=== PATIENT | female | born 1965 | race African-American/Black ===

== ENCOUNTER 2017-05-31 11:05 | Emergency (ER) | payer OTHER ==
--- NOTE | 2017-05-31 11:53 | ER ---
Nurse's Notes [facility] Name: Chartio Michael Age: 52 yrs Sex: Female : 1965 Arrival Date: 05/31/2017 Time: 11:11 Bed 13 Private MD: Diagnosis: Low back pain Presentation: 05/31 11:23 Presenting complaint: Patient states: Strained back getting out of bed yesterday, c/o hb low back pain 06/20. Transition of care: patient was not received from another setting of care. Onset of symptoms was May 30, 2017. Initial Sepsis Screen: Does the patient meet any 2 criteria? No. Patient's initial sepsis screen is negative. Does the patient have a suspected source of infection? No. Patient's initial sepsis screen is negative. Care prior to arrival: None. 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 - Social history:: Smoking status: Patient/guardian denies using tobacco. Screenin:41 Abuse screen: Denies threats or abuse. Denies injuries from another. Nutritional aj screening: No deficits noted. Tuberculosis screening: No symptoms or risk factors identified. Fall Risk None identified. Assessment: 11:41 General: Appears in no apparent distress. comfortable, Behavior is calm, cooperative, aj appropriate for age. Pain: Complains of pain in low back area and mid back area. Neuro: Level of Consciousness is awake, alert, obeys commands, Oriented to person, place, time, situation. Respiratory: Airway is patent Respiratory effort is even, unlabored, Respiratory pattern is regular, symmetrical. : Denies burning with urination, urinary frequency, urgency, vaginal bleeding. Derm: Skin is normal. Musculoskeletal: Circulation, motion, and sensation intact. Range of motion: intact in all extremities, Reports pain in low back area and mid back area. 12:24 Reassessment: Patient appears in no apparent distress at this time. No changes from aj previously documented assessment. Patient and/or family updated on plan of care and expected duration. Pain level reassessed. Patient is alert, oriented x 3, equal unlabored respirations, skin warm/dry/pink. Vital Signs: 11:24 BP 174 / 97; Pulse 79; Resp 14; Temp 97.8; Pulse Ox 100% on R/A; Weight 72.57 kg; hb Height 5 ft. 3 in. (160.02 cm); Pain 5/10; 11:24 Body Mass Index 28.34 (72.57 kg, 160.02 cm) hb ED Course: 11:11 Patient arrived in ED. sb2 11:24 Triage completed. hb 11:25 Arm band placed on left wrist. 11:31 Chi Holder PA is PHCP. cp 11:31 Alexys Yarbrough MD is Attending Physician. cp 11:41 Chichi Staley, RN is Primary Nurse. aj 11:41 Patient has correct armband on for positive identification. aj 12:24 No provider procedures requiring assistance completed. Patient did not have IV access aj during this emergency room visit. Administered Medications: No medications were administered Outcome: 11:52 Discharge ordered by MD. cp 12:24 Discharged to home ambulatory. aj 12:24 Condition: good 12:24 Discharge instructions given to patient, Instructed on discharge instructions, follow up and referral plans. medication usage, Demonstrated understanding of instructions, follow-up care, medications, Prescriptions given X 2. 12:25 Patient left the ED. aj Signatures: Chichi Staley RN Chi Yanez PA PA cp Baxter, Heather, RN RN Alice Young sb2
--- NOTE | 2017-05-31 11:53 | EDPHYS ---
Physician Documentation [facility] Name: Charito Michael Age: 52 yrs Sex: Female : 1965 Arrival Date: 05/31/2017 Time: 11:11 Bed 13 Private MD: ED Physician Alexys Yarbrough HPI: 05/31 11:39 This 52 yrs old Black Female presents to ER via Ambulatory with complaints of Back Pain.cp 11:39 The patient presents with pain that is acute. The symptoms are located in the mid back cp area. Onset: The symptoms/episode began/occurred this morning. The pain does not radiate. Associated signs and symptoms: Pertinent negatives: abdominal pain, chest pain, constipation, dysuria, fever, hematuria, incontinence, numbness, tingling, urinary retention, weakness. 11:40 The problem was sustained injury occurred getting out of bed this morning. 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 - Social history:: Smoking status: Patient/guardian denies using tobacco. ROS: 11:41 Eyes: Negative for injury, pain, redness, and discharge. cp 11:41 Constitutional: Negative for body aches, chills, fever, poor PO intake. 11:41 ENT: Negative for drainage from ear(s), ear pain, sore throat, difficulty swallowing, difficulty handling secretions. 11:41 Neck: Negative for pain with movement, pain at rest, stiffness, tenderness, bony tenderness. 11:41 Cardiovascular: Negative for chest pain, edema, palpitations. 11:41 Respiratory: Negative for cough, shortness of breath, wheezing. 11:41 Abdomen/GI: Negative for abdominal pain, nausea, vomiting, and diarrhea, constipation, black/tarry stool, rectal bleeding, bowel incontinence. 11:41 Back: Positive for pain at rest, pain with movement, of the mid back area, Negative for decreased range of motion. 11:41 : Negative for urinary symptoms, flank pain, difficulty urinating, bladder incontinence. 11:41 Skin: Positive for rash, of the pelvis. 11:41 Neuro: Negative for altered mental status, headache, numbness, tingling, weakness. 11:41 All other systems are negative. Exam: 11:44 Head/Face: Normocephalic, atraumatic. cp 11:44 Constitutional: The patient appears in no acute distress, alert, awake, comfortable, non-diaphoretic, non-toxic, well developed, well nourished. 11:44 Eyes: Periorbital structures: appear normal, Conjunctiva: normal, no exudate, no cp injection, Lids and lashes: appear normal, bilaterally. 11:44 ENT: External ear(s): are unremarkable, Nose: is normal, Mouth: is normal. 11:44 Chest/axilla: Inspection: normal. 11:44 Cardiovascular: Rate: normal, Rhythm: regular. 11:44 Respiratory: the patient does not display signs of respiratory distress, Respirations: normal, no use of accessory muscles, no retractions, no splinting, no tachypnea, labored breathing, is not present, Breath sounds: are clear throughout, no decreased breath sounds, no stridor, no wheezing. 11:44 Abdomen/GI: Inspection: abdomen appears normal, Palpation: abdomen is soft and non-tender, in all quadrants, rebound tenderness, is not appreciated, voluntary guarding, is not appreciated, involuntary guarding, is not appreciated. 11:44 Back: pain, that is mild, of the mid back area, ROM is normal, vertebral tenderness, is not appreciated, muscle spasm, is not present, Straight leg raises: of both lower extremities does not illicit pain. 11:44 Neuro: Motor: moves all fours, strength is normal, Sensation: no obvious gross deficits, Gait: is steady, Deep tendon reflexes are 2+ (normal) in the right patellar, right Achilles, left patellar and left Achilles. Vital Signs: 11:24 BP 174 / 97; Pulse 79; Resp 14; Temp 97.8; Pulse Ox 100% on R/A; Weight 72.57 kg; hb Height 5 ft. 3 in. (160.02 cm); Pain 5/10; 11:24 Body Mass Index 28.34 (72.57 kg, 160.02 cm) hb MDM: 11:31 Patient medically screened. cp 11:50 Data reviewed: vital signs, nurses notes, lab test result(s), and as a result, I will cp discharge patient. 11:50 Differential diagnosis: Pyelonephritis ruptured disc, sprain, UTI, spinal stenosis, cp cauda equina. Counseling: I had a detailed discussion with the patient and/or guardian regarding: the historical points, exam findings, and any diagnostic results supporting the discharge/admit diagnosis, lab results, the need for outpatient follow up, a family practitioner, to return to the emergency department if symptoms worsen or persist or if there are any questions or concerns that arise at home. Response to treatment: There is no appreciated change of the patient's symptoms at this time. 05/31 11:39 Order name: Urine Dipstick--Ancillary (enter results); Complete Time: 12:18 bd 05/31 12:18 Interpretation: Normal except: UPROT 1+. cp Administered Medications: No medications were administered Disposition: 15:58 Co-signature as Attending Physician, Alexys Yarbrough MD I agree with the assessment and kdr plan of care. Disposition: 05/31/17 11:52 Discharged to Home. Impression: Low back pain. - Condition is Stable. - Discharge Instructions: Back Pain, Adult, Back Exercises, [id number]. - Prescriptions for Anaprox DS 550 mg Oral Tablet - take 1 tablet by ORAL route every 12 hours As needed; 20 tablet. Cyclobenzaprine 10 mg Oral Tablet - take 1 tablet by ORAL route every 8 hours As needed no driving while taking medication; 15 tablet. - Medication Reconciliation Form, Thank You Letter, Antibiotic Education, Prescription Opioid Use form. - Follow up: Private Physician; When: 1 - 2 days; Reason: Recheck today's complaints. - Problem is new. - Symptoms are unchanged. Signatures: Dispatcher [employer] Chichi Frausto RN RN aj Rittger, Kevin, MD MD kdr Page, Corey, PA PA cp Baxter, Heather, RN RN Corrections: (The following items were deleted from the chart) 06/01 10:24 05/31 12:00 Differential diagnosis: Cholelithiasis chronic back pain, Pyelonephritis cp ruptured disc, UTI, pyelonephritis, spinal stenosis cp
[2017-05-31 12:13] LABS: Urine Blood NEGATIVE (NEG); Urine Glucose NEGATIVE (NEG); Urine Protein 1+ (NEG); Urine pH 6.5 (5.0-7.0)
[2017-05-31 12:44] VITALS: BP 174/97; TEMP 97.8; O2SAT 100
== END 2017-05-31 12:25 | disposition home or self-care (01) ==
LOC: ER 11:05
DX: M54.5 Low back pain (principal); I10 Essential (primary) hypertension; Z21 Asymptomatic human immunodeficiency virus [HIV] infection status
CPT/HCPCS: 81003; 99282

== ENCOUNTER 2017-06-04 12:14 | Emergency (ER) | payer OTHER ==
--- NOTE | 2017-06-04 13:11 | EDPHYS ---
Physician Documentation [facility] Name: Charito Michael Age: 52 yrs Sex: Female : 1965 Arrival Date: 06/04/2017 Time: 12:16 Bed Treatment Private MD: Andrea Alvares ED Physician Ac Nixon HPI: 06/04 13:06 This 52 yrs old Black Female presents to ER via Ambulatory with complaints of Toothache.rn 13:06 The patient presents with pain. The problem is located in the mouth. Onset: The rn symptoms/episode began/occurred 1 month(s) ago. Duration: The symptoms are intermittent. Severity of symptoms: At their worst the symptoms were moderate, in the emergency department the symptoms are unchanged. The patient has experienced similar episodes in the past. The patient has been recently seen by a physician:. Reports tooth pain for 1 month, sees dentist tomorrow, states pain bothering her more today, no changes, no fever, no abscess, here for "pain pill". . 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 - Social history:: Smoking status: Patient/guardian denies using tobacco. - Family history:: not pertinent. - Hospitalizations: : No recent hospitalization is reported. ROS: 13:06 Constitutional: Negative for fever, chills, and weight loss, Eyes: Negative for injury, rn pain, redness, and discharge, ENT: + dental/gum pain Neck: Negative for injury, pain, and swelling, Cardiovascular: Negative for chest pain, palpitations, and edema, Respiratory: Negative for shortness of breath, cough, wheezing, and pleuritic chest pain, Abdomen/GI: Negative for abdominal pain, nausea, vomiting, diarrhea, and constipation, MS/Extremity: Negative for injury and deformity, Skin: Negative for injury, rash, and discoloration, Neuro: Negative for headache, weakness, numbness, tingling, and seizure. Exam: 13:06 Constitutional: This is a well developed, well nourished patient who is awake, alert, rn and in no acute distress. Head/Face: Normocephalic, atraumatic. Eyes: Pupils equal round and reactive to light, extra-ocular motions intact. Lids and lashes normal. Conjunctiva and sclera are non-icteric and not injected. Cornea within normal limits. Periorbital areas with no swelling, redness, or edema. ENT: + poor dentition with majority of teeth absent, no signs of abscess/swelling/exudate, MMM Neck: Trachea midline, no thyromegaly or masses palpated, and no cervical lymphadenopathy. Supple, full range of motion without nuchal rigidity, or vertebral point tenderness. No Meningismus. Vital Signs: 12:25 BP 178 / 96; Pulse 93; Resp 17; Temp 97.6(TE); Pulse Ox 99% on R/A; Weight 72.57 kg tw2 (R); Height 5 ft. 3 in. (160.02 cm); Pain 3/10; 12:25 Body Mass Index 28.34 (72.57 kg, 160.02 cm) tw2 MDM: 13:03 Patient medically screened. rn 13:06 Differential diagnosis: dental caries, gingivitis, dental abscess, gingivostomatitis. rn Data reviewed: vital signs, nurses notes, and as a result, I will discharge patient. Counseling: I had a detailed discussion with the patient and/or guardian regarding: the historical points, exam findings, and any diagnostic results supporting the discharge/admit diagnosis, the need for outpatient follow up, to return to the emergency department if symptoms worsen or persist or if there are any questions or concerns that arise at home. Special discussion: I discussed with the patient/guardian in detail that at this point there is no indication for admission to the hospital. It is understood, however, that if the symptoms persist or worsen the patient needs to return immediately for re-evaluation. Based on the history and exam findings, there is no indication for further emergent testing or inpatient evaluation. I discussed with the patient/guardian the need to see a dentist for further evaluation of the symptoms. ED course: Recommended outpt oral OTC meds and dental f/u tomorrow no signs of acute infection needing drainage/I\\T\\D today in ER, has dental f/u tomorrow.. Administered Medications: No medications were administered Disposition: 06/04/17 13:11 Discharged to Home. Impression: Dentalgia. - Condition is Stable. - Discharge Instructions: Dental Pain. - Medication Reconciliation Form, Thank You Letter, Antibiotic Education, Prescription Opioid Use form. - Follow up: Private Physician; When: Tomorrow; Reason: Recheck today's complaints, Re-evaluation by your physician. - Problem is an ongoing problem. - Symptoms are unchanged. Signatures: Kelly Deleon, RN RN iw Ac Nixon MD MD rn Wise, Tara, RN RN tw2
--- NOTE | 2017-06-04 13:11 | ER ---
Nurse's Notes [facility] Name: Charito Michael Age: 52 yrs Sex: Female : 1965 Arrival Date: 06/04/2017 Time: 12:16 Bed Treatment Private MD: Andrea Alvares Diagnosis: Dentalgia Presentation: 06/04 12:24 Presenting complaint: Patient states: "i get my teeth fixed tomorrow but it started tw2 hurting real bad". Transition of care: patient was not received from another setting of care. Onset of symptoms was June 04, 2017. Initial Sepsis Screen: Does the patient meet any 2 criteria? No. Patient's initial sepsis screen is negative. Does the patient have a suspected source of infection? No. Patient's initial sepsis screen is negative. Care prior to arrival: None. 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 - Social history:: Smoking status: Patient/guardian denies using tobacco. - Family history:: not pertinent. - Hospitalizations: : No recent hospitalization is reported. Screenin:17 Abuse screen: Denies threats or abuse. Denies injuries from another. Nutritional iw screening: No deficits noted. Tuberculosis screening: No symptoms or risk factors identified. Fall Risk None identified. Assessment: 13:17 General: Appears in no apparent distress. Behavior is calm, cooperative. Pain: iw Complains of pain in mouth. Neuro: Level of Consciousness is awake, alert, obeys commands, Oriented to person, place, time, situation, Moves all extremities. Full function. Cardiovascular: Patient's skin is warm and dry. Respiratory: Respiratory effort is even, unlabored. EENT: Reports pain. Musculoskeletal: Range of motion: intact in all extremities. Vital Signs: 12:25 BP 178 / 96; Pulse 93; Resp 17; Temp 97.6(TE); Pulse Ox 99% on R/A; Weight 72.57 kg tw2 (R); Height 5 ft. 3 in. (160.02 cm); Pain 3/10; 12:25 Body Mass Index 28.34 (72.57 kg, 160.02 cm) tw2 ED Course: 12:16 Patient arrived in ED. rg4 12:17 Andrea Alvares MD is Private Physician. rg4 12:25 Triage completed. tw2 12:25 Arm band placed on. tw2 13:03 Ac Nixon MD is Attending Physician. rn 13:17 Kelly Deleon RN is Primary Nurse. iw 13:18 No provider procedures requiring assistance completed. Patient did not have IV access iw during this emergency room visit. 13:22 Patient has correct armband on for positive identification. iw Administered Medications: No medications were administered Outcome: 13:11 Discharge ordered by . rn 13:22 Discharged to home ambulatory. iw 13:22 Condition: good 13:22 Discharge instructions given to patient, Instructed on discharge instructions, follow up and referral plans. Demonstrated understanding of instructions, follow-up care. 13:22 Patient left the ED. iw Signatures: Kelly Deleon, RN RN iw Ac Nixon MD MD rn Wise, Tara, RN RN tw2 Quyen Vela rg4
[2017-06-04 13:36] VITALS: BP 178/96; TEMP 97.6; O2SAT 99
== END 2017-06-04 13:22 | disposition home or self-care (01) ==
LOC: ER 12:14
DX: K08.89 Other specified disorders of teeth and supporting structures (principal); I10 Essential (primary) hypertension; Z21 Asymptomatic human immunodeficiency virus [HIV] infection status
CPT/HCPCS: 99281

== ENCOUNTER 2017-07-11 15:05 | Emergency (ER) | payer OTHER ==
--- NOTE | 2017-07-11 16:11 | ER ---
Nurse's Notes [facility] Name: Charito Michael Age: 52 yrs Sex: Female : 1965 Arrival Date: 07/11/2017 Time: 15:09 Bed 8 Private MD: Andrea Alvares Diagnosis: Bronchitis, not specified as acute or chronic Presentation: 07/11 15:15 Presenting complaint: Patient states: Cough and congestion that is chronic and has not aj improved. Transition of care: patient was not received from another setting of care. Onset of symptoms was April 2017. Care prior to arrival: None. 15:15 Method Of Arrival: Ambulatory aj 15:15 Acuity: GIULIANO 4 aj 16:20 Risk Assessment: Do you want to hurt yourself or someone else? Patient reports no iw desire to harm self or others. Initial Sepsis Screen: Does the patient meet any 2 criteria? No. Patient's initial sepsis screen is negative. Does the patient have a suspected source of infection? No. Patient's initial sepsis screen is negative. Triage Assessment: 15:16 General: Appears in no apparent distress. comfortable, Behavior is calm, cooperative, aj appropriate for age. Pain: Denies pain. EENT: Reports nasal congestion nasal discharge. Neuro: Level of Consciousness is awake, alert, obeys commands, Oriented to person, place, time, situation, Appropriate for age. Respiratory: Reports cough that is Breath sounds are clear bilaterally. Derm: Skin is intact, is healthy with good turgor, Skin is pink, warm \\T\\ dry. normal. 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 - Social history:: Smoking status: Patient/guardian denies using tobacco. - Ebola Screening: : Patient negative for fever greater than or equal to 101.5 degrees Fahrenheit, and additional compatible Ebola Virus Disease symptoms Patient denies exposure to infectious person Patient denies travel to an Ebola-affected area in the 21 days before illness onset No symptoms or risks identified at this time. Screenin:26 Abuse screen: Denies threats or abuse. Denies injuries from another. Nutritional iw screening: No deficits noted. Tuberculosis screening: No symptoms or risk factors identified. Fall Risk None identified. Assessment: 15:26 General: Appears in no apparent distress. Behavior is calm, cooperative. Pain: Denies iw pain. Neuro: Level of Consciousness is awake, alert, obeys commands, Oriented to person, place, time, Moves all extremities. Full function. Cardiovascular: Patient's skin is warm and dry. Respiratory: Reports cough that is productive, Airway is patent Respiratory effort is even, unlabored, Breath sounds are clear bilaterally. Derm: Skin is pink, warm \\T\\ dry. normal. Musculoskeletal: Range of motion: intact in all extremities. Vital Signs: 15:16 BP 139 / 79; Pulse 96; Resp 19; Temp 97.3; Pulse Ox 100% on R/A; Weight 81.65 kg; aj Height 5 ft. 3 in. (160.02 cm); 15:16 Body Mass Index 31.89 (81.65 kg, 160.02 cm) aj ED Course: 15:09 Patient arrived in ED. mr 15:09 Andrea Alvares MD is Private Physician. mr 15:16 Triage completed. aj 15:16 Arm band placed on left wrist. Patient placed in an exam room. aj 15:18 Brown Moreland NP is PHCP. pm1 15:18 Alexys Yarbrough MD is Attending Physician. pm1 15:26 Kelly Deleon, HALLE is Primary Nurse. iw 15:26 Patient has correct armband on for positive identification. iw 15:26 No provider procedures requiring assistance completed. Patient did not have IV access iw during this emergency room visit. 15:55 Patient moved to radiology via wheelchair. ml 15:58 X-ray completed. Patient tolerated procedure well. Patient moved back from radiology. ml 15:59 Chest Pa And Lat (2 Views) XRAY In Process Unspecified. EDMS 16:10 Andrea Alvares MD is Referral Physician. pm1 Administered Medications: No medications were administered Outcome: 16:10 Discharge ordered by MD. pm1 16:19 Discharged to home ambulatory. iw 16:19 Condition: good 16:19 Discharge instructions given to patient, Instructed on discharge instructions, follow up and referral plans. medication usage, Demonstrated understanding of instructions, follow-up care, medications, Prescriptions given X 1. 16:20 Patient left the ED. iw Signatures: Dispatcher [employer] EDChichi Wilson, Samira Nelson RN, Irene, RN RN iw Lopez, Brown Jackson, WARP KNITTER WARP KNITTER pm1
--- NOTE | 2017-07-11 16:11 | EDPHYS ---
Physician Documentation [facility] Name: Charito Michael Age: 52 yrs Sex: Female : 1965 Arrival Date: 07/11/2017 Time: 15:09 Bed 8 Private MD: Andrea Alvares ED Physician Alexys Yarbrough HPI: 07/11 15:34 This 52 yrs old Black Female presents to ER via Ambulatory with complaints of Cough, pm1 Congestion. 15:34 The patient or guardian reports cough, with productive sputum, that is green. Onset: pm1 The symptoms/episode began/occurred 1 week(s) ago. Modifying factors: The symptoms are alleviated by nothing, the symptoms are aggravated by nothing. Associated signs and symptoms: Pertinent positives: rhinorrhea, Pertinent negatives: chest pain, ear ache, fever, sore throat, SOB. The patient has experienced similar episodes in the past, a few times. The patient has not recently seen a physician, the patient's primary care provider is Dr. Alvares. 15:34 Patient denies history of CHF. pm1 VICE PROVOST: 15:16 LMP N/A - Post-menopause aj Historical: - Allergies: 15:16 NKA; aj - Home Meds: 15:16 "blood pressure pills" [Active]; "pain pills" [Active]; alprazolam 2 mg Oral tab 1 tab aj 3 times per day [Active]; - PMHx: 15:16 CHF; COPD; HIV; Hypertension; seasonal allergies; aj - PSHx: 15:16 None; aj - Immunization history:: Adult Immunizations up to date. - Social history:: Smoking status: Patient/guardian denies using tobacco. - Ebola Screening: : Patient negative for fever greater than or equal to 101.5 degrees Fahrenheit, and additional compatible Ebola Virus Disease symptoms Patient denies exposure to infectious person Patient denies travel to an Ebola-affected area in the 21 days before illness onset No symptoms or risks identified at this time. ROS: 15:34 Constitutional: Negative for fever, chills, and weight loss, Eyes: Negative for injury, pm1 pain, redness, and discharge, ENT: Negative for injury, pain, and discharge, Neck: Negative for injury, pain, and swelling, Cardiovascular: Negative for chest pain, palpitations, and edema. 15:34 Abdomen/GI: Negative for abdominal pain, nausea, vomiting, diarrhea, and constipation, Back: Negative for injury and pain, MS/Extremity: Negative for injury and deformity, Skin: Negative for injury, rash, and discoloration, Neuro: Negative for headache, weakness, numbness, tingling, and seizure. 15:34 Respiratory: Positive for cough, with green sputum, Negative for dyspnea on exertion, shortness of breath, wheezing. Exam: 15:34 Constitutional: This is a well developed, well nourished patient who is awake, alert, pm1 and in no acute distress. Head/Face: Normocephalic, atraumatic. Eyes: Pupils equal round and reactive to light, extra-ocular motions intact. Lids and lashes normal. Conjunctiva and sclera are non-icteric and not injected. Cornea within normal limits. Periorbital areas with no swelling, redness, or edema. ENT: Nares patent. No nasal discharge, no septal abnormalities noted. Tympanic membranes are normal and external auditory canals are clear. Oropharynx with no redness, swelling, or masses, exudates, or evidence of obstruction, uvula midline. Mucous membranes moist. Neck: Trachea midline, no thyromegaly or masses palpated, and no cervical lymphadenopathy. Supple, full range of motion without nuchal rigidity, or vertebral point tenderness. No Meningismus. Chest/axilla: Normal chest wall appearance and motion. Nontender with no deformity. No lesions are appreciated. Cardiovascular: Regular rate and rhythm with a normal S1 and S2. No gallops, murmurs, or rubs. Normal PMI, no JVD. No pulse deficits. 15:34 Abdomen/GI: Soft, non-tender, with normal bowel sounds. No distension or tympany. No guarding or rebound. No evidence of tenderness throughout. Back: No spinal tenderness. No costovertebral tenderness. Full range of motion. Skin: Warm, dry with normal turgor. Normal color with no rashes, no lesions, and no evidence of cellulitis. MS/ Extremity: Pulses equal, no cyanosis. Neurovascular intact. Full, normal range of motion. 15:34 Respiratory: the patient does not display signs of respiratory distress, Respirations: normal, Breath sounds: are clear throughout. 15:34 Neuro: Orientation: is normal, Motor: moves all fours, strength is 5/5 in all extremities, Gait: is steady, at a normal pace, without difficulty. Vital Signs: 15:16 BP 139 / 79; Pulse 96; Resp 19; Temp 97.3; Pulse Ox 100% on R/A; Weight 81.65 kg; aj Height 5 ft. 3 in. (160.02 cm); 15:16 Body Mass Index 31.89 (81.65 kg, 160.02 cm) aj MDM: 15:18 Patient medically screened. pm1 15:36 Data reviewed: vital signs. Data interpreted: Pulse oximetry: on room air is 100 %. pm1 Interpretation: normal. 16:09 ED course: Will give antibiotic therapy for diagnosis of bronchitis due to HIV history. pm1 16:10 Counseling: I had a detailed discussion with the patient and/or guardian regarding: the pm1 historical points, exam findings, and any diagnostic results supporting the discharge/admit diagnosis, radiology results, the need for outpatient follow up, to return to the emergency department if symptoms worsen or persist or if there are any questions or concerns that arise at home. 07/11 16:19 Order name: Urine Dipstick--Ancillary (enter results) bd 07/11 15:27 Order name: Chest Pa And Lat (2 Views) XRAY pm1 07/11 15:28 Order name: Urine Dipstick-Ancillary (obtain specimen); Complete Time: 16:13 pm1 07/11 15:28 Order name: Urine Test (obtain specimen); Complete Time: 16:18 pm1 Administered Medications: No medications were administered Disposition: 22:12 Co-signature as Attending Physician, Alexys Yarbrough MD I agree with the assessment and kdr plan of care. Disposition: 07/11/17 16:10 Discharged to Home. Impression: Bronchitis, not specified as acute or chronic. - Condition is Stable. - Discharge Instructions: Acute Bronchitis. - Prescriptions for Zithromax Z- Luis Felipe 250 mg Oral Tablet - take 1 tablet by ORAL route as directed for 5 days Day 1 - take two (2) tablets one time. Day 2, 3, 4 , 5 take one (1) tablet once daily.; 6 tablet. - Medication Reconciliation Form, Thank You Letter, Antibiotic Education form. - Follow up: Emergency Department; When: As needed; Reason: Worsening of condition. Follow up: Andrea Alvares MD; When: 2 - 3 days; Reason: Recheck today's complaints, Continuance of care, Re-evaluation by your physician. - Problem is new. - Symptoms have improved. Signatures: Dispatcher [employer] EDChichi Wilson, Alexys Feng RN, MD MD kdr Williams, Irene, RN RN iw Brown [place], [employer] pm1 Corrections: (The following items were deleted from the chart) 16:20 16:10 07/11/2017 16:10 Discharged to Home. Impression: Bronchitis, not specified as iw acute or chronic. Condition is Stable. Forms are Medication Reconciliation Form, Thank You Letter, Antibiotic Education, Prescription Opioid Use. Follow up: Emergency Department; When: As needed; Reason: Worsening of condition. Follow up: Andrea Alvares; When: 2 - 3 days; Reason: Recheck today's complaints, Continuance of care, Re-evaluation by your physician. Problem is new. Symptoms have improved. pm1
--- NOTE | 2017-07-11 16:22 | RAD REPORT ---
EXAM DESCRIPTION: RAD - Chest Pa And Lat (2 Views) - 07/11/2017 4:00 pm CLINICAL HISTORY: Persistent cough and congestion COMPARISON: March 18 TECHNIQUE: PA and lateral views of the chest were obtained. FINDINGS: The lungs are clear of peripheral mass, consolidation or failure finding. Interstitial mar kings are accentuated by shallow inspiration. True change from the prior study is not suspected. He art size is upper normal. No vascular engorgement. No pleural effusion or pneumothorax seen. No acut e bony finding noted. No aortic abnormality. IMPRESSION: No acute cardiopulmonary process. No significant change from the prior study.
[2017-07-11 16:26] LABS: Urine Blood NEGATIVE (NEG); Urine Glucose NEGATIVE (NEG); Urine Protein 1+ (NEG)
[2017-07-11 16:31] VITALS: BP 139/79; TEMP 97.3; O2SAT 100
== END 2017-07-11 16:20 | disposition home or self-care (01) ==
LOC: ER 15:05
DX: J44.9 Chronic obstructive pulmonary disease, unspecified (principal); I10 Essential (primary) hypertension; I11.0 Hypertensive heart disease with heart failure; I50.9 Heart failure, unspecified
CPT/HCPCS: 71046; 81003; 99283

== ENCOUNTER 2017-07-31 12:13 | Emergency (ER) | payer OTHER ==
--- NOTE | 2017-07-31 12:49 | EDPHYS ---
Physician Documentation [facility] Name: Charito Michael Age: 52 yrs Sex: Female : 1965 Arrival Date: 07/31/2017 Time: 12:16 Bed 5 Private MD: Matt Khalil E ED Physician Matt Roca HPI: 07/31 12:50 This 52 yrs old Black Female presents to ER via Ambulatory with complaints of Flu jr8 Symptoms. 12:50 Patient stated that she has had sore throat and runny nose since yesterday. Body aches jr8 as well. Denies any other s/s . Onset: The symptoms/episode began/occurred acutely, yesterday. Severity of symptoms: At their worst the symptoms were mild in the emergency department the symptoms are unchanged. It is unknown whether or not the patient has had similar symptoms in the past. The patient has not recently seen a physician. 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 tw2 Historical: - Allergies: 12:25 NKA; tw2 - Home Meds: 12:25 "blood pressure pills" [Active]; "pain pills" [Active]; alprazolam 2 mg Oral tab 1 tab tw2 3 times per day [Active]; - PMHx: 12:25 HIV; COPD; CHF; seasonal allergies; Hypertension; tw2 - PSHx: 12:25 None; tw2 - Immunization history:: Adult Immunizations unknown. - Social history:: Smoking status: Patient/guardian denies using tobacco. - Ebola Screening: : Patient denies travel to an Ebola-affected area in the 21 days before illness onset. ROS: 12:50 Eyes: Negative for injury, pain, redness, and discharge, Neck: Negative for injury, jr8 pain, and swelling, Cardiovascular: Negative for chest pain, palpitations, and edema, Respiratory: Negative for shortness of breath, cough, wheezing, and pleuritic chest pain, Abdomen/GI: Negative for abdominal pain, nausea, vomiting, diarrhea, and constipation, Back: Negative for injury and pain, MS/Extremity: Negative for injury and deformity, Skin: Negative for injury, rash, and discoloration, Neuro: Negative for headache, weakness, numbness, tingling, and seizure. 12:50 Constitutional: Positive for body aches, Negative for fever. 12:50 ENT: Positive for rhinorrhea, sore throat, Negative for drainage from ear(s), ear pain, sinus congestion, difficulty swallowing, difficulty handling secretions, hoarseness. Exam: 12:50 Head/Face: Normocephalic, atraumatic. Eyes: Pupils equal round and reactive to light, jr8 extra-ocular motions intact. Lids and lashes normal. Conjunctiva and sclera are non-icteric and not injected. Cornea within normal limits. Periorbital areas with no swelling, redness, or edema. ENT: Nares patent. No nasal discharge, no septal abnormalities noted. Tympanic membranes are normal and external auditory canals are clear. Oropharynx with no redness, swelling, or masses, exudates, or evidence of obstruction, uvula midline. Mucous membranes moist. Neck: Trachea midline, no thyromegaly or masses palpated, and no cervical lymphadenopathy. Supple, full range of motion without nuchal rigidity, or vertebral point tenderness. No Meningismus. Cardiovascular: Regular rate and rhythm with a normal S1 and S2. No gallops, murmurs, or rubs. Normal PMI, no JVD. No pulse deficits. Respiratory: Lungs have equal breath sounds bilaterally, clear to auscultation and percussion. No rales, rhonchi or wheezes noted. No increased work of breathing, no retractions or nasal flaring. Abdomen/GI: Soft, non-tender, with normal bowel sounds. No distension or tympany. No guarding or rebound. No evidence of tenderness throughout. Back: No spinal tenderness. No costovertebral tenderness. Full range of motion. Skin: Warm, dry with normal turgor. Normal color with no rashes, no lesions, and no evidence of cellulitis. MS/ Extremity: Pulses equal, no cyanosis. Neurovascular intact. Full, normal range of motion. Neuro: Awake and alert, GCS 15, oriented to person, place, time, and situation. Cranial nerves II-XII grossly intact. Motor strength 5/5 in all extremities. Sensory grossly intact. Cerebellar exam normal. Normal gait. Vital Signs: 12:24 BP 172 / 95; Pulse 95; Resp 18; Temp 98.7(O); Pulse Ox 99% on R/A; Weight 81.65 kg (R); tw2 Height 5 ft. 3 in. (160.02 cm); Pain 3/10; 12:49 BP 155 / 93; Pulse 74; Resp 17; Pulse Ox 98% on R/A; tw2 12:24 Body Mass Index 31.89 (81.65 kg, 160.02 cm) tw2 MDM: 12:20 Patient medically screened. jr8 12:47 Data reviewed: vital signs, nurses notes, and as a result, I will discharge patient. jr8 Data interpreted: Pulse oximetry: on room air is 99 %. Interpretation: normal. Counseling: I had a detailed discussion with the patient and/or guardian regarding: the historical points, exam findings, and any diagnostic results supporting the discharge/admit diagnosis, the need for outpatient follow up, a family practitioner, to return to the emergency department if symptoms worsen or persist or if there are any questions or concerns that arise at home. 12:52 Differential Diagnosis flu, common cold, viral pharyngitis, strep throat, pneumonia . jr8 Administered Medications: No medications were administered Disposition: 07/31/17 12:49 Discharged to Home. Impression: Acute nasopharyngitis [common cold]. - Condition is Stable. - Discharge Instructions: Viral Infections. - Prescriptions for Tessalon Perles 100 mg Oral Capsule - take 1 capsule by ORAL route every 8 hours As needed; 15 capsule. Medrol (Luis Felipe) 4 mg Oral Tablets, Dose Pack - take 1 tablet by ORAL route as directed - follow package instructions; 1 packet. - Medication Reconciliation Form, Thank You Letter, Antibiotic Education, Prescription Opioid Use form. - Follow up: Matt Khalil MD; When: 5 - 6 days; Reason: Recheck today's complaints, Continuance of care, Re-evaluation by your physician. - Problem is new. - Symptoms have improved. Addendum: 08/02/2017 14:42 Co-signature as Attending Physician, Matt Roca MD I agree with the assessment and w a plan of care. Signatures: Dimitri Sanchez PA PA jr8 Corrie Antunez RN RN tw2 Matt Roca MD MD ks Corrections: (The following items were deleted from the chart) 07/31 12:53 12:49 07/31/2017 12:49 Discharged to Home. Impression: Acute nasopharyngitis [common tw2 cold]. Condition is Stable. Forms are Medication Reconciliation Form, Thank You Letter, Antibiotic Education, Prescription Opioid Use. Follow up: aMtt Khalil; When: 5 - 6 days; Reason: Recheck today's complaints, Continuance of care, Re-evaluation by your physician. Problem is new. Symptoms have improved. jr8
--- NOTE | 2017-07-31 12:49 | ER ---
Nurse's Notes [facility] Name: Charito Michael Age: 52 yrs Sex: Female : 1965 Arrival Date: 07/31/2017 Time: 12:16 Bed 5 Private MD: Matt Khalil E Diagnosis: Acute nasopharyngitis [common cold] Presentation: 07/31 12:23 Presenting complaint: Patient states: since yesterday my throat has been sore and i tw2 have a runny nose, didn't take BP meds this morning. Transition of care: patient was not received from another setting of care. Onset of symptoms was July 31, 2017. Risk Assessment: Do you want to hurt yourself or someone else? Patient reports no desire to harm self or others. Initial Sepsis Screen: Does the patient meet any 2 criteria? No. Patient's initial sepsis screen is negative. Does the patient have a suspected source of infection? No. Patient's initial sepsis screen is negative. Care prior to arrival: None. 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 tw2 Historical: - Allergies: 12:25 NKA; tw2 - Home Meds: 12:25 "blood pressure pills" [Active]; "pain pills" [Active]; alprazolam 2 mg Oral tab 1 tab tw2 3 times per day [Active]; - PMHx: 12:25 HIV; COPD; CHF; seasonal allergies; Hypertension; tw2 - PSHx: 12:25 None; tw2 - Immunization history:: Adult Immunizations unknown. - Social history:: Smoking status: Patient/guardian denies using tobacco. - Ebola Screening: : Patient denies travel to an Ebola-affected area in the 21 days before illness onset. Screenin:25 Abuse screen: Denies threats or abuse. Nutritional screening: No deficits noted. tw2 Tuberculosis screening: No symptoms or risk factors identified. Fall Risk None identified. Assessment: 12:25 General: Appears in no apparent distress. Behavior is calm, cooperative, appropriate tw2 for age. Pain: Complains of pain in uvula, left aspect of posterior pharynx and right aspect of posterior pharynx. Neuro: Level of Consciousness is awake, alert, obeys commands, Oriented to person, place, time, situation. Cardiovascular: Denies chest pain, shortness of breath, Capillary refill < 3 seconds Patient's skin is warm and dry. Respiratory: Airway is patent Respiratory effort is even, unlabored, Respiratory pattern is regular, symmetrical. GI: No signs and/or symptoms were reported involving the gastrointestinal system. : No signs and/or symptoms were reported regarding the genitourinary system. EENT: No signs and/or symptoms were reported regarding the EENT system. EENT: Reports sore throat. Derm: No signs and/or symptoms reported regarding the dermatologic system. Musculoskeletal: No signs and/or symptoms reported regarding the musculoskeletal system. 12:49 Reassessment: Patient appears in no apparent distress at this time. No changes from tw2 previously documented assessment. Patient and/or family updated on plan of care and expected duration. Pain level reassessed. Patient is alert, oriented x 3, equal unlabored respirations, skin warm/dry/pink. Vital Signs: 12:24 BP 172 / 95; Pulse 95; Resp 18; Temp 98.7(O); Pulse Ox 99% on R/A; Weight 81.65 kg (R); tw2 Height 5 ft. 3 in. (160.02 cm); Pain 3/10; 12:49 BP 155 / 93; Pulse 74; Resp 17; Pulse Ox 98% on R/A; tw2 12:24 Body Mass Index 31.89 (81.65 kg, 160.02 cm) tw2 ED Course: 12:16 Patient arrived in ED. sb2 12:16 Matt Khalil MD is Private Physician. sb2 12:20 [facility]. jr8 12:20 Matt Roca MD is Attending Physician. jr8 12:23 Corrie Antunez, HALLE is Primary Nurse. tw2 12:24 Triage completed. tw2 12:24 Arm band placed on. tw2 12:25 Bed in low position. Pulse ox on. NIBP on. tw2 12:48 Matt Khalil MD is Referral Physician. jr8 12:50 No provider procedures requiring assistance completed. Patient did not have IV access tw2 during this emergency room visit. Administered Medications: No medications were administered Outcome: :49 Discharge ordered by . jr8 12:50 Discharged to home ambulatory. tw2 12:50 Condition: stable 12:50 Discharge instructions given to patient, Instructed on discharge instructions, follow up and referral plans. medication usage, Demonstrated understanding of instructions, follow-up care, medications, Prescriptions given X 2. 12:53 Patient left the ED. tw2 Signatures: Dimitri Sanchez PA PA jr8 Corrie Antunez RN RN tw2 Alice Young sb2
[2017-07-31 14:26] VITALS: BP 172/95; TEMP 98.7; O2SAT 99
== END 2017-07-31 12:53 | disposition home or self-care (01) ==
LOC: ER 12:13
DX: J00 Acute nasopharyngitis [common cold] (principal); J44.9 Chronic obstructive pulmonary disease, unspecified; I50.9 Heart failure, unspecified; I10 Essential (primary) hypertension; Z21 Asymptomatic human immunodeficiency virus [HIV] infection status
CPT/HCPCS: 99283

== ENCOUNTER 2017-08-09 12:23 | Emergency (ER) | payer OTHER ==
[2017-08-09 13:20] LABS: Absolute Lymphocytes (CBC) 0.9 K/uL (0.7-4.9); Eosinophils % 3.7 % (0-4.4); Hematocrit 26.4 % (36.0-45.0); MCH 22.1 pg (27.0-35.0); MCV 76.8 fL (80-100)
--- NOTE | 2017-08-09 13:21 | RAD REPORT ---
EXAM DESCRIPTION: RAD - Chest Pa And Lat (2 Views) - 08/09/2017 1:08 pm CLINICAL HISTORY: cough, congestion Chest pain. COMPARISON: Chest Pa And Lat (2 Views) dated 07/11/2017; Chest Pa And Lat (2 Views) dated 03/18/2017; C hest Pa And Lat (2 Views) dated 03/22/2016; Chest Single View dated 11/02/2015 FINDINGS: Prominence of the pulmonary interstitial markings present bilaterally suggesting reactive airway disease versus interstitial pneumonia. The heart is upper limit normal size. No displaced frac tures. IMPRESSION: Mild interstitial pneumonitis suspected.
[2017-08-09 13:38] LABS: Potassium 4.3 mmol/L (3.5-5.1)
[2017-08-09 13:41] LABS: Absolute Monocytes 0.3 K/uL (0.1-1.3); Basophils % 0.5 % (0-1.3); Lymphocytes % 26.7 % (15.3-44.8); MPV 8.4 fL (7.6-11.3); Monocytes % 9.1 % (3.3-12.3); RBC Red Blood Cell Count 3.44 M/uL (3.86-4.86)
--- NOTE | 2017-08-09 14:06 | EDPHYS ---
Physician Documentation [facility] Name: Charito Michael Age: 52 yrs Sex: Female : 1965 Arrival Date: 08/09/2017 Time: 12:26 Bed 15 Private MD: Unknown, Unknown ED Physician Ac Nixon HPI: 08/09 12:45 This 52 yrs old Black Female presents to ER via Ambulatory with complaints of Flu jmm Symptoms. 12:45 The patient or guardian reports cough, described as moderate. Onset: The jmm symptoms/episode began/occurred gradually, 1 week(s) ago. The patient has experienced similar episodes in the past. This is a 52 year old female with a hx of HTN, COPD, HIV that presents to the ED with 1 week of cough with lower back pain. Patient states she does take her antiretroviral medication but states her most recent evaluation was in 2016. Patient denies fever. . Historical: - Allergies: 12:32 NKA; ss - PMHx: 12:32 CHF; COPD; HIV; Hypertension; seasonal allergies; ss - PSHx: 12:32 None; ss - Immunization history:: Adult Immunizations up to date. - Social history:: Smoking status: Patient/guardian denies using tobacco. - Ebola Screening: : Patient denies exposure to infectious person Patient denies travel to an Ebola-affected area in the 21 days before illness onset. ROS: 12:45 Constitutional: Negative for fever, chills, and weight loss. jmm 12:45 Respiratory: Positive for cough. 12:45 Back: Positive for pain at rest. 12:45 All other systems are negative. Exam: 12:45 Head/Face: atraumatic. Cardiovascular: Regular rate and rhythm. No gallops, murmurs, jmm or rubs. Full/Equal distal pulses. Respiratory: Lungs have equal breath sounds bilaterally, clear to auscultation. No rales, rhonchi or wheezes noted. No increased work of breathing, no retractions or nasal flaring. Abdomen/GI: Soft, non-tender, with normal bowel sounds. No distension or tympany. No guarding or rebound. No evidence of tenderness throughout. 12:45 Constitutional: The patient appears in no acute distress, alert, awake. 12:45 Back: ROM is normal. 12:45 Musculoskeletal/extremity: ROM: intact in all extremities. 12:45 Skin: Appearance: Color: normal in color. 12:45 Neuro: Orientation: is normal, Mentation: is normal, Memory: is normal. 12:45 Psych: Behavior/mood is pleasant, cooperative. Vital Signs: 12:32 BP 160 / 91; Pulse 95; Resp 16; Temp 97.7(O); Pulse Ox 100% on R/A; Weight 56.7 kg; ss Height 5 ft. 3 in. (160.02 cm); Pain 8/10; 14:03 BP 149 / 95; Pulse 84; Resp 15; Pulse Ox 100% on R/A; mh5 12:32 Body Mass Index 22.14 (56.70 kg, 160.02 cm) ss MDM: 12:44 [facility] screened[facility] 14:04 Data reviewed: vital signs, nurses notes, lab test result(s), radiologic studies, [facility]. Counseling: I had a detailed discussion with the patient and/or guardian regarding: the historical points, exam findings, and any diagnostic results supporting the discharge/admit diagnosis, lab results, radiology results, the need for outpatient follow up, to return to the emergency department if symptoms worsen or persist or if there are any questions or concerns that arise at home. 08/09 12:44 Order name: CBC with Diff; Complete Time: 16:50 [facility] 08/09 12:44 Order name: BMP; Complete Time: 13:53 [facility] 08/09 12:44 Order name: Saline Lock; Complete Time: 13:01 [facility] 08/09 12:44 Order name: Chest Pa And Lat (2 Views) XRAY; Complete Time: 13:22 [facility] 08/09 13:51 Order name: CBC Smear Scan; Complete Time: 16:50 EDMS Administered Medications: No medications were administered Disposition: 18:19 Co-signature as Attending Physician, cA Nixon MD. rn Disposition: 08/09/17 14:05 Discharged to Home. Impression: PNEUMONITIS. - Condition is Stable. - Discharge Instructions: Pneumonitis. - Prescriptions for Zithromax Z- Luis Felipe 250 mg Oral Tablet - take 1 tablet by ORAL route as directed for 5 days Day 1 - take two (2) tablets one time. Day 2, 3, 4 , 5 take one (1) tablet once daily.; 6 tablet. Bactrim DS 800- 160 mg Oral Tablet - take 1 tablet by ORAL route every 12 hours for 7 days; 14 tablet. Guaifenesin AC 10- 100 mg/5 mL Oral Liquid - take 5 milliliter by ORAL route every 4 hours As needed; 240 milliliter. - Medication Reconciliation Form, Thank You Letter, Antibiotic Education, Prescription Opioid Use form. - Follow up: Private Physician; When: 1 - 2 days; Reason: Continuance of care. Signatures: Dispatcher [employer] EDMS Arie Hidalgo PA PA jmm Nieto, Roman, MD MD rn Smirch, Shelby, RN RN ss Tracy Escamilla RN RN kr2 Corrections: (The following items were deleted from the chart) 14:41 14:05 08/09/2017 14:05 Discharged to Home. Impression: PNEUMONITIS. Condition is kr2 Stable. Forms are Medication Reconciliation Form, Thank You Letter, Antibiotic Education, Prescription Opioid Use. Follow up: Private Physician; When: 1 - 2 days; Reason: Continuance of care. raimundo
--- NOTE | 2017-08-09 14:06 | ER ---
Nurse's Notes [facility] Name: Charito Michael Age: 52 yrs Sex: Female : 1965 Arrival Date: 08/09/2017 Time: 12:26 Bed 15 Private MD: Unknown, Unknown Diagnosis: PNEUMONITIS Presentation: 08/09 12:31 Presenting complaint: Patient states: cough since last night as well as mosquito bites ss to bilateral arms and legs. Pt also c/o chronic back pain. Transition of care: patient was not received from another setting of care. Onset of symptoms was August 08, 2017. Risk Assessment: Do you want to hurt yourself or someone else? Patient reports no desire to harm self or others. Initial Sepsis Screen: Does the patient meet any 2 criteria? No. Patient's initial sepsis screen is negative. Does the patient have a suspected source of infection? No. Patient's initial sepsis screen is negative. Care prior to arrival: None. 12:31 Method Of Arrival: Ambulatory ss 12:31 Acuity: GIULIANO 5 ss Triage Assessment: 13:15 General: Appears in no apparent distress. comfortable, well groomed, well developed, kr2 well nourished, Behavior is calm, cooperative. Historical: - Allergies: 12:32 NKA; ss - PMHx: 12:32 CHF; COPD; HIV; Hypertension; seasonal allergies; ss - PSHx: 12:32 None; ss - Immunization history:: Adult Immunizations up to date. - Social history:: Smoking status: Patient/guardian denies using tobacco. - Ebola Screening: : Patient denies exposure to infectious person Patient denies travel to an Ebola-affected area in the 21 days before illness onset. Screenin:15 Abuse screen: Denies threats or abuse. Denies injuries from another. Nutritional kr2 screening: No deficits noted. Tuberculosis screening: No symptoms or risk factors identified. Fall Risk None identified. Assessment: 13:15 General: Appears in no apparent distress. comfortable, well groomed, well developed, kr2 well nourished, Behavior is calm, cooperative, appropriate for age. Pain: Complains of pain in back Pain currently is 8 out of 10 on a pain scale. Quality of pain is described as aching, Is continuous, Alleviated by rest, Aggravated by increased activity. Neuro: Level of Consciousness is awake, alert, obeys commands, Oriented to person, place, time, situation, Appropriate for age Intact. Cardiovascular: Capillary refill < 3 seconds in bilateral fingers Patient's skin is warm and dry. Respiratory: Reports cough that is non-productive, Airway is patent Respiratory effort is even, unlabored, Respiratory pattern is regular, symmetrical. GI: Abdomen is flat, non-distended. : No signs and/or symptoms were reported regarding the genitourinary system. EENT: Oral mucosa is moist. Derm: Skin is intact, is healthy with good turgor, Skin is pink, warm \T\ dry. Musculoskeletal: Circulation, motion, and sensation intact. 14:30 Reassessment: Patient appears in no apparent distress at this time. Patient and/or kr2 family updated on plan of care and expected duration. Pain level reassessed. Patient is alert, oriented x 3, equal unlabored respirations, skin warm/dry/pink. Patient states feeling better. Vital Signs: 12:32 BP 160 / 91; Pulse 95; Resp 16; Temp 97.7(O); Pulse Ox 100% on R/A; Weight 56.7 kg; ss Height 5 ft. 3 in. (160.02 cm); Pain 8/10; 14:03 BP 149 / 95; Pulse 84; Resp 15; Pulse Ox 100% on R/A; mh5 12:32 Body Mass Index 22.14 (56.70 kg, 160.02 cm) ED Course: 12:26 Patient arrived in ED. sb2 12:26 Unknown, Unknown is Private Physician. sb2 12:32 Triage completed. 12:32 Arm band placed on right wrist. 12:35 Arie Hidalgo PA is PHCP. [facility] 12:35 Ac Nixon MD is Attending Physician. [facility] 13:00 Patient has correct armband on for positive identification. Placed in gown. Bed in low mh5 position. Call light in reach. Side rails up X 1. Warm blanket given. Pulse ox on. NIBP on. 13:00 Initial lab(s) drawn, by me, sent to lab. Inserted saline lock: 22 gauge in right mh5 forearm, using aseptic technique. Blood collected. 13:01 BMP Sent. 5 13:01 CBC with Diff Sent. [facility] 13:08 Chest Pa And Lat (2 Views) XRAY In Process Unspecified. EDMS 14:30 No provider procedures requiring assistance completed. IV discontinued, intact, kr2 bleeding controlled, No redness/swelling at site. Pressure dressing applied. 14:40 Tracy Escamilla, RN is Primary Nurse. kr2 Administered Medications: No medications were administered Outcome: 14:05 Discharge ordered by . raimundo 14:30 Discharged to home ambulatory. kr2 14:30 Condition: good 14:30 Discharge instructions given to patient, Instructed on discharge instructions, follow up and referral plans. medication usage, Demonstrated understanding of instructions, follow-up care, medications, Prescriptions given X 2. 14:41 Patient left the ED. kr2 Signatures: Dispatcher [employer] EDUT Arie Hidalgo PA PA jmm Smirch, Shelby, RN RN Samira Christian [facility] Tracy Escamilla, RN RN kr2 Alice Young sb2
[2017-08-09 14:19] LABS: Blood Morphology Comment NOT SEEN (NOT SEEN); Platelet Estimate ADEQ; Urine White Blood Cell Casts OK
[2017-08-09 14:44] VITALS: TEMP 97.7; O2SAT 100
[2017-08-09 14:46] VITALS: BP 149/95
== END 2017-08-09 14:41 | disposition home or self-care (01) ==
LOC: ER 12:23
DX: J18.9 Pneumonia, unspecified organism (principal); J44.9 Chronic obstructive pulmonary disease, unspecified; I11.0 Hypertensive heart disease with heart failure; I50.9 Heart failure, unspecified; Z21 Asymptomatic human immunodeficiency virus [HIV] infection status
CPT/HCPCS: 36415; 71046; 80048; 85025; 99284

== ENCOUNTER 2017-08-26 11:44 | Emergency (ER) | payer OTHER ==
--- NOTE | 2017-08-26 12:26 | EDPHYS ---
Physician Documentation [facility] Name: Charito Michael Age: 52 yrs Sex: Female : 1965 Arrival Date: 08/26/2017 Time: 11:46 Bed 19 Private MD: ED Physician Jaylan King HPI: 08/26 14:06 This 52 yrs old Black Female presents to ER via Ambulatory with complaints of Back Pain.gs 14:06 The patient presents with pain that is chronic. The symptoms are located in the low gs back. Onset: The symptoms/episode began/occurred 2 week(s) ago, and became persistent. The pain does not radiate. Associated signs and symptoms: Pertinent negatives: incontinence, numbness, urinary retention. Modifying factors: the patient symptoms are aggravated by bending. Severity of symptoms: At their worst the symptoms were moderate, in the emergency department the symptoms are unchanged. The patient has experienced similar episodes in the past, several times, old injury. 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 - Social history:: Smoking status: Patient/guardian denies using tobacco. - Ebola Screening: : No symptoms or risks identified at this time. ROS: 14:06 All other systems are negative. gs Exam: 14:06 Head/Face: Normocephalic, atraumatic. ENT: Nares patent. No nasal discharge, no gs septal abnormalities noted. Tympanic membranes are normal and external auditory canals are clear. Oropharynx with no redness, swelling, or masses, exudates, or evidence of obstruction, uvula midline. Mucous membranes moist. Cardiovascular: Regular rate and rhythm with a normal S1 and S2. No gallops, murmurs, or rubs. Normal PMI, no JVD. No pulse deficits. Respiratory: Lungs have equal breath sounds bilaterally, clear to auscultation and percussion. No rales, rhonchi or wheezes noted. No increased work of breathing, no retractions or nasal flaring. Abdomen/GI: Soft, non-tender, with normal bowel sounds. No distension or tympany. No guarding or rebound. No evidence of tenderness throughout. Back: No spinal tenderness. No costovertebral tenderness. Full range of motion. Skin: Warm, dry with normal turgor. Normal color with no rashes, no lesions, and no evidence of cellulitis. MS/ Extremity: Pulses equal, no cyanosis. Neurovascular intact. Full, normal range of motion. Neuro: Awake and alert, GCS 15, oriented to person, place, time, and situation. Cranial nerves II-XII grossly intact. Motor strength 5/5 in all extremities. Sensory grossly intact. Cerebellar exam normal. Normal gait. 14:06 Constitutional: The patient appears alert, awake. Vital Signs: 12:11 BP 138 / 80; Pulse 95; Resp 18 S; Temp 98.9(TE); Pulse Ox 100% on R/A; Weight 68.04 kg aa5 (R); Height 5 ft. 3 in. (160.02 cm) (R); Pain 7/10; 12:11 Body Mass Index 26.57 (68.04 kg, 160.02 cm) aa5 MDM: 12:24 Patient medically screened. 14:06 Differential diagnosis: chronic back pain, Ligament Injury ruptured disc, sprain. Data reviewed: vital signs, nurses notes. Response to treatment: the patient's symptoms have mildly improved after treatment, and as a result, I will discharge patient. Administered Medications: No medications were administered Disposition: 08/26/17 12:25 Discharged to Home. Impression: Low back pain, Chronic pain syndrome. - Condition is Stable. - Discharge Instructions: Back Pain, Adult. - Prescriptions for Naprosyn 500 mg Oral Tablet - take 1 tablet by ORAL route 2 times per day take with food; 20 tablet. - Medication Reconciliation Form, Thank You Letter, Antibiotic Education, Prescription Opioid Use form. - Follow up: Private Physician; When: 2 - 3 days; Reason: Re-evaluation by your physician. Signatures: Lynne Rowland RN RN aa5 Xiang Paz RN RN jl7 Jaylan King MD MD Corrections: (The following items were deleted from the chart) 12:12 12:11 PSHx: None; aa5 aa5 12:36 12:25 08/26/2017 12:25 Discharged to Home. Impression: Low back pain; Chronic pain jl7 syndrome. Condition is Stable. Forms are Medication Reconciliation Form, Thank You Letter, Antibiotic Education, Prescription Opioid Use. Follow up: Private Physician; When: 2 - 3 days; Reason: Re-evaluation by your physician. gs
--- NOTE | 2017-08-26 12:26 | ER ---
Nurse's Notes [facility] Name: Charito Michael Age: 52 yrs Sex: Female : 1965 Arrival Date: 08/26/2017 Time: 11:46 Bed 19 Private MD: Diagnosis: Low back pain;Chronic pain syndrome Presentation: 08/26 12:10 Presenting complaint: Patient states: chronic back pain. Pt also reports itching to ramya aa5 arms x 2-3 days ago. Transition of care: patient was not received from another setting of care. Onset of symptoms was August 2017. Risk Assessment: Do you want to hurt yourself or someone else? Patient reports no desire to harm self or others. Initial Sepsis Screen: Does the patient meet any 2 criteria? No. Patient's initial sepsis screen is negative. Does the patient have a suspected source of infection? No. Patient's initial sepsis screen is negative. Care prior to arrival: None. 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 - Social history:: Smoking status: Patient/guardian denies using tobacco. - Ebola Screening: : No symptoms or risks identified at this time. Screenin:20 Abuse screen: Denies threats or abuse. Denies injuries from another. Nutritional jl7 screening: No deficits noted. Tuberculosis screening: No symptoms or risk factors identified. Fall Risk None identified. Assessment: 12:20 General: Appears in no apparent distress. uncomfortable, Behavior is calm, cooperative. jl7 Pain: Complains of pain in back Pain currently is 7 out of 10 on a pain scale. Pain began years ago. Neuro: Level of Consciousness is awake, alert, obeys commands, Oriented to person, place, time, situation. Cardiovascular: Patient's skin is warm and dry. Respiratory: Airway is patent Respiratory effort is even, unlabored, Respiratory pattern is regular, symmetrical. Derm: Skin is dry, Skin is normal, Skin temperature is warm. Vital Signs: 12:11 BP 138 / 80; Pulse 95; Resp 18 S; Temp 98.9(TE); Pulse Ox 100% on R/A; Weight 68.04 kg aa5 (R); Height 5 ft. 3 in. (160.02 cm) (R); Pain 7/10; 12:11 Body Mass Index 26.57 (68.04 kg, 160.02 cm) aa5 ED Course: 11:46 Patient arrived in ED. mr 12:10 Arm band placed on. aa5 12:11 Triage completed. aa5 12:19 Jaylan King MD is Attending Physician. gs 12:20 Patient has correct armband on for positive identification. Bed in low position. Call jl7 light in reach. Side rails up X 1. Pulse ox on. NIBP on. 12:33 Xiang Paz RN is Primary Nurse. jl7 12:36 No provider procedures requiring assistance completed. Patient did not have IV access jl7 during this emergency room visit. Administered Medications: No medications were administered Outcome: 12:25 Discharge ordered by . gs 12:36 Discharged to home ambulatory. jl7 12:36 Condition: stable 12:36 Discharge instructions given to patient, Instructed on discharge instructions, follow up and referral plans. medication usage, Demonstrated understanding of instructions, follow-up care, medications, Prescriptions given X 1. 12:36 Patient left the ED. jl7 Signatures: Samira Rogers KashifLynne, RN RN aa5 Xiang Paz, HALLE NERI jl7 Jaylan King MD MD Corrections: (The following items were deleted from the chart) 12:12 12:11 PSHx: None; aa5 aa5
[2017-08-26 12:41] VITALS: BP 138/80; TEMP 98.9; O2SAT 100
== END 2017-08-26 12:36 | disposition home or self-care (01) ==
LOC: ER 11:44
DX: M54.5 Low back pain (principal); G89.4 Chronic pain syndrome; I11.0 Hypertensive heart disease with heart failure; I50.9 Heart failure, unspecified; J44.9 Chronic obstructive pulmonary disease, unspecified; Z21 Asymptomatic human immunodeficiency virus [HIV] infection status
CPT/HCPCS: 99283

== ENCOUNTER 2017-10-08 12:44 | Emergency (ER) | payer OTHER ==
--- NOTE | 2017-10-08 15:12 | ER ---
Nurse's Notes [facility] Name: Charito Michael Age: 52 yrs Sex: Female : 1965 Arrival Date: 10/08/2017 Time: 12:46 Bed 10 Private MD: Andrea Alvares Diagnosis: Sore Throat Presentation: 10/08 13:06 Presenting complaint: Patient states: pain to back, chest, neck, bad teeth, body aches ch in my joints and hips. I woke up sore around 0400. Transition of care: patient was not received from another setting of care. Onset of symptoms was October 08, 2017 at 04:00. Risk Assessment: Do you want to hurt yourself or someone else? Patient reports no desire to harm self or others. Initial Sepsis Screen: Does the patient meet any 2 criteria? No. Patient's initial sepsis screen is negative. Does the patient have a suspected source of infection? No. Patient's initial sepsis screen is negative. Care prior to arrival: None. 13:06 Method Of Arrival: Ambulatory 13:06 Acuity: GIULINAO 4 ch Triage Assessment: 13:08 General: Appears in no apparent distress. comfortable, Behavior is calm, cooperative, ch appropriate for age. Pain: Complains of pain in neck, back of neck, face, back and chest Pain currently is 6 out of 10 on a pain scale. Musculoskeletal: Circulation, motion, and sensation intact. 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 - Social history:: Smoking status: Patient/guardian denies using tobacco, Patient/guardian denies using alcohol, street drugs. - Ebola Screening: : Patient negative for fever greater than or equal to 101.5 degrees Fahrenheit, and additional compatible Ebola Virus Disease symptoms Patient denies exposure to infectious person Patient denies travel to an Ebola-affected area in the 21 days before illness onset No symptoms or risks identified at this time. Screenin:24 Abuse screen: Denies threats or abuse. Denies injuries from another. Nutritional ch screening: No deficits noted. Tuberculosis screening: No symptoms or risk factors identified. Fall Risk None identified. Assessment: 14:24 Reassessment: Patient appears in no apparent distress at this time. Patient and/or ch family updated on plan of care and expected duration. Pain level reassessed. Patient is alert, oriented x 3, equal unlabored respirations, skin warm/dry/pink. General: Appears in no apparent distress. uncomfortable, Behavior is calm, cooperative, appropriate for age. Pain: Complains of pain in chest and back and face and back of neck and neck. Neuro: Level of Consciousness is awake, alert, obeys commands, Oriented to person, place, time, situation, Organizational Effectiveness Consultant are equal bilaterally Moves all extremities. Full function Gait is steady, Speech is normal, is slurred, Facial symmetry appears normal, Facial symmetry: tongue is midline, Pupils are PERRLA, Reports headache. Cardiovascular: Heart tones S1 S2 present. Respiratory: Airway is patent Respiratory effort is even, unlabored, Breath sounds are clear bilaterally. GI: No signs and/or symptoms were reported involving the gastrointestinal system. Derm: No signs and/or symptoms reported regarding the dermatologic system. Skin is dry, Skin is black. Vital Signs: 13:08 BP 174 / 98; Pulse 83; Resp 15; Temp 97.2; Pulse Ox 100% on R/A; Weight 81.65 kg; ch Height 5 ft. 3 in. (160.02 cm); Pain 8/10; 14:24 BP 158 / 82; Pulse 71; Resp 16; Temp 98.3; Pulse Ox 99% on R/A; Pain 8/10; ch 13:08 Body Mass Index 31.89 (81.65 kg, 160.02 cm) ED Course: 12:46 Patient arrived in ED. mr 12:46 Andrea Alvares MD is Private Physician. mr 13:06 Triage completed. ch 13:08 Arm band placed on left wrist. Patient placed in waiting room. EKG completed in triage. Results shown to MD. 13:23 EKG done, by fire technology instructor. reviewed by Alexys Yarbrough MD. at1 14:05 Kelly Deleon, HALLE is Primary Nurse. iw 14:11 Alexys Yarbrough MD is Attending Physician. kdr 14:24 Patient has correct armband on for positive identification. Bed in low position. Call light in reach. 15:11 Andrea Alvares MD is Referral Physician. kdr 15:18 No provider procedures requiring assistance completed. Patient did not have IV access aj during this emergency room visit. Administered Medications: No medications were administered Outcome: 15:12 Discharge ordered by . kdr 15:18 Discharged to home ambulatory. aj 15:18 Condition: good 15:18 Discharge instructions given to patient, Instructed on discharge instructions, follow up and referral plans. medication usage, Demonstrated understanding of instructions, follow-up care, medications, Prescriptions given X 2. 15:19 Patient left the ED. aj Signatures: Aleksandra Gong RN RN ch Myers, Amanda, RN RN aj Rittger, Kevin, MD MD kdr Rivera, Maria mr Williams, Irene, RN Chichi Agustin, soldering machine feeder EKG Tat1
--- NOTE | 2017-10-08 15:12 | EDPHYS ---
Physician Documentation [facility] Name: Charito Michael Age: 52 yrs Sex: Female : 1965 Arrival Date: 10/08/2017 Time: 12:46 Bed 10 Private MD: Andrea Alvares ED Physician Alexys Yarbrough HPI: 10/08 15:10 This 52 yrs old Black Female presents to ER via Ambulatory with complaints of Back kdr Pain, Chest Pain, Leg Pain. 15:13 Sore throat for a few days. She has been seen here before for similar c/o. The patient kdr has no apparent life or limb threatening illness of c/o. Onset: The symptoms/episode began/occurred gradually, 3 day(s) ago. Severity of symptoms: At their worst the symptoms were very mild in the emergency department the symptoms are unchanged. The patient has experienced similar episodes in the past, several times. The patient has not recently seen a physician. 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 - Social history:: Smoking status: Patient/guardian denies using tobacco, Patient/guardian denies using alcohol, street drugs. - Ebola Screening: : Patient negative for fever greater than or equal to 101.5 degrees Fahrenheit, and additional compatible Ebola Virus Disease symptoms Patient denies exposure to infectious person Patient denies travel to an Ebola-affected area in the 21 days before illness onset No symptoms or risks identified at this time. ROS: 15:13 Constitutional: Negative for fever, chills, and weight loss, Eyes: Negative for injury, kdr pain, redness, and discharge, Neck: Negative for injury, pain, and swelling, Cardiovascular: Negative for chest pain, palpitations, and edema, Respiratory: Negative for shortness of breath, cough, wheezing, and pleuritic chest pain, Abdomen/GI: Negative for abdominal pain, nausea, vomiting, diarrhea, and constipation, Back: Negative for injury and pain, : Negative for injury, bleeding, discharge, and swelling, MS/Extremity: Negative for injury and deformity, Skin: Negative for injury, rash, and discoloration, Neuro: Negative for headache, weakness, numbness, tingling, and seizure activity. 15:13 ENT: Positive for sore throat, Negative for injury or acute deformity, drainage from ear(s), ear pain, foreign body sensation, Gum pain hearing loss, pulling at ears. Exam: 15:16 Constitutional: This is a well developed, well nourished patient who is awake, alert, kdr and in no acute distress. Head/Face: Normocephalic, atraumatic. Eyes: Pupils equal round and reactive to light, extra-ocular motions intact. Lids and lashes normal. Conjunctiva and sclera are non-icteric and not injected. Cornea within normal limits. Periorbital areas with no swelling, redness, or edema. Neck: Trachea midline, no thyromegaly or masses palpated, and no cervical lymphadenopathy. Supple, full range of motion without nuchal rigidity, or vertebral point tenderness. No Meningismus. Chest/axilla: Normal chest wall appearance and motion. Nontender with no deformity. No lesions are appreciated. Cardiovascular: Regular rate and rhythm with a normal S1 and S2. No gallops, murmurs, or rubs. Normal PMI, no JVD. No pulse deficits. Respiratory: Lungs have equal breath sounds bilaterally, clear to auscultation and percussion. No rales, rhonchi or wheezes noted. No increased work of breathing, no retractions or nasal flaring. Abdomen/GI: Soft, non-tender, with normal bowel sounds. No distension or tympany. No guarding or rebound. No evidence of tenderness throughout. Back: No spinal tenderness. No costovertebral tenderness. Full range of motion. Skin: Warm, dry with normal turgor. Normal color with no rashes, no lesions, and no evidence of cellulitis. MS/ Extremity: Pulses equal, no cyanosis. Neurovascular intact. Full, normal range of motion. Neuro: Awake and alert, GCS 15, oriented to person, place, time, and situation. Cranial nerves II-XII grossly intact. Motor strength 5/5 in all extremities. Sensory grossly intact. Cerebellar exam normal. Normal gait. Psych: Awake, alert, with orientation to person, place and time. Behavior, mood, and affect are within normal limits. 15:16 ENT: External ear(s): Ear canal(s): TM's: Nose: Mouth: Posterior pharynx: Voice: Vital Signs: 13:08 BP 174 / 98; Pulse 83; Resp 15; Temp 97.2; Pulse Ox 100% on R/A; Weight 81.65 kg; ch Height 5 ft. 3 in. (160.02 cm); Pain 8/10; 14:24 BP 158 / 82; Pulse 71; Resp 16; Temp 98.3; Pulse Ox 99% on R/A; Pain 8/10; ch 13:08 Body Mass Index 31.89 (81.65 kg, 160.02 cm) ch MDM: 15:12 Patient medically screened. kdr 15:16 Data reviewed: vital signs, nurses notes. Counseling: I had a detailed discussion with kdr the patient and/or guardian regarding: the historical points, exam findings, and any diagnostic results supporting the discharge/admit diagnosis, the need for outpatient follow up. Administered Medications: No medications were administered Disposition: 10/08/17 15:12 Discharged to Home. Impression: Sore Throat. - Condition is Stable. - Discharge Instructions: Sore Throat, [id number]. - Prescriptions for Tessalon Perles 100 mg Oral Capsule - take 1 capsule by ORAL route every 8 hours As needed; 15 capsule. Tramadol 50 mg Oral Tablet - take 1 tablet by ORAL route every 8 hours as needed; 4 tablet. - Medication Reconciliation Form, Thank You Letter form. - Follow up: Andrea Alvares MD; When: 2 - 3 days; Reason: If symptoms return, Further diagnostic work-up, Recheck today's complaints, Continuance of care, Re-evaluation by your physician. - Problem is an ongoing problem. - Symptoms are unchanged. Signatures: Aleksandra Gong RN RN ch Myers, Amanda, RN RN aj Rittger, Kevin, MD MD kdr Corrections: (The following items were deleted from the chart) 15:19 15:12 10/08/2017 15:12 Discharged to Home. Impression: Sore Throat. Condition is aj Stable. Forms are Medication Reconciliation Form, Thank You Letter, Antibiotic Education, Prescription Opioid Use. Follow up: Andrea Alvares; When: 2 - 3 days; Reason: If symptoms return, Further diagnostic work-up, Recheck today's complaints, Continuance of care, Re-evaluation by your physician. Problem is an ongoing problem. Symptoms are unchanged. kdr
[2017-10-08 15:31] VITALS: BP 158/82; TEMP 98.3; O2SAT 99
--- NOTE | 2017-10-09 16:21 | EKG ---
Test Date: 2017-10-08 Test Time: 13:05:04 Media Production Manager: BERNY MEASUREMENT RESULTS: Intervals: Rate: 82 VT: 150 QRSD: 88 QT: 378 QTc: 441 [place]: P: 59 VT: 150 QRS: 33 T: 119 INTERPRETIVE STATEMENTS: Normal sinus rhythm Possible Left atrial enlargement Left ventricular hypertrophy with repolarization abnormality Abnormal ECG Compared to ECG 01/17/2016 14:18:50 Early repolarization now present Electronically Signed On 10-09-17 16:15:05 CDT by Nick Duggan
== END 2017-10-08 15:19 | disposition home or self-care (01) ==
LOC: ER 12:44
DX: J02.9 Acute pharyngitis, unspecified (principal); I10 Essential (primary) hypertension; Z21 Asymptomatic human immunodeficiency virus [HIV] infection status
CPT/HCPCS: 93005; 99283

== ENCOUNTER 2017-10-30 14:03 | Emergency (ER) | payer OTHER ==
[2011-08-27 15:02] VITALS: BP 137/85
--- NOTE | 2017-10-30 14:27 | EDPHYS ---
Physician Documentation [facility] Name: Charito Michael Age: 52 yrs Sex: Female : 1965 Arrival Date: 10/30/2017 Time: 14:04 Bed 11 Private MD: ED Physician Ac Nixon HPI: 10/30 14:19 This 52 yrs old Black Female presents to ER via Ambulatory with complaints of Nausea . jr8 14:19 The patient presents to the emergency department with nausea. Onset: The jr8 symptoms/episode began/occurred acutely, today. Possible causes: bad food exposure, chocolate milk. The symptoms are aggravated by nothing. The symptoms are alleviated by nothing. Associated signs and symptoms: The patient has no apparent associated signs or symptoms. Severity of symptoms: At their worst the symptoms were mild in the emergency department the symptoms are unchanged. The patient has not experienced similar symptoms in the past. The patient has not recently seen a physician. [employer]: 14:16 LMP N/A - iw Historical: - Allergies: 14:16 NKA; iw - PMHx: 14:16 CHF; COPD; HIV; Hypertension; seasonal allergies; iw - Immunization history:: Adult Immunizations unknown. - Ebola Screening: : Patient negative for fever greater than or equal to 101.5 degrees Fahrenheit, and additional compatible Ebola Virus Disease symptoms Patient denies exposure to infectious person Patient denies travel to an Ebola-affected area in the 21 days before illness onset No symptoms or risks identified at this time. - Social history:: Smoking status: . ROS: 14:19 Eyes: Negative for injury, pain, redness, and discharge, ENT: Negative for injury, jr8 pain, and discharge, Neck: Negative for injury, pain, and swelling, Cardiovascular: Negative for chest pain, palpitations, and edema, Respiratory: Negative for shortness of breath, cough, wheezing, and pleuritic chest pain, Back: Negative for injury and pain, MS/Extremity: Negative for injury and deformity, Skin: Negative for injury, rash, and discoloration, Neuro: Negative for headache, weakness, numbness, tingling, and seizure. 14:19 Abdomen/GI: Positive for nausea, Negative for abdominal pain, vomiting, diarrhea, constipation, abdominal cramps, abdominal distension, anorexia, dysphagia, hematemesis, black/tarry stool, rectal pain, rectal bleeding, bowel incontinence, flatulence. Exam: 14:19 Eyes: Pupils equal round and reactive to light, extra-ocular motions intact. Lids and jr8 lashes normal. Conjunctiva and sclera are non-icteric and not injected. Cornea within normal limits. Periorbital areas with no swelling, redness, or edema. ENT: Nares patent. No nasal discharge, no septal abnormalities noted. Tympanic membranes are normal and external auditory canals are clear. Oropharynx with mild redness and white plaquing. No swelling, or masses, exudates, or evidence of obstruction, uvula midline. Mucous membranes moist. Neck: Trachea midline, no thyromegaly or masses palpated, and no cervical lymphadenopathy. Supple, full range of motion without nuchal rigidity, or vertebral point tenderness. No Meningismus. Cardiovascular: Regular rate and rhythm with a normal S1 and S2. No gallops, murmurs, or rubs. Normal PMI, no JVD. No pulse deficits. Respiratory: Lungs have equal breath sounds bilaterally, clear to auscultation and percussion. No rales, rhonchi or wheezes noted. No increased work of breathing, no retractions or nasal flaring. Abdomen/GI: Soft, non-tender, with normal bowel sounds. No distension or tympany. No guarding or rebound. No evidence of tenderness throughout. Back: No spinal tenderness. No costovertebral tenderness. Full range of motion. Skin: Warm, dry with normal turgor. Normal color with no rashes, no lesions, and no evidence of cellulitis. MS/ Extremity: Pulses equal, no cyanosis. Neurovascular intact. Full, normal range of motion. Neuro: Awake and alert, GCS 15, oriented to person, place, time, and situation. Cranial nerves II-XII grossly intact. Motor strength 5/5 in all extremities. Sensory grossly intact. Cerebellar exam normal. Normal gait. Vital Signs: 14:16 BP 152 / 98; Pulse 89; Resp 16; Pulse Ox 98% on R/A; Weight 68.04 kg; Height 5 ft. 3 iw in. (160.02 cm); Pain 5/10; 14:16 Body Mass Index 26.57 (68.04 kg, 160.02 cm) iw MDM: 14:19 Patient medically screened. [facility] 14:19 Data reviewed: vital signs, nurses notes, and as a result, I will discharge patient. jr8 Data interpreted: Pulse oximetry: on room air is 98 %. Interpretation: normal. Counseling: I had a detailed discussion with the patient and/or guardian regarding: the historical points, exam findings, and any diagnostic results supporting the discharge/admit diagnosis, the need for outpatient follow up, a family practitioner, to return to the emergency department if symptoms worsen or persist or if there are any questions or concerns that arise at home. Administered Medications: No medications were administered Disposition: 15:15 Co-signature as Attending Physician, cA Nixon MD. rn Disposition: 10/30/17 14:23 Discharged to Home. Impression: Candidal stomatitis, Nausea. - Condition is Stable. - Discharge Instructions: Nausea, Adult, Thrush, Adult. - Prescriptions for Nystatin 100,000 unit/mL Oral Suspension - take 5 milliliter by ORAL route every 6 hours; 120 milliliter. Zofran 4 mg Oral Tablet - take 1 tablet by ORAL route every 12 hours As needed; 20 tablet. - Medication Reconciliation Form, Thank You Letter, Antibiotic Education, Prescription Opioid Use form. - Follow up: Private Physician; When: 2 - 3 days; Reason: Recheck today's complaints, Continuance of care, Re-evaluation by your physician. - Problem is new. - Symptoms have improved. Signatures: Kelly Deleon RN RN iw Nieto, Roman, MD MD rn Roszak, Josh, PA PA jr8 Corrections: (The following items were deleted from the chart) 14:30 14:23 10/30/2017 14:23 Discharged to Home. Impression: Candidal stomatitis; Nausea. iw Condition is Stable. Forms are Medication Reconciliation Form, Thank You Letter, Antibiotic Education, Prescription Opioid Use. Follow up: Private Physician; When: 2 - 3 days; Reason: Recheck today's complaints, Continuance of care, Re-evaluation by your physician. Problem is new. Symptoms have improved. jr8
--- NOTE | 2017-10-30 14:27 | ER ---
Nurse's Notes [facility] Name: Charito Michael Age: 52 yrs Sex: Female : 1965 Arrival Date: 10/30/2017 Time: 14:04 Bed 11 Private MD: Diagnosis: Candidal stomatitis;Nausea Presentation: 10/30 14:14 Presenting complaint: Patient states: drank some chocolate milk this morning and now iw her stomach is hurting, c/o upper abd pain 5/10, no vomiting or diarrhea, also has back pain X 2 days and sinus congestion. Transition of care: patient was not received from another setting of care. Onset of symptoms was October 30, 2017. Risk Assessment: Do you want to hurt yourself or someone else? Patient reports no desire to harm self or others. Initial Sepsis Screen: Does the patient meet any 2 criteria? No. Patient's initial sepsis screen is negative. Does the patient have a suspected source of infection? No. Patient's initial sepsis screen is negative. Care prior to arrival: None. 14:14 Method Of Arrival: Ambulatory iw 14:14 Acuity: GIULIANO 4 iw TEXT TRANSCRIBER: 14:16 LMP N/A - iw Historical: - Allergies: 14:16 NKA; iw - PMHx: 14:16 CHF; COPD; HIV; Hypertension; seasonal allergies; iw - Immunization history:: Adult Immunizations unknown. - Ebola Screening: : Patient negative for fever greater than or equal to 101.5 degrees Fahrenheit, and additional compatible Ebola Virus Disease symptoms Patient denies exposure to infectious person Patient denies travel to an Ebola-affected area in the 21 days before illness onset No symptoms or risks identified at this time. - Social history:: Smoking status: . Screenin:29 Abuse screen: Denies threats or abuse. Denies injuries from another. Nutritional iw screening: No deficits noted. Tuberculosis screening: No symptoms or risk factors identified. Fall Risk None identified. Assessment: 14:28 General: Appears in no apparent distress. Behavior is calm, cooperative. Pain: iw Complains of pain in abdomen. Neuro: Level of Consciousness is awake, alert, obeys commands, Oriented to person, place, time, situation. Cardiovascular: Patient's skin is warm and dry. Respiratory: Respiratory effort is even, unlabored. GI: Bowel sounds present X 4 quads. Abd is soft and non tender X 4 quads. Reports upper abdominal pain, nausea. Derm: Skin is intact, is healthy with good turgor. Musculoskeletal: Range of motion: intact in all extremities. Vital Signs: 14:16 BP 152 / 98; Pulse 89; Resp 16; Pulse Ox 98% on R/A; Weight 68.04 kg; Height 5 ft. 3 iw in. (160.02 cm); Pain 5/10; 14:16 Body Mass Index 26.57 (68.04 kg, 160.02 cm) iw ED Course: 14:04 Patient arrived in ED. mr 14:14 Kelly Deleon, RN is Primary Nurse. iw 14:15 Triage completed. iw 14:16 Arm band placed on. iw 14:19 Dimitri Sanchez PA is PHCP. jr8 14:19 Ac Nixon MD is Attending Physician. jr8 14:29 Patient has correct armband on for positive identification. iw 14:29 No provider procedures requiring assistance completed. Patient did not have IV access iw during this emergency room visit. Administered Medications: No medications were administered Outcome: 14:23 Discharge ordered by . jr8 14:29 Discharged to home ambulatory. iw 14:29 Condition: good 14:29 Discharge instructions given to patient, Instructed on discharge instructions, follow up and referral plans. medication usage, Demonstrated understanding of instructions, follow-up care, medications, Prescriptions given X 2. 14:30 Patient left the ED. iw Signatures: Samira Rogers Kelly Deleon, RN RN iw Dimitri Sanchez PA PA jr8
== END 2017-10-30 14:30 | disposition home or self-care (01) ==
LOC: ER 14:03
DX: B37.0 Candidal stomatitis (principal)
CPT/HCPCS: 99281

== ENCOUNTER 2017-11-25 11:39 | Emergency (ER) | payer OTHER ==
--- NOTE | 2017-11-25 13:19 | EDPHYS ---
Physician Documentation [facility] Name: Charito Michael Age: 52 yrs Sex: Female : 1965 Arrival Date: 11/25/2017 Time: 11:41 Bed 23 Private MD: ED Physician Cyndee Ballard HPI: 11/25 12:18 This 52 yrs old Black Female presents to ER via Ambulatory with complaints of Back ma2 Pain, Swollen Glands. 12:18 The patient presents with pain that is chronic. The symptoms are located in the right ma2 mid back. Associated signs and symptoms: Pertinent negatives: abdominal pain, constipation, fever, incontinence, tingling, vomiting. Severity of symptoms: At their worst the symptoms were moderate, in the emergency department the symptoms are unchanged. The patient has experienced similar episodes in the past. here for sore throat for 2 days mild constant and state she has right lower back pain for months . Historical: - Allergies: 11:48 NKA; sv - PMHx: 11:48 CHF; COPD; HIV; Hypertension; seasonal allergies; sv - Immunization history:: Flu vaccine is not up to date. - Social history:: Smoking status: Patient/guardian denies using tobacco, Patient/guardian denies using alcohol, street drugs, The patient lives with family. - Ebola Screening: : No symptoms or risks identified at this time. - Family history:: not pertinent. ROS: 12:18 Constitutional: Negative for fever, chills, and weight loss, Neck: Negative for injury, ma2 pain, and swelling, Cardiovascular: Negative for chest pain, palpitations, and edema, Abdomen/GI: Negative for abdominal pain, nausea, diarrhea, and constipation, Neuro: Negative for headache, weakness, numbness, tingling, and seizure, Psych: Negative for depression, anxiety, suicide ideation, homicidal ideation, and hallucinations. 12:18 ENT: Positive for sore throat, Negative for injury or acute deformity, drainage from ear(s), Gum pain hearing loss, pulling at ears, tinnitus, rhinorrhea, hoarseness. 12:18 All other systems are negative. Exam: 12:18 Constitutional: This is a well developed, well nourished patient who is awake, alert, ma2 and in no acute distress. Chest/axilla: Normal chest wall appearance and motion. Nontender with no deformity. No lesions are appreciated. Cardiovascular: Regular rate and rhythm with a normal S1 and S2. No gallops, murmurs, or rubs. Normal PMI, no JVD. No pulse deficits. Respiratory: Lungs have equal breath sounds bilaterally, clear to auscultation and percussion. No rales, rhonchi or wheezes noted. No increased work of breathing, no retractions or nasal flaring. Abdomen/GI: Soft, non-tender, with normal bowel sounds. No distension or tympany. No guarding or rebound. No evidence of tenderness throughout. Back: No spinal tenderness. No costovertebral tenderness. Full range of motion. MS/ Extremity: Pulses equal, no cyanosis. Neurovascular intact. Full, normal range of motion. Neuro: Awake and alert, GCS 15, oriented to person, place, time, and situation. Cranial nerves II-XII grossly intact. Motor strength 5/5 in all extremities. Sensory grossly intact. Cerebellar exam normal. Normal gait. 12:18 ENT: TM's: are normal, Nose: is normal, Posterior pharynx: Tonsils: are normal in appearance, swelling, is not appreciated, erythema, Voice: is normal. Vital Signs: 11:48 BP 134 / 83; Pulse 80; Resp 18; Temp 96.7; Pulse Ox 100% ; Weight 68.04 kg; Height 5 sv ft. 3 in. (160.02 cm); Pain 10/10; 11:48 Body Mass Index 26.57 (68.04 kg, 160.02 cm) sv MDM: 11:50 Patient medically screened. [facility] 12:18 Differential diagnosis: Obesity Osteoarthritis sprain, tonsellitis. Data reviewed: [facility] vital signs, nurses notes, radiologic studies. Counseling: I had a detailed discussion with the patient and/or guardian regarding: the historical points, exam findings, and any diagnostic results supporting the discharge/admit diagnosis, the presence of at least one elevated blood pressure reading (>120/80) during this emergency department visit. Administered Medications: No medications were administered Disposition: 11/25/17 12:21 Discharged to Home. Impression: Acute pharyngitis. - Condition is Stable. - Discharge Instructions: Pharyngitis, [id number]. - Prescriptions for Augmentin 875- 125 mg Oral Tablet - take 1 tablet by ORAL route every 12 hours for 10 days; 20 tablet. Tylenol- Codeine #3 300-30 mg Oral Tablet - take 2 tablet by ORAL route every 6 hours As needed; 30 tablet. - Medication Reconciliation Form, Thank You Letter, Antibiotic Education, Prescription Opioid Use form. - Follow up: Private Physician; When: Tomorrow; Reason: Continuance of care. Signatures: Mavis Neil RN RN aj1 Becky Ulloa RN RN Cyndee Ballard MD MD ma2 Corrections: (The following items were deleted from the chart) 12:46 12:21 11/25/2017 12:21 Discharged to Home. Impression: Acute pharyngitis. Condition is aj1 Stable. Forms are Medication Reconciliation Form, Thank You Letter, Antibiotic Education, Prescription Opioid Use. Follow up: Private Physician; When: Tomorrow; Reason: Continuance of care. ma2
--- NOTE | 2017-11-25 13:19 | ER ---
Nurse's Notes [facility] Name: Charito Michael Age: 52 yrs Sex: Female : 1965 Arrival Date: 11/25/2017 Time: 11:41 Bed 23 Private MD: Diagnosis: Acute pharyngitis Presentation: 11/25 11:47 Presenting complaint: Patient states: back pain and sore throat x 1 day. Transition of sv care: patient was not received from another setting of care. Onset of symptoms was November 24, 2017. Care prior to arrival: None. 11:47 Method Of Arrival: Ambulatory sv 11:47 Acuity: GIULIANO 4 sv 12:44 Risk Assessment: Do you want to hurt yourself or someone else? Patient reports no aj1 desire to harm self or others. Initial Sepsis Screen: Does the patient meet any 2 criteria? No. Patient's initial sepsis screen is negative. Does the patient have a suspected source of infection? Yes: Other: sore throat. Triage Assessment: 11:47 General: Appears in no apparent distress. comfortable, Behavior is calm, cooperative, sv appropriate for age. Pain: Complains of pain in back and sore throat Pain currently is 10 out of 10 on a pain scale. Neuro: Level of Consciousness is awake, alert, obeys commands, Oriented to person, place, time, situation, Moves all extremities. Full function Gait is steady. Respiratory: Respiratory effort is even, unlabored, Respiratory pattern is regular, symmetrical. Musculoskeletal: Circulation, motion, and sensation intact. Range of motion: intact in all extremities. Historical: - Allergies: 11:48 NKA; sv - PMHx: 11:48 CHF; COPD; HIV; Hypertension; seasonal allergies; sv - Immunization history:: Flu vaccine is not up to date. - Social history:: Smoking status: Patient/guardian denies using tobacco, Patient/guardian denies using alcohol, street drugs, The patient lives with family. - Ebola Screening: : No symptoms or risks identified at this time. - Family history:: not pertinent. Screenin:02 Abuse screen: Denies threats or abuse. Denies injuries from another. Nutritional aj1 screening: No deficits noted. Tuberculosis screening: No symptoms or risk factors identified. 12:45 Fall Risk None identified. aj1 Assessment: 12:02 General: Appears in no apparent distress. comfortable, Behavior is calm, cooperative, aj1 appropriate for age. Pain: Complains of pain in back, left aspect of posterior pharynx and right aspect of posterior pharynx. Neuro: Level of Consciousness is awake, alert, obeys commands. Cardiovascular: Patient's skin is warm and dry. Respiratory: Airway is patent Respiratory effort is even, unlabored, Respiratory pattern is regular, symmetrical, Breath sounds are clear bilaterally. GI: No signs and/or symptoms were reported involving the gastrointestinal system. : No signs and/or symptoms were reported regarding the genitourinary system. EENT: Throat is reddened has patchy exudate has enlarged tonsils bilaterally Reports difficulty swallowing. Derm: No signs and/or symptoms reported regarding the dermatologic system. Skin is pink, warm \T\ dry. normal. Musculoskeletal: Reports back pain. Vital Signs: 11:48 BP 134 / 83; Pulse 80; Resp 18; Temp 96.7; Pulse Ox 100% ; Weight 68.04 kg; Height 5 sv ft. 3 in. (160.02 cm); Pain 10/10; 11:48 Body Mass Index 26.57 (68.04 kg, 160.02 cm) sv ED Course: 11:41 Patient arrived in ED. as 11:47 Triage completed. sv 11:48 Arm band placed on Patient placed in an exam room, on a stretcher. sv 11:50 Cyndee Ballard MD is Attending Physician. ma2 11:54 Mavis Neil, HALLE is Primary Nurse. aj1 12:02 Patient has correct armband on for positive identification. Bed in low position. Call aj1 light in reach. Side rails up X 1. 12:02 No provider procedures requiring assistance completed. aj1 12:45 Patient did not have IV access during this emergency room visit. aj1 Administered Medications: No medications were administered Outcome: 12:21 Discharge ordered by MD. ma2 12:45 Discharged to home ambulatory. aj1 12:45 Condition: good 12:45 Discharge instructions given to patient, Instructed on discharge instructions, follow up and referral plans. no drinking with medication, no driving heavy equipment, medication usage, Demonstrated understanding of instructions, follow-up care, medications, Prescriptions given X 2. 12:46 Patient left the ED. aj1 Signatures: Mavis Neil RN RN Becky Vázquez RN RN Isabel Lopez Mohammad, MD CENTENO ma2
[2017-11-26 14:41] VITALS: BP 134/83; TEMP 96.7; O2SAT 100
== END 2017-11-25 12:46 | disposition home or self-care (01) ==
LOC: ER 11:39
DX: J02.9 Acute pharyngitis, unspecified (principal); I10 Essential (primary) hypertension; Z21 Asymptomatic human immunodeficiency virus [HIV] infection status
CPT/HCPCS: 99282

== ENCOUNTER 2017-12-23 09:56 | Emergency (ER) | payer OTHER ==
[2017-12-23] MEDS ORDERED: NYSTATIN 500,000 UNIT/5 ML UDC PO ONE (11:00)
--- NOTE | 2017-12-23 11:32 | EDPHYS ---
Physician Documentation [facility] Name: Chariot Michael Age: 52 yrs Sex: Female : 1965 Arrival Date: 12/23/2017 Time: 09:59 Bed 20 Private MD: Matt Khalil E ED Physician Juancarlos Brody HPI: 12/23 11:35 This 52 yrs old Black Female presents to ER via Ambulatory with complaints of Sore kb Throat, Back Pain, Blood Pressure Problem. 11:35 The patient presents with sore throat. kb 11:37 The patient describes throat pain as constant. Onset: The symptoms/episode kb began/occurred 2 day(s) ago. Severity of symptoms: At their worst the symptoms were moderate, in the emergency department the symptoms are unchanged. Modifying factors: The symptoms are alleviated by nothing, the symptoms are aggravated by swallowing, Patient's oral intake status: good Denies contact with similarly ill indivduals. Associated signs and symptoms: Pertinent positives: Sore throat. The patient has not experienced similar symptoms in the past. The patient has not recently seen a physician. 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 tw2 Historical: - Allergies: 10:02 NKA; tw2 - Home Meds: 10:02 unknown medications, states she takes several [Active]; "pain pills" [Active]; "blood tw2 pressure pills" [Active]; alprazolam 2 mg Oral tab 1 tab 3 times per day [Active]; - PMHx: 10:02 CHF; HIV; COPD; Hypertension; seasonal allergies; tw2 - Immunization history:: Adult Immunizations. - Social history:: Smoking status: . - Ebola Screening: : Patient denies travel to an Ebola-affected area in the 21 days before illness onset. ROS: 11:37 Constitutional: Negative for fever, chills, and weight loss, Cardiovascular: Negative kb for chest pain, palpitations, and edema, Respiratory: Negative for shortness of breath, cough, wheezing, and pleuritic chest pain, Abdomen/GI: Negative for abdominal pain, nausea, vomiting, diarrhea, and constipation, MS/Extremity: Negative for injury and deformity, Skin: Negative for injury, rash, and discoloration, Neuro: Negative for headache, weakness, numbness, tingling, and seizure. 11:37 ENT: Positive for sore throat. 11:37 Back: Positive for pain at rest, pain with movement. Exam: 11:38 Constitutional: This is a well developed, well nourished patient who is awake, alert, kb and in no acute distress. Head/Face: Normocephalic, atraumatic. Neck: Trachea midline, no thyromegaly or masses palpated, and no cervical lymphadenopathy. Supple, full range of motion without nuchal rigidity, or vertebral point tenderness. No Meningismus. Chest/axilla: Normal chest wall appearance and motion. Nontender with no deformity. No lesions are appreciated. Cardiovascular: Regular rate and rhythm with a normal S1 and S2. No gallops, murmurs, or rubs. Normal PMI, no JVD. No pulse deficits. Respiratory: Lungs have equal breath sounds bilaterally, clear to auscultation and percussion. No rales, rhonchi or wheezes noted. No increased work of breathing, no retractions or nasal flaring. Abdomen/GI: Soft, non-tender, with normal bowel sounds. No distension or tympany. No guarding or rebound. No evidence of tenderness throughout. Back: No spinal tenderness. No costovertebral tenderness. Full range of motion. Skin: Warm, dry with normal turgor. Normal color with no rashes, no lesions, and no evidence of cellulitis. MS/ Extremity: Pulses equal, no cyanosis. Neurovascular intact. Full, normal range of motion. Neuro: Awake and alert, GCS 15, oriented to person, place, time, and situation. Cranial nerves II-XII grossly intact. Motor strength 5/5 in all extremities. Sensory grossly intact. Cerebellar exam normal. Normal gait. 11:38 ENT: Mouth: Oral mucosa: noted to have obvious thrush, Tongue: displays thrush. Vital Signs: 10:06 BP 172 / 104; Pulse 85; Resp 18; Temp 97.8; Pulse Ox 99% ; sv 10:55 BP 155 / 93; Pulse 79; Resp 17; Pulse Ox 100% on R/A; tw2 MDM: 10:05 Patient medically screened. kb 11:30 Data reviewed: vital signs, nurses notes. Data interpreted: Pulse oximetry: on room air kb is 100 %. Interpretation: normal. Counseling: I had a detailed discussion with the patient and/or guardian regarding: the historical points, exam findings, and any diagnostic results supporting the discharge/admit diagnosis, lab results, the need for outpatient follow up, a family practitioner, to return to the emergency department if symptoms worsen or persist or if there are any questions or concerns that arise at home. 12/23 10:07 Order name: Flu; Complete Time: 11:04 kb 12/23 10:07 Order name: Strep; Complete Time: 10:32 kb 12/23 10:43 Order name: Throat Culture EDFL Administered Medications: 10:55 Drug: nystatin [id number] units Route: PO; tw2 11:14 Follow up: Response: No adverse reaction tw2 Disposition: 18:52 Co-signature as Attending Physician, Juancarlos Brody MD available for consultation at ps1 all times. . Disposition: 12/23/17 11:31 Discharged to Home. Impression: Candidal stomatitis, Chronic pain, not elsewhere classified - chronic back pain. - Condition is Stable. - Discharge Instructions: Chronic Pain, Thrush, Adult, [id number]. - Prescriptions for Nystatin 100,000 unit/mL Oral Suspension - take 5 milliliter by ORAL route every 8 hours for 6 days; 90 milliliter. Tramadol 50 mg Oral Tablet - take 1 tablet by ORAL route every 8 hours as needed; 12 tablet. - Medication Reconciliation Form, Thank You Letter, Antibiotic Education, Prescription Opioid Use form. - Follow up: Emergency Department; When: As needed; Reason: Worsening of condition. Follow up: Matt Khalil MD; When: 2 - 3 days; Reason: Recheck today's complaints, Continuance of care, Re-evaluation by your physician. Signatures: Dispatcher [employer] [facility] Erin Gastelum, WADE WALKER-Corrie Ramírez, RN RN tw2 Juancarlos Brody MD MD ps1 Corrections: (The following items were deleted from the chart) 11:40 11:31 12/23/2017 11:31 Discharged to Home. Impression: Candidal stomatitis; Chronic tw2 pain, not elsewhere classified - chronic back pain. Condition is Stable. Forms are Medication Reconciliation Form, Thank You Letter, Antibiotic Education, Prescription Opioid Use. Follow up: Emergency Department; When: As needed; Reason: Worsening of condition. Follow up: Matt Khalil; When: 2 - 3 days; Reason: Recheck today's complaints, Continuance of care, Re-evaluation by your physician. kb
--- NOTE | 2017-12-23 11:32 | ER ---
Nurse's Notes [facility] Name: Charito Michael Age: 52 yrs Sex: Female : 1965 Arrival Date: 12/23/2017 Time: 09:59 Bed 20 Private MD: Matt Khalil E Diagnosis: Candidal stomatitis;Chronic pain, not elsewhere classified-chronic back pain Presentation: 12/23 10:00 Presenting complaint: Patient states: coughing, sneezing, upper and middle back pain x sv 2 days. Also out of her BP meds. Transition of care: patient was not received from another setting of care. Onset of symptoms was December 21, 2017. Risk Assessment: Do you want to hurt yourself or someone else? Patient reports no desire to harm self or others. 10:00 Method Of Arrival: Ambulatory sv 10:00 Acuity: GIULIANO 3 sv 10:04 Initial Sepsis Screen: Does the patient meet any 2 criteria? No. Patient's initial tw2 sepsis screen is negative. Does the patient have a suspected source of infection? No. Patient's initial sepsis screen is negative. Care prior to arrival: None. Triage Assessment: 10:00 General: Appears in no apparent distress. comfortable, Behavior is calm, cooperative, sv appropriate for age. Pain: Complains of pain in left scapular area, right scapular area, left subscapular area, right subscapular area, left mid back and right mid back. EENT: No signs and/or symptoms were reported regarding the EENT system. Neuro: Level of Consciousness is awake, alert, obeys commands, Oriented to person, place, time, situation, Moves all extremities. Full function Gait is steady. Respiratory: Reports cough that is non-productive, sneezing Respiratory effort is even, unlabored, Respiratory pattern is regular, symmetrical. 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 tw2 Historical: - Allergies: 10:02 NKA; tw2 - Home Meds: 10:02 unknown medications, states she takes several [Active]; "pain pills" [Active]; "blood tw2 pressure pills" [Active]; alprazolam 2 mg Oral tab 1 tab 3 times per day [Active]; - PMHx: 10:02 CHF; HIV; COPD; Hypertension; seasonal allergies; tw2 - Immunization history:: Adult Immunizations. - Social history:: Smoking status: . - Ebola Screening: : Patient denies travel to an Ebola-affected area in the 21 days before illness onset. Screenin:01 Abuse screen: Denies threats or abuse. Nutritional screening: No deficits noted. tw2 Tuberculosis screening: No symptoms or risk factors identified. Fall Risk None identified. Assessment: 10:03 Pain: Complains of pain in back. Neuro: Level of Consciousness is awake, alert, obeys tw2 commands, Oriented to person, place, time, situation. Cardiovascular: Heart tones S1 S2 Patient's skin is warm and dry. Respiratory: Airway is patent Respiratory effort is even, unlabored, Respiratory pattern is regular, symmetrical, Breath sounds are clear bilaterally. GI: No signs and/or symptoms were reported involving the gastrointestinal system. : No signs and/or symptoms were reported regarding the genitourinary system. EENT: Throat is reddened Reports pain in throat. Derm: No signs and/or symptoms reported regarding the dermatologic system. Musculoskeletal: Range of motion:. Musculoskeletal: Reports pain in back. 10:55 Reassessment: Patient appears in no apparent distress at this time. No changes from tw2 previously documented assessment. Patient and/or family updated on plan of care and expected duration. Pain level reassessed. Patient is alert, oriented x 3, equal unlabored respirations, skin warm/dry/pink. 11:39 Reassessment: Patient appears in no apparent distress at this time. No changes from tw2 previously documented assessment. Patient and/or family updated on plan of care and expected duration. Pain level reassessed. Patient is alert, oriented x 3, equal unlabored respirations, skin warm/dry/pink. Vital Signs: 10:06 BP 172 / 104; Pulse 85; Resp 18; Temp 97.8; Pulse Ox 99% ; sv 10:55 BP 155 / 93; Pulse 79; Resp 17; Pulse Ox 100% on R/A; tw2 ED Course: 09:59 Patient arrived in ED. sb2 10:00 Matt Khalil MD is Private Physician. sb2 10:01 Bed in low position. Call light in reach. Pulse ox on. NIBP on. tw2 10:01 Arm band placed on. tw2 10:03 Erin [facility]astelum [facility]C [facility]. kb 10:04 Juancarlos Brody MD is Attending Physician. kb 10:05 Corrie Antunez, RN is Primary Nurse. tw2 10:06 Triage completed. sv 11:30 Matt Khalil MD is Referral Physician. kb 11:39 No provider procedures requiring assistance completed. Patient did not have IV access tw2 during this emergency room visit. Administered Medications: 10:55 Drug: nystatin [id number] units Route: PO; tw2 11:14 Follow up: Response: No adverse reaction tw2 Outcome: 11:31 Discharge ordered by . kb 11:39 Discharged to home ambulatory. tw2 11:39 Condition: stable 11:39 Discharge instructions given to patient, Instructed on discharge instructions, follow up and referral plans. no drinking with medication, no driving heavy equipment, medication usage, Demonstrated understanding of instructions, follow-up care, medications, Prescriptions given X 2. 11:40 Patient left the ED. tw2 Signatures: Erin Gastelum, DENISE-C DENISE-Becky Borjas RN RN Corrie Antunez, HALLE RN tw2 Alice Young 2
[2017-12-23 12:15] VITALS: TEMP 97.8
[2017-12-23 12:16] VITALS: BP 155/93; O2SAT 100
== END 2017-12-23 11:40 | disposition home or self-care (01) ==
LOC: ER 09:56
DX: B37.0 Candidal stomatitis (principal); M54.9 Dorsalgia, unspecified; G89.29 Other chronic pain; B20 Human immunodeficiency virus [HIV] disease; I11.0 Hypertensive heart disease with heart failure; I50.9 Heart failure, unspecified; J44.9 Chronic obstructive pulmonary disease, unspecified; Z79.899 Other long term (current) drug therapy
CPT/HCPCS: 87070; 87081; 87804; 99283

== ENCOUNTER 2018-01-10 21:43 | Inpatient (IN) | payer OTHER ==
[2018-01-10 23:51] LABS: Absolute Lymphocytes (CBC) 1.2 K/uL (0.7-4.9); Absolute Monocytes 0.7 K/uL (0.1-1.3); Absolute Neutrophil 5.3 K/uL (1.8-8.0); Basophils % 0.2 % (0-1.3); Hematocrit 27.1 % (36.0-45.0); Lymphocytes % 16.4 % (15.3-44.8); MCH 25.6 pg (27.0-35.0); MCV 80.2 fL (80-100); MPV 8.5 fL (7.6-11.3); Protime INR 1.24; RBC Red Blood Cell Count 3.38 M/uL (3.86-4.86)
[2018-01-11 00:16] LABS: Bilirubin Direct 0.1 mg/dL (0-0.2); Bilirubin Total 0.3 mg/dL (0.2-1.0); Potassium 3.9 mmol/L (3.5-5.1); Protein, Total 10.4 g/dL (6.4-8.2); Troponin (Emerg Dept Use Only) 0.26 ng/mL (0.0-0.045)
--- NOTE | 2018-01-11 01:20 | ER ---
Nurse's Notes [facility] Name: Charito Michael Age: 52 yrs Sex: Female : 1965 Arrival Date: 01/10/2018 Time: 21:48 Bed 13 Private MD: Diagnosis: Unstable angina Presentation: 01/10 21:48 Presenting complaint: EMS states: Pt was here with c/o back pain yesterday. 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 Transition of care: patient was not received from another setting of care. Onset of symptoms was January 10, 2018 at 18:00. Risk Assessment: Do you want to hurt yourself or someone else? Patient reports no desire to harm self or others. Initial Sepsis Screen: Does the patient meet any 2 criteria? No. Patient's initial sepsis screen is negative. Does the patient have a suspected source of infection? No. Patient's initial sepsis screen is negative. Care prior to arrival: None. 21:48 Method Of Arrival: EMS: [facility] ed1 21:49 Acuity: GIULIANO 3 kr2 Triage Assessment: 21:51 General: Appears in no apparent distress. Behavior is calm, cooperative. Pain: ed1 Complains of pain in chest Pain does not radiate. Pain currently is 6 out of 10 on a pain scale. Quality of pain is described as aching, Pain began 2 hours ago. Is continuous. EENT: No signs and/or symptoms were reported regarding the EENT system. Neuro: Level of Consciousness is awake, alert, obeys commands, Oriented to person, place, time, situation. Cardiovascular: Reports chest pain, Denies diaphoresis, fatigue, lightheadedness, nausea, Heart tones S1 S2 present Capillary refill < 3 seconds in bilateral fingers JVD is absent Patient's skin is warm and dry. Rhythm is sinus rhythm. Respiratory: Airway is patent Respiratory effort is even, unlabored, Respiratory pattern is regular, symmetrical, Breath sounds are clear bilaterally. Denies cough, shortness of breath. GI: Patient currently denies diarrhea, nausea, vomiting. : No signs and/or symptoms were reported regarding the genitourinary system. Derm: Skin is intact, is healthy with good turgor, Skin is dry, Skin is normal, Skin temperature is warm. Musculoskeletal: Circulation, motion, and sensation intact. 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 - Social history:: Smoking status: unknown. - Ebola Screening: : Patient negative for fever greater than or equal to 101.5 degrees Fahrenheit, and additional compatible Ebola Virus Disease symptoms Patient denies exposure to infectious person Patient denies travel to an Ebola-affected area in the 21 days before illness onset No symptoms or risks identified at this time. Screenin:54 Abuse screen: Denies threats or abuse. Denies injuries from another. Nutritional ed1 screening: No deficits noted. Tuberculosis screening: No symptoms or risk factors identified. Fall Risk None identified. Assessment: 21:54 General: See triage assessment. Pain: Complains of pain in chest Pain currently is 6 ed1 out of 10 on a pain scale. Quality of pain is described as aching, Pain began 2 hours ago. Is continuous. 22:00 Reassessment: I agree with assessment. fc 22:38 Reassessment: Patient appears in no apparent distress at this time. No changes from ed1 previously documented assessment. Patient and/or family updated on plan of care and expected duration. Pain level reassessed. Patient is alert, oriented x 3, equal unlabored respirations, skin warm/dry/pink. Patient states symptoms have not improved. 1201 00:08 Reassessment: Patient appears in no apparent distress at this time. No changes from ed1 previously documented assessment. Patient and/or family updated on plan of care and expected duration. Pain level reassessed. Patient is alert, oriented x 3, equal unlabored respirations, skin warm/dry/pink. Patient states symptoms have not improved. 01:10 Reassessment: Patient appears in no apparent distress at this time. Patient and/or jb4 family updated on plan of care and expected duration. Pain level reassessed. Patient is alert, oriented x 3, equal unlabored respirations, skin warm/dry/pink. 02:00 Reassessment: Patient appears in no apparent distress at this time. Patient and/or jb4 family updated on plan of care and expected duration. Pain level reassessed. Patient is alert, oriented x 3, equal unlabored respirations, skin warm/dry/pink. 03:00 Reassessment: Patient appears in no apparent distress at this time. Patient and/or jb4 family updated on plan of care and expected duration. Pain level reassessed. Patient is alert, oriented x 3, equal unlabored respirations, skin warm/dry/pink. 03:59 Reassessment: Patient appears in no apparent distress at this time. Patient and/or jb4 family updated on plan of care and expected duration. Pain level reassessed. Patient is alert, oriented x 3, equal unlabored respirations, skin warm/dry/pink. Vital Signs: 01/10 21:51 BP 188 / 107; Pulse 106; Resp 26; Temp 97.6(O); Pulse Ox 97% on R/A; Pain 6/10; ed1 22:38 BP 165 / 96; Pulse 104; Resp 22; Pulse Ox 96% on R/A; Pain 6/10; ed1 12/01 00:08 BP 157 / 75; Pulse 108; Resp 22; Pulse Ox 99% on R/A; Pain 6/10; ed1 01:10 BP 147 / 87; Pulse 103; Resp 18; Pulse Ox 97% on R/A; jb4 02:45 BP 141 / 78; Pulse 99; Resp 16; Pulse Ox 96% on R/A; jb4 03:30 BP 121 / 77; Pulse 97; Resp 20; Pulse Ox 96% on R/A; jb4 ED Course: 01/10 21:48 Patient arrived in ED. ed1 21:49 Triage completed. kr2 21:49 EKG done, by ED staff, reviewed by Jaylan King MD. kr2 21:50 Jaylan King MD is Attending Physician. gs 21:51 Arm band placed on right wrist. EKG completed in triage. Results shown to MD. ed1 21:54 Patient maintains SpO2 saturation greater than 95% on room air. ed1 21:54 Patient has correct armband on for positive identification. Placed in gown. Bed in low ed1 position. Call light in reach. Side rails up X 1. conveyor monitor on. Pulse ox on. NIBP on. Door closed. Lights dimmed. Warm blanket given. 22:16 Jen Hyde LVN is Primary Nurse. ed1 23:25 Initial lab(s) drawn, by me, sent to lab. Inserted saline lock: 22 gauge in right ed1 antecubital area, using aseptic technique. Blood collected. 23:59 X-ray completed. Portable x-ray completed in exam room. Patient tolerated procedure sg4 well. 01/11 00:41 Report given to HALLE Hinton. ed1 00:42 Primary Nurse role handed off by Jen Hyde LVN ed1 01:09 Jordan Romero, RN is Primary Nurse. jb4 01:19 Cyndee Hylton MD is Hospitalizing Provider. 03:30 No provider procedures requiring assistance completed. Patient admitted, IV remains in jb4 place. Administered Medications: 01:25 Drug: Aspirin Chewable Tablet 324 mg Route: PO; jb4 03:23 Follow up: Response: No adverse reaction jb4 Outcome: 01:19 Decision to Hospitalize by Provider. gs 03:30 Admitted to Tele accompanied by tech, via wheelchair, room 419, with chart, Report jb4 called to HALLE Hogan 03:30 Condition: stable 03:30 Discharge instructions given to patient, Instructed on the need for admit, Demonstrated understanding of instructions. 04:04 Patient left the ED. jb4 Signatures: Verito Perez, RN HALLE Jen Hyde LVN LVN ed1 Jordan Romero, RN RN jb4 Jaylan King MD MD Tracy Escamilla RN RN kr2 Oriana Vela sg4
--- NOTE | 2018-01-11 01:21 | EDPHYS ---
Physician Documentation [facility] Name: Charito Michael Age: 52 yrs Sex: Female : 1965 Arrival Date: 01/10/2018 Time: 21:48 Bed 13 Private MD: ED Physician Jaylan King HPI: 01/11 01:17 This 52 yrs old Black Female presents to ER via EMS with complaints of Chest Pain > 30 gs y/o. 01:17 The patient or guardian reports chest pain that is located primarily in the anterior gs chest wall. Onset: 2 day(s) ago. The pain does not radiate. Associated signs and symptoms: Pertinent positives: shortness of breath. The chest pain is described as a heaviness. Duration: The patient or guardian reports multiple episodes, that are intermittent, that wax and wane, the episodes last approximately 10 minute(s). Severity of pain: At its worst the pain was severe in the emergency department the pain has resolved. The patient has experienced similar episodes in the past, several times. 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 - Social history:: Smoking status: unknown. - Ebola Screening: : Patient negative for fever greater than or equal to 101.5 degrees Fahrenheit, and additional compatible Ebola Virus Disease symptoms Patient denies exposure to infectious person Patient denies travel to an Ebola-affected area in the 21 days before illness onset No symptoms or risks identified at this time. ROS: 01/11 01:17 All other systems are negative. gs Exam: 01:17 Head/Face: Normocephalic, atraumatic. Eyes: Pupils equal round and reactive to light, gs extra-ocular motions intact. Lids and lashes normal. Conjunctiva and sclera are non-icteric and not injected. Cornea within normal limits. Periorbital areas with no swelling, redness, or edema. ENT: Nares patent. No nasal discharge, no septal abnormalities noted. Tympanic membranes are normal and external auditory canals are clear. Oropharynx with no redness, swelling, or masses, exudates, or evidence of obstruction, uvula midline. Mucous membranes moist. Neck: Trachea midline, no thyromegaly or masses palpated, and no cervical lymphadenopathy. Supple, full range of motion without nuchal rigidity, or vertebral point tenderness. No Meningismus. Chest/axilla: Normal chest wall appearance and motion. Nontender with no deformity. No lesions are appreciated. Cardiovascular: Regular rate and rhythm with a normal S1 and S2. No gallops, murmurs, or rubs. Normal PMI, no JVD. No pulse deficits. Respiratory: Lungs have equal breath sounds bilaterally, clear to auscultation and percussion. No rales, rhonchi or wheezes noted. No increased work of breathing, no retractions or nasal flaring. Abdomen/GI: Soft, non-tender, with normal bowel sounds. No distension or tympany. No guarding or rebound. No evidence of tenderness throughout. Back: No spinal tenderness. No costovertebral tenderness. Full range of motion. Skin: Warm, dry with normal turgor. Normal color with no rashes, no lesions, and no evidence of cellulitis. MS/ Extremity: Pulses equal, no cyanosis. Neurovascular intact. Full, normal range of motion. Neuro: Awake and alert, GCS 15, oriented to person, place, time, and situation. Cranial nerves II-XII grossly intact. Motor strength 5/5 in all extremities. Sensory grossly intact. Cerebellar exam normal. Normal gait. 01:17 Constitutional: The patient appears alert, awake. 01:17 ECG was reviewed by the Attending Physician. Vital Signs: 01/10 21:51 BP 188 / 107; Pulse 106; Resp 26; Temp 97.6(O); Pulse Ox 97% on R/A; Pain 6/10; ed1 22:38 BP 165 / 96; Pulse 104; Resp 22; Pulse Ox 96% on R/A; Pain 6/10; ed1 12/ 00:08 BP 157 / 75; Pulse 108; Resp 22; Pulse Ox 99% on R/A; Pain 6/10; ed1 01:10 BP 147 / 87; Pulse 103; Resp 18; Pulse Ox 97% on R/A; jb4 02:45 BP 141 / 78; Pulse 99; Resp 16; Pulse Ox 96% on R/A; jb4 03:30 BP 121 / 77; Pulse 97; Resp 20; Pulse Ox 96% on R/A; jb4 MDM: 01/10 23:12 Patient medically screened. 01/11 01:17 Differential diagnosis: coronary artery disease chest wall pain, congestive heart gs failure pleurisy, pneumonia, stable angina, unstable angina. Data reviewed: vital signs, nurses notes. Counseling: I had a detailed discussion with the patient and/or guardian regarding: the historical points, exam findings, and any diagnostic results supporting the discharge/admit diagnosis, the need for further work-up and treatment in the hospital. 01/10 23:12 Order name: Basic Metabolic Panel 01/10 23:12 Order name: CBC with Diff 01/10 23:12 Order name: LFT's 01/10 23:12 Order name: Magnesium 01/10 23:12 Order name: NT PRO-BNP 01/10 23:12 Order name: PT-INR 01/10 23:12 Order name: Troponin (emerg Dept Use Only) 01/10 23:52 Order name: CBC with Automated Diff; Complete Time: 01:06 EDMS 01/10 23:52 Order name: Protime (+INR); Complete Time: 01:06 EDMS 01/11 00:27 Order name: Basic Metabolic Panel; Complete Time: 01:06 EDMS 01/11 00:28 Order name: Liver (Hepatic) Function; Complete Time: 01:06 EDMS 01/11 00:28 Order name: Troponin (Emerg Dept Use Only); Complete Time: 01:06 EDMS 01/11 00:28 Order name: NT PRO-BNP; Complete Time: 01:06 EDMS 01/11 00:28 Order name: Magnesium; Complete Time: 01:06 EDMS 01/10 23:12 Order name: XRAY Chest (1 view) 01/10 23:12 Order name: EKG; Complete Time: 23:14 01/10 23:12 Order name: Cardiac monitoring; Complete Time: 23:13 01/10 23:12 Order name: EKG - Nurse/Tech; Complete Time: 23:13 01/10 23:12 Order name: IV Saline Lock; Complete Time: 23:26 01/10 23:12 Order name: Labs collected and sent; Complete Time: : 01/10 23:12 Order name: O2 Per Protocol; Complete Time: : 01/10 23:12 Order name: O2 Sat Monitoring; Complete Time: : 01/11 03:05 Order name: Lipid Profile EDMS EC:17 Rate is 104 beats/min. Rhythm is regular. WA interval is normal. QRS interval is gs normal. QT interval is normal. T waves are Inverted. Clinical impression: NSR w/ Non-specific ST/T Changes. Interpreted by me. Administered Medications: :25 Drug: Aspirin Chewable Tablet 324 mg Route: PO; 4 03:23 Follow up: Response: No adverse reaction jb4 Disposition: 01/11/18 01:19 Hospitalization ordered by Cyndee Hylton for Inpatient Admission. Preliminary diagnosis is Unstable angina. - Bed requested for Telemetry/MedSurg (Inpatient). - Status is Inpatient Admission. jb4 - Condition is Stable. - Problem is new. - Symptoms have improved. UTI on Admission? No Signatures: Dispatcher [employer] EDME Dayna Diehl RN RN Jen Hyde, WIND ENERGY ENGINEER WIND ENERGY ENGINEER ed1 Jordan Romero RN RN [facility] Jaylan King MD MD Corrections: (The following items were deleted from the chart) 03:31 01:19 Hospitalization Ordered by Cyndee Hylton MD for Inpatient Admission. Preliminary kl diagnosis is Unstable angina. Bed requested for Telemetry/MedSurg (Inpatient). Status is Inpatient Admission. Condition is Stable. Problem is new. Symptoms have improved. UTI on Admission? No. gs 04:04 03:31 01/11/2018 01:19 Hospitalization Ordered by Cyndee Hylton MD for Inpatient jb4 Admission. Preliminary diagnosis is Unstable angina. Bed requested for Telemetry/MedSurg (Inpatient). Status is Inpatient Admission. Condition is Stable. Problem is new. Symptoms have improved. UTI on Admission? No. kl
[2018-01-11] MEDS ORDERED: ASPIRIN 81 MG CHEWABLE TABLET ONE (01:30)
[2018-01-11] MEDS ORDERED: MORPHINE 4 MG/ML SYR IV PRN (02:11)
[2018-01-11] MEDS ORDERED: ALPRAZOLAM 0.25 MG TABLET PO PRN (02:11)
[2018-01-11] MEDS ORDERED: ACETAMINOPHEN 500 MG TAB PO PRN (02:11)
--- NOTE | 2018-01-11 08:28 | EKG ---
Test Date: 2018-01-10 Test Time: 21:47:27 Cutter Operator Tile: MEASUREMENT RESULTS: Intervals: Rate: 104 NV: 156 QRSD: 82 QT: 346 QTc: 454 [place]: P: 66 NV: 156 QRS: 56 T: 82 INTERPRETIVE STATEMENTS: Sinus tachycardia Biatrial enlargement Left ventricular hypertrophy Cannot rule out Septal infarct, age undetermined T wave abnormality, consider lateral ischemia Abnormal ECG Compared to ECG 10/08/2017 13:05:04 Myocardial infarct finding now present T-wave abnormality now present Sinus rhythm no longer present Electronically Signed On 01-11-18 08:27:30 RACK PULLER by Spencer Hooks
[2018-01-11] MEDS ORDERED: ENOXAPARIN 40 MG/0.4 ML SQ SCH (09:00)
--- NOTE | 2018-01-11 09:50 | P.HP ---
Certification for Inpatient Patient admitted to: Observation With expected LOS: <2 Midnights Patient will require the following post-hospital care: None Practitioner: I am a practitioner with admitting privileges, knowledge of patient current condition, hospital course, and medical plan of care. Services: Services provided to patient in accordance with Admission requirements found in Title 42 Section 412.3 of the Code of Federal Regulations Patient History Date of Service: 01/11/18 Reason for admission: Chest pain rule out acute coronary syndrome History of Present Illness: Patient is a 52-year-old female who has a history of HIV, hypertension, diabetes in multiple other medical conditions who presents to the hospital with chest discomfort. Pain was mainly in the sternal region. Patient had no radiation. She states that her chest pain resolved. He currently feels well. Will admit her because of her extensive history and will rule around for acute coronary syndrome. Monitor her vitals of blood sugars closely. Monitor blood pressure closely as well. Allergies No Known Drug Allergies Allergy (Verified 11/01/15 11:29) Unknown NKA Allergy (Uncoded 03/07/16 13:58) Unknown No Known Allergies Allergy (Uncoded 03/06/16 14:51) Unknown Home Medications: Amitriptyline HCl 1 tab PO BEDTIME 11/02/15 ALPRAZolam [Xanax*] 1 mg PO TID 01/11/18 Fluticasone [Flovent Hfa 110] 2 sprays IH BID 01/11/18 Gabapentin 100 mg PO TID 01/11/18 Ibuprofen [Ibu] 600 mg PO Q6H PRN 01/11/18 Nystatin 5 ml PO QID 01/11/18 Zolpidem Tartrate 10 mg PO BEDTIME PRN 01/11/18 - Past Medical/Surgical History Has patient received pneumonia vaccine in the past: No Diabetic: No -: HIV -: Chronic pain -: PCP pneumonia -: Acute kidney injury -: CAD s/p stent placement -: 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 moist/pink, EOMI, Sclerae nonicteric Neck: Supple, 2+ carotid pulse no bruit, No LAD, Without JVD or thyroid abnormality Respiratory: Clear to auscultation bilaterally, Normal air movement Cardiovascular: Regular rate/rhythm, Normal S1 S2, Systolic murmur Gastrointestinal: Normal bowel sounds, Soft and benign, Non-distended, No tenderness Musculoskeletal: No clubbing, No swelling, No contractures, No tenderness Integumentary: No rashes Neurological: Normal gait, Normal speech, Normal strength at 5/5 x4 extr, Normal tone, Sensation intact, Cranial nerves 3-12 intact, Normal affect Lymphatics: No axilla or inguinal lymphadenopathy - Studies Laboratory Data (last 24 hrs) 01/10/18 23:19: PT 14.7 H, INR 1.24 01/10/18 23:19: WBC 7.3, Hgb 8.6 L, Hct 27.1 L, Plt Count 321 01/10/18 23:19: Sodium 135 L, Potassium 3.9, BUN 13, Creatinine 1.40 H, Glucose 92, Magnesium 2.0, Total Bilirubin 0.3, AST 25, ALT 18, Alkaline Phosphatase 104 Assessment & Plan - Problems (Diagnosis) (1) CAD (coronary artery disease), [place] coronary artery Current Visit: No Status: Acute (2) HIV (human immunodeficiency virus infection) Onset Date: 01/18/16 Current Visit: No Status: Acute (3) HTN (hypertension) Onset Date: 01/18/16 Current Visit: No Status: Acute (4) History of pneumocystis pneumonia Current Visit: No Status: Acute - Plan 1. Serial troponins and EKG 2. Cardiology consultation 3. Echocardiogram and stress test 4. Anti-platelet therapy, anti coagulation, beta-amanda, statin, and O2 as needed 5. IV morphine for pain 6. Nitro p.r.n. 7. GI/DVT prophylaxis Discharge Plan: Home Plan to discharge in: Greater than 2 days - Advance Directives Does patient have a Living Will: No Does patient have a Durable POA for Healthcare: No - Code Status/Comfort Care Code Status Assessed: Yes Code Status: Full Code Critical Care: No Time Spent Managing PTS Care (In Minutes): 50
[2018-01-11] MEDS: ASPIRIN EC 81 MG TAB PO SCH (10:23)
[2018-01-11] MEDS: METOPROLOL TAR 50 MG TAB PO SCH ×2 (10:23→20:55)
[2018-01-11] MEDS ORDERED: ZOLPIDEM TARTRATE 10 MG TABLET PO PRN (10:29)
--- NOTE | 2018-01-11 11:18 | RAD REPORT ---
EXAM DESCRIPTION: RAD - Chest Single View - 01/11/2018 12:02 am CLINICAL HISTORY: CHEST PAIN Chest pain. COMPARISON: Chest Pa And Lat (2 Views) dated 08/09/2017; Chest Pa And Lat (2 Views) dated 07/11/2017; Chest Pa And Lat (2 Views) dated 03/18/2017; Chest Pa And Lat (2 Views) dated 03/22/2016 FINDINGS: Portable technique limits examination quality. Mild interstitial pulmonary edema seen. The heart is normal in size. No displaced fractures. IMPRESSION: Mild interstitial pulmonary edema.
[2018-01-11] MEDS: NYSTATIN 500,000 UNIT/5 ML UDC PO SCH ×3 (13:00→20:54)
[2018-01-11] MEDS: GABAPENTIN 100 MG CAP PO SCH ×2 (14:00→20:54)
--- NOTE | 2018-01-11 14:09 | CON ---
CARDIOLOGY CONSULT History Of Present Illness: Ms. Michael came to the hospital because of back pain, later mentioned that she also had chest pain. 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 Yesterday, she had back pain, it got worse. The pain in the front of her chest is pretty constant over the last 24 hours. Past Medical History: She has a history of hypertension, seasonal allergies, congestive heart failur e, and COPD. Social History: She denies using tobacco now. I think, she has used tobacco heavily in the past. T here is no history of recreational drug use or heavy alcohol use. Allergies: NO ALLERGIES ARE KNOWN. Physical Examination: VITAL SIGNS: The patient is 5 feet 3 inches, 145 pounds. GENERAL: Not in distress. Lungs: Clear. Heart: S4 gallop. No friction rub. Abdomen: Soft. Extremities: No edema. Distal pulses diminished, but palpable. Laboratory Data: Her creatinine is 1.4. She has 2 troponins drawn about 6 hours apart, they are exa ctly the same. N-terminal proBNP is 309, just barely above normal. She has a very elevated total pr otein level of 10. She has a calcium level that is normal, and her electrocardiogram shows left vent ricular hypertrophy, questionable septal [place], T-wave abnormality, sinus tachycardia. Impression: There are a lot of things, but we think this is probably not an acute coronary syndrome. She is not a good candidate for undergoing a cardiac cath emergently. She has renal insufficiency and anemia that would both be complicating factors. We will get an echocardiogram, see if we can get her anemia and renal function improved. See if cause for her very elevated protein level might be m ultiple myeloma and proceed from there. Perhaps a pharmacologic nuclear stress test would be better than a cardiac cath once her renal failure improves dramatically. NICHOLE/TAMI Voice ID: [id number] Report ID: [id number]
--- NOTE | 2018-01-11 17:31 | PN ---
Date of Progress Note: 01/11/2018 Subjective: The patient was seen and examined. Chart reviewed, and case was discussed with RN. The patient states her chest pain has improved. Still complaining of some chest pain that radiates to t he back. No shortness of breath. Code Status: Full code. Medications: List reviewed. Physical Examination: Vital Signs: Temperature 99.3, heart rate 69, blood pressure 124/74, respirations 20, O2 100% on monica m air. General: Awake, alert, oriented x3, in some mild distress, appears older than stated age. Frail fem julius. CV: S1, S2. Regular rate and rhythm. Peripheral pulses present. Respiratory: Moving air well bilaterally. No wheezing or stridor. Gastrointestinal: Abdomen is soft, nontender, nondistended. Positive bowel sounds. Extremities: No clubbing, cyanosis, or edema. Neuro: Nonfocal. Laboratory Data: Troponin 0.26; 0.25. Radiological Data: Chest x-ray shows mild interstitial pulmonary edema, personally reviewed. Assessment And Plan: A 52-year-old female with: 1.Hqb-[place]-kdhgsnin myocardial infarction. Continue chest pain guidelines. Follow up with Cardiology recommendation. The patient is complaining of some mild chest pain radiating to the back. 2.Coronary artery disease, [place] artery and [place] heart with angina. 3.HIV, unknown CD4 count. 4.Essential hypertension. 5.History of Pneumocystis pneumonia. 6.Chronic pain syndrome. 7.Chronic kidney disease, stage 2. Continue to monitor. 8.Normocytic hypochromic anemia, likely anemia of chronic disease. Monitor H and H, transfuse as ne eded. Plan: We will switch to full-dose Lovenox. Continue aspirin, statin, beta-amanda. Resume home med ications as appropriate. Follow up with Cardiology recommendations. /TAMI Voice ID: [id number] Report ID: [id number]
[2018-01-11] MEDS: ATORVASTATIN 40 MG TAB PO SCH (20:54)
[2018-01-11] MEDS: ENOXAPARIN 80 MG/0.8 ML SQ SCH (20:54)
[2018-01-11] MEDS ORDERED: FLUTICASONE 110 MCG/PUFF 12 GM INH IH SCH (21:00)
[2018-01-11] MEDS ORDERED: AMITRIPTYLINE HCL PO SCH (21:00)
[2018-01-12 06:28] LABS: Absolute Lymphocytes (CBC) 1.8 K/uL (0.7-4.9); Absolute Neutrophil 7.8 K/uL (1.8-8.0); Basophils % 0.1 % (0-1.3); Hematocrit 27.7 % (36.0-45.0); Lymphocytes % 16.7 % (15.3-44.8); MCH 25.4 pg (27.0-35.0); MCV 80.2 fL (80-100); MPV 8.6 fL (7.6-11.3); Monocytes % 9.8 % (3.3-12.3); RBC Red Blood Cell Count 3.46 M/uL (3.86-4.86)
[2018-01-12 06:39] VITALS: BMI 25.1
[2018-01-12 06:53] LABS: Potassium 3.6 mmol/L (3.5-5.1)
[2018-01-12] MEDS: GABAPENTIN 100 MG CAP PO SCH ×3 (08:20→21:00)
[2018-01-12] MEDS: METOPROLOL TAR 50 MG TAB PO SCH (08:20)
[2018-01-12] MEDS: ASPIRIN EC 81 MG TAB PO SCH (08:21)
[2018-01-12] MEDS: NYSTATIN 500,000 UNIT/5 ML UDC PO SCH ×4 (08:21→21:00)
[2018-01-12] MEDS: ENOXAPARIN 80 MG/0.8 ML SQ SCH ×2 (08:21→20:26)
--- NOTE | 2018-01-12 09:18 | RAD REPORT ---
EXAM DESCRIPTION: CT - Ct Stroke Brain Wo Cont - 01/12/2018 9:08 am CLINICAL HISTORY: Acute stroke symptoms, right-sided facial droop, difficulty talking CLINICAL HISTORY: CT head January 2016 TECHNIQUE: Axial 5 millimeter thick images of the head were obtained without IV contrast. All CT scans are performed using dose optimization technique as appropriate and may include automated exposure control or mA/KV adjustment according to patient size. FINDINGS: No intracranial hemorrhage, mass, or cerebral edema. No acute cortical based infarction id entified. Ventricles are normal in size. No atrophy changes are present. Patient has advanced white m atter disease. There is diminished attenuation that extends into the bilateral external capsules, lef t greater than right. White matter findings are not clearly different from 2016 but could mask nonhem orrhagic CVA. Diminished attenuation in the brainstem is suspected; however, beam hardening artifact limits assessment on CT imaging. No globe or orbital content abnormality. Visualized portions of the mastoid air cells, paranasal sinuses, and orbits are unremarkable. Findings telephoned to the referring physician 9:13 a.m.. IMPRESSION: No intracranial hemorrhage and no acute cortical based infarction identifiable. Extensive white matter disease is present but nonspecific at this age. Pattern is not clearly differe nt from comparison. The extent of white matter disease could mask nonhemorrhagic infarction. Followup MR imaging could be utilized to assess for acute CVA or to further characterize this advanced for age white matter disea se pattern.
[2018-01-12 09:30] LABS: Absolute Lymphocytes (CBC) 1.5 K/uL (0.7-4.9); Absolute Neutrophil 10.5 K/uL (1.8-8.0); Basophils % 0.2 % (0-1.3); Hematocrit 26.8 % (36.0-45.0); Lymphocytes % 11.2 % (15.3-44.8); MCH 25.6 pg (27.0-35.0); MCV 79.9 fL (80-100); MPV 8.3 fL (7.6-11.3); Monocytes % 7.8 % (3.3-12.3); RBC Red Blood Cell Count 3.36 M/uL (3.86-4.86)
[2018-01-12 09:34] LABS: Protime INR 1.43
[2018-01-12] MEDS ORDERED: NA CHLORIDE 0.9% 1,000 ML ONE (10:14)
--- NOTE | 2018-01-12 10:19 | RAD REPORT ---
EXAM DESCRIPTION: RAD - Chest Single View - 01/12/2018 9:42 am CLINICAL HISTORY: Stroke protocol COMPARISON: January 10 TECHNIQUE: AP portable chest image was obtained 0926 hours . FINDINGS: Lung volumes are low. Patient has a baseline prominence of the interstitial markings. Ther e is patchy airspace opacification in the mid and lower left lung field. Infectious an aspiration pne umonias are both possible. Trachea is midline. Mild cardiomegaly without vascular engorgement. Heart size is not substantially different from the prior study. No measurable pleural effusion and no pneum othorax. No acute bony abnormality seen. No acute aortic findings suspected. IMPRESSION: Mid and lower left lung field opacification from infectious or aspiration pneumonia. Baseline prominent interstitial pattern.
--- NOTE | 2018-01-12 14:26 | RAD REPORT ---
EXAM DESCRIPTION: CT - Neck Angio - 01/12/2018 1:09 pm CLINICAL HISTORY: Right parietal nonhemorrhagic CVA TECHNIQUE: During dynamic enhancement using nonionic IV contrast, axial 1.5 mm thick images of the n bradley were obtained. Sagittal and axial reconstruction images were generated and reviewed. All CT scans are performed using dose optimization technique as appropriate and may include automated exposure control or mA/KV adjustment according to patient size. FINDINGS: No aneurysm or vascular malformation identified. No carotid or vertebral dissection. No aortic arch or great vessel origin abnormality seen. Vertebral artery origins unremarkable as well . No stenosis, vasculitis or other significant carotid artery finding. Patient has carotid bulb calci fications on the right without measurable luminal narrowing. No focal abnormality of either vertebral artery. Basilar artery is normal. IMPRESSION: Minimal atherosclerotic change with no dissection, stenosis or other significant findin g.
--- NOTE | 2018-01-12 14:35 | RAD REPORT ---
EXAM DESCRIPTION: CT - Head angio - 01/12/2018 1:09 pm CLINICAL HISTORY: Right parietal nonhemorrhagic acute CVA TECHNIQUE: During dynamic enhancement using nonionic IV contrast, axial 1 millimeter thick images of the head were obtained. Sagittal and axial reconstruction images were generated and reviewed. All CT scans are performed using dose optimization technique as appropriate and may include automated exposure control or mA/KV adjustment according to patient size. COMPARISON: CT head same date FINDINGS: No aneurysm or vascular malformation identified. Major venous sinuses are patent. No stenosis, named branch occlusion, vasculitis or other significant vascular finding identifiable. A specific named branch occlusion supplying the right parietal CVA is not evident. IMPRESSION: No aneurysm or vascular malformation. No significant atherosclerotic changes seen and no named branch occlusion identifiable in the area of right parietal acute CVA.
[2018-01-12] MEDS: Levofloxacin 750mg IV 750 MG/150 ML BAG IV SCH (16:14)
--- NOTE | 2018-01-12 16:50 | EKG ---
Test Date: 2018-01-12 Test Time: 09:56:41 Pen Tester: CAMILLE MEASUREMENT RESULTS: Intervals: Rate: 76 NM: 156 QRSD: 92 QT: 380 QTc: 427 [place]: P: 60 NM: 156 QRS: 49 T: 146 INTERPRETIVE STATEMENTS: Normal sinus rhythm Right atrial enlargement Moderate voltage criteria for LVH, may be normal variant ST & T wave abnormality, consider lateral ischemia Abnormal ECG Compared to ECG 01/12/2018 09:55:55 Prolonged QT interval no longer present ST (T wave) deviation still present Possible ischemia still present Electronically Signed On 01-12-18 16:49:42 STAFFING ASSOCIATE by Spencer Hooks
--- NOTE | 2018-01-12 16:51 | EKG ---
Test Date: 2018-01-12 Test Time: 09:55:55 Bpm Architect: CAMILLE MEASUREMENT RESULTS: Intervals: Rate: 76 NM: 154 QRSD: 94 QT: 454 QTc: 510 [place]: P: 60 NM: 154 QRS: 49 T: 113 INTERPRETIVE STATEMENTS: Normal sinus rhythm Right atrial enlargement LVH with secondary repolarization changes Prolonged QT Abnormal ECG Compared to ECG 01/10/2018 21:47:27 Prolonged QT interval now present Sinus tachycardia no longer present Myocardial infarct finding no longer present Electronically Signed On 01-12-18 16:50:25 TABLE OPERATOR by Spencer Hooks
--- NOTE | 2018-01-12 20:39 | P.PN ---
Date of Service: 01/12/18 Order placed for tylenol 650mg [place] suppository at 203
--- NOTE | 2018-01-12 20:54 | PN ---
Date of Progress Note: 01/12/2018 Subjective: The patient seen and examined. Chart reviewed and case discussed with RN and Dr. Coughlin , teleneurologist. The patient did have acute change in her speech this morning with unknown last no rmal status. Code stroke was called. The patient was taken to CAT scan and did not have any acute h emorrhage or identifiable CVA. The patient's stroke scale was about 5. Teleneurology was consulted. His recommendations from Dr. Coughlin was head CTA and neck CTA, which did not show any acute changes . The patient is not a tPA candidate due to being fully anticoagulated due to her cardiac issues. Serg Coughlin did not recommend transfer as the patient is already on aspirin, statin, and anticoagulant. He does recommend MRI and further workup possible lacunar infarct. The patient also may have somet emma related to some opportunistic lesion in her brain related to her HIV. Unfortunately, her CD4 co unt and HIV viral load are unavailable. Review of Systems: Negative except as above. Medications: List reviewed. Physical Examination: Vital Signs: Temperature 101.2, heart rate 81, blood pressure 141/69, respirations 18, O2 90% on monica m air. General: Awake, alert, oriented x3, in some mild distress. Ill-appearing female. CV: S1, S2. Regular rate and rhythm. Peripheral pulses present. Respiratory: Diminished breath sounds at the bases. No wheezing or stridor. Gastrointestinal: Abdomen is soft, nontender, nondistended. Positive bowel sounds. Extremities: No clubbing, cyanosis, or edema. Neuro: Cranial nerves 2 through 12 intact grossly except facial motor nerve. The patient does have some mild asymmetry of the nasolabial fold. Strength is 4/5 in the right lower extremity, 5/5 bilate ral upper extremity and left lower extremity. Speech is dysarthric. Some slight facial asymmetry. Laboratory Data: Sodium 135, potassium 3.6, chloride 105, CO2 20, BUN 18, creatinine 1.4, glucose 85 , calcium 8.4. WBC 13, hemoglobin and hematocrit 8.6 and 26.8, MCV 79.9, MCH 25.6, platelets 288, ne utrophils 80%. Imaging Studies: CT angio head shows no aneurysm or vascular malformation. No significant atheroscl erotic changes seen. No new or branch occlusion identifiable in the area of the right parietal acute cerebrovascular accident. CT scan of the brain without contrast shows no intracranial hemorrhage an d no acute cortical based infarction identifiable. Extensive white matter disease present, but nonsp ecific at this age pattern not clearly different from comparison. The extent of white matter disease could mass nonhemorrhagic infarction. Recommend MRI for further characterization. CT angio neck sh ows minimal atherosclerotic change with no dissection, stenosis, or other significant finding. Chest x-ray shows mid and lower left lung field opacification from infectious or aspiration pneumonia, bas min prominent interstitial pattern. Assessment And Plan: A 52-year-old female with: 1.Transient ischemic attack rule out cerebrovascular accident. The patient has some dysarthria. Im aging studies so far negative. TeleNeuro consulted, Dr. Coughlin contacted. Does not recommend any ac alessandro emergent transfer. Recommends completing workup with MRI with and without contrast, echocardiogr am, possible lacunar infarct. The patient is not a tPA candidate due to unclear timing of onset of h er symptoms as well as the fact that she is on full-dose anticoagulation with Lovenox. We will ebenezer nue aspirin and statin. Neuro consult in a.m. 2.Rcj-DR-tzcwwsggp myocardial infarction. Continue chest pain guidelines. Not a candidate for card iac catheterization due to her elevated creatinine level. Cardiology on board. 3.Coronary artery disease [place] artery and [place] heart with angina. 4.Human immunodeficiency virus, unknown CD4 count. MRI to rule out any sort of opportunistic infect ion in the brain. 5.Essential hypertension. We will allow permissive hypertension due to recent symptoms. 6.History of Pneumocystis pneumonia. 7.Chronic pain syndrome. We will continue pain control. 8.Chronic disease kidney disease, stage II. We will continue to monitor creatinine, likely expect c reatinine to increase due to recent contrast. 9.Normocytic hypochromic anemia, likely anemia of chronic disease. We will monitor hemoglobin and hematocrit and transfuse as needed. 10.Gastrointestinal and deep venous thrombosis prophylaxis addressed. SA/MODL Voice ID: [id number] Report ID: [id number]
[2018-01-12] MEDS: AMITRIPTYLINE 50 MG TAB PO SCH (21:00)
[2018-01-12] MEDS: ATORVASTATIN 40 MG TAB PO SCH (21:00)
[2018-01-12] MEDS: ACETAMINOPHEN 650MG/RECT SUPP PR PRN (21:33)
[2018-01-13] MEDS ORDERED: METHYLPREDNISOLONE 125 MG INJ IV ONE (01:12)
[2018-01-13] MEDS: ACETAMINOPHEN 650MG/RECT SUPP PR PRN (04:42)
[2018-01-13] MEDS: ASPIRIN EC 81 MG TAB PO SCH (06:52)
[2018-01-13] MEDS: GABAPENTIN 100 MG CAP PO SCH ×3 (06:52→20:22)
[2018-01-13] MEDS: NYSTATIN 500,000 UNIT/5 ML UDC PO SCH ×4 (06:52→20:22)
[2018-01-13 06:55] LABS: Albumin 2.3 g/dL (3.4-5.0); Bilirubin Total 0.5 mg/dL (0.2-1.0); Magnesium 2.7 mg/dL (1.8-2.4); Phosphorus 3.6 mg/dL (2.5-4.9); Potassium 3.6 mmol/L (3.5-5.1); Protein, Total 9.4 g/dL (6.4-8.2)
[2018-01-13 07:08] LABS: Absolute Lymphocytes (CBC) 0.5 K/uL (0.7-4.9); Absolute Monocytes 0.4 K/uL (0.1-1.3); Absolute Neutrophil 14.3 K/uL (1.8-8.0); Basophils % 0.1 % (0-1.3); Hematocrit 24.9 % (36.0-45.0); Lymphocytes % 3.3 % (15.3-44.8); MCH 25.4 pg (27.0-35.0); MCV 80.6 fL (80-100); MPV 8.8 fL (7.6-11.3); Monocytes % 2.6 % (3.3-12.3); RBC Red Blood Cell Count 3.09 M/uL (3.86-4.86)
[2018-01-13] MEDS: CLOPIDOGREL 75 MG TABLET PO SCH (09:00)
[2018-01-13] MEDS ORDERED: REGADENOSON 0.4 MG/5 ML SYR IV ONE (09:22)
--- NOTE | 2018-01-13 10:36 | RAD REPORT ---
EXAM DESCRIPTION: MRI - Brain W/Wo Cont - 01/13/2018 8:56 am CLINICAL HISTORY: CVA COMPARISON: Head angio dated 01/12/2018; Neck Angio dated 01/12/2018; Ct Stroke Brain Wo Cont dated TECHNIQUE: Multi-sequence, multiplanar MR imaging of the brain was performed with contrast. FINDINGS: No intracranial hemorrhage, hydrocephalus, or extra-axial fluid collection.Moderate conflu ent T2/FLAIR hyperintensity in the periventricular and deep white matter is present compatible with c hronic microvascular ischemic changes. No edema or shift of midline structures. No intracranial mass. DWI is negative for acute CVA. The midline structures are normally formed. Mild mucoperiosteal thickening is seen in the right sphen oid sinus. Both mastoid air cells show mild fluid. Nasal airway soft tissue prominence is present. Post-contrast images show no abnormal enhancement to suggest tumor or infection. IMPRESSION: Negative for acute CVA or other acute intracranial abnormality. Prominent T2/FLAIR hyperintensity in the periventricular and deep white matter likely chronic microva scular ischemic changes.
[2018-01-13 12:26] LABS: Hematocrit 25.4 % (36.0-45.0)
--- NOTE | 2018-01-13 15:31 | ECHO ---
HEIGHT: 5 ft 3 in WEIGHT: 141 lb 12.8 oz DATE OF STUDY: 01/13/[address]: 2-DIMENSIONAL: YES M.MODE: YES DOPPLER: YES COLOR FLOW: YES TDS: NO PORTABLE: NO DEFINITY: NO BUBBLE STUDY: NO DIAGNOSIS: CHEST PAIN CARDIAC HISTORY: CATHERIZATION: NO SURGERY: NO PROSTHETIC VALVE: NO PACEMAKER: NO MEASUREMENTS (cm) DIASTOLIC (NORMALS) SYSTOLIC (NORMALS) IVSd 1.4 (0.6-1.2) LA Diam 3.2 (1.9-4.0) LVEF 62% LVIDd 3.6 (3.5-5.7) LVIDs 2.4 (2.0-3.5) %FS 33% LVPWd 1.5 (0.6-1.2) Ao Diam 2.7 (2.0-3.7) 2 DIMENSIONAL ASSESSMENT: RIGHT ATRIUM: NORMAL LEFT ATRIUM: NORMAL RIGHT VENTRICLE: NORMAL LEFT VENTRICLE: LEFT VENTRICULAR HYPERTROPHY TRICUSPID VALVE: NORMAL MITRAL VALVE: NORMAL PULMONIC VALVE: NORMAL AORTIC VALVE: SCLEROSIS PERICARDIAL EFFUSION: NONE AORTIC ROOT: NORMAL LEFT VENTRICULAR WALL MOTION: NORMAL DOPPLER/COLOR FLOW: MILD AORTIC PRESSURE GRADIENT 27/13 ESTIMATED AORTIC VALVE AREA 1.6 CM SQUARED. MILD AORTIC REGURGITATION AND MITRAL REGURGITATION. COMMENTS: NORMAL LEFT VENTRICULAR EJECTION FRACTION. LEFT VENTRICULAR HYPERTROPHY CONCENTRIC. MILD AORTIC STENOSIS. MILD AORTIC REGURGITATION AND MITRAL REGURGITATION. TECHNOLOGIST: MARLENI GONZALES
--- NOTE | 2018-01-13 16:07 | TREADPHA ---
DX: CHEST PAIN Date of Study: 01/13/18 Ht: 5 3 Wt: 141 lb 12.8 oz Consulting Physician: MIKE MEDICATIONS: TYLENOL, XANAX, ASPIRIN, ELAVIL, LIPITOR, PLAVIX HISTORY: 52 YEAR OLD FEMALE WITH COMPLAINTS OF CHEST PAIN. MEDICAL HISTORY OF HIGH CHOLESTEROL, BACK PAIN, ATRIAL FIBRILLATION, CONGESTIVE HEART FAILURE, HIV PHYSICIAL EXAMINATION: RESTING B.P.: 125/75 RESTING H.R.: 81 RESTING EKG: LEFT VENTRICULAR HYPERTROPHY WITH REPOLARIZATION ABNORMALITY. PROTOCOL: LEXISCAN EXERCISE TIME: 3:30 B.P. AT [place] STRESS: 110/66 IMPRESSION: LEXISCAN INJECTED PER PROTOCOL, FOLLOWED BY CARDIOLITE PER PROTOCOL. SEE NUCLEAR MEDICINE REPORT. NO SUPRA VENTRICULAR TACHYCARDIA. NO VENTRICULAR TACHYCARDIA. NO PREMATURE ATRIAL COMPLEXES. NO PREMATURE VENTRICULAR COMPLEXES. PATIENT REPORTED NO CHEST PAIN. NON DIAGNOSTIC EKG WITH LEXISCAN STRESS.
--- NOTE | 2018-01-13 17:38 | RAD REPORT ---
EXAM DESCRIPTION: NM - Rest Stress Cardiac Imaging - 01/13/2018 4:11 pm CLINICAL HISTORY: CP Chest pain. COMPARISON: REST STRESS CARDIAC dated 07/04/2012 TECHNIQUE: The patient was administered approximately 10mCi of Tc 99m Sestamibi prior to resting SPE CT imaging of the heart. The patient was then administered approximately 30 mCi of Tc 99m Sestamibi f ollowing exercise or pharmacologic stress. Multiplanar SPECT images were reviewed. FINDINGS: No stress induced ischemic defect is seen to suggest stress induced ischemia. No fixed def ect is seen to suggest hibernating myocardium or scarred myocardium. The end diastolic volume is 100 ml, the end systolic volume is 42 ml, and the ejection fraction is 57 %. IMPRESSION: No stress induced ischemia.
--- NOTE | 2018-01-13 18:28 | PN ---
Date of Progress Note: 01/13/2018 Subjective: The patient seen and examined. Chart reviewed and case discussed with RN and Dr. Hooks. Patient's brother at the bedside. Treatment plan explained. All questions answered. According to the brother, patient's speech has always been like this due to incident as baby when she swallowed a safety pin affecting her speech, but the pin had been surgically removed at that time. The patient denies any chest pain, is awaiting stress test. Medications: List reviewed. Physical Examination: Vital Signs: Temperature 98.2, heart rate 78, blood pressure 123/71, respirations 22, O2 100% on 1 L nasal cannula. General: Awake, alert, oriented x3, not in any acute distress. CV: S1, S2. No murmurs. Regular rate and rhythm. Peripheral pulses present. Respiratory: Moving air well bilaterally. No wheezing or stridor. Gastrointestinal: Abdomen is soft, nontender, nondistended. Positive bowel sounds. Extremities: No clubbing, cyanosis, or edema. Neuro: The patient has some slight facial asymmetry on the right with decreased nasolabial fold prominence. Speech is dysarthric. Apparently, this is chronic according to the brother. Right lower extremity 4+/5. Left lower extremity and bilateral upper extremities 5/5 strength. Sensation intact to light touch. Laboratory Data: Sodium 139, potassium 3.6, chloride 110, CO2 of 19, BUN 25, creatinine 1.5, glucose 83, calcium 8.5, phosphorus 3.6, magnesium 2.7, albumin 2.3. WBC 15.2, H and H 7.9 and 24.9, platelets 269. Repeat H and H are 8 and 25.4. Blood culture is pending. MRI of the brain shows negative for acute CVA or other acute intracranial abnormality. Prominent T2 FLAIR hyperintensity in the periventricular and deep white matter likely chronic microvascular ischemic changes. No enhancement to suggest tumor or infection. Assessment And Plan: A 52-year-old female with: 1. Transient ischemic attack, cerebrovascular accident, ruled out. MRI brain does not show any acute cerebrovascular accident. Does have microvascular ischemic disease. We will continue with aspirin, Plavix, and statin. 2. Avl-QL-qfefywlnu myocardial infarction. Continue chest pain guidelines. We will have some cardiac stress test done. Dr. Hooks does not recommend catheterization. 3. Coronary artery disease [place] artery and [place] heart with angina, stable. 4. Human immunodeficiency virus. Unknown CD4 count. MRI does not show any infection of the brain. The patient will need to follow up with Infectious Disease as outpatient. The patient does has had a history of Pneumocystis pneumonia. 5. Essential hypertension. We will allow permissive hypertension due to recent transient ischemic attack. 6. Chronic pain syndrome. Continue pain control. 7. Chronic kidney disease, stage 2. Monitor creatinine 1.5, slightly above from yesterday. We will continue to monitor. Avoid NSAIDs. 8. Normocytic and normochromic anemia, likely anemia of chronic disease. H and H dropped slightly today, however, repeat shows some mild improvement. We will check Hemoccult blood. Transfuse as needed. 9. Gastrointestinal and deep venous thrombosis prophylaxis addressed. Followup with cardiac stress test. MERARY Voice ID: [id number] Report ID: [id number] JENNIFER
[2018-01-13] MEDS: ATORVASTATIN 40 MG TAB PO SCH (20:22)
[2018-01-13] MEDS: AMITRIPTYLINE 50 MG TAB PO SCH (20:22)
[2018-01-14] MEDS: ASPIRIN EC 81 MG TAB PO SCH (09:28)
[2018-01-14] MEDS: GABAPENTIN 100 MG CAP PO SCH ×3 (09:28→20:17)
[2018-01-14] MEDS: CLOPIDOGREL 75 MG TABLET PO SCH (09:28)
[2018-01-14] MEDS: NYSTATIN 500,000 UNIT/5 ML UDC PO SCH ×4 (09:28→20:18)
[2018-01-14] MEDS: Levofloxacin 750mg IV 750 MG/150 ML BAG IV SCH (17:14)
[2018-01-14] MEDS: AMITRIPTYLINE 50 MG TAB PO SCH (20:17)
[2018-01-14] MEDS: ATORVASTATIN 40 MG TAB PO SCH (20:17)
--- NOTE | 2018-01-14 21:51 | P.PN ---
Subjective Date of Service: 01/14/18 Chief Complaint: Chest pain rule out acute coronary syndrome Subjective: No new changes, No C/O voiced, Doing well Patient seen and examined at bedside. Brother at bedside, sister on phone. Chart reviewed and case discussed with nursing staff. Patient denies any chest pain at this time. Review of Systems As noted Physical Examination - Vital Signs Temperature: 97.4 F Blood Pressure: 127/75 Pulse: 77 Respirations: 18 Pulse Ox (%): 100 - Physical Exam General: Alert, In no apparent distress, Oriented x3 HEENT: Atraumatic, PERRLA, EOMI Neck: Supple, JVD not distended Respiratory: Clear to auscultation bilaterally, Normal air movement Cardiovascular: Regular rate/rhythm, Normal S1 S2 Gastrointestinal: Normal bowel sounds, No tenderness Musculoskeletal: No tenderness Integumentary: No rashes Neurological: Normal tone, Normal affect, Abnormal speech (though at baseline) Assessment And Plan - Plan : A 52-year-old female with: 1. Transient ischemic attack, cerebrovascular accident, ruled out. MRI brain does not show any acute cerebrovascular accident. Does have microvascular ischemic disease. We will continue with aspirin, Plavix, and statin. 2. Yfr-IS-gjwxxytqf myocardial infarction. Continue chest pain guidelines. cardiac stress test Negative. Dr. Hooks does not recommend catheterization. 3. Coronary artery disease [place] artery and [place] heart with angina, stable. 4. Human immunodeficiency virus. Unknown CD4 count. MRI does not show any infection of the brain. The patient will need to follow up with Infectious Disease as outpatient. The patient does has had a history of Pneumocystis pneumonia. 5. Essential hypertension. We will allow permissive hypertension due to recent transient ischemic attack. 6. Chronic pain syndrome. Continue pain control. 7. Chronic kidney disease, stage 2. Monitor creatinine 1.5, slightly above from yesterday. We will continue to monitor. Avoid NSAIDs. 8. Normocytic and normochromic anemia, likely anemia of chronic disease. H and H dropped slightly today, however, repeat shows some mild improvement. We will check Hemoccult blood. Transfuse as needed. 9. Gastrointestinal and deep venous thrombosis prophylaxis addressed. Disposition: Wean off oxygen, likely discharge home in the am. Discharge Plan: Home Plan to discharge in: 24 Hours Physician Review: Patient Assessed, Agree with Above Assessment and Plan Time Spent Managing PTS Care (In Minutes): 35
[2018-01-15 05:29] LABS: Absolute Monocytes 0.5 K/uL (0.1-1.3); Absolute Neutrophil 6.2 K/uL (1.8-8.0); Basophils % 0.2 % (0-1.3); Eosinophils % 0.1 % (0-4.4); Hematocrit 27.9 % (36.0-45.0); Lymphocytes % 13.3 % (15.3-44.8); MCH 25.2 pg (27.0-35.0); MCV 80.9 fL (80-100); MPV 8.9 fL (7.6-11.3); RBC Red Blood Cell Count 3.44 M/uL (3.86-4.86)
[2018-01-15 05:45] LABS: Albumin 2.4 g/dL (3.4-5.0); Bilirubin Total 0.3 mg/dL (0.2-1.0); Potassium 3.8 mmol/L (3.5-5.1); Protein, Total 9.9 g/dL (6.4-8.2)
[2018-01-15] MEDS: NYSTATIN 500,000 UNIT/5 ML UDC PO SCH ×2 (08:32→13:20)
[2018-01-15] MEDS: GABAPENTIN 100 MG CAP PO SCH ×2 (08:32→13:20)
[2018-01-15] MEDS: ASPIRIN EC 81 MG TAB PO SCH (08:32)
[2018-01-15] MEDS: CLOPIDOGREL 75 MG TABLET PO SCH (08:32)
[2018-01-15 12:05] VITALS: TEMP 97.7
[2018-01-15 15:59] VITALS: O2SAT 98
[2018-01-15 16:24] VITALS: BP 138/75
[2018-01-18 04:58] LABS: Beta Globulin 24 HR Urine 19 %; Creatinine 24 Hour Urine 1.36 g/24 h (0.50-2.15); Gamma Globulin, 24hr Urine 37 %; Interpretation: REPORT; Urine Alpha-2-Globulins, 24 Hr 12 %; Urine PEP Abn Protein Band1 REPORT; Urine Protein/Creat Ratio 24Hr 818 mg/g creat (<115); Urine Total Volume 24 Hours 1180 mL
== END 2018-01-15 16:46 | disposition home or self-care (01) | DRG 281 ==
LOC: ER 21:43 → ERHOLD 01-11 02:13 → 4TH 01-11 03:55 → OBSVTOIN 01-12 17:26
PROVIDERS: ADMIT Hospitalist; ATTEND Family Medicine
DX: I21.4 Non-ST elevation (NSTEMI) myocardial infarction (principal); G45.9 Transient cerebral ischemic attack, unspecified; G89.29 Other chronic pain; I25.10 Atherosclerotic heart disease of native coronary artery without angina pectoris; G89.4 Chronic pain syndrome; E11.22 Type 2 diabetes mellitus with diabetic chronic kidney disease; I12.9 Hypertensive chronic kidney disease with stage 1 through stage 4 chronic kidney disease, or unspecified chronic kidney disease; N18.2 Chronic kidney disease, stage 2 (mild); D63.8 Anemia in other chronic diseases classified elsewhere; R29.705 NIHSS score 5; Z21 Asymptomatic human immunodeficiency virus [HIV] infection status
CPT/HCPCS: 36415; 70450; 70496; 70498; 70553; 71045; 78452; 80048; 80053; 80061; 80076; 82962; 83605; 83735; 83880; 84100; 84166; 84484; 85014; 85018; 85025; 85610; 85730; 87040; 92526; 93005; 93017; 93306; 94760; 99285; A9500; A9577; G0378; J1650; J2785; J2930; J7030; Q9967

== ENCOUNTER 2018-01-28 10:11 | Emergency (ER) | payer OTHER ==
--- NOTE | 2018-01-28 10:36 | ER ---
Nurse's Notes [facility] Name: Charito Michael Age: 52 yrs Sex: Female : 1965 Arrival Date: 01/28/2018 Time: 10:17 Bed 12 Private MD: Andrea Alvares Diagnosis: Candidiasis, unspecified-oral Presentation: 01/28 10:21 Presenting complaint: Patient states: pain to both side of mouth, teeth, now sore ch throat, and sometimes pain in L neck and shoulder. I think I need something to help me sleep at night, I just cant sleep. Transition of care: patient was not received from another setting of care. Onset of symptoms was January 27, 2018 at 08:00. Risk Assessment: Do you want to hurt yourself or someone else? Patient reports no desire to harm self or others. Initial Sepsis Screen: Does the patient meet any 2 criteria? No. Patient's initial sepsis screen is negative. Does the patient have a suspected source of infection? No. Patient's initial sepsis screen is negative. Care prior to arrival: None. 10:21 Method Of Arrival: Ambulatory 10:21 Acuity: GIULIANO 5 ch Triage Assessment: 10:23 General: Appears in no apparent distress. comfortable, Behavior is calm, cooperative, ch appropriate for age. Pain: Complains of pain in mouth, left zygomatic area, right zygomatic area and left trapezius. EENT: pt has white plaque in her mouth, very poor dentition. mucous membranes moist. . TECHNICAL TRAINING SPECIALIST: 10:20 LMP N/A - Hysterectomy ch Historical: - Allergies: 10:23 NKA; ch - Home Meds: 10:23 unknown medications, states she takes several [Active]; blood pressure pill, back pain ch pill, other pills [Active]; - PMHx: 10:23 CHF; Chronic pain; COPD; HIV; Hypertension; seasonal allergies; Back pain; ch - PSHx: 10:23 tumor removed from stomach; ch - Immunization history:: Adult Immunizations not immunized. - Social history:: Smoking status: Patient/guardian denies using tobacco, Patient/guardian denies using alcohol, street drugs. - Ebola Screening: : Patient negative for fever greater than or equal to 101.5 degrees Fahrenheit, and additional compatible Ebola Virus Disease symptoms Patient denies exposure to infectious person Patient denies travel to an Ebola-affected area in the 21 days before illness onset No symptoms or risks identified at this time. Screenin:33 Abuse screen: Denies threats or abuse. Denies injuries from another. Nutritional ch screening: No deficits noted. Tuberculosis screening: No symptoms or risk factors identified. Fall Risk None identified. Assessment: 10:33 General: Appears in no apparent distress. comfortable, Behavior is calm, cooperative, ch appropriate for age. Pain: Complains of pain in back and throat and face and left trapezius and right zygomatic area and left zygomatic area and mouth Pain currently is 8 out of 10 on a pain scale. Pain began years ago. pt states she always hurts, worse since yesterday. Neuro: No deficits noted. Cardiovascular: No deficits noted. Heart tones S1 S2 present. Respiratory: Airway is patent Trachea midline Respiratory effort is even, unlabored, Breath sounds are clear bilaterally. GI: No signs and/or symptoms were reported involving the gastrointestinal system. : No signs and/or symptoms were reported regarding the genitourinary system. EENT: Throat is pink pt has white patchy plaque in mouth, pt has very poor dentition, multiple missing/broken teeth. no swelling noted to other aspects of mouth. . Derm: Skin is dry, Skin is normal. Vital Signs: 10:20 BP 148 / 100; Pulse 84; Resp 16; Temp 98.4(O); Pulse Ox 99% on R/A; Weight 63.5 kg; ch Height 5 ft. 3 in. (160.02 cm); Pain 6/10; 10:20 Body Mass Index 24.80 (63.50 kg, 160.02 cm) ED Course: 10:17 Patient arrived in ED. mr 10:17 Andrea Alvares MD is Private Physician. mr 10:22 Triage completed. ch 10:23 Arm band placed on left wrist. Patient placed in an exam room, on a stretcher. ch 10:25 Brown Moreland NP is PHCP. pm1 10:26 Matt Roca MD is Attending Physician. pm1 10:33 No apparent distress. Resting quietly. ch 10:33 Patient has correct armband on for positive identification. ch 10:33 No provider procedures requiring assistance completed. ch 10:34 Kelly Deleon, HALLE is Primary Nurse. iw 10:53 Patient did not have IV access during this emergency room visit. iw Administered Medications: No medications were administered Outcome: 10:35 Discharge ordered by . pm1 10:53 Discharged to home ambulatory. iw 10:53 Condition: good 10:53 Discharge instructions given to patient, Instructed on discharge instructions, follow up and referral plans. medication usage, Demonstrated understanding of instructions, follow-up care, medications, Prescriptions given X 1. 10:54 Patient left the ED. iw Signatures: Aleksandra Gong, HALLE NERI Sandi Rogers Irene, RN RN Brown Moreland, NURSING HOME MANAGER NURSING HOME MANAGER pm1
--- NOTE | 2018-01-28 10:36 | EDPHYS ---
Physician Documentation [facility] Name: Charito Michael Age: 52 yrs Sex: Female : 1965 Arrival Date: 01/28/2018 Time: 10:17 Bed 12 Private MD: Andrea Alvares ED Physician Matt Roca HPI: 01/28 10:33 This 52 yrs old Black Female presents to ER via Ambulatory with complaints of Sore pm1 Throat, Toothache. 10:33 The patient presents with sore throat. The patient describes throat pain as scratchy. pm1 Onset: The symptoms/episode began/occurred today. Severity of symptoms: in the emergency department the symptoms are unchanged. Modifying factors: The symptoms are alleviated by nothing, the symptoms are aggravated by foods, Patient's oral intake status: unaware of sick contact. Associated signs and symptoms:. Associated signs and symptoms: Pertinent negatives chest pain, cough, earache, fever, flu-like symptoms, nausea, shortness of breath, vomiting. The patient has experienced similar episodes in the past, multiple times. The patient has not recently seen a physician. Patient without dental pain. complaining of gum pain to molar area where no teeth are present when she eats hard foods like chips. No dental pain with eating soft foods. 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 - Social history:: Smoking status: Patient/guardian denies using tobacco, Patient/guardian denies using alcohol, street drugs. - Ebola Screening: : Patient negative for fever greater than or equal to 101.5 degrees Fahrenheit, and additional compatible Ebola Virus Disease symptoms Patient denies exposure to infectious person Patient denies travel to an Ebola-affected area in the 21 days before illness onset No symptoms or risks identified at this time. ROS: 10:33 Constitutional: Negative for fever, chills, and weight loss, Eyes: Negative for injury, pm1 pain, redness, and discharge. 10:33 Neck: Negative for injury, pain, and swelling, Cardiovascular: Negative for chest pain, palpitations, and edema, Respiratory: Negative for shortness of breath, cough, wheezing, and pleuritic chest pain, Abdomen/GI: Negative for abdominal pain, nausea, vomiting, diarrhea, and constipation, Back: Negative for injury and pain, : Negative for injury, bleeding, discharge, and swelling, MS/Extremity: Negative for injury and deformity, Skin: Negative for injury, rash, and discoloration, Neuro: Negative for headache, weakness, numbness, tingling, and seizure. 10:33 ENT: Positive for dental pain, sore throat, Negative for rhinorrhea, difficulty swallowing, difficulty handling secretions. Exam: 10:33 Constitutional: This is a well developed, well nourished patient who is awake, alert, pm1 and in no acute distress. Head/Face: Normocephalic, atraumatic. Eyes: Pupils equal round and reactive to light, extra-ocular motions intact. Lids and lashes normal. Conjunctiva and sclera are non-icteric and not injected. Cornea within normal limits. Periorbital areas with no swelling, redness, or edema. 10:33 Neck: Trachea midline, no thyromegaly or masses palpated, and no cervical lymphadenopathy. Supple, full range of motion without nuchal rigidity, or vertebral point tenderness. No Meningismus. Chest/axilla: Normal chest wall appearance and motion. Nontender with no deformity. No lesions are appreciated. Cardiovascular: Regular rate and rhythm with a normal S1 and S2. No gallops, murmurs, or rubs. Normal PMI, no JVD. No pulse deficits. Respiratory: Lungs have equal breath sounds bilaterally, clear to auscultation and percussion. No rales, rhonchi or wheezes noted. No increased work of breathing, no retractions or nasal flaring. Abdomen/GI: Soft, non-tender, with normal bowel sounds. No distension or tympany. No guarding or rebound. No evidence of tenderness throughout. Back: No spinal tenderness. No costovertebral tenderness. Full range of motion. Skin: Warm, dry with normal turgor. Normal color with no rashes, no lesions, and no evidence of cellulitis. MS/ Extremity: Pulses equal, no cyanosis. Neurovascular intact. Full, normal range of motion. 10:33 ENT: External ear(s): are unremarkable, Ear canal(s): are normal, TM's: are normal, Nose: is normal, Mouth: Lips: normal, moist, Oral mucosa: noted to have obvious thrush, Gums: normal with healthy appearance, Tongue: displays thrush, Posterior pharynx: Airway: normal, no evidence of obstruction, patent, Tonsils: are normal in appearance, no enlargement, no erythema, no exudate, no ulcerations, peritonsillar mass, is not appreciated, pooling of secretions, is not appreciated. 10:33 Neuro: Orientation: is normal, Motor: is normal, Sensation: is normal, no obvious gross deficits. Vital Signs: 10:20 BP 148 / 100; Pulse 84; Resp 16; Temp 98.4(O); Pulse Ox 99% on R/A; Weight 63.5 kg; ch Height 5 ft. 3 in. (160.02 cm); Pain 6/10; 10:20 Body Mass Index 24.80 (63.50 kg, 160.02 cm) ch MDM: 10:26 Patient medically screened. pm1 10:33 Data reviewed: vital signs. Data interpreted: Pulse oximetry: on room air is 99 %. pm1 Interpretation: normal. Counseling: I had a detailed discussion with the patient and/or guardian regarding: the historical points, exam findings, and any diagnostic results supporting the discharge/admit diagnosis, the need for outpatient follow up, to return to the emergency department if symptoms worsen or persist or if there are any questions or concerns that arise at home. Administered Medications: No medications were administered Disposition: 01/28/18 10:35 Discharged to Home. Impression: Candidiasis, unspecified - oral. - Condition is Stable. - Discharge Instructions: Thrush, Adult. - Prescriptions for Nystatin 100,000 unit/mL Oral Suspension - take 5 milliliters by ORAL route every 6 hours for 10 days Swish and swallow; 200 milliliter. - Medication Reconciliation Form, Thank You Letter, Antibiotic Education, Prescription Opioid Use form. - Follow up: Emergency Department; When: As needed; Reason: Worsening of condition. Follow up: Private Physician; When: 2 - 3 days; Reason: Recheck today's complaints, Continuance of care, Re-evaluation by your physician. - Problem is new. - Symptoms have improved. Addendum: 02/13/2018 15:27 Co-signature as Attending Physician, Matt Roca MD I agree with the assessment and w a plan of care. Signatures: Aleksandra Gong, RN RN Kelly Martinez RN RN iw Brown Moreland, HEEL SHAPER HEEL SHAPER pm1 Matt Roca MD MD wa Corrections: (The following items were deleted from the chart) 01/28 10:54 10:35 01/28/2018 10:35 Discharged to Home. Impression: Candidiasis, unspecified - oral. iw Condition is Stable. Forms are Medication Reconciliation Form, Thank You Letter, Antibiotic Education, Prescription Opioid Use. Follow up: Emergency Department; When: As needed; Reason: Worsening of condition. Follow up: Private Physician; When: 2 - 3 days; Reason: Recheck today's complaints, Continuance of care, Re-evaluation by your physician. Problem is new. Symptoms have improved. pm1
[2018-01-28 11:10] VITALS: BP 148/100; TEMP 98.4; O2SAT 99
== END 2018-01-28 10:54 | disposition home or self-care (01) ==
LOC: ER 10:11
DX: B37.0 Candidal stomatitis (principal); I10 Essential (primary) hypertension; J44.9 Chronic obstructive pulmonary disease, unspecified; Z21 Asymptomatic human immunodeficiency virus [HIV] infection status
CPT/HCPCS: 99282

== ENCOUNTER 2018-03-13 09:47 | Emergency (ER) | payer OTHER ==
--- NOTE | 2018-03-13 11:43 | RAD REPORT ---
EXAM DESCRIPTION: RAD - Ribs Bilateral W/Chest - 03/13/2018 11:34 am CLINICAL HISTORY: Fall, bilateral rib pain COMPARISON: January 2018 chest film FINDINGS: No displaced rib fractures present and no nondisplaced rib fractures identifiable. Patient has normal variant fusion of the right fourth and fifth ribs posteriorly. No pathologic rib lesion. No pneumothorax, pulmonary contusion or pleural fluid collection. IMPRESSION: Negative bilateral rib series as detailed.
--- NOTE | 2018-03-13 11:45 | RAD REPORT ---
EXAM DESCRIPTION: RAD - Lumbar Spine 3 Views - 03/13/2018 11:34 am CLINICAL HISTORY: Fall, back pain COMPARISON: May 2017 FINDINGS: A three-view lumbar spine examination was performed. Lumbar bodies are normal in height an d alignment. No fracture or acute bony process seen. No significant disc space narrowing identifiable . Patient does have moderate degenerative change in the facet joints L5-S1. More mild degenerative ch roman at L3-4 and L4-5. These findings are not substantially different from the comparison. No pars de fects identified. IMPRESSION: Lower lumbar facet degenerative changes are present not substantially different from com parison. No compression fracture or acute finding. Concerns for disc herniation, central canal abnormality or occult bone process can be addressed with MR imaging.
--- NOTE | 2018-03-13 12:41 | ER ---
Nurse's Notes [facility] Name: Charito Michael Age: 53 yrs Sex: Female : 1965 Arrival Date: 03/13/2018 Time: 09:51 Bed 14 Private MD: None, None Diagnosis: Sprain of ligaments of lumbar spine;Rib Contusion Presentation: 03/13 10:09 Presenting complaint: Patient states: Fall on Saturday, c/o ramya rib pain and painful ph respirations, denies head injury or LOC. Transition of care: patient was not received from another setting of care. Onset of symptoms was March 13, 2018. Risk Assessment: Do you want to hurt yourself or someone else? Patient reports no desire to harm self or others. Initial Sepsis Screen: Does the patient meet any 2 criteria? No. Patient's initial sepsis screen is negative. Does the patient have a suspected source of infection? No. Patient's initial sepsis screen is negative. Care prior to arrival: None. 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 - Social history:: Smoking status: Patient/guardian denies using tobacco. - Ebola Screening: : No symptoms or risks identified at this time. Screenin:05 Abuse screen: Denies threats or abuse. Nutritional screening: No deficits noted. rb1 Tuberculosis screening: No symptoms or risk factors identified. Fall Risk Fall in past 12 months (25 points). No secondary diagnosis (0 pts). No IV (0 pts). Ambulatory Aid- None/Bed Rest/Nurse Assist (0 pts). Gait- Normal/Bed Rest/Wheelchair (0 pts) Mental Status- Oriented to own ability (0 pts). Total Lo Fall Scale indicates Low Risk Score (25-44 pts). Fall prevention measures have been instituted. Side Rails Up X 2 Placed close to Nursing Station 1:1 attendant Assigned to Pt. Frequent Obs/Assesments occuring As available Patient and Family Educated on Fall Prevention Program and strategies. Assessment: 10:05 General: Appears in no apparent distress. comfortable, Behavior is calm, cooperative, rb1 Denies fever, feeling ill. Pain: Complains of pain in back Pain currently is 10 out of 10 on a pain scale. Pain began Chronic pain per pt. report. Neuro: Level of Consciousness is awake, alert, obeys commands, Oriented to person, place, time, situation. Cardiovascular: Capillary refill < 3 seconds is brisk in bilateral fingers. Respiratory: Airway is patent Respiratory effort is even, unlabored, Respiratory pattern is regular, symmetrical. GI: No signs and/or symptoms were reported involving the gastrointestinal system. : No signs and/or symptoms were reported regarding the genitourinary system. Derm: Skin is dry, Skin is normal, Skin temperature is warm. Musculoskeletal: Range of motion: intact in all extremities. 11:05 Reassessment: Pt. is off unit for testing. rb1 11:38 Reassessment: Patient appears in no apparent distress at this time. Patient and/or rb1 family updated on plan of care and expected duration. Pain level reassessed. Patient is alert, oriented x 3, equal unlabored respirations, skin warm/dry/pink. 12:30 Reassessment: Patient appears in no apparent distress at this time. No changes from rb1 previously documented assessment. Vital Signs: 10:10 BP 154 / 90; Pulse 106; Resp 20; Temp 98.7; Pulse Ox 100% on R/A; Weight 54.43 kg; ph Height 5 ft. 3 in. (160.02 cm); Pain 10/10; 11:10 rb1 11:38 BP 151 / 95; Pulse 92; Resp 19; Pulse Ox 99% on R/A; rb1 12:38 BP 135 / 97; Pulse 98; Resp 17; Pulse Ox 98% on R/A; rb1 10:10 Body Mass Index 21.26 (54.43 kg, 160.02 cm) ph 11:10 Pt. is off unit having tests done [facility] ED Course: 09:51 Patient arrived in ED. sb2 09:51 None, None is Private Physician. sb2 10:05 Patient has correct armband on for positive identification. Bed in low position. Call rb1 light in reach. Side rails up X 1. Pulse ox on. NIBP on. 10:08 Gloria Pak, RN is Primary Nurse. [facility] 10:10 Triage completed. 10:12 Patient placed on a stretcher. Arm band placed on Patient placed in an exam room. ph 10:17 Arie Hidalgo PA is PHCP. [facility] 10:17 Alexys Yarbrough MD is Attending Physician. [facility] 11:28 X-ray completed. Patient tolerated procedure well. Patient moved to radiology via sw wheelchair. Patient moved back from radiology. 11:48 RAD In Process Unspecified. EDMS 11:48 RAD In Process Unspecified. EDMS 12:56 No provider procedures requiring assistance completed. Patient did not have IV access [facility] during this emergency room visit. Administered Medications: No medications were administered Outcome: 12:40 Discharge ordered by . [facility] 12:56 Patient left the ED. [facility] 12:56 Discharged to home ambulatory. [facility] 12:56 Condition: stable 12:56 Discharge instructions given to patient, Instructed on discharge instructions, follow up and referral plans. medication usage, Demonstrated understanding of instructions, follow-up care, medications, Prescriptions given X 1. Signatures: Dispatcher [employer] EDMI Arie Hidalgo PA PA Becky Naik, RN RN Belkis Alas Gloria Pak, RN RN rb1 Alice Young sb2 Corrections: (The following items were deleted from the chart) 10:12 10:12 Arm band placed on Patient placed in an exam room, in the treatment room, [facility]
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
[2018-03-13 13:09] VITALS: TEMP 98.7
[2018-03-13 13:11] VITALS: BP 135/97; O2SAT 98
== END 2018-03-13 12:56 | disposition home or self-care (01) ==
LOC: ER 09:47
DX: S33.5XXA Sprain of ligaments of lumbar spine, initial encounter (principal); S20.219A Contusion of unspecified front wall of thorax, initial encounter; W01.0XXA Fall on same level from slipping, tripping and stumbling without subsequent striking against object, initial encounter; J44.9 Chronic obstructive pulmonary disease, unspecified; I10 Essential (primary) hypertension; I50.9 Heart failure, unspecified
CPT/HCPCS: 71111; 72100; 99283

== ENCOUNTER 2018-04-01 12:36 | Emergency (ER) | payer OTHER ==
--- OUTSIDE RECORDS SUMMARY | 2018-04-01 12:38 | XMS REPORT ---
:1965 [facility] Address [address] [place] [address] Care Team Providers Name Role Phone Unavailable Unavailable Unavailable Problems This patient has no known problems. Allergies, Adverse Reactions, Alerts This patient has no known allergies or adverse reactions. Medications This patient has no known medications.
[2018-04-01] MEDS ORDERED: FLUORESCEIN SODIUM 1 MG/WRAP ONE (13:07)
[2018-04-01] MEDS ORDERED: TETRACAINE HCL 0.5% 2ML OPTH ONE (13:07)
--- NOTE | 2018-04-01 13:36 | EDPHYS ---
Physician Documentation [facility] Name: Charito Michael Age: 53 yrs Sex: Female : 1965 Arrival Date: 04/01/2018 Time: 12:38 Bed 12 Private MD: ED Physician Jaylan King HPI: 04/01 13:26 This 53 yrs old Black Female presents to ER via Ambulatory with complaints of Drainage jmm From Eye. 13:26 Onset: The symptoms/episode began/occurred gradually, 5 day(s) ago. Duration: the jmm symptoms are continuous. Associated signs and symptoms:. This is a 53 year old female with a history of CHF, COPD, HIV that presents to the ED with complaints of left eye drainage and pain for the past 5 days. . Historical: - Allergies: 12:47 NKA; hb - Home Meds: 12:47 blood pressure pill, back pain pill, other pills [Active]; unknown medications, states hb she takes several [Active]; - PMHx: 12:47 Back pain; CHF; Chronic pain; COPD; HIV; Hypertension; seasonal allergies; hb - PSHx: 12:47 tumor removed from stomach; back; hb - Immunization history:: Adult Immunizations up to date. - Social history:: Smoking status: Patient/guardian denies using tobacco. - Ebola Screening: : No symptoms or risks identified at this time. ROS: 13:26 Constitutional: Negative for fever, chills, and weight loss, Cardiovascular: Negative jmm for chest pain, palpitations, and edema. 13:26 Eyes: Positive for discharge. 13:26 Respiratory: Positive for cough. 13:26 All other systems are negative. Exam: 13:26 Visual Acuity: I have reviewed the nursing documentation. jmm 13:26 Constitutional: This is a well developed, well nourished patient who is awake, alert, and in no acute distress. 13:26 Neck: Trachea midline, Supple Chest/axilla: Normal chest wall appearance and motion. Cardiovascular: Regular rate and rhythm. No edema appreciated Respiratory: Normal respirations, no respiratory distress appreciated Abdomen/GI: Non distended, soft Back: Normal ROM Skin: General appearance color normal MS/ Extremity: Moves all extremities, no obvious deformities appreciated, no edema noted to the lower extremities Neuro: Awake and alert, normal gait Psych: Behavior is normal, Mood is normal, Patient is cooperative and pleasant 13:26 Eyes: Extraocular movements: intact throughout, Conjunctiva: injected, in the left eye, Corneas: abrasion, that is small, foreign body, is not appreciated, a fluorescein strip employed to appreciate the findings. Vital Signs: 12:46 BP 173 / 100; Pulse 84; Resp 16; Temp 97.9; Pulse Ox 100% on R/A; Pain 7/10; hb Visual Acuity: 13:00 Left Eye Visual acuity 20/70, Normal, Contracted, Reactive To Accomodation; Right Eye ss Visual acuity 20/70, Normal, Contracted, Reactive To Accomodation; Both Eyes Visual acuity 20/70; Without Lenses; MDM: 13:24 Patient medically screened. [facility] 13:26 Data reviewed: vital signs, nurses notes. Counseling: I had a detailed discussion with [facility] the patient and/or guardian regarding: the historical points, exam findings, and any diagnostic results supporting the discharge/admit diagnosis, the need for outpatient follow up, to return to the emergency department if symptoms worsen or persist or if there are any questions or concerns that arise at home. ED course: Patient states she is currently taking her antiretroviral medications as prescribed. Patient is alert and nontoxic in appearance in the ED. Patient is advised to follow up with PCP for reevaluation or to return to the ED if symptoms worsen. Patient understood and agrees with the plan of care. . 04/01 12:51 Order name: Visual Acuity; Complete Time: 13:00 [facility] 04/01 12:51 Order name: Eye Tray; Complete Time: 13:00 [facility] 04/01 12:51 Order name: Fluoresene Opth strip; Complete Time: 13:00 [facility] Administered Medications: 13:30 Drug: Tetracaine Drops 0.5 % 1 drops Route: Ophthalmic; Site: left eye; ss Disposition: 04/01/18 13:35 Discharged to Home. Impression: Injury of conjunctiva and corneal abrasion without foreign body, right eye. - Condition is Stable. - Discharge Instructions: Corneal Abrasion. - Prescriptions for Erythromycin 5 mg/gram (0.5 %) Ophthalmic Ointment - apply 1 centimeter by OPHTHALMIC route 2-3 times daily for 7 days; 1 tube. - Medication Reconciliation Form, Thank You Letter, Antibiotic Education, Prescription Opioid Use form. - Follow up: Private Physician; When: 2 - 3 days; Reason: Recheck today's complaints, Continuance of care, Re-evaluation by your physician. Addendum: 04/03/2018 21:01 Co-signature as Attending Physician, Jaylan King MD. g s Signatures: Arie Hidalgo PA PA jmm Smirch, Shelby, RN RN ss Rukhsana Bone RN RN Jaylan King MD MD Corrections: (The following items were deleted from the chart) 04/01 13:38 13:35 04/01/2018 13:35 Discharged to Home. Impression: Injury of conjunctiva and ss corneal abrasion without foreign body, right eye. Condition is Stable. Forms are Medication Reconciliation Form, Thank You Letter, Antibiotic Education, Prescription Opioid Use. Follow up: Private Physician; When: 2 - 3 days; Reason: Recheck today's complaints, Continuance of care, Re-evaluation by your physician. [email or web address]
--- NOTE | 2018-04-01 13:36 | ER ---
Nurse's Notes [facility] Name: Charito Michael Age: 53 yrs Sex: Female : 1965 Arrival Date: 04/01/2018 Time: 12:38 Bed 12 Private MD: Diagnosis: Injury of conjunctiva and corneal abrasion without foreign body, right eye Presentation: 04/01 12:45 Presenting complaint: Bilateral eye itching, redness, and drainage x 5 days. Transition hb of care: patient was not received from another setting of care. Onset of symptoms was April 01, 2018. Risk Assessment: Do you want to hurt yourself or someone else? Patient reports no desire to harm self or others. Care prior to arrival: None. 12:45 Method Of Arrival: Ambulatory hb 12:45 Acuity: GIULIANO 4 hb 13:37 Initial Sepsis Screen: Does the patient meet any 2 criteria? No. Patient's initial ss sepsis screen is negative. Does the patient have a suspected source of infection? No. Patient's initial sepsis screen is negative. Historical: - Allergies: 12:47 NKA; hb - Home Meds: 12:47 blood pressure pill, back pain pill, other pills [Active]; unknown medications, states hb she takes several [Active]; - PMHx: 12:47 Back pain; CHF; Chronic pain; COPD; HIV; Hypertension; seasonal allergies; hb - PSHx: 12:47 tumor removed from stomach; back; hb - Immunization history:: Adult Immunizations up to date. - Social history:: Smoking status: Patient/guardian denies using tobacco. - Ebola Screening: : No symptoms or risks identified at this time. Screenin:47 Abuse screen: Denies threats or abuse. Denies injuries from another. Nutritional hb screening: No deficits noted. Tuberculosis screening: No symptoms or risk factors identified. Fall Risk None identified. Assessment: 13:01 General: Appears in no apparent distress. comfortable, Behavior is calm, cooperative. ss Pain: Complains of pain in right eye and left eye Pain currently is 7 out of 10 on a pain scale. Quality of pain is described as tender, Is continuous. Neuro: Level of Consciousness is awake, alert, obeys commands. Cardiovascular: Capillary refill < 3 seconds is brisk in bilateral fingers. Respiratory: Respiratory effort is even, unlabored, Respiratory pattern is regular, symmetrical. GI: No signs and/or symptoms were reported involving the gastrointestinal system. EENT: Nares are clear Oral mucosa is moist. Throat is clear. Derm: Skin is intact, is healthy with good turgor, Skin is dry, Skin is pink, warm \T\ dry. normal. Musculoskeletal: Circulation, motion, and sensation intact. Capillary refill < 3 seconds, is brisk, in bilateral fingers. Range of motion: intact in all extremities. Vital Signs: 12:46 BP 173 / 100; Pulse 84; Resp 16; Temp 97.9; Pulse Ox 100% on R/A; Pain 7/10; hb Visual Acuity: 13:00 Left Eye Visual acuity 20/70, Normal, Contracted, Reactive To Accomodation; Right Eye ss Visual acuity 20/70, Normal, Contracted, Reactive To Accomodation; Both Eyes Visual acuity 20/70; Without Lenses; ED Course: 12:38 Patient arrived in ED. as 12:46 Triage completed. hb 12:46 Arm band placed on right wrist. 12:49 Arie Hidalgo PA is PHCP. [facility] 12:49 Jaylan King MD is Attending Physician. [facility] 13:00 Patient has correct armband on for positive identification. Bed in low position. Call ss light in reach. 13:16 Ashlee Gagnon, HALLE is Primary Nurse. 13:37 No provider procedures requiring assistance completed. Patient did not have IV access ss during this emergency room visit. Administered Medications: 13:30 Drug: Tetracaine Drops 0.5 % 1 drops Route: Ophthalmic; Site: left eye; Outcome: 13:35 Discharge ordered by . [facility] 13:37 Discharged to home ambulatory. ss 13:37 Condition: good 13:37 Discharge instructions given to patient, Instructed on discharge instructions, follow up and referral plans. medication usage, Demonstrated understanding of instructions, follow-up care, medications, Prescriptions given X 1. 13:38 Patient left the ED. ss Signatures: Arie Hidalgo PA PA jmm Martinez, Amelia as Smirch, Shelby, HALLE RN Rukhsana Bone RN RN
[2018-04-01 14:00] VITALS: BP 173/100; TEMP 97.9; O2SAT 100
== END 2018-04-01 13:38 | disposition home or self-care (01) ==
LOC: ER 12:36
DX: S05.01XA Injury of conjunctiva and corneal abrasion without foreign body, right eye, initial encounter (principal); I11.0 Hypertensive heart disease with heart failure; I50.9 Heart failure, unspecified; J44.9 Chronic obstructive pulmonary disease, unspecified
CPT/HCPCS: 99283

== ENCOUNTER 2018-04-19 14:39 | Emergency (ER) | payer OTHER ==
--- OUTSIDE RECORDS SUMMARY | 2018-04-19 14:42 | XMS REPORT ---
:1965 [facility] [address] [place] [address] Care Team Providers Name Role Phone Unavailable Unavailable Unavailable Problems This patient has no known problems. Allergies, Adverse Reactions, Alerts This patient has no known allergies or adverse reactions. Medications This patient has no known medications.
--- NOTE | 2018-04-19 16:30 | ER ---
Nurse's Notes [facility] Name: Charito Michael Age: 53 yrs Sex: Female : 1965 Arrival Date: 04/19/2018 Time: 14:40 Bed Waiting Private MD: Diagnosis: Presentation: 04/19 15:16 Presenting complaint: Patient states: L FOOT PAIN, i fell and i think i hurt it. I was ch getting out of my bed and did not have my cane. Transition of care: patient was not received from another setting of care. Onset of symptoms was April 18, 2018. Risk Assessment: Do you want to hurt yourself or someone else? Patient reports no desire to harm self or others. Initial Sepsis Screen: Does the patient meet any 2 criteria? No. Patient's initial sepsis screen is negative. Does the patient have a suspected source of infection? No. Patient's initial sepsis screen is negative. Care prior to arrival: None. 15:16 Method Of Arrival: Ambulatory 15:16 Acuity: GIULIANO 4 Triage Assessment: 15:17 General: Appears in no apparent distress. uncomfortable, Behavior is calm, cooperative, ch appropriate for age. Pain: Complains of pain in left foot Pain currently is 6 out of 10 on a pain scale. 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 - Social history:: Smoking status: Patient/guardian denies using tobacco, Patient/guardian denies using alcohol, street drugs. - Ebola Screening: : Patient negative for fever greater than or equal to 101.5 degrees Fahrenheit, and additional compatible Ebola Virus Disease symptoms Patient denies exposure to infectious person Patient denies travel to an Ebola-affected area in the 21 days before illness onset No symptoms or risks identified at this time. Assessment: 16:28 Reassessment: pt told registration staff that she needed to catch the bus. ss Vital Signs: 15:17 BP 157 / 105; Pulse 80; Resp 14; Temp 98.2; Pulse Ox 100% on R/A; Weight 68.04 kg; ch Height 5 ft. 3 in. (160.02 cm); Pain 6/10; 15:17 Body Mass Index 26.57 (68.04 kg, 160.02 cm) ED Course: 14:40 Patient arrived in ED. as 15:17 Triage completed. 15:17 Arm band placed on left wrist. Patient placed in waiting room. 16:20 Erin [facility]astelum [facility]-C [facility]. kb 16:20 Chi Sanchez MD is Attending Physician. kb 16:29 No provider procedures requiring assistance completed. Patient did not have IV access ss during this emergency room visit. Administered Medications: No medications were administered Outcome: 16:29 Eloped from waiting room, before seeing physician ss 16:30 Patient left the ED. ss Signatures: Erin Gastleum FNP-C FNP-Ckb Hammond, Christina, RN RN Isabel Abraham Shelby, HALLE RN
[2018-04-19 16:38] VITALS: BP 157/105; TEMP 98.2; O2SAT 100
== END 2018-04-19 16:30 | disposition left against medical advice (07) ==
LOC: ER 14:39
DX: Z53.21 Procedure and treatment not carried out due to patient leaving prior to being seen by health care provider (principal); I10 Essential (primary) hypertension; Z21 Asymptomatic human immunodeficiency virus [HIV] infection status
CPT/HCPCS: 99281

== ENCOUNTER 2018-04-28 11:09 | Emergency (ER) | payer OTHER ==
--- OUTSIDE RECORDS SUMMARY | 2018-04-28 11:10 | XMS REPORT ---
:1965 [facility] Address [address] [place] [address] Care Team Providers Name Role Phone Unavailable Unavailable Unavailable Problems This patient has no known problems. Allergies, Adverse Reactions, Alerts This patient has no known allergies or adverse reactions. Medications This patient has no known medications.
--- NOTE | 2018-04-28 12:46 | EDPHYS ---
Physician Documentation [facility] Name: Charito Michael Age: 53 yrs Sex: Female : 1965 Arrival Date: 04/28/2018 Time: 11:12 Bed 12 Private MD: ED Physician Cyndee Ballard HPI: 04/28 12:42 This 53 yrs old Black Female presents to ER via Ambulatory with complaints of Back ma2 Pain, Leg Pain, Sore Throat. 12:42 The patient presents with pain that is chronic. Onset: The symptoms/episode ma2 began/occurred gradually, 2 day(s) ago. Associated signs and symptoms: Pertinent negatives: abdominal pain, chest pain, constipation, dysuria, fever, headache, hematuria, incontinence, nausea, numbness, tingling, urinary retention, vomiting, weakness. Severity of symptoms: At their worst the symptoms were moderate, in the emergency department the symptoms are unchanged. sore throat x 2 days constant . 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 - Social history:: Smoking status: Patient/guardian denies using tobacco, Patient uses Patient/guardian denies using alcohol, street drugs, The patient lives with family. - Ebola Screening: : No symptoms or risks identified at this time. - Family history:: not pertinent. ROS: 12:42 Constitutional: Negative for fever, chills, and weight loss. ma2 12:42 ENT: Positive for nasal discharge, rhinorrhea, sore throat, Negative for drainage from ear(s), Gum pain 12:42 Cardiovascular: Negative for chest pain, edema, orthopnea, palpitations, paroxysmal nocturnal dyspnea, acute changes. 12:42 All other systems are negative. Exam: 12:42 Constitutional: This is a well developed, well nourished patient who is awake, alert, ma2 and in no acute distress. 12:42 Head/Face: Normocephalic, atraumatic. Eyes: Pupils equal round and reactive to light, extra-ocular motions intact. Lids and lashes normal. Conjunctiva and sclera are non-icteric and not injected. Cornea within normal limits. Periorbital areas with no swelling, redness, or edema. Chest/axilla: Normal chest wall appearance and motion. Nontender with no deformity. No lesions are appreciated. Cardiovascular: Regular rate and rhythm with a normal S1 and S2. No gallops, murmurs, or rubs. Normal PMI, no JVD. No pulse deficits. Respiratory: Lungs have equal breath sounds bilaterally, clear to auscultation and percussion. No rales, rhonchi or wheezes noted. No increased work of breathing, no retractions or nasal flaring. Abdomen/GI: Soft, non-tender, with normal bowel sounds. No distension or tympany. No guarding or rebound. No evidence of tenderness throughout. Back: No spinal tenderness. No costovertebral tenderness. Full range of motion. Skin: Warm, dry with normal turgor. Normal color with no rashes, no lesions, and no evidence of cellulitis. MS/ Extremity: Pulses equal, no cyanosis. Neurovascular intact. Full, normal range of motion. Neuro: Awake and alert, GCS 15, oriented to person, place, time, and situation. Cranial nerves II-XII grossly intact. Motor strength 5/5 in all extremities. Sensory grossly intact. Cerebellar exam normal. Normal gait. 12:42 ENT: Posterior pharynx: Airway: normal, Tonsils: bilaterally enlarged, with erythema, no exudate, no ulcerations, Uvula: normal, swelling, is not appreciated, peritonsillar mass, is not appreciated, pooling of secretions, is not appreciated. Vital Signs: 11:25 BP 154 / 94; Pulse 88; Resp 16; Temp 97.9; Pulse Ox 100% on R/A; Pain 5/10; hb MDM: 12:13 Patient medically screened. ma2 12:42 Differential diagnosis: Fatigue sprain, tonsellitits. Data reviewed: vital signs, ma2 nurses notes. Counseling: I had a detailed discussion with the patient and/or guardian regarding: the historical points, exam findings, and any diagnostic results supporting the discharge/admit diagnosis, the presence of at least one elevated blood pressure reading (>120/80) during this emergency department visit, the need for outpatient follow up. Administered Medications: No medications were administered Disposition: 04/28/18 12:45 Discharged to Home. Impression: Acute tonsillitis. - Condition is Stable. - Discharge Instructions: Acute Bronchitis, Adult. - Prescriptions for Augmentin 500- 125 mg Oral Tablet - take 1 tablet by ORAL route every 8 hours for 10 days; 30 tablet. Tramadol 50 mg Oral Tablet - take 1 tablet by ORAL route every 8 hours as needed; 12 tablet. - Medication Reconciliation Form, Thank You Letter, Antibiotic Education, Prescription Opioid Use form. - Follow up: Private Physician; When: Tomorrow; Reason: Continuance of care. Signatures: Kelly Deleon RN RN Rukhsana Olson RN RN Cyndee Madera MD MD ma2 Corrections: (The following items were deleted from the chart) 13:02 12:45 04/28/2018 12:45 Discharged to Home. Impression: Acute tonsillitis. Condition is iw Stable. Forms are Medication Reconciliation Form, Thank You Letter, Antibiotic Education, Prescription Opioid Use. Follow up: Private Physician; When: Tomorrow; Reason: Continuance of care. ma2
--- NOTE | 2018-04-28 12:46 | ER ---
Nurse's Notes [facility] Name: Chariot Michael Age: 53 yrs Sex: Female : 1965 Arrival Date: 04/28/2018 Time: 11:12 Bed 12 Private MD: Diagnosis: Acute tonsillitis Presentation: 04/28 11:23 Presenting complaint: Patient states: "My left knee and back gave out, my throat and hb all my teeth hurt.". Transition of care: patient was not received from another setting of care. Onset of symptoms was April 28, 2018. Risk Assessment: Do you want to hurt yourself or someone else? Patient reports no desire to harm self or others. Care prior to arrival: None. 11:23 Method Of Arrival: Ambulatory hb 11:23 Acuity: GIULIANO 4 hb 12:30 Initial Sepsis Screen: Does the patient meet any 2 criteria? No. Patient's initial iw sepsis screen is negative. Does the patient have a suspected source of infection? No. Patient's initial sepsis screen is negative. Triage Assessment: 13:00 General: Appears in no apparent distress. Behavior is calm, cooperative. iw Musculoskeletal: Range of motion: intact in all extremities. 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 - Social history:: Smoking status: Patient/guardian denies using tobacco, Patient uses Patient/guardian denies using alcohol, street drugs, The patient lives with family. - Ebola Screening: : No symptoms or risks identified at this time. - Family history:: not pertinent. Screenin:00 Abuse screen: Denies threats or abuse. Denies injuries from another. Nutritional iw screening: No deficits noted. Tuberculosis screening: No symptoms or risk factors identified. Fall Risk None identified. Assessment: 12:30 General: Appears in no apparent distress. Behavior is calm. Pain: Denies pain. Neuro: iw Level of Consciousness is awake, alert, obeys commands, Moves all extremities. Cardiovascular: Patient's skin is warm and dry. Respiratory: Respiratory effort is even, unlabored, Respiratory pattern is regular. GI: No signs and/or symptoms were reported involving the gastrointestinal system. Derm: Skin is intact, is healthy with good turgor. Musculoskeletal: Range of motion: intact in all extremities. Vital Signs: 11:25 BP 154 / 94; Pulse 88; Resp 16; Temp 97.9; Pulse Ox 100% on R/A; Pain 5/10; hb ED Course: 11:12 Patient arrived in ED. as 11:25 Triage completed. hb 11:26 Arm band placed on right wrist. hb 12:13 Cyndee Ballard MD is Attending Physician. ma2 12:30 Patient has correct armband on for positive identification. iw 13:00 No provider procedures requiring assistance completed. Patient did not have IV access iw during this emergency room visit. 13:02 Kelly Deleon, RN is Primary Nurse. iw Administered Medications: No medications were administered Outcome: 12:45 Discharge ordered by . ma2 13:00 Discharged to home ambulatory. iw 13:00 Condition: good 13:00 Discharge instructions given to patient, Instructed on discharge instructions, follow up and referral plans. medication usage, Demonstrated understanding of instructions, follow-up care, medications, Prescriptions given X 2. 13:02 Patient left the ED. iw Signatures: Isabel Abraham Irene, RN HALLE Rukhsana Bone, HALLE NERI Cyndee Ballard MD MD wyRose
[2018-04-28 13:08] VITALS: BP 154/94; TEMP 97.9; O2SAT 100
== END 2018-04-28 13:02 | disposition home or self-care (01) ==
LOC: ER 11:09
DX: J03.90 Acute tonsillitis, unspecified (principal); I10 Essential (primary) hypertension; Z21 Asymptomatic human immunodeficiency virus [HIV] infection status
CPT/HCPCS: 99282

== ENCOUNTER 2018-05-27 10:25 | Emergency (ER) | payer OTHER ==
--- OUTSIDE RECORDS SUMMARY | 2018-05-27 10:26 | XMS REPORT ---
:1965 [facility] Address [address] [place] [address] Care Team Providers Name Role Phone Unavailable Unavailable Unavailable Problems This patient has no known problems. Allergies, Adverse Reactions, Alerts This patient has no known allergies or adverse reactions. Medications This patient has no known medications.
[2018-05-27 12:33] LABS: Urine Bacteria <20 /HPF (<20); Urine Culture Reflex Order NOT NEEDED; Urine RBC NONE SEEN /HPF (NONE SEEN)
[2018-05-27 12:46] LABS: Urine Blood NEGATIVE (NEG); Urine Glucose NEGATIVE (NEG); Urine Protein 1+ (NEG)
--- NOTE | 2018-05-27 12:58 | ER ---
Nurse's Notes [facility] Name: Charito Michael Age: 53 yrs Sex: Female : 1965 Arrival Date: 05/27/2018 Time: 10:25 Bed 26 Private MD: Diagnosis: Acute pharyngitis;Monoarthritis, not elsewhere classified, left knee Presentation: 05/27 10:29 Presenting complaint: Patient states: my tonsils and both ears hurts and it started the hj other day, now my lower back hurts since yesterday and it so when i pee, and i think my L knee is hurting from gout; reports fever;. Transition of care: patient was not received from another setting of care. Onset of symptoms was May 27, 2018. Risk Assessment: Do you want to hurt yourself or someone else? Patient reports no desire to harm self or others. Initial Sepsis Screen: Does the patient meet any 2 criteria? No. Patient's initial sepsis screen is negative. Does the patient have a suspected source of infection? No. Patient's initial sepsis screen is negative. Care prior to arrival: None. 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 - Social history:: Smoking status: Patient/guardian denies using tobacco, Patient/guardian denies using alcohol. - Ebola Screening: : Patient negative for fever greater than or equal to 101.5 degrees Fahrenheit, and additional compatible Ebola Virus Disease symptoms Patient denies exposure to infectious person Patient denies travel to an Ebola-affected area in the 21 days before illness onset. Screenin:15 Abuse screen: Denies threats or abuse. Denies injuries from another. Nutritional aj1 screening: No deficits noted. Tuberculosis screening: No symptoms or risk factors identified. 13:02 Fall Risk None identified. aj1 Assessment: 10:32 Neuro: Level of Consciousness is awake, alert, obeys commands, Oriented to person, hj place, time, situation, Appropriate for age. 11:15 General: Appears in no apparent distress. comfortable, Behavior is calm, cooperative, aj1 appropriate for age. Pain: Complains of pain in right ear, left ear, low back area, left aspect of posterior pharynx and right aspect of posterior pharynx Pain does not radiate. Pain currently is 5 out of 10 on a pain scale. Neuro: Level of Consciousness is awake, alert, obeys commands, Oriented to person, place, time, situation. Cardiovascular: Patient's skin is warm and dry. Respiratory: Airway is patent Respiratory effort is even, unlabored, Respiratory pattern is regular, symmetrical. GI: No signs and/or symptoms were reported involving the gastrointestinal system. : No signs and/or symptoms were reported regarding the genitourinary system. EENT: Reports sore throat, ear pain. Derm: No signs and/or symptoms reported regarding the dermatologic system. Skin is pink, warm \T\ dry. normal. Musculoskeletal: No signs and/or symptoms reported regarding the musculoskeletal system. Circulation, motion, and sensation intact. 11:30 Reassessment: Patient appears in no apparent distress at this time. No changes from aj1 previously documented assessment. Patient and/or family updated on plan of care and expected duration. Pain level reassessed. Patient is alert, oriented x 3, equal unlabored respirations, skin warm/dry/pink. 12:28 Reassessment: Patient appears in no apparent distress at this time. No changes from aj1 previously documented assessment. Patient and/or family updated on plan of care and expected duration. Pain level reassessed. Patient is alert, oriented x 3, equal unlabored respirations, skin warm/dry/pink. Vital Signs: 10:32 BP 120 / 75; Pulse 98; Resp 18; Temp 97.6(TE); Pulse Ox 99% on R/A; Weight 68.04 kg; hj Height 5 ft. 3 in. (160.02 cm); Pain 5/10; 13:02 BP 127 / 85; Pulse 92; Resp 18; Pulse Ox 100% on R/A; aj1 10:32 Body Mass Index 26.57 (68.04 kg, 160.02 cm) ED Course: 10:25 Patient arrived in ED. as 10:31 Triage completed. hj 10:32 Arm band placed on left wrist. hj 10:48 Mavis Neil, RN is Primary Nurse. aj1 10:56 Jaylan King MD is Attending Physician. 11:15 Patient has correct armband on for positive identification. aj1 11:15 No provider procedures requiring assistance completed. aj1 13:02 Patient did not have IV access during this emergency room visit. aj1 Administered Medications: No medications were administered Outcome: 12:57 Discharge ordered by MD. 13:02 Discharged to home ambulatory. aj1 13:02 Condition: good 13:02 Discharge instructions given to patient, Instructed on discharge instructions, follow up and referral plans. Demonstrated understanding of instructions, follow-up care. 13:02 Patient left the ED. aj1 Signatures: Mavis Neil RN RN aj1 Isabel Abraham Henry, RN RN Jaylan King MD MD Corrections: (The following items were deleted from the chart) 10:31 10:29 Presenting complaint: Patient states: my tonsils and both ears hurts and it hj started the other day, now my lower back hurts since yesterday and i think my L knee is hurting from gout; reports fever; hj 10:33 10:32 Pulse 98bpm; Resp 18bpm; Pulse Ox 99% RA; Temp 97.6F Temporal; 68.04 kg; Height 5 hj ft. 3 in.; BMI: 26.5; Pain 5/10; hj
--- NOTE | 2018-05-27 12:59 | EDPHYS ---
Physician Documentation [facility] Name: Charito Michael Age: 53 yrs Sex: Female : 1965 Arrival Date: 05/27/2018 Time: 10:25 Bed 26 Private MD: ED Physician Jaylan King HPI: 05/27 12:47 This 53 yrs old Black Female presents to ER via Ambulatory with complaints of COUGH gs SORE THROAT LEFT KNEE PAIN. 12:47 Onset: The symptoms/episode began/occurred 2 day(s) ago. Modifying factors: The gs symptoms are alleviated by nothing. the symptoms are aggravated by nothing. Associated signs and symptoms: Pertinent positives: sore throat, Pertinent negatives: fever. Severity of symptoms: At their worst the symptoms were moderate in the emergency department the symptoms are unchanged. The patient has experienced similar episodes in the past, a few times. ALSO STATE LEFT KNEE HURTS SHE THINKS ITS HER GOUT. 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 - Social history:: Smoking status: Patient/guardian denies using tobacco, Patient/guardian denies using alcohol. - Ebola Screening: : Patient negative for fever greater than or equal to 101.5 degrees Fahrenheit, and additional compatible Ebola Virus Disease symptoms Patient denies exposure to infectious person Patient denies travel to an Ebola-affected area in the 21 days before illness onset. ROS: 12:47 All other systems are negative. gs Exam: 12:47 Head/Face: Normocephalic, atraumatic. Eyes: Pupils equal round and reactive to light, gs extra-ocular motions intact. Lids and lashes normal. Conjunctiva and sclera are non-icteric and not injected. Cornea within normal limits. Periorbital areas with no swelling, redness, or edema. Neck: Trachea midline, no thyromegaly or masses palpated, and no cervical lymphadenopathy. Supple, full range of motion without nuchal rigidity, or vertebral point tenderness. No Meningismus. Chest/axilla: Normal chest wall appearance and motion. Nontender with no deformity. No lesions are appreciated. Cardiovascular: Regular rate and rhythm with a normal S1 and S2. No gallops, murmurs, or rubs. Normal PMI, no JVD. No pulse deficits. Respiratory: Lungs have equal breath sounds bilaterally, clear to auscultation and percussion. No rales, rhonchi or wheezes noted. No increased work of breathing, no retractions or nasal flaring. Abdomen/GI: Soft, non-tender, with normal bowel sounds. No distension or tympany. No guarding or rebound. No evidence of tenderness throughout. Back: No spinal tenderness. No costovertebral tenderness. Full range of motion. 12:47 Constitutional: The patient appears alert, awake. 12:47 ENT: TM's: are normal, Posterior pharynx: erythema, that is mild. 12:47 Musculoskeletal/extremity: Circulation is intact in all extremities. Joints: painful range of motion, NO SWELLING. Vital Signs: 10:32 BP 120 / 75; Pulse 98; Resp 18; Temp 97.6(TE); Pulse Ox 99% on R/A; Weight 68.04 kg; Height 5 ft. 3 in. (160.02 cm); Pain 5/10; 13:02 BP 127 / 85; Pulse 92; Resp 18; Pulse Ox 100% on R/A; aj1 10:32 Body Mass Index 26.57 (68.04 kg, 160.02 cm) MDM: 11:13 Patient medically screened. 12:47 Data reviewed: vital signs, nurses notes. Counseling: I had a detailed discussion with the patient and/or guardian regarding: the historical points, exam findings, and any diagnostic results supporting the discharge/admit diagnosis, the need for outpatient follow up. Response to treatment: the patient's symptoms have mildly improved after treatment. 05/27 11:13 Order name: Urine Microscopic Only; Complete Time: 12:46 05/27 11:13 Order name: Strep 05/27 11:13 Order name: Urine Dipstick-Ancillary (obtain specimen); Complete Time: 12:09 05/27 12:40 Order name: Urine Dipstick--Ancillary (enter results) 05/27 13:02 Order name: Throat Culture EDMS Administered Medications: No medications were administered Disposition: 05/27/18 12:57 Discharged to Home. Impression: Acute pharyngitis, Monoarthritis, not elsewhere classified, left knee. - Condition is Stable. - Discharge Instructions: Pharyngitis, [id number], Arthritis, [id number]. - Medication Reconciliation Form, Thank You Letter, Antibiotic Education, Prescription Opioid Use form. - Follow up: Private Physician; When: 2 - 3 days; Reason: Re-evaluation by your physician. Signatures: Dispatcher [employer] EDMavis Harman RN RN aj1 Virgil Holland RN RN Jaylan King MD MD gs Corrections: (The following items were deleted from the chart) 13:02 12:57 05/27/2018 12:57 Discharged to Home. Impression: Acute pharyngitis; aj1 Monoarthritis, not elsewhere classified, left knee. Condition is Stable. Forms are Medication Reconciliation Form, Thank You Letter, Antibiotic Education, Prescription Opioid Use. Follow up: Private Physician; When: 2 - 3 days; Reason: Re-evaluation by your physician. gs
[2018-05-27 13:15] VITALS: TEMP 97.6
[2018-05-27 13:17] VITALS: BP 127/85; O2SAT 100
== END 2018-05-27 13:02 | disposition home or self-care (01) ==
LOC: ER 10:25
DX: M13.162 Monoarthritis, not elsewhere classified, left knee (principal); I10 Essential (primary) hypertension; Z21 Asymptomatic human immunodeficiency virus [HIV] infection status
CPT/HCPCS: 81003; 81015; 87070; 87081; 99281

== ENCOUNTER 2018-06-28 14:21 | Emergency (ER) | payer OTHER ==
--- OUTSIDE RECORDS SUMMARY | 2018-06-28 14:24 | XMS REPORT ---
:1965 [facility] Address [address] [place] [address] Dr. Bay [address] [place] [id number] Care Team Providers Name Role Phone Unavailable Unavailable Unavailable Problems This patient has no known problems. Allergies, Adverse Reactions, Alerts This patient has no known allergies or adverse reactions. Medications This patient has no known medications.
--- NOTE | 2018-06-28 14:48 | EDPHYS ---
Physician Documentation [facility] Name: Charito Michael Age: 53 yrs Sex: Female : 1965 Arrival Date: 06/28/2018 Time: 14:25 Bed 11 Private MD: ED Physician Jaylan King HPI: 06/28 14:43 This 53 yrs old Black Female presents to ER via Ambulatory with complaints of Eye jmm Problem. 14:43 The patient is experiencing swelling. Onset: The symptoms/episode began/occurred jmm gradually, 1 day(s) ago. 14:43 Duration: the symptoms are continuous. jmm 14:43 Aggravated by nothing. Alleviated by nothing. This is a 53 year old female with a [facility] history of CHF, HIV, chronic pain, HTN that presents to the ED with complaints of right eyelid swelling and irritation beginning last night. Patient denies pain but states the area is itchy. Patient states having a normal CD4 count on most recent lab. Patient denies fever or chills. . 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 - Social history:: Smoking status: Patient/guardian denies using tobacco. - Ebola Screening: : Patient negative for fever greater than or equal to 101.5 degrees Fahrenheit, and additional compatible Ebola Virus Disease symptoms Patient denies exposure to infectious person Patient denies travel to an Ebola-affected area in the 21 days before illness onset No symptoms or risks identified at this time. ROS: 14:43 Constitutional: Negative for fever, chills, and weight loss. jmm 14:43 Cardiovascular: Negative for chest pain, palpitations, and edema, Respiratory: Negative for shortness of breath, cough, wheezing, and pleuritic chest pain. 14:43 Eyes: Positive for itching. 14:43 All other systems are negative. Exam: 14:43 Constitutional: This is a well developed, well nourished patient who is awake, alert, jmm and in no acute distress. Head/Face: atraumatic. 14:43 ENT: Moist Mucus Membranes Neck: Trachea midline, Supple Chest/axilla: Normal chest wall appearance and motion. Cardiovascular: Regular rate and rhythm. No edema appreciated Respiratory: Normal respirations, no respiratory distress appreciated Abdomen/GI: Non distended, soft Back: Normal ROM Skin: General appearance color normal MS/ Extremity: Moves all extremities, no obvious deformities appreciated, no edema noted to the lower extremities Neuro: Awake and alert, normal gait Psych: Behavior is normal, Mood is normal, Patient is cooperative and pleasant 14:43 Eyes: Extraocular movements: no pain, Lids and lashes: edema, erythema, on the right. Vital Signs: 14:31 BP 148 / 92; Pulse 88; Resp 18; Temp 97.2; Pulse Ox 96% on R/A; Pain 3/10; sg MDM: 14:43 Patient medically screened. [facility] 14:43 ED course: Symptoms appear consistent with stye. Patient is advised to follow up with [facility] PCP but return to the ED if symptoms worsen. Patient understood and agrees with the plan of care. . 14:46 Data reviewed: vital signs, nurses notes. Counseling: I had a detailed discussion with [facility] the patient and/or guardian regarding: the historical points, exam findings, and any diagnostic results supporting the discharge/admit diagnosis, the need for outpatient follow up, to return to the emergency department if symptoms worsen or persist or if there are any questions or concerns that arise at home. Administered Medications: No medications were administered Disposition: 15:46 Co-signature as Attending Physician, Jaylan King MD. Disposition: 06/28/18 14:47 Discharged to Home. Impression: Hordeolum externum. - Condition is Stable. - Discharge Instructions: Stye. - Prescriptions for Augmentin 875- 125 mg Oral Tablet - take 1 tablet by ORAL route every 12 hours for 10 days; 20 tablet. Erythromycin 5 mg/gram (0.5 %) Ophthalmic Ointment - apply 1 centimeter by OPHTHALMIC route 2-3 times daily for 7 days; 1 tube. - Medication Reconciliation Form, Thank You Letter, Antibiotic Education, Prescription Opioid Use form. - Follow up: Private Physician; When: 2 - 3 days; Reason: Recheck today's complaints, Continuance of care, Re-evaluation by your physician. - Notes: Please follow up with your primary care provider in 2 to 3 days for reevaluation. Please return to the ED if you develop increased swelling, fever, increased pain, decreased vision, or any other concerning symptoms. Signatures: Cy Onofre RN RN sg Mickail, Joel, PA PA jmm Starr, Gregory, MD MD gs Corrections: (The following items were deleted from the chart) 15:06 14:47 06/28/2018 14:47 Discharged to Home. Impression: Hordeolum externum. Condition is sg Stable. Forms are Medication Reconciliation Form, Thank You Letter, Antibiotic Education, Prescription Opioid Use. Follow up: Private Physician; When: 2 - 3 days; Reason: Recheck today's complaints, Continuance of care, Re-evaluation by your physician. [email or web address]
--- NOTE | 2018-06-28 14:48 | ER ---
Nurse's Notes [facility] Name: Charito Michael Age: 53 yrs Sex: Female : 1965 Arrival Date: 06/28/2018 Time: 14:25 Bed 11 Private MD: Diagnosis: Hordeolum externum Presentation: 06/28 14:30 Presenting complaint: Patient states: Swelling in my eye, it itches a little bit too. sg Transition of care: patient was not received from another setting of care. Onset of symptoms was June 28, 2018. Risk Assessment: Do you want to hurt yourself or someone else? Patient reports no desire to harm self or others. Initial Sepsis Screen: Does the patient meet any 2 criteria? No. Patient's initial sepsis screen is negative. Does the patient have a suspected source of infection? No. Patient's initial sepsis screen is negative. Care prior to arrival: None. 14:30 Method Of Arrival: Ambulatory sg 14:30 Acuity: GIULIANO 4 sg Triage Assessment: 14:35 General: Appears in no apparent distress. Behavior is calm, cooperative, appropriate sg for age. 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 - Social history:: Smoking status: Patient/guardian denies using tobacco. - Ebola Screening: : Patient negative for fever greater than or equal to 101.5 degrees Fahrenheit, and additional compatible Ebola Virus Disease symptoms Patient denies exposure to infectious person Patient denies travel to an Ebola-affected area in the 21 days before illness onset No symptoms or risks identified at this time. Screenin:35 Abuse screen: Denies threats or abuse. Denies injuries from another. Nutritional sg screening: No deficits noted. Tuberculosis screening: No symptoms or risk factors identified. Never had TB. Fall Risk None identified. Assessment: 14:35 General: Appears in no apparent distress. well groomed, well developed, well nourished, sg Behavior is calm, cooperative, appropriate for age. Pain: Denies pain. Neuro: Level of Consciousness is awake, alert, obeys commands, Oriented to person, place, time, Speech is normal. Cardiovascular: Capillary refill is brisk in bilateral fingers Patient's skin is warm and dry. Chest pain is denied. Respiratory: Airway is patent Respiratory effort is even, unlabored, Respiratory pattern is regular, symmetrical. GI: Abdomen is round non-distended. : No signs and/or symptoms were reported regarding the genitourinary system. EENT: Oral mucosa is moist. Throat is pink bilaterally Reports swelling to the left eye. Derm: Skin is pink, warm \T\ dry. Musculoskeletal: No signs and/or symptoms reported regarding the musculoskeletal system. Vital Signs: 14:31 BP 148 / 92; Pulse 88; Resp 18; Temp 97.2; Pulse Ox 96% on R/A; Pain 3/10; sg ED Course: 14:25 Patient arrived in ED. tw3 14:31 Triage completed. sg 14:31 Arm band placed on. sg 14:35 Patient has correct armband on for positive identification. Bed in low position. Call sg light in reach. Pulse ox on. NIBP on. Head of bed elevated. 14:36 Arie Hidalgo PA is PHCP. [facility] 14:36 Jaylan King MD is Attending Physician. [facility] 15:02 No provider procedures requiring assistance completed. Patient did not have IV access sg during this emergency room visit. Administered Medications: No medications were administered Outcome: 14:47 Discharge ordered by . [facility] 15:02 Discharged to home ambulatory, with family. sg 15:02 Condition: good 15:02 Discharge instructions given to patient, Instructed on discharge instructions, follow up and referral plans. no drinking with medication, no driving heavy equipment, medication usage, safety practices, Demonstrated understanding of instructions, follow-up care, medications, Prescriptions given X 2. 15:06 Patient left the ED. sg Signatures: Cy Onofre, HALLE RN Arie Zavaleta PA PA jmm Wade, Tia tw3
[2018-06-28 16:19] VITALS: BP 148/92; TEMP 97.2; O2SAT 96
== END 2018-06-28 15:06 | disposition home or self-care (01) ==
LOC: ER 14:21
DX: H00.013 Hordeolum externum right eye, unspecified eyelid (principal); I10 Essential (primary) hypertension; I50.9 Heart failure, unspecified; Z21 Asymptomatic human immunodeficiency virus [HIV] infection status
CPT/HCPCS: 99283

== ENCOUNTER 2018-07-05 11:25 | Emergency (ER) | payer OTHER ==
--- OUTSIDE RECORDS SUMMARY | 2018-07-05 11:26 | XMS REPORT ---
:1965 [facility] Address [address] [place] [address] Dr. Bay [address] [place] [id number] Care Team Providers Name Role Phone Unavailable Unavailable Unavailable Problems This patient has no known problems. Allergies, Adverse Reactions, Alerts This patient has no known allergies or adverse reactions. Medications This patient has no known medications.
--- NOTE | 2018-07-05 12:08 | EDPHYS ---
Physician Documentation [facility] Name: Charito Michael Age: 53 yrs Sex: Female : 1965 Arrival Date: 07/05/2018 Time: 11:26 Bed 5 Private MD: ED Physician Chi Sanchez HPI: 07/05 12:17 This 53 yrs old Black Female presents to ER via Ambulatory with complaints of Back Pain jr8 and toothache. 12:17 Patient stated that she feels that her back has given out again and has been having jr8 pain in teeth again. History of chronic back pain and poor dentition . Severity of symptoms: At their worst the symptoms were mild in the emergency department the symptoms are unchanged. The patient has experienced similar episodes in the past, multiple times. The patient has not recently seen a physician. 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 - iw Historical: - Allergies: 11:54 NKA; iw 11:54 NKA; hj - Home Meds: 11:54 blood pressure pill, back pain pill, other pills [Active]; unknown medications, states iw she takes several [Active]; 11:54 blood pressure pill, back pain pill, other pills [Active]; unknown medications, states hj she takes several [Active]; - PMHx: 11:54 Back pain; CHF; Chronic pain; COPD; HIV; Hypertension; seasonal allergies; iw 11:54 Back pain; CHF; Chronic pain; COPD; HIV; Hypertension; seasonal allergies; hj - PSHx: 11:54 tumor removed from stomach; iw 11:54 tumor removed from stomach; hj - Immunization history:: Adult Immunizations up to date. - Social history:: Smoking status: Patient/guardian denies using tobacco, Patient/guardian denies using alcohol. - Ebola Screening: : Patient negative for fever greater than or equal to 101.5 degrees Fahrenheit, and additional compatible Ebola Virus Disease symptoms Patient denies exposure to infectious person Patient denies travel to an Ebola-affected area in the 21 days before illness onset No symptoms or risks identified at this time Patient negative for fever greater than or equal to 101.5 degrees Fahrenheit, and additional compatible Ebola Virus Disease symptoms Patient denies exposure to infectious person Patient denies travel to an Ebola-affected area in the 21 days before illness onset. ROS: 12:17 Eyes: Negative for injury, pain, redness, and discharge, Neck: Negative for injury, jr8 pain, and swelling, Cardiovascular: Negative for chest pain, palpitations, and edema, Respiratory: Negative for shortness of breath, cough, wheezing, and pleuritic chest pain, Abdomen/GI: Negative for abdominal pain, nausea, vomiting, diarrhea, and constipation, MS/Extremity: Negative for injury and deformity, Skin: Negative for injury, rash, and discoloration, Neuro: Negative for headache, weakness, numbness, tingling, and seizure. 12:17 ENT: Positive for dental pain. 12:17 Back: Positive for pain at rest, pain with movement, of the low back area. Exam: 12:17 Eyes: Pupils equal round and reactive to light, extra-ocular motions intact. Lids and jr8 lashes normal. Conjunctiva and sclera are non-icteric and not injected. Cornea within normal limits. Periorbital areas with no swelling, redness, or edema. ENT: Nares patent. No nasal discharge, no septal abnormalities noted. Tympanic membranes are normal and external auditory canals are clear. Oropharynx with no redness, swelling, or masses, exudates, or evidence of obstruction, uvula midline. Mucous membranes moist. Poor dentition with cavities noted throughout mouth Neck: Trachea midline, no thyromegaly or masses palpated, and no cervical lymphadenopathy. Supple, full range of motion without nuchal rigidity, or vertebral point tenderness. No Meningismus. Cardiovascular: Regular rate and rhythm with a normal S1 and S2. No gallops, murmurs, or rubs. Normal PMI, no JVD. No pulse deficits. Respiratory: Lungs have equal breath sounds bilaterally, clear to auscultation and percussion. No rales, rhonchi or wheezes noted. No increased work of breathing, no retractions or nasal flaring. Abdomen/GI: Soft, non-tender, with normal bowel sounds. No distension or tympany. No guarding or rebound. No evidence of tenderness throughout. Skin: Warm, dry with normal turgor. Normal color with no rashes, no lesions, and no evidence of cellulitis. MS/ Extremity: Pulses equal, no cyanosis. Neurovascular intact. Full, normal range of motion. Neuro: Awake and alert, GCS 15, oriented to person, place, time, and situation. Cranial nerves II-XII grossly intact. Motor strength 5/5 in all extremities. Sensory grossly intact. Cerebellar exam normal. Normal gait. 12:17 Back: pain, that is mild, of the low back area, ROM is painful, with flexion, normal spinal alignment noted, vertebral tenderness, is not appreciated. Vital Signs: 11:54 BP 173 / 99; Pulse 83; Resp 16; Temp 98.3; Pulse Ox 98% on R/A; Weight 81.65 kg; Height iw 5 ft. 3 in. (160.02 cm); Pain 10/10; 11:54 Body Mass Index 31.89 (81.65 kg, 160.02 cm) iw MDM: 11:51 Patient medically screened. jr8 11:59 Data reviewed: vital signs, nurses notes, and as a result, I will discharge patient. jr8 Data interpreted: Pulse oximetry: on room air is 98 %. Interpretation: normal. Counseling: I had a detailed discussion with the patient and/or guardian regarding: the historical points, exam findings, and any diagnostic results supporting the discharge/admit diagnosis, the need for outpatient follow up, a family practitioner, to return to the emergency department if symptoms worsen or persist or if there are any questions or concerns that arise at home. Administered Medications: No medications were administered Disposition: 07/05/18 12:07 Discharged to Home. Impression: Periapical abscess without sinus, Low back pain. - Condition is Stable. - Discharge Instructions: Back Pain, Adult, Dental Abscess, Musculoskeletal Pain. - Prescriptions for Amoxicillin 875 mg Oral Tablet - take 1 tablet by ORAL route every 12 hours for 10 days; 20 tablet. Mobic 7.5 mg Oral Tablet - take 1 tablet by ORAL route once daily take with food; 12 tablet. Medrol (Luis Felipe) 4 mg Oral Tablets, Dose Pack - take 1 tablet by ORAL route as directed - follow package instructions; 1 packet. - Medication Reconciliation Form, Thank You Letter, Antibiotic Education, Prescription Opioid Use form. - Follow up: Private Physician; When: 5 - 6 days; Reason: Recheck today's complaints, Continuance of care, Re-evaluation by your physician. - Problem is new. - Symptoms have improved. Addendum: 07/08/2018 08:55 Co-signature as Attending Physician, Chi Sanchez MD I agree with the assessment and c yadav plan of care. Signatures: Chi Sanchez MD MD cha Williams, Irene, RN RN Dimitri Alvarez PA PA jr8 Virgil Holland RN RN hj Corrections: (The following items were deleted from the chart) 07/05 12:12 12:07 07/05/2018 12:07 Discharged to Home. Impression: Periapical abscess without iw sinus; Low back pain. Condition is Stable. Forms are Medication Reconciliation Form, Thank You Letter, Antibiotic Education, Prescription Opioid Use. Follow up: Private Physician; When: 5 - 6 days; Reason: Recheck today's complaints, Continuance of care, Re-evaluation by your physician. Problem is new. Symptoms have improved. jr8
--- NOTE | 2018-07-05 12:08 | ER ---
Nurse's Notes [facility] Name: Charito Mcihael Age: 53 yrs Sex: Female : 1965 Arrival Date: 07/05/2018 Time: 11:26 Bed 5 Private MD: Diagnosis: Periapical abscess without sinus;Low back pain Presentation: 07/05 11:52 Presenting complaint: Patient states: pt c/o pain to back, legs, and arms, also c/o iw stuffy nose. Transition of care: patient was not received from another setting of care. Onset of symptoms was July 05, 2018. Risk Assessment: Do you want to hurt yourself or someone else? Patient reports no desire to harm self or others. Initial Sepsis Screen: Does the patient meet any 2 criteria? No. Patient's initial sepsis screen is negative. Does the patient have a suspected source of infection? No. Patient's initial sepsis screen is negative. Care prior to arrival: None. 11:52 Method Of Arrival: Ambulatory iw 11:52 Acuity: GIULIANO 4 iw Triage Assessment: 11:55 General: Appears in no apparent distress. uncomfortable, Behavior is calm, cooperative, hj appropriate for age. Pain: Complains of pain in back. Musculoskeletal: Circulation, motion, and sensation intact. 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 - iw Historical: - Allergies: 11:54 NKA; iw 11:54 NKA; hj - Home Meds: 11:54 blood pressure pill, back pain pill, other pills [Active]; unknown medications, states iw she takes several [Active]; 11:54 blood pressure pill, back pain pill, other pills [Active]; unknown medications, states hj she takes several [Active]; - PMHx: 11:54 Back pain; CHF; Chronic pain; COPD; HIV; Hypertension; seasonal allergies; iw 11:54 Back pain; CHF; Chronic pain; COPD; HIV; Hypertension; seasonal allergies; hj - PSHx: 11:54 tumor removed from stomach; iw 11:54 tumor removed from stomach; hj - Immunization history:: Adult Immunizations up to date. - Social history:: Smoking status: Patient/guardian denies using tobacco, Patient/guardian denies using alcohol. - Ebola Screening: : Patient negative for fever greater than or equal to 101.5 degrees Fahrenheit, and additional compatible Ebola Virus Disease symptoms Patient denies exposure to infectious person Patient denies travel to an Ebola-affected area in the 21 days before illness onset No symptoms or risks identified at this time Patient negative for fever greater than or equal to 101.5 degrees Fahrenheit, and additional compatible Ebola Virus Disease symptoms Patient denies exposure to infectious person Patient denies travel to an Ebola-affected area in the 21 days before illness onset. Screenin:54 Abuse screen: Denies threats or abuse. Denies injuries from another. Nutritional hj screening: No deficits noted. Tuberculosis screening: No symptoms or risk factors identified. Fall Risk None identified. Assessment: 12:07 General: Appears in no apparent distress. Behavior is calm. Pain: Complains of pain in iw back. Neuro: Level of Consciousness is awake, alert, obeys commands, Moves all extremities. Cardiovascular: Capillary refill < 3 seconds in bilateral fingers Patient's skin is warm and dry. Respiratory: Airway is patent Respiratory effort is even, unlabored, Respiratory pattern is regular. Derm: Skin is intact, is healthy with good turgor. Musculoskeletal: Range of motion: intact in all extremities. Vital Signs: 11:54 BP 173 / 99; Pulse 83; Resp 16; Temp 98.3; Pulse Ox 98% on R/A; Weight 81.65 kg; Height iw 5 ft. 3 in. (160.02 cm); Pain 10/10; 11:54 Body Mass Index 31.89 (81.65 kg, 160.02 cm) iw ED Course: 11:26 Patient arrived in ED. rg4 11:47 Kelly Deleon, HALLE is Primary Nurse. iw 11:51 Dimitri Sanchez PA is PHCP. jr8 11:51 Chi Sanchez MD is Attending Physician. jr8 11:53 Triage completed. iw 11:55 Arm band placed on right wrist. hj 11:55 Patient has correct armband on for positive identification. Bed in low position. Call hj light in reach. Side rails up X 1. 12:08 No provider procedures requiring assistance completed. iw 12:09 Patient did not have IV access during this emergency room visit. iw Administered Medications: No medications were administered Outcome: 12:07 Discharge ordered by . jr8 12:10 Discharged to home ambulatory. iw 12:10 Condition: good 12:10 Discharge instructions given to patient, Instructed on discharge instructions, follow up and referral plans. medication usage, Demonstrated understanding of instructions, follow-up care, medications, Prescriptions given X 3. 12:12 Patient left the ED. iw Signatures: Kelly Deleon RN RN Dimitri Alvarez PA PA jr8 Virgil Holland RN RN hj Garcia, Rubi rg4
[2018-07-05 12:17] VITALS: BP 173/99; TEMP 98.3; O2SAT 98
== END 2018-07-05 12:12 | disposition home or self-care (01) ==
LOC: ER 11:25
DX: K04.7 Periapical abscess without sinus (principal); M54.5 Low back pain; I11.0 Hypertensive heart disease with heart failure; I50.9 Heart failure, unspecified; J44.9 Chronic obstructive pulmonary disease, unspecified; B20 Human immunodeficiency virus [HIV] disease
CPT/HCPCS: 99282

== ENCOUNTER 2018-07-10 13:32 | Emergency (ER) | payer OTHER ==
--- NOTE | 2018-07-10 15:16 | RAD REPORT ---
EXAM DESCRIPTION: RAD - Chest Pa And Lat (2 Views) - 07/10/2018 3:10 pm CLINICAL HISTORY: COUGH Chest pain. COMPARISON: Chest Single View dated 01/12/2018; Chest Single View dated 01/10/2018; Chest Pa And Lat (2 Views) dated 08/09/2017; Chest Pa And Lat (2 Views) dated 07/11/2017 FINDINGS: Prominent interstitial pattern is seen likely indicating atypical infection. No focal cons olidation typical of pneumonia present. The heart is upper limit of normal in size. No displaced frac tures.
--- NOTE | 2018-07-10 15:18 | EDPHYS ---
Physician Documentation [facility] Name: Charito Michael Age: 53 yrs Sex: Female : 1965 Arrival Date: 07/10/2018 Time: 13:40 Bed 12 Private MD: ED Physician Alexys Yarbrough HPI: 07/10 14:15 This 53 yrs old Black Female presents to ER via Ambulatory with complaints of Cough, cp Congestion, Back Pain. 14:15 The patient or guardian reports cough, that is intermittent. cp 14:15 Onset: The symptoms/episode began/occurred 3 day(s) ago. Severity of symptoms: in the emergency department the symptoms are unchanged, despite home interventions. Associated signs and symptoms: Pertinent positives: congestion, back pain, Pertinent negatives: chest pain, diarrhea, ear ache, fever, vomiting. 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 - Ebola Screening: : Patient negative for fever greater than or equal to 101.5 degrees Fahrenheit, and additional compatible Ebola Virus Disease symptoms Patient denies exposure to infectious person Patient denies travel to an Ebola-affected area in the 21 days before illness onset No symptoms or risks identified at this time. - Social history:: Smoking status: unknown. ROS: 14:20 Constitutional: Negative for body aches, chills, fever, poor PO intake. cp 14:20 Eyes: Negative for injury, pain, redness, and discharge. cp 14:20 ENT: Negative for drainage from ear(s), ear pain, sore throat, difficulty swallowing, difficulty handling secretions. 14:20 Cardiovascular: Negative for chest pain, palpitations. 14:20 Respiratory: Positive for cough, Negative for shortness of breath, wheezing. 14:20 Abdomen/GI: Negative for abdominal pain, nausea, vomiting, and diarrhea. 14:20 Skin: Negative for cellulitis, rash. 14:20 Neuro: Negative for altered mental status, headache, weakness. 14:20 All other systems are negative. Exam: 14:28 Constitutional: The patient appears in no acute distress, alert, awake, cp non-diaphoretic, non-toxic, well developed, well nourished. 14:28 Head/Face: Normocephalic, atraumatic. cp 14:28 Eyes: Periorbital structures: appear normal, Conjunctiva: normal, no exudate, no injection, Sclera: no appreciated abnormality, Lids and lashes: appear normal, bilaterally. 14:28 ENT: External ear(s): are unremarkable, Ear canal(s): are normal, clear, TM's: dullness, bilaterally, Nose: is normal, Mouth: Lips: moist, Oral mucosa: pink and intact, moist, Posterior pharynx: is normal, airway is patent, no erythema, no exudate. 14:28 Neck: ROM/movement: is normal, is supple, without pain, no range of motions limitations, no nuchal rigidity. 14:28 Chest/axilla: Inspection: normal, Palpation: is normal, no crepitus, no tenderness. 14:28 Cardiovascular: Rate: normal, Rhythm: regular, Edema: is not appreciated. 14:28 Respiratory: the patient does not display signs of respiratory distress, Respirations: normal, no use of accessory muscles, no retractions, no splinting, no tachypnea, labored breathing, is not present. 14:28 Abdomen/GI: Exam negative for discomfort, distension, guarding, Inspection: abdomen appears normal. 14:28 Back: pain, that is mild, ROM is normal. Vital Signs: 13:47 BP 130 / 78; Pulse 88; Resp 16 S; Temp 97.8; Pulse Ox 100% on R/A; iw MDM: 14:02 Patient medically screened. cp 15:00 Differential Diagnosis: Bronchitis Influenza Viral Syndrome Pneumonia. cp 15:18 Data reviewed: vital signs, nurses notes, lab test result(s), radiologic studies, plain cp films. 15:18 Test interpretation: by ED physician or midlevel provider: plain radiologic studies. cp Counseling: I had a detailed discussion with the patient and/or guardian regarding: the historical points, exam findings, and any diagnostic results supporting the discharge/admit diagnosis, radiology results, the need for outpatient follow up, a family practitioner, to return to the emergency department if symptoms worsen or persist or if there are any questions or concerns that arise at home. 07/10 14:10 Order name: Influenza Screen (a \T\ B); Complete Time: 15:22 07/10 14:10 Order name: Strep; Complete Time: 15:22 07/10 14:10 Order name: XRAY Chest Pa And Lat (2 Views); Complete Time: 15:22 07/10 15:22 Interpretation: Report reviewed. 07/10 14:37 Order name: Throat Culture EDMS Administered Medications: No medications were administered Disposition: 07/11 12:43 Co-signature as Attending Physician, Alexys Yarbrough MD I agree with the assessment and kdr plan of care. 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 Disposition: 07/10/18 15:18 Discharged to Home. Impression: Nasal congestion, Cough, Low back pain. - Condition is Stable. - Discharge Instructions: Back Pain, Adult, Cough, Adult, [id number], Back Exercises, [id number]. - Prescriptions for Nasonex 50 mcg/actuation Nasal spray,non- aerosol - spray 2 spray by INTRANASAL route once daily As needed; 1 unit. Ibuprofen 800 mg Oral Tablet - take 1 tablet by ORAL route every 8 hours As needed take with food; 30 tablet. Zyrtec 10 mg Oral Tablet - take 1 tablet by ORAL route once daily As needed; 30 tablet. Albuterol Sulfate 90 mcg/actuation - inhale 1-2 puff by INHALATION route every 4-6 hours; 1 Inhaler. Zithromax Z- Luis Felipe 250 mg Oral Tablet - take 1 tablet by ORAL route as directed for 5 days Day 1 - take two (2) tablets one time. Day 2, 3, 4 , 5 take one (1) tablet once daily.; 6 tablet. - Medication Reconciliation Form, Thank You Letter, Antibiotic Education, Prescription Opioid Use form. - Follow up: Private Physician; When: 2 - 3 days; Reason: Worsening of condition. - Problem is new. - Symptoms are unchanged. Signatures: Dispatcher [employer] EDMS Alexys Yarbrough MD MD kdr Kelly Deleon RN RN Chi Sung PA PA cp Corrections: (The following items were deleted from the chart) 07/10 15:18 15:18 07/10/2018 15:18 Discharged to Home. Impression: Nasal congestion; Cough. cp Condition is Stable. Forms are Medication Reconciliation Form, Thank You Letter, Antibiotic Education, Prescription Opioid Use. Follow up: Private Physician; When: 2 - 3 days; Reason: Worsening of condition. Problem is new. Symptoms are unchanged. cp 15:32 15:18 07/10/2018 15:18 Discharged to Home. Impression: Nasal congestion; Cough; Low iw back pain. Condition is Stable. Forms are Medication Reconciliation Form, Thank You Letter, Antibiotic Education, Prescription Opioid Use. Follow up: Private Physician; When: 2 - 3 days; Reason: Worsening of condition. Problem is new. Symptoms are unchanged. cp 07/11 15:07 15:07 Constitutional: Negative for cp cp
--- NOTE | 2018-07-10 15:18 | ER ---
Nurse's Notes [facility] Name: Charito Michael Age: 53 yrs Sex: Female : 1965 Arrival Date: 07/10/2018 Time: 13:40 Bed 12 Private MD: Diagnosis: Nasal congestion;Cough;Low back pain Presentation: 07/10 13:45 Presenting complaint: Patient states: has had cough, congestion, back pain X 3 days, iw states she's out of her allergy medicine and her inhaler. Transition of care: patient was not received from another setting of care. Onset of symptoms was July 07, 2018. Risk Assessment: Do you want to hurt yourself or someone else? Patient reports no desire to harm self or others. Initial Sepsis Screen: Does the patient meet any 2 criteria? No. Patient's initial sepsis screen is negative. Does the patient have a suspected source of infection? No. Patient's initial sepsis screen is negative. Care prior to arrival: None. 13:45 Method Of Arrival: Ambulatory iw 13:45 Acuity: GIULIANO 4 iw Triage Assessment: 15:00 General: Appears in no apparent distress. Behavior is calm, cooperative. Respiratory: iw Respiratory effort is even, unlabored. 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 - Ebola Screening: : Patient negative for fever greater than or equal to 101.5 degrees Fahrenheit, and additional compatible Ebola Virus Disease symptoms Patient denies exposure to infectious person Patient denies travel to an Ebola-affected area in the 21 days before illness onset No symptoms or risks identified at this time. - Social history:: Smoking status: unknown. Screenin:31 Abuse screen: Denies threats or abuse. Denies injuries from another. Nutritional iw screening: No deficits noted. Tuberculosis screening: No symptoms or risk factors identified. Fall Risk None identified. Assessment: 14:00 General: Appears in no apparent distress. Behavior is calm, cooperative. Pain: iw Complains of pain in back. Neuro: Level of Consciousness is awake, alert, obeys commands, Moves all extremities. Full function. Cardiovascular: Capillary refill < 3 seconds in bilateral fingers Patient's skin is warm and dry. Respiratory: Airway is patent Respiratory effort is even, unlabored, Breath sounds are clear bilaterally. Derm: Skin is intact, is healthy with good turgor. Musculoskeletal: Range of motion: intact in all extremities. Vital Signs: 13:47 BP 130 / 78; Pulse 88; Resp 16 S; Temp 97.8; Pulse Ox 100% on R/A; iw ED Course: 13:40 Patient arrived in ED. iw 13:47 Triage completed. iw 14:00 Patient has correct armband on for positive identification. iw 14:02 Chi Holder PA is PHCP. cp 14:02 Alexys Yarbrough MD is Attending Physician. cp 14:16 Kelly Deleon RN is Primary Nurse. iw 15:00 Arm band placed on. iw 15:10 XRAY Chest Pa And Lat (2 Views) In Process Unspecified. EDMS 15:31 No provider procedures requiring assistance completed. Patient did not have IV access iw during this emergency room visit. Administered Medications: No medications were administered Outcome: 15:18 Discharge ordered by . cp 15:31 Discharged to home ambulatory. iw 15:31 Condition: good 15:31 Discharge instructions given to patient, Instructed on discharge instructions, follow up and referral plans. medication usage, Demonstrated understanding of instructions, follow-up care, medications, Prescriptions given X 4. 15:32 Patient left the ED. iw Signatures: Dispatcher [employer] EDMS Kelly Deleon RN RN iw Chi oHlder PA PA cp
--- OUTSIDE RECORDS SUMMARY | 2018-07-10 15:34 | XMS REPORT ---
:1965 [facility] Address [address] [place] [address] Care Team Providers Name Role Phone Unavailable Unavailable Unavailable Problems This patient has no known problems. Allergies, Adverse Reactions, Alerts This patient has no known allergies or adverse reactions. Medications This patient has no known medications.
[2018-07-10 16:44] VITALS: BP 130/78; TEMP 97.8; O2SAT 100
== END 2018-07-10 15:32 | disposition home or self-care (01) ==
LOC: ER 13:32
DX: R05 Cough (principal); R09.81 Nasal congestion; M54.5 Low back pain
CPT/HCPCS: 71046; 87070; 87081; 87804; 99283

== ENCOUNTER 2018-07-25 09:06 | Emergency (ER) | payer OTHER ==
--- OUTSIDE RECORDS SUMMARY | 2018-07-25 09:10 | XMS REPORT ---
:1965 [facility] Address [address] [place] [address] Care Team Providers Name Role Phone Unavailable Unavailable Unavailable Problems This patient has no known problems. Allergies, Adverse Reactions, Alerts This patient has no known allergies or adverse reactions. Medications This patient has no known medications.
--- NOTE | 2018-07-25 10:27 | RAD REPORT ---
EXAM DESCRIPTION: RAD - Chest Single View - 07/25/2018 10:12 am CLINICAL HISTORY: Cough, back pain COMPARISON: July 10, 2018 TECHNIQUE: AP portable chest image was obtained 1011 hours . FINDINGS: No peripheral mass or consolidation. Mild prominence of the interstitial markings has not changed. No mediastinal or hilar mass or lymphadenopathy seen. Heart size is upper normal to minimally enlarged. No acute vascular engorgement. No measurable pleur al effusion and no pneumothorax. No acute bony abnormality seen. No acute aortic findings suspected. IMPRESSION: No acute cardiopulmonary findings. Prominent interstitial pattern is stable. Borderline to mild cardiomegaly without acute failure or volume overload.
--- NOTE | 2018-07-25 11:26 | EDPHYS ---
Physician Documentation [facility] Name: Charito Michael Age: 53 yrs Sex: Female : 1965 Arrival Date: 07/25/2018 Time: 09:11 Bed 8 Private MD: ED Physician Alexys Yarbrough HPI: 07/25 09:44 This 53 yrs old Black Female presents to ER via Ambulatory with complaints of Back Pain.kb 09:44 The patient or guardian reports cough, that is intermittent, described as mild, with no kb sputum. Onset: The symptoms/episode began/occurred yesterday. Severity of symptoms: At their worst the symptoms were mild, moderate, in the emergency department the symptoms are unchanged. Modifying factors: The symptoms are alleviated by nothing, the symptoms are aggravated by nothing. Associated signs and symptoms: Pertinent positives: sore throat, Pertinent negatives: chest pain, diarrhea, ear ache, fever, nausea, rhinorrhea, vomiting. The patient has experienced similar episodes in the past. The patient has not recently seen a physician. Pt reports she has a cold and her back hurts. States the back pain is chronic, but was worse yesterday. States she has "sinus trouble," a cough and sore throat. Denies fever. . 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 - Social history:: Smoking status: Patient/guardian denies using tobacco. - Ebola Screening: : No symptoms or risks identified at this time. ROS: 09:44 Constitutional: Negative for fever, chills, and weight loss, Cardiovascular: Negative kb for chest pain, palpitations, and edema, Abdomen/GI: Negative for abdominal pain, nausea, vomiting, diarrhea, and constipation, : Negative for injury, bleeding, discharge, and swelling, MS/Extremity: Negative for injury and deformity, Skin: Negative for injury, rash, and discoloration, Neuro: Negative for headache, weakness, numbness, tingling, and seizure. 09:44 ENT: Positive for sinus congestion, sore throat. 09:44 Respiratory: Positive for cough, Negative for dyspnea on exertion, hemoptysis, orthopnea, pleurisy, shortness of breath, sputum production, wheezing. 09:44 Back: Positive for pain at rest, pain with movement. Exam: 09:44 Constitutional: This is a well developed, well nourished patient who is awake, alert, kb and in no acute distress. Head/Face: Normocephalic, atraumatic. ENT: Nares patent. No nasal discharge, no septal abnormalities noted. Tympanic membranes are normal and external auditory canals are clear. Oropharynx with no redness, swelling, or masses, exudates, or evidence of obstruction, uvula midline. Mucous membranes moist. Neck: Trachea midline, no thyromegaly or masses palpated, and no cervical lymphadenopathy. Supple, full range of motion without nuchal rigidity, or vertebral point tenderness. No Meningismus. Chest/axilla: Normal chest wall appearance and motion. Nontender with no deformity. No lesions are appreciated. Cardiovascular: Regular rate and rhythm with a normal S1 and S2. No gallops, murmurs, or rubs. Normal PMI, no JVD. No pulse deficits. Respiratory: Lungs have equal breath sounds bilaterally, clear to auscultation and percussion. No rales, rhonchi or wheezes noted. No increased work of breathing, no retractions or nasal flaring. Abdomen/GI: Soft, non-tender, with normal bowel sounds. No distension or tympany. No guarding or rebound. No evidence of tenderness throughout. Skin: Warm, dry with normal turgor. Normal color with no rashes, no lesions, and no evidence of cellulitis. MS/ Extremity: Pulses equal, no cyanosis. Neurovascular intact. Full, normal range of motion. Neuro: Awake and alert, GCS 15, oriented to person, place, time, and situation. Cranial nerves II-XII grossly intact. Motor strength 5/5 in all extremities. Sensory grossly intact. Cerebellar exam normal. Normal gait. 09:44 Back: pain, that is mild, that is moderate, reports tenderness to entire back. Vital Signs: 09:23 BP 152 / 85; Pulse 79; Resp 18; Temp 97.5; Pulse Ox 99% on R/A; Weight 68.04 kg; Height ph 5 ft. 3 in. (160.02 cm); Pain 9/10; 10:30 BP 143 / 96; Pulse 64; Resp 17; Temp 98.1(O); Pulse Ox 100% on R/A; Pain 7/10; dh3 11:32 BP 146 / 84; Pulse 68; Resp 18; Temp 97.4; Pulse Ox 99% on R/A; ph 09:23 Body Mass Index 26.57 (68.04 kg, 160.02 cm) ph MDM: 09:24 Patient medically screened. kb 09:43 Data reviewed: vital signs, nurses notes. Data interpreted: Pulse oximetry: on room air kb is 99 %. Interpretation: normal. 11:24 Counseling: I had a detailed discussion with the patient and/or guardian regarding: the kb historical points, exam findings, and any diagnostic results supporting the discharge/admit diagnosis, lab results, radiology results, the need for outpatient follow up, a family practitioner, to return to the emergency department if symptoms worsen or persist or if there are any questions or concerns that arise at home. 07/25 09:38 Order name: Flu; Complete Time: 10:31 kb 07/25 09:38 Order name: Strep; Complete Time: 10:31 kb 07/25 09:38 Order name: Chest Single View XRAY; Complete Time: 10:31 kb 07/25 10:23 Order name: Throat Culture EDMS Administered Medications: 11:30 Drug: traMADol 50 mg Route: PO; 11:33 Follow up: Response: No adverse reaction; Medication administered at discharge. ph Disposition: 12:22 Co-signature as Attending Physician, Alexys Yarbrough MD I agree with the assessment and kdr plan of care. Disposition: 07/25/18 11:25 Discharged to Home. Impression: Acute sinusitis, Chronic pain, not elsewhere classified - back. - Condition is Stable. - Discharge Instructions: Chronic Back Pain, Sinusitis, Adult, [id number]. - Medication Reconciliation Form, Thank You Letter, Antibiotic Education, Prescription Opioid Use form. - Follow up: Emergency Department; When: As needed; Reason: Worsening of condition. Follow up: Private Physician; When: 2 - 3 days; Reason: Recheck today's complaints, Continuance of care, Re-evaluation by your physician. Signatures: Dispatcher [employer] EDErin Martin, PRINT SHOP ASSISTANT-C PRINT SHOP ASSISTANT-Aleksandra Samuel, RN RN Alexys Yarbrough MD MD [facility] Becky Sewell RN RN ph Corrections: (The following items were deleted from the chart) 11:33 11:25 07/25/2018 11:25 Discharged to Home. Impression: Acute sinusitis; Chronic pain, ph not elsewhere classified - back. Condition is Stable. Forms are Medication Reconciliation Form, Thank You Letter, Antibiotic Education, Prescription Opioid Use. Follow up: Emergency Department; When: As needed; Reason: Worsening of condition. Follow up: Private Physician; When: 2 - 3 days; Reason: Recheck today's complaints, Continuance of care, Re-evaluation by your physician. kb
--- NOTE | 2018-07-25 11:26 | ER ---
Nurse's Notes [facility] Name: Charito Michael Age: 53 yrs Sex: Female : 1965 Arrival Date: 07/25/2018 Time: 09:11 Bed 8 Private MD: Diagnosis: Acute sinusitis;Chronic pain, not elsewhere classified-back Presentation: 07/25 09:22 Presenting complaint: Patient states: Mid and low back pain that began last night and ph "sinus problems", runny/stuffy nose, denies fever or urinary sympotms. Transition of care: patient was not received from another setting of care. Onset of symptoms was July 25, 2018. Risk Assessment: Do you want to hurt yourself or someone else? Patient reports no desire to harm self or others. Initial Sepsis Screen: Does the patient meet any 2 criteria? No. Patient's initial sepsis screen is negative. Does the patient have a suspected source of infection? No. Patient's initial sepsis screen is negative. 09:22 Method Of Arrival: Ambulatory ph 09:22 Acuity: GIULIANO 4 ph 09:22 Care prior to arrival: None. 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 - Social history:: Smoking status: Patient/guardian denies using tobacco. - Ebola Screening: : No symptoms or risks identified at this time. Screenin:10 Abuse screen: Denies threats or abuse. Denies injuries from another. Nutritional ch screening: No deficits noted. Tuberculosis screening: No symptoms or risk factors identified. Fall Risk None identified. Assessment: 11:10 General: Appears in no apparent distress. comfortable, Behavior is calm, cooperative, ch appropriate for age. Pain: Complains of pain in left subscapular area and right subscapular area Pain currently is 6 out of 10 on a pain scale. Pain began gradually. Neuro: Level of Consciousness is awake, alert, obeys commands, Oriented to person, place, time, situation. Respiratory: Airway is patent Respiratory effort is even, unlabored, Breath sounds are clear bilaterally. GI: Abdomen is flat, non-distended. : No signs and/or symptoms were reported regarding the genitourinary system. Derm: Skin is intact, Skin is normal. 11:31 Reassessment: Patient appears in no apparent distress at this time. Patient and/or ph family updated on plan of care and expected duration. Pain level reassessed. Patient is alert, oriented x 3, equal unlabored respirations, skin warm/dry/pink. Pt d/c home. Vital Signs: 09:23 BP 152 / 85; Pulse 79; Resp 18; Temp 97.5; Pulse Ox 99% on R/A; Weight 68.04 kg; Height ph 5 ft. 3 in. (160.02 cm); Pain 9/10; 10:30 BP 143 / 96; Pulse 64; Resp 17; Temp 98.1(O); Pulse Ox 100% on R/A; Pain 7/10; dh3 11:32 BP 146 / 84; Pulse 68; Resp 18; Temp 97.4; Pulse Ox 99% on R/A; ph 09:23 Body Mass Index 26.57 (68.04 kg, 160.02 cm) ph ED Course: 09:11 Patient arrived in ED. mr 09:23 Triage completed. ph 09:24 Erin Gastelum FNP-C [facility]. kb 09:24 Alexys Yarbrough MD is Attending Physician. kb 09:26 Arm band placed on Patient placed in an exam room, on a stretcher. ph 09:39 Aleksandra Gong, HALLE is Primary Nurse. ch 09:45 Flu and/or RSV swab sent to lab. Strep swab sent to lab. dh3 10:12 Chest Single View XRAY In Process Unspecified. EDMS 11:10 No apparent distress. Resting quietly. ch 11:10 Patient has correct armband on for positive identification. Placed in gown. Bed in low ch position. Call light in reach. Side rails up X 1. Adult w/ patient. Pulse ox on. Warm blanket given. 11:10 No provider procedures requiring assistance completed. Patient did not have IV access ch during this emergency room visit. Administered Medications: 11:30 Drug: traMADol 50 mg Route: PO; 11:33 Follow up: Response: No adverse reaction; Medication administered at discharge. ph Outcome: : Discharge ordered by . everett : Discharged to home ambulatory. ph :32 Condition: good :32 Discharge instructions given to patient, Instructed on discharge instructions, follow up and referral plans. Demonstrated understanding of instructions, follow-up care. :33 Patient left the ED. ph Signatures: Dispatcher [employer] EDErin Martin, WADE WALKER-Aleksandra Samuel, RN RN Sandi Rogers Patricia RN RN Audrey Hitchcock [facility]
[2018-07-25] MEDS ORDERED: TRAMADOL HCL 50 MG TAB ONE (11:44)
[2018-07-25 12:12] VITALS: BP 146/84; TEMP 97.4; O2SAT 99
== END 2018-07-25 11:33 | disposition home or self-care (01) ==
LOC: ER 09:06
DX: J01.90 Acute sinusitis, unspecified (principal); G89.29 Other chronic pain; I10 Essential (primary) hypertension; Z21 Asymptomatic human immunodeficiency virus [HIV] infection status
CPT/HCPCS: 71045; 87070; 87081; 87804; 99284

== ENCOUNTER 2018-09-05 09:35 | Emergency (ER) | payer OTHER ==
--- OUTSIDE RECORDS SUMMARY | 2018-09-05 09:38 | XMS REPORT ---
:1965 Author Organization [facility] Address [address] [place] [address] Care Team Providers Name Role Phone Unavailable Unavailable Unavailable Problems This patient has no known problems. Allergies, Adverse Reactions, Alerts This patient has no known allergies or adverse reactions. Medications This patient has no known medications.
--- NOTE | 2018-09-05 10:16 | ER ---
Nurse's Notes [facility] Name: Charito Michael Age: 53 yrs Sex: Female : 1965 Arrival Date: 09/05/2018 Time: 09:39 Bed 14 Private MD: Diagnosis: Low back pain;Muscle spasm of back;Acute sinusitis Presentation: 09/05 09:46 Presenting complaint: Presenting complaint: Patient states: back pain x 2 days and out ss of inhaler. 09:46 Transition of care: patient was not received from another setting of care. Onset of ss symptoms is unknown. Risk Assessment: Do you want to hurt yourself or someone else? Patient reports no desire to harm self or others. Initial Sepsis Screen: Does the patient meet any 2 criteria? No. Patient's initial sepsis screen is negative. Does the patient have a suspected source of infection? No. Patient's initial sepsis screen is negative. Care prior to arrival: None. 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 - Social history:: Smoking status: Patient/guardian denies using tobacco. - Ebola Screening: : Patient denies exposure to infectious person Patient denies travel to an Ebola-affected area in the 21 days before illness onset. - Family history:: not pertinent. Screenin:50 Abuse screen: Denies threats or abuse. Denies injuries from another. Nutritional ss screening: No deficits noted. Tuberculosis screening: Never had TB. Fall Risk None identified. Assessment: 09:50 General: Appears in no apparent distress. comfortable, Behavior is calm, cooperative, ss Denies fever, feeling ill, fatigue, chills. Pain: Complains of pain in mid- lower back Pain currently is 8 out of 10 on a pain scale. Quality of pain is described as aching, Pain began 2-3 days ago. Is continuous. Neuro: Level of Consciousness is awake, alert, obeys commands, Oriented to person, place, time, situation. Neuro: Gait is steady, Facial symmetry appears normal. Cardiovascular: Capillary refill < 3 seconds is brisk in bilateral fingers. Respiratory: Reports Pt denies cough/ shortness of breath, but reports that she is out of her asthma inhaler. Denies history of asthma Airway is patent Respiratory effort is even, unlabored, Denies cough, shortness of breath. GI: Patient currently denies abdominal pain, nausea, vomiting. : Denies burning with urination, urinary frequency. EENT: Nares are clear Throat is clear. Derm: Skin is intact, is healthy with good turgor, Skin is pink, warm \T\ dry. normal. Musculoskeletal: Circulation, motion, and sensation intact. Range of motion: intact in all extremities. Vital Signs: 09:46 BP 156 / 86; Pulse 87; Resp 16; Temp 98.8(TE); Pulse Ox 97% on R/A; Weight 68.04 kg; ss Height 5 ft. 3 in. (160.02 cm); Pain 8/10; 09:46 Body Mass Index 26.57 (68.04 kg, 160.02 cm) ED Course: 09:39 Patient arrived in ED. as 09:47 Triage completed. ss 09:49 Ashlee Gagnon, RN is Primary Nurse. ss 09:50 Patient has correct armband on for positive identification. Bed in low position. Call ss light in reach. 09:56 Chi Sanchez MD is Attending Physician. evelyn 10:36 Arm band placed on. iw 10:36 No provider procedures requiring assistance completed. Patient did not have IV access iw during this emergency room visit. Administered Medications: No medications were administered Outcome: 10:15 Discharge ordered by . evelyn 10:35 Discharged to home ambulatory. iw 10:35 Condition: good 10:35 Discharge instructions given to patient, Instructed on discharge instructions, follow up and referral plans. medication usage, Demonstrated understanding of instructions, follow-up care, medications, Prescriptions given X 3. 10:36 Patient left the ED. iw Signatures: Chi Sanchez MD MD cha Martinez, Amelia as Williams, Irene, RN RN Ashlee Gagnon, HALLE RN Corrections: (The following items were deleted from the chart) 09:47 09:46 Presenting complaint: ss ss
--- NOTE | 2018-09-05 10:16 | EDPHYS ---
Physician Documentation [facility] Name: Charito Michael Age: 53 yrs Sex: Female : 1965 Arrival Date: 09/05/2018 Time: 09:39 Bed 14 Private MD: BUZZ Physician Chi Sanchez HPI: 09/05 10:09 This 53 yrs old Black Female presents to ER via Ambulatory with complaints of Back evelyn Pain, Sinus Congestion. 10:09 The patient presents with pain that is chronic, with no known mechanism of injury. The evelyn symptoms are located in the low back. Onset: The symptoms/episode began/occurred 2 day(s) ago. The pain does not radiate. Associated signs and symptoms: The patient has no apparent associated signs or symptoms. Modifying factors: The patient symptoms are alleviated by nothing, the patient symptoms are aggravated by movement. Severity of symptoms: At their worst the symptoms were mild, in the emergency department the symptoms are unchanged. The patient has experienced similar episodes in the past. 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 - Social history:: Smoking status: Patient/guardian denies using tobacco. - Ebola Screening: : Patient denies exposure to infectious person Patient denies travel to an Ebola-affected area in the 21 days before illness onset. - Family history:: not pertinent. ROS: 10:09 Constitutional: Negative for fever, chills, and weight loss, Eyes: Negative for injury, evelyn pain, redness, and discharge, Neck: Negative for injury, pain, and swelling, Cardiovascular: Negative for chest pain, palpitations, and edema, Respiratory: Negative for shortness of breath, cough, wheezing, and pleuritic chest pain, Abdomen/GI: Negative for abdominal pain, nausea, vomiting, diarrhea, and constipation, Back: Negative for injury and pain, : Negative for injury, bleeding, discharge, and swelling, MS/Extremity: Negative for injury and deformity, Skin: Negative for injury, rash, and discoloration, Neuro: Negative for headache, weakness, numbness, tingling, and seizure. 10:09 ENT: Positive for sinus congestion. 10:09 Back: Positive for decreased range of motion, pain with movement, of the lumbar area. Exam: 10:09 Constitutional: This is a well developed, well nourished patient who is awake, alert, evelyn and in no acute distress. Head/Face: Normocephalic, atraumatic. Eyes: Pupils equal round and reactive to light, extra-ocular motions intact. Lids and lashes normal. Conjunctiva and sclera are non-icteric and not injected. Cornea within normal limits. Periorbital areas with no swelling, redness, or edema. Neck: Trachea midline, no thyromegaly or masses palpated, and no cervical lymphadenopathy. Supple, full range of motion without nuchal rigidity, or vertebral point tenderness. No Meningismus. Chest/axilla: Normal chest wall appearance and motion. Nontender with no deformity. No lesions are appreciated. Cardiovascular: Regular rate and rhythm with a normal S1 and S2. No gallops, murmurs, or rubs. Normal PMI, no JVD. No pulse deficits. Respiratory: Lungs have equal breath sounds bilaterally, clear to auscultation and percussion. No rales, rhonchi or wheezes noted. No increased work of breathing, no retractions or nasal flaring. Abdomen/GI: Soft, non-tender, with normal bowel sounds. No distension or tympany. No guarding or rebound. No evidence of tenderness throughout. Back: No spinal tenderness. No costovertebral tenderness. Full range of motion. Skin: Warm, dry with normal turgor. Normal color with no rashes, no lesions, and no evidence of cellulitis. MS/ Extremity: Pulses equal, no cyanosis. Neurovascular intact. Full, normal range of motion. Neuro: Awake and alert, GCS 15, oriented to person, place, time, and situation. Cranial nerves II-XII grossly intact. Motor strength 5/5 in all extremities. Sensory grossly intact. Cerebellar exam normal. Normal gait. Psych: Awake, alert, with orientation to person, place and time. Behavior, mood, and affect are within normal limits. 10:09 ENT: Nose: nasal drainage. 10:09 Back: pain, that is mild, that is moderate, ROM is painful, normal spinal alignment noted, CVA tenderness, is absent, vertebral tenderness, is not appreciated, muscle spasm, is appreciated in the left low back, left mid back, right mid back and right low back. Vital Signs: 09:46 BP 156 / 86; Pulse 87; Resp 16; Temp 98.8(TE); Pulse Ox 97% on R/A; Weight 68.04 kg; ss Height 5 ft. 3 in. (160.02 cm); Pain 8/10; 09:46 Body Mass Index 26.57 (68.04 kg, 160.02 cm) ss MDM: 09:56 Patient medically screened. [facility] 10:14 Data reviewed: vital signs, nurses notes, lab test result(s), urinalysis. [facility] 09/05 10:08 Order name: Urine Dipstick-Ancillary (obtain specimen); Complete Time: 10:35 [facility] Administered Medications: No medications were administered Disposition: 09/05/18 10:15 Discharged to Home. Impression: Low back pain, Muscle spasm of back, Acute sinusitis. - Condition is Stable. - Discharge Instructions: Back Pain, Adult, Musculoskeletal Pain, Sinusitis, Adult, Back Injury Prevention, [id number], Sinusitis, Adult, [id number], Back Pain, Adult, [id number]. - Prescriptions for Tylenol- Codeine #3 300-30 mg Oral Tablet - take 2 tablet by ORAL route every 6 hours As needed; 30 tablet. Bactrim DS 800- 160 mg Oral Tablet - take 1 tablet by ORAL route every 12 hours for 7 days; 14 tablet. Cyclobenzaprine 5 mg Oral Tablet - take 1 tablet by ORAL route 3 times per day As needed; 15 tablet. - Medication Reconciliation Form, Thank You Letter, Antibiotic Education, Prescription Opioid Use form. - Follow up: Private Physician; When: 2 - 3 days; Reason: Recheck today's complaints, Continuance of care, Re-evaluation by your physician. - Problem is new. - Symptoms have improved. Signatures: Dispatcher [employer] EDChi Hopper MD MD cha Williams, Irene, RN Ashlee Locke RN RN ss Corrections: (The following items were deleted from the chart) 10:36 10:15 09/05/2018 10:15 Discharged to Home. Impression: Low back pain; Muscle spasm of iw back; Acute sinusitis. Condition is Stable. Forms are Medication Reconciliation Form, Thank You Letter, Antibiotic Education, Prescription Opioid Use. Follow up: Private Physician; When: 2 - 3 days; Reason: Recheck today's complaints, Continuance of care, Re-evaluation by your physician. Problem is new. Symptoms have improved. evelyn
[2018-09-05 10:49] VITALS: BP 156/86; TEMP 98.8; O2SAT 97
== END 2018-09-05 10:36 | disposition home or self-care (01) ==
LOC: ER 09:35
DX: M54.5 Low back pain (principal); M62.830 Muscle spasm of back; J01.90 Acute sinusitis, unspecified; I11.0 Hypertensive heart disease with heart failure; I50.9 Heart failure, unspecified; J44.9 Chronic obstructive pulmonary disease, unspecified
CPT/HCPCS: 99282

== ENCOUNTER 2018-09-16 10:18 | Emergency (ER) | payer OTHER ==
--- OUTSIDE RECORDS SUMMARY | 2018-09-16 10:21 | XMS REPORT ---
:1965 [facility] Address [address] [place] [address] Care Team Providers Name Role Phone Unavailable Unavailable Unavailable Problems This patient has no known problems. Allergies, Adverse Reactions, Alerts This patient has no known allergies or adverse reactions. Medications This patient has no known medications.
[2018-09-16] MEDS ORDERED: CEPHALEXIN 250 MG CAP ONE (11:37)
[2018-09-16] MEDS ORDERED: IBUPROFEN 400 MG TAB ONE (11:37)
--- NOTE | 2018-09-16 11:38 | EDPHYS ---
Physician Documentation [facility] Name: Charito Michael Age: 53 yrs Sex: Female : 1965 Arrival Date: 09/16/2018 Time: 10:20 Bed 20 Private MD: BUZZ Physician Chi Sanchez HPI: 09/16 11:28 This 53 yrs old Black Female presents to ER via Ambulatory with complaints of evelyn Toothache, Back Pain, Foot Pain. 11:28 The patient presents with lost tooth/teeth, pain, swelling. The problem is located in evelyn the lower left first bicuspid, lower left lateral incisor and lower right first bicuspid. Onset: The symptoms/episode began/occurred 2 week(s) ago. Duration: The symptoms are continuous, and are unchanged since they started. Modifying factors: The symptoms are alleviated by nothing, the symptoms are aggravated by chewing, food, talking. Associated signs and symptoms: The patient has no apparent associated signs or symptoms. Severity of symptoms: At their worst the symptoms were mild, moderate, in the emergency department the symptoms are unchanged. The patient has experienced similar episodes in the past, multiple times. Historical: - Allergies: 10:23 NKA; hj - PMHx: 10:23 Back pain; CHF; Chronic pain; COPD; HIV; Hypertension; seasonal allergies; hj - PSHx: 10:23 tumor removed from stomach; hj - Immunization history:: Adult Immunizations unknown. - Family history:: not pertinent. - Social history:: Smoking status: Patient/guardian denies using tobacco. - Ebola Screening: : No symptoms or risks identified at this time. ROS: 11:28 Constitutional: Negative for fever, chills, and weight loss, Eyes: Negative for injury, evelyn pain, redness, and discharge, Neck: Negative for injury, pain, and swelling, Cardiovascular: Negative for chest pain, palpitations, and edema, Respiratory: Negative for shortness of breath, cough, wheezing, and pleuritic chest pain, Abdomen/GI: Negative for abdominal pain, nausea, vomiting, diarrhea, and constipation, Back: Negative for injury and pain, : Negative for injury, bleeding, discharge, and swelling, MS/Extremity: Negative for injury and deformity, Skin: Negative for injury, rash, and discoloration, Neuro: Negative for headache, weakness, numbness, tingling, and seizure. 11:28 ENT: Positive for dental pain, Teeth pain 11:28 MS/extremity: Positive for pain, of the lateral aspect of right calf. Exam: 11:28 Constitutional: This is a well developed, well nourished patient who is awake, alert, evelyn and in no acute distress. Head/Face: Normocephalic, atraumatic. Eyes: Pupils equal round and reactive to light, extra-ocular motions intact. Lids and lashes normal. Conjunctiva and sclera are non-icteric and not injected. Cornea within normal limits. Periorbital areas with no swelling, redness, or edema. ENT: Nares patent. No nasal discharge, no septal abnormalities noted. Tympanic membranes are normal and external auditory canals are clear. Oropharynx with no redness, swelling, or masses, exudates, or evidence of obstruction, uvula midline. Mucous membranes moist. Neck: Trachea midline, no thyromegaly or masses palpated, and no cervical lymphadenopathy. Supple, full range of motion without nuchal rigidity, or vertebral point tenderness. No Meningismus. Chest/axilla: Normal chest wall appearance and motion. Nontender with no deformity. No lesions are appreciated. Cardiovascular: Regular rate and rhythm with a normal S1 and S2. No gallops, murmurs, or rubs. Normal PMI, no JVD. No pulse deficits. Respiratory: Lungs have equal breath sounds bilaterally, clear to auscultation and percussion. No rales, rhonchi or wheezes noted. No increased work of breathing, no retractions or nasal flaring. Abdomen/GI: Soft, non-tender, with normal bowel sounds. No distension or tympany. No guarding or rebound. No evidence of tenderness throughout. Back: No spinal tenderness. No costovertebral tenderness. Full range of motion. Skin: Warm, dry with normal turgor. Normal color with no rashes, no lesions, and no evidence of cellulitis. Neuro: Awake and alert, GCS 15, oriented to person, place, time, and situation. Cranial nerves II-XII grossly intact. Motor strength 5/5 in all extremities. Sensory grossly intact. Cerebellar exam normal. Normal gait. Psych: Awake, alert, with orientation to person, place and time. Behavior, mood, and affect are within normal limits. 11:28 Musculoskeletal/extremity: ROM: intact in all extremities, full active range of motion, full passive range of motion, Circulation is intact in all extremities. Sensation intact. Compartment Syndrome exam of affected extremity: is normal. Joints: All joints are normal except Weight bearing: able to fully bear weight, DVT Exam: No signs of deep vein thrombosis. no swelling, negative Homans' sign noted on exam, no appreciated bluish discoloration, no erythema, no increased warmth, pain, tenderness, no trauma , no stasis, no hc state. Vital Signs: 10:23 BP 153 / 97; Pulse 88; Resp 18; Temp 98.1(TE); Pulse Ox 100% on R/A; Weight 72.57 kg; hj Height 5 ft. 3 in. (160.02 cm); Pain 8/10; 11:47 BP 141 / 89; Pulse 81; Resp 18; Temp 97.6; Pulse Ox 99% on R/A; ph 10:23 Body Mass Index 28.34 (72.57 kg, 160.02 cm) hj MDM: 10:25 Patient medically screened. [facility] 11:35 Data reviewed: vital signs, nurses notes. evelyn Administered Medications: 11:41 Drug: KeFLEX 500 mg Route: PO; ph 11:48 Follow up: Response: No adverse reaction; Medication administered at discharge. ph 11:41 Drug: Motrin 400 mg Route: PO; ph 11:48 Follow up: Response: No adverse reaction; Medication administered at discharge. ph Disposition: 09/16/18 11:36 Discharged to Home. Impression: Dental caries, Dental alveolar anomalies, Pain in right lower leg - musculoskeletal pain. - Condition is Stable. - Discharge Instructions: Dental Pain, Musculoskeletal Pain, Dental Pain, [id number]. - Prescriptions for Keflex 500 mg Oral Capsule - take 1 capsule by ORAL route every 6 hours for 7 days; 28 capsule. Tylenol- Codeine #3 300-30 mg Oral Tablet - take 2 tablets by ORAL route every 6 hours As needed; 24 tablet. Motrin IB 200 mg Oral Tablet - take 2 tablet by ORAL route every 6 hours As needed as needed with food; 30 tablet. - Medication Reconciliation Form, Thank You Letter, Antibiotic Education, Prescription Opioid Use form. - Follow up: Private Physician; When: 2 - 3 days; Reason: Recheck today's complaints, Continuance of care, Re-evaluation by your physician. - Problem is new. - Symptoms have improved. Signatures: Chi Sanchez MD MD cha Hall, Patricia RN RN Virgil Holland, RN RN Corrections: (The following items were deleted from the chart) 11:48 11:36 09/16/2018 11:36 Discharged to Home. Impression: Dental caries; Dental alveolar ph anomalies; Pain in right lower leg - musculoskeletal pain. Condition is Stable. Forms are Medication Reconciliation Form, Thank You Letter, Antibiotic Education, Prescription Opioid Use. Follow up: Private Physician; When: 2 - 3 days; Reason: Recheck today's complaints, Continuance of care, Re-evaluation by your physician. Problem is new. Symptoms have improved. evelyn
--- NOTE | 2018-09-16 11:38 | ER ---
Nurse's Notes [facility] Name: Charito Michael Age: 53 yrs Sex: Female : 1965 Arrival Date: 09/16/2018 Time: 10:20 Bed 20 Private MD: Diagnosis: Dental caries;Dental alveolar anomalies;Pain in right lower leg-musculoskeletal pain Presentation: 09/16 10:21 Presenting complaint: Patient states: my tooth hurts and my back too since yesterday, hj my foot is hurting too; denies trauma to the area;. Transition of care: patient was not received from another setting of care. Onset of symptoms was September 16, 2018. Risk Assessment: Do you want to hurt yourself or someone else? Patient reports no desire to harm self or others. Initial Sepsis Screen: Does the patient meet any 2 criteria? No. Patient's initial sepsis screen is negative. Does the patient have a suspected source of infection? No. Patient's initial sepsis screen is negative. Care prior to arrival: None. 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 - Family history:: not pertinent. - Social history:: Smoking status: Patient/guardian denies using tobacco. - Ebola Screening: : No symptoms or risks identified at this time. Screenin:46 Abuse screen: Denies threats or abuse. Denies injuries from another. Nutritional ph screening: No deficits noted. Tuberculosis screening: No symptoms or risk factors identified. Fall Risk None identified. Assessment: 11:43 General: Appears in no apparent distress. comfortable, slender, Behavior is calm, ph cooperative, appropriate for age, Denies fever. Pain: Complains of pain in back and right leg and mouth. Neuro: Level of Consciousness is awake, alert, obeys commands, Oriented to person, place, time, situation. Cardiovascular: Capillary refill < 3 seconds in bilateral fingers Patient's skin is warm and dry. Respiratory: Airway is patent Respiratory effort is even, unlabored, Respiratory pattern is regular, symmetrical. GI: No signs and/or symptoms were reported involving the gastrointestinal system. EENT: Poor dentition noted. Derm: Skin is intact, is healthy with good turgor, Skin is pink, warm \T\ dry. Musculoskeletal: Circulation, motion, and sensation intact. Range of motion: intact in all extremities. Vital Signs: 10:23 BP 153 / 97; Pulse 88; Resp 18; Temp 98.1(TE); Pulse Ox 100% on R/A; Weight 72.57 kg; hj Height 5 ft. 3 in. (160.02 cm); Pain 8/10; 11:47 BP 141 / 89; Pulse 81; Resp 18; Temp 97.6; Pulse Ox 99% on R/A; ph 10:23 Body Mass Index 28.34 (72.57 kg, 160.02 cm) ED Course: 10:20 Patient arrived in ED. hj 10:22 Triage completed. hj 10:22 Arm band placed on right wrist. 10:25 Chi Sanchez MD is Attending Physician. [facility] 10:32 Becky Sewell, RN is Primary Nurse. ph 11:46 Patient has correct armband on for positive identification. Bed in low position. Call ph light in reach. Side rails up X 1. 11:47 No provider procedures requiring assistance completed. Patient did not have IV access ph during this emergency room visit. Administered Medications: 11:41 Drug: KeFLEX 500 mg Route: PO; ph 11:48 Follow up: Response: No adverse reaction; Medication administered at discharge. ph 11:41 Drug: Motrin 400 mg Route: PO; ph 11:48 Follow up: Response: No adverse reaction; Medication administered at discharge. ph Outcome: 11:36 Discharge ordered by . [facility] 11:48 Discharged to home ambulatory. ph 11:48 Condition: good 11:48 Discharge instructions given to patient, Instructed on discharge instructions, follow up and referral plans. medication usage, Demonstrated understanding of instructions, follow-up care, medications, Prescriptions given X 3. 11:48 Patient left the ED. ph Signatures: Chi Sanchez MD MD cha Hall, Patricia, RN RN Virgil Holland RN RN Corrections: (The following items were deleted from the chart) 10:24 10:21 Presenting complaint: Patient states: my tooth hurts and my back too, my foot is hj hurting too; denies trauma to the area; hj 10:24 10:23 Pulse 75bpm; Resp 18bpm; Pulse Ox 100% RA; Temp 98.1F Temporal; 72.57 kg; Height hj 5 ft. 3 in.; BMI: 28.3; Pain /; hj
[2018-09-16 11:59] VITALS: BP 141/89; TEMP 97.6; O2SAT 99
== END 2018-09-16 11:48 | disposition home or self-care (01) ==
LOC: ER 10:18
DX: K02.9 Dental caries, unspecified (principal); M26.70 Unspecified alveolar anomaly; M79.661 Pain in right lower leg; I11.0 Hypertensive heart disease with heart failure; I50.9 Heart failure, unspecified; J44.9 Chronic obstructive pulmonary disease, unspecified; B20 Human immunodeficiency virus [HIV] disease
CPT/HCPCS: 99283

== ENCOUNTER 2018-10-07 15:05 | Emergency (ER) | payer OTHER ==
--- NOTE | 2018-10-07 15:37 | EDPHYS ---
Physician Documentation [facility] Name: Charito Michael Age: 53 yrs Sex: Female : 1965 Arrival Date: 10/07/2018 Time: 15:12 Bed 5 Private MD: ED Physician Chi Sanchez HPI: 10/07 15:58 This 53 yrs old Black Female presents to ER via Ambulatory with complaints of Back Pain jr8 and sore thoat. 15:58 The symptoms are located in the low back. Onset: The symptoms/episode began/occurred jr8 gradually, 2 day(s) ago. The pain does not radiate. Associated signs and symptoms: Pertinent negatives: abdominal pain, constipation, dysuria, fever, headache, hematuria, incontinence, nausea, numbness, tingling, urinary retention, vomiting, weakness. The problem was sustained from unknown cause. Modifying factors: The patient symptoms are alleviated by nothing, the patient symptoms are aggravated by any movement. Severity of symptoms: At their worst the symptoms were mild, in the emergency department the symptoms are unchanged. The patient has experienced similar episodes in the past, several times. The patient has not recently seen a physician. Stated that she also has a sore throat. Historical: - Allergies: 15:14 NKA; la1 - Home Meds: 15:43 blood pressure pill, back pain pill, other pills [Active]; unknown medications, states jl7 she takes several [Active]; - PMHx: 15:14 CHF; Back pain; Chronic pain; COPD; HIV; Hypertension; seasonal allergies; la1 - Immunization history:: Adult Immunizations up to date. - Social history:: Smoking status: Patient/guardian denies using tobacco. - Ebola Screening: : No symptoms or risks identified at this time. ROS: 15:58 Eyes: Negative for injury, pain, redness, and discharge, Neck: Negative for injury, jr8 pain, and swelling, Cardiovascular: Negative for chest pain, palpitations, and edema, Respiratory: Negative for shortness of breath, cough, wheezing, and pleuritic chest pain, Abdomen/GI: Negative for abdominal pain, nausea, vomiting, diarrhea, and constipation, MS/Extremity: Negative for injury and deformity, Skin: Negative for injury, rash, and discoloration, Neuro: Negative for headache, weakness, numbness, tingling, and seizure. 15:58 ENT: Positive for sore throat, Negative for drainage from ear(s), ear pain, tinnitus, nasal discharge, rhinorrhea, sinus congestion, difficulty swallowing, difficulty handling secretions, hoarseness. 15:58 Back: Positive for pain at rest, pain with movement, of the low back area, Negative for radiated pain. Exam: 15:58 Eyes: Pupils equal round and reactive to light, extra-ocular motions intact. Lids and jr8 lashes normal. Conjunctiva and sclera are non-icteric and not injected. Cornea within normal limits. Periorbital areas with no swelling, redness, or edema. ENT: Nares patent. No nasal discharge, no septal abnormalities noted. Tympanic membranes are normal and external auditory canals are clear. Oropharynx with mild redness. Small patchy white areas noted to top of palate. No swelling, or masses, exudates, or evidence of obstruction, uvula midline. Mucous membranes moist. Neck: Trachea midline, no thyromegaly or masses palpated, and no cervical lymphadenopathy. Supple, full range of motion without nuchal rigidity, or vertebral point tenderness. No Meningismus. Cardiovascular: Regular rate and rhythm with a normal S1 and S2. No gallops, murmurs, or rubs. Normal PMI, no JVD. No pulse deficits. Respiratory: Lungs have equal breath sounds bilaterally, clear to auscultation and percussion. No rales, rhonchi or wheezes noted. No increased work of breathing, no retractions or nasal flaring. Abdomen/GI: Soft, non-tender, with normal bowel sounds. No distension or tympany. No guarding or rebound. No evidence of tenderness throughout. Skin: Warm, dry with normal turgor. Normal color with no rashes, no lesions, and no evidence of cellulitis. MS/ Extremity: Pulses equal, no cyanosis. Neurovascular intact. Full, normal range of motion. Neuro: Awake and alert, GCS 15, oriented to person, place, time, and situation. Cranial nerves II-XII grossly intact. Motor strength 5/5 in all extremities. Sensory grossly intact. Cerebellar exam normal. Normal gait. 15:58 Back: pain, that is mild, of the low back area, ROM is painful, with all movement, normal spinal alignment noted, CVA tenderness, is absent, vertebral tenderness, is not appreciated, muscle spasm, is not present. Vital Signs: 15:14 BP 148 / 78; Pulse 79; Resp 16; Temp 98.4; Pulse Ox 98% on R/A; Weight 63.5 kg; Height la1 5 ft. 3 in. (160.02 cm); 15:14 Body Mass Index 24.80 (63.50 kg, 160.02 cm) la1 MDM: 15:19 Patient medically screened. [facility] 15:34 Data reviewed: vital signs, nurses notes, and as a result, I will discharge patient. jr8 Data interpreted: Pulse oximetry: on room air is 98 %. Interpretation: normal. Counseling: I had a detailed discussion with the patient and/or guardian regarding: the historical points, exam findings, and any diagnostic results supporting the discharge/admit diagnosis, the need for outpatient follow up, a family practitioner, to return to the emergency department if symptoms worsen or persist or if there are any questions or concerns that arise at home. Administered Medications: No medications were administered Disposition: 20:37 Co-signature as Attending Physician, Chi Sanchez MD I agree with the assessment and [facility] plan of care. Disposition: 10/07/18 15:35 Discharged to Home. Impression: Candidal stomatitis, Low back pain. - Condition is Stable. - Discharge Instructions: Back Pain, Adult, Musculoskeletal Pain, Thrush, Adult, Back Exercises, [id number], Heat Therapy. - Prescriptions for Mobic 7.5 mg Oral Tablet - take 1 tablet by ORAL route once daily take with food; 20 tablet. Nystatin 100,000 unit/mL Oral Suspension - take 5 milliliters by ORAL route 4 times per day for 6 days; 120 milliliter. Skelaxin 800 mg Oral Tablet - take 1 tablet by ORAL route every 8 hours As needed; 30 tablet. - Medication Reconciliation Form, Thank You Letter, Antibiotic Education, Prescription Opioid Use form. - Follow up: Private Physician; When: 1 week; Reason: Recheck today's complaints, Continuance of care, Re-evaluation by your physician. - Problem is new. - Symptoms have improved. Signatures: Chi Sanchez MD MD cha Roszak, Josh, PA PA jr8 Jay Crane RN RN la1 Xiang Paz RN RN jl7 Corrections: (The following items were deleted from the chart) 15:44 15:35 10/07/2018 15:35 Discharged to Home. Impression: Candidal stomatitis; Low back jl7 pain. Condition is Stable. Forms are Medication Reconciliation Form, Thank You Letter, Antibiotic Education, Prescription Opioid Use. Follow up: Private Physician; When: 1 week; Reason: Recheck today's complaints, Continuance of care, Re-evaluation by your physician. Problem is new. Symptoms have improved. jr8
--- NOTE | 2018-10-07 15:37 | ER ---
Nurse's Notes [facility] Name: Charito Michael Age: 53 yrs Sex: Female : 1965 Arrival Date: 10/07/2018 Time: 15:12 Bed 5 Private MD: Diagnosis: Candidal stomatitis;Low back pain Presentation: 10/07 15:13 Presenting complaint: Patient states: my tonsils and back have been hurting for a week. la1 Transition of care: patient was not received from another setting of care. Onset of symptoms was October 07, 2018. Risk Assessment: Do you want to hurt yourself or someone else? Patient reports no desire to harm self or others. Initial Sepsis Screen: Does the patient meet any 2 criteria? No. Patient's initial sepsis screen is negative. Does the patient have a suspected source of infection? No. Patient's initial sepsis screen is negative. Care prior to arrival: None. 15:13 Method Of Arrival: Ambulatory la1 15:13 Acuity: GIULIANO 4 la1 Historical: - Allergies: 15:14 NKA; la1 - Home Meds: 15:43 blood pressure pill, back pain pill, other pills [Active]; unknown medications, states jl7 she takes several [Active]; - PMHx: 15:14 CHF; Back pain; Chronic pain; COPD; HIV; Hypertension; seasonal allergies; la1 - Immunization history:: Adult Immunizations up to date. - Social history:: Smoking status: Patient/guardian denies using tobacco. - Ebola Screening: : No symptoms or risks identified at this time. Screenin:27 Abuse screen: Denies threats or abuse. Denies injuries from another. Nutritional jl7 screening: No deficits noted. Tuberculosis screening: No symptoms or risk factors identified. Fall Risk None identified. Assessment: 15:27 General: Appears in no apparent distress. uncomfortable, Behavior is calm, cooperative, jl7 appropriate for age. Pain: Complains of pain in right ear, left ear, back and mouth Pain currently is 5 out of 10 on a pain scale. Pain began years ago. Is continuous. Neuro: Level of Consciousness is awake, alert, obeys commands, Oriented to person, place, time, situation. Cardiovascular: Patient's skin is warm and dry. Respiratory: Airway is patent Respiratory effort is even, unlabored, Respiratory pattern is regular, symmetrical. EENT: Tympanic membrane clear on left ear and right ear Ear canal clear on left ear and right ear Oral mucosa is moist. Poor dentition noted. Derm: Skin is pink, warm \T\ dry. Vital Signs: 15:14 BP 148 / 78; Pulse 79; Resp 16; Temp 98.4; Pulse Ox 98% on R/A; Weight 63.5 kg; Height la1 5 ft. 3 in. (160.02 cm); 15:14 Body Mass Index 24.80 (63.50 kg, 160.02 cm) la1 ED Course: 15:12 Patient arrived in ED. mr 15:13 Dimitri Sanchez PA is PHCP. jr8 15:13 Chi Sanchez MD is Attending Physician. jr8 15:14 Triage completed. la1 15:15 Arm band placed on left wrist. la1 15:19 Xiang Paz RN is Primary Nurse. jl7 15:27 Patient has correct armband on for positive identification. Bed in low position. Call jl7 light in reach. Side rails up X 1. 15:35 No provider procedures requiring assistance completed. Patient did not have IV access jl7 during this emergency room visit. Administered Medications: No medications were administered Outcome: 15:35 Discharge ordered by . jr8 15:43 Discharged to home ambulatory. jl7 15:43 Condition: stable 15:43 Discharge instructions given to patient, Instructed on discharge instructions, follow up and referral plans. medication usage, Demonstrated understanding of instructions, follow-up care, medications, Prescriptions given X 3. 15:44 Patient left the ED. jl7 Signatures: Sandi Rogers mr DainesilviaDimitri PA PA jr8 Jay Crane, RN RN la1 Xiang Paz RN RN jl7 Corrections: (The following items were deleted from the chart) 15:35 15:27 EENT: Tympanic membrane clear on left ear and right ear Ear canal clear on left jl7 ear and right ear Oral mucosa is moist. Poor dentition noted. [place] tongue noted. jl7
--- OUTSIDE RECORDS SUMMARY | 2018-10-07 15:44 | XMS REPORT ---
:1965 [facility] Address [address] [place] [address] Care Team Providers Name Role Phone Unavailable Unavailable Unavailable Problems This patient has no known problems. Allergies, Adverse Reactions, Alerts This patient has no known allergies or adverse reactions. Medications This patient has no known medications.
[2018-10-07 17:10] VITALS: BP 148/78; TEMP 98.4; O2SAT 98
== END 2018-10-07 15:44 | disposition home or self-care (01) ==
LOC: ER 15:05
DX: B37.0 Candidal stomatitis (principal); I10 Essential (primary) hypertension; Z21 Asymptomatic human immunodeficiency virus [HIV] infection status
CPT/HCPCS: 99282

== ENCOUNTER 2018-10-23 13:48 | Emergency (ER) | payer OTHER ==
--- OUTSIDE RECORDS SUMMARY | 2018-10-23 13:51 | XMS REPORT ---
:1965 [facility] Address [address] [place] [address] Care Team Providers Name Role Phone Unavailable Unavailable Unavailable Problems This patient has no known problems. Allergies, Adverse Reactions, Alerts This patient has no known allergies or adverse reactions. Medications This patient has no known medications.
[2018-10-23] MEDS ORDERED: IBUPROFEN 400 MG TAB ONE (16:26)
--- NOTE | 2018-10-23 18:19 | ER ---
Nurse's Notes [facility] Name: Charito Michael Age: 53 yrs Sex: Female : 1965 Arrival Date: 10/23/2018 Time: 13:50 Bed 9 Private MD: Diagnosis: Pain in left foot Presentation: 10/23 14:03 Presenting complaint: Patient states: left foot pain since Saturday, denies injury. iw Transition of care: patient was not received from another setting of care. Onset of symptoms was October 18, 2018. Risk Assessment: Do you want to hurt yourself or someone else? Patient reports no desire to harm self or others. Initial Sepsis Screen: Does the patient meet any 2 criteria? No. Patient's initial sepsis screen is negative. Does the patient have a suspected source of infection? No. Patient's initial sepsis screen is negative. Care prior to arrival: None. 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 - Social history:: Smoking status: Patient/guardian denies using tobacco. - Ebola Screening: : Patient negative for fever greater than or equal to 101.5 degrees Fahrenheit, and additional compatible Ebola Virus Disease symptoms Patient denies exposure to infectious person Patient denies travel to an Ebola-affected area in the 21 days before illness onset No symptoms or risks identified at this time. Screenin:27 Abuse screen: Denies threats or abuse. Denies injuries from another. Nutritional ss screening: No deficits noted. Tuberculosis screening: Never had TB. Fall Risk None identified. Assessment: 16:27 General: Appears in no apparent distress. comfortable, Behavior is calm, cooperative. ss Pain: Complains of pain in left foot. Neuro: Level of Consciousness is awake, alert, obeys commands, Oriented to person, place, time, situation. Cardiovascular: Capillary refill < 3 seconds is brisk in bilateral fingers. Respiratory: Respiratory effort is even, unlabored, Respiratory pattern is. Derm: Skin is pink, warm \T\ dry. normal. Musculoskeletal: Circulation, motion, and sensation intact. Range of motion: intact in all extremities, Swelling absent. 17:44 Reassessment: Patient appears in no apparent distress at this time. patient ambulated ss to restroom with mild limp. Vital Signs: 14:04 BP 174 / 98; Pulse 81; Resp 16; Temp 98.2; Pulse Ox 100% ; Weight 79.38 kg; Height 5 iw ft. 4 in. (162.56 cm); Pain 5/10; 14:04 Body Mass Index 30.04 (79.38 kg, 162.56 cm) iw ED Course: 13:50 Patient arrived in ED. rg4 14:04 Triage completed. iw 14:15 Arm band placed on. iw 16:07 Kelly Deleon, RN is Primary Nurse. iw 16:08 Chi Holder PA is PHCP. cp 16:08 Cyndee Ballard MD is Attending Physician. cp 16:27 Patient has correct armband on for positive identification. Bed in low position. Call ss light in reach. 18:09 XRAY Foot LEFT 3 View In Process Unspecified. EDMS 18:25 No provider procedures requiring assistance completed. Patient did not have IV access ss during this emergency room visit. Administered Medications: 16:27 Drug: Ibuprofen 800 mg Route: PO; ss 18:26 Follow up: Response: No adverse reaction; Pain is decreased ss Outcome: 18:18 Discharge ordered by MD. cp 18:25 Discharged to home ambulatory. ss 18:25 Condition: good 18:25 Discharge instructions given to patient, Instructed on discharge instructions, follow up and referral plans. Demonstrated understanding of instructions, follow-up care. 18:25 Patient left the ED. ss Signatures: Dispatcher [employer] EDKelly Sanders, RN HALLE Ashlee Gagnon RN RN ss Page, Corey, PA PA cp Garcia, Rubi rg4
--- NOTE | 2018-10-23 18:20 | EDPHYS ---
Physician Documentation [facility] Name: Charito Michael Age: 53 yrs Sex: Female : 1965 Arrival Date: 10/23/2018 Time: 13:50 Bed 9 Private MD: ED Physician Cyndee Ballard HPI: 10/23 16:15 This 53 yrs old Black Female presents to ER via Ambulatory with complaints of Foot Pain.cp 16:15 The patient presents with pain, that is acute. The complaints affect the lateral aspect cp of left foot. Onset: The symptoms/episode began/occurred 3 day(s) ago. 16:15 Context: resulted from an unknown cause, the patient can fully bear weight, the patient cp is able to ambulate. Modifying factors: the symptoms are aggravated by weight bearing. Associated signs and symptoms: Pertinent negatives calf tenderness, numbness, swelling. Treatment prior to arrival includes: no previous treatment. 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 - Social history:: Smoking status: Patient/guardian denies using tobacco. - Ebola Screening: : Patient negative for fever greater than or equal to 101.5 degrees Fahrenheit, and additional compatible Ebola Virus Disease symptoms Patient denies exposure to infectious person Patient denies travel to an Ebola-affected area in the 21 days before illness onset No symptoms or risks identified at this time. ROS: 16:20 Constitutional: Negative for body aches, chills, fever, poor PO intake. cp 16:20 Eyes: Negative for injury, pain, redness, and discharge. cp 16:20 MS/extremity: Positive for pain, tenderness, of the left foot, Negative for injury or cp acute deformity, decreased range of motion, paresthesias. 16:20 Cardiovascular: Negative for chest pain. cp 16:20 Respiratory: Negative for cough, shortness of breath, wheezing. 16:20 Back: Negative for pain at rest, pain with movement. 16:20 Skin: Negative for rash. 16:20 Neuro: Negative for numbness, weakness. 16:20 All other systems are negative. Exam: 16:25 Constitutional: The patient appears in no acute distress, alert, awake, non-toxic, well cp developed, well nourished. 16:25 Head/Face: Normocephalic, atraumatic. cp 16:25 Musculoskeletal/extremity: Extremities: grossly normal except: noted in the lateral cp aspect of left foot: pain, tenderness, There is no evidence of deformity, rash, swelling, Perfusion: the extremity is normally perfused throughout, Sensation intact. 16:25 Skin: cellulitis, is not appreciated, no rash present. Vital Signs: 14:04 BP 174 / 98; Pulse 81; Resp 16; Temp 98.2; Pulse Ox 100% ; Weight 79.38 kg; Height 5 iw ft. 4 in. (162.56 cm); Pain 5/10; 14:04 Body Mass Index 30.04 (79.38 kg, 162.56 cm) iw MDM: 16:11 Patient medically screened. cp 16:30 Differential diagnosis: closed fracture, tendonitis, sprain. cp 18:17 Data reviewed: vital signs, nurses notes, radiologic studies, plain films. cp 18:17 Test interpretation: by ED physician or midlevel provider: xrays of left foot negative cp for fracture. Counseling: I had a detailed discussion with the patient and/or guardian regarding: the historical points, exam findings, and any diagnostic results supporting the discharge/admit diagnosis, radiology results, to return to the emergency department if symptoms worsen or persist or if there are any questions or concerns that arise at home. Response to treatment: the patient's symptoms have mildly improved after treatment, and as a result, I will discharge patient. 10/23 16:11 Order name: XRAY Foot LEFT 3 View cp Administered Medications: 16:27 Drug: Ibuprofen 800 mg Route: PO; ss 18:26 Follow up: Response: No adverse reaction; Pain is decreased ss Disposition: 18:43 Co-signature as Attending Physician, Cyndee Ballard MD. ma2 Disposition: 10/23/18 18:18 Discharged to Home. Impression: Pain in left foot. - Condition is Stable. - Discharge Instructions: Foot Pain. - Prescriptions for Naprosyn 500 mg Oral Tablet - take 1 tablet by ORAL route 2 times per day take with food; 20 tablet. - Medication Reconciliation Form, Thank You Letter, Antibiotic Education, Prescription Opioid Use form. - Follow up: Private Physician; When: 2 - 3 days; Reason: Recheck today's complaints. - Problem is new. - Symptoms have improved. Signatures: Dispatcher [employer] Kelly Arauz RN RN iw Smirch, Shelby, RN RN ss Page, Corey, PA PA cp Alzahri, Mohammad, MD MD ma2 Corrections: (The following items were deleted from the chart) 18:25 18:18 10/23/2018 18:18 Discharged to Home. Impression: Pain in left foot. Condition is ss Stable. Forms are Medication Reconciliation Form, Thank You Letter, Antibiotic Education, Prescription Opioid Use. Follow up: Private Physician; When: 2 - 3 days; Reason: Recheck today's complaints. Problem is new. Symptoms have improved. cp
--- NOTE | 2018-10-23 18:33 | RAD REPORT ---
EXAM DESCRIPTION: RAD - Foot Left 3 View - 10/23/2018 6:05 pm CLINICAL HISTORY: Left Foot pain FINDINGS: No fracture or dislocation is seen. Hallux valgus deformity. Large plantar calcaneal spur. Osteoporosis
[2018-10-23 19:18] VITALS: BP 174/98; TEMP 98.2; O2SAT 100
== END 2018-10-23 18:25 | disposition home or self-care (01) ==
LOC: ER 13:48
DX: M79.672 Pain in left foot (principal)
CPT/HCPCS: 99283

== ENCOUNTER 2018-11-24 14:36 | Emergency (ER) | payer OTHER ==
--- NOTE | 2018-11-24 15:37 | EDPHYS ---
Physician Documentation [facility] Name: Charito Michael Age: 53 yrs Sex: Female : 1965 Arrival Date: 11/24/2018 Time: 14:37 Bed 10 Private MD: ED Physician Cyndee Ballard HPI: 11/24 15:34 This 53 yrs old Black Female presents to ER via Ambulatory with complaints of Foot ma2 Pain, Toothache, Sore Throat. 15:34 The patient presents with pain, that is chronic. The complaints affect the right foot. ma2 Onset: The symptoms/episode began/occurred gradually, 2 month(s) ago. Associated signs and symptoms: Pertinent negatives: fever, swelling, warmth, weakness. Severity of symptoms: At their worst the symptoms were very mild, in the emergency department the symptoms are unchanged. The patient has not experienced similar symptoms in the past. alsop has sore throat and cough dry . 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 - Social history:: Smoking status: unknown Patient uses Patient/guardian denies using alcohol, street drugs, The patient lives alone. - Ebola Screening: : No symptoms or risks identified at this time. - Family history:: not pertinent. - Hospitalizations: : No recent hospitalization is reported. ROS: 15:34 All other systems are negative. ma2 15:37 Constitutional: Negative for fever, chills, and weight loss. ma2 Exam: 15:34 Constitutional: This is a well developed, well nourished patient who is awake, alert, ma2 and in no acute distress. Head/Face: Normocephalic, atraumatic. Eyes: Pupils equal round and reactive to light, extra-ocular motions intact. Lids and lashes normal. Conjunctiva and sclera are non-icteric and not injected. Cornea within normal limits. Periorbital areas with no swelling, redness, or edema. ENT: red oropharynx, pthrewise Nares patent. No nasal discharge, no septal abnormalities noted. Tympanic membranes are normal and external auditory canals are clear. Oropharynx with no redness, swelling, or masses, exudates, or evidence of obstruction, uvula midline. Mucous membranes moist. Neck: Trachea midline, no thyromegaly or masses palpated, and no cervical lymphadenopathy. Supple, full range of motion without nuchal rigidity, or vertebral point tenderness. No Meningismus. Chest/axilla: Normal chest wall appearance and motion. Nontender with no deformity. No lesions are appreciated. Cardiovascular: Regular rate and rhythm with a normal S1 and S2. No gallops, murmurs, or rubs. Normal PMI, no JVD. No pulse deficits. Respiratory: Lungs have equal breath sounds bilaterally, clear to auscultation and percussion. No rales, rhonchi or wheezes noted. No increased work of breathing, no retractions or nasal flaring. Abdomen/GI: Soft, non-tender, with normal bowel sounds. No distension or tympany. No guarding or rebound. No evidence of tenderness throughout. Back: No spinal tenderness. No costovertebral tenderness. Full range of motion. Skin: Warm, dry with normal turgor. Normal color with no rashes, no lesions, and no evidence of cellulitis. MS/ Extremity: Pulses equal, no cyanosis. Neurovascular intact. Full, normal range of motion. Neuro: Awake and alert, GCS 15, oriented to person, place, time, and situation. Cranial nerves II-XII grossly intact. Motor strength 5/5 in all extremities. Sensory grossly intact. Cerebellar exam normal. Normal gait. Vital Signs: 14:55 BP 171 / 94; Pulse 79; Resp 16; Temp 97.4; Pulse Ox 97% ; Weight 47.63 kg; ss MDM: 15:28 Patient medically screened. ma2 15:34 Differential diagnosis: sprain, gout, pharyngitis. Data reviewed: vital signs, nurses ma2 notes. Counseling: I had a detailed discussion with the patient and/or guardian regarding: the historical points, exam findings, and any diagnostic results supporting the discharge/admit diagnosis, the presence of at least one elevated blood pressure reading (>120/80) during this emergency department visit, the need for outpatient follow up. Response to treatment: the patient's symptoms have markedly improved after treatment. 11/24 15:37 Order name: Splint: post op shoe; Complete Time: 15:44 ma2 Administered Medications: No medications were administered Disposition: 11/24/18 15:36 Discharged to Home. Impression: Acute pharyngitis. - Condition is Stable. - Discharge Instructions: Pharyngitis. - Prescriptions for Tylenol- Codeine #3 300-30 mg Oral Tablet - take 2 tablet by ORAL route every 6 hours As needed; 30 tablet. Zithromax Z- Luis Felipe 250 mg Oral Tablet - take 1 tablet by ORAL route as directed for 5 days Day 1 - take two (2) tablets one time. Day 2, 3, 4 , 5 take one (1) tablet once daily.; 6 tablet. Medrol (Luis Felipe) 4 mg Oral Tablets, Dose Pack - take 1 tablet by ORAL route as directed - follow package instructions; 1 packet. - Medication Reconciliation Form, Thank You Letter, Antibiotic Education, Prescription Opioid Use form. - Follow up: Private Physician; When: Tomorrow; Reason: Continuance of care. Signatures: Ashlee Gagnon, RN RN Cyndee Ballard MD MD ma2 Soren Jackson RN RN rv Corrections: (The following items were deleted from the chart) 15:45 15:36 11/24/2018 15:36 Discharged to Home. Impression: Acute pharyngitis. Condition is rv Stable. Forms are Medication Reconciliation Form, Thank You Letter, Antibiotic Education, Prescription Opioid Use. Follow up: Private Physician; When: Tomorrow; Reason: Continuance of care. maRose
--- NOTE | 2018-11-24 15:37 | ER ---
Nurse's Notes [facility] Name: Charito Michael Age: 53 yrs Sex: Female : 1965 Arrival Date: 11/24/2018 Time: 14:37 Bed 10 Private MD: Diagnosis: Acute pharyngitis Presentation: 11/24 14:54 Presenting complaint: Patient states: "MY FOOT, MY TONSILS, MY TOOTH AND MY BACK". ss Transition of care: patient was not received from another setting of care. Onset of symptoms is unknown. Risk Assessment: Do you want to hurt yourself or someone else? Patient reports no desire to harm self or others. Initial Sepsis Screen: Does the patient meet any 2 criteria? No. Patient's initial sepsis screen is negative. Does the patient have a suspected source of infection? No. Patient's initial sepsis screen is negative. Care prior to arrival: None. 14:54 Method Of Arrival: Ambulatory ss 14:54 Acuity: GIULIANO 4 ss Triage Assessment: 15:44 EENT: Reports pain. 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 - Social history:: Smoking status: unknown Patient uses Patient/guardian denies using alcohol, street drugs, The patient lives alone. - Ebola Screening: : No symptoms or risks identified at this time. - Family history:: not pertinent. - Hospitalizations: : No recent hospitalization is reported. Screenin:27 Abuse screen: Denies threats or abuse. Denies injuries from another. Nutritional rv screening: No deficits noted. Tuberculosis screening: No symptoms or risk factors identified. Fall Risk None identified. Assessment: 15:26 General: Appears in no apparent distress. comfortable, Behavior is calm, cooperative. rv Pain: Complains of pain in TOOTH, BACK, FOOT. Neuro: Level of Consciousness is awake, alert, obeys commands, Oriented to person, place, time, situation. Cardiovascular: Patient's skin is warm and dry. Respiratory: Airway is patent. GI: No signs and/or symptoms were reported involving the gastrointestinal system. : No signs and/or symptoms were reported regarding the genitourinary system. EENT: Poor dentition noted. Derm: Skin is intact. Musculoskeletal: Reports pain in FOOT, TOOTH, BACK. Vital Signs: 14:55 BP 171 / 94; Pulse 79; Resp 16; Temp 97.4; Pulse Ox 97% ; Weight 47.63 kg; ss ED Course: 14:37 Patient arrived in ED. as 14:55 Triage completed. ss 14:55 Arm band placed on. ss 15:10 Soren Jackson, RN is Primary Nurse. rv 15:27 Patient has correct armband on for positive identification. Bed in low position. Call rv light in reach. Side rails up X 1. Pulse ox on. NIBP on. 15:28 Cyndee Ballard MD is Attending Physician. ma 15:44 No provider procedures requiring assistance completed. Patient did not have IV access rv during this emergency room visit. Administered Medications: No medications were administered Outcome: 15:36 Discharge ordered by . ma2 15:44 Discharged to home ambulatory. rv 15:44 Condition: good 15:44 Discharge instructions given to patient, Instructed on discharge instructions, follow up and referral plans. medication usage, Demonstrated understanding of instructions, follow-up care, medications, Prescriptions given X 3. 15:45 Patient left the ED. rv Signatures: Isabel Abraham Shelby, RN RN Cyndee Ballard MD MD [facility] Soren Jackson RN RN rv
[2018-11-24 16:08] VITALS: BP 171/94; TEMP 97.4; O2SAT 97
== END 2018-11-24 15:45 | disposition home or self-care (01) ==
LOC: ER 14:36
DX: J02.9 Acute pharyngitis, unspecified (principal); I10 Essential (primary) hypertension; B20 Human immunodeficiency virus [HIV] disease
CPT/HCPCS: 99283

== ENCOUNTER 2019-01-07 09:23 | Emergency (ER) | payer OTHER ==
--- NOTE | 2019-01-07 10:00 | ER ---
Nurse's Notes [facility] Name: Charito Michael Age: 53 yrs Sex: Female : 1965 Arrival Date: 01/07/2019 Time: 09:25 Bed 20 Private MD: Diagnosis: Acute upper respiratory infection, unspecified;Dental Pain;Upper back pain Presentation: 01/07 09:30 Presenting complaint: Patient states: toothache since yesterday. aa5 09:30 Transition of care: patient was not received from another setting of care. Onset of aa5 symptoms was December 2018. Risk Assessment: Do you want to hurt yourself or someone else? Patient reports no desire to harm self or others. Initial Sepsis Screen: Does the patient meet any 2 criteria? No. Patient's initial sepsis screen is negative. Does the patient have a suspected source of infection? No. Patient's initial sepsis screen is negative. Care prior to arrival: None. 09:30 Acuity: GIULIANO 5 aa5 09:30 Method Of Arrival: Ambulatory aa5 Historical: - Allergies: 09:30 NKA; aa5 - PMHx: 09:30 Back pain; CHF; Chronic pain; COPD; HIV; Hypertension; seasonal allergies; aa5 - Social history:: Smoking status: Patient/guardian denies using tobacco. - Ebola Screening: : No symptoms or risks identified at this time. Screenin:05 Abuse screen: Denies threats or abuse. Nutritional screening: No deficits noted. la1 Tuberculosis screening: No symptoms or risk factors identified. Fall Risk None identified. Assessment: 10:05 General: Appears in no apparent distress. Behavior is calm, cooperative. Pain: la1 Complains of pain in mouth. Neuro: Level of Consciousness is awake, alert, obeys commands, Oriented to person, place, time, situation. Cardiovascular: Capillary refill < 3 seconds Patient's skin is warm and dry. Respiratory: Airway is patent Respiratory effort is even, unlabored, Respiratory pattern is regular, symmetrical. GI: No signs and/or symptoms were reported involving the gastrointestinal system. : No signs and/or symptoms were reported regarding the genitourinary system. EENT: Poor dentition noted. Vital Signs: 09:30 BP 196 / 97; Pulse 63; Resp 16 S; Temp 98.0(O); Pulse Ox 100% on R/A; aa5 10:06 BP 167 / 74; Pulse 74; Resp 16; Pulse Ox 98% on R/A; la1 ED Course: 09:25 Patient arrived in ED. rg4 09:26 Alexys Yarbrough MD is Attending Physician. kdr 09:30 Arm band placed on Patient placed in an exam room, on a stretcher. aa5 09:32 Jay Crane, RN is Primary Nurse. la1 09:41 Triage completed. aa5 10:06 Patient has correct armband on for positive identification. la1 10:06 No provider procedures requiring assistance completed. Patient did not have IV access la1 during this emergency room visit. Administered Medications: No medications were administered Outcome: :59 Discharge ordered by . kdr 10:06 Discharged to home ambulatory. la1 10:06 Condition: stable 10:06 Discharge instructions given to patient, Instructed on discharge instructions, follow up and referral plans. medication usage, Demonstrated understanding of instructions, follow-up care, medications, Prescriptions given X 2. 10:06 Patient left the ED. la1 Signatures: Alexys Yarbrough MD MD kdr Lynne Rowland, RN RN aa Jay Crane, RN RN la1 Quyen Vela rg4
--- NOTE | 2019-01-07 10:00 | EDPHYS ---
Physician Documentation [facility] Name: Charito Michael Age: 53 yrs Sex: Female : 1965 Arrival Date: 01/07/2019 Time: 09:25 Bed 20 Private MD: ED Physician Alexys Yarbrough HPI: 01/07 10:18 This 53 yrs old Black Female presents to ER via Ambulatory with complaints of Toothache.kdr 10:18 The patient presents with pain. The problem is located in the lower left third molar, kdr lower left second molar and lower left first molar. Onset: The symptoms/episode began/occurred gradually, 2 day(s) ago. Duration: The symptoms are continuous. Modifying factors: The symptoms are alleviated by nothing, the symptoms are aggravated by chewing. Associated signs and symptoms: The patient has no apparent associated signs or symptoms. Severity of symptoms: At their worst the symptoms were mild, in the emergency department the symptoms are unchanged. The patient has experienced similar episodes in the past, a few times. The patient has not recently seen a physician. Historical: - Allergies: 09:30 NKA; aa5 - PMHx: 09:30 Back pain; CHF; Chronic pain; COPD; HIV; Hypertension; seasonal allergies; aa5 - Social history:: Smoking status: Patient/guardian denies using tobacco. - Ebola Screening: : No symptoms or risks identified at this time. ROS: 10:18 Constitutional: Negative for fever, chills, and weight loss, Eyes: Negative for injury, kdr pain, redness, and discharge, ENT: Negative for injury, pain, and discharge, Neck: Negative for injury, pain, and swelling, Cardiovascular: Negative for chest pain, palpitations, and edema, Abdomen/GI: Negative for abdominal pain, nausea, vomiting, diarrhea, and constipation, Back: Negative for injury and pain, : Negative for injury, bleeding, discharge, and swelling, MS/Extremity: Negative for injury and deformity, Skin: Negative for injury, rash, and discoloration, Neuro: Negative for headache, weakness, numbness, tingling, and seizure activity. Psych: Negative for depression, anxiety, suicide ideation, homicidal ideation, and hallucinations, Allergy/Immunology: Negative for hives, rash, and allergies, Endocrine: Negative for neck swelling, polydipsia, polyuria, polyphagia, and marked weight changes, Hematologic/Lymphatic: Negative for swollen nodes, abnormal bleeding, and unusual bruising. 10:18 Respiratory: Positive for cough, Negative for dyspnea on exertion, hemoptysis, orthopnea, pleurisy, shortness of breath, sputum production, wheezing. Exam: 10:18 Constitutional: This is a well developed, well nourished patient who is awake, alert, kdr and in no acute distress. Head/Face: Normocephalic, atraumatic. Eyes: Pupils equal round and reactive to light, extra-ocular motions intact. Lids and lashes normal. Conjunctiva and sclera are non-icteric and not injected. Cornea within normal limits. Periorbital areas with no swelling, redness, or edema. Neck: Trachea midline, no thyromegaly or masses palpated, and no cervical lymphadenopathy. Supple, full range of motion without nuchal rigidity, or vertebral point tenderness. No Meningismus. Chest/axilla: Normal chest wall appearance and motion. Nontender with no deformity. No lesions are appreciated. Cardiovascular: Regular rate and rhythm with a normal S1 and S2. No gallops, murmurs, or rubs. Normal PMI, no JVD. No pulse deficits. Respiratory: Lungs have equal breath sounds bilaterally, clear to auscultation and percussion. No rales, rhonchi or wheezes noted. No increased work of breathing, no retractions or nasal flaring. Abdomen/GI: Soft, non-tender, with normal bowel sounds. No distension or tympany. No guarding or rebound. No evidence of tenderness throughout. Back: No spinal tenderness. No costovertebral tenderness. Full range of motion. Skin: Warm, dry with normal turgor. Normal color with no rashes, no lesions, and no evidence of cellulitis. MS/ Extremity: Pulses equal, no cyanosis. Neurovascular intact. Full, normal range of motion. Neuro: Awake and alert, GCS 15, oriented to person, place, time, and situation. Cranial nerves II-XII grossly intact. Motor strength 5/5 in all extremities. Sensory grossly intact. Cerebellar exam normal. Normal gait. Psych: Awake, alert, with orientation to person, place and time. Behavior, mood, and affect are within normal limits. 10:18 ENT: Mouth: Gums: pink, reddened, on the lower left third molar, lower left second molar and lower left first molar, Very poor dentition with only a few teeth left. The tenderness is to the dental ridge on the posterior mandible. Vital Signs: 09:30 BP 196 / 97; Pulse 63; Resp 16 S; Temp 98.0(O); Pulse Ox 100% on R/A; aa5 10:06 BP 167 / 74; Pulse 74; Resp 16; Pulse Ox 98% on R/A; la1 MDM: 09:59 Patient medically screened. kdr 10:18 Data reviewed: vital signs, nurses notes. Counseling: I had a detailed discussion with kdr the patient and/or guardian regarding: the historical points, exam findings, and any diagnostic results supporting the discharge/admit diagnosis, the need for outpatient follow up. Administered Medications: No medications were administered Disposition: 01/07/19 09:59 Discharged to Home. Impression: Acute upper respiratory infection, unspecified, Dental Pain, Upper back pain. - Condition is Stable. - Discharge Instructions: Upper Respiratory Infection, Adult, [id number]. - Prescriptions for Amoxicillin 500 mg Oral Capsule - take 1 capsule by ORAL route every 8 hours for 10 days; 30 tablet. Ibuprofen 600 mg Oral Tablet - take 1 tablet by ORAL route every 6 hours As needed take with food; 15 tablet. - Medication Reconciliation Form, Thank You Letter, Antibiotic Education form. - Follow up: Private Physician; When: 2 - 3 days; Reason: If symptoms return, Further diagnostic work-up, Recheck today's complaints, Continuance of care, Re-evaluation by your physician. - Problem is new. - Symptoms have improved. Signatures: Alexys Yarbrough MD MD kdr Lynne Rowland RN RN aa5 Jay Crane RN RN la1 Corrections: (The following items were deleted from the chart) 10:06 09:59 01/07/2019 09:59 Discharged to Home. Impression: Acute upper respiratory la1 infection, unspecified; Dental Pain; Upper back pain. Condition is Stable. Forms are Medication Reconciliation Form, Thank You Letter, Antibiotic Education, Prescription Opioid Use. Follow up: Private Physician; When: 2 - 3 days; Reason: If symptoms return, Further diagnostic work-up, Recheck today's complaints, Continuance of care, Re-evaluation by your physician. Problem is new. Symptoms have improved. kdr
[2019-01-07 10:15] VITALS: TEMP 98
[2019-01-07 10:16] VITALS: BP 167/74; O2SAT 98
== END 2019-01-07 10:06 | disposition home or self-care (01) ==
LOC: ER 09:23
DX: J06.9 Acute upper respiratory infection, unspecified (principal); M54.9 Dorsalgia, unspecified
CPT/HCPCS: 99282

== ENCOUNTER 2019-02-12 11:35 | Emergency (ER) | payer OTHER ==
--- NOTE | 2019-02-12 13:32 | ER ---
Nurse's Notes [facility] Name: Charito Michael Age: 53 yrs Sex: Female : 1965 Arrival Date: 02/12/2019 Time: 11:36 Bed 16 Private MD: Matt Khalil E Diagnosis: Acute pharyngitis;Low back pain Presentation: 02/12 11:52 Presenting complaint: Patient states: chronic mid back pain that has been ongoing. sv Transition of care: patient was not received from another setting of care. Onset of symptoms was 2000. Risk Assessment: Do you want to hurt yourself or someone else? Patient reports no desire to harm self or others. Initial Sepsis Screen: Does the patient meet any 2 criteria? No. Patient's initial sepsis screen is negative. Does the patient have a suspected source of infection? No. Patient's initial sepsis screen is negative. Care prior to arrival: None. 11:52 Method Of Arrival: Ambulatory sv 11:52 Acuity: GIULIANO 4 sv Triage Assessment: 11:54 General: Appears in no apparent distress. uncomfortable, Behavior is calm, cooperative, sv appropriate for age. Pain: Complains of pain in back Pain currently is 10 out of 10 on a pain scale. Neuro: Level of Consciousness is awake, alert, obeys commands, Gait is steady. Respiratory: Respiratory effort is even, unlabored, Respiratory pattern is regular, symmetrical. : Denies burning with urination, urinary frequency, urgency. Historical: - Allergies: 11:54 NKA; sv - PMHx: 11:54 Back pain; CHF; Chronic pain; COPD; HIV; Hypertension; seasonal allergies; sv - Immunization history:: Adult Immunizations up to date. - Social history:: Smoking status: . - Ebola Screening: : No symptoms or risks identified at this time. Screenin:17 Abuse screen: Denies threats or abuse. Denies injuries from another. Nutritional ch screening: No deficits noted. Tuberculosis screening: No symptoms or risk factors identified. Fall Risk None identified. Assessment: 12:17 Reassessment: Patient appears in no apparent distress at this time. Patient and/or ch family updated on plan of care and expected duration. Pain level reassessed. Patient is alert, oriented x 3, equal unlabored respirations, skin warm/dry/pink. General: Appears in no apparent distress. comfortable, Behavior is calm, cooperative, appropriate for age. Neuro: No deficits noted. Neuro: Level of Consciousness is awake, alert, obeys commands, Oriented to person, place, time, situation. Respiratory: Airway is patent Respiratory effort is even, unlabored. GI: No signs and/or symptoms were reported involving the gastrointestinal system. Derm: Skin is pink, warm \T\ dry. 13:06 Reassessment: Patient appears in no apparent distress at this time. Patient and/or family updated on plan of care and expected duration. Pain level reassessed. Patient is alert, oriented x 3, equal unlabored respirations, skin warm/dry/pink. 13:22 Reassessment: Patient appears in no apparent distress at this time. Vital Signs: 11:53 BP 151 / 89; Pulse 76; Resp 16; Temp 98.9; Pulse Ox 97% ; Weight 81.65 kg; Height 5 ft. sv 3 in. (160.02 cm); Pain 10/10; 11:53 Body Mass Index 31.89 (81.65 kg, 160.02 cm) sv ED Course: 11:36 Patient arrived in ED. as 11:36 Matt Khalil MD is Private Physician. as 11:52 Arm band placed on. sv 11:53 Triage completed. sv 11:59 Aleksandra Gong RN is Primary Nurse. ch 12:00 Alexys Yarbrough MD is Attending Physician. kdr 12:17 Patient has correct armband on for positive identification. Bed in low position. ch 12:17 No provider procedures requiring assistance completed. ch 13:06 Strep swab sent to lab. ch 13:20 Patient did not have IV access during this emergency room visit. ch 13:31 Matt Khalil MD is Referral Physician. kdr Administered Medications: No medications were administered Outcome: 13:32 Discharge ordered by . kdr 13:36 Discharged to home ambulatory. ch 13:36 Condition: stable 13:36 Discharge instructions given to patient, Instructed on discharge instructions, follow up and referral plans. medication usage, Demonstrated understanding of instructions, follow-up care, medications, Prescriptions given X 1. 13:36 Patient left the ED. Signatures: Aleksandra Gong RN RN ch Verde, Stephanie, RN RN Alexys Yarbrough MD MD kdr Isabel Abraham as
--- NOTE | 2019-02-12 13:33 | EDPHYS ---
Physician Documentation [facility] Name: Charito Michael Age: 53 yrs Sex: Female : 1965 Arrival Date: 02/12/2019 Time: 11:36 Bed 16 Private MD: Mtat Khalil E ED Physician Alexys Yarbrough HPI: 02/12 14:32 This 53 yrs old Black Female presents to ER via Ambulatory with complaints of Back kdr Pain, Sore Throat. 14:32 The patient presents with pain that is chronic, with no known mechanism of injury. The kdr symptoms are located in the low back. Onset: The symptoms/episode began/occurred at an unknown time. The pain does not radiate. Associated signs and symptoms: The patient has no apparent associated signs or symptoms. The problem was sustained from unknown cause. Modifying factors: The patient symptoms are alleviated by nothing, the patient symptoms are aggravated by any movement. Severity of symptoms: At their worst the symptoms were mild, in the emergency department the symptoms are unchanged. The patient has experienced similar episodes in the past, chronically. The patient has not recently seen a physician. 14:32 The patient also c/o sore throat. kdr Historical: - Allergies: 11:54 NKA; sv - PMHx: 11:54 Back pain; CHF; Chronic pain; COPD; HIV; Hypertension; seasonal allergies; sv - Immunization history:: Adult Immunizations up to date. - Social history:: Smoking status: . - Ebola Screening: : No symptoms or risks identified at this time. ROS: 14:32 Constitutional: Negative for fever, chills, and weight loss, Eyes: Negative for injury, kdr pain, redness, and discharge, Neck: Negative for injury, pain, and swelling, Cardiovascular: Negative for chest pain, palpitations, and edema, Respiratory: Negative for shortness of breath, cough, wheezing, and pleuritic chest pain, Abdomen/GI: Negative for abdominal pain, nausea, vomiting, diarrhea, and constipation, : Negative for injury, bleeding, discharge, and swelling, MS/Extremity: Negative for injury and deformity, Skin: Negative for injury, rash, and discoloration, Neuro: Negative for headache, weakness, numbness, tingling, and seizure activity. Psych: Negative for depression, anxiety, suicide ideation, homicidal ideation, and hallucinations, Allergy/Immunology: Negative for hives, rash, and allergies, Endocrine: Negative for neck swelling, polydipsia, polyuria, polyphagia, and marked weight changes, Hematologic/Lymphatic: Negative for swollen nodes, abnormal bleeding, and unusual bruising. 14:32 Back: Positive for pain at rest, pain with movement, Negative for injury or acute deformity. Exam: 14:32 Constitutional: This is a well developed, well nourished patient who is awake, alert, kdr and in no acute distress. Head/Face: Normocephalic, atraumatic. Eyes: Pupils equal round and reactive to light, extra-ocular motions intact. Lids and lashes normal. Conjunctiva and sclera are non-icteric and not injected. Cornea within normal limits. Periorbital areas with no swelling, redness, or edema. ENT: Nares patent. No nasal discharge, no septal abnormalities noted. Tympanic membranes are normal and external auditory canals are clear. Oropharynx with no redness, swelling, or masses, exudates, or evidence of obstruction, uvula midline. Mucous membranes moist. Neck: Trachea midline, no thyromegaly or masses palpated, and no cervical lymphadenopathy. Supple, full range of motion without nuchal rigidity, or vertebral point tenderness. No Meningismus. Chest/axilla: Normal chest wall appearance and motion. Nontender with no deformity. No lesions are appreciated. Cardiovascular: Regular rate and rhythm with a normal S1 and S2. No gallops, murmurs, or rubs. Normal PMI, no JVD. No pulse deficits. Respiratory: Lungs have equal breath sounds bilaterally, clear to auscultation and percussion. No rales, rhonchi or wheezes noted. No increased work of breathing, no retractions or nasal flaring. Abdomen/GI: Soft, non-tender, with normal bowel sounds. No distension or tympany. No guarding or rebound. No evidence of tenderness throughout. Back: No spinal tenderness. No costovertebral tenderness. Full range of motion. Skin: Warm, dry with normal turgor. Normal color with no rashes, no lesions, and no evidence of cellulitis. MS/ Extremity: Pulses equal, no cyanosis. Neurovascular intact. Full, normal range of motion. Neuro: Awake and alert, GCS 15, oriented to person, place, time, and situation. Cranial nerves II-XII grossly intact. Motor strength 5/5 in all extremities. Sensory grossly intact. Cerebellar exam normal. Normal gait. Psych: Awake, alert, with orientation to person, place and time. Behavior, mood, and affect are within normal limits. Vital Signs: 11:53 BP 151 / 89; Pulse 76; Resp 16; Temp 98.9; Pulse Ox 97% ; Weight 81.65 kg; Height 5 ft. sv 3 in. (160.02 cm); Pain 10/10; 11:53 Body Mass Index 31.89 (81.65 kg, 160.02 cm) sv MDM: 13:32 Patient medically screened. kdr 14:32 Data reviewed: vital signs, nurses notes, lab test result(s), radiologic studies. kdr Counseling: I had a detailed discussion with the patient and/or guardian regarding: the historical points, exam findings, and any diagnostic results supporting the discharge/admit diagnosis, lab results, radiology results, the need for outpatient follow up. 02/12 12:55 Order name: Strep hb Administered Medications: No medications were administered Disposition: 02/12/19 13:32 Discharged to Home. Impression: Acute pharyngitis, Low back pain. - Condition is Stable. - Discharge Instructions: Pharyngitis, Back Pain, Adult, [id number]. - Prescriptions for Ibuprofen 600 mg Oral Tablet - take 1 tablet by ORAL route every 6 hours As needed take with food; 30 tablet. - Medication Reconciliation Form, Thank You Letter form. - Follow up: Matt Khalil MD; When: 2 - 3 days; Reason: If symptoms return, Further diagnostic work-up, Recheck today's complaints, Continuance of care, Re-evaluation by your physician. - Problem is new. - Symptoms have improved. Signatures: Dispatcher [employer] EDMS Aleksandra Gong RN RN Becky Collins RN RN Alexys Timmons MD MD [facility] Corrections: (The following items were deleted from the chart) 13:36 13:32 02/12/2019 13:32 Discharged to Home. Impression: Acute pharyngitis; Low back ch pain. Condition is Stable. Forms are Medication Reconciliation Form, Thank You Letter, Antibiotic Education, Prescription Opioid Use. Follow up: Matt Khalil; When: 2 - 3 days; Reason: If symptoms return, Further diagnostic work-up, Recheck today's complaints, Continuance of care, Re-evaluation by your physician. Problem is new. Symptoms have improved. kdr
[2019-02-12 13:48] VITALS: BP 151/89; TEMP 98.9; O2SAT 97
== END 2019-02-12 13:36 | disposition home or self-care (01) ==
LOC: ER 11:35
DX: J02.9 Acute pharyngitis, unspecified (principal); I10 Essential (primary) hypertension; Z21 Asymptomatic human immunodeficiency virus [HIV] infection status
CPT/HCPCS: 87070; 87081; 99283

== ENCOUNTER 2019-05-04 13:57 | Emergency (ER) | payer OTHER ==
--- OUTSIDE RECORDS SUMMARY | 2019-05-04 13:59 | XMS REPORT ---
:1965 Author Organization [facility] Address [address] [place] [address] Care Team Providers Name Role Phone Unavailable Unavailable Unavailable Problems This patient has no known problems. Allergies, Adverse Reactions, Alerts This patient has no known allergies or adverse reactions. Medications This patient has no known medications.
--- NOTE | 2019-05-04 14:36 | ER ---
Nurse's Notes [facility] Name: Charito Michael Age: 54 yrs Sex: Female : 1965 Arrival Date: 05/04/2019 Time: 14:01 Bed 24 Private MD: Diagnosis: Acute pharyngitis Presentation: 05/03 14:03 Chief complaint: Patient states: cough x 2 weeks, productive. Denies congestion and ca1 fever. Reports upper back pain, more in the middle. Coronavirus screen: Patient reports a subjective fever or greater than 100.4F, or cough, or shortness of breath, or difficulty breathing. Patient denies travel on a cruise ship or to a country the [facility] currently lists as an affected area. Patient denies contact with known and/or suspected case of COVID-19. Ebola Screen: Patient negative for fever greater than or equal to 101.5 degrees Fahrenheit, and additional compatible Ebola Virus Disease symptoms Patient denies exposure to infectious person. Patient denies travel to an Ebola-affected area in the 21 days before illness onset. No symptoms or risks identified at this time. Initial Sepsis Screen: Does the patient meet any 2 criteria? No. Patient's initial sepsis screen is negative. Does the patient have a suspected source of infection? No. Patient's initial sepsis screen is negative. Risk Assessment: Do you want to hurt yourself or someone else? Patient reports no desire to harm self or others. Onset of symptoms was May 04, 2019. 14:03 Method Of Arrival: Ambulatory ca1 14:03 Acuity: GIULIANO 3 ca1 Historical: - Allergies: 14:06 NKA; ca1 - PMHx: 14:06 Back pain; CHF; Chronic pain; COPD; HIV; Hypertension; seasonal allergies; ca1 - PSHx: 14:06 None; ca1 - Immunization history:: Adult Immunizations up to date, Flu vaccine is up to date. - Social history:: Smoking status: Patient denies any tobacco usage or history of. Patient/guardian denies using alcohol, street drugs, The patient lives with spouse. - Family history:: not pertinent. Screenin:30 Abuse screen: Denies threats or abuse. Denies injuries from another. Nutritional wh screening: No deficits noted. Tuberculosis screening: No symptoms or risk factors identified. Fall Risk None identified. Assessment: 14:30 General: Appears in no apparent distress. Behavior is calm, cooperative, appropriate wh for age. Pain: Complains of pain in back Pain does not radiate. Pain currently is 3 out of 10 on a pain scale. Quality of pain is described as aching. Neuro: Level of Consciousness is awake, alert, obeys commands, Oriented to person, place, time, situation, Appropriate for age. Cardiovascular: Heart tones S1 S2. Respiratory: Reports cough that is Airway is patent Respiratory effort is even, unlabored, Respiratory pattern is regular, symmetrical, Breath sounds are clear bilaterally. GI: Abdomen is flat, non-distended. : No signs and/or symptoms were reported regarding the genitourinary system. EENT: Throat is pink. Derm: Skin is intact, is healthy with good turgor, Skin is pink, warm \T\ dry. normal. Musculoskeletal: Circulation, motion, and sensation intact. Vital Signs: 14:03 BP 123 / 82; Pulse 81; Resp 17 S; Temp 97.7(O); Pulse Ox 99% on R/A; Weight 68.04 kg ca1 (R); Height 5 ft. 3 in. (160.02 cm) (R); Pain 5/10; 14:03 Body Mass Index 26.57 (68.04 kg, 160.02 cm) ca1 ED Course: 14:01 Patient arrived in ED. mr 14:05 Triage completed. ca1 14:06 Arm band placed on right wrist. ca1 14:09 Tone Diehl, HALLE is Primary Nurse. ll1 14:10 Aneglita Foote is Primary Nurse. 14:15 Cyndee Ballard MD is Attending Physician. ma2 14:40 Patient has correct armband on for positive identification. Bed in low position. Call light in reach. Side rails up X 1. Pulse ox on. NIBP on. 14:55 No provider procedures requiring assistance completed. Patient did not have IV access during this emergency room visit. Administered Medications: No medications were administered Outcome: 14:35 Discharge ordered by . ma2 14:56 Discharged to home ambulatory, with family. 14:56 Condition: stable 14:56 Discharge instructions given to patient, family, Instructed on discharge instructions, follow up and referral plans. medication usage, POC Demonstrated understanding of instructions, follow-up care, medications, POC Prescriptions given X 2. 14:56 Patient left the ED. Signatures: Sandi oRgers mr Qamar, Angelita Cyndee Ballard MD MD ma2 Jeanine Doran RN RN ca1 Tone Diehl RN RN ll1
--- NOTE | 2019-05-04 14:37 | EDPHYS ---
Physician Documentation [facility] Name: Charito Michael Age: 54 yrs Sex: Female : 1965 Arrival Date: 05/04/2019 Time: 14:01 Bed 24 Private MD: ED Physician Cyndee Ballard HPI: 05/03 14:33 This 54 yrs old Black Female presents to ER via Ambulatory with complaints of Cough, ma2 Back Pain. 14:33 The patient or guardian reports cough. Severity of symptoms: At their worst the ma2 symptoms were very mild, in the emergency department the symptoms are unchanged. Associated signs and symptoms: Pertinent negatives: chest pain, ear ache, fever, nausea, rhinorrhea, sore throat, vomiting, no fever. The patient has experienced similar episodes in the past. Historical: - Allergies: 14:06 NKA; ca1 - PMHx: 14:06 Back pain; CHF; Chronic pain; COPD; HIV; Hypertension; seasonal allergies; ca1 - PSHx: 14:06 None; ca1 - Immunization history:: Adult Immunizations up to date, Flu vaccine is up to date. - Social history:: Smoking status: Patient denies any tobacco usage or history of. Patient/guardian denies using alcohol, street drugs, The patient lives with spouse. - Family history:: not pertinent. ROS: 14:33 Constitutional: Negative for fever, chills, and weight loss. ma2 14:33 All other systems are negative. Exam: 14:33 Constitutional: This is a well developed, well nourished patient who is awake, alert, ma2 and in no acute distress. Head/Face: Normocephalic, atraumatic. ENT: Nares patent. No nasal discharge, no septal abnormalities noted. Tympanic membranes are normal and external auditory canals are clear. Oropharynx with no redness, swelling, or masses, exudates, or evidence of obstruction, uvula midline. Mucous membranes moist. Neck: Trachea midline, no thyromegaly or masses palpated, and no cervical lymphadenopathy. Supple, full range of motion without nuchal rigidity, or vertebral point tenderness. No Meningismus. Chest/axilla: Normal chest wall appearance and motion. Nontender with no deformity. No lesions are appreciated. Cardiovascular: Regular rate and rhythm with a normal S1 and S2. No gallops, murmurs, or rubs. Normal PMI, no JVD. No pulse deficits. Respiratory: Lungs have equal breath sounds bilaterally, clear to auscultation and percussion. No rales, rhonchi or wheezes noted. No increased work of breathing, no retractions or nasal flaring. Abdomen/GI: Soft, non-tender, with normal bowel sounds. No distension or tympany. No guarding or rebound. No evidence of tenderness throughout. Skin: Warm, dry with normal turgor. Normal color with no rashes, no lesions, and no evidence of cellulitis. MS/ Extremity: Pulses equal, no cyanosis. Neurovascular intact. Full, normal range of motion. Neuro: Awake and alert, GCS 15, oriented to person, place, time, and situation. Cranial nerves II-XII grossly intact. Motor strength 5/5 in all extremities. Sensory grossly intact. Cerebellar exam normal. Normal gait. Vital Signs: 14:03 BP 123 / 82; Pulse 81; Resp 17 S; Temp 97.7(O); Pulse Ox 99% on R/A; Weight 68.04 kg ca1 (R); Height 5 ft. 3 in. (160.02 cm) (R); Pain 5/10; 14:03 Body Mass Index 26.57 (68.04 kg, 160.02 cm) ca1 MDM: 14:15 Patient medically screened. ma2 14:33 Differential Diagnosis: Bronchitis Upper Respiratory Infection Sinusitis. Data ma2 reviewed: vital signs, nurses notes. Counseling: I had a detailed discussion with the patient and/or guardian regarding: the historical points, exam findings, and any diagnostic results supporting the discharge/admit diagnosis, the presence of at least one elevated blood pressure reading (>120/80) during this emergency department visit, the need for outpatient follow up. Response to treatment: the patient's symptoms have markedly improved after treatment. Administered Medications: No medications were administered Disposition: 05/04/19 14:35 Discharged to Home. Impression: Acute pharyngitis. - Condition is Stable. - Discharge Instructions: Pharyngitis. - Prescriptions for Cyclobenzaprine 10 mg Oral Tablet - take 1 tablet by ORAL route every 8 hours As needed; 30 tablet. Zithromax Z- Luis Felipe 250 mg Oral Tablet - take 1 tablet by ORAL route as directed for 5 days Day 1 - take two (2) tablets one time. Day 2, 3, 4 , 5 take one (1) tablet once daily.; 6 tablet. - Medication Reconciliation Form, Thank You Letter, Antibiotic Education, Prescription Opioid Use form. - Follow up: Private Physician; When: Tomorrow; Reason: Continuance of care. Signatures: Angelita Foote Mohammad, MD MD ma2 Jeanine Doran RN RN ca1 Corrections: (The following items were deleted from the chart) 14:56 14:35 05/04/2019 14:35 Discharged to Home. Impression: Acute pharyngitis. Condition is wh Stable. Forms are Medication Reconciliation Form, Thank You Letter, Antibiotic Education, Prescription Opioid Use. Follow up: Private Physician; When: Tomorrow; Reason: Continuance of care. yasir
[2019-05-04 15:12] VITALS: BP 123/82; TEMP 97.7; O2SAT 99
== END 2019-05-04 14:56 | disposition home or self-care (01) ==
LOC: ER 13:57
DX: J02.9 Acute pharyngitis, unspecified (principal); I10 Essential (primary) hypertension; Z21 Asymptomatic human immunodeficiency virus [HIV] infection status
CPT/HCPCS: 99283

== ENCOUNTER 2019-08-10 11:57 | Emergency (ER) | payer OTHER ==
--- NOTE | 2019-08-10 12:40 | ER ---
Nurse's Notes [facility] Name: Charito Micahel Age: 54 yrs Sex: Female : 1965 Arrival Date: 08/10/2019 Time: 12:01 Bed 19 Private MD: Diagnosis: Abdominal tenderness Presentation: 08/09 12:11 Chief complaint: Patient states: she went to [facility] last week on 08/01/19 and her sv hamburger had a fly and she ate it and is now c/o abd pain. c/o vomiting last week. Coronavirus screen: Proceed with normal triage. Patient denies a cough. Patient denies shortness of breath or difficulty breathing. Patient denies measured and/or subjective temperature greater than 100.4F prior to today's visit. Patient denies travel on a cruise ship or to a country the [facility] currently lists as an affected area. Patient denies contact with known and/or suspected case of COVID-19. Ebola Screen: No symptoms or risks identified at this time. Risk Assessment: Do you want to hurt yourself or someone else? Patient reports no desire to harm self or others. Onset of symptoms was August 01, 2019. 12:11 Method Of Arrival: Ambulatory sv 12:11 Acuity: GIULIANO 3 sv 12:13 Initial Sepsis Screen: Does the patient meet any 2 criteria? No. Patient's initial sv sepsis screen is negative. Does the patient have a suspected source of infection? Yes: Acute abdominal pain. Triage Assessment: 12:15 General: Appears in no apparent distress. comfortable, Behavior is calm, cooperative, sv appropriate for age. Pain: Complains of pain in abdomen. Neuro: Level of Consciousness is awake, alert, obeys commands, Oriented to person, place, time, situation, Appropriate for age Gait is steady. GI: Reports lower abdominal pain, upper abdominal pain, vomiting. Historical: - Allergies: 12:13 NKA; sv - PMHx: 12:13 Back pain; CHF; Chronic pain; COPD; HIV; Hypertension; seasonal allergies; sv - PSHx: 12:13 None; sv - Immunization history:: Adult Immunizations. - Social history:: Smoking status: Patient denies any tobacco usage or history of. - Family history:: not pertinent. Screenin:47 Abuse screen: Denies threats or abuse. Nutritional screening: No deficits noted. Tuberculosis screening: No symptoms or risk factors identified. Fall Risk None identified. Assessment: 12:35 General: Appears in no apparent distress. Behavior is cooperative. Pain: Complains of pain in abdomen. Neuro: Level of Consciousness is awake, alert, Oriented to person, place, time, situation. Cardiovascular: Capillary refill < 3 seconds Patient's skin is warm and dry. Respiratory: Airway is patent Respiratory effort is even, unlabored. GI: Bowel sounds present X 4 quads. Abd is soft and non tender Reports nausea. Derm: Skin is intact, is healthy with good turgor. Vital Signs: 12:13 BP 121 / 84; Pulse 63; Resp 16; Temp 97; Pulse Ox 100% ; Weight 81.65 kg; Height 5 ft. sv 3 in. (160.02 cm); 12:13 Body Mass Index 31.89 (81.65 kg, 160.02 cm) ED Course: 12:01 Patient arrived in ED. mr 12:11 Arm band placed on. 12:12 Triage completed. 12:16 Chi Sanchez MD is Attending Physician. [facility] 12:16 Ling Hooks, RN is Primary Nurse. 12:47 Patient has correct armband on for positive identification. Bed in low position. Call light in reach. 12:48 No provider procedures requiring assistance completed. Patient did not have IV access during this emergency room visit. Administered Medications: No medications were administered Outcome: 12:38 Discharge ordered by . [facility] 12:45 Discharged to home ambulatory. 12:45 Condition: good 12:45 Discharge instructions given to patient, Instructed on discharge instructions, follow up and referral plans. Demonstrated understanding of instructions, follow-up care. 12:48 Patient left the ED. Signatures: Becky Ulloa, RN RN Chi Sanchez MD MD cha Rivera, Mary mr Ling Hooks, RN RN
--- NOTE | 2019-08-10 12:40 | EDPHYS ---
Physician Documentation [facility] Name: Charito Michael Age: 54 yrs Sex: Female : 1965 Arrival Date: 08/10/2019 Time: 12:01 Bed 19 Private MD: BUZZ Physician Chi Sanchez HPI: 08/09 12:30 This 54 yrs old Black Female presents to ER via Ambulatory with complaints of Abdominal evelyn Pain after eating a fly. 12:30 The patient presents with abdominal pain in the upper abdomen. Onset: The evelyn symptoms/episode began/occurred 1 day(s) ago. The symptoms do not radiate. Associated signs and symptoms: none. The symptoms are described as crampy, resolved. Modifying factors: The symptoms are alleviated by nothing, the symptoms are aggravated by nothing. Severity of pain: At its worst the pain was mild in the emergency department the pain has resolved and did so earlier today. The patient has not experienced similar symptoms in the past. Historical: - Allergies: 12:13 NKA; sv - PMHx: 12:13 Back pain; CHF; Chronic pain; COPD; HIV; Hypertension; seasonal allergies; sv - PSHx: 12:13 None; sv - Immunization history:: Adult Immunizations. - Social history:: Smoking status: Patient denies any tobacco usage or history of. - Family history:: not pertinent. ROS: 12:32 Constitutional: Negative for fever, chills, and weight loss, Eyes: Negative for injury, evelyn pain, redness, and discharge, ENT: Negative for injury, pain, and discharge, Neck: Negative for injury, pain, and swelling, Cardiovascular: Negative for chest pain, palpitations, and edema, Respiratory: Negative for shortness of breath, cough, wheezing, and pleuritic chest pain, Back: Negative for injury and pain, : Negative for injury, bleeding, discharge, and swelling, MS/Extremity: Negative for injury and deformity, Skin: Negative for injury, rash, and discoloration, Neuro: Negative for headache, weakness, numbness, tingling, and seizure, Psych: Negative for depression, anxiety, suicide ideation, homicidal ideation, and hallucinations, Allergy/Immunology: Negative for hives, rash, and allergies, Endocrine: Negative for neck swelling, polydipsia, polyuria, polyphagia, and marked weight changes, Hematologic/Lymphatic: Negative for swollen nodes, abnormal bleeding, and unusual bruising. 12:32 Abdomen/GI: Positive for abdominal cramps. Exam: 12:32 Constitutional: This is a well developed, well nourished patient who is awake, alert, evelyn and in no acute distress. Head/Face: Normocephalic, atraumatic. Eyes: Pupils equal round and reactive to light, extra-ocular motions intact. Lids and lashes normal. Conjunctiva and sclera are non-icteric and not injected. Cornea within normal limits. Periorbital areas with no swelling, redness, or edema. ENT: Nares patent. No nasal discharge, no septal abnormalities noted. Tympanic membranes are normal and external auditory canals are clear. Oropharynx with no redness, swelling, or masses, exudates, or evidence of obstruction, uvula midline. Mucous membranes moist. Neck: Trachea midline, no thyromegaly or masses palpated, and no cervical lymphadenopathy. Supple, full range of motion without nuchal rigidity, or vertebral point tenderness. No Meningismus. Chest/axilla: Normal chest wall appearance and motion. Nontender with no deformity. No lesions are appreciated. Cardiovascular: Regular rate and rhythm with a normal S1 and S2. No gallops, murmurs, or rubs. Normal PMI, no JVD. No pulse deficits. Respiratory: Lungs have equal breath sounds bilaterally, clear to auscultation and percussion. No rales, rhonchi or wheezes noted. No increased work of breathing, no retractions or nasal flaring. Abdomen/GI: Soft, non-tender, with normal bowel sounds. No distension or tympany. No guarding or rebound. No evidence of tenderness throughout. Back: No spinal tenderness. No costovertebral tenderness. Full range of motion. Skin: Warm, dry with normal turgor. Normal color with no rashes, no lesions, and no evidence of cellulitis. MS/ Extremity: Pulses equal, no cyanosis. Neurovascular intact. Full, normal range of motion. Neuro: Awake and alert, GCS 15, oriented to person, place, time, and situation. Cranial nerves II-XII grossly intact. Motor strength 5/5 in all extremities. Sensory grossly intact. Cerebellar exam normal. Normal gait. Psych: Awake, alert, with orientation to person, place and time. Behavior, mood, and affect are within normal limits. Vital Signs: 12:13 BP 121 / 84; Pulse 63; Resp 16; Temp 97; Pulse Ox 100% ; Weight 81.65 kg; Height 5 ft. sv 3 in. (160.02 cm); 12:13 Body Mass Index 31.89 (81.65 kg, 160.02 cm) sv MDM: 12:16 Patient medically screened. evelyn 12:33 Data reviewed: vital signs, nurses notes. [facility] 12:39 Differential diagnosis: bowel obstruction, gastroesophageal reflux disease, evelyn non-specific abd pain, Peptic Ulcer Disease. Data interpreted: optical laboratory mechanic: not applicable for this patient encounter. rate is 63 beats/min, Pulse oximetry: on room air is 100 %. 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 ED course: no abdominal pain, no cp , no nausea and vomiting, will follow up. Administered Medications: No medications were administered Disposition: 08/10/19 12:38 Discharged to Home. Impression: Abdominal tenderness. - Condition is Stable. - Discharge Instructions: Abdominal Pain, Adult, Abdominal Pain, Adult, [id number]. - Medication Reconciliation Form, Thank You Letter, Antibiotic Education, Prescription Opioid Use form. - Follow up: Private Physician; When: 2 - 3 days; Reason: Recheck today's complaints, Re-evaluation by your physician. - Problem is new. - Symptoms have improved. Signatures: Becky Ulloa RN RN sv Anderson, Corey, MD MD cha Harris, Amy, RN RN Corrections: (The following items were deleted from the chart) 12:48 12:38 08/10/2019 12:38 Discharged to Home. Impression: Abdominal tenderness. Condition ah is Stable. Forms are Medication Reconciliation Form, Thank You Letter, Antibiotic Education, Prescription Opioid Use. Follow up: Private Physician; When: 2 - 3 days; Reason: Recheck today's complaints, Re-evaluation by your physician. Problem is new. Symptoms have improved. evelyn
[2019-08-10 12:53] VITALS: BP 121/84; TEMP 97; O2SAT 100
--- OUTSIDE RECORDS SUMMARY | 2019-08-10 14:25 | XMS REPORT | Continuity of Care Document ---
:1965 Author Organization [facility] t Address [address] [place] [address] Care Team Providers Name Role Phone Unavailable Unavailable Unavailable Problems This patient has no known problems. Allergies, Adverse Reactions, Alerts This patient has no known allergies or adverse reactions. Medications This patient has no known medications. Procedures This patient has no known procedures. Results This patient has no known results.
== END 2019-08-10 12:48 | disposition home or self-care (01) ==
LOC: ER 11:57
DX: R10.819 Abdominal tenderness, unspecified site (principal); I10 Essential (primary) hypertension; Z21 Asymptomatic human immunodeficiency virus [HIV] infection status
CPT/HCPCS: 99281

== ENCOUNTER 2019-08-29 14:35 | Emergency (ER) | payer OTHER ==
--- OUTSIDE RECORDS SUMMARY | 2019-08-29 14:36 | XMS REPORT | Continuity of Care Document ---
:1965 Author Organization [facility] t Address [address] [place] [id number] Care Team Providers Name Role Phone Unavailable Unavailable Unavailable Problems This patient has no known problems. Allergies, Adverse Reactions, Alerts This patient has no known allergies or adverse reactions. Medications This patient has no known medications. Procedures This patient has no known procedures. Results This patient has no known results.
--- NOTE | 2019-08-29 16:41 | ER ---
Nurse's Notes [facility] Name: Charito Michael Age: 54 yrs Sex: Female : 1965 Arrival Date: 08/29/2019 Time: 14:42 Bed Waiting Private MD: Diagnosis: Presentation: 08/28 14:51 Chief complaint: Patient states: rash in between her legs started Saturday. Coronavirus sv screen: Patient reports a cough. Patient denies shortness of breath or difficulty breathing. Patient denies measured and/or subjective temperature greater than 100.4F prior to today's visit. Patient denies travel on a cruise ship or to a country the [facility] currently lists as an affected area. Patient denies contact with known and/or suspected case of COVID-19. Proceed with normal triage. Ebola Screen: No symptoms or risks identified at this time. Risk Assessment: Do you want to hurt yourself or someone else? Patient reports no desire to harm self or others. Onset of symptoms was August 24, 2019. 14:51 Method Of Arrival: Ambulatory sv 14:51 Acuity: GIULIANO 5 sv 14:52 Initial Sepsis Screen: Does the patient meet any 2 criteria? No. Patient's initial sv sepsis screen is negative. Does the patient have a suspected source of infection? No. Patient's initial sepsis screen is negative. Triage Assessment: 14:59 General: Appears in no apparent distress. comfortable, Behavior is calm, cooperative, sv appropriate for age. Pain: Denies pain. Neuro: Level of Consciousness is awake, alert, obeys commands, Oriented to person, place, time, situation, Gait is steady. Respiratory: Respiratory effort is even, unlabored. Historical: - Allergies: 14:52 NKA; sv - PMHx: 14:52 Back pain; CHF; Chronic pain; COPD; HIV; Hypertension; seasonal allergies; sv - PSHx: 14:52 None; sv Vital Signs: 14:52 BP 116 / 76; Pulse 76; Resp 16; Temp 97.4; Pulse Ox 99% ; sv ED Course: 14:42 Patient arrived in ED. fj1 14:51 Arm band placed on. sv 14:52 Triage completed. sv Administered Medications: No medications were administered Outcome: 16:41 Patient left the ED. sv Signatures: Laila, Becky, RN RN sv Jordan, Noam fj1
[2019-08-29 17:13] VITALS: BP 116/76; TEMP 97.4; O2SAT 99
== END 2019-08-29 16:41 | disposition left against medical advice (07) ==
LOC: ER 14:35
DX: Z53.21 Procedure and treatment not carried out due to patient leaving prior to being seen by health care provider (principal)
CPT/HCPCS: 99281

== ENCOUNTER 2019-10-26 12:01 | Emergency (ER) | payer OTHER ==
--- NOTE | 2019-10-26 13:19 | EDPHYS ---
Physician Documentation [facility] Name: Charito Michael Age: 54 yrs Sex: Female : 1965 Arrival Date: 10/26/2019 Time: 12:07 Bed 6 Private MD: BUZZ Physician Chi Sanchez HPI: 10/25 13:11 This 54 yrs old Black Female presents to ER via Ambulatory with complaints of Insect evelyn Bite, Toothache, Cough. 13:11 This 54 yrs old Black Female presents to ER via Ambulatory with complaints of Insect evelyn Bite, Toothache, Cough. 13:11 The patient presents with broken tooth/teeth, pain. The problem is located in the lower evelyn left first molar and lower left second bicuspid. Onset: The symptoms/episode began/occurred 2 day(s) ago. Duration: The symptoms are continuous, and are unchanged since they started. 13:12 The patient presents with pain, tenderness. The complaints affect the left knee. evelyn Context: The problem was sustained at an unknown site. Modifying factors: The symptoms are alleviated by elevating leg, remaining still, the symptoms are aggravated by movement, weight bearing. Associated signs and symptoms: The patient has no apparent associated signs or symptoms. Historical: - Allergies: 12:35 NKA; ca1 - PMHx: 12:35 Back pain; CHF; Chronic pain; COPD; HIV; Hypertension; seasonal allergies; ca1 - PSHx: 12:35 None; ca1 - Immunization history:: Adult Immunizations up to date. - Social history:: Smoking status: Patient denies any tobacco usage or history of. - Family history:: not pertinent. ROS: 13:12 Constitutional: Negative for fever, chills, and weight loss, Eyes: Negative for injury, evelyn pain, redness, and discharge, Neck: Negative for injury, pain, and swelling, Cardiovascular: Negative for chest pain, palpitations, and edema, Respiratory: Negative for shortness of breath, cough, wheezing, and pleuritic chest pain, Abdomen/GI: Negative for abdominal pain, nausea, vomiting, diarrhea, and constipation, Back: Negative for injury and pain, : Negative for injury, bleeding, discharge, and swelling, Skin: Negative for injury, rash, and discoloration, Neuro: Negative for headache, weakness, numbness, tingling, and seizure, Psych: Negative for depression, anxiety, suicide ideation, homicidal ideation, and hallucinations, Allergy/Immunology: Negative for hives, rash, and allergies, Endocrine: Negative for neck swelling, polydipsia, polyuria, polyphagia, and marked weight changes, Hematologic/Lymphatic: Negative for swollen nodes, abnormal bleeding, and unusual bruising. 13:12 ENT: Positive for dental pain. 13:12 MS/extremity: Positive for decreased range of motion, pain, tenderness, of the left knee. Exam: 13:12 Constitutional: This is a well developed, well nourished patient who is awake, alert, evelyn and in no acute distress. Head/Face: Normocephalic, atraumatic. Eyes: Pupils equal round and reactive to light, extra-ocular motions intact. Lids and lashes normal. Conjunctiva and sclera are non-icteric and not injected. Cornea within normal limits. Periorbital areas with no swelling, redness, or edema. ENT: Nares patent. No nasal discharge, no septal abnormalities noted. Tympanic membranes are normal and external auditory canals are clear. Oropharynx with no redness, swelling, or masses, exudates, or evidence of obstruction, uvula midline. Mucous membranes moist. Neck: Trachea midline, no thyromegaly or masses palpated, and no cervical lymphadenopathy. Supple, full range of motion without nuchal rigidity, or vertebral point tenderness. No Meningismus. Chest/axilla: Normal chest wall appearance and motion. Nontender with no deformity. No lesions are appreciated. Cardiovascular: Regular rate and rhythm with a normal S1 and S2. No gallops, murmurs, or rubs. Normal PMI, no JVD. No pulse deficits. Respiratory: Lungs have equal breath sounds bilaterally, clear to auscultation and percussion. No rales, rhonchi or wheezes noted. No increased work of breathing, no retractions or nasal flaring. Abdomen/GI: Soft, non-tender, with normal bowel sounds. No distension or tympany. No guarding or rebound. No evidence of tenderness throughout. Back: No spinal tenderness. No costovertebral tenderness. Full range of motion. Skin: Warm, dry with normal turgor. Normal color with no rashes, no lesions, and no evidence of cellulitis. MS/ Extremity: Pulses equal, no cyanosis. Neurovascular intact. Full, normal range of motion. Neuro: Awake and alert, GCS 15, oriented to person, place, time, and situation. Cranial nerves II-XII grossly intact. Motor strength 5/5 in all extremities. Sensory grossly intact. Cerebellar exam normal. Normal gait. Psych: Awake, alert, with orientation to person, place and time. Behavior, mood, and affect are within normal limits. 13:12 Musculoskeletal/extremity: DVT Exam: No signs of deep vein thrombosis. no pain, no swelling, no tenderness, negative Homans' sign noted on exam, no appreciated bluish discoloration, no erythema, no increased warmth. Vital Signs: 12:32 BP 142 / 85; Pulse 63; Resp 16 S; Temp 97.2(TE); Pulse Ox 100% on R/A; Weight 68.04 kg ca1 (R); Height 5 ft. 3 in. (160.02 cm) (R); 13:27 BP 137 / 79; Pulse 75; Resp 17; Temp 97.5; Pulse Ox 99% ; bp 12:32 Body Mass Index 26.57 (68.04 kg, 160.02 cm) ca1 MDM: 12:54 Patient medically screened. evelyn 13:16 Differential diagnosis: contusion, dental caries, dental abscess. Differential evelyn Diagnosis: Bronchitis Upper Respiratory Infection Pharyngitis Pneumonia. Data reviewed: vital signs, nurses notes. Data interpreted: thaw shed heater tender: not applicable for this patient encounter. rate is 63 beats/min, rhythm is regular, Pulse oximetry: on room air is 100 %. Test interpretation: by ED physician or midlevel provider:. Counseling: I had a detailed discussion with the patient and/or guardian regarding: the historical points, exam findings, and any diagnostic results supporting the discharge/admit diagnosis, lab results, the need for outpatient follow up, for definitive care, a dentist, a family practitioner. Administered Medications: 13:20 Drug: Augmentin 875 mg Route: PO; bp 13:29 Follow up: Response: No adverse reaction; Medication administered at discharge. bp Disposition: 10/26/19 13:19 Discharged to Home. Impression: Insect bite (nonvenomous), left lower leg, Dental caries, Dental root caries, Bronchitis, not specified as acute or chronic. - Condition is Stable. - Discharge Instructions: Dental Caries, Adult, Dental Pain, Upper Respiratory Infection, Adult, Dental Pain, [id number], Cough, Adult, [id number], Diet and Dental Disease, Cough, Adult, Dental Caries, [id number]. - Prescriptions for Augmentin 875- 125 mg Oral Tablet - take 1 tablet by ORAL route every 12 hours for 7 days; 14 tablet. - Medication Reconciliation Form, Thank You Letter, Antibiotic Education, Prescription Opioid Use form. - Follow up: Private Physician; When: 2 - 3 days; Reason: Recheck today's complaints, Continuance of care, Re-evaluation by your physician. - Problem is new. - Symptoms have improved. Signatures: Chi Sanchez MD MD cha Peltier, Brian RN RN bp Jeanine Doran RN RN ca1 Corrections: (The following items were deleted from the chart) 13:29 13:19 10/26/2019 13:19 Discharged to Home. Impression: Insect bite (nonvenomous), left bp lower leg; Dental caries; Dental root caries; Bronchitis, not specified as acute or chronic. Condition is Stable. Forms are Medication Reconciliation Form, Thank You Letter, Antibiotic Education, Prescription Opioid Use. Follow up: Private Physician; When: 2 - 3 days; Reason: Recheck today's complaints, Continuance of care, Re-evaluation by your physician. Problem is new. Symptoms have improved. evelyn
--- NOTE | 2019-10-26 13:19 | ER ---
Nurse's Notes [facility] Name: Charito Michael Age: 54 yrs Sex: Female : 1965 Arrival Date: 10/26/2019 Time: 12:07 Bed 6 Private MD: Diagnosis: Insect bite (nonvenomous), left lower leg;Dental caries;Dental root caries;Bronchitis, not specified as acute or chronic Presentation: 10/25 12:32 Chief complaint: Patient states: Toothache since yesterday, Insect bite on R elbow ca1 yesterday, L knee pain x 2 weeks. Cough since yesterday. Coronavirus screen: Client denies travel out of the [place] in the last 14 days. At this time, the client does not indicate any symptoms associated with coronavirus-19. Ebola Screen: Patient negative for fever greater than or equal to 101.5 degrees Fahrenheit, and additional compatible Ebola Virus Disease symptoms Patient denies exposure to infectious person. Patient denies travel to an Ebola-affected area in the 21 days before illness onset. No symptoms or risks identified at this time. Initial Sepsis Screen: Does the patient meet any 2 criteria? No. Patient's initial sepsis screen is negative. Does the patient have a suspected source of infection? No. Patient's initial sepsis screen is negative. Risk Assessment: Do you want to hurt yourself or someone else? Patient reports no desire to harm self or others. Onset of symptoms was October 26, 2019. 12:32 Method Of Arrival: Ambulatory ca1 12:32 Acuity: GIULIANO 4 ca1 Triage Assessment: 12:35 Bite description: bite sustained to right elbow by INSECT, animal information: bp vaccination(s) is not applicable. General: Appears in no apparent distress. uncomfortable, Behavior is cooperative, appropriate for age, anxious. EENT: No deficits noted. Neuro: No deficits noted. Cardiovascular: No deficits noted. Respiratory: No deficits noted. GI: No signs and/or symptoms were reported involving the gastrointestinal system. : No signs and/or symptoms were reported regarding the genitourinary system. Derm: Reports itching. Musculoskeletal: No deficits noted. 12:35 Pain: Complains of pain in right elbow, left knee and mouth. bp Historical: - Allergies: 12:35 NKA; ca1 - PMHx: 12:35 Back pain; CHF; Chronic pain; COPD; HIV; Hypertension; seasonal allergies; ca1 - PSHx: 12:35 None; ca1 - Immunization history:: Adult Immunizations up to date. - Social history:: Smoking status: Patient denies any tobacco usage or history of. - Family history:: not pertinent. Screenin:00 Abuse screen: Denies threats or abuse. Denies injuries from another. Nutritional bp screening: No deficits noted. Tuberculosis screening: No symptoms or risk factors identified. Fall Risk None identified. Assessment: 13:00 General: SEE TRIAGE NOTE. Derm: Skin is intact, Skin is pink, warm \T\ dry. bp 13:28 Reassessment: PT D/C HOME AMBULATORY, DX WITH DENTAL CARIES AND NON-VENOMOUS INSECT bp BITE. Vital Signs: 12:32 BP 142 / 85; Pulse 63; Resp 16 S; Temp 97.2(TE); Pulse Ox 100% on R/A; Weight 68.04 kg ca1 (R); Height 5 ft. 3 in. (160.02 cm) (R); 13:27 BP 137 / 79; Pulse 75; Resp 17; Temp 97.5; Pulse Ox 99% ; bp 12:32 Body Mass Index 26.57 (68.04 kg, 160.02 cm) ca1 ED Course: 12:07 Patient arrived in ED. as 12:34 Triage completed. ca1 12:35 Arm band placed on right wrist. ca1 12:54 Chi Sanchez MD is Attending Physician. evelyn 12:58 Brian Mcgee, RN is Primary Nurse. bp 13:00 Patient has correct armband on for positive identification. Bed in low position. Call bp light in reach. Side rails up X2. 13:28 No provider procedures requiring assistance completed. Patient did not have IV access bp during this emergency room visit. Administered Medications: 13:20 Drug: Augmentin 875 mg Route: PO; bp 13:29 Follow up: Response: No adverse reaction; Medication administered at discharge. bp Outcome: 13:19 Discharge ordered by . evelyn 13:28 Discharged to home ambulatory. bp 13:28 Condition: stable 13:28 Discharge instructions given to patient, Instructed on discharge instructions, follow up and referral plans. medication usage, Demonstrated understanding of instructions, follow-up care, medications, Prescriptions given X 1. 13:29 Patient left the ED. bp Signatures: Chi Sanchez MD MD cha Martinez, Amelia as Peltier, Brian, HALLE RN bp Jeanine Doran RN RN ca1 Corrections: (The following items were deleted from the chart) 13:13 12:35 Pain: Complains of pain in right elbow, right knee and mouth bp bp
[2019-10-26 13:35] VITALS: BP 137/79; TEMP 97.5; O2SAT 99
[2019-10-26] MEDS ORDERED: AMOX/K CLAV 875 MG TAB ONE (13:36)
== END 2019-10-26 13:29 | disposition home or self-care (01) ==
LOC: ER 12:01
DX: K02.9 Dental caries, unspecified (principal); K02.7 Dental root caries; J40 Bronchitis, not specified as acute or chronic; I10 Essential (primary) hypertension; Z21 Asymptomatic human immunodeficiency virus [HIV] infection status
CPT/HCPCS: 99283

== ENCOUNTER 2020-02-27 13:31 | Emergency (ER) | payer OTHER ==
--- OUTSIDE RECORDS SUMMARY | 2020-02-27 13:34 | XMS REPORT | Continuity of Care Document ---
:1965 Author Organization [facility] t Address [address] [place] [address] Care Team Providers Name Role Phone Unavailable Unavailable Unavailable Problems This patient has no known problems. Allergies, Adverse Reactions, Alerts This patient has no known allergies or adverse reactions. Medications This patient has no known medications. Procedures This patient has no known procedures. Results This patient has no known results.
--- NOTE | 2020-02-27 15:49 | RAD REPORT ---
EXAM DESCRIPTION: RAD - Chest Single View - 02/27/2020 3:25 pm CLINICAL HISTORY: RIB PAIN - RIGHT Chest pain. COMPARISON: Chest Single View dated 07/25/2018; Chest Pa And Lat (2 Views) dated 07/10/2018; Chest Sin gle View dated 01/12/2018; Chest Single View dated 01/10/2018 FINDINGS: Portable technique limits examination quality. Mildly prominent interstitial lung markings, nonspecific. The heart is upper limit of normal in size. No displaced fractures. IMPRESSION: No acute intrathoracic process suspected.
--- NOTE | 2020-02-27 15:49 | RAD REPORT ---
EXAM DESCRIPTION: RAD - Knee Right 3 View - 02/27/2020 3:25 pm CLINICAL HISTORY: PAIN COMPARISON: Knee Right 3 View dated 04/19/2016 FINDINGS: Mild medial compartment space osteoarthritic changes are present. Trace suprapatellar join t effusion is noted. No acute fracture or dislocation.
--- NOTE | 2020-02-27 16:01 | RAD REPORT ---
EXAM DESCRIPTION: CT - CTHCSPWOC - 02/27/2020 3:20 pm CLINICAL HISTORY: Trauma, head and neck injury. PAIN COMPARISON: Neck Angio dated 01/12/2018; C Spine Wo Con dated 09/16/2015; CT HEAD CSPINE MPR WO CONTRAS T dated 01/15/2014 TECHNIQUE: Axial 5 mm thick images of the head were obtained. Axial 2 mm thick images of the cervical spine were obtained with sagittal and coronal reconstruction images generated and reviewed. All CT scans are performed using dose optimization technique as appropriate and may include automated exposure control or mA/KV adjustment according to patient size. FINDINGS: CT HEAD WITHOUT CONTRAST: No acute hemorrhage, hydrocephalus or extra-axial collection is identified.Mild generalized brain atr ophy is present with moderate periventricular and deep white matter chronic microvascular ischemic ch anges.No areas of brain edema or midline shift. The paranasal sinuses and mastoids are clear.The calvarium is intact. CT CERVICAL SPINE WITHOUT CONTRAST: No fracture or subluxation.Mild multilevel cervical degenerative changes are present.No prevertebral soft tissues swelling is identified. IMPRESSION: No acute intracranial or cervical spine findings. Mild diffuse cervical spondylosis.
--- NOTE | 2020-02-27 16:12 | EDPHYS ---
Physician Documentation [facility] Name: Charito Michael Age: 54 yrs Sex: Female : 1965 Arrival Date: 02/27/2020 Time: 13:34 Bed 24 Private MD: ED Physician Alexys Yarbrough HPI: 02/26 16:09 This 54 yrs old Black Female presents to ER via Ambulatory with complaints of Fall pm1 Injury, Back Pain. 16:09 Details of fall: The patient fell from an upright position, while standing. pm1 16:09 Onset: The symptoms/episode began/occurred yesterday. Associated injuries: The patient pm1 sustained injury to the head, neck injury, upper back injury, right knee. The patient has not experienced similar symptoms in the past. The patient has not recently seen a physician. Patient was walking at the store and a person bumped into right knee with a shopping cart. she fell backwards and landed on her head and back. Presenting to the ER with complaints of right knee pain, neck pain, and right upper back pain. No current headache or LOC. Historical: - Allergies: 13:52 NKA; ll1 - PMHx: 13:52 Back pain; CHF; Chronic pain; COPD; HIV; Hypertension; seasonal allergies; ll1 - Immunization history:: Flu vaccine is up to date. - Social history:: Smoking status: Patient denies any tobacco usage or history of. ROS: 16:09 Constitutional: Negative for fever, chills, and weight loss. pm1 16:09 Cardiovascular: Negative for chest pain, palpitations, and edema, Respiratory: Negative for shortness of breath, cough, wheezing, and pleuritic chest pain. 16:09 Skin: Negative for injury, rash, and discoloration, Neuro: Negative for headache, weakness, numbness, tingling, and seizure. 16:09 Neck: Positive for pain with movement, Negative for bony tenderness. 16:09 Back: Positive for of the right subscapular area, pain, Negative for decreased range of motion. 16:09 MS/extremity: Positive for pain, of the right knee, Negative for decreased range of motion, deformity. Exam: 16:09 Constitutional: This is a well developed, well nourished patient who is awake, alert, pm1 and in no acute distress. Head/Face: Normocephalic, atraumatic. 16:09 Skin: Warm, dry with normal turgor. Normal color with no rashes, no lesions, and no evidence of cellulitis. 16:09 Cardiovascular: Exam negative for acute changes, Rate: normal, Rhythm: regular, Pulses: no pulse deficits are appreciated. 16:09 Respiratory: Exam negative for acute changes, respiratory distress, shortness of breath. 16:09 Back: pain, that is mild, of the right trapezius and right subscapular area, vertebral tenderness, is not appreciated. 16:09 Musculoskeletal/extremity: Extremities: grossly normal except: noted in the right knee: tenderness, There is no evidence of decreased ROM, deformity. 16:09 Neuro: Exam negative for acute changes, Orientation: is normal, Mentation: is normal, Motor: is normal, moves all fours. Vital Signs: 13:52 BP 142 / 95; Pulse 78; Resp 17; Temp 97.6; Pulse Ox 100% ; Weight 68.04 kg; Height 5 ll1 ft. 3 in. (160.02 cm); Pain 10/10; 13:52 Body Mass Index 26.57 (68.04 kg, 160.02 cm) ll1 MDM: 14:35 Patient medically screened. pm1 16:09 Data reviewed: vital signs. Data interpreted: Pulse oximetry: on room air is 100 %. pm1 Interpretation: normal. Counseling: I had a detailed discussion with the patient and/or guardian regarding: the historical points, exam findings, and any diagnostic results supporting the discharge/admit diagnosis, radiology results, the need for outpatient follow up, to return to the emergency department if symptoms worsen or persist or if there are any questions or concerns that arise at home. 02/26 14:41 Order name: CT Head C Spine; Complete Time: 16:08 pm1 02/26 14:41 Order name: Knee Right 3 View XRAY; Complete Time: 16:08 pm1 02/26 14:41 Order name: Chest Single View XRAY; Complete Time: 16:08 pm1 Administered Medications: No medications were administered Disposition: 17:52 Co-signature as Attending Physician, Alexys Yarbrough MD I agree with the assessment and kdr plan of care. Disposition: 02/27/20 16:11 Discharged to Home. Impression: Fall on same level from slipping, tripping and stumbling, Strain of muscle, fascia and tendon at neck level, Contusion of right knee, Contusion of right back wall of thorax. - Condition is Stable. - Discharge Instructions: Contusion, Fall Prevention in the Home, Muscle Strain. - Prescriptions for Tylenol- Codeine #3 300-30 mg Oral Tablet - take 2 tablets by ORAL route every 6 hours As needed; 20 tablet. Cyclobenzaprine 10 mg Oral Tablet - take 1 tablet by ORAL route every 8 hours As needed; 30 tablet. Flonase Allergy Relief 50 mcg/actuation Nasal spray,suspension - inhale 1 spray by INTRANASAL route once daily As needed; 1 unit. - Medication Reconciliation Form, Thank You Letter, Antibiotic Education, Prescription Opioid Use form. - Follow up: Emergency Department; When: As needed; Reason: Worsening of condition. Follow up: Private Physician; When: 2 - 3 days; Reason: Recheck today's complaints, Continuance of care, Re-evaluation by your physician. - Problem is new. - Symptoms have improved. Signatures: Dispatcher [employer] EDBecky De La Garza RN RN Alexys Yarbrough MD MD kdr Marinas, Patrick, NP WINDOWS SYSTEMS ADMINISTRATOR pm1 Tone Diehl RN RN ll1 Corrections: (The following items were deleted from the chart) 16:12 16:11 02/27/2020 16:11 Discharged to Home. Impression: Fall on same level from pm1 slipping, tripping and stumbling; Strain of muscle, fascia and tendon at neck level; Contusion of right knee. Condition is Stable. Forms are Medication Reconciliation Form, Thank You Letter, Antibiotic Education, Prescription Opioid Use. Follow up: Emergency Department; When: As needed; Reason: Worsening of condition. Follow up: Private Physician; When: 2 - 3 days; Reason: Recheck today's complaints, Continuance of care, Re-evaluation by your physician. Problem is new. Symptoms have improved. pm1 16:19 16:12 02/27/2020 16:11 Discharged to Home. Impression: Fall on same level from sv slipping, tripping and stumbling; Strain of muscle, fascia and tendon at neck level; Contusion of right knee; Contusion of right back wall of thorax. Condition is Stable. Discharge Instructions: Contusion, Fall Prevention in the Home, Muscle Strain. Forms are Medication Reconciliation Form, Thank You Letter, Antibiotic Education, Prescription Opioid Use. Follow up: Emergency Department; When: As needed; Reason: Worsening of condition. Follow up: Private Physician; When: 2 - 3 days; Reason: Recheck today's complaints, Continuance of care, Re-evaluation by your physician. Problem is new. Symptoms have improved. pm1
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
[2020-02-27 16:23] VITALS: BP 142/95; TEMP 97.6; O2SAT 100
== END 2020-02-27 16:19 | disposition home or self-care (01) ==
LOC: ER 13:31
DX: S16.1XXA Strain of muscle, fascia and tendon at neck level, initial encounter (principal); S80.01XA Contusion of right knee, initial encounter; S20.221A Contusion of right back wall of thorax, initial encounter; W18.09XA Striking against other object with subsequent fall, initial encounter; Y93.01 Activity, walking, marching and hiking; Y92.512 Supermarket, store or market as the place of occurrence of the external cause; Z21 Asymptomatic human immunodeficiency virus [HIV] infection status; I10 Essential (primary) hypertension
CPT/HCPCS: 70450; 71045; 72125; 99283

== ENCOUNTER 2020-04-11 10:59 | Emergency (ER) | payer OTHER ==
--- OUTSIDE RECORDS SUMMARY | 2020-04-11 11:02 | XMS REPORT | Continuity of Care Document ---
:1965 Author Organization [facility] t Address [address] [place] [address] Care Team Providers Name Role Phone Unavailable Unavailable Unavailable Problems This patient has no known problems. Allergies, Adverse Reactions, Alerts This patient has no known allergies or adverse reactions. Medications This patient has no known medications. Procedures This patient has no known procedures. Results This patient has no known results.
--- NOTE | 2020-04-11 12:45 | EDPHYS ---
Physician Documentation [facility] Name: Charito Michael Age: 55 yrs Sex: Female : 1965 Arrival Date: 04/11/2020 Time: 11:03 Bed 24 Private MD: ED Physician Ac Nixon HPI: 04/11 12:40 This 55 yrs old Black Female presents to ER via Ambulatory with complaints of Leg Pain, rn Back Pain. 12:40 The patient presents with pain, that is chronic. The complaints affect the back, right rn leg and left leg. Onset: The symptoms/episode began/occurred at an unknown time. Modifying factors: The symptoms are alleviated by nothing. the symptoms are aggravated by nothing. Severity of symptoms: At their worst the symptoms were mild, in the emergency department the symptoms are unchanged. The patient has experienced similar episodes in the past, chronically. Reports chronic back and leg pain that get worse with changes in weather, no acute trauma, had fall somewhat recently but states seen at another ER with negative xrays of back and knees. Reports also has cold symptoms but has COVID test pending and does not want testing performed here. States here for pain medication. . Historical: - Allergies: 11:32 NKA; ca1 - PMHx: 11:32 Back pain; CHF; Chronic pain; COPD; HIV; Hypertension; seasonal allergies; ca1 - PSHx: 11:32 back surgery; ca1 - Immunization history:: Flu vaccine is up to date. - Social history:: Smoking status: Patient denies any tobacco usage or history of. - Family history:: not pertinent. - Hospitalizations: : No recent hospitalization is reported. ROS: 12:40 Constitutional: Negative for fever, chills, and weight loss, Eyes: Negative for injury, rn pain, redness, and discharge, Neck: Negative for injury, pain, and swelling, Cardiovascular: Negative for chest pain, palpitations, and edema, Respiratory: Negative for shortness of breath, cough, wheezing, and pleuritic chest pain, Abdomen/GI: Negative for abdominal pain, nausea, vomiting, diarrhea, and constipation, Back: + lower back pain, no acute injury MS/Extremity: Negative for injury and deformity, Skin: Negative for injury, rash, and discoloration, Neuro: Negative for headache, weakness, numbness, tingling, and seizure. Exam: 12:40 Constitutional: This is a well developed, well nourished patient who is awake, alert, rn and in no acute distress. Head/Face: Normocephalic, atraumatic. Cardiovascular: Regular rate and rhythm. No pulse deficits. Respiratory: Speaking full sentences. No increased work of breathing, no retractions or nasal flaring. Abdomen/GI: soft, non-tender Back: No spinal tenderness. Skin: Warm, dry with normal turgor. Normal color with no rashes, no lesions, and no evidence of cellulitis. MS/ Extremity: Pulses equal, no cyanosis. Neurovascular intact. Full, normal range of motion. Equal circumference. Neuro: Awake and alert, GCS 15 Vital Signs: 11:30 BP 132 / 90; Pulse 76; Resp 16 S; Temp 97.3(TE); Pulse Ox 97% on R/A; Weight 68.04 kg ca1 (R); Height 5 ft. 3 in. (160.02 cm) (R); Pain 10/10; 13:04 BP 148 / 82; Pulse 68; Resp 15; Pulse Ox 98% on R/A; zb 11:30 Body Mass Index 26.57 (68.04 kg, 160.02 cm) ca1 MDM: 12:30 Patient medically screened. rn 12:40 Differential diagnosis: arthritis. Data reviewed: vital signs, nurses notes, old rn medical records, and as a result, I will discharge patient. Counseling: I had a detailed discussion with the patient and/or guardian regarding: the historical points, exam findings, and any diagnostic results supporting the discharge/admit diagnosis, the need for outpatient follow up, to return to the emergency department if symptoms worsen or persist or if there are any questions or concerns that arise at home. Special discussion: I discussed with the patient/guardian in detail that at this point there is no indication for admission to the hospital. It is understood, however, that if the symptoms persist or worsen the patient needs to return immediately for re-evaluation. ED course: PMPAWARe checked, score 140/100/000/430, no active narcotic prescriptions, will dc with a few. . Administered Medications: No medications were administered Disposition: 04/11/20 12:45 Discharged to Home. Impression: Osteoarthritis, unspecified site, Chronic pain, not elsewhere classified. - Condition is Stable. - Discharge Instructions: Back Pain, Adult, Chronic Pain. - Prescriptions for Ultram 50 mg Oral Tablet - take 1 tablet by ORAL route every 6 hours As needed; 12 tablet. - Medication Reconciliation Form, Thank You Letter, Antibiotic Education, Prescription Opioid Use form. - Follow up: Private Physician; When: As needed; Reason: Recheck today's complaints, Re-evaluation by your physician. - Problem is chronic. - Symptoms have improved. Signatures: Ac Nixon MD MD rn Acob, HALLE Solorzano RN, [place], RN RN zb Corrections: (The following items were deleted from the chart) 13:04 12:45 04/11/2020 12:45 Discharged to Home. Impression: Osteoarthritis, unspecified zb site; Chronic pain, not elsewhere classified. Condition is Stable. Forms are Medication Reconciliation Form, Thank You Letter, Antibiotic Education, Prescription Opioid Use. Follow up: Private Physician; When: As needed; Reason: Recheck today's complaints, Re-evaluation by your physician. Problem is chronic. Symptoms have improved. rn
--- NOTE | 2020-04-11 12:45 | ER ---
Nurse's Notes [facility] Name: Charito Michael Age: 55 yrs Sex: Female : 1965 Arrival Date: 04/11/2020 Time: 11:03 Bed 24 Private MD: Diagnosis: Osteoarthritis, unspecified site;Chronic pain, not elsewhere classified Presentation: 04/11 11:30 Chief complaint: Patient states: Bilateral knee aching x 3 day. Middle back pain ca1 across. Cough, congestion x 5 days. Coronavirus screen: Client denies travel out of the [place] in the last 14 days. congestion, cough unrelated to allergies, Client presents with at least one sign or symptom that may indicate coronavirus-19. Standard/surgical mask placed on the client. Provider contacted for isolation considerations. Ebola Screen: Patient negative for fever greater than or equal to 101.5 degrees Fahrenheit, and additional compatible Ebola Virus Disease symptoms Patient denies exposure to infectious person. Patient denies travel to an Ebola-affected area in the 21 days before illness onset. No symptoms or risks identified at this time. Initial Sepsis Screen: Does the patient meet any 2 criteria? No. Patient's initial sepsis screen is negative. Does the patient have a suspected source of infection? No. Patient's initial sepsis screen is negative. Risk Assessment: Do you want to hurt yourself or someone else? Patient reports no desire to harm self or others. Onset of symptoms was April 11, 2020. 11:30 Method Of Arrival: Ambulatory ca1 11:30 Acuity: GIULIANO 3 ca1 Historical: - Allergies: 11:32 NKA; ca1 - PMHx: 11:32 Back pain; CHF; Chronic pain; COPD; HIV; Hypertension; seasonal allergies; ca1 - PSHx: 11:32 back surgery; ca1 - Immunization history:: Flu vaccine is up to date. - Social history:: Smoking status: Patient denies any tobacco usage or history of. - Family history:: not pertinent. - Hospitalizations: : No recent hospitalization is reported. Screenin:03 Abuse screen: Denies threats or abuse. Denies injuries from another. Nutritional zb screening: No deficits noted. Tuberculosis screening: No symptoms or risk factors identified. Fall Risk None identified. Assessment: 13:00 General: Appears in no apparent distress. comfortable, Behavior is calm, cooperative, zb appropriate for age, Denies fever, feeling ill, fatigue, chills. Pain: Complains of pain in lumbar area Pain radiates to right leg and left leg Pain currently is 10 out of 10 on a pain scale. Quality of pain is described as radiating, sharp. Neuro: Level of Consciousness is awake, alert, obeys commands, Oriented to person, place, time, situation. Cardiovascular: Capillary refill < 3 seconds in bilateral fingers Patient's skin is warm and dry. Respiratory: Airway is patent Respiratory effort is even, unlabored, Respiratory pattern is regular, symmetrical. GI: Abdomen is flat, Bowel sounds present X 4 quads. : No signs and/or symptoms were reported regarding the genitourinary system. EENT: No signs and/or symptoms were reported regarding the EENT system. Derm: No signs and/or symptoms reported regarding the dermatologic system. Musculoskeletal: Circulation, motion, and sensation intact. Capillary refill < 3 seconds, in bilateral fingers. Range of motion: intact in all extremities. Vital Signs: 11:30 BP 132 / 90; Pulse 76; Resp 16 S; Temp 97.3(TE); Pulse Ox 97% on R/A; Weight 68.04 kg ca1 (R); Height 5 ft. 3 in. (160.02 cm) (R); Pain 10/10; 13:04 BP 148 / 82; Pulse 68; Resp 15; Pulse Ox 98% on R/A; zb 11:30 Body Mass Index 26.57 (68.04 kg, 160.02 cm) ca1 ED Course: 11:03 Patient arrived in ED. ds1 11:31 Triage completed. ca1 11:32 Arm band placed on right wrist. ca1 12:30 Ac Nixon MD is Attending Physician. rn 12:50 Samantha Cabrera RN is Primary Nurse. zb 13:03 No provider procedures requiring assistance completed. Patient did not have IV access zb during this emergency room visit. 13:04 Patient has correct armband on for positive identification. Pulse ox on. NIBP on. Door zb closed. Noise minimized. Administered Medications: No medications were administered Outcome: 12:45 Discharge ordered by . rn 13:03 Discharged to home ambulatory. zb 13:03 Condition: stable 13:03 Discharge instructions given to patient, Instructed on discharge instructions, follow up and referral plans. medication usage, Demonstrated understanding of instructions, follow-up care, medications, Prescriptions given X 1. 13:04 Patient left the ED. zb Signatures: Cristal Inman ds1 Ac Nixon MD MD rn Jeanine Doran RN RN ca1 Samantha Cabrera RN RN zb Corrections: (The following items were deleted from the chart) 11:40 11:30 BP 132 / 0; Pulse 76bpm; Resp 16bpm; Spontaneous; Pulse Ox 97% RA; Temp 97.3F ca1 Temporal; 68.04 kg Reported; Height 5 ft. 3 in. Reported; BMI: 26.5; Pain 10/10; ca1
[2020-04-11 14:30] VITALS: TEMP 97.3
[2020-04-11 14:31] VITALS: BP 148/82; O2SAT 98
== END 2020-04-11 13:04 | disposition home or self-care (01) ==
LOC: ER 10:59
DX: M19.90 Unspecified osteoarthritis, unspecified site (principal); G89.29 Other chronic pain; I10 Essential (primary) hypertension; Z21 Asymptomatic human immunodeficiency virus [HIV] infection status
CPT/HCPCS: 99283

== ENCOUNTER 2020-06-23 10:04 | Emergency (ER) | payer OTHER ==
--- OUTSIDE RECORDS SUMMARY | 2020-06-23 10:09 | XMS REPORT | Continuity of Care Document ---
:1965 Author Organization [facility] t Address [address] [place] [address] Care Team Providers Name Role Phone Unavailable Unavailable Unavailable Problems This patient has no known problems. Allergies, Adverse Reactions, Alerts This patient has no known allergies or adverse reactions. Medications This patient has no known medications. Procedures This patient has no known procedures. Results This patient has no known results.
--- NOTE | 2020-06-23 11:59 | ER ---
Nurse's Notes [facility] Name: Charito Michael Age: 55 yrs Sex: Female : 1965 Arrival Date: 06/23/2020 Time: 10:13 Bed 16 Private MD: Diagnosis: Low back pain;Urinary tract infection, site not specified Presentation: 06/23 11:01 Chief complaint: Patient states: back, abundio knee and throat pain x 1 day. Coronavirus sv screen: Client denies travel out of the [place] in the last 14 days. At this time, the client does not indicate any symptoms associated with coronavirus-19. Ebola Screen: No symptoms or risks identified at this time. Risk Assessment: Do you want to hurt yourself or someone else? Patient reports no desire to harm self or others. Onset of symptoms was June 22, 2020. 11:01 Method Of Arrival: Ambulatory sv 11:01 Acuity: GIULIANO 4 sv Historical: - Allergies: 11:03 NKA; sv - PMHx: 11:03 Back pain; CHF; Chronic pain; COPD; HIV; Hypertension; seasonal allergies; sv - PSHx: 11:03 back surgery; sv - Immunization history:: Adult Immunizations up to date. - Social history:: Smoking status: Patient denies any tobacco usage or history of. - Family history:: not pertinent. Screenin:10 Abuse screen: Denies threats or abuse. Nutritional screening: No deficits noted. vg1 Tuberculosis screening: No symptoms or risk factors identified. Fall Risk No fall in past 12 months (0 pts). No secondary diagnosis (0 pts). No IV (0 pts). Ambulatory Aid- None/Bed Rest/Nurse Assist (0 pts). Gait- Normal/Bed Rest/Wheelchair (0 pts) Mental Status- Oriented to own ability (0 pts). Total Lo Fall Scale indicates No Risk (0-24 pts). Assessment: 11:07 General: Appears in no apparent distress. comfortable, Behavior is calm, cooperative. vg1 Pain: Complains of pain in Lower back, ABUNDIO knees, throat, and right ear Pain currently is 5 out of 10 on a pain scale. Pain began about a week. Neuro: Level of Consciousness is awake, alert, obeys commands, Oriented to person, place, time, situation. Cardiovascular: Patient's skin is warm and dry. Respiratory: Reports cough that is dry, Airway is patent Respiratory effort is even, unlabored. GI: No signs and/or symptoms were reported involving the gastrointestinal system. : No signs and/or symptoms were reported regarding the genitourinary system. EENT: Throat is pink Reports sore throat and right ear pain. Derm: Skin is intact, is healthy with good turgor. Musculoskeletal: Circulation, motion, and sensation intact. 13:22 Reassessment: Patient appears in no apparent distress at this time. Patient and/or vg1 family updated on plan of care and expected duration. Pain level reassessed. Patient is alert, oriented x 3, equal unlabored respirations, skin warm/dry/pink. 14:20 Reassessment: Patient appears in no apparent distress at this time. Patient and/or vg1 family updated on plan of care and expected duration. Pain level reassessed. Patient is alert, oriented x 3, equal unlabored respirations, skin warm/dry/pink. Vital Signs: 11:09 BP 129 / 74; Pulse 66; Resp 14; Temp 97.8; Pulse Ox 100% on R/A; vg1 13:17 BP 149 / 76; Pulse 68; Resp 14; Pulse Ox 98% on R/A; mh5 14:20 BP 155 / 80; Pulse 64; Resp 16; Pulse Ox 100% ; vg1 ED Course: 10:13 Patient arrived in ED. mr 10:46 Chi Sanchez MD is Attending Physician. [facility] 11:02 Triage completed. sv 11:03 Brea Vela, RN is Primary Nurse. 1 11:03 Arm band placed on. sv 11:11 Patient has correct armband on for positive identification. Bed in low position. Call vg1 light in reach. Side rails up X 1. 12:26 CT Stone Protocol In Process Unspecified. EDMS 13:02 Urine Culture Sent. 5 13:03 Comprehensive Metabolic Panel Sent. 5 13:03 CBC with Diff Sent. 5 13:03 Initial lab(s) drawn, by sd, sent to lab. Urine collected: clean catch specimen, mh5 cloudy. Inserted saline lock: 22 gauge in left antecubital area, using aseptic technique. Blood collected. 14:27 No provider procedures requiring assistance completed. IV discontinued, intact, vg1 bleeding controlled, No redness/swelling at site. Pressure dressing applied. Administered Medications: 13:21 Drug: NS 0.9% 500 ml Route: IV; Rate: bolus; Site: left antecubital; vg1 14:18 Follow up: IV Status: Completed infusion; IV Intake: 500ml vg1 13:22 Drug: Rocephin (cefTRIAXone) 1 grams Route: IV; Rate: per protocol; Site: left vg1 antecubital; 14:18 Follow up: IV Status: Completed infusion vg1 Intake: 14:18 IV: 500ml; Total: 500ml. vg1 Outcome: 11:59 Discharge ordered by . evelyn 13:57 Discharge ordered by . evelyn 14:27 Discharged to home ambulatory. vg1 14:27 Condition: stable 14:27 Discharge instructions given to patient, Instructed on discharge instructions, follow up and referral plans. medication usage, Demonstrated understanding of instructions, follow-up care, medications, Prescriptions given X 2. 14:28 Patient left the ED. vg1 Signatures: Dispatcher [employer] Becky Judd, Chi Finney RN, MD MD cha Rivera, Mary mr Martinez, Maria mh5 Garcia, Victoria, RN RN vg1
--- NOTE | 2020-06-23 12:00 | EDPHYS ---
Physician Documentation [facility] Name: Charito Michael Age: 55 yrs Sex: Female : 1965 Arrival Date: 06/23/2020 Time: 10:13 Bed 16 Private MD: BUZZ Physician Chi Sanchez HPI: 06/23 11:54 This 55 yrs old Black Female presents to ER via Ambulatory with complaints of Back evelyn Pain, Knee Pain. 11:54 The patient presents with pain that is chronic. The symptoms are located in the low evelyn back. Onset: The symptoms/episode began/occurred 2 day(s) ago. The pain does not radiate. Associated signs and symptoms: The patient has no apparent associated signs or symptoms. The problem was sustained when bending over. Modifying factors: The patient symptoms are alleviated by remaining still, the patient symptoms are aggravated by any movement. Severity of symptoms: At their worst the symptoms were mild, in the emergency department the symptoms are unchanged. The patient has not experienced similar symptoms in the past. Historical: - Allergies: 11:03 NKA; sv - PMHx: 11:03 Back pain; CHF; Chronic pain; COPD; HIV; Hypertension; seasonal allergies; sv - PSHx: 11:03 back surgery; sv - Immunization history:: Adult Immunizations up to date. - Social history:: Smoking status: Patient denies any tobacco usage or history of. - Family history:: not pertinent. ROS: 11:54 Constitutional: Negative for fever, chills, and weight loss, Eyes: Negative for injury, evelyn pain, redness, and discharge, ENT: Negative for injury, pain, and discharge, Neck: Negative for injury, pain, and swelling, Cardiovascular: Negative for chest pain, palpitations, and edema, Respiratory: Negative for shortness of breath, cough, wheezing, and pleuritic chest pain, Abdomen/GI: Negative for abdominal pain, nausea, vomiting, diarrhea, and constipation, : Negative for injury, bleeding, discharge, and swelling, MS/Extremity: Negative for injury and deformity, Skin: Negative for injury, rash, and discoloration, Neuro: Negative for headache, weakness, numbness, tingling, and seizure, Psych: Negative for depression, anxiety, suicide ideation, homicidal ideation, and hallucinations, Allergy/Immunology: Negative for hives, rash, and allergies, Endocrine: Negative for neck swelling, polydipsia, polyuria, polyphagia, and marked weight changes, Hematologic/Lymphatic: Negative for swollen nodes, abnormal bleeding, and unusual bruising. 11:54 Back: Positive for decreased range of motion, pain at rest, pain with movement, of the lumbar area. Exam: 11:54 Constitutional: This is a well developed, well nourished patient who is awake, alert, evelyn and in no acute distress. Head/Face: Normocephalic, atraumatic. Eyes: Pupils equal round and reactive to light, extra-ocular motions intact. Lids and lashes normal. Conjunctiva and sclera are non-icteric and not injected. Cornea within normal limits. Periorbital areas with no swelling, redness, or edema. ENT: Nares patent. No nasal discharge, no septal abnormalities noted. Tympanic membranes are normal and external auditory canals are clear. Oropharynx with no redness, swelling, or masses, exudates, or evidence of obstruction, uvula midline. Mucous membranes moist. Neck: Trachea midline, no thyromegaly or masses palpated, and no cervical lymphadenopathy. Supple, full range of motion without nuchal rigidity, or vertebral point tenderness. No Meningismus. Chest/axilla: Normal chest wall appearance and motion. Nontender with no deformity. No lesions are appreciated. Cardiovascular: Regular rate and rhythm with a normal S1 and S2. No gallops, murmurs, or rubs. Normal PMI, no JVD. No pulse deficits. Respiratory: Lungs have equal breath sounds bilaterally, clear to auscultation and percussion. No rales, rhonchi or wheezes noted. No increased work of breathing, no retractions or nasal flaring. Abdomen/GI: Soft, non-tender, with normal bowel sounds. No distension or tympany. No guarding or rebound. No evidence of tenderness throughout. Female : Normal external genitalia. Skin: Warm, dry with normal turgor. Normal color with no rashes, no lesions, and no evidence of cellulitis. MS/ Extremity: Pulses equal, no cyanosis. Neurovascular intact. Full, normal range of motion. Neuro: Awake and alert, GCS 15, oriented to person, place, time, and situation. Cranial nerves II-XII grossly intact. Motor strength 5/5 in all extremities. Sensory grossly intact. Cerebellar exam normal. Normal gait. Psych: Awake, alert, with orientation to person, place and time. Behavior, mood, and affect are within normal limits. 11:54 Back: pain, that is mild, ROM is normal, normal spinal alignment noted, CVA tenderness, is absent, muscle spasm, is not present. Vital Signs: 11:09 BP 129 / 74; Pulse 66; Resp 14; Temp 97.8; Pulse Ox 100% on R/A; vg1 13:17 BP 149 / 76; Pulse 68; Resp 14; Pulse Ox 98% on R/A; mh5 14:20 BP 155 / 80; Pulse 64; Resp 16; Pulse Ox 100% ; vg1 MDM: 10:46 Patient medically screened. [facility] [place] 12:13 Differential diagnosis: chronic back pain, Osteoarthritis Osteomalacia Osteoporosis evelyn Pyelonephritis sprain, Ureterolithiasis. Data reviewed: vital signs, nurses notes, lab test result(s), radiologic studies, CT scan. Data interpreted: monitoring coordinator: rate is 66 beats/min, rhythm is regular, Pulse oximetry: on room air is 100 %. Counseling: I had a detailed discussion with the patient and/or guardian regarding: the historical points, exam findings, and any diagnostic results supporting the discharge/admit diagnosis, lab results, radiology results. 06/23 12:12 Order name: Urine Dipstick-Ancillary; Complete Time: 13:21 [facility] 06/23 12:13 Order name: CBC with Diff [facility] [place] 06/23 12:13 Order name: Comprehensive Metabolic Panel; Complete Time: 13:57 [facility] [place] 06/23 12:13 Order name: CT Stone Protocol; Complete Time: 13:21 [facility] [place] 06/23 12:13 Order name: Urine Culture [facility] [place] 06/23 13:38 Order name: Manual Differential [facility] 06/23 11:41 Order name: Urine Dipstick-Ancillary (obtain specimen); Complete Time: 13:02 em1 Administered Medications: 13:21 Drug: NS 0.9% 500 ml Route: IV; Rate: bolus; Site: left antecubital; vg1 14:18 Follow up: IV Status: Completed infusion; IV Intake: 500ml vg1 13:22 Drug: Rocephin (cefTRIAXone) 1 grams Route: IV; Rate: per protocol; Site: left vg1 antecubital; 14:18 Follow up: IV Status: Completed infusion vg1 Disposition: 06/23/20 13:57 Discharged to Home. Impression: Low back pain, Urinary tract infection, site not specified. - Condition is Stable. - Discharge Instructions: Back Pain, Adult, Chronic Back Pain, Dysuria, Musculoskeletal Pain, Urinary Tract Infection, Adult, Urinary Tract Infection, Adult, [id number], Back Pain, Adult, [id number]. - Prescriptions for Cipro 250 mg Oral Tablet - take 1 tablet by ORAL route every 12 hours; 14 tablet. Motrin IB 200 mg Oral Tablet - take 2 tablet by ORAL route every 6 hours As needed as needed with food; 30 tablet. - Medication Reconciliation Form, Thank You Letter, Antibiotic Education, Prescription Opioid Use form. - Follow up: Private Physician; When: 2 - 3 days; Reason: Recheck today's complaints, Continuance of care, Re-evaluation by your physician. - Problem is new. - Symptoms have improved. Signatures: Dispatcher [employer] EDBecky De La Garza RN RN sv Anderson, Corey, MD MD cha Martinez, Eric [facility] Brea Vela RN RN vg1 Corrections: (The following items were deleted from the chart) 12:14 11:59 06/23/2020 11:59 Discharged to Home. Impression: Low back pain; Other chronic evelyn pain. Condition is Stable. Forms are Medication Reconciliation Form, Thank You Letter, Antibiotic Education, Prescription Opioid Use. Follow up: Private Physician; When: 2 - 3 days; Reason: Recheck today's complaints, Continuance of care, Re-evaluation by your physician. Problem is new. Symptoms have improved. [facility] [place] 14:28 13:57 06/23/2020 13:57 Discharged to Home. Impression: Low back pain; Urinary tract vg1 infection, site not specified. Condition is Stable. Discharge Instructions: Back Pain, Adult, Chronic Back Pain, Dysuria, Musculoskeletal Pain, Urinary Tract Infection, Adult, Urinary Tract Infection, Adult, [id number], Back Pain, Adult, [id number]-nd-Sumt. Prescriptions for Motrin IB 200 mg Oral Tablet - take 2 tablet by ORAL route every 6 hours As needed as needed with food; 30 tablet, Cipro 250 mg Oral Tablet - take 1 tablet by ORAL route every 12 hours; 14 tablet, Motrin IB 200 mg Oral Tablet - take 2 tablet by ORAL route every 6 hours As needed as needed with food; 30 tablet. and Forms are Medication Reconciliation Form, Thank You Letter, Antibiotic Education, Prescription Opioid Use. Follow up: Private Physician; When: 2 - 3 days; Reason: Recheck today's complaints, Continuance of care, Re-evaluation by your physician. Problem is new. Symptoms have improved. evelyn
[2020-06-23 12:12] LABS: Urine Blood 3+ (Negative); Urine Glucose Negative (Negative); Urine Protein 2+ (Negative); Urine Specific Gravity 1.025 (1.005-1.030)
--- NOTE | 2020-06-23 12:38 | RAD REPORT ---
EXAM DESCRIPTION: CT - Stone Protocol - 06/23/2020 12:26 pm CLINICAL HISTORY: Flank pain. FLANK PAIN COMPARISON: No comparisons TECHNIQUE: Axial images were obtained without oral or IV contrast. Lack of contrast limits solid org an and vascular assessment. The [id number] spans the entirety of the system partially obscuring uppermost abdomen and lung bases. Coronal reformatted images were obtained and reviewed. All CT scans are performed using dose optimization technique as appropriate and may include automated exposure control or mA/KV adjustment according to patient size. FINDINGS: The lower lung yusuf are clear. Imaged portions of the liver and spleen show no suspicious findings on non-contrast imaging.Questiona ble gallstones. The pancreas and adrenal glands are normal. No pathologic lymphadenopathy in the abdo men or pelvis. No urinary tract stones or obstructive uropathy. No bowel obstruction, free air, free fluid or abscess. Normal appendix noted.Postsurgical clips are p resent in the pelvis. Moderate lumbosacral degenerative changes. IMPRESSION: No urinary tract stones or obstructive uropathy. Questionable gallstones.
[2020-06-23] MEDS ORDERED: CEFTRIAXONE/SWI 1gm 1 GM/10 ML SYR ONE (13:27)
[2020-06-23] MEDS ORDERED: NA CHLORIDE 0.9% 500 ML ONE (13:27)
[2020-06-23 13:30] LABS: Absolute Lymphocytes (CBC) 1.2 K/uL (0.7-4.9); Hematocrit 35.6 % (36.0-45.0); Lymphocytes % 47.2 % (15.3-44.8); MPV 8.8 fL (7.6-11.3); RBC Red Blood Cell Count 3.46 M/uL (3.86-4.86)
[2020-06-23 13:45] LABS: Albumin 3.4 g/dL (3.4-5.0); Bilirubin Total 0.4 mg/dL (0.2-1.0); Potassium 3.5 mmol/L (3.5-5.1); Protein, Total 10.5 g/dL (6.4-8.2)
[2020-06-23 14:42] VITALS: TEMP 97.8
[2020-06-23 15:03] VITALS: BP 155/80; O2SAT 100
[2020-06-23 15:14] LABS: Blood Morphology Comment NOT SEEN (NOT SEEN); Platelet Estimate ADEQ
== END 2020-06-23 14:28 | disposition home or self-care (01) ==
LOC: ER 10:04
DX: N39.0 Urinary tract infection, site not specified (principal); I10 Essential (primary) hypertension
CPT/HCPCS: 96365; 87088; 85025; 87086; 36415; 81003; 80053; 76377; 74176; 99284; J0696; J7040

== ENCOUNTER 2021-01-11 09:07 | Emergency (ER) | payer OTHER ==
--- OUTSIDE RECORDS SUMMARY | 2021-01-11 09:15 | XMS REPORT | Continuity of Care Document ---
:1965 Author Organization [facility] t Address [address] [place] [address] Care Team Providers Name Role Phone Delfino Schumacher [facility] Primary Care Physic brady Dean_Robert Attending Clinician Unavailable Maggie_A Attending Clinician Unavailable ALEXANDRA, K.H. Attending Clinician Unavailable Eliane Deleon DO Attending Clinician Alexandra CENTENO, K.H. Attending Clinician Suzette Harris Attending Clinician Doctor Unassigned, Name Attending Clinician Unavailable Mirna Mendoza Attending Clinician Chantelle WALKER, nEdy Attending Clinician Av Admitting Clinician Unavailable Maggie_A Admitting Clinician Unavailable Payers Payer Name Policy Type Policy Number Effective Date Expiration Date S [facility] HEALTH [id number] 2020 (MEDICARE 00:00:00 REPLACEMENT HMO) MANAGED MEDICARE [id number] 2020 HMO GENERIC 00:00:00 [facility] [id number] 2016 MEDICAID 00:00:00 [place]ICAID [place] [id number] 2020 00:00:00 [facility] [id number] 2017 DUAL COMPLETE HMO 00:00:00 Problems Condition Condition Condition Status Onset Resolution Last Treating Co mments Source Name Details Category Date Date Treatment Clinician Date Medically Medically Disease Active Uni vers noncomplia noncomplia 09-02 it y of nt nt 00:00: [facility] Thrush Thrush Disease Active Univers 7-23 ity of 00:00: [facility] Obesity Obesity Disease Active Univers (BMI (BMI 4-20 ity of 30-39.9) 30-39.9) 00:00: [facility] Genital Genital Disease Active Univers warts warts 08-25 ity of 00:00: [facility] H/O: H/O: Disease Active Univers hysterecto hysterecto - it y of my my 00:00: [facility] 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 Social History Social Habit Start Date Stop Date Quantity Comments Source Exposure to Not sure [facility] SARS-CoV-2 [facility] (event) [place] Tobacco use and 2020-10-04 2020-10-04 Never used Universit y of exposure 00:00:00 00:00:00 [facility] Alcohol intake 2020-10-04 2020-10-04 Current University 00:00:00 00:00:00 non-drinker of [facility] alcohol [place] (finding) Sex Ass[birth year] At [birth year] Universit y of 00:00:00 00:00:00 [facility] Smoking Status Start Date Stop Date Source Never smoker [facility] Medications Ordered Filled Start Stop Current Ordering Indication Dosage Frequency Signature Comments Components Source Medication Medication Date Date Medication? Clinician (SIG) Name Name dexamethaso 2020- No 10mg 10 mg, Uni vers ne 10-04 Oral, ity of (DECADRON 18:30: 06:29 [place] 00 :00 dose, Tue Medi donald injection 10/04/20 at Bran ch 10 mg 1330, STAT dexamethaso 2020- No 10mg 10 mg, Uni vers ne 10-04- Oral, ity of (DECADRON 18:30: 06:29 [place] 00 :00 dose, [facility] donald injection 10/04/20 at [facility] ch 10 mg 1330, STAT ibuprofen 2020- No 600mg 600 mg, Uni vers (IBU) 10-04 08-24 Oral, ity of tablet 600 18:30: 17:35 ONCE, 1 [place] mg 00 :00 dose, [facility] 10/04/20 at Branch 1330, [place] ibuprofen 2020- No 600mg 600 mg, Uni vers (IBU) 10-04- Oral, ity of tablet 600 18:30: 17:35 ONCE, 1 [place] mg 00 :00 dose, [facility] 10/04/20 at Branch 1330, [place] losartan Yes [id number] 100mg Take 1 U nivers 100 mg 8-20 tablet by ity of tablet 00:00: mouth [place] 00 daily. Medical Branch losartan Yes [id number] 100mg Take 1 U nivers 100 mg 8-20 tablet by ity of tablet 00:00: mouth [place] 00 daily. Medical Branch losartan Yes [id number] 100mg Take 1 U nivers 100 mg 8-20 tablet by ity of tablet 00:00: mouth [place] 00 daily. Medical Branch nystatin 2020- No [id number] Take 6 mL Univers 100,000 7-15 07-30 by mouth 4 ity o f unit/mL 00:00: 04:59 (four) [place] suspension 00 :00 times Medical daily for Branch 14 days. amLODIPine Yes [id number] 10mg Take 1 Univers 10 mg 7-02 tablet by ity of tablet 00:00: mouth [place] 00 daily. Medical Branch atorvastati Yes [id number] 40mg Take 1 Univers n 40 mg 7-02 tablet by ity of tablet 00:00: mouth at [place] 00 bedtime. Medical Branch amLODIPine Yes [id number] 10mg Take 1 Univers 10 mg 7-02 tablet by ity of tablet 00:00: mouth [place] 00 daily. Medical Branch atorvastati Yes [id number] 40mg Take 1 Univers n 40 mg 7-02 tablet by ity of tablet 00:00: mouth at [place] 00 bedtime. Medical Branch losartan Yes [id number] 100mg Take 1 U nivers 100 mg 7-02 tablet by ity of tablet 00:00: mouth [place] 00 daily. Medical Branch amLODIPine Yes [id number] 10mg Take 1 Univers 10 mg 7-02 tablet by ity of tablet 00:00: mouth [place] 00 daily. Medical Branch atorvastati Yes [id number] 40mg Take 1 Univers n 40 mg 7-02 tablet by ity of tablet 00:00: mouth at [place] 00 bedtime. Medical Branch losartan Yes [id number] 100mg Take 1 U nivers 100 mg 7-02 tablet by ity of tablet 00:00: mouth [place] 00 daily. Medical Branch amLODIPine Yes [id number] 10mg Take 1 Univers 10 mg 7-02 tablet by ity of tablet 00:00: mouth [place] 00 daily. Medical Branch atorvastati Yes [id number] 40mg Take 1 Univers n 40 mg 7-02 tablet by ity of tablet 00:00: mouth at [place] 00 bedtime. Medical Branch losartan Yes [id number] 100mg Take 1 U nivers 100 mg 7-02 tablet by ity of tablet 00:00: mouth [place] 00 daily. Medical Branch amLODIPine Yes [id number] 10mg Take 1 Univers 10 mg 7-02 tablet by ity of tablet 00:00: mouth [place] 00 daily. Medical Branch atorvastati Yes [id number] 40mg Take 1 Univers n 40 mg 7-02 tablet by ity of tablet 00:00: mouth at [place] 00 bedtime. Medical Branch losartan Yes [id number] 100mg Take 1 U nivers 100 mg 7-02 tablet by ity of tablet 00:00: mouth [place] 00 daily. Medical Branch amLODIPine Yes [id number] 10mg Take 1 Univers 10 mg 7-02 tablet by ity of tablet 00:00: mouth [place] 00 daily. Medical Branch atorvastati Yes [id number] 40mg Take 1 Univers n 40 mg 7-02 tablet by ity of tablet 00:00: mouth at [place] 00 bedtime. Medical Branch amLODIPine Yes [id number] 10mg Take 1 Univers 10 mg 7-02 tablet by ity of tablet 00:00: mouth [place] 00 daily. Medical Branch atorvastati Yes [id number] 40mg Take 1 Univers n 40 mg 7-02 tablet by ity of tablet 00:00: mouth at [place] 00 bedtime. Medical Branch losartan 2020- No [id number] 100mg Take 1 Univers 100 mg 7- 08-20 tablet by ity of tablet 00:00: 00:00 mouth [place] 00 :00 daily. Medical Branch losartan 2020- No [id number] 100mg Take 1 Univers 100 mg 6-03 11- tablet by ity of tablet 00:00: 04:59 mouth [place] 00 :00 daily for Medical 90 days. Branch amLODIPine 2020- No [id number] 10mg Take 1 Univers 10 mg -11-02 tablet by ity of tablet 00:00: 04:59 mouth [place] 00 :00 daily for Medical 90 days. Branch atorvastati 2020- No [id number] 40mg Take 1 Univers n 40 mg -11-02 tablet by ity of tablet 00:00: 04:59 mouth at [place] 00 :00 bedtime Medical for 90 Branch days. losartan 2020- No [id number] 100mg Take 1 Univers 100 mg 6-03 11- tablet by ity of tablet 00:00: 04:59 mouth [place] 00 :00 daily for Medical 90 days. Branch amLODIPine 2020- No [id number] 10mg Take 1 Univers 10 mg 6-03 11- tablet by ity of tablet 00:00: 04:59 mouth [place] 00 :00 daily for Medical 90 days. Branch atorvastati 2020- No [id number] 40mg Take 1 Univers n 40 mg 6-03 11- tablet by ity of tablet 00:00: 04:59 mouth at [place] 00 :00 bedtime Medical for 90 Branch days. losartan 2020- No [id number] 100mg Take 1 Univers 100 mg 6-02 09- tablet by ity of tablet 00:00: 00:00 mouth [place] 00 :00 daily for Medical 90 days. Branch amLODIPine 2020- No [id number] 10mg Take 1 Univers 10 mg -02 09- tablet by ity of tablet 00:00: 00:00 mouth [place] 00 :00 daily for Medical 90 days. Branch atorvastati 2020- No [id number] 40mg Take 1 Univers n 40 mg -02 09- tablet by ity of tablet 00:00: 00:00 mouth at [place] 00 :00 bedtime Medical for 90 Branch days. losartan 2020- No [id number] 100mg Take 1 Univers 100 mg -02 09- tablet by ity of tablet 00:00: 00:00 mouth [place] 00 :00 daily for Medical 90 days. Branch amLODIPine 2020- No [id number] 10mg Take 1 Univers 10 mg -02 09- tablet by ity of tablet 00:00: 00:00 mouth [place] 00 :00 daily for Medical 90 days. Branch atorvastati 2020- No [id number] 40mg Take 1 Univers n 40 mg -02 09- tablet by ity of tablet 00:00: 00:00 mouth at [place] 00 :00 bedtime Medical for 90 Branch days. CLONIDINE Yes Take by Univ ers HCL 6-15 mouth. ity of (CLONIDINE 19:51: [place] ORAL) 08 Medical Branch ALPRAZOLAM Yes Take by Uni vers ORAL 6-15 mouth. ity of 19:51: [place] 08 Medical Branch promethazin Yes Take by Un inocente e HCl 6-15 mouth. ity of (PROMETHAZI 19:51: [place] NE ORAL) 08 Medical Branch CLONIDINE Yes Take by Univ ers HCL 6-15 mouth. ity of (CLONIDINE 19:51: [place] ORAL) 08 Medical Branch ALPRAZOLAM Yes Take by Uni vers ORAL 6-15 mouth. ity of 19:51: [place] 08 Medical Branch promethazin Yes Take by Un inocente e HCl 6-15 mouth. ity of (PROMETHAZI 19:51: [place] NE ORAL) 08 Medical Branch CLONIDINE Yes Take by Univ ers HCL 6-15 mouth. ity of (CLONIDINE 19:51: [place] ORAL) Medical Branch ALPRAZOLAM Yes Take by Uni vers ORAL 6-15 mouth. ity of 19:51: [address] Branch promethazin Yes Take by Un inocente e HCl 6-15 mouth. ity of (PROMETHAZI 19:51: [place] NE ORAL) [address] [place] [address] Branch CLONIDINE Yes Take by Univ ers HCL 6-15 mouth. ity of (CLONIDINE 19:51: [place] ORAL) [address] [place] [address] Branch ALPRAZOLAM Yes Take by Uni vers ORAL 6-15 mouth. ity of 19:51: [address] Branch promethazin Yes Take by Un inocente e HCl 6-15 mouth. ity of (PROMETHAZI 19:51: [place] NE ORAL) [address] [place] [address] Branch CLONIDINE Yes Take by Univ ers HCL 6-15 mouth. ity of (CLONIDINE 19:51: [place] ORAL) [address] [place] [address] Branch ALPRAZOLAM Yes Take by Uni vers ORAL 6-15 mouth. ity of 19:51: [address] Branch promethazin Yes Take by Un inocente e HCl 6-15 mouth. ity of (PROMETHAZI 19:51: [place] NE ORAL) Medical Branch CLONIDINE Yes Take by Univ ers HCL 6-15 mouth. ity of (CLONIDINE 19:51: [place] ORAL) [address] [place] [address] ALPRAZOLAM Yes Take by Uni vers ORAL 6-15 mouth. ity of 19:51: [address] Branch promethazin Yes Take by Un inocente e HCl 6-15 mouth. ity of (PROMETHAZI 19:51: [place] NE ORAL) Medical Branch CLONIDINE Yes Take by Univ ers HCL 6-15 mouth. ity of (CLONIDINE 19:51: [place] ORAL) Medical Branch ALPRAZOLAM Yes Take by Uni vers ORAL 6-15 mouth. ity of 19:51: [address] Branch promethazin Yes Take by Un inocente e HCl 6-15 mouth. ity of (PROMETHAZI 19:51: [place] NE ORAL) Medical Branch CLONIDINE Yes Take by Univ ers HCL 6-15 mouth. ity of (CLONIDINE 19:51: [place] ORAL) Medical Branch ALPRAZOLAM Yes Take by Uni vers ORAL 6-15 mouth. ity of 19:51: [address] Branch promethazin Yes Take by Un inocente e HCl 6-15 mouth. ity of (PROMETHAZI 19:51: [place] NE ORAL) [address] [place] [address] Branch CLONIDINE Yes Take by Univ ers HCL 6-15 mouth. ity of (CLONIDINE 19:51: [place] ORAL) [address] [place] [address] Branch ALPRAZOLAM Yes Take by Uni vers ORAL 6-15 mouth. ity of 19:51: [address] Branch promethazin Yes Take by Un inocente e HCl 6-15 mouth. ity of (PROMETHAZI 19:51: [place] NE ORAL) [address] [place] [address] Branch CLONIDINE Yes Take by Univ ers HCL 6-15 mouth. ity of (CLONIDINE 19:51: [place] ORAL) [address] [place] [address] Branch ALPRAZOLAM Yes Take by Uni vers ORAL 6-15 mouth. ity of 19:51: [address] Branch promethazin Yes Take by Un inocente e HCl 6-15 mouth. ity of (PROMETHAZI 19:51: [place] NE ORAL) Medical Branch CLONIDINE Yes Take by Univ ers HCL 6-15 mouth. ity of (CLONIDINE 19:51: [place] ORAL) [address] [place] [address] ALPRAZOLAM Yes Take by Uni vers ORAL 6-15 mouth. ity of 19:51: [address] Branch promethazin Yes Take by Un inocente e HCl 6-15 mouth. ity of (PROMETHAZI 19:51: [place] NE ORAL) Medical Branch CLONIDINE Yes Take by Univ ers HCL 6-15 mouth. ity of (CLONIDINE 19:51: [place] ORAL) Medical Branch ALPRAZOLAM Yes Take by Uni vers ORAL 6-15 mouth. ity of 19:51: [address] Branch promethazin Yes Take by Un inocente e HCl 6-15 mouth. ity of (PROMETHAZI 19:51: [place] NE ORAL) Medical Branch CLONIDINE Yes Take by Univ ers HCL 6-15 mouth. ity of (CLONIDINE 19:51: [place] ORAL) Medical Branch ALPRAZOLAM Yes Take by Uni vers ORAL 6-15 mouth. ity of 19:51: [address] Branch promethazin Yes Take by Un inocente e HCl 6-15 mouth. ity of (PROMETHAZI 19:51: [place] NE ORAL) [address] [place] [address] Branch CLONIDINE Yes Take by Univ ers HCL 6-15 mouth. ity of (CLONIDINE 19:51: [place] ORAL) [address] [place] [address] Branch ALPRAZOLAM Yes Take by Uni vers ORAL 6-15 mouth. ity of 19:51: [address] Branch promethazin Yes Take by Un inocente e HCl 6-15 mouth. ity of (PROMETHAZI 19:51: [place] NE ORAL) [address] [place] [address] Branch CLONIDINE Yes Take by Univ ers HCL 6-15 mouth. ity of (CLONIDINE 19:51: [place] ORAL) [address] [place] [address] Branch ALPRAZOLAM Yes Take by Uni vers ORAL 6-15 mouth. ity of 19:51: [address] Branch promethazin Yes Take by Un inocente e HCl 6-15 mouth. ity of (PROMETHAZI 19:51: [place] NE ORAL) Medical Branch CLONIDINE Yes Take by Univ ers HCL 6-15 mouth. ity of (CLONIDINE 19:51: [place] ORAL) [address] [place] [address] ALPRAZOLAM Yes Take by Uni vers ORAL 6-15 mouth. ity of 19:51: [address] Branch promethazin Yes Take by Un inocente e HCl 6-15 mouth. ity of (PROMETHAZI 19:51: [place] NE ORAL) Medical Branch CLONIDINE Yes Take by Univ ers HCL 6-15 mouth. ity of (CLONIDINE 19:51: [place] ORAL) Medical Branch ALPRAZOLAM Yes Take by Uni vers ORAL 6-15 mouth. ity of 19:51: [address] Branch promethazin Yes Take by Un inocente e HCl 6-15 mouth. ity of (PROMETHAZI 19:51: [place] NE ORAL) Medical Branch CLONIDINE Yes Take by Univ ers HCL 6-15 mouth. ity of (CLONIDINE 19:51: [place] ORAL) 08 [facility] Branch ALPRAZOLAM Yes Take by Uni vers ORAL 6-15 mouth. ity of 19:51: [address] Branch promethazin Yes Take by Un inocente e HCl 6-15 mouth. ity of (PROMETHAZI 19:51: [place] NE ORAL) [address] [place] [address] Branch CLONIDINE Yes Take by Univ ers HCL 6-15 mouth. ity of (CLONIDINE 19:51: [place] ORAL) [address] [place] [address] Branch ALPRAZOLAM Yes Take by Uni vers ORAL 6-15 mouth. ity of 19:51: [address] Branch promethazin Yes Take by Un inocente e HCl 6-15 mouth. ity of (PROMETHAZI 19:51: [place] NE ORAL) [address] [place] [address] CLONIDINE 0 Yes Take by Univ ers HCL 6-15 mouth. ity of (CLONIDINE 19:51: [place] ORAL) [address] [place] [address] ALPRAZOLAM Yes Take by Uni vers ORAL 6-15 mouth. ity of 19:51: [address] Branch promethazin Yes Take by Un inocente e HCl 6-15 mouth. ity of (PROMETHAZI 19:51: [place] NE ORAL) [address] [place] [address] Branch CLONIDINE Yes Take by Univ ers HCL 6-15 mouth. ity of (CLONIDINE 19:51: [place] ORAL) [address] [place] [address] Branch ALPRAZOLAM Yes Take by Uni vers ORAL 6-15 mouth. ity of 19:51: [address] promethazin Yes Take by Un inocente e HCl 6-15 mouth. ity of (PROMETHAZI 19:51: [place] NE ORAL) [address] [place] [address] NaCl 0.9% 2020- No 500mL at 999 Univ ers (NS) bolus 07-20 06-09 mL/hr, 500 it y of infusion 19:00: 18:20 mL, IV [place] 500 mL 00 :00 Infusion, Medical ONCE, 1 Branch dose, Sat07/20/20 at 1400, STAT fluticasone 0 Yes [id number] 2{spray Use 2 Univers propionate 07-20 } Sprays in ity of 50 00:00: each [place] mcg/actuati 00 nostril Medic al on nasal daily. Branch spray fluticasone Yes [id number] 2{puff} Inhale 2 Univers propionate 6-09 Puffs ity of (FLOVENT 00:00: every 12 [place] HFA) 220 00 (twelve) Medical mcg/actuati hours. Branch on inhaler albuterol Yes [id number] 2{puff} Inhale 2 Univers 90 6-09 Puffs ity of mcg/actuati 00:00: every 4 [place] on inhaler 00 (four) Medical hours as Branch needed for Wheezing or Shortness of Breath. traMADoL 50 Yes [id number] 50mg Take 1 Univ ers mg tablet 6-09 tablet by ity o f 00:00: mouth [place] 00 every 6 Medical (six) Branch hours as needed for Pain (scale 7-10). Indication s: acute pain fluticasone Yes [id number] 2{spray Use 2 Univers propionate 6-09 } Sprays in ity of 50 00:00: each [place] mcg/actuati 00 nostril Medic al on nasal daily. Branch spray fluticasone Yes [id number] 2{puff} Inhale 2 Univers propionate 6-09 Puffs ity of (FLOVENT 00:00: every 12 [place] HFA) 220 00 (twelve) Medical mcg/actuati hours. Branch on inhaler albuterol Yes [id number] 2{puff} Inhale 2 Univers 90 6-09 Puffs ity of mcg/actuati 00:00: every 4 [place] on inhaler 00 (four) Medical hours as Branch needed for Wheezing or Shortness of Breath. traMADoL 50 0 Yes [id number] 50mg Take 1 Univ ers mg tablet 6-09 tablet by ity o f 00:00: mouth [place] 00 every 6 Medical (six) Branch hours as needed for Pain (scale 7-10). Indication s: acute pain fluticasone Yes [id number] 2{spray Use 2 Univers propionate 6-09 } Sprays in ity of 50 00:00: each [place] mcg/actuati 00 nostril Medic al on nasal daily. Branch spray fluticasone Yes [id number] 2{puff} Inhale 2 Univers propionate 6-09 Puffs ity of (FLOVENT 00:00: every 12 [place] HFA) 220 00 (twelve) Medical mcg/actuati hours. Branch on inhaler albuterol Yes [id number] 2{puff} Inhale 2 Univers 90 6-09 Puffs ity of mcg/actuati 00:00: every 4 [place] on inhaler 00 (four) Medical hours as Branch needed for Wheezing or Shortness of Breath. traMADoL 50 0 Yes [id number] 50mg Take 1 Univ ers mg tablet 6-09 tablet by ity o f 00:00: mouth [place] 00 every 6 Medical (six) Branch hours as needed for Pain (scale 7-10). Indication s: acute pain fluticasone Yes [id number] 2{spray Use 2 Univers propionate 6-09 } Sprays in ity of 50 00:00: each [place] mcg/actuati 00 nostril Medic al on nasal daily. Branch spray fluticasone Yes [id number] 2{puff} Inhale 2 Univers propionate 6-09 Puffs ity of (FLOVENT 00:00: every 12 [place] HFA) 220 00 (twelve) Medical mcg/actuati hours. Branch on inhaler albuterol Yes [id number] 2{puff} Inhale 2 Univers 90 6-09 Puffs ity of mcg/actuati 00:00: every 4 [place] on inhaler 00 (four) Medical hours as Branch needed for Wheezing or Shortness of Breath. traMADoL 50 2020-0 Yes [id number] 50mg Take 1 Univ ers mg tablet 6-09 tablet by ity o f 00:00: mouth [place] 00 every 6 Medical (six) Branch hours as needed for Pain (scale 7-10). Indication s: acute pain fluticasone 2020-0 Yes [id number] 2{spray Use 2 Univers propionate 6-09 } Sprays in ity of 50 00:00: each [place] mcg/actuati 00 nostril Medic al on nasal daily. Branch spray fluticasone 0 Yes [id number] 2{puff} Inhale 2 Univers propionate 6-09 Puffs ity of (FLOVENT 00:00: every 12 [place] HFA) 220 00 (twelve) Medical mcg/actuati hours. Branch on inhaler albuterol Yes [id number] 2{puff} Inhale 2 Univers 90 6-09 Puffs ity of mcg/actuati 00:00: every 4 [place] on inhaler 00 (four) Medical hours as Branch needed for Wheezing or Shortness of Breath. traMADoL 50 2020-0 Yes [id number] 50mg Take 1 Univ ers mg tablet 6-09 tablet by ity o f 00:00: mouth [place] 00 every 6 Medical (six) Branch hours as needed for Pain (scale 7-10). Indication s: acute pain fluticasone Yes [id number] 2{spray Use 2 Univers propionate 6-09 } Sprays in ity of 50 00:00: each [place] mcg/actuati 00 nostril Medic al on nasal daily. Branch spray fluticasone Yes [id number] 2{puff} Inhale 2 Univers propionate 6-09 Puffs ity of (FLOVENT 00:00: every 12 [place] HFA) 220 00 (twelve) Medical mcg/actuati hours. Branch on inhaler albuterol Yes [id number] 2{puff} Inhale 2 Univers 90 6-09 Puffs ity of mcg/actuati 00:00: every 4 [place] on inhaler 00 (four) Medical hours as Branch needed for Wheezing or Shortness of Breath. traMADoL 50 0 Yes [id number] 50mg Take 1 Univ ers mg tablet 6-09 tablet by ity o f 00:00: mouth [place] 00 every 6 Medical (six) Branch hours as needed for Pain (scale 7-10). Indication s: acute pain fluticasone Yes [id number] 2{spray Use 2 Univers propionate 6-09 } Sprays in ity of 50 00:00: each [place] mcg/actuati 00 nostril Medic al on nasal daily. Branch spray fluticasone Yes [id number] 2{puff} Inhale 2 Univers propionate 6-09 Puffs ity of (FLOVENT 00:00: every 12 [place] HFA) 220 00 (twelve) Medical mcg/actuati hours. Branch on inhaler albuterol Yes [id number] 2{puff} Inhale 2 Univers 90 6-09 Puffs ity of mcg/actuati 00:00: every 4 [place] on inhaler 00 (four) Medical hours as Branch needed for Wheezing or Shortness of Breath. traMADoL 50 0 Yes [id number] 50mg Take 1 Univ ers mg tablet 6-09 tablet by ity o f 00:00: mouth [place] 00 every 6 Medical (six) Branch hours as needed for Pain (scale 7-10). Indication s: acute pain fluticasone 0 Yes [id number] 2{spray Use 2 [facility] propionate 6-09 } Sprays in ity of 50 00:00: each [place] mcg/actuati 00 nostril Medic al on nasal daily. Branch spray fluticasone 2020-0 Yes [id number] 2{puff} Inhale 2 [facility] propionate 6-09 Puffs ity of (FLOVENT 00:00: every 12 [place] HFA) 220 00 (twelve) Medical mcg/actuati hours. Branch on inhaler albuterol Yes [id number] 2{puff} Inhale 2 [facility] 90 6-09 Puffs ity of mcg/actuati 00:00: every 4 [place] on inhaler 00 (four) Medical hours as Branch needed for Wheezing or Shortness of Breath. traMADoL 50 0 Yes [id number] 50mg Take 1 Univ ers mg tablet 6-09 tablet by ity o f 00:00: mouth [place] 00 every 6 Medical (six) Branch hours as needed for Pain (scale 7-10). Indication s: acute pain fluticasone 2020-0 Yes [id number] 2{spray Use 2 [facility] propionate 6-09 } Sprays in ity of 50 00:00: each [place] mcg/actuati 00 nostril Medic al on nasal daily. Branch spray fluticasone 2020-0 Yes [id number] 2{puff} Inhale 2 [facility] propionate 6-09 Puffs ity of (FLOVENT 00:00: every 12 [place] HFA) 220 00 (twelve) Medical mcg/actuati hours. Branch on inhaler albuterol 2020-0 Yes [id number] 2{puff} Inhale 2 [facility] 90 6-09 Puffs ity of mcg/actuati 00:00: every 4 [place] on inhaler 00 (four) Medical hours as Branch needed for Wheezing or Shortness of Breath. traMADoL 50 2020-0 Yes [id number] 50mg Take 1 Univ ers mg tablet 6-09 tablet by ity o f 00:00: mouth [place] 00 every 6 Medical (six) Branch hours as needed for Pain (scale 7-10). Indication s: acute pain fluticasone 0 Yes [id number] 2{spray Use 2 [facility] propionate 6-09 } Sprays in ity of 50 00:00: each [place] mcg/actuati 00 nostril Medic al on nasal daily. Branch spray fluticasone 0 Yes [id number] 2{puff} Inhale 2 [facility] propionate 6-09 Puffs ity of (FLOVENT 00:00: every 12 [place] HFA) 220 00 (twelve) Medical mcg/actuati hours. Branch on inhaler albuterol 0 Yes [id number] 2{puff} Inhale 2 [facility] 90 6-09 Puffs ity of mcg/actuati 00:00: every 4 [place] on inhaler 00 (four) Medical hours as Branch needed for Wheezing or Shortness of Breath. traMADoL 50 0 Yes [id number] 50mg Take 1 Univ ers mg tablet 6-09 tablet by ity o f 00:00: mouth [place] 00 every 6 Medical (six) Branch hours as needed for Pain (scale 7-10). Indication s: acute pain fluticasone Yes [id number] 2{spray Use 2 [facility] propionate 6-09 } Sprays in ity of 50 00:00: each [place] mcg/actuati 00 nostril Medic al on nasal daily. Branch spray fluticasone 0 Yes [id number] 2{puff} Inhale 2 [facility] propionate 6-09 Puffs ity of (FLOVENT 00:00: every 12 [place] HFA) 220 00 (twelve) Medical mcg/actuati hours. Branch on inhaler albuterol 0 Yes [id number] 2{puff} Inhale 2 [facility] 90 6-09 Puffs ity of mcg/actuati 00:00: every 4 [place] on inhaler 00 (four) Medical hours as Branch needed for Wheezing or Shortness of Breath. traMADoL 50 2020-0 Yes [id number] 50mg Take 1 Univ ers mg tablet 6-09 tablet by ity o f 00:00: mouth [place] 00 every 6 Medical (six) Branch hours as needed for Pain (scale 7-10). Indication s: acute pain fluticasone Yes [id number] 2{spray Use 2 [facility] propionate 6-09 } Sprays in ity of 50 00:00: each [place] mcg/actuati 00 nostril Medic al on nasal daily. Branch spray fluticasone Yes [id number] 2{puff} Inhale 2 [facility] propionate 6-09 Puffs ity of (FLOVENT 00:00: every 12 [place] HFA) 220 00 (twelve) Medical mcg/actuati hours. Branch on inhaler albuterol Yes [id number] 2{puff} Inhale 2 [facility] 90 6-09 Puffs ity of mcg/actuati 00:00: every 4 [place] on inhaler 00 (four) Medical hours as Branch needed for Wheezing or Shortness of Breath. traMADoL 50 Yes [id number] 50mg Take 1 [facility] mg tablet 6-09 tablet by ity o f 00:00: mouth [place] 00 every 6 Medical (six) Branch hours as needed for Pain (scale 7-10). Indication s: acute pain fluticasone Yes [id number] 2{spray Use 2 [facility] propionate 6-09 } Sprays in ity of 50 00:00: each [place] mcg/actuati 00 nostril Medic al on nasal daily. Branch spray fluticasone Yes [id number] 2{puff} Inhale 2 [facility] propionate 6-09 Puffs ity of (FLOVENT 00:00: every 12 [place] HFA) 220 00 (twelve) Medical mcg/actuati hours. Branch on inhaler albuterol Yes [id number] 2{puff} Inhale 2 [facility] 90 6-09 Puffs ity of mcg/actuati 00:00: every 4 [place] on inhaler 00 (four) Medical hours as Branch needed for Wheezing or Shortness of Breath. traMADoL 50 0 Yes [id number] 50mg Take 1 [facility] mg tablet 6-09 tablet by ity o f 00:00: mouth [place] 00 every 6 Medical (six) Branch hours as needed for Pain (scale 7-10). Indication s: acute pain fluticasone Yes [id number] 2{spray Use 2 [facility] propionate 6-09 } Sprays in ity of 50 00:00: each [place] mcg/actuati 00 nostril Medic al on nasal daily. Branch spray fluticasone Yes [id number] 2{puff} Inhale 2 [facility] propionate 6-09 Puffs ity of (FLOVENT 00:00: every 12 [place] HFA) 220 00 (twelve) Medical mcg/actuati hours. Branch on inhaler albuterol Yes [id number] 2{puff} Inhale 2 [facility] 90 6-09 Puffs ity of mcg/actuati 00:00: every 4 [place] on inhaler 00 (four) Medical hours as Branch needed for Wheezing or Shortness of Breath. traMADoL 50 Yes [id number] 50mg Take 1 [facility] mg tablet 6-09 tablet by ity o f 00:00: mouth [place] 00 every 6 Medical (six) Branch hours as needed for Pain (scale 7-10). Indication s: acute pain fluticasone Yes [id number] 2{spray Use 2 [facility] propionate 6-09 } Sprays in ity of 50 00:00: each [place] mcg/actuati 00 nostril Medic al on nasal daily. Branch spray fluticasone Yes [id number] 2{puff} Inhale 2 [facility] propionate 6-09 Puffs ity of (FLOVENT 00:00: every 12 [place] HFA) 220 00 (twelve) Medical mcg/actuati hours. Branch on inhaler albuterol Yes [id number] 2{puff} Inhale 2 [facility] 90 6-09 Puffs ity of mcg/actuati 00:00: every 4 [place] on inhaler 00 (four) Medical hours as Branch needed for Wheezing or Shortness of Breath. traMADoL 50 0 Yes [id number] 50mg Take 1 [facility] mg tablet 6-09 tablet by ity o f 00:00: mouth [place] 00 every 6 Medical (six) Branch hours as needed for Pain (scale 7-10). Indication s: acute pain fluticasone Yes [id number] 2{spray Use 2 [facility] propionate 6-09 } Sprays in ity of 50 00:00: each [place] mcg/actuati 00 nostril Medic al on nasal daily. Branch spray fluticasone Yes [id number] 2{puff} Inhale 2 [facility] propionate 6-09 Puffs ity of (FLOVENT 00:00: every 12 [place] HFA) 220 00 (twelve) Medical mcg/actuati hours. Branch on inhaler albuterol Yes [id number] 2{puff} Inhale 2 [facility] 90 6-09 Puffs ity of mcg/actuati 00:00: every 4 [place] on inhaler 00 (four) Medical hours as Branch needed for Wheezing or Shortness of Breath. traMADoL 50 Yes [id number] 50mg Take 1 [facility] mg tablet 6-09 tablet by ity o f 00:00: mouth [place] 00 every 6 Medical (six) Branch hours as needed for Pain (scale 7-10). Indication s: acute pain fluticasone Yes [id number] 2{spray Use 2 [facility] propionate 6-09 } Sprays in ity of 50 00:00: each [place] mcg/actuati 00 nostril Medic al on nasal daily. Branch spray fluticasone Yes [id number] 2{puff} Inhale 2 [facility] propionate 6-09 Puffs ity of (FLOVENT 00:00: every 12 [place] HFA) 220 00 (twelve) Medical mcg/actuati hours. Branch on inhaler albuterol Yes [id number] 2{puff} Inhale 2 [facility] 90 6-09 Puffs ity of mcg/actuati 00:00: every 4 [place] on inhaler 00 (four) Medical hours as Branch needed for Wheezing or Shortness of Breath. traMADoL 50 0 Yes [id number] 50mg Take 1 [facility] mg tablet 6-09 tablet by ity o f 00:00: mouth [place] 00 every 6 Medical (six) Branch hours as needed for Pain (scale 7-10). Indication s: acute pain fluticasone Yes [id number] 2{spray Use 2 [facility] propionate 6-09 } Sprays in ity of 50 00:00: each [place] mcg/actuati 00 nostril Medic al on nasal daily. Branch spray fluticasone Yes [id number] 2{puff} Inhale 2 [facility] propionate 6-09 Puffs ity of (FLOVENT 00:00: every 12 [place] HFA) 220 00 (twelve) Medical mcg/actuati hours. Branch on inhaler albuterol Yes [id number] 2{puff} Inhale 2 [facility] 90 6-09 Puffs ity of mcg/actuati 00:00: every 4 [place] on inhaler 00 (four) Medical hours as Branch needed for Wheezing or Shortness of Breath. traMADoL 50 Yes [id number] 50mg Take 1 [facility] mg tablet 6-09 tablet by ity o f 00:00: mouth [place] 00 every 6 Medical (six) Branch hours as needed for Pain (scale 7-10). Indication s: acute pain fluticasone Yes [id number] 2{spray Use 2 [facility] propionate 6-09 } Sprays in ity of 50 00:00: each [place] mcg/actuati 00 nostril Medic al on nasal daily. Branch spray fluticasone Yes [id number] 2{puff} Inhale 2 [facility] propionate 6-09 Puffs ity of (FLOVENT 00:00: every 12 [place] HFA) 220 00 (twelve) Medical mcg/actuati hours. Branch on inhaler albuterol Yes [id number] 2{puff} Inhale 2 [facility] 90 6-09 Puffs ity of mcg/actuati 00:00: every 4 [place] on inhaler 00 (four) Medical hours as Branch needed for Wheezing or Shortness of Breath. traMADoL 50 2020-0 Yes [id number] 50mg Take 1 [facility] mg tablet 6-09 tablet by ity o f 00:00: mouth [place] 00 every 6 Medical (six) Branch hours as needed for Pain (scale 7-10). Indication s: acute pain fluticasone 0 Yes [id number] 2{spray Use 2 [facility] propionate 6-09 } Sprays in ity of 50 00:00: each [place] mcg/actuati 00 nostril Medic al on nasal daily. Branch spray fluticasone Yes [id number] 2{puff} Inhale 2 [facility] propionate 6-09 Puffs ity of (FLOVENT 00:00: every 12 [place] HFA) 220 00 (twelve) Medical mcg/actuati hours. Branch on inhaler albuterol Yes [id number] 2{puff} Inhale 2 [facility] 90 6-09 Puffs ity of mcg/actuati 00:00: every 4 [place] on inhaler 00 (four) Medical hours as Branch needed for Wheezing or Shortness of Breath. traMADoL 50 2020-0 Yes [id number] 50mg Take 1 [facility] mg tablet 6-09 tablet by ity o f 00:00: mouth [place] 00 every 6 Medical (six) Branch hours as needed for Pain (scale 7-10). Indication s: acute pain fluticasone Yes [id number] 2{spray Use 2 [facility] propionate 6-09 } Sprays in ity of 50 00:00: each [place] mcg/actuati 00 nostril Medic al on nasal daily. Branch spray fluticasone Yes [id number] 2{puff} Inhale 2 [facility] propionate 6-09 Puffs ity of (FLOVENT 00:00: every 12 [place] HFA) 220 00 (twelve) Medical mcg/actuati hours. Branch on inhaler albuterol Yes [id number] 2{puff} Inhale 2 [facility] 90 6-09 Puffs ity of mcg/actuati 00:00: every 4 [place] on inhaler 00 (four) Medical hours as Branch needed for Wheezing or Shortness of Breath. traMADoL 50 0 Yes [id number] 50mg Take 1 [facility] mg tablet 6-09 tablet by ity o f 00:00: mouth [place] 00 every 6 Medical (six) Branch hours as needed for Pain (scale 7-10). Indication s: acute pain fluticasone Yes [id number] 2{spray Use 2 [facility] propionate 6-09 } Sprays in ity of 50 00:00: each [place] mcg/actuati 00 nostril Medic al on nasal daily. Branch spray fluticasone 0 Yes [id number] 2{puff} Inhale 2 [facility] propionate 6-09 Puffs ity of (FLOVENT 00:00: every 12 [place] HFA) 220 00 (twelve) Medical mcg/actuati hours. Branch on inhaler albuterol Yes [id number] 2{puff} Inhale 2 [facility] 90 6-09 Puffs ity of mcg/actuati 00:00: every 4 [place] on inhaler 00 (four) Medical hours as Branch needed for Wheezing or Shortness of Breath. traMADoL 50 Yes [id number] 50mg Take 1 [facility] mg tablet 6-09 tablet by ity o f 00:00: mouth [place] 00 every 6 Medical (six) Branch hours as needed for Pain (scale 7-10). Indication s: acute pain ibuprofen 2020- No 600mg 600 mg, [facility] vers (IBU) 07-01 Oral, ity of tablet 600 21:15: 20:23 ONCE, 1 [place] mg 00 :00 dose, Fri Medical 07/01/20 at Branch 1615, [place] acetaminoph 2020- No 1000mg 1,000 mg, [facility] en 07-01 Oral, ity of (TYLENOL) 20:45: 19:54 ONCE, 1 [place] tablet 00 :00 dose, Fri [facility] 1,000 mg 07/01/20 at Branc h 1545, Routine dexamethaso 2020- No 10mg 10 mg, [facility] vers ne 07-01 Oral, ity of (DECADRON 20:45: 19:53 ONCE, 1 [place] PHOSPHATE) 00 :00 dose, Fri Medi donald injection 07/01/20 at Bran ch 10 mg 1545, STAT ibuprofen Yes [id number] 600mg Take 1 [facility] 600 mg 5-21 tablet by ity of tablet 00:00: mouth [place] 00 every 6 Medical (six) Branch hours as needed for Pain (scale 4-6). cyclobenzap Yes [id number] 5mg Take 1 [facility] rine 5 mg 5-21 tablet by ity o f tablet 00:00: mouth 3 [place] 00 (three) Medical times Branch daily as needed for Muscle Spasms. ibuprofen Yes [id number] 600mg Take 1 [facility] 600 mg 5-21 tablet by ity of tablet 00:00: mouth [place] 00 every 6 Medical (six) Branch hours as needed for Pain (scale 4-6). cyclobenzap 0 Yes [id number] 5mg Take 1 [facility] rine 5 mg 5-21 tablet by ity o f tablet 00:00: mouth 3 [place] 00 (three) Medical times Branch daily as needed for Muscle Spasms. albuterol 2021-0 Yes [id number] 2{puff} Inhale 2 [facility] 90 5-21 Puffs ity of mcg/actuati 00:00: every 4 [place] on inhaler 00 (four) Medical hours as Branch needed for Wheezing or Shortness of Breath. ibuprofen 2020-0 Yes [id number] 600mg Take 1 [facility] 600 mg 5-21 tablet by ity of tablet 00:00: mouth [place] 00 every 6 Medical (six) Branch hours as needed for Pain (scale 4-6). cyclobenzap 2020-0 Yes [id number] 5mg Take 1 [facility] rine 5 mg 5-21 tablet by ity o f tablet 00:00: mouth 3 [place] 00 (three) Medical times Branch daily as needed for Muscle Spasms. ibuprofen 2020-0 Yes [id number] 600mg Take 1 [facility] 600 mg 5-21 tablet by ity of tablet 00:00: mouth [place] 00 every 6 Medical (six) Branch hours as needed for Pain (scale 4-6). cyclobenzap 2020-0 Yes [id number] 5mg Take 1 [facility] rine 5 mg 5-21 tablet by ity o f tablet 00:00: mouth 3 [place] 00 (three) Medical times Branch daily as needed for Muscle Spasms. ibuprofen 2020-0 Yes [id number] 600mg Take 1 [facility] 600 mg 5-21 tablet by ity of tablet 00:00: mouth [place] 00 every 6 Medical (six) Branch hours as needed for Pain (scale 4-6). cyclobenzap 2020-0 Yes [id number] 5mg Take 1 [facility] rine 5 mg 5-21 tablet by ity o f tablet 00:00: mouth 3 [place] 00 (three) Medical times Branch daily as needed for Muscle Spasms. ibuprofen 2020-0 Yes [id number] 600mg Take 1 [facility] 600 mg 5-21 tablet by ity of tablet 00:00: mouth [place] 00 every 6 Medical (six) Branch hours as needed for Pain (scale 4-6). cyclobenzap 202-0 Yes [id number] 5mg Take 1 [facility] rine 5 mg 5-21 tablet by ity o f tablet 00:00: mouth 3 [place] 00 (three) Medical times Branch daily as needed for Muscle Spasms. ibuprofen 2020-0 Yes [id number] 600mg Take 1 [facility] 600 mg 5-21 tablet by ity of tablet 00:00: mouth [place] 00 every 6 Medical (six) Branch hours as needed for Pain (scale 4-6). cyclobenzap 2021-0 Yes [id number] 5mg Take 1 [facility] rine 5 mg 5-21 tablet by ity o f tablet 00:00: mouth 3 [place] 00 (three) Medical times Branch daily as needed for Muscle Spasms. ibuprofen 2021-0 Yes [id number] 600mg Take 1 [facility] 600 mg 5-21 tablet by ity of tablet 00:00: mouth [place] 00 every 6 Medical (six) Branch hours as needed for Pain (scale 4-6). cyclobenzap 2021-0 Yes [id number] 5mg Take 1 [facility] rine 5 mg 5-21 tablet by ity o f tablet 00:00: mouth 3 [place] 00 (three) Medical times Branch daily as needed for Muscle Spasms. ibuprofen 1-0 Yes [id number] 600mg Take 1 [facility] 600 mg 5-21 tablet by ity of tablet 00:00: mouth [place] 00 every 6 Medical (six) Branch hours as needed for Pain (scale 4-6). cyclobenzap 2021-0 Yes [id number] 5mg Take 1 [facility] rine 5 mg 5-21 tablet by ity o f tablet 00:00: mouth 3 [place] 00 (three) Medical times Branch daily as needed for Muscle Spasms. ibuprofen 1-0 Yes [id number] 600mg Take 1 [facility] 600 mg 5-21 tablet by ity of tablet 00:00: mouth [place] 00 every 6 Medical (six) Branch hours as needed for Pain (scale 4-6). cyclobenzap 2021-0 Yes [id number] 5mg Take 1 [facility] rine 5 mg 5-21 tablet by ity o f tablet 00:00: mouth 3 [place] 00 (three) Medical times Branch daily as needed for Muscle Spasms. ibuprofen 2021-0 Yes [id number] 600mg Take 1 [facility] 600 mg 5-21 tablet by ity of tablet 00:00: mouth [place] 00 every 6 Medical (six) Branch hours as needed for Pain (scale 4-6). cyclobenzap 2021-0 Yes [id number] 5mg Take 1 [facility] rine 5 mg 5-21 tablet by ity o f tablet 00:00: mouth 3 [place] 00 (three) Medical times Branch daily as needed for Muscle Spasms. ibuprofen 2021-0 Yes [id number] 600mg Take 1 [facility] 600 mg 5-21 tablet by ity of tablet 00:00: mouth [place] 00 every 6 Medical (six) Branch hours as needed for Pain (scale 4-6). cyclobenzap 2021-0 Yes [id number] 5mg Take 1 [facility] rine 5 mg 5-21 tablet by ity o f tablet 00:00: mouth 3 [place] 00 (three) Medical times Branch daily as needed for Muscle Spasms. ibuprofen 2021-0 Yes [id number] 600mg Take 1 [facility] 600 mg 5-21 tablet by ity of tablet 00:00: mouth [place] 00 every 6 Medical (six) Branch hours as needed for Pain (scale 4-6). cyclobenzap 2021-0 Yes [id number] 5mg Take 1 [facility] rine 5 mg 5-21 tablet by ity o f tablet 00:00: mouth 3 [place] 00 (three) Medical times Branch daily as needed for Muscle Spasms. ibuprofen 2020-0 Yes [id number] 600mg Take 1 [facility] 600 mg 5-21 tablet by ity of tablet 00:00: mouth [place] 00 every 6 Medical (six) Branch hours as needed for Pain (scale 4-6). cyclobenzap 2021-0 Yes [id number] 5mg Take 1 [facility] rine 5 mg 5-21 tablet by ity o f tablet 00:00: mouth 3 [place] 00 (three) Medical times Branch daily as needed for Muscle Spasms. ibuprofen 2021-0 Yes [id number] 600mg Take 1 [facility] 600 mg 5-21 tablet by ity of tablet 00:00: mouth [place] 00 every 6 Medical (six) Branch hours as needed for Pain (scale 4-6). cyclobenzap 2021-0 Yes [id number] 5mg Take 1 [facility] rine 5 mg 5-21 tablet by ity o f tablet 00:00: mouth 3 [place] 00 (three) Medical times Branch daily as needed for Muscle Spasms. ibuprofen 2021-0 Yes [id number] 600mg Take 1 [facility] 600 mg 5-21 tablet by ity of tablet 00:00: mouth [place] 00 every 6 Medical (six) Branch hours as needed for Pain (scale 4-6). cyclobenzap 2021-0 Yes [id number] 5mg Take 1 [facility] rine 5 mg 5-21 tablet by ity o f tablet 00:00: mouth 3 [place] 00 (three) Medical times Branch daily as needed for Muscle Spasms. ibuprofen 2021-0 Yes [id number] 600mg Take 1 [facility] 600 mg 5-21 tablet by ity of tablet 00:00: mouth [place] 00 every 6 Medical (six) Branch hours as needed for Pain (scale 4-6). cyclobenzap 2021-0 Yes [id number] 5mg Take 1 [facility] rine 5 mg 5-21 tablet by ity o f tablet 00:00: mouth 3 [place] 00 (three) Medical times Branch daily as needed for Muscle Spasms. ibuprofen 2021-0 Yes [id number] 600mg Take 1 [facility] 600 mg 5-21 tablet by ity of tablet 00:00: mouth [place] 00 every 6 Medical (six) Branch hours as needed for Pain (scale 4-6). cyclobenzap 1-0 Yes [id number] 5mg Take 1 [facility] rine 5 mg 5-21 tablet by ity o f tablet 00:00: mouth 3 00 (three) Medical times Branch daily as needed for Muscle Spasms. ibuprofen 1-0 Yes [id number] 600mg Take 1 [facility] 600 mg 5-21 tablet by ity of tablet 00:00: mouth [place] 00 every 6 Medical (six) Branch hours as needed for Pain (scale 4-6). cyclobenzap 1-0 Yes [id number] 5mg Take 1 [facility] rine 5 mg 5-21 tablet by ity o f tablet 00:00: mouth 3 00 (three) Medical times Branch daily as needed for Muscle Spasms. ibuprofen 2021-0 Yes [id number] 600mg Take 1 [facility] 600 mg 5-21 tablet by ity of tablet 00:00: mouth [place] 00 every 6 Medical (six) Branch hours as needed for Pain (scale 4-6). cyclobenzap 2021-0 Yes [id number] 5mg Take 1 [facility] rine 5 mg 5-21 tablet by ity o f tablet 00:00: mouth 3 [place] 00 (three) Medical times Branch daily as needed for Muscle Spasms. ibuprofen 2021-0 Yes [id number] 600mg Take 1 [facility] 600 mg 5-21 tablet by ity of tablet 00:00: mouth [place] 00 every 6 Medical (six) Branch hours as needed for Pain (scale 4-6). cyclobenzap 2021-0 Yes [id number] 5mg Take 1 [facility] rine 5 mg 5-21 tablet by ity o f tablet 00:00: mouth 3 (three) Medical times Branch daily as needed for Muscle Spasms. ibuprofen 2020-0 Yes [id number] 600mg Take 1 [facility] 600 mg 5-21 tablet by ity of tablet 00:00: mouth [place] 00 every 6 Medical (six) Branch hours as needed for Pain (scale 4-6). cyclobenzap 2020-0 Yes [id number] 5mg Take 1 [facility] rine 5 mg 5-21 tablet by ity o f tablet 00:00: mouth 3 00 (three) Medical times Branch daily as needed for Muscle Spasms. ibuprofen 2020-0 Yes [id number] 600mg Take 1 [facility] 600 mg 5-21 tablet by ity of tablet 00:00: mouth 00 every 6 Medical (six) Branch hours as needed for Pain (scale 4-6). cyclobenzap 2020-0 Yes [id number] 5mg Take 1 [facility] rine 5 mg 5-21 tablet by ity o f tablet 00:00: mouth 3 (three) Medical times Branch daily as needed for Muscle Spasms. albuterol 2020- No [id number] 2{puff} Inhale 2 [facility] 90 5-21 06-09 Puffs ity of mcg/actuati 00:00: 00:00 every 4 [place] on inhaler 00 :00 (four) Medical hours as Branch needed for Wheezing or Shortness of Breath. losartan Yes 100mg Take 100 [facility] ers 100 mg 5-07 mg by ity of tablet 00:00: mouth 00 daily. Medical Branch atorvastati Yes 40mg Take 40 mg [facility] n 40 mg 5-07 by mouth ity of tablet 00:00: daily. Medical Branch losartan 0 Yes 100mg Take 100 [facility] ers 100 mg 5-07 mg by ity of tablet 00:00: mouth [place] 00 daily. Medical Branch atorvastati 0 Yes 40mg Take 40 mg [facility] n 40 mg 5-07 by mouth ity of tablet 00:00: daily. Medical Branch losartan 0 Yes 100mg Take 100 [facility] ers 100 mg 5-07 mg by ity of tablet 00:00: mouth [place] 00 daily. Medical Branch atorvastati 2020-0 Yes 40mg Take 40 mg [facility] n 40 mg 5-07 by mouth ity of tablet 00:00: daily. Medical Branch losartan 2020-0 Yes 100mg Take 100 [facility] ers 100 mg 5-07 mg by ity of tablet 00:00: mouth [place] 00 daily. Medical Branch atorvastati 2020-0 Yes 40mg Take 40 mg [facility] n 40 mg 5-07 by mouth ity of tablet 00:00: daily. Medical Branch losartan 1-0 Yes 100mg Take 100 [facility] 100 mg 5-07 mg by ity of tablet 00:00: mouth [place] 00 daily. Medical Branch atorvastati 2020-0 Yes 40mg Take 40 mg [facility] n 40 mg 5-07 by mouth ity of tablet 00:00: daily. Medical Branch losartan 1-0 Yes 100mg Take 100 [facility] 100 mg 5-07 mg by ity of tablet 00:00: mouth [place] 00 daily. Medical Branch atorvastati 2020-0 Yes 40mg Take 40 mg [facility] n 40 mg 5-07 by mouth ity of tablet 00:00: daily. Medical Branch losartan 2020-0 Yes 100mg Take 100 [facility] 100 mg 5-07 mg by ity of tablet 00:00: mouth [place] 00 daily. Medical Branch atorvastati 1-0 Yes 40mg Take 40 mg [facility] n 40 mg 5-07 by mouth ity of tablet 00:00: daily. Medical Branch losartan 1-0 Yes 100mg Take 100 [facility] 100 mg 5-07 mg by ity of tablet 00:00: mouth [place] 00 daily. Medical Branch atorvastati 1-0 Yes 40mg Take 40 mg [facility] n 40 mg 5-07 by mouth ity of tablet 00:00: daily. Medical Branch losartan 1-0 Yes 100mg Take 100 [facility] ers 100 mg 5-07 mg by ity of tablet 00:00: mouth [place] 00 daily. Medical Branch atorvastati 1-0 Yes 40mg Take 40 mg [facility] n 40 mg 5-07 by mouth ity of tablet 00:00: daily. Medical Branch losartan 1-0 Yes 100mg Take 100 [facility] 100 mg 5-07 mg by ity of tablet 00:00: mouth [place] 00 daily. Medical Branch atorvastati 2020-0 Yes 40mg Take 40 mg [facility] n 40 mg 5-07 by mouth ity of tablet 00:00: daily. [place] 00 Medical Branch losartan 2020-0 2021- No 100mg Take 100 [facility] vers 100 mg 5-07 06-23 mg by ity of tablet 00:00: 00:00 mouth [place] 00 :00 daily. Medical Branch atorvastati 2020-0 2021- No 40mg Take 40 mg [facility] n 40 mg 5-07 06-23 by mouth ity of tablet 00:00: 00:00 daily. [place] 00 :00 Medical Branch losartan 2020-0 1- No 100mg Take 100 [facility] vers 100 mg 5-07 06-23 mg by ity of tablet 00:00: 00:00 mouth [place] 00 :00 daily. Medical Branch atorvastati 2020-0 2020- No 40mg Take 40 mg [facility] n 40 mg 5-07 06-23 by mouth ity of tablet 00:00: 00:00 daily. [place] 00 :00 Medical Branch losartan 2020-0 2021- No 100mg Take 100 [facility] vers 100 mg 5-07 06-23 mg by ity of tablet 00:00: 00:00 mouth [place] 00 :00 daily. Medical Branch atorvastati 2020-0 2020- No 40mg Take 40 mg [facility] n 40 mg 5-07 06-23 by mouth ity of tablet 00:00: 00:00 daily. [place] 00 :00 Medical Branch ibuprofen 2018-02 Yes [id number] 800mg Take 1 [facility] 800 mg 0-07 tablet by ity of tablet 00:00: mouth [place] 00 every 8 Medical (eight) Branch hours as needed for Pain (scale 1-3). chlorhexidi 2018-02 Yes [id number] 15mL [place] and [facility] ne 0-07 spit out ity of (PERIDEX) 00:00: 15 mL 2 [place] 0.12 % 00 (two) Medical mouthwash times Branch daily. ibuprofen 2018-02 Yes [id number] 800mg Take 1 [facility] n[facility] 800 mg 0-07 tablet by ity of tablet 00:00: mouth [place] 00 every 8 Medical (eight) Branch hours as needed for Pain (scale 1-3). chlorhexidi 2018-02 Yes [id number] 15mL Swish and [facility] ne 0-07 spit out ity of (PERIDEX) 00:00: 15 mL 2 [place] 0.12 % 00 (two) Medical mouthwash times Branch daily. ibuprofen 2018-02 Yes [id number] 800mg Take 1 [facility] n[facility] 800 mg 0-07 tablet by ity of tablet 00:00: mouth [place] 00 every 8 Medical (eight) Branch hours as needed for Pain (scale 1-3). chlorhexidi 2018-02 Yes [id number] 15mL Swish and [facility] ne 0-07 spit out ity of (PERIDEX) 00:00: 15 mL 2 [place] 0.12 % 00 (two) Medical mouthwash times Branch daily. ibuprofen 2018-02 Yes [id number] 800mg Take 1 [facility] n[facility] 800 mg 0-07 tablet by ity of tablet 00:00: mouth [place] 00 every 8 Medical (eight) Branch hours as needed for Pain (scale 1-3). chlorhexidi 2018-02 Yes [id number] 15mL Swish and [facility] ne 0-07 spit out ity of (PERIDEX) 00:00: 15 mL 2 [place] 0.12 % 00 (two) Medical mouthwash times Branch daily. ibuprofen 2018-02 Yes [id number] 800mg Take 1 [facility] n[facility] 800 mg 0-07 tablet by ity of tablet 00:00: mouth [place] 00 every 8 Medical (eight) Branch hours as needed for Pain (scale 1-3). chlorhexidi 2018-02 Yes [id number] 15mL Swish and [facility] ne 0-07 spit out ity of (PERIDEX) 00:00: 15 mL 2 [place] 0.12 % 00 (two) Medical mouthwash times Branch daily. ibuprofen 2018-02 Yes [id number] 800mg Take 1 [facility] n[facility] 800 mg 0-07 tablet by ity of tablet 00:00: mouth [place] 00 every 8 Medical (eight) Branch hours as needed for Pain (scale 1-3). chlorhexidi 2018-02 Yes [id number] 15mL Swish and [facility] ne 0-07 spit out ity of (PERIDEX) 00:00: 15 mL 2 [place] 0.12 % 00 (two) Medical mouthwash times Branch daily. ibuprofen 2018-02 Yes [id number] 800mg Take 1 [facility] n[facility] 800 mg 0-07 tablet by ity of tablet 00:00: mouth [place] 00 every 8 Medical (eight) Branch hours as needed for Pain (scale 1-3). chlorhexidi 2018-02 Yes [id number] 15mL Swish and [facility] ne 0-07 spit out ity of (PERIDEX) 00:00: 15 mL 2 [place] 0.12 % 00 (two) Medical mouthwash times Branch daily. ibuprofen 2018-02 Yes [id number] 800mg Take 1 [facility] n[facility] 800 mg 0-07 tablet by ity of tablet 00:00: mouth [place] 00 every 8 Medical (eight) Branch hours as needed for Pain (scale 1-3). chlorhexidi 2018-02 Yes [id number] 15mL Swish and [facility] ne 0-07 spit out ity of (PERIDEX) 00:00: 15 mL 2 [place] 0.12 % 00 (two) Medical mouthwash times Branch daily. ibuprofen 2018-02 Yes [id number] 800mg Take 1 [facility] n[facility] 800 mg 0-07 tablet by ity of tablet 00:00: mouth [place] 00 every 8 Medical (eight) Branch hours as needed for Pain (scale 1-3). chlorhexidi 2018-02 Yes [id number] 15mL Swish and [facility] ne 0-07 spit out ity of (PERIDEX) 00:00: 15 mL 2 [place] 0.12 % 00 (two) Medical mouthwash times Branch daily. ibuprofen 2018-02 Yes [id number] 800mg Take 1 [facility] n[facility] 800 mg 0-07 tablet by ity of tablet 00:00: mouth [place] 00 every 8 Medical (eight) Branch hours as needed for Pain (scale 1-3). chlorhexidi 2018-02 Yes [id number] 15mL Swish and [facility] ne 0-07 spit out ity of (PERIDEX) 00:00: 15 mL 2 [place] 0.12 % 00 (two) Medical mouthwash times Branch daily. ibuprofen 2018-02 Yes [id number] 800mg Take 1 [facility] n[facility] 800 mg 0-07 tablet by ity of tablet 00:00: mouth [place] 00 every 8 Medical (eight) Branch hours as needed for Pain (scale 1-3). chlorhexidi 2018-02 Yes [id number] 15mL Swish and [facility] ne 0-07 spit out ity of (PERIDEX) 00:00: 15 mL 2 [place] 0.12 % 00 (two) Medical mouthwash times Branch daily. ibuprofen 2018-02 Yes [id number] 800mg Take 1 [facility] n[facility] 800 mg 0-07 tablet by ity of tablet 00:00: mouth [place] 00 every 8 Medical (eight) Branch hours as needed for Pain (scale 1-3). chlorhexidi 2018-02 Yes [id number] 15mL [facility] ne 0-07 spit out ity of (PERIDEX) 00:00: 15 mL 2 [place] 0.12 % 00 (two) Medical mouthwash times Branch daily. ibuprofen 2018-02 Yes [id number] 800mg Take 1 [facility] n[facility] 800 mg 0-07 tablet by ity of tablet 00:00: mouth [place] 00 every 8 Medical (eight) Branch hours as needed for Pain (scale 1-3). chlorhexidi 2018-02 Yes [id number] 15mL [facility] ne 0-07 spit out ity of (PERIDEX) 00:00: 15 mL 2 [place] 0.12 % 00 (two) Medical mouthwash times Branch daily. ibuprofen 2018-02 Yes [id number] 800mg Take 1 [facility] 800 mg 0-07 tablet by ity of tablet 00:00: mouth [place] 00 every 8 Medical (eight) Branch hours as needed for Pain (scale 1-3). chlorhexidi 2018-02 Yes [id number] 15mL [facility] ne 0-07 spit out ity of (PERIDEX) 00:00: 15 mL 2 [place] 0.12 % 00 (two) Medical mouthwash times Branch daily. ibuprofen 2018-02 Yes [id number] 800mg Take 1 [facility] 800 mg 0-07 tablet by ity of tablet 00:00: mouth [place] 00 every 8 Medical (eight) Branch hours as needed for Pain (scale 1-3). chlorhexidi 2018-02 Yes [id number] 15mL [facility] ne 0-07 spit out ity of (PERIDEX) 00:00: 15 mL 2 [place] 0.12 % 00 (two) Medical mouthwash times Branch daily. ibuprofen 2018-02 Yes [id number] 800mg Take 1 [facility] 800 mg 0-07 tablet by ity of tablet 00:00: mouth [place] 00 every 8 Medical (eight) Branch hours as needed for Pain (scale 1-3). chlorhexidi 2018-02 Yes [id number] 15mL [facility] ne 0-07 spit out ity of (PERIDEX) 00:00: 15 mL 2 [place] 0.12 % 00 (two) Medical mouthwash times Branch daily. ibuprofen 2018-02 Yes [id number] 800mg Take 1 [facility] 800 mg 0-07 tablet by ity of tablet 00:00: mouth [place] 00 every 8 Medical (eight) Branch hours as needed for Pain (scale 1-3). chlorhexidi 2018-02 Yes [id number] 15mL [facility] ne 0-07 spit out ity of (PERIDEX) 00:00: 15 mL 2 [place] 0.12 % 00 (two) Medical mouthwash times Branch daily. ibuprofen 2018-02 Yes [id number] 800mg Take 1 [facility] 800 mg 0-07 tablet by ity of tablet 00:00: mouth [place] 00 every 8 Medical (eight) Branch hours as needed for Pain (scale 1-3). chlorhexidi 2018-02 Yes [id number] 15mL [facility] ne 0-07 spit out ity of (PERIDEX) 00:00: 15 mL 2 [place] 0.12 % 00 (two) Medical mouthwash times Branch daily. ibuprofen 2018-02 Yes [id number] 800mg Take 1 [facility] 800 mg 0-07 tablet by ity of tablet 00:00: mouth [place] 00 every 8 Medical (eight) Branch hours as needed for Pain (scale 1-3). chlorhexidi 2018-02 Yes [id number] 15mL [facility] ne 0-07 spit out ity of (PERIDEX) 00:00: 15 mL 2 [place] 0.12 % 00 (two) Medical mouthwash times Branch daily. ibuprofen 2018-02 Yes [id number] 800mg Take 1 [facility] 800 mg 0-07 tablet by ity of tablet 00:00: mouth [place] 00 every 8 Medical (eight) Branch hours as needed for Pain (scale 1-3). chlorhexidi 2018-02 Yes [id number] 15mL [facility] ne 0-07 spit out ity of (PERIDEX) 00:00: 15 mL 2 [place] 0.12 % 00 (two) Medical mouthwash times Branch daily. ibuprofen 2018-02 Yes [id number] 800mg Take 1 [facility] 800 mg 0-07 tablet by ity of tablet 00:00: mouth [place] 00 every 8 Medical (eight) Branch hours as needed for Pain (scale 1-3). chlorhexidi 2018-02 Yes [id number] 15mL [facility] ne 0-07 spit out ity of (PERIDEX) 00:00: 15 mL 2 [place] 0.12 % 00 (two) Medical mouthwash times Branch daily. ibuprofen 2018-02 Yes [id number] 800mg Take 1 [facility] 800 mg 0-07 tablet by ity of tablet 00:00: mouth [place] 00 every 8 Medical (eight) Branch hours as needed for Pain (scale 1-3). chlorhexidi 2018-02 Yes [id number] 15mL [facility] ne 0-07 spit out ity of (PERIDEX) 00:00: 15 mL 2 [place] 0.12 % 00 (two) Medical mouthwash times Branch daily. ibuprofen 2018-02 Yes [id number] 800mg Take 1 [facility] 800 mg 0-07 tablet by ity of tablet 00:00: mouth [place] 00 every 8 Medical (eight) Branch hours as needed for Pain (scale 1-3). chlorhexidi 2018-02 Yes [id number] 15mL [facility] ne 0-07 spit out ity of (PERIDEX) 00:00: 15 mL 2 [place] 0.12 % 00 (two) Medical mouthwash times Branch daily. benzonatate Yes [id number] 100mg Take 1 [facility] 100 mg 4-29 capsule by ity of capsule 00:00: mouth 3 [place] 00 (three) Medical times Branch daily as needed for Cough. benzonatate Yes [id number] 100mg Take 1 [facility] 100 mg 4-29 capsule by ity of capsule 00:00: mouth 3 [place] 00 (three) Medical times Branch daily as needed for Cough. albuterol Yes [id number] 2{puff} Inhale 2 [facility] 90 4-29 Puffs ity of mcg/actuati 00:00: every 4 [place] on inhaler 00 (four) Medical hours as Branch needed for Wheezing or Shortness of Breath. benzonatate Yes [id number] 100mg Take 1 [facility] 100 mg 4-29 capsule by ity of capsule 00:00: mouth 3 [place] 00 (three) Medical times Branch daily as needed for Cough. benzonatate Yes [id number] 100mg Take 1 [facility] 100 mg 4-29 capsule by ity of capsule 00:00: mouth 3 (three) Medical times Branch daily as needed for Cough. benzonatate 0 Yes [id number] 100mg Take 1 [facility] 100 mg 4-29 capsule by ity of capsule 00:00: mouth 3 (three) Medical times Branch daily as needed for Cough. benzonatate Yes [id number] 100mg Take 1 [facility] 100 mg 4-29 capsule by ity of capsule 00:00: mouth 3 (three) Medical times Branch daily as needed for Cough. benzonatate Yes [id number] 100mg Take 1 [facility] 100 mg 4-29 capsule by ity of capsule 00:00: mouth 3 (three) Medical times Branch daily as needed for Cough. benzonatate Yes [id number] 100mg Take 1 [facility] 100 mg 4-29 capsule by ity of capsule 00:00: mouth 3 (three) Medical times Branch daily as needed for Cough. benzonatate Yes [id number] 100mg Take 1 [facility] 100 mg 4-29 capsule by ity of capsule 00:00: mouth (three) Medical times Branch daily as needed for Cough. benzonatate 0 Yes [id number] 100mg Take 1 [facility] 100 mg 4-29 capsule by ity of capsule 00:00: mouth 3 (three) Medical times Branch daily as needed for Cough. benzonatate Yes [id number] 100mg Take 1 [facility] 100 mg 4-29 capsule by ity of capsule 00:00: mouth 3 (three) Medical times Branch daily as needed for Cough. benzonatate Yes [id number] 100mg Take 1 [facility] 100 mg 4-29 capsule by ity of capsule 00:00: mouth 3 (three) Medical times Branch daily as needed for Cough. benzonatate 0 Yes [id number] 100mg Take 1 [facility] 100 mg 4-29 capsule by ity of capsule 00:00: mouth 3 (three) Medical times Branch daily as needed for Cough. benzonatate Yes [id number] 100mg Take 1 [facility] 100 mg 4-29 capsule by ity of capsule 00:00: mouth 3 (three) Medical times Branch daily as needed for Cough. benzonatate Yes [id number] 100mg Take 1 [facility] 100 mg 4-29 capsule by ity of capsule 00:00: mouth 3 (three) Medical times Branch daily as needed for Cough. benzonatate Yes [id number] 100mg Take 1 [facility] 100 mg 4-29 capsule by ity of capsule 00:00: mouth 3 (three) Medical times Branch daily as needed for Cough. benzonatate Yes [id number] 100mg Take 1 [facility] 100 mg 4-29 capsule by ity of capsule 00:00: mouth 3 (three) Medical times Branch daily as needed for Cough. benzonatate Yes [id number] 100mg Take 1 [facility] 100 mg 4-29 capsule by ity of capsule 00:00: mouth 3 (three) Medical times Branch daily as needed for Cough. benzonatate Yes [id number] 100mg Take 1 [facility] 100 mg 4-29 capsule by ity of capsule 00:00: mouth (three) Medical times Branch daily as needed for Cough. benzonatate Yes [id number] 100mg Take 1 [facility] 100 mg 4-29 capsule by ity of capsule 00:00: mouth 3 (three) Medical times Branch daily as needed for Cough. benzonatate Yes [id number] 100mg Take 1 [facility] 100 mg 4-29 capsule by ity of capsule 00:00: mouth 3 (three) Medical times Branch daily as needed for Cough. benzonatate Yes [id number] 100mg Take 1 [facility] 100 mg 4-29 capsule by ity of capsule 00:00: mouth 3 (three) Medical times Branch daily as needed for Cough. benzonatate Yes [id number] 100mg Take 1 [facility] 100 mg 4-29 capsule by ity of capsule 00:00: mouth 3 (three) Medical times Branch daily as needed for Cough. albuterol 2020- No [id number] 2{puff} Inhale 2 [facility] 90 4- 06-09 Puffs ity of mcg/actuati 00:00: 00:00 every 4 [place] on inhaler 00 :00 (four) Medical hours as Branch needed for Wheezing or Shortness of Breath. sulfamethox 0 Yes [id number] 1{tbl} Take 1 [facility] azole-trime 2-04 tablet by ity of thoprim 00:00: mouth [place] 800-160 mg 00 every 12 Medic al per tablet (twelve) Branc h hours. sulfamethox 2019-0 Yes [id number] 1{tbl} Take 1 [facility] azole-trime 2-04 tablet by ity of thoprim 00:00: mouth [place] 800-160 mg 00 every 12 Medic al per tablet (twelve) Branc h hours. sulfamethox 2019-0 Yes [id number] 1{tbl} Take 1 [facility] azole-trime 2-04 tablet by ity of thoprim 00:00: mouth [place] 800-160 mg 00 every 12 Medic al per tablet (twelve) Branc h hours. sulfamethox 2019-0 Yes [id number] 1{tbl} Take 1 [facility] azole-trime 2-04 tablet by ity of thoprim 00:00: mouth [place] 800-160 mg 00 every 12 Medic al per tablet (twelve) Branc h hours. sulfamethox 2019-0 Yes [id number] 1{tbl} Take 1 [facility] azole-trime 2-04 tablet by ity of thoprim 00:00: mouth [place] 800-160 mg 00 every 12 Medic al per tablet (twelve) Branc h hours. sulfamethox 2019-0 Yes [id number] 1{tbl} Take 1 [facility] azole-trime 2-04 tablet by ity of thoprim 00:00: mouth [place] 800-160 mg 00 every 12 Medic al per tablet (twelve) Branc h hours. sulfamethox 2019-0 Yes [id number] 1{tbl} Take 1 [facility] azole-trime 2-04 tablet by ity of thoprim 00:00: mouth [place] 800-160 mg 00 every 12 Medic al per tablet (twelve) Branc h hours. sulfamethox 2019-0 Yes [id number] 1{tbl} Take 1 [facility] azole-trime 2-04 tablet by ity of thoprim 00:00: mouth [place] 800-160 mg 00 every 12 Medic al per tablet (twelve) Branc h hours. sulfamethox 2019-0 Yes [id number] 1{tbl} Take 1 [facility] azole-trime 2-04 tablet by ity of thoprim 00:00: mouth [place] 800-160 mg 00 every 12 Medic al per tablet (twelve) Branc h hours. sulfamethox 2019-0 Yes [id number] 1{tbl} Take 1 [facility] azole-trime 2-04 tablet by ity of thoprim 00:00: mouth [place] 800-160 mg 00 every 12 Medic al per tablet (twelve) Branc h hours. sulfamethox 2019-0 Yes [id number] 1{tbl} Take 1 [facility] azole-trime 2-04 tablet by ity of thoprim 00:00: mouth [place] 800-160 mg 00 every 12 Medic al per tablet (twelve) Branc h hours. sulfamethox 2019-0 Yes [id number] 1{tbl} Take 1 [facility] azole-trime 2-04 tablet by ity of thoprim 00:00: mouth [place] 800-160 mg 00 every 12 Medic al per tablet (twelve) Branc h hours. sulfamethox 2019-0 Yes [id number] 1{tbl} Take 1 [facility] azole-trime 2-04 tablet by ity of thoprim 00:00: mouth [place] 800-160 mg 00 every 12 Medic al per tablet (twelve) Branc h hours. sulfamethox 2019-0 Yes [id number] 1{tbl} Take 1 [facility] azole-trime 2-04 tablet by ity of thoprim 00:00: mouth [place] 800-160 mg 00 every 12 Medic al per tablet (twelve) Branc h hours. sulfamethox 2019-0 Yes [id number] 1{tbl} Take 1 [facility] azole-trime 2-04 tablet by ity of thoprim 00:00: mouth [place] 800-160 mg 00 every 12 Medic al per tablet (twelve) Branc h hours. sulfamethox 2019-0 Yes [id number] 1{tbl} Take 1 [facility] azole-trime 2-04 tablet by ity of thoprim 00:00: mouth [place] 800-160 mg 00 every 12 Medic al per tablet (twelve) Branc h hours. sulfamethox 2019-0 Yes [id number] 1{tbl} Take 1 [facility] azole-trime 2-04 tablet by ity of thoprim 00:00: mouth [place] 800-160 mg 00 every 12 Medic al per tablet (twelve) Branc h hours. sulfamethox 2019-0 Yes [id number] 1{tbl} Take 1 [facility] azole-trime 2-04 tablet by ity of thoprim 00:00: mouth [place] 800-160 mg 00 every 12 Medic al per tablet (twelve) Branc h hours. sulfamethox 2019-0 Yes [id number] 1{tbl} Take 1 [facility] azole-trime 2-04 tablet by ity of thoprim 00:00: mouth [place] 800-160 mg 00 every 12 Medic al per tablet (twelve) Branc h hours. sulfamethox 2019-0 Yes [id number] 1{tbl} Take 1 [facility] azole-trime 2-04 tablet by ity of thoprim 00:00: mouth [place] 800-160 mg 00 every 12 Medic al per tablet (twelve) Branc h hours. sulfamethox 2019-0 Yes [id number] 1{tbl} Take 1 [facility] azole-trime 2-04 tablet by ity of thoprim 00:00: mouth [place] 800-160 mg 00 every 12 Medic al per tablet (twelve) Branc h hours. sulfamethox 2019-0 Yes [id number] 1{tbl} Take 1 [facility] azole-trime 2-04 tablet by ity of thoprim 00:00: mouth [place] 800-160 mg 00 every 12 Medic al per tablet (twelve) Branc h hours. sulfamethox 2019-0 Yes [id number] 1{tbl} Take 1 [facility] azole-trime 2-04 tablet by ity of thoprim 00:00: mouth [place] 800-160 mg 00 every 12 Medic al per tablet (twelve) Branc h hours. promethazin 2018-0 Yes Take by [facility] inoc[facility] e HCl 7-23 mouth. ity of (PROMETHAZI 18:03: [place] NE ORAL) 40 Medical Branch promethazin 2018-0 Yes Take by Un inocente e HCl 7-23 mouth. ity of (PROMETHAZI 18:03: [place] NE ORAL) 40 Medical Branch ALPRAZOLAM 2018-0 Yes Take by Uni vers ORAL 7-23 mouth. ity of 18:03: [address] ALPRAZOLAM 2018-0 Yes Take by [facility] vers ORAL 7-23 mouth. ity of 18:03: [address] fluticasone 2016-0 Yes 2{spray Use 2 Un inocente 50 6-09 } Sprays in ity of mcg/actuati 00:00: each [place] on nasal 00 nostril Medical spray daily. Branch fluticasone 2020- No 2{spray Use 2 U nivers 50 6-09 06-09 } Sprays in ity of mcg/actuati 00:00: 00:00 each [place] on nasal 00 :00 nostril Medical spray daily. Branch Cetirizine 2014-02 Yes 10mg Take 1 Cap U nivers (ZYRTEC) 10 1-13 by mouth ity of mg capsule 00:00: at [place] 00 bedtime. Medical Branch fluticasone 2014-02 Yes 1{spray Use 1 Un inocente (FLONASE) 1-13 } [facility] in ity of 50 00:00: each [place] mcg/actuati 00 nostril Medic al on nasal daily. Branch spray Cetirizine 2014-02 Yes 10mg Take 1 Cap U nivers (ZYRTEC) 10 1-13 by mouth ity of mg capsule 00:00: at [place] 00 bedtime. Medical Branch Cetirizine 2014-02 Yes 10mg Take 1 Cap U nivers (ZYRTEC) 10 1-13 by mouth ity of mg capsule 00:00: at [place] 00 bedtime. Medical Branch Cetirizine 2014-02 Yes 10mg Take 1 Cap U nivers (ZYRTEC) 10 1-13 by mouth ity of mg capsule 00:00: at [place] [address] bedtime. Medical Branch Cetirizine 2014-02 Yes 10mg Take 1 Cap U nivers (ZYRTEC) 10 1-13 by mouth ity of mg capsule 00:00: at [place] 00 bedtime. Medical Branch Cetirizine 2014-02 Yes 10mg Take 1 Cap U nivers (ZYRTEC) 10 1-13 by mouth ity of mg capsule 00:00: at [place] 00 bedtime. Medical Branch Cetirizine 2014-02 Yes 10mg Take 1 Cap U nivers (ZYRTEC) 10 1-13 by mouth ity of mg capsule 00:00: at [place] [address] bedtime. Medical Branch Cetirizine 2014-02 Yes 10mg Take 1 Cap U nivers (ZYRTEC) 10 1-13 by mouth ity of mg capsule 00:00: at [place] [address] bedtime. Medical Branch Cetirizine 2014- Yes 10mg Take 1 Cap U nivers (ZYRTEC) 10 1-13 by mouth ity of mg capsule 00:00: at [place] 00 bedtime. Medical Branch Cetirizine 2014-02 Yes 10mg Take 1 Cap U nivers (ZYRTEC) 10 1-13 by mouth ity of mg capsule 00:00: at [place] [address] bedtime. Medical Branch Cetirizine 2014-02 Yes 10mg Take 1 Cap U nivers (ZYRTEC) 10 1-13 by mouth ity of mg capsule 00:00: at [place] 00 bedtime. Medical Branch Cetirizine 2014-02 Yes 10mg Take 1 Cap U nivers (ZYRTEC) 10 1-13 by mouth ity of mg capsule 00:00: at [place] [address] bedtime. Medical Branch Cetirizine 2014-02 Yes 10mg Take 1 Cap U nivers (ZYRTEC) 10 1-13 by mouth ity of mg capsule 00:00: at [place] [address] bedtime. Medical Branch Cetirizine 2014-02 Yes 10mg Take 1 Cap U nivers (ZYRTEC) 10 1-13 by mouth ity of mg capsule 00:00: at [place] [address] bedtime. Medical Branch Cetirizine 2014-02 Yes 10mg Take 1 Cap U nivers (ZYRTEC) 10 1-13 by mouth ity of mg capsule 00:00: at [place] [address] bedtime. Medical Branch Cetirizine 2014-02 Yes 10mg Take 1 Cap U nivers (ZYRTEC) 10 1-13 by mouth ity of mg capsule 00:00: at [place] [address] bedtime. Medical Branch Cetirizine 2014-02 Yes 10mg Take 1 Cap U nivers (ZYRTEC) 10 1-13 by mouth ity of mg capsule 00:00: at [place] 00 bedtime. Medical Branch Cetirizine 2014-02 Yes 10mg Take 1 Cap U nivers (ZYRTEC) 10 1-13 by mouth ity of mg capsule 00:00: at [place] [address] bedtime. Medical Branch Cetirizine 2014-02 Yes 10mg Take 1 Cap U nivers (ZYRTEC) 10 1-13 by mouth ity of mg capsule 00:00: at [place] [address] bedtime. Medical Branch Cetirizine 2014-02 Yes 10mg Take 1 Cap U nivers (ZYRTEC) 10 1-13 by mouth ity of mg capsule 00:00: at [place] [address] bedtime. Medical Branch Cetirizine 2014-02 Yes 10mg Take 1 Cap U nivers (ZYRTEC) 10 1-13 by mouth ity of mg capsule 00:00: at [place] [address] bedtime. Medical Branch Cetirizine 2014-02 Yes 10mg Take 1 Cap U nivers (ZYRTEC) 10 1-13 by mouth ity of mg capsule 00:00: at [place] [address] bedtime. Medical Branch Cetirizine 2014-02 Yes 10mg Take 1 Cap U nivers (ZYRTEC) 10 1-13 by mouth ity of mg capsule 00:00: at [place] [address] bedtime. Medical Branch fluticasone 2014-02- No 1{spray Use 1 U nivers (FLONASE) 13 07-20 } [facility] in ity o f 50 00:00: 00:00 each [place] mcg/actuati 00 :00 nostril Medic al on nasal daily. Branch spray CLONIDINE 2011-02 Yes Take by [facility] ers HCL 2-10 mouth. ity of (CLONIDINE 20:37: [place] ORAL) Medical Branch CLONIDINE 2011-02 Yes Take by [facility] ers HCL 2-10 mouth. ity of (CLONIDINE 20:37: [place] ORAL) Medical Branch efavirenz 2011-02 Yes 600mg Take 1 Tab U nivers (SUSTIVA) 2-10 by mouth ity of 600 mg 00:00: daily. [place] tablet Medical Branch efavirenz 2011-02 Yes 600mg Take 1 Tab U nivers (SUSTIVA) 2-10 by mouth ity of 600 mg 00:00: daily. [place] tablet Medical Branch amLODIPine 2011-02 Yes 10mg Take 1 Tab U nivers (NORVASC) 2-10 by mouth ity of 10 mg 00:00: daily. [place] tablet Medical Branch efavirenz 2011-02 Yes 600mg Take 1 Tab U nivers (SUSTIVA) 2-10 by mouth ity of 600 mg 00:00: daily. [place] tablet Medical Branch amLODIPine 2011-02 Yes 10mg Take 1 Tab U nivers (NORVASC) 2-10 by mouth ity of 10 mg 00:00: daily. [place] tablet 00 [facility] Branch efavirenz 2011-02 Yes 600mg Take 1 Tab U nivers (SUSTIVA) 2-10 by mouth ity of 600 mg 00:00: daily. [place] tablet 00 [facility] Branch amLODIPine 2011-02 Yes 10mg Take 1 Tab U nivers (NORVASC) 2-10 by mouth ity of 10 mg 00:00: daily. [place] tablet 00 [facility] Branch efavirenz 2011-02 Yes 600mg Take 1 Tab U nivers (SUSTIVA) 2-10 by mouth ity of 600 mg 00:00: daily. [place] tablet 00 [facility] amLODIPine 2011-02 Yes 10mg Take 1 Tab U nivers (NORVASC) 2-10 by mouth ity of 10 mg 00:00: daily. [place] tablet 00 [facility] efavirenz 2011-02 Yes 600mg Take 1 Tab U nivers (SUSTIVA) 2-10 by mouth ity of 600 mg 00:00: daily. [place] tablet 00 [facility] amLODIPine 2011-02 Yes 10mg Take 1 Tab U nivers (NORVASC) 2-10 by mouth ity of 10 mg 00:00: daily. [place] tablet 00 [facility] efavirenz 2011-02 Yes 600mg Take 1 Tab U nivers (SUSTIVA) 2-10 by mouth ity of 600 mg 00:00: daily. [place] tablet 00 [facility] amLODIPine 2011-02 Yes 10mg Take 1 Tab U nivers (NORVASC) 2-10 by mouth ity of 10 mg 00:00: daily. [place] tablet 00 [facility] efavirenz 2011-02 Yes 600mg Take 1 Tab U nivers (SUSTIVA) 2-10 by mouth ity of 600 mg 00:00: daily. [place] tablet 00 [facility] amLODIPine 2011-02 Yes 10mg Take 1 Tab U nivers (NORVASC) 2-10 by mouth ity of 10 mg 00:00: daily. [place] tablet 00 [facility] Branch efavirenz 2011-02 Yes 600mg Take 1 Tab U nivers (SUSTIVA) 2-10 by mouth ity of 600 mg 00:00: daily. [place] tablet 00 [facility] amLODIPine 2011-02 Yes 10mg Take 1 Tab U nivers (NORVASC) 2-10 by mouth ity of 10 mg 00:00: daily. [place] tablet 00 [facility] efavirenz 2011-02 Yes 600mg Take 1 Tab U nivers (SUSTIVA) 2-10 by mouth ity of 600 mg 00:00: daily. [place] tablet 00 [facility] amLODIPine 2011-02 Yes 10mg Take 1 Tab U nivers (NORVASC) 2-10 by mouth ity of 10 mg 00:00: daily. [place] tablet 00 [facility] efavirenz 2011-02 Yes 600mg Take 1 Tab U nivers (SUSTIVA) 2-10 by mouth ity of 600 mg 00:00: daily. [place] tablet 00 [facility] amLODIPine 2011-02 Yes 10mg Take 1 Tab U nivers (NORVASC) 2-10 by mouth ity of 10 mg 00:00: daily. [place] tablet 00 [facility] efavirenz 2011-02 Yes 600mg Take 1 Tab U nivers (SUSTIVA) 2-10 by mouth ity of 600 mg 00:00: daily. [place] tablet 00 [facility] amLODIPine 2011-02 Yes 10mg Take 1 Tab U nivers (NORVASC) 2-10 by mouth ity of 10 mg 00:00: daily. [place] tablet 00 [facility] efavirenz 2011-02 Yes 600mg Take 1 Tab U nivers (SUSTIVA) 2-10 by mouth ity of 600 mg 00:00: daily. [place] tablet 00 [facility] amLODIPine 2011-02 Yes 10mg Take 1 Tab U nivers (NORVASC) 2-10 by mouth ity of 10 mg 00:00: daily. [place] tablet 00 [facility] efavirenz 2011-02 Yes 600mg Take 1 Tab U nivers (SUSTIVA) 2-10 by mouth ity of 600 mg 00:00: daily. [place] tablet 00 [facility] efavirenz 2011-02 Yes 600mg Take 1 Tab U nivers (SUSTIVA) 2-10 by mouth ity of 600 mg 00:00: daily. [place] tablet 00 [facility] efavirenz 2011-02 Yes 600mg Take 1 Tab U nivers (SUSTIVA) 2-10 by mouth ity of 600 mg 00:00: daily. [place] tablet 00 [facility] efavirenz 2011-02 Yes 600mg Take 1 Tab U nivers (SUSTIVA) 2-10 by mouth ity of 600 mg 00:00: daily. [place] tablet 00 [facility] efavirenz 2011-02 Yes 600mg Take 1 Tab U nivers (SUSTIVA) 2-10 by mouth ity of 600 mg 00:00: daily. [place] tablet 00 [facility] efavirenz 2011-02 Yes 600mg Take 1 Tab U nivers (SUSTIVA) 2-10 by mouth ity of 600 mg 00:00: daily. [place] tablet 00 [facility] efavirenz 2011-02 Yes 600mg Take 1 Tab U nivers (SUSTIVA) 2-10 by mouth ity of 600 mg 00:00: daily. [place] tablet 00 [facility] efavirenz 2011-02 Yes 600mg Take 1 Tab U nivers (SUSTIVA) 2-10 by mouth ity of 600 mg 00:00: daily. [place] tablet 00 [facility] efavirenz 2011-02 Yes 600mg Take 1 Tab U nivers (SUSTIVA) 2-10 by mouth ity of 600 mg 00:00: daily. [place] tablet 00 [facility] efavirenz 2011-02 Yes 600mg Take 1 Tab U nivers (SUSTIVA) 2-10 by mouth ity of 600 mg 00:00: daily. [place] tablet 00 [facility] amLODIPine 2011-02- No 10mg Take 1 Tab Univers (NORVASC) 2-10 - by mouth ity o f 10 mg 00:00: 00:00 daily. [place] tablet 00 :00 [facility] amLODIPine 2011-02- No 10mg Take 1 Tab Univers (NORVASC) 2-10 - by mouth ity o f 10 mg 00:00: 00:00 daily. [place] tablet 00 :00 [facility] amLODIPine 2011-02- No 10mg Take 1 Tab Univers (NORVASC) 2-10 - by mouth ity o f 10 mg 00:00: 00:00 daily. [place] tablet 00 :00 [facility] Immunizations Ordered Filled Immunization Date Status Comments [facility] e Immunization Name Name TDAP 2014-08-19 Completed [facility]00 [facility] TDAP 2014-08-19 Completed [facility] 00[facility]:00 [facility] TDAP 2014-08-19 Completed [facility] 00[facility]00:00 [facility] TDAP 2014-08-19 Completed [facility] 00[facility]00:00 [facility] TDAP 2014-08-19 Completed [facility] 00:00:00 [facility] TDAP 2014-08-19 Completed [facility] 00:00:00 [facility] TDAP 2014-08-19 Completed [facility] of 00:00:00 [facility] TDAP 2014-08-19 Completed [facility] of 00:00:00 [place] [facility] TDAP 2014-08-19 Completed [facility] 00:00:00 [place] [facility] TDAP 2014-08-19 Completed [facility] 00:00:00 [place] [facility] TDAP 2014-08-19 Completed [facility] 00:00:00 [place] [facility] TDAP 2014-08-19 Completed [facility] 00:00:00 [place] [facility] TDAP 2014-08-19 Completed [facility] 00:00:00 [place] [facility] TDAP 2014-08-19 Completed [facility] 00:00:00 [place] [facility] TDAP 2014-08-19 Completed [facility] of 00:00:00 [place] [facility] TDAP 2014-08-19 Completed [facility] of 00:00:00 [place] [facility] TDAP 2014-08-19 Completed [facility] of 00:00:00 [place] [facility] TDAP 2014-08-19 Completed University of 00:00:00 [facility] TDAP 2014-08-19 Completed [facility] 00:00:00 [facility] TDAP 2014-08-19 Completed [facility] 00:00:00 [facility] TDAP 2014-08-19 Completed [facility] 00:00:00 [facility] TDAP 2014-08-19 Completed University of 00:00:00 [facility] TDAP 2014-08-19 Completed [facility] 00:00:00 [facility] Influenza Virus 2012-01-21 Completed Universit y of Vaccine 00:00:00 [facility] Influenza Virus 2012-01-21 Completed Universit y of Vaccine 00:00:00 [facility] Influenza Virus 2012-01-21 Completed Universit y of Vaccine 00:00:00 [facility] Influenza Virus 2012-01-21 Completed Universit y of Vaccine 00:00:00 [facility] Influenza Virus 2012-01-21 Completed Universit y of Vaccine 00:00:00 [facility] Influenza Virus 2012-01-21 Completed Universit y of Vaccine 00:00:00 [facility] Influenza Virus 2012-01-21 Completed Universit y of Vaccine 00:00:00 [facility] Influenza Virus 2012-01-21 Completed Universit y of Vaccine 00:00:00 [facility] Influenza Virus 2012-01-21 Completed Universit y of Vaccine 00:00:00 [facility] Influenza Virus 2012-01-21 Completed Universit y of Vaccine 00:00:00 [facility] Influenza Virus 2012-01-21 Completed Universit y of Vaccine 00:00:00 [facility] Influenza Virus 2012-01-21 Completed Universit y of Vaccine 00:00:00 [facility] Influenza Virus 2012-01-21 Completed Universit y of Vaccine 00:00:00 [facility] Influenza Virus 2012-01-21 Completed Universit y of Vaccine 00:00:00 [facility] Influenza Virus 2012-01-21 Completed Universit y of Vaccine 00:00:00 [facility] Influenza Virus 2012-01-21 Completed Universit y of Vaccine 00:00:00 [facility] Influenza Virus 2012-01-21 Completed Universit y of Vaccine 00:00:00 [facility] Influenza Virus 2012-01-21 Completed Universit y of Vaccine 00:00:00 [facility] Influenza Virus 2012-01-21 Completed Universit y of Vaccine 00:00:00 [facility] Influenza Virus 2012-01-21 Completed Universit y of Vaccine 00:00:00 [facility] Influenza Virus 2012-01-21 Completed Universit y of Vaccine 00:00:00 [facility] Influenza Virus 2012-01-21 Completed Universit y of Vaccine 00:00:00 [facility] Influenza Virus 2012-01-21 Completed Universit y of Vaccine 00:00:00 [facility] Vital Signs Vital Name Observation Time Observation Value Comments Source Systolic blood 2020-10-04 16:43:00 138 mm[Hg] Univer sity of pressure [facility] Diastolic blood 2020-10-04 16:43:00 89 mm[Hg] Unive rsity of pressure [facility] Heart rate 2020-10-04 16:43:00 93 /min Universi [facility] Body temperature 2020-10-04 16:43:00 36.67 Roma [facility] Respiratory rate 2020-10-04 16:43:00 18 /min [facility] Body weight 2020-10-04 16:43:00 60.328 kg Universi ty [facility] BMI 2020-10-04 16:43:00 23.56 kg[facility]m2 [facility] Oxygen saturation in 2020-10-04 16:43:00 97 /min [facility] Arterial blood by [facility] Pulse oximetry Branch Systolic blood 2020-08-25 14:27:00 153 mm[Hg] Univer sity of pressure [facility] Diastolic blood 2020-08-25 14:27:00 99 mm[Hg] Unive rsity of pressure [facility] Heart rate 2020-08-25 14:27:00 66 /min Universi ty [facility] Body temperature 2020-08-25 14:27:00 37.06 Roma Univ ersity of [facility] Respiratory rate 2020-08-25 14:27:00 18 /min Univ ersity of [facility] Body weight 2020-08-25 14:27:00 60.328 kg Universi ty [facility] BMI 2020-08-25 14:27:00 23.56 kg/m2 Universi ty [facility] Oxygen saturation in 2020-08-25 14:27:00 98 /min University of Arterial blood by [facility] donald Pulse oximetry Branch Systolic blood 2020-08-24 19:40:00 163 mm[Hg] Univer sity of pressure [facility] Diastolic blood 2020-08-24 19:40:00 94 mm[Hg] Unive rsity of pressure [facility] Heart rate 2020-08-24 19:40:00 68 /min Universi ty of [facility] Body temperature 2020-08-24 19:40:00 36.83 Roma Univ ersity of [facility] Respiratory rate 2020-08-24 19:40:00 18 /min Univ ersity of [facility] Body weight 2020-08-24 19:40:00 60.328 kg Universi ty [facility] BMI 2020-08-24 19:40:00 23.56 kg/m2 Universi ty [facility] Oxygen saturation in 2020-08-24 19:40:00 100 /min University of Arterial blood by [facility] donald Pulse oximetry Branch Systolic blood 2020-07-26 19:46:00 147 mm[Hg] Univer sity of pressure [facility] Diastolic blood 2020-07-26 19:46:00 89 mm[Hg] Unive rsity of pressure [facility] Heart rate 2020-07-26 19:42:00 82 /min Universi ty [facility] Body height 2020-07-26 19:42:00 160 cm Universi ty [facility] Body weight 2020-07-26 19:42:00 60.601 kg Universi ty [facility] BMI 2020-07-26 19:42:00 23.67 kg/m2 Universi ty [facility] Oxygen saturation in 2020-07-26 19:42:00 91 /min University of Arterial blood by [facility] Pulse oximetry Branch Systolic blood 2020-07-20 20:13:00 152 mm[Hg] Univer sity of pressure [facility] Diastolic blood 2020-07-20 20:13:00 99 mm[Hg] Unive rsity of pressure [facility] Heart rate 2020-07-20 20:13:00 67 /min Universi ty of [facility] Respiratory rate 2020-07-20 20:13:00 14 /min Univ ersity of [facility] Oxygen saturation in 2020-07-20 20:13:00 100 /min University of Arterial blood by [facility] Pulse oximetry Branch Body temperature 2020-07-20 18:00:00 36.67 Roma Univ ersity of [facility] Body weight 2020-07-20 15:23:00 77.111 kg Universi ty [facility] BMI 2020-07-20 15:23:00 30.11 kg/m2 [facility] ty [facility] Systolic blood 2020-07-01 18:36:00 138 mm[Hg] Univer sity of pressure [facility] Diastolic blood 2020-07-01 18:36:00 82 mm[Hg] Unive rsity of pressure [facility] Heart rate 2020-07-01 18:36:00 68 /min Universi ty [facility] Body temperature 2020-07-01 18:36:00 36 Roma Univ ersity of [facility] Respiratory rate 2020-07-01 18:36:00 18 /min Univ ersity of [facility] Body weight 2020-07-01 18:36:00 77.111 kg Universi ty [facility] BMI 2020-07-01 18:36:00 30.11 kg/m2 [facility] Oxygen saturation in 2020-07-01 18:36:00 96 /min University of Arterial blood by [facility] Pulse oximetry Branch Systolic blood 2020-07-01 18:36:00 138 mm[Hg] Univer sity of pressure [facility] Diastolic blood 2020-07-01 18:36:00 82 mm[Hg] [facility] pressure [facility] Heart rate 2020-07-01 18:36:00 68 /min [facility] Body temperature 2020-07-01 18:36:00 36 Roma [facility] Respiratory rate 2020-07-01 18:36:00 18 /min [facility] Body weight 2020-07-01 18:36:00 77.111 kg [facility] BMI 2020-07-01 18:36:00 30.11 kg/m2 [facility] Oxygen saturation in 2020-07-01 18:36:00 96 /min [facility] Arterial blood by [facility] Pulse oximetry Branch Procedures Procedure Date / Time Performing Clinician Source Performed CONSENT/REFUSAL FOR 2020-10-04 16:23:52 Doctor Joellen [facility] DIAGNOSIS AND TREATMENT [place] [facility] CONSENT/REFUSAL FOR 2020-08-25 14:16:18 Doctor Ann Mariesammy [facility] DIAGNOSIS AND TREATMENT [place] [facility] CONSENT/REFUSAL FOR 2020-08-24 19:18:51 Doctor Ann Mariesammy [facility] DIAGNOSIS AND TREATMENT [place] [facility] MEDICATION CORRESPONDENCE 2020-07-28 05:01:00 Doctor Joellen, [facility] ID ELECTROCARDIOGRAM, 2020-07-26 19:51:40 Bonny Morris [facility] COMPLETE [facility] URINALYSIS 2020-07-20 19:32:00 Dawn Blanco [facility] COVID-19 (ID NOW RAPID 2020-07-20 18:02:00 Dawn Blanco [facility] TESTING) Medical Branch CT ABDOMEN PELVIS WO 2020-07-20 16:09:13 Dawn Blanco [facility] CONTRAST [facility] BASIC METABOLIC PANEL 2020-07-20 15:54:00 Dawn Blanco [facility] (NA, K, CL, CO2, GLUCOSE, Medica l Branch BUN, CREATININE, CA) CBC WITH DIFF 2020-07-20 15:54:00 Dawn Blanco [facility] RAPID STREP SCREEN FOR 2020-07-20 15:51:00 Dawn Blanco [facility] GROUP A [facility] CONSENT/REFUSAL FOR 2020-07-20 15:15:44 [facility] DIAGNOSIS AND TREATMENT [place] [facility] NOTICE OF PRIVACY 2020-07-01 18:27:55 Doctor Unasssammy [facility] PRACTICES [place] [facility] CONSENT/REFUSAL FOR 2020-07-01 18:27:21 Doctor [facility]sam[facility] DIAGNOSIS AND TREATMENT [place] [facility] Encounters Start End Encounter Admission Attending Care Care Encounter Source Date/Time Date/Time Type Type Clinicians Facility Department ID 2020-12-26 Outpatient Adams_R [facility] [id number] Devoted 17:26:45 [id number] [facility] 2020-12-26 Outpatient Adams_R [facility] [id number] [facility] 07:33:45 [id number] [facility] 2020-12-26 Outpatient Tumelson_A [facility] [id number] [facility] 00:25:53 [id number] [facility] 2020-12-12 Emergency [facility] [id number] Univers 17:42:[address] [facility] 2020-12-12 Emergency [facility] [id number] Univers 08:21:[address] [facility] 2020-12-12 Emergency [facility] [id number] Univers 08:11:[address] [facility] 2020-11-03 2020-11-03 [id number] Univers 00:00:00 00:00:[id number] ity [address] [facility] 2020-10-04 2020-10-04 Emergency [facility] [id number] Univers 11:44:00 12:54:00 Margaret Gonzalez [id number] ity of [place] [id number] [facility] [id number] [facility] 084 Branch 2020-09-29 2020-09-29 [place] [facility] [id number] Univers 00:00:00 00:00:00 Sendil Tabatha Gonzalez [id number] [id number] [phone] Mn dical nal 9 [facility] 2020-09-22 2020-09-22 Outpatient R ALEXANDRA [facility] [id number] Univers 14:30:00 14:30:00 SENDIL [id number] ity [facility] 2020-09-22 2020-09-22 [facility] [id number] Univers 14:30:00 14:30:00 SENDIL ity [facility] 2020-08-25 2020-08-25 Emergency [facility] [id number] Univers 09:28:00 10:21:00 Margaret Gonzalez [id number] [id number] [id number] [address] 2020-08-24 2020-08-24 Emergency Terri Elliott [facility] [id number] Univers 14:43:00 15:59:00 Suzette Gonzalez [id number] i [id number] [id number] [address] 2020-08-24 2020-08-24 Telephone Alexandra [facility] [id number] Univers 00:00:00 00:00:00 Sendil Tabatha Gonzalez [id number] [id number] [phone] Mn dical nal [address] [place] [address] 2020-08-12 2020-08-12 Outpatient R ALEXANDRA [facility] [id number] Univers 15:00:00 15:00:00 SENDIL [id number] ity [facility] 2020-08-12 2020-08-12 [facility] [id number] Univers 15:00:00 15:00:00 SENDIL ity [facility] 2020-08-12 2020-08-12 Telephone [facility] [id number] Univers 00:00:00 00:00:00 Bonny Gonzalez [id number] [id number] [id number] Mn dical nal 059 [facility] 2020-07-28 2020-07-28 Telephone [facility] [id number] Univers 00:00:00 00:00:00 Sendiva Gonzalez [id number] [id number] [phone] Mn dicid nal [address] [place] [address] 2020-07-28 2020-07-28 Orders Doctor KAVITA [id number] Univers 00:00:00 00:00:00 Only Unassigned, YEVGENIY [id number] ity of [place] [facility] 4.2.7.2.686 Ian as [id number] [address] 2020-07-27 2020-07-27 Telephone [facility] [id number] Univers 00:00:00 00:00:00 Bonny Gonzalez [id number] [place] [phone] Mn dicid nal 9 [facility] 2020-07-27 2020-07-27 Telephone [facility] [id number] Univers 00:00:00 00:00:00 Bonny Gonzalez [id number] [place] [phone] Mn dical nal 059 [facility] 2020-07-26 2020-07-26 Office [facility] [id number] Univers 14:25:36 15:12:16 Visit Bonny Gonzalez [id number] [place] [phone] Me dical nal 059 [facility] 2020-07-26 2020-07-26 Outpatient R MORRIS, [facility] [id number] Univers 14:30:00 14:30:[address] [facility] 2020-07-20 2020-07-20 Emergency [facility] [id number] Univers 10:25:00 15:52:00 Dawn Bradley Baudette [id number] i ty of [place] 4.2.7.2.[address] [facility] [id number] [address] 2020-07-20 2020-07-20 Emergency X [facility] ERT [id number] Univers 10:16:00 10:16:00 [facility] 2020-07-01 2020-07-01 Emergency [facility] [id number] Univers 13:47:00 16:34:00 [place] Endy Gonzalez [id number] [place] [facility] [id number] [facility] [id number] [address] 2020-07-01 2020-07-01 [facility] 1.2.840.114 [id number] 13:47:00 16:34:00 [place] Gonzalez [id number] [place] [id number] [place] [id number] [facility] 2020-07-01 2020-07-01 Emergency X [facility] ERT [id number] Univers 13:27:00 13:27:00 [facility] Results Test Description Test Time Test Comments Results Result Comments Source URINALYSIS 2020-07-20 20:09:09 Test Item Value Reference Range Interpretation Comme nts APPEARANCE (test code = Clear Clear 5976441358) COLOR (test code = 6765728480) Yellow Yellow PH (test code = 9922725651) 4.8-8.0 SP GRAVITY (test code = 1.003-1.030 6066083571) GLU U QUAL (test code = Normal Normal 2098703941) BLOOD (test code = 7110144982) 3+ Negative A KETONES (test code = 8898829212) Negative Negative PROTEIN (test code = 2887-8) Negative Negative UROBILIN (test code = 1876305310) Normal Normal BILIRUBIN (test code = Negative Negative 5797555151) NITRITE (test code = 1804372946) Negative Negative LEUK DEJA (test code = Negative Negative 6043523434) RBC/HPF (test code = 1291869637) See_Comment H [Automated message] The system which ge nerated this result transmit agustin reference range: 0 - 3 HP F. The reference range was not used to interpret th is result as normal/abnormal . WBC/HPF (test code = 9756070059) See_Comment [Automated message] The system which ge nerated this result transmit agustin reference range: 0 - 5 HP F. The reference range was not used to interpret th is result as normal/abnormal . BACTERIA (test code = 6543096809) Negative Negative SQ EPITH (test code = 2219187274) HPF Lab Interpretation (test code = Abnormal 71384-0) [facility] NOW [facility]APID TEST[facility])2020-07-20 18:57:18 Test Item Value Reference Range Interpretation Comments SARS-CoV-2 Rapid ID NOW Not Detected Not Detected (test code = 89947-2) GARRY (test code = GARRY) ID NOW COVID-19 Assay is an isothermal nucleic acid amplification test intended for the qualitative detection of nucleic acid from SARS-CoV-2 viral RNA in nasopharyngeal (SECTION LABORER) specimens. It is used under Emergency Use Authorization (EUA) by FDA. The limit of detection (LOD) of the assay is 125 Genome Equivalents/mL. A positive result is indicative of the presence of SARS-CoV-2 RNA. ?Clinical correlation with patient history and other diagnostic information is necessary to determine patient infection status. A negative (Not Detected) result does not preclude SARS-CoV-2 infection. In patients with clinical symptoms and other tests that are consistent with SARS-CoV-2 infection, negative results should be treated as presumptive negative and a new specimen should be tested with alternative PCR molecular test. Invalid: Please collect a new specimen for repeat patient testing if clinically indicated. Lab Interpretation Normal (test code = 50041-6) [facility] STREP SCREEN FOR GROUP [id number] 17:13:32 Test Item Value Reference Range Interpretation Comments Streptococcus pyogenes (group A) Negative Negative antigen (test code = 70052-2) Lab Interpretation (test code = Normal 06128-3) [facility] WITH [id number] 17:08:43 Test Item Value Reference Range Interpretation Comments WBC (test code = See_Comment LL [Automated 6690-2) message] The sy stem which generated this result transmitted reference range : 4.30 - 11.10 10*3/?L. The reference range was not used to interpret this result as normal/abnormal . RBC (test code = See_Comment L [Automated 789-8) message] The sy stem which generated this result transmitted reference range : 3.93 - 5.25 10*6/?L. The reference range was not used to interpret this result as normal/abnormal . HGB (test code = 11.8 g/dL 11.6-15.0 718-7) HCT (test code = 35.1 % 35.7-45.2 L 4544-3) MCV (test code = 101.4 fL 80.6-95.5 H 787-2) MCH (test code = 34.1 pg 25.9-32.8 H 785-6) MCHC (test code = 33.6 g/dL 31.6-35.1 786-4) RDW-SD (test code = 46.6 fL 39.0-49.9 35616-5) RDW-CV (test code = 12.5 % 12.0-15.5 788-0) PLT (test code = See_Comment [Automated 777-3) message] The sy stem which generated this result transmitted reference range : 166 - 358 10*3/ ?L. The reference r roman was not used to interpret this result as normal/abnormal . MPV (test code = 10.0 fL 9.5-12.9 24617-7) NRBC/100 WBC (test See_Comment [Automat ed code = 4506479800) message] The system which generated this result transmitted reference range : 0.0 - 10.0 /100 WBCs. The refer ence range was not u sed to interpret th is result as normal/abnormal . NRBC x10^3 (test code <0.01 See_Comment [Auto mated = 8864856016) message] The s ystem which generated this result transmitted reference range : 10*3/?L. The reference range was not used to interpret this result as normal/abnormal . GRAN MAT (NEUT) % 26.5 % (test code = 770-8) IMM GRAN % (test code 0.00 % = 7488916261) LYMPH % (test code = 57.1 % 736-9) MONO % (test code = 12.6 % 5905-5) EOS % (test code = 3.3 % 713-8) BASO % (test code = 0.5 % 706-2) GRAN MAT x10^3(ANC) 0.48 10*3/uL 1.88-7.09 L (test code = 5889705416) IMM GRAN x10^3 (test <0.03 0.00-0.06 code = 0042464742) LYMPH x10^3 (test code 1.04 10*3/uL 1.32-3.29 L = 731-0) MONO x10^3 (test code 0.23 10*3/uL 0.33-0.92 L = 742-7) EOS x10^3 (test code = 0.06 10*3/uL 0.03-0.39 711-2) BASO x10^3 (test code <0.03 0.01-0.07 = 704-7) LG GRAN LYMPHS (test Moderate Rare A code = 5406179864) Lab Interpretation Abnormal (test code = 41628-1) [facility] METABOLIC PANEL (NA, K, CL, CO2, GLUCOSE, BUN, CREATININE, CA)2020-07-20 16:35:34 Test Item Value Reference Range Interpretation Comments NA (test code = 141 mmol/L 135-145 5044022966) K (test code = 3.8 mmol/L 3.5-5.0 0636117344) CL (test code = 110 mmol/L 98-108 H 2399336615) CO2 TOTAL (test code = 25 mmol/L 23-31 0017503616) AGAP (test code = 2-16 4391488705) BUN (test code = 15 mg/dL 7-23 0298822436) GLUCOSE (test code = 85 mg/dL 70-110 2148470475) CREATININE (test code = 0.92 mg/dL 0.50-1.04 1247689917) CALCIUM (test code = 10.0 mg/dL 8.6-10.6 2780369375) eGFR (test code = mL/min/1.73m2 9665620953) GARRY (test code = GARRY) Association of Glomerular Filtration Rate (GFR) and Staging of Kidney Disease* + --+ --+ ------+| GFR (mL/min/1.73 m2) ?| With Kidney Damage ?| ?Without Kidney Damage+ --------+ --------+ +| ?>90 ?| ?Stage one ?| ? Normal ?+ ---+ ---+ -------+| ?60-89 ?| ?Stage two ?| ? Decreased GFR ? + --+ --+ ------+| ?30-59 ?| ?Stage three ?| ? Stage three ? + --+ --+ ------+| ?15-29 ?| ?Stage four ? | ? Stage four ?+ ---+ ---+ -------+| ?<15 (or dialysis) ? ?| ?Stage five ? | ? Stage five ?+ ---+ ---+ -------+ *Each stage assumes the associated GFR level has been in effect for at least three months. ?Stages 1 to 5, with or without kidney disease, indicate chronic kidney disease. Notes: Determination of stages one and two (with eGFR >59mL/min/1.73 m2) requires estimation of kidney damage for at least three months as defined by structural or functional abnormalities of the kidney, manifested by either:Pathological abnormalities or Markers of kidney damage (including abnormalities in the composition of the blood or urine or abnormalities in imaging tests). Lab Interpretation Abnormal (test code = 12862-6) [facility] [id number] 16:13:32CT Abdomen and Pelvis without contrast. CLINICAL HISTORY: ?FLANK PAIN. R/O RENAL STONES. TECHNIQUE: Multidetector helical CT acquisition was obtained from the lungbases to the greater trochanters without oral and IV contrast. ?The imageswere reviewed in lung, bone, and soft tissue windows. FINDINGS: ?Absence of intravenous contrast limits evaluation of the solidorgans. Evaluation of the bowel is alsolimited by lack of oral contrast. Lower lungs: Chronic changes of minimal bibasilar pulmonary fibrosis andminimal fibrosis in the lingula and right middle lobe. Probable shortsliding hiatal hernia. No pleural effusion or pericardial effusion. Liver, Gallbladder and Spleen: 3 to 4 mm size small gallstones are seen inthe dependent portion of the gallbladder lumen without any CT signs ofacute cholecystitis. Unremarkable liver and spleen. Peritoneum: ?No free air or free fluid. No lymphadenopathy. Pancreas and Adrenals: ?Unremarkable pancreas and adrenal glands. Kidneys and Ureters: ?No visible calculiin the renal collecting systems. No hydroureter or hydronephrosis. ? Vessels: Minimal atherosclerosis. Retroperitoneum: No abnormal fluid or lymphadenopathy. Bowel: Constipation. No signs of acute appendicitis. Small bowel gaspattern is unremarkable. Bladder ?and Reproductive Organs: S/P cholecystectomy. Grossly unremarkablebut collapsed urinary bladder. Bones: Old fracture of upper plate of T11 withloss of up to 50% of itsheight. Exaggerated lumbar lordosis, disc disease at L5-S1 and lower 2lumbarlevels facet arthritis. Soft tissues: Unremarkable. CONCLUSION:1. No acute intra-abdominal or pelvicabnormalities detected. Specificallyno kidney stones or hydronephrosis visualized.2. S/P hysterectomy.3. Small gallstones noted without any CT signs of acute cholecystitis.4. Constipation. [facility], Radiant Results Inft User - 07/20/2020 11:[address] Abdomen and Pelvis without contrast.CLINICAL HISTORY: FLANK PAIN. R/O RENAL STONES.TECHNIQUE: Multidetector helical CT acquisition was obtained from the lungbases to the greater trochanterswithout oral and IV contrast. The imageswere reviewed in lung, bone, and soft tissue windows.FINDINGS: Absence of intravenous contrast limits evaluation of the solidorgans. Evaluation of the bowel isalso limited by lack of oral contrast. Lower lungs: Chronic changes of minimal bibasilar pulmonary fibrosis andminimal fibrosis in the lingula and right middle lobe. Probable shortsliding hiatal hernia. No pleural effusion or pericardial effusion.Liver, Gallbladder and Spleen: 3 to 4 mm size small gall stones are seen inthe dependent portion of the gallbladder lumen without any CT signs ofacute cholecystitis. Unremarkable liver and spleen.Peritoneum: No free air or free fluid. No lymphadenopathy.Pancreas and Adrenals: Unremarkable pancreas and adrenal glands.Kidneys and Ureters: No visible calculi in the renal collecting systems. No hydroureter or hydronephrosis. Vessels: Minimal atherosclerosis.Retroperitoneum: No abnormal fluid or lymphadenopathy.Bowel: Constipation. No signs of acute appendicitis. Small bowel gaspattern is unremarkable.Bladder and Reproductive Organs: S/P cholecystectomy.Grossly unremarkablebut collapsed urinary bladder. Bones: Old fracture of upper plate of T11 with loss of up to 50% of itsheight. Exaggerated lumbar lordosis, disc disease at L5-S1 and lower 2lumbar levels facet arthritis.Soft tissues: Unremarkable.CONCLUSION:1. No acute intra-abdominal or pelvic abnormalities detected. Specificallyno kidney stones or hydronephrosis visualized.2. S/P hysterectomy.3. Small gallstones noted without any CT signs of acute cholecystitis.4. Constipation.[facility]"
[2021-01-11] MEDS ORDERED: ACETAMINOPHEN 325 MG TABLET ONE (11:45)
--- NOTE | 2021-01-11 11:58 | EDPHYS ---
Physician Documentation [facility] Name: Charito Michael Age: 55 yrs Sex: Female : 1965 Arrival Date: 01/11/2021 Time: 09:10 Bed 19 Private MD: ED Physician Chi Sanchez HPI: 01/11 09:53 This 55 yrs old Black Female presents to ER via Ambulatory with complaints of Sore jmm Throat, Cough. 09:53 The patient presents with sore throat. Onset: The symptoms/episode began/occurred jmm gradually, 1 day(s) ago. Modifying factors: The symptoms are alleviated by nothing, the symptoms are aggravated by nothing. Associated signs and symptoms: Pertinent positives: cough. This is a 55 year old female with a history of hiv, htn, copd that presents to the ED with complaints of arthritic pain to her joints and sore throat. Denies fever or vomiting. . Historical: - Allergies: 09:33 NKA; ss - PMHx: 09:33 Back pain; CHF; Chronic pain; COPD; HIV; Hypertension; seasonal allergies; ss - Immunization history:: Client reports receiving the 2nd dose of the Covid vaccine. - Social history:: Smoking status: Patient denies any tobacco usage or history of. ROS: 09:53 Constitutional: Positive for body aches, chills. jmm 09:53 Respiratory: Positive for cough. 09:53 Abdomen/GI: Negative for abdominal pain, nausea and vomiting. 09:53 All other systems are negative. Exam: 09:53 Constitutional: This is a well developed, well nourished patient who is awake, alert, jmm and in no acute distress. Head/Face: atraumatic. Eyes: EOMI, no conjunctival erythema appreciated 09:53 Neck: Trachea midline, Supple Chest/axilla: Normal chest wall appearance and motion. Cardiovascular: Regular rate and rhythm. No edema appreciated Respiratory: Normal respirations, no respiratory distress appreciated Abdomen/GI: Non distended, soft Back: Normal ROM Skin: General appearance color normal MS/ Extremity: Moves all extremities, no obvious deformities appreciated, no edema noted to the lower extremities Neuro: Awake and alert, normal gait Psych: Behavior is normal, Mood is normal, Patient is cooperative and pleasant 09:53 ENT: Posterior pharynx: erythema, that is moderate. Vital Signs: 09:31 BP 155 / 92; Pulse 71; Resp 16; Temp 98.0(O); Pulse Ox 98% on R/A; Weight 81.65 kg; ss Height 5 ft. 3 in. (160.02 cm); Pain 6/10; 09:31 Body Mass Index 31.89 (81.65 kg, 160.02 cm) ss MDM: 09:23 Patient medically screened. [facility] 11:56 Data reviewed: vital signs, nurses notes. [facility] 11:56 Counseling: I had a detailed discussion with the patient and/or guardian regarding: the [facility] historical points, exam findings, and any diagnostic results supporting the discharge/admit diagnosis, lab results, the need for outpatient follow up, to return to the emergency department if symptoms worsen or persist or if there are any questions or concerns that arise at home. 01/11 09:47 Order name: Strep; Complete Time: 11:41 [facility] 01/11 11:39 Order name: Throat Culture EDNM Administered Medications: 11:47 Drug: Tylenol 650 mg Route: PO; sl2 Disposition: 01/12 09:15 Co-signature as Attending Physician, Chi Sanchez MD I agree with the assessment and [facility] plan of care. Disposition Summary: 01/11/21 11:58 Discharge Ordered Location: Home [facility] Condition: Stable [facility] Diagnosis - Acute pharyngitis, unspecified [facility] Followup: [facility] - With: Private Physician - When: 2 - 3 days - Reason: Recheck today's complaints, Continuance of care, Re-evaluation by your physician Discharge Instructions: - Discharge Summary Sheet [facility] - Pharyngitis [facility] Forms: - Medication Reconciliation Form [facility] - Thank You Letter [facility] - Antibiotic Education [facility] - Prescription Opioid Use [facility] Prescriptions: - Augmentin 875-125 mg Oral Tablet - take 1 tablet by ORAL route every 12 hours for 10 days; 20 tablet; Refills: 0, [facility] Product Selection Permitted - orphenadrine citrate 100 mg Oral Tablet Sustained Release - take 1 tablet by ORAL route 2 times per day As needed; 20 tablet; Refills: 0, [facility] Product Selection Permitted Signatures: Dispatcher [employer] Chi La MD MD cha Mickail, Joel, PA PA jmm Smirch, Shelby, RN RN Landell, Lucinda, RN RN sl2
--- NOTE | 2021-01-11 11:58 | ER ---
Nurse's Notes [facility] Name: Charito Michael Age: 55 yrs Sex: Female : 1965 Arrival Date: 01/11/2021 Time: 09:10 Bed 19 Private MD: Diagnosis: Acute pharyngitis, unspecified Presentation: 01/11 09:31 Chief complaint: Patient states: achy knees, mid back pain and sore throat that began ss yesterday. No known injury. Coronavirus screen: Client denies travel out of the [place] in the last 14 days. Ebola Screen: Patient denies exposure to infectious person. Patient denies travel to an Ebola-affected area in the 21 days before illness onset. Initial Sepsis Screen: Does the patient meet any 2 criteria? No. Patient's initial sepsis screen is negative. Does the patient have a suspected source of infection? No. Patient's initial sepsis screen is negative. Risk Assessment: Do you want to hurt yourself or someone else? Patient reports no desire to harm self or others. Onset of symptoms was January 10, 2021. 09:31 Method Of Arrival: Ambulatory ss 09:31 Acuity: GIULIANO 4 ss Historical: - Allergies: 09:33 NKA; ss - PMHx: 09:33 Back pain; CHF; Chronic pain; COPD; HIV; Hypertension; seasonal allergies; ss - Immunization history:: Client reports receiving the 2nd dose of the Covid vaccine. - Social history:: Smoking status: Patient denies any tobacco usage or history of. Vital Signs: 09:31 BP 155 / 92; Pulse 71; Resp 16; Temp 98.0(O); Pulse Ox 98% on R/A; Weight 81.65 kg; ss Height 5 ft. 3 in. (160.02 cm); Pain 6/10; 09:31 Body Mass Index 31.89 (81.65 kg, 160.02 cm) ED Course: 09:10 Patient arrived in ED. as 09:12 Arie Hidalgo PA is PHCP. m 09:12 Chi Sanchez MD is Attending Physician. jmm 09:33 Triage completed. ss 09:33 Arm band placed on right wrist. ss 10:30 Lucinda Rodriguez RN is Primary Nurse. sl2 Administered Medications: 11:47 Drug: Tylenol 650 mg Route: PO; sl2 Outcome: 11:58 Discharge ordered by MD. eubanks 12:20 Patient left the ED. 5 Signatures: Arie Hidalgo PA PA jmm Martinez, Amelia as Smirch, Shelby RN RN Lucinda Rodriguez RN RN 2 Jocelyn Green RN RN 5
[2021-01-11 12:35] VITALS: BP 155/92; TEMP 98; O2SAT 98
== END 2021-01-11 12:20 | disposition home or self-care (01) ==
LOC: ER 09:07
DX: J02.9 Acute pharyngitis, unspecified (principal); I10 Essential (primary) hypertension; Z21 Asymptomatic human immunodeficiency virus [HIV] infection status
CPT/HCPCS: 87070; 87081; 99282

== ENCOUNTER 2021-02-06 10:02 | Emergency (ER) | payer OTHER ==
--- OUTSIDE RECORDS SUMMARY | 2021-02-06 10:13 | XMS REPORT | Continuity of Care Document ---
:1965 Author Organization [facility] t Address [address] [place] [address] Care Team Providers Name Role Phone Delfino Schumacher [facility] Primary Care Physic brady ALEXANDRA, K.H. Attending Clinician Unavailable Eliane Deleon DO Attending Clinician Alexandra CENTENO, K.H. Attending Clinician Dean_Robert Attending Clinician Unavailable Suzette Harris Attending Clinician Doctor Unassigned, Name Attending Clinician Unavailable Mirna Mendoza Attending Clinician Maggie_A Attending Clinician Unavailable Endy Steele Attending Clinician Dean_Robert Admitting Clinician Unavailable Maggie_A Admitting Clinician Unavailable Payers Payer Name Policy Type Policy Number Effective Date Expiration Date S ource MANAGED MEDICARE [id number] 2020 HMO GENERIC 00:00:00 [facility] [id number] 2016 MEDICAID 00:00:00 [place]ICAID [place] [id number] 2020 00:00:00 [facility] Avnera [id number] 2020 (MEDICARE 00:00:00 REPLACEMENT HMO) [facility] [id number] 2017 DUAL COMPLETE HMO 00:00:00 Problems Condition Condition Condition Status Onset Resolution Last Treating Co mments Source Name Details Category Date Date Treatment Clinician Date Medically Medically Disease Active Uni vers noncomplia noncomplia 09-02 it y of nt nt 00:00: [facility] Thrush Thrush Disease Active Univers 7-23 ity of 00:00: [facility] Obesity Obesity Disease Active Univers (BMI (BMI 4-20 ity of 30-39.9) 30-39.9) 00:00: [facility] Genital Genital Disease Active Univers warts warts 08-25 ity of 00:00: [facility] H/O: H/O: Disease Active Univers hysterecto hysterecto - it y of my my 00:00: [facility] 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 - it y of ciency ciency 00:00: [place] virus virus Medical infection) infection) Br anch Allergies, Adverse Reactions, Alerts Allergy Allergy Status Severity Reaction(s) Onset Inactive Treating Comm ents Source Name Type Date Date Clinician NO KNOWN Drug Active [facility] ALLERGIE Class ity of S [facility] Social History Social Habit Start Date Stop Date Quantity Comments Source Exposure to Not sure [facility] SARS-CoV-2 [facility] (event) [place] Tobacco use and 2020-10-04 2020-10-04 Never used Universit y of exposure 00:00:00 00:00:00 [facility] Alcohol intake 2020-10-04 2020-10-04 Current University 00:00:00 00:00:00 non-drinker of [facility] alcohol [place] (finding) Sex Ass[birth year] At [birth year] Universit y of 00:00:00 00:00:00 [facility] Smoking Status Start Date Stop Date Source Never smoker [facility] Medications Ordered Filled Start Stop Current Ordering [...] [place] :00 dose, [facility] donald injection 10/04/[address] [facility] ch 10 mg 1330, STAT ibuprofen 2020- No 600mg 600 mg, Uni vers (IBU) 10-04 08-24 Oral, ity of tablet 600 18:30: 17:35 ONCE, 1 [place] mg 00 :00 dose, [facility] 10/04/20 at Branch 1330, [place] ibuprofen 2020- No 600mg 600 mg, Uni vers (IBU) 10-04- Oral, ity of tablet 600 18:30: 17:35 ONCE, 1 [place] mg 00 :00 dose, [facility] 10/04/20 at Branch 1330, [place] losartan Yes [id number] 100mg Take 1 U nivers 100 mg 8-20 tablet by ity of tablet 00:00: mouth [place] 00 daily. Medical Branch losartan Yes [id number] 100mg Take 1 U nivers 100 mg 8-20 tablet by ity of tablet 00:00: mouth [place] 00 daily. Medical Branch losartan Yes [id number] 100mg Take 1 U nivers 100 mg 8-20 tablet by ity of tablet 00:00: mouth [place] 00 daily. Medical Branch nystatin 2020- No [id number] Take 6 mL Univers 100,000 7-15 07-30 by mouth 4 ity o f unit/mL 00:00: 04:59 (four) [place] suspension 00 :00 times Medical daily for Branch 14 days. amLODIPine Yes [id number] 10mg Take 1 Univers 10 mg 7-02 tablet by ity of tablet 00:00: mouth [place] 00 daily. Medical Branch atorvastati Yes [id number] 40mg Take 1 Univers n 40 mg 7-02 tablet by ity of tablet 00:00: mouth at [place] 00 bedtime. Medical Branch amLODIPine Yes [id number] 10mg Take 1 Univers 10 mg 7-02 tablet by ity of tablet 00:00: mouth [place] 00 daily. Medical Branch atorvastati Yes [id number] 40mg Take 1 Univers n 40 mg 7-02 tablet by ity of tablet 00:00: mouth at [place] 00 bedtime. Medical Branch losartan Yes [id number] 100mg Take 1 U nivers 100 mg 7-02 tablet by ity of tablet 00:00: mouth [place] 00 daily. Medical Branch amLODIPine Yes [id number] 10mg Take 1 Univers 10 mg 7-02 tablet by ity of tablet 00:00: mouth [place] 00 daily. Medical Branch atorvastati Yes [id number] 40mg Take 1 Univers n 40 mg 7-02 tablet by ity of tablet 00:00: mouth at [place] 00 bedtime. Medical Branch losartan Yes [id number] 100mg Take 1 U nivers 100 mg 7-02 tablet by ity of tablet 00:00: mouth [place] 00 daily. Medical Branch amLODIPine Yes [id number] 10mg Take 1 Univers 10 mg 7-02 tablet by ity of tablet 00:00: mouth [place] 00 daily. Medical Branch atorvastati Yes [id number] 40mg Take 1 Univers n 40 mg 7-02 tablet by ity of tablet 00:00: mouth at [place] 00 bedtime. Medical Branch losartan Yes [id number] 100mg Take 1 U nivers 100 mg 7-02 tablet by ity of tablet 00:00: mouth [place] 00 daily. Medical Branch amLODIPine Yes [id number] 10mg Take 1 Univers 10 mg 7-02 tablet by ity of tablet 00:00: mouth [place] 00 daily. Medical Branch atorvastati Yes [id number] 40mg Take 1 Univers n 40 mg 7-02 tablet by ity of tablet 00:00: mouth at [place] 00 bedtime. Medical Branch losartan Yes [id number] 100mg Take 1 U nivers 100 mg 7-02 tablet by ity of tablet 00:00: mouth [place] 00 daily. Medical Branch amLODIPine Yes [id number] 10mg Take 1 Univers 10 mg 7-02 tablet by ity of tablet 00:00: mouth [place] 00 daily. Medical Branch atorvastati Yes [id number] 40mg Take 1 Univers n 40 mg 7-02 tablet by ity of tablet 00:00: mouth at [place] 00 bedtime. Medical Branch amLODIPine Yes [id number] 10mg Take 1 Univers 10 mg 7-02 tablet by ity of tablet 00:00: mouth [place] 00 daily. Medical Branch atorvastati Yes [id number] 40mg Take 1 Univers n 40 mg 7-02 tablet by ity of tablet 00:00: mouth at [place] 00 bedtime. Medical Branch losartan 2020- No [id number] 100mg Take 1 Univers 100 mg 7- 08-20 tablet by ity of tablet 00:00: 00:00 mouth [place] 00 :00 daily. Medical Branch losartan 2020- No [id number] 100mg Take 1 Univers 100 mg 6-03 11- tablet by ity of tablet 00:00: 04:59 mouth [place] 00 :00 daily for Medical 90 days. Branch amLODIPine 2020- No [id number] 10mg Take 1 Univers 10 mg -11-02 tablet by ity of tablet 00:00: 04:59 mouth [place] 00 :00 daily for Medical 90 days. Branch atorvastati 2020- No [id number] 40mg Take 1 Univers n 40 mg -11-02 tablet by ity of tablet 00:00: 04:59 mouth at [place] 00 :00 bedtime Medical for 90 Branch days. losartan 2020- No [id number] 100mg Take 1 Univers 100 mg 6-03 11- tablet by ity of tablet 00:00: 04:59 mouth [place] 00 :00 daily for Medical 90 days. Branch amLODIPine 2020- No [id number] 10mg Take 1 Univers 10 mg 6-03 11- tablet by ity of tablet 00:00: 04:59 mouth [place] 00 :00 daily for Medical 90 days. Branch atorvastati 2020- No [id number] 40mg Take 1 Univers n 40 mg 6-03 11- tablet by ity of tablet 00:00: 04:59 mouth at [place] 00 :00 bedtime Medical for 90 Branch days. losartan 2020- No [id number] 100mg Take 1 Univers 100 mg 6-02 09- tablet by ity of tablet 00:00: 00:00 mouth [place] 00 :00 daily for Medical 90 days. Branch amLODIPine 2020- No [id number] 10mg Take 1 Univers 10 mg -02 09- tablet by ity of tablet 00:00: 00:00 mouth [place] 00 :00 daily for Medical 90 days. Branch atorvastati 2020- No [id number] 40mg Take 1 Univers n 40 mg -02 09- tablet by ity of tablet 00:00: 00:00 mouth at [place] 00 :00 bedtime Medical for 90 Branch days. losartan 2020- No [id number] 100mg Take 1 Univers 100 mg -02 09- tablet by ity of tablet 00:00: 00:00 mouth [place] 00 :00 daily for Medical 90 days. Branch amLODIPine 2020- No [id number] 10mg Take 1 Univers 10 mg -02 09- tablet by ity of tablet 00:00: 00:00 mouth [place] 00 :00 daily for Medical 90 days. Branch atorvastati 2020- No [id number] 40mg Take 1 Univers n 40 mg [...] ORAL 6-15 mouth. ity of 19:51: [address] Branch promethazin Yes Take by Un inocente e HCl 6-15 mouth. ity of (PROMETHAZI 19:51: [place] NE ORAL) [address] [place] [address] Branch CLONIDINE Yes Take by Univ ers HCL 6-15 mouth. ity of (CLONIDINE 19:51: [place] ORAL) [address] [place] [address] Branch ALPRAZOLAM Yes Take by Uni vers ORAL 6-15 mouth. ity of 19:51: [address] Branch promethazin Yes Take by Un inocente e HCl 6-15 mouth. ity of (PROMETHAZI 19:51: [place] NE ORAL) [address] [place] [address] Branch CLONIDINE Yes Take by Univ ers HCL 6-15 mouth. ity of (CLONIDINE 19:51: [place] ORAL) [address] [place] [address] Branch ALPRAZOLAM Yes Take by Uni vers ORAL 6-15 mouth. ity of 19:51: [address] Branch promethazin Yes Take by Un inocente e HCl 6-15 mouth. ity of (PROMETHAZI 19:51: [place] NE ORAL) Medical Branch CLONIDINE Yes Take by Univ ers HCL 6-15 mouth. ity of (CLONIDINE 19:51: [place] ORAL) [address] [place] [address] ALPRAZOLAM Yes Take by Uni vers ORAL 6-15 mouth. ity of 19:51: [address] Branch promethazin Yes Take by Un inocente e HCl 6-15 mouth. ity of (PROMETHAZI 19:51: [place] NE ORAL) Medical Branch CLONIDINE Yes Take by Univ ers HCL 6-15 mouth. ity of (CLONIDINE 19:51: [place] ORAL) Medical Branch ALPRAZOLAM Yes Take by Uni vers ORAL 6-15 mouth. ity of 19:51: [address] Branch promethazin Yes Take by Un inocente e HCl 6-15 mouth. ity of (PROMETHAZI 19:51: [place] NE ORAL) Medical Branch CLONIDINE Yes Take by Univ ers HCL 6-15 mouth. ity of (CLONIDINE 19:51: [place] ORAL) Medical Branch ALPRAZOLAM Yes Take by Uni vers ORAL 6-15 mouth. ity of 19:51: [address] Branch promethazin Yes Take by Un inocente e HCl 6-15 mouth. ity of (PROMETHAZI 19:51: [place] NE ORAL) [address] [place] [address] Branch CLONIDINE Yes Take by Univ ers HCL 6-15 mouth. ity of (CLONIDINE 19:51: [place] ORAL) [address] [place] [address] Branch ALPRAZOLAM Yes Take by Uni vers ORAL 6-15 mouth. ity of 19:51: [address] Branch promethazin Yes Take by Un inocente e HCl 6-15 mouth. ity of (PROMETHAZI 19:51: [place] NE ORAL) [address] [place] [address] Branch CLONIDINE Yes Take by Univ ers HCL 6-15 mouth. ity of (CLONIDINE 19:51: [place] ORAL) [address] [place] [address] Branch ALPRAZOLAM Yes Take by Uni vers ORAL 6-15 mouth. ity of 19:51: [address] Branch promethazin Yes Take by Un inocente e HCl 6-15 mouth. ity of (PROMETHAZI 19:51: [place] NE ORAL) Medical Branch CLONIDINE Yes Take by Univ ers HCL 6-15 mouth. ity of (CLONIDINE 19:51: [place] ORAL) [address] [place] [address] ALPRAZOLAM Yes Take by Uni vers ORAL 6-15 mouth. ity of 19:51: [address] Branch promethazin Yes Take by Un inocente e HCl 6-15 mouth. ity of (PROMETHAZI 19:51: [place] NE ORAL) Medical Branch CLONIDINE Yes Take by Univ ers HCL 6-15 mouth. ity of (CLONIDINE 19:51: [place] ORAL) Medical Branch ALPRAZOLAM Yes Take by Uni vers ORAL 6-15 mouth. ity of 19:51: [address] Branch promethazin Yes Take by Un inocente e HCl 6-15 mouth. ity of (PROMETHAZI 19:51: [place] NE ORAL) Medical Branch CLONIDINE Yes Take by Univ ers HCL 6-15 mouth. ity of (CLONIDINE 19:51: [place] ORAL) Medical Branch ALPRAZOLAM Yes Take by Uni vers ORAL 6-15 mouth. ity of 19:51: [address] Branch promethazin Yes Take by Un inocente e HCl 6-15 mouth. ity of (PROMETHAZI 19:51: [place] NE ORAL) [address] [place] [address] Branch CLONIDINE Yes Take by Univ ers HCL 6-15 mouth. ity of (CLONIDINE 19:51: [place] ORAL) [address] [place] [address] Branch ALPRAZOLAM Yes Take by Uni vers ORAL 6-15 mouth. ity of 19:51: [address] Branch promethazin Yes Take by Un inocente e HCl 6-15 mouth. ity of (PROMETHAZI 19:51: [place] NE ORAL) [address] [place] [address] Branch CLONIDINE Yes Take by Univ ers HCL 6-15 mouth. ity of (CLONIDINE 19:51: [place] ORAL) [address] [place] [address] Branch ALPRAZOLAM Yes Take by Uni vers ORAL 6-15 mouth. ity of 19:51: [address] Branch promethazin Yes Take by Un inocente e HCl 6-15 mouth. ity of (PROMETHAZI 19:51: [place] NE ORAL) Medical Branch CLONIDINE Yes Take by Univ ers HCL 6-15 mouth. ity of (CLONIDINE 19:51: [place] ORAL) [address] [place] [address] ALPRAZOLAM Yes Take by Uni vers ORAL 6-15 mouth. ity of 19:51: [address] Branch promethazin Yes Take by Un inocente e HCl 6-15 mouth. ity of (PROMETHAZI 19:51: [place] NE ORAL) Medical Branch CLONIDINE Yes Take by Univ ers HCL 6-15 mouth. ity of (CLONIDINE 19:51: [place] ORAL) Medical Branch ALPRAZOLAM Yes Take by Uni vers ORAL 6-15 mouth. ity of 19:51: [address] Branch promethazin Yes Take by Un inocente e HCl 6-15 mouth. ity of (PROMETHAZI 19:51: [place] NE ORAL) Medical Branch CLONIDINE Yes Take by Univ ers HCL 6-15 mouth. ity of (CLONIDINE 19:51: [place] ORAL) [facility] Branch ALPRAZOLAM Yes Take by Uni vers ORAL 6-15 mouth. ity of 19:51: [address] Branch promethazin Yes Take by Un inocente e HCl 6-15 mouth. ity of (PROMETHAZI 19:51: [place] NE ORAL) [address] [place] [address] Branch CLONIDINE Yes Take by Univ ers HCL 6-15 mouth. ity of (CLONIDINE 19:51: [place] ORAL) [address] [place] [address] Branch ALPRAZOLAM Yes Take by Uni vers ORAL 6-15 mouth. ity of 19:51: [address] Branch promethazin Yes Take by Un inocente e HCl 6-15 mouth. ity of (PROMETHAZI 19:51: [place] NE ORAL) [address] [place] [address] CLONIDINE 0 Yes Take by Univ ers HCL 6-15 mouth. ity of (CLONIDINE 19:51: [place] ORAL) [address] [place] [address] ALPRAZOLAM Yes Take by Uni vers ORAL 6-15 mouth. ity of 19:51: [address] Branch promethazin Yes Take by Un inocente e HCl 6-15 mouth. ity of (PROMETHAZI 19:51: [place] NE ORAL) [address] [place] [address] Branch CLONIDINE Yes Take by Univ ers HCL 6-15 mouth. ity of (CLONIDINE 19:51: [place] ORAL) [address] [place] [address] Branch ALPRAZOLAM Yes Take by Uni vers ORAL 6-15 mouth. ity of 19:51: [address] promethazin Yes Take by Un inocente e HCl 6-15 mouth. ity of (PROMETHAZI 19:51: [place] NE ORAL) [address] [place] [address] NaCl 0.9% 2020- No 500mL at 999 Univ ers (NS) bolus 07-20 06-09 mL/hr, 500 it y of infusion 19:00: 18:20 mL, IV [place] 500 mL 00 :00 Infusion, Medical ONCE, 1 Branch dose, Sat07/20/20 at 1400, STAT fluticasone 0 Yes [id number] 2{spray Use 2 Univers propionate 07-20 } Sprays in ity of 50 00:00: each [place] mcg/actuati 00 nostril Medic al on nasal daily. Branch spray fluticasone Yes [id number] 2{puff} Inhale 2 Univers propionate 6-09 Puffs ity of (FLOVENT 00:00: every 12 [place] HFA) 220 00 (twelve) Medical mcg/actuati hours. Branch on inhaler albuterol Yes [id number] 2{puff} Inhale 2 Univers 90 6-09 Puffs [...] 7-10). Indication s: acute pain fluticasone Yes [id number] 2{spray Use 2 Univers propionate 6-09 } Sprays in ity of 50 00:00: each [place] mcg/actuati 00 nostril Medic al on nasal daily. Branch spray fluticasone Yes [id number] 2{puff} Inhale 2 Univers propionate 6-09 Puffs ity of (FLOVENT 00:00: every 12 [place] HFA) 220 00 (twelve) Medical mcg/actuati hours. Branch on inhaler albuterol Yes [id number] 2{puff} Inhale 2 Univers 90 6-09 Puffs [...] 7-10). Indication s: acute pain fluticasone Yes [id number] 2{spray Use 2 Univers propionate 6-09 } Sprays in ity of 50 00:00: each [place] mcg/actuati 00 nostril Medic al on nasal daily. Branch spray fluticasone Yes [id number] 2{puff} Inhale 2 Univers propionate 6-09 Puffs ity of (FLOVENT 00:00: every 12 [place] HFA) 220 00 (twelve) Medical mcg/actuati hours. Branch on inhaler albuterol Yes [id number] 2{puff} Inhale 2 Univers 90 6-09 Puffs [...] 7-10). Indication s: acute pain fluticasone Yes [id number] 2{spray Use 2 Univers propionate 6-09 } Sprays in ity of 50 00:00: each [place] mcg/actuati 00 nostril Medic al on nasal daily. Branch spray fluticasone Yes [id number] 2{puff} Inhale 2 Univers propionate 6-09 Puffs ity of (FLOVENT 00:00: every 12 [place] HFA) 220 00 (twelve) Medical mcg/actuati hours. Branch on inhaler albuterol Yes [id number] 2{puff} Inhale 2 Univers 90 6-09 Puffs [...] Indication s: acute pain fluticasone 2020-0 Yes [id number] 2{spray Use 2 Univers propionate 6-09 } Sprays in ity of 50 00:00: each [place] mcg/actuati 00 nostril Medic al on nasal daily. Branch spray fluticasone 0 Yes [id number] 2{puff} Inhale 2 Univers propionate 6-09 Puffs ity of (FLOVENT 00:00: every 12 [place] HFA) 220 00 (twelve) Medical mcg/actuati hours. Branch on inhaler albuterol Yes [id number] 2{puff} Inhale 2 Univers 90 6-09 Puffs [...] 7-10). Indication s: acute pain fluticasone Yes [id number] 2{spray Use 2 Univers propionate 6-09 } Sprays in ity of 50 00:00: each [place] mcg/actuati 00 nostril Medic al on nasal daily. Branch spray fluticasone Yes [id number] 2{puff} Inhale 2 Univers propionate 6-09 Puffs ity of (FLOVENT 00:00: every 12 [place] HFA) 220 00 (twelve) Medical mcg/actuati hours. Branch on inhaler albuterol Yes [id number] 2{puff} Inhale 2 Univers 90 6-09 Puffs [...] 7-10). Indication s: acute pain fluticasone Yes [id number] 2{spray Use 2 Univers propionate 6-09 } Sprays in ity of 50 00:00: each [place] mcg/actuati 00 nostril Medic al on nasal daily. Branch spray fluticasone Yes [id number] 2{puff} Inhale 2 Univers propionate 6-09 Puffs ity of (FLOVENT 00:00: every 12 [place] HFA) 220 00 (twelve) Medical mcg/actuati hours. Branch on inhaler albuterol Yes [id number] 2{puff} Inhale 2 Univers 90 6-09 Puffs [...] Indication s: acute pain fluticasone 0 Yes [id number] 2{spray Use 2 Univers propionate 6-09 } Sprays in ity of 50 00:00: each [place] mcg/actuati 00 nostril Medic al on nasal daily. Branch spray fluticasone 2020-0 Yes [id number] 2{puff} Inhale 2 Univers propionate 6-09 Puffs ity of (FLOVENT 00:00: every 12 [place] HFA) 220 00 (twelve) Medical mcg/actuati hours. Branch on inhaler albuterol Yes [id number] 2{puff} Inhale 2 Univers 90 6-09 Puffs [...] Indication s: acute pain fluticasone 2020-0 Yes [id number] 2{spray Use 2 Univers propionate 6-09 } Sprays in ity of 50 00:00: each [place] mcg/actuati 00 nostril Medic al on nasal daily. Branch spray fluticasone 2020-0 Yes [id number] 2{puff} Inhale 2 Univers propionate 6-09 Puffs ity of (FLOVENT 00:00: every 12 [place] HFA) 220 00 (twelve) Medical mcg/actuati hours. Branch on inhaler albuterol 2020-0 Yes [id number] 2{puff} Inhale 2 Univers 90 6-09 Puffs [...] Indication s: acute pain fluticasone 0 Yes [id number] 2{spray Use 2 Univers propionate 6-09 } Sprays in ity of 50 00:00: each [place] mcg/actuati 00 nostril Medic al on nasal daily. Branch spray fluticasone 0 Yes [id number] 2{puff} Inhale 2 Univers propionate 6-09 Puffs ity of (FLOVENT 00:00: every 12 [place] HFA) 220 00 (twelve) Medical mcg/actuati hours. Branch on inhaler albuterol 0 Yes [id number] 2{puff} Inhale 2 Univers 90 6-09 Puffs [...] 7-10). Indication s: acute pain fluticasone Yes [id number] 2{spray Use 2 Univers propionate 6-09 } Sprays in ity of 50 00:00: each [place] mcg/actuati 00 nostril Medic al on nasal daily. Branch spray fluticasone 0 Yes [id number] 2{puff} Inhale 2 Univers propionate 6-09 Puffs ity of (FLOVENT 00:00: every 12 [place] HFA) 220 00 (twelve) Medical mcg/actuati hours. Branch on inhaler albuterol 0 Yes [id number] 2{puff} Inhale 2 Univers 90 6-09 Puffs [...] 7-10). Indication s: acute pain fluticasone Yes [id number] 2{spray Use 2 [facility] propionate 6-09 } Sprays in ity of 50 00:00: each [place] mcg/actuati 00 nostril Medic al on nasal daily. Branch spray fluticasone Yes [id number] 2{puff} Inhale 2 [facility] propionate 6-09 Puffs ity of (FLOVENT 00:00: every 12 [place] HFA) 220 00 (twelve) Medical mcg/actuati hours. Branch on inhaler albuterol Yes [id number] 2{puff} Inhale 2 Univers 90 6-09 Puffs [...] 7-10). Indication s: acute pain fluticasone Yes [id number] 2{spray Use 2 [facility] propionate 6-09 } Sprays in ity of 50 00:00: each [place] mcg/actuati 00 nostril Medic al on nasal daily. Branch spray fluticasone Yes [id number] 2{puff} Inhale 2 Univers propionate 6-09 Puffs ity of (FLOVENT 00:00: every 12 [place] HFA) 220 00 (twelve) Medical mcg/actuati hours. Branch on inhaler albuterol Yes [id number] 2{puff} Inhale 2 Univers 90 6-09 Puffs [...] 7-10). Indication s: acute pain fluticasone Yes [id number] 2{spray Use 2 [facility] propionate 6-09 } Sprays in ity of 50 00:00: each [place] mcg/actuati 00 nostril Medic al on nasal daily. Branch spray fluticasone Yes [id number] 2{puff} Inhale 2 [facility] propionate 6-09 Puffs ity of (FLOVENT 00:00: every 12 [place] HFA) 220 00 (twelve) Medical mcg/actuati hours. Branch on inhaler albuterol Yes [id number] 2{puff} Inhale 2 Univers 90 6-09 Puffs [...] 7-10). Indication s: acute pain fluticasone Yes [id number] 2{spray Use 2 [facility] propionate 6-09 } Sprays in ity of 50 00:00: each [place] mcg/actuati 00 nostril Medic al on nasal daily. Branch spray fluticasone Yes [id number] 2{puff} Inhale 2 Univers propionate 6-09 Puffs ity of (FLOVENT 00:00: every 12 [place] HFA) 220 00 (twelve) Medical mcg/actuati hours. Branch on inhaler albuterol Yes [id number] 2{puff} Inhale 2 Univers 90 6-09 Puffs [...] 7-10). Indication s: acute pain fluticasone Yes [id number] 2{spray Use 2 [facility] propionate 6-09 } Sprays in ity of 50 00:00: each [place] mcg/actuati 00 nostril Medic al on nasal daily. Branch spray fluticasone Yes [id number] 2{puff} Inhale 2 [facility] propionate 6-09 Puffs ity of (FLOVENT 00:00: every 12 [place] HFA) 220 00 (twelve) Medical mcg/actuati hours. Branch on inhaler albuterol Yes [id number] 2{puff} Inhale 2 Univers 90 6-09 Puffs [...] 7-10). Indication s: acute pain fluticasone Yes [id number] 2{spray Use 2 [facility] propionate 6-09 } Sprays in ity of 50 00:00: each [place] mcg/actuati 00 nostril Medic al on nasal daily. Branch spray fluticasone Yes [id number] 2{puff} Inhale 2 Univers propionate 6-09 Puffs ity of (FLOVENT 00:00: every 12 [place] HFA) 220 00 (twelve) Medical mcg/actuati hours. Branch on inhaler albuterol Yes [id number] 2{puff} Inhale 2 Univers 90 6-09 Puffs [...] 7-10). Indication s: acute pain fluticasone Yes [id number] 2{spray Use 2 [facility] propionate 6-09 } Sprays in ity of 50 00:00: each [place] mcg/actuati 00 nostril Medic al on nasal daily. Branch spray fluticasone Yes [id number] 2{puff} Inhale 2 [facility] propionate 6-09 Puffs ity of (FLOVENT 00:00: every 12 [place] HFA) 220 00 (twelve) Medical mcg/actuati hours. Branch on inhaler albuterol Yes [id number] 2{puff} Inhale 2 Univers 90 6-09 Puffs [...] 7-10). Indication s: acute pain fluticasone Yes [id number] 2{spray Use 2 [facility] propionate 6-09 } Sprays in ity of 50 00:00: each [place] mcg/actuati 00 nostril Medic al on nasal daily. Branch spray fluticasone Yes [id number] 2{puff} Inhale 2 [facility] propionate 6-09 Puffs ity of (FLOVENT 00:00: every 12 [place] HFA) 220 00 (twelve) Medical mcg/actuati hours. Branch on inhaler albuterol Yes [id number] 2{puff} Inhale 2 Univers 90 6-09 Puffs [...] Indication s: acute pain fluticasone 0 Yes [id number] 2{spray Use 2 [facility] propionate 6-09 } Sprays in ity of 50 00:00: each [place] mcg/actuati 00 nostril Medic al on nasal daily. Branch spray fluticasone Yes [id number] 2{puff} Inhale 2 [facility] propionate 6-09 Puffs ity of (FLOVENT 00:00: every 12 [place] HFA) 220 00 (twelve) Medical mcg/actuati hours. Branch on inhaler albuterol Yes [id number] 2{puff} Inhale 2 Univers 90 6-09 Puffs [...] 7-10). Indication s: acute pain fluticasone Yes [id number] 2{spray Use 2 [facility] propionate 6-09 } Sprays in ity of 50 00:00: each [place] mcg/actuati 00 nostril Medic al on nasal daily. Branch spray fluticasone Yes [id number] 2{puff} Inhale 2 Univers propionate 6-09 Puffs ity of (FLOVENT 00:00: every 12 [place] HFA) 220 00 (twelve) Medical mcg/actuati hours. Branch on inhaler albuterol Yes [id number] 2{puff} Inhale 2 Univers 90 6-09 Puffs [...] 7-10). Indication s: acute pain fluticasone Yes [id number] 2{spray Use 2 [facility] propionate 6-09 } Sprays in ity of 50 00:00: each [place] mcg/actuati 00 nostril Medic al on nasal daily. Branch spray fluticasone 0 Yes [id number] 2{puff} Inhale 2 [facility] propionate 6-09 Puffs ity of (FLOVENT 00:00: every 12 [place] HFA) 220 00 (twelve) Medical mcg/actuati hours. Branch on inhaler albuterol Yes [id number] 2{puff} Inhale 2 [facility] 90 6-09 Puffs [...] ch 10 mg 1545, STAT ibuprofen Yes [id number] 600mg Take 1 [facility] 600 mg 5-21 tablet by ity of tablet 00:00: mouth [place] 00 every 6 Medical (six) Branch hours as needed for Pain (scale 4-6). cyclobenzap Yes [id number] 5mg Take 1 [facility] rine 5 mg 5-21 tablet by ity o f tablet 00:00: mouth 3 [place] 00 (three) Medical times Branch daily as needed for Muscle Spasms. ibuprofen Yes [id number] 600mg Take 1 [facility] 600 mg 5-21 tablet by ity of tablet 00:00: mouth [place] 00 every 6 Medical (six) Branch hours as needed for Pain (scale 4-6). cyclobenzap 0 Yes [id number] 5mg Take 1 [facility] rine 5 mg 5-21 tablet by ity o f tablet 00:00: mouth 3 [place] 00 (three) Medical times Branch daily as needed for Muscle Spasms. albuterol 2021-0 Yes [id number] 2{puff} Inhale 2 [facility] 90 5-21 Puffs ity of mcg/actuati 00:00: every 4 [place] on inhaler 00 (four) Medical hours as Branch needed for Wheezing or Shortness of Breath. ibuprofen 2020-0 Yes [id number] 600mg Take 1 [facility] 600 mg 5-21 tablet by ity of tablet 00:00: mouth [place] 00 every 6 Medical (six) Branch hours as needed for Pain (scale 4-6). cyclobenzap 2020-0 Yes [id number] 5mg Take 1 [facility] rine 5 mg 5-21 tablet by ity o f tablet 00:00: mouth 3 [place] 00 (three) Medical times Branch daily as needed for Muscle Spasms. ibuprofen 2020-0 Yes [id number] 600mg Take 1 [facility] 600 mg 5-21 tablet by ity of tablet 00:00: mouth [place] 00 every 6 Medical (six) Branch hours as needed for Pain (scale 4-6). cyclobenzap 2020-0 Yes [id number] 5mg Take 1 [facility] rine 5 mg 5-21 tablet by ity o f tablet 00:00: mouth 3 [place] 00 (three) Medical times Branch daily as needed for Muscle Spasms. ibuprofen 2020-0 Yes [id number] 600mg Take 1 [facility] 600 mg 5-21 tablet by ity of tablet 00:00: mouth [place] 00 every 6 Medical (six) Branch hours as needed for Pain (scale 4-6). cyclobenzap 2020-0 Yes [id number] 5mg Take 1 [facility] rine 5 mg 5-21 tablet by ity o f tablet 00:00: mouth 3 [place] 00 (three) Medical times Branch daily as needed for Muscle Spasms. ibuprofen 2020-0 Yes [id number] 600mg Take 1 [facility] 600 mg 5-21 tablet by ity of tablet 00:00: mouth [place] 00 every 6 Medical (six) Branch hours as needed for Pain (scale 4-6). cyclobenzap 202-0 Yes [id number] 5mg Take 1 [facility] rine 5 mg 5-21 tablet by ity o f tablet 00:00: mouth 3 [place] 00 (three) Medical times Branch daily as needed for Muscle Spasms. ibuprofen 2020-0 Yes [id number] 600mg Take 1 [facility] 600 mg 5-21 tablet by ity of tablet 00:00: mouth [place] 00 every 6 Medical (six) Branch hours as needed for Pain (scale 4-6). cyclobenzap 2021-0 Yes [id number] 5mg Take 1 [facility] rine 5 mg 5-21 tablet by ity o f tablet 00:00: mouth 3 [place] 00 (three) Medical times Branch daily as needed for Muscle Spasms. ibuprofen 2021-0 Yes [id number] 600mg Take 1 [facility] 600 mg 5-21 tablet by ity of tablet 00:00: mouth [place] 00 every 6 Medical (six) Branch hours as needed for Pain (scale 4-6). cyclobenzap 2021-0 Yes [id number] 5mg Take 1 [facility] rine 5 mg 5-21 tablet by ity o f tablet 00:00: mouth 3 [place] 00 (three) Medical times Branch daily as needed for Muscle Spasms. ibuprofen 1-0 Yes [id number] 600mg Take 1 [facility] 600 mg 5-21 tablet by ity of tablet 00:00: mouth [place] 00 every 6 Medical (six) Branch hours as needed for Pain (scale 4-6). cyclobenzap 2021-0 Yes [id number] 5mg Take 1 [facility] rine 5 mg 5-21 tablet by ity o f tablet 00:00: mouth 3 [place] 00 (three) Medical times Branch daily as needed for Muscle Spasms. ibuprofen 1-0 Yes [id number] 600mg Take 1 [facility] 600 mg 5-21 tablet by ity of tablet 00:00: mouth [place] 00 every 6 Medical (six) Branch hours as needed for Pain (scale 4-6). cyclobenzap 2021-0 Yes [id number] 5mg Take 1 [facility] rine 5 mg 5-21 tablet by ity o f tablet 00:00: mouth 3 [place] 00 (three) Medical times Branch daily as needed for Muscle Spasms. ibuprofen 2021-0 Yes [id number] 600mg Take 1 [facility] 600 mg 5-21 tablet by ity of tablet 00:00: mouth [place] 00 every 6 Medical (six) Branch hours as needed for Pain (scale 4-6). cyclobenzap 2021-0 Yes [id number] 5mg Take 1 [facility] rine 5 mg 5-21 tablet by ity o f tablet 00:00: mouth 3 [place] 00 (three) Medical times Branch daily as needed for Muscle Spasms. ibuprofen 2021-0 Yes [id number] 600mg Take 1 [facility] 600 mg 5-21 tablet by ity of tablet 00:00: mouth [place] 00 every 6 Medical (six) Branch hours as needed for Pain (scale 4-6). cyclobenzap 2021-0 Yes [id number] 5mg Take 1 [facility] rine 5 mg 5-21 tablet by ity o f tablet 00:00: mouth 3 [place] 00 (three) Medical times Branch daily as needed for Muscle Spasms. ibuprofen 2021-0 Yes [id number] 600mg Take 1 [facility] 600 mg 5-21 tablet by ity of tablet 00:00: mouth [place] 00 every 6 Medical (six) Branch hours as needed for Pain (scale 4-6). cyclobenzap 2021-0 Yes [id number] 5mg Take 1 [facility] rine 5 mg 5-21 tablet by ity o f tablet 00:00: mouth 3 [place] 00 (three) Medical times Branch daily as needed for Muscle Spasms. ibuprofen 2020-0 Yes [id number] 600mg Take 1 [facility] 600 mg 5-21 tablet by ity of tablet 00:00: mouth [place] 00 every 6 Medical (six) Branch hours as needed for Pain (scale 4-6). cyclobenzap 2021-0 Yes [id number] 5mg Take 1 [facility] rine 5 mg 5-21 tablet by ity o f tablet 00:00: mouth 3 [place] 00 (three) Medical times Branch daily as needed for Muscle Spasms. ibuprofen 2021-0 Yes [id number] 600mg Take 1 [facility] 600 mg 5-21 tablet by ity of tablet 00:00: mouth [place] 00 every 6 Medical (six) Branch hours as needed for Pain (scale 4-6). cyclobenzap 2021-0 Yes [id number] 5mg Take 1 [facility] rine 5 mg 5-21 tablet by ity o f tablet 00:00: mouth 3 [place] 00 (three) Medical times Branch daily as needed for Muscle Spasms. ibuprofen 2021-0 Yes [id number] 600mg Take 1 [facility] 600 mg 5-21 tablet by ity of tablet 00:00: mouth [place] 00 every 6 Medical (six) Branch hours as needed for Pain (scale 4-6). cyclobenzap 2021-0 Yes [id number] 5mg Take 1 [facility] rine 5 mg 5-21 tablet by ity o f tablet 00:00: mouth 3 [place] 00 (three) Medical times Branch daily as needed for Muscle Spasms. ibuprofen 2021-0 Yes [id number] 600mg Take 1 [facility] 600 mg 5-21 tablet by ity of tablet 00:00: mouth [place] 00 every 6 Medical (six) Branch hours as needed for Pain (scale 4-6). cyclobenzap 2021-0 Yes [id number] 5mg Take 1 [facility] rine 5 mg 5-21 tablet by ity o f tablet 00:00: mouth 3 [place] 00 (three) Medical times Branch daily as needed for Muscle Spasms. ibuprofen 2021-0 Yes [id number] 600mg Take 1 [facility] 600 mg 5-21 tablet by ity of tablet 00:00: mouth [place] 00 every 6 Medical (six) Branch hours as needed for Pain (scale 4-6). cyclobenzap 1-0 Yes [id number] 5mg Take 1 [facility] rine 5 mg 5-21 tablet by ity o f tablet 00:00: mouth 3 00 (three) Medical times Branch daily as needed for Muscle Spasms. ibuprofen 1-0 Yes [id number] 600mg Take 1 [facility] 600 mg 5-21 tablet by ity of tablet 00:00: mouth [place] 00 every 6 Medical (six) Branch hours as needed for Pain (scale 4-6). cyclobenzap 1-0 Yes [id number] 5mg Take 1 [facility] rine 5 mg 5-21 tablet by ity o f tablet 00:00: mouth 3 00 (three) Medical times Branch daily as needed for Muscle Spasms. ibuprofen 2021-0 Yes [id number] 600mg Take 1 [facility] 600 mg 5-21 tablet by ity of tablet 00:00: mouth [place] 00 every 6 Medical (six) Branch hours as needed for Pain (scale 4-6). cyclobenzap 2021-0 Yes [id number] 5mg Take 1 [facility] rine 5 mg 5-21 tablet by ity o f tablet 00:00: mouth 3 [place] 00 (three) Medical times Branch daily as needed for Muscle Spasms. ibuprofen 2021-0 Yes [id number] 600mg Take 1 [facility] 600 mg 5-21 tablet by ity of tablet 00:00: mouth [place] 00 every 6 Medical (six) Branch hours as needed for Pain (scale 4-6). cyclobenzap 2021-0 Yes [id number] 5mg Take 1 [facility] rine 5 mg 5-21 tablet by ity o f tablet 00:00: mouth 3 (three) Medical times Branch daily as needed for Muscle Spasms. ibuprofen 2020-0 Yes [id number] 600mg Take 1 [facility] 600 mg 5-21 tablet by ity of tablet 00:00: mouth [place] 00 every 6 Medical (six) Branch hours as needed for Pain (scale 4-6). cyclobenzap 2020-0 Yes [id number] 5mg Take 1 [facility] rine 5 mg 5-21 tablet by ity o f tablet 00:00: mouth 3 00 (three) Medical times Branch daily as needed for Muscle Spasms. ibuprofen 2020-0 Yes [id number] 600mg Take 1 [facility] 600 mg 5-21 tablet by ity of tablet 00:00: mouth 00 every 6 Medical (six) Branch hours as needed for Pain (scale 4-6). cyclobenzap 2020-0 Yes [id number] 5mg Take 1 [facility] rine 5 mg 5-21 tablet by ity o f tablet 00:00: mouth 3 (three) Medical times Branch daily as needed for Muscle Spasms. albuterol 2020- No [id number] 2{puff} Inhale 2 [facility] 90 5-21 06-09 [...] mouth ity of tablet 00:00: 00:00 daily. [place] 00 :00 Medical Branch losartan 2020-0 2021- No 100mg Take 100 [facility] vers 100 mg 5-07 06-23 mg by ity of tablet 00:00: 00:00 mouth [place] 00 :00 daily. Medical Branch atorvastati 2020-0 2020- No 40mg Take 40 mg [facility] n 40 mg 5-07 06-23 by mouth ity of tablet 00:00: 00:00 daily. [place] 00 :00 Medical Branch ibuprofen 2018-02 Yes [id number] 800mg Take 1 [facility] 800 mg 0-07 tablet by ity of tablet 00:00: mouth [place] 00 every 8 Medical (eight) Branch hours as needed for Pain (scale 1-3). chlorhexidi 2018-02 Yes [id number] 15mL [facility] ne 0-07 spit out ity of (PERIDEX) 00:00: 15 mL 2 [place] 0.12 % 00 (two) Medical mouthwash times Branch daily. ibuprofen 2018-02 Yes [id number] 800mg Take 1 [facility] n[facility] 800 mg 0-07 tablet by ity of tablet 00:00: mouth [place] 00 every 8 Medical (eight) Branch hours as needed for Pain (scale 1-3). chlorhexidi 2018-02 Yes [id number] 15mL [facility] ne 0-07 spit out ity of (PERIDEX) 00:00: 15 mL 2 [place] 0.12 % 00 (two) Medical mouthwash times Branch daily. ibuprofen 2018-02 Yes [id number] 800mg Take 1 [facility] n[facility] 800 mg 0-07 tablet by ity of tablet 00:00: mouth [place] 00 every 8 Medical (eight) Branch hours as needed for Pain (scale 1-3). chlorhexidi 2018-02 Yes [id number] 15mL [facility] ne 0-07 spit out ity of (PERIDEX) 00:00: 15 mL 2 [place] 0.12 % 00 (two) Medical mouthwash times Branch daily. ibuprofen 2018-02 Yes [id number] 800mg Take 1 [facility] n[facility] 800 mg 0-07 tablet by ity of tablet 00:00: mouth [place] 00 every 8 Medical (eight) Branch hours as needed for Pain (scale 1-3). chlorhexidi 2018-02 Yes [id number] 15mL [facility] ne 0-07 spit out ity of (PERIDEX) 00:00: 15 mL 2 [place] 0.12 % 00 (two) Medical mouthwash times Branch daily. ibuprofen 2018-02 Yes [id number] 800mg Take 1 [facility] n[facility] 800 mg 0-07 tablet by ity of tablet 00:00: mouth [place] 00 every 8 Medical (eight) Branch hours as needed for Pain (scale 1-3). chlorhexidi 2018-02 Yes [id number] 15mL [facility] ne 0-07 spit out ity of (PERIDEX) 00:00: 15 mL 2 [place] 0.12 % 00 (two) Medical mouthwash times Branch daily. ibuprofen 2018-02 Yes [id number] 800mg Take 1 [facility] n[facility] 800 mg 0-07 tablet by ity of tablet 00:00: mouth [place] 00 every 8 Medical (eight) Branch hours as needed for Pain (scale 1-3). chlorhexidi 2018-02 Yes [id number] 15mL [facility] ne 0-07 spit out ity of (PERIDEX) 00:00: 15 mL 2 [place] 0.12 % 00 (two) Medical mouthwash times Branch daily. ibuprofen 2018-02 Yes [id number] 800mg Take 1 [facility] n[facility] 800 mg 0-07 tablet by ity of tablet 00:00: mouth [place] 00 every 8 Medical (eight) Branch hours as needed for Pain (scale 1-3). chlorhexidi 2018-02 Yes [id number] 15mL [facility] ne 0-07 spit out ity of (PERIDEX) 00:00: 15 mL 2 [place] 0.12 % 00 (two) Medical mouthwash times Branch daily. ibuprofen 2018-02 Yes [id number] 800mg Take 1 [facility] n[facility] 800 mg 0-07 tablet by ity of tablet 00:00: mouth [place] 00 every 8 Medical (eight) Branch hours as needed for Pain (scale 1-3). chlorhexidi 2018-02 Yes [id number] 15mL [facility] ne 0-07 spit out ity of (PERIDEX) 00:00: 15 mL 2 [place] 0.12 % 00 (two) Medical mouthwash times Branch daily. ibuprofen 2018-02 Yes [id number] 800mg Take 1 [facility] n[facility] 800 mg 0-07 tablet by ity of tablet 00:00: mouth [place] 00 every 8 Medical (eight) Branch hours as needed for Pain (scale 1-3). chlorhexidi 2018-02 Yes [id number] 15mL [facility] ne 0-07 spit out ity of (PERIDEX) 00:00: 15 mL 2 [place] 0.12 % 00 (two) Medical mouthwash times Branch daily. ibuprofen 2018-02 Yes [id number] 800mg Take 1 [facility] n[facility] 800 mg 0-07 tablet by ity of tablet 00:00: mouth [place] 00 every 8 Medical (eight) Branch hours as needed for Pain (scale 1-3). chlorhexidi 2018-02 Yes [id number] 15mL [facility] ne 0-07 spit out ity of (PERIDEX) 00:00: 15 mL 2 [place] 0.12 % 00 (two) Medical mouthwash times Branch daily. ibuprofen 2018-02 Yes [id number] 800mg Take 1 [facility] n[facility] 800 mg 0-07 tablet by ity of tablet 00:00: mouth [place] 00 every 8 Medical (eight) Branch hours as needed for Pain (scale 1-3). chlorhexidi 2018-02 Yes [id number] 15mL [facility] ne 0-07 spit out ity of (PERIDEX) 00:00: 15 mL 2 [place] 0.12 % 00 (two) Medical mouthwash times Branch daily. ibuprofen 2018-02 Yes [id number] 800mg Take 1 [facility] n[facility] 800 mg 0-07 tablet by ity of tablet 00:00: mouth [place] 00 every 8 Medical (eight) Branch hours as needed for Pain (scale 1-3). chlorhexidi 2018-02 Yes [id number] 15mL [facility] ne 0-07 spit out ity of (PERIDEX) 00:00: 15 mL 2 [place] 0.12 % 00 (two) Medical mouthwash times Branch daily. ibuprofen 2018-02 Yes [id number] 800mg Take 1 [facility] n[facility] 800 mg 0-07 tablet by ity of tablet 00:00: mouth [place] 00 every 8 Medical (eight) Branch hours as needed for Pain (scale 1-3). chlorhexidi 2018-02 Yes [id number] 15mL [facility] ne 0-07 spit out ity of (PERIDEX) 00:00: 15 mL 2 [place] 0.12 % 00 (two) Medical mouthwash times Branch daily. ibuprofen 2018-02 Yes [id number] 800mg Take 1 [facility] n[facility] 800 mg 0-07 tablet by ity of tablet 00:00: mouth [place] 00 every 8 Medical (eight) Branch hours as needed for Pain (scale 1-3). chlorhexidi 2018-02 Yes [id number] 15mL [facility] ne 0-07 spit out ity of (PERIDEX) 00:00: 15 mL 2 [place] 0.12 % 00 (two) Medical mouthwash times Branch daily. ibuprofen 2018-02 Yes [id number] 800mg Take 1 [facility] n[facility] 800 mg 0-07 tablet by ity of tablet 00:00: mouth [place] 00 every 8 Medical (eight) Branch hours as needed for Pain (scale 1-3). chlorhexidi 2018-02 Yes [id number] 15mL [facility] ne 0-07 spit out ity of (PERIDEX) 00:00: 15 mL 2 [place] 0.12 % 00 (two) Medical mouthwash times Branch daily. ibuprofen 2018-02 Yes [id number] 800mg Take 1 [facility] n[facility] 800 mg 0-07 tablet by ity of tablet 00:00: mouth [place] 00 every 8 Medical (eight) Branch hours as needed for Pain (scale 1-3). chlorhexidi 2018-02 Yes [id number] 15mL [facility] ne 0-07 spit out ity of (PERIDEX) 00:00: 15 mL 2 [place] 0.12 % 00 (two) Medical mouthwash times Branch daily. ibuprofen 2018-02 Yes [id number] 800mg Take 1 [facility] n[facility] 800 mg 0-07 tablet by ity of tablet 00:00: mouth [place] 00 every 8 Medical (eight) Branch hours as needed for Pain (scale 1-3). chlorhexidi 2018-02 Yes [id number] 15mL [facility] ne 0-07 spit out ity of (PERIDEX) 00:00: 15 mL 2 [place] 0.12 % 00 (two) Medical mouthwash times Branch daily. ibuprofen 2018-02 Yes [id number] 800mg Take 1 [facility] n[facility] 800 mg 0-07 tablet by ity of tablet 00:00: mouth [place] 00 every 8 Medical (eight) Branch hours as needed for Pain (scale 1-3). chlorhexidi 2018-02 Yes [id number] 15mL [facility] ne 0-07 spit out ity of (PERIDEX) 00:00: 15 mL 2 [place] 0.12 % 00 (two) Medical mouthwash times Branch daily. ibuprofen 2018-02 Yes [id number] 800mg Take 1 [facility] n[facility] 800 mg 0-07 tablet by ity of tablet 00:00: mouth [place] 00 every 8 Medical (eight) Branch hours as needed for Pain (scale 1-3). chlorhexidi 2018-02 Yes [id number] 15mL [facility] ne 0-07 spit out ity of (PERIDEX) 00:00: 15 mL 2 [place] 0.12 % 00 (two) Medical mouthwash times Branch daily. ibuprofen 2018-02 Yes [id number] 800mg Take 1 [facility] n[facility] 800 mg 0-07 tablet by ity of tablet 00:00: mouth [place] 00 every 8 Medical (eight) Branch hours as needed for Pain (scale 1-3). chlorhexidi 2018-02 Yes [id number] 15mL [facility] ne 0-07 spit out ity of (PERIDEX) 00:00: 15 mL 2 [place] 0.12 % 00 (two) Medical mouthwash times Branch daily. ibuprofen 2018-02 Yes [id number] 800mg Take 1 [facility] n[facility] 800 mg 0-07 tablet by ity of tablet 00:00: mouth [place] 00 every 8 Medical (eight) Branch hours as needed for Pain (scale 1-3). chlorhexidi 2018-02 Yes [id number] 15mL [facility] ne 0-07 spit out ity of (PERIDEX) 00:00: 15 mL 2 [place] 0.12 % 00 (two) Medical mouthwash times Branch daily. ibuprofen 2018-02 Yes [id number] 800mg Take 1 [facility] n[facility] 800 mg 0-07 tablet by ity of tablet 00:00: mouth [place] 00 every 8 Medical (eight) Branch hours as needed for Pain (scale 1-3). chlorhexidi 2018-02 Yes [id number] 15mL [facility] ne 0-07 spit out ity of (PERIDEX) 00:00: 15 mL 2 [place] 0.12 % 00 (two) Medical mouthwash times Branch daily. ibuprofen 2018-02 Yes [id number] 800mg Take 1 [facility] 800 mg 0-07 tablet by ity of tablet 00:00: mouth [place] 00 every 8 Medical (eight) Branch hours as needed for Pain (scale 1-3). chlorhexidi 2018-02 Yes [id number] 15mL [facility] ne 0-07 spit out ity of (PERIDEX) 00:00: 15 mL 2 [place] 0.12 % 00 (two) Medical mouthwash times Branch daily. benzonatate Yes [id number] 100mg Take 1 [facility] 100 mg 4-29 capsule by ity of capsule 00:00: mouth 3 [place] 00 (three) Medical times Branch daily as needed for Cough. benzonatate Yes [id number] 100mg Take 1 [facility] 100 mg 4-29 capsule by ity of capsule 00:00: mouth 3 [place] 00 (three) Medical times Branch daily as needed for Cough. albuterol Yes [id number] 2{puff} Inhale 2 [facility] 90 4-29 Puffs ity of mcg/actuati 00:00: every 4 [place] on inhaler 00 (four) Medical hours as Branch needed for Wheezing or Shortness of Breath. benzonatate Yes [id number] 100mg Take 1 [facility] 100 mg 4-29 capsule by ity of capsule 00:00: mouth 3 [place] 00 (three) Medical times Branch daily as needed for Cough. benzonatate Yes [id number] 100mg Take 1 [facility] 100 mg 4-29 capsule by ity of capsule 00:00: mouth 3 (three) Medical times Branch daily as needed for Cough. benzonatate 0 Yes [id number] 100mg Take 1 [facility] 100 mg 4-29 capsule by ity of capsule 00:00: mouth 3 (three) Medical times Branch daily as needed for Cough. benzonatate Yes [id number] 100mg Take 1 [facility] 100 mg 4-29 capsule by ity of capsule 00:00: mouth 3 (three) Medical times Branch daily as needed for Cough. benzonatate Yes [id number] 100mg Take 1 [facility] 100 mg 4-29 capsule by ity of capsule 00:00: mouth 3 (three) Medical times Branch daily as needed for Cough. benzonatate Yes [id number] 100mg Take 1 [facility] 100 mg 4-29 capsule by ity of capsule 00:00: mouth 3 (three) Medical times Branch daily as needed for Cough. benzonatate Yes [id number] 100mg Take 1 [facility] 100 mg 4-29 capsule by ity of capsule 00:00: mouth (three) Medical times Branch daily as needed for Cough. benzonatate 0 Yes [id number] 100mg Take 1 [facility] 100 mg 4-29 capsule by ity of capsule 00:00: mouth 3 (three) Medical times Branch daily as needed for Cough. benzonatate Yes [id number] 100mg Take 1 [facility] 100 mg 4-29 capsule by ity of capsule 00:00: mouth 3 (three) Medical times Branch daily as needed for Cough. benzonatate Yes [id number] 100mg Take 1 [facility] 100 mg 4-29 capsule by ity of capsule 00:00: mouth 3 (three) Medical times Branch daily as needed for Cough. benzonatate 0 Yes [id number] 100mg Take 1 [facility] 100 mg 4-29 capsule by ity of capsule 00:00: mouth 3 (three) Medical times Branch daily as needed for Cough. benzonatate Yes [id number] 100mg Take 1 [facility] 100 mg 4-29 capsule by ity of capsule 00:00: mouth 3 (three) Medical times Branch daily as needed for Cough. benzonatate Yes [id number] 100mg Take 1 [facility] 100 mg 4-29 capsule by ity of capsule 00:00: mouth 3 (three) Medical times Branch daily as needed for Cough. benzonatate Yes [id number] 100mg Take 1 [facility] 100 mg 4-29 capsule by ity of capsule 00:00: mouth 3 (three) Medical times Branch daily as needed for Cough. benzonatate Yes [id number] 100mg Take 1 [facility] 100 mg 4-29 capsule by ity of capsule 00:00: mouth 3 (three) Medical times Branch daily as needed for Cough. benzonatate Yes [id number] 100mg Take 1 [facility] 100 mg 4-29 capsule by ity of capsule 00:00: mouth 3 (three) Medical times Branch daily as needed for Cough. benzonatate Yes [id number] 100mg Take 1 [facility] 100 mg 4-29 capsule by ity of capsule 00:00: mouth (three) Medical times Branch daily as needed for Cough. benzonatate Yes [id number] 100mg Take 1 [facility] 100 mg 4-29 capsule by ity of capsule 00:00: mouth 3 (three) Medical times Branch daily as needed for Cough. benzonatate Yes [id number] 100mg Take 1 [facility] 100 mg 4-29 capsule by ity of capsule 00:00: mouth 3 (three) Medical times Branch daily as needed for Cough. benzonatate Yes [id number] 100mg Take 1 [facility] 100 mg 4-29 capsule by ity of capsule 00:00: mouth 3 (three) Medical times Branch daily as needed for Cough. benzonatate Yes [id number] 100mg Take 1 [facility] 100 mg 4-29 capsule by ity of capsule 00:00: mouth 3 (three) Medical times Branch daily as needed for Cough. albuterol 2020- No [id number] 2{puff} Inhale 2 [facility] 90 4- 06-09 Puffs ity of mcg/actuati 00:00: 00:00 every 4 [place] on inhaler 00 :00 (four) Medical hours as Branch needed for Wheezing or Shortness of Breath. sulfamethox 0 Yes [id number] 1{tbl} Take 1 [facility] azole-trime 2-04 tablet by ity of thoprim 00:00: mouth [place] 800-160 mg 00 every 12 Medic al per tablet (twelve) Branc h hours. sulfamethox 2019-0 Yes [id number] 1{tbl} Take 1 [facility] azole-trime 2-04 tablet by ity of thoprim 00:00: mouth [place] 800-160 mg 00 every 12 Medic al per tablet (twelve) Branc h hours. sulfamethox 2019-0 Yes [id number] 1{tbl} Take 1 [facility] azole-trime 2-04 tablet by ity of thoprim 00:00: mouth [place] 800-160 mg 00 every 12 Medic al per tablet (twelve) Branc h hours. sulfamethox 2019-0 Yes [id number] 1{tbl} Take 1 [facility] azole-trime 2-04 tablet by ity of thoprim 00:00: mouth [place] 800-160 mg 00 every 12 Medic al per tablet (twelve) Branc h hours. sulfamethox 2019-0 Yes [id number] 1{tbl} Take 1 [facility] azole-trime 2-04 tablet by ity of thoprim 00:00: mouth [place] 800-160 mg 00 every 12 Medic al per tablet (twelve) Branc h hours. sulfamethox 2019-0 Yes [id number] 1{tbl} Take 1 [facility] azole-trime 2-04 tablet by ity of thoprim 00:00: mouth [place] 800-160 mg 00 every 12 Medic al per tablet (twelve) Branc h hours. sulfamethox 2019-0 Yes [id number] 1{tbl} Take 1 [facility] azole-trime 2-04 tablet by ity of thoprim 00:00: mouth [place] 800-160 mg 00 every 12 Medic al per tablet (twelve) Branc h hours. sulfamethox 2019-0 Yes [id number] 1{tbl} Take 1 [facility] azole-trime 2-04 tablet by ity of thoprim 00:00: mouth [place] 800-160 mg 00 every 12 Medic al per tablet (twelve) Branc h hours. sulfamethox 2019-0 Yes [id number] 1{tbl} Take 1 [facility] azole-trime 2-04 tablet by ity of thoprim 00:00: mouth [place] 800-160 mg 00 every 12 Medic al per tablet (twelve) Branc h hours. sulfamethox 2019-0 Yes [id number] 1{tbl} Take 1 [facility] azole-trime 2-04 tablet by ity of thoprim 00:00: mouth [place] 800-160 mg 00 every 12 Medic al per tablet (twelve) Branc h hours. sulfamethox 2019-0 Yes [id number] 1{tbl} Take 1 [facility] azole-trime 2-04 tablet by ity of thoprim 00:00: mouth [place] 800-160 mg 00 every 12 Medic al per tablet (twelve) Branc h hours. sulfamethox 2019-0 Yes [id number] 1{tbl} Take 1 [facility] azole-trime 2-04 tablet by ity of thoprim 00:00: mouth [place] 800-160 mg 00 every 12 Medic al per tablet (twelve) Branc h hours. sulfamethox 2019-0 Yes [id number] 1{tbl} Take 1 [facility] azole-trime 2-04 tablet by ity of thoprim 00:00: mouth [place] 800-160 mg 00 every 12 Medic al per tablet (twelve) Branc h hours. sulfamethox 2019-0 Yes [id number] 1{tbl} Take 1 [facility] azole-trime 2-04 tablet by ity of thoprim 00:00: mouth [place] 800-160 mg 00 every 12 Medic al per tablet (twelve) Branc h hours. sulfamethox 2019-0 Yes [id number] 1{tbl} Take 1 [facility] azole-trime 2-04 tablet by ity of thoprim 00:00: mouth [place] 800-160 mg 00 every 12 Medic al per tablet (twelve) Branc h hours. sulfamethox 2019-0 Yes [id number] 1{tbl} Take 1 [facility] azole-trime 2-04 tablet by ity of thoprim 00:00: mouth [place] 800-160 mg 00 every 12 Medic al per tablet (twelve) Branc h hours. sulfamethox 2019-0 Yes [id number] 1{tbl} Take 1 Univers azole-trime 2-04 tablet by ity of thoprim 00:00: mouth [place] 800-160 mg 00 every 12 Medic al per tablet (twelve) Branc h hours. sulfamethox 2019-0 Yes [id number] 1{tbl} Take 1 Univers azole-trime 2-04 tablet by ity of thoprim 00:00: mouth [place] 800-160 mg 00 every 12 Medic al per tablet (twelve) Branc h hours. sulfamethox 2019-0 Yes [id number] 1{tbl} Take 1 Univers azole-trime 2-04 tablet by ity of thoprim 00:00: mouth [place] 800-160 mg 00 every 12 Medic al per tablet (twelve) Branc h hours. sulfamethox 2019-0 Yes [id number] 1{tbl} Take 1 Univers azole-trime 2-04 tablet by ity of thoprim 00:00: mouth [place] 800-160 mg 00 every 12 Medic al per tablet (twelve) Branc h hours. sulfamethox 2019-0 Yes [id number] 1{tbl} Take 1 Univers azole-trime 2-04 tablet by ity of thoprim 00:00: mouth [place] 800-160 mg 00 every 12 Medic al per tablet (twelve) Branc h hours. sulfamethox 2019-0 Yes [id number] 1{tbl} Take 1 Univers azole-trime 2-04 tablet by ity of thoprim 00:00: mouth [place] 800-160 mg 00 every 12 Medic al per tablet (twelve) Branc h hours. sulfamethox 2019-0 Yes [id number] 1{tbl} Take 1 Univers azole-trime 2-04 tablet [...] vers ORAL 7-23 mouth. ity of 18:03: [address] ALPRAZOLAM 2018-0 Yes Take by Uni vers ORAL 7-23 mouth. ity of 18:03: [address] fluticasone 2016-0 Yes 2{spray Use 2 [...] mouth ity of mg capsule 00:00: at [place] 00 bedtime. Medical Branch fluticasone 2014-02 Yes 1{spray Use 1 Un inocente (FLONASE) 1-13 } [place] in ity of 50 00:00: each [place] mcg/actuati 00 nostril Medic al on nasal daily. Branch spray Cetirizine 2014-02 Yes 10mg Take 1 Cap U nivers (ZYRTEC) 10 1-13 by mouth ity of mg capsule 00:00: at [place] 00 bedtime. Medical Branch Cetirizine 2014-02 Yes 10mg Take 1 Cap U nivers (ZYRTEC) 10 1-13 by mouth ity of mg capsule 00:00: at [place] 00 bedtime. Medical Branch Cetirizine 2014-02 Yes 10mg Take 1 Cap U nivers (ZYRTEC) 10 1-13 by mouth ity of mg capsule 00:00: at [place] [address] bedtime. Medical Branch Cetirizine 2014-02 Yes 10mg Take 1 Cap U nivers (ZYRTEC) 10 1-13 by mouth ity of mg capsule 00:00: at [place] 00 bedtime. Medical Branch Cetirizine 2014-02 Yes 10mg Take 1 Cap U nivers (ZYRTEC) 10 1-13 by mouth ity of mg capsule 00:00: at [place] 00 bedtime. Medical Branch Cetirizine 2014-02 Yes 10mg Take 1 Cap U nivers (ZYRTEC) 10 1-13 by mouth ity of mg capsule 00:00: at [place] [address] bedtime. Medical Branch Cetirizine 2014-02 Yes 10mg Take 1 Cap U nivers (ZYRTEC) 10 1-13 by mouth ity of mg capsule 00:00: at [place] [address] bedtime. Medical Branch Cetirizine 2014- Yes 10mg Take 1 Cap U nivers (ZYRTEC) 10 1-13 by mouth ity of mg capsule 00:00: at [place] 00 bedtime. Medical Branch Cetirizine 2014-02 Yes 10mg Take 1 Cap U nivers (ZYRTEC) 10 1-13 by mouth ity of mg capsule 00:00: at [place] [address] bedtime. Medical Branch Cetirizine 2014-02 Yes 10mg Take 1 Cap U nivers (ZYRTEC) 10 1-13 by mouth ity of mg capsule 00:00: at [place] 00 bedtime. Medical Branch Cetirizine 2014-02 Yes 10mg Take 1 Cap U nivers (ZYRTEC) 10 1-13 by mouth ity of mg capsule 00:00: at [place] [address] bedtime. Medical Branch Cetirizine 2014-02 Yes 10mg Take 1 Cap U nivers (ZYRTEC) 10 1-13 by mouth ity of mg capsule 00:00: at [place] [address] bedtime. Medical Branch Cetirizine 2014-02 Yes 10mg Take 1 Cap U nivers (ZYRTEC) 10 1-13 by mouth ity of mg capsule 00:00: at [place] [address] bedtime. Medical Branch Cetirizine 2014-02 Yes 10mg Take 1 Cap U nivers (ZYRTEC) 10 1-13 by mouth ity of mg capsule 00:00: at [place] [address] bedtime. Medical Branch Cetirizine 2014-02 Yes 10mg Take 1 Cap U nivers (ZYRTEC) 10 1-13 by mouth ity of mg capsule 00:00: at [place] [address] bedtime. Medical Branch Cetirizine 2014-02 Yes 10mg Take 1 Cap U nivers (ZYRTEC) 10 1-13 by mouth ity of mg capsule 00:00: at [place] 00 bedtime. Medical Branch Cetirizine 2014-02 Yes 10mg Take 1 Cap U nivers (ZYRTEC) 10 1-13 by mouth ity of mg capsule 00:00: at [place] [address] bedtime. Medical Branch Cetirizine 2014-02 Yes 10mg Take 1 Cap U nivers (ZYRTEC) 10 1-13 by mouth ity of mg capsule 00:00: at [place] [address] bedtime. Medical Branch Cetirizine 2014-02 Yes 10mg Take 1 Cap U nivers (ZYRTEC) 10 1-13 by mouth ity of mg capsule 00:00: at [place] [address] bedtime. Medical Branch Cetirizine 2014-02 Yes 10mg Take 1 Cap U nivers (ZYRTEC) 10 1-13 by mouth ity of mg capsule 00:00: at [place] [address] bedtime. Medical Branch Cetirizine 2014-02 Yes 10mg Take 1 Cap U nivers (ZYRTEC) 10 1-13 by mouth ity of mg capsule 00:00: at [place] [address] bedtime. Medical Branch Cetirizine 2014-02 Yes 10mg Take 1 Cap U nivers (ZYRTEC) 10 1-13 by mouth ity of mg capsule 00:00: at [place] [address] bedtime. Medical Branch fluticasone 2014-02- No 1{spray Use 1 U nivers (FLONASE) 13 07-20 } [place] in ity o f 50 00:00: 00:00 each [place] mcg/actuati 00 :00 nostril Medic al on nasal daily. Branch spray CLONIDINE 2011-02 Yes Take by [facility] ers HCL 2-10 mouth. ity of (CLONIDINE 20:37: [place] ORAL) Medical Branch CLONIDINE 2011-02 Yes Take by [facility] ers HCL 2-10 mouth. ity of (CLONIDINE [...] 10 mg 00:00: daily. [place] tablet 00 [facility] Branch efavirenz 2011-02 Yes 600mg Take 1 Tab U nivers (SUSTIVA) 2-10 by mouth ity of 600 mg 00:00: daily. [place] tablet 00 [facility] Branch amLODIPine 2011-02 Yes 10mg Take 1 Tab U nivers (NORVASC) 2-10 by mouth ity of 10 mg 00:00: daily. [place] tablet 00 [facility] Branch efavirenz 2011-02 Yes 600mg Take 1 Tab U nivers (SUSTIVA) 2-10 by mouth ity of 600 mg 00:00: daily. [place] tablet 00 [facility] amLODIPine 2011-02 Yes 10mg Take 1 Tab U nivers (NORVASC) 2-10 by mouth ity of 10 mg 00:00: daily. [place] tablet 00 [facility] efavirenz 2011-02 Yes 600mg Take 1 Tab U nivers (SUSTIVA) 2-10 by mouth ity of 600 mg 00:00: daily. [place] tablet 00 [facility] amLODIPine 2011-02 Yes 10mg Take 1 Tab U nivers (NORVASC) 2-10 by mouth ity of 10 mg 00:00: daily. [place] tablet 00 [facility] efavirenz 2011-02 Yes 600mg Take 1 Tab U nivers (SUSTIVA) 2-10 by mouth ity of 600 mg 00:00: daily. [place] tablet 00 [facility] amLODIPine 2011-02 Yes 10mg Take 1 Tab U nivers (NORVASC) 2-10 by mouth ity of 10 mg 00:00: daily. [place] tablet 00 [facility] efavirenz 2011-02 Yes 600mg Take 1 Tab U nivers (SUSTIVA) 2-10 by mouth ity of 600 mg 00:00: daily. [place] tablet 00 [facility] amLODIPine 2011-02 Yes 10mg Take 1 Tab U nivers (NORVASC) 2-10 by mouth ity of 10 mg 00:00: daily. [place] tablet 00 [facility] Branch efavirenz 2011-02 Yes 600mg Take 1 Tab U nivers (SUSTIVA) 2-10 by mouth ity of 600 mg 00:00: daily. [place] tablet 00 [facility] amLODIPine 2011-02 Yes 10mg Take 1 Tab U nivers (NORVASC) 2-10 by mouth ity of 10 mg 00:00: daily. [place] tablet 00 [facility] efavirenz 2011-02 Yes 600mg Take 1 Tab U nivers (SUSTIVA) 2-10 by mouth ity of 600 mg 00:00: daily. [place] tablet 00 [facility] amLODIPine 2011-02 Yes 10mg Take 1 Tab U nivers (NORVASC) 2-10 by mouth ity of 10 mg 00:00: daily. [place] tablet 00 [facility] efavirenz 2011-02 Yes 600mg Take 1 Tab U nivers (SUSTIVA) 2-10 by mouth ity of 600 mg 00:00: daily. [place] tablet 00 [facility] amLODIPine 2011-02 Yes 10mg Take 1 Tab U nivers (NORVASC) 2-10 by mouth ity of 10 mg 00:00: daily. [place] tablet 00 [facility] efavirenz 2011-02 Yes 600mg Take 1 Tab U nivers (SUSTIVA) 2-10 by mouth ity of 600 mg 00:00: daily. [place] tablet 00 [facility] amLODIPine 2011-02 Yes 10mg Take 1 Tab U nivers (NORVASC) 2-10 by mouth ity of 10 mg 00:00: daily. [place] tablet 00 [facility] efavirenz 2011-02 Yes 600mg Take 1 Tab U nivers (SUSTIVA) 2-10 by mouth ity of 600 mg 00:00: daily. [place] tablet 00 [facility] amLODIPine 2011-02 Yes 10mg Take 1 Tab U nivers (NORVASC) 2-10 by mouth ity of 10 mg 00:00: daily. [place] tablet 00 [facility] efavirenz 2011-02 Yes 600mg Take 1 Tab U nivers (SUSTIVA) 2-10 by mouth ity of 600 mg 00:00: daily. [place] tablet 00 [facility] efavirenz 2011-02 Yes 600mg Take 1 Tab U nivers (SUSTIVA) 2-10 by mouth ity of 600 mg 00:00: daily. [place] tablet 00 [facility] efavirenz 2011-02 Yes 600mg Take 1 Tab U nivers (SUSTIVA) 2-10 by mouth ity of 600 mg 00:00: daily. [place] tablet 00 [facility] efavirenz 2011-02 Yes 600mg Take 1 Tab U nivers (SUSTIVA) 2-10 by mouth ity of 600 mg 00:00: daily. [place] tablet 00 [facility] efavirenz 2011-02 Yes 600mg Take 1 Tab U nivers (SUSTIVA) 2-10 by mouth ity of 600 mg 00:00: daily. [place] tablet 00 [facility] efavirenz 2011-02 Yes 600mg Take 1 Tab U nivers (SUSTIVA) 2-10 by mouth ity of 600 mg 00:00: daily. [place] tablet 00 [facility] efavirenz 2011-02 Yes 600mg Take 1 Tab U nivers (SUSTIVA) 2-10 by mouth ity of 600 mg 00:00: daily. [place] tablet 00 [facility] efavirenz 2011-02 Yes 600mg Take 1 Tab U nivers (SUSTIVA) 2-10 by mouth ity of 600 mg 00:00: daily. [place] tablet 00 [facility] efavirenz 2011-02 Yes 600mg Take 1 Tab U nivers (SUSTIVA) 2-10 by mouth ity of 600 mg 00:00: daily. [place] tablet 00 [facility] efavirenz 2011-02 Yes 600mg Take 1 Tab U nivers (SUSTIVA) 2-10 by mouth ity of 600 mg 00:00: daily. [place] tablet 00 [facility] amLODIPine 2011-02- No 10mg Take 1 Tab Univers (NORVASC) 2-10 - by mouth ity o f 10 mg 00:00: 00:00 daily. [place] tablet 00 :00 [facility] amLODIPine 2011-02- No 10mg Take 1 Tab Univers (NORVASC) 2-10 - by mouth ity o f 10 mg 00:00: 00:00 daily. [place] tablet 00 :00 [facility] amLODIPine 2011-02- No 10mg Take 1 Tab Univers (NORVASC) 2-10 - by mouth ity o f 10 mg 00:00: 00:00 daily. [place] tablet 00 :00 [facility] Immunizations Ordered Filled Immunization Date Status Comments [facility] e Immunization Name Name TDAP 2014-08-19 Completed University of 00:00:00 [facility] TDAP 2014-08-19 Completed University of 00:00:00 [facility] TDAP 2014-08-19 Completed University of 00:00:00 [facility] TDAP 2014-08-19 Completed University of 00:00:00 [facility] TDAP 2014-08-19 Completed University of 00:00:00 [facility] TDAP 2014-08-19 Completed University of 00:00:00 [facility] TDAP 2014-08-19 Completed University of 00:00:00 [facility] TDAP 2014-08-19 Completed University of 00:00:00 [place] [facility] TDAP 2014-08-19 Completed University of 00:00:00 [place] [facility] TDAP 2014-08-19 Completed University of 00:00:00 [place] [facility] TDAP 2014-08-19 Completed University of 00:00:00 [place] [facility] TDAP 2014-08-19 Completed University of 00:00:00 [place] [facility] TDAP 2014-08-19 Completed University of 00:00:00 [place] [facility] TDAP 2014-08-19 Completed University of 00:00:00 [place] [facility] TDAP 2014-08-19 Completed University of 00:00:00 [place] [facility] TDAP 2014-08-19 Completed University of 00:00:00 [place] [facility] TDAP 2014-08-19 Completed University of 00:00:00 [place] [facility] TDAP 2014-08-19 Completed University of 00:00:00 [place] [facility] TDAP 2014-08-19 Completed University of 00:00:00 [place] [facility] TDAP 2014-08-19 Completed University of 00:00:00 [place] [facility] TDAP 2014-08-19 Completed University of 00:00:00 [place] [facility] TDAP 2014-08-19 Completed University of 00:00:00 [place] [facility] TDAP 2014-08-19 Completed University of 00:00:00 [facility] Influenza Virus 2012-01-21 Completed Universit y of Vaccine 00:00:00 [facility] Influenza Virus 2012-01-21 Completed Universit y of Vaccine 00:00:00 [facility] Influenza Virus 2012-01-21 Completed Universit y of Vaccine 00:00:00 [facility] Influenza Virus 2012-01-21 Completed Universit y of Vaccine 00:00:00 [facility] Influenza Virus 2012-01-21 Completed Universit y of Vaccine 00:00:00 [facility] Branch Influenza Virus 2012-01-21 Completed Universit y of Vaccine 00:00:00 [facility] Influenza Virus 2012-01-21 Completed Universit y of Vaccine 00:00:00 [facility] Influenza Virus 2012-01-21 Completed Universit y of Vaccine 00:00:00 [facility] Influenza Virus 2012-01-21 Completed Universit y of Vaccine 00:00:00 [facility] Influenza Virus 2012-01-21 Completed Universit y of Vaccine 00:00:00 [facility] Influenza Virus 2012-01-21 Completed Universit y of Vaccine 00:00:00 [facility] Influenza Virus 2012-01-21 Completed Universit y of Vaccine 00:00:00 [facility] Influenza Virus 2012-01-21 Completed Universit y of Vaccine 00:00:00 [facility] Influenza Virus 2012-01-21 Completed Universit y of Vaccine 00:00:00 [facility] Influenza Virus 2012-01-21 Completed Universit y of Vaccine 00:00:00 [facility] Influenza Virus 2012-01-21 Completed Universit y of Vaccine 00:00:00 [facility] Influenza Virus 2012-01-21 Completed Universit y of Vaccine 00:00:00 [facility] Influenza Virus 2012-01-21 Completed Universit y of Vaccine 00:00:00 [facility] Influenza Virus 2012-01-21 Completed Universit y of Vaccine 00:00:00 [facility] Influenza Virus 2012-01-21 Completed Universit y of Vaccine 00:00:00 [facility] Influenza Virus 2012-01-21 Completed Universit y of Vaccine 00:00:00 [facility] Influenza Virus 2012-01-21 Completed Universit y of Vaccine 00:00:00 [facility] Influenza Virus 2012-01-21 Completed Universit y of Vaccine 00:00:00 [facility] Vital Signs Vital Name Observation Time Observation Value Comments Source Systolic blood 2020-10-04 16:43:00 138 mm[Hg] Univer sity of pressure [facility] Diastolic blood 2020-10-04 16:43:00 89 mm[Hg] Unive rsity of pressure [facility] Heart rate 2020-10-04 16:43:00 93 /min Universi [facility] [place] [facility] Body temperature 2020-10-04 16:43:00 36.67 [place] [facility] Res[facility] rate 2020-10-04 16:43:00 18 /min [facility] Body weight 2020-10-04 16:43:00 60.328 kg Universi ty [facility] BMI 2020-10-04 16:43:00 23.56 [facility]m2 [facility] [place] [facility] Oxygen saturation in 2020-10-04 16:43:00 97 /min [facility] Arterial blood by [facility] Pulse oximetry Branch Systolic blood 2020-08-25 14:27:00 153 mm[Hg] Univer sity of pressure [place] [facility] Diastolic blood 2020-08-25 14:27:00 99 mm[Hg] Unive rsity of pressure [place] [facility] Heart rate 2020-08-25 14:27:00 66 /min Universi ty of [place] [facility] Body temperature 2020-08-25 14:27:00 37.06 Roma Univ ersity of [place] [facility] Respiratory rate 2020-08-25 14:27:00 18 /min Univ ersity of [place] [facility] Body weight 2020-08-25 14:27:00 60.328 kg Universi ty of [place] [facility] BMI 2020-08-25 14:27:00 23.56 kg/m2 Universi ty of [place] [facility] Oxygen saturation in 2020-08-25 14:27:00 98 /min University of Arterial blood by [facility] donald Pulse oximetry Branch Systolic blood 2020-08-24 19:40:00 163 mm[Hg] Univer sity of pressure [place] [facility] Diastolic blood 2020-08-24 19:40:00 94 mm[Hg] Unive rsity of pressure [place] [facility] Heart rate 2020-08-24 19:40:00 68 /min Universi ty of [place] [facility] Body temperature 2020-08-24 19:40:00 36.83 Roma Univ ersity of [place] [facility] Respiratory rate 2020-08-24 19:40:00 18 /min Univ ersity of [place] [facility] Body weight 2020-08-24 19:40:00 60.328 kg Universi ty of [place] [facility] BMI 2020-08-24 19:40:00 23.56 kg/m2 Universi ty of [place] [facility] Oxygen saturation in 2020-08-24 19:40:00 100 /min University of Arterial blood by [facility] donald Pulse oximetry Branch Systolic blood 2020-07-26 19:46:00 147 mm[Hg] Univer sity of pressure [place] [facility] Diastolic blood 2020-07-26 19:46:00 89 mm[Hg] Unive rsity of pressure [place] [facility] Heart rate 2020-07-26 19:42:00 82 /min Universi ty of [place] [facility] Body height 2020-07-26 19:42:00 160 cm Universi ty of [place] [facility] Body weight 2020-07-26 19:42:00 60.601 kg Universi ty of [place] [facility] BMI 2020-07-26 19:42:00 23.67 kg/m2 Universi ty of [place] [facility] Oxygen saturation in 2020-07-26 19:42:00 91 /min University of Arterial blood by [facility] Pulse oximetry Branch Systolic blood 2020-07-20 20:13:00 152 mm[Hg] Univer sity of pressure [place] [facility] Diastolic blood 2020-07-20 20:13:00 99 mm[Hg] Unive rsity of pressure [place] [facility] Heart rate 2020-07-20 20:13:00 67 /min Universi ty of [place] [facility] Respiratory rate 2020-07-20 20:13:00 14 /min Univ ersity of [place] [facility] Oxygen saturation in 2020-07-20 20:13:00 100 /min University of Arterial blood by [facility] Pulse oximetry Branch Body temperature 2020-07-20 18:00:00 36.67 Roma Univ ersity of [place] [facility] Body weight 2020-07-20 15:23:00 77.111 kg Universi ty of [place] [facility] BMI 2020-07-20 15:23:00 30.11 kg/m2 Universi ty of [place] [facility] Systolic blood 2020-07-01 18:36:00 138 mm[Hg] Univer sity of pressure [place] [facility] Diastolic blood 2020-07-01 18:36:00 82 mm[Hg] Unive rsity of pressure [place] [facility] Heart rate 2020-07-01 18:36:00 68 /min Universi ty of [place] [facility] Body temperature 2020-07-01 18:36:00 36 Roma Univ ersity of [place] [facility] Respiratory rate 2020-07-01 18:36:00 18 /min Univ ersity of [place] [facility] Body weight 2020-07-01 18:36:00 77.111 kg Universi ty of [place] [facility] BMI 2020-07-01 18:36:00 30.11 kg/m2 Universi ty of [place] [facility] Oxygen saturation in 2020-07-01 18:36:00 96 /min University of Arterial blood by [facility] Pulse oximetry Branch Systolic blood 2020-07-01 18:36:00 138 mm[Hg] Univer sity of pressure [place] [facility] Diastolic blood 2020-07-01 18:36:00 82 mm[Hg] [facility] pressure [facility] Heart rate 2020-07-01 18:36:00 68 /min [facility] Body temperature 2020-07-01 18:36:00 36 Roma [facility] Respiratory rate 2020-07-01 18:36:00 18 /min [facility] Body weight 2020-07-01 18:36:00 77.111 kg [facility] BMI 2020-07-01 18:36:00 30.11 kg/m2 [facility] Oxygen saturation in 2020-07-01 18:36:00 96 /min [facility] Arterial blood by [facility] Pulse oximetry Branch Procedures Procedure Date / Time Performing Clinician Source Performed CONSENT/REFUSAL FOR 2020-10-04 16:23:52 Doctor Joellen [facility] DIAGNOSIS AND TREATMENT [facility] CONSENT/REFUSAL FOR 2020-08-25 14:16:18 Doctor Ann Mariesammy [facility] DIAGNOSIS AND TREATMENT [facility] CONSENT/REFUSAL FOR 2020-08-24 19:18:51 Doctor Ann Mariesammy [facility] DIAGNOSIS AND TREATMENT [facility] MEDICATION CORRESPONDENCE 2020-07-28 05:01:00 Doctor Joellen, [facility] [place] ELECTROCARDIOGRAM, 2020-07-26 19:51:40 Bonny Morris [facility] COMPLETE [facility] URINALYSIS 2020-07-20 19:32:00 Dawn Blanco [facility] COVID-19 (ID NOW RAPID 2020-07-20 18:02:00 Dawn Blanco [facility] TESTING) Medical Branch CT ABDOMEN PELVIS WO 2020-07-20 16:09:13 Dawn Blanco [facility] CONTRAST [facility] Branch BASIC METABOLIC PANEL 2020-07-20 15:54:00 Dawn Blanco [facility] (NA, K, CL, CO2, GLUCOSE, Medica l Branch BUN, CREATININE, CA) CBC WITH DIFF 2020-07-20 15:54:00 Dawn Blanco [facility] RAPID STREP SCREEN FOR 2020-07-20 15:51:00 Dawn Blanco [facility] GROUP A Medical Branch CONSENT/REFUSAL FOR 2020-07-20 15:15:44 [facility] DIAGNOSIS AND TREATMENT [facility] NOTICE OF PRIVACY 2020-07-01 18:27:55 Doctor Unasssammy [facility] PRACTICES [facility] CONSENT/REFUSAL FOR 2020-07-01 18:27:21 Doctor [facility] DIAGNOSIS AND TREATMENT [facility] Encounters Start End Encounter Admission Attending Care Care Encounter Source Date/Time Date/Time Type Type Clinicians Facility Department ID 2020-12-12 Emergency [facility] [id number] Univers 17:42:22 ity [facility] 2020-12-12 Emergency [facility] [id number] Univers 08:21:31 ity of [facility] 2020-12-12 Emergency [facility] [id number] Univers 08:11:39 ity [facility] 2020-11-03 2020-11-03 Outpatient Robert MORRIS [facility] [id number] [facility] 00:00:00 00:00:00 [facility] [id number] [facility] 2020-10-04 2020-10-04 [email or web address] [id number] Univers 11:44:00 12:54:00 Margaret Gonzalez [id number] [id number] [id number] [place] [id number] [place] 2020-09-29 2020-09-29 [email or web address] [id number] Univers 00:00:00 00:00:00 Sendiva Gonzalez [id number] ity of [place] [id number] [facility] [id number] [address] 2020-09-22 2020-09-22 Outpatient Robert MORRIS [facility] [id number] Univers 14:30:00 14:30:00 SENDIL [id number] [facility] 2020-09-22 2020-09-22 Out[facility] [id number] Univers 14:30:00 14:30:00 [facility] 2020-08-25 2020-08-25 Outpatient Dean_R DMG DMG [id number] [facility] 11:32:00 11:32:00 [id number] Medica l Group 2020-08-25 2020-08-25 Emergency [email or web address] [id number] Univers 09:28:00 10:21:00 Margaret Gonzalez [id number] [id number] [id number] [address] 2020-08-24 2020-08-24 Emergency Earl, Terri [facility] [id number] Univers 14:43:00 15:59:00 Suzette Gonzalez [id number] i [id number] [id number] [address] 2020-08-24 2020-08-24 Telephone [email or web address] [id number] Univers 00:00:00 00:00:00 Sendil Tabatha Gonzalez [id number] [id number] Professio [phone] [address] 2020-08-12 2020-08-12 Outpatient [facility] [id number] Univers 15:00:00 15:00:00 SENDIL [id number] ity [facility] 2020-08-12 2020-08-12 Outpatient R [facility] [id number] Univers 15:00:00 15:00:00 SENDIL [facility] 2020-08-12 2020-08-12 Telephone [email or web address] [id number] Univers 00:00:00 00:00:00 Sendil Tabatha Gonzalez [id number] [place] [phone] Ca dical nal 059 [facility] 2020-08-04 2020-08-04 Outpatient Adams_R DMG DMG [id number] Devoted 01:58:00 01:58:00 0624 [facility] l [facility] 2020-07-28 2020-07-28 Telephone [facility] [id number] Univers 00:00:00 00:00:00 Bonny Gonzalez [id number] [place] [phone] Ca dicne nal 9 [facility] 2020-07-28 2020-07-28 Orders Doctor KAVITA [id number] Univers 00:00:00 00:00:00 Only Unassigned, YEVGENIY [id number] ity of [place] [facility] 4.2.7.2.686 Ian as [phone] [address] 2020-07-27 2020-07-27 Telephone [facility] [id number] Univers 00:00:00 00:00:00 Bonny Gonzalez [id number] [place] [phone] Ca dicne nal 9 [facility] 2020-07-27 2020-07-27 [facility] [id number] Univers 00:00:00 00:00:00 Bonny Gonzalez [id number] [place] [phone] Ca dical nal 9 [facility] 2020-07-26 2020-07-26 Office [facility] [id number] Univers 14:25:36 15:12:16 Visit Bonny Gonzalez [id number] [place] Profess[place] [phone] Ca dical nal [address] [place] [address] 2020-07-26 2020-07-26 Outpatient R MORRIS, [facility] [id number] Univers 14:30:00 14:30:00 [facility]-07-20 2020-07-20 Emergency [email or web address] [id number] Univers 10:25:00 15:52:00 Dawn S [place] [id number] i ty of [place] 4.2.7.2.686 [facility] [phone] [address] 2020-07-20 2020-07-20 Emergency X [facility] ERT [id number] Univers 10:16:00 10:16:00 [facility] 2020-07-18 2020-07-18 Outpatient Tumelson_A DMG [facility] 4770 Devoted 01:42:00 01:42:00 0607 Medica l Group 2020-07-01 2020-07-01 Emergency [facility] [id number] Univers 13:47:00 16:34:00 Brooklyn Endy [place] 350.1.13.10 ity [facility] 4.2.7.2.686 [facility] [phone] [address] 2020-07-01 2020-07-01 Emergency [facility] 1.2.840.114 [id number] 13:47:00 16:34:00 Nadegeo F [place] [id number] [place] 4.2.7.2.686 [place] [phone] [facility] 2020-07-01 2020-07-01 Emergency X [facility] ERT [id number] Univers 13:27:00 13:27:00 [facility] Results Test Description Test Time Test Comments Results Result Comments Source URINALYSIS 2020-07-20 20:09:09 Test Item Value Reference Range Interpretation Comme nts APPEARANCE (test code = Clear Clear 9571677807) COLOR (test code = 3270225512) Yellow Yellow PH (test code = 7999841119) 4.8-8.0 SP GRAVITY (test code = 1.003-1.030 5421679379) GLU U QUAL (test code = Normal Normal 6119363927) BLOOD (test code = 5760628259) 3+ Negative A KETONES (test code = 0856520909) Negative Negative PROTEIN (test code = 2887-8) Negative Negative UROBILIN (test code = 3716203527) Normal Normal BILIRUBIN (test code = Negative Negative 5179555305) NITRITE (test code = 8385556229) Negative Negative LEUK DEAJ (test code = Negative Negative 9612822787) RBC/HPF (test code = 0097660967) See_Comment H [Automated message] The system which ge nerated this result transmit agustin reference range: 0 - 3 HP F. The reference range was not used to interpret th is result as normal/abnormal . WBC/HPF (test code = 2784843277) See_Comment [Automated message] The system which ge nerated this result transmit agustin reference range: 0 - 5 HP F. The reference range was not used to interpret th is result as normal/abnormal . BACTERIA (test code = 2255196281) Negative Negative SQ EPITH (test code = 6289489066) HPF Lab Interpretation (test code = Abnormal 23976-5) [facility]2020-07-20 18:57:18 Test Item Value Reference Range Interpretation Comments SARS-CoV-2 Rapid ID NOW Not Detected Not Detected (test code = 99195-9) GARRY (test code = GARRY) ID NOW COVID-19 Assay is an isothermal nucleic acid amplification test intended for the qualitative detection of nucleic acid from SARS-CoV-2 viral RNA in nasopharyngeal (AWNING SPREADER) specimens. It is used under Emergency Use [...] indicated. Lab Interpretation Normal (test code = 67099-4) [facility] [id number] 17:13:32 Test Item Value Reference Range Interpretation Comments Streptococcus pyogenes (group A) Negative Negative antigen (test code = 42188-1) Lab Interpretation (test code = Normal 79294-2) General acute hospital WITH [id number] 17:08:43 Test Item Value Reference Range Interpretation [...] RDW-SD (test code = 46.6 fL 39.0-49.9 43661-0) RDW-CV (test code = 12.5 % 12.0-15.5 788-0) PLT (test code = See_Comment [Automated 777-3) message] The sy stem which generated this result transmitted reference range : 166 - 358 10*3/ ?L. The reference r roman was not used to interpret this result as normal/abnormal . MPV (test code = 10.0 fL 9.5-12.9 48748-3) NRBC/100 WBC (test See_Comment [Automat ed code = 8290963563) message] The system which generated this result transmitted reference range : 0.0 - 10.0 /100 WBCs. The refer ence range was not u sed to interpret th is result as normal/abnormal . NRBC x10^3 (test code <0.01 See_Comment [Auto mated = 5188887556) message] The s ystem which generated this result transmitted reference range : 10*3/?L. The reference range was not used to interpret this result as normal/abnormal . GRAN MAT (NEUT) % 26.5 % (test code = 770-8) IMM GRAN % (test code 0.00 % = 5620627481) LYMPH % (test code = 57.1 % 736-9) MONO % (test code = 12.6 % 5905-5) EOS % (test code = 3.3 % 713-8) BASO % (test code = 0.5 % 706-2) GRAN MAT x10^3(ANC) 0.48 10*3/uL 1.88-7.09 L (test code = 9658095758) IMM GRAN x10^3 (test <0.03 0.00-0.06 code = 4240788717) LYMPH x10^3 (test code 1.04 10*3/uL 1.32-3.29 L = 731-0) MONO x10^3 (test code 0.23 10*3/uL 0.33-0.92 L = 742-7) EOS x10^3 (test code = 0.06 10*3/uL 0.03-0.39 711-2) BASO x10^3 (test code <0.03 0.01-0.07 = 704-7) LG GRAN LYMPHS (test Moderate Rare A code = 6341332854) Lab Interpretation Abnormal (test code = 49559-9) [facility] METABOLIC PANEL (NA, K, CL, CO2, GLUCOSE, BUN, CREATININE, CA)2020-07-20 16:35:34 Test Item Value Reference Range Interpretation Comments NA (test code = 141 mmol/L 135-145 4154154541) K (test code = 3.8 mmol/L 3.5-5.0 1517104149) CL (test code = 110 mmol/L 98-108 H 6771897751) CO2 TOTAL (test code = 25 mmol/L 23-31 1202359968) AGAP (test code = 2-16 0036553231) BUN (test code = 15 mg/dL 7-23 7807059834) GLUCOSE (test code = 85 mg/dL 70-110 0506611762) CREATININE (test code = 0.92 mg/dL 0.50-1.04 2508482864) CALCIUM (test code = 10.0 mg/dL 8.6-10.6 2826264197) eGFR (test code = mL/min/1.73m2 8888974929) GARRY (test code = GARRY) Association of [...] tests). Lab Interpretation Abnormal (test code = 78597-8) [facility] [id number] 16:13:32CT Abdomen and Pelvis without contrast. CLINICAL [...] without any CT signs of acute cholecystitis.4. Constipation.[facility]"
--- NOTE | 2021-02-06 11:42 | RAD REPORT ---
EXAM DESCRIPTION: RAD - Chest Pa And Lat (2 Views) - 02/06/2021 11:22 am CLINICAL HISTORY: COUGH COMPARISON: February 2020 TECHNIQUE: Frontal and lateral views of the chest were obtained. FINDINGS: The lungs are clear of a peripheral mass or consolidation. Interstitial pattern is diffuse ly prominent. Interstitial edema and infiltrate can be masked in this setting of chronic interstitial lung disease. Hilar regions are similar to comparison. Trachea is midline. Heart size is normal an d central vasculature is within normal limits. No pleural effusion or pneumothorax seen. No acute b gael finding noted. No aortic abnormality. IMPRESSION: Chronic interstitial lung disease is evident without peripheral mass or consolidation id entifiable. Mild interstitial edema or interstitial infiltrate can be masked by the chronic chest pattern.
[2021-02-06 11:46] LABS: SARS-COV-2 RT PCR NEGATIVE (NEGATIVE)
--- NOTE | 2021-02-06 11:55 | EDPHYS ---
Physician Documentation [facility] Name: Charito Michael Age: 55 yrs Sex: Female : 1965 Arrival Date: 02/06/2021 Time: 10:04 Bed Waiting Private MD: BUZZ Physician Chi Sanchez HPI: 02/06 10:42 This 55 yrs old Black Female presents to ER via Ambulatory with complaints of Sore kb Throat. 10:42 The patient presents with sore throat. The patient describes throat pain as constant. kb Onset: The symptoms/episode began/occurred yesterday. Severity of symptoms: At their worst the symptoms were moderate, in the emergency department the symptoms are unchanged. Modifying factors: The symptoms are alleviated by nothing, the symptoms are aggravated by swallowing, Patient's oral intake status: good. Associated signs and symptoms: Pertinent positives: cough, Sore throat. The patient has not experienced similar symptoms in the past. The patient has not recently seen a physician. Pt reports sore throat and cough since yesterday . Historical: - Allergies: 10:36 NKA; ap3 - PMHx: 10:36 Back pain; CHF; Chronic pain; COPD; HIV; Hypertension; seasonal allergies; ap3 - Immunization history:: Client reports receiving the 1st dose of the Covid vaccine. - Social history:: Smoking status: Patient denies any tobacco usage or history of. ROS: 10:48 Constitutional: Negative for fever, chills, and weight loss. kb 10:48 ENT: Positive for sore throat. 10:48 Respiratory: Positive for cough, Negative for dyspnea on exertion, hemoptysis, orthopnea, pleurisy, shortness of breath, sputum production, wheezing. 10:48 All other systems are negative. Exam: 10:48 Constitutional: This is a well developed, well nourished patient who is awake, alert, kb and in no acute distress. Head/Face: Normocephalic, atraumatic. ENT: Moist Mucous membranes Cardiovascular: Regular rate and rhythm with a normal S1 and S2. No gallops, murmurs, or rubs. No pulse deficits. Respiratory: Respirations even and unlabored. No increased work of breathing. Talking in full sentences Skin: Warm, dry with normal turgor. Normal color. MS/ Extremity: Pulses equal, no cyanosis. Neurovascular intact. Full, normal range of motion. Neuro: Awake and alert, GCS 15, oriented to person, place, time, and situation. Moves all extremities. Normal gait. Psych: Awake, alert, with orientation to person, place and time. Behavior, mood, and affect are within normal limits. Vital Signs: 10:34 BP 172 / 89; Pulse 100; Resp 19; Temp 98.4; Pulse Ox 100% ; Weight 68.04 kg; Height 5 ap3 ft. 3 in. (160.02 cm); 10:34 Body Mass Index 26.57 (68.04 kg, 160.02 cm) ap3 MDM: 10:37 Patient medically screened. kb 10:42 Data reviewed: vital signs, nurses notes. Data interpreted: Pulse oximetry: on room air kb is 100 %. Interpretation: normal. 11:54 Counseling: I had a detailed discussion with the patient and/or guardian regarding: the kb historical points, exam findings, and any diagnostic results supporting the discharge/admit diagnosis, lab results, radiology results, the need for outpatient follow up, a family practitioner, to return to the emergency department if symptoms worsen or persist or if there are any questions or concerns that arise at home. 02/06 10:37 Order name: Strep; Complete Time: 11:34 kb 02/06 10:37 Order name: COVID-19/FLU A+B (Document "Date of Onset" if Symptomatic); Complete Time: kb 11:54 02/06 10:37 Order name: Chest Pa And Lat (2 Views) XRAY; Complete Time: 11:54 kb 02/06 11:34 Order name: Throat Culture EDMS Administered Medications: No medications were administered Disposition Summary: 02/06/21 11:54 Discharge Ordered Location: Home kb Condition: Stable kb Diagnosis - Acute upper respiratory infection, unspecified kb Followup: kb - With: Emergency Department - When: As needed - Reason: Worsening of condition Followup: kb - With: Private Physician - When: 2 - 3 days - Reason: Recheck today's complaints, Continuance of care, Re-evaluation by your physician Discharge Instructions: - Discharge Summary Sheet kb - Pharyngitis, Eqys-ns-Fpcl kb - Viral Respiratory Infection, Ukvc-Ew-Vdxt kb Forms: - Medication Reconciliation Form kb - Thank You Letter kb - Antibiotic Education kb - Prescription Opioid Use kb Addendum: 02/07/2021 12:51 Co-signature as Attending Physician, Chi Sanchez MD I agree with the assessment and c yadav plan of care. Signatures: Dispatcher [employer] Erin Gilbert, CAFETERIA TEAM LEADER-C CAFETERIA TEAM LEADER-Chi Mayfield MD MD cha Prokisch, Amanda RN RN ap3
--- NOTE | 2021-02-06 11:55 | ER ---
Nurse's Notes [facility] Name: Charito Michael Age: 55 yrs Sex: Female : 1965 Arrival Date: 02/06/2021 Time: 10:04 Bed Waiting Private MD: Diagnosis: Acute upper respiratory infection, unspecified Presentation: 02/06 10:34 Chief complaint: Patient states: her throat hurts, and pain associated with cough. ap3 Coronavirus screen: cough unrelated to allergies, sore throat, Client presents with at least one sign or symptom that may indicate coronavirus-19. Standard/surgical mask placed on the client. Ebola Screen: No symptoms or risks identified at this time. Initial Sepsis Screen: Does the patient meet any 2 criteria? No. Patient's initial sepsis screen is negative. Does the patient have a suspected source of infection? No. Patient's initial sepsis screen is negative. Risk Assessment: Do you want to hurt yourself or someone else? Patient reports no desire to harm self or others. Onset of symptoms was February 05, 2021. 10:34 Method Of Arrival: Ambulatory ap3 10:34 Acuity: GIULIANO 4 ap3 Triage Assessment: 10:37 General: Appears in no apparent distress. Behavior is calm, cooperative. Pain: ap3 Complains of pain in throat. EENT: Throat is pink. Neuro: Level of Consciousness is awake, alert, obeys commands, Oriented to person, place, time, situation, Appropriate for age. Respiratory: Airway is patent Respiratory effort is even, unlabored, Respiratory pattern is regular, symmetrical. : Reports burning with urination. Historical: - Allergies: 10:36 NKA; ap3 - PMHx: 10:36 Back pain; CHF; Chronic pain; COPD; HIV; Hypertension; seasonal allergies; ap3 - Immunization history:: Client reports receiving the 1st dose of the Covid vaccine. - Social history:: Smoking status: Patient denies any tobacco usage or history of. Screenin:38 Abuse screen: Denies threats or abuse. Nutritional screening: No deficits noted. ap3 Tuberculosis screening: No symptoms or risk factors identified. Fall Risk None identified. Assessment: 12:14 Respiratory: Airway is patent Breath sounds are clear. ap3 Vital Signs: 10:34 BP 172 / 89; Pulse 100; Resp 19; Temp 98.4; Pulse Ox 100% ; Weight 68.04 kg; Height 5 ap3 ft. 3 in. (160.02 cm); 10:34 Body Mass Index 26.57 (68.04 kg, 160.02 cm) ap3 ED Course: 10:04 Patient arrived in ED. mr 10:36 Triage completed. ap3 10:36 Erin Gastelum FNP-C is [facility]. kb 10:36 Chi Sanchez MD is Attending Physician. kb 10:38 Patient has correct armband on for positive identification. Pulse ox on. NIBP on. ap3 10:38 Arm band placed on left wrist. ap3 11:20 Chest Pa And Lat (2 Views) XRAY In Process Unspecified. EDMS 12:14 No provider procedures requiring assistance completed. Patient did not have IV access ap3 during this emergency room visit. Administered Medications: No medications were administered Outcome: 11:54 Discharge ordered by . kb 12:15 Discharged to home ambulatory. ap3 12:15 Condition: good 12:15 Discharge instructions given to patient, Instructed on discharge instructions, follow up and referral plans. Demonstrated understanding of instructions, follow-up care. 12:15 Patient left the ED. ap3 Signatures: Dispatcher [employer] EDMS Erin Gastelum FNP-C FNP-Ckb Rivera, Mary Chichi Garduno, RN RN ap3
[2021-02-06 12:46] VITALS: BP 172/89; TEMP 98.4; O2SAT 100
== END 2021-02-06 12:15 | disposition home or self-care (01) ==
LOC: ER 10:02
DX: J06.9 Acute upper respiratory infection, unspecified (principal); Z20.822 Contact with and (suspected) exposure to COVID-19; I10 Essential (primary) hypertension; Z21 Asymptomatic human immunodeficiency virus [HIV] infection status
CPT/HCPCS: 87070; 87081; 0240U; 71046; 99283

== ENCOUNTER 2021-09-26 12:10 | Emergency (ER) | payer OTHER ==
--- OUTSIDE RECORDS SUMMARY | 2021-09-26 12:13 | XMS REPORT | Continuity of Care Document ---
:1965 Author Organization [facility] t Address [address] [place] [address] Care Team Providers Name Role Phone Delfino Schumacher [facility], [facility] Primary Care P hysician JENNIFER Attending Clinician Unavailable Av Attending Clinician Unavailable Pgy2 Attending Clinician Unavailable Apolinar Weber MD Attending Clinician Sammi Attending Clinician Unavailable Brooklyn Steele Attending Clinician JENNIFER Admitting Clinician Unavailable Av Admitting Clinician Unavailable Maggie_Tressa Admitting Clinician Unavailable Payers Payer Name Policy Type Policy Number Effective Date Expiration Date [facility] [id number] 2020 (MEDICARE 00:00:00 REPLACEMENT HMO) Problems Condition Condition Condition Status Onset Resolution Last Treating Co mments Source Name Details Category Date Date Treatment Clinician Date LGSIL Pap LGSIL Pap Disease Active Uni vers smear of smear of 5-17 ity of vagina vagina 00:00: [address] Murmur, Murmur, Disease Active Univers cardiac cardiac 4-30 ity of 00:00: [address] Bacteremia Bacteremia Disease Active U nivers 4-29 ity of 00:00: [address] Medically Medically Disease Active Uni vers noncomplia noncomplia 09-02 it y of nt nt 00:00: Medical Branch Thrush Thrush Disease Active Univers 09-02 ity of 00:00: Medical Branch Obesity Obesity Disease Active Univers (BMI (BMI 4-20 ity of 30-39.9) 30-39.9) 00:00: Medical Branch Genital Genital Disease Active Univers warts warts 08-25 ity of 00:00: Medical Branch H/O: H/O: Disease Active Univers hysterecto hysterecto - it y of my my 00:00: Medical Branch 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 03-01 it y of ciency ciency 00:00: [place] virus virus Medical infection) infection) Br anch Allergies, Adverse Reactions, Alerts This patient has no known allergies or adverse reactions. Social History Social Habit Start Date Stop Date Quantity Comments Source Exposure to 2021-07-08 2021-07-18 Not sure [facility] SARS-CoV-2 00:00:00 15:42:00 [facility] (event) Branch Alcohol intake 2021-07-18 2021-07-18 Current [facility] 00:00:00 00:00:00 non-drinker of [facility] alcohol Branch (finding) Tobacco use and 2011-12-31 2011-12-31 Never used Universit y of exposure 00:00:00 00:00:00 [facility] Sex Ass[birth year] At [birth year] Universit y of 00:00:00 00:00:00 [facility] Smoking Status Start Date Stop Date Source Never smoker [facility] Branch Medications Ordered Filled Start Stop Current Ordering Indication Dosage Frequency Signature Comments Components Source Medication Medication Date Date Medication? Clinician (SIG) Name Name sulfamethox Yes [id number] 1{tbl} Take 1 Univers azole-trime 5-05 tablet by ity of oprim 00:00: mouth [place] 800-160 mg 00 daily. Medical per tablet Branch ALPRAZOLAM Yes Take by Univ ers ORAL 5-04 mouth. ity of 17:22: [place] 53 Medical Branch efavirenz Yes [id number] 600mg Take 1 Un inocente 600 mg 5-04 tablet by ity of tablet 00:00: mouth [place] 00 daily. Medical Branch amoxicillin Yes [id number] 1{tbl} Take 1 Univers -clavulanat 5-04 tablet by ity of e 875-125 00:00: mouth [place] mg per 00 every 12 Medical tablet (twelve) Branch hours. lamiVUDine Yes [id number] 150mg Take 1 U nivers 150 mg 5-04 tablet by ity of tablet 00:00: mouth 2 [place] 00 (two) Medical times Branch daily. metoprolol Yes [id number] 12.5mg Take 0.5 Univers tartrate 25 5-04 tablets by it y of mg tablet 00:00: mouth 2 [place] 00 (two) Medical times Branch daily. nystatin Yes [id number] 388181Y Take 5 mL Univers 100,000 5-04 by mouth 4 ity of unit/mL 00:00: (four) [place] suspension 00 times Medical daily. Branch losartan Yes [id number] 100mg Take 1 U nivers 100 mg 8-20 tablet by ity of tablet 00:00: mouth [place] 00 daily. Medical Branch amLODIPine Yes [id number] 10mg Take 1 Univers 10 mg 7-02 tablet by ity of tablet 00:00: mouth [place] 00 daily. Medical Branch atorvastati Yes [id number] 40mg Take 1 Univers n 40 mg 7-02 tablet by ity of tablet 00:00: mouth at [place] 00 bedtime. Medical Branch fluticasone Yes [id number] 2{spray Use 2 Univers propionate 6-09 } Sprays in ity of 50 00:00: each [place] mcg/actuati 00 nostril Medic al on nasal daily. Branch spray fluticasone Yes [id number] 2{puff} Inhale 2 Univers propionate 6-09 Puffs ity of (FLOVENT 00:00: every 12 [place] HFA) 220 00 (twelve) Medical mcg/actuati hours. Branch on inhaler albuterol Yes [id number] 2{puff} Inhale 2 Univers 90 6-09 Puffs ity of mcg/actuati 00:00: every 4 [place] as on inhaler 00 (four) Medical hours as Branch needed for Wheezing or Shortness of Breath. ibuprofen Yes [id number] 600mg Take 1 Univers 600 mg 5-21 tablet by ity of tablet 00:00: mouth [place] 00 every 6 Medical (six) Branch hours as needed for Pain (scale 4-6). chlorhexidi 2018-02 Yes [id number] 15mL Swish and Univers ne 0-07 spit out ity of (PERIDEX) 00:00: 15 mL 2 [place] 0.12 % 00 (two) Medical mouthwash times Branch daily. Cetirizine 2014-02 Yes 10mg Take 1 Cap U nivers (ZYRTEC) 10 1-13 by mouth ity of mg capsule 00:00: at [place] 00 bedtime. [facility] Branch Immunizations Ordered Filled Immunization Date Status Comments Sour e Immunization Name Name Suzette 2021-06-13 Completed [facility] (Cilgavimab) 00:00:00 [facility] [place] [facility] 2021-06-13 Completed [facility] (Tixagevimab) 00:00:00 [facility] [place] [facility] Branch TDAP 2014-08-19 Completed [facility] 00:00:00 [facility] Influenza Virus 2012-01-21 Completed [facility] y of Vaccine 00:00:00 [facility] Vital Signs Vital Name Observation Time Observation Value Comments Source Systolic blood 2021-07-18 20:42:00 174 mm[facility]Hg[facility] Diastolic blood 2021-07-18 20:42:00 98 mm[Hg] [facility] Heart rate 2021-07-18 20:42:00 104 /min [facility] Body temperature 2021-07-18 20:42:[address] [facility] Body height 2021-07-18 20:42:00 160 cm [facility] Body weight 2021-07-18 20:42:00 56.246 kg [facility] BMI 2021-07-18 20:42:00 21.97 kg/m2 [facility] Procedures This patient has no known procedures. Encounters Start End Encounter Admission Attending Care Care Encounter Source Date/Time Date/Time Type Type Clinicians Facility Department ID 2021-09-07 2021-09-07 Outpatient ELO HARTHOP [facility] [id number] 00:00:00 00:00:00 [id number] 2021-08-25 2021-08-25 [place] [id number] [facility] 03:29:00 03:29:00 0715 Medica l Group 2021-07-18 2021-07-18 Office Pgy2 UN[facility]ERS[facility] [id number] Univers 15:15:00 16:23:57 Visit Apolinar Weber [facility] [id number] [facility] [id number] [facility] [id number] [place] [address] Branch 2021-05-16 2021-05-16 Outpatient Adams_R [facility] [place] [id number] [facility] 09:00:00 09:00:00 0405 Medica l Group 2020-08-25 2020-08-25 Outpatient [facility]_R [facility] [place] [id number] [facility] 11:32:00 11:32:00 0715 Medica l Group 2020-08-04 2020-08-04 [place] [id number] [facility] 01:58:00 01:58:00 0624 Medica l Group 2020-07-18 2020-07-18 Outpatient [place]_A [facility] G [id number] [facility] 01:42:00 01:42:00 0607 Medica l Group 2020-07-01 2020-07-01 [facility] [id number] 13:47:00 16:34:[address] [facility] [place] [id number] [place] [id number] [place] [id number] Results Test Description Test Time Test Comments Results Result Comments Source CULTURE, URINE 2021-07-05 SPECIMEN NUMBER: 09:14:59 [id number] CULTURE, URINE SPECIMEN NUMBER: [id number] SPECIMEN COMMENT: URINE SOURCE: URINE REPORT STATUS: FINAL FINAL REPORT: 07/05/2021 >100,000 CFU/ML MIXED MICROBIAL POPULATION PRESENT, NO PREDOMINATING ORGANISMS;PROBABLE CONTAMINANTS. VAGINAL PATHOGENS DNA PANEL 2021-07-04 15:31:31 Test Item Value Reference Range Interpretation Comme nts DIANNA SPECIES (test code = NEGATIVE NEGATIVE ) G. VAGINALIS (test code = NEGATIVE NEGATIVE ) T. VAGINALIS (test code = NEGATIVE NEGATIVE U NLESS OTHERWISE INDICATED, ALL ) TESTING PERFORM ED ATCLINICAL PATHOLOGY [place]. [address] [place] [address] LABORATORY DIRE CTOR: ALYSSIA FRASER M.D. CLIA NUMBER [id number] [place]. [id number] CULTURE, [id number] 12:43:02SPECIMEN NUMBER: [id number] CULTURE, URINE SPECIMEN NUMBER: [id number] SPECIMEN COMMENT: URINE SOURCE:URINE REPORT STATUS: FINAL ISOLATE NUMBER 1: ORGANISM: 04/28/2021 10-50,000 CFU/ML ENTEROCOCCUS SPECI ES (GROUP D) IDENTIFICATION: 04/29/2021 ENTEROCOCCUS SPECIES (GROUP D) ENTEROCOCCUS SP. AMPICILLIN SENSITIVE <=2CIPROFLOXACIN SENSITIVE <=1LEVOFLOXACIN SENSITIVE 1NITROFURANTOIN SENSITIVE <=32TETRACYCLINE RESISTANT >8VANCOMYCIN SENSITIVE 2 NOTE: NUMBERS DISPLAYED REPRESENT MINIMUM INHIBITORY CONCENTRATION (CHAYO) WHICH IS EXPRESSED IN MCG/ML.URINALYSIS WITH [id number] 07:51:12 Test Item Value Reference Range Interpretation Comments COLOR (test code = ORANGE YELLOW-STRAW A 1501) APPEARANCE (test code CLOUDY CLEAR A = 1502) SPECIFIC GRAVITY (test 1.020 1.005-1.035 code = 1503) LEUKOCYTE ESTERASE 2+ NEGATIVE A (test code = 1504) NITRITE (test code = NEGATIVE NEGATIVE 1505) pH (test code = 1506) 6.0 5.0-9.0 PROTEIN (test code = 3+ NEGATIVE A 1507) GLUCOSE (test code = NEGATIVE NEGATIVE 1508) KETONES (test code = NEGATIVE NEGATIVE 1509) UROBILINOGEN (test 0.2 MG/DL See_Comment [Automat ed message] code = 1510) The system [employer] generated this result transmitted ref erence range: <=2.0. T he reference range was not used to int erpret this result as normal/abnormal . BILIRUBIN (test code = NEGATIVE NEGATIVE 1511) OCCULT BLOOD (test 3+ NEGATIVE A code = 1512) WHITE BLOOD CELLS >50 /HPF 0-5 A (test code = 1513) RED BLOOD CELLS (test >50 /HPF 0-5 A code = 1514) EPITHELIAL CELLS (test 0-5 /HPF 0-10 code = 21903) BACTERIA (test code = 3+ NONE SEEN A 1515) CASTS, HYALINE (test TRACE NONE-TRACE UNLESS OTHERWISE code = 1517) INDICATED, ALL TESTING PERFORMED [facility], [id number] [place] [address] DIRECTOR: ALYSSIA FRASER M.D. CLIA NUMBER [id number] CAP ACCREDITATION N O. [id number]
--- NOTE | 2021-09-26 12:40 | ER ---
Nurse's Notes [facility] Name: Charito Michael Age: 56 yrs Sex: Female : 1965 Arrival Date: 09/26/2021 Time: 12:14 Bed Waiting Private MD: Diagnosis: Encounter for screening for dental disorders Presentation: 09/26 12:23 Chief complaint: Patient states: "I have four boils in my mouth for two weeks and the iw pain goes all the way to my back.". Coronavirus screen: At this time, the client does not indicate any symptoms associated with coronavirus-19. Ebola Screen: No symptoms or risks identified at this time. Initial Sepsis Screen: Does the patient meet any 2 criteria? No. Patient's initial sepsis screen is negative. Does the patient have a suspected source of infection? No. Patient's initial sepsis screen is negative. Risk Assessment: Do you want to hurt yourself or someone else? Patient reports no desire to harm self or others. Onset of symptoms was September 12, 2021. 12:23 Method Of Arrival: Ambulatory iw 12:23 Acuity: GIULIANO 4 iw Triage Assessment: 09/25 13:00 General: Appears in no apparent distress. Behavior is calm, cooperative. iw Historical: - Allergies: 09/26 12:24 NKA; iw Screenin:14 Abuse screen: Denies threats or abuse. Denies injuries from another. Nutritional iw screening: No deficits noted. Tuberculosis screening: No symptoms or risk factors identified. Fall Risk None identified. Assessment: 13:00 General: Appears in no apparent distress. Behavior is calm, cooperative. Pain: iw Complains of pain in mouth. Neuro: Level of Consciousness is awake, alert, obeys commands, Oriented to person, place, time, situation, Moves all extremities. Cardiovascular: Patient's skin is warm and dry. Respiratory: Respiratory effort is even, unlabored, Respiratory pattern is regular. Derm: Skin is intact, is healthy with good turgor. Vital Signs: 12:23 BP 156 / 93; Pulse 84; Resp 16; Temp 97.1; Pulse Ox 99% ; Weight 68.04 kg; Height 5 ft. iw 3 in. (160.02 cm); Pain 10/10; 12:23 Body Mass Index 26.57 (68.04 kg, 160.02 cm) iw ED Course: 12:14 Patient arrived in ED. mr 12:15 Brenden Gibson is PHCP. jl9 12:15 Francisco Jaeger DO is Attending Physician. jl9 12:24 Triage completed. iw 13:00 Arm band placed on. iw 13:14 No provider procedures requiring assistance completed. Patient did not have IV access iw during this emergency room visit. 13:15 Kelly Deleon, RN is Primary Nurse. iw Administered Medications: 13:15 Drug: HYDROcodone-acetaminophen 5 mg-325 mg 1 tabs Route: PO; iw 13:20 Follow up: Response: No adverse reaction iw 13:15 Drug: Amoxicillin 875 mg Route: PO; iw 13:20 Follow up: Response: No adverse reaction iw Outcome: 12:40 Discharge ordered by MD. jl9 13:14 Discharged to home ambulatory. iw 13:14 Condition: good 13:14 Discharge instructions given to patient, Instructed on discharge instructions, follow up and referral plans. medication usage, Demonstrated understanding of instructions, follow-up care, medications, Prescriptions given X 1. 13:15 Patient left the ED. iw Signatures: Sandi Rogers Kelly eDleon, RN RN iw Brenden Gibson jl9
--- NOTE | 2021-09-26 12:41 | EDPHYS ---
Physician Documentation [facility] Name: Charito Michael Age: 56 yrs Sex: Female : 1965 Arrival Date: 09/26/2021 Time: 12:14 Bed Waiting Private MD: ED Physician Francisco Jaeger HPI: 09/26 12:35 This 56 yrs old Black Female presents to ER via Ambulatory with complaints of jl9 Toothache, patient has a known dental abscess to left upper mouth. Patient reports history of dental problems. . 12:35 The patient presents with pain, redness. The problem is located in the mouth. Onset: jl9 The symptoms/episode began/occurred 1 week(s) ago. Duration: The symptoms are continuous. Modifying factors: The symptoms are alleviated by warm compresses, the symptoms are aggravated by chewing. Severity of symptoms: in the emergency department the symptoms a " 6" out of "10". The patient has experienced similar episodes in the past. Historical: - Allergies: 12:24 NKA; iw ROS: 12:36 Constitutional: Negative for fever, chills, and weight loss, Eyes: Negative for injury, jl9 pain, redness, and discharge. 12:36 Neck: Negative for injury, pain, and swelling, Cardiovascular: Negative for chest pain, palpitations, and edema, Respiratory: Negative for shortness of breath, cough, wheezing, and pleuritic chest pain, Abdomen/GI: Negative for abdominal pain, nausea, vomiting, diarrhea, and constipation, Back: Negative for injury and pain, : Negative for injury, bleeding, discharge, and swelling, MS/Extremity: Negative for injury and deformity, Skin: Negative for injury, rash, and discoloration, Neuro: Negative for headache, weakness, numbness, tingling, and seizure, Psych: Negative for depression, anxiety, suicide ideation, homicidal ideation, and hallucinations, Allergy/Immunology: Negative for hives, rash, and allergies, Endocrine: Negative for neck swelling, polydipsia, polyuria, polyphagia, and marked weight changes, Hematologic/Lymphatic: Negative for swollen nodes, abnormal bleeding, and unusual bruising. 12:36 ENT: Positive for dental pain, Gum pain Negative for Exam: 12:37 Constitutional: This is a well developed, well nourished patient who is awake, alert, jl9 and in no acute distress. Head/Face: Normocephalic, atraumatic. Eyes: Pupils equal round and reactive to light, extra-ocular motions intact. Lids and lashes normal. Conjunctiva and sclera are non-icteric and not injected. Cornea within normal limits. Periorbital areas with no swelling, redness, or edema. 12:37 ENT: Mouth: Gums: reddened, swollen, on the left buccal mucosa. 12:38 Neck: Trachea midline, no thyromegaly or masses palpated, and no cervical jl9 lymphadenopathy. Supple, full range of motion without nuchal rigidity, or vertebral point tenderness. No Meningismus. Chest/axilla: Normal chest wall appearance and motion. Nontender with no deformity. No lesions are appreciated. Cardiovascular: Regular rate and rhythm with a normal S1 and S2. No gallops, murmurs, or rubs. Normal PMI, no JVD. No pulse deficits. Respiratory: Lungs have equal breath sounds bilaterally, clear to auscultation and percussion. No rales, rhonchi or wheezes noted. No increased work of breathing, no retractions or nasal flaring. Abdomen/GI: Soft, non-tender, with normal bowel sounds. No distension or tympany. No guarding or rebound. No evidence of tenderness throughout. Back: No spinal tenderness. No costovertebral tenderness. Full range of motion. Skin: Warm, dry with normal turgor. Normal color with no rashes, no lesions, and no evidence of cellulitis. MS/ Extremity: Pulses equal, no cyanosis. Neurovascular intact. Full, normal range of motion. Neuro: Awake and alert, GCS 15, oriented to person, place, time, and situation. Cranial nerves II-XII grossly intact. Motor strength 5/5 in all extremities. Sensory grossly intact. Cerebellar exam normal. Normal gait. Psych: Awake, alert, with orientation to person, place and time. Behavior, mood, and affect are within normal limits. Vital Signs: 12:23 BP 156 / 93; Pulse 84; Resp 16; Temp 97.1; Pulse Ox 99% ; Weight 68.04 kg; Height 5 ft. iw 3 in. (160.02 cm); Pain 10/10; 12:23 Body Mass Index 26.57 (68.04 kg, 160.02 cm) iw MDM: 12:29 Patient medically screened. jl9 12:38 Data reviewed: vital signs, nurses notes. jl9 12:38 Counseling: I had a detailed discussion with the patient and/or guardian regarding: the jl9 historical points, exam findings, and any diagnostic results supporting the discharge/admit diagnosis, the need for outpatient follow up. 12:38 Counseling: I had a detailed discussion with the patient and/or guardian regarding: jl9 Patient agrees to follow up with dentist. . Administered Medications: 13:15 Drug: HYDROcodone-acetaminophen 5 mg-325 mg 1 tabs Route: PO; iw 13:20 Follow up: Response: No adverse reaction iw 13:15 Drug: Amoxicillin 875 mg Route: PO; iw 13:20 Follow up: Response: No adverse reaction iw Disposition: 21:22 Co-signature as Attending Physician, Francisco Jaeger DO I agree with the assessment and ms3 plan of care. Disposition Summary: 09/26/21 12:40 Discharge Ordered Location: Home jl9 Condition: Stable jl9 Diagnosis - Encounter for screening for dental disorders jl9 Followup: jl9 - With: Private Physician - When: - Reason: Recheck today's complaints, Continuance of care, Re-evaluation by your physician Discharge Instructions: - Discharge Summary Sheet jl9 - Dental Abscess, [id number] jl9 Forms: - Medication Reconciliation Form jl9 - Thank You Letter jl9 - Antibiotic Education jl9 - Prescription Opioid Use jl9 Prescriptions: - Amoxicillin 875 mg Oral Tablet - take 1 tablet by ORAL route every 12 hours for 10 days; 20 tablet; Refills: 0, jl9 Product Selection Permitted - Tramadol 50 mg Oral Tablet - take 1 tablet by ORAL route every 8 hours as needed; 12 tablet; Refills: 0, jl9 Product Selection Permitted Signatures: Kelly Deleon, RN RN Francisco Christian DO DO ms3 Brenden Gibson jl9 Corrections: (The following items were deleted from the chart) 12:39 12:35 This 56 yrs old Black Female presents to ER via Ambulatory with complaints of jl9 Toothache, patient has a known dental abscess to left upper mouth. . jl9
[2021-09-26] MEDS ORDERED: HYDROCODONE/APAP 5/325 MG TAB ONE (13:19)
[2021-09-26] MEDS ORDERED: AMOX/K CLAV 875 MG TAB ONE (13:20)
== END 2021-09-26 13:15 | disposition home or self-care (01) ==
LOC: ER 12:10
DX: K08.89 Other specified disorders of teeth and supporting structures (principal)

== ENCOUNTER 2021-10-23 19:25 | Inpatient (IN) | payer OTHER ==
--- OUTSIDE RECORDS SUMMARY | 2021-10-23 19:29 | XMS REPORT | Continuity of Care Document ---
:1965 Author Organization [facility] t Address [address] [place] [address] Care Team Providers Name Role Phone GIL Endy [facility], [facility] Primary Care P hysician Unavailable LEE HENDERSON Attending Clinician Unavailable JENNIFER Attending Clinician Unavailable Av Attending Clinician Unavailable Pgy2 Attending Clinician Unavailable Apolinar Weber MD Attending Clinician Sammi Attending Clinician Unavailable Brooklyn Steele Attending Clinician JENNIFER Admitting Clinician Unavailable Av Admitting Clinician Unavailable Sammi Admitting Clinician Unavailable Payers Payer Name Policy Type Policy Number Effective Date Expiration Date [facility] [id number] 2016 MEDICAID 00:00:00 [facility] [id number] 2020 (MEDICARE 00:00:00 REPLACEMENT HMO) Problems Condition Condition Condition Status Onset Resolution Last Treating Co mments Source Name Details Category Date Date Treatment Clinician Date LGSIL Pap LGSIL Pap Disease Active Uni vers smear of smear of 5-17 ity of vagina vagina 00:00: [address] Murmur, Murmur, Disease Active Univers cardiac cardiac 4-30 ity of 00:00: [address] Bacteremia Bacteremia Disease Active U nivers 4-29 ity of 00:00: [place] 00 Medical Branch Medically Medically Disease Active Uni vers noncomplia noncomplia 09-02 it y of nt nt 00:00: [facility] Branch Thrush Thrush Disease Active Univers 7-23 ity of 00:00: [address] [place] [address] Branch Obesity Obesity Disease Active Univers (BMI (BMI 4-20 ity of 30-39.9) 30-39.9) 00:00: [facility] Branch Genital Genital Disease Active Univers warts warts -15 ity of 00:00: [facility] Branch H/O: H/O: Disease Active Univers hysterecto hysterecto -15 it y of my my 00:00: 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 -19 it y of ciency ciency 00:00: [place] virus virus 00 Medical infection) infection) Br anch Allergies, Adverse Reactions, Alerts Allergy Allergy Status Severity Reaction(s) Onset Inactive Treating Comm ents Source Name Type Date Date Clinician NO KNOWN Drug Active Univers ALLERGIE Class ity of S [facility] Social History Social Habit Start Date Stop Date Quantity Comments Source Exposure to 2021-07-08 2021-07-18 Not sure [facility] SARS-CoV-2 00:00:00 15:42:00 [facility] (event) Branch Alcohol intake 2021-07-18 2021-07-18 Current University of 00:00:00 00:00:00 non-drinker of [facility] alcohol Branch (finding) Tobacco use and 2011-12-31 2011-12-31 Never used Universit y of exposure 00:00:00 00:00:00 [facility] Sex Ass[birth year] At [birth year] Universit y of 00:00:00 00:00:00 [facility] Smoking Status Start Date Stop Date Source Never smoker [facility] Medications Ordered Filled Start Stop Current Ordering Indication Dosage Frequency Signature Comments Components Source Medication Medication Date Date Medication? Clinician (SIG) Name Name sulfamethox Yes [id number] 1{tbl} Take 1 Univers azole-trime 5-05 tablet by ity of oprim 00:00: mouth [place] 800-160 mg 00 daily. Medical per tablet Branch ALPRAZOLAM Yes Take by Univ ers ORAL 5-04 mouth. ity of 17:22: [place] 53 Medical Branch efavirenz 0 Yes [id number] 600mg Take 1 Un inocente 600 mg 5-04 tablet by ity of tablet 00:00: mouth [place] 00 daily. Medical Branch amoxicillin 0 Yes [id number] 1{tbl} Take 1 Univers -clavulanat 5-04 tablet by ity of e 875-125 00:00: mouth [place] mg per 00 every 12 Medical tablet (twelve) Branch hours. lamiVUDine Yes [id number] 150mg Take 1 U nivers 150 mg 5-04 tablet by ity of tablet 00:00: mouth 2 [place] 00 (two) Medical times Branch daily. metoprolol Yes [id number] 12.5mg Take 0.5 Univers tartrate 25 5-04 tablets by it y of mg tablet 00:00: mouth 2 [place] 00 (two) Medical times Branch daily. nystatin Yes [id number] Take 5 mL Univers 100,000 5-04 by mouth 4 ity of unit/mL 00:00: (four) [place] suspension 00 times Medical daily. Branch losartan Yes [id number] 100mg Take 1 U nivers 100 mg 8-20 tablet by ity of tablet 00:00: mouth [place] 00 daily. Medical Branch amLODIPine Yes [id number] 10mg Take 1 Univers 10 mg 7-02 tablet by ity of tablet 00:00: mouth [place] 00 daily. Medical Branch atorvastati Yes [id number] 40mg Take 1 Univers n 40 mg 7-02 tablet by ity of tablet 00:00: mouth at [place] 00 bedtime. Medical Branch fluticasone Yes [id number] 2{spray Use 2 Univers propionate 6-09 } Sprays in ity of 50 00:00: each [place] mcg/actuati 00 nostril Medic al on nasal daily. Branch spray fluticasone Yes [id number] 2{puff} Inhale 2 Univers propionate 6-09 Puffs ity of (FLOVENT 00:00: every 12 [place] HFA) 220 00 (twelve) Medical mcg/actuati hours. Branch on inhaler albuterol Yes [id number] 2{puff} Inhale 2 Univers 90 6-09 Puffs ity of mcg/actuati 00:00: every 4 [place] as on inhaler 00 (four) Medical hours as Branch needed for Wheezing or Shortness of Breath. ibuprofen Yes [id number] 600mg Take 1 Univers 600 mg 5-21 tablet by ity of tablet 00:00: mouth [place] 00 every 6 Medical (six) Branch hours as needed for Pain (scale 4-6). chlorhexidi 2018-02 Yes [id number] 15mL Swish and Univers ne 0-07 spit out ity of (PERIDEX) 00:00: 15 mL 2 [place] 0.12 % 00 (two) Medical mouthwash times Branch daily. Cetirizine 2014-02 Yes 10mg Take 1 Cap U nivers (ZYRTEC) 10 1-13 by mouth ity of mg capsule 00:00: at [place] [address] [facility] Immunizations Ordered Filled Immunization Date Status Comments [facility] e Immunization Name Name Suzette 2021-06-13 Completed [facility] (Cilgavimab) 00:00:00 [place] Medica l Branch [facility] 2021-06-13 Completed [facility] (Tixagevimab) 00:00:00 [place] [facility] TDAP 2014-08-19 Completed [facility] 00:00:00 [facility] Influenza Virus 2012-01-21 Completed [facility] y of Vaccine 00:00:00 [facility] Vital Signs Vital Name Observation Time Observation Value Comments Source Systolic blood 2021-07-18 20:42:00 174 mm[Hg] [facility] Diastolic blood 2021-07-18 20:42:00 98 mm[Hg] [facility] Heart rate 2021-07-18 20:42:00 104 /min [facility] Body temperature 2021-07-18 20:42:00 35.72 [place] [facility] [place] [facility] height 2021-07-18 20:42:00 160 cm [facility] Body weight 2021-07-18 20:42:00 56.246 kg [facility] BMI 2021-07-18 20:42:00 21.97 kg/m2 Universi ty [facility] Procedures This patient has no known procedures. Encounters Start End Encounter Admission Attending Care Care Encounter Source Date/Time Date/Time Type Type Clinicians Facility Department ID 2022-07-18 2022-07-18 Outpatient R SANTIAGO [facility] [id number] Univers 09:45:00 09:45:00 LEE [id number] ity o f [facility] 2021-10-10 2021-10-10 Outpatient R [facility] [id number] Univers 09:30:00 09:30:00 ity of [facility] 2021-09-07 2021-09-07 Outpatient JANET_LESLIE BHARDWAJ [facility] [address]06 [place] 00:00:00 00:00:00 HN [id number] da [facility] 2021-08-25 2021-08-25 Outpatient Adams_R DMG [facility] [id number] Devoted 03:29:00 03:29:00 0715 Medica l Group 2021-07-18 2021-07-18 Office Pgy2 UNIVERSIT [id number] Univers 15:15:00 16:23:57 [facility] [id number] ity of [facility] [id number] [place] [id number] [address] 2021-05-16 2021-05-16 [facility] [id number] [id number] [facility] 09:00:00 09:00:00 0405 Medica l Group 2020-08-25 2020-08-25 Outpatient Adams_R DMG [facility] [id number] Devoted 11:32:00 11:32:00 0715 Medica l Group 2020-08-04 2020-08-04 Outpatient Adams_R DMG G [id number] [facility]oted 01:58:00 01:58:00 0624 Medica l Group 2020-07-18 2020-07-18 Outpatient Tumelson_A DMG [place] [id number] Devoted 01:42:00 01:42:00 0607 Medica l Group 2020-07-01 2020-07-01 Emergency Chantelle [facility] [id number] 13:47:00 16:34:00 [place] [id number] [place] [id number] [place] [id number] Results Test Description Test Time Test Comments Results Result Comments Source CULTURE, URINE 2021-07-05 SPECIMEN NUMBER: 09:14:59 [id number] CULTURE, URINE SPECIMEN NUMBER: [id number] SPECIMEN COMMENT: URINE SOURCE: URINE REPORT STATUS: [...] ALL ) TESTING PERFORM ED ATCLINICAL PATHOLOGY [facility], [facility]. [address] [place] [address] LABORATORY DIRE CTOR: ALYSSIA FRASER M.D. CLIA NUMBER [id number] [place] [id number] CULTURE, [id number] 12:43:02SPECIMEN NUMBER: [id number] CULTURE, URINE SPECIMEN NUMBER: [id number] SPECIMEN COMMENT: URINE SOURCE:URINE REPORT STATUS: FINAL ISOLATE NUMBER 1: ORGANISM: 04/28/2021 10-50,000 CFU/ML ENTEROCOCCUS SPECI ES (GROUP D) IDENTIFICATION: 04/29/2021 ENTEROCOCCUS SPECIES (GROUP D) ENTEROCOCCUS SP. AMPICILLIN SENSITIVE <=2CIPROFLOXACIN SENSITIVE <=1LEVOFLOXACIN SENSITIVE 1NITROFURANTOIN SENSITIVE <=32TETRACYCLINE RESISTANT >8VANCOMYCIN SENSITIVE 2 NOTE: NUMBERS DISPLAYED REPRESENT MINIMUM INHIBITORY CONCENTRATION (CHAYO) WHICH IS EXPRESSED IN MCG/ML.URINALYSIS WITH [id number] 07:51:12 Test Item Value Reference Range Interpretation [...] ed message] code = 1510) The system [employer] generated this result transmitted ref erence range: [...] CELLS (test 0-5 /HPF 0-10 code = 66548) BACTERIA (test code = 3+ NONE SEEN A 1515) CASTS, HYALINE (test TRACE NONE-TRACE UNLESS OTHERWISE code = 1517) INDICATED, ALL TESTING PERFORMED [facility], [facility]. [address] [place] [id number] [facility] DIRECTOR: ALYSSIA FRASER M.D. CLIA NUMBER [id number] CAP ACCREDITATION N O. [id number]
[2021-10-23 21:51] LABS: Absolute Lymphocytes (CBC) 0.7 K/uL (0.7-4.9); MCV 101.4 fL (80-100); MPV 9.3 fL (7.6-11.3); RBC Red Blood Cell Count 3.25 M/uL (3.86-4.86)
[2021-10-23 22:14] LABS: Albumin 2.5 g/dL (3.4-5.0); Bilirubin Direct 0.1 mg/dL (0-0.2); Bilirubin Total 0.3 mg/dL (0.2-1.0); Potassium 2.9 mmol/L (3.5-5.1); Protein, Total 9.8 g/dL (6.4-8.2); Troponin High Sensitivity 498.7 pg/mL (<58.9)
--- NOTE | 2021-10-23 22:31 | RAD REPORT ---
EXAM DESCRIPTION: Juan Single View10/23/2021 10:21 pm CLINICAL HISTORY: Shortness of breath COMPARISON: 2020 FINDINGS: Mild chronic appearing bilateral interstitial lung opacities without change The lungs appear clear of acute infiltrate. The heart is normal size IMPRESSION: No acute abnormalities displayed
[2021-10-23] MEDS ORDERED: NS KCL 20MEQ 1,000 ML IV ONE (22:47)
[2021-10-23 23:07] LABS: Urine Blood Trace-lysed (Negative); Urine Glucose Negative (Negative); Urine Protein Negative (Negative)
[2021-10-23 23:24] LABS: Protime INR 1.36
[2021-10-23 23:33] LABS: Toxic Granulation 3+
[2021-10-23 23:34] LABS: Blood Morphology Comment NOT SEEN (NOT SEEN); Platelet Estimate ADEQ
[2021-10-23 23:37] LABS: Urine Bacteria <20 /HPF (<20)
--- NOTE | 2021-10-24 01:07 | EDPHYS ---
Physician Documentation [facility] Name: Charito Michael Age: 56 yrs Sex: Female : 1965 Arrival Date: 10/23/2021 Time: 19:31 Bed 13 Private MD: ED Physician Alexys Yarbrough HPI: 10/23 21:35 This 56 yrs old Black Female presents to ER via EMS with complaints of Shortness Of cp Breath. 21:35 The patient has shortness of breath at rest. Onset: The symptoms/episode began/occurred cp gradually. Duration: The symptoms are continuous. Associated signs and symptoms: Pertinent positives: diarrhea times 4 days, Pertinent negatives: chest pain, productive cough, fever, vomiting. Severity of symptoms: in the emergency department the symptoms are unchanged despite home interventions. Historical: - Allergies: 20:30 NKA; as6 - Home Meds: 20:30 albuterol sulfate 90 mcg/actuation inhalation aebs 2 puffs every 4-6 hours [Active]; as6 losartan 100 mg oral tab [Active]; allopurinol 100 mg Oral tab [Active]; cyclobenzaprine 5 mg Oral tab [Active]; amlodipine 10 mg tab [Active]; citalopram 20 mg tab [Active]; abacavir-lamivudine 600-300 mg oral tab [Active]; - PMHx: 20:30 CHF; COPD; HIV; Hypertension; Back pain; Hypercholesterolemia; as6 - PSHx: 20:30 Total abdominal hysterectomy; as6 - Immunization history:: Client reports receiving the 2nd dose of the Covid vaccine, Flu vaccine is up to date. - Social history:: Smoking status: Patient denies any tobacco usage or history of. ROS: 21:40 Constitutional: Negative for body aches, chills, fever, poor PO intake. cp 21:40 Eyes: Negative for injury, pain, redness, and discharge. cp 21:40 ENT: Negative for drainage from ear(s), ear pain, sore throat, difficulty swallowing, difficulty handling secretions. 21:40 Cardiovascular: Negative for chest pain, edema, palpitations. 21:40 Respiratory: Positive for shortness of breath, at rest. Negative for cough, wheezing. 21:40 Abdomen/GI: Positive for diarrhea, Negative for vomiting, constipation, black/tarry stool, rectal bleeding. 21:40 Back: Negative for pain at rest, pain with movement. 21:40 : Negative for urinary symptoms. 21:40 Neuro: Positive for weakness, Negative for altered mental status, dizziness, headache, syncope. 21:40 All other systems are negative. Exam: 21:50 Constitutional: The patient appears in no acute distress, alert, awake, cp non-diaphoretic, non-toxic, well developed, well nourished. 21:50 Head/Face: Normocephalic, atraumatic. cp 21:50 Eyes: Periorbital structures: appear normal, Conjunctiva: normal, no exudate, no injection, Sclera: no appreciated abnormality, Lids and lashes: appear normal, bilaterally. 21:50 ENT: External ear(s): are unremarkable, Nose: is normal, Mouth: Lips: moist, Oral mucosa: pink and intact, moist, Posterior pharynx: Airway: no evidence of obstruction, patent. 21:50 Neck: ROM/movement: is normal, is supple, without pain, no range of motions limitations. 21:50 Chest/axilla: Inspection: normal. 21:50 Cardiovascular: Rate: tachycardic, Rhythm: regular, Edema: is not appreciated, JVD: is not appreciated. 21:50 Respiratory: the patient does not display signs of respiratory distress, Respirations: normal, no use of accessory muscles, no retractions, labored breathing, is not present, Breath sounds: are clear throughout, no decreased breath sounds, no stridor, no wheezing. 21:50 Abdomen/GI: Inspection: abdomen appears normal, Bowel sounds: active, all quadrants, Palpation: soft, in all quadrants, nontender, in all quadrants. 21:50 Back: CVA tenderness, is absent. 21:50 Skin: no rash present. 21:50 Neuro: Orientation: to person, place \\T\\ time. Mentation: is normal, Motor: moves all fours, strength is normal, Sensation: is normal. Vital Signs: 20:27 BP 117 / 69; Pulse 111; Resp 20 S; Temp 98.7(O); Pulse Ox 96% on R/A; Weight 47.63 kg as6 (R); Height 5 ft. 3 in. (160.02 cm) (R); Pain 0/10; 20:54 BP 128 / 74; Pulse 101; Resp 27; Pulse Ox 97% on R/A; ja4 22:03 BP 123 / 77; Pulse 102; Resp 27; Pulse Ox 100% on R/A; bm7 20:27 Body Mass Index 18.60 (47.63 kg, 160.02 cm) as6 MDM: 20:58 Patient medically screened. cp 23:00 Differential diagnosis: Bronchitis pneumonia, Sepsis colitis. 10/24 01:30 ED course: Patient qualifies for severe sepsis with following criteria: A) Source of cp infection is colon, B) SIRS criteria: elevated WBC of 23 and tachycardia, C) Organ dysfunction: elevated troponin. 01:35 Data reviewed: vital signs, nurses notes, lab test result(s), EKG, radiologic studies, cp CT scan, plain films. :35 Test interpretation: by ED physician or midlevel provider: ECG, plain radiologic cp studies. 10/23 21:26 Order name: Basic Metabolic Panel; Complete Time: 22:29 10/23 22:30 Interpretation: Normal except: NA 134; K 2.9; CL 108; CO2 16; GLUC 110; BUN 64; CRE cp 1.85; GFR 31. 10/23 21:26 Order name: CBC with Diff; Complete Time: 23:55 10/23 22:07 Interpretation: Normal except: WBC 23.00; RBC 3.25; HGB 11.1; HCT 33.0; MCV 101.4; KEV% cp 90.7; LYM% 3.0; NEUT A 20.9; MNA 1.4. 10/23 21:26 Order name: LFT's; Complete Time: 22:29 10/23 22:30 Interpretation: Normal except: AST 153; ALT 81; ALK 134; TP 9.8; ALB 2.5; GLOB 7.3; A/G cp 0.3. 10/23 21:26 Order name: Magnesium; Complete Time: 22:29 10/23 23:27 Interpretation: Reviewed. 10/23 21:26 Order name: NT PRO-BNP; Complete Time: 22:29 10/23 22:30 Interpretation: Abnormal: NT PRO-BNP 1432. 10/23 21:26 Order name: PT-INR; Complete Time: 23:26 10/23 23:26 Interpretation: Reviewed. 10/23 21:26 Order name: Troponin HS; Complete Time: 22:29 10/23 22:30 Interpretation: Abnormal: Troponin HS 498.7. 10/23 22:14 Order name: Urine Microscopic Only; Complete Time: 23:55 10/23 22:14 Order name: Ova And Parasites 10/23 22:14 Order name: Rotavirus Antigen 10/23 22:14 Order name: Stool Culture 10/23 22:14 Order name: CDIFF 10/23 22:14 Order name: COVID-19 SARS RT PCR (Document "Date of Onset" if Symptomatic); Complete cp Time: 23:55 10/23 23:58 Interpretation: Reviewed. 10/23 22:14 Order name: Influenza Screen (a \\T\\ B); Complete Time: 23:26 10/23 23:27 Interpretation: Reviewed. 10/23 21:26 Order name: XRAY Chest (1 view); Complete Time: 23:26 10/23 23:27 Interpretation: Report review. 10/23 22:14 Order name: Strep; Complete Time: 23:26 10/23 23:27 Interpretation: Reviewed. 10/23 23:04 Order name: Throat Culture [facility] 10/23 23:08 Order name: Urine Dipstick-Ancillary; Complete Time: 23:26 [facility] 10/23 23:27 Interpretation: Reviewed. 10/23 23:30 Order name: CT Chest Abdomen Pelvis W/O Contrast 10/23 23:33 Order name: Manual Differential; Complete Time: 23:55 [facility] 10/23 23:58 Interpretation: Reviewed. 10/23 23:57 Order name: Lactate; Complete Time: 01:32 10/23 23:57 Order name: Procalcitonin; Complete Time: 00:50 10/24 00:50 Interpretation: Abnormal: Procalcitonin 8.96. 10/23 23:57 Order name: Blood Culture Adult (2) 10/24 03:47 Order name: CBC with Automated Diff; Complete Time: 02:32 EDAZ 10/24 04:01 Order name: Comprehensive Metabolic Panel; Complete Time: 02:32 EDAZ 10/24 04:01 Order name: Troponin High Sensitivity; Complete Time: 02:32 EDAZ 10/24 04:01 Order name: Lipid Profile; Complete Time: 02:32 EDAZ 10/24 04:01 Order name: Magnesium; Complete Time: 02:32 EDMS 10/23 21:26 Order name: EKG; Complete Time: 21:27 10/23 21:26 Order name: Cardiac monitoring; Complete Time: 21:38 10/23 21:26 Order name: EKG - Nurse/Tech; Complete Time: 21:37 10/23 21:26 Order name: IV Saline Lock; Complete Time: 21:37 10/23 21:26 Order name: Labs collected and sent; Complete Time: 21:37 10/23 21:26 Order name: O2 Per Protocol; Complete Time: 21:38 10/23 21:26 Order name: O2 Sat Monitoring; Complete Time: 21:38 10/23 22:14 Order name: Urine Dipstick-Ancillary (obtain specimen); Complete Time: 01:26 cp Administered Medications: 10/23 22:44 Drug: Potassium Chloride 20 mEq Route: IV; Rate: 250 ml/hr; Site: right antecubital; [facility] 10/24 01:33 Drug: Ciprofloxacin 400 mg Volume: 200 ml; Route: IVPB; Infused Over: 60 mins; Site: [facility] right [facility]; 01:34 Drug: Potassium Effervescent Tablet 50 mEq Route: PO; [facility] 01:52 Drug: Lactated Ringers Solution 500 ml Route: IV; Rate: bolus; Site: right antecubital; [facility] 02:19 Drug: metroNIDAZOLE 500 mg Volume: 100 ml; Route: IVPB; Infused Over: 30 mins; [facility]; 03:34 Drug: Lactated Ringers Solution 1000 ml Route: IV; Rate: 100 ml/hr; Site: right [facility] antecubital; Disposition Summary: 10/24/21 01:07 Hospitalization Ordered Hospitalization Status: Inpatient Admission cp Condition: Stable cp Problem: new cp Symptoms: have improved cp Bed/Room Type: Standard cp Provider: Prince Luz Maria(10/24/21 01:10) cp Location: Telemetry/MedSurg (Inpatient)(10/24/21 04:01) mw Room Assignment: [facility](10/24/21 04:01) mw Diagnosis - Infectious gastroenteritis and colitis, unspecified cp - Sepsis, unspecified organism cp - Hypokalemia cp Forms: - Medication Reconciliation Form cp - SBAR form cp Addendum: 10/27/2021 07:12 Co-signature as Attending Physician, Alexys Yarbrough MD I agree with the assessment and k dr plan of care. Signatures: Dispatcher [employer] EDFátima Schumacher RN Alexys Early MD MD [facility] Jay Crane, CNC MECHANIC-C CNC MECHANIC-Cla1 Chi Holder PA PA cp Slawson, Ashby, RN RN as6 Max Rider RN RN ja4 Corrections: (The following items were deleted from the chart) 10/24 01:10 01:07 Jay Crane cp 01:23 01:07 Telemetry/MedSurg (Inpatient) [facility] 01:23 01:07 cp 04:01 01:23 [facility] ER HOLD [facility] 04:01 01:23 ERHOLD- [facility]
--- NOTE | 2021-10-24 01:07 | ER ---
Nurse's Notes [facility] Name: Charito Michael Age: 56 yrs Sex: Female : 1965 Arrival Date: 10/23/2021 Time: 19:31 Bed 13 Private MD: Diagnosis: Infectious gastroenteritis and colitis, unspecified;Sepsis, unspecified organism;Hypokalemia Presentation: 10/23 20:24 Chief complaint: Patient states: I feel like i can't catch my breath sister states, she as6 has been weak and had Diarrhea for the last 4 days. she feels short of breath. Coronavirus screen: Vaccine status: Patient reports receiving the 2nd dose of the covid vaccine. Ebola Screen: No symptoms or risks identified at this time. Initial Sepsis Screen: Does the patient meet any 2 criteria? No. Patient's initial sepsis screen is negative. Does the patient have a suspected source of infection? No. Patient's initial sepsis screen is negative. Risk Assessment: Do you want to hurt yourself or someone else? Patient reports no desire to harm self or others. 20:24 Method Of Arrival: EMS: [facility] as6 20:24 Acuity: GIULIANO 3 as6 20:27 Onset of symptoms was October 23, 2021. Care prior to arrival: Medication(s) given: as6 Albuterol Neb x 1, sister states she took it this evening. It helps for a while but then she gets tired easily. Triage Assessment: 20:33 General: Appears uncomfortable, slender, Behavior is cooperative, anxious. Pain: Denies as6 pain. Respiratory: Reports shortness of breath on exertion Onset: The symptoms/episode began/occurred chronic, the patient has moderate shortness of breath. 20:37 Respiratory: Breath sounds are clear bilaterally. as6 Historical: - Allergies: 20:30 NKA; as6 - Home Meds: 20:30 albuterol sulfate 90 mcg/actuation inhalation aebs 2 puffs every 4-6 hours [Active]; as6 losartan 100 mg oral tab [Active]; allopurinol 100 mg Oral tab [Active]; cyclobenzaprine 5 mg Oral tab [Active]; amlodipine 10 mg tab [Active]; citalopram 20 mg tab [Active]; abacavir-lamivudine 600-300 mg oral tab [Active]; - PMHx: 20:30 CHF; COPD; HIV; Hypertension; Back pain; Hypercholesterolemia; as6 - PSHx: 20:30 Total abdominal hysterectomy; as6 - Immunization history:: Client reports receiving the 2nd dose of the Covid vaccine, Flu vaccine is up to date. - Social history:: Smoking status: Patient denies any tobacco usage or history of. Screenin:34 Abuse screen: Denies threats or abuse. Denies injuries from another. Nutritional as6 screening: No deficits noted. Tuberculosis screening: No symptoms or risk factors identified. Fall Risk None identified. 20:51 Fall Risk Fall in past 12 months (25 points). Gait- Weak (10 pts.). ja4 Assessment: 20:34 Respiratory: Airway is patent Respiratory effort is even, as6 20:51 General: Behavior is calm, cooperative, appropriate for age. Pain: Denies pain. Neuro: ja4 No deficits noted. Cardiovascular: Rhythm is irregular. Vital Signs: 20:27 BP 117 / 69; Pulse 111; Resp 20 S; Temp 98.7(O); Pulse Ox 96% on R/A; Weight 47.63 kg as6 (R); Height 5 ft. 3 in. (160.02 cm) (R); Pain 0/10; 20:54 BP 128 / 74; Pulse 101; Resp 27; Pulse Ox 97% on R/A; ja4 22:03 BP 123 / 77; Pulse 102; Resp 27; Pulse Ox 100% on R/A; bm7 20:27 Body Mass Index 18.60 (47.63 kg, 160.02 cm) as6 ED Course: 19:31 Patient arrived in ED. bp1 20:26 Triage completed. as6 20:34 Arm band placed on. as6 20:34 Patient has correct armband on for positive identification. as6 20:46 Max Rider, RN is Primary Nurse. ja4 20:51 No provider procedures requiring assistance completed. ja4 20:52 Chi Holder PA is PHCP. cp 20:52 Alexys Yarbrough MD is Attending Physician. cp 21:37 Basic Metabolic Panel Sent. bm7 21:37 CBC with Diff Sent. bm7 21:37 LFT's Sent. bm7 21:37 Magnesium Sent. bm7 21:37 NT PRO-BNP Sent. bm7 21:37 PT-INR Sent. bm7 21:37 Troponin HS Sent. bm7 22:20 Notified ED physician of a critical lab result(s). Potassium 2.9, Trop 498.7. ll3 22:23 XRAY Chest (1 view) In Process Unspecified. EDMS 22:26 Strep Sent. bm7 22:26 Influenza Screen (a \\T\\ B) Sent. bm7 22:26 COVID-19 SARS RT PCR (Document "Date of Onset" if Symptomatic) Sent. bm7 10/24 00:25 CT Chest Abdomen Pelvis W/O Contrast In Process Unspecified. EDMS 00:41 Blood Culture Adult (2) Sent. ja4 00:41 Lactate Sent. ja4 01:05 Jay Crane is Hospitalizing Provider. cp 01:10 Prince Loera MD is Hospitalizing Provider. cp Administered Medications: 10/23 22:44 Drug: Potassium Chloride 20 mEq Route: IV; Rate: 250 ml/hr; Site: right antecubital; ja4 10/24 01:33 Drug: Ciprofloxacin 400 mg Volume: 200 ml; Route: IVPB; Infused Over: 60 mins; Site: [facility] right antecubital; 01:34 Drug: Potassium Effervescent Tablet 50 mEq Route: PO; ja4 01:52 Drug: Lactated Ringers Solution 500 ml Route: IV; Rate: bolus; Site: right antecubital; ja4 02:19 Drug: metroNIDAZOLE 500 mg Volume: 100 ml; Route: IVPB; Infused Over: 30 mins; Site: [facility] right antecubital; 03:34 Drug: Lactated Ringers Solution 1000 ml Route: IV; Rate: 100 ml/hr; Site: right ja antecubital; Medication: 10/23 20:51 VIS not applicable for this client. ja4 Outcome: 10/24 01:07 Decision to Hospitalize by Provider. cp 05:45 Patient left the ED. ja4 Signatures: Dispatcher [employer] EDND Chi Holder PA PA cp Paniauga, Brittany bp1 McCarthy, Brittany, RN RN bm7 David Dean RN RN as6 Jeannie Wilkerson RN RN ll3 Max Rider RN RN ja4
[2021-10-24] MEDS ORDERED: POTASSIUM 25 MEQ EFFERV TAB ONE (01:14)
[2021-10-24] MEDS ORDERED: CIPROFLOXACIN 400mg IV 400 MG/200 ML BAG IV ONE (01:16)
[2021-10-24] MEDS ORDERED: METRONIDAZOLE 500mg IVPB 500 MG/100 ML BAG IV ONE (01:17)
[2021-10-24] MEDS ORDERED: Ringers Lactate 1,000 ML IV ONE (01:59)
--- NOTE | 2021-10-24 02:18 | P.HP ---
Certification for Inpatient Patient admitted to: Inpatient With expected LOS: >2 Midnights Patient will require the following post-hospital care: None Practitioner: I am a practitioner with admitting privileges, knowledge of patient current condition, hospital course, and medical plan of care. Services: Services provided to patient in accordance with Admission requirements found in Title 42 Section 412.3 of the Code of Federal Regulations Patient History Date of Service: 10/24/21 Reason for admission: Colitis, sepsis History of Present Illness: 56-year-old female with history of HIV, chronic diastolic congestive heart failure, COPD, hypertension, hyperlipidemia presents to the emergency department for weakness, diarrhea. She reports for the last 5 days she has had large amounts of watery stools reporting more than 10 episodes of diarrhea per day. On 09/26/2021 she was seen in the emergency department and given a prescription for amoxicillin she reports that she did take the amoxicillin but did not finish her prescription. Further evaluation in the emergency department revealed labs which were significant for leukocytosis, acute kidney injury, hypokalemia, metabolic acidosis, mild elevations in AST/ALT/alk phos, elevated high- sensitivity troponin procalcitonin. Patient meets criteria for sepsis with SIRS criteria including leukocytosis, tachycardia, tachypnea lactate was 0.8, no hypotension was noted. Patient's presentation and work-up concerning for C. difficile she had a CT of her chest abdomen and pelvis without contrast which showed acute colitis pattern. Patient started on antibiotics in ED, C. difficile pending will admit for further evaluation and management. Allergies No Known Drug Allergies Allergy (Verified 11/01/15 11:29) Unknown NKA Allergy (Uncoded 03/07/16 13:58) Unknown No Known Allergies Allergy (Uncoded 03/06/16 14:51) Unknown Home Medications: Amitriptyline HCl 1 tab PO BEDTIME 11/02/15 ALPRAZolam [Xanax*] 1 mg PO TID 01/11/18 Fluticasone [Flovent Hfa 110*] 2 sprays IH BID 01/11/18 Gabapentin 100 mg PO TID 01/11/18 Ibuprofen [Ibu] 600 mg PO Q6H PRN 01/11/18 Nystatin 5 ml PO QID 01/11/18 Zolpidem Tartrate 10 mg PO BEDTIME PRN 01/11/18 Atorvastatin Calcium [Lipitor] 40 mg PO DAILY #30 tablet 01/15/18 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 -: safety pin removal from right lung Psychosocial/ Personal History: Pt lives at home alone - Family History Father -: Heart disease Notes: of [place] Sister -: Heart disease Notes: of [place] - Social History Smoking Status: Never smoker Alcohol use: No CD- Drugs: No Caffeine use: Yes Place of Residence: Home Review of Systems 10-point ROS is otherwise unremarkable Respiratory: Shortness of Breath Gastrointestinal: Diarrhea, As per HPI Physical Examination - Physical Exam General: Alert, In no apparent distress, Oriented x3 HEENT: Atraumatic, PERRLA, Other (MM dry), EOMI, Sclerae nonicteric Neck: Supple, 2+ carotid pulse no bruit, No LAD, Without JVD or thyroid abnormality Respiratory: Clear to auscultation bilaterally, Normal air movement Cardiovascular: Regular rate/rhythm, Normal S1 S2 Capillary refill: <2 Seconds Gastrointestinal: Normal bowel sounds, No tenderness Musculoskeletal: No tenderness Integumentary: No rashes Neurological: Normal speech, Normal strength at 5/5 x4 extr, Normal tone, Normal affect - Studies Laboratory Data (last 24 hrs) 10/23/21 21:30: PT 15.0 H, INR 1.36 10/23/21 21:30: WBC 23.00 H*, Hgb 11.1 L, Hct 33.0 L, Plt Count 215 10/23/21 21:30: Sodium 134 L, Potassium 2.9 L*, BUN 64 H, Creatinine 1.85 H, Glucose 110 H, Magnesium 2.0 D, Total Bilirubin 0.3, AST 153 H, ALT 81 H, Alkaline Phosphatase 134 H Microbiology Data (last 24 hrs): 10/23/21 22:22 Nasopharnyx Influenza Type A Antigen Screen - Final 10/23/21 22:22 Nasopharnyx Influenza Type B Antigen Screen - Final 10/23/21 22:22 Throat Group A Streptococcus Rapid Screen - Final Assessment and Plan - Plan Assessment: Sepsis secondary to colitissuspect C. difficile Elevated troponinhistory CAD/chronic diastolic CHF Acute kidney injury Elevated aminotransferase levels COPD HIV Hypertension Hyperlipidemia Plan: Sepsis secondary to colitissuspect C. difficile: There is criteria present leukocytosis, tachycardia, tachypnea. Lactic acid 0.8 no hypotension currently. Given recent use of antibiotics, leukocytosis and frequent watery diarrhea suspect C. difficile colitis continue with antibiotics p.o. vancomycin/IV Flagyl await results from stool studies. May need abx adjusted if c. diff negative. Elevated troponinhistory CAD/chronic diastolic CHF: Suspect demand ischemia related to C. difficile, dehydration/diarrhea. Trend troponins, monitor on telemetry, obtain echocardiogram. Cardiology consulted. Patient denies any chest pain at this time. Acute kidney injury: Suspect related to sepsis, dehydration, diarrhea. Continue IV fluids nephrology consult in place. Elevated aminotransferase levels: Suspect secondary to sepsis, monitor CMP daily. CT without acute abdominal findings aside from colitis. COPD: As needed neb treatments. HIV: Continue home meds. Hypertension: Continue home meds Hyperlipidemia: hold statin given elevated LFTs, restart when appropriate. DVT PPX: Lovenox Code status: full Discharge Plan: Home Plan to discharge in: 72 Hours - Advance Directives Does patient have a Living Will: No Does patient have a Durable POA for Healthcare: No - Code Status/Comfort Care Code Status Assessed: Yes (Full code) Critical Care: No Time Spent Managing Pts Care (In Minutes): 70
[2021-10-24] MEDS ORDERED: ONDANSETRON 4 MG/2 ML VIAL IV PRN (02:23)
[2021-10-24] MEDS: Ringers Lactate 1,000 ML IV SCH ×2 (02:23→08:31)
[2021-10-24 03:22] VITALS: BMI 18.6
[2021-10-24 03:43] LABS: Absolute Lymphocytes (CBC) 0.7 K/uL (0.7-4.9); Lymphocytes % 3.1 % (15.3-44.8); MCV 100.9 fL (80-100); MPV 8.8 fL (7.6-11.3); RBC Red Blood Cell Count 2.78 M/uL (3.86-4.86)
[2021-10-24 04:00] LABS: Bilirubin Total 0.3 mg/dL (0.2-1.0); Magnesium 1.9 mg/dL (1.8-2.4); Potassium 3.7 mmol/L (3.5-5.1); Protein, Total 7.8 g/dL (6.4-8.2)
[2021-10-24 04:01] LABS: Troponin High Sensitivity 455.7 pg/mL (<58.9)
[2021-10-24] MEDS ORDERED: VANCOMYCIN ORAL SOLN 250 MG/5 ML OSYR PO SCH (06:00)
[2021-10-24] MEDS: Levofloxacin 750mg IV 750 MG/150 ML BAG IV SCH (08:31)
[2021-10-24] MEDS: ENOXAPARIN 40 MG/0.4 ML SQ SCH (08:31)
[2021-10-24] MEDS: ASPIRIN EC 81 MG TAB PO SCH (08:31)
[2021-10-24] MEDS ORDERED: ACETAMINOPHEN 325 MG TABLET PO PRN (09:56)
[2021-10-24] MEDS: VANCOMYCIN ORAL SOLN 250 MG/5 ML OSYR PO SCH ×2 (11:55→17:17)
[2021-10-24] MEDS: METRONIDAZOLE 500mg IVPB 500 MG/100 ML BAG IV SCH ×2 (11:55→16:03)
--- NOTE | 2021-10-24 13:07 | RAD REPORT ---
EXAM DESCRIPTION: CT - Chest Abd Pelvis Wo Con - 10/24/2021 6:47 am CLINICAL HISTORY: 56 years Female shortness of breath, diarrhea TECHNIQUE: Contiguous axial images obtained through the chest, abdomen, and pelvis without IV contra st administration. Coronal and sagittal reformatted images provided. This CT exam was performed according to our departmental dose-optimization program, which includes on e or more of the following dose reduction techniques: automated exposure control, adjustment of the m A and/or kV according to patient size, and/or use of iterative reconstruction technique. COMPARISON: CT scan of the abdomen and pelvis dated 06/23/2020 FINDINGS: Increased interstitial markings in the lungs congested with chronic lung disease. No focal airspace infiltrate, pleural effusion, or pneumothorax. The central airways are patent. The heart is normal in size without pericardial effusion. The aorta and central pulmonary vasculature are normal in caliber. No lymphadenopathy in the chest. The unenhanced liver, biliary tree, gallbladder, pancreas, spleen, adrenal glands, kidneys, urinary b ladder, and osseous structures demonstrate no acute findings. Prior hysterectomy. There is mild diffuse inflammation of the cecum and ascending colon. No evidence of acute appendiciti s. No bowel obstruction, pneumatosis, free intraperitoneal air, or abscess. Trace fluid in the right paracolic gutter. IMPRESSION: Findings the lungs suggestive of chronic lung disease. No focal airspace infiltrate. Mild proximal colitis could be infectious or inflammatory. No bowel obstruction or perforation. No other acute findings in the chest, abdomen, or pelvis. Electronically signed by: Charlotte Storm MD 10/24/2021 12:46 AM CDT Due to temporary technical issues with the PACS/Fluency reporting system, reports are being signed by the in house radiologists without review as a courtesy to insure prompt reporting. The interpreting radiologist is fully responsible for the content of the report.
[2021-10-24] MEDS ORDERED: PNEUMOCOCCAL VACCINE 0.5 ML IMVAC ONE (15:00)
--- NOTE | 2021-10-24 17:20 | P.CNS ---
Date of Consult: 10/24/21 Reason for Consult: TAIWO Requesting Physician: Prince Tressa Loera Chief Complaint: Colitis, sepsis History of Present Illness: 56-year-old female with history of HIV, chronic diastolic congestive heart failure, COPD, hypertension, hyperlipidemia presents to the emergency department for weakness, diarrhea. She reports for the last 5 days she has had large amounts of watery stools reporting more than 10 episodes of diarrhea per day. On 09/26/2021 she was seen in the emergency department and given a prescription for amoxicillin she reports that she did take the amoxicillin but did not finish her prescription. Further evaluation in the emergency department revealed labs which were significant for leukocytosis, acute kidney injury, hypokalemia, metabolic acidosis, mild elevations in AST/ALT/alk phos, elevated high- sensitivity troponin procalcitonin. Patient meets criteria for sepsis with SIRS criteria including leukocytosis, tachycardia, tachypnea lactate was 0.8, no hypotension was noted. Patient's presentation and work-up concerning for C. difficile she had a CT of her chest abdomen and pelvis without contrast which showed acute colitis pattern. Patient started on antibiotics in ED, C. difficile pending will admit for further evaluation and management. 20:24 Chief complaint: Patient states: I feel like i can't catch my breath sister states, she as6 has been weak and had Diarrhea for the last 4 days. she feels short of breath. Coronavirus screen: Vaccine status: Patient reports receiving the 2nd dose of the covid vaccine. Ebola Screen: No symptoms or risks identified at this time. Initial Sepsis Screen: Does the patient meet any 2 criteria? No. Patient's initial sepsis screen is negative. Does the patient have a suspected source of infection? No. Patient's initial sepsis screen is negative. Risk Assessment: Do you want to hurt yourself or someone else? Patient reports no desire to harm self or others. 20:24 Method Of Arrival: EMS: [facility] as6 20:24 Acuity: GIULIANO 3 as6 20:27 Onset of symptoms was October 23, 2021. Care prior to arrival: Medication(s) given: as6 Albuterol Neb x 1, sister states she took it this evening. It helps for a while but then she gets tired easily. Allergies No Known Drug Allergies Allergy (Verified 11/01/15 11:29) Unknown NKA Allergy (Uncoded 03/07/16 13:58) Unknown No Known Allergies Allergy (Uncoded 03/06/16 14:51) Unknown Home medications list reviewed: Yes Home Medications: Amitriptyline HCl 1 tab PO BEDTIME 11/02/15 ALPRAZolam [Xanax*] 1 mg PO TID 01/11/18 Fluticasone [Flovent Hfa 110*] 2 sprays IH BID 01/11/18 Gabapentin 100 mg PO TID 01/11/18 Ibuprofen [Ibu] 600 mg PO Q6H PRN 01/11/18 Nystatin 5 ml PO QID 01/11/18 Zolpidem Tartrate 10 mg PO BEDTIME PRN 01/11/18 Atorvastatin Calcium [Lipitor] 40 mg PO DAILY #30 tablet 01/15/18 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 -: safety pin removal from right lung Psychosocial/ Personal History: Pt lives at home alone - Family History Father Medical History: Heart disease Notes: of [place] Sister Medical History: Heart disease Notes: of [place] - Social History Smoking Status: Unknown if ever smoked Alcohol use: No CD- Drugs: No Caffeine use: Yes Place of Residence: Home Review of Systems 10-point ROS is otherwise unremarkable General: Weakness Gastrointestinal: Abdominal Pain Physical Examination Temp Pulse Resp BP Pulse Ox 98.7 F 86 16 99/63 93 10/24/21 16:00 10/24/21 16:00 10/24/21 16:00 10/24/21 16:00 10/24/21 16:00 General: In no apparent distress, Oriented x3, Cooperative HEENT: Atraumatic Neck: Supple Respiratory: Clear to auscultation bilaterally Cardiovascular: No edema, Regular rate/rhythm Gastrointestinal: Non-distended, Tenderness Musculoskeletal: No clubbing, No contractures Integumentary: No rashes, No cyanosis Neurological: Normal speech Laboratory Data (last 24 hrs) 10/23/21 21:30: PT 15.0 H, INR 1.36 10/23/21 21:30: WBC 23.00 H*, Hgb 11.1 L, Hct 33.0 L, Plt Count 215 10/23/21 21:30: Sodium 134 L, Potassium 2.9 L*, BUN 64 H, Creatinine 1.85 H, Glucose 110 H, Magnesium 2.0 D, Total Bilirubin 0.3, AST 153 H, ALT 81 H, Alkaline Phosphatase 134 H Imagings Data: EXAM DESCRIPTION: CT - Chest Abd Pelvis Wo Con - 10/24/2021 6:47 am CLINICAL HISTORY: 56 years Female shortness of breath, diarrhea TECHNIQUE: Contiguous axial images obtained through the chest, abdomen, and pelvis without IV contrast administration. Coronal and sagittal reformatted images provided. This CT exam was performed according to our departmental dose-optimization program, which includes one or more of the following dose reduction techniques: automated exposure control, adjustment of the mA and/or kV according to patient size, and/or use of iterative reconstruction technique. COMPARISON: CT scan of the abdomen and pelvis dated 06/23/2020 FINDINGS: Increased interstitial markings in the lungs congested with chronic lung disease. No focal airspace infiltrate, pleural effusion, or pneumothorax. The central airways are patent. The heart is normal in size without pericardial effusion. The aorta and central pulmonary vasculature are normal in caliber. No lymphadenopathy in the chest. The unenhanced liver, biliary tree, gallbladder, pancreas, spleen, adrenal glands, kidneys, urinary bladder, and osseous structures demonstrate no acute findings. Prior hysterectomy. There is mild diffuse inflammation of the cecum and ascending colon. No evidence of acute appendicitis. No bowel obstruction, pneumatosis, free intraperitoneal air, or abscess. Trace fluid in the right paracolic gutter. IMPRESSION: Findings the lungs suggestive of chronic lung disease. No focal airspace infiltrate. Mild proximal colitis could be infectious or inflammatory. No bowel obstruction or perforation. No other acute findings in the chest, abdomen, or pelvis. EXAM DESCRIPTION: [facility] Single View10/23/2021 10:21 pm CLINICAL HISTORY: Shortness of breath COMPARISON: 2020 FINDINGS: Mild chronic appearing bilateral interstitial lung opacities without change The lungs appear clear of acute infiltrate. The heart is normal size IMPRESSION: No acute abnormalities displayed Conclusions/Impression: TAIWO likely due to hypovolemia and possibly complicated by ibuprofen therapy -No NSAIDs -Continue LR at this time but consider a bicarb gtt if persistent acidosis Hyponatremia -Adjust IVF as needed Hypokalemia -Replete as ordered NAG Acidosis -Continue LR at this time but consider a bicarb gtt if persistent acidosis Hypotension in the setting of hypovolemia -Continue IVF -IVF bolus as needed Diastolic CHF, chronic -Daily weight Moderate malnutrition with sarcopenia -Advance diet as tolerated/ indicated Anemia in chronic illness -Monitor H&H Proximal Colitis -Continue Levaquin but adjust the renal dosing as the renal fx improves -Continue Metronidazol -C.diff pending Thank you kindly for the referral.
--- NOTE | 2021-10-24 22:40 | CON ---
Date of Consultation: 10/24/2021 Reason For Consultation: Elevated troponin. History Of Present Illness: This is a 56-year-old female with history of DICTATION ENDS HERE. /TAMI Voice ID: [id number] Report ID: [id number]
--- NOTE | 2021-10-24 22:49 | CON ---
Date of Consultation: 10/24/2021 Reason For Consultation: Elevated troponin. History Of Present Illness: A 56-year-old female with history of HIV, diastolic heart failure, COPD, hypertension, dyslipidemia, presented with generalized weakness and diarrhea, more than 10 episodes every day. Troponin was checked, was elevated slightly. Patient declines having any chest pain or c ardiac history. Past Medical History: As outlined above in the HPI. Medications: Refer reconciliation sheet for detailed list. Allergies: NO KNOWN DRUG ALLERGIES. Family History: No premature coronary artery disease or cancer. Social History: Does not smoke or drink. Does not use any drugs. Review of Systems: All systems reviewed are negative except as mentioned in HPI. Physical Examination: Vital Signs: Temperature is 98.7, pulse 86, breathing 16, blood pressure is 99/63, saturating 93% on room air. General: Pleasant middle-aged female, in no apparent distress. Head and Neck: Pupils are equal, reactive to light. Intact eye movements. No JVD. No cervical lym phadenopathy. Neck: Supple. Thyroid is not enlarged. Lungs: Clear to auscultation bilaterally. No rhonchi, rales, or crackles. No accessory muscle use. Heart: Regular rate and rhythm. No extra sounds. Abdomen: Soft, nontender. Bowel sounds positive. No organomegaly. No masses or hernia. No rigidi ty or rebound. Extremities: No edema, clubbing, cyanosis. Intact pulses. Skin: No rash. No lesions. Neurologic: Alert, awake, oriented x3. No acute focal deficits appreciated. Investigations: Her troponin was initially 498, then 455, then 327. Creatinine was 1.85, then 1.38. Assessment And Recommendations: 1.Elevated troponin. EKG without acute specific abnormalities. This is likely demand ischemia. Cr eatinine was elevated. She is severely dehydrated and hypotensive. To correct all the above, we jose l reassess. Also, obtain echocardiogram to evaluate for wall motion abnormalities and once her gastr oenteritis clears up completely, especially if she has C difficile, then we will plan for an outpatie nt stress test on her. 2.Acute renal failure due to aggressive diarrhea. IV fluid management is being implemented and lainey saunders is already improving. SR/MODL Voice ID: [id number] Report ID: [id number]
[2021-10-25] MEDS: METRONIDAZOLE 500mg IVPB 500 MG/100 ML BAG IV SCH ×3 (00:44→15:58)
[2021-10-25] MEDS: Ringers Lactate 1,000 ML IV SCH (00:44)
[2021-10-25] MEDS: VANCOMYCIN ORAL SOLN 250 MG/5 ML OSYR PO SCH ×4 (00:44→18:03)
[2021-10-25 03:44] LABS: Absolute Lymphocytes (CBC) 0.6 K/uL (0.7-4.9); Hematocrit 26.4 % (36.0-45.0); MCV 99.9 fL (80-100); MPV 8.6 fL (7.6-11.3); RBC Red Blood Cell Count 2.64 M/uL (3.86-4.86)
[2021-10-25 03:57] LABS: Albumin 1.8 g/dL (3.4-5.0); Bilirubin Total 0.4 mg/dL (0.2-1.0); Magnesium 1.8 mg/dL (1.8-2.4); Potassium 3.2 mmol/L (3.5-5.1); Protein, Total 7.3 g/dL (6.4-8.2)
--- NOTE | 2021-10-25 07:45 | ECHO ---
HEIGHT: 5 ft 3 in WEIGHT: 105 lb 0 oz DATE OF STUDY: 10/24/[address]: Jay Crane NP 2-DIMENSIONAL: YES M.MODE: YES DOPPLER: YES COLOR FLOW: YES TDS: NO PORTABLE: YES DEFINITY: NO BUBBLE STUDY: NO DIAGNOSIS: SEPSIS, ELEVATED TROPONIN CARDIAC HISTORY: CATHERIZATION: SURGERY: PROSTHETIC VALVE: PACEMAKER: MEASUREMENTS (cm) DIASTOLIC (NORMALS) SYSTOLIC (NORMALS) IVSd 2.1 (0.6-1.2) LA Diam 2.9 (1.9-4.0) LVEF 63% LVIDd 3.1 (3.5-5.7) LVIDs 2.1 (2.0-3.5) %FS 33% LVPWd 1.4 (0.6-1.2) Ao Diam 2.4 (2.0-3.7) 2 DIMENSIONAL ASSESSMENT: RIGHT ATRIUM: NORMAL LEFT ATRIUM: NORMAL RIGHT VENTRICLE: NORMAL LEFT VENTRICLE: SEVERE LEFT VENTRICULAR HYPERTROPHY TRICUSPID VALVE: MITRAL VALVE: PULMONIC VALVE: NOT SEEN AORTIC VALVE: PERICARDIAL EFFUSION: NONE AORTIC ROOT: NORMAL LEFT VENTRICULAR WALL MOTION: NORMAL DOPPLER/COLOR FLOW: SEE BELOW COMMENTS: NORMAL LEFT VENTRICULAR EJECTION FRACTION 60-65%. NORMAL WALL MOTION. SEVERE CONCENTRIC LEFT VENTRICULAR HYPERTROPHY. AT LEAST MODERATE AORTIC STENOSIS IS PRESENT. MILD MITRAL AND TRICUSPID REGURGITATION. TECHNOLOGIST: Tomasa MONREAL
[2021-10-25] MEDS: ASPIRIN EC 81 MG TAB PO SCH (07:58)
[2021-10-25] MEDS: ENOXAPARIN 40 MG/0.4 ML SQ SCH (07:58)
[2021-10-25] MEDS ORDERED: POTASSIUM CL 40 MEQ in NA CHLORIDE 0.9% 500 ML IV SCH (08:00)
[2021-10-25] MEDS ORDERED: SODIUM BICARB 50 MEQ/50ML VIAL ONE (10:46)
[2021-10-25] MEDS ORDERED: NACHLORIDE 0.45% 0 ML IV ONE (10:46)
[2021-10-25] MEDS ORDERED: KCL 20 MEQ/100 mL IVPB 0 ML IV ONE (10:47)
[2021-10-25] MEDS ORDERED: POTASS/SODIUM PHOSPHATE 1 PKT POWD.PACK PO ONE (11:00)
[2021-10-25] MEDS: NA BICARB IV SCH ×3 (11:12)
[2021-10-25] MEDS: KCL IV SCH ×3 (11:12)
[2021-10-25] MEDS: NACHLORIDE IV SCH ×3 (11:12)
--- NOTE | 2021-10-25 14:44 | P.PN ---
Subjective Date of Service: 10/25/21 Chief Complaint: Colitis, sepsis Subjective: Improving (Patient is doing significantly better. Her diarrhea are less frequent. She is tolerating solid diet without complications.) Physical Examination - Vital Signs Temperature: 97.3 F Blood Pressure: 109/70 Pulse: 79 Respirations: 16 Pulse Ox (%): 95 - Physical Exam General: In no apparent distress, Cooperative, Cachectic HEENT: Atraumatic, Normocephalic Respiratory: Clear to auscultation bilaterally, Normal air movement Cardiovascular: Normal pulses, Regular rate/rhythm, Normal S1 S2 Gastrointestinal: Soft and benign, Non-distended Musculoskeletal: No clubbing, No swelling, No contractures Neurological: Normal speech, Sensation intact, Cranial nerves 3-12 intact - Studies Microbiology Data (last 24 hrs): 10/23/21 23:57 Blood - Blood Anaerobic Blood Culture - Final Assessment And Plan - Current Problems (Diagnosis) (1) Severe sepsis Current Visit: Yes Status: Acute (2) Acute colitis Current Visit: Yes Status: Acute (3) CAD (coronary artery disease), [place] coronary artery Current Visit: No Status: Acute (4) HIV (human immunodeficiency virus infection) Onset Date: 01/18/16 Current Visit: No Status: Acute (5) HTN (hypertension) Onset Date: 01/18/16 Current Visit: No Status: Acute - Plan Assessment Patient is a 56-year-old -[place] female past medical history of HIV, hypertension and hyperlipidemia. She is currently admitted after she presented with diarrhea. She met criteria for severe sepsis on admission. She is being treated empirically for C. difficile colitis. Suspected severe C. difficile diarrhea TAIWO Elevated troponin Hypotension HIV Coronary disease Plan: Patient is drastically better with supportive care Will continue oral vancomycin and IV Flagyl for severe C. difficile infection Her diet has been advanced today He also has elevated troponin, which cardiology attributed to demand ischemia There is a 2D echo that was ordered. We will follow results. Outpatient stress test has been recommended Patient was also seen by nephrology for her acute kidney injury. Appreciate recommendation from nephrology Hold off antihypertensive due to borderline blood pressure She will need to participate with therapy. PT/OT have been ordered DVT prophylaxis
[2021-10-25] MEDS ORDERED: ZOLPIDEM TARTRATE 10 MG TABLET PO PRN (14:48)
[2021-10-25] MEDS ORDERED: POTASSIUM PHOS 30 MM in NA CHLORIDE 0.9% 500 ML IV ONE (16:00)
--- NOTE | 2021-10-25 16:23 | P.PN ---
Date of Service: 10/25/21 Nephrology note: (S) Pt denies any abdominal pain or diarrhea, remains on IVF, no other acute complaints (O) Vitals reviewed in the EMR General: In no apparent distress, Oriented x3, Cooperative HEENT: Atraumatic, hair loss Neck: Supple Respiratory: Clear to auscultation bilaterally Cardiovascular: No edema, Regular rate/rhythm Gastrointestinal: Soft, ND, NT Musculoskeletal: No clubbing, No contractures Integumentary: No rashes, No cyanosis Neurological: Normal speech, alert, responsive Laboratory Data (last 24 hrs) Reviewed in the EMR Conclusions/Impression: Stage II TAIWO 2nd to pre-renal state, vol depletion, NSAIDs, other -Cr level downward trending nicely, cont IVF hydration. Hypokalemia -Receiving IV KCL this AM, added KCL to maintenance IVF NAG Acidosis -Bicarb deficit persists so will switch LR IVF to 1/2 NS with 75 meq of sodium bicarb Hypotension in the setting of hypovolemia -Continue IVF, BP improved. Isma Garcia MD, PADMINI
--- NOTE | 2021-10-25 17:15 | EKG ---
Test Date: 2021-10-23 Test Time: 20:45:12 Academic Director: MEASUREMENT RESULTS: Intervals: Rate: 106 VT: 134 QRSD: 86 QT: 324 QTc: 430 [place]: P: 68 VT: 134 QRS: 55 T: 137 INTERPRETIVE STATEMENTS: Sinus tachycardia Biatrial enlargement Left ventricular hypertrophy with repolarization abnormality Cannot rule out Septal infarct, age undetermined Abnormal ECG Compared to ECG 01/12/2018 09:56:41 Early repolarization now present Myocardial infarct finding now present Sinus rhythm no longer present ST (T wave) deviation no longer present Possible ischemia no longer present Electronically Signed On 10-25-21 17:07:18 CDT by Nick Duggan
[2021-10-25] MEDS: NYSTATIN 500,000 UNIT/5 ML UDC PO SCH ×2 (18:03→21:01)
[2021-10-25] MEDS ORDERED: AMITRIPTYLINE 50 MG TAB PO SCH (21:00)
[2021-10-25] MEDS ORDERED: HOME MED 1 EA UNK (Amitriptyline Hcl [Amitriptyline Hcl] 100 MG Tablet) PO SCH (21:00)
[2021-10-25] MEDS: ALPRAZOLAM 1 MG TABLET PO SCH (21:00)
[2021-10-25] MEDS: FLUTICASONE 110 MCG/PUFF 12 GM INH IH SCH (21:00)
[2021-10-26] MEDS: VANCOMYCIN ORAL SOLN 250 MG/5 ML OSYR PO SCH ×4 (00:06→18:00)
[2021-10-26] MEDS: METRONIDAZOLE 500mg IVPB 500 MG/100 ML BAG IV SCH ×3 (00:08→17:14)
[2021-10-26] MEDS: NA BICARB IV SCH ×3 (02:40)
[2021-10-26] MEDS: KCL IV SCH ×3 (02:40)
[2021-10-26] MEDS: NACHLORIDE IV SCH ×3 (02:40)
[2021-10-26 06:20] LABS: Absolute Lymphocytes (CBC) 0.7 K/uL (0.7-4.9); Hematocrit 28.3 % (36.0-45.0); Lymphocytes % 7.4 % (15.3-44.8); MCV 101.3 fL (80-100); MPV 8.9 fL (7.6-11.3); RBC Red Blood Cell Count 2.79 M/uL (3.86-4.86)
[2021-10-26 06:23] LABS: Albumin 1.8 g/dL (3.4-5.0); Bilirubin Total 0.3 mg/dL (0.2-1.0); Magnesium 1.7 mg/dL (1.8-2.4); Potassium 4.2 mmol/L (3.5-5.1); Protein, Total 7.5 g/dL (6.4-8.2)
[2021-10-26] MEDS ORDERED: Magnesium Sulfate 2gm IVPB 2 G/50 ML BAG IV ONE (07:13)
[2021-10-26 08:51] LABS: Platelet Estimate ADEQ; Smudge Cells PRESENT; Toxic Granulation PRESENT
[2021-10-26 08:52] LABS: Anisocytosis SLIGHT; Blood Morphology Comment NOTED (NOT SEEN); Macrocytosis SLIGHT
[2021-10-26] MEDS: FLUTICASONE 110 MCG/PUFF 12 GM INH IH SCH ×2 (09:00→21:25)
[2021-10-26] MEDS: ALPRAZOLAM 1 MG TABLET PO SCH (09:00)
[2021-10-26] MEDS: Levofloxacin 750mg IV 750 MG/150 ML BAG IV SCH (10:26)
[2021-10-26] MEDS: ASPIRIN EC 81 MG TAB PO SCH (10:27)
[2021-10-26] MEDS: ENOXAPARIN 40 MG/0.4 ML SQ SCH (10:27)
[2021-10-26] MEDS: ATORVASTATIN 40 MG TAB PO SCH (10:27)
[2021-10-26] MEDS: NYSTATIN 500,000 UNIT/5 ML UDC PO SCH ×4 (10:28→21:27)
[2021-10-26 13:05] LABS: C.diff Antigen/Toxin Ag pos : Tox pos (NEG : NEG)
--- NOTE | 2021-10-26 13:39 | P.PN ---
Nephrology note: (S) Pt lethargic this AM and arouses briefly but falls back to asleep, apparently received some Ambien last night. RN reports that pt was OOB earlier this AM to commode. (O) Vitals reviewed in the EMR General: NAD HEENT: Atraumatic, hair loss Neck: Supple Respiratory: Clear to auscultation bilaterally Cardiovascular: No edema, Regular rate/rhythm Gastrointestinal: Soft, ND, NT Musculoskeletal: No clubbing, No contractures Integumentary: No rashes, No cyanosis Neurological: Lethargic but arouses with physical stimuli but then falls back asleep, follows simple step commands briefly but was not able to converse Laboratory Data (last 24 hrs) Reviewed in the EMR Conclusions/Impression: Stage II TAIWO 2nd to pre-renal state, vol depletion, NSAIDs, other -resolved now -Cr level downward trended nicely Hypokalemia -Resolved NAG Acidosis -Bicarb deficit improved but persists, will monitor and if persists or is recurrent would recommend checking urine AG Hypotension in the setting of hypovolemia -resolved -Mild hypernatremia Since lethargic this AM and PO intake poor, will place temp on D5W IVF with some bicarb added Isma Garcia MD, PADMINI
--- NOTE | 2021-10-26 14:36 | P.PN ---
Subjective Date of Service: 10/26/21 Chief Complaint: Colitis, sepsis Subjective: Improving (She is positive today. It seems that she was given 10 mg of Ambien at night and possibly Xanax. I called her daughter and I was told that the patient does not routinely take those medications. This case was discussed during MDR. The above medications have been removed from her MAR.) Physical Examination - Vital Signs Temperature: 97.0 F Blood Pressure: 148/74 Pulse: 74 Respirations: 18 Pulse Ox (%): 93 - Physical Exam General: Cachectic, Other (Drowsy) HEENT: Atraumatic, Normocephalic Respiratory: Clear to auscultation bilaterally, Normal air movement Cardiovascular: No edema, Normal pulses, Regular rate/rhythm, Normal S1 S2 Gastrointestinal: Normal bowel sounds, Soft and benign, Non-distended Musculoskeletal: No clubbing, No swelling, No contractures - Studies Microbiology Data (last 24 hrs): 10/23/21 22:22 Throat Culture & Sensitivity - Final NORMAL UPPER RESPIRATORY KARLA GROWN. Assessment And Plan - Current Problems (Diagnosis) (1) Severe sepsis Current Visit: Yes Status: Acute (2) Acute colitis Current Visit: Yes Status: Acute (3) CAD (coronary artery disease), [place] coronary artery Current Visit: No Status: Acute (4) HIV (human immunodeficiency virus infection) Onset Date: 01/18/16 Current Visit: No Status: Acute (5) HTN (hypertension) Onset Date: 01/18/16 Current Visit: No Status: Acute - Plan Assessment Patient is a 56-year-old -[place] female past medical history of HIV, hypertension and hyperlipidemia. She is currently admitted after she presented with diarrhea. She met criteria for severe sepsis on admission. She tested positive for C. difficile colitis. She has been doing well. Severe sepsis Suspected severe C. difficile diarrhea TAIWO-resolved Elevated troponin Hypotension HIV Coronary disease Plan: Patient continues to improve Continue oral vancomycin and IV Flagyl for severe C. difficile infection She is tolerating her diet w/o issues Avoid sedating medications She also has elevated troponin, which cardiology attributed to demand ischemia There is a 2D echo that was ordered. TTE without wall motion. Outpatient stress test has been recommended Hold off antihypertensive due to borderline blood pressure She will need to participate with therapy. PT/OT have been ordered DVT prophylaxis Patient can be discharged tomorrow if she is feeling well. She lives alone and couldn't be discharged today due to drowsiness.
[2021-10-26] MEDS: ENSURE HIGH PROTEIN 237 ML CAN PO SCH (21:28)
[2021-10-26] MEDS: Banana Flakes/T-Galactooligos 1 Dose Packet PO SCH (21:28)
[2021-10-27] MEDS: METRONIDAZOLE 500mg IVPB 500 MG/100 ML BAG IV SCH ×2 (01:04→09:00)
[2021-10-27] MEDS: VANCOMYCIN ORAL SOLN 250 MG/5 ML OSYR PO SCH ×5 (06:00→19:57)
[2021-10-27 06:02] LABS: Absolute Lymphocytes (CBC) 0.5 K/uL (0.7-4.9); Hematocrit 27.7 % (36.0-45.0); Lymphocytes % 11.4 % (15.3-44.8); MCV 100.8 fL (80-100); MPV 8.2 fL (7.6-11.3); RBC Red Blood Cell Count 2.75 M/uL (3.86-4.86)
[2021-10-27 06:16] LABS: Albumin 1.8 g/dL (3.4-5.0); Bilirubin Total 0.2 mg/dL (0.2-1.0); Magnesium 1.9 mg/dL (1.8-2.4); Protein, Total 7.5 g/dL (6.4-8.2)
[2021-10-27] MEDS: FLUTICASONE 110 MCG/PUFF 12 GM INH IH SCH ×2 (09:00→19:47)
[2021-10-27] MEDS: ENSURE HIGH PROTEIN 237 ML CAN PO SCH ×2 (09:00→19:48)
[2021-10-27] MEDS: NYSTATIN 500,000 UNIT/5 ML UDC PO SCH ×4 (09:00→19:48)
[2021-10-27] MEDS: Banana Flakes/T-Galactooligos 1 Dose Packet PO SCH ×2 (09:00→19:47)
[2021-10-27] MEDS: ENOXAPARIN 40 MG/0.4 ML SQ SCH (09:06)
[2021-10-27] MEDS: ASPIRIN EC 81 MG TAB PO SCH (09:06)
[2021-10-27] MEDS: ATORVASTATIN 40 MG TAB PO SCH (09:07)
--- NOTE | 2021-10-27 09:31 | P.PN ---
Subjective Date of Service: 10/27/21 Chief Complaint: Colitis, sepsis Subjective: Improving (Patient is doing well no new complaints wants to go home denies any abdominal pain or diarrhea) Review of Systems General: Weakness Respiratory: Shortness of Breath Physical Examination - Vital Signs Temperature: 97.7 F Blood Pressure: 139/79 Pulse: 78 Respirations: 18 Pulse Ox (%): 96 - Physical Exam General: Alert, In no apparent distress, Oriented x3 Respiratory: Clear to auscultation bilaterally, Normal air movement, Diminished - Studies Microbiology Data (last 24 hrs): 10/23/21 22:22 Throat Culture & Sensitivity - Final NORMAL UPPER RESPIRATORY KARLA GROWN. Assessment And Plan - Current Problems (Diagnosis) (1) C. difficile colitis Current Visit: Yes Status: Acute Plan: Patient is 56 years of age admitted with C. difficile colitisAssessment/is currently doing well no diarrhea history of HIV hypertension hyperlipidemia said positive for C. difficile doing much better planing of shortness of breath on oxygen will evaluate off oxygen patient does not smoke at room air pulse ox possible plan for discharge today/DC IV Flagyl We will need to treat her with oral vancomycin for another 7 days patient's chest x-ray is clear labs reviewed electrolyte abnormality has been corrected renal function normal
--- NOTE | 2021-10-27 22:40 | P.PN ---
Date of Service: 10/27/21 Vital Signs Temp Pulse Resp BP Pulse Ox 97.5 F 90 16 126/76 93 10/27/21 16:00 10/27/21 16:00 10/27/21 16:00 10/27/21 16:00 10/27/21 16:00 Medications Acetaminophen (Acetaminophen 325 Mg Tablet) 650 mg PO Q6H PRN PRN Reason: TEMP > 101' F Last Admin: 10/24/21 10:30 Dose: 650 mg Aspirin (Aspirin Ec 81 Mg Tab) 81 mg PO DAILY [facility] Last Admin: 10/27/21 09:06 Dose: 81 mg Atorvastatin Calcium (Atorvastatin 40 Mg Tab) 40 mg PO DAILY [facility] Last Admin: 10/27/21 09:07 Dose: 40 mg Enoxaparin Sodium (Enoxaparin 40 Mg/0.4 Ml) 40 mg SQ DAILY [facility] Last Admin: 10/27/21 09:06 Dose: 40 mg Fluticasone Propionate (Fluticasone 110 Mcg/Puff 12 Gm Inh) 220 mcg IH BID [facility] Last Admin: 10/27/21 19:47 Dose: 1 puff Nutritional Formula (Ensure High Protein 237 Ml Can) 237 ml PO BID [facility] Last Admin: 10/27/21 19:48 Dose: 237 ml Nystatin (Nystatin 500,000 Unit/5 Ml Udc) 500,000 unit PO QID [facility] Last Admin: 10/27/21 19:48 Dose: 500,000 unit Ondansetron HCl (Ondansetron 4 Mg/2 Ml Vial) 4 mg IV Q6HP PRN PRN Reason: NAUSEA / VOMITING Sodium Chloride (Flush Normal Saline 10 Ml) 10 ml IV BID [facility] Last Admin: 10/27/21 19:48 Dose: 10 ml Vancomycin HCl (Vancomycin Oral Soln 250 Mg/5 Ml [place]) 125 mg PO Q6HR [facility]; Protocol Stop: 11/03/21 06:01 Last Admin: 10/27/21 19:57 Dose: 125 mg Microbiology Results 10/23/21 22:22 Throat Culture & Sensitivity - Final NORMAL UPPER RESPIRATORY KARLA GROWN. 10/23/21 23:57 Blood - Blood Aerobic Blood Culture - Preliminary No growth in 24 hours. 10/23/21 23:57 Blood - Blood Anaerobic Blood Culture - Final 10/23/21 22:22 Nasopharnyx Influenza Type A Antigen Screen - Final 10/23/21 22:22 Nasopharnyx Influenza Type B Antigen Screen - Final 10/23/21 22:22 Throat Group A Streptococcus Rapid Screen - Final Assessment/ Plan: Nephrology No dyspnea No chest pain Feeling better No acute events overnight Vitals, medications, blood work and imaging reviewed in the chart. General: In no apparent distress, Oriented x3, Cooperative HEENT: Atraumatic Neck: Supple Respiratory: Clear to auscultation bilaterally Cardiovascular: No edema, Regular rate/rhythm Gastrointestinal: Non-distended, Tenderness Musculoskeletal: No clubbing, No contractures Integumentary: No rashes, No cyanosis Neurological: Normal speech Laboratory Data (last 24 hrs) 10/23/21 21:30: PT 15.0 H, INR 1.36 10/23/21 21:30: WBC 23.00 H*, Hgb 11.1 L, Hct 33.0 L, Plt Count 215 10/23/21 21:30: Sodium 134 L, Potassium 2.9 L*, BUN 64 H, Creatinine 1.85 H, Glucose 110 H, Magnesium 2.0 D, Total Bilirubin 0.3, AST 153 H, ALT 81 H, Alkaline Phosphatase 134 H Imagings Data: EXAM DESCRIPTION: CT - Chest Abd Pelvis Wo Con - 10/24/2021 6:47 am CLINICAL HISTORY: 56 years Female shortness of breath, diarrhea TECHNIQUE: Contiguous axial images obtained through the chest, abdomen, and pelvis without IV contrast administration. Coronal and sagittal reformatted images provided. This CT exam was performed according to our departmental dose-optimization program, which includes one or more of the following dose reduction techniques: automated exposure control, adjustment of the mA and/or kV according to patient size, and/or use of iterative reconstruction technique. COMPARISON: CT scan of the abdomen and pelvis dated 06/23/2020 FINDINGS: Increased interstitial markings in the lungs congested with chronic lung disease. No focal airspace infiltrate, pleural effusion, or pneumothorax. The central airways are patent. The heart is normal in size without pericardial effusion. The aorta and central pulmonary vasculature are normal in caliber. No lymphadenopathy in the chest. The unenhanced liver, biliary tree, gallbladder, pancreas, spleen, adrenal glands, kidneys, urinary bladder, and osseous structures demonstrate no acute findings. Prior hysterectomy. There is mild diffuse inflammation of the cecum and ascending colon. No evidence of acute appendicitis. No bowel obstruction, pneumatosis, free intraperitoneal air, or abscess. Trace fluid in the right paracolic gutter. IMPRESSION: Findings the lungs suggestive of chronic lung disease. No focal airspace infiltrate. Mild proximal colitis could be infectious or inflammatory. No bowel obstruction or perforation. No other acute findings in the chest, abdomen, or pelvis. EXAM DESCRIPTION: [facility] Single View10/23/2021 10:21 pm CLINICAL HISTORY: Shortness of breath COMPARISON: 2020 FINDINGS: Mild chronic appearing bilateral interstitial lung opacities without change The lungs appear clear of acute infiltrate. The heart is normal size IMPRESSION: No acute abnormalities displayed Conclusions/Impression: TAIWO likely due to hypovolemia and possibly complicated by ibuprofen therapy -No NSAIDs Hyponatremia -Encourage nutrition Hypokalemia -Replete prn NAG Acidosis -Monitor level Hypotension in the setting of hypovolemia -IVF bolus as needed Diastolic CHF, chronic -Daily weight Moderate malnutrition with sarcopenia -Advance diet as tolerated/ indicated Anemia in chronic illness -Monitor H&H Proximal Colitis -Continue abx
[2021-10-28] MEDS: VANCOMYCIN ORAL SOLN 250 MG/5 ML OSYR PO SCH ×2 (00:41→06:44)
[2021-10-28 01:50] VITALS: O2SAT 92
[2021-10-28 08:50] VITALS: BP 155/89; TEMP 97
--- NOTE | 2021-10-28 08:58 | P.DS ---
Admission Date: 10/24/21 Discharge Date: 10/28/21 Reason for Admission: Colitis, sepsis - Problems (1) C. difficile colitis Current Visit: Yes Status: Acute Brief History of Present Illness: Patient is 56 years of age admitted with C. difficile colitis also is HIV positive Hospital Course: Patient was septic on admission with acute renal failure all that resolved with IV fluids and out to have Clostridium difficile colitis was treated with p.o. vancomycin and IV Flagyl. CT of the abdomen below IMPRESSION: Findings the lungs suggestive of chronic lung disease. No focal airspace infiltrate. Mild proximal colitis could be infectious or inflammatory. No bowel obstruction or perforation. No other acute findings in the chest, abdomen, or pelvis. The time of discharge patient alert oriented responsive cooperative no distress ambulating to the bathroom is to go home tolerating a diet vital signs all stable labs unremarkable renal function is normal to be discharged home on p.o. vancomycin Vital Signs/Physical Exam: Temp Pulse Resp BP Pulse Ox 97.0 F 96 H 16 155/89 H 92 10/28/21 08:00 10/28/21 08:00 10/28/21 08:00 10/28/21 08:00 10/28/21 08:00 Laboratory Data at Discharge: WBC 4.70 K/uL (4.3-10.9) 10/27/21 05:42 Hgb 9.5 g/dL (12.0-15.0) L 10/27/21 05:42 Hct 27.7 % (36.0-45.0) L 10/27/21 05:42 Plt Count 253 K/uL (152-406) 10/27/21 05:42 PT 15.0 SECONDS (9.5-12.5) H 10/23/21 21:30 INR 1.36 10/23/21 21:30 Sodium 140 mmol/L (136-145) D 10/27/21 05:42 Potassium 4.0 mmol/L (3.5-5.1) 10/27/21 05:42 BUN 11 mg/dL (7-18) 10/27/21 05:42 Creatinine 0.79 mg/dL (0.55-1.3) 10/27/21 05:42 Glucose 114 mg/dL (74-106) H 10/27/21 05:42 Phosphorus 2.9 mg/dL (2.5-4.9) 10/26/21 05:39 Magnesium 1.9 mg/dL (1.8-2.4) 10/27/21 05:42 Total Bilirubin 0.2 mg/dL (0.2-1.0) 10/27/21 05:42 AST 45 U/L (15-37) H 10/27/21 05:42 ALT 35 U/L (12-78) 10/27/21 05:42 Alkaline Phosphatase 87 U/L (45-117) 10/27/21 05:42 Triglycerides 160 mg/dL (<150) H 10/24/21 02:39 Cholesterol 84 mg/dL (<200) 10/24/21 02:39 HDL Cholesterol 11 mg/dL (40-60) L 10/24/21 02:39 Cholesterol/HDL Ratio 7.64 10/24/21 02:39 Home Medications: Amitriptyline HCl 1 tab PO BEDTIME 11/02/15 ALPRAZolam [Xanax*] 1 mg PO TID 01/11/18 Fluticasone [Flovent Hfa 110*] 2 sprays IH BID 01/11/18 Gabapentin 100 mg PO TID 01/11/18 Ibuprofen [Ibu] 600 mg PO Q6H PRN 01/11/18 Nystatin 5 ml PO QID 01/11/18 Zolpidem Tartrate 10 mg PO BEDTIME PRN 01/11/18 Atorvastatin Calcium [Lipitor] 40 mg PO DAILY #30 tablet 01/15/18 Vancomycin Oral Soln [Vancocin HCl*] 5 ml PO Q6HR 7 Days #140 ml 10/27/21 New Medications: Vancomycin Oral Soln [Vancocin HCl*] 5 ml PO Q6HR 7 Days #140 ml Followup: NONE,NONE [Primary Care Provider] -
[2021-10-28] MEDS: NYSTATIN 500,000 UNIT/5 ML UDC PO SCH (09:00)
[2021-10-28] MEDS: ENSURE HIGH PROTEIN 237 ML CAN PO SCH (09:00)
[2021-10-28] MEDS: Banana Flakes/T-Galactooligos 1 Dose Packet PO SCH (09:00)
[2021-10-28] MEDS: ATORVASTATIN 40 MG TAB PO SCH (09:03)
[2021-10-28] MEDS: ENOXAPARIN 40 MG/0.4 ML SQ SCH (09:03)
[2021-10-28] MEDS: ASPIRIN EC 81 MG TAB PO SCH (09:04)
--- NOTE | 2021-10-28 23:19 | P.PN ---
Date of Service: 10/28/21 Vital Signs Temp Pulse Resp BP Pulse Ox 97.0 F 96 H 16 155/89 H 92 10/28/21 08:00 10/28/21 08:00 10/28/21 08:00 10/28/21 08:00 10/28/21 08:00 Microbiology Results 10/23/21 22:22 Throat Culture & Sensitivity - Final NORMAL UPPER RESPIRATORY KARLA GROWN. 10/23/21 23:57 Blood - Blood Aerobic Blood Culture - Preliminary No growth in 24 hours. 10/23/21 23:57 Blood - Blood Anaerobic Blood Culture - Final 10/23/21 22:22 Nasopharnyx Influenza Type A Antigen Screen - Final 10/23/21 22:22 Nasopharnyx Influenza Type B Antigen Screen - Final 10/23/21 22:22 Throat Group A Streptococcus Rapid Screen - Final Assessment/ Plan: Nephrology No dyspnea No chest pain Feeling better No acute events overnight Vitals, medications, blood work and imaging reviewed in the chart. General: In no apparent distress, Oriented x3, Cooperative HEENT: Atraumatic Neck: Supple Respiratory: Clear to auscultation bilaterally Cardiovascular: No edema, Regular rate/rhythm Gastrointestinal: Non-distended, Tenderness Musculoskeletal: No clubbing, No contractures Integumentary: No rashes, No cyanosis Neurological: Normal speech Laboratory Data (last 24 hrs) 10/23/21 21:30: PT 15.0 H, INR 1.36 10/23/21 21:30: WBC 23.00 H*, Hgb 11.1 L, Hct 33.0 L, Plt Count 215 10/23/21 21:30: Sodium 134 L, Potassium 2.9 L*, BUN 64 H, Creatinine 1.85 H, Glucose 110 H, Magnesium 2.0 D, Total Bilirubin 0.3, AST 153 H, ALT 81 H, Alkaline Phosphatase 134 H Imagings Data: EXAM DESCRIPTION: CT - Chest Abd Pelvis Wo Con - 10/24/2021 6:47 am CLINICAL HISTORY: 56 years Female shortness of breath, diarrhea TECHNIQUE: Contiguous axial images obtained through the chest, abdomen, and pelvis without IV contrast administration. Coronal and sagittal reformatted images provided. This CT exam was performed according to our departmental dose-optimization program, which includes one or more of the following dose reduction techniques: automated exposure control, adjustment of the mA and/or kV according to patient size, and/or use of iterative reconstruction technique. COMPARISON: CT scan of the abdomen and pelvis dated 06/23/2020 FINDINGS: Increased interstitial markings in the lungs congested with chronic lung disease. No focal airspace infiltrate, pleural effusion, or pneumothorax. The central airways are patent. The heart is normal in size without pericardial effusion. The aorta and central pulmonary vasculature are normal in caliber. No lymphadenopathy in the chest. The unenhanced liver, biliary tree, gallbladder, pancreas, spleen, adrenal glands, kidneys, urinary bladder, and osseous structures demonstrate no acute findings. Prior hysterectomy. There is mild diffuse inflammation of the cecum and ascending colon. No evidence of acute appendicitis. No bowel obstruction, pneumatosis, free intraperitoneal air, or abscess. Trace fluid in the right paracolic gutter. IMPRESSION: Findings the lungs suggestive of chronic lung disease. No focal airspace infiltrate. Mild proximal colitis could be infectious or inflammatory. No bowel obstruction or perforation. No other acute findings in the chest, abdomen, or pelvis. EXAM DESCRIPTION: [facility] Single View10/23/2021 10:21 pm CLINICAL HISTORY: Shortness of breath COMPARISON: 2020 FINDINGS: Mild chronic appearing bilateral interstitial lung opacities without change The lungs appear clear of acute infiltrate. The heart is normal size IMPRESSION: No acute abnormalities displayed Conclusions/Impression: TAIWO likely due to hypovolemia and possibly complicated by ibuprofen therapy -No NSAIDs Hyponatremia -Encourage nutrition Hypokalemia -Replete prn NAG Acidosis -Monitor level Hypotension in the setting of hypovolemia -IVF bolus as needed Diastolic CHF, chronic -Daily weight Moderate malnutrition with sarcopenia -Advance diet as tolerated/ indicated Anemia in chronic illness -Monitor H&H Proximal Colitis -Continue abx
== END 2021-10-28 11:56 | disposition home or self-care (01) | DRG 871 ==
LOC: ER 19:25 → ERHOLD 10-24 01:38 → 4TH 10-24 04:11
PROVIDERS: ADMIT Internal Medicine; ATTEND Internal Medicine Sleep Medicine
DX: A41.9 Sepsis, unspecified organism (principal); R65.21 Severe sepsis with septic shock; I50.32 Chronic diastolic (congestive) heart failure; N17.9 Acute kidney failure, unspecified; E87.2 Acidosis; A04.72 Enterocolitis due to Clostridium difficile, not specified as recurrent; E87.1 Hypo-osmolality and hyponatremia; E44.0 Moderate protein-calorie malnutrition; Z68.1 Body mass index [BMI] 19.9 or less, adult; E87.0 Hyperosmolality and hypernatremia; I11.0 Hypertensive heart disease with heart failure; E78.5 Hyperlipidemia, unspecified; D63.8 Anemia in other chronic diseases classified elsewhere; E86.1 Hypovolemia; M62.84 Sarcopenia; J44.9 Chronic obstructive pulmonary disease, unspecified; I25.10 Atherosclerotic heart disease of native coronary artery without angina pectoris; E87.6 Hypokalemia; R77.8 Other specified abnormalities of plasma proteins; Z21 Asymptomatic human immunodeficiency virus [HIV] infection status; Z60.2 Problems related to living alone; Z95.5 Presence of coronary angioplasty implant and graft; Z79.899 Other long term (current) drug therapy; Z90.710 Acquired absence of both cervix and uterus; Z20.822 Contact with and (suspected) exposure to COVID-19
CPT/HCPCS: 36415; 71045; 71250; 74176; 80048; 80053; 80061; 80076; 81003; 81015; 82947; 83605; 83735; 83880; 84100; 84145; 84484; 85025; 85610; 87040; 87045; 87046; 87070; 87081; 87177; 87209; 87324; 87804; 93005; 93306; 96374; 96375; 97116; 97161; 97165; 99284; J0744; J1650; J3475; J3480; J7040; J7120; U0003

== ENCOUNTER 2022-02-13 11:15 | Emergency (ER) | payer OTHER ==
--- OUTSIDE RECORDS SUMMARY | 2022-02-13 11:28 | XMS REPORT | Continuity of Care Document ---
:1965 Author Organization [facility] t Address [address] [place] [address] Care Team Providers Name Role Phone Delfino Schumacher [facility], [facility] Primary Care P hysician LEE HENDERSON Attending Clinician Unavailable Osman Ware RN Attending Clinician Unavailable Doctor Unassigned, [place] Attending Clinician Unavailable Kasandra Cha Attending Clinician JENNIFER Attending Clinician Unavailable Dean_Robert Attending Clinician Unavailable Pgy2 Attending Clinician Unavailable Gely Weber MD Attending Clinician GELY WEBER Attending Clinician Unavailable Enedina Mccarty MD Attending Clinician Lj Paredes RN Attending Clinician Unavailable BILLY VALERIO Attending Clinician Unavailable Toby Donohue MD Attending Clinician Delores Garcia MD, Tressa Schwartz Attending Clinician Billy Valerio MD Attending Clinician Evette Dunn MA Attending Clinician Unavailable MIKE BLUE Attending Clinician Unavailable Mike Blue NP Attending Clinician Mikael Quiroz Attending Clinician LJ LIANG Attending Clinician Unavailable Lj Mcguire Attending Clinician MARGARET NUNEZ Attending Clinician Unavailable Margaret Nunez DO Attending Clinician Anisa Morris MDHAg Attending Clinician ANISA MORRISHAg Attending Clinician Unavailable Terri Harris Attending Clinician Dawn Mendoza Attending Clinician Tumgiovanni_A Attending Clinician Unavailable Josse Steele Attending Clinician JOSSE JUÁREZ Attending Clinician Unavailable JENNIFER Admitting Clinician Unavailable Av Admitting Clinician Unavailable Tressa ESTRELLA JR Admitting Clinician Unavailable Delores Garcia MD, Tressa Schwartz Admitting Clinician MIKE BLUE Admitting Clinician Unavailable Sammi Admitting Clinician Unavailable Payers Payer Name Policy Type Policy Number Effective Date Expiration Date [facility] [id number] 2016 MEDICAID 00:00:00 [facility] [id number] 2020 (MEDICARE 00:00:00 REPLACEMENT HMO) Problems Condition Condition Condition Status Onset Resolution Last Treating Co mments Source Name Details Category Date Date Treatment Clinician Date LGSIL Pap LGSIL Pap Disease Active Uni vers smear of smear of 5-17 ity of vagina vagina 00:00: [address] Murmur, Murmur, Disease Active Univers cardiac cardiac 4-30 ity of 00:00: [address] Bacteremia Bacteremia Disease Active U nivers 4-29 ity of 00:00: [address] Medically Medically Disease Active Uni vers noncomplia noncomplia 7-23 it y of nt nt 00:00: [address] Thrush Thrush Disease Active Univers 7-23 ity of 00:00: [address] Obesity Obesity Disease Active Univers (BMI (BMI 4-20 ity of 30-39.9) 30-39.9) 00:00: [address] Genital Genital Disease Active Univers warts warts -15 ity of 00:00: [address] H/O: H/O: Disease Active Univers hysterecto hysterecto 7-15 it y of my my 00:00: [address] 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 1-19 it y of ciency ciency 00:00: [place] virus virus 00 Medical infection) infection) Br anch Allergies, Adverse Reactions, Alerts Allergy Allergy Status Severity Reaction(s) Onset Inactive Treating Comm ents Source Name Type Date Date Clinician NO KNOWN Drug Active Univers ALLERGIE Class ity of S [facility] Social History Social Habit Start Date Stop Date Quantity Comments Source Exposure to 2021-07-08 2021-07-18 Not sure [facility]-CoV-2 00:00:00 15:42:00 [facility] (event) [place] Alcohol intake 2021-07-18 2021-07-18 Current [facility] 00:00:00 00:00:00 non-drinker of [facility] [place] [facility] alcohol (finding) [place] Tobacco use and 2020-07-26 2020-07-26 Smokeless tobacco Un iversity of exposure 00:00:00 00:00:00 non-user [facility] Sex Ass[birth year] At [birth year] Universit y of 00:00:00 00:00:00 [facility] Smoking Status Start Date Stop Date Source Never smoked tobacco [facility] Medications Ordered Filled Start Stop Current Ordering Indication Dosage Frequency Signature Comments Components Source Medication Medication Date Date Medication? Clinician (SIG) Name Name AMLODIPINE No BESYLATE 8-18 10MG TAB 00:00: 00 AMLODIPINE No BESYLATE 8-18 10MG TAB 00:00: 00 TAKE BY No MOUTH 6 7-20 MILLILITERS 00:00: 4 TIMES A 00 DAY FOR 14 DAYS Dose No Unknown 7-20 00:00: 00 TAKE BY 0 No MOUTH 6 7-20 MILLILITERS 00:00: 4 TIMES A 00 DAY FOR 14 DAYS Dose 2021- No Unknown 7-20 00:00: 00 losartan No 1mg 100 6-27 mg-hydrochl 00:00: orothiazide 00 12.5 mg tablet atorvastati 2-0 No 1mg n 40 mg 6-27 tablet 00:00: 00 amlodipine 2022-0 No 1mg 10 mg 6-27 tablet 00:00: 00 allopurinol 2022-0 No 1mg 100 mg 6-27 tablet 00:00: 00 cyclobenzap 2022-0 No 1mg rine 5 mg 6-27 tablet 00:00: 00 ibuprofen 2022-0 No 1mg 400 mg 6-27 tablet 00:00: 00 fluticasone 2022-0 No 1mcg/ac propionate 6-27 tuation 50 00:00: mcg/actuati 00 on nasal spray,suspe nsion &lt 2-0 No 6-27 00:00: 00 &lt 2022-0 No 6-27 00:00: 00 &lt 2022-0 No 6-27 00:00: 00 &lt 2022-0 No 6-27 00:00: 00 Dose 2022-0 No Unknown 6-27 00:00: 00 losartan 2022-0 No 1mg 100 6-27 mg-hydrochl 00:00: orothiazide 00 12.5 mg tablet atorvastati 2-0 No 1mg n 40 mg 6-27 tablet 00:00: 00 amlodipine 2-0 No 1mg 10 mg 6-27 tablet 00:00: 00 allopurinol 2022-0 No 1mg 100 mg 6-27 tablet 00:00: 00 cyclobenzap 2022-0 No 1mg rine 5 mg 6-27 tablet 00:00: 00 ibuprofen 2022-0 No 1mg 400 mg 6-27 tablet 00:00: 00 fluticasone 2022-0 No 1mcg/ac propionate 6-27 tuation 50 00:00: mcg/actuati 00 on nasal spray,suspe nsion &lt 2022-0 No 6-27 00:00: 00 &lt 2022-0 No 6-27 00:00: 00 &lt 2022-0 No 6-27 00:00: 00 &lt 2022-0 No 6-27 00:00: 00 Dose 2022-0 No Unknown 6-27 00:00: 00 losartan 2022-0 No 1mg 100 6-27 mg-hydrochl 00:00: orothiazide 00 12.5 mg tablet atorvastati 2-0 No 1mg n 40 mg 6-27 tablet 00:00: 00 amlodipine 2-0 No 1mg 10 mg 6-27 tablet 00:00: 00 allopurinol 2-0 No 1mg 100 mg 6-27 tablet 00:00: 00 cyclobenzap 2-0 No 1mg rine 5 mg 6-27 tablet 00:00: 00 ibuprofen 2-0 No 1mg 400 mg 6-27 tablet 00:00: 00 fluticasone 2-0 No 1mcg/ac propionate - tuation 50 00:00: mcg/actuati 00 on nasal spray,suspe nsion &lt 2-0 No 6-27 00:00: 00 &lt 2022-0 No 6-27 00:00: 00 &lt 2022-0 No 6-27 00:00: 00 &lt 2022-0 No 6-27 00:00: 00 Dose 2022-0 No Unknown 6-27 00:00: 00 &lt 2022-0 No 6-24 00:00: 00 &lt 2022-0 No 6-24 00:00: 00 &lt 2022-0 No 6-24 00:00: 00 mirtazapine 2-0 No 1mg 45 mg 6-22 tablet 00:00: 00 mirtazapine 2022-0 No 1mg 45 mg 6-22 tablet 00:00: 00 mirtazapine 2022-0 No 1mg 45 mg 6-22 tablet 00:00: 00 &lt 2022-0 No 6-17 00:00: 00 &lt 2022-0 No 6-17 00:00: 00 &lt 2022-0 No 6-17 00:00: 00 &lt 2022-0 No 6-17 00:00: 00 &lt 2022-0 No 6-17 00:00: 00 &lt 2022-0 No 6-17 00:00: 00 imiquimod 2-0 No 1% 3.75 % 5-23 topical 00:00: cream in a 00 pump fluconazole 2-0 No 1mg 150 mg 5-23 tablet 00:00: 00 fluticasone 2022-0 No 1mcg/ac propionate 5-23 tuation 50 00:00: mcg/actuati 00 on nasal spray,suspe nsion imiquimod 0 No 1% 3.75 % 5-23 topical 00:00: cream in a 00 pump fluconazole 2021-0 No 1mg 150 mg 5-23 tablet 00:00: 00 fluticasone 2021-0 No 1mcg/ac propionate 5-23 tuation 50 00:00: mcg/actuati 00 on nasal spray,suspe nsion imiquimod 0 No 1% 3.75 % 5-23 topical 00:00: cream in a 00 pump fluconazole 2021-0 No 1mg 150 mg 5-23 tablet 00:00: 00 fluticasone 2021-0 No 1mcg/ac propionate 5-23 tuation 50 00:00: mcg/actuati 00 on nasal spray,suspe nsion sulfamethox Yes [id number] 1{tbl} Take 1 Univers azole-trime 5-05 tablet by ity of thoprim 00:00: mouth [place] 800-160 mg 00 daily. Medical per tablet Branch sulfamethox Yes [id number] 1{tbl} Take 1 Univers azole-trime 5-05 tablet by ity of thoprim 00:00: mouth [place] 800-160 mg 00 daily. Medical per tablet Branch sulfamethox Yes [id number] 1{tbl} Take 1 Univers azole-trime 5-05 tablet by ity of thoprim 00:00: mouth [place] 800-160 mg 00 daily. Medical per tablet Branch sulfamethox Yes [id number] 1{tbl} Take 1 Univers azole-trime 5-05 tablet by ity of thoprim 00:00: mouth [place] 800-160 mg 00 daily. Medical per tablet Branch ALPRAZOLAM Yes Take by [facility] ers ORAL 5-04 mouth. ity of 17:22: [place] [address] Medical Branch ALPRAZOLAM Yes Take by [facility] ORAL 5-04 mouth. ity of 17:22: [place] [address] Medical Branch ALPRAZOLAM Yes Take by [facility] ORAL 5-04 mouth. ity of 17:22: [place] [address] Medical Branch ALPRAZOLAM Yes Take by [facility] ers ORAL 5-04 mouth. ity of 17:22: [place] 53 Medical Branch efavirenz 2021-0 Yes [id number] 600mg Take 1 Un inocente 600 mg 5-04 tablet by ity of tablet 00:00: mouth [place] 00 daily. Medical Branch amoxicillin 2021-0 Yes [id number] 1{tbl} Take 1 Univers -clavulanat 5-04 tablet by ity of e 875-125 00:00: mouth [place] mg per 00 every 12 Medical tablet (twelve) Branch hours. lamiVUDine 2021-0 Yes [id number] 150mg Take 1 U nivers 150 mg 5-04 tablet by ity of tablet 00:00: mouth 2 00 (two) Medical times Branch daily. metoprolol 2021-0 Yes [id number] 12.5mg Take 0.5 Univers tartrate 25 5-04 tablets by it y of mg tablet 00:00: mouth 2 00 (two) Medical times Branch daily. nystatin 2021-0 Yes [id number] Take 5 mL Univers 100,000 5-04 by mouth 4 ity of unit/mL 00:00: (four) [place] suspension 00 times Medical daily. Branch efavirenz 2021-0 Yes [id number] 600mg Take 1 Un inocente 600 mg 5-04 tablet by ity of tablet 00:00: mouth [place] 00 daily. Medical Branch amoxicillin 2021-0 Yes [id number] 1{tbl} Take 1 Univers -clavulanat 5-04 tablet by ity of e 875-125 00:00: mouth [place] mg per 00 every 12 Medical tablet (twelve) Branch hours. lamiVUDine 2021-0 Yes [id number] 150mg Take 1 U nivers 150 mg 5-04 tablet by ity of tablet 00:00: mouth 2 00 (two) Medical times Branch daily. metoprolol 2021-0 Yes [id number] 12.5mg Take 0.5 Univers tartrate 25 5-04 tablets by it y of mg tablet 00:00: mouth 2 00 (two) Medical times Branch daily. nystatin 2-0 Yes [id number] Take 5 mL Univers 100,000 5-04 by mouth 4 ity of unit/mL 00:00: (four) [place] suspension 00 times Medical daily. Branch efavirenz 2021-0 Yes [id number] 600mg Take 1 Un inocente 600 mg 5-04 tablet by ity of tablet 00:00: mouth [place] 00 daily. Medical Branch amoxicillin 2021-0 Yes [id number] 1{tbl} Take 1 Univers -clavulanat 5-04 tablet by ity of e 875-125 00:00: mouth [place] mg per 00 every 12 Medical tablet (twelve) Branch hours. lamiVUDine 2-0 Yes [id number] 150mg Take 1 U nivers 150 mg 5-04 tablet by ity of tablet 00:00: mouth 2 00 (two) Medical times Branch daily. metoprolol 2021-0 Yes [id number] 12.5mg Take 0.5 Univers tartrate 25 5-04 tablets by it y of mg tablet 00:00: mouth 2 00 (two) Medical times Branch daily. nystatin 2021-0 Yes [id number] Take 5 mL Univers 100,000 5-04 by mouth 4 ity of unit/mL 00:00: (four) [place] suspension 00 times Medical daily. Branch efavirenz 2021-0 Yes [id number] 600mg Take 1 Un inocente 600 mg 5-04 tablet by ity of tablet 00:00: mouth [place] 00 daily. Medical Branch amoxicillin 2021-0 Yes [id number] 1{tbl} Take 1 Univers -clavulanat 5-04 tablet by ity of e 875-125 00:00: mouth [place] mg per 00 every 12 Medical tablet (twelve) Branch hours. lamiVUDine 2021-0 Yes [id number] 150mg Take 1 U nivers 150 mg 5-04 tablet by ity of tablet 00:00: mouth 2 (two) Medical times Branch daily. metoprolol 2021-0 Yes [id number] 12.5mg Take 0.5 Univers tartrate 25 5-04 tablets by it y of mg tablet 00:00: mouth 2 [place] 00 (two) Medical times Branch daily. nystatin 2021-0 Yes [id number] Take 5 mL Univers 100,000 5-04 by mouth 4 ity of unit/mL 00:00: (four) [place] suspension 00 times Medical daily. Branch ProAir HFA 2021-0 No 2mcg/ac 90 4-11 tuation mcg/actuati 00:00: on aerosol 00 inhaler atorvastati 2021-0 No 1mg n 40 mg 4-11 tablet 00:00: 00 amlodipine 2021-0 No 1mg 10 mg 4-11 tablet 00:00: 00 losartan 2022-0 No 1mg 100 mg 4-11 tablet 00:00: 00 Epzicom 600 2022-0 No 1mg mg-300 mg 4-11 tablet 00:00: 00 citalopram 2022-0 No 1mg 20 mg 4-11 tablet 00:00: 00 loratadine 2022-0 No 1mg 10 mg 4-11 tablet 00:00: 00 allopurinol 2022-0 No 1mg 100 mg 4-11 tablet 00:00: 00 cyclobenzap 2022-0 No 1mg rine 5 mg 4-11 tablet 00:00: 00 mirtazapine 2022-0 No 1mg 45 mg 4-11 tablet 00:00: 00 fluticasone 2022-0 No 1mcg/ac propionate 4-11 tuation 50 00:00: mcg/actuati 00 on nasal spray,suspe nsion ProAir HFA 2-0 No 2mcg/ac 90 4-11 tuation mcg/actuati 00:00: on aerosol 00 inhaler atorvastati 2-0 No 1mg n 40 mg 4-11 tablet 00:00: 00 amlodipine 2022-0 No 1mg 10 mg 4-11 tablet 00:00: 00 losartan 2022-0 No 1mg 100 mg 4-11 tablet 00:00: 00 Epzicom 600 2022-0 No 1mg mg-300 mg 4-11 tablet 00:00: 00 citalopram 2022-0 No 1mg 20 mg 4-11 tablet 00:00: 00 loratadine 2022-0 No 1mg 10 mg 4-11 tablet 00:00: 00 allopurinol 2022-0 No 1mg 100 mg 4-11 tablet 00:00: 00 cyclobenzap 2022-0 No 1mg rine 5 mg 4-11 tablet 00:00: 00 mirtazapine 2022-0 No 1mg 45 mg 4-11 tablet 00:00: 00 fluticasone 2022-0 No 1mcg/ac propionate 4-11 tuation 50 00:00: mcg/actuati 00 on nasal spray,suspe nsion ProAir HFA 2-0 No 2mcg/ac 90 4-11 tuation mcg/actuati 00:00: on aerosol 00 inhaler atorvastati 2-0 No 1mg n 40 mg 4-11 tablet 00:00: 00 amlodipine 2-0 No 1mg 10 mg 4-11 tablet 00:00: 00 losartan 2022-0 No 1mg 100 mg 4-11 tablet 00:00: 00 Epzicom 600 2-0 No 1mg mg-300 mg 4-11 tablet 00:00: 00 citalopram 2022-0 No 1mg 20 mg 4-11 tablet 00:00: 00 loratadine 2-0 No 1mg 10 mg 4-11 tablet 00:00: 00 allopurinol 2-0 No 1mg 100 mg 4-11 tablet 00:00: 00 cyclobenzap 2-0 No 1mg rine 5 mg 4-11 tablet 00:00: 00 mirtazapine 2-0 No 1mg 45 mg 4-11 tablet 00:00: 00 fluticasone 2-0 No 1mcg/ac propionate 4-11 tuation 50 00:00: mcg/actuati 00 on nasal spray,suspe nsion Dose 2021-0 No Unknown 3-23 00:00: 00 Dose 2022-0 No Unknown 3-23 00:00: 00 Dose 2-0 No Unknown 3-23 00:00: 00 Dose 2-0 No Unknown 3-23 00:00: 00 Dose 2-0 No Unknown 3-23 00:00: 00 Dose 2-0 No Unknown 3-23 00:00: 00 Dose 2-0 No Unknown 3-23 00:00: 00 Dose 2022-0 No Unknown 3-23 00:00: 00 Dose 2022-0 No Unknown 3-23 00:00: 00 Dose 2022-0 No Unknown 3-23 00:00: 00 Dose 2022-0 No Unknown 3-23 00:00: 00 Dose 2022-0 No Unknown 3-23 00:00: 00 Dose 2-0 No Unknown 3-23 00:00: 00 Dose 2022-0 No Unknown 3-23 00:00: 00 Dose 2022-0 No Unknown 3-23 00:00: 00 Dose 2022-0 No Unknown 3-23 00:00: 00 Dose 2022-0 No Unknown 3-23 00:00: 00 Dose 2022-0 No Unknown 3-23 00:00: 00 Dose 2022-0 No Unknown 3-23 00:00: 00 Dose 2022-0 No Unknown 3-23 00:00: 00 Dose 2022-0 No Unknown 3-23 00:00: 00 Dose 2022-0 No Unknown 3-23 00:00: 00 Dose 2022-0 No Unknown 3-23 00:00: 00 Dose 2022-0 No Unknown 3-23 00:00: 00 Dose 2022-0 No Unknown 3-23 00:00: 00 Dose 2022-0 No Unknown 3-23 00:00: 00 Dose 2022-0 No Unknown 3-23 00:00: 00 Dose 2022-0 No Unknown 3-23 00:00: 00 Dose 2022-0 No Unknown 3-23 00:00: 00 Dose 2022-0 No Unknown 3-23 00:00: 00 Dose 2022-0 No Unknown 3-23 00:00: 00 Dose 2022-0 No Unknown 3-23 00:00: 00 Dose 2022-0 No Unknown 3-23 00:00: 00 Dose 2022-0 No Unknown 3-23 00:00: 00 Dose 2022-0 No Unknown 3-23 00:00: 00 Dose 2022-0 No Unknown 3-23 00:00: 00 Dose 2022-0 No Unknown 3-21 00:00: 00 Dose 2022-0 No Unknown 3-21 00:00: 00 Dose 2022-0 No Unknown 3-21 00:00: 00 Dose 2022-0 No Unknown 3-21 00:00: 00 Dose 2022-0 No Unknown 3-21 00:00: 00 Dose 2022-0 No Unknown 3-21 00:00: 00 Dose 2022-0 No Unknown 3-21 00:00: 00 Dose 2022-0 No Unknown 3-21 00:00: 00 Dose 2022-0 No Unknown 3-21 00:00: 00 Dose 2022-0 No Unknown 3-21 00:00: 00 Dose 2022-0 No Unknown 3-21 00:00: 00 Dose 2022-0 No Unknown 3-21 00:00: 00 Dose 2022-0 No Unknown 3-21 00:00: 00 Dose 2022-0 No Unknown 3-21 00:00: 00 Dose 2022-0 No Unknown 3-21 00:00: 00 Dose 2022-0 No Unknown 3-20 00:00: 00 Dose 2022-0 No Unknown 3-20 00:00: 00 Dose 2022-0 No Unknown 3-20 00:00: 00 Dose 2022-0 No Unknown 3-20 00:00: 00 Dose 2022-0 No Unknown 3-20 00:00: 00 Dose 2022-0 No Unknown 3-20 00:00: 00 Dose 2022-0 No Unknown 3-16 00:00: 00 Dose 2022-0 No Unknown 3-16 00:00: 00 Dose 2022-0 No Unknown 3-16 00:00: 00 Dose 2022-0 No Unknown 3-16 00:00: 00 Dose 2022-0 No Unknown 3-16 00:00: 00 Dose 2022-0 No Unknown 3-16 00:00: 00 Dose 2022-0 No Unknown 3-16 00:00: 00 Dose 2022-0 No Unknown 3-16 00:00: 00 Dose 2022-0 No Unknown 3-16 00:00: 00 Dose 2022-0 No Unknown 3-15 00:00: 00 Dose 2022-0 No Unknown 3-15 00:00: 00 Dose 2022-0 No Unknown 3-15 00:00: 00 Dose 2022-0 No Unknown 3-15 00:00: 00 Dose 2022-0 No Unknown 3-15 00:00: 00 Dose 2022-0 No Unknown 3-15 00:00: 00 Dose 2022-0 No Unknown 3-15 00:00: 00 Dose 2022-0 No Unknown 3-15 00:00: 00 Dose 2022-0 No Unknown 3-15 00:00: 00 Dose 2022-0 No Unknown 3-15 00:00: 00 Dose 2022-0 No Unknown 3-15 00:00: 00 Dose 2022-0 No Unknown 3-15 00:00: 00 Dose 2022-0 No Unknown 3-15 00:00: 00 Dose 2022-0 No Unknown 3-15 00:00: 00 Dose 2022-0 No Unknown 3-15 00:00: 00 Dose 2022-0 No Unknown 3-15 00:00: 00 Dose 2022-0 No Unknown 3-15 00:00: 00 Dose 2022-0 No Unknown 3-15 00:00: 00 Dose 2022-0 No Unknown 3-15 00:00: 00 Dose 2022-0 No Unknown 3-15 00:00: 00 Dose 2022-0 No Unknown 3-15 00:00: 00 Dose 2022-0 No Unknown 3-15 00:00: 00 Dose 2022-0 No Unknown 3-15 00:00: 00 Dose 2022-0 No Unknown 3-15 00:00: 00 Dose 2022-0 No Unknown 3-15 00:00: 00 Dose 2022-0 No Unknown 3-15 00:00: 00 Dose 2022-0 No Unknown 3-15 00:00: 00 Dose 2022-0 No Unknown 3-15 00:00: 00 Dose 2022-0 No Unknown 3-15 00:00: 00 Dose 2022-0 No Unknown 3-15 00:00: 00 Dose 2022-0 No Unknown 3-15 00:00: 00 Dose 2022-0 No Unknown 3-15 00:00: 00 Dose 2022-0 No Unknown 3-15 00:00: 00 Dose 2022-0 No Unknown 3-15 00:00: 00 Dose 2022-0 No Unknown 3-15 00:00: 00 Dose 2022-0 No Unknown 3-15 00:00: 00 Dose 2022-0 No Unknown 3-15 00:00: 00 Dose 2022-0 No Unknown 3-15 00:00: 00 Dose 2022-0 No Unknown 3-15 00:00: 00 Dose 2022-0 No Unknown 3-15 00:00: 00 Dose 2022-0 No Unknown 3-15 00:00: 00 Dose 2022-0 No Unknown 3-15 00:00: 00 Dose 2022-0 No Unknown 3-15 00:00: 00 Dose 2022-0 No Unknown 3-15 00:00: 00 Dose 2022-0 No Unknown 3-15 00:00: 00 Dose 2022-0 No Unknown 3-15 00:00: 00 Dose 2022-0 No Unknown 3-15 00:00: 00 Dose 2022-0 No Unknown 3-15 00:00: 00 Dose 2022-0 No Unknown 3-15 00:00: 00 Dose 2022-0 No Unknown 3-15 00:00: 00 Dose 2022-0 No Unknown 3-15 00:00: 00 Dose 2022-0 No Unknown 3-15 00:00: 00 Dose 2022-0 No Unknown 3-15 00:00: 00 Dose 2022-0 No Unknown 3-15 00:00: 00 Dose 2022-0 No Unknown 3-15 00:00: 00 Dose 2022-0 No Unknown 3-15 00:00: 00 Dose 2022-0 No Unknown 3-15 00:00: 00 Dose 2022-0 No Unknown 3-15 00:00: 00 Dose 2022-0 No Unknown 3-15 00:00: 00 Dose 2022-0 No Unknown 3-15 00:00: 00 Dose 2022-0 No Unknown 3-15 00:00: 00 Dose 2022-0 No Unknown 3-15 00:00: 00 Dose 2022-0 No Unknown 3-15 00:00: 00 Dose 2022-0 No Unknown 3-15 00:00: 00 Dose 2022-0 No Unknown 3-15 00:00: 00 Dose 2022-0 No Unknown 3-15 00:00: 00 Dose 2022-0 No Unknown 3-15 00:00: 00 Dose 2022-0 No Unknown 3-15 00:00: 00 Dose 2022-0 No Unknown 3-15 00:00: 00 Dose 2022-0 No Unknown 3-15 00:00: 00 Dose 2022-0 No Unknown 3-15 00:00: 00 Dose 2022-0 No Unknown 3-15 00:00: 00 Dose 2022-0 No Unknown 3-15 00:00: 00 Dose 2022-0 No Unknown 3-15 00:00: 00 Dose 2022-0 No Unknown 3-15 00:00: 00 Dose 2022-0 No Unknown 3-15 00:00: 00 Dose 2022-0 No Unknown 3-15 00:00: 00 Dose 2022-0 No Unknown 3-15 00:00: 00 Dose 2022-0 No Unknown 3-15 00:00: 00 Dose 2022-0 No Unknown 3-15 00:00: 00 Dose 2022-0 No Unknown 3-15 00:00: 00 Dose 2022-0 No Unknown 3-15 00:00: 00 Dose 2022-0 No Unknown 3-15 00:00: 00 Dose 2022-0 No Unknown 3-15 00:00: 00 Dose 2022-0 No Unknown 3-15 00:00: 00 Dose 2022-0 No Unknown 3-15 00:00: 00 Dose 2021-0 No Unknown 3-15 00:00: 00 Dose 2021-0 No Unknown 1-26 00:00: 00 fluticasone 2021-0 No 1mcg/ac propionate - tuation 50 00:00: mcg/actuati 00 on nasal spray,suspe nsion Dose 2021-0 No Unknown - 00:00: 00 fluticasone 2021-0 No 1mcg/ac propionate - tuation 50 00:00: mcg/actuati 00 on nasal spray,suspe nsion Dose 2021-0 No Unknown 03-08 00:00: 00 fluticasone 2021-0 No 1mcg/ac propionate 03-08 tuation 50 00:00: mcg/actuati 00 on nasal spray,suspe nsion sulfamethox 2020-02 No 1mg azole 800 2-29 mg-trimetho 00:00: prim 160 mg 00 tablet sulfamethox 2020-02 No 1mg azole 800 2-29 mg-trimetho 00:00: prim 160 mg 00 tablet sulfamethox 2020-02 No 1mg azole 800 2-29 mg-trimetho 00:00: prim 160 mg 00 tablet Dose 2020- No Unknown 2-08 00:00: 00 Dose 2020-1 No Unknown 2-08 00:00: 00 Dose 2020-1 No Unknown 2-08 00:00: 00 Dose 2020-1 No Unknown 2-07 00:00: 00 Dose 2020-1 No Unknown 2-07 00:00: 00 ibuprofen 2020-1 No 1mg 600 mg 2-07 tablet 00:00: 00 tizanidine 2020-1 No 1mg 4 mg tablet 2-07 00:00: 00 fluticasone 2020-1 No 1mcg/ac propionate 2-07 tuation 50 00:00: mcg/actuati 00 on nasal spray,suspe nsion Dose 2020-02 No Unknown 2-07 00:00: 00 Dose 2020-1 No Unknown 2-07 00:00: 00 ibuprofen 2020-1 No 1mg 600 mg 2-07 tablet 00:00: 00 tizanidine 2020-1 No 1mg 4 mg tablet 2-07 00:00: 00 fluticasone 2021-1 No 1mcg/ac propionate 2-07 tuation 50 00:00: mcg/actuati 00 on nasal spray,suspe nsion Dose 2020-02 No Unknown 2- 00:00: 00 Dose 2020-02 No Unknown 2- 00:00: 00 ibuprofen 2020-02 No 1mg 600 mg 2-07 tablet 00:00: 00 tizanidine 2020-02 No 1mg 4 mg tablet 2- 00:00: 00 fluticasone 2020-02 No 1mcg/ac propionate 2-07 tuation 50 00:00: mcg/actuati 00 on nasal spray,suspe nsion Flovent HFA 2020-02 No 2mcg/ac 220 0-26 tuation mcg/actuati 00:00: on aerosol 00 inhaler ProAir HFA 2020-02 No 1mcg/ac 90 0-26 tuation mcg/actuati 00:00: on aerosol 00 inhaler imiquimod 2020-02 No 1% 3.75 % 0-26 topical 00:00: cream in a 00 pump Dose 2020-02 No Unknown 0-26 00:00: 00 Dose 2020-02 No Unknown 0-26 00:00: 00 atorvastati 2020-02 No 1mg n 40 mg 0-26 tablet 00:00: 00 Dose 2020-02 No Unknown 0-26 00:00: 00 Dose 2020-02 No Unknown 0-26 00:00: 00 loratadine 2020-02 No 1mg 10 mg 0-26 tablet 00:00: 00 Dose 2020-02 No Unknown 0-26 00:00: 00 cyclobenzap 2020-02 No 12mg rine 5 mg 0-26 tablet 00:00: 00 mirtazapine 2020-02 No 1mg 45 mg 0-26 tablet 00:00: 00 ibuprofen 2020-02 No 1mg 800 mg 0-26 tablet 00:00: 00 ferrous 2020-02 No 1(65 mg sulfate 325 0-26 iron) mg (65 mg 00:00: iron) 00 tablet,ruchi yed release fluticasone 2020-02 No 1mcg/ac propionate 0-26 tuation 50 00:00: mcg/actuati 00 on nasal spray,suspe nsion Flovent HFA 2020-02 No 2mcg/ac 220 0-26 tuation mcg/actuati 00:00: on aerosol 00 inhaler ProAir HFA 2020-02 No 1mcg/ac 90 0-26 tuation mcg/actuati 00:00: on aerosol 00 inhaler imiquimod 2020-02 No 1% 3.75 % 0-26 topical 00:00: cream in a 00 pump Dose 2020-02 No Unknown 0-26 00:00: 00 Dose 2020-02 No Unknown 0- 00:00: 00 atorvastati 2020-02 No 1mg n 40 mg 0-26 tablet 00:00: 00 Dose 2020-02 No Unknown 0- 00:00: 00 Dose 2020-02 No Unknown 0- 00:00: 00 loratadine 2020-02 No 1mg 10 mg 0-26 tablet 00:00: 00 Dose 2020-02 No Unknown 0- 00:00: 00 cyclobenzap 2020-02 No 12mg rine 5 mg 0-26 tablet 00:00: 00 mirtazapine 2020-02 No 1mg 45 mg 0-26 tablet 00:00: 00 ibuprofen 2020-02 No 1mg 800 mg 0-26 tablet 00:00: 00 ferrous 2020-02 No 1(65 mg sulfate 325 0-26 iron) mg (65 mg 00:00: iron) 00 tablet,ruchi yed release fluticasone 2020-02 No 1mcg/ac propionate 0-26 tuation 50 00:00: mcg/actuati 00 on nasal spray,suspe nsion Flovent HFA 2020-02 No 2mcg/ac 220 0-26 tuation mcg/actuati 00:00: on aerosol 00 inhaler ProAir HFA 2020-02 No 1mcg/ac 90 0-26 tuation mcg/actuati 00:00: on aerosol 00 inhaler imiquimod 2020-02 No 1% 3.75 % 0-26 topical 00:00: cream in a 00 pump Dose 2020-02 No Unknown 0- 00:00: 00 Dose 2020-02 No Unknown 0- 00:00: 00 atorvastati 2020-02 No 1mg n 40 mg 0-26 tablet 00:00: 00 Dose 2020-02 No Unknown 0- 00:00: 00 Dose 2021-1 No Unknown 0-26 00:00: 00 loratadine 2020-1 No 1mg 10 mg 0-26 tablet 00:00: 00 Dose 2020-1 No Unknown 0-26 00:00: 00 cyclobenzap 2020-1 No 12mg rine 5 mg 0-26 tablet 00:00: 00 mirtazapine 2020-1 No 1mg 45 mg 0-26 tablet 00:00: 00 ibuprofen 2020-1 No 1mg 800 mg 0-26 tablet 00:00: 00 ferrous 2020-1 No 1(65 mg sulfate 325 0-26 iron) mg (65 mg 00:00: iron) 00 tablet,ruchi yed release fluticasone 2020- No 1mcg/ac propionate 0- tuation 50 00:00: mcg/actuati 00 on nasal spray,suspe nsion imiquimod 2020-0 No 1% 3.75 % 9-20 topical 00:00: cream in a 00 pump imiquimod 2020-0 No 1% 3.75 % 9-20 topical 00:00: cream in a 00 pump imiquimod 2020-0 No 1% 3.75 % 9-20 topical 00:00: cream in a 00 pump ibuprofen 2020-0 No 1mg 800 mg 9-01 tablet 00:00: 00 cyclobenzap 2020-0 No 12mg rine 5 mg 9-01 tablet 00:00: 00 ibuprofen 2020-0 No 1mg 800 mg 9-01 tablet 00:00: 00 cyclobenzap 2020-0 No 12mg rine 5 mg 9-01 tablet 00:00: 00 ibuprofen 2020-0 No 1mg 800 mg 9-01 tablet 00:00: 00 cyclobenzap 2020-0 No 12mg rine 5 mg 9-01 tablet 00:00: 00 losartan 2020-0 Yes [id number] 100mg Take 1 [facility] n[facility] 100 mg 8-20 tablet by [facility] tablet 00:00: mouth [place] 00 daily. [facility] losartan 2020-0 Yes [id number] 100mg Take 1 [facility] nivers 100 mg 8-20 tablet by [facility]y of tablet 00:00: mouth [place] 00 daily. [facility] losartan 2020-0 Yes [id number] 100mg Take 1 [facility] nivers 100 mg 8-20 tablet by ity of tablet 00:00: mouth daily. [facility] losartan 2020-0 Yes [id number] 100mg Take 1 U nivers 100 mg 8-20 tablet by ity of tablet 00:00: mouth 00 daily. [facility] Flovent HFA 2020-0 No 2mcg/ac 220 8-07 tuation mcg/actuati 00:00: on aerosol 00 inhaler ProAir HFA 2020-0 No 1mcg/ac 90 8-07 tuation mcg/actuati 00:00: on aerosol 00 inhaler losartan 2020-0 No 1mg 100 mg 8-07 tablet 00:00: 00 amlodipine 2020-0 No 1mg 10 mg 8-07 tablet 00:00: 00 loratadine 2020-0 No 1mg 10 mg 8-07 tablet 00:00: 00 allopurinol 2020-0 No 1mg 100 mg 8-07 tablet 00:00: 00 atorvastati 1-0 No 1mg n 40 mg 8-07 tablet 00:00: 00 citalopram 2020-0 No 1mg 20 mg 8-07 tablet 00:00: 00 Epzicom 600 2020-0 No 1mg mg-300 mg 8-07 tablet 00:00: 00 cyclobenzap 1-0 No 12mg rine 5 mg 8- tablet 00:00: 00 mirtazapine 2020-0 No 1mg 45 mg 8-07 tablet 00:00: 00 ferrous 1-0 No 1(65 mg sulfate 325 8- iron) mg (65 mg 00:00: iron) 00 tablet,ruchi yed release fluticasone 2020-0 No 1mcg/ac propionate 8-07 tuation 50 00:00: mcg/actuati 00 on nasal spray,suspe nsion Flovent HFA 2020-0 No 2mcg/ac 220 8-07 tuation mcg/actuati 00:00: on aerosol 00 inhaler ProAir HFA 2020-0 No 1mcg/ac 90 8-07 tuation mcg/actuati 00:00: on aerosol 00 inhaler losartan 2020-0 No 1mg 100 mg 8-07 tablet 00:00: 00 amlodipine 1-0 No 1mg 10 mg 8-07 tablet 00:00: 00 loratadine 2021-0 No 1mg 10 mg 8-07 tablet 00:00: 00 allopurinol 2021-0 No 1mg 100 mg 8-07 tablet 00:00: 00 atorvastati 2021-0 No 1mg n 40 mg 8-07 tablet 00:00: 00 citalopram 2021-0 No 1mg 20 mg 8-07 tablet 00:00: 00 Epzicom 600 1-0 No 1mg mg-300 mg 8-07 tablet 00:00: 00 cyclobenzap 2021-0 No 12mg rine 5 mg 8-07 tablet 00:00: 00 mirtazapine 1-0 No 1mg 45 mg 8-07 tablet 00:00: 00 ferrous 2021-0 No 1(65 mg sulfate 325 8- iron) mg (65 mg 00:00: iron) 00 tablet,ruchi yed release fluticasone 2020-0 No 1mcg/ac propionate 8-07 tuation 50 00:00: mcg/actuati 00 on nasal spray,suspe nsion Flovent HFA 2020-0 No 2mcg/ac 220 8-07 tuation mcg/actuati 00:00: on aerosol 00 inhaler ProAir HFA 2020-0 No 1mcg/ac 90 8-07 tuation mcg/actuati 00:00: on aerosol 00 inhaler losartan 1-0 No 1mg 100 mg 8-07 tablet 00:00: 00 amlodipine 1-0 No 1mg 10 mg 8-07 tablet 00:00: 00 loratadine 1-0 No 1mg 10 mg 8-07 tablet 00:00: 00 allopurinol 1-0 No 1mg 100 mg 8-07 tablet 00:00: 00 atorvastati 1-0 No 1mg n 40 mg 8-07 tablet 00:00: 00 citalopram 2021-0 No 1mg 20 mg 8-07 tablet 00:00: 00 Epzicom 600 1-0 No 1mg mg-300 mg 8-07 tablet 00:00: 00 cyclobenzap 2021-0 No 12mg rine 5 mg 8-07 tablet 00:00: 00 mirtazapine 2021-0 No 1mg 45 mg 8-07 tablet 00:00: 00 ferrous 1-0 No 1(65 mg sulfate 325 8- iron) mg (65 mg 00:00: iron) 00 tablet,ruchi yed release fluticasone 2020-0 No 1mcg/ac propionate 8-07 tuation 50 00:00: mcg/actuati 00 on nasal spray,suspe nsion Flovent HFA 2020-0 No 2mcg/ac 220 7-15 tuation mcg/actuati 00:00: on aerosol 00 inhaler ProAir HFA 2020-0 No 1mcg/ac 90 7-15 tuation mcg/actuati 00:00: on aerosol 00 inhaler losartan 1-0 No 1mg 100 mg 7-15 tablet 00:00: 00 amlodipine 1-0 No 1mg 10 mg 7-15 tablet 00:00: 00 Epzicom 600 2020-0 No 1mg mg-300 mg 7-15 tablet 00:00: 00 atorvastati 1-0 No 1mg n 40 mg 7-15 tablet 00:00: 00 citalopram 1-0 No 1mg 20 mg 7-15 tablet 00:00: 00 allopurinol 1-0 No 1mg 100 mg 7-15 tablet 00:00: 00 loratadine 1-0 No 1mg 10 mg 7-15 tablet 00:00: 00 cyclobenzap 1-0 No 12mg rine 5 mg 7-15 tablet 00:00: 00 mirtazapine 1-0 No 1mg 45 mg 7-15 tablet 00:00: 00 ferrous 1-0 No 1(65 mg sulfate 325 7-15 iron) mg (65 mg 00:00: iron) 00 tablet,ruchi yed release fluticasone 2020-0 No 1mcg/ac propionate 7-15 tuation 50 00:00: mcg/actuati 00 on nasal spray,suspe nsion Flovent HFA 2020-0 No 2mcg/ac 220 7-15 tuation mcg/actuati 00:00: on aerosol 00 inhaler ProAir HFA 2020-0 No 1mcg/ac 90 7-15 tuation mcg/actuati 00:00: on aerosol 00 inhaler losartan 1-0 No 1mg 100 mg 7-15 tablet 00:00: 00 amlodipine 1-0 No 1mg 10 mg 7-15 tablet 00:00: 00 Epzicom 600 1-0 No 1mg mg-300 mg 7-15 tablet 00:00: 00 atorvastati 2021-0 No 1mg n 40 mg 7-15 tablet 00:00: 00 citalopram 2021-0 No 1mg 20 mg 7-15 tablet 00:00: 00 allopurinol 2021-0 No 1mg 100 mg 7-15 tablet 00:00: 00 loratadine 2021-0 No 1mg 10 mg 7-15 tablet 00:00: 00 cyclobenzap 1-0 No 12mg rine 5 mg 7-15 tablet 00:00: 00 mirtazapine 1-0 No 1mg 45 mg 7-15 tablet 00:00: 00 ferrous 1-0 No 1(65 mg sulfate 325 7-15 iron) mg (65 mg 00:00: iron) 00 tablet,ruchi yed release fluticasone 2020-0 No 1mcg/ac propionate 7-15 tuation 50 00:00: mcg/actuati 00 on nasal spray,suspe nsion Flovent HFA 2020-0 No 2mcg/ac 220 7-15 tuation mcg/actuati 00:00: on aerosol 00 inhaler ProAir HFA 2020-0 No 1mcg/ac 90 7-15 tuation mcg/actuati 00:00: on aerosol 00 inhaler losartan 1-0 No 1mg 100 mg 7-15 tablet 00:00: 00 amlodipine 1-0 No 1mg 10 mg 7-15 tablet 00:00: 00 Epzicom 600 1-0 No 1mg mg-300 mg 7-15 tablet 00:00: 00 atorvastati 1-0 No 1mg n 40 mg 7-15 tablet 00:00: 00 citalopram 1-0 No 1mg 20 mg 7-15 tablet 00:00: 00 allopurinol 2021-0 No 1mg 100 mg 7-15 tablet 00:00: 00 loratadine 2021-0 No 1mg 10 mg 7-15 tablet 00:00: 00 cyclobenzap 2021-0 No 12mg rine 5 mg 7-15 tablet 00:00: 00 mirtazapine 2021-0 No 1mg 45 mg 7-15 tablet 00:00: 00 ferrous 1-0 No 1(65 mg sulfate 325 7-15 iron) mg (65 mg 00:00: iron) 00 tablet,ruchi yed release fluticasone No 1mcg/ac propionate 7-15 tuation 50 00:00: mcg/actuati 00 on nasal spray,suspe nsion amLODIPine Yes [id number] 10mg Take 1 [facility] 10 mg 7-02 tablet by [facility] of tablet 00:00: mouth [place] 00 daily. [facility] atorvastati Yes [id number] 40mg Take 1 [facility] n 40 mg 7-02 tablet by ity of tablet 00:00: mouth at [place] 00 bedtime. [facility] amLODIPine Yes [id number] 10mg Take 1 [facility] 10 mg 7-02 tablet by ity of tablet 00:00: mouth [place] 00 daily. [facility] atorvastati Yes [id number] 40mg Take 1 [facility] n 40 mg 7-02 tablet by ity of tablet 00:00: mouth at [place] [address] bedtime. [facility] amLODIPine Yes [id number] 10mg Take 1 [facility] 10 mg 7-02 tablet by ity of tablet 00:00: mouth [place] 00 daily. [facility] atorvastati Yes [id number] 40mg Take 1 [facility] n 40 mg 7-02 tablet by ity of tablet 00:00: mouth at [place] [address] bedtime. [facility] amLODIPine Yes [id number] 10mg Take 1 [facility] 10 mg 7-02 tablet by ity of tablet 00:00: mouth [place] 00 daily. [facility] atorvastati Yes [id number] 40mg Take 1 [facility] n 40 mg 7-02 tablet by ity of tablet 00:00: mouth at [place] [address] bedtime. [facility] fluticasone Yes [id number] 2{spray Use 2 [facility] propionate 6-09 } Sprays in ity of 50 00:00: each [place] mcg/actuati 00 nostril Medic al on nasal daily. Branch spray fluticasone Yes [id number] 2{puff} Inhale 2 [facility] propionate 6-09 Puffs ity of (FLOVENT 00:00: every 12 [place] HFA) 220 00 (twelve) Medical mcg/actuati hours. Branch on inhaler albuterol Yes [id number] 2{puff} Inhale 2 [facility] 90 6-09 Puffs ity of mcg/actuati 00:00: every 4 [place] on inhaler 00 (four) Medical hours as Branch needed for Wheezing or Shortness of Breath. fluticasone Yes [id number] 2{spray Use 2 [facility] propionate 6-09 } Sprays in ity of 50 00:00: each [place] mcg/actuati 00 nostril Medic al on nasal daily. Branch spray fluticasone Yes [id number] 2{puff} Inhale 2 [facility] propionate 6-09 Puffs ity of (FLOVENT 00:00: every 12 [place] HFA) 220 00 (twelve) Medical mcg/actuati hours. Branch on inhaler albuterol Yes [id number] 2{puff} Inhale 2 [facility] 90 6-09 Puffs ity of mcg/actuati 00:00: every 4 [place] on inhaler 00 (four) Medical hours as Branch needed for Wheezing or Shortness of Breath. fluticasone Yes [id number] 2{spray Use 2 [facility] propionate 6-09 } Sprays in ity of 50 00:00: each [place] mcg/actuati 00 nostril Medic al on nasal daily. Branch spray fluticasone Yes [id number] 2{puff} Inhale 2 [facility] propionate 6-09 Puffs ity of (FLOVENT 00:00: every 12 [place] HFA) 220 00 (twelve) Medical mcg/actuati hours. Branch on inhaler albuterol Yes [id number] 2{puff} Inhale 2 [facility] 90 6-09 Puffs ity of mcg/actuati 00:00: every 4 [place] on inhaler 00 (four) Medical hours as Branch needed for Wheezing or Shortness of Breath. fluticasone 0 Yes [id number] 2{spray Use 2 [facility] propionate 6-09 } Sprays in ity of 50 00:00: each [place] mcg/actuati 00 nostril Medic al on nasal daily. Branch spray fluticasone 0 Yes [id number] 2{puff} Inhale 2 [facility] propionate 6-09 Puffs ity of (FLOVENT 00:00: every 12 [place] HFA) 220 00 (twelve) Medical mcg/actuati hours. Branch on inhaler albuterol 2020-0 Yes [id number] 2{puff} Inhale 2 [facility] 90 6-09 Puffs ity of mcg/actuati 00:00: every 4 [place] on inhaler 00 (four) Medical hours as Branch needed for Wheezing or Shortness of Breath. ibuprofen 2020-0 No 1mg 800 mg 6-08 tablet 00:00: 00 ibuprofen 2020-0 No 1mg 800 mg 6-08 tablet 00:00: 00 ibuprofen 1-0 No 1mg 800 mg 6-08 tablet 00:00: 00 ProAir HFA 2020-0 No 1mcg/ac 90 6-01 tuation mcg/actuati 00:00: on aerosol 00 inhaler Epzicom 600 2020-0 No 1mg mg-300 mg 6-01 tablet 00:00: 00 losartan 1-0 No 1mg 100 mg 6-01 tablet 00:00: 00 amlodipine 1-0 No 1mg 10 mg 6-01 tablet 00:00: 00 cyclobenzap 2021-0 No 12mg rine 5 mg 6-01 tablet 00:00: 00 ibuprofen 2020-0 No 1mg 800 mg 6-01 tablet 00:00: 00 fluticasone 1-0 No 1mcg/ac propionate 6-01 tuation 50 00:00: mcg/actuati 00 on nasal spray,suspe nsion ProAir HFA 2020-0 No 1mcg/ac 90 6-01 tuation mcg/actuati 00:00: on aerosol 00 inhaler Epzicom 600 1-0 No 1mg mg-300 mg 6-01 tablet 00:00: 00 losartan 2021-0 No 1mg 100 mg 6-01 tablet 00:00: 00 amlodipine 2021-0 No 1mg 10 mg 6-01 tablet 00:00: 00 cyclobenzap 2021-0 No 12mg rine 5 mg 6-01 tablet 00:00: 00 ibuprofen 2021-0 No 1mg 800 mg 6-01 tablet 00:00: 00 fluticasone 2021-0 No 1mcg/ac propionate 6-01 tuation 50 00:00: mcg/actuati 00 on nasal spray,suspe nsion ProAir HFA 2020-0 No 1mcg/ac 90 6-01 tuation mcg/actuati 00:00: on aerosol 00 inhaler Epzicom 600 2020-0 No 1mg mg-300 mg 6- tablet 00:00: 00 losartan 2020-0 No 1mg 100 mg 6- tablet 00:00: 00 amlodipine 2020-0 No 1mg 10 mg 6- tablet 00:00: 00 cyclobenzap 2020-0 No 12mg rine 5 mg 6- tablet 00:00: 00 ibuprofen 2020-0 No 1mg 800 mg 6- tablet 00:00: 00 fluticasone 2020-0 No 1mcg/ac propionate 6- tuation 50 00:00: mcg/actuati 00 on nasal spray,suspe nsion ibuprofen 2020-0 Yes [id number] 600mg Take 1 [facility] 600 mg 5-21 tablet by ity of tablet 00:00: mouth [place] 00 every 6 Medical (six) Branch hours as needed for Pain (scale 4-6). ibuprofen 2020-0 Yes [id number] 600mg Take 1 [facility] 600 mg 5-21 tablet by ity of tablet 00:00: mouth [place] 00 every 6 Medical (six) Branch hours as needed for Pain (scale 4-6). ibuprofen 2020-0 Yes [id number] 600mg Take 1 [facility] 600 mg 5-21 tablet by ity of tablet 00:00: mouth [place] 00 every 6 Medical (six) Branch hours as needed for Pain (scale 4-6). ibuprofen 2020-0 Yes [id number] 600mg Take 1 [facility] 600 mg 5-21 tablet by ity of tablet 00:00: mouth [place] 00 every 6 Medical (six) Branch hours as needed for Pain (scale 4-6). Flovent HFA 2020-0 No 2mcg/ac 220 5-07 tuation mcg/actuati 00:00: on aerosol 00 inhaler ProAir HFA 2020-0 No 1mcg/ac 90 5-07 tuation mcg/actuati 00:00: on aerosol 00 inhaler atorvastati 2020-0 No 1mg n 40 mg 5-07 tablet 00:00: 00 citalopram 2020-0 No 1mg 20 mg 5-07 tablet 00:00: 00 allopurinol 2020-0 No 1mg 100 mg 5-07 tablet 00:00: 00 losartan 2021-0 No 1mg 100 mg 5-07 tablet 00:00: 00 amlodipine 2021-0 No 1mg 10 mg 5-07 tablet 00:00: 00 loratadine 2021-0 No 1mg 10 mg 5-07 tablet 00:00: 00 mirtazapine 2021-0 No 1mg 45 mg 5-07 tablet 00:00: 00 ferrous 2021-0 No 1(65 mg sulfate 325 5-07 iron) mg (65 mg 00:00: iron) 00 tablet,ruchi yed release fluticasone 1-0 No 1mcg/ac propionate 5-07 tuation 50 00:00: mcg/actuati 00 on nasal spray,suspe nsion Flovent HFA 2020-0 No 2mcg/ac 220 5-07 tuation mcg/actuati 00:00: on aerosol 00 inhaler ProAir HFA 2020-0 No 1mcg/ac 90 5-07 tuation mcg/actuati 00:00: on aerosol 00 inhaler atorvastati 1-0 No 1mg n 40 mg 5-07 tablet 00:00: 00 citalopram 2021-0 No 1mg 20 mg 5-07 tablet 00:00: 00 allopurinol 2021-0 No 1mg 100 mg 5-07 tablet 00:00: 00 losartan 2021-0 No 1mg 100 mg 5-07 tablet 00:00: 00 amlodipine 2021-0 No 1mg 10 mg 5-07 tablet 00:00: 00 loratadine 2021-0 No 1mg 10 mg 5-07 tablet 00:00: 00 mirtazapine 2021-0 No 1mg 45 mg 5-07 tablet 00:00: 00 ferrous 2021-0 No 1(65 mg sulfate 325 5-07 iron) mg (65 mg 00:00: iron) 00 tablet,ruchi yed release fluticasone 1-0 No 1mcg/ac propionate 5-07 tuation 50 00:00: mcg/actuati 00 on nasal spray,suspe nsion Flovent HFA 2020-0 No 2mcg/ac 220 5-07 tuation mcg/actuati 00:00: on aerosol 00 inhaler ProAir HFA 2020-0 No 1mcg/ac 90 5-07 tuation mcg/actuati 00:00: on aerosol 00 inhaler atorvastati 1-0 No 1mg n 40 mg 5-07 tablet 00:00: 00 citalopram 1-0 No 1mg 20 mg 5-07 tablet 00:00: 00 allopurinol 1-0 No 1mg 100 mg 5-07 tablet 00:00: 00 losartan 1-0 No 1mg 100 mg 5-07 tablet 00:00: 00 amlodipine 1-0 No 1mg 10 mg 5-07 tablet 00:00: 00 loratadine 1-0 No 1mg 10 mg 5-07 tablet 00:00: 00 mirtazapine 1-0 No 1mg 45 mg 5-07 tablet 00:00: 00 ferrous 1-0 No 1(65 mg sulfate 325 5-07 iron) mg (65 mg 00:00: iron) 00 tablet,ruchi yed release fluticasone 2020-0 No 1mcg/ac propionate 5-07 tuation 50 00:00: mcg/actuati 00 on nasal spray,suspe nsion Voltaren 1 1-0 No 1% % topical 3-12 gel 00:00: 00 mirtazapine 1-0 No 1mg 45 mg 3-12 tablet 00:00: 00 Tessalon 1-0 No 12mg Perles 100 3-12 mg capsule 00:00: 00 Voltaren 1 1-0 No 1% % topical 3-12 gel 00:00: 00 mirtazapine 1-0 No 1mg 45 mg 3-12 tablet 00:00: 00 Tessalon 2021-0 No 12mg Perles 100 3-12 mg capsule 00:00: 00 Voltaren 1 1-0 No 1% % topical 3-12 gel 00:00: 00 mirtazapine 1-0 No 1mg 45 mg 3-12 tablet 00:00: 00 Tessalon 2021-0 No 12mg Perles 100 3-12 mg capsule 00:00: 00 fluticasone 1-0 No 1mcg/ac propionate -19 tuation 50 00:00: mcg/actuati 00 on nasal spray,suspe nsion fluticasone 1-0 No 1mcg/ac propionate -19 tuation 50 00:00: mcg/actuati 00 on nasal spray,suspe nsion fluticasone 2020-0 No 1mcg/ac propionate 1-19 tuation 50 00:00: mcg/actuati 00 on nasal spray,suspe nsion Flovent HFA 2019-02 No 2mcg/ac 220 2-17 tuation mcg/actuati 00:00: on aerosol 00 inhaler ProAir HFA 2019-02 No 1mcg/ac 90 2-17 tuation mcg/actuati 00:00: on aerosol 00 inhaler Voltaren 1 2019-02 No 1% % topical 2-17 gel 00:00: 00 loratadine 2019-02 No 1mg 10 mg 2-17 tablet 00:00: 00 Epzicom 600 2019-02 No 1mg mg-300 mg 2-17 tablet 00:00: 00 amlodipine 2019-02 No 1mg 10 mg 2-17 tablet 00:00: 00 losartan 2019-02 No 1mg 100 mg 2-17 tablet 00:00: 00 allopurinol 2019-02 No 1mg 100 mg 2-17 tablet 00:00: 00 citalopram 2019-02 No 1mg 20 mg 2-17 tablet 00:00: 00 atorvastati 2019-02 No 1mg n 40 mg 2-17 tablet 00:00: 00 mirtazapine 2019-02 No 1mg 45 mg 2-17 tablet 00:00: 00 ferrous 2019-1 No 1(65 mg sulfate 325 2-17 iron) mg (65 mg 00:00: iron) 00 tablet,ruchi yed release Flovent HFA 2019-02 No 2mcg/ac 220 2-17 tuation mcg/actuati 00:00: on aerosol 00 inhaler ProAir HFA 2019-02 No 1mcg/ac 90 2-17 tuation mcg/actuati 00:00: on aerosol 00 inhaler Voltaren 1 2019-02 No 1% % topical 2-17 gel 00:00: 00 loratadine 2019- No 1mg 10 mg 2-17 tablet 00:00: 00 Epzicom 600 1 No 1mg mg-300 mg 2-17 tablet 00:00: 00 amlodipine 2019-1 No 1mg 10 mg 2-17 tablet 00:00: 00 losartan 2019-1 No 1mg 100 mg 2-17 tablet 00:00: 00 allopurinol 2019-1 No 1mg 100 mg 2-17 tablet 00:00: 00 citalopram 2019-1 No 1mg 20 mg 2-17 tablet 00:00: 00 atorvastati 2019-1 No 1mg n 40 mg 2-17 tablet 00:00: 00 mirtazapine 2019-1 No 1mg 45 mg 2-17 tablet 00:00: 00 ferrous 2019-1 No 1(65 mg sulfate 325 2-17 iron) mg (65 mg 00:00: iron) 00 tablet,ruchi yed release Flovent HFA 2019-02 No 2mcg/ac 220 2-17 tuation mcg/actuati 00:00: on aerosol 00 inhaler ProAir HFA 2019-02 No 1mcg/ac 90 2-17 tuation mcg/actuati 00:00: on aerosol 00 inhaler Voltaren 1 2019-02 No 1% % topical 2-17 gel 00:00: 00 loratadine 2019-1 No 1mg 10 mg 2-17 tablet 00:00: 00 Epzicom 600 2019-1 No 1mg mg-300 mg 2-17 tablet 00:00: 00 amlodipine 2019-1 No 1mg 10 mg 2-17 tablet 00:00: 00 losartan 2019-1 No 1mg 100 mg 2-17 tablet 00:00: 00 allopurinol 2019-1 No 1mg 100 mg 2-17 tablet 00:00: 00 citalopram 2019-1 No 1mg 20 mg 2-17 tablet 00:00: 00 atorvastati 2019-1 No 1mg n 40 mg 2-17 tablet 00:00: 00 mirtazapine 2019-1 No 1mg 45 mg 2-17 tablet 00:00: 00 ferrous 2019-1 No 1(65 mg sulfate 325 2-17 iron) mg (65 mg 00:00: iron) 00 tablet,ruchi yed release ProAir HFA 2019-02 No 1mcg/ac 90 0-28 tuation mcg/actuati 00:00: on aerosol 00 inhaler ProAir HFA 2019-02 No 1mcg/ac 90 0-28 tuation mcg/actuati 00:00: on aerosol 00 inhaler ProAir HFA 2019- No 1mcg/ac 90 0-28 tuation mcg/actuati 00:00: on aerosol 00 inhaler Voltaren 1 2020-1 No 1% % topical 0-23 gel 00:00: 00 losartan 2020-1 No 1mg 100 mg 0-23 tablet 00:00: 00 amlodipine 2020-1 No 1mg 10 mg 0-23 tablet 00:00: 00 Epzicom 600 2020-1 No 1mg mg-300 mg 0-23 tablet 00:00: 00 ibuprofen 2020-1 No 1mg 800 mg 0-23 tablet 00:00: 00 loratadine 2020-1 No 1mg 10 mg 0-23 tablet 00:00: 00 Voltaren 1 2020-1 No 1% % topical 0-23 gel 00:00: 00 losartan 2020-1 No 1mg 100 mg 0-23 tablet 00:00: 00 amlodipine 2020-1 No 1mg 10 mg 0-23 tablet 00:00: 00 Epzicom 600 2020-1 No 1mg mg-300 mg 0-23 tablet 00:00: 00 ibuprofen 2019-1 No 1mg 800 mg 0-23 tablet 00:00: 00 loratadine 2020-1 No 1mg 10 mg 0-23 tablet 00:00: 00 Voltaren 1 2019-1 No 1% % topical 0-23 gel 00:00: 00 losartan 2020-1 No 1mg 100 mg 0-23 tablet 00:00: 00 amlodipine 2020-1 No 1mg 10 mg 0-23 tablet 00:00: 00 Epzicom 600 2020-1 No 1mg mg-300 mg 0-23 tablet 00:00: 00 ibuprofen 2020-1 No 1mg 800 mg 0-23 tablet 00:00: 00 loratadine 2020-1 No 1mg 10 mg 0-23 tablet 00:00: 00 Epzicom 600 2020-0 No 1mg mg-300 mg 9-25 tablet 00:00: 00 Epzicom 600 2020-0 No 1mg mg-300 mg 9-25 tablet 00:00: 00 Epzicom 600 2020-0 No 1mg mg-300 mg 9-25 tablet 00:00: 00 ProAir HFA 2020-0 No 1mcg/ac 90 8-13 tuation mcg/actuati 00:00: on aerosol 00 inhaler nystatin-tr 2020-0 No 1unit/g iamcinolone 8-13 -% 100,000 00:00: unit/g-0.1 00 % topical cream amlodipine 2019-0 No 1mg 10 mg 8-13 tablet 00:00: 00 ibuprofen 2020-0 No 1mg 800 mg 8-13 tablet 00:00: 00 losartan 2020-0 No 1mg 100 mg 8-13 tablet 00:00: 00 loratadine 2020-0 No 1mg 10 mg 8-13 tablet 00:00: 00 Epzicom 600 2020-0 No 1mg mg-300 mg 8-13 tablet 00:00: 00 ProAir HFA 2020-0 No 1mcg/ac 90 8-13 tuation mcg/actuati 00:00: on aerosol 00 inhaler nystatin-tr 2020-0 No 1unit/g iamcinolone 8-13 -% 100,000 00:00: unit/g-0.1 00 % topical cream amlodipine 2020-0 No 1mg 10 mg 8-13 tablet 00:00: 00 ibuprofen 2020-0 No 1mg 800 mg 8-13 tablet 00:00: 00 losartan 2020-0 No 1mg 100 mg 8-13 tablet 00:00: 00 loratadine 2020-0 No 1mg 10 mg 8-13 tablet 00:00: 00 Epzicom 600 2020-0 No 1mg mg-300 mg 8-13 tablet 00:00: 00 ProAir HFA 2020-0 No 1mcg/ac 90 8-13 tuation mcg/actuati 00:00: on aerosol 00 inhaler nystatin-tr 2020-0 No 1unit/g iamcinolone 8-13 -% 100,000 00:00: unit/g-0.1 00 % topical cream amlodipine 2020-0 No 1mg 10 mg 8-13 tablet 00:00: 00 ibuprofen 2020-0 No 1mg 800 mg 8-13 tablet 00:00: 00 losartan 2020-0 No 1mg 100 mg 8-13 tablet 00:00: 00 loratadine 2020-0 No 1mg 10 mg 8-13 tablet 00:00: 00 Epzicom 600 2020-0 No 1mg mg-300 mg 8-13 tablet 00:00: 00 Flovent HFA 2020-0 No 2mcg/ac 220 5-13 tuation mcg/actuati 00:00: on aerosol 00 inhaler ProAir HFA 2020-0 No 1mcg/ac 90 5-13 tuation mcg/actuati 00:00: on aerosol 00 inhaler citalopram 2020-0 No 1mg 20 mg 5-13 tablet 00:00: 00 atorvastati 2020-0 No 1mg n 40 mg 5-13 tablet 00:00: 00 losartan 2020-0 No 1mg 100 mg 5-13 tablet 00:00: 00 allopurinol 2020-0 No 1mg 100 mg 5-13 tablet 00:00: 00 Epzicom 600 2020-0 No 1mg mg-300 mg 5-13 tablet 00:00: 00 loratadine 2020-0 No 1mg 10 mg 5-13 tablet 00:00: 00 ibuprofen 2020-0 No 1mg 800 mg 5-13 tablet 00:00: 00 amlodipine 2020-0 No 1mg 10 mg 5-13 tablet 00:00: 00 mirtazapine 2020-0 No 1mg 45 mg 5-13 tablet 00:00: 00 hydroxyzine 2020-0 No 1mg pamoate 50 5-13 mg capsule 00:00: 00 Flovent HFA 2020-0 No 2mcg/ac 220 5-13 tuation mcg/actuati 00:00: on aerosol 00 inhaler ProAir HFA 2020-0 No 1mcg/ac 90 5-13 tuation mcg/actuati 00:00: on aerosol 00 inhaler citalopram 2020-0 No 1mg 20 mg 5-13 tablet 00:00: 00 atorvastati 2020-0 No 1mg n 40 mg 5-13 tablet 00:00: 00 losartan 2020-0 No 1mg 100 mg 5-13 tablet 00:00: 00 allopurinol 2020-0 No 1mg 100 mg 5-13 tablet 00:00: 00 Epzicom 600 2020-0 No 1mg mg-300 mg 5-13 tablet 00:00: 00 loratadine 2020-0 No 1mg 10 mg 5-13 tablet 00:00: 00 ibuprofen 2020-0 No 1mg 800 mg 5-13 tablet 00:00: 00 amlodipine 2020-0 No 1mg 10 mg 5-13 tablet 00:00: 00 mirtazapine 2020-0 No 1mg 45 mg 5-13 tablet 00:00: 00 hydroxyzine 2020-0 No 1mg pamoate 50 5-13 mg capsule 00:00: 00 Flovent HFA 2020-0 No 2mcg/ac 220 5-13 tuation mcg/actuati 00:00: on aerosol 00 inhaler ProAir HFA 2020-0 No 1mcg/ac 90 5-13 tuation mcg/actuati 00:00: on aerosol 00 inhaler citalopram 2020-0 No 1mg 20 mg 5-13 tablet 00:00: 00 atorvastati 2020-0 No 1mg n 40 mg 5-13 tablet 00:00: 00 losartan 2020-0 No 1mg 100 mg 5-13 tablet 00:00: 00 allopurinol 2020-0 No 1mg 100 mg 5-13 tablet 00:00: 00 Epzicom 600 2020-0 No 1mg mg-300 mg 5-13 tablet 00:00: 00 loratadine 2020-0 No 1mg 10 mg 5-13 tablet 00:00: 00 ibuprofen 2020-0 No 1mg 800 mg 5-13 tablet 00:00: 00 amlodipine 2020-0 No 1mg 10 mg 5-13 tablet 00:00: 00 mirtazapine 2020-0 No 1mg 45 mg 5-13 tablet 00:00: 00 hydroxyzine 2020-0 No 1mg pamoate 50 5-13 mg capsule 00:00: 00 ibuprofen 2020-0 No 1mg 800 mg 4-09 tablet 00:00: 00 ibuprofen 2020-0 No 1mg 800 mg 4-09 tablet 00:00: 00 ibuprofen 2020-0 No 1mg 800 mg 4-09 tablet 00:00: 00 Flovent HFA 2020-0 No 2mcg/ac 220 3-24 tuation mcg/actuati 00:00: on aerosol 00 inhaler Flovent HFA 2020-0 No 2mcg/ac 220 3-24 tuation mcg/actuati 00:00: on aerosol 00 inhaler ProAir HFA 2020-0 No 1mcg/ac 90 3-24 tuation mcg/actuati 00:00: on aerosol 00 inhaler ProAir HFA 2020-0 No 1mcg/ac 90 3-24 tuation mcg/actuati 00:00: on aerosol 00 inhaler Epzicom 600 2020-0 No 1mg mg-300 mg 3-24 tablet 00:00: 00 citalopram 2020-0 No 1mg 20 mg 3-24 tablet 00:00: 00 montelukast 2020-0 No 1mg 10 mg 3-24 tablet 00:00: 00 atorvastati 2020-0 No 1mg n 40 mg 3-24 tablet 00:00: 00 losartan 2020-0 No 1mg 100 mg 3-24 tablet 00:00: 00 amlodipine 2020-0 No 1mg 10 mg 3-24 tablet 00:00: 00 allopurinol 2020-0 No 1mg 100 mg 3-24 tablet 00:00: 00 loratadine 2020-0 No 1mg 10 mg 3-24 tablet 00:00: 00 losartan 2020-0 No 1mg 100 mg 3-24 tablet 00:00: 00 amlodipine 2020-0 No 1mg 10 mg 3-24 tablet 00:00: 00 allopurinol 2020-0 No 1mg 100 mg 3-24 tablet 00:00: 00 loratadine 2020-0 No 1mg 10 mg 3-24 tablet 00:00: 00 Epzicom 600 2020-0 No 1mg mg-300 mg 3-24 tablet 00:00: 00 citalopram 2020-0 No 1mg 20 mg 3-24 tablet 00:00: 00 montelukast 2020-0 No 1mg 10 mg 3-24 tablet 00:00: 00 atorvastati 2020-0 No 1mg n 40 mg 3-24 tablet 00:00: 00 Epzicom 600 2020-0 No 1mg mg-300 mg 3-24 tablet 00:00: 00 mirtazapine 2020-0 No 1mg 45 mg 3-24 tablet 00:00: 00 mirtazapine 2020-0 No 1mg 45 mg 3-24 tablet 00:00: 00 ferrous 2020-0 No 1(65 mg sulfate 325 3-24 iron) mg (65 mg 00:00: iron) 00 tablet,ruchi yed release ferrous 2020-0 No 1(65 mg sulfate 325 3-24 iron) mg (65 mg 00:00: iron) 00 tablet,ruchi yed release fluticasone 2020-0 No 1mcg/ac propionate 3-24 tuation 50 00:00: mcg/actuati 00 on nasal spray,suspe nsion fluticasone 2020-0 No 1mcg/ac propionate 3-24 tuation 50 00:00: mcg/actuati 00 on nasal spray,suspe nsion hydroxyzine 2020-0 No 1mg pamoate 50 3-24 mg capsule 00:00: 00 hydroxyzine 2020-0 No 1mg pamoate 50 3-24 mg capsule 00:00: 00 Flovent HFA 2020-0 No 2mcg/ac 220 3-24 tuation mcg/actuati 00:00: on aerosol 00 inhaler Flovent HFA 2020-0 No 2mcg/ac 220 3-24 tuation mcg/actuati 00:00: on aerosol 00 inhaler ProAir HFA 2020-0 No 1mcg/ac 90 3-24 tuation mcg/actuati 00:00: on aerosol 00 inhaler ProAir HFA 2020-0 No 1mcg/ac 90 3-24 tuation mcg/actuati 00:00: on aerosol 00 inhaler Epzicom 600 2020-0 No 1mg mg-300 mg 3-24 tablet 00:00: 00 citalopram 2020-0 No 1mg 20 mg 3-24 tablet 00:00: 00 montelukast 2020-0 No 1mg 10 mg 3-24 tablet 00:00: 00 atorvastati 2020-0 No 1mg n 40 mg 3-24 tablet 00:00: 00 losartan 2020-0 No 1mg 100 mg 3-24 tablet 00:00: 00 amlodipine 2020-0 No 1mg 10 mg 3-24 tablet 00:00: 00 allopurinol 2020-0 No 1mg 100 mg 3-24 tablet 00:00: 00 loratadine 2020-0 No 1mg 10 mg 3-24 tablet 00:00: 00 losartan 2020-0 No 1mg 100 mg 3-24 tablet 00:00: 00 amlodipine 2020-0 No 1mg 10 mg 3-24 tablet 00:00: 00 allopurinol 2020-0 No 1mg 100 mg 3-24 tablet 00:00: 00 loratadine 2020-0 No 1mg 10 mg 3-24 tablet 00:00: 00 Epzicom 600 2020-0 No 1mg mg-300 mg 3-24 tablet 00:00: 00 citalopram 2020-0 No 1mg 20 mg 3-24 tablet 00:00: 00 montelukast 2020-0 No 1mg 10 mg 3-24 tablet 00:00: 00 atorvastati 2020-0 No 1mg n 40 mg 3-24 tablet 00:00: 00 Epzicom 600 2020-0 No 1mg mg-300 mg 3-24 tablet 00:00: 00 mirtazapine 2020-0 No 1mg 45 mg 3-24 tablet 00:00: 00 mirtazapine 2020-0 No 1mg 45 mg 3-24 tablet 00:00: 00 ferrous 2020-0 No 1(65 mg sulfate 325 3-24 iron) mg (65 mg 00:00: iron) 00 tablet,ruchi yed release ferrous 2020-0 No 1(65 mg sulfate 325 3-24 iron) mg (65 mg 00:00: iron) 00 tablet,ruchi yed release fluticasone 2020-0 No 1mcg/ac propionate 3-24 tuation 50 00:00: mcg/actuati 00 on nasal spray,suspe nsion fluticasone 2020-0 No 1mcg/ac propionate 3-24 tuation 50 00:00: mcg/actuati 00 on nasal spray,suspe nsion hydroxyzine 2020-0 No 1mg pamoate 50 3-24 mg capsule 00:00: 00 hydroxyzine 2020-0 No 1mg pamoate 50 3-24 mg capsule 00:00: 00 Flovent HFA 2020-0 No 2mcg/ac 220 3-24 tuation mcg/actuati 00:00: on aerosol 00 inhaler Flovent HFA 2020-0 No 2mcg/ac 220 3-24 tuation mcg/actuati 00:00: on aerosol 00 inhaler ProAir HFA 2020-0 No 1mcg/ac 90 3-24 tuation mcg/actuati 00:00: on aerosol 00 inhaler ProAir HFA 2020-0 No 1mcg/ac 90 3-24 tuation mcg/actuati 00:00: on aerosol 00 inhaler Epzicom 600 2020-0 No 1mg mg-300 mg 3-24 tablet 00:00: 00 citalopram 2020-0 No 1mg 20 mg 3-24 tablet 00:00: 00 montelukast 2020-0 No 1mg 10 mg 3-24 tablet 00:00: 00 atorvastati 2020-0 No 1mg n 40 mg 3-24 tablet 00:00: 00 losartan 2020-0 No 1mg 100 mg 3-24 tablet 00:00: 00 amlodipine 2020-0 No 1mg 10 mg 3-24 tablet 00:00: 00 allopurinol 2020-0 No 1mg 100 mg 3-24 tablet 00:00: 00 loratadine 2020-0 No 1mg 10 mg 3-24 tablet 00:00: 00 losartan 2020-0 No 1mg 100 mg 3-24 tablet 00:00: 00 amlodipine 2020-0 No 1mg 10 mg 3-24 tablet 00:00: 00 allopurinol 2020-0 No 1mg 100 mg 3-24 tablet 00:00: 00 loratadine 2020-0 No 1mg 10 mg 3-24 tablet 00:00: 00 Epzicom 600 2020-0 No 1mg mg-300 mg 3-24 tablet 00:00: 00 citalopram 2020-0 No 1mg 20 mg 3-24 tablet 00:00: 00 montelukast 2020-0 No 1mg 10 mg 3-24 tablet 00:00: 00 atorvastati 2020-0 No 1mg n 40 mg 3-24 tablet 00:00: 00 Epzicom 600 2020-0 No 1mg mg-300 mg 3-24 tablet 00:00: 00 mirtazapine 2020-0 No 1mg 45 mg 3-24 tablet 00:00: 00 mirtazapine 2020-0 No 1mg 45 mg 3-24 tablet 00:00: 00 ferrous 2020-0 No 1(65 mg sulfate 325 3-24 iron) mg (65 mg 00:00: iron) 00 tablet,ruchi yed release ferrous 2020-0 No 1(65 mg sulfate 325 3-24 iron) mg (65 mg 00:00: iron) 00 tablet,ruchi yed release fluticasone 2020-0 No 1mcg/ac propionate 3-24 tuation 50 00:00: mcg/actuati 00 on nasal spray,suspe nsion fluticasone 2020-0 No 1mcg/ac propionate 3-24 tuation 50 00:00: mcg/actuati 00 on nasal spray,suspe nsion hydroxyzine 2020-0 No 1mg pamoate 50 3-24 mg capsule 00:00: 00 hydroxyzine 2020-0 No 1mg pamoate 50 3-24 mg capsule 00:00: 00 metronidazo 2020-0 No 1mg le 500 mg 2-21 tablet 00:00: 00 metronidazo 2020-0 No 1mg le 500 mg 2-21 tablet 00:00: 00 metronidazo 2020-0 No 1mg le 500 mg 2-21 tablet 00:00: 00 fluconazole 2020-0 No 1mg 150 mg 2-18 tablet 00:00: 00 fluconazole 2020-0 No 1mg 150 mg 2-18 tablet 00:00: 00 fluconazole 2020-0 No 1mg 150 mg 2-18 tablet 00:00: 00 Flovent HFA 2020-0 No 2mcg/ac 220 2-11 tuation mcg/actuati 00:00: on aerosol 00 inhaler Flovent HFA 2020-0 No 2mcg/ac 220 2-11 tuation mcg/actuati 00:00: on aerosol 00 inhaler Flovent HFA 2020-0 No 2mcg/ac 220 2-11 tuation mcg/actuati 00:00: on aerosol 00 inhaler ProAir HFA 2020-0 No 1mcg/ac 90 2-11 tuation mcg/actuati 00:00: on aerosol 00 inhaler Epzicom 600 2020-0 No 1mg mg-300 mg 2-11 tablet 00:00: 00 Flovent HFA 2020-0 No 2mcg/ac 220 2-11 tuation mcg/actuati 00:00: on aerosol 00 inhaler ProAir HFA 2020-0 No 1mcg/ac 90 2-11 tuation mcg/actuati 00:00: on aerosol 00 inhaler Epzicom 600 2020-0 No 1mg mg-300 mg 2-11 tablet 00:00: 00 Flovent HFA 2020-0 No 2mcg/ac 220 2-11 tuation mcg/actuati 00:00: on aerosol 00 inhaler Flovent HFA 2020-0 No 2mcg/ac 220 2-11 tuation mcg/actuati 00:00: on aerosol 00 inhaler ProAir HFA 2020-0 No 1mcg/ac 90 2-11 tuation mcg/actuati 00:00: on aerosol 00 inhaler Epzicom 600 2020-0 No 1mg mg-300 mg 2-11 tablet 00:00: 00 ProAir HFA 2020-0 No 1mcg/ac 90 1-16 tuation mcg/actuati 00:00: on aerosol 00 inhaler ProAir HFA 2020-0 No 1mcg/ac 90 1-16 tuation mcg/actuati 00:00: on aerosol 00 inhaler ProAir HFA 2020-0 No 1mcg/ac 90 1-16 tuation mcg/actuati 00:00: on aerosol 00 inhaler Flovent HFA 2020-0 No 2mcg/ac 220 1-08 tuation mcg/actuati 00:00: on aerosol 00 inhaler allopurinol 2020-0 No 1mg 100 mg 1-08 tablet 00:00: 00 losartan 2020-0 No 1mg 100 mg 1-08 tablet 00:00: 00 amlodipine 2020-0 No 1mg 10 mg 1-08 tablet 00:00: 00 atorvastati 2020-0 No 1mg n 40 mg 1-08 tablet 00:00: 00 citalopram 2020-0 No 1mg 20 mg 1-08 tablet 00:00: 00 montelukast 2020-0 No 1mg 10 mg 1-08 tablet 00:00: 00 mirtazapine 2020-0 No 1mg 30 mg 1-08 tablet 00:00: 00 ferrous 2020-0 No 1(65 mg sulfate 325 1-08 iron) mg (65 mg 00:00: iron) 00 tablet,ruchi yed release fluticasone 2020-0 No 1mcg/ac propionate 1-08 tuation 50 00:00: mcg/actuati 00 on nasal spray,suspe nsion indomethaci 2020-0 No 1mg n 25 mg 1-08 capsule 00:00: 00 Flovent HFA 2020-0 No 2mcg/ac 220 1-08 tuation mcg/actuati 00:00: on aerosol 00 inhaler allopurinol 2020-0 No 1mg 100 mg 1-08 tablet 00:00: 00 losartan 2020-0 No 1mg 100 mg 1-08 tablet 00:00: 00 amlodipine 2020-0 No 1mg 10 mg 1-08 tablet 00:00: 00 atorvastati 2020-0 No 1mg n 40 mg 1-08 tablet 00:00: 00 citalopram 2020-0 No 1mg 20 mg 1-08 tablet 00:00: 00 montelukast 2020-0 No 1mg 10 mg 1-08 tablet 00:00: 00 mirtazapine 2020-0 No 1mg 30 mg 1-08 tablet 00:00: 00 ferrous 2020-0 No 1(65 mg sulfate 325 1-08 iron) mg (65 mg 00:00: iron) 00 tablet,ruchi yed release fluticasone 2020-0 No 1mcg/ac propionate 1-08 tuation 50 00:00: mcg/actuati 00 on nasal spray,suspe nsion indomethaci 2020-0 No 1mg n 25 mg 1-08 capsule 00:00: 00 Flovent HFA 2020-0 No 2mcg/ac 220 1-08 tuation mcg/actuati 00:00: on aerosol 00 inhaler allopurinol 2020-0 No 1mg 100 mg 1-08 tablet 00:00: 00 losartan 2020-0 No 1mg 100 mg 1-08 tablet 00:00: 00 amlodipine 2020-0 No 1mg 10 mg 1-08 tablet 00:00: 00 atorvastati 2020-0 No 1mg n 40 mg 1-08 tablet 00:00: 00 citalopram 2020-0 No 1mg 20 mg 1-08 tablet 00:00: 00 montelukast 2020-0 No 1mg 10 mg 1-08 tablet 00:00: 00 mirtazapine 2020-0 No 1mg 30 mg 1-08 tablet 00:00: 00 ferrous 2020-0 No 1(65 mg sulfate 325 1-08 iron) mg (65 mg 00:00: iron) 00 tablet,ruchi yed release fluticasone 2019-0 No 1mcg/ac propionate 1-08 tuation 50 00:00: mcg/actuati 00 on nasal spray,suspe nsion indomethaci 2019-0 No 1mg n 25 mg 1-08 capsule 00:00: 00 allopurinol 2019-1 No 1mg 100 mg 2-27 tablet 00:00: 00 amlodipine 2019-1 No 1mg 10 mg 2-27 tablet 00:00: 00 mirtazapine 2019-1 No 1mg 30 mg 2-27 tablet 00:00: 00 fluticasone 2019-1 No 1mcg/ac propionate 2-27 tuation 50 00:00: mcg/actuati 00 on nasal spray,suspe nsion allopurinol 2019-1 No 1mg 100 mg 2-27 tablet 00:00: 00 amlodipine 2019-1 No 1mg 10 mg 2-27 tablet 00:00: 00 mirtazapine 2019-1 No 1mg 30 mg 2-27 tablet 00:00: 00 fluticasone 2019-1 No 1mcg/ac propionate 2-27 tuation 50 00:00: mcg/actuati 00 on nasal spray,suspe nsion allopurinol 2019-1 No 1mg 100 mg 2-27 tablet 00:00: 00 amlodipine 2019-1 No 1mg 10 mg 2-27 tablet 00:00: 00 mirtazapine 2018-02 No 1mg 30 mg 2-27 tablet 00:00: 00 fluticasone 2018-02 No 1mcg/ac propionate 2-27 tuation 50 00:00: mcg/actuati 00 on nasal spray,suspe nsion ProAir HFA 2018-02 No 1mcg/ac 90 2-11 tuation mcg/actuati 00:00: on aerosol 00 inhaler ProAir HFA 2018-02 No 1mcg/ac 90 2-11 tuation mcg/actuati 00:00: on aerosol 00 inhaler ProAir HFA 2018-02 No 1mcg/ac 90 2-11 tuation mcg/actuati 00:00: on aerosol 00 inhaler mirtazapine 2018-02 No 1mg 30 mg 2-09 tablet 00:00: 00 mirtazapine 2018-02 No 1mg 30 mg 2-09 tablet 00:00: 00 mirtazapine 2018-02 No 1mg 30 mg 2-09 tablet 00:00: 00 indomethaci 2018-02 No 1mg n 25 mg 1-12 capsule 00:00: 00 indomethaci 2018-02 No 1mg n 25 mg 1-12 capsule 00:00: 00 indomethaci 2018-02 No 1mg n 25 mg 1-12 capsule 00:00: 00 fluticasone 2018-02 No 1mcg/ac propionate 0-31 tuation 50 00:00: mcg/actuati 00 on nasal spray,suspe nsion fluticasone 2018-02 No 1mcg/ac propionate 0-31 tuation 50 00:00: mcg/actuati 00 on nasal spray,suspe nsion fluticasone 2018-02 No 1mcg/ac propionate 0-31 tuation 50 00:00: mcg/actuati 00 on nasal spray,suspe nsion Flovent HFA 2018-02 No 2mcg/ac 220 0-24 tuation mcg/actuati 00:00: on aerosol 00 inhaler Flovent HFA 2018-02 No 2mcg/ac 220 0-24 tuation mcg/actuati 00:00: on aerosol 00 inhaler Flovent HFA 2018-02 No 2mcg/ac 220 0-24 tuation mcg/actuati 00:00: on aerosol 00 inhaler Bactrim DS 2019-1 No 1mg 800 mg-160 0-21 mg tablet 00:00: 00 Bactrim DS 2018- No 1mg 800 mg-160 0-21 mg tablet 00:00: 00 Bactrim DS 2018- No 1mg 800 mg-160 0-21 mg tablet 00:00: 00 Flovent HFA 2018- No 2mcg/ac 220 0-16 tuation mcg/actuati 00:00: on aerosol 00 inhaler ProAir HFA 2018- No 1mcg/ac 90 0-16 tuation mcg/actuati 00:00: on aerosol 00 inhaler allopurinol 2018- No 1mg 100 mg 0-16 tablet 00:00: 00 amlodipine 2018- No 1mg 10 mg 0-16 tablet 00:00: 00 mirtazapine 2018- No 1mg 30 mg 0-16 tablet 00:00: 00 Flovent HFA 2018- No 2mcg/ac 220 0-16 tuation mcg/actuati 00:00: on aerosol 00 inhaler ProAir HFA 2018- No 1mcg/ac 90 0-16 tuation mcg/actuati 00:00: on aerosol 00 inhaler allopurinol 2018- No 1mg 100 mg 0-16 tablet 00:00: 00 amlodipine 2018- No 1mg 10 mg 0-16 tablet 00:00: 00 mirtazapine 2018- No 1mg 30 mg 0-16 tablet 00:00: 00 Flovent HFA 2018- No 2mcg/ac 220 0-16 tuation mcg/actuati 00:00: on aerosol 00 inhaler ProAir HFA 2018- No 1mcg/ac 90 0-16 tuation mcg/actuati 00:00: on aerosol 00 inhaler allopurinol 2018- No 1mg 100 mg 0-16 tablet 00:00: 00 amlodipine 2018- No 1mg 10 mg 0-16 tablet 00:00: 00 mirtazapine 2018- No 1mg 30 mg 0-16 tablet 00:00: 00 loratadine 2018- No 1mg 10 mg 0-09 tablet 00:00: 00 fluticasone 2018- No 1mcg/ac propionate 0-09 tuation 50 00:00: mcg/actuati 00 on nasal spray,suspe nsion loratadine 2018-1 No 1mg 10 mg 0-09 tablet 00:00: 00 fluticasone 2018-02 No 1mcg/ac propionate 0-09 tuation 50 00:00: mcg/actuati 00 on nasal spray,suspe nsion loratadine 2018-02 No 1mg 10 mg 0-09 tablet 00:00: 00 fluticasone 2018-02 No 1mcg/ac propionate 0-09 tuation 50 00:00: mcg/actuati 00 on nasal spray,suspe nsion chlorhexidi 2018-02 Yes [id number] 15mL [facility] [employer] [facility] 0-07 spit out ity of (PERIDEX) 00:00: 15 mL 2 [place] 0.12 % 00 (two) Medical mouthwash times [facility] daily. chlorhexidi 2018-02 Yes [id number] 15mL [facility] [employer] ne 0-07 spit out ity of (PERIDEX) 00:00: 15 mL 2 [place] 0.12 % 00 (two) Medical mouthwash times [facility] daily. chlorhexidi 2018-02 Yes [id number] 15mL [facility] [employer] ne 0-07 spit out ity of (PERIDEX) 00:00: 15 mL 2 [place] 0.12 % 00 (two) Medical mouthwash times [facility] daily. chlorhexidi 2018-02 Yes [id number] 15mL [facility] [employer] ne 0-07 spit out ity of (PERIDEX) 00:00: 15 mL 2 [place] 0.12 % 00 (two) Medical mouthwash times [facility] daily. allopurinol 2019-0 No 1mg 100 mg 9-23 tablet 00:00: 00 allopurinol 2019-0 No 1mg 100 mg 9-23 tablet 00:00: 00 allopurinol 2019-0 No 1mg 100 mg 9-23 tablet 00:00: 00 amlodipine 2019-0 No 1mg 10 mg 9-17 tablet 00:00: 00 mirtazapine 2019-0 No 1mg 30 mg 9-17 tablet 00:00: 00 amlodipine 2019-0 No 1mg 10 mg 9-17 tablet 00:00: 00 mirtazapine 2019-0 No 1mg 30 mg 9-17 tablet 00:00: 00 amlodipine 2019-0 No 1mg 10 mg 9-17 tablet 00:00: 00 mirtazapine 2019-0 No 1mg 30 mg 9-17 tablet 00:00: 00 Flovent HFA 2019-0 No 2mcg/ac 220 9-03 tuation mcg/actuati 00:00: on aerosol 00 inhaler ProAir HFA 2019-0 No 1mcg/ac 90 9-03 tuation mcg/actuati 00:00: on aerosol 00 inhaler loratadine 2019-0 No 1mg 10 mg 9-03 tablet 00:00: 00 cyclobenzap 2019-0 No 1mg rine 10 mg 9-03 tablet 00:00: 00 fluticasone 2019-0 No 1mcg/ac propionate 9-03 tuation 50 00:00: mcg/actuati 00 on nasal spray,suspe nsion Flovent HFA 2019-0 No 2mcg/ac 220 9-03 tuation mcg/actuati 00:00: on aerosol 00 inhaler ProAir HFA 2019-0 No 1mcg/ac 90 9-03 tuation mcg/actuati 00:00: on aerosol 00 inhaler loratadine 2019-0 No 1mg 10 mg 9-03 tablet 00:00: 00 cyclobenzap 2019-0 No 1mg rine 10 mg 9-03 tablet 00:00: 00 fluticasone 2019-0 No 1mcg/ac propionate 9-03 tuation 50 00:00: mcg/actuati 00 on nasal spray,suspe nsion Flovent HFA 2019-0 No 2mcg/ac 220 9-03 tuation mcg/actuati 00:00: on aerosol 00 inhaler ProAir HFA 2019-0 No 1mcg/ac 90 9-03 tuation mcg/actuati 00:00: on aerosol 00 inhaler loratadine 2019-0 No 1mg 10 mg 9-03 tablet 00:00: 00 cyclobenzap 2019-0 No 1mg rine 10 mg 9-03 tablet 00:00: 00 fluticasone 2019-0 No 1mcg/ac propionate 9-03 tuation 50 00:00: mcg/actuati 00 on nasal spray,suspe nsion benzonatate 2019-0 No 1mg 100 mg 8-22 capsule 00:00: 00 benzonatate 2019-0 No 1mg 100 mg 8-22 capsule 00:00: 00 benzonatate 2019-0 No 1mg 100 mg 8-22 capsule 00:00: 00 Flovent HFA 2019-0 No 2mcg/ac 220 7-29 tuation mcg/actuati 00:00: on aerosol 00 inhaler ProAir HFA 2019-0 No 1mcg/ac 90 7-29 tuation mcg/actuati 00:00: on aerosol 00 inhaler allopurinol 2019-0 No 1mg 100 mg 7-29 tablet 00:00: 00 citalopram 2019-0 No 1mg 20 mg 7-29 tablet 00:00: 00 Flovent HFA 2019-0 No 2mcg/ac 220 7-29 tuation mcg/actuati 00:00: on aerosol 00 inhaler ProAir HFA 2019-0 No 1mcg/ac 90 7-29 tuation mcg/actuati 00:00: on aerosol 00 inhaler allopurinol 2019-0 No 1mg 100 mg 7-29 tablet 00:00: 00 citalopram 2019-0 No 1mg 20 mg 7-29 tablet 00:00: 00 Flovent HFA 2019-0 No 2mcg/ac 220 7-29 tuation mcg/actuati 00:00: on aerosol 00 inhaler ProAir HFA 2019-0 No 1mcg/ac 90 7-29 tuation mcg/actuati 00:00: on aerosol 00 inhaler allopurinol 2019-0 No 1mg 100 mg 7-29 tablet 00:00: 00 citalopram 2019-0 No 1mg 20 mg 7-29 tablet 00:00: 00 nystatin 2019-0 No 10unit/ 100,000 7-10 mL unit/mL 00:00: oral 00 suspension nystatin 2019-0 No 10unit/ 100,000 7-10 mL unit/mL 00:00: oral 00 suspension nystatin 2019-0 No 10unit/ 100,000 7-10 mL unit/mL 00:00: oral 00 suspension amlodipine 2019-0 No 1mg 10 mg 6-12 tablet 00:00: 00 mirtazapine 2019-0 No 1mg 30 mg 6-12 tablet 00:00: 00 indomethaci 2019-0 No 1mg n 25 mg 6-12 capsule 00:00: 00 indomethaci 2019-0 No 1mg n 25 mg 6-12 capsule 00:00: 00 amlodipine 2019-0 No 1mg 10 mg 6-12 tablet 00:00: 00 mirtazapine 2019-0 No 1mg 30 mg 6-12 tablet 00:00: 00 indomethaci 2019-0 No 1mg n 25 mg 6-12 capsule 00:00: 00 indomethaci 2019-0 No 1mg n 25 mg 6-12 capsule 00:00: 00 amlodipine 2019-0 No 1mg 10 mg 6-12 tablet 00:00: 00 mirtazapine 2019-0 No 1mg 30 mg 6-12 tablet 00:00: 00 indomethaci 2019-0 No 1mg n 25 mg 6-12 capsule 00:00: 00 indomethaci 2019-0 No 1mg n 25 mg 6-12 capsule 00:00: 00 mirtazapine 2019-0 No 1mg 30 mg 5-08 tablet 00:00: 00 mirtazapine 2019-0 No 1mg 30 mg 5-08 tablet 00:00: 00 mirtazapine 2019-0 No 1mg 30 mg 5-08 tablet 00:00: 00 allopurinol 2019-0 No 1mg 100 mg 4-10 tablet 00:00: 00 allopurinol 2019-0 No 1mg 100 mg 4-10 tablet 00:00: 00 allopurinol 2019-0 No 1mg 100 mg 4-10 tablet 00:00: 00 Flovent HFA 2019-0 No 2mcg/ac 220 4-09 tuation mcg/actuati 00:00: on aerosol 00 inhaler ProAir HFA 2019-0 No 1mcg/ac 90 4-09 tuation mcg/actuati 00:00: on aerosol 00 inhaler amlodipine 2019-0 No 1mg 10 mg 4-09 tablet 00:00: 00 citalopram 2019-0 No 1mg 20 mg 4-09 tablet 00:00: 00 indomethaci 2019-0 No 1mg n 25 mg 4-09 capsule 00:00: 00 Flovent HFA 2019-0 No 2mcg/ac 220 4-09 tuation mcg/actuati 00:00: on aerosol 00 inhaler ProAir HFA 2019-0 No 1mcg/ac 90 4-09 tuation mcg/actuati 00:00: on aerosol 00 inhaler amlodipine 2019-0 No 1mg 10 mg 4-09 tablet 00:00: 00 citalopram 2019-0 No 1mg 20 mg 4-09 tablet 00:00: 00 indomethaci 2019-0 No 1mg n 25 mg 4-09 capsule 00:00: 00 Flovent HFA 2019-0 No 2mcg/ac 220 4-09 tuation mcg/actuati 00:00: on aerosol 00 inhaler ProAir HFA 2019-0 No 1mcg/ac 90 4-09 tuation mcg/actuati 00:00: on aerosol 00 inhaler amlodipine 2019-0 No 1mg 10 mg 4-09 tablet 00:00: 00 citalopram 2019-0 No 1mg 20 mg 4-09 tablet 00:00: 00 indomethaci 2019-0 No 1mg n 25 mg 4-09 capsule 00:00: 00 indomethaci 2019-0 No 1mg n 25 mg 3-21 capsule 00:00: 00 indomethaci 2019-0 No 1mg n 25 mg 3-21 capsule 00:00: 00 indomethaci 2019-0 No 1mg n 25 mg 3-21 capsule 00:00: 00 amlodipine 2019-0 No 1mg 10 mg 3-12 tablet 00:00: 00 amlodipine 2019-0 No 1mg 10 mg 3-12 tablet 00:00: 00 amlodipine 2019-0 No 1mg 10 mg 3-12 tablet 00:00: 00 Flovent HFA 2018-1 No 2mcg/ac 220 0-03 tuation mcg/actuati 00:00: on aerosol 00 inhaler ProAir HFA 2018-1 No 1mcg/ac 90 0-03 tuation mcg/actuati 00:00: on aerosol 00 inhaler citalopram 2018-1 No 1mg 20 mg 0-03 tablet 00:00: 00 Keflex 500 2018-1 No 1mg mg capsule 0-03 00:00: 00 nystatin 2018-1 No 5unit/m 100,000 0-03 L unit/mL 00:00: oral 00 suspension Flovent HFA 2018-1 No 2mcg/ac 220 0-03 tuation mcg/actuati 00:00: on aerosol 00 inhaler ProAir HFA 2018-1 No 1mcg/ac 90 0-03 tuation mcg/actuati 00:00: on aerosol 00 inhaler citalopram 2018-1 No 1mg 20 mg 0-03 tablet 00:00: 00 Keflex 500 2018-1 No 1mg mg capsule 0-03 00:00: 00 nystatin 2018-1 No 5unit/m 100,000 0-03 L unit/mL 00:00: oral 00 suspension Flovent HFA 2018-1 No 2mcg/ac 220 0-03 tuation mcg/actuati 00:00: on aerosol 00 inhaler ProAir HFA 2018-1 No 1mcg/ac 90 0-03 tuation mcg/actuati 00:00: on aerosol 00 inhaler citalopram 2018-1 No 1mg 20 mg 0-03 tablet 00:00: 00 Keflex 500 2018-1 No 1mg mg capsule 0-03 00:00: 00 nystatin 2018-1 No 5unit/m 100,000 0-03 L unit/mL 00:00: oral 00 suspension triamcinolo 2018-0 No 1% ne 9-25 acetonide 00:00: 0.1 % 00 topical cream triamcinolo 2018-0 No 1% ne 9-25 acetonide 00:00: 0.1 % 00 topical cream triamcinolo 2018-0 No 1% ne 9-25 acetonide 00:00: 0.1 % 00 topical cream amlodipine 2018-0 No 1mg 10 mg 9-21 tablet 00:00: 00 amlodipine 2018-0 No 1mg 10 mg 9-21 tablet 00:00: 00 amlodipine 2018-0 No 1mg 10 mg 9-21 tablet 00:00: 00 Flovent HFA 2018-0 No 2mcg/ac 220 7-31 tuation mcg/actuati 00:00: on aerosol 00 inhaler ProAir HFA 2018-0 No 1mcg/ac 90 7-31 tuation mcg/actuati 00:00: on aerosol 00 inhaler zolpidem 10 2018-0 No 1mg mg tablet 7-31 00:00: 00 citalopram 2018-0 No 1mg 20 mg 7-31 tablet 00:00: 00 prednisone 2018-0 No 1mg 10 mg 7-31 tablet 00:00: 00 amlodipine 2018-0 No 1mg 10 mg 7-31 tablet 00:00: 00 citalopram 2018-0 No 1mg 20 mg 7-31 tablet 00:00: 00 acetaminoph 2018-0 No 1mg en 300 7-31 mg-codeine 00:00: 30 mg 00 tablet naproxen 2018-0 No 1mg 500 mg 7-31 tablet 00:00: 00 ibuprofen 2018-0 No 1mg 800 mg 7-31 tablet 00:00: 00 benzonatate 2018-0 No 1mg 100 mg 7-31 capsule 00:00: 00 Flovent HFA 2018-0 No 2mcg/ac 220 7-31 tuation mcg/actuati 00:00: on aerosol 00 inhaler ProAir HFA 2018-0 No 1mcg/ac 90 7-31 tuation mcg/actuati 00:00: on aerosol 00 inhaler zolpidem 10 2018-0 No 1mg mg tablet 7-31 00:00: 00 citalopram 2018-0 No 1mg 20 mg 7-31 tablet 00:00: 00 prednisone 2018-0 No 1mg 10 mg 7-31 tablet 00:00: 00 amlodipine 2018-0 No 1mg 10 mg 7-31 tablet 00:00: 00 citalopram 2018-0 No 1mg 20 mg 7-31 tablet 00:00: 00 acetaminoph 2018-0 No 1mg en 300 7-31 mg-codeine 00:00: 30 mg 00 tablet naproxen 2018-0 No 1mg 500 mg 7-31 tablet 00:00: 00 ibuprofen 2018-0 No 1mg 800 mg 7-31 tablet 00:00: 00 benzonatate 2018-0 No 1mg 100 mg 7-31 capsule 00:00: 00 Flovent HFA 2018-0 No 2mcg/ac 220 7-31 tuation mcg/actuati 00:00: on aerosol 00 inhaler ProAir HFA 2018-0 No 1mcg/ac 90 7-31 tuation mcg/actuati 00:00: on aerosol 00 inhaler zolpidem 10 2018-0 No 1mg mg tablet 7-31 00:00: 00 citalopram 2018-0 No 1mg 20 mg 7-31 tablet 00:00: 00 prednisone 2018-0 No 1mg 10 mg 7-31 tablet 00:00: 00 amlodipine 2018-0 No 1mg 10 mg 7-31 tablet 00:00: 00 citalopram 2018-0 No 1mg 20 mg 7-31 tablet 00:00: 00 acetaminoph 2018-0 No 1mg en 300 7-31 mg-codeine 00:00: 30 mg 00 tablet naproxen 2018-0 No 1mg 500 mg 7-31 tablet 00:00: 00 ibuprofen 2018-0 No 1mg 800 mg 7-31 tablet 00:00: 00 benzonatate 2018-0 No 1mg 100 mg 7-31 capsule 00:00: 00 Tessalon 2018-0 No 1mg Perles 100 7-20 mg capsule 00:00: 00 Tessalon 2018-0 No 1mg Perles 100 7-20 mg capsule 00:00: 00 Tessalon 2018-0 No 1mg Perles 100 7-20 mg capsule 00:00: 00 hydrocortis 2018-0 No 1% one 0.5 % 7-17 topical 00:00: cream 00 benzonatate 2018-0 No 1mg 100 mg 7-17 capsule 00:00: 00 hydrocortis 2018-0 No 1% one 0.5 % 7-17 topical 00:00: cream 00 benzonatate 2018-0 No 1mg 100 mg 7-17 capsule 00:00: 00 hydrocortis 2018-0 No 1% one 0.5 % 7-17 topical 00:00: cream 00 benzonatate 2018-0 No 1mg 100 mg 7-17 capsule 00:00: 00 Flovent HFA 2018-0 No 2mcg/ac 220 6-14 tuation mcg/actuati 00:00: on aerosol 00 inhaler Augmentin 2018-0 No 1mg 875 mg-125 6-14 mg tablet 00:00: 00 Flovent HFA 2018-0 No 2mcg/ac 220 6-14 tuation mcg/actuati 00:00: on aerosol 00 inhaler Augmentin 2018-0 No 1mg 875 mg-125 6-14 mg tablet 00:00: 00 Flovent HFA 2018-0 No 2mcg/ac 220 6-14 tuation mcg/actuati 00:00: on aerosol 00 inhaler Augmentin 2018-0 No 1mg 875 mg-125 6-14 mg tablet 00:00: 00 loratadine 2018-0 No 1mg 10 mg 5-29 tablet 00:00: 00 loratadine 2018-0 No 1mg 10 mg 5-29 tablet 00:00: 00 loratadine 2018-0 No 1mg 10 mg 5-29 tablet 00:00: 00 naproxen 2018-0 No 1mg 500 mg 5-16 tablet 00:00: 00 naproxen 2018-0 No 1mg 500 mg 5-16 tablet 00:00: 00 naproxen 2018-0 No 1mg 500 mg 5-16 tablet 00:00: 00 permethrin 2018-0 No 1% 5 % topical 5-07 cream 00:00: 00 amlodipine 2018-0 No 1mg 10 mg 5-07 tablet 00:00: 00 allopurinol 2018-0 No 1mg 300 mg 5-07 tablet 00:00: 00 gabapentin 2018-0 No 1mg 300 mg 5-07 capsule 00:00: 00 promethazin 2018-0 No 5mg/5 e-DM 6.25 5-07 mL mg-15 mg/5 00:00: mL syrup 00 permethrin 2018-0 No 1% 5 % topical 5-07 cream 00:00: 00 amlodipine 2018-0 No 1mg 10 mg 5-07 tablet 00:00: 00 allopurinol 2018-0 No 1mg 300 mg 5-07 tablet 00:00: 00 gabapentin 2018-0 No 1mg 300 mg 5-07 capsule 00:00: 00 promethazin 2018-0 No 5mg/5 e-DM 6.25 5-07 mL mg-15 mg/5 00:00: mL syrup 00 permethrin 2018-0 No 1% 5 % topical 5-07 cream 00:00: 00 amlodipine 2018-0 No 1mg 10 mg 5-07 tablet 00:00: 00 allopurinol 2018-0 No 1mg 300 mg 5-07 tablet 00:00: 00 gabapentin 2018-0 No 1mg 300 mg 5-07 capsule 00:00: 00 promethazin 2018-0 No 5mg/5 e-DM 6.25 5-07 mL mg-15 mg/5 00:00: mL syrup 00 amlodipine 2018-0 No 1mg 10 mg 2-22 tablet 00:00: 00 benazepril 2018-0 No 1mg 10 mg 2-22 tablet 00:00: 00 Diflucan 2018-0 No 1mg 150 mg 2-22 tablet 00:00: 00 amlodipine 2018-0 No 1mg 10 mg 2-22 tablet 00:00: 00 benazepril 2018-0 No 1mg 10 mg 2-22 tablet 00:00: 00 Diflucan 2018-0 No 1mg 150 mg 2-22 tablet 00:00: 00 amlodipine 2018-0 No 1mg 10 mg 2-22 tablet 00:00: 00 benazepril 2018-0 No 1mg 10 mg 2-22 tablet 00:00: 00 Diflucan 2018-0 No 1mg 150 mg 2-22 tablet 00:00: 00 amitriptyli 2018-0 No 1mg ne 100 mg 1-22 tablet 00:00: 00 amitriptyli 2018-0 No 1mg ne 100 mg 1-22 tablet 00:00: 00 amitriptyli 2018-0 No 1mg ne 100 mg 1-22 tablet 00:00: 00 allopurinol 2018-0 No 1mg 300 mg 1-09 tablet 00:00: 00 prednisone 2018-0 No mg 20 mg 1-09 tablet 00:00: 00 allopurinol 2018-0 No 1mg 300 mg 1-09 tablet 00:00: 00 prednisone 2018-0 No mg 20 mg 1-09 tablet 00:00: 00 allopurinol 2018-0 No 1mg 300 mg 1-09 tablet 00:00: 00 prednisone 2018-0 No mg 20 mg 1-09 tablet 00:00: 00 gabapentin 2018-0 No 1mg 300 mg 1-08 capsule 00:00: 00 gabapentin 2018-0 No 1mg 300 mg 1-08 capsule 00:00: 00 gabapentin 2018-0 No 1mg 300 mg 1-08 capsule 00:00: 00 Symbicort 2017-1 No 1mcg/ac 160 mcg-4.5 2-04 tuation mcg/actuati 00:00: on HFA 00 aerosol inhaler ibuprofen 2017- No 1mg 800 mg 2-04 tablet 00:00: 00 Symbicort 2017- No 1mcg/ac 160 mcg-4.5 2-04 tuation mcg/actuati 00:00: on HFA 00 aerosol inhaler ibuprofen 2016- No 1mg 800 mg 2-04 tablet 00:00: 00 Symbicort 2017-1 No 1mcg/ac 160 mcg-4.5 2-04 tuation mcg/actuati 00:00: on HFA 00 aerosol inhaler ibuprofen 2017- No 1mg 800 mg 2-04 tablet 00:00: 00 sulfamethox 2016- No 1mg azole 800 0-30 mg-trimetho 00:00: prim 160 mg 00 tablet ibuprofen 2016-02 No 1mg 800 mg 0-30 tablet 00:00: 00 sulfamethox 2016-02 No 1mg azole 800 0-30 mg-trimetho 00:00: prim 160 mg 00 tablet ibuprofen 2016-02 No 1mg 800 mg 0-30 tablet 00:00: 00 sulfamethox 2017- No 1mg azole 800 0-30 mg-trimetho 00:00: prim 160 mg 00 tablet ibuprofen 2016- No 1mg 800 mg 0-30 tablet 00:00: 00 loratadine 2017-1 No 1mg 10 mg 0-23 tablet 00:00: 00 Jessicain DM 2017- No 10mg/5 10 mg-100 0-23 mL mg/5 mL 00:00: syrup 00 loratadine 2016- No 1mg 10 mg 0-23 tablet 00:00: 00 Jessicain DM 2017- No 10mg/5 10 mg-100 0-23 mL mg/5 mL 00:00: syrup 00 loratadine 2016- No 1mg 10 mg 0-23 tablet 00:00: 00 Jessicain DM 2017- No 10mg/5 10 mg-100 0-23 mL mg/5 mL 00:00: syrup 00 Epzicom 600 2017-0 No 1mg mg-300 mg 9-27 tablet 00:00: 00 Epzicom 600 2017-0 No 1mg mg-300 mg 9-27 tablet 00:00: 00 Epzicom 600 2017-0 No 1mg mg-300 mg 9-27 tablet 00:00: 00 Epzicom 600 2017-0 No 1mg mg-300 mg 9-27 tablet 00:00: 00 Epzicom 600 2017-0 No 1mg mg-300 mg 9-27 tablet 00:00: 00 Epzicom 600 2017-0 No 1mg mg-300 mg 9-27 tablet 00:00: 00 amlodipine 2017-0 No 1mg 10 mg 9-12 tablet 00:00: 00 amlodipine 2017-0 No 1mg 10 mg 9-12 tablet 00:00: 00 amlodipine 2017-0 No 1mg 10 mg 9-12 tablet 00:00: 00 prednisone 2017-0 No 2mg 20 mg 7-11 tablet 00:00: 00 indomethaci 2017-0 No 1mg n 50 mg 7-11 capsule 00:00: 00 prednisone 2017-0 No 2mg 20 mg 7-11 tablet 00:00: 00 indomethaci 2017-0 No 1mg n 50 mg 7-11 capsule 00:00: 00 prednisone 2017-0 No 2mg 20 mg 7-11 tablet 00:00: 00 indomethaci 2017-0 No 1mg n 50 mg 7-11 capsule 00:00: 00 ibuprofen 2017-0 No 1mg 800 mg 7-10 tablet 00:00: 00 ibuprofen 2017-0 No 1mg 800 mg 7-10 tablet 00:00: 00 ibuprofen 2017-0 No 1mg 800 mg 7-10 tablet 00:00: 00 Symbicort 2017-0 No 1mcg/ac 160 mcg-4.5 4-24 tuation mcg/actuati 00:00: on HFA 00 aerosol inhaler citalopram 2017-0 No 1mg 20 mg 4-24 tablet 00:00: 00 amitriptyli 2017-0 No 12mg ne 100 mg 4-24 tablet 00:00: 00 azithromyci 2017-0 No 1mg n 250 mg 4-24 tablet 00:00: 00 Symbicort 2017-0 No 1mcg/ac 160 mcg-4.5 4-24 tuation mcg/actuati 00:00: on HFA 00 aerosol inhaler citalopram 2017-0 No 1mg 20 mg 4-24 tablet 00:00: 00 amitriptyli 2017-0 No 12mg ne 100 mg 4-24 tablet 00:00: 00 Symbicort 2017-0 No 1mcg/ac 160 mcg-4.5 4-24 tuation mcg/actuati 00:00: on HFA 00 aerosol inhaler citalopram 2017-0 No 1mg 20 mg 4-24 tablet 00:00: 00 amitriptyli 2017-0 No 12mg ne 100 mg 4-24 tablet 00:00: 00 azithromyci 2017-0 No 1mg n 250 mg 4-24 tablet 00:00: 00 azithromyci 2017-0 No 1mg n 250 mg 4-24 tablet 00:00: 00 Cetirizine 2014-02 Yes 10mg Take 1 Cap U nivers (ZYRTEC) 10 1-13 by mouth ity of mg capsule 00:00: at [place] [address] bedtime. [facility] Cetirizine 2014-02 Yes 10mg Take 1 Cap U nivers (ZYRTEC) 10 1-13 by mouth ity of mg capsule 00:00: at [place] [address] bedtime. [facility] Branch Cetirizine 2014-02 Yes 10mg Take 1 Cap U nivers (ZYRTEC) 10 1-13 by mouth ity of mg capsule 00:00: at [place] 00 bedtime. [facility] Branch Cetirizine 2014-02 Yes 10mg Take 1 Cap U nivers (ZYRTEC) 10 1-13 by mouth ity of mg capsule 00:00: at [place] [address] bedtime. [facility] Immunizations Ordered Filled Immunization Date Status Comments [facility] e Immunization Name Name [facility] 2021-06-13 Completed University of (Cilgavimab) 00:00:[address] [facility] 2021-06-13 Completed University of (Tixagevimab) 00:00:00 [facility] 2021-06-13 Completed University of (Cilgavimab) 00:00:[address] [facility] 2021-06-13 Completed University of (Tixagevimab) 00:00:00 [facility] 2021-06-13 Completed University of (Cilgavimab) 00:00:[address] [facility] 2021-06-13 Completed University of (Tixagevimab) 00:00:00 [facility] 2021-06-13 Completed University of (Cilgavimab) 00:00:[address] [facility] 2021-06-13 Completed University of (Tixagevimab) 00:00:00 [facility] TDAP 2014-08-19 Completed University of 00:00:00 [facility] TDAP 2014-08-19 Completed University of 00:00:00 [facility] TDAP 2014-08-19 Completed University of 00:00:00 [facility] TDAP 2014-08-19 Completed University of 00:00:00 [facility] Influenza Virus 2012-01-21 Completed Universit y of Vaccine 00:00:00 [facility] Influenza Virus 2012-01-21 Completed Universit y of Vaccine 00:00:00 [facility] Influenza Virus 2012-01-21 Completed Universit y of Vaccine 00:00:00 [facility] Influenza Virus 2012-01-21 Completed Universit y of Vaccine 00:00:00 [facility] Vital Signs Vital Name Observation Time Observation Value Comments Source Systolic blood 2021-07-18 20:42:00 174 mm[Hg] [facility] Diastolic blood 2021-07-18 20:42:00 98 mm[Hg] Unive rs[facility] of [facility] Heart rate 2021-07-18 20:42:00 104 /min [facility] Body temperature 2021-07-18 20:42:00 [facility].72 [facility] height 2021-07-18 20:42:00 160 cm [facility] Body weight 2021-07-18 20:42:00 56.246 kg [facility] BMI 2021-07-18 20:42:00 21.97 kg/m2 [facility] BP Systolic 2022-01-19 14:02:00 168 mm[Hg] BP Diastolic 2022-01-19 14:02:00 88 mm[Hg] Weight Measured 2022-01-19 14:02:00 112.40 pounds Height Measured 2022-01-19 14:02:00 63.00 inches Body Temperature 2022-01-19 14:02:00 98.20 degrees Heart Rate 2022-01-19 14:02:00 78.00 /min Respiratory Rate 2022-01-19 14:02:00 18.00 /min BP Systolic 2021-11-06 13:26:00 113 mm[Hg] BP Diastolic 2021-11-06 13:26:00 77 mm[Hg] Weight Measured 2021-11-06 13:26:00 119.60 pounds Height Measured 2021-11-06 13:26:00 63.00 inches Body Temperature 2021-11-06 13:26:00 97.90 degrees Heart Rate 2021-11-06 13:26:00 83.00 /min Respiratory Rate 2021-11-06 13:26:00 21.00 /min BP Systolic 2021-08-07 15:10:00 161 mm[Hg] BP Diastolic 2021-08-07 15:10:00 100 mm[Hg] Weight Measured 2021-08-07 15:10:00 120.60 pounds Height Measured 2021-08-07 15:10:00 63.00 inches Body Temperature 2021-08-07 15:10:00 98.10 degrees Heart Rate 2021-08-07 15:10:00 94.00 /min Respiratory Rate 2021-08-07 15:10:00 16.00 /min BP Systolic 2021-07-03 10:20:00 166 mm[Hg] BP Diastolic 2021-07-03 10:20:00 83 mm[Hg] Weight Measured 2021-07-03 10:20:00 121.40 pounds Height Measured 2021-07-03 10:20:00 63.00 inches Body Temperature 2021-07-03 10:20:00 98.40 degrees Heart Rate 2021-07-03 10:20:00 93.00 /min Respiratory Rate 2021-07-03 10:20:00 BP Systolic 2021-05-22 16:16:00 119 mm[Hg] BP Diastolic 2021-05-22 16:16:00 77 mm[Hg] Weight Measured 2021-05-22 16:16:00 120.20 pounds Height Measured 2021-05-22 16:16:00 63.00 inches Body Temperature 2021-05-22 16:16:00 98.20 degrees Heart Rate 2021-05-22 16:16:00 100.00 /min Respiratory Rate 2021-05-22 16:16:00 16.00 /min BP Systolic 2021-05-03 11:36:00 140 mm[Hg] BP Diastolic 2021-05-03 11:36:00 84 mm[Hg] Weight Measured 2021-05-03 11:36:00 119.80 pounds Height Measured 2021-05-03 11:36:00 63.00 inches Body Temperature 2021-05-03 11:36:00 97.30 degrees Heart Rate 2021-05-03 11:36:00 81.00 /min Respiratory Rate 2021-05-03 11:36:00 BP Systolic 2021-04-25 14:12:00 129 mm[Hg] BP Diastolic 2021-04-25 14:12:00 82 mm[Hg] Weight Measured 2021-04-25 14:12:00 120.40 pounds Height Measured 2021-04-25 14:12:00 63.00 inches Body Temperature 2021-04-25 14:12:00 97.30 degrees Heart Rate 2021-04-25 14:12:00 86.00 /min Respiratory Rate 2021-04-25 14:12:00 BP Systolic 2021-02-08 16:23:00 133 mm[Hg] BP Diastolic 2021-02-08 16:23:00 87 mm[Hg] Weight Measured 2021-02-08 16:23:00 123.80 pounds Height Measured 2021-02-08 16:23:00 63.00 inches Body Temperature 2021-02-08 16:23:00 98.30 degrees Heart Rate 2021-02-08 16:23:00 92.00 /min Respiratory Rate 2021-02-08 16:23:00 16.00 /min BP Systolic 2021-01-17 15:42:00 152 mm[Hg] BP Diastolic 2021-01-17 15:42:00 92 mm[Hg] Weight Measured 2021-01-17 15:42:00 127.20 pounds Height Measured 2021-01-17 15:42:00 63.00 inches Body Temperature 2021-01-17 15:42:00 98.30 degrees Heart Rate 2021-01-17 15:42:00 92.00 /min Respiratory Rate 2021-01-17 15:42:00 BP Systolic 2021-01-17 15:00:00 152 mm[Hg] BP Diastolic 2021-01-17 15:00:00 92 mm[Hg] Weight Measured 2021-01-17 15:00:00 127.20 pounds Height Measured 2021-01-17 15:00:00 63.00 inches Body Temperature 2021-01-17 15:00:00 98.30 degrees Heart Rate 2021-01-17 15:00:00 92.00 /min Respiratory Rate 2021-01-17 15:00:00 BP Systolic 2020-12-06 13:36:00 124 mm[Hg] BP Diastolic 2020-12-06 13:36:00 80 mm[Hg] Weight Measured 2020-12-06 13:36:00 135.00 pounds Height Measured 2020-12-06 13:36:00 63.00 inches Body Temperature 2020-12-06 13:36:00 98.10 degrees Heart Rate 2020-12-06 13:36:00 104.00 /min Respiratory Rate 2020-12-06 13:36:00 BP Systolic 2020-10-31 13:52:00 134 mm[Hg] BP Diastolic 2020-10-31 13:52:00 83 mm[Hg] Weight Measured 2020-10-31 13:52:00 131.80 pounds Height Measured 2020-10-31 13:52:00 63.00 inches Body Temperature 2020-10-31 13:52:00 98.10 degrees Heart Rate 2020-10-31 13:52:00 106.00 /min Respiratory Rate 2020-10-31 13:52:00 Procedures Procedure Date / Time Performed Performing Clinician Sourc e REFERRAL- 2022-01-19 06:01:00 [facility] REQUEST/RESPONSE Name Medical Branch [id number] Ecg Routine Ecg 2016-10-23 00:00:00 W/least 12 Lds W/i r Plan of Care Planned Activity Planned Date Details Comments Source Goal Plan of Care Note [code = 07596-0] Goal Plan of Care Note [code = 11137-4] Goal Plan of Care Note [code = 13071-1] Goal Plan of Care Note [code = 54343-4] Goal Plan of Care Note [code = 62962-9] Goal Plan of Care Note [code = 29512-1] Goal Plan of Care Note [code = 63165-4] Goal Plan of Care Note [code = 10327-9] Goal Plan of Care Note [code = 26596-3] Goal Plan of Care Note [code = 35630-7] Goal Plan of Care Note [code = 45105-5] Goal Plan of Care Note [code = 62160-0] Goal Plan of Care Note [code = 08214-1] Goal Plan of Care Note [code = 49586-4] Goal Plan of Care Note [code = 67314-8] Goal Plan of Care Note [code = 49928-0] Goal Plan of Care Note [code = 12737-7] Goal Plan of Care Note [code = 32995-2] Goal Plan of Care Note [code = 78220-5] Goal Plan of Care Note [code = 90732-0] Goal Plan of Care Note [code = 26574-8] Goal Plan of Care Note [code = 28743-0] Goal Plan of Care Note [code = 88892-4] Goal Plan of Care Note [code = 07288-1] Goal Plan of Care Note [code = 33772-0] Goal Plan of Care Note [code = 68992-9] Goal Plan of Care Note [code = 10539-9] Goal Plan of Care Note [code = 07687-7] Goal Plan of Care Note [code = 85043-6] Goal Plan of Care Note [code = 76118-5] Goal Plan of Care Note [code = 97460-2] Goal Plan of Care Note [code = 46584-6] Goal Plan of Care Note [code = 61010-3] Goal Plan of Care Note [code = 52702-0] Goal Plan of Care Note [code = 91280-3] Goal Plan of Care Note [code = 25515-6] Goal Plan of Care Note [code = 69926-8] Goal Plan of Care Note [code = 30159-5] Goal Plan of Care Note [code = 16202-2] Goal Plan of Care Note [code = 85027-6] Goal Plan of Care Note [code = 08543-8] Goal Plan of Care Note [code = 58123-5] Goal Plan of Care Note [code = 86304-6] Goal Plan of Care Note [code = 52422-4] Goal Plan of Care Note [code = 44918-6] Goal Plan of Care Note [code = 19032-4] Goal Plan of Care Note [code = 77965-0] Goal Plan of Care Note [code = 33553-8] Goal Plan of Care Note [code = 61636-2] Goal Plan of Care Note [code = 74578-3] Goal Plan of Care Note [code = 30638-9] Goal Plan of Care Note [code = 88964-4] Goal Plan of Care Note [code = 23567-3] Goal Plan of Care Note [code = 02753-4] Goal Plan of Care Note [code = 24963-2] Goal Plan of Care Note [code = 92022-2] Goal Plan of Care Note [code = 70920-0] Goal Plan of Care Note [code = 78015-8] Goal Plan of Care Note [code = 90289-3] Goal Plan of Care Note [code = 90755-6] Goal Plan of Care Note [code = 03868-3] Goal Plan of Care Note [code = 03217-4] Goal Plan of Care Note [code = 30309-6] Goal Plan of Care Note [code = 06272-5] Goal Plan of Care Note [code = 47088-3] Goal Plan of Care Note [code = 59167-4] Goal Plan of Care Note [code = 81413-6] Goal Plan of Care Note [code = 37994-8] Goal Plan of Care Note [code = 08580-6] Goal Plan of Care Note [code = 32645-5] Goal Plan of Care Note [code = 07046-8] Goal Plan of Care Note [code = 30394-3] Goal Plan of Care Note [code = 40815-4] Goal Plan of Care Note [code = 55523-8] Goal Plan of Care Note [code = 51586-7] Goal Plan of Care Note [code = 78052-9] Goal Plan of Care Note [code = 05307-7] Goal Plan of Care Note [code = 70823-2] Goal Plan of Care Note [code = 54056-6] Goal Plan of Care Note [code = 55559-7] Goal Plan of Care Note [code = 49045-6] Goal Plan of Care Note [code = 60234-1] Goal Plan of Care Note [code = 34753-4] Goal Plan of Care Note [code = 52405-4] Goal Plan of Care Note [code = 67240-5] Goal Plan of Care Note [code = 04579-6] Goal Plan of Care Note [code = 21343-3] Goal Plan of Care Note [code = 57621-7] Goal Plan of Care Note [code = 97587-4] Goal Plan of Care Note [code = 94440-8] Goal Plan of Care Note [code = 74043-9] Goal Plan of Care Note [code = 94401-5] Goal Plan of Care Note [code = 11153-8] Goal Plan of Care Note [code = 40177-1] Goal Plan of Care Note [code = 47665-5] Goal Plan of Care Note [code = 10459-5] Goal Plan of Care Note [code = 28352-6] Goal Plan of Care Note [code = 40982-5] Goal Plan of Care Note [code = 51749-9] Goal Plan of Care Note [code = 60228-5] Goal Plan of Care Note [code = 64819-6] Goal Plan of Care Note [code = 49491-5] Goal Plan of Care Note [code = 92208-0] Goal Plan of Care Note [code = 18284-1] Goal Plan of Care Note [code = 00820-0] Goal Plan of Care Note [code = 15243-8] Goal Plan of Care Note [code = 72334-9] Goal Plan of Care Note [code = 74751-1] Goal Plan of Care Note [code = 19239-8] Goal Plan of Care Note [code = 83559-2] Goal Plan of Care Note [code = 02190-6] Goal Plan of Care Note [code = 91953-8] Goal Plan of Care Note [code = 42168-7] Goal Plan of Care Note [code = 64798-9] Goal Plan of Care Note [code = 10982-1] Goal Plan of Care Note [code = 12990-4] Goal Plan of Care Note [code = 19367-7] Goal Plan of Care Note [code = 97936-8] Goal Plan of Care Note [code = 84020-8] Goal Plan of Care Note [code = 59659-0] Goal Plan of Care Note [code = 04191-4] Goal Plan of Care Note [code = 60625-0] Goal Plan of Care Note [code = 11687-0] Goal Plan of Care Note [code = 29568-6] Goal Plan of Care Note [code = 41208-9] Goal Plan of Care Note [code = 76939-2] Goal Plan of Care Note [code = 85350-1] Goal Plan of Care Note [code = 07870-1] Encounters Start End Encounter Admission Attending Care Care Encounter Source Date/Time Date/Time Type Type Clinicians Facility Department ID 2022-01-29 2022-01-29 ROSITA Nguyen [id number] Univers 00:00:00 00:00:00 Management [facility] 350.1.13.[address] [facility] 4.2.7.2.686 [place]ana s [id number] Medi donald 089 Branch 2022-01-19 2022-01-[address] [facility] 90726-2 022 Delfino 13:56:18 13:56:18 1209 F You 2022-01-19 2022-01-19 Orders Doctor KAVITA [id number] [place] [address] 00:00:00 00:00:00 Only Unassigned, YEVGENIY 350.1.13.[address] [place] [facility] 4.2.7.2.686 Ian as [id number] [facility] 009 Branch 2022-01-19 2022-01-19 Outpatient [id number] 00:00:00 00:00:00 Visit 1727-41cc 727-41cc-8 -8650-544 650-48887x 87lw22s4w b58e4d 2021-11-15 2021-11-15 Case BENIGNO Flores 1.2.981.113 [id number] [facility] 00:00:00 00:00:00 Management [facility] 350.1.13.10 ity of [place] [id number] [facility] 113 Branch 2021-11-06 2021-11-06 Outpatient [id number] 00:00:00 00:00:00 Visit 012e-4b99 12e-4b99-8 -89ed-9b1 [id number]-[id number] 4516de 2021-10-10 2021-10-10 Outpatient R [facility] [id number] Univers 09:30:00 09:30:00 ity of [facility] 2021-09-07 2021-09-07 Outpatient ELO BHARDWAJ [facility] 906 [place] 00:00:00 00:00:00 HN 0728 da [facility] 2021-08-25 2021-08-25 [place] [address]-5 022 [facility] 03:29:00 03:29:00 0715 Medica l Group 2021-08-07 2021-08-07 Outpatient cj85paol- [id number] db 72acdd-5 00:00:00 00:00:00 Visit 6i53-1fr4 q30-8as8-5 -3kw3-a11 cb5-d02d18 [id number] c7852g 2021-07-18 2021-07-18 Office Pgy2 UN[facility]ERS[facility] 1.2.198.043 [id number] Univers 15:15:00 16:23:57 Visit Gely Weber [place] 350.1.13.10 ity of [place] [id number] [facility] 113 Branch 2021-07-18 2021-07-18 [facility] [id number] Univers 15:15:00 16:23:57 [facility] 2021-07-18 [facility] [id number] Univers 15:15:00 15:15:00 GELY ity [facility] 2021-06-27 2021-06-27 Telephone BENIGNO Mccarty 1.2.840.11 [id number] Univers 00:00:00 00:00:00 [facility] 350.1.13.10 i ty of [place] [id number] [facility] 095 Branch 2021-06-15 2021-06-15 Transition ADELINE Paredes 1.2.840.114 [id number] Univers 00:00:00 00:00:00 of Care Lj SOTO 350.1.13.10 ity of [place] [id number] [facility] 403 Branch 2021-06-09 2021-06-14 Inpatient X [facility] [id number] Univers 10:48:00 17:22:00 ity of [facility] 2021-06-09 2021-06-14 Hospital Toby Donohue 1.2.840.1 14 [id number] Univers 10:48:00 17:22:00 Encounter Tressa Estrella 350.1.13.10 ity of [facility] 4.2.7.2.686 [place] [id number] [facility] 099 Branch 2021-06-12 2021-06-12 Case BENIGNO DunnIT 1.2.211.779 [id number] Univers 00:00:00 00:00:00 Management Evette Miles [facility] 350.1.13.10 ity of [facility] 4.2.7.2.686 [facility] [id number] [facility] 089 Branch 2021-06-08 2021-06-08 Emergency X [facility] ERT [id number] Univers 10:46:00 16:28:00 MIKE ity [facility] 2021-06-08 2021-06-08 Emergency [facility] 1.2.968.884 [id number] Univers 10:46:00 16:28:00 iMke MACIAS 350.1.13.10 ity of [place] 4.2.7.2.686 [place] [facility] [id number] [facility] 084 Branch 2021-05-24 2021-05-24 Letter KAVITA Quiroz 1.2.298.952 [id number] Univers 00:00:00 00:00:00 (Out) Mikael VUONG 350.1.13.[address] [facility] 4.2.7.2.686 [place] as [id number] [facility] 043 Branch 2021-05-23 2021-05-23 Orders Doctor KAVITA 1.2.840.114 [id number] Univers 00:00:00 00:00:00 Only Unassigned, YEVGENIY 350.1.13.[address] [place] [facility] 4.2.7.2.686 Ian as [id number] [facility] 009 Branch 2021-05-16 2021-05-16 Outpatient Adams_R DMG DMG [id number] 022 [facility] 09:00:00 09:00:00 0405 Medica l Group 2021-05-01 2021-05-[address] [facility] ERT [id number] Univers 11:30:00 12:47:00 JL ity of [facility] 2021-05-01 2021-05-01 Emergency [facility] 1.2.840.114 [id number] Univers 11:30:00 12:47:00 Ljedwardo MACIAS 350.1.13.10 i ty of [place] 4.2.7.2.686 [facility] [id number] [address] 2020-10-04 2020-10-04 Emergency X MAYRA [facility] ERT [id number] Univers 11:44:00 12:54:00 MARGARET ity [facility] 2020-10-04 2020-10-04 [facility] 1.2.840.114 [id number] Univers 11:44:00 12:54:00 Margaret Macias 350.1.13.10 ity [facility] 4.2.7.2.686 [facility] [id number] [address] 2020-09-29 2020-09-29 [facility] 1.2.186.093 [id number] Univers 00:00:00 00:00:00 Sendiva Macias [facility]1.13.10 [facility] 4.2.7.2.686 [facility] Professio [id number] In dical [facility] 2020-09-22 2020-09-22 Outpatient R ALEXANDRA [facility] [id number] Univers 14:30:00 14:30:00 SENDIL [facility] 2020-08-25 2020-08-25 Outpatient Adams_R DMG DMG [id number] 021 [facility] 11:32:00 11:32:00 0715 Medica l Group 2020-08-25 2020-08-25 Emergency [facility] 1.2.840.114 [id number] Univers 09:28:00 10:21:00 Margaret Macias 350.1.13.10 ity [facility] 4.2.7.2.686 [facility] [id number] [address] 2020-08-25 2020-08-25 Emergency [facility] [id number] Univers 09:28:00 10:21:00 MARGARET ity [facility] 2020-08-24 2020-08-24 Emergency Terri Elliott [facility] 1.2.840.114 [id number] Univers 14:43:00 15:59:00 Suzette Macias 350.1.13.10 i ty of [place] [id number] [facility] 084 Branch 2020-08-24 2020-08-24 Emergency X [facility] ERT [id number] Univers 14:43:00 15:59:00 ity of [facility] 2020-08-24 2020-08-24 [facility] 1.2.524.099 [id number] Univers 00:00:00 00:00:00 Sendil Tabatha Macias 350.1.13.10 ity of [place] [id number] [address] 2020-08-12 2020-08-12 Outpatient R ALEXANDRA [facility] [id number] Univers 15:00:00 15:00:00 SENDIL ity [facility] 2020-08-12 2020-08-12 Telephone [facility] 1.2.009.875 [id number] Univers 00:00:00 00:00:00 Sendiva Macias 350.1.13.10 ity of [place] [id number] [address] 2020-08-04 2020-08-04 Outpatient Adams_R DMG DMG [id number] 021 [facility] 01:58:00 01:58:00 0624 Medica l Group 2020-07-28 2020-07-28 Telephone [facility] 1.2.107.205 [id number] Univers 00:00:00 00:00:00 Sendil Tabatha Macias 350.1.13.10 ity of [facility] [place] [phone] In dicwy nal [address] [place] [address] 2020-07-28 2020-07-28 Orders Doctor WALLS [id number] Univers 00:00:00 00:00:00 Only Unassigned, YEVGENIY 350.1.13.[address] [place] [facility] 4.2.7.2.686 Ian as [phone] [facility] [address] [place] 2020-07-27 2020-07-27 Telephone [facility] [id number] Univers 00:00:00 00:00:00 Sendiva Macias 350.1.13.10 ity of [facility] [place].2.[place] [phone] [address] 2020-07-27 2020-07-27 Telephone [facility] [id number] Univers 00:00:00 00:00:00 Sendiva Macias 350.1.13.10 ity of [facility] [place].2.[place] [phone] [address] 2020-07-26 2020-07-26 Office [facility] [id number] Univers 14:25:36 15:12:16 Visit Anisa Macias 350.1.13.10 ity of [facility] [place].2.[place] [phone] [address] 2020-07-26 2020-07-26 Outpatient R ALEXANDRA [facility] [id number] Univers 14:30:00 14:30:00 SENDIL ity [facility] 2020-07-20 2020-07-20 Emergency Francis [facility] [id number] Univers 10:25:00 15:52:00 Dawn Macias 350.1.13.10 i ty of [facility] [place] [phone] [facility] [address] [place] 2020-07-20 2020-07-20 Emergency X [facility] ERT [id number] Univers 10:16:00 10:16:00 ity [facility] 2020-07-18 2020-07-18 Outpatient Tum[place]_A DMG DMG [id number] [facility] 01:42:00 01:42:00 0607 Medica l Group 2020-07-01 2020-07-01 [facility] [id number] 13:47:00 16:34:00 Josse Macias 350.1.13.10 [facility] 4.2.7.2.686 [place] [id number] 2020-07-01 2020-07-01 [facility] 1.2.840.114 [id number] [facility] 13:47:00 16:34:00 Nadegesasha Endy Macias 350.1.13.10 ity [facility] 4.2.7.2.686 [facility] [id number] [place] [address] [place] 2020-07-01 2020-07-01 Emergency X MARQUITA [facility] ERT [id number] [facility] 13:47:00 16:34:00 NADEGEO ity [facility] Results Test Description Test Time Test Comments Results Result Comments Source CULTURE, URINE 2021-07-05 SPECIMEN NUMBER: 09:14:59 [id number] CULTURE, URINE SPECIMEN NUMBER: [id number] SPECIMEN COMMENT: URINE SOURCE: URINE REPORT STATUS: FINAL FINAL REPORT: 07/05/2021 >100,000 CFU/ML MIXED MICROBIAL POPULATION PRESENT, NO PREDOMINATING ORGANISMS;PROBABLE CONTAMINANTS. CULTURE, URINE 2021-07-05 00:00:00 Test Item Value Reference Range Interpretation Comme nts CULTURE, URINE (test code = 76294) SPECIMEN NUMBER: [id number] CULTURE, [id number] 00:00:00 Test Item Value Reference Range Interpretation Comments CULTURE, URINE (test SPECIMEN NUMBER: code = 24300) [id number] CULTURE, [id number] 00:00:00 Test Item Value Reference Range Interpretation Comments CULTURE, URINE (test SPECIMEN NUMBER: code = 71963) [id number] CULTURE, [id number] 00:00:00 Test Item Value Reference Range Interpretation Comments CULTURE, URINE (test SPECIMEN NUMBER: code = 65980) [id number] CULTURE, [id number] 00:00:00 Test Item Value Reference Range Interpretation Comments CULTURE, URINE (test SPECIMEN NUMBER: code = 63552) [id number] VAGINAL PATHOGENS DNA [id number] 15:31:31 Test Item Value Reference Range Interpretation Comments DIANNA SPECIES (test NEGATIVE NEGATIVE code = 74490) G. VAGINALIS (test NEGATIVE NEGATIVE code = 62143) T. VAGINALIS (test NEGATIVE NEGATIVE UNLESS O THERWISE code = 80389) INDICATED, ALL TESTING PERFORMED [facility] PATHOLOGY [facility], [facility]. [address] [place] [address] 4 LABORATORY DIRE CTOR: ALYSSIA JETT M.D. CLIA NUMBER [id number] [place] [id number] VAGINAL PATHOGENS DNA [id number] 00:00:00 Test Item Value Reference Range Interpretation Comments DIANNA SPECIES (test code = 63375) NEGATIVE G. VAGINALIS (test code = 57150) NEGATIVE T. VAGINALIS (test code = 79096) NEGATIVE VAGINAL PATHOGENS DNA [id number] 00:00:00 Test Item Value Reference Range Interpretation Comments DIANNA SPECIES (test code = 47933) NEGATIVE G. VAGINALIS (test code = 25744) NEGATIVE T. VAGINALIS (test code = 10331) NEGATIVE VAGINAL PATHOGENS DNA [id number] 00:00:00 Test Item Value Reference Range Interpretation Comments DIANNA SPECIES (test code = 93053) NEGATIVE G. VAGINALIS (test code = 09333) NEGATIVE T. VAGINALIS (test code = 87477) NEGATIVE VAGINAL PATHOGENS DNA [id number] 00:00:00 Test Item Value Reference Range Interpretation Comments DIANNA SPECIES (test code = 36583) NEGATIVE G. VAGINALIS (test code = 96555) NEGATIVE T. VAGINALIS (test code = 19267) NEGATIVE VAGINAL PATHOGENS DNA [id number] 00:00:00 Test Item Value Reference Range Interpretation Comments DIANNA SPECIES (test code = 62232) NEGATIVE G. VAGINALIS (test code = 94920) NEGATIVE T. VAGINALIS (test code = 94473) NEGATIVE CULTURE, [id number] 12:43:02SPECIMEN NUMBER: [id number] CULTURE, URINE SPECIMEN NUMBER: [id number] SPECIMEN COMMENT: URINE SOURCE:URINE REPORT STATUS: FINAL ISOLATE NUMBER 1: ORGANISM: 04/28/2021 10-50,000 CFU/ML ENTEROCOCCUS SPEC IES (GROUP D) IDENTIFICATION: 04/29/2021 ENTEROCOCCUS SPECIES (GROUP D) ENTEROCOCCUS SP. AMPICILLIN SENSITIVE <=2CIPROFLOXACIN SENSITIVE <=1LEVOFLOXACIN SENSITIVE 1NITROFURANTOIN SENSITIVE <=32TETRACYCLINE RESISTANT >8VANCOMYCIN SENSITIVE 2 NOTE: NUMBERS DISPLAYED REPRESENTMINIMUM INHIBITORY CONCENTRATION (CHAYO) WHICH IS EXPRESSED IN MCG/ML.CULTURE, [id number] 00:00:00 Test Item Value Reference Range Interpretation Comments CULTURE, URINE (test SPECIMEN NUMBER: code = 42053) [id number] CULTURE, [id number] 00:00:00 Test Item Value Reference Range Interpretation Comments CULTURE, URINE (test SPECIMEN NUMBER: code = 44808) [id number] CULTURE, [id number] 00:00:00 Test Item Value Reference Range Interpretation Comments CULTURE, URINE (test SPECIMEN NUMBER: code = 10210) [id number] CULTURE, [id number] 00:00:00 Test Item Value Reference Range Interpretation Comments CULTURE, URINE (test SPECIMEN NUMBER: code = 80309) [id number] CULTURE, [id number] 00:00:00 Test Item Value Reference Range Interpretation Comments CULTURE, URINE (test SPECIMEN NUMBER: code = 69751) [id number] URINALYSIS WITH [id number] 07:51:12 Test Item Value Reference Range Interpretation [...] ed message] code = 1510) The system [employer] generated this result transmitted ref erence range: [...] CELLS (test 0-5 /HPF 0-10 code = 66111) BACTERIA (test code = 3+ NONE SEEN A 1515) CASTS, HYALINE (test TRACE NONE-TRACE UNLESS OTHERWISE code = 1517) INDICATED, ALL TESTING PERFORMED [facility] PATHOLOGY LAB[facility]IES, [facility]. [address] [place] [address] FOR[facility]LY [facility] DIRECTOR: ALYSSIA FRASER M.D. [place] NUMBER [id number] CAP ACCREDITATION N O. [id number] URINALYSIS WITH [id number] 00:00:00 Test Item Value Reference Range Interpretation Comments COLOR (test code = 1501) ORANGE APPEARANCE (test code = 1502) CLOUDY SPECIFIC GRAVITY (test code = 1503) 1.020 LEUKOCYTE ESTERASE (test code = 2+ 1504) NITRITE (test code = 1505) NEGATIVE pH (test code = 1506) 6.0 PROTEIN (test code = 1507) 3+ GLUCOSE (test code = 1508) NEGATIVE KETONES (test code = 1509) NEGATIVE UROBILINOGEN (test code = 1510) 0.2 MG/DL BILIRUBIN (test code = 1511) NEGATIVE OCCULT BLOOD (test code = 1512) 3+ WHITE BLOOD CELLS (test code = >50 /HPF 1513) RED BLOOD CELLS (test code = 1514) >50 /HPF EPITHELIAL CELLS (test code = 0-5 /HPF 56712) BACTERIA (test code = 1515) 3+ CASTS, HYALINE (test code = 1517) TRACE URINALYSIS WITH [id number] 00:00:00 Test Item Value Reference Range Interpretation Comments COLOR (test code = 1501) ORANGE APPEARANCE (test code = 1502) CLOUDY SPECIFIC GRAVITY (test code = 1503) 1.020 LEUKOCYTE ESTERASE (test code = 2+ 1504) NITRITE (test code = 1505) NEGATIVE pH (test code = 1506) 6.0 PROTEIN (test code = 1507) 3+ GLUCOSE (test code = 1508) NEGATIVE KETONES (test code = 1509) NEGATIVE UROBILINOGEN (test code = 1510) 0.2 MG/DL BILIRUBIN (test code = 1511) NEGATIVE OCCULT BLOOD (test code = 1512) 3+ WHITE BLOOD CELLS (test code = >50 /HPF 1513) RED BLOOD CELLS (test code = 1514) >50 /HPF EPITHELIAL CELLS (test code = 0-5 /HPF 18254) BACTERIA (test code = 1515) 3+ CASTS, HYALINE (test code = 1517) TRACE URINALYSIS WITH [id number] 00:00:00 Test Item Value Reference Range Interpretation Comments COLOR (test code = 1501) ORANGE APPEARANCE (test code = 1502) CLOUDY SPECIFIC GRAVITY (test code = 1503) 1.020 LEUKOCYTE ESTERASE (test code = 2+ 1504) NITRITE (test code = 1505) NEGATIVE pH (test code = 1506) 6.0 PROTEIN (test code = 1507) 3+ GLUCOSE (test code = 1508) NEGATIVE KETONES (test code = 1509) NEGATIVE UROBILINOGEN (test code = 1510) 0.2 MG/DL BILIRUBIN (test code = 1511) NEGATIVE OCCULT BLOOD (test code = 1512) 3+ WHITE BLOOD CELLS (test code = >50 /HPF 1513) RED BLOOD CELLS (test code = 1514) >50 /HPF EPITHELIAL CELLS (test code = 0-5 /HPF 86839) BACTERIA (test code = 1515) 3+ CASTS, HYALINE (test code = 1517) TRACE URINALYSIS WITH [id number] 00:00:00 Test Item Value Reference Range Interpretation Comments COLOR (test code = 1501) ORANGE APPEARANCE (test code = 1502) CLOUDY SPECIFIC GRAVITY (test code = 1503) 1.020 LEUKOCYTE ESTERASE (test code = 2+ 1504) NITRITE (test code = 1505) NEGATIVE pH (test code = 1506) 6.0 PROTEIN (test code = 1507) 3+ GLUCOSE (test code = 1508) NEGATIVE KETONES (test code = 1509) NEGATIVE UROBILINOGEN (test code = 1510) 0.2 MG/DL BILIRUBIN (test code = 1511) NEGATIVE OCCULT BLOOD (test code = 1512) 3+ WHITE BLOOD CELLS (test code = >50 /HPF 1513) RED BLOOD CELLS (test code = 1514) >50 /HPF EPITHELIAL CELLS (test code = 0-5 /HPF 57048) BACTERIA (test code = 1515) 3+ CASTS, HYALINE (test code = 1517) TRACE URINALYSIS WITH [id number] 00:00:00 Test Item Value Reference Range Interpretation Comments COLOR (test code = 1501) ORANGE APPEARANCE (test code = 1502) CLOUDY SPECIFIC GRAVITY (test code = 1503) 1.020 LEUKOCYTE ESTERASE (test code = 2+ 1504) NITRITE (test code = 1505) NEGATIVE pH (test code = 1506) 6.0 PROTEIN (test code = 1507) 3+ GLUCOSE (test code = 1508) NEGATIVE KETONES (test code = 1509) NEGATIVE UROBILINOGEN (test code = 1510) 0.2 MG/DL BILIRUBIN (test code = 1511) NEGATIVE OCCULT BLOOD (test code = 1512) 3+ WHITE BLOOD CELLS (test code = >50 /HPF 1513) RED BLOOD CELLS (test code = 1514) >50 /HPF EPITHELIAL CELLS (test code = 0-5 /HPF 81155) BACTERIA (test code = 1515) 3+ CASTS, HYALINE (test code = 1517) TRACE CBC W/AUTO [id number] 00:00:00 Test Item Value Reference Range Interpretation Comments WBC (test code = 1001) 2.1 K/UL RBC (test code = 1002) 3.50 M/UL HEMOGLOBIN (test code = 1003) 11.9 G/DL HEMATOCRIT (test code = 1004) 34.7 % MCV (test code = 1005) 99.1 fL MCH (test code = 1006) 34.0 PG MCHC (test code = 1007) 34.3 G/DL RDW (test code = 1038) 13.1 % NEUTROPHILS (test code = 1008) 25.7 % LYMPHOCYTES (test code = 1010) 56.3 % MONOCYTES (test code = 1011) 12.6 % EOSINOPHILS (test code = 1012) 3.4 % BASOPHILS (test code = 1013) 1.5 % IMMATURE GRANULOCYTES (test 0.5 % code = 1036) NUCLEATED RBCS (test code = 0.0 /100WBC'S 1065) PLATELET COUNT (test code = 181 K/UL 1015) ABSOLUTE NEUTROPHILS (test code 0.53 K/UL = 1066) ABSOLUTE LYMPHOCYTES (test code 1.16 K/UL = 1067) ABSOLUTE MONOCYTES (test code = 0.26 K/UL 1068) ABSOLUTE EOSINOPHILS (test code 0.07 K/UL = 1040) ABSOLUTE BASOPHILS (test code = 0.03 K/UL 1069) ABS IMMATURE GRANULOCYTES (test 0.01 K/UL code = 1020) ABS NUCLEATED RBCS (test code = 0.00 K/UL 67029) COMMENTS (test code = 1016) (NOTE) CBC W/AUTO [id number] 00:00:00 Test Item Value Reference Range Interpretation Comments WBC (test code = 1001) 2.1 K/UL RBC (test code = 1002) 3.50 M/UL HEMOGLOBIN (test code = 1003) 11.9 G/DL HEMATOCRIT (test code = 1004) 34.7 % MCV (test code = 1005) 99.1 fL MCH (test code = 1006) 34.0 PG MCHC (test code = 1007) 34.3 G/DL RDW (test code = 1038) 13.1 % NEUTROPHILS (test code = 1008) 25.7 % LYMPHOCYTES (test code = 1010) 56.3 % MONOCYTES (test code = 1011) 12.6 % EOSINOPHILS (test code = 1012) 3.4 % BASOPHILS (test code = 1013) 1.5 % IMMATURE GRANULOCYTES (test 0.5 % code = 1036) NUCLEATED RBCS (test code = 0.0 /100WBC'S 1065) PLATELET COUNT (test code = 181 K/UL 1015) ABSOLUTE NEUTROPHILS (test code 0.53 K/UL = 1066) ABSOLUTE LYMPHOCYTES (test code 1.16 K/UL = 1067) ABSOLUTE MONOCYTES (test code = 0.26 K/UL 1068) ABSOLUTE EOSINOPHILS (test code 0.07 K/UL = 1040) ABSOLUTE BASOPHILS (test code = 0.03 K/UL 1069) ABS IMMATURE GRANULOCYTES (test 0.01 K/UL code = 1020) ABS NUCLEATED RBCS (test code = 0.00 K/UL 80955) COMMENTS (test code = 1016) (NOTE) CBC W/AUTO [id number] 00:00:00 Test Item Value Reference Range Interpretation Comments WBC (test code = 1001) 2.1 K/UL RBC (test code = 1002) 3.50 M/UL HEMOGLOBIN (test code = 1003) 11.9 G/DL HEMATOCRIT (test code = 1004) 34.7 % MCV (test code = 1005) 99.1 fL MCH (test code = 1006) 34.0 PG MCHC (test code = 1007) 34.3 G/DL RDW (test code = 1038) 13.1 % NEUTROPHILS (test code = 1008) 25.7 % LYMPHOCYTES (test code = 1010) 56.3 % MONOCYTES (test code = 1011) 12.6 % EOSINOPHILS (test code = 1012) 3.4 % BASOPHILS (test code = 1013) 1.5 % IMMATURE GRANULOCYTES (test 0.5 % code = 1036) NUCLEATED RBCS (test code = 0.0 /100WBC'S 1065) PLATELET COUNT (test code = 181 K/UL 1015) ABSOLUTE NEUTROPHILS (test code 0.53 K/UL = 1066) ABSOLUTE LYMPHOCYTES (test code 1.16 K/UL = 1067) ABSOLUTE MONOCYTES (test code = 0.26 K/UL 1068) ABSOLUTE EOSINOPHILS (test code 0.07 K/UL = 1040) ABSOLUTE BASOPHILS (test code = 0.03 K/UL 1069) ABS IMMATURE GRANULOCYTES (test 0.01 K/UL code = 1020) ABS NUCLEATED RBCS (test code = 0.00 K/UL 28138) COMMENTS (test code = 1016) (NOTE) LIPID [id number] 00:00:00 Test Item Value Reference Range Interpretation Comments CHOLESTEROL (test code = 2210) 174 MG/DL TRIGLYCERIDES (test code = 2232) 63 MG/DL HDL CHOLESTEROL (test code = 2220) 87 MG/DL CALC LDL CHOL (test code = 2237) 73 MG/DL RISK RATIO LDL/HDL (test code = 0.84 RATIO 2238) LIPID [id number] 00:00:00 Test Item Value Reference Range Interpretation Comments CHOLESTEROL (test code = 2210) 174 MG/DL TRIGLYCERIDES (test code = 2232) 63 MG/DL HDL CHOLESTEROL (test code = 2220) 87 MG/DL CALC LDL CHOL (test code = 2237) 73 MG/DL RISK RATIO LDL/HDL (test code = 0.84 RATIO 2238) COMPREHENSIVE METABOLIC [id number] 00:00:00 Test Item Value Reference Range Interpretation Comments GLUCOSE (test code = 2217) 80 MG/DL BUN (test code = 2208) 18 MG/DL CREATININE (test code = 2214) 1.06 MG/DL eGFR AMER. (test code 67 ML/MIN/1.73 = 83422) eGFR NON- AMER. (test 58 ML/MIN/1.73 code = 80168) CALC BUN/CREAT (test code = 17 RATIO 2235) SODIUM (test code = 2231) 139 MEQ/L POTASSIUM (test code = 2228) 3.8 MEQ/L CHLORIDE (test code = 2215) 109 MEQ/L CARBON DIOXIDE (test code = 20 MEQ/L 2206) CALCIUM (test code = 2209) 9.9 MG/DL PROTEIN, TOTAL (test code = 9.8 G/DL 222) ALBUMIN (test code = 2201) 3.9 G/DL CALC GLOBULIN (test code = 5.9 G/DL 2240) CALC A/G RATIO (test code = 0.7 RATIO 2234) BILIRUBIN, TOTAL (test code = 0.2 MG/DL 2206) ALKALINE PHOSPHATASE (test 79 U/L code = 2204) AST (test code = 2218) 75 U/L ALT (test code = 2219) 54 U/L COMPREHENSIVE METABOLIC [id number] 00:00:00 Test Item Value Reference Range Interpretation Comments GLUCOSE (test code = 2217) 80 MG/DL BUN (test code = 2208) 18 MG/DL CREATININE (test code = 2214) 1.06 MG/DL eGFR AMER. (test code 67 ML/MIN/1.73 = 00356) eGFR NON- AMER. (test 58 ML/MIN/1.73 code = 75515) CALC BUN/CREAT (test code = 17 RATIO 2235) SODIUM (test code = 2231) 139 MEQ/L POTASSIUM (test code = 2228) 3.8 MEQ/L CHLORIDE (test code = 2215) 109 MEQ/L CARBON DIOXIDE (test code = 20 MEQ/L 220) CALCIUM (test code = 2209) 9.9 MG/DL PROTEIN, TOTAL (test code = 9.8 G/DL 2228) ALBUMIN (test code = 2201) 3.9 G/DL CALC GLOBULIN (test code = 5.9 G/DL 2240) CALC A/G RATIO (test code = 0.7 RATIO 2234) BILIRUBIN, TOTAL (test code = 0.2 MG/DL 2206) ALKALINE PHOSPHATASE (test 79 U/L code = 2204) AST (test code = 2218) 75 U/L ALT (test code = 2219) 54 U/L CBC W/AUTO [id number] 00:00:00 Test Item Value Reference Range Interpretation Comments WBC (test code = 1001) 2.1 K/UL RBC (test code = 1002) 3.50 M/UL HEMOGLOBIN (test code = 1003) 11.9 G/DL HEMATOCRIT (test code = 1004) 34.7 % MCV (test code = 1005) 99.1 fL MCH (test code = 1006) 34.0 PG MCHC (test code = 1007) 34.3 G/DL RDW (test code = 1038) 13.1 % NEUTROPHILS (test code = 1008) 25.7 % LYMPHOCYTES (test code = 1010) 56.3 % MONOCYTES (test code = 1011) 12.6 % EOSINOPHILS (test code = 1012) 3.4 % BASOPHILS (test code = 1013) 1.5 % IMMATURE GRANULOCYTES (test 0.5 % code = 1036) NUCLEATED RBCS (test code = 0.0 /100WBC'S 1065) PLATELET COUNT (test code = 181 K/UL 1015) ABSOLUTE NEUTROPHILS (test code 0.53 K/UL = 1066) ABSOLUTE LYMPHOCYTES (test code 1.16 K/UL = 1067) ABSOLUTE MONOCYTES (test code = 0.26 K/UL 1068) ABSOLUTE EOSINOPHILS (test code 0.07 K/UL = 1040) ABSOLUTE BASOPHILS (test code = 0.03 K/UL 1069) ABS IMMATURE GRANULOCYTES (test 0.01 K/UL code = 1020) ABS NUCLEATED RBCS (test code = 0.00 K/UL 24387) COMMENTS (test code = 1016) (NOTE) CBC W/AUTO [id number] 00:00:00 Test Item Value Reference Range Interpretation Comments WBC (test code = 1001) 2.1 K/UL RBC (test code = 1002) 3.50 M/UL HEMOGLOBIN (test code = 1003) 11.9 G/DL HEMATOCRIT (test code = 1004) 34.7 % MCV (test code = 1005) 99.1 fL MCH (test code = 1006) 34.0 PG MCHC (test code = 1007) 34.3 G/DL RDW (test code = 1038) 13.1 % NEUTROPHILS (test code = 1008) 25.7 % LYMPHOCYTES (test code = 1010) 56.3 % MONOCYTES (test code = 1011) 12.6 % EOSINOPHILS (test code = 1012) 3.4 % BASOPHILS (test code = 1013) 1.5 % IMMATURE GRANULOCYTES (test 0.5 % code = 1036) NUCLEATED RBCS (test code = 0.0 /100WBC'S 1065) PLATELET COUNT (test code = 181 K/UL 1015) ABSOLUTE NEUTROPHILS (test code 0.53 K/UL = 1066) ABSOLUTE LYMPHOCYTES (test code 1.16 K/UL = 1067) ABSOLUTE MONOCYTES (test code = 0.26 K/UL 1068) ABSOLUTE EOSINOPHILS (test code 0.07 K/UL = 1040) ABSOLUTE BASOPHILS (test code = 0.03 K/UL 1069) ABS IMMATURE GRANULOCYTES (test 0.01 K/UL code = 1020) ABS NUCLEATED RBCS (test code = 0.00 K/UL 95158) COMMENTS (test code = 1016) (NOTE) LIPID [id number] 00:00:00 Test Item Value Reference Range Interpretation Comments CHOLESTEROL (test code = 2210) 174 MG/DL TRIGLYCERIDES (test code = 2232) 63 MG/DL HDL CHOLESTEROL (test code = 2220) 87 MG/DL CALC LDL CHOL (test code = 2237) 73 MG/DL RISK RATIO LDL/HDL (test code = 0.84 RATIO 2238) COMPREHENSIVE METABOLIC [id number] 00:00:00 Test Item Value Reference Range Interpretation Comments GLUCOSE (test code = 2217) 80 MG/DL BUN (test code = 2208) 18 MG/DL CREATININE (test code = 2214) 1.06 MG/DL eGFR AMER. (test code 67 ML/MIN/1.73 = 73610) eGFR NON- AMER. (test 58 ML/MIN/1.73 code = 86150) CALC BUN/CREAT (test code = 17 RATIO 2235) SODIUM (test code = 2231) 139 MEQ/L POTASSIUM (test code = 2228) 3.8 MEQ/L CHLORIDE (test code = 2215) 109 MEQ/L CARBON DIOXIDE (test code = 20 MEQ/L 220) CALCIUM (test code = 2209) 9.9 MG/DL PROTEIN, TOTAL (test code = 9.8 G/DL 2228) ALBUMIN (test code = 2201) 3.9 G/DL CALC GLOBULIN (test code = 5.9 G/DL 2240) CALC A/G RATIO (test code = 0.7 RATIO 2234) BILIRUBIN, TOTAL (test code = 0.2 MG/DL 2207) ALKALINE PHOSPHATASE (test 79 U/L code = 2204) AST (test code = 2218) 75 U/L ALT (test code = 2219) 54 U/L CBC W/AUTO [id number] 00:00:00 Test Item Value Reference Range Interpretation Comments WBC (test code = 1001) 2.1 K/UL RBC (test code = 1002) 3.50 M/UL HEMOGLOBIN (test code = 1003) 11.9 G/DL HEMATOCRIT (test code = 1004) 34.7 % MCV (test code = 1005) 99.1 fL MCH (test code = 1006) 34.0 PG MCHC (test code = 1007) 34.3 G/DL RDW (test code = 1038) 13.1 % NEUTROPHILS (test code = 1008) 25.7 % LYMPHOCYTES (test code = 1010) 56.3 % MONOCYTES (test code = 1011) 12.6 % EOSINOPHILS (test code = 1012) 3.4 % BASOPHILS (test code = 1013) 1.5 % IMMATURE GRANULOCYTES (test 0.5 % code = 1036) NUCLEATED RBCS (test code = 0.0 /100WBC'S 1065) PLATELET COUNT (test code = 181 K/UL 1015) ABSOLUTE NEUTROPHILS (test code 0.53 K/UL = 1066) ABSOLUTE LYMPHOCYTES (test code 1.16 K/UL = 1067) ABSOLUTE MONOCYTES (test code = 0.26 K/UL 1068) ABSOLUTE EOSINOPHILS (test code 0.07 K/UL = 1040) ABSOLUTE BASOPHILS (test code = 0.03 K/UL 1069) ABS IMMATURE GRANULOCYTES (test 0.01 K/UL code = 1020) ABS NUCLEATED RBCS (test code = 0.00 K/UL 39664) COMMENTS (test code = 1016) (NOTE) CBC W/AUTO [id number] 00:00:00 Test Item Value Reference Range Interpretation Comments WBC (test code = 1001) 2.1 K/UL RBC (test code = 1002) 3.50 M/UL HEMOGLOBIN (test code = 1003) 11.9 G/DL HEMATOCRIT (test code = 1004) 34.7 % MCV (test code = 1005) 99.1 fL MCH (test code = 1006) 34.0 PG MCHC (test code = 1007) 34.3 G/DL RDW (test code = 1038) 13.1 % NEUTROPHILS (test code = 1008) 25.7 % LYMPHOCYTES (test code = 1010) 56.3 % MONOCYTES (test code = 1011) 12.6 % EOSINOPHILS (test code = 1012) 3.4 % BASOPHILS (test code = 1013) 1.5 % IMMATURE GRANULOCYTES (test 0.5 % code = 1036) NUCLEATED RBCS (test code = 0.0 /100WBC'S 1065) PLATELET COUNT (test code = 181 K/UL 1015) ABSOLUTE NEUTROPHILS (test code 0.53 K/UL = 1066) ABSOLUTE LYMPHOCYTES (test code 1.16 K/UL = 1067) ABSOLUTE MONOCYTES (test code = 0.26 K/UL 1068) ABSOLUTE EOSINOPHILS (test code 0.07 K/UL = 1040) ABSOLUTE BASOPHILS (test code = 0.03 K/UL 1069) ABS IMMATURE GRANULOCYTES (test 0.01 K/UL code = 1020) ABS NUCLEATED RBCS (test code = 0.00 K/UL 78255) COMMENTS (test code = 1016) (NOTE) CBC W/AUTO [id number] 00:00:00 Test Item Value Reference Range Interpretation Comments WBC (test code = 1001) 2.1 K/UL RBC (test code = 1002) 3.50 M/UL HEMOGLOBIN (test code = 1003) 11.9 G/DL HEMATOCRIT (test code = 1004) 34.7 % MCV (test code = 1005) 99.1 fL MCH (test code = 1006) 34.0 PG MCHC (test code = 1007) 34.3 G/DL RDW (test code = 1038) 13.1 % NEUTROPHILS (test code = 1008) 25.7 % LYMPHOCYTES (test code = 1010) 56.3 % MONOCYTES (test code = 1011) 12.6 % EOSINOPHILS (test code = 1012) 3.4 % BASOPHILS (test code = 1013) 1.5 % IMMATURE GRANULOCYTES (test 0.5 % code = 1036) NUCLEATED RBCS (test code = 0.0 /100WBC'S 1065) PLATELET COUNT (test code = 181 K/UL 1015) ABSOLUTE NEUTROPHILS (test code 0.53 K/UL = 1066) ABSOLUTE LYMPHOCYTES (test code 1.16 K/UL = 1067) ABSOLUTE MONOCYTES (test code = 0.26 K/UL 1068) ABSOLUTE EOSINOPHILS (test code 0.07 K/UL = 1040) ABSOLUTE BASOPHILS (test code = 0.03 K/UL 1069) ABS IMMATURE GRANULOCYTES (test 0.01 K/UL code = 1020) ABS NUCLEATED RBCS (test code = 0.00 K/UL 05910) COMMENTS (test code = 1016) (NOTE) LIPID [id number] 00:00:00 Test Item Value Reference Range Interpretation Comments CHOLESTEROL (test code = 2210) 174 MG/DL TRIGLYCERIDES (test code = 2232) 63 MG/DL HDL CHOLESTEROL (test code = 2220) 87 MG/DL CALC LDL CHOL (test code = 2237) 73 MG/DL RISK RATIO LDL/HDL (test code = 0.84 RATIO 2238) LIPID [id number] 00:00:00 Test Item Value Reference Range Interpretation Comments CHOLESTEROL (test code = 2210) 174 MG/DL TRIGLYCERIDES (test code = 2232) 63 MG/DL HDL CHOLESTEROL (test code = 2220) 87 MG/DL CALC LDL CHOL (test code = 2237) 73 MG/DL RISK RATIO LDL/HDL (test code = 0.84 RATIO 2238) COMPREHENSIVE METABOLIC [id number] 00:00:00 Test Item Value Reference Range Interpretation Comments GLUCOSE (test code = 2217) 80 MG/DL BUN (test code = 2208) 18 MG/DL CREATININE (test code = 2214) 1.06 MG/DL eGFR AMER. (test code 67 ML/MIN/1.73 = 40083) eGFR NON- AMER. (test 58 ML/MIN/1.73 code = 65188) CALC BUN/CREAT (test code = 17 RATIO 2235) SODIUM (test code = 2231) 139 MEQ/L POTASSIUM (test code = 2228) 3.8 MEQ/L CHLORIDE (test code = 2215) 109 MEQ/L CARBON DIOXIDE (test code = 20 MEQ/L 2206) CALCIUM (test code = 2209) 9.9 MG/DL PROTEIN, TOTAL (test code = 9.8 G/DL 2228) ALBUMIN (test code = 2201) 3.9 G/DL CALC GLOBULIN (test code = 5.9 G/DL 2240) CALC A/G RATIO (test code = 0.7 RATIO 2234) BILIRUBIN, TOTAL (test code = 0.2 MG/DL 2207) ALKALINE PHOSPHATASE (test 79 U/L code = 2204) AST (test code = 2218) 75 U/L ALT (test code = 2219) 54 U/L COMPREHENSIVE METABOLIC [id number] 00:00:00 Test Item Value Reference Range Interpretation Comments GLUCOSE (test code = 2217) 80 MG/DL BUN (test code = 2208) 18 MG/DL CREATININE (test code = 2214) 1.06 MG/DL eGFR AMER. (test code 67 ML/MIN/1.73 = 53266) eGFR NON- AMER. (test 58 ML/MIN/1.73 code = 01921) CALC BUN/CREAT (test code = 17 RATIO 2235) SODIUM (test code = 2231) 139 MEQ/L POTASSIUM (test code = 2228) 3.8 MEQ/L CHLORIDE (test code = 2215) 109 MEQ/L CARBON DIOXIDE (test code = 20 MEQ/L 2206) CALCIUM (test code = 2209) 9.9 MG/DL PROTEIN, TOTAL (test code = 9.8 G/DL 2229) ALBUMIN (test code = 2201) 3.9 G/DL CALC GLOBULIN (test code = 5.9 G/DL 2240) CALC A/G RATIO (test code = 0.7 RATIO 2234) BILIRUBIN, TOTAL (test code = 0.2 MG/DL 2207) ALKALINE PHOSPHATASE (test 79 U/L code = 2204) AST (test code = 2218) 75 U/L ALT (test code = 2219) 54 U/L SARS-CoV-2 (COVID-19) by RT-PCR (HIGH RISK)2020-01-21 00:00:00 Test Item Value Reference Range Interpretation Comments SARS-CoV-2 INTERPRETATION (test NEGATIVE code = 39884) SOURCE (test code = 54737) NOT SPECIFIED SARS-CoV-2 (COVID-19) by RT-PCR (HIGH RISK)2020-01-21 00:00:00 Test Item Value Reference Range Interpretation Comments SARS-CoV-2 INTERPRETATION (test NEGATIVE code = 92612) SOURCE (test code = 67722) NOT SPECIFIED SARS-CoV-2 (COVID-19) by RT-PCR (HIGH RISK)2020-01-21 00:00:00 Test Item Value Reference Range Interpretation Comments SARS-CoV-2 INTERPRETATION (test NEGATIVE code = 66666) SOURCE (test code = 42023) NOT SPECIFIED SARS-CoV-2 (COVID-19) by RT-PCR (HIGH RISK)2020-01-21 00:00:00 Test Item Value Reference Range Interpretation Comments SARS-CoV-2 INTERPRETATION (test NEGATIVE code = 71298) SOURCE (test code = 46201) NOT SPECIFIED SARS-CoV-2 (COVID-19) by RT-PCR (HIGH RISK)2020-01-21 00:00:00 Test Item Value Reference Range Interpretation Comments SARS-CoV-2 INTERPRETATION (test NEGATIVE code = 31624) SOURCE (test code = 55881) NOT SPECIFIED COMPREHENSIVE METABOLIC [id number] 00:00:00 Test Item Value Reference Range Interpretation Comments GLUCOSE (test code = 2217) 86 MG/DL BUN (test code = 2208) 16 MG/DL CREATININE (test code = 2214) 0.90 MG/DL eGFR AMER. (test code 83 ML/MIN/1.73 = 80154) eGFR NON- AMER. (test 71 ML/MIN/1.73 code = 08954) CALC BUN/CREAT (test code = 18 RATIO 2235) SODIUM (test code = 2231) 139 MEQ/L POTASSIUM (test code = 2228) 4.1 MEQ/L CHLORIDE (test code = 2215) 110 MEQ/L CARBON DIOXIDE (test code = 19 MEQ/L 2205) CALCIUM (test code = 2209) 10.0 MG/DL PROTEIN, TOTAL (test code = 9.5 G/DL 2228) ALBUMIN (test code = 2201) 4.1 G/DL CALC GLOBULIN (test code = 5.4 G/DL 2240) CALC A/G RATIO (test code = 0.8 RATIO 2233) BILIRUBIN, TOTAL (test code = 0.4 MG/DL 2206) ALKALINE PHOSPHATASE (test 80 U/L code = 2204) AST (test code = 2218) 38 U/L ALT (test code = 2219) 29 U/L COMPREHENSIVE METABOLIC [id number] 00:00:00 Test Item Value Reference Range Interpretation Comments GLUCOSE (test code = 2217) 86 MG/DL BUN (test code = 2208) 16 MG/DL CREATININE (test code = 2214) 0.90 MG/DL eGFR AMER. (test code 83 ML/MIN/1.73 = 23120) eGFR NON- AMER. (test 71 ML/MIN/1.73 code = 71017) CALC BUN/CREAT (test code = 18 RATIO 2235) SODIUM (test code = 2231) 139 MEQ/L POTASSIUM (test code = 2228) 4.1 MEQ/L CHLORIDE (test code = 2215) 110 MEQ/L CARBON DIOXIDE (test code = 19 MEQ/L 2205) CALCIUM (test code = 2209) 10.0 MG/DL PROTEIN, TOTAL (test code = 9.5 G/DL 2228) ALBUMIN (test code = 2201) 4.1 G/DL CALC GLOBULIN (test code = 5.4 G/DL 2239) CALC A/G RATIO (test code = 0.8 RATIO 2233) BILIRUBIN, TOTAL (test code = 0.4 MG/DL 2206) ALKALINE PHOSPHATASE (test 80 U/L code = 2204) AST (test code = 2218) 38 U/L ALT (test code = 2219) 29 U/L CBC W/AUTO [id number] 00:00:00 Test Item Value Reference Range Interpretation Comments WBC (test code = 1001) 3.0 K/UL RBC (test code = 1002) 3.34 M/UL HEMOGLOBIN (test code = 1003) 12.0 G/DL HEMATOCRIT (test code = 1004) 34.1 % MCV (test code = 1005) 102.1 fL MCH (test code = 1006) 35.9 PG MCHC (test code = 1007) 35.2 G/DL RDW (test code = 1038) 14.4 % NEUTROPHILS (test code = 1008) 35.0 % LYMPHOCYTES (test code = 1010) 50.2 % MONOCYTES (test code = 1011) 11.1 % EOSINOPHILS (test code = 1012) 2.4 % BASOPHILS (test code = 1013) 1.3 % PLATELET COUNT (test code = 1015) 186 K/UL CBC W/AUTO [id number] 00:00:00 Test Item Value Reference Range Interpretation Comments WBC (test code = 1001) 3.0 K/UL RBC (test code = 1002) 3.34 M/UL HEMOGLOBIN (test code = 1003) 12.0 G/DL HEMATOCRIT (test code = 1004) 34.1 % MCV (test code = 1005) 102.1 fL MCH (test code = 1006) 35.9 PG MCHC (test code = 1007) 35.2 G/DL RDW (test code = 1038) 14.4 % NEUTROPHILS (test code = 1008) 35.0 % LYMPHOCYTES (test code = 1010) 50.2 % MONOCYTES (test code = 1011) 11.1 % EOSINOPHILS (test code = 1012) 2.4 % BASOPHILS (test code = 1013) 1.3 % PLATELET COUNT (test code = 1015) 186 K/UL CBC W/AUTO [id number] 00:00:00 Test Item Value Reference Range Interpretation Comments WBC (test code = 1001) 3.0 K/UL RBC (test code = 1002) 3.34 M/UL HEMOGLOBIN (test code = 1003) 12.0 G/DL HEMATOCRIT (test code = 1004) 34.1 % MCV (test code = 1005) 102.1 fL MCH (test code = 1006) 35.9 PG MCHC (test code = 1007) 35.2 G/DL RDW (test code = 1038) 14.4 % NEUTROPHILS (test code = 1008) 35.0 % LYMPHOCYTES (test code = 1010) 50.2 % MONOCYTES (test code = 1011) 11.1 % EOSINOPHILS (test code = 1012) 2.4 % BASOPHILS (test code = 1013) 1.3 % PLATELET COUNT (test code = 1015) 186 K/UL COMPREHENSIVE METABOLIC [id number] 00:00:00 Test Item Value Reference Range Interpretation Comments GLUCOSE (test code = 2217) 86 MG/DL BUN (test code = 2208) 16 MG/DL CREATININE (test code = 2214) 0.90 MG/DL eGFR AMER. (test code 83 ML/MIN/1.73 = 59566) eGFR NON- AMER. (test 71 ML/MIN/1.73 code = 15028) CALC BUN/CREAT (test code = 18 RATIO 2235) SODIUM (test code = 2231) 139 MEQ/L POTASSIUM (test code = 2228) 4.1 MEQ/L CHLORIDE (test code = 2215) 110 MEQ/L CARBON DIOXIDE (test code = 19 MEQ/L 2205) CALCIUM (test code = 2209) 10.0 MG/DL PROTEIN, TOTAL (test code = 9.5 G/DL 2228) ALBUMIN (test code = 2201) 4.1 G/DL CALC GLOBULIN (test code = 5.4 G/DL 2239) CALC A/G RATIO (test code = 0.8 RATIO 2233) BILIRUBIN, TOTAL (test code = 0.4 MG/DL 2206) ALKALINE PHOSPHATASE (test 80 U/L code = 2204) AST (test code = 2218) 38 U/L ALT (test code = 2219) 29 U/L CBC W/AUTO [id number] 00:00:00 Test Item Value Reference Range Interpretation Comments WBC (test code = 1001) 3.0 K/UL RBC (test code = 1002) 3.34 M/UL HEMOGLOBIN (test code = 1003) 12.0 G/DL HEMATOCRIT (test code = 1004) 34.1 % MCV (test code = 1005) 102.1 fL MCH (test code = 1006) 35.9 PG MCHC (test code = 1007) 35.2 G/DL RDW (test code = 1038) 14.4 % NEUTROPHILS (test code = 1008) 35.0 % LYMPHOCYTES (test code = 1010) 50.2 % MONOCYTES (test code = 1011) 11.1 % EOSINOPHILS (test code = 1012) 2.4 % BASOPHILS (test code = 1013) 1.3 % PLATELET COUNT (test code = 1015) 186 K/UL CBC W/AUTO [id number] 00:00:00 Test Item Value Reference Range Interpretation Comments WBC (test code = 1001) 3.0 K/UL RBC (test code = 1002) 3.34 M/UL HEMOGLOBIN (test code = 1003) 12.0 G/DL HEMATOCRIT (test code = 1004) 34.1 % MCV (test code = 1005) 102.1 fL MCH (test code = 1006) 35.9 PG MCHC (test code = 1007) 35.2 G/DL RDW (test code = 1038) 14.4 % NEUTROPHILS (test code = 1008) 35.0 % LYMPHOCYTES (test code = 1010) 50.2 % MONOCYTES (test code = 1011) 11.1 % EOSINOPHILS (test code = 1012) 2.4 % BASOPHILS (test code = 1013) 1.3 % PLATELET COUNT (test code = 1015) 186 K/UL COMPREHENSIVE METABOLIC [id number] 00:00:00 Test Item Value Reference Range Interpretation Comments GLUCOSE (test code = 2217) 86 MG/DL BUN (test code = 2208) 16 MG/DL CREATININE (test code = 2214) 0.90 MG/DL eGFR AMER. (test code 83 ML/MIN/1.73 = 47274) eGFR NON- AMER. (test 71 ML/MIN/1.73 code = 94052) CALC BUN/CREAT (test code = 18 RATIO 2235) SODIUM (test code = 2231) 139 MEQ/L POTASSIUM (test code = 2228) 4.1 MEQ/L CHLORIDE (test code = 2215) 110 MEQ/L CARBON DIOXIDE (test code = 19 MEQ/L 2205) CALCIUM (test code = 2209) 10.0 MG/DL PROTEIN, TOTAL (test code = 9.5 G/DL 2228) ALBUMIN (test code = 2201) 4.1 G/DL CALC GLOBULIN (test code = 5.4 G/DL 2240) CALC A/G RATIO (test code = 0.8 RATIO 4) BILIRUBIN, TOTAL (test code = 0.4 MG/DL 2206) ALKALINE PHOSPHATASE (test 80 U/L code = 2204) AST (test code = 2218) 38 U/L ALT (test code = 2219) 29 U/L COMPREHENSIVE METABOLIC [id number] 00:00:00 Test Item Value Reference Range Interpretation Comments GLUCOSE (test code = 2217) 86 MG/DL BUN (test code = 2208) 16 MG/DL CREATININE (test code = 2214) 0.90 MG/DL eGFR AMER. (test code 83 ML/MIN/1.73 = 59439) eGFR NON- AMER. (test 71 ML/MIN/1.73 code = 05783) CALC BUN/CREAT (test code = 18 RATIO 2235) SODIUM (test code = 2231) 139 MEQ/L POTASSIUM (test code = 2228) 4.1 MEQ/L CHLORIDE (test code = 2215) 110 MEQ/L CARBON DIOXIDE (test code = 19 MEQ/L 2205) CALCIUM (test code = 2209) 10.0 MG/DL PROTEIN, TOTAL (test code = 9.5 G/DL 2228) ALBUMIN (test code = 2201) 4.1 G/DL CALC GLOBULIN (test code = 5.4 G/DL 2239) CALC A/G RATIO (test code = 0.8 RATIO 2233) BILIRUBIN, TOTAL (test code = 0.4 MG/DL 2206) ALKALINE PHOSPHATASE (test 80 U/L code = 2204) AST (test code = 2218) 38 U/L ALT (test code = 2219) 29 U/L CBC W/AUTO [id number] 00:00:00 Test Item Value Reference Range Interpretation Comments WBC (test code = 1001) 3.0 K/UL RBC (test code = 1002) 3.34 M/UL HEMOGLOBIN (test code = 1003) 12.0 G/DL HEMATOCRIT (test code = 1004) 34.1 % MCV (test code = 1005) 102.1 fL MCH (test code = 1006) 35.9 PG MCHC (test code = 1007) 35.2 G/DL RDW (test code = 1038) 14.4 % NEUTROPHILS (test code = 1008) 35.0 % LYMPHOCYTES (test code = 1010) 50.2 % MONOCYTES (test code = 1011) 11.1 % EOSINOPHILS (test code = 1012) 2.4 % BASOPHILS (test code = 1013) 1.3 % PLATELET COUNT (test code = 1015) 186 K/UL CBC W/AUTO [id number] 00:00:00 Test Item Value Reference Range Interpretation Comments WBC (test code = 1001) 3.0 K/UL RBC (test code = 1002) 3.34 M/UL HEMOGLOBIN (test code = 1003) 12.0 G/DL HEMATOCRIT (test code = 1004) 34.1 % MCV (test code = 1005) 102.1 fL MCH (test code = 1006) 35.9 PG MCHC (test code = 1007) 35.2 G/DL RDW (test code = 1038) 14.4 % NEUTROPHILS (test code = 1008) 35.0 % LYMPHOCYTES (test code = 1010) 50.2 % MONOCYTES (test code = 1011) 11.1 % EOSINOPHILS (test code = 1012) 2.4 % BASOPHILS (test code = 1013) 1.3 % PLATELET COUNT (test code = 1015) 186 K/UL CBC W/AUTO [id number] 00:00:00 Test Item Value Reference Range Interpretation Comments WBC (test code = 1001) 3.0 K/UL RBC (test code = 1002) 3.34 M/UL HEMOGLOBIN (test code = 1003) 12.0 G/DL HEMATOCRIT (test code = 1004) 34.1 % MCV (test code = 1005) 102.1 fL MCH (test code = 1006) 35.9 PG MCHC (test code = 1007) 35.2 G/DL RDW (test code = 1038) 14.4 % NEUTROPHILS (test code = 1008) 35.0 % LYMPHOCYTES (test code = 1010) 50.2 % MONOCYTES (test code = 1011) 11.1 % EOSINOPHILS (test code = 1012) 2.4 % BASOPHILS (test code = 1013) 1.3 % PLATELET COUNT (test code = 1015) 186 K/UL CBC W/AUTO [id number] 00:00:00 Test Item Value Reference Range Interpretation Comments WBC (test code = 1001) 2.4 K/UL RBC (test code = 1002) 3.81 M/UL HEMOGLOBIN (test code = 1003) 12.1 G/DL HEMATOCRIT (test code = 1004) 36.7 % MCV (test code = 1005) 96.3 fL MCH (test code = 1006) 31.8 PG MCHC (test code = 1007) 33.0 G/DL RDW (test code = 1038) 17.9 % NEUTROPHILS (test code = 1008) 39.6 % LYMPHOCYTES (test code = 1010) 46.5 % MONOCYTES (test code = 1011) 12.3 % EOSINOPHILS (test code = 1012) 0.8 % BASOPHILS (test code = 1013) 0.8 % PLATELET COUNT (test code = 1015) 167 K/UL COMMENTS (test code = 1016) (NOTE) CBC W/AUTO [id number] 00:00:00 Test Item Value Reference Range Interpretation Comments WBC (test code = 1001) 2.4 K/UL RBC (test code = 1002) 3.81 M/UL HEMOGLOBIN (test code = 1003) 12.1 G/DL HEMATOCRIT (test code = 1004) 36.7 % MCV (test code = 1005) 96.3 fL MCH (test code = 1006) 31.8 PG MCHC (test code = 1007) 33.0 G/DL RDW (test code = 1038) 17.9 % NEUTROPHILS (test code = 1008) 39.6 % LYMPHOCYTES (test code = 1010) 46.5 % MONOCYTES (test code = 1011) 12.3 % EOSINOPHILS (test code = 1012) 0.8 % BASOPHILS (test code = 1013) 0.8 % PLATELET COUNT (test code = 1015) 167 K/UL COMMENTS (test code = 1016) (NOTE) CBC W/AUTO [id number] 00:00:00 Test Item Value Reference Range Interpretation Comments WBC (test code = 1001) 2.4 K/UL RBC (test code = 1002) 3.81 M/UL HEMOGLOBIN (test code = 1003) 12.1 G/DL HEMATOCRIT (test code = 1004) 36.7 % MCV (test code = 1005) 96.3 fL MCH (test code = 1006) 31.8 PG MCHC (test code = 1007) 33.0 G/DL RDW (test code = 1038) 17.9 % NEUTROPHILS (test code = 1008) 39.6 % LYMPHOCYTES (test code = 1010) 46.5 % MONOCYTES (test code = 1011) 12.3 % EOSINOPHILS (test code = 1012) 0.8 % BASOPHILS (test code = 1013) 0.8 % PLATELET COUNT (test code = 1015) 167 K/UL COMMENTS (test code = 1016) (NOTE) CBC W/AUTO [id number] 00:00:00 Test Item Value Reference Range Interpretation Comments WBC (test code = 1001) 2.4 K/UL RBC (test code = 1002) 3.81 M/UL HEMOGLOBIN (test code = 1003) 12.1 G/DL HEMATOCRIT (test code = 1004) 36.7 % MCV (test code = 1005) 96.3 fL MCH (test code = 1006) 31.8 PG MCHC (test code = 1007) 33.0 G/DL RDW (test code = 1038) 17.9 % NEUTROPHILS (test code = 1008) 39.6 % LYMPHOCYTES (test code = 1010) 46.5 % MONOCYTES (test code = 1011) 12.3 % EOSINOPHILS (test code = 1012) 0.8 % BASOPHILS (test code = 1013) 0.8 % PLATELET COUNT (test code = 1015) 167 K/UL COMMENTS (test code = 1016) (NOTE) CBC W/AUTO [id number] 00:00:00 Test Item Value Reference Range Interpretation Comments WBC (test code = 1001) 2.4 K/UL RBC (test code = 1002) 3.81 M/UL HEMOGLOBIN (test code = 1003) 12.1 G/DL HEMATOCRIT (test code = 1004) 36.7 % MCV (test code = 1005) 96.3 fL MCH (test code = 1006) 31.8 PG MCHC (test code = 1007) 33.0 G/DL RDW (test code = 1038) 17.9 % NEUTROPHILS (test code = 1008) 39.6 % LYMPHOCYTES (test code = 1010) 46.5 % MONOCYTES (test code = 1011) 12.3 % EOSINOPHILS (test code = 1012) 0.8 % BASOPHILS (test code = 1013) 0.8 % PLATELET COUNT (test code = 1015) 167 K/UL COMMENTS (test code = 1016) (NOTE) CBC W/AUTO [id number] 00:00:00 Test Item Value Reference Range Interpretation Comments WBC (test code = 1001) 2.4 K/UL RBC (test code = 1002) 3.81 M/UL HEMOGLOBIN (test code = 1003) 12.1 G/DL HEMATOCRIT (test code = 1004) 36.7 % MCV (test code = 1005) 96.3 fL MCH (test code = 1006) 31.8 PG MCHC (test code = 1007) 33.0 G/DL RDW (test code = 1038) 17.9 % NEUTROPHILS (test code = 1008) 39.6 % LYMPHOCYTES (test code = 1010) 46.5 % MONOCYTES (test code = 1011) 12.3 % EOSINOPHILS (test code = 1012) 0.8 % BASOPHILS (test code = 1013) 0.8 % PLATELET COUNT (test code = 1015) 167 K/UL COMMENTS (test code = 1016) (NOTE) CBC W/AUTO [id number] 00:00:00 Test Item Value Reference Range Interpretation Comments WBC (test code = 1001) 2.4 K/UL RBC (test code = 1002) 3.81 M/UL HEMOGLOBIN (test code = 1003) 12.1 G/DL HEMATOCRIT (test code = 1004) 36.7 % MCV (test code = 1005) 96.3 fL MCH (test code = 1006) 31.8 PG MCHC (test code = 1007) 33.0 G/DL RDW (test code = 1038) 17.9 % NEUTROPHILS (test code = 1008) 39.6 % LYMPHOCYTES (test code = 1010) 46.5 % MONOCYTES (test code = 1011) 12.3 % EOSINOPHILS (test code = 1012) 0.8 % BASOPHILS (test code = 1013) 0.8 % PLATELET COUNT (test code = 1015) 167 K/UL COMMENTS (test code = 1016) (NOTE) CBC W/AUTO [id number] 00:00:00 Test Item Value Reference Range Interpretation Comments WBC (test code = 1001) 2.4 K/UL RBC (test code = 1002) 3.81 M/UL HEMOGLOBIN (test code = 1003) 12.1 G/DL HEMATOCRIT (test code = 1004) 36.7 % MCV (test code = 1005) 96.3 fL MCH (test code = 1006) 31.8 PG MCHC (test code = 1007) 33.0 G/DL RDW (test code = 1038) 17.9 % NEUTROPHILS (test code = 1008) 39.6 % LYMPHOCYTES (test code = 1010) 46.5 % MONOCYTES (test code = 1011) 12.3 % EOSINOPHILS (test code = 1012) 0.8 % BASOPHILS (test code = 1013) 0.8 % PLATELET COUNT (test code = 1015) 167 K/UL COMMENTS (test code = 1016) (NOTE) VAGINAL PATHOGENS DNA [id number] 00:00:00 Test Item Value Reference Range Interpretation Comments DIANNA SPECIES (test code = ) NEGATIVE G. VAGINALIS (test code = ) POSITIVE T. VAGINALIS (test code = ) NEGATIVE VAGINAL PATHOGENS DNA [id number] 00:00:00 Test Item Value Reference Range Interpretation Comments DIANNA SPECIES (test code = ) NEGATIVE G. VAGINALIS (test code = ) POSITIVE T. VAGINALIS (test code = ) NEGATIVE COMPREHENSIVE METABOLIC [id number] 00:00:00 Test Item Value Reference Range Interpretation Comments GLUCOSE (test code = 2217) 92 MG/DL BUN (test code = 2208) 20 MG/DL CREATININE (test code = 2214) 1.31 MG/DL eGFR AMER. (test code 53 ML/MIN/1.73 = 24674) eGFR NON- AMER. (test 45 ML/MIN/1.73 code = 22733) CALC BUN/CREAT (test code = 15 RATIO 2235) SODIUM (test code = 2231) 140 MEQ/L POTASSIUM (test code = 2228) 4.0 MEQ/L CHLORIDE (test code = 2215) 107 MEQ/L CARBON DIOXIDE (test code = 22 MEQ/L 2205) CALCIUM (test code = 2209) 10.1 MG/DL PROTEIN, TOTAL (test code = 10.4 G/DL 2228) ALBUMIN (test code = 2201) 4.0 G/DL CALC GLOBULIN (test code = 6.4 G/DL 0) CALC A/G RATIO (test code = 0.6 RATIO 2234) BILIRUBIN, TOTAL (test code = 0.4 MG/DL 2206) ALKALINE PHOSPHATASE (test 88 U/L code = 2204) AST (test code = 2218) 32 U/L ALT (test code = 2219) 16 U/L COMPREHENSIVE METABOLIC [id number] 00:00:00 Test Item Value Reference Range Interpretation Comments GLUCOSE (test code = 2217) 92 MG/DL BUN (test code = 2208) 20 MG/DL CREATININE (test code = 2214) 1.31 MG/DL eGFR AMER. (test code 53 ML/MIN/1.73 = 88316) eGFR NON- AMER. (test 45 ML/MIN/1.73 code = 71839) CALC BUN/CREAT (test code = 15 RATIO 2235) SODIUM (test code = 2231) 140 MEQ/L POTASSIUM (test code = 2228) 4.0 MEQ/L CHLORIDE (test code = 2215) 107 MEQ/L CARBON DIOXIDE (test code = 22 MEQ/L 2206) CALCIUM (test code = 2209) 10.1 MG/DL PROTEIN, TOTAL (test code = 10.4 G/DL 2229) ALBUMIN (test code = 2201) 4.0 G/DL CALC GLOBULIN (test code = 6.4 G/DL 2240) CALC A/G RATIO (test code = 0.6 RATIO 2234) BILIRUBIN, TOTAL (test code = 0.4 MG/DL 2207) ALKALINE PHOSPHATASE (test 88 U/L code = 2204) AST (test code = 2218) 32 U/L ALT (test code = 2219) 16 U/L CBC W/AUTO [id number] 00:00:00 Test Item Value Reference Range Interpretation Comments WBC (test code = 1001) 3.9 K/UL RBC (test code = 1002) 4.13 M/UL HEMOGLOBIN (test code = 1003) 12.4 G/DL HEMATOCRIT (test code = 1004) 39.3 % MCV (test code = 1005) 95.2 fL MCH (test code = 1006) 30.0 PG MCHC (test code = 1007) 31.6 G/DL RDW (test code = 1038) 14.5 % NEUTROPHILS (test code = 1008) 41.6 % LYMPHOCYTES (test code = 1010) 46.3 % MONOCYTES (test code = 1011) 11.0 % EOSINOPHILS (test code = 1012) 0.3 % BASOPHILS (test code = 1013) 0.8 % PLATELET COUNT (test code = 1015) 80 K/UL COMMENTS (test code = 1016) (NOTE) CBC W/AUTO [id number] 00:00:00 Test Item Value Reference Range Interpretation Comments WBC (test code = 1001) 3.9 K/UL RBC (test code = 1002) 4.13 M/UL HEMOGLOBIN (test code = 1003) 12.4 G/DL HEMATOCRIT (test code = 1004) 39.3 % MCV (test code = 1005) 95.2 fL MCH (test code = 1006) 30.0 PG MCHC (test code = 1007) 31.6 G/DL RDW (test code = 1038) 14.5 % NEUTROPHILS (test code = 1008) 41.6 % LYMPHOCYTES (test code = 1010) 46.3 % MONOCYTES (test code = 1011) 11.0 % EOSINOPHILS (test code = 1012) 0.3 % BASOPHILS (test code = 1013) 0.8 % PLATELET COUNT (test code = 1015) 80 K/UL COMMENTS (test code = 1016) (NOTE) CBC W/AUTO [id number] 00:00:00 Test Item Value Reference Range Interpretation Comments WBC (test code = 1001) 3.9 K/UL RBC (test code = 1002) 4.13 M/UL HEMOGLOBIN (test code = 1003) 12.4 G/DL HEMATOCRIT (test code = 1004) 39.3 % MCV (test code = 1005) 95.2 fL MCH (test code = 1006) 30.0 PG MCHC (test code = 1007) 31.6 G/DL RDW (test code = 1038) 14.5 % NEUTROPHILS (test code = 1008) 41.6 % LYMPHOCYTES (test code = 1010) 46.3 % MONOCYTES (test code = 1011) 11.0 % EOSINOPHILS (test code = 1012) 0.3 % BASOPHILS (test code = 1013) 0.8 % PLATELET COUNT (test code = 1015) 80 K/UL COMMENTS (test code = 1016) (NOTE) VAGINAL PATHOGENS DNA [id number] 00:00:00 Test Item Value Reference Range Interpretation Comments DIANNA SPECIES (test code = ) NEGATIVE G. VAGINALIS (test code = ) POSITIVE T. VAGINALIS (test code = ) NEGATIVE COMPREHENSIVE METABOLIC [id number] 00:00:00 Test Item Value Reference Range Interpretation Comments GLUCOSE (test code = 2217) 92 MG/DL BUN (test code = 2208) 20 MG/DL CREATININE (test code = 2214) 1.31 MG/DL eGFR AMER. (test code 53 ML/MIN/1.73 = 66378) eGFR NON- AMER. (test 45 ML/MIN/1.73 code = 61141) CALC BUN/CREAT (test code = 15 RATIO 2235) SODIUM (test code = 2231) 140 MEQ/L POTASSIUM (test code = 2228) 4.0 MEQ/L CHLORIDE (test code = 2215) 107 MEQ/L CARBON DIOXIDE (test code = 22 MEQ/L 220) CALCIUM (test code = 2209) 10.1 MG/DL PROTEIN, TOTAL (test code = 10.4 G/DL 2228) ALBUMIN (test code = 2201) 4.0 G/DL CALC GLOBULIN (test code = 6.4 G/DL 2240) CALC A/G RATIO (test code = 0.6 RATIO 4) BILIRUBIN, TOTAL (test code = 0.4 MG/DL 7) ALKALINE PHOSPHATASE (test 88 U/L code = 2204) AST (test code = 2218) 32 U/L ALT (test code = 2219) 16 U/L CBC W/AUTO [id number] 00:00:00 Test Item Value Reference Range Interpretation Comments WBC (test code = 1001) 3.9 K/UL RBC (test code = 1002) 4.13 M/UL HEMOGLOBIN (test code = 1003) 12.4 G/DL HEMATOCRIT (test code = 1004) 39.3 % MCV (test code = 1005) 95.2 fL MCH (test code = 1006) 30.0 PG MCHC (test code = 1007) 31.6 G/DL RDW (test code = 1038) 14.5 % NEUTROPHILS (test code = 1008) 41.6 % LYMPHOCYTES (test code = 1010) 46.3 % MONOCYTES (test code = 1011) 11.0 % EOSINOPHILS (test code = 1012) 0.3 % BASOPHILS (test code = 1013) 0.8 % PLATELET COUNT (test code = 1015) 80 K/UL COMMENTS (test code = 1016) (NOTE) CBC W/AUTO [id number] 00:00:00 Test Item Value Reference Range Interpretation Comments WBC (test code = 1001) 3.9 K/UL RBC (test code = 1002) 4.13 M/UL HEMOGLOBIN (test code = 1003) 12.4 G/DL HEMATOCRIT (test code = 1004) 39.3 % MCV (test code = 1005) 95.2 fL MCH (test code = 1006) 30.0 PG MCHC (test code = 1007) 31.6 G/DL RDW (test code = 1038) 14.5 % NEUTROPHILS (test code = 1008) 41.6 % LYMPHOCYTES (test code = 1010) 46.3 % MONOCYTES (test code = 1011) 11.0 % EOSINOPHILS (test code = 1012) 0.3 % BASOPHILS (test code = 1013) 0.8 % PLATELET COUNT (test code = 1015) 80 K/UL COMMENTS (test code = 1016) (NOTE) VAGINAL PATHOGENS DNA [id number] 00:00:00 Test Item Value Reference Range Interpretation Comments DIANNA SPECIES (test code = ) NEGATIVE G. VAGINALIS (test code = ) POSITIVE T. VAGINALIS (test code = ) NEGATIVE VAGINAL PATHOGENS DNA [id number] 00:00:00 Test Item Value Reference Range Interpretation Comments DIANNA SPECIES (test code = ) NEGATIVE G. VAGINALIS (test code = 04913) POSITIVE T. VAGINALIS (test code = 37775) NEGATIVE COMPREHENSIVE METABOLIC [id number] 00:00:00 Test Item Value Reference Range Interpretation Comments GLUCOSE (test code = 2217) 92 MG/DL BUN (test code = 2208) 20 MG/DL CREATININE (test code = 2214) 1.31 MG/DL eGFR AMER. (test code 53 ML/MIN/1.73 = 15004) eGFR NON- AMER. (test 45 ML/MIN/1.73 code = 98486) CALC BUN/CREAT (test code = 15 RATIO 2234) SODIUM (test code = 2231) 140 MEQ/L POTASSIUM (test code = 2228) 4.0 MEQ/L CHLORIDE (test code = 2215) 107 MEQ/L CARBON DIOXIDE (test code = 22 MEQ/L 2205) CALCIUM (test code = 2209) 10.1 MG/DL PROTEIN, TOTAL (test code = 10.4 G/DL 2228) ALBUMIN (test code = 2201) 4.0 G/DL CALC GLOBULIN (test code = 6.4 G/DL 2240) CALC A/G RATIO (test code = 0.6 RATIO 2233) BILIRUBIN, TOTAL (test code = 0.4 MG/DL 2206) ALKALINE PHOSPHATASE (test 88 U/L code = 2204) AST (test code = 2218) 32 U/L ALT (test code = 2219) 16 U/L COMPREHENSIVE METABOLIC [id number] 00:00:00 Test Item Value Reference Range Interpretation Comments GLUCOSE (test code = 2217) 92 MG/DL BUN (test code = 2208) 20 MG/DL CREATININE (test code = 2214) 1.31 MG/DL eGFR AMER. (test code 53 ML/MIN/1.73 = 75448) eGFR NON- AMER. (test 45 ML/MIN/1.73 code = 34307) CALC BUN/CREAT (test code = 15 RATIO 2234) SODIUM (test code = 2231) 140 MEQ/L POTASSIUM (test code = 2228) 4.0 MEQ/L CHLORIDE (test code = 2215) 107 MEQ/L CARBON DIOXIDE (test code = 22 MEQ/L 2205) CALCIUM (test code = 2209) 10.1 MG/DL PROTEIN, TOTAL (test code = 10.4 G/DL 2228) ALBUMIN (test code = 2201) 4.0 G/DL CALC GLOBULIN (test code = 6.4 G/DL 2239) CALC A/G RATIO (test code = 0.6 RATIO 2233) BILIRUBIN, TOTAL (test code = 0.4 MG/DL 2206) ALKALINE PHOSPHATASE (test 88 U/L code = 220) AST (test code = 2218) 32 U/L ALT (test code = 2219) 16 U/L CBC W/AUTO [id number] 00:00:00 Test Item Value Reference Range Interpretation Comments WBC (test code = 1001) 3.9 K/UL RBC (test code = 1002) 4.13 M/UL HEMOGLOBIN (test code = 1003) 12.4 G/DL HEMATOCRIT (test code = 1004) 39.3 % MCV (test code = 1005) 95.2 fL MCH (test code = 1006) 30.0 PG MCHC (test code = 1007) 31.6 G/DL RDW (test code = 1038) 14.5 % NEUTROPHILS (test code = 1008) 41.6 % LYMPHOCYTES (test code = 1010) 46.3 % MONOCYTES (test code = 1011) 11.0 % EOSINOPHILS (test code = 1012) 0.3 % BASOPHILS (test code = 1013) 0.8 % PLATELET COUNT (test code = 1015) 80 K/UL COMMENTS (test code = 1016) (NOTE) CBC W/AUTO [id number] 00:00:00 Test Item Value Reference Range Interpretation Comments WBC (test code = 1001) 3.9 K/UL RBC (test code = 1002) 4.13 M/UL HEMOGLOBIN (test code = 1003) 12.4 G/DL HEMATOCRIT (test code = 1004) 39.3 % MCV (test code = 1005) 95.2 fL MCH (test code = 1006) 30.0 PG MCHC (test code = 1007) 31.6 G/DL RDW (test code = 1038) 14.5 % NEUTROPHILS (test code = 1008) 41.6 % LYMPHOCYTES (test code = 1010) 46.3 % MONOCYTES (test code = 1011) 11.0 % EOSINOPHILS (test code = 1012) 0.3 % BASOPHILS (test code = 1013) 0.8 % PLATELET COUNT (test code = 1015) 80 K/UL COMMENTS (test code = 1016) (NOTE) CBC W/AUTO [id number] 00:00:00 Test Item Value Reference Range Interpretation Comments WBC (test code = 1001) 3.9 K/UL RBC (test code = 1002) 4.13 M/UL HEMOGLOBIN (test code = 1003) 12.4 G/DL HEMATOCRIT (test code = 1004) 39.3 % MCV (test code = 1005) 95.2 fL MCH (test code = 1006) 30.0 PG MCHC (test code = 1007) 31.6 G/DL RDW (test code = 1038) 14.5 % NEUTROPHILS (test code = 1008) 41.6 % LYMPHOCYTES (test code = 1010) 46.3 % MONOCYTES (test code = 1011) 11.0 % EOSINOPHILS (test code = 1012) 0.3 % BASOPHILS (test code = 1013) 0.8 % PLATELET COUNT (test code = 1015) 80 K/UL COMMENTS (test code = 1016) (NOTE) CBC W/AUTO [id number] 00:00:00 Test Item Value Reference Range Interpretation Comments WBC (test code = 1001) 2.9 K/UL RBC (test code = 1002) 3.40 M/UL HEMOGLOBIN (test code = 1003) 10.5 G/DL HEMATOCRIT (test code = 1004) 31.3 % MCV (test code = 1005) 92.1 fL MCH (test code = 1006) 30.9 PG MCHC (test code = 1007) 33.5 G/DL RDW (test code = 1038) 14.6 % NEUTROPHILS (test code = 1008) 65.0 % LYMPHOCYTES (test code = 1010) 24.6 % MONOCYTES (test code = 1011) 8.0 % EOSINOPHILS (test code = 1012) 1.7 % BASOPHILS (test code = 1013) 0.7 % PLATELET COUNT (test code = 1015) 212 K/UL CBC W/AUTO [id number] 00:00:00 Test Item Value Reference Range Interpretation Comments WBC (test code = 1001) 2.9 K/UL RBC (test code = 1002) 3.40 M/UL HEMOGLOBIN (test code = 1003) 10.5 G/DL HEMATOCRIT (test code = 1004) 31.3 % MCV (test code = 1005) 92.1 fL MCH (test code = 1006) 30.9 PG MCHC (test code = 1007) 33.5 G/DL RDW (test code = 1038) 14.6 % NEUTROPHILS (test code = 1008) 65.0 % LYMPHOCYTES (test code = 1010) 24.6 % MONOCYTES (test code = 1011) 8.0 % EOSINOPHILS (test code = 1012) 1.7 % BASOPHILS (test code = 1013) 0.7 % PLATELET COUNT (test code = 1015) 212 K/UL CBC W/AUTO [id number] 00:00:00 Test Item Value Reference Range Interpretation Comments WBC (test code = 1001) 2.9 K/UL RBC (test code = 1002) 3.40 M/UL HEMOGLOBIN (test code = 1003) 10.5 G/DL HEMATOCRIT (test code = 1004) 31.3 % MCV (test code = 1005) 92.1 fL MCH (test code = 1006) 30.9 PG MCHC (test code = 1007) 33.5 G/DL RDW (test code = 1038) 14.6 % NEUTROPHILS (test code = 1008) 65.0 % LYMPHOCYTES (test code = 1010) 24.6 % MONOCYTES (test code = 1011) 8.0 % EOSINOPHILS (test code = 1012) 1.7 % BASOPHILS (test code = 1013) 0.7 % PLATELET COUNT (test code = 1015) 212 K/UL LIPID [id number] 00:00:00 Test Item Value Reference Range Interpretation Comments CHOLESTEROL (test code = 2210) 141 MG/DL TRIGLYCERIDES (test code = 2232) 71 MG/DL HDL CHOLESTEROL (test code = 2220) 69 MG/DL CALC LDL CHOL (test code = 2237) 58 MG/DL RISK RATIO LDL/HDL (test code = 0.84 RATIO 2238) LIPID [id number] 00:00:00 Test Item Value Reference Range Interpretation Comments CHOLESTEROL (test code = 2210) 141 MG/DL TRIGLYCERIDES (test code = 2232) 71 MG/DL HDL CHOLESTEROL (test code = 2220) 69 MG/DL CALC LDL CHOL (test code = 2237) 58 MG/DL RISK RATIO LDL/HDL (test code = 0.84 RATIO 2238) COMPREHENSIVE METABOLIC [id number] 00:00:00 Test Item Value Reference Range Interpretation Comments GLUCOSE (test code = 2217) 95 MG/DL BUN (test code = 2208) 21 MG/DL CREATININE (test code = 2214) 0.87 MG/DL eGFR AMER. (test code 87 ML/MIN/1.73 = 41761) eGFR NON- AMER. (test 75 ML/MIN/1.73 code = 76463) CALC BUN/CREAT (test code = 24 RATIO 2235) SODIUM (test code = 2231) 139 MEQ/L POTASSIUM (test code = 2228) 4.4 MEQ/L CHLORIDE (test code = 2215) 109 MEQ/L CARBON DIOXIDE (test code = 21 MEQ/L 2206) CALCIUM (test code = 2209) 9.4 MG/DL PROTEIN, TOTAL (test code = 9.8 G/DL 222) ALBUMIN (test code = 2201) 3.6 G/DL CALC GLOBULIN (test code = 6.2 G/DL 2240) CALC A/G RATIO (test code = 0.6 RATIO 2234) BILIRUBIN, TOTAL (test code = 0.5 MG/DL 220) ALKALINE PHOSPHATASE (test 83 U/L code = 2204) AST (test code = 2218) 27 U/L ALT (test code = 2219) 8 U/L COMPREHENSIVE METABOLIC [id number] 00:00:00 Test Item Value Reference Range Interpretation Comments GLUCOSE (test code = 2217) 95 MG/DL BUN (test code = 2208) 21 MG/DL CREATININE (test code = 2214) 0.87 MG/DL eGFR AMER. (test code 87 ML/MIN/1.73 = 06014) eGFR NON- AMER. (test 75 ML/MIN/1.73 code = 58018) CALC BUN/CREAT (test code = 24 RATIO 2234) SODIUM (test code = 2231) 139 MEQ/L POTASSIUM (test code = 2228) 4.4 MEQ/L CHLORIDE (test code = 2215) 109 MEQ/L CARBON DIOXIDE (test code = 21 MEQ/L 2205) CALCIUM (test code = 220) 9.4 MG/DL PROTEIN, TOTAL (test code = 9.8 G/DL 2228) ALBUMIN (test code = 220) 3.6 G/DL CALC GLOBULIN (test code = 6.2 G/DL 2239) CALC A/G RATIO (test code = 0.6 RATIO 2233) BILIRUBIN, TOTAL (test code = 0.5 MG/DL 2206) ALKALINE PHOSPHATASE (test 83 U/L code = 2203) AST (test code = 221) 27 U/L ALT (test code = 221) 8 U/L URIC [id number] 00:00:00 Test Item Value Reference Range Interpretation Comments URIC ACID (test code = 2233) 8.5 MG/DL URIC [id number] 00:00:00 Test Item Value Reference Range Interpretation Comments URIC ACID (test code = 2233) 8.5 MG/DL VITAMIN [id number] 00:00:00 Test Item Value Reference Range Interpretation Comments VITAMIN B-12 (test code = 2840) 335 PG/ML VITAMIN [id number] 00:00:00 Test Item Value Reference Range Interpretation Comments VITAMIN B-12 (test code = 2840) 335 PG/ML VITAMIN [id number] 00:00:00 Test Item Value Reference Range Interpretation Comments VITAMIN B-12 (test code = 2840) 335 PG/ML CBC W/AUTO [id number] 00:00:00 Test Item Value Reference Range Interpretation Comments WBC (test code = 1001) 2.9 K/UL RBC (test code = 1002) 3.40 M/UL HEMOGLOBIN (test code = 1003) 10.5 G/DL HEMATOCRIT (test code = 1004) 31.3 % MCV (test code = 1005) 92.1 fL MCH (test code = 1006) 30.9 PG MCHC (test code = 1007) 33.5 G/DL RDW (test code = 1038) 14.6 % NEUTROPHILS (test code = 1008) 65.0 % LYMPHOCYTES (test code = 1010) 24.6 % MONOCYTES (test code = 1011) 8.0 % EOSINOPHILS (test code = 1012) 1.7 % BASOPHILS (test code = 1013) 0.7 % PLATELET COUNT (test code = 1015) 212 K/UL CBC W/AUTO [id number] 00:00:00 Test Item Value Reference Range Interpretation Comments WBC (test code = 1001) 2.9 K/UL RBC (test code = 1002) 3.40 M/UL HEMOGLOBIN (test code = 1003) 10.5 G/DL HEMATOCRIT (test code = 1004) 31.3 % MCV (test code = 1005) 92.1 fL MCH (test code = 1006) 30.9 PG MCHC (test code = 1007) 33.5 G/DL RDW (test code = 1038) 14.6 % NEUTROPHILS (test code = 1008) 65.0 % LYMPHOCYTES (test code = 1010) 24.6 % MONOCYTES (test code = 1011) 8.0 % EOSINOPHILS (test code = 1012) 1.7 % BASOPHILS (test code = 1013) 0.7 % PLATELET COUNT (test code = 1015) 212 K/UL LIPID [id number] 00:00:00 Test Item Value Reference Range Interpretation Comments CHOLESTEROL (test code = 2210) 141 MG/DL TRIGLYCERIDES (test code = 2232) 71 MG/DL HDL CHOLESTEROL (test code = 2220) 69 MG/DL CALC LDL CHOL (test code = 2237) 58 MG/DL RISK RATIO LDL/HDL (test code = 0.84 RATIO 2238) COMPREHENSIVE METABOLIC [id number] 00:00:00 Test Item Value Reference Range Interpretation Comments GLUCOSE (test code = 2217) 95 MG/DL BUN (test code = 2208) 21 MG/DL CREATININE (test code = 2214) 0.87 MG/DL eGFR AMER. (test code 87 ML/MIN/1.73 = 33188) eGFR NON- AMER. (test 75 ML/MIN/1.73 code = 93447) CALC BUN/CREAT (test code = 24 RATIO 2235) SODIUM (test code = 2231) 139 MEQ/L POTASSIUM (test code = 2228) 4.4 MEQ/L CHLORIDE (test code = 2215) 109 MEQ/L CARBON DIOXIDE (test code = 21 MEQ/L 2205) CALCIUM (test code = 2209) 9.4 MG/DL PROTEIN, TOTAL (test code = 9.8 G/DL 2228) ALBUMIN (test code = 2201) 3.6 G/DL CALC GLOBULIN (test code = 6.2 G/DL 2239) CALC A/G RATIO (test code = 0.6 RATIO 2233) BILIRUBIN, TOTAL (test code = 0.5 MG/DL 2206) ALKALINE PHOSPHATASE (test 83 U/L code = 2204) AST (test code = 2218) 27 U/L ALT (test code = 2219) 8 U/L URIC [id number] 00:00:00 Test Item Value Reference Range Interpretation Comments URIC ACID (test code = 2233) 8.5 MG/DL VITAMIN [id number] 00:00:00 Test Item Value Reference Range Interpretation Comments VITAMIN B-12 (test code = 2840) 335 PG/ML VITAMIN [id number] 00:00:00 Test Item Value Reference Range Interpretation Comments VITAMIN B-12 (test code = 2840) 335 PG/ML CBC W/AUTO [id number] 00:00:00 Test Item Value Reference Range Interpretation Comments WBC (test code = 1001) 2.9 K/UL RBC (test code = 1002) 3.40 M/UL HEMOGLOBIN (test code = 1003) 10.5 G/DL HEMATOCRIT (test code = 1004) 31.3 % MCV (test code = 1005) 92.1 fL MCH (test code = 1006) 30.9 PG MCHC (test code = 1007) 33.5 G/DL RDW (test code = 1038) 14.6 % NEUTROPHILS (test code = 1008) 65.0 % LYMPHOCYTES (test code = 1010) 24.6 % MONOCYTES (test code = 1011) 8.0 % EOSINOPHILS (test code = 1012) 1.7 % BASOPHILS (test code = 1013) 0.7 % PLATELET COUNT (test code = 1015) 212 K/UL CBC W/AUTO [id number] 00:00:00 Test Item Value Reference Range Interpretation Comments WBC (test code = 1001) 2.9 K/UL RBC (test code = 1002) 3.40 M/UL HEMOGLOBIN (test code = 1003) 10.5 G/DL HEMATOCRIT (test code = 1004) 31.3 % MCV (test code = 1005) 92.1 fL MCH (test code = 1006) 30.9 PG MCHC (test code = 1007) 33.5 G/DL RDW (test code = 1038) 14.6 % NEUTROPHILS (test code = 1008) 65.0 % LYMPHOCYTES (test code = 1010) 24.6 % MONOCYTES (test code = 1011) 8.0 % EOSINOPHILS (test code = 1012) 1.7 % BASOPHILS (test code = 1013) 0.7 % PLATELET COUNT (test code = 1015) 212 K/UL CBC W/AUTO [id number] 00:00:00 Test Item Value Reference Range Interpretation Comments WBC (test code = 1001) 2.9 K/UL RBC (test code = 1002) 3.40 M/UL HEMOGLOBIN (test code = 1003) 10.5 G/DL HEMATOCRIT (test code = 1004) 31.3 % MCV (test code = 1005) 92.1 fL MCH (test code = 1006) 30.9 PG MCHC (test code = 1007) 33.5 G/DL RDW (test code = 1038) 14.6 % NEUTROPHILS (test code = 1008) 65.0 % LYMPHOCYTES (test code = 1010) 24.6 % MONOCYTES (test code = 1011) 8.0 % EOSINOPHILS (test code = 1012) 1.7 % BASOPHILS (test code = 1013) 0.7 % PLATELET COUNT (test code = 1015) 212 K/UL LIPID [id number] 00:00:00 Test Item Value Reference Range Interpretation Comments CHOLESTEROL (test code = 2210) 141 MG/DL TRIGLYCERIDES (test code = 2232) 71 MG/DL HDL CHOLESTEROL (test code = 2220) 69 MG/DL CALC LDL CHOL (test code = 2237) 58 MG/DL RISK RATIO LDL/HDL (test code = 0.84 RATIO 2238) LIPID [id number] 00:00:00 Test Item Value Reference Range Interpretation Comments CHOLESTEROL (test code = 2210) 141 MG/DL TRIGLYCERIDES (test code = 2232) 71 MG/DL HDL CHOLESTEROL (test code = 2220) 69 MG/DL CALC LDL CHOL (test code = 2237) 58 MG/DL RISK RATIO LDL/HDL (test code = 0.84 RATIO 2238) COMPREHENSIVE METABOLIC [id number] 00:00:00 Test Item Value Reference Range Interpretation Comments GLUCOSE (test code = 2217) 95 MG/DL BUN (test code = 2208) 21 MG/DL CREATININE (test code = 2214) 0.87 MG/DL eGFR AMER. (test code 87 ML/MIN/1.73 = 12717) eGFR NON- AMER. (test 75 ML/MIN/1.73 code = 60207) CALC BUN/CREAT (test code = 24 RATIO 2235) SODIUM (test code = 2231) 139 MEQ/L POTASSIUM (test code = 2228) 4.4 MEQ/L CHLORIDE (test code = 2215) 109 MEQ/L CARBON DIOXIDE (test code = 21 MEQ/L 2206) CALCIUM (test code = 2209) 9.4 MG/DL PROTEIN, TOTAL (test code = 9.8 G/DL 2228) ALBUMIN (test code = 2201) 3.6 G/DL CALC GLOBULIN (test code = 6.2 G/DL 0) CALC A/G RATIO (test code = 0.6 RATIO 2233) BILIRUBIN, TOTAL (test code = 0.5 MG/DL 2206) ALKALINE PHOSPHATASE (test 83 U/L code = 2204) AST (test code = 2218) 27 U/L ALT (test code = 2219) 8 U/L COMPREHENSIVE METABOLIC [id number] 00:00:00 Test Item Value Reference Range Interpretation Comments GLUCOSE (test code = 2217) 95 MG/DL BUN (test code = 2208) 21 MG/DL CREATININE (test code = 2214) 0.87 MG/DL eGFR AMER. (test code 87 ML/MIN/1.73 = 70319) eGFR NON- AMER. (test 75 ML/MIN/1.73 code = 95941) CALC BUN/CREAT (test code = 24 RATIO 2235) SODIUM (test code = 2231) 139 MEQ/L POTASSIUM (test code = 2228) 4.4 MEQ/L CHLORIDE (test code = 2215) 109 MEQ/L CARBON DIOXIDE (test code = 21 MEQ/L 2206) CALCIUM (test code = 2209) 9.4 MG/DL PROTEIN, TOTAL (test code = 9.8 G/DL 2228) ALBUMIN (test code = 2201) 3.6 G/DL CALC GLOBULIN (test code = 6.2 G/DL 2240) CALC A/G RATIO (test code = 0.6 RATIO 2234) BILIRUBIN, TOTAL (test code = 0.5 MG/DL 2206) ALKALINE PHOSPHATASE (test 83 U/L code = 2204) AST (test code = 2218) 27 U/L ALT (test code = 2219) 8 U/L URIC [id number] 00:00:00 Test Item Value Reference Range Interpretation Comments URIC ACID (test code = 2233) 8.5 MG/DL URIC [id number] 00:00:00 Test Item Value Reference Range Interpretation Comments URIC ACID (test code = 2233) 8.5 MG/DL VITAMIN [id number] 00:00:00 Test Item Value Reference Range Interpretation Comments VITAMIN B-12 (test code = 2840) 335 PG/ML VITAMIN [id number] 00:00:00 Test Item Value Reference Range Interpretation Comments VITAMIN B-12 (test code = 2840) 335 PG/ML VITAMIN [id number] 00:00:00 Test Item Value Reference Range Interpretation Comments VITAMIN B-12 (test code = 2840) 335 PG/ML CD4/CD8 LYMPHOCYTE [id number] 00:00:00 Test Item Value Reference Range Interpretation Comments ABSOLUTE LYMPHOCYTES (test code = 807 PERU 47389) PERCENT CD4 (test code = 96999) 13.1 % ABSOLUTE CD4 (test code = 00348) 105 PERUL PERCENT CD8 (test code = 12984) 61.6 % ABSOLUTE CD8 (test code = 99183) 497 PERUL CD4/CD8 RATIO (test code = 84920) 0.21 CD4/CD8 LYMPHOCYTE [id number] 00:00:00 Test Item Value Reference Range Interpretation Comments ABSOLUTE LYMPHOCYTES (test code = 807 PERUL 12437) PERCENT CD4 (test code = 99897) 13.1 % ABSOLUTE CD4 (test code = 49308) 105 PERUL PERCENT CD8 (test code = 54731) 61.6 % ABSOLUTE CD8 (test code = 08050) 497 PERUL CD4/CD8 RATIO (test code = 58046) 0.21 CD4/CD8 LYMPHOCYTE [id number] 00:00:00 Test Item Value Reference Range Interpretation Comments ABSOLUTE LYMPHOCYTES (test code = 807 PERUL 86138) PERCENT CD4 (test code = 73105) 13.1 % ABSOLUTE CD4 (test code = 56057) 105 PERUL PERCENT CD8 (test code = 44982) 61.6 % ABSOLUTE CD8 (test code = 80293) 497 PERUL CD4/CD8 RATIO (test code = 78451) 0.21 CD4/CD8 LYMPHOCYTE [id number] 00:00:00 Test Item Value Reference Range Interpretation Comments ABSOLUTE LYMPHOCYTES (test code = 807 PERUL 98976) PERCENT CD4 (test code = 38167) 13.1 % ABSOLUTE CD4 (test code = 11833) 105 PERUL PERCENT CD8 (test code = 84774) 61.6 % ABSOLUTE CD8 (test code = 87998) 497 PERUL CD4/CD8 RATIO (test code = 08004) 0.21 CD4/CD8 LYMPHOCYTE [id number] 00:00:00 Test Item Value Reference Range Interpretation Comments ABSOLUTE LYMPHOCYTES (test code = 807 PERUL 08332) PERCENT CD4 (test code = 22896) 13.1 % ABSOLUTE CD4 (test code = 44667) 105 PERUL PERCENT CD8 (test code = 42027) 61.6 % ABSOLUTE CD8 (test code = 50107) 497 PERUL CD4/CD8 RATIO (test code = 67247) 0.21 VITAMIN [id number] 00:00:00 Test Item Value Reference Range Interpretation Comments VITAMIN B-12 (test code = 2840) 358 PG/ML VITAMIN [id number] 00:00:00 Test Item Value Reference Range Interpretation Comments VITAMIN B-12 (test code = 2840) 358 PG/ML VITAMIN [id number] 00:00:00 Test Item Value Reference Range Interpretation Comments VITAMIN B-12 (test code = 2840) 358 PG/ML VITAMIN [id number] 00:00:00 Test Item Value Reference Range Interpretation Comments VITAMIN B-12 (test code = 2840) 358 PG/ML VITAMIN [id number] 00:00:00 Test Item Value Reference Range Interpretation Comments VITAMIN B-12 (test code = 2840) 358 PG/ML VITAMIN [id number] 00:00:00 Test Item Value Reference Range Interpretation Comments VITAMIN B-12 (test code = 2840) 358 PG/ML VITAMIN [id number] 00:00:00 Test Item Value Reference Range Interpretation Comments VITAMIN B-12 (test code = 2840) 358 PG/ML VITAMIN [id number] 00:00:00 Test Item Value Reference Range Interpretation Comments VITAMIN B-12 (test code = 2840) 358 PG/ML CBC W/AUTO DIFF WITH PLATELETS [ADDED]2018-09-09 00:00:00 Test Item Value Reference Range Interpretation Comments WBC (test code = 1001) 3.3 K/UL RBC (test code = 1002) 3.44 M/UL HEMOGLOBIN (test code = 1003) 9.2 G/DL HEMATOCRIT (test code = 1004) 28.9 % MCV (test code = 1005) 84.0 fL MCH (test code = 1006) 26.7 PG MCHC (test code = 1007) 31.8 G/DL RDW (test code = 1038) 15.8 % NEUTROPHILS (test code = 1008) 54.0 % LYMPHOCYTES (test code = 1010) 35.9 % MONOCYTES (test code = 1011) 8.9 % EOSINOPHILS (test code = 1012) 0.6 % BASOPHILS (test code = 1013) 0.6 % PLATELET COUNT (test code = 1015) 231 K/UL COMMENTS (test code = 1016) (NOTE) CBC W/AUTO DIFF WITH PLATELETS [ADDED]2018-09-09 00:00:00 Test Item Value Reference Range Interpretation Comments WBC (test code = 1001) 3.3 K/UL RBC (test code = 1002) 3.44 M/UL HEMOGLOBIN (test code = 1003) 9.2 G/DL HEMATOCRIT (test code = 1004) 28.9 % MCV (test code = 1005) 84.0 fL MCH (test code = 1006) 26.7 PG MCHC (test code = 1007) 31.8 G/DL RDW (test code = 1038) 15.8 % NEUTROPHILS (test code = 1008) 54.0 % LYMPHOCYTES (test code = 1010) 35.9 % MONOCYTES (test code = 1011) 8.9 % EOSINOPHILS (test code = 1012) 0.6 % BASOPHILS (test code = 1013) 0.6 % PLATELET COUNT (test code = 1015) 231 K/UL COMMENTS (test code = 1016) (NOTE) CBC W/AUTO DIFF WITH PLATELETS [ADDED]2018-09-09 00:00:00 Test Item Value Reference Range Interpretation Comments WBC (test code = 1001) 3.3 K/UL RBC (test code = 1002) 3.44 M/UL HEMOGLOBIN (test code = 1003) 9.2 G/DL HEMATOCRIT (test code = 1004) 28.9 % MCV (test code = 1005) 84.0 fL MCH (test code = 1006) 26.7 PG MCHC (test code = 1007) 31.8 G/DL RDW (test code = 1038) 15.8 % NEUTROPHILS (test code = 1008) 54.0 % LYMPHOCYTES (test code = 1010) 35.9 % MONOCYTES (test code = 1011) 8.9 % EOSINOPHILS (test code = 1012) 0.6 % BASOPHILS (test code = 1013) 0.6 % PLATELET COUNT (test code = 1015) 231 K/UL COMMENTS (test code = 1016) (NOTE) VITAMIN B 12 AND FOLIC ACID [ADDED]2018-09-09 00:00:00 Test Item Value Reference Range Interpretation Comments VITAMIN B-12 (test code = 2840) 166 PG/ML FOLIC ACID (test code = 2695) 9.9 UG/L VITAMIN B 12 AND FOLIC ACID [ADDED]2018-09-09 00:00:00 Test Item Value Reference Range Interpretation Comments VITAMIN B-12 (test code = 2840) 166 PG/ML FOLIC ACID (test code = 2695) 9.9 UG/L IRON BINDING CAPACITY AND IRON AND % SATURATION [ADDED]2018-09-09 00:00:00 Test Item Value Reference Range Interpretation Comments IRON, SERUM (test code = 2222) 32 UG/DL UNSATURATED IBC (test code = 66873) 326 UG/DL CALC TOTAL IBC (test code = 7) 358 UG/DL CALC % IRON SAT (test code = 2078) 9 % IRON BINDING CAPACITY AND IRON AND % SATURATION [ADDED]2018-09-09 00:00:00 Test Item Value Reference Range Interpretation Comments IRON, SERUM (test code = 2222) 32 UG/DL UNSATURATED IBC (test code = 12878) 326 UG/DL CALC TOTAL IBC (test code = 2077) 358 UG/DL CALC % IRON SAT (test code = 2079) 9 % FERRITIN [ADDED]2018-09-09 00:00:00 Test Item Value Reference Range Interpretation Comments FERRITIN (test code = 5) 19 NG/ML FERRITIN [ADDED]2018-09-09 00:00:00 Test Item Value Reference Range Interpretation Comments FERRITIN (test code = 5) 19 NG/ML TRANSFERRIN [ADDED]2018-09-09 00:00:00 Test Item Value Reference Range Interpretation Comments TRANSFERRIN (test code = 4936) 298 MG/DL TRANSFERRIN [ADDED]2018-09-09 00:00:00 Test Item Value Reference Range Interpretation Comments TRANSFERRIN (test code = 4936) 298 MG/DL CBC W/AUTO DIFF WITH PLATELETS [ADDED]2018-09-09 00:00:00 Test Item Value Reference Range Interpretation Comments WBC (test code = 1001) 3.3 K/UL RBC (test code = 1002) 3.44 M/UL HEMOGLOBIN (test code = 1003) 9.2 G/DL HEMATOCRIT (test code = 1004) 28.9 % MCV (test code = 1005) 84.0 fL MCH (test code = 1006) 26.7 PG MCHC (test code = 1007) 31.8 G/DL RDW (test code = 1038) 15.8 % NEUTROPHILS (test code = 1008) 54.0 % LYMPHOCYTES (test code = 1010) 35.9 % MONOCYTES (test code = 1011) 8.9 % EOSINOPHILS (test code = 1012) 0.6 % BASOPHILS (test code = 1013) 0.6 % PLATELET COUNT (test code = 1015) 231 K/UL COMMENTS (test code = 1016) (NOTE) CBC W/AUTO DIFF WITH PLATELETS [ADDED]2018-09-09 00:00:00 Test Item Value Reference Range Interpretation Comments WBC (test code = 1001) 3.3 K/UL RBC (test code = 1002) 3.44 M/UL HEMOGLOBIN (test code = 1003) 9.2 G/DL HEMATOCRIT (test code = 1004) 28.9 % MCV (test code = 1005) 84.0 fL MCH (test code = 1006) 26.7 PG MCHC (test code = 1007) 31.8 G/DL RDW (test code = 1038) 15.8 % NEUTROPHILS (test code = 1008) 54.0 % LYMPHOCYTES (test code = 1010) 35.9 % MONOCYTES (test code = 1011) 8.9 % EOSINOPHILS (test code = 1012) 0.6 % BASOPHILS (test code = 1013) 0.6 % PLATELET COUNT (test code = 1015) 231 K/UL COMMENTS (test code = 1016) (NOTE) VITAMIN B 12 AND FOLIC ACID [ADDED]2018-09-09 00:00:00 Test Item Value Reference Range Interpretation Comments VITAMIN B-12 (test code = 2840) 166 PG/ML FOLIC ACID (test code = 2695) 9.9 UG/L IRON BINDING CAPACITY AND IRON AND % SATURATION [ADDED]2018-09-09 00:00:00 Test Item Value Reference Range Interpretation Comments IRON, SERUM (test code = 2222) 32 UG/DL UNSATURATED IBC (test code = 08928) 326 UG/DL CALC TOTAL IBC (test code = 2077) 358 UG/DL CALC % IRON SAT (test code = 2079) 9 % FERRITIN [ADDED]2018-09-09 00:00:00 Test Item Value Reference Range Interpretation Comments FERRITIN (test code = 2075) 19 NG/ML TRANSFERRIN [ADDED]2018-09-09 00:00:00 Test Item Value Reference Range Interpretation Comments TRANSFERRIN (test code = 4936) 298 MG/DL CBC W/AUTO DIFF WITH PLATELETS [ADDED]2018-09-09 00:00:00 Test Item Value Reference Range Interpretation Comments WBC (test code = 1001) 3.3 K/UL RBC (test code = 1002) 3.44 M/UL HEMOGLOBIN (test code = 1003) 9.2 G/DL HEMATOCRIT (test code = 1004) 28.9 % MCV (test code = 1005) 84.0 fL MCH (test code = 1006) 26.7 PG MCHC (test code = 1007) 31.8 G/DL RDW (test code = 1038) 15.8 % NEUTROPHILS (test code = 1008) 54.0 % LYMPHOCYTES (test code = 1010) 35.9 % MONOCYTES (test code = 1011) 8.9 % EOSINOPHILS (test code = 1012) 0.6 % BASOPHILS (test code = 1013) 0.6 % PLATELET COUNT (test code = 1015) 231 K/UL COMMENTS (test code = 1016) (NOTE) CBC W/AUTO DIFF WITH PLATELETS [ADDED]2018-09-09 00:00:00 Test Item Value Reference Range Interpretation Comments WBC (test code = 1001) 3.3 K/UL RBC (test code = 1002) 3.44 M/UL HEMOGLOBIN (test code = 1003) 9.2 G/DL HEMATOCRIT (test code = 1004) 28.9 % MCV (test code = 1005) 84.0 fL MCH (test code = 1006) 26.7 PG MCHC (test code = 1007) 31.8 G/DL RDW (test code = 1038) 15.8 % NEUTROPHILS (test code = 1008) 54.0 % LYMPHOCYTES (test code = 1010) 35.9 % MONOCYTES (test code = 1011) 8.9 % EOSINOPHILS (test code = 1012) 0.6 % BASOPHILS (test code = 1013) 0.6 % PLATELET COUNT (test code = 1015) 231 K/UL COMMENTS (test code = 1016) (NOTE) CBC W/AUTO DIFF WITH PLATELETS [ADDED]2018-09-09 00:00:00 Test Item Value Reference Range Interpretation Comments WBC (test code = 1001) 3.3 K/UL RBC (test code = 1002) 3.44 M/UL HEMOGLOBIN (test code = 1003) 9.2 G/DL HEMATOCRIT (test code = 1004) 28.9 % MCV (test code = 1005) 84.0 fL MCH (test code = 1006) 26.7 PG MCHC (test code = 1007) 31.8 G/DL RDW (test code = 1038) 15.8 % NEUTROPHILS (test code = 1008) 54.0 % LYMPHOCYTES (test code = 1010) 35.9 % MONOCYTES (test code = 1011) 8.9 % EOSINOPHILS (test code = 1012) 0.6 % BASOPHILS (test code = 1013) 0.6 % PLATELET COUNT (test code = 1015) 231 K/UL COMMENTS (test code = 1016) (NOTE) VITAMIN B 12 AND FOLIC ACID [ADDED]2018-09-09 00:00:00 Test Item Value Reference Range Interpretation Comments VITAMIN B-12 (test code = 2840) 166 PG/ML FOLIC ACID (test code = 2695) 9.9 UG/L VITAMIN B 12 AND FOLIC ACID [ADDED]2018-09-09 00:00:00 Test Item Value Reference Range Interpretation Comments VITAMIN B-12 (test code = 2840) 166 PG/ML FOLIC ACID (test code = 2695) 9.9 UG/L IRON BINDING CAPACITY AND IRON AND % SATURATION [ADDED]2018-09-09 00:00:00 Test Item Value Reference Range Interpretation Comments IRON, SERUM (test code = 2222) 32 UG/DL UNSATURATED IBC (test code = 47604) 326 UG/DL CALC TOTAL IBC (test code = 2077) 358 UG/DL CALC % IRON SAT (test code = 2079) 9 % IRON BINDING CAPACITY AND IRON AND % SATURATION [ADDED]2018-09-09 00:00:00 Test Item Value Reference Range Interpretation Comments IRON, SERUM (test code = 2222) 32 UG/DL UNSATURATED IBC (test code = 20783) 326 UG/DL CALC TOTAL IBC (test code = 2077) 358 UG/DL CALC % IRON SAT (test code = 2079) 9 % FERRITIN [ADDED]2018-09-09 00:00:00 Test Item Value Reference Range Interpretation Comments FERRITIN (test code = 2075) 19 NG/ML FERRITIN [ADDED]2018-09-09 00:00:00 Test Item Value Reference Range Interpretation Comments FERRITIN (test code = 2075) 19 NG/ML TRANSFERRIN [ADDED]2018-09-09 00:00:00 Test Item Value Reference Range Interpretation Comments TRANSFERRIN (test code = 4936) 298 MG/DL TRANSFERRIN [ADDED]2018-09-09 00:00:00 Test Item Value Reference Range Interpretation Comments TRANSFERRIN (test code = 4936) 298 MG/DL URIC [id number] 00:00:00 Test Item Value Reference Range Interpretation Comments URIC ACID (test code = 2233) 7.8 MG/DL URIC [id number] 00:00:00 Test Item Value Reference Range Interpretation Comments URIC ACID (test code = 2233) 7.8 MG/DL CBC W/AUTO [id number] 00:00:00 Test Item Value Reference Range Interpretation Comments WBC (test code = 1001) 3.5 K/UL RBC (test code = 1002) 3.55 M/UL HEMOGLOBIN (test code = 1003) 9.5 G/DL HEMATOCRIT (test code = 1004) 28.9 % MCV (test code = 1005) 81.4 fL MCH (test code = 1006) 26.8 PG MCHC (test code = 1007) 32.9 G/DL RDW (test code = 1038) 14.8 % NEUTROPHILS (test code = 1008) 74.1 % LYMPHOCYTES (test code = 1010) 16.2 % MONOCYTES (test code = 1011) 8.5 % EOSINOPHILS (test code = 1012) 0.6 % BASOPHILS (test code = 1013) 0.6 % PLATELET COUNT (test code = 1015) 230 K/UL CBC W/AUTO [id number] 00:00:00 Test Item Value Reference Range Interpretation Comments WBC (test code = 1001) 3.5 K/UL RBC (test code = 1002) 3.55 M/UL HEMOGLOBIN (test code = 1003) 9.5 G/DL HEMATOCRIT (test code = 1004) 28.9 % MCV (test code = 1005) 81.4 fL MCH (test code = 1006) 26.8 PG MCHC (test code = 1007) 32.9 G/DL RDW (test code = 1038) 14.8 % NEUTROPHILS (test code = 1008) 74.1 % LYMPHOCYTES (test code = 1010) 16.2 % MONOCYTES (test code = 1011) 8.5 % EOSINOPHILS (test code = 1012) 0.6 % BASOPHILS (test code = 1013) 0.6 % PLATELET COUNT (test code = 1015) 230 K/UL CBC W/AUTO [id number] 00:00:00 Test Item Value Reference Range Interpretation Comments WBC (test code = 1001) 3.5 K/UL RBC (test code = 1002) 3.55 M/UL HEMOGLOBIN (test code = 1003) 9.5 G/DL HEMATOCRIT (test code = 1004) 28.9 % MCV (test code = 1005) 81.4 fL MCH (test code = 1006) 26.8 PG MCHC (test code = 1007) 32.9 G/DL RDW (test code = 1038) 14.8 % NEUTROPHILS (test code = 1008) 74.1 % LYMPHOCYTES (test code = 1010) 16.2 % MONOCYTES (test code = 1011) 8.5 % EOSINOPHILS (test code = 1012) 0.6 % BASOPHILS (test code = 1013) 0.6 % PLATELET COUNT (test code = 1015) 230 K/UL COMPREHENSIVE METABOLIC [id number] 00:00:00 Test Item Value Reference Range Interpretation Comments GLUCOSE (test code = 2217) 84 MG/DL BUN (test code = 2208) 12 MG/DL CREATININE (test code = 2214) 1.02 MG/DL eGFR AMER. (test code 72 ML/MIN/1.73 = 41872) eGFR NON- AMER. (test 62 ML/MIN/1.73 code = 40057) CALC BUN/CREAT (test code = 12 RATIO 2235) SODIUM (test code = 2231) 140 MEQ/L POTASSIUM (test code = 2228) 3.8 MEQ/L CHLORIDE (test code = 2215) 107 MEQ/L CARBON DIOXIDE (test code = 25 MEQ/L 220) CALCIUM (test code = 2209) 9.4 MG/DL PROTEIN, TOTAL (test code = 9.7 G/DL 2228) ALBUMIN (test code = 2201) 3.7 G/DL CALC GLOBULIN (test code = 6.0 G/DL 2240) CALC A/G RATIO (test code = 0.6 RATIO 2234) BILIRUBIN, TOTAL (test code = 0.3 MG/DL 2206) ALKALINE PHOSPHATASE (test 90 U/L code = 2204) AST (test code = 2218) 23 U/L ALT (test code = 2219) 9 U/L COMPREHENSIVE METABOLIC [id number] 00:00:00 Test Item Value Reference Range Interpretation Comments GLUCOSE (test code = 2217) 84 MG/DL BUN (test code = 2208) 12 MG/DL CREATININE (test code = 2214) 1.02 MG/DL eGFR AMER. (test code 72 ML/MIN/1.73 = 22305) eGFR NON- AMER. (test 62 ML/MIN/1.73 code = 38827) CALC BUN/CREAT (test code = 12 RATIO 2235) SODIUM (test code = 2231) 140 MEQ/L POTASSIUM (test code = 2228) 3.8 MEQ/L CHLORIDE (test code = 2215) 107 MEQ/L CARBON DIOXIDE (test code = 25 MEQ/L 220) CALCIUM (test code = 2209) 9.4 MG/DL PROTEIN, TOTAL (test code = 9.7 G/DL 2229) ALBUMIN (test code = 2201) 3.7 G/DL CALC GLOBULIN (test code = 6.0 G/DL 2240) CALC A/G RATIO (test code = 0.6 RATIO 2234) BILIRUBIN, TOTAL (test code = 0.3 MG/DL 2207) ALKALINE PHOSPHATASE (test 90 U/L code = 2204) AST (test code = 2218) 23 U/L ALT (test code = 2219) 9 U/L URIC [id number] 00:00:00 Test Item Value Reference Range Interpretation Comments URIC ACID (test code = 2233) 7.8 MG/DL CBC W/AUTO [id number] 00:00:00 Test Item Value Reference Range Interpretation Comments WBC (test code = 1001) 3.5 K/UL RBC (test code = 1002) 3.55 M/UL HEMOGLOBIN (test code = 1003) 9.5 G/DL HEMATOCRIT (test code = 1004) 28.9 % MCV (test code = 1005) 81.4 fL MCH (test code = 1006) 26.8 PG MCHC (test code = 1007) 32.9 G/DL RDW (test code = 1038) 14.8 % NEUTROPHILS (test code = 1008) 74.1 % LYMPHOCYTES (test code = 1010) 16.2 % MONOCYTES (test code = 1011) 8.5 % EOSINOPHILS (test code = 1012) 0.6 % BASOPHILS (test code = 1013) 0.6 % PLATELET COUNT (test code = 1015) 230 K/UL CBC W/AUTO [id number] 00:00:00 Test Item Value Reference Range Interpretation Comments WBC (test code = 1001) 3.5 K/UL RBC (test code = 1002) 3.55 M/UL HEMOGLOBIN (test code = 1003) 9.5 G/DL HEMATOCRIT (test code = 1004) 28.9 % MCV (test code = 1005) 81.4 fL MCH (test code = 1006) 26.8 PG MCHC (test code = 1007) 32.9 G/DL RDW (test code = 1038) 14.8 % NEUTROPHILS (test code = 1008) 74.1 % LYMPHOCYTES (test code = 1010) 16.2 % MONOCYTES (test code = 1011) 8.5 % EOSINOPHILS (test code = 1012) 0.6 % BASOPHILS (test code = 1013) 0.6 % PLATELET COUNT (test code = 1015) 230 K/UL COMPREHENSIVE METABOLIC [id number] 00:00:00 Test Item Value Reference Range Interpretation Comments GLUCOSE (test code = 2217) 84 MG/DL BUN (test code = 2208) 12 MG/DL CREATININE (test code = 2214) 1.02 MG/DL eGFR AMER. (test code 72 ML/MIN/1.73 = 37037) eGFR NON- AMER. (test 62 ML/MIN/1.73 code = 52781) CALC BUN/CREAT (test code = 12 RATIO 2235) SODIUM (test code = 2231) 140 MEQ/L POTASSIUM (test code = 2228) 3.8 MEQ/L CHLORIDE (test code = 2215) 107 MEQ/L CARBON DIOXIDE (test code = 25 MEQ/L 2205) CALCIUM (test code = 2209) 9.4 MG/DL PROTEIN, TOTAL (test code = 9.7 G/DL 2228) ALBUMIN (test code = 2201) 3.7 G/DL CALC GLOBULIN (test code = 6.0 G/DL 2239) CALC A/G RATIO (test code = 0.6 RATIO 2233) BILIRUBIN, TOTAL (test code = 0.3 MG/DL 2206) ALKALINE PHOSPHATASE (test 90 U/L code = 2204) AST (test code = 2218) 23 U/L ALT (test code = 2219) 9 U/L URIC [id number] 00:00:00 Test Item Value Reference Range Interpretation Comments URIC ACID (test code = 2233) 7.8 MG/DL URIC [id number] 00:00:00 Test Item Value Reference Range Interpretation Comments URIC ACID (test code = 2233) 7.8 MG/DL CBC W/AUTO [id number] 00:00:00 Test Item Value Reference Range Interpretation Comments WBC (test code = 1001) 3.5 K/UL RBC (test code = 1002) 3.55 M/UL HEMOGLOBIN (test code = 1003) 9.5 G/DL HEMATOCRIT (test code = 1004) 28.9 % MCV (test code = 1005) 81.4 fL MCH (test code = 1006) 26.8 PG MCHC (test code = 1007) 32.9 G/DL RDW (test code = 1038) 14.8 % NEUTROPHILS (test code = 1008) 74.1 % LYMPHOCYTES (test code = 1010) 16.2 % MONOCYTES (test code = 1011) 8.5 % EOSINOPHILS (test code = 1012) 0.6 % BASOPHILS (test code = 1013) 0.6 % PLATELET COUNT (test code = 1015) 230 K/UL CBC W/AUTO [id number] 00:00:00 Test Item Value Reference Range Interpretation Comments WBC (test code = 1001) 3.5 K/UL RBC (test code = 1002) 3.55 M/UL HEMOGLOBIN (test code = 1003) 9.5 G/DL HEMATOCRIT (test code = 1004) 28.9 % MCV (test code = 1005) 81.4 fL MCH (test code = 1006) 26.8 PG MCHC (test code = 1007) 32.9 G/DL RDW (test code = 1038) 14.8 % NEUTROPHILS (test code = 1008) 74.1 % LYMPHOCYTES (test code = 1010) 16.2 % MONOCYTES (test code = 1011) 8.5 % EOSINOPHILS (test code = 1012) 0.6 % BASOPHILS (test code = 1013) 0.6 % PLATELET COUNT (test code = 1015) 230 K/UL CBC W/AUTO [id number] 00:00:00 Test Item Value Reference Range Interpretation Comments WBC (test code = 1001) 3.5 K/UL RBC (test code = 1002) 3.55 M/UL HEMOGLOBIN (test code = 1003) 9.5 G/DL HEMATOCRIT (test code = 1004) 28.9 % MCV (test code = 1005) 81.4 fL MCH (test code = 1006) 26.8 PG MCHC (test code = 1007) 32.9 G/DL RDW (test code = 1038) 14.8 % NEUTROPHILS (test code = 1008) 74.1 % LYMPHOCYTES (test code = 1010) 16.2 % MONOCYTES (test code = 1011) 8.5 % EOSINOPHILS (test code = 1012) 0.6 % BASOPHILS (test code = 1013) 0.6 % PLATELET COUNT (test code = 1015) 230 K/UL COMPREHENSIVE METABOLIC [id number] 00:00:00 Test Item Value Reference Range Interpretation Comments GLUCOSE (test code = 2217) 84 MG/DL BUN (test code = 2208) 12 MG/DL CREATININE (test code = 2214) 1.02 MG/DL eGFR AMER. (test code 72 ML/MIN/1.73 = 63468) eGFR NON- AMER. (test 62 ML/MIN/1.73 code = 43769) CALC BUN/CREAT (test code = 12 RATIO 2235) SODIUM (test code = 2231) 140 MEQ/L POTASSIUM (test code = 2228) 3.8 MEQ/L CHLORIDE (test code = 2215) 107 MEQ/L CARBON DIOXIDE (test code = 25 MEQ/L 2205) CALCIUM (test code = 2209) 9.4 MG/DL PROTEIN, TOTAL (test code = 9.7 G/DL 2228) ALBUMIN (test code = 2201) 3.7 G/DL CALC GLOBULIN (test code = 6.0 G/DL 2239) CALC A/G RATIO (test code = 0.6 RATIO 2233) BILIRUBIN, TOTAL (test code = 0.3 MG/DL 2206) ALKALINE PHOSPHATASE (test 90 U/L code = 2204) AST (test code = 2218) 23 U/L ALT (test code = 2219) 9 U/L COMPREHENSIVE METABOLIC [id number] 00:00:00 Test Item Value Reference Range Interpretation Comments GLUCOSE (test code = 2217) 84 MG/DL BUN (test code = 2208) 12 MG/DL CREATININE (test code = 2214) 1.02 MG/DL eGFR AMER. (test code 72 ML/MIN/1.73 = 42383) eGFR NON- AMER. (test 62 ML/MIN/1.73 code = 82156) CALC BUN/CREAT (test code = 12 RATIO 2235) SODIUM (test code = 2231) 140 MEQ/L POTASSIUM (test code = 2228) 3.8 MEQ/L CHLORIDE (test code = 2215) 107 MEQ/L CARBON DIOXIDE (test code = 25 MEQ/L 220) CALCIUM (test code = 2209) 9.4 MG/DL PROTEIN, TOTAL (test code = 9.7 G/DL 2229) ALBUMIN (test code = 2201) 3.7 G/DL CALC GLOBULIN (test code = 6.0 G/DL 0) CALC A/G RATIO (test code = 0.6 RATIO 2233) BILIRUBIN, TOTAL (test code = 0.3 MG/DL 2206) ALKALINE PHOSPHATASE (test 90 U/L code = 2204) AST (test code = 2218) 23 U/L ALT (test code = 2219) 9 U/L CBC W/AUTO [id number] 00:00:00 Test Item Value Reference Range Interpretation Comments WBC (test code = 1001) 4.5 K/UL RBC (test code = 1002) 3.95 M/UL HEMOGLOBIN (test code = 1003) 9.1 G/DL HEMATOCRIT (test code = 1004) 30.4 % MCV (test code = 1005) 77.0 fL MCH (test code = 1006) 23.0 PG MCHC (test code = 1007) 29.9 G/DL RDW (test code = 1038) 16.9 % NEUTROPHILS (test code = 1008) 57.4 % LYMPHOCYTES (test code = 1010) 30.1 % MONOCYTES (test code = 1011) 8.5 % EOSINOPHILS (test code = 1012) 3.6 % BASOPHILS (test code = 1013) 0.4 % PLATELET COUNT (test code = 1015) 317 K/UL CBC W/AUTO [id number] 00:00:00 Test Item Value Reference Range Interpretation Comments WBC (test code = 1001) 4.5 K/UL RBC (test code = 1002) 3.95 M/UL HEMOGLOBIN (test code = 1003) 9.1 G/DL HEMATOCRIT (test code = 1004) 30.4 % MCV (test code = 1005) 77.0 fL MCH (test code = 1006) 23.0 PG MCHC (test code = 1007) 29.9 G/DL RDW (test code = 1038) 16.9 % NEUTROPHILS (test code = 1008) 57.4 % LYMPHOCYTES (test code = 1010) 30.1 % MONOCYTES (test code = 1011) 8.5 % EOSINOPHILS (test code = 1012) 3.6 % BASOPHILS (test code = 1013) 0.4 % PLATELET COUNT (test code = 1015) 317 K/UL CBC W/AUTO [id number] 00:00:00 Test Item Value Reference Range Interpretation Comments WBC (test code = 1001) 4.5 K/UL RBC (test code = 1002) 3.95 M/UL HEMOGLOBIN (test code = 1003) 9.1 G/DL HEMATOCRIT (test code = 1004) 30.4 % MCV (test code = 1005) 77.0 fL MCH (test code = 1006) 23.0 PG MCHC (test code = 1007) 29.9 G/DL RDW (test code = 1038) 16.9 % NEUTROPHILS (test code = 1008) 57.4 % LYMPHOCYTES (test code = 1010) 30.1 % MONOCYTES (test code = 1011) 8.5 % EOSINOPHILS (test code = 1012) 3.6 % BASOPHILS (test code = 1013) 0.4 % PLATELET COUNT (test code = 1015) 317 K/UL LIPID [id number] 00:00:00 Test Item Value Reference Range Interpretation Comments CHOLESTEROL (test code = 2210) 215 MG/DL TRIGLYCERIDES (test code = 2232) 61 MG/DL HDL CHOLESTEROL (test code = 2220) 93 MG/DL CALC LDL CHOL (test code = 2237) 110 MG/DL RISK RATIO LDL/HDL (test code = 1.18 RATIO 2238) LIPID [id number] 00:00:00 Test Item Value Reference Range Interpretation Comments CHOLESTEROL (test code = 2210) 215 MG/DL TRIGLYCERIDES (test code = 2232) 61 MG/DL HDL CHOLESTEROL (test code = 2220) 93 MG/DL CALC LDL CHOL (test code = 2237) 110 MG/DL RISK RATIO LDL/HDL (test code = 1.18 RATIO 2238) COMPREHENSIVE METABOLIC [id number] 00:00:00 Test Item Value Reference Range Interpretation Comments GLUCOSE (test code = 2217) 93 MG/DL BUN (test code = 2208) 20 MG/DL CREATININE (test code = 2214) 1.18 MG/DL eGFR AMER. (test code 61 ML/MIN/1.73 = 30461) eGFR NON- AMER. (test 52 ML/MIN/1.73 code = 47707) CALC BUN/CREAT (test code = 17 RATIO 2235) SODIUM (test code = 2231) 138 MEQ/L POTASSIUM (test code = 2228) 4.0 MEQ/L CHLORIDE (test code = 2215) 105 MEQ/L CARBON DIOXIDE (test code = 23 MEQ/L 220) CALCIUM (test code = 2209) 9.6 MG/DL PROTEIN, TOTAL (test code = 10.3 G/DL 2228) ALBUMIN (test code = 2201) 3.9 G/DL CALC GLOBULIN (test code = 6.4 G/DL 2240) CALC A/G RATIO (test code = 0.6 RATIO 2234) BILIRUBIN, TOTAL (test code = 0.4 MG/DL 2206) ALKALINE PHOSPHATASE (test 105 U/L code = 2204) AST (test code = 2218) 39 U/L ALT (test code = 2219) 15 U/L COMPREHENSIVE METABOLIC [id number] 00:00:00 Test Item Value Reference Range Interpretation Comments GLUCOSE (test code = 2217) 93 MG/DL BUN (test code = 2208) 20 MG/DL CREATININE (test code = 2214) 1.18 MG/DL eGFR AMER. (test code 61 ML/MIN/1.73 = 71750) eGFR NON- AMER. (test 52 ML/MIN/1.73 code = 45324) CALC BUN/CREAT (test code = 17 RATIO 2235) SODIUM (test code = 2231) 138 MEQ/L POTASSIUM (test code = 2228) 4.0 MEQ/L CHLORIDE (test code = 2215) 105 MEQ/L CARBON DIOXIDE (test code = 23 MEQ/L 2205) CALCIUM (test code = 2209) 9.6 MG/DL PROTEIN, TOTAL (test code = 10.3 G/DL 2228) ALBUMIN (test code = 2201) 3.9 G/DL CALC GLOBULIN (test code = 6.4 G/DL 2240) CALC A/G RATIO (test code = 0.6 RATIO 2234) BILIRUBIN, TOTAL (test code = 0.4 MG/DL 2206) ALKALINE PHOSPHATASE (test 105 U/L code = 2204) AST (test code = 2218) 39 U/L ALT (test code = 2219) 15 U/L CBC W/AUTO [id number] 00:00:00 Test Item Value Reference Range Interpretation Comments WBC (test code = 1001) 4.5 K/UL RBC (test code = 1002) 3.95 M/UL HEMOGLOBIN (test code = 1003) 9.1 G/DL HEMATOCRIT (test code = 1004) 30.4 % MCV (test code = 1005) 77.0 fL MCH (test code = 1006) 23.0 PG MCHC (test code = 1007) 29.9 G/DL RDW (test code = 1038) 16.9 % NEUTROPHILS (test code = 1008) 57.4 % LYMPHOCYTES (test code = 1010) 30.1 % MONOCYTES (test code = 1011) 8.5 % EOSINOPHILS (test code = 1012) 3.6 % BASOPHILS (test code = 1013) 0.4 % PLATELET COUNT (test code = 1015) 317 K/UL CBC W/AUTO [id number] 00:00:00 Test Item Value Reference Range Interpretation Comments WBC (test code = 1001) 4.5 K/UL RBC (test code = 1002) 3.95 M/UL HEMOGLOBIN (test code = 1003) 9.1 G/DL HEMATOCRIT (test code = 1004) 30.4 % MCV (test code = 1005) 77.0 fL MCH (test code = 1006) 23.0 PG MCHC (test code = 1007) 29.9 G/DL RDW (test code = 1038) 16.9 % NEUTROPHILS (test code = 1008) 57.4 % LYMPHOCYTES (test code = 1010) 30.1 % MONOCYTES (test code = 1011) 8.5 % EOSINOPHILS (test code = 1012) 3.6 % BASOPHILS (test code = 1013) 0.4 % PLATELET COUNT (test code = 1015) 317 K/UL LIPID [id number] 00:00:00 Test Item Value Reference Range Interpretation Comments CHOLESTEROL (test code = 2210) 215 MG/DL TRIGLYCERIDES (test code = 2232) 61 MG/DL HDL CHOLESTEROL (test code = 2220) 93 MG/DL CALC LDL CHOL (test code = 2237) 110 MG/DL RISK RATIO LDL/HDL (test code = 1.18 RATIO 2238) COMPREHENSIVE METABOLIC [id number] 00:00:00 Test Item Value Reference Range Interpretation Comments GLUCOSE (test code = 2217) 93 MG/DL BUN (test code = 2208) 20 MG/DL CREATININE (test code = 2214) 1.18 MG/DL eGFR AMER. (test code 61 ML/MIN/1.73 = 03189) eGFR NON- AMER. (test 52 ML/MIN/1.73 code = 86430) CALC BUN/CREAT (test code = 17 RATIO 2235) SODIUM (test code = 2231) 138 MEQ/L POTASSIUM (test code = 2228) 4.0 MEQ/L CHLORIDE (test code = 2215) 105 MEQ/L CARBON DIOXIDE (test code = 23 MEQ/L 220) CALCIUM (test code = 2209) 9.6 MG/DL PROTEIN, TOTAL (test code = 10.3 G/DL 2228) ALBUMIN (test code = 2201) 3.9 G/DL CALC GLOBULIN (test code = 6.4 G/DL 2240) CALC A/G RATIO (test code = 0.6 RATIO 2233) BILIRUBIN, TOTAL (test code = 0.4 MG/DL 2206) ALKALINE PHOSPHATASE (test 105 U/L code = 2204) AST (test code = 2218) 39 U/L ALT (test code = 2219) 15 U/L CBC W/AUTO [id number] 00:00:00 Test Item Value Reference Range Interpretation Comments WBC (test code = 1001) 4.5 K/UL RBC (test code = 1002) 3.95 M/UL HEMOGLOBIN (test code = 1003) 9.1 G/DL HEMATOCRIT (test code = 1004) 30.4 % MCV (test code = 1005) 77.0 fL MCH (test code = 1006) 23.0 PG MCHC (test code = 1007) 29.9 G/DL RDW (test code = 1038) 16.9 % NEUTROPHILS (test code = 1008) 57.4 % LYMPHOCYTES (test code = 1010) 30.1 % MONOCYTES (test code = 1011) 8.5 % EOSINOPHILS (test code = 1012) 3.6 % BASOPHILS (test code = 1013) 0.4 % PLATELET COUNT (test code = 1015) 317 K/UL CBC W/AUTO [id number] 00:00:00 Test Item Value Reference Range Interpretation Comments WBC (test code = 1001) 4.5 K/UL RBC (test code = 1002) 3.95 M/UL HEMOGLOBIN (test code = 1003) 9.1 G/DL HEMATOCRIT (test code = 1004) 30.4 % MCV (test code = 1005) 77.0 fL MCH (test code = 1006) 23.0 PG MCHC (test code = 1007) 29.9 G/DL RDW (test code = 1038) 16.9 % NEUTROPHILS (test code = 1008) 57.4 % LYMPHOCYTES (test code = 1010) 30.1 % MONOCYTES (test code = 1011) 8.5 % EOSINOPHILS (test code = 1012) 3.6 % BASOPHILS (test code = 1013) 0.4 % PLATELET COUNT (test code = 1015) 317 K/UL CBC W/AUTO [id number] 00:00:00 Test Item Value Reference Range Interpretation Comments WBC (test code = 1001) 4.5 K/UL RBC (test code = 1002) 3.95 M/UL HEMOGLOBIN (test code = 1003) 9.1 G/DL HEMATOCRIT (test code = 1004) 30.4 % MCV (test code = 1005) 77.0 fL MCH (test code = 1006) 23.0 PG MCHC (test code = 1007) 29.9 G/DL RDW (test code = 1038) 16.9 % NEUTROPHILS (test code = 1008) 57.4 % LYMPHOCYTES (test code = 1010) 30.1 % MONOCYTES (test code = 1011) 8.5 % EOSINOPHILS (test code = 1012) 3.6 % BASOPHILS (test code = 1013) 0.4 % PLATELET COUNT (test code = 1015) 317 K/UL LIPID [id number] 00:00:00 Test Item Value Reference Range Interpretation Comments CHOLESTEROL (test code = 2210) 215 MG/DL TRIGLYCERIDES (test code = 2232) 61 MG/DL HDL CHOLESTEROL (test code = 2220) 93 MG/DL CALC LDL CHOL (test code = 2237) 110 MG/DL RISK RATIO LDL/HDL (test code = 1.18 RATIO 2238) LIPID [id number] 00:00:00 Test Item Value Reference Range Interpretation Comments CHOLESTEROL (test code = 2210) 215 MG/DL TRIGLYCERIDES (test code = 2232) 61 MG/DL HDL CHOLESTEROL (test code = 2220) 93 MG/DL CALC LDL CHOL (test code = 2237) 110 MG/DL RISK RATIO LDL/HDL (test code = 1.18 RATIO 2238) COMPREHENSIVE METABOLIC [id number] 00:00:00 Test Item Value Reference Range Interpretation Comments GLUCOSE (test code = 2217) 93 MG/DL BUN (test code = 2208) 20 MG/DL CREATININE (test code = 2214) 1.18 MG/DL eGFR AMER. (test code 61 ML/MIN/1.73 = 57495) eGFR NON- AMER. (test 52 ML/MIN/1.73 code = 44278) CALC BUN/CREAT (test code = 17 RATIO 2235) SODIUM (test code = 2231) 138 MEQ/L POTASSIUM (test code = 2228) 4.0 MEQ/L CHLORIDE (test code = 2215) 105 MEQ/L CARBON DIOXIDE (test code = 23 MEQ/L 2205) CALCIUM (test code = 2209) 9.6 MG/DL PROTEIN, TOTAL (test code = 10.3 G/DL 2228) ALBUMIN (test code = 2201) 3.9 G/DL CALC GLOBULIN (test code = 6.4 G/DL 2240) CALC A/G RATIO (test code = 0.6 RATIO 2234) BILIRUBIN, TOTAL (test code = 0.4 MG/DL 2206) ALKALINE PHOSPHATASE (test 105 U/L code = 2204) AST (test code = 2218) 39 U/L ALT (test code = 2219) 15 U/L COMPREHENSIVE METABOLIC [id number] 00:00:00 Test Item Value Reference Range Interpretation Comments GLUCOSE (test code = 2217) 93 MG/DL BUN (test code = 2208) 20 MG/DL CREATININE (test code = 2214) 1.18 MG/DL eGFR AMER. (test code 61 ML/MIN/1.73 = 28496) eGFR NON- AMER. (test 52 ML/MIN/1.73 code = 68528) CALC BUN/CREAT (test code = 17 RATIO 2235) SODIUM (test code = 2231) 138 MEQ/L POTASSIUM (test code = 2228) 4.0 MEQ/L CHLORIDE (test code = 2215) 105 MEQ/L CARBON DIOXIDE (test code = 23 MEQ/L 220) CALCIUM (test code = 2209) 9.6 MG/DL PROTEIN, TOTAL (test code = 10.3 G/DL 222) ALBUMIN (test code = 2201) 3.9 G/DL CALC GLOBULIN (test code = 6.4 G/DL 2239) CALC A/G RATIO (test code = 0.6 RATIO 2233) BILIRUBIN, TOTAL (test code = 0.4 MG/DL 2206) ALKALINE PHOSPHATASE (test 105 U/L code = 2204) AST (test code = 2218) 39 U/L ALT (test code = 2219) 15 U/L CULTURE, URINE [ADDED]2017-08-24 00:00:00 Test Item Value Reference Range Interpretation Comments CULTURE, URINE (test SPECIMEN NUMBER: code = 10480) [id number] CULTURE, URINE [ADDED]2017-08-24 00:00:00 Test Item Value Reference Range Interpretation Comments CULTURE, URINE (test SPECIMEN NUMBER: code = 68522) [id number] CULTURE, URINE [ADDED]2017-08-24 00:00:00 Test Item Value Reference Range Interpretation Comments CULTURE, URINE (test SPECIMEN NUMBER: code = 49202) [id number] CULTURE, URINE [ADDED]2017-08-24 00:00:00 Test Item Value Reference Range Interpretation Comments CULTURE, URINE (test SPECIMEN NUMBER: code = 93757) [id number] CULTURE, URINE [ADDED]2017-08-24 00:00:00 Test Item Value Reference Range Interpretation Comments CULTURE, URINE (test SPECIMEN NUMBER: code = 06439) [id number] CBC W/AUTO [id number] 00:00:00 Test Item Value Reference Range Interpretation Comments WBC (test code = 1001) 3.3 K/UL RBC (test code = 1002) 3.53 M/UL HEMOGLOBIN (test code = 1003) 8.0 G/DL HEMATOCRIT (test code = 1004) 26.5 % MCV (test code = 1005) 75.1 fL MCH (test code = 1006) 22.7 PG MCHC (test code = 1007) 30.2 G/DL RDW (test code = 1038) 17.1 % NEUTROPHILS (test code = 1008) 85.3 % LYMPHOCYTES (test code = 1010) 12.1 % MONOCYTES (test code = 1011) 1.7 % EOSINOPHILS (test code = 1012) 0.0 % BASOPHILS (test code = 1013) 0.9 % PLATELET COUNT (test code = 1015) 287 K/UL COMMENTS (test code = 1016) (NOTE) CBC W/AUTO [id number] 00:00:00 Test Item Value Reference Range Interpretation Comments WBC (test code = 1001) 3.3 K/UL RBC (test code = 1002) 3.53 M/UL HEMOGLOBIN (test code = 1003) 8.0 G/DL HEMATOCRIT (test code = 1004) 26.5 % MCV (test code = 1005) 75.1 fL MCH (test code = 1006) 22.7 PG MCHC (test code = 1007) 30.2 G/DL RDW (test code = 1038) 17.1 % NEUTROPHILS (test code = 1008) 85.3 % LYMPHOCYTES (test code = 1010) 12.1 % MONOCYTES (test code = 1011) 1.7 % EOSINOPHILS (test code = 1012) 0.0 % BASOPHILS (test code = 1013) 0.9 % PLATELET COUNT (test code = 1015) 287 K/UL COMMENTS (test code = 1016) (NOTE) CBC W/AUTO [id number] 00:00:00 Test Item Value Reference Range Interpretation Comments WBC (test code = 1001) 3.3 K/UL RBC (test code = 1002) 3.53 M/UL HEMOGLOBIN (test code = 1003) 8.0 G/DL HEMATOCRIT (test code = 1004) 26.5 % MCV (test code = 1005) 75.1 fL MCH (test code = 1006) 22.7 PG MCHC (test code = 1007) 30.2 G/DL RDW (test code = 1038) 17.1 % NEUTROPHILS (test code = 1008) 85.3 % LYMPHOCYTES (test code = 1010) 12.1 % MONOCYTES (test code = 1011) 1.7 % EOSINOPHILS (test code = 1012) 0.0 % BASOPHILS (test code = 1013) 0.9 % PLATELET COUNT (test code = 1015) 287 K/UL COMMENTS (test code = 1016) (NOTE) COMPREHENSIVE METABOLIC [id number] 00:00:00 Test Item Value Reference Range Interpretation Comments GLUCOSE (test code = 2217) 92 MG/DL BUN (test code = 2208) 23 MG/DL CREATININE (test code = 2214) 1.27 MG/DL eGFR AMER. (test code 55 ML/MIN/1.73 = 27834) eGFR NON- AMER. (test 48 ML/MIN/1.73 code = 87324) CALC BUN/CREAT (test code = 18 RATIO 2235) SODIUM (test code = 2231) 137 MEQ/L POTASSIUM (test code = 2228) 4.7 MEQ/L CHLORIDE (test code = 2215) 105 MEQ/L CARBON DIOXIDE (test code = 22 MEQ/L 2206) CALCIUM (test code = 2209) 9.4 MG/DL PROTEIN, TOTAL (test code = 10.1 G/DL 222) ALBUMIN (test code = 2201) 4.2 G/DL CALC GLOBULIN (test code = 5.9 G/DL 2240) CALC A/G RATIO (test code = 0.7 RATIO 2234) BILIRUBIN, TOTAL (test code = 0.4 MG/DL 2206) ALKALINE PHOSPHATASE (test 102 U/L code = 220) AST (test code = 2218) 31 U/L ALT (test code = 2219) 23 U/L COMPREHENSIVE METABOLIC [id number] 00:00:00 Test Item Value Reference Range Interpretation Comments GLUCOSE (test code = 2217) 92 MG/DL BUN (test code = 2208) 23 MG/DL CREATININE (test code = 2214) 1.27 MG/DL eGFR AMER. (test code 55 ML/MIN/1.73 = 47939) eGFR NON- AMER. (test 48 ML/MIN/1.73 code = 34409) CALC BUN/CREAT (test code = 18 RATIO 2235) SODIUM (test code = 2231) 137 MEQ/L POTASSIUM (test code = 2228) 4.7 MEQ/L CHLORIDE (test code = 2215) 105 MEQ/L CARBON DIOXIDE (test code = 22 MEQ/L 2206) CALCIUM (test code = 2209) 9.4 MG/DL PROTEIN, TOTAL (test code = 10.1 G/DL 2228) ALBUMIN (test code = 2201) 4.2 G/DL CALC GLOBULIN (test code = 5.9 G/DL 2240) CALC A/G RATIO (test code = 0.7 RATIO 2234) BILIRUBIN, TOTAL (test code = 0.4 MG/DL 2206) ALKALINE PHOSPHATASE (test 102 U/L code = 2204) AST (test code = 2218) 31 U/L ALT (test code = 2219) 23 U/L HEPATITIS C REFLEX [id number] 00:00:00 Test Item Value Reference Range Interpretation Comments HEPATITIS C ANTIBODY (test code NON-REACTIVE = 4675) HEPATITIS C REFLEX [id number] 00:00:00 Test Item Value Reference Range Interpretation Comments HEPATITIS C ANTIBODY (test code NON-REACTIVE = 4675) CBC W/AUTO [id number] 00:00:00 Test Item Value Reference Range Interpretation Comments WBC (test code = 1001) 3.3 K/UL RBC (test code = 1002) 3.53 M/UL HEMOGLOBIN (test code = 1003) 8.0 G/DL HEMATOCRIT (test code = 1004) 26.5 % MCV (test code = 1005) 75.1 fL MCH (test code = 1006) 22.7 PG MCHC (test code = 1007) 30.2 G/DL RDW (test code = 1038) 17.1 % NEUTROPHILS (test code = 1008) 85.3 % LYMPHOCYTES (test code = 1010) 12.1 % MONOCYTES (test code = 1011) 1.7 % EOSINOPHILS (test code = 1012) 0.0 % BASOPHILS (test code = 1013) 0.9 % PLATELET COUNT (test code = 1015) 287 K/UL COMMENTS (test code = 1016) (NOTE) CBC W/AUTO [id number] 00:00:00 Test Item Value Reference Range Interpretation Comments WBC (test code = 1001) 3.3 K/UL RBC (test code = 1002) 3.53 M/UL HEMOGLOBIN (test code = 1003) 8.0 G/DL HEMATOCRIT (test code = 1004) 26.5 % MCV (test code = 1005) 75.1 fL MCH (test code = 1006) 22.7 PG MCHC (test code = 1007) 30.2 G/DL RDW (test code = 1038) 17.1 % NEUTROPHILS (test code = 1008) 85.3 % LYMPHOCYTES (test code = 1010) 12.1 % MONOCYTES (test code = 1011) 1.7 % EOSINOPHILS (test code = 1012) 0.0 % BASOPHILS (test code = 1013) 0.9 % PLATELET COUNT (test code = 1015) 287 K/UL COMMENTS (test code = 1016) (NOTE) COMPREHENSIVE METABOLIC [id number] 00:00:00 Test Item Value Reference Range Interpretation Comments GLUCOSE (test code = 2217) 92 MG/DL BUN (test code = 2208) 23 MG/DL CREATININE (test code = 2214) 1.27 MG/DL eGFR AMER. (test code 55 ML/MIN/1.73 = 53232) eGFR NON- AMER. (test 48 ML/MIN/1.73 code = 31770) CALC BUN/CREAT (test code = 18 RATIO 2235) SODIUM (test code = 2231) 137 MEQ/L POTASSIUM (test code = 2228) 4.7 MEQ/L CHLORIDE (test code = 2215) 105 MEQ/L CARBON DIOXIDE (test code = 22 MEQ/L 2205) CALCIUM (test code = 2209) 9.4 MG/DL PROTEIN, TOTAL (test code = 10.1 G/DL 2228) ALBUMIN (test code = 2201) 4.2 G/DL CALC GLOBULIN (test code = 5.9 G/DL 224) CALC A/G RATIO (test code = 0.7 RATIO 2233) BILIRUBIN, TOTAL (test code = 0.4 MG/DL 2206) ALKALINE PHOSPHATASE (test 102 U/L code = 2204) AST (test code = 2218) 31 U/L ALT (test code = 2219) 23 U/L HEPATITIS C REFLEX [id number] 00:00:00 Test Item Value Reference Range Interpretation Comments HEPATITIS C ANTIBODY (test code NON-REACTIVE = 4675) CBC W/AUTO [id number] 00:00:00 Test Item Value Reference Range Interpretation Comments WBC (test code = 1001) 3.3 K/UL RBC (test code = 1002) 3.53 M/UL HEMOGLOBIN (test code = 1003) 8.0 G/DL HEMATOCRIT (test code = 1004) 26.5 % MCV (test code = 1005) 75.1 fL MCH (test code = 1006) 22.7 PG MCHC (test code = 1007) 30.2 G/DL RDW (test code = 1038) 17.1 % NEUTROPHILS (test code = 1008) 85.3 % LYMPHOCYTES (test code = 1010) 12.1 % MONOCYTES (test code = 1011) 1.7 % EOSINOPHILS (test code = 1012) 0.0 % BASOPHILS (test code = 1013) 0.9 % PLATELET COUNT (test code = 1015) 287 K/UL COMMENTS (test code = 1016) (NOTE) CBC W/AUTO [id number] 00:00:00 Test Item Value Reference Range Interpretation Comments WBC (test code = 1001) 3.3 K/UL RBC (test code = 1002) 3.53 M/UL HEMOGLOBIN (test code = 1003) 8.0 G/DL HEMATOCRIT (test code = 1004) 26.5 % MCV (test code = 1005) 75.1 fL MCH (test code = 1006) 22.7 PG MCHC (test code = 1007) 30.2 G/DL RDW (test code = 1038) 17.1 % NEUTROPHILS (test code = 1008) 85.3 % LYMPHOCYTES (test code = 1010) 12.1 % MONOCYTES (test code = 1011) 1.7 % EOSINOPHILS (test code = 1012) 0.0 % BASOPHILS (test code = 1013) 0.9 % PLATELET COUNT (test code = 1015) 287 K/UL COMMENTS (test code = 1016) (NOTE) CBC W/AUTO [id number] 00:00:00 Test Item Value Reference Range Interpretation Comments WBC (test code = 1001) 3.3 K/UL RBC (test code = 1002) 3.53 M/UL HEMOGLOBIN (test code = 1003) 8.0 G/DL HEMATOCRIT (test code = 1004) 26.5 % MCV (test code = 1005) 75.1 fL MCH (test code = 1006) 22.7 PG MCHC (test code = 1007) 30.2 G/DL RDW (test code = 1038) 17.1 % NEUTROPHILS (test code = 1008) 85.3 % LYMPHOCYTES (test code = 1010) 12.1 % MONOCYTES (test code = 1011) 1.7 % EOSINOPHILS (test code = 1012) 0.0 % BASOPHILS (test code = 1013) 0.9 % PLATELET COUNT (test code = 1015) 287 K/UL COMMENTS (test code = 1016) (NOTE) COMPREHENSIVE METABOLIC [id number] 00:00:00 Test Item Value Reference Range Interpretation Comments GLUCOSE (test code = 2217) 92 MG/DL BUN (test code = 2208) 23 MG/DL CREATININE (test code = 2214) 1.27 MG/DL eGFR AMER. (test code 55 ML/MIN/1.73 = 95877) eGFR NON- AMER. (test 48 ML/MIN/1.73 code = 60709) CALC BUN/CREAT (test code = 18 RATIO 2235) SODIUM (test code = 2231) 137 MEQ/L POTASSIUM (test code = 2228) 4.7 MEQ/L CHLORIDE (test code = 2215) 105 MEQ/L CARBON DIOXIDE (test code = 22 MEQ/L 2205) CALCIUM (test code = 2209) 9.4 MG/DL PROTEIN, TOTAL (test code = 10.1 G/DL 2228) ALBUMIN (test code = 2201) 4.2 G/DL CALC GLOBULIN (test code = 5.9 G/DL 2240) CALC A/G RATIO (test code = 0.7 RATIO 2234) BILIRUBIN, TOTAL (test code = 0.4 MG/DL 2206) ALKALINE PHOSPHATASE (test 102 U/L code = 2204) AST (test code = 2218) 31 U/L ALT (test code = 2219) 23 U/L COMPREHENSIVE METABOLIC [id number] 00:00:00 Test Item Value Reference Range Interpretation Comments GLUCOSE (test code = 2217) 92 MG/DL BUN (test code = 2208) 23 MG/DL CREATININE (test code = 2214) 1.27 MG/DL eGFR AMER. (test code 55 ML/MIN/1.73 = 97562) eGFR NON- AMER. (test 48 ML/MIN/1.73 code = 35239) CALC BUN/CREAT (test code = 18 RATIO 2235) SODIUM (test code = 2231) 137 MEQ/L POTASSIUM (test code = 2228) 4.7 MEQ/L CHLORIDE (test code = 2215) 105 MEQ/L CARBON DIOXIDE (test code = 22 MEQ/L 2205) CALCIUM (test code = 2209) 9.4 MG/DL PROTEIN, TOTAL (test code = 10.1 G/DL 2228) ALBUMIN (test code = 2201) 4.2 G/DL CALC GLOBULIN (test code = 5.9 G/DL 2240) CALC A/G RATIO (test code = 0.7 RATIO 2234) BILIRUBIN, TOTAL (test code = 0.4 MG/DL 2207) ALKALINE PHOSPHATASE (test 102 U/L code = 2204) AST (test code = 2218) 31 U/L ALT (test code = 2219) 23 U/L HEPATITIS C REFLEX [id number] 00:00:00 Test Item Value Reference Range Interpretation Comments HEPATITIS C ANTIBODY (test code NON-REACTIVE = 4675) HEPATITIS C REFLEX [id number] 00:00:00 Test Item Value Reference Range Interpretation Comments HEPATITIS C ANTIBODY (test code NON-REACTIVE = 4675) CBC W/AUTO [id number] 00:00:00 Test Item Value Reference Range Interpretation Comments WBC (test code = 1001) 3.6 K/UL RBC (test code = 1002) 3.40 M/UL HEMOGLOBIN (test code = 1003) 7.8 G/DL HEMATOCRIT (test code = 1004) 25.9 % MCV (test code = 1005) 76.2 fL MCH (test code = 1006) 22.9 PG MCHC (test code = 1007) 30.1 G/DL RDW (test code = 1038) 15.9 % NEUTROPHILS (test code = 1008) 55.1 % LYMPHOCYTES (test code = 1010) 35.5 % MONOCYTES (test code = 1011) 7.7 % EOSINOPHILS (test code = 1012) 1.4 % BASOPHILS (test code = 1013) 0.3 % PLATELET COUNT (test code = 1015) 279 K/UL COMMENTS (test code = 1016) (NOTE) CBC W/AUTO [id number] 00:00:00 Test Item Value Reference Range Interpretation Comments WBC (test code = 1001) 3.6 K/UL RBC (test code = 1002) 3.40 M/UL HEMOGLOBIN (test code = 1003) 7.8 G/DL HEMATOCRIT (test code = 1004) 25.9 % MCV (test code = 1005) 76.2 fL MCH (test code = 1006) 22.9 PG MCHC (test code = 1007) 30.1 G/DL RDW (test code = 1038) 15.9 % NEUTROPHILS (test code = 1008) 55.1 % LYMPHOCYTES (test code = 1010) 35.5 % MONOCYTES (test code = 1011) 7.7 % EOSINOPHILS (test code = 1012) 1.4 % BASOPHILS (test code = 1013) 0.3 % PLATELET COUNT (test code = 1015) 279 K/UL COMMENTS (test code = 1016) (NOTE) CBC W/AUTO [id number] 00:00:00 Test Item Value Reference Range Interpretation Comments WBC (test code = 1001) 3.6 K/UL RBC (test code = 1002) 3.40 M/UL HEMOGLOBIN (test code = 1003) 7.8 G/DL HEMATOCRIT (test code = 1004) 25.9 % MCV (test code = 1005) 76.2 fL MCH (test code = 1006) 22.9 PG MCHC (test code = 1007) 30.1 G/DL RDW (test code = 1038) 15.9 % NEUTROPHILS (test code = 1008) 55.1 % LYMPHOCYTES (test code = 1010) 35.5 % MONOCYTES (test code = 1011) 7.7 % EOSINOPHILS (test code = 1012) 1.4 % BASOPHILS (test code = 1013) 0.3 % PLATELET COUNT (test code = 1015) 279 K/UL COMMENTS (test code = 1016) (NOTE) COMPREHENSIVE METABOLIC [id number] 00:00:00 Test Item Value Reference Range Interpretation Comments GLUCOSE (test code = 2217) 88 MG/DL BUN (test code = 2208) 24 MG/DL CREATININE (test code = 2214) 0.94 MG/DL eGFR AMER. (test code 80 ML/MIN/1.73 = 32221) eGFR NON- AMER. (test 69 ML/MIN/1.73 code = 27258) CALC BUN/CREAT (test code = 26 RATIO 2235) SODIUM (test code = 2231) 142 MEQ/L POTASSIUM (test code = 2228) 4.0 MEQ/L CHLORIDE (test code = 2215) 107 MEQ/L CARBON DIOXIDE (test code = 24 MEQ/L 2206) CALCIUM (test code = 2209) 9.5 MG/DL PROTEIN, TOTAL (test code = 9.9 G/DL 2228) ALBUMIN (test code = 2201) 3.7 G/DL CALC GLOBULIN (test code = 6.2 G/DL 2240) CALC A/G RATIO (test code = 0.6 RATIO 2234) BILIRUBIN, TOTAL (test code = 0.3 MG/DL 2207) ALKALINE PHOSPHATASE (test 89 U/L code = 2204) AST (test code = 2218) 18 U/L ALT (test code = 2219) 10 U/L COMPREHENSIVE METABOLIC [id number] 00:00:00 Test Item Value Reference Range Interpretation Comments GLUCOSE (test code = 2217) 88 MG/DL BUN (test code = 2208) 24 MG/DL CREATININE (test code = 2214) 0.94 MG/DL eGFR AMER. (test code 80 ML/MIN/1.73 = 92711) eGFR NON- AMER. (test 69 ML/MIN/1.73 code = 74903) CALC BUN/CREAT (test code = 26 RATIO 2235) SODIUM (test code = 2231) 142 MEQ/L POTASSIUM (test code = 2228) 4.0 MEQ/L CHLORIDE (test code = 2215) 107 MEQ/L CARBON DIOXIDE (test code = 24 MEQ/L 2205) CALCIUM (test code = 2209) 9.5 MG/DL PROTEIN, TOTAL (test code = 9.9 G/DL 2228) ALBUMIN (test code = 2201) 3.7 G/DL CALC GLOBULIN (test code = 6.2 G/DL 2240) CALC A/G RATIO (test code = 0.6 RATIO 4) BILIRUBIN, TOTAL (test code = 0.3 MG/DL 2206) ALKALINE PHOSPHATASE (test 89 U/L code = 2204) AST (test code = 2218) 18 U/L ALT (test code = 2219) 10 U/L LIPID [id number] 00:00:00 Test Item Value Reference Range Interpretation Comments CHOLESTEROL (test code = 2210) 211 MG/DL TRIGLYCERIDES (test code = 2232) 52 MG/DL HDL CHOLESTEROL (test code = 2220) 90 MG/DL CALC LDL CHOL (test code = 2237) 111 MG/DL RISK RATIO LDL/HDL (test code = 1.23 RATIO 2238) LIPID [id number] 00:00:00 Test Item Value Reference Range Interpretation Comments CHOLESTEROL (test code = 2210) 211 MG/DL TRIGLYCERIDES (test code = 2232) 52 MG/DL HDL CHOLESTEROL (test code = 2220) 90 MG/DL CALC LDL CHOL (test code = 2237) 111 MG/DL RISK RATIO LDL/HDL (test code = 1.23 RATIO 2238) CBC W/AUTO [id number] 00:00:00 Test Item Value Reference Range Interpretation Comments WBC (test code = 1001) 3.6 K/UL RBC (test code = 1002) 3.40 M/UL HEMOGLOBIN (test code = 1003) 7.8 G/DL HEMATOCRIT (test code = 1004) 25.9 % MCV (test code = 1005) 76.2 fL MCH (test code = 1006) 22.9 PG MCHC (test code = 1007) 30.1 G/DL RDW (test code = 1038) 15.9 % NEUTROPHILS (test code = 1008) 55.1 % LYMPHOCYTES (test code = 1010) 35.5 % MONOCYTES (test code = 1011) 7.7 % EOSINOPHILS (test code = 1012) 1.4 % BASOPHILS (test code = 1013) 0.3 % PLATELET COUNT (test code = 1015) 279 K/UL COMMENTS (test code = 1016) (NOTE) CBC W/AUTO [id number] 00:00:00 Test Item Value Reference Range Interpretation Comments WBC (test code = 1001) 3.6 K/UL RBC (test code = 1002) 3.40 M/UL HEMOGLOBIN (test code = 1003) 7.8 G/DL HEMATOCRIT (test code = 1004) 25.9 % MCV (test code = 1005) 76.2 fL MCH (test code = 1006) 22.9 PG MCHC (test code = 1007) 30.1 G/DL RDW (test code = 1038) 15.9 % NEUTROPHILS (test code = 1008) 55.1 % LYMPHOCYTES (test code = 1010) 35.5 % MONOCYTES (test code = 1011) 7.7 % EOSINOPHILS (test code = 1012) 1.4 % BASOPHILS (test code = 1013) 0.3 % PLATELET COUNT (test code = 1015) 279 K/UL COMMENTS (test code = 1016) (NOTE) COMPREHENSIVE METABOLIC [id number] 00:00:00 Test Item Value Reference Range Interpretation Comments GLUCOSE (test code = 2217) 88 MG/DL BUN (test code = 2208) 24 MG/DL CREATININE (test code = 2214) 0.94 MG/DL eGFR AMER. (test code 80 ML/MIN/1.73 = 08146) eGFR NON- AMER. (test 69 ML/MIN/1.73 code = 50446) CALC BUN/CREAT (test code = 26 RATIO 2235) SODIUM (test code = 2231) 142 MEQ/L POTASSIUM (test code = 2228) 4.0 MEQ/L CHLORIDE (test code = 2215) 107 MEQ/L CARBON DIOXIDE (test code = 24 MEQ/L 220) CALCIUM (test code = 2209) 9.5 MG/DL PROTEIN, TOTAL (test code = 9.9 G/DL 2228) ALBUMIN (test code = 2201) 3.7 G/DL CALC GLOBULIN (test code = 6.2 G/DL 2240) CALC A/G RATIO (test code = 0.6 RATIO 2233) BILIRUBIN, TOTAL (test code = 0.3 MG/DL 2206) ALKALINE PHOSPHATASE (test 89 U/L code = 2204) AST (test code = 2218) 18 U/L ALT (test code = 2219) 10 U/L LIPID [id number] 00:00:00 Test Item Value Reference Range Interpretation Comments CHOLESTEROL (test code = 2210) 211 MG/DL TRIGLYCERIDES (test code = 2232) 52 MG/DL HDL CHOLESTEROL (test code = 2220) 90 MG/DL CALC LDL CHOL (test code = 2237) 111 MG/DL RISK RATIO LDL/HDL (test code = 1.23 RATIO 2238) CBC W/AUTO [id number] 00:00:00 Test Item Value Reference Range Interpretation Comments WBC (test code = 1001) 3.6 K/UL RBC (test code = 1002) 3.40 M/UL HEMOGLOBIN (test code = 1003) 7.8 G/DL HEMATOCRIT (test code = 1004) 25.9 % MCV (test code = 1005) 76.2 fL MCH (test code = 1006) 22.9 PG MCHC (test code = 1007) 30.1 G/DL RDW (test code = 1038) 15.9 % NEUTROPHILS (test code = 1008) 55.1 % LYMPHOCYTES (test code = 1010) 35.5 % MONOCYTES (test code = 1011) 7.7 % EOSINOPHILS (test code = 1012) 1.4 % BASOPHILS (test code = 1013) 0.3 % PLATELET COUNT (test code = 1015) 279 K/UL COMMENTS (test code = 1016) (NOTE) CBC W/AUTO [id number] 00:00:00 Test Item Value Reference Range Interpretation Comments WBC (test code = 1001) 3.6 K/UL RBC (test code = 1002) 3.40 M/UL HEMOGLOBIN (test code = 1003) 7.8 G/DL HEMATOCRIT (test code = 1004) 25.9 % MCV (test code = 1005) 76.2 fL MCH (test code = 1006) 22.9 PG MCHC (test code = 1007) 30.1 G/DL RDW (test code = 1038) 15.9 % NEUTROPHILS (test code = 1008) 55.1 % LYMPHOCYTES (test code = 1010) 35.5 % MONOCYTES (test code = 1011) 7.7 % EOSINOPHILS (test code = 1012) 1.4 % BASOPHILS (test code = 1013) 0.3 % PLATELET COUNT (test code = 1015) 279 K/UL COMMENTS (test code = 1016) (NOTE) CBC W/AUTO [id number] 00:00:00 Test Item Value Reference Range Interpretation Comments WBC (test code = 1001) 3.6 K/UL RBC (test code = 1002) 3.40 M/UL HEMOGLOBIN (test code = 1003) 7.8 G/DL HEMATOCRIT (test code = 1004) 25.9 % MCV (test code = 1005) 76.2 fL MCH (test code = 1006) 22.9 PG MCHC (test code = 1007) 30.1 G/DL RDW (test code = 1038) 15.9 % NEUTROPHILS (test code = 1008) 55.1 % LYMPHOCYTES (test code = 1010) 35.5 % MONOCYTES (test code = 1011) 7.7 % EOSINOPHILS (test code = 1012) 1.4 % BASOPHILS (test code = 1013) 0.3 % PLATELET COUNT (test code = 1015) 279 K/UL COMMENTS (test code = 1016) (NOTE) COMPREHENSIVE METABOLIC [id number] 00:00:00 Test Item Value Reference Range Interpretation Comments GLUCOSE (test code = 2217) 88 MG/DL BUN (test code = 2208) 24 MG/DL CREATININE (test code = 2214) 0.94 MG/DL eGFR AMER. (test code 80 ML/MIN/1.73 = 51935) eGFR NON- AMER. (test 69 ML/MIN/1.73 code = 71437) CALC BUN/CREAT (test code = 26 RATIO 2235) SODIUM (test code = 2231) 142 MEQ/L POTASSIUM (test code = 2228) 4.0 MEQ/L CHLORIDE (test code = 2215) 107 MEQ/L CARBON DIOXIDE (test code = 24 MEQ/L 220) CALCIUM (test code = 2209) 9.5 MG/DL PROTEIN, TOTAL (test code = 9.9 G/DL 2228) ALBUMIN (test code = 2201) 3.7 G/DL CALC GLOBULIN (test code = 6.2 G/DL 2240) CALC A/G RATIO (test code = 0.6 RATIO 2234) BILIRUBIN, TOTAL (test code = 0.3 MG/DL 2206) ALKALINE PHOSPHATASE (test 89 U/L code = 2204) AST (test code = 2218) 18 U/L ALT (test code = 2219) 10 U/L COMPREHENSIVE METABOLIC [id number] 00:00:00 Test Item Value Reference Range Interpretation Comments GLUCOSE (test code = 2217) 88 MG/DL BUN (test code = 2208) 24 MG/DL CREATININE (test code = 2214) 0.94 MG/DL eGFR AMER. (test code 80 ML/MIN/1.73 = 45313) eGFR NON- AMER. (test 69 ML/MIN/1.73 code = 80406) CALC BUN/CREAT (test code = 26 RATIO 2235) SODIUM (test code = 2231) 142 MEQ/L POTASSIUM (test code = 2228) 4.0 MEQ/L CHLORIDE (test code = 2215) 107 MEQ/L CARBON DIOXIDE (test code = 24 MEQ/L 220) CALCIUM (test code = 2209) 9.5 MG/DL PROTEIN, TOTAL (test code = 9.9 G/DL 2228) ALBUMIN (test code = 2201) 3.7 G/DL CALC GLOBULIN (test code = 6.2 G/DL 2240) CALC A/G RATIO (test code = 0.6 RATIO 2234) BILIRUBIN, TOTAL (test code = 0.3 MG/DL 2206) ALKALINE PHOSPHATASE (test 89 U/L code = 2204) AST (test code = 2218) 18 U/L ALT (test code = 2219) 10 U/L LIPID [id number] 00:00:00 Test Item Value Reference Range Interpretation Comments CHOLESTEROL (test code = 2210) 211 MG/DL TRIGLYCERIDES (test code = 2232) 52 MG/DL HDL CHOLESTEROL (test code = 2220) 90 MG/DL CALC LDL CHOL (test code = 2237) 111 MG/DL RISK RATIO LDL/HDL (test code = 1.23 RATIO 2238) LIPID [id number] 00:00:00 Test Item Value Reference Range Interpretation Comments CHOLESTEROL (test code = 2210) 211 MG/DL TRIGLYCERIDES (test code = 2232) 52 MG/DL HDL CHOLESTEROL (test code = 2220) 90 MG/DL CALC LDL CHOL (test code = 2237) 111 MG/DL RISK RATIO LDL/HDL (test code = 1.23 RATIO 2238) URIC [id number] 00:00:00 Test Item Value Reference Range Interpretation Comments URIC ACID (test code = 2233) 7.5 MG/DL URIC [id number] 00:00:00 Test Item Value Reference Range Interpretation Comments URIC ACID (test code = 2233) 7.5 MG/DL VITAMIN D, 25 [id number] 00:00:00 Test Item Value Reference Range Interpretation Comments VITAMIN D, 25 OH (test code = 4958) 36 NG/ML VITAMIN D, 25 [id number] 00:00:00 Test Item Value Reference Range Interpretation Comments VITAMIN D, 25 OH (test code = 4958) 36 NG/ML URIC [id number] 00:00:00 Test Item Value Reference Range Interpretation Comments URIC ACID (test code = 2233) 7.5 MG/DL VITAMIN D, 25 [id number] 00:00:00 Test Item Value Reference Range Interpretation Comments VITAMIN D, 25 OH (test code = 4958) 36 NG/ML URIC [id number] 00:00:00 Test Item Value Reference Range Interpretation Comments URIC ACID (test code = 2233) 7.5 MG/DL URIC [id number] 00:00:00 Test Item Value Reference Range Interpretation Comments URIC ACID (test code = 2233) 7.5 MG/DL VITAMIN D, 25 [id number] 00:00:00 Test Item Value Reference Range Interpretation Comments VITAMIN D, 25 OH (test code = 4958) 36 NG/ML VITAMIN D, 25 [id number] 00:00:00 Test Item Value Reference Range Interpretation Comments VITAMIN D, 25 OH (test code = 4958) 36 NG/ML C-REACTIVE [id number] 00:00:00 Test Item Value Reference Range Interpretation Comments C-REACTIVE PROTEIN (test code = 0.3 MG/DL 3513) C-REACTIVE [id number] 00:00:00 Test Item Value Reference Range Interpretation Comments C-REACTIVE PROTEIN (test code = 0.3 MG/DL 3513) RHEUMATOID FACTOR, [id number] 00:00:00 Test Item Value Reference Range Interpretation Comments RHEUMATOID FACTOR, QUANT (test code <10 IU/ML = 3502) RHEUMATOID FACTOR, [id number] 00:00:00 Test Item Value Reference Range Interpretation Comments RHEUMATOID FACTOR, QUANT (test code <10 IU/ML = 3502) RHEUMATOID FACTOR, [id number] 00:00:00 Test Item Value Reference Range Interpretation Comments RHEUMATOID FACTOR, QUANT (test code <10 IU/ML = 3502) SEDIMENTATION [id number] 00:00:00 Test Item Value Reference Range Interpretation Comments SEDIMENTATION RATE (test code = 117 MM/HOUR 1017) SEDIMENTATION [id number] 00:00:00 Test Item Value Reference Range Interpretation Comments SEDIMENTATION RATE (test code = 117 MM/HOUR 1017) C-REACTIVE [id number] 00:00:00 Test Item Value Reference Range Interpretation Comments C-REACTIVE PROTEIN (test code = 0.3 MG/DL 3513) RHEUMATOID FACTOR, [id number] 00:00:00 Test Item Value Reference Range Interpretation Comments RHEUMATOID FACTOR, QUANT (test code <10 IU/ML = 3502) RHEUMATOID FACTOR, [id number] 00:00:00 Test Item Value Reference Range Interpretation Comments RHEUMATOID FACTOR, QUANT (test code <10 IU/ML = 3502) SEDIMENTATION [id number] 00:00:00 Test Item Value Reference Range Interpretation Comments SEDIMENTATION RATE (test code = 117 MM/HOUR 1017) C-REACTIVE [id number] 00:00:00 Test Item Value Reference Range Interpretation Comments C-REACTIVE PROTEIN (test code = 0.3 MG/DL 3513) C-REACTIVE [id number] 00:00:00 Test Item Value Reference Range Interpretation Comments C-REACTIVE PROTEIN (test code = 0.3 MG/DL 3513) RHEUMATOID FACTOR, [id number] 00:00:00 Test Item Value Reference Range Interpretation Comments RHEUMATOID FACTOR, QUANT (test code <10 IU/ML = 3502) RHEUMATOID FACTOR, [id number] 00:00:00 Test Item Value Reference Range Interpretation Comments RHEUMATOID FACTOR, QUANT (test code <10 IU/ML = 3502) RHEUMATOID FACTOR, [id number] 00:00:00 Test Item Value Reference Range Interpretation Comments RHEUMATOID FACTOR, QUANT (test code <10 IU/ML = 3502) SEDIMENTATION [id number] 00:00:00 Test Item Value Reference Range Interpretation Comments SEDIMENTATION RATE (test code = 117 MM/HOUR 1017) SEDIMENTATION [id number] 00:00:00 Test Item Value Reference Range Interpretation Comments SEDIMENTATION RATE (test code = 117 MM/HOUR 1017)
--- NOTE | 2022-02-13 13:13 | RAD REPORT ---
EXAM DESCRIPTION: RAD - Chest Single View - 02/13/2022 12:55 pm CLINICAL HISTORY: COUGH COMPARISON: Chest Single View dated 10/23/2021; Chest Pa And Lat (2 Views) dated 02/06/2021; Chest Si ngle View dated 02/27/2020; Chest Single View dated 07/25/2018; Chest Abd Pelvis Wo Con dated 10/23/2021 FINDINGS: Lines: None. Lungs: No evidence of edema or pneumonia. Chronic coarsened interstitium. Pleural: No significant pleural effusions or pneumothorax. Cardiac: The heart size is within normal limits. Mediastinum: Within normal limits. Bones: No acute fractures. Other: None IMPRESSION: Chronically coarsened interstitium without evidence of a new superimposed acute process.
[2022-02-13 13:20] LABS: SARS-COV-2 RT PCR POSITIVE (NEGATIVE)
--- NOTE | 2022-02-13 13:23 | ER ---
Nurse's Notes [facility] Name: Charito Michael Age: 56 yrs Sex: Female : 1965 Arrival Date: 02/13/2022 Time: 11:16 Bed IW1 Private MD: Diagnosis: Coronavirus infection, unspecified Presentation: 02/13 12:50 Chief complaint: Patient states: Cough, congestion x 1 week. Coronavirus screen: jl7 Vaccine status: Patient reports being unvaccinated. Client presents with at least one sign or symptom that may indicate coronavirus-19. Ebola Screen: No symptoms or risks identified at this time. Initial Sepsis Screen: Does the patient meet any 2 criteria? No. Patient's initial sepsis screen is negative. Does the patient have a suspected source of infection? No. Patient's initial sepsis screen is negative. Risk Assessment: Do you want to hurt yourself or someone else? Patient reports no desire to harm self or others. Onset of symptoms is unknown. 12:50 Method Of Arrival: Ambulatory jl7 12:50 Acuity: GIULIANO 3 jl7 Triage Assessment: 12:51 General: Appears in no apparent distress. uncomfortable, Behavior is calm, cooperative, jl7 appropriate for age. Pain: Complains of pain in back and chest Pain currently is 6 out of 10 on a pain scale. Historical: - Allergies: 12:51 NKA; jl7 - Home Meds: 12:51 abacavir-lamivudine 600-300 mg Oral tab [Active]; albuterol sulfate 90 mcg/actuation jl7 Inhl aebs 2 puffs every 4-6 hours [Active]; allopurinol 100 mg Oral tab [Active]; amlodipine 10 mg tab [Active]; citalopram 20 mg tab [Active]; cyclobenzaprine 5 mg Oral tab [Active]; losartan 100 mg Oral tab [Active]; - PMHx: 12:51 Back pain; CHF; Chronic pain; COPD; HIV; Hypercholesterolemia; Hypertension; seasonal jl7 allergies; - PSHx: 12:51 Total abdominal hysterectomy; jl7 - Immunization history:: Client reports having NOT received the Covid vaccine. - Social history:: Smoking status: Patient denies any tobacco usage or history of. Screenin:40 [facility] ED Fall Risk Assessment (Adult) History of falling in the last 3 months, ap3 including since admission Yes- single mechanical fall (1 pt). Abuse screen: Denies threats or abuse. Nutritional screening: No deficits noted. Tuberculosis screening: No symptoms or risk factors identified. Vital Signs: 12:50 BP 138 / 93; Pulse 84; Resp 17; Temp 98.1; Pulse Ox 100% on R/A; Weight 47.63 kg; 7 Height 5 ft. 3 in. (160.02 cm); Pain 6/10; 12:50 Body Mass Index 18.60 (47.63 kg, 160.02 cm) [facility] ED Course: 11:16 Patient arrived in ED. am2 11:31 [facility]htar [facility] 7 11:31 Yoni Duong MD is Attending Physician. [facility] 12:51 Triage completed. [facility] 12:51 Arm band placed on right wrist. 7 12:57 XRAY Chest (1 view) In Process Unspecified. EDMS 13:40 Patient has correct armband on for positive identification. ap3 13:40 No provider procedures requiring assistance completed. Patient did not have IV access ap3 during this emergency room visit. Administered Medications: No medications were administered Medication: 13:40 VIS not applicable for this client. ap3 Outcome: 13:22 Discharge ordered by . [facility] 13:40 Discharged to home ap3 13:40 Condition: good 13:40 Discharge instructions given to patient, Instructed on discharge instructions, follow up and referral plans. medication usage, Demonstrated understanding of instructions, follow-up care, medications, Prescriptions given X 2. 13:40 Patient left the ED. ap3 Signatures: Dispatcher [employer] EDXiang Tiwari RN RN jl7 Chichi Andrade Amanda, RN RN ap3 Maryellen Akhtar FNP FNP [facility]
--- NOTE | 2022-02-13 13:23 | EDPHYS ---
Physician Documentation [facility] Name: Charito Michael Age: 56 yrs Sex: Female : 1965 Arrival Date: 02/13/2022 Time: 11:16 Bed IW1 Private MD: ED Physician Yoni Duong HPI: 02/13 12:55 This 56 yrs old Black Female presents to ER via Ambulatory with complaints of Cough, jh7 Chest Congestion. 12:55 The patient or guardian reports cough, that is intermittent. Onset: The jh7 symptoms/episode began/occurred 1 week(s) ago. Associated signs and symptoms: Pertinent positives: congestion, Pertinent negatives: chest pain, fever, vomiting. Historical: - Allergies: 12:51 NKA; jl7 - Home Meds: 12:51 abacavir-lamivudine 600-300 mg Oral tab [Active]; albuterol sulfate 90 mcg/actuation jl7 Inhl aebs 2 puffs every 4-6 hours [Active]; allopurinol 100 mg Oral tab [Active]; amlodipine 10 mg tab [Active]; citalopram 20 mg tab [Active]; cyclobenzaprine 5 mg Oral tab [Active]; losartan 100 mg Oral tab [Active]; - PMHx: 12:51 Back pain; CHF; Chronic pain; COPD; HIV; Hypercholesterolemia; Hypertension; seasonal jl7 allergies; - PSHx: 12:51 Total abdominal hysterectomy; jl7 - Immunization history:: Client reports having NOT received the Covid vaccine. - Social history:: Smoking status: Patient denies any tobacco usage or history of. ROS: 12:55 Constitutional: Negative for fever, chills, and weight loss, Eyes: Negative for injury, jh7 pain, redness, and discharge, Cardiovascular: Negative for chest pain, palpitations, and edema, Abdomen/GI: Negative for abdominal pain, nausea, vomiting, diarrhea, and constipation, Back: Negative for injury and pain, MS/Extremity: Negative for injury and deformity, Skin: Negative for injury, rash, and discoloration, Neuro: Negative for headache, weakness, numbness, tingling, and seizure. 12:55 ENT: Positive for sinus congestion, Negative for sinus congestion. 12:55 Respiratory: Positive for cough, Negative for shortness of breath, wheezing. 12:55 All other systems are negative. Exam: 12:55 Constitutional: This is a well developed, well nourished patient who is awake, alert, jh7 and in no acute distress. Head/Face: Normocephalic, atraumatic. Eyes: Pupils equal round and reactive to light, extra-ocular motions intact. Lids and lashes normal. Conjunctiva and sclera are non-icteric and not injected. Cornea within normal limits. Periorbital areas with no swelling, redness, or edema. Neck: Trachea midline, no thyromegaly or masses palpated, and no cervical lymphadenopathy. Supple, full range of motion without nuchal rigidity, or vertebral point tenderness. No Meningismus. Cardiovascular: Regular rate and rhythm with a normal S1 and S2. No gallops, murmurs, or rubs. Normal PMI, no JVD. No pulse deficits. Respiratory: Lungs have equal breath sounds bilaterally, clear to auscultation and percussion. No rales, rhonchi or wheezes noted. No increased work of breathing, no retractions or nasal flaring. Abdomen/GI: Soft, non-tender, with normal bowel sounds. No distension or tympany. No guarding or rebound. No evidence of tenderness throughout. Skin: Warm, dry with normal turgor. Normal color with no rashes, no lesions, and no evidence of cellulitis. MS/ Extremity: Pulses equal, no cyanosis. Neurovascular intact. Full, normal range of motion. Neuro: Awake and alert, GCS 15, oriented to person, place, time, and situation. Motor strength 5/5 in all extremities. Sensory grossly intact. Normal gait. 12:55 ENT: Posterior pharynx: post nasal drainage. Vital Signs: 12:50 BP 138 / 93; Pulse 84; Resp 17; Temp 98.1; Pulse Ox 100% on R/A; Weight 47.63 kg; 7 Height 5 ft. 3 in. (160.02 cm); Pain 6/10; 12:50 Body Mass Index 18.60 (47.63 kg, 160.02 cm) [facility] MDM: 11:31 Patient medically screened. [facility] 13:25 Differential Diagnosis: Bronchitis Influenza Upper Respiratory Infection Sinusitis [facility] Viral Syndrome Pneumonia Other COVID. Data reviewed: vital signs, nurses notes, radiologic studies, plain films. Data interpreted: Pulse oximetry: is 100 %. Interpretation: normal. Counseling: I had a detailed discussion with the patient and/or guardian regarding: the historical points, exam findings, and any diagnostic results supporting the discharge/admit diagnosis, to return to the emergency department if symptoms worsen or persist or if there are any questions or concerns that arise at home. ED course: Antibiotics not prescribed due to negative chest x-ray and positive COVID test. The patient remained stable throughout the ER visit.. 02/13 11:55 Order name: COVID-19/FLU A+B; Complete Time: 13:21 [facility] 02/13 11:55 Order name: XRAY Chest (1 view); Complete Time: 13:21 [facility] Administered Medications: No medications were administered Disposition: 15:18 Co-signature as Attending Physician, Yoni Duong MD I agree with the assessment and rt plan of care. Disposition Summary: 02/13/22 13:22 Discharge Ordered Location: Home [facility] Problem: new [facility] Symptoms: are unchanged [facility] Condition: Stable [facility] Diagnosis - Coronavirus infection, unspecified [facility] Followup: [facility] - With: Private Physician - When: 2 - 3 days - Reason: Recheck today's complaints Discharge Instructions: - Discharge Summary Sheet [facility] - COVID-19 [facility] - COVID-19 Frequently Asked Questions [facility] - 10 Things You Can Do to Manage Your COVID-19 Symptoms at Home - [place] [address] Forms: - Medication Reconciliation Form [facility] - Thank You Letter [facility] Prescriptions: - ProAir HFA 90 mcg/actuation Inhalation HFA aerosol inhaler - inhale 2 puff by INHALATION route every 4-6 hours As needed; 1 Inhaler; [facility] Refills: 0, Product Selection Permitted - Tessalon Perles 100 mg Oral Capsule - take 1 capsule by ORAL route every 8 hours As needed; 15 capsule; Refills: 0, [facility] Product Selection Permitted Signatures: Dispatcher [employer] Xiang Cr RN RN anibal7 Maryellen Akhtar FNP FNP [facility] Yoni Duong MD MD rt
[2022-02-13 13:48] VITALS: BP 138/93; TEMP 98.1; O2SAT 100
== END 2022-02-13 13:40 | disposition home or self-care (01) ==
LOC: ER 11:15
DX: U07.1 COVID-19 (principal); I50.9 Heart failure, unspecified; I10 Essential (primary) hypertension; Z21 Asymptomatic human immunodeficiency virus [HIV] infection status
CPT/HCPCS: 0240U; 71045; 99283

== ENCOUNTER 2022-03-08 10:22 | Emergency (ER) | payer OTHER ==
--- OUTSIDE RECORDS SUMMARY | 2022-03-08 10:38 | XMS REPORT | Continuity of Care Document ---
:1965 Author Organization [facility] t Address [address] [place] [address] Care Team Providers Name Role Phone DELFINO Schumacher [facility] Primary Care P hysician Unavailable LEE HENDERSON Attending Clinician Unavailable Oleg Shoemaker RN, Jeanine Jones Attending Clinician Unavailable Osman Ware RN Attending Clinician Unavailable Doctor Unassigned, Chicken Attending Clinician Unavailable Kasandra Cha Attending Clinician JENNIFER Attending Clinician Unavailable Dean_Robert Attending Clinician Unavailable Pgy2 Attending Clinician Unavailable Apolinar Weber MD Attending Clinician APOLINAR WEBER Attending Clinician Unavailable Enedina Mccarty MD Attending Clinician Lj Paredes RN Attending Clinician Unavailable BILLY VALERIO Attending Clinician Unavailable Toby Donohue MD Attending Clinician Delores Garcia MD, Tressa Schwartz Attending Clinician Billy Valerio MD Attending Clinician Evette Dunn MA Attending Clinician Unavailable KENNEDI BLUE Attending Clinician Unavailable Kennedi Blue NP Attending Clinician Mikael Quiroz Attending Clinician LJ LIANG Attending Clinician Unavailable Lj Mcguire Attending Clinician MARGARET NUNEZ Attending Clinician Unavailable Margaret Nunez DO Attending Clinician Alexandra CENTENO, [place] K.H. Attending Clinician BONNY MORRIS.H. Attending Clinician Unavailable Terri Harris Attending Clinician Francis PAC, Dawn S Attending Clinician Tumgiovanni_A Attending Clinician Unavailable Chantelle WALKER, Josse F Attending Clinician JOSSE JUÁREZ Attending Clinician Unavailable JENNIFER Admitting Clinician Unavailable Av Admitting Clinician Unavailable Tressa ESTRELLA JR Admitting Clinician Unavailable Delores Garcia MD, Tressa Schwartz Admitting Clinician KENNEDI BLUE Admitting Clinician Unavailable Sammi Admitting Clinician Unavailable Payers Payer Name Policy Type Policy Number Effective Date Expiration Date [facility] [id number] 2016 MEDICAID 00:00:00 [facility] [id number] 2020 (MEDICARE 00:00:00 REPLACEMENT HMO) Problems Condition Condition Condition Status Onset Resolution Last Treating Co mments Source Name Details Category Date Date Treatment Clinician Date LGSIL Pap LGSIL Pap Disease Active Uni vers smear of smear of 5-17 ity of vagina vagina 00:00: [address] Murmur, Murmur, Disease Active Univers cardiac cardiac 4-30 ity of 00:00: [address] Bacteremia Bacteremia Disease Active U nivers 4-29 ity of 00:00: [address] Medically Medically Disease Active Uni vers noncomplia noncomplia 7-23 it y of nt nt 00:00: [address] Thrush Thrush Disease Active Univers 7-23 ity of 00:00: [address] Obesity Obesity Disease Active Univers (BMI (BMI 4-20 ity of 30-39.9) 30-39.9) 00:00: [address] Genital Genital Disease Active Univers warts warts 7-15 ity of 00:00: [place] [address] Medical [place] H/O: H/O: Disease Active Univers hysterecto hysterecto 7-15 it y of my my 00:00: [address] 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 1-19 it y of ciency ciency 00:00: [place] virus virus 00 Medical infection) infection) Br [place] Allergies, Adverse Reactions, Alerts Allergy Allergy Status Severity Reaction(s) Onset Inactive Treating Comm ents Source Name Type Date Date Clinician NO KNOWN Drug Active Univers ALLERGIE Class ity of S [facility] Social History Social Habit Start Date Stop Date Quantity Comments Source Exposure to 2021-07-08 2021-07-18 Not sure [facility] SARS-CoV-2 00:00:00 15:42:00 [facility] (event) [place] Alcohol intake 2021-07-18 2021-07-18 Current University 00:00:00 00:00:00 non-drinker of [facility] alcohol (finding) [place] Tobacco use and 2020-07-26 2020-07-26 Smokeless tobacco Un iversity of exposure 00:00:00 00:00:00 non-user [facility] Sex Ass[birth year] At [birth year] Universit y of 00:00:00 00:00:00 [facility] Smoking Status Start Date Stop Date Source Never smoked tobacco [facility] Medications Ordered Filled Start Stop Current Ordering Indication Dosage Frequency Signature Comments Components Source Medication Medication Date Date Medication? Clinician (SIG) Name Name APPLY No 20 OINTMENT 3 1-18 TO 4 TIMES 00:00: PER DAY TO 00 AFFECTED AREA FOR 14 DAYS TAKE No 100 CAPSULE BY 1-03 MOUTH EVERY 00:00: 8 HOURS 00 NEEDED FOR COUGH TAKE 2021-02 No TABLET 2-14 DAILY. 00:00: 00 TAKE 2021-02 No TABLET AT 2-14 BEDTIME. 00:00: 00 APPLY TO 2021-02 No AFFECTED 2-14 AREA ON 00:00: SKIN TWICE 00 A DAY FOR 5 DAYS FLOVENT HFA 2021-02 No 220MCG/A 2-14 INH 00:00: 00 ATORVASTATI 2021-02 No N CALCIUM 2-14 40 MG TABS 00:00: 00 CYCLOBENZAP 2021-02 No RINE 2-14 HYDROCHLORI 00:00: DE 5 MG 00 TABS TIZANIDINE 2021-02 No HYDROCHLORI 2-14 DE 4MG TAB 00:00: 00 LOSARTAN 2021-02 No POTASSIUM/H 2-14 YDROCHLOROT 00:00: HIAZ YASMIN 00 100-12.5 MG TABS FLUCONAZOLE 2021-02 No 150MG TAB 2-14 00:00: 00 AMOXICILLIN 2021-02 No 875 MG TABS 2-14 00:00: 00 TRAZODONE 2021-02 No HYDROCHLORI 2-14 DE 50 MG 00:00: TABS 00 VANCOMYCIN 2021-02 No HYDROCHLORI 2-14 DE 250 MG 00:00: CAPS 00 Dose 2021-02 No Unknown 2-14 00:00: 00 Dose 2021-02 No Unknown 2-14 00:00: 00 Dose 2021-02 No Unknown 2-14 00:00: 00 Dose 2021-02 No Unknown 2-14 00:00: 00 TRAMADOL 2021-02 No HCL 50 MG 2-14 TABS 00:00: 00 IBUPROFEN 2021-02 No 400MG TAB 2-14 00:00: 00 TAKE 1 2021-02 No TABLET BY 2-14 MOUTH TWICE 00:00: A DAY FOR 7 00 DAYS TAKE 1 2021-02 No TABLET BY 2-14 MOUTH ONCE 00:00: DAILY - 00 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 Dose 2021-02 No Unknown 2-14 00:00: 00 Dose 2021-02 No Unknown 2-14 00:00: 00 Dose 2021-02 No Unknown 2-14 00:00: 00 MIRTAZAPINE 2021-02 No 15MG TAB 2-14 00:00: 00 Dose 2021-02 No Unknown 2-14 00:00: 00 Dose 2021-02 No Unknown 2-14 00:00: 00 Dose 2021-02 No Unknown 2-14 00:00: 00 Dose 2021-02 No Unknown 2-14 00:00: 00 Dose 2021-02 No Unknown 2-14 00:00: 00 NYSTATIN 2021-02 No [id number] ROOPA 2-14 00:00: 00 VALACYCLOVI 2021-02 No R HCL 1GM 2-14 TAB 00:00: 00 Dose 2021-02 No Unknown 2-14 00:00: 00 TRIAMCINOLO 2021-02 No NE 2-14 ACETONIDE 00:00: 0.1% CRE 00 CITALOPRAM 2021-02 No HYDROBROMID 2-14 E 20MG TAB 00:00: 00 Dose 2021-02 No 300 Unknown 2-14 00:00: 00 Dose 2021-02 No Unknown 2-14 00:00: 00 Dose 2021-02 No Unknown 2-14 00:00: 00 Dose 2021-02 No 400 Unknown 2-14 00:00: 00 Dose 2021-02 No 600 Unknown 2-14 00:00: 00 Dose 2021-02 No Unknown 2-14 00:00: 00 Dose 2021-02 No Unknown 2-14 00:00: 00 Dose 2021-02 No Unknown 2-14 00:00: 00 Dose 2021-02 No 15 Unknown 2-14 00:00: 00 Dose 2021-02 No Unknown 2-14 00:00: 00 Dose 2021-02 No 250 Unknown 2-14 00:00: 00 Dose 2021-02 No Unknown 2-14 00:00: 00 Dose 2021-02 No Unknown 2-14 00:00: 00 Dose 2021-02 No Unknown 2-14 00:00: 00 Dose 2021-02 No Unknown 2-14 00:00: 00 Dose 2021-02 No 20 Unknown 2-14 00:00: 00 Dose 2021-02 No Unknown 2-14 00:00: 00 Dose 2021-02 No 800 Unknown 2-14 00:00: 00 Dose 2021-02 No Unknown 2-14 00:00: 00 Dose 2021-02 No 150 Unknown 2-14 00:00: 00 Dose 2021-02 No 150 Unknown 2-14 00:00: 00 TAKE 2021-02 No 50unit TABLET AT 2-09 BEDTIME 00:00: NEEDED. 00 FLUTICASONE 2021-02 No 50 PROPIONATE 2-09 50 MCG/ACT 00:00: SUSP 00 TAKE 2021-02 No 600 TABLET BID 2-09 NEEDED 00:00: 00 ALBUTEROL 2021-02 No SULFATE HFA 2-09 108 (90 00:00: Base) 00 MCG/ACT AERS AMLODIPINE 2022-0 No BESYLATE 8-18 10MG TAB 00:00: 00 AMLODIPINE 2022-0 No BESYLATE 8-18 10MG TAB 00:00: 00 AMLODIPINE 2022-0 No BESYLATE 8-18 10MG TAB 00:00: 00 TAKE BY 2022-0 No MOUTH 6 7-20 MILLILITERS 00:00: 4 TIMES A 00 DAY FOR 14 DAYS Dose 2022-0 No Unknown 7-20 00:00: 00 TAKE BY 2022-0 No MOUTH 6 7-20 MILLILITERS 00:00: 4 TIMES A 00 DAY FOR 14 DAYS FLUTICASONE 2022-0 No PROPIONATE 7-20 50MCG RX 00:00: SPR 00 TAKE BY 2022-0 No MOUTH 6 7-20 MILLILITERS 00:00: 4 TIMES A 00 DAY FOR 14 DAYS Dose 2022-0 No Unknown 7-20 00:00: 00 losartan 2022-0 No 1mg 100 [...] Dose 2022-0 No Unknown 6-27 00:00: 00 TAKE 1 2022-0 No TABLET 6-27 DAILY. 00:00: 00 losartan 2-0 No 1mg 100 6-27 mg-hydrochl 00:00: orothiazide 00 12.5 mg tablet amlodipine 2-0 No 1mg 10 mg 6-27 tablet 00:00: 00 Dose 2022-0 No Unknown 6-27 00:00: 00 Dose 2022-0 No Unknown 6-27 00:00: 00 Dose 2022-0 No Unknown 6-27 00:00: 00 fluticasone 2022-0 No 1mcg/ac propionate 6- tuation 50 00:00: mcg/actuati 00 on nasal spray,suspe nsion &lt 2022-0 No 6-27 00:00: 00 &lt 2022-0 No 6-27 00:00: 00 &lt 2022-0 No 6-27 00:00: 00 &lt 2022-0 No 6-27 00:00: 00 Dose 2022-0 No Unknown 6- 00:00: 00 losartan 2022-0 No 1mg 100 [...] 00:00: 00 fluticasone 2022-0 No 1mcg/ac propionate 6- tuation 50 00:00: mcg/actuati 00 on nasal spray,suspe nsion &lt 2-0 No 6-27 00:00: 00 &lt 2022-0 No 6-27 00:00: 00 &lt 2022-0 No 6-27 00:00: 00 &lt 2022-0 No 6-27 00:00: 00 Dose 2022-0 No Unknown 6-27 00:00: 00 losartan 2022-0 No 1mg 100 6-27 mg-hydrochl 00:00: orothiazide 00 12.5 mg tablet atorvastati 2022-0 No 1mg n 40 mg 6-27 tablet [...] &lt 2022-0 No 6-24 00:00: 00 mirtazapine 2022-0 No 1mg 45 mg 6-22 tablet 00:00: 00 TAKE 1 2-0 No TABLET AT 6-22 BEDTIME. 00:00: 00 mirtazapine 2022-0 No 1mg 45 [...] &lt 2022-0 No 6-17 00:00: 00 imiquimod 2022-0 No 1% 3.75 % 5-23 topical 00:00: cream in a 00 pump fluconazole 2-0 No 1mg 150 mg 5-23 tablet 00:00: 00 fluticasone 2022-0 No 1mcg/ac propionate 5-23 tuation 50 00:00: mcg/actuati 00 on nasal spray,suspe nsion Dose 2022-0 No Unknown 5-23 00:00: 00 fluconazole 2021-0 No 1mg 150 mg 5-23 tablet 00:00: 00 fluticasone 2-0 No 1mcg/ac propionate 5-23 tuation 50 00:00: mcg/actuati 00 on nasal spray,suspe nsion imiquimod 2021-0 No 1% 3.75 % 5-23 topical 00:00: cream in a 00 pump fluconazole 2021-0 No 1mg 150 mg 5-23 tablet 00:00: 00 fluticasone 2-0 No 1mcg/ac propionate 5-23 tuation 50 00:00: mcg/actuati 00 on nasal spray,suspe nsion imiquimod 2021-0 No 1% 3.75 % 5-23 topical 00:00: cream in a 00 pump fluconazole 2021-0 No 1mg 150 mg 5-23 tablet 00:00: 00 fluticasone 2021-0 No 1mcg/ac propionate 5-23 tuation 50 00:00: mcg/actuati 00 on nasal spray,suspe nsion sulfamethox Yes [id number] 1{tbl} Take 1 Univers azole-trime 5-05 tablet by ity of thoprim 00:00: mouth [place] 800-160 mg 00 daily. Medical per tablet Branch sulfamethox Yes [id number] 1{tbl} Take 1 Univers azole-trime 5-05 tablet by ity of thoprim 00:00: mouth [place] 800-160 mg 00 daily. Medical per tablet Branch sulfamethox Yes [id number] 1{tbl} Take 1 Univers azole-trime 5-05 tablet by ity of thoprim 00:00: mouth [place] 800-160 mg 00 daily. Medical per tablet Branch sulfamethox Yes [id number] 1{tbl} Take 1 Univers azole-trime 5-05 tablet by ity of thoprim 00:00: mouth [place] 800-160 mg 00 daily. Medical per tablet Branch sulfamethox Yes [id number] 1{tbl} Take 1 Univers azole-trime 5-05 tablet by ity of thoprim 00:00: mouth [place] 800-160 mg 00 daily. Medical per tablet Branch ALPRAZOLAM Yes Take by [place] [facility] ers ORAL 5-04 mouth. ity of 17:22: [place] [address] Medical Branch ALPRAZOLAM Yes Take by [place] [facility] ers ORAL 5-04 mouth. ity of 17:22: [place] [address] Medical Branch ALPRAZOLAM Yes Take by [place] [facility] ers ORAL 5-04 mouth. ity of 17:22: [place] [address] Medical Branch ALPRAZOLAM Yes Take by [place] [facility] ers ORAL 5-04 mouth. ity of 17:22: [place] [address] Medical Branch ALPRAZOLAM Yes Take by [place] [facility] ers ORAL 5-04 mouth. ity of 17:22: [place] [address] Medical Branch efavirenz Yes [id number] 600mg Take 1 Un inocente 600 mg 5-04 tablet by ity of tablet 00:00: mouth [place] 00 daily. Medical Branch amoxicillin Yes [id number] 1{tbl} Take 1 Univers -clavulanat 5-04 tablet by ity of e 875-125 00:00: mouth [place] mg per 00 every 12 Medical tablet (twelve) Branch hours. lamiVUDine 0 Yes [id number] 150mg Take 1 U nivers 150 mg 5-04 tablet by ity of tablet 00:00: mouth 2 [place] 00 (two) Medical times Branch daily. metoprolol 0 Yes [id number] 12.5mg Take 0.5 Univers tartrate 25 5-04 tablets by it y of mg tablet 00:00: mouth 2 [place] 00 (two) Medical times Branch daily. nystatin 0 Yes [id number] Take 5 mL Univers 100,000 5-04 by mouth 4 ity of unit/mL 00:00: (four) [place] suspension 00 times Medical daily. Branch efavirenz 0 Yes [id number] 600mg Take 1 Un inocente 600 mg 5-04 tablet by ity of tablet 00:00: mouth [place] 00 daily. Medical Branch amoxicillin 0 Yes [id number] 1{tbl} Take 1 Univers -clavulanat 5-04 tablet by ity of e 875-125 00:00: mouth [place] mg per 00 every 12 Medical tablet (twelve) Branch hours. lamiVUDine 2021-0 Yes [id number] 150mg Take 1 U nivers 150 mg 5-04 tablet by ity of tablet 00:00: mouth (two) Medical times Branch daily. metoprolol 2-0 Yes [id number] 12.5mg Take 0.5 Univers tartrate 25 5-04 tablets by it y of mg tablet 00:00: mouth 2 (two) Medical times Branch daily. nystatin 2-0 Yes [id number] Take 5 mL Univers 100,000 5-04 by mouth 4 ity of unit/mL 00:00: (four) [place] suspension 00 times Medical daily. Branch efavirenz 2021-0 Yes [id number] 600mg Take 1 Un inocente 600 mg 5-04 tablet by ity of tablet 00:00: mouth 00 daily. Medical Branch amoxicillin 2021-0 Yes [id number] 1{tbl} Take 1 Univers -clavulanat 5-04 tablet by ity of e 875-125 00:00: mouth [place] mg per 00 every 12 Medical tablet (twelve) Branch hours. lamiVUDine 2021-0 Yes [id number] 150mg Take 1 U nivers 150 mg 5-04 tablet by ity of tablet 00:00: mouth (two) Medical times Branch daily. metoprolol 2021-0 Yes [id number] 12.5mg Take 0.5 Univers tartrate 25 5-04 tablets by it y of mg tablet 00:00: mouth (two) Medical times Branch daily. nystatin 2021-0 Yes [id number] Take 5 mL Univers 100,000 5-04 by mouth 4 ity of unit/mL 00:00: (four) [place] suspension 00 times Medical daily. Branch efavirenz 2021-0 Yes [id number] 600mg Take 1 Un inocente 600 mg 5-04 tablet by ity of tablet 00:00: mouth 00 daily. Medical Branch amoxicillin 2-0 Yes [id number] 1{tbl} Take 1 Univers -clavulanat 5-04 tablet by ity of e 875-125 00:00: mouth [place] mg per 00 every 12 Medical tablet (twelve) Branch hours. lamiVUDine 2022-0 Yes [id number] 150mg Take 1 U nivers 150 mg 5-04 tablet by ity of tablet 00:00: mouth 2 (two) Medical times Branch daily. metoprolol 2022-0 Yes [id number] 12.5mg Take 0.5 Univers tartrate 25 5-04 tablets by it y of mg tablet 00:00: mouth 2 00 (two) Medical times Branch daily. nystatin 2022-0 Yes [id number] Take 5 mL Univers 100,000 5-04 by mouth 4 ity of unit/mL 00:00: (four) [place] suspension 00 times Medical daily. Branch efavirenz 2021-0 Yes [id number] 600mg Take 1 Un inocente 600 mg 5-04 tablet by ity of tablet 00:00: mouth [place] 00 daily. Medical Branch amoxicillin 2021-0 Yes [id number] 1{tbl} Take 1 Univers -clavulanat 5-04 tablet by ity of e 875-125 00:00: mouth [place] mg per 00 every 12 Medical tablet (twelve) Branch hours. lamiVUDine 2021-0 Yes [id number] 150mg Take 1 U nivers 150 mg 5-04 tablet by ity of tablet 00:00: mouth 2 (two) Medical times Branch daily. metoprolol 2021-0 Yes [id number] 12.5mg Take 0.5 Univers tartrate 25 5-04 tablets by it y of mg tablet 00:00: mouth 2 00 (two) Medical times Branch daily. nystatin 2021-0 Yes [id number] Take 5 mL Univers 100,000 5-04 by mouth 4 ity of unit/mL 00:00: (four) [place] suspension 00 times Medical daily. Branch amlodipine 2021-0 No 1mg 10 mg 4-11 tablet 00:00: 00 losartan 2-0 No 1mg 100 mg 4-11 tablet 00:00: 00 Epzicom 600 2-0 No 1mg mg-300 mg 4-11 tablet 00:00: 00 citalopram 2-0 No 1mg 20 mg 4-11 tablet 00:00: [...] mcg/actuati 00 on nasal spray,suspe nsion Dose 2022-0 No Unknown 4-11 00:00: 00 atorvastati 2022-0 No 1mg n 40 mg 4-11 tablet 00:00: 00 amlodipine 2022-0 No 1mg 10 mg 4-11 tablet 00:00: 00 allopurinol 2022-0 No 1mg 100 mg 4-11 tablet 00:00: 00 mirtazapine 2022-0 No 1mg 45 mg 4-11 tablet 00:00: 00 Dose 2022-0 No Unknown 4-11 00:00: 00 Dose 2022-0 No Unknown 4-11 00:00: 00 Dose 2022-0 No Unknown 4-11 00:00: 00 Dose 2022-0 No Unknown 4-11 00:00: 00 Dose 2022-0 No Unknown 4-11 00:00: 00 fluticasone 2022-0 No 1mcg/ac propionate [...] 00 on nasal spray,suspe nsion ProAir HFA 2021-0 No 2mcg/ac 90 4-11 tuation mcg/actuati 00:00: on aerosol 00 inhaler atorvastati 2-0 No 1mg n 40 mg 4-11 tablet 00:00: 00 amlodipine 2-0 No 1mg 10 mg 4-11 tablet 00:00: 00 losartan 2-0 No 1mg 100 mg 4-11 tablet 00:00: 00 Epzicom 600 2-0 No 1mg mg-300 mg 4-11 tablet 00:00: 00 citalopram 2-0 No 1mg 20 mg 4-11 tablet 00:00: [...] 00 on nasal spray,suspe nsion ProAir HFA 2021-0 No 2mcg/ac 90 4-11 tuation mcg/actuati 00:00: on aerosol 00 inhaler atorvastati 2021-0 No 1mg n 40 mg 4-11 tablet 00:00: 00 Dose 2-0 No Unknown 3-23 [...] 3-15 00:00: 00 Dose 2022-0 No Unknown 1-26 00:00: 00 fluticasone 2-0 No 1mcg/ac propionate 1-26 tuation 50 00:00: mcg/actuati 00 on nasal spray,suspe nsion Dose 2-0 No Unknown 1- 00:00: 00 fluticasone 2-0 No 1mcg/ac propionate 1-26 tuation 50 00:00: mcg/actuati 00 on nasal spray,suspe nsion Dose 2-0 No Unknown 1- 00:00: 00 fluticasone 2021-0 No 1mcg/ac propionate 03-08 tuation 50 00:00: mcg/actuati 00 on nasal spray,suspe nsion Dose No Unknown 03-08 00:00: 00 fluticasone 2021-0 [...] 00:00: prim 160 mg 00 tablet Dose 2020-02 No Unknown 2-08 00:00: 00 Dose 2020-02 No Unknown 2-08 00:00: 00 Dose 2020-02 No Unknown 2-08 00:00: 00 Dose 2020-02 No Unknown 2-08 00:00: 00 Dose 2020-02 No Unknown 2-07 00:00: 00 Dose 2020-02 No Unknown 2-07 00:00: 00 ibuprofen 2020-02 No 1mg 600 mg 2-07 tablet 00:00: 00 tizanidine 2020-02 No 1mg 4 mg tablet 2-07 00:00: 00 fluticasone 2020-02 No 1mcg/ac propionate 2-07 tuation 50 00:00: mcg/actuati 00 on nasal spray,suspe nsion Dose 2020-02 No Unknown 2-07 00:00: 00 Dose 2020- No Unknown 2-07 00:00: 00 tizanidine 2020-02 No 1mg 4 mg tablet 2-07 00:00: 00 Dose 2020-02 No Unknown 2-07 00:00: 00 fluticasone 2020-02 No 1mcg/ac propionate 2-07 tuation 50 00:00: mcg/actuati 00 on nasal spray,suspe nsion Dose 2020-02 No Unknown 2-07 00:00: 00 Dose 2020-02 No Unknown 2-07 00:00: 00 ibuprofen 2020- No 1mg 600 mg 2-07 tablet 00:00: 00 tizanidine 2020- No 1mg 4 mg tablet 2-07 00:00: 00 fluticasone 2020- No 1mcg/ac propionate 2-07 tuation 50 00:00: mcg/actuati 00 on nasal spray,suspe nsion Dose 2020-02 No Unknown 2-07 00:00: 00 Dose 2020- No Unknown 2- 00:00: 00 ibuprofen 2020- No 1mg 600 mg 2-07 tablet 00:00: 00 tizanidine 2020-02 No 1mg 4 mg tablet 2- 00:00: 00 fluticasone 2020-02 No 1mcg/ac propionate 2- tuation 50 00:00: mcg/actuati 00 on nasal [...] 2020-02 No Unknown 0-26 00:00: 00 atorvastati 2020- No 1mg n 40 mg 0-26 tablet 00:00: 00 Dose 2020- No Unknown 0-26 00:00: 00 Dose 2020- No Unknown 0-26 00:00: 00 loratadine 2020- No 1mg 10 mg 0-26 tablet 00:00: 00 Dose 2020- No Unknown 0-26 00:00: 00 cyclobenzap 2020- No 12mg rine 5 mg 0-26 tablet 00:00: 00 mirtazapine 2020- No 1mg 45 mg 0-26 tablet 00:00: 00 ibuprofen 2020- No 1mg 800 mg 0-26 tablet 00:00: 00 ferrous 2020-1 No 1(65 mg sulfate 325 0-26 iron) mg (65 mg 00:00: iron) 00 tablet,ruchi yed release fluticasone 2020-02 No 1mcg/ac propionate 0-26 tuation 50 00:00: mcg/actuati 00 on nasal spray,suspe nsion Flovent HFA 2020-02 No 2mcg/ac 220 0-26 tuation mcg/actuati 00:00: on aerosol 00 inhaler Dose 2020-02 No Unknown 0-26 00:00: 00 imiquimod 2020-02 No 1% 3.75 % 0-26 [...] 1mg 45 mg 0-26 tablet 00:00: 00 Dose 2020-02 No Unknown 0-26 00:00: 00 Dose 2020-02 No Unknown 0-26 00:00: 00 Dose 2020-02 No Unknown 0-26 00:00: 00 Dose 2020-02 No Unknown 0-26 00:00: 00 fluticasone 2020-02 No 1mcg/ac propionate 0-26 tuation [...] 2020-02 No Unknown 0-26 00:00: 00 Dose 2020- No Unknown 0-26 00:00: 00 loratadine 2020- No 1mg 10 mg 0-26 tablet 00:00: 00 Dose 2020- No Unknown 0-26 00:00: 00 cyclobenzap 2020- No 12mg rine 5 mg 0-26 tablet 00:00: 00 mirtazapine 2020- No 1mg 45 mg 0-26 tablet 00:00: 00 ibuprofen 2020- No 1mg 800 mg 0-26 tablet 00:00: [...] 2020-02 No Unknown 0-26 00:00: 00 Dose 2020- No Unknown 0-26 00:00: 00 atorvastati 2020- No 1mg n 40 mg 0-26 tablet 00:00: 00 Dose 2020- No Unknown 0-26 00:00: 00 Dose 2020- No Unknown 0-26 00:00: 00 loratadine 2020- No 1mg 10 mg 0-26 tablet 00:00: 00 Dose 2020- No Unknown 0-26 00:00: 00 cyclobenzap 2020- No 12mg rine 5 mg 0-26 tablet 00:00: 00 mirtazapine 2020- No 1mg 45 mg 0-26 tablet 00:00: 00 ibuprofen 2020- No 1mg 800 mg 0-26 tablet 00:00: 00 ferrous 2020-1 No 1(65 mg sulfate 325 0-26 iron) mg (65 mg 00:00: iron) 00 tablet,ruchi yed release fluticasone 2020-1 No 1mcg/ac propionate 0-26 tuation 50 00:00: [...] topical 00:00: cream in a 00 pump cyclobenzap 2020-0 No 12mg rine 5 mg 9-01 tablet 00:00: 00 ibuprofen 1-0 No 1mg 800 mg 9-01 tablet 00:00: 00 cyclobenzap 2020-0 No 12mg rine 5 mg 9-01 tablet 00:00: 00 ibuprofen 1-0 No 1mg 800 mg 9-01 tablet 00:00: 00 cyclobenzap 2020-0 No 12mg rine 5 mg 9-01 tablet 00:00: 00 ibuprofen 1-0 No 1mg 800 mg 9-01 tablet 00:00: 00 cyclobenzap 2020-0 No 12mg rine 5 mg 9-01 tablet 00:00: 00 ibuprofen 2020-0 No 1mg 800 mg 9-01 tablet 00:00: 00 losartan 2020-0 Yes [id number] 100mg Take 1 U nivers 100 mg 8-20 tablet by ity of tablet 00:00: mouth [place] 00 daily. Medical Branch losartan 2020-0 Yes [id number] 100mg Take 1 U nivers 100 mg 8-20 tablet by ity of tablet 00:00: mouth [place] 00 daily. Medical Branch losartan 2020-0 Yes [id number] 100mg Take 1 U nivers 100 mg 8-20 tablet by ity of tablet 00:00: mouth [place] 00 daily. Medical Branch losartan 2020-0 Yes [id number] 100mg Take 1 U nivers 100 mg 8-20 tablet by ity of tablet 00:00: mouth [place] 00 daily. Medical Branch losartan 2020-0 Yes [id number] 100mg Take 1 U nivers 100 mg 8-20 tablet by ity of tablet 00:00: mouth [place] 00 daily. Medical Branch Flovent HFA 2020-0 No 2mcg/ac 220 8-07 tuation mcg/actuati 00:00: on aerosol 00 inhaler ProAir HFA 2020-0 No 1mcg/ac 90 8-07 tuation mcg/actuati 00:00: on aerosol 00 inhaler losartan 1-0 No 1mg 100 mg 8-07 tablet 00:00: 00 amlodipine 2021-0 No 1mg 10 mg 8-07 tablet [...] cyclobenzap 1-0 No 12mg rine 5 mg 8-07 tablet [...] tuation mcg/actuati 00:00: on aerosol 00 inhaler Dose 2020-0 No Unknown 8-07 00:00: 00 amlodipine 1-0 No 1mg 10 mg 8-07 tablet 00:00: 00 allopurinol 1-0 No 1mg 100 mg 8-07 tablet 00:00: 00 atorvastati 2021-0 No 1mg n 40 mg 8-07 tablet 00:00: 00 citalopram 2021-0 No 1mg 20 mg 8-07 tablet 00:00: 00 Epzicom 600 1-0 No 1mg mg-300 mg 8-07 tablet 00:00: 00 mirtazapine 1-0 No 1mg 45 mg 8-07 tablet 00:00: 00 ferrous 1-0 No 1(65 mg sulfate 325 09-17 iron) mg (65 mg 00:00: iron) 00 tablet,ruchi yed release Dose 2020-0 No Unknown 09-17 00:00: 00 Dose 1-0 No Unknown 09-17 00:00: 00 Dose 2020-0 No Unknown 09-17 00:00: 00 fluticasone 2020-0 No 1mcg/ac propionate 09-17 tuation 50 00:00: mcg/actuati 00 on nasal spray,suspe nsion Flovent HFA 2020-0 No 2mcg/ac 220 8 tuation mcg/actuati 00:00: on aerosol 00 inhaler ProAir HFA 2020-0 No 1mcg/ac 90 8- tuation mcg/actuati 00:00: on aerosol 00 inhaler losartan 1-0 No 1mg 100 mg 8- tablet 00:00: 00 amlodipine 1-0 No 1mg 10 mg 8- tablet 00:00: 00 loratadine 1-0 No 1mg 10 mg 8- tablet 00:00: 00 allopurinol 1-0 No 1mg 100 mg 8- tablet 00:00: 00 atorvastati 1-0 No 1mg n 40 mg 8- tablet 00:00: 00 citalopram 1-0 No 1mg 20 mg 8- tablet 00:00: 00 Epzicom 600 1-0 No 1mg mg-300 mg 8- tablet 00:00: 00 cyclobenzap 1-0 No 12mg rine 5 mg 8- tablet 00:00: 00 mirtazapine 1-0 No 1mg 45 mg 8- tablet 00:00: 00 ferrous 1-0 No 1(65 mg sulfate 325 09-17 iron) mg (65 mg 00:00: iron) 00 tablet,ruchi yed release fluticasone 2020-0 No 1mcg/ac propionate 09-17 tuation 50 00:00: mcg/actuati 00 on nasal spray,suspe nsion Flovent HFA 2020-0 No 2mcg/ac 220 8- tuation mcg/actuati 00:00: on aerosol 00 inhaler [...] 40 mg 8-07 tablet 00:00: 00 citalopram 1-0 No 1mg 20 mg 8-07 tablet 00:00: 00 Epzicom 600 1-0 No 1mg mg-300 mg 8-07 tablet 00:00: 00 cyclobenzap 1-0 No 12mg rine 5 mg 8-07 tablet 00:00: 00 mirtazapine 2020-0 No 1mg 45 mg 8-07 tablet 00:00: 00 ferrous 1-0 No 1(65 mg sulfate 325 8-07 iron) mg (65 mg 00:00: iron) 00 tablet,ruchi yed release fluticasone 2020-0 No 1mcg/ac propionate 8-07 tuation 50 00:00: mcg/actuati 00 on nasal spray,suspe nsion Flovent HFA 2020-0 No 2mcg/ac 220 7-15 tuation mcg/actuati 00:00: on aerosol 00 inhaler ProAir HFA 2020-0 No 1mcg/ac 90 7-15 tuation mcg/actuati 00:00: on aerosol 00 inhaler losartan 2020-0 No 1mg 100 mg 7-15 tablet 00:00: [...] 100 mg 7-15 tablet 00:00: 00 loratadine No 1mg 10 mg 7-15 tablet 00:00: 00 cyclobenzap No 12mg rine 5 mg 7-15 tablet 00:00: 00 mirtazapine No 1mg 45 mg 7-15 tablet 00:00: 00 ferrous 2020-0 No 1(65 mg sulfate 325 7-15 iron) mg (65 mg 00:00: iron) 00 tablet,ruchi yed release fluticasone No 1mcg/ac propionate 7-15 tuation 50 00:00: mcg/actuati 00 on nasal spray,suspe nsion amLODIPine Yes [id number] 10mg Take 1 [facility] 10 mg 7-02 tablet by ity of tablet 00:00: mouth [place] 00 daily. Medical Branch atorvastati Yes [id number] 40mg Take 1 [facility] n 40 mg 7-02 tablet by ity of tablet 00:00: mouth at [place] 00 bedtime. Medical Branch amLODIPine Yes [id number] 10mg Take 1 [facility] 10 mg 7-02 tablet by ity of tablet 00:00: mouth [place] 00 daily. Medical Branch atorvastati Yes [id number] 40mg Take 1 [facility] n 40 mg 7-02 tablet by ity of tablet 00:00: mouth at [place] 00 bedtime. Medical Branch amLODIPine Yes [id number] 10mg Take 1 [facility] 10 mg 7-02 tablet by ity of tablet 00:00: mouth [place] 00 daily. Medical Branch atorvastati Yes [id number] 40mg Take 1 [facility] n 40 mg 7-02 tablet by ity of tablet 00:00: mouth at [place] bedtime. Medical Branch amLODIPine Yes [id number] 10mg Take 1 [facility] 10 mg 7-02 tablet by ity of tablet 00:00: mouth [place] 00 daily. Medical Branch atorvastati Yes [id number] 40mg Take 1 [facility] n 40 mg 7-02 tablet by ity of tablet 00:00: mouth at [place] bedtime. Medical Branch amLODIPine Yes [id number] 10mg Take 1 [facility] 10 mg 7-02 tablet by ity of tablet 00:00: mouth [place] 00 daily. Medical Branch atorvastati Yes [id number] 40mg Take 1 [facility] n 40 mg 7-02 tablet by ity of tablet 00:00: mouth at [place] 00 bedtime. Medical Branch fluticasone Yes [id number] 2{spray Use 2 [facility] propionate 6-09 } Sprays in ity of 50 00:00: each [place] mcg/actuati 00 nostril Medic al on nasal daily. Branch spray fluticasone Yes [id number] 2{puff} Inhale 2 [facility] propionate 6-09 Puffs ity of (FLOVENT 00:00: every 12 [place] HFA) 220 00 (twelve) Medical mcg/actuati hours. Branch on inhaler albuterol Yes [id number] 2{puff} Inhale 2 [facility] 90 6-09 Puffs ity of mcg/actuati 00:00: every 4 [place] as on inhaler 00 (four) Medical hours as Branch needed for Wheezing or Shortness of Breath. fluticasone Yes [id number] 2{spray Use 2 [facility] propionate 6-09 } Sprays in ity of 50 00:00: each [place] mcg/actuati 00 nostril Medic al on nasal daily. Branch spray fluticasone Yes [id number] 2{puff} Inhale 2 [facility] propionate 6-09 Puffs ity of (FLOVENT 00:00: every 12 [place] HFA) 220 00 (twelve) Medical mcg/actuati hours. Branch on inhaler albuterol Yes [id number] 2{puff} Inhale 2 [facility] 90 6-09 Puffs ity of mcg/actuati 00:00: every 4 [place] on inhaler 00 (four) Medical hours as Branch needed for Wheezing or Shortness of Breath. fluticasone Yes [id number] 2{spray Use 2 [facility] propionate 6-09 } Sprays in ity of 50 00:00: each [place] mcg/actuati 00 nostril Medic al on nasal daily. Branch spray fluticasone Yes [id number] 2{puff} Inhale 2 [facility] propionate 6-09 Puffs ity of (FLOVENT 00:00: every 12 [place] HFA) 220 00 (twelve) Medical mcg/actuati hours. Branch on inhaler albuterol 2020-0 Yes [id number] 2{puff} Inhale 2 [facility] 90 6-09 Puffs ity of mcg/actuati 00:00: every 4 [place] on inhaler 00 (four) Medical hours as Branch needed for Wheezing or Shortness of Breath. fluticasone 2020-0 Yes [id number] 2{spray Use 2 [facility] propionate 6-09 } Sprays in ity of 50 00:00: each [place] mcg/actuati 00 nostril Medic al on nasal daily. Branch spray fluticasone 2020-0 Yes [id number] 2{puff} Inhale 2 [facility] propionate 6-09 Puffs [facility] (twelve[facility] Medical mcg/actuati hours. Branch on inhaler albuterol 2020-0 Yes [id number] 2{puff} Inhale 2 [facility] 90 6-09 Puffs ity of mcg/actuati 00:00: every 4 [place] on inhaler 00 (four) Medical hours as Branch needed for Wheezing or Shortness of Breath. fluticasone 2020-0 Yes [id number] 2{spray Use 2 [facility] propionate 6-09 } Sprays in ity of 50 00:00: each [place] mcg/actuati 00 nostril Medic al on nasal daily. Branch spray fluticasone 2020-0 Yes [id number] 2{puff} Inhale 2 [facility] propionate 6-09 Puffs [facility] (twelve) Medical mcg/actuati hours. Branch on inhaler albuterol 2020-0 Yes [id number] 2{puff} Inhale 2 [facility] 90 6-09 Puffs ity of mcg/actuati 00:00: every 4 [place] on inhaler 00 (four) Medical hours as Branch needed for Wheezing or Shortness of Breath. ibuprofen 2020-0 No 1mg 800 mg 6-08 tablet 00:00: 00 ibuprofen 2021-0 No 1mg 800 mg 6-08 tablet 00:00: 00 ibuprofen 2021-0 No 1mg 800 mg 6-08 tablet 00:00: 00 ibuprofen 2021-0 No 1mg 800 mg 6-08 tablet 00:00: 00 ProAir HFA 2021-0 No 1mcg/ac 90 6-01 tuation mcg/actuati 00:00: [...] 00 on nasal spray,suspe nsion ProAir HFA 1-0 No 1mcg/ac 90 6-01 tuation mcg/actuati 00:00: [...] 00 on nasal spray,suspe nsion ProAir HFA 1-0 No 1mcg/ac 90 6-01 tuation mcg/actuati 00:00: [...] 00:00: 00 fluticasone 2020-0 No 1mcg/ac propionate 6-01 tuation 50 00:00: mcg/actuati 00 on nasal spray,suspe nsion ibuprofen 2020-0 Yes [id number] 600mg Take 1 [facility] 600 mg 5-21 tablet by ity of tablet 00:00: mouth [place] 00 every 6 Medical (six) Branch hours as needed for Pain (scale 4-6). ibuprofen 2020-0 Yes [id number] 600mg Take 1 [facility] 600 mg 5-21 tablet by ity of tablet 00:00: mouth [place] 00 every 6 Medical (six) Branch hours as needed for Pain (scale 4-6). ibuprofen 2020-0 Yes [id number] 600mg Take 1 [facility] 600 mg 5-21 tablet by ity of tablet 00:00: mouth [place] 00 every 6 Medical (six) Branch hours as needed for Pain (scale 4-6). ibuprofen 2020-0 Yes [id number] 600mg Take 1 [facility] 600 mg 5-21 tablet by ity of tablet 00:00: mouth [place] 00 every 6 Medical (six) Branch hours as needed for Pain (scale 4-6). ibuprofen 2020-0 Yes [id number] 600mg Take 1 [facility] 600 mg 5-21 tablet by ity of tablet 00:00: mouth [place] 00 every 6 Medical (six) Branch hours as needed for Pain (scale 4-6). Flovent HFA 2020-0 No 2mcg/ac 220 5-07 tuation mcg/actuati 00:00: on aerosol 00 inhaler ProAir HFA 2021-0 No 1mcg/ac 90 5-07 tuation mcg/actuati 00:00: [...] yed release fluticasone 1-0 No 1mcg/ac propionate 06-17 tuation 50 00:00: mcg/actuati 00 on nasal spray,suspe nsion Voltaren 1 1-0 No 1% % topical 3-12 gel 00:00: 00 mirtazapine 2021-0 No 1mg 45 mg 3-12 tablet 00:00: 00 Tessalon 2021-0 No 12mg Perles 100 3-12 mg capsule 00:00: 00 Voltaren 1 2021-0 No 1% % topical 3-12 gel 00:00: 00 mirtazapine 2021-0 No 1mg 45 mg 3-12 tablet 00:00: 00 Tessalon 2021-0 No 12mg Perles 100 3-12 mg capsule 00:00: 00 Voltaren 1 2021-0 No 1% % topical 3-12 gel 00:00: 00 mirtazapine 2021-0 No 1mg 45 mg 3-12 tablet 00:00: 00 Tessalon 2021-0 No 12mg Perles 100 3-12 mg capsule 00:00: 00 Voltaren 1 2021-0 No 1% % topical 3-12 gel 00:00: 00 mirtazapine 2021-0 No 1mg 45 mg 3-12 tablet 00:00: 00 Tessalon 2021-0 No 12mg Perles 100 3-12 mg capsule 00:00: 00 fluticasone 1-0 No 1mcg/ac propionate 03-01 tuation 50 00:00: mcg/actuati 00 on nasal spray,suspe nsion fluticasone 1-0 No 1mcg/ac propionate 03-01 tuation 50 00:00: mcg/actuati 00 on nasal spray,suspe nsion fluticasone 2020-0 No 1mcg/ac propionate 03-01 tuation 50 00:00: mcg/actuati 00 on nasal [...] mg-300 mg 2-17 tablet 00:00: 00 amlodipine 2019- No 1mg 10 mg 2-17 tablet 00:00: 00 losartan 2019-1 No 1mg 100 mg 2-17 tablet 00:00: 00 allopurinol 2019- No 1mg 100 mg 2-17 tablet 00:00: 00 citalopram 2019- No 1mg 20 mg 2-17 tablet 00:00: [...] iron) mg (65 mg 00:00: iron) 00 tablet,urchi yed release Flovent HFA 2019- No 2mcg/ac 220 2-17 tuation mcg/actuati 00:00: on aerosol 00 inhaler ProAir HFA 2019- No 1mcg/ac 90 2-17 tuation mcg/actuati 00:00: on aerosol 00 inhaler Voltaren 1 2019- No 1% % topical 2-17 gel 00:00: [...] iron) 00 tablet,ruchi yed release Flovent HFA 2019- No 2mcg/ac 220 2-17 tuation mcg/actuati 00:00: on aerosol 00 inhaler ProAir HFA 2019- No 1mcg/ac 90 2-17 tuation mcg/actuati 00:00: on aerosol 00 inhaler Voltaren 1 2019-1 No 1% % topical 2-17 gel 00:00: 00 loratadine 2019-1 No 1mg 10 mg 2-17 tablet 00:00: 00 Epzicom 600 2019-1 No 1mg mg-300 mg 2-17 tablet 00:00: 00 amlodipine 2019- No 1mg 10 mg 2-17 tablet 00:00: 00 losartan 2019- No 1mg 100 mg 2-17 tablet 00:00: 00 allopurinol 2019- No 1mg 100 mg 2-17 tablet 00:00: 00 citalopram 2019- No 1mg 20 mg 2-17 tablet 00:00: 00 atorvastati 2019- No 1mg n 40 mg 2-17 tablet 00:00: 00 mirtazapine 2019- No 1mg 45 mg 2-17 tablet 00:00: 00 ferrous 2019- No 1(65 mg sulfate 325 2-17 iron) [...] 00:00: on aerosol 00 inhaler Voltaren 1 2019- No 1% % topical 0-23 gel 00:00: 00 losartan 2019- No 1mg 100 mg 0-23 tablet 00:00: 00 amlodipine 2019-1 No 1mg 10 mg 0-23 tablet 00:00: 00 Epzicom 600 2019-1 No 1mg mg-300 mg 0-23 tablet 00:00: 00 ibuprofen 2019-1 No 1mg 800 mg 0-23 tablet 00:00: 00 loratadine 2019- No 1mg 10 mg 0-23 tablet 00:00: 00 Voltaren 1 2019- No 1% % topical 0-23 gel 00:00: 00 losartan 2019-1 No 1mg 100 mg 0-23 tablet 00:00: 00 amlodipine 2019-1 No 1mg 10 mg 0-23 tablet 00:00: 00 Epzicom 600 2019-1 No 1mg mg-300 mg 0-23 tablet 00:00: 00 ibuprofen 2020-1 No 1mg 800 mg 0-23 tablet 00:00: 00 Voltaren 1 2020-1 No 1% % topical 0-23 gel 00:00: 00 loratadine 2020-1 No 1mg 10 mg 0-23 tablet 00:00: 00 losartan 2020-1 No 1mg 100 [...] mcg/actuati 00 on nasal spray,suspe nsion allopurinol 2018-02 No 1mg 100 mg 2-27 tablet 00:00: 00 amlodipine 2018-02 No 1mg 10 mg 2-27 tablet 00:00: 00 mirtazapine 2018-02 No 1mg 30 mg 2-27 tablet 00:00: 00 fluticasone 2018-02 No 1mcg/ac propionate 2-27 tuation 50 00:00: mcg/actuati 00 on nasal spray,suspe nsion allopurinol 2018-02 No 1mg 100 mg 2-27 tablet 00:00: 00 amlodipine 2018-02 No 1mg 10 mg 2-27 tablet 00:00: [...] 30 mg 2-09 tablet 00:00: 00 mirtazapine 2018- No 1mg 30 mg 2-09 tablet 00:00: 00 indomethaci 2018- No 1mg n 25 mg 1-12 capsule 00:00: 00 indomethaci 2018- No 1mg n 25 mg 1-12 capsule 00:00: 00 indomethaci 2018- No 1mg n 25 mg 1-12 capsule 00:00: 00 indomethaci 2018- No 1mg n 25 mg 1-12 capsule 00:00: 00 fluticasone 2018- No 1mcg/ac propionate 0-31 tuation 50 00:00: [...] 00:00: on aerosol 00 inhaler Flovent HFA 2018- No 2mcg/ac 220 0-24 tuation mcg/actuati 00:00: on aerosol 00 inhaler Flovent HFA 2018- No 2mcg/ac 220 0-24 tuation mcg/actuati 00:00: on aerosol 00 inhaler Flovent HFA 2018- No 2mcg/ac 220 0-24 tuation mcg/actuati 00:00: on aerosol 00 inhaler Bactrim DS 2018- No 1mg 800 mg-160 0-21 mg tablet 00:00: 00 Bactrim DS 2018- No 1mg 800 mg-160 0-21 mg tablet 00:00: 00 Bactrim DS 2018- No 1mg 800 mg-160 0-21 mg tablet 00:00: 00 Bactrim DS 2018-1 No 1mg 800 mg-160 0-21 mg tablet 00:00: 00 Flovent HFA 2018- No 2mcg/ac 220 0-16 tuation mcg/actuati 00:00: on aerosol 00 inhaler ProAir HFA 2018- No 1mcg/ac 90 0-16 tuation mcg/actuati 00:00: on aerosol 00 inhaler allopurinol 2018- No 1mg 100 mg 0-16 tablet 00:00: 00 amlodipine 2018- No 1mg 10 mg 0-16 tablet 00:00: 00 mirtazapine 2018-1 No 1mg 30 mg 0-16 tablet 00:00: 00 Flovent HFA 2018- No 2mcg/ac 220 0-16 tuation mcg/actuati 00:00: on aerosol 00 inhaler ProAir HFA 2018- No 1mcg/ac 90 0-16 tuation mcg/actuati 00:00: on aerosol 00 inhaler allopurinol 2018-1 No 1mg 100 mg 0-16 tablet 00:00: [...] mcg/actuati 00 on nasal spray,suspe nsion loratadine 2018- No 1mg 10 mg 0-09 [...] on nasal spray,suspe nsion chlorhexidi 2018-02 Yes [id number] 15mL [facility] ne 0-07 spit out ity of (PERIDEX) 00:00: 15 mL 2 [place] 0.12 % 00 (two) Medical mouthwash times Branch daily. chlorhexidi 2018-02 Yes [id number] 15mL [facility] and [facility] ne 0-07 spit out ity of (PERIDEX) 00:00: 15 mL 2 [place] 0.12 % 00 (two) Medical mouthwash times Branch daily. chlorhexidi 2018-02 Yes [id number] 15mL Swish and [facility] ne 0-07 spit out ity of (PERIDEX) 00:00: 15 mL 2 [place] 0.12 % 00 (two) Medical mouthwash times Branch daily. chlorhexidi 2018-02 Yes [id number] 15mL Swish and [facility] ne 0-07 spit out ity of (PERIDEX) 00:00: 15 mL 2 [place] 0.12 % 00 (two) Medical mouthwash times Branch daily. chlorhexidi 2018-02 Yes [id number] 15mL Swish and [facility] ne 0-07 spit out ity of (PERIDEX) 00:00: 15 mL 2 [place] 0.12 % 00 (two) Medical mouthwash times Branch daily. allopurinol No 1mg 100 mg 9-23 tablet 00:00: 00 allopurinol 2018- No 1mg 100 mg 9-23 tablet 00:00: 00 allopurinol 2019-0 No 1mg 100 mg 9-23 tablet 00:00: 00 allopurinol 2018-0 No 1mg 100 mg 9-23 tablet 00:00: 00 amlodipine 2018-0 No 1mg 10 mg 9-17 tablet 00:00: 00 mirtazapine 2018-0 No 1mg 30 mg 9-17 tablet 00:00: [...] mcg/actuati 00:00: on aerosol 00 inhaler citalopram 2017-02 No 1mg 20 mg 0-03 tablet 00:00: 00 Keflex 500 2017-02 No 1mg mg capsule 0-03 00:00: 00 nystatin 2017- No 5unit/m 100,000 0-03 L unit/mL 00:00: oral 00 suspension Flovent HFA 2017-02 No 2mcg/ac 220 0-03 tuation mcg/actuati 00:00: on aerosol 00 inhaler ProAir HFA 2017-02 No 1mcg/ac 90 0-03 tuation mcg/actuati 00:00: on aerosol 00 inhaler citalopram 2017-02 No 1mg 20 mg 0-03 tablet 00:00: 00 Keflex 500 2017-02 No 1mg mg capsule 0-03 00:00: 00 nystatin 2017- No 5unit/m 100,000 0-03 L unit/mL 00:00: oral 00 suspension Flovent HFA 2017-02 No 2mcg/ac 220 0-03 tuation mcg/actuati 00:00: on aerosol 00 inhaler ProAir HFA 2017-02 No 1mcg/ac 90 0-03 tuation mcg/actuati 00:00: on aerosol 00 inhaler citalopram 2017-02 No 1mg 20 mg 0-03 tablet 00:00: 00 Keflex 500 2017-02 No 1mg mg capsule 0-03 00:00: 00 nystatin 2017- No 5unit/m 100,000 0-03 L unit/mL 00:00: oral 00 suspension Flovent HFA 2017-02 No 2mcg/ac 220 0-03 tuation mcg/actuati 00:00: on aerosol 00 inhaler ProAir HFA 2017-02 No 1mcg/ac 90 0-03 tuation mcg/actuati 00:00: on aerosol 00 inhaler citalopram 2017-02 No 1mg 20 mg 0-03 tablet 00:00: 00 Keflex 500 2017-02 No 1mg mg capsule 0-03 00:00: 00 nystatin 2017-02 No 5unit/m 100,000 0-03 L unit/mL 00:00: oral 00 suspension triamcinolo 2017-0 No 1% ne 9-25 acetonide 00:00: 0.1 [...] zolpidem 10 2018-0 No 1mg mg tablet 7- 00:00: 00 citalopram 2018-0 No 1mg 20 [...] one 0.5 % 7-17 topical 00:00: cream benzonatate 2018-0 No 1mg 100 mg 7-17 [...] 00:00: on HFA 00 aerosol inhaler ibuprofen 2017-1 No 1mg 800 mg 2-04 tablet 00:00: 00 Symbicort 2017-1 No 1mcg/ac 160 mcg-4.5 2-04 tuation mcg/actuati 00:00: on HFA 00 aerosol inhaler ibuprofen 2017-1 No 1mg 800 mg 2-04 tablet 00:00: 00 Symbicort 2017-1 No 1mcg/ac 160 mcg-4.5 2-04 tuation mcg/actuati 00:00: on HFA aerosol inhaler ibuprofen 2016-1 No 1mg 800 mg 2-04 tablet 00:00: 00 sulfamethox 2016- No 1mg azole 800 0-30 mg-trimetho 00:00: prim 160 mg 00 tablet ibuprofen 2016- No 1mg 800 mg 0-30 tablet 00:00: 00 sulfamethox 2016- No 1mg azole 800 0-30 mg-trimetho 00:00: prim 160 mg 00 tablet sulfamethox 2016-02 No 1mg azole 800 0-30 mg-trimetho 00:00: prim 160 mg 00 tablet ibuprofen 2016-02 No 1mg 800 mg 0-30 tablet 00:00: 00 ibuprofen 2016- No 1mg 800 mg 0-30 tablet 00:00: 00 sulfamethox 2016-02 No 1mg azole 800 0-30 mg-trimetho 00:00: prim 160 mg 00 tablet ibuprofen 2016-02 No 1mg 800 mg 0-30 tablet 00:00: 00 loratadine 2016- No 1mg 10 mg 0-23 tablet 00:00: 00 Tussin DM 2016-02 No 10mg/5 10 mg-100 0-23 mL mg/5 mL 00:00: syrup 00 loratadine 2016-02 No 1mg 10 mg 0-23 tablet 00:00: 00 Tussin DM 2016- No 10mg/5 10 mg-100 0-23 mL mg/5 mL 00:00: syrup 00 loratadine 2016-02 No 1mg 10 mg 0-23 tablet 00:00: 00 ssin DM 2016-02 No 10mg/5 10 mg-100 0-23 mL mg/5 mL 00:00: syrup 00 loratadine 2016-02 No 1mg 10 mg 0-23 tablet 00:00: 00 Tussin DM 2016-02 No 10mg/5 10 mg-100 0-23 mL mg/5 [...] mouth ity of mg capsule 00:00: at [place] [address] bedtime. Medical Branch Cetirizine 2014-02 Yes 10mg Take 1 [facility] nivers (ZYRTEC) 10 1-13 by mouth ity of mg capsule 00:00: at [place] [address] bedtime. Medical Branch Cetirizine 2014-02 Yes 10mg Take 1 Cap U nivers (ZYRTEC) 10 1-13 by mouth ity of mg capsule 00:00: at [place] [address] bedtime. Medical Branch Cetirizine 2014-02 Yes 10mg Take 1 Cap U nivers (ZYRTEC) 10 1-13 by mouth ity of mg capsule 00:00: at [place] [address] bedtime. Medical Branch Cetirizine 2015-1 Yes 10mg Take 1 Cap U nivers (ZYRTEC) 10 1-13 by mouth ity of mg capsule 00:00: at [place] 00 bedtime. Medical Branch Immunizations Ordered Filled Immunization Date Status Comments Sour e Immunization Name Name Suzette 2021-06-13 Completed [facility] (Cilgavimab) 00:00:00 [facility] 2021-06-13 Completed [facility] of (Tixagevimab) 00:00:00 [facility] 2021-06-13 Completed [facility] of (Cilgavimab) 00:00:00 [facility] 2021-06-13 Completed University of (Tixagevimab) 00:00:00 [facility] 2021-06-13 Completed University of (Cilgavimab) 00:00:00 [facility] 2021-06-13 Completed [facility] of (Tixagevimab) 00:00:00 [facility] 2021-06-13 Completed [facility] of (Cilgavimab) 00:00:00 [facility] 2021-06-13 Completed University of (Tixagevimab) 00:00:00 [facility] 2021-06-13 Completed University of (Cilgavimab) 00:00:00 [facility] 2021-06-13 Completed University of (Tixagevimab) 00:00:00 [facility] TDAP 2014-08-19 Completed University of 00:00:00 [facility] TDAP 2014-08-19 Completed University of 00:00:00 [facility] TDAP 2014-08-19 Completed University of 00:00:00 [facility] TDAP 2014-08-19 Completed University of 00:00:00 [facility] TDAP 2014-08-19 Completed University of 00:00:00 [facility] Influenza Virus 2012-01-21 Completed Universit y of Vaccine 00:00:00 [facility] Influenza Virus 2012-01-21 Completed Universit y of Vaccine 00:00:00 [facility] Influenza Virus 2012-01-21 Completed Universit y of Vaccine 00:00:00 [facility] Influenza Virus 2012-01-21 Completed Universit y of Vaccine 00:00:00 [facility] Influenza Virus 2012-01-21 Completed Universit y of Vaccine 00:00:00 [facility] Vital Signs Vital Name Observation Time Observation Value Comments Source Systolic blood 2021-07-18 20:42:00 174 mm[Hg] Univer sity of pressure [facility] Diastolic blood 2021-07-18 20:42:00 98 mm[Hg] [facility] Heart rate 2021-07-18 20:42:00 104 /min [facility] Body temperature 2021-07-18 20:42:00 [facility] Body height 2021-07-18 20:42:[address] [facility] Body weight 2021-07-18 20:42:[address] [facility] BMI 2021-07-18 20:42:00 21.97 kg/m2 [facility] BP Systolic 2022-02-28 11:50:00 122 mm[Hg] BP Diastolic 2022-02-28 11:50:00 77 mm[Hg] Weight Measured 2022-02-28 11:50:00 106.00 pounds Height Measured 2022-02-28 11:50:00 63.00 inches Body Temperature 2022-02-28 11:50:00 98.10 degrees Heart Rate 2022-02-28 11:50:00 98.00 /min Respiratory Rate 2022-02-28 11:50:00 19.00 /min BP Systolic 2022-01-19 14:02:00 168 mm[Hg] BP [...] Procedure Date / Time Performed Performing Clinician [facility] e REFERRAL- 2022-01-19 06:01:00 Doctor Unassigned, No Univer [facility] REQUEST/RESPONSE Name Medical Branch [id number] Ecg Routine Ecg 2016-10-23 00:00:00 W/least 12 Lds W/i r Plan of Care Planned Activity Planned Date Details Comments Source Goal Plan of Care Note [code = 13611-4] Goal Plan of Care Note [code = 91292-0] Goal Plan of Care Note [code = 79120-5] Goal Plan of Care Note [code = 94455-8] Goal Plan of Care Note [code = 95559-5] Goal Plan of Care Note [code = 76282-5] Goal Plan of Care Note [code = 22657-7] Goal Plan of Care Note [code = 90556-1] Goal Plan of Care Note [code = 08973-3] Goal Plan of Care Note [code = 08323-6] Goal Plan of Care Note [code = 49102-6] Goal Plan of Care Note [code = 35036-7] Goal Plan of Care Note [code = 54676-8] Goal Plan of Care Note [code = 21835-0] Goal Plan of Care Note [code = 00699-8] Goal Plan of Care Note [code = 93984-4] Goal Plan of Care Note [code = 24291-9] Goal Plan of Care Note [code = 81357-1] Goal Plan of Care Note [code = 54479-9] Goal Plan of Care Note [code = 41778-4] Goal Plan of Care Note [code = 40786-9] Goal Plan of Care Note [code = 15194-1] Goal Plan of Care Note [code = 09203-3] Goal Plan of Care Note [code = 61957-8] Goal Plan of Care Note [code = 67031-9] Goal Plan of Care Note [code = 57184-0] Goal Plan of Care Note [code = 00204-6] Goal Plan of Care Note [code = 35609-7] Goal Plan of Care Note [code = 75812-7] Goal Plan of Care Note [code = 19729-9] Goal Plan of Care Note [code = 02003-8] Goal Plan of Care Note [code = 26492-2] Goal Plan of Care Note [code = 20843-2] Goal Plan of Care Note [code = 51483-7] Goal Plan of Care Note [code = 17513-4] Goal Plan of Care Note [code = 00460-1] Goal Plan of Care Note [code = 81387-3] Goal Plan of Care Note [code = 50516-5] Goal Plan of Care Note [code = 47577-5] Goal Plan of Care Note [code = 64062-7] Goal Plan of Care Note [code = 00680-2] Goal Plan of Care Note [code = 57013-5] Goal Plan of Care Note [code = 13755-9] Goal Plan of Care Note [code = 43493-3] Goal Plan of Care Note [code = 05942-0] Goal Plan of Care Note [code = 13432-8] Goal Plan of Care Note [code = 67485-7] Goal Plan of Care Note [code = 34938-2] Goal Plan of Care Note [code = 84242-2] Goal Plan of Care Note [code = 42131-1] Goal Plan of Care Note [code = 47231-7] Goal Plan of Care Note [code = 54028-7] Goal Plan of Care Note [code = 18391-0] Goal Plan of Care Note [code = 78169-9] Goal Plan of Care Note [code = 53665-1] Goal Plan of Care Note [code = 12458-8] Goal Plan of Care Note [code = 66792-3] Goal Plan of Care Note [code = 60509-4] Goal Plan of Care Note [code = 80162-9] Goal Plan of Care Note [code = 83065-4] Goal Plan of Care Note [code = 69551-9] Goal Plan of Care Note [code = 74501-0] Goal Plan of Care Note [code = 94219-1] Goal Plan of Care Note [code = 17219-7] Goal Plan of Care Note [code = 93966-7] Goal Plan of Care Note [code = 38494-6] Goal Plan of Care Note [code = 52416-2] Goal Plan of Care Note [code = 45068-9] Goal Plan of Care Note [code = 62076-2] Goal Plan of Care Note [code = 90996-1] Goal Plan of Care Note [code = 42831-5] Goal Plan of Care Note [code = 17061-9] Goal Plan of Care Note [code = 79423-6] Goal Plan of Care Note [code = 70118-4] Goal Plan of Care Note [code = 99807-1] Goal Plan of Care Note [code = 23691-0] Goal Plan of Care Note [code = 39517-0] Goal Plan of Care Note [code = 88653-7] Goal Plan of Care Note [code = 63415-7] Goal Plan of Care Note [code = 17381-9] Goal Plan of Care Note [code = 99206-5] Goal Plan of Care Note [code = 31022-2] Goal Plan of Care Note [code = 20010-0] Goal Plan of Care Note [code = 38787-2] Goal Plan of Care Note [code = 63111-4] Goal Plan of Care Note [code = 60386-5] Goal Plan of Care Note [code = 64795-0] Goal Plan of Care Note [code = 35810-7] Goal Plan of Care Note [code = 57104-8] Goal Plan of Care Note [code = 65109-1] Goal Plan of Care Note [code = 20218-1] Goal Plan of Care Note [code = 50852-6] Goal Plan of Care Note [code = 35936-4] Goal Plan of Care Note [code = 23184-1] Goal Plan of Care Note [code = 77561-6] Goal Plan of Care Note [code = 15923-1] Goal Plan of Care Note [code = 08415-4] Goal Plan of Care Note [code = 94735-3] Goal Plan of Care Note [code = 90526-0] Goal Plan of Care Note [code = 61424-7] Goal Plan of Care Note [code = 22255-3] Goal Plan of Care Note [code = 99578-4] Goal Plan of Care Note [code = 08851-6] Goal Plan of Care Note [code = 22679-4] Goal Plan of Care Note [code = 79411-0] Goal Plan of Care Note [code = 50485-2] Goal Plan of Care Note [code = 86882-0] Goal Plan of Care Note [code = 82297-0] Goal Plan of Care Note [code = 08755-4] Goal Plan of Care Note [code = 87920-7] Goal Plan of Care Note [code = 54758-0] Goal Plan of Care Note [code = 90324-5] Goal Plan of Care Note [code = 80726-9] Goal Plan of Care Note [code = 53570-5] Goal Plan of Care Note [code = 91409-5] Goal Plan of Care Note [code = 42876-6] Goal Plan of Care Note [code = 36994-2] Goal Plan of Care Note [code = 87570-0] Goal Plan of Care Note [code = 67747-7] Goal Plan of Care Note [code = 73480-7] Goal Plan of Care Note [code = 17287-2] Goal Plan of Care Note [code = 18849-1] Goal Plan of Care Note [code = 35667-4] Goal Plan of Care Note [code = 49590-2] Goal Plan of Care Note [code = 87567-9] Goal Plan of Care Note [code = 98155-9] Goal Plan of Care Note [code = 64289-7] Goal Plan of Care Note [code = 36705-1] Goal Plan of Care Note [code = 53532-8] Goal Plan of Care Note [code = 96322-1] Goal Plan of Care Note [code = 19303-2] Goal Plan of Care Note [code = 92453-6] Goal Plan of Care Note [code = 88424-1] Goal Plan of Care Note [code = 41132-5] Goal Plan of Care Note [code = 92510-7] Goal Plan of Care Note [code = 29945-4] Goal Plan of Care Note [code = 61451-6] Goal Plan of Care Note [code = 76789-6] Goal Plan of Care Note [code = 73469-6] Goal Plan of Care Note [code = 63376-3] Goal Plan of Care Note [code = 44314-0] Goal Plan of Care Note [code = 56536-1] Goal Plan of Care Note [code = 71130-7] Goal Plan of Care Note [code = 36560-9] Goal Plan of Care Note [code = 52643-7] Goal Plan of Care Note [code = 68781-6] Goal Plan of Care Note [code = 01979-4] Goal Plan of Care Note [code = 24380-7] Goal Plan of Care Note [code = 80036-0] Goal Plan of Care Note [code = 94010-7] Goal Plan of Care Note [code = 81829-2] Goal Plan of Care Note [code = 33634-9] Goal Plan of Care Note [code = 08961-1] Goal Plan of Care Note [code = 37536-1] Goal Plan of Care Note [code = 46993-7] Goal Plan of Care Note [code = 15257-0] Goal Plan of Care Note [code = 61425-2] Goal Plan of Care Note [code = 69628-4] Goal Plan of Care Note [code = 33458-1] Goal Plan of Care Note [code = 84336-3] Goal Plan of Care Note [code = 16774-2] Goal Plan of Care Note [code = 53061-7] Goal Plan of Care Note [code = 95787-1] Goal Plan of Care Note [code = 20796-0] Goal Plan of Care Note [code = 46669-1] Goal Plan of Care Note [code = 23453-6] Goal Plan of Care Note [code = 56558-1] Goal Plan of Care Note [code = 71393-1] Goal Plan of Care Note [code = 41863-5] Goal Plan of Care Note [code = 29368-9] Goal Plan of Care Note [code = 46249-1] Goal Plan of Care Note [code = 92987-9] Goal Plan of Care Note [code = 76574-3] Goal Plan of Care Note [code = 08828-3] Encounters Start End Encounter Admission Attending Care Care Encounter Source Date/Time Date/Time Type Type Clinicians Facility Department ID 2022-02-28 2022-02-28 Outpatient CHETAN SFA [id number] 023 Delfino 11:43:30 11:43:30 0118 [facility] 2022-02-28 2022-02-28 Outpatient [id number]- [id number] e7 1z6hr5-h 00:00:00 00:00:00 Visit e066-39a6 633-44a8-9 -9cca-918 cca-918f69 w612w8k09 9a0a89 2022-02-27 2022-02-27 Outpatient R [facility] [id number] Univers 15:30:00 15:30:00 ity of [facility] 2022-02-23 2022-02-[address] [facility] CHETAN 49539-1 023 Delfino 10:25:15 10:25:15 0113 [facility] 2022-02-22 2022-02-22 Case Oleg Ramirezco, UNIVERSIT 1.2.840.114 [id number] Univers 00:00:00 00:00:00 Management Jeanine Jones Y HEALTH 350.1.13.10 ity of CLINICS 4.2.7.2.686 Godfrey meier [phone] [address] 2022-01-29 2022-01-29 Case Jeanie, UNIVERSIT 1.2.953.456 [id number] Univers 00:00:00 00:00:00 Management Osman Loya Y HEALTH 350.1.13.10 [phone] [facility] [address] 2022-01-19 2022-01-19 Outpatient SFA SFA 90769-5 022 Delfino 13:56:18 13:56:18 1209 [facility] You 2022-01-19 2022-01-19 Outpatient [id number] [id number] 00:00:00 00:00:00 Visit 1727-41cc 727-41cc-8 -8650-544 650-13584x 70hk14k8i b58e4d 2022-01-19 2022-01-19 Orders Doctor KAVITA 1.2.840.114 [id number] Univers 00:00:00 00:00:00 Only Unassigned, YEVGENIY 350.1.13.10 ity of [facility] 4.2.7.2.686 Ian as [phone] [facility] [address] 2021-11-15 2021-11-15 Zhang Flores [facility] 1.2.648.187 [id number] [facility] 00:00:00 00:00:00 Management Kasandra Y HEALTH 350.1.13.10 [place] [phone] [facility] [address] 2021-11-06 2021-11-06 Outpatient [id number] 990160-2 00:00:00 00:00:00 Visit 012e-4b99 12e-4b99-8 -89ed-9b1 9ed-9b1c44 j880867jk 4516de 2021-10-10 2021-10-10 Outpatient R [facility] [id number] Univers 09:30:00 09:30:00 ity of [facility] 2021-09-07 2021-09-07 Outpatient ELO BHARDWAJ 906 Radha 00:00:00 00:00:00 HN 0728 [facility] 2021-08-25 2021-08-25 Outpatient Adams_R DMG DMG 68089-1 022 [facility] 03:29:00 03:29:00 0715 [facility] 2021-08-07 2021-08-07 Outpatient [id number]- [id number] db 72acdd-5 00:00:00 00:00:00 Visit 4c69-3dp7 i57-0it9-5 -7tl1-i97 cb5-d02d18 v99h9797l w5845s 2021-07-18 2021-07-18 Office Pgy2 UNIVERSIT 1.2.344.728 [id number] 7006 Univers 15:15:00 16:23:57 Visit Apolinar Weber HEALTH 350.1.13.10 [place] [id number] [facility] [address] 2021-07-18 2021-07-18 [facility] [id number] Univers 15:15:00 16:23:57 [facility] 2021-07-18 2021-07-18 Outpatient [facility] [id number] Univers 15:15:00 15:15:00 [facility] 2021-06-27 2021-06-27 Telephone Mccarty, [facility] 1.2.840.11 [id number] Univers 00:00:00 00:00:00 [facility] 350.1.13.10 i [place] [phone] [facility] [address] 2021-06-15 2021-06-15 Transition ADELINE Paredes 1.2.840.114 [id number] Univers 00:00:00 00:00:00 of Care Lj SOTO 350.1.13.10 [place] [id number] [facility] [address] 2021-06-09 2021-06-14 Inpatient X BILLY VALERIO [facility] [id number] Univers 10:48:00 17:22:00 ity [facility] 2021-06-09 2021-06-14 Hospital Toby Donohue 1.2.840.1 14 [id number] Univers 10:48:00 17:22:00 Encounter Tressa Estrella 350.1.13.10 ity of [facility] 4.2.7.2.686 [place] [phone] [facility] [address] 2021-06-12 2021-06-12 Case BENIGNO Dunn 1.2.169.467 [id number] Univers 00:00:00 00:00:00 Management [facility] 350.1.13.10 [facility] of [facility] [place] [phone] [facility] [address] 2021-06-08 2021-06-08 Emergency X [facility] ERT [id number] Univers 10:46:00 16:28:00 KENNEDI ity of [facility] 2021-06-08 2021-06-[address] [facility] 1.2.978.061 [id number] Univers 10:46:00 16:28:00 Kennedi MACIAS 350.1.13.[address] 4.2.7.2.686 [place] [facility] [phone] [facility] 0[address] 2021-05-24 2021-05-24 Letter KAVITA Quiroz 1.2.883.613 [id number] Univers 00:00:00 00:00:00 (Out) Desttessa VUONG 350.1.13.10 i [facility] 4.2.7.2.686 [place] as [phone] [facility] [address] 2021-05-23 2021-05-23 Orders Doctor KAVITA 1.2.840.114 [id number] Univers 00:00:00 00:00:00 Only Unassigned, YEVGENIY 350.1.13.10 [place]y of [place] [facility] 4.2.7.2.686 Ian as [phone] [facility] [address] 2021-05-16 2021-05-16 Outpatient Adams_R DMG DMG 15136-5 022 [facility] 09:00:00 09:00:00 0405 [facility] 2021-05-01 2021-05-[address] [facility] ERT [id number] Univers 11:30:00 12:47:00 LJ ity of [facility] 2021-05-01 2021-05-[address] [facility] 1.2.840.114 [id number] Univers 11:30:00 12:47:00 Lj MACIAS 350.1.13.10 [address] 4.2.7.2.686 [facility] [phone] [address] 2020-10-04 2020-10-[address] [facility] ERT [id number] Univers 11:44:00 12:54:00 [facility] 2020-10-04 2020-10-[address] [facility] 1.2.840.114 [id number] Univers 11:44:00 12:54:00 Margaret Macias 350.1.13.10 ity [facility] 4.2.7.2.686 [facility] [phone] [address] 2020-09-29 2020-09-[address] [facility] 1.2.516.771 [id number] Univers 00:00:00 00:00:00 Sendil Tabatha Macias 350.1.13.10 ity [facility] 4.2.7.2.686 [facility] Professio [phone] De dical formerly [facility] 2020-09-22 2020-09-22 Outpatient R ALEXANDRA [facility] [id number] Univers 14:30:00 14:30:00 SENDIL lazaro [facility] 2020-08-25 2020-08-25 Outpatient Adams_R DMG DMG 15049-9 021 [facility] 11:32:00 11:32:00 0715 [facility] l [facility] 2020-08-25 2020-08-[address] [facility] 1.2.840.114 [id number] Univers 09:28:00 10:21:00 Margaret Macias 350.1.13.10 ity [facility] 4.2.7.2.686 [facility] [id number] [address] 2020-08-25 2020-08-[address] [facility] ERT [id number] Univers 09:28:00 10:21:00 MARGARET ity [facility] 2020-08-24 2020-08-24 Emergency Earl, K [facility] 1.2.840.114 [id number] Univers 14:43:00 15:59:00 Suzette Macias 350.1.13.10 i ty [place] [phone] [address] 2020-08-24 2020-08-24 Emergency X [facility] ERT [id number] Univers 14:43:00 15:59:00 ity [facility] 2020-08-24 2020-08-[address] [facility] 1.2.444.486 [id number] Univers 00:00:00 00:00:00 Sendil Tabatha Macias 350.1.13.10 ity [facility] [place] [phone] De dichi nal [address] [place] [address] 2020-08-12 2020-08-12 Outpatient R ALEXANDRA [facility] [id number] Univers 15:00:00 15:00:00 SENDIL [facility] 2020-08-12 2020-08-[address] [facility] 1.2.242.394 [id number] Univers 00:00:00 00:00:00 Sendil Tabatha Macias 350.1.13.10 ity [facility] [place] [phone] [facility] nal [address] [place] [address] 2020-08-04 2020-08-04 [place] [address]-7 021 [facility] 01:58:00 01:58:00 0624 Medica l Group 2020-07-28 2020-07-[address] [facility] 1.2.502.824 [id number] Univers 00:00:00 00:00:00 Sendil Tabatha Macias 350.1.13.10 ity [facility] [place] [phone] De dichi nal [address] [place] [address] 2020-07-28 2020-07-28 Orders Doctor WALLS 1.2.840.114 [id number] Univers 00:00:00 00:00:00 Only Unassigned, YEVGENIY 350.1.13.10 ity [facility] [place] [facility] 4.2.7.2.686 Ian as [phone] [facility] [address] [place] 2020-07-27 2020-07-27 Telephone [facility] 1.2.843.379 [id number] Univers 00:00:00 00:00:00 Sendiva Macias 350.1.13.10 [place] [phone] [address] 2020-07-27 2020-07-27 Telephone [facility] 1.2.163.764 [id number] Univers 00:00:00 00:00:00 Bonny Macias 350.1.13.10 [place] [phone] [address] 2020-07-26 2020-07-26 Office [facility] 1.2.840.114 [id number] Univers 14:25:36 15:12:16 Visit Bonny Macias 350.1.13.10 it[place] [phone] [address] 2020-07-26 2020-07-26 Outpatient R [facility]LEXANDRA [facility] [id number] Univers 14:30:00 14:30:00 SENDIL ity of [facility] 2020-07-20 2020-07-20 Emergency [place], [facility] 1.2.142.470 [id number] Univers 10:25:00 15:52:00 Dawn Macias 350.1.13.10 i ty [place] [phone] [facility] [address] [place] 2020-07-20 2020-07-20 Emergency X [facility] ERT [id number] Univers 10:16:00 10:16:00 ity of [facility] 2020-07-18 2020-07-18 Outpatient Tumelson_A DMG DMG 4770 [facility] 01:42:00 01:42:00 0607 [facility] l [facility] 2020-07-01 2020-07-01 Emergency [facility] 1.2.840.114 [id number] 13:47:00 16:34:00 Nadegeo Endy [facility] 350.1.13.10 [place] 4.2.7.2.686 [place] [phone] [facility] 2020-07-01 2020-07-01 Emergency [facility] 1.2.840.114 [id number] [facility] 13:47:00 16:34:00 Nadegeo Endy [facility] 350.1.13.10 [facility] 4.2.7.2.686 [facility] [phone] [address] 2020-07-01 2020-07-01 Emergency X [facility] ERT [id number] Univers 13:47:00 16:34:00 [facility] Results Test Description Test Time Test Comments Results Result Comments Source COMPREHENSIVE METABOLIC PANEL 2022-01-20 00:00:00 Test Item Value Reference Range Interpretation Comme nts GLUCOSE (test code = 2217) 74 MG/DL BUN (test code = 2208) 16 MG/DL CREATININE (test code = 2214) 0.96 MG/DL eGFR (2020 CKD-EPI) (test code = 01694) 69 ML/MIN/1.73 CALC BUN/CREAT (test code = 2235) 17 RATIO SODIUM (test code = 2231) 143 MEQ/L POTASSIUM (test code = 2228) 3.4 MEQ/L CHLORIDE (test code = 2215) 112 MEQ/L CARBON DIOXIDE (test code = 2206) 21 MEQ/L CALCIUM (test code = 2209) 10.0 MG/DL PROTEIN, TOTAL (test code = 2229) 10.3 G/DL ALBUMIN (test code = 2201) 4.0 G/DL CALC GLOBULIN (test code = 2240) 6.3 G/DL CALC A/G RATIO (test code = 2234) 0.6 RATIO BILIRUBIN, TOTAL (test code = 2207) 0.5 MG/DL ALKALINE PHOSPHATASE (test code = 2204) 93 U/L AST (test code = 2218) 29 U/L ALT (test code = 2219) 13 U/L COMPREHENSIVE METABOLIC [id number] 00:00:00 Test Item Value Reference Range Interpretation Comments GLUCOSE (test code = 2217) 74 MG/DL BUN (test code = 2208) 16 MG/DL CREATININE (test code = 2214) 0.96 MG/DL eGFR (2020 CKD-EPI) (test code 69 ML/MIN/1.73 = 00930) CALC BUN/CREAT (test code = 17 RATIO 2235) SODIUM (test code = 2231) 143 MEQ/L POTASSIUM (test code = 2228) 3.4 MEQ/L CHLORIDE (test code = 2215) 112 MEQ/L CARBON DIOXIDE (test code = 21 MEQ/L 2205) CALCIUM (test code = 2209) 10.0 MG/DL PROTEIN, TOTAL (test code = 10.3 G/DL 222) ALBUMIN (test code = 2201) 4.0 G/DL CALC GLOBULIN (test code = 6.3 G/DL 2240) CALC A/G RATIO (test code = 0.6 RATIO 2234) BILIRUBIN, TOTAL (test code = 0.5 MG/DL 2206) ALKALINE PHOSPHATASE (test 93 U/L code = 2204) AST (test code = 2218) 29 U/L ALT (test code = 2219) 13 U/L LIPID [id number] 00:00:00 Test Item Value Reference Range Interpretation Comments CHOLESTEROL (test code = 2210) 183 MG/DL TRIGLYCERIDES (test code = 2232) 69 MG/DL HDL CHOLESTEROL (test code = 2220) 93 MG/DL CALC LDL CHOL (test code = 2237) 75 MG/DL RISK RATIO LDL/HDL (test code = 0.81 RATIO 2238) LIPID [id number] 00:00:00 Test Item Value Reference Range Interpretation Comments CHOLESTEROL (test code = 2210) 183 MG/DL TRIGLYCERIDES (test code = 2232) 69 MG/DL HDL CHOLESTEROL (test code = 2220) 93 MG/DL CALC LDL CHOL (test code = 2237) 75 MG/DL RISK RATIO LDL/HDL (test code = 0.81 RATIO 2238) CULTURE, [id number] 09:14:59SPECIMEN NUMBER: [id number] CULTURE, URINE SPECIMEN NUMBER: [id number] SPECIMEN COMMENT: URINE SOURCE:URINE REPORT STATUS: FINAL FINAL REPORT: 07/05/2021 >100,000 CFU/ML MIXED MICROBIAL POPULATION PRE SENT, NO PREDOMINATING ORGANISMS;PROBABLE CONTAMINANTS.CULTURE, [id number] 00:00:00 Test Item Value Reference Range Interpretation Comments CULTURE, URINE (test SPECIMEN NUMBER: code = 05584) [id number] CULTURE, [id number] 00:00:00 Test Item Value Reference Range Interpretation Comments CULTURE, URINE (test SPECIMEN NUMBER: code = 47910) [id number] CULTURE, [id number] 00:00:00 Test Item Value Reference Range Interpretation Comments CULTURE, URINE (test SPECIMEN NUMBER: code = 54238) [id number] CULTURE, [id number] 00:00:00 Test Item Value Reference Range Interpretation Comments CULTURE, URINE (test SPECIMEN NUMBER: code = 63113) [id number] CULTURE, [id number] 00:00:00 Test Item Value Reference Range Interpretation Comments CULTURE, URINE (test SPECIMEN NUMBER: code = 73233) [id number] CULTURE, [id number] 00:00:00 Test Item Value Reference Range Interpretation Comments CULTURE, URINE (test SPECIMEN NUMBER: code = 91825) [id number] CULTURE, [id number] 00:00:00 Test Item Value Reference Range Interpretation Comments CULTURE, URINE (test SPECIMEN NUMBER: code = 59083) [id number] VAGINAL PATHOGENS DNA [id number] 15:31:31 Test Item Value Reference Range Interpretation Comments DIANNA SPECIES (test NEGATIVE NEGATIVE code = 66180) G. VAGINALIS (test NEGATIVE NEGATIVE code = 70167) T. VAGINALIS (test NEGATIVE NEGATIVE UNLESS O THERWISE code = 74087) INDICATED, ALL TESTING PERFORMED [facility] [address] [place] [address] 4 LABORATORY DIRE CTOR: ALYSSIA JETT M.D. CLIA NUMBER [id number] [place] [id number] VAGINAL PATHOGENS DNA [id number] 00:00:00 Test Item Value Reference Range Interpretation Comments DIANNA SPECIES (test code = 97009) NEGATIVE G. VAGINALIS (test code = 74612) NEGATIVE T. VAGINALIS (test code = ) NEGATIVE VAGINAL PATHOGENS DNA [id number] 00:00:00 Test Item Value Reference Range Interpretation Comments DIANNA SPECIES (test code = ) NEGATIVE G. VAGINALIS (test code = 49572) NEGATIVE T. VAGINALIS (test code = 96240) NEGATIVE VAGINAL PATHOGENS DNA [id number] 00:00:00 Test Item Value Reference Range Interpretation Comments DIANNA SPECIES (test code = 78801) NEGATIVE G. VAGINALIS (test code = 29169) NEGATIVE T. VAGINALIS (test code = 48185) NEGATIVE VAGINAL PATHOGENS DNA [id number] 00:00:00 Test Item Value Reference Range Interpretation Comments DIANNA SPECIES (test code = 63595) NEGATIVE G. VAGINALIS (test code = 46273) NEGATIVE T. VAGINALIS (test code = 75644) NEGATIVE VAGINAL PATHOGENS DNA [id number] 00:00:00 Test Item Value Reference Range Interpretation Comments DIANNA SPECIES (test code = 59320) NEGATIVE G. VAGINALIS (test code = 64969) NEGATIVE T. VAGINALIS (test code = 72803) NEGATIVE VAGINAL PATHOGENS DNA [id number] 00:00:00 Test Item Value Reference Range Interpretation Comments DIANNA SPECIES (test code = 19569) NEGATIVE G. VAGINALIS (test code = 63731) NEGATIVE T. VAGINALIS (test code = 53847) NEGATIVE VAGINAL PATHOGENS DNA [id number] 00:00:00 Test Item Value Reference Range Interpretation Comments DIANNA SPECIES (test code = ) NEGATIVE G. VAGINALIS (test code = 16159) NEGATIVE T. VAGINALIS (test code = 27195) NEGATIVE CULTURE, [id number] 12:43:02SPECIMEN NUMBER: [id number] CULTURE, URINE SPECIMEN NUMBER: [id number] SPECIMEN COMMENT: URINE SOURCE:URINE REPORT STATUS: FINAL ISOLATE NUMBER 1: ORGANISM: 04/28/2021 10-50,000 CFU/ML ENTEROCOCCUS SPECI ES (GROUP D) IDENTIFICATION: 04/29/2021 ENTEROCOCCUS SPECIES (GROUP D) ENTEROCOCCUS SP. AMPICILLIN SENSITIVE <=2CIPROFLOXACIN SENSITIVE <=1LEVOFLOXACIN SENSITIVE 1NITROFURANTOIN SENSITIVE <=32TETRACYCLINE RESISTANT >8VANCOMYCIN SENSITIVE 2 NOTE: NUMBERS DISPLAYED REPRESENTMINIMUM INHIBITORY CONCENTRATION (CHAYO) WHICH IS EXPRESSED IN MCG/ML.CULTURE, [id number] 00:00:00 Test Item Value Reference Range Interpretation Comments CULTURE, URINE (test SPECIMEN NUMBER: code = 16511) [id number] CULTURE, [id number] 00:00:00 Test Item Value Reference Range Interpretation Comments CULTURE, URINE (test SPECIMEN NUMBER: code = 16371) [id number] CULTURE, [id number] 00:00:00 Test Item Value Reference Range Interpretation Comments CULTURE, URINE (test SPECIMEN NUMBER: code = 63040) [id number] CULTURE, [id number] 00:00:00 Test Item Value Reference Range Interpretation Comments CULTURE, URINE (test SPECIMEN NUMBER: code = 92494) [id number] CULTURE, [id number] 00:00:00 Test Item Value Reference Range Interpretation Comments CULTURE, URINE (test SPECIMEN NUMBER: code = 38582) [id number] CULTURE, [id number] 00:00:00 Test Item Value Reference Range Interpretation Comments CULTURE, URINE (test SPECIMEN NUMBER: code = 30910) [id number] CULTURE, [id number] 00:00:00 Test Item Value Reference Range Interpretation Comments CULTURE, URINE (test SPECIMEN NUMBER: code = 18816) [id number] URINALYSIS WITH [id number] 07:51:12 Test Item Value Reference Range Interpretation [...] ed message] code = 1510) The system Equals6 generated this result transmitted ref erence range: [...] CELLS (test 0-5 /HPF 0-10 code = 78177) BACTERIA (test code = 3+ NONE SEEN A 1515) CASTS, HYALINE (test TRACE NONE-TRACE UNLESS OTHERWISE code = 1517) INDICATED, ALL TESTING PERFORMED [facility], [place]. [address] [place] [address] [facility] DIRECTOR: ALYSSIA FRASER M.D. CLIA NUMBER [id number] CAP ACCREDITATION N O. [id number] URINALYSIS WITH [id number] 00:00:00 Test Item Value Reference Range Interpretation [...] EPITHELIAL CELLS (test code = 0-5 /HPF 70073) BACTERIA (test code = 1515) 3+ CASTS, HYALINE (test code = 1517) TRACE URINALYSIS WITH [id number] 00:00:00 Test Item Value Reference Range Interpretation [...] EPITHELIAL CELLS (test code = 0-5 /HPF 83406) BACTERIA (test code = 1515) 3+ CASTS, HYALINE (test code = 1517) TRACE URINALYSIS WITH [id number] 00:00:00 Test Item Value Reference Range Interpretation [...] EPITHELIAL CELLS (test code = 0-5 /HPF 53347) BACTERIA (test code = 1515) 3+ CASTS, HYALINE (test code = 1517) TRACE URINALYSIS WITH [id number] 00:00:00 Test Item Value Reference Range Interpretation [...] EPITHELIAL CELLS (test code = 0-5 /HPF 95894) BACTERIA (test code = 1515) 3+ CASTS, HYALINE (test code = 1517) TRACE URINALYSIS WITH [id number] 00:00:00 Test Item Value Reference Range Interpretation [...] EPITHELIAL CELLS (test code = 0-5 /HPF 28851) BACTERIA (test code = 1515) 3+ CASTS, HYALINE (test code = 1517) TRACE URINALYSIS WITH [id number] 00:00:00 Test Item Value Reference Range Interpretation [...] EPITHELIAL CELLS (test code = 0-5 /HPF 69620) BACTERIA (test code = 1515) 3+ CASTS, HYALINE (test code = 1517) TRACE URINALYSIS WITH [id number] 00:00:00 Test Item Value Reference Range Interpretation [...] EPITHELIAL CELLS (test code = 0-5 /HPF 69506) BACTERIA (test code = 1515) 3+ CASTS, HYALINE (test code = 1517) TRACE CBC W/AUTO [id number] 00:00:00 Test Item Value Reference Range Interpretation [...] NUCLEATED RBCS (test code = 0.00 K/UL 73079) COMMENTS (test code = 1016) (NOTE) CBC W/AUTO [id number] 00:00:00 Test Item Value Reference Range Interpretation [...] NUCLEATED RBCS (test code = 0.00 K/UL 02730) COMMENTS (test code = 1016) (NOTE) CBC W/AUTO [id number] 00:00:00 Test Item Value Reference Range Interpretation [...] NUCLEATED RBCS (test code = 0.00 K/UL 26701) COMMENTS (test code = 1016) (NOTE) LIPID [id number] 00:00:00 Test Item Value Reference Range Interpretation Comments CHOLESTEROL (test code = 2210) 174 MG/DL TRIGLYCERIDES (test code = 2232) 63 MG/DL HDL CHOLESTEROL (test code = 2220) 87 MG/DL CALC LDL CHOL (test code = 2237) 73 MG/DL RISK RATIO LDL/HDL (test code = 0.84 RATIO 2238) LIPID [id number] 00:00:00 Test Item Value Reference Range Interpretation Comments CHOLESTEROL (test code = 2210) 174 MG/DL TRIGLYCERIDES (test code = 2232) 63 MG/DL HDL CHOLESTEROL (test code = 2220) 87 MG/DL CALC LDL CHOL (test code = 2237) 73 MG/DL RISK RATIO LDL/HDL (test code = 0.84 RATIO 2238) COMPREHENSIVE METABOLIC [id number] 00:00:00 Test Item Value Reference Range Interpretation Comments GLUCOSE (test code = 2217) 80 MG/DL BUN (test code = 2208) 18 MG/DL CREATININE (test code = 2214) 1.06 MG/DL eGFR AMER. (test code 67 ML/MIN/1.73 = 04379) eGFR NON- AMER. (test 58 ML/MIN/1.73 code = 55461) CALC BUN/CREAT (test code = 17 RATIO 2235) SODIUM (test code = 2231) 139 MEQ/L POTASSIUM (test code = 2228) 3.8 MEQ/L CHLORIDE (test code = 2215) 109 MEQ/L CARBON DIOXIDE (test code = 20 MEQ/L 2205) CALCIUM (test code = 2209) 9.9 MG/DL [...] code = 2219) 54 U/L COMPREHENSIVE METABOLIC [id number] 00:00:00 Test Item Value Reference Range Interpretation Comments GLUCOSE (test code = 2217) 80 MG/DL BUN (test code = 2208) 18 MG/DL CREATININE (test code = 2214) 1.06 MG/DL eGFR AMER. (test code 67 ML/MIN/1.73 = 25455) eGFR NON- AMER. (test 58 ML/MIN/1.73 code = 06260) CALC BUN/CREAT (test code = 17 RATIO 2235) SODIUM (test code = 2231) 139 MEQ/L POTASSIUM (test code = 2228) 3.8 MEQ/L CHLORIDE (test code = 2215) 109 MEQ/L CARBON DIOXIDE (test code = 20 MEQ/L 2205) CALCIUM (test code = 2209) 9.9 MG/DL [...] code = 2219) 54 U/L CBC W/AUTO [id number] 00:00:00 Test Item Value Reference Range Interpretation [...] NUCLEATED RBCS (test code = 0.00 K/UL 46797) COMMENTS (test code = 1016) (NOTE) CBC W/AUTO [id number] 00:00:00 Test Item Value Reference Range Interpretation [...] NUCLEATED RBCS (test code = 0.00 K/UL 79705) COMMENTS (test code = 1016) (NOTE) CBC W/AUTO [id number] 00:00:00 Test Item Value Reference Range Interpretation [...] NUCLEATED RBCS (test code = 0.00 K/UL 84015) COMMENTS (test code = 1016) (NOTE) LIPID [id number] 00:00:00 Test Item Value Reference Range Interpretation Comments CHOLESTEROL (test code = 2210) 174 MG/DL TRIGLYCERIDES (test code = 2232) 63 MG/DL HDL CHOLESTEROL (test code = 2220) 87 MG/DL CALC LDL CHOL (test code = 2237) 73 MG/DL RISK RATIO LDL/HDL (test code = 0.84 RATIO 2238) LIPID [id number] 00:00:00 Test Item Value Reference Range Interpretation Comments CHOLESTEROL (test code = 2210) 174 MG/DL TRIGLYCERIDES (test code = 2232) 63 MG/DL HDL CHOLESTEROL (test code = 2220) 87 MG/DL CALC LDL CHOL (test code = 2237) 73 MG/DL RISK RATIO LDL/HDL (test code = 0.84 RATIO 2238) COMPREHENSIVE METABOLIC [id number] 00:00:00 Test Item Value Reference Range Interpretation Comments GLUCOSE (test code = 2217) 80 MG/DL BUN (test code = 2208) 18 MG/DL CREATININE (test code = 2214) 1.06 MG/DL eGFR AMER. (test code 67 ML/MIN/1.73 = 14866) eGFR NON- AMER. (test 58 ML/MIN/1.73 code = 80485) CALC BUN/CREAT (test code = 17 RATIO 2235) SODIUM (test code = 2231) 139 MEQ/L POTASSIUM (test code = 2228) 3.8 MEQ/L CHLORIDE (test code = 2215) 109 MEQ/L CARBON DIOXIDE (test code = 20 MEQ/L 2205) CALCIUM (test code = 2209) 9.9 MG/DL [...] code = 2219) 54 U/L COMPREHENSIVE METABOLIC [id number] 00:00:00 Test Item Value Reference Range Interpretation Comments GLUCOSE (test code = 2217) 80 MG/DL BUN (test code = 2208) 18 MG/DL CREATININE (test code = 2214) 1.06 MG/DL eGFR AMER. (test code 67 ML/MIN/1.73 = 41285) eGFR NON- AMER. (test 58 ML/MIN/1.73 code = 58557) CALC BUN/CREAT (test code = 17 RATIO 2235) SODIUM (test code = 2231) 139 MEQ/L POTASSIUM (test code = 2228) 3.8 MEQ/L CHLORIDE (test code = 2215) 109 MEQ/L CARBON DIOXIDE (test code = 20 MEQ/L 2205) CALCIUM (test code = 2209) 9.9 MG/DL PROTEIN, TOTAL (test code = 9.8 G/DL 2228) ALBUMIN (test code = 2201) 3.9 G/DL CALC GLOBULIN (test code = 5.9 G/DL 2239) CALC A/G RATIO (test code = 0.7 RATIO 2233) BILIRUBIN, TOTAL (test code = 0.2 MG/DL 2206) ALKALINE PHOSPHATASE (test 79 U/L code = 2204) AST (test code = 2218) 75 U/L ALT (test code = 2219) 54 U/L CBC W/AUTO [id number] 00:00:00 Test Item Value Reference Range Interpretation [...] NUCLEATED RBCS (test code = 0.00 K/UL 60551) COMMENTS (test code = 1016) (NOTE) CBC W/AUTO [id number] 00:00:00 Test Item Value Reference Range Interpretation [...] NUCLEATED RBCS (test code = 0.00 K/UL 18358) COMMENTS (test code = 1016) (NOTE) LIPID [id number] 00:00:00 Test Item Value Reference Range Interpretation Comments CHOLESTEROL (test code = 2210) 174 MG/DL TRIGLYCERIDES (test code = 2232) 63 MG/DL HDL CHOLESTEROL (test code = 2220) 87 MG/DL CALC LDL CHOL (test code = 2237) 73 MG/DL RISK RATIO LDL/HDL (test code = 0.84 RATIO 2238) COMPREHENSIVE METABOLIC [id number] 00:00:00 Test Item Value Reference Range Interpretation Comments GLUCOSE (test code = 2217) 80 MG/DL BUN (test code = 2208) 18 MG/DL CREATININE (test code = 2214) 1.06 MG/DL eGFR AMER. (test code 67 ML/MIN/1.73 = 17016) eGFR NON- AMER. (test 58 ML/MIN/1.73 code = 63731) CALC BUN/CREAT (test code = 17 RATIO 2234) SODIUM (test code = 2231) 139 MEQ/L POTASSIUM (test code = 2228) 3.8 MEQ/L CHLORIDE (test code = 2215) 109 MEQ/L CARBON DIOXIDE (test code = 20 MEQ/L 2205) CALCIUM (test code = 2209) 9.9 MG/DL PROTEIN, TOTAL (test code = 9.8 G/DL 2228) ALBUMIN (test code = 2201) 3.9 G/DL CALC GLOBULIN (test code = 5.9 G/DL 2239) CALC A/G RATIO (test code = 0.7 RATIO 2233) BILIRUBIN, TOTAL (test code = 0.2 MG/DL 2206) ALKALINE PHOSPHATASE (test 79 U/L code = 2204) AST (test code = 2218) 75 U/L ALT (test code = 2219) 54 U/L CBC W/AUTO [id number] 00:00:00 Test Item Value Reference Range Interpretation [...] NUCLEATED RBCS (test code = 0.00 K/UL 29585) COMMENTS (test code = 1016) (NOTE) CBC W/AUTO [id number] 00:00:00 Test Item Value Reference Range Interpretation [...] NUCLEATED RBCS (test code = 0.00 K/UL 78698) COMMENTS (test code = 1016) (NOTE) CBC W/AUTO [id number] 00:00:00 Test Item Value Reference Range Interpretation [...] NUCLEATED RBCS (test code = 0.00 K/UL 66824) COMMENTS (test code = 1016) (NOTE) LIPID [id number] 00:00:00 Test Item Value Reference Range Interpretation Comments CHOLESTEROL (test code = 2210) 174 MG/DL TRIGLYCERIDES (test code = 2232) 63 MG/DL HDL CHOLESTEROL (test code = 2220) 87 MG/DL CALC LDL CHOL (test code = 2237) 73 MG/DL RISK RATIO LDL/HDL (test code = 0.84 RATIO 2238) LIPID [id number] 00:00:00 Test Item Value Reference Range Interpretation Comments CHOLESTEROL (test code = 2210) 174 MG/DL TRIGLYCERIDES (test code = 2232) 63 MG/DL HDL CHOLESTEROL (test code = 2220) 87 MG/DL CALC LDL CHOL (test code = 2237) 73 MG/DL RISK RATIO LDL/HDL (test code = 0.84 RATIO 2238) COMPREHENSIVE METABOLIC [id number] 00:00:00 Test Item Value Reference Range Interpretation Comments GLUCOSE (test code = 2217) 80 MG/DL BUN (test code = 2208) 18 MG/DL CREATININE (test code = 2214) 1.06 MG/DL eGFR AMER. (test code 67 ML/MIN/1.73 = 37317) eGFR NON- AMER. (test 58 ML/MIN/1.73 code = 07346) CALC BUN/CREAT (test code = 17 RATIO 2235) SODIUM (test code = 2231) 139 MEQ/L POTASSIUM (test code = 2228) 3.8 MEQ/L CHLORIDE (test code = 2215) 109 MEQ/L CARBON DIOXIDE (test code = 20 MEQ/L 2205) CALCIUM (test code = 2209) 9.9 MG/DL [...] code = 2219) 54 U/L COMPREHENSIVE METABOLIC [id number] 00:00:00 Test Item Value Reference Range Interpretation Comments GLUCOSE (test code = 2217) 80 MG/DL BUN (test code = 2208) 18 MG/DL CREATININE (test code = 2214) 1.06 MG/DL eGFR AMER. (test code 67 ML/MIN/1.73 = 59423) eGFR NON- AMER. (test 58 ML/MIN/1.73 code = 14179) CALC BUN/CREAT (test code = 17 RATIO 2235) SODIUM (test code = 2231) 139 MEQ/L POTASSIUM (test code = 2228) 3.8 MEQ/L CHLORIDE (test code = 2215) 109 MEQ/L CARBON DIOXIDE (test code = 20 MEQ/L 2205) CALCIUM (test code = 2209) 9.9 MG/DL PROTEIN, TOTAL (test code = 9.8 G/DL 2228) ALBUMIN (test code = 2201) 3.9 G/DL CALC GLOBULIN (test code = 5.9 G/DL 2239) CALC A/G RATIO (test code = 0.7 RATIO 2233) BILIRUBIN, TOTAL (test code = 0.2 MG/DL 2206) ALKALINE PHOSPHATASE (test 79 U/L code = 220) AST (test code = 2218) 75 U/L ALT (test code = 2219) 54 U/L SARS-CoV-2 (COVID-19) by RT-PCR (HIGH RISK)2020-01-21 00:00:00 Test Item Value Reference Range Interpretation Comments SARS-CoV-2 INTERPRETATION (test NEGATIVE code = 77049) SOURCE (test code = 46378) NOT SPECIFIED SARS-CoV-2 (COVID-19) by RT-PCR (HIGH RISK)2020-01-21 00:00:00 Test Item Value Reference Range Interpretation Comments SARS-CoV-2 INTERPRETATION (test NEGATIVE code = 24700) SOURCE (test code = 13144) NOT SPECIFIED SARS-CoV-2 (COVID-19) by RT-PCR (HIGH RISK)2020-01-21 00:00:00 Test Item Value Reference Range Interpretation Comments SARS-CoV-2 INTERPRETATION (test NEGATIVE code = 69510) SOURCE (test code = 98692) NOT SPECIFIED SARS-CoV-2 (COVID-19) by RT-PCR (HIGH RISK)2020-01-21 00:00:00 Test Item Value Reference Range Interpretation Comments SARS-CoV-2 INTERPRETATION (test NEGATIVE code = 03131) SOURCE (test code = 04945) NOT SPECIFIED SARS-CoV-2 (COVID-19) by RT-PCR (HIGH RISK)2020-01-21 00:00:00 Test Item Value Reference Range Interpretation Comments SARS-CoV-2 INTERPRETATION (test NEGATIVE code = 21069) SOURCE (test code = 69304) NOT SPECIFIED SARS-CoV-2 (COVID-19) by RT-PCR (HIGH RISK)2020-01-21 00:00:00 Test Item Value Reference Range Interpretation Comments SARS-CoV-2 INTERPRETATION (test NEGATIVE code = 11207) SOURCE (test code = 73914) NOT SPECIFIED SARS-CoV-2 (COVID-19) by RT-PCR (HIGH RISK)2020-01-21 00:00:00 Test Item Value Reference Range Interpretation Comments SARS-CoV-2 INTERPRETATION (test NEGATIVE code = 96793) SOURCE (test code = 28269) NOT SPECIFIED COMPREHENSIVE METABOLIC [id number] 00:00:00 Test Item Value Reference Range Interpretation Comments GLUCOSE (test code = 2217) 86 MG/DL BUN (test code = 2208) 16 MG/DL CREATININE (test code = 2214) 0.90 MG/DL eGFR AMER. (test code 83 ML/MIN/1.73 = 64309) eGFR NON- AMER. (test 71 ML/MIN/1.73 code = 52965) CALC BUN/CREAT (test code = 18 RATIO 2235) SODIUM (test code = 2231) 139 MEQ/L POTASSIUM (test code = 2228) 4.1 MEQ/L CHLORIDE (test code = 2215) 110 MEQ/L CARBON DIOXIDE (test code = 19 MEQ/L 6) CALCIUM (test code = 2209) 10.0 MG/DL PROTEIN, TOTAL (test code = 9.5 G/DL 2229) ALBUMIN (test code = 2201) 4.1 G/DL CALC GLOBULIN (test code = 5.4 G/DL 2240) CALC A/G RATIO (test code = 0.8 RATIO 2234) BILIRUBIN, TOTAL (test code = 0.4 MG/DL 2207) ALKALINE PHOSPHATASE (test 80 U/L code = 2204) AST (test code = 2218) 38 U/L ALT (test code = 2219) 29 U/L COMPREHENSIVE METABOLIC [id number] 00:00:00 Test Item Value Reference Range Interpretation Comments GLUCOSE (test code = 2217) 86 MG/DL BUN (test code = 2208) 16 MG/DL CREATININE (test code = 2214) 0.90 MG/DL eGFR AMER. (test code 83 ML/MIN/1.73 = 57885) eGFR NON- AMER. (test 71 ML/MIN/1.73 code = 53057) CALC BUN/CREAT (test code = 18 RATIO [...] code = 2219) 29 U/L CBC W/AUTO [id number] 00:00:00 Test Item Value Reference Range Interpretation [...] code = 1015) 186 K/UL CBC W/AUTO [id number] 00:00:00 Test Item Value Reference Range Interpretation [...] code = 1015) 186 K/UL CBC W/AUTO [id number] 00:00:00 Test Item Value Reference Range Interpretation [...] code = 1015) 186 K/UL COMPREHENSIVE METABOLIC [id number] 00:00:00 Test Item Value Reference Range Interpretation Comments GLUCOSE (test code = 2217) 86 MG/DL BUN (test code = 2208) 16 MG/DL CREATININE (test code = 2214) 0.90 MG/DL eGFR AMER. (test code 83 ML/MIN/1.73 = 49747) eGFR NON- AMER. (test 71 ML/MIN/1.73 code = 06633) CALC BUN/CREAT (test code = 18 RATIO [...] CALC GLOBULIN (test code = 5.4 G/DL 224) CALC A/G RATIO (test code = 0.8 RATIO 2234) BILIRUBIN, TOTAL (test code = 0.4 MG/DL 7) ALKALINE PHOSPHATASE (test 80 U/L code = 2204) AST (test code = 2218) 38 U/L ALT (test code = 2219) 29 U/L COMPREHENSIVE METABOLIC [id number] 00:00:00 Test Item Value Reference Range Interpretation Comments GLUCOSE (test code = 2217) 86 MG/DL BUN (test code = 2208) 16 MG/DL CREATININE (test code = 2214) 0.90 MG/DL eGFR AMER. (test code 83 ML/MIN/1.73 = 03201) eGFR NON- AMER. (test 71 ML/MIN/1.73 code = 47197) CALC BUN/CREAT (test code = 18 RATIO [...] A/G RATIO (test code = 0.8 RATIO 2234) BILIRUBIN, TOTAL (test code = 0.4 MG/DL 2206) ALKALINE PHOSPHATASE (test 80 U/L code = 2204) AST (test code = 2218) 38 U/L ALT (test code = 2219) 29 U/L CBC W/AUTO [id number] 00:00:00 Test Item Value Reference Range Interpretation [...] code = 1015) 186 K/UL CBC W/AUTO [id number] 00:00:00 Test Item Value Reference Range Interpretation [...] code = 1015) 186 K/UL CBC W/AUTO [id number] 00:00:00 Test Item Value Reference Range Interpretation [...] code = 1015) 186 K/UL COMPREHENSIVE METABOLIC [id number] 00:00:00 Test Item Value Reference Range Interpretation Comments GLUCOSE (test code = 2217) 86 MG/DL BUN (test code = 2208) 16 MG/DL CREATININE (test code = 2214) 0.90 MG/DL eGFR AMER. (test code 83 ML/MIN/1.73 = 19067) eGFR NON- AMER. (test 71 ML/MIN/1.73 code = 15216) CALC BUN/CREAT (test code = 18 RATIO 2235) SODIUM (test code = 2231) 139 MEQ/L POTASSIUM (test code = 2228) 4.1 MEQ/L CHLORIDE (test code = 2215) 110 MEQ/L CARBON DIOXIDE (test code = 19 MEQ/L 220) CALCIUM (test code = 2209) 10.0 MG/DL PROTEIN, TOTAL (test code = 9.5 G/DL 2228) ALBUMIN (test code = 2201) 4.1 G/DL CALC GLOBULIN (test code = 5.4 G/DL 224) CALC A/G RATIO (test code = 0.8 RATIO 2233) BILIRUBIN, TOTAL (test code = 0.4 MG/DL 2206) ALKALINE PHOSPHATASE (test 80 U/L code = 2204) AST (test code = 2218) 38 U/L ALT (test code = 2219) 29 U/L CBC W/AUTO [id number] 00:00:00 Test Item Value Reference Range Interpretation [...] code = 1015) 186 K/UL CBC W/AUTO [id number] 00:00:00 Test Item Value Reference Range Interpretation [...] code = 1015) 186 K/UL COMPREHENSIVE METABOLIC [id number] 00:00:00 Test Item Value Reference Range Interpretation Comments GLUCOSE (test code = 2217) 86 MG/DL BUN (test code = 2208) 16 MG/DL CREATININE (test code = 2214) 0.90 MG/DL eGFR AMER. (test code 83 ML/MIN/1.73 = 41995) eGFR NON- AMER. (test 71 ML/MIN/1.73 code = 93484) CALC BUN/CREAT (test code = 18 RATIO 2235) SODIUM (test code = 2231) 139 MEQ/L POTASSIUM (test code = 2228) 4.1 MEQ/L CHLORIDE (test code = 2215) 110 MEQ/L CARBON DIOXIDE (test code = 19 MEQ/L 2206) CALCIUM (test code = 2209) 10.0 MG/DL PROTEIN, TOTAL (test code = 9.5 G/DL 222) ALBUMIN (test code = 2201) 4.1 G/DL CALC GLOBULIN (test code = 5.4 G/DL 2240) CALC A/G RATIO (test code = 0.8 RATIO 2234) BILIRUBIN, TOTAL (test code = 0.4 MG/DL 220) ALKALINE PHOSPHATASE (test 80 U/L code = 2204) AST (test code = 2218) 38 U/L ALT (test code = 2219) 29 U/L COMPREHENSIVE METABOLIC [id number] 00:00:00 Test Item Value Reference Range Interpretation Comments GLUCOSE (test code = 2217) 86 MG/DL BUN (test code = 2208) 16 MG/DL CREATININE (test code = 2214) 0.90 MG/DL eGFR AMER. (test code 83 ML/MIN/1.73 = 08033) eGFR NON- AMER. (test 71 ML/MIN/1.73 code = 32601) CALC BUN/CREAT (test code = 18 RATIO [...] code = 2219) 29 U/L CBC W/AUTO [id number] 00:00:00 Test Item Value Reference Range Interpretation [...] code = 1015) 186 K/UL CBC W/AUTO [id number] 00:00:00 Test Item Value Reference Range Interpretation [...] code = 1015) 186 K/UL CBC W/AUTO [id number] 00:00:00 Test Item Value Reference Range Interpretation [...] code = 1015) 186 K/UL CBC W/AUTO [id number] 00:00:00 Test Item Value Reference Range Interpretation [...] (test code = 1016) (NOTE) CBC W/AUTO [id number] 00:00:00 Test Item Value Reference Range Interpretation [...] (test code = 1016) (NOTE) CBC W/AUTO [id number] 00:00:00 Test Item Value Reference Range Interpretation [...] (test code = 1016) (NOTE) CBC W/AUTO [id number] 00:00:00 Test Item Value Reference Range Interpretation [...] (test code = 1016) (NOTE) CBC W/AUTO [id number] 00:00:00 Test Item Value Reference Range Interpretation [...] (test code = 1016) (NOTE) CBC W/AUTO [id number] 00:00:00 Test Item Value Reference Range Interpretation [...] (test code = 1016) (NOTE) CBC W/AUTO [id number] 00:00:00 Test Item Value Reference Range Interpretation [...] (test code = 1016) (NOTE) CBC W/AUTO [id number] 00:00:00 Test Item Value Reference Range Interpretation [...] (test code = 1016) (NOTE) CBC W/AUTO [id number] 00:00:00 Test Item Value Reference Range Interpretation [...] (test code = 1016) (NOTE) CBC W/AUTO [id number] 00:00:00 Test Item Value Reference Range Interpretation [...] (test code = 1016) (NOTE) CBC W/AUTO [id number] 00:00:00 Test Item Value Reference Range Interpretation [...] code = 1016) (NOTE) VAGINAL PATHOGENS DNA [id number] 00:00:00 Test Item Value Reference Range Interpretation Comments DIANNA SPECIES (test code = ) NEGATIVE G. VAGINALIS (test code = 71014) POSITIVE T. VAGINALIS (test code = 85281) NEGATIVE VAGINAL PATHOGENS DNA [id number] 00:00:00 Test Item Value Reference Range Interpretation Comments DIANNA SPECIES (test code = ) NEGATIVE G. VAGINALIS (test code = 44641) POSITIVE T. VAGINALIS (test code = 32468) NEGATIVE COMPREHENSIVE METABOLIC [id number] 00:00:00 Test Item Value Reference Range Interpretation Comments GLUCOSE (test code = 2217) 92 MG/DL BUN (test code = 2208) 20 MG/DL CREATININE (test code = 2214) 1.31 MG/DL eGFR AMER. (test code 53 ML/MIN/1.73 = 55235) eGFR NON- AMER. (test 45 ML/MIN/1.73 code = 24420) CALC BUN/CREAT (test code = 15 RATIO 223) SODIUM (test code = 2231) 140 MEQ/L [...] A/G RATIO (test code = 0.6 RATIO 223) BILIRUBIN, TOTAL (test code = 0.4 MG/DL 2206) ALKALINE PHOSPHATASE (test 88 U/L code = 2204) AST (test code = 2218) 32 U/L ALT (test code = 2219) 16 U/L COMPREHENSIVE METABOLIC [id number] 00:00:00 Test Item Value Reference Range Interpretation Comments GLUCOSE (test code = 2217) 92 MG/DL BUN (test code = 2208) 20 MG/DL CREATININE (test code = 2214) 1.31 MG/DL eGFR AMER. (test code 53 ML/MIN/1.73 = 66904) eGFR NON- AMER. (test 45 ML/MIN/1.73 code = 13039) CALC BUN/CREAT (test code = 15 RATIO 2235) SODIUM (test code = 2231) 140 MEQ/L POTASSIUM (test code = 2228) 4.0 MEQ/L CHLORIDE (test code = 2215) 107 MEQ/L CARBON DIOXIDE (test code = 22 MEQ/L 220) CALCIUM (test code = 2209) 10.1 MG/DL PROTEIN, TOTAL (test code = 10.4 G/DL 222) ALBUMIN (test code = 2201) 4.0 G/DL CALC GLOBULIN (test code = 6.4 G/DL 2240) CALC A/G RATIO (test code = 0.6 RATIO 2234) BILIRUBIN, TOTAL (test code = 0.4 MG/DL 2206) ALKALINE PHOSPHATASE (test 88 U/L code = 2204) AST (test code = 2218) 32 U/L ALT (test code = 2219) 16 U/L CBC W/AUTO [id number] 00:00:00 Test Item Value Reference Range Interpretation [...] (test code = 1016) (NOTE) CBC W/AUTO [id number] 00:00:00 Test Item Value Reference Range Interpretation [...] (test code = 1016) (NOTE) CBC W/AUTO [id number] 00:00:00 Test Item Value Reference Range Interpretation [...] code = 1016) (NOTE) VAGINAL PATHOGENS DNA [id number] 00:00:00 Test Item Value Reference Range Interpretation Comments DIANNA SPECIES (test code = ) NEGATIVE G. VAGINALIS (test code = ) POSITIVE T. VAGINALIS (test code = ) NEGATIVE VAGINAL PATHOGENS DNA [id number] 00:00:00 Test Item Value Reference Range Interpretation Comments DIANNA SPECIES (test code = ) NEGATIVE G. VAGINALIS (test code = ) POSITIVE T. VAGINALIS (test code = ) NEGATIVE COMPREHENSIVE METABOLIC [id number] 00:00:00 Test Item Value Reference Range Interpretation Comments GLUCOSE (test code = 7) 92 MG/DL BUN (test code = 2208) 20 MG/DL CREATININE (test code = 2214) 1.31 MG/DL eGFR AMER. (test code 53 ML/MIN/1.73 = 55551) eGFR NON- AMER. (test 45 ML/MIN/1.73 code = 09523) CALC BUN/CREAT (test code = 15 RATIO [...] code = 2219) 16 U/L COMPREHENSIVE METABOLIC [id number] 00:00:00 Test Item Value Reference Range Interpretation Comments GLUCOSE (test code = 2217) 92 MG/DL BUN (test code = 2208) 20 MG/DL CREATININE (test code = 2214) 1.31 MG/DL eGFR AMER. (test code 53 ML/MIN/1.73 = 19097) eGFR NON- AMER. (test 45 ML/MIN/1.73 code = 91724) CALC BUN/CREAT (test code = 15 RATIO 2235) SODIUM (test code = 2231) 140 MEQ/L POTASSIUM (test code = 2228) 4.0 MEQ/L CHLORIDE (test code = 2215) 107 MEQ/L CARBON DIOXIDE (test code = 22 MEQ/L 2205) CALCIUM (test code = 2209) 10.1 MG/DL PROTEIN, TOTAL (test code = 10.4 G/DL 9) ALBUMIN (test code = 2201) 4.0 G/DL CALC GLOBULIN (test code = 6.4 G/DL 2240) CALC A/G RATIO (test code = 0.6 RATIO 2233) BILIRUBIN, TOTAL (test code = 0.4 MG/DL 2206) ALKALINE PHOSPHATASE (test 88 U/L code = 2204) AST (test code = 2218) 32 U/L ALT (test code = 2219) 16 U/L CBC W/AUTO [id number] 00:00:00 Test Item Value Reference Range Interpretation [...] (test code = 1016) (NOTE) CBC W/AUTO [id number] 00:00:00 Test Item Value Reference Range Interpretation [...] (test code = 1016) (NOTE) CBC W/AUTO [id number] 00:00:00 Test Item Value Reference Range Interpretation [...] code = 1016) (NOTE) VAGINAL PATHOGENS DNA [id number] 00:00:00 Test Item Value Reference Range Interpretation Comments DIANNA SPECIES (test code = ) NEGATIVE G. VAGINALIS (test code = ) POSITIVE T. VAGINALIS (test code = ) NEGATIVE COMPREHENSIVE METABOLIC [id number] 00:00:00 Test Item Value Reference Range Interpretation Comments GLUCOSE (test code = 2217) 92 MG/DL BUN (test code = 2208) 20 MG/DL CREATININE (test code = 2214) 1.31 MG/DL eGFR AMER. (test code 53 ML/MIN/1.73 = 27302) eGFR NON- AMER. (test 45 ML/MIN/1.73 code = 20015) CALC BUN/CREAT (test code = 15 RATIO [...] code = 2219) 16 U/L CBC W/AUTO [id number] 00:00:00 Test Item Value Reference Range Interpretation [...] (test code = 1016) (NOTE) CBC W/AUTO [id number] 00:00:00 Test Item Value Reference Range Interpretation [...] code = 1016) (NOTE) VAGINAL PATHOGENS DNA [id number] 00:00:00 Test Item Value Reference Range Interpretation Comments DIANNA SPECIES (test code = ) NEGATIVE G. VAGINALIS (test code = 71534) POSITIVE T. VAGINALIS (test code = ) NEGATIVE VAGINAL PATHOGENS DNA [id number] 00:00:00 Test Item Value Reference Range Interpretation Comments DIANNA SPECIES (test code = ) NEGATIVE G. VAGINALIS (test code = 19500) POSITIVE T. VAGINALIS (test code = 33351) NEGATIVE COMPREHENSIVE METABOLIC [id number] 00:00:00 Test Item Value Reference Range Interpretation Comments GLUCOSE (test code = 2217) 92 MG/DL BUN (test code = 2208) 20 MG/DL CREATININE (test code = 2214) 1.31 MG/DL eGFR AMER. (test code 53 ML/MIN/1.73 = 57851) eGFR NON- AMER. (test 45 ML/MIN/1.73 code = 17700) CALC BUN/CREAT (test code = 15 RATIO [...] code = 2219) 16 U/L COMPREHENSIVE METABOLIC [id number] 00:00:00 Test Item Value Reference Range Interpretation Comments GLUCOSE (test code = 2217) 92 MG/DL BUN (test code = 2208) 20 MG/DL CREATININE (test code = 2214) 1.31 MG/DL eGFR AMER. (test code 53 ML/MIN/1.73 = 58760) eGFR NON- AMER. (test 45 ML/MIN/1.73 code = 59001) CALC BUN/CREAT (test code = 15 RATIO [...] code = 2219) 16 U/L CBC W/AUTO [id number] 00:00:00 Test Item Value Reference Range Interpretation [...] (test code = 1016) (NOTE) CBC W/AUTO [id number] 00:00:00 Test Item Value Reference Range Interpretation [...] (test code = 1016) (NOTE) CBC W/AUTO [id number] 00:00:00 Test Item Value Reference Range Interpretation [...] (test code = 1016) (NOTE) CBC W/AUTO [id number] 00:00:00 Test Item Value Reference Range Interpretation [...] code = 1015) 212 K/UL CBC W/AUTO [id number] 00:00:00 Test Item Value Reference Range Interpretation [...] code = 1015) 212 K/UL CBC W/AUTO [id number] 00:00:00 Test Item Value Reference Range Interpretation [...] (test code = 1015) 212 K/UL LIPID [id number] 00:00:00 Test Item Value Reference Range Interpretation Comments CHOLESTEROL (test code = 2210) 141 MG/DL TRIGLYCERIDES (test code = 2232) 71 MG/DL HDL CHOLESTEROL (test code = 2220) 69 MG/DL CALC LDL CHOL (test code = 2237) 58 MG/DL RISK RATIO LDL/HDL (test code = 0.84 RATIO 2238) LIPID [id number] 00:00:00 Test Item Value Reference Range Interpretation Comments CHOLESTEROL (test code = 2210) 141 MG/DL TRIGLYCERIDES (test code = 2232) 71 MG/DL HDL CHOLESTEROL (test code = 2220) 69 MG/DL CALC LDL CHOL (test code = 2237) 58 MG/DL RISK RATIO LDL/HDL (test code = 0.84 RATIO 2238) COMPREHENSIVE METABOLIC [id number] 00:00:00 Test Item Value Reference Range Interpretation Comments GLUCOSE (test code = 2217) 95 MG/DL BUN (test code = 2208) 21 MG/DL CREATININE (test code = 2214) 0.87 MG/DL eGFR AMER. (test code 87 ML/MIN/1.73 = 33637) eGFR NON- AMER. (test 75 ML/MIN/1.73 code = 55423) CALC BUN/CREAT (test code = 24 RATIO [...] code = 2219) 8 U/L COMPREHENSIVE METABOLIC [id number] 00:00:00 Test Item Value Reference Range Interpretation Comments GLUCOSE (test code = 2217) 95 MG/DL BUN (test code = 2208) 21 MG/DL CREATININE (test code = 2214) 0.87 MG/DL eGFR AMER. (test code 87 ML/MIN/1.73 = 79182) eGFR NON- AMER. (test 75 ML/MIN/1.73 code = 84728) CALC BUN/CREAT (test code = 24 RATIO [...] (test code = 2219) 8 U/L URIC [id number] 00:00:00 Test Item Value Reference Range Interpretation Comments URIC ACID (test code = 2233) 8.5 MG/DL URIC [id number] 00:00:00 Test Item Value Reference Range Interpretation Comments URIC ACID (test code = 2233) 8.5 MG/DL VITAMIN [id number] 00:00:00 Test Item Value Reference Range Interpretation Comments VITAMIN B-12 (test code = 2840) 335 PG/ML VITAMIN [id number] 00:00:00 Test Item Value Reference Range Interpretation Comments VITAMIN B-12 (test code = 2840) 335 PG/ML VITAMIN [id number] 00:00:00 Test Item Value Reference Range Interpretation Comments VITAMIN B-12 (test code = 2840) 335 PG/ML CBC W/AUTO [id number] 00:00:00 Test Item Value Reference Range Interpretation [...] code = 1015) 212 K/UL CBC W/AUTO [id number] 00:00:00 Test Item Value Reference Range Interpretation [...] code = 1015) 212 K/UL CBC W/AUTO [id number] 00:00:00 Test Item Value Reference Range Interpretation [...] (test code = 1015) 212 K/UL LIPID [id number] 00:00:00 Test Item Value Reference Range Interpretation Comments CHOLESTEROL (test code = 2210) 141 MG/DL TRIGLYCERIDES (test code = 2232) 71 MG/DL HDL CHOLESTEROL (test code = 2220) 69 MG/DL CALC LDL CHOL (test code = 2237) 58 MG/DL RISK RATIO LDL/HDL (test code = 0.84 RATIO 2238) LIPID [id number] 00:00:00 Test Item Value Reference Range Interpretation Comments CHOLESTEROL (test code = 2210) 141 MG/DL TRIGLYCERIDES (test code = 2232) 71 MG/DL HDL CHOLESTEROL (test code = 2220) 69 MG/DL CALC LDL CHOL (test code = 2237) 58 MG/DL RISK RATIO LDL/HDL (test code = 0.84 RATIO 2238) COMPREHENSIVE METABOLIC [id number] 00:00:00 Test Item Value Reference Range Interpretation Comments GLUCOSE (test code = 2217) 95 MG/DL BUN (test code = 2208) 21 MG/DL CREATININE (test code = 2214) 0.87 MG/DL eGFR AMER. (test code 87 ML/MIN/1.73 = 13516) eGFR NON- AMER. (test 75 ML/MIN/1.73 code = 81307) CALC BUN/CREAT (test code = 24 RATIO [...] code = 2219) 8 U/L COMPREHENSIVE METABOLIC [id number] 00:00:00 Test Item Value Reference Range Interpretation Comments GLUCOSE (test code = 2217) 95 MG/DL BUN (test code = 2208) 21 MG/DL CREATININE (test code = 2214) 0.87 MG/DL eGFR AMER. (test code 87 ML/MIN/1.73 = 53586) eGFR NON- AMER. (test 75 ML/MIN/1.73 code = 04505) CALC BUN/CREAT (test code = 24 RATIO [...] (test code = 2219) 8 U/L URIC [id number] 00:00:00 Test Item Value Reference Range Interpretation Comments URIC ACID (test code = 2233) 8.5 MG/DL URIC [id number] 00:00:00 Test Item Value Reference Range Interpretation Comments URIC ACID (test code = 2233) 8.5 MG/DL VITAMIN [id number] 00:00:00 Test Item Value Reference Range Interpretation Comments VITAMIN B-12 (test code = 2840) 335 PG/ML VITAMIN [id number] 00:00:00 Test Item Value Reference Range Interpretation Comments VITAMIN B-12 (test code = 2840) 335 PG/ML VITAMIN [id number] 00:00:00 Test Item Value Reference Range Interpretation Comments VITAMIN B-12 (test code = 2840) 335 PG/ML CBC W/AUTO [id number] 00:00:00 Test Item Value Reference Range Interpretation [...] code = 1015) 212 K/UL CBC W/AUTO [id number] 00:00:00 Test Item Value Reference Range Interpretation [...] (test code = 1015) 212 K/UL LIPID [id number] 00:00:00 Test Item Value Reference Range Interpretation Comments CHOLESTEROL (test code = 2210) 141 MG/DL TRIGLYCERIDES (test code = 2232) 71 MG/DL HDL CHOLESTEROL (test code = 2220) 69 MG/DL CALC LDL CHOL (test code = 2237) 58 MG/DL RISK RATIO LDL/HDL (test code = 0.84 RATIO 2238) COMPREHENSIVE METABOLIC [id number] 00:00:00 Test Item Value Reference Range Interpretation Comments GLUCOSE (test code = 2217) 95 MG/DL BUN (test code = 2208) 21 MG/DL CREATININE (test code = 2214) 0.87 MG/DL eGFR AMER. (test code 87 ML/MIN/1.73 = 03017) eGFR NON- AMER. (test 75 ML/MIN/1.73 code = 01640) CALC BUN/CREAT (test code = 24 RATIO [...] ALKALINE PHOSPHATASE (test 83 U/L code = 220) AST (test code = 2218) 27 U/L ALT (test code = 2219) 8 U/L URIC [id number] 00:00:00 Test Item Value Reference Range Interpretation Comments URIC ACID (test code = 2233) 8.5 MG/DL VITAMIN [id number] 00:00:00 Test Item Value Reference Range Interpretation Comments VITAMIN B-12 (test code = 2840) 335 PG/ML VITAMIN [id number] 00:00:00 Test Item Value Reference Range Interpretation Comments VITAMIN B-12 (test code = 2840) 335 PG/ML CBC W/AUTO [id number] 00:00:00 Test Item Value Reference Range Interpretation [...] code = 1015) 212 K/UL CBC W/AUTO [id number] 00:00:00 Test Item Value Reference Range Interpretation [...] code = 1015) 212 K/UL CBC W/AUTO [id number] 00:00:00 Test Item Value Reference Range Interpretation [...] (test code = 1015) 212 K/UL LIPID [id number] 00:00:00 Test Item Value Reference Range Interpretation Comments CHOLESTEROL (test code = 2210) 141 MG/DL TRIGLYCERIDES (test code = 2232) 71 MG/DL HDL CHOLESTEROL (test code = 2220) 69 MG/DL CALC LDL CHOL (test code = 2237) 58 MG/DL RISK RATIO LDL/HDL (test code = 0.84 RATIO 2238) LIPID [id number] 00:00:00 Test Item Value Reference Range Interpretation Comments CHOLESTEROL (test code = 2210) 141 MG/DL TRIGLYCERIDES (test code = 2232) 71 MG/DL HDL CHOLESTEROL (test code = 2220) 69 MG/DL CALC LDL CHOL (test code = 2237) 58 MG/DL RISK RATIO LDL/HDL (test code = 0.84 RATIO 2238) COMPREHENSIVE METABOLIC [id number] 00:00:00 Test Item Value Reference Range Interpretation Comments GLUCOSE (test code = 2217) 95 MG/DL BUN (test code = 2208) 21 MG/DL CREATININE (test code = 2214) 0.87 MG/DL eGFR AMER. (test code 87 ML/MIN/1.73 = 01275) eGFR NON- AMER. (test 75 ML/MIN/1.73 code = 37257) CALC BUN/CREAT (test code = 24 RATIO [...] code = 2219) 8 U/L COMPREHENSIVE METABOLIC [id number] 00:00:00 Test Item Value Reference Range Interpretation Comments GLUCOSE (test code = 2217) 95 MG/DL BUN (test code = 2208) 21 MG/DL CREATININE (test code = 2214) 0.87 MG/DL eGFR AMER. (test code 87 ML/MIN/1.73 = 21654) eGFR NON- AMER. (test 75 ML/MIN/1.73 code = 32751) CALC BUN/CREAT (test code = 24 RATIO [...] (test code = 2219) 8 U/L URIC [id number] 00:00:00 Test Item Value Reference Range Interpretation Comments URIC ACID (test code = 2233) 8.5 MG/DL URIC [id number] 00:00:00 Test Item Value Reference Range Interpretation Comments URIC ACID (test code = 2233) 8.5 MG/DL VITAMIN [id number] 00:00:00 Test Item Value Reference Range Interpretation Comments VITAMIN B-12 (test code = 2840) 335 PG/ML VITAMIN [id number] 00:00:00 Test Item Value Reference Range Interpretation Comments VITAMIN B-12 (test code = 2840) 335 PG/ML VITAMIN [id number] 00:00:00 Test Item Value Reference Range Interpretation Comments VITAMIN B-12 (test code = 2840) 335 PG/ML CD4/CD8 LYMPHOCYTE [id number] 00:00:00 Test Item Value Reference Range Interpretation Comments ABSOLUTE LYMPHOCYTES (test code = 807 PERUL 03158) PERCENT CD4 (test code = 54976) 13.1 % ABSOLUTE CD4 (test code = 70409) 105 PERUL PERCENT CD8 (test code = 13424) 61.6 % ABSOLUTE CD8 (test code = 91602) 497 PERUL CD4/CD8 RATIO (test code = 05232) 0.21 CD4/CD8 LYMPHOCYTE [id number] 00:00:00 Test Item Value Reference Range Interpretation Comments ABSOLUTE LYMPHOCYTES (test code = 807 PERUL 36992) PERCENT CD4 (test code = 32865) 13.1 % ABSOLUTE CD4 (test code = 86874) 105 PERUL PERCENT CD8 (test code = 38991) 61.6 % ABSOLUTE CD8 (test code = 99047) 497 PERUL CD4/CD8 RATIO (test code = 57121) 0.21 CD4/CD8 LYMPHOCYTE [id number] 00:00:00 Test Item Value Reference Range Interpretation Comments ABSOLUTE LYMPHOCYTES (test code = 807 PERUL 58821) PERCENT CD4 (test code = 12220) 13.1 % ABSOLUTE CD4 (test code = 02993) 105 PERUL PERCENT CD8 (test code = 87134) 61.6 % ABSOLUTE CD8 (test code = 47950) 497 PERUL CD4/CD8 RATIO (test code = 41776) 0.21 CD4/CD8 LYMPHOCYTE [id number] 00:00:00 Test Item Value Reference Range Interpretation Comments ABSOLUTE LYMPHOCYTES (test code = 807 PERUL 09755) PERCENT CD4 (test code = 70799) 13.1 % ABSOLUTE CD4 (test code = 78692) 105 PERUL PERCENT CD8 (test code = 28694) 61.6 % ABSOLUTE CD8 (test code = 55570) 497 PERUL CD4/CD8 RATIO (test code = 95069) 0.21 CD4/CD8 LYMPHOCYTE [id number] 00:00:00 Test Item Value Reference Range Interpretation Comments ABSOLUTE LYMPHOCYTES (test code = 807 PERUL 21352) PERCENT CD4 (test code = 31481) 13.1 % ABSOLUTE CD4 (test code = 93200) 105 PERUL PERCENT CD8 (test code = 39667) 61.6 % ABSOLUTE CD8 (test code = 26912) 497 PERUL CD4/CD8 RATIO (test code = 09095) 0.21 CD4/CD8 LYMPHOCYTE [id number] 00:00:00 Test Item Value Reference Range Interpretation Comments ABSOLUTE LYMPHOCYTES (test code = 807 PERUL 48068) PERCENT CD4 (test code = 45980) 13.1 % ABSOLUTE CD4 (test code = 39442) 105 PERUL PERCENT CD8 (test code = 61970) 61.6 % ABSOLUTE CD8 (test code = 93526) 497 PERUL CD4/CD8 RATIO (test code = 25896) 0.21 CD4/CD8 LYMPHOCYTE [id number] 00:00:00 Test Item Value Reference Range Interpretation Comments ABSOLUTE LYMPHOCYTES (test code = 807 PERUL 60501) PERCENT CD4 (test code = 89868) 13.1 % ABSOLUTE CD4 (test code = 05800) 105 PERUL PERCENT CD8 (test code = 98342) 61.6 % ABSOLUTE CD8 (test code = 28034) 497 PERUL CD4/CD8 RATIO (test code = 23668) 0.21 VITAMIN [id number] 00:00:00 Test Item Value Reference Range Interpretation Comments VITAMIN B-12 (test code = 2840) 358 PG/ML VITAMIN [id number] 00:00:00 Test Item Value Reference Range Interpretation Comments VITAMIN B-12 (test code = 2840) 358 PG/ML VITAMIN [id number] 00:00:00 Test Item Value Reference Range Interpretation Comments VITAMIN B-12 (test code = 2840) 358 PG/ML VITAMIN [id number] 00:00:00 Test Item Value Reference Range Interpretation Comments VITAMIN B-12 (test code = 2840) 358 PG/ML VITAMIN [id number] 00:00:00 Test Item Value Reference Range Interpretation Comments VITAMIN B-12 (test code = 2840) 358 PG/ML VITAMIN [id number] 00:00:00 Test Item Value Reference Range Interpretation Comments VITAMIN B-12 (test code = 2840) 358 PG/ML VITAMIN [id number] 00:00:00 Test Item Value Reference Range Interpretation Comments VITAMIN B-12 (test code = 2840) 358 PG/ML VITAMIN [id number] 00:00:00 Test Item Value Reference Range Interpretation Comments VITAMIN B-12 (test code = 2840) 358 PG/ML VITAMIN [id number] 00:00:00 Test Item Value Reference Range Interpretation Comments VITAMIN B-12 (test code = 2840) 358 PG/ML VITAMIN [id number] 00:00:00 Test Item Value Reference Range Interpretation Comments VITAMIN B-12 (test code = 2840) 358 PG/ML VITAMIN [id number] 00:00:00 Test Item Value Reference Range Interpretation [...] 32 UG/DL UNSATURATED IBC (test code = 63206) 326 UG/DL CALC TOTAL IBC (test code = 2077) 358 UG/DL CALC % IRON SAT (test code = 2079) 9 % IRON BINDING CAPACITY AND IRON AND % SATURATION [ADDED]2018-09-09 00:00:00 Test Item Value Reference Range Interpretation Comments IRON, SERUM (test code = 2222) 32 UG/DL UNSATURATED IBC (test code = 51218) 326 UG/DL CALC TOTAL IBC (test code [...] Interpretation Comments IRON, SERUM (test code = 2) 32 UG/DL UNSATURATED IBC (test code = 13817) 326 UG/DL CALC TOTAL IBC (test code = 7) 358 UG/DL CALC % IRON SAT (test code = 9) 9 % IRON BINDING CAPACITY AND IRON AND % SATURATION [ADDED]2018-09-09 00:00:00 Test Item Value Reference Range Interpretation Comments IRON, SERUM (test code = 2222) 32 UG/DL UNSATURATED IBC (test code = 53046) 326 UG/DL CALC TOTAL IBC (test code = 7) 358 UG/DL CALC % IRON SAT (test code = 9) 9 % FERRITIN [ADDED]2018-09-09 00:00:00 Test Item [...] 32 UG/DL UNSATURATED IBC (test code = 77543) 326 UG/DL CALC TOTAL IBC (test code [...] 32 UG/DL UNSATURATED IBC (test code = 40843) 326 UG/DL CALC TOTAL IBC (test code = 7) 358 UG/DL CALC % IRON SAT (test code = 2079) 9 % IRON BINDING CAPACITY AND IRON AND % SATURATION [ADDED]2018-09-09 00:00:00 Test Item Value Reference Range Interpretation Comments IRON, SERUM (test code = 2222) 32 UG/DL UNSATURATED IBC (test code = 87872) 326 UG/DL CALC TOTAL IBC (test code = 7) 358 UG/DL CALC % IRON SAT (test code = 9) 9 % FERRITIN [ADDED]2018-09-09 00:00:00 Test Item [...] (test code = 4936) 298 MG/DL URIC [id number] 00:00:00 Test Item Value Reference Range Interpretation Comments URIC ACID (test code = 2233) 7.8 MG/DL URIC [id number] 00:00:00 Test Item Value Reference Range Interpretation Comments URIC ACID (test code = 2233) 7.8 MG/DL CBC W/AUTO [id number] 00:00:00 Test Item Value Reference Range Interpretation [...] code = 1015) 230 K/UL CBC W/AUTO [id number] 00:00:00 Test Item Value Reference Range Interpretation [...] code = 1015) 230 K/UL CBC W/AUTO [id number] 00:00:00 Test Item Value Reference Range Interpretation [...] code = 1015) 230 K/UL COMPREHENSIVE METABOLIC [id number] 00:00:00 Test Item Value Reference Range Interpretation Comments GLUCOSE (test code = 2217) 84 MG/DL BUN (test code = 2208) 12 MG/DL CREATININE (test code = 2214) 1.02 MG/DL eGFR AMER. (test code 72 ML/MIN/1.73 = 40605) eGFR NON- AMER. (test 62 ML/MIN/1.73 code = 36249) CALC BUN/CREAT (test code = 12 RATIO 2235) SODIUM (test code = 2231) 140 MEQ/L POTASSIUM (test code = 2228) 3.8 MEQ/L CHLORIDE (test code = 2215) 107 MEQ/L CARBON DIOXIDE (test code = 25 MEQ/L 220) CALCIUM (test code = 2209) 9.4 MG/DL PROTEIN, TOTAL (test code = 9.7 G/DL 222) ALBUMIN (test code = 2201) 3.7 G/DL CALC GLOBULIN (test code = 6.0 G/DL 2240) CALC A/G RATIO (test code = 0.6 RATIO 2233) BILIRUBIN, TOTAL (test code = 0.3 MG/DL 2206) ALKALINE PHOSPHATASE (test 90 U/L code = 2204) AST (test code = 2218) 23 U/L ALT (test code = 2219) 9 U/L COMPREHENSIVE METABOLIC [id number] 00:00:00 Test Item Value Reference Range Interpretation Comments GLUCOSE (test code = 2217) 84 MG/DL BUN (test code = 2208) 12 MG/DL CREATININE (test code = 2214) 1.02 MG/DL eGFR AMER. (test code 72 ML/MIN/1.73 = 80996) eGFR NON- AMER. (test 62 ML/MIN/1.73 code = 31238) CALC BUN/CREAT (test code = 12 RATIO 2235) SODIUM (test code = 2231) 140 MEQ/L POTASSIUM (test code = 2228) 3.8 MEQ/L CHLORIDE (test code = 2215) 107 MEQ/L CARBON DIOXIDE (test code = 25 MEQ/L 2206) CALCIUM (test code = 2209) 9.4 MG/DL PROTEIN, TOTAL (test code = 9.7 G/DL 222) ALBUMIN (test code = 2201) 3.7 G/DL CALC GLOBULIN (test code = 6.0 G/DL 2240) CALC A/G RATIO (test code = 0.6 RATIO 2234) BILIRUBIN, TOTAL (test code = 0.3 MG/DL 2207) ALKALINE PHOSPHATASE (test 90 U/L code = 2204) AST (test code = 2218) 23 U/L ALT (test code = 2219) 9 U/L URIC [id number] 00:00:00 Test Item Value Reference Range Interpretation Comments URIC ACID (test code = 2233) 7.8 MG/DL URIC [id number] 00:00:00 Test Item Value Reference Range Interpretation Comments URIC ACID (test code = 2233) 7.8 MG/DL CBC W/AUTO [id number] 00:00:00 Test Item Value Reference Range Interpretation [...] code = 1015) 230 K/UL CBC W/AUTO [id number] 00:00:00 Test Item Value Reference Range Interpretation [...] code = 1015) 230 K/UL CBC W/AUTO [id number] 00:00:00 Test Item Value Reference Range Interpretation [...] code = 1015) 230 K/UL COMPREHENSIVE METABOLIC [id number] 00:00:00 Test Item Value Reference Range Interpretation Comments GLUCOSE (test code = 2217) 84 MG/DL BUN (test code = 2208) 12 MG/DL CREATININE (test code = 2214) 1.02 MG/DL eGFR AMER. (test code 72 ML/MIN/1.73 = 97928) eGFR NON- AMER. (test 62 ML/MIN/1.73 code = 63456) CALC BUN/CREAT (test code = 12 RATIO 2235) SODIUM (test code = 2231) 140 MEQ/L POTASSIUM (test code = 2228) 3.8 MEQ/L CHLORIDE (test code = 2215) 107 MEQ/L CARBON DIOXIDE (test code = 25 MEQ/L 2206) CALCIUM (test code = 2209) 9.4 MG/DL PROTEIN, TOTAL (test code = 9.7 G/DL 2228) ALBUMIN (test code = 2201) 3.7 G/DL CALC GLOBULIN (test code = 6.0 G/DL 224) CALC A/G RATIO (test code = 0.6 RATIO 2234) BILIRUBIN, TOTAL (test code = 0.3 MG/DL 2206) ALKALINE PHOSPHATASE (test 90 U/L code = 2204) AST (test code = 2218) 23 U/L ALT (test code = 2219) 9 U/L COMPREHENSIVE METABOLIC [id number] 00:00:00 Test Item Value Reference Range Interpretation Comments GLUCOSE (test code = 2217) 84 MG/DL BUN (test code = 2208) 12 MG/DL CREATININE (test code = 2214) 1.02 MG/DL eGFR AMER. (test code 72 ML/MIN/1.73 = 85303) eGFR NON- AMER. (test 62 ML/MIN/1.73 code = 21241) CALC BUN/CREAT (test code = 12 RATIO [...] (test code = 2219) 9 U/L URIC [id number] 00:00:00 Test Item Value Reference Range Interpretation Comments URIC ACID (test code = 2233) 7.8 MG/DL CBC W/AUTO [id number] 00:00:00 Test Item Value Reference Range Interpretation [...] code = 1015) 230 K/UL CBC W/AUTO [id number] 00:00:00 Test Item Value Reference Range Interpretation [...] code = 1015) 230 K/UL COMPREHENSIVE METABOLIC [id number] 00:00:00 Test Item Value Reference Range Interpretation Comments GLUCOSE (test code = 2217) 84 MG/DL BUN (test code = 2208) 12 MG/DL CREATININE (test code = 2214) 1.02 MG/DL eGFR AMER. (test code 72 ML/MIN/1.73 = 71236) eGFR NON- AMER. (test 62 ML/MIN/1.73 code = 78124) CALC BUN/CREAT (test code = 12 RATIO [...] CALC GLOBULIN (test code = 6.0 G/DL 224) CALC A/G RATIO (test code = 0.6 RATIO 2234) BILIRUBIN, TOTAL (test code = 0.3 MG/DL 2207) ALKALINE PHOSPHATASE (test 90 U/L code = 2204) AST (test code = 2218) 23 U/L ALT (test code = 2219) 9 U/L URIC [id number] 00:00:00 Test Item Value Reference Range Interpretation Comments URIC ACID (test code = 2233) 7.8 MG/DL URIC [id number] 00:00:00 Test Item Value Reference Range Interpretation Comments URIC ACID (test code = 2233) 7.8 MG/DL CBC W/AUTO [id number] 00:00:00 Test Item Value Reference Range Interpretation [...] code = 1015) 230 K/UL CBC W/AUTO [id number] 00:00:00 Test Item Value Reference Range Interpretation [...] code = 1015) 230 K/UL CBC W/AUTO [id number] 00:00:00 Test Item Value Reference Range Interpretation [...] code = 1015) 230 K/UL COMPREHENSIVE METABOLIC [id number] 00:00:00 Test Item Value Reference Range Interpretation Comments GLUCOSE (test code = 2217) 84 MG/DL BUN (test code = 2208) 12 MG/DL CREATININE (test code = 2214) 1.02 MG/DL eGFR AMER. (test code 72 ML/MIN/1.73 = 82804) eGFR NON- AMER. (test 62 ML/MIN/1.73 code = 91535) CALC BUN/CREAT (test code = 12 RATIO 2235) SODIUM (test code = 2231) 140 MEQ/L POTASSIUM (test code = 2228) 3.8 MEQ/L CHLORIDE (test code = 2215) 107 MEQ/L CARBON DIOXIDE (test code = 25 MEQ/L 2206) CALCIUM (test code = 2209) [...] code = 2219) 9 U/L COMPREHENSIVE METABOLIC [id number] 00:00:00 Test Item Value Reference Range Interpretation Comments GLUCOSE (test code = 2217) 84 MG/DL BUN (test code = 2208) 12 MG/DL CREATININE (test code = 2214) 1.02 MG/DL eGFR AMER. (test code 72 ML/MIN/1.73 = 14830) eGFR NON- AMER. (test 62 ML/MIN/1.73 code = 76070) CALC BUN/CREAT (test code = 12 RATIO 2235) SODIUM (test code = 2231) 140 MEQ/L POTASSIUM (test code = 2228) 3.8 MEQ/L CHLORIDE (test code = 2215) 107 MEQ/L CARBON DIOXIDE (test code = 25 MEQ/L 2206) CALCIUM (test code = 2209) 9.4 MG/DL PROTEIN, TOTAL (test code = 9.7 G/DL 222) ALBUMIN (test code = 2201) 3.7 G/DL CALC GLOBULIN (test code = 6.0 G/DL 2240) CALC A/G RATIO (test code = 0.6 RATIO 2234) BILIRUBIN, TOTAL (test code = 0.3 MG/DL 220) ALKALINE PHOSPHATASE (test 90 U/L code = 2204) AST (test code = 2218) 23 U/L ALT (test code = 2219) 9 U/L CBC W/AUTO [id number] 00:00:00 Test Item Value Reference Range Interpretation [...] code = 1015) 317 K/UL CBC W/AUTO [id number] 00:00:00 Test Item Value Reference Range Interpretation [...] code = 1015) 317 K/UL CBC W/AUTO [id number] 00:00:00 Test Item Value Reference Range Interpretation [...] (test code = 1015) 317 K/UL LIPID [id number] 00:00:00 Test Item Value Reference Range Interpretation Comments CHOLESTEROL (test code = 2210) 215 MG/DL TRIGLYCERIDES (test code = 2232) 61 MG/DL HDL CHOLESTEROL (test code = 2220) 93 MG/DL CALC LDL CHOL (test code = 2237) 110 MG/DL RISK RATIO LDL/HDL (test code = 1.18 RATIO 2238) LIPID [id number] 00:00:00 Test Item Value Reference Range Interpretation Comments CHOLESTEROL (test code = 2210) 215 MG/DL TRIGLYCERIDES (test code = 2232) 61 MG/DL HDL CHOLESTEROL (test code = 2220) 93 MG/DL CALC LDL CHOL (test code = 2237) 110 MG/DL RISK RATIO LDL/HDL (test code = 1.18 RATIO 2238) COMPREHENSIVE METABOLIC [id number] 00:00:00 Test Item Value Reference Range Interpretation Comments GLUCOSE (test code = 2217) 93 MG/DL BUN (test code = 2208) 20 MG/DL CREATININE (test code = 2214) 1.18 MG/DL eGFR AMER. (test code 61 ML/MIN/1.73 = 96438) eGFR NON- AMER. (test 52 ML/MIN/1.73 code = 66690) CALC BUN/CREAT (test code = 17 RATIO 2235) SODIUM (test code = 2231) 138 MEQ/L POTASSIUM (test code = 2228) 4.0 MEQ/L CHLORIDE (test code = 2215) 105 MEQ/L CARBON DIOXIDE (test code = 23 MEQ/L 2206) CALCIUM (test code = 2209) 9.6 MG/DL PROTEIN, TOTAL (test code = 10.3 G/DL 2229) ALBUMIN (test code = 2201) 3.9 G/DL CALC GLOBULIN (test code = 6.4 G/DL 2240) CALC A/G RATIO (test code = 0.6 RATIO 2234) BILIRUBIN, TOTAL (test code = 0.4 MG/DL 2207) ALKALINE PHOSPHATASE (test 105 U/L code = 2204) AST (test code = 2218) 39 U/L ALT (test code = 2219) 15 U/L COMPREHENSIVE METABOLIC [id number] 00:00:00 Test Item Value Reference Range Interpretation Comments GLUCOSE (test code = 2217) 93 MG/DL BUN (test code = 2208) 20 MG/DL CREATININE (test code = 2214) 1.18 MG/DL eGFR AMER. (test code 61 ML/MIN/1.73 = 33829) eGFR NON- AMER. (test 52 ML/MIN/1.73 code = 28257) CALC BUN/CREAT (test code = 17 RATIO [...] code = 2219) 15 U/L CBC W/AUTO [id number] 00:00:00 Test Item Value Reference Range Interpretation [...] code = 1015) 317 K/UL CBC W/AUTO [id number] 00:00:00 Test Item Value Reference Range Interpretation [...] code = 1015) 317 K/UL CBC W/AUTO [id number] 00:00:00 Test Item Value Reference Range Interpretation [...] (test code = 1015) 317 K/UL LIPID [id number] 00:00:00 Test Item Value Reference Range Interpretation Comments CHOLESTEROL (test code = 2210) 215 MG/DL TRIGLYCERIDES (test code = 2232) 61 MG/DL HDL CHOLESTEROL (test code = 2220) 93 MG/DL CALC LDL CHOL (test code = 2237) 110 MG/DL RISK RATIO LDL/HDL (test code = 1.18 RATIO 2238) LIPID [id number] 00:00:00 Test Item Value Reference Range Interpretation Comments CHOLESTEROL (test code = 2210) 215 MG/DL TRIGLYCERIDES (test code = 2232) 61 MG/DL HDL CHOLESTEROL (test code = 2220) 93 MG/DL CALC LDL CHOL (test code = 2237) 110 MG/DL RISK RATIO LDL/HDL (test code = 1.18 RATIO 2238) COMPREHENSIVE METABOLIC [id number] 00:00:00 Test Item Value Reference Range Interpretation Comments GLUCOSE (test code = 2217) 93 MG/DL BUN (test code = 2208) 20 MG/DL CREATININE (test code = 2214) 1.18 MG/DL eGFR AMER. (test code 61 ML/MIN/1.73 = 49053) eGFR NON- AMER. (test 52 ML/MIN/1.73 code = 38995) CALC BUN/CREAT (test code = 17 RATIO [...] code = 2219) 15 U/L COMPREHENSIVE METABOLIC [id number] 00:00:00 Test Item Value Reference Range Interpretation Comments GLUCOSE (test code = 2217) 93 MG/DL BUN (test code = 2208) 20 MG/DL CREATININE (test code = 2214) 1.18 MG/DL eGFR AMER. (test code 61 ML/MIN/1.73 = 62559) eGFR NON- AMER. (test 52 ML/MIN/1.73 code = 00490) CALC BUN/CREAT (test code = 17 RATIO [...] code = 2219) 15 U/L CBC W/AUTO [id number] 00:00:00 Test Item Value Reference Range Interpretation [...] code = 1015) 317 K/UL CBC W/AUTO [id number] 00:00:00 Test Item Value Reference Range Interpretation [...] (test code = 1015) 317 K/UL LIPID [id number] 00:00:00 Test Item Value Reference Range Interpretation Comments CHOLESTEROL (test code = 2210) 215 MG/DL TRIGLYCERIDES (test code = 2232) 61 MG/DL HDL CHOLESTEROL (test code = 2220) 93 MG/DL CALC LDL CHOL (test code = 2237) 110 MG/DL RISK RATIO LDL/HDL (test code = 1.18 RATIO 2238) COMPREHENSIVE METABOLIC [id number] 00:00:00 Test Item Value Reference Range Interpretation Comments GLUCOSE (test code = 2217) 93 MG/DL BUN (test code = 2208) 20 MG/DL CREATININE (test code = 2214) 1.18 MG/DL eGFR AMER. (test code 61 ML/MIN/1.73 = 95924) eGFR NON- AMER. (test 52 ML/MIN/1.73 code = 54945) CALC BUN/CREAT (test code = 17 RATIO 2235) SODIUM (test code = 2231) 138 MEQ/L POTASSIUM (test code = 2228) 4.0 MEQ/L CHLORIDE (test code = 2215) 105 MEQ/L CARBON DIOXIDE (test code = 23 MEQ/L 2206) CALCIUM (test code = 2209) 9.6 MG/DL [...] code = 2219) 15 U/L CBC W/AUTO [id number] 00:00:00 Test Item Value Reference Range Interpretation [...] code = 1015) 317 K/UL CBC W/AUTO [id number] 00:00:00 Test Item Value Reference Range Interpretation [...] code = 1015) 317 K/UL CBC W/AUTO [id number] 00:00:00 Test Item Value Reference Range Interpretation [...] (test code = 1015) 317 K/UL LIPID [id number] 00:00:00 Test Item Value Reference Range Interpretation Comments CHOLESTEROL (test code = 2210) 215 MG/DL TRIGLYCERIDES (test code = 2232) 61 MG/DL HDL CHOLESTEROL (test code = 2220) 93 MG/DL CALC LDL CHOL (test code = 2237) 110 MG/DL RISK RATIO LDL/HDL (test code = 1.18 RATIO 2238) LIPID [id number] 00:00:00 Test Item Value Reference Range Interpretation Comments CHOLESTEROL (test code = 2210) 215 MG/DL TRIGLYCERIDES (test code = 2232) 61 MG/DL HDL CHOLESTEROL (test code = 2220) 93 MG/DL CALC LDL CHOL (test code = 2237) 110 MG/DL RISK RATIO LDL/HDL (test code = 1.18 RATIO 2238) COMPREHENSIVE METABOLIC [id number] 00:00:00 Test Item Value Reference Range Interpretation Comments GLUCOSE (test code = 2217) 93 MG/DL BUN (test code = 2208) 20 MG/DL CREATININE (test code = 2214) 1.18 MG/DL eGFR AMER. (test code 61 ML/MIN/1.73 = 99422) eGFR NON- AMER. (test 52 ML/MIN/1.73 code = 78314) CALC BUN/CREAT (test code = 17 RATIO [...] = 0.4 MG/DL 2207) ALKALINE PHOSPHATASE (test 105 U/L code = 2204) AST (test code = 2218) 39 U/L ALT (test code = 2219) 15 U/L COMPREHENSIVE METABOLIC [id number] 00:00:00 Test Item Value Reference Range Interpretation Comments GLUCOSE (test code = 2217) 93 MG/DL BUN (test code = 2208) 20 MG/DL CREATININE (test code = 2214) 1.18 MG/DL eGFR AMER. (test code 61 ML/MIN/1.73 = 61157) eGFR NON- AMER. (test 52 ML/MIN/1.73 code = 97713) CALC BUN/CREAT (test code = 17 RATIO [...] CULTURE, URINE (test SPECIMEN NUMBER: code = 56818) [id number] CULTURE, URINE [ADDED]2017-08-24 00:00:00 Test Item Value Reference Range Interpretation Comments CULTURE, URINE (test SPECIMEN NUMBER: code = 16851) [id number] CULTURE, URINE [ADDED]2017-08-24 00:00:00 Test Item Value Reference Range Interpretation Comments CULTURE, URINE (test SPECIMEN NUMBER: code = 17430) [id number] CULTURE, URINE [ADDED]2017-08-24 00:00:00 Test Item Value Reference Range Interpretation Comments CULTURE, URINE (test SPECIMEN NUMBER: code = 06968) [id number] CULTURE, URINE [ADDED]2017-08-24 00:00:00 Test Item Value Reference Range Interpretation Comments CULTURE, URINE (test SPECIMEN NUMBER: code = 95371) [id number] CULTURE, URINE [ADDED]2017-08-24 00:00:00 Test Item Value Reference Range Interpretation Comments CULTURE, URINE (test SPECIMEN NUMBER: code = 05413) [id number] CULTURE, URINE [ADDED]2017-08-24 00:00:00 Test Item Value Reference Range Interpretation Comments CULTURE, URINE (test SPECIMEN NUMBER: code = 49696) [id number] CBC W/AUTO [id number] 00:00:00 Test Item Value Reference Range Interpretation [...] (test code = 1016) (NOTE) CBC W/AUTO [id number] 00:00:00 Test Item Value Reference Range Interpretation [...] (test code = 1016) (NOTE) CBC W/AUTO [id number] 00:00:00 Test Item Value Reference Range Interpretation [...] (test code = 1016) (NOTE) COMPREHENSIVE METABOLIC [id number] 00:00:00 Test Item Value Reference Range Interpretation Comments GLUCOSE (test code = 2217) 92 MG/DL BUN (test code = 2208) 23 MG/DL CREATININE (test code = 2214) 1.27 MG/DL eGFR AMER. (test code 55 ML/MIN/1.73 = 71933) eGFR NON- AMER. (test 48 ML/MIN/1.73 code = 48040) CALC BUN/CREAT (test code = 18 RATIO [...] BILIRUBIN, TOTAL (test code = 0.4 MG/DL 220) ALKALINE PHOSPHATASE (test 102 U/L code = 2204) AST (test code = 2218) 31 U/L ALT (test code = 2219) 23 U/L COMPREHENSIVE METABOLIC [id number] 00:00:00 Test Item Value Reference Range Interpretation Comments GLUCOSE (test code = 2217) 92 MG/DL BUN (test code = 2208) 23 MG/DL CREATININE (test code = 2214) 1.27 MG/DL eGFR AMER. (test code 55 ML/MIN/1.73 = 40018) eGFR NON- AMER. (test 48 ML/MIN/1.73 code = 35876) CALC BUN/CREAT (test code = 18 RATIO [...] CALC GLOBULIN (test code = 5.9 G/DL 2239) CALC A/G RATIO (test code = 0.7 RATIO 2233) BILIRUBIN, TOTAL (test code = 0.4 MG/DL 2206) ALKALINE PHOSPHATASE (test 102 U/L code = 2204) AST (test code = 2218) 31 U/L ALT (test code = 2219) 23 U/L HEPATITIS C REFLEX [id number] 00:00:00 Test Item Value Reference Range Interpretation Comments HEPATITIS C ANTIBODY (test code NON-REACTIVE = 4675) HEPATITIS C REFLEX [id number] 00:00:00 Test Item Value Reference Range Interpretation Comments HEPATITIS C ANTIBODY (test code NON-REACTIVE = 4675) CBC W/AUTO [id number] 00:00:00 Test Item Value Reference Range Interpretation [...] (test code = 1016) (NOTE) CBC W/AUTO [id number] 00:00:00 Test Item Value Reference Range Interpretation [...] (test code = 1016) (NOTE) CBC W/AUTO [id number] 00:00:00 Test Item Value Reference Range Interpretation [...] (test code = 1016) (NOTE) COMPREHENSIVE METABOLIC [id number] 00:00:00 Test Item Value Reference Range Interpretation Comments GLUCOSE (test code = 2217) 92 MG/DL BUN (test code = 2208) 23 MG/DL CREATININE (test code = 2214) 1.27 MG/DL eGFR AMER. (test code 55 ML/MIN/1.73 = 83860) eGFR NON- AMER. (test 48 ML/MIN/1.73 code = 78237) CALC BUN/CREAT (test code = 18 RATIO [...] code = 2219) 23 U/L COMPREHENSIVE METABOLIC [id number] 00:00:00 Test Item Value Reference Range Interpretation Comments GLUCOSE (test code = 2217) 92 MG/DL BUN (test code = 2208) 23 MG/DL CREATININE (test code = 2214) 1.27 MG/DL eGFR AMER. (test code 55 ML/MIN/1.73 = 63094) eGFR NON- AMER. (test 48 ML/MIN/1.73 code = 67867) CALC BUN/CREAT (test code = 18 RATIO [...] = 2219) 23 U/L HEPATITIS C REFLEX [id number] 00:00:00 Test Item Value Reference Range Interpretation Comments HEPATITIS C ANTIBODY (test code NON-REACTIVE = 4675) HEPATITIS C REFLEX [id number] 00:00:00 Test Item Value Reference Range Interpretation Comments HEPATITIS C ANTIBODY (test code NON-REACTIVE = 4675) CBC W/AUTO [id number] 00:00:00 Test Item Value Reference Range Interpretation [...] (test code = 1016) (NOTE) CBC W/AUTO [id number] 00:00:00 Test Item Value Reference Range Interpretation [...] (test code = 1016) (NOTE) COMPREHENSIVE METABOLIC [id number] 00:00:00 Test Item Value Reference Range Interpretation Comments GLUCOSE (test code = 2217) 92 MG/DL BUN (test code = 2208) 23 MG/DL CREATININE (test code = 2214) 1.27 MG/DL eGFR AMER. (test code 55 ML/MIN/1.73 = 53392) eGFR NON- AMER. (test 48 ML/MIN/1.73 code = 57421) CALC BUN/CREAT (test code = 18 RATIO [...] CALC GLOBULIN (test code = 5.9 G/DL 2239) CALC A/G RATIO (test code = 0.7 RATIO 2233) BILIRUBIN, TOTAL (test code = 0.4 MG/DL 2206) ALKALINE PHOSPHATASE (test 102 U/L code = 2204) AST (test code = 2218) 31 U/L ALT (test code = 2219) 23 U/L HEPATITIS C REFLEX [id number] 00:00:00 Test Item Value Reference Range Interpretation Comments HEPATITIS C ANTIBODY (test code NON-REACTIVE = 4675) CBC W/AUTO [id number] 00:00:00 Test Item Value Reference Range Interpretation [...] (test code = 1016) (NOTE) CBC W/AUTO [id number] 00:00:00 Test Item Value Reference Range Interpretation [...] (test code = 1016) (NOTE) CBC W/AUTO [id number] 00:00:00 Test Item Value Reference Range Interpretation [...] (test code = 1016) (NOTE) COMPREHENSIVE METABOLIC [id number] 00:00:00 Test Item Value Reference Range Interpretation Comments GLUCOSE (test code = 2217) 92 MG/DL BUN (test code = 2208) 23 MG/DL CREATININE (test code = 2214) 1.27 MG/DL eGFR AMER. (test code 55 ML/MIN/1.73 = 73481) eGFR NON- AMER. (test 48 ML/MIN/1.73 code = 92618) CALC BUN/CREAT (test code = 18 RATIO [...] code = 2219) 23 U/L COMPREHENSIVE METABOLIC [id number] 00:00:00 Test Item Value Reference Range Interpretation Comments GLUCOSE (test code = 2217) 92 MG/DL BUN (test code = 2208) 23 MG/DL CREATININE (test code = 2214) 1.27 MG/DL eGFR AMER. (test code 55 ML/MIN/1.73 = 26410) eGFR NON- AMER. (test 48 ML/MIN/1.73 code = 08974) CALC BUN/CREAT (test code = 18 RATIO [...] = 2219) 23 U/L HEPATITIS C REFLEX [id number] 00:00:00 Test Item Value Reference Range Interpretation Comments HEPATITIS C ANTIBODY (test code NON-REACTIVE = 4675) HEPATITIS C REFLEX [id number] 00:00:00 Test Item Value Reference Range Interpretation Comments HEPATITIS C ANTIBODY (test code NON-REACTIVE = 4675) CBC W/AUTO [id number] 00:00:00 Test Item Value Reference Range Interpretation [...] (test code = 1016) (NOTE) CBC W/AUTO [id number] 00:00:00 Test Item Value Reference Range Interpretation [...] (test code = 1016) (NOTE) CBC W/AUTO [id number] 00:00:00 Test Item Value Reference Range Interpretation [...] (test code = 1016) (NOTE) COMPREHENSIVE METABOLIC [id number] 00:00:00 Test Item Value Reference Range Interpretation Comments GLUCOSE (test code = 2217) 88 MG/DL BUN (test code = 2208) 24 MG/DL CREATININE (test code = 2214) 0.94 MG/DL eGFR AMER. (test code 80 ML/MIN/1.73 = 37477) eGFR NON- AMER. (test 69 ML/MIN/1.73 code = 91247) CALC BUN/CREAT (test code = 26 RATIO [...] code = 2219) 10 U/L COMPREHENSIVE METABOLIC [id number] 00:00:00 Test Item Value Reference Range Interpretation Comments GLUCOSE (test code = 2217) 88 MG/DL BUN (test code = 2208) 24 MG/DL CREATININE (test code = 2214) 0.94 MG/DL eGFR AMER. (test code 80 ML/MIN/1.73 = 04054) eGFR NON- AMER. (test 69 ML/MIN/1.73 code = 12209) CALC BUN/CREAT (test code = 26 RATIO [...] (test code = 2219) 10 U/L LIPID [id number] 00:00:00 Test Item Value Reference Range Interpretation Comments CHOLESTEROL (test code = 2210) 211 MG/DL TRIGLYCERIDES (test code = 2232) 52 MG/DL HDL CHOLESTEROL (test code = 2220) 90 MG/DL CALC LDL CHOL (test code = 2237) 111 MG/DL RISK RATIO LDL/HDL (test code = 1.23 RATIO 2238) LIPID [id number] 00:00:00 Test Item Value Reference Range Interpretation Comments CHOLESTEROL (test code = 2210) 211 MG/DL TRIGLYCERIDES (test code = 2232) 52 MG/DL HDL CHOLESTEROL (test code = 2220) 90 MG/DL CALC LDL CHOL (test code = 2237) 111 MG/DL RISK RATIO LDL/HDL (test code = 1.23 RATIO 2238) CBC W/AUTO [id number] 00:00:00 Test Item Value Reference Range Interpretation [...] (test code = 1016) (NOTE) CBC W/AUTO [id number] 00:00:00 Test Item Value Reference Range Interpretation [...] (test code = 1016) (NOTE) CBC W/AUTO [id number] 00:00:00 Test Item Value Reference Range Interpretation [...] (test code = 1016) (NOTE) COMPREHENSIVE METABOLIC [id number] 00:00:00 Test Item Value Reference Range Interpretation Comments GLUCOSE (test code = 2217) 88 MG/DL BUN (test code = 2208) 24 MG/DL CREATININE (test code = 2214) 0.94 MG/DL eGFR AMER. (test code 80 ML/MIN/1.73 = 62460) eGFR NON- AMER. (test 69 ML/MIN/1.73 code = 38113) CALC BUN/CREAT (test code = 26 RATIO [...] BILIRUBIN, TOTAL (test code = 0.3 MG/DL 220) ALKALINE PHOSPHATASE (test 89 U/L code = 2204) AST (test code = 2218) 18 U/L ALT (test code = 2219) 10 U/L COMPREHENSIVE METABOLIC [id number] 00:00:00 Test Item Value Reference Range Interpretation Comments GLUCOSE (test code = 2217) 88 MG/DL BUN (test code = 2208) 24 MG/DL CREATININE (test code = 2214) 0.94 MG/DL eGFR AMER. (test code 80 ML/MIN/1.73 = 98311) eGFR NON- AMER. (test 69 ML/MIN/1.73 code = 38881) CALC BUN/CREAT (test code = 26 RATIO [...] (test code = 2219) 10 U/L LIPID [id number] 00:00:00 Test Item Value Reference Range Interpretation Comments CHOLESTEROL (test code = 2210) 211 MG/DL TRIGLYCERIDES (test code = 2232) 52 MG/DL HDL CHOLESTEROL (test code = 2220) 90 MG/DL CALC LDL CHOL (test code = 2237) 111 MG/DL RISK RATIO LDL/HDL (test code = 1.23 RATIO 2238) LIPID [id number] 00:00:00 Test Item Value Reference Range Interpretation Comments CHOLESTEROL (test code = 2210) 211 MG/DL TRIGLYCERIDES (test code = 2232) 52 MG/DL HDL CHOLESTEROL (test code = 2220) 90 MG/DL CALC LDL CHOL (test code = 2237) 111 MG/DL RISK RATIO LDL/HDL (test code = 1.23 RATIO 2238) CBC W/AUTO [id number] 00:00:00 Test Item Value Reference Range Interpretation [...] (test code = 1016) (NOTE) CBC W/AUTO [id number] 00:00:00 Test Item Value Reference Range Interpretation [...] (test code = 1016) (NOTE) COMPREHENSIVE METABOLIC [id number] 00:00:00 Test Item Value Reference Range Interpretation Comments GLUCOSE (test code = 2217) 88 MG/DL BUN (test code = 2208) 24 MG/DL CREATININE (test code = 2214) 0.94 MG/DL eGFR AMER. (test code 80 ML/MIN/1.73 = 02779) eGFR NON- AMER. (test 69 ML/MIN/1.73 code = 34222) CALC BUN/CREAT (test code = 26 RATIO [...] CALC GLOBULIN (test code = 6.2 G/DL 224) CALC A/G RATIO (test code = 0.6 RATIO 2234) BILIRUBIN, TOTAL (test code = 0.3 MG/DL 7) ALKALINE PHOSPHATASE (test 89 U/L code = 2204) AST (test code = 2218) 18 U/L ALT (test code = 2219) 10 U/L LIPID [id number] 00:00:00 Test Item Value Reference Range Interpretation Comments CHOLESTEROL (test code = 2210) 211 MG/DL TRIGLYCERIDES (test code = 2232) 52 MG/DL HDL CHOLESTEROL (test code = 2220) 90 MG/DL CALC LDL CHOL (test code = 2237) 111 MG/DL RISK RATIO LDL/HDL (test code = 1.23 RATIO 2238) CBC W/AUTO [id number] 00:00:00 Test Item Value Reference Range Interpretation [...] (test code = 1016) (NOTE) CBC W/AUTO [id number] 00:00:00 Test Item Value Reference Range Interpretation [...] (test code = 1016) (NOTE) CBC W/AUTO [id number] 00:00:00 Test Item Value Reference Range Interpretation [...] (test code = 1016) (NOTE) COMPREHENSIVE METABOLIC [id number] 00:00:00 Test Item Value Reference Range Interpretation Comments GLUCOSE (test code = 2217) 88 MG/DL BUN (test code = 2208) 24 MG/DL CREATININE (test code = 2214) 0.94 MG/DL eGFR AMER. (test code 80 ML/MIN/1.73 = 87611) eGFR NON- AMER. (test 69 ML/MIN/1.73 code = 13344) CALC BUN/CREAT (test code = 26 RATIO [...] CALC GLOBULIN (test code = 6.2 G/DL 224) CALC A/G RATIO (test code = 0.6 RATIO 2234) BILIRUBIN, TOTAL (test code = 0.3 MG/DL 2206) ALKALINE PHOSPHATASE (test 89 U/L code = 2204) AST (test code = 2218) 18 U/L ALT (test code = 2219) 10 U/L COMPREHENSIVE METABOLIC [id number] 00:00:00 Test Item Value Reference Range Interpretation Comments GLUCOSE (test code = 2217) 88 MG/DL BUN (test code = 2208) 24 MG/DL CREATININE (test code = 2214) 0.94 MG/DL eGFR AMER. (test code 80 ML/MIN/1.73 = 15001) eGFR NON- AMER. (test 69 ML/MIN/1.73 code = 90062) CALC BUN/CREAT (test code = 26 RATIO [...] (test code = 2219) 10 U/L LIPID [id number] 00:00:00 Test Item Value Reference Range Interpretation Comments CHOLESTEROL (test code = 2210) 211 MG/DL TRIGLYCERIDES (test code = 2232) 52 MG/DL HDL CHOLESTEROL (test code = 2220) 90 MG/DL CALC LDL CHOL (test code = 2237) 111 MG/DL RISK RATIO LDL/HDL (test code = 1.23 RATIO 2238) LIPID [id number] 00:00:00 Test Item Value Reference Range Interpretation Comments CHOLESTEROL (test code = 2210) 211 MG/DL TRIGLYCERIDES (test code = 2232) 52 MG/DL HDL CHOLESTEROL (test code = 2220) 90 MG/DL CALC LDL CHOL (test code = 2237) 111 MG/DL RISK RATIO LDL/HDL (test code = 1.23 RATIO 8) URIC [id number] 00:00:00 Test Item Value Reference Range Interpretation Comments URIC ACID (test code = 2233) 7.5 MG/DL URIC [id number] 00:00:00 Test Item Value Reference Range Interpretation Comments URIC ACID (test code = 2233) 7.5 MG/DL VITAMIN D, 25 [id number] 00:00:00 Test Item Value Reference Range Interpretation Comments VITAMIN D, 25 OH (test code = 4958) 36 NG/ML VITAMIN D, 25 [id number] 00:00:00 Test Item Value Reference Range Interpretation Comments VITAMIN D, 25 OH (test code = 4958) 36 NG/ML URIC [id number] 00:00:00 Test Item Value Reference Range Interpretation Comments URIC ACID (test code = 2233) 7.5 MG/DL URIC [id number] 00:00:00 Test Item Value Reference Range Interpretation Comments URIC ACID (test code = 2233) 7.5 MG/DL VITAMIN D, 25 [id number] 00:00:00 Test Item Value Reference Range Interpretation Comments VITAMIN D, 25 OH (test code = 4958) 36 NG/ML VITAMIN D, 25 [id number] 00:00:00 Test Item Value Reference Range Interpretation Comments VITAMIN D, 25 OH (test code = 4958) 36 NG/ML URIC [id number] 00:00:00 Test Item Value Reference Range Interpretation Comments URIC ACID (test code = 2233) 7.5 MG/DL VITAMIN D, 25 [id number] 00:00:00 Test Item Value Reference Range Interpretation Comments VITAMIN D, 25 OH (test code = 4958) 36 NG/ML URIC [id number] 00:00:00 Test Item Value Reference Range Interpretation Comments URIC ACID (test code = 2233) 7.5 MG/DL URIC [id number] 00:00:00 Test Item Value Reference Range Interpretation Comments URIC ACID (test code = 2233) 7.5 MG/DL VITAMIN D, 25 [id number] 00:00:00 Test Item Value Reference Range Interpretation Comments VITAMIN D, 25 OH (test code = 4958) 36 NG/ML VITAMIN D, 25 [id number] 00:00:00 Test Item Value Reference Range Interpretation Comments VITAMIN D, 25 OH (test code = 4958) 36 NG/ML C-REACTIVE [id number] 00:00:00 Test Item Value Reference Range Interpretation Comments C-REACTIVE PROTEIN (test code = 0.3 MG/DL 3513) C-REACTIVE [id number] 00:00:00 Test Item Value Reference Range Interpretation Comments C-REACTIVE PROTEIN (test code = 0.3 MG/DL 3513) RHEUMATOID FACTOR, [id number] 00:00:00 Test Item Value Reference Range Interpretation Comments RHEUMATOID FACTOR, QUANT (test code <10 IU/ML = 3502) RHEUMATOID FACTOR, [id number] 00:00:00 Test Item Value Reference Range Interpretation Comments RHEUMATOID FACTOR, QUANT (test code <10 IU/ML = 3502) RHEUMATOID FACTOR, [id number] 00:00:00 Test Item Value Reference Range Interpretation Comments RHEUMATOID FACTOR, QUANT (test code <10 IU/ML = 3502) SEDIMENTATION [id number] 00:00:00 Test Item Value Reference Range Interpretation Comments SEDIMENTATION RATE (test code = 117 MM/HOUR 1017) SEDIMENTATION [id number] 00:00:00 Test Item Value Reference Range Interpretation Comments SEDIMENTATION RATE (test code = 117 MM/HOUR 1017) C-REACTIVE [id number] 00:00:00 Test Item Value Reference Range Interpretation Comments C-REACTIVE PROTEIN (test code = 0.3 MG/DL 3513) C-REACTIVE [id number] 00:00:00 Test Item Value Reference Range Interpretation Comments C-REACTIVE PROTEIN (test code = 0.3 MG/DL 3513) RHEUMATOID FACTOR, [id number] 00:00:00 Test Item Value Reference Range Interpretation Comments RHEUMATOID FACTOR, QUANT (test code <10 IU/ML = 3502) RHEUMATOID FACTOR, [id number] 00:00:00 Test Item Value Reference Range Interpretation Comments RHEUMATOID FACTOR, QUANT (test code <10 IU/ML = 3502) RHEUMATOID FACTOR, [id number] 00:00:00 Test Item Value Reference Range Interpretation Comments RHEUMATOID FACTOR, QUANT (test code <10 IU/ML = 3502) SEDIMENTATION [id number] 00:00:00 Test Item Value Reference Range Interpretation Comments SEDIMENTATION RATE (test code = 117 MM/HOUR 1017) SEDIMENTATION [id number] 00:00:00 Test Item Value Reference Range Interpretation Comments SEDIMENTATION RATE (test code = 117 MM/HOUR 1017) C-REACTIVE [id number] 00:00:00 Test Item Value Reference Range Interpretation Comments C-REACTIVE PROTEIN (test code = 0.3 MG/DL 3513) RHEUMATOID FACTOR, [id number] 00:00:00 Test Item Value Reference Range Interpretation Comments RHEUMATOID FACTOR, QUANT (test code <10 IU/ML = 3502) RHEUMATOID FACTOR, [id number] 00:00:00 Test Item Value Reference Range Interpretation Comments RHEUMATOID FACTOR, QUANT (test code <10 IU/ML = 3502) SEDIMENTATION [id number] 00:00:00 Test Item Value Reference Range Interpretation Comments SEDIMENTATION RATE (test code = 117 MM/HOUR 1017) C-REACTIVE [id number] 00:00:00 Test Item Value Reference Range Interpretation Comments C-REACTIVE PROTEIN (test code = 0.3 MG/DL 3513) C-REACTIVE [id number] 00:00:00 Test Item Value Reference Range Interpretation Comments C-REACTIVE PROTEIN (test code = 0.3 MG/DL 3513) RHEUMATOID FACTOR, [id number] 00:00:00 Test Item Value Reference Range Interpretation Comments RHEUMATOID FACTOR, QUANT (test code <10 IU/ML = 3502) RHEUMATOID FACTOR, [id number] 00:00:00 Test Item Value Reference Range Interpretation Comments RHEUMATOID FACTOR, QUANT (test code <10 IU/ML = 3502) RHEUMATOID FACTOR, [id number] 00:00:00 Test Item Value Reference Range Interpretation Comments RHEUMATOID FACTOR, QUANT (test code <10 IU/ML = 3502) SEDIMENTATION [id number] 00:00:00 Test Item Value Reference Range Interpretation Comments SEDIMENTATION RATE (test code = 117 MM/HOUR 1017) SEDIMENTATION [id number] 00:00:00 Test Item Value Reference Range Interpretation Comments SEDIMENTATION RATE (test code = 117 MM/HOUR 1017)
[2022-03-08] MEDS ORDERED: ACETAMINOPHEN 325 MG TABLET ONE (11:39)
--- NOTE | 2022-03-08 13:04 | ER ---
Nurse's Notes [facility] Name: Charito Michael Age: 57 yrs Sex: Female : 1965 Arrival Date: 03/08/2022 Time: 10:25 Bed 10 Private MD: Diagnosis: Disorder of teeth and supporting structures, unspecified;Dorsalgia, unspecified;Nasal congestion;Acute pharyngitis, unspecified Presentation: 03/08 10:35 Chief complaint: Patient states: "My throat is sore and my gums are sore". Pt states "I aa5 also have back pain and I can't sleep at night because of the pain". Reports ramya ear pain. Coronavirus screen: sore throat. Ebola Screen: Patient denies travel to an Ebola-affected area in the 21 days before illness onset. Initial Sepsis Screen: Does the patient meet any 2 criteria? No. Patient's initial sepsis screen is negative. Does the patient have a suspected source of infection? No. Patient's initial sepsis screen is negative. Risk Assessment: Do you want to hurt yourself or someone else? Patient reports no desire to harm self or others. Onset of symptoms was March 08, 2022. 10:35 Acuity: GIULIANO 3 aa5 10:35 Method Of Arrival: Ambulatory aa5 Historical: - Allergies: 10:35 NKA; aa5 - PMHx: 10:35 Back pain; CHF; Chronic pain; COPD; HIV; Hypercholesterolemia; Hypertension; seasonal aa5 allergies; - PSHx: 10:35 Total abdominal hysterectomy; aa5 - Immunization history:: Adult Immunizations unknown. - Social history:: Smoking status: Patient denies any tobacco usage or history of. Vital Signs: 10:35 BP 144 / 94; Pulse 84; Resp 18 S; Temp 97.5(TE); Pulse Ox 100% on R/A; Weight 47.63 kg aa5 (R); Height 5 ft. 3 in. (160.02 cm) (R); 10:35 Body Mass Index 18.60 (47.63 kg, 160.02 cm) aa5 ED Course: 10:25 Patient arrived in ED. as 10:27 Chi Holder PA is PHCP. cp 10:27 Marc Esparza MD is Attending Physician. cp 10:35 Arm band placed on. aa5 10:37 Triage completed. aa5 11:32 Kelly Deleon, RN is Primary Nurse. iw 11:42 COVID-19/FLU A+B Sent. iw 11:42 Strep Sent. iw Administered Medications: 11:37 Drug: Tylenol 650 mg Route: PO; iw Outcome: 13:03 Discharge ordered by . javier 13:12 Patient left the ED. iw Signatures: Isabel Abraham as Kelly Deleon, RN HALLE iw Lynne Rowland RN RN aa5 Chi Holder PA PA cp Corrections: (The following items were deleted from the chart) 10:38 10:35 Chief complaint: Patient states: "My throat is sore and my gums are sore". Pt aa5 states "I also have back pain and I can't sleep at night because of the pain". aa5
--- NOTE | 2022-03-08 13:04 | EDPHYS ---
Physician Documentation [facility] Name: Charito Michael Age: 57 yrs Sex: Female : 1965 Arrival Date: 03/08/2022 Time: 10:25 Bed 10 Private MD: ED Physician Marc Esparza HPI: 03/08 11:45 This 57 yrs old Black Female presents to ER via Ambulatory with complaints of Cold cp Symptoms, Ear Pain, Back Pain. 11:45 The patient presents with pain. cp 11:45 The problem is located in the diffusely. Duration: The symptoms are continuous. cp Associated signs and symptoms: Pertinent positives: back pain. Historical: - Allergies: 10:35 NKA; aa5 - PMHx: 10:35 Back pain; CHF; Chronic pain; COPD; HIV; Hypercholesterolemia; Hypertension; seasonal aa5 allergies; - PSHx: 10:35 Total abdominal hysterectomy; aa5 - Immunization history:: Adult Immunizations unknown. - Social history:: Smoking status: Patient denies any tobacco usage or history of. ROS: 11:50 Constitutional: Negative for body aches, chills, fever, poor PO intake. cp 11:50 Eyes: Negative for injury, pain, redness, and discharge. cp 11:50 ENT: Positive for dental pain, ear pain, sore throat, nasal congestion, Negative for drainage from ear(s). 11:50 Cardiovascular: Negative for chest pain, edema, palpitations. 11:50 Respiratory: Positive for cough, Negative for shortness of breath. 11:50 Abdomen/GI: Negative for abdominal pain, vomiting, diarrhea, constipation. 11:50 Back: Positive for pain at rest, pain with movement. 11:50 : Negative for urinary symptoms. 11:50 Neuro: Negative for altered mental status, headache, weakness. 11:50 All other systems are negative. Exam: 11:55 Constitutional: The patient appears in no acute distress, alert, awake, cp non-diaphoretic, non-toxic, well developed, frail. 11:55 Head/Face: Normocephalic, atraumatic. cp 11:55 Eyes: Periorbital structures: appear normal, Conjunctiva: normal, no exudate, no injection, Sclera: no appreciated abnormality, Lids and lashes: appear normal, bilaterally. 11:55 ENT: External ear(s): are unremarkable, Ear canal(s): are normal, clear, TM's: dullness, bilaterally, Nose: is normal, Mouth: Lips: moist, Oral mucosa: moist, Gums: reddened, swollen, Tongue: is normal, Posterior pharynx: Airway: no evidence of obstruction, patent, Tonsils: are normal in appearance, exudate, is not appreciated, Dental exam: abscess, is not appreciated, missing teeth, diffusely. 11:55 Neck: ROM/movement: is normal, is supple, without pain, no range of motions limitations, no meningismus, Lymph nodes: no appreciated lymphadenopathy. 11:55 Chest/axilla: Inspection: normal. 11:55 Cardiovascular: Rate: normal, Rhythm: regular. 11:55 Respiratory: the patient does not display signs of respiratory distress, Respirations: normal, no use of accessory muscles, no retractions, labored breathing, is not present, Breath sounds: are clear throughout, no decreased breath sounds, no stridor, no wheezing. 11:55 Abdomen/GI: Inspection: abdomen appears normal, Palpation: abdomen is soft and non-tender, in all quadrants. 11:55 Back: pain, that is mild, of the left scapular area, right scapular area, left subscapular area, right subscapular area, left mid back and right mid back, ROM is normal. 11:55 Neuro: Orientation: to person, place \T\ time. Mentation: is normal, Motor: moves all fours, strength is normal, Sensation: is normal. Vital Signs: 10:35 BP 144 / 94; Pulse 84; Resp 18 S; Temp 97.5(TE); Pulse Ox 100% on R/A; Weight 47.63 kg aa5 (R); Height 5 ft. 3 in. (160.02 cm) (R); 10:35 Body Mass Index 18.60 (47.63 kg, 160.02 cm) aa5 MDM: 11:02 Patient medically screened. 03/08 11:20 Order name: Strep; Complete Time: 12:41 03/08 12:41 Interpretation: Reviewed. 03/08 11:20 Order name: COVID-19/FLU A+B 03/08 12:41 Order name: Throat Culture EDMS Administered Medications: 11:37 Drug: Tylenol 650 mg Route: PO; iw Disposition: 13:31 I reviewed the patient's care provided by the Advanced Practice Provider and agree with jr11 the diagnosis and treatment plan. Disposition Summary: 03/08/22 13:03 Discharge Ordered Location: Home cp Problem: new cp Symptoms: are unchanged cp Condition: Stable cp Diagnosis - Disorder of teeth and supporting structures, unspecified cp - Dorsalgia, unspecified cp - Nasal congestion cp - Acute pharyngitis, unspecified cp Followup: cp - With: Private Physician - When: 2 - 3 days - Reason: Recheck today's complaints Discharge Instructions: - Discharge Summary Sheet cp - Dental Pain cp - Pharyngitis cp - Sore Throat cp - Back Exercises cp - Musculoskeletal Pain cp Forms: - Medication Reconciliation Form cp - Thank You Letter cp - Antibiotic Education cp - Prescription Opioid Use cp Prescriptions: - Flonase Allergy Relief 50 mcg/actuation Nasal spray,suspension - spray 1 spray by INTRANASAL route once daily; 1 Device; Refills: 0, Product cp Selection Permitted - Peridex 0.12 % Mucous Membrane mouthwash - place 15 milliliter by MUCOUS MEMBRANE route 2 times per day (after meals), cp swish in mouth for 30 seconds then spit out; 1 bottle; Refills: 0, Product Selection Permitted - Mobic 7.5 mg Oral Tablet - take 1 tablet by ORAL route once daily take with food; 20 tablet; Refills: 0, cp Product Selection Permitted Signatures: Dispatcher [employer] Kelly Arauz RN RN iw Calderon, Audri, RN RN aa5 Chi Holder PA PA cp Rosillo, Jose, MD MD [email or web address]
[2022-03-08 13:10] LABS: SARS-COV-2 RT PCR NEGATIVE (NEGATIVE)
[2022-03-08 13:25] VITALS: BP 144/94; TEMP 97.5; O2SAT 100
== END 2022-03-08 13:12 | disposition home or self-care (01) ==
LOC: ER 10:22
DX: M54.9 Dorsalgia, unspecified (principal); R09.81 Nasal congestion; J02.9 Acute pharyngitis, unspecified; K08.9 Disorder of teeth and supporting structures, unspecified; Z20.822 Contact with and (suspected) exposure to COVID-19; I10 Essential (primary) hypertension
CPT/HCPCS: 87070; 87081; 0240U; 99283

== ENCOUNTER 2023-10-09 12:43 | Emergency (ER) | payer OTHER ==
--- NOTE | 2023-10-09 13:08 | ER ---
Nurse's Notes [facility] Name: Charito Michael Age: 58 yrs Sex: Female : 1965 Arrival Date: 10/09/2023 Time: 12:43 Bed IW1 Private MD: Diagnosis: Low back pain Presentation: 10/08 12:52 Chief complaint: Patient states: low back pain since yesterday , no injury , I have a iw doctor appt at 2 today with my pain management doctor. Coronavirus screen: At this time, the client does not indicate any symptoms associated with coronavirus-19. Ebola Screen: No symptoms or risks identified at this time. Initial Sepsis Screen: Does the patient meet any 2 criteria? No. Patient's initial sepsis screen is negative. Does the patient have a suspected source of infection? No. Patient's initial sepsis screen is negative. Risk Assessment: Do you want to hurt yourself or someone else? Patient reports no desire to harm self or others. 12:52 Method Of Arrival: Wheelchair iw 12:52 Acuity: GIULIANO 4 iw 12:54 Onset of symptoms was October 09, 2023. iw Triage Assessment: 13:00 General: Appears in no apparent distress. Behavior is calm, cooperative. iw Historical: - Allergies: 12:54 NKA; iw - PMHx: 12:54 seasonal allergies; Chronic pain; Back pain; Hypercholesterolemia; HIV; Hypertension; iw CHF; COPD; - Social history:: Smoking status: Patient denies any tobacco usage or history of. Screenin:20 [facility] ED Fall Risk Assessment (Adult) History of falling in the last 3 months, iw including since admission Yes- single mechanical fall (1 pt) Confusion or Disorientation No (0 pts) Intoxicated or Sedated No (0 pts) Impaired Gait No (0 pts) Mobility Assist Device Used No (0 pt) Altered Elimination No (0 pt) Score/Fall Risk Level 0 - 2 = Low Risk Oriented to surroundings. Abuse screen: Denies threats or abuse. Denies injuries from another. Nutritional screening: No deficits noted. Tuberculosis screening: No symptoms or risk factors identified. Assessment: 13:00 General: Appears in no apparent distress. Behavior is calm, cooperative. Pain: iw Complains of pain in right low back and left low back. Neuro: Level of Consciousness is awake, alert, obeys commands, Oriented to person, place, time, Moves all extremities. Cardiovascular: Patient's skin is warm and dry. Respiratory: Respiratory effort is even, unlabored, Respiratory pattern is symmetrical. Derm: Skin is intact, is healthy with good turgor. Vital Signs: 12:52 BP 119 / 75; Pulse 87; Resp 16; Temp 97.1; Pulse Ox 98% on R/A; Pain 5/10; iw 12:53 Weight 68.04 kg; Height 5 ft. 3 in. ; Pain 5/10; iw 12:53 Body Mass Index 26.57 (68.04 kg, 160.02 cm) iw 12:52 Pain Scale: Adult iw 12:53 Pain Scale: Adult iw ED Course: 12:45 Patient arrived in ED. ra3 12:46 Francisco Jaeger DO is Attending Physician. ms3 12:53 Triage completed. iw 13:00 Arm band placed on. iw 13:09 Kelly Deleon RN is Primary Nurse. iw 13:20 No provider procedures requiring assistance completed. Patient did not have IV access iw during this emergency room visit. Administered Medications: 13:18 Drug: HYDROcodone-acetaminophen PO 5 mg-325 mg 1 tabs PO once Route: PO; iw 13:18 Follow up: Response: No adverse reaction; Medication administered at discharge. iw 13:21 Follow up: Response: Medication Administered at Departure iw Medication: 13:00 VIS not applicable for this client. iw Outcome: 13:07 Discharge ordered by . ms3 13:21 Patient left the ED. iw 20:02 Discharged to home ambulatory, iw 20:02 Condition: good 20:02 Discharge instructions given to patient, Instructed on discharge instructions, follow up and referral plans. Signatures: Kelly Deleon, HALLE RN iw Francisco Jaeger DO DO ms3 Kait Miles ra3
--- NOTE | 2023-10-09 13:08 | EDPHYS ---
Physician Documentation [facility] Name: Charito Michael Age: 58 yrs Sex: Female : 1965 Arrival Date: 10/09/2023 Time: 12:43 Bed IW1 Private MD: ED Physician Francisco Jaeger HPI: 10/08 13:00 This 58 yrs old Black Female presents to ER via Wheelchair with complaints of Low Back ms3 Pain. 13:00 58-year-old female past medical history of chronic back pain, hypercholesterolemia, ms3 HIV, hypertension, congestive heart failure, seasonal allergies presents to the emergency department for low back pain. Patient states she has had back pain for years and the pain became worse yesterday when she ran out of her Vicodin. Patient states she has appointment with her pain management physician today at 2 PM. Historical: - Allergies: 12:54 NKA; iw - PMHx: 12:54 seasonal allergies; Chronic pain; Back pain; Hypercholesterolemia; HIV; Hypertension; iw CHF; COPD; - Social history:: Smoking status: Patient denies any tobacco usage or history of. ROS: 13:00 Constitutional: Negative for fever, and chills. Cardiovascular: Negative for chest ms3 pain, and palpitations. Respiratory: Negative for shortness of breath, cough, wheezing, and pleuritic chest pain, Abdomen/GI: Negative for abdominal pain, nausea, vomiting, diarrhea, and constipation, 13:00 Back: Positive for pain with movement, Exam: 13:00 Constitutional: This is a well developed, well nourished patient who is awake, alert, ms3 and in no acute distress. Neck: Trachea midline, no cervical lymphadenopathy. Supple, full range of motion without nuchal rigidity, or vertebral point tenderness. No Meningismus. Chest/axilla: Normal chest wall appearance and motion. Nontender with no deformity. Cardiovascular: Regular rate and rhythm with a normal S1 and S2. No gallops, murmurs, or rubs. Normal PMI, no JVD. No pulse deficits. Respiratory: Lungs have equal breath sounds bilaterally, clear to auscultation and percussion. No rales, rhonchi or wheezes noted. No increased work of breathing, no retractions or nasal flaring. Abdomen/GI: Soft, non-tender, with normal bowel sounds. No distension or tympany. No guarding or rebound. No evidence of tenderness throughout. Skin: Warm, dry with normal turgor. Normal color with no rashes, no lesions, and no evidence of cellulitis. 13:00 Back: pain, that is severe, of the left low back and right low back, Vital Signs: 12:52 BP 119 / 75; Pulse 87; Resp 16; Temp 97.1; Pulse Ox 98% on R/A; Pain 5/10; iw 12:53 Weight 68.04 kg; Height 5 ft. 3 in. ; Pain 5/10; iw 12:53 Body Mass Index 26.57 (68.04 kg, 160.02 cm) iw 12:52 Pain Scale: Adult iw 12:53 Pain Scale: Adult iw MDM: 13:00 Differential diagnosis: arthritis, strain, Herniated disc. Data reviewed: vital signs, ms3 nurses notes, and as a result, I will discharge patient. I considered the following discharge prescriptions or medication management in the emergency department Medications were administered in the Emergency Department. See MAR. Counseling: I had a detailed discussion with the patient and/or guardian regarding the historical points, exam findings, and any diagnostic results supporting the discharge/admit diagnosis, the need for outpatient follow up, to return to the emergency department if symptoms worsen or persist or if there are any questions or concerns that arise at home. Special discussion: I discussed with the patient/guardian in detail that at this point there is no indication for admission to the hospital. It is understood, however, that if the symptoms persist or worsen the patient needs to return immediately for re-evaluation. ED course: Patient declines labs as the bus will be coming in 30 minutes and she does not want to miss her pain management appointment. Patient without saddle anesthesia or bowel or bladder incontinence. Patient to follow-up with pain management as scheduled at 2 PM. All questions were answered. Return precautions discussed include worsening symptoms, or any other concerns. 13:07 Patient medically screened. ms3 Administered Medications: 13:18 Drug: HYDROcodone-acetaminophen PO 5 mg-325 mg 1 tabs PO once Route: PO; iw 13:18 Follow up: Response: No adverse reaction; Medication administered at discharge. iw 13:21 Follow up: Response: Medication Administered at Departure iw Disposition Summary: 10/09/23 13:07 Discharge Ordered Notes: Location: Home ms3 Condition: Stable ms3 Diagnosis - Low back pain ms3 Followup: ms3 - With: Private Physician - When: Today - Reason: Discharge Instructions: - Discharge Summary Sheet ms3 - Acute Back Pain, Adult ms3 Forms: - Medication Reconciliation Form ms3 - Antibiotic Education ms3 - Prescription Opioid Use ms3 - Patient Portal Instructions ms3 - Leadership Thank You Letter ms3 Signatures: Kelly Deleon RN RN iw Francisco Jaeger DO DO ms3
--- OUTSIDE RECORDS SUMMARY | 2023-10-09 13:11 | XMS REPORT | Continuity of Care Document ---
Author Name Unknown Address [address] [facility] [address] [place] [address] [facility] thconnect Address [address] [facility] [address] [place] [address] Care Team Providers Care Annual Greenhouse Manager Name Role Phone Delfino Schumacher [facility] Care Physician Zaria Orellana Attending Clinician Unavail able Bradley WALKER, Lianet Funes Attending Clinician +- [phone] Lj Paredes RN Attending Clinician Unavail able KVNG ROBERSON Attending Clinician Unavailable Anyi Hearn NP Attending Clinician [phone] Kvng Roberson DO Attending Clinician [phone] GASTON HOBBS Attending Clinician Unavailable Gaston Hobbs MD Attending Clinician [phone] Kasandra Cha Attending Clinician [phone] LEE HENDERSON Attending Clinician Unavailab CLARITZA Booth Attending Clinician Unavail able Doctor Unassigned, [place] Attending Clinician U iván Almaguer RN, Jeanine Jones Attending Clinician Unava ilGuerline Zafar MD Attending Clinician + [phone] Guero Pantoja Attending Clinician [phone] GUERO MARTINEZ Attending Clinician Unavailable Jeanie NERI, Osman Loya Attending Clinician Unavaila harvey RODRIGUEZ Attending Clinician Unavailable Av Attending Clinician Unavailable APOLINAR WEBER Attending Clinician Unavailable Pgy2 Attending Clinician Unavailable Apolinar Weber MD Attending Clinician + [phone] Enedina Mccarty MD Attending Clinician [phone] BILLY VALERIO Attending Clinician UnavailToby Madden MD Attending Clinician + [phone] Delores Garcia MD, Tressa Schwartz Attending Clinician +[phone] Billy Valerio MD Attending Clinician + [phone] Evette Dunn MA Attending Clinician Unavailab KENNEDI Pop Attending Clinician Unavailable Kennedi Blue NP Attending Clinician + [phone] Mikael Quiroz Attending Clinician + [phone] LJ LIANG Attending Clinician Unavailable Lj Mcguire Attending Clinician + [phone] MARGARET NUNEZ Attending Clinician Unavailab Margaret Rodgers DO Attending Clinician [phone] Bonny oMrris MD K.H. Attending Clinician + [phone] BONNY MORRIS K.HAg Attending Clinician Unavaila eTrri Clemente Attending Clinician [phone] Dawn Mendoza Attending Clinician [phone] Maggie_Tressa Attending Clinician Unavailable Josse Steele Attending Clinician [phone] JOSSE LOCKHART Attending Clinician Unavaila KVNG Weber Admitting Clinician Unavailable Kvng Roberson DO Admitting Clinician [phone] GASTON HOBBS Admitting Clinician Unavailable JENNIFER Admitting Clinician Unavailable Av Admitting Clinician Unavailable Tressa ESTRELLA JR Admitting Clinician Unavaila harvey Estrella Jr., MD, Tressa Schwartz Admitting Clinician [phone] KENNEDI BLUE Admitting Clinician Unavailable Sammi Admitting Clinician Unavailable Payers Payer Name Policy Type Policy Number Effective Date Expirati on Date Source FORMERLY [facility] (MEDICARE REPLACEMENT HMO) [id number] 2020 00:00:00 Problems Condition Name Condition Details Condition Category Status Onset Date Resolution Date Last Treatment Date Treating Clinician Comments Source COPD exacerbati on COPD exacerbati on Disease Active 05-18 00:00: 00 [facility] Troponin I above reference range Troponin I above reference range Disease Active 05-18 00:00: 00 [facility] Primary hypertensi on Primary hypertensi on Disease Active 05-18 00:00: 00 [facility] Other hyperlipid emia Other hyperlipid emia Disease Active 05-18 00:00: 00 [facility] TAIWO (acute kidney injury) TAIWO (acute kidney injury) Disease Active 05-18 00:00: 00 [facility] Aortic stenosis Aortic stenosis Disease Active 05-18 00:00: 00 [facility] Coronary artery disease involving [place] coronary artery of [place] heart without angina pectoris Coronary artery disease involving [place] coronary artery of [place] heart without angina pectoris Disease Active 05-18 00:00: 00 [facility] Acute cough Acute cough Disease Active 05-15 00:00: 00 [facility] 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 Active 517 00:00: 00 [facility] Murmur, cardiac Murmur, cardiac Disease Active 430 00:00: 00 [facility] Bacteremia Bacteremia Disease Active 06-09 00:00: 00 [facility] Medically noncomplia nt Medically noncomplia nt Disease Active 09-02 00:00: 00 [facility] Thrush Thrush Disease Active 09-02 00:00: 00 [facility] Obesity (BMI 30-39.9) Obesity (BMI 30-39.9) Disease Active 05-31 00:00: 00 [facility] Genital warts Genital warts Disease Active 08-25 00:00: 00 [facility] H/O: hysterecto my H/O: hysterecto my Disease Active 08-25 00:00: 00 [facility] HIV (human immunodefi ciency virus infection) HIV (human immunodefi ciency virus infection) Disease Active 2011-02 00:00: 00 [facility] Allergies, Adverse Reactions, Alerts Allergy Name Allergy Type Status Severity Reaction(s) Onset Date Inactive Date Treating Clinician Comments Source NO KNOWN ALLERGIE S Drug Class Active [facility] Social History Social Habit Start Date Stop Date Quantity Comments Source Gender identity [facility] intake 2023-05-16 00:00:00 2023-05-16 00:00:00 Current non-drinker of alcohol (finding) [facility] Alcohol intake 2023-05-16 00:00:00 2023-05-16 00:00:00 Current non-drinker of alcohol (finding) [facility] Exposure to SARS-CoV-2 (event) 2022-03-24 00:00:00 2022-04-03 13:07:00 Not sure [facility] History of Social function 2022-04-03 00:00:00 2022-04-03 00:00:00 [facility] Tobacco use and exposure 2022-04-03 00:00:00 2022-04-03 00:00:00 Smokeless tobacco non-user [facility] Sex assigned at 1965 00:00:00 1965 00:00:00 [facility] Smoking Status Start Date Stop Date Source Never smoked tobacco [facility] Medications Ordered Medication Name Filled Medication Name Start Date Stop Date Current Medication? Ordering Clinician Indication Dosage Frequency Signature (SIG) Comments Components Source albuterol sulfate HFA 90 mcg/actuati on aerosol inhaler 8-13 00:00: 00 Yes mcg/act uation Delfino Orta losartan 100 mg-hydrochl orothiazide 12.5 mg tablet 0 8-13 00:00: 00 Yes 1mg Delfino Orta amlodipine 10 mg tablet 0 8-13 00:00: 00 Yes 1mg Delfino Orta baclofen 5 mg tablet 0 8- 00:00: 00 Yes 1mg Delfino Orta trazodone 50 mg tablet 0 - 00:00: 00 Yes 12mg Delfino Orta atorvastati n 40 mg tablet 0 - 00:00: 00 Yes 1mg Delfino Orta albuterol sulfate HFA 90 mcg/actuati on aerosol inhaler 0 8-05 00:00: 00 Yes mcg/act uation Delfino Orta amlodipine 10 mg tablet 0 - 00:00: 00 Yes 1mg Delfino Orta losartan 100 mg-hydrochl orothiazide 12.5 mg tablet 0 8-05 00:00: 00 Yes 1mg Delfino Orta baclofen 5 mg tablet 0 8-05 00:00: 00 Yes 1mg Delfino Orta atorvastati n 40 mg tablet 0 - 00:00: 00 Yes 1mg Delfino Orta trazodone 50 mg tablet 0 8- 00:00: 00 Yes 12mg Delfino Orta albuterol sulfate HFA 90 mcg/actuati on aerosol inhaler 0 09-09 00:00: 00 Yes mcg/act uation Delfino Orta amlodipine 10 mg tablet 0 7- 00:00: 00 Yes 1mg Delfino Orta losartan 100 mg-hydrochl orothiazide 12.5 mg tablet 0 - 00:00: 00 Yes 1mg Delfino Orta baclofen 5 mg tablet 0 09-09 00:00: 00 Yes 1mg Delfino Orta trazodone 50 mg tablet 0 09-09 00:00: 00 Yes 12mg Delfino Orta atorvastati n 40 mg tablet 0 09-09 00:00: 00 Yes 1mg Delfino Orta buprenorphi ne 4 mg-naloxone 1 mg sublingual film 0 - 00:00: 00 Yes 1mg Delfino Orta losartan 100 mg-hydrochl orothiazide 12.5 mg tablet 09-01 00:00: 00 Yes 1mg Delfino Orta albuterol sulfate HFA 90 mcg/actuati on aerosol inhaler 08-30 00:00: 00 Yes mcg/act uation Delfino Orta triamcinolo ne acetonide 0.1 % topical cream 08-30 00:00: 00 Yes 1% Delfino Orta amoxicillin 500 mg tablet 08-30 00:00: 00 Yes 1mg Delfino Orta baclofen 5 mg tablet 08-30 00:00: 00 Yes 1mg Delfino Orta melatonin 10 mg tablet 08-30 00:00: 00 Yes 1mg Delfino Orta fluticasone propionate 50 mcg/actuati on nasal spray,suspe nsion 08-30 00:00: 00 Yes 2mcg/ac tuation Delfino Orta albuterol sulfate HFA 90 mcg/actuati on aerosol inhaler 08-27 00:00: 00 Yes mcg/act uation Delfino Orta triamcinolo ne acetonide 0.1 % topical cream 08-27 00:00: 00 Yes 1% Delfino Orta amoxicillin 500 mg tablet 08-27 00:00: 00 Yes 1mg Delfino Orta baclofen 5 mg tablet 08-27 00:00: 00 Yes 1mg Delfino Orta melatonin 10 mg tablet 08-27 00:00: 00 Yes 1mg Delfino Orta fluticasone propionate 50 mcg/actuati on nasal spray,suspe nsion 08-27 00:00: 00 Yes 2mcg/ac tuation Delfino Orta Qvar RediHaler 80 mcg/actuati on HFA breath activated aerosol 08-22 00:00: 00 Yes 12mcg/a ctuatio n Delfino Orta baclofen 5 mg tablet 08-22 00:00: 00 Yes 1mg Delfino Orta baclofen 5 mg tablet 7- 00:00: 00 Yes 1mg Delfino Orta aspirin 81 mg tablet,ruchi yed release 08-08 00:00: 00 Yes mg Delfino Orta Biktarvy 50 mg-200 mg-25 mg tablet 08-08 00:00: 00 Yes mg Delfino Orta albuterol sulfate HFA 90 mcg/actuati on aerosol inhaler 08-08 00:00: 00 Yes mcg/act uation Delfino Orta Qvar RediHaler 80 mcg/actuati on HFA breath activated aerosol 08-08 00:00: 00 Yes 12mcg/a ctuatio n Delfino Orta amlodipine 10 mg tablet 08-08 00:00: 00 Yes 1mg Delfino Orta losartan 100 mg-hydrochl orothiazide 12.5 mg tablet 08-08 00:00: 00 Yes 1mg Delfino Orta atorvastati n 40 mg tablet 08-08 00:00: 00 Yes 1mg Delfino Orta trazodone 50 mg tablet 08-08 00:00: 00 Yes 12mg Delfino Orta triamcinolo ne acetonide 0.1 % topical cream 07-23 00:00: 00 Yes 1% Delfino Orta VALACYCLOVI R 1GM 06-06 00:00: 00 Yes Delfino Orta aspirin 81 mg tablet,ruchi yed release 06-03 00:00: 00 Yes mg Delfino Orta Biktarvy 50 mg-200 mg-25 mg tablet 06-03 00:00: 00 Yes mg Delfino Orta albuterol sulfate HFA 90 mcg/actuati on aerosol inhaler 06-03 00:00: 00 Yes mcg/act uation Delfino Orta Qvar RediHaler 80 mcg/actuati on HFA breath activated aerosol 06-03 00:00: 00 Yes 12mcg/a ctuatio n Delfino Orta amlodipine 10 mg tablet 06-03 00:00: 00 Yes 1mg Delfino Orta losartan 100 mg-hydrochl orothiazide 12.5 mg tablet 06-03 00:00: 00 Yes 1mg Delfino Orta atorvastati n 40 mg tablet 06-03 00:00: 00 Yes 1mg Delfino Orta trazodone 50 mg tablet 06-03 00:00: 00 Yes 12mg Delfino Orta TAKE 1 CAPSULE DAILY WITH FOOD. 06-03 00:00: 00 Yes 400 Delfino Orta amlodipine 10 mg tablet 05-22 00:00: 00 Yes mg Delfino Orta aspirin 81 mg EC tablet 05-20 00:00: 00 06-20 04:59 :00 No [id number] 81mg Take 1 tablet by mouth in the morning for 30 days. [facility] predniSONE 20 mg tablet 05-20 00:00: 00 05-24 04:59 :00 No [id number] 40mg Take 2 tablets by mouth in the morning for 3 days. [facility] ALPRAZOLAM ORAL 05-19 16:42: 32 Yes Take by mouth. [facility] celecoxib 400 mg capsule 05-19 16:42: 32 Yes 400mg Take 1 capsule by mouth in the morning. [facility] atorvastati n (LIPITOR) tablet 40 mg 05-19 02:00: 00 Yes 40mg 40 mg, Oral, QHS, First dose on 05/19/23 at 2100, Until Discontinu ed, Routine [facility] aspirin 81 mg tablet,ruchi yed release 05-19 00:00: 00 Yes mg Delfino Orta PREDNISONE 20MG 05-19 00:00: 00 Yes Delfino Orta budesonide 0.5 mg/2 mL nebulizer solution 05-19 00:00: 00 06-19 04:59 :00 No [id number] 1mg Inhale 4 mL every 12 (twelve) hours for 30 days. [facility] aspirin EC tablet 81 mg 05-18 20:45: 00 Yes 81mg 81 mg, Oral, DAILY, First dose on 05/19/23 at 1545, Until Discontinu ed, Routine [facility] predniSONE (DELTASONE) tablet 40 mg 05-18 14:00: 00 Yes 40mg 40 mg, Oral, DAILY, First dose on Sat05/19/23 at 0900, Until Discontinu ed, Routine [facility] methylpredn isolone sod succ (SOLU-MEDRO L) injection 125 mg 05-17 10:00: 00 05-17 14:54 :19 No 125mg 125 mg, Slow IV Push, Q6H ABX, First dose on 05/18/23 at 0500, Until Discontinu ed, Routine [facility] budesonide (PULMICORT RESPULE) nebulizer solution 1 mg 05-17 07:00: 00 Yes 1mg 1 mg, Inhalation , Q12H, First dose on 05/18/23 at 0200, Until Discontinu ed, Routine
bioinformatics team member approving non-formul fanta medication : LEFTY ABREU
[place] son for non-formul fanta use: Treatment failure with formulary alternativ e [facility] sulfamethox azole-trime thoprim (BACTRIM DS) 800-160 mg per tablet 1 tablet 05-17 01:00: 00 Yes 1{tbl} 1 tablet, Oral, QMON/SAT/ RI AT 1999, First dose on Sat05/17/23 at 1999, Until Discontinu ed, Routine
Reason for Anti-Infec tive: Empiric Non-Surgic al Prophylaxi s
Durat ion of therapy: 5 days [facility] predniSONE 20 mg tablet 05-17 00:00: 00 05-21 04:59 :00 No [id number] 20mg Take 1 tablet by mouth in the morning for 3 days. [facility] NaCl 0.9% (NS) IV infusion 1,000 mL 05-16 21:00: 00 Yes 1000mL at 75 mL/hr, IV Infusion, CONTINUOUS , Starting on Sat05/17/23 at 1600, Until Discontinu ed, Routine [facility] magnesium sulfate in water 2 gram/50 mL (4 %) infusion 2 g 05-16 18:45: 00 05-16 19:50 :00 No 2g 2 g, IV Piggyback, Administer over 60 Minutes, ONCE, 1 dose, On Sat05/17/23 at 1345, Routine [facility] losartan (COZAAR) tablet 100 mg 05-16 14:00: 00 Yes 100mg 100 mg, Oral, DAILY, First dose on Sat05/17/23 at 0900, Until Discontinu ed, Routine [facility] fluconazole (DIFLUCAN) tablet 200 mg 05-16 14:00: 00 Yes 200mg 200 mg, Oral, DAILY, First dose on Sat05/17/23 at 0900, Until Discontinu ed, ANTONIETTA
Re ason for Anti-Infec tive: Empiric Non-Surgic al Prophylaxi s
Durat ion of therapy: 5 days [facility] bictegrav-e mtricit-ten ofov ala (BIKTARVY) 50-200-25 mg tablet 1 tablet 05-16 14:00: 00 Yes 1{tbl} 1 tablet, Oral, DAILY, First dose on Sat05/17/23 at 0900, Until Discontinu ed, Routine
Medicatio n Name: bictegrav/ emtricit/t onofov ala
[place] gth of Therapy: Indefinite
Facult y member approving non-formul fanta medication : LEFTY ABREU
[place] son for non-formul fanta use: Patient supplied medication
Specif ic indication for non-formul fanta use: hiv
Use patient home supply? Yes
Dos age Form: Capsule [facility] predniSONE (DELTASONE) tablet 40 mg 05-16 14:00: 00 05-17 09:48 :38 No 40mg 40 mg, Oral, DAILY, 5 doses, First dose on Sat05/17/23 at 0900, Last dose on Sat05/21/23 at 0900, Routine [facility] metoprolol tartrate (LOPRESSOR) tablet 12.5 mg 05-16 13:00: 00 Yes 12.5mg 12.5 mg, Oral, BID, First dose on Sat05/17/23 at 0800, Until Discontinu ed, Routine [facility] fluticasone propionate (FLOVENT HFA) 220 mcg/actuati on inhaler 2 Puff 05-16 13:00: 00 Yes 2{puff} 2 Puff, Inhalation , Q12H, First dose on Sat05/17/23 at 0800, Until Discontinu ed, Routine
Is this order for a patient with suspected or confirmed COVID-19 infection? No [facility] cetirizine (ZYRTEC) tablet 10 mg 05-16 03:00: 00 Yes 10mg 10 mg, Oral, QHS, First dose on Sat05/16/23 at 2200, Until Discontinu ed [facility] amLODIPine (NORVASC) tablet 10 mg 05-16 03:00: 00 Yes 10mg 10 mg, Oral, DAILY, First dose on Sat05/16/23 at 2200, Until Discontinu ed, Routine [facility] heparin (porcine) injection 5,000 Units 05-16 03:00: 00 Yes 5000U 5,000 Units, Subcutaneo us, Q8H, First dose on Sat05/16/23 at 2200, Until Discontinu ed, Routine [facility] albuterol (VENTOLIN) inhaler 2 Puff 05-16 02:35: 18 Yes 2{puff} 2 Puff, Inhalation , Q6HPRN, Starting on Sat05/16/23 at 2135, Until Discontinu ed, Routine, Wheezing, Shortness of Breath [facility] ipratropium -albuteroL (DUONEB) 0.5 mg-3 mg(2.5 mg base)/3 mL nebulizer solution 3 mL 05-15 21:00: 00 05-15 18:01 :47 No 3mL 3 mL, Inhalation , QID, First dose on Sat05/16/23 at 1600, Until Discontinu ed, Routine [facility] azithromyci n (ZITHROMAX) 500 mg in NaCl 0.9% (NS) 250 mL VIAL-MATE IV piggyback 05-15 20:45: 00 05-17 20:23 :00 No 500mg 500 mg, IV Piggyback, Q24H ABX, 3 doses, First dose on Farrah 05/16/23 at 1545, Last dose on 05/18/23 at 1545, Administer over 60 Minutes, 250 mL
Reas on for Anti-Infec tive: Empiric Therapy for Suspected Infection< br>Empiric Therapy Site: Respirator y
Durat ion of therapy: 72 hours [facility] magnesium sulfate in water 2 gram/50 mL (4 %) infusion 2 g 05-15 19:45: 00 05-15 19:54 :00 No 2g 2 g, IV Piggyback, Administer over 60 Minutes, ONCE, 1 dose, On Farrah 05/16/23 at 1445, Routine [facility] albuterol (PROVENTIL) 2.5 mg /3 mL (0.083 %) nebulizer solution 7.5 mg 05-15 19:45: 00 05-15 18:54 :00 No 7.5mg 7.5 mg, Inhalation , ONCE, 1 dose, On Farrah 05/16/23 at 1445[facility] 650 mg 05-15 19:30: 37 Yes 650mg 650 mg, Oral, Q6HPRN, Starting on Farrah 05/16/23 at 1430, Until Discontinu ed, Routine, Pain (scale 1-3) [facility] NaCl 0.9% (NS) bolus infusion 1,000 mL 05-15 18:30: 00 05-15 19:34 :00 No 1000mL at 999 mL/hr, 1,000 mL, IV Infusion, ONCE, 1 dose, On Farrah 05/16/23 at 1330, [facility] budesonide (PULMICORT RESPULE) nebulizer solution 1 mg 05-15 18:15: 00 05-15 17:40 :00 No 1mg 1 mg, Inhalation , ONCE, 1 dose, On Farrah 05/16/23 at 1315, Routine [facility] albuterol (PROVENTIL) 2.5 mg /3 mL (0.083 %) nebulizer solution 5 mg 05-15 18:00: 00 05-15 18:03 :00 No 5mg 5 mg, Inhalation , ONCE, 1 dose, On Farrah 05/16/23 at 1315, STAT [facility] methylpredn isolone sod succ (SOLU-MEDRO L) injection 125 mg 05-15 17:31: 00 05-15 17:41 :00 No 125mg 125 mg, Intravenou s, ONCE, 1 dose, On Sat05/16/23 at 1245, ANTONIETTA [facility] sodium chloride (NS) injection 5 mL 05-15 17:25: 52 Yes 5mL 5 mL, Intravenou s, PRN, Starting on Sat05/16/23 at 1225, Until Discontinu ed, Routine, IV line flushing [facility] IBUPROFEN 600MG 05-12 00:00: 00 Yes 600 Delfino Orta losartan 100 mg-hydrochl orothiazide 12.5 mg tablet 05-08 00:00: 00 Yes mg Delfino Orta doxycycline hyclate 100 mg tablet 05-08 00:00: 00 Yes 1mg Delfino Orta fluconazole 150 mg tablet 05-08 00:00: 00 Yes 1mg Delfino Orta ALBUTEROL PA HFA 200 INH 05-08 00:00: 00 Yes Delfino Orta DOXYCYCL HYC 100MG 05-08 00:00: 00 Yes Delfino Orta ibuprofen 800 mg tablet 04-17 00:00: 00 Yes 1mg Delfino Orta TAKE 1 TABLET EVERY 12 HOURS DAILY. 04-17 00:00: 00 06-25 00:00 :00 No 1 Delfino Orta TAKE 1 TABLET BID NEEDED 04-17 00:00: 00 06-25 00:00 :00 No 600 Delfino Orta TAKE 1 TO 2 TABLETS AT BEDTIME 04-04 00:00: 00 Yes 50 Delfino Orta TAKE 1 CAPSULE DAILY WITH FOOD. 04-02 00:00: 00 Yes 400 Delfino Orta ALBUTEROL SULFATE HFA 108 (90 Base) MCG/ACT AERS 04-02 00:00: 00 Yes Delfino Orta TAKE 2 TABLETS ON DAY 1 THEN TAKE 1 TABLET A DAY FOR 4 DAYS. 04-02 00:00: 00 06-25 00:00 :00 No 250 Delfino Orta 1 CAP EVERY 8 HOURS NEEDED FOR COUGH 04-02 00:00: 00 06-25 00:00 :00 No 200 Delfino Orta TAKE 5 ML EVERY 4 TO 6 HOURS NEEDED. 04-02 00:00: 00 06-25 00:00 :00 No [id number] Delfino Orta TAKE 1 TABLET DAILY. 04-02 00:00: 00 06-25 00:00 :00 No 20 Delfino Orta naproxen (NAPROSYN) tablet 250 mg 03-20 23:00: 00 Yes 250mg 250 mg, Oral, BID MEALS, First dose on Sat03/20/23 at 1700, Until Discontinu ed, Routine [facility] albuterol sulfate HFA 90 mcg/actuati on aerosol inhaler 03-20 00:00: 00 Yes mcg/act uation Delfino Orta TAKE 1 TABLET BY MOUTH TWICE DAILY FOR 20 DOSES TAKE IN THE MORNINGS AND THE EVENINGS 03-20 00:00: 00 Yes Delfino Orta hydrocortis one 1%-nystatin -zinc oxide Oint ointment 03-20 00:00: 00 Yes [id number] Apply to affected area(s) as needed for Dermatitis /Rash. [facility] albuterol 90 mcg/actuati on inhaler 03-20 00:00: 00 Yes [id number] 2{puff} Inhale 2 Puffs every 6 (six) hours as needed for Wheezing or Shortness of Breath. [facility] naproxen 250 mg tablet 03-20 00:00: 00 03-31 05:59 :00 No [id number] 250mg Take 1 tablet by mouth in the morning and 1 tablet in the evening. Take with meals. Do all this for 20 doses. [facility] Qvar RediHaler 80 mcg/actuati on HFA breath activated aerosol 03-07 00:00: 00 Yes mcg/act uation Delfino Orta TAKE 1 TABLET DAILY. 03-07 00:00: 00 Yes 10 Delfino Orta TAKE 1 TABLET DAILY. 03-07 00:00: 00 Yes [id number] Delfino Orta TAKE 1 TABLET BY MOUTH DAILY 03-07 00:00: 00 Yes 40 Delfino Orta ALBUTEROL PA HFA 200 INH 03-07 00:00: 00 Yes Delfino Orta MELOXICAM 7.5MG 03-07 00:00: 00 Yes Delfino Orta Biktarvy 50 mg-200 mg-25 mg tablet 03-05 00:00: 00 Yes mg Delfino Orta atorvastati n 40 mg tablet 03-05 00:00: 00 Yes mg Delfino Orta TAKE 1 CAPSULE TWICE DAILY. 03-01 00:00: 00 06-25 00:00 :00 No 100 Delfino Orta TAKE 1 TABLET BID NEEDED 2022-02 00:00: 00 06-25 00:00 :00 No 600 Delfino Orta FLUTICASONE 50MCG RX SPR 2022-02 00:00: 00 Yes Delfino Orta SPRAY 1 SPRAY IN EACH NOSTRIL ONCE DAILY 2022-02 00:00: 00 06-25 00:00 :00 No 50 Delfino Orta TAKE 1 TABLET DAILY. 2022-02 00:00: 00 06-25 00:00 :00 No 75 Delfino Orta TAKE 1 TO 2 TABLETS AT BEDTIME 2022-02 00:00: 00 06-25 00:00 :00 No 50 Delfino Orta TAKE 1 TABLET AT BEDTIME. 2022-02 00:00: 00 06-25 00:00 :00 No 45 Delfino Orta ATORVASTATI N 40MG 2022-02 0 00:00: 00 Yes Delfino Orta CITALOPRAM 20MG 2022-02 0 00:00: 00 Yes Delfino Orta AMLODIPINE 10MG 2022-02 0 00:00: 00 Yes Delfino Orta LOSARTAN/HC T 100-12.5 2022-02 0 00:00: 00 Yes Delfino Orta sulfamethox azole 800 mg-trimetho prim 160 mg tablet 11-01 00:00: 00 Yes mg Delfino Orta INHALE 1 TO 2 PUFFS BY MOUTH EVERY 6 HOURS NEEDED. 11-01 00:00: 00 06-25 00:00 :00 No [id number] Delfino Orta TAKE 1 TO 2 TABLETS AT BEDTIME 10-18 00:00: 00 06-25 00:00 :00 No 50 Delfino Orta TAKE 1 TABLET BID NEEDED 10-04 00:00: 00 06-25 00:00 :00 No 600 Delfino Orta ALBUTEROL PA HFA 200 INH 10-02 00:00: 00 Yes Delfino Orta LOSARTAN/HC T 100-12.5 09-27 00:00: 00 Yes Delfino Orta AMLODIPINE 10MG 09-27 00:00: 00 Yes Delfino Orta MIRTAZAPINE 45MG 09-27 00:00: 00 Yes Delfino Orta QVAR REDIHAL 80MCG INH 09-27 00:00: 00 Yes Delfino Orta albuterol sulfate HFA 90 mcg/actuati on aerosol inhaler 09-18 00:00: 00 Yes mcg/act uation Delfino Orta ibuprofen (IBU) tablet 600 mg 09-17 18:00: 00 09-17 18:07 :00 No 600mg 600 mg, Oral, ONCE, 1 dose, On Sat09/17/22 at 1300, ANTONIETTA [facility] INHALE 2 PUFFS EVERY 4 HOURS NEEDED FOR WHEEZING OR SHORTNESS OF BREATH 09-17 00:00: 00 Yes Delfino Orta albuterol 90 mcg/actuati on inhaler 09-17 00:00: 00 Yes [id number] 2{puff} Inhale 2 Puffs every 4 (four) hours as needed for Wheezing or Shortness of Breath. [facility] ibuprofen 600 mg tablet 09-17 00:00: 00 Yes [id number] 600mg Take 1 tablet by mouth every 6 (six) hours as needed for Pain (scale 4-6). [facility] IBUPROFEN 600MG 09-17 00:00: 00 06-25 00:00 :00 No Delfino Orta TAKE 1 TABLET DAILY. 09-12 00:00: 00 06-25 00:00 :00 No [id number] Delfino Orta TAKE 1 TABLET DAILY. 09-12 00:00: 00 06-25 00:00 :00 No 10 Delfino Orta 1-2 PUFFS Q 12 HOURS 09-12 00:00: 00 06-25 00:00 :00 No 80 Delfino Orta TAKE 1 TABLET BY MOUTH DAILY 09-12 00:00: 00 06-25 00:00 :00 No 40 Delfino Orta TAKE 1 TABLET DAILY. 09-12 00:00: 00 06-25 00:00 :00 No 10 Delfino Orta INHALE 1 TO 2 PUFFS BY MOUTH EVERY 6 HOURS NEEDED. 09-12 00:00: 00 06-25 00:00 :00 No [id number] Delfino Orta INHALE 2 PUFFS TWICE DAILY. RINSE MOUTH AFTER USE. 09-12 00:00: 00 06-25 00:00 :00 No 220 Delfino Orta TAKE 1 TO 2 TABLETS AT BEDTIME 09-12 00:00: 00 06-25 00:00 :00 No 25 Delfinosurinder Orta ALBUTEROL PA HFA 200 INH 09-06 00:00: 00 Yes Delfino Orta TAKE 1 TABLET DAILY. 2023-0 6-22 00:00: 00 06-25 00:00 :00 No 75 Delfino Orta TAKE 1 TO 2 TABLETS AT BEDTIME 08-01 00:00: 00 06-25 00:00 :00 No 25 Delfino Orta 1-2 PUFFS Q 12 HOURS 07-05 00:00: 00 06-25 00:00 :00 No 80 Delfino Orta INHALE 1 TO 2 PUFFS BY MOUTH EVERY 6 HOURS NEEDED. 07-04 00:00: 00 06-25 00:00 :00 No [id number] Delfino Orta TAKE 1 TABLET DAILY. 07-04 00:00: 00 06-25 00:00 :00 No 10 Delfino Orta TAKE 1 TABLET BY MOUTH DAILY 07-04 00:00: 00 06-25 00:00 :00 No 40 Delfino Orta TAKE 1 TABLET AT BEDTIME. 07-04 00:00: 00 06-25 00:00 :00 No 45 Delfino Orta INHALE 2 PUFFS TWICE DAILY. RINSE MOUTH AFTER USE. 07-04 00:00: 00 06-25 00:00 :00 No 220 Delfino Orta TAKE 1 TABLET DAILY. 07-04 00:00: 00 06-25 00:00 :00 No [id number] Delfino Orta TAKE 1 TABLET DAILY. 07-04 00:00: 00 06-25 00:00 :00 No 20 Delfino Orta TAKE 1 TABLET EVERY 8 HOURS WITH FOOD NEEDED. 07-04 00:00: 00 06-25 00:00 :00 No 800 Delfino Orta TAKE 1 TABLET BY MOUTH DAILY 06-27 00:00: 00 06-25 00:00 :00 No 40 Delfino Orta ALBUTEROL PA HFA 200 INH 05-15 00:00: 00 06-25 00:00 :00 No Delfino Schumacher You NITROFUR MON 100MG 05-15 00:00: 00 06-25 00:00 :00 No Delfinosurinder Orta TAKE 1 TABLET DAILY. 04-19 00:00: 00 06-25 00:00 :00 No [id number] Delfino Orta TAKE 1 TABLET DAILY. 04-19 00:00: 00 06-25 00:00 :00 No 20 Delfino Orta AMLODIPINE BESYLATE 10 MG TABS 04-19 00:00: 00 06-25 00:00 :00 No Delfino Orta IBUPROFEN 600 MG TABS 04-19 00:00: 00 06-25 00:00 :00 No Delfino Orta CHLORHEXIDI NE GLUCONATE 0.12 % SOLN 04-11 00:00: 00 06-25 00:00 :00 No Delfino Orta bictegrav-e mtricit-ten ofov ala 50-200-25 mg tablet 04-03 00:00: 00 Yes [id number] 1{tbl} Take 1 tablet by mouth in the morning. [facility] fluconazole 200 mg tablet 04-03 00:00: 00 Yes [id number] 200mg Take 1 tablet by mouth in the morning. [facility] sulfamethox azole-trime thoprim 800-160 mg per tablet 04-03 00:00: 00 Yes [id number] 1{tbl} Take 1 tablet by mouth in the morning. [facility] sulfamethox azole 800 mg-trimetho prim 160 mg tablet 04-03 00:00: 00 06-25 00:00 :00 Eva Orta TAKE 1 TABLET BY MOUTH IN THE MORNING 04-03 00:00: 00 06-25 00:00 :00 No Delfino Orta TAKE 1 TABLET BY MOUTH IN THE MORNING 04-03 00:00: 00 06-25 00:00 :00 Eva Orta TAKE 1 TABLET ONCE DAILY BEFORE MEALS 04-02 00:00: 00 06-25 00:00 :00 No 40 Delfino Orta trazodone 50 mg tablet 04-02 00:00: 00 06-25 00:00 :00 Eva Orta INHALE 1 TO 2 PUFFS BY MOUTH EVERY 6 HOURS NEEDED. - 00:00: 00 06-25 00:00 :00 No [id number] Delfino Orta atorvastati n 40 mg tablet -17 00:00: 00 06-25 00:00 :00 No Delfino Orta amlodipine 10 mg tablet -16 00:00: 00 06-25 00:00 :00 No Delfino Orta USE 1 SPRAY IN EACH NOSTRIL ONCE DAILY. 03-28 00:00: 00 06-25 00:00 :00 No 50 Delfino Orta TAKE 1 TABLET DAILY. 03-28 00:00: 00 06-25 00:00 :00 No 10 Delfino Orta TAKE 1 TABLET DAILY. 03-28 00:00: 00 06-25 00:00 :00 No 75 Delfino Orta fluticasone propionate 50 mcg/actuati on nasal spray,suspe nsion 03-28 00:00: 00 06-25 00:00 :00 No Delfino Orta FLUTICASONE 50MCG RX SPR 03-08 00:00: 00 06-25 00:00 :00 No Delfino Orta MELOXICAM 7.5MG 03-08 00:00: 00 06-25 00:00 :00 Eva Orta CHLORHEX GLU 0.12% ESTRELLA 03-08 00:00: 00 06-25 00:00 :00 No Delfino Orta INHALE 1 TO 2 PUFFS BY MOUTH EVERY 6 HOURS NEEDED. -24 00:00: 00 06-25 00:00 :00 No [id number] Delfino Orta APPLY OINTMENT 3 TO 4 TIMES PER DAY TO AFFECTED AREA FOR 14 DAYS -18 00:00: 00 No 20 APPLY OINTMENT 3 TO 4 TIMES PER DAY TO AFFECTED AREA FOR 14 DAYS -18 00:00: 00 06-25 00:00 :00 No 20 Delfino Orta TAKE 1 CAPSULE BY MOUTH EVERY 8 HOURS NEEDED FOR COUGH 0 - 00:00: 00 No 100 TAKE 1 CAPSULE BY MOUTH EVERY 8 HOURS NEEDED FOR COUGH 0 - 00:00: 00 06-25 00:00 :00 No Delfino Orta TAKE 1 TABLET DAILY. 2021-02 00:00: 00 No TAKE 1 TABLET AT BEDTIME. 2021-02 00:00: 00 No APPLY TO AFFECTED AREA ON SKIN TWICE A DAY FOR 5 DAYS 2021-02 00:00: 00 No FLOVENT HFA 220MCG/A INH 2021-02 00:00: 00 No ATORVASTATI N CALCIUM 40 MG TABS 2021-02 00:00: 00 No CYCLOBENZAP RINE HYDROCHLORI DE 5 MG TABS 2021-02 00:00: 00 No TIZANIDINE HYDROCHLORI DE 4MG TAB 2021-02 00:00: 00 No LOSARTAN POTASSIUM/H YDROCHLOROT HIAZ YASMIN 100-12.5 MG TABS 2021-02 00:00: 00 No FLUCONAZOLE 150MG TAB 2021-02 00:00: 00 No AMOXICILLIN 875 MG TABS 2021-02 00:00: 00 No TRAZODONE HYDROCHLORI DE 50 MG TABS 2021-02 00:00: 00 No VANCOMYCIN HYDROCHLORI DE 250 MG CAPS 2021-02 00:00: 00 No Dose Unknown 2021-02 00:00: 00 No Dose Unknown 2021-02 00:00: 00 No Dose Unknown 2021-02 00:00: 00 No Dose Unknown 2021-02 00:00: 00 No TRAMADOL HCL 50 MG TABS 2021-02 00:00: 00 No IBUPROFEN 400MG TAB 2021-02 00:00: 00 No TAKE 1 TABLET BY MOUTH TWICE A DAY FOR 7 DAYS 2021-02 00:00: 00 No TAKE 1 TABLET 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 2021-02 00:00: 00 06-25 00:00 :00 No Delfino Orta TAKE 1 TABLET AT BEDTIME. 2021-02 00:00: 00 06-25 00:00 :00 Eva Orta APPLY TO AFFECTED AREA ON SKIN TWICE A DAY FOR 5 DAYS 2021-02 00:00: 00 06-25 00:00 :00 Eva Orta FLOVENT HFA 220MCG/A INH 2021-02 00:00: 00 06-25 00:00 :00 Eva Orta ATORVASTATI N CALCIUM 40 MG TABS 2021-02 00:00: 00 06-25 00:00 :00 Eva Orta CYCLOBENZAP RINE HYDROCHLORI DE 5 MG TABS 2021-02 00:00: 00 06-25 00:00 :00 Eva Orta TIZANIDINE HYDROCHLORI DE 4MG TAB 2021-02 00:00: 00 06-25 00:00 :00 Eva Orta LOSARTAN POTASSIUM/H YDROCHLOROT HIAZ YASMIN 100-12.5 MG TABS 2021-02 00:00: 00 06-25 00:00 :00 Eva Orta FLUCONAZOLE 150MG TAB 2021-02 00:00: 00 06-25 00:00 :00 Eva Orta AMOXICILLIN 875 MG TABS 2021-02-14 00:00: 00 06-25 00:00 :00 No Delfino F You VANCOMYCIN HYDROCHLORI DE 250 MG CAPS 2021-02 00:00: 00 06-25 00:00 :00 No Delfino F You Dose Unknown 2021-02 2 00:00: 00 06-25 00:00 :00 No Delfino F You Dose Unknown 2021-02 00:00: 00 06-25 00:00 :00 No Delfino F You Dose Unknown 2021-02 00:00: 00 06-25 00:00 :00 No Delfino F You Dose Unknown 2021-02 00:00: 00 06-25 00:00 :00 No Delfino F You TRAMADOL HCL 50 MG TABS 2021-02 00:00: 00 06-25 00:00 :00 No Delfino Orta IBUPROFEN 400MG TAB 2021-02 00:00: 00 06-25 00:00 :00 No Delfino Orta TAKE 1 TABLET BY MOUTH TWICE A DAY FOR 7 DAYS 2021-02 00:00: 00 06-25 00:00 :00 No Delfino F You TAKE 1 TABLET 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 2021-02 00:00: 00 06-25 00:00 :00 No Delfino F You Dose Unknown 2021-02 00:00: 00 06-25 00:00 :00 No Delfino F You Dose Unknown 2021-02 00:00: 00 06-25 00:00 :00 No Delfino F You Dose Unknown 2021-02 00:00: 00 06-25 00:00 :00 No Delfino F You MIRTAZAPINE 15MG TAB 2021-02 2- 00:00: 00 06-25 00:00 :00 No Delfino F You Dose Unknown 2021-02 2- 00:00: 00 06-25 00:00 :00 No Delfino F You Dose Unknown 2021-02 00:00: 00 06-25 00:00 :00 No Delfino Endy Orta Dose Unknown 2021-02 2 00:00: 00 06-25 00:00 :00 No Delfino Orta Dose Unknown 2021-02 2 00:00: 00 06-25 00:00 :00 No Delfino Orta NYSTATIN [id number] ROOPA 2021-02 2 00:00: 00 06-25 00:00 :00 No Delfino Orta CITALOPRAM HYDROBROMID E 20MG TAB 2021-02 2 00:00: 00 06-25 00:00 :00 No Delfino Orta Dose Unknown 2021-02 00:00: 00 06-25 00:00 :00 No Delfino Orta TAKE 1 TABLET AT BEDTIME NEEDED. 2021-02 2- 00:00: 00 No 50unit FLUTICASONE PROPIONATE 50 MCG/ACT SUSP 2021-02 2 00:00: 00 No 50 TAKE 1 TABLET BID NEEDED 2021-02 2 00:00: 00 No 600 ALBUTEROL SULFATE HFA 108 (90 Base) MCG/ACT AERS 2021-02 2 00:00: 00 No TAKE 1 TABLET AT BEDTIME NEEDED. 2021-02 2 00:00: 00 06-25 00:00 :00 No 50unit Delfino Endy You FLUTICASONE PROPIONATE 50 MCG/ACT SUSP 2021-02 2 00:00: 00 06-25 00:00 :00 No Delfino Orta TAKE 1 TABLET BID NEEDED 2021-02 2 00:00: 00 06-25 00:00 :00 No 600 Delfino Endy You ALBUTEROL SULFATE HFA 108 (90 Base) MCG/ACT AERS 2021-02 2 00:00: 00 06-25 00:00 :00 No Delfino Orta TAKE 1 TABLET DAILY. 11-06 00:00: 00 06-25 00:00 :00 No 10 Delfino Orta ALLOPURINOL 100 MG TABS 11-06 00:00: 00 2024- 05-15 00:00 :00 No Delfino Orta AMLODIPINE BESYLATE 10MG TAB 0 8-18 00:00: 00 Yes Delfino Orta AMLODIPINE BESYLATE 10MG TAB 0 8-18 00:00: 00 No AMLODIPINE BESYLATE 10MG TAB 0 8-18 00:00: 00 No AMLODIPINE BESYLATE 10MG TAB 2021-0 8-18 00:00: 00 No TAKE BY MOUTH 6 MILLILITERS 4 TIMES A DAY FOR 14 DAYS 2021-0 7-20 00:00: 00 Yes Delfino Orta FLUTICASONE PROPIONATE 50MCG RX SPR 0 -20 00:00: 00 Yes Delfino Orta TAKE BY MOUTH 6 MILLILITERS 4 TIMES A DAY FOR 14 DAYS 2021-0 7-20 00:00: 00 No Dose Unknown 0 7-20 00:00: 00 No TAKE BY MOUTH 6 MILLILITERS 4 TIMES A DAY FOR 14 DAYS 2021-0 7-20 00:00: 00 No FLUTICASONE PROPIONATE 50MCG RX SPR 0 7-20 00:00: 00 No TAKE BY MOUTH 6 MILLILITERS 4 TIMES A DAY FOR 14 DAYS 2021-0 7-20 00:00: 00 No Dose Unknown 0 -20 00:00: 00 No losartan 100 mg-hydrochl orothiazide 12.5 mg tablet 08-07 00:00: 00 Yes 1mg Delfino Orta atorvastati n 40 mg tablet 08-07 00:00: 00 Yes 1mg Delfino Orta amlodipine 10 mg tablet 08-07 00:00: 00 Yes 1mg Delfino Orta allopurinol 100 mg tablet 08-07 00:00: 00 Yes 1mg Delfino Orta cyclobenzap rine 5 mg tablet 08-07 00:00: 00 Yes 1mg Delfino Orta ibuprofen 400 mg tablet 08-07 00:00: 00 Yes 1mg Delfino Orta fluticasone propionate 50 mcg/actuati on nasal spray,suspe nsion 08-07 00:00: 00 Yes 1mcg/ac tuation Delfino Orta &lt 0 08-07 00:00: 00 Yes Delfino Orta &lt 0 08-07 00:00: 00 Yes Delfino Orta &lt 0 08-07 00:00: 00 Yes Delfino Orta &lt 0 08-07 00:00: 00 Yes Delfino Orta losartan 100 mg-hydrochl orothiazide 12.5 mg tablet 0 08-07 00:00: 00 No 1mg atorvastati n 40 mg tablet 0 08-07 00:00: 00 No 1mg amlodipine 10 mg tablet 0 08-07 00:00: 00 No 1mg allopurinol 100 mg tablet 0 08-07 00:00: 00 No 1mg cyclobenzap rine 5 mg tablet 08-07 00:00: 00 No 1mg ibuprofen 400 mg tablet 08-07 00:00: 00 No 1mg fluticasone propionate 50 mcg/actuati on nasal spray,suspe nsion 0 08-07 00:00: 00 No 1mcg/ac tuation &lt 0 08-07 00:00: 00 No &lt 2-0 08-07 00:00: 00 No &lt 2021-0 08-07 00:00: 00 No &lt 2-0 08-07 00:00: 00 No TAKE 1 TABLET DAILY. 0 08-07 00:00: 00 No losartan 100 mg-hydrochl orothiazide 12.5 mg tablet 08-07 00:00: 00 No 1mg amlodipine 10 mg tablet 0 08-07 00:00: 00 No 1mg Dose Unknown 0 08-07 00:00: 00 No Dose Unknown 0 08-07 00:00: 00 No Dose Unknown 0 08-07 00:00: 00 No fluticasone propionate 50 mcg/actuati on nasal spray,suspe nsion 0 08-07 00:00: 00 No 1mcg/ac tuation &lt 0 08-07 00:00: 00 No &lt 2-0 08-07 00:00: 00 No &lt 2-0 08-07 00:00: 00 No &lt 2-0 08-07 00:00: 00 No losartan 100 mg-hydrochl orothiazide 12.5 mg tablet 0 08-07 00:00: 00 No 1mg atorvastati n 40 mg tablet 0 08-07 00:00: 00 No 1mg amlodipine 10 mg tablet 0 08-07 00:00: 00 No 1mg allopurinol 100 mg tablet 0 08-07 00:00: 00 No 1mg cyclobenzap rine 5 mg tablet 0 08-07 00:00: 00 No 1mg ibuprofen 400 mg tablet 0 08-07 00:00: 00 No 1mg fluticasone propionate 50 mcg/actuati on nasal spray,suspe nsion 0 08-07 00:00: 00 No 1mcg/ac tuation &lt 0 08-07 00:00: 00 No &lt 2-0 08-07 00:00: 00 No &lt 2021-0 08-07 00:00: 00 No &lt 2021-0 08-07 00:00: 00 No Dose Unknown 0 08-07 00:00: 00 06-25 00:00 :00 No 400 Delfino Endy You &lt 2-0 08-04 00:00: 00 Yes Delfino F You &lt 2022-0 08-04 00:00: 00 No &lt 2022-0 08-04 00:00: 00 No &lt 2022-0 08-04 00:00: 00 No mirtazapine 45 mg tablet 0 08-02 00:00: 00 Yes 1mg Delfino Endy You mirtazapine 45 mg tablet 0 08-02 00:00: 00 No 1mg TAKE 1 TABLET AT BEDTIME. 0 08-02 00:00: 00 No mirtazapine 45 mg tablet 0 08-02 00:00: 00 No 1mg &lt 2022-0 07-28 00:00: 00 Yes Delfino F You &lt 2022-0 07-28 00:00: 00 Yes Delfino F You &lt 2022-0 07-28 00:00: 00 No &lt 2022-0 6 00:00: 00 No &lt 2022-0 07-28 00:00: 00 No &lt 2022-0 6-17 00:00: 00 No &lt 2-0 6-17 00:00: 00 No &lt 2-0 6-17 00:00: 00 No imiquimod 3.75 % topical cream in a pump 07-03 00:00: 00 Yes 1% Delfino Orta fluconazole 150 mg tablet 07-03 00:00: 00 Yes 1mg Delfino Orta fluticasone propionate 50 mcg/actuati on nasal spray,suspe nsion 07-03 00:00: 00 Yes 1mcg/ac tuation Delfino Orta imiquimod 3.75 % topical cream in a pump 07-03 00:00: 00 No 1% fluconazole 150 mg tablet 07-03 00:00: 00 No 1mg fluticasone propionate 50 mcg/actuati on nasal spray,suspe nsion 07-03 00:00: 00 No 1mcg/ac tuation Dose Unknown 07-03 00:00: 00 No fluconazole 150 mg tablet 07-03 00:00: 00 No 1mg fluticasone propionate 50 mcg/actuati on nasal spray,suspe nsion 07-03 00:00: 00 No 1mcg/ac tuation imiquimod 3.75 % topical cream in a pump 07-03 00:00: 00 No 1% fluconazole 150 mg tablet 07-03 00:00: 00 No 1mg fluticasone propionate 50 mcg/actuati on nasal spray,suspe nsion 07-03 00:00: 00 No 1mcg/ac tuation FLOVENT HFA 220MCG/A INH 07-03 00:00: 00 06-25 00:00 :00 No [id number] Delfino Orta sulfamethox azole-trime thoprim 800-160 mg per tablet 06-15 00:00: 00 04-03 00:00 :00 No [id number] 1{tbl} Take 1 tablet by mouth daily. [facility] ALPRAZOLAM ORAL 06-14 17:22: 53 Yes Take by mouth. [facility] efavirenz 600 mg tablet 06-14 00:00: 00 Yes [id number] 600mg Take 1 tablet by mouth daily. [facility] metoprolol tartrate 25 mg tablet 06-14 00:00: 00 Yes [id number] 12.5mg Take 0.5 tablets by mouth 2 (two) times daily. [facility] nystatin 100,000 unit/mL suspension 06-14 00:00: 00 Yes [id number] Take 5 mL by mouth 4 (four) times daily. [facility] amoxicillin -clavulanat e 875-125 mg per tablet 06-14 00:00: 00 04-03 00:00 :00 No [id number] 1{tbl} Take 1 tablet by mouth every 12 (twelve) hours. [facility] lamiVUDine 150 mg tablet 06-14 00:00: 00 04-03 00:00 :00 No [id number] 150mg Take 1 tablet by mouth 2 (two) times daily. [facility] ProAir HFA 90 mcg/actuati on aerosol inhaler 05-22 00:00: 00 Yes 2mcg/ac tuation Delfino Orta atorvastati n 40 mg tablet 05-22 00:00: 00 Yes 1mg Delfino Orta amlodipine 10 mg tablet 05-22 00:00: 00 Yes 1mg Delfino Orta losartan 100 mg tablet 05-22 00:00: 00 Yes 1mg Delfino Orta Epzicom 600 mg-300 mg tablet 05-22 00:00: 00 Yes 1mg Delfino Orta citalopram 20 mg tablet 05-22 00:00: 00 Yes 1mg Delfino Orta loratadine 10 mg tablet 05-22 00:00: 00 Yes 1mg Delfino Orta allopurinol 100 mg tablet 05-22 00:00: 00 Yes 1mg Delfino Orta cyclobenzap rine 5 mg tablet 05-22 00:00: 00 Yes 1mg Delfino Orta mirtazapine 45 mg tablet 4- 00:00: 00 Yes 1mg Delfino Orta fluticasone propionate 50 mcg/actuati on nasal spray,suspe nsion 4- 00:00: 00 Yes 1mcg/ac tuation Delfino Orta ProAir HFA 90 mcg/actuati on aerosol inhaler 4- 00:00: 00 No 2mcg/ac tuation atorvastati n 40 mg tablet 4- 00:00: 00 No 1mg amlodipine 10 mg tablet 4- 00:00: 00 No 1mg losartan 100 mg tablet 4- 00:00: 00 No 1mg Epzicom 600 mg-300 mg tablet 4- 00:00: 00 No 1mg citalopram 20 mg tablet 4- 00:00: 00 No 1mg loratadine 10 mg tablet 4- 00:00: 00 No 1mg allopurinol 100 mg tablet 4- 00:00: 00 No 1mg cyclobenzap rine 5 mg tablet 4- 00:00: 00 No 1mg mirtazapine 45 mg tablet 4- 00:00: 00 No 1mg fluticasone propionate 50 mcg/actuati on nasal spray,suspe nsion - 00:00: 00 No 1mcg/ac tuation Dose Unknown 4- 00:00: 00 No atorvastati n 40 mg tablet 4- 00:00: 00 No 1mg amlodipine 10 mg tablet 4- 00:00: 00 No 1mg allopurinol 100 mg tablet 4- 00:00: 00 No 1mg mirtazapine 45 mg tablet 4- 00:00: 00 No 1mg Dose Unknown 4- 00:00: 00 No Dose Unknown 0 4- 00:00: 00 No Dose Unknown 0 4- 00:00: 00 No Dose Unknown 4- 00:00: 00 No Dose Unknown 05-22 00:00: 00 No fluticasone propionate 50 mcg/actuati on nasal spray,suspe nsion 05-22 00:00: 00 No 1mcg/ac tuation ProAir HFA 90 mcg/actuati on aerosol inhaler - 00:00: 00 No 2mcg/ac tuation atorvastati n 40 mg tablet 05-22 00:00: 00 No 1mg amlodipine 10 mg tablet 05-22 00:00: 00 No 1mg losartan 100 mg tablet 05-22 00:00: 00 No 1mg Epzicom 600 mg-300 mg tablet 05-22 00:00: 00 No 1mg citalopram 20 mg tablet 05-22 00:00: 00 No 1mg loratadine 10 mg tablet 05-22 00:00: 00 No 1mg allopurinol 100 mg tablet 05-22 00:00: 00 No 1mg cyclobenzap rine 5 mg tablet 05-22 00:00: 00 No 1mg mirtazapine 45 mg tablet 05-22 00:00: 00 No 1mg fluticasone propionate 50 mcg/actuati on nasal spray,suspe nsion 05-22 00:00: 00 No 1mcg/ac tuation TRIAMCINOLO NE ACETONIDE 0.1% CRE 05-12 00:00: 00 06-25 00:00 :00 No 100 Delfino Orta Dose Unknown 05-03 00:00: 00 Yes Delfino Orta Dose Unknown 05-03 00:00: 00 Yes Delfino Orta Dose Unknown 05-03 00:00: 00 Yes Delfino Orta Dose Unknown 05-03 00:00: 00 No Dose Unknown 05-03 00:00: 00 No Dose Unknown 05-03 00:00: 00 No Dose Unknown 05-03 00:00: 00 No Dose Unknown 05-03 00:00: 00 No Dose Unknown 2022-0 3-23 00:00: 00 No Dose Unknown 2022-0 3-23 00:00: 00 No Dose Unknown 2022-0 3-23 00:00: 00 No Dose Unknown 2022-0 3-23 00:00: 00 No FLOVENT HFA 220MCG/A INH 2022-0 3-23 00:00: 00 2024- 05-15 00:00 :00 No [id number] Delfino Orta Dose Unknown 2022-0 3-21 00:00: 00 Yes Delfino Orta Dose Unknown 2022-0 3-21 00:00: 00 No Dose Unknown 2022-0 3-21 00:00: 00 No Dose Unknown 2022-0 3-21 00:00: 00 No Dose Unknown 2022-0 3-20 00:00: 00 Yes Delfino Orta Dose Unknown 2022-0 3-20 00:00: 00 No Dose Unknown 2022-0 3-20 00:00: 00 No Dose Unknown 2022-0 3-20 00:00: 00 No Dose Unknown 2022-0 3-16 00:00: 00 Yes Delfino Orta Dose Unknown 2022-0 3-16 00:00: 00 No Dose Unknown 2022-0 3-16 00:00: 00 No Dose Unknown 2022-0 3-16 00:00: 00 No Dose Unknown 2022-0 3-15 00:00: 00 Yes Delfino Orta Dose Unknown 2022-0 3-15 00:00: 00 Yes Delfino Orta Dose Unknown 2022-0 3-15 00:00: 00 No Dose Unknown 2022-0 3-15 00:00: 00 No Dose Unknown 2022-0 3-15 00:00: 00 No Dose Unknown 2022-0 3-15 00:00: 00 No Dose Unknown 2022-0 3-15 00:00: 00 No Dose Unknown 2022-0 3-15 00:00: 00 No Dose Unknown 2022-0 1-26 00:00: 00 Yes Delfino Orta fluticasone propionate 50 mcg/actuati on nasal spray,suspe nsion 2022-0 1-26 00:00: 00 Yes 1mcg/ac tuation Delfino Orta Dose Unknown 2022-0 1-26 00:00: 00 No fluticasone propionate 50 mcg/actuati on nasal spray,suspe nsion 2022-0 1-26 00:00: 00 No 1mcg/ac tuation Dose Unknown 03-08 00:00: 00 No fluticasone propionate 50 mcg/actuati on nasal spray,suspe nsion 03-08 00:00: 00 No 1mcg/ac tuation Dose Unknown 03-08 00:00: 00 No fluticasone propionate 50 mcg/actuati on nasal spray,suspe nsion 03-08 00:00: 00 No 1mcg/ac tuation sulfamethox azole 800 mg-trimetho prim 160 mg tablet 2020-02 00:00: 00 Yes 1mg Delfino Orta sulfamethox azole 800 mg-trimetho prim 160 mg tablet 2020-02 00:00: 00 No 1mg sulfamethox azole 800 mg-trimetho prim 160 mg tablet 2020-02 00:00: 00 No 1mg sulfamethox azole 800 mg-trimetho prim 160 mg tablet 2020-02 00:00: 00 No 1mg Dose Unknown 2020-02 00:00: 00 Yes Delfino Endy Orta Dose Unknown 2020-02 2 00:00: 00 No Dose Unknown 2020-02 00:00: 00 No Dose Unknown 2020-02 00:00: 00 No Dose Unknown 2020-02 2 00:00: 00 Yes Delfino Endy Orta Dose Unknown 2020-02 2 00:00: 00 Yes Delfino Endy You ibuprofen 600 mg tablet 2020-02 2 00:00: 00 Yes 1mg Delfino Endy You tizanidine 4 mg tablet 2020-02 2 00:00: 00 Yes 1mg Delfino Orta fluticasone propionate 50 mcg/actuati on nasal spray,suspe nsion 2020-02 2 00:00: 00 Yes 1mcg/ac tuation Delfino Endy Orta Dose Unknown 2020-02 2 00:00: 00 No Dose Unknown 2020-02 2 00:00: 00 No ibuprofen 600 mg tablet 2020-02 2- 00:00: 00 No 1mg tizanidine 4 mg tablet 2020-02 00:00: 00 No 1mg fluticasone propionate 50 mcg/actuati on nasal spray,suspe nsion 2020-02 00:00: 00 No 1mcg/ac tuation Dose Unknown 2020-02 00:00: 00 No Dose Unknown 2020-02 00:00: 00 No tizanidine 4 mg tablet 2020-02 00:00: 00 No 1mg Dose Unknown 2020-02 00:00: 00 No fluticasone propionate 50 mcg/actuati on nasal spray,suspe nsion 2020-02 00:00: 00 No 1mcg/ac tuation Dose Unknown 2020-02 00:00: 00 No Dose Unknown 2020-02 00:00: 00 No ibuprofen 600 mg tablet 2020-02 00:00: 00 No 1mg tizanidine 4 mg tablet 2020-02 00:00: 00 No 1mg fluticasone propionate 50 mcg/actuati on nasal spray,suspe nsion 2020-02 00:00: 00 No 1mcg/ac tuation Flovent HFA 220 mcg/actuati on aerosol inhaler 2020-02 00:00: 00 Yes 2mcg/ac tuation Delfino Orta ProAir HFA 90 mcg/actuati on aerosol inhaler 2020-02 00:00: 00 Yes 1mcg/ac tuation Delfino Endy You imiquimod 3.75 % topical cream in a pump 2020-02 00:00: 00 Yes 1% Delfino Orta Dose Unknown 2020-02 00:00: 00 Yes Delfino F You Dose Unknown 2020-02 00:00: 00 Yes Delfino Endy You atorvastati n 40 mg tablet 2020-02 00:00: 00 Yes 1mg Delfino Endy Orta Dose Unknown 2020-02 00:00: 00 Yes Delfino F You Dose Unknown 2020-02 00:00: 00 Yes Delfino Endy You loratadine 10 mg tablet 2020-02 00:00: 00 Yes 1mg Delfino Orta Dose Unknown 2020-02 00:00: 00 Yes Delfino Orta cyclobenzap rine 5 mg tablet 2020-02 00:00: 00 Yes 12mg Delfino Orta mirtazapine 45 mg tablet 2020-02 00:00: 00 Yes 1mg Delfino Orta ibuprofen 800 mg tablet 2020-02 00:00: 00 Yes 1mg Delfino Orta ferrous sulfate 325 mg (65 mg iron) tablet,ruchi yed release 2020-02 00:00: 00 Yes 1(65 mg iron) Delfino Orta fluticasone propionate 50 mcg/actuati on nasal spray,suspe nsion 2020-02 00:00: 00 Yes 1mcg/ac tuation Delfino Orta Flovent HFA 220 mcg/actuati on aerosol inhaler 2020-02 00:00: 00 No 2mcg/ac tuation ProAir HFA 90 mcg/actuati on aerosol inhaler 2020-02 00:00: 00 No 1mcg/ac tuation imiquimod 3.75 % topical cream in a pump 2020-02 00:00: 00 No 1% Dose Unknown 2020-02 00:00: 00 No Dose Unknown 2020-02 00:00: 00 No atorvastati n 40 mg tablet 2020-02 00:00: 00 No 1mg Dose Unknown 2020-02 00:00: 00 No Dose Unknown 2020-02 00:00: 00 No loratadine 10 mg tablet 2020-02 00:00: 00 No 1mg Dose Unknown 2020-02 00:00: 00 No cyclobenzap rine 5 mg tablet 2020-02 00:00: 00 No 12mg mirtazapine 45 mg tablet 2020-02 00:00: 00 No 1mg ibuprofen 800 mg tablet 2020-02 00:00: 00 No 1mg ferrous sulfate 325 mg (65 mg iron) tablet,ruchi yed release 2020-02 00:00: 00 No 1(65 mg iron) fluticasone propionate 50 mcg/actuati on nasal spray,suspe nsion 2020-02 00:00: 00 No 1mcg/ac tuation Flovent HFA 220 mcg/actuati on aerosol inhaler 2020-02 00:00: 00 No 2mcg/ac tuation Dose Unknown 2020-02 00:00: 00 No imiquimod 3.75 % topical cream in a pump 2020-02 00:00: 00 No 1% Dose Unknown 2020-02 00:00: 00 No Dose Unknown 2020-02 00:00: 00 No Dose Unknown 2020-02 00:00: 00 No Dose Unknown 2020-02 00:00: 00 No Dose Unknown 2020-02 00:00: 00 No cyclobenzap rine 5 mg tablet 2020-02 00:00: 00 No 12mg mirtazapine 45 mg tablet 2020-02 00:00: 00 No 1mg Dose Unknown 2020-02 00:00: 00 No Dose Unknown 2020-02 00:00: 00 No Dose Unknown 2020-02 00:00: 00 No Dose Unknown 2020-02 00:00: 00 No fluticasone propionate 50 mcg/actuati on nasal spray,suspe nsion 2020-02 00:00: 00 No 1mcg/ac tuation Flovent HFA 220 mcg/actuati on aerosol inhaler 2020-02 00:00: 00 No 2mcg/ac tuation ProAir HFA 90 mcg/actuati on aerosol inhaler 2020-02 00:00: 00 No 1mcg/ac tuation imiquimod 3.75 % topical cream in a pump 2020-02 00:00: 00 No 1% Dose Unknown 2020-02 00:00: 00 No Dose Unknown 2020-02 00:00: 00 No atorvastati n 40 mg tablet 2020-02 00:00: 00 No 1mg Dose Unknown 2020-02 00:00: 00 No Dose Unknown 2020-02 00:00: 00 No loratadine 10 mg tablet 2020-02 00:00: 00 No 1mg Dose Unknown 2020-02 00:00: 00 No cyclobenzap rine 5 mg tablet 2020-02 00:00: 00 No 12mg mirtazapine 45 mg tablet 2020-02 00:00: 00 No 1mg ibuprofen 800 mg tablet 2020-02 00:00: 00 No 1mg ferrous sulfate 325 mg (65 mg iron) tablet,ruchi yed release 2020-02 00:00: 00 No 1(65 mg iron) fluticasone propionate 50 mcg/actuati on nasal spray,suspe nsion 2020-02 00:00: 00 No 1mcg/ac tuation imiquimod 3.75 % topical cream in a pump 10-31 00:00: 00 Yes 1% Delfino Orta imiquimod 3.75 % topical cream in a pump 10-31 00:00: 00 No 1% imiquimod 3.75 % topical cream in a pump 10-31 00:00: 00 No 1% imiquimod 3.75 % topical cream in a pump 10-31 00:00: 00 No 1% cyclobenzap rine 5 mg tablet 10-12 00:00: 00 Yes 12mg Delfino Orta ibuprofen 800 mg tablet 10-12 00:00: 00 Yes 1mg Delfino Orta cyclobenzap rine 5 mg tablet 10-12 00:00: 00 No 12mg ibuprofen 800 mg tablet 10-12 00:00: 00 No 1mg cyclobenzap rine 5 mg tablet 10-12 00:00: 00 No 12mg ibuprofen 800 mg tablet 10-12 00:00: 00 No 1mg cyclobenzap rine 5 mg tablet 10-12 00:00: 00 No 12mg ibuprofen 800 mg tablet 10-12 00:00: 00 No 1mg losartan 100 mg tablet 09-30 00:00: 00 Yes [id number] 100mg Take 1 tablet by mouth daily. [facility] Flovent HFA 220 mcg/actuati on aerosol inhaler 09-17 00:00: 00 Yes 2mcg/ac tuation Delfino Orta ProAir HFA 90 mcg/actuati on aerosol inhaler 09-17 00:00: 00 Yes 1mcg/ac tuation Delfino Orta losartan 100 mg tablet 09-17 00:00: 00 Yes 1mg Delfino Orta amlodipine 10 mg tablet 09-17 00:00: 00 Yes 1mg Delfino Orta loratadine 10 mg tablet 09-17 00:00: 00 Yes 1mg Delfino Otra allopurinol 100 mg tablet 09-17 00:00: 00 Yes 1mg Delfino Orta atorvastati n 40 mg tablet 09-17 00:00: 00 Yes 1mg Delfino Orta citalopram 20 mg tablet 09-17 00:00: 00 Yes 1mg Delfino Orta Epzicom 600 mg-300 mg tablet 09-17 00:00: 00 Yes 1mg Delfino Orta cyclobenzap rine 5 mg tablet 09-17 00:00: 00 Yes 12mg Delfino Orta mirtazapine 45 mg tablet 09-17 00:00: 00 Yes 1mg Delfino Orta ferrous sulfate 325 mg (65 mg iron) tablet,ruchi yed release 09-17 00:00: 00 Yes 1(65 mg iron) Delfino Orta fluticasone propionate 50 mcg/actuati on nasal spray,suspe nsion 09-17 00:00: 00 Yes 1mcg/ac tuation Delfino Orta Flovent HFA 220 mcg/actuati on aerosol inhaler 09-17 00:00: 00 No 2mcg/ac tuation ProAir HFA 90 mcg/actuati on aerosol inhaler 09-17 00:00: 00 No 1mcg/ac tuation losartan 100 mg tablet 09-17 00:00: 00 No 1mg amlodipine 10 mg tablet 09-17 00:00: 00 No 1mg loratadine 10 mg tablet 09-17 00:00: 00 No 1mg allopurinol 100 mg tablet 09-17 00:00: 00 No 1mg atorvastati n 40 mg tablet 09-17 00:00: 00 No 1mg citalopram 20 mg tablet 09-17 00:00: 00 No 1mg Epzicom 600 mg-300 mg tablet 09-17 00:00: 00 No 1mg cyclobenzap rine 5 mg tablet 09-17 00:00: 00 No 12mg mirtazapine 45 mg tablet 09-17 00:00: 00 No 1mg ferrous sulfate 325 mg (65 mg iron) tablet,ruchi yed release 09-17 00:00: 00 No 1(65 mg iron) fluticasone propionate 50 mcg/actuati on nasal spray,suspe nsion 09-17 00:00: 00 No 1mcg/ac tuation Flovent HFA 220 mcg/actuati on aerosol inhaler 09-17 00:00: 00 No 2mcg/ac tuation Dose Unknown 09-17 00:00: 00 No amlodipine 10 mg tablet 09-17 00:00: 00 No 1mg allopurinol 100 mg tablet 09-17 00:00: 00 No 1mg atorvastati n 40 mg tablet 09-17 00:00: 00 No 1mg citalopram 20 mg tablet 09-17 00:00: 00 No 1mg Epzicom 600 mg-300 mg tablet 09-17 00:00: 00 No 1mg mirtazapine 45 mg tablet 09-17 00:00: 00 No 1mg ferrous sulfate 325 mg (65 mg iron) tablet,ruchi yed release 09-17 00:00: 00 No 1(65 mg iron) Dose Unknown 09-17 00:00: 00 No Dose Unknown 09-17 00:00: 00 No Dose Unknown 09-17 00:00: 00 No fluticasone propionate 50 mcg/actuati on nasal spray,suspe nsion 09-17 00:00: 00 No 1mcg/ac tuation Flovent HFA 220 mcg/actuati on aerosol inhaler 09-17 00:00: 00 No 2mcg/ac tuation ProAir HFA 90 mcg/actuati on aerosol inhaler 09-17 00:00: 00 No 1mcg/ac tuation losartan 100 mg tablet 09-17 00:00: 00 No 1mg amlodipine 10 mg tablet 09-17 00:00: 00 No 1mg loratadine 10 mg tablet 09-17 00:00: 00 No 1mg allopurinol 100 mg tablet 09-17 00:00: 00 No 1mg atorvastati n 40 mg tablet 09-17 00:00: 00 No 1mg citalopram 20 mg tablet 09-17 00:00: 00 No 1mg Epzicom 600 mg-300 mg tablet 09-17 00:00: 00 No 1mg cyclobenzap rine 5 mg tablet 09-17 00:00: 00 No 12mg mirtazapine 45 mg tablet 09-17 00:00: 00 No 1mg ferrous sulfate 325 mg (65 mg iron) tablet,ruchi yed release 09-17 00:00: 00 No 1(65 mg iron) fluticasone propionate 50 mcg/actuati on nasal spray,suspe nsion 09-17 00:00: 00 No 1mcg/ac tuation Flovent HFA 220 mcg/actuati on aerosol inhaler 08-25 00:00: 00 Yes 2mcg/ac tuation Delfino Orta ProAir HFA 90 mcg/actuati on aerosol inhaler 08-25 00:00: 00 Yes 1mcg/ac tuation Delfino Orta losartan 100 mg tablet 08-25 00:00: 00 Yes 1mg Delfino Orta amlodipine 10 mg tablet 08-25 00:00: 00 Yes 1mg Delfino Orta Epzicom 600 mg-300 mg tablet 08-25 00:00: 00 Yes 1mg Delfino Orta atorvastati n 40 mg tablet 08-25 00:00: 00 Yes 1mg Delfino Orta citalopram 20 mg tablet 08-25 00:00: 00 Yes 1mg Delfino Orta allopurinol 100 mg tablet 08-25 00:00: 00 Yes 1mg Delfino Orta loratadine 10 mg tablet 08-25 00:00: 00 Yes 1mg Delfino Orta cyclobenzap rine 5 mg tablet 08-25 00:00: 00 Yes 12mg Delfino Orta mirtazapine 45 mg tablet 08-25 00:00: 00 Yes 1mg Delfino Orta ferrous sulfate 325 mg (65 mg iron) tablet,ruchi yed release 08-25 00:00: 00 Yes 1(65 mg iron) Delfino Orta fluticasone propionate 50 mcg/actuati on nasal spray,suspe nsion 08-25 00:00: 00 Yes 1mcg/ac tuation Delfino Orta Flovent HFA 220 mcg/actuati on aerosol inhaler 08-25 00:00: 00 No 2mcg/ac tuation ProAir HFA 90 mcg/actuati on aerosol inhaler 08-25 00:00: 00 No 1mcg/ac tuation losartan 100 mg tablet 08-25 00:00: 00 No 1mg amlodipine 10 mg tablet 08-25 00:00: 00 No 1mg Epzicom 600 mg-300 mg tablet 08-25 00:00: 00 No 1mg atorvastati n 40 mg tablet 08-25 00:00: 00 No 1mg citalopram 20 mg tablet 08-25 00:00: 00 No 1mg allopurinol 100 mg tablet 08-25 00:00: 00 No 1mg loratadine 10 mg tablet 08-25 00:00: 00 No 1mg cyclobenzap rine 5 mg tablet 08-25 00:00: 00 No 12mg mirtazapine 45 mg tablet 08-25 00:00: 00 No 1mg ferrous sulfate 325 mg (65 mg iron) tablet,ruchi yed release 08-25 00:00: 00 No 1(65 mg iron) fluticasone propionate 50 mcg/actuati on nasal spray,suspe nsion 08-25 00:00: 00 No 1mcg/ac tuation Flovent HFA 220 mcg/actuati on aerosol inhaler 08-25 00:00: 00 No 2mcg/ac tuation ProAir HFA 90 mcg/actuati on aerosol inhaler 08-25 00:00: 00 No 1mcg/ac tuation losartan 100 mg tablet 08-25 00:00: 00 No 1mg amlodipine 10 mg tablet 08-25 00:00: 00 No 1mg Epzicom 600 mg-300 mg tablet 08-25 00:00: 00 No 1mg atorvastati n 40 mg tablet 08-25 00:00: 00 No 1mg citalopram 20 mg tablet 08-25 00:00: 00 No 1mg allopurinol 100 mg tablet 08-25 00:00: 00 No 1mg loratadine 10 mg tablet 08-25 00:00: 00 No 1mg cyclobenzap rine 5 mg tablet 08-25 00:00: 00 No 12mg mirtazapine 45 mg tablet 08-25 00:00: 00 No 1mg ferrous sulfate 325 mg (65 mg iron) tablet,ruchi yed release 08-25 00:00: 00 No 1(65 mg iron) fluticasone propionate 50 mcg/actuati on nasal spray,suspe nsion 08-25 00:00: 00 No 1mcg/ac tuation Flovent HFA 220 mcg/actuati on aerosol inhaler 08-25 00:00: 00 No 2mcg/ac tuation ProAir HFA 90 mcg/actuati on aerosol inhaler 08-25 00:00: 00 No 1mcg/ac tuation losartan 100 mg tablet 08-25 00:00: 00 No 1mg amlodipine 10 mg tablet 08-25 00:00: 00 No 1mg Epzicom 600 mg-300 mg tablet 08-25 00:00: 00 No 1mg atorvastati n 40 mg tablet 08-25 00:00: 00 No 1mg citalopram 20 mg tablet 08-25 00:00: 00 No 1mg allopurinol 100 mg tablet 08-25 00:00: 00 No 1mg loratadine 10 mg tablet 08-25 00:00: 00 No 1mg cyclobenzap rine 5 mg tablet 08-25 00:00: 00 No 12mg mirtazapine 45 mg tablet 08-25 00:00: 00 No 1mg ferrous sulfate 325 mg (65 mg iron) tablet,ruchi yed release 08-25 00:00: 00 No 1(65 mg iron) fluticasone propionate 50 mcg/actuati on nasal spray,suspe nsion 08-25 00:00: 00 No 1mcg/ac tuation amLODIPine 10 mg tablet 08-12 00:00: 00 Yes [id number] 10mg Take 1 tablet by mouth daily. [facility] atorvastati n 40 mg tablet 08-12 00:00: 00 Yes [id number] 40mg Take 1 tablet by mouth at bedtime. [facility] fluticasone propionate 50 mcg/actuati on nasal spray 07-20 00:00: 00 Yes [id number] 2{spray } Use 2 Sprays in each nostril daily. [facility] fluticasone propionate (FLOVENT HFA) 220 mcg/actuati on inhaler 07-20 00:00: 00 Yes [id number] 2{puff} Inhale 2 Puffs every 12 (twelve) hours. [facility] albuterol 90 mcg/actuati on inhaler 07-20 00:00: 00 03-20 00:00 :00 No [id number] 2{puff} Inhale 2 Puffs every 4 (four) hours as needed for Wheezing or Shortness of Breath. [facility] ibuprofen 800 mg tablet 07-19 00:00: 00 Yes 1mg Delfino Orta ibuprofen 800 mg tablet 07-19 00:00: 00 No 1mg ibuprofen 800 mg tablet 07-19 00:00: 00 No 1mg ibuprofen 800 mg tablet 07-19 00:00: 00 No 1mg ProAir HFA 90 mcg/actuati on aerosol inhaler 07-12 00:00: 00 Yes 1mcg/ac tuation Delfino Orta Epzicom 600 mg-300 mg tablet 07-12 00:00: 00 Yes 1mg Delfino Orta losartan 100 mg tablet 07-12 00:00: 00 Yes 1mg Delfino Orta amlodipine 10 mg tablet 07-12 00:00: 00 Yes 1mg Delfino Orta cyclobenzap rine 5 mg tablet 07-12 00:00: 00 Yes 12mg Delfino Orta ibuprofen 800 mg tablet 07-12 00:00: 00 Yes 1mg Delfino Orta fluticasone propionate 50 mcg/actuati on nasal spray,suspe nsion 07-12 00:00: 00 Yes 1mcg/ac tuation Delfino Orta ProAir HFA 90 mcg/actuati on aerosol inhaler 07-12 00:00: 00 No 1mcg/ac tuation Epzicom 600 mg-300 mg tablet 07-12 00:00: 00 No 1mg losartan 100 mg tablet 07-12 00:00: 00 No 1mg amlodipine 10 mg tablet 07-12 00:00: 00 No 1mg cyclobenzap rine 5 mg tablet 07-12 00:00: 00 No 12mg ibuprofen 800 mg tablet 07-12 00:00: 00 No 1mg fluticasone propionate 50 mcg/actuati on nasal spray,suspe nsion 07-12 00:00: 00 No 1mcg/ac tuation ProAir HFA 90 mcg/actuati on aerosol inhaler 07-12 00:00: 00 No 1mcg/ac tuation Epzicom 600 mg-300 mg tablet 07-12 00:00: 00 No 1mg losartan 100 mg tablet 07-12 00:00: 00 No 1mg amlodipine 10 mg tablet 07-12 00:00: 00 No 1mg cyclobenzap rine 5 mg tablet 07-12 00:00: 00 No 12mg ibuprofen 800 mg tablet 07-12 00:00: 00 No 1mg fluticasone propionate 50 mcg/actuati on nasal spray,suspe nsion 07-12 00:00: 00 No 1mcg/ac tuation ProAir HFA 90 mcg/actuati on aerosol inhaler 07-12 00:00: 00 No 1mcg/ac tuation Epzicom 600 mg-300 mg tablet 07-12 00:00: 00 No 1mg losartan 100 mg tablet 07-12 00:00: 00 No 1mg amlodipine 10 mg tablet 07-12 00:00: 00 No 1mg cyclobenzap rine 5 mg tablet 07-12 00:00: 00 No 12mg ibuprofen 800 mg tablet 07-12 00:00: 00 No 1mg fluticasone propionate 50 mcg/actuati on nasal spray,suspe nsion 07-12 00:00: 00 No 1mcg/ac tuation ibuprofen 600 mg tablet 07-01 00:00: 00 Yes [id number] 600mg Take 1 tablet by mouth every 6 (six) hours as needed for Pain (scale 4-6). [facility] Flovent HFA 220 mcg/actuati on aerosol inhaler 06-17 00:00: 00 Yes 2mcg/ac tuation Delfino Orta ProAir HFA 90 mcg/actuati on aerosol inhaler 06-17 00:00: 00 Yes 1mcg/ac tuation Delfino Orta atorvastati n 40 mg tablet 06-17 00:00: 00 Yes 1mg Delfino Endy Orta citalopram 20 mg tablet 06-17 00:00: 00 Yes 1mg Delfino Orta allopurinol 100 mg tablet 06-17 00:00: 00 Yes 1mg Delfino Orta losartan 100 mg tablet 06-17 00:00: 00 Yes 1mg Delfino Orta amlodipine 10 mg tablet 06-17 00:00: 00 Yes 1mg Delfino Orta loratadine 10 mg tablet 06-17 00:00: 00 Yes 1mg Delfino Orta mirtazapine 45 mg tablet 06-17 00:00: 00 Yes 1mg Delfino Orta ferrous sulfate 325 mg (65 mg iron) tablet,ruchi yed release 06-17 00:00: 00 Yes 1(65 mg iron) Delfino Orta fluticasone propionate 50 mcg/actuati on nasal spray,suspe nsion 06-17 00:00: 00 Yes 1mcg/ac tuation Delfino Orta Flovent HFA 220 mcg/actuati on aerosol inhaler 06-17 00:00: 00 No 2mcg/ac tuation ProAir HFA 90 mcg/actuati on aerosol inhaler 06-17 00:00: 00 No 1mcg/ac tuation atorvastati n 40 mg tablet 06-17 00:00: 00 No 1mg citalopram 20 mg tablet 06-17 00:00: 00 No 1mg allopurinol 100 mg tablet 06-17 00:00: 00 No 1mg losartan 100 mg tablet 06-17 00:00: 00 No 1mg amlodipine 10 mg tablet 06-17 00:00: 00 No 1mg loratadine 10 mg tablet 06-17 00:00: 00 No 1mg mirtazapine 45 mg tablet 06-17 00:00: 00 No 1mg ferrous sulfate 325 mg (65 mg iron) tablet,ruchi yed release 06-17 00:00: 00 No 1(65 mg iron) fluticasone propionate 50 mcg/actuati on nasal spray,suspe nsion 06-17 00:00: 00 No 1mcg/ac tuation Flovent HFA 220 mcg/actuati on aerosol inhaler 06-17 00:00: 00 No 2mcg/ac tuation ProAir HFA 90 mcg/actuati on aerosol inhaler 06-17 00:00: 00 No 1mcg/ac tuation atorvastati n 40 mg tablet 06-17 00:00: 00 No 1mg citalopram 20 mg tablet 06-17 00:00: 00 No 1mg allopurinol 100 mg tablet 06-17 00:00: 00 No 1mg losartan 100 mg tablet 06-17 00:00: 00 No 1mg amlodipine 10 mg tablet 06-17 00:00: 00 No 1mg loratadine 10 mg tablet 06-17 00:00: 00 No 1mg mirtazapine 45 mg tablet 06-17 00:00: 00 No 1mg ferrous sulfate 325 mg (65 mg iron) tablet,ruchi yed release 06-17 00:00: 00 No 1(65 mg iron) fluticasone propionate 50 mcg/actuati on nasal spray,suspe nsion 06-17 00:00: 00 No 1mcg/ac tuation Flovent HFA 220 mcg/actuati on aerosol inhaler 06-17 00:00: 00 No 2mcg/ac tuation ProAir HFA 90 mcg/actuati on aerosol inhaler 06-17 00:00: 00 No 1mcg/ac tuation atorvastati n 40 mg tablet 06-17 00:00: 00 No 1mg citalopram 20 mg tablet 06-17 00:00: 00 No 1mg allopurinol 100 mg tablet 06-17 00:00: 00 No 1mg losartan 100 mg tablet 06-17 00:00: 00 No 1mg amlodipine 10 mg tablet 06-17 00:00: 00 No 1mg loratadine 10 mg tablet 06-17 00:00: 00 No 1mg mirtazapine 45 mg tablet 06-17 00:00: 00 No 1mg ferrous sulfate 325 mg (65 mg iron) tablet,ruchi yed release 06-17 00:00: 00 No 1(65 mg iron) fluticasone propionate 50 mcg/actuati on nasal spray,suspe nsion 0 5- 00:00: 00 No 1mcg/ac tuation Voltaren 1 % topical gel 0 3-12 00:00: 00 Yes 1% Delfino F You mirtazapine 45 mg tablet 0 3-12 00:00: 00 Yes 1mg Delfino F You Tessalon Perles 100 mg capsule 0 -12 00:00: 00 Yes 12mg Delfino F You Voltaren 1 % topical gel 0 04-22 00:00: 00 No 1% mirtazapine 45 mg tablet 0 04-22 00:00: 00 No 1mg Tessalon Perles 100 mg capsule 0 04-22 00:00: 00 No 12mg Voltaren 1 % topical gel 0 3 00:00: 00 No 1% mirtazapine 45 mg tablet 0 04-22 00:00: 00 No 1mg Tessalon Perles 100 mg capsule 0 04-22 00:00: 00 No 12mg Voltaren 1 % topical gel 0 12 00:00: 00 No 1% mirtazapine 45 mg tablet 0 04-22 00:00: 00 No 1mg Tessalon Perles 100 mg capsule 0 04-22 00:00: 00 No 12mg fluticasone propionate 50 mcg/actuati on nasal spray,suspe nsion - 00:00: 00 Yes 1mcg/ac tuation Delfino F You fluticasone propionate 50 mcg/actuati on nasal spray,suspe nsion 0 - 00:00: 00 No 1mcg/ac tuation fluticasone propionate 50 mcg/actuati on nasal spray,suspe nsion 0 - 00:00: 00 No 1mcg/ac tuation fluticasone propionate 50 mcg/actuati on nasal spray,suspe nsion 0 - 00:00: 00 No 1mcg/ac tuation Flovent HFA 220 mcg/actuati on aerosol inhaler 2019-02 00:00: 00 Yes 2mcg/ac tuation Delfino Orta ProAir HFA 90 mcg/actuati on aerosol inhaler 2019-02 00:00: 00 Yes 1mcg/ac tuation Delfino Orta Voltaren 1 % topical gel 2019-02 00:00: 00 Yes 1% Delfino Orta loratadine 10 mg tablet 2019-02 00:00: 00 Yes 1mg Delfino Orta Epzicom 600 mg-300 mg tablet 2019-02 00:00: 00 Yes 1mg Delfino Orta amlodipine 10 mg tablet 2019-02 00:00: 00 Yes 1mg Delfino Orta losartan 100 mg tablet 2019-02 00:00: 00 Yes 1mg Delfino Orta allopurinol 100 mg tablet 2019-02 00:00: 00 Yes 1mg Delfino Orta citalopram 20 mg tablet 2019-02 00:00: 00 Yes 1mg Delfino Orta atorvastati n 40 mg tablet 2019-02 00:00: 00 Yes 1mg Delfino Orta mirtazapine 45 mg tablet 2019-02 00:00: 00 Yes 1mg Delfino Orta ferrous sulfate 325 mg (65 mg iron) tablet,ruchi yed release 2019-02 00:00: 00 Yes 1(65 mg iron) Delfino Orta Flovent HFA 220 mcg/actuati on aerosol inhaler 2019-02 00:00: 00 No 2mcg/ac tuation ProAir HFA 90 mcg/actuati on aerosol inhaler 2019-02 00:00: 00 No 1mcg/ac tuation Voltaren 1 % topical gel 2019-02 00:00: 00 No 1% loratadine 10 mg tablet 2019-02 00:00: 00 No 1mg Epzicom 600 mg-300 mg tablet 2019-02 00:00: 00 No 1mg amlodipine 10 mg tablet 2019-02 00:00: 00 No 1mg losartan 100 mg tablet 2019-02 00:00: 00 No 1mg allopurinol 100 mg tablet 2019-02 00:00: 00 No 1mg citalopram 20 mg tablet 2019-02 00:00: 00 No 1mg atorvastati n 40 mg tablet 2019-02 00:00: 00 No 1mg mirtazapine 45 mg tablet 2019-02 00:00: 00 No 1mg ferrous sulfate 325 mg (65 mg iron) tablet,ruchi yed release 2019-02 00:00: 00 No 1(65 mg iron) Flovent HFA 220 mcg/actuati on aerosol inhaler 2019-02 00:00: 00 No 2mcg/ac tuation ProAir HFA 90 mcg/actuati on aerosol inhaler 2019-02 00:00: 00 No 1mcg/ac tuation Voltaren 1 % topical gel 2019-02 00:00: 00 No 1% loratadine 10 mg tablet 2019-02 00:00: 00 No 1mg Epzicom 600 mg-300 mg tablet 2019-02 00:00: 00 No 1mg amlodipine 10 mg tablet 2019-02 00:00: 00 No 1mg losartan 100 mg tablet 2019-02 00:00: 00 No 1mg allopurinol 100 mg tablet 2019-02 00:00: 00 No 1mg citalopram 20 mg tablet 2019-02 00:00: 00 No 1mg atorvastati n 40 mg tablet 2019-02 00:00: 00 No 1mg mirtazapine 45 mg tablet 2019-02 00:00: 00 No 1mg ferrous sulfate 325 mg (65 mg iron) tablet,ruchi yed release 2019-02 00:00: 00 No 1(65 mg iron) Flovent HFA 220 mcg/actuati on aerosol inhaler 2019-02 00:00: 00 No 2mcg/ac tuation ProAir HFA 90 mcg/actuati on aerosol inhaler 2019-02 00:00: 00 No 1mcg/ac tuation Voltaren 1 % topical gel 2019-02 00:00: 00 No 1% loratadine 10 mg tablet 2019-02 00:00: 00 No 1mg Epzicom 600 mg-300 mg tablet 2019-02 00:00: 00 No 1mg amlodipine 10 mg tablet 2019-02 00:00: 00 No 1mg losartan 100 mg tablet 2019-02 00:00: 00 No 1mg allopurinol 100 mg tablet 2019-02 00:00: 00 No 1mg citalopram 20 mg tablet 2019-02 00:00: 00 No 1mg atorvastati n 40 mg tablet 2019-02 00:00: 00 No 1mg mirtazapine 45 mg tablet 2019-02 00:00: 00 No 1mg ferrous sulfate 325 mg (65 mg iron) tablet,ruchi yed release 2019-02 00:00: 00 No 1(65 mg iron) ProAir HFA 90 mcg/actuati on aerosol inhaler 2019-02 00:00: 00 Yes 1mcg/ac tuation Delfino Orta ProAir HFA 90 mcg/actuati on aerosol inhaler 2019-02 00:00: 00 No 1mcg/ac tuation ProAir HFA 90 mcg/actuati on aerosol inhaler 2019-02 00:00: 00 No 1mcg/ac tuation ProAir HFA 90 mcg/actuati on aerosol inhaler 2019-02 00:00: 00 No 1mcg/ac tuation Voltaren 1 % topical gel 2019-02 00:00: 00 Yes 1% Delfino Orta losartan 100 mg tablet 2019-02 00:00: 00 Yes 1mg Delfino Orta amlodipine 10 mg tablet 2019-02 00:00: 00 Yes 1mg Delfino Orta Epzicom 600 mg-300 mg tablet 2019-02 00:00: 00 Yes 1mg Delfino Orta ibuprofen 800 mg tablet 2019-02 00:00: 00 Yes 1mg Delfino Orta loratadine 10 mg tablet 2019-02 00:00: 00 Yes 1mg Delfino Orta Voltaren 1 % topical gel 2019-02 00:00: 00 No 1% losartan 100 mg tablet 2019-02 00:00: 00 No 1mg amlodipine 10 mg tablet 2019-02 00:00: 00 No 1mg Epzicom 600 mg-300 mg tablet 2019-02 00:00: 00 No 1mg ibuprofen 800 mg tablet 2019-02 00:00: 00 No 1mg loratadine 10 mg tablet 2019-02 00:00: 00 No 1mg Voltaren 1 % topical gel 2019-02 00:00: 00 No 1% losartan 100 mg tablet 2019-02 00:00: 00 No 1mg amlodipine 10 mg tablet 2019-02 00:00: 00 No 1mg Epzicom 600 mg-300 mg tablet 2019-02 00:00: 00 No 1mg ibuprofen 800 mg tablet 2019-02 00:00: 00 No 1mg Voltaren 1 % topical gel 2019-02 00:00: 00 No 1% loratadine 10 mg tablet 2019-02 00:00: 00 No 1mg losartan 100 mg tablet 2019-02 00:00: 00 No 1mg amlodipine 10 mg tablet 2019-02 00:00: 00 No 1mg Epzicom 600 mg-300 mg tablet 2019-02 00:00: 00 No 1mg ibuprofen 800 mg tablet 2019-02 00:00: 00 No 1mg loratadine 10 mg tablet 2019-02 00:00: 00 No 1mg Epzicom 600 mg-300 mg tablet 11-05 00:00: 00 Yes 1mg Delfino Orta Epzicom 600 mg-300 mg tablet 11-05 00:00: 00 No 1mg Epzicom 600 mg-300 mg tablet 11-05 00:00: 00 No 1mg Epzicom 600 mg-300 mg tablet 11-05 00:00: 00 No 1mg ProAir HFA 90 mcg/actuati on aerosol inhaler 09-23 00:00: 00 Yes 1mcg/ac tuation Delfino Orta nystatin-tr iamcinolone 100,000 unit/g-0.1 % topical cream 09-23 00:00: 00 Yes 1unit/g -% Delfino Orta amlodipine 10 mg tablet 09-23 00:00: 00 Yes 1mg Delfino Orta ibuprofen 800 mg tablet 09-23 00:00: 00 Yes 1mg Delfino Orta losartan 100 mg tablet 09-23 00:00: 00 Yes 1mg Delfino Orta loratadine 10 mg tablet 09-23 00:00: 00 Yes 1mg Delfino Orta Epzicom 600 mg-300 mg tablet 09-23 00:00: 00 Yes 1mg Delfino Orta ProAir HFA 90 mcg/actuati on aerosol inhaler 09-23 00:00: 00 No 1mcg/ac tuation nystatin-tr iamcinolone 100,000 unit/g-0.1 % topical cream 09-23 00:00: 00 No 1unit/g -% amlodipine 10 mg tablet 09-23 00:00: 00 No 1mg ibuprofen 800 mg tablet 09-23 00:00: 00 No 1mg losartan 100 mg tablet 09-23 00:00: 00 No 1mg loratadine 10 mg tablet 09-23 00:00: 00 No 1mg Epzicom 600 mg-300 mg tablet 09-23 00:00: 00 No 1mg ProAir HFA 90 mcg/actuati on aerosol inhaler 09-23 00:00: 00 No 1mcg/ac tuation nystatin-tr iamcinolone 100,000 unit/g-0.1 % topical cream 09-23 00:00: 00 No 1unit/g -% amlodipine 10 mg tablet 09-23 00:00: 00 No 1mg ibuprofen 800 mg tablet 09-23 00:00: 00 No 1mg losartan 100 mg tablet 09-23 00:00: 00 No 1mg loratadine 10 mg tablet 09-23 00:00: 00 No 1mg Epzicom 600 mg-300 mg tablet 09-23 00:00: 00 No 1mg ProAir HFA 90 mcg/actuati on aerosol inhaler 09-23 00:00: 00 No 1mcg/ac tuation nystatin-tr iamcinolone 100,000 unit/g-0.1 % topical cream 09-23 00:00: 00 No 1unit/g -% amlodipine 10 mg tablet 09-23 00:00: 00 No 1mg ibuprofen 800 mg tablet 09-23 00:00: 00 No 1mg losartan 100 mg tablet 09-23 00:00: 00 No 1mg loratadine 10 mg tablet 09-23 00:00: 00 No 1mg Epzicom 600 mg-300 mg tablet 09-23 00:00: 00 No 1mg Flovent HFA 220 mcg/actuati on aerosol inhaler 06-23 00:00: 00 Yes 2mcg/ac tuation Delfino Orta ProAir HFA 90 mcg/actuati on aerosol inhaler 06-23 00:00: 00 Yes 1mcg/ac tuation Delfino Orta citalopram 20 mg tablet 06-23 00:00: 00 Yes 1mg Delfino Orta atorvastati n 40 mg tablet 06-23 00:00: 00 Yes 1mg Dlefino Orta losartan 100 mg tablet 06-23 00:00: 00 Yes 1mg Delfino Orta allopurinol 100 mg tablet 06-23 00:00: 00 Yes 1mg Delfino Orta Epzicom 600 mg-300 mg tablet 06-23 00:00: 00 Yes 1mg Delfino Orta loratadine 10 mg tablet 06-23 00:00: 00 Yes 1mg Delfino Orta ibuprofen 800 mg tablet 06-23 00:00: 00 Yes 1mg Delfino Orta amlodipine 10 mg tablet 06-23 00:00: 00 Yes 1mg Delfino Orta mirtazapine 45 mg tablet 06-23 00:00: 00 Yes 1mg Delfino Orta hydroxyzine pamoate 50 mg capsule 06-23 00:00: 00 Yes 1mg Delfino Orta Flovent HFA 220 mcg/actuati on aerosol inhaler 06-23 00:00: 00 No 2mcg/ac tuation ProAir HFA 90 mcg/actuati on aerosol inhaler 06-23 00:00: 00 No 1mcg/ac tuation citalopram 20 mg tablet 06-23 00:00: 00 No 1mg atorvastati n 40 mg tablet 06-23 00:00: 00 No 1mg losartan 100 mg tablet 06-23 00:00: 00 No 1mg allopurinol 100 mg tablet 06-23 00:00: 00 No 1mg Epzicom 600 mg-300 mg tablet 06-23 00:00: 00 No 1mg loratadine 10 mg tablet 06-23 00:00: 00 No 1mg ibuprofen 800 mg tablet 06-23 00:00: 00 No 1mg amlodipine 10 mg tablet 06-23 00:00: 00 No 1mg mirtazapine 45 mg tablet 06-23 00:00: 00 No 1mg hydroxyzine pamoate 50 mg capsule 06-23 00:00: 00 No 1mg Flovent HFA 220 mcg/actuati on aerosol inhaler 06-23 00:00: 00 No 2mcg/ac tuation ProAir HFA 90 mcg/actuati on aerosol inhaler 06-23 00:00: 00 No 1mcg/ac tuation citalopram 20 mg tablet 06-23 00:00: 00 No 1mg atorvastati n 40 mg tablet 06-23 00:00: 00 No 1mg losartan 100 mg tablet 06-23 00:00: 00 No 1mg allopurinol 100 mg tablet 06-23 00:00: 00 No 1mg Epzicom 600 mg-300 mg tablet 06-23 00:00: 00 No 1mg loratadine 10 mg tablet 06-23 00:00: 00 No 1mg ibuprofen 800 mg tablet 06-23 00:00: 00 No 1mg amlodipine 10 mg tablet 06-23 00:00: 00 No 1mg mirtazapine 45 mg tablet 06-23 00:00: 00 No 1mg hydroxyzine pamoate 50 mg capsule 06-23 00:00: 00 No 1mg Flovent HFA 220 mcg/actuati on aerosol inhaler 06-23 00:00: 00 No 2mcg/ac tuation ProAir HFA 90 mcg/actuati on aerosol inhaler 06-23 00:00: 00 No 1mcg/ac tuation citalopram 20 mg tablet 06-23 00:00: 00 No 1mg atorvastati n 40 mg tablet 06-23 00:00: 00 No 1mg losartan 100 mg tablet 06-23 00:00: 00 No 1mg allopurinol 100 mg tablet 06-23 00:00: 00 No 1mg Epzicom 600 mg-300 mg tablet 06-23 00:00: 00 No 1mg loratadine 10 mg tablet 06-23 00:00: 00 No 1mg ibuprofen 800 mg tablet 06-23 00:00: 00 No 1mg amlodipine 10 mg tablet 06-23 00:00: 00 No 1mg mirtazapine 45 mg tablet 06-23 00:00: 00 No 1mg hydroxyzine pamoate 50 mg capsule 06-23 00:00: 00 No 1mg ibuprofen 800 mg tablet 05-20 00:00: 00 Yes 1mg Delfino Orta ibuprofen 800 mg tablet 05-20 00:00: 00 No 1mg ibuprofen 800 mg tablet 05-20 00:00: 00 No 1mg ibuprofen 800 mg tablet 05-20 00:00: 00 No 1mg Flovent HFA 220 mcg/actuati on aerosol inhaler 05-04 00:00: 00 Yes 2mcg/ac tuation Delfino Orta ProAir HFA 90 mcg/actuati on aerosol inhaler 05-04 00:00: 00 Yes 1mcg/ac tuation Delfino Orta Epzicom 600 mg-300 mg tablet 05-04 00:00: 00 Yes 1mg Delfino Orta citalopram 20 mg tablet -24 00:00: 00 Yes 1mg Delfino Orta montelukast 10 mg tablet -24 00:00: 00 Yes 1mg Delfino Orta atorvastati n 40 mg tablet - 00:00: 00 Yes 1mg Delfino Orta losartan 100 mg tablet 3-24 00:00: 00 Yes 1mg Delfino Orta amlodipine 10 mg tablet 05-04 00:00: 00 Yes 1mg Delfino Orta allopurinol 100 mg tablet 05-04 00:00: 00 Yes 1mg Delfino Orta loratadine 10 mg tablet 05-04 00:00: 00 Yes 1mg Delfino Orta mirtazapine 45 mg tablet 05-04 00:00: 00 Yes 1mg Delfino Orta ferrous sulfate 325 mg (65 mg iron) tablet,ruchi yed release 05-04 00:00: 00 Yes 1(65 mg iron) Delfino Orta fluticasone propionate 50 mcg/actuati on nasal spray,suspe nsion 05-04 00:00: 00 Yes 1mcg/ac tuation Delfino Orta hydroxyzine pamoate 50 mg capsule 05-04 00:00: 00 Yes 1mg Delfino Orta Flovent HFA 220 mcg/actuati on aerosol inhaler 05-04 00:00: 00 No 2mcg/ac tuation ProAir HFA 90 mcg/actuati on aerosol inhaler 05-04 00:00: 00 No 1mcg/ac tuation Epzicom 600 mg-300 mg tablet 05-04 00:00: 00 No 1mg citalopram 20 mg tablet 05-04 00:00: 00 No 1mg montelukast 10 mg tablet 05-04 00:00: 00 No 1mg atorvastati n 40 mg tablet 05-04 00:00: 00 No 1mg losartan 100 mg tablet 05-04 00:00: 00 No 1mg amlodipine 10 mg tablet 05-04 00:00: 00 No 1mg allopurinol 100 mg tablet 05-04 00:00: 00 No 1mg loratadine 10 mg tablet 05-04 00:00: 00 No 1mg mirtazapine 45 mg tablet 05-04 00:00: 00 No 1mg ferrous sulfate 325 mg (65 mg iron) tablet,ruchi yed release 05-04 00:00: 00 No 1(65 mg iron) fluticasone propionate 50 mcg/actuati on nasal spray,suspe nsion 05-04 00:00: 00 No 1mcg/ac tuation hydroxyzine pamoate 50 mg capsule 05-04 00:00: 00 No 1mg Flovent HFA 220 mcg/actuati on aerosol inhaler 05-04 00:00: 00 No 2mcg/ac tuation ProAir HFA 90 mcg/actuati on aerosol inhaler 05-04 00:00: 00 No 1mcg/ac tuation Epzicom 600 mg-300 mg tablet 05-04 00:00: 00 No 1mg citalopram 20 mg tablet 05-04 00:00: 00 No 1mg montelukast 10 mg tablet 05-04 00:00: 00 No 1mg atorvastati n 40 mg tablet 05-04 00:00: 00 No 1mg losartan 100 mg tablet 05-04 00:00: 00 No 1mg amlodipine 10 mg tablet 05-04 00:00: 00 No 1mg allopurinol 100 mg tablet 05-04 00:00: 00 No 1mg loratadine 10 mg tablet 05-04 00:00: 00 No 1mg mirtazapine 45 mg tablet 05-04 00:00: 00 No 1mg ferrous sulfate 325 mg (65 mg iron) tablet,ruchi yed release 05-04 00:00: 00 No 1(65 mg iron) fluticasone propionate 50 mcg/actuati on nasal spray,suspe nsion 05-04 00:00: 00 No 1mcg/ac tuation hydroxyzine pamoate 50 mg capsule 05-04 00:00: 00 No 1mg Flovent HFA 220 mcg/actuati on aerosol inhaler 05-04 00:00: 00 No 2mcg/ac tuation ProAir HFA 90 mcg/actuati on aerosol inhaler 05-04 00:00: 00 No 1mcg/ac tuation Epzicom 600 mg-300 mg tablet 05-04 00:00: 00 No 1mg citalopram 20 mg tablet 05-04 00:00: 00 No 1mg montelukast 10 mg tablet 05-04 00:00: 00 No 1mg atorvastati n 40 mg tablet 05-04 00:00: 00 No 1mg losartan 100 mg tablet 05-04 00:00: 00 No 1mg amlodipine 10 mg tablet 05-04 00:00: 00 No 1mg allopurinol 100 mg tablet 05-04 00:00: 00 No 1mg loratadine 10 mg tablet 05-04 00:00: 00 No 1mg mirtazapine 45 mg tablet 05-04 00:00: 00 No 1mg ferrous sulfate 325 mg (65 mg iron) tablet,ruchi yed release 05-04 00:00: 00 No 1(65 mg iron) fluticasone propionate 50 mcg/actuati on nasal spray,suspe nsion 05-04 00:00: 00 No 1mcg/ac tuation hydroxyzine pamoate 50 mg capsule 05-04 00:00: 00 No 1mg metronidazo le 500 mg tablet 04-03 00:00: 00 Yes 1mg Delfino Orta metronidazo le 500 mg tablet 04-03 00:00: 00 No 1mg metronidazo le 500 mg tablet 04-03 00:00: 00 No 1mg metronidazo le 500 mg tablet 04-03 00:00: 00 No 1mg fluconazole 150 mg tablet 03-31 00:00: 00 Yes 1mg Delfino F You fluconazole 150 mg tablet 03-31 00:00: 00 No 1mg fluconazole 150 mg tablet 03-31 00:00: 00 No 1mg fluconazole 150 mg tablet 03-31 00:00: 00 No 1mg Flovent HFA 220 mcg/actuati on aerosol inhaler 2 00:00: 00 Yes 2mcg/ac tuation Delfino Orta ProAir HFA 90 mcg/actuati on aerosol inhaler 2 00:00: 00 Yes 1mcg/ac tuation Delfino Orta Epzicom 600 mg-300 mg tablet 2 00:00: 00 Yes 1mg Delfino Endy You Flovent HFA 220 mcg/actuati on aerosol inhaler 2020-0 2-11 00:00: 00 No 2mcg/ac tuation Flovent HFA 220 mcg/actuati on aerosol inhaler 2019-0 2-11 00:00: 00 No 2mcg/ac tuation ProAir HFA 90 mcg/actuati on aerosol inhaler 2019-0 2-11 00:00: 00 No 1mcg/ac tuation Epzicom 600 mg-300 mg tablet 2019-0 2-11 00:00: 00 No 1mg ProAir HFA 90 mcg/actuati on aerosol inhaler 2019-0 2-11 00:00: 00 No 1mcg/ac tuation Epzicom 600 mg-300 mg tablet 0 2-11 00:00: 00 No 1mg Flovent HFA 220 mcg/actuati on aerosol inhaler 2019-0 2-11 00:00: 00 No 2mcg/ac tuation ProAir HFA 90 mcg/actuati on aerosol inhaler 2019-0 2-11 00:00: 00 No 1mcg/ac tuation Epzicom 600 mg-300 mg tablet 0 2-11 00:00: 00 No 1mg ProAir HFA 90 mcg/actuati on aerosol inhaler 2019-0 1-16 00:00: 00 Yes 1mcg/ac tuation Delfino Orta ProAir HFA 90 mcg/actuati on aerosol inhaler 2019-0 1-16 00:00: 00 No 1mcg/ac tuation ProAir HFA 90 mcg/actuati on aerosol inhaler 2019-0 1-16 00:00: 00 No 1mcg/ac tuation ProAir HFA 90 mcg/actuati on aerosol inhaler 2019-0 1-16 00:00: 00 No 1mcg/ac tuation Flovent HFA 220 mcg/actuati on aerosol inhaler 0 1-08 00:00: 00 Yes 2mcg/ac tuation Delfino Orta allopurinol 100 mg tablet 0 1-08 00:00: 00 Yes 1mg Delfino Orta losartan 100 mg tablet 0 1-08 00:00: 00 Yes 1mg Delfino Orta amlodipine 10 mg tablet 0 1-08 00:00: 00 Yes 1mg Delfino Orta atorvastati n 40 mg tablet 0 1-08 00:00: 00 Yes 1mg Delfino Orta citalopram 20 mg tablet 02-18 00:00: 00 Yes 1mg Delfino Orta montelukast 10 mg tablet 02-18 00:00: 00 Yes 1mg Delfino Orta mirtazapine 30 mg tablet 02-18 00:00: 00 Yes 1mg Delfino Orta ferrous sulfate 325 mg (65 mg iron) tablet,ruchi yed release 02-18 00:00: 00 Yes 1(65 mg iron) Delfino Orta fluticasone propionate 50 mcg/actuati on nasal spray,suspe nsion 02-18 00:00: 00 Yes 1mcg/ac tuation Delfino Orta indomethaci n 25 mg capsule 02-18 00:00: 00 Yes 1mg Delfino Orta Flovent HFA 220 mcg/actuati on aerosol inhaler 02-18 00:00: 00 No 2mcg/ac tuation allopurinol 100 mg tablet 02-18 00:00: 00 No 1mg losartan 100 mg tablet 02-18 00:00: 00 No 1mg amlodipine 10 mg tablet 02-18 00:00: 00 No 1mg atorvastati n 40 mg tablet 02-18 00:00: 00 No 1mg citalopram 20 mg tablet 02-18 00:00: 00 No 1mg montelukast 10 mg tablet 02-18 00:00: 00 No 1mg mirtazapine 30 mg tablet 02-18 00:00: 00 No 1mg ferrous sulfate 325 mg (65 mg iron) tablet,ruchi yed release 02-18 00:00: 00 No 1(65 mg iron) fluticasone propionate 50 mcg/actuati on nasal spray,suspe nsion 02-18 00:00: 00 No 1mcg/ac tuation indomethaci n 25 mg capsule 02-18 00:00: 00 No 1mg Flovent HFA 220 mcg/actuati on aerosol inhaler 02-18 00:00: 00 No 2mcg/ac tuation allopurinol 100 mg tablet 02-18 00:00: 00 No 1mg losartan 100 mg tablet 02-18 00:00: 00 No 1mg amlodipine 10 mg tablet 02-18 00:00: 00 No 1mg atorvastati n 40 mg tablet 02-18 00:00: 00 No 1mg citalopram 20 mg tablet 02-18 00:00: 00 No 1mg montelukast 10 mg tablet 02-18 00:00: 00 No 1mg mirtazapine 30 mg tablet 02-18 00:00: 00 No 1mg ferrous sulfate 325 mg (65 mg iron) tablet,ruchi yed release 02-18 00:00: 00 No 1(65 mg iron) fluticasone propionate 50 mcg/actuati on nasal spray,suspe nsion 02-18 00:00: 00 No 1mcg/ac tuation indomethaci n 25 mg capsule 02-18 00:00: 00 No 1mg Flovent HFA 220 mcg/actuati on aerosol inhaler 02-18 00:00: 00 No 2mcg/ac tuation allopurinol 100 mg tablet 02-18 00:00: 00 No 1mg losartan 100 mg tablet 02-18 00:00: 00 No 1mg amlodipine 10 mg tablet 02-18 00:00: 00 No 1mg atorvastati n 40 mg tablet 02-18 00:00: 00 No 1mg citalopram 20 mg tablet 02-18 00:00: 00 No 1mg montelukast 10 mg tablet 02-18 00:00: 00 No 1mg mirtazapine 30 mg tablet 02-18 00:00: 00 No 1mg ferrous sulfate 325 mg (65 mg iron) tablet,ruchi yed release 02-18 00:00: 00 No 1(65 mg iron) fluticasone propionate 50 mcg/actuati on nasal spray,suspe nsion 02-18 00:00: 00 No 1mcg/ac tuation indomethaci n 25 mg capsule - 00:00: 00 No 1mg allopurinol 100 mg tablet 2018-02 00:00: 00 Yes 1mg Delfino F You amlodipine 10 mg tablet 2018-02 00:00: 00 Yes 1mg Delfino Orta mirtazapine 30 mg tablet 2018-02 00:00: 00 Yes 1mg Delfino Orta fluticasone propionate 50 mcg/actuati on nasal spray,suspe nsion 2018-02 00:00: 00 Yes 1mcg/ac tuation Delfino Orta allopurinol 100 mg tablet 2018-02 00:00: 00 No 1mg amlodipine 10 mg tablet 2018-02 00:00: 00 No 1mg mirtazapine 30 mg tablet 2018-02 00:00: 00 No 1mg fluticasone propionate 50 mcg/actuati on nasal spray,suspe nsion 2018-02 00:00: 00 No 1mcg/ac tuation allopurinol 100 mg tablet 2018-02 00:00: 00 No 1mg amlodipine 10 mg tablet 2018-02 00:00: 00 No 1mg mirtazapine 30 mg tablet 2018-02 00:00: 00 No 1mg fluticasone propionate 50 mcg/actuati on nasal spray,suspe nsion 2018-02 00:00: 00 No 1mcg/ac tuation allopurinol 100 mg tablet 2018-02 00:00: 00 No 1mg amlodipine 10 mg tablet 2018-02 00:00: 00 No 1mg mirtazapine 30 mg tablet 2018-02 00:00: 00 No 1mg fluticasone propionate 50 mcg/actuati on nasal spray,suspe nsion 2018-02 00:00: 00 No 1mcg/ac tuation ProAir HFA 90 mcg/actuati on aerosol inhaler 2018-02 00:00: 00 Yes 1mcg/ac tuation Delfino Orta ProAir HFA 90 mcg/actuati on aerosol inhaler 2018-02 00:00: 00 No 1mcg/ac tuation ProAir HFA 90 mcg/actuati on aerosol inhaler 2018-02 00:00: 00 No 1mcg/ac tuation ProAir HFA 90 mcg/actuati on aerosol inhaler 2018-02 00:00: 00 No 1mcg/ac tuation mirtazapine 30 mg tablet 2018-02 00:00: 00 Yes 1mg Delfino Orta mirtazapine 30 mg tablet 2018-02 00:00: 00 No 1mg mirtazapine 30 mg tablet 2018-02 00:00: 00 No 1mg mirtazapine 30 mg tablet 2018-02 00:00: 00 No 1mg indomethaci n 25 mg capsule 2018-02 00:00: 00 Yes 1mg Delfino Orta indomethaci n 25 mg capsule 2018-02 00:00: 00 No 1mg indomethaci n 25 mg capsule 2018-02 00:00: 00 No 1mg indomethaci n 25 mg capsule 2018-02 00:00: 00 No 1mg fluticasone propionate 50 mcg/actuati on nasal spray,suspe nsion 2018-02 00:00: 00 Yes 1mcg/ac tuation Delfino Orta fluticasone propionate 50 mcg/actuati on nasal spray,suspe nsion 2018-02 00:00: 00 No 1mcg/ac tuation fluticasone propionate 50 mcg/actuati on nasal spray,suspe nsion 2018-02 00:00: 00 No 1mcg/ac tuation fluticasone propionate 50 mcg/actuati on nasal spray,suspe nsion 2018-02 00:00: 00 No 1mcg/ac tuation Flovent HFA 220 mcg/actuati on aerosol inhaler 2018-0224 00:00: 00 Yes 2mcg/ac tuation Delfino Orta Flovent HFA 220 mcg/actuati on aerosol inhaler 2018-0224 00:00: 00 No 2mcg/ac tuation Flovent HFA 220 mcg/actuati on aerosol inhaler 2018-0224 00:00: 00 No 2mcg/ac tuation Flovent HFA 220 mcg/actuati on aerosol inhaler 2018-02 024 00:00: 00 No 2mcg/ac tuation Bactrim DS 800 mg-160 mg tablet 2018-02 0 00:00: 00 Yes 1mg Delfino Orta Bactrim DS 800 mg-160 mg tablet 2018-02 0-21 00:00: 00 No 1mg Bactrim DS 800 mg-160 mg tablet 2018-02 021 00:00: 00 No 1mg Bactrim DS 800 mg-160 mg tablet 2018-02 0-21 00:00: 00 No 1mg Flovent HFA 220 mcg/actuati on aerosol inhaler 2018-02 016 00:00: 00 Yes 2mcg/ac tuation Delfino Orta ProAir HFA 90 mcg/actuati on aerosol inhaler 2018-02 016 00:00: 00 Yes 1mcg/ac tuation Delfino Orta allopurinol 100 mg tablet 2018-02 016 00:00: 00 Yes 1mg Delfino Orta amlodipine 10 mg tablet 2018-02 016 00:00: 00 Yes 1mg Delfino Orta mirtazapine 30 mg tablet 2018-02 016 00:00: 00 Yes 1mg Delfino Orta Flovent HFA 220 mcg/actuati on aerosol inhaler 2018-02 016 00:00: 00 No 2mcg/ac tuation ProAir HFA 90 mcg/actuati on aerosol inhaler 2018-02 016 00:00: 00 No 1mcg/ac tuation allopurinol 100 mg tablet 2018-02 016 00:00: 00 No 1mg amlodipine 10 mg tablet 2018-02 016 00:00: 00 No 1mg mirtazapine 30 mg tablet 2018-02 016 00:00: 00 No 1mg Flovent HFA 220 mcg/actuati on aerosol inhaler 2018-02 016 00:00: 00 No 2mcg/ac tuation ProAir HFA 90 mcg/actuati on aerosol inhaler 2018-02 016 00:00: 00 No 1mcg/ac tuation allopurinol 100 mg tablet 2018-02 016 00:00: 00 No 1mg amlodipine 10 mg tablet 2018-02 016 00:00: 00 No 1mg mirtazapine 30 mg tablet 2018-02 0-16 00:00: 00 No 1mg Flovent HFA 220 mcg/actuati on aerosol inhaler 2018-02 016 00:00: 00 No 2mcg/ac tuation ProAir HFA 90 mcg/actuati on aerosol inhaler 2018-0216 00:00: 00 No 1mcg/ac tuation allopurinol 100 mg tablet 2018-0216 00:00: 00 No 1mg amlodipine 10 mg tablet 2018-0216 00:00: 00 No 1mg mirtazapine 30 mg tablet 2018-0216 00:00: 00 No 1mg loratadine 10 mg tablet 2018-0209 00:00: 00 Yes 1mg Delfino Orta fluticasone propionate 50 mcg/actuati on nasal spray,suspe nsion 2018-02 00:00: 00 Yes 1mcg/ac tuation Delfino Orta loratadine 10 mg tablet 2018-02 00:00: 00 No 1mg fluticasone propionate 50 mcg/actuati on nasal spray,suspe nsion 2018-02 00:00: 00 No 1mcg/ac tuation loratadine 10 mg tablet 2018-02 00:00: 00 No 1mg fluticasone propionate 50 mcg/actuati on nasal spray,suspe nsion 2018-02 00:00: 00 No 1mcg/ac tuation loratadine 10 mg tablet 2018-02 00:00: 00 No 1mg fluticasone propionate 50 mcg/actuati on nasal spray,suspe nsion 2018-0209 00:00: 00 No 1mcg/ac tuation chlorhexidi ne (PERIDEX) 0.12 % mouthwash 2018-02 007 00:00: 00 Yes [id number] 15mL Swish and spit out 15 mL 2 (two) times daily. [facility] allopurinol 100 mg tablet 11-03 00:00: 00 Yes 1mg Delfino Orta allopurinol 100 mg tablet 11-03 00:00: 00 No 1mg allopurinol 100 mg tablet 11-03 00:00: 00 No 1mg allopurinol 100 mg tablet 11-03 00:00: 00 No 1mg amlodipine 10 mg tablet 10-28 00:00: 00 Yes 1mg Delfino Orta mirtazapine 30 mg tablet 10-28 00:00: 00 Yes 1mg Delfino Orta amlodipine 10 mg tablet 10-28 00:00: 00 No 1mg mirtazapine 30 mg tablet 10-28 00:00: 00 No 1mg amlodipine 10 mg tablet 10-28 00:00: 00 No 1mg mirtazapine 30 mg tablet 10-28 00:00: 00 No 1mg amlodipine 10 mg tablet 10-28 00:00: 00 No 1mg mirtazapine 30 mg tablet 10-28 00:00: 00 No 1mg Flovent HFA 220 mcg/actuati on aerosol inhaler 10-14 00:00: 00 Yes 2mcg/ac tuation Delfino Orta ProAir HFA 90 mcg/actuati on aerosol inhaler 10-14 00:00: 00 Yes 1mcg/ac tuation Delfino Orta loratadine 10 mg tablet 10-14 00:00: 00 Yes 1mg Delfino Orta cyclobenzap rine 10 mg tablet 10-14 00:00: 00 Yes 1mg Delfino Orta fluticasone propionate 50 mcg/actuati on nasal spray,suspe nsion 10-14 00:00: 00 Yes 1mcg/ac tuation Delfino Orta Flovent HFA 220 mcg/actuati on aerosol inhaler 10-14 00:00: 00 No 2mcg/ac tuation ProAir HFA 90 mcg/actuati on aerosol inhaler 10-14 00:00: 00 No 1mcg/ac tuation loratadine 10 mg tablet 10-14 00:00: 00 No 1mg cyclobenzap rine 10 mg tablet 10-14 00:00: 00 No 1mg fluticasone propionate 50 mcg/actuati on nasal spray,suspe nsion 10-14 00:00: 00 No 1mcg/ac tuation Flovent HFA 220 mcg/actuati on aerosol inhaler 10-14 00:00: 00 No 2mcg/ac tuation ProAir HFA 90 mcg/actuati on aerosol inhaler 10-14 00:00: 00 No 1mcg/ac tuation loratadine 10 mg tablet 10-14 00:00: 00 No 1mg cyclobenzap rine 10 mg tablet 10-14 00:00: 00 No 1mg fluticasone propionate 50 mcg/actuati on nasal spray,suspe nsion 10-14 00:00: 00 No 1mcg/ac tuation Flovent HFA 220 mcg/actuati on aerosol inhaler 10-14 00:00: 00 No 2mcg/ac tuation ProAir HFA 90 mcg/actuati on aerosol inhaler 10-14 00:00: 00 No 1mcg/ac tuation loratadine 10 mg tablet 10-14 00:00: 00 No 1mg cyclobenzap rine 10 mg tablet 10-14 00:00: 00 No 1mg fluticasone propionate 50 mcg/actuati on nasal spray,suspe nsion 10-14 00:00: 00 No 1mcg/ac tuation benzonatate 100 mg capsule 10-02 00:00: 00 Yes 1mg Delfino Orta benzonatate 100 mg capsule 10-02 00:00: 00 No 1mg benzonatate 100 mg capsule 10-02 00:00: 00 No 1mg benzonatate 100 mg capsule 10-02 00:00: 00 No 1mg Flovent HFA 220 mcg/actuati on aerosol inhaler 09-08 00:00: 00 Yes 2mcg/ac tuation Delfino Orta ProAir HFA 90 mcg/actuati on aerosol inhaler 09-08 00:00: 00 Yes 1mcg/ac tuation Delfino Orta allopurinol 100 mg tablet 09-08 00:00: 00 Yes 1mg Delfino Orta citalopram 20 mg tablet 09-08 00:00: 00 Yes 1mg Delfino Orta Flovent HFA 220 mcg/actuati on aerosol inhaler 09-08 00:00: 00 No 2mcg/ac tuation ProAir HFA 90 mcg/actuati on aerosol inhaler 09-08 00:00: 00 No 1mcg/ac tuation allopurinol 100 mg tablet 09-08 00:00: 00 No 1mg citalopram 20 mg tablet 09-08 00:00: 00 No 1mg Flovent HFA 220 mcg/actuati on aerosol inhaler 09-08 00:00: 00 No 2mcg/ac tuation ProAir HFA 90 mcg/actuati on aerosol inhaler 09-08 00:00: 00 No 1mcg/ac tuation allopurinol 100 mg tablet 09-08 00:00: 00 No 1mg citalopram 20 mg tablet 09-08 00:00: 00 No 1mg Flovent HFA 220 mcg/actuati on aerosol inhaler 09-08 00:00: 00 No 2mcg/ac tuation ProAir HFA 90 mcg/actuati on aerosol inhaler 09-08 00:00: 00 No 1mcg/ac tuation allopurinol 100 mg tablet 09-08 00:00: 00 No 1mg citalopram 20 mg tablet 09-08 00:00: 00 No 1mg nystatin 100,000 unit/mL oral suspension 08-20 00:00: 00 Yes 10unit/ mL Delfino Orta nystatin 100,000 unit/mL oral suspension 08-20 00:00: 00 No 10unit/ mL nystatin 100,000 unit/mL oral suspension 08-20 00:00: 00 No 10unit/ mL nystatin 100,000 unit/mL oral suspension 08-20 00:00: 00 No 10unit/ mL amlodipine 10 mg tablet 07-23 00:00: 00 Yes 1mg Delfino Orta mirtazapine 30 mg tablet 07-23 00:00: 00 Yes 1mg Delfino Orta indomethaci n 25 mg capsule 07-23 00:00: 00 Yes 1mg Delfino Orta amlodipine 10 mg tablet 07-23 00:00: 00 No 1mg mirtazapine 30 mg tablet 07-23 00:00: 00 No 1mg indomethaci n 25 mg capsule 07-23 00:00: 00 No 1mg amlodipine 10 mg tablet 07-23 00:00: 00 No 1mg mirtazapine 30 mg tablet 07-23 00:00: 00 No 1mg indomethaci n 25 mg capsule 07-23 00:00: 00 No 1mg amlodipine 10 mg tablet 07-23 00:00: 00 No 1mg mirtazapine 30 mg tablet 07-23 00:00: 00 No 1mg indomethaci n 25 mg capsule 07-23 00:00: 00 No 1mg mirtazapine 30 mg tablet 06-18 00:00: 00 Yes 1mg Delfino Orta mirtazapine 30 mg tablet 06-18 00:00: 00 No 1mg mirtazapine 30 mg tablet 06-18 00:00: 00 No 1mg mirtazapine 30 mg tablet 06-18 00:00: 00 No 1mg allopurinol 100 mg tablet 05-21 00:00: 00 Yes 1mg Delfino Orta allopurinol 100 mg tablet 05-21 00:00: 00 No 1mg allopurinol 100 mg tablet 05-21 00:00: 00 No 1mg allopurinol 100 mg tablet 05-21 00:00: 00 No 1mg Flovent HFA 220 mcg/actuati on aerosol inhaler 05-20 00:00: 00 Yes 2mcg/ac tuation Delfino Orta ProAir HFA 90 mcg/actuati on aerosol inhaler 05-20 00:00: 00 Yes 1mcg/ac tuation Delfino Orta amlodipine 10 mg tablet 05-20 00:00: 00 Yes 1mg Delfino Orta citalopram 20 mg tablet 05-20 00:00: 00 Yes 1mg Delfino Orta indomethaci n 25 mg capsule 05-20 00:00: 00 Yes 1mg Delfino Orta Flovent HFA 220 mcg/actuati on aerosol inhaler 05-20 00:00: 00 No 2mcg/ac tuation ProAir HFA 90 mcg/actuati on aerosol inhaler 05-20 00:00: 00 No 1mcg/ac tuation amlodipine 10 mg tablet 05-20 00:00: 00 No 1mg citalopram 20 mg tablet 05-20 00:00: 00 No 1mg indomethaci n 25 mg capsule 05-20 00:00: 00 No 1mg Flovent HFA 220 mcg/actuati on aerosol inhaler 05-20 00:00: 00 No 2mcg/ac tuation ProAir HFA 90 mcg/actuati on aerosol inhaler 05-20 00:00: 00 No 1mcg/ac tuation amlodipine 10 mg tablet 05-20 00:00: 00 No 1mg citalopram 20 mg tablet 05-20 00:00: 00 No 1mg indomethaci n 25 mg capsule 05-20 00:00: 00 No 1mg Flovent HFA 220 mcg/actuati on aerosol inhaler 05-20 00:00: 00 No 2mcg/ac tuation ProAir HFA 90 mcg/actuati on aerosol inhaler 05-20 00:00: 00 No 1mcg/ac tuation amlodipine 10 mg tablet 05-20 00:00: 00 No 1mg citalopram 20 mg tablet 05-20 00:00: 00 No 1mg indomethaci n 25 mg capsule 05-20 00:00: 00 No 1mg indomethaci n 25 mg capsule 05-01 00:00: 00 Yes 1mg Delfino Orta indomethaci n 25 mg capsule 05-01 00:00: 00 No 1mg indomethaci n 25 mg capsule 05-01 00:00: 00 No 1mg indomethaci n 25 mg capsule 05-01 00:00: 00 No 1mg amlodipine 10 mg tablet 04-22 00:00: 00 Yes 1mg Delfino F You amlodipine 10 mg tablet 04-22 00:00: 00 No 1mg amlodipine 10 mg tablet 04-22 00:00: 00 No 1mg amlodipine 10 mg tablet 12 00:00: 00 No 1mg Flovent HFA 220 mcg/actuati on aerosol inhaler 2017-02 003 00:00: 00 Yes 2mcg/ac tuation Delfino F You ProAir HFA 90 mcg/actuati on aerosol inhaler 2017-02 0-03 00:00: 00 Yes 1mcg/ac tuation Delfino Orta citalopram 20 mg tablet 2017-02 0-03 00:00: 00 Yes 1mg Delfino Orta Keflex 500 mg capsule 2017-02 0-03 00:00: 00 Yes 1mg Delfino Orta nystatin 100,000 unit/mL oral suspension 2017-02 0-03 00:00: 00 Yes 5unit/m L Delfino Orta Flovent HFA 220 mcg/actuati on aerosol inhaler 2017-02 0-03 00:00: 00 No 2mcg/ac tuation ProAir HFA 90 mcg/actuati on aerosol inhaler 2017-02 0-03 00:00: 00 No 1mcg/ac tuation citalopram 20 mg tablet 2017-02 0-03 00:00: 00 No 1mg Keflex 500 mg capsule 2017-02 0-03 00:00: 00 No 1mg nystatin 100,000 unit/mL oral suspension 2017-02 0-03 00:00: 00 No 5unit/m L Flovent HFA 220 mcg/actuati on aerosol inhaler 2017-02 0-03 00:00: 00 No 2mcg/ac tuation ProAir HFA 90 mcg/actuati on aerosol inhaler 2017-02 0-03 00:00: 00 No 1mcg/ac tuation citalopram 20 mg tablet 2017-02 0-03 00:00: 00 No 1mg Keflex 500 mg capsule 2017-02 0-03 00:00: 00 No 1mg nystatin 100,000 unit/mL oral suspension 2017-02 0-03 00:00: 00 No 5unit/m L Flovent HFA 220 mcg/actuati on aerosol inhaler 2017-02 0-03 00:00: 00 No 2mcg/ac tuation ProAir HFA 90 mcg/actuati on aerosol inhaler 2017-02 0-03 00:00: 00 No 1mcg/ac tuation citalopram 20 mg tablet 2017-02 0-03 00:00: 00 No 1mg Keflex 500 mg capsule 2017-02 0-03 00:00: 00 No 1mg nystatin 100,000 unit/mL oral suspension 2017-02 0-03 00:00: 00 No 5unit/m L triamcinolo ne acetonide 0.1 % topical cream 11-05 00:00: 00 Yes 1% Delfino Orta triamcinolo ne acetonide 0.1 % topical cream 11-05 00:00: 00 No 1% triamcinolo ne acetonide 0.1 % topical cream 11-05 00:00: 00 No 1% triamcinolo ne acetonide 0.1 % topical cream 11-05 00:00: 00 No 1% amlodipine 10 mg tablet 11-01 00:00: 00 Yes 1mg Delfino Orta amlodipine 10 mg tablet 11-01 00:00: 00 No 1mg amlodipine 10 mg tablet 11-01 00:00: 00 No 1mg amlodipine 10 mg tablet 11-01 00:00: 00 No 1mg Flovent HFA 220 mcg/actuati on aerosol inhaler 09-10 00:00: 00 Yes 2mcg/ac tuation Delfino Orta ProAir HFA 90 mcg/actuati on aerosol inhaler 09-10 00:00: 00 Yes 1mcg/ac tuation Delfino Orta zolpidem 10 mg tablet 09-10 00:00: 00 Yes 1mg Delfino Orta citalopram 20 mg tablet 09-10 00:00: 00 Yes 1mg Delfino Orta prednisone 10 mg tablet 09-10 00:00: 00 Yes 1mg Delfino Orta amlodipine 10 mg tablet 09-10 00:00: 00 Yes 1mg Delfino Orta acetaminoph en 300 mg-codeine 30 mg tablet 09-10 00:00: 00 Yes 1mg Delfino Orta naproxen 500 mg tablet 09-10 00:00: 00 Yes 1mg Delfino Orta ibuprofen 800 mg tablet 09-10 00:00: 00 Yes 1mg Delfino Orta benzonatate 100 mg capsule 09-10 00:00: 00 Yes 1mg Delfino Orta Flovent HFA 220 mcg/actuati on aerosol inhaler 09-10 00:00: 00 No 2mcg/ac tuation ProAir HFA 90 mcg/actuati on aerosol inhaler 09-10 00:00: 00 No 1mcg/ac tuation zolpidem 10 mg tablet 09-10 00:00: 00 No 1mg citalopram 20 mg tablet 09-10 00:00: 00 No 1mg prednisone 10 mg tablet 09-10 00:00: 00 No 1mg amlodipine 10 mg tablet 09-10 00:00: 00 No 1mg acetaminoph en 300 mg-codeine 30 mg tablet 09-10 00:00: 00 No 1mg naproxen 500 mg tablet 09-10 00:00: 00 No 1mg ibuprofen 800 mg tablet 09-10 00:00: 00 No 1mg benzonatate 100 mg capsule 09-10 00:00: 00 No 1mg Flovent HFA 220 mcg/actuati on aerosol inhaler 09-10 00:00: 00 No 2mcg/ac tuation ProAir HFA 90 mcg/actuati on aerosol inhaler 09-10 00:00: 00 No 1mcg/ac tuation zolpidem 10 mg tablet 09-10 00:00: 00 No 1mg citalopram 20 mg tablet 09-10 00:00: 00 No 1mg prednisone 10 mg tablet 09-10 00:00: 00 No 1mg amlodipine 10 mg tablet 09-10 00:00: 00 No 1mg acetaminoph en 300 mg-codeine 30 mg tablet 09-10 00:00: 00 No 1mg naproxen 500 mg tablet 09-10 00:00: 00 No 1mg ibuprofen 800 mg tablet 09-10 00:00: 00 No 1mg benzonatate 100 mg capsule 09-10 00:00: 00 No 1mg Flovent HFA 220 mcg/actuati on aerosol inhaler 09-10 00:00: 00 No 2mcg/ac tuation ProAir HFA 90 mcg/actuati on aerosol inhaler 09-10 00:00: 00 No 1mcg/ac tuation zolpidem 10 mg tablet 09-10 00:00: 00 No 1mg citalopram 20 mg tablet 09-10 00:00: 00 No 1mg prednisone 10 mg tablet 09-10 00:00: 00 No 1mg amlodipine 10 mg tablet 09-10 00:00: 00 No 1mg acetaminoph en 300 mg-codeine 30 mg tablet 09-10 00:00: 00 No 1mg naproxen 500 mg tablet 09-10 00:00: 00 No 1mg ibuprofen 800 mg tablet 09-10 00:00: 00 No 1mg benzonatate 100 mg capsule 09-10 00:00: 00 No 1mg Tessalon Perles 100 mg capsule 08-30 00:00: 00 Yes 1mg Delfino Orta Tessalon Perles 100 mg capsule 08-30 00:00: 00 No 1mg Tessalon Perles 100 mg capsule 08-30 00:00: 00 No 1mg Tessalon Perles 100 mg capsule 08-30 00:00: 00 No 1mg hydrocortis one 0.5 % topical cream 08-27 00:00: 00 Yes 1% Delfino Orta benzonatate 100 mg capsule 08-27 00:00: 00 Yes 1mg Delfino Orta hydrocortis one 0.5 % topical cream 08-27 00:00: 00 No 1% benzonatate 100 mg capsule 08-27 00:00: 00 No 1mg hydrocortis one 0.5 % topical cream 08-27 00:00: 00 No 1% benzonatate 100 mg capsule 08-27 00:00: 00 No 1mg hydrocortis one 0.5 % topical cream 08-27 00:00: 00 No 1% benzonatate 100 mg capsule 08-27 00:00: 00 No 1mg Flovent HFA 220 mcg/actuati on aerosol inhaler 07-25 00:00: 00 Yes 2mcg/ac tuation Delfino Orta Augmentin 875 mg-125 mg tablet 07-25 00:00: 00 Yes 1mg Delfino Orta Flovent HFA 220 mcg/actuati on aerosol inhaler 07-25 00:00: 00 No 2mcg/ac tuation Augmentin 875 mg-125 mg tablet 07-25 00:00: 00 No 1mg Flovent HFA 220 mcg/actuati on aerosol inhaler 07-25 00:00: 00 No 2mcg/ac tuation Augmentin 875 mg-125 mg tablet 07-25 00:00: 00 No 1mg Flovent HFA 220 mcg/actuati on aerosol inhaler 07-25 00:00: 00 No 2mcg/ac tuation Augmentin 875 mg-125 mg tablet 07-25 00:00: 00 No 1mg loratadine 10 mg tablet 07-09 00:00: 00 Yes 1mg Delfino Orta loratadine 10 mg tablet 07-09 00:00: 00 No 1mg loratadine 10 mg tablet 07-09 00:00: 00 No 1mg loratadine 10 mg tablet 07-09 00:00: 00 No 1mg naproxen 500 mg tablet 06-26 00:00: 00 Yes 1mg Delfino Orta naproxen 500 mg tablet 06-26 00:00: 00 No 1mg naproxen 500 mg tablet 06-26 00:00: 00 No 1mg naproxen 500 mg tablet 06-26 00:00: 00 No 1mg permethrin 5 % topical cream 06-17 00:00: 00 Yes 1% Delfino Orta amlodipine 10 mg tablet 06-17 00:00: 00 Yes 1mg Delfino Orta allopurinol 300 mg tablet 06-17 00:00: 00 Yes 1mg Delfino Orta gabapentin 300 mg capsule 06-17 00:00: 00 Yes 1mg Delfino Orta promethazin e-DM 6.25 mg-15 mg/5 mL syrup 06-17 00:00: 00 Yes 5mg/5 mL Delfino Orta permethrin 5 % topical cream 06-17 00:00: 00 No 1% amlodipine 10 mg tablet 06-17 00:00: 00 No 1mg allopurinol 300 mg tablet 06-17 00:00: 00 No 1mg gabapentin 300 mg capsule 06-17 00:00: 00 No 1mg promethazin e-DM 6.25 mg-15 mg/5 mL syrup 06-17 00:00: 00 No 5mg/5 mL permethrin 5 % topical cream 06-17 00:00: 00 No 1% amlodipine 10 mg tablet 06-17 00:00: 00 No 1mg allopurinol 300 mg tablet 06-17 00:00: 00 No 1mg gabapentin 300 mg capsule 06-17 00:00: 00 No 1mg promethazin e-DM 6.25 mg-15 mg/5 mL syrup 06-17 00:00: 00 No 5mg/5 mL permethrin 5 % topical cream 06-17 00:00: 00 No 1% amlodipine 10 mg tablet 06-17 00:00: 00 No 1mg allopurinol 300 mg tablet 06-17 00:00: 00 No 1mg gabapentin 300 mg capsule 06-17 00:00: 00 No 1mg promethazin e-DM 6.25 mg-15 mg/5 mL syrup 06-17 00:00: 00 No 5mg/5 mL amlodipine 10 mg tablet 04-04 00:00: 00 Yes 1mg Delfino Orta benazepril 10 mg tablet 04-04 00:00: 00 Yes 1mg Delfino Orta Diflucan 150 mg tablet 04-04 00:00: 00 Yes 1mg Delfino Orta amlodipine 10 mg tablet 04-04 00:00: 00 No 1mg benazepril 10 mg tablet 04-04 00:00: 00 No 1mg Diflucan 150 mg tablet 04-04 00:00: 00 No 1mg amlodipine 10 mg tablet 04-04 00:00: 00 No 1mg benazepril 10 mg tablet 04-04 00:00: 00 No 1mg Diflucan 150 mg tablet 04-04 00:00: 00 No 1mg amlodipine 10 mg tablet 04-04 00:00: 00 No 1mg benazepril 10 mg tablet 04-04 00:00: 00 No 1mg Diflucan 150 mg tablet 04-04 00:00: 00 No 1mg amitriptyli ne 100 mg tablet 03-04 00:00: 00 Yes 1mg Delfino Orta amitriptyli ne 100 mg tablet 03-04 00:00: 00 No 1mg amitriptyli ne 100 mg tablet 03-04 00:00: 00 No 1mg amitriptyli ne 100 mg tablet 03-04 00:00: 00 No 1mg allopurinol 300 mg tablet 02-19 00:00: 00 Yes 1mg Delfino Orta prednisone 20 mg tablet 02-19 00:00: 00 Yes mg Delfino Orta allopurinol 300 mg tablet 02-19 00:00: 00 No 1mg prednisone 20 mg tablet 02-19 00:00: 00 No mg allopurinol 300 mg tablet 02-19 00:00: 00 No 1mg prednisone 20 mg tablet 02-19 00:00: 00 No mg allopurinol 300 mg tablet 02-19 00:00: 00 No 1mg prednisone 20 mg tablet 02-19 00:00: 00 No mg gabapentin 300 mg capsule 02-18 00:00: 00 Yes 1mg Delfino Orta gabapentin 300 mg capsule 02-18 00:00: 00 No 1mg gabapentin 300 mg capsule 02-18 00:00: 00 No 1mg gabapentin 300 mg capsule 02-18 00:00: 00 No 1mg Symbicort 160 mcg-4.5 mcg/actuati on HFA aerosol inhaler 2016-02 00:00: 00 Yes 1mcg/ac tuation Delfino Orta ibuprofen 800 mg tablet 2016-02 00:00: 00 Yes 1mg Delfino Orta Symbicort 160 mcg-4.5 mcg/actuati on HFA aerosol inhaler 2016-02 00:00: 00 No 1mcg/ac tuation ibuprofen 800 mg tablet 2016-02 00:00: 00 No 1mg Symbicort 160 mcg-4.5 mcg/actuati on HFA aerosol inhaler 2016-02 00:00: 00 No 1mcg/ac tuation ibuprofen 800 mg tablet 2016-02 00:00: 00 No 1mg Symbicort 160 mcg-4.5 mcg/actuati on HFA aerosol inhaler 2016-02 00:00: 00 No 1mcg/ac tuation ibuprofen 800 mg tablet 2016-02 00:00: 00 No 1mg sulfamethox azole 800 mg-trimetho prim 160 mg tablet 2016-02 00:00: 00 Yes 1mg Delfino Orta ibuprofen 800 mg tablet 2016-02 00:00: 00 Yes 1mg Delfino Orta sulfamethox azole 800 mg-trimetho prim 160 mg tablet 2016-02 00:00: 00 No 1mg ibuprofen 800 mg tablet 2016-02 00:00: 00 No 1mg sulfamethox azole 800 mg-trimetho prim 160 mg tablet 2016-02 00:00: 00 No 1mg sulfamethox azole 800 mg-trimetho prim 160 mg tablet 2016-02 00:00: 00 No 1mg ibuprofen 800 mg tablet 2016-02 00:00: 00 No 1mg ibuprofen 800 mg tablet 2016-02 00:00: 00 No 1mg loratadine 10 mg tablet 2016-02 00:00: 00 Yes 1mg Delfino Orta Tussin DM 10 mg-100 mg/5 mL syrup 2016-02 00:00: 00 Yes 10mg/5 mL Delfino Orta loratadine 10 mg tablet 2016-02 00:00: 00 No 1mg Tussin DM 10 mg-100 mg/5 mL syrup 2016-02 00:00: 00 No 10mg/5 mL loratadine 10 mg tablet 2016-02 00:00: 00 No 1mg Tussin DM 10 mg-100 mg/5 mL syrup 2016-02 00:00: 00 No 10mg/5 mL loratadine 10 mg tablet 2016-02 00:00: 00 No 1mg Tussin DM 10 mg-100 mg/5 mL syrup 2016-02 00:00: 00 No 10mg/5 mL Epzicom 600 mg-300 mg tablet 11-07 00:00: 00 Yes 1mg Delfino Orta Epzicom 600 mg-300 mg tablet 11-07 00:00: 00 Yes 1mg Delfino Orta Epzicom 600 mg-300 mg tablet 11-07 00:00: 00 No 1mg Epzicom 600 mg-300 mg tablet 11-07 00:00: 00 No 1mg Epzicom 600 mg-300 mg tablet 11-07 00:00: 00 No 1mg Epzicom 600 mg-300 mg tablet 11-07 00:00: 00 No 1mg Epzicom 600 mg-300 mg tablet 11-07 00:00: 00 No 1mg Epzicom 600 mg-300 mg tablet 11-07 00:00: 00 No 1mg amlodipine 10 mg tablet 10-23 00:00: 00 Yes 1mg Delfino Orta amlodipine 10 mg tablet 10-23 00:00: 00 No 1mg amlodipine 10 mg tablet 10-23 00:00: 00 No 1mg amlodipine 10 mg tablet 10-23 00:00: 00 No 1mg prednisone 20 mg tablet 08-21 00:00: 00 Yes 2mg Delfino Orta indomethaci n 50 mg capsule 08-21 00:00: 00 Yes 1mg Delfino Orta prednisone 20 mg tablet 08-21 00:00: 00 No 2mg indomethaci n 50 mg capsule 08-21 00:00: 00 No 1mg prednisone 20 mg tablet 08-21 00:00: 00 No 2mg indomethaci n 50 mg capsule 08-21 00:00: 00 No 1mg prednisone 20 mg tablet 08-21 00:00: 00 No 2mg indomethaci n 50 mg capsule 08-21 00:00: 00 No 1mg ibuprofen 800 mg tablet 08-20 00:00: 00 Yes 1mg Delfino Orta ibuprofen 800 mg tablet 08-20 00:00: 00 No 1mg ibuprofen 800 mg tablet 08-20 00:00: 00 No 1mg ibuprofen 800 mg tablet 08-20 00:00: 00 No 1mg Symbicort 160 mcg-4.5 mcg/actuati on HFA aerosol inhaler 06-04 00:00: 00 Yes 1mcg/ac tuation Delfino Orta citalopram 20 mg tablet 06-04 00:00: 00 Yes 1mg Delfino Orta amitriptyli ne 100 mg tablet 06-04 00:00: 00 Yes 12mg Delfino Orta azithromyci n 250 mg tablet 06-04 00:00: 00 Yes 1mg Delfino Orta Symbicort 160 mcg-4.5 mcg/actuati on HFA aerosol inhaler 06-04 00:00: 00 No 1mcg/ac tuation citalopram 20 mg tablet 06-04 00:00: 00 No 1mg amitriptyli ne 100 mg tablet 06-04 00:00: 00 No 12mg azithromyci n 250 mg tablet 06-04 00:00: 00 No 1mg Symbicort 160 mcg-4.5 mcg/actuati on HFA aerosol inhaler 06-04 00:00: 00 No 1mcg/ac tuation citalopram 20 mg tablet 06-04 00:00: 00 No 1mg amitriptyli ne 100 mg tablet 06-04 00:00: 00 No 12mg azithromyci n 250 mg tablet 06-04 00:00: 00 No 1mg Symbicort 160 mcg-4.5 mcg/actuati on HFA aerosol inhaler 06-04 00:00: 00 No 1mcg/ac tuation citalopram 20 mg tablet 06-04 00:00: 00 No 1mg amitriptyli ne 100 mg tablet 06-04 00:00: 00 No 12mg azithromyci n 250 mg tablet 06-04 00:00: 00 No 1mg Cetirizine (ZYRTEC) 10 mg capsule 2014-02 1-13 00:00: 00 Yes 10mg Take 1 Cap by mouth at bedtime. [facility] Immunizations Ordered Immunization Name Filled Immunization Name Date Status Comments Source Hep A-Hep B Hep A-Hep B 2022-09-24 00:00:00 Completed Delfino Orta influenza, injectable influenza, injectable 2022-09-24 00:00:00 Completed Delfino Orta SHINGRIX VACCINE SHINGRIX VACCINE 2022-09-24 00:00:00 Completed Delfino Orta Hep A-Hep B Hep A-Hep B 2022-09-24 00:00:00 Completed Delfino Orta influenza, injectable influenza, injectable 2022-09-24 00:00:00 Completed Delfino Orta SHINGRIX VACCINE SHINGRIX VACCINE 2022-09-24 00:00:00 Completed Delfino Orta Evusheld (Cilgavimab) 2021-06-13 00:00:00 Completed [facility] Evusheld (Tixagevimab) 2021-06-13 00:00:00 Completed [facility] Evusheld (Cilgavimab) 2021-06-13 00:00:00 Completed [facility] Evusheld (Tixagevimab) 2021-06-13 00:00:00 Completed [facility] Evusheld (Cilgavimab) 2021-06-13 00:00:00 Completed [facility] Evusheld (Tixagevimab) 2021-06-13 00:00:00 Completed [facility] Evusheld (Cilgavimab) 2021-06-13 00:00:00 Completed [facility] Evusheld (Tixagevimab) 2021-06-13 00:00:00 Completed [facility] Evusheld (Cilgavimab) 2021-06-13 00:00:00 Completed [facility] Evusheld (Tixagevimab) 2021-06-13 00:00:00 Completed [facility] Evusheld (Cilgavimab) 2021-06-13 00:00:00 Completed [facility] Evusheld (Tixagevimab) 2021-06-13 00:00:00 Completed [facility] Evusheld (Cilgavimab) 2021-06-13 00:00:00 Completed [facility] Evusheld (Tixagevimab) 2021-06-13 00:00:00 Completed [facility] Evusheld (Cilgavimab) 2021-06-13 00:00:00 Completed [facility] Evusheld (Tixagevimab) 2021-06-13 00:00:00 Completed [facility] Evusheld (Cilgavimab) 2021-06-13 00:00:00 Completed [facility] Evusheld (Tixagevimab) 2021-06-13 00:00:00 Completed [facility] Evusheld (Cilgavimab) 2021-06-13 00:00:00 Completed [facility] Evusheld (Tixagevimab) 2021-06-13 00:00:00 Completed [facility] Evusheld (Cilgavimab) 2021-06-13 00:00:00 Completed [facility] Evusheld (Tixagevimab) 2021-06-13 00:00:00 Completed [facility] Evusheld (Cilgavimab) 2021-06-13 00:00:00 Completed [facility] Evusheld (Tixagevimab) 2021-06-13 00:00:00 Completed [facility] Moderna COVID-19 Vaccine Moderna COVID-19 Vaccine 2021-02-20 00:00:00 Completed eDlfino Orta Moderna COVID-19 Vaccine Moderna COVID-19 Vaccine 2021-02-20 00:00:00 Completed Delfino Orta Moderna COVID-19 Vaccine Moderna COVID-19 Vaccine 2020-05-03 00:00:00 Completed Delfino Orta Moderna COVID-19 Vaccine Moderna COVID-19 Vaccine 2020-05-03 00:00:00 Completed Delfino Orta Moderna COVID-19 Vaccine Moderna COVID-19 Vaccine 2020-04-05 00:00:00 Completed Delfino Orta Moderna COVID-19 Vaccine Moderna COVID-19 Vaccine 2020-04-05 00:00:00 Completed Delfino Orta TDAP 2014-08-19 00:00:00 Completed [facility] TDAP 2014-08-19 00:00:00 Completed [facility] TDAP 2014-08-19 00:00:00 Completed [facility] TDAP 2014-08-19 00:00:00 Completed [facility] TDAP 2014-08-19 00:00:00 Completed [facility] TDAP 2014-08-19 00:00:00 Completed [facility] TDAP 2014-08-19 00:00:00 Completed [facility] TDAP 2014-08-19 00:00:00 Completed [facility] TDAP 2014-08-19 00:00:00 Completed [facility] TDAP 2014-08-19 00:00:00 Completed [facility] TDAP 2014-08-19 00:00:00 Completed [facility] TDAP 2014-08-19 00:00:00 Completed [facility] Influenza Virus Vaccine 2012-01-21 00:00:00 Completed [facility] Influenza Virus Vaccine 2012-01-21 00:00:00 Completed [facility] Influenza Virus Vaccine 2012-01-21 00:00:00 Completed [facility] Influenza Virus Vaccine 2012-01-21 00:00:00 Completed [facility] Influenza Virus Vaccine 2012-01-21 00:00:00 Completed [facility] Influenza Virus Vaccine 2012-01-21 00:00:00 Completed [facility] Influenza Virus Vaccine 2012-01-21 00:00:00 Completed [facility] Influenza Virus Vaccine 2012-01-21 00:00:00 Completed [facility] Influenza Virus Vaccine 2012-01-21 00:00:00 Completed [facility] Influenza Virus Vaccine 2012-01-21 00:00:00 Completed [facility] Influenza Virus Vaccine 2012-01-21 00:00:00 Completed [facility] Influenza Virus Vaccine 2012-01-21 00:00:00 Completed [facility] Influenza Virus Vaccine Unknown Completed [facility] TDAP Unknown Completed [facility] Evusheld (Cilgavimab) Unknown Completed [facility] Evusheld (Tixagevimab) Unknown Completed [facility] Influenza Virus Vaccine Unknown Completed [facility] TDAP Unknown Completed [facility] Evusheld (Cilgavimab) Unknown Completed [facility] Evusheld (Tixagevimab) Unknown Completed [facility] Influenza Virus Vaccine Unknown Completed [facility] TDAP Unknown Completed [facility] Evusheld (Cilgavimab) Unknown Completed [facility] Evusheld (Tixagevimab) Unknown Completed [facility] Influenza Virus Vaccine Unknown Completed [facility] TDAP Unknown Completed [facility] Evusheld (Cilgavimab) Unknown Completed [facility] Evusheld (Tixagevimab) Unknown Completed [facility] Vital Signs Vital Name Observation Time Observation Value Comments S ource Respiratory rate 2023-05-20 20:47:00 16 /min [facility] Oxygen saturation in Arterial blood by Pulse oximetry 2023-05-20 20:47:00 97 /min [facility] Systolic blood pressure 2023-05-20 16:21:00 136 mm[Hg] [facility] Diastolic blood pressure 2023-05-20 16:21:00 81 mm[Hg] [facility] Heart rate 2023-05-20 16:21:00 81 /min [facility] Body temperature 2023-05-20 16:21:00 36.17 [facility] Body weight 2023-05-20 08:12:00 57.063 kg [facility] BMI 2023-05-20 08:12:00 22.28 kg/m2 [facility] Body height 2023-05-16 20:58:00 160 cm [facility] Systolic blood pressure 2023-03-20 16:43:00 154 mm[Hg] [facility] Diastolic blood pressure 2023-03-20 16:43:00 87 mm[Hg] [facility] Heart rate 2023-03-20 16:43:00 77 /min [facility] Body temperature 2023-03-20 16:43:00 36.39 [facility] Respiratory rate 2023-03-20 16:43:00 16 /min [facility] Body height 2023-03-20 16:43:00 160 cm [facility] Body weight 2023-03-20 16:43:00 51.71 kg [facility] BMI 2023-03-20 16:43:00 20.19 kg/m2 [facility] Oxygen saturation in Arterial blood by Pulse oximetry 2023-03-20 16:43:00 100 /min [facility] Systolic blood pressure 2022-09-17 19:28:58 166 mm[Hg] [facility] Diastolic blood pressure 2022-09-17 19:28:58 103 mm[Hg] [facility] Heart rate 2022-09-17 19:28:58 78 /min [facility] Body temperature 2022-09-17 19:28:58 37.06 [facility] Respiratory rate 2022-09-17 19:28:58 18 /min [facility] Oxygen saturation in Arterial blood by Pulse oximetry 2022-09-17 19:28:58 98 /min [facility] Body height 2022-09-17 16:43:00 160 cm [facility] Body weight 2022-09-17 16:43:00 51.71 kg [facility] BMI 2022-09-17 16:43:00 20.19 kg/m2 [facility] Systolic blood pressure 2022-04-03 19:20:00 106 mm[Hg] [facility] Diastolic blood pressure 2022-04-03 19:20:00 72 mm[Hg] [facility] Heart rate 2022-04-03 19:20:00 104 /min [facility] Body temperature 2022-04-03 19:20:00 36.22 [facility] Respiratory rate 2022-04-03 19:20:00 18 /min [facility] Body height 2022-04-03 19:20:00 162.6 cm [facility] Body weight 2022-04-03 19:20:00 46.72 kg [facility] BMI 2022-04-03 19:20:00 17.68 kg/m2 [facility] Oxygen saturation in Arterial blood by Pulse oximetry 2022-04-03 19:20:00 89 /min [facility] Systolic blood pressure 2021-07-18 20:42:00 174 mm[Hg] [facility] Diastolic blood pressure 2021-07-18 20:42:00 98 mm[Hg] [facility] Heart rate 2021-07-18 20:42:00 104 /min [facility] Body temperature 2021-07-18 20:42:00 35.72 [facility] Body height 2021-07-18 20:42:00 160 cm [facility] Body weight 2021-07-18 20:42:00 56.246 kg [facility] BMI 2021-07-18 20:42:00 21.97 kg/m2 [facility] BP Systolic 2023-09-23 14:04:00 117 mm[Hg] Step hen [facility] You BP Diastolic 2023-09-23 14:04:00 76 mm[Hg] Samm phen F You Weight Measured 2023-09-23 14:04:00 123.20 pounds Delfino Orta Height Measured 2023-09-23 14:04:00 63.00 inches Delfino Orta Body Temperature 2023-09-23 14:04:00 97.40 degrees Delfino F You Heart Rate 2023-09-23 14:04:00 77.00 /min Araceli en F You Respiratory Rate 2023-09-23 14:04:00 Delfino F You BP Systolic 2023-09-10 09:27:00 137 mm[Hg] Step hen F You BP Diastolic 2023-09-10 09:27:00 79 mm[Hg] Samm phen F You Weight Measured 2023-09-10 09:27:00 124.40 pounds Delfino F You Height Measured 2023-09-10 09:27:00 63.00 inches Delfino F You Body Temperature 2023-09-10 09:27:00 97.10 degrees Delfino F You Heart Rate 2023-09-10 09:27:00 81.00 /min Araceli en F You Respiratory Rate 2023-09-10 09:27:00 18.00 /min Delfino F You BP Systolic 2023-08-28 13:11:00 123 mm[Hg] Step hen F You BP Diastolic 2023-08-28 13:11:00 71 mm[Hg] Samm phen F You Weight Measured 2023-08-28 13:11:00 131.80 pounds Delfino F You Height Measured 2023-08-28 13:11:00 63.00 inches Delfino F You Body Temperature 2023-08-28 13:11:00 97.30 degrees Delfino F You Heart Rate 2023-08-28 13:11:00 85.00 /min Araceli en F You Respiratory Rate 2023-08-28 13:11:00 19.00 /min Delfino F You BP Systolic 2023-08-09 15:15:00 130 mm[Hg] Step hen F You BP Diastolic 2023-08-09 15:15:00 73 mm[Hg] Samm phen F You Weight Measured 2023-08-09 15:15:00 122.20 pounds Delfino F You Height Measured 2023-08-09 15:15:00 63.00 inches Delfino F You Body Temperature 2023-08-09 15:15:00 98.20 degrees Delfino F You Heart Rate 2023-08-09 15:15:00 70.00 /min Araceli en F You Respiratory Rate 2023-08-09 15:15:00 17.00 /min Delfino F You BP Systolic 2023-07-24 11:22:00 143 mm[Hg] Step hen F You BP Diastolic 2023-07-24 11:22:00 82 mm[Hg] Samm phen F You Weight Measured 2023-07-24 11:22:00 130.60 pounds Delfino F You Height Measured 2023-07-24 11:22:00 63.00 inches Delfino F You Body Temperature 2023-07-24 11:22:00 97.90 degrees Delfino F You Heart Rate 2023-07-24 11:22:00 76.00 /min Araceli en F You Respiratory Rate 2023-07-24 11:22:00 16.00 /min Delfino F You BP Systolic 2023-07-09 14:45:00 125 mm[Hg] Step hen F You BP Diastolic 2023-07-09 14:45:00 89 mm[Hg] Samm phen F You Weight Measured 2023-07-09 14:45:00 120.00 pounds Delfino F You Height Measured 2023-07-09 14:45:00 63.00 inches Delfino F You Body Temperature 2023-07-09 14:45:00 Delfino F You Heart Rate 2023-07-09 14:45:00 Araceli en F You Respiratory Rate 2023-07-09 14:45:00 Delfino F You BP Systolic 2023-06-04 13:35:00 110 mm[Hg] Step hen F You BP Diastolic 2023-06-04 13:35:00 77 mm[Hg] Samm phen F You Weight Measured 2023-06-04 13:35:00 120.00 pounds Delfino F You Height Measured 2023-06-04 13:35:00 63.00 inches Delfino F You Body Temperature 2023-06-04 13:35:00 98.20 degrees Delfino F You Heart Rate 2023-06-04 13:35:00 82.00 /min Araceli en F You Respiratory Rate 2023-06-04 13:35:00 17.00 /min Delfino F You BP Systolic 2023-05-09 14:07:00 136 mm[Hg] Step hen F You BP Diastolic 2023-05-09 14:07:00 84 mm[Hg] Samm phen F You Weight Measured 2023-05-09 14:07:00 122.80 pounds Delfino F You Height Measured 2023-05-09 14:07:00 63.00 inches Delfino F You Body Temperature 2023-05-09 14:07:00 98.00 degrees Delfino F You Heart Rate 2023-05-09 14:07:00 97.00 /min Araceli en F You Respiratory Rate 2023-05-09 14:07:00 17.00 /min Delfino F You BP Systolic 2023-04-18 10:19:00 148 mm[Hg] Step hen F You BP Diastolic 2023-04-18 10:19:00 83 mm[Hg] Samm phen F You Weight Measured 2023-04-18 10:19:00 121.00 pounds Delfino F You Height Measured 2023-04-18 10:19:00 63.00 inches Delfino F You Body Temperature 2023-04-18 10:19:00 98.30 degrees Delfino F You Heart Rate 2023-04-18 10:19:00 93.00 /min Araceli en F You Respiratory Rate 2023-04-18 10:19:00 18.00 /min Delfino F You BP Systolic 2023-04-02 09:45:00 140 mm[Hg] Step hen F You BP Diastolic 2023-04-02 09:45:00 90 mm[Hg] Samm phen F You Weight Measured 2023-04-02 09:45:00 120.40 pounds Delfino F You Height Measured 2023-04-02 09:45:00 63.00 inches Delfino F You Body Temperature 2023-04-02 09:45:00 98.20 degrees Delfino F You Heart Rate 2023-04-02 09:45:00 98.00 /min Araceli en F You Respiratory Rate 2023-04-02 09:45:00 18.00 /min Delfino F You BP Systolic 2023-03-14 14:47:00 139 mm[Hg] Step hen F You BP Diastolic 2023-03-14 14:47:00 82 mm[Hg] Samm phen F You Weight Measured 2023-03-14 14:47:00 119.40 pounds Delfino F You Height Measured 2023-03-14 14:47:00 63.00 inches Delfino F You Body Temperature 2023-03-14 14:47:00 98.10 degrees Delfino F You Heart Rate 2023-03-14 14:47:00 63.00 /min Araceli en F You Respiratory Rate 2023-03-14 14:47:00 18.00 /min Delfino F You BP Systolic 2023-03-07 14:04:00 144 mm[Hg] Step hen F You BP Diastolic 2023-03-07 14:04:00 88 mm[Hg] Samm phen F You Weight Measured 2023-03-07 14:04:00 119.80 pounds Delfino F You Height Measured 2023-03-07 14:04:00 63.00 inches Delfino F You Body Temperature 2023-03-07 14:04:00 98.20 degrees Delfino F You Heart Rate 2023-03-07 14:04:00 98.00 /min Araceli en F You Respiratory Rate 2023-03-07 14:04:00 19.00 /min Delfino F You BP Systolic 2023-03-01 13:43:00 Step hen F You BP Diastolic 2023-03-01 13:43:00 Samm phen F You Weight Measured 2023-03-01 13:43:00 140.00 pounds Delfino F You Height Measured 2023-03-01 13:43:00 63.00 inches Delfino F You Body Temperature 2023-03-01 13:43:00 Delfino F You Heart Rate 2023-03-01 13:43:00 Araceli en F You Respiratory Rate 2023-03-01 13:43:00 Delfino F You BP Systolic 2022-12-14 15:00:00 149 mm[Hg] Step hen F You BP Diastolic 2022-12-14 15:00:00 98 mm[Hg] Samm phen F You Weight Measured 2022-12-14 15:00:00 117.40 pounds Delfino F You Height Measured 2022-12-14 15:00:00 63.00 inches Delfino F You Body Temperature 2022-12-14 15:00:00 98.20 degrees Delfino F You Heart Rate 2022-12-14 15:00:00 97.00 /min Araceli en F You Respiratory Rate 2022-12-14 15:00:00 19.00 /min Delfino F You BP Systolic 2022-10-04 11:32:00 124 mm[Hg] Step hen F You BP Diastolic 2022-10-04 11:32:00 77 mm[Hg] Samm phen F You Weight Measured 2022-10-04 11:32:00 120.00 pounds Delfino F You Height Measured 2022-10-04 11:32:00 63.00 inches Delfino F You Body Temperature 2022-10-04 11:32:00 98.40 degrees Delfino F You Heart Rate 2022-10-04 11:32:00 91.00 /min Araceli en F You Respiratory Rate 2022-10-04 11:32:00 19.00 /min Delfino F You BP Systolic 2022-09-12 09:10:00 130 mm[Hg] Step hen Endy Orta BP Diastolic 2022-09-12 09:10:00 79 mm[Hg] Samm phen F You Weight Measured 2022-09-12 09:10:00 118.80 pounds Delfino Endy Orta Height Measured 2022-09-12 09:10:00 63.00 inches Delfino F You Body Temperature 2022-09-12 09:10:00 98.10 degrees Delfino Endy Orta Heart Rate 2022-09-12 09:10:00 87.00 /min Araceli en F You Respiratory Rate 2022-09-12 09:10:00 18.00 /min Delfino Endy Orta BP Systolic 2022-02-28 11:50:00 122 mm[Hg] BP [...] Procedure Date / Time Performed Performing Clinician Source BASIC METABOLIC PANEL (NA, K, CL, CO2, GLUCOSE, BUN, CREATININE, CA) 2023-05-20 08:28:00 Dawn Eddy [facility] CBC WITH DIFF 2023-05-20 08:28:00 Dawn Eddy [facility] TROPONIN I 2023-05-19 10:21:00 Daniel Arreaga [facility] BASIC METABOLIC PANEL (NA, K, CL, CO2, GLUCOSE, BUN, CREATININE, CA) 2023-05-19 10:21:00 Dawn Eddy [facility] LIPID PANEL (67786)(TOTAL CHOLESTEROL, TRIGLYCERIDES, HDL) 2023-05-19 10:21:00 [facility] [place] [facility] SUBSET ASSAY 2023-05-19 10:21:00 Daniel Arreaga [facility] UREA NITROGEN URINE 2023-05-18 08:30:00 Lefty Abreu [facility] COMP. METABOLIC PANEL (68370) 2023-05-17 18:43:00 Ezra, Anyi [facility] CBC WITH DIFF 2023-05-17 18:43:00 [facility]CROSCOPIC 2023-05-17 14:17:00 Essence Abreu [facility] SODIUM, URINE RANDOM 2023-05-17 14:16:00 Brady Lefty [facility] PROTEIN CREAT RATIO URINE RANDOM 2023-05-17 14:16:00 Brady Lefty [facility] TROPONIN I 2023-05-17 13:54:00 Brady Lefty [facility] TRANSTHORACIC ECHO (TTE) COMPLETE 2023-05-17 12:45:00 Kvng Roberson [facility] CREATININE 2023-05-17 03:28:00 Brady [facility] TROPONIN I 2023-05-16 21:13:00 Kvng Roberson [facility] ACUTE CARE VENOUS BLOOD GAS 2023-05-16 18:21:00 Anyi Hearn [facility] XR CHEST 1 VW 2023-05-16 18:00:09 Anyi Hearn [facility] LIPASE 2023-05-16 17:40:00 Anyi Hearn [facility] TROPONIN I 2023-05-16 17:40:00 Anyi Hearn [facility] COMP. METABOLIC PANEL (64444) 2023-05-16 17:40:00 Anyi Hearn [facility] CBC WITH DIFF 2023-05-16 17:40:00 Anyi Hearn [facility] HB ECG ROUTINE & RHYTHM STRIP 2023-05-16 17:21:17 Anyi Hearn [facility] ASSIGNMENT OF BENEFITS 2023-03-20 17:45:01 Docto r Unassigned, [place] [facility] CONSENT/REFUSAL FOR DIAGNOSIS AND TREATMENT 2023-03-20 16:29:12 Doctor Unassigned, [place] [facility] XR SPINE THORACIC 2 VW 2022-09-17 18:21:00 Vannesa Hobbs [facility] CONSENT/REFUSAL FOR DIAGNOSIS AND TREATMENT 2022-09-17 16:35:17 Doctor Unassigned, [place] [facility] REFERRAL- REQUEST/RESPONSE 2022-06-05 05:01:00 Doctor Unassigned, [place] [facility] HSV 1&2, VZV NAAT 2022-04-03 20:43:00 Guerline Garcia Betty [facility] REFERRAL- REQUEST/RESPONSE 2022-01-19 06:01:00 Doctor Unassigned, [place] [facility] [address] Ecg Routine Ecg W/least 12 Lds W/i r 2016-10-23 00:00:00 Delfino Orta Plan of Care Planned Activity Planned Date Details Comments Source Goal Plan of Care Note [code = 56893-0] Goal Plan of Care Note [code = 93276-8] Goal Plan of Care Note [code = 26204-2] Goal Plan of Care Note [code = 56901-6] Goal Plan of Care Note [code = 68662-2] Goal Plan of Care Note [code = 32101-0] Goal Plan of Care Note [code = 94997-8] Goal Plan of Care Note [code = 60767-4] Goal Plan of Care Note [code = 47353-7] Goal Plan of Care Note [code = 67877-5] Goal Plan of Care Note [code = 70272-9] Goal Plan of Care Note [code = 02860-6] Goal Plan of Care Note [code = 27734-0] Goal Plan of Care Note [code = 12182-2] Goal Plan of Care Note [code = 57376-2] Goal Plan of Care Note [code = 08406-6] Goal Plan of Care Note [code = 28518-3] Goal Plan of Care Note [code = 96369-5] Goal Plan of Care Note [code = 75308-8] Goal Plan of Care Note [code = 39805-7] Goal Plan of Care Note [code = 64837-1] Goal Plan of Care Note [code = 47058-1] Goal Plan of Care Note [code = 32694-6] Goal Plan of Care Note [code = 19616-9] Goal Plan of Care Note [code = 95800-2] Goal Plan of Care Note [code = 50136-4] Goal Plan of Care Note [code = 15502-4] Goal Plan of Care Note [code = 95585-1] Goal Plan of Care Note [code = 77065-6] Goal Plan of Care Note [code = 43179-7] Goal Plan of Care Note [code = 32014-2] Goal Plan of Care Note [code = 65340-8] Goal Plan of Care Note [code = 23931-1] Goal Plan of Care Note [code = 68258-5] Goal Plan of Care Note [code = 72685-4] Goal Plan of Care Note [code = 75168-5] Goal Plan of Care Note [code = 50113-8] Goal Plan of Care Note [code = 18217-6] Goal Plan of Care Note [code = 39780-5] Goal Plan of Care Note [code = 32071-5] Goal Plan of Care Note [code = 76737-2] Goal Plan of Care Note [code = 97287-5] Goal Plan of Care Note [code = 22558-1] Goal Plan of Care Note [code = 71766-1] Goal Plan of Care Note [code = 73990-7] Goal Plan of Care Note [code = 74649-4] Goal Plan of Care Note [code = 81876-7] Goal Plan of Care Note [code = 52413-9] Goal Plan of Care Note [code = 01164-3] Goal Plan of Care Note [code = 54933-9] Goal Plan of Care Note [code = 21579-4] Goal Plan of Care Note [code = 26930-2] Goal Plan of Care Note [code = 70800-6] Goal Plan of Care Note [code = 27938-3] Goal Plan of Care Note [code = 23106-9] Goal Plan of Care Note [code = 56273-9] Goal Plan of Care Note [code = 60240-4] Goal Plan of Care Note [code = 53537-3] Goal Plan of Care Note [code = 82303-6] Goal Plan of Care Note [code = 52821-6] Goal Plan of Care Note [code = 39317-8] Goal Plan of Care Note [code = 09917-7] Goal Plan of Care Note [code = 59405-9] Goal Plan of Care Note [code = 69037-5] Goal Plan of Care Note [code = 06410-1] Goal Plan of Care Note [code = 77226-1] Goal Plan of Care Note [code = 22124-8] Goal Plan of Care Note [code = 25782-2] Goal Plan of Care Note [code = 35698-8] Goal Plan of Care Note [code = 92804-4] Goal Plan of Care Note [code = 65148-0] Goal Plan of Care Note [code = 11283-5] Goal Plan of Care Note [code = 50092-1] Goal Plan of Care Note [code = 11951-4] Goal Plan of Care Note [code = 99169-4] Goal Plan of Care Note [code = 10699-6] Goal Plan of Care Note [code = 95954-3] Goal Plan of Care Note [code = 79748-3] Goal Plan of Care Note [code = 96290-5] Goal Plan of Care Note [code = 42113-9] Goal Plan of Care Note [code = 99131-2] Goal Plan of Care Note [code = 15068-2] Goal Plan of Care Note [code = 15906-0] Goal Plan of Care Note [code = 41145-1] Goal Plan of Care Note [code = 81485-8] Goal Plan of Care Note [code = 94257-5] Goal Plan of Care Note [code = 21533-3] Goal Plan of Care Note [code = 61856-5] Goal Plan of Care Note [code = 23785-4] Goal Plan of Care Note [code = 96766-9] Goal Plan of Care Note [code = 98894-2] Goal Plan of Care Note [code = 52998-5] Goal Plan of Care Note [code = 65628-9] Goal Plan of Care Note [code = 90955-5] Goal Plan of Care Note [code = 65244-4] Goal Plan of Care Note [code = 60296-3] Goal Plan of Care Note [code = 51079-3] Goal Plan of Care Note [code = 01305-6] Goal Plan of Care Note [code = 17229-9] Goal Plan of Care Note [code = 73941-1] Goal Plan of Care Note [code = 71123-9] Goal Plan of Care Note [code = 03964-7] Goal Plan of Care Note [code = 09928-0] Goal Plan of Care Note [code = 76970-2] Goal Plan of Care Note [code = 65202-2] Goal Plan of Care Note [code = 89472-3] Goal Plan of Care Note [code = 48958-3] Goal Plan of Care Note [code = 58602-7] Goal Plan of Care Note [code = 70272-3] Goal Plan of Care Note [code = 29042-7] Goal Plan of Care Note [code = 45753-4] Goal Plan of Care Note [code = 38916-9] Goal Plan of Care Note [code = 05009-6] Goal Plan of Care Note [code = 08288-5] Goal Plan of Care Note [code = 67974-4] Goal Plan of Care Note [code = 61252-4] Goal Plan of Care Note [code = 84659-9] Goal Plan of Care Note [code = 56776-2] Goal Plan of Care Note [code = 34051-4] Goal Plan of Care Note [code = 50710-0] Goal Plan of Care Note [code = 08755-2] Goal Plan of Care Note [code = 44238-5] Goal Plan of Care Note [code = 50008-0] Goal Plan of Care Note [code = 81118-1] Goal Plan of Care Note [code = 61554-5] Goal Plan of Care Note [code = 65633-1] Goal Plan of Care Note [code = 30700-4] Goal Plan of Care Note [code = 05470-8] Goal Plan of Care Note [code = 44577-4] Goal Plan of Care Note [code = 85075-4] Goal Plan of Care Note [code = 06277-9] Goal Plan of Care Note [code = 66889-6] Goal Plan of Care Note [code = 21526-0] Goal Plan of Care Note [code = 87439-7] Goal Plan of Care Note [code = 77946-2] Goal Plan of Care Note [code = 52578-5] Goal Plan of Care Note [code = 62288-8] Goal Plan of Care Note [code = 31192-7] Goal Plan of Care Note [code = 24683-4] Goal Plan of Care Note [code = 68125-0] Goal Plan of Care Note [code = 25127-2] Goal Plan of Care Note [code = 66456-5] Goal Plan of Care Note [code = 98337-1] Goal Plan of Care Note [code = 62574-6] Goal Plan of Care Note [code = 76063-9] Goal Plan of Care Note [code = 09644-9] Goal Plan of Care Note [code = 11328-1] Goal Plan of Care Note [code = 25888-8] Goal Plan of Care Note [code = 64974-3] Goal Plan of Care Note [code = 48705-7] Goal Plan of Care Note [code = 00485-7] Goal Plan of Care Note [code = 10137-4] Goal Plan of Care Note [code = 15726-0] Goal Plan of Care Note [code = 52847-9] Goal Plan of Care Note [code = 72984-7] Goal Plan of Care Note [code = 32091-2] Goal Plan of Care Note [code = 58542-9] Goal Plan of Care Note [code = 48819-1] Goal Plan of Care Note [code = 48893-6] Goal Plan of Care Note [code = 58564-8] Goal Plan of Care Note [code = 98888-4] Goal Plan of Care Note [code = 45600-2] Goal Plan of Care Note [code = 87153-2] Goal Plan of Care Note [code = 73665-1] Goal Plan of Care Note [code = 73008-4] Goal Plan of Care Note [code = 90376-8] Goal Plan of Care Note [code = 33986-5] Goal Plan of Care Note [code = 35481-3] Goal Plan of Care Note [code = 29013-3] Goal Plan of Care Note [code = 42604-3] Goal Plan of Care Note [code = 55633-0] Goal Plan of Care Note [code = 92389-9] Goal Plan of Care Note [code = 76760-7] Goal Plan of Care Note [code = 32696-5] Encounters Start Date/Time End Date/Time Encounter Type Admission Type Attending Clinicians Care Facility Care Department Encounter ID Source 2023-03-29 10:18:01 Outpatient Zaria Orellana [facility] [id number] [facility] 2023-03-28 14:01:00 Outpatient Zaria Orellana [facility] [id number] [facility] 2023-03-26 15:20:01 Outpatient Zaria Orellana [facility] [id number] [facility] 2023-09-23 13:55:35 2023-09-23 13:55:35 Outpatient SFA SFA [id number] Delfino Orta 2023-09-23 00:00:00 2023-09-23 00:00:00 Outpatient Visit SFA [id number] ns90l5x6-t acc-4b92-9 w2l-4t92kx [id number] Delfino Orta 2023-09-10 09:05:48 2023-09-10 09:05:48 Outpatient SFA SFA 729 Delfino Orta 2023-09-10 00:00:00 2023-09-10 00:00:00 Outpatient Visit SFA [id number] [id number] 2o4-97g3-0 [id number] Delfino Orta 2023-08-28 13:07:55 2023-08-28 13:07:55 Outpatient SFA SFA 17 Delfino Orta 2023-08-28 00:00:00 2023-08-28 00:00:00 Outpatient Visit SFA [id number] l9f4dizc-0 5s5-5u42-8 1m8-0c0i15 [id number] Delfino Otra 2023-08-22 00:00:00 2023-08-22 00:00:00 Outpatient Visit SFA [id number] 9p0i93p9-3 bc5-4fb0-9 y05-3487n8 66acd9 Delfino Orta 2023-08-09 14:45:50 2023-08-09 14:45:50 Outpatient SFA SFA 627 Delfino Orta 2023-08-09 00:00:00 2023-08-09 00:00:00 Outpatient Visit SFA [id number] fr4sn50e-x 5fc-42da-a [id number] Delfino Orta 2023-07-24 11:05:48 2023-07-24 11:05:48 Outpatient SFA SFA [id number] Delfino Orta 2023-07-24 00:00:00 2023-07-24 00:00:00 Outpatient Visit [facility] [id number] qi4j0a4g-6 41c-49d6-a i8j-8432ax [id number] Delfino Orta 2023-07-09 00:00:00 2023-07-09 00:00:00 Outpatient Visit [facility] [id number] p54-93r2-m [id number] Delfino Orta 2023-07-02 00:00:00 2023-07-02 14:33:10 Letter (Out) Lianet Huerta [facility] .840.114 350.1.13.10 4.2.7.2.686 [id number] [facility] 2023-06-05 13:09:09 2023-06-05 13:09:09 Outpatient SFA [facility] [id number] Delfino Orta 2023-06-04 13:27:22 2023-06-04 13:27:22 Outpatient SFA [facility] [id number] Delfino Schumacher [facility] 2023-06-04 00:00:00 2023-06-04 00:00:00 Outpatient Visit [facility] [id number] u0rv7qe9-m fc5-45eb-a 553-38d34c 0b1f1c Delfino Orta 2023-05-21 00:00:00 2023-05-21 00:00:00 Transition of Care Lj Paredes 1..840.114 350.1.13.10 4.2.7.2.686 [id number] [facility] 2023-05-16 12:13:00 2023-05-20 16:40:00 Inpatient X KVNG ROBERSON [facility] [id number] [facility] 2023-05-16 12:13:00 2023-05-20 16:40:00 Hospital Encounter Anyi Hearn David [facility] 1..840.114 350.1.13.10 4.2.7.2.686 [id number] [facility] 2023-05-09 13:59:33 2023-05-09 13:59:33 Outpatient [place] [id number] Delfino Orta 2023-04-18 10:12:11 2023-04-18 10:12:11 Outpatient CHETAN [place] [id number] Delfino Schumacher [place] 2023-04-02 09:41:47 2023-04-02 09:41:47 Outpatient [place] [id number] Delfino Schumacher [facility] 2023-03-20 10:44:00 2023-03-20 12:35:00 Emergency X ANYI HEARN [facility] ERT [id number] [facility] 2023-03-20 10:44:00 2023-03-20 12:35:00 Emergency EzraAnyi nicholson [facility] 1.2.840.114 350.1.13.10 4.2.7.2.686 [id number] [facility] 2023-03-18 10:58:22 2023-03-18 10:58:22 Outpatient [place] [id number] Delfino Schumacher [facility] 2023-03-14 14:37:27 2023-03-14 14:37:27 Outpatient [place] [id number] Delfino Schumacher [facility] 2023-03-07 13:58:45 2023-03-07 13:58:45 Outpatient [place] [id number] Delfino Schumacher [facility] 2022-12-14 14:53:29 2022-12-14 14:53:29 Outpatient [place] [id number] Delfino Schumacher [facility] 2022-10-04 11:25:10 2022-10-04 11:25:10 Outpatient [place] [id number] Delfino Schumacher [place] 2022-09-17 11:44:00 2022-09-17 14:31:00 Emergency X GASTON HOBBS [facility] ERT [id number] [facility] 2022-09-17 11:44:00 2022-09-17 14:31:00 Emergency Gaston Hobbs [facility] 1..840.114 350.1.13.10 4.2.7.2.686 [id number] [facility] 2022-09-12 09:01:58 2022-09-12 09:01:58 Outpatient [facility] [id number] Delfino Orta 2022-09-11 00:00:00 2022-09-11 00:00:00 Case Management [facility] 1.840.114 350.1.13.10 4.2.7.2.686 [id number] [facility] 2022-08-07 09:45:03 2022-08-07 09:45:03 Outpatient [facility] [id number] Delfino Orta 2022-08-01 13:52:32 2022-08-01 13:52:32 Outpatient [facility] [id number] Delfino Orta 2022-07-18 09:30:00 2022-07-18 09:30:00 Outpatient R CLARITZA JAMISON [facility] [id number] [facility] 2022-07-04 11:11:38 2022-07-04 11:11:38 Outpatient [facility] [id number] Delfino Orta 2022-06-05 00:00:00 2022-06-05 00:00:00 Orders Only Doctor Unassigned, [place] [facility] 1.840.114 350.1.13.10 4.2.7.2.686 [id number] [facility] 2022-05-29 09:31:33 2022-05-29 09:31:33 Outpatient SFA [facility] [id number] Delfino Orta 2022-05-15 13:00:00 2022-05-15 13:00:00 Outpatient R [facility] [id number] [facility] 2022-05-15 09:34:43 2022-05-15 09:34:43 Outpatient SFA SFA [id number] Delfino Orta 2022-04-19 15:25:24 2022-04-19 15:25:24 Outpatient SFA SFA [id number] Delfino Orta 2022-04-04 00:00:00 2022-04-04 00:00:00 Case Management Del Sahara Jeanine [facility] 1..840.114 350.1.13.10 4.2.7.2.686 [id number] [facility] 2022-04-03 13:00:00 2022-04-03 14:00:00 Office Visit Guerline Garcia Jeffrey [facility] 1..840.114 350.1.13.10 4.2.7.2.686 [id number] [facility] 2022-04-03 13:00:00 2022-04-03 13:00:00 Outpatient R GUERO MARTINEZ [facility] [id number] [facility] 2022-04-02 15:14:37 2022-04-02 15:14:37 Outpatient SFA SFA [id number] Delfino Orta 2022-03-28 13:26:46 2022-03-28 13:26:46 Outpatient SFA SFA [id number] Delfino Orta 2022-02-28 11:43:30 2022-02-28 11:43:30 Outpatient SFA SFA [id number] Delfino Orta 2022-02-28 00:00:00 2022-02-28 00:00:00 Outpatient Visit x16t7nv7- p823-78t5 -9cca-918 u178a8l94 [id number] e47p4lb2-m 633-44a8-9 cca-918f69 9a0a89 2022-02-27 15:30:00 2022-02-27 15:30:00 Outpatient R [facility] [id number] [facility] 2022-02-23 10:25:15 2022-02-23 10:25:15 Outpatient SFA SFA [id number] Delfino Orta 2022-02-22 00:00:00 2022-02-22 00:00:00 Case Management Jeanine Almaguer [facility] 1.2.840.114 350.1.13.10 4.2.7.2.686 [id number] [facility] 2022-01-29 00:00:00 2022-01-29 00:00:00 Case Management JeanieFacundoOsman L [facility] 1.840.114 350.1.13.10 4.2.7.2.686 [id number] [facility] 2022-01-19 13:56:18 2022-01-19 13:56:18 Outpatient SFA [facility] [id number] Delfino Orta 2022-01-19 00:00:00 2022-01-19 00:00:00 Outpatient Visit [id number] 1727-41cc -8650-544 09fx45l1x [id number] ue782777-1 727-41cc-8 650-69625d b58e4d 2022-01-19 00:00:00 2022-01-19 00:00:00 Orders Only Doctor Unassigned, [place] [facility] 1.2840.114 350.1.13.10 4.2.7.2.686 [id number] [facility] 2021-11-15 00:00:00 2021-11-15 00:00:00 Case Management Kasandra Flores [facility] 1..114 350.1.13.10 4.2.7.2.686 [id number] [facility] 2021-11-06 00:00:00 2021-11-06 00:00:00 Outpatient Visit [id number] 012e-4b99 -89ed-9b1 [id number] 12e-4b99-8 9ed-9b1c44 4516de 2021-10-10 09:30:00 2021-10-10 09:30:00 Outpatient R [facility] [id number] [facility] 2021-09-07 00:00:00 2021-09-07 00:00:00 Outpatient [facility] [id number] [place] [facility] 2021-08-25 03:29:00 2021-08-25 03:29:00 Outpatient Adams_R [facility] [id number] [facility] 2021-08-07 00:00:00 2021-08-07 00:00:00 Outpatient Visit jg27tgzr- 4q07-0rg8 -3ft8-y96 [id number] uh52sohg-8 e61-2kl3-9 cb5-d02d18 c4005d 2021-07-18 15:15:00 2021-07-18 16:23:57 Outpatient R APOLINAR WEBER [facility] [id number] [facility] 2021-07-18 15:15:00 2021-07-18 16:23:57 Office Visit Pgy2 Apolinar Weber L [facility] 1.840.114 350.1.13.10 4.2.7.2.686 [id number] [facility] 2021-07-18 15:15:00 2021-07-18 16:23:57 Outpatient R APOLINAR WEBER [facility] [id number] [facility] 2021-06-27 00:00:00 2021-06-27 00:00:00 Telephone Enedina Mccarty [facility] .840.114 350.1.13.10 4.2.7.2.686 [id number] [facility] 2021-06-15 00:00:00 2021-06-15 00:00:00 Transition of Care Lj Paredes 1..114 350.1.13.10 4.2.7.2.686 [id number] [facility] 2021-06-09 10:48:00 2021-06-14 17:22:00 Inpatient X BILLY VALERIO [facility] [id number] [facility] 2021-06-09 10:48:00 2021-06-14 17:22:00 [facility]114 350.1.13.10 4.2.7.2.686 [id number] [facility] 2021-06-12 00:00:00 2021-06-12 00:00:00 Case Management Evette Dunn [facility] 1.114 350.1.13.10 4.2.7.2.686 [id number] [facility] 2021-06-08 10:46:00 2021-06-08 16:28:00 Emergency X KENNEDI BLUE [facility] ERT [id number] [facility] 2021-06-08 10:46:00 2021-06-08 16:28:00 Emergency Emerypreston Kennedi G [facility] 1..114 350.1.13.10 4.2.7.2.686 [id number] [facility] 2021-05-24 00:00:00 2021-05-24 00:00:00 Letter (Out) Mikael Quiroz [facility] 1..114 350.1.13.10 4.2.7.2.686 [id number] [facility] 2021-05-23 00:00:00 2021-05-23 00:00:00 Orders Only Doctor Unassigned, [place] [facility] 1..114 350.1.13.10 4.2.7.2.686 [id number] [facility] 2021-05-16 09:00:00 2021-05-16 09:00:00 Outpatient Adams_R DMG [facility] [id number] [facility] 2021-05-01 11:30:00 2021-05-01 12:47:00 Emergency X LJ LIANG [facility] ERT [id number] [facility] 2021-05-01 11:30:00 2021-05-01 12:47:00 Emergency Lj Liang B [facility] 1..840.114 350.1.13.10 4.2.7.2.686 [id number] [facility] 2020-10-04 11:44:00 2020-10-04 12:54:00 Emergency X MARGARET NUNEZ [facility] ERT [id number] [facility] 2020-10-04 11:44:00 2020-10-04 12:54:00 Emergency Margaret Nunez [facility] 1.2.840.114 350.1.13.10 4.2.7.2.686 [id number] [facility] 2020-09-29 00:00:00 2020-09-29 00:00:00 Telephone [facility] 1..840.114 350.1.13.10 4.2.7.2.686 [id number] [facility] 2020-09-22 14:30:00 2020-09-22 14:30:00 Outpatient R BONNY MORRIS [facility] [id number] [facility] 2020-08-25 11:32:00 2020-08-25 11:32:00 Outpatient Adams_R DMJanel [facility] [id number] [facility] 2020-08-25 09:28:00 2020-08-25 10:21:00 Emergency Margaret Nunez [facility] 1.2.840.114 350.1.13.10 4.2.7.2.686 [id number] [facility] 2020-08-25 09:28:00 2020-08-25 10:21:00 Emergency X MARGARET NUNEZ [facility] ERT [id number] [facility] 2020-08-24 14:43:00 2020-08-24 15:59:00 Emergency Terri Elliott [facility] 1.2.840.114 350.1.13.10 4.2.7.2.686 [id number] [facility] 2020-08-24 14:43:00 2020-08-24 15:59:00 Emergency X [facility] ERT [id number] [facility] 2020-08-24 00:00:00 2020-08-24 00:00:00 Telephone Bonny MorrisHAg [facility] 1.2.840.114 350.1.13.10 4.2.7.2.686 [id number] [facility] 2020-08-12 15:00:00 2020-08-12 15:00:00 Outpatient R BONNY MORRIS [facility] [id number] [facility] 2020-08-12 00:00:00 2020-08-12 00:00:00 Telephone Bonny MorrisHAg [facility] 1.2.840.114 350.1.13.10 4.2.7.2.686 [id number] [facility] 2020-08-04 01:58:00 2020-08-04 01:58:00 [place] [id number] [facility] 2020-07-28 00:00:00 2020-07-28 00:00:00 Telephone Bonny Morris [facility] 1.2.840.114 350.1.13.10 4.2.7.2.686 [id number] [facility] 2020-07-28 00:00:00 2020-07-28 00:00:00 Orders Only Doctor Unassigned, [place] [facility] 1.2.840.114 350.1.13.10 4.2.7.2.686 [id number] [facility] 2020-07-27 00:00:00 2020-07-27 00:00:00 Telephone Bonny Morris [facility] 1.2.840.114 350.1.13.10 4.2.7.2.686 [id number] [facility] 2020-07-27 00:00:00 2020-07-27 00:00:00 Telephone Bonny Morris [facility] 1.2.840.114 350.1.13.10 4.2.7.2.686 [id number] [facility] 2020-07-26 14:25:36 2020-07-26 15:12:16 Office Visit Bonny Morris [facility] 1.2.840.114 350.1.13.10 4.2.7.2.686 [id number] [facility] 2020-07-26 14:30:00 2020-07-26 14:30:00 Outpatient R BONNY MORRIS [facility] [id number] [facility] 2020-07-20 10:25:00 2020-07-20 15:52:00 Emergency Dawn lBanco [facility] 1.2.840.114 350.1.13.10 4.2.7.2.686 [id number] [facility] 2020-07-20 10:16:00 2020-07-20 10:16:00 Emergency X [facility] ERT [id number] [facility] 2020-07-18 01:42:00 2020-07-18 01:42:00 [place] [id number] [facility] 2020-07-01 13:47:00 2020-07-01 16:34:00 Emergency IbJosse siddiqui [facility] 1.2.840.114 350.1.13.10 4.2.7.2.686 [id number] 084 [id number] [facility] 2020-07-01 13:47:00 2020-07-01 16:34:00 Emergency X JOSSE LOCKHART [facility] ERT [id number] [facility] 2020-07-01 13:47:00 2020-07-01 16:34:00 Emergency Josse Lockhart [facility] [id number] 350.1.13.10 4.2.7.2.686 [id number] [id number] Results Test Description Test Time Test Comments Results Result Co mments Source Delfino OrtaCOMPREHENSIVE METABOLIC [id number] 00:00:00* Test Item Value Reference Range Interpretation Comme nts GLUCOSE (test code = 2217) 83 MG/DL BUN (test code = 2208) 24 MG/DL CREATININE (test code = 2214) 1.32 MG/DL eGFR (2020 CKD-EPI) (test co de = 23609) 46 ML/MIN/1.73 CALC BUN/CREAT (test code = 2235) 18 RATIO SODIUM (test code = 2231) 140 MEQ/L POTASSIUM (test code = 2228) 4.4 MEQ/L CHLORIDE (test code = 2215) 108 MEQ/L CARBON DIOXIDE (test code = 2206) 19 MEQ/L CALCIUM (test code = 2209) 10.4 MG/DL PROTEIN, TOTAL (test code = 2229) 8.6 G/DL ALBUMIN (test code = 2201) 4.7 G/DL CALC GLOBULIN (test code = 2240) 3.9 G/DL CALC A/G RATIO (test code = 2234) 1.2 RATIO BILIRUBIN, TOTAL (test code = 2207) 0.3 MG/DL ALKALINE PHOSPHATASE (test code = 2204) 83 U/L AST (test code = 2218) 24 U/L ALT (test code = 2219) 13 U/L Delfino OrtaCD4/CD8 LYMPHOCYTE [id number] 00:00:00* Test Item Value Reference Range Interpretation Comme nts ABSOLUTE LYMPHOCYTES (test c ode = 26935) 877 PERUL PERCENT CD4 (test code = 66058) 22.4 % ABSOLUTE CD4 (test code = 39802) 196 PERUL PERCENT CD8 (test code = 63672) 58.8 % ABSOLUTE CD8 (test code = 50453) 515 PERUL CD4/CD8 RATIO (test code = 77835) 0.38 Delfino OrtaHIV-1 QUANT, [id number] 00:00:00* Test Item Value Reference Range Interpretation Comme carlito HIV-1 VIRAL COPY (test code = 4141) 619 COPIES/ML HIV-1 VIRAL LOG (test code = 02220) 2.792 LOGCOPIES/ML Delfino OrtaHEMOGLOBIN A1c [ADDED][id number] 00:00:00* Test Item Value Reference Range Interpretation Comme carlito HEMOGLOBIN A1c (test code = 29371) 5.6 % Delfino OrtaAUBREY, [id number] 09:15:45SPECIMEN NUMBER: [id number] CULTURE, URINE SPECIMEN NUMBER: [id number] SPECIMEN COMMENT: URINE SOURCE: URINE REPORT STATUS: FINAL FINAL REPORT: 08/30/2023 10-100,000 CFU/ML MIXED MICROBIAL POPULATION PRESENT, NO PREDOMINATING ORGANISMS;PROBABLE CONTAMINANTS. UNLESS OTHERWISE INDICATED, ALL TESTING PERFORMED AT [facility] [address] [place] [address] SALES AND CUSTOMER RELATIONS REP: ABBI SHORT M.D. CLIA NUMBER [id number] [place]. [id number], [id number] 00:00:00* Test Item Value Reference Range Interpretation Comme carlito CULTURE, URINE (test code = 13371) SPECIMEN NUMBER: [id number] Delfino SarmientoLTNIALL, [id number] 00:00:00* Test Item Value Reference Range Interpretation Comme nts CULTURE, URINE (test code = 64171) SPECIMEN NUMBER: [id number] Delfino OrtaHIV-1 INTEGRASE INHIBITOR [id number] 11:03:25* Test Item Value Reference Range Interpretation Comments BICTEGRAVIR (test code = 564867) Susceptible CABOTEGRAVIR (test code = 863389) Susceptible DOLUTEGRAVIR (test code = 96510) Susceptible ELVITEGRAVIR (test code = 31252) Susceptible RALTEGRAVIR (test code = 49675) Susceptible DRUG RESIST MUTATIONS (test code = 461417) INSTI (test code = 48763) None ACC RESIST MUTATIONS (test code = 568926) ACCESSORY MUT: (test code = 05573) None OTHER MUTATIONS (test code = 756144) INSTI (test code = 27333) SEE BELOW HIV-1 SUBTYPE (test code = 956810) B WALES HIVDB [place] (test code = 501076) HIVDB_9.6 Other Mutations (INSTI): S24G, A38R, L45S, M50I, L101I, S119T, T124A, T125A, G163E, D256E Mutation Comments: Other Mutations: Integrase Strand Transfer Inhibitor (INSTI): M50I is a highly polymorphic mutation, which has a prevalence of 3% to 34% in INSTI-naive persons depending on subtype. It has been selected in vitro by DTG and BIC in combination with R263K. It also appears to frequently occur in combination with R263K in patients receiving DTG and BIC. It is uncertain whether it contributes to reduced DTG and CAB susceptibility in combination with R263K. Resistance Definitions:Susceptible: no evidence of reduced antiretroviral (ARV)susceptibility compared to a wild-type virus. Potential low-level resistance: likely to be fully susceptible;however, contains mutations that may indicate previous ARV exposure. Low-level resistance: reduced ARV susceptibility in vitro and/orpatients may have a suboptimal virological response to treatmentwith the ARV. Intermediate resistance: a level of ARV resistance in between low-and high-level resistance. An ARV with intermediate resistanceshould generally be used only if the ARV has a high genetic barrierto resistance (e.g. some ritonavir-boosted inhibitors) or if fewother active drugs are available. High-level resistance: highest levels of in vitro drug resistanceand/or little or no virological response to treatment with the ARV. Methodology:Testing methodology is reverse manager compliance polymerase chainreaction (RT-PCR) and next-generation sequencing (NGS) of theintegrase (IN) region of the HIV-1 polymerase (carolynn) gene. HIV-1integrase inhibitor resistance mutations and associatedsusceptibility interpretations are assigned relative to the HIV-1subtype B consensus sequence utilizing the genotypic resistanceinterpretation algorithm of the [place] HIV Drug ResistanceDatabase (HIVDB). This test detects HIV-1 drug resistance mutations at a frequencyas low as 10%, which may account for differences in resistanceinterpretations between methods. Test results should be used andinterpreted in the context of clinical findings and other laboratorytest results. Disclaimer:This test was developed and its performance characteristicsdetermined by [facility] ([facility]). It has not beencleared or approved by the U.S. Food and Drug Administration (FDA).The FDA has determined that such clearance or approval is notnecessary. This test is used for clinical purposes and should not beregarded as investigational or for research. [facility] is qualified toperform high complexity testing under the Clinical LaboratoryImprovement Amendments (CLIA). TESTING PERFORMED AT [facility] [address] [place] [address], [facility] [address] [address] CLIA NO: [id number] UNLESS OTHERWISE INDICATED, ALL TESTING PERFORMED AT [facility] [address] [place] [address] SALES AND CUSTOMER RELATIONS REP: ABBI SHORT M.D. CLIA NUMBER [id number] [facility] [place]. [id number] HIV-1 INTEGRASE INHIBITOR [id number] 00:00:00* Test Item Value Reference Range Interpretation Comme nts BICTEGRAVIR (test code = 619364) Susceptible CABOTEGRAVIR (test code = 485384) Susceptible DOLUTEGRAVIR (test code = 97610) Susceptible ELVITEGRAVIR (test code = 67604) Susceptible RALTEGRAVIR (test code = 05817) Susceptible DRUG RESIST MUTATIONS (test code = 326759) INSTI (test code = 08851) None ACC RESIST MUTATIONS (test c ode = 444853) ACCESSORY MUT: (test code = 20104) None OTHER MUTATIONS (test code = 213193) INSTI (test code = 70488) SEE BELOW HIV-1 SUBTYPE (test code = 084880) B WALES HIVDB [place] (test cod e = 195658) HIVDB_9.6 Delfino Schumacher AustinHIV-1 INTEGRASE INHIBITOR [id number] 00:00:00* Test Item Value Reference Range Interpretation Comme nts BICTEGRAVIR (test code = 783985) Susceptible CABOTEGRAVIR (test code = 711930) Susceptible DOLUTEGRAVIR (test code = 46450) Susceptible ELVITEGRAVIR (test code = 90509) Susceptible RALTEGRAVIR (test code = 20017) Susceptible DRUG RESIST MUTATIONS (test code = 999543) INSTI (test code = 05622) None ACC RESIST MUTATIONS (test c ode = 963681) ACCESSORY MUT: (test code = 13876) None OTHER MUTATIONS (test code = 656754) INSTI (test code = 45826) SEE BELOW HIV-1 SUBTYPE (test code = 015101) B WALES HIVDB [place] (test cod e = 326838) HIVDB_9.6 Delfino Schumacher AustinHIV-1 INTEGRASE INHIBITOR [id number] 00:00:00* Test Item Value Reference Range Interpretation Comme nts BICTEGRAVIR (test code = 797391) Susceptible CABOTEGRAVIR (test code = 176424) Susceptible DOLUTEGRAVIR (test code = 13940) Susceptible ELVITEGRAVIR (test code = 67466) Susceptible RALTEGRAVIR (test code = 80228) Susceptible DRUG RESIST MUTATIONS (test code = 409995) INSTI (test code = 53889) None ACC RESIST MUTATIONS (test c ode = 581897) ACCESSORY MUT: (test code = 55538) None OTHER MUTATIONS (test code = 959151) INSTI (test code = 02469) SEE BELOW HIV-1 SUBTYPE (test code = 958469) B WALES HIVDB [place] (test cod e = 762684) HIVDB_9.6 Delfino Schumacher AustinHIV-1 INTEGRASE INHIBITOR [id number] 00:00:00* Test Item Value Reference Range Interpretation Comme nts BICTEGRAVIR (test code = 788154) Susceptible CABOTEGRAVIR (test code = 212332) Susceptible DOLUTEGRAVIR (test code = 03002) Susceptible ELVITEGRAVIR (test code = 77209) Susceptible RALTEGRAVIR (test code = 70652) Susceptible DRUG RESIST MUTATIONS (test code = 662220) INSTI (test code = 53151) None ACC RESIST MUTATIONS (test c ode = 970787) ACCESSORY MUT: (test code = 02454) None OTHER MUTATIONS (test code = 800736) INSTI (test code = 75620) SEE BELOW HIV-1 SUBTYPE (test code = 322454) B WALES HIVDB [place] (test cod e = 505316) HIVDB_9.6 Delfino OrtaHIV-1 INTEGRASE INHIBITOR [id number] 00:00:00* Test Item Value Reference Range Interpretation Comme nts BICTEGRAVIR (test code = 848995) Susceptible CABOTEGRAVIR (test code = 772963) Susceptible DOLUTEGRAVIR (test code = 89104) Susceptible ELVITEGRAVIR (test code = 53527) Susceptible RALTEGRAVIR (test code = 97938) Susceptible DRUG RESIST MUTATIONS (test code = 440925) INSTI (test code = 63690) None ACC RESIST MUTATIONS (test c ode = 873462) ACCESSORY MUT: (test code = 38625) None OTHER MUTATIONS (test code = 226003) INSTI (test code = 43699) SEE BELOW HIV-1 SUBTYPE (test code = 223302) B WALES HIVDB [place] (test cod e = 420245) HIVDB_9.6 Delfino Schumacher AustinHIV-1 INTEGRASE INHIBITOR [id number] 00:00:00* Test Item Value Reference Range Interpretation Comme nts BICTEGRAVIR (test code = 801766) Susceptible CABOTEGRAVIR (test code = 871280) Susceptible DOLUTEGRAVIR (test code = 78803) Susceptible ELVITEGRAVIR (test code = 61861) Susceptible RALTEGRAVIR (test code = 36972) Susceptible DRUG RESIST MUTATIONS (test code = 934927) INSTI (test code = 91325) None ACC RESIST MUTATIONS (test c ode = 102584) ACCESSORY MUT: (test code = 68844) None OTHER MUTATIONS (test code = 089390) INSTI (test code = 21771) SEE BELOW HIV-1 SUBTYPE (test code = 991353) B WALES HIVDB [place] (test cod e = 337535) HIVDB_9.6 Delfino Schumacher AustinHIV-1 INTEGRASE INHIBITOR [id number] 00:00:00* Test Item Value Reference Range Interpretation Comme nts BICTEGRAVIR (test code = 614609) Susceptible CABOTEGRAVIR (test code = 947153) Susceptible DOLUTEGRAVIR (test code = 85191) Susceptible ELVITEGRAVIR (test code = 06597) Susceptible RALTEGRAVIR (test code = 23956) Susceptible DRUG RESIST MUTATIONS (test code = 753841) INSTI (test code = 85607) None ACC RESIST MUTATIONS (test c ode = 240421) ACCESSORY MUT: (test code = 05476) None OTHER MUTATIONS (test code = 099033) INSTI (test code = 70396) SEE BELOW HIV-1 SUBTYPE (test code = 248814) B WALES HIVDB [place] (test cod e = 556794) HIVDB_9.6 Delfino Schumacher AustinCD4/CD8 LYMPHOCYTE [id number] 12:40:38* Test Item Value Reference Range Interpretation Comme nts ABSOLUTE LYMPHOCYTES (test code = 25486) 941 PER UL 8066-4146 L Specimen rec eived outside of temperature specifications. Resultsreviewed by Abbi Short M.D. PERCENT CD4 (test code = 59113) 16.3 % 34.0-65.0 L ABSOLUTE CD4 (test code = 08036) 154 PER UL 520-1470 L PERCENT CD8 (test code = 49869) 52.5 % 13.0-38.0 H ABSOLUTE CD8 (test code = 98987) 494 PER UL 205-920 CD4/CD8 RATIO (test code = 82114) 0.31 0.92-3.41 L CD4/CD8 LYMPHOCYTE [id number] 00:00:00* Test Item Value Reference Range Interpretation Comme nts ABSOLUTE LYMPHOCYTES (test c ode = 66540) 941 PERUL PERCENT CD4 (test code = 16515) 16.3 % ABSOLUTE CD4 (test code = 78123) 154 PERUL PERCENT CD8 (test code = 55189) 52.5 % ABSOLUTE CD8 (test code = 89213) 494 PERUL CD4/CD8 RATIO (test code = 49017) 0.31 Delfino Schumacher AustinCD4/CD8 LYMPHOCYTE [id number] 00:00:00* Test Item Value Reference Range Interpretation Comme nts ABSOLUTE LYMPHOCYTES (test c ode = 97190) 941 PERUL PERCENT CD4 (test code = 48765) 16.3 % ABSOLUTE CD4 (test code = 85841) 154 PERUL PERCENT CD8 (test code = 13098) 52.5 % ABSOLUTE CD8 (test code = 98574) 494 PERUL CD4/CD8 RATIO (test code = 51325) 0.31 Delfino Schumacher AustinCD4/CD8 LYMPHOCYTE [id number] 00:00:00* Test Item Value Reference Range Interpretation Comme nts ABSOLUTE LYMPHOCYTES (test c ode = 89956) 941 PERUL PERCENT CD4 (test code = 90978) 16.3 % ABSOLUTE CD4 (test code = 65591) 154 PERUL PERCENT CD8 (test code = 48113) 52.5 % ABSOLUTE CD8 (test code = 79168) 494 PERUL CD4/CD8 RATIO (test code = 11615) 0.31 Delfino Schumacher AustinCD4/CD8 LYMPHOCYTE [id number] 00:00:00* Test Item Value Reference Range Interpretation Comme nts ABSOLUTE LYMPHOCYTES (test c ode = 99149) 941 PERUL PERCENT CD4 (test code = 60560) 16.3 % ABSOLUTE CD4 (test code = 49802) 154 PERUL PERCENT CD8 (test code = 55790) 52.5 % ABSOLUTE CD8 (test code = 41972) 494 PERUL CD4/CD8 RATIO (test code = 66822) 0.31 Delfino Schumacher AustinCD4/CD8 LYMPHOCYTE [id number] 00:00:00* Test Item Value Reference Range Interpretation Comme nts ABSOLUTE LYMPHOCYTES (test c ode = 52638) 941 PERUL PERCENT CD4 (test code = 55524) 16.3 % ABSOLUTE CD4 (test code = 78384) 154 PERUL PERCENT CD8 (test code = 93385) 52.5 % ABSOLUTE CD8 (test code = 44965) 494 PERUL CD4/CD8 RATIO (test code = 59475) 0.31 Delfino Schumacher AustinCD4/CD8 LYMPHOCYTE [id number] 00:00:00* Test Item Value Reference Range Interpretation Comme nts ABSOLUTE LYMPHOCYTES (test c ode = 18194) 941 PERUL PERCENT CD4 (test code = 90969) 16.3 % ABSOLUTE CD4 (test code = 13135) 154 PERUL PERCENT CD8 (test code = 89043) 52.5 % ABSOLUTE CD8 (test code = 45986) 494 PERUL CD4/CD8 RATIO (test code = 77686) 0.31 Delfino Schumacher AustinCD4/CD8 LYMPHOCYTE [id number] 00:00:00* Test Item Value Reference Range Interpretation Comme nts ABSOLUTE LYMPHOCYTES (test c ode = 86760) 941 PERUL PERCENT CD4 (test code = 33170) 16.3 % ABSOLUTE CD4 (test code = 81505) 154 PERUL PERCENT CD8 (test code = 50088) 52.5 % ABSOLUTE CD8 (test code = 67532) 494 PERUL CD4/CD8 RATIO (test code = 44769) 0.31 Delfino Schumacher YouCBC W/AUTO DIFF WITH [id number] 11:40:06* Test Item Value Reference Range Interpretation Comme nts WBC (test code = 1001) 2.2 K/UL 3.5-11.0 L RBC (test code = 1002) 4.05 M/UL 3.80-5.40 HEMOGLOBIN (test code = 1003) 14.5 G/DL 11.5-15.5 HEMATOCRIT (test code = 1004) 43.5 % 34.0-45.0 MCV (test code = 1005) 107.4 fL 80.0-99.0 H MCH (test code = 1006) 35.8 PG 25.0-33.0 H MCHC (test code = 1007) 33.3 G/DL 31.0-36.0 RDW (test code = 1038) 12.9 % 11.5-15.0 NEUTROPHILS (test code = 1008) 28.6 % AUTOMATED DIFFERENTIAL CONFIRMED WITH MANUAL SLIDE REVIEW. LYMPHOCYTES (test code = 1010) 50.2 % MONOCYTES (test code = 1011) 18.9 % EOSINOPHILS (test code = 1012) 0.9 % BASOPHILS (test code = 1013) 0.9 % IMMATURE GRANULOCYTES (test code = 1036) 0.5 % NUCLEATED RBCS (test code = 1065) 0.0 /100 WBC'S See_Comment [Automated message] The system which generated this result transmitted reference range: 0.0. The reference range was not used to interpret this result as normal/abnormal. PLATELET COUNT (test code = 1015) 146 K/UL 130-400 ABSOLUTE NEUTROPHILS (test code = 1066) 0.62 K/UL 1.50-7.50 L ABSOLUTE LYMPHOCYTES (test code = 1067) 1.09 K/UL 1.00-4.00 ABSOLUTE MONOCYTES (test code = 1068) 0.41 K/UL 0.20-1.00 ABSOLUTE EOSINOPHILS (test code = 1040) 0.02 K/UL 0.00-0.50 ABSOLUTE BASOPHILS (test code = 1069) 0.02 K/UL 0.00-0.20 ABS IMMATURE GRANULOCYTES (test code = 1020) 0.01 K/UL 0.00-0.10 ABS NUCLEATED RBCS (test code = 03018) 0.00 K/UL 0.00-0.11 COMMENTS (test code = 1016) (NOTE) MODERATE MACROCY TOSIS SLIGHT TOXIC GRANULATION PLATELETS APPEAR NORMAL SEE ADDITIONAL COMMENTS BELOW: SLIGHT VACUOLIZATION OF NEUTROPHILS COMPREHENSIVE METABOLIC [id number] 05:24:56* Test Item Value Reference Range Interpretation Comme nts GLUCOSE (test code = 2217) 90 MG/DL 70-99 BUN (test code = 220) 40 MG/DL 8-23 H CREATININE (test code = 2214) 2.05 MG/DL 0.60-1.30 H eGFR (2020 CKD-EPI) (test co de = 16591) 27 ML/MIN/1.73 >60 L CALC BUN/CREAT (test code = 2235) 20 RATIO 6-28 SODIUM (test code = 223) 144 MEQ/L 133-146 POTASSIUM (test code = 2228) 3.5 MEQ/L 3.5-5.4 CHLORIDE (test code = 2215) 110 MEQ/L 95-107 H CARBON DIOXIDE (test code = 2206) 18 MEQ/L 19-31 L CALCIUM (test code = 2209) 10.2 MG/DL 8.5-10.5 PROTEIN, TOTAL (test code = 2229) 8.5 G/DL 6.1-8.3 H ALBUMIN (test code = 2201) 4.5 G/DL 3.5-5.2 CALC GLOBULIN (test code = 2240) 4.0 G/DL 1.9-3.7 H CALC A/G RATIO (test code = 2234) 1.1 RATIO 1.0-2.6 BILIRUBIN, TOTAL (test code = 2207) 0.3 MG/DL <=1.2 ALKALINE PHOSPHATASE (test code = 2204) 96 U/L 40-136 AST (test code = 2218) 28 U/L 9-40 ALT (test code = 2219) 16 U/L 5-40 LIPID [id number] 05:24:56* Test Item Value Reference Range Interpretation Comme nts CHOLESTEROL (test code = 2210) 212 MG/DL <200 H TRIGLYCERIDES (test code = 2232) 80 MG/DL <150 HDL CHOLESTEROL (test code = 2220) 102 MG/DL >39 CALC LDL CHOL (test code = 2237) 93 MG/DL <100 NOTE: CALCULATED LDL IS BASED ON CLOTILDE-STARKEY METHOD WHICHINCLUDES ADJUSTABLE TRIGLYCERIDE:VLDL CHOLESTEROL RATIO.THIS FACTOR VARIES BY MEASURED TRIGLYCERIDE AND NON-HDLCHOLESTEROL CONCENTRATIONS WITH INCREASED CALCULATED LDL SEENIN HIGHER TRIGLYCERIDE OR LOWER NON-HDL SPECIMENS. FOR MOREINFORMATION, SEE CLIENT ANNOUNCEMENT AT [email or web address] RISK RATIO LDL/HDL (test code = 2238) 0.91 RATIO <3.22 LIPID [id number] 00:00:00* Test Item Value Reference Range Interpretation Comme nts CHOLESTEROL (test code = 2210) 212 MG/DL TRIGLYCERIDES (test code = 2232) 80 MG/DL HDL CHOLESTEROL (test code = 2220) 102 MG/DL CALC LDL CHOL (test code = 2237) 93 MG/DL RISK RATIO LDL/HDL (test cod e = 2238) 0.91 RATIO Delfino OrtaC W/AUTO [id number] 00:00:00* Test Item Value Reference Range Interpretation Comme nts WBC (test code = 1001) 2.2 K/UL RBC (test code = 1002) 4.05 M/UL HEMOGLOBIN (test code = 1003) 14.5 G/DL HEMATOCRIT (test code = 1004) 43.5 % MCV (test code = 1005) 107.4 fL MCH (test code = 1006) 35.8 PG MCHC (test code = 1007) 33.3 G/DL RDW (test code = 1038) 12.9 % NEUTROPHILS (test code = 1008) 28.6 % LYMPHOCYTES (test code = 1010) 50.2 % MONOCYTES (test code = 1011) 18.9 % EOSINOPHILS (test code = 1012) 0.9 % BASOPHILS (test code = 1013) 0.9 % IMMATURE GRANULOCYTES (test code = 1036) 0.5 % NUCLEATED RBCS (test code = 1065) 0.0 /100WBC'S PLATELET COUNT (test code = 1015) 146 K/UL ABSOLUTE NEUTROPHILS (test c ode = 1066) 0.62 K/UL ABSOLUTE LYMPHOCYTES (test c ode = 1067) 1.09 K/UL ABSOLUTE MONOCYTES (test cod e = 1068) 0.41 K/UL ABSOLUTE EOSINOPHILS (test c ode = 1040) 0.02 K/UL ABSOLUTE BASOPHILS (test cod e = 1069) 0.02 K/UL ABS IMMATURE GRANULOCYTES (t est code = 1020) 0.01 K/UL ABS NUCLEATED RBCS (test cod e = 80527) 0.00 K/UL COMMENTS (test code = 1016) (NOTE) Delfino OrtaCOMPREHENSIVE METABOLIC [id number] 00:00:00* Test Item Value Reference Range Interpretation Comme nts GLUCOSE (test code = 2217) 90 MG/DL BUN (test code = 2208) 40 MG/DL CREATININE (test code = 2214) 2.05 MG/DL eGFR (2020 CKD-EPI) (test co de = 85466) 27 ML/MIN/1.73 CALC BUN/CREAT (test code = 2235) 20 RATIO SODIUM (test code = 2231) 144 MEQ/L POTASSIUM (test code = 2228) 3.5 MEQ/L CHLORIDE (test code = 2215) 110 MEQ/L CARBON DIOXIDE (test code = 2206) 18 MEQ/L CALCIUM (test code = 2209) 10.2 MG/DL PROTEIN, TOTAL (test code = 2229) 8.5 G/DL ALBUMIN (test code = 2201) 4.5 G/DL CALC GLOBULIN (test code = 2240) 4.0 G/DL CALC A/G RATIO (test code = 2234) 1.1 RATIO BILIRUBIN, TOTAL (test code = 2207) 0.3 MG/DL ALKALINE PHOSPHATASE (test code = 2204) 96 U/L AST (test code = 2218) 28 U/L ALT (test code = 2219) 16 U/L Delfino OrtaLIPID [id number] 00:00:00* Test Item Value Reference Range Interpretation Comme nts CHOLESTEROL (test code = 2210) 212 MG/DL TRIGLYCERIDES (test code = 2232) 80 MG/DL HDL CHOLESTEROL (test code = 2220) 102 MG/DL CALC LDL CHOL (test code = 2237) 93 MG/DL RISK RATIO LDL/HDL (test cod e = 2238) 0.91 RATIO Delfino OrtaCBC W/AUTO [id number] 00:00:00* Test Item Value Reference Range Interpretation Comme nts WBC (test code = 1001) 2.2 K/UL RBC (test code = 1002) 4.05 M/UL HEMOGLOBIN (test code = 1003) 14.5 G/DL HEMATOCRIT (test code = 1004) 43.5 % MCV (test code = 1005) 107.4 fL MCH (test code = 1006) 35.8 PG MCHC (test code = 1007) 33.3 G/DL RDW (test code = 1038) 12.9 % NEUTROPHILS (test code = 1008) 28.6 % LYMPHOCYTES (test code = 1010) 50.2 % MONOCYTES (test code = 1011) 18.9 % EOSINOPHILS (test code = 1012) 0.9 % BASOPHILS (test code = 1013) 0.9 % IMMATURE GRANULOCYTES (test code = 1036) 0.5 % NUCLEATED RBCS (test code = 1065) 0.0 /100WBC'S PLATELET COUNT (test code = 1015) 146 K/UL ABSOLUTE NEUTROPHILS (test c ode = 1066) 0.62 K/UL ABSOLUTE LYMPHOCYTES (test c ode = 1067) 1.09 K/UL ABSOLUTE MONOCYTES (test cod e = 1068) 0.41 K/UL ABSOLUTE EOSINOPHILS (test c ode = 1040) 0.02 K/UL ABSOLUTE BASOPHILS (test cod e = 1069) 0.02 K/UL ABS IMMATURE GRANULOCYTES (t est code = 1020) 0.01 K/UL ABS NUCLEATED RBCS (test cod e = 87784) 0.00 K/UL COMMENTS (test code = 1016) (NOTE) Delfino OrtaCOMPREHENSIVE METABOLIC [id number] 00:00:00* Test Item Value Reference Range Interpretation Comme nts GLUCOSE (test code = 2217) 90 MG/DL BUN (test code = 2208) 40 MG/DL CREATININE (test code = 2214) 2.05 MG/DL eGFR (2020 CKD-EPI) (test co de = 34116) 27 ML/MIN/1.73 CALC BUN/CREAT (test code = 2235) 20 RATIO SODIUM (test code = 2231) 144 MEQ/L POTASSIUM (test code = 2228) 3.5 MEQ/L CHLORIDE (test code = 2215) 110 MEQ/L CARBON DIOXIDE (test code = 2206) 18 MEQ/L CALCIUM (test code = 2209) 10.2 MG/DL PROTEIN, TOTAL (test code = 2229) 8.5 G/DL ALBUMIN (test code = 2201) 4.5 G/DL CALC GLOBULIN (test code = 2240) 4.0 G/DL CALC A/G RATIO (test code = 2234) 1.1 RATIO BILIRUBIN, TOTAL (test code = 2207) 0.3 MG/DL ALKALINE PHOSPHATASE (test code = 2204) 96 U/L AST (test code = 2218) 28 U/L ALT (test code = 2219) 16 U/L Delfino OrtaLIPID [id number] 00:00:00* Test Item Value Reference Range Interpretation Comme nts CHOLESTEROL (test code = 2210) 212 MG/DL TRIGLYCERIDES (test code = 2232) 80 MG/DL HDL CHOLESTEROL (test code = 2220) 102 MG/DL CALC LDL CHOL (test code = 2237) 93 MG/DL RISK RATIO LDL/HDL (test cod e = 2238) 0.91 RATIO Delfino OrtaCBC W/AUTO [id number] 00:00:00* Test Item Value Reference Range Interpretation Comme nts WBC (test code = 1001) 2.2 K/UL RBC (test code = 1002) 4.05 M/UL HEMOGLOBIN (test code = 1003) 14.5 G/DL HEMATOCRIT (test code = 1004) 43.5 % MCV (test code = 1005) 107.4 fL MCH (test code = 1006) 35.8 PG MCHC (test code = 1007) 33.3 G/DL RDW (test code = 1038) 12.9 % NEUTROPHILS (test code = 1008) 28.6 % LYMPHOCYTES (test code = 1010) 50.2 % MONOCYTES (test code = 1011) 18.9 % EOSINOPHILS (test code = 1012) 0.9 % BASOPHILS (test code = 1013) 0.9 % IMMATURE GRANULOCYTES (test code = 1036) 0.5 % NUCLEATED RBCS (test code = 1065) 0.0 /100WBC'S PLATELET COUNT (test code = 1015) 146 K/UL ABSOLUTE NEUTROPHILS (test c ode = 1066) 0.62 K/UL ABSOLUTE LYMPHOCYTES (test c ode = 1067) 1.09 K/UL ABSOLUTE MONOCYTES (test cod e = 1068) 0.41 K/UL ABSOLUTE EOSINOPHILS (test c ode = 1040) 0.02 K/UL ABSOLUTE BASOPHILS (test cod e = 1069) 0.02 K/UL ABS IMMATURE GRANULOCYTES (t est code = 1020) 0.01 K/UL ABS NUCLEATED RBCS (test cod e = 81428) 0.00 K/UL COMMENTS (test code = 1016) (NOTE) Delfino OrtaCOMPREHENSIVE METABOLIC [id number] 00:00:00* Test Item Value Reference Range Interpretation Comme nts GLUCOSE (test code = 2217) 90 MG/DL BUN (test code = 2208) 40 MG/DL CREATININE (test code = 2214) 2.05 MG/DL eGFR (2020 CKD-EPI) (test co de = 07601) 27 ML/MIN/1.73 CALC BUN/CREAT (test code = 2235) 20 RATIO SODIUM (test code = 2231) 144 MEQ/L POTASSIUM (test code = 2228) 3.5 MEQ/L CHLORIDE (test code = 2215) 110 MEQ/L CARBON DIOXIDE (test code = 2206) 18 MEQ/L CALCIUM (test code = 2209) 10.2 MG/DL PROTEIN, TOTAL (test code = 2229) 8.5 G/DL ALBUMIN (test code = 2201) 4.5 G/DL CALC GLOBULIN (test code = 2240) 4.0 G/DL CALC A/G RATIO (test code = 2234) 1.1 RATIO BILIRUBIN, TOTAL (test code = 2207) 0.3 MG/DL ALKALINE PHOSPHATASE (test code = 2204) 96 U/L AST (test code = 2218) 28 U/L ALT (test code = 2219) 16 U/L Delfino OrtaLIPID [id number] 00:00:00* Test Item Value Reference Range Interpretation Comme nts CHOLESTEROL (test code = 2210) 212 MG/DL TRIGLYCERIDES (test code = 2232) 80 MG/DL HDL CHOLESTEROL (test code = 2220) 102 MG/DL CALC LDL CHOL (test code = 2237) 93 MG/DL RISK RATIO LDL/HDL (test cod e = 2238) 0.91 RATIO Delfino Schumacher YouCBC W/AUTO [id number] 00:00:00* Test Item Value Reference Range Interpretation Comme nts WBC (test code = 1001) 2.2 K/UL RBC (test code = 1002) 4.05 M/UL HEMOGLOBIN (test code = 1003) 14.5 G/DL HEMATOCRIT (test code = 1004) 43.5 % MCV (test code = 1005) 107.4 fL MCH (test code = 1006) 35.8 PG MCHC (test code = 1007) 33.3 G/DL RDW (test code = 1038) 12.9 % NEUTROPHILS (test code = 1008) 28.6 % LYMPHOCYTES (test code = 1010) 50.2 % MONOCYTES (test code = 1011) 18.9 % EOSINOPHILS (test code = 1012) 0.9 % BASOPHILS (test code = 1013) 0.9 % IMMATURE GRANULOCYTES (test code = 1036) 0.5 % NUCLEATED RBCS (test code = 1065) 0.0 /100WBC'S PLATELET COUNT (test code = 1015) 146 K/UL ABSOLUTE NEUTROPHILS (test c ode = 1066) 0.62 K/UL ABSOLUTE LYMPHOCYTES (test c ode = 1067) 1.09 K/UL ABSOLUTE MONOCYTES (test cod e = 1068) 0.41 K/UL ABSOLUTE EOSINOPHILS (test c ode = 1040) 0.02 K/UL ABSOLUTE BASOPHILS (test cod e = 1069) 0.02 K/UL ABS IMMATURE GRANULOCYTES (t est code = 1020) 0.01 K/UL ABS NUCLEATED RBCS (test cod e = 11485) 0.00 K/UL COMMENTS (test code = 1016) (NOTE) Delfino OrtaCOMPREHENSIVE METABOLIC [id number] 00:00:00* Test Item Value Reference Range Interpretation Comme nts GLUCOSE (test code = 2217) 90 MG/DL BUN (test code = 2208) 40 MG/DL CREATININE (test code = 2214) 2.05 MG/DL eGFR (2020 CKD-EPI) (test co de = 65195) 27 ML/MIN/1.73 CALC BUN/CREAT (test code = 2235) 20 RATIO SODIUM (test code = 2231) 144 MEQ/L POTASSIUM (test code = 2228) 3.5 MEQ/L CHLORIDE (test code = 2215) 110 MEQ/L CARBON DIOXIDE (test code = 2206) 18 MEQ/L CALCIUM (test code = 2209) 10.2 MG/DL PROTEIN, TOTAL (test code = 2229) 8.5 G/DL ALBUMIN (test code = 2201) 4.5 G/DL CALC GLOBULIN (test code = 2240) 4.0 G/DL CALC A/G RATIO (test code = 2234) 1.1 RATIO BILIRUBIN, TOTAL (test code = 2207) 0.3 MG/DL ALKALINE PHOSPHATASE (test code = 2204) 96 U/L AST (test code = 2218) 28 U/L ALT (test code = 2219) 16 U/L Delfino OrtaLIPID [id number] 00:00:00* Test Item Value Reference Range Interpretation Comme nts CHOLESTEROL (test code = 2210) 212 MG/DL TRIGLYCERIDES (test code = 2232) 80 MG/DL HDL CHOLESTEROL (test code = 2220) 102 MG/DL CALC LDL CHOL (test code = 2237) 93 MG/DL RISK RATIO LDL/HDL (test cod e = 2238) 0.91 RATIO Delfino OrtaCBC W/AUTO [id number] 00:00:00* Test Item Value Reference Range Interpretation Comme nts WBC (test code = 1001) 2.2 K/UL RBC (test code = 1002) 4.05 M/UL HEMOGLOBIN (test code = 1003) 14.5 G/DL HEMATOCRIT (test code = 1004) 43.5 % MCV (test code = 1005) 107.4 fL MCH (test code = 1006) 35.8 PG MCHC (test code = 1007) 33.3 G/DL RDW (test code = 1038) 12.9 % NEUTROPHILS (test code = 1008) 28.6 % LYMPHOCYTES (test code = 1010) 50.2 % MONOCYTES (test code = 1011) 18.9 % EOSINOPHILS (test code = 1012) 0.9 % BASOPHILS (test code = 1013) 0.9 % IMMATURE GRANULOCYTES (test code = 1036) 0.5 % NUCLEATED RBCS (test code = 1065) 0.0 /100WBC'S PLATELET COUNT (test code = 1015) 146 K/UL ABSOLUTE NEUTROPHILS (test c ode = 1066) 0.62 K/UL ABSOLUTE LYMPHOCYTES (test c ode = 1067) 1.09 K/UL ABSOLUTE MONOCYTES (test cod e = 1068) 0.41 K/UL ABSOLUTE EOSINOPHILS (test c ode = 1040) 0.02 K/UL ABSOLUTE BASOPHILS (test cod e = 1069) 0.02 K/UL ABS IMMATURE GRANULOCYTES (t est code = 1020) 0.01 K/UL ABS NUCLEATED RBCS (test cod e = 53251) 0.00 K/UL COMMENTS (test code = 1016) (NOTE) Delfino OrtaCOMPREHENSIVE METABOLIC [id number] 00:00:00* Test Item Value Reference Range Interpretation Comme nts GLUCOSE (test code = 2217) 90 MG/DL BUN (test code = 2208) 40 MG/DL CREATININE (test code = 2214) 2.05 MG/DL eGFR (2020 CKD-EPI) (test co de = 90818) 27 ML/MIN/1.73 CALC BUN/CREAT (test code = 2235) 20 RATIO SODIUM (test code = 2231) 144 MEQ/L POTASSIUM (test code = 2228) 3.5 MEQ/L CHLORIDE (test code = 2215) 110 MEQ/L CARBON DIOXIDE (test code = 2206) 18 MEQ/L CALCIUM (test code = 2209) 10.2 MG/DL PROTEIN, TOTAL (test code = 2229) 8.5 G/DL ALBUMIN (test code = 2201) 4.5 G/DL CALC GLOBULIN (test code = 2240) 4.0 G/DL CALC A/G RATIO (test code = 2234) 1.1 RATIO BILIRUBIN, TOTAL (test code = 2207) 0.3 MG/DL ALKALINE PHOSPHATASE (test code = 2204) 96 U/L AST (test code = 2218) 28 U/L ALT (test code = 2219) 16 U/L Delfino OrtaLIPID [id number] 00:00:00* Test Item Value Reference Range Interpretation Comme nts CHOLESTEROL (test code = 2210) 212 MG/DL TRIGLYCERIDES (test code = 2232) 80 MG/DL HDL CHOLESTEROL (test code = 2220) 102 MG/DL CALC LDL CHOL (test code = 2237) 93 MG/DL RISK RATIO LDL/HDL (test cod e = 2238) 0.91 RATIO Delfino OrtaCBC W/AUTO [id number] 00:00:00* Test Item Value Reference Range Interpretation Comme nts WBC (test code = 1001) 2.2 K/UL RBC (test code = 1002) 4.05 M/UL HEMOGLOBIN (test code = 1003) 14.5 G/DL HEMATOCRIT (test code = 1004) 43.5 % MCV (test code = 1005) 107.4 fL MCH (test code = 1006) 35.8 PG MCHC (test code = 1007) 33.3 G/DL RDW (test code = 1038) 12.9 % NEUTROPHILS (test code = 1008) 28.6 % LYMPHOCYTES (test code = 1010) 50.2 % MONOCYTES (test code = 1011) 18.9 % EOSINOPHILS (test code = 1012) 0.9 % BASOPHILS (test code = 1013) 0.9 % IMMATURE GRANULOCYTES (test code = 1036) 0.5 % NUCLEATED RBCS (test code = 1065) 0.0 /100WBC'S PLATELET COUNT (test code = 1015) 146 K/UL ABSOLUTE NEUTROPHILS (test c ode = 1066) 0.62 K/UL ABSOLUTE LYMPHOCYTES (test c ode = 1067) 1.09 K/UL ABSOLUTE MONOCYTES (test cod e = 1068) 0.41 K/UL ABSOLUTE EOSINOPHILS (test c ode = 1040) 0.02 K/UL ABSOLUTE BASOPHILS (test cod e = 1069) 0.02 K/UL ABS IMMATURE GRANULOCYTES (t est code = 1020) 0.01 K/UL ABS NUCLEATED RBCS (test cod e = 23070) 0.00 K/UL COMMENTS (test code = 1016) (NOTE) Delfino OrtaCOMPREHENSIVE METABOLIC [id number] 00:00:00* Test Item Value Reference Range Interpretation Comme nts GLUCOSE (test code = 2217) 90 MG/DL BUN (test code = 2208) 40 MG/DL CREATININE (test code = 2214) 2.05 MG/DL eGFR (2020 CKD-EPI) (test co de = 71108) 27 ML/MIN/1.73 CALC BUN/CREAT (test code = 2235) 20 RATIO SODIUM (test code = 2231) 144 MEQ/L POTASSIUM (test code = 2228) 3.5 MEQ/L CHLORIDE (test code = 2215) 110 MEQ/L CARBON DIOXIDE (test code = 2206) 18 MEQ/L CALCIUM (test code = 2209) 10.2 MG/DL PROTEIN, TOTAL (test code = 2229) 8.5 G/DL ALBUMIN (test code = 2201) 4.5 G/DL CALC GLOBULIN (test code = 2240) 4.0 G/DL CALC A/G RATIO (test code = 2234) 1.1 RATIO BILIRUBIN, TOTAL (test code = 2207) 0.3 MG/DL ALKALINE PHOSPHATASE (test code = 2204) 96 U/L AST (test code = 2218) 28 U/L ALT (test code = 2219) 16 U/L Delfino OrtaLIPID [id number] 00:00:00* Test Item Value Reference Range Interpretation Comme nts CHOLESTEROL (test code = 2210) 212 MG/DL TRIGLYCERIDES (test code = 2232) 80 MG/DL HDL CHOLESTEROL (test code = 2220) 102 MG/DL CALC LDL CHOL (test code = 2237) 93 MG/DL RISK RATIO LDL/HDL (test cod e = 2238) 0.91 RATIO Delfino OrtaCBC W/AUTO [id number] 00:00:00* Test Item Value Reference Range Interpretation Comme nts WBC (test code = 1001) 2.2 K/UL RBC (test code = 1002) 4.05 M/UL HEMOGLOBIN (test code = 1003) 14.5 G/DL HEMATOCRIT (test code = 1004) 43.5 % MCV (test code = 1005) 107.4 fL MCH (test code = 1006) 35.8 PG MCHC (test code = 1007) 33.3 G/DL RDW (test code = 1038) 12.9 % NEUTROPHILS (test code = 1008) 28.6 % LYMPHOCYTES (test code = 1010) 50.2 % MONOCYTES (test code = 1011) 18.9 % EOSINOPHILS (test code = 1012) 0.9 % BASOPHILS (test code = 1013) 0.9 % IMMATURE GRANULOCYTES (test code = 1036) 0.5 % NUCLEATED RBCS (test code = 1065) 0.0 /100WBC'S PLATELET COUNT (test code = 1015) 146 K/UL ABSOLUTE NEUTROPHILS (test c ode = 1066) 0.62 K/UL ABSOLUTE LYMPHOCYTES (test c ode = 1067) 1.09 K/UL ABSOLUTE MONOCYTES (test cod e = 1068) 0.41 K/UL ABSOLUTE EOSINOPHILS (test c ode = 1040) 0.02 K/UL ABSOLUTE BASOPHILS (test cod e = 1069) 0.02 K/UL ABS IMMATURE GRANULOCYTES (t est code = 1020) 0.01 K/UL ABS NUCLEATED RBCS (test cod e = 47576) 0.00 K/UL COMMENTS (test code = 1016) (NOTE) Delfino OrtaCOMPREHENSIVE METABOLIC [id number] 00:00:00* Test Item Value Reference Range Interpretation Comme nts GLUCOSE (test code = 2217) 90 MG/DL BUN (test code = 2208) 40 MG/DL CREATININE (test code = 2214) 2.05 MG/DL eGFR (2020 CKD-EPI) (test co de = 88066) 27 ML/MIN/1.73 CALC BUN/CREAT (test code = 2235) 20 RATIO SODIUM (test code = 2231) 144 MEQ/L POTASSIUM (test code = 2228) 3.5 MEQ/L CHLORIDE (test code = 2215) 110 MEQ/L CARBON DIOXIDE (test code = 2206) 18 MEQ/L CALCIUM (test code = 2209) 10.2 MG/DL PROTEIN, TOTAL (test code = 2229) 8.5 G/DL ALBUMIN (test code = 2201) 4.5 G/DL CALC GLOBULIN (test code = 2240) 4.0 G/DL CALC A/G RATIO (test code = 2234) 1.1 RATIO BILIRUBIN, TOTAL (test code = 2207) 0.3 MG/DL ALKALINE PHOSPHATASE (test code = 2204) 96 U/L AST (test code = 2218) 28 U/L ALT (test code = 2219) 16 U/L [facility] [id number] 19:43:14* Test Item Value Reference Range Interpretation Comme nts WBC (test code = 6690-2) 7.67 4.30-11.10 RBC (test code = 789-8) 3.40 3.93-5.25 L HGB (test code = 718-7) 12.5 g/dL 11.6-15.0 HCT (test code = 4544-3) 37.2 % 35.7-45.2 MCV (test code = 787-2) 109.4 fL 80.6-95.5 H MCH (test code = 785-6) 36.8 pg 25.9-32.8 H MCHC (test code = 786-4) 33.6 g/dL 31.6-35.1 RDW-SD (test code = 23661-5) 54.3 fL 39.0-49.9 H RDW-CV (test code = 788-0) 13.4 % 12.0-15.5 PLT (test code = 777-3) 133 166-358 L MPV (test code = 72675-7) 11.5 fL 9.5-12.9 IPF % (test code = 2870329906) 5.6 % 1.3-7.7 Platelet count measured by fluorescence method. NRBC/100 WBC (test code = 7133554794) 0.0 0.0-10.0 NRBC x10^3 (test code = 8228924643) See_Comment [Automated messa ge] The system which generated this result transmitted reference range: 10*3/?L. The reference range was not used to interpret this result as normal/abnormal. GRAN MAT (NEUT) % (test code = 770-8) 91.9 % IMM GRAN % (test code = 5350008085) 0.30 % LYMPH % (test code = 736-9) 5.6 % MONO % (test code = 5905-5) 2.1 % EOS % (test code = 713-8) 0.0 % BASO % (test code = 706-2) 0.1 % GRAN MAT x10^3(ANC) (test code = 9134328626) 7.05 10*3/uL 1.88-7.09 IMM GRAN x10^3 (test code = 4436591537) 0.00-0.06 LYMPH x10^3 (test code = 731-0) 0.43 10*3/uL 1.32-3.29 L MONO x10^3 (test code = 742-7) 0.16 10*3/uL 0.33-0.92 L EOS x10^3 (test code = 711-2) 0.03-0.39 L BASO x10^3 (test code = 704-7) 0.01-0.07 Lab Interpretation (test code = 35712-7) [id number] 19:32:09* Test Item Value Reference Range Interpretation Comme nts NA (test code = 6988747842) 139 mmol/L 135-145 K (test code = 9189522148) 3.9 mmol/L 3.5-5.0 CL (test code = 9404269002) 115 mmol/L 98-108 H CO2 TOTAL (test code = 5707768002) 16 mmol/L 23-31 L AGAP (test code = 4605808373) 8 2-16 BUN (test code = 8003401799) 30 mg/dL 7-23 H GLUCOSE (test code = 5955841634) 173 mg/dL 70-110 H CREATININE (test code = 2160-0) 1.69 mg/dL 0.50-1.04 H TOTAL BILI (test code = 6901768948) 0.4 mg/dL 0.1-1.1 CALCIUM (test code = 0606110883) 10.1 mg/dL 8.6-10.6 T PROTEIN (test code = 6442774905) 8.5 g/dL 6.3-8.2 H ALBUMIN (test code = 0735113347) 3.9 g/dL 3.5-5.0 ALK PHOS (test code = 0922849936) 76 U/L 34-122 ALTv (test code = 1742-6) 35 U/L 5-35 AST(SGOT) (test code = 0316554727) 54 U/L 13-40 H eGFR (test code = 21938-3) 34.4 mL/min/1.73m2 CKD-EPI eGFR (2020). Assuming creatinine has been stable day-to-day for at least three months, the eGFR indicates Category G3b (30 - 44 mL/min/1.73 m2) Lab Interpretation (test code = 08748-0) [facility] 15:37:06* Test Item Value Reference Range Interpretation Comme nts Height (test code = 5084918635) 63 in Weight (test code = 9748257568) 140 lbs Systolic BP (test code = 5865845061) 118 mmHg Diastolic BP (test code = 4683648667) 58 mmHg Heart Rate (test code = 1064164958) 78 bpm BSA (test code = 0181469565) 1.66 m2 Ao root diam (test code = 0001349116) 2.90 cm Aortic root (test code = 3116384922) 2.9 cm Ao root annulus (test code = 0825736552) 2.9 cm LVOT diameter (test code = 2119500004) 1.96 cm LVOT area (test code = 5711539019) 3.00 cm2 LA size (test code = 8988415377) 3.2 cm LVIDD (test code = 6047855543) 2.90 cm Left Ventricular End Diastolic Volume by Teichholz Method (test code = 2196192) 32.6 mL IVS (test code = 6785652620) 1.26 cm Interventricular Septum Diastolic Thickness by 2D (test code = 8026967) 1.26 cm LVPWD (test code = 6979562897) 1.23 cm PW (test code = 2580627738) 1.23 cm 0.6-1.1 EF(Teich) (test code = 5031807270) 55.00 % LVIDS (test code = 3486854683) 2.11 cm Left Ventricular End Systolic Volume by Teichholz Method (test code = 9164479) 14.7 mL FS (test code = 7527248059) 27 % EF - 2D (test code = 56161033) 55.00 % LAV(MOD-sp4) (test code = 9028207277) 20.20 mL E wave decelartion time (test code = 4927908613) 0.18 s MV Peak E Barber (test code = 2907226794) 72.8 cm/s MV stenosis pressure 1/2 time (test code = 9223809762) 51.2 ms MV Peak A Barber (test code = 9050128039) 73.4 cm/s E/A ratio (test code = 9721420224) 0.99 ratio MV Prop V (test code = 6388210868) 180.80 cm/s MV E/e' septal (test code = 6828749527) 10.8 cm/s Tapse (test code = 1883160008) 2.08 cm LVOT stroke volume (test code = 4363488029) 73.30 cm3 LVOT peak barber (test code = 1268914719) 125.3 cm/s LVOT mn grad (test code = 0574849030) 3.6 mmHg AV LVOT peak gradient (test code = 3956860962) 6.3 mmHg LVOT peak VTI (test code = 1438102330) 24.3 cm LV V1 mean (test code = 0748477283) 89.60 cm/s Aortic valve mean velocity (test code = 4631741745) 236.9 cm/s Ao peak barber (test code = 5004141455) 333.6 cm/s Ao VTI (test code = 4339508206) 58.2 cm AV area by cont VTI (test code = 2578635457) 1.3 cm2 AV area peak barber (test code = 4760820340) 1.1 cm2 Ao max PG (test code = 9875420925) 44.60 mm[Hg] AV peak gradient (test code = 6811069627) 44.6 mmHg AV valve area (test code = 8338729530) 1.26 cm2 AV mean gradient (test code = 9209301507) 24.9 mmHg Radiology Study observation (narrative) (test code = 06164-3) GARRY (test code = GARRY) Table formatting f rom the original result was not included. ?Left?Ventricle: Left ventricle size is normal. Moderately increased wall thickness. There is severe concentric hypertrophy. Normal wall motion. Hyperdynamic systolic function with a visually estimated EF of greater than 65%. LVOT obstruction at rest with peak gradient of at least 26 mmHg. ?Aortic?Valve: Mild transvalvular regurgitation. Consistent with moderate aortic stenosis. AV mean gradient is 23.1 mmHg. AV peak velocity is 3.0 m/s. AV area by continuity VTI is 1.3 cm2. LVOT 2.0 cm. ?Tricuspid?Valve: Insufficient tricuspid regurgitation jet to estimate RVSP . ?IVC/SVC: IVC diameter is less than or equal to 21 mm and decreases greater than 50% during inspiration; therefore the estimated right atrial pressure is normal (~0-5 mmHg). VitalsHeight Weight BSA (Calculated - sq m) BP Pulse 5' 3" (1.6 m) 158 lb (71.7 kg) 1.78 sq meters 112/63 80 Left VentricleLeft ventricle size is normal. Moderately increased wall thickness. There is severe concentric hypertrophy. Normal wall motion. Hyperdynamic systolic function with a visually estimated EF of greater than 65%. There is grade 1 diastolic dysfunction and impaired relaxation. LVOT obstruction at rest with peak gradient of at least 26 mmHg.Right VentricleRight ventricle size is normal. Normal systolic function.Left AtriumLeft atrium size is normal.Right AtriumRight atrium size is normal.IVC/SVCIVC diameter is less than or equal to 21 mm and decreases greater than 50% during inspiration; therefore the estimated right atrial pressure is normal (~0-5 mmHg).Mitral ValveMitral valve structure is normal.Tricuspid ValveTricuspid valve structure is normal. Insufficient tricuspid regurgitation jet to estimate RVSP .Aortic ValveModerately thickened cusps. Moderately calcified cusps. Moderate annular calcification. Mild transvalvular regurgitation. Consistent with moderate aortic stenosis. AV mean gradient is 23.1 mmHg. AV peak velocity is 3.0 m/s. AV area by continuity VTI is 1.3 cm2. LVOT 2.0 cm.Pulmonic ValveNot well visualized.Ascending AortaNormal sized sinus of Valsalva.PericardiumNo pericardial effusion.Study DetailsStudy quality experienced technical difficulty. A complete echocardiogram was performed using 2D, color flow Doppler and spectral Doppler. [facility] WITH [id number] 19:09:02* Test Item Value Reference Range Interpretation Comme nts WBC (test code = 6690-2) 5.24 4.30-11.10 RBC (test code = 789-8) 3.83 3.93-5.25 L HGB (test code = 718-7) 14.2 g/dL 11.6-15.0 HCT (test code = 4544-3) 42.4 % 35.7-45.2 MCV (test code = 787-2) 110.7 fL 80.6-95.5 H MCH (test code = 785-6) 37.1 pg 25.9-32.8 H MCHC (test code = 786-4) 33.5 g/dL 31.6-35.1 RDW-SD (test code = 75258-1) 55.2 fL 39.0-49.9 H RDW-CV (test code = 788-0) 13.4 % 12.0-15.5 PLT (test code = 777-3) 142 166-358 L MPV (test code = 15893-6) 11.4 fL 9.5-12.9 NRBC/100 WBC (test code = 9410274730) 0.0 0.0-10.0 NRBC x10^3 (test code = 2380541819) See_Comment [Automated messa ge] The system which generated this result transmitted reference range: 10*3/?L. The reference range was not used to interpret this result as normal/abnormal. GRAN MAT (NEUT) % (test code = 770-8) 62.9 % IMM GRAN % (test code = 2644937583) 0.40 % LYMPH % (test code = 736-9) 27.3 % MONO % (test code = 5905-5) 9.0 % EOS % (test code = 713-8) 0.2 % BASO % (test code = 706-2) 0.2 % GRAN MAT x10^3(ANC) (test code = 7058492282) 3.30 10*3/uL 1.88-7.09 IMM GRAN x10^3 (test code = 6526240701) 0.00-0.06 LYMPH x10^3 (test code = 731-0) 1.43 10*3/uL 1.32-3.29 MONO x10^3 (test code = 742-7) 0.47 10*3/uL 0.33-0.92 EOS x10^3 (test code = 711-2) 0.03-0.39 L BASO x10^3 (test code = 704-7) 0.01-0.07 Lab Interpretation (test code = 00262-3) [facility] [id number] 18:52:52* Test Item Value Reference Range Interpretation Comme nts TROPONIN I (test code = 4696021643) 0.160 ng/mL <=0.034 H GARRY (test code = GARRY) Reference (Normal) Range (defined by the 99th percentile reference limit): <= 0.034 ng/mL Note: Cardiac troponin begins to rise 3-4 hours after the onset of ischemia. Repeat in 4-6 hours if the sample was drawn within 3-4 hours of the onset of the symptom and found normal. Diagnosis of myocardial injury is made with acute changes in cTn concentrations with at least one serial sample above the 99th percentile upper reference limit (URL), taken together with the patient's clinical presentation. Biotin has been reported to cause a negative bias, interpret results relative to patient's use of biotin. Lab Interpretation (test code = 55924-8) [facility]OL[facility] ([id number])2023-05-16 18:41:47* Test Item Value Reference Range Interpretation Comme nts NA (test code = 9402530527) 143 mmol/L 135-145 K (test code = 5570222795) 3.9 mmol/L 3.5-5.0 CL (test code = 7154125705) 116 mmol/L 98-108 H CO2 TOTAL (test code = 4188170639) 15 mmol/L 23-31 L AGAP (test code = 0650836219) 12 2-16 BUN (test code = 6019921134) 29 mg/dL 7-23 H GLUCOSE (test code = 7834429275) 104 mg/dL 70-110 CREATININE (test code = 2160-0) 1.90 mg/dL 0.50-1.04 H TOTAL BILI (test code = 6806079316) 0.5 mg/dL 0.1-1.1 CALCIUM (test code = 4791144753) 10.2 mg/dL 8.6-10.6 T PROTEIN (test code = 4704554548) 9.8 g/dL 6.3-8.2 H ALBUMIN (test code = 4597107853) 4.6 g/dL 3.5-5.0 ALK PHOS (test code = 3504906917) 103 U/L 34-122 ALTv (test code = 1742-6) 44 U/L 5-35 H AST(SGOT) (test code = 6723092987) 54 U/L 13-40 H eGFR (test code = 77529-4) 29.9 mL/min/1.73m2 Lab Interpretation (test cod e = 06550-2) [facility], [id number] 18:41:26* Test Item Value Reference Range Interpretation Comme nts LIPASE (test code = 2248275799) 123 U/L 0-220 Lab Interpretation (test cod e = 51574-9) [facility] Venous [facility] [id number] 18:29:21 * Test Item Value Reference Range Interpretation Comme nts PH (test code = 6397212603) 7.25 7.32-7.42 L PCO2 BEBA (test code = 8266320171) 40 41-51 L PO2 BEBA (test code = 5601671981) 27 25-40 HCO3 BEBA (test code = 2372853482) 17 24-28 L AC VBE(BEAKER) (test code = 0030197811) -9.3 mEq/L Lab Interpretation (test cod e = 37073-6) [facility] 1 [id number] 18:03:51HISTORY: Cough and SOB. TECHNIQUE: Portable AP view of the chest is obtained. Comparison made with06/09/2021 study. FINDINGS: Abnormal findings are seen in both lungs, likely chronic changesof nonspecific pulmonary fibrosis. Superimposed mild acute inflammatorycongestion is difficult to exclude in both lungs. No focal consolidation.Cardiac size is upper normal. No pneumothorax or pleural effusion. CONCLUSIONS: Chronic changes of nonspecific bilateral pulmonary fibrosiswith superimposed minimal acute congestion suspected in right upper andleft lower lung. Acute findings could be secondary to viral infection.[facility], [id number] 08:50:21SPECIMEN NUMBER: [id number] CULTURE, URINE SPECIMEN NUMBER: [id number] SPECIMEN COMMENT: URINE SOURCE: URINE REPORT STATUS: FINAL FINAL REPORT: 05/11/2023 10-50,000 CFU/ML UROGENITAL KARLA PRESENT NO COMMON PATHOGENSCULTNIALL, [id number] 00:00:00* Test Item Value Reference Range Interpretation Comme nts CULTURE, URINE (test code = 58907) SPECIMEN NUMBER: [id number] Delfino SarmientoLTNIALL, [id number] 00:00:00* Test Item Value Reference Range Interpretation Comme nts CULTURE, URINE (test code = 72644) SPECIMEN NUMBER: [id number] Delfino OrtaCULTNIALL, [id number] 00:00:00* Test Item Value Reference Range Interpretation Comme nts CULTURE, URINE (test code = 44327) SPECIMEN NUMBER: [id number] Delfino SarmientoLTNIALL, [id number] 00:00:00* Test Item Value Reference Range Interpretation Comme nts CULTURE, URINE (test code = 21783) SPECIMEN NUMBER: [id number] Delfino OrtaCULTURE, [id number] 00:00:00* Test Item Value Reference Range Interpretation Comme nts CULTURE, URINE (test code = 92956) SPECIMEN NUMBER: [id number] Delfino SarmientoLTURE, [id number] 00:00:00* Test Item Value Reference Range Interpretation Comme nts CULTURE, URINE (test code = 18532) SPECIMEN NUMBER: [id number] Delfino SarmientoLTURE, [id number] 00:00:00* Test Item Value Reference Range Interpretation Comme nts CULTURE, URINE (test code = 64244) SPECIMEN NUMBER: [id number] Delfino SarmientoLTURE, [id number] 00:00:00* Test Item Value Reference Range Interpretation Comme nts CULTURE, URINE (test code = 95974) SPECIMEN NUMBER: [id number] Delfino OrtaVAGINAL PATHOGENS DNA [id number] 14:05:30* Test Item Value Reference Range Interpretation Comme nts DIANNA SPECIES (test code = 48121) NEGATIVE NEGATIVE G. VAGINALIS (test code = 24467) NEGATIVE NEGATIVE T. VAGINALIS (test code = 54424) NEGATIVE NEGATIVE Note: The [employer] VPIII Microbial Identification Testis a DNA probe test intended for use in the detectionand identification of Dianna species, Gardnerellavaginalis and Trichomonas vaginalis nucleic acid. CT/NG, NAAT, [id number] 12:17:23* Test Item Value Reference Range Interpretation Comme nts CHLAMYDIA, NAAT, URINE (test code = 08232) NEGATIVE NEGATIVE Testing is perfo rmed with Epifanio JOSE 6800/8800 systems usingreal-time polymerase chain reaction (PCR) method. A negative result does not exclude low level infection, specimensampling error, or collection error. GONORRHEA, NAAT, URINE (test code = 50648) NEGATIVE NEGATIVE Testing is perfo rmed with Epifanio JOSE 6800/8800 systems usingreal-time polymerase chain reaction (PCR) method. A negative result does not exclude low level infection, specimensampling error, or collection error. UNLESS OTHERWISE INDICATED, ALL TESTING PERFORMED AT [facility] [address] [place] [address] SALES AND CUSTOMER RELATIONS REP: ABBI SHORT M.D. CLIA NUMBER [id number] [facility]. [id number] VAGINAL PATHOGENS DNA [id number] 00:00:00* Test Item Value Reference Range Interpretation Comme nts DIANNA SPECIES (test code = ) NEGATIVE G. VAGINALIS (test code = 26459) NEGATIVE T. VAGINALIS (test code = ) NEGATIVE Delfino F AustinCT/NG, TMA, [id number] 00:00:00* Test Item Value Reference Range Interpretation Comme nts CHLAMYDIA, NAAT, URINE (test code = 49301) NEGATIVE GONORRHEA, NAAT, URINE (test code = 31635) NEGATIVE Delfino F AustinVAGINAL PATHOGENS DNA [id number] 00:00:00* Test Item Value Reference Range Interpretation Comme nts DIANNA SPECIES (test code = ) NEGATIVE G. VAGINALIS (test code = 74158) NEGATIVE T. VAGINALIS (test code = 61538) NEGATIVE Delfino F AustinCT/NG, TMA, [id number] 00:00:00* Test Item Value Reference Range Interpretation Comme nts CHLAMYDIA, NAAT, URINE (test code = 41832) NEGATIVE GONORRHEA, NAAT, URINE (test code = 61690) NEGATIVE Delfino F AustinVAGINAL PATHOGENS DNA [id number] 00:00:00* Test Item Value Reference Range Interpretation Comme nts DIANNA SPECIES (test code = ) NEGATIVE G. VAGINALIS (test code = 98621) NEGATIVE T. VAGINALIS (test code = ) NEGATIVE Delfino F AustinCT/NG, TMA, [id number] 00:00:00* Test Item Value Reference Range Interpretation Comme nts CHLAMYDIA, NAAT, URINE (test code = 28443) NEGATIVE GONORRHEA, NAAT, URINE (test code = 14326) NEGATIVE Delfino F AustinVAGINAL PATHOGENS DNA [id number] 00:00:00* Test Item Value Reference Range Interpretation Comme nts DIANNA SPECIES (test code = ) NEGATIVE G. VAGINALIS (test code = 52381) NEGATIVE T. VAGINALIS (test code = 25989) NEGATIVE Delfino F AustinCT/NG, TMA, [id number] 00:00:00* Test Item Value Reference Range Interpretation Comme nts CHLAMYDIA, NAAT, URINE (test code = 48457) NEGATIVE GONORRHEA, NAAT, URINE (test code = 05047) NEGATIVE Delfino Endy AustinVAGINAL PATHOGENS DNA [id number] 00:00:00* Test Item Value Reference Range Interpretation Comme nts DIANNA SPECIES (test code = ) NEGATIVE G. VAGINALIS (test code = 69658) NEGATIVE T. VAGINALIS (test code = 01608) NEGATIVE Delfino Schumacher AustinCT/NG, TMA, [id number] 00:00:00* Test Item Value Reference Range Interpretation Comme nts CHLAMYDIA, NAAT, URINE (test code = 41768) NEGATIVE GONORRHEA, NAAT, URINE (test code = 55868) NEGATIVE Delfino Endy AustinVAGINAL PATHOGENS DNA [id number] 00:00:00* Test Item Value Reference Range Interpretation Comme nts DIANNA SPECIES (test code = ) NEGATIVE G. VAGINALIS (test code = 93738) NEGATIVE T. VAGINALIS (test code = 91183) NEGATIVE Delfino Schumacher AustinCT/NG, TMA, [id number] 00:00:00* Test Item Value Reference Range Interpretation Comme nts CHLAMYDIA, NAAT, URINE (test code = 58797) NEGATIVE GONORRHEA, NAAT, URINE (test code = 06914) NEGATIVE Delfino Schumacher AustinVAGINAL PATHOGENS DNA [id number] 00:00:00* Test Item Value Reference Range Interpretation Comme nts DIANNA SPECIES (test code = ) NEGATIVE G. VAGINALIS (test code = 15770) NEGATIVE T. VAGINALIS (test code = 12574) NEGATIVE Delfino Schumacher AustinCT/NG, TMA, [id number] 00:00:00* Test Item Value Reference Range Interpretation Comme nts CHLAMYDIA, NAAT, URINE (test code = 05739) NEGATIVE GONORRHEA, NAAT, URINE (test code = 39840) NEGATIVE Delfino Schumacher AustinVAGINAL PATHOGENS DNA [id number] 00:00:00* Test Item Value Reference Range Interpretation Comme nts DIANNA SPECIES (test code = 31286) NEGATIVE G. VAGINALIS (test code = 67796) NEGATIVE T. VAGINALIS (test code = 14902) NEGATIVE Delfino F AustinCT/NG, TMA, [id number] 00:00:00* Test Item Value Reference Range Interpretation Comme nts CHLAMYDIA, NAAT, URINE (test code = 81890) NEGATIVE GONORRHEA, NAAT, URINE (test code = 82641) NEGATIVE Delfino Schumacher [id number] 20:25:19* Test Item Value Reference Range Interpretation Comme nts CALCIUM (test code = 2209) 10.6 MG/DL 8.5-10.5 H [id number] 20:25:10* Test Item Value Reference Range Interpretation Comme nts PHOSPHORUS (test code = 2227) 2.9 MG/DL 2.5-4.5 UNLESS OTHERWISE INDICATED, ALL TESTING PERFORMED AT [facility] [address] [place] [address] SALES AND CUSTOMER RELATIONS REP: ABBI SHORT M.D. CLIA NUMBER [id number] [facility] [place]. [id number] CALCIUM, [id number] 09:33:19* Test Item Value Reference Range Interpretation Comme nts CALCIUM, IONIZED (test code = 62342) 5.50 MG/DL 4.70-5.90 INTACT [id number] 09:28:17* Test Item Value Reference Range Interpretation Comme nts INTACT PTH (test code = 5005) 60 PG/ML 15-65 INTACT [id number] 00:00:00* Test Item Value Reference Range Interpretation Comme nts INTACT PTH (test code = 5005) 60 PG/ML Delfino Schumacher AustinCALCIUM, [id number] 00:00:00* Test Item Value Reference Range Interpretation Comme nts CALCIUM, IONIZED (test code = 89232) 5.50 MG/DL Delfino Schumacher [id number] 00:00:00* Test Item Value Reference Range Interpretation Comme nts CALCIUM (test code = 2209) 10.6 MG/DL Delfino Schumacher [id number] 00:00:00* Test Item Value Reference Range Interpretation Comme nts PHOSPHORUS (test code = 2227) 2.9 MG/DL Delfino Schumacher AustinINTACT [id number] 00:00:00* Test Item Value Reference Range Interpretation Comme nts INTACT PTH (test code = 5005) 60 PG/ML Delfino Schumacher AustinINTACT [id number] 00:00:00* Test Item Value Reference Range Interpretation Comme nts INTACT PTH (test code = 5005) 60 PG/ML Delfino Schumacher AustinCALCIUM, [id number] 00:00:00* Test Item Value Reference Range Interpretation Comme nts CALCIUM, IONIZED (test code = 01407) 5.50 MG/DL Delfino Schumacher [id number] 00:00:00* Test Item Value Reference Range Interpretation Comme nts CALCIUM (test code = 2209) 10.6 MG/DL Delfino Schumacher [id number] 00:00:00* Test Item Value Reference Range Interpretation Comme nts PHOSPHORUS (test code = 2227) 2.9 MG/DL Delfino Schumacher AustinINTACT [id number] 00:00:00* Test Item Value Reference Range Interpretation Comme nts INTACT PTH (test code = 5005) 60 PG/ML Delfino OrtaCALCIUM, [id number] 00:00:00* Test Item Value Reference Range Interpretation Comme nts CALCIUM, IONIZED (test code = 44234) 5.50 MG/DL Delfino Schumacher [id number] 00:00:00* Test Item Value Reference Range Interpretation Comme nts CALCIUM (test code = 2209) 10.6 MG/DL Delfino Schumacher [id number] 00:00:00* Test Item Value Reference Range Interpretation Comme nts PHOSPHORUS (test code = 2227) 2.9 MG/DL Delfino Schumacher AustinCALCIUM, [id number] 00:00:00* Test Item Value Reference Range Interpretation Comme nts CALCIUM, IONIZED (test code = 85424) 5.50 MG/DL Delfino Schumacher [id number] 00:00:00* Test Item Value Reference Range Interpretation Comme nts CALCIUM (test code = 2209) 10.6 MG/DL Delfino Schumacher [id number] 00:00:00* Test Item Value Reference Range Interpretation Comme nts PHOSPHORUS (test code = 2227) 2.9 MG/DL Delfino Schumacher AustinINTACT [id number] 00:00:00* Test Item Value Reference Range Interpretation Comme nts INTACT PTH (test code = 5005) 60 PG/ML Delfino Schumacher AustinCALCIUM, [id number] 00:00:00* Test Item Value Reference Range Interpretation Comme nts CALCIUM, IONIZED (test code = 06115) 5.50 MG/DL Delfino Schumacher [id number] 00:00:00* Test Item Value Reference Range Interpretation Comme nts CALCIUM (test code = 2209) 10.6 MG/DL Delfino Schumacher [id number] 00:00:00* Test Item Value Reference Range Interpretation Comme nts PHOSPHORUS (test code = 2227) 2.9 MG/DL Delfino Schumacher AustinINTACT [id number] 00:00:00* Test Item Value Reference Range Interpretation Comme nts INTACT PTH (test code = 5005) 60 PG/ML Delfino Schumacher AustinCALCIUM, [id number] 00:00:00* Test Item Value Reference Range Interpretation Comme nts CALCIUM, IONIZED (test code = 42468) 5.50 MG/DL Delfino Schumacher [id number] 00:00:00* Test Item Value Reference Range Interpretation Comme nts CALCIUM (test code = 2209) 10.6 MG/DL Delfino Schumacher [id number] 00:00:00* Test Item Value Reference Range Interpretation Comme nts PHOSPHORUS (test code = 2227) 2.9 MG/DL Delfino Schumacher AustinINTACT [id number] 00:00:00* Test Item Value Reference Range Interpretation Comme nts INTACT PTH (test code = 5005) 60 PG/ML Delfino Schumacher AustinCALCIUM, [id number] 00:00:00* Test Item Value Reference Range Interpretation Comme nts CALCIUM, IONIZED (test code = 72747) 5.50 MG/DL Delfino Schumacher [id number] 00:00:00* Test Item Value Reference Range Interpretation Comme nts CALCIUM (test code = 2209) 10.6 MG/DL Delfino Schumacher [id number] 00:00:00* Test Item Value Reference Range Interpretation Comme nts PHOSPHORUS (test code = 2227) 2.9 MG/DL Delfino Schumacher AustinINTACT [id number] 00:00:00* Test Item Value Reference Range Interpretation Comme nts INTACT PTH (test code = 5005) 60 PG/ML Delfino Schumacher AustinCALCIUM, [id number] 00:00:00* Test Item Value Reference Range Interpretation Comme nts CALCIUM, IONIZED (test code = 74394) 5.50 MG/DL Delfino [id number] 00:00:00* Test Item Value Reference Range Interpretation Comme nts CALCIUM (test code = 2209) 10.6 MG/DL Delfino [id number] 00:00:00* Test Item Value Reference Range Interpretation Comme nts PHOSPHORUS (test code = 2227) 2.9 MG/DL Delfino SarmientoLTNIALL, [id number] 09:25:56SPECIMEN NUMBER: [id number] CULTURE, URINE SPECIMEN NUMBER: [id number] SPECIMEN COMMENT: URINE SOURCE: URINE REPORT STATUS: FINAL FINAL REPORT: 03/09/2023 10-50,000 CFU/ML UROGENITAL KARLA PRESENT NO COMMON PATHOGENSCULTURE, [id number] 00:00:00* Test Item Value Reference Range Interpretation Comme nts CULTURE, URINE (test code = 93075) SPECIMEN NUMBER: [id number] Delfino SarmientoLTNIALL, [id number] 00:00:00* Test Item Value Reference Range Interpretation Comme nts CULTURE, URINE (test code = 80577) SPECIMEN NUMBER: [id number] Delfino SarmientoLTNIALL, [id number] 00:00:00* Test Item Value Reference Range Interpretation Comme nts CULTURE, URINE (test code = 73915) SPECIMEN NUMBER: [id number] Delfino SarmientoLTNIALL, [id number] 00:00:00* Test Item Value Reference Range Interpretation Comme nts CULTURE, URINE (test code = 33003) SPECIMEN NUMBER: [id number] Delfino SarmientoLTURE, [id number] 00:00:00* Test Item Value Reference Range Interpretation Comme nts CULTURE, URINE (test code = 34409) SPECIMEN NUMBER: [id number] Delfino OrtaCULTURE, [id number] 00:00:00* Test Item Value Reference Range Interpretation Comme nts CULTURE, URINE (test code = 59048) SPECIMEN NUMBER: [id number] Delfino SarmientoLTURE, [id number] 00:00:00* Test Item Value Reference Range Interpretation Comme nts CULTURE, URINE (test code = 33914) SPECIMEN NUMBER: [id number] Delfino SarmientoLTURE, [id number] 00:00:00* Test Item Value Reference Range Interpretation Comme nts CULTURE, URINE (test code = 95464) SPECIMEN NUMBER: [id number] Delfino OrtaCOMPREHENSIVE METABOLIC [id number] 04:45:25* Test Item Value Reference Range Interpretation Comme nts GLUCOSE (test code = 2217) 87 MG/DL 70-99 BUN (test code = 2208) 32 MG/DL 8-23 H CREATININE (test code = 221) 1.39 MG/DL 0.60-1.30 H eGFR (2020 CKD-EPI) (test co de = 76817) 43 ML/MIN/1.73 >60 L CALC BUN/CREAT (test code = 2235) 23 RATIO 6-28 SODIUM (test code = 2231) 141 MEQ/L 133-146 POTASSIUM (test code = 2228) 4.6 MEQ/L 3.5-5.4 CHLORIDE (test code = 2215) 110 MEQ/L 95-107 H CARBON DIOXIDE (test code = 2206) 19 MEQ/L 19-31 CALCIUM (test code = 2209) 10.6 MG/DL 8.5-10.5 H PROTEIN, TOTAL (test code = 2229) 9.6 G/DL 6.1-8.3 H ALBUMIN (test code = 2201) 4.6 G/DL 3.5-5.2 CALC GLOBULIN (test code = 2240) 5.0 G/DL 1.9-3.7 H CALC A/G RATIO (test code = 2234) 0.9 RATIO 1.0-2.6 L BILIRUBIN, TOTAL (test code = 2207) 0.4 MG/DL <=1.2 ALKALINE PHOSPHATASE (test code = 2204) 93 U/L 40-136 AST (test code = 2218) 32 U/L 9-40 ALT (test code = 2219) 32 U/L 5-40 LIPID [id number] 04:45:25* Test Item Value Reference Range Interpretation Comme nts CHOLESTEROL (test code = 2210) 187 MG/DL <200 TRIGLYCERIDES (test code = 2232) 58 MG/DL <150 HDL CHOLESTEROL (test code = 2220) 110 MG/DL >39 CALC LDL CHOL (test code = 2237) 64 MG/DL <100 NOTE: CALCULATED LDL IS BASED ON CLOTILDE-STARKEY METHOD WHICHINCLUDES ADJUSTABLE TRIGLYCERIDE:VLDL CHOLESTEROL RATIO.THIS FACTOR VARIES BY MEASURED TRIGLYCERIDE AND NON-HDLCHOLESTEROL CONCENTRATIONS WITH INCREASED CALCULATED LDL SEENIN HIGHER TRIGLYCERIDE OR LOWER NON-HDL SPECIMENS. FOR MOREINFORMATION, SEE CLIENT ANNOUNCEMENT AT [email or web address] RISK RATIO LDL/HDL (test code = 2238) 0.58 RATIO <3.22 UNLESS OTHERW ISE INDICATED, ALL TESTING PERFORMED AT [facility] [address] [place] [address] SALES AND CUSTOMER RELATIONS REP: ABBI SHORT M.D. CLIA NUMBER [id number] [facility] [place]. [id number] COMPREHENSIVE METABOLIC [id number] 00:00:00* Test Item Value Reference Range Interpretation Comme nts GLUCOSE (test code = 2217) 87 MG/DL BUN (test code = 2208) 32 MG/DL CREATININE (test code = 2214) 1.39 MG/DL eGFR (2020 CKD-EPI) (test co de = 73859) 43 ML/MIN/1.73 CALC BUN/CREAT (test code = 2235) 23 RATIO SODIUM (test code = 2231) 141 MEQ/L POTASSIUM (test code = 2228) 4.6 MEQ/L CHLORIDE (test code = 2215) 110 MEQ/L CARBON DIOXIDE (test code = 2206) 19 MEQ/L CALCIUM (test code = 2209) 10.6 MG/DL PROTEIN, TOTAL (test code = 2229) 9.6 G/DL ALBUMIN (test code = 2201) 4.6 G/DL CALC GLOBULIN (test code = 2240) 5.0 G/DL CALC A/G RATIO (test code = 2234) 0.9 RATIO BILIRUBIN, TOTAL (test code = 2207) 0.4 MG/DL ALKALINE PHOSPHATASE (test code = 2204) 93 U/L AST (test code = 2218) 32 U/L ALT (test code = 2219) 32 U/L Delfino OrtaLIPID [id number] 00:00:00* Test Item Value Reference Range Interpretation Comme nts CHOLESTEROL (test code = 2210) 187 MG/DL TRIGLYCERIDES (test code = 2232) 58 MG/DL HDL CHOLESTEROL (test code = 2220) 110 MG/DL CALC LDL CHOL (test code = 2237) 64 MG/DL RISK RATIO LDL/HDL (test cod e = 2238) 0.58 RATIO Dlefino OrtaCOMPREHENSIVE METABOLIC [id number] 00:00:00* Test Item Value Reference Range Interpretation Comme nts GLUCOSE (test code = 2217) 87 MG/DL BUN (test code = 2208) 32 MG/DL CREATININE (test code = 2214) 1.39 MG/DL eGFR (2020 CKD-EPI) (test co de = 43575) 43 ML/MIN/1.73 CALC BUN/CREAT (test code = 2235) 23 RATIO SODIUM (test code = 2231) 141 MEQ/L POTASSIUM (test code = 2228) 4.6 MEQ/L CHLORIDE (test code = 2215) 110 MEQ/L CARBON DIOXIDE (test code = 2206) 19 MEQ/L CALCIUM (test code = 2209) 10.6 MG/DL PROTEIN, TOTAL (test code = 2229) 9.6 G/DL ALBUMIN (test code = 2201) 4.6 G/DL CALC GLOBULIN (test code = 2240) 5.0 G/DL CALC A/G RATIO (test code = 2234) 0.9 RATIO BILIRUBIN, TOTAL (test code = 2207) 0.4 MG/DL ALKALINE PHOSPHATASE (test code = 2204) 93 U/L AST (test code = 2218) 32 U/L ALT (test code = 2219) 32 U/L Delfino Schumacher AustinLIPID [id number] 00:00:00* Test Item Value Reference Range Interpretation Comme nts CHOLESTEROL (test code = 2210) 187 MG/DL TRIGLYCERIDES (test code = 2232) 58 MG/DL HDL CHOLESTEROL (test code = 2220) 110 MG/DL CALC LDL CHOL (test code = 2237) 64 MG/DL RISK RATIO LDL/HDL (test cod e = 2238) 0.58 RATIO Delfino Schumacher AustinCOMPREHENSIVE METABOLIC [id number] 00:00:00* Test Item Value Reference Range Interpretation Comme nts GLUCOSE (test code = 2217) 87 MG/DL BUN (test code = 2208) 32 MG/DL CREATININE (test code = 2214) 1.39 MG/DL eGFR (2020 CKD-EPI) (test co de = 54118) 43 ML/MIN/1.73 CALC BUN/CREAT (test code = 2235) 23 RATIO SODIUM (test code = 2231) 141 MEQ/L POTASSIUM (test code = 2228) 4.6 MEQ/L CHLORIDE (test code = 2215) 110 MEQ/L CARBON DIOXIDE (test code = 2206) 19 MEQ/L CALCIUM (test code = 2209) 10.6 MG/DL PROTEIN, TOTAL (test code = 2229) 9.6 G/DL ALBUMIN (test code = 2201) 4.6 G/DL CALC GLOBULIN (test code = 2240) 5.0 G/DL CALC A/G RATIO (test code = 2234) 0.9 RATIO BILIRUBIN, TOTAL (test code = 2207) 0.4 MG/DL ALKALINE PHOSPHATASE (test code = 2204) 93 U/L AST (test code = 2218) 32 U/L ALT (test code = 2219) 32 U/L Delfino Schumacher [place] Louis[place] [id number] 00:00:00* Test Item Value Reference Range Interpretation Comme nts CHOLESTEROL (test code = 2210) 187 MG/DL TRIGLYCERIDES (test code = 2232) 58 MG/DL HDL CHOLESTEROL (test code = 2220) 110 MG/DL CALC LDL CHOL (test code = 2237) 64 MG/DL RISK RATIO LDL/HDL (test cod e = 2238) 0.58 RATIO Delfino OrtaCOMPREHENSIVE METABOLIC [id number] 00:00:00* Test Item Value Reference Range Interpretation Comme nts GLUCOSE (test code = 2217) 87 MG/DL BUN (test code = 2208) 32 MG/DL CREATININE (test code = 2214) 1.39 MG/DL eGFR (2020 CKD-EPI) (test co de = 15289) 43 ML/MIN/1.73 CALC BUN/CREAT (test code = 2235) 23 RATIO SODIUM (test code = 2231) 141 MEQ/L POTASSIUM (test code = 2228) 4.6 MEQ/L CHLORIDE (test code = 2215) 110 MEQ/L CARBON DIOXIDE (test code = 2206) 19 MEQ/L CALCIUM (test code = 2209) 10.6 MG/DL PROTEIN, TOTAL (test code = 2229) 9.6 G/DL ALBUMIN (test code = 2201) 4.6 G/DL CALC GLOBULIN (test code = 2240) 5.0 G/DL CALC A/G RATIO (test code = 2234) 0.9 RATIO BILIRUBIN, TOTAL (test code = 2207) 0.4 MG/DL ALKALINE PHOSPHATASE (test code = 2204) 93 U/L AST (test code = 2218) 32 U/L ALT (test code = 2219) 32 U/L Delfino Schumacher AustinLIPID [id number] 00:00:00* Test Item Value Reference Range Interpretation Comme nts CHOLESTEROL (test code = 2210) 187 MG/DL TRIGLYCERIDES (test code = 2232) 58 MG/DL HDL CHOLESTEROL (test code = 2220) 110 MG/DL CALC LDL CHOL (test code = 2237) 64 MG/DL RISK RATIO LDL/HDL (test cod e = 2238) 0.58 RATIO Delfino OrtaCOMPREHENSIVE METABOLIC [id number] 00:00:00* Test Item Value Reference Range Interpretation Comme nts GLUCOSE (test code = 2217) 87 MG/DL BUN (test code = 2208) 32 MG/DL CREATININE (test code = 2214) 1.39 MG/DL eGFR (2020 CKD-EPI) (test co de = 03579) 43 ML/MIN/1.73 CALC BUN/CREAT (test code = 2235) 23 RATIO SODIUM (test code = 2231) 141 MEQ/L POTASSIUM (test code = 2228) 4.6 MEQ/L CHLORIDE (test code = 2215) 110 MEQ/L CARBON DIOXIDE (test code = 2206) 19 MEQ/L CALCIUM (test code = 2209) 10.6 MG/DL PROTEIN, TOTAL (test code = 2229) 9.6 G/DL ALBUMIN (test code = 2201) 4.6 G/DL CALC GLOBULIN (test code = 2240) 5.0 G/DL CALC A/G RATIO (test code = 2234) 0.9 RATIO BILIRUBIN, TOTAL (test code = 2207) 0.4 MG/DL ALKALINE PHOSPHATASE (test code = 2204) 93 U/L AST (test code = 2218) 32 U/L ALT (test code = 2219) 32 U/L Delfino Schumacher AustinLIP[place] [id number] 00:00:00* Test Item Value Reference Range Interpretation Comme nts CHOLESTEROL (test code = 2210) 187 MG/DL TRIGLYCERIDES (test code = 2232) 58 MG/DL HDL CHOLESTEROL (test code = 2220) 110 MG/DL CALC LDL CHOL (test code = 2237) 64 MG/DL RISK RATIO LDL/HDL (test cod e = 2238) 0.58 RATIO Delfino OrtaCOMPREHENSIVE METABOLIC [id number] 00:00:00* Test Item Value Reference Range Interpretation Comme nts GLUCOSE (test code = 2217) 87 MG/DL BUN (test code = 2208) 32 MG/DL CREATININE (test code = 2214) 1.39 MG/DL eGFR (2020 CKD-EPI) (test co de = 20986) 43 ML/MIN/1.73 CALC BUN/CREAT (test code = 2235) 23 RATIO SODIUM (test code = 2231) 141 MEQ/L POTASSIUM (test code = 2228) 4.6 MEQ/L CHLORIDE (test code = 2215) 110 MEQ/L CARBON DIOXIDE (test code = 2206) 19 MEQ/L CALCIUM (test code = 2209) 10.6 MG/DL PROTEIN, TOTAL (test code = 2229) 9.6 G/DL ALBUMIN (test code = 2201) 4.6 G/DL CALC GLOBULIN (test code = 2240) 5.0 G/DL CALC A/G RATIO (test code = 2234) 0.9 RATIO BILIRUBIN, TOTAL (test code = 2207) 0.4 MG/DL ALKALINE PHOSPHATASE (test code = 2204) 93 U/L AST (test code = 2218) 32 U/L ALT (test code = 2219) 32 U/L Delfino Schumacher [place]LIP[place] [id number] 00:00:00* Test Item Value Reference Range Interpretation Comme nts CHOLESTEROL (test code = 2210) 187 MG/DL TRIGLYCERIDES (test code = 2232) 58 MG/DL HDL CHOLESTEROL (test code = 2220) 110 MG/DL CALC LDL CHOL (test code = 2237) 64 MG/DL RISK RATIO LDL/HDL (test cod e = 2238) 0.58 RATIO Delfino OrtaCOMPREHENSIVE METABOLIC [id number] 00:00:00* Test Item Value Reference Range Interpretation Comme nts GLUCOSE (test code = 2217) 87 MG/DL BUN (test code = 2208) 32 MG/DL CREATININE (test code = 2214) 1.39 MG/DL eGFR (2020 CKD-EPI) (test co de = 09977) 43 ML/MIN/1.73 CALC BUN/CREAT (test code = 2235) 23 RATIO SODIUM (test code = 2231) 141 MEQ/L POTASSIUM (test code = 2228) 4.6 MEQ/L CHLORIDE (test code = 2215) 110 MEQ/L CARBON DIOXIDE (test code = 2206) 19 MEQ/L CALCIUM (test code = 2209) 10.6 MG/DL PROTEIN, TOTAL (test code = 2229) 9.6 G/DL ALBUMIN (test code = 2201) 4.6 G/DL CALC GLOBULIN (test code = 2240) 5.0 G/DL CALC A/G RATIO (test code = 2234) 0.9 RATIO BILIRUBIN, TOTAL (test code = 2207) 0.4 MG/DL ALKALINE PHOSPHATASE (test code = 2204) 93 U/L AST (test code = 2218) 32 U/L ALT (test code = 2219) 32 U/L Delfino OrtaLIPID [id number] 00:00:00* Test Item Value Reference Range Interpretation Comme nts CHOLESTEROL (test code = 2210) 187 MG/DL TRIGLYCERIDES (test code = 2232) 58 MG/DL HDL CHOLESTEROL (test code = 2220) 110 MG/DL CALC LDL CHOL (test code = 2237) 64 MG/DL RISK RATIO LDL/HDL (test cod e = 2238) 0.58 RATIO Delfino OrtaCOMPREHENSIVE METABOLIC [id number] 00:00:00* Test Item Value Reference Range Interpretation Comme nts GLUCOSE (test code = 2217) 87 MG/DL BUN (test code = 2208) 32 MG/DL CREATININE (test code = 2214) 1.39 MG/DL eGFR (2020 CKD-EPI) (test co de = 45842) 43 ML/MIN/1.73 CALC BUN/CREAT (test code = 2235) 23 RATIO SODIUM (test code = 2231) 141 MEQ/L POTASSIUM (test code = 2228) 4.6 MEQ/L CHLORIDE (test code = 2215) 110 MEQ/L CARBON DIOXIDE (test code = 2206) 19 MEQ/L CALCIUM (test code = 2209) 10.6 MG/DL PROTEIN, TOTAL (test code = 2229) 9.6 G/DL ALBUMIN (test code = 2201) 4.6 G/DL CALC GLOBULIN (test code = 2240) 5.0 G/DL CALC A/G RATIO (test code = 2234) 0.9 RATIO BILIRUBIN, TOTAL (test code = 2207) 0.4 MG/DL ALKALINE PHOSPHATASE (test code = 2204) 93 U/L AST (test code = 2218) 32 U/L ALT (test code = 2219) 32 U/L Delfino OrtaLIPID [id number] 00:00:00* Test Item Value Reference Range Interpretation Comme nts CHOLESTEROL (test code = 2210) 187 MG/DL TRIGLYCERIDES (test code = 2232) 58 MG/DL HDL CHOLESTEROL (test code = 2220) 110 MG/DL CALC LDL CHOL (test code = 2237) 64 MG/DL RISK RATIO LDL/HDL (test cod e = 2238) 0.58 RATIO Delfino OrtaCOMPREHENSIVE METABOLIC [id number] 00:00:00* Test Item Value Reference Range Interpretation Comme nts GLUCOSE (test code = 2217) 74 MG/DL BUN (test code = 2208) 16 MG/DL CREATININE (test code = 2214) 0.96 MG/DL eGFR (2020 CKD-EPI) (test co de = 04579) 69 ML/MIN/1.73 CALC BUN/CREAT (test code = [...] ALT (test code = 2219) 13 U/L Delfino OrtaLIPID [id number] 00:00:00* Test Item Value Reference Range Interpretation Comme nts CHOLESTEROL (test code = 2210) 183 MG/DL TRIGLYCERIDES (test code = 2232) 69 MG/DL HDL CHOLESTEROL (test code = 2220) 93 MG/DL CALC LDL CHOL (test code = 2237) 75 MG/DL RISK RATIO LDL/HDL (test cod e = 2238) 0.81 RATIO Delfino OrtaCOMPREHENSIVE METABOLIC [id number] 00:00:00* Test Item Value Reference Range Interpretation Comme nts GLUCOSE (test code = 2217) 74 MG/DL BUN (test code = 2208) 16 MG/DL CREATININE (test code = 2214) 0.96 MG/DL eGFR (2020 CKD-EPI) (test co de = 14149) 69 ML/MIN/1.73 CALC BUN/CREAT (test code = [...] ALT (test code = 2219) 13 U/L Delfino OrtaCOMPREHENSIVE METABOLIC [id number] 00:00:00* Test Item Value Reference Range Interpretation Comme nts GLUCOSE (test code = 2217) 74 MG/DL BUN (test code = 2208) 16 MG/DL CREATININE (test code = 2214) 0.96 MG/DL eGFR (2020 CKD-EPI) (test co de = 66968) 69 ML/MIN/1.73 CALC BUN/CREAT (test code = [...] code = 2219) 13 U/L COMPREHENSIVE METABOLIC [id number] 00:00:00* Test Item Value Reference Range Interpretation Comme nts GLUCOSE (test code = 2217) 74 MG/DL BUN (test code = 2208) 16 MG/DL CREATININE (test code = 2214) 0.96 MG/DL eGFR (2020 CKD-EPI) (test co de = 12505) 69 ML/MIN/1.73 CALC BUN/CREAT (test code = [...] (test code = 2219) 13 U/L LIPID [id number] 00:00:00* Test Item Value Reference Range Interpretation Comme nts CHOLESTEROL (test code = 2210) 183 MG/DL TRIGLYCERIDES (test code = 2232) 69 MG/DL HDL CHOLESTEROL (test code = 2220) 93 MG/DL CALC LDL CHOL (test code = 2237) 75 MG/DL RISK RATIO LDL/HDL (test cod e = 2238) 0.81 RATIO LIPID [id number] 00:00:00* Test Item Value Reference Range Interpretation Comme nts CHOLESTEROL (test code = 2210) 183 MG/DL TRIGLYCERIDES (test code = 2232) 69 MG/DL HDL CHOLESTEROL (test code = 2220) 93 MG/DL CALC LDL CHOL (test code = 2237) 75 MG/DL RISK RATIO LDL/HDL (test cod e = 2238) 0.81 RATIO LIPID [id number] 00:00:00* Test Item Value Reference Range Interpretation Comme nts CHOLESTEROL (test code = 2210) 183 MG/DL TRIGLYCERIDES (test code = 2232) 69 MG/DL HDL CHOLESTEROL (test code = 2220) 93 MG/DL CALC LDL CHOL (test code = 2237) 75 MG/DL RISK RATIO LDL/HDL (test cod e = 2238) 0.81 RATIO Delfino F YouCOMPREHENSIVE METABOLIC [id number] 00:00:00* Test Item Value Reference Range Interpretation Comme nts GLUCOSE (test code = 2217) 74 MG/DL BUN (test code = 2208) 16 MG/DL CREATININE (test code = 2214) 0.96 MG/DL eGFR (2020 CKD-EPI) (test co de = 48344) 69 ML/MIN/1.73 CALC BUN/CREAT (test code = [...] ALT (test code = 2219) 13 U/L Delfino Schumacher AustinCOMPREHENSIVE METABOLIC [id number] 00:00:00* Test Item Value Reference Range Interpretation Comme nts GLUCOSE (test code = 2217) 74 MG/DL BUN (test code = 2208) 16 MG/DL CREATININE (test code = 2214) 0.96 MG/DL eGFR (2020 CKD-EPI) (test co de = 23784) 69 ML/MIN/1.73 CALC BUN/CREAT (test code = [...] ALT (test code = 2219) 13 U/L Delfino Schumacher AustinLIPID [id number] 00:00:00* Test Item Value Reference Range Interpretation Comme nts CHOLESTEROL (test code = 2210) 183 MG/DL TRIGLYCERIDES (test code = 2232) 69 MG/DL HDL CHOLESTEROL (test code = 2220) 93 MG/DL CALC LDL CHOL (test code = 2237) 75 MG/DL RISK RATIO LDL/HDL (test cod e = 2238) 0.81 RATIO Delfino Schumacher AustinLIPID [id number] 00:00:00* Test Item Value Reference Range Interpretation Comme nts CHOLESTEROL (test code = 2210) 183 MG/DL TRIGLYCERIDES (test code = 2232) 69 MG/DL HDL CHOLESTEROL (test code = 2220) 93 MG/DL CALC LDL CHOL (test code = 2237) 75 MG/DL RISK RATIO LDL/HDL (test cod e = 2238) 0.81 RATIO Delfino Schumacher AustinCOMPREHENSIVE METABOLIC [id number] 00:00:00* Test Item Value Reference Range Interpretation Comme nts GLUCOSE (test code = 2217) 74 MG/DL BUN (test code = 2208) 16 MG/DL CREATININE (test code = 2214) 0.96 MG/DL eGFR (2020 CKD-EPI) (test co de = 11324) 69 ML/MIN/1.73 CALC BUN/CREAT (test code = [...] ALT (test code = 2219) 13 U/L Delfino Schumacher AustinLIPID [id number] 00:00:00* Test Item Value Reference Range Interpretation Comme nts CHOLESTEROL (test code = 2210) 183 MG/DL TRIGLYCERIDES (test code = 2232) 69 MG/DL HDL CHOLESTEROL (test code = 2220) 93 MG/DL CALC LDL CHOL (test code = 2237) 75 MG/DL RISK RATIO LDL/HDL (test cod e = 2238) 0.81 RATIO Delfino OrtaCOMPREHENSIVE METABOLIC [id number] 00:00:00* Test Item Value Reference Range Interpretation Comme nts GLUCOSE (test code = 2217) 74 MG/DL BUN (test code = 2208) 16 MG/DL CREATININE (test code = 2214) 0.96 MG/DL eGFR (2020 CKD-EPI) (test co de = 35403) 69 ML/MIN/1.73 CALC BUN/CREAT (test code = [...] ALT (test code = 2219) 13 U/L Delfino OrtaLIPID [id number] 00:00:00* Test Item Value Reference Range Interpretation Comme nts CHOLESTEROL (test code = 2210) 183 MG/DL TRIGLYCERIDES (test code = 2232) 69 MG/DL HDL CHOLESTEROL (test code = 2220) 93 MG/DL CALC LDL CHOL (test code = 2237) 75 MG/DL RISK RATIO LDL/HDL (test cod e = 2238) 0.81 RATIO Delfino OrtaCOMPREHENSIVE METABOLIC [id number] 00:00:00* Test Item Value Reference Range Interpretation Comme nts GLUCOSE (test code = 2217) 74 MG/DL BUN (test code = 2208) 16 MG/DL CREATININE (test code = 2214) 0.96 MG/DL eGFR (2020 CKD-EPI) (test co de = 20652) 69 ML/MIN/1.73 CALC BUN/CREAT (test code = [...] ALT (test code = 2219) 13 U/L Delfino Schumacher AustinLIPID [id number] 00:00:00* Test Item Value Reference Range Interpretation Comme nts CHOLESTEROL (test code = 2210) 183 MG/DL TRIGLYCERIDES (test code = 2232) 69 MG/DL HDL CHOLESTEROL (test code = 2220) 93 MG/DL CALC LDL CHOL (test code = 2237) 75 MG/DL RISK RATIO LDL/HDL (test cod e = 2238) 0.81 RATIO Delfino OrtaCOMPREHENSIVE METABOLIC [id number] 00:00:00* Test Item Value Reference Range Interpretation Comme nts GLUCOSE (test code = 2217) 74 MG/DL BUN (test code = 2208) 16 MG/DL CREATININE (test code = 2214) 0.96 MG/DL eGFR (2020 CKD-EPI) (test co de = 11581) 69 ML/MIN/1.73 CALC BUN/CREAT (test code = [...] ALT (test code = 2219) 13 U/L Delfino Schumacher AustinLIPID [id number] 00:00:00* Test Item Value Reference Range Interpretation Comme nts CHOLESTEROL (test code = 2210) 183 MG/DL TRIGLYCERIDES (test code = 2232) 69 MG/DL HDL CHOLESTEROL (test code = 2220) 93 MG/DL CALC LDL CHOL (test code = 2237) 75 MG/DL RISK RATIO LDL/HDL (test cod e = 2238) 0.81 RATIO Delfino Cedeño, [id number] 09:14:59SPECIMEN NUMBER: [id number] CULTURE, URINE SPECIMEN NUMBER: [id number] SPECIMEN COMMENT: URINE SOURCE: URINE REPORT STATUS: FINAL FINAL REPORT: 07/05/2021 >100,000 CFU/ML MIXED MICROBIAL POPULATIONPRESENT, NO PREDOMINATING ORGANISMS;PROBABLE CONTAMINANTS.CULTURE, [id number] 00:00:00* Test Item Value Reference Range Interpretation Comme nts CULTURE, URINE (test code = 71810) SPECIMEN NUMBER: [id number] Delfino Cedeño, [id number] 00:00:00* Test Item Value Reference Range Interpretation Comme nts CULTURE, URINE (test code = 21701) SPECIMEN NUMBER: [id number] CULTURE, [id number] 00:00:00* Test Item Value Reference Range Interpretation Comme nts CULTURE, URINE (test code = 54766) SPECIMEN NUMBER: [id number] CULTURE, [id number] 00:00:00* Test Item Value Reference Range Interpretation Comme nts CULTURE, URINE (test code = 71471) SPECIMEN NUMBER: [id number] CULTURE, [id number] 00:00:00* Test Item Value Reference Range Interpretation Comme nts CULTURE, URINE (test code = 25976) SPECIMEN NUMBER: [id number] CULTURE, [id number] 00:00:00* Test Item Value Reference Range Interpretation Comme nts CULTURE, URINE (test code = 36581) SPECIMEN NUMBER: [id number] CULTURE, [id number] 00:00:00* Test Item Value Reference Range Interpretation Comme nts CULTURE, URINE (test code = 20126) SPECIMEN NUMBER: [id number] CULTURE, [id number] 00:00:00* Test Item Value Reference Range Interpretation Comme nts CULTURE, URINE (test code = 51383) SPECIMEN NUMBER: [id number] CULTURE, [id number] 00:00:00* Test Item Value Reference Range Interpretation Comme nts CULTURE, URINE (test code = 53332) SPECIMEN NUMBER: [id number] Delfino SarmientoLTURE, [id number] 00:00:00* Test Item Value Reference Range Interpretation Comme nts CULTURE, URINE (test code = 74852) SPECIMEN NUMBER: [id number] Delfino SarmientoLTNIALL, [id number] 00:00:00* Test Item Value Reference Range Interpretation Comme nts CULTURE, URINE (test code = 84893) SPECIMEN NUMBER: [id number] Delfino SarmientoLTNIALL, [id number] 00:00:00* Test Item Value Reference Range Interpretation Comme nts CULTURE, URINE (test code = 98385) SPECIMEN NUMBER: [id number] Delfino SarmientoLTNIALL, [id number] 00:00:00* Test Item Value Reference Range Interpretation Comme nts CULTURE, URINE (test code = 74272) SPECIMEN NUMBER: [id number] Delfino SarmientoLTNIALL, [id number] 00:00:00* Test Item Value Reference Range Interpretation Comme nts CULTURE, URINE (test code = 09022) SPECIMEN NUMBER: [id number] Delfino SarmientoLTNIALL, [id number] 00:00:00* Test Item Value Reference Range Interpretation Comme nts CULTURE, URINE (test code = 00635) SPECIMEN NUMBER: [id number] Delfino OrtaVAGINAL PATHOGENS DNA [id number] 15:31:31* Test Item Value Reference Range Interpretation Comme nts DIANNA SPECIES (test code = 56055) NEGATIVE NEGATIVE G. VAGINALIS (test code = 89350) NEGATIVE NEGATIVE T. VAGINALIS (test code = 89364) NEGATIVE NEGATIVE UNLESS OTHERWISE INDICATED, ALL TESTING PERFORMED [facility] [address] [place] [address] SALES AND CUSTOMER RELATIONS REP: ALYSSIA FRASER M.D. CLIA NUMBER [id number] [facility] [place]. [id number] VAGINAL PATHOGENS DNA [id number] 00:00:00* Test Item Value Reference Range Interpretation Comme nts DIANNA SPECIES (test code = 28407) NEGATIVE G. VAGINALIS (test code = 40621) NEGATIVE T. VAGINALIS (test code = 30969) NEGATIVE Delfino Schumacher AustinVAGINAL PATHOGENS DNA [id number] 00:00:00* Test Item Value Reference Range Interpretation Comme nts DIANNA SPECIES (test code = 54118) NEGATIVE G. VAGINALIS (test code = 00274) NEGATIVE T. VAGINALIS (test code = 13765) NEGATIVE VAGINAL PATHOGENS DNA [id number] 00:00:00* Test Item Value Reference Range Interpretation Comme nts DIANNA SPECIES (test code = 59223) NEGATIVE G. VAGINALIS (test code = 88834) NEGATIVE T. VAGINALIS (test code = 13058) NEGATIVE VAGINAL PATHOGENS DNA [id number] 00:00:00* Test Item Value Reference Range Interpretation Comme nts DIANNA SPECIES (test code = 68317) NEGATIVE G. VAGINALIS (test code = 16495) NEGATIVE T. VAGINALIS (test code = 47286) NEGATIVE VAGINAL PATHOGENS DNA [id number] 00:00:00* Test Item Value Reference Range Interpretation Comme nts DIANNA SPECIES (test code = ) NEGATIVE G. VAGINALIS (test code = 64210) NEGATIVE T. VAGINALIS (test code = 66533) NEGATIVE VAGINAL PATHOGENS DNA [id number] 00:00:00* Test Item Value Reference Range Interpretation Comme nts DIANNA SPECIES (test code = ) NEGATIVE G. VAGINALIS (test code = 09131) NEGATIVE T. VAGINALIS (test code = 49965) NEGATIVE VAGINAL PATHOGENS DNA [id number] 00:00:00* Test Item Value Reference Range Interpretation Comme nts DIANNA SPECIES (test code = ) NEGATIVE G. VAGINALIS (test code = 30497) NEGATIVE T. VAGINALIS (test code = 66440) NEGATIVE VAGINAL PATHOGENS DNA [id number] 00:00:00* Test Item Value Reference Range Interpretation Comme nts DIANNA SPECIES (test code = ) NEGATIVE G. VAGINALIS (test code = 78962) NEGATIVE T. VAGINALIS (test code = 67306) NEGATIVE VAGINAL PATHOGENS DNA [id number] 00:00:00* Test Item Value Reference Range Interpretation Comme nts DIANNA SPECIES (test code = 60694) NEGATIVE G. VAGINALIS (test code = 18139) NEGATIVE T. VAGINALIS (test code = 22955) NEGATIVE Delfino F AustinVAGINAL PATHOGENS DNA [id number] 00:00:00* Test Item Value Reference Range Interpretation Comme nts DIANNA SPECIES (test code = 55060) NEGATIVE G. VAGINALIS (test code = 65372) NEGATIVE T. VAGINALIS (test code = 94883) NEGATIVE Delfino F AustinVAGINAL PATHOGENS DNA [id number] 00:00:00* Test Item Value Reference Range Interpretation Comme nts DIANNA SPECIES (test code = ) NEGATIVE G. VAGINALIS (test code = 58377) NEGATIVE T. VAGINALIS (test code = 95814) NEGATIVE Delfino Schumacher AustinVAGINAL PATHOGENS DNA [id number] 00:00:00* Test Item Value Reference Range Interpretation Comme nts DIANNA SPECIES (test code = 55400) NEGATIVE G. VAGINALIS (test code = 38012) NEGATIVE T. VAGINALIS (test code = 05022) NEGATIVE Delfino Schumacher AustinVAGINAL PATHOGENS DNA [id number] 00:00:00* Test Item Value Reference Range Interpretation Comme nts DIANNA SPECIES (test code = 79380) NEGATIVE G. VAGINALIS (test code = 06043) NEGATIVE T. VAGINALIS (test code = 94639) NEGATIVE Delfino Schumacher AustinVAGINAL PATHOGENS DNA [id number] 00:00:00* Test Item Value Reference Range Interpretation Comme nts DIANNA SPECIES (test code = 76124) NEGATIVE G. VAGINALIS (test code = 53260) NEGATIVE T. VAGINALIS (test code = 22521) NEGATIVE Delfino Schumacher AustinVAGINAL PATHOGENS DNA [id number] 00:00:00* Test Item Value Reference Range Interpretation Comme nts DIANNA SPECIES (test code = ) NEGATIVE G. VAGINALIS (test code = 52741) NEGATIVE T. VAGINALIS (test code = 90350) NEGATIVE Delfino OrtaCULTALLEGI[facility], [id number] 12:43:02SPECIMEN NUMBER: [id number] CULTURE, URINE SPECIMEN NUMBER: [id number] SPECIMEN COMMENT: URINE SOURCE: URINE REPORT STATUS: FINAL ISOLATE NUMBER 1: ORGANISM: 04/28/2021 10-50,000 CFU/ML ENTEROCOCCUS SPECIES (GROUP D) IDENTIFICATION: 04/29/2021 ENTEROCOCCUS SPECIES (GROUP D) ENTEROCOCCUS SP. AMPICILLIN SENSITIVE <=2CIPROFLOXACIN SENSITIVE <=1LEVOFLOXACIN SENSITIVE 1NITROFURANTOIN SENSITIVE <=32TETRACYCLINE RESISTANT >8VANCOMYCIN SENSITIVE 2 NOTE: NUMBERS DISPLAYED REPRESENT MINIMUM INHIBITORY CONCENTRATION (CHAYO) WHICH IS EXPRESSED IN MCG/ML. CULTURE, [id number] 00:00:00* Test Item Value Reference Range Interpretation Comme nts CULTURE, URINE (test code = 32662) SPECIMEN NUMBER: [id number] Delfino OrtaCULTURE, [id number] 00:00:00* Test Item Value Reference Range Interpretation Comme nts CULTURE, URINE (test code = 97292) SPECIMEN NUMBER: [id number] Delfino OrtaCULTNIALL, [id number] 00:00:00* Test Item Value Reference Range Interpretation Comme nts CULTURE, URINE (test code = 02020) SPECIMEN NUMBER: [id number] CULTURE, [id number] 00:00:00* Test Item Value Reference Range Interpretation Comme nts CULTURE, URINE (test code = 94282) SPECIMEN NUMBER: [id number] CULTURE, [id number] 00:00:00* Test Item Value Reference Range Interpretation Comme nts CULTURE, URINE (test code = 86988) SPECIMEN NUMBER: [id number] CULTURE, [id number] 00:00:00* Test Item Value Reference Range Interpretation Comme nts CULTURE, URINE (test code = 77838) SPECIMEN NUMBER: [id number] CULTURE, [id number] 00:00:00* Test Item Value Reference Range Interpretation Comme nts CULTURE, URINE (test code = 19451) SPECIMEN NUMBER: [id number] CULTURE, [id number] 00:00:00* Test Item Value Reference Range Interpretation Comme nts CULTURE, URINE (test code = 61434) SPECIMEN NUMBER: [id number] CULTURE, [id number] 00:00:00* Test Item Value Reference Range Interpretation Comme nts CULTURE, URINE (test code = 43587) SPECIMEN NUMBER: [id number] CULTURE, [id number] 00:00:00* Test Item Value Reference Range Interpretation Comme nts CULTURE, URINE (test code = 18336) SPECIMEN NUMBER: [id number] Delfino OrtaCULTURE, [id number] 00:00:00* Test Item Value Reference Range Interpretation Comme nts CULTURE, URINE (test code = 68494) SPECIMEN NUMBER: [id number] Delfino OrtaCULTURE, [id number] 00:00:00* Test Item Value Reference Range Interpretation Comme nts CULTURE, URINE (test code = 25533) SPECIMEN NUMBER: [id number] Delfino OrtaCULTURE, [id number] 00:00:00* Test Item Value Reference Range Interpretation Comme nts CULTURE, URINE (test code = 87656) SPECIMEN NUMBER: [id number] Delfino OrtaCULTURE, [id number] 00:00:00* Test Item Value Reference Range Interpretation Comme nts CULTURE, URINE (test code = 54821) SPECIMEN NUMBER: [id number] Delfino OrtaCULTURE, [id number] 00:00:00* Test Item Value Reference Range Interpretation Comme nts CULTURE, URINE (test code = 71264) SPECIMEN NUMBER: [id number] Delfino OrtaURINALYSIS WITH [id number] 07:51:12* Test Item Value Reference Range Interpretation Comme nts COLOR (test code = 1501) ORANGE YELLOW-STRAW A APPEARANCE (test code = 1502) CLOUDY CLEAR A SPECIFIC GRAVITY (test code = 1503) 1.020 1.005-1.035 LEUKOCYTE ESTERASE (test code = 1504) 2+ NEGATIVE A NITRITE (test code = 1505) NEGATIVE NEGATIVE pH (test code = 1506) 6.0 5.0-9.0 PROTEIN (test code = 1507) 3+ NEGATIVE A GLUCOSE (test code = 1508) NEGATIVE NEGATIVE KETONES (test code = 1509) NEGATIVE NEGATIVE UROBILINOGEN (test code = 1510) 0.2 MG/DL See_Comment [Automated [employer] ge] The system which generated this result transmitted reference range: <=2.0. The reference range was not used to interpret this result as normal/abnormal. BILIRUBIN (test code = 1511) NEGATIVE NEGATIVE OCCULT BLOOD (test code = 1512) 3+ NEGATIVE A WHITE BLOOD CELLS (test code = 1513) >50 /HPF 0-5 A RED BLOOD CELLS (test code = 1514) >50 /HPF 0-5 A EPITHELIAL CELLS (test code = 98063) 0-5 /HPF 0-10 BACTERIA (test code = 1515) 3+ NONE SEEN A CASTS, HYALINE (test code = 1517) TRACE NONE-TRACE UNLESS OTHERWISE INDICATED, ALL TESTING PERFORMED [facility] [address] [place] [address] SALES AND CUSTOMER RELATIONS REP: ALYSSIA FRASER M.D. CLIA NUMBER [id number] [facility]. [id number] URINALYSIS WITH [id number] 00:00:00* Test Item Value Reference Range Interpretation Comme nts COLOR (test code = 1501) ORANGE APPEARANCE (test code = 1502) CLOUDY SPECIFIC GRAVITY (test code = 1503) 1.020 LEUKOCYTE ESTERASE (test cod e = 1504) 2+ NITRITE (test code = 1505) NEGATIVE pH (test code = 1506) 6.0 PROTEIN (test code = 1507) 3+ GLUCOSE (test code = 1508) NEGATIVE KETONES (test code = 1509) NEGATIVE UROBILINOGEN (test code = 1510) 0.2 MG/DL BILIRUBIN (test code = 1511) NEGATIVE OCCULT BLOOD (test code = 1512) 3+ WHITE BLOOD CELLS (test code = 1513) >50 /HPF RED BLOOD CELLS (test code = 1514) >50 /HPF EPITHELIAL CELLS (test code = 01122) 0-5 /HPF BACTERIA (test code = 1515) 3+ CASTS, HYALINE (test code = 1517) TRACE Delfino Schumacher AustinURINALYSIS WITH [id number] 00:00:00* Test Item Value Reference Range Interpretation Comme nts COLOR (test code = 1501) ORANGE APPEARANCE (test code = 1502) CLOUDY SPECIFIC GRAVITY (test code = 1503) 1.020 LEUKOCYTE ESTERASE (test cod e = 1504) 2+ NITRITE (test code = 1505) NEGATIVE pH (test code = 1506) 6.0 PROTEIN (test code = 1507) 3+ GLUCOSE (test code = 1508) NEGATIVE KETONES (test code = 1509) NEGATIVE UROBILINOGEN (test code = 1510) 0.2 MG/DL BILIRUBIN (test code = 1511) NEGATIVE OCCULT BLOOD (test code = 1512) 3+ WHITE BLOOD CELLS (test code = 1513) >50 /HPF RED BLOOD CELLS (test code = 1514) >50 /HPF EPITHELIAL CELLS (test code = 86459) 0-5 /HPF BACTERIA (test code = 1515) 3+ CASTS, HYALINE (test code = 1517) TRACE URINALYSIS WITH [id number] 00:00:00* Test Item Value Reference Range Interpretation Comme nts COLOR (test code = 1501) ORANGE APPEARANCE (test code = 1502) CLOUDY SPECIFIC GRAVITY (test code = 1503) 1.020 LEUKOCYTE ESTERASE (test cod e = 1504) 2+ NITRITE (test code = 1505) NEGATIVE pH (test code = 1506) 6.0 PROTEIN (test code = 1507) 3+ GLUCOSE (test code = 1508) NEGATIVE KETONES (test code = 1509) NEGATIVE UROBILINOGEN (test code = 1510) 0.2 MG/DL BILIRUBIN (test code = 1511) NEGATIVE OCCULT BLOOD (test code = 1512) 3+ WHITE BLOOD CELLS (test code = 1513) >50 /HPF RED BLOOD CELLS (test code = 1514) >50 /HPF EPITHELIAL CELLS (test code = 92975) 0-5 /HPF BACTERIA (test code = 1515) 3+ CASTS, HYALINE (test code = 1517) TRACE URINALYSIS WITH [id number] 00:00:00* Test Item Value Reference Range Interpretation Comme nts COLOR (test code = 1501) ORANGE APPEARANCE (test code = 1502) CLOUDY SPECIFIC GRAVITY (test code = 1503) 1.020 LEUKOCYTE ESTERASE (test cod e = 1504) 2+ NITRITE (test code = 1505) NEGATIVE pH (test code = 1506) 6.0 PROTEIN (test code = 1507) 3+ GLUCOSE (test code = 1508) NEGATIVE KETONES (test code = 1509) NEGATIVE UROBILINOGEN (test code = 1510) 0.2 MG/DL BILIRUBIN (test code = 1511) NEGATIVE OCCULT BLOOD (test code = 1512) 3+ WHITE BLOOD CELLS (test code = 1513) >50 /HPF RED BLOOD CELLS (test code = 1514) >50 /HPF EPITHELIAL CELLS (test code = 47794) 0-5 /HPF BACTERIA (test code = 1515) 3+ CASTS, HYALINE (test code = 1517) TRACE URINALYSIS WITH [id number] 00:00:00* Test Item Value Reference Range Interpretation Comme nts COLOR (test code = 1501) ORANGE APPEARANCE (test code = 1502) CLOUDY SPECIFIC GRAVITY (test code = 1503) 1.020 LEUKOCYTE ESTERASE (test cod e = 1504) 2+ NITRITE (test code = 1505) NEGATIVE pH (test code = 1506) 6.0 PROTEIN (test code = 1507) 3+ GLUCOSE (test code = 1508) NEGATIVE KETONES (test code = 1509) NEGATIVE UROBILINOGEN (test code = 1510) 0.2 MG/DL BILIRUBIN (test code = 1511) NEGATIVE OCCULT BLOOD (test code = 1512) 3+ WHITE BLOOD CELLS (test code = 1513) >50 /HPF RED BLOOD CELLS (test code = 1514) >50 /HPF EPITHELIAL CELLS (test code = 85908) 0-5 /HPF BACTERIA (test code = 1515) 3+ CASTS, HYALINE (test code = 1517) TRACE URINALYSIS WITH [id number] 00:00:00* Test Item Value Reference Range Interpretation Comme nts COLOR (test code = 1501) ORANGE APPEARANCE (test code = 1502) CLOUDY SPECIFIC GRAVITY (test code = 1503) 1.020 LEUKOCYTE ESTERASE (test cod e = 1504) 2+ NITRITE (test code = 1505) NEGATIVE pH (test code = 1506) 6.0 PROTEIN (test code = 1507) 3+ GLUCOSE (test code = 1508) NEGATIVE KETONES (test code = 1509) NEGATIVE UROBILINOGEN (test code = 1510) 0.2 MG/DL BILIRUBIN (test code = 1511) NEGATIVE OCCULT BLOOD (test code = 1512) 3+ WHITE BLOOD CELLS (test code = 1513) >50 /HPF RED BLOOD CELLS (test code = 1514) >50 /HPF EPITHELIAL CELLS (test code = 85635) 0-5 /HPF BACTERIA (test code = 1515) 3+ CASTS, HYALINE (test code = 1517) TRACE URINALYSIS WITH [id number] 00:00:00* Test Item Value Reference Range Interpretation Comme nts COLOR (test code = 1501) ORANGE APPEARANCE (test code = 1502) CLOUDY SPECIFIC GRAVITY (test code = 1503) 1.020 LEUKOCYTE ESTERASE (test cod e = 1504) 2+ NITRITE (test code = 1505) NEGATIVE pH (test code = 1506) 6.0 PROTEIN (test code = 1507) 3+ GLUCOSE (test code = 1508) NEGATIVE KETONES (test code = 1509) NEGATIVE UROBILINOGEN (test code = 1510) 0.2 MG/DL BILIRUBIN (test code = 1511) NEGATIVE OCCULT BLOOD (test code = 1512) 3+ WHITE BLOOD CELLS (test code = 1513) >50 /HPF RED BLOOD CELLS (test code = 1514) >50 /HPF EPITHELIAL CELLS (test code = 68619) 0-5 /HPF BACTERIA (test code = 1515) 3+ CASTS, HYALINE (test code = 1517) TRACE URINALYSIS WITH [id number] 00:00:00* Test Item Value Reference Range Interpretation Comme nts COLOR (test code = 1501) ORANGE APPEARANCE (test code = 1502) CLOUDY SPECIFIC GRAVITY (test code = 1503) 1.020 LEUKOCYTE ESTERASE (test cod e = 1504) 2+ NITRITE (test code = 1505) NEGATIVE pH (test code = 1506) 6.0 PROTEIN (test code = 1507) 3+ GLUCOSE (test code = 1508) NEGATIVE KETONES (test code = 1509) NEGATIVE UROBILINOGEN (test code = 1510) 0.2 MG/DL BILIRUBIN (test code = 1511) NEGATIVE OCCULT BLOOD (test code = 1512) 3+ WHITE BLOOD CELLS (test code = 1513) >50 /HPF RED BLOOD CELLS (test code = 1514) >50 /HPF EPITHELIAL CELLS (test code = 92712) 0-5 /HPF BACTERIA (test code = 1515) 3+ CASTS, HYALINE (test code = 1517) TRACE URINALYSIS WITH [id number] 00:00:00* Test Item Value Reference Range Interpretation Comme nts COLOR (test code = 1501) ORANGE APPEARANCE (test code = 1502) CLOUDY SPECIFIC GRAVITY (test code = 1503) 1.020 LEUKOCYTE ESTERASE (test cod e = 1504) 2+ NITRITE (test code = 1505) NEGATIVE pH (test code = 1506) 6.0 PROTEIN (test code = 1507) 3+ GLUCOSE (test code = 1508) NEGATIVE KETONES (test code = 1509) NEGATIVE UROBILINOGEN (test code = 1510) 0.2 MG/DL BILIRUBIN (test code = 1511) NEGATIVE OCCULT BLOOD (test code = 1512) 3+ WHITE BLOOD CELLS (test code = 1513) >50 /HPF RED BLOOD CELLS (test code = 1514) >50 /HPF EPITHELIAL CELLS (test code = 86149) 0-5 /HPF BACTERIA (test code = 1515) 3+ CASTS, HYALINE (test code = 1517) TRACE Delfino Schumacher [place]UR[place]IS WITH [id number] 00:00:00* Test Item Value Reference Range Interpretation Comme nts COLOR (test code = 1501) ORANGE APPEARANCE (test code = 1502) CLOUDY SPECIFIC GRAVITY (test code = 1503) 1.020 LEUKOCYTE ESTERASE (test cod e = 1504) 2+ NITRITE (test code = 1505) NEGATIVE pH (test code = 1506) 6.0 PROTEIN (test code = 1507) 3+ GLUCOSE (test code = 1508) NEGATIVE KETONES (test code = 1509) NEGATIVE UROBILINOGEN (test code = 1510) 0.2 MG/DL BILIRUBIN (test code = 1511) NEGATIVE OCCULT BLOOD (test code = 1512) 3+ WHITE BLOOD CELLS (test code = 1513) >50 /HPF RED BLOOD CELLS (test code = 1514) >50 /HPF EPITHELIAL CELLS (test code = 48007) 0-5 /HPF BACTERIA (test code = 1515) 3+ CASTS, HYALINE (test code = 1517) TONY Schumacher [place] [id number] 00:00:00* Test Item Value Reference Range Interpretation Comme nts COLOR (test code = 1501) ORANGE APPEARANCE (test code = 1502) CLOUDY SPECIFIC GRAVITY (test code = 1503) 1.020 LEUKOCYTE ESTERASE (test cod e = 1504) 2+ NITRITE (test code = 1505) NEGATIVE pH (test code = 1506) 6.0 PROTEIN (test code = 1507) 3+ GLUCOSE (test code = 1508) NEGATIVE KETONES (test code = 1509) NEGATIVE UROBILINOGEN (test code = 1510) 0.2 MG/DL BILIRUBIN (test code = 1511) NEGATIVE OCCULT BLOOD (test code = 1512) 3+ WHITE BLOOD CELLS (test code = 1513) >50 /HPF RED BLOOD CELLS (test code = 1514) >50 /HPF EPITHELIAL CELLS (test code = 83454) 0-5 /HPF BACTERIA (test code = 1515) 3+ CASTS, HYALINE (test code = 1517) TONY Schumacher [place] WITH [id number] 00:00:00* Test Item Value Reference Range Interpretation Comme nts COLOR (test code = 1501) ORANGE APPEARANCE (test code = 1502) CLOUDY SPECIFIC GRAVITY (test code = 1503) 1.020 LEUKOCYTE ESTERASE (test cod e = 1504) 2+ NITRITE (test code = 1505) NEGATIVE pH (test code = 1506) 6.0 PROTEIN (test code = 1507) 3+ GLUCOSE (test code = 1508) NEGATIVE KETONES (test code = 1509) NEGATIVE UROBILINOGEN (test code = 1510) 0.2 MG/DL BILIRUBIN (test code = 1511) NEGATIVE OCCULT BLOOD (test code = 1512) 3+ WHITE BLOOD CELLS (test code = 1513) >50 /HPF RED BLOOD CELLS (test code = 1514) >50 /HPF EPITHELIAL CELLS (test code = 79873) 0-5 /HPF BACTERIA (test code = 1515) 3+ CASTS, HYALINE (test code = 1517) TONY Schumacher [place] WITH [id number] 00:00:00* Test Item Value Reference Range Interpretation Comme nts COLOR (test code = 1501) ORANGE APPEARANCE (test code = 1502) CLOUDY SPECIFIC GRAVITY (test code = 1503) 1.020 LEUKOCYTE ESTERASE (test cod e = 1504) 2+ NITRITE (test code = 1505) NEGATIVE pH (test code = 1506) 6.0 PROTEIN (test code = 1507) 3+ GLUCOSE (test code = 1508) NEGATIVE KETONES (test code = 1509) NEGATIVE UROBILINOGEN (test code = 1510) 0.2 MG/DL BILIRUBIN (test code = 1511) NEGATIVE OCCULT BLOOD (test code = 1512) 3+ WHITE BLOOD CELLS (test code = 1513) >50 /HPF RED BLOOD CELLS (test code = 1514) >50 /HPF EPITHELIAL CELLS (test code = 70737) 0-5 /HPF BACTERIA (test code = 1515) 3+ CASTS, HYALINE (test code = 1517) TONY Schumacher [place] WITH [id number] 00:00:00* Test Item Value Reference Range Interpretation Comme nts COLOR (test code = 1501) ORANGE APPEARANCE (test code = 1502) CLOUDY SPECIFIC GRAVITY (test code = 1503) 1.020 LEUKOCYTE ESTERASE (test cod e = 1504) 2+ NITRITE (test code = 1505) NEGATIVE pH (test code = 1506) 6.0 PROTEIN (test code = 1507) 3+ GLUCOSE (test code = 1508) NEGATIVE KETONES (test code = 1509) NEGATIVE UROBILINOGEN (test code = 1510) 0.2 MG/DL BILIRUBIN (test code = 1511) NEGATIVE OCCULT BLOOD (test code = 1512) 3+ WHITE BLOOD CELLS (test code = 1513) >50 /HPF RED BLOOD CELLS (test code = 1514) >50 /HPF EPITHELIAL CELLS (test code = 29797) 0-5 /HPF BACTERIA (test code = 1515) 3+ CASTS, HYALINE (test code = 1517) TRACE eDlfino Schumacher AustinURINALYSIS WITH [id number] 00:00:00* Test Item Value Reference Range Interpretation Comme nts COLOR (test code = 1501) ORANGE APPEARANCE (test code = 1502) CLOUDY SPECIFIC GRAVITY (test code = 1503) 1.020 LEUKOCYTE ESTERASE (test cod e = 1504) 2+ NITRITE (test code = 1505) NEGATIVE pH (test code = 1506) 6.0 PROTEIN (test code = 1507) 3+ GLUCOSE (test code = 1508) NEGATIVE KETONES (test code = 1509) NEGATIVE UROBILINOGEN (test code = 1510) 0.2 MG/DL BILIRUBIN (test code = 1511) NEGATIVE OCCULT BLOOD (test code = 1512) 3+ WHITE BLOOD CELLS (test code = 1513) >50 /HPF RED BLOOD CELLS (test code = 1514) >50 /HPF EPITHELIAL CELLS (test code = 51138) 0-5 /HPF BACTERIA (test code = 1515) 3+ CASTS, HYALINE (test code = 1517) TRACE Delfino Schumacher AustinLIPID [id number] 00:00:00* Test Item Value Reference Range Interpretation Comme nts CHOLESTEROL (test code = 2210) 174 MG/DL TRIGLYCERIDES (test code = 2232) 63 MG/DL HDL CHOLESTEROL (test code = 2220) 87 MG/DL CALC LDL CHOL (test code = 2237) 73 MG/DL RISK RATIO LDL/HDL (test cod e = 2238) 0.84 RATIO Delfino OrtaCOMPREHENSIVE METABOLIC [id number] 00:00:00* Test Item Value Reference Range Interpretation Comme nts GLUCOSE (test code = 2217) 80 MG/DL BUN (test code = 2208) 18 MG/DL CREATININE (test code = 2214) 1.06 MG/DL eGFR AMER. (test cod e = 83666) 67 ML/MIN/1.73 eGFR NON- AMER. (test code = 19437) 58 ML/MIN/1.73 CALC BUN/CREAT (test code = 2235) 17 RATIO SODIUM (test code = 2231) 139 MEQ/L POTASSIUM (test code = 2228) 3.8 MEQ/L CHLORIDE (test code = 2215) 109 MEQ/L CARBON DIOXIDE (test code = 2206) 20 MEQ/L CALCIUM (test code = 2209) 9.9 MG/DL PROTEIN, TOTAL (test code = 2229) 9.8 G/DL ALBUMIN (test code = 2201) 3.9 G/DL CALC GLOBULIN (test code = 2240) 5.9 G/DL CALC A/G RATIO (test code = 2234) 0.7 RATIO BILIRUBIN, TOTAL (test code = 2207) 0.2 MG/DL ALKALINE PHOSPHATASE (test code = 2204) 79 U/L AST (test code = 2218) 75 U/L ALT (test code = 2219) 54 U/L Delfino Schumacher [facility] W/AUTO [id number] 00:00:00* Test Item Value Reference Range Interpretation Comme nts WBC (test code = 1001) 2.1 K/UL [...] = 1013) 1.5 % IMMATURE GRANULOCYTES (test code = 1036) 0.5 % NUCLEATED RBCS (test code = 1065) 0.0 /100WBC'S PLATELET COUNT (test code = 1015) 181 K/UL ABSOLUTE NEUTROPHILS (test c ode = 1066) 0.53 K/UL ABSOLUTE LYMPHOCYTES (test c ode = 1067) 1.16 K/UL ABSOLUTE MONOCYTES (test cod e = 1068) 0.26 K/UL ABSOLUTE EOSINOPHILS (test c ode = 1040) 0.07 K/UL ABSOLUTE BASOPHILS (test cod e = 1069) 0.03 K/UL ABS IMMATURE GRANULOCYTES (t est code = 1020) 0.01 K/UL ABS NUCLEATED RBCS (test cod e = 54603) 0.00 K/UL COMMENTS (test code = 1016) (NOTE) Delfino OrtaLIPID [id number] 00:00:00* Test Item Value Reference Range Interpretation Comme nts CHOLESTEROL (test code = 2210) 174 MG/DL TRIGLYCERIDES (test code = 2232) 63 MG/DL HDL CHOLESTEROL (test code = 2220) 87 MG/DL CALC LDL CHOL (test code = 2237) 73 MG/DL RISK RATIO LDL/HDL (test cod e = 2238) 0.84 RATIO Delfino OrtaCBC W/AUTO [id number] 00:00:00* Test Item Value Reference Range Interpretation Comme nts WBC (test code = 1001) 2.1 K/UL [...] = 1013) 1.5 % IMMATURE GRANULOCYTES (test code = 1036) 0.5 % NUCLEATED RBCS (test code = 1065) 0.0 /100WBC'S PLATELET COUNT (test code = 1015) 181 K/UL ABSOLUTE NEUTROPHILS (test c ode = 1066) 0.53 K/UL ABSOLUTE LYMPHOCYTES (test c ode = 1067) 1.16 K/UL ABSOLUTE MONOCYTES (test cod e = 1068) 0.26 K/UL ABSOLUTE EOSINOPHILS (test c ode = 1040) 0.07 K/UL ABSOLUTE BASOPHILS (test cod e = 1069) 0.03 K/UL ABS IMMATURE GRANULOCYTES (t est code = 1020) 0.01 K/UL ABS NUCLEATED RBCS (test cod e = 78843) 0.00 K/UL COMMENTS (test code = 1016) (NOTE) CBC W/AUTO [id number] 00:00:00* Test Item Value Reference Range Interpretation Comme nts WBC (test code = 1001) 2.1 K/UL [...] = 1013) 1.5 % IMMATURE GRANULOCYTES (test code = 1036) 0.5 % NUCLEATED RBCS (test code = 1065) 0.0 /100WBC'S PLATELET COUNT (test code = 1015) 181 K/UL ABSOLUTE NEUTROPHILS (test c ode = 1066) 0.53 K/UL ABSOLUTE LYMPHOCYTES (test c ode = 1067) 1.16 K/UL ABSOLUTE MONOCYTES (test cod e = 1068) 0.26 K/UL ABSOLUTE EOSINOPHILS (test c ode = 1040) 0.07 K/UL ABSOLUTE BASOPHILS (test cod e = 1069) 0.03 K/UL ABS IMMATURE GRANULOCYTES (t est code = 1020) 0.01 K/UL ABS NUCLEATED RBCS (test cod e = 83872) 0.00 K/UL COMMENTS (test code = 1016) (NOTE) CBC W/AUTO [id number] 00:00:00* Test Item Value Reference Range Interpretation Comme nts WBC (test code = 1001) 2.1 K/UL [...] = 1013) 1.5 % IMMATURE GRANULOCYTES (test code = 1036) 0.5 % NUCLEATED RBCS (test code = 1065) 0.0 /100WBC'S PLATELET COUNT (test code = 1015) 181 K/UL ABSOLUTE NEUTROPHILS (test c ode = 1066) 0.53 K/UL ABSOLUTE LYMPHOCYTES (test c ode = 1067) 1.16 K/UL ABSOLUTE MONOCYTES (test cod e = 1068) 0.26 K/UL ABSOLUTE EOSINOPHILS (test c ode = 1040) 0.07 K/UL ABSOLUTE BASOPHILS (test cod e = 1069) 0.03 K/UL ABS IMMATURE GRANULOCYTES (t est code = 1020) 0.01 K/UL ABS NUCLEATED RBCS (test cod e = 75550) 0.00 K/UL COMMENTS (test code = 1016) (NOTE) LIPID [id number] 00:00:00* Test Item Value Reference Range Interpretation Comme nts CHOLESTEROL (test code = 2210) 174 MG/DL TRIGLYCERIDES (test code = 2232) 63 MG/DL HDL CHOLESTEROL (test code = 2220) 87 MG/DL CALC LDL CHOL (test code = 2237) 73 MG/DL RISK RATIO LDL/HDL (test cod e = 2238) 0.84 RATIO LIPID [id number] 00:00:00* Test Item Value Reference Range Interpretation Comme nts CHOLESTEROL (test code = 2210) 174 MG/DL TRIGLYCERIDES (test code = 2232) 63 MG/DL HDL CHOLESTEROL (test code = 2220) 87 MG/DL CALC LDL CHOL (test code = 2237) 73 MG/DL RISK RATIO LDL/HDL (test cod e = 2238) 0.84 RATIO COMPREHENSIVE METABOLIC [id number] 00:00:00* Test Item Value Reference Range Interpretation Comme nts GLUCOSE (test code = 2217) 80 MG/DL BUN (test code = 2208) 18 MG/DL CREATININE (test code = 2214) 1.06 MG/DL eGFR AMER. (test cod e = 41667) 67 ML/MIN/1.73 eGFR NON- AMER. (test code = 79767) 58 ML/MIN/1.73 CALC BUN/CREAT (test code = 2235) 17 RATIO SODIUM (test code = 2231) 139 MEQ/L POTASSIUM (test code = 2228) 3.8 MEQ/L CHLORIDE (test code = 2215) 109 MEQ/L CARBON DIOXIDE (test code = 2206) 20 MEQ/L CALCIUM (test code = 2209) 9.9 MG/DL PROTEIN, TOTAL (test code = 2229) 9.8 G/DL ALBUMIN (test code = 2201) 3.9 G/DL CALC GLOBULIN (test code = 2240) 5.9 G/DL CALC A/G RATIO (test code = 2234) 0.7 RATIO BILIRUBIN, TOTAL (test code = 2207) 0.2 MG/DL ALKALINE PHOSPHATASE (test code = 2204) 79 U/L AST (test code = 2218) 75 U/L ALT (test code = 2219) 54 U/L COMPREHENSIVE METABOLIC [id number] 00:00:00* Test Item Value Reference Range Interpretation Comme nts GLUCOSE (test code = 2217) 80 MG/DL BUN (test code = 2208) 18 MG/DL CREATININE (test code = 2214) 1.06 MG/DL eGFR AMER. (test cod e = 62627) 67 ML/MIN/1.73 eGFR NON- AMER. (test code = 71414) 58 ML/MIN/1.73 CALC BUN/CREAT (test code = 2235) 17 RATIO SODIUM (test code = 2231) 139 MEQ/L POTASSIUM (test code = 2228) 3.8 MEQ/L CHLORIDE (test code = 2215) 109 MEQ/L CARBON DIOXIDE (test code = 2206) 20 MEQ/L CALCIUM (test code = 2209) 9.9 MG/DL PROTEIN, TOTAL (test code = 2229) 9.8 G/DL ALBUMIN (test code = 2201) 3.9 G/DL CALC GLOBULIN (test code = 2240) 5.9 G/DL CALC A/G RATIO (test code = 2234) 0.7 RATIO BILIRUBIN, TOTAL (test code = 2207) 0.2 MG/DL ALKALINE PHOSPHATASE (test code = 2204) 79 U/L AST (test code = 2218) 75 U/L ALT (test code = 2219) 54 U/L CBC W/AUTO [id number] 00:00:00* Test Item Value Reference Range Interpretation Comme nts WBC (test code = 1001) 2.1 K/UL [...] = 1013) 1.5 % IMMATURE GRANULOCYTES (test code = 1036) 0.5 % NUCLEATED RBCS (test code = 1065) 0.0 /100WBC'S PLATELET COUNT (test code = 1015) 181 K/UL ABSOLUTE NEUTROPHILS (test c ode = 1066) 0.53 K/UL ABSOLUTE LYMPHOCYTES (test c ode = 1067) 1.16 K/UL ABSOLUTE MONOCYTES (test cod e = 1068) 0.26 K/UL ABSOLUTE EOSINOPHILS (test c ode = 1040) 0.07 K/UL ABSOLUTE BASOPHILS (test cod e = 1069) 0.03 K/UL ABS IMMATURE GRANULOCYTES (t est code = 1020) 0.01 K/UL ABS NUCLEATED RBCS (test cod e = 71787) 0.00 K/UL COMMENTS (test code = 1016) (NOTE) CBC W/AUTO [id number] 00:00:00* Test Item Value Reference Range Interpretation Comme nts WBC (test code = 1001) 2.1 K/UL [...] = 1013) 1.5 % IMMATURE GRANULOCYTES (test code = 1036) 0.5 % NUCLEATED RBCS (test code = 1065) 0.0 /100WBC'S PLATELET COUNT (test code = 1015) 181 K/UL ABSOLUTE NEUTROPHILS (test c ode = 1066) 0.53 K/UL ABSOLUTE LYMPHOCYTES (test c ode = 1067) 1.16 K/UL ABSOLUTE MONOCYTES (test cod e = 1068) 0.26 K/UL ABSOLUTE EOSINOPHILS (test c ode = 1040) 0.07 K/UL ABSOLUTE BASOPHILS (test cod e = 1069) 0.03 K/UL ABS IMMATURE GRANULOCYTES (t est code = 1020) 0.01 K/UL ABS NUCLEATED RBCS (test cod e = 75342) 0.00 K/UL COMMENTS (test code = 1016) (NOTE) CBC W/AUTO [id number] 00:00:00* Test Item Value Reference Range Interpretation Comme nts WBC (test code = 1001) 2.1 K/UL [...] = 1013) 1.5 % IMMATURE GRANULOCYTES (test code = 1036) 0.5 % NUCLEATED RBCS (test code = 1065) 0.0 /100WBC'S PLATELET COUNT (test code = 1015) 181 K/UL ABSOLUTE NEUTROPHILS (test c ode = 1066) 0.53 K/UL ABSOLUTE LYMPHOCYTES (test c ode = 1067) 1.16 K/UL ABSOLUTE MONOCYTES (test cod e = 1068) 0.26 K/UL ABSOLUTE EOSINOPHILS (test c ode = 1040) 0.07 K/UL ABSOLUTE BASOPHILS (test cod e = 1069) 0.03 K/UL ABS IMMATURE GRANULOCYTES (t est code = 1020) 0.01 K/UL ABS NUCLEATED RBCS (test cod e = 19191) 0.00 K/UL COMMENTS (test code = 1016) (NOTE) LIPID [id number] 00:00:00* Test Item Value Reference Range Interpretation Comme nts CHOLESTEROL (test code = 2210) 174 MG/DL TRIGLYCERIDES (test code = 2232) 63 MG/DL HDL CHOLESTEROL (test code = 2220) 87 MG/DL CALC LDL CHOL (test code = 2237) 73 MG/DL RISK RATIO LDL/HDL (test cod e = 2238) 0.84 RATIO LIPID [id number] 00:00:00* Test Item Value Reference Range Interpretation Comme nts CHOLESTEROL (test code = 2210) 174 MG/DL TRIGLYCERIDES (test code = 2232) 63 MG/DL HDL CHOLESTEROL (test code = 2220) 87 MG/DL CALC LDL CHOL (test code = 2237) 73 MG/DL RISK RATIO LDL/HDL (test cod e = 2238) 0.84 RATIO COMPREHENSIVE METABOLIC [id number] 00:00:00* Test Item Value Reference Range Interpretation Comme nts GLUCOSE (test code = 2217) 80 MG/DL BUN (test code = 2208) 18 MG/DL CREATININE (test code = 2214) 1.06 MG/DL eGFR AMER. (test cod e = 53796) 67 ML/MIN/1.73 eGFR NON- AMER. (test code = 23928) 58 ML/MIN/1.73 CALC BUN/CREAT (test code = 2235) 17 RATIO SODIUM (test code = 2231) 139 MEQ/L POTASSIUM (test code = 2228) 3.8 MEQ/L CHLORIDE (test code = 2215) 109 MEQ/L CARBON DIOXIDE (test code = 2206) 20 MEQ/L CALCIUM (test code = 2209) 9.9 MG/DL PROTEIN, TOTAL (test code = 2229) 9.8 G/DL ALBUMIN (test code = 2201) 3.9 G/DL CALC GLOBULIN (test code = 2240) 5.9 G/DL CALC A/G RATIO (test code = 2234) 0.7 RATIO BILIRUBIN, TOTAL (test code = 2207) 0.2 MG/DL ALKALINE PHOSPHATASE (test code = 2204) 79 U/L AST (test code = 2218) 75 U/L ALT (test code = 2219) 54 U/L COMPREHENSIVE METABOLIC [id number] 00:00:00* Test Item Value Reference Range Interpretation Comme nts GLUCOSE (test code = 2217) 80 MG/DL BUN (test code = 2208) 18 MG/DL CREATININE (test code = 2214) 1.06 MG/DL eGFR AMER. (test cod e = 01133) 67 ML/MIN/1.73 eGFR NON- AMER. (test code = 69471) 58 ML/MIN/1.73 CALC BUN/CREAT (test code = 2235) 17 RATIO SODIUM (test code = 2231) 139 MEQ/L POTASSIUM (test code = 2228) 3.8 MEQ/L CHLORIDE (test code = 2215) 109 MEQ/L CARBON DIOXIDE (test code = 2206) 20 MEQ/L CALCIUM (test code = 2209) 9.9 MG/DL PROTEIN, TOTAL (test code = 2229) 9.8 G/DL ALBUMIN (test code = 2201) 3.9 G/DL CALC GLOBULIN (test code = 2240) 5.9 G/DL CALC A/G RATIO (test code = 2234) 0.7 RATIO BILIRUBIN, TOTAL (test code = 2207) 0.2 MG/DL ALKALINE PHOSPHATASE (test code = 2204) 79 U/L AST (test code = 2218) 75 U/L ALT (test code = 2219) 54 U/L CBC W/AUTO [id number] 00:00:00* Test Item Value Reference Range Interpretation Comme nts WBC (test code = 1001) 2.1 K/UL [...] = 1013) 1.5 % IMMATURE GRANULOCYTES (test code = 1036) 0.5 % NUCLEATED RBCS (test code = 1065) 0.0 /100WBC'S PLATELET COUNT (test code = 1015) 181 K/UL ABSOLUTE NEUTROPHILS (test c ode = 1066) 0.53 K/UL ABSOLUTE LYMPHOCYTES (test c ode = 1067) 1.16 K/UL ABSOLUTE MONOCYTES (test cod e = 1068) 0.26 K/UL ABSOLUTE EOSINOPHILS (test c ode = 1040) 0.07 K/UL ABSOLUTE BASOPHILS (test cod e = 1069) 0.03 K/UL ABS IMMATURE GRANULOCYTES (t est code = 1020) 0.01 K/UL ABS NUCLEATED RBCS (test cod e = 96116) 0.00 K/UL COMMENTS (test code = 1016) (NOTE) CBC W/AUTO [id number] 00:00:00* Test Item Value Reference Range Interpretation Comme nts WBC (test code = 1001) 2.1 K/UL [...] = 1013) 1.5 % IMMATURE GRANULOCYTES (test code = 1036) 0.5 % NUCLEATED RBCS (test code = 1065) 0.0 /100WBC'S PLATELET COUNT (test code = 1015) 181 K/UL ABSOLUTE NEUTROPHILS (test c ode = 1066) 0.53 K/UL ABSOLUTE LYMPHOCYTES (test c ode = 1067) 1.16 K/UL ABSOLUTE MONOCYTES (test cod e = 1068) 0.26 K/UL ABSOLUTE EOSINOPHILS (test c ode = 1040) 0.07 K/UL ABSOLUTE BASOPHILS (test cod e = 1069) 0.03 K/UL ABS IMMATURE GRANULOCYTES (t est code = 1020) 0.01 K/UL ABS NUCLEATED RBCS (test cod e = 26193) 0.00 K/UL COMMENTS (test code = 1016) (NOTE) LIPID [id number] 00:00:00* Test Item Value Reference Range Interpretation Comme nts CHOLESTEROL (test code = 2210) 174 MG/DL TRIGLYCERIDES (test code = 2232) 63 MG/DL HDL CHOLESTEROL (test code = 2220) 87 MG/DL CALC LDL CHOL (test code = 2237) 73 MG/DL RISK RATIO LDL/HDL (test cod e = 2238) 0.84 RATIO COMPREHENSIVE METABOLIC [id number] 00:00:00* Test Item Value Reference Range Interpretation Comme nts GLUCOSE (test code = 2217) 80 MG/DL BUN (test code = 2208) 18 MG/DL CREATININE (test code = 2214) 1.06 MG/DL eGFR AMER. (test cod e = 91657) 67 ML/MIN/1.73 eGFR NON- AMER. (test code = 30823) 58 ML/MIN/1.73 CALC BUN/CREAT (test code = 2235) 17 RATIO SODIUM (test code = 2231) 139 MEQ/L POTASSIUM (test code = 2228) 3.8 MEQ/L CHLORIDE (test code = 2215) 109 MEQ/L CARBON DIOXIDE (test code = 2206) 20 MEQ/L CALCIUM (test code = 2209) 9.9 MG/DL PROTEIN, TOTAL (test code = 2229) 9.8 G/DL ALBUMIN (test code = 2201) 3.9 G/DL CALC GLOBULIN (test code = 2240) 5.9 G/DL CALC A/G RATIO (test code = 2234) 0.7 RATIO BILIRUBIN, TOTAL (test code = 2207) 0.2 MG/DL ALKALINE PHOSPHATASE (test code = 2204) 79 U/L AST (test code = 2218) 75 U/L ALT (test code = 2219) 54 U/L CBC W/AUTO [id number] 00:00:00* Test Item Value Reference Range Interpretation Comme nts WBC (test code = 1001) 2.1 K/UL [...] = 1013) 1.5 % IMMATURE GRANULOCYTES (test code = 1036) 0.5 % NUCLEATED RBCS (test code = 1065) 0.0 /100WBC'S PLATELET COUNT (test code = 1015) 181 K/UL ABSOLUTE NEUTROPHILS (test c ode = 1066) 0.53 K/UL ABSOLUTE LYMPHOCYTES (test c ode = 1067) 1.16 K/UL ABSOLUTE MONOCYTES (test cod e = 1068) 0.26 K/UL ABSOLUTE EOSINOPHILS (test c ode = 1040) 0.07 K/UL ABSOLUTE BASOPHILS (test cod e = 1069) 0.03 K/UL ABS IMMATURE GRANULOCYTES (t est code = 1020) 0.01 K/UL ABS NUCLEATED RBCS (test cod e = 83295) 0.00 K/UL COMMENTS (test code = 1016) (NOTE) CBC W/AUTO [id number] 00:00:00* Test Item Value Reference Range Interpretation Comme nts WBC (test code = 1001) 2.1 K/UL [...] = 1013) 1.5 % IMMATURE GRANULOCYTES (test code = 1036) 0.5 % NUCLEATED RBCS (test code = 1065) 0.0 /100WBC'S PLATELET COUNT (test code = 1015) 181 K/UL ABSOLUTE NEUTROPHILS (test c ode = 1066) 0.53 K/UL ABSOLUTE LYMPHOCYTES (test c ode = 1067) 1.16 K/UL ABSOLUTE MONOCYTES (test cod e = 1068) 0.26 K/UL ABSOLUTE EOSINOPHILS (test c ode = 1040) 0.07 K/UL ABSOLUTE BASOPHILS (test cod e = 1069) 0.03 K/UL ABS IMMATURE GRANULOCYTES (t est code = 1020) 0.01 K/UL ABS NUCLEATED RBCS (test cod e = 50884) 0.00 K/UL COMMENTS (test code = 1016) (NOTE) CBC W/AUTO [id number] 00:00:00* Test Item Value Reference Range Interpretation Comme nts WBC (test code = 1001) 2.1 K/UL [...] = 1013) 1.5 % IMMATURE GRANULOCYTES (test code = 1036) 0.5 % NUCLEATED RBCS (test code = 1065) 0.0 /100WBC'S PLATELET COUNT (test code = 1015) 181 K/UL ABSOLUTE NEUTROPHILS (test c ode = 1066) 0.53 K/UL ABSOLUTE LYMPHOCYTES (test c ode = 1067) 1.16 K/UL ABSOLUTE MONOCYTES (test cod e = 1068) 0.26 K/UL ABSOLUTE EOSINOPHILS (test c ode = 1040) 0.07 K/UL ABSOLUTE BASOPHILS (test cod e = 1069) 0.03 K/UL ABS IMMATURE GRANULOCYTES (t est code = 1020) 0.01 K/UL ABS NUCLEATED RBCS (test cod e = 56617) 0.00 K/UL COMMENTS (test code = 1016) (NOTE) LIPID [id number] 00:00:00* Test Item Value Reference Range Interpretation Comme nts CHOLESTEROL (test code = 2210) 174 MG/DL TRIGLYCERIDES (test code = 2232) 63 MG/DL HDL CHOLESTEROL (test code = 2220) 87 MG/DL CALC LDL CHOL (test code = 2237) 73 MG/DL RISK RATIO LDL/HDL (test cod e = 2238) 0.84 RATIO LIPID [id number] 00:00:00* Test Item Value Reference Range Interpretation Comme nts CHOLESTEROL (test code = 2210) 174 MG/DL TRIGLYCERIDES (test code = 2232) 63 MG/DL HDL CHOLESTEROL (test code = 2220) 87 MG/DL CALC LDL CHOL (test code = 2237) 73 MG/DL RISK RATIO LDL/HDL (test cod e = 2238) 0.84 RATIO COMPREHENSIVE METABOLIC [id number] 00:00:00* Test Item Value Reference Range Interpretation Comme nts GLUCOSE (test code = 2217) 80 MG/DL BUN (test code = 2208) 18 MG/DL CREATININE (test code = 2214) 1.06 MG/DL eGFR AMER. (test cod e = 94497) 67 ML/MIN/1.73 eGFR NON- AMER. (test code = 67158) 58 ML/MIN/1.73 CALC BUN/CREAT (test code = 2235) 17 RATIO SODIUM (test code = 2231) 139 MEQ/L POTASSIUM (test code = 2228) 3.8 MEQ/L CHLORIDE (test code = 2215) 109 MEQ/L CARBON DIOXIDE (test code = 2206) 20 MEQ/L CALCIUM (test code = 2209) 9.9 MG/DL PROTEIN, TOTAL (test code = 2229) 9.8 G/DL ALBUMIN (test code = 2201) 3.9 G/DL CALC GLOBULIN (test code = 2240) 5.9 G/DL CALC A/G RATIO (test code = 2234) 0.7 RATIO BILIRUBIN, TOTAL (test code = 2207) 0.2 MG/DL ALKALINE PHOSPHATASE (test code = 2204) 79 U/L AST (test code = 2218) 75 U/L ALT (test code = 2219) 54 U/L COMPREHENSIVE METABOLIC [id number] 00:00:00* Test Item Value Reference Range Interpretation Comme nts GLUCOSE (test code = 2217) 80 MG/DL BUN (test code = 2208) 18 MG/DL CREATININE (test code = 2214) 1.06 MG/DL eGFR AMER. (test cod e = 26950) 67 ML/MIN/1.73 eGFR NON- AMER. (test code = 61312) 58 ML/MIN/1.73 CALC BUN/CREAT (test code = 2235) 17 RATIO SODIUM (test code = 2231) 139 MEQ/L POTASSIUM (test code = 2228) 3.8 MEQ/L CHLORIDE (test code = 2215) 109 MEQ/L CARBON DIOXIDE (test code = 2206) 20 MEQ/L CALCIUM (test code = 2209) 9.9 MG/DL PROTEIN, TOTAL (test code = 2229) 9.8 G/DL ALBUMIN (test code = 2201) 3.9 G/DL CALC GLOBULIN (test code = 2240) 5.9 G/DL CALC A/G RATIO (test code = 2234) 0.7 RATIO BILIRUBIN, TOTAL (test code = 2207) 0.2 MG/DL ALKALINE PHOSPHATASE (test code = 2204) 79 U/L AST (test code = 2218) 75 U/L ALT (test code = 2219) 54 U/L COMPREHENSIVE METABOLIC [id number] 00:00:00* Test Item Value Reference Range Interpretation Comme nts GLUCOSE (test code = 2217) 80 MG/DL BUN (test code = 2208) 18 MG/DL CREATININE (test code = 2214) 1.06 MG/DL eGFR AMER. (test cod e = 18710) 67 ML/MIN/1.73 eGFR NON- AMER. (test code = 68444) 58 ML/MIN/1.73 CALC BUN/CREAT (test code = 2235) 17 RATIO SODIUM (test code = 2231) 139 MEQ/L POTASSIUM (test code = 2228) 3.8 MEQ/L CHLORIDE (test code = 2215) 109 MEQ/L CARBON DIOXIDE (test code = 2206) 20 MEQ/L CALCIUM (test code = 2209) 9.9 MG/DL PROTEIN, TOTAL (test code = 2229) 9.8 G/DL ALBUMIN (test code = 2201) 3.9 G/DL CALC GLOBULIN (test code = 2240) 5.9 G/DL CALC A/G RATIO (test code = 2234) 0.7 RATIO BILIRUBIN, TOTAL (test code = 2207) 0.2 MG/DL ALKALINE PHOSPHATASE (test code = 2204) 79 U/L AST (test code = 2218) 75 U/L ALT (test code = 2219) 54 U/L Delfino Schumacher [facility] W/AUTO [id number] 00:00:00* Test Item Value Reference Range Interpretation Comme nts WBC (test code = 1001) 2.1 K/UL [...] = 1013) 1.5 % IMMATURE GRANULOCYTES (test code = 1036) 0.5 % NUCLEATED RBCS (test code = 1065) 0.0 /100WBC'S PLATELET COUNT (test code = 1015) 181 K/UL ABSOLUTE NEUTROPHILS (test c ode = 1066) 0.53 K/UL ABSOLUTE LYMPHOCYTES (test c ode = 1067) 1.16 K/UL ABSOLUTE MONOCYTES (test cod e = 1068) 0.26 K/UL ABSOLUTE EOSINOPHILS (test c ode = 1040) 0.07 K/UL ABSOLUTE BASOPHILS (test cod e = 1069) 0.03 K/UL ABS IMMATURE GRANULOCYTES (t est code = 1020) 0.01 K/UL ABS NUCLEATED RBCS (test cod e = 40096) 0.00 K/UL COMMENTS (test code = 1016) (NOTE) Delfino OrtaCBC W/AUTO [id number] 00:00:00* Test Item Value Reference Range Interpretation Comme nts WBC (test code = 1001) 2.1 K/UL [...] = 1013) 1.5 % IMMATURE GRANULOCYTES (test code = 1036) 0.5 % NUCLEATED RBCS (test code = 1065) 0.0 /100WBC'S PLATELET COUNT (test code = 1015) 181 K/UL ABSOLUTE NEUTROPHILS (test c ode = 1066) 0.53 K/UL ABSOLUTE LYMPHOCYTES (test c ode = 1067) 1.16 K/UL ABSOLUTE MONOCYTES (test cod e = 1068) 0.26 K/UL ABSOLUTE EOSINOPHILS (test c ode = 1040) 0.07 K/UL ABSOLUTE BASOPHILS (test cod e = 1069) 0.03 K/UL ABS IMMATURE GRANULOCYTES (t est code = 1020) 0.01 K/UL ABS NUCLEATED RBCS (test cod e = 55981) 0.00 K/UL COMMENTS (test code = 1016) (NOTE) Delfino OrtaLIPID [id number] 00:00:00* Test Item Value Reference Range Interpretation Comme nts CHOLESTEROL (test code = 2210) 174 MG/DL TRIGLYCERIDES (test code = 2232) 63 MG/DL HDL CHOLESTEROL (test code = 2220) 87 MG/DL CALC LDL CHOL (test code = 2237) 73 MG/DL RISK RATIO LDL/HDL (test cod e = 2238) 0.84 RATIO Delfino Schumacher AustinCOMPREHENSIVE METABOLIC [id number] 00:00:00* Test Item Value Reference Range Interpretation Comme nts GLUCOSE (test code = 2217) 80 MG/DL BUN (test code = 2208) 18 MG/DL CREATININE (test code = 2214) 1.06 MG/DL eGFR AMER. (test cod e = 77481) 67 ML/MIN/1.73 eGFR NON- AMER. (test code = 16531) 58 ML/MIN/1.73 CALC BUN/CREAT (test code = 2235) 17 RATIO SODIUM (test code = 2231) 139 MEQ/L POTASSIUM (test code = 2228) 3.8 MEQ/L CHLORIDE (test code = 2215) 109 MEQ/L CARBON DIOXIDE (test code = 2206) 20 MEQ/L CALCIUM (test code = 2209) 9.9 MG/DL PROTEIN, TOTAL (test code = 2229) 9.8 G/DL ALBUMIN (test code = 2201) 3.9 G/DL CALC GLOBULIN (test code = 2240) 5.9 G/DL CALC A/G RATIO (test code = 2234) 0.7 RATIO BILIRUBIN, TOTAL (test code = 2207) 0.2 MG/DL ALKALINE PHOSPHATASE (test code = 2204) 79 U/L AST (test code = 2218) 75 U/L ALT (test code = 2219) 54 U/L Delfino Schumacher AustinLIPID [id number] 00:00:00* Test Item Value Reference Range Interpretation Comme nts CHOLESTEROL (test code = 2210) 174 MG/DL TRIGLYCERIDES (test code = 2232) 63 MG/DL HDL CHOLESTEROL (test code = 2220) 87 MG/DL CALC LDL CHOL (test code = 2237) 73 MG/DL RISK RATIO LDL/HDL (test cod e = 2238) 0.84 RATIO Delfino Schumacher AustinCOMPREHENSIVE METABOLIC [id number] 00:00:00* Test Item Value Reference Range Interpretation Comme nts GLUCOSE (test code = 2217) 80 MG/DL BUN (test code = 2208) 18 MG/DL CREATININE (test code = 2214) 1.06 MG/DL eGFR AMER. (test cod e = 08171) 67 ML/MIN/1.73 eGFR NON- AMER. (test code = 00455) 58 ML/MIN/1.73 CALC BUN/CREAT (test code = 2235) 17 RATIO SODIUM (test code = 2231) 139 MEQ/L POTASSIUM (test code = 2228) 3.8 MEQ/L CHLORIDE (test code = 2215) 109 MEQ/L CARBON DIOXIDE (test code = 2206) 20 MEQ/L CALCIUM (test code = 2209) 9.9 MG/DL PROTEIN, TOTAL (test code = 2229) 9.8 G/DL ALBUMIN (test code = 2201) 3.9 G/DL CALC GLOBULIN (test code = 2240) 5.9 G/DL CALC A/G RATIO (test code = 2234) 0.7 RATIO BILIRUBIN, TOTAL (test code = 2207) 0.2 MG/DL ALKALINE PHOSPHATASE (test code = 2204) 79 U/L AST (test code = 2218) 75 U/L ALT (test code = 2219) 54 U/L Delfino Schumacher [facility] W/AUTO [id number] 00:00:00* Test Item Value Reference Range Interpretation Comme nts WBC (test code = 1001) 2.1 K/UL [...] = 1013) 1.5 % IMMATURE GRANULOCYTES (test code = 1036) 0.5 % NUCLEATED RBCS (test code = 1065) 0.0 /100WBC'S PLATELET COUNT (test code = 1015) 181 K/UL ABSOLUTE NEUTROPHILS (test c ode = 1066) 0.53 K/UL ABSOLUTE LYMPHOCYTES (test c ode = 1067) 1.16 K/UL ABSOLUTE MONOCYTES (test cod e = 1068) 0.26 K/UL ABSOLUTE EOSINOPHILS (test c ode = 1040) 0.07 K/UL ABSOLUTE BASOPHILS (test cod e = 1069) 0.03 K/UL ABS IMMATURE GRANULOCYTES (t est code = 1020) 0.01 K/UL ABS NUCLEATED RBCS (test cod e = 06902) 0.00 K/UL COMMENTS (test code = 1016) (NOTE) Delfino Schumacher AustinLIPID [id number] 00:00:00* Test Item Value Reference Range Interpretation Comme nts CHOLESTEROL (test code = 2210) 174 MG/DL TRIGLYCERIDES (test code = 2232) 63 MG/DL HDL CHOLESTEROL (test code = 2220) 87 MG/DL CALC LDL CHOL (test code = 2237) 73 MG/DL RISK RATIO LDL/HDL (test cod e = 2238) 0.84 RATIO Delfino OrtaCOMPREHENSIVE METABOLIC [id number] 00:00:00* Test Item Value Reference Range Interpretation Comme nts GLUCOSE (test code = 2217) 80 MG/DL BUN (test code = 2208) 18 MG/DL CREATININE (test code = 2214) 1.06 MG/DL eGFR AMER. (test cod e = 38188) 67 ML/MIN/1.73 eGFR NON- AMER. (test code = 93780) 58 ML/MIN/1.73 CALC BUN/CREAT (test code = 2235) 17 RATIO SODIUM (test code = 2231) 139 MEQ/L POTASSIUM (test code = 2228) 3.8 MEQ/L CHLORIDE (test code = 2215) 109 MEQ/L CARBON DIOXIDE (test code = 2206) 20 MEQ/L CALCIUM (test code = 2209) 9.9 MG/DL PROTEIN, TOTAL (test code = 2229) 9.8 G/DL ALBUMIN (test code = 2201) 3.9 G/DL CALC GLOBULIN (test code = 2240) 5.9 G/DL CALC A/G RATIO (test code = 2234) 0.7 RATIO BILIRUBIN, TOTAL (test code = 2207) 0.2 MG/DL ALKALINE PHOSPHATASE (test code = 2204) 79 U/L AST (test code = 2218) 75 U/L ALT (test code = 2219) 54 U/L Delfino Schumacher [facility] W/AUTO [id number] 00:00:00* Test Item Value Reference Range Interpretation Comme nts WBC (test code = 1001) 2.1 K/UL [...] = 1013) 1.5 % IMMATURE GRANULOCYTES (test code = 1036) 0.5 % NUCLEATED RBCS (test code = 1065) 0.0 /100WBC'S PLATELET COUNT (test code = 1015) 181 K/UL ABSOLUTE NEUTROPHILS (test c ode = 1066) 0.53 K/UL ABSOLUTE LYMPHOCYTES (test c ode = 1067) 1.16 K/UL ABSOLUTE MONOCYTES (test cod e = 1068) 0.26 K/UL ABSOLUTE EOSINOPHILS (test c ode = 1040) 0.07 K/UL ABSOLUTE BASOPHILS (test cod e = 1069) 0.03 K/UL ABS IMMATURE GRANULOCYTES (t est code = 1020) 0.01 K/UL ABS NUCLEATED RBCS (test cod e = 96998) 0.00 K/UL COMMENTS (test code = 1016) (NOTE) Delfino Endy AustinLIPID [id number] 00:00:00* Test Item Value Reference Range Interpretation Comme nts CHOLESTEROL (test code = 2210) 174 MG/DL TRIGLYCERIDES (test code = 2232) 63 MG/DL HDL CHOLESTEROL (test code = 2220) 87 MG/DL CALC LDL CHOL (test code = 2237) 73 MG/DL RISK RATIO LDL/HDL (test cod e = 2238) 0.84 RATIO Delfino OrtaCOMPREHENSIVE METABOLIC [id number] 00:00:00* Test Item Value Reference Range Interpretation Comme nts GLUCOSE (test code = 2217) 80 MG/DL BUN (test code = 2208) 18 MG/DL CREATININE (test code = 2214) 1.06 MG/DL eGFR AMER. (test cod e = 74401) 67 ML/MIN/1.73 eGFR NON- AMER. (test code = 70068) 58 ML/MIN/1.73 CALC BUN/CREAT (test code = 2235) 17 RATIO SODIUM (test code = 2231) 139 MEQ/L POTASSIUM (test code = 2228) 3.8 MEQ/L CHLORIDE (test code = 2215) 109 MEQ/L CARBON DIOXIDE (test code = 2206) 20 MEQ/L CALCIUM (test code = 2209) 9.9 MG/DL PROTEIN, TOTAL (test code = 2229) 9.8 G/DL ALBUMIN (test code = 2201) 3.9 G/DL CALC GLOBULIN (test code = 2240) 5.9 G/DL CALC A/G RATIO (test code = 2234) 0.7 RATIO BILIRUBIN, TOTAL (test code = 2207) 0.2 MG/DL ALKALINE PHOSPHATASE (test code = 2204) 79 U/L AST (test code = 2218) 75 U/L ALT (test code = 2219) 54 U/L Delfino Schumacher [facility] W/AUTO [id number] 00:00:00* Test Item Value Reference Range Interpretation Comme nts WBC (test code = 1001) 2.1 K/UL [...] = 1013) 1.5 % IMMATURE GRANULOCYTES (test code = 1036) 0.5 % NUCLEATED RBCS (test code = 1065) 0.0 /100WBC'S PLATELET COUNT (test code = 1015) 181 K/UL ABSOLUTE NEUTROPHILS (test c ode = 1066) 0.53 K/UL ABSOLUTE LYMPHOCYTES (test c ode = 1067) 1.16 K/UL ABSOLUTE MONOCYTES (test cod e = 1068) 0.26 K/UL ABSOLUTE EOSINOPHILS (test c ode = 1040) 0.07 K/UL ABSOLUTE BASOPHILS (test cod e = 1069) 0.03 K/UL ABS IMMATURE GRANULOCYTES (t est code = 1020) 0.01 K/UL ABS NUCLEATED RBCS (test cod e = 46794) 0.00 K/UL COMMENTS (test code = 1016) (NOTE) Delfino Schumacher AustinLIPID [id number] 00:00:00* Test Item Value Reference Range Interpretation Comme nts CHOLESTEROL (test code = 2210) 174 MG/DL TRIGLYCERIDES (test code = 2232) 63 MG/DL HDL CHOLESTEROL (test code = 2220) 87 MG/DL CALC LDL CHOL (test code = 2237) 73 MG/DL RISK RATIO LDL/HDL (test cod e = 2238) 0.84 RATIO Delfino OrtaCOMPREHENSIVE METABOLIC [id number] 00:00:00* Test Item Value Reference Range Interpretation Comme nts GLUCOSE (test code = 2217) 80 MG/DL BUN (test code = 2208) 18 MG/DL CREATININE (test code = 2214) 1.06 MG/DL eGFR AMER. (test cod e = 09184) 67 ML/MIN/1.73 eGFR NON- AMER. (test code = 07969) 58 ML/MIN/1.73 CALC BUN/CREAT (test code = 2235) 17 RATIO SODIUM (test code = 2231) 139 MEQ/L POTASSIUM (test code = 2228) 3.8 MEQ/L CHLORIDE (test code = 2215) 109 MEQ/L CARBON DIOXIDE (test code = 2206) 20 MEQ/L CALCIUM (test code = 2209) 9.9 MG/DL PROTEIN, TOTAL (test code = 2229) 9.8 G/DL ALBUMIN (test code = 2201) 3.9 G/DL CALC GLOBULIN (test code = 2240) 5.9 G/DL CALC A/G RATIO (test code = 2234) 0.7 RATIO BILIRUBIN, TOTAL (test code = 2207) 0.2 MG/DL ALKALINE PHOSPHATASE (test code = 2204) 79 U/L AST (test code = 2218) 75 U/L ALT (test code = 2219) 54 U/L Delfino OrtaCBC W/AUTO [id number] 00:00:00* Test Item Value Reference Range Interpretation Comme nts WBC (test code = 1001) 2.1 K/UL [...] = 1013) 1.5 % IMMATURE GRANULOCYTES (test code = 1036) 0.5 % NUCLEATED RBCS (test code = 1065) 0.0 /100WBC'S PLATELET COUNT (test code = 1015) 181 K/UL ABSOLUTE NEUTROPHILS (test c ode = 1066) 0.53 K/UL ABSOLUTE LYMPHOCYTES (test c ode = 1067) 1.16 K/UL ABSOLUTE MONOCYTES (test cod e = 1068) 0.26 K/UL ABSOLUTE EOSINOPHILS (test c ode = 1040) 0.07 K/UL ABSOLUTE BASOPHILS (test cod e = 1069) 0.03 K/UL ABS IMMATURE GRANULOCYTES (t est code = 1020) 0.01 K/UL ABS NUCLEATED RBCS (test cod e = 20163) 0.00 K/UL COMMENTS (test code = 1016) (NOTE) Delfino OrtaLIPID [id number] 00:00:00* Test Item Value Reference Range Interpretation Comme nts CHOLESTEROL (test code = 2210) 174 MG/DL TRIGLYCERIDES (test code = 2232) 63 MG/DL HDL CHOLESTEROL (test code = 2220) 87 MG/DL CALC LDL CHOL (test code = 2237) 73 MG/DL RISK RATIO LDL/HDL (test cod e = 2238) 0.84 RATIO Delfino OrtaCOMPREHENSIVE METABOLIC [id number] 00:00:00* Test Item Value Reference Range Interpretation Comme nts GLUCOSE (test code = 2217) 80 MG/DL BUN (test code = 2208) 18 MG/DL CREATININE (test code = 2214) 1.06 MG/DL eGFR AMER. (test cod e = 76913) 67 ML/MIN/1.73 eGFR NON- AMER. (test code = 18078) 58 ML/MIN/1.73 CALC BUN/CREAT (test code = 2235) 17 RATIO SODIUM (test code = 2231) 139 MEQ/L POTASSIUM (test code = 2228) 3.8 MEQ/L CHLORIDE (test code = 2215) 109 MEQ/L CARBON DIOXIDE (test code = 2206) 20 MEQ/L CALCIUM (test code = 2209) 9.9 MG/DL PROTEIN, TOTAL (test code = 2229) 9.8 G/DL ALBUMIN (test code = 2201) 3.9 G/DL CALC GLOBULIN (test code = 2240) 5.9 G/DL CALC A/G RATIO (test code = 2234) 0.7 RATIO BILIRUBIN, TOTAL (test code = 2207) 0.2 MG/DL ALKALINE PHOSPHATASE (test code = 2204) 79 U/L AST (test code = 2218) 75 U/L ALT (test code = 2219) 54 U/L Delfino [facility] [id number] 00:00:00* Test Item Value Reference Range Interpretation Comme nts WBC (test code = 1001) 2.1 K/UL [...] = 1013) 1.5 % IMMATURE GRANULOCYTES (test code = 1036) 0.5 % NUCLEATED RBCS (test code = 1065) 0.0 /100WBC'S PLATELET COUNT (test code = 1015) 181 K/UL ABSOLUTE NEUTROPHILS (test c ode = 1066) 0.53 K/UL ABSOLUTE LYMPHOCYTES (test c ode = 1067) 1.16 K/UL ABSOLUTE MONOCYTES (test cod e = 1068) 0.26 K/UL ABSOLUTE EOSINOPHILS (test c ode = 1040) 0.07 K/UL ABSOLUTE BASOPHILS (test cod e = 1069) 0.03 K/UL ABS IMMATURE GRANULOCYTES (t est code = 1020) 0.01 K/UL ABS NUCLEATED RBCS (test cod e = 01424) 0.00 K/UL COMMENTS (test code = 1016) (NOTE) Delfino Schumacher [id number] (COVID-19) by RT-PCR (HIGH RISK)2020-01-21 00:00:00* Test Item Value Reference Range Interpretation Comme nts SARS-CoV-2 INTERPRETATION (t est code = 78196) NEGATIVE SOURCE (test code = 67182) NOT SPECIFIED Delfino Schumacher [id number] (COVID-19) by RT-PCR (HIGH RISK)2020-01-21 00:00:00* Test Item Value Reference Range Interpretation Comme nts SARS-CoV-2 INTERPRETATION (t est code = 90029) NEGATIVE SOURCE (test code = 83822) NOT SPECIFIED Delfino Schumacher [id number] (COVID-19) by RT-PCR (HIGH RISK)2020-01-21 00:00:00* Test Item Value Reference Range Interpretation Comme nts SARS-CoV-2 INTERPRETATION (t est code = 82926) NEGATIVE SOURCE (test code = 82027) NOT SPECIFIED SARS-CoV-2 (COVID-19) by RT-PCR (HIGH RISK)2020-01-21 00:00:00* Test Item Value Reference Range Interpretation Comme nts SARS-CoV-2 INTERPRETATION (t est code = 27095) NEGATIVE SOURCE (test code = 14495) NOT SPECIFIED SARS-CoV-2 (COVID-19) by RT-PCR (HIGH RISK)2020-01-21 00:00:00* Test Item Value Reference Range Interpretation Comme nts SARS-CoV-2 INTERPRETATION (t est code = 16519) NEGATIVE SOURCE (test code = 73994) NOT SPECIFIED SARS-CoV-2 (COVID-19) by RT-PCR (HIGH RISK)2020-01-21 00:00:00* Test Item Value Reference Range Interpretation Comme nts SARS-CoV-2 INTERPRETATION (t est code = 43126) NEGATIVE SOURCE (test code = 13127) NOT SPECIFIED SARS-CoV-2 (COVID-19) by RT-PCR (HIGH RISK)2020-01-21 00:00:00* Test Item Value Reference Range Interpretation Comme nts SARS-CoV-2 INTERPRETATION (t est code = 71167) NEGATIVE SOURCE (test code = 80972) NOT SPECIFIED SARS-CoV-2 (COVID-19) by RT-PCR (HIGH RISK)2020-01-21 00:00:00* Test Item Value Reference Range Interpretation Comme nts SARS-CoV-2 INTERPRETATION (t est code = 74991) NEGATIVE SOURCE (test code = 72746) NOT SPECIFIED SARS-CoV-2 (COVID-19) by RT-PCR (HIGH RISK)2020-01-21 00:00:00* Test Item Value Reference Range Interpretation Comme nts SARS-CoV-2 INTERPRETATION (t est code = 92038) NEGATIVE SOURCE (test code = 52942) NOT SPECIFIED SARS-CoV-2 (COVID-19) by RT-PCR (HIGH RISK)2020-01-21 00:00:00* Test Item Value Reference Range Interpretation Comme nts SARS-CoV-2 INTERPRETATION (t est code = 50114) NEGATIVE SOURCE (test code = 01188) NOT SPECIFIED Delfino F FbzuutFJRQ-[id number] (COVID-19) by RT-PCR (HIGH RISK)2020-01-21 00:00:00* Test Item Value Reference Range Interpretation Comme nts SARS-CoV-2 INTERPRETATION (t est code = 17539) NEGATIVE SOURCE (test code = 13903) NOT SPECIFIED Delfino F CbbmveIWMI-[id number]-7 (COVID-19) by RT-PCR (HIGH RISK)2020-01-21 00:00:00* Test Item Value Reference Range Interpretation Comme nts SARS-CoV-2 INTERPRETATION (t est code = 00789) NEGATIVE SOURCE (test code = 39823) NOT SPECIFIED Delfino F VidfmtUBVD-PpH-3 (COVID-19) by RT-PCR (HIGH RISK)2020-01-21 00:00:00* Test Item Value Reference Range Interpretation Comme nts SARS-CoV-2 INTERPRETATION (t est code = 78286) NEGATIVE SOURCE (test code = 57935) NOT SPECIFIED Delfino OrtaSARS-CoV-2 (COVID-19) by RT-PCR (HIGH RISK)2020-01-21 00:00:00* Test Item Value Reference Range Interpretation Comme nts SARS-CoV-2 INTERPRETATION (t est code = 39656) NEGATIVE SOURCE (test code = 50006) NOT SPECIFIED Delfino OrtaSARS-CoV-2 (COVID-19) by RT-PCR (HIGH RISK)2020-01-21 00:00:00* Test Item Value Reference Range Interpretation Comme nts SARS-CoV-2 INTERPRETATION (t est code = 74880) NEGATIVE SOURCE (test code = 40139) NOT SPECIFIED Delfino OrtaCOMPREHENSIVE METABOLIC [id number] 00:00:00* Test Item Value Reference Range Interpretation Comme nts GLUCOSE (test code = 2217) 86 MG/DL BUN (test code = 2208) 16 MG/DL CREATININE (test code = 2214) 0.90 MG/DL eGFR AMER. (test cod e = 01532) 83 ML/MIN/1.73 eGFR NON- AMER. (test code = 63490) 71 ML/MIN/1.73 CALC BUN/CREAT (test code = 2235) 18 RATIO SODIUM (test code = 2231) 139 MEQ/L POTASSIUM (test code = 2228) 4.1 MEQ/L CHLORIDE (test code = 2215) 110 MEQ/L CARBON DIOXIDE (test code = 2206) 19 MEQ/L CALCIUM (test code = 2209) 10.0 MG/DL PROTEIN, TOTAL (test code = 2229) 9.5 G/DL ALBUMIN (test code = 2201) 4.1 G/DL CALC GLOBULIN (test code = 2240) 5.4 G/DL CALC A/G RATIO (test code = 2234) 0.8 RATIO BILIRUBIN, TOTAL (test code = 2207) 0.4 MG/DL ALKALINE PHOSPHATASE (test code = 2204) 80 U/L AST (test code = 2218) 38 U/L ALT (test code = 2219) 29 U/L Delfino OrtaCBC W/AUTO [id number] 00:00:00* Test Item Value Reference Range Interpretation Comme nts WBC (test code = 1001) 3.0 K/UL [...] COUNT (test code = 1015) 186 K/UL Delfino OrtaCOMPREHENSIVE METABOLIC [id number] 00:00:00* Test Item Value Reference Range Interpretation Comme nts GLUCOSE (test code = 2217) 86 MG/DL BUN (test code = 2208) 16 MG/DL CREATININE (test code = 2214) 0.90 MG/DL eGFR AMER. (test cod e = 58273) 83 ML/MIN/1.73 eGFR NON- AMER. (test code = 55720) 71 ML/MIN/1.73 CALC BUN/CREAT (test code = 2235) 18 RATIO SODIUM (test code = 2231) 139 MEQ/L POTASSIUM (test code = 2228) 4.1 MEQ/L CHLORIDE (test code = 2215) 110 MEQ/L CARBON DIOXIDE (test code = 2206) 19 MEQ/L CALCIUM (test code = 2209) 10.0 MG/DL PROTEIN, TOTAL (test code = 2229) 9.5 G/DL ALBUMIN (test code = 2201) 4.1 G/DL CALC GLOBULIN (test code = 2240) 5.4 G/DL CALC A/G RATIO (test code = 2234) 0.8 RATIO BILIRUBIN, TOTAL (test code = 2207) 0.4 MG/DL ALKALINE PHOSPHATASE (test code = 2204) 80 U/L AST (test code = 2218) 38 U/L ALT (test code = 2219) 29 U/L Delfino OrtaCOMPREHENSIVE METABOLIC [id number] 00:00:00* Test Item Value Reference Range Interpretation Comme nts GLUCOSE (test code = 2217) 86 MG/DL BUN (test code = 2208) 16 MG/DL CREATININE (test code = 2214) 0.90 MG/DL eGFR AMER. (test cod e = 26130) 83 ML/MIN/1.73 eGFR NON- AMER. (test code = 21085) 71 ML/MIN/1.73 CALC BUN/CREAT (test code = 2235) 18 RATIO SODIUM (test code = 2231) 139 MEQ/L POTASSIUM (test code = 2228) 4.1 MEQ/L CHLORIDE (test code = 2215) 110 MEQ/L CARBON DIOXIDE (test code = 2206) 19 MEQ/L CALCIUM (test code = 2209) 10.0 MG/DL PROTEIN, TOTAL (test code = 2229) 9.5 G/DL ALBUMIN (test code = 2201) 4.1 G/DL CALC GLOBULIN (test code = 2240) 5.4 G/DL CALC A/G RATIO (test code = 2234) 0.8 RATIO BILIRUBIN, TOTAL (test code = 2207) 0.4 MG/DL ALKALINE PHOSPHATASE (test code = 2204) 80 U/L AST (test code = 2218) 38 U/L ALT (test code = 2219) 29 U/L Delfino F YouCOMPREHENSIVE METABOLIC [id number] 00:00:00* Test Item Value Reference Range Interpretation Comme nts GLUCOSE (test code = 2217) 86 MG/DL BUN (test code = 2208) 16 MG/DL CREATININE (test code = 2214) 0.90 MG/DL eGFR AMER. (test cod e = 04950) 83 ML/MIN/1.73 eGFR NON- AMER. (test code = 37774) 71 ML/MIN/1.73 CALC BUN/CREAT (test code = 2235) 18 RATIO SODIUM (test code = 2231) 139 MEQ/L POTASSIUM (test code = 2228) 4.1 MEQ/L CHLORIDE (test code = 2215) 110 MEQ/L CARBON DIOXIDE (test code = 2206) 19 MEQ/L CALCIUM (test code = 2209) 10.0 MG/DL PROTEIN, TOTAL (test code = 2229) 9.5 G/DL ALBUMIN (test code = 2201) 4.1 G/DL CALC GLOBULIN (test code = 2240) 5.4 G/DL CALC A/G RATIO (test code = 2234) 0.8 RATIO BILIRUBIN, TOTAL (test code = 2207) 0.4 MG/DL ALKALINE PHOSPHATASE (test code = 2204) 80 U/L AST (test code = 2218) 38 U/L ALT (test code = 2219) 29 U/L COMPREHENSIVE METABOLIC [id number] 00:00:00* Test Item Value Reference Range Interpretation Comme nts GLUCOSE (test code = 2217) 86 MG/DL BUN (test code = 2208) 16 MG/DL CREATININE (test code = 2214) 0.90 MG/DL eGFR AMER. (test cod e = 67382) 83 ML/MIN/1.73 eGFR NON- AMER. (test code = 56813) 71 ML/MIN/1.73 CALC BUN/CREAT (test code = 2235) 18 RATIO SODIUM (test code = 2231) 139 MEQ/L POTASSIUM (test code = 2228) 4.1 MEQ/L CHLORIDE (test code = 2215) 110 MEQ/L CARBON DIOXIDE (test code = 2206) 19 MEQ/L CALCIUM (test code = 2209) 10.0 MG/DL PROTEIN, TOTAL (test code = 2229) 9.5 G/DL ALBUMIN (test code = 2201) 4.1 G/DL CALC GLOBULIN (test code = 2240) 5.4 G/DL CALC A/G RATIO (test code = 2234) 0.8 RATIO BILIRUBIN, TOTAL (test code = 2207) 0.4 MG/DL ALKALINE PHOSPHATASE (test code = 2204) 80 U/L AST (test code = 2218) 38 U/L ALT (test code = 2219) 29 U/L CBC W/AUTO [id number] 00:00:00* Test Item Value Reference Range Interpretation Comme nts WBC (test code = 1001) 3.0 K/UL [...] code = 1015) 186 K/UL CBC W/AUTO [id number] 00:00:00* Test Item Value Reference Range Interpretation Comme nts WBC (test code = 1001) 3.0 K/UL [...] code = 1015) 186 K/UL CBC W/AUTO [id number] 00:00:00* Test Item Value Reference Range Interpretation Comme nts WBC (test code = 1001) 3.0 K/UL [...] code = 1015) 186 K/UL COMPREHENSIVE METABOLIC [id number] 00:00:00* Test Item Value Reference Range Interpretation Comme nts GLUCOSE (test code = 2217) 86 MG/DL BUN (test code = 2208) 16 MG/DL CREATININE (test code = 2214) 0.90 MG/DL eGFR AMER. (test cod e = 51538) 83 ML/MIN/1.73 eGFR NON- AMER. (test code = 54137) 71 ML/MIN/1.73 CALC BUN/CREAT (test code = 2235) 18 RATIO SODIUM (test code = 2231) 139 MEQ/L POTASSIUM (test code = 2228) 4.1 MEQ/L CHLORIDE (test code = 2215) 110 MEQ/L CARBON DIOXIDE (test code = 2206) 19 MEQ/L CALCIUM (test code = 2209) 10.0 MG/DL PROTEIN, TOTAL (test code = 2229) 9.5 G/DL ALBUMIN (test code = 2201) 4.1 G/DL CALC GLOBULIN (test code = 2240) 5.4 G/DL CALC A/G RATIO (test code = 2234) 0.8 RATIO BILIRUBIN, TOTAL (test code = 2207) 0.4 MG/DL ALKALINE PHOSPHATASE (test code = 2204) 80 U/L AST (test code = 2218) 38 U/L ALT (test code = 2219) 29 U/L COMPREHENSIVE METABOLIC [id number] 00:00:00* Test Item Value Reference Range Interpretation Comme nts GLUCOSE (test code = 2217) 86 MG/DL BUN (test code = 2208) 16 MG/DL CREATININE (test code = 2214) 0.90 MG/DL eGFR AMER. (test cod e = 95216) 83 ML/MIN/1.73 eGFR NON- AMER. (test code = 85308) 71 ML/MIN/1.73 CALC BUN/CREAT (test code = 2235) 18 RATIO SODIUM (test code = 2231) 139 MEQ/L POTASSIUM (test code = 2228) 4.1 MEQ/L CHLORIDE (test code = 2215) 110 MEQ/L CARBON DIOXIDE (test code = 2206) 19 MEQ/L CALCIUM (test code = 2209) 10.0 MG/DL PROTEIN, TOTAL (test code = 2229) 9.5 G/DL ALBUMIN (test code = 2201) 4.1 G/DL CALC GLOBULIN (test code = 2240) 5.4 G/DL CALC A/G RATIO (test code = 2234) 0.8 RATIO BILIRUBIN, TOTAL (test code = 2207) 0.4 MG/DL ALKALINE PHOSPHATASE (test code = 2204) 80 U/L AST (test code = 2218) 38 U/L ALT (test code = 2219) 29 U/L CBC W/AUTO [id number] 00:00:00* Test Item Value Reference Range Interpretation Comme nts WBC (test code = 1001) 3.0 K/UL [...] code = 1015) 186 K/UL CBC W/AUTO [id number] 00:00:00* Test Item Value Reference Range Interpretation Comme nts WBC (test code = 1001) 3.0 K/UL [...] code = 1015) 186 K/UL CBC W/AUTO [id number] 00:00:00* Test Item Value Reference Range Interpretation Comme nts WBC (test code = 1001) 3.0 K/UL [...] code = 1015) 186 K/UL COMPREHENSIVE METABOLIC [id number] 00:00:00* Test Item Value Reference Range Interpretation Comme nts GLUCOSE (test code = 2217) 86 MG/DL BUN (test code = 2208) 16 MG/DL CREATININE (test code = 2214) 0.90 MG/DL eGFR AMER. (test cod e = 24596) 83 ML/MIN/1.73 eGFR NON- AMER. (test code = 14699) 71 ML/MIN/1.73 CALC BUN/CREAT (test code = 2235) 18 RATIO SODIUM (test code = 2231) 139 MEQ/L POTASSIUM (test code = 2228) 4.1 MEQ/L CHLORIDE (test code = 2215) 110 MEQ/L CARBON DIOXIDE (test code = 2206) 19 MEQ/L CALCIUM (test code = 2209) 10.0 MG/DL PROTEIN, TOTAL (test code = 2229) 9.5 G/DL ALBUMIN (test code = 2201) 4.1 G/DL CALC GLOBULIN (test code = 2240) 5.4 G/DL CALC A/G RATIO (test code = 2234) 0.8 RATIO BILIRUBIN, TOTAL (test code = 2207) 0.4 MG/DL ALKALINE PHOSPHATASE (test code = 2204) 80 U/L AST (test code = 2218) 38 U/L ALT (test code = 2219) 29 U/L CBC W/AUTO [id number] 00:00:00* Test Item Value Reference Range Interpretation Comme nts WBC (test code = 1001) 3.0 K/UL [...] code = 1015) 186 K/UL CBC W/AUTO [id number] 00:00:00* Test Item Value Reference Range Interpretation Comme nts WBC (test code = 1001) 3.0 K/UL [...] code = 1015) 186 K/UL COMPREHENSIVE METABOLIC [id number] 00:00:00* Test Item Value Reference Range Interpretation Comme nts GLUCOSE (test code = 2217) 86 MG/DL BUN (test code = 2208) 16 MG/DL CREATININE (test code = 2214) 0.90 MG/DL eGFR AMER. (test cod e = 55317) 83 ML/MIN/1.73 eGFR NON- AMER. (test code = 83143) 71 ML/MIN/1.73 CALC BUN/CREAT (test code = 2235) 18 RATIO SODIUM (test code = 2231) 139 MEQ/L POTASSIUM (test code = 2228) 4.1 MEQ/L CHLORIDE (test code = 2215) 110 MEQ/L CARBON DIOXIDE (test code = 2206) 19 MEQ/L CALCIUM (test code = 2209) 10.0 MG/DL PROTEIN, TOTAL (test code = 2229) 9.5 G/DL ALBUMIN (test code = 2201) 4.1 G/DL CALC GLOBULIN (test code = 2240) 5.4 G/DL CALC A/G RATIO (test code = 2234) 0.8 RATIO BILIRUBIN, TOTAL (test code = 2207) 0.4 MG/DL ALKALINE PHOSPHATASE (test code = 2204) 80 U/L AST (test code = 2218) 38 U/L ALT (test code = 2219) 29 U/L COMPREHENSIVE METABOLIC [id number] 00:00:00* Test Item Value Reference Range Interpretation Comme nts GLUCOSE (test code = 2217) 86 MG/DL BUN (test code = 2208) 16 MG/DL CREATININE (test code = 2214) 0.90 MG/DL eGFR AMER. (test cod e = 94284) 83 ML/MIN/1.73 eGFR NON- AMER. (test code = 67376) 71 ML/MIN/1.73 CALC BUN/CREAT (test code = 2235) 18 RATIO SODIUM (test code = 2231) 139 MEQ/L POTASSIUM (test code = 2228) 4.1 MEQ/L CHLORIDE (test code = 2215) 110 MEQ/L CARBON DIOXIDE (test code = 2206) 19 MEQ/L CALCIUM (test code = 2209) 10.0 MG/DL PROTEIN, TOTAL (test code = 2229) 9.5 G/DL ALBUMIN (test code = 2201) 4.1 G/DL CALC GLOBULIN (test code = 2240) 5.4 G/DL CALC A/G RATIO (test code = 2234) 0.8 RATIO BILIRUBIN, TOTAL (test code = 2207) 0.4 MG/DL ALKALINE PHOSPHATASE (test code = 2204) 80 U/L AST (test code = 2218) 38 U/L ALT (test code = 2219) 29 U/L CBC W/AUTO [id number] 00:00:00* Test Item Value Reference Range Interpretation Comme nts WBC (test code = 1001) 3.0 K/UL [...] code = 1015) 186 K/UL CBC W/AUTO [id number] 00:00:00* Test Item Value Reference Range Interpretation Comme nts WBC (test code = 1001) 3.0 K/UL [...] code = 1015) 186 K/UL CBC W/AUTO [id number] 00:00:00* Test Item Value Reference Range Interpretation Comme nts WBC (test code = 1001) 3.0 K/UL [...] code = 1015) 186 K/UL CBC W/AUTO [id number] 00:00:00* Test Item Value Reference Range Interpretation Comme nts WBC (test code = 1001) 3.0 K/UL [...] COUNT (test code = 1015) 186 K/UL Delfino Schumacher YouCOMPREHENSIVE METABOLIC [id number] 00:00:00* Test Item Value Reference Range Interpretation Comme nts GLUCOSE (test code = 2217) 86 MG/DL BUN (test code = 2208) 16 MG/DL CREATININE (test code = 2214) 0.90 MG/DL eGFR AMER. (test cod e = 67968) 83 ML/MIN/1.73 eGFR NON- AMER. (test code = 74942) 71 ML/MIN/1.73 CALC BUN/CREAT (test code = 2235) 18 RATIO SODIUM (test code = 2231) 139 MEQ/L POTASSIUM (test code = 2228) 4.1 MEQ/L CHLORIDE (test code = 2215) 110 MEQ/L CARBON DIOXIDE (test code = 2206) 19 MEQ/L CALCIUM (test code = 2209) 10.0 MG/DL PROTEIN, TOTAL (test code = 2229) 9.5 G/DL ALBUMIN (test code = 2201) 4.1 G/DL CALC GLOBULIN (test code = 2240) 5.4 G/DL CALC A/G RATIO (test code = 2234) 0.8 RATIO BILIRUBIN, TOTAL (test code = 2207) 0.4 MG/DL ALKALINE PHOSPHATASE (test code = 2204) 80 U/L AST (test code = 2218) 38 U/L ALT (test code = 2219) 29 U/L Delfino Schumacher [facility] W/AUTO [id number] 00:00:00* Test Item Value Reference Range Interpretation Comme nts WBC (test code = 1001) 3.0 K/UL [...] COUNT (test code = 1015) 186 K/UL Delfino Schumacher [facility] W/AUTO [id number] 00:00:00* Test Item Value Reference Range Interpretation Comme nts WBC (test code = 1001) 3.0 K/UL [...] COUNT (test code = 1015) 186 K/UL Delfino OrtaCOMPREHENSIVE METABOLIC [id number] 00:00:00* Test Item Value Reference Range Interpretation Comme nts GLUCOSE (test code = 2217) 86 MG/DL BUN (test code = 2208) 16 MG/DL CREATININE (test code = 2214) 0.90 MG/DL eGFR AMER. (test cod e = 22262) 83 ML/MIN/1.73 eGFR NON- AMER. (test code = 32116) 71 ML/MIN/1.73 CALC BUN/CREAT (test code = 2235) 18 RATIO SODIUM (test code = 2231) 139 MEQ/L POTASSIUM (test code = 2228) 4.1 MEQ/L CHLORIDE (test code = 2215) 110 MEQ/L CARBON DIOXIDE (test code = 2206) 19 MEQ/L CALCIUM (test code = 2209) 10.0 MG/DL PROTEIN, TOTAL (test code = 2229) 9.5 G/DL ALBUMIN (test code = 2201) 4.1 G/DL CALC GLOBULIN (test code = 2240) 5.4 G/DL CALC A/G RATIO (test code = 2234) 0.8 RATIO BILIRUBIN, TOTAL (test code = 2207) 0.4 MG/DL ALKALINE PHOSPHATASE (test code = 2204) 80 U/L AST (test code = 2218) 38 U/L ALT (test code = 2219) 29 U/L Delfino OrtaCBC W/AUTO [id number] 00:00:00* Test Item Value Reference Range Interpretation Comme nts WBC (test code = 1001) 3.0 K/UL [...] COUNT (test code = 1015) 186 K/UL Delfino OrtaCOMPREHENSIVE METABOLIC [id number] 00:00:00* Test Item Value Reference Range Interpretation Comme nts GLUCOSE (test code = 2217) 86 MG/DL BUN (test code = 2208) 16 MG/DL CREATININE (test code = 2214) 0.90 MG/DL eGFR AMER. (test cod e = 30594) 83 ML/MIN/1.73 eGFR NON- AMER. (test code = 50738) 71 ML/MIN/1.73 CALC BUN/CREAT (test code = 2235) 18 RATIO SODIUM (test code = 2231) 139 MEQ/L POTASSIUM (test code = 2228) 4.1 MEQ/L CHLORIDE (test code = 2215) 110 MEQ/L CARBON DIOXIDE (test code = 2206) 19 MEQ/L CALCIUM (test code = 2209) 10.0 MG/DL PROTEIN, TOTAL (test code = 2229) 9.5 G/DL ALBUMIN (test code = 2201) 4.1 G/DL CALC GLOBULIN (test code = 2240) 5.4 G/DL CALC A/G RATIO (test code = 2234) 0.8 RATIO BILIRUBIN, TOTAL (test code = 2207) 0.4 MG/DL ALKALINE PHOSPHATASE (test code = 2204) 80 U/L AST (test code = 2218) 38 U/L ALT (test code = 2219) 29 U/L Delfino OrtaCBC W/AUTO [id number] 00:00:00* Test Item Value Reference Range Interpretation Comme nts WBC (test code = 1001) 3.0 K/UL [...] COUNT (test code = 1015) 186 K/UL Delfino Schumacher YouCOMPREHENSIVE METABOLIC [id number] 00:00:00* Test Item Value Reference Range Interpretation Comme nts GLUCOSE (test code = 2217) 86 MG/DL BUN (test code = 2208) 16 MG/DL CREATININE (test code = 2214) 0.90 MG/DL eGFR AMER. (test cod e = 97852) 83 ML/MIN/1.73 eGFR NON- AMER. (test code = 59139) 71 ML/MIN/1.73 CALC BUN/CREAT (test code = 2235) 18 RATIO SODIUM (test code = 2231) 139 MEQ/L POTASSIUM (test code = 2228) 4.1 MEQ/L CHLORIDE (test code = 2215) 110 MEQ/L CARBON DIOXIDE (test code = 2206) 19 MEQ/L CALCIUM (test code = 2209) 10.0 MG/DL PROTEIN, TOTAL (test code = 2229) 9.5 G/DL ALBUMIN (test code = 2201) 4.1 G/DL CALC GLOBULIN (test code = 2240) 5.4 G/DL CALC A/G RATIO (test code = 2234) 0.8 RATIO BILIRUBIN, TOTAL (test code = 2207) 0.4 MG/DL ALKALINE PHOSPHATASE (test code = 2204) 80 U/L AST (test code = 2218) 38 U/L ALT (test code = 2219) 29 U/L Delfino Schumacher YuoCBC W/AUTO [id number] 00:00:00* Test Item Value Reference Range Interpretation Comme nts WBC (test code = 1001) 3.0 K/UL [...] COUNT (test code = 1015) 186 K/UL Delfino OrtaCOMPREHENSIVE METABOLIC [id number] 00:00:00* Test Item Value Reference Range Interpretation Comme nts GLUCOSE (test code = 2217) 86 MG/DL BUN (test code = 2208) 16 MG/DL CREATININE (test code = 2214) 0.90 MG/DL eGFR AMER. (test cod e = 25834) 83 ML/MIN/1.73 eGFR NON- AMER. (test code = 65717) 71 ML/MIN/1.73 CALC BUN/CREAT (test code = 2235) 18 RATIO SODIUM (test code = 2231) 139 MEQ/L POTASSIUM (test code = 2228) 4.1 MEQ/L CHLORIDE (test code = 2215) 110 MEQ/L CARBON DIOXIDE (test code = 2206) 19 MEQ/L CALCIUM (test code = 2209) 10.0 MG/DL PROTEIN, TOTAL (test code = 2229) 9.5 G/DL ALBUMIN (test code = 2201) 4.1 G/DL CALC GLOBULIN (test code = 2240) 5.4 G/DL CALC A/G RATIO (test code = 2234) 0.8 RATIO BILIRUBIN, TOTAL (test code = 2207) 0.4 MG/DL ALKALINE PHOSPHATASE (test code = 2204) 80 U/L AST (test code = 2218) 38 U/L ALT (test code = 2219) 29 U/L Delfino OrtaCBC W/AUTO [id number] 00:00:00* Test Item Value Reference Range Interpretation Comme nts WBC (test code = 1001) 3.0 K/UL [...] COUNT (test code = 1015) 186 K/UL [facility] [id number] 00:00:00* Test Item Value Reference Range Interpretation Comme nts WBC (test code = 1001) 2.4 K/UL [...] K/UL COMMENTS (test code = 1016) (NOTE) Delfino Schumacher [facility] W/AUTO [id number] 00:00:00* Test Item Value Reference Range Interpretation Comme nts WBC (test code = 1001) 2.4 K/UL [...] (test code = 1016) (NOTE) CBC W/AUTO [id number] 00:00:00* Test Item Value Reference Range Interpretation Comme nts WBC (test code = 1001) 2.4 K/UL [...] (test code = 1016) (NOTE) CBC W/AUTO [id number] 00:00:00* Test Item Value Reference Range Interpretation Comme nts WBC (test code = 1001) 2.4 K/UL [...] (test code = 1016) (NOTE) CBC W/AUTO [id number] 00:00:00* Test Item Value Reference Range Interpretation Comme nts WBC (test code = 1001) 2.4 K/UL [...] (test code = 1016) (NOTE) CBC W/AUTO [id number] 00:00:00* Test Item Value Reference Range Interpretation Comme nts WBC (test code = 1001) 2.4 K/UL [...] (test code = 1016) (NOTE) CBC W/AUTO [id number] 00:00:00* Test Item Value Reference Range Interpretation Comme nts WBC (test code = 1001) 2.4 K/UL [...] (test code = 1016) (NOTE) CBC W/AUTO [id number] 00:00:00* Test Item Value Reference Range Interpretation Comme nts WBC (test code = 1001) 2.4 K/UL [...] (test code = 1016) (NOTE) CBC W/AUTO [id number] 00:00:00* Test Item Value Reference Range Interpretation Comme nts WBC (test code = 1001) 2.4 K/UL [...] (test code = 1016) (NOTE) CBC W/AUTO [id number] 00:00:00* Test Item Value Reference Range Interpretation Comme nts WBC (test code = 1001) 2.4 K/UL [...] (test code = 1016) (NOTE) CBC W/AUTO [id number] 00:00:00* Test Item Value Reference Range Interpretation Comme nts WBC (test code = 1001) 2.4 K/UL [...] (test code = 1016) (NOTE) CBC W/AUTO [id number] 00:00:00* Test Item Value Reference Range Interpretation Comme nts WBC (test code = 1001) 2.4 K/UL [...] (test code = 1016) (NOTE) CBC W/AUTO [id number] 00:00:00* Test Item Value Reference Range Interpretation Comme nts WBC (test code = 1001) 2.4 K/UL [...] K/UL COMMENTS (test code = 1016) (NOTE) Delfino OrtaCBC W/AUTO [id number] 00:00:00* Test Item Value Reference Range Interpretation Comme nts WBC (test code = 1001) 2.4 K/UL [...] K/UL COMMENTS (test code = 1016) (NOTE) Delfino OrtaCBC W/AUTO [id number] 00:00:00* Test Item Value Reference Range Interpretation Comme nts WBC (test code = 1001) 2.4 K/UL [...] K/UL COMMENTS (test code = 1016) (NOTE) Delfino OrtaCBC W/AUTO [id number] 00:00:00* Test Item Value Reference Range Interpretation Comme nts WBC (test code = 1001) 2.4 K/UL [...] K/UL COMMENTS (test code = 1016) (NOTE) Delfino OrtaCBC W/AUTO [id number] 00:00:00* Test Item Value Reference Range Interpretation Comme nts WBC (test code = 1001) 2.4 K/UL [...] K/UL COMMENTS (test code = 1016) (NOTE) Delfino Schumacher [facility] W/AUTO [id number] 00:00:00* Test Item Value Reference Range Interpretation Comme nts WBC (test code = 1001) 2.4 K/UL [...] K/UL COMMENTS (test code = 1016) (NOTE) Delfino Endy [facility] W/AUTO [id number] 00:00:00* Test Item Value Reference Range Interpretation Comme nts WBC (test code = 1001) 2.4 K/UL [...] K/UL COMMENTS (test code = 1016) (NOTE) Delfino OrtaCOMPREHENSIVE METABOLIC [id number] 00:00:00* Test Item Value Reference Range Interpretation Comme nts GLUCOSE (test code = 2217) 92 MG/DL BUN (test code = 2208) 20 MG/DL CREATININE (test code = 2214) 1.31 MG/DL eGFR AMER. (test cod e = 47363) 53 ML/MIN/1.73 eGFR NON- AMER. (test code = 31489) 45 ML/MIN/1.73 CALC BUN/CREAT (test code = 2235) 15 RATIO SODIUM (test code = 2231) 140 MEQ/L POTASSIUM (test code = 2228) 4.0 MEQ/L CHLORIDE (test code = 2215) 107 MEQ/L CARBON DIOXIDE (test code = 2206) 22 MEQ/L CALCIUM (test code = 2209) 10.1 MG/DL PROTEIN, TOTAL (test code = 2229) 10.4 G/DL ALBUMIN (test code = 2201) 4.0 G/DL CALC GLOBULIN (test code = 2240) 6.4 G/DL CALC A/G RATIO (test code = 2234) 0.6 RATIO BILIRUBIN, TOTAL (test code = 2207) 0.4 MG/DL ALKALINE PHOSPHATASE (test code = 2204) 88 U/L AST (test code = 2218) 32 U/L ALT (test code = 2219) 16 U/L Delfino OrtaCBC W/AUTO [id number] 00:00:00* Test Item Value Reference Range Interpretation Comme nts WBC (test code = 1001) 3.9 K/UL [...] K/UL COMMENTS (test code = 1016) (NOTE) Delfino Schumacher [facility] DNA [id number] 00:00:00* Test Item Value Reference Range Interpretation Comme nts DIANNA SPECIES (test code = 77225) NEGATIVE G. VAGINALIS (test code = 63399) POSITIVE T. VAGINALIS (test code = 25108) NEGATIVE Delfino Schumacher [facility] [id number] 00:00:00* Test Item Value Reference Range Interpretation Comme nts DIANNA SPECIES (test code = 78405) NEGATIVE G. VAGINALIS (test code = 85870) POSITIVE T. VAGINALIS (test code = 78813) NEGATIVE VAGINAL PATHOGENS DNA [id number] 00:00:00* Test Item Value Reference Range Interpretation Comme nts DIANNA SPECIES (test code = 84442) NEGATIVE G. VAGINALIS (test code = 26038) POSITIVE T. VAGINALIS (test code = 56880) NEGATIVE COMPREHENSIVE METABOLIC [id number] 00:00:00* Test Item Value Reference Range Interpretation Comme nts GLUCOSE (test code = 2217) 92 MG/DL BUN (test code = 2208) 20 MG/DL CREATININE (test code = 2214) 1.31 MG/DL eGFR AMER. (test cod e = 74242) 53 ML/MIN/1.73 eGFR NON- AMER. (test code = 98266) 45 ML/MIN/1.73 CALC BUN/CREAT (test code = 2235) 15 RATIO SODIUM (test code = 2231) 140 MEQ/L POTASSIUM (test code = 2228) 4.0 MEQ/L CHLORIDE (test code = 2215) 107 MEQ/L CARBON DIOXIDE (test code = 2206) 22 MEQ/L CALCIUM (test code = 2209) 10.1 MG/DL PROTEIN, TOTAL (test code = 2229) 10.4 G/DL ALBUMIN (test code = 2201) 4.0 G/DL CALC GLOBULIN (test code = 2240) 6.4 G/DL CALC A/G RATIO (test code = 2234) 0.6 RATIO BILIRUBIN, TOTAL (test code = 2207) 0.4 MG/DL ALKALINE PHOSPHATASE (test code = 2204) 88 U/L AST (test code = 2218) 32 U/L ALT (test code = 2219) 16 U/L COMPREHENSIVE METABOLIC [id number] 00:00:00* Test Item Value Reference Range Interpretation Comme nts GLUCOSE (test code = 2217) 92 MG/DL BUN (test code = 2208) 20 MG/DL CREATININE (test code = 2214) 1.31 MG/DL eGFR AMER. (test cod e = 48210) 53 ML/MIN/1.73 eGFR NON- AMER. (test code = 20250) 45 ML/MIN/1.73 CALC BUN/CREAT (test code = 2235) 15 RATIO SODIUM (test code = 2231) 140 MEQ/L POTASSIUM (test code = 2228) 4.0 MEQ/L CHLORIDE (test code = 2215) 107 MEQ/L CARBON DIOXIDE (test code = 2206) 22 MEQ/L CALCIUM (test code = 2209) 10.1 MG/DL PROTEIN, TOTAL (test code = 2229) 10.4 G/DL ALBUMIN (test code = 2201) 4.0 G/DL CALC GLOBULIN (test code = 2240) 6.4 G/DL CALC A/G RATIO (test code = 2234) 0.6 RATIO BILIRUBIN, TOTAL (test code = 2207) 0.4 MG/DL ALKALINE PHOSPHATASE (test code = 2204) 88 U/L AST (test code = 2218) 32 U/L ALT (test code = 2219) 16 U/L CBC W/AUTO [id number] 00:00:00* Test Item Value Reference Range Interpretation Comme nts WBC (test code = 1001) 3.9 K/UL [...] (test code = 1016) (NOTE) CBC W/AUTO [id number] 00:00:00* Test Item Value Reference Range Interpretation Comme nts WBC (test code = 1001) 3.9 K/UL [...] (test code = 1016) (NOTE) CBC W/AUTO [id number] 00:00:00* Test Item Value Reference Range Interpretation Comme nts WBC (test code = 1001) 3.9 K/UL [...] code = 1016) (NOTE) VAGINAL PATHOGENS DNA [id number] 00:00:00* Test Item Value Reference Range Interpretation Comme nts DIANNA SPECIES (test code = ) NEGATIVE G. VAGINALIS (test code = 47142) POSITIVE T. VAGINALIS (test code = 47005) NEGATIVE VAGINAL PATHOGENS DNA [id number] 00:00:00* Test Item Value Reference Range Interpretation Comme nts DIANNA SPECIES (test code = ) NEGATIVE G. VAGINALIS (test code = 07540) POSITIVE T. VAGINALIS (test code = 95107) NEGATIVE COMPREHENSIVE METABOLIC [id number] 00:00:00* Test Item Value Reference Range Interpretation Comme nts GLUCOSE (test code = 2217) 92 MG/DL BUN (test code = 2208) 20 MG/DL CREATININE (test code = 2214) 1.31 MG/DL eGFR AMER. (test cod e = 17458) 53 ML/MIN/1.73 eGFR NON- AMER. (test code = 56636) 45 ML/MIN/1.73 CALC BUN/CREAT (test code = 2235) 15 RATIO SODIUM (test code = 2231) 140 MEQ/L POTASSIUM (test code = 2228) 4.0 MEQ/L CHLORIDE (test code = 2215) 107 MEQ/L CARBON DIOXIDE (test code = 2206) 22 MEQ/L CALCIUM (test code = 2209) 10.1 MG/DL PROTEIN, TOTAL (test code = 2229) 10.4 G/DL ALBUMIN (test code = 2201) 4.0 G/DL CALC GLOBULIN (test code = 2240) 6.4 G/DL CALC A/G RATIO (test code = 2234) 0.6 RATIO BILIRUBIN, TOTAL (test code = 2207) 0.4 MG/DL ALKALINE PHOSPHATASE (test code = 2204) 88 U/L AST (test code = 2218) 32 U/L ALT (test code = 2219) 16 U/L COMPREHENSIVE METABOLIC [id number] 00:00:00* Test Item Value Reference Range Interpretation Comme nts GLUCOSE (test code = 2217) 92 MG/DL BUN (test code = 2208) 20 MG/DL CREATININE (test code = 2214) 1.31 MG/DL eGFR AMER. (test cod e = 02825) 53 ML/MIN/1.73 eGFR NON- AMER. (test code = 16559) 45 ML/MIN/1.73 CALC BUN/CREAT (test code = 2235) 15 RATIO SODIUM (test code = 2231) 140 MEQ/L POTASSIUM (test code = 2228) 4.0 MEQ/L CHLORIDE (test code = 2215) 107 MEQ/L CARBON DIOXIDE (test code = 2206) 22 MEQ/L CALCIUM (test code = 2209) 10.1 MG/DL PROTEIN, TOTAL (test code = 2229) 10.4 G/DL ALBUMIN (test code = 2201) 4.0 G/DL CALC GLOBULIN (test code = 2240) 6.4 G/DL CALC A/G RATIO (test code = 2234) 0.6 RATIO BILIRUBIN, TOTAL (test code = 2207) 0.4 MG/DL ALKALINE PHOSPHATASE (test code = 2204) 88 U/L AST (test code = 2218) 32 U/L ALT (test code = 2219) 16 U/L CBC W/AUTO [id number] 00:00:00* Test Item Value Reference Range Interpretation Comme nts WBC (test code = 1001) 3.9 K/UL [...] (test code = 1016) (NOTE) CBC W/AUTO [id number] 00:00:00* Test Item Value Reference Range Interpretation Comme nts WBC (test code = 1001) 3.9 K/UL [...] (test code = 1016) (NOTE) CBC W/AUTO [id number] 00:00:00* Test Item Value Reference Range Interpretation Comme nts WBC (test code = 1001) 3.9 K/UL [...] code = 1016) (NOTE) VAGINAL PATHOGENS DNA [id number] 00:00:00* Test Item Value Reference Range Interpretation Comme nts DIANNA SPECIES (test code = ) NEGATIVE G. VAGINALIS (test code = ) POSITIVE T. VAGINALIS (test code = ) NEGATIVE COMPREHENSIVE METABOLIC [id number] 00:00:00* Test Item Value Reference Range Interpretation Comme nts GLUCOSE (test code = 2217) 92 MG/DL BUN (test code = 2208) 20 MG/DL CREATININE (test code = 2214) 1.31 MG/DL eGFR AMER. (test cod e = 34986) 53 ML/MIN/1.73 eGFR NON- AMER. (test code = 05897) 45 ML/MIN/1.73 CALC BUN/CREAT (test code = 2235) 15 RATIO SODIUM (test code = 2231) 140 MEQ/L POTASSIUM (test code = 2228) 4.0 MEQ/L CHLORIDE (test code = 2215) 107 MEQ/L CARBON DIOXIDE (test code = 2206) 22 MEQ/L CALCIUM (test code = 2209) 10.1 MG/DL PROTEIN, TOTAL (test code = 2229) 10.4 G/DL ALBUMIN (test code = 2201) 4.0 G/DL CALC GLOBULIN (test code = 2240) 6.4 G/DL CALC A/G RATIO (test code = 2234) 0.6 RATIO BILIRUBIN, TOTAL (test code = 2207) 0.4 MG/DL ALKALINE PHOSPHATASE (test code = 2204) 88 U/L AST (test code = 2218) 32 U/L ALT (test code = 2219) 16 U/L CBC W/AUTO [id number] 00:00:00* Test Item Value Reference Range Interpretation Comme nts WBC (test code = 1001) 3.9 K/UL [...] (test code = 1016) (NOTE) CBC W/AUTO [id number] 00:00:00* Test Item Value Reference Range Interpretation Comme nts WBC (test code = 1001) 3.9 K/UL [...] code = 1016) (NOTE) VAGINAL PATHOGENS DNA [id number] 00:00:00* Test Item Value Reference Range Interpretation Comme nts DIANNA SPECIES (test code = 98558) NEGATIVE G. VAGINALIS (test code = 38579) POSITIVE T. VAGINALIS (test code = 81617) NEGATIVE VAGINAL PATHOGENS DNA [id number] 00:00:00* Test Item Value Reference Range Interpretation Comme nts DIANNA SPECIES (test code = 84970) NEGATIVE G. VAGINALIS (test code = 89189) POSITIVE T. VAGINALIS (test code = 71212) NEGATIVE COMPREHENSIVE METABOLIC [id number] 00:00:00* Test Item Value Reference Range Interpretation Comme nts GLUCOSE (test code = 2217) 92 MG/DL BUN (test code = 2208) 20 MG/DL CREATININE (test code = 2214) 1.31 MG/DL eGFR AMER. (test cod e = 11546) 53 ML/MIN/1.73 eGFR NON- AMER. (test code = 70661) 45 ML/MIN/1.73 CALC BUN/CREAT (test code = 2235) 15 RATIO SODIUM (test code = 2231) 140 MEQ/L POTASSIUM (test code = 2228) 4.0 MEQ/L CHLORIDE (test code = 2215) 107 MEQ/L CARBON DIOXIDE (test code = 2206) 22 MEQ/L CALCIUM (test code = 2209) 10.1 MG/DL PROTEIN, TOTAL (test code = 2229) 10.4 G/DL ALBUMIN (test code = 2201) 4.0 G/DL CALC GLOBULIN (test code = 2240) 6.4 G/DL CALC A/G RATIO (test code = 2234) 0.6 RATIO BILIRUBIN, TOTAL (test code = 2207) 0.4 MG/DL ALKALINE PHOSPHATASE (test code = 2204) 88 U/L AST (test code = 2218) 32 U/L ALT (test code = 2219) 16 U/L COMPREHENSIVE METABOLIC [id number] 00:00:00* Test Item Value Reference Range Interpretation Comme nts GLUCOSE (test code = 2217) 92 MG/DL BUN (test code = 2208) 20 MG/DL CREATININE (test code = 2214) 1.31 MG/DL eGFR AMER. (test cod e = 37137) 53 ML/MIN/1.73 eGFR NON- AMER. (test code = 80522) 45 ML/MIN/1.73 CALC BUN/CREAT (test code = 2235) 15 RATIO SODIUM (test code = 2231) 140 MEQ/L POTASSIUM (test code = 2228) 4.0 MEQ/L CHLORIDE (test code = 2215) 107 MEQ/L CARBON DIOXIDE (test code = 2206) 22 MEQ/L CALCIUM (test code = 2209) 10.1 MG/DL PROTEIN, TOTAL (test code = 2229) 10.4 G/DL ALBUMIN (test code = 2201) 4.0 G/DL CALC GLOBULIN (test code = 2240) 6.4 G/DL CALC A/G RATIO (test code = 2234) 0.6 RATIO BILIRUBIN, TOTAL (test code = 2207) 0.4 MG/DL ALKALINE PHOSPHATASE (test code = 2204) 88 U/L AST (test code = 2218) 32 U/L ALT (test code = 2219) 16 U/L CBC W/AUTO [id number] 00:00:00* Test Item Value Reference Range Interpretation Comme nts WBC (test code = 1001) 3.9 K/UL [...] (test code = 1016) (NOTE) CBC W/AUTO [id number] 00:00:00* Test Item Value Reference Range Interpretation Comme nts WBC (test code = 1001) 3.9 K/UL [...] (test code = 1016) (NOTE) CBC W/AUTO [id number] 00:00:00* Test Item Value Reference Range Interpretation Comme nts WBC (test code = 1001) 3.9 K/UL [...] (test code = 1016) (NOTE) COMPREHENSIVE METABOLIC [id number] 00:00:00* Test Item Value Reference Range Interpretation Comme nts GLUCOSE (test code = 2217) 92 MG/DL BUN (test code = 2208) 20 MG/DL CREATININE (test code = 2214) 1.31 MG/DL eGFR AMER. (test cod e = 67832) 53 ML/MIN/1.73 eGFR NON- AMER. (test code = 30744) 45 ML/MIN/1.73 CALC BUN/CREAT (test code = 2235) 15 RATIO SODIUM (test code = 2231) 140 MEQ/L POTASSIUM (test code = 2228) 4.0 MEQ/L CHLORIDE (test code = 2215) 107 MEQ/L CARBON DIOXIDE (test code = 2206) 22 MEQ/L CALCIUM (test code = 2209) 10.1 MG/DL PROTEIN, TOTAL (test code = 2229) 10.4 G/DL ALBUMIN (test code = 2201) 4.0 G/DL CALC GLOBULIN (test code = 2240) 6.4 G/DL CALC A/G RATIO (test code = 2234) 0.6 RATIO BILIRUBIN, TOTAL (test code = 2207) 0.4 MG/DL ALKALINE PHOSPHATASE (test code = 2204) 88 U/L AST (test code = 2218) 32 U/L ALT (test code = 2219) 16 U/L Delfino OrtaCBC W/AUTO [id number] 00:00:00* Test Item Value Reference Range Interpretation Comme nts WBC (test code = 1001) 3.9 K/UL [...] K/UL COMMENTS (test code = 1016) (NOTE) Delfino Schumacher [facility] PATHOGENS DNA [id number] 00:00:00* Test Item Value Reference Range Interpretation Comme nts DIANNA SPECIES (test code = ) NEGATIVE G. VAGINALIS (test code = 36958) POSITIVE T. VAGINALIS (test code = 81759) NEGATIVE Delfino Schumacher Austin[facility]AG[facility] PATHOGENS DNA [id number] 00:00:00* Test Item Value Reference Range Interpretation Comme nts DIANNA SPECIES (test code = ) NEGATIVE G. VAGINALIS (test code = 21803) POSITIVE T. VAGINALIS (test code = 73432) NEGATIVE Delfino Schumacher AustinCOMPREHENSIVE METABOLIC [id number] 00:00:00* Test Item Value Reference Range Interpretation Comme nts GLUCOSE (test code = 2217) 92 MG/DL BUN (test code = 2208) 20 MG/DL CREATININE (test code = 2214) 1.31 MG/DL eGFR AMER. (test cod e = 15646) 53 ML/MIN/1.73 eGFR NON- AMER. (test code = 89806) 45 ML/MIN/1.73 CALC BUN/CREAT (test code = 2235) 15 RATIO SODIUM (test code = 2231) 140 MEQ/L POTASSIUM (test code = 2228) 4.0 MEQ/L CHLORIDE (test code = 2215) 107 MEQ/L CARBON DIOXIDE (test code = 2206) 22 MEQ/L CALCIUM (test code = 2209) 10.1 MG/DL PROTEIN, TOTAL (test code = 2229) 10.4 G/DL ALBUMIN (test code = 2201) 4.0 G/DL CALC GLOBULIN (test code = 2240) 6.4 G/DL CALC A/G RATIO (test code = 2234) 0.6 RATIO BILIRUBIN, TOTAL (test code = 2207) 0.4 MG/DL ALKALINE PHOSPHATASE (test code = 2204) 88 U/L AST (test code = 2218) 32 U/L ALT (test code = 2219) 16 U/L Delfino OrtaCBC W/AUTO [id number] 00:00:00* Test Item Value Reference Range Interpretation Comme nts WBC (test code = 1001) 3.9 K/UL [...] K/UL COMMENTS (test code = 1016) (NOTE) Delfino OrtaCOMPREHENSIVE METABOLIC [id number] 00:00:00* Test Item Value Reference Range Interpretation Comme nts GLUCOSE (test code = 2217) 92 MG/DL BUN (test code = 2208) 20 MG/DL CREATININE (test code = 2214) 1.31 MG/DL eGFR AMER. (test cod e = 77254) 53 ML/MIN/1.73 eGFR NON- AMER. (test code = 37409) 45 ML/MIN/1.73 CALC BUN/CREAT (test code = 2235) 15 RATIO SODIUM (test code = 2231) 140 MEQ/L POTASSIUM (test code = 2228) 4.0 MEQ/L CHLORIDE (test code = 2215) 107 MEQ/L CARBON DIOXIDE (test code = 2206) 22 MEQ/L CALCIUM (test code = 2209) 10.1 MG/DL PROTEIN, TOTAL (test code = 2229) 10.4 G/DL ALBUMIN (test code = 2201) 4.0 G/DL CALC GLOBULIN (test code = 2240) 6.4 G/DL CALC A/G RATIO (test code = 2234) 0.6 RATIO BILIRUBIN, TOTAL (test code = 2207) 0.4 MG/DL ALKALINE PHOSPHATASE (test code = 2204) 88 U/L AST (test code = 2218) 32 U/L ALT (test code = 2219) 16 U/L Delfino OrtaCBC W/AUTO [id number] 00:00:00* Test Item Value Reference Range Interpretation Comme nts WBC (test code = 1001) 3.9 K/UL [...] K/UL COMMENTS (test code = 1016) (NOTE) Delfino OrtaVAGINAL PATHOGENS DNA [id number] 00:00:00* Test Item Value Reference Range Interpretation Comme nts DIANNA SPECIES (test code = ) NEGATIVE G. VAGINALIS (test code = ) POSITIVE T. VAGINALIS (test code = ) NEGATIVE Delfino OrtaCOMPREHENSIVE METABOLIC [id number] 00:00:00* Test Item Value Reference Range Interpretation Comme nts GLUCOSE (test code = 2217) 92 MG/DL BUN (test code = 2208) 20 MG/DL CREATININE (test code = 2214) 1.31 MG/DL eGFR AMER. (test cod e = 86954) 53 ML/MIN/1.73 eGFR NON- AMER. (test code = 66481) 45 ML/MIN/1.73 CALC BUN/CREAT (test code = 2235) 15 RATIO SODIUM (test code = 2231) 140 MEQ/L POTASSIUM (test code = 2228) 4.0 MEQ/L CHLORIDE (test code = 2215) 107 MEQ/L CARBON DIOXIDE (test code = 2206) 22 MEQ/L CALCIUM (test code = 2209) 10.1 MG/DL PROTEIN, TOTAL (test code = 2229) 10.4 G/DL ALBUMIN (test code = 2201) 4.0 G/DL CALC GLOBULIN (test code = 2240) 6.4 G/DL CALC A/G RATIO (test code = 2234) 0.6 RATIO BILIRUBIN, TOTAL (test code = 2207) 0.4 MG/DL ALKALINE PHOSPHATASE (test code = 2204) 88 U/L AST (test code = 2218) 32 U/L ALT (test code = 2219) 16 U/L Delfino OrtaCBC W/AUTO [id number] 00:00:00* Test Item Value Reference Range Interpretation Comme nts WBC (test code = 1001) 3.9 K/UL [...] K/UL COMMENTS (test code = 1016) (NOTE) Delfino Schumacher YouVAGINAL PATHOGENS DNA [id number] 00:00:00* Test Item Value Reference Range Interpretation Comme nts DIANNA SPECIES (test code = ) NEGATIVE G. VAGINALIS (test code = 93444) POSITIVE T. VAGINALIS (test code = 80598) NEGATIVE Delfino OrtaCOMPREHENSIVE METABOLIC [id number] 00:00:00* Test Item Value Reference Range Interpretation Comme nts GLUCOSE (test code = 2217) 92 MG/DL BUN (test code = 2208) 20 MG/DL CREATININE (test code = 2214) 1.31 MG/DL eGFR AMER. (test cod e = 11146) 53 ML/MIN/1.73 eGFR NON- AMER. (test code = 43254) 45 ML/MIN/1.73 CALC BUN/CREAT (test code = 2235) 15 RATIO SODIUM (test code = 2231) 140 MEQ/L POTASSIUM (test code = 2228) 4.0 MEQ/L CHLORIDE (test code = 2215) 107 MEQ/L CARBON DIOXIDE (test code = 2206) 22 MEQ/L CALCIUM (test code = 2209) 10.1 MG/DL PROTEIN, TOTAL (test code = 2229) 10.4 G/DL ALBUMIN (test code = 2201) 4.0 G/DL CALC GLOBULIN (test code = 2240) 6.4 G/DL CALC A/G RATIO (test code = 2234) 0.6 RATIO BILIRUBIN, TOTAL (test code = 2207) 0.4 MG/DL ALKALINE PHOSPHATASE (test code = 2204) 88 U/L AST (test code = 2218) 32 U/L ALT (test code = 2219) 16 U/L Delfino OrtaCBC W/AUTO [id number] 00:00:00* Test Item Value Reference Range Interpretation Comme nts WBC (test code = 1001) 3.9 K/UL [...] K/UL COMMENTS (test code = 1016) (NOTE) Delfino OrtaVAGINAL PATHOGENS DNA [id number] 00:00:00* Test Item Value Reference Range Interpretation Comme nts DIANNA SPECIES (test code = ) NEGATIVE G. VAGINALIS (test code = ) POSITIVE T. VAGINALIS (test code = ) NEGATIVE Delfino OrtaCOMPREHENSIVE METABOLIC [id number] 00:00:00* Test Item Value Reference Range Interpretation Comme nts GLUCOSE (test code = 2217) 92 MG/DL BUN (test code = 2208) 20 MG/DL CREATININE (test code = 2214) 1.31 MG/DL eGFR AMER. (test cod e = 01731) 53 ML/MIN/1.73 eGFR NON- AMER. (test code = 19152) 45 ML/MIN/1.73 CALC BUN/CREAT (test code = 2235) 15 RATIO SODIUM (test code = 2231) 140 MEQ/L POTASSIUM (test code = 2228) 4.0 MEQ/L CHLORIDE (test code = 2215) 107 MEQ/L CARBON DIOXIDE (test code = 2206) 22 MEQ/L CALCIUM (test code = 2209) 10.1 MG/DL PROTEIN, TOTAL (test code = 2229) 10.4 G/DL ALBUMIN (test code = 2201) 4.0 G/DL CALC GLOBULIN (test code = 2240) 6.4 G/DL CALC A/G RATIO (test code = 2234) 0.6 RATIO BILIRUBIN, TOTAL (test code = 2207) 0.4 MG/DL ALKALINE PHOSPHATASE (test code = 2204) 88 U/L AST (test code = 2218) 32 U/L ALT (test code = 2219) 16 U/L Delfino OrtaCBC W/AUTO [id number] 00:00:00* Test Item Value Reference Range Interpretation Comme nts WBC (test code = 1001) 3.9 K/UL [...] K/UL COMMENTS (test code = 1016) (NOTE) Delfino OrtaVAGINAL PATHOGENS DNA [id number] 00:00:00* Test Item Value Reference Range Interpretation Comme nts DIANNA SPECIES (test code = ) NEGATIVE G. VAGINALIS (test code = ) POSITIVE T. VAGINALIS (test code = ) NEGATIVE Delfino OrtaCOMPREHENSIVE METABOLIC [id number] 00:00:00* Test Item Value Reference Range Interpretation Comme nts GLUCOSE (test code = 2217) 92 MG/DL BUN (test code = 2208) 20 MG/DL CREATININE (test code = 2214) 1.31 MG/DL eGFR AMER. (test cod e = 97106) 53 ML/MIN/1.73 eGFR NON- AMER. (test code = 45260) 45 ML/MIN/1.73 CALC BUN/CREAT (test code = 2235) 15 RATIO SODIUM (test code = 2231) 140 MEQ/L POTASSIUM (test code = 2228) 4.0 MEQ/L CHLORIDE (test code = 2215) 107 MEQ/L CARBON DIOXIDE (test code = 2206) 22 MEQ/L CALCIUM (test code = 2209) 10.1 MG/DL PROTEIN, TOTAL (test code = 2229) 10.4 G/DL ALBUMIN (test code = 2201) 4.0 G/DL CALC GLOBULIN (test code = 2240) 6.4 G/DL CALC A/G RATIO (test code = 2234) 0.6 RATIO BILIRUBIN, TOTAL (test code = 2207) 0.4 MG/DL ALKALINE PHOSPHATASE (test code = 2204) 88 U/L AST (test code = 2218) 32 U/L ALT (test code = 2219) 16 U/L Delfino OrtaCBC W/AUTO [id number] 00:00:00* Test Item Value Reference Range Interpretation Comme nts WBC (test code = 1001) 3.9 K/UL [...] K/UL COMMENTS (test code = 1016) (NOTE) Delfino OrtaVAGINAL PATHOGENS DNA [id number] 00:00:00* Test Item Value Reference Range Interpretation Comme nts DIANNA SPECIES (test code = ) NEGATIVE G. VAGINALIS (test code = ) POSITIVE T. VAGINALIS (test code = ) NEGATIVE Delfino OrtaCBC W/AUTO [id number] 00:00:00* Test Item Value Reference Range Interpretation Comme nts WBC (test code = 1001) 2.9 K/UL [...] COUNT (test code = 1015) 212 K/UL Delfino OrtaLIPID [id number] 00:00:00* Test Item Value Reference Range Interpretation Comme nts CHOLESTEROL (test code = 2210) 141 MG/DL TRIGLYCERIDES (test code = 2232) 71 MG/DL HDL CHOLESTEROL (test code = 2220) 69 MG/DL CALC LDL CHOL (test code = 2237) 58 MG/DL RISK RATIO LDL/HDL (test cod e = 2238) 0.84 RATIO Delfino OrtaCOMPREHENSIVE METABOLIC [id number] 00:00:00* Test Item Value Reference Range Interpretation Comme nts GLUCOSE (test code = 2217) 95 MG/DL BUN (test code = 2208) 21 MG/DL CREATININE (test code = 2214) 0.87 MG/DL eGFR AMER. (test cod e = 48069) 87 ML/MIN/1.73 eGFR NON- AMER. (test code = 18261) 75 ML/MIN/1.73 CALC BUN/CREAT (test code = 2235) 24 RATIO SODIUM (test code = 2231) 139 MEQ/L POTASSIUM (test code = 2228) 4.4 MEQ/L CHLORIDE (test code = 2215) 109 MEQ/L CARBON DIOXIDE (test code = 2206) 21 MEQ/L CALCIUM (test code = 2209) 9.4 MG/DL PROTEIN, TOTAL (test code = 2229) 9.8 G/DL ALBUMIN (test code = 2201) 3.6 G/DL CALC GLOBULIN (test code = 2240) 6.2 G/DL CALC A/G RATIO (test code = 2234) 0.6 RATIO BILIRUBIN, TOTAL (test code = 2207) 0.5 MG/DL ALKALINE PHOSPHATASE (test code = 2204) 83 U/L AST (test code = 2218) 27 U/L ALT (test code = 2219) 8 U/L Delfino OrtaURIC [id number] 00:00:00* Test Item Value Reference Range Interpretation Comme [facility] URIC ACID (test code = 2233) 8.5 MG/DL Delfino OrtaVITAMIN [id number] 00:00:00* Test Item Value Reference Range Interpretation Comme [facility] VITAMIN B-12 (test code = 2840) 335 PG/ML Delfino OrtaCBC W/AUTO [id number] 00:00:00* Test Item Value Reference Range Interpretation Comme nts WBC (test code = 1001) 2.9 K/UL [...] COUNT (test code = 1015) 212 K/UL Delfino OrtaLIPID [id number] 00:00:00* Test Item Value Reference Range Interpretation Comme nts CHOLESTEROL (test code = 2210) 141 MG/DL TRIGLYCERIDES (test code = 2232) 71 MG/DL HDL CHOLESTEROL (test code = 2220) 69 MG/DL CALC LDL CHOL (test code = 2237) 58 MG/DL RISK RATIO LDL/HDL (test cod e = 2238) 0.84 RATIO Delfino OrtaCBC W/AUTO [id number] 00:00:00* Test Item Value Reference Range Interpretation Comme nts WBC (test code = 1001) 2.9 K/UL [...] code = 1015) 212 K/UL CBC W/AUTO [id number] 00:00:00* Test Item Value Reference Range Interpretation Comme nts WBC (test code = 1001) 2.9 K/UL [...] code = 1015) 212 K/UL CBC W/AUTO [id number] 00:00:00* Test Item Value Reference Range Interpretation Comme nts WBC (test code = 1001) 2.9 K/UL [...] (test code = 1015) 212 K/UL LIPID [id number] 00:00:00* Test Item Value Reference Range Interpretation Comme nts CHOLESTEROL (test code = 2210) 141 MG/DL TRIGLYCERIDES (test code = 2232) 71 MG/DL HDL CHOLESTEROL (test code = 2220) 69 MG/DL CALC LDL CHOL (test code = 2237) 58 MG/DL RISK RATIO LDL/HDL (test cod e = 2238) 0.84 RATIO LIPID [id number] 00:00:00* Test Item Value Reference Range Interpretation Comme nts CHOLESTEROL (test code = 2210) 141 MG/DL TRIGLYCERIDES (test code = 2232) 71 MG/DL HDL CHOLESTEROL (test code = 2220) 69 MG/DL CALC LDL CHOL (test code = 2237) 58 MG/DL RISK RATIO LDL/HDL (test cod e = 2238) 0.84 RATIO COMPREHENSIVE METABOLIC [id number] 00:00:00* Test Item Value Reference Range Interpretation Comme nts GLUCOSE (test code = 2217) 95 MG/DL BUN (test code = 2208) 21 MG/DL CREATININE (test code = 2214) 0.87 MG/DL eGFR AMER. (test cod e = 94723) 87 ML/MIN/1.73 eGFR NON- AMER. (test code = 32882) 75 ML/MIN/1.73 CALC BUN/CREAT (test code = 2235) 24 RATIO SODIUM (test code = 2231) 139 MEQ/L POTASSIUM (test code = 2228) 4.4 MEQ/L CHLORIDE (test code = 2215) 109 MEQ/L CARBON DIOXIDE (test code = 2206) 21 MEQ/L CALCIUM (test code = 2209) 9.4 MG/DL PROTEIN, TOTAL (test code = 2229) 9.8 G/DL ALBUMIN (test code = 2201) 3.6 G/DL CALC GLOBULIN (test code = 2240) 6.2 G/DL CALC A/G RATIO (test code = 2234) 0.6 RATIO BILIRUBIN, TOTAL (test code = 2207) 0.5 MG/DL ALKALINE PHOSPHATASE (test code = 2204) 83 U/L AST (test code = 2218) 27 U/L ALT (test code = 2219) 8 U/L COMPREHENSIVE METABOLIC [id number] 00:00:00* Test Item Value Reference Range Interpretation Comme nts GLUCOSE (test code = 2217) 95 MG/DL BUN (test code = 2208) 21 MG/DL CREATININE (test code = 2214) 0.87 MG/DL eGFR AMER. (test cod e = 66463) 87 ML/MIN/1.73 eGFR NON- AMER. (test code = 97941) 75 ML/MIN/1.73 CALC BUN/CREAT (test code = 2235) 24 RATIO SODIUM (test code = 2231) 139 MEQ/L POTASSIUM (test code = 2228) 4.4 MEQ/L CHLORIDE (test code = 2215) 109 MEQ/L CARBON DIOXIDE (test code = 2206) 21 MEQ/L CALCIUM (test code = 2209) 9.4 MG/DL PROTEIN, TOTAL (test code = 2229) 9.8 G/DL ALBUMIN (test code = 2201) 3.6 G/DL CALC GLOBULIN (test code = 2240) 6.2 G/DL CALC A/G RATIO (test code = 2234) 0.6 RATIO BILIRUBIN, TOTAL (test code = 2207) 0.5 MG/DL ALKALINE PHOSPHATASE (test code = 2204) 83 U/L AST (test code = 2218) 27 U/L ALT (test code = 2219) 8 U/L URIC [id number] 00:00:00* Test Item Value Reference Range Interpretation Comme nts URIC ACID (test code = 2233) 8.5 MG/DL URIC [id number] 00:00:00* Test Item Value Reference Range Interpretation Comme nts URIC ACID (test code = 2233) 8.5 MG/DL VITAMIN [id number] 00:00:00* Test Item Value Reference Range Interpretation Comme nts VITAMIN B-12 (test code = 2840) 335 PG/ML VITAMIN [id number] 00:00:00* Test Item Value Reference Range Interpretation Comme nts VITAMIN B-12 (test code = 2840) 335 PG/ML VITAMIN [id number] 00:00:00* Test Item Value Reference Range Interpretation Comme nts VITAMIN B-12 (test code = 2840) 335 PG/ML CBC W/AUTO [id number] 00:00:00* Test Item Value Reference Range Interpretation Comme nts WBC (test code = 1001) 2.9 K/UL [...] code = 1015) 212 K/UL CBC W/AUTO [id number] 00:00:00* Test Item Value Reference Range Interpretation Comme nts WBC (test code = 1001) 2.9 K/UL [...] code = 1015) 212 K/UL CBC W/AUTO [id number] 00:00:00* Test Item Value Reference Range Interpretation Comme nts WBC (test code = 1001) 2.9 K/UL [...] (test code = 1015) 212 K/UL LIPID [id number] 00:00:00* Test Item Value Reference Range Interpretation Comme nts CHOLESTEROL (test code = 2210) 141 MG/DL TRIGLYCERIDES (test code = 2232) 71 MG/DL HDL CHOLESTEROL (test code = 2220) 69 MG/DL CALC LDL CHOL (test code = 2237) 58 MG/DL RISK RATIO LDL/HDL (test cod e = 2238) 0.84 RATIO LIPID [id number] 00:00:00* Test Item Value Reference Range Interpretation Comme nts CHOLESTEROL (test code = 2210) 141 MG/DL TRIGLYCERIDES (test code = 2232) 71 MG/DL HDL CHOLESTEROL (test code = 2220) 69 MG/DL CALC LDL CHOL (test code = 2237) 58 MG/DL RISK RATIO LDL/HDL (test cod e = 2238) 0.84 RATIO COMPREHENSIVE METABOLIC [id number] 00:00:00* Test Item Value Reference Range Interpretation Comme nts GLUCOSE (test code = 2217) 95 MG/DL BUN (test code = 2208) 21 MG/DL CREATININE (test code = 2214) 0.87 MG/DL eGFR AMER. (test cod e = 87616) 87 ML/MIN/1.73 eGFR NON- AMER. (test code = 66633) 75 ML/MIN/1.73 CALC BUN/CREAT (test code = 2235) 24 RATIO SODIUM (test code = 2231) 139 MEQ/L POTASSIUM (test code = 2228) 4.4 MEQ/L CHLORIDE (test code = 2215) 109 MEQ/L CARBON DIOXIDE (test code = 2206) 21 MEQ/L CALCIUM (test code = 2209) 9.4 MG/DL PROTEIN, TOTAL (test code = 2229) 9.8 G/DL ALBUMIN (test code = 2201) 3.6 G/DL CALC GLOBULIN (test code = 2240) 6.2 G/DL CALC A/G RATIO (test code = 2234) 0.6 RATIO BILIRUBIN, TOTAL (test code = 2207) 0.5 MG/DL ALKALINE PHOSPHATASE (test code = 2204) 83 U/L AST (test code = 2218) 27 U/L ALT (test code = 2219) 8 U/L COMPREHENSIVE METABOLIC [id number] 00:00:00* Test Item Value Reference Range Interpretation Comme nts GLUCOSE (test code = 2217) 95 MG/DL BUN (test code = 2208) 21 MG/DL CREATININE (test code = 2214) 0.87 MG/DL eGFR AMER. (test cod e = 63631) 87 ML/MIN/1.73 eGFR NON- AMER. (test code = 08308) 75 ML/MIN/1.73 CALC BUN/CREAT (test code = 2235) 24 RATIO SODIUM (test code = 2231) 139 MEQ/L POTASSIUM (test code = 2228) 4.4 MEQ/L CHLORIDE (test code = 2215) 109 MEQ/L CARBON DIOXIDE (test code = 2206) 21 MEQ/L CALCIUM (test code = 2209) 9.4 MG/DL PROTEIN, TOTAL (test code = 2229) 9.8 G/DL ALBUMIN (test code = 2201) 3.6 G/DL CALC GLOBULIN (test code = 2240) 6.2 G/DL CALC A/G RATIO (test code = 2234) 0.6 RATIO BILIRUBIN, TOTAL (test code = 2207) 0.5 MG/DL ALKALINE PHOSPHATASE (test code = 2204) 83 U/L AST (test code = 2218) 27 U/L ALT (test code = 2219) 8 U/L URIC [id number] 00:00:00* Test Item Value Reference Range Interpretation Comme nts URIC ACID (test code = 2233) 8.5 MG/DL URIC [id number] 00:00:00* Test Item Value Reference Range Interpretation Comme nts URIC ACID (test code = 2233) 8.5 MG/DL VITAMIN [id number] 00:00:00* Test Item Value Reference Range Interpretation Comme nts VITAMIN B-12 (test code = 2840) 335 PG/ML VITAMIN [id number] 00:00:00* Test Item Value Reference Range Interpretation Comme nts VITAMIN B-12 (test code = 2840) 335 PG/ML VITAMIN [id number] 00:00:00* Test Item Value Reference Range Interpretation Comme nts VITAMIN B-12 (test code = 2840) 335 PG/ML CBC W/AUTO [id number] 00:00:00* Test Item Value Reference Range Interpretation Comme nts WBC (test code = 1001) 2.9 K/UL [...] code = 1015) 212 K/UL CBC W/AUTO [id number] 00:00:00* Test Item Value Reference Range Interpretation Comme nts WBC (test code = 1001) 2.9 K/UL [...] (test code = 1015) 212 K/UL LIPID [id number] 00:00:00* Test Item Value Reference Range Interpretation Comme nts CHOLESTEROL (test code = 2210) 141 MG/DL TRIGLYCERIDES (test code = 2232) 71 MG/DL HDL CHOLESTEROL (test code = 2220) 69 MG/DL CALC LDL CHOL (test code = 2237) 58 MG/DL RISK RATIO LDL/HDL (test cod e = 2238) 0.84 RATIO COMPREHENSIVE METABOLIC [id number] 00:00:00* Test Item Value Reference Range Interpretation Comme nts GLUCOSE (test code = 2217) 95 MG/DL BUN (test code = 2208) 21 MG/DL CREATININE (test code = 2214) 0.87 MG/DL eGFR AMER. (test cod e = 61346) 87 ML/MIN/1.73 eGFR NON- AMER. (test code = 48322) 75 ML/MIN/1.73 CALC BUN/CREAT (test code = 2235) 24 RATIO SODIUM (test code = 2231) 139 MEQ/L POTASSIUM (test code = 2228) 4.4 MEQ/L CHLORIDE (test code = 2215) 109 MEQ/L CARBON DIOXIDE (test code = 2206) 21 MEQ/L CALCIUM (test code = 2209) 9.4 MG/DL PROTEIN, TOTAL (test code = 2229) 9.8 G/DL ALBUMIN (test code = 2201) 3.6 G/DL CALC GLOBULIN (test code = 2240) 6.2 G/DL CALC A/G RATIO (test code = 2234) 0.6 RATIO BILIRUBIN, TOTAL (test code = 2207) 0.5 MG/DL ALKALINE PHOSPHATASE (test code = 2204) 83 U/L AST (test code = 2218) 27 U/L ALT (test code = 2219) 8 U/L URIC [id number] 00:00:00* Test Item Value Reference Range Interpretation Comme nts URIC ACID (test code = 2233) 8.5 MG/DL VITAMIN [id number] 00:00:00* Test Item Value Reference Range Interpretation Comme nts VITAMIN B-12 (test code = 2840) 335 PG/ML VITAMIN [id number] 00:00:00* Test Item Value Reference Range Interpretation Comme nts VITAMIN B-12 (test code = 2840) 335 PG/ML CBC W/AUTO [id number] 00:00:00* Test Item Value Reference Range Interpretation Comme nts WBC (test code = 1001) 2.9 K/UL [...] code = 1015) 212 K/UL CBC W/AUTO [id number] 00:00:00* Test Item Value Reference Range Interpretation Comme nts WBC (test code = 1001) 2.9 K/UL [...] code = 1015) 212 K/UL CBC W/AUTO [id number] 00:00:00* Test Item Value Reference Range Interpretation Comme nts WBC (test code = 1001) 2.9 K/UL [...] (test code = 1015) 212 K/UL LIPID [id number] 00:00:00* Test Item Value Reference Range Interpretation Comme nts CHOLESTEROL (test code = 2210) 141 MG/DL TRIGLYCERIDES (test code = 2232) 71 MG/DL HDL CHOLESTEROL (test code = 2220) 69 MG/DL CALC LDL CHOL (test code = 2237) 58 MG/DL RISK RATIO LDL/HDL (test cod e = 2238) 0.84 RATIO LIPID [id number] 00:00:00* Test Item Value Reference Range Interpretation Comme nts CHOLESTEROL (test code = 2210) 141 MG/DL TRIGLYCERIDES (test code = 2232) 71 MG/DL HDL CHOLESTEROL (test code = 2220) 69 MG/DL CALC LDL CHOL (test code = 2237) 58 MG/DL RISK RATIO LDL/HDL (test cod e = 2238) 0.84 RATIO COMPREHENSIVE METABOLIC [id number] 00:00:00* Test Item Value Reference Range Interpretation Comme nts GLUCOSE (test code = 2217) 95 MG/DL BUN (test code = 2208) 21 MG/DL CREATININE (test code = 2214) 0.87 MG/DL eGFR AMER. (test cod e = 42462) 87 ML/MIN/1.73 eGFR NON- AMER. (test code = 07508) 75 ML/MIN/1.73 CALC BUN/CREAT (test code = 2235) 24 RATIO SODIUM (test code = 2231) 139 MEQ/L POTASSIUM (test code = 2228) 4.4 MEQ/L CHLORIDE (test code = 2215) 109 MEQ/L CARBON DIOXIDE (test code = 2206) 21 MEQ/L CALCIUM (test code = 2209) 9.4 MG/DL PROTEIN, TOTAL (test code = 2229) 9.8 G/DL ALBUMIN (test code = 2201) 3.6 G/DL CALC GLOBULIN (test code = 2240) 6.2 G/DL CALC A/G RATIO (test code = 2234) 0.6 RATIO BILIRUBIN, TOTAL (test code = 2207) 0.5 MG/DL ALKALINE PHOSPHATASE (test code = 2204) 83 U/L AST (test code = 2218) 27 U/L ALT (test code = 2219) 8 U/L COMPREHENSIVE METABOLIC [id number] 00:00:00* Test Item Value Reference Range Interpretation Comme nts GLUCOSE (test code = 2217) 95 MG/DL BUN (test code = 2208) 21 MG/DL CREATININE (test code = 2214) 0.87 MG/DL eGFR AMER. (test cod e = 50671) 87 ML/MIN/1.73 eGFR NON- AMER. (test code = 09260) 75 ML/MIN/1.73 CALC BUN/CREAT (test code = 2235) 24 RATIO SODIUM (test code = 2231) 139 MEQ/L POTASSIUM (test code = 2228) 4.4 MEQ/L CHLORIDE (test code = 2215) 109 MEQ/L CARBON DIOXIDE (test code = 2206) 21 MEQ/L CALCIUM (test code = 2209) 9.4 MG/DL PROTEIN, TOTAL (test code = 2229) 9.8 G/DL ALBUMIN (test code = 2201) 3.6 G/DL CALC GLOBULIN (test code = 2240) 6.2 G/DL CALC A/G RATIO (test code = 2234) 0.6 RATIO BILIRUBIN, TOTAL (test code = 2207) 0.5 MG/DL ALKALINE PHOSPHATASE (test code = 2204) 83 U/L AST (test code = 2218) 27 U/L ALT (test code = 2219) 8 U/L URIC [id number] 00:00:00* Test Item Value Reference Range Interpretation Comme [facility] URIC ACID (test code = 2233) 8.5 MG/DL URIC [id number] 00:00:00* Test Item Value Reference Range Interpretation Comme [facility] URIC ACID (test code = 2233) 8.5 MG/DL VITAMIN [id number] 00:00:00* Test Item Value Reference Range Interpretation Comme [facility] VITAMIN B-12 (test code = 2840) 335 PG/ML VITAMIN [id number] 00:00:00* Test Item Value Reference Range Interpretation Comme [facility] VITAMIN B-12 (test code = 2840) 335 PG/ML VITAMIN [id number] 00:00:00* Test Item Value Reference Range Interpretation Comme [facility] VITAMIN B-12 (test code = 2840) 335 PG/ML CBC W/AUTO [id number] 00:00:00* Test Item Value Reference Range Interpretation Comme nts WBC (test code = 1001) 2.9 K/UL [...] COUNT (test code = 1015) 212 K/UL Delf[facility] OrtaCOMPREHENSIVE METABOLIC [id number] 00:00:00* Test Item Value Reference Range Interpretation Comme nts GLUCOSE (test code = 2217) 95 MG/DL BUN (test code = 2208) 21 MG/DL CREATININE (test code = 2214) 0.87 MG/DL eGFR AMER. (test cod e = 68217) 87 ML/MIN/1.73 eGFR NON- AMER. (test code = 82491) 75 ML/MIN/1.73 CALC BUN/CREAT (test code = 2235) 24 RATIO SODIUM (test code = 2231) 139 MEQ/L POTASSIUM (test code = 2228) 4.4 MEQ/L CHLORIDE (test code = 2215) 109 MEQ/L CARBON DIOXIDE (test code = 2206) 21 MEQ/L CALCIUM (test code = 2209) 9.4 MG/DL PROTEIN, TOTAL (test code = 2229) 9.8 G/DL ALBUMIN (test code = 2201) 3.6 G/DL CALC GLOBULIN (test code = 2240) 6.2 G/DL CALC A/G RATIO (test code = 2234) 0.6 RATIO BILIRUBIN, TOTAL (test code = 2207) 0.5 MG/DL ALKALINE PHOSPHATASE (test code = 2204) 83 U/L AST (test code = 2218) 27 U/L ALT (test code = 2219) 8 U/L Delfino OrtaURIC [id number] 00:00:00* Test Item Value Reference Range Interpretation Comme nts URIC ACID (test code = 2233) 8.5 MG/DL Delfino OrtaVITAMIN [id number] 00:00:00* Test Item Value Reference Range Interpretation Comme nts VITAMIN B-12 (test code = 2840) 335 PG/ML Delfino OrtaCBC W/AUTO [id number] 00:00:00* Test Item Value Reference Range Interpretation Comme nts WBC (test code = 1001) 2.9 K/UL [...] COUNT (test code = 1015) 212 K/UL Delfino OrtaLIPID [id number] 00:00:00* Test Item Value Reference Range Interpretation Comme nts CHOLESTEROL (test code = 2210) 141 MG/DL TRIGLYCERIDES (test code = 2232) 71 MG/DL HDL CHOLESTEROL (test code = 2220) 69 MG/DL CALC LDL CHOL (test code = 2237) 58 MG/DL RISK RATIO LDL/HDL (test cod e = 2238) 0.84 RATIO Delfino OrtaCOMPREHENSIVE METABOLIC [id number] 00:00:00* Test Item Value Reference Range Interpretation Comme nts GLUCOSE (test code = 2217) 95 MG/DL BUN (test code = 2208) 21 MG/DL CREATININE (test code = 2214) 0.87 MG/DL eGFR AMER. (test cod e = 17657) 87 ML/MIN/1.73 eGFR NON- AMER. (test code = 55894) 75 ML/MIN/1.73 CALC BUN/CREAT (test code = 2235) 24 RATIO SODIUM (test code = 2231) 139 MEQ/L POTASSIUM (test code = 2228) 4.4 MEQ/L CHLORIDE (test code = 2215) 109 MEQ/L CARBON DIOXIDE (test code = 2206) 21 MEQ/L CALCIUM (test code = 2209) 9.4 MG/DL PROTEIN, TOTAL (test code = 2229) 9.8 G/DL ALBUMIN (test code = 2201) 3.6 G/DL CALC GLOBULIN (test code = 2240) 6.2 G/DL CALC A/G RATIO (test code = 2234) 0.6 RATIO BILIRUBIN, TOTAL (test code = 2207) 0.5 MG/DL ALKALINE PHOSPHATASE (test code = 2204) 83 U/L AST (test code = 2218) 27 U/L ALT (test code = 2219) 8 U/L Delfino OrtaURIC [id number] 00:00:00* Test Item Value Reference Range Interpretation Comme [facility] URIC ACID (test code = 2233) 8.5 MG/DL Delfino OrtaVITAMIN [id number] 00:00:00* Test Item Value Reference Range Interpretation Comme [facility] VITAMIN B-12 (test code = 2840) 335 PG/ML Delfino OrtaLIPID [id number] 00:00:00* Test Item Value Reference Range Interpretation Comme nts CHOLESTEROL (test code = 2210) 141 MG/DL TRIGLYCERIDES (test code = 2232) 71 MG/DL HDL CHOLESTEROL (test code = 2220) 69 MG/DL CALC LDL CHOL (test code = 2237) 58 MG/DL RISK RATIO LDL/HDL (test cod e = 2238) 0.84 RATIO Delfino OrtaCOMPREHENSIVE METABOLIC [id number] 00:00:00* Test Item Value Reference Range Interpretation Comme nts GLUCOSE (test code = 2217) 95 MG/DL BUN (test code = 2208) 21 MG/DL CREATININE (test code = 2214) 0.87 MG/DL eGFR AMER. (test cod e = 67499) 87 ML/MIN/1.73 eGFR NON- AMER. (test code = 42523) 75 ML/MIN/1.73 CALC BUN/CREAT (test code = 2235) 24 RATIO SODIUM (test code = 2231) 139 MEQ/L POTASSIUM (test code = 2228) 4.4 MEQ/L CHLORIDE (test code = 2215) 109 MEQ/L CARBON DIOXIDE (test code = 2206) 21 MEQ/L CALCIUM (test code = 2209) 9.4 MG/DL PROTEIN, TOTAL (test code = 2229) 9.8 G/DL ALBUMIN (test code = 2201) 3.6 G/DL CALC GLOBULIN (test code = 2240) 6.2 G/DL CALC A/G RATIO (test code = 2234) 0.6 RATIO BILIRUBIN, TOTAL (test code = 2207) 0.5 MG/DL ALKALINE PHOSPHATASE (test code = 2204) 83 U/L AST (test code = 2218) 27 U/L ALT (test code = 2219) 8 U/L Delfino OrtaURIC [id number] 00:00:00* Test Item Value Reference Range Interpretation Comme [facility] URIC ACID (test code = 2233) 8.5 MG/DL Delfino OrtaVITAMIN [id number] 00:00:00* Test Item Value Reference Range Interpretation Comme [facility] VITAMIN B-12 (test code = 2840) 335 PG/ML Delfino OrtaCBC W/AUTO [id number] 00:00:00* Test Item Value Reference Range Interpretation Comme nts WBC (test code = 1001) 2.9 K/UL [...] COUNT (test code = 1015) 212 K/UL Delfino OrtaLIPID [id number] 00:00:00* Test Item Value Reference Range Interpretation Comme nts CHOLESTEROL (test code = 2210) 141 MG/DL TRIGLYCERIDES (test code = 2232) 71 MG/DL HDL CHOLESTEROL (test code = 2220) 69 MG/DL CALC LDL CHOL (test code = 2237) 58 MG/DL RISK RATIO LDL/HDL (test cod e = 2238) 0.84 RATIO Delfino OrtaCOMPREHENSIVE METABOLIC [id number] 00:00:00* Test Item Value Reference Range Interpretation Comme [facility] GLUCOSE (test code = 2217) 95 MG/DL BUN (test code = 2208) 21 MG/DL CREATININE (test code = 2214) 0.87 MG/DL eGFR AMER. (test cod e = 61564) 87 ML/MIN/1.73 eGFR NON- AMER. (test code = 74543) 75 ML/MIN/1.73 CALC BUN/CREAT (test code = 2235) 24 RATIO SODIUM (test code = 2231) 139 MEQ/L POTASSIUM (test code = 2228) 4.4 MEQ/L CHLORIDE (test code = 2215) 109 MEQ/L CARBON DIOXIDE (test code = 2206) 21 MEQ/L CALCIUM (test code = 2209) 9.4 MG/DL PROTEIN, TOTAL (test code = 2229) 9.8 G/DL ALBUMIN (test code = 2201) 3.6 G/DL CALC GLOBULIN (test code = 2240) 6.2 G/DL CALC A/G RATIO (test code = 2234) 0.6 RATIO BILIRUBIN, TOTAL (test code = 2207) 0.5 MG/DL ALKALINE PHOSPHATASE (test code = 220) 83 U/L AST (test code = 2218) 27 U/L ALT (test code = 2219) 8 U/L Delfino OrtaURIC [id number] 00:00:00* Test Item Value Reference Range Interpretation Comme [facility] URIC ACID (test code = 2233) 8.5 MG/DL Delfino OrtaVITAMIN [id number] 00:00:00* Test Item Value Reference Range Interpretation Comme [facility] VITAMIN B-12 (test code = 2840) 335 PG/ML Delfino OrtaCBC W/AUTO [id number] 00:00:00* Test Item Value Reference Range Interpretation Comme [facility] WBC (test code = 1001) 2.9 K/UL [...] COUNT (test code = 1015) 212 K/UL Delfion F AustinLIPID [id number] 00:00:00* Test Item Value Reference Range Interpretation Comme nts CHOLESTEROL (test code = 2210) 141 MG/DL TRIGLYCERIDES (test code = 2232) 71 MG/DL HDL CHOLESTEROL (test code = 2220) 69 MG/DL CALC LDL CHOL (test code = 2237) 58 MG/DL RISK RATIO LDL/HDL (test cod e = 2238) 0.84 RATIO Delfino OrtaCOMPREHENSIVE METABOLIC [id number] 00:00:00* Test Item Value Reference Range Interpretation Comme nts GLUCOSE (test code = 2217) 95 MG/DL BUN (test code = 2208) 21 MG/DL CREATININE (test code = 2214) 0.87 MG/DL eGFR AMER. (test cod e = 57303) 87 ML/MIN/1.73 eGFR NON- AMER. (test code = 10926) 75 ML/MIN/1.73 CALC BUN/CREAT (test code = 2235) 24 RATIO SODIUM (test code = 2231) 139 MEQ/L POTASSIUM (test code = 2228) 4.4 MEQ/L CHLORIDE (test code = 2215) 109 MEQ/L CARBON DIOXIDE (test code = 2206) 21 MEQ/L CALCIUM (test code = 2209) 9.4 MG/DL PROTEIN, TOTAL (test code = 2229) 9.8 G/DL ALBUMIN (test code = 2201) 3.6 G/DL CALC GLOBULIN (test code = 2240) 6.2 G/DL CALC A/G RATIO (test code = 2234) 0.6 RATIO BILIRUBIN, TOTAL (test code = 2207) 0.5 MG/DL ALKALINE PHOSPHATASE (test code = 2204) 83 U/L AST (test code = 2218) 27 U/L ALT (test code = 2219) 8 U/L Delfino OrtaURIC [id number] 00:00:00* Test Item Value Reference Range Interpretation Comme nts URIC ACID (test code = 2233) 8.5 MG/DL Delfino OrtaVITAMIN [id number] 00:00:00* Test Item Value Reference Range Interpretation Comme [facility] VITAMIN B-12 (test code = 2840) 335 PG/ML Delfino OrtaCBC W/AUTO [id number] 00:00:00* Test Item Value Reference Range Interpretation Comme nts WBC (test code = 1001) 2.9 K/UL [...] COUNT (test code = 1015) 212 K/UL Delfino Schumacher [place] [id number] 00:00:00* Test Item Value Reference Range Interpretation Comme nts CHOLESTEROL (test code = 2210) 141 MG/DL TRIGLYCERIDES (test code = 2232) 71 MG/DL HDL CHOLESTEROL (test code = 2220) 69 MG/DL CALC LDL CHOL (test code = 2237) 58 MG/DL RISK RATIO LDL/HDL (test cod e = 2238) 0.84 RATIO Delfino OrtaCOMPREHENSIVE METABOLIC [id number] 00:00:00* Test Item Value Reference Range Interpretation Comme nts GLUCOSE (test code = 2217) 95 MG/DL BUN (test code = 2208) 21 MG/DL CREATININE (test code = 2214) 0.87 MG/DL eGFR AMER. (test cod e = 79434) 87 ML/MIN/1.73 eGFR NON- AMER. (test code = 36197) 75 ML/MIN/1.73 CALC BUN/CREAT (test code = 2235) 24 RATIO SODIUM (test code = 2231) 139 MEQ/L POTASSIUM (test code = 2228) 4.4 MEQ/L CHLORIDE (test code = 2215) 109 MEQ/L CARBON DIOXIDE (test code = 2206) 21 MEQ/L CALCIUM (test code = 2209) 9.4 MG/DL PROTEIN, TOTAL (test code = 2229) 9.8 G/DL ALBUMIN (test code = 2201) 3.6 G/DL CALC GLOBULIN (test code = 2240) 6.2 G/DL CALC A/G RATIO (test code = 2234) 0.6 RATIO BILIRUBIN, TOTAL (test code = 2207) 0.5 MG/DL ALKALINE PHOSPHATASE (test code = 2204) 83 U/L AST (test code = 2218) 27 U/L ALT (test code = 2219) 8 U/L Delfino OrtaURIC [id number] 00:00:00* Test Item Value Reference Range Interpretation Comme nts URIC ACID (test code = 2233) 8.5 MG/DL Delfino OrtaVITAMIN [id number] 00:00:00* Test Item Value Reference Range Interpretation Comme [facility] VITAMIN B-12 (test code = 2840) 335 PG/ML Delfino OrtaCBC W/AUTO [id number] 00:00:00* Test Item Value Reference Range Interpretation Comme nts WBC (test code = 1001) 2.9 K/UL [...] COUNT (test code = 1015) 212 K/UL Delfino OrtaLIPID [id number] 00:00:00* Test Item Value Reference Range Interpretation Comme nts CHOLESTEROL (test code = 2210) 141 MG/DL TRIGLYCERIDES (test code = 2232) 71 MG/DL HDL CHOLESTEROL (test code = 2220) 69 MG/DL CALC LDL CHOL (test code = 2237) 58 MG/DL RISK RATIO LDL/HDL (test cod e = 2238) 0.84 RATIO Delfino OrtaCOMPREHENSIVE METABOLIC [id number] 00:00:00* Test Item Value Reference Range Interpretation Comme nts GLUCOSE (test code = 2217) 95 MG/DL BUN (test code = 2208) 21 MG/DL CREATININE (test code = 2214) 0.87 MG/DL eGFR AMER. (test cod e = 32697) 87 ML/MIN/1.73 eGFR NON- AMER. (test code = 60697) 75 ML/MIN/1.73 CALC BUN/CREAT (test code = 2235) 24 RATIO SODIUM (test code = 2231) 139 MEQ/L POTASSIUM (test code = 2228) 4.4 MEQ/L CHLORIDE (test code = 2215) 109 MEQ/L CARBON DIOXIDE (test code = 2206) 21 MEQ/L CALCIUM (test code = 2209) 9.4 MG/DL PROTEIN, TOTAL (test code = 2229) 9.8 G/DL ALBUMIN (test code = 2201) 3.6 G/DL CALC GLOBULIN (test code = 2240) 6.2 G/DL CALC A/G RATIO (test code = 2234) 0.6 RATIO BILIRUBIN, TOTAL (test code = 2207) 0.5 MG/DL ALKALINE PHOSPHATASE (test code = 2204) 83 U/L AST (test code = 2218) 27 U/L ALT (test code = 2219) 8 U/L Delfino Schumacher [place] [id number] 00:00:00* Test Item Value Reference Range Interpretation Comme nts URIC ACID (test code = 2233) 8.5 MG/DL Delfino Schumacher [place]VITAMIN [id number] 00:00:00* Test Item Value Reference Range Interpretation Comme nts VITAMIN B-12 (test code = 2840) 335 PG/ML Delfino Schumacher AustinCD4/CD8 LYMPHOCYTE [id number] 00:00:00* Test Item Value Reference Range Interpretation Comme nts ABSOLUTE LYMPHOCYTES (test c ode = 42706) 807 PERUL PERCENT CD4 (test code = 56069) 13.1 % ABSOLUTE CD4 (test code = 32576) 105 PERUL PERCENT CD8 (test code = 54538) 61.6 % ABSOLUTE CD8 (test code = 86186) 497 PERUL CD4/CD8 RATIO (test code = 22704) 0.21 Delfino Schumacher [place]CD4/CD8 LYMPHOCYTE [id number] 00:00:00* Test Item Value Reference Range Interpretation Comme nts ABSOLUTE LYMPHOCYTES (test c ode = 29977) 807 PERUL PERCENT CD4 (test code = 43747) 13.1 % ABSOLUTE CD4 (test code = 24049) 105 PERUL PERCENT CD8 (test code = 63126) 61.6 % ABSOLUTE CD8 (test code = 74674) 497 PERUL CD4/CD8 RATIO (test code = 31092) 0.21 Delfino Schumacher [place]CD4/CD8 LYMPHOCYTE [id number] 00:00:00* Test Item Value Reference Range Interpretation Comme nts ABSOLUTE LYMPHOCYTES (test c ode = 56317) 807 PERUL PERCENT CD4 (test code = 41672) 13.1 % ABSOLUTE CD4 (test code = 41829) 105 PERUL PERCENT CD8 (test code = 02715) 61.6 % ABSOLUTE CD8 (test code = 70127) 497 PERUL CD4/CD8 RATIO (test code = 20499) 0.21 Delfino Schumacher [place]/CD8 LYMPHOCYTE [id number] 00:00:00* Test Item Value Reference Range Interpretation Comme nts ABSOLUTE LYMPHOCYTES (test c ode = 94954) 807 PERUL PERCENT CD4 (test code = 63448) 13.1 % ABSOLUTE CD4 (test code = 94195) 105 PERUL PERCENT CD8 (test code = 88512) 61.6 % ABSOLUTE CD8 (test code = 14857) 497 PERUL CD4/CD8 RATIO (test code = 71629) 0.21 CD4/CD8 LYMPHOCYTE [id number] 00:00:00* Test Item Value Reference Range Interpretation Comme nts ABSOLUTE LYMPHOCYTES (test c ode = 51661) 807 PERUL PERCENT CD4 (test code = 24552) 13.1 % ABSOLUTE CD4 (test code = 71166) 105 PERUL PERCENT CD8 (test code = 42268) 61.6 % ABSOLUTE CD8 (test code = 30546) 497 PERUL CD4/CD8 RATIO (test code = 01291) 0.21 CD4/CD8 LYMPHOCYTE [id number] 00:00:00* Test Item Value Reference Range Interpretation Comme nts ABSOLUTE LYMPHOCYTES (test c ode = 96275) 807 PERUL PERCENT CD4 (test code = 92343) 13.1 % ABSOLUTE CD4 (test code = 02149) 105 PERUL PERCENT CD8 (test code = 12566) 61.6 % ABSOLUTE CD8 (test code = 42537) 497 PERUL CD4/CD8 RATIO (test code = 97372) 0.21 CD4/CD8 LYMPHOCYTE [id number] 00:00:00* Test Item Value Reference Range Interpretation Comme nts ABSOLUTE LYMPHOCYTES (test c ode = 98804) 807 PERUL PERCENT CD4 (test code = 08939) 13.1 % ABSOLUTE CD4 (test code = 23032) 105 PERUL PERCENT CD8 (test code = 09956) 61.6 % ABSOLUTE CD8 (test code = 46519) 497 PERUL CD4/CD8 RATIO (test code = 41569) 0.21 CD4/CD8 LYMPHOCYTE [id number] 00:00:00* Test Item Value Reference Range Interpretation Comme nts ABSOLUTE LYMPHOCYTES (test c ode = 38665) 807 PERUL PERCENT CD4 (test code = 84075) 13.1 % ABSOLUTE CD4 (test code = 65807) 105 PERUL PERCENT CD8 (test code = 56768) 61.6 % ABSOLUTE CD8 (test code = 08114) 497 PERUL CD4/CD8 RATIO (test code = 03426) 0.21 CD4/CD8 LYMPHOCYTE [id number] 00:00:00* Test Item Value Reference Range Interpretation Comme nts ABSOLUTE LYMPHOCYTES (test c ode = 60447) 807 PERUL PERCENT CD4 (test code = 96141) 13.1 % ABSOLUTE CD4 (test code = 13150) 105 PERUL PERCENT CD8 (test code = 23143) 61.6 % ABSOLUTE CD8 (test code = 75669) 497 PERUL CD4/CD8 RATIO (test code = 18557) 0.21 CD4/CD8 LYMPHOCYTE [id number] 00:00:00* Test Item Value Reference Range Interpretation Comme nts ABSOLUTE LYMPHOCYTES (test c ode = 03041) 807 PERUL PERCENT CD4 (test code = 82881) 13.1 % ABSOLUTE CD4 (test code = 56485) 105 PERUL PERCENT CD8 (test code = 50248) 61.6 % ABSOLUTE CD8 (test code = 54077) 497 PERUL CD4/CD8 RATIO (test code = 26846) 0.21 CD4/CD8 LYMPHOCYTE [id number] 00:00:00* Test Item Value Reference Range Interpretation Comme nts ABSOLUTE LYMPHOCYTES (test c ode = 29320) 807 PERUL PERCENT CD4 (test code = 16440) 13.1 % ABSOLUTE CD4 (test code = 47625) 105 PERUL PERCENT CD8 (test code = 82438) 61.6 % ABSOLUTE CD8 (test code = 43053) 497 PERUL CD4/CD8 RATIO (test code = 54196) 0.21 Delfino Schumacher [place]/CD8 LYMPHOCYTE [id number] 00:00:00* Test Item Value Reference Range Interpretation Comme nts ABSOLUTE LYMPHOCYTES (test c ode = 49515) 807 PERUL PERCENT CD4 (test code = 32878) 13.1 % ABSOLUTE CD4 (test code = 56260) 105 PERUL PERCENT CD8 (test code = 42878) 61.6 % ABSOLUTE CD8 (test code = 14508) 497 PERUL CD4/CD8 RATIO (test code = 34643) 0.21 Delfino Schumacher [place]CD4/CD8 LYMPHOCYTE [id number] 00:00:00* Test Item Value Reference Range Interpretation Comme nts ABSOLUTE LYMPHOCYTES (test c ode = 40840) 807 PERUL PERCENT CD4 (test code = 22001) 13.1 % ABSOLUTE CD4 (test code = 43620) 105 PERUL PERCENT CD8 (test code = 63997) 61.6 % ABSOLUTE CD8 (test code = 14890) 497 PERUL CD4/CD8 RATIO (test code = 09166) 0.21 Delfino Schumacher [place]CD4/CD8 LYMPHOCYTE [id number] 00:00:00* Test Item Value Reference Range Interpretation Comme nts ABSOLUTE LYMPHOCYTES (test c ode = 80298) 807 PERUL PERCENT CD4 (test code = 83873) 13.1 % ABSOLUTE CD4 (test code = 08935) 105 PERUL PERCENT CD8 (test code = 05689) 61.6 % ABSOLUTE CD8 (test code = 48000) 497 PERUL CD4/CD8 RATIO (test code = 13110) 0.21 Delfino Schumacher [place]CD4/CD8 LYMPHOCYTE [id number] 00:00:00* Test Item Value Reference Range Interpretation Comme nts ABSOLUTE LYMPHOCYTES (test c ode = 46532) 807 PERUL PERCENT CD4 (test code = 42765) 13.1 % ABSOLUTE CD4 (test code = 59033) 105 PERUL PERCENT CD8 (test code = 00710) 61.6 % ABSOLUTE CD8 (test code = 06222) 497 PERUL CD4/CD8 RATIO (test code = 68806) 0.21 Delfino Schumacher [place]VIT[place] [id number] 00:00:00* Test Item Value Reference Range Interpretation Comme nts VITAMIN B-12 (test code = 2840) 358 PG/ML Delfino Schumacher [place]VITAMIN [id number] 00:00:00* Test Item Value Reference Range Interpretation Comme nts VITAMIN B-12 (test code = 2840) 358 PG/ML Delfino Schumacher [place]VITAMIN [id number] 00:00:00* Test Item Value Reference Range Interpretation Comme nts VITAMIN B-12 (test code = 2840) 358 PG/ML VITAMIN [id number] 00:00:00* Test Item Value Reference Range Interpretation Comme nts VITAMIN B-12 (test code = 2840) 358 PG/ML VITAMIN [id number] 00:00:00* Test Item Value Reference Range Interpretation Comme nts VITAMIN B-12 (test code = 2840) 358 PG/ML VITAMIN [id number] 00:00:00* Test Item Value Reference Range Interpretation Comme nts VITAMIN B-12 (test code = 2840) 358 PG/ML VITAMIN [id number] 00:00:00* Test Item Value Reference Range Interpretation Comme nts VITAMIN B-12 (test code = 2840) 358 PG/ML VITAMIN [id number] 00:00:00* Test Item Value Reference Range Interpretation Comme nts VITAMIN B-12 (test code = 2840) 358 PG/ML VITAMIN [id number] 00:00:00* Test Item Value Reference Range Interpretation Comme nts VITAMIN B-12 (test code = 2840) 358 PG/ML VITAMIN [id number] 00:00:00* Test Item Value Reference Range Interpretation Comme nts VITAMIN B-12 (test code = 2840) 358 PG/ML VITAMIN [id number] 00:00:00* Test Item Value Reference Range Interpretation Comme nts VITAMIN B-12 (test code = 2840) 358 PG/ML VITAMIN [id number] 00:00:00* Test Item Value Reference Range Interpretation Comme nts VITAMIN B-12 (test code = 2840) 358 PG/ML VITAMIN [id number] 00:00:00* Test Item Value Reference Range Interpretation Comme nts VITAMIN B-12 (test code = 2840) 358 PG/ML VITAMIN [id number] 00:00:00* Test Item Value Reference Range Interpretation Comme nts VITAMIN B-12 (test code = 2840) 358 PG/ML Delfino Schumacher [place]AM[place] [id number] 00:00:00* Test Item Value Reference Range Interpretation Comme nts VITAMIN B-12 (test code = 2840) 358 PG/ML Delfino Schumacher [place]VITAM[place] [id number] 00:00:00* Test Item Value Reference Range Interpretation Comme nts VITAMIN B-12 (test code = 2840) 358 PG/ML Delfino Schumacher [place]VITAM[place] [id number] 00:00:00* Test Item Value Reference Range Interpretation Comme nts VITAMIN B-12 (test code = 2840) 358 PG/ML Delfino Schumacher [place]VITAM[place] [id number] 00:00:00* Test Item Value Reference Range Interpretation Comme nts VITAMIN B-12 (test code = 2840) 358 PG/ML Delfino Schumacher [place]ITAM[place] [id number] 00:00:00* Test Item Value Reference Range Interpretation Comme nts VITAMIN B-12 (test code = 2840) 358 PG/ML Delfino Schumacher [place]VITAMIN B 12 AND FOLIC ACID [ADDED]2018-09-09 00:00:00* Test Item Value Reference Range Interpretation Comme nts VITAMIN B-12 (test code = 2840) 166 PG/ML FOLIC ACID (test code = 2695) 9.9 UG/L Delfino Schumacher AustinIRON BINDING CAPACITY AND IRON AND % SATURATION [ADDED] 2018-09-09 00:00:00* Test Item Value Reference Range Interpretation Comme nts IRON, SERUM (test code = 2222) 32 UG/DL UNSATURATED IBC (test code = 35258) 326 UG/DL CALC TOTAL IBC (test code = 2077) 358 UG/DL CALC % IRON SAT (test code = 2079) 9 % Delfino OrtaFERRITIN [ADDED]2018-09-09 00:00:00* Test Item Value Reference Range Interpretation Comme nts FERRITIN (test code = 2075) 19 NG/ML Delfino Schumacher AustinTRANSFERRIN [ADDED]2018-09-09 00:00:00* Test Item Value Reference Range Interpretation Comme nts TRANSFERRIN (test code = 4936) 298 MG/DL Delfino Schumacher AustinCBC W/AUTO DIFF WITH PLATELETS [ADDED]2018-09-09 00:00:00* Test Item Value Reference Range Interpretation Comme nts WBC (test code = 1001) 3.3 K/UL [...] K/UL COMMENTS (test code = 1016) (NOTE) Delfino Schumacher AustinCBC W/AUTO DIFF WITH PLATELETS [ADDED]2018-09-09 00:00:00* Test Item Value Reference Range Interpretation Comme nts WBC (test code = 1001) 3.3 K/UL [...] (NOTE) CBC W/AUTO DIFF WITH PLATELETS [ADDED]2018-09-09 00:00:00* Test Item Value Reference Range Interpretation Comme nts WBC (test code = 1001) 3.3 K/UL [...] (NOTE) CBC W/AUTO DIFF WITH PLATELETS [ADDED]2018-09-09 00:00:00* Test Item Value Reference Range Interpretation Comme nts WBC (test code = 1001) 3.3 K/UL [...] VITAMIN B 12 AND FOLIC ACID [ADDED]2018-09-09 00:00:00* Test Item Value Reference Range Interpretation Comme nts VITAMIN B-12 (test code = 2840) 166 PG/ML FOLIC ACID (test code = 2695) 9.9 UG/L VITAMIN B 12 AND FOLIC ACID [ADDED]2018-09-09 00:00:00* Test Item Value Reference Range Interpretation Comme nts VITAMIN B-12 (test code = 2840) 166 PG/ML FOLIC ACID (test code = 2695) 9.9 UG/L IRON BINDING CAPACITY AND IRON AND % SATURATION [ADDED]2018-09-09 00:00:00* Test Item Value Reference Range Interpretation Comme nts IRON, SERUM (test code = 2222) 32 UG/DL UNSATURATED IBC (test code = 10813) 326 UG/DL CALC TOTAL IBC (test code = 2077) 358 UG/DL CALC % IRON SAT (test code = 2079) 9 % IRON BINDING CAPACITY AND IRON AND % SATURATION [ADDED]2018-09-09 00:00:00* Test Item Value Reference Range Interpretation Comme nts IRON, SERUM (test code = 2222) 32 UG/DL UNSATURATED IBC (test code = 58933) 326 UG/DL CALC TOTAL IBC (test code = 2077) 358 UG/DL CALC % IRON SAT (test code = 2079) 9 % FERRITIN [ADDED]2018-09-09 00:00:00* Test Item Value Reference Range Interpretation Comme nts FERRITIN (test code = 2075) 19 NG/ML FERRITIN [ADDED]2018-09-09 00:00:00* Test Item Value Reference Range Interpretation Comme nts FERRITIN (test code = 2075) 19 NG/ML TRANSFERRIN [ADDED]2018-09-09 00:00:00* Test Item Value Reference Range Interpretation Comme nts TRANSFERRIN (test code = 4936) 298 MG/DL TRANSFERRIN [ADDED]2018-09-09 00:00:00* Test Item Value Reference Range Interpretation Comme nts TRANSFERRIN (test code = 4936) 298 MG/DL CBC W/AUTO DIFF WITH PLATELETS [ADDED]2018-09-09 00:00:00* Test Item Value Reference Range Interpretation Comme nts WBC (test code = 1001) 3.3 K/UL [...] (NOTE) CBC W/AUTO DIFF WITH PLATELETS [ADDED]2018-09-09 00:00:00* Test Item Value Reference Range Interpretation Comme nts WBC (test code = 1001) 3.3 K/UL [...] (NOTE) CBC W/AUTO DIFF WITH PLATELETS [ADDED]2018-09-09 00:00:00* Test Item Value Reference Range Interpretation Comme nts WBC (test code = 1001) 3.3 K/UL [...] VITAMIN B 12 AND FOLIC ACID [ADDED]2018-09-09 00:00:00* Test Item Value Reference Range Interpretation Comme nts VITAMIN B-12 (test code = 2840) 166 PG/ML FOLIC ACID (test code = 2695) 9.9 UG/L VITAMIN B 12 AND FOLIC ACID [ADDED]2018-09-09 00:00:00* Test Item Value Reference Range Interpretation Comme nts VITAMIN B-12 (test code = 2840) 166 PG/ML FOLIC ACID (test code = 2695) 9.9 UG/L IRON BINDING CAPACITY AND IRON AND % SATURATION [ADDED]2018-09-09 00:00:00* Test Item Value Reference Range Interpretation Comme nts IRON, SERUM (test code = 2222) 32 UG/DL UNSATURATED IBC (test code = 57091) 326 UG/DL CALC TOTAL IBC (test code = 2077) 358 UG/DL CALC % IRON SAT (test code = 2079) 9 % IRON BINDING CAPACITY AND IRON AND % SATURATION [ADDED]2018-09-09 00:00:00* Test Item Value Reference Range Interpretation Comme nts IRON, SERUM (test code = 2222) 32 UG/DL UNSATURATED IBC (test code = 93593) 326 UG/DL CALC TOTAL IBC (test code = 2077) 358 UG/DL CALC % IRON SAT (test code = 2079) 9 % FERRITIN [ADDED]2018-09-09 00:00:00* Test Item Value Reference Range Interpretation Comme nts FERRITIN (test code = 2075) 19 NG/ML FERRITIN [ADDED]2018-09-09 00:00:00* Test Item Value Reference Range Interpretation Comme nts FERRITIN (test code = 2075) 19 NG/ML TRANSFERRIN [ADDED]2018-09-09 00:00:00* Test Item Value Reference Range Interpretation Comme nts TRANSFERRIN (test code = 4936) 298 MG/DL TRANSFERRIN [ADDED]2018-09-09 00:00:00* Test Item Value Reference Range Interpretation Comme nts TRANSFERRIN (test code = 4936) 298 MG/DL CBC W/AUTO DIFF WITH PLATELETS [ADDED]2018-09-09 00:00:00* Test Item Value Reference Range Interpretation Comme nts WBC (test code = 1001) 3.3 K/UL [...] (NOTE) CBC W/AUTO DIFF WITH PLATELETS [ADDED]2018-09-09 00:00:00* Test Item Value Reference Range Interpretation Comme nts WBC (test code = 1001) 3.3 K/UL [...] VITAMIN B 12 AND FOLIC ACID [ADDED]2018-09-09 00:00:00* Test Item Value Reference Range Interpretation Comme nts VITAMIN B-12 (test code = 2840) 166 PG/ML FOLIC ACID (test code = 2695) 9.9 UG/L IRON BINDING CAPACITY AND IRON AND % SATURATION [ADDED]2018-09-09 00:00:00* Test Item Value Reference Range Interpretation Comme nts IRON, SERUM (test code = 2222) 32 UG/DL UNSATURATED IBC (test code = 96722) 326 UG/DL CALC TOTAL IBC (test code = 2077) 358 UG/DL CALC % IRON SAT (test code = 2079) 9 % FERRITIN [ADDED]2018-09-09 00:00:00* Test Item Value Reference Range Interpretation Comme nts FERRITIN (test code = 2075) 19 NG/ML TRANSFERRIN [ADDED]2018-09-09 00:00:00* Test Item Value Reference Range Interpretation Comme nts TRANSFERRIN (test code = 4936) 298 MG/DL CBC W/AUTO DIFF WITH PLATELETS [ADDED]2018-09-09 00:00:00* Test Item Value Reference Range Interpretation Comme nts WBC (test code = 1001) 3.3 K/UL [...] (NOTE) CBC W/AUTO DIFF WITH PLATELETS [ADDED]2018-09-09 00:00:00* Test Item Value Reference Range Interpretation Comme nts WBC (test code = 1001) 3.3 K/UL [...] (NOTE) CBC W/AUTO DIFF WITH PLATELETS [ADDED]2018-09-09 00:00:00* Test Item Value Reference Range Interpretation Comme nts WBC (test code = 1001) 3.3 K/UL [...] VITAMIN B 12 AND FOLIC ACID [ADDED]2018-09-09 00:00:00* Test Item Value Reference Range Interpretation Comme nts VITAMIN B-12 (test code = 2840) 166 PG/ML FOLIC ACID (test code = 2695) 9.9 UG/L VITAMIN B 12 AND FOLIC ACID [ADDED]2018-09-09 00:00:00* Test Item Value Reference Range Interpretation Comme nts VITAMIN B-12 (test code = 2840) 166 PG/ML FOLIC ACID (test code = 2695) 9.9 UG/L IRON BINDING CAPACITY AND IRON AND % SATURATION [ADDED]2018-09-09 00:00:00* Test Item Value Reference Range Interpretation Comme nts IRON, SERUM (test code = 2222) 32 UG/DL UNSATURATED IBC (test code = 45673) 326 UG/DL CALC TOTAL IBC (test code = 2077) 358 UG/DL CALC % IRON SAT (test code = 9) 9 % IRON BINDING CAPACITY AND IRON AND % SATURATION [ADDED]2018-09-09 00:00:00* Test Item Value Reference Range Interpretation Comme nts IRON, SERUM (test code = 2222) 32 UG/DL UNSATURATED IBC (test code = 46729) 326 UG/DL CALC TOTAL IBC (test code = 7) 358 UG/DL CALC % IRON SAT (test code = 9) 9 % FERRITIN [ADDED]2018-09-09 00:00:00* Test Item Value Reference Range Interpretation Comme nts FERRITIN (test code = 2074) 19 NG/ML FERRITIN [ADDED]2018-09-09 00:00:00* Test Item Value Reference Range Interpretation Comme nts FERRITIN (test code = 2074) 19 NG/ML TRANSFERRIN [ADDED]2018-09-09 00:00:00* Test Item Value Reference Range Interpretation Comme nts TRANSFERRIN (test code = 4936) 298 MG/DL TRANSFERRIN [ADDED]2018-09-09 00:00:00* Test Item Value Reference Range Interpretation Comme nts TRANSFERRIN (test code = 4936) 298 MG/DL VITAMIN B 12 AND FOLIC ACID [ADDED]2018-09-09 00:00:00* Test Item Value Reference Range Interpretation Comme nts VITAMIN B-12 (test code = 2840) 166 PG/ML FOLIC ACID (test code = 2695) 9.9 UG/L Delfino F AustinIRON BINDING CAPACITY AND IRON AND % SATURATION [ADDED] 2018-09-09 00:00:00* Test Item Value Reference Range Interpretation Comme nts IRON, SERUM (test code = 2) 32 UG/DL UNSATURATED IBC (test code = 38501) 326 UG/DL CALC TOTAL IBC (test code = 7) 358 UG/DL CALC % IRON SAT (test code = 9) 9 % Delfino F AustinFERRITIN [ADDED]2018-09-09 00:00:00* Test Item Value Reference Range Interpretation Comme nts FERRITIN (test code = 5) 19 NG/ML Delfino F AustinTRANSFERRIN [ADDED]2018-09-09 00:00:00* Test Item Value Reference Range Interpretation Comme nts TRANSFERRIN (test code = 4936) 298 MG/DL Delfino F AustinCBC W/AUTO DIFF WITH PLATELETS [ADDED]2018-09-09 00:00:00* Test Item Value Reference Range Interpretation Comme nts WBC (test code = 1001) 3.3 K/UL [...] K/UL COMMENTS (test code = 1016) (NOTE) Delfino OrtaCBC W/AUTO DIFF WITH PLATELETS [ADDED]2018-09-09 00:00:00* Test Item Value Reference Range Interpretation Comme nts WBC (test code = 1001) 3.3 K/UL [...] K/UL COMMENTS (test code = 1016) (NOTE) Delfino OrtaVITAMIN B 12 AND FOLIC ACID [ADDED]2018-09-09 00:00:00* Test Item Value Reference Range Interpretation Comme nts VITAMIN B-12 (test code = 2840) 166 PG/ML FOLIC ACID (test code = 2695) 9.9 UG/L Delfino Peña BINDING CAPACITY AND IRON AND % SATURATION [ADDED] 2018-09-09 00:00:00* Test Item Value Reference Range Interpretation Comme nts IRON, SERUM (test code = 2222) 32 UG/DL UNSATURATED IBC (test code = 10834) 326 UG/DL CALC TOTAL IBC (test code = 7) 358 UG/DL CALC % IRON SAT (test code = 9) 9 % Delfino F AustinFERRITIN [ADDED]2018-09-09 00:00:00* Test Item Value Reference Range Interpretation Comme nts FERRITIN (test code = 5) 19 NG/ML Delfino F AustinTRANSFERRIN [ADDED]2018-09-09 00:00:00* Test Item Value Reference Range Interpretation Comme nts TRANSFERRIN (test code = 4936) 298 MG/DL Delfino F AustinVITAMIN B 12 AND FOLIC ACID [ADDED]2018-09-09 00:00:00* Test Item Value Reference Range Interpretation Comme nts VITAMIN B-12 (test code = 2840) 166 PG/ML FOLIC ACID (test code = 2695) 9.9 UG/L Delfino F AustinIRON BINDING CAPACITY AND IRON AND % SATURATION [ADDED] 2018-09-09 00:00:00* Test Item Value Reference Range Interpretation Comme nts IRON, SERUM (test code = 2222) 32 UG/DL UNSATURATED IBC (test code = 56960) 326 UG/DL CALC TOTAL IBC (test code = 7) 358 UG/DL CALC % IRON SAT (test code = 9) 9 % Delfino F AustinFERRITIN [ADDED]2018-09-09 00:00:00* Test Item Value Reference Range Interpretation Comme nts FERRITIN (test code = 5) 19 NG/ML Delfino F AustinTRANSFERRIN [ADDED]2018-09-09 00:00:00* Test Item Value Reference Range Interpretation Comme nts TRANSFERRIN (test code = 4936) 298 MG/DL Delfino F AustinCBC W/AUTO DIFF WITH PLATELETS [ADDED]2018-09-09 00:00:00* Test Item Value Reference Range Interpretation Comme nts WBC (test code = 1001) 3.3 K/UL [...] K/UL COMMENTS (test code = 1016) (NOTE) Delfino OrtaVITAMIN B 12 AND FOLIC ACID [ADDED]2018-09-09 00:00:00* Test Item Value Reference Range Interpretation Comme nts VITAMIN B-12 (test code = 2840) 166 PG/ML FOLIC ACID (test code = 2695) 9.9 UG/L Delfino OrtaIRON BINDING CAPACITY AND IRON AND % SATURATION [ADDED] 2018-09-09 00:00:00* Test Item Value Reference Range Interpretation Comme nts IRON, SERUM (test code = 2222) 32 UG/DL UNSATURATED IBC (test code = 60512) 326 UG/DL CALC TOTAL IBC (test code = 2077) 358 UG/DL CALC % IRON SAT (test code = 2079) 9 % Delfino OrtaFERRITIN [ADDED]2018-09-09 00:00:00* Test Item Value Reference Range Interpretation Comme nts FERRITIN (test code = 2075) 19 NG/ML Delfino OrtaTRANSFERRIN [ADDED]2018-09-09 00:00:00* Test Item Value Reference Range Interpretation Comme nts TRANSFERRIN (test code = 4936) 298 MG/DL Delfino OrtaCBC W/AUTO DIFF WITH PLATELETS [ADDED]2018-09-09 00:00:00* Test Item Value Reference Range Interpretation Comme nts WBC (test code = 1001) 3.3 K/UL [...] K/UL COMMENTS (test code = 1016) (NOTE) Delfino Schumacher YouVITAMIN B 12 AND FOLIC ACID [ADDED]2018-09-09 00:00:00* Test Item Value Reference Range Interpretation Comme nts VITAMIN B-12 (test code = 2840) 166 PG/ML FOLIC ACID (test code = 2695) 9.9 UG/L Delfino OrtaIRON BINDING CAPACITY AND IRON AND % SATURATION [ADDED] 2018-09-09 00:00:00* Test Item Value Reference Range Interpretation Comme nts IRON, SERUM (test code = 2222) 32 UG/DL UNSATURATED IBC (test code = 88049) 326 UG/DL CALC TOTAL IBC (test code = 2077) 358 UG/DL CALC % IRON SAT (test code = 2079) 9 % Delfino Schumacher YouFERRITIN [ADDED]2018-09-09 00:00:00* Test Item Value Reference Range Interpretation Comme nts FERRITIN (test code = 2075) 19 NG/ML Delfino OrtaTRANSFERRIN [ADDED]2018-09-09 00:00:00* Test Item Value Reference Range Interpretation Comme nts TRANSFERRIN (test code = 4936) 298 MG/DL Delfino OrtaCBC W/AUTO DIFF WITH PLATELETS [ADDED]2018-09-09 00:00:00* Test Item Value Reference Range Interpretation Comme nts WBC (test code = 1001) 3.3 K/UL [...] K/UL COMMENTS (test code = 1016) (NOTE) Delfino OrtaVITAMIN B 12 AND FOLIC ACID [ADDED]2018-09-09 00:00:00* Test Item Value Reference Range Interpretation Comme nts VITAMIN B-12 (test code = 2840) 166 PG/ML FOLIC ACID (test code = 2695) 9.9 UG/L Delfino OrtaIRON BINDING CAPACITY AND IRON AND % SATURATION [ADDED] 2018-09-09 00:00:00* Test Item Value Reference Range Interpretation Comme nts IRON, SERUM (test code = 2222) 32 UG/DL UNSATURATED IBC (test code = 93884) 326 UG/DL CALC TOTAL IBC (test code = 2077) 358 UG/DL CALC % IRON SAT (test code = 2079) 9 % Delfino OrtaFERRITIN [ADDED]2018-09-09 00:00:00* Test Item Value Reference Range Interpretation Comme nts FERRITIN (test code = 2075) 19 NG/ML Delfino OrtaTRANSFERRIN [ADDED]2018-09-09 00:00:00* Test Item Value Reference Range Interpretation Comme nts TRANSFERRIN (test code = 4936) 298 MG/DL Delfino OrtaCBC W/AUTO DIFF WITH PLATELETS [ADDED]2018-09-09 00:00:00* Test Item Value Reference Range Interpretation Comme nts WBC (test code = 1001) 3.3 K/UL [...] K/UL COMMENTS (test code = 1016) (NOTE) Delfino F AustinVITAMIN B 12 AND FOLIC ACID [ADDED]2018-09-09 00:00:00* Test Item Value Reference Range Interpretation Comme nts VITAMIN B-12 (test code = 2840) 166 PG/ML FOLIC ACID (test code = 2695) 9.9 UG/L Delfino OrtaIRON BINDING CAPACITY AND IRON AND % SATURATION [ADDED] 2018-09-09 00:00:00* Test Item Value Reference Range Interpretation Comme nts IRON, SERUM (test code = 2222) 32 UG/DL UNSATURATED IBC (test code = 47516) 326 UG/DL CALC TOTAL IBC (test code = 2077) 358 UG/DL CALC % IRON SAT (test code = 2079) 9 % Delfino OrtaFERRITIN [ADDED]2018-09-09 00:00:00* Test Item Value Reference Range Interpretation Comme nts FERRITIN (test code = 2075) 19 NG/ML Delfino OrtaTRANSFERRIN [ADDED]2018-09-09 00:00:00* Test Item Value Reference Range Interpretation Comme nts TRANSFERRIN (test code = 4936) 298 MG/DL Delfino OrtaCBC W/AUTO DIFF WITH PLATELETS [ADDED]2018-09-09 00:00:00* Test Item Value Reference Range Interpretation Comme nts WBC (test code = 1001) 3.3 K/UL [...] K/UL COMMENTS (test code = 1016) (NOTE) Delfino Schumacher AustinCBC W/AUTO [id number] 00:00:00* Test Item Value Reference Range Interpretation Comme nts WBC (test code = 1001) 3.5 K/UL [...] COUNT (test code = 1015) 230 K/UL Delfino OrtaCOMPREHENSIVE METABOLIC [id number] 00:00:00* Test Item Value Reference Range Interpretation Comme nts GLUCOSE (test code = 2217) 84 MG/DL BUN (test code = 2208) 12 MG/DL CREATININE (test code = 2214) 1.02 MG/DL eGFR AMER. (test cod e = 05377) 72 ML/MIN/1.73 eGFR NON- AMER. (test code = 02372) 62 ML/MIN/1.73 CALC BUN/CREAT (test code = 2235) 12 RATIO SODIUM (test code = 2231) 140 MEQ/L POTASSIUM (test code = 2228) 3.8 MEQ/L CHLORIDE (test code = 2215) 107 MEQ/L CARBON DIOXIDE (test code = 2206) 25 MEQ/L CALCIUM (test code = 2209) 9.4 MG/DL PROTEIN, TOTAL (test code = 2229) 9.7 G/DL ALBUMIN (test code = 2201) 3.7 G/DL CALC GLOBULIN (test code = 2240) 6.0 G/DL CALC A/G RATIO (test code = 2234) 0.6 RATIO BILIRUBIN, TOTAL (test code = 2207) 0.3 MG/DL ALKALINE PHOSPHATASE (test code = 2204) 90 U/L AST (test code = 2218) 23 U/L ALT (test code = 2219) 9 U/L Delfino OrtaURIC [id number] 00:00:00* Test Item Value Reference Range Interpretation Comme nts URIC ACID (test code = 2233) 7.8 MG/DL Delfino Schumacher AustinURIC [id number] 00:00:00* Test Item Value Reference Range Interpretation Comme nts URIC ACID (test code = 2233) 7.8 MG/DL URIC [id number] 00:00:00* Test Item Value Reference Range Interpretation Comme nts URIC ACID (test code = 2233) 7.8 MG/DL CBC W/AUTO [id number] 00:00:00* Test Item Value Reference Range Interpretation Comme nts WBC (test code = 1001) 3.5 K/UL [...] code = 1015) 230 K/UL CBC W/AUTO [id number] 00:00:00* Test Item Value Reference Range Interpretation Comme nts WBC (test code = 1001) 3.5 K/UL [...] code = 1015) 230 K/UL CBC W/AUTO [id number] 00:00:00* Test Item Value Reference Range Interpretation Comme nts WBC (test code = 1001) 3.5 K/UL [...] code = 1015) 230 K/UL COMPREHENSIVE METABOLIC [id number] 00:00:00* Test Item Value Reference Range Interpretation Comme nts GLUCOSE (test code = 2217) 84 MG/DL BUN (test code = 2208) 12 MG/DL CREATININE (test code = 2214) 1.02 MG/DL eGFR AMER. (test cod e = 98812) 72 ML/MIN/1.73 eGFR NON- AMER. (test code = 88044) 62 ML/MIN/1.73 CALC BUN/CREAT (test code = 2235) 12 RATIO SODIUM (test code = 2231) 140 MEQ/L POTASSIUM (test code = 2228) 3.8 MEQ/L CHLORIDE (test code = 2215) 107 MEQ/L CARBON DIOXIDE (test code = 2206) 25 MEQ/L CALCIUM (test code = 2209) 9.4 MG/DL PROTEIN, TOTAL (test code = 2229) 9.7 G/DL ALBUMIN (test code = 2201) 3.7 G/DL CALC GLOBULIN (test code = 2240) 6.0 G/DL CALC A/G RATIO (test code = 2234) 0.6 RATIO BILIRUBIN, TOTAL (test code = 2207) 0.3 MG/DL ALKALINE PHOSPHATASE (test code = 2204) 90 U/L AST (test code = 2218) 23 U/L ALT (test code = 2219) 9 U/L COMPREHENSIVE METABOLIC [id number] 00:00:00* Test Item Value Reference Range Interpretation Comme nts GLUCOSE (test code = 2217) 84 MG/DL BUN (test code = 2208) 12 MG/DL CREATININE (test code = 2214) 1.02 MG/DL eGFR AMER. (test cod e = 06718) 72 ML/MIN/1.73 eGFR NON- AMER. (test code = 54187) 62 ML/MIN/1.73 CALC BUN/CREAT (test code = 2235) 12 RATIO SODIUM (test code = 2231) 140 MEQ/L POTASSIUM (test code = 2228) 3.8 MEQ/L CHLORIDE (test code = 2215) 107 MEQ/L CARBON DIOXIDE (test code = 2206) 25 MEQ/L CALCIUM (test code = 2209) 9.4 MG/DL PROTEIN, TOTAL (test code = 2229) 9.7 G/DL ALBUMIN (test code = 2201) 3.7 G/DL CALC GLOBULIN (test code = 2240) 6.0 G/DL CALC A/G RATIO (test code = 2234) 0.6 RATIO BILIRUBIN, TOTAL (test code = 2207) 0.3 MG/DL ALKALINE PHOSPHATASE (test code = 2204) 90 U/L AST (test code = 2218) 23 U/L ALT (test code = 2219) 9 U/L URIC [id number] 00:00:00* Test Item Value Reference Range Interpretation Comme nts URIC ACID (test code = 2233) 7.8 MG/DL URIC [id number] 00:00:00* Test Item Value Reference Range Interpretation Comme nts URIC ACID (test code = 2233) 7.8 MG/DL CBC W/AUTO [id number] 00:00:00* Test Item Value Reference Range Interpretation Comme nts WBC (test code = 1001) 3.5 K/UL [...] code = 1015) 230 K/UL CBC W/AUTO [id number] 00:00:00* Test Item Value Reference Range Interpretation Comme nts WBC (test code = 1001) 3.5 K/UL [...] code = 1015) 230 K/UL CBC W/AUTO [id number] 00:00:00* Test Item Value Reference Range Interpretation Comme nts WBC (test code = 1001) 3.5 K/UL [...] code = 1015) 230 K/UL COMPREHENSIVE METABOLIC [id number] 00:00:00* Test Item Value Reference Range Interpretation Comme nts GLUCOSE (test code = 2217) 84 MG/DL BUN (test code = 2208) 12 MG/DL CREATININE (test code = 2214) 1.02 MG/DL eGFR AMER. (test cod e = 39153) 72 ML/MIN/1.73 eGFR NON- AMER. (test code = 43320) 62 ML/MIN/1.73 CALC BUN/CREAT (test code = 2235) 12 RATIO SODIUM (test code = 2231) 140 MEQ/L POTASSIUM (test code = 2228) 3.8 MEQ/L CHLORIDE (test code = 2215) 107 MEQ/L CARBON DIOXIDE (test code = 2206) 25 MEQ/L CALCIUM (test code = 2209) 9.4 MG/DL PROTEIN, TOTAL (test code = 2229) 9.7 G/DL ALBUMIN (test code = 2201) 3.7 G/DL CALC GLOBULIN (test code = 2240) 6.0 G/DL CALC A/G RATIO (test code = 2234) 0.6 RATIO BILIRUBIN, TOTAL (test code = 2207) 0.3 MG/DL ALKALINE PHOSPHATASE (test code = 2204) 90 U/L AST (test code = 2218) 23 U/L ALT (test code = 2219) 9 U/L COMPREHENSIVE METABOLIC [id number] 00:00:00* Test Item Value Reference Range Interpretation Comme nts GLUCOSE (test code = 2217) 84 MG/DL BUN (test code = 2208) 12 MG/DL CREATININE (test code = 2214) 1.02 MG/DL eGFR AMER. (test cod e = 87126) 72 ML/MIN/1.73 eGFR NON- AMER. (test code = 42718) 62 ML/MIN/1.73 CALC BUN/CREAT (test code = 2235) 12 RATIO SODIUM (test code = 2231) 140 MEQ/L POTASSIUM (test code = 2228) 3.8 MEQ/L CHLORIDE (test code = 2215) 107 MEQ/L CARBON DIOXIDE (test code = 2206) 25 MEQ/L CALCIUM (test code = 2209) 9.4 MG/DL PROTEIN, TOTAL (test code = 2229) 9.7 G/DL ALBUMIN (test code = 2201) 3.7 G/DL CALC GLOBULIN (test code = 2240) 6.0 G/DL CALC A/G RATIO (test code = 2234) 0.6 RATIO BILIRUBIN, TOTAL (test code = 2207) 0.3 MG/DL ALKALINE PHOSPHATASE (test code = 2204) 90 U/L AST (test code = 2218) 23 U/L ALT (test code = 2219) 9 U/L URIC [id number] 00:00:00* Test Item Value Reference Range Interpretation Comme nts URIC ACID (test code = 2233) 7.8 MG/DL CBC W/AUTO [id number] 00:00:00* Test Item Value Reference Range Interpretation Comme nts WBC (test code = 1001) 3.5 K/UL [...] code = 1015) 230 K/UL CBC W/AUTO [id number] 00:00:00* Test Item Value Reference Range Interpretation Comme nts WBC (test code = 1001) 3.5 K/UL [...] code = 1015) 230 K/UL COMPREHENSIVE METABOLIC [id number] 00:00:00* Test Item Value Reference Range Interpretation Comme nts GLUCOSE (test code = 2217) 84 MG/DL BUN (test code = 2208) 12 MG/DL CREATININE (test code = 2214) 1.02 MG/DL eGFR AMER. (test cod e = 09084) 72 ML/MIN/1.73 eGFR NON- AMER. (test code = 49621) 62 ML/MIN/1.73 CALC BUN/CREAT (test code = 2235) 12 RATIO SODIUM (test code = 2231) 140 MEQ/L POTASSIUM (test code = 2228) 3.8 MEQ/L CHLORIDE (test code = 2215) 107 MEQ/L CARBON DIOXIDE (test code = 2206) 25 MEQ/L CALCIUM (test code = 2209) 9.4 MG/DL PROTEIN, TOTAL (test code = 2229) 9.7 G/DL ALBUMIN (test code = 2201) 3.7 G/DL CALC GLOBULIN (test code = 2240) 6.0 G/DL CALC A/G RATIO (test code = 2234) 0.6 RATIO BILIRUBIN, TOTAL (test code = 2207) 0.3 MG/DL ALKALINE PHOSPHATASE (test code = 2204) 90 U/L AST (test code = 2218) 23 U/L ALT (test code = 2219) 9 U/L URIC [id number] 00:00:00* Test Item Value Reference Range Interpretation Comme nts URIC ACID (test code = 2233) 7.8 MG/DL URIC [id number] 00:00:00* Test Item Value Reference Range Interpretation Comme nts URIC ACID (test code = 2233) 7.8 MG/DL CBC W/AUTO [id number] 00:00:00* Test Item Value Reference Range Interpretation Comme nts WBC (test code = 1001) 3.5 K/UL [...] code = 1015) 230 K/UL CBC W/AUTO [id number] 00:00:00* Test Item Value Reference Range Interpretation Comme nts WBC (test code = 1001) 3.5 K/UL [...] code = 1015) 230 K/UL CBC W/AUTO [id number] 00:00:00* Test Item Value Reference Range Interpretation Comme nts WBC (test code = 1001) 3.5 K/UL [...] code = 1015) 230 K/UL COMPREHENSIVE METABOLIC [id number] 00:00:00* Test Item Value Reference Range Interpretation Comme nts GLUCOSE (test code = 2217) 84 MG/DL BUN (test code = 2208) 12 MG/DL CREATININE (test code = 2214) 1.02 MG/DL eGFR AMER. (test cod e = 30904) 72 ML/MIN/1.73 eGFR NON- AMER. (test code = 38664) 62 ML/MIN/1.73 CALC BUN/CREAT (test code = 2235) 12 RATIO SODIUM (test code = 2231) 140 MEQ/L POTASSIUM (test code = 2228) 3.8 MEQ/L CHLORIDE (test code = 2215) 107 MEQ/L CARBON DIOXIDE (test code = 2206) 25 MEQ/L CALCIUM (test code = 2209) 9.4 MG/DL PROTEIN, TOTAL (test code = 2229) 9.7 G/DL ALBUMIN (test code = 2201) 3.7 G/DL CALC GLOBULIN (test code = 2240) 6.0 G/DL CALC A/G RATIO (test code = 2234) 0.6 RATIO BILIRUBIN, TOTAL (test code = 2207) 0.3 MG/DL ALKALINE PHOSPHATASE (test code = 2204) 90 U/L AST (test code = 2218) 23 U/L ALT (test code = 2219) 9 U/L COMPREHENSIVE METABOLIC [id number] 00:00:00* Test Item Value Reference Range Interpretation Comme nts GLUCOSE (test code = 2217) 84 MG/DL BUN (test code = 2208) 12 MG/DL CREATININE (test code = 2214) 1.02 MG/DL eGFR AMER. (test cod e = 60516) 72 ML/MIN/1.73 eGFR NON- AMER. (test code = 35661) 62 ML/MIN/1.73 CALC BUN/CREAT (test code = 2235) 12 RATIO SODIUM (test code = 2231) 140 MEQ/L POTASSIUM (test code = 2228) 3.8 MEQ/L CHLORIDE (test code = 2215) 107 MEQ/L CARBON DIOXIDE (test code = 2206) 25 MEQ/L CALCIUM (test code = 2209) 9.4 MG/DL PROTEIN, TOTAL (test code = 2229) 9.7 G/DL ALBUMIN (test code = 2201) 3.7 G/DL CALC GLOBULIN (test code = 2240) 6.0 G/DL CALC A/G RATIO (test code = 2234) 0.6 RATIO BILIRUBIN, TOTAL (test code = 2207) 0.3 MG/DL ALKALINE PHOSPHATASE (test code = 2204) 90 U/L AST (test code = 2218) 23 U/L ALT (test code = 2219) 9 U/L CBC W/AUTO [id number] 00:00:00* Test Item Value Reference Range Interpretation Comme nts WBC (test code = 1001) 3.5 K/UL [...] COUNT (test code = 1015) 230 K/UL Delfino OrtaCOMPREHENSIVE METABOLIC [id number] 00:00:00* Test Item Value Reference Range Interpretation Comme nts GLUCOSE (test code = 2217) 84 MG/DL BUN (test code = 2208) 12 MG/DL CREATININE (test code = 2214) 1.02 MG/DL eGFR AMER. (test cod e = 20368) 72 ML/MIN/1.73 eGFR NON- AMER. (test code = 72266) 62 ML/MIN/1.73 CALC BUN/CREAT (test code = 2235) 12 RATIO SODIUM (test code = 2231) 140 MEQ/L POTASSIUM (test code = 2228) 3.8 MEQ/L CHLORIDE (test code = 2215) 107 MEQ/L CARBON DIOXIDE (test code = 2206) 25 MEQ/L CALCIUM (test code = 2209) 9.4 MG/DL PROTEIN, TOTAL (test code = 2229) 9.7 G/DL ALBUMIN (test code = 2201) 3.7 G/DL CALC GLOBULIN (test code = 2240) 6.0 G/DL CALC A/G RATIO (test code = 2234) 0.6 RATIO BILIRUBIN, TOTAL (test code = 2207) 0.3 MG/DL ALKALINE PHOSPHATASE (test code = 2204) 90 U/L AST (test code = 2218) 23 U/L ALT (test code = 2219) 9 U/L Delfino Schumacher AustinURIC [id number] 00:00:00* Test Item Value Reference Range Interpretation Comme nts URIC ACID (test code = 2233) 7.8 MG/DL Delfino OrtaCBC W/AUTO [id number] 00:00:00* Test Item Value Reference Range Interpretation Comme nts WBC (test code = 1001) 3.5 K/UL [...] COUNT (test code = 1015) 230 K/UL Delfino OrtaCOMPREHENSIVE METABOLIC [id number] 00:00:00* Test Item Value Reference Range Interpretation Comme nts GLUCOSE (test code = 2217) 84 MG/DL BUN (test code = 2208) 12 MG/DL CREATININE (test code = 2214) 1.02 MG/DL eGFR AMER. (test cod e = 62181) 72 ML/MIN/1.73 eGFR NON- AMER. (test code = 05532) 62 ML/MIN/1.73 CALC BUN/CREAT (test code = 2235) 12 RATIO SODIUM (test code = 2231) 140 MEQ/L POTASSIUM (test code = 2228) 3.8 MEQ/L CHLORIDE (test code = 2215) 107 MEQ/L CARBON DIOXIDE (test code = 2206) 25 MEQ/L CALCIUM (test code = 2209) 9.4 MG/DL PROTEIN, TOTAL (test code = 2229) 9.7 G/DL ALBUMIN (test code = 2201) 3.7 G/DL CALC GLOBULIN (test code = 2240) 6.0 G/DL CALC A/G RATIO (test code = 2234) 0.6 RATIO BILIRUBIN, TOTAL (test code = 2207) 0.3 MG/DL ALKALINE PHOSPHATASE (test code = 2204) 90 U/L AST (test code = 2218) 23 U/L ALT (test code = 2219) 9 U/L Delfino OrtaURIC [id number] 00:00:00* Test Item Value Reference Range Interpretation Comme nts URIC ACID (test code = 2233) 7.8 MG/DL Delfino Schumacher YouCBC W/AUTO [id number] 00:00:00* Test Item Value Reference Range Interpretation Comme nts WBC (test code = 1001) 3.5 K/UL [...] COUNT (test code = 1015) 230 K/UL Delfino Schumacher YouCOMPREHENSIVE METABOLIC [id number] 00:00:00* Test Item Value Reference Range Interpretation Comme nts GLUCOSE (test code = 2217) 84 MG/DL BUN (test code = 2208) 12 MG/DL CREATININE (test code = 2214) 1.02 MG/DL eGFR AMER. (test cod e = 55026) 72 ML/MIN/1.73 eGFR NON- AMER. (test code = 93956) 62 ML/MIN/1.73 CALC BUN/CREAT (test code = 2235) 12 RATIO SODIUM (test code = 2231) 140 MEQ/L POTASSIUM (test code = 2228) 3.8 MEQ/L CHLORIDE (test code = 2215) 107 MEQ/L CARBON DIOXIDE (test code = 2206) 25 MEQ/L CALCIUM (test code = 2209) 9.4 MG/DL PROTEIN, TOTAL (test code = 2229) 9.7 G/DL ALBUMIN (test code = 2201) 3.7 G/DL CALC GLOBULIN (test code = 2240) 6.0 G/DL CALC A/G RATIO (test code = 2234) 0.6 RATIO BILIRUBIN, TOTAL (test code = 2207) 0.3 MG/DL ALKALINE PHOSPHATASE (test code = 2204) 90 U/L AST (test code = 2218) 23 U/L ALT (test code = 2219) 9 U/L Delfino OrtaURIC [id number] 00:00:00* Test Item Value Reference Range Interpretation Comme nts URIC ACID (test code = 2233) 7.8 MG/DL Delfino OrtaCBC W/AUTO [id number] 00:00:00* Test Item Value Reference Range Interpretation Comme nts WBC (test code = 1001) 3.5 K/UL [...] COUNT (test code = 1015) 230 K/UL Delfino OrtaCOMPREHENSIVE METABOLIC [id number] 00:00:00* Test Item Value Reference Range Interpretation Comme nts GLUCOSE (test code = 2217) 84 MG/DL BUN (test code = 2208) 12 MG/DL CREATININE (test code = 2214) 1.02 MG/DL eGFR AMER. (test cod e = 78990) 72 ML/MIN/1.73 eGFR NON- AMER. (test code = 26050) 62 ML/MIN/1.73 CALC BUN/CREAT (test code = 2235) 12 RATIO SODIUM (test code = 2231) 140 MEQ/L POTASSIUM (test code = 2228) 3.8 MEQ/L CHLORIDE (test code = 2215) 107 MEQ/L CARBON DIOXIDE (test code = 2206) 25 MEQ/L CALCIUM (test code = 2209) 9.4 MG/DL PROTEIN, TOTAL (test code = 2229) 9.7 G/DL ALBUMIN (test code = 2201) 3.7 G/DL CALC GLOBULIN (test code = 2240) 6.0 G/DL CALC A/G RATIO (test code = 2234) 0.6 RATIO BILIRUBIN, TOTAL (test code = 2207) 0.3 MG/DL ALKALINE PHOSPHATASE (test code = 2204) 90 U/L AST (test code = 2218) 23 U/L ALT (test code = 2219) 9 U/L Delfino OrtaURIC [id number] 00:00:00* Test Item Value Reference Range Interpretation Comme nts URIC ACID (test code = 2233) 7.8 MG/DL Delfino OrtaC W/AUTO [id number] 00:00:00* Test Item Value Reference Range Interpretation Comme nts WBC (test code = 1001) 3.5 K/UL [...] COUNT (test code = 1015) 230 K/UL Delfino OrtaCOMPREHENSIVE METABOLIC [id number] 00:00:00* Test Item Value Reference Range Interpretation Comme nts GLUCOSE (test code = 2217) 84 MG/DL BUN (test code = 2208) 12 MG/DL CREATININE (test code = 2214) 1.02 MG/DL eGFR AMER. (test cod e = 08142) 72 ML/MIN/1.73 eGFR NON- AMER. (test code = 48515) 62 ML/MIN/1.73 CALC BUN/CREAT (test code = 2235) 12 RATIO SODIUM (test code = 2231) 140 MEQ/L POTASSIUM (test code = 2228) 3.8 MEQ/L CHLORIDE (test code = 2215) 107 MEQ/L CARBON DIOXIDE (test code = 2206) 25 MEQ/L CALCIUM (test code = 2209) 9.4 MG/DL PROTEIN, TOTAL (test code = 2229) 9.7 G/DL ALBUMIN (test code = 2201) 3.7 G/DL CALC GLOBULIN (test code = 2240) 6.0 G/DL CALC A/G RATIO (test code = 2234) 0.6 RATIO BILIRUBIN, TOTAL (test code = 2207) 0.3 MG/DL ALKALINE PHOSPHATASE (test code = 2204) 90 U/L AST (test code = 2218) 23 U/L ALT (test code = 2219) 9 U/L Delfino OrtaURIC [id number] 00:00:00* Test Item Value Reference Range Interpretation Comme nts URIC ACID (test code = 2233) 7.8 MG/DL Delfino OrtaCBC W/AUTO [id number] 00:00:00* Test Item Value Reference Range Interpretation Comme nts WBC (test code = 1001) 3.5 K/UL [...] COUNT (test code = 1015) 230 K/UL Delfino OrtaCOMPREHENSIVE METABOLIC [id number] 00:00:00* Test Item Value Reference Range Interpretation Comme nts GLUCOSE (test code = 2217) 84 MG/DL BUN (test code = 2208) 12 MG/DL CREATININE (test code = 2214) 1.02 MG/DL eGFR AMER. (test cod e = 29629) 72 ML/MIN/1.73 eGFR NON- AMER. (test code = 47081) 62 ML/MIN/1.73 CALC BUN/CREAT (test code = 2235) 12 RATIO SODIUM (test code = 2231) 140 MEQ/L POTASSIUM (test code = 2228) 3.8 MEQ/L CHLORIDE (test code = 2215) 107 MEQ/L CARBON DIOXIDE (test code = 2206) 25 MEQ/L CALCIUM (test code = 2209) 9.4 MG/DL PROTEIN, TOTAL (test code = 2229) 9.7 G/DL ALBUMIN (test code = 2201) 3.7 G/DL CALC GLOBULIN (test code = 2240) 6.0 G/DL CALC A/G RATIO (test code = 2234) 0.6 RATIO BILIRUBIN, TOTAL (test code = 2207) 0.3 MG/DL ALKALINE PHOSPHATASE (test code = 2204) 90 U/L AST (test code = 2218) 23 U/L ALT (test code = 2219) 9 U/L Delfino OrtaURIC [id number] 00:00:00* Test Item Value Reference Range Interpretation Comme nts URIC ACID (test code = 2233) 7.8 MG/DL Delfino OrtaCBC W/AUTO [id number] 00:00:00* Test Item Value Reference Range Interpretation Comme nts WBC (test code = 1001) 3.5 K/UL [...] COUNT (test code = 1015) 230 K/UL Delfino OrtaCOMPREHENSIVE METABOLIC [id number] 00:00:00* Test Item Value Reference Range Interpretation Comme nts GLUCOSE (test code = 2217) 84 MG/DL BUN (test code = 2208) 12 MG/DL CREATININE (test code = 2214) 1.02 MG/DL eGFR AMER. (test cod e = 30321) 72 ML/MIN/1.73 eGFR NON- AMER. (test code = 10882) 62 ML/MIN/1.73 CALC BUN/CREAT (test code = 2235) 12 RATIO SODIUM (test code = 2231) 140 MEQ/L POTASSIUM (test code = 2228) 3.8 MEQ/L CHLORIDE (test code = 2215) 107 MEQ/L CARBON DIOXIDE (test code = 2206) 25 MEQ/L CALCIUM (test code = 2209) 9.4 MG/DL PROTEIN, TOTAL (test code = 2229) 9.7 G/DL ALBUMIN (test code = 2201) 3.7 G/DL CALC GLOBULIN (test code = 2240) 6.0 G/DL CALC A/G RATIO (test code = 2234) 0.6 RATIO BILIRUBIN, TOTAL (test code = 2207) 0.3 MG/DL ALKALINE PHOSPHATASE (test code = 2204) 90 U/L AST (test code = 2218) 23 U/L ALT (test code = 2219) 9 U/L Delfino OrtaURIC [id number] 00:00:00* Test Item Value Reference Range Interpretation Comme nts URIC ACID (test code = 2233) 7.8 MG/DL Delfino OrtaCBC W/AUTO [id number] 00:00:00* Test Item Value Reference Range Interpretation Comme nts WBC (test code = 1001) 4.5 K/UL [...] COUNT (test code = 1015) 317 K/UL Delfino Schumacher [place] [id number] 00:00:00* Test Item Value Reference Range Interpretation Comme nts CHOLESTEROL (test code = 2210) 215 MG/DL TRIGLYCERIDES (test code = 2232) 61 MG/DL HDL CHOLESTEROL (test code = 2220) 93 MG/DL CALC LDL CHOL (test code = 2237) 110 MG/DL RISK RATIO LDL/HDL (test cod e = 2238) 1.18 RATIO Delfino Schumacher YouCOMPREHENSIVE METABOLIC [id number] 00:00:00* Test Item Value Reference Range Interpretation Comme nts GLUCOSE (test code = 2217) 93 MG/DL BUN (test code = 2208) 20 MG/DL CREATININE (test code = 2214) 1.18 MG/DL eGFR AMER. (test cod e = 04178) 61 ML/MIN/1.73 eGFR NON- AMER. (test code = 01363) 52 ML/MIN/1.73 CALC BUN/CREAT (test code = 2235) 17 RATIO SODIUM (test code = 2231) 138 MEQ/L POTASSIUM (test code = 2228) 4.0 MEQ/L CHLORIDE (test code = 2215) 105 MEQ/L CARBON DIOXIDE (test code = 2206) 23 MEQ/L CALCIUM (test code = 2209) 9.6 MG/DL PROTEIN, TOTAL (test code = 2229) 10.3 G/DL ALBUMIN (test code = 2201) 3.9 G/DL CALC GLOBULIN (test code = 2240) 6.4 G/DL CALC A/G RATIO (test code = 2234) 0.6 RATIO BILIRUBIN, TOTAL (test code = 2207) 0.4 MG/DL ALKALINE PHOSPHATASE (test code = 2204) 105 U/L AST (test code = 2218) 39 U/L ALT (test code = 2219) 15 U/L [facility] [id number] 00:00:00* Test Item Value Reference Range Interpretation Comme nts WBC (test code = 1001) 4.5 K/UL [...] COUNT (test code = 1015) 317 K/UL [facility] W[facility]AUTO [id number] 00:00:00* Test Item Value Reference Range Interpretation Comme nts WBC (test code = 1001) 4.5 K/UL [...] code = 1015) 317 K/UL CBC W/AUTO [id number] 00:00:00* Test Item Value Reference Range Interpretation Comme nts WBC (test code = 1001) 4.5 K/UL [...] code = 1015) 317 K/UL CBC W/AUTO [id number] 00:00:00* Test Item Value Reference Range Interpretation Comme nts WBC (test code = 1001) 4.5 K/UL [...] (test code = 1015) 317 K/UL LIPID [id number] 00:00:00* Test Item Value Reference Range Interpretation Comme nts CHOLESTEROL (test code = 2210) 215 MG/DL TRIGLYCERIDES (test code = 2232) 61 MG/DL HDL CHOLESTEROL (test code = 2220) 93 MG/DL CALC LDL CHOL (test code = 2237) 110 MG/DL RISK RATIO LDL/HDL (test cod e = 2238) 1.18 RATIO LIPID [id number] 00:00:00* Test Item Value Reference Range Interpretation Comme nts CHOLESTEROL (test code = 2210) 215 MG/DL TRIGLYCERIDES (test code = 2232) 61 MG/DL HDL CHOLESTEROL (test code = 2220) 93 MG/DL CALC LDL CHOL (test code = 2237) 110 MG/DL RISK RATIO LDL/HDL (test cod e = 2238) 1.18 RATIO COMPREHENSIVE METABOLIC [id number] 00:00:00* Test Item Value Reference Range Interpretation Comme nts GLUCOSE (test code = 2217) 93 MG/DL BUN (test code = 2208) 20 MG/DL CREATININE (test code = 2214) 1.18 MG/DL eGFR AMER. (test cod e = 30630) 61 ML/MIN/1.73 eGFR NON- AMER. (test code = 50728) 52 ML/MIN/1.73 CALC BUN/CREAT (test code = 2235) 17 RATIO SODIUM (test code = 2231) 138 MEQ/L POTASSIUM (test code = 2228) 4.0 MEQ/L CHLORIDE (test code = 2215) 105 MEQ/L CARBON DIOXIDE (test code = 2206) 23 MEQ/L CALCIUM (test code = 2209) 9.6 MG/DL PROTEIN, TOTAL (test code = 2229) 10.3 G/DL ALBUMIN (test code = 2201) 3.9 G/DL CALC GLOBULIN (test code = 2240) 6.4 G/DL CALC A/G RATIO (test code = 2234) 0.6 RATIO BILIRUBIN, TOTAL (test code = 2207) 0.4 MG/DL ALKALINE PHOSPHATASE (test code = 2204) 105 U/L AST (test code = 2218) 39 U/L ALT (test code = 2219) 15 U/L COMPREHENSIVE METABOLIC [id number] 00:00:00* Test Item Value Reference Range Interpretation Comme nts GLUCOSE (test code = 2217) 93 MG/DL BUN (test code = 2208) 20 MG/DL CREATININE (test code = 2214) 1.18 MG/DL eGFR AMER. (test cod e = 90736) 61 ML/MIN/1.73 eGFR NON- AMER. (test code = 16219) 52 ML/MIN/1.73 CALC BUN/CREAT (test code = 2235) 17 RATIO SODIUM (test code = 2231) 138 MEQ/L POTASSIUM (test code = 2228) 4.0 MEQ/L CHLORIDE (test code = 2215) 105 MEQ/L CARBON DIOXIDE (test code = 2206) 23 MEQ/L CALCIUM (test code = 2209) 9.6 MG/DL PROTEIN, TOTAL (test code = 2229) 10.3 G/DL ALBUMIN (test code = 2201) 3.9 G/DL CALC GLOBULIN (test code = 2240) 6.4 G/DL CALC A/G RATIO (test code = 2234) 0.6 RATIO BILIRUBIN, TOTAL (test code = 2207) 0.4 MG/DL ALKALINE PHOSPHATASE (test code = 2204) 105 U/L AST (test code = 2218) 39 U/L ALT (test code = 2219) 15 U/L CBC W/AUTO [id number] 00:00:00* Test Item Value Reference Range Interpretation Comme nts WBC (test code = 1001) 4.5 K/UL [...] code = 1015) 317 K/UL CBC W/AUTO [id number] 00:00:00* Test Item Value Reference Range Interpretation Comme nts WBC (test code = 1001) 4.5 K/UL [...] code = 1015) 317 K/UL CBC W/AUTO [id number] 00:00:00* Test Item Value Reference Range Interpretation Comme nts WBC (test code = 1001) 4.5 K/UL [...] (test code = 1015) 317 K/UL LIPID [id number] 00:00:00* Test Item Value Reference Range Interpretation Comme nts CHOLESTEROL (test code = 2210) 215 MG/DL TRIGLYCERIDES (test code = 2232) 61 MG/DL HDL CHOLESTEROL (test code = 2220) 93 MG/DL CALC LDL CHOL (test code = 2237) 110 MG/DL RISK RATIO LDL/HDL (test cod e = 2238) 1.18 RATIO LIPID [id number] 00:00:00* Test Item Value Reference Range Interpretation Comme nts CHOLESTEROL (test code = 2210) 215 MG/DL TRIGLYCERIDES (test code = 2232) 61 MG/DL HDL CHOLESTEROL (test code = 2220) 93 MG/DL CALC LDL CHOL (test code = 2237) 110 MG/DL RISK RATIO LDL/HDL (test cod e = 2238) 1.18 RATIO COMPREHENSIVE METABOLIC [id number] 00:00:00* Test Item Value Reference Range Interpretation Comme nts GLUCOSE (test code = 2217) 93 MG/DL BUN (test code = 2208) 20 MG/DL CREATININE (test code = 2214) 1.18 MG/DL eGFR AMER. (test cod e = 21768) 61 ML/MIN/1.73 eGFR NON- AMER. (test code = 89455) 52 ML/MIN/1.73 CALC BUN/CREAT (test code = 2235) 17 RATIO SODIUM (test code = 2231) 138 MEQ/L POTASSIUM (test code = 2228) 4.0 MEQ/L CHLORIDE (test code = 2215) 105 MEQ/L CARBON DIOXIDE (test code = 2206) 23 MEQ/L CALCIUM (test code = 2209) 9.6 MG/DL PROTEIN, TOTAL (test code = 2229) 10.3 G/DL ALBUMIN (test code = 2201) 3.9 G/DL CALC GLOBULIN (test code = 2240) 6.4 G/DL CALC A/G RATIO (test code = 2234) 0.6 RATIO BILIRUBIN, TOTAL (test code = 2207) 0.4 MG/DL ALKALINE PHOSPHATASE (test code = 2204) 105 U/L AST (test code = 2218) 39 U/L ALT (test code = 2219) 15 U/L COMPREHENSIVE METABOLIC [id number] 00:00:00* Test Item Value Reference Range Interpretation Comme nts GLUCOSE (test code = 2217) 93 MG/DL BUN (test code = 2208) 20 MG/DL CREATININE (test code = 2214) 1.18 MG/DL eGFR AMER. (test cod e = 09286) 61 ML/MIN/1.73 eGFR NON- AMER. (test code = 20546) 52 ML/MIN/1.73 CALC BUN/CREAT (test code = 2235) 17 RATIO SODIUM (test code = 2231) 138 MEQ/L POTASSIUM (test code = 2228) 4.0 MEQ/L CHLORIDE (test code = 2215) 105 MEQ/L CARBON DIOXIDE (test code = 2206) 23 MEQ/L CALCIUM (test code = 2209) 9.6 MG/DL PROTEIN, TOTAL (test code = 2229) 10.3 G/DL ALBUMIN (test code = 2201) 3.9 G/DL CALC GLOBULIN (test code = 2240) 6.4 G/DL CALC A/G RATIO (test code = 2234) 0.6 RATIO BILIRUBIN, TOTAL (test code = 2207) 0.4 MG/DL ALKALINE PHOSPHATASE (test code = 2204) 105 U/L AST (test code = 2218) 39 U/L ALT (test code = 2219) 15 U/L CBC W/AUTO [id number] 00:00:00* Test Item Value Reference Range Interpretation Comme nts WBC (test code = 1001) 4.5 K/UL [...] code = 1015) 317 K/UL CBC W/AUTO [id number] 00:00:00* Test Item Value Reference Range Interpretation Comme nts WBC (test code = 1001) 4.5 K/UL [...] (test code = 1015) 317 K/UL LIPID [id number] 00:00:00* Test Item Value Reference Range Interpretation Comme nts CHOLESTEROL (test code = 2210) 215 MG/DL TRIGLYCERIDES (test code = 2232) 61 MG/DL HDL CHOLESTEROL (test code = 2220) 93 MG/DL CALC LDL CHOL (test code = 2237) 110 MG/DL RISK RATIO LDL/HDL (test cod e = 2238) 1.18 RATIO COMPREHENSIVE METABOLIC [id number] 00:00:00* Test Item Value Reference Range Interpretation Comme nts GLUCOSE (test code = 2217) 93 MG/DL BUN (test code = 2208) 20 MG/DL CREATININE (test code = 2214) 1.18 MG/DL eGFR AMER. (test cod e = 48365) 61 ML/MIN/1.73 eGFR NON- AMER. (test code = 68183) 52 ML/MIN/1.73 CALC BUN/CREAT (test code = 2235) 17 RATIO SODIUM (test code = 2231) 138 MEQ/L POTASSIUM (test code = 2228) 4.0 MEQ/L CHLORIDE (test code = 2215) 105 MEQ/L CARBON DIOXIDE (test code = 2206) 23 MEQ/L CALCIUM (test code = 2209) 9.6 MG/DL PROTEIN, TOTAL (test code = 2229) 10.3 G/DL ALBUMIN (test code = 2201) 3.9 G/DL CALC GLOBULIN (test code = 2240) 6.4 G/DL CALC A/G RATIO (test code = 2234) 0.6 RATIO BILIRUBIN, TOTAL (test code = 2207) 0.4 MG/DL ALKALINE PHOSPHATASE (test code = 2204) 105 U/L AST (test code = 2218) 39 U/L ALT (test code = 2219) 15 U/L CBC W/AUTO [id number] 00:00:00* Test Item Value Reference Range Interpretation Comme nts WBC (test code = 1001) 4.5 K/UL [...] code = 1015) 317 K/UL CBC W/AUTO [id number] 00:00:00* Test Item Value Reference Range Interpretation Comme nts WBC (test code = 1001) 4.5 K/UL [...] code = 1015) 317 K/UL CBC W/AUTO [id number] 00:00:00* Test Item Value Reference Range Interpretation Comme nts WBC (test code = 1001) 4.5 K/UL [...] (test code = 1015) 317 K/UL LIPID [id number] 00:00:00* Test Item Value Reference Range Interpretation Comme nts CHOLESTEROL (test code = 2210) 215 MG/DL TRIGLYCERIDES (test code = 2232) 61 MG/DL HDL CHOLESTEROL (test code = 2220) 93 MG/DL CALC LDL CHOL (test code = 2237) 110 MG/DL RISK RATIO LDL/HDL (test cod e = 2238) 1.18 RATIO LIPID [id number] 00:00:00* Test Item Value Reference Range Interpretation Comme nts CHOLESTEROL (test code = 2210) 215 MG/DL TRIGLYCERIDES (test code = 2232) 61 MG/DL HDL CHOLESTEROL (test code = 2220) 93 MG/DL CALC LDL CHOL (test code = 2237) 110 MG/DL RISK RATIO LDL/HDL (test cod e = 2238) 1.18 RATIO COMPREHENSIVE METABOLIC [id number] 00:00:00* Test Item Value Reference Range Interpretation Comme nts GLUCOSE (test code = 2217) 93 MG/DL BUN (test code = 2208) 20 MG/DL CREATININE (test code = 2214) 1.18 MG/DL eGFR AMER. (test cod e = 70550) 61 ML/MIN/1.73 eGFR NON- AMER. (test code = 12583) 52 ML/MIN/1.73 CALC BUN/CREAT (test code = 2235) 17 RATIO SODIUM (test code = 2231) 138 MEQ/L POTASSIUM (test code = 2228) 4.0 MEQ/L CHLORIDE (test code = 2215) 105 MEQ/L CARBON DIOXIDE (test code = 2206) 23 MEQ/L CALCIUM (test code = 2209) 9.6 MG/DL PROTEIN, TOTAL (test code = 2229) 10.3 G/DL ALBUMIN (test code = 2201) 3.9 G/DL CALC GLOBULIN (test code = 2240) 6.4 G/DL CALC A/G RATIO (test code = 2234) 0.6 RATIO BILIRUBIN, TOTAL (test code = 2207) 0.4 MG/DL ALKALINE PHOSPHATASE (test code = 2204) 105 U/L AST (test code = 2218) 39 U/L ALT (test code = 2219) 15 U/L COMPREHENSIVE METABOLIC [id number] 00:00:00* Test Item Value Reference Range Interpretation Comme nts GLUCOSE (test code = 2217) 93 MG/DL BUN (test code = 2208) 20 MG/DL CREATININE (test code = 2214) 1.18 MG/DL eGFR AMER. (test cod e = 23949) 61 ML/MIN/1.73 eGFR NON- AMER. (test code = 64333) 52 ML/MIN/1.73 CALC BUN/CREAT (test code = 2235) 17 RATIO SODIUM (test code = 2231) 138 MEQ/L POTASSIUM (test code = 2228) 4.0 MEQ/L CHLORIDE (test code = 2215) 105 MEQ/L CARBON DIOXIDE (test code = 2206) 23 MEQ/L CALCIUM (test code = 2209) 9.6 MG/DL PROTEIN, TOTAL (test code = 2229) 10.3 G/DL ALBUMIN (test code = 2201) 3.9 G/DL CALC GLOBULIN (test code = 2240) 6.4 G/DL CALC A/G RATIO (test code = 2234) 0.6 RATIO BILIRUBIN, TOTAL (test code = 2207) 0.4 MG/DL ALKALINE PHOSPHATASE (test code = 2204) 105 U/L AST (test code = 2218) 39 U/L ALT (test code = 2219) 15 U/L LIPID [id number] 00:00:00* Test Item Value Reference Range Interpretation Comme nts CHOLESTEROL (test code = 2210) 215 MG/DL TRIGLYCERIDES (test code = 2232) 61 MG/DL HDL CHOLESTEROL (test code = 2220) 93 MG/DL CALC LDL CHOL (test code = 2237) 110 MG/DL RISK RATIO LDL/HDL (test cod e = 2238) 1.18 RATIO Delfino F AustinCOMPREHENSIVE METABOLIC [id number] 00:00:00* Test Item Value Reference Range Interpretation Comme nts GLUCOSE (test code = 2217) 93 MG/DL BUN (test code = 2208) 20 MG/DL CREATININE (test code = 2214) 1.18 MG/DL eGFR AMER. (test cod e = 75865) 61 ML/MIN/1.73 eGFR NON- AMER. (test code = 54490) 52 ML/MIN/1.73 CALC BUN/CREAT (test code = 2235) 17 RATIO SODIUM (test code = 2231) 138 MEQ/L POTASSIUM (test code = 2228) 4.0 MEQ/L CHLORIDE (test code = 2215) 105 MEQ/L CARBON DIOXIDE (test code = 2206) 23 MEQ/L CALCIUM (test code = 2209) 9.6 MG/DL PROTEIN, TOTAL (test code = 2229) 10.3 G/DL ALBUMIN (test code = 2201) 3.9 G/DL CALC GLOBULIN (test code = 2240) 6.4 G/DL CALC A/G RATIO (test code = 2234) 0.6 RATIO BILIRUBIN, TOTAL (test code = 2207) 0.4 MG/DL ALKALINE PHOSPHATASE (test code = 2204) 105 U/L AST (test code = 2218) 39 U/L ALT (test code = 2219) 15 U/L Delfino OrtaCBC W/AUTO [id number] 00:00:00* Test Item Value Reference Range Interpretation Comme nts WBC (test code = 1001) 4.5 K/UL [...] COUNT (test code = 1015) 317 K/UL Delfino OrtaLIPID [id number] 00:00:00* Test Item Value Reference Range Interpretation Comme nts CHOLESTEROL (test code = 2210) 215 MG/DL TRIGLYCERIDES (test code = 2232) 61 MG/DL HDL CHOLESTEROL (test code = 2220) 93 MG/DL CALC LDL CHOL (test code = 2237) 110 MG/DL RISK RATIO LDL/HDL (test cod e = 2238) 1.18 RATIO Delfino OrtaCOMPREHENSIVE METABOLIC [id number] 00:00:00* Test Item Value Reference Range Interpretation Comme nts GLUCOSE (test code = 2217) 93 MG/DL BUN (test code = 2208) 20 MG/DL CREATININE (test code = 2214) 1.18 MG/DL eGFR AMER. (test cod e = 99523) 61 ML/MIN/1.73 eGFR NON- AMER. (test code = 44094) 52 ML/MIN/1.73 CALC BUN/CREAT (test code = 2235) 17 RATIO SODIUM (test code = 2231) 138 MEQ/L POTASSIUM (test code = 2228) 4.0 MEQ/L CHLORIDE (test code = 2215) 105 MEQ/L CARBON DIOXIDE (test code = 2206) 23 MEQ/L CALCIUM (test code = 2209) 9.6 MG/DL PROTEIN, TOTAL (test code = 2229) 10.3 G/DL ALBUMIN (test code = 2201) 3.9 G/DL CALC GLOBULIN (test code = 2240) 6.4 G/DL CALC A/G RATIO (test code = 2234) 0.6 RATIO BILIRUBIN, TOTAL (test code = 2207) 0.4 MG/DL ALKALINE PHOSPHATASE (test code = 2204) 105 U/L AST (test code = 2218) 39 U/L ALT (test code = 2219) 15 U/L Delfino OrtaCBC W/AUTO [id number] 00:00:00* Test Item Value Reference Range Interpretation Comme nts WBC (test code = 1001) 4.5 K/UL [...] COUNT (test code = 1015) 317 K/UL Delfino OrtaLIPID [id number] 00:00:00* Test Item Value Reference Range Interpretation Comme nts CHOLESTEROL (test code = 2210) 215 MG/DL TRIGLYCERIDES (test code = 2232) 61 MG/DL HDL CHOLESTEROL (test code = 2220) 93 MG/DL CALC LDL CHOL (test code = 2237) 110 MG/DL RISK RATIO LDL/HDL (test cod e = 2238) 1.18 RATIO Delfino OrtaCOMPREHENSIVE METABOLIC [id number] 00:00:00* Test Item Value Reference Range Interpretation Comme nts GLUCOSE (test code = 2217) 93 MG/DL BUN (test code = 2208) 20 MG/DL CREATININE (test code = 2214) 1.18 MG/DL eGFR AMER. (test cod e = 96091) 61 ML/MIN/1.73 eGFR NON- AMER. (test code = 39514) 52 ML/MIN/1.73 CALC BUN/CREAT (test code = 2235) 17 RATIO SODIUM (test code = 2231) 138 MEQ/L POTASSIUM (test code = 2228) 4.0 MEQ/L CHLORIDE (test code = 2215) 105 MEQ/L CARBON DIOXIDE (test code = 2206) 23 MEQ/L CALCIUM (test code = 2209) 9.6 MG/DL PROTEIN, TOTAL (test code = 2229) 10.3 G/DL ALBUMIN (test code = 2201) 3.9 G/DL CALC GLOBULIN (test code = 2240) 6.4 G/DL CALC A/G RATIO (test code = 2234) 0.6 RATIO BILIRUBIN, TOTAL (test code = 2207) 0.4 MG/DL ALKALINE PHOSPHATASE (test code = 2204) 105 U/L AST (test code = 2218) 39 U/L ALT (test code = 2219) 15 U/L Delfino Schumacher YouCBC W/AUTO [id number] 00:00:00* Test Item Value Reference Range Interpretation Comme nts WBC (test code = 1001) 4.5 K/UL [...] COUNT (test code = 1015) 317 K/UL Delfino OrtaLIPID [id number] 00:00:00* Test Item Value Reference Range Interpretation Comme nts CHOLESTEROL (test code = 2210) 215 MG/DL TRIGLYCERIDES (test code = 2232) 61 MG/DL HDL CHOLESTEROL (test code = 2220) 93 MG/DL CALC LDL CHOL (test code = 2237) 110 MG/DL RISK RATIO LDL/HDL (test cod e = 2238) 1.18 RATIO Delfino OrtaCOMPREHENSIVE METABOLIC [id number] 00:00:00* Test Item Value Reference Range Interpretation Comme nts GLUCOSE (test code = 2217) 93 MG/DL BUN (test code = 2208) 20 MG/DL CREATININE (test code = 2214) 1.18 MG/DL eGFR AMER. (test cod e = 93882) 61 ML/MIN/1.73 eGFR NON- AMER. (test code = 06760) 52 ML/MIN/1.73 CALC BUN/CREAT (test code = 2235) 17 RATIO SODIUM (test code = 2231) 138 MEQ/L POTASSIUM (test code = 2228) 4.0 MEQ/L CHLORIDE (test code = 2215) 105 MEQ/L CARBON DIOXIDE (test code = 2206) 23 MEQ/L CALCIUM (test code = 2209) 9.6 MG/DL PROTEIN, TOTAL (test code = 2229) 10.3 G/DL ALBUMIN (test code = 2201) 3.9 G/DL CALC GLOBULIN (test code = 2240) 6.4 G/DL CALC A/G RATIO (test code = 2234) 0.6 RATIO BILIRUBIN, TOTAL (test code = 2207) 0.4 MG/DL ALKALINE PHOSPHATASE (test code = 2204) 105 U/L AST (test code = 2218) 39 U/L ALT (test code = 2219) 15 U/L Delfino OrtaCBC W/AUTO [id number] 00:00:00* Test Item Value Reference Range Interpretation Comme nts WBC (test code = 1001) 4.5 K/UL [...] COUNT (test code = 1015) 317 K/UL Delfino Schumacher AustinLIPID [id number] 00:00:00* Test Item Value Reference Range Interpretation Comme nts CHOLESTEROL (test code = 2210) 215 MG/DL TRIGLYCERIDES (test code = 2232) 61 MG/DL HDL CHOLESTEROL (test code = 2220) 93 MG/DL CALC LDL CHOL (test code = 2237) 110 MG/DL RISK RATIO LDL/HDL (test cod e = 2238) 1.18 RATIO Delfino OrtaCOMPREHENSIVE METABOLIC [id number] 00:00:00* Test Item Value Reference Range Interpretation Comme nts GLUCOSE (test code = 2217) 93 MG/DL BUN (test code = 2208) 20 MG/DL CREATININE (test code = 2214) 1.18 MG/DL eGFR AMER. (test cod e = 01057) 61 ML/MIN/1.73 eGFR NON- AMER. (test code = 35412) 52 ML/MIN/1.73 CALC BUN/CREAT (test code = 2235) 17 RATIO SODIUM (test code = 2231) 138 MEQ/L POTASSIUM (test code = 2228) 4.0 MEQ/L CHLORIDE (test code = 2215) 105 MEQ/L CARBON DIOXIDE (test code = 2206) 23 MEQ/L CALCIUM (test code = 2209) 9.6 MG/DL PROTEIN, TOTAL (test code = 2229) 10.3 G/DL ALBUMIN (test code = 2201) 3.9 G/DL CALC GLOBULIN (test code = 2240) 6.4 G/DL CALC A/G RATIO (test code = 2234) 0.6 RATIO BILIRUBIN, TOTAL (test code = 2207) 0.4 MG/DL ALKALINE PHOSPHATASE (test code = 2204) 105 U/L AST (test code = 2218) 39 U/L ALT (test code = 2219) 15 U/L Delfino OrtaCBC W/AUTO [id number] 00:00:00* Test Item Value Reference Range Interpretation Comme nts WBC (test code = 1001) 4.5 K/UL [...] COUNT (test code = 1015) 317 K/UL Delfino OrtaLIPID [id number] 00:00:00* Test Item Value Reference Range Interpretation Comme nts CHOLESTEROL (test code = 2210) 215 MG/DL TRIGLYCERIDES (test code = 2232) 61 MG/DL HDL CHOLESTEROL (test code = 2220) 93 MG/DL CALC LDL CHOL (test code = 2237) 110 MG/DL RISK RATIO LDL/HDL (test cod e = 2238) 1.18 RATIO Delfino OrtaCOMPREHENSIVE METABOLIC [id number] 00:00:00* Test Item Value Reference Range Interpretation Comme nts GLUCOSE (test code = 2217) 93 MG/DL BUN (test code = 2208) 20 MG/DL CREATININE (test code = 2214) 1.18 MG/DL eGFR AMER. (test cod e = 16194) 61 ML/MIN/1.73 eGFR NON- AMER. (test code = 55786) 52 ML/MIN/1.73 CALC BUN/CREAT (test code = 2235) 17 RATIO SODIUM (test code = 2231) 138 MEQ/L POTASSIUM (test code = 2228) 4.0 MEQ/L CHLORIDE (test code = 2215) 105 MEQ/L CARBON DIOXIDE (test code = 2206) 23 MEQ/L CALCIUM (test code = 2209) 9.6 MG/DL PROTEIN, TOTAL (test code = 2229) 10.3 G/DL ALBUMIN (test code = 2201) 3.9 G/DL CALC GLOBULIN (test code = 2240) 6.4 G/DL CALC A/G RATIO (test code = 2234) 0.6 RATIO BILIRUBIN, TOTAL (test code = 2207) 0.4 MG/DL ALKALINE PHOSPHATASE (test code = 2204) 105 U/L AST (test code = 2218) 39 U/L ALT (test code = 2219) 15 U/L Delfino Endy YouCBC W/AUTO [id number] 00:00:00* Test Item Value Reference Range Interpretation Comme nts WBC (test code = 1001) 4.5 K/UL [...] COUNT (test code = 1015) 317 K/UL Delfino OrtaLIPID [id number] 00:00:00* Test Item Value Reference Range Interpretation Comme nts CHOLESTEROL (test code = 2210) 215 MG/DL TRIGLYCERIDES (test code = 2232) 61 MG/DL HDL CHOLESTEROL (test code = 2220) 93 MG/DL CALC LDL CHOL (test code = 2237) 110 MG/DL RISK RATIO LDL/HDL (test cod e = 2238) 1.18 RATIO Delfino F YouCOMPREHENSIVE METABOLIC [id number] 00:00:00* Test Item Value Reference Range Interpretation Comme nts GLUCOSE (test code = 2217) 93 MG/DL BUN (test code = 2208) 20 MG/DL CREATININE (test code = 2214) 1.18 MG/DL eGFR AMER. (test cod e = 54632) 61 ML/MIN/1.73 eGFR NON- AMER. (test code = 21458) 52 ML/MIN/1.73 CALC BUN/CREAT (test code = 2235) 17 RATIO SODIUM (test code = 2231) 138 MEQ/L POTASSIUM (test code = 2228) 4.0 MEQ/L CHLORIDE (test code = 2215) 105 MEQ/L CARBON DIOXIDE (test code = 2206) 23 MEQ/L CALCIUM (test code = 2209) 9.6 MG/DL PROTEIN, TOTAL (test code = 2229) 10.3 G/DL ALBUMIN (test code = 2201) 3.9 G/DL CALC GLOBULIN (test code = 2240) 6.4 G/DL CALC A/G RATIO (test code = 2234) 0.6 RATIO BILIRUBIN, TOTAL (test code = 2207) 0.4 MG/DL ALKALINE PHOSPHATASE (test code = 2204) 105 U/L AST (test code = 2218) 39 U/L ALT (test code = 2219) 15 U/L Delfino OrtaCULTURE, URINE [ADDED]2017-08-24 00:00:00* Test Item Value Reference Range Interpretation Comme nts CULTURE, URINE (test code = 09243) SPECIMEN NUMBER: [id number] Delfino Schumacher AustinCULTURE, URINE [ADDED]2017-08-24 00:00:00* Test Item Value Reference Range Interpretation Comme nts CULTURE, URINE (test code = 74855) SPECIMEN NUMBER: [id number] CULTURE, URINE [ADDED]2017-08-24 00:00:00* Test Item Value Reference Range Interpretation Comme nts CULTURE, URINE (test code = 70857) SPECIMEN NUMBER: [id number] CULTURE, URINE [ADDED]2017-08-24 00:00:00* Test Item Value Reference Range Interpretation Comme nts CULTURE, URINE (test code = 34264) SPECIMEN NUMBER: [id number] CULTURE, URINE [ADDED]2017-08-24 00:00:00* Test Item Value Reference Range Interpretation Comme nts CULTURE, URINE (test code = 18441) SPECIMEN NUMBER: [id number] CULTURE, URINE [ADDED]2017-08-24 00:00:00* Test Item Value Reference Range Interpretation Comme nts CULTURE, URINE (test code = 22931) SPECIMEN NUMBER: [id number] CULTURE, URINE [ADDED]2017-08-24 00:00:00* Test Item Value Reference Range Interpretation Comme nts CULTURE, URINE (test code = 09008) SPECIMEN NUMBER: [id number] CULTURE, URINE [ADDED]2017-08-24 00:00:00* Test Item Value Reference Range Interpretation Comme nts CULTURE, URINE (test code = 95831) SPECIMEN NUMBER: [id number] CULTURE, URINE [ADDED]2017-08-24 00:00:00* Test Item Value Reference Range Interpretation Comme nts CULTURE, URINE (test code = 57674) SPECIMEN NUMBER: [id number] Delfino OrtaCULTURE, URINE [ADDED]2017-08-24 00:00:00* Test Item Value Reference Range Interpretation Comme nts CULTURE, URINE (test code = 71322) SPECIMEN NUMBER: [id number] Delfino Schumacher AustinCULTURE, URINE [ADDED]2017-08-24 00:00:00* Test Item Value Reference Range Interpretation Comme nts CULTURE, URINE (test code = 35120) SPECIMEN NUMBER: [id number] Delfino OrtaCULTURE, URINE [ADDED]2017-08-24 00:00:00* Test Item Value Reference Range Interpretation Comme nts CULTURE, URINE (test code = 89025) SPECIMEN NUMBER: [id number] eDlfino Schumacher AustinCULTURE, URINE [ADDED]2017-08-24 00:00:00* Test Item Value Reference Range Interpretation Comme nts CULTURE, URINE (test code = 89499) SPECIMEN NUMBER: [id number] Delfino Schumacher AustinCULTURE, URINE [ADDED]2017-08-24 00:00:00* Test Item Value Reference Range Interpretation Comme nts CULTURE, URINE (test code = 11402) SPECIMEN NUMBER: [id number] Delfino Schumacher AustinCULTURE, URINE [ADDED]2017-08-24 00:00:00* Test Item Value Reference Range Interpretation Comme nts CULTURE, URINE (test code = 16219) SPECIMEN NUMBER: [id number] Delfino OrtaCOMPREHENSIVE METABOLIC [id number] 00:00:00* Test Item Value Reference Range Interpretation Comme nts GLUCOSE (test code = 2217) 92 MG/DL BUN (test code = 2208) 23 MG/DL CREATININE (test code = 2214) 1.27 MG/DL eGFR AMER. (test cod e = 30311) 55 ML/MIN/1.73 eGFR NON- AMER. (test code = 93144) 48 ML/MIN/1.73 CALC BUN/CREAT (test code = 2235) 18 RATIO SODIUM (test code = 2231) 137 MEQ/L POTASSIUM (test code = 2228) 4.7 MEQ/L CHLORIDE (test code = 2215) 105 MEQ/L CARBON DIOXIDE (test code = 2206) 22 MEQ/L CALCIUM (test code = 2209) 9.4 MG/DL PROTEIN, TOTAL (test code = 2229) 10.1 G/DL ALBUMIN (test code = 2201) 4.2 G/DL CALC GLOBULIN (test code = 2240) 5.9 G/DL CALC A/G RATIO (test code = 2234) 0.7 RATIO BILIRUBIN, TOTAL (test code = 2207) 0.4 MG/DL ALKALINE PHOSPHATASE (test code = 2204) 102 U/L AST (test code = 2218) 31 U/L ALT (test code = 2219) 23 U/L Delfino OrtaHEPATITIS C REFLEX [id number] 00:00:00* Test Item Value Reference Range Interpretation Comme nts HEPATITIS C ANTIBODY (test c ode = 4675) NON-REACTIVE Delfino Schumacher YouCBC W/AUTO [id number] 00:00:00* Test Item Value Reference Range Interpretation Comme nts WBC (test code = 1001) 3.3 K/UL [...] K/UL COMMENTS (test code = 1016) (NOTE) [facility] [id number] 00:00:00* Test Item Value Reference Range Interpretation Comme nts WBC (test code = 1001) 3.3 K/UL [...] K/UL COMMENTS (test code = 1016) (NOTE) Delfino OrtaCOMPREHENSIVE METABOLIC [id number] 00:00:00* Test Item Value Reference Range Interpretation Comme nts GLUCOSE (test code = 2217) 92 MG/DL BUN (test code = 2208) 23 MG/DL CREATININE (test code = 2214) 1.27 MG/DL eGFR AMER. (test cod e = 59277) 55 ML/MIN/1.73 eGFR NON- AMER. (test code = 98531) 48 ML/MIN/1.73 CALC BUN/CREAT (test code = 2235) 18 RATIO SODIUM (test code = 2231) 137 MEQ/L POTASSIUM (test code = 2228) 4.7 MEQ/L CHLORIDE (test code = 2215) 105 MEQ/L CARBON DIOXIDE (test code = 2206) 22 MEQ/L CALCIUM (test code = 2209) 9.4 MG/DL PROTEIN, TOTAL (test code = 2229) 10.1 G/DL ALBUMIN (test code = 2201) 4.2 G/DL CALC GLOBULIN (test code = 2240) 5.9 G/DL CALC A/G RATIO (test code = 2234) 0.7 RATIO BILIRUBIN, TOTAL (test code = 2207) 0.4 MG/DL ALKALINE PHOSPHATASE (test code = 2204) 102 U/L AST (test code = 2218) 31 U/L ALT (test code = 2219) 23 U/L Delfino OrtaCBC W/AUTO [id number] 00:00:00* Test Item Value Reference Range Interpretation Comme nts WBC (test code = 1001) 3.3 K/UL [...] (test code = 1016) (NOTE) CBC W/AUTO [id number] 00:00:00* Test Item Value Reference Range Interpretation Comme nts WBC (test code = 1001) 3.3 K/UL [...] (test code = 1016) (NOTE) CBC W/AUTO [id number] 00:00:00* Test Item Value Reference Range Interpretation Comme nts WBC (test code = 1001) 3.3 K/UL [...] (test code = 1016) (NOTE) COMPREHENSIVE METABOLIC [id number] 00:00:00* Test Item Value Reference Range Interpretation Comme nts GLUCOSE (test code = 2217) 92 MG/DL BUN (test code = 2208) 23 MG/DL CREATININE (test code = 2214) 1.27 MG/DL eGFR AMER. (test cod e = 10712) 55 ML/MIN/1.73 eGFR NON- AMER. (test code = 15883) 48 ML/MIN/1.73 CALC BUN/CREAT (test code = 2235) 18 RATIO SODIUM (test code = 2231) 137 MEQ/L POTASSIUM (test code = 2228) 4.7 MEQ/L CHLORIDE (test code = 2215) 105 MEQ/L CARBON DIOXIDE (test code = 2206) 22 MEQ/L CALCIUM (test code = 2209) 9.4 MG/DL PROTEIN, TOTAL (test code = 2229) 10.1 G/DL ALBUMIN (test code = 2201) 4.2 G/DL CALC GLOBULIN (test code = 2240) 5.9 G/DL CALC A/G RATIO (test code = 2234) 0.7 RATIO BILIRUBIN, TOTAL (test code = 2207) 0.4 MG/DL ALKALINE PHOSPHATASE (test code = 2204) 102 U/L AST (test code = 2218) 31 U/L ALT (test code = 2219) 23 U/L COMPREHENSIVE METABOLIC [id number] 00:00:00* Test Item Value Reference Range Interpretation Comme nts GLUCOSE (test code = 2217) 92 MG/DL BUN (test code = 2208) 23 MG/DL CREATININE (test code = 2214) 1.27 MG/DL eGFR AMER. (test cod e = 11870) 55 ML/MIN/1.73 eGFR NON- AMER. (test code = 05329) 48 ML/MIN/1.73 CALC BUN/CREAT (test code = 2235) 18 RATIO SODIUM (test code = 2231) 137 MEQ/L POTASSIUM (test code = 2228) 4.7 MEQ/L CHLORIDE (test code = 2215) 105 MEQ/L CARBON DIOXIDE (test code = 2206) 22 MEQ/L CALCIUM (test code = 2209) 9.4 MG/DL PROTEIN, TOTAL (test code = 2229) 10.1 G/DL ALBUMIN (test code = 2201) 4.2 G/DL CALC GLOBULIN (test code = 2240) 5.9 G/DL CALC A/G RATIO (test code = 2234) 0.7 RATIO BILIRUBIN, TOTAL (test code = 2207) 0.4 MG/DL ALKALINE PHOSPHATASE (test code = 2204) 102 U/L AST (test code = 2218) 31 U/L ALT (test code = 2219) 23 U/L HEPATITIS C REFLEX [id number] 00:00:00* Test Item Value Reference Range Interpretation Comme nts HEPATITIS C ANTIBODY (test c ode = 4675) NON-REACTIVE HEPATITIS C REFLEX [id number] 00:00:00* Test Item Value Reference Range Interpretation Comme nts HEPATITIS C ANTIBODY (test c ode = 4675) NON-REACTIVE CBC W/AUTO [id number] 00:00:00* Test Item Value Reference Range Interpretation Comme nts WBC (test code = 1001) 3.3 K/UL [...] (test code = 1016) (NOTE) CBC W/AUTO [id number] 00:00:00* Test Item Value Reference Range Interpretation Comme nts WBC (test code = 1001) 3.3 K/UL [...] (test code = 1016) (NOTE) CBC W/AUTO [id number] 00:00:00* Test Item Value Reference Range Interpretation Comme nts WBC (test code = 1001) 3.3 K/UL [...] (test code = 1016) (NOTE) COMPREHENSIVE METABOLIC [id number] 00:00:00* Test Item Value Reference Range Interpretation Comme nts GLUCOSE (test code = 2217) 92 MG/DL BUN (test code = 2208) 23 MG/DL CREATININE (test code = 2214) 1.27 MG/DL eGFR AMER. (test cod e = 67192) 55 ML/MIN/1.73 eGFR NON- AMER. (test code = 10263) 48 ML/MIN/1.73 CALC BUN/CREAT (test code = 2235) 18 RATIO SODIUM (test code = 2231) 137 MEQ/L POTASSIUM (test code = 2228) 4.7 MEQ/L CHLORIDE (test code = 2215) 105 MEQ/L CARBON DIOXIDE (test code = 2206) 22 MEQ/L CALCIUM (test code = 2209) 9.4 MG/DL PROTEIN, TOTAL (test code = 2229) 10.1 G/DL ALBUMIN (test code = 2201) 4.2 G/DL CALC GLOBULIN (test code = 2240) 5.9 G/DL CALC A/G RATIO (test code = 2234) 0.7 RATIO BILIRUBIN, TOTAL (test code = 2207) 0.4 MG/DL ALKALINE PHOSPHATASE (test code = 2204) 102 U/L AST (test code = 2218) 31 U/L ALT (test code = 2219) 23 U/L COMPREHENSIVE METABOLIC [id number] 00:00:00* Test Item Value Reference Range Interpretation Comme nts GLUCOSE (test code = 2217) 92 MG/DL BUN (test code = 2208) 23 MG/DL CREATININE (test code = 2214) 1.27 MG/DL eGFR AMER. (test cod e = 75862) 55 ML/MIN/1.73 eGFR NON- AMER. (test code = 02554) 48 ML/MIN/1.73 CALC BUN/CREAT (test code = 2235) 18 RATIO SODIUM (test code = 2231) 137 MEQ/L POTASSIUM (test code = 2228) 4.7 MEQ/L CHLORIDE (test code = 2215) 105 MEQ/L CARBON DIOXIDE (test code = 2206) 22 MEQ/L CALCIUM (test code = 2209) 9.4 MG/DL PROTEIN, TOTAL (test code = 2229) 10.1 G/DL ALBUMIN (test code = 2201) 4.2 G/DL CALC GLOBULIN (test code = 2240) 5.9 G/DL CALC A/G RATIO (test code = 2234) 0.7 RATIO BILIRUBIN, TOTAL (test code = 2207) 0.4 MG/DL ALKALINE PHOSPHATASE (test code = 2204) 102 U/L AST (test code = 2218) 31 U/L ALT (test code = 2219) 23 U/L HEPATITIS C REFLEX [id number] 00:00:00* Test Item Value Reference Range Interpretation Comme nts HEPATITIS C ANTIBODY (test c ode = 4675) NON-REACTIVE HEPATITIS C REFLEX [id number] 00:00:00* Test Item Value Reference Range Interpretation Comme nts HEPATITIS C ANTIBODY (test c ode = 4675) NON-REACTIVE CBC W/AUTO [id number] 00:00:00* Test Item Value Reference Range Interpretation Comme nts WBC (test code = 1001) 3.3 K/UL [...] (test code = 1016) (NOTE) CBC W/AUTO [id number] 00:00:00* Test Item Value Reference Range Interpretation Comme nts WBC (test code = 1001) 3.3 K/UL [...] (test code = 1016) (NOTE) COMPREHENSIVE METABOLIC [id number] 00:00:00* Test Item Value Reference Range Interpretation Comme nts GLUCOSE (test code = 2217) 92 MG/DL BUN (test code = 2208) 23 MG/DL CREATININE (test code = 2214) 1.27 MG/DL eGFR AMER. (test cod e = 62131) 55 ML/MIN/1.73 eGFR NON- AMER. (test code = 93433) 48 ML/MIN/1.73 CALC BUN/CREAT (test code = 2235) 18 RATIO SODIUM (test code = 2231) 137 MEQ/L POTASSIUM (test code = 2228) 4.7 MEQ/L CHLORIDE (test code = 2215) 105 MEQ/L CARBON DIOXIDE (test code = 2206) 22 MEQ/L CALCIUM (test code = 2209) 9.4 MG/DL PROTEIN, TOTAL (test code = 2229) 10.1 G/DL ALBUMIN (test code = 2201) 4.2 G/DL CALC GLOBULIN (test code = 2240) 5.9 G/DL CALC A/G RATIO (test code = 2234) 0.7 RATIO BILIRUBIN, TOTAL (test code = 2207) 0.4 MG/DL ALKALINE PHOSPHATASE (test code = 2204) 102 U/L AST (test code = 2218) 31 U/L ALT (test code = 2219) 23 U/L HEPATITIS C REFLEX [id number] 00:00:00* Test Item Value Reference Range Interpretation Comme nts HEPATITIS C ANTIBODY (test c ode = 4675) NON-REACTIVE CBC W/AUTO [id number] 00:00:00* Test Item Value Reference Range Interpretation Comme nts WBC (test code = 1001) 3.3 K/UL [...] (test code = 1016) (NOTE) CBC W/AUTO [id number] 00:00:00* Test Item Value Reference Range Interpretation Comme nts WBC (test code = 1001) 3.3 K/UL [...] (test code = 1016) (NOTE) CBC W/AUTO [id number] 00:00:00* Test Item Value Reference Range Interpretation Comme nts WBC (test code = 1001) 3.3 K/UL [...] (test code = 1016) (NOTE) COMPREHENSIVE METABOLIC [id number] 00:00:00* Test Item Value Reference Range Interpretation Comme nts GLUCOSE (test code = 2217) 92 MG/DL BUN (test code = 2208) 23 MG/DL CREATININE (test code = 2214) 1.27 MG/DL eGFR AMER. (test cod e = 53246) 55 ML/MIN/1.73 eGFR NON- AMER. (test code = 46164) 48 ML/MIN/1.73 CALC BUN/CREAT (test code = 2235) 18 RATIO SODIUM (test code = 2231) 137 MEQ/L POTASSIUM (test code = 2228) 4.7 MEQ/L CHLORIDE (test code = 2215) 105 MEQ/L CARBON DIOXIDE (test code = 2206) 22 MEQ/L CALCIUM (test code = 2209) 9.4 MG/DL PROTEIN, TOTAL (test code = 2229) 10.1 G/DL ALBUMIN (test code = 2201) 4.2 G/DL CALC GLOBULIN (test code = 2240) 5.9 G/DL CALC A/G RATIO (test code = 2234) 0.7 RATIO BILIRUBIN, TOTAL (test code = 2207) 0.4 MG/DL ALKALINE PHOSPHATASE (test code = 2204) 102 U/L AST (test code = 2218) 31 U/L ALT (test code = 2219) 23 U/L COMPREHENSIVE METABOLIC [id number] 00:00:00* Test Item Value Reference Range Interpretation Comme nts GLUCOSE (test code = 2217) 92 MG/DL BUN (test code = 2208) 23 MG/DL CREATININE (test code = 2214) 1.27 MG/DL eGFR AMER. (test cod e = 93371) 55 ML/MIN/1.73 eGFR NON- AMER. (test code = 97773) 48 ML/MIN/1.73 CALC BUN/CREAT (test code = 2235) 18 RATIO SODIUM (test code = 2231) 137 MEQ/L POTASSIUM (test code = 2228) 4.7 MEQ/L CHLORIDE (test code = 2215) 105 MEQ/L CARBON DIOXIDE (test code = 2206) 22 MEQ/L CALCIUM (test code = 2209) 9.4 MG/DL PROTEIN, TOTAL (test code = 2229) 10.1 G/DL ALBUMIN (test code = 2201) 4.2 G/DL CALC GLOBULIN (test code = 2240) 5.9 G/DL CALC A/G RATIO (test code = 2234) 0.7 RATIO BILIRUBIN, TOTAL (test code = 2207) 0.4 MG/DL ALKALINE PHOSPHATASE (test code = 2204) 102 U/L AST (test code = 2218) 31 U/L ALT (test code = 2219) 23 U/L HEPATITIS C REFLEX [id number] 00:00:00* Test Item Value Reference Range Interpretation Comme nts HEPATITIS C ANTIBODY (test c ode = 4675) NON-REACTIVE HEPATITIS C REFLEX [id number] 00:00:00* Test Item Value Reference Range Interpretation Comme nts HEPATITIS C ANTIBODY (test c ode = 4675) NON-REACTIVE HEPATITIS C REFLEX [id number] 00:00:00* Test Item Value Reference Range Interpretation Comme nts HEPATITIS C ANTIBODY (test c ode = 4675) NON-REACTIVE Delfinosurinder OrtaCB W/AUTO [id number] 00:00:00* Test Item Value Reference Range Interpretation Comme nts WBC (test code = 1001) 3.3 K/UL [...] K/UL COMMENTS (test code = 1016) (NOTE) Delfino OrtaCOMPREHENSIVE METABOLIC [id number] 00:00:00* Test Item Value Reference Range Interpretation Comme nts GLUCOSE (test code = 2217) 92 MG/DL BUN (test code = 2208) 23 MG/DL CREATININE (test code = 2214) 1.27 MG/DL eGFR AMER. (test cod e = 89911) 55 ML/MIN/1.73 eGFR NON- AMER. (test code = 32632) 48 ML/MIN/1.73 CALC BUN/CREAT (test code = 2235) 18 RATIO SODIUM (test code = 2231) 137 MEQ/L POTASSIUM (test code = 2228) 4.7 MEQ/L CHLORIDE (test code = 2215) 105 MEQ/L CARBON DIOXIDE (test code = 2206) 22 MEQ/L CALCIUM (test code = 2209) 9.4 MG/DL PROTEIN, TOTAL (test code = 2229) 10.1 G/DL ALBUMIN (test code = 2201) 4.2 G/DL CALC GLOBULIN (test code = 2240) 5.9 G/DL CALC A/G RATIO (test code = 2234) 0.7 RATIO BILIRUBIN, TOTAL (test code = 2207) 0.4 MG/DL ALKALINE PHOSPHATASE (test code = 2204) 102 U/L AST (test code = 2218) 31 U/L ALT (test code = 2219) 23 U/L Delfino OrtaHEPATITIS C REFLEX [id number] 00:00:00* Test Item Value Reference Range Interpretation Comme nts HEPATITIS C ANTIBODY (test c ode = 4675) NON-REACTIVE Delfino Schumacher AustinCOMPREHENSIVE METABOLIC [id number] 00:00:00* Test Item Value Reference Range Interpretation Comme nts GLUCOSE (test code = 2217) 92 MG/DL BUN (test code = 2208) 23 MG/DL CREATININE (test code = 2214) 1.27 MG/DL eGFR AMER. (test cod e = 02718) 55 ML/MIN/1.73 eGFR NON- AMER. (test code = 10229) 48 ML/MIN/1.73 CALC BUN/CREAT (test code = 2235) 18 RATIO SODIUM (test code = 2231) 137 MEQ/L POTASSIUM (test code = 2228) 4.7 MEQ/L CHLORIDE (test code = 2215) 105 MEQ/L CARBON DIOXIDE (test code = 2206) 22 MEQ/L CALCIUM (test code = 2209) 9.4 MG/DL PROTEIN, TOTAL (test code = 2229) 10.1 G/DL ALBUMIN (test code = 2201) 4.2 G/DL CALC GLOBULIN (test code = 2240) 5.9 G/DL CALC A/G RATIO (test code = 2234) 0.7 RATIO BILIRUBIN, TOTAL (test code = 2207) 0.4 MG/DL ALKALINE PHOSPHATASE (test code = 2204) 102 U/L AST (test code = 2218) 31 U/L ALT (test code = 2219) 23 U/L Delfino OrtaHEPATITIS C REFLEX [id number] 00:00:00* Test Item Value Reference Range Interpretation Comme nts HEPATITIS C ANTIBODY (test c ode = 4675) NON-REACTIVE Delfino Schumacher YouCBC W/AUTO [id number] 00:00:00* Test Item Value Reference Range Interpretation Comme nts WBC (test code = 1001) 3.3 K/UL [...] K/UL COMMENTS (test code = 1016) (NOTE) Delfino OrtaCOMPREHENSIVE METABOLIC [id number] 00:00:00* Test Item Value Reference Range Interpretation Comme nts GLUCOSE (test code = 2217) 92 MG/DL BUN (test code = 2208) 23 MG/DL CREATININE (test code = 2214) 1.27 MG/DL eGFR AMER. (test cod e = 52197) 55 ML/MIN/1.73 eGFR NON- AMER. (test code = 71917) 48 ML/MIN/1.73 CALC BUN/CREAT (test code = 2235) 18 RATIO SODIUM (test code = 2231) 137 MEQ/L POTASSIUM (test code = 2228) 4.7 MEQ/L CHLORIDE (test code = 2215) 105 MEQ/L CARBON DIOXIDE (test code = 2206) 22 MEQ/L CALCIUM (test code = 2209) 9.4 MG/DL PROTEIN, TOTAL (test code = 2229) 10.1 G/DL ALBUMIN (test code = 2201) 4.2 G/DL CALC GLOBULIN (test code = 2240) 5.9 G/DL CALC A/G RATIO (test code = 2234) 0.7 RATIO BILIRUBIN, TOTAL (test code = 2207) 0.4 MG/DL ALKALINE PHOSPHATASE (test code = 2204) 102 U/L AST (test code = 2218) 31 U/L ALT (test code = 2219) 23 U/L Delfino Schumacher YouHEPATITIS C REFLEX [id number] 00:00:00* Test Item Value Reference Range Interpretation Comme nts HEPATITIS C ANTIBODY (test c ode = 4675) NON-REACTIVE Delfino Schumacher YouCBC W/AUTO [id number] 00:00:00* Test Item Value Reference Range Interpretation Comme nts WBC (test code = 1001) 3.3 K/UL [...] K/UL COMMENTS (test code = 1016) (NOTE) Delfino OrtaCOMPREHENSIVE METABOLIC [id number] 00:00:00* Test Item Value Reference Range Interpretation Comme nts GLUCOSE (test code = 2217) 92 MG/DL BUN (test code = 2208) 23 MG/DL CREATININE (test code = 2214) 1.27 MG/DL eGFR AMER. (test cod e = 55646) 55 ML/MIN/1.73 eGFR NON- AMER. (test code = 21813) 48 ML/MIN/1.73 CALC BUN/CREAT (test code = 2235) 18 RATIO SODIUM (test code = 2231) 137 MEQ/L POTASSIUM (test code = 2228) 4.7 MEQ/L CHLORIDE (test code = 2215) 105 MEQ/L CARBON DIOXIDE (test code = 2206) 22 MEQ/L CALCIUM (test code = 2209) 9.4 MG/DL PROTEIN, TOTAL (test code = 2229) 10.1 G/DL ALBUMIN (test code = 2201) 4.2 G/DL CALC GLOBULIN (test code = 2240) 5.9 G/DL CALC A/G RATIO (test code = 2234) 0.7 RATIO BILIRUBIN, TOTAL (test code = 2207) 0.4 MG/DL ALKALINE PHOSPHATASE (test code = 2204) 102 U/L AST (test code = 2218) 31 U/L ALT (test code = 2219) 23 U/L Delfino OrtaHEPATITIS C REFLEX [id number] 00:00:00* Test Item Value Reference Range Interpretation Comme nts HEPATITIS C ANTIBODY (test c ode = 4675) NON-REACTIVE Delfino OrtaCBC W/AUTO [id number] 00:00:00* Test Item Value Reference Range Interpretation Comme nts WBC (test code = 1001) 3.3 K/UL [...] K/UL COMMENTS (test code = 1016) (NOTE) Delfino OrtaCOMPREHENSIVE METABOLIC [id number] 00:00:00* Test Item Value Reference Range Interpretation Comme nts GLUCOSE (test code = 2217) 92 MG/DL BUN (test code = 2208) 23 MG/DL CREATININE (test code = 2214) 1.27 MG/DL eGFR AMER. (test cod e = 21593) 55 ML/MIN/1.73 eGFR NON- AMER. (test code = 99516) 48 ML/MIN/1.73 CALC BUN/CREAT (test code = 2235) 18 RATIO SODIUM (test code = 2231) 137 MEQ/L POTASSIUM (test code = 2228) 4.7 MEQ/L CHLORIDE (test code = 2215) 105 MEQ/L CARBON DIOXIDE (test code = 2206) 22 MEQ/L CALCIUM (test code = 2209) 9.4 MG/DL PROTEIN, TOTAL (test code = 2229) 10.1 G/DL ALBUMIN (test code = 2201) 4.2 G/DL CALC GLOBULIN (test code = 2240) 5.9 G/DL CALC A/G RATIO (test code = 2234) 0.7 RATIO BILIRUBIN, TOTAL (test code = 2207) 0.4 MG/DL ALKALINE PHOSPHATASE (test code = 2204) 102 U/L AST (test code = 2218) 31 U/L ALT (test code = 2219) 23 U/L Delfino OrtaHEPATITIS C REFLEX [id number] 00:00:00* Test Item Value Reference Range Interpretation Comme nts HEPATITIS C ANTIBODY (test c ode = 4675) NON-REACTIVE Delfino OrtaCBC W/AUTO [id number] 00:00:00* Test Item Value Reference Range Interpretation Comme nts WBC (test code = 1001) 3.3 K/UL [...] K/UL COMMENTS (test code = 1016) (NOTE) Delfino OrtaCOMPREHENSIVE METABOLIC [id number] 00:00:00* Test Item Value Reference Range Interpretation Comme nts GLUCOSE (test code = 2217) 92 MG/DL BUN (test code = 2208) 23 MG/DL CREATININE (test code = 2214) 1.27 MG/DL eGFR AMER. (test cod e = 23232) 55 ML/MIN/1.73 eGFR NON- AMER. (test code = 85946) 48 ML/MIN/1.73 CALC BUN/CREAT (test code = 2235) 18 RATIO SODIUM (test code = 2231) 137 MEQ/L POTASSIUM (test code = 2228) 4.7 MEQ/L CHLORIDE (test code = 2215) 105 MEQ/L CARBON DIOXIDE (test code = 2206) 22 MEQ/L CALCIUM (test code = 2209) 9.4 MG/DL PROTEIN, TOTAL (test code = 2229) 10.1 G/DL ALBUMIN (test code = 2201) 4.2 G/DL CALC GLOBULIN (test code = 2240) 5.9 G/DL CALC A/G RATIO (test code = 2234) 0.7 RATIO BILIRUBIN, TOTAL (test code = 2207) 0.4 MG/DL ALKALINE PHOSPHATASE (test code = 2204) 102 U/L AST (test code = 2218) 31 U/L ALT (test code = 2219) 23 U/L Delfino F AustinHEPATITIS C REFLEX [id number] 00:00:00* Test Item Value Reference Range Interpretation Comme nts HEPATITIS C ANTIBODY (test c ode = 4637) NON-REACTIVE Delfino OrtaCBC W/AUTO [id number] 00:00:00* Test Item Value Reference Range Interpretation Comme nts WBC (test code = 1001) 3.3 K/UL [...] K/UL COMMENTS (test code = 1016) (NOTE) Delfino OrtaCOMPREHENSIVE METABOLIC [id number] 00:00:00* Test Item Value Reference Range Interpretation Comme nts GLUCOSE (test code = 2217) 88 MG/DL BUN (test code = 2208) 24 MG/DL CREATININE (test code = 2214) 0.94 MG/DL eGFR AMER. (test cod e = 44392) 80 ML/MIN/1.73 eGFR NON- AMER. (test code = 72656) 69 ML/MIN/1.73 CALC BUN/CREAT (test code = 2235) 26 RATIO SODIUM (test code = 2231) 142 MEQ/L POTASSIUM (test code = 2228) 4.0 MEQ/L CHLORIDE (test code = 2215) 107 MEQ/L CARBON DIOXIDE (test code = 2206) 24 MEQ/L CALCIUM (test code = 2209) 9.5 MG/DL PROTEIN, TOTAL (test code = 2229) 9.9 G/DL ALBUMIN (test code = 2201) 3.7 G/DL CALC GLOBULIN (test code = 2240) 6.2 G/DL CALC A/G RATIO (test code = 2234) 0.6 RATIO BILIRUBIN, TOTAL (test code = 2207) 0.3 MG/DL ALKALINE PHOSPHATASE (test code = 2204) 89 U/L AST (test code = 2218) 18 U/L ALT (test code = 2219) 10 U/L Delfino OrtaLIPID [id number] 00:00:00* Test Item Value Reference Range Interpretation Comme nts CHOLESTEROL (test code = 2210) 211 MG/DL TRIGLYCERIDES (test code = 2232) 52 MG/DL HDL CHOLESTEROL (test code = 2220) 90 MG/DL CALC LDL CHOL (test code = 2237) 111 MG/DL RISK RATIO LDL/HDL (test cod e = 2238) 1.23 RATIO [facility] [id number] 00:00:00* Test Item Value Reference Range Interpretation Comme nts WBC (test code = 1001) 3.6 K/UL [...] K/UL COMMENTS (test code = 1016) (NOTE) Delfino OrtaC W/AUTO [id number] 00:00:00* Test Item Value Reference Range Interpretation Comme nts WBC (test code = 1001) 3.6 K/UL [...] (test code = 1016) (NOTE) CBC W/AUTO [id number] 00:00:00* Test Item Value Reference Range Interpretation Comme nts WBC (test code = 1001) 3.6 K/UL [...] (test code = 1016) (NOTE) CBC W/AUTO [id number] 00:00:00* Test Item Value Reference Range Interpretation Comme nts WBC (test code = 1001) 3.6 K/UL [...] (test code = 1016) (NOTE) COMPREHENSIVE METABOLIC [id number] 00:00:00* Test Item Value Reference Range Interpretation Comme nts GLUCOSE (test code = 2217) 88 MG/DL BUN (test code = 2208) 24 MG/DL CREATININE (test code = 2214) 0.94 MG/DL eGFR AMER. (test cod e = 54978) 80 ML/MIN/1.73 eGFR NON- AMER. (test code = 99630) 69 ML/MIN/1.73 CALC BUN/CREAT (test code = 2235) 26 RATIO SODIUM (test code = 2231) 142 MEQ/L POTASSIUM (test code = 2228) 4.0 MEQ/L CHLORIDE (test code = 2215) 107 MEQ/L CARBON DIOXIDE (test code = 2206) 24 MEQ/L CALCIUM (test code = 2209) 9.5 MG/DL PROTEIN, TOTAL (test code = 2229) 9.9 G/DL ALBUMIN (test code = 2201) 3.7 G/DL CALC GLOBULIN (test code = 2240) 6.2 G/DL CALC A/G RATIO (test code = 2234) 0.6 RATIO BILIRUBIN, TOTAL (test code = 2207) 0.3 MG/DL ALKALINE PHOSPHATASE (test code = 2204) 89 U/L AST (test code = 2218) 18 U/L ALT (test code = 2219) 10 U/L COMPREHENSIVE METABOLIC [id number] 00:00:00* Test Item Value Reference Range Interpretation Comme nts GLUCOSE (test code = 2217) 88 MG/DL BUN (test code = 2208) 24 MG/DL CREATININE (test code = 2214) 0.94 MG/DL eGFR AMER. (test cod e = 65129) 80 ML/MIN/1.73 eGFR NON- AMER. (test code = 30138) 69 ML/MIN/1.73 CALC BUN/CREAT (test code = 2235) 26 RATIO SODIUM (test code = 2231) 142 MEQ/L POTASSIUM (test code = 2228) 4.0 MEQ/L CHLORIDE (test code = 2215) 107 MEQ/L CARBON DIOXIDE (test code = 2206) 24 MEQ/L CALCIUM (test code = 2209) 9.5 MG/DL PROTEIN, TOTAL (test code = 2229) 9.9 G/DL ALBUMIN (test code = 2201) 3.7 G/DL CALC GLOBULIN (test code = 2240) 6.2 G/DL CALC A/G RATIO (test code = 2234) 0.6 RATIO BILIRUBIN, TOTAL (test code = 2207) 0.3 MG/DL ALKALINE PHOSPHATASE (test code = 2204) 89 U/L AST (test code = 2218) 18 U/L ALT (test code = 2219) 10 U/L LIPID [id number] 00:00:00* Test Item Value Reference Range Interpretation Comme nts CHOLESTEROL (test code = 2210) 211 MG/DL TRIGLYCERIDES (test code = 2232) 52 MG/DL HDL CHOLESTEROL (test code = 2220) 90 MG/DL CALC LDL CHOL (test code = 2237) 111 MG/DL RISK RATIO LDL/HDL (test cod e = 2238) 1.23 RATIO LIPID [id number] 00:00:00* Test Item Value Reference Range Interpretation Comme nts CHOLESTEROL (test code = 2210) 211 MG/DL TRIGLYCERIDES (test code = 2232) 52 MG/DL HDL CHOLESTEROL (test code = 2220) 90 MG/DL CALC LDL CHOL (test code = 2237) 111 MG/DL RISK RATIO LDL/HDL (test cod e = 2238) 1.23 RATIO CBC W/AUTO [id number] 00:00:00* Test Item Value Reference Range Interpretation Comme nts WBC (test code = 1001) 3.6 K/UL [...] (test code = 1016) (NOTE) CBC W/AUTO [id number] 00:00:00* Test Item Value Reference Range Interpretation Comme nts WBC (test code = 1001) 3.6 K/UL [...] (test code = 1016) (NOTE) CBC W/AUTO [id number] 00:00:00* Test Item Value Reference Range Interpretation Comme nts WBC (test code = 1001) 3.6 K/UL [...] (test code = 1016) (NOTE) COMPREHENSIVE METABOLIC [id number] 00:00:00* Test Item Value Reference Range Interpretation Comme nts GLUCOSE (test code = 2217) 88 MG/DL BUN (test code = 2208) 24 MG/DL CREATININE (test code = 2214) 0.94 MG/DL eGFR AMER. (test cod e = 58485) 80 ML/MIN/1.73 eGFR NON- AMER. (test code = 88435) 69 ML/MIN/1.73 CALC BUN/CREAT (test code = 2235) 26 RATIO SODIUM (test code = 2231) 142 MEQ/L POTASSIUM (test code = 2228) 4.0 MEQ/L CHLORIDE (test code = 2215) 107 MEQ/L CARBON DIOXIDE (test code = 2206) 24 MEQ/L CALCIUM (test code = 2209) 9.5 MG/DL PROTEIN, TOTAL (test code = 2229) 9.9 G/DL ALBUMIN (test code = 2201) 3.7 G/DL CALC GLOBULIN (test code = 2240) 6.2 G/DL CALC A/G RATIO (test code = 2234) 0.6 RATIO BILIRUBIN, TOTAL (test code = 2207) 0.3 MG/DL ALKALINE PHOSPHATASE (test code = 2204) 89 U/L AST (test code = 2218) 18 U/L ALT (test code = 2219) 10 U/L COMPREHENSIVE METABOLIC [id number] 00:00:00* Test Item Value Reference Range Interpretation Comme nts GLUCOSE (test code = 2217) 88 MG/DL BUN (test code = 2208) 24 MG/DL CREATININE (test code = 2214) 0.94 MG/DL eGFR AMER. (test cod e = 30120) 80 ML/MIN/1.73 eGFR NON- AMER. (test code = 25639) 69 ML/MIN/1.73 CALC BUN/CREAT (test code = 2235) 26 RATIO SODIUM (test code = 2231) 142 MEQ/L POTASSIUM (test code = 2228) 4.0 MEQ/L CHLORIDE (test code = 2215) 107 MEQ/L CARBON DIOXIDE (test code = 2206) 24 MEQ/L CALCIUM (test code = 2209) 9.5 MG/DL PROTEIN, TOTAL (test code = 2229) 9.9 G/DL ALBUMIN (test code = 2201) 3.7 G/DL CALC GLOBULIN (test code = 2240) 6.2 G/DL CALC A/G RATIO (test code = 2234) 0.6 RATIO BILIRUBIN, TOTAL (test code = 2207) 0.3 MG/DL ALKALINE PHOSPHATASE (test code = 2204) 89 U/L AST (test code = 2218) 18 U/L ALT (test code = 2219) 10 U/L LIPID [id number] 00:00:00* Test Item Value Reference Range Interpretation Comme nts CHOLESTEROL (test code = 2210) 211 MG/DL TRIGLYCERIDES (test code = 2232) 52 MG/DL HDL CHOLESTEROL (test code = 2220) 90 MG/DL CALC LDL CHOL (test code = 2237) 111 MG/DL RISK RATIO LDL/HDL (test cod e = 2238) 1.23 RATIO LIPID [id number] 00:00:00* Test Item Value Reference Range Interpretation Comme nts CHOLESTEROL (test code = 2210) 211 MG/DL TRIGLYCERIDES (test code = 2232) 52 MG/DL HDL CHOLESTEROL (test code = 2220) 90 MG/DL CALC LDL CHOL (test code = 2237) 111 MG/DL RISK RATIO LDL/HDL (test cod e = 2238) 1.23 RATIO CBC W/AUTO [id number] 00:00:00* Test Item Value Reference Range Interpretation Comme nts WBC (test code = 1001) 3.6 K/UL [...] (test code = 1016) (NOTE) CBC W/AUTO [id number] 00:00:00* Test Item Value Reference Range Interpretation Comme nts WBC (test code = 1001) 3.6 K/UL [...] (test code = 1016) (NOTE) COMPREHENSIVE METABOLIC [id number] 00:00:00* Test Item Value Reference Range Interpretation Comme nts GLUCOSE (test code = 2217) 88 MG/DL BUN (test code = 2208) 24 MG/DL CREATININE (test code = 2214) 0.94 MG/DL eGFR AMER. (test cod e = 56155) 80 ML/MIN/1.73 eGFR NON- AMER. (test code = 50894) 69 ML/MIN/1.73 CALC BUN/CREAT (test code = 2235) 26 RATIO SODIUM (test code = 2231) 142 MEQ/L POTASSIUM (test code = 2228) 4.0 MEQ/L CHLORIDE (test code = 2215) 107 MEQ/L CARBON DIOXIDE (test code = 2206) 24 MEQ/L CALCIUM (test code = 2209) 9.5 MG/DL PROTEIN, TOTAL (test code = 2229) 9.9 G/DL ALBUMIN (test code = 2201) 3.7 G/DL CALC GLOBULIN (test code = 2240) 6.2 G/DL CALC A/G RATIO (test code = 2234) 0.6 RATIO BILIRUBIN, TOTAL (test code = 2207) 0.3 MG/DL ALKALINE PHOSPHATASE (test code = 2204) 89 U/L AST (test code = 2218) 18 U/L ALT (test code = 2219) 10 U/L LIPID [id number] 00:00:00* Test Item Value Reference Range Interpretation Comme nts CHOLESTEROL (test code = 2210) 211 MG/DL TRIGLYCERIDES (test code = 2232) 52 MG/DL HDL CHOLESTEROL (test code = 2220) 90 MG/DL CALC LDL CHOL (test code = 2237) 111 MG/DL RISK RATIO LDL/HDL (test cod e = 2238) 1.23 RATIO CBC W/AUTO [id number] 00:00:00* Test Item Value Reference Range Interpretation Comme nts WBC (test code = 1001) 3.6 K/UL [...] (test code = 1016) (NOTE) CBC W/AUTO [id number] 00:00:00* Test Item Value Reference Range Interpretation Comme nts WBC (test code = 1001) 3.6 K/UL [...] (test code = 1016) (NOTE) CBC W/AUTO [id number] 00:00:00* Test Item Value Reference Range Interpretation Comme nts WBC (test code = 1001) 3.6 K/UL [...] (test code = 1016) (NOTE) COMPREHENSIVE METABOLIC [id number] 00:00:00* Test Item Value Reference Range Interpretation Comme nts GLUCOSE (test code = 2217) 88 MG/DL BUN (test code = 2208) 24 MG/DL CREATININE (test code = 2214) 0.94 MG/DL eGFR AMER. (test cod e = 12557) 80 ML/MIN/1.73 eGFR NON- AMER. (test code = 93290) 69 ML/MIN/1.73 CALC BUN/CREAT (test code = 2235) 26 RATIO SODIUM (test code = 2231) 142 MEQ/L POTASSIUM (test code = 2228) 4.0 MEQ/L CHLORIDE (test code = 2215) 107 MEQ/L CARBON DIOXIDE (test code = 2206) 24 MEQ/L CALCIUM (test code = 2209) 9.5 MG/DL PROTEIN, TOTAL (test code = 2229) 9.9 G/DL ALBUMIN (test code = 2201) 3.7 G/DL CALC GLOBULIN (test code = 2240) 6.2 G/DL CALC A/G RATIO (test code = 2234) 0.6 RATIO BILIRUBIN, TOTAL (test code = 2207) 0.3 MG/DL ALKALINE PHOSPHATASE (test code = 2204) 89 U/L AST (test code = 2218) 18 U/L ALT (test code = 2219) 10 U/L COMPREHENSIVE METABOLIC [id number] 00:00:00* Test Item Value Reference Range Interpretation Comme nts GLUCOSE (test code = 2217) 88 MG/DL BUN (test code = 2208) 24 MG/DL CREATININE (test code = 2214) 0.94 MG/DL eGFR AMER. (test cod e = 02635) 80 ML/MIN/1.73 eGFR NON- AMER. (test code = 87462) 69 ML/MIN/1.73 CALC BUN/CREAT (test code = 2235) 26 RATIO SODIUM (test code = 2231) 142 MEQ/L POTASSIUM (test code = 2228) 4.0 MEQ/L CHLORIDE (test code = 2215) 107 MEQ/L CARBON DIOXIDE (test code = 2206) 24 MEQ/L CALCIUM (test code = 2209) 9.5 MG/DL PROTEIN, TOTAL (test code = 2229) 9.9 G/DL ALBUMIN (test code = 2201) 3.7 G/DL CALC GLOBULIN (test code = 2240) 6.2 G/DL CALC A/G RATIO (test code = 2234) 0.6 RATIO BILIRUBIN, TOTAL (test code = 2207) 0.3 MG/DL ALKALINE PHOSPHATASE (test code = 2204) 89 U/L AST (test code = 2218) 18 U/L ALT (test code = 2219) 10 U/L LIPID [id number] 00:00:00* Test Item Value Reference Range Interpretation Comme nts CHOLESTEROL (test code = 2210) 211 MG/DL TRIGLYCERIDES (test code = 2232) 52 MG/DL HDL CHOLESTEROL (test code = 2220) 90 MG/DL CALC LDL CHOL (test code = 2237) 111 MG/DL RISK RATIO LDL/HDL (test cod e = 2238) 1.23 RATIO LIPID [id number] 00:00:00* Test Item Value Reference Range Interpretation Comme nts CHOLESTEROL (test code = 2210) 211 MG/DL TRIGLYCERIDES (test code = 2232) 52 MG/DL HDL CHOLESTEROL (test code = 2220) 90 MG/DL CALC LDL CHOL (test code = 2237) 111 MG/DL RISK RATIO LDL/HDL (test cod e = 2238) 1.23 RATIO COMPREHENSIVE METABOLIC [id number] 00:00:00* Test Item Value Reference Range Interpretation Comme nts GLUCOSE (test code = 2217) 88 MG/DL BUN (test code = 2208) 24 MG/DL CREATININE (test code = 2214) 0.94 MG/DL eGFR AMER. (test cod e = 20376) 80 ML/MIN/1.73 eGFR NON- AMER. (test code = 41404) 69 ML/MIN/1.73 CALC BUN/CREAT (test code = 2235) 26 RATIO SODIUM (test code = 2231) 142 MEQ/L POTASSIUM (test code = 2228) 4.0 MEQ/L CHLORIDE (test code = 2215) 107 MEQ/L CARBON DIOXIDE (test code = 2206) 24 MEQ/L CALCIUM (test code = 2209) 9.5 MG/DL PROTEIN, TOTAL (test code = 2229) 9.9 G/DL ALBUMIN (test code = 2201) 3.7 G/DL CALC GLOBULIN (test code = 2240) 6.2 G/DL CALC A/G RATIO (test code = 2234) 0.6 RATIO BILIRUBIN, TOTAL (test code = 2207) 0.3 MG/DL ALKALINE PHOSPHATASE (test code = 2204) 89 U/L AST (test code = 2218) 18 U/L ALT (test code = 2219) 10 U/L Delfino OrtaLIPID [id number] 00:00:00* Test Item Value Reference Range Interpretation Comme nts CHOLESTEROL (test code = 2210) 211 MG/DL TRIGLYCERIDES (test code = 2232) 52 MG/DL HDL CHOLESTEROL (test code = 2220) 90 MG/DL CALC LDL CHOL (test code = 2237) 111 MG/DL RISK RATIO LDL/HDL (test cod e = 2238) 1.23 RATIO Delfino OrtaCBC W/AUTO [id number] 00:00:00* Test Item Value Reference Range Interpretation Comme nts WBC (test code = 1001) 3.6 K/UL [...] K/UL COMMENTS (test code = 1016) (NOTE) Delfino OrtaCBC W/AUTO [id number] 00:00:00* Test Item Value Reference Range Interpretation Comme nts WBC (test code = 1001) 3.6 K/UL [...] K/UL COMMENTS (test code = 1016) (NOTE) Delfino OrtaCOMPREHENSIVE METABOLIC [id number] 00:00:00* Test Item Value Reference Range Interpretation Comme nts GLUCOSE (test code = 2217) 88 MG/DL BUN (test code = 2208) 24 MG/DL CREATININE (test code = 2214) 0.94 MG/DL eGFR AMER. (test cod e = 75225) 80 ML/MIN/1.73 eGFR NON- AMER. (test code = 93501) 69 ML/MIN/1.73 CALC BUN/CREAT (test code = 2235) 26 RATIO SODIUM (test code = 2231) 142 MEQ/L POTASSIUM (test code = 2228) 4.0 MEQ/L CHLORIDE (test code = 2215) 107 MEQ/L CARBON DIOXIDE (test code = 2206) 24 MEQ/L CALCIUM (test code = 2209) 9.5 MG/DL PROTEIN, TOTAL (test code = 2229) 9.9 G/DL ALBUMIN (test code = 2201) 3.7 G/DL CALC GLOBULIN (test code = 2240) 6.2 G/DL CALC A/G RATIO (test code = 2234) 0.6 RATIO BILIRUBIN, TOTAL (test code = 2207) 0.3 MG/DL ALKALINE PHOSPHATASE (test code = 2204) 89 U/L AST (test code = 2218) 18 U/L ALT (test code = 2219) 10 U/L Delfino Schumacher [place] [id number] 00:00:00* Test Item Value Reference Range Interpretation Comme nts CHOLESTEROL (test code = 2210) 211 MG/DL TRIGLYCERIDES (test code = 2232) 52 MG/DL HDL CHOLESTEROL (test code = 2220) 90 MG/DL CALC LDL CHOL (test code = 2237) 111 MG/DL RISK RATIO LDL/HDL (test cod e = 2238) 1.23 RATIO Delfino OrtaCOMPREHENSIVE METABOLIC [id number] 00:00:00* Test Item Value Reference Range Interpretation Comme nts GLUCOSE (test code = 2217) 88 MG/DL BUN (test code = 2208) 24 MG/DL CREATININE (test code = 2214) 0.94 MG/DL eGFR AMER. (test cod e = 49214) 80 ML/MIN/1.73 eGFR NON- AMER. (test code = 59837) 69 ML/MIN/1.73 CALC BUN/CREAT (test code = 2235) 26 RATIO SODIUM (test code = 2231) 142 MEQ/L POTASSIUM (test code = 2228) 4.0 MEQ/L CHLORIDE (test code = 2215) 107 MEQ/L CARBON DIOXIDE (test code = 2206) 24 MEQ/L CALCIUM (test code = 2209) 9.5 MG/DL PROTEIN, TOTAL (test code = 2229) 9.9 G/DL ALBUMIN (test code = 2201) 3.7 G/DL CALC GLOBULIN (test code = 2240) 6.2 G/DL CALC A/G RATIO (test code = 2234) 0.6 RATIO BILIRUBIN, TOTAL (test code = 2207) 0.3 MG/DL ALKALINE PHOSPHATASE (test code = 2204) 89 U/L AST (test code = 2218) 18 U/L ALT (test code = 2219) 10 U/L Delfino Schumacher [place] [id number] 00:00:00* Test Item Value Reference Range Interpretation Comme nts CHOLESTEROL (test code = 2210) 211 MG/DL TRIGLYCERIDES (test code = 2232) 52 MG/DL HDL CHOLESTEROL (test code = 2220) 90 MG/DL CALC LDL CHOL (test code = 2237) 111 MG/DL RISK RATIO LDL/HDL (test cod e = 2238) 1.23 RATIO Delfino Schumacher YouCBC W/AUTO [id number] 00:00:00* Test Item Value Reference Range Interpretation Comme nts WBC (test code = 1001) 3.6 K/UL [...] K/UL COMMENTS (test code = 1016) (NOTE) Delfino Schumacher YouCOMPREHENSIVE METABOLIC [id number] 00:00:00* Test Item Value Reference Range Interpretation Comme nts GLUCOSE (test code = 2217) 88 MG/DL BUN (test code = 2208) 24 MG/DL CREATININE (test code = 2214) 0.94 MG/DL eGFR AMER. (test cod e = 62709) 80 ML/MIN/1.73 eGFR NON- AMER. (test code = 59941) 69 ML/MIN/1.73 CALC BUN/CREAT (test code = 2235) 26 RATIO SODIUM (test code = 2231) 142 MEQ/L POTASSIUM (test code = 2228) 4.0 MEQ/L CHLORIDE (test code = 2215) 107 MEQ/L CARBON DIOXIDE (test code = 2206) 24 MEQ/L CALCIUM (test code = 2209) 9.5 MG/DL PROTEIN, TOTAL (test code = 2229) 9.9 G/DL ALBUMIN (test code = 2201) 3.7 G/DL CALC GLOBULIN (test code = 2240) 6.2 G/DL CALC A/G RATIO (test code = 2234) 0.6 RATIO BILIRUBIN, TOTAL (test code = 2207) 0.3 MG/DL ALKALINE PHOSPHATASE (test code = 2204) 89 U/L AST (test code = 2218) 18 U/L ALT (test code = 2219) 10 U/L Delfino OrtaLIPID [id number] 00:00:00* Test Item Value Reference Range Interpretation Comme nts CHOLESTEROL (test code = 2210) 211 MG/DL TRIGLYCERIDES (test code = 2232) 52 MG/DL HDL CHOLESTEROL (test code = 2220) 90 MG/DL CALC LDL CHOL (test code = 2237) 111 MG/DL RISK RATIO LDL/HDL (test cod e = 2238) 1.23 RATIO Delfino OrtaCBC W/AUTO [id number] 00:00:00* Test Item Value Reference Range Interpretation Comme nts WBC (test code = 1001) 3.6 K/UL [...] K/UL COMMENTS (test code = 1016) (NOTE) Delfino OrtaCOMPREHENSIVE METABOLIC [id number] 00:00:00* Test Item Value Reference Range Interpretation Comme nts GLUCOSE (test code = 2217) 88 MG/DL BUN (test code = 2208) 24 MG/DL CREATININE (test code = 2214) 0.94 MG/DL eGFR AMER. (test cod e = 54726) 80 ML/MIN/1.73 eGFR NON- AMER. (test code = 46717) 69 ML/MIN/1.73 CALC BUN/CREAT (test code = 2235) 26 RATIO SODIUM (test code = 2231) 142 MEQ/L POTASSIUM (test code = 2228) 4.0 MEQ/L CHLORIDE (test code = 2215) 107 MEQ/L CARBON DIOXIDE (test code = 2206) 24 MEQ/L CALCIUM (test code = 2209) 9.5 MG/DL PROTEIN, TOTAL (test code = 2229) 9.9 G/DL ALBUMIN (test code = 2201) 3.7 G/DL CALC GLOBULIN (test code = 2240) 6.2 G/DL CALC A/G RATIO (test code = 2234) 0.6 RATIO BILIRUBIN, TOTAL (test code = 2207) 0.3 MG/DL ALKALINE PHOSPHATASE (test code = 2204) 89 U/L AST (test code = 2218) 18 U/L ALT (test code = 2219) 10 U/L Delfino Schumacher [place] [id number] 00:00:00* Test Item Value Reference Range Interpretation Comme nts CHOLESTEROL (test code = 2210) 211 MG/DL TRIGLYCERIDES (test code = 2232) 52 MG/DL HDL CHOLESTEROL (test code = 2220) 90 MG/DL CALC LDL CHOL (test code = 2237) 111 MG/DL RISK RATIO LDL/HDL (test cod e = 2238) 1.23 RATIO [facility] [id number] 00:00:00* Test Item Value Reference Range Interpretation Comme nts WBC (test code = 1001) 3.6 K/UL [...] K/UL COMMENTS (test code = 1016) (NOTE) Delfino OrtaCOMPREHENSIVE METABOLIC [id number] 00:00:00* Test Item Value Reference Range Interpretation Comme nts GLUCOSE (test code = 2217) 88 MG/DL BUN (test code = 2208) 24 MG/DL CREATININE (test code = 2214) 0.94 MG/DL eGFR AMER. (test cod e = 77089) 80 ML/MIN/1.73 eGFR NON- AMER. (test code = 72766) 69 ML/MIN/1.73 CALC BUN/CREAT (test code = 2235) 26 RATIO SODIUM (test code = 2231) 142 MEQ/L POTASSIUM (test code = 2228) 4.0 MEQ/L CHLORIDE (test code = 2215) 107 MEQ/L CARBON DIOXIDE (test code = 2206) 24 MEQ/L CALCIUM (test code = 2209) 9.5 MG/DL PROTEIN, TOTAL (test code = 2229) 9.9 G/DL ALBUMIN (test code = 2201) 3.7 G/DL CALC GLOBULIN (test code = 2240) 6.2 G/DL CALC A/G RATIO (test code = 2234) 0.6 RATIO BILIRUBIN, TOTAL (test code = 2207) 0.3 MG/DL ALKALINE PHOSPHATASE (test code = 2204) 89 U/L AST (test code = 2218) 18 U/L ALT (test code = 2219) 10 U/L Delfino OrtaLIPID [id number] 00:00:00* Test Item Value Reference Range Interpretation Comme nts CHOLESTEROL (test code = 2210) 211 MG/DL TRIGLYCERIDES (test code = 2232) 52 MG/DL HDL CHOLESTEROL (test code = 2220) 90 MG/DL CALC LDL CHOL (test code = 2237) 111 MG/DL RISK RATIO LDL/HDL (test cod e = 2238) 1.23 RATIO Delfino OrtaCBC W/AUTO [id number] 00:00:00* Test Item Value Reference Range Interpretation Comme nts WBC (test code = 1001) 3.6 K/UL [...] K/UL COMMENTS (test code = 1016) (NOTE) Delfino OrtaCOMPREHENSIVE METABOLIC [id number] 00:00:00* Test Item Value Reference Range Interpretation Comme nts GLUCOSE (test code = 2217) 88 MG/DL BUN (test code = 2208) 24 MG/DL CREATININE (test code = 2214) 0.94 MG/DL eGFR AMER. (test cod e = 94041) 80 ML/MIN/1.73 eGFR NON- AMER. (test code = 37417) 69 ML/MIN/1.73 CALC BUN/CREAT (test code = 2235) 26 RATIO SODIUM (test code = 2231) 142 MEQ/L POTASSIUM (test code = 2228) 4.0 MEQ/L CHLORIDE (test code = 2215) 107 MEQ/L CARBON DIOXIDE (test code = 2206) 24 MEQ/L CALCIUM (test code = 2209) 9.5 MG/DL PROTEIN, TOTAL (test code = 2229) 9.9 G/DL ALBUMIN (test code = 2201) 3.7 G/DL CALC GLOBULIN (test code = 2240) 6.2 G/DL CALC A/G RATIO (test code = 2234) 0.6 RATIO BILIRUBIN, TOTAL (test code = 2207) 0.3 MG/DL ALKALINE PHOSPHATASE (test code = 2204) 89 U/L AST (test code = 2218) 18 U/L ALT (test code = 2219) 10 U/L Delfino OrtaLIPID [id number] 00:00:00* Test Item Value Reference Range Interpretation Comme nts CHOLESTEROL (test code = 2210) 211 MG/DL TRIGLYCERIDES (test code = 2232) 52 MG/DL HDL CHOLESTEROL (test code = 2220) 90 MG/DL CALC LDL CHOL (test code = 2237) 111 MG/DL RISK RATIO LDL/HDL (test cod e = 2238) 1.23 RATIO Delfino OrtaCBC W/AUTO [id number] 00:00:00* Test Item Value Reference Range Interpretation Comme nts WBC (test code = 1001) 3.6 K/UL [...] K/UL COMMENTS (test code = 1016) (NOTE) Delfino Schumacher [place] [id number] 00:00:00* Test Item Value Reference Range Interpretation Comme nts URIC ACID (test code = 2233) 7.5 MG/DL Delfino OrtaVITAMIN D, 25 [id number] 00:00:00* Test Item Value Reference Range Interpretation Comme nts VITAMIN D, 25 OH (test code = 4958) 36 NG/ML Delfino Schumacher [place] [id number] 00:00:00* Test Item Value Reference Range Interpretation Comme nts URIC ACID (test code = 2233) 7.5 MG/DL Delfino Schumacher [place] [id number] 00:00:00* Test Item Value Reference Range Interpretation Comme nts URIC ACID (test code = 2233) 7.5 MG/DL Delfino Schumacher [place] [id number] 00:00:00* Test Item Value Reference Range Interpretation Comme nts URIC ACID (test code = 2233) 7.5 MG/DL URIC [id number] 00:00:00* Test Item Value Reference Range Interpretation Comme nts URIC ACID (test code = 2233) 7.5 MG/DL VITAMIN D, 25 [id number] 00:00:00* Test Item Value Reference Range Interpretation Comme nts VITAMIN D, 25 OH (test code = 4958) 36 NG/ML VITAMIN D, 25 [id number] 00:00:00* Test Item Value Reference Range Interpretation Comme nts VITAMIN D, 25 OH (test code = 4958) 36 NG/ML URIC [id number] 00:00:00* Test Item Value Reference Range Interpretation Comme nts URIC ACID (test code = 2233) 7.5 MG/DL URIC [id number] 00:00:00* Test Item Value Reference Range Interpretation Comme nts URIC ACID (test code = 2233) 7.5 MG/DL VITAMIN D, 25 [id number] 00:00:00* Test Item Value Reference Range Interpretation Comme nts VITAMIN D, 25 OH (test code = 4958) 36 NG/ML VITAMIN D, 25 [id number] 00:00:00* Test Item Value Reference Range Interpretation Comme nts VITAMIN D, 25 OH (test code = 4958) 36 NG/ML URIC [id number] 00:00:00* Test Item Value Reference Range Interpretation Comme nts URIC ACID (test code = 2233) 7.5 MG/DL VITAMIN D, 25 [id number] 00:00:00* Test Item Value Reference Range Interpretation Comme nts VITAMIN D, 25 OH (test code = 4958) 36 NG/ML URIC [id number] 00:00:00* Test Item Value Reference Range Interpretation Comme nts URIC ACID (test code = 2233) 7.5 MG/DL URIC [id number] 00:00:00* Test Item Value Reference Range Interpretation Comme nts URIC ACID (test code = 2233) 7.5 MG/DL VITAMIN D, 25 [id number] 00:00:00* Test Item Value Reference Range Interpretation Comme nts VITAMIN D, 25 OH (test code = 4958) 36 NG/ML VITAMIN D, 25 [id number] 00:00:00* Test Item Value Reference Range Interpretation Comme nts VITAMIN D, 25 OH (test code = 4958) 36 NG/ML VITAMIN D, 25 [id number] 00:00:00* Test Item Value Reference Range Interpretation Comme nts VITAMIN D, 25 OH (test code = 4958) 36 NG/ML Delfino Schumacher [place] [id number] 00:00:00* Test Item Value Reference Range Interpretation Comme nts URIC ACID (test code = 2233) 7.5 MG/DL Delfino Schumacher [place]IT[place] D, 25 [id number] 00:00:00* Test Item Value Reference Range Interpretation Comme nts VITAMIN D, 25 OH (test code = 4958) 36 NG/ML Delfino Schumacher AustinVITAMIN D, 25 [id number] 00:00:00* Test Item Value Reference Range Interpretation Comme nts VITAMIN D, 25 OH (test code = 4958) 36 NG/ML Delfino Schumacher [place] [id number] 00:00:00* Test Item Value Reference Range Interpretation Comme nts URIC ACID (test code = 2233) 7.5 MG/DL Delfino Schumacher [place] D, 25 [id number] 00:00:00* Test Item Value Reference Range Interpretation Comme nts VITAMIN D, 25 OH (test code = 4958) 36 NG/ML Delfino Schumacher [place] [id number] 00:00:00* Test Item Value Reference Range Interpretation Comme nts URIC ACID (test code = 2233) 7.5 MG/DL Delfino Schumacher [place]VIT[place] D, 25 [id number] 00:00:00* Test Item Value Reference Range Interpretation Comme nts VITAMIN D, 25 OH (test code = 4958) 36 NG/ML Delfino Schumacher [place] [id number] 00:00:00* Test Item Value Reference Range Interpretation Comme nts URIC ACID (test code = 2233) 7.5 MG/DL Delfino Schumacher [place] D, 25 [id number] 00:00:00* Test Item Value Reference Range Interpretation Comme nts VITAMIN D, 25 OH (test code = 4958) 36 NG/ML Delfino Schumacher [place] [id number] 00:00:00* Test Item Value Reference Range Interpretation Comme nts URIC ACID (test code = 2233) 7.5 MG/DL Delfino Schumacher [place] D, 25 [id number] 00:00:00* Test Item Value Reference Range Interpretation Comme nts VITAMIN D, 25 OH (test code = 4958) 36 NG/ML Delfino F AustinRHEUMATOID FACTOR, [id number] 00:00:00* Test Item Value Reference Range Interpretation Comme nts RHEUMATOID FACTOR, QUANT (te st code = 3502) <10 IU/ML Delfino F AustinSEDIMENTATION [id number] 00:00:00* Test Item Value Reference Range Interpretation Comme nts SEDIMENTATION RATE (test cod e = 1017) 117 MM/HOUR Delfino F AustinC-REACTIVE [id number] 00:00:00* Test Item Value Reference Range Interpretation Comme nts C-REACTIVE PROTEIN (test cod e = 3513) 0.3 MG/DL Delfino F AustinC-REACTIVE [id number] 00:00:00* Test Item Value Reference Range Interpretation Comme nts C-REACTIVE PROTEIN (test cod e = 3513) 0.3 MG/DL C-REACTIVE [id number] 00:00:00* Test Item Value Reference Range Interpretation Comme nts C-REACTIVE PROTEIN (test cod e = 3513) 0.3 MG/DL RHEUMATOID FACTOR, [id number] 00:00:00* Test Item Value Reference Range Interpretation Comme nts RHEUMATOID FACTOR, QUANT (te st code = 3502) <10 IU/ML RHEUMATOID FACTOR, [id number] 00:00:00* Test Item Value Reference Range Interpretation Comme nts RHEUMATOID FACTOR, QUANT (te st code = 3502) <10 IU/ML RHEUMATOID FACTOR, [id number] 00:00:00* Test Item Value Reference Range Interpretation Comme nts RHEUMATOID FACTOR, QUANT (te st code = 3502) <10 IU/ML SEDIMENTATION [id number] 00:00:00* Test Item Value Reference Range Interpretation Comme nts SEDIMENTATION RATE (test cod e = 1017) 117 MM/HOUR SEDIMENTATION [id number] 00:00:00* Test Item Value Reference Range Interpretation Comme nts SEDIMENTATION RATE (test cod e = 1017) 117 MM/HOUR C-REACTIVE [id number] 00:00:00* Test Item Value Reference Range Interpretation Comme nts C-REACTIVE PROTEIN (test cod e = 3513) 0.3 MG/DL C-REACTIVE [id number] 00:00:00* Test Item Value Reference Range Interpretation Comme nts C-REACTIVE PROTEIN (test cod e = 3513) 0.3 MG/DL RHEUMATOID FACTOR, [id number] 00:00:00* Test Item Value Reference Range Interpretation Comme nts RHEUMATOID FACTOR, QUANT (te st code = 3502) <10 IU/ML RHEUMATOID FACTOR, [id number] 00:00:00* Test Item Value Reference Range Interpretation Comme nts RHEUMATOID FACTOR, QUANT (te st code = 3502) <10 IU/ML RHEUMATOID FACTOR, [id number] 00:00:00* Test Item Value Reference Range Interpretation Comme nts RHEUMATOID FACTOR, QUANT (te st code = 3502) <10 IU/ML SEDIMENTATION [id number] 00:00:00* Test Item Value Reference Range Interpretation Comme nts SEDIMENTATION RATE (test cod e = 1017) 117 MM/HOUR SEDIMENTATION [id number] 00:00:00* Test Item Value Reference Range Interpretation Comme nts SEDIMENTATION RATE (test cod e = 1017) 117 MM/HOUR C-REACTIVE [id number] 00:00:00* Test Item Value Reference Range Interpretation Comme nts C-REACTIVE PROTEIN (test cod e = 3513) 0.3 MG/DL RHEUMATOID FACTOR, [id number] 00:00:00* Test Item Value Reference Range Interpretation Comme nts RHEUMATOID FACTOR, QUANT (te st code = 3502) <10 IU/ML RHEUMATOID FACTOR, [id number] 00:00:00* Test Item Value Reference Range Interpretation Comme nts RHEUMATOID FACTOR, QUANT (te st code = 3502) <10 IU/ML SEDIMENTATION [id number] 00:00:00* Test Item Value Reference Range Interpretation Comme nts SEDIMENTATION RATE (test cod e = 1017) 117 MM/HOUR C-REACTIVE [id number] 00:00:00* Test Item Value Reference Range Interpretation Comme nts C-REACTIVE PROTEIN (test cod e = 3513) 0.3 MG/DL C-REACTIVE [id number] 00:00:00* Test Item Value Reference Range Interpretation Comme nts C-REACTIVE PROTEIN (test cod e = 3513) 0.3 MG/DL RHEUMATOID FACTOR, [id number] 00:00:00* Test Item Value Reference Range Interpretation Comme nts RHEUMATOID FACTOR, QUANT (te st code = 3502) <10 IU/ML RHEUMATOID FACTOR, [id number] 00:00:00* Test Item Value Reference Range Interpretation Comme nts RHEUMATOID FACTOR, QUANT (te st code = 3502) <10 IU/ML RHEUMATOID FACTOR, [id number] 00:00:00* Test Item Value Reference Range Interpretation Comme nts RHEUMATOID FACTOR, QUANT (te st code = 3502) <10 IU/ML SEDIMENTATION [id number] 00:00:00* Test Item Value Reference Range Interpretation Comme nts SEDIMENTATION RATE (test cod e = 1017) 117 MM/HOUR SEDIMENTATION [id number] 00:00:00* Test Item Value Reference Range Interpretation Comme nts SEDIMENTATION RATE (test cod e = 1017) 117 MM/HOUR RHEUMATOID FACTOR, [id number] 00:00:00* Test Item Value Reference Range Interpretation Comme nts RHEUMATOID FACTOR, QUANT (te st code = 3502) <10 IU/ML Delfino F AustinSEDIMENTATION [id number] 00:00:00* Test Item Value Reference Range Interpretation Comme nts SEDIMENTATION RATE (test cod e = 1017) 117 MM/HOUR Delfino F AustinC-REACTIVE [id number] 00:00:00* Test Item Value Reference Range Interpretation Comme nts C-REACTIVE PROTEIN (test cod e = 3513) 0.3 MG/DL Delfino F AustinRHEUMATOID FACTOR, [id number] 00:00:00* Test Item Value Reference Range Interpretation Comme nts RHEUMATOID FACTOR, QUANT (te st code = 3502) <10 IU/ML Delfino F AustinSEDIMENTATION [id number] 00:00:00* Test Item Value Reference Range Interpretation Comme nts SEDIMENTATION RATE (test cod e = 1017) 117 MM/HOUR Delfino F AustinC-REACTIVE [id number] 00:00:00* Test Item Value Reference Range Interpretation Comme nts C-REACTIVE PROTEIN (test cod e = 3513) 0.3 MG/DL Delfino F AustinRHEUMATOID FACTOR, [id number] 00:00:00* Test Item Value Reference Range Interpretation Comme nts RHEUMATOID FACTOR, QUANT (te st code = 3502) <10 IU/ML Delfino F AustinSEDIMENTATION [id number] 00:00:00* Test Item Value Reference Range Interpretation Comme nts SEDIMENTATION RATE (test cod e = 1017) 117 MM/HOUR Delfino F AustinC-REACTIVE [id number] 00:00:00* Test Item Value Reference Range Interpretation Comme nts C-REACTIVE PROTEIN (test cod e = 3513) 0.3 MG/DL Delfino F AustinRHEUMATOID FACTOR, [id number] 00:00:00* Test Item Value Reference Range Interpretation Comme nts RHEUMATOID FACTOR, QUANT (te st code = 3502) <10 IU/ML Delfino F AustinSEDIMENTATION [id number] 00:00:00* Test Item Value Reference Range Interpretation Comme nts SEDIMENTATION RATE (test cod e = 1017) 117 MM/HOUR Delfino F AustinC-REACTIVE [id number] 00:00:00* Test Item Value Reference Range Interpretation Comme nts C-REACTIVE PROTEIN (test cod e = 3513) 0.3 MG/DL Delfino F AustinRHEUMATOID FACTOR, [id number] 00:00:00* Test Item Value Reference Range Interpretation Comme nts RHEUMATOID FACTOR, QUANT (te st code = 3502) <10 IU/ML Delfino F AustinSEDIMENTATION [id number] 00:00:00* Test Item Value Reference Range Interpretation Comme nts SEDIMENTATION RATE (test cod e = 1017) 117 MM/HOUR Delfino F AustinC-REACTIVE [id number] 00:00:00* Test Item Value Reference Range Interpretation Comme nts C-REACTIVE PROTEIN (test cod e = 3513) 0.3 MG/DL Delfino F AustinRHEUMATOID FACTOR, [id number] 00:00:00* Test Item Value Reference Range Interpretation Comme nts RHEUMATOID FACTOR, QUANT (te st code = 3502) <10 IU/ML Delfino F AustinSEDIMENTATION [id number] 00:00:00* Test Item Value Reference Range Interpretation Comme nts SEDIMENTATION RATE (test cod e = 1017) 117 MM/HOUR Delfino F AustinC-REACTIVE [id number] 00:00:00* Test Item Value Reference Range Interpretation Comme nts C-REACTIVE PROTEIN (test cod e = 3513) 0.3 MG/DL Delfino OrtaRHEUMATOID FACTOR, [id number] 00:00:00* Test Item Value Reference Range Interpretation Comme nts RHEUMATOID FACTOR, QUANT (te st code = 3502) <10 IU/ML Delfino OrtaSEDIMENTATION [id number] 00:00:00* Test Item Value Reference Range Interpretation Comme nts SEDIMENTATION RATE (test cod e = 1017) 117 MM/HOUR Delfino OrtaC-REACTIVE [id number] 00:00:00* Test Item Value Reference Range Interpretation Comme nts C-REACTIVE PROTEIN (test cod e = 3513) 0.3 MG/DL Delfino Orta Consult Notes Date/Time Note Provider Source 2023-05-19 10:11:14 Associated Order(s): CONSULT CARDIOLOGY [facility] Cardiology Consult PCP: Jt Delfino Orta [facility] Date of Service: 05/19/2023 CHIEF COMPLAINT/reason for consult: Troponin elevation HISTORY OF PRESENT ILLNESS This is a 58 years old female with past medical history of HIV, hypertension, hyperlipidemia, possible CAD etc. She came to [facility] due to cough and dyspnea. She was found to have COPD exacerbation. Labs showed troponin elevation and TAIWO. Denies chest pain. No acute EKG changes. Echocardiogram showed hyperdynamic left ventricle with ejection fraction over 65%. Moderate aortic stenosis noted. PAST MEDICAL HISTORY Past Medical History: Diagnosis Date Coronary atherosclerosis of unspecified type of vessel, [place] or graft 02/11/2013 heart attack Genital warts 08/25/2014 Human immunodeficiency virus (HIV) disease Hypertension Murmur, cardiac 06/10/2021 Past Surgical History: Procedure Laterality Date BACK SURGERY HYSTERECTOMY PTCA/STENT Family History Problem Relation Age of Onset Hypertension Mother Coronary Heart Disease Mother Cancer Father Coronary Heart Disease Sister ALLERGIES No Known Allergies MEDICATIONS No current facility-administered medications on file prior to encounter. Current Outpatient Medications on File Prior to Encounter Medication Sig Dispense Refill celecoxib 400 mg capsule Take 1 capsule by mouth in the morning. albuterol 90 mcg/actuation inhaler Inhale 2 Puffs every 6 (six) hours as needed for Wheezing or Shortness of Breath. 8.5 g 0 uqryfuazc-kqtunsth-asrmnki ala 50-200-25 mg tablet Take 1 tablet by mouth in the morning. 30 tablet 11 losartan 100 mg tablet Take 1 tablet by mouth daily. 90 tablet 1 amLODIPine 10 mg tablet Take 1 tablet by mouth daily. 90 tablet 1 atorvastatin 40 mg tablet Take 1 tablet by mouth at bedtime. 90 tablet 1 fluticasone propionate (FLOVENT HFA) 220 mcg/actuation inhaler Inhale 2 Puffs every 12 (twelve) hours. 1 Inhaler 0 fluticasone propionate 50 mcg/actuation nasal spray Use 2 Sprays in each nostril daily. 1 Bottle 0 ibuprofen 600 mg tablet Take 1 tablet by mouth every 6 (six) hours as needed for Pain (scale 4-6). 14 tablet 0 Cetirizine (ZYRTEC) 10 mg capsule Take 1 Cap by mouth at bedtime. 30 Cap 0 hydrocortisone 1%-nystatin-zinc oxide Oint ointment Apply to affected area(s) as needed for Dermatitis/Rash. 1 g 0 ibuprofen 600 mg tablet Take 1 tablet by mouth every 6 (six) hours as needed for Pain (scale 4-6). 12 tablet 0 fluconazole 200 mg tablet Take 1 tablet by mouth in the morning. 14 tablet 0 sulfamethoxazole-trimethoprim 800-160 mg per tablet Take 1 tablet by mouth in the morning. 30 tablet 5 efavirenz 600 mg tablet Take 1 tablet by mouth daily. 30 tablet 1 metoprolol tartrate 25 mg tablet Take 0.5 tablets by mouth 2 (two) times daily. 30 tablet 1 nystatin 100,000 unit/mL suspension Take 5 mL by mouth 4 (four) times daily. 40 mL 0 chlorhexidine (PERIDEX) 0.12 % mouthwash Swish and spit out 15 mL 2 (two) times daily. 473 mL 0 ALPRAZOLAM ORAL Take by mouth. SOCIAL HISTORY Social History Socioeconomic History Marital status: Tobacco Use Smoking status: Never Smokeless tobacco: Never Substance and Sexual Activity Alcohol use: No Drug use: No Sexual activity: Not Currently Social History Narrative No domestic violence or abuse Social Determinants of Health Financial Resource Strain: Low Risk (05/17/2023) Overall Financial Resource Strain (CARDIA) Difficulty of Paying Living Expenses: Not hard at all Food Insecurity: No Food Insecurity (05/17/2023) Hunger Vital Sign Worried About Running Out of Food in the Last Year: Never true Ran Out of Food in the Last Year: Never true Transportation Needs: No Transportation Needs (05/17/2023) PRAPARE - Transportation Lack of Transportation (Medical): No Lack of Transportation (Non-Medical): No Physical Activity: Inactive (05/17/2023) Exercise Vital Sign Days of Exercise per Week: 0 days Minutes of Exercise per Session: 0 min Social Connections: Unknown (05/17/2023) Social Connection and Isolation Panel [NHANES] Frequency of Communication with Friends and Family: More than three times a week Marital Status: Housing Stability: Low Risk (05/17/2023) Housing Stability Vital Sign Unable to Pay for Housing in the Last Year: No Number of Places Lived in the Last Year: 1 Unstable Housing in the Last Year: No REVIEW OF SYSTEMS At least 10 systems reviewed, negative except as mentioned in HPI PHYSICAL EXAMINATION Vitals: 05/19/23 0504 05/19/23 0733 05/19/23 0806 05/19/23 0834 BP: 131/80 Pulse: 78 75 Resp: 24 16 16 16 Temp: 36.1 ?C (97 ?F) TempSrc: Temporal Artery SpO2: 97% 99% 97% 97% Weight: Height: Constitutional: alert and oriented x 3 (person, place and date/time); no apparent distress ENT: normocephalic atraumatic, supple, no lymphadenopathy, no bruits, no JVD Lungs: clear to auscultation bilaterally Cardiovascular: S1, S2 normal, regular; 2/6 SM GI: soft; non-tender; non-distended; normoactive bowel sounds : not examined Musculoskeletal: Extremities: no clubbing, cyanosis, or edema Skin: no rashes Neuro: no focal deficits LABS - reviewed pertinent labs as below: CBC BMP PT/INR WBC x10 3 (/uL) Date Value 12/31/2011 4.1 (L) WBC (10*3/?L) Date Value 05/17/2023 7.67 NA Date Value 05/19/2023 142 mmol/L 12/31/2011 143 MMOL/L No results found for: "PT" PLT x10 3 (/uL) Date Value 12/31/2011 312 PLT (10*3/?L) Date Value 05/17/2023 133 (L) K Date Value 05/19/2023 4.4 mmol/L 12/31/2011 3.7 MMOL/L No results found for: "PTINR" HGB Date Value 05/17/2023 12.5 g/dL 12/31/2011 9.8 G/DL (L) BUN Date Value 05/19/2023 38 mg/dL (H) 12/31/2011 19 MG/DL HCT (%) Date Value 05/17/2023 37.2 12/31/2011 30.8 (L) CREATININE Date Value 05/19/2023 1.73 mg/dL (H) 12/31/2011 1.37 MG/DL (H) LIPID PROFILE GLUCOSE Date Value 05/19/2023 116 mg/dL (H) 12/31/2011 77 MG/DL No results found for: "CHOL" TSH No results found for: "LDL" No results found for: "TSH" CARDIAC ENZYMES No results found for: "HDL" CK (U/L) Date Value 12/24/2014 118 No results found for: "TRIG" LFTs CK-MB (ng/mL) Date Value 12/24/2014 1.76 AST(SGOT) (U/L) Date Value 05/17/2023 54 (H) 12/31/2011 41 (H) TROPONIN I (ng/mL) Date Value 05/17/2023 0.187 (H) ALT(SGPT) (U/L) Date Value 09/02/2017 23 12/31/2011 26 ALTv (U/L) Date Value 05/17/2023 35 No results found for: "BNP" IMAGING - reviewed, pertinent results as below: Chest x-ray-mild interstitial changes EKG: Normal sinus rhythm, lateral ST-T abnormality ASSESSMENT/PLAN Principal Problem: Acute cough Active Problems: HIV (human immunodeficiency virus infection) COPD exacerbation Troponin I above reference range Primary hypertension Other hyperlipidemia TAIWO (acute kidney injury) Aortic stenosis Coronary artery disease involving [place] coronary artery of [place] heart without angina pectoris COPD exacerbation-continue antibiotics, steroids and bronchodilators. Continue supportive care. Troponin elevation-no chest pain. No acute EKG changes. Echo showed hyperdynamic ejection fraction over 65% with normal wall motion. This suggest this is less likely to be ACS. More likely to be type II myocardial infarction due to demand ischemia in the setting of COPD exacerbation. Troponin level has been static. Recommend to restart aspirin and statins. Continue metoprolol. Follow-up with his primary risk mgr. Possible CAD-she denies coronary intervention. Recommend to restart aspirin and statins. Continue metoprolol. Aortic stenosis-moderate degree. Consider annual echocardiogram to assess the degree. TAIWO-improved with IV hydration. Hypertension-her blood pressure is well-controlled. Continue amlodipine. Continue losartan and metoprolol. Hyperlipidemia-fasting lipid panel. Recommend restart statins. Thank you for allowing us to participate in the care of your patient. Please feel free to contact us for any questions or if we can be of further assistance. James Stacy MD, [facility], [facility] Correspondence Specialist Division of Cardiovascular Medicine [facility] - Health History and Physical Notes Date/Time Note Provider Source 2023-05-16 23:13:44 Medicine History & Physical Date of Service: 05/16/2023 Pt presents from: Home CC: Cough, shortness of breath History of Present Illness: Charito Quiñonez is a 58 year old female with a PMH of uncontrolled HIV, COPD, hypertension, coronary artery disease, cerebral palsy who presented to the ED for cough, shortness of breath. Symptoms started yesterday. She is compliant with her Biktarvy, as well as Bactrim for prophylaxis. She is began having a productive cough, productive of yellow sputum. She has been having shortness of breath with exertion for the past day. She denies fever. She endorses sore throat. She denies chest pain ROS: Pt denies fever / chills / nausea / vomiting / diarrhea / constipation / chest pain /abdominal pain / dysuria / hematuria / melena / hematochezia / rashes / suicidal or homicidal ideation / All others negative Review of Hx/Meds: No current facility-administered medications on file prior to encounter. Current Outpatient Medications on File Prior to Encounter Medication Sig Dispense Refill celecoxib 400 mg capsule Take 1 capsule by mouth in the morning. albuterol 90 mcg/actuation inhaler Inhale 2 Puffs every 6 (six) hours as needed for Wheezing or Shortness of Breath. 8.5 g 0 conogtmua-wgyoinrw-krfyfuo ala 50-200-25 mg tablet Take 1 tablet by mouth in the morning. 30 tablet 11 losartan 100 mg tablet Take 1 tablet by mouth daily. 90 tablet 1 amLODIPine 10 mg tablet Take 1 tablet by mouth daily. 90 tablet 1 atorvastatin 40 mg tablet Take 1 tablet by mouth at bedtime. 90 tablet 1 fluticasone propionate (FLOVENT HFA) 220 mcg/actuation inhaler Inhale 2 Puffs every 12 (twelve) hours. 1 Inhaler 0 fluticasone propionate 50 mcg/actuation nasal spray Use 2 Sprays in each nostril daily. 1 Bottle 0 ibuprofen 600 mg tablet Take 1 tablet by mouth every 6 (six) hours as needed for Pain (scale 4-6). 14 tablet 0 Cetirizine (ZYRTEC) 10 mg capsule Take 1 Cap by mouth at bedtime. 30 Cap 0 hydrocortisone 1%-nystatin-zinc oxide Oint ointment Apply to affected area(s) as needed for Dermatitis/Rash. 1 g 0 ibuprofen 600 mg tablet Take 1 tablet by mouth every 6 (six) hours as needed for Pain (scale 4-6). 12 tablet 0 fluconazole 200 mg tablet Take 1 tablet by mouth in the morning. 14 tablet 0 sulfamethoxazole-trimethoprim 800-160 mg per tablet Take 1 tablet by mouth in the morning. 30 tablet 5 efavirenz 600 mg tablet Take 1 tablet by mouth daily. 30 tablet 1 metoprolol tartrate 25 mg tablet Take 0.5 tablets by mouth 2 (two) times daily. 30 tablet 1 nystatin 100,000 unit/mL suspension Take 5 mL by mouth 4 (four) times daily. 40 mL 0 chlorhexidine (PERIDEX) 0.12 % mouthwash Swish and spit out 15 mL 2 (two) times daily. 473 mL 0 ALPRAZOLAM ORAL Take by mouth. I have reviewed the patient's home medications PMH: Past Medical History: Diagnosis Date Coronary atherosclerosis of unspecified type of vessel, [place] or graft 02/11/2013 heart attack Genital warts 08/25/2014 Human immunodeficiency virus (HIV) disease Hypertension Murmur, cardiac 06/10/2021 PSH: has a past surgical history that includes hysterectomy; back surgery; and ptca/stent. Family Hx: Social History Tobacco Use Smoking status: Never Smokeless tobacco: Never Substance Use Topics Alcohol use: No Drug use: No Current Scheduled Medications Current IV Current Facility-Administered Medications: acetaminophen (TYLENOL) tablet 650 mg, 650 mg, Oral, Q6HPRN, Kvng Roberson DO, 650 mg at 05/16/23 2017 albuterol (VENTOLIN) inhaler 2 Puff, 2 Puff, Inhalation, Q6HPRN, Lefty Abreu MD amLODIPine (NORVASC) tablet 10 mg, 10 mg, Oral, DAILY, Lefty Abreu MD, 10 mg at 05/16/238 azithromycin (ZITHROMAX) 500 mg in NaCl 0.9% (NS) 250 mL VIAL-MATE IV piggyback, 500 mg, IV Piggyback, Q24H ABX, Kvng Roberson DO, Stopped at 05/16/23 1659 cetirizine (ZYRTEC) tablet 10 mg, 10 mg, Oral, QHS, Lefty Abreu MD, 10 mg at 05/16/23 2218 [START ON 05/17/2023] efavirenz (SUSTIVA) tablet 600 mg, 600 mg, Oral, DAILY, Lefty Abreu MD [START ON 05/17/2023] fluconazole (DIFLUCAN) tablet 200 mg, 200 mg, Oral, DAILY, Lefty Abreu MD [START ON 05/17/2023] fluticasone propionate (FLOVENT HFA) 220 mcg/actuation inhaler 2 Puff, 2 Puff, Inhalation, Q12H, Lefty Abreu MD heparin (porcine) injection 5,000 Units, 5,000 Units, Subcutaneous, Q8H, Kvng Roberson DO, 5,000 Units at 05/16/238 ipratropium-albuteroL (DUONEB) 0.5 mg-3 mg(2.5 mg base)/3 mL nebulizer solution 3 mL, 3 mL, Inhalation, Q4H, Kvng Roberson DO, 3 mL at 05/16/232029 [START ON 05/17/2023] losartan (COZAAR) tablet 100 mg, 100 mg, Oral, DAILY, Lefty Abreu MD [START ON 05/17/2023] metoprolol tartrate (LOPRESSOR) tablet 12.5 mg, 12.5 mg, Oral, BID, Lefty Abreu MD [START ON 05/17/2023] NON-FORMULARY MEDICATION 50 mg, 50 mg, Oral, DAILY, Lefty Abreu MD [START ON 05/17/2023] predniSONE (DELTASONE) tablet 40 mg, 40 mg, Oral, DAILY, Kvng Roberson DO sodium chloride (NS) injection 5 mL, 5 mL, Intravenous, PRN, Anyi Hearn NP [START ON 05/17/2023] sulfamethoxazole-trimethoprim (BACTRIM DS) 800-160 mg per tablet 1 tablet, 1 tablet, Oral, QMON/SAT/SAT AT 2000, Lefty Abreu MD Objective: Vitals: Vitals: 05/16/23 16105/16/23162305/16/23191405/16/232029 BP: 117/69 Pulse: 98 99 Resp: 16 16 18 25 Temp: 37.2 ?C (99 ?F) TempSrc: SpO2: 97% 96% 94% 94% Weight: Height: I/O's: Intake/Output Summary (Last 24 hours) at 05/16/2023 231 Last data filed at 05/16/20231914 Gross per 24 hour Intake 505.31 ml Output -- Net 505.31 ml Physical Exam: Constitutional: A&O x3, well-developed, well-nourished, and in no distress. Head: Normocephalic and atraumatic. Eyes: PERRL. Conjunctivae and EOM are normal. Neck: Normal range of motion. Neck supple. No JVD present. Cardiovascular: Normal rate, regular rhythm, normal heart sounds Pulmonary/Chest: Effort normal and breath sounds normal. No respiratory distress. Significant wheezing Abdominal: Soft. Bowel sounds are normal. No TTP, non-distended and no masses. No rebound or guarding. Musculoskeletal: Normal range of motion. No edema or tenderness. Lymphadenopathy: No cervical adenopathy. Neurological: A&O x3. No focal deficits. Gait normal. Skin: Skin is warm and dry. No rash noted. No erythema. No pallor. Labs: BMP:BMP NA Date Value 05/16/2023 143 mmol/L 06/14/2021 139 mmol/L 06/13/2021 139 mmol/L 06/12/2021 139 mmol/L 06/11/2021 136 mmol/L 12/31/2011 143 MMOL/L K Date Value 05/16/2023 3.9 mmol/L 06/14/2021 4.5 mmol/L 06/13/2021 4.2 mmol/L 06/12/2021 3.9 mmol/L 06/11/2021 4.2 mmol/L 12/31/2011 3.7 MMOL/L CALCIUM Date Value 05/16/2023 10.2 mg/dL 06/14/2021 8.9 mg/dL 06/13/2021 9.2 mg/dL 06/12/2021 9.1 mg/dL 06/11/2021 8.9 mg/dL 12/31/2011 8.9 MG/DL CL Date Value 05/16/2023 116 mmol/L (H) 06/14/2021 115 mmol/L (H) 06/13/2021 115 mmol/L (H) 06/12/2021 114 mmol/L (H) 06/11/2021 112 mmol/L (H) 12/31/2011 105 MMOL/L BUN Date Value 05/16/2023 29 mg/dL (H) 06/14/2021 13 mg/dL 06/13/2021 11 mg/dL 06/12/2021 15 mg/dL 06/11/2021 17 mg/dL 12/31/2011 19 MG/DL CREATININE Date Value 05/16/2023 1.90 mg/dL (H) 06/14/2021 1.01 mg/dL 06/13/2021 0.95 mg/dL 06/12/2021 1.10 mg/dL (H) 06/11/2021 1.07 mg/dL (H) 12/31/2011 1.37 MG/DL (H) GLUCOSE Date Value 05/16/2023 104 mg/dL 06/14/2021 83 mg/dL 06/13/2021 87 mg/dL 06/12/2021 89 mg/dL 06/11/2021 84 mg/dL 12/31/2011 77 MG/DL CO2 TOTAL Date Value 05/16/2023 15 mmol/L (L) 06/14/2021 18 mmol/L (L) 06/13/2021 19 mmol/L (L) 06/12/2021 19 mmol/L (L) 06/11/2021 16 mmol/L (L) 12/31/2011 26 MMOL/L CBC:CBC WBC x10 3 (/uL) Date Value 12/31/2011 4.1 (L) WBC (10*3/?L) Date Value 05/16/2023 5.24 RBC x10 6 (/uL) Date Value 12/31/2011 3.33 (L) RBC (10*6/?L) Date Value 05/16/2023 3.83 (L) PLT x10 3 (/uL) Date Value 12/31/2011 312 PLT (10*3/?L) Date Value 05/16/2023 142 (L) HGB Date Value 05/16/2023 14.2 g/dL 12/31/2011 9.8 G/DL (L) HCT (%) Date Value 05/16/2023 42.4 12/31/2011 30.8 (L) BMP:Hepatic Function Panel ALBUMIN Date Value 05/16/2023 4.6 g/dL 12/31/2011 3.7 G/DL T PROTEIN Date Value 05/16/2023 9.8 g/dL (H) 12/31/2011 8.9 G/DL (H) TOTAL BILI Date Value 05/16/2023 0.5 mg/dL 12/31/2011 0.5 MG/DL ALT(SGPT) (U/L) Date Value 09/02/2017 23 12/31/2011 26 ALTv (U/L) Date Value 05/16/2023 44 (H) AST(SGOT) (U/L) Date Value 05/16/2023 54 (H) 12/31/2011 41 (H) ALK PHOS (U/L) Date Value 05/16/2023 103 12/31/2011 79 Troponin: Recent Labs 05/16/23 1613 TROPNI 0.186* I have reviewed all relevant labs Imaging: XR CHEST 1 VW Result Date: 05/16/2023 HISTORY: Cough and SOB. TECHNIQUE: Portable AP view of the chest is obtained. Comparison made with 06/09/2021 study. FINDINGS: Abnormal findings are seen in both lungs, likely chronic changes of nonspecific pulmonary fibrosis. Superimposed mild acute inflammatory congestion is difficult to exclude in both lungs. No focal consolidation. Cardiac size is upper normal. No pneumothorax or pleural effusion. CONCLUSIONS: Chronic changes of nonspecific bilateral pulmonary fibrosis with superimposed minimal acute congestion suspected in right upper and left lower lung. Acute findings could be secondary to viral infection. Assessment and plan: Principal Problem: Acute cough 58-year-old female with history including HIV, COPD, hypertension, coronary disease cerebral palsy will presents for COPD along with TAIWO and elevated troponin Acute on chronic COPD - Chest x-ray shows some congestion in bilateral upper lobes - Empiric azithromycin - DuoNebs every 4 hours - Prednisone daily-. Albuterol TAIWO - Creatinine elevated to 1.9. Follow-up urine electrolytes NSTEMI Patient denies chest pain. Troponin elevated 2.186. Continue to trend. No adverse changes on EKG. Maintain telemetry. Uncontrolled HIV Resume Biktarvy. Resume Bactrim Saturday. Resume fluconazole Hypertension Resume home amlodipine 10, losartan 100, metoprolol 12.5 mg twice daily DVT prophylaxis: Subcu heparin Advanced Care Planning ( Z71.89 ) Above assessment and plan discussed at length with patient, patient expressed full understanding. Questions and concerns addressed I spent 18 minutes discussing the advance care planning. Advanced Directive Maker: Self Level of comfort: N/A Code Status: Full Tobacco user (Z71.6) Patient counseled at length and Pt expressed full understanding, Time discussed 3 minutes Disposition: Admit to inpatient IM-INTERNAL MEDICINE STAFF [facility] Notes Date/Time Note Provider Source [facility]2024-07-30 00:00:00 [facility]2024-07-17 00:00:00 [facility]2024-07-11 00:00:00 [facility]2024-06-28 00:00:00 [facility]2024-06-12 00:00:00 [facility]2024-05-28 00:00:00 [facility]2024-04-23 00:00:00 [facility]2024-04-10 08:57:37 TRANSITIONAL CARE MANAGEMENT ASSESSMENT 05/22/2023 Charito Quiñonez [id number] Charito Quiñonez is a 58 year old Black or female was admitted on 05/16/23 to [facility]. She was discharged on 05/20/23 with discharge disposition of HR- Routine Discharge. Admitting Physician: Kvng Roberson Discharge Diagnosis: Acute on chronic COPD - Chest x-ray shows some congestion in bilateral upper lobes - continue Empiric azithromycin - DuoNebs scheduled - Prednisone daily-. Albuterol --Patient advised to f/u with Pulmonology 1 week post-hospital discharge --Qualified for home O2 pending delivery patient can likely be discharged TAIWO - Creatinine slighly elevated 1.73 1.69 (1.9). Follow-up urine electrolytes -- Patient advised to f/u with Nephrology/Dr. Han in 1 week post-discharge from hospital NSTEMI --Patient denies chest pain. Troponin 0.187 --Continue to trend. No adverse changes on EKG. Maintain telemetry. -- Patient advised to f/u with cardiology 1 week post-hospital discharge Uncontrolled HIV Resume Biktarvy. Resume Bactrim Saturday. Resume fluconazole Hypertension Resume home amlodipine 10, losartan 100, metoprolol 12.5 mg twice daily No linked episodes TCM Asi-erod-xy-face outreach documentation: CM made follow up call to patient post-discharge. Phone rings with no answer and no voicemail. Two attempts made to reach patient. Discharge Assessment Chart Assessed: 05/22/23 TCM Outreach Completed: 05/22/23 Future Appointments: T Lj Paredes RN[facility], [id number] 14:20:10 CM made follow up call to patient post-discharge. No answer and no voicemail. [facility] [id number] 15:49:35 Problem: Pain Goal: Control of pain at or below patient's documented comfort goal Outcome: Adequate for discharge Goal: Reduction in pain sensation Outcome: Adequate for discharge Problem: Respiratory Function - Impaired Goal: Able to cough effectively Outcome: Adequate for discharge Goal: Adequate oxygenation Outcome: Adequate for discharge Goal: Adequate work of breathing Outcome: Adequate for discharge Problem: Discharge Planning Goal: Adequate for discharge Outcome: Adequate for discharge Pedro Pablo Rios [id number] 13:54:10 Problem: Pain Goal: Control of pain at or below patient's documented comfort goal Outcome: Progressing as expected Goal: Reduction in pain sensation Outcome: Progressing as expected Problem: Respiratory Function - Impaired Goal: Able to cough effectively Outcome: Progressing as expected Goal: Adequate oxygenation Outcome: Progressing as expected Goal: Adequate work of breathing Outcome: Progressing as expected Problem: Discharge Planning Goal: Adequate for discharge Outcome: Progressing as expected T Valeria Tyler [id number] 23:51:17 Problem: Pain Goal: Control of pain at or below patient's documented comfort goal Outcome: Progressing as expected Goal: Reduction in pain sensation Outcome: Progressing as expected Problem: Respiratory Function - Impaired Goal: Able to cough effectively Outcome: Progressing as expected Goal: Adequate oxygenation Outcome: Progressing as expected Goal: Adequate work of breathing Outcome: Progressing as expected Problem: Discharge Planning Goal: Adequate for discharge Outcome: Progressing as expected Marisela Bañuelos [id number] 12:43:53 Problem: Pain Goal: Control of pain at or below patient's documented comfort goal Outcome: Progressing as expected Goal: Reduction in pain sensation Outcome: Progressing as expected Problem: Respiratory Function - Impaired Goal: Able to cough effectively Outcome: Progressing as expected Goal: Adequate oxygenation Outcome: Progressing as expected Goal: Adequate work of breathing Outcome: Progressing as expected Problem: Discharge Planning Goal: Adequate for discharge Outcome: Progressing as expected [place] [id number] 13:44:06 Problem: Pain Goal: Control of pain at or below patient's documented comfort goal Outcome: Progressing as expected Goal: Reduction in pain sensation Outcome: Progressing as expected Problem: Respiratory Function - Impaired Goal: Able to cough effectively Outcome: Progressing as expected Goal: Adequate oxygenation Outcome: Progressing as expected Goal: Adequate work of breathing Outcome: Progressing as expected Problem: Discharge Planning Goal: Adequate for discharge Outcome: Progressing as expected Health2024-04-06 06:26:57 Problem: Pain Goal: Control of pain at or below patient's documented comfort goal Outcome: Progressing as expected Goal: Reduction in pain sensation Outcome: Progressing as expected Problem: Respiratory Function - Impaired Goal: Able to cough effectively Outcome: Progressing as expected Goal: Adequate oxygenation Outcome: Progressing as expected Goal: Adequate work of breathing Outcome: Progressing as expected Problem: Discharge Planning Goal: Adequate for discharge Outcome: Progressing as expected [place] [id number] 01:04:[address] Rosario about pt having generalized wheezing and would benefit from IV steroids, waiting for response. Will continue to monitor. . [facility] Argentina Chambers [id number] 17:16:46 Problem: Pain Goal: Control of pain at or below patient's documented comfort goal 05/17/2023 171 by Molly Pond RN Outcome: Progressing as expected 05/17/2023 171 by Molly Pond RN Outcome: Progressing as expected Goal: Reduction in pain sensation 05/17/2023 171 by Molly Pond A, RN Outcome: Progressing as expected 05/17/2023 1715 by Molly Pond RN Outcome: Progressing as expected Problem: Respiratory Function - Impaired Goal: Able to cough effectively 05/17/2023 1716 by Molly Pond RN Outcome: Progressing as expected 05/17/2023 171 by Molly Pond RN Outcome: Progressing as expected Goal: Adequate oxygenation 05/17/2023 1716 by Molly Pond RN Outcome: Progressing as expected 05/17/2023 171 by Molly Pond RN Outcome: Progressing as expected Goal: Adequate work of breathing 05/17/2023 171 by Molly Pond RN Outcome: Progressing as expected 05/17/2023 171 by Molly Pond RN Outcome: Progressing as expected Problem: Discharge Planning Goal: Adequate for discharge 05/17/2023 1716 by Molly Pond RN Outcome: Progressing as expected 05/17/20231714 by Molly Pond RN Outcome: Progressing as expected [facility] - [id number] 21:20:00 Problem: Pain Goal: Control of pain at or below patient's documented comfort goal Outcome: Progressing as expected Goal: Reduction in pain sensation Outcome: Progressing as expected Problem: Respiratory Function - Impaired Goal: Able to cough effectively Outcome: Progressing as expected Goal: Adequate oxygenation Outcome: Progressing as expected Goal: Adequate work of breathing Outcome: Progressing as expected Problem: Discharge Planning Goal: Adequate for discharge Outcome: Progressing as expected Hanny Moran [facility] - [id number] 16:51:01 Problem: Pain Goal: Control of pain at or below patient's documented comfort goal Outcome: Progressing as expected Goal: Reduction in pain sensation Outcome: Progressing as expected Problem: Respiratory Function - Impaired Goal: Able to cough effectively Outcome: Progressing as expected Goal: Adequate oxygenation Outcome: Progressing as expected Goal: Adequate work of breathing Outcome: Progressing as expected Problem: Discharge Planning Goal: Adequate for discharge Outcome: Progressing as expected [place] [id number] 15:24:48 Report given to HALLE Barnesforensic document examiner Audrey Hitchcock [place] [id number] 12:06:08 Patient states that she feels short of breath. Fortino Morales [place] [id number] 12:04:19 Patients states "I have a cold, I have a cough and it hurts in my back up to my head. And I am chaffed between my legs. I need some antibiotics." Patients respirations are labored with accessory muscle usage, oxygen saturation 82% on room air. [place] [id number] 12:34:58 PT D/C home. GCS15, VS stable, no ataxia noted. Given two prescriptions and D/C paperwork. S/S relieved at this time. Pt ambulatory at time of discharge. Pt educated on leg pain, med usage, follow up care, s/s worsening condition. Pt verbalized understanding. 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 REPAIRER Fortino Morales [id number] 14:30:17 Pt given printed and verbal discharge instructions regarding acute midline thoracic back pain, encouraged hydration, 2 Prescriptions sent. Discussed ibuprofen and to take with food to avoid GI distress. Pt verbalized understanding of instructions, pt awake alert oriented, resp reg unlabored, skin w/d,color appropriate for race, moves all ext well,pt encouraged to follow up with pcp Advised to seek medical attention for new/prolonged/worsening of symptoms, Symptoms improved. No adverse reaction to meds given in ER noted upon discharge Awake, alert oriented, resp reg unlabored, skin w/d, pt leaving amb with steady gait, in no apparent distress, Dayna Babcock [id number] 11:41:55 Pt arrived via transit bus with c/o back pain s/p fall 1 week ago. States she has not medicated forthe pain. Pt is also requesting refills of her nasal spray and inhaler. Rosalia Burton [facility]
[2023-10-09] MEDS ORDERED: HYDROCODONE/APAP 5/325 MG TAB ONE (13:13)
[2023-10-09 13:37] VITALS: BP 119/75; TEMP 97.1; O2SAT 98
== END 2023-10-09 13:21 | disposition home or self-care (01) ==
LOC: ER 12:43
DX: M54.50 Low back pain, unspecified (principal); G89.29 Other chronic pain; Z21 Asymptomatic human immunodeficiency virus [HIV] infection status; I10 Essential (primary) hypertension; I50.9 Heart failure, unspecified; J44.9 Chronic obstructive pulmonary disease, unspecified

== ENCOUNTER 2024-02-20 13:07 | Inpatient (IN) | payer OTHER ==
--- OUTSIDE RECORDS SUMMARY | 2024-02-20 13:38 | XMS REPORT | Continuity of Care Document ---
Author Name Unknown Address [address] [facility] [address] [place] [address] [facility] thconnect Address [address] 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 Role Phone Delfino Schumacher [facility] Physician Zaria Orellana Attending Clinician Unavail able Lianet Pierre Attending Clinician [phone] Lj Paredes RN Attending Clinician Unavail able KVNG ROBERSON Attending Clinician Unavailable Anyi Hearn NP Attending Clinician [phone] Kvng Roberson DO Attending Clinician GASTON HOBBS Attending Clinician Unavailable Gaston Hobbs MD Attending Clinician [phone] Kaasndra Cha Attending Clinician [phone] LEE HENDERSON Attending Clinician Unavailab CLARITZA Booth Attending Clinician Unavail able Doctor Unassigned, Joffre Attending Clinician U iván Almaguer RN, Jeanine Jones Attending Clinician Mary Ellen Garcia MD, Guerline Attending Clinician [phone] Guero Pantoja Attending Clinician [phone] GUERO MARTINEZ Attending Clinician Unavailable Jeanie NERI, Osman Loya Attending Clinician Unavaila harvey RODRIGUEZ Attending Clinician Unavailable Av Attending Clinician Unavailable APOLINAR WEBER Attending Clinician Unavailable Pgy2 Attending Clinician Unavailable Apolinar Weber MD Attending Clinician [phone] Enedina Mccarty MD Attending Clinician [phone] BILLY VALERIO Attending Clinician UnavailToby Madden MD Attending Clinician [phone] Delores Garcia MD, Tressa Schwartz Attending Clinician [phone] Billy Valerio MD Attending Clinician [phone] Shaun BARROS, Evette L Attending Clinician Unavailab KENNEDI Pop Attending Clinician Unavailable Kennedi Blue NP Attending Clinician + [phone] Mikael Quiroz Attending Clinician [phone] LJ LIANG Attending Clinician Unavailable Lj Mcguire Attending Clinician + [phone] MARGARET NUNEZ Attending Clinician Unavailab Margaret Rodgers DO Attending Clinician [phone] Christophe CENTENO, [place]ny K.H. Attending Clinician + [phone] BONNY MORRIS K.HAg Attending Clinician Unavaila Terri Clemente Attending Clinician [phone] Dawn Mendoza S Attending Clinician [phone] Maggie_Tressa Attending Clinician Unavailable Josse Steele Attending Clinician [phone] JOSSE LOCKHART Attending Clinician Unavaila KVNG Weber Admitting Clinician Unavailable Kvng Roberson DO Admitting Clinician [phone] AGSTON HOBBS Admitting Clinician Unavailable JENNIFER Admitting Clinician Unavailable Av Admitting Clinician Unavailable Tressa ESTRELLA JR Admitting Clinician Unavailtressa Estrella Jr., MD, A Efren Admitting Clinician [phone] KENNEDI BLUE Admitting Clinician Unavailable Sammi Admitting Clinician Unavailable Payers Payer Name Policy Type Policy Number Effective Date Expirati on Date Source [facility] MCR Dual Complete (HMO-POS D-SNP) [id number] [facility] [employer] (MEDICARE REPLACEMENT HMO) [id number] 2020 00:00:00 Problems Condition Name Condition Details Condition Category Status Onset Date Resolution Date Last Treatment Date Treating Clinician Comments Source COPD exacerbati on COPD exacerbati on Disease Active 05-18 00:00: 00 [facility] Troponin I above reference range Troponin I above reference range Disease Active 4 00:00: 00 [facility] Other hyperlipid emia Other hyperlipid emia Disease Active 05-18 00:00: 00 [facility] TAIWO (acute kidney injury) TAIWO (acute kidney injury) Disease Active 05-18 00:00: 00 [facility] Aortic stenosis Aortic stenosis Disease Active 05-18 00:00: 00 [facility] Coronary artery disease involving [place] coronary artery of [place] heart without angina pectoris Coronary artery disease involving [place] coronary artery of [place] heart without angina pectoris Disease Active 05-18 00:00: 00 [facility] Acute cough Acute cough Disease Active 4-04 00:00: 00 [facility] 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 Active 517 00:00: 00 [facility] Bacteremia Bacteremia Disease Active 06-09 00:00: 00 [facility] Medically noncomplia nt Medically noncomplia nt Disease Active 09-02 00:00: 00 [facility] Thrush Thrush Disease Active 09-02 00:00: 00 [facility] Obesity (BMI 30-39.9) Obesity (BMI 30-39.9) Disease Active 05-31 00:00: 00 [facility] Genital warts Genital warts Disease Active 08-25 00:00: 00 [facility] H/O: hysterecto my H/O: hysterecto my Disease Active 08-25 00:00: 00 [facility] [id number] Allergic rhinitis, unspecifie d seasonalit y, unspecifie d trigger Problem [facility] [id number] Mental developmen carmen delay Problem [facility] [id number] History of hepatitis C Problem [facility] [id number] 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) Problem [facility] [id number] HIV disease Problem [facility] [id number] +5th digit eff 11/12/19*St age 1 chronic kidney disease Problem [facility] [id number] Chronic kidney disease, unspecifie d CKD stage Problem [facility] [id number] Essential hypertensi on Problem [facility] [id number] Chronic heart failure with preserved ejection fraction Problem [facility] [id number] Pulmonary emphysema, unspecifie d emphysema type Problem [facility] [id number] Mental disability Problem [facility] [id number] Lumbago with sciatica, right side Problem [facility] [id number] Lumbago with sciatica, left side Problem [facility] [id number] 07 On home O2 Problem [facility] [id number] Environmen carmen allergies Problem [facility] [id number] Vitamin D deficiency Problem [facility] [id number] Other chronic pain Problem [facility] [id number] Cardiac murmur Problem [facility] [id number] CHRIS (generaliz ed anxiety disorder) Problem [facility] [id number] Mixed hyperlipid emia Problem [facility] [id number] Seasonal allergies Problem [facility] Allergies, Adverse Reactions, Alerts Allergy Name Allergy Type Status Severity Reaction(s) Onset Date Inactive Date Treating Clinician Comments Source NO KNOWN ALLERGIE S Drug Class Active [facility] Social History Social Habit Start Date Stop Date Quantity Comments Source Gender identity [facility] Sexual orientation [facility] History of Tobacco Use Current Smoker [facility] Sex Assigned At [facility] Alcoholic beverage intake 2023-05-16 00:00:00 2023-05-16 00:00:00 Current non-drinker of alcohol (finding) [facility] Alcohol intake 2023-05-16 00:00:00 2023-05-16 00:00:00 Current non-drinker of alcohol (finding) [facility] Exposure to SARS-CoV-2 (event) 2022-03-24 00:00:00 2022-04-03 13:07:00 Not sure [facility] History of Social function 2022-04-03 00:00:00 2022-04-03 00:00:00 [facility] Tobacco use and exposure 2022-04-03 00:00:00 2022-04-03 00:00:00 Smokeless tobacco non-user [facility] Smoking Status Start Date Stop Date Source Current Smoker 2023-11-11 00:00:00 [facility] Never smoked tobacco [facility] Medications Ordered Medication Name Filled Medication Name Start Date Stop Date Current Medication? Ordering Clinician Indication Dosage Frequency Signature (SIG) Comments Components Source albuterol sulfate HFA 90 mcg/actuati on aerosol inhaler 2023-02 00:00: 00 Yes mcg/act uation Delfino Orta baclofen 5 mg tablet 2023-02 00:00: 00 Yes 1mg Delfino Orta duloxetine 30 mg capsule,del ayed release 2023-02 00:00: 00 Yes 1mg Delfino Orta ibuprofen 800 mg tablet 2023-02 2- 00:00: 00 Yes 1mg Delfino Orta ibuprofen 800 mg tablet 2023-02 2- 00:00: 00 Yes 1mg Delfino Orta triamcinolo ne acetonide 0.1 % topical cream 2023-02 2- 00:00: 00 Yes 1% Delfino Orta fluticasone propionate 50 mcg/actuati on nasal spray,suspe nsion 2023-02 2- 00:00: 00 Yes 2mcg/ac tuation Delfino Orta duloxetine 30 mg capsule,del ayed release 2023-02 00:00: 00 Yes 1mg Delfino Orta albuterol sulfate HFA 90 mcg/actuati on aerosol inhaler 2023-02- 00:00: 00 Yes mcg/act uation Delfino Orta Qvar RediHaler 80 mcg/actuati on HFA breath activated aerosol 2023-02 00:00: 00 Yes 12mcg/a ctuatio n Delfino Orta ibuprofen 800 mg tablet 2023-02 00:00: 00 Yes 1mg Delfino Orta Biktarvy 50 mg-200 mg-25 mg tablet 2023-02 1-08 00:00: 00 Yes mg Delfino Orta albuterol sulfate HFA 90 mcg/actuati on aerosol inhaler 2023-02 1-04 00:00: 00 Yes mcg/act uation Delfino Orta triamcinolo ne acetonide 0.1 % topical cream 2023-02 0-30 00:00: 00 Yes 1% Delfino Orta cetirizine 10 mg tablet 2023-02 0-17 00:00: 00 Yes 1mg Delfino Orta benzonatate 200 mg capsule 2023-02 0-17 00:00: 00 Yes 1mg Delfino Orta triamcinolo ne acetonide 0.1 % topical cream 2023-02 0-14 00:00: 00 Yes 1% Delfino Orta fluticasone propionate 50 mcg/actuati on nasal spray,suspe nsion 2023-02 0-14 00:00: 00 Yes 2mcg/ac tuation Delfino Orta duloxetine 30 mg capsule,del ayed release 2023-02 0-14 00:00: 00 Yes 1mg Delfino Orta albuterol sulfate HFA 90 mcg/actuati on aerosol inhaler 2023-02 0-08 00:00: 00 Yes mcg/act uation Delfino Orta Qvar RediHaler 80 mcg/actuati on HFA breath activated aerosol 2023-02 0- 00:00: 00 Yes 12mcg/a ctuatio n Delfino Orta baclofen 5 mg tablet 2023-02 0- 00:00: 00 Yes 1mg Delfino Orta duloxetine 30 mg capsule,del ayed release 2023-02 0-08 00:00: 00 Yes 1mg Delfino Orta Trelegy Ellipta 100-62.5-25 MCG/ACT Trelegy Ellipta 100-62.5-25 MCG/ACT 11-10 00:00: 00 No 1{puff} QD Trelegy Ellipta 100-62.5-2 5 MCG/ACT tiZANidine HCl 2 MG tiZANidine HCl 2 MG 11-10 00:00: 00 No QD tiZANidine HCl 2 MG Lidocaine 5 % Lidocaine 5 % 11-10 00:00: 00 No QD Lidocaine 5 % Gabapentin 300 MG Gabapentin 300 MG 11-10 00:00: 00 No 1{capsu le} QD Gabapentin 300 MG Kenalog (Triamcinol one) Kenalog (Triamcinol one) 11-10 00:00: 00 No 40mg [facility] baclofen 5 mg tablet 11-01 00:00: 00 Yes 1mg Delfino Orta ibuprofen 800 mg tablet 11-01 00:00: 00 Yes 1mg Delfino Orta duloxetine 30 mg capsule,del ayed release 11-01 00:00: 00 Yes 1mg Delfino Orta aspirin 81 mg tablet,ruchi yed release 10-15 00:00: 00 Yes mg Delfino Orta albuterol sulfate HFA 90 mcg/actuati on aerosol inhaler 10-10 00:00: 00 Yes mcg/act uation Delfino Orta triamcinolo ne acetonide 0.1 % topical cream 10-10 00:00: 00 Yes 1% Delfino Orta losartan 100 mg-hydrochl orothiazide 12.5 mg tablet 10-10 00:00: 00 Yes 1mg Delfino Orta baclofen 5 mg tablet 10-10 00:00: 00 Yes 1mg Delfino Orta melatonin 10 mg tablet 10-10 00:00: 00 Yes 1mg Delfino Orta fluticasone propionate 50 mcg/actuati on nasal spray,suspe nsion 10-10 00:00: 00 Yes 2mcg/ac tuation Delfino Orta baclofen 5 mg tablet 10-08 00:00: 00 Yes 1mg Delfino Orta duloxetine 30 mg capsule,del ayed release 10-08 00:00: 00 Yes 1mg Delfino Orta fluticasone propionate 50 mcg/actuati on nasal spray,suspe nsion 10-03 00:00: 00 Yes 2mcg/ac tuation Delfino Orta Biktarvy 50 mg-200 mg-25 mg tablet 09-30 00:00: 00 Yes mg Delfino Orta Qvar RediHaler 80 mcg/actuati on HFA breath activated aerosol 09-30 00:00: 00 Yes 12mcg/a ctuatio n Delfino Orta albuterol sulfate HFA 90 mcg/actuati on aerosol inhaler 09-23 00:00: 00 Yes mcg/act uation Delfino Orta losartan 100 mg-hydrochl orothiazide 12.5 mg tablet 09-23 00:00: 00 Yes 1mg Delfino Orta amlodipine 10 mg tablet 09-23 00:00: 00 Yes 1mg Delfino Orta baclofen 5 mg tablet 09-23 00:00: 00 Yes 1mg Delfino Orta trazodone 50 mg tablet 09-23 00:00: 00 Yes 12mg Delfino Orta atorvastati n 40 mg tablet 09-23 00:00: 00 Yes 1mg Delfino Orta albuterol sulfate HFA 90 mcg/actuati on aerosol inhaler 09-15 00:00: 00 Yes mcg/act uation Delfino Orta amlodipine 10 mg tablet 0 09-15 00:00: 00 Yes 1mg Delfino Orta losartan 100 mg-hydrochl orothiazide 12.5 mg tablet 09-15 00:00: 00 Yes 1mg Delfino Orta baclofen 5 mg tablet 09-15 00:00: 00 Yes 1mg Delfino Orta atorvastati n 40 mg tablet 09-15 00:00: 00 Yes 1mg Delfino Orta trazodone 50 mg tablet 09-15 00:00: 00 Yes 12mg Delfino Orta albuterol sulfate HFA 90 mcg/actuati on aerosol inhaler 09-09 00:00: 00 Yes mcg/act uation Delfino Orta amlodipine 10 mg tablet 09-09 00:00: 00 Yes 1mg Delfino Orta losartan 100 mg-hydrochl orothiazide 12.5 mg tablet 09-09 00:00: 00 Yes 1mg Delfino Orta baclofen 5 mg tablet 09-09 00:00: 00 Yes 1mg Delfino Orta trazodone 50 mg tablet 09-09 00:00: 00 Yes 12mg Delfino Orta atorvastati n 40 mg tablet 09-09 00:00: 00 Yes 1mg Delfino Orta buprenorphi ne 4 mg-naloxone 1 mg sublingual film 09-09 00:00: 00 Yes 1mg Delfino Orta losartan [...] 1mg Delfino Orta baclofen 5 mg tablet 08-21 00:00: 00 Yes 1mg Delfino Orta aspirin [...] 05-20 00:00: 00 06-20 04:59 :00 No [id number] 81mg Take 1 tablet by mouth in the morning for 30 days. [facility] predniSONE 20 mg tablet 05-20 00:00: 00 05-24 04:59 :00 No [id number] 40mg Take 2 tablets by mouth in the morning for 3 days. [facility] ALPRAZOLAM ORAL 05-19 16:42: 32 Yes Take by mouth. [facility] celecoxib 400 mg capsule 05-19 16:42: 32 Yes 400mg Take 1 capsule by mouth in the morning. [facility] atorvastati n (LIPITOR) tablet 40 mg 05-19 02:00: 00 Yes 40mg 40 mg, Oral, QHS, First dose on 05/19/23 at 2100, Until Discontinu ed, Routine [facility] aspirin 81 mg tablet,ruchi yed release 05-19 00:00: 00 Yes mg Delfino Orta PREDNISONE 20MG 05-19 00:00: 00 Yes Delfino Orta budesonide 0.5 mg/2 mL nebulizer solution 05-19 00:00: 00 06-19 04:59 :00 No [id number] 1mg Inhale 4 mL every 12 (twelve) hours for 30 days. [facility] aspirin EC tablet 81 mg 05-18 20:45: 00 Yes 81mg 81 mg, Oral, DAILY, First dose on 05/19/23 at 1545, Until Discontinu ed, Routine [facility] predniSONE (DELTASONE) tablet 40 mg 05-18 14:00: 00 Yes 40mg 40 mg, Oral, DAILY, First dose on 05/19/23 at 0900, Until Discontinu ed, Routine [facility] methylpredn isolone sod succ (SOLU-MEDRO L) injection 125 mg 05-17 10:00: 00 05-17 14:54 :19 No 125mg 125 mg, Slow IV Push, Q6H ABX, First dose on 05/18/23 at 0500, Until Discontinu ed, Routine [facility] budesonide (PULMICORT RESPULE) nebulizer solution 1 mg 05-17 07:00: 00 Yes 1mg 1 mg, Inhalation , Q12H, First dose on 05/18/23 at 0200, Until Discontinu ed, Routine
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
Gayatri son for non-formul fanta use: Treatment failure with formulary alternativ e [facility] sulfamethox azole-trime thoprim (BACTRIM DS) 800-160 mg per tablet 1 tablet 05-17 01:00: 00 Yes 1{tbl} 1 tablet, Oral, QMON/SAT/ RI AT 1999, First dose on Sat05/17/23 at 1999, Until Discontinu ed, Routine
Reason for Anti-Infec tive: Empiric Non-Surgic al Prophylaxi s
Durat ion of therapy: 5 days [facility] predniSONE 20 mg tablet 05-17 00:00: 00 05-21 04:59 :00 No [id number] 20mg Take 1 tablet by mouth in the morning for 3 days. [facility] NaCl 0.9% (NS) IV infusion 1,000 mL 05-16 21:00: 00 Yes 1000mL at 75 mL/hr, IV Infusion, CONTINUOUS , Starting on Sat05/17/23 at 1600, Until Discontinu ed, Routine [facility] magnesium sulfate in water 2 gram/50 mL (4 %) infusion 2 g 05-16 18:45: 00 05-16 19:50 :00 No 2g 2 g, IV Piggyback, Administer over 60 Minutes, ONCE, 1 dose, On Sat05/17/23 at 1345, Routine [facility] losartan (COZAAR) tablet 100 mg 05-16 14:00: 00 Yes 100mg 100 mg, Oral, DAILY, First dose on Sat05/17/23 at 0900, Until Discontinu ed, Routine [facility] fluconazole (DIFLUCAN) tablet 200 mg 05-16 14:00: 00 Yes 200mg 200 mg, Oral, DAILY, First dose on Sat05/17/23 at 0900, Until Discontinu ed, ANTONIETTA
Re ason for Anti-Infec tive: Empiric Non-Surgic al Prophylaxi s
Durat ion of therapy: 5 days [facility] bictegrav-e mtricit-ten ofov ala (BIKTARVY) 50-200-25 mg tablet 1 tablet 05-16 14:00: 00 Yes 1{tbl} 1 tablet, Oral, DAILY, First dose on Sat05/17/23 at 0900, Until Discontinu ed, Routine
Medicatio n Name: bictegrav/ emtricit/t onofov ala
[place] gth of Therapy: Indefinite
Facult y member approving non-formul fanta medication : LEFTY ABREU
Gayatri son for non-formul fanta use: Patient supplied medication
Specif ic indication for non-formul fanta use: hiv
Use patient home supply? Yes
Dos age Form: Capsule [facility] predniSONE (DELTASONE) tablet 40 mg 05-16 14:00: 00 05-17 09:48 :38 No 40mg 40 mg, Oral, DAILY, 5 doses, First dose on Sat05/17/23 at 0900, Last dose on Sat05/21/23 at 0900, Routine [facility] metoprolol tartrate (LOPRESSOR) tablet 12.5 mg 05-16 13:00: 00 Yes 12.5mg 12.5 mg, Oral, BID, First dose on Sat05/17/23 at 0800, Until Discontinu ed, Routine [facility] fluticasone propionate (FLOVENT HFA) 220 mcg/actuati on inhaler 2 Puff 05-16 13:00: 00 Yes 2{puff} 2 Puff, Inhalation , Q12H, First dose on Sat05/17/23 at 0800, Until Discontinu ed, Routine
Is this order for a patient with suspected or confirmed COVID-19 infection? No [facility] cetirizine (ZYRTEC) tablet 10 mg 05-16 03:00: 00 Yes 10mg 10 mg, Oral, QHS, First dose on Sat05/16/23 at 2200, Until Discontinu ed [facility] amLODIPine (NORVASC) tablet 10 mg 05-16 03:00: 00 Yes 10mg 10 mg, Oral, DAILY, First dose on Farrah 05/16/23 at 2200, Until Discontinu ed, Routine [facility] heparin (porcine) injection 5,000 Units 05-16 03:00: 00 Yes 5000U 5,000 Units, Subcutaneo us, Q8H, First dose on Farrah 05/16/23 at 2200, Until Discontinu ed, Routine [facility] albuterol (VENTOLIN) inhaler 2 Puff 05-16 02:35: 18 Yes 2{puff} 2 Puff, Inhalation , Q6HPRN, Starting on Farrah 05/16/23 at 2135, Until Discontinu ed, Routine, Wheezing, Shortness of Breath [facility] ipratropium -albuteroL (DUONEB) 0.5 mg-3 mg(2.5 mg base)/3 mL nebulizer solution 3 mL 05-15 21:00: 00 05-15 18:01 :47 No 3mL 3 mL, Inhalation , QID, First dose on Farrah 05/16/23 at 1600, Until Discontinu ed, Routine [facility] azithromyci n (ZITHROMAX) 500 mg in NaCl [...] y
Durat ion of therapy: 72 hours [facility] magnesium sulfate in water 2 gram/50 mL (4 %) infusion 2 g 05-15 19:45: 00 05-15 19:54 :00 No 2g 2 g, IV Piggyback, Administer over 60 Minutes, ONCE, 1 dose, On Farrah 05/16/23 at 1445, Routine [facility] albuterol (PROVENTIL) 2.5 mg /3 mL (0.083 %) nebulizer solution 7.5 mg 05-15 19:45: 00 05-15 18:54 :00 No 7.5mg 7.5 mg, Inhalation , ONCE, 1 dose, On Farrah 05/16/23 at 1445, ANTONIETTA [facility] acetaminoph en (TYLENOL) tablet 650 mg 05-15 19:30: 37 Yes 650mg 650 mg, Oral, Q6HPRN, Starting on Farrah 05/16/23 at 1430, Until Discontinu ed, Routine, Pain (scale 1-3) [facility] NaCl 0.9% (NS) bolus infusion 1,000 mL 05-15 18:30: 00 05-15 19:34 :00 No 1000mL at 999 mL/hr, 1,000 mL, IV Infusion, ONCE, 1 dose, On Farrah 05/16/23 at 1330, ANTONIETTA [facility] budesonide (PULMICORT RESPULE) nebulizer solution 1 mg 05-15 18:15: 00 05-15 17:40 :00 No 1mg 1 mg, Inhalation , ONCE, 1 dose, On Farrah 05/16/23 at 1315, Routine [facility] albuterol (PROVENTIL) 2.5 mg /3 mL (0.083 %) nebulizer solution 5 mg 05-15 18:00: 00 05-15 18:03 :00 No 5mg 5 mg, Inhalation , ONCE, 1 dose, On Farrah 05/16/23 at 1315, STAT [facility] methylpredn isolone sod succ (SOLU-MEDRO L) injection 125 mg 05-15 17:31: 00 05-15 17:41 :00 No 125mg 125 mg, Intravenou s, ONCE, 1 dose, On Farrah 05/16/23 at 1245, ANTONIETTA [facility] sodium chloride (NS) injection 5 mL 05-15 17:25: 52 Yes 5mL 5 mL, Intravenou s, PRN, Starting on Farrah 05/16/23 at 1225, Until Discontinu ed, Routine, IV line flushing [facility] IBUPROFEN 600MG 05-12 00:00: 00 Yes 600 [...] 00 06-25 00:00 :00 No 1 Delfino Orat TAKE 1 TABLET BID NEEDED 04-17 00:00: [...] 04-02 00:00: 00 06-25 00:00 :00 No [id number] Delfino Orta TAKE 1 TABLET DAILY. 04-02 00:00: 00 06-25 00:00 :00 No 20 Delfino Orta naproxen (NAPROSYN) tablet 250 mg 03-20 23:00: 00 Yes 250mg 250 mg, Oral, BID MEALS, First dose on Sat03/20/23 at 1700, Until Discontinu ed, Routine [facility] albuterol sulfate HFA 90 mcg/actuati on aerosol inhaler 03-20 00:00: 00 Yes mcg/act uation Delfino Orta TAKE 1 TABLET BY MOUTH TWICE DAILY FOR 20 DOSES TAKE IN THE MORNINGS AND THE EVENINGS 03-20 00:00: 00 Yes Delfino Orta hydrocortis one 1%-nystatin -zinc oxide Oint ointment 03-20 00:00: 00 Yes [id number] Apply to affected area(s) as needed for Dermatitis /Rash. [facility] albuterol 90 mcg/actuati on inhaler 03-20 00:00: 00 Yes [id number] 2{puff} Inhale 2 Puffs every 6 (six) hours as needed for Wheezing or Shortness of Breath. [facility] naproxen 250 mg tablet 03-20 00:00: 00 03-31 05:59 :00 No [id number] 250mg Take 1 tablet by mouth in the morning and 1 tablet in the evening. Take with meals. Do all this for 20 doses. [facility] Qvar RediHaler 80 mcg/actuati on HFA breath activated aerosol 03-07 00:00: 00 Yes mcg/act uation Delfino Orta TAKE 1 TABLET DAILY. 03-07 00:00: 00 Yes 10 Delfino Orta TAKE 1 TABLET DAILY. 03-07 00:00: 00 Yes [id number] Delfino Orta TAKE 1 TABLET BY MOUTH [...] 45 Delfino Orta ATORVASTATI N 40MG 2022-02 00:00: 00 Yes Delfino Orta CITALOPRAM 20MG 2022-02 00:00: 00 Yes Delfino Orta AMLODIPINE 10MG 2022-02 00:00: 00 Yes Delfino Orta LOSARTAN/HC T 100-12.5 2022-02 00:00: 00 Yes Delfino Orta sulfamethox azole 800 mg-trimetho prim 160 mg tablet 11-01 00:00: 00 Yes mg Delfino Orta INHALE 1 TO 2 PUFFS BY MOUTH EVERY 6 HOURS NEEDED. 11-01 00:00: 00 06-25 00:00 :00 No [id number] Delfino Orta TAKE 1 TO 2 TABLETS [...] 00:00: 00 Yes mcg/act uation Delfino Orta INHALE 2 PUFFS EVERY 4 HOURS NEEDED FOR WHEEZING OR SHORTNESS OF BREATH 09-17 00:00: 00 Yes Delfino Orta albuterol 90 mcg/actuati on inhaler 09-17 00:00: 00 Yes [id number] 2{puff} Inhale 2 Puffs every 4 (four) hours as needed for Wheezing or Shortness of Breath. [facility] IBUPROFEN 600MG 09-17 00:00: 00 06-25 00:00 :00 No Delfino Orta TAKE 1 TABLET DAILY. 09-12 00:00: 00 06-25 00:00 :00 No [id number] Delfino Orta TAKE 1 TABLET DAILY. 09-12 00:00: 00 06-25 00:00 :00 No 10 Delfino Orta 1-2 PUFFS Q 12 HOURS 09-12 00:00: 00 06-25 00:00 :00 No 80 Delfino Orta TAKE 1 TABLET BY MOUTH DAILY 09-12 00:00: 00 06-25 00:00 :00 No 40 Delfino Orta TAKE 1 TABLET DAILY. 09-12 00:00: 00 06-25 00:00 :00 No 10 Delfino Endy Orta INHALE 1 TO 2 PUFFS BY MOUTH EVERY 6 HOURS NEEDED. 09-12 00:00: 00 06-25 00:00 :00 No [id number] Delfino Endy Orta INHALE 2 PUFFS TWICE DAILY. RINSE MOUTH AFTER USE. 09-12 00:00: 00 06-25 00:00 :00 No 220 Delfino Endy Orta TAKE 1 TO 2 TABLETS AT BEDTIME 09-12 00:00: 00 06-25 00:00 :00 No 25 Delfino F You ALBUTEROL PA HFA 200 INH 09-06 00:00: 00 Yes Delfino Endy Orta TAKE 1 TABLET DAILY. 08-02 00:00: 00 06-25 00:00 :00 No 75 Delfino Endy Orta TAKE 1 TO 2 TABLETS AT BEDTIME 08-01 00:00: 00 06-25 00:00 :00 No 25 Delfino F You 1-2 PUFFS Q 12 HOURS 07-05 00:00: 00 06-25 00:00 :00 No 80 Delfino F You INHALE 1 TO 2 PUFFS BY MOUTH EVERY 6 HOURS NEEDED. 07-04 00:00: 00 06-25 00:00 :00 No [id number] Delfino Endy Orta TAKE 1 TABLET DAILY. 07-04 00:00: 00 06-25 00:00 :00 No 10 Delfino Endy Orta TAKE 1 TABLET BY MOUTH DAILY 07-04 00:00: 00 06-25 00:00 :00 No 40 Delfino F You TAKE 1 TABLET AT BEDTIME. 07-04 00:00: 00 06-25 00:00 :00 No 45 Delfino Endy Orta INHALE 2 PUFFS TWICE DAILY. RINSE MOUTH AFTER USE. 07-04 00:00: 00 06-25 00:00 :00 No 220 Delfino Endy Orta TAKE 1 TABLET DAILY. 07-04 00:00: 00 06-25 00:00 :00 No [id number] Delfino F You TAKE 1 TABLET DAILY. 07-04 00:00: 00 06-25 00:00 :00 No 20 Delfino Orta TAKE 1 TABLET EVERY 8 HOURS WITH FOOD NEEDED. 24 00:00: 00 06-25 00:00 :00 No 800 Delfino Orta TAKE 1 TABLET BY MOUTH DAILY 06-27 00:00: 00 06-25 00:00 :00 No 40 Delfino Orta ALBUTEROL PA HFA 200 INH - 00:00: 00 06-25 00:00 :00 No Delfino Orta NITROFUR MON 100MG 05-15 00:00: 00 06-25 00:00 :00 No Delfino Orta TAKE 1 TABLET DAILY. 04-19 00:00: 00 06-25 00:00 :00 No [id number] Delfino Orta TAKE 1 TABLET DAILY. 04-19 00:00: 00 06-25 00:00 :00 No 20 Delfino Orta AMLODIPINE BESYLATE 10 MG TABS 04-19 00:00: 00 06-25 00:00 :00 No Delfino Orta IBUPROFEN 600 MG TABS 04-19 00:00: 00 06-25 00:00 :00 No Delfino Orta CHLORHEXIDI NE GLUCONATE 0.12 % SOLN 3- 00:00: 00 06-25 00:00 :00 No Delfino Orta bictegrav-e mtricit-ten ofov ala 50-200-25 mg tablet 04-03 00:00: 00 Yes [id number] 1{tbl} Take 1 tablet by mouth in the morning. [facility] fluconazole 200 mg tablet 04-03 00:00: 00 Yes [id number] 200mg Take 1 tablet by mouth in the morning. [facility] sulfamethox azole-trime thoprim 800-160 mg per tablet 04-03 00:00: 00 Yes [id number] 1{tbl} Take 1 tablet by mouth in the morning. [facility] sulfamethox azole 800 mg-trimetho prim 160 mg tablet 04-03 00:00: 00 06-25 00:00 :00 No Delfino Orta TAKE 1 TABLET BY MOUTH IN THE MORNING 04-03 00:00: 00 06-25 00:00 :00 No Delfino Orta TAKE 1 TABLET BY MOUTH IN THE MORNING 04-03 00:00: 00 06-25 00:00 :00 No Delfino Orta TAKE 1 TABLET ONCE DAILY BEFORE MEALS 04-02 00:00: 00 06-25 00:00 :00 No 40 Delfino Orta trazodone 50 mg tablet 04-02 00:00: 00 06-25 00:00 :00 No Delfino Orta INHALE 1 TO 2 PUFFS BY MOUTH EVERY 6 HOURS NEEDED. 03-30 00:00: 00 06-25 00:00 :00 No [id number] Delfino Orta atorvastati n 40 mg tablet 03-30 00:00: 00 06-25 00:00 :00 No Delfino Orta amlodipine 10 mg tablet 03-29 00:00: 00 06-25 00:00 :00 No Delfino [...] No Delfino Orta FLUTICASONE 50MCG RX SPR 1-26 00:00: 00 06-25 00:00 :00 No Delfino Orta MELOXICAM 7.5MG 03-08 00:00: 00 06-25 00:00 :00 No Delfino Orta CHLORHEX GLU 0.12% ESTRELLA 03-08 00:00: 00 06-25 00:00 :00 No Delfino Orta INHALE 1 TO 2 PUFFS BY MOUTH EVERY 6 HOURS NEEDED. 03-06 00:00: 00 06-25 00:00 :00 No [id number] Delfino Orta APPLY OINTMENT 3 TO 4 TIMES PER DAY TO AFFECTED AREA FOR 14 DAYS 02-28 00:00: 00 No 20 APPLY OINTMENT 3 TO 4 TIMES PER DAY TO AFFECTED AREA FOR 14 DAYS 02-28 00:00: 00 06-25 00:00 :00 No 20 Delfino Orta TAKE 1 CAPSULE BY MOUTH EVERY 8 HOURS NEEDED FOR COUGH 02-13 00:00: 00 No 100 TAKE 1 CAPSULE BY MOUTH EVERY 8 HOURS NEEDED FOR COUGH 02-13 00:00: 00 06-25 00:00 :00 No Delfino [...] VANCOMYCIN HYDROCHLORI DE 250 MG CAPS 2021-02 2-14 00:00: 00 No Dose Unknown 2021-02 214 00:00: 00 No Dose Unknown 2021-02 214 00:00: 00 No Dose Unknown 2021-02 2-14 00:00: 00 No Dose Unknown 2021-02 2 00:00: 00 No TRAMADOL HCL 50 MG TABS 2021-02 2- 00:00: 00 No IBUPROFEN 400MG TAB 2021-02 2 00:00: 00 No TAKE 1 TABLET BY MOUTH TWICE A DAY FOR 7 DAYS 2021-02 2 00:00: 00 No TAKE 1 TABLET BY [...] Dose Unknown 2021-02 00:00: 00 No NYSTATIN [id number] ROOPA 2021-02 00:00: 00 No CITALOPRAM HYDROBROMID E 20MG TAB 2021-02 00:00: 00 No TAKE 1 TABLET DAILY. 2021-02 00:00: 00 06-25 00:00 :00 No Delfino Orta TAKE 1 TABLET AT BEDTIME. 2021-02 00:00: 00 06-25 00:00 :00 No Delfion Orta APPLY TO AFFECTED AREA ON SKIN TWICE A DAY FOR 5 DAYS 2021-02 00:00: 00 06-25 00:00 :00 No Delfino Orta FLOVENT HFA 220MCG/A INH 2021-02 2 00:00: 00 06-25 00:00 :00 No Delfino Orta ATORVASTATI N CALCIUM 40 MG TABS 2021-02 00:00: 00 06-25 00:00 :00 Eva Orta CYCLOBENZAP RINE HYDROCHLORI DE 5 MG TABS 2021-02 00:00: 00 06-25 00:00 :00 No Delfino Orta TIZANIDINE HYDROCHLORI DE 4MG TAB 2021-02 2 00:00: 00 06-25 00:00 :00 No Delfino Orta LOSARTAN POTASSIUM/H YDROCHLOROT HIAZ YASMIN 100-12.5 MG TABS 2021-02 00:00: 00 06-25 00:00 :00 No Delfino Orta FLUCONAZOLE 150MG TAB 2021-02 00:00: 00 06-25 00:00 :00 No Delfino Orta AMOXICILLIN 875 MG TABS 2021-02 00:00: 00 06-25 00:00 :00 No Delfino Orta VANCOMYCIN HYDROCHLORI DE 250 MG CAPS 2021-02 00:00: 00 06-25 00:00 :00 No Delfino Orta Dose Unknown 2021-02 00:00: 00 06-25 00:00 :00 No Delfino Orta Dose Unknown 2021-02 00:00: 00 06-25 00:00 :00 No Delfino Orta Dose Unknown 2021-02 00:00: 00 06-25 00:00 :00 No Delfino Orta Dose Unknown 2021-02 00:00: 00 06-25 00:00 :00 Eva Orta TRAMADOL HCL 50 MG TABS 2021-02 00:00: 00 06-25 00:00 :00 No Delfino Orta IBUPROFEN 400MG TAB 2021-02 00:00: 00 06-25 00:00 :00 Eva Orta TAKE 1 TABLET BY MOUTH TWICE A DAY FOR 7 DAYS 2021-02 00:00: 00 06-25 00:00 :00 Eva Orta TAKE 1 TABLET 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 2021-02 00:00: 00 06-25 00:00 :00 No Delfino Orta Dose Unknown 2021-02 00:00: 00 06-25 00:00 :00 No Delfino F You Dose Unknown 2021-02 00:00: 00 06-25 00:00 :00 No Delfino F You Dose Unknown 2021-02 00:00: 00 06-25 00:00 :00 No Delfino Orta MIRTAZAPINE 15MG TAB 2021-02 00:00: 00 06-25 00:00 :00 No Delfino F You Dose Unknown 2021-02 00:00: 00 06-25 00:00 :00 No Delfino F You Dose Unknown 2021-02 00:00: 00 06-25 00:00 :00 No Delfino F You Dose Unknown 2021-02 00:00: 00 06-25 00:00 :00 No Delfino F You Dose Unknown 2021-02 00:00: 00 06-25 00:00 :00 No Delfino Orta NYSTATIN [id number] ROOPA 2021-02 00:00: 00 06-25 00:00 :00 No Delfino Orta CITALOPRAM HYDROBROMID E 20MG TAB 2021-02 00:00: 00 06-25 00:00 :00 No Delfino Orta Dose Unknown 2021-02 00:00: 00 06-25 00:00 :00 No Delfino Orta TAKE 1 TABLET AT BEDTIME NEEDED. 2021-02 00:00: 00 No 50unit FLUTICASONE PROPIONATE 50 MCG/ACT SUSP 2021-02 00:00: 00 No 50 TAKE 1 TABLET BID NEEDED 2021-02 00:00: 00 No 600 ALBUTEROL SULFATE HFA 108 (90 Base) MCG/ACT AERS 2021-02 00:00: 00 No TAKE 1 TABLET AT BEDTIME NEEDED. 2021-02 00:00: 00 06-25 00:00 :00 No 50unit Delfino Orta FLUTICASONE PROPIONATE 50 MCG/ACT SUSP 2021-02 2 00:00: 00 06-25 00:00 :00 No Delfino Orta TAKE 1 TABLET BID NEEDED 2021-02 00:00: 00 06-25 00:00 :00 No 600 Delfino Orta ALBUTEROL SULFATE HFA 108 (90 Base) MCG/ACT AERS 2021-02 00:00: 00 06-25 00:00 :00 No Delfino Orta TAKE 1 TABLET DAILY. 11-06 00:00: 00 06-25 00:00 :00 No 10 Delfino Orta ALLOPURINOL 100 MG TABS - 00:00: 00 06-25 00:00 :00 No Delfino Orta AMLODIPINE BESYLATE 10MG TAB 0 8-18 00:00: 00 Yes Delfino Orta AMLODIPINE BESYLATE 10MG TAB 0 8-18 00:00: 00 No AMLODIPINE BESYLATE 10MG TAB 0 8-18 00:00: 00 No AMLODIPINE BESYLATE 10MG TAB 0 8-18 00:00: 00 No TAKE BY MOUTH 6 MILLILITERS 4 TIMES A DAY FOR 14 DAYS 0 7-20 00:00: 00 Yes Delfino Orta FLUTICASONE PROPIONATE 50MCG RX SPR 0 7-20 00:00: 00 Yes Delfino Orta TAKE BY MOUTH 6 MILLILITERS 4 TIMES A DAY FOR 14 DAYS 0 7-20 00:00: 00 No Dose Unknown 0 -20 00:00: 00 No TAKE BY MOUTH 6 MILLILITERS 4 TIMES A DAY FOR 14 DAYS 0 7-20 00:00: 00 No FLUTICASONE PROPIONATE 50MCG RX SPR 0 7-20 00:00: 00 No TAKE BY MOUTH 6 MILLILITERS 4 TIMES A DAY FOR 14 DAYS 0 7-20 00:00: 00 No Dose Unknown 0 -20 00:00: 00 No losartan 100 mg-hydrochl orothiazide 12.5 mg tablet 0 6-27 00:00: 00 Yes 1mg Delfino Orta atorvastati [...] 00 Yes 1mcg/ac tuation Delfino Orta &lt 08-07 00:00: 00 Yes Delfino Orta &lt 0 08-07 00:00: 00 Yes Delfino Orta &lt 0 08-07 00:00: 00 Yes Delfino Orta &lt 0 08-07 00:00: 00 Yes Delfino Orta losartan 100 mg-hydrochl orothiazide 12.5 mg tablet 08-07 00:00: 00 No 1mg atorvastati n 40 mg tablet 08-07 00:00: 00 No 1mg amlodipine 10 mg tablet 08-07 00:00: 00 No 1mg allopurinol 100 mg tablet 08-07 00:00: 00 No 1mg cyclobenzap rine 5 mg tablet 08-07 00:00: 00 No 1mg ibuprofen 400 mg tablet 08-07 00:00: 00 No 1mg fluticasone propionate 50 mcg/actuati on nasal spray,suspe nsion 08-07 00:00: 00 No 1mcg/ac tuation &lt 0 08-07 00:00: 00 No &lt 0 08-07 00:00: 00 No &lt 0 08-07 00:00: 00 No &lt 0 08-07 00:00: 00 No TAKE 1 TABLET DAILY. 08-07 00:00: 00 No losartan 100 mg-hydrochl [...] No &lt 2021-0 08-07 00:00: 00 No losartan 100 mg-hydrochl orothiazide 12.5 mg tablet 08-07 00:00: 00 No 1mg atorvastati n 40 mg tablet 08-07 00:00: 00 No 1mg amlodipine 10 mg tablet 08-07 00:00: 00 No 1mg allopurinol 100 mg tablet 08-07 00:00: 00 No 1mg cyclobenzap rine [...] 00 06-25 00:00 :00 No 400 Delfino Orta &lt 2022-0 08-04 00:00: 00 Yes Delfino Orta &lt 2022-0 08-04 00:00: 00 No &lt 2022-0 08-04 00:00: 00 No &lt 2022-0 08-04 00:00: 00 No mirtazapine 45 mg tablet 2021-0 08-02 00:00: 00 Yes 1mg Delfino Orta mirtazapine 45 mg tablet 0 08-02 00:00: 00 No 1mg TAKE 1 TABLET AT BEDTIME. 2021-0 08-02 00:00: 00 No mirtazapine 45 mg tablet 2021-0 08-02 00:00: 00 No 1mg &lt 2022-0 07-28 00:00: 00 Yes Delfino Orta &lt 2022-0 07-28 00:00: 00 Yes Delfino Orta &lt 2022-0 07-28 00:00: 00 No &lt 2022-0 07-28 00:00: 00 No &lt 2022-0 07-28 00:00: 00 No &lt 2022-0 07-28 00:00: 00 No &lt 2022-0 07-28 00:00: 00 No &lt 2022-0 07-28 00:00: 00 No imiquimod 3.75 % topical cream in a pump 0 07-03 00:00: 00 Yes 1% Delfino Orta fluconazole 150 mg tablet 0 07-03 00:00: 00 Yes 1mg Delfino Orta fluticasone propionate 50 mcg/actuati on nasal spray,suspe nsion 0 07-03 00:00: 00 Yes 1mcg/ac tuation Delfino Orta imiquimod 3.75 % topical cream in a pump 07-03 00:00: 00 No 1% fluconazole 150 mg tablet 07-03 00:00: 00 No 1mg fluticasone propionate 50 mcg/actuati on nasal spray,suspe nsion 0 07-03 00:00: 00 No 1mcg/ac tuation Dose [...] 07-03 00:00: 00 06-25 00:00 :00 No [id number] Delfino Orta sulfamethox azole-trime thoprim 800-160 mg per tablet 06-15 00:00: 00 04-03 00:00 :00 No [id number] 1{tbl} Take 1 tablet by mouth daily. [facility] ALPRAZOLAM ORAL 06-14 17:22: 53 Yes Take by mouth. [facility] efavirenz 600 mg tablet 06-14 00:00: 00 Yes [id number] 600mg Take 1 tablet by mouth daily. [facility] metoprolol tartrate 25 mg tablet 06-14 00:00: 00 Yes [id number] 12.5mg Take 0.5 tablets by mouth 2 (two) times daily. [facility] nystatin 100,000 unit/mL suspension 06-14 00:00: 00 Yes [id number] Take 5 mL by mouth 4 (four) times daily. [facility] amoxicillin -clavulanat e 875-125 mg per tablet 06-14 00:00: 00 04-03 00:00 :00 No [id number] 1{tbl} Take 1 tablet by mouth every 12 (twelve) hours. [facility] lamiVUDine 150 mg tablet 06-14 00:00: 00 04-03 00:00 :00 No [id number] 150mg Take 1 tablet by mouth 2 (two) times daily. [facility] ProAir HFA 90 mcg/actuati on aerosol inhaler 05-22 00:00: 00 Yes 2mcg/ac tuation Delfino Orta atorvastati n 40 mg tablet 05-22 00:00: 00 Yes 1mg Delfino Orta amlodipine 10 mg tablet - 00:00: 00 Yes 1mg Delfino Orta losartan 100 mg tablet - 00:00: 00 Yes 1mg Delfino Orta Epzicom 600 mg-300 mg tablet - 00:00: 00 Yes 1mg Delfino Orta citalopram 20 mg tablet - 00:00: 00 Yes 1mg Delfino Orta loratadine 10 mg tablet - 00:00: 00 Yes 1mg Delfino Orta allopurinol 100 mg tablet - 00:00: 00 Yes 1mg Delfino Orta cyclobenzap rine 5 mg tablet - 00:00: 00 Yes 1mg Delfino Orta mirtazapine 45 mg tablet - 00:00: 00 Yes 1mg Delfino rOta fluticasone propionate 50 mcg/actuati on nasal spray,suspe nsion - 00:00: 00 Yes 1mcg/ac tuation Delfino Orta ProAir HFA 90 mcg/actuati on aerosol inhaler 05-22 00:00: 00 No 2mcg/ac tuation atorvastati n 40 mg tablet 05-22 00:00: 00 No 1mg amlodipine 10 mg tablet 05-22 00:00: 00 No 1mg losartan 100 mg tablet - 00:00: 00 No 1mg Epzicom 600 mg-300 mg tablet - 00:00: 00 No 1mg citalopram 20 mg tablet - 00:00: 00 No 1mg loratadine 10 mg tablet - 00:00: 00 No 1mg allopurinol 100 mg tablet - 00:00: 00 No 1mg cyclobenzap rine 5 mg tablet - 00:00: 00 No 1mg mirtazapine 45 mg tablet 0 4- 00:00: 00 No 1mg fluticasone propionate 50 mcg/actuati on nasal spray,suspe nsion 05-22 00:00: 00 No 1mcg/ac tuation Dose Unknown - 00:00: 00 No atorvastati n 40 mg tablet - 00:00: 00 No 1mg amlodipine 10 mg tablet 05-22 00:00: 00 No 1mg allopurinol 100 mg tablet - 00:00: 00 No 1mg mirtazapine 45 mg tablet 05-22 00:00: 00 No 1mg Dose Unknown 05-22 00:00: 00 No Dose Unknown 05-22 00:00: 00 No Dose Unknown 05-22 00:00: 00 No Dose Unknown 05-22 00:00: 00 No Dose Unknown 05-22 00:00: 00 No fluticasone propionate 50 mcg/actuati on nasal spray,suspe nsion 05-22 00:00: 00 No 1mcg/ac tuation ProAir HFA 90 mcg/actuati on aerosol inhaler 05-22 00:00: 00 No 2mcg/ac tuation atorvastati n [...] 00 No 1mg allopurinol 100 mg tablet - 00:00: 00 No 1mg cyclobenzap rine 5 mg tablet - 00:00: 00 No 1mg mirtazapine 45 mg tablet 4- 00:00: 00 No 1mg fluticasone propionate 50 mcg/actuati on nasal spray,suspe nsion - 00:00: 00 No 1mcg/ac tuation TRIAMCINOLO NE ACETONIDE 0.1% CRE 2022-0 4-01 00:00: 00 202- 05-15 00:00 :00 No 100 Delfino Orta Dose Unknown 2022-0 3-23 00:00: 00 Yes Delfino Orta Dose Unknown 2022-0 3-23 00:00: 00 Yes Delfino Orta Dose Unknown 2022-0 3-23 00:00: 00 Yes Delfino Orta Dose Unknown 2022-0 3-23 00:00: 00 No [...] HFA 220MCG/A INH 2022-0 3-23 00:00: 00 05-15 00:00 :00 No [id number] Delfino Orta Dose Unknown 2022-0 3-21 00:00: [...] 2022-0 3-15 00:00: 00 No Dose Unknown 0 3-15 00:00: 00 No Dose Unknown 0 3-15 00:00: 00 No Dose Unknown 0 3-15 00:00: 00 No Dose Unknown 0 3-15 00:00: 00 No Dose Unknown 0 3-15 00:00: 00 No Dose Unknown 0 1-26 00:00: 00 Yes Delfino Orta fluticasone propionate 50 mcg/actuati on nasal spray,suspe nsion 0 - 00:00: 00 Yes 1mcg/ac tuation Delfino Orta Dose Unknown 0 03-08 00:00: 00 No fluticasone propionate 50 mcg/actuati on nasal spray,suspe nsion 0 03-08 00:00: 00 No 1mcg/ac tuation Dose Unknown 0 03-08 00:00: 00 No fluticasone propionate 50 mcg/actuati on nasal spray,suspe nsion 0 03-08 00:00: 00 No 1mcg/ac tuation Dose Unknown 0 03-08 00:00: 00 No fluticasone propionate 50 mcg/actuati on nasal spray,suspe nsion 0 03-08 00:00: 00 No 1mcg/ac tuation sulfamethox azole 800 mg-trimetho prim 160 mg tablet 2020-02 00:00: 00 Yes 1mg Delfino Orta sulfamethox azole 800 mg-trimetho prim 160 mg tablet 2020-02 00:00: 00 No 1mg sulfamethox azole 800 mg-trimetho prim 160 mg tablet 2020-02 00:00: 00 No 1mg sulfamethox azole 800 mg-trimetho prim 160 mg tablet 2020-02 00:00: 00 No 1mg Dose Unknown 2020-02 2 00:00: 00 Yes Delfino Orta Dose Unknown 2020-02 2 00:00: 00 No Dose Unknown 2020-02 2- 00:00: 00 No Dose Unknown 2020-02 2 00:00: 00 No Dose Unknown 2020-02 2 00:00: 00 Yes Delfino Orta Dose Unknown 2020-02 2 00:00: 00 Yes Delfino Orta ibuprofen 600 mg tablet 2020-02 2 00:00: 00 Yes 1mg Delfino Orta tizanidine 4 mg tablet 2020-02 2 00:00: 00 Yes 1mg Delfino Orta fluticasone propionate 50 mcg/actuati on nasal spray,suspe nsion 2020-02 2 00:00: 00 Yes 1mcg/ac tuation Delfino Orta Dose Unknown 2020-02 2 00:00: 00 No Dose Unknown 2020-02 2 00:00: 00 No ibuprofen 600 mg tablet 2020-02 00:00: 00 No 1mg tizanidine 4 mg tablet 2020-02 00:00: 00 No 1mg fluticasone propionate 50 mcg/actuati on nasal spray,suspe nsion 2020-02 00:00: 00 No 1mcg/ac tuation Dose Unknown 2020-02 2 00:00: 00 No Dose Unknown 2020-02 00:00: 00 No tizanidine 4 mg tablet 2020-02 00:00: 00 No 1mg Dose Unknown 2020-02 00:00: 00 No fluticasone propionate 50 mcg/actuati on nasal spray,suspe nsion 2020-02 00:00: 00 No 1mcg/ac tuation Dose Unknown 2020-02 00:00: 00 No Dose Unknown 2020-02 2 00:00: 00 No ibuprofen 600 mg tablet 2020-02 2 00:00: 00 No 1mg tizanidine 4 mg tablet 2020-02 2 00:00: 00 No 1mg fluticasone propionate 50 mcg/actuati on nasal spray,suspe nsion 2020-02 00:00: 00 No 1mcg/ac tuation Flovent HFA 220 mcg/actuati on aerosol inhaler 2020-02 0 00:00: 00 Yes 2mcg/ac tuation Delfino Orta ProAir HFA 90 mcg/actuati on aerosol inhaler 2020-02 00:00: 00 Yes 1mcg/ac tuation Delfino Orta imiquimod 3.75 % topical cream in a pump 2020-02 00:00: 00 Yes 1% Delfino Orta Dose Unknown 2020-02 00:00: 00 Yes Delfino Orta Dose Unknown 2020-02 00:00: 00 Yes Delfino Orta atorvastati n 40 mg tablet 2020-02 00:00: 00 Yes 1mg Delfino Orta Dose Unknown 2020-02 00:00: 00 Yes Delfino Orta Dose Unknown 2020-02 00:00: 00 Yes Delfino Orta loratadine 10 mg tablet 2020-02 00:00: 00 [...] tablet 10-12 00:00: 00 Yes 1mg Delfino F You cyclobenzap rine 5 mg tablet 10-12 00:00: [...] 100 mg tablet 09-30 00:00: 00 Yes [id number] 100mg Take 1 tablet by mouth daily. [facility] Flovent HFA 220 mcg/actuati on aerosol [...] 09-17 00:00: 00 Yes 1mg Delfino Orta allopurinol 100 mg tablet 09-17 00:00: 00 [...] propionate 50 mcg/actuati on nasal spray,suspe nsion 8-07 00:00: 00 No 1mcg/ac tuation Flovent HFA [...] mg tablet 08-25 00:00: 00 Yes 1mg Deflino Orta atorvastati n 40 mg tablet 08-25 [...] 10 mg tablet 08-12 00:00: 00 Yes [id number] 10mg Take 1 tablet by mouth daily. [facility] atorvastati n 40 mg tablet 08-12 00:00: 00 Yes [id number] 40mg Take 1 tablet by mouth at bedtime. [facility] fluticasone propionate 50 mcg/actuati on nasal spray 07-20 00:00: 00 Yes [id number] 2{spray } Use 2 Sprays in each nostril daily. [facility] fluticasone propionate (FLOVENT HFA) 220 mcg/actuati on inhaler 07-20 00:00: 00 Yes [id number] 2{puff} Inhale 2 Puffs every 12 (twelve) hours. [facility] albuterol 90 mcg/actuati on inhaler 07-20 00:00: 00 03-20 00:00 :00 No [id number] 2{puff} Inhale 2 Puffs every 4 (four) hours as needed for Wheezing or Shortness of Breath. [facility] ibuprofen 800 mg tablet 07-19 00:00: [...] nsion 07-12 00:00: 00 No 1mcg/ac tuation Flovent HFA 220 mcg/actuati on aerosol inhaler 06-17 00:00: 00 Yes 2mcg/ac tuation Delfino Orta ProAir HFA 90 mcg/actuati on aerosol inhaler 06-17 00:00: 00 Yes 1mcg/ac tuation Delfino Orta atorvastati n 40 mg tablet 06-17 00:00: 00 Yes 1mg Delfino Orta citalopram 20 mg tablet 06-17 00:00: [...] ferrous sulfate 325 mg (65 mg iron) tablet,ruhci yed release 06-17 00:00: 00 No 1(65 mg iron) fluticasone propionate 50 mcg/actuati on nasal spray,suspe nsion 06-17 00:00: 00 No 1mcg/ac tuation Voltaren 1 % topical gel - 00:00: 00 Yes 1% Delfino F You mirtazapine 45 mg tablet 0 - 00:00: 00 Yes 1mg Delfino F You Tessalon Perles 100 mg capsule 0 -12 00:00: 00 Yes 12mg Delfino F You Voltaren 1 % topical gel 0 3-12 00:00: 00 No 1% mirtazapine 45 mg tablet 0 -12 00:00: 00 No 1mg Tessalon Perles 100 mg capsule 0 -12 00:00: 00 No 12mg Voltaren 1 % topical gel 0 -12 00:00: 00 No 1% mirtazapine 45 mg tablet 0 -12 00:00: 00 No 1mg Tessalon Perles 100 mg capsule 0 -12 00:00: 00 No 12mg Voltaren 1 % topical gel 0 3-12 00:00: 00 No 1% mirtazapine 45 mg tablet 0 -12 00:00: 00 No 1mg Tessalon Perles 100 mg capsule 0 -12 00:00: 00 No 12mg fluticasone propionate 50 mcg/actuati on nasal spray,suspe nsion 1-19 00:00: 00 Yes 1mcg/ac tuation Delfino F You fluticasone propionate 50 mcg/actuati on nasal spray,suspe nsion - 00:00: 00 No 1mcg/ac tuation fluticasone propionate 50 mcg/actuati on nasal spray,suspe nsion 03-01 00:00: 00 No 1mcg/ac tuation fluticasone propionate 50 mcg/actuati on nasal spray,suspe nsion 03-01 00:00: 00 No 1mcg/ac tuation Flovent HFA [...] gel 2019-02 00:00: 00 Yes 1% Delfino Endy Orta losartan 100 mg tablet 2019-02 00:00: 00 Yes 1mg Delfino Orta amlodipine 10 mg tablet 2019-02 00:00: 00 Yes 1mg Delfinosurinder Orta Epzicom 600 mg-300 mg tablet 2019-02 [...] No 1mg Epzicom 600 mg-300 mg tablet 0 11-05 00:00: 00 No 1mg ProAir HFA 90 mcg/actuati on aerosol inhaler 0 09-23 00:00: 00 Yes 1mcg/ac tuation Delfino Orta nystatin-tr iamcinolone 100,000 unit/g-0.1 % topical cream 09-23 00:00: 00 Yes 1unit/g -% Delfino Otra amlodipine 10 mg tablet 09-23 00:00: 00 [...] 06-23 00:00: 00 Yes 1mg Delfino Orta losartan 100 mg tablet 06-23 00:00: [...] 1mg Delfino Orta citalopram 20 mg tablet 05-04 00:00: 00 Yes 1mg Delfino Orta montelukast 10 mg tablet 05-04 00:00: 00 Yes 1mg Delfino Orta atorvastati n 40 mg tablet 05-04 00:00: 00 Yes 1mg Delfino Orta losartan 100 mg tablet 05-04 00:00: 00 Yes 1mg Delfino Orta amlodipine [...] tablet 03-31 00:00: 00 Yes 1mg Delfino Orta fluconazole 150 mg tablet 03-31 00:00: 00 No 1mg fluconazole 150 mg tablet 03-31 00:00: 00 No 1mg fluconazole 150 mg tablet 2020-0 2-18 00:00: 00 No 1mg Flovent HFA 220 mcg/actuati on aerosol inhaler 2020-0 2-11 00:00: 00 Yes 2mcg/ac tuation Delfino Orta ProAir HFA 90 mcg/actuati on aerosol inhaler 2019-0 2-11 00:00: 00 Yes 1mcg/ac tuation Delfino Orta Epzicom 600 mg-300 mg tablet 2019-0 2-11 00:00: 00 Yes 1mg Delfino Orta Flovent HFA 220 mcg/actuati on aerosol inhaler 2020-0 2-11 00:00: 00 No 2mcg/ac tuation Flovent HFA 220 mcg/actuati on aerosol inhaler 2020-0 2-11 00:00: 00 No 2mcg/ac tuation ProAir HFA 90 mcg/actuati on aerosol inhaler 2019-0 2-11 00:00: 00 No 1mcg/ac tuation Epzicom 600 mg-300 mg tablet 2019-0 2-11 00:00: 00 No 1mg ProAir HFA 90 mcg/actuati on aerosol inhaler 2019-0 2-11 00:00: 00 No 1mcg/ac tuation Epzicom 600 mg-300 mg tablet 2019-0 2-11 00:00: 00 No 1mg Flovent HFA 220 mcg/actuati on aerosol inhaler 2019-0 2-11 00:00: 00 No 2mcg/ac tuation ProAir HFA 90 mcg/actuati on aerosol inhaler 2019-0 2-11 00:00: 00 No 1mcg/ac tuation Epzicom 600 mg-300 mg tablet 2019-0 2-11 00:00: 00 No 1mg ProAir HFA 90 mcg/actuati on aerosol inhaler 2020-0 1-16 00:00: 00 Yes 1mcg/ac tuation Delfino Orta ProAir HFA 90 mcg/actuati on aerosol inhaler 2020-0 1-16 00:00: 00 No 1mcg/ac tuation ProAir HFA 90 mcg/actuati on aerosol inhaler 2020-0 1-16 00:00: 00 No 1mcg/ac tuation ProAir HFA 90 mcg/actuati on aerosol inhaler 2020-0 1-16 00:00: 00 No 1mcg/ac tuation Flovent HFA 220 mcg/actuati on aerosol inhaler 02-18 00:00: 00 Yes 2mcg/ac tuation Delfino Orta allopurinol 100 mg tablet 02-18 00:00: 00 Yes 1mg Delfino Orta losartan 100 mg tablet 02-18 00:00: 00 Yes 1mg Delfino Orta amlodipine 10 mg tablet 02-18 00:00: 00 Yes 1mg Delfino Orta atorvastati n 40 mg tablet 02-18 00:00: 00 Yes 1mg Delfino Orta citalopram [...] mg capsule 02-18 00:00: 00 No 1mg allopurinol 100 mg tablet 2018-02 00:00: 00 Yes 1mg Delfino Orta amlodipine 10 mg tablet 2018-02 00:00: 00 [...] on aerosol inhaler 2018-02 024 00:00: 00 Yes 2mcg/ac tuation Delfino F You Flovent HFA 220 mcg/actuati on aerosol inhaler 2018-02 024 00:00: 00 No 2mcg/ac tuation Flovent HFA 220 mcg/actuati on aerosol inhaler 2018-02 024 00:00: 00 No 2mcg/ac tuation Flovent HFA 220 mcg/actuati on aerosol inhaler 2018-02 024 00:00: 00 No 2mcg/ac tuation Bactrim DS 800 mg-160 mg tablet 2018-02 0-21 00:00: 00 Yes 1mg Delfino Orta Bactrim DS 800 mg-160 mg tablet 2018-02 021 00:00: 00 No 1mg Bactrim DS 800 mg-160 mg tablet 2018-02 021 00:00: 00 No 1mg Bactrim DS 800 mg-160 mg tablet 2018-02 021 00:00: 00 No 1mg Flovent HFA 220 [...] No 1mg amlodipine 10 mg tablet 2018-02 0-16 00:00: 00 No 1mg mirtazapine 30 mg [...] Flovent HFA 220 mcg/actuati on aerosol inhaler 2018-0216 00:00: 00 No 2mcg/ac tuation ProAir HFA 90 mcg/actuati on aerosol inhaler 2018-0216 00:00: 00 No 1mcg/ac tuation allopurinol 100 mg tablet 2018-0216 00:00: 00 No 1mg amlodipine 10 mg tablet 2018-02 016 00:00: 00 No 1mg mirtazapine 30 mg tablet 2018-02 016 00:00: 00 No 1mg loratadine 10 mg tablet 2018-02 009 00:00: 00 Yes 1mg Delfino Endy You fluticasone propionate 50 mcg/actuati on nasal spray,suspe nsion 2018-02 009 00:00: 00 Yes 1mcg/ac tuation Delfino Orta loratadine 10 mg tablet 2018-02 009 00:00: 00 No 1mg fluticasone propionate 50 mcg/actuati on nasal spray,suspe nsion 2018-02 009 00:00: 00 No 1mcg/ac tuation loratadine 10 mg tablet 2018-02 009 00:00: 00 No 1mg fluticasone propionate 50 mcg/actuati on nasal spray,suspe nsion 2018-02 009 00:00: 00 No 1mcg/ac tuation loratadine 10 mg tablet 2018-02 009 00:00: 00 No 1mg fluticasone propionate 50 mcg/actuati on nasal spray,suspe nsion 2018-02 009 00:00: 00 No 1mcg/ac tuation chlorhexidi ne (PERIDEX) 0.12 % mouthwash 2018-02 0-07 00:00: 00 Yes [id number] 15mL Swish and spit out 15 mL 2 (two) times daily. [facility] allopurinol 100 mg tablet 11-03 00:00: [...] No 1mg cyclobenzap rine 10 mg tablet 0 10-14 00:00: 00 No 1mg fluticasone propionate 50 mcg/actuati on nasal spray,suspe nsion 10-14 00:00: 00 No 1mcg/ac tuation Flovent HFA 220 mcg/actuati on aerosol inhaler 0 10-14 00:00: 00 No 2mcg/ac tuation ProAir HFA 90 mcg/actuati on aerosol inhaler 0 10-14 00:00: 00 No 1mcg/ac tuation loratadine 10 mg tablet 10-14 00:00: 00 No 1mg cyclobenzap rine 10 mg tablet 10-14 00:00: 00 No 1mg fluticasone propionate 50 mcg/actuati on nasal spray,suspe nsion 10-14 00:00: 00 No 1mcg/ac tuation Flovent HFA 220 mcg/actuati on aerosol inhaler 0 10-14 00:00: 00 No 2mcg/ac tuation ProAir HFA 90 mcg/actuati on aerosol inhaler 10-14 00:00: 00 No 1mcg/ac tuation loratadine 10 mg tablet 10-14 00:00: 00 No 1mg cyclobenzap rine 10 mg tablet 10-14 00:00: 00 No 1mg fluticasone propionate 50 mcg/actuati on nasal spray,suspe nsion 10-14 00:00: 00 No 1mcg/ac tuation benzonatate 100 mg capsule 0 10-02 00:00: 00 Yes 1mg Delfino F You benzonatate 100 mg capsule 0 10-02 00:00: 00 No 1mg benzonatate 100 mg capsule 0 10-02 00:00: 00 No 1mg benzonatate 100 mg capsule 10-02 00:00: 00 No 1mg Flovent HFA 220 mcg/actuati on aerosol inhaler 0 09-08 00:00: 00 Yes 2mcg/ac tuation Delfino F You ProAir HFA 90 mcg/actuati on aerosol inhaler 0 09-08 00:00: 00 Yes 1mcg/ac tuation Delfino [...] No 1mg indomethaci n 25 mg capsule 2019-0 3-21 00:00: 00 No 1mg amlodipine 10 mg tablet 0 3-12 00:00: 00 Yes 1mg Delfino Orta amlodipine 10 mg tablet 0 3-12 00:00: 00 No 1mg amlodipine 10 mg tablet 0 3-12 00:00: 00 No 1mg amlodipine 10 mg tablet 0 3-12 00:00: 00 No 1mg Flovent HFA 220 mcg/actuati on aerosol inhaler 2017-02 0-03 00:00: 00 Yes 2mcg/ac tuation Delfino Orta [...] HFA 220 mcg/actuati on aerosol inhaler 2017-02 00:00: 00 No 2mcg/ac tuation ProAir HFA 90 mcg/actuati on aerosol inhaler 2017-02 00:00: 00 No 1mcg/ac tuation citalopram 20 mg tablet 2017-02 00:00: 00 No 1mg Keflex 500 mg capsule 2017-02 00:00: 00 No 1mg nystatin 100,000 unit/mL oral suspension 2017-02 00:00: 00 No 5unit/m L triamcinolo ne [...] capsule 08-30 00:00: 00 Yes 1mg Delfino F You Tessalon Perles 100 mg capsule 08-30 00:00: 00 No 1mg Tessalon Perles 100 mg capsule 08-30 00:00: 00 No 1mg Tessalon Perles 100 mg capsule 08-30 00:00: 00 No 1mg hydrocortis one 0.5 % topical cream 08-27 00:00: 00 Yes 1% Delfino F You benzonatate 100 mg capsule 08-27 00:00: 00 Yes 1mg Delfino F You hydrocortis one 0.5 % topical cream 08-27 [...] 1mg Cetirizine (ZYRTEC) 10 mg capsule 2014-02 00:00: 00 Yes 10mg Take 1 Cap by mouth at bedtime. [facility] Bictegravir -Emtricitab -Tenofov 50-200-25 MG Bictegravir -Emtricitab -Tenofov 50-200-25 MG No 1{table t} QD Bictegravi r-Emtricit ab-Tenofov 50-200-25 MG Cetirizine HCl 10 MG Cetirizine HCl 10 MG No 1{table t} QD Cetirizine HCl 10 MG Atorvastati n Calcium 40 MG Atorvastati n Calcium 40 MG No 1{table t} QD Atorvastat in Calcium 40 MG Hydrocortis one 1 % Hydrocortis one 1 % No 1{appli cation} QD Hydrocorti sone 1 % Albuterol Sulfate HFA 108 (90 Base) MCG/ACT Albuterol Sulfate HFA 108 (90 Base) MCG/ACT No Albuterol Sulfate HFA 108 (90 Base) MCG/ACT Ibuprofen 600 MG Ibuprofen 600 MG No TID Ibuprofen 600 MG Fluconazole 200 MG Fluconazole 200 MG No 1{table t} Fluconazol e 200 MG amLODIPine Besylate 10 MG amLODIPine Besylate 10 MG No 1{table t} QD amLODIPine Besylate 10 MG Losartan Potassium 100 MG Losartan Potassium 100 MG No 1{table t} QD Losartan Potassium 100 MG Fluticasone Propionate 50 MCG/ACT Fluticasone Propionate 50 MCG/ACT No 1{spray _in_eac h_nostr il} QD Fluticason e Propionate 50 MCG/ACT Metoprolol Tartrate 25 MG Metoprolol Tartrate 25 MG No 1{table t_with_ food} BID Metoprolol Tartrate 25 MG Efavirenz 600 MG Efavirenz 600 MG No 1{table t_at_be dtime_o n_an_em pty_sto mach} QD Efavirenz 600 MG Immunizations Ordered Immunization Name Filled Immunization Name Date Status Comments Source Hep A-Hep B Hep A-Hep B 2023-11-19 00:00:00 Completed Delfino Orta SHINGRIX VACCINE SHINGRIX VACCINE 2023-11-19 00:00:00 Completed Delfino Orta Prevnar 20 Prevnar 20 2023-11-19 00:00:00 Completed Delfino Orta nfluenza, recombinant nfluenza, recombinant 2023-09-25 00:00:00 Completed Delfino Orta RSV Recombinant, Arexvy 0.5ML RSV Recombinant, Arexvy 0.5ML 2023-09-25 00:00:00 Completed Delfino Orta Hep A-Hep B [...] Delfino Orta Evusheld (Cilgavimab) 2021-06-13 00:00:00 Completed [facility] Evusheld (Tixagevimab) 2021-06-13 00:00:00 Completed [facility] Evusheld (Cilgavimab) 2021-06-13 00:00:00 Completed [facility] Evusheld (Tixagevimab) 2021-06-13 00:00:00 Completed [facility] Evusheld (Cilgavimab) 2021-06-13 00:00:00 Completed [facility] Evusheld (Tixagevimab) 2021-06-13 00:00:00 Completed [facility] Evusheld (Cilgavimab) 2021-06-13 00:00:00 Completed [facility] Evusheld (Tixagevimab) 2021-06-13 00:00:00 Completed [facility] Evusheld (Cilgavimab) 2021-06-13 00:00:00 Completed [facility] Evusheld (Tixagevimab) 2021-06-13 00:00:00 Completed [facility] Evusheld (Cilgavimab) 2021-06-13 00:00:00 Completed [facility] Evusheld (Tixagevimab) 2021-06-13 00:00:00 Completed [facility] Evusheld (Cilgavimab) 2021-06-13 00:00:00 Completed [facility] Evusheld (Tixagevimab) 2021-06-13 00:00:00 Completed [facility] Evusheld (Cilgavimab) 2021-06-13 00:00:00 Completed [facility] Evusheld (Tixagevimab) 2021-06-13 00:00:00 Completed [facility] Evusheld (Cilgavimab) 2021-06-13 00:00:00 Completed [facility] Evusheld (Tixagevimab) 2021-06-13 00:00:00 Completed [facility] Evusheld (Cilgavimab) 2021-06-13 00:00:00 Completed [facility] Evusheld (Tixagevimab) 2021-06-13 00:00:00 Completed [facility] Moderna COVID-19 Vaccine Moderna COVID-19 Vaccine 2021-02-20 [...] Completed Delfino Orta TDAP 2014-08-19 00:00:00 Completed [facility] TDAP 2014-08-19 00:00:00 Completed [facility] TDAP 2014-08-19 00:00:00 Completed [facility] TDAP 2014-08-19 00:00:00 Completed [facility] TDAP 2014-08-19 00:00:00 Completed [facility] TDAP 2014-08-19 00:00:00 Completed [facility] TDAP 2014-08-19 00:00:00 Completed [facility] TDAP 2014-08-19 00:00:00 Completed [facility] TDAP 2014-08-19 00:00:00 Completed [facility] TDAP 2014-08-19 00:00:00 Completed [facility] Influenza Virus Vaccine 2012-01-21 00:00:00 Completed [facility] Influenza Virus Vaccine 2012-01-21 00:00:00 Completed [facility] Influenza Virus Vaccine 2012-01-21 00:00:00 Completed [facility] Influenza Virus Vaccine 2012-01-21 00:00:00 Completed [facility] Influenza Virus Vaccine 2012-01-21 00:00:00 Completed [facility] Influenza Virus Vaccine 2012-01-21 00:00:00 Completed [facility] Influenza Virus Vaccine 2012-01-21 00:00:00 Completed [facility] Influenza Virus Vaccine 2012-01-21 00:00:00 Completed [facility] Influenza Virus Vaccine 2012-01-21 00:00:00 Completed [facility] Influenza Virus Vaccine 2012-01-21 00:00:00 Completed [facility] Influenza Virus Vaccine Unknown Completed [facility] TDAP Unknown Completed [facility] Evusheld (Cilgavimab) Unknown Completed [facility] Evusheld (Tixagevimab) Unknown Completed [facility] Influenza Virus Vaccine Unknown Completed [facility] TDAP Unknown Completed [facility] Evusheld (Cilgavimab) Unknown Completed [facility] Evusheld (Tixagevimab) Unknown Completed [facility] Influenza Virus Vaccine Unknown Completed [facility] TDAP Unknown Completed [facility] Evusheld (Cilgavimab) Unknown Completed [facility] Evusheld (Tixagevimab) Unknown Completed [facility] Influenza Virus Vaccine Unknown Completed [facility] TDAP Unknown Completed [facility] Evusheld (Cilgavimab) Unknown Completed [facility] Evusheld (Tixagevimab) Unknown Completed [facility] Vital Signs Vital Name Observation Time Observation Value Comments S ource height 2023-11-11 15:00:00 62.5 [in_i] [facility] weight 2023-11-11 15:00:00 118.2 [lb_av] [facility] temperature 2023-11-11 15:00:00 97.8 [degF] [facility] bmi 2023-11-11 15:00:00 21.27 kg/m2 [facility] oximetry 2023-11-11 15:00:00 93 % [facility] respiratory rate 2023-11-11 15:00:00 18 /min [facility] blood pressure systolic 2023-11-11 15:00:00 114 mm[Hg] [facility] blood pressure diastolic 2023-11-11 15:00:00 68 mm[Hg] [facility] Respiratory rate 2023-05-20 20:47:00 16 /min [facility] Oxygen saturation in Arterial blood by Pulse oximetry 2023-05-20 20:47:00 97 /min [facility] Systolic blood pressure 2023-05-20 16:21:00 136 mm[Hg] [facility] Diastolic blood pressure 2023-05-20 16:21:00 81 mm[Hg] [facility] Heart rate 2023-05-20 16:21:00 81 /[facility] 2023-05-20 16:21:00 36.17 Roma [facility] Body weight 2023-05-20 08:12:00 57.063 kg [facility] BMI 2023-05-20 08:12:00 22.28 kg/m2 [facility] Body height 2023-05-16 20:58:00 160 cm [facility] Systolic blood pressure 2023-03-20 16:43:00 154 mm[Hg] [facility] Diastolic blood pressure 2023-03-20 16:43:00 87 mm[Hg] [facility] Heart rate 2023-03-20 16:43:00 77 /min [facility] Body temperature 2023-03-20 16:43:00 36.39 Roma [facility] Respiratory rate 2023-03-20 16:43:00 16 /min [facility] Body height 2023-03-20 16:43:00 160 cm [facility] Body weight 2023-03-20 16:43:00 51.71 kg [facility] BMI 2023-03-20 16:43:00 20.19 kg/m2 [facility] Oxygen saturation in Arterial blood by Pulse oximetry 2023-03-20 16:43:00 100 /min [facility] Systolic blood pressure 2022-09-17 19:28:58 166 mm[Hg] [facility] Diastolic blood pressure 2022-09-17 19:28:58 103 mm[Hg] [facility] Heart rate 2022-09-17 19:28:58 78 /min [facility] Body temperature 2022-09-17 19:28:58 37.06 Roma [facility] Respiratory rate 2022-09-17 19:28:58 18 /min [facility] Oxygen saturation in Arterial blood by Pulse oximetry 2022-09-17 19:28:58 98 /min [facility] Body height 2022-09-17 16:43:00 160 [facility] weight 2022-09-17 16:43:00 51.71 kg [facility] BMI 2022-09-17 16:43:00 20.19 kg/m2 [facility] Systolic blood pressure 2022-04-03 19:20:00 106 mm[Hg] [facility] Diastolic blood pressure 2022-04-03 19:20:00 72 mm[Hg] [facility] Heart rate 2022-04-03 19:20:00 104 /min [facility] Body temperature 2022-04-03 19:20:00 36.22 Roma [facility] Respiratory rate 2022-04-03 19:20:00 18 /min [facility] Body height 2022-04-03 19:20:00 162.6 cm [facility] Body weight 2022-04-03 19:20:00 46.72 kg [facility] BMI 2022-04-03 19:20:00 17.68 kg/m2 [facility] Oxygen saturation in Arterial blood by Pulse oximetry 2022-04-03 19:20:00 89 /min [facility] Systolic blood pressure 2021-07-18 20:42:00 174 mm[Hg] [facility] Diastolic blood pressure 2021-07-18 20:42:00 98 mm[Hg] [facility] Heart rate 2021-07-18 20:42:00 104 /min [facility] Body temperature 2021-07-18 20:42:00 35.72 Roma [facility] Body height 2021-07-18 20:42:00 160 cm [facility] Body weight 2021-07-18 20:42:00 56.246 kg [facility] BMI 2021-07-18 20:42:00 21.97 kg/m2 [facility] BP Systolic 2024-02-07 11:22:00 125 mm[Hg] Kyle Orta BP Diastolic 2024-02-07 11:22:00 76 mm[Hg] Samm Orta Weight Measured 2024-02-07 11:22:00 121.80 pounds Delfino Orta Height Measured 2024-02-07 11:22:00 63.00 inches Delfino Orta Body Temperature 2024-02-07 11:22:00 97.90 degrees Delfino F You Heart Rate 2024-02-07 11:22:00 65.00 /min Araceli en F You Respiratory Rate 2024-02-07 11:22:00 16.00 /min Delfino F You BP Systolic 2024-01-13 09:16:00 143 mm[Hg] Step hen F You BP Diastolic 2024-01-13 09:16:00 80 mm[Hg] Samm phen F You Weight Measured 2024-01-13 09:16:00 126.60 pounds Delfino F You Height Measured 2024-01-13 09:16:00 63.00 inches Delfino F You Body Temperature 2024-01-13 09:16:00 98.00 degrees Delfino F You Heart Rate 2024-01-13 09:16:00 54.00 /min Araceli en F You Respiratory Rate 2024-01-13 09:16:00 16.00 /min Delfino F You BP Systolic 2024-01-01 11:06:00 100 mm[Hg] Step hen F You BP Diastolic 2024-01-01 11:06:00 63 mm[Hg] Samm phen F You Weight Measured 2024-01-01 11:06:00 119.40 pounds Delfino F You Height Measured 2024-01-01 11:06:00 63.00 inches Delfino F You Body Temperature 2024-01-01 11:06:00 97.80 degrees Delfino F You Heart Rate 2024-01-01 11:06:00 68.00 /min Araceli en F You Respiratory Rate 2024-01-01 11:06:00 16.00 /min Delfino F You BP Systolic 2023-11-19 10:36:00 107 mm[Hg] Step hen F You BP Diastolic 2023-11-19 10:36:00 69 mm[Hg] Samm phen F You Weight Measured 2023-11-19 10:36:00 125.40 pounds Delfino F You Height Measured 2023-11-19 10:36:00 63.00 inches Delfino F You Body Temperature 2023-11-19 10:36:00 98.30 degrees Delfino F You Heart Rate 2023-11-19 10:36:00 101.00 /min Step hen F You Respiratory Rate 2023-11-19 10:36:00 19.00 /min Delfino F You BP Systolic 2023-11-02 11:02:00 Step hen F You BP Diastolic 2023-11-02 11:02:00 Samm phen F You Weight Measured 2023-11-02 11:02:00 Delfino F You Height Measured 2023-11-02 11:02:00 Delfino F You Body Temperature 2023-11-02 11:02:00 Delfino F You Heart Rate 2023-11-02 11:02:00 Araceli en F You Respiratory Rate 2023-11-02 11:02:00 Delfino F You BP Systolic 2023-10-09 14:17:00 127 mm[Hg] Step hen F You BP Diastolic 2023-10-09 14:17:00 82 mm[Hg] Samm phen F You Weight Measured 2023-10-09 14:17:00 124.20 pounds Delfino F You Height Measured 2023-10-09 14:17:00 63.00 inches Delfino F You Body Temperature 2023-10-09 14:17:00 97.40 degrees Delfino F You Heart Rate 2023-10-09 14:17:00 88.00 /min Araceli en F You Respiratory Rate 2023-10-09 14:17:00 18.00 /min Delfino F You BP Systolic 2023-09-23 14:04:00 117 mm[Hg] Step hen F You BP Diastolic 2023-09-23 14:04:00 76 mm[Hg] Samm phen F You Weight Measured 2023-09-23 14:04:00 123.20 pounds Delfino F You Height Measured 2023-09-23 14:04:00 63.00 inches Delfino F You Body Temperature 2023-09-23 14:04:00 97.40 degrees Delfino [...] Rate 2023-07-24 11:22:00 16.00 /min Delfino F Oyu BP Systolic 2023-07-09 14:45:00 125 mm[Hg] Step [...] Systolic 2022-09-12 09:10:00 130 mm[Hg] Step hen F You BP Diastolic 2022-09-12 09:10:00 79 mm[Hg] Samm gonzales F You Weight Measured 2022-09-12 09:10:00 118.80 pounds Delfino Endy Orta Height Measured 2022-09-12 09:10:00 63.00 inches Delfino Orta Body Temperature 2022-09-12 09:10:00 98.10 degrees Delfino Orta Heart Rate 2022-09-12 09:10:00 87.00 /min Araceli en F You Respiratory Rate 2022-09-12 09:10:00 18.00 /min Delfino Orta BP Systolic 2022-02-28 11:50:00 122 mm[Hg] [...] BUN, CREATININE, CA) 2023-05-20 08:28:00 Dawn Eddy [facility] CBC WITH DIFF 2023-05-20 08:28:00 Dawn Eddy Frances [facility] TROPONIN I 2023-05-19 10:21:00 [facility] BASIC METABOLIC PANEL (NA, K, CL, CO2, GLUCOSE, BUN, CREATININE, CA) 2023-05-19 10:21:00 Dawn Eddy [facility] LIPID PANEL (42329)(TOTAL CHOLESTEROL, TRIGLYCERIDES, HDL) 2023-05-19 10:21:00 Regis, Qiangjun [facility] CD4 SUBSET ASSAY 2023-05-19 10:21:00 Daniel Arreaga [facility] UREA NITROGEN URINE 2023-05-18 08:30:00 Lefty Abreu [facility] COMP. METABOLIC PANEL (45246) 2023-05-17 18:43:00 Ayde Hearnherine [facility] CBC WITH DIFF 2023-05-17 18:43[facility]OSCOPIC 2023-05-17 14:17:00 Essence Abreu [facility] SODIUM, URINE RANDOM 2023-05-17 14:16:00 [facility] PROTEIN CREAT RATIO URINE RANDOM 2023-05-17 14:16:00 [facility] TROPONIN I 2023-05-17 13:54:00 Lefty Arbeu [facility] TRANSTHORACIC ECHO (TTE) COMPLETE 2023-05-17 12:45:00 Kvng Roberson [facility] CREATININE 2023-05-17 03:28[facility]23-05-16 21:13:00 Kvng Roberson [facility] ACUTE CARE VENOUS BLOOD GAS 2023-05-16 [facility] 2023-05-16 18:00:09 Anyi Hearn [facility] LIPASE 2023-05-16 17:40:00 [facility] TROPONIN [facility] 2023-05-16 17:40:00 Ezra Anyi [facility] COMP. METABOLIC PANEL ([id number]) 2023-05-16 17:40:00 Ayde Hearnherine [facility] CBC WITH DIFF 2023-05-16 17:40[facility]00 [facility]OUT[facility] & RHYTHM STRIP 2023-05-16 17:21:17 Ayde Hearnherine [facility] ASSIGNMENT OF BENEFITS 2023-03-20 17:45:01 Docto r Unassigned, Joffre [facility] CONSENT/REFUSAL FOR DIAGNOSIS AND TREATMENT 2023-03-20 16:29:12 Doctor Unassigned, Joffre [facility] XR SPINE THORACIC 2 VW 2022-09-17 18:21:00 Vannesa Hobbs [facility] CONSENT/REFUSAL FOR DIAGNOSIS AND TREATMENT 2022-09-17 16:35:17 Doctor Unassigned, Joffre [facility] REFERRAL- REQUEST/RESPONSE 2022-06-05 05:01:00 Doctor Unassigned, Joffre [facility] HSV 1&2, VZV NAAT 2022-04-03 20:43[facility]00 [facility]RESPONSE 2022-01-19 06:01:00 Doctor Unassigned, Joffre [facility] [address]166 Ecg Routine Ecg W/least 12 Lds W/i r 2016-10-23 00:00:00 Delfino Orta Plan of Care Planned Activity Planned Date Details Comments Source Goal Plan of Care Note [code = 88847-1] Goal Plan of Care Note [code = 51309-2] Goal Plan of Care Note [code = 46720-5] Goal Plan of Care Note [code = 38015-4] Goal Plan of Care Note [code = 55354-4] Goal Plan of Care Note [code = 12948-0] Goal Plan of Care Note [code = 05640-9] Goal Plan of Care Note [code = 48272-7] Goal Plan of Care Note [code = 33334-0] Goal Plan of Care Note [code = 40571-5] Goal Plan of Care Note [code = 28793-5] Goal Plan of Care Note [code = 68478-7] Goal Plan of Care Note [code = 62999-6] Goal Plan of Care Note [code = 36668-6] Goal Plan of Care Note [code = 98594-6] Goal Plan of Care Note [code = 45321-0] Goal Plan of Care Note [code = 40361-2] Goal Plan of Care Note [code = 94416-4] Goal Plan of Care Note [code = 53005-8] Goal Plan of Care Note [code = 19568-3] Goal Plan of Care Note [code = 18035-9] Goal Plan of Care Note [code = 57690-3] Goal Plan of Care Note [code = 29832-4] Goal Plan of Care Note [code = 52407-9] Goal Plan of Care Note [code = 05484-2] Goal Plan of Care Note [code = 41640-7] Goal Plan of Care Note [code = 40008-6] Goal Plan of Care Note [code = 24504-6] Goal Plan of Care Note [code = 21470-9] Goal Plan of Care Note [code = 12153-1] Goal Plan of Care Note [code = 69048-4] Goal Plan of Care Note [code = 51300-2] Goal Plan of Care Note [code = 83746-7] Goal Plan of Care Note [code = 81241-4] Goal Plan of Care Note [code = 40334-3] Goal Plan of Care Note [code = 28570-4] Goal Plan of Care Note [code = 94027-6] Goal Plan of Care Note [code = 64140-4] Goal Plan of Care Note [code = 75912-2] Goal Plan of Care Note [code = 89434-3] Goal Plan of Care Note [code = 95928-4] Goal Plan of Care Note [code = 66993-2] Goal Plan of Care Note [code = 84696-4] Goal Plan of Care Note [code = 57756-8] Goal Plan of Care Note [code = 39231-3] Goal Plan of Care Note [code = 36266-1] Goal Plan of Care Note [code = 66288-8] Goal Plan of Care Note [code = 03160-6] Goal Plan of Care Note [code = 31617-9] Goal Plan of Care Note [code = 14990-7] Goal Plan of Care Note [code = 94054-1] Goal Plan of Care Note [code = 71827-0] Goal Plan of Care Note [code = 52875-3] Goal Plan of Care Note [code = 55105-2] Goal Plan of Care Note [code = 15724-3] Goal Plan of Care Note [code = 84380-6] Goal Plan of Care Note [code = 02608-8] Goal Plan of Care Note [code = 28289-9] Goal Plan of Care Note [code = 50551-0] Goal Plan of Care Note [code = 97198-5] Goal Plan of Care Note [code = 21469-3] Goal Plan of Care Note [code = 32629-4] Goal Plan of Care Note [code = 67444-7] Goal Plan of Care Note [code = 36391-2] Goal Plan of Care Note [code = 45718-0] Goal Plan of Care Note [code = 27348-3] Goal Plan of Care Note [code = 80971-9] Goal Plan of Care Note [code = 73062-7] Goal Plan of Care Note [code = 84389-4] Goal Plan of Care Note [code = 55415-1] Goal Plan of Care Note [code = 16053-6] Goal Plan of Care Note [code = 53992-8] Goal Plan of Care Note [code = 88483-3] Goal Plan of Care Note [code = 05591-7] Goal Plan of Care Note [code = 34212-0] Goal Plan of Care Note [code = 98650-0] Goal Plan of Care Note [code = 32918-9] Goal Plan of Care Note [code = 02818-2] Goal Plan of Care Note [code = 26093-8] Goal Plan of Care Note [code = 96850-8] Goal Plan of Care Note [code = 23865-7] Goal Plan of Care Note [code = 49715-2] Goal Plan of Care Note [code = 79368-1] Goal Plan of Care Note [code = 77454-2] Goal Plan of Care Note [code = 41548-0] Goal Plan of Care Note [code = 37229-5] Goal Plan of Care Note [code = 97750-0] Goal Plan of Care Note [code = 44436-5] Goal Plan of Care Note [code = 97076-0] Goal Plan of Care Note [code = 11296-4] Goal Plan of Care Note [code = 82326-5] Goal Plan of Care Note [code = 77956-7] Goal Plan of Care Note [code = 50074-0] Goal Plan of Care Note [code = 45574-2] Goal Plan of Care Note [code = 55284-8] Goal Plan of Care Note [code = 89045-2] Goal Plan of Care Note [code = 82347-6] Goal Plan of Care Note [code = 17850-4] Goal Plan of Care Note [code = 03454-0] Goal Plan of Care Note [code = 49024-0] Goal Plan of Care Note [code = 73692-0] Goal Plan of Care Note [code = 62967-5] Goal Plan of Care Note [code = 57148-6] Goal Plan of Care Note [code = 29917-9] Goal Plan of Care Note [code = 88523-7] Goal Plan of Care Note [code = 82042-6] Goal Plan of Care Note [code = 49013-1] Goal Plan of Care Note [code = 58573-9] Goal Plan of Care Note [code = 97577-0] Goal Plan of Care Note [code = 24629-3] Goal Plan of Care Note [code = 67308-2] Goal Plan of Care Note [code = 78791-4] Goal Plan of Care Note [code = 44459-1] Goal Plan of Care Note [code = 96149-4] Goal Plan of Care Note [code = 75263-4] Goal Plan of Care Note [code = 19093-3] Goal Plan of Care Note [code = 53999-2] Goal Plan of Care Note [code = 34364-0] Goal Plan of Care Note [code = 02877-5] Goal Plan of Care Note [code = 17027-4] Goal Plan of Care Note [code = 91903-9] Goal Plan of Care Note [code = 18454-9] Goal Plan of Care Note [code = 68139-1] Goal Plan of Care Note [code = 51748-4] Goal Plan of Care Note [code = 19102-3] Goal Plan of Care Note [code = 82713-0] Goal Plan of Care Note [code = 65676-4] Goal Plan of Care Note [code = 32498-3] Goal Plan of Care Note [code = 15072-9] Goal Plan of Care Note [code = 62596-7] Goal Plan of Care Note [code = 75219-7] Goal Plan of Care Note [code = 53090-9] Goal Plan of Care Note [code = 20584-6] Goal Plan of Care Note [code = 31036-1] Goal Plan of Care Note [code = 79292-1] Goal Plan of Care Note [code = 63013-9] Goal Plan of Care Note [code = 42394-9] Goal Plan of Care Note [code = 19643-8] Goal Plan of Care Note [code = 79361-2] Goal Plan of Care Note [code = 65602-8] Goal Plan of Care Note [code = 43031-8] Goal Plan of Care Note [code = 04852-7] Goal Plan of Care Note [code = 76047-0] Goal Plan of Care Note [code = 07981-0] Goal Plan of Care Note [code = 98699-7] Goal Plan of Care Note [code = 32233-4] Goal Plan of Care Note [code = 74722-1] Goal Plan of Care Note [code = 01597-8] Goal Plan of Care Note [code = 30380-3] Goal Plan of Care Note [code = 89942-0] Goal Plan of Care Note [code = 56099-5] Goal Plan of Care Note [code = 25123-2] Goal Plan of Care Note [code = 11618-9] Goal Plan of Care Note [code = 84080-1] Goal Plan of Care Note [code = 84784-4] Goal Plan of Care Note [code = 69786-4] Goal Plan of Care Note [code = 03812-7] Goal Plan of Care Note [code = 95297-5] Goal Plan of Care Note [code = 74736-3] Goal Plan of Care Note [code = 27780-7] Goal Plan of Care Note [code = 83810-7] Goal Plan of Care Note [code = 36121-4] Goal Plan of Care Note [code = 56177-8] Goal Plan of Care Note [code = 90700-9] Goal Plan of Care Note [code = 82207-5] Goal Plan of Care Note [code = 78241-0] Goal Plan of Care Note [code = 71479-5] Goal Plan of Care Note [code = 37191-7] Goal Plan of Care Note [code = 33067-5] Goal Plan of Care Note [code = 99771-6] Goal Plan of Care Note [code = 39672-8] Goal Plan of Care Note [code = 86763-4] Goal Plan of Care Note [code = 73564-9] Goal Plan of Care Note [code = 37901-4] Encounters Start Date/Time End Date/Time Encounter Type Admission Type Attending [facility] Care Department Encounter ID Source 2023-12-04 10:08:00 Outpatient [facility] [id number] [facility] 2023-11-11 14:53:00 Outpatient Zaria [facility]rellana [facility] [id number] [facility] 2023-03-29 10:18:01 Outpatient [facility] [id number] [facility] 2023-03-28 14:01:00 Outpatient [facility] [id number] [facility] 2023-03-26 15:20:01 Outpatient [facility] [id number] [facility] 2024-02-07 11:11:04 2024-02-07 11:11:04 Outpatient [facility] [id number] Delfino Orta 2024-02-07 00:00:00 2024-02-07 00:00:00 Outpatient Visit SFA [id number] p79-2b73-6 [id number]-ece94c [id number] Delfino Orta 2024-01-13 09:11:38 2024-01-13 09:11:38 Outpatient [facility] [id number] Delfino Orta 2024-01-13 00:00:00 2024-01-13 00:00:00 Outpatient Visit SFA [id number] fda-45c9-8 [id number] Delfino Orta 2024-01-01 00:00:00 2024-01-01 00:00:00 Outpatient Visit SFA [id number] f1vr6782-d b5u-305i-2 acd-bd3c1c [id number] Delfino Orta 2023-11-28 00:00:00 2023-11-28 00:00:00 Outpatient Visit SFA [id number] s142nz2c-v ffe-4d1a-9 602-7d4d0f c3cbfb Delfino Orta 2023-11-20 09:01:17 2023-11-20 09:01:17 Outpatient SFA SFA 1009 Delfino Orta 2023-11-19 10:28:43 2023-11-19 10:28:43 Outpatient SFA SFA 1008 Delfino Orta 2023-11-19 00:00:00 2023-11-19 00:00:00 Outpatient Visit SFA [id number] 425-43cf-b [id number] edee0e Delfino Orta 2023-11-12 00:00:00 2023-11-12 00:00:00 (TEL) [facility] [id number] [facility] 2023-11-11 00:00:00 2023-11-11 00:00:00 OFFICE VISIT NEW PT LEVEL 4 [facility] ST[facility] [id number] [facility] 2023-11-02 11:02:07 2023-11-02 11:02:07 Outpatient [facility] [id number] Delfino Orta 2023-11-02 00:00:00 2023-11-02 00:00:00 Outpatient Visit SFA [id number]-l 694-4dee-9 1dc-3505b0 b84bc6 Delfino Orta 2023-10-09 14:12:37 2023-10-09 14:12:37 Outpatient SFA SFA 827 Delfino Orta 2023-10-09 00:00:00 2023-10-09 00:00:00 Outpatient Visit SFA [id number] yk72l7e3-5 v85-4072-1 ac5-c614e2 oz675h Delfino Orta 2023-09-23 13:55:35 2023-09-23 13:55:35 Outpatient SFA SFA 811 Delfino Orta 2023-09-23 00:00:00 2023-09-23 00:00:00 Outpatient Visit SFA [id number] zo11f9v5-y acc-4b92-9 l9g-9w21jo [id number] Delfino Orta 2023-09-10 09:05:48 2023-09-10 09:05:48 Outpatient SFA SFA [id number] Delfino Orta 2023-09-10 00:00:00 2023-09-10 00:00:00 Outpatient Visit SFA [id number]-6 6g0-19k8-9 [id number] [id number] Delfino Orta 2023-08-28 13:07:55 2023-08-28 13:07:55 Outpatient SFA SFA [id number] Delfino Orta 2023-08-28 00:00:00 2023-08-28 00:00:00 Outpatient Visit SFA [id number] o6s0oosq-0 5o5-8n75-5 8k5-8e6q67 [id number] Delfino Orta 2023-08-22 00:00:00 2023-08-22 00:00:00 Outpatient Visit SFA [id number] 5g0b43m6-5 bc5-4fb0-9 p10-8674t6 66acd9 Delfino Orta 2023-08-09 14:45:50 2023-08-09 14:45:50 Outpatient SFA SFA [id number] Delfino Orta 2023-08-09 00:00:00 2023-08-09 00:00:00 Outpatient Visit SFA [id number] bu3ty56l-y 5fc-42da-a [id number] Delfino Orta 2023-07-24 11:05:48 2023-07-24 11:05:48 Outpatient SFA SFA [id number] Delfino Orta 2023-07-24 00:00:00 2023-07-24 00:00:00 Outpatient Visit SFA [id number] wm3k7m1t-2 41c-49d6-a g8a-8801pk [id number] Delfino Orta 2023-07-09 00:00:00 2023-07-09 00:00:00 Outpatient Visit SFA [id number] x10-58d6-f [id number] [id number] eDlfino Orta 2023-07-02 00:00:00 2023-07-02 14:33:10 Letter (Out) [facility] 1..840.114 350.1.13.10 4.2.7.2.686 [id number] [facility] 2023-06-05 13:09:09 2023-06-05 13:09:09 Outpatient [facility] [id number] Delfino Schumacher [place] 2023-06-04 13:27:22 2023-06-04 13:27:22 Outpatient [facility] [id number] Delfino Schumacher [place] 2023-06-04 00:00:00 2023-06-04 00:00:00 Outpatient Visit SFA [id number]-y fc5-45eb-a [id number] 0b1f1c Delfino Schumacher [place] 2023-05-21 00:00:00 2023-05-21 00:00:00 Transition of Care Lj Paredes [facility] 1..840.114 350.1.13.10 4.2.7.2.686 [id number] [facility] 2023-05-16 12:13:00 2023-05-20 16:40:00 Inpatient X KVNG ROBERSON [facility] [id number] [facility] 2023-05-16 12:13:00 2023-05-20 16:40:00 Hospital Encounter Anyi Hearn David [facility] 1..840.114 350.1.13.10 4.2.7.2.686 [id number] [facility] 2023-05-09 13:59:33 2023-05-09 13:59:33 Outpatient [facility] [id number] Delfino Schumacher [place] 2023-04-18 10:12:11 2023-04-18 10:12:11 Outpatient [facility] [id number] Delfino Schumacher [place] 2023-04-02 09:41:47 2023-04-02 09:41:47 Outpatient [facility] [id number] Delfino Schumacher [place] 2023-03-20 10:44:00 2023-03-20 12:35:00 Emergency X ANYI HEARN [facility] ERT [id number] [facility] 2023-03-20 10:44:00 2023-03-20 12:35:00 Emergency Anyi Hearn [facility] 1.2.840.114 350.1.13.10 4.2.7.2.686 [id number] [facility] 2023-03-18 10:58:22 2023-03-18 10:58:22 Outpatient [facility] [id number] Delfino Orta 2023-03-14 14:37:27 2023-03-14 14:37:27 Outpatient [facility] 020 Delfino Schumacher [place] 2023-03-07 13:58:45 2023-03-07 13:58:45 Outpatient [facility] [id number] Delfino Schumacher [place] 2022-12-14 14:53:29 2022-12-14 14:53:29 Outpatient [facility] [id number] Delfino Schumacher [place] 2022-10-04 11:25:10 2022-10-04 11:25:10 Outpatient [facility] [id number] Delfino Schumacher [place] 2022-09-17 11:44:00 2022-09-17 14:31:00 Emergency X GASTON HOBBS [facility] ERT [id number] [facility] 2022-09-17 11:44:00 2022-09-17 14:31:00 Emergency Gaston Hobbs [facility] 1.2840.114 350.1.13.10 4.2.7.2.686 [id number] [facility] 2022-09-12 09:01:58 2022-09-12 09:01:58 Outpatient [facility] [id number] Delfino Orta 2022-09-11 00:00:00 2022-09-11 00:00:00 [facility] 1.2840.114 350.1.13.10 4.2.7.2.686 [id number] [facility] 2022-08-07 09:45:03 2022-08-07 09:45:03 Outpatient [facility] [id number] Delfino Orta 2022-08-01 13:52:32 2022-08-01 13:52:32 Outpatient [facility] [id number] Delfino Orta 2022-07-18 09:30:00 2022-07-18 09:30:00 Outpatient R CLARITZA JAMISON [facility] [id number] [facility] 2022-07-04 11:11:38 2022-07-04 11:11:38 Outpatient [facility] [id number] Delfino Orta 2022-06-05 00:00:00 2022-06-05 00:00:00 Orders Only Doctor Unassigned, Joffre [facility] .840.114 350.1.13.10 4.2.7.2.686 [id number] [facility] 2022-05-29 09:31:33 2022-05-29 09:31:33 Outpatient [facility] [id number] Delfino Orta 2022-05-15 13:00:00 2022-05-15 13:00:00 Outpatient R [facility] [id number] [facility] 2022-05-15 09:34:43 2022-05-15 09:34:43 Outpatient [facility] [id number] Delfino Orta 2022-04-19 15:25:24 2022-04-19 15:25:24 Outpatient [facility] [id number] Delfino Orta 2022-04-04 00:00:00 2022-04-04 00:00:00 Case Management Jeanine Almaguer [facility] 1.840.114 350.1.13.10 4.2.7.2.686 [id number] [facility] 2022-04-03 13:00:00 2022-04-03 14:00:00 Office Visit Guerline Garcia [facility] .840.114 350.1.13.10 4.2.7.2.686 [id number] [facility] 2022-04-03 13:00:00 2022-04-03 13:00:00 Outpatient R GUERO MARTINEZ [facility] [id number] [facility] 2022-04-02 15:14:37 2022-04-02 15:14:37 Outpatient [facility] [id number] Delfino Orta 2022-03-28 13:26:46 2022-03-28 13:26:46 Outpatient [facility] [id number] Delfino Orta 2022-02-28 11:43:30 2022-02-28 11:43:30 Outpatient [facility] [id number] Delfino Orta 2022-02-28 00:00:00 2022-02-28 00:00:00 Outpatient Visit [id number] d017-56f9 -9cca-918 [id number] n90l8wt4-d 633-44a8-9 cca-918f69 9a0a89 2022-02-27 15:30:00 2022-02-27 15:30:00 Outpatient R [facility] [id number] [facility] 2022-02-23 10:25:15 2022-02-23 10:25:15 Outpatient [facility] [id number] Delfino Orta 2022-02-22 00:00:00 2022-02-22 00:00:00 Case Management Jeanine Almaguer [facility] .840.114 350.1.13.10 4.2.7.2.686 [id number] [facility] 2022-01-29 00:00:00 2022-01-29 00:00:00 Case Management Osman Ware [facility] 1.840.114 350.1.13.10 4.2.7.2.686 [id number] [facility] 2022-01-19 13:56:18 2022-01-19 13:56:18 Outpatient SFA [facility] [id number] Delfino Orta 2022-01-19 00:00:00 2022-01-19 00:00:00 Orders Only Doctor Unassigned, Joffre [facility] 1..840.114 350.1.13.10 4.2.7.2.686 [id number] [facility] 2022-01-19 00:00:00 2022-01-19 00:00:00 Outpatient Visit [id number] 1727-41cc -8650-544 31aw10a7n [id number] fg915291-3 727-41cc-8 650-83370h b58e4d 2021-11-15 00:00:00 2021-11-15 00:00:00 [facility]..840.114 350.1.13.10 4.2.7.2.686 [id number] [facility] 2021-11-06 00:00:00 2021-11-06 00:00:00 Outpatient Visit [id number] 012e-4b99 -89ed-9b1 [id number] 12e-4b99-8 9ed-9b1c44 4516de 2021-10-10 09:30:00 2021-10-10 09:30:00 Outpatient R [facility] [id number] [facility] 2021-09-07 00:00:00 2021-09-07 00:00:00 Outpatient ELO BHARDWAJ [id number] [facility] 2021-08-25 03:29:00 2021-08-25 03:29:00 [id number] [facility] 2021-08-07 00:00:00 2021-08-07 00:00:00 Outpatient Visit ww24igul- 4e99-4ek6 -9ij1-p87 [id number] gp55dagm-1 u16-6xy8-4 cb5-d02d18 t7040j 2021-07-18 15:15:00 2021-07-18 16:23:57 Outpatient R APOLINAR WEBER [facility] [id number] [facility] 2021-07-18 15:15:00 2021-07-18 16:23:57 Office Visit Pgy2 Apolinar Webre [facility] 1..114 350.1.13.10 4.2.7.2.686 [id number] [facility] 2021-07-18 15:15:00 2021-07-18 16:23:57 Outpatient APOLINAR MOORE [facility] [id number] [facility] 2021-06-27 00:00:00 2021-06-27 00:00:00 Telephone Enedina Mccarty [facility] 1..114 350.1.13.10 4.2.7.2.686 [id number] [facility] 2021-06-15 00:00:00 2021-06-15 00:00:00 Transition of Care Lj Paredes 1.840.114 350.1.13.10 4.2.7.2.686 [id number] [facility] 2021-06-09 10:48:00 2021-06-14 17:22:00 Inpatient BILLY HAWKINS [facility] [id number] [facility] 2021-06-09 10:48:00 2021-06-14 17:22:00 Hospital Encounter Toby Donohue A [place], Alfred Scott [facility] 1.84.114 350.1.13.10 4.2.7.2.686 [id number] [facility] 2021-06-12 00:00:00 2021-06-12 00:00:00 Case Management Evette Dunn [facility] 1.2.840.114 350.1.13.10 4.2.7.2.686 [id number] [facility] 2021-06-08 10:46:00 2021-06-08 16:28:00 Emergency X KENNEDI BLUE [facility] ERT [id number] [facility] 2021-06-08 10:46:00 2021-06-08 16:28:00 Emergency Kennedi Blue G [facility] 1.2.840.114 350.1.13.10 4.2.7.2.686 [id number] [facility] 2021-05-24 00:00:00 2021-05-24 00:00:00 Letter (Out) Mikael Quiroz [facility] 1.2840.114 350.1.13.10 4.2.7.2.686 [id number] [facility] 2021-05-23 00:00:00 2021-05-23 00:00:00 Orders Only Doctor Unassigned, Joffre [facility] 1.2.840.114 350.1.13.10 4.2.7.2.686 [id number] [facility] 2021-05-16 09:00:00 2021-05-16 09:00:00 Outpatient Dean_Robert [facility] [id number] [facility] 2021-05-01 11:30:00 2021-05-01 12:47:00 Emergency X LJ LIANG [facility] ERT [id number] [facility] 2021-05-01 11:30:00 2021-05-01 12:47:00 Emergency Lj Liang [facility] 1.2840.114 350.1.13.10 4.2.7.2.686 [id number] [facility] 2020-10-04 11:44:00 2020-10-04 12:54:00 Emergency X CHAPARRITA NUNEZRA [facility] ERT [id number] [facility] 2020-10-04 11:44:00 2020-10-04 12:54:00 Emergency Chaparrita Nunezra Eliane [facility] 1.20.114 350.1.13.10 4.2.7.2.686 [id number] [facility] 2020-09-29 00:00:00 2020-09-29 00:00:00 Telephone Bonny Morris [facility] 1.84.114 350.1.13.10 4.2.7.2.686 [id number] [facility] 2020-09-22 14:30:00 2020-09-22 14:30:00 Outpatient R BONNY MORRIS [facility] [id number] [facility] 2020-08-25 11:32:00 2020-08-25 11:32:00 Outpatient Adams_R [facility] [id number] [facility] 2020-08-25 09:28:00 2020-08-25 10:21:00 Emergency PanchoChaparritara Del Rio [facility] 1.284.114 350.1.13.10 4.2.7.2.686 [id number] [facility] 2020-08-25 09:28:00 2020-08-25 10:21:00 Emergency X CHAPARRITA NUNEZRA [facility] ERT [id number] [facility] 2020-08-24 14:43:00 2020-08-24 15:59:00 Emergency Terri Elliott [facility] 1.2840.114 350.1.13.10 4.2.7.2.686 [id number] [facility] 2020-08-24 14:43:00 2020-08-24 15:59:00 Emergency X [facility] ERT [id number] [facility] 2020-08-24 00:00:00 2020-08-24 00:00:00 Telephone Bonny MorrisHAg [facility] 1.2840.114 350.1.13.10 4.2.7.2.686 [id number] [facility] 2020-08-12 15:00:00 2020-08-12 15:00:00 Outpatient R BONNY MORRIS [facility] [id number] [facility] 2020-08-12 00:00:00 2020-08-12 00:00:00 Telephone Bonny MorrisHAg [facility] 1.2.840.114 350.1.13.10 4.2.7.2.686 [id number] [facility] 2020-08-04 01:58:00 2020-08-04 01:58:00 [place] [id number] [facility] 2020-07-28 00:00:00 2020-07-28 00:00:00 Telephone Bonny MorrisHAg [facility] 1.2.840.114 350.1.13.10 4.2.7.2.686 [id number] [facility] 2020-07-28 00:00:00 2020-07-28 00:00:00 Orders Only Doctor Unassigned, Joffre [facility] 1.2840.114 350.1.13.10 4.2.7.2.686 [id number] [facility] 2020-07-27 00:00:00 2020-07-27 00:00:00 Telephone MorrisUshaiva MickyAg [facility] 1.2.840.114 350.1.13.10 4.2.7.2.686 [id number] [facility] 2020-07-27 00:00:00 2020-07-27 00:00:00 Telephone Morris Bonny MickyAg [facility] 1.2.840.114 350.1.13.10 4.2.7.2.686 [id number] [facility] 2020-07-26 14:25:36 2020-07-26 15:12:16 Office Visit Bonny Morris TerriAgMarshaAg [facility] 1.2.840.114 350.1.13.10 4.2.7.2.686 [id number] [facility] 2020-07-26 14:30:00 2020-07-26 14:30:00 Outpatient R BONNY MORRIS [facility] [id number] [facility] 2020-07-20 10:25:00 2020-07-20 15:52:00 Emergency Dawn Blanco S [facility] 1.2.840.114 350.1.13.10 4.2.7.2.686 [id number] [facility] 2020-07-20 10:16:00 2020-07-20 10:16:00 Emergency X [facility] ERT [id number] [facility] 2020-07-18 01:42:00 2020-07-18 01:42:[address] [facility] [facility] [id number] [facility] 2020-07-01 13:47:00 2020-07-01 16:34:00 Emergency Josse Lockhart F [facility] 1.2.840.114 350.1.13.10 4.2.7.2.686 [id number] [facility] 2020-07-01 13:47:00 2020-07-01 16:34:00 Emergency X JOSSE LOCKHART [facility] ERT [id number] [facility] 2020-07-01 13:47:00 2020-07-01 16:34:00 Emergency Josse Lockhart [facility] 1.2.840.114 350.1.13.10 4.2.7.2.686 [id number] Results Test Description Test Time Test Comments Results Result Co mments Source LIPID [id number] 06:36:53* Test Item Value Reference Range Interpretation Comme nts CHOLESTEROL (test code = 2210) 196 MG/DL <200 TRIGLYCERIDES (test code = 2232) 66 MG/DL <150 HDL CHOLESTEROL (test code = 2220) 109 MG/DL >39 CALC LDL CHOL (test code = 2237) 72 MG/DL <100 NOTE: CALCULATED LDL IS BASED ON CLOTILDE-STARKEY METHOD WHICHINCLUDES ADJUSTABLE TRIGLYCERIDE:VLDL CHOLESTEROL RATIO.THIS FACTOR VARIES BY MEASURED TRIGLYCERIDE AND NON-HDLCHOLESTEROL CONCENTRATIONS WITH INCREASED CALCULATED LDL SEENIN HIGHER TRIGLYCERIDE OR LOWER NON-HDL SPECIMENS. FOR MOREINFORMATION, SEE CLIENT ANNOUNCEMENT AT [email or web address] [email or web address] LDL/HDL (test code = 2238) 0.66 RATIO <3.22 HEMOGLOBIN [id number] 04:59:33* Test Item Value Reference Range Interpretation Comme nts HEMOGLOBIN A1c (test code = 00038) 5.9 % 4.2-5.6 H [employer] GUIDELINES FOR HGB A1C: PREDIABETES/INCREASED RISK . . . . . . . 5.7-6.4% DIAGNOSIS OF DIABETES . . . . . . . . . >=6.5% WITH CONFIRMATION OR APPROPRIATE SYMPTOMS NOTE: ASSAY MAY BE AFFECTED BY HEMOGLOBINOPATHIES (SICKLE CELL ANEMIA, S-C DISEASE, OTHERS) OR ARTIFICIALLY LOWERED BY DECREASED RED CELL SURVIVAL (HEMOLYTIC ANEMIAS, BLOOD LOSS, ETC.). CONSIDER ALTERNATE TESTING OR LABORATORY CONSULTATION. UNLESS OTHERWISE INDICATED, ALL TESTING PERFORMED AT [facility] [address] [place] [address] ANIMAL SKINNER: ABBI SHORT M.D. CLIA NUMBER [id number] [facility] [place]. [id number] CBC W/AUTO DIFF WITH [id number] 03:30:09* Test Item Value Reference Range Interpretation Comme nts WBC (test code = 1001) 4.2 K/UL 3.5-11.0 RBC (test code = 1002) 3.82 M/UL 3.80-5.40 HEMOGLOBIN (test code = 1003) 13.4 G/DL 11.5-15.5 HEMATOCRIT (test code = 1004) 41.0 % 34.0-45.0 MCV (test code = 1005) 107.3 fL 80.0-99.0 H MCH (test code = 1006) 35.1 PG 25.0-33.0 H MCHC (test code = 1007) 32.7 G/DL 31.0-36.0 RDW (test code = 1038) 12.9 % 11.5-15.0 NEUTROPHILS (test code = 1008) 59.3 % LYMPHOCYTES (test code = 1010) 28.4 % MONOCYTES (test code = 1011) 7.8 % EOSINOPHILS (test code = 1012) 3.1 % BASOPHILS (test code = 1013) 1.2 % IMMATURE GRANULOCYTES (test code = 1036) 0.2 % NUCLEATED RBCS (test code = 1065) 0.0 /100 WBC'S See_Comment [Automated messa ge] The system which generated this result transmitted reference range: 0.0. The reference range was not used to interpret this result as normal/abnormal. PLATELET COUNT (test code = 1015) 289 K/UL 130-400 ABSOLUTE NEUTROPHILS (test code = 1066) 2.51 K/UL 1.50-7.50 ABSOLUTE LYMPHOCYTES (test code = 1067) 1.20 K/UL 1.00-4.00 ABSOLUTE MONOCYTES (test code = 1068) 0.33 K/UL 0.20-1.00 ABSOLUTE EOSINOPHILS (test code = 1040) 0.13 K/UL 0.00-0.50 ABSOLUTE BASOPHILS (test code = 1069) 0.05 K/UL 0.00-0.20 ABS IMMATURE GRANULOCYTES (test code = 1020) 0.01 K/UL 0.00-0.10 ABS NUCLEATED RBCS (test code = 64781) 0.00 K/UL 0.00-0.11 COMPREHENSIVE METABOLIC [id number] 00:00:00* Test Item Value Reference Range Interpretation Comme nts GLUCOSE (test code = 2217) 87 MG/DL BUN (test code = 2208) 19 MG/DL CREATININE (test code = 2214) 1.49 MG/DL eGFR (2020 CKD-EPI) (test co de = 87783) 40 ML/MIN/1.73 CALC BUN/CREAT (test code = 2235) 13 RATIO SODIUM (test code = 2231) 143 MEQ/L POTASSIUM (test code = 2228) 3.8 MEQ/L CHLORIDE (test code = 2215) 107 MEQ/L CARBON DIOXIDE (test code = 2206) 21 MEQ/L CALCIUM (test code = 2209) 10.7 MG/DL PROTEIN, TOTAL (test code = 2229) 8.3 G/DL ALBUMIN (test code = 2201) 4.4 G/DL CALC GLOBULIN (test code = 2240) 3.9 G/DL CALC A/G RATIO (test code = 2234) 1.1 RATIO BILIRUBIN, TOTAL (test code = 2207) 0.4 MG/DL ALKALINE PHOSPHATASE (test code = 2204) 109 U/L AST (test code = 2218) 31 U/L ALT (test code = 2219) 25 U/L Delfino Schumacher [facility] W/AUTO [id number] 00:00:00* Test Item Value Reference Range Interpretation Comme nts WBC (test code = 1001) 4.2 K/UL RBC (test code = 1002) 3.82 M/UL HEMOGLOBIN (test code = 1003) 13.4 G/DL HEMATOCRIT (test code = 1004) 41.0 % MCV (test code = 1005) 107.3 fL MCH (test code = 1006) 35.1 PG MCHC (test code = 1007) 32.7 G/DL RDW (test code = 1038) 12.9 % NEUTROPHILS (test code = 1008) 59.3 % LYMPHOCYTES (test code = 1010) 28.4 % MONOCYTES (test code = 1011) 7.8 % EOSINOPHILS (test code = 1012) 3.1 % BASOPHILS (test code = 1013) 1.2 % IMMATURE GRANULOCYTES (test code = 1036) 0.2 % NUCLEATED RBCS (test code = 1065) 0.0 /100WBC'S PLATELET COUNT (test code = 1015) 289 K/UL ABSOLUTE NEUTROPHILS (test c ode = 1066) 2.51 K/UL ABSOLUTE LYMPHOCYTES (test c ode = 1067) 1.20 K/UL ABSOLUTE MONOCYTES (test cod e = 1068) 0.33 K/UL ABSOLUTE EOSINOPHILS (test c ode = 1040) 0.13 K/UL ABSOLUTE BASOPHILS (test cod e = 1069) 0.05 K/UL ABS IMMATURE GRANULOCYTES (t est code = 1020) 0.01 K/UL ABS NUCLEATED RBCS (test cod e = 29406) 0.00 K/UL Delfino OrtaLIPID [id number] 00:00:00* Test Item Value Reference Range Interpretation Comme nts CHOLESTEROL (test code = 2210) 196 MG/DL TRIGLYCERIDES (test code = 2232) 66 MG/DL HDL CHOLESTEROL (test code = 2220) 109 MG/DL CALC LDL CHOL (test code = 2237) 72 MG/DL RISK RATIO LDL/HDL (test cod e = 2238) 0.66 RATIO Delfino OrtaHEMOGLOBIN [id number] 00:00:00* Test Item Value Reference Range Interpretation Comme nts HEMOGLOBIN A1c (test code = 98846) 5.9 % Delfino OrtaCOMPREHENSIVE METABOLIC [id number] 00:00:00* Test Item Value Reference Range Interpretation Comme nts GLUCOSE (test code = 2217) 87 MG/DL BUN (test code = 2208) 19 MG/DL CREATININE (test code = 2214) 1.49 MG/DL eGFR (2020 CKD-EPI) (test co de = 13474) 40 ML/MIN/1.73 CALC BUN/CREAT (test code = 2235) 13 RATIO SODIUM (test code = 2231) 143 MEQ/L POTASSIUM (test code = 2228) 3.8 MEQ/L CHLORIDE (test code = 2215) 107 MEQ/L CARBON DIOXIDE (test code = 2206) 21 MEQ/L CALCIUM (test code = 2209) 10.7 MG/DL PROTEIN, TOTAL (test code = 2229) 8.3 G/DL ALBUMIN (test code = 2201) 4.4 G/DL CALC GLOBULIN (test code = 2240) 3.9 G/DL CALC A/G RATIO (test code = 2234) 1.1 RATIO BILIRUBIN, TOTAL (test code = 2207) 0.4 MG/DL ALKALINE PHOSPHATASE (test code = 2204) 109 U/L AST (test code = 2218) 31 U/L ALT (test code = 2219) 25 U/L Delfino OrtaCBC W/AUTO [id number] 00:00:00* Test Item Value Reference Range Interpretation Comme nts WBC (test code = 1001) 4.2 K/UL RBC (test code = 1002) 3.82 M/UL HEMOGLOBIN (test code = 1003) 13.4 G/DL HEMATOCRIT (test code = 1004) 41.0 % MCV (test code = 1005) 107.3 fL MCH (test code = 1006) 35.1 PG MCHC (test code = 1007) 32.7 G/DL RDW (test code = 1038) 12.9 % NEUTROPHILS (test code = 1008) 59.3 % LYMPHOCYTES (test code = 1010) 28.4 % MONOCYTES (test code = 1011) 7.8 % EOSINOPHILS (test code = 1012) 3.1 % BASOPHILS (test code = 1013) 1.2 % IMMATURE GRANULOCYTES (test code = 1036) 0.2 % NUCLEATED RBCS (test code = 1065) 0.0 /100WBC'S PLATELET COUNT (test code = 1015) 289 K/UL ABSOLUTE NEUTROPHILS (test c ode = 1066) 2.51 K/UL ABSOLUTE LYMPHOCYTES (test c ode = 1067) 1.20 K/UL ABSOLUTE MONOCYTES (test cod e = 1068) 0.33 K/UL ABSOLUTE EOSINOPHILS (test c ode = 1040) 0.13 K/UL ABSOLUTE BASOPHILS (test cod e = 1069) 0.05 K/UL ABS IMMATURE GRANULOCYTES (t est code = 1020) 0.01 K/UL ABS NUCLEATED RBCS (test cod e = 64211) 0.00 K/UL Delfino OrtaLIPID [id number] 00:00:00* Test Item Value Reference Range Interpretation Comme nts CHOLESTEROL (test code = 2210) 196 MG/DL TRIGLYCERIDES (test code = 2232) 66 MG/DL HDL CHOLESTEROL (test code = 2220) 109 MG/DL CALC LDL CHOL (test code = 2237) 72 MG/DL RISK RATIO LDL/HDL (test cod e = 2238) 0.66 RATIO Delfino OrtaHEMOGLOBIN [id number] 00:00:00* Test Item Value Reference Range Interpretation Comme carlito HEMOGLOBIN A1c (test code = 75193) 5.9 % Delfino OrtaHIV-1 QUANT, [id number] 11:19:24* Test Item Value Reference Range Interpretation Commleobardo esteban HIV-1 VIRAL COPY (test code = 4141) TEST NOT PERFORMED COPIES/ML Unable to perform testing, specimen not received.Charges adjusted as applicable. HIV-1 VIRAL LOG (test code = 42114) TEST NOT PERFORMED LOG COPIES/ML Range of quantitatio n is 20-10,000,000 Copies/mL, (1.301-7.000log Copies/mL). Samples with HIV RNA detected below the limit ofquantitation are reported as <20 Copies/mL. Assay methodology ispolymerase chain reaction (PCR) using the [employer] 6800/8800system. The expected result is NOT DETECTED. For diagnostic use,please refer to laboratory test compendium. HIV-1 QUANT, [id number] 00:00:00* Test Item Value Reference Range Interpretation Commleobardo esteban HIV-1 VIRAL COPY (test code = 4141) TEST NOT PERFORMED COPIES/ML HIV-1 VIRAL LOG (test code = 69153) TEST NOT PERFORMED LOGCOPIES/ML Delfino OrtaHIV-1 QUANT, [id number] 00:00:00* Test Item Value Reference Range Interpretation Commleobardo esteban HIV-1 VIRAL COPY (test code = 4141) TEST NOT PERFORMED COPIES/ML HIV-1 VIRAL LOG (test code = 31452) TEST NOT PERFORMED LOGCOPIES/ML Delfino OrtaHIV-1 QUANT, [id number] 00:00:00* Test Item Value Reference Range Interpretation Commleobardo esteban HIV-1 VIRAL COPY (test code = 4141) TEST NOT PERFORMED COPIES/ML HIV-1 VIRAL LOG (test code = 32667) TEST NOT PERFORMED LOGCOPIES/ML Delfino OrtaHIV-1 QUANT, [id number] 00:00:00* Test Item Value Reference Range Interpretation Comme nts HIV-1 VIRAL COPY (test code = 4141) TEST NOT PERFORMED COPIES/ML HIV-1 VIRAL LOG (test code = 16481) TEST NOT PERFORMED LOGCOPIES/ML Delfino OrtaCD4/CD8 LYMPHOCYTE [id number] 15:06:04* Test Item Value Reference Range Interpretation Comme nts ABSOLUTE LYMPHOCYTES (test code = 99049) 1180 PER UL 7347-2804 PERCENT CD4 (test code = 93698) 20.9 % 34.0-65.0 L ABSOLUTE CD4 (test code = 07716) 247 PER UL 520-1470 L PERCENT CD8 (test code = 67157) 56.8 % 13.0-38.0 H ABSOLUTE CD8 (test code = 84601) 670 PER UL 205-920 CD4/CD8 RATIO (test code = 66358) 0.37 0.92-3.41 L UNLESS OTHERWISE INDICATED, ALL TESTING PERFORMED AT [facility] [employer] [address] [place] [address] ANIMAL SKINNER: ABBI SHORT M.D. CLIA NUMBER [id number] [facility] [place]. [id number] CD4/CD8 LYMPHOCYTE [id number] 00:00:00* Test Item Value Reference Range Interpretation Comme nts ABSOLUTE LYMPHOCYTES (test c ode = 49447) 1180 PERUL PERCENT CD4 (test code = 06777) 20.9 % ABSOLUTE CD4 (test code = 51929) 247 PERUL PERCENT CD8 (test code = 13637) 56.8 % ABSOLUTE CD8 (test code = 77534) 670 PERUL CD4/CD8 RATIO (test code = 30853) 0.37 Delfino OrtaCD4/CD8 LYMPHOCYTE [id number] 00:00:00* Test Item Value Reference Range Interpretation Comme nts ABSOLUTE LYMPHOCYTES (test c ode = 66461) 1180 PERUL PERCENT CD4 (test code = 37433) 20.9 % ABSOLUTE CD4 (test code = 80165) 247 PERUL PERCENT CD8 (test code = 83278) 56.8 % ABSOLUTE CD8 (test code = 62096) 670 PERUL CD4/CD8 RATIO (test code = 85936) 0.37 Delfino Schumacher AustinCD4/CD8 LYMPHOCYTE [id number] 00:00:00* Test Item Value Reference Range Interpretation Comme nts ABSOLUTE LYMPHOCYTES (test c ode = 59796) 1180 PERUL PERCENT CD4 (test code = 22828) 20.9 % ABSOLUTE CD4 (test code = 10034) 247 PERUL PERCENT CD8 (test code = 66732) 56.8 % ABSOLUTE CD8 (test code = 37879) 670 PERUL CD4/CD8 RATIO (test code = 56807) 0.37 Delfino OrtaCD4/CD8 LYMPHOCYTE [id number] 00:00:00* Test Item Value Reference Range Interpretation Comme nts ABSOLUTE LYMPHOCYTES (test c ode = 00997) 1180 PERUL PERCENT CD4 (test code = 51550) 20.9 % ABSOLUTE CD4 (test code = 31711) 247 PERUL PERCENT CD8 (test code = 68646) 56.8 % ABSOLUTE CD8 (test code = 33503) 670 PERUL CD4/CD8 RATIO (test code = 23217) 0.37 Delfino OrtaCD4/CD8 LYMPHOCYTE [id number] 00:00:00* Test Item Value Reference Range Interpretation Comme nts ABSOLUTE LYMPHOCYTES (test c ode = 00702) 877 PERUL PERCENT CD4 (test code = 98471) 22.4 % ABSOLUTE CD4 (test code = 34877) 196 PERUL PERCENT CD8 (test code = 29717) 58.8 % ABSOLUTE CD8 (test code = 22852) 515 PERUL CD4/CD8 RATIO (test code = 30012) 0.38 Delfino OrtaHIV-1 QUANT, [id number] 00:00:00* Test Item Value Reference Range Interpretation Comme nts HIV-1 VIRAL COPY (test code = 4141) 619 COPIES/ML HIV-1 VIRAL LOG (test code = 12195) 2.792 LOGCOPIES/ML Delfino OrtaHEMOGLOBIN A1c [ADDED]2023-09-11 00:00:00* Test Item Value Reference Range Interpretation Comme nts HEMOGLOBIN A1c (test code = 04848) 5.6 % Delfino Schumacher [facility] W/AUTO [id number] 00:00:00* Test Item Value Reference Range Interpretation Comme nts WBC (test code = 1001) 3.9 K/UL RBC (test code = 1002) 3.65 M/UL HEMOGLOBIN (test code = 1003) 13.6 G/DL HEMATOCRIT (test code = 1004) 38.9 % MCV (test code = 1005) 106.6 fL MCH (test code = 1006) 37.3 PG MCHC (test code = 1007) 35.0 G/DL RDW (test code = 1038) 12.7 % NEUTROPHILS (test code = 1008) 61.0 % LYMPHOCYTES (test code = 1010) 28.0 % MONOCYTES (test code = 1011) 7.3 % EOSINOPHILS (test code = 1012) 1.8 % BASOPHILS (test code = 1013) 1.6 % IMMATURE GRANULOCYTES (test code = 1036) 0.3 % NUCLEATED RBCS (test code = 1065) 0.0 /100WBC'S PLATELET COUNT (test code = 1015) 232 K/UL ABSOLUTE NEUTROPHILS (test c ode = 1066) 2.36 K/UL ABSOLUTE LYMPHOCYTES (test c ode = 1067) 1.08 K/UL ABSOLUTE MONOCYTES (test cod e = 1068) 0.28 K/UL ABSOLUTE EOSINOPHILS (test c ode = 1040) 0.07 K/UL ABSOLUTE BASOPHILS (test cod e = 1069) 0.06 K/UL ABS IMMATURE GRANULOCYTES (t est code = 1020) 0.01 K/UL ABS NUCLEATED RBCS (test cod e = 60715) 0.00 K/UL Delfino OrtaCOMPREHENSIVE METABOLIC [id number] 00:00:00* Test Item Value Reference Range Interpretation Comme nts GLUCOSE (test code = 2217) 83 MG/DL BUN (test code = 2208) 24 MG/DL CREATININE (test code = 2214) 1.32 MG/DL eGFR (2020 CKD-EPI) (test co de = 01158) 46 ML/MIN/1.73 CALC BUN/CREAT (test code = [...] = 2219) 13 U/L Delfino OrtaCD4/CD8 LYMPHOCYTE [id number] 00:00:00* Test Item Value Reference Range Interpretation Comme nts ABSOLUTE LYMPHOCYTES (test c ode = 29768) 877 PERUL PERCENT CD4 (test code = 83519) 22.4 % ABSOLUTE CD4 (test code = 25672) 196 PERUL PERCENT CD8 (test code = 02643) 58.8 % ABSOLUTE CD8 (test code = 88373) 515 PERUL CD4/CD8 RATIO (test code = 84018) 0.38 Delfino OrtaHIV-1 QUANT, [id number] 00:00:00* Test Item Value Reference Range Interpretation Comme carlito HIV-1 VIRAL COPY (test code = 4141) 619 COPIES/ML HIV-1 VIRAL LOG (test code = 24598) 2.792 LOGCOPIES/ML Delfino OrtaHEMOGLOBIN A1c [ADDED]2023-09-11 00:00:00* Test Item Value Reference Range Interpretation Comme carlito HEMOGLOBIN A1c (test code = 86153) 5.6 % Delfino OrtaCBC W/AUTO [id number] 00:00:00* Test Item Value Reference Range Interpretation Comme carlito WBC (test code = 1001) 3.9 K/UL RBC (test code = 1002) 3.65 M/UL HEMOGLOBIN (test code = 1003) 13.6 G/DL HEMATOCRIT (test code = 1004) 38.9 % MCV (test code = 1005) 106.6 fL MCH (test code = 1006) 37.3 PG MCHC (test code = 1007) 35.0 G/DL RDW (test code = 1038) 12.7 % NEUTROPHILS (test code = 1008) 61.0 % LYMPHOCYTES (test code = 1010) 28.0 % MONOCYTES (test code = 1011) 7.3 % EOSINOPHILS (test code = 1012) 1.8 % BASOPHILS (test code = 1013) 1.6 % IMMATURE GRANULOCYTES (test code = 1036) 0.3 % NUCLEATED RBCS (test code = 1065) 0.0 /100WBC'S PLATELET COUNT (test code = 1015) 232 K/UL ABSOLUTE NEUTROPHILS (test c ode = 1066) 2.36 K/UL ABSOLUTE LYMPHOCYTES (test c ode = 1067) 1.08 K/UL ABSOLUTE MONOCYTES (test cod e = 1068) 0.28 K/UL ABSOLUTE EOSINOPHILS (test c ode = 1040) 0.07 K/UL ABSOLUTE BASOPHILS (test cod e = 1069) 0.06 K/UL ABS IMMATURE GRANULOCYTES (t est code = 1020) 0.01 K/UL ABS NUCLEATED RBCS (test cod e = 17408) 0.00 K/UL Delfino OrtaCOMPREHENSIVE METABOLIC [id number] 00:00:00* Test Item Value Reference Range Interpretation Comme nts GLUCOSE (test code = 2217) 83 MG/DL BUN (test code = 2208) 24 MG/DL CREATININE (test code = 2214) 1.32 MG/DL eGFR (2020 CKD-EPI) (test co de = 74854) 46 ML/MIN/1.73 CALC BUN/CREAT (test code = [...] = 2219) 13 U/L Delfino OrtaCD4/CD8 LYMPHOCYTE [id number] 00:00:00* Test Item Value Reference Range Interpretation Comme nts ABSOLUTE LYMPHOCYTES (test c ode = 21928) 877 PERUL PERCENT CD4 (test code = 21222) 22.4 % ABSOLUTE CD4 (test code = 44763) 196 PERUL PERCENT CD8 (test code = 52841) 58.8 % ABSOLUTE CD8 (test code = 61749) 515 PERUL CD4/CD8 RATIO (test code = 23941) 0.38 Delfino OrtaHIV-1 QUANT, [id number] 00:00:00* Test Item Value Reference Range Interpretation Comme [facility] HIV-1 VIRAL COPY (test code = 4141) 619 COPIES/ML HIV-1 VIRAL LOG (test code = 44063) 2.792 LOGCOPIES/ML Delfino OrtaHEMOGLOBIN A1c [ADDED]2023-09-11 00:00:00* Test Item Value Reference Range Interpretation Comme [facility] HEMOGLOBIN A1c (test code = 65427) 5.6 % Delfino OrtaCBC W/AUTO [id number] 00:00:00* Test Item Value Reference Range Interpretation Comme nts WBC (test code = 1001) 3.9 K/UL RBC (test code = 1002) 3.65 M/UL HEMOGLOBIN (test code = 1003) 13.6 G/DL HEMATOCRIT (test code = 1004) 38.9 % MCV (test code = 1005) 106.6 fL MCH (test code = 1006) 37.3 PG MCHC (test code = 1007) 35.0 G/DL RDW (test code = 1038) 12.7 % NEUTROPHILS (test code = 1008) 61.0 % LYMPHOCYTES (test code = 1010) 28.0 % MONOCYTES (test code = 1011) 7.3 % EOSINOPHILS (test code = 1012) 1.8 % BASOPHILS (test code = 1013) 1.6 % IMMATURE GRANULOCYTES (test code = 1036) 0.3 % NUCLEATED RBCS (test code = 1065) 0.0 /100WBC'S PLATELET COUNT (test code = 1015) 232 K/UL ABSOLUTE NEUTROPHILS (test c ode = 1066) 2.36 K/UL ABSOLUTE LYMPHOCYTES (test c ode = 1067) 1.08 K/UL ABSOLUTE MONOCYTES (test cod e = 1068) 0.28 K/UL ABSOLUTE EOSINOPHILS (test c ode = 1040) 0.07 K/UL ABSOLUTE BASOPHILS (test cod e = 1069) 0.06 K/UL ABS IMMATURE GRANULOCYTES (t est code = 1020) 0.01 K/UL ABS NUCLEATED RBCS (test cod e = 41477) 0.00 K/UL Delfino OrtaCOMPREHENSIVE METABOLIC [id number] 00:00:00* Test Item Value Reference Range Interpretation Comme nts GLUCOSE (test code = 2217) 83 MG/DL BUN (test code = 2208) 24 MG/DL CREATININE (test code = 2214) 1.32 MG/DL eGFR (2020 CKD-EPI) (test co de = 61512) 46 ML/MIN/1.73 CALC BUN/CREAT (test code = [...] code = 2219) 13 U/L Delfino Schumacher YouCD4/CD8 LYMPHOCYTE [id number] 00:00:00* Test Item Value Reference Range Interpretation Comme nts ABSOLUTE LYMPHOCYTES (test c ode = 31777) 877 PERUL PERCENT CD4 (test code = 08370) 22.4 % ABSOLUTE CD4 (test code = 11614) 196 PERUL PERCENT CD8 (test code = 58992) 58.8 % ABSOLUTE CD8 (test code = 97297) 515 PERUL CD4/CD8 RATIO (test code = 33590) 0.38 Delfino OrtaHIV-1 QUANT, [id number] 00:00:00* Test Item Value Reference Range Interpretation Comme nts HIV-1 VIRAL COPY (test code = 4141) 619 COPIES/ML HIV-1 VIRAL LOG (test code = 87031) 2.792 LOGCOPIES/ML Delfino OrtaHEMOGLOBIN A1c [ADDED]2023-09-11 00:00:00* Test Item Value Reference Range Interpretation Comme nts HEMOGLOBIN A1c (test code = 60027) 5.6 % Delfino OrtaCBC W/AUTO [id number] 00:00:00* Test Item Value Reference Range Interpretation Comme nts WBC (test code = 1001) 3.9 K/UL RBC (test code = 1002) 3.65 M/UL HEMOGLOBIN (test code = 1003) 13.6 G/DL HEMATOCRIT (test code = 1004) 38.9 % MCV (test code = 1005) 106.6 fL MCH (test code = 1006) 37.3 PG MCHC (test code = 1007) 35.0 G/DL RDW (test code = 1038) 12.7 % NEUTROPHILS (test code = 1008) 61.0 % LYMPHOCYTES (test code = 1010) 28.0 % MONOCYTES (test code = 1011) 7.3 % EOSINOPHILS (test code = 1012) 1.8 % BASOPHILS (test code = 1013) 1.6 % IMMATURE GRANULOCYTES (test code = 1036) 0.3 % NUCLEATED RBCS (test code = 1065) 0.0 /100WBC'S PLATELET COUNT (test code = 1015) 232 K/UL ABSOLUTE NEUTROPHILS (test c ode = 1066) 2.36 K/UL ABSOLUTE LYMPHOCYTES (test c ode = 1067) 1.08 K/UL ABSOLUTE MONOCYTES (test cod e = 1068) 0.28 K/UL ABSOLUTE EOSINOPHILS (test c ode = 1040) 0.07 K/UL ABSOLUTE BASOPHILS (test cod e = 1069) 0.06 K/UL ABS IMMATURE GRANULOCYTES (t est code = 1020) 0.01 K/UL ABS NUCLEATED RBCS (test cod e = 40375) 0.00 K/UL Delfino OrtaCOMPREHENSIVE METABOLIC [id number] 00:00:00* Test Item Value Reference Range Interpretation Comme nts GLUCOSE (test code = 2217) 83 MG/DL BUN (test code = 2208) 24 MG/DL CREATININE (test code = 2214) 1.32 MG/DL eGFR (2020 CKD-EPI) (test co de = 46282) 46 ML/MIN/1.73 CALC BUN/CREAT (test code = [...] code = 2219) 13 U/L Delfino Schumacher YouCD4/CD8 LYMPHOCYTE [id number] 00:00:00* Test Item Value Reference Range Interpretation Comme [facility] ABSOLUTE LYMPHOCYTES (test c ode = 22324) 877 PERUL PERCENT CD4 (test code = 23059) 22.4 % ABSOLUTE CD4 (test code = 50755) 196 PERUL PERCENT CD8 (test code = 61220) 58.8 % ABSOLUTE CD8 (test code = 39402) 515 PERUL CD4/CD8 RATIO (test code = 94338) 0.38 Delfino Schumacher YouHIV-1 QUANT, [id number] 00:00:00* Test Item Value Reference Range Interpretation Comme [facility] HIV-1 VIRAL COPY (test code = 4141) 619 COPIES/ML HIV-1 VIRAL LOG (test code = 47320) 2.792 LOGCOPIES/ML Delfino Schumacher YouHEMOGLOBIN A1c [ADDED]2023-09-11 00:00:00* Test Item Value Reference Range Interpretation Comme [facility] HEMOGLOBIN A1c (test code = 57438) 5.6 % Delfino Schumacher YouCBC W/AUTO [id number] 00:00:00* Test Item Value Reference Range Interpretation Comme nts WBC (test code = 1001) 3.9 K/UL RBC (test code = 1002) 3.65 M/UL HEMOGLOBIN (test code = 1003) 13.6 G/DL HEMATOCRIT (test code = 1004) 38.9 % MCV (test code = 1005) 106.6 fL MCH (test code = 1006) 37.3 PG MCHC (test code = 1007) 35.0 G/DL RDW (test code = 1038) 12.7 % NEUTROPHILS (test code = 1008) 61.0 % LYMPHOCYTES (test code = 1010) 28.0 % MONOCYTES (test code = 1011) 7.3 % EOSINOPHILS (test code = 1012) 1.8 % BASOPHILS (test code = 1013) 1.6 % IMMATURE GRANULOCYTES (test code = 1036) 0.3 % NUCLEATED RBCS (test code = 1065) 0.0 /100WBC'S PLATELET COUNT (test code = 1015) 232 K/UL ABSOLUTE NEUTROPHILS (test c ode = 1066) 2.36 K/UL ABSOLUTE LYMPHOCYTES (test c ode = 1067) 1.08 K/UL ABSOLUTE MONOCYTES (test cod e = 1068) 0.28 K/UL ABSOLUTE EOSINOPHILS (test c ode = 1040) 0.07 K/UL ABSOLUTE BASOPHILS (test cod e = 1069) 0.06 K/UL ABS IMMATURE GRANULOCYTES (t est code = 1020) 0.01 K/UL ABS NUCLEATED RBCS (test cod e = 53412) 0.00 K/UL Delfino OtraCOMPREHENSIVE METABOLIC [id number] 00:00:00* Test Item Value Reference Range Interpretation Comme nts GLUCOSE (test code = 2217) 83 MG/DL BUN (test code = 2208) 24 MG/DL CREATININE (test code = 2214) 1.32 MG/DL eGFR (2020 CKD-EPI) (test co de = 23194) 46 ML/MIN/1.73 CALC BUN/CREAT (test code = [...] = 2219) 13 U/L Delfino OrtaCD4/CD8 LYMPHOCYTE [id number] 00:00:00* Test Item Value Reference Range Interpretation Comme carlito ABSOLUTE LYMPHOCYTES (test c ode = 34093) 877 PERUL PERCENT CD4 (test code = 49064) 22.4 % ABSOLUTE CD4 (test code = 42114) 196 PERUL PERCENT CD8 (test code = 51230) 58.8 % ABSOLUTE CD8 (test code = 22967) 515 PERUL CD4/CD8 RATIO (test code = 61530) 0.38 Delfino OrtaHIV-1 QUANT, [id number] 00:00:00* Test Item Value Reference Range Interpretation Comme carlito HIV-1 VIRAL COPY (test code = 4141) 619 COPIES/ML HIV-1 VIRAL LOG (test code = 50733) 2.792 LOGCOPIES/ML Delfino OrtaHEMOGLOBIN A1c [ADDED]2023-09-11 00:00:00* Test Item Value Reference Range Interpretation Comme carlito HEMOGLOBIN A1c (test code = 63365) 5.6 % Delfino OrtaCBC W/AUTO [id number] 00:00:00* Test Item Value Reference Range Interpretation Comme carlito WBC (test code = 1001) 3.9 K/UL RBC (test code = 1002) 3.65 M/UL HEMOGLOBIN (test code = 1003) 13.6 G/DL HEMATOCRIT (test code = 1004) 38.9 % MCV (test code = 1005) 106.6 fL MCH (test code = 1006) 37.3 PG MCHC (test code = 1007) 35.0 G/DL RDW (test code = 1038) 12.7 % NEUTROPHILS (test code = 1008) 61.0 % LYMPHOCYTES (test code = 1010) 28.0 % MONOCYTES (test code = 1011) 7.3 % EOSINOPHILS (test code = 1012) 1.8 % BASOPHILS (test code = 1013) 1.6 % IMMATURE GRANULOCYTES (test code = 1036) 0.3 % NUCLEATED RBCS (test code = 1065) 0.0 /100WBC'S PLATELET COUNT (test code = 1015) 232 K/UL ABSOLUTE NEUTROPHILS (test c ode = 1066) 2.36 K/UL ABSOLUTE LYMPHOCYTES (test c ode = 1067) 1.08 K/UL ABSOLUTE MONOCYTES (test cod e = 1068) 0.28 K/UL ABSOLUTE EOSINOPHILS (test c ode = 1040) 0.07 K/UL ABSOLUTE BASOPHILS (test cod e = 1069) 0.06 K/UL ABS IMMATURE GRANULOCYTES (t est code = 1020) 0.01 K/UL ABS NUCLEATED RBCS (test cod e = 28586) 0.00 K/UL Delfino OrtaCOMPREHENSIVE METABOLIC [id number] 00:00:00* Test Item Value Reference Range Interpretation Comme nts GLUCOSE (test code = 2217) 83 MG/DL BUN (test code = 2208) 24 MG/DL CREATININE (test code = 2214) 1.32 MG/DL eGFR (2020 CKD-EPI) (test co de = 64548) 46 ML/MIN/1.73 CALC BUN/CREAT (test code = [...] = 2219) 13 U/L Delfino OrtaCD4/CD8 LYMPHOCYTE [id number] 00:00:00* Test Item Value Reference Range Interpretation Comme nts ABSOLUTE LYMPHOCYTES (test c ode = 35337) 877 PERUL PERCENT CD4 (test code = 55649) 22.4 % ABSOLUTE CD4 (test code = 83770) 196 PERUL PERCENT CD8 (test code = 32880) 58.8 % ABSOLUTE CD8 (test code = 19203) 515 PERUL CD4/CD8 RATIO (test code = 38444) 0.38 Delfino OrtaHIV-1 QUANT, [id number] 00:00:00* Test Item Value Reference Range Interpretation Comme [facility] HIV-1 VIRAL COPY (test code = 4141) 619 COPIES/ML HIV-1 VIRAL LOG (test code = 81410) 2.792 LOGCOPIES/ML Delfino OrtaHEMOGLOBIN A1c [ADDED]2023-09-11 00:00:00* Test Item Value Reference Range Interpretation Comme nts HEMOGLOBIN A1c (test code = 66323) 5.6 % Delfino OrtaCBC W/AUTO [id number] 00:00:00* Test Item Value Reference Range Interpretation Comme nts WBC (test code = 1001) 3.9 K/UL RBC (test code = 1002) 3.65 M/UL HEMOGLOBIN (test code = 1003) 13.6 G/DL HEMATOCRIT (test code = 1004) 38.9 % MCV (test code = 1005) 106.6 fL MCH (test code = 1006) 37.3 PG MCHC (test code = 1007) 35.0 G/DL RDW (test code = 1038) 12.7 % NEUTROPHILS (test code = 1008) 61.0 % LYMPHOCYTES (test code = 1010) 28.0 % MONOCYTES (test code = 1011) 7.3 % EOSINOPHILS (test code = 1012) 1.8 % BASOPHILS (test code = 1013) 1.6 % IMMATURE GRANULOCYTES (test code = 1036) 0.3 % NUCLEATED RBCS (test code = 1065) 0.0 /100WBC'S PLATELET COUNT (test code = 1015) 232 K/UL ABSOLUTE NEUTROPHILS (test c ode = 1066) 2.36 K/UL ABSOLUTE LYMPHOCYTES (test c ode = 1067) 1.08 K/UL ABSOLUTE MONOCYTES (test cod e = 1068) 0.28 K/UL ABSOLUTE EOSINOPHILS (test c ode = 1040) 0.07 K/UL ABSOLUTE BASOPHILS (test cod e = 1069) 0.06 K/UL ABS IMMATURE GRANULOCYTES (t est code = 1020) 0.01 K/UL ABS NUCLEATED RBCS (test cod e = 69970) 0.00 K/UL Delfino OrtaCOMPREHENSIVE METABOLIC [id number] 00:00:00* Test Item Value Reference Range Interpretation Comme nts GLUCOSE (test code = 2217) 83 MG/DL BUN (test code = 2208) 24 MG/DL CREATININE (test code = 2214) 1.32 MG/DL eGFR (2020 CKD-EPI) (test co de = 62553) 46 ML/MIN/1.73 CALC BUN/CREAT (test code = [...] = 2219) 13 U/L Delfino OrtaCD4/CD8 LYMPHOCYTE [id number] 00:00:00* Test Item Value Reference Range Interpretation Comme nts ABSOLUTE LYMPHOCYTES (test c ode = 19880) 877 PERUL PERCENT CD4 (test code = 15918) 22.4 % ABSOLUTE CD4 (test code = 56639) 196 PERUL PERCENT CD8 (test code = 60708) 58.8 % ABSOLUTE CD8 (test code = 54900) 515 PERUL CD4/CD8 RATIO (test code = 83838) 0.38 Delfino OrtaHIV-1 QUANT, [id number] 00:00:00* Test Item Value Reference Range Interpretation Comme nts HIV-1 VIRAL COPY (test code = 4141) 619 COPIES/ML HIV-1 VIRAL LOG (test code = 54674) 2.792 LOGCOPIES/ML Delfino OrtaHEMOGLOBIN A1c [ADDED]2023-09-11 00:00:00* Test Item Value Reference Range Interpretation Comme nts HEMOGLOBIN A1c (test code = 47948) 5.6 % Delfino OrtaCBC W/AUTO [id number] 00:00:00* Test Item Value Reference Range Interpretation Comme nts WBC (test code = 1001) 3.9 K/UL RBC (test code = 1002) 3.65 M/UL HEMOGLOBIN (test code = 1003) 13.6 G/DL HEMATOCRIT (test code = 1004) 38.9 % MCV (test code = 1005) 106.6 fL MCH (test code = 1006) 37.3 PG MCHC (test code = 1007) 35.0 G/DL RDW (test code = 1038) 12.7 % NEUTROPHILS (test code = 1008) 61.0 % LYMPHOCYTES (test code = 1010) 28.0 % MONOCYTES (test code = 1011) 7.3 % EOSINOPHILS (test code = 1012) 1.8 % BASOPHILS (test code = 1013) 1.6 % IMMATURE GRANULOCYTES (test code = 1036) 0.3 % NUCLEATED RBCS (test code = 1065) 0.0 /100WBC'S PLATELET COUNT (test code = 1015) 232 K/UL ABSOLUTE NEUTROPHILS (test c ode = 1066) 2.36 K/UL ABSOLUTE LYMPHOCYTES (test c ode = 1067) 1.08 K/UL ABSOLUTE MONOCYTES (test cod e = 1068) 0.28 K/UL ABSOLUTE EOSINOPHILS (test c ode = 1040) 0.07 K/UL ABSOLUTE BASOPHILS (test cod e = 1069) 0.06 K/UL ABS IMMATURE GRANULOCYTES (t est code = 1020) 0.01 K/UL ABS NUCLEATED RBCS (test cod e = 69647) 0.00 K/UL Delfino OrtaCOMPREHENSIVE METABOLIC [id number] 00:00:00* Test Item Value Reference Range Interpretation Comme nts GLUCOSE (test code = 2217) 83 MG/DL BUN (test code = 2208) 24 MG/DL CREATININE (test code = 2214) 1.32 MG/DL eGFR (2020 CKD-EPI) (test co de = 52208) 46 ML/MIN/1.73 CALC BUN/CREAT (test code = [...] (test code = 2219) 13 U/L Delfino Cedeño [id number] 09:15:45SPECIMEN NUMBER: [id number] CULTURE, URINE SPECIMEN NUMBER: [id number] SPECIMEN COMMENT: URINE SOURCE: URINE REPORT STATUS: FINAL FINAL REPORT: 08/30/2023 10-100,000 CFU/ML MIXED MICROBIAL POPULATION PRESENT, NO PREDOMINATING ORGANISMS;PROBABLE CONTAMINANTS. UNLESS OTHERWISE INDICATED, ALL TESTING PERFORMED AT [facility] [address] [place] [address] ANIMAL SKINNER: ABBI SHORT M.D. CLIA NUMBER [id number] [facility] [place]. [id number], [id number] 00:00:00* Test Item Value Reference Range Interpretation Comme nts CULTURE, URINE (test code = 32943) SPECIMEN NUMBER: [id number] Delfino Cedeño [id number] 00:00:00* Test Item Value Reference Range Interpretation Comme nts CULTURE, URINE (test code = 67660) SPECIMEN NUMBER: [id number] Delfino Cedeño, [id number] 00:00:00* Test Item Value Reference Range Interpretation Comme nts CULTURE, URINE (test code = 14666) SPECIMEN NUMBER: [id number] Delfino Cedeño, [id number] 00:00:00* Test Item Value Reference Range Interpretation Comme nts CULTURE, URINE (test code = 98141) SPECIMEN NUMBER: [id number] Delfino Cedeño, [id number] 00:00:00* Test Item Value Reference Range Interpretation Comme nts CULTURE, URINE (test code = 30057) SPECIMEN NUMBER: [id number] Delfino Cedeño, [id number] 00:00:00* Test Item Value Reference Range Interpretation Comme nts CULTURE, URINE (test code = 10613) SPECIMEN NUMBER: [id number] Delfino Cedeño, [id number] 00:00:00* Test Item Value Reference Range Interpretation Comme nts CULTURE, URINE (test code = 19985) SPECIMEN NUMBER: [id number] Delfino Cedeño [id number] 00:00:00* Test Item Value Reference Range Interpretation Comme nts CULTURE, URINE (test code = 31659) SPECIMEN NUMBER: [id number] Delfino Cedeño [id number] 00:00:00* Test Item Value Reference Range Interpretation Comme nts CULTURE, URINE (test code = 84727) SPECIMEN NUMBER: [id number] Delfino ConnollyV-1 INTEGRASE INHIBITOR [id number] 11:03:25* Test Item Value Reference Range Interpretation Comments BICTEGRAVIR (test code = 125874) Susceptible CABOTEGRAVIR (test code = 524829) Susceptible DOLUTEGRAVIR (test code = 07715) Susceptible ELVITEGRAVIR (test code = 72632) Susceptible RALTEGRAVIR (test code = 49919) Susceptible DRUG RESIST MUTATIONS (test code = 338588) INSTI (test code = 19452) None ACC RESIST MUTATIONS (test code = 929585) ACCESSORY MUT: (test code = 56492) None OTHER MUTATIONS (test code = 848595) INSTI (test code = 29700) SEE BELOW HIV-1 SUBTYPE (test code = 916538) B NATALIE HIVDB PRE[place] (test code = 411810) HIVDB_9.6 Other Mutations (INSTI): S24G, A38R, L45S, [...] with the ARV. Methodology:Testing methodology is reverse equities analyst polymerase chainreaction (RT-PCR) and next-generation sequencing (NGS) of theintegrase (IN) region of the HIV-1 polymerase (carolynn) gene. HIV-1integrase inhibitor resistance mutations and associatedsusceptibility interpretations are assigned relative to the HIV-1subtype B consensus sequence utilizing the genotypic resistanceinterpretation algorithm of the [employer] HIV Drug ResistanceDatabase (HIVDB). This test detects HIV-1 drug resistance mutations at a frequencyas low as 10%, which may account for differences in resistanceinterpretations between methods. Test results should be used andinterpreted in the context of clinical findings and other laboratorytest results. Disclaimer:This test was developed and its performance characteristicsdetermined by [facility] ([facility]). It has not beencleared or approved by the U.S. Food and Drug Administration (FDA).The FDA has determined that such clearance or approval is notnecessary. This test is used for clinical purposes and should not beregarded as investigational or for research. [facility] is qualified toperform high complexity testing under the Clinical LaboratoryImprovement Amendments (CLIA). TESTING PERFORMED AT [facility] [address] [place] [address], [address], [address] [address] CLIA NO: [id number] UNLESS OTHERWISE INDICATED, ALL TESTING PERFORMED AT [facility] [address] [place] [address] ANIMAL SKINNER: ABBI SHORT M.D. CLIA NUMBER [id number] [facility] [place]. [id number] HIV-1 INTEGRASE INHIBITOR [id number] 00:00:00* Test Item Value Reference Range Interpretation Comme nts BICTEGRAVIR (test code = 279339) Susceptible CABOTEGRAVIR (test code = 426318) Susceptible DOLUTEGRAVIR (test code = 97240) Susceptible ELVITEGRAVIR (test code = 15731) Susceptible RALTEGRAVIR (test code = 44694) Susceptible DRUG RESIST MUTATIONS (test code = 868433) INSTI (test code = 38972) None ACC RESIST MUTATIONS (test c ode = 237364) ACCESSORY MUT: (test code = 09876) None OTHER MUTATIONS (test code = 953376) INSTI (test code = 81848) SEE BELOW HIV-1 SUBTYPE (test code = 124350) B NATALIE HIVDB PRE[place] (test cod e = 358331) HIVDB_9.6 Delfino OrtaHIV-1 INTEGRASE INHIBITOR [id number] 00:00:00* Test Item Value Reference Range Interpretation Comme nts BICTEGRAVIR (test code = 104291) Susceptible CABOTEGRAVIR (test code = 081859) Susceptible DOLUTEGRAVIR (test code = 70811) Susceptible ELVITEGRAVIR (test code = 46727) Susceptible RALTEGRAVIR (test code = 38001) Susceptible DRUG RESIST MUTATIONS (test code = 370868) INSTI (test code = 06510) None ACC RESIST MUTATIONS (test c ode = 611092) ACCESSORY MUT: (test code = 80497) None OTHER MUTATIONS (test code = 423127) INSTI (test code = 47584) SEE BELOW HIV-1 SUBTYPE (test code = 985951) B DILLWYN HIVDB PREST[place] (test cod e = 052355) HIVDB_9.6 Delfino Schumacher AustinHIV-1 INTEGRASE INHIBITOR [id number] 00:00:00* Test Item Value Reference Range Interpretation Comme nts BICTEGRAVIR (test code = 861151) Susceptible CABOTEGRAVIR (test code = 417655) Susceptible DOLUTEGRAVIR (test code = 27787) Susceptible ELVITEGRAVIR (test code = 14040) Susceptible RALTEGRAVIR (test code = 14090) Susceptible DRUG RESIST MUTATIONS (test code = 184705) INSTI (test code = 17729) None ACC RESIST MUTATIONS (test c ode = 368789) ACCESSORY MUT: (test code = 23911) None OTHER MUTATIONS (test code = 157623) INSTI (test code = 18819) SEE BELOW HIV-1 SUBTYPE (test code = 604075) B DILLWYN HIVDB PRE[place] (test cod e = 728193) HIVDB_9.6 Delfino Schumacher AustinHIV-1 INTEGRASE INHIBITOR [id number] 00:00:00* Test Item Value Reference Range Interpretation Comme nts BICTEGRAVIR (test code = 579940) Susceptible CABOTEGRAVIR (test code = 772598) Susceptible DOLUTEGRAVIR (test code = 47097) Susceptible ELVITEGRAVIR (test code = 70760) Susceptible RALTEGRAVIR (test code = 71716) Susceptible DRUG RESIST MUTATIONS (test code = 231230) INSTI (test code = 06614) None ACC RESIST MUTATIONS (test c ode = 101178) ACCESSORY MUT: (test code = 11151) None OTHER MUTATIONS (test code = 541763) INSTI (test code = 78690) SEE BELOW HIV-1 SUBTYPE (test code = 657451) B DILLWYN HIVDB PRE[place] (test cod e = 298829) HIVDB_9.6 Delfino Schumacher AustinHIV-1 INTEGRASE INHIBITOR [id number] 00:00:00* Test Item Value Reference Range Interpretation Comme nts BICTEGRAVIR (test code = 271470) Susceptible CABOTEGRAVIR (test code = 166871) Susceptible DOLUTEGRAVIR (test code = 49596) Susceptible ELVITEGRAVIR (test code = 50104) Susceptible RALTEGRAVIR (test code = 75026) Susceptible DRUG RESIST MUTATIONS (test code = 645104) INSTI (test code = 30426) None ACC RESIST MUTATIONS (test c ode = 218276) ACCESSORY MUT: (test code = 00702) None OTHER MUTATIONS (test code = 792027) INSTI (test code = 59514) SEE BELOW HIV-1 SUBTYPE (test code = 663322) B DILLWYN HIVDB PRE[place] (test cod e = 535720) HIVDB_9.6 Delfino OrtaHIV-1 INTEGRASE INHIBITOR [id number] 00:00:00* Test Item Value Reference Range Interpretation Comme nts BICTEGRAVIR (test code = 264133) Susceptible CABOTEGRAVIR (test code = 896875) Susceptible DOLUTEGRAVIR (test code = 64332) Susceptible ELVITEGRAVIR (test code = 58738) Susceptible RALTEGRAVIR (test code = 66784) Susceptible DRUG RESIST MUTATIONS (test code = 861045) INSTI (test code = 93705) None ACC RESIST MUTATIONS (test c ode = 875862) ACCESSORY MUT: (test code = 94171) None OTHER MUTATIONS (test code = 278751) INSTI (test code = 56687) SEE BELOW HIV-1 SUBTYPE (test code = 936508) B DILLWYN HIVDB PRE[place] (test cod e = 966553) HIVDB_9.6 Delfino Schumacher AustinHIV-1 INTEGRASE INHIBITOR [id number] 00:00:00* Test Item Value Reference Range Interpretation Comme nts BICTEGRAVIR (test code = 423332) Susceptible CABOTEGRAVIR (test code = 713441) Susceptible DOLUTEGRAVIR (test code = 49335) Susceptible ELVITEGRAVIR (test code = 68139) Susceptible RALTEGRAVIR (test code = 73856) Susceptible DRUG RESIST MUTATIONS (test code = 711463) INSTI (test code = 38993) None ACC RESIST MUTATIONS (test c ode = 818481) ACCESSORY MUT: (test code = 68703) None OTHER MUTATIONS (test code = 525372) INSTI (test code = 44440) SEE BELOW HIV-1 SUBTYPE (test code = 109974) B DILLWYN HIVDB PRE[place] (test cod e = 531477) HIVDB_9.6 Delfino Schumacher AustinHIV-1 INTEGRASE INHIBITOR [id number] 00:00:00* Test Item Value Reference Range Interpretation Comme nts BICTEGRAVIR (test code = 518568) Susceptible CABOTEGRAVIR (test code = 721747) Susceptible DOLUTEGRAVIR (test code = 86794) Susceptible ELVITEGRAVIR (test code = 82337) Susceptible RALTEGRAVIR (test code = 11174) Susceptible DRUG RESIST MUTATIONS (test code = 856204) INSTI (test code = 38082) None ACC RESIST MUTATIONS (test c ode = 417687) ACCESSORY MUT: (test code = 90376) None OTHER MUTATIONS (test code = 423631) INSTI (test code = 26169) SEE BELOW HIV-1 SUBTYPE (test code = 529652) B DILLWYN HIVDB PRE[place] (test cod e = 745825) HIVDB_9.6 Delfino Schumacher AustinHIV-1 INTEGRASE INHIBITOR [id number] 00:00:00* Test Item Value Reference Range Interpretation Comme nts BICTEGRAVIR (test code = 975712) Susceptible CABOTEGRAVIR (test code = 442083) Susceptible DOLUTEGRAVIR (test code = 49398) Susceptible ELVITEGRAVIR (test code = 71821) Susceptible RALTEGRAVIR (test code = 64856) Susceptible DRUG RESIST MUTATIONS (test code = 398052) INSTI (test code = 81765) None ACC RESIST MUTATIONS (test c ode = 732840) ACCESSORY MUT: (test code = 26091) None OTHER MUTATIONS (test code = 878198) INSTI (test code = 75589) SEE BELOW HIV-1 SUBTYPE (test code = 123796) B DILLWYN HIVDB PRE[place] (test cod e = 291813) HIVDB_9.6 Delfino Schumacher AustinHIV-1 INTEGRASE INHIBITOR [id number] 00:00:00* Test Item Value Reference Range Interpretation Comme nts BICTEGRAVIR (test code = 186017) Susceptible CABOTEGRAVIR (test code = 989323) Susceptible DOLUTEGRAVIR (test code = 94252) Susceptible ELVITEGRAVIR (test code = 14618) Susceptible RALTEGRAVIR (test code = 07260) Susceptible DRUG RESIST MUTATIONS (test code = 412296) INSTI (test code = 80154) None ACC RESIST MUTATIONS (test c ode = 812466) ACCESSORY MUT: (test code = 01200) None OTHER MUTATIONS (test code = 387261) INSTI (test code = 33406) SEE BELOW HIV-1 SUBTYPE (test code = 389212) B DILLWYN HIVDB PREST[place] (test cod e = 515402) HIVDB_9.6 Delfino Schumacher AustinHIV-1 INTEGRASE INHIBITOR [id number] 00:00:00* Test Item Value Reference Range Interpretation Comme nts BICTEGRAVIR (test code = 660016) Susceptible CABOTEGRAVIR (test code = 890265) Susceptible DOLUTEGRAVIR (test code = 60706) Susceptible ELVITEGRAVIR (test code = 67457) Susceptible RALTEGRAVIR (test code = 56755) Susceptible DRUG RESIST MUTATIONS (test code = 334693) INSTI (test code = 41210) None ACC RESIST MUTATIONS (test c ode = 982826) ACCESSORY MUT: (test code = 54139) None OTHER MUTATIONS (test code = 839278) INSTI (test code = 25606) SEE BELOW HIV-1 SUBTYPE (test code = 057487) B DILLWYN HIVDB PRESTON (test cod e = 690773) HIVDB_9.6 Delfino Schumacher AustinHIV-1 INTEGRASE INHIBITOR [id number] 00:00:00* Test Item Value Reference Range Interpretation Comme nts BICTEGRAVIR (test code = 348646) Susceptible CABOTEGRAVIR (test code = 873424) Susceptible DOLUTEGRAVIR (test code = 01870) Susceptible ELVITEGRAVIR (test code = 70334) Susceptible RALTEGRAVIR (test code = 85600) Susceptible DRUG RESIST MUTATIONS (test code = 811010) INSTI (test code = 62217) None ACC RESIST MUTATIONS (test c ode = 578404) ACCESSORY MUT: (test code = 49051) None OTHER MUTATIONS (test code = 003113) INSTI (test code = 00956) SEE BELOW HIV-1 SUBTYPE (test code = 154344) B DILLWYN HIVDB PRESTON (test cod e = 598699) HIVDB_9.6 Delfino OrtaHIV-1 INTEGRASE INHIBITOR [id number] 00:00:00* Test Item Value Reference Range Interpretation Comme nts BICTEGRAVIR (test code = 780758) Susceptible CABOTEGRAVIR (test code = 246647) Susceptible DOLUTEGRAVIR (test code = 71271) Susceptible ELVITEGRAVIR (test code = 31721) Susceptible RALTEGRAVIR (test code = 75386) Susceptible DRUG RESIST MUTATIONS (test code = 506949) INSTI (test code = 11924) None ACC RESIST MUTATIONS (test c ode = 480366) ACCESSORY MUT: (test code = 70384) None OTHER MUTATIONS (test code = 950902) INSTI (test code = 69936) SEE BELOW HIV-1 SUBTYPE (test code = 709811) B DILLWYN HIVDB PRE[place] (test cod e = 152493) HIVDB_9.6 Delfino OrtaHIV-1 INTEGRASE INHIBITOR [id number] 00:00:00* Test Item Value Reference Range Interpretation Comme nts BICTEGRAVIR (test code = 771820) Susceptible CABOTEGRAVIR (test code = 739567) Susceptible DOLUTEGRAVIR (test code = 22512) Susceptible ELVITEGRAVIR (test code = 59686) Susceptible RALTEGRAVIR (test code = 10396) Susceptible DRUG RESIST MUTATIONS (test code = 247802) INSTI (test code = 27593) None ACC RESIST MUTATIONS (test c ode = 956467) ACCESSORY MUT: (test code = 31136) None OTHER MUTATIONS (test code = 801782) INSTI (test code = 00473) SEE BELOW HIV-1 SUBTYPE (test code = 078952) B DILLWYN HIVDB PREST[place] (test cod e = 325211) HIVDB_9.6 Delfino Schumacher AustinCD4/CD8 LYMPHOCYTE [id number] 12:40:38* Test Item Value Reference Range Interpretation Comme nts ABSOLUTE LYMPHOCYTES (test code = 53455) 941 PER UL 2664-3026 L Specimen rec eived outside of temperature specifications. Resultsreviewed by Abbi Short M.D. PERCENT CD4 (test code = 06719) 16.3 % 34.0-65.0 L ABSOLUTE CD4 (test code = 28504) 154 PER UL 520-1470 L PERCENT CD8 (test code = 12341) 52.5 % 13.0-38.0 H ABSOLUTE CD8 (test code = 43732) 494 PER UL 205-920 CD4/CD8 RATIO (test code = 18357) 0.31 0.92-3.41 L CD4/CD8 LYMPHOCYTE [id number] 00:00:00* Test Item Value Reference Range Interpretation Comme nts ABSOLUTE LYMPHOCYTES (test c ode = 68634) 941 PERUL PERCENT CD4 (test code = 02249) 16.3 % ABSOLUTE CD4 (test code = 29678) 154 PERUL PERCENT CD8 (test code = 75373) 52.5 % ABSOLUTE CD8 (test code = 92613) 494 PERUL CD4/CD8 RATIO (test code = 17566) 0.31 Delfino Schumacher AustinCD4/CD8 LYMPHOCYTE [id number] 00:00:00* Test Item Value Reference Range Interpretation Comme nts ABSOLUTE LYMPHOCYTES (test c ode = 97030) 941 PERUL PERCENT CD4 (test code = 06275) 16.3 % ABSOLUTE CD4 (test code = 02221) 154 PERUL PERCENT CD8 (test code = 94134) 52.5 % ABSOLUTE CD8 (test code = 46253) 494 PERUL CD4/CD8 RATIO (test code = 08213) 0.31 Delfino Schumacher AustinCD4/CD8 LYMPHOCYTE [id number] 00:00:00* Test Item Value Reference Range Interpretation Comme nts ABSOLUTE LYMPHOCYTES (test c ode = 04651) 941 PERUL PERCENT CD4 (test code = 96736) 16.3 % ABSOLUTE CD4 (test code = 49184) 154 PERUL PERCENT CD8 (test code = 47472) 52.5 % ABSOLUTE CD8 (test code = 42842) 494 PERUL CD4/CD8 RATIO (test code = 68189) 0.31 Delfino Schumacher AustinCD4/CD8 LYMPHOCYTE [id number] 00:00:00* Test Item Value Reference Range Interpretation Comme nts ABSOLUTE LYMPHOCYTES (test c ode = 47325) 941 PERUL PERCENT CD4 (test code = 37635) 16.3 % ABSOLUTE CD4 (test code = 25032) 154 PERUL PERCENT CD8 (test code = 51548) 52.5 % ABSOLUTE CD8 (test code = 42101) 494 PERUL CD4/CD8 RATIO (test code = 90645) 0.31 Delfino Schumacher AustinCD4/CD8 LYMPHOCYTE [id number] 00:00:00* Test Item Value Reference Range Interpretation Comme nts ABSOLUTE LYMPHOCYTES (test c ode = 18275) 941 PERUL PERCENT CD4 (test code = 27873) 16.3 % ABSOLUTE CD4 (test code = 33660) 154 PERUL PERCENT CD8 (test code = 40680) 52.5 % ABSOLUTE CD8 (test code = 39899) 494 PERUL CD4/CD8 RATIO (test code = 52750) 0.31 Delfino Schumacher AustinCD4/CD8 LYMPHOCYTE [id number] 00:00:00* Test Item Value Reference Range Interpretation Comme nts ABSOLUTE LYMPHOCYTES (test c ode = 65767) 941 PERUL PERCENT CD4 (test code = 11186) 16.3 % ABSOLUTE CD4 (test code = 85822) 154 PERUL PERCENT CD8 (test code = 21641) 52.5 % ABSOLUTE CD8 (test code = 08425) 494 PERUL CD4/CD8 RATIO (test code = 12352) 0.31 Delfino Schumacher AustinCD4/CD8 LYMPHOCYTE [id number] 00:00:00* Test Item Value Reference Range Interpretation Comme nts ABSOLUTE LYMPHOCYTES (test c ode = 14599) 941 PERUL PERCENT CD4 (test code = 09727) 16.3 % ABSOLUTE CD4 (test code = 04993) 154 PERUL PERCENT CD8 (test code = 66570) 52.5 % ABSOLUTE CD8 (test code = 29291) 494 PERUL CD4/CD8 RATIO (test code = 22736) 0.31 Delfino Schumacher AustinCD4/CD8 LYMPHOCYTE [id number] 00:00:00* Test Item Value Reference Range Interpretation Comme nts ABSOLUTE LYMPHOCYTES (test c ode = 30794) 941 PERUL PERCENT CD4 (test code = 46664) 16.3 % ABSOLUTE CD4 (test code = 13931) 154 PERUL PERCENT CD8 (test code = 55853) 52.5 % ABSOLUTE CD8 (test code = 37781) 494 PERUL CD4/CD8 RATIO (test code = 06125) 0.31 Delfino Schumacher AustinCD4/CD8 LYMPHOCYTE [id number] 00:00:00* Test Item Value Reference Range Interpretation Comme nts ABSOLUTE LYMPHOCYTES (test c ode = 19585) 941 PERUL PERCENT CD4 (test code = 22772) 16.3 % ABSOLUTE CD4 (test code = 70512) 154 PERUL PERCENT CD8 (test code = 99652) 52.5 % ABSOLUTE CD8 (test code = 80923) 494 PERUL CD4/CD8 RATIO (test code = 74644) 0.31 Delfino Schumacher AustinCD4/CD8 LYMPHOCYTE [id number] 00:00:00* Test Item Value Reference Range Interpretation Comme nts ABSOLUTE LYMPHOCYTES (test c ode = 43839) 941 PERUL PERCENT CD4 (test code = 69342) 16.3 % ABSOLUTE CD4 (test code = 05353) 154 PERUL PERCENT CD8 (test code = 34666) 52.5 % ABSOLUTE CD8 (test code = 49594) 494 PERUL CD4/CD8 RATIO (test code = 74568) 0.31 Delfino Schumacher AustinCD4/CD8 LYMPHOCYTE [id number] 00:00:00* Test Item Value Reference Range Interpretation Comme nts ABSOLUTE LYMPHOCYTES (test c ode = 84703) 941 PERUL PERCENT CD4 (test code = 10339) 16.3 % ABSOLUTE CD4 (test code = 26259) 154 PERUL PERCENT CD8 (test code = 09016) 52.5 % ABSOLUTE CD8 (test code = 24225) 494 PERUL CD4/CD8 RATIO (test code = 09184) 0.31 Delfino Schumacher AustinCD4/CD8 LYMPHOCYTE [id number] 00:00:00* Test Item Value Reference Range Interpretation Comme nts ABSOLUTE LYMPHOCYTES (test c ode = 80960) 941 PERUL PERCENT CD4 (test code = 65909) 16.3 % ABSOLUTE CD4 (test code = 57616) 154 PERUL PERCENT CD8 (test code = 71476) 52.5 % ABSOLUTE CD8 (test code = 55572) 494 PERUL CD4/CD8 RATIO (test code = 68609) 0.31 Delfino Schumacher AustinCD4/CD8 LYMPHOCYTE [id number] 00:00:00* Test Item Value Reference Range Interpretation Comme nts ABSOLUTE LYMPHOCYTES (test c ode = 19898) 941 PERUL PERCENT CD4 (test code = 76034) 16.3 % ABSOLUTE CD4 (test code = 83679) 154 PERUL PERCENT CD8 (test code = 54623) 52.5 % ABSOLUTE CD8 (test code = 60175) 494 PERUL CD4/CD8 RATIO (test code = 80127) 0.31 Delfino Schumacher AustinCD4/CD8 LYMPHOCYTE [id number] 00:00:00* Test Item Value Reference Range Interpretation Comme nts ABSOLUTE LYMPHOCYTES (test c ode = 42799) 941 PERUL PERCENT CD4 (test code = 64275) 16.3 % ABSOLUTE CD4 (test code = 92125) 154 PERUL PERCENT CD8 (test code = 72360) 52.5 % ABSOLUTE CD8 (test code = 61561) 494 PERUL CD4/CD8 RATIO (test code = 67357) 0.31 Delfino Schumacher [facility] W/AUTO DIFF WITH [id number] 11:40:06* Test Item Value Reference Range Interpretation [...] 0.00-0.10 ABS NUCLEATED RBCS (test code = 32129) 0.00 K/UL 0.00-0.11 COMMENTS (test code = 1016) (NOTE) MODERATE MACROCY TOSIS SLIGHT TOXIC GRANULATION PLATELETS APPEAR NORMAL SEE ADDITIONAL COMMENTS BELOW: SLIGHT VACUOLIZATION OF NEUTROPHILS COMPREHENSIVE METABOLIC [id number] 05:24:56* Test Item Value Reference Range Interpretation Comme nts GLUCOSE (test code = 2217) 90 MG/DL 70-99 BUN (test code = 2207) 40 MG/DL 8-23 H CREATININE (test code = 2214) 2.05 MG/DL 0.60-1.30 H eGFR (2020 CKD-EPI) (test co de = 27068) 27 ML/MIN/1.73 >60 L CALC BUN/CREAT (test [...] code = 2219) 16 U/L 5-40 LIPID [id number] 05:24:56* Test Item Value Reference Range Interpretation [...] SPECIMENS. FOR MOREINFORMATION, SEE CLIENT ANNOUNCEMENT AT [email or web address] RATIO LDL/HDL (test code = 2238) 0.91 RATIO <3.22 CBC W/AUTO [id number] 00:00:00* Test Item Value Reference Range Interpretation [...] ABS NUCLEATED RBCS (test cod e = 66484) 0.00 K/UL COMMENTS (test code = 1016) (NOTE) Delfino OrtaCOMPREHENSIVE METABOLIC [id number] 00:00:00* Test Item Value Reference Range Interpretation Comme nts GLUCOSE (test code = 2217) 90 MG/DL BUN (test code = 2208) 40 MG/DL CREATININE (test code = 2214) 2.05 MG/DL eGFR (2020 CKD-EPI) (test co de = 87585) 27 ML/MIN/1.73 CALC BUN/CREAT (test code = [...] code = 2219) 16 U/L Delfino OrtaLIPID [id number] 00:00:00* Test Item Value Reference Range Interpretation Comme nts CHOLESTEROL (test code = 2210) 212 MG/DL TRIGLYCERIDES (test code = 2232) 80 MG/DL HDL CHOLESTEROL (test code = 2220) 102 MG/DL CALC LDL CHOL (test code = 2237) 93 MG/DL RISK RATIO LDL/HDL (test cod e = 2238) 0.91 RATIO Delfino OrtaCBC W/AUTO [id number] 00:00:00* Test Item Value Reference Range Interpretation [...] ABS NUCLEATED RBCS (test cod e = 39707) 0.00 K/UL COMMENTS (test code = 1016) (NOTE) Delfino OrtaCOMPREHENSIVE METABOLIC [id number] 00:00:00* Test Item Value Reference Range Interpretation Comme nts GLUCOSE (test code = 2217) 90 MG/DL BUN (test code = 2208) 40 MG/DL CREATININE (test code = 2214) 2.05 MG/DL eGFR (2020 CKD-EPI) (test co de = 95376) 27 ML/MIN/1.73 CALC BUN/CREAT (test code = [...] code = 2219) 16 U/L Delfino OrtaLIPID [id number] 00:00:00* Test Item Value Reference Range Interpretation Comme nts CHOLESTEROL (test code = 2210) 212 MG/DL TRIGLYCERIDES (test code = 2232) 80 MG/DL HDL CHOLESTEROL (test code = 2220) 102 MG/DL CALC LDL CHOL (test code = 2237) 93 MG/DL RISK RATIO LDL/HDL (test cod e = 2238) 0.91 RATIO Delfino OrtaCBC W/AUTO [id number] 00:00:00* Test Item Value Reference Range Interpretation [...] ABS NUCLEATED RBCS (test cod e = 91174) 0.00 K/UL COMMENTS (test code = 1016) (NOTE) Delfino OrtaCOMPREHENSIVE METABOLIC [id number] 00:00:00* Test Item Value Reference Range Interpretation Comme nts GLUCOSE (test code = 2217) 90 MG/DL BUN (test code = 2208) 40 MG/DL CREATININE (test code = 2214) 2.05 MG/DL eGFR (2020 CKD-EPI) (test co de = 63456) 27 ML/MIN/1.73 CALC BUN/CREAT (test code = [...] code = 2219) 16 U/L Delfino OrtaLIPID [id number] 00:00:00* Test Item Value Reference Range Interpretation Comme nts CHOLESTEROL (test code = 2210) 212 MG/DL TRIGLYCERIDES (test code = 2232) 80 MG/DL HDL CHOLESTEROL (test code = 2220) 102 MG/DL CALC LDL CHOL (test code = 2237) 93 MG/DL RISK RATIO LDL/HDL (test cod e = 2238) 0.91 RATIO Delfino OrtaCBC W/AUTO [id number] 00:00:00* Test Item Value Reference Range Interpretation [...] ABS NUCLEATED RBCS (test cod e = 18993) 0.00 K/UL COMMENTS (test code = 1016) (NOTE) Delfino Schumacher YouCOMPREHENSIVE METABOLIC [id number] 00:00:00* Test Item Value Reference Range Interpretation Comme nts GLUCOSE (test code = 2217) 90 MG/DL BUN (test code = 2208) 40 MG/DL CREATININE (test code = 2214) 2.05 MG/DL eGFR (2020 CKD-EPI) (test co de = 11330) 27 ML/MIN/1.73 CALC BUN/CREAT (test code = [...] code = 2219) 16 U/L Delfino OrtaLIPID [id number] 00:00:00* Test Item Value Reference Range Interpretation Comme nts CHOLESTEROL (test code = 2210) 212 MG/DL TRIGLYCERIDES (test code = 2232) 80 MG/DL HDL CHOLESTEROL (test code = 2220) 102 MG/DL CALC LDL CHOL (test code = 2237) 93 MG/DL RISK RATIO LDL/HDL (test cod e = 2238) 0.91 RATIO Delfino OrtaCBC W/AUTO [id number] 00:00:00* Test Item Value Reference Range Interpretation [...] ABS NUCLEATED RBCS (test cod e = 31825) 0.00 K/UL COMMENTS (test code = 1016) (NOTE) Delfino OrtaCOMPREHENSIVE METABOLIC [id number] 00:00:00* Test Item Value Reference Range Interpretation Comme nts GLUCOSE (test code = 2217) 90 MG/DL BUN (test code = 2208) 40 MG/DL CREATININE (test code = 2214) 2.05 MG/DL eGFR (2020 CKD-EPI) (test co de = 63351) 27 ML/MIN/1.73 CALC BUN/CREAT (test code = [...] code = 2219) 16 U/L Delfino OrtaLIPID [id number] 00:00:00* Test Item Value Reference Range Interpretation Comme nts CHOLESTEROL (test code = 2210) 212 MG/DL TRIGLYCERIDES (test code = 2232) 80 MG/DL HDL CHOLESTEROL (test code = 2220) 102 MG/DL CALC LDL CHOL (test code = 2237) 93 MG/DL RISK RATIO LDL/HDL (test cod e = 2238) 0.91 RATIO Delfino OrtaCBC W/AUTO [id number] 00:00:00* Test Item Value Reference Range Interpretation [...] ABS NUCLEATED RBCS (test cod e = 24438) 0.00 K/UL COMMENTS (test code = 1016) (NOTE) Delfino OrtaCOMPREHENSIVE METABOLIC [id number] 00:00:00* Test Item Value Reference Range Interpretation Comme nts GLUCOSE (test code = 2217) 90 MG/DL BUN (test code = 2208) 40 MG/DL CREATININE (test code = 2214) 2.05 MG/DL eGFR (2020 CKD-EPI) (test co de = 61319) 27 ML/MIN/1.73 CALC BUN/CREAT (test code = [...] code = 2219) 16 U/L Delfino OrtaLIPID [id number] 00:00:00* Test Item Value Reference Range Interpretation Comme nts CHOLESTEROL (test code = 2210) 212 MG/DL TRIGLYCERIDES (test code = 2232) 80 MG/DL HDL CHOLESTEROL (test code = 2220) 102 MG/DL CALC LDL CHOL (test code = 2237) 93 MG/DL RISK RATIO LDL/HDL (test cod e = 2238) 0.91 RATIO Delfino OrtaCBC W/AUTO [id number] 00:00:00* Test Item Value Reference Range Interpretation [...] ABS NUCLEATED RBCS (test cod e = 15461) 0.00 K/UL COMMENTS (test code = 1016) (NOTE) Delfino OrtaCOMPREHENSIVE METABOLIC [id number] 00:00:00* Test Item Value Reference Range Interpretation Comme nts GLUCOSE (test code = 2217) 90 MG/DL BUN (test code = 2208) 40 MG/DL CREATININE (test code = 2214) 2.05 MG/DL eGFR (2020 CKD-EPI) (test co de = 00270) 27 ML/MIN/1.73 CALC BUN/CREAT (test code = [...] code = 2219) 16 U/L Delfino OrtaLIPID [id number] 00:00:00* Test Item Value Reference Range Interpretation Comme nts CHOLESTEROL (test code = 2210) 212 MG/DL TRIGLYCERIDES (test code = 2232) 80 MG/DL HDL CHOLESTEROL (test code = 2220) 102 MG/DL CALC LDL CHOL (test code = 2237) 93 MG/DL RISK RATIO LDL/HDL (test cod e = 2238) 0.91 RATIO Delfino OrtaCBC W/AUTO [id number] 00:00:00* Test Item Value Reference Range Interpretation [...] ABS NUCLEATED RBCS (test cod e = 19090) 0.00 K/UL COMMENTS (test code = 1016) (NOTE) Delfino Endy YouCOMPREHENSIVE METABOLIC [id number] 00:00:00* Test Item Value Reference Range Interpretation Comme nts GLUCOSE (test code = 2217) 90 MG/DL BUN (test code = 2208) 40 MG/DL CREATININE (test code = 2214) 2.05 MG/DL eGFR (2020 CKD-EPI) (test co de = 70941) 27 ML/MIN/1.73 CALC BUN/CREAT (test code = [...] code = 2219) 16 U/L Delfino OrtaLIPID [id number] 00:00:00* Test Item Value Reference Range Interpretation Comme nts CHOLESTEROL (test code = 2210) 212 MG/DL TRIGLYCERIDES (test code = 2232) 80 MG/DL HDL CHOLESTEROL (test code = 2220) 102 MG/DL CALC LDL CHOL (test code = 2237) 93 MG/DL RISK RATIO LDL/HDL (test cod e = 2238) 0.91 RATIO Delfino OrtaCBC W/AUTO [id number] 00:00:00* Test Item Value Reference Range Interpretation [...] ABS NUCLEATED RBCS (test cod e = 75814) 0.00 K/UL COMMENTS (test code = 1016) (NOTE) Delfino OrtaCOMPREHENSIVE METABOLIC [id number] 00:00:00* Test Item Value Reference Range Interpretation Comme nts GLUCOSE (test code = 2217) 90 MG/DL BUN (test code = 2208) 40 MG/DL CREATININE (test code = 2214) 2.05 MG/DL eGFR (2020 CKD-EPI) (test co de = 42800) 27 ML/MIN/1.73 CALC BUN/CREAT (test code = [...] code = 2219) 16 U/L Delfino OrtaLIPID [id number] 00:00:00* Test Item Value Reference Range Interpretation Comme nts CHOLESTEROL (test code = 2210) 212 MG/DL TRIGLYCERIDES (test code = 2232) 80 MG/DL HDL CHOLESTEROL (test code = 2220) 102 MG/DL CALC LDL CHOL (test code = 2237) 93 MG/DL RISK RATIO LDL/HDL (test cod e = 2238) 0.91 RATIO Delfino OrtaCBC W/AUTO [id number] 00:00:00* Test Item Value Reference Range Interpretation [...] ABS NUCLEATED RBCS (test cod e = 36634) 0.00 K/UL COMMENTS (test code = 1016) (NOTE) Delfino OrtaCOMPREHENSIVE METABOLIC [id number] 00:00:00* Test Item Value Reference Range Interpretation Comme nts GLUCOSE (test code = 2217) 90 MG/DL BUN (test code = 2208) 40 MG/DL CREATININE (test code = 2214) 2.05 MG/DL eGFR (2020 CKD-EPI) (test co de = 48417) 27 ML/MIN/1.73 CALC BUN/CREAT (test code = [...] code = 2219) 16 U/L Delfino OrtaLIPID [id number] 00:00:00* Test Item Value Reference Range Interpretation Comme nts CHOLESTEROL (test code = 2210) 212 MG/DL TRIGLYCERIDES (test code = 2232) 80 MG/DL HDL CHOLESTEROL (test code = 2220) 102 MG/DL CALC LDL CHOL (test code = 2237) 93 MG/DL RISK RATIO LDL/HDL (test cod e = 2238) 0.91 RATIO Delfino OrtaCBC W/AUTO [id number] 00:00:00* Test Item Value Reference Range Interpretation [...] ABS NUCLEATED RBCS (test cod e = 50831) 0.00 K/UL COMMENTS (test code = 1016) (NOTE) Delfino OrtaCOMPREHENSIVE METABOLIC [id number] 00:00:00* Test Item Value Reference Range Interpretation Comme nts GLUCOSE (test code = 2217) 90 MG/DL BUN (test code = 2208) 40 MG/DL CREATININE (test code = 2214) 2.05 MG/DL eGFR (2020 CKD-EPI) (test co de = 47078) 27 ML/MIN/1.73 CALC BUN/CREAT (test code = [...] code = 2219) 16 U/L Delfino OrtaLIPID [id number] 00:00:00* Test Item Value Reference Range Interpretation Comme nts CHOLESTEROL (test code = 2210) 212 MG/DL TRIGLYCERIDES (test code = 2232) 80 MG/DL HDL CHOLESTEROL (test code = 2220) 102 MG/DL CALC LDL CHOL (test code = 2237) 93 MG/DL RISK RATIO LDL/HDL (test cod e = 2238) 0.91 RATIO Delfino OrtaCBC W/AUTO [id number] 00:00:00* Test Item Value Reference Range Interpretation [...] ABS NUCLEATED RBCS (test cod e = 30116) 0.00 K/UL COMMENTS (test code = 1016) (NOTE) Delfino OrtaCOMPREHENSIVE METABOLIC [id number] 00:00:00* Test Item Value Reference Range Interpretation Comme nts GLUCOSE (test code = 2217) 90 MG/DL BUN (test code = 2208) 40 MG/DL CREATININE (test code = 2214) 2.05 MG/DL eGFR (2020 CKD-EPI) (test co de = 66122) 27 ML/MIN/1.73 CALC BUN/CREAT (test code = [...] code = 2219) 16 U/L Delfino OrtaLIPID [id number] 00:00:00* Test Item Value Reference Range Interpretation Comme nts CHOLESTEROL (test code = 2210) 212 MG/DL TRIGLYCERIDES (test code = 2232) 80 MG/DL HDL CHOLESTEROL (test code = 2220) 102 MG/DL CALC LDL CHOL (test code = 2237) 93 MG/DL RISK RATIO LDL/HDL (test cod e = 2238) 0.91 RATIO Delfino OrtaCBC W/AUTO [id number] 00:00:00* Test Item Value Reference Range Interpretation [...] ABS NUCLEATED RBCS (test cod e = 64313) 0.00 K/UL COMMENTS (test code = 1016) (NOTE) Delfino OrtaCOMPREHENSIVE METABOLIC [id number] 00:00:00* Test Item Value Reference Range Interpretation Comme nts GLUCOSE (test code = 2217) 90 MG/DL BUN (test code = 2208) 40 MG/DL CREATININE (test code = 2214) 2.05 MG/DL eGFR (2020 CKD-EPI) (test co de = 88236) 27 ML/MIN/1.73 CALC BUN/CREAT (test code = [...] (test code = 2219) 16 U/L Delfino Endy YouLIPID [id number] 00:00:00* Test Item Value Reference Range Interpretation Comme nts CHOLESTEROL (test code = 2210) 212 MG/DL TRIGLYCERIDES (test code = 2232) 80 MG/DL HDL CHOLESTEROL (test code = 2220) 102 MG/DL CALC LDL CHOL (test code = 2237) 93 MG/DL RISK RATIO LDL/HDL (test cod e = 2238) 0.91 RATIO Delfino Schumacher YouCBC W/AUTO [id number] 00:00:00* Test Item Value Reference Range Interpretation [...] ABS NUCLEATED RBCS (test cod e = 58103) 0.00 K/UL COMMENTS (test code = 1016) (NOTE) Delfino OrtaCOMPREHENSIVE METABOLIC [id number] 00:00:00* Test Item Value Reference Range Interpretation Comme nts GLUCOSE (test code = 2217) 90 MG/DL BUN (test code = 2208) 40 MG/DL CREATININE (test code = 2214) 2.05 MG/DL eGFR (2020 CKD-EPI) (test co de = 61429) 27 ML/MIN/1.73 CALC BUN/CREAT (test code = [...] code = 2219) 16 U/L Delfino OrtaLIPID [id number] 00:00:00* Test Item Value Reference Range Interpretation Comme nts CHOLESTEROL (test code = 2210) 212 MG/DL TRIGLYCERIDES (test code = 2232) 80 MG/DL HDL CHOLESTEROL (test code = 2220) 102 MG/DL CALC LDL CHOL (test code = 2237) 93 MG/DL RISK RATIO LDL/HDL (test cod e = 2238) 0.91 RATIO Delfino OrtaCbc with [id number] 19:43:14* Test Item Value Reference Range Interpretation [...] 33.6 g/dL 31.6-35.1 RDW-SD (test code = 12110-7) 54.3 fL 39.0-49.9 H RDW-CV (test code = 788-0) 13.4 % 12.0-15.5 PLT (test code = 777-3) 133 166-358 L MPV (test code = 42624-0) 11.5 fL 9.5-12.9 IPF % (test code = 7777257721) 5.6 % 1.3-7.7 Platelet count measured by fluorescence method. NRBC/100 WBC (test code = 0013732160) 0.0 0.0-10.0 NRBC x10^3 (test code = 4279391506) See_Comment [Automated messa ge] The system which generated this result transmitted reference range: 10*3/?L. The reference range was not used to interpret this result as normal/abnormal. GRAN MAT (NEUT) % (test code = 770-8) 91.9 % IMM GRAN % (test code = 8995667457) 0.30 % LYMPH % (test code = 736-9) 5.6 % MONO % (test code = 5905-5) 2.1 % EOS % (test code = 713-8) 0.0 % BASO % (test code = 706-2) 0.1 % GRAN MAT x10^3(ANC) (test code = 4008866861) 7.05 10*3/uL 1.88-7.09 IMM GRAN x10^3 (test code = 5379560429) 0.00-0.06 LYMPH x10^3 (test code = 731-0) 0.43 10*3/uL 1.32-3.29 L MONO x10^3 (test code = 742-7) 0.16 10*3/uL 0.33-0.92 L EOS x10^3 (test code = 711-2) 0.03-0.39 L BASO x10^3 (test code = 704-7) 0.01-0.07 Lab Interpretation (test code = 26381-8) [facility] (97993)2023-05-17 19:32:09* Test Item Value Reference Range Interpretation Comme nts NA (test code = 4152260317) 139 mmol/L 135-145 K (test code = 9378834256) 3.9 mmol/L 3.5-5.0 CL (test code = 2594890003) 115 mmol/L 98-108 H CO2 TOTAL (test code = 9624562010) 16 mmol/L 23-31 L AGAP (test code = 5159262728) 8 2-16 BUN (test code = 9231286293) 30 mg/dL 7-23 H GLUCOSE (test code = 4069856824) 173 mg/dL 70-110 H CREATININE (test code = 2160-0) 1.69 mg/dL 0.50-1.04 H TOTAL BILI (test code = 1227017984) 0.4 mg/dL 0.1-1.1 CALCIUM (test code = 4563163724) 10.1 mg/dL 8.6-10.6 T PROTEIN (test code = 8078285769) 8.5 g/dL 6.3-8.2 H ALBUMIN (test code = 3633202269) 3.9 g/dL 3.5-5.0 ALK PHOS (test code = 1661025762) 76 U/L 34-122 ALTv (test code = 1742-6) 35 U/L 5-35 AST(SGOT) (test code = 6114764637) 54 U/L 13-40 H eGFR (test code = 48674-6) 34.4 mL/min/1.73m2 CKD-EPI eGFR (2020). Assuming creatinine has been stable day-to-day for at least three months, the eGFR indicates Category G3b (30 - 44 mL/min/1.73 m2) Lab Interpretation (test code = 35551-9) [facility]normal [facility] CenterTran[facility]hor[facility] echo (TTE)2023-05-17 15:37:06* Test Item Value Reference Range Interpretation Comme nts Height (test code = 9458194482) 63 in Weight (test code = 6849360700) 140 lbs Systolic BP (test code = 5179660602) 118 mmHg Diastolic BP (test code = 2863783347) 58 mmHg Heart Rate (test code = 9393737163) 78 bpm BSA (test code = 1021708478) 1.66 m2 Ao root diam (test code = 2178869511) 2.90 cm Aortic root (test code = 8034819498) 2.9 cm Ao root annulus (test code = 9447246385) 2.9 cm LVOT diameter (test code = 8560859035) 1.96 cm LVOT area (test code = 0387473534) 3.00 cm2 LA size (test code = 0485384330) 3.2 cm LVIDD (test code = 2124607762) 2.90 cm Left Ventricular End Diastolic Volume by Teichholz Method (test code = 3859538) 32.6 mL IVS (test code = 2204384866) 1.26 cm Interventricular Septum Diastolic Thickness by 2D (test code = 0160021) 1.26 cm LVPWD (test code = 0214848948) 1.23 cm PW (test code = 7673063845) 1.23 cm 0.6-1.1 EF(Teich) (test code = 1552026600) 55.00 % LVIDS (test code = 0505907994) 2.11 cm Left Ventricular End Systolic Volume by Teichholz Method (test code = 7718701) 14.7 mL FS (test code = 3628916391) 27 % EF - 2D (test code = 14820610) 55.00 % LAV(MOD-sp4) (test code = 3525104026) 20.20 mL E wave decelartion time (test code = 6476904980) 0.18 s MV Peak E Barber (test code = 4271618519) 72.8 cm/s MV stenosis pressure 1/2 time (test code = 3523380002) 51.2 ms MV Peak A Barber (test code = 3526191595) 73.4 cm/s E/A ratio (test code = 6740890533) 0.99 ratio MV Prop V (test code = 6189131857) 180.80 cm/s MV E/e' septal (test code = 9763770128) 10.8 cm/s Tapse (test code = 5514658672) 2.08 cm LVOT stroke volume (test code = 6422783039) 73.30 cm3 LVOT peak barber (test code = 5668542033) 125.3 cm/s LVOT mn grad (test code = 6417545588) 3.6 mmHg AV LVOT peak gradient (test code = 3170392272) 6.3 mmHg LVOT peak VTI (test code = 9704685753) 24.3 cm LV V1 mean (test code = 9905763387) 89.60 cm/s Aortic valve mean velocity (test code = 0801510142) 236.9 cm/s Ao peak barber (test code = 9065869483) 333.6 cm/s Ao VTI (test code = 4824641852) 58.2 cm AV area by cont VTI (test code = 1238983496) 1.3 cm2 AV area peak barber (test code = 0473652045) 1.1 cm2 Ao max PG (test code = 1930391088) 44.60 mm[Hg] AV peak gradient (test code = 6107401559) 44.6 mmHg AV valve area (test code = 9191294453) 1.26 cm2 AV mean gradient (test code = 9681834742) 24.9 mmHg Radiology Study observation (narrative) (test code = 32980-6) GARRY (test code = GARRY) Table formatting [...] 2D, color flow Doppler and spectral Doppler. [facility] WITH [id number] 19:09:02* Test Item Value Reference Range Interpretation [...] 33.5 g/dL 31.6-35.1 RDW-SD (test code = 19094-3) 55.2 fL 39.0-49.9 H RDW-CV (test code = 788-0) 13.4 % 12.0-15.5 PLT (test code = 777-3) 142 166-358 L MPV (test code = 52474-2) 11.4 fL 9.5-12.9 NRBC/100 WBC (test code = 1732425887) 0.0 0.0-10.0 NRBC x10^3 (test code = 7873890514) See_Comment [Automated [employer] ge] The system which generated this result transmitted reference range: 10*3/?L. The reference range was not used to interpret this result as normal/abnormal. GRAN MAT (NEUT) % (test code = 770-8) 62.9 % IMM GRAN % (test code = 6914795151) 0.40 % LYMPH % (test code = 736-9) 27.3 % MONO % (test code = 5905-5) 9.0 % EOS % (test code = 713-8) 0.2 % BASO % (test code = 706-2) 0.2 % GRAN MAT x10^3(ANC) (test code = 3904396755) 3.30 10*3/uL 1.88-7.09 IMM GRAN x10^3 (test code = 4403901094) 0.00-0.06 LYMPH x10^3 (test code = 731-0) 1.43 10*3/uL 1.32-3.29 MONO x10^3 (test code = 742-7) 0.47 10*3/uL 0.33-0.92 EOS x10^3 (test code = 711-2) 0.03-0.39 L BASO x10^3 (test code = 704-7) 0.01-0.07 Lab Interpretation (test code = 32797-9) [facility]normal [facility] CenterTROPONIN [id number] 18:52:52* Test Item Value Reference Range Interpretation Comme nts TROPONIN I (test code = 4253614220) 0.160 ng/mL <=0.034 H GARRY (test code = GARYR) Reference (Normal) Range (defined by the 99th [...] of biotin. Lab Interpretation (test code = 77836-1) Abnormal [facility] CenterCOMP. METABOLIC PANEL (44672)2023-05-16 18:41:47* Test Item Value Reference Range Interpretation Comme nts NA (test code = 9323716356) 143 mmol/L 135-145 K (test code = 5251306064) 3.9 mmol/L 3.5-5.0 CL (test code = 0900508820) 116 mmol/L 98-108 H CO2 TOTAL (test code = 4829296874) 15 mmol/L 23-31 L AGAP (test code = 8210307730) 12 2-16 BUN (test code = 4976861099) 29 mg/dL 7-23 H GLUCOSE (test code = 5724407887) 104 mg/dL 70-110 CREATININE (test code = 2160-0) 1.90 mg/dL 0.50-1.04 H TOTAL BILI (test code = 5597826997) 0.5 mg/dL 0.1-1.1 CALCIUM (test code = 5694112164) 10.2 mg/dL 8.6-10.6 T PROTEIN (test code = 7766167158) 9.8 g/dL 6.3-8.2 H ALBUMIN (test code = 5923639523) 4.6 g/dL 3.5-5.0 ALK PHOS (test code = 4847650099) 103 U/L 34-122 ALTv (test code = 1742-6) 44 U/L 5-35 H AST(SGOT) (test code = 5661857848) 54 U/L 13-40 H eGFR (test code = 06306-7) 29.9 mL/min/1.73m2 Lab Interpretation (test cod e = 28123-1) Abnormal [facility] CenterLIPASE, [id number] 18:41:26* Test Item Value Reference Range Interpretation Comme nts LIPASE (test code = 6183138263) 123 U/L 0-220 Lab Interpretation (test cod e = 01497-4) Normal [facility] CenterAc[facility] Venous Blood [id number] 18:29:21 * Test Item Value Reference Range Interpretation Comme nts PH (test code = 7034828645) 7.25 7.32-7.42 L PCO2 BEBA (test code = 6542774519) 40 41-51 L PO2 BEBA (test code = 0520688896) 27 25-40 HCO3 BEBA (test code = 2022322993) 17 24-28 L AC VBE(BEAKER) (test code = 9814521797) -9.3 mEq/L Lab Interpretation (test cod e = 00343-1) Abnormal [facility] CenterXR CHEST 1 [id number] 18:03:51HISTORY: Cough and SOB. TECHNIQUE: Portable AP [...] Acute findings could be secondary to viral infection.[facility] CenterCUKELLY, [id number] 08:50:21SPECIMEN NUMBER: [id number] CULTURE, URINE SPECIMEN NUMBER: [id number] SPECIMEN COMMENT: URINE SOURCE: URINE REPORT STATUS: FINAL FINAL REPORT: 05/11/2023 10-50,000 CFU/ML UROGENITAL KARLA PRESENT NO COMMON PATHOGENSCULTURE, [id number] 00:00:00* Test Item Value Reference Range Interpretation Comme nts CULTURE, URINE (test code = 91447) SPECIMEN NUMBER: [id number] Delfino SarmientoLTNIALL, [id number] 00:00:00* Test Item Value Reference Range Interpretation Comme nts CULTURE, URINE (test code = 07500) SPECIMEN NUMBER: [id number] Delfino Cedeño, [id number] 00:00:00* Test Item Value Reference Range Interpretation Comme nts CULTURE, URINE (test code = 20937) SPECIMEN NUMBER: [id number] Delfino SarmientoLTNIALL, [id number] 00:00:00* Test Item Value Reference Range Interpretation Comme nts CULTURE, URINE (test code = 28498) SPECIMEN NUMBER: [id number] Delfino SarmientoLTNIALL, [id number] 00:00:00* Test Item Value Reference Range Interpretation Comme nts CULTURE, URINE (test code = 02001) SPECIMEN NUMBER: [id number] Delfino OrtaCULTNIALL, [id number] 00:00:00* Test Item Value Reference Range Interpretation Comme nts CULTURE, URINE (test code = 90459) SPECIMEN NUMBER: [id number] Delfino OrtaCULTURE, [id number] 00:00:00* Test Item Value Reference Range Interpretation Comme nts CULTURE, URINE (test code = 46476) SPECIMEN NUMBER: [id number] Delfino OrtaCULTNIALL, [id number] 00:00:00* Test Item Value Reference Range Interpretation Comme nts CULTURE, URINE (test code = 47897) SPECIMEN NUMBER: [id number] Delfino Cedeño, [id number] 00:00:00* Test Item Value Reference Range Interpretation Comme nts CULTURE, URINE (test code = 49004) SPECIMEN NUMBER: [id number] Delfino Cedeño [id number] 00:00:00* Test Item Value Reference Range Interpretation Comme nts CULTURE, URINE (test code = 63949) SPECIMEN NUMBER: [id number] Delfino Cedeño, [id number] 00:00:00* Test Item Value Reference Range Interpretation Comme nts CULTURE, URINE (test code = 00051) SPECIMEN NUMBER: [id number] Delfino Cedeño [id number] 00:00:00* Test Item Value Reference Range Interpretation Comme nts CULTURE, URINE (test code = 90951) SPECIMEN NUMBER: [id number] Delfino Cedeño [id number] 00:00:00* Test Item Value Reference Range Interpretation Comme nts CULTURE, URINE (test code = 99090) SPECIMEN NUMBER: [id number] Delfino Cedeño, [id number] 00:00:00* Test Item Value Reference Range Interpretation Comme nts CULTURE, URINE (test code = 55452) SPECIMEN NUMBER: [id number] ANGEL [id number] 00:00:00* Test Item Value Reference Range Interpretation Comme nts CULTURE, URINE (test code = 84370) SPECIMEN NUMBER: [id number] Delfino OrtaVAGINAL PATHOGENS DNA [id number] 14:05:30* Test Item Value Reference Range Interpretation Comme nts DIANNA SPECIES (test code = 74671) NEGATIVE NEGATIVE G. VAGINALIS (test code = 06379) NEGATIVE NEGATIVE T. VAGINALIS (test code = 24300) NEGATIVE NEGATIVE Note: The [facility] VPIII Microbial Identification Testis a DNA probe test intended for use in the detectionand identification of Dianna species, Gardnerellavaginalis and Trichomonas vaginalis nucleic acid. CT/NG, NAAT, [id number] 12:17:23* Test Item Value Reference Range Interpretation Comme nts CHLAMYDIA, NAAT, URINE (test code = 68713) NEGATIVE NEGATIVE Testing is perfo rmed with Epifanio JOSE 6800/8800 systems usingreal-time polymerase chain reaction (PCR) method. A negative result does not exclude low level infection, specimensampling error, or collection error. GONORRHEA, NAAT, URINE (test code = 97373) NEGATIVE NEGATIVE Testing is perfo rmed with Epifanio JOSE 6800/8800 systems usingreal-time polymerase chain reaction (PCR) method. A negative result does not exclude low level infection, specimensampling error, or collection error. UNLESS OTHERWISE INDICATED, ALL TESTING PERFORMED AT [facility] [address] [place] [address] ANIMAL SKINNER: ABBI SHORT M.D. [place] NUMBER [id number] [facility] [place]. [id number] [place]/NG, TMA, [id number] 00:00:00* Test Item Value Reference Range Interpretation Comme nts CHLAMYDIA, NAAT, URINE (test code = 40454) NEGATIVE GONORRHEA, NAAT, URINE (test code = 28231) NEGATIVE Delfino F AustinCT/NG, TMA, [id number] 00:00:00* Test Item Value Reference Range Interpretation Comme nts CHLAMYDIA, NAAT, URINE (test code = 10470) NEGATIVE GONORRHEA, NAAT, URINE (test code = 68539) NEGATIVE Delfino F AustinVAGINAL PATHOGENS DNA [id number] 00:00:00* Test Item Value Reference Range Interpretation Comme nts DIANNA SPECIES (test code = 99879) NEGATIVE G. VAGINALIS (test code = 19228) NEGATIVE T. VAGINALIS (test code = 29373) NEGATIVE Delfino F AustinCT/NG, TMA, [id number] 00:00:00* Test Item Value Reference Range Interpretation Comme nts CHLAMYDIA, NAAT, URINE (test code = 40419) NEGATIVE GONORRHEA, NAAT, URINE (test code = 11706) NEGATIVE Delfino F AustinVAGINAL PATHOGENS DNA [id number] 00:00:00* Test Item Value Reference Range Interpretation Comme nts DIANNA SPECIES (test code = 99443) NEGATIVE G. VAGINALIS (test code = 68361) NEGATIVE T. VAGINALIS (test code = 75562) NEGATIVE Delfino F AustinCT/NG, TMA, [id number] 00:00:00* Test Item Value Reference Range Interpretation Comme nts CHLAMYDIA, NAAT, URINE (test code = 16672) NEGATIVE GONORRHEA, NAAT, URINE (test code = 30745) NEGATIVE Delfino F AustinVAGINAL PATHOGENS DNA [id number] 00:00:00* Test Item Value Reference Range Interpretation Comme nts DIANNA SPECIES (test code = ) NEGATIVE G. VAGINALIS (test code = 59574) NEGATIVE T. VAGINALIS (test code = 26966) NEGATIVE Delfino F AustinCT/NG, TMA, [id number] 00:00:00* Test Item Value Reference Range Interpretation Comme nts CHLAMYDIA, NAAT, URINE (test code = 32393) NEGATIVE GONORRHEA, NAAT, URINE (test code = 02979) NEGATIVE Delfino F AustinVAGINAL PATHOGENS DNA [id number] 00:00:00* Test Item Value Reference Range Interpretation Comme nts DIANNA SPECIES (test code = ) NEGATIVE G. VAGINALIS (test code = 45783) NEGATIVE T. VAGINALIS (test code = 72833) NEGATIVE Delfino F AustinCT/NG, TMA, [id number] 00:00:00* Test Item Value Reference Range Interpretation Comme nts CHLAMYDIA, NAAT, URINE (test code = 06175) NEGATIVE GONORRHEA, NAAT, URINE (test code = 30147) NEGATIVE Delfino F AustinVAGINAL PATHOGENS DNA [id number] 00:00:00* Test Item Value Reference Range Interpretation Comme nts DIANNA SPECIES (test code = ) NEGATIVE G. VAGINALIS (test code = 20880) NEGATIVE T. VAGINALIS (test code = 73630) NEGATIVE Delfino F AustinCT/NG, TMA, [id number] 00:00:00* Test Item Value Reference Range Interpretation Comme nts CHLAMYDIA, NAAT, URINE (test code = 23959) NEGATIVE GONORRHEA, NAAT, URINE (test code = 26011) NEGATIVE Delfino F AustinVAGINAL PATHOGENS DNA [id number] 00:00:00* Test Item Value Reference Range Interpretation Comme nts DIANNA SPECIES (test code = 21207) NEGATIVE G. VAGINALIS (test code = 10091) NEGATIVE T. VAGINALIS (test code = 90932) NEGATIVE Delfino F AustinCT/NG, TMA, [id number] 00:00:00* Test Item Value Reference Range Interpretation Comme nts CHLAMYDIA, NAAT, URINE (test code = 04865) NEGATIVE GONORRHEA, NAAT, URINE (test code = 47945) NEGATIVE Delfino F AustinVAGINAL PATHOGENS DNA [id number] 00:00:00* Test Item Value Reference Range Interpretation Comme nts DIANNA SPECIES (test code = ) NEGATIVE G. VAGINALIS (test code = 35423) NEGATIVE T. VAGINALIS (test code = 02928) NEGATIVE Delfino F AustinCT/NG, TMA, [id number] 00:00:00* Test Item Value Reference Range Interpretation Comme nts CHLAMYDIA, NAAT, URINE (test code = 91464) NEGATIVE GONORRHEA, NAAT, URINE (test code = 82654) NEGATIVE Delfino F AustinVAGINAL PATHOGENS DNA [id number] 00:00:00* Test Item Value Reference Range Interpretation Comme nts DIANNA SPECIES (test code = ) NEGATIVE G. VAGINALIS (test code = 21369) NEGATIVE T. VAGINALIS (test code = 48132) NEGATIVE Delfino F AustinCT/NG, TMA, [id number] 00:00:00* Test Item Value Reference Range Interpretation Comme nts CHLAMYDIA, NAAT, URINE (test code = 36542) NEGATIVE GONORRHEA, NAAT, URINE (test code = 06957) NEGATIVE Delfino F AustinVAGINAL PATHOGENS DNA [id number] 00:00:00* Test Item Value Reference Range Interpretation Comme nts DIANNA SPECIES (test code = ) NEGATIVE G. VAGINALIS (test code = 18619) NEGATIVE T. VAGINALIS (test code = 83017) NEGATIVE Delfino F AustinCT/NG, TMA, [id number] 00:00:00* Test Item Value Reference Range Interpretation Comme nts CHLAMYDIA, NAAT, URINE (test code = 27700) NEGATIVE GONORRHEA, NAAT, URINE (test code = 67019) NEGATIVE Delfino F AustinVAGINAL PATHOGENS DNA [id number] 00:00:00* Test Item Value Reference Range Interpretation Comme nts DIANNA SPECIES (test code = 32018) NEGATIVE G. VAGINALIS (test code = 92655) NEGATIVE T. VAGINALIS (test code = 00826) NEGATIVE Delfino F AustinCT/NG, TMA, [id number] 00:00:00* Test Item Value Reference Range Interpretation Comme nts CHLAMYDIA, NAAT, URINE (test code = 35506) NEGATIVE GONORRHEA, NAAT, URINE (test code = 23965) NEGATIVE Delfino Endy AustinVAGINAL PATHOGENS DNA [id number] 00:00:00* Test Item Value Reference Range Interpretation Comme nts DIANNA SPECIES (test code = ) NEGATIVE G. VAGINALIS (test code = 24939) NEGATIVE T. VAGINALIS (test code = 59697) NEGATIVE Delfino F AustinCT/NG, TMA, [id number] 00:00:00* Test Item Value Reference Range Interpretation Comme nts CHLAMYDIA, NAAT, URINE (test code = 89922) NEGATIVE GONORRHEA, NAAT, URINE (test code = 43298) NEGATIVE Delfino Endy AustinVAGINAL PATHOGENS DNA [id number] 00:00:00* Test Item Value Reference Range Interpretation Comme nts DIANNA SPECIES (test code = ) NEGATIVE G. VAGINALIS (test code = 16874) NEGATIVE T. VAGINALIS (test code = 23262) NEGATIVE Delfino F AustinCT/NG, TMA, [id number] 00:00:00* Test Item Value Reference Range Interpretation Comme nts CHLAMYDIA, NAAT, URINE (test code = 41898) NEGATIVE GONORRHEA, NAAT, URINE (test code = 24386) NEGATIVE Delfino Schumacher AustinVAGINAL PATHOGENS DNA [id number] 00:00:00* Test Item Value Reference Range Interpretation Comme nts DIANNA SPECIES (test code = ) NEGATIVE G. VAGINALIS (test code = 57907) NEGATIVE T. VAGINALIS (test code = 60314) NEGATIVE Delfino F AustinVAGINAL PATHOGENS DNA [id number] 00:00:00* Test Item Value Reference Range Interpretation Comme nts DIANNA SPECIES (test code = 96870) NEGATIVE G. VAGINALIS (test code = 00368) NEGATIVE T. VAGINALIS (test code = 08219) NEGATIVE Delfino F AustinCT/NG, TMA, [id number] 00:00:00* Test Item Value Reference Range Interpretation Comme nts CHLAMYDIA, NAAT, URINE (test code = 76258) NEGATIVE GONORRHEA, NAAT, URINE (test code = 48890) NEGATIVE Delfino Schumacher AustinVAGINAL PATHOGENS DNA [id number] 00:00:00* Test Item Value Reference Range Interpretation Comme nts DIANNA SPECIES (test code = 78512) NEGATIVE G. VAGINALIS (test code = 95136) NEGATIVE T. VAGINALIS (test code = 65687) NEGATIVE Delfino Schumacher [id number] 20:25:19* Test Item Value Reference Range Interpretation Comme nts CALCIUM (test code = 2209) 10.6 MG/DL 8.5-10.5 H [id number] 20:25:10* Test Item Value Reference Range Interpretation Comme nts PHOSPHORUS (test code = 2227) 2.9 MG/DL 2.5-4.5 UNLESS OTHERWISE INDICATED, ALL TESTING PERFORMED AT [facility] [address] [place] [address] ANIMAL SKINNER: ABBI SHORT M.D. [place] NUMBER [id number] [facility] [place]. [id number] CALCIUM, [id number] 09:33:19* Test Item Value Reference Range Interpretation Comme nts CALCIUM, IONIZED (test code = 66427) 5.50 MG/DL 4.70-5.90 INTACT [id number] 09:28:17* Test Item Value Reference Range Interpretation Comme nts INTACT PTH (test code = 5005) 60 PG/ML 15-65 [id number] 00:00:00* Test Item Value Reference Range Interpretation Comme nts CALCIUM (test code = 2209) 10.6 MG/DL Delfino Schumacher [id number] 00:00:00* Test Item Value Reference Range Interpretation Comme nts CALCIUM (test code = 2209) 10.6 MG/DL Delfino F [id number] 00:00:00* Test Item Value Reference Range Interpretation Comme nts PHOSPHORUS (test code = 2227) 2.9 MG/DL Delfino F AustinINTACT [id number] 00:00:00* Test Item Value Reference Range Interpretation Comme nts INTACT PTH (test code = 5005) 60 PG/ML Delfino F AustinCALCIUM, [id number] 00:00:00* Test Item Value Reference Range Interpretation Comme nts CALCIUM, IONIZED (test code = 89726) 5.50 MG/DL Delfino Schumacher [id number] 00:00:00* Test Item Value Reference Range Interpretation Comme nts CALCIUM (test code = 2209) 10.6 MG/DL Delfino Schumacher [id number] 00:00:00* Test Item Value Reference Range Interpretation Comme nts PHOSPHORUS (test code = 2227) 2.9 MG/DL Delfino Schumacher [id number] 00:00:00* Test Item Value Reference Range Interpretation Comme nts PHOSPHORUS (test code = 2227) 2.9 MG/DL Delfino Schumacher AustinINTACT [id number] 00:00:00* Test Item Value Reference Range Interpretation Comme nts INTACT PTH (test code = 5005) 60 PG/ML Delfino Schumacher AustinCALCIUM, [id number] 00:00:00* Test Item Value Reference Range Interpretation Comme nts CALCIUM, IONIZED (test code = 08058) 5.50 MG/DL Delfino Schumacher [id number] 00:00:00* Test Item Value Reference Range Interpretation Comme nts CALCIUM (test code = 2209) 10.6 MG/DL Delfino Schumacher [id number] 00:00:00* Test Item Value Reference Range Interpretation Comme nts PHOSPHORUS (test code = 2227) 2.9 MG/DL Delfino Schumacher AustinINTACT [id number] 00:00:00* Test Item Value Reference Range Interpretation Comme nts INTACT PTH (test code = 5005) 60 PG/ML Delfino Schumacher AustinCALCIUM, [id number] 00:00:00* Test Item Value Reference Range Interpretation Comme nts CALCIUM, IONIZED (test code = 69200) 5.50 MG/DL Delfino Schumacher [id number] 00:00:00* Test Item Value Reference Range Interpretation Comme nts CALCIUM (test code = 2209) 10.6 MG/DL Delfino Schumacher [id number] 00:00:00* Test Item Value Reference Range Interpretation Comme nts PHOSPHORUS (test code = 2227) 2.9 MG/DL Delfino Schumacher AustinINTACT [id number] 00:00:00* Test Item Value Reference Range Interpretation Comme nts INTACT PTH (test code = 5005) 60 PG/ML Delfino Schumacher AustinCALCIUM, [id number] 00:00:00* Test Item Value Reference Range Interpretation Comme nts CALCIUM, IONIZED (test code = 55063) 5.50 MG/DL Delfino Schumacher [id number] 00:00:00* Test Item Value Reference Range Interpretation Comme nts CALCIUM (test code = 2209) 10.6 MG/DL Delfino Schumacher [id number] 00:00:00* Test Item Value Reference Range Interpretation Comme nts PHOSPHORUS (test code = 2227) 2.9 MG/DL Delfino Schumacher AustinINTACT [id number] 00:00:00* Test Item Value Reference Range Interpretation Comme nts INTACT PTH (test code = 5005) 60 PG/ML Delfino OrtaCALCIUM, [id number] 00:00:00* Test Item Value Reference Range Interpretation Comme nts CALCIUM, IONIZED (test code = 86081) 5.50 MG/DL Delfino Schumacher [id number] 00:00:00* Test Item Value Reference Range Interpretation Comme nts CALCIUM (test code = 2209) 10.6 MG/DL Delfino Schumachre [id number] 00:00:00* Test Item Value Reference Range Interpretation Comme nts PHOSPHORUS (test code = 2227) 2.9 MG/DL Delfino Schumacher AustinINTACT [id number] 00:00:00* Test Item Value Reference Range Interpretation Comme nts INTACT PTH (test code = 5005) 60 PG/ML Delfino OrtaCALCIUM, [id number] 00:00:00* Test Item Value Reference Range Interpretation Comme nts CALCIUM, IONIZED (test code = 65599) 5.50 MG/DL Delfino Schumacher [id number] 00:00:00* Test Item Value Reference Range Interpretation Comme nts CALCIUM (test code = 2209) 10.6 MG/DL Delfino Schumacher [id number] 00:00:00* Test Item Value Reference Range Interpretation Comme nts PHOSPHORUS (test code = 2227) 2.9 MG/DL Delfino Schumacher AustinINTACT [id number] 00:00:00* Test Item Value Reference Range Interpretation Comme nts INTACT PTH (test code = 5005) 60 PG/ML Delfino Schumacher AustinCALCIUM, [id number] 00:00:00* Test Item Value Reference Range Interpretation Comme nts CALCIUM, IONIZED (test code = 33528) 5.50 MG/DL Delfino Schumacher [id number] 00:00:00* Test Item Value Reference Range Interpretation Comme nts CALCIUM (test code = 2209) 10.6 MG/DL Delfino Schumacher [id number] 00:00:00* Test Item Value Reference Range Interpretation Comme nts PHOSPHORUS (test code = 2227) 2.9 MG/DL Delfino Schumacher AustinINTACT [id number] 00:00:00* Test Item Value Reference Range Interpretation Comme nts INTACT PTH (test code = 5005) 60 PG/ML Delfino Schumacher AustinCALCIUM, [id number] 00:00:00* Test Item Value Reference Range Interpretation Comme nts CALCIUM, IONIZED (test code = 72763) 5.50 MG/DL Delfino Schumacher [id number] 00:00:00* Test Item Value Reference Range Interpretation Comme nts CALCIUM (test code = 2209) 10.6 MG/DL Delfino Schumacher [id number] 00:00:00* Test Item Value Reference Range Interpretation Comme nts PHOSPHORUS (test code = 2227) 2.9 MG/DL Delfino Schumacher AustinINTACT [id number] 00:00:00* Test Item Value Reference Range Interpretation Comme nts INTACT PTH (test code = 5005) 60 PG/ML Delfino Schumacher AustinCALCIUM, [id number] 00:00:00* Test Item Value Reference Range Interpretation Comme nts CALCIUM, IONIZED (test code = 24123) 5.50 MG/DL Delfino Schumacher [id number] 00:00:00* Test Item Value Reference Range Interpretation Comme nts CALCIUM (test code = 2209) 10.6 MG/DL Delfino Schumacher [id number] 00:00:00* Test Item Value Reference Range Interpretation Comme nts PHOSPHORUS (test code = 2227) 2.9 MG/DL Delfino Schumacher AustinINTACT [id number] 00:00:00* Test Item Value Reference Range Interpretation Comme nts INTACT PTH (test code = 5005) 60 PG/ML Delfino Schumacher AustinINTACT [id number] 00:00:00* Test Item Value Reference Range Interpretation Comme nts INTACT PTH (test code = 5005) 60 PG/ML Delfino Schumacher AustinCALCIUM, [id number] 00:00:00* Test Item Value Reference Range Interpretation Comme nts CALCIUM, IONIZED (test code = 12239) 5.50 MG/DL Delfino Schumacher [id number] 00:00:00* Test Item Value Reference Range Interpretation Comme nts CALCIUM (test code = 2209) 10.6 MG/DL Delfino Schumacher [id number] 00:00:00* Test Item Value Reference Range Interpretation Comme nts PHOSPHORUS (test code = 2227) 2.9 MG/DL Delfino Schumacher AustinINTACT [id number] 00:00:00* Test Item Value Reference Range Interpretation Comme nts INTACT PTH (test code = 5005) 60 PG/ML Delfino Schumacher AustinCALCIUM, [id number] 00:00:00* Test Item Value Reference Range Interpretation Comme nts CALCIUM, IONIZED (test code = 08648) 5.50 MG/DL Delfino Schumacher [id number] 00:00:00* Test Item Value Reference Range Interpretation Comme nts CALCIUM (test code = 2209) 10.6 MG/DL Delfino Schumacher [id number] 00:00:00* Test Item Value Reference Range Interpretation Comme nts PHOSPHORUS (test code = 2227) 2.9 MG/DL Delfino Schumacher AustinINTACT [id number] 00:00:00* Test Item Value Reference Range Interpretation Comme nts INTACT PTH (test code = 5005) 60 PG/ML Delfino Schumacher AustinCALCIUM, [id number] 00:00:00* Test Item Value Reference Range Interpretation Comme nts CALCIUM, IONIZED (test code = 98839) 5.50 MG/DL Delfino Schumacher AustinCALCIUM, [id number] 00:00:00* Test Item Value Reference Range Interpretation Comme nts CALCIUM, IONIZED (test code = 15833) 5.50 MG/DL Delfino Schumacher [id number] 00:00:00* Test Item Value Reference Range Interpretation Comme nts CALCIUM (test code = 2209) 10.6 MG/DL Delfino Schumacher [id number] 00:00:00* Test Item Value Reference Range Interpretation Comme nts PHOSPHORUS (test code = 2227) 2.9 MG/DL Delfino Schumacher AustinINTACT [id number] 00:00:00* Test Item Value Reference Range Interpretation Comme nts INTACT PTH (test code = 5005) 60 PG/ML Delfino OrtaCALCIUM, [id number] 00:00:00* Test Item Value Reference Range Interpretation Comme nts CALCIUM, IONIZED (test code = 64526) 5.50 MG/DL Delfino Schumacher [id number] 00:00:00* Test Item Value Reference Range Interpretation Comme nts CALCIUM (test code = 2209) 10.6 MG/DL Delfino Schumacher [id number] 00:00:00* Test Item Value Reference Range Interpretation Comme nts PHOSPHORUS (test code = 2227) 2.9 MG/DL Delfino Schumacher AustinINTACT [id number] 00:00:00* Test Item Value Reference Range Interpretation Comme nts INTACT PTH (test code = 5005) 60 PG/ML Delfino OrtaCALCIUM, [id number] 00:00:00* Test Item Value Reference Range Interpretation Comme nts CALCIUM, IONIZED (test code = 75994) 5.50 MG/DL Delfino OrtaCULTNIALL, [id number] 09:25:56SPECIMEN NUMBER: [id number] CULTURE, URINE SPECIMEN NUMBER: [id number] SPECIMEN COMMENT: URINE SOURCE: URINE REPORT STATUS: FINAL FINAL REPORT: 03/09/2023 10-50,000 CFU/ML UROGENITAL KARLA PRESENT NO COMMON PATHOGENSCULTURE, [id number] 00:00:00* Test Item Value Reference Range Interpretation Comme nts CULTURE, URINE (test code = 54170) SPECIMEN NUMBER: [id number] Delfino OrtaCULTURE, [id number] 00:00:00* Test Item Value Reference Range Interpretation Comme nts CULTURE, URINE (test code = 34370) SPECIMEN NUMBER: [id number] Delfino OrtaCULTURE, [id number] 00:00:00* Test Item Value Reference Range Interpretation Comme nts CULTURE, URINE (test code = 01661) SPECIMEN NUMBER: [id number] Delfino Cedeño [id number] 00:00:00* Test Item Value Reference Range Interpretation Comme nts CULTURE, URINE (test code = 74743) SPECIMEN NUMBER: [id number] ANGEL [id number] 00:00:00* Test Item Value Reference Range Interpretation Comme nts CULTURE, URINE (test code = 07458) SPECIMEN NUMBER: [id number] Delfino Cedeño [id number] 00:00:00* Test Item Value Reference Range Interpretation Comme nts CULTURE, URINE (test code = 88557) SPECIMEN NUMBER: [id number] ANGEL [id number] 00:00:00* Test Item Value Reference Range Interpretation Comme nts CULTURE, URINE (test code = 02963) SPECIMEN NUMBER: [id number] Delfino Cedeño [id number] 00:00:00* Test Item Value Reference Range Interpretation Comme nts CULTURE, URINE (test code = 44504) SPECIMEN NUMBER: [id number] Delfino Cedeño [id number] 00:00:00* Test Item Value Reference Range Interpretation Comme nts CULTURE, URINE (test code = 33358) SPECIMEN NUMBER: [id number] Delfino Cedeño [id number] 00:00:00* Test Item Value Reference Range Interpretation Comme nts CULTURE, URINE (test code = 54845) SPECIMEN NUMBER: [id number] Delfino Cedeño [id number] 00:00:00* Test Item Value Reference Range Interpretation Comme nts CULTURE, URINE (test code = 32906) SPECIMEN NUMBER: [id number] Delfino Cedeño [id number] 00:00:00* Test Item Value Reference Range Interpretation Comme nts CULTURE, URINE (test code = 80429) SPECIMEN NUMBER: [id number] Delfino Cedeño [id number] 00:00:00* Test Item Value Reference Range Interpretation Comme nts CULTURE, URINE (test code = 29736) SPECIMEN NUMBER: [id number] Delfino Cedeño, [id number] 00:00:00* Test Item Value Reference Range Interpretation Comme nts CULTURE, URINE (test code = 66422) SPECIMEN NUMBER: [id number] Delfino Cedeño, [id number] 00:00:00* Test Item Value Reference Range Interpretation Comme nts CULTURE, URINE (test code = 92179) SPECIMEN NUMBER: [id number] Delfino OrtaCOMPREHENSIVE METABOLIC [id number] 04:45:25* Test Item Value Reference Range Interpretation Comme nts GLUCOSE (test code = 7) 87 MG/DL 70-99 BUN (test code = 2207) 32 MG/DL 8-23 H CREATININE (test code = 2214) 1.39 MG/DL 0.60-1.30 H eGFR (2020 CKD-EPI) (test co de = 60639) 43 ML/MIN/1.73 >60 L CALC BUN/CREAT (test [...] code = 2219) 32 U/L 5-40 LIPID [id number] 04:45:25* Test Item Value Reference Range Interpretation [...] SPECIMENS. FOR MOREINFORMATION, SEE CLIENT ANNOUNCEMENT AT [email or web address] [email or web address] RATIO LDL/HDL (test code = 2238) 0.58 RATIO <3.22 UNLESS OTHERW ISE INDICATED, ALL TESTING PERFORMED AT [facility] [address] [place] [id number] ANIMAL SKINNER: ABBI SHORT M.D. CLIA NUMBER [id number] [facility] [place]. [id number] LIPID [id number] 00:00:00* Test Item Value Reference Range Interpretation Comme nts CHOLESTEROL (test code = 2210) 187 MG/DL TRIGLYCERIDES (test code = 2232) 58 MG/DL HDL CHOLESTEROL (test code = 2220) 110 MG/DL CALC LDL CHOL (test code = 2237) 64 MG/DL RISK RATIO LDL/HDL (test cod e = 2238) 0.58 RATIO Delfino Schumacher AustinLIPID [id number] 00:00:00* Test Item Value Reference Range Interpretation Comme nts CHOLESTEROL (test code = 2210) 187 MG/DL TRIGLYCERIDES (test code = 2232) 58 MG/DL HDL CHOLESTEROL (test code = 2220) 110 MG/DL CALC LDL CHOL (test code = 2237) 64 MG/DL RISK RATIO LDL/HDL (test cod e = 2238) 0.58 RATIO Delfino OrtaCOMPREHENSIVE METABOLIC [id number] 00:00:00* Test Item Value Reference Range Interpretation Comme nts GLUCOSE (test code = 2217) 87 MG/DL BUN (test code = 2208) 32 MG/DL CREATININE (test code = 2214) 1.39 MG/DL eGFR (2020 CKD-EPI) (test co de = 02815) 43 ML/MIN/1.73 CALC BUN/CREAT (test code = [...] code = 2219) 32 U/L Delfino Schumacher NewportLIPID [id number] 00:00:00* Test Item Value Reference Range Interpretation Comme nts CHOLESTEROL (test code = 2210) 187 MG/DL TRIGLYCERIDES (test code = 2232) 58 MG/DL HDL CHOLESTEROL (test code = 2220) 110 MG/DL CALC LDL CHOL (test code = 2237) 64 MG/DL RISK RATIO LDL/HDL (test cod e = 2238) 0.58 RATIO Delfino Schumacher YouCOMPREHENSIVE METABOLIC [id number] 00:00:00* Test Item Value Reference Range Interpretation Comme nts GLUCOSE (test code = 2217) 87 MG/DL BUN (test code = 2208) 32 MG/DL CREATININE (test code = 2214) 1.39 MG/DL eGFR (2020 CKD-EPI) (test co de = 64609) 43 ML/MIN/1.73 CALC BUN/CREAT (test code = [...] = 2219) 32 U/L Delfino Schumacher AustinLIPID [id number] 00:00:00* Test Item Value Reference Range Interpretation Comme nts CHOLESTEROL (test code = 2210) 187 MG/DL TRIGLYCERIDES (test code = 2232) 58 MG/DL HDL CHOLESTEROL (test code = 2220) 110 MG/DL CALC LDL CHOL (test code = 2237) 64 MG/DL RISK RATIO LDL/HDL (test cod e = 2238) 0.58 RATIO Delfino OrtaCOMPREHENSIVE METABOLIC [id number] 00:00:00* Test Item Value Reference Range Interpretation Comme nts GLUCOSE (test code = 2217) 87 MG/DL BUN (test code = 2208) 32 MG/DL CREATININE (test code = 2214) 1.39 MG/DL eGFR (2020 CKD-EPI) (test co de = 11498) 43 ML/MIN/1.73 CALC BUN/CREAT (test code = [...] = 2219) 32 U/L Delfino Schumacher [place] [id number] 00:00:00* Test Item Value Reference Range Interpretation Comme nts CHOLESTEROL (test code = 2210) 187 MG/DL TRIGLYCERIDES (test code = 2232) 58 MG/DL HDL CHOLESTEROL (test code = 2220) 110 MG/DL CALC LDL CHOL (test code = 2237) 64 MG/DL RISK RATIO LDL/HDL (test cod e = 2238) 0.58 RATIO Delfino OrtaCOMPREHENSIVE METABOLIC [id number] 00:00:00* Test Item Value Reference Range Interpretation Comme nts GLUCOSE (test code = 2217) 87 MG/DL BUN (test code = 2208) 32 MG/DL CREATININE (test code = 2214) 1.39 MG/DL eGFR (2020 CKD-EPI) (test co de = 68336) 43 ML/MIN/1.73 CALC BUN/CREAT (test code = [...] = 2219) 32 U/L Delfino Schumacher [place]IP[place] [id number] 00:00:00* Test Item Value Reference Range Interpretation Comme nts CHOLESTEROL (test code = 2210) 187 MG/DL TRIGLYCERIDES (test code = 2232) 58 MG/DL HDL CHOLESTEROL (test code = 2220) 110 MG/DL CALC LDL CHOL (test code = 2237) 64 MG/DL RISK RATIO LDL/HDL (test cod e = 2238) 0.58 RATIO Delfino OrtaCOMPREHENSIVE METABOLIC [id number] 00:00:00* Test Item Value Reference Range Interpretation Comme nts GLUCOSE (test code = 2217) 87 MG/DL BUN (test code = 2208) 32 MG/DL CREATININE (test code = 2214) 1.39 MG/DL eGFR (2020 CKD-EPI) (test co de = 37757) 43 ML/MIN/1.73 CALC BUN/CREAT (test code = [...] code = 2219) 32 U/L Delfino Schumacher [place] [id number] 00:00:00* Test Item Value Reference Range Interpretation Comme nts CHOLESTEROL (test code = 2210) 187 MG/DL TRIGLYCERIDES (test code = 2232) 58 MG/DL HDL CHOLESTEROL (test code = 2220) 110 MG/DL CALC LDL CHOL (test code = 2237) 64 MG/DL RISK RATIO LDL/HDL (test cod e = 2238) 0.58 RATIO Delfino OrtaCOMPREHENSIVE METABOLIC [id number] 00:00:00* Test Item Value Reference Range Interpretation Comme nts GLUCOSE (test code = 2217) 87 MG/DL BUN (test code = 2208) 32 MG/DL CREATININE (test code = 2214) 1.39 MG/DL eGFR (2020 CKD-EPI) (test co de = 66586) 43 ML/MIN/1.73 CALC BUN/CREAT (test code = [...] = 2219) 32 U/L Delfino Schumacher AustinLIPID [id number] 00:00:00* Test Item Value Reference Range Interpretation Comme nts CHOLESTEROL (test code = 2210) 187 MG/DL TRIGLYCERIDES (test code = 2232) 58 MG/DL HDL CHOLESTEROL (test code = 2220) 110 MG/DL CALC LDL CHOL (test code = 2237) 64 MG/DL RISK RATIO LDL/HDL (test cod e = 2238) 0.58 RATIO Delfino Endy YouCOMPREHENSIVE METABOLIC [id number] 00:00:00* Test Item Value Reference Range Interpretation Comme nts GLUCOSE (test code = 2217) 87 MG/DL BUN (test code = 2208) 32 MG/DL CREATININE (test code = 2214) 1.39 MG/DL eGFR (2020 CKD-EPI) (test co de = 80238) 43 ML/MIN/1.73 CALC BUN/CREAT (test code = [...] (test code = 2219) 32 U/L Delfino F AustinLIPID [id number] 00:00:00* Test Item Value Reference Range Interpretation Comme nts CHOLESTEROL (test code = 2210) 187 MG/DL TRIGLYCERIDES (test code = 2232) 58 MG/DL HDL CHOLESTEROL (test code = 2220) 110 MG/DL CALC LDL CHOL (test code = 2237) 64 MG/DL RISK RATIO LDL/HDL (test cod e = 2238) 0.58 RATIO Delfino OrtaCOMPREHENSIVE METABOLIC [id number] 00:00:00* Test Item Value Reference Range Interpretation Comme nts GLUCOSE (test code = 2217) 87 MG/DL BUN (test code = 2208) 32 MG/DL CREATININE (test code = 2214) 1.39 MG/DL eGFR (2020 CKD-EPI) (test co de = 35996) 43 ML/MIN/1.73 CALC BUN/CREAT (test code = [...] code = 2219) 32 U/L Delfino OrtaLIPID [id number] 00:00:00* Test Item Value Reference Range Interpretation Comme nts CHOLESTEROL (test code = 2210) 187 MG/DL TRIGLYCERIDES (test code = 2232) 58 MG/DL HDL CHOLESTEROL (test code = 2220) 110 MG/DL CALC LDL CHOL (test code = 2237) 64 MG/DL RISK RATIO LDL/HDL (test cod e = 2238) 0.58 RATIO Delfino OrtaCOMPREHENSIVE METABOLIC [id number] 00:00:00* Test Item Value Reference Range Interpretation Comme nts GLUCOSE (test code = 2217) 87 MG/DL BUN (test code = 2208) 32 MG/DL CREATININE (test code = 2214) 1.39 MG/DL eGFR (2020 CKD-EPI) (test co de = 36052) 43 ML/MIN/1.73 CALC BUN/CREAT (test code = [...] code = 2219) 32 U/L Delfino OrtaLIPID [id number] 00:00:00* Test Item Value Reference Range Interpretation Comme nts CHOLESTEROL (test code = 2210) 187 MG/DL TRIGLYCERIDES (test code = 2232) 58 MG/DL HDL CHOLESTEROL (test code = 2220) 110 MG/DL CALC LDL CHOL (test code = 2237) 64 MG/DL RISK RATIO LDL/HDL (test cod e = 2238) 0.58 RATIO Delfion Endy YouCOMPREHENSIVE METABOLIC [id number] 00:00:00* Test Item Value Reference Range Interpretation Comme nts GLUCOSE (test code = 2217) 87 MG/DL BUN (test code = 2208) 32 MG/DL CREATININE (test code = 2214) 1.39 MG/DL eGFR (2020 CKD-EPI) (test co de = 86370) 43 ML/MIN/1.73 CALC BUN/CREAT (test code = [...] code = 2219) 32 U/L Delfino OrtaLIPID [id number] 00:00:00* Test Item Value Reference Range Interpretation Comme nts CHOLESTEROL (test code = 2210) 187 MG/DL TRIGLYCERIDES (test code = 2232) 58 MG/DL HDL CHOLESTEROL (test code = 2220) 110 MG/DL CALC LDL CHOL (test code = 2237) 64 MG/DL RISK RATIO LDL/HDL (test cod e = 2238) 0.58 RATIO Delfino OrtaCOMPREHENSIVE METABOLIC [id number] 00:00:00* Test Item Value Reference Range Interpretation Comme nts GLUCOSE (test code = 2217) 87 MG/DL BUN (test code = 2208) 32 MG/DL CREATININE (test code = 2214) 1.39 MG/DL eGFR (2020 CKD-EPI) (test co de = 45796) 43 ML/MIN/1.73 CALC BUN/CREAT (test code = [...] code = 2219) 32 U/L Delfino OrtaLIPID [id number] 00:00:00* Test Item Value Reference Range Interpretation Comme nts CHOLESTEROL (test code = 2210) 187 MG/DL TRIGLYCERIDES (test code = 2232) 58 MG/DL HDL CHOLESTEROL (test code = 2220) 110 MG/DL CALC LDL CHOL (test code = 2237) 64 MG/DL RISK RATIO LDL/HDL (test cod e = 2238) 0.58 RATIO Delfino OrtaCOMPREHENSIVE METABOLIC [id number] 00:00:00* Test Item Value Reference Range Interpretation Comme nts GLUCOSE (test code = 2217) 87 MG/DL BUN (test code = 2208) 32 MG/DL CREATININE (test code = 2214) 1.39 MG/DL eGFR (2020 CKD-EPI) (test co de = 10596) 43 ML/MIN/1.73 CALC BUN/CREAT (test code = [...] (test code = 2219) 32 U/L Delfino OrtaCOMPREHENSIVE METABOLIC [id number] 00:00:00* Test Item Value Reference Range Interpretation Comme nts GLUCOSE (test code = 2217) 87 MG/DL BUN (test code = 2208) 32 MG/DL CREATININE (test code = 2214) 1.39 MG/DL eGFR (2020 CKD-EPI) (test co de = 41338) 43 ML/MIN/1.73 CALC BUN/CREAT (test code = [...] code = 2219) 32 U/L Delfino Schumacher NewportLIPID [id number] 00:00:00* Test Item Value Reference Range Interpretation Comme nts CHOLESTEROL (test code = 2210) 187 MG/DL TRIGLYCERIDES (test code = 2232) 58 MG/DL HDL CHOLESTEROL (test code = 2220) 110 MG/DL CALC LDL CHOL (test code = 2237) 64 MG/DL RISK RATIO LDL/HDL (test cod e = 2238) 0.58 RATIO Delfino Schumacher YouCOMPREHENSIVE METABOLIC [id number] 00:00:00* Test Item Value Reference Range Interpretation Comme nts GLUCOSE (test code = 2217) 87 MG/DL BUN (test code = 2208) 32 MG/DL CREATININE (test code = 2214) 1.39 MG/DL eGFR (2020 CKD-EPI) (test co de = 96640) 43 ML/MIN/1.73 CALC BUN/CREAT (test code = [...] = 2219) 32 U/L Delfino Schumacher AustinLIPID [id number] 00:00:00* Test Item Value Reference Range Interpretation Comme nts CHOLESTEROL (test code = 2210) 187 MG/DL TRIGLYCERIDES (test code = 2232) 58 MG/DL HDL CHOLESTEROL (test code = 2220) 110 MG/DL CALC LDL CHOL (test code = 2237) 64 MG/DL RISK RATIO LDL/HDL (test cod e = 2238) 0.58 RATIO Delfino OrtaCOMPREHENSIVE METABOLIC [id number] 00:00:00* Test Item Value Reference Range Interpretation Comme nts GLUCOSE (test code = 2217) 87 MG/DL BUN (test code = 2208) 32 MG/DL CREATININE (test code = 2214) 1.39 MG/DL eGFR (2020 CKD-EPI) (test co de = 05911) 43 ML/MIN/1.73 CALC BUN/CREAT (test code = [...] (test code = 2219) 32 U/L Delfino OrtaCOMPREHENSIVE METABOLIC [id number] 00:00:00* Test Item Value Reference Range Interpretation Comme nts GLUCOSE (test code = 2217) 74 MG/DL BUN (test code = 2208) 16 MG/DL CREATININE (test code = 2214) 0.96 MG/DL eGFR (2020 CKD-EPI) (test co de = 12314) 69 ML/MIN/1.73 CALC BUN/CREAT (test code = [...] code = 2219) 13 U/L Delfino OrtaLIPID [id number] 00:00:00* Test Item Value Reference Range Interpretation Comme nts CHOLESTEROL (test code = 2210) 183 MG/DL TRIGLYCERIDES (test code = 2232) 69 MG/DL HDL CHOLESTEROL (test code = 2220) 93 MG/DL CALC LDL CHOL (test code = 2237) 75 MG/DL RISK RATIO LDL/HDL (test cod e = 2238) 0.81 RATIO Delfino OrtaCOMPREHENSIVE METABOLIC [id number] 00:00:00* Test Item Value Reference Range Interpretation Comme nts GLUCOSE (test code = 2217) 74 MG/DL BUN (test code = 2208) 16 MG/DL CREATININE (test code = 2214) 0.96 MG/DL eGFR (2020 CKD-EPI) (test co de = 27918) 69 ML/MIN/1.73 CALC BUN/CREAT (test code = [...] = 2219) 13 U/L Delfino Schumacher AustinLIPID [id number] 00:00:00* Test Item Value Reference Range Interpretation Comme nts CHOLESTEROL (test code = 2210) 183 MG/DL TRIGLYCERIDES (test code = 2232) 69 MG/DL HDL CHOLESTEROL (test code = 2220) 93 MG/DL CALC LDL CHOL (test code = 2237) 75 MG/DL RISK RATIO LDL/HDL (test cod e = 2238) 0.81 RATIO Delfino OrtaCOMPREHENSIVE METABOLIC [id number] 00:00:00* Test Item Value Reference Range Interpretation Comme nts GLUCOSE (test code = 2217) 74 MG/DL BUN (test code = 2208) 16 MG/DL CREATININE (test code = 2214) 0.96 MG/DL eGFR (2020 CKD-EPI) (test co de = 47598) 69 ML/MIN/1.73 CALC BUN/CREAT (test code = [...] code = 2219) 13 U/L Delfino OrtaLIPID [id number] 00:00:00* Test Item Value Reference Range Interpretation Comme nts CHOLESTEROL (test code = 2210) 183 MG/DL TRIGLYCERIDES (test code = 2232) 69 MG/DL HDL CHOLESTEROL (test code = 2220) 93 MG/DL CALC LDL CHOL (test code = 2237) 75 MG/DL RISK RATIO LDL/HDL (test cod e = 2238) 0.81 RATIO Delfino Schumacher AustinCOMPREHENSIVE METABOLIC [id number] 00:00:00* Test Item Value Reference Range Interpretation Comme nts GLUCOSE (test code = 2217) 74 MG/DL BUN (test code = 2208) 16 MG/DL CREATININE (test code = 2214) 0.96 MG/DL eGFR (2020 CKD-EPI) (test co de = 68940) 69 ML/MIN/1.73 CALC BUN/CREAT (test code = [...] = 2219) 13 U/L Delfino Schumacher AustinLIPID [id number] 00:00:00* Test Item Value Reference Range Interpretation Comme nts CHOLESTEROL (test code = 2210) 183 MG/DL TRIGLYCERIDES (test code = 2232) 69 MG/DL HDL CHOLESTEROL (test code = 2220) 93 MG/DL CALC LDL CHOL (test code = 2237) 75 MG/DL RISK RATIO LDL/HDL (test cod e = 2238) 0.81 RATIO Delfino Schumacher AustinCOMPREHENSIVE METABOLIC [id number] 00:00:00* Test Item Value Reference Range Interpretation Comme nts GLUCOSE (test code = 2217) 74 MG/DL BUN (test code = 2208) 16 MG/DL CREATININE (test code = 2214) 0.96 MG/DL eGFR (2020 CKD-EPI) (test co de = 14210) 69 ML/MIN/1.73 CALC BUN/CREAT (test code = [...] = 2219) 13 U/L Delfino Schumacher AustinLIPID [id number] 00:00:00* Test Item Value Reference Range Interpretation Comme nts CHOLESTEROL (test code = 2210) 183 MG/DL TRIGLYCERIDES (test code = 2232) 69 MG/DL HDL CHOLESTEROL (test code = 2220) 93 MG/DL CALC LDL CHOL (test code = 2237) 75 MG/DL RISK RATIO LDL/HDL (test cod e = 2238) 0.81 RATIO Delfino Schumacher AustinCOMPREHENSIVE METABOLIC [id number] 00:00:00* Test Item Value Reference Range Interpretation Comme nts GLUCOSE (test code = 2217) 74 MG/DL BUN (test code = 2208) 16 MG/DL CREATININE (test code = 2214) 0.96 MG/DL eGFR (2020 CKD-EPI) (test co de = 35427) 69 ML/MIN/1.73 CALC BUN/CREAT (test code = [...] code = 2219) 13 U/L Delfino Schumacher NewportLIPID [id number] 00:00:00* Test Item Value Reference Range Interpretation Comme nts CHOLESTEROL (test code = 2210) 183 MG/DL TRIGLYCERIDES (test code = 2232) 69 MG/DL HDL CHOLESTEROL (test code = 2220) 93 MG/DL CALC LDL CHOL (test code = 2237) 75 MG/DL RISK RATIO LDL/HDL (test cod e = 2238) 0.81 RATIO Delfino OtraCOMPREHENSIVE METABOLIC [id number] 00:00:00* Test Item Value Reference Range Interpretation Comme nts GLUCOSE (test code = 2217) 74 MG/DL BUN (test code = 2208) 16 MG/DL CREATININE (test code = 2214) 0.96 MG/DL eGFR (2020 CKD-EPI) (test co de = 31683) 69 ML/MIN/1.73 CALC BUN/CREAT (test code = [...] code = 2219) 13 U/L Delfino OrtaLIPID [id number] 00:00:00* Test Item Value Reference Range Interpretation Comme nts CHOLESTEROL (test code = 2210) 183 MG/DL TRIGLYCERIDES (test code = 2232) 69 MG/DL HDL CHOLESTEROL (test code = 2220) 93 MG/DL CALC LDL CHOL (test code = 2237) 75 MG/DL RISK RATIO LDL/HDL (test cod e = 2238) 0.81 RATIO Delfino OrtaCOMPREHENSIVE METABOLIC [id number] 00:00:00* Test Item Value Reference Range Interpretation Comme nts GLUCOSE (test code = 2217) 74 MG/DL BUN (test code = 2208) 16 MG/DL CREATININE (test code = 2214) 0.96 MG/DL eGFR (2020 CKD-EPI) (test co de = 81443) 69 ML/MIN/1.73 CALC BUN/CREAT (test code = [...] code = 2219) 13 U/L Delfino OrtaLIPID [id number] 00:00:00* Test Item Value Reference Range Interpretation Comme nts CHOLESTEROL (test code = 2210) 183 MG/DL TRIGLYCERIDES (test code = 2232) 69 MG/DL HDL CHOLESTEROL (test code = 2220) 93 MG/DL CALC LDL CHOL (test code = 2237) 75 MG/DL RISK RATIO LDL/HDL (test cod e = 2238) 0.81 RATIO Delfino Schumacher AustinCOMPREHENSIVE METABOLIC [id number] 00:00:00* Test Item Value Reference Range Interpretation Comme nts GLUCOSE (test code = 2217) 74 MG/DL BUN (test code = 2208) 16 MG/DL CREATININE (test code = 2214) 0.96 MG/DL eGFR (2020 CKD-EPI) (test co de = 49978) 69 ML/MIN/1.73 CALC BUN/CREAT (test code = [...] = 2219) 13 U/L Delfino Schumacher AustinLIPID [id number] 00:00:00* Test Item Value Reference Range Interpretation Comme nts CHOLESTEROL (test code = 2210) 183 MG/DL TRIGLYCERIDES (test code = 2232) 69 MG/DL HDL CHOLESTEROL (test code = 2220) 93 MG/DL CALC LDL CHOL (test code = 2237) 75 MG/DL RISK RATIO LDL/HDL (test cod e = 2238) 0.81 RATIO Delfino Schumacher AustinCOMPREHENSIVE METABOLIC [id number] 00:00:00* Test Item Value Reference Range Interpretation Comme nts GLUCOSE (test code = 2217) 74 MG/DL BUN (test code = 2208) 16 MG/DL CREATININE (test code = 2214) 0.96 MG/DL eGFR (2020 CKD-EPI) (test co de = 76090) 69 ML/MIN/1.73 CALC BUN/CREAT (test code = [...] = 2219) 13 U/L Delfino OrtaCOMPREHENSIVE METABOLIC [id number] 00:00:00* Test Item Value Reference Range Interpretation Comme nts GLUCOSE (test code = 2217) 74 MG/DL BUN (test code = 2208) 16 MG/DL CREATININE (test code = 2214) 0.96 MG/DL eGFR (2020 CKD-EPI) (test co de = 95261) 69 ML/MIN/1.73 CALC BUN/CREAT (test code = [...] (test code = 2219) 13 U/L LIPID [id number] 00:00:00* Test Item Value Reference Range Interpretation Comme nts CHOLESTEROL (test code = 2210) 183 MG/DL TRIGLYCERIDES (test code = 2232) 69 MG/DL HDL CHOLESTEROL (test code = 2220) 93 MG/DL CALC LDL CHOL (test code = 2237) 75 MG/DL RISK RATIO LDL/HDL (test cod e = 2238) 0.81 RATIO LIPID [id number] 00:00:00* Test Item Value Reference Range Interpretation Comme nts CHOLESTEROL (test code = 2210) 183 MG/DL TRIGLYCERIDES (test code = 2232) 69 MG/DL HDL CHOLESTEROL (test code = 2220) 93 MG/DL CALC LDL CHOL (test code = 2237) 75 MG/DL RISK RATIO LDL/HDL (test cod e = 2238) 0.81 RATIO Delfino F AustinCOMPREHENSIVE METABOLIC [id number] 00:00:00* Test Item Value Reference Range Interpretation Comme nts GLUCOSE (test code = 2217) 74 MG/DL BUN (test code = 2208) 16 MG/DL CREATININE (test code = 2214) 0.96 MG/DL eGFR (2020 CKD-EPI) (test co de = 43673) 69 ML/MIN/1.73 CALC BUN/CREAT (test code = [...] (test code = 2219) 13 U/L Delfino F AustinCOMPREHENSIVE METABOLIC [id number] 00:00:00* Test Item Value Reference Range Interpretation Comme nts GLUCOSE (test code = 2217) 74 MG/DL BUN (test code = 2208) 16 MG/DL CREATININE (test code = 2214) 0.96 MG/DL eGFR (2020 CKD-EPI) (test co de = 63294) 69 ML/MIN/1.73 CALC BUN/CREAT (test code = [...] (test code = 2219) 13 U/L Delfino Endy NewportLIPID [id number] 00:00:00* Test Item Value Reference Range Interpretation Comme nts CHOLESTEROL (test code = 2210) 183 MG/DL TRIGLYCERIDES (test code = 2232) 69 MG/DL HDL CHOLESTEROL (test code = 2220) 93 MG/DL CALC LDL CHOL (test code = 2237) 75 MG/DL RISK RATIO LDL/HDL (test cod e = 2238) 0.81 RATIO Delfino F YouCOMPREHENSIVE METABOLIC [id number] 00:00:00* Test Item Value Reference Range Interpretation Comme nts GLUCOSE (test code = 2217) 74 MG/DL BUN (test code = 2208) 16 MG/DL CREATININE (test code = 2214) 0.96 MG/DL eGFR (2020 CKD-EPI) (test co de = 95247) 69 ML/MIN/1.73 CALC BUN/CREAT (test code = [...] = 2219) 13 U/L Delfino Schumacher AustinLIPID [id number] 00:00:00* Test Item Value Reference Range Interpretation Comme nts CHOLESTEROL (test code = 2210) 183 MG/DL TRIGLYCERIDES (test code = 2232) 69 MG/DL HDL CHOLESTEROL (test code = 2220) 93 MG/DL CALC LDL CHOL (test code = 2237) 75 MG/DL RISK RATIO LDL/HDL (test cod e = 2238) 0.81 RATIO Delfino OrtaLIPID [id number] 00:00:00* Test Item Value Reference Range Interpretation Comme nts CHOLESTEROL (test code = 2210) 183 MG/DL TRIGLYCERIDES (test code = 2232) 69 MG/DL HDL CHOLESTEROL (test code = 2220) 93 MG/DL CALC LDL CHOL (test code = 2237) 75 MG/DL RISK RATIO LDL/HDL (test cod e = 2238) 0.81 RATIO Delfino OrtaCOMPREHENSIVE METABOLIC [id number] 00:00:00* Test Item Value Reference Range Interpretation Comme nts GLUCOSE (test code = 2217) 74 MG/DL BUN (test code = 2208) 16 MG/DL CREATININE (test code = 2214) 0.96 MG/DL eGFR (2020 CKD-EPI) (test co de = 93305) 69 ML/MIN/1.73 CALC BUN/CREAT (test code = [...] = 2219) 13 U/L Delfino Schumacher AustinLIPID [id number] 00:00:00* Test Item Value Reference Range Interpretation Comme nts CHOLESTEROL (test code = 2210) 183 MG/DL TRIGLYCERIDES (test code = 2232) 69 MG/DL HDL CHOLESTEROL (test code = 2220) 93 MG/DL CALC LDL CHOL (test code = 2237) 75 MG/DL RISK RATIO LDL/HDL (test cod e = 2238) 0.81 RATIO Delfino OrtaCOMPREHENSIVE METABOLIC [id number] 00:00:00* Test Item Value Reference Range Interpretation Comme nts GLUCOSE (test code = 2217) 74 MG/DL BUN (test code = 2208) 16 MG/DL CREATININE (test code = 2214) 0.96 MG/DL eGFR (2020 CKD-EPI) (test co de = 78580) 69 ML/MIN/1.73 CALC BUN/CREAT (test code = [...] = 2219) 13 U/L Delfino Schumacher AustinLIPID [id number] 00:00:00* Test Item Value Reference Range Interpretation Comme nts CHOLESTEROL (test code = 2210) 183 MG/DL TRIGLYCERIDES (test code = 2232) 69 MG/DL HDL CHOLESTEROL (test code = 2220) 93 MG/DL CALC LDL CHOL (test code = 2237) 75 MG/DL RISK RATIO LDL/HDL (test cod e = 2238) 0.81 RATIO ANGEL [id number] 09:14:59SPECIMEN NUMBER: [id number] CULTURE, URINE SPECIMEN NUMBER: [id number] SPECIMEN COMMENT: URINE SOURCE: URINE REPORT STATUS: FINAL FINAL REPORT: 07/05/2021 >100,000 CFU/ML MIXED MICROBIAL POPULATION PRESENT, NO PREDOMINATING ORGANISMS;PROBABLE CONTAMINANTS.CULTURE, [id number] 00:00:00* Test Item Value Reference Range Interpretation Comme nts CULTURE, URINE (test code = 26203) SPECIMEN NUMBER: [id number] Delfino Cedeño [id number] 00:00:00* Test Item Value Reference Range Interpretation Comme nts CULTURE, URINE (test code = 71641) SPECIMEN NUMBER: [id number] Delfino Cedeño [id number] 00:00:00* Test Item Value Reference Range Interpretation Comme nts CULTURE, URINE (test code = 99685) SPECIMEN NUMBER: [id number] ANGEL [id number] 00:00:00* Test Item Value Reference Range Interpretation Comme nts CULTURE, URINE (test code = 84497) SPECIMEN NUMBER: [id number] Delfino Cedeño, [id number] 00:00:00* Test Item Value Reference Range Interpretation Comme nts CULTURE, URINE (test code = 56553) SPECIMEN NUMBER: [id number] Delfino Cedeño, [id number] 00:00:00* Test Item Value Reference Range Interpretation Comme nts CULTURE, URINE (test code = 02763) SPECIMEN NUMBER: [id number] Delfino Cedeño, [id number] 00:00:00* Test Item Value Reference Range Interpretation Comme nts CULTURE, URINE (test code = 19748) SPECIMEN NUMBER: [id number] Delfino Cedeño, [id number] 00:00:00* Test Item Value Reference Range Interpretation Comme nts CULTURE, URINE (test code = 65381) SPECIMEN NUMBER: [id number] Delfino SarmientoLTNIALL, [id number] 00:00:00* Test Item Value Reference Range Interpretation Comme nts CULTURE, URINE (test code = 78269) SPECIMEN NUMBER: [id number] Delfino Cedeño, [id number] 00:00:00* Test Item Value Reference Range Interpretation Comme nts CULTURE, URINE (test code = 15325) SPECIMEN NUMBER: [id number] Delfino OrtaCULTNIALL, [id number] 00:00:00* Test Item Value Reference Range Interpretation Comme nts CULTURE, URINE (test code = 91304) SPECIMEN NUMBER: [id number] CULTURE, [id number] 00:00:00* Test Item Value Reference Range Interpretation Comme nts CULTURE, URINE (test code = 41600) SPECIMEN NUMBER: [id number] CULTURE, [id number] 00:00:00* Test Item Value Reference Range Interpretation Comme nts CULTURE, URINE (test code = 55713) SPECIMEN NUMBER: [id number] CULTURE, [id number] 00:00:00* Test Item Value Reference Range Interpretation Comme nts CULTURE, URINE (test code = 19730) SPECIMEN NUMBER: [id number] CULTURE, [id number] 00:00:00* Test Item Value Reference Range Interpretation Comme nts CULTURE, URINE (test code = 05447) SPECIMEN NUMBER: [id number] Delfino OrtaCULTURE, [id number] 00:00:00* Test Item Value Reference Range Interpretation Comme nts CULTURE, URINE (test code = 09076) SPECIMEN NUMBER: [id number] Delfino OrtaCULTURE, [id number] 00:00:00* Test Item Value Reference Range Interpretation Comme nts CULTURE, URINE (test code = 74165) SPECIMEN NUMBER: [id number] Delfino OrtaCULTNIALL, [id number] 00:00:00* Test Item Value Reference Range Interpretation Comme nts CULTURE, URINE (test code = 97775) SPECIMEN NUMBER: [id number] Delfino OrtaCULTURE, [id number] 00:00:00* Test Item Value Reference Range Interpretation Comme nts CULTURE, URINE (test code = 73223) SPECIMEN NUMBER: [id number] Delfino OrtaVAGINAL PATHOGENS DNA [id number] 15:31:31* Test Item Value Reference Range Interpretation Comme nts DIANNA SPECIES (test code = 30843) NEGATIVE NEGATIVE G. VAGINALIS (test code = 53221) NEGATIVE NEGATIVE T. VAGINALIS (test code = 82933) NEGATIVE NEGATIVE UNLESS OTHERWISE INDICATED, ALL TESTING PERFORMED [facility] [employer] [address] [place] [address] ANIMAL SKINNER: ALYSSIA FRASER M.D. CLIA NUMBER [id number] [facility] [place]. [id number] VAGINAL PATHOGENS DNA [id number] 00:00:00* Test Item Value Reference Range Interpretation Comme nts DIANNA SPECIES (test code = 39302) NEGATIVE G. VAGINALIS (test code = 44202) NEGATIVE T. VAGINALIS (test code = 86273) NEGATIVE Delfino Schumacher AustinVAGINAL PATHOGENS DNA [id number] 00:00:00* Test Item Value Reference Range Interpretation Comme nts DIANNA SPECIES (test code = 45248) NEGATIVE G. VAGINALIS (test code = 59403) NEGATIVE T. VAGINALIS (test code = 13765) NEGATIVE Delfino Schumacher AustinVAGINAL PATHOGENS DNA [id number] 00:00:00* Test Item Value Reference Range Interpretation Comme nts DIANNA SPECIES (test code = 52809) NEGATIVE G. VAGINALIS (test code = 64992) NEGATIVE T. VAGINALIS (test code = 85179) NEGATIVE Delfino [facility] [id number] 00:00:00* Test Item Value Reference Range Interpretation Comme nts DIANNA SPECIES (test code = 66239) NEGATIVE G. VAGINALIS (test code = 93036) NEGATIVE T. VAGINALIS (test code = 71576) NEGATIVE Delfino [facility] [id number] 00:00:00* Test Item Value Reference Range Interpretation Comme nts DIANNA SPECIES (test code = 53406) NEGATIVE G. VAGINALIS (test code = 28232) NEGATIVE T. VAGINALIS (test code = 39796) NEGATIVE Delfino [facility] [id number] 00:00:00* Test Item Value Reference Range Interpretation Comme nts DIANNA SPECIES (test code = 37409) NEGATIVE G. VAGINALIS (test code = 25583) NEGATIVE T. VAGINALIS (test code = 92612) NEGATIVE [facility]elfino F [facility] [id number] 00:00:00* Test Item Value Reference Range Interpretation Comme nts DIANNA SPECIES (test code = 51590) NEGATIVE G. VAGINALIS (test code = 28585) NEGATIVE T. VAGINALIS (test code = 07571) NEGATIVE [facility] [id number] 00:00:00* Test Item Value Reference Range Interpretation Comme nts DIANNA SPECIES (test code = 76679) NEGATIVE G. VAGINALIS (test code = 24480) NEGATIVE T. VAGINALIS (test code = 31582) NEGATIVE [facility] [id number] 00:00:00* Test Item Value Reference Range Interpretation Comme nts DIANNA SPECIES (test code = 09631) NEGATIVE G. VAGINALIS (test code = 56603) NEGATIVE T. VAGINALIS (test code = 91843) NEGATIVE [facility] [id number] 00:00:00* Test Item Value Reference Range Interpretation Comme nts DIANNA SPECIES (test code = 10936) NEGATIVE G. VAGINALIS (test code = 58201) NEGATIVE T. VAGINALIS (test code = 32587) NEGATIVE VAGINAL PATHOGENS DNA [id number] 00:00:00* Test Item Value Reference Range Interpretation Comme nts DIANNA SPECIES (test code = 92635) NEGATIVE G. VAGINALIS (test code = 43204) NEGATIVE T. VAGINALIS (test code = 02261) NEGATIVE VAGINAL PATHOGENS DNA [id number] 00:00:00* Test Item Value Reference Range Interpretation Comme nts DIANNA SPECIES (test code = 64989) NEGATIVE G. VAGINALIS (test code = 27514) NEGATIVE T. VAGINALIS (test code = 69570) NEGATIVE VAGINAL PATHOGENS DNA [id number] 00:00:00* Test Item Value Reference Range Interpretation Comme nts DIANNA SPECIES (test code = 37492) NEGATIVE G. VAGINALIS (test code = 71193) NEGATIVE T. VAGINALIS (test code = 21650) NEGATIVE VAGINAL PATHOGENS DNA [id number] 00:00:00* Test Item Value Reference Range Interpretation Comme nts DIANNA SPECIES (test code = ) NEGATIVE G. VAGINALIS (test code = 85825) NEGATIVE T. VAGINALIS (test code = 21286) NEGATIVE Delfino Endy Austin[facility] DNA [id number] 00:00:00* Test Item Value Reference Range Interpretation Comme nts DIANNA SPECIES (test code = 62870) NEGATIVE G. VAGINALIS (test code = 95263) NEGATIVE T. VAGINALIS (test code = 77136) NEGATIVE Delfino F AustinVAGINAL PATHOGENS DNA [id number] 00:00:00* Test Item Value Reference Range Interpretation Comme nts DIANNA SPECIES (test code = 56060) NEGATIVE G. VAGINALIS (test code = 91698) NEGATIVE T. VAGINALIS (test code = 95707) NEGATIVE Delfino Schumacher [facility] [id number] 00:00:00* Test Item Value Reference Range Interpretation Comme nts DIANNA SPECIES (test code = 66966) NEGATIVE G. VAGINALIS (test code = 93386) NEGATIVE T. VAGINALIS (test code = 92030) NEGATIVE Delfino F AustinVAGINAL PATHOGENS DNA [id number] 00:00:00* Test Item Value Reference Range Interpretation Comme nts DIANNA SPECIES (test code = ) NEGATIVE G. VAGINALIS (test code = 67819) NEGATIVE T. VAGINALIS (test code = 88301) NEGATIVE Delfino F AustinV[facility] PATH[facility]ENS DNA [id number] 00:00:00* Test Item Value Reference Range Interpretation Comme nts DIANNA SPECIES (test code = ) NEGATIVE G. VAGINALIS (test code = 29464) NEGATIVE T. VAGINALIS (test code = 75223) NEGATIVE Delfino SarmientoLTNIALL, [id number] 12:43:02SPECIMEN NUMBER: [id number] CULTURE, URINE SPECIMEN NUMBER: [id number] SPECIMEN COMMENT: URINE SOURCE: URINE REPORT STATUS: FINAL ISOLATE NUMBER 1: ORGANISM: 04/28/2021 10-50,000 CFU/ML ENTEROCOCCUS SPECIES (GROUP D) IDENTIFICATION: 04/29/2021 ENTEROCOCCUS SPECIES (GROUP D) ENTEROCOCCUS SP. AMPICILLIN SENSITIVE <=2CIPROFLOXACIN SENSITIVE <=1LEVOFLOXACIN SENSITIVE 1NITROFURANTOIN SENSITIVE <=32TETRACYCLINE RESISTANT >8VANCOMYCIN SENSITIVE 2 NOTE: NUMBERS DISPLAYED REPRESENT MINIMUM INHIBITORY CONCENTRATION (CHAYO) WHICH IS EXPRESSED IN MCG/ML.CULTURE, URINE 2021-04-30 00:00:00* Test Item Value Reference Range Interpretation Comme nts CULTURE, URINE (test code = 79997) SPECIMEN NUMBER: [id number] Delfino Cedeño [id number] 00:00:00* Test Item Value Reference Range Interpretation Comme nts CULTURE, URINE (test code = 77312) SPECIMEN NUMBER: [id number] Delfino Cedeño, [id number] 00:00:00* Test Item Value Reference Range Interpretation Comme nts CULTURE, URINE (test code = 08620) SPECIMEN NUMBER: [id number] Delfino Cedeño [id number] 00:00:00* Test Item Value Reference Range Interpretation Comme nts CULTURE, URINE (test code = 09949) SPECIMEN NUMBER: [id number] Delfino Cedeño, [id number] 00:00:00* Test Item Value Reference Range Interpretation Comme nts CULTURE, URINE (test code = 56200) SPECIMEN NUMBER: [id number] Delfino Cedeño [id number] 00:00:00* Test Item Value Reference Range Interpretation Comme nts CULTURE, URINE (test code = 35741) SPECIMEN NUMBER: [id number] Delfino Cedeño [id number] 00:00:00* Test Item Value Reference Range Interpretation Comme nts CULTURE, URINE (test code = 08675) SPECIMEN NUMBER: [id number] Delfino Cedeño, [id number] 00:00:00* Test Item Value Reference Range Interpretation Comme nts CULTURE, URINE (test code = 31272) SPECIMEN NUMBER: [id number] Delfino Cedeño [id number] 00:00:00* Test Item Value Reference Range Interpretation Comme nts CULTURE, URINE (test code = 21946) SPECIMEN NUMBER: [id number] Delfino Cedeño [id number] 00:00:00* Test Item Value Reference Range Interpretation Comme nts CULTURE, URINE (test code = 96383) SPECIMEN NUMBER: [id number] Delfino OrtaCULTURE, [id number] 00:00:00* Test Item Value Reference Range Interpretation Comme nts CULTURE, URINE (test code = 39579) SPECIMEN NUMBER: [id number] CULTURE, [id number] 00:00:00* Test Item Value Reference Range Interpretation Comme nts CULTURE, URINE (test code = 49584) SPECIMEN NUMBER: [id number] CULTURE, [id number] 00:00:00* Test Item Value Reference Range Interpretation Comme nts CULTURE, URINE (test code = 48899) SPECIMEN NUMBER: [id number] CULTURE, [id number] 00:00:00* Test Item Value Reference Range Interpretation Comme nts CULTURE, URINE (test code = 06996) SPECIMEN NUMBER: [id number] CULTURE, [id number] 00:00:00* Test Item Value Reference Range Interpretation Comme nts CULTURE, URINE (test code = 56613) SPECIMEN NUMBER: [id number] Delfino OrtaCULTURE, [id number] 00:00:00* Test Item Value Reference Range Interpretation Comme nts CULTURE, URINE (test code = 42058) SPECIMEN NUMBER: [id number] Delfino OrtaCULTURE, [id number] 00:00:00* Test Item Value Reference Range Interpretation Comme nts CULTURE, URINE (test code = 07962) SPECIMEN NUMBER: [id number] Delfino OrtaCULTURE, [id number] 00:00:00* Test Item Value Reference Range Interpretation Comme nts CULTURE, URINE (test code = 66466) SPECIMEN NUMBER: [id number] Delfino OrtaCULTURE, [id number] 00:00:00* Test Item Value Reference Range Interpretation Comme nts CULTURE, URINE (test code = 82176) SPECIMEN NUMBER: [id number] Delfino OrtaURINALYSIS WITH [id number] 07:51:12* Test Item Value Reference Range Interpretation [...] code = 1510) 0.2 MG/DL See_Comment [Automated [employer] ge] The system which generated this result [...] 0-5 A EPITHELIAL CELLS (test code = 32349) 0-5 /HPF 0-10 BACTERIA (test code = 1515) 3+ NONE SEEN A CASTS, HYALINE (test code = 1517) TRACE NONE-TRACE UNLESS OTHERWISE INDICATED, ALL TESTING PERFORMED [facility] [address] [place] [address] ANIMAL SKINNER: ALYSSIA FRASER M.D. CLIA NUMBER [id number] [facility] [place]. [id number] URINALYSIS WITH [id number] 00:00:00* Test Item Value Reference Range Interpretation [...] >50 /HPF EPITHELIAL CELLS (test code = 88784) 0-5 /HPF BACTERIA (test code = 1515) 3+ CASTS, HYALINE (test code = 1517) TRACE Delfino F AustinURINALYSIS WITH [id number] 00:00:00* Test Item Value Reference Range Interpretation [...] >50 /HPF EPITHELIAL CELLS (test code = 22500) 0-5 /HPF BACTERIA (test code = 1515) 3+ CASTS, HYALINE (test code = 1517) TONY Schumacher AustinURINALYSIS WITH [id number] 00:00:00* Test Item Value Reference Range Interpretation [...] >50 /HPF EPITHELIAL CELLS (test code = 77259) 0-5 /HPF BACTERIA (test code = 1515) 3+ CASTS, HYALINE (test code = 1517) TONY Schumacher AustinURINALYSIS WITH [id number] 00:00:00* Test Item Value Reference Range Interpretation [...] >50 /HPF EPITHELIAL CELLS (test code = 41807) 0-5 /HPF BACTERIA (test code = 1515) 3+ CASTS, HYALINE (test code = 1517) TONY Schumacher AustinURINALYSIS WITH [id number] 00:00:00* Test Item Value Reference Range Interpretation [...] >50 /HPF EPITHELIAL CELLS (test code = 81916) 0-5 /HPF BACTERIA (test code = 1515) 3+ CASTS, HYALINE (test code = 1517) TONY Schumacher AustinURINALYSIS WITH [id number] 00:00:00* Test Item Value Reference Range Interpretation [...] >50 /HPF EPITHELIAL CELLS (test code = 42713) 0-5 /HPF BACTERIA (test code = 1515) 3+ CASTS, HYALINE (test code = 1517) TONY Schumacher AustinURINALYSIS WITH [id number] 00:00:00* Test Item Value Reference Range Interpretation [...] >50 /HPF EPITHELIAL CELLS (test code = 65913) 0-5 /HPF BACTERIA (test code = 1515) 3+ CASTS, HYALINE (test code = 1517) TONY Schumacher AustinURINALYSIS WITH [id number] 00:00:00* Test Item Value Reference Range Interpretation [...] >50 /HPF EPITHELIAL CELLS (test code = 89867) 0-5 /HPF BACTERIA (test code = 1515) 3+ CASTS, HYALINE (test code = 1517) TONY Schumacher AustinURINALYSIS WITH [id number] 00:00:00* Test Item Value Reference Range Interpretation [...] >50 /HPF EPITHELIAL CELLS (test code = 61067) 0-5 /HPF BACTERIA (test code = 1515) 3+ CASTS, HYALINE (test code = 1517) TONY OrtaURINALYSIS WITH [id number] 00:00:00* Test Item Value Reference Range Interpretation [...] >50 /HPF EPITHELIAL CELLS (test code = 74746) 0-5 /HPF BACTERIA (test code = 1515) 3+ CASTS, HYALINE (test code = 1517) TRACE URINALYSIS WITH [id number] 00:00:00* Test Item Value Reference Range Interpretation [...] >50 /HPF EPITHELIAL CELLS (test code = 21094) 0-5 /HPF BACTERIA (test code = 1515) 3+ CASTS, HYALINE (test code = 1517) TRACE URINALYSIS WITH [id number] 00:00:00* Test Item Value Reference Range Interpretation [...] >50 /HPF EPITHELIAL CELLS (test code = 69156) 0-5 /HPF BACTERIA (test code = 1515) 3+ CASTS, HYALINE (test code = 1517) TRACE URINALYSIS WITH [id number] 00:00:00* Test Item Value Reference Range Interpretation [...] >50 /HPF EPITHELIAL CELLS (test code = 14790) 0-5 /HPF BACTERIA (test code = 1515) 3+ CASTS, HYALINE (test code = 1517) TRACE URINALYSIS WITH [id number] 00:00:00* Test Item Value Reference Range Interpretation [...] >50 /HPF EPITHELIAL CELLS (test code = 38117) 0-5 /HPF BACTERIA (test code = 1515) 3+ CASTS, HYALINE (test code = 1517) TRACE Delfino F AustinURINALYSIS WITH [id number] 00:00:00* Test Item Value Reference Range Interpretation [...] >50 /HPF EPITHELIAL CELLS (test code = 25788) 0-5 /HPF BACTERIA (test code = 1515) 3+ CASTS, HYALINE (test code = 1517) TONY Schumacher AustinURINALYSIS WITH [id number] 00:00:00* Test Item Value Reference Range Interpretation [...] >50 /HPF EPITHELIAL CELLS (test code = 01084) 0-5 /HPF BACTERIA (test code = 1515) 3+ CASTS, HYALINE (test code = 1517) TONY Schumacher AustinURINALYSIS WITH [id number] 00:00:00* Test Item Value Reference Range Interpretation [...] >50 /HPF EPITHELIAL CELLS (test code = 04333) 0-5 /HPF BACTERIA (test code = 1515) 3+ CASTS, HYALINE (test code = 1517) TONY OrtaURINALYSIS WITH [id number] 00:00:00* Test Item Value Reference Range Interpretation [...] >50 /HPF EPITHELIAL CELLS (test code = 49695) 0-5 /HPF BACTERIA (test code = 1515) 3+ CASTS, HYALINE (test code = 1517) TONY Schumacher AustinURINALYSIS WITH [id number] 00:00:00* Test Item Value Reference Range Interpretation [...] >50 /HPF EPITHELIAL CELLS (test code = 21400) 0-5 /HPF BACTERIA (test code = 1515) 3+ CASTS, HYALINE (test code = 1517) TRACE [facility] [id number] 00:00:00* Test Item Value Reference Range Interpretation [...] ABS NUCLEATED RBCS (test cod e = 57073) 0.00 K/UL COMMENTS (test code = 1016) (NOTE) Delfino OrtaCOMPREHENSIVE METABOLIC [id number] 00:00:00* Test Item Value Reference Range Interpretation Comme nts GLUCOSE (test code = 2217) 80 MG/DL BUN (test code = 2208) 18 MG/DL CREATININE (test code = 2214) 1.06 MG/DL eGFR AMER. (test cod e = 93998) 67 ML/MIN/1.73 eGFR NON- AMER. (test code = 25854) 58 ML/MIN/1.73 CALC BUN/CREAT (test code = [...] code = 2219) 54 U/L Delfino Schumacher NewportLIPID [id number] 00:00:00* Test Item Value Reference Range Interpretation Comme nts CHOLESTEROL (test code = 2210) 174 MG/DL TRIGLYCERIDES (test code = 2232) 63 MG/DL HDL CHOLESTEROL (test code = 2220) 87 MG/DL CALC LDL CHOL (test code = 2237) 73 MG/DL RISK RATIO LDL/HDL (test cod e = 2238) 0.84 RATIO Delfino OrtaCOMPREHENSIVE METABOLIC [id number] 00:00:00* Test Item Value Reference Range Interpretation Comme nts GLUCOSE (test code = 2217) 80 MG/DL BUN (test code = 2208) 18 MG/DL CREATININE (test code = 2214) 1.06 MG/DL eGFR AMER. (test cod e = 34722) 67 ML/MIN/1.73 eGFR NON- AMER. (test code = 74725) 58 ML/MIN/1.73 CALC BUN/CREAT (test code = [...] = 2219) 54 U/L Delfino OrtaCBC W/AUTO [id number] 00:00:00* Test Item Value Reference Range Interpretation [...] ABS NUCLEATED RBCS (test cod e = 29517) 0.00 K/UL COMMENTS (test code = 1016) (NOTE) Delfino OrtaLIPID [id number] 00:00:00* Test Item Value Reference Range Interpretation Comme nts CHOLESTEROL (test code = 2210) 174 MG/DL TRIGLYCERIDES (test code = 2232) 63 MG/DL HDL CHOLESTEROL (test code = 2220) 87 MG/DL CALC LDL CHOL (test code = 2237) 73 MG/DL RISK RATIO LDL/HDL (test cod e = 2238) 0.84 RATIO Delfino OrtaCOMPREHENSIVE METABOLIC [id number] 00:00:00* Test Item Value Reference Range Interpretation Comme nts GLUCOSE (test code = 2217) 80 MG/DL BUN (test code = 2208) 18 MG/DL CREATININE (test code = 2214) 1.06 MG/DL eGFR AMER. (test cod e = 52795) 67 ML/MIN/1.73 eGFR NON- AMER. (test code = 89703) 58 ML/MIN/1.73 CALC BUN/CREAT (test code = [...] 2219) 54 U/L Delfino Schumacher YouCBC W/AUTO [id number] 00:00:00* Test Item Value Reference Range Interpretation [...] ABS NUCLEATED RBCS (test cod e = 45677) 0.00 K/UL COMMENTS (test code = 1016) (NOTE) Delfino Schumacher AustinLIPID [id number] 00:00:00* Test Item Value Reference Range Interpretation Comme nts CHOLESTEROL (test code = 2210) 174 MG/DL TRIGLYCERIDES (test code = 2232) 63 MG/DL HDL CHOLESTEROL (test code = 2220) 87 MG/DL CALC LDL CHOL (test code = 2237) 73 MG/DL RISK RATIO LDL/HDL (test cod e = 2238) 0.84 RATIO Delfino OrtaCOMPREHENSIVE METABOLIC [id number] 00:00:00* Test Item Value Reference Range Interpretation Comme nts GLUCOSE (test code = 2217) 80 MG/DL BUN (test code = 2208) 18 MG/DL CREATININE (test code = 2214) 1.06 MG/DL eGFR AMER. (test cod e = 46124) 67 ML/MIN/1.73 eGFR NON- AMER. (test code = 99842) 58 ML/MIN/1.73 CALC BUN/CREAT (test code = [...] = 2219) 54 U/L Delfino OrtaCBC W/AUTO [id number] 00:00:00* Test Item Value Reference Range Interpretation [...] ABS NUCLEATED RBCS (test cod e = 93073) 0.00 K/UL COMMENTS (test code = 1016) (NOTE) Delfino Schumacher YouLIPID [id number] 00:00:00* Test Item Value Reference Range Interpretation Comme nts CHOLESTEROL (test code = 2210) 174 MG/DL TRIGLYCERIDES (test code = 2232) 63 MG/DL HDL CHOLESTEROL (test code = 2220) 87 MG/DL CALC LDL CHOL (test code = 2237) 73 MG/DL RISK RATIO LDL/HDL (test cod e = 2238) 0.84 RATIO Delfino OrtaCOMPREHENSIVE METABOLIC [id number] 00:00:00* Test Item Value Reference Range Interpretation Comme nts GLUCOSE (test code = 2217) 80 MG/DL BUN (test code = 2208) 18 MG/DL CREATININE (test code = 2214) 1.06 MG/DL eGFR AMER. (test cod e = 66532) 67 ML/MIN/1.73 eGFR NON- AMER. (test code = 15792) 58 ML/MIN/1.73 CALC BUN/CREAT (test code = [...] = 2219) 54 U/L Delfino OrtaCBC W/AUTO [id number] 00:00:00* Test Item Value Reference Range Interpretation [...] ABS NUCLEATED RBCS (test cod e = 04293) 0.00 K/UL COMMENTS (test code = 1016) (NOTE) Delfino Schumacher NewportLIPID [id number] 00:00:00* Test Item Value Reference Range Interpretation Comme nts CHOLESTEROL (test code = 2210) 174 MG/DL TRIGLYCERIDES (test code = 2232) 63 MG/DL HDL CHOLESTEROL (test code = 2220) 87 MG/DL CALC LDL CHOL (test code = 2237) 73 MG/DL RISK RATIO LDL/HDL (test cod e = 2238) 0.84 RATIO Delfino Schumacher YouCOMPREHENSIVE METABOLIC [id number] 00:00:00* Test Item Value Reference Range Interpretation Comme nts GLUCOSE (test code = 2217) 80 MG/DL BUN (test code = 2208) 18 MG/DL CREATININE (test code = 2214) 1.06 MG/DL eGFR AMER. (test cod e = 23243) 67 ML/MIN/1.73 eGFR NON- AMER. (test code = 89863) 58 ML/MIN/1.73 CALC BUN/CREAT (test code = [...] code = 2219) 54 U/L Delfino Schumacher [facility] W/AUTO [id number] 00:00:00* Test Item Value Reference Range Interpretation [...] ABS NUCLEATED RBCS (test cod e = 49306) 0.00 K/UL COMMENTS (test code = 1016) (NOTE) Delfino OrtaLIPID [id number] 00:00:00* Test Item Value Reference Range Interpretation Comme nts CHOLESTEROL (test code = 2210) 174 MG/DL TRIGLYCERIDES (test code = 2232) 63 MG/DL HDL CHOLESTEROL (test code = 2220) 87 MG/DL CALC LDL CHOL (test code = 2237) 73 MG/DL RISK RATIO LDL/HDL (test cod e = 2238) 0.84 RATIO Delfino OrtaCOMPREHENSIVE METABOLIC [id number] 00:00:00* Test Item Value Reference Range Interpretation Comme nts GLUCOSE (test code = 2217) 80 MG/DL BUN (test code = 2208) 18 MG/DL CREATININE (test code = 2214) 1.06 MG/DL eGFR AMER. (test cod e = 30675) 67 ML/MIN/1.73 eGFR NON- AMER. (test code = 62347) 58 ML/MIN/1.73 CALC BUN/CREAT (test code = [...] = 2219) 54 U/L Delfino OrtaCBC W/AUTO [id number] 00:00:00* Test Item Value Reference Range Interpretation [...] ABS NUCLEATED RBCS (test cod e = 08972) 0.00 K/UL COMMENTS (test code = 1016) (NOTE) Delfino Schumacher AustinLIPID [id number] 00:00:00* Test Item Value Reference Range Interpretation Comme nts CHOLESTEROL (test code = 2210) 174 MG/DL TRIGLYCERIDES (test code = 2232) 63 MG/DL HDL CHOLESTEROL (test code = 2220) 87 MG/DL CALC LDL CHOL (test code = 2237) 73 MG/DL RISK RATIO LDL/HDL (test cod e = 2238) 0.84 RATIO Delfino Schumacher YouCOMPREHENSIVE METABOLIC [id number] 00:00:00* Test Item Value Reference Range Interpretation Comme nts GLUCOSE (test code = 2217) 80 MG/DL BUN (test code = 2208) 18 MG/DL CREATININE (test code = 2214) 1.06 MG/DL eGFR AMER. (test cod e = 38682) 67 ML/MIN/1.73 eGFR NON- AMER. (test code = 08599) 58 ML/MIN/1.73 CALC BUN/CREAT (test code = [...] code = 2219) 54 U/L Delfino Schumacher [facility] W/AUTO [id number] 00:00:00* Test Item Value Reference Range Interpretation [...] ABS NUCLEATED RBCS (test cod e = 54676) 0.00 K/UL COMMENTS (test code = 1016) (NOTE) Delfino OrtaLIPID [id number] 00:00:00* Test Item Value Reference Range Interpretation Comme nts CHOLESTEROL (test code = 2210) 174 MG/DL TRIGLYCERIDES (test code = 2232) 63 MG/DL HDL CHOLESTEROL (test code = 2220) 87 MG/DL CALC LDL CHOL (test code = 2237) 73 MG/DL RISK RATIO LDL/HDL (test cod e = 2238) 0.84 RATIO Delfino OrtaCOMPREHENSIVE METABOLIC [id number] 00:00:00* Test Item Value Reference Range Interpretation Comme nts GLUCOSE (test code = 2217) 80 MG/DL BUN (test code = 2208) 18 MG/DL CREATININE (test code = 2214) 1.06 MG/DL eGFR AMER. (test cod e = 07508) 67 ML/MIN/1.73 eGFR NON- AMER. (test code = 20052) 58 ML/MIN/1.73 CALC BUN/CREAT (test code = [...] = 2219) 54 U/L Delfino OrtaCBC W/AUTO [id number] 00:00:00* Test Item Value Reference Range Interpretation [...] ABS NUCLEATED RBCS (test cod e = 90453) 0.00 K/UL COMMENTS (test code = 1016) (NOTE) Delfino Schumacher AustinLIPID [id number] 00:00:00* Test Item Value Reference Range Interpretation Comme nts CHOLESTEROL (test code = 2210) 174 MG/DL TRIGLYCERIDES (test code = 2232) 63 MG/DL HDL CHOLESTEROL (test code = 2220) 87 MG/DL CALC LDL CHOL (test code = 2237) 73 MG/DL RISK RATIO LDL/HDL (test cod e = 2238) 0.84 RATIO Delfino Schumacher AustinCOMPREHENSIVE METABOLIC [id number] 00:00:00* Test Item Value Reference Range Interpretation Comme nts GLUCOSE (test code = 2217) 80 MG/DL BUN (test code = 2208) 18 MG/DL CREATININE (test code = 2214) 1.06 MG/DL eGFR AMER. (test cod e = 09771) 67 ML/MIN/1.73 eGFR NON- AMER. (test code = 85687) 58 ML/MIN/1.73 CALC BUN/CREAT (test code = [...] code = 2219) 54 U/L Delfino Schumacher [facility] W/AUTO [id number] 00:00:00* Test Item Value Reference Range Interpretation [...] ABS NUCLEATED RBCS (test cod e = 42102) 0.00 K/UL COMMENTS (test code = 1016) (NOTE) Delfino OrtaLIPID [id number] 00:00:00* Test Item Value Reference Range Interpretation Comme nts CHOLESTEROL (test code = 2210) 174 MG/DL TRIGLYCERIDES (test code = 2232) 63 MG/DL HDL CHOLESTEROL (test code = 2220) 87 MG/DL CALC LDL CHOL (test code = 2237) 73 MG/DL RISK RATIO LDL/HDL (test cod e = 2238) 0.84 RATIO Delfino OrtaCBC W/AUTO [id number] 00:00:00* Test Item Value Reference Range Interpretation [...] ABS NUCLEATED RBCS (test cod e = 57729) 0.00 K/UL COMMENTS (test code = 1016) (NOTE) LIPID [id number] 00:00:00* Test Item Value Reference Range Interpretation Comme nts CHOLESTEROL (test code = 2210) 174 MG/DL TRIGLYCERIDES (test code = 2232) 63 MG/DL HDL CHOLESTEROL (test code = 2220) 87 MG/DL CALC LDL CHOL (test code = 2237) 73 MG/DL RISK RATIO LDL/HDL (test cod e = 2238) 0.84 RATIO COMPREHENSIVE METABOLIC [id number] 00:00:00* Test Item Value Reference Range Interpretation Comme nts GLUCOSE (test code = 2217) 80 MG/DL BUN (test code = 2208) 18 MG/DL CREATININE (test code = 2214) 1.06 MG/DL eGFR AMER. (test cod e = 33928) 67 ML/MIN/1.73 eGFR NON- AMER. (test code = 12624) 58 ML/MIN/1.73 CALC BUN/CREAT (test code = [...] code = 2219) 54 U/L CBC W/AUTO [id number] 00:00:00* Test Item Value Reference Range Interpretation [...] ABS NUCLEATED RBCS (test cod e = 49911) 0.00 K/UL COMMENTS (test code = 1016) (NOTE) LIPID [id number] 00:00:00* Test Item Value Reference Range Interpretation Comme nts CHOLESTEROL (test code = 2210) 174 MG/DL TRIGLYCERIDES (test code = 2232) 63 MG/DL HDL CHOLESTEROL (test code = 2220) 87 MG/DL CALC LDL CHOL (test code = 2237) 73 MG/DL RISK RATIO LDL/HDL (test cod e = 2238) 0.84 RATIO COMPREHENSIVE METABOLIC [id number] 00:00:00* Test Item Value Reference Range Interpretation Comme nts GLUCOSE (test code = 2217) 80 MG/DL BUN (test code = 2208) 18 MG/DL CREATININE (test code = 2214) 1.06 MG/DL eGFR AMER. (test cod e = 19073) 67 ML/MIN/1.73 eGFR NON- AMER. (test code = 43127) 58 ML/MIN/1.73 CALC BUN/CREAT (test code = [...] code = 2219) 54 U/L CBC W/AUTO [id number] 00:00:00* Test Item Value Reference Range Interpretation [...] ABS NUCLEATED RBCS (test cod e = 22399) 0.00 K/UL COMMENTS (test code = 1016) (NOTE) LIPID [id number] 00:00:00* Test Item Value Reference Range Interpretation Comme nts CHOLESTEROL (test code = 2210) 174 MG/DL TRIGLYCERIDES (test code = 2232) 63 MG/DL HDL CHOLESTEROL (test code = 2220) 87 MG/DL CALC LDL CHOL (test code = 2237) 73 MG/DL RISK RATIO LDL/HDL (test cod e = 2238) 0.84 RATIO COMPREHENSIVE METABOLIC [id number] 00:00:00* Test Item Value Reference Range Interpretation Comme nts GLUCOSE (test code = 2217) 80 MG/DL BUN (test code = 2208) 18 MG/DL CREATININE (test code = 2214) 1.06 MG/DL eGFR AMER. (test cod e = 28730) 67 ML/MIN/1.73 eGFR NON- AMER. (test code = 85113) 58 ML/MIN/1.73 CALC BUN/CREAT (test code = [...] code = 2219) 54 U/L CBC W/AUTO [id number] 00:00:00* Test Item Value Reference Range Interpretation [...] ABS NUCLEATED RBCS (test cod e = 34962) 0.00 K/UL COMMENTS (test code = 1016) (NOTE) LIPID [id number] 00:00:00* Test Item Value Reference Range Interpretation Comme nts CHOLESTEROL (test code = 2210) 174 MG/DL TRIGLYCERIDES (test code = 2232) 63 MG/DL HDL CHOLESTEROL (test code = 2220) 87 MG/DL CALC LDL CHOL (test code = 2237) 73 MG/DL RISK RATIO LDL/HDL (test cod e = 2238) 0.84 RATIO COMPREHENSIVE METABOLIC [id number] 00:00:00* Test Item Value Reference Range Interpretation Comme nts GLUCOSE (test code = 2217) 80 MG/DL BUN (test code = 2208) 18 MG/DL CREATININE (test code = 2214) 1.06 MG/DL eGFR AMER. (test cod e = 01998) 67 ML/MIN/1.73 eGFR NON- AMER. (test code = 73024) 58 ML/MIN/1.73 CALC BUN/CREAT (test code = [...] code = 2219) 54 U/L COMPREHENSIVE METABOLIC [id number] 00:00:00* Test Item Value Reference Range Interpretation Comme nts GLUCOSE (test code = 2217) 80 MG/DL BUN (test code = 2208) 18 MG/DL CREATININE (test code = 2214) 1.06 MG/DL eGFR AMER. (test cod e = 93247) 67 ML/MIN/1.73 eGFR NON- AMER. (test code = 60477) 58 ML/MIN/1.73 CALC BUN/CREAT (test code = [...] (test code = 2219) 54 U/L [facility]AUTO [id number] 00:00:00* Test Item Value Reference Range Interpretation [...] ABS NUCLEATED RBCS (test cod e = 19649) 0.00 K/UL COMMENTS (test code = 1016) (NOTE) Delfino Schumacher [facility] W/AUTO [id number] 00:00:00* Test Item Value Reference Range Interpretation [...] ABS NUCLEATED RBCS (test cod e = 78454) 0.00 K/UL COMMENTS (test code = 1016) (NOTE) Delfino Schumacher [facility] [id number] 00:00:00* Test Item Value Reference Range Interpretation Comme nts CHOLESTEROL (test code = 2210) 174 MG/DL TRIGLYCERIDES (test code = 2232) 63 MG/DL HDL CHOLESTEROL (test code = 2220) 87 MG/DL CALC LDL CHOL (test code = 2237) 73 MG/DL RISK RATIO LDL/HDL (test cod e = 2238) 0.84 RATIO Delfino OrtaCOMPREHENSIVE METABOLIC [id number] 00:00:00* Test Item Value Reference Range Interpretation Comme nts GLUCOSE (test code = 2217) 80 MG/DL BUN (test code = 2208) 18 MG/DL CREATININE (test code = 2214) 1.06 MG/DL eGFR AMER. (test cod e = 18210) 67 ML/MIN/1.73 eGFR NON- AMER. (test code = 56171) 58 ML/MIN/1.73 CALC BUN/CREAT (test code = [...] = 2219) 54 U/L Delfino OrtaCBC W/AUTO [id number] 00:00:00* Test Item Value Reference Range Interpretation [...] ABS NUCLEATED RBCS (test cod e = 00503) 0.00 K/UL COMMENTS (test code = 1016) (NOTE) Delfino OrtaLIPID [id number] 00:00:00* Test Item Value Reference Range Interpretation Comme nts CHOLESTEROL (test code = 2210) 174 MG/DL TRIGLYCERIDES (test code = 2232) 63 MG/DL HDL CHOLESTEROL (test code = 2220) 87 MG/DL CALC LDL CHOL (test code = 2237) 73 MG/DL RISK RATIO LDL/HDL (test cod e = 2238) 0.84 RATIO Delfino OrtaCOMPREHENSIVE METABOLIC [id number] 00:00:00* Test Item Value Reference Range Interpretation Comme nts GLUCOSE (test code = 2217) 80 MG/DL BUN (test code = 2208) 18 MG/DL CREATININE (test code = 2214) 1.06 MG/DL eGFR AMER. (test cod e = 11107) 67 ML/MIN/1.73 eGFR NON- AMER. (test code = 66283) 58 ML/MIN/1.73 CALC BUN/CREAT (test code = [...] = 2219) 54 U/L Delfino OrtaCBC W/AUTO [id number] 00:00:00* Test Item Value Reference Range Interpretation [...] ABS NUCLEATED RBCS (test cod e = 08759) 0.00 K/UL COMMENTS (test code = 1016) (NOTE) Delfino Schumacher AustinLIPID [id number] 00:00:00* Test Item Value Reference Range Interpretation Comme nts CHOLESTEROL (test code = 2210) 174 MG/DL TRIGLYCERIDES (test code = 2232) 63 MG/DL HDL CHOLESTEROL (test code = 2220) 87 MG/DL CALC LDL CHOL (test code = 2237) 73 MG/DL RISK RATIO LDL/HDL (test cod e = 2238) 0.84 RATIO Delfino Schumacher AustinLIPID [id number] 00:00:00* Test Item Value Reference Range Interpretation Comme nts CHOLESTEROL (test code = 2210) 174 MG/DL TRIGLYCERIDES (test code = 2232) 63 MG/DL HDL CHOLESTEROL (test code = 2220) 87 MG/DL CALC LDL CHOL (test code = 2237) 73 MG/DL RISK RATIO LDL/HDL (test cod e = 2238) 0.84 RATIO Delfino Schumacher AustinCOMPREHENSIVE METABOLIC [id number] 00:00:00* Test Item Value Reference Range Interpretation Comme nts GLUCOSE (test code = 2217) 80 MG/DL BUN (test code = 2208) 18 MG/DL CREATININE (test code = 2214) 1.06 MG/DL eGFR AMER. (test cod e = 58008) 67 ML/MIN/1.73 eGFR NON- AMER. (test code = 96410) 58 ML/MIN/1.73 CALC BUN/CREAT (test code = [...] (test code = 2219) 54 U/L [facility] [id number] 00:00:00* Test Item Value Reference Range Interpretation [...] ABS NUCLEATED RBCS (test cod e = 46575) 0.00 K/UL COMMENTS (test code = 1016) (NOTE) Delfino Schumacher YouLIPID [id number] 00:00:00* Test Item Value Reference Range Interpretation Comme nts CHOLESTEROL (test code = 2210) 174 MG/DL TRIGLYCERIDES (test code = 2232) 63 MG/DL HDL CHOLESTEROL (test code = 2220) 87 MG/DL CALC LDL CHOL (test code = 2237) 73 MG/DL RISK RATIO LDL/HDL (test cod e = 2238) 0.84 RATIO Delfino Schumacher YouCOMPREHENSIVE METABOLIC [id number] 00:00:00* Test Item Value Reference Range Interpretation Comme nts GLUCOSE (test code = 2217) 80 MG/DL BUN (test code = 2208) 18 MG/DL CREATININE (test code = 2214) 1.06 MG/DL eGFR AMER. (test cod e = 62943) 67 ML/MIN/1.73 eGFR NON- AMER. (test code = 36810) 58 ML/MIN/1.73 CALC BUN/CREAT (test code = [...] code = 2219) 54 U/L Delfino Schumacher SsvffgSDIS-[id number]-3 (COVID-19) by RT-PCR (HIGH RISK)2020-01-21 00:00:00* Test Item Value Reference Range Interpretation Comme nts SARS-CoV-2 INTERPRETATION (t est code = 90751) NEGATIVE SOURCE (test code = 78920) NOT SPECIFIED Delfino Schumacher AdswenJWBQ-[id number]-4 (COVID-19) by RT-PCR (HIGH RISK)2020-01-21 00:00:00* Test Item Value Reference Range Interpretation Comme nts SARS-CoV-2 INTERPRETATION (t est code = 14897) NEGATIVE SOURCE (test code = 81297) NOT SPECIFIED Delfino Schumacher LbtrtrQPDR-AqW-7 (COVID-19) by RT-PCR (HIGH RISK)2020-01-21 00:00:00* Test Item Value Reference Range Interpretation Comme nts SARS-CoV-2 INTERPRETATION (t est code = 05906) NEGATIVE SOURCE (test code = 75431) NOT SPECIFIED Delfino Schumacher JnmikbMGQM-RcH-1 (COVID-19) by RT-PCR (HIGH RISK)2020-01-21 00:00:00* Test Item Value Reference Range Interpretation Comme nts SARS-CoV-2 INTERPRETATION (t est code = 02818) NEGATIVE SOURCE (test code = 45745) NOT SPECIFIED Delfino Schumacher DpsrhjZPGL-SfB-1 (COVID-19) by RT-PCR (HIGH RISK)2020-01-21 00:00:00* Test Item Value Reference Range Interpretation Comme nts SARS-CoV-2 INTERPRETATION (t est code = 14473) NEGATIVE SOURCE (test code = 62885) NOT SPECIFIED Delfino Schumacher OawrxaRKYO-HwH-6 (COVID-19) by RT-PCR (HIGH RISK)2020-01-21 00:00:00* Test Item Value Reference Range Interpretation Comme nts SARS-CoV-2 INTERPRETATION (t est code = 43203) NEGATIVE SOURCE (test code = 44506) NOT SPECIFIED Delfino Schumacher HrpcxkHNRB-AiU-3 (COVID-19) by RT-PCR (HIGH RISK)2020-01-21 00:00:00* Test Item Value Reference Range Interpretation Comme nts SARS-CoV-2 INTERPRETATION (t est code = 16919) NEGATIVE SOURCE (test code = 91942) NOT SPECIFIED Delfino Schumacher DqivrzBDXX-YxX-6 (COVID-19) by RT-PCR (HIGH RISK)2020-01-21 00:00:00* Test Item Value Reference Range Interpretation Comme nts SARS-CoV-2 INTERPRETATION (t est code = 67420) NEGATIVE SOURCE (test code = 37180) NOT SPECIFIED Delfino Schumacher MsihnsXSKL-KaA-1 (COVID-19) by RT-PCR (HIGH RISK)2020-01-21 00:00:00* Test Item Value Reference Range Interpretation Comme nts SARS-CoV-2 INTERPRETATION (t est code = 48649) NEGATIVE SOURCE (test code = 51541) NOT SPECIFIED Delfino Schumacher WlzrvxAEXH-HlU-6 (COVID-19) by RT-PCR (HIGH RISK)2020-01-21 00:00:00* Test Item Value Reference Range Interpretation Comme nts SARS-CoV-2 INTERPRETATION (t est code = 66503) NEGATIVE SOURCE (test code = 55882) NOT SPECIFIED Delfino Schumacher FdhosuYOYT-VzV-3 (COVID-19) by RT-PCR (HIGH RISK)2020-01-21 00:00:00* Test Item Value Reference Range Interpretation Comme nts SARS-CoV-2 INTERPRETATION (t est code = 85651) NEGATIVE SOURCE (test code = 24916) NOT SPECIFIED SARS-CoV-2 (COVID-19) by RT-PCR (HIGH RISK)2020-01-21 00:00:00* Test Item Value Reference Range Interpretation Comme nts SARS-CoV-2 INTERPRETATION (t est code = 85521) NEGATIVE SOURCE (test code = 79639) NOT SPECIFIED SARS-CoV-2 (COVID-19) by RT-PCR (HIGH RISK)2020-01-21 00:00:00* Test Item Value Reference Range Interpretation Comme nts SARS-CoV-2 INTERPRETATION (t est code = 14272) NEGATIVE SOURCE (test code = 11191) NOT SPECIFIED SARS-CoV-2 (COVID-19) by RT-PCR (HIGH RISK)2020-01-21 00:00:00* Test Item Value Reference Range Interpretation Comme nts SARS-CoV-2 INTERPRETATION (t est code = 70054) NEGATIVE SOURCE (test code = 36462) NOT SPECIFIED SARS-CoV-2 (COVID-19) by RT-PCR (HIGH RISK)2020-01-21 00:00:00* Test Item Value Reference Range Interpretation Comme nts SARS-CoV-2 INTERPRETATION (t est code = 14250) NEGATIVE SOURCE (test code = 53121) NOT SPECIFIED Delfino Schumacher NxumxtHPIU-NtF-3 (COVID-19) by RT-PCR (HIGH RISK)2020-01-21 00:00:00* Test Item Value Reference Range Interpretation Comme nts SARS-CoV-2 INTERPRETATION (t est code = 21545) NEGATIVE SOURCE (test code = 06241) NOT SPECIFIED Delfino Schumacher VwhnhxKIXG-XvA-4 (COVID-19) by RT-PCR (HIGH RISK)2020-01-21 00:00:00* Test Item Value Reference Range Interpretation Comme nts SARS-CoV-2 INTERPRETATION (t est code = 85924) NEGATIVE SOURCE (test code = 79587) NOT SPECIFIED Delfino Schumacher MktoxpRUAC-AjW-3 (COVID-19) by RT-PCR (HIGH RISK)2020-01-21 00:00:00* Test Item Value Reference Range Interpretation Comme nts SARS-CoV-2 INTERPRETATION (t est code = 31051) NEGATIVE SOURCE (test code = 12961) NOT SPECIFIED Delfino Schumacher AkqtyhXFCY-SrU-2 (COVID-19) by RT-PCR (HIGH RISK)2020-01-21 00:00:00* Test Item Value Reference Range Interpretation Comme nts SARS-CoV-2 INTERPRETATION (t est code = 70542) NEGATIVE SOURCE (test code = 52906) NOT SPECIFIED Delfino OrtaCOMPREHENSIVE METABOLIC [id number] 00:00:00* Test Item Value Reference Range Interpretation Comme nts GLUCOSE (test code = 2217) 86 MG/DL BUN (test code = 2208) 16 MG/DL CREATININE (test code = 2214) 0.90 MG/DL eGFR AMER. (test cod e = 62765) 83 ML/MIN/1.73 eGFR NON- AMER. (test code = 42289) 71 ML/MIN/1.73 CALC BUN/CREAT (test code = [...] = 2219) 29 U/L Delfino OrtaCBC W/AUTO [id number] 00:00:00* Test Item Value Reference Range Interpretation [...] = 1015) 186 K/UL Delfino OrtaCOMPREHENSIVE METABOLIC [id number] 00:00:00* Test Item Value Reference Range Interpretation Comme nts GLUCOSE (test code = 2217) 86 MG/DL BUN (test code = 2208) 16 MG/DL CREATININE (test code = 2214) 0.90 MG/DL eGFR AMER. (test cod e = 48444) 83 ML/MIN/1.73 eGFR NON- AMER. (test code = 88557) 71 ML/MIN/1.73 CALC BUN/CREAT (test code = [...] (test code = 2219) 29 U/L Delfino Endy YouCBC W/AUTO [id number] 00:00:00* Test Item Value Reference Range Interpretation [...] (test code = 1015) 186 K/UL Delfino F YouCOMPREHENSIVE METABOLIC [id number] 00:00:00* Test Item Value Reference Range Interpretation Comme nts GLUCOSE (test code = 2217) 86 MG/DL BUN (test code = 2208) 16 MG/DL CREATININE (test code = 2214) 0.90 MG/DL eGFR AMER. (test cod e = 13767) 83 ML/MIN/1.73 eGFR NON- AMER. (test code = 38362) 71 ML/MIN/1.73 CALC BUN/CREAT (test code = [...] = 2219) 29 U/L Delfino OrtaCBC W/AUTO [id number] 00:00:00* Test Item Value Reference Range Interpretation [...] = 1015) 186 K/UL Delfino OrtaCOMPREHENSIVE METABOLIC [id number] 00:00:00* Test Item Value Reference Range Interpretation Comme nts GLUCOSE (test code = 2217) 86 MG/DL BUN (test code = 2208) 16 MG/DL CREATININE (test code = 2214) 0.90 MG/DL eGFR AMER. (test cod e = 21004) 83 ML/MIN/1.73 eGFR NON- AMER. (test code = 95368) 71 ML/MIN/1.73 CALC BUN/CREAT (test code = [...] = 2219) 29 U/L Delfino OrtaCBC W/AUTO [id number] 00:00:00* Test Item Value Reference Range Interpretation [...] = 1015) 186 K/UL Delfino OrtaCOMPREHENSIVE METABOLIC [id number] 00:00:00* Test Item Value Reference Range Interpretation Comme nts GLUCOSE (test code = 2217) 86 MG/DL BUN (test code = 2208) 16 MG/DL CREATININE (test code = 2214) 0.90 MG/DL eGFR AMER. (test cod e = 62948) 83 ML/MIN/1.73 eGFR NON- AMER. (test code = 34194) 71 ML/MIN/1.73 CALC BUN/CREAT (test code = [...] code = 2219) 29 U/L Delfino F YouCBC W/AUTO [id number] 00:00:00* Test Item Value Reference Range Interpretation [...] 1015) 186 K/UL Delfino Schumacher YouCOMPREHENSIVE METABOLIC [id number] 00:00:00* Test Item Value Reference Range Interpretation Comme nts GLUCOSE (test code = 2217) 86 MG/DL BUN (test code = 2208) 16 MG/DL CREATININE (test code = 2214) 0.90 MG/DL eGFR AMER. (test cod e = 81437) 83 ML/MIN/1.73 eGFR NON- AMER. (test code = 52011) 71 ML/MIN/1.73 CALC BUN/CREAT (test code = [...] (test code = 2219) 29 U/L Delfino Endy YouCBC W/AUTO [id number] 00:00:00* Test Item Value Reference Range Interpretation [...] (test code = 1015) 186 K/UL Delfino F YouCOMPREHENSIVE METABOLIC [id number] 00:00:00* Test Item Value Reference Range Interpretation Comme nts GLUCOSE (test code = 2217) 86 MG/DL BUN (test code = 2208) 16 MG/DL CREATININE (test code = 2214) 0.90 MG/DL eGFR AMER. (test cod e = 37154) 83 ML/MIN/1.73 eGFR NON- AMER. (test code = 88650) 71 ML/MIN/1.73 CALC BUN/CREAT (test code = [...] = 2219) 29 U/L Delfino OrtaCBC W/AUTO [id number] 00:00:00* Test Item Value Reference Range Interpretation [...] = 1015) 186 K/UL Delfino OrtaCOMPREHENSIVE METABOLIC [id number] 00:00:00* Test Item Value Reference Range Interpretation Comme nts GLUCOSE (test code = 2217) 86 MG/DL BUN (test code = 2208) 16 MG/DL CREATININE (test code = 2214) 0.90 MG/DL eGFR AMER. (test cod e = 44659) 83 ML/MIN/1.73 eGFR NON- AMER. (test code = 83055) 71 ML/MIN/1.73 CALC BUN/CREAT (test code = [...] = 2219) 29 U/L Delfino OrtaCBC W/AUTO [id number] 00:00:00* Test Item Value Reference Range Interpretation [...] = 1015) 186 K/UL Delfino OrtaCOMPREHENSIVE METABOLIC [id number] 00:00:00* Test Item Value Reference Range Interpretation Comme nts GLUCOSE (test code = 2217) 86 MG/DL BUN (test code = 2208) 16 MG/DL CREATININE (test code = 2214) 0.90 MG/DL eGFR AMER. (test cod e = 81882) 83 ML/MIN/1.73 eGFR NON- AMER. (test code = 47490) 71 ML/MIN/1.73 CALC BUN/CREAT (test code = [...] = 2219) 29 U/L Delfino OrtaCBC W/AUTO [id number] 00:00:00* Test Item Value Reference Range Interpretation [...] = 1015) 186 K/UL Delfino OrtaCOMPREHENSIVE METABOLIC [id number] 00:00:00* Test Item Value Reference Range Interpretation Comme nts GLUCOSE (test code = 2217) 86 MG/DL BUN (test code = 2208) 16 MG/DL CREATININE (test code = 2214) 0.90 MG/DL eGFR AMER. (test cod e = 55254) 83 ML/MIN/1.73 eGFR NON- AMER. (test code = 11667) 71 ML/MIN/1.73 CALC BUN/CREAT (test code = [...] (test code = 2219) 29 U/L Delfino Endy YouCOMPREHENSIVE METABOLIC [id number] 00:00:00* Test Item Value Reference Range Interpretation Comme nts GLUCOSE (test code = 2217) 86 MG/DL BUN (test code = 2208) 16 MG/DL CREATININE (test code = 2214) 0.90 MG/DL eGFR AMER. (test cod e = 70403) 83 ML/MIN/1.73 eGFR NON- AMER. (test code = 85042) 71 ML/MIN/1.73 CALC BUN/CREAT (test code = [...] = 2219) 29 U/L Delfino OrtaCOMPREHENSIVE METABOLIC [id number] 00:00:00* Test Item Value Reference Range Interpretation Comme nts GLUCOSE (test code = 2217) 86 MG/DL BUN (test code = 2208) 16 MG/DL CREATININE (test code = 2214) 0.90 MG/DL eGFR AMER. (test cod e = 42508) 83 ML/MIN/1.73 eGFR NON- AMER. (test code = 15137) 71 ML/MIN/1.73 CALC BUN/CREAT (test code = [...] code = 2219) 29 U/L CBC W/AUTO [id number] 00:00:00* Test Item Value Reference Range Interpretation [...] code = 1015) 186 K/UL COMPREHENSIVE METABOLIC [id number] 00:00:00* Test Item Value Reference Range Interpretation Comme nts GLUCOSE (test code = 2217) 86 MG/DL BUN (test code = 2208) 16 MG/DL CREATININE (test code = 2214) 0.90 MG/DL eGFR AMER. (test cod e = 54967) 83 ML/MIN/1.73 eGFR NON- AMER. (test code = 59163) 71 ML/MIN/1.73 CALC BUN/CREAT (test code = [...] code = 2219) 29 U/L CBC W/AUTO [id number] 00:00:00* Test Item Value Reference Range Interpretation [...] code = 1015) 186 K/UL COMPREHENSIVE METABOLIC [id number] 00:00:00* Test Item Value Reference Range Interpretation Comme nts GLUCOSE (test code = 2217) 86 MG/DL BUN (test code = 2208) 16 MG/DL CREATININE (test code = 2214) 0.90 MG/DL eGFR AMER. (test cod e = 06971) 83 ML/MIN/1.73 eGFR NON- AMER. (test code = 81290) 71 ML/MIN/1.73 CALC BUN/CREAT (test code = [...] code = 2219) 29 U/L CBC W/AUTO [id number] 00:00:00* Test Item Value Reference Range Interpretation [...] code = 1015) 186 K/UL COMPREHENSIVE METABOLIC [id number] 00:00:00* Test Item Value Reference Range Interpretation Comme nts GLUCOSE (test code = 2217) 86 MG/DL BUN (test code = 2208) 16 MG/DL CREATININE (test code = 2214) 0.90 MG/DL eGFR AMER. (test cod e = 55050) 83 ML/MIN/1.73 eGFR NON- AMER. (test code = 04104) 71 ML/MIN/1.73 CALC BUN/CREAT (test code = [...] code = 2219) 29 U/L CBC W/AUTO [id number] 00:00:00* Test Item Value Reference Range Interpretation [...] code = 1015) 186 K/UL CBC W/AUTO [id number] 00:00:00* Test Item Value Reference Range Interpretation [...] code = 1015) 186 K/UL Delfino Schumacher AustinCOMPREHENSIVE METABOLIC [id number] 00:00:00* Test Item Value Reference Range Interpretation Comme nts GLUCOSE (test code = 2217) 86 MG/DL BUN (test code = 2208) 16 MG/DL CREATININE (test code = 2214) 0.90 MG/DL eGFR AMER. (test cod e = 44417) 83 ML/MIN/1.73 eGFR NON- AMER. (test code = 62942) 71 ML/MIN/1.73 CALC BUN/CREAT (test code = [...] = 2219) 29 U/L Delfino OrtaCBC W/AUTO [id number] 00:00:00* Test Item Value Reference Range Interpretation [...] = 1015) 186 K/UL Delfino OrtaCOMPREHENSIVE METABOLIC [id number] 00:00:00* Test Item Value Reference Range Interpretation Comme nts GLUCOSE (test code = 2217) 86 MG/DL BUN (test code = 2208) 16 MG/DL CREATININE (test code = 2214) 0.90 MG/DL eGFR AMER. (test cod e = 68456) 83 ML/MIN/1.73 eGFR NON- AMER. (test code = 08332) 71 ML/MIN/1.73 CALC BUN/CREAT (test code = [...] = 2219) 29 U/L Delfino OrtaCBC W/AUTO [id number] 00:00:00* Test Item Value Reference Range Interpretation [...] code = 1015) 186 K/UL Delfino Schumacher AustinCBC W/AUTO [id number] 00:00:00* Test Item Value Reference Range Interpretation [...] = 1015) 186 K/UL Delfino OrtaCOMPREHENSIVE METABOLIC [id number] 00:00:00* Test Item Value Reference Range Interpretation Comme nts GLUCOSE (test code = 2217) 86 MG/DL BUN (test code = 2208) 16 MG/DL CREATININE (test code = 2214) 0.90 MG/DL eGFR AMER. (test cod e = 06816) 83 ML/MIN/1.73 eGFR NON- AMER. (test code = 07765) 71 ML/MIN/1.73 CALC BUN/CREAT (test code = [...] = 2219) 29 U/L Delfino OrtaCBC W/AUTO [id number] 00:00:00* Test Item Value Reference Range Interpretation [...] = 1015) 186 K/UL Delfino OrtaCOMPREHENSIVE METABOLIC [id number] 00:00:00* Test Item Value Reference Range Interpretation Comme nts GLUCOSE (test code = 2217) 86 MG/DL BUN (test code = 2208) 16 MG/DL CREATININE (test code = 2214) 0.90 MG/DL eGFR AMER. (test cod e = 03407) 83 ML/MIN/1.73 eGFR NON- AMER. (test code = 99176) 71 ML/MIN/1.73 CALC BUN/CREAT (test code = [...] code = 2219) 29 U/L Delfino Schumacher VIRxSYSC W/AUTO [id number] 00:00:00* Test Item Value Reference Range Interpretation [...] code = 1015) 186 K/UL Delfino Schumacher VIRxSYSC W/AUTO [id number] 00:00:00* Test Item Value Reference Range Interpretation [...] (test code = 1016) (NOTE) Delfino Endy [facility] [id number] 00:00:00* Test Item Value Reference Range Interpretation [...] (test code = 1016) (NOTE) Delfino Endy [facility]AUTO [id number] 00:00:00* Test Item Value Reference Range Interpretation [...] (test code = 1016) (NOTE) [facility] [id number] 00:00:00* Test Item Value Reference Range Interpretation [...] (test code = 1016) (NOTE) [facility] [id number] 00:00:00* Test Item Value Reference Range Interpretation [...] (test code = 1016) (NOTE) Delfino Schumacher [facility] W/AUTO [id number] 00:00:00* Test Item Value Reference Range Interpretation [...] (test code = 1016) (NOTE) Delfino Schumacher [facility] W/AUTO [id number] 00:00:00* Test Item Value Reference Range Interpretation [...] code = 1016) (NOTE) Delfino OrtaC W/AUTO [id number] 00:00:00* Test Item Value Reference Range Interpretation [...] (test code = 1016) (NOTE) Delfino Schumacher [facility] W/AUTO [id number] 00:00:00* Test Item Value Reference Range Interpretation [...] (test code = 1016) (NOTE) Delfino Schumacher [facility] W/AUTO [id number] 00:00:00* Test Item Value Reference Range Interpretation [...] code = 1016) (NOTE) Delfino OrtaCBC W/AUTO [id number] 00:00:00* Test Item Value Reference Range Interpretation [...] (test code = 1016) (NOTE) CBC W/AUTO [id number] 00:00:00* Test Item Value Reference Range Interpretation [...] (test code = 1016) (NOTE) CBC W/AUTO [id number] 00:00:00* Test Item Value Reference Range Interpretation [...] (test code = 1016) (NOTE) CBC W/AUTO [id number] 00:00:00* Test Item Value Reference Range Interpretation [...] (test code = 1016) (NOTE) CBC W/AUTO [id number] 00:00:00* Test Item Value Reference Range Interpretation [...] (test code = 1016) (NOTE) Delfino Endy [facility] W/AUTO [id number] 00:00:00* Test Item Value Reference Range Interpretation [...] (test code = 1016) (NOTE) Delfino Endy [facility] W/AUTO [id number] 00:00:00* Test Item Value Reference Range Interpretation [...] (test code = 1016) (NOTE) Delfino Schumacher [employer] W/AUTO [id number] 00:00:00* Test Item Value Reference Range Interpretation [...] (test code = 1016) (NOTE) Delfino Schumacher [employer]C W/AUTO [id number] 00:00:00* Test Item Value Reference Range Interpretation [...] code = 1016) (NOTE) Delfino OrtaCBC W/AUTO [id number] 00:00:00* Test Item Value Reference Range Interpretation [...] = 1016) (NOTE) Delfino OrtaVAGINAL PATHOGENS DNA [id number] 00:00:00* Test Item Value Reference Range Interpretation Comme nts DIANNA SPECIES (test code = ) NEGATIVE G. VAGINALIS (test code = ) POSITIVE T. VAGINALIS (test code = ) NEGATIVE Delfino OrtaCOMPREHENSIVE METABOLIC [id number] 00:00:00* Test Item Value Reference Range Interpretation Comme nts GLUCOSE (test code = 2217) 92 MG/DL BUN (test code = 2208) 20 MG/DL CREATININE (test code = 2214) 1.31 MG/DL eGFR AMER. (test cod e = 62984) 53 ML/MIN/1.73 eGFR NON- AMER. (test code = 88049) 45 ML/MIN/1.73 CALC BUN/CREAT (test code = [...] (test code = 2219) 16 U/L Delfino Endy YouCBC W/AUTO [id number] 00:00:00* Test Item Value Reference Range Interpretation [...] (test code = 1016) (NOTE) Delfino Endy YouVAGINAL PATHOGENS DNA [id number] 00:00:00* Test Item Value Reference Range Interpretation Comme nts DIANNA SPECIES (test code = ) NEGATIVE G. VAGINALIS (test code = ) POSITIVE T. VAGINALIS (test code = ) NEGATIVE Delfino F YouCOMPREHENSIVE METABOLIC [id number] 00:00:00* Test Item Value Reference Range Interpretation Comme nts GLUCOSE (test code = 2217) 92 MG/DL BUN (test code = 2208) 20 MG/DL CREATININE (test code = 2214) 1.31 MG/DL eGFR AMER. (test cod e = 72598) 53 ML/MIN/1.73 eGFR NON- AMER. (test code = 84163) 45 ML/MIN/1.73 CALC BUN/CREAT (test code = [...] = 2219) 16 U/L Delfino OrtaCBC W/AUTO [id number] 00:00:00* Test Item Value Reference Range Interpretation [...] = 1016) (NOTE) Delfino OrtaVAGINAL PATHOGENS DNA [id number] 00:00:00* Test Item Value Reference Range Interpretation Comme nts DIANNA SPECIES (test code = ) NEGATIVE G. VAGINALIS (test code = ) POSITIVE T. VAGINALIS (test code = ) NEGATIVE Delfino OrtaCOMPREHENSIVE METABOLIC [id number] 00:00:00* Test Item Value Reference Range Interpretation Comme nts GLUCOSE (test code = 2217) 92 MG/DL BUN (test code = 2208) 20 MG/DL CREATININE (test code = 2214) 1.31 MG/DL eGFR AMER. (test cod e = 60257) 53 ML/MIN/1.73 eGFR NON- AMER. (test code = 50903) 45 ML/MIN/1.73 CALC BUN/CREAT (test code = [...] (test code = 2219) 16 U/L Delfino Schumacher YouCBC W/AUTO [id number] 00:00:00* Test Item Value Reference Range Interpretation [...] = 1016) (NOTE) Delfino OrtaVAGINAL PATHOGENS DNA [id number] 00:00:00* Test Item Value Reference Range Interpretation Comme nts DIANNA SPECIES (test code = ) NEGATIVE G. VAGINALIS (test code = ) POSITIVE T. VAGINALIS (test code = ) NEGATIVE Delfino OrtaCOMPREHENSIVE METABOLIC [id number] 00:00:00* Test Item Value Reference Range Interpretation Comme nts GLUCOSE (test code = 2217) 92 MG/DL BUN (test code = 2208) 20 MG/DL CREATININE (test code = 2214) 1.31 MG/DL eGFR AMER. (test cod e = 00647) 53 ML/MIN/1.73 eGFR NON- AMER. (test code = 66311) 45 ML/MIN/1.73 CALC BUN/CREAT (test code = [...] = 2219) 16 U/L Delfino OrtaCBC W/AUTO [id number] 00:00:00* Test Item Value Reference Range Interpretation [...] = 1016) (NOTE) Delfino OrtaVAGINAL PATHOGENS DNA [id number] 00:00:00* Test Item Value Reference Range Interpretation Comme nts DIANNA SPECIES (test code = ) NEGATIVE G. VAGINALIS (test code = ) POSITIVE T. VAGINALIS (test code = ) NEGATIVE Delfino Endy OrtaCOMPREHENSIVE METABOLIC [id number] 00:00:00* Test Item Value Reference Range Interpretation Comme nts GLUCOSE (test code = 2217) 92 MG/DL BUN (test code = 2208) 20 MG/DL CREATININE (test code = 2214) 1.31 MG/DL eGFR AMER. (test cod e = 11684) 53 ML/MIN/1.73 eGFR NON- AMER. (test code = 78900) 45 ML/MIN/1.73 CALC BUN/CREAT (test code = [...] = 2219) 16 U/L Delfino OrtaCBC W/AUTO [id number] 00:00:00* Test Item Value Reference Range Interpretation [...] = 1016) (NOTE) Delfino OrtaVAGINAL PATHOGENS DNA [id number] 00:00:00* Test Item Value Reference Range Interpretation Comme nts DIANNA SPECIES (test code = ) NEGATIVE G. VAGINALIS (test code = ) POSITIVE T. VAGINALIS (test code = ) NEGATIVE Delfino OrtaCOMPREHENSIVE METABOLIC [id number] 00:00:00* Test Item Value Reference Range Interpretation Comme nts GLUCOSE (test code = 2217) 92 MG/DL BUN (test code = 2208) 20 MG/DL CREATININE (test code = 2214) 1.31 MG/DL eGFR AMER. (test cod e = 11451) 53 ML/MIN/1.73 eGFR NON- AMER. (test code = 96004) 45 ML/MIN/1.73 CALC BUN/CREAT (test code = [...] = 2219) 16 U/L Delfino OrtaCBC W/AUTO [id number] 00:00:00* Test Item Value Reference Range Interpretation [...] = 1016) (NOTE) Delfino OrtaVAGINAL PATHOGENS DNA [id number] 00:00:00* Test Item Value Reference Range Interpretation Comme nts DIANNA SPECIES (test code = ) NEGATIVE G. VAGINALIS (test code = 61367) POSITIVE T. VAGINALIS (test code = 68914) NEGATIVE Delfino OrtaCOMPREHENSIVE METABOLIC [id number] 00:00:00* Test Item Value Reference Range Interpretation Comme nts GLUCOSE (test code = 2217) 92 MG/DL BUN (test code = 2208) 20 MG/DL CREATININE (test code = 2214) 1.31 MG/DL eGFR AMER. (test cod e = 57819) 53 ML/MIN/1.73 eGFR NON- AMER. (test code = 38696) 45 ML/MIN/1.73 CALC BUN/CREAT (test code = [...] = 2219) 16 U/L Delfino OrtaCBC W/AUTO [id number] 00:00:00* Test Item Value Reference Range Interpretation [...] = 1016) (NOTE) Delfino OrtaVAGINAL PATHOGENS DNA [id number] 00:00:00* Test Item Value Reference Range Interpretation Comme nts DIANNA SPECIES (test code = ) NEGATIVE G. VAGINALIS (test code = ) POSITIVE T. VAGINALIS (test code = ) NEGATIVE Delfino OrtaCOMPREHENSIVE METABOLIC [id number] 00:00:00* Test Item Value Reference Range Interpretation Comme nts GLUCOSE (test code = 2217) 92 MG/DL BUN (test code = 2208) 20 MG/DL CREATININE (test code = 2214) 1.31 MG/DL eGFR AMER. (test cod e = 32459) 53 ML/MIN/1.73 eGFR NON- AMER. (test code = 40020) 45 ML/MIN/1.73 CALC BUN/CREAT (test code = [...] (test code = 2219) 16 U/L Delfino Schumacher [facility] W/AUTO [id number] 00:00:00* Test Item Value Reference Range Interpretation [...] = 1016) (NOTE) Delfino OrtaVAGINAL PATHOGENS DNA [id number] 00:00:00* Test Item Value Reference Range Interpretation Comme nts DIANNA SPECIES (test code = ) NEGATIVE G. VAGINALIS (test code = ) POSITIVE T. VAGINALIS (test code = ) NEGATIVE Delfino OrtaCOMPREHENSIVE METABOLIC [id number] 00:00:00* Test Item Value Reference Range Interpretation Comme nts GLUCOSE (test code = 2217) 92 MG/DL BUN (test code = 2208) 20 MG/DL CREATININE (test code = 2214) 1.31 MG/DL eGFR AMER. (test cod e = 98527) 53 ML/MIN/1.73 eGFR NON- AMER. (test code = 86508) 45 ML/MIN/1.73 CALC BUN/CREAT (test code = [...] = 2219) 16 U/L Delfino OrtaCBC W/AUTO [id number] 00:00:00* Test Item Value Reference Range Interpretation [...] 1016) (NOTE) Delfino Schumacher AustinVAGINAL PATHOGENS DNA [id number] 00:00:00* Test Item Value Reference Range Interpretation Comme nts DIANNA SPECIES (test code = ) NEGATIVE G. VAGINALIS (test code = 28621) POSITIVE T. VAGINALIS (test code = 05955) NEGATIVE Delfino Schumacher AustinVAGINAL PATHOGENS DNA [id number] 00:00:00* Test Item Value Reference Range Interpretation Comme nts DIANNA SPECIES (test code = ) NEGATIVE G. VAGINALIS (test code = 79424) POSITIVE T. VAGINALIS (test code = 00621) NEGATIVE COMPREHENSIVE METABOLIC [id number] 00:00:00* Test Item Value Reference Range Interpretation Comme nts GLUCOSE (test code = 2217) 92 MG/DL BUN (test code = 2208) 20 MG/DL CREATININE (test code = 2214) 1.31 MG/DL eGFR AMER. (test cod e = 06447) 53 ML/MIN/1.73 eGFR NON- AMER. (test code = 14975) 45 ML/MIN/1.73 CALC BUN/CREAT (test code = [...] code = 2219) 16 U/L CBC W/AUTO [id number] 00:00:00* Test Item Value Reference Range Interpretation [...] code = 1016) (NOTE) VAGINAL PATHOGENS DNA [id number] 00:00:00* Test Item Value Reference Range Interpretation Comme nts DIANNA SPECIES (test code = ) NEGATIVE G. VAGINALIS (test code = ) POSITIVE T. VAGINALIS (test code = ) NEGATIVE COMPREHENSIVE METABOLIC [id number] 00:00:00* Test Item Value Reference Range Interpretation Comme nts GLUCOSE (test code = 2217) 92 MG/DL BUN (test code = 2208) 20 MG/DL CREATININE (test code = 2214) 1.31 MG/DL eGFR AMER. (test cod e = 65707) 53 ML/MIN/1.73 eGFR NON- AMER. (test code = 63577) 45 ML/MIN/1.73 CALC BUN/CREAT (test code = [...] code = 2219) 16 U/L CBC W/AUTO [id number] 00:00:00* Test Item Value Reference Range Interpretation [...] code = 1016) (NOTE) VAGINAL PATHOGENS DNA [id number] 00:00:00* Test Item Value Reference Range Interpretation Comme nts DIANNA SPECIES (test code = ) NEGATIVE G. VAGINALIS (test code = ) POSITIVE T. VAGINALIS (test code = ) NEGATIVE COMPREHENSIVE METABOLIC [id number] 00:00:00* Test Item Value Reference Range Interpretation Comme nts GLUCOSE (test code = 2217) 92 MG/DL BUN (test code = 2208) 20 MG/DL CREATININE (test code = 2214) 1.31 MG/DL eGFR AMER. (test cod e = 34436) 53 ML/MIN/1.73 eGFR NON- AMER. (test code = 26928) 45 ML/MIN/1.73 CALC BUN/CREAT (test code = [...] code = 2219) 16 U/L CBC W/AUTO [id number] 00:00:00* Test Item Value Reference Range Interpretation [...] code = 1016) (NOTE) VAGINAL PATHOGENS DNA [id number] 00:00:00* Test Item Value Reference Range Interpretation Comme nts DIANNA SPECIES (test code = ) NEGATIVE G. VAGINALIS (test code = ) POSITIVE T. VAGINALIS (test code = ) NEGATIVE COMPREHENSIVE METABOLIC [id number] 00:00:00* Test Item Value Reference Range Interpretation Comme nts GLUCOSE (test code = 2217) 92 MG/DL BUN (test code = 2208) 20 MG/DL CREATININE (test code = 2214) 1.31 MG/DL eGFR AMER. (test cod e = 32304) 53 ML/MIN/1.73 eGFR NON- AMER. (test code = 97390) 45 ML/MIN/1.73 CALC BUN/CREAT (test code = [...] code = 2219) 16 U/L CBC W/AUTO [id number] 00:00:00* Test Item Value Reference Range Interpretation [...] (test code = 1016) (NOTE) COMPREHENSIVE METABOLIC [id number] 00:00:00* Test Item Value Reference Range Interpretation Comme nts GLUCOSE (test code = 2217) 92 MG/DL BUN (test code = 2208) 20 MG/DL CREATININE (test code = 2214) 1.31 MG/DL eGFR AMER. (test cod e = 44668) 53 ML/MIN/1.73 eGFR NON- AMER. (test code = 42518) 45 ML/MIN/1.73 CALC BUN/CREAT (test code = [...] (test code = 2219) 16 U/L Delfino OrtaC W/AUTO [id number] 00:00:00* Test Item Value Reference Range Interpretation [...] = 1016) (NOTE) Delfino OrtaVAGINAL PATHOGENS DNA [id number] 00:00:00* Test Item Value Reference Range Interpretation Comme nts DIANNA SPECIES (test code = ) NEGATIVE G. VAGINALIS (test code = 22556) POSITIVE T. VAGINALIS (test code = 31005) NEGATIVE Delfino OrtaVAGINAL PATHOGENS DNA [id number] 00:00:00* Test Item Value Reference Range Interpretation Comme nts DIANNA SPECIES (test code = ) NEGATIVE G. VAGINALIS (test code = 32923) POSITIVE T. VAGINALIS (test code = 88765) NEGATIVE Delfino OrtaCOMPREHENSIVE METABOLIC [id number] 00:00:00* Test Item Value Reference Range Interpretation Comme nts GLUCOSE (test code = 2217) 92 MG/DL BUN (test code = 2208) 20 MG/DL CREATININE (test code = 2214) 1.31 MG/DL eGFR AMER. (test cod e = 83161) 53 ML/MIN/1.73 eGFR NON- AMER. (test code = 31354) 45 ML/MIN/1.73 CALC BUN/CREAT (test code = [...] = 2219) 16 U/L Delfino OrtaCBC W/AUTO [id number] 00:00:00* Test Item Value Reference Range Interpretation [...] = 1016) (NOTE) Delfino OrtaVAGINAL PATHOGENS DNA [id number] 00:00:00* Test Item Value Reference Range Interpretation Comme nts DIANNA SPECIES (test code = ) NEGATIVE G. VAGINALIS (test code = ) POSITIVE T. VAGINALIS (test code = ) NEGATIVE Delfino OrtaCOMPREHENSIVE METABOLIC [id number] 00:00:00* Test Item Value Reference Range Interpretation Comme nts GLUCOSE (test code = 2217) 92 MG/DL BUN (test code = 2208) 20 MG/DL CREATININE (test code = 2214) 1.31 MG/DL eGFR AMER. (test cod e = 29661) 53 ML/MIN/1.73 eGFR NON- AMER. (test code = 57182) 45 ML/MIN/1.73 CALC BUN/CREAT (test code = [...] = 2219) 16 U/L Delfino OrtaCBC W/AUTO [id number] 00:00:00* Test Item Value Reference Range Interpretation [...] 1016) (NOTE) Delfino Schumacher AustinVAGINAL PATHOGENS DNA [id number] 00:00:00* Test Item Value Reference Range Interpretation Comme nts DIANNA SPECIES (test code = ) NEGATIVE G. VAGINALIS (test code = ) POSITIVE T. VAGINALIS (test code = 68965) NEGATIVE Delfino Schumacher YouCOMPREHENSIVE METABOLIC [id number] 00:00:00* Test Item Value Reference Range Interpretation Comme nts GLUCOSE (test code = 2217) 92 MG/DL BUN (test code = 2208) 20 MG/DL CREATININE (test code = 2214) 1.31 MG/DL eGFR AMER. (test cod e = 58646) 53 ML/MIN/1.73 eGFR NON- AMER. (test code = 51868) 45 ML/MIN/1.73 CALC BUN/CREAT (test code = [...] (test code = 2219) 16 U/L Delfino OrtaCOMPREHENSIVE METABOLIC [id number] 00:00:00* Test Item Value Reference Range Interpretation Comme nts GLUCOSE (test code = 2217) 92 MG/DL BUN (test code = 2208) 20 MG/DL CREATININE (test code = 2214) 1.31 MG/DL eGFR AMER. (test cod e = 31919) 53 ML/MIN/1.73 eGFR NON- AMER. (test code = 25964) 45 ML/MIN/1.73 CALC BUN/CREAT (test code = [...] = 2219) 16 U/L Delfino OrtaCBC W/AUTO [id number] 00:00:00* Test Item Value Reference Range Interpretation [...] = 1016) (NOTE) Delfino OrtaVAGINAL PATHOGENS DNA [id number] 00:00:00* Test Item Value Reference Range Interpretation Comme nts DIANNA SPECIES (test code = ) NEGATIVE G. VAGINALIS (test code = ) POSITIVE T. VAGINALIS (test code = ) NEGATIVE Delfino OrtaCOMPREHENSIVE METABOLIC [id number] 00:00:00* Test Item Value Reference Range Interpretation Comme nts GLUCOSE (test code = 2217) 92 MG/DL BUN (test code = 2208) 20 MG/DL CREATININE (test code = 2214) 1.31 MG/DL eGFR AMER. (test cod e = 94341) 53 ML/MIN/1.73 eGFR NON- AMER. (test code = 60230) 45 ML/MIN/1.73 CALC BUN/CREAT (test code = [...] = 2219) 16 U/L Delfino OrtaCBC W/AUTO [id number] 00:00:00* Test Item Value Reference Range Interpretation [...] code = 1016) (NOTE) Delfino OrtaCOMPREHENSIVE METABOLIC [id number] 00:00:00* Test Item Value Reference Range Interpretation Comme nts GLUCOSE (test code = 2217) 95 MG/DL BUN (test code = 2208) 21 MG/DL CREATININE (test code = 2214) 0.87 MG/DL eGFR AMER. (test cod e = 90043) 87 ML/MIN/1.73 eGFR NON- AMER. (test code = 84800) 75 ML/MIN/1.73 CALC BUN/CREAT (test code = [...] code = 2219) 8 U/L Delfino OrtaURIC [id number] 00:00:00* Test Item Value Reference Range Interpretation Comme nts URIC ACID (test code = 2233) 8.5 MG/DL Delfino OrtaVITAMIN [id number] 00:00:00* Test Item Value Reference Range Interpretation Comme nts VITAMIN B-12 (test code = 2840) 335 PG/ML Delfino OrtaCBC W/AUTO [id number] 00:00:00* Test Item Value Reference Range Interpretation [...] code = 1015) 212 K/UL Delfino OrtaLIPID [id number] 00:00:00* Test Item Value Reference Range Interpretation Comme nts CHOLESTEROL (test code = 2210) 141 MG/DL TRIGLYCERIDES (test code = 2232) 71 MG/DL HDL CHOLESTEROL (test code = 2220) 69 MG/DL CALC LDL CHOL (test code = 2237) 58 MG/DL RISK RATIO LDL/HDL (test cod e = 2238) 0.84 RATIO Delfino OrtaURIC [id number] 00:00:00* Test Item Value Reference Range Interpretation Comme nts URIC ACID (test code = 2233) 8.5 MG/DL Delfino OrtaCOMPREHENSIVE METABOLIC [id number] 00:00:00* Test Item Value Reference Range Interpretation Comme nts GLUCOSE (test code = 2217) 95 MG/DL BUN (test code = 2208) 21 MG/DL CREATININE (test code = 2214) 0.87 MG/DL eGFR AMER. (test cod e = 15526) 87 ML/MIN/1.73 eGFR NON- AMER. (test code = 20886) 75 ML/MIN/1.73 CALC BUN/CREAT (test code = [...] code = 2219) 8 U/L Delfino OrtaURIC [id number] 00:00:00* Test Item Value Reference Range Interpretation Comme [facility] URIC ACID (test code = 2233) 8.5 MG/DL Delfino OrtaVITAMIN [id number] 00:00:00* Test Item Value Reference Range Interpretation Comme [facility] VITAMIN B-12 (test code = 2840) 335 PG/ML Delfino OrtaCBC W/AUTO [id number] 00:00:00* Test Item Value Reference Range Interpretation [...] (test code = 1015) 212 K/UL Delfino OrtaVITAMIN [id number] 00:00:00* Test Item Value Reference Range Interpretation Comme nts VITAMIN B-12 (test code = 2840) 335 PG/ML Delfino OrtaLIPID [id number] 00:00:00* Test Item Value Reference Range Interpretation Comme nts CHOLESTEROL (test code = 2210) 141 MG/DL TRIGLYCERIDES (test code = 2232) 71 MG/DL HDL CHOLESTEROL (test code = 2220) 69 MG/DL CALC LDL CHOL (test code = 2237) 58 MG/DL RISK RATIO LDL/HDL (test cod e = 2238) 0.84 RATIO Delfino OrtaCOMPREHENSIVE METABOLIC [id number] 00:00:00* Test Item Value Reference Range Interpretation Comme nts GLUCOSE (test code = 2217) 95 MG/DL BUN (test code = 2208) 21 MG/DL CREATININE (test code = 2214) 0.87 MG/DL eGFR AMER. (test cod e = 82907) 87 ML/MIN/1.73 eGFR NON- AMER. (test code = 05119) 75 ML/MIN/1.73 CALC BUN/CREAT (test code = [...] code = 2219) 8 U/L Delfino OrtaURIC [id number] 00:00:00* Test Item Value Reference Range Interpretation Comme nts URIC ACID (test code = 2233) 8.5 MG/DL Delfino OrtaVITAMIN [id number] 00:00:00* Test Item Value Reference Range Interpretation Comme nts VITAMIN B-12 (test code = 2840) 335 PG/ML Delfino OrtaCBC W/AUTO [id number] 00:00:00* Test Item Value Reference Range Interpretation [...] code = 1015) 212 K/UL Delfino OrtaLIPID [id number] 00:00:00* Test Item Value Reference Range Interpretation Comme nts CHOLESTEROL (test code = 2210) 141 MG/DL TRIGLYCERIDES (test code = 2232) 71 MG/DL HDL CHOLESTEROL (test code = 2220) 69 MG/DL CALC LDL CHOL (test code = 2237) 58 MG/DL RISK RATIO LDL/HDL (test cod e = 2238) 0.84 RATIO Delfino OrtaCOMPREHENSIVE METABOLIC [id number] 00:00:00* Test Item Value Reference Range Interpretation Comme nts GLUCOSE (test code = 2217) 95 MG/DL BUN (test code = 2208) 21 MG/DL CREATININE (test code = 2214) 0.87 MG/DL eGFR AMER. (test cod e = 96143) 87 ML/MIN/1.73 eGFR NON- AMER. (test code = 22755) 75 ML/MIN/1.73 CALC BUN/CREAT (test code = [...] code = 2219) 8 U/L Delfino OrtaURIC [id number] 00:00:00* Test Item Value Reference Range Interpretation Comme [facility] URIC ACID (test code = 2233) 8.5 MG/DL Delfino OrtaVITAMIN [id number] 00:00:00* Test Item Value Reference Range Interpretation Comme [facility] VITAMIN B-12 (test code = 2840) 335 PG/ML Delfino OrtaCBC W/AUTO [id number] 00:00:00* Test Item Value Reference Range Interpretation [...] code = 1015) 212 K/UL Delfino OrtaLIPID [id number] 00:00:00* Test Item Value Reference Range Interpretation Comme nts CHOLESTEROL (test code = 2210) 141 MG/DL TRIGLYCERIDES (test code = 2232) 71 MG/DL HDL CHOLESTEROL (test code = 2220) 69 MG/DL CALC LDL CHOL (test code = 2237) 58 MG/DL RISK RATIO LDL/HDL (test cod e = 2238) 0.84 RATIO Delfino OrtaCOMPREHENSIVE METABOLIC [id number] 00:00:00* Test Item Value Reference Range Interpretation Comme nts GLUCOSE (test code = 2217) 95 MG/DL BUN (test code = 2208) 21 MG/DL CREATININE (test code = 2214) 0.87 MG/DL eGFR AMER. (test cod e = 06235) 87 ML/MIN/1.73 eGFR NON- AMER. (test code = 94296) 75 ML/MIN/1.73 CALC BUN/CREAT (test code = [...] code = 2219) 8 U/L Delfino OrtaURIC [id number] 00:00:00* Test Item Value Reference Range Interpretation Comme nts URIC ACID (test code = 2233) 8.5 MG/DL Delfino OtraVITAMIN [id number] 00:00:00* Test Item Value Reference Range Interpretation Comme nts VITAMIN B-12 (test code = 2840) 335 PG/ML Delfino OrtaCBC W/AUTO [id number] 00:00:00* Test Item Value Reference Range Interpretation [...] code = 1015) 212 K/UL Delfino Schumacher NewportLIPID [id number] 00:00:00* Test Item Value Reference Range Interpretation Comme nts CHOLESTEROL (test code = 2210) 141 MG/DL TRIGLYCERIDES (test code = 2232) 71 MG/DL HDL CHOLESTEROL (test code = 2220) 69 MG/DL CALC LDL CHOL (test code = 2237) 58 MG/DL RISK RATIO LDL/HDL (test cod e = 2238) 0.84 RATIO Delfino OrtaCOMPREHENSIVE METABOLIC [id number] 00:00:00* Test Item Value Reference Range Interpretation Comme nts GLUCOSE (test code = 2217) 95 MG/DL BUN (test code = 2208) 21 MG/DL CREATININE (test code = 2214) 0.87 MG/DL eGFR AMER. (test cod e = 44306) 87 ML/MIN/1.73 eGFR NON- AMER. (test code = 88540) 75 ML/MIN/1.73 CALC BUN/CREAT (test code = [...] code = 2219) 8 U/L Delfino OrtaURIC [id number] 00:00:00* Test Item Value Reference Range Interpretation Comme nts URIC ACID (test code = 2233) 8.5 MG/DL Delfino OrtaVITAMIN [id number] 00:00:00* Test Item Value Reference Range Interpretation Comme [facility] VITAMIN B-12 (test code = 2840) 335 PG/ML Delfino OrtaCBC W/AUTO [id number] 00:00:00* Test Item Value Reference Range Interpretation [...] code = 1015) 212 K/UL Delfino OrtaLIPID [id number] 00:00:00* Test Item Value Reference Range Interpretation Comme nts CHOLESTEROL (test code = 2210) 141 MG/DL TRIGLYCERIDES (test code = 2232) 71 MG/DL HDL CHOLESTEROL (test code = 2220) 69 MG/DL CALC LDL CHOL (test code = 2237) 58 MG/DL RISK RATIO LDL/HDL (test cod e = 2238) 0.84 RATIO Delfino OrtaCOMPREHENSIVE METABOLIC [id number] 00:00:00* Test Item Value Reference Range Interpretation Comme nts GLUCOSE (test code = 2217) 95 MG/DL BUN (test code = 2208) 21 MG/DL CREATININE (test code = 2214) 0.87 MG/DL eGFR AMER. (test cod e = 49933) 87 ML/MIN/1.73 eGFR NON- AMER. (test code = 79306) 75 ML/MIN/1.73 CALC BUN/CREAT (test code = [...] code = 2219) 8 U/L Delfino OrtaURIC [id number] 00:00:00* Test Item Value Reference Range Interpretation Comme [facility] URIC ACID (test code = 2233) 8.5 MG/DL Delfino OrtaVITAMIN [id number] 00:00:00* Test Item Value Reference Range Interpretation Comme [facility] VITAMIN B-12 (test code = 2840) 335 PG/ML Delfino OrtaCBC W/AUTO [id number] 00:00:00* Test Item Value Reference Range Interpretation [...] code = 1015) 212 K/UL Delfino OrtaLIPID [id number] 00:00:00* Test Item Value Reference Range Interpretation Comme nts CHOLESTEROL (test code = 2210) 141 MG/DL TRIGLYCERIDES (test code = 2232) 71 MG/DL HDL CHOLESTEROL (test code = 2220) 69 MG/DL CALC LDL CHOL (test code = 2237) 58 MG/DL RISK RATIO LDL/HDL (test cod e = 2238) 0.84 RATIO Delfino OrtaCOMPREHENSIVE METABOLIC [id number] 00:00:00* Test Item Value Reference Range Interpretation Comme nts GLUCOSE (test code = 2217) 95 MG/DL BUN (test code = 2208) 21 MG/DL CREATININE (test code = 2214) 0.87 MG/DL eGFR AMER. (test cod e = 78841) 87 ML/MIN/1.73 eGFR NON- AMER. (test code = 14555) 75 ML/MIN/1.73 CALC BUN/CREAT (test code = [...] code = 2219) 8 U/L Delfino OrtaURIC [id number] 00:00:00* Test Item Value Reference Range Interpretation Comme nts URIC ACID (test code = 2233) 8.5 MG/DL Delfino OrtaVITAMIN [id number] 00:00:00* Test Item Value Reference Range Interpretation Comme nts VITAMIN B-12 (test code = 2840) 335 PG/ML Delfino OrtaCBC W/AUTO [id number] 00:00:00* Test Item Value Reference Range Interpretation [...] code = 1015) 212 K/UL Delfino OrtaLIPID [id number] 00:00:00* Test Item Value Reference Range Interpretation Comme nts CHOLESTEROL (test code = 2210) 141 MG/DL TRIGLYCERIDES (test code = 2232) 71 MG/DL HDL CHOLESTEROL (test code = 2220) 69 MG/DL CALC LDL CHOL (test code = 2237) 58 MG/DL RISK RATIO LDL/HDL (test cod e = 2238) 0.84 RATIO Delfino OrtaCOMPREHENSIVE METABOLIC [id number] 00:00:00* Test Item Value Reference Range Interpretation Comme nts GLUCOSE (test code = 2217) 95 MG/DL BUN (test code = 2208) 21 MG/DL CREATININE (test code = 2214) 0.87 MG/DL eGFR AMER. (test cod e = 71778) 87 ML/MIN/1.73 eGFR NON- AMER. (test code = 01750) 75 ML/MIN/1.73 CALC BUN/CREAT (test code = [...] code = 2219) 8 U/L Delfino OrtaURIC [id number] 00:00:00* Test Item Value Reference Range Interpretation Comme [facility] URIC ACID (test code = 2233) 8.5 MG/DL Delfino OrtaVITAMIN [id number] 00:00:00* Test Item Value Reference Range Interpretation Comme [facility] VITAMIN B-12 (test code = 2840) 335 PG/ML Delfino OrtaCBC W/AUTO [id number] 00:00:00* Test Item Value Reference Range Interpretation [...] code = 1015) 212 K/UL Delfino OrtaLIPID [id number] 00:00:00* Test Item Value Reference Range Interpretation Comme nts CHOLESTEROL (test code = 2210) 141 MG/DL TRIGLYCERIDES (test code = 2232) 71 MG/DL HDL CHOLESTEROL (test code = 2220) 69 MG/DL CALC LDL CHOL (test code = 2237) 58 MG/DL RISK RATIO LDL/HDL (test cod e = 2238) 0.84 RATIO Delfino OrtaCOMPREHENSIVE METABOLIC [id number] 00:00:00* Test Item Value Reference Range Interpretation Comme nts GLUCOSE (test code = 2217) 95 MG/DL BUN (test code = 2208) 21 MG/DL CREATININE (test code = 2214) 0.87 MG/DL eGFR AMER. (test cod e = 88507) 87 ML/MIN/1.73 eGFR NON- AMER. (test code = 55161) 75 ML/MIN/1.73 CALC BUN/CREAT (test code = [...] code = 2219) 8 U/L Delfino OrtaURIC [id number] 00:00:00* Test Item Value Reference Range Interpretation Comme nts URIC ACID (test code = 2233) 8.5 MG/DL Delfino OrtaVITAMIN [id number] 00:00:00* Test Item Value Reference Range Interpretation Comme [facility] VITAMIN B-12 (test code = 2840) 335 PG/ML Delfino OrtaCBC W/AUTO [id number] 00:00:00* Test Item Value Reference Range Interpretation [...] code = 1015) 212 K/UL Delfino OrtaLIPID [id number] 00:00:00* Test Item Value Reference Range Interpretation Comme nts CHOLESTEROL (test code = 2210) 141 MG/DL TRIGLYCERIDES (test code = 2232) 71 MG/DL HDL CHOLESTEROL (test code = 2220) 69 MG/DL CALC LDL CHOL (test code = 2237) 58 MG/DL RISK RATIO LDL/HDL (test cod e = 2238) 0.84 RATIO Delfino OrtaCBC W/AUTO [id number] 00:00:00* Test Item Value Reference Range Interpretation [...] (test code = 1015) 212 K/UL LIPID [id number] 00:00:00* Test Item Value Reference Range Interpretation Comme nts CHOLESTEROL (test code = 2210) 141 MG/DL TRIGLYCERIDES (test code = 2232) 71 MG/DL HDL CHOLESTEROL (test code = 2220) 69 MG/DL CALC LDL CHOL (test code = 2237) 58 MG/DL RISK RATIO LDL/HDL (test cod e = 223) 0.84 RATIO COMPREHENSIVE METABOLIC [id number] 00:00:00* Test Item Value Reference Range Interpretation Comme nts GLUCOSE (test code = 2217) 95 MG/DL BUN (test code = 2208) 21 MG/DL CREATININE (test code = 2214) 0.87 MG/DL eGFR AMER. (test cod e = 80450) 87 ML/MIN/1.73 eGFR NON- AMER. (test code = 54917) 75 ML/MIN/1.73 CALC BUN/CREAT (test code = [...] (test code = 2219) 8 U/L URIC [id number] 00:00:00* Test Item Value Reference Range Interpretation Comme nts URIC ACID (test code = 2233) 8.5 MG/DL VITAMIN [id number] 00:00:00* Test Item Value Reference Range Interpretation Comme nts VITAMIN B-12 (test code = 2840) 335 PG/ML CBC W/AUTO [id number] 00:00:00* Test Item Value Reference Range Interpretation [...] (test code = 1015) 212 K/UL LIPID [id number] 00:00:00* Test Item Value Reference Range Interpretation Comme nts CHOLESTEROL (test code = 2210) 141 MG/DL TRIGLYCERIDES (test code = 2232) 71 MG/DL HDL CHOLESTEROL (test code = 2220) 69 MG/DL CALC LDL CHOL (test code = 2237) 58 MG/DL RISK RATIO LDL/HDL (test cod e = 2238) 0.84 RATIO COMPREHENSIVE METABOLIC [id number] 00:00:00* Test Item Value Reference Range Interpretation Comme nts GLUCOSE (test code = 2217) 95 MG/DL BUN (test code = 2208) 21 MG/DL CREATININE (test code = 2214) 0.87 MG/DL eGFR AMER. (test cod e = 21284) 87 ML/MIN/1.73 eGFR NON- AMER. (test code = 96320) 75 ML/MIN/1.73 CALC BUN/CREAT (test code = [...] (test code = 2219) 8 U/L URIC [id number] 00:00:00* Test Item Value Reference Range Interpretation Comme nts URIC ACID (test code = 2233) 8.5 MG/DL VITAMIN [id number] 00:00:00* Test Item Value Reference Range Interpretation Comme nts VITAMIN B-12 (test code = 2840) 335 PG/ML CBC W/AUTO [id number] 00:00:00* Test Item Value Reference Range Interpretation [...] (test code = 1015) 212 K/UL LIPID [id number] 00:00:00* Test Item Value Reference Range Interpretation Comme nts CHOLESTEROL (test code = 2210) 141 MG/DL TRIGLYCERIDES (test code = 2232) 71 MG/DL HDL CHOLESTEROL (test code = 2220) 69 MG/DL CALC LDL CHOL (test code = 2237) 58 MG/DL RISK RATIO LDL/HDL (test cod e = 2238) 0.84 RATIO COMPREHENSIVE METABOLIC [id number] 00:00:00* Test Item Value Reference Range Interpretation Comme nts GLUCOSE (test code = 2217) 95 MG/DL BUN (test code = 2208) 21 MG/DL CREATININE (test code = 2214) 0.87 MG/DL eGFR AMER. (test cod e = 34756) 87 ML/MIN/1.73 eGFR NON- AMER. (test code = 27698) 75 ML/MIN/1.73 CALC BUN/CREAT (test code = [...] (test code = 2219) 8 U/L URIC [id number] 00:00:00* Test Item Value Reference Range Interpretation Comme nts URIC ACID (test code = 2233) 8.5 MG/DL VITAMIN [id number] 00:00:00* Test Item Value Reference Range Interpretation Comme [facility] VITAMIN B-12 (test code = 2840) 335 PG/ML CBC W/AUTO [id number] 00:00:00* Test Item Value Reference Range Interpretation [...] (test code = 1015) 212 K/UL LIPID [id number] 00:00:00* Test Item Value Reference Range Interpretation Comme nts CHOLESTEROL (test code = 2210) 141 MG/DL TRIGLYCERIDES (test code = 2232) 71 MG/DL HDL CHOLESTEROL (test code = 2220) 69 MG/DL CALC LDL CHOL (test code = 2237) 58 MG/DL RISK RATIO LDL/HDL (test cod e = 223) 0.84 RATIO COMPREHENSIVE METABOLIC [id number] 00:00:00* Test Item Value Reference Range Interpretation Comme nts GLUCOSE (test code = 2217) 95 MG/DL BUN (test code = 2208) 21 MG/DL CREATININE (test code = 2214) 0.87 MG/DL eGFR AMER. (test cod e = 73729) 87 ML/MIN/1.73 eGFR NON- AMER. (test code = 94629) 75 ML/MIN/1.73 CALC BUN/CREAT (test code = 2235) 24 RATIO SODIUM (test code = 223) 139 MEQ/L POTASSIUM (test code = 2228) [...] (test code = 2219) 8 U/L URIC [id number] 00:00:00* Test Item Value Reference Range Interpretation Comme nts URIC ACID (test code = 2233) 8.5 MG/DL VITAMIN [id number] 00:00:00* Test Item Value Reference Range Interpretation Comme nts VITAMIN B-12 (test code = 2840) 335 PG/ML CBC W/AUTO [id number] 00:00:00* Test Item Value Reference Range Interpretation [...] code = 1015) 212 K/UL Delfino Schumacher YouCOMPREHENSIVE METABOLIC [id number] 00:00:00* Test Item Value Reference Range Interpretation Comme nts GLUCOSE (test code = 2217) 95 MG/DL BUN (test code = 2208) 21 MG/DL CREATININE (test code = 2214) 0.87 MG/DL eGFR AMER. (test cod e = 17658) 87 ML/MIN/1.73 eGFR NON- AMER. (test code = 43455) 75 ML/MIN/1.73 CALC BUN/CREAT (test code = [...] code = 2219) 8 U/L Delfino OrtaURIC [id number] 00:00:00* Test Item Value Reference Range Interpretation Comme nts URIC ACID (test code = 2233) 8.5 MG/DL Delfino Schumacher YouVITAMIN [id number] 00:00:00* Test Item Value Reference Range Interpretation Comme nts VITAMIN B-12 (test code = 2840) 335 PG/ML Delfinosurinder OrtaCBC W/AUTO [id number] 00:00:00* Test Item Value Reference Range Interpretation [...] code = 1015) 212 K/UL Delfino OrtaLIPID [id number] 00:00:00* Test Item Value Reference Range Interpretation Comme nts CHOLESTEROL (test code = 2210) 141 MG/DL TRIGLYCERIDES (test code = 2232) 71 MG/DL HDL CHOLESTEROL (test code = 2220) 69 MG/DL CALC LDL CHOL (test code = 2237) 58 MG/DL RISK RATIO LDL/HDL (test cod e = 2238) 0.84 RATIO Delfino OrtaCOMPREHENSIVE METABOLIC [id number] 00:00:00* Test Item Value Reference Range Interpretation Comme nts GLUCOSE (test code = 2217) 95 MG/DL BUN (test code = 2208) 21 MG/DL CREATININE (test code = 2214) 0.87 MG/DL eGFR AMER. (test cod e = 72962) 87 ML/MIN/1.73 eGFR NON- AMER. (test code = 98209) 75 ML/MIN/1.73 CALC BUN/CREAT (test code = [...] code = 2219) 8 U/L Delfino OrtaURIC [id number] 00:00:00* Test Item Value Reference Range Interpretation Comme [facility] URIC ACID (test code = 2233) 8.5 MG/DL Delfino OrtaVITAMIN [id number] 00:00:00* Test Item Value Reference Range Interpretation Comme [facility] VITAMIN B-12 (test code = 2840) 335 PG/ML Delfino OrtaCBC W/AUTO [id number] 00:00:00* Test Item Value Reference Range Interpretation [...] code = 1015) 212 K/UL Delfino OrtaLIPID [id number] 00:00:00* Test Item Value Reference Range Interpretation Comme nts CHOLESTEROL (test code = 2210) 141 MG/DL TRIGLYCERIDES (test code = 2232) 71 MG/DL HDL CHOLESTEROL (test code = 2220) 69 MG/DL CALC LDL CHOL (test code = 2237) 58 MG/DL RISK RATIO LDL/HDL (test cod e = 2238) 0.84 RATIO Delfino F AustinLIPID [id number] 00:00:00* Test Item Value Reference Range Interpretation Comme nts CHOLESTEROL (test code = 2210) 141 MG/DL TRIGLYCERIDES (test code = 2232) 71 MG/DL HDL CHOLESTEROL (test code = 2220) 69 MG/DL CALC LDL CHOL (test code = 2237) 58 MG/DL RISK RATIO LDL/HDL (test cod e = 2238) 0.84 RATIO Delfino OrtaCOMPREHENSIVE METABOLIC [id number] 00:00:00* Test Item Value Reference Range Interpretation Comme nts GLUCOSE (test code = 2217) 95 MG/DL BUN (test code = 2208) 21 MG/DL CREATININE (test code = 2214) 0.87 MG/DL eGFR AMER. (test cod e = 05235) 87 ML/MIN/1.73 eGFR NON- AMER. (test code = 70781) 75 ML/MIN/1.73 CALC BUN/CREAT (test code = [...] code = 2219) 8 U/L Delfino OrtaURIC [id number] 00:00:00* Test Item Value Reference Range Interpretation Comme nts URIC ACID (test code = 2233) 8.5 MG/DL Delfino OrtaVITAMIN [id number] 00:00:00* Test Item Value Reference Range Interpretation Comme nts VITAMIN B-12 (test code = 2840) 335 PG/ML Delfino OrtaCBC W/AUTO [id number] 00:00:00* Test Item Value Reference Range Interpretation [...] code = 1015) 212 K/UL Delfino Schumacher NewportLIPID [id number] 00:00:00* Test Item Value Reference Range Interpretation Comme nts CHOLESTEROL (test code = 2210) 141 MG/DL TRIGLYCERIDES (test code = 2232) 71 MG/DL HDL CHOLESTEROL (test code = 2220) 69 MG/DL CALC LDL CHOL (test code = 2237) 58 MG/DL RISK RATIO LDL/HDL (test cod e = 2238) 0.84 RATIO Delfino Schumacher YouCOMPREHENSIVE METABOLIC [id number] 00:00:00* Test Item Value Reference Range Interpretation Comme nts GLUCOSE (test code = 2217) 95 MG/DL BUN (test code = 2208) 21 MG/DL CREATININE (test code = 2214) 0.87 MG/DL eGFR AMER. (test cod e = 71393) 87 ML/MIN/1.73 eGFR NON- AMER. (test code = 53216) 75 ML/MIN/1.73 CALC BUN/CREAT (test code = [...] = 2219) 8 U/L Delfino Schumacher AustinURIC [id number] 00:00:00* Test Item Value Reference Range Interpretation Comme nts URIC ACID (test code = 2233) 8.5 MG/DL Delfino OrtaVITAMIN [id number] 00:00:00* Test Item Value Reference Range Interpretation Comme nts VITAMIN B-12 (test code = 2840) 335 PG/ML Delfino OrtaCOMPREHENSIVE METABOLIC [id number] 00:00:00* Test Item Value Reference Range Interpretation Comme nts GLUCOSE (test code = 2217) 95 MG/DL BUN (test code = 2208) 21 MG/DL CREATININE (test code = 2214) 0.87 MG/DL eGFR AMER. (test cod e = 91598) 87 ML/MIN/1.73 eGFR NON- AMER. (test code = 12656) 75 ML/MIN/1.73 CALC BUN/CREAT (test code = [...] (test code = 2219) 8 U/L Delfino OrtaCBC W/AUTO [id number] 00:00:00* Test Item Value Reference Range Interpretation [...] code = 1015) 212 K/UL Delfino Schumacher AustinLIPID [id number] 00:00:00* Test Item Value Reference Range Interpretation Comme nts CHOLESTEROL (test code = 2210) 141 MG/DL TRIGLYCERIDES (test code = 2232) 71 MG/DL HDL CHOLESTEROL (test code = 2220) 69 MG/DL CALC LDL CHOL (test code = 2237) 58 MG/DL RISK RATIO LDL/HDL (test cod e = 2238) 0.84 RATIO Delfino Schumacher AustinCD4/CD8 LYMPHOCYTE [id number] 00:00:00* Test Item Value Reference Range Interpretation Comme nts ABSOLUTE LYMPHOCYTES (test c ode = 06766) 807 PERUL PERCENT CD4 (test code = 79671) 13.1 % ABSOLUTE CD4 (test code = 95411) 105 PERUL PERCENT CD8 (test code = 97584) 61.6 % ABSOLUTE CD8 (test code = 21277) 497 PERUL CD4/CD8 RATIO (test code = 05609) 0.21 Delfino Schumacher AustinCD4/CD8 LYMPHOCYTE [id number] 00:00:00* Test Item Value Reference Range Interpretation Comme nts ABSOLUTE LYMPHOCYTES (test c ode = 58690) 807 PERUL PERCENT CD4 (test code = 30150) 13.1 % ABSOLUTE CD4 (test code = 28843) 105 PERUL PERCENT CD8 (test code = 48529) 61.6 % ABSOLUTE CD8 (test code = 01957) 497 PERUL CD4/CD8 RATIO (test code = 99384) 0.21 Delfino Schumacher AustinCD4/CD8 LYMPHOCYTE [id number] 00:00:00* Test Item Value Reference Range Interpretation Comme nts ABSOLUTE LYMPHOCYTES (test c ode = 07210) 807 PERUL PERCENT CD4 (test code = 82405) 13.1 % ABSOLUTE CD4 (test code = 80415) 105 PERUL PERCENT CD8 (test code = 24316) 61.6 % ABSOLUTE CD8 (test code = 10732) 497 PERUL CD4/CD8 RATIO (test code = 54803) 0.21 Delfino Schumacher AustinCD4/CD8 LYMPHOCYTE [id number] 00:00:00* Test Item Value Reference Range Interpretation Comme nts ABSOLUTE LYMPHOCYTES (test c ode = 26250) 807 PERUL PERCENT CD4 (test code = 39379) 13.1 % ABSOLUTE CD4 (test code = 80436) 105 PERUL PERCENT CD8 (test code = 14892) 61.6 % ABSOLUTE CD8 (test code = 57655) 497 PERUL CD4/CD8 RATIO (test code = 78340) 0.21 Delfino Schumacher AustinCD4/CD8 LYMPHOCYTE [id number] 00:00:00* Test Item Value Reference Range Interpretation Comme nts ABSOLUTE LYMPHOCYTES (test c ode = 04852) 807 PERUL PERCENT CD4 (test code = 82252) 13.1 % ABSOLUTE CD4 (test code = 14510) 105 PERUL PERCENT CD8 (test code = 49434) 61.6 % ABSOLUTE CD8 (test code = 84070) 497 PERUL CD4/CD8 RATIO (test code = 55189) 0.21 Delfino Schumacher AustinCD4/CD8 LYMPHOCYTE [id number] 00:00:00* Test Item Value Reference Range Interpretation Comme nts ABSOLUTE LYMPHOCYTES (test c ode = 68038) 807 PERUL PERCENT CD4 (test code = 75050) 13.1 % ABSOLUTE CD4 (test code = 80918) 105 PERUL PERCENT CD8 (test code = 82525) 61.6 % ABSOLUTE CD8 (test code = 86388) 497 PERUL CD4/CD8 RATIO (test code = 11171) 0.21 Delfino Schumacher AustinCD4/CD8 LYMPHOCYTE [id number] 00:00:00* Test Item Value Reference Range Interpretation Comme nts ABSOLUTE LYMPHOCYTES (test c ode = 62915) 807 PERUL PERCENT CD4 (test code = 39326) 13.1 % ABSOLUTE CD4 (test code = 80295) 105 PERUL PERCENT CD8 (test code = 08901) 61.6 % ABSOLUTE CD8 (test code = 84016) 497 PERUL CD4/CD8 RATIO (test code = 70944) 0.21 Delfino Schumacher AustinCD4/CD8 LYMPHOCYTE [id number] 00:00:00* Test Item Value Reference Range Interpretation Comme nts ABSOLUTE LYMPHOCYTES (test c ode = 26864) 807 PERUL PERCENT CD4 (test code = 39007) 13.1 % ABSOLUTE CD4 (test code = 40500) 105 PERUL PERCENT CD8 (test code = 58410) 61.6 % ABSOLUTE CD8 (test code = 35182) 497 PERUL CD4/CD8 RATIO (test code = 24491) 0.21 Delfino Schumacher AustinCD4/CD8 LYMPHOCYTE [id number] 00:00:00* Test Item Value Reference Range Interpretation Comme nts ABSOLUTE LYMPHOCYTES (test c ode = 94821) 807 PERUL PERCENT CD4 (test code = 93730) 13.1 % ABSOLUTE CD4 (test code = 82081) 105 PERUL PERCENT CD8 (test code = 03482) 61.6 % ABSOLUTE CD8 (test code = 24482) 497 PERUL CD4/CD8 RATIO (test code = 82254) 0.21 Delfino Schumacher AustinCD4/CD8 LYMPHOCYTE [id number] 00:00:00* Test Item Value Reference Range Interpretation Comme nts ABSOLUTE LYMPHOCYTES (test c ode = 12198) 807 PERUL PERCENT CD4 (test code = 60828) 13.1 % ABSOLUTE CD4 (test code = 55759) 105 PERUL PERCENT CD8 (test code = 49427) 61.6 % ABSOLUTE CD8 (test code = 24437) 497 PERUL CD4/CD8 RATIO (test code = 56900) 0.21 Delfino Schumacher AustinCD4/CD8 LYMPHOCYTE [id number] 00:00:00* Test Item Value Reference Range Interpretation Comme nts ABSOLUTE LYMPHOCYTES (test c ode = 70092) 807 PERUL PERCENT CD4 (test code = 36013) 13.1 % ABSOLUTE CD4 (test code = 85103) 105 PERUL PERCENT CD8 (test code = 74602) 61.6 % ABSOLUTE CD8 (test code = 20834) 497 PERUL CD4/CD8 RATIO (test code = 93425) 0.21 Delfino Schumacher YouCD4/CD8 LYMPHOCYTE [id number] 00:00:00* Test Item Value Reference Range Interpretation Comme nts ABSOLUTE LYMPHOCYTES (test c ode = 06957) 807 PERUL PERCENT CD4 (test code = 83288) 13.1 % ABSOLUTE CD4 (test code = 85856) 105 PERUL PERCENT CD8 (test code = 47744) 61.6 % ABSOLUTE CD8 (test code = 19171) 497 PERUL CD4/CD8 RATIO (test code = 46740) 0.21 CD4/CD8 LYMPHOCYTE [id number] 00:00:00* Test Item Value Reference Range Interpretation Comme nts ABSOLUTE LYMPHOCYTES (test c ode = 17601) 807 PERUL PERCENT CD4 (test code = 40372) 13.1 % ABSOLUTE CD4 (test code = 44063) 105 PERUL PERCENT CD8 (test code = 55822) 61.6 % ABSOLUTE CD8 (test code = 83368) 497 PERUL CD4/CD8 RATIO (test code = 36202) 0.21 CD4/CD8 LYMPHOCYTE [id number] 00:00:00* Test Item Value Reference Range Interpretation Comme nts ABSOLUTE LYMPHOCYTES (test c ode = 51067) 807 PERUL PERCENT CD4 (test code = 63684) 13.1 % ABSOLUTE CD4 (test code = 30691) 105 PERUL PERCENT CD8 (test code = 01505) 61.6 % ABSOLUTE CD8 (test code = 18740) 497 PERUL CD4/CD8 RATIO (test code = 12587) 0.21 CD4/CD8 LYMPHOCYTE [id number] 00:00:00* Test Item Value Reference Range Interpretation Comme nts ABSOLUTE LYMPHOCYTES (test c ode = 49531) 807 PERUL PERCENT CD4 (test code = 70285) 13.1 % ABSOLUTE CD4 (test code = 95594) 105 PERUL PERCENT CD8 (test code = 33083) 61.6 % ABSOLUTE CD8 (test code = 78440) 497 PERUL CD4/CD8 RATIO (test code = 10950) 0.21 CD4/CD8 LYMPHOCYTE [id number] 00:00:00* Test Item Value Reference Range Interpretation Comme nts ABSOLUTE LYMPHOCYTES (test c ode = 45384) 807 PERUL PERCENT CD4 (test code = 06474) 13.1 % ABSOLUTE CD4 (test code = 33567) 105 PERUL PERCENT CD8 (test code = 33263) 61.6 % ABSOLUTE CD8 (test code = 76208) 497 PERUL CD4/CD8 RATIO (test code = 12794) 0.21 Delfino Schumacher AustinCD4/CD8 LYMPHOCYTE [id number] 00:00:00* Test Item Value Reference Range Interpretation Comme nts ABSOLUTE LYMPHOCYTES (test c ode = 56325) 807 PERUL PERCENT CD4 (test code = 19412) 13.1 % ABSOLUTE CD4 (test code = 65225) 105 PERUL PERCENT CD8 (test code = 20340) 61.6 % ABSOLUTE CD8 (test code = 05116) 497 PERUL CD4/CD8 RATIO (test code = 63938) 0.21 Delfino Schumacher AustinCD4/CD8 LYMPHOCYTE [id number] 00:00:00* Test Item Value Reference Range Interpretation Comme nts ABSOLUTE LYMPHOCYTES (test c ode = 50313) 807 PERUL PERCENT CD4 (test code = 09095) 13.1 % ABSOLUTE CD4 (test code = 75404) 105 PERUL PERCENT CD8 (test code = 03543) 61.6 % ABSOLUTE CD8 (test code = 90865) 497 PERUL CD4/CD8 RATIO (test code = 82350) 0.21 Delfino Schumacher AustinCD4/CD8 LYMPHOCYTE [id number] 00:00:00* Test Item Value Reference Range Interpretation Comme nts ABSOLUTE LYMPHOCYTES (test c ode = 64070) 807 PERUL PERCENT CD4 (test code = 52041) 13.1 % ABSOLUTE CD4 (test code = 85922) 105 PERUL PERCENT CD8 (test code = 24985) 61.6 % ABSOLUTE CD8 (test code = 00529) 497 PERUL CD4/CD8 RATIO (test code = 86930) 0.21 Delfino Schumacher NewportVITAMIN [id number] 00:00:00* Test Item Value Reference Range Interpretation Comme nts VITAMIN B-12 (test code = 2840) 358 PG/ML Delfino Schumacher AustinVITAMIN [id number] 00:00:00* Test Item Value Reference Range Interpretation Comme nts VITAMIN B-12 (test code = 2840) 358 PG/ML Delfino Schumacher AustinVITAMIN [id number] 00:00:00* Test Item Value Reference Range Interpretation Comme nts VITAMIN B-12 (test code = 2840) 358 PG/ML Delfino Schumacher AustinVITAMIN [id number] 00:00:00* Test Item Value Reference Range Interpretation Comme nts VITAMIN B-12 (test code = 2840) 358 PG/ML Delfino Schumacher AustinVITAMIN [id number] 00:00:00* Test Item Value Reference Range Interpretation Comme nts VITAMIN B-12 (test code = 2840) 358 PG/ML Delfino Schumacher AustinVITAMIN [id number] 00:00:00* Test Item Value Reference Range Interpretation Comme nts VITAMIN B-12 (test code = 2840) 358 PG/ML Delfino Schumacher AustinVITAMIN [id number] 00:00:00* Test Item Value Reference Range Interpretation Comme nts VITAMIN B-12 (test code = 2840) 358 PG/ML Delfino Schumacher AustinVITAMIN [id number] 00:00:00* Test Item Value Reference Range Interpretation Comme nts VITAMIN B-12 (test code = 2840) 358 PG/ML Delfino Schumacher AustinVITAMIN [id number] 00:00:00* Test Item Value Reference Range Interpretation Comme nts VITAMIN B-12 (test code = 2840) 358 PG/ML Delfino Schumacher AustinVITAMIN [id number] 00:00:00* Test Item Value Reference Range Interpretation Comme nts VITAMIN B-12 (test code = 2840) 358 PG/ML Delfino Schumacher AustinVITAMIN [id number] 00:00:00* Test Item Value Reference Range Interpretation Comme nts VITAMIN B-12 (test code = 2840) 358 PG/ML Delfino Schumacher AustinVITAMIN [id number] 00:00:00* Test Item Value Reference Range Interpretation Comme nts VITAMIN B-12 (test code = 2840) 358 PG/ML VITAMIN [id number] 00:00:00* Test Item Value Reference Range Interpretation Comme nts VITAMIN B-12 (test code = 2840) 358 PG/ML VITAMIN [id number] 00:00:00* Test Item Value Reference Range Interpretation Comme nts VITAMIN B-12 (test code = 2840) 358 PG/ML VITAMIN [id number] 00:00:00* Test Item Value Reference Range Interpretation Comme nts VITAMIN B-12 (test code = 2840) 358 PG/ML VITAMIN [id number] 00:00:00* Test Item Value Reference Range Interpretation Comme nts VITAMIN B-12 (test code = 2840) 358 PG/ML Delfino Schumacher AustinVITAMIN [id number] 00:00:00* Test Item Value Reference Range Interpretation Comme nts VITAMIN B-12 (test code = 2840) 358 PG/ML Delfino Schumacher AustinVITAMIN [id number] 00:00:00* Test Item Value Reference Range Interpretation Comme nts VITAMIN B-12 (test code = 2840) 358 PG/ML Delfino Schumacher AustinVITAMIN [id number] 00:00:00* Test Item Value Reference Range Interpretation Comme nts VITAMIN B-12 (test code = 2840) 358 PG/ML Delfino Schumacher AustinIRON BINDING CAPACITY AND IRON AND % SATURATION [ADDED] 2018-09-09 00:00:00* Test Item Value Reference Range Interpretation Comme nts IRON, SERUM (test code = 2222) 32 UG/DL UNSATURATED IBC (test code = 08965) 326 UG/DL CALC TOTAL IBC (test code = 2077) 358 UG/DL CALC % IRON SAT (test code = 2079) 9 % Delfino Schumacher AustinFERRITIN [ADDED]2018-09-09 00:00:00* Test Item Value Reference Range Interpretation Comme nts FERRITIN (test code = 2075) 19 NG/ML Delfino Schumacher AustinTRANSFERRIN [ADDED]2018-09-09 00:00:00* Test Item Value Reference Range Interpretation Comme nts TRANSFERRIN (test code = 4936) 298 MG/DL Delfino Endy AustinCBC W/AUTO DIFF WITH PLATELETS [ADDED]2018-09-09 00:00:00* [...] (test code = 1016) (NOTE) Delfino Schumacher AustinVITAMIN B 12 AND FOLIC ACID [ADDED]2018-09-09 00:00:00* Test Item Value Reference Range Interpretation Comme nts VITAMIN B-12 (test code = 2840) 166 PG/ML FOLIC ACID (test code = 2695) 9.9 UG/L Delfino Schumacher AustinFERRITIN [ADDED]2018-09-09 00:00:00* Test Item Value Reference Range Interpretation Comme nts FERRITIN (test code = 2075) 19 NG/ML Delfino OrtaIRON BINDING CAPACITY AND IRON AND % SATURATION [ADDED] 2018-09-09 00:00:00* Test Item Value Reference Range Interpretation Comme nts IRON, SERUM (test code = 2222) 32 UG/DL UNSATURATED IBC (test code = 70170) 326 UG/DL CALC TOTAL IBC (test code = 2077) 358 UG/DL CALC % IRON SAT (test code = 2079) 9 % Delfino Schumacher AustinFERRITIN [ADDED]2018-09-09 00:00:00* Test Item Value Reference Range Interpretation Comme nts FERRITIN (test code = 2075) 19 NG/ML Delfino F AustinTRANSFERRIN [ADDED]2018-09-09 00:00:00* Test Item Value Reference Range Interpretation Comme nts TRANSFERRIN (test code = 4936) 298 MG/DL Delfino F AustinTRANSFERRIN [ADDED]2018-09-09 00:00:00* Test Item [...] (test code = 1016) (NOTE) Delfino Endy YouVITAMIN B 12 AND FOLIC ACID [ADDED]2018-09-09 00:00:00* Test Item Value Reference Range Interpretation Comme nts VITAMIN B-12 (test code = 2840) 166 PG/ML FOLIC ACID (test code = 2695) 9.9 UG/L Delfino Endy YouIRON BINDING CAPACITY AND IRON AND % SATURATION [ADDED] 2018-09-09 00:00:00* Test Item Value Reference Range Interpretation Comme nts IRON, SERUM (test code = 2222) 32 UG/DL UNSATURATED IBC (test code = 91469) 326 UG/DL CALC TOTAL IBC (test code = 2077) 358 UG/DL CALC % IRON SAT (test code = 2079) 9 % Delfino Endy YouFERRITIN [ADDED]2018-09-09 00:00:00* Test Item Value Reference Range Interpretation Comme nts FERRITIN (test code = 2075) 19 NG/ML Delfino Endy AustinTRANSFERRIN [ADDED]2018-09-09 00:00:00* Test Item Value Reference Range Interpretation Comme nts TRANSFERRIN (test code = 4936) 298 MG/DL Delfino Endy AustinCBC W/AUTO DIFF WITH PLATELETS [ADDED]2018-09-09 00:00:00* [...] 32 UG/DL UNSATURATED IBC (test code = 56145) 326 UG/DL CALC TOTAL IBC (test code [...] 32 UG/DL UNSATURATED IBC (test code = 14157) 326 UG/DL CALC TOTAL IBC (test code = 2077) 358 UG/DL CALC % IRON SAT (test code = 2079) 9 % Delfino Endy YouFERRITIN [ADDED]2018-09-09 00:00:00* Test Item Value Reference [...] 32 UG/DL UNSATURATED IBC (test code = 17678) 326 UG/DL CALC TOTAL IBC (test code = 2077) 358 UG/DL CALC % IRON SAT (test code = 2079) 9 % Delfino Endy YouFERRITIN [ADDED]2018-09-09 00:00:00* Test Item Value Reference Range Interpretation Comme nts FERRITIN (test code = 2075) 19 NG/ML Delfino Endy YouTRANSFERRIN [ADDED]2018-09-09 00:00:00* Test Item Value Reference Range [...] 32 UG/DL UNSATURATED IBC (test code = 43368) 326 UG/DL CALC TOTAL IBC (test code [...] 32 UG/DL UNSATURATED IBC (test code = 98555) 326 UG/DL CALC TOTAL IBC (test code [...] code = 2695) 9.9 UG/L Delfino Schumacher YouIRON BINDING CAPACITY AND IRON AND % SATURATION [ADDED] 2018-09-09 00:00:00* Test Item Value Reference Range Interpretation Comme nts IRON, SERUM (test code = 2222) 32 UG/DL UNSATURATED IBC (test code = 92744) 326 UG/DL CALC TOTAL IBC (test code = 2077) 358 UG/DL CALC % IRON SAT (test code = 2079) 9 % Delfino Schumacher YouFERRITIN [ADDED]2018-09-09 00:00:00* Test Item Value Reference Range Interpretation Comme nts FERRITIN (test code = 2075) 19 NG/ML Delfino F YouTRANSFERRIN [ADDED]2018-09-09 00:00:00* Test Item Value Reference Range Interpretation Comme nts TRANSFERRIN (test code = 4936) 298 MG/DL Delfino Endy YouCBC W/AUTO DIFF WITH PLATELETS [ADDED]2018-09-09 00:00:00* Test [...] 32 UG/DL UNSATURATED IBC (test code = 88007) 326 UG/DL CALC TOTAL IBC (test code = 2077) 358 UG/DL CALC % IRON SAT (test code = 2079) 9 % Delfino Schumacher AustinFERRITIN [ADDED]2018-09-09 00:00:00* Test Item Value Reference [...] 32 UG/DL UNSATURATED IBC (test code = 86055) 326 UG/DL CALC TOTAL IBC (test code [...] 32 UG/DL UNSATURATED IBC (test code = 31190) 326 UG/DL CALC TOTAL IBC (test code [...] 32 UG/DL UNSATURATED IBC (test code = 34204) 326 UG/DL CALC TOTAL IBC (test code [...] 32 UG/DL UNSATURATED IBC (test code = 11998) 326 UG/DL CALC TOTAL IBC (test code = 7) 358 UG/DL CALC % IRON SAT (test code = 9) 9 % FERRITIN [ADDED]2018-09-09 00:00:00* Test Item Value Reference Range Interpretation Comme nts FERRITIN (test code = 5) 19 NG/ML TRANSFERRIN [ADDED]2018-09-09 00:00:00* Test Item [...] 32 UG/DL UNSATURATED IBC (test code = 82112) 326 UG/DL CALC TOTAL IBC (test code = 7) 358 UG/DL CALC % IRON SAT (test code = 9) 9 % Delfino F AustinFERRITIN [ADDED]2018-09-09 00:00:00* Test Item Value Reference Range Interpretation Comme nts FERRITIN (test code = 2075) 19 NG/ML Delfino F AustinTRANSFERRIN [ADDED]2018-09-09 00:00:00* [...] 32 UG/DL UNSATURATED IBC (test code = 03486) 326 UG/DL CALC TOTAL IBC (test code = 2077) 358 UG/DL CALC % IRON SAT (test code = 2079) 9 % Delfino OrtaFERRITIN [ADDED]2018-09-09 00:00:00* Test Item Value Reference Range Interpretation Comme nts FERRITIN (test code = 2075) 19 NG/ML Delfino Schumacher AustinTRANSFERRIN [ADDED]2018-09-09 00:00:00* Test Item Value Reference Range Interpretation Comme nts TRANSFERRIN (test code = 4936) 298 MG/DL Delfino Endy YouCBC W/AUTO DIFF WITH PLATELETS [ADDED]2018-09-09 00:00:00* Test [...] (test code = 1016) (NOTE) Delfino Endy YouVITAMIN B 12 AND FOLIC ACID [ADDED]2018-09-09 00:00:00* Test Item Value Reference Range Interpretation Comme nts VITAMIN B-12 (test code = 2840) 166 PG/ML FOLIC ACID (test code = 2695) 9.9 UG/L Delfino Endy YouIRON BINDING CAPACITY AND IRON AND % SATURATION [ADDED] 2018-09-09 00:00:00* Test Item Value Reference Range Interpretation Comme nts IRON, SERUM (test code = 2222) 32 UG/DL UNSATURATED IBC (test code = 06703) 326 UG/DL CALC TOTAL IBC (test code = 7) 358 UG/DL CALC % IRON SAT (test code = 2079) 9 % Delfino Endy YouFERRITIN [ADDED]2018-09-09 00:00:00* Test Item Value Reference Range Interpretation Comme nts FERRITIN (test code = 2075) 19 NG/ML Delfino Endy AustinTRANSFERRIN [ADDED]2018-09-09 00:00:00* Test Item Value Reference [...] (test code = 2695) 9.9 UG/L Delfino OrtaVITAMIN B 12 AND FOLIC ACID [...] 32 UG/DL UNSATURATED IBC (test code = 70864) 326 UG/DL CALC TOTAL IBC (test code = 2077) 358 UG/DL CALC % IRON SAT (test code = 2079) 9 % Delfino OrtaFERRITIN [ADDED]2018-09-09 00:00:00* Test Item Value Reference Range Interpretation Comme nts FERRITIN (test code = 2075) 19 NG/ML Delfino OrtaTRANSFERRIN [ADDED]2018-09-09 00:00:00* Test Item Value Reference Range Interpretation Comme nts TRANSFERRIN (test code = 4936) 298 MG/DL Delfino Endy YouCBC W/AUTO DIFF WITH PLATELETS [ADDED]2018-09-09 00:00:00* Test [...] (test code = 1016) (NOTE) Delfino Endy YouIRON BINDING CAPACITY AND IRON AND % SATURATION [ADDED] 2018-09-09 00:00:00* Test Item Value Reference Range Interpretation Comme nts IRON, SERUM (test code = 2222) 32 UG/DL UNSATURATED IBC (test code = 45192) 326 UG/DL CALC TOTAL IBC (test code = 2077) 358 UG/DL CALC % IRON SAT (test code = 2079) 9 % Delfino Endy YouVITAMIN B 12 AND FOLIC ACID [ADDED]2018-09-09 00:00:00* Test Item Value Reference Range Interpretation Comme nts VITAMIN B-12 (test code = 2840) 166 PG/ML FOLIC ACID (test code = 2695) 9.9 UG/L Delfino OrtaCOMPREHENSIVE METABOLIC [id number] 00:00:00* Test Item Value Reference Range Interpretation Comme nts GLUCOSE (test code = 2217) 84 MG/DL BUN (test code = 2208) 12 MG/DL CREATININE (test code = 2214) 1.02 MG/DL eGFR AMER. (test cod e = 70264) 72 ML/MIN/1.73 eGFR NON- AMER. (test code = 69131) 62 ML/MIN/1.73 CALC BUN/CREAT (test code = [...] = 2219) 9 U/L Delfino Schumacher AustinURIC [id number] 00:00:00* Test Item Value Reference Range Interpretation Comme nts URIC ACID (test code = 2233) 7.8 MG/DL Delfino Schumacher NewportCOMPREHENSIVE METABOLIC [id number] 00:00:00* Test Item Value Reference Range Interpretation Comme nts GLUCOSE (test code = 2217) 84 MG/DL BUN (test code = 2208) 12 MG/DL CREATININE (test code = 2214) 1.02 MG/DL eGFR AMER. (test cod e = 03175) 72 ML/MIN/1.73 eGFR NON- AMER. (test code = 31843) 62 ML/MIN/1.73 CALC BUN/CREAT (test code = [...] ALT (test code = 2219) 9 U/L [facility]nio [facility] W/AUTO [id number] 00:00:00* Test Item Value Reference Range Interpretation [...] = 1015) 230 K/UL Delfino OrtaCOMPREHENSIVE METABOLIC [id number] 00:00:00* Test Item Value Reference Range Interpretation Comme nts GLUCOSE (test code = 2217) 84 MG/DL BUN (test code = 2208) 12 MG/DL CREATININE (test code = 2214) 1.02 MG/DL eGFR AMER. (test cod e = 95932) 72 ML/MIN/1.73 eGFR NON- AMER. (test code = 32326) 62 ML/MIN/1.73 CALC BUN/CREAT (test code = [...] code = 2219) 9 U/L Delfino OrtaURIC [id number] 00:00:00* Test Item Value Reference Range Interpretation Comme nts URIC ACID (test code = 2233) 7.8 MG/DL Delfino OrtaCBC W/AUTO [id number] 00:00:00* Test Item Value Reference Range Interpretation [...] = 1015) 230 K/UL Delfino OrtaCOMPREHENSIVE METABOLIC [id number] 00:00:00* Test Item Value Reference Range Interpretation Comme nts GLUCOSE (test code = 2217) 84 MG/DL BUN (test code = 2208) 12 MG/DL CREATININE (test code = 2214) 1.02 MG/DL eGFR AMER. (test cod e = 01190) 72 ML/MIN/1.73 eGFR NON- AMER. (test code = 69580) 62 ML/MIN/1.73 CALC BUN/CREAT (test code = [...] code = 2219) 9 U/L Delfino OrtaURIC [id number] 00:00:00* Test Item Value Reference Range Interpretation Comme nts URIC ACID (test code = 2233) 7.8 MG/DL Delfino OrtaCBC W/AUTO [id number] 00:00:00* Test Item Value Reference Range Interpretation [...] 1015) 230 K/UL Delfino Schumacher YouCOMPREHENSIVE METABOLIC [id number] 00:00:00* Test Item Value Reference Range Interpretation Comme nts GLUCOSE (test code = 2217) 84 MG/DL BUN (test code = 2208) 12 MG/DL CREATININE (test code = 2214) 1.02 MG/DL eGFR AMER. (test cod e = 09313) 72 ML/MIN/1.73 eGFR NON- AMER. (test code = 67911) 62 ML/MIN/1.73 CALC BUN/CREAT (test code = [...] code = 2219) 9 U/L Delfino OrtaURIC [id number] 00:00:00* Test Item Value Reference Range Interpretation Comme nts URIC ACID (test code = 2233) 7.8 MG/DL Delfino OrtaCBC W/AUTO [id number] 00:00:00* Test Item Value Reference Range Interpretation [...] = 1015) 230 K/UL Delfino OrtaCOMPREHENSIVE METABOLIC [id number] 00:00:00* Test Item Value Reference Range Interpretation Comme nts GLUCOSE (test code = 2217) 84 MG/DL BUN (test code = 2208) 12 MG/DL CREATININE (test code = 2214) 1.02 MG/DL eGFR AMER. (test cod e = 05543) 72 ML/MIN/1.73 eGFR NON- AMER. (test code = 21837) 62 ML/MIN/1.73 CALC BUN/CREAT (test code = [...] code = 2219) 9 U/L Delfino OrtaURIC [id number] 00:00:00* Test Item Value Reference Range Interpretation Comme nts URIC ACID (test code = 2233) 7.8 MG/DL Delfino OrtaCBC W/AUTO [id number] 00:00:00* Test Item Value Reference Range Interpretation [...] = 1015) 230 K/UL Delfino OrtaCOMPREHENSIVE METABOLIC [id number] 00:00:00* Test Item Value Reference Range Interpretation Comme nts GLUCOSE (test code = 2217) 84 MG/DL BUN (test code = 2208) 12 MG/DL CREATININE (test code = 2214) 1.02 MG/DL eGFR AMER. (test cod e = 31067) 72 ML/MIN/1.73 eGFR NON- AMER. (test code = 31134) 62 ML/MIN/1.73 CALC BUN/CREAT (test code = [...] code = 2219) 9 U/L Delfino Schumacher YouURIC [id number] 00:00:00* Test Item Value Reference Range Interpretation Comme nts URIC ACID (test code = 2233) 7.8 MG/DL Delfino Endy YouCBC W/AUTO [id number] 00:00:00* Test Item Value Reference Range Interpretation [...] = 1015) 230 K/UL Delfino OrtaCOMPREHENSIVE METABOLIC [id number] 00:00:00* Test Item Value Reference Range Interpretation Comme nts GLUCOSE (test code = 2217) 84 MG/DL BUN (test code = 2208) 12 MG/DL CREATININE (test code = 2214) 1.02 MG/DL eGFR AMER. (test cod e = 11270) 72 ML/MIN/1.73 eGFR NON- AMER. (test code = 38310) 62 ML/MIN/1.73 CALC BUN/CREAT (test code = [...] code = 2219) 9 U/L Delfino OrtaURIC [id number] 00:00:00* Test Item Value Reference Range Interpretation Comme nts URIC ACID (test code = 2233) 7.8 MG/DL Delfino OrtaCBC W/AUTO [id number] 00:00:00* Test Item Value Reference Range Interpretation [...] (test code = 1015) 230 K/UL Delfino Schmuacher YouCOMPREHENSIVE METABOLIC [id number] 00:00:00* Test Item Value Reference Range Interpretation Comme nts GLUCOSE (test code = 2217) 84 MG/DL BUN (test code = 2208) 12 MG/DL CREATININE (test code = 2214) 1.02 MG/DL eGFR AMER. (test cod e = 26376) 72 ML/MIN/1.73 eGFR NON- AMER. (test code = 74678) 62 ML/MIN/1.73 CALC BUN/CREAT (test code = [...] (test code = 2219) 9 U/L Delfino F YouURIC [id number] 00:00:00* Test Item Value Reference Range Interpretation Comme nts URIC ACID (test code = 2233) 7.8 MG/DL Delfino OrtaCBC W/AUTO [id number] 00:00:00* Test Item Value Reference Range Interpretation [...] (test code = 1015) 230 K/UL Delfino Endy YouCOMPREHENSIVE METABOLIC [id number] 00:00:00* Test Item Value Reference Range Interpretation Comme nts GLUCOSE (test code = 2217) 84 MG/DL BUN (test code = 2208) 12 MG/DL CREATININE (test code = 2214) 1.02 MG/DL eGFR AMER. (test cod e = 98604) 72 ML/MIN/1.73 eGFR NON- AMER. (test code = 10858) 62 ML/MIN/1.73 CALC BUN/CREAT (test code = [...] = 2219) 9 U/L Delfino Schumacher AustinURIC [id number] 00:00:00* Test Item Value Reference Range Interpretation Comme nts URIC ACID (test code = 2233) 7.8 MG/DL Delfino F AustinCBC W/AUTO [id number] 00:00:00* Test Item Value Reference Range Interpretation [...] = 1015) 230 K/UL Delfino OrtaCOMPREHENSIVE METABOLIC [id number] 00:00:00* Test Item Value Reference Range Interpretation Comme nts GLUCOSE (test code = 2217) 84 MG/DL BUN (test code = 2208) 12 MG/DL CREATININE (test code = 2214) 1.02 MG/DL eGFR AMER. (test cod e = 67226) 72 ML/MIN/1.73 eGFR NON- AMER. (test code = 92795) 62 ML/MIN/1.73 CALC BUN/CREAT (test code = [...] = 2219) 9 U/L Delfino Schumacher AustinURIC [id number] 00:00:00* Test Item Value Reference Range Interpretation Comme nts URIC ACID (test code = 2233) 7.8 MG/DL Delfino OrtaURIC [id number] 00:00:00* Test Item Value Reference Range Interpretation Comme nts URIC ACID (test code = 2233) 7.8 MG/DL CBC W/AUTO [id number] 00:00:00* Test Item Value Reference Range Interpretation [...] code = 1015) 230 K/UL COMPREHENSIVE METABOLIC [id number] 00:00:00* Test Item Value Reference Range Interpretation Comme nts GLUCOSE (test code = 2217) 84 MG/DL BUN (test code = 2208) 12 MG/DL CREATININE (test code = 2214) 1.02 MG/DL eGFR AMER. (test cod e = 80752) 72 ML/MIN/1.73 eGFR NON- AMER. (test code = 60961) 62 ML/MIN/1.73 CALC BUN/CREAT (test code = [...] (test code = 2219) 9 U/L URIC [id number] 00:00:00* Test Item Value Reference Range Interpretation Comme nts URIC ACID (test code = 2233) 7.8 MG/DL CBC W/AUTO [id number] 00:00:00* Test Item Value Reference Range Interpretation [...] code = 1015) 230 K/UL COMPREHENSIVE METABOLIC [id number] 00:00:00* Test Item Value Reference Range Interpretation Comme nts GLUCOSE (test code = 2217) 84 MG/DL BUN (test code = 2208) 12 MG/DL CREATININE (test code = 2214) 1.02 MG/DL eGFR AMER. (test cod e = 60240) 72 ML/MIN/1.73 eGFR NON- AMER. (test code = 96261) 62 ML/MIN/1.73 CALC BUN/CREAT (test code = [...] (test code = 2219) 9 U/L URIC [id number] 00:00:00* Test Item Value Reference Range Interpretation Comme nts URIC ACID (test code = 2233) 7.8 MG/DL CBC W/AUTO [id number] 00:00:00* Test Item Value Reference Range Interpretation [...] code = 1015) 230 K/UL COMPREHENSIVE METABOLIC [id number] 00:00:00* Test Item Value Reference Range Interpretation Comme nts GLUCOSE (test code = 2217) 84 MG/DL BUN (test code = 2208) 12 MG/DL CREATININE (test code = 2214) 1.02 MG/DL eGFR AMER. (test cod e = 13416) 72 ML/MIN/1.73 eGFR NON- AMER. (test code = 23562) 62 ML/MIN/1.73 CALC BUN/CREAT (test code = [...] (test code = 2219) 9 U/L URIC [id number] 00:00:00* Test Item Value Reference Range Interpretation Comme nts URIC ACID (test code = 2233) 7.8 MG/DL CBC W/AUTO [id number] 00:00:00* Test Item Value Reference Range Interpretation [...] code = 1015) 230 K/UL COMPREHENSIVE METABOLIC [id number] 00:00:00* Test Item Value Reference Range Interpretation Comme nts GLUCOSE (test code = 2217) 84 MG/DL BUN (test code = 2208) 12 MG/DL CREATININE (test code = 2214) 1.02 MG/DL eGFR AMER. (test cod e = 14313) 72 ML/MIN/1.73 eGFR NON- AMER. (test code = 48918) 62 ML/MIN/1.73 CALC BUN/CREAT (test code = [...] code = 2219) 9 U/L CBC W/AUTO [id number] 00:00:00* Test Item Value Reference Range Interpretation [...] = 1015) 230 K/UL Delfino OrtaCOMPREHENSIVE METABOLIC [id number] 00:00:00* Test Item Value Reference Range Interpretation Comme nts GLUCOSE (test code = 2217) 84 MG/DL BUN (test code = 2208) 12 MG/DL CREATININE (test code = 2214) 1.02 MG/DL eGFR AMER. (test cod e = 56654) 72 ML/MIN/1.73 eGFR NON- AMER. (test code = 50545) 62 ML/MIN/1.73 CALC BUN/CREAT (test code = [...] code = 2219) 9 U/L Delfino OrtaURIC [id number] 00:00:00* Test Item Value Reference Range Interpretation Comme nts URIC ACID (test code = 2233) 7.8 MG/DL Delfino OrtaCBC W/AUTO [id number] 00:00:00* Test Item Value Reference Range Interpretation [...] = 1015) 230 K/UL Delfino OrtaCOMPREHENSIVE METABOLIC [id number] 00:00:00* Test Item Value Reference Range Interpretation Comme nts GLUCOSE (test code = 2217) 84 MG/DL BUN (test code = 2208) 12 MG/DL CREATININE (test code = 2214) 1.02 MG/DL eGFR AMER. (test cod e = 74658) 72 ML/MIN/1.73 eGFR NON- AMER. (test code = 46287) 62 ML/MIN/1.73 CALC BUN/CREAT (test code = [...] code = 2219) 9 U/L Delfino OrtaURIC [id number] 00:00:00* Test Item Value Reference Range Interpretation Comme [facility] URIC ACID (test code = 2233) 7.8 MG/DL Delfino OrtaCBC W/AUTO [id number] 00:00:00* Test Item Value Reference Range Interpretation [...] (test code = 1015) 230 K/UL Delfino OrtaURIC [id number] 00:00:00* Test Item Value Reference Range Interpretation Comme nts URIC ACID (test code = 2233) 7.8 MG/DL Delfino OrtaCBC W/AUTO [id number] 00:00:00* Test Item Value Reference Range Interpretation [...] = 1015) 230 K/UL Delfino OrtaCOMPREHENSIVE METABOLIC [id number] 00:00:00* Test Item Value Reference Range Interpretation Comme nts GLUCOSE (test code = 2217) 84 MG/DL BUN (test code = 2208) 12 MG/DL CREATININE (test code = 2214) 1.02 MG/DL eGFR AMER. (test cod e = 49129) 72 ML/MIN/1.73 eGFR NON- AMER. (test code = 31849) 62 ML/MIN/1.73 CALC BUN/CREAT (test code = [...] code = 2219) 9 U/L Delfino OrtaURIC [id number] 00:00:00* Test Item Value Reference Range Interpretation Comme nts URIC ACID (test code = 2233) 7.8 MG/DL Delfino OrtaCBC W/AUTO [id number] 00:00:00* Test Item Value Reference Range Interpretation [...] = 1015) 230 K/UL Delfino OrtaCOMPREHENSIVE METABOLIC [id number] 00:00:00* Test Item Value Reference Range Interpretation Comme nts GLUCOSE (test code = 2217) 84 MG/DL BUN (test code = 2208) 12 MG/DL CREATININE (test code = 2214) 1.02 MG/DL eGFR AMER. (test cod e = 24643) 72 ML/MIN/1.73 eGFR NON- AMER. (test code = 79020) 62 ML/MIN/1.73 CALC BUN/CREAT (test code = [...] code = 2219) 9 U/L Delfino OrtaURIC [id number] 00:00:00* Test Item Value Reference Range Interpretation Comme nts URIC ACID (test code = 2233) 7.8 MG/DL Delfino OrtaCBC W/AUTO [id number] 00:00:00* Test Item Value Reference Range Interpretation [...] = 1015) 230 K/UL Delfino OrtaCOMPREHENSIVE METABOLIC [id number] 00:00:00* Test Item Value Reference Range Interpretation Comme nts GLUCOSE (test code = 2217) 93 MG/DL BUN (test code = 2208) 20 MG/DL CREATININE (test code = 2214) 1.18 MG/DL eGFR AMER. (test cod e = 26802) 61 ML/MIN/1.73 eGFR NON- AMER. (test code = 85367) 52 ML/MIN/1.73 CALC BUN/CREAT (test code = [...] = 2219) 15 U/L Delfino OrtaCBC W/AUTO [id number] 00:00:00* Test Item Value Reference Range Interpretation [...] (test code = 1015) 317 K/UL Delfino OratLIPID [id number] 00:00:00* Test Item Value Reference Range Interpretation Comme nts CHOLESTEROL (test code = 2210) 215 MG/DL TRIGLYCERIDES (test code = 2232) 61 MG/DL HDL CHOLESTEROL (test code = 2220) 93 MG/DL CALC LDL CHOL (test code = 2237) 110 MG/DL RISK RATIO LDL/HDL (test cod e = 2238) 1.18 RATIO Delfino OrtaCOMPREHENSIVE METABOLIC [id number] 00:00:00* Test Item Value Reference Range Interpretation Comme nts GLUCOSE (test code = 2217) 93 MG/DL BUN (test code = 2208) 20 MG/DL CREATININE (test code = 2214) 1.18 MG/DL eGFR AMER. (test cod e = 22359) 61 ML/MIN/1.73 eGFR NON- AMER. (test code = 87926) 52 ML/MIN/1.73 CALC BUN/CREAT (test code = [...] (test code = 2219) 15 U/L [facility]/AUTO [id number] 00:00:00* Test Item Value Reference Range Interpretation [...] code = 1015) 317 K/UL Delfino OrtaLIPID [id number] 00:00:00* Test Item Value Reference Range Interpretation Comme nts CHOLESTEROL (test code = 2210) 215 MG/DL TRIGLYCERIDES (test code = 2232) 61 MG/DL HDL CHOLESTEROL (test code = 2220) 93 MG/DL CALC LDL CHOL (test code = 2237) 110 MG/DL RISK RATIO LDL/HDL (test cod e = 2238) 1.18 RATIO Delfino OrtaCOMPREHENSIVE METABOLIC [id number] 00:00:00* Test Item Value Reference Range Interpretation Comme nts GLUCOSE (test code = 2217) 93 MG/DL BUN (test code = 2208) 20 MG/DL CREATININE (test code = 2214) 1.18 MG/DL eGFR AMER. (test cod e = 89031) 61 ML/MIN/1.73 eGFR NON- AMER. (test code = 55053) 52 ML/MIN/1.73 CALC BUN/CREAT (test code = [...] = 2219) 15 U/L Delfino OrtaCBC W/AUTO [id number] 00:00:00* Test Item Value Reference Range Interpretation [...] code = 1015) 317 K/UL Delfino OrtaLIPID [id number] 00:00:00* Test Item Value Reference Range Interpretation Comme nts CHOLESTEROL (test code = 2210) 215 MG/DL TRIGLYCERIDES (test code = 2232) 61 MG/DL HDL CHOLESTEROL (test code = 2220) 93 MG/DL CALC LDL CHOL (test code = 2237) 110 MG/DL RISK RATIO LDL/HDL (test cod e = 2238) 1.18 RATIO Delfino OrtaCOMPREHENSIVE METABOLIC [id number] 00:00:00* Test Item Value Reference Range Interpretation Comme nts GLUCOSE (test code = 2217) 93 MG/DL BUN (test code = 2208) 20 MG/DL CREATININE (test code = 2214) 1.18 MG/DL eGFR AMER. (test cod e = 62705) 61 ML/MIN/1.73 eGFR NON- AMER. (test code = 65218) 52 ML/MIN/1.73 CALC BUN/CREAT (test code = [...] = 2219) 15 U/L Delfino OrtaCBC W/AUTO [id number] 00:00:00* Test Item Value Reference Range Interpretation [...] code = 1015) 317 K/UL Delfino OrtaLIPID [id number] 00:00:00* Test Item Value Reference Range Interpretation Comme nts CHOLESTEROL (test code = 2210) 215 MG/DL TRIGLYCERIDES (test code = 2232) 61 MG/DL HDL CHOLESTEROL (test code = 2220) 93 MG/DL CALC LDL CHOL (test code = 2237) 110 MG/DL RISK RATIO LDL/HDL (test cod e = 2238) 1.18 RATIO Delfino OrtaCOMPREHENSIVE METABOLIC [id number] 00:00:00* Test Item Value Reference Range Interpretation Comme nts GLUCOSE (test code = 2217) 93 MG/DL BUN (test code = 2208) 20 MG/DL CREATININE (test code = 2214) 1.18 MG/DL eGFR AMER. (test cod e = 44701) 61 ML/MIN/1.73 eGFR NON- AMER. (test code = 82525) 52 ML/MIN/1.73 CALC BUN/CREAT (test code = [...] = 2219) 15 U/L Delfino OrtaCBC W/AUTO [id number] 00:00:00* Test Item Value Reference Range Interpretation [...] (test code = 1015) 317 K/UL Delfino rOtaLIPID [id number] 00:00:00* Test Item Value Reference Range Interpretation Comme nts CHOLESTEROL (test code = 2210) 215 MG/DL TRIGLYCERIDES (test code = 2232) 61 MG/DL HDL CHOLESTEROL (test code = 2220) 93 MG/DL CALC LDL CHOL (test code = 2237) 110 MG/DL RISK RATIO LDL/HDL (test cod e = 2238) 1.18 RATIO Delfino OrtaCOMPREHENSIVE METABOLIC [id number] 00:00:00* Test Item Value Reference Range Interpretation Comme nts GLUCOSE (test code = 2217) 93 MG/DL BUN (test code = 2208) 20 MG/DL CREATININE (test code = 2214) 1.18 MG/DL eGFR AMER. (test cod e = 59866) 61 ML/MIN/1.73 eGFR NON- AMER. (test code = 52139) 52 ML/MIN/1.73 CALC BUN/CREAT (test code = [...] = 2219) 15 U/L Delfino OrtaCBC W/AUTO [id number] 00:00:00* Test Item Value Reference Range Interpretation [...] code = 1015) 317 K/UL Delfino OrtaLIPID [id number] 00:00:00* Test Item Value Reference Range Interpretation Comme nts CHOLESTEROL (test code = 2210) 215 MG/DL TRIGLYCERIDES (test code = 2232) 61 MG/DL HDL CHOLESTEROL (test code = 2220) 93 MG/DL CALC LDL CHOL (test code = 2237) 110 MG/DL RISK RATIO LDL/HDL (test cod e = 2238) 1.18 RATIO Delfino OrtaCOMPREHENSIVE METABOLIC [id number] 00:00:00* Test Item Value Reference Range Interpretation Comme nts GLUCOSE (test code = 2217) 93 MG/DL BUN (test code = 2208) 20 MG/DL CREATININE (test code = 2214) 1.18 MG/DL eGFR AMER. (test cod e = 21788) 61 ML/MIN/1.73 eGFR NON- AMER. (test code = 54884) 52 ML/MIN/1.73 CALC BUN/CREAT (test code = [...] 2219) 15 U/L Delfino Schumacher YouCBC W/AUTO [id number] 00:00:00* Test Item Value Reference Range Interpretation [...] code = 1015) 317 K/UL Delfino OrtaLIPID [id number] 00:00:00* Test Item Value Reference Range Interpretation Comme nts CHOLESTEROL (test code = 2210) 215 MG/DL TRIGLYCERIDES (test code = 2232) 61 MG/DL HDL CHOLESTEROL (test code = 2220) 93 MG/DL CALC LDL CHOL (test code = 2237) 110 MG/DL RISK RATIO LDL/HDL (test cod e = 2238) 1.18 RATIO Delfino OrtaCOMPREHENSIVE METABOLIC [id number] 00:00:00* Test Item Value Reference Range Interpretation Comme nts GLUCOSE (test code = 2217) 93 MG/DL BUN (test code = 2208) 20 MG/DL CREATININE (test code = 2214) 1.18 MG/DL eGFR AMER. (test cod e = 55863) 61 ML/MIN/1.73 eGFR NON- AMER. (test code = 97044) 52 ML/MIN/1.73 CALC BUN/CREAT (test code = [...] = 2219) 15 U/L Delfino OrtaCBC W/AUTO [id number] 00:00:00* Test Item Value Reference Range Interpretation [...] code = 1015) 317 K/UL Delfino OrtaLIPID [id number] 00:00:00* Test Item Value Reference Range Interpretation Comme nts CHOLESTEROL (test code = 2210) 215 MG/DL TRIGLYCERIDES (test code = 2232) 61 MG/DL HDL CHOLESTEROL (test code = 2220) 93 MG/DL CALC LDL CHOL (test code = 2237) 110 MG/DL RISK RATIO LDL/HDL (test cod e = 2238) 1.18 RATIO Delfino OrtaCOMPREHENSIVE METABOLIC [id number] 00:00:00* Test Item Value Reference Range Interpretation Comme nts GLUCOSE (test code = 2217) 93 MG/DL BUN (test code = 2208) 20 MG/DL CREATININE (test code = 2214) 1.18 MG/DL eGFR AMER. (test cod e = 40308) 61 ML/MIN/1.73 eGFR NON- AMER. (test code = 87713) 52 ML/MIN/1.73 CALC BUN/CREAT (test code = [...] = 2219) 15 U/L Delfino OrtaCBC W/AUTO [id number] 00:00:00* Test Item Value Reference Range Interpretation [...] code = 1015) 317 K/UL Delfino OrtaLIPID [id number] 00:00:00* Test Item Value Reference Range Interpretation Comme nts CHOLESTEROL (test code = 2210) 215 MG/DL TRIGLYCERIDES (test code = 2232) 61 MG/DL HDL CHOLESTEROL (test code = 2220) 93 MG/DL CALC LDL CHOL (test code = 2237) 110 MG/DL RISK RATIO LDL/HDL (test cod e = 2238) 1.18 RATIO Delfino OrtaCOMPREHENSIVE METABOLIC [id number] 00:00:00* Test Item Value Reference Range Interpretation Comme nts GLUCOSE (test code = 2217) 93 MG/DL BUN (test code = 2208) 20 MG/DL CREATININE (test code = 2214) 1.18 MG/DL eGFR AMER. (test cod e = 37955) 61 ML/MIN/1.73 eGFR NON- AMER. (test code = 61251) 52 ML/MIN/1.73 CALC BUN/CREAT (test code = [...] ALT (test code = 2219) 15 U/L Delfnio Schumacher [facility] [id number] 00:00:00* Test Item Value Reference Range Interpretation [...] (test code = 1015) 317 K/UL Delfino OrtaC W/AUTO [id number] 00:00:00* Test Item Value Reference Range Interpretation [...] (test code = 1015) 317 K/UL LIPID [id number] 00:00:00* Test Item Value Reference Range Interpretation Comme nts CHOLESTEROL (test code = 2210) 215 MG/DL TRIGLYCERIDES (test code = 2232) 61 MG/DL HDL CHOLESTEROL (test code = 2220) 93 MG/DL CALC LDL CHOL (test code = 2237) 110 MG/DL RISK RATIO LDL/HDL (test cod e = 2238) 1.18 RATIO COMPREHENSIVE METABOLIC [id number] 00:00:00* Test Item Value Reference Range Interpretation Comme nts GLUCOSE (test code = 2217) 93 MG/DL BUN (test code = 2208) 20 MG/DL CREATININE (test code = 2214) 1.18 MG/DL eGFR AMER. (test cod e = 80554) 61 ML/MIN/1.73 eGFR NON- AMER. (test code = 46126) 52 ML/MIN/1.73 CALC BUN/CREAT (test code = [...] code = 2219) 15 U/L CBC W/AUTO [id number] 00:00:00* Test Item Value Reference Range Interpretation [...] (test code = 1015) 317 K/UL LIPID [id number] 00:00:00* Test Item Value Reference Range Interpretation Comme nts CHOLESTEROL (test code = 2210) 215 MG/DL TRIGLYCERIDES (test code = 2232) 61 MG/DL HDL CHOLESTEROL (test code = 2220) 93 MG/DL CALC LDL CHOL (test code = 2237) 110 MG/DL RISK RATIO LDL/HDL (test cod e = 2238) 1.18 RATIO COMPREHENSIVE METABOLIC [id number] 00:00:00* Test Item Value Reference Range Interpretation Comme nts GLUCOSE (test code = 2217) 93 MG/DL BUN (test code = 2208) 20 MG/DL CREATININE (test code = 2214) 1.18 MG/DL eGFR AMER. (test cod e = 33148) 61 ML/MIN/1.73 eGFR NON- AMER. (test code = 41442) 52 ML/MIN/1.73 CALC BUN/CREAT (test code = [...] code = 2219) 15 U/L CBC W/AUTO [id number] 00:00:00* Test Item Value Reference Range Interpretation [...] (test code = 1015) 317 K/UL LIPID [id number] 00:00:00* Test Item Value Reference Range Interpretation Comme nts CHOLESTEROL (test code = 2210) 215 MG/DL TRIGLYCERIDES (test code = 2232) 61 MG/DL HDL CHOLESTEROL (test code = 2220) 93 MG/DL CALC LDL CHOL (test code = 2237) 110 MG/DL RISK RATIO LDL/HDL (test cod e = 2238) 1.18 RATIO COMPREHENSIVE METABOLIC [id number] 00:00:00* Test Item Value Reference Range Interpretation Comme nts GLUCOSE (test code = 2217) 93 MG/DL BUN (test code = 2208) 20 MG/DL CREATININE (test code = 2214) 1.18 MG/DL eGFR AMER. (test cod e = 57857) 61 ML/MIN/1.73 eGFR NON- AMER. (test code = 14926) 52 ML/MIN/1.73 CALC BUN/CREAT (test code = [...] code = 2219) 15 U/L CBC W/AUTO [id number] 00:00:00* Test Item Value Reference Range Interpretation [...] (test code = 1015) 317 K/UL LIPID [id number] 00:00:00* Test Item Value Reference Range Interpretation Comme nts CHOLESTEROL (test code = 2210) 215 MG/DL TRIGLYCERIDES (test code = 2232) 61 MG/DL HDL CHOLESTEROL (test code = 2220) 93 MG/DL CALC LDL CHOL (test code = 2237) 110 MG/DL RISK RATIO LDL/HDL (test cod e = 2238) 1.18 RATIO COMPREHENSIVE METABOLIC [id number] 00:00:00* Test Item Value Reference Range Interpretation Comme nts GLUCOSE (test code = 2217) 93 MG/DL BUN (test code = 2208) 20 MG/DL CREATININE (test code = 2214) 1.18 MG/DL eGFR AMER. (test cod e = 35990) 61 ML/MIN/1.73 eGFR NON- AMER. (test code = 11754) 52 ML/MIN/1.73 CALC BUN/CREAT (test code = [...] (test code = 2219) 15 U/L LIPID [id number] 00:00:00* Test Item Value Reference Range Interpretation Comme nts CHOLESTEROL (test code = 2210) 215 MG/DL TRIGLYCERIDES (test code = 2232) 61 MG/DL HDL CHOLESTEROL (test code = 2220) 93 MG/DL CALC LDL CHOL (test code = 2237) 110 MG/DL RISK RATIO LDL/HDL (test cod e = 2238) 1.18 RATIO Delfino F AustinCOMPREHENSIVE METABOLIC [id number] 00:00:00* Test Item Value Reference Range Interpretation Comme nts GLUCOSE (test code = 2217) 93 MG/DL BUN (test code = 2208) 20 MG/DL CREATININE (test code = 2214) 1.18 MG/DL eGFR AMER. (test cod e = 20535) 61 ML/MIN/1.73 eGFR NON- AMER. (test code = 44983) 52 ML/MIN/1.73 CALC BUN/CREAT (test code = [...] = 2219) 15 U/L Delfino OrtaCBC W/AUTO [id number] 00:00:00* Test Item Value Reference Range Interpretation [...] code = 1015) 317 K/UL Delfino OrtaLIPID [id number] 00:00:00* Test Item Value Reference Range Interpretation Comme nts CHOLESTEROL (test code = 2210) 215 MG/DL TRIGLYCERIDES (test code = 2232) 61 MG/DL HDL CHOLESTEROL (test code = 2220) 93 MG/DL CALC LDL CHOL (test code = 2237) 110 MG/DL RISK RATIO LDL/HDL (test cod e = 2238) 1.18 RATIO Delfino Schumacher YouCOMPREHENSIVE METABOLIC [id number] 00:00:00* Test Item Value Reference Range Interpretation Comme nts GLUCOSE (test code = 2217) 93 MG/DL BUN (test code = 2208) 20 MG/DL CREATININE (test code = 2214) 1.18 MG/DL eGFR AMER. (test cod e = 04393) 61 ML/MIN/1.73 eGFR NON- AMER. (test code = 36858) 52 ML/MIN/1.73 CALC BUN/CREAT (test code = [...] code = 2219) 15 U/L Delfino Endy [employer] TechnologiesCBC W/AUTO [id number] 00:00:00* Test Item Value Reference Range Interpretation [...] (test code = 1015) 317 K/UL Delfino Endy [employer] TechnologiesCBC W/AUTO [id number] 00:00:00* Test Item Value Reference Range Interpretation [...] = 1015) 317 K/UL Delfino Schumacher AustinLIPID [id number] 00:00:00* Test Item Value Reference Range Interpretation Comme nts CHOLESTEROL (test code = 2210) 215 MG/DL TRIGLYCERIDES (test code = 2232) 61 MG/DL HDL CHOLESTEROL (test code = 2220) 93 MG/DL CALC LDL CHOL (test code = 2237) 110 MG/DL RISK RATIO LDL/HDL (test cod e = 2238) 1.18 RATIO Delfino OrtaCOMPREHENSIVE METABOLIC [id number] 00:00:00* Test Item Value Reference Range Interpretation Comme nts GLUCOSE (test code = 2217) 93 MG/DL BUN (test code = 2208) 20 MG/DL CREATININE (test code = 2214) 1.18 MG/DL eGFR AMER. (test cod e = 69087) 61 ML/MIN/1.73 eGFR NON- AMER. (test code = 50150) 52 ML/MIN/1.73 CALC BUN/CREAT (test code = [...] = 2219) 15 U/L Delfino OrtaCBC W/AUTO [id number] 00:00:00* Test Item Value Reference Range Interpretation [...] code = 1015) 317 K/UL Delfino OrtaLIPID [id number] 00:00:00* Test Item Value Reference Range Interpretation Comme nts CHOLESTEROL (test code = 2210) 215 MG/DL TRIGLYCERIDES (test code = 2232) 61 MG/DL HDL CHOLESTEROL (test code = 2220) 93 MG/DL CALC LDL CHOL (test code = 2237) 110 MG/DL RISK RATIO LDL/HDL (test cod e = 2238) 1.18 RATIO Delfino OrtaLIPID [id number] 00:00:00* Test Item Value Reference Range Interpretation Comme nts CHOLESTEROL (test code = 2210) 215 MG/DL TRIGLYCERIDES (test code = 2232) 61 MG/DL HDL CHOLESTEROL (test code = 2220) 93 MG/DL CALC LDL CHOL (test code = 2237) 110 MG/DL RISK RATIO LDL/HDL (test cod e = 2238) 1.18 RATIO Delfino OrtaCOMPREHENSIVE METABOLIC [id number] 00:00:00* Test Item Value Reference Range Interpretation Comme nts GLUCOSE (test code = 2217) 93 MG/DL BUN (test code = 2208) 20 MG/DL CREATININE (test code = 2214) 1.18 MG/DL eGFR AMER. (test cod e = 35799) 61 ML/MIN/1.73 eGFR NON- AMER. (test code = 55070) 52 ML/MIN/1.73 CALC BUN/CREAT (test code = [...] = 2219) 15 U/L Delfino OrtaCBC W/AUTO [id number] 00:00:00* Test Item Value Reference Range Interpretation [...] code = 1015) 317 K/UL Delfino OrtaLIPID [id number] 00:00:00* Test Item Value Reference Range Interpretation Comme nts CHOLESTEROL (test code = 2210) 215 MG/DL TRIGLYCERIDES (test code = 2232) 61 MG/DL HDL CHOLESTEROL (test code = 2220) 93 MG/DL CALC LDL CHOL (test code = 2237) 110 MG/DL RISK RATIO LDL/HDL (test cod e = 2238) 1.18 RATIO Delfino OrtaCOMPREHENSIVE METABOLIC [id number] 00:00:00* Test Item Value Reference Range Interpretation Comme nts GLUCOSE (test code = 2217) 93 MG/DL BUN (test code = 2208) 20 MG/DL CREATININE (test code = 2214) 1.18 MG/DL eGFR AMER. (test cod e = 27316) 61 ML/MIN/1.73 eGFR NON- AMER. (test code = 93404) 52 ML/MIN/1.73 CALC BUN/CREAT (test code = [...] Comme nts CULTURE, URINE (test code = 38057) SPECIMEN NUMBER: [id number] Delfino OrtaCULTURE, URINE [ADDED]2017-08-24 00:00:00* Test Item Value Reference Range Interpretation Comme nts CULTURE, URINE (test code = 77766) SPECIMEN NUMBER: [id number] Delfino Schumacher AustinCULTURE, URINE [ADDED]2017-08-24 00:00:00* Test Item Value Reference Range Interpretation Comme nts CULTURE, URINE (test code = 42370) SPECIMEN NUMBER: [id number] Delfino OrtaCULTURE, URINE [ADDED]2017-08-24 00:00:00* Test Item Value Reference Range Interpretation Comme nts CULTURE, URINE (test code = 18673) SPECIMEN NUMBER: [id number] Delfino OrtaCULTURE, URINE [ADDED]2017-08-24 00:00:00* Test Item Value Reference Range Interpretation Comme nts CULTURE, URINE (test code = 09130) SPECIMEN NUMBER: [id number] Delfino OrtaCULTURE, URINE [ADDED]2017-08-24 00:00:00* Test Item Value Reference Range Interpretation Comme nts CULTURE, URINE (test code = 90758) SPECIMEN NUMBER: [id number] Delfino OrtaCULTURE, URINE [ADDED]2017-08-24 00:00:00* Test Item Value Reference Range Interpretation Comme nts CULTURE, URINE (test code = 44306) SPECIMEN NUMBER: [id number] Delfino OrtaCULTURE, URINE [ADDED]2017-08-24 00:00:00* Test Item Value Reference Range Interpretation Comme nts CULTURE, URINE (test code = 03906) SPECIMEN NUMBER: [id number] Delfino OrtaCULTURE, URINE [ADDED]2017-08-24 00:00:00* Test Item Value Reference Range Interpretation Comme nts CULTURE, URINE (test code = 28283) SPECIMEN NUMBER: [id number] Delfino OrtaCULTURE, URINE [ADDED]2017-08-24 00:00:00* Test Item Value Reference Range Interpretation Comme nts CULTURE, URINE (test code = 58124) SPECIMEN NUMBER: [id number] Delfino OrtaCULTURE, URINE [ADDED]2017-08-24 00:00:00* Test Item Value Reference Range Interpretation Comme nts CULTURE, URINE (test code = 63738) SPECIMEN NUMBER: [id number] Delfino OrtaCULTURE, URINE [ADDED]2017-08-24 00:00:00* Test Item Value Reference Range Interpretation Comme nts CULTURE, URINE (test code = 98340) SPECIMEN NUMBER: [id number] CULTURE, URINE [ADDED]2017-08-24 00:00:00* Test Item Value Reference Range Interpretation Comme nts CULTURE, URINE (test code = 92214) SPECIMEN NUMBER: [id number] CULTURE, URINE [ADDED]2017-08-24 00:00:00* Test Item Value Reference Range Interpretation Comme nts CULTURE, URINE (test code = 59050) SPECIMEN NUMBER: [id number] CULTURE, URINE [ADDED]2017-08-24 00:00:00* Test Item Value Reference Range Interpretation Comme nts CULTURE, URINE (test code = 87729) SPECIMEN NUMBER: [id number] CULTURE, URINE [ADDED]2017-08-24 00:00:00* Test Item Value Reference Range Interpretation Comme nts CULTURE, URINE (test code = 01611) SPECIMEN NUMBER: [id number] Delfino Schumacher AustinCULTURE, URINE [ADDED]2017-08-24 00:00:00* Test Item Value Reference Range Interpretation Comme nts CULTURE, URINE (test code = 30214) SPECIMEN NUMBER: [id number] Delfino Schumacher AustinCULTURE, URINE [ADDED]2017-08-24 00:00:00* Test Item Value Reference Range Interpretation Comme nts CULTURE, URINE (test code = 77607) SPECIMEN NUMBER: [id number] Delfino Schumacher AustinCULTURE, URINE [ADDED]2017-08-24 00:00:00* Test Item Value Reference Range Interpretation Comme nts CULTURE, URINE (test code = 65446) SPECIMEN NUMBER: [id number] Delfino Schumacher AustinHEPATITIS C REFLEX [id number] 00:00:00* Test Item Value Reference Range Interpretation Comme nts HEPATITIS C ANTIBODY (test c ode = 4675) NON-REACTIVE Delfino Schumacher AustinHEPATITIS C REFLEX [id number] 00:00:00* Test Item Value Reference Range Interpretation Comme nts HEPATITIS C ANTIBODY (test c ode = 4675) NON-REACTIVE Delfino Schumacher AustinCBC W/AUTO [id number] 00:00:00* Test Item Value Reference Range Interpretation [...] code = 1016) (NOTE) Delfino OrtaCOMPREHENSIVE METABOLIC [id number] 00:00:00* Test Item Value Reference Range Interpretation Comme nts GLUCOSE (test code = 2217) 92 MG/DL BUN (test code = 2208) 23 MG/DL CREATININE (test code = 2214) 1.27 MG/DL eGFR AMER. (test cod e = 38990) 55 ML/MIN/1.73 eGFR NON- AMER. (test code = 86101) 48 ML/MIN/1.73 CALC BUN/CREAT (test code = [...] 2219) 23 U/L Delfino OrtaHEPATITIS C REFLEX [id number] 00:00:00* Test Item Value Reference Range Interpretation Comme nts HEPATITIS C ANTIBODY (test c ode = 4675) NON-REACTIVE Delfino Schumacher YouCBC W/AUTO [id number] 00:00:00* Test Item Value Reference Range Interpretation [...] code = 1016) (NOTE) Delfino OrtaCOMPREHENSIVE METABOLIC [id number] 00:00:00* Test Item Value Reference Range Interpretation Comme nts GLUCOSE (test code = 2217) 92 MG/DL BUN (test code = 2208) 23 MG/DL CREATININE (test code = 2214) 1.27 MG/DL eGFR AMER. (test cod e = 31907) 55 ML/MIN/1.73 eGFR NON- AMER. (test code = 22717) 48 ML/MIN/1.73 CALC BUN/CREAT (test code = [...] 23 U/L Delfino F AustinHEPATITIS C REFLEX [id number] 00:00:00* Test Item Value Reference Range Interpretation Comme nts HEPATITIS C ANTIBODY (test c ode = 4675) NON-REACTIVE Delfino OrtaCBC W/AUTO [id number] 00:00:00* Test Item Value Reference Range Interpretation [...] code = 1016) (NOTE) Delfino OrtaCOMPREHENSIVE METABOLIC [id number] 00:00:00* Test Item Value Reference Range Interpretation Comme nts GLUCOSE (test code = 2217) 92 MG/DL BUN (test code = 2208) 23 MG/DL CREATININE (test code = 2214) 1.27 MG/DL eGFR AMER. (test cod e = 61391) 55 ML/MIN/1.73 eGFR NON- AMER. (test code = 43281) 48 ML/MIN/1.73 CALC BUN/CREAT (test code = [...] 2219) 23 U/L Delfino OrtaHEPATITIS C REFLEX [id number] 00:00:00* Test Item Value Reference Range Interpretation Comme nts HEPATITIS C ANTIBODY (test c ode = 4675) NON-REACTIVE Delfino OrtaCBC W/AUTO [id number] 00:00:00* Test Item Value Reference Range Interpretation [...] code = 1016) (NOTE) Delfino OrtaCOMPREHENSIVE METABOLIC [id number] 00:00:00* Test Item Value Reference Range Interpretation Comme nts GLUCOSE (test code = 2217) 92 MG/DL BUN (test code = 2208) 23 MG/DL CREATININE (test code = 2214) 1.27 MG/DL eGFR AMER. (test cod e = 21437) 55 ML/MIN/1.73 eGFR NON- AMER. (test code = 77005) 48 ML/MIN/1.73 CALC BUN/CREAT (test code = [...] 2219) 23 U/L Delfino OrtaHEPATITIS C REFLEX [id number] 00:00:00* Test Item Value Reference Range Interpretation Comme nts HEPATITIS C ANTIBODY (test c ode = 4675) NON-REACTIVE Delfino OrtaCBC W/AUTO [id number] 00:00:00* Test Item Value Reference Range Interpretation [...] code = 1016) (NOTE) Delfino OrtaCOMPREHENSIVE METABOLIC [id number] 00:00:00* Test Item Value Reference Range Interpretation Comme nts GLUCOSE (test code = 2217) 92 MG/DL BUN (test code = 2208) 23 MG/DL CREATININE (test code = 2214) 1.27 MG/DL eGFR AMER. (test cod e = 30520) 55 ML/MIN/1.73 eGFR NON- AMER. (test code = 06247) 48 ML/MIN/1.73 CALC BUN/CREAT (test code = [...] 2219) 23 U/L Delfino OrtaHEPATITIS C REFLEX [id number] 00:00:00* Test Item Value Reference Range Interpretation Comme nts HEPATITIS C ANTIBODY (test c ode = 4675) NON-REACTIVE Delfino OrtaCBC W/AUTO [id number] 00:00:00* Test Item Value Reference Range Interpretation [...] code = 1016) (NOTE) Delfino OrtaCOMPREHENSIVE METABOLIC [id number] 00:00:00* Test Item Value Reference Range Interpretation Comme nts GLUCOSE (test code = 2217) 92 MG/DL BUN (test code = 2208) 23 MG/DL CREATININE (test code = 2214) 1.27 MG/DL eGFR AMER. (test cod e = 90109) 55 ML/MIN/1.73 eGFR NON- AMER. (test code = 59428) 48 ML/MIN/1.73 CALC BUN/CREAT (test code = [...] 23 U/L Delfino Schumacher YouHEPATITIS C REFLEX [id number] 00:00:00* Test Item Value Reference Range Interpretation Comme nts HEPATITIS C ANTIBODY (test c ode = 4675) NON-REACTIVE Delfino OrtaCBC W/AUTO [id number] 00:00:00* Test Item Value Reference Range Interpretation [...] code = 1016) (NOTE) Delfino OrtaCOMPREHENSIVE METABOLIC [id number] 00:00:00* Test Item Value Reference Range Interpretation Comme nts GLUCOSE (test code = 2217) 92 MG/DL BUN (test code = 2208) 23 MG/DL CREATININE (test code = 2214) 1.27 MG/DL eGFR AMER. (test cod e = 91056) 55 ML/MIN/1.73 eGFR NON- AMER. (test code = 54952) 48 ML/MIN/1.73 CALC BUN/CREAT (test code = [...] 2219) 23 U/L Delfino OrtaHEPATITIS C REFLEX [id number] 00:00:00* Test Item Value Reference Range Interpretation Comme nts HEPATITIS C ANTIBODY (test c ode = 4675) NON-REACTIVE Delfino OrtaCBC W/AUTO [id number] 00:00:00* Test Item Value Reference Range Interpretation [...] code = 1016) (NOTE) Delfino OrtaCOMPREHENSIVE METABOLIC [id number] 00:00:00* Test Item Value Reference Range Interpretation Comme nts GLUCOSE (test code = 2217) 92 MG/DL BUN (test code = 2208) 23 MG/DL CREATININE (test code = 2214) 1.27 MG/DL eGFR AMER. (test cod e = 14112) 55 ML/MIN/1.73 eGFR NON- AMER. (test code = 03746) 48 ML/MIN/1.73 CALC BUN/CREAT (test code = [...] 2219) 23 U/L Delfino OrtaHEPATITIS C REFLEX [id number] 00:00:00* Test Item Value Reference Range Interpretation Comme nts HEPATITIS C ANTIBODY (test c ode = 4675) NON-REACTIVE Delfino Schumacher YouCBC W/AUTO [id number] 00:00:00* Test Item Value Reference Range Interpretation [...] code = 1016) (NOTE) Delfino OrtaCOMPREHENSIVE METABOLIC [id number] 00:00:00* Test Item Value Reference Range Interpretation Comme nts GLUCOSE (test code = 2217) 92 MG/DL BUN (test code = 2208) 23 MG/DL CREATININE (test code = 2214) 1.27 MG/DL eGFR AMER. (test cod e = 04886) 55 ML/MIN/1.73 eGFR NON- AMER. (test code = 03416) 48 ML/MIN/1.73 CALC BUN/CREAT (test code = [...] 2219) 23 U/L Delfino OrtaHEPATITIS C REFLEX [id number] 00:00:00* Test Item Value Reference Range Interpretation Comme nts HEPATITIS C ANTIBODY (test c ode = 4691) NON-REACTIVE Delfino OrtaCBC W/AUTO [id number] 00:00:00* Test Item Value Reference Range Interpretation [...] COMMENTS (test code = 1016) (NOTE) Delfino OrtaLIONC W/AUTO [id number] 00:00:00* Test Item Value Reference Range Interpretation [...] code = 1016) (NOTE) Delfino OrtaCOMPREHENSIVE METABOLIC [id number] 00:00:00* Test Item Value Reference Range Interpretation Comme nts GLUCOSE (test code = 2217) 92 MG/DL BUN (test code = 2208) 23 MG/DL CREATININE (test code = 2214) 1.27 MG/DL eGFR AMER. (test cod e = 84125) 55 ML/MIN/1.73 eGFR NON- AMER. (test code = 03342) 48 ML/MIN/1.73 CALC BUN/CREAT (test code = [...] (test code = 2219) 23 U/L [facility]AUTO [id number] 00:00:00* Test Item Value Reference Range Interpretation [...] (test code = 1016) (NOTE) COMPREHENSIVE METABOLIC [id number] 00:00:00* Test Item Value Reference Range Interpretation Comme nts GLUCOSE (test code = 2217) 92 MG/DL BUN (test code = 2208) 23 MG/DL CREATININE (test code = 2214) 1.27 MG/DL eGFR AMER. (test cod e = 60873) 55 ML/MIN/1.73 eGFR NON- AMER. (test code = 80289) 48 ML/MIN/1.73 CALC BUN/CREAT (test code = [...] = 2219) 23 U/L HEPATITIS C REFLEX [id number] 00:00:00* Test Item Value Reference Range Interpretation Comme nts HEPATITIS C ANTIBODY (test c ode = 4675) NON-REACTIVE CBC W/AUTO [id number] 00:00:00* Test Item Value Reference Range Interpretation [...] (test code = 1016) (NOTE) COMPREHENSIVE METABOLIC [id number] 00:00:00* Test Item Value Reference Range Interpretation Comme nts GLUCOSE (test code = 2217) 92 MG/DL BUN (test code = 2208) 23 MG/DL CREATININE (test code = 2214) 1.27 MG/DL eGFR AMER. (test cod e = 21762) 55 ML/MIN/1.73 eGFR NON- AMER. (test code = 56440) 48 ML/MIN/1.73 CALC BUN/CREAT (test code = [...] = 2219) 23 U/L HEPATITIS C REFLEX [id number] 00:00:00* Test Item Value Reference Range Interpretation Comme nts HEPATITIS C ANTIBODY (test c ode = 4675) NON-REACTIVE CBC W/AUTO [id number] 00:00:00* Test Item Value Reference Range Interpretation [...] (test code = 1016) (NOTE) COMPREHENSIVE METABOLIC [id number] 00:00:00* Test Item Value Reference Range Interpretation Comme nts GLUCOSE (test code = 2217) 92 MG/DL BUN (test code = 2208) 23 MG/DL CREATININE (test code = 2214) 1.27 MG/DL eGFR AMER. (test cod e = 71057) 55 ML/MIN/1.73 eGFR NON- AMER. (test code = 93453) 48 ML/MIN/1.73 CALC BUN/CREAT (test code = [...] = 2219) 23 U/L HEPATITIS C REFLEX [id number] 00:00:00* Test Item Value Reference Range Interpretation Comme nts HEPATITIS C ANTIBODY (test c ode = 4675) NON-REACTIVE CBC W/AUTO [id number] 00:00:00* Test Item Value Reference Range Interpretation [...] (test code = 1016) (NOTE) COMPREHENSIVE METABOLIC [id number] 00:00:00* Test Item Value Reference Range Interpretation Comme nts GLUCOSE (test code = 2217) 92 MG/DL BUN (test code = 2208) 23 MG/DL CREATININE (test code = 2214) 1.27 MG/DL eGFR AMER. (test cod e = 75935) 55 ML/MIN/1.73 eGFR NON- AMER. (test code = 77041) 48 ML/MIN/1.73 CALC BUN/CREAT (test code = [...] = 2219) 23 U/L HEPATITIS C REFLEX [id number] 00:00:00* Test Item Value Reference Range Interpretation Comme nts HEPATITIS C ANTIBODY (test c ode = 4675) NON-REACTIVE HEPATITIS C REFLEX [id number] 00:00:00* Test Item Value Reference Range Interpretation Comme nts HEPATITIS C ANTIBODY (test c ode = 4675) NON-REACTIVE Delfino OrtaCBC W/AUTO [id number] 00:00:00* Test Item Value Reference Range Interpretation [...] code = 1016) (NOTE) Delfino OrtaCOMPREHENSIVE METABOLIC [id number] 00:00:00* Test Item Value Reference Range Interpretation Comme nts GLUCOSE (test code = 2217) 92 MG/DL BUN (test code = 2208) 23 MG/DL CREATININE (test code = 2214) 1.27 MG/DL eGFR AMER. (test cod e = 21902) 55 ML/MIN/1.73 eGFR NON- AMER. (test code = 55692) 48 ML/MIN/1.73 CALC BUN/CREAT (test code = [...] 2219) 23 U/L Delfino OrtaHEPATITIS C REFLEX [id number] 00:00:00* Test Item Value Reference Range Interpretation Comme nts HEPATITIS C ANTIBODY (test c ode = 4675) NON-REACTIVE Delfino OrtaCBC W/AUTO [id number] 00:00:00* Test Item Value Reference Range Interpretation [...] code = 1016) (NOTE) Delfino OrtaCOMPREHENSIVE METABOLIC [id number] 00:00:00* Test Item Value Reference Range Interpretation Comme nts GLUCOSE (test code = 2217) 92 MG/DL BUN (test code = 2208) 23 MG/DL CREATININE (test code = 2214) 1.27 MG/DL eGFR AMER. (test cod e = 26821) 55 ML/MIN/1.73 eGFR NON- AMER. (test code = 42363) 48 ML/MIN/1.73 CALC BUN/CREAT (test code = [...] 2219) 23 U/L Delfino OrtaHEPATITIS C REFLEX [id number] 00:00:00* Test Item Value Reference Range Interpretation Comme nts HEPATITIS C ANTIBODY (test c ode = 4675) NON-REACTIVE Delfino OrtaCOMPREHENSIVE METABOLIC [id number] 00:00:00* Test Item Value Reference Range Interpretation Comme nts GLUCOSE (test code = 2217) 92 MG/DL BUN (test code = 2208) 23 MG/DL CREATININE (test code = 2214) 1.27 MG/DL eGFR AMER. (test cod e = 73727) 55 ML/MIN/1.73 eGFR NON- AMER. (test code = 53566) 48 ML/MIN/1.73 CALC BUN/CREAT (test code = [...] code = 2219) 23 U/L Delfino Schumacher YouCBC W/AUTO [id number] 00:00:00* Test Item Value Reference Range Interpretation [...] code = 1016) (NOTE) Delfino OrtaCOMPREHENSIVE METABOLIC [id number] 00:00:00* Test Item Value Reference Range Interpretation Comme nts GLUCOSE (test code = 2217) 92 MG/DL BUN (test code = 2208) 23 MG/DL CREATININE (test code = 2214) 1.27 MG/DL eGFR AMER. (test cod e = 42583) 55 ML/MIN/1.73 eGFR NON- AMER. (test code = 36969) 48 ML/MIN/1.73 CALC BUN/CREAT (test code = [...] 2219) 23 U/L Delfino OrtaHEPATITIS C REFLEX [id number] 00:00:00* Test Item Value Reference Range Interpretation Comme nts HEPATITIS C ANTIBODY (test c ode = 4675) NON-REACTIVE Delfino OrtaCBC W/AUTO [id number] 00:00:00* Test Item Value Reference Range Interpretation [...] code = 1016) (NOTE) Delfino OrtaCOMPREHENSIVE METABOLIC [id number] 00:00:00* Test Item Value Reference Range Interpretation Comme nts GLUCOSE (test code = 2217) 92 MG/DL BUN (test code = 2208) 23 MG/DL CREATININE (test code = 2214) 1.27 MG/DL eGFR AMER. (test cod e = 42421) 55 ML/MIN/1.73 eGFR NON- AMER. (test code = 95154) 48 ML/MIN/1.73 CALC BUN/CREAT (test code = [...] (test code = 2219) 23 U/L Delfino OrtaLIPID [id number] 00:00:00* Test Item Value Reference Range Interpretation Comme nts CHOLESTEROL (test code = 2210) 211 MG/DL TRIGLYCERIDES (test code = 2232) 52 MG/DL HDL CHOLESTEROL (test code = 2220) 90 MG/DL CALC LDL CHOL (test code = 2237) 111 MG/DL RISK RATIO LDL/HDL (test cod e = 2238) 1.23 RATIO Delfino OrtaCBC W/AUTO [id number] 00:00:00* Test Item Value Reference Range Interpretation [...] code = 1016) (NOTE) Delfino OrtaCOMPREHENSIVE METABOLIC [id number] 00:00:00* Test Item Value Reference Range Interpretation Comme nts GLUCOSE (test code = 2217) 88 MG/DL BUN (test code = 2208) 24 MG/DL CREATININE (test code = 2214) 0.94 MG/DL eGFR AMER. (test cod e = 72591) 80 ML/MIN/1.73 eGFR NON- AMER. (test code = 20490) 69 ML/MIN/1.73 CALC BUN/CREAT (test code = [...] code = 2219) 10 U/L Delfino OrtaLIPID [id number] 00:00:00* Test Item Value Reference Range Interpretation Comme nts CHOLESTEROL (test code = 2210) 211 MG/DL TRIGLYCERIDES (test code = 2232) 52 MG/DL HDL CHOLESTEROL (test code = 2220) 90 MG/DL CALC LDL CHOL (test code = 2237) 111 MG/DL RISK RATIO LDL/HDL (test cod e = 2238) 1.23 RATIO Delfino OrtaCBC W/AUTO [id number] 00:00:00* Test Item Value Reference Range Interpretation [...] code = 1016) (NOTE) Delfino OrtaCOMPREHENSIVE METABOLIC [id number] 00:00:00* Test Item Value Reference Range Interpretation Comme nts GLUCOSE (test code = 2217) 88 MG/DL BUN (test code = 2208) 24 MG/DL CREATININE (test code = 2214) 0.94 MG/DL eGFR AMER. (test cod e = 27170) 80 ML/MIN/1.73 eGFR NON- AMER. (test code = 83886) 69 ML/MIN/1.73 CALC BUN/CREAT (test code = [...] code = 2219) 10 U/L Delfino OrtaLIPID [id number] 00:00:00* Test Item Value Reference Range Interpretation Comme nts CHOLESTEROL (test code = 2210) 211 MG/DL TRIGLYCERIDES (test code = 2232) 52 MG/DL HDL CHOLESTEROL (test code = 2220) 90 MG/DL CALC LDL CHOL (test code = 2237) 111 MG/DL RISK RATIO LDL/HDL (test cod e = 2238) 1.23 RATIO Delfino OrtaCBC W/AUTO [id number] 00:00:00* Test Item Value Reference Range Interpretation [...] code = 1016) (NOTE) Delfino OrtaCOMPREHENSIVE METABOLIC [id number] 00:00:00* Test Item Value Reference Range Interpretation Comme nts GLUCOSE (test code = 2217) 88 MG/DL BUN (test code = 2208) 24 MG/DL CREATININE (test code = 2214) 0.94 MG/DL eGFR AMER. (test cod e = 76643) 80 ML/MIN/1.73 eGFR NON- AMER. (test code = 32264) 69 ML/MIN/1.73 CALC BUN/CREAT (test code = [...] code = 2219) 10 U/L Delfino OrtaLIPID [id number] 00:00:00* Test Item Value Reference Range Interpretation Comme nts CHOLESTEROL (test code = 2210) 211 MG/DL TRIGLYCERIDES (test code = 2232) 52 MG/DL HDL CHOLESTEROL (test code = 2220) 90 MG/DL CALC LDL CHOL (test code = 2237) 111 MG/DL RISK RATIO LDL/HDL (test cod e = 2238) 1.23 RATIO Delfino OrtaCBC W/AUTO [id number] 00:00:00* Test Item Value Reference Range Interpretation [...] code = 1016) (NOTE) Delfino OrtaCOMPREHENSIVE METABOLIC [id number] 00:00:00* Test Item Value Reference Range Interpretation Comme nts GLUCOSE (test code = 2217) 88 MG/DL BUN (test code = 2208) 24 MG/DL CREATININE (test code = 2214) 0.94 MG/DL eGFR AMER. (test cod e = 77365) 80 ML/MIN/1.73 eGFR NON- AMER. (test code = 33282) 69 ML/MIN/1.73 CALC BUN/CREAT (test code = [...] code = 2219) 10 U/L Delfino OrtaLIPID [id number] 00:00:00* Test Item Value Reference Range Interpretation Comme nts CHOLESTEROL (test code = 2210) 211 MG/DL TRIGLYCERIDES (test code = 2232) 52 MG/DL HDL CHOLESTEROL (test code = 2220) 90 MG/DL CALC LDL CHOL (test code = 2237) 111 MG/DL RISK RATIO LDL/HDL (test cod e = 2238) 1.23 RATIO Delfino OrtaCBC W/AUTO [id number] 00:00:00* Test Item Value Reference Range Interpretation [...] code = 1016) (NOTE) Delfino OrtaCOMPREHENSIVE METABOLIC [id number] 00:00:00* Test Item Value Reference Range Interpretation Comme nts GLUCOSE (test code = 2217) 88 MG/DL BUN (test code = 2208) 24 MG/DL CREATININE (test code = 2214) 0.94 MG/DL eGFR AMER. (test cod e = 88534) 80 ML/MIN/1.73 eGFR NON- AMER. (test code = 96646) 69 ML/MIN/1.73 CALC BUN/CREAT (test code = [...] (test code = 2219) 10 U/L Delfino Endy OrtaLIPID [id number] 00:00:00* Test Item Value Reference Range Interpretation Comme nts CHOLESTEROL (test code = 2210) 211 MG/DL TRIGLYCERIDES (test code = 2232) 52 MG/DL HDL CHOLESTEROL (test code = 2220) 90 MG/DL CALC LDL CHOL (test code = 2237) 111 MG/DL RISK RATIO LDL/HDL (test cod e = 2238) 1.23 RATIO Delfino Endy YouCBC W/AUTO [id number] 00:00:00* Test Item Value Reference Range Interpretation [...] code = 1016) (NOTE) Delfino OrtaCOMPREHENSIVE METABOLIC [id number] 00:00:00* Test Item Value Reference Range Interpretation Comme nts GLUCOSE (test code = 2217) 88 MG/DL BUN (test code = 2208) 24 MG/DL CREATININE (test code = 2214) 0.94 MG/DL eGFR AMER. (test cod e = 42143) 80 ML/MIN/1.73 eGFR NON- AMER. (test code = 76598) 69 ML/MIN/1.73 CALC BUN/CREAT (test code = [...] code = 2219) 10 U/L Delfino OrtaLIPID [id number] 00:00:00* Test Item Value Reference Range Interpretation Comme nts CHOLESTEROL (test code = 2210) 211 MG/DL TRIGLYCERIDES (test code = 2232) 52 MG/DL HDL CHOLESTEROL (test code = 2220) 90 MG/DL CALC LDL CHOL (test code = 2237) 111 MG/DL RISK RATIO LDL/HDL (test cod e = 2238) 1.23 RATIO Delfino OrtaCBC W/AUTO [id number] 00:00:00* Test Item Value Reference Range Interpretation [...] code = 1016) (NOTE) Delfino OrtaCOMPREHENSIVE METABOLIC [id number] 00:00:00* Test Item Value Reference Range Interpretation Comme nts GLUCOSE (test code = 2217) 88 MG/DL BUN (test code = 2208) 24 MG/DL CREATININE (test code = 2214) 0.94 MG/DL eGFR AMER. (test cod e = 51360) 80 ML/MIN/1.73 eGFR NON- AMER. (test code = 59515) 69 ML/MIN/1.73 CALC BUN/CREAT (test code = [...] code = 2219) 10 U/L Delfino OrtaLIPID [id number] 00:00:00* Test Item Value Reference Range Interpretation Comme nts CHOLESTEROL (test code = 2210) 211 MG/DL TRIGLYCERIDES (test code = 2232) 52 MG/DL HDL CHOLESTEROL (test code = 2220) 90 MG/DL CALC LDL CHOL (test code = 2237) 111 MG/DL RISK RATIO LDL/HDL (test cod e = 2238) 1.23 RATIO Delfino Schumacher YouCBC W/AUTO [id number] 00:00:00* Test Item Value Reference Range Interpretation [...] code = 1016) (NOTE) Delfino OrtaCOMPREHENSIVE METABOLIC [id number] 00:00:00* Test Item Value Reference Range Interpretation Comme nts GLUCOSE (test code = 2217) 88 MG/DL BUN (test code = 2208) 24 MG/DL CREATININE (test code = 2214) 0.94 MG/DL eGFR AMER. (test cod e = 49949) 80 ML/MIN/1.73 eGFR NON- AMER. (test code = 09227) 69 ML/MIN/1.73 CALC BUN/CREAT (test code = [...] code = 2219) 10 U/L Delfino OrtaLIPID [id number] 00:00:00* Test Item Value Reference Range Interpretation Comme nts CHOLESTEROL (test code = 2210) 211 MG/DL TRIGLYCERIDES (test code = 2232) 52 MG/DL HDL CHOLESTEROL (test code = 2220) 90 MG/DL CALC LDL CHOL (test code = 2237) 111 MG/DL RISK RATIO LDL/HDL (test cod e = 2238) 1.23 RATIO Delfino OrtaCBC W/AUTO [id number] 00:00:00* Test Item Value Reference Range Interpretation [...] code = 1016) (NOTE) Delfino OrtaCOMPREHENSIVE METABOLIC [id number] 00:00:00* Test Item Value Reference Range Interpretation Comme nts GLUCOSE (test code = 2217) 88 MG/DL BUN (test code = 2208) 24 MG/DL CREATININE (test code = 2214) 0.94 MG/DL eGFR AMER. (test cod e = 74438) 80 ML/MIN/1.73 eGFR NON- AMER. (test code = 41107) 69 ML/MIN/1.73 CALC BUN/CREAT (test code = [...] code = 2219) 10 U/L Delfino OrtaLIPID [id number] 00:00:00* Test Item Value Reference Range Interpretation Comme nts CHOLESTEROL (test code = 2210) 211 MG/DL TRIGLYCERIDES (test code = 2232) 52 MG/DL HDL CHOLESTEROL (test code = 2220) 90 MG/DL CALC LDL CHOL (test code = 2237) 111 MG/DL RISK RATIO LDL/HDL (test cod e = 2238) 1.23 RATIO Delfino Schumacher AustinCBC W/AUTO [id number] 00:00:00* Test Item Value Reference Range Interpretation [...] = 1016) (NOTE) Delfino Schumacher AustinCBC W/AUTO [id number] 00:00:00* Test Item Value Reference Range Interpretation [...] (test code = 1016) (NOTE) COMPREHENSIVE METABOLIC [id number] 00:00:00* Test Item Value Reference Range Interpretation Comme nts GLUCOSE (test code = 2217) 88 MG/DL BUN (test code = 2208) 24 MG/DL CREATININE (test code = 2214) 0.94 MG/DL eGFR AMER. (test cod e = 52099) 80 ML/MIN/1.73 eGFR NON- AMER. (test code = 24590) 69 ML/MIN/1.73 CALC BUN/CREAT (test code = [...] (test code = 2219) 10 U/L LIPID [id number] 00:00:00* Test Item Value Reference Range Interpretation Comme nts CHOLESTEROL (test code = 2210) 211 MG/DL TRIGLYCERIDES (test code = 2232) 52 MG/DL HDL CHOLESTEROL (test code = 2220) 90 MG/DL CALC LDL CHOL (test code = 2237) 111 MG/DL RISK RATIO LDL/HDL (test cod e = 2238) 1.23 RATIO CBC W/AUTO [id number] 00:00:00* Test Item Value Reference Range Interpretation [...] (test code = 1016) (NOTE) COMPREHENSIVE METABOLIC [id number] 00:00:00* Test Item Value Reference Range Interpretation Comme nts GLUCOSE (test code = 2217) 88 MG/DL BUN (test code = 2208) 24 MG/DL CREATININE (test code = 2214) 0.94 MG/DL eGFR AMER. (test cod e = 52126) 80 ML/MIN/1.73 eGFR NON- AMER. (test code = 83714) 69 ML/MIN/1.73 CALC BUN/CREAT (test code = [...] (test code = 2219) 10 U/L LIPID [id number] 00:00:00* Test Item Value Reference Range Interpretation Comme nts CHOLESTEROL (test code = 2210) 211 MG/DL TRIGLYCERIDES (test code = 2232) 52 MG/DL HDL CHOLESTEROL (test code = 2220) 90 MG/DL CALC LDL CHOL (test code = 2237) 111 MG/DL RISK RATIO LDL/HDL (test cod e = 2238) 1.23 RATIO CBC W/AUTO [id number] 00:00:00* Test Item Value Reference Range Interpretation [...] (test code = 1016) (NOTE) COMPREHENSIVE METABOLIC [id number] 00:00:00* Test Item Value Reference Range Interpretation Comme nts GLUCOSE (test code = 2217) 88 MG/DL BUN (test code = 2208) 24 MG/DL CREATININE (test code = 2214) 0.94 MG/DL eGFR AMER. (test cod e = 46048) 80 ML/MIN/1.73 eGFR NON- AMER. (test code = 09705) 69 ML/MIN/1.73 CALC BUN/CREAT (test code = [...] (test code = 2219) 10 U/L LIPID [id number] 00:00:00* Test Item Value Reference Range Interpretation Comme nts CHOLESTEROL (test code = 2210) 211 MG/DL TRIGLYCERIDES (test code = 2232) 52 MG/DL HDL CHOLESTEROL (test code = 2220) 90 MG/DL CALC LDL CHOL (test code = 2237) 111 MG/DL RISK RATIO LDL/HDL (test cod e = 2238) 1.23 RATIO CBC W/AUTO [id number] 00:00:00* Test Item Value Reference Range Interpretation [...] (test code = 1016) (NOTE) COMPREHENSIVE METABOLIC [id number] 00:00:00* Test Item Value Reference Range Interpretation Comme nts GLUCOSE (test code = 2217) 88 MG/DL BUN (test code = 2208) 24 MG/DL CREATININE (test code = 2214) 0.94 MG/DL eGFR AMER. (test cod e = 05722) 80 ML/MIN/1.73 eGFR NON- AMER. (test code = 26511) 69 ML/MIN/1.73 CALC BUN/CREAT (test code = [...] (test code = 2219) 10 U/L LIPID [id number] 00:00:00* Test Item Value Reference Range Interpretation Comme nts CHOLESTEROL (test code = 2210) 211 MG/DL TRIGLYCERIDES (test code = 2232) 52 MG/DL HDL CHOLESTEROL (test code = 2220) 90 MG/DL CALC LDL CHOL (test code = 2237) 111 MG/DL RISK RATIO LDL/HDL (test cod e = 2238) 1.23 RATIO COMPREHENSIVE METABOLIC [id number] 00:00:00* Test Item Value Reference Range Interpretation Comme nts GLUCOSE (test code = 2217) 88 MG/DL BUN (test code = 2208) 24 MG/DL CREATININE (test code = 2214) 0.94 MG/DL eGFR AMER. (test cod e = 32646) 80 ML/MIN/1.73 eGFR NON- AMER. (test code = 50176) 69 ML/MIN/1.73 CALC BUN/CREAT (test code = [...] code = 2219) 10 U/L Delfino OrtaLIPID [id number] 00:00:00* Test Item Value Reference Range Interpretation Comme nts CHOLESTEROL (test code = 2210) 211 MG/DL TRIGLYCERIDES (test code = 2232) 52 MG/DL HDL CHOLESTEROL (test code = 2220) 90 MG/DL CALC LDL CHOL (test code = 2237) 111 MG/DL RISK RATIO LDL/HDL (test cod e = 2238) 1.23 RATIO Delfino Schumacher AustinCBC W/AUTO [id number] 00:00:00* Test Item Value Reference Range Interpretation [...] = 1016) (NOTE) Delfino Schumacher AustinCBC W/AUTO [id number] 00:00:00* Test Item Value Reference Range Interpretation [...] code = 1016) (NOTE) Delfino OrtaCOMPREHENSIVE METABOLIC [id number] 00:00:00* Test Item Value Reference Range Interpretation Comme nts GLUCOSE (test code = 2217) 88 MG/DL BUN (test code = 2208) 24 MG/DL CREATININE (test code = 2214) 0.94 MG/DL eGFR AMER. (test cod e = 20025) 80 ML/MIN/1.73 eGFR NON- AMER. (test code = 75097) 69 ML/MIN/1.73 CALC BUN/CREAT (test code = [...] code = 2219) 10 U/L Delfino OrtaLIPID [id number] 00:00:00* Test Item Value Reference Range Interpretation Comme nts CHOLESTEROL (test code = 2210) 211 MG/DL TRIGLYCERIDES (test code = 2232) 52 MG/DL HDL CHOLESTEROL (test code = 2220) 90 MG/DL CALC LDL CHOL (test code = 2237) 111 MG/DL RISK RATIO LDL/HDL (test cod e = 2238) 1.23 RATIO Delfino OrtaCBC W/AUTO [id number] 00:00:00* Test Item Value Reference Range Interpretation [...] code = 1016) (NOTE) Delfino OrtaCOMPREHENSIVE METABOLIC [id number] 00:00:00* Test Item Value Reference Range Interpretation Comme nts GLUCOSE (test code = 2217) 88 MG/DL BUN (test code = 2208) 24 MG/DL CREATININE (test code = 2214) 0.94 MG/DL eGFR AMER. (test cod e = 67322) 80 ML/MIN/1.73 eGFR NON- AMER. (test code = 58157) 69 ML/MIN/1.73 CALC BUN/CREAT (test code = [...] code = 2219) 10 U/L Delfino OrtaLIPID [id number] 00:00:00* Test Item Value Reference Range Interpretation Comme nts CHOLESTEROL (test code = 2210) 211 MG/DL TRIGLYCERIDES (test code = 2232) 52 MG/DL HDL CHOLESTEROL (test code = 2220) 90 MG/DL CALC LDL CHOL (test code = 2237) 111 MG/DL RISK RATIO LDL/HDL (test cod e = 2238) 1.23 RATIO Delfino Schumacher YouCBC W/AUTO [id number] 00:00:00* Test Item Value Reference Range Interpretation [...] = 1016) (NOTE) Delfino Schumacher YouCOMPREHENSIVE METABOLIC [id number] 00:00:00* Test Item Value Reference Range Interpretation Comme nts GLUCOSE (test code = 2217) 88 MG/DL BUN (test code = 2208) 24 MG/DL CREATININE (test code = 2214) 0.94 MG/DL eGFR AMER. (test cod e = 20694) 80 ML/MIN/1.73 eGFR NON- AMER. (test code = 56398) 69 ML/MIN/1.73 CALC BUN/CREAT (test code = [...] (test code = 2219) 10 U/L Delfino Endy NewportLIPID [id number] 00:00:00* Test Item Value Reference Range Interpretation Comme nts CHOLESTEROL (test code = 2210) 211 MG/DL TRIGLYCERIDES (test code = 2232) 52 MG/DL HDL CHOLESTEROL (test code = 2220) 90 MG/DL CALC LDL CHOL (test code = 2237) 111 MG/DL RISK RATIO LDL/HDL (test cod e = 2238) 1.23 RATIO Delfino OrtaCOMPREHENSIVE METABOLIC [id number] 00:00:00* Test Item Value Reference Range Interpretation Comme nts GLUCOSE (test code = 2217) 88 MG/DL BUN (test code = 2208) 24 MG/DL CREATININE (test code = 2214) 0.94 MG/DL eGFR AMER. (test cod e = 86243) 80 ML/MIN/1.73 eGFR NON- AMER. (test code = 77247) 69 ML/MIN/1.73 CALC BUN/CREAT (test code = [...] code = 2219) 10 U/L Delfino OrtaLIPID [id number] 00:00:00* Test Item Value Reference Range Interpretation Comme nts CHOLESTEROL (test code = 2210) 211 MG/DL TRIGLYCERIDES (test code = 2232) 52 MG/DL HDL CHOLESTEROL (test code = 2220) 90 MG/DL CALC LDL CHOL (test code = 2237) 111 MG/DL RISK RATIO LDL/HDL (test cod e = 2238) 1.23 RATIO Delfino Schumacher YouCBC W/AUTO [id number] 00:00:00* Test Item Value Reference Range Interpretation [...] = 1016) (NOTE) Delfino Schumacher YouCOMPREHENSIVE METABOLIC [id number] 00:00:00* Test Item Value Reference Range Interpretation Comme nts GLUCOSE (test code = 2217) 88 MG/DL BUN (test code = 2208) 24 MG/DL CREATININE (test code = 2214) 0.94 MG/DL eGFR AMER. (test cod e = 40394) 80 ML/MIN/1.73 eGFR NON- AMER. (test code = 95628) 69 ML/MIN/1.73 CALC BUN/CREAT (test code = [...] code = 2219) 10 U/L Delfino Schumacher AustinURIC [id number] 00:00:00* Test Item Value Reference Range Interpretation Comme nts URIC ACID (test code = 2233) 7.5 MG/DL Delfino Schumacher AustinVITAMIN D, 25 [id number] 00:00:00* Test Item Value Reference Range Interpretation Comme nts VITAMIN D, 25 OH (test code = 4958) 36 NG/ML Delfino Schumacher AustinURIC [id number] 00:00:00* Test Item Value Reference Range Interpretation Comme nts URIC ACID (test code = 2233) 7.5 MG/DL Delfino Schumacher AustinVITAMIN D, 25 [id number] 00:00:00* Test Item Value Reference Range Interpretation Comme nts VITAMIN D, 25 OH (test code = 4958) 36 NG/ML Delfino Schumacher AustinURIC [id number] 00:00:00* Test Item Value Reference Range Interpretation Comme nts URIC ACID (test code = 2233) 7.5 MG/DL Delfino Schumacher AustinVITAMIN D, 25 [id number] 00:00:00* Test Item Value Reference Range Interpretation Comme nts VITAMIN D, 25 OH (test code = 4958) 36 NG/ML Delfino Schumacher AustinURIC [id number] 00:00:00* Test Item Value Reference Range Interpretation Comme nts URIC ACID (test code = 2233) 7.5 MG/DL Delfino Schumacher AustinVITAMIN D, 25 [id number] 00:00:00* Test Item Value Reference Range Interpretation Comme nts VITAMIN D, 25 OH (test code = 4958) 36 NG/ML Delfino Schumacher AustinURIC [id number] 00:00:00* Test Item Value Reference Range Interpretation Comme nts URIC ACID (test code = 2233) 7.5 MG/DL Delfino Schumacher AustinVITAMIN D, 25 [id number] 00:00:00* Test Item Value Reference Range Interpretation Comme nts VITAMIN D, 25 OH (test code = 4958) 36 NG/ML Delfino Schumacher AustinURIC [id number] 00:00:00* Test Item Value Reference Range Interpretation Comme nts URIC ACID (test code = 2233) 7.5 MG/DL Delfino Schumacher AustinVITAMIN D, 25 [id number] 00:00:00* Test Item Value Reference Range Interpretation Comme nts VITAMIN D, 25 OH (test code = 4958) 36 NG/ML Delfino Schumacher AustinURIC [id number] 00:00:00* Test Item Value Reference Range Interpretation Comme nts URIC ACID (test code = 2233) 7.5 MG/DL Delfino Schumacher AustinVITAMIN D, 25 [id number] 00:00:00* Test Item Value Reference Range Interpretation Comme nts VITAMIN D, 25 OH (test code = 4958) 36 NG/ML Delfino Schumacher AustinURIC [id number] 00:00:00* Test Item Value Reference Range Interpretation Comme nts URIC ACID (test code = 2233) 7.5 MG/DL Delfino Schumacher AustinVITAMIN D, 25 [id number] 00:00:00* Test Item Value Reference Range Interpretation Comme nts VITAMIN D, 25 OH (test code = 4958) 36 NG/ML Delfino Schumacher AustinURIC [id number] 00:00:00* Test Item Value Reference Range Interpretation Comme nts URIC ACID (test code = 2233) 7.5 MG/DL Delfino F AustinVITAMIN D, 25 [id number] 00:00:00* Test Item Value Reference Range Interpretation Comme nts VITAMIN D, 25 OH (test code = 4958) 36 NG/ML Delfino Schumacher AustinURIC [id number] 00:00:00* Test Item Value Reference Range Interpretation Comme nts URIC ACID (test code = 2233) 7.5 MG/DL Delfino Schumacher AustinURIC [id number] 00:00:00* Test Item Value Reference Range Interpretation Comme nts URIC ACID (test code = 2233) 7.5 MG/DL Delfino Schumacher AustinURIC [id number] 00:00:00* Test Item Value Reference Range Interpretation Comme nts URIC ACID (test code = 2233) 7.5 MG/DL VITAMIN D, 25 [id number] 00:00:00* Test Item Value Reference Range Interpretation Comme nts VITAMIN D, 25 OH (test code = 4958) 36 NG/ML URIC [id number] 00:00:00* Test Item Value Reference Range Interpretation Comme nts URIC ACID (test code = 2233) 7.5 MG/DL VITAMIN D, 25 [id number] 00:00:00* Test Item Value Reference Range Interpretation Comme nts VITAMIN D, 25 OH (test code = 4958) 36 NG/ML URIC [id number] 00:00:00* Test Item Value Reference Range Interpretation Comme nts URIC ACID (test code = 2233) 7.5 MG/DL VITAMIN D, 25 [id number] 00:00:00* Test Item Value Reference Range Interpretation Comme nts VITAMIN D, 25 OH (test code = 4958) 36 NG/ML URIC [id number] 00:00:00* Test Item Value Reference Range Interpretation Comme nts URIC ACID (test code = 2233) 7.5 MG/DL VITAMIN D, 25 [id number] 00:00:00* Test Item Value Reference Range Interpretation Comme nts VITAMIN D, 25 OH (test code = 4958) 36 NG/ML VITAMIN D, 25 [id number] 00:00:00* Test Item Value Reference Range Interpretation Comme nts VITAMIN D, 25 OH (test code = 4958) 36 NG/ML Delfino Schumacher [place]URIC [id number] 00:00:00* Test Item Value Reference Range Interpretation Comme nts URIC ACID (test code = 2233) 7.5 MG/DL Delfino Schumacher AustinVITAMIN D, 25 [id number] 00:00:00* Test Item Value Reference Range Interpretation Comme nts VITAMIN D, 25 OH (test code = 4958) 36 NG/ML Delfino Schumacher [place]URIC [id number] 00:00:00* Test Item Value Reference Range Interpretation Comme nts URIC ACID (test code = 2233) 7.5 MG/DL Delfino Schumacher AustinVITAMIN D, 25 [id number] 00:00:00* Test Item Value Reference Range Interpretation Comme nts VITAMIN D, 25 OH (test code = 4958) 36 NG/ML Delfino Schumacher AustinVITAMIN D, 25 [id number] 00:00:00* Test Item Value Reference Range Interpretation Comme nts VITAMIN D, 25 OH (test code = 4958) 36 NG/ML Delfino Schumacher [place]URIC [id number] 00:00:00* Test Item Value Reference Range Interpretation Comme nts URIC ACID (test code = 2233) 7.5 MG/DL Delfino Schumacher AustinVITAMIN D, 25 [id number] 00:00:00* Test Item Value Reference Range Interpretation Comme nts VITAMIN D, 25 OH (test code = 4958) 36 NG/ML Delfino Schumacher [place]URIC [id number] 00:00:00* Test Item Value Reference Range Interpretation Comme nts URIC ACID (test code = 2233) 7.5 MG/DL Delfino Schumacher AustinVITAMIN D, 25 [id number] 00:00:00* Test Item Value Reference Range Interpretation Comme nts VITAMIN D, 25 OH (test code = 4958) 36 NG/ML Delfino OrtaC-REACTIVE [id number] 00:00:00* Test Item Value Reference Range Interpretation Comme nts C-REACTIVE PROTEIN (test cod e = 3513) 0.3 MG/DL Delfino OrtaRHEUMATOID FACTOR, [id number] 00:00:00* Test Item Value Reference Range Interpretation Comme nts RHEUMATOID FACTOR, QUANT (te st code = 3502) <10 IU/ML Delfino Schumacher AustinSEDIMENTATION [id number] 00:00:00* Test Item Value Reference Range Interpretation Comme nts SEDIMENTATION RATE (test cod e = 1017) 117 MM/HOUR Delfino F AustinC-REACTIVE [id number] 00:00:00* Test Item Value Reference Range Interpretation Comme nts C-REACTIVE PROTEIN (test cod e = 3513) 0.3 MG/DL Delfino F AustinRHEUMATOID FACTOR, [id number] 00:00:00* Test Item Value Reference Range Interpretation Comme nts RHEUMATOID FACTOR, QUANT (te st code = 3502) <10 IU/ML Delfino F AustinSEDIMENTATION [id number] 00:00:00* Test Item Value Reference Range Interpretation Comme nts SEDIMENTATION RATE (test cod e = 1017) 117 MM/HOUR Delfino F AustinC-REACTIVE [id number] 00:00:00* Test Item Value Reference Range Interpretation Comme nts C-REACTIVE PROTEIN (test cod e = 3513) 0.3 MG/DL Delfino F AustinRHEUMATOID FACTOR, [id number] 00:00:00* Test Item Value Reference Range Interpretation Comme nts RHEUMATOID FACTOR, QUANT (te st code = 3502) <10 IU/ML Delfino F AustinSEDIMENTATION [id number] 00:00:00* Test Item Value Reference Range Interpretation Comme nts SEDIMENTATION RATE (test cod e = 1017) 117 MM/HOUR Delfino F AustinC-REACTIVE [id number] 00:00:00* Test Item Value Reference Range Interpretation Comme nts C-REACTIVE PROTEIN (test cod e = 3513) 0.3 MG/DL Delfino F AustinRHEUMATOID FACTOR, [id number] 00:00:00* Test Item Value Reference Range Interpretation Comme nts RHEUMATOID FACTOR, QUANT (te st code = 3502) <10 IU/ML Delfino F AustinSEDIMENTATION [id number] 00:00:00* Test Item Value Reference Range Interpretation Comme nts SEDIMENTATION RATE (test cod e = 1017) 117 MM/HOUR Delfino F AustinC-REACTIVE [id number] 00:00:00* Test Item Value Reference Range Interpretation Comme nts C-REACTIVE PROTEIN (test cod e = 3513) 0.3 MG/DL Delfino F AustinRHEUMATOID FACTOR, [id number] 00:00:00* Test Item Value Reference Range Interpretation Comme nts RHEUMATOID FACTOR, QUANT (te st code = 3502) <10 IU/ML Delfino F AustinSEDIMENTATION [id number] 00:00:00* Test Item Value Reference Range Interpretation Comme nts SEDIMENTATION RATE (test cod e = 1017) 117 MM/HOUR Delfino F AustinC-REACTIVE [id number] 00:00:00* Test Item Value Reference Range Interpretation Comme nts C-REACTIVE PROTEIN (test cod e = 3513) 0.3 MG/DL Delfino F AustinRHEUMATOID FACTOR, [id number] 00:00:00* Test Item Value Reference Range Interpretation Comme nts RHEUMATOID FACTOR, QUANT (te st code = 3502) <10 IU/ML Delfino F AustinSEDIMENTATION [id number] 00:00:00* Test Item Value Reference Range Interpretation Comme nts SEDIMENTATION RATE (test cod e = 1017) 117 MM/HOUR Delfino F AustinC-REACTIVE [id number] 00:00:00* Test Item Value Reference Range Interpretation Comme nts C-REACTIVE PROTEIN (test cod e = 3513) 0.3 MG/DL Delfino F AustinRHEUMATOID FACTOR, [id number] 00:00:00* Test Item Value Reference Range Interpretation Comme nts RHEUMATOID FACTOR, QUANT (te st code = 3502) <10 IU/ML Delfino F AustinSEDIMENTATION [id number] 00:00:00* Test Item Value Reference Range Interpretation Comme nts SEDIMENTATION RATE (test cod e = 1017) 117 MM/HOUR Delfino F AustinC-REACTIVE [id number] 00:00:00* Test Item Value Reference Range Interpretation Comme nts C-REACTIVE PROTEIN (test cod e = 3513) 0.3 MG/DL Delfino F AustinRHEUMATOID FACTOR, [id number] 00:00:00* Test Item Value Reference Range Interpretation Comme nts RHEUMATOID FACTOR, QUANT (te st code = 3502) <10 IU/ML Delfino F AustinSEDIMENTATION [id number] 00:00:00* Test Item Value Reference Range Interpretation Comme nts SEDIMENTATION RATE (test cod e = 1017) 117 MM/HOUR Delfino F AustinC-REACTIVE [id number] 00:00:00* Test Item Value Reference Range Interpretation Comme nts C-REACTIVE PROTEIN (test cod e = 3513) 0.3 MG/DL Delfino F AustinRHEUMATOID FACTOR, [id number] 00:00:00* Test Item Value Reference Range Interpretation Comme nts RHEUMATOID FACTOR, QUANT (te st code = 3502) <10 IU/ML Delfino F AustinSEDIMENTATION [id number] 00:00:00* Test Item Value Reference Range Interpretation Comme nts SEDIMENTATION RATE (test cod e = 1017) 117 MM/HOUR Delfino F AustinC-REACTIVE [id number] 00:00:00* Test Item Value Reference Range Interpretation Comme nts C-REACTIVE PROTEIN (test cod e = 3513) 0.3 MG/DL Delfino F C-REACTIVE [id number] 00:00:00* Test Item Value Reference Range Interpretation Comme nts C-REACTIVE PROTEIN (test cod e = 3513) 0.3 MG/DL RHEUMATOID FACTOR, [id number] 00:00:00* Test Item Value Reference Range Interpretation Comme nts RHEUMATOID FACTOR, QUANT (te st code = 3502) <10 IU/ML SEDIMENTATION [id number] 00:00:00* Test Item Value Reference Range Interpretation Comme nts SEDIMENTATION RATE (test cod e = 1017) 117 MM/HOUR C-REACTIVE [id number] 00:00:00* Test Item Value Reference Range Interpretation Comme nts C-REACTIVE PROTEIN (test cod e = 3513) 0.3 MG/DL RHEUMATOID FACTOR, [id number] 00:00:00* Test Item Value Reference Range Interpretation Comme nts RHEUMATOID FACTOR, QUANT (te st code = 3502) <10 IU/ML SEDIMENTATION [id number] 00:00:00* Test Item Value Reference Range Interpretation Comme nts SEDIMENTATION RATE (test cod e = 1017) 117 MM/HOUR C-REACTIVE [id number] 00:00:00* Test Item Value Reference Range Interpretation Comme nts C-REACTIVE PROTEIN (test cod e = 3513) 0.3 MG/DL RHEUMATOID FACTOR, [id number] 00:00:00* Test Item Value Reference Range Interpretation Comme nts RHEUMATOID FACTOR, QUANT (te st code = 3502) <10 IU/ML SEDIMENTATION [id number] 00:00:00* Test Item Value Reference Range Interpretation Comme nts SEDIMENTATION RATE (test cod e = 1017) 117 MM/HOUR C-REACTIVE [id number] 00:00:00* Test Item Value Reference Range Interpretation Comme nts C-REACTIVE PROTEIN (test cod e = 3513) 0.3 MG/DL RHEUMATOID FACTOR, [id number] 00:00:00* Test Item Value Reference Range Interpretation Comme nts RHEUMATOID FACTOR, QUANT (te st code = 3502) <10 IU/ML SEDIMENTATION [id number] 00:00:00* Test Item Value Reference Range Interpretation Comme nts SEDIMENTATION RATE (test cod e = 1017) 117 MM/HOUR RHEUMATOID FACTOR, [id number] 00:00:00* Test Item Value Reference Range Interpretation Comme nts RHEUMATOID FACTOR, QUANT (te st code = 3502) <10 IU/ML Delfino F AustinSEDIMENTATION [id number] 00:00:00* Test Item Value Reference Range Interpretation Comme nts SEDIMENTATION RATE (test cod e = 1017) 117 MM/HOUR Delfino F AustinC-REACTIVE [id number] 00:00:00* Test Item Value Reference Range Interpretation Comme nts C-REACTIVE PROTEIN (test cod e = 3513) 0.3 MG/DL Delfino F AustinRHEUMATOID FACTOR, [id number] 00:00:00* Test Item Value Reference Range Interpretation Comme nts RHEUMATOID FACTOR, QUANT (te st code = 3502) <10 IU/ML Delfino F AustinSEDIMENTATION [id number] 00:00:00* Test Item Value Reference Range Interpretation Comme nts SEDIMENTATION RATE (test cod e = 1017) 117 MM/HOUR Delfino F AustinC-REACTIVE [id number] 00:00:00* Test Item Value Reference Range Interpretation Comme nts C-REACTIVE PROTEIN (test cod e = 3513) 0.3 MG/DL Delfino F AustinC-REACTIVE [id number] 00:00:00* Test Item Value Reference Range Interpretation Comme nts C-REACTIVE PROTEIN (test cod e = 3513) 0.3 MG/DL Delfino F AustinRHEUMATOID FACTOR, [id number] 00:00:00* Test Item Value Reference Range Interpretation Comme nts RHEUMATOID FACTOR, QUANT (te st code = 3502) <10 IU/ML Delfino F AustinSEDIMENTATION [id number] 00:00:00* Test Item Value Reference Range Interpretation Comme nts SEDIMENTATION RATE (test cod e = 1017) 117 MM/HOUR Delfino F AustinRHEUMATOID FACTOR, [id number] 00:00:00* Test Item Value Reference Range Interpretation Comme nts RHEUMATOID FACTOR, QUANT (te st code = 3502) <10 IU/ML Delfino F AustinC-REACTIVE [id number] 00:00:00* Test Item Value Reference Range Interpretation Comme nts C-REACTIVE PROTEIN (test cod e = 3513) 0.3 MG/DL Delfino F AustinRHEUMATOID FACTOR, [id number] 00:00:00* Test Item Value Reference Range Interpretation Comme nts RHEUMATOID FACTOR, QUANT (te st code = 3502) <10 IU/ML Delfino F AustinSEDIMENTATION [id number] 00:00:00* Test Item Value Reference Range Interpretation Comme nts SEDIMENTATION RATE (test cod e = 1017) 117 MM/HOUR Delfino F AustinC-REACTIVE [id number] 00:00:00* Test Item Value Reference Range Interpretation Comme nts C-REACTIVE PROTEIN (test cod e = 3513) 0.3 MG/DL Delfino F AustinSEDIMENTATION [id number] 00:00:00* Test Item Value Reference Range Interpretation Comme nts SEDIMENTATION RATE (test cod e = 1017) 117 MM/HOUR Delfino F AustinRHEUMATOID FACTOR, [id number] 00:00:00* Test Item Value Reference Range Interpretation Comme nts RHEUMATOID FACTOR, QUANT (te st code = 3502) <10 IU/ML Delfino F AustinSEDIMENTATION [id number] 00:00:00* Test Item Value Reference Range Interpretation Comme nts SEDIMENTATION RATE (test cod e = 1017) 117 MM/HOUR Delfino F You Consult Notes Date/Time Note Provider Source 2023-05-19 10:11:14 Associated Order(s): CONSULT CARDIOLOGY [facility] Cardiology Consult PCP: Jt Orta [facility] Date of Service: 05/19/2023 CHIEF COMPLAINT/reason for consult: Troponin elevation HISTORY OF PRESENT ILLNESS This is a 58 years old female with past medical history of HIV, hypertension, hyperlipidemia, possible CAD etc. She came to [facility] due to cough and dyspnea. She was found to have COPD exacerbation. Labs showed troponin elevation and TAIWO. Denies chest pain. No acute EKG changes. Echocardiogram showed hyperdynamic left ventricle with ejection fraction over 65%. Moderate aortic stenosis noted. PAST MEDICAL HISTORY Past Medical History: Diagnosis Date Coronary atherosclerosis of unspecified type of vessel, [place] or graft 02/11/2013 heart attack Genital warts [...] or Shortness of Breath. 8.5 g 0 pehnisnsv-eglhrshr-kjujqsk ala 50-200-25 mg tablet Take 1 tablet [...] injury) Aortic stenosis Coronary artery disease involving [place] coronary artery of [place] heart without angina pectoris COPD exacerbation-continue antibiotics, [...] statins. Continue metoprolol. 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 Possible CAD-she denies coronary intervention. Recommend to [...] be of further assistance. James Stacy MD, FACC, AUSTYN Moisture Tester Division of Cardiovascular Medicine [facility] T [facility] - Health History and Physical Notes Date/Time [...] or Shortness of Breath. 8.5 g 0 zwnslfbfe-apdmbtsx-sztepzf ala 50-200-25 mg tablet Take 1 tablet [...] Coronary atherosclerosis of unspecified type of vessel, [place] or graft 02/11/2013 heart attack Genital warts [...] Q6HPRN, Kvng Roberson DO, 650 mg at 05/16/232016 albuterol (VENTOLIN) inhaler 2 Puff, 2 Puff, Inhalation, Q6HPRN, Lefty Abreu MD amLODIPine (NORVASC) tablet 10 mg, 10 mg, Oral, DAILY, Lefty Abreu MD, 10 mg at 05/16/238 azithromycin (ZITHROMAX) 500 mg in NaCl 0.9% (NS) 250 mL VIAL-MATE IV piggyback, 500 mg, IV Piggyback, Q24H ABX, Kvng Roberson DO, Stopped at 05/16/23 165 cetirizine (ZYRTEC) tablet 10 mg, 10 mg, [...] Q8H, Kvng Roberson DO, 5,000 Units at 05/16/232207 ipratropium-albuteroL (DUONEB) 0.5 mg-3 mg(2.5 mg base)/3 [...] 5 mL, 5 mL, Intravenous, PRN, Anyi Hearn, FACILITY MECHANIC [START ON 05/17/2023] sulfamethoxazole-trimethoprim (BACTRIM DS) 800-160 mg per tablet 1 tablet, 1 tablet, Oral, QMON/SAT/SAT AT 1999, Lefty Abreu MD Objective: Vitals: Vitals: 05/16/23 1612 05/16/23 1624 05/16/23191405/16/232029 BP: 117/69 Pulse: 98 99 Resp: 16 16 18 25 Temp: 37.2 ?C (99 ?F) TempSrc: SpO2: 97% 96% 94% 94% Weight: Height: I/O's: Intake/Output Summary (Last 24 hours) at 05/16/2023 2313 Last data filed at 05/16/2023 1915 Gross per 24 hour Intake 505.31 ml [...] Disposition: Admit to inpatient IM-INTERNAL MEDICINE STAFF [facility]
[2024-02-20] MEDS ORDERED: METHYLPREDNISOLONE 40 MG INJ ONE (14:08)
[2024-02-20] MEDS ORDERED: IPRATROPIUM BROM 0.5MG/2.5ML ONE (14:08)
[2024-02-20] MEDS ORDERED: ALBUTEROL 2.5 MG/3 ML NEB SOL ONE (14:08)
[2024-02-20 14:30] LABS: SARS-CoV-2 Antigen CONTROL BLUE LINE VIS/BG OK; SARS-CoV-2 Antigen Rapid Res Negative (Negative)
--- NOTE | 2024-02-20 14:57 | RAD REPORT ---
EXAMINATION: ONE VIEW CHEST XR CLINICAL INDICATION: SOB TECHNIQUE: Frontal chest projection is submitted. Examination is limited by patient positioning and t echnique. COMPARISON: 07/15/2023 FINDINGS: Chronic thickening of the pulmonary interstitial noted. Trace right pleural effusion. Underlying COPD likely present. No focal infiltrate suspicious for pneumonia is seen. The heart is upper limit of normal in size. No displaced fractures identified.
[2024-02-20 15:02] LABS: Absolute Basophils 0.1 K/uL (0-0.5); Absolute Lymphocytes (CBC) 1.4 K/uL (0.7-4.9); Absolute Monocytes 0.5 K/uL (0.1-1.3); Basophils % 1.1 % (0-1.3); Eosinophils % 0.3 % (0-4.4); Hematocrit 40.8 % (36.0-45.0); Hemoglobin 13.6 g/dL (12.0-15.0); Lymphocytes % 19.9 % (15.3-44.8); MCH 35.5 pg (27.0-35.0); MCHC 33.4 g/dL (32.0-36.0); MCV 106.1 fL (80-100); MPV 9.3 fL (7.6-11.3); Monocytes % 7.2 % (3.3-12.3); Neutrophils % 71.5 % (41.7-73.7); Nucleated Red Blood Cells % 0.1 % (0-0); Platelets 205 thou/uL (152-406); RBC Red Blood Cell Count 3.84 M/uL (3.86-4.86); Red Cell Distribution Width 15.5 % (12.1-15.2)
[2024-02-20 15:12] LABS: Blood Morphology Comment NOTED (NOT SEEN); Macrocytosis 1+; Platelet Estimate ADEQ; White Blood Cell Scan OK (OK)
[2024-02-20 15:24] LABS: Albumin 3.6 g/dL (3.4-5.0); Albumin/Globulin Ratio 0.7 (1.1-1.8); Bilirubin Direct 0.3 mg/dL (0-0.2); Bilirubin Indirect, Calculated 0.7 mg/dL (0.2-0.8); Globulin 5.2 g/dL (2.3-3.5); Magnesium 1.8 mg/dL (1.6-2.4); Protein, Total 8.8 g/dL (6.4-8.2)
[2024-02-20 15:28] LABS: Protime INR 1.07
[2024-02-20 15:29] LABS: Troponin High Sensitivity 208.1 pg/mL (<58.9)
[2024-02-20] MEDS ORDERED: FUROSEMIDE 20 MG/ 2ML VIAL ONE (15:49)
[2024-02-20] MEDS ORDERED: ASPIRIN 81 MG CHEWABLE TABLET ONE (15:49)
[2024-02-20] MEDS ORDERED: POTASSIUM 25 MEQ EFFERV TAB ONE (15:49)
[2024-02-20] MEDS ORDERED: MORPHINE 2 MG/ML SYR ONE (15:49)
[2024-02-20] MEDS ORDERED: ENOXAPARIN 80 MG/0.8 ML SQ ONE (16:18)
--- NOTE | 2024-02-20 16:21 | EDPHYS ---
Physician Documentation [facility] Name: Charito Michael Age: 58 yrs Sex: Female : 1965 Arrival Date: 02/20/2024 Time: 13:07 Bed 17 Private MD: ED Physician Ac Nixon HPI: 02/19 13:35 This 58 yrs old Black Female presents to ER via EMS with complaints of Breathing cp Difficulty. 13:35 The patient has shortness of breath at rest. cp 13:35 Onset: The symptoms/episode began/occurred at an unknown time. cp 13:35 Duration: The symptoms are continuous, but are steadily getting better. Associated cp signs and symptoms: Pertinent positives: chest pain, Pertinent negatives: productive cough, fever, vomiting. Severity of symptoms: in the emergency department the symptoms have improved mildly. Historical: - Allergies: 13:17 NKA; ap3 - PMHx: 13:17 Back pain; CHF; Chronic pain; COPD; HIV; Hypercholesterolemia; Hypertension; seasonal ap3 allergies; - PSHx: 13:17 Total abdominal hysterectomy; ap3 - Immunization history:: Client reports receiving the 2nd dose of the Covid vaccine, Flu vaccine is up to date. - Infectious Disease History:: Denies. - Social history:: Smoking status: Patient denies any tobacco usage or history of. ROS: 13:40 Respiratory: Positive for shortness of breath, at rest. cp 13:40 Cardiovascular: Positive for chest pain, cp 13:40 Eyes: Negative for injury, pain, redness, and discharge, cp 13:40 Constitutional: Negative for body aches, chills, fever, poor PO intake, 13:40 ENT: Negative for drainage from ear(s), ear pain, sore throat, difficulty swallowing, difficulty handling secretions, 13:40 Abdomen/GI: Negative for abdominal pain, vomiting, diarrhea, constipation, 13:40 Neuro: Negative for altered mental status, dizziness, headache, numbness, weakness, 13:40 All other systems are negative, Exam: 13:44 Head/Face: Normocephalic, atraumatic. cp 13:44 Constitutional: The patient appears in no acute distress, alert, awake, non-diaphoretic, non-toxic, well developed, well nourished, 13:44 Chest/axilla: Inspection: normal, 13:44 Respiratory: the patient does not display signs of respiratory distress, Respirations: normal, no use of accessory muscles, no retractions, labored breathing, is not present, Breath sounds: bronchial sounds, that are mild, are heard diffusely, decreased breath sounds, that are mild, throughout, wheezing: is not appreciated, 13:44 Abdomen/GI: Inspection: abdomen appears normal, Palpation: abdomen is soft and non-tender, in all quadrants, 13:45 Cardiovascular: Rate: normal, Rhythm: regular, Edema: is not appreciated, JVD: is not cp appreciated, 13:45 Back: pain, is absent, ROM is normal, 13:45 Neuro: Orientation: no acute changes, per EMS, Mentation: no acute changes, per EMS, Motor: moves all fours, no focal deficits, 14:17 ECG was reviewed by the Attending Physician. cp Vital Signs: 13:19 Weight 68.04 kg; Height 5 ft. 3 in. ; ap3 14:00 BP 145 / 69; Pulse 86; Resp 22; Pulse Ox 77% on R/A; Weight 68.04 kg; Height 5 ft. 3 ss in. ; Pain 5/10; 14:01 Pulse Ox 87% on 3 lpm NC; ss 14:30 BP 138 / 79; Pulse 84; Resp 16; Pulse Ox 95% on 3 lpm NC; ko1 16:20 BP 150 / 84; Pulse 80; Resp 15; Pulse Ox 95% on 3 lpm NC; ko1 17:50 BP 143 / 95; Pulse 82; Resp 15; Pulse Ox 96% on 3 lpm NC; ko1 14:00 Body Mass Index 26.57 (68.04 kg, 160.02 cm) ss 14:00 Pain Scale: Adult ss MDM: 13:24 Medical Screening Exam initiated cp 14:00 Differential diagnosis: CHF exacerbation, Chronic Obstructive Pulmonary Disease cp pneumonia, Pneumothorax pulmonary edema, Pulmonary Embolism Unstable Angina non STEMI, ST Elevated WA. 14:00 Management of patient was discussed with the following: Hospitalist: will admit after cp discussion. Independent interpretation of the following test(s) in the Emergency Department EKG: See my EKG interpretation above. Care significantly affected by the following chronic conditions: Hypertension, Congestive Heart Failure, Chronic Obstructive Pulmonary Disease, HIV. Counseling: I had a detailed discussion with the patient and/or guardian regarding the historical points, exam findings, and any diagnostic results supporting the discharge/admit diagnosis, lab results, radiology results, the need for further work-up and treatment in the hospital. Response to treatment: the patient's symptoms have mildly improved after treatment. 16:15 Data reviewed: vital signs, nurses notes, lab test result(s), EKG, radiologic studies, cp plain films, I have discussed the patient's presentation/case with the attending Emergency Department Physician; and as a result, I will admit patient. 02/19 13:32 Order name: Basic Metabolic Panel; Complete Time: 15:32 cp 02/19 15:32 Interpretation: Normal except: K 3.0; CL 111; BUN 27; CRE 1.59; GFR 37. cp 02/19 13:32 Order name: CBC with Diff; Complete Time: 15:32 cp 02/19 13:32 Order name: LFT's; Complete Time: 15:32 cp 02/19 13:32 Order name: Magnesium; Complete Time: 15:32 cp 02/19 13:32 Order name: NT PRO-BNP; Complete Time: 15:32 cp 02/19 13:32 Order name: PT-INR; Complete Time: 15:32 cp 02/19 13:32 Order name: Troponin HS; Complete Time: 15:32 cp 02/19 15:33 Interpretation: Abnormal: Troponin HS 208.1; Reviewed. cp 02/19 13:32 Order name: SARS RAPID; Complete Time: 14:58 cp 02/19 13:32 Order name: Influenza Screen (a \T\ B); Complete Time: 14:58 cp 02/19 15:12 Order name: CBC Smear Scan; Complete Time: 15:32 EDIL 02/19 17:12 Order name: T4 Free EDIL 02/19 17:12 Order name: Thyroid Stimulating Hormone EDIL 02/19 17:12 Order name: Basic Metabolic Panel EDIL 02/19 17:12 Order name: Basic Metabolic Panel EDIL 02/19 17:12 Order name: Basic Metabolic Panel EDIL 02/19 17:12 Order name: Basic Metabolic Panel EDIL 02/19 17:12 Order name: Basic Metabolic Panel EDIL 02/19 17:12 Order name: Basic Metabolic Panel EDIL 02/19 17:12 Order name: CBC with Automated Diff EDIL 02/19 17:12 Order name: CBC with Automated Diff EDIL 02/19 17:12 Order name: Urinalysis w/ reflexes EDMS 02/19 17:12 Order name: CBC with Automated Diff EDMS 02/19 17:12 Order name: CBC with Automated Diff EDMS 02/19 17:12 Order name: CBC with Automated Diff EDMS 02/19 17:13 Order name: CBC with Automated Diff EDMS 02/19 17:13 Order name: Hemoglobin A1c EDMS 02/19 17:13 Order name: Hemoglobin A1c EDMS 02/19 17:13 Order name: Lipid Profile EDMS 02/19 17:13 Order name: Lipid Profile EDMS 02/19 17:13 Order name: Magnesium EDMS 02/19 17:13 Order name: Magnesium EDMS 02/19 17:13 Order name: Magnesium EDMS 02/19 17:13 Order name: Magnesium EDMS 02/19 17:13 Order name: Magnesium EDMS 02/19 17:13 Order name: Magnesium EDMS 02/19 17:13 Order name: Phosphorus EDMS 02/19 17:13 Order name: Phosphorus EDMS 02/19 17:13 Order name: Phosphorus EDMS 02/19 17:13 Order name: Phosphorus EDMS 02/19 17:13 Order name: Phosphorus EDMS 02/19 17:13 Order name: Phosphorus EDMS 02/19 17:13 Order name: Troponin High Sensitivity EDMS 02/19 17:13 Order name: Troponin High Sensitivity EDMS 02/19 17:13 Order name: Troponin High Sensitivity EDMS 02/19 13:32 Order name: XRAY Chest (1 view); Complete Time: 14:58 cp 02/19 14:58 Interpretation: Report review. cp 02/19 17:12 Order name: Echo with Doppler EDMS 02/19 13:32 Order name: Cardiac monitoring; Complete Time: 14:03 cp 02/19 13:32 Order name: EKG - Nurse/Tech; Complete Time: 14:13 cp 02/19 13:32 Order name: IV Saline Lock; Complete Time: 14:53 cp 02/19 13:32 Order name: Labs collected and sent; Complete Time: 14:53 cp 02/19 13:32 Order name: O2 Per Protocol; Complete Time: 14:03 cp 02/19 13:32 Order name: O2 Sat Monitoring; Complete Time: 14:03 cp EC:17 Rate is 84 beats/min. Rhythm is regular. PA interval is normal. QRS interval is normal. cp QT interval is normal. T waves are Inverted in leads II, V5, V6. Interpreted by me. Reviewed by me. Administered Medications: 14:10 Drug: DuoNeb Nebulize (2.5 mg - 0.5 mg) 3 ml Nebulizer once Route: Nebulizer; ko1 15:03 Follow up: Response: No adverse reaction ko1 14:53 Drug: MethylPrednisoLONE IVP 80 mg IVP once Route: IVP; Site: right antecubital; ko1 15:08 Follow up: Response: No adverse reaction ko1 15:54 Drug: Aspirin PO Chewable Tablet 324 mg PO once; 81 mg tablets x 4 Route: PO; ko1 16:24 Follow up: Response: No adverse reaction ko1 15:54 Drug: Potassium PO Effervescent Tablet 50 mEq PO once; dissolve in 4 ounces of water or ko1 juice Route: PO; 16:24 Follow up: Response: No adverse reaction ko1 15:55 Drug: Furosemide IVP 20 mg IVP once; give over 2 minutes Route: IVP; Site: right ko1 antecubital; 16:10 Follow up: Response: No adverse reaction ko1 15:59 Drug: morphine IVP or IV 2 mg IVP once over 4 mins; if having chest pain Route: IVP; ko1 Infused Over: 4 mins; Site: right antecubital; 16:16 Follow up: Response: No adverse reaction ko1 16:19 Drug: Enoxaparin Sub-Q 1 mg/kg Sub-Q once Route: Sub-Q; Site: left lower abdomen; ko1 16:49 Follow up: Response: No adverse reaction ko1 Disposition: 02/20 14:01 Critical Care:. cp Disposition Summary: 02/20/24 16:20 Hospitalization Ordered Notes: Hospitalization Status: Inpatient Admission cp Provider: Manuel Beck cp Location: Telemetry/MedSurg (Inpatient) cp Condition: Stable cp Problem: new cp Symptoms: have improved cp Bed/Room Type: Standard cp Room Assignment: 212(02/20/24 17:24) em1 Diagnosis - Subsequent non-ST elevation (NSTEMI) myocardial infarction cp - COPD/ Chronic obstructive pulmonary disease with (acute) exacerbation cp - Hypokalemia cp Forms: - Medication Reconciliation Form cp - SBAR form cp - Leadership Thank You Letter cp Critical care time excluding procedures: 14:01 Critical care time: Bedside Care: 6 minutes, Consultation: 20 minutes, Family cp Intervention: 8 minutes. Total time: 34 minutes Addendum: 02/23/2024 10:02 Co-signature as Attending Physician, Ac Nixon MD I reviewed the patient's care r n provided by the Advanced Practice Provider and agree with the diagnosis and treatment plan. Signatures: Dispatcher [employer] EDMS Ac Nixon MD MD rn Victor M Abraham em1 Chi Holder PA PA cp Chichi Garduno RN RN ap3 Charity Mays, RN RN ko1 Corrections: (The following items were deleted from the chart) 02/19 13:33 13:33 BASIC METABOLIC PANEL+C.LAB.BRZ ordered. EDMS EDMS 13:33 13:33 CBC+H.LAB.BRZ ordered. EDMS EDMS 13:33 13:33 HEPATIC FUNCTION+C.LAB.BRZ ordered. EDMS EDMS 13:33 13:33 MAGNESIUM+C.LAB.BRZ ordered. EDMS EDMS 13:33 13:33 PROBNP+C.LAB.BRZ ordered. EDMS EDMS 13:33 13:33 PROTIME (+INR)+COAG.LAB.BRZ ordered. EDMS EDMS 13:33 13:33 Troponin High Sensitivity+C.LAB.BRZ ordered. EDMS EDMS 13:33 13:33 Chest Single View+RAD.RAD.BRZ ordered. EDMS EDMS 13:33 13:33 SARS-COV-2 Antigen Rapid+I.LAB.BRZ ordered. EDMS EDMS 13:33 13:33 Influenza Screen (A \T\ B)+BA.LAB.BRZ ordered. EDMS EDMS 15:33 15:33 Reviewed. cp cp 17:24 16:20 cp em1
--- NOTE | 2024-02-20 16:21 | ER ---
Nurse's Notes [facility] Name: Charito Michael Age: 58 yrs Sex: Female : 1965 Arrival Date: 02/20/2024 Time: 13:07 Bed 17 Private MD: Diagnosis: Subsequent non-ST elevation (NSTEMI) myocardial infarction;COPD/ Chronic obstructive pulmonary disease with (acute) exacerbation;Hypokalemia Presentation: 02/19 13:14 Chief complaint: EMS states: patient called them for difficulty breathing. They report ap3 a room air reading of 80% SpO2 on their arrival, which increased to 96% on 4liters. Patient states she does wear home oxygen, but has ran out of her inhaler. Coronavirus screen: At this time, the client does not indicate any symptoms associated with coronavirus-19. Ebola Screen: No symptoms or risks identified at this time. Risk Assessment: Do you want to hurt yourself or someone else? Patient reports no desire to harm self or others. Onset of symptoms was February 20, 2024. 13:14 Method Of Arrival: EMS: [facility] ap3 14:00 Initial Sepsis Screen: Does the patient meet any 2 criteria? No. Patient's initial ss sepsis screen is negative. Does the patient have a suspected source of infection? No. Patient's initial sepsis screen is negative. 14:00 Acuity: GIULIANO 2 ss Triage Assessment: 13:17 General: Appears in no apparent distress. Behavior is calm, cooperative, appropriate ap3 for age. Pain: Complains of pain in back Is chronic. Neuro: Level of Consciousness is awake, alert, obeys commands, Oriented to person, place, time, situation, Appropriate for age. Cardiovascular: Patient's skin is warm and dry. Respiratory: Airway is patent Respiratory effort is even, unlabored. Historical: - Allergies: 13:17 NKA; ap3 - PMHx: 13:17 Back pain; CHF; Chronic pain; COPD; HIV; Hypercholesterolemia; Hypertension; seasonal ap3 allergies; - PSHx: 13:17 Total abdominal hysterectomy; ap3 - Immunization history:: Client reports receiving the 2nd dose of the Covid vaccine, Flu vaccine is up to date. - Infectious Disease History:: Denies. - Social history:: Smoking status: Patient denies any tobacco usage or history of. Screenin:30 [facility] ED Fall Risk Assessment (Adult) History of falling in the last 3 months, ko1 including since admission No falls in past 3 months (0 pts) Confusion or Disorientation No (0 pts) Intoxicated or Sedated No (0 pts) Impaired Gait Yes (1 pt) Mobility Assist Device Used Yes (1 pt) Altered Elimination No (0 pt) Score/Fall Risk Level 0 - 2 = Low Risk Oriented to surroundings, Maintained a safe environment, Educated pt \T\ family on fall prevention, incl call for assistance when getting out of bed, Assessed \T\ reinforced patient's understanding of fall precautions, Hourly rounding (assess needs \T\ fall precautionary measures) done. Abuse screen: Denies threats or abuse. Denies injuries from another. Nutritional screening: No deficits noted. Tuberculosis screening: No symptoms or risk factors identified. Assessment: 14:00 General: Appears in no apparent distress. Behavior is calm, cooperative, appropriate ko1 for age. Pain: Complains of pain in back. Neuro: No deficits noted. Cardiovascular: No deficits noted. Reports shortness of breath. Respiratory: No deficits noted. Reports shortness of breath at rest on exertion. GI: No deficits noted. No signs and/or symptoms were reported involving the gastrointestinal system. : No deficits noted. No signs and/or symptoms were reported regarding the genitourinary system. EENT: No deficits noted. No signs and/or symptoms were reported regarding the EENT system. Derm: No deficits noted. No signs and/or symptoms reported regarding the dermatologic system. Musculoskeletal: No deficits noted. No signs and/or symptoms reported regarding the musculoskeletal system. Vital Signs: 13:19 Weight 68.04 kg; Height 5 ft. 3 in. ; ap3 14:00 BP 145 / 69; Pulse 86; Resp 22; Pulse Ox 77% on R/A; Weight 68.04 kg; Height 5 ft. 3 ss in. ; Pain 5/10; 14:01 Pulse Ox 87% on 3 lpm NC; ss 14:30 BP 138 / 79; Pulse 84; Resp 16; Pulse Ox 95% on 3 lpm NC; ko1 16:20 BP 150 / 84; Pulse 80; Resp 15; Pulse Ox 95% on 3 lpm NC; ko1 17:50 BP 143 / 95; Pulse 82; Resp 15; Pulse Ox 96% on 3 lpm NC; ko1 14:00 Body Mass Index 26.57 (68.04 kg, 160.02 cm) ss 14:00 Pain Scale: Adult ss ED Course: 13:10 Patient arrived in ED. em1 13:24 Chi Holder PA is PHCP. cp 13:24 Ac Nixon MD is Attending Physician. cp 13:41 Influenza Screen (a \T\ B) Sent. ap3 13:41 SARS RAPID Sent. ap3 14:01 Triage completed. ss 14:01 Arm band placed on right wrist. ss 14:02 Charity Mays, HALLE is Primary Nurse. ko1 14:30 Initial lab(s) drawn, by me, sent to lab. EKG done, by ED staff, reviewed by Chi [email or web address] TONY COVID swab sent to lab. Flu and/or RSV swab sent to lab. Initial Neb Treatment Given as ordered Patient was instructed and evaluated on procedure Patient tolerated procedure well without adverse effect. Inserted saline lock: 22 gauge in right antecubital area, using aseptic technique. Blood collected. Flushed with 10 mL NS. 14:30 Patient has correct armband on for positive identification. Bed in low position. Call ko1 light in reach. Side rails up X2. Provided Education on: meds, labs. Pulse ox on. NIBP on. Door closed. Noise minimized. Lights dimmed. Warm blanket given. Pillow given. 14:50 XRAY Chest (1 view) In Process Unspecified. EDMS 14:53 Basic Metabolic Panel Sent. ko1 14:54 CBC with Diff Sent. ko1 14:54 LFT's Sent. ko1 14:54 Magnesium Sent. ko1 14:54 NT PRO-BNP Sent. ko1 14:54 PT-INR Sent. ko1 14:54 Troponin HS Sent. ko1 16:20 Manuel Beck is Hospitalizing Provider. cp 16:20 No provider procedures requiring assistance completed. Patient admitted, IV remains in ko1 place. Administered Medications: 14:10 Drug: DuoNeb Nebulize (2.5 mg - 0.5 mg) 3 ml Nebulizer once Route: Nebulizer; ko1 15:03 Follow up: Response: No adverse reaction ko1 14:53 Drug: MethylPrednisoLONE IVP 80 mg IVP once Route: IVP; Site: right antecubital; ko1 15:08 Follow up: Response: No adverse reaction ko1 15:54 Drug: Aspirin PO Chewable Tablet 324 mg PO once; 81 mg tablets x 4 Route: PO; ko1 16:24 Follow up: Response: No adverse reaction ko1 15:54 Drug: Potassium PO Effervescent Tablet 50 mEq PO once; dissolve in 4 ounces of water or ko1 juice Route: PO; 16:24 Follow up: Response: No adverse reaction ko1 15:55 Drug: Furosemide IVP 20 mg IVP once; give over 2 minutes Route: IVP; Site: right ko1 antecubital; 16:10 Follow up: Response: No adverse reaction ko1 15:59 Drug: morphine IVP or IV 2 mg IVP once over 4 mins; if having chest pain Route: IVP; ko1 Infused Over: 4 mins; Site: right antecubital; 16:16 Follow up: Response: No adverse reaction ko1 16:19 Drug: Enoxaparin Sub-Q 1 mg/kg Sub-Q once Route: Sub-Q; Site: left lower abdomen; ko1 16:49 Follow up: Response: No adverse reaction ko1 Medication: 14:30 VIS not applicable for this client. ko1 Outcome: 16:20 Decision to Hospitalize by Provider. cp 16:55 Condition: stable ko1 16:55 Instructed on the need for admit, 18:47 Admitted to Tele accompanied by tech, via stretcher, room 212, with chart, ko1 18:48 Patient left the ED. ko1 Signatures: Dispatcher [employer] Victor M Starkey em1 Ashlee Stock RN RN ss Chi Holder PA PA Chichi Orlando RN RN ap3 Charity Mays RN RN ko1
[2024-02-20] MEDS ORDERED: ACETAMINOPHEN 325 MG TABLET PO PRN (17:01)
[2024-02-20] MEDS ORDERED: HYDRALAZINE HCL 20 MG/ML VIAL IV PRN (17:11)
--- NOTE | 2024-02-20 17:19 | P.HP ---
Certification for Inpatient Patient admitted to: Observation With expected LOS: <2 Midnights Patient will require the following post-hospital care: None Practitioner: I am a practitioner with admitting privileges, knowledge of patient current condition, hospital course, and medical plan of care. Services: Services provided to patient in accordance with Admission requirements found in Title 42 Section 412.3 of the Code of Federal Regulations Patient History Date of Service: 02/20/24 Reason for admission: NSTEMI History of Present Illness: Charito Michael is a 58 year old female with PMHX Back pain, CHF, Chronic pain, COPD on 4 LNC, HIV, PCP pneumonia, Hypercholesterolemia, Hypertension, CAD with stent, seasonal allergies who presents to the ED with chief complaint of chest pressure and heart palpitations. She reports the chest pressure started this morning when she woke up this morning. She denies heart history for herself and her family, she is not a good historian. On examination, she is in no acute distress, reports chest pressure has resolved with the aspirin, lungs sounds clear, hemodynamically stable. Laboratory evaluation is significant for potassium 3.0, BUN/creatinine 27/1.59, GFR 37, troponin 208.1, BNP 2858. Initial vitals BP 145 / 69; Pulse 86; Resp 22; Pulse Ox 77% on R/A. Chest x-ray reports "Chronic thickening of the pulm onary interstitial noted. Trace right pleural effusion. Underlying COPD likely present. No focal infiltrate suspicious for pneumonia is seen. The heart is upper limit of normal in size. No displaced fractures identified." Charito will be admitted to hospitalist service for further treatment of NSTEMI, Dr. Armstrong consulted. Allergies No Known Drug Allergies Allergy (Verified 11/01/15 11:29) Unknown NKA Allergy (Uncoded 03/07/16 13:58) Unknown No Known Allergies Allergy (Uncoded 03/06/16 14:51) Unknown Home Medications: Amitriptyline HCl 1 tab PO BEDTIME 11/02/15 ALPRAZolam [Xanax*] 1 mg PO TID 01/11/18 Fluticasone [Flovent Hfa 110*] 2 sprays IH BID 01/11/18 Gabapentin 100 mg PO TID 01/11/18 Ibuprofen [Ibu] 600 mg PO Q6H PRN 01/11/18 Nystatin 5 ml PO QID 01/11/18 Zolpidem Tartrate 10 mg PO BEDTIME PRN 01/11/18 Atorvastatin Calcium [Lipitor] 40 mg PO DAILY #30 tablet 01/15/18 Vancomycin HCl [Vancocin HCl] 250 mg PO Q6H 7 Days 10/28/21 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 -: safety pin removal from right lung Psychosocial/ Personal History: Pt lives at home alone - Family History Father -: Heart disease Notes: of [place] Sister -: Heart disease Notes: of [place] - Social History Smoking Status: Never smoker Alcohol use: No CD- Drugs: No Caffeine use: Yes Review of Systems Cardiovascular: Chest Pain (pressure), Palpitations Physical Examination - Physical Exam General: Alert, In no apparent distress, Oriented x3 HEENT: Atraumatic, Normocephalic, PERRLA Neck: Supple, 2+ carotid pulse no bruit Respiratory: Clear to auscultation bilaterally, Normal air movement Cardiovascular: No edema, Normal pulses, Regular rate/rhythm, Normal S1 S2 Capillary refill: <2 Seconds Gastrointestinal: Normal bowel sounds, Soft and benign Musculoskeletal: No clubbing Integumentary: No rashes Neurological: Normal speech, Normal tone - Studies Laboratory Data (last 24 hrs) 02/20/24 02/20/24 02/20/24 14:45 14:45 14:45 WBC 7.00 Hgb 13.6 Hct 40.8 Plt Count 205 PT 12.0 INR 1.07 Sodium 144 Potassium 3.0 L BUN 27 H Creatinine 1.59 H Glucose 104 Magnesium 1.8 Total Bilirubin 1.0 AST 27 ALT 31 Alkaline Phosphatase 94 Microbiology Data (last 24 hrs): 02/20/24 13:40 Nasopharnyx Influenza Type A Antigen Screen - Final 02/20/24 13:40 Nasopharnyx Influenza Type B Antigen Screen - Final Assessment and Plan - Plan Assessment and plan NSTEMI with chest pressure History of CAD with stent History of chronic diastolic CHF - EKG: Inverted T waves at aVF, ii, V4 - troponin 208.1 , Serial pending - Ordered transthoracic echocardiogram - Chest x-ray reports "Chronic thickening of the pulmonary interstitial noted. Trace right pleural effusion. Underlying COPD likely present. No focal infiltrate suspicious for pneumonia is seen. The heart is upper limit of normal in size. No displaced fractures identified." - Consult Cardiology -n.p.o. at midnight, heart cath in the a.m. - S/P aspirin 324 mg PO x 1 in ED - Start daily baby aspirin and statin - Symptom control with PRN acetaminophen, nitroglycerin, morphine -continuous telemetry -TSH/FreeT4, A1C, lipid panel pending TAIWO -BUN and creatinine 27 and 1.59, GFR 37 -Monitor in a.m. labs, Lasix given in the ED COPD on 4 L nasal cannula Right Pleural effusion -Chest x-ray reports "Chronic thickening of the pulmonary interstitial noted. Trace right pleural effusion. Underlying COPD likely present. No focal infiltrate suspicious for pneumonia is seen. The heart is upper limit of normal in size. No displaced fractures identified." -Lasix given in the ED History of PCP pneumonia HIV Chronic pain Hypertension Hypercholesterolemia -Continue home medications DVT PPx Lovenox then heparin drip due to kidney function Full code 24-hour OBS Discharge Plan: Home Plan to discharge in: 24 Hours - Advance Directives Does patient have a Living Will: No Does patient have a Durable POA for Healthcare: No
[2024-02-20] MEDS: NA CHLORIDE 0.9% 1,000 ML IV SCH (18:00)
[2024-02-20 20:14] VITALS: BMI 23.6
[2024-02-20] MEDS: ATORVASTATIN 40 MG TAB PO SCH (21:15)
[2024-02-20] MEDS: HEPARIN/D5W 25,000 UNIT/500 ML BAG IV ONE (21:46)
[2024-02-20 23:15] LABS: Specific Gravity 1.009 (1.005-1.030); Sqamous Epithelial <5 /HPF (None Seen); Urine Bacteria None Seen /HPF (<20); Urine Bilirubin NEGATIVE (Negative); Urine Blood 1+ (Negative); Urine Clarity Turbid (Clear); Urine Color Colorless (Yellow); Urine Culture Reflex Order NOT NEEDED; Urine Glucose NEGATIVE (Negative); Urine Ketones NEGATIVE (Negative); Urine Microscopic Reflex YN ORDER UMIC; Urine Mucus Slight /HPF (None Seen); Urine Nitrite NEGATIVE (Negative); Urine Protein NEGATIVE (Negative); Urine Urobilinogen Normal (Normal); Urine WBC <5 /HPF (<5)
[2024-02-21] MEDS: HEPARIN/D5W 25,000 UNIT/500 ML BAG IV SCH (00:44)
[2024-02-21 04:38] LABS: Absolute Lymphocytes (CBC) 0.5 K/uL (0.7-4.9); Absolute Monocytes 0.2 K/uL (0.1-1.3); Absolute Neutrophil 2.7 K/uL (1.8-8.0); Basophils % 0.4 % (0-1.3); Hematocrit 37.5 % (36.0-45.0); Hemoglobin 12.7 g/dL (12.0-15.0); MCH 36.3 pg (27.0-35.0); MCV 106.9 fL (80-100); MPV 9.1 fL (7.6-11.3); Monocytes % 6.1 % (3.3-12.3); Neutrophils % 78.5 % (41.7-73.7); Nucleated Red Blood Cells % 0.2 % (0-0); Platelets 199 thou/uL (152-406); RBC Red Blood Cell Count 3.51 M/uL (3.86-4.86); Red Cell Distribution Width 15.1 % (12.1-15.2)
[2024-02-21 05:04] LABS: Anion Gap 9.4 mEq/L (5.0-15.0); Magnesium 1.7 mg/dL (1.6-2.4); Phosphorus 2.5 mg/dL (2.5-4.9); Potassium 3.4 mEq/L (3.5-5.1); Thyroid Stimulating Hormone 0.485 uIU/mL (0.358-3.740)
[2024-02-21] MEDS ORDERED: POTASS/SODIUM PHOSPHATE 1 PKT POWD.PACK PO SCH (08:00)
--- NOTE | 2024-02-21 10:18 | P.CNS ---
Date of Consult: 02/21/24 Chief Complaint: NSTEMI History of Present Illness: Patient with PMH of CAD, PCI, COPD on home oxygen, presented with chest pain that started yesterday, pressure in nature, left sided, denies any other cardiac symptoms, no palpitations, no syncope. Allergies No Known Drug Allergies Allergy (Verified 11/01/15 11:29) Unknown NKA Allergy (Uncoded 03/07/16 13:58) Unknown No Known Allergies Allergy (Uncoded 03/06/16 14:51) Unknown Home medications list reviewed: Yes Home Medications: Amitriptyline HCl 1 tab PO BEDTIME 11/02/15 ALPRAZolam [Xanax*] 1 mg PO TID 01/11/18 Fluticasone [Flovent Hfa 110*] 2 sprays IH BID 01/11/18 Gabapentin 100 mg PO TID 01/11/18 Ibuprofen [Ibu] 600 mg PO Q6H PRN 01/11/18 Nystatin 5 ml PO QID 01/11/18 Zolpidem Tartrate 10 mg PO BEDTIME PRN 01/11/18 Atorvastatin Calcium [Lipitor] 40 mg PO DAILY #30 tablet 01/15/18 Vancomycin HCl [Vancocin HCl] 250 mg PO Q6H 7 Days 10/28/21 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 -: safety pin removal from right lung Psychosocial/ Personal History: Pt lives at home alone - Family History Father Medical History: Heart disease Notes: of [place] Sister Medical History: Heart disease Notes: of [place] - Social History Smoking Status: Unknown if ever smoked Alcohol use: No CD- Drugs: No Caffeine use: Yes Place of Residence: Home Review of Systems 10-point ROS is otherwise unremarkable Physical Examination Temp Pulse Resp BP Pulse Ox 97.1 F 75 14 135/71 91 02/21/24 08:00 02/21/24 08:00 02/21/24 08:00 02/21/24 08:00 02/21/24 08:00 General: Alert, In no apparent distress HEENT: Atraumatic, PERRLA, Mucous membr. moist/pink, EOMI, Sclerae nonicteric Neck: Supple, 2+ carotid pulse no bruit, No LAD, Without JVD or thyroid abnormality Respiratory: Clear to auscultation bilaterally, Normal air movement Cardiovascular: Regular rate/rhythm, Normal S1 S2 Gastrointestinal: Normal bowel sounds, No tenderness Musculoskeletal: No tenderness Integumentary: No rashes Neurological: Normal gait, Normal speech, Normal tone, Normal affect Lymphatics: No axilla or inguinal lymphadenopathy Laboratory Data (last 24 hrs) 02/20/24 02/20/24 02/20/24 14:45 14:45 14:45 WBC 7.00 Hgb 13.6 Hct 40.8 Plt Count 205 PT 12.0 INR 1.07 Sodium 144 Potassium 3.0 L BUN 27 H Creatinine 1.59 H Glucose 104 Magnesium 1.8 Total Bilirubin 1.0 AST 27 ALT 31 Alkaline Phosphatase 94 - Problems (1) HTN (hypertension) Onset Date: 01/18/16 Current Visit: No Status: Acute Plan: continue to monitor. (2) NSTEMI (non-ST elevated myocardial infarction) Current Visit: No Status: Acute Plan: Plan for coronary angiogram. continue ASA 81 mg daily Heparin drip.
[2024-02-21] MEDS: NA CHLORIDE 0.9% 500 ML ONE (10:49)
[2024-02-21] MEDS: ASPIRIN EC 81 MG TAB PO SCH (11:00)
[2024-02-21] MEDS: POTASSIUM 25 MEQ EFFERV TAB PO ONE ×2 (12:00→20:05)
[2024-02-21] MEDS: POTASS/SODIUM PHOSPHATE 1 PKT POWD.PACK PO SCH ×2 (12:00→20:06)
[2024-02-21] MEDS: ALBUTEROL 2.5 MG/3 ML NEB SOL NEB SCH (13:00)
[2024-02-21] MEDS: IPRATROPIUM BROM 0.5MG/2.5ML NEB SCH (13:00)
[2024-02-21] MEDS ORDERED: HEPARIN 10,000 UNIT/10 ML VIAL IV ONE (13:19)
[2024-02-21] MEDS ORDERED: HEPA 1000U/500MLS 2,000 UNIT/1,000 ML BAG IV ONE (13:19)
[2024-02-21] MEDS ORDERED: MIDAZOLAM HCL 2 MG/2 ML INJ ONE (13:20)
[2024-02-21] MEDS ORDERED: LIDOCAINE 1% 20 ML MDV ONE (13:20)
[2024-02-21] MEDS ORDERED: CLOPIDOGREL 75 MG TABLET ONE (13:20)
[2024-02-21] MEDS ORDERED: ATROPINE SULF 1 MG/10 ML SYR IV ONE (13:20)
[2024-02-21] MEDS ORDERED: HEPARIN 5000 UNIT/ML 1 ML VIAL ONE (13:20)
[2024-02-21] MEDS ORDERED: TICAGRELOR 90 MG TABLET PO ONE (13:21)
[2024-02-21] MEDS ORDERED: ASPIRIN 325 MG TAB ONE (13:21)
[2024-02-21] MEDS ORDERED: FENTANYL CITR 100 MCG/2 ML ONE (13:21)
--- NOTE | 2024-02-21 14:54 | ECHO ---
HEIGHT: 5 ft 3 in WEIGHT: 133 lb 4.8 oz DATE OF STUDY: 02/21/[address]: Maryanne Mendez NP 2-DIMENSIONAL: YES M.MODE: YES DOPPLER: YES COLOR FLOW: YES TDS: NO PORTABLE: YES DEFINITY: NO BUBBLE STUDY: NO DIAGNOSIS: NSTEMI CARDIAC HISTORY: CATHERIZATION: NO SURGERY: NO PROSTHETIC VALVE: NO PACEMAKER: NO MEASUREMENTS (cm) DIASTOLIC (NORMALS) SYSTOLIC (NORMALS) IVSd 1.1 (0.6-1.2) LA Diam 2.7 (1.9-4.0) LVEF 60-65% LVIDd 2.5 (3.5-5.7) LVIDs 1.9 (2.0-3.5) %FS 24% LVPWd 1.5 (0.6-1.2) Ao Diam 2.6 (2.0-3.7) 2 DIMENSIONAL ASSESSMENT: RIGHT ATRIUM: NORMAL LEFT ATRIUM: NORMAL RIGHT VENTRICLE: NORMAL LEFT VENTRICLE: MODERATE LEFT VENTRICULAR HYPERTROPHY TRICUSPID VALVE: MILD TRICUSPID REGURGITATION MITRAL VALVE: NORMAL PULMONIC VALVE: NORMAL AORTIC VALVE: CALCIFIED PERICARDIAL EFFUSION: NONE AORTIC ROOT: NORMAL LEFT VENTRICULAR WALL MOTION: NORMAL. DOPPLER/COLOR FLOW: GRADE I DIASTOLIC DYSFUNCTION. COMMENTS: 1. NORMAL LEFT VENTRICULAR SYSTOLIC FUNCTION. LEFT VENTRICULAR EJECTION FRACTION 60-65%. NORMAL WALL MOTION. 2. GRADE I DIASTOLIC DYSFUNCTION. 3. MODERATE AORTIC STENOSIS. AORTIC VALVE AREA 1.5 CENTIMETERS SQUARED. MEAN GRADIENT 21 mmHg. 4. NORMAL FILLING PRESSURE. RIGHT ATRIAL PRESSURE 0-5 mmHg. 5. MILD PULMONARY HYPERTENSION. RIGHT VENTRICULAR SYSTOLIC PRESSURE 40-45 mmHg. TECHNOLOGIST: MARLENI GONZALES
[2024-02-21] MEDS: NA CHLORIDE 0.9% 1,000 ML IV SCH (16:51)
--- NOTE | 2024-02-21 17:34 | OP ---
Date of Procedure: 02/21/2024 Surgeon: Aidan Armstrong Procedures Performed: 1.Selective coronary angiogram. 2.Left heart catheterization. Indication For Procedure: [id number]. Complications: None. Estimated Blood Loss: Less than 50 cc. Access: Right radial, closed by TR band. Sedation Time: 20 minutes with 1 of Versed and 25 of fentanyl. Description Of Procedure: After risks, and benefits, and alternatives were explained to the patient, patient agreed to proceed with procedure and signed informed consent. The patient was brought back to the fish farm laborer, prepped and draped in sterile fashion. Time-out was performed. Sedation was admini stered. Next, right radial access was obtained using an ultrasound-guided micropuncture technique. [place] 4.0 catheter was advanced over a J-wire to the LV cavity. LVEDP was obtained. Pullback did no t show any gradient. Same catheter was used for selective angiogram of the left and right coronary s ystems. At the end of procedure, catheter was removed over a J-wire. Sheath was removed. TR band w as applied. Hemostasis was achieved. The patient was moved back to Recovery in stable condition. Findings: 1.Left main normal. 2.LAD very tortuous and normal. 3.Left circ tortuous and normal. 4.RCA tortuous and normal. 5.LVEDP 15 mmHg. Assessment And Plan: Normal coronaries. Mild elevated filling pressure. Plan will be to continue medical management. SONIA/TAMI Voice ID: [id number] Report ID: [id number]
[2024-02-21] MEDS: MORPHINE 2 MG/ML SYR IV PRN (20:14)
--- NOTE | 2024-02-21 21:15 | P.PN ---
Date of Service: 02/21/24 Subjective Awake feeling well, reports chest pressure resolved Left heart cath resulted with clear coronaries Creatinine increased OVN, will need IVF s/p dye used on heart cath. ROS 10 point ROS as noted above, otherwise negative Physical Exam General: Alert and Oriented x3, NAD HEENT: Atraumatic, Normocephalic, PERRLA Neck: Supple, 2+ carotid pulse no bruit Respiratory: Clear to auscultation bilaterally, Normal air movement, on RA Cardiovascular: Normal pulses, NSR, Normal S1 S2 Capillary refill: <2 Seconds Gastrointestinal: Normal bowel sounds, Soft and benign on palpation, ND/NT Musculoskeletal: No clubbing Integumentary: No rashes Neurological: Normal speech, Normal tone Vitals Reviewed Problem list NSTEMI with chest pressure History of CAD with stent History of chronic diastolic CHF TAIWO COPD on 4 L nasal cannula Right Pleural effusion History of PCP pneumonia HIV Chronic pain Hypertension Hypercholesterolemia Assessment and Plan NSTEMI with chest pressure History of CAD with stent History of chronic diastolic CHF - EKG: Inverted T waves at aVF, ii, V4 - troponin 208.1/180.0/168.8 - Ordered transthoracic echocardiogram - Chest x-ray reports "Chronic thickening of the pulmonary interstitial noted. Trace right pleural effusion. Underlying COPD likely present. No focal infiltrate suspicious for pneumonia is seen. The heart is upper limit of normal in size. No displaced fractures identified." - Consult Cardiology -Heart cath with clear coronaries, will continue medical management - S/P aspirin 324 mg PO x 1 in ED - Start daily baby aspirin and statin - Symptom control with PRN acetaminophen, nitroglycerin, morphine -continuous telemetry -TSH/FreeT4, A1C, lipid panel pending -electrolyte protocol in place TAIWO -BUN and creatinine 32 and 1.80, GFR 32 -gentle IVF, recheck in AM labs COPD on 4 L nasal cannula Right Pleural effusion -Chest x-ray reports "Chronic thickening of the pulmonary interstitial noted. Trace right pleural effusion. Underlying COPD likely present. No focal infiltrate suspicious for pneumonia is seen. The heart is upper limit of normal in size. No displaced fractures identified." -Lasix given in the ED History of PCP pneumonia HIV Chronic pain Hypertension Hypercholesterolemia -Continue home medications DVT PPx SCD Full code 24-hour OBS Discharge Plan: Home Plan to discharge in: 24 Hours
[2024-02-21] MEDS: ESZOPICLONE 1 MG TAB PO PRN (23:03)
[2024-02-22 02:09] VITALS: TEMP 97.5
[2024-02-22 04:51] LABS: Absolute Lymphocytes (CBC) 1.6 K/uL (0.7-4.9); Absolute Monocytes 0.7 K/uL (0.1-1.3); Absolute Neutrophil 5.8 K/uL (1.8-8.0); Basophils % 0.4 % (0-1.3); Eosinophils % 0.5 % (0-4.4); Hemoglobin 11.7 g/dL (12.0-15.0); Lymphocytes % 19.1 % (15.3-44.8); MCH 36.1 pg (27.0-35.0); MCHC 33.5 g/dL (32.0-36.0); MCV 107.7 fL (80-100); MPV 9.2 fL (7.6-11.3); Monocytes % 8.3 % (3.3-12.3); Neutrophils % 71.7 % (41.7-73.7); Nucleated Red Blood Cells % 0.1 % (0-0); Platelets 180 thou/uL (152-406); RBC Red Blood Cell Count 3.25 M/uL (3.86-4.86); Red Cell Distribution Width 15.5 % (12.1-15.2)
[2024-02-22 05:13] LABS: Magnesium 1.7 mg/dL (1.6-2.4); Phosphorus 2.8 mg/dL (2.5-4.9)
[2024-02-22 08:36] LABS: Blood Morphology Comment NOTED (NOT SEEN); Macrocytosis 1+; Platelet Estimate ADEQ; White Blood Cell Scan OK (OK)
[2024-02-22] MEDS: MAGNESIUM SULFATE 1 gm IVPB 1 GM/100 ML BAG IV ONE (09:00)
--- NOTE | 2024-02-22 09:07 | P.DS ---
Admission Date: 02/21/24 Discharge Date: 02/22/24 Disposition: ROUTINE DISCHARGE Discharge Condition: GOOD Reason for Admission: NSTEMI Brief History of Present Illness: Diagnosis NSTEMI with chest pressure Pulmonary Hypertension Calcified Aortic root Mild tricuspid regurgitation History of CAD with stent History of chronic diastolic CHF TAIWO COPD on 4 L nasal cannula Right Pleural effusion History of PCP pneumonia HIV Chronic pain Hypertension Hypercholesterolemia HPI 02/20/24 Charito Michael is a 58 year old female with PMHX Back pain, CHF, Chronic pain, COPD on 4 LNC, HIV, PCP pneumonia, Hypercholesterolemia, Hypertension, CAD with stent, seasonal allergies who presents to the ED with chief complaint of chest pressure and heart palpitations. She reports the chest pressure started this morning when she woke up this morning. She denies heart history for herself and her family, she is not a good historian. On examination, she is in no acute distress, reports chest pressure has resolved with the aspirin, lungs sounds clear, hemodynamically stable. Laboratory evaluation is significant for potassium 3.0, BUN/creatinine 27/1.59, GFR 37, troponin 208.1, BNP 2858. Initial vitals BP 145 / 69; Pulse 86; Resp 22; Pulse Ox 77% on R/A. Chest x-ray reports "Chronic thickening of the pulmonary interstitial noted. Trace right pleural effusion. Underlying COPD likely present. No focal infiltrate suspicious for pneumonia is seen. The heart is upper limit of normal in size. No displaced fractures identified." Charito will be admitted to hospitalist service for further treatment of NSTEMI, Dr. Armstrong consulted. Hospital Course: Charito presented with left sided chest pressure and was found to have elevated troponin. Dr. Armstrong was consulted and performed a heart cath resulted with clean coronaries. Charito reports chest pressure has resolved. ECHO revealed normal EF, pulmonary HTN, aortic valve calcification, and mild tricuspid regurgitation. Her creatinine bumped overnight prior to the the heart cath. This morning her creatinine responded well to IVF. She is tolerating PO diet and ambulating independently. She is on home oxygen of 2 LNC. On 02/22/24, Charito was seen on morning rounds and deemed medically stable for discharge home with family support. Charito was discharged with instructions to schedule follow-up appointments with Dr. Armstrong and PCP. Charito was provided prescriptions for home refills. Physical Exam General: Alert and Oriented x3, NAD HEENT: Atraumatic, Normocephalic, PERRLA Neck: Supple, 2+ carotid pulse no bruit Respiratory: Clear BBS, Nonlabored breathing, on 2 LNC Cardiovascular: Normal pulses, NSR, Normal S1 S2 Capillary refill: <2 Seconds Gastrointestinal: Normal bowel sounds, Soft and benign on palpation, nontender Musculoskeletal: No clubbing Integumentary: No rashes Neurological: Normal speech, Normal tone Vital Signs/Physical Exam: Temp Pulse Resp BP Pulse Ox 97.5 F 82 17 124/69 93 02/22/24 05:17 02/22/24 05:17 02/22/24 05:17 02/22/24 05:17 02/22/24 04:00 Laboratory Data at Discharge: WBC 8.10 thou/uL (4.3-10.9) 02/22/24 04:20 Hgb 11.7 g/dL (12.0-15.0) L 02/22/24 04:20 Hct 35.0 % (36.0-45.0) L 02/22/24 04:20 Plt Count 180 thou/uL (152-406) 02/22/24 04:20 PT 12.0 SECONDS (9.4-12.5) 02/20/24 14:45 INR 1.07 02/20/24 14:45 APTT 31.9 SECONDS (24.3-36.9) 02/21/24 17:29 Sodium 141 mEq/L (136-145) 02/22/24 04:20 Potassium 4.0 mEq/L (3.5-5.1) D 02/22/24 04:20 BUN 25 mg/dL (7-18) H 02/22/24 04:20 Creatinine 1.12 mg/dL (0.55-1.02) H 02/22/24 04:20 Glucose 102 mg/dL (74-106) 02/22/24 04:20 Phosphorus 2.8 mg/dL (2.5-4.9) 02/22/24 04:20 Magnesium 1.7 mg/dL (1.6-2.4) 02/22/24 04:20 Total Bilirubin 1.0 mg/dL (0.2-1.0) 02/20/24 14:45 AST 27 U/L (15-37) 02/20/24 14:45 ALT 31 U/L (13-56) 02/20/24 14:45 Alkaline Phosphatase 94 U/L (45-117) 02/20/24 14:45 Triglycerides 46 mg/dL (<150) 02/21/24 04:24 Cholesterol 171 mg/dL (<200) 02/21/24 04:24 HDL Cholesterol 116 mg/dL (40-60) H 02/21/24 04:24 Cholesterol/HDL Ratio 1.47 02/21/24 04:24 Home Medications: Amitriptyline HCl 1 tab PO BEDTIME 11/02/15 Fluticasone [Flovent Hfa 110*] 2 sprays IH BID 01/11/18 Nystatin 5 ml PO QID 01/11/18 Zolpidem Tartrate 10 mg PO BEDTIME PRN 01/11/18 ALPRAZolam [Xanax*] 1 mg PO TID #90 tab 02/22/24 Amitriptyline HCl 100 mg PO BEDTIME 30 Days #30 tab 02/22/24 Atorvastatin Calcium [Lipitor] 40 mg PO DAILY #30 tablet 02/22/24 Fluticasone Propionate 100 mcg IH BID 30 Days #1 inhaler 02/22/24 Gabapentin 100 mg PO TID #90 02/22/24 Ibuprofen [Ibu] 600 mg PO BID #60 02/22/24 Nystatin 1 ml PO QID 30 Days #120 ml 02/22/24 Vancomycin HCl [Vancocin HCl] 250 mg PO Q6H 7 Days 02/22/24 Zolpidem Tartrate 10 mg PO BEDTIME #30 02/22/24 New Medications: Amitriptyline HCl 100 mg PO BEDTIME 30 Days #30 tab Fluticasone Propionate 100 mcg IH BID 30 Days #1 inhaler Gabapentin 100 mg PO TID #90 Ibuprofen [Ibu] 600 mg PO BID #60 Atorvastatin Calcium [Lipitor] 40 mg PO DAILY #30 tablet Nystatin 1 ml PO QID 30 Days #120 ml Vancomycin HCl [Vancocin HCl] 250 mg PO Q6H 7 Days ALPRAZolam [Xanax*] 1 mg PO TID #90 tab Zolpidem Tartrate 10 mg PO BEDTIME #30 Physician Discharge Instructions: Charito was evaluated for chest pressure with a left heart cath that resulted clear. Troponin trended flat, Echo showing pulmonary HTN, and aortic stenosis, she denies chest pain/pressure and is ready for discharge. She is on her home oxygen level and will need to follow up with her PCP, seed production field supervisor, and clinical quality assurance associate. 1. Please call and schedule a follow-up appointment with your PCP in 3-5 days - Please follow-up with your PCP for medication refills/adjustments 2. Please call and schedule a follow-up appointment with Dr Armstrong in 2 weeks 3. please call and schedule a follow-up appointment with Dr. Garsia or your seed production field supervisor in one week -discuss pulmonary hypertension 4. Continue heart healthy diet 5. activity restrictions fall precaution 6. Return to the ED if symptoms worsen Diet: AHA Activity: Fall precautions Followup: Aidan Armstrong MD [ACTIVE - CAN ADMIT] - NONE,NONE [Primary Care Provider] - Parish Garsia MD [ACTIVE - CAN ADMIT] -
--- NOTE | 2024-02-24 10:55 | EKG ---
Test Date: 2024-02-20 Test Time: 14:10:50 Grease Rack Worker: JOE MEASUREMENT RESULTS: Intervals: Rate: 84 NH: 138 QRSD: 84 QT: 410 QTc: 484 [place]: P: 75 NH: 138 QRS: 74 T: -56 INTERPRETIVE STATEMENTS: Normal sinus rhythm with sinus arrhythmia Right atrial enlargement Left ventricular hypertrophy with repolarization abnormality Prolonged QT Abnormal ECG Compared to ECG 07/15/2023 20:40:08 Left ventricular hypertrophy now present Early repolarization now present Prolonged QT interval now present T-wave abnormality no longer present Electronically Signed On 02-24-24 10:51:20 HOSE WRAPPER by Aidan Armstrong
[2024-02-25 15:11] VITALS: BP 131/74
[2024-02-25 15:15] VITALS: O2SAT 97
== END 2024-02-22 11:55 | disposition home or self-care (01) | DRG 281 ==
LOC: ER 13:07 → ERHOLD 17:01 → 2ND 18:32 → OBSVTOIN 02-21 18:33
PROVIDERS: ADMIT Internal Medicine; ATTEND Internal Medicine
PROC: 4A023N7 Measurement of Cardiac Sampling and Pressure, Left Heart, Percutaneous Approach (ICD-10-PCS; principal; 2024-02-21)
PROC: B2111ZZ Fluoroscopy of Multiple Coronary Arteries using Low Osmolar Contrast (ICD-10-PCS; 2024-02-21)
DX: I21.4 Non-ST elevation (NSTEMI) myocardial infarction (principal); I50.32 Chronic diastolic (congestive) heart failure; J44.1 Chronic obstructive pulmonary disease with (acute) exacerbation; N17.9 Acute kidney failure, unspecified; I11.0 Hypertensive heart disease with heart failure; I27.20 Pulmonary hypertension, unspecified; E87.6 Hypokalemia; I07.1 Rheumatic tricuspid insufficiency; G89.29 Other chronic pain; E78.00 Pure hypercholesterolemia, unspecified; Z21 Asymptomatic human immunodeficiency virus [HIV] infection status; I25.10 Atherosclerotic heart disease of native coronary artery without angina pectoris; Z95.5 Presence of coronary angioplasty implant and graft; Z60.2 Problems related to living alone; Z99.81 Dependence on supplemental oxygen; Z79.899 Other long term (current) drug therapy; Z90.710 Acquired absence of both cervix and uterus
CPT/HCPCS: 36415; 71045; 76937; 80048; 80061; 80076; 81001; 83036; 83735; 83880; 84100; 84439; 84443; 84484; 85025; 85610; 85730; 87804; 87811; 93005; 93306; 93458; 94640; 96372; 96374; 96375; 99152; 99153; 99285; C1893; G0378; J0461; J1644; J1940; J2003; J2250; J2270; J2919; J3010; J3475; J7030; J7040; J7613; J7644; Q9966

== ENCOUNTER 2024-03-20 14:07 | Observation (INO) | payer OTHER ==
[2024-03-20] MEDS ORDERED: ALBUTEROL 2.5 MG/3 ML NEB SOL ONE (14:21)
[2024-03-20] MEDS ORDERED: IPRATROPIUM BROM 0.5MG/2.5ML ONE (14:21)
[2024-03-20] MEDS ORDERED: METHYLPREDNISOLONE 125 MG INJ ONE (14:21)
--- OUTSIDE RECORDS SUMMARY | 2024-03-20 14:41 | XMS REPORT | Continuity of Care Document ---
Author Name Unknown Address [address] [facility] [address] [place] [address] [facility] thconnect Address [address] [facility]. [address] [place] [address] Care Team Providers Care Magneto Specialist Name Role Phone Delfino Schumacher [facility], [facility] Physician Zaria Orellana Attending Clinician Unavail able Lianet Pierre Attending Clinician [phone] Lj Paredes RN Attending Clinician Unavail able KVNG ROBERSON Attending Clinician Unavailable Anyi Hearn NP Attending Clinician Kvng Roberson DO Attending Clinician [phone] GASTON HOBBS Attending Clinician Unavailable Gaston Hobbs MD Attending Clinician [phone] Kasandra Cha Attending Clinician LEE HENDERSON Attending Clinician Unavailab CLARITZA Booth Attending Clinician Unavail able Doctor Unassigned, [place] Attending Clinician U iván Almaguer RN, Jeanine Jones Attending Clinician UnaGuerline Hemphill MD Attending Clinician [phone] Guero Pantoja Attending Clinician [phone] GUERO MARTINEZ Attending Clinician Unavailable Jeanie NERI, Osman Loya Attending Clinician Unavaila harvey RODRIGUEZ Attending Clinician Unavailable Av Attending Clinician Unavailable APOLINAR WEBER Attending Clinician Unavailable Pgy2 Attending Clinician Unavailable Apolinar Weber MD Attending Clinician + [phone] Enedina Mccarty MD Attending Clinician + [phone] BILLY VALERIO Attending Clinician UnavailToby Madden MD Attending Clinician [phone] Delores Garcia MD, Tressa Schwartz Attending Clinician +[phone] Billy Valerio MD Attending Clinician [phone] Evette Dunn MA Attending Clinician Unavailab KENNEDI Pop Attending Clinician Unavailable Eduarda GLORIA, Kennedi Islas Attending Clinician + [phone] Mikael Quiroz Attending Clinician [phone] LJ LIANG Attending Clinician Unavailable Lj Mcguire Attending Clinician + [phone] MARGARET NUNEZ Attending Clinician Unavailab Margaret Rodgers DO Attending Clinician [phone] Bonny Morris MD [employer] Attending Clinician + [phone] BONNY MORRIS [employer] Attending Clinician Unavaila Terri Clemente Attending Clinician [phone] Dawn Mendoza Attending Clinician [phone] Maggie_Tressa Attending Clinician Unavailable Josse Steele Attending Clinician [phone] JOSSE LOCKHART Attending Clinician Unavaila KVNG Weber Admitting Clinician Unavailable Kvng Roberson DO Admitting Clinician [phone] GASTON HOBBS Admitting Clinician Unavailable JENNIFER Admitting Clinician Unavailable Av Admitting Clinician Unavailable Tressa ESTRELLA JR Admitting Clinician Unavaila harvey Estrella Jr., MD, A Efren Admitting Clinician [phone] KENNEDI BLUE Admitting Clinician Unavailable Sammi Admitting Clinician Unavailable Payers Payer Name Policy Type Policy Number Effective Date Expirati on Date Source [facility] MCR Dual Complete (HMO-POS D-SNP) [id number] [facility] [employer] (MEDICARE REPLACEMENT HMO) [id number] 2020 00:00:00 Problems Condition Name Condition Details Condition Category Status Onset Date Resolution Date Last Treatment Date Treating Clinician Comments Source COPD exacerbati on COPD exacerbati on Disease Active 05-18 00:00: 00 [facility] Troponin I above reference range Troponin I above reference range Disease Active 05-18 00:00: 00 [facility] Other hyperlipid emia Other hyperlipid emia Disease Active 05-18 00:00: 00 [facility] TAIWO (acute kidney injury) TAIWO (acute kidney injury) Disease Active 05-18 00:00: 00 [facility] Aortic stenosis Aortic stenosis Disease Active 05-18 00:00: 00 [facility] Coronary artery disease involving poarch coronary artery of poarch heart without angina pectoris Coronary artery disease involving poarch coronary artery of poarch heart without angina pectoris Disease Active 05-18 00:00: 00 [facility] Acute cough Acute cough Disease Active 05-15 00:00: 00 [facility] 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 Active 06-27 00:00: 00 [facility] Bacteremia Bacteremia Disease Active 06-09 00:00: 00 [facility] Medically noncomplia nt Medically noncomplia nt Disease Active 09-02 00:00: 00 [facility] Thrush Thrush Disease Active 09-02 00:00: 00 [facility] Obesity (BMI 30-39.9) Obesity (BMI 30-39.9) Disease Active 05-31 00:00: 00 [facility] Genital warts Genital warts Disease Active 08-25 00:00: 00 [facility] H/O: hysterecto my H/O: hysterecto my Disease Active 08-25 00:00: 00 [facility] [id number] Allergic rhinitis, unspecifie d seasonalit y, unspecifie d trigger Problem [facility] [id number] Mental developmen carmen delay Problem [facility] [id number] History of hepatitis C Problem [facility] [id number] 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) Problem [facility] [id number] HIV disease Problem [facility] [id number] +5th digit eff 11/12/19*St age 1 chronic kidney disease Problem [facility] [id number] Chronic kidney disease, unspecifie d CKD stage Problem [facility] [id number] Essential hypertensi on Problem [facility] [id number] Chronic heart failure with preserved ejection fraction Problem [facility] [id number] Pulmonary emphysema, unspecifie d emphysema type Problem [facility] [id number] Mental disability Problem [facility] [id number] Lumbago with sciatica, right side Problem [facility] [id number] Lumbago with sciatica, left side Problem [facility] [id number] 07 On home O2 Problem [facility] n [facility] [id number] Environmen carmen allergies Problem [facility] [id number] Vitamin D deficiency Problem [facility] [id number] Other chronic pain Problem [facility] [id number] Cardiac murmur Problem [facility] [id number] CHRIS (generaliz ed anxiety disorder) Problem [facility] [id number] Mixed hyperlipid emia Problem [facility] [id number] Seasonal allergies Problem [facility] Allergies, Adverse Reactions, Alerts Allergy Name Allergy Type Status Severity Reaction(s) Onset Date Inactive Date Treating Clinician Comments Source NO KNOWN ALLERGIE S Drug Class Active [facility] Social History Social Habit Start Date Stop Date Quantity Comments Source Gender identity [facility] acute hospital Sexual orientation U [facility] History of Tobacco Use Current Smoker [facility] Sex Assigned At [facility] Alcoholic beverage intake 2023-05-16 00:00:00 2023-05-16 00:00:00 Current non-drinker of alcohol (finding) [facility] Alcohol intake 2023-05-16 00:00:00 2023-05-16 00:00:00 Current non-drinker of alcohol (finding) [facility] Exposure to SARS-CoV-2 (event) 2022-03-24 00:00:00 2022-04-03 13:07:00 Not sure [facility] History of Social function 2022-04-03 00:00:00 2022-04-03 00:00:00 [facility] Tobacco use and exposure 2022-04-03 00:00:00 2022-04-03 00:00:00 Smokeless tobacco non-user [facility] Smoking Status Start Date Stop Date Source Current Smoker 2023-11-11 00:00:00 [facility] Never smoked tobacco [facility] Medications Ordered Medication Name Filled Medication Name Start Date Stop Date Current Medication? Ordering Clinician Indication Dosage Frequency Signature (SIG) Comments Components Source amitriptyli ne 100 mg tablet 02-25 00:00: 00 Yes 1mg Delfino Endy Orta fluticasone propionate 50 mcg/actuati on nasal spray,suspe nsion 02-25 00:00: 00 Yes 2mcg/ac tuation Delfino Endy Orta duloxetine 60 mg capsule,del ayed release 02-25 00:00: 00 Yes 1mg Delfino Endy Orta albuterol sulfate HFA 90 mcg/actuati on aerosol inhaler 02-24 00:00: 00 Yes mcg/act uation Delfino Orta ibuprofen 800 mg tablet - 00:00: 00 Yes 1mg Delfino Orta trazodone 50 mg tablet - 00:00: 00 Yes 12mg Delfino Orta albuterol [...] 2023-02 00:00: 00 Yes 1mg Delfino Orta triamcinolo ne acetonide 0.1 % topical cream 2023-02 00:00: 00 Yes 1% Delfino Orta fluticasone propionate 50 mcg/actuati on nasal spray,suspe nsion 2023-02- 00:00: 00 Yes 2mcg/ac tuation Delfino Orta [...] Orta Biktarvy 50 mg-200 mg-25 mg tablet 2023-02- 00:00: 00 Yes mg Delfino Orta albuterol sulfate HFA 90 mcg/actuati on aerosol inhaler 2023-02- 00:00: 00 Yes mcg/act uation Delfino Orta triamcinolo ne acetonide 0.1 % topical cream 2023-02 0 00:00: 00 Yes 1% Delfino Orta cetirizine 10 mg tablet 2023-02 017 00:00: 00 Yes 1mg Delfino Orta benzonatate 200 mg capsule 2023-02 017 00:00: 00 Yes 1mg Delfino Orta triamcinolo ne acetonide 0.1 % topical cream 2023-02 0-14 00:00: 00 Yes 1% Delfino Orta fluticasone propionate 50 mcg/actuati on nasal spray,suspe nsion 2023-0214 00:00: 00 Yes 2mcg/ac tuation Delfino Orta duloxetine 30 mg capsule,del ayed release 2023-0214 00:00: 00 Yes 1mg Delfino Orta albuterol [...] 2023-02 00:00: 00 Yes 1mg Delfino Orta Trelegy [...] (Triamcinol one) 11-10 00:00: 00 No 40mg [facility] baclofen 5 mg tablet 11-01 00:00: 00 [...] Delfino Orta amlodipine 10 mg tablet 0 8- 00:00: 00 Yes 1mg Delfino Orta baclofen 5 mg tablet 0 - 00:00: 00 Yes 1mg Delfino Orta trazodone 50 mg tablet 0 - 00:00: 00 Yes 12mg Delfino Orta atorvastati n 40 mg tablet 0 - 00:00: 00 Yes 1mg Delfino Orta albuterol sulfate HFA 90 mcg/actuati on aerosol inhaler 0 8- 00:00: 00 Yes mcg/act uation Delfino Orta amlodipine 10 mg tablet 0 - 00:00: 00 Yes 1mg Delfino Orta losartan 100 mg-hydrochl orothiazide 12.5 mg tablet 0 - 00:00: 00 Yes 1mg Delfino Orta baclofen 5 mg tablet 0 - 00:00: 00 Yes 1mg Delfino Orta atorvastati n 40 mg tablet - 00:00: 00 Yes 1mg Delfino Orta trazodone 50 mg tablet 09-15 00:00: 00 Yes 12mg Delfino Orta albuterol sulfate HFA 90 mcg/actuati on aerosol inhaler 09-09 00:00: 00 Yes mcg/act uation Delfino Orta amlodipine 10 mg tablet 0 09-09 00:00: 00 Yes 1mg Delfino Orta losartan 100 mg-hydrochl orothiazide 12.5 mg tablet 0 09-09 00:00: 00 Yes 1mg Delfino Orta baclofen 5 mg tablet 0 09-09 00:00: 00 Yes 1mg Delfino Orta trazodone 50 mg tablet 0 09-09 00:00: 00 Yes 12mg Delfino Orta atorvastati n 40 mg tablet 0 09-09 00:00: 00 Yes 1mg Delfino Orta buprenorphi ne 4 mg-naloxone 1 mg sublingual film 2023-0 - 00:00: 00 Yes 1mg Delfino Orta [...] n Delfino Orta baclofen 5 mg tablet - 00:00: 00 Yes 1mg Delfino Orta baclofen 5 mg tablet - 00:00: 00 Yes 1mg Delfino Orta aspirin 81 mg tablet,ruchi yed release - 00:00: 00 Yes mg Delfino Orta Biktarvy [...] 05-20 00:00: 00 06-20 04:59 :00 No [id number] 81mg Take 1 tablet by mouth in the morning for 30 days. [facility] predniSONE 20 mg tablet 05-20 00:00: 00 05-24 04:59 :00 No [id number] 40mg Take 2 tablets by mouth in the morning for 3 days. [facility] ALPRAZOLAM ORAL 05-19 16:42: 32 Yes Take by mouth. [facility] celecoxib 400 mg capsule 05-19 16:42: 32 Yes 400mg Take 1 capsule by mouth in the morning. [facility] atorvastati n (LIPITOR) tablet 40 mg 05-19 02:00: 00 Yes 40mg 40 mg, Oral, QHS, First dose on 05/19/23 at 2100, Until Discontinu ed, Routine [facility] aspirin 81 mg tablet,ruchi yed release 05-19 00:00: 00 Yes mg Delfino Orta PREDNISONE 20MG 05-19 00:00: 00 Yes Delfino Orta budesonide 0.5 mg/2 mL nebulizer solution 05-19 00:00: 00 06-19 04:59 :00 No [id number] 1mg Inhale 4 mL every 12 (twelve) hours for 30 days. [facility] aspirin EC tablet 81 mg 05-18 20:45: 00 Yes 81mg 81 mg, Oral, DAILY, First dose on 05/19/23 at 1545, Until Discontinu ed, Routine [facility] predniSONE (DELTASONE) tablet 40 mg 05-18 14:00: 00 Yes 40mg 40 mg, Oral, DAILY, First dose on Sat05/19/23 at 0900, Until Discontinu ed, Routine [facility] methylpredn isolone sod succ (SOLU-MEDRO L) injection 125 mg 05-17 10:00: 00 05-17 14:54 :19 No 125mg 125 mg, Slow IV Push, Q6H ABX, First dose on Sat05/18/23 at 0500, Until Discontinu ed, Routine [facility] budesonide (PULMICORT RESPULE) nebulizer solution 1 mg 05-17 07:00: 00 Yes 1mg 1 mg, Inhalation , Q12H, First dose on Sat05/18/23 at 0200, Until Discontinu ed, Routine
modular home crew member approving non-formul fanta medication : LEFTY ABREU
[place] son for non-formul fanta use: Treatment failure with formulary alternativ e [facility] sulfamethox azole-trime thoprim (BACTRIM DS) 800-160 mg per tablet 1 tablet 05-17 01:00: 00 Yes 1{tbl} 1 tablet, Oral, QMON/SAT/ RI AT 1999, First dose on Sat05/17/23 at 1999, Until Discontinu ed, Routine
Reason for Anti-Infec tive: Empiric Non-Surgic al Prophylaxi s
Durat ion of therapy: 5 days [facility] predniSONE 20 mg tablet 05-17 00:00: 00 05-21 04:59 :00 No [id number] 20mg Take 1 tablet by mouth in the morning for 3 days. [facility] NaCl 0.9% (NS) IV infusion 1,000 mL 05-16 21:00: 00 Yes 1000mL at 75 mL/hr, IV Infusion, CONTINUOUS , Starting on Sat05/17/23 at 1600, Until Discontinu ed, Routine [facility] magnesium sulfate in water 2 gram/50 mL (4 %) infusion 2 g 05-16 18:45: 00 05-16 19:50 :00 No 2g 2 g, IV Piggyback, Administer over 60 Minutes, ONCE, 1 dose, On Sat05/17/23 at 1345, Routine [facility] losartan (COZAAR) tablet 100 mg 05-16 14:00: 00 Yes 100mg 100 mg, Oral, DAILY, First dose on Sat05/17/23 at 0900, Until Discontinu ed, Routine [facility] fluconazole (DIFLUCAN) tablet 200 mg 05-16 14:00: 00 Yes 200mg 200 mg, Oral, DAILY, First dose on Sat05/17/23 at 0900, Until Discontinu ed, ANTONIETTA
Re ason for Anti-Infec tive: Empiric Non-Surgic al Prophylaxi s
Durat ion of therapy: 5 days [facility] bictegrav-e mtricit-ten ofov ala (BIKTARVY) 50-200-25 [...] home supply? Yes
Dos age Form: Capsule [facility] predniSONE (DELTASONE) tablet 40 mg 05-16 14:00: 00 05-17 09:48 :38 No 40mg 40 mg, Oral, DAILY, 5 doses, First dose on Sat05/17/23 at 0900, Last dose on Sat05/21/23 at 0900, Routine [facility] metoprolol tartrate (LOPRESSOR) tablet 12.5 mg 05-16 13:00: 00 Yes 12.5mg 12.5 mg, Oral, BID, First dose on Sat05/17/23 at 0800, Until Discontinu ed, Routine [facility] fluticasone propionate (FLOVENT HFA) 220 mcg/actuati on inhaler 2 Puff 05-16 13:00: 00 Yes 2{puff} 2 Puff, Inhalation , Q12H, First dose on Sat05/17/23 at 0800, Until Discontinu ed, Routine
Is this order for a patient with suspected or confirmed COVID-19 infection? No [facility] cetirizine (ZYRTEC) tablet 10 mg 05-16 03:00: 00 Yes 10mg 10 mg, Oral, QHS, First dose on Sat05/16/23 at 2200, Until Discontinu ed [facility] amLODIPine (NORVASC) tablet 10 mg 05-16 03:00: 00 Yes 10mg 10 mg, Oral, DAILY, First dose on Sat05/16/23 at 2200, Until Discontinu ed, Routine [facility] heparin (porcine) injection 5,000 Units 05-16 03:00: 00 Yes 5000U 5,000 Units, Subcutaneo us, Q8H, First dose on Sat05/16/23 at 2200, Until Discontinu ed, Routine [facility] albuterol (VENTOLIN) inhaler 2 Puff 05-16 02:35: 18 Yes 2{puff} 2 Puff, Inhalation , Q6HPRN, Starting on Sat05/16/23 at 2135, Until Discontinu ed, Routine, Wheezing, Shortness of Breath [facility] ipratropium -albuteroL (DUONEB) 0.5 mg-3 mg(2.5 mg base)/3 mL nebulizer solution 3 mL 05-15 21:00: 00 05-15 18:01 :47 No 3mL 3 mL, Inhalation , QID, First dose on Sat05/16/23 at 1600, Until Discontinu ed, Routine [facility] azithromyci n (ZITHROMAX) 500 mg in NaCl [...] y
Durat ion of therapy: 72 hours [facility] magnesium sulfate in water 2 gram/50 mL (4 %) infusion 2 g 05-15 19:45: 00 05-15 19:54 :00 No 2g 2 g, IV Piggyback, Administer over 60 Minutes, ONCE, 1 dose, On Farrah 05/16/23 at 1445, Routine [facility] albuterol (PROVENTIL) 2.5 mg /3 mL (0.083 %) nebulizer solution 7.5 mg 05-15 19:45: 00 05-15 18:54 :00 No 7.5mg 7.5 mg, Inhalation , ONCE, 1 dose, On Farrah 05/16/23 at 1445, [facility] acetaminoph en (TYLENOL) tablet 650 mg 05-15 19:30: 37 Yes 650mg 650 mg, Oral, Q6HPRN, Starting on Farrah 05/16/23 at 1430, Until Discontinu ed, Routine, Pain (scale 1-3) [facility] NaCl 0.9% (NS) bolus infusion 1,000 mL 05-15 18:30: 00 05-15 19:34 :00 No 1000mL at 999 mL/hr, 1,000 mL, IV Infusion, ONCE, 1 dose, On Farrah 05/16/23 at 1330, [facility] budesonide (PULMICORT RESPULE) nebulizer solution 1 mg 05-15 18:15: 00 05-15 17:40 :00 No 1mg 1 mg, Inhalation , ONCE, 1 dose, On Farrah 05/16/23 at 1315, Routine [facility] albuterol (PROVENTIL) 2.5 mg /3 mL (0.083 %) nebulizer solution 5 mg 05-15 18:00: 00 05-15 18:03 :00 No 5mg 5 mg, Inhalation , ONCE, 1 dose, On Farrah 05/16/23 at 1315, STAT [facility] methylpredn isolone sod succ (SOLU-MEDRO L) injection 125 mg 05-15 17:31: 00 05-15 17:41 :00 No 125mg 125 mg, Intravenou s, ONCE, 1 dose, On Farrah 05/16/23 at 1245, ANTONIETTA [facility] sodium chloride (NS) injection 5 mL 05-15 17:25: 52 Yes 5mL 5 mL, Intravenou s, PRN, Starting on Farrah 05/16/23 at 1225, Until Discontinu ed, Routine, IV line flushing [facility] IBUPROFEN 600MG 05-12 00:00: 00 Yes [...] 04-02 00:00: 00 06-25 00:00 :00 No [id number] Delfino Orta TAKE 1 TABLET DAILY. 04-02 00:00: 00 06-25 00:00 :00 No 20 Delfino Otra naproxen (NAPROSYN) tablet 250 mg 03-20 23:00: 00 Yes 250mg 250 mg, Oral, BID MEALS, First dose on Sat03/20/23 at 1700, Until Discontinu ed, Routine [facility] albuterol sulfate HFA 90 mcg/actuati on aerosol inhaler 03-20 00:00: 00 Yes mcg/act uation Delfino Orta TAKE 1 TABLET BY MOUTH TWICE DAILY FOR 20 DOSES TAKE IN THE MORNINGS AND THE EVENINGS 03-20 00:00: 00 Yes Delfino Orta hydrocortis one 1%-nystatin -zinc oxide Oint ointment 03-20 00:00: 00 Yes [id number] Apply to affected area(s) as needed for Dermatitis /Rash. [facility] albuterol 90 mcg/actuati on inhaler 03-20 00:00: 00 Yes [id number] 2{puff} Inhale 2 Puffs every 6 (six) hours as needed for Wheezing or Shortness of Breath. [facility] naproxen 250 mg tablet 03-20 00:00: 00 03-31 05:59 :00 No [id number] 250mg Take 1 tablet by mouth in the morning and 1 tablet in the evening. Take with meals. Do all this for 20 doses. [facility] Qvar RediHaler 80 mcg/actuati on HFA breath activated aerosol 03-07 00:00: 00 Yes mcg/act uation Delfino Orta TAKE 1 TABLET DAILY. 03-07 00:00: 00 Yes 10 Delfino Orta TAKE 1 TABLET DAILY. 03-07 00:00: 00 Yes [id number] Delfino Orta TAKE 1 TABLET BY MOUTH DAILY 03-07 00:00: 00 Yes 40 Delfino Otra ALBUTEROL PA HFA 200 INH 03-07 00:00: [...] 45 Delfino Orta ATORVASTATI N 40MG 2022-02 0-30 00:00: 00 Yes Delfino Orta CITALOPRAM 20MG 2022-02 030 00:00: 00 Yes Delfino Orta AMLODIPINE 10MG 2022-02 030 00:00: 00 Yes Delfino Orta LOSARTAN/HC T 100-12.5 2022-02 0-30 00:00: 00 Yes Delfino Orta sulfamethox azole 800 mg-trimetho prim 160 mg tablet 11-01 00:00: 00 Yes mg Delfino Orta INHALE 1 TO 2 PUFFS BY MOUTH EVERY 6 HOURS NEEDED. 11-01 00:00: 00 06-25 00:00 :00 No [id number] Delfino Orta TAKE 1 TO 2 TABLETS [...] mcg/actuati on inhaler 09-17 00:00: 00 Yes [id number] 2{puff} Inhale 2 Puffs every 4 (four) hours as needed for Wheezing or Shortness of Breath. [facility] IBUPROFEN 600MG 09-17 00:00: 00 06-25 00:00 :00 No Delfino Orta TAKE 1 TABLET DAILY. 09-12 00:00: 00 06-25 00:00 :00 No [id number] Delfinosurinder Orta TAKE 1 TABLET DAILY. 09-12 00:00: 00 06-25 00:00 :00 No 10 Delfinosurinder Orta 1-2 PUFFS Q 12 HOURS 09-12 00:00: 00 06-25 00:00 :00 No 80 Delfino Endy Orta TAKE 1 TABLET BY MOUTH DAILY 09-12 00:00: 00 06-25 00:00 :00 No 40 Delfino Endy Orta TAKE 1 TABLET DAILY. 09-12 00:00: 00 06-25 00:00 :00 No 10 Delfino Endy Orta INHALE 1 TO 2 PUFFS BY MOUTH EVERY 6 HOURS NEEDED. 09-12 00:00: 00 06-25 00:00 :00 No [id number] Delfino Orta INHALE 2 PUFFS TWICE DAILY. RINSE MOUTH AFTER USE. 09-12 00:00: 00 06-25 00:00 :00 No 220 Delfinosurinder Orta TAKE 1 TO 2 TABLETS AT BEDTIME 09-12 00:00: 00 06-25 00:00 :00 No 25 Delfino Endy Orta ALBUTEROL PA HFA 200 INH 09-06 00:00: 00 Yes Delfino Orta TAKE 1 TABLET DAILY. 08-02 00:00: 00 06-25 00:00 :00 No 75 Delfino Endy Orta TAKE 1 TO 2 TABLETS AT BEDTIME 6 00:00: 00 06-25 00:00 :00 No 25 Delfinosurinder Orta 1-2 PUFFS Q 12 HOURS 5-25 00:00: 00 06-25 00:00 :00 No 80 Delfino Endy Orta INHALE 1 TO 2 PUFFS BY MOUTH EVERY 6 HOURS NEEDED. -24 00:00: 00 06-25 00:00 :00 No [id number] Delfino Orta TAKE 1 TABLET DAILY. 07-04 [...] 07-04 00:00: 00 06-25 00:00 :00 No [id number] Delfino Orta TAKE 1 TABLET DAILY. 07-04 [...] 04-19 00:00: 00 06-25 00:00 :00 No [id number] Delfino Orta TAKE 1 TABLET DAILY. 04-19 [...] 50-200-25 mg tablet 04-03 00:00: 00 Yes [id number] 1{tbl} Take 1 tablet by mouth in the morning. [facility] fluconazole 200 mg tablet 04-03 00:00: 00 Yes [id number] 200mg Take 1 tablet by mouth in the morning. [facility] sulfamethox azole-trime thoprim 800-160 mg per tablet 04-03 00:00: 00 Yes [id number] 1{tbl} Take 1 tablet by mouth in the morning. [facility] sulfamethox azole 800 mg-trimetho prim 160 [...] 03-30 00:00: 00 06-25 00:00 :00 No [id number] Delfino Orta atorvastati n 40 mg tablet 03-30 00:00: 00 06-25 00:00 :00 Eva Orta amlodipine 10 mg tablet 03-29 00:00: 00 06-25 00:00 :00 Eva Orta USE 1 SPRAY IN EACH NOSTRIL [...] 03-06 00:00: 00 06-25 00:00 :00 No [id number] Delfino Orta APPLY OINTMENT 3 TO 4 TIMES PER DAY TO AFFECTED AREA FOR 14 DAYS 02-28 00:00: 00 No 20 APPLY OINTMENT 3 TO 4 TIMES PER DAY TO AFFECTED AREA FOR 14 DAYS 02-28 00:00: 00 06-25 00:00 :00 No 20 Delfino Orta TAKE 1 CAPSULE BY MOUTH EVERY 8 HOURS NEEDED FOR COUGH - 00:00: 00 No 100 TAKE 1 CAPSULE BY MOUTH EVERY 8 HOURS NEEDED FOR COUGH 02-13 00:00: 00 06-25 00:00 :00 No Delfino Orta TAKE 1 TABLET DAILY. 2021-02 00:00: 00 No TAKE 1 TABLET AT BEDTIME. 2021-02 00:00: 00 No APPLY TO AFFECTED AREA ON SKIN TWICE A DAY FOR 5 DAYS 2022-1 2-14 00:00: 00 No FLOVENT HFA 220MCG/A INH 2021-0214 00:00: 00 No ATORVASTATI N CALCIUM 40 MG TABS 2021-02- 00:00: 00 No CYCLOBENZAP RINE HYDROCHLORI DE 5 MG TABS 2021-02 2 00:00: 00 No TIZANIDINE HYDROCHLORI DE 4MG TAB 2021-02 00:00: 00 No LOSARTAN POTASSIUM/H YDROCHLOROT HIAZ YASMIN 100-12.5 MG TABS 2021-02 00:00: 00 No FLUCONAZOLE 150MG TAB 2021-02 00:00: 00 No AMOXICILLIN 875 MG TABS 2021-02 00:00: 00 No TRAZODONE HYDROCHLORI DE 50 MG TABS 2021-02 00:00: 00 No VANCOMYCIN HYDROCHLORI DE 250 MG CAPS 2021-02 00:00: 00 No Dose Unknown 2021-02- 00:00: 00 No Dose Unknown 2021-02 00:00: 00 No Dose Unknown 2021-02 00:00: 00 No Dose Unknown 2021-02 00:00: 00 No TRAMADOL HCL 50 MG TABS 2021-02- 00:00: 00 No IBUPROFEN 400MG TAB 2021-02 2 00:00: 00 No TAKE 1 TABLET BY MOUTH TWICE A DAY FOR 7 DAYS 2021-02 2 00:00: 00 No TAKE 1 TABLET 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 2021-02 2- 00:00: 00 No Dose Unknown 2021-02 2-14 00:00: 00 No Dose Unknown 2021-02 2-14 00:00: 00 No Dose Unknown 2021-02 2-14 00:00: 00 No MIRTAZAPINE 15MG TAB 2021-02 2-14 00:00: 00 No Dose Unknown 2021-02 2-14 00:00: 00 No Dose Unknown 2021-02 2-14 00:00: 00 No Dose Unknown 2021-02 2-14 00:00: 00 No Dose Unknown 2021-02 2-14 00:00: 00 No NYSTATIN [id number] ROOPA 20203-14 00:00: 00 No CITALOPRAM HYDROBROMID E 20MG [...] :00 Eva Orta AMOXICILLIN 875 MG TABS 2021-02 00:00: 00 06-25 00:00 :00 Eva Orta VANCOMYCIN HYDROCHLORI DE 250 MG CAPS 2021-02 00:00: 00 06-25 00:00 :00 No Delfino Orta Dose Unknown 2021-02 00:00: 00 06-25 00:00 :00 No Delfino Orta Dose Unknown 2021-02 00:00: 00 06-25 00:00 :00 No Delfino F You Dose Unknown 2021-02 2-14 00:00: 00 06-25 00:00 :00 No Delfino F You Dose Unknown 2021-02-14 00:00: 00 06-25 00:00 :00 No Delfino F You TRAMADOL HCL 50 MG TABS 2021-02 2-14 00:00: 00 06-25 00:00 :00 No Delfino F You IBUPROFEN 400MG TAB 2021-02-14 00:00: 00 06-25 00:00 :00 No Delfino F You TAKE 1 TABLET BY MOUTH TWICE A DAY FOR 7 DAYS 2021-02- 00:00: 00 06-25 00:00 :00 No Delfino F You TAKE 1 TABLET 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 2021-02 2 00:00: 00 06-25 00:00 :00 No Delfino F You Dose Unknown 2021-02- 00:00: 00 06-25 00:00 :00 No Delfino F You Dose Unknown 2021-02 2-14 00:00: 00 06-25 00:00 :00 No Delfino F You Dose Unknown 2021-02- 00:00: 00 06-25 00:00 :00 No Delfino F You MIRTAZAPINE 15MG TAB 2021-02 214 00:00: 00 06-25 00:00 :00 No Delfino F You Dose Unknown 2021-02 2- 00:00: 00 06-25 00:00 :00 No Delfino F You Dose Unknown 2021-02 2-14 00:00: 00 06-25 00:00 :00 No Delfino F You Dose Unknown 2021-02 2-14 00:00: 00 06-25 00:00 :00 No Delfino F You Dose Unknown 2021-02 2-14 00:00: 00 06-25 00:00 :00 No Delfino F You NYSTATIN [id number] ROOPA 2021-02 2-14 00:00: 00 06-25 00:00 :00 No Delfino F You CITALOPRAM HYDROBROMID E 20MG TAB 2021-02 00:00: 00 06-25 00:00 :00 No Delfino Endy Orta Dose Unknown 2021-02 00:00: 00 06-25 00:00 :00 No Delfino Endy You TAKE 1 TABLET AT BEDTIME NEEDED. 2021-02 [...] You FLUTICASONE PROPIONATE 50 MCG/ACT SUSP 2021-02 00:00: 00 06-25 00:00 :00 No Delfino Orta TAKE 1 TABLET BID NEEDED 2021-02 00:00: 00 06-25 00:00 :00 No 600 Delfino Endy Orta ALBUTEROL SULFATE HFA 108 (90 Base) MCG/ACT AERS 2021-02 00:00: 00 06-25 00:00 :00 No Delfino Orta TAKE 1 TABLET DAILY. 11-06 00:00: 00 06-25 00:00 :00 No 10 Delfino Orta ALLOPURINOL 100 MG TABS - 00:00: 00 06-25 00:00 :00 No Delfino Orta AMLODIPINE BESYLATE 10MG TAB 8-18 00:00: 00 Yes Delfino Orta AMLODIPINE BESYLATE 10MG TAB 8-18 00:00: 00 No AMLODIPINE BESYLATE 10MG TAB 8-18 00:00: 00 No AMLODIPINE BESYLATE 10MG TAB 8-18 00:00: 00 No TAKE BY MOUTH 6 MILLILITERS 4 TIMES A DAY FOR 14 DAYS 7-20 00:00: 00 Yes Delfino Orta FLUTICASONE PROPIONATE 50MCG RX SPR 0 08-30 00:00: 00 Yes Delfino Orta TAKE BY MOUTH 6 MILLILITERS 4 TIMES A DAY FOR 14 DAYS 0 -20 00:00: 00 No Dose Unknown 0 - 00:00: 00 No TAKE BY MOUTH 6 MILLILITERS 4 TIMES A DAY FOR 14 DAYS 0 -20 00:00: 00 No FLUTICASONE PROPIONATE 50MCG RX SPR 0 08-30 00:00: 00 No TAKE BY MOUTH 6 MILLILITERS 4 TIMES A DAY FOR 14 DAYS 0 08-30 00:00: 00 No Dose Unknown 0 08-30 00:00: 00 No losartan 100 mg-hydrochl orothiazide [...] 08-07 00:00: 00 Yes Delfino Orta &lt 2021-0 08-07 00:00: 00 Yes Delfino Orta &lt 2021-0 08-07 00:00: 00 Yes Delfino Orta &lt 2021-0 08-07 00:00: 00 Yes Delfino Orta losartan [...] &lt 0 08-07 00:00: 00 No &lt 2021-0 08-07 00:00: 00 No &lt 2021-0 08-07 00:00: 00 No &lt 0 08-07 00:00: 00 No losartan 100 [...] propionate 50 mcg/actuati on nasal spray,suspe nsion 2-0 08-07 00:00: 00 No 1mcg/ac tuation &lt 2022-0 08-07 00:00: 00 No &lt 2022-0 08-07 00:00: 00 No &lt 2022-0 08-07 00:00: 00 No &lt 2022-0 08-07 00:00: 00 No Dose Unknown 2021-0 08-07 00:00: 00 05- 00:00 :00 No 400 Delfino Orta &lt 2022-0 08-04 00:00: 00 Yes Delfinosurinder Orta &lt 2022-0 08-04 00:00: 00 No &lt 2022-0 08-04 00:00: 00 No &lt 2022-0 08-04 00:00: 00 No mirtazapine 45 mg tablet 2021-0 08-02 00:00: 00 Yes 1mg Delfino Endy You mirtazapine 45 mg tablet 2021-0 08-02 00:00: 00 No 1mg TAKE 1 TABLET AT BEDTIME. 2021-0 08-02 00:00: 00 No mirtazapine 45 mg tablet 2-0 08-02 00:00: 00 No 1mg &lt 2022-0 07-28 00:00: 00 Yes Delfino Orta &lt 2022-0 07-28 00:00: 00 Yes Delfino Orta &lt 2022-0 07-28 00:00: 00 No &lt 2022-0 6-17 00:00: 00 No &lt 2022-0 6-17 00:00: 00 No &lt 2022-0 6-17 00:00: 00 No &lt 2022-0 6-17 00:00: 00 No &lt 2022-0 17 00:00: 00 No imiquimod 3.75 % topical cream in a pump 2021-0 07-03 00:00: 00 Yes 1% Delfino Endy You fluconazole 150 mg tablet 0 07-03 00:00: 00 Yes 1mg Delfino Endy You fluticasone propionate 50 mcg/actuati on nasal spray,suspe nsion 2021-0 07-03 00:00: 00 Yes 1mcg/ac tuation Delfino [...] 07-03 00:00: 00 06-25 00:00 :00 No [id number] Delfino Orta sulfamethox azole-trime thoprim 800-160 mg per tablet 06-15 00:00: 00 04-03 00:00 :00 No [id number] 1{tbl} Take 1 tablet by mouth daily. [facility] ALPRAZOLAM ORAL 06-14 17:22: 53 Yes Take by mouth. [facility] efavirenz 600 mg tablet 06-14 00:00: 00 Yes [id number] 600mg Take 1 tablet by mouth daily. [facility] metoprolol tartrate 25 mg tablet 06-14 00:00: 00 Yes [id number] 12.5mg Take 0.5 tablets by mouth 2 (two) times daily. [facility] nystatin 100,000 unit/mL suspension 06-14 00:00: 00 Yes [id number] Take 5 mL by mouth 4 (four) times daily. [facility] amoxicillin -clavulanat e 875-125 mg per tablet 5- 00:00: 00 04-03 00:00 :00 No [id number] 1{tbl} Take 1 tablet by mouth every 12 (twelve) hours. [facility] lamiVUDine 150 mg tablet - 00:00: 00 04-03 00:00 :00 No [id number] 150mg Take 1 tablet by mouth 2 (two) times daily. [facility] ProAir HFA 90 mcg/actuati on aerosol inhaler - 00:00: 00 Yes 2mcg/ac tuation Delfino Orta atorvastati n 40 mg tablet - 00:00: 00 Yes 1mg Delfino Orta amlodipine [...] - 00:00: 00 Yes 1mg Delfino Orta fluticasone [...] 00 No 1mg amlodipine 10 mg tablet 4 00:00: 00 No 1mg allopurinol 100 mg tablet 4 00:00: 00 No 1mg mirtazapine 45 mg tablet 4 00:00: 00 No 1mg Dose Unknown 4 00:00: 00 No Dose Unknown 4- 00:00: 00 No Dose Unknown 0 4- 00:00: 00 No Dose Unknown 4- 00:00: 00 No Dose Unknown 4 00:00: 00 No fluticasone propionate 50 mcg/actuati on nasal spray,suspe nsion 4- 00:00: 00 No 1mcg/ac tuation ProAir HFA [...] :00 No 100 Delfino Orta Dose Unknown 0 05-03 00:00: 00 Yes Delfino Orta Dose Unknown 0 3 00:00: 00 Yes Delfino Orta Dose Unknown 0 3 00:00: 00 Yes Delfino rOta Dose Unknown 0 3 00:00: 00 No Dose Unknown 0 3 00:00: 00 No Dose Unknown 0 3 00:00: 00 No Dose Unknown 0 3 00:00: 00 No Dose Unknown 0 3 00:00: 00 No Dose Unknown 0 3 00:00: 00 No Dose Unknown 0 3 00:00: 00 No Dose Unknown 0 3 00:00: 00 No Dose Unknown 0 3 00:00: 00 No FLOVENT HFA 220MCG/A INH 0 323 00:00: 00 06-25 00:00 :00 No [id number] Dlefino Orta Dose Unknown 0 3 00:00: 00 Yes Delfino Orta Dose Unknown 0 05-01 00:00: 00 No Dose Unknown 2022-0 3-21 [...] 00:00: 00 No 1mcg/ac tuation Dose Unknown 2022-0 1-26 00:00: 00 No fluticasone propionate 50 mcg/actuati on nasal spray,suspe nsion 2022-0 1-26 00:00: 00 No 1mcg/ac tuation Dose Unknown 2022-0 1-26 00:00: 00 No fluticasone propionate 50 mcg/actuati on nasal spray,suspe nsion 2022-0 1-26 00:00: 00 No 1mcg/ac tuation sulfamethox azole [...] Delfino Orta Dose Unknown 2020-02 00:00: 00 No Dose Unknown 2020-02 00:00: 00 No Dose Unknown 2020-02 00:00: 00 No Dose Unknown 2020-02 00:00: 00 Yes Delfino Orta Dose Unknown 2020-02 2 00:00: 00 Yes Delfino Orta ibuprofen 600 mg tablet 2020-02 00:00: 00 Yes 1mg Delfino Orta tizanidine 4 mg tablet 2020-02 00:00: 00 Yes 1mg Delfino Orta fluticasone [...] nasal spray,suspe nsion 2020-02 2 00:00: 00 No 1mcg/ac tuation Dose Unknown 2020-02 2- 00:00: 00 No Dose Unknown 2020-02 2 00:00: 00 No tizanidine 4 mg tablet 2020-02 2- 00:00: 00 No 1mg Dose Unknown 2020-02 2 00:00: 00 No fluticasone propionate 50 mcg/actuati [...] 50 mcg/actuati on nasal spray,suspe nsion 2020-02 0 00:00: 00 No 1mcg/ac tuation imiquimod 3.75 [...] 100 mg tablet 09-30 00:00: 00 Yes [id number] 100mg Take 1 tablet by mouth daily. [facility] Flovent HFA 220 mcg/actuati on aerosol [...] 10 mg tablet 08-12 00:00: 00 Yes [id number] 10mg Take 1 tablet by mouth daily. [facility] atorvastati n 40 mg tablet 08-12 00:00: 00 Yes [id number] 40mg Take 1 tablet by mouth at bedtime. [facility] fluticasone propionate 50 mcg/actuati on nasal spray 07-20 00:00: 00 Yes [id number] 2{spray } Use 2 Sprays in each nostril daily. [facility] fluticasone propionate (FLOVENT HFA) 220 mcg/actuati on inhaler 07-20 00:00: 00 Yes [id number] 2{puff} Inhale 2 Puffs every 12 (twelve) hours. [facility] albuterol 90 mcg/actuati on inhaler 07-20 00:00: 00 03-20 00:00 :00 No [id number] 2{puff} Inhale 2 Puffs every 4 (four) hours as needed for Wheezing or Shortness of Breath. [facility] ibuprofen 800 mg tablet 07-19 00:00: 00 Yes 1mg Delifno Orta ibuprofen 800 mg tablet 07-19 00:00: 00 No 1mg ibuprofen 800 mg tablet 07-19 00:00: 00 No 1mg ibuprofen 800 mg tablet 07-19 00:00: 00 No 1mg ProAir HFA 90 mcg/actuati on aerosol inhaler 07-12 00:00: 00 Yes 1mcg/ac tuation Delfino F You Epzicom 600 mg-300 mg tablet 07-12 00:00: [...] 1mcg/ac tuation Voltaren 1 % topical gel 04-22 00:00: 00 Yes 1% Delfino F You mirtazapine 45 mg tablet - 00:00: 00 Yes 1mg Delfino F You Tessalon Perles 100 mg capsule - 00:00: 00 Yes 12mg Delfino F You Voltaren 1 % topical gel - 00:00: 00 No 1% mirtazapine 45 mg tablet 04-22 00:00: 00 No 1mg Tessalon Perles 100 mg capsule 3-12 00:00: 00 No 12mg Voltaren 1 % topical gel 3-12 00:00: 00 No 1% mirtazapine 45 mg tablet 3-12 00:00: 00 No 1mg Tessalon Perles 100 mg capsule 3-12 00:00: 00 No 12mg Voltaren 1 % topical gel 3- 00:00: 00 No 1% mirtazapine 45 mg tablet 3- 00:00: 00 No 1mg Tessalon Perles 100 mg capsule 3 00:00: 00 No 12mg fluticasone propionate 50 mcg/actuati on nasal spray,suspe nsion - 00:00: 00 Yes 1mcg/ac tuation Delfino Orta fluticasone propionate 50 mcg/actuati on nasal spray,suspe nsion - 00:00: 00 No 1mcg/ac tuation fluticasone propionate 50 mcg/actuati on nasal spray,suspe nsion - 00:00: 00 No 1mcg/ac tuation fluticasone propionate 50 mcg/actuati on nasal spray,suspe nsion - 00:00: 00 No 1mcg/ac tuation Flovent [...] No 1mg mirtazapine 45 mg tablet 0 06-23 00:00: 00 No 1mg hydroxyzine pamoate [...] mg (65 mg iron) tablet,ruchi yed release 24 00:00: 00 Yes 1(65 mg iron) Delfino Orta fluticasone propionate 50 mcg/actuati on nasal spray,suspe nsion 24 00:00: 00 Yes 1mcg/ac tuation Delfino Orta [...] propionate 50 mcg/actuati on nasal spray,suspe nsion 3-24 00:00: 00 No 1mcg/ac tuation hydroxyzine pamoate 50 mg capsule 0 3-24 00:00: 00 No 1mg metronidazo le 500 mg tablet 2-21 00:00: 00 Yes 1mg Delfino Orta metronidazo le 500 mg tablet 2-21 00:00: 00 No 1mg metronidazo le 500 mg tablet 0 2-21 00:00: 00 No 1mg metronidazo le 500 mg tablet 2 00:00: 00 No 1mg fluconazole 150 mg tablet 218 00:00: 00 Yes 1mg Delfino Orta fluconazole 150 mg tablet 2-18 00:00: 00 No 1mg fluconazole 150 mg tablet 218 00:00: 00 No 1mg fluconazole 150 mg tablet 218 00:00: 00 No 1mg Flovent HFA 220 mcg/actuati on aerosol inhaler 0 2-11 00:00: 00 Yes 2mcg/ac tuation Delfino Orta ProAir HFA 90 mcg/actuati on aerosol inhaler 2-11 00:00: 00 Yes 1mcg/ac tuation Delfino Orta Epzicom 600 mg-300 mg tablet 2-11 00:00: 00 Yes 1mg Delfino Orta Flovent HFA 220 mcg/actuati on aerosol inhaler 2-11 00:00: 00 No 2mcg/ac tuation Flovent HFA 220 mcg/actuati on aerosol inhaler 0 2-11 00:00: 00 No 2mcg/ac tuation ProAir HFA 90 mcg/actuati on aerosol inhaler 0 2-11 00:00: 00 No 1mcg/ac tuation Epzicom 600 mg-300 mg tablet 2-11 00:00: 00 No 1mg ProAir HFA 90 mcg/actuati on aerosol inhaler 0 2-11 00:00: 00 No 1mcg/ac tuation Epzicom 600 mg-300 mg tablet 2-11 00:00: 00 No 1mg Flovent HFA 220 mcg/actuati on aerosol inhaler 0 2-11 00:00: 00 No 2mcg/ac tuation ProAir HFA 90 mcg/actuati on aerosol inhaler 0 2-11 00:00: 00 No 1mcg/ac tuation Epzicom 600 mg-300 mg tablet 2-11 00:00: 00 No 1mg ProAir HFA 90 mcg/actuati on aerosol inhaler 0 1-16 00:00: 00 Yes 1mcg/ac tuation Delfino Orta ProAir HFA 90 mcg/actuati on aerosol inhaler 0 1-16 00:00: 00 No 1mcg/ac tuation ProAir HFA 90 mcg/actuati on aerosol inhaler 0 1-16 00:00: 00 No 1mcg/ac tuation ProAir HFA 90 mcg/actuati on aerosol inhaler 0 1-16 00:00: 00 No 1mcg/ac tuation Flovent HFA 220 mcg/actuati on aerosol inhaler 0 - 00:00: 00 Yes 2mcg/ac tuation Delfino Orta allopurinol 100 mg tablet - 00:00: 00 Yes 1mg Delfino Orta losartan 100 mg tablet - 00:00: 00 Yes 1mg Delfino Orta amlodipine 10 mg tablet - 00:00: 00 Yes 1mg Delfino Orta atorvastati n 40 mg tablet 02-18 00:00: 00 Yes 1mg Delfino Orta citalopram 20 mg tablet - 00:00: 00 Yes 1mg Delfino Orta montelukast 10 mg tablet - 00:00: 00 Yes 1mg Delfino Orta mirtazapine 30 mg tablet 02-18 00:00: 00 Yes 1mg Delfino Orta ferrous sulfate 325 mg (65 mg iron) tablet,ruchi yed release - 00:00: 00 Yes 1(65 mg iron) Delfino Orta fluticasone propionate 50 mcg/actuati on nasal spray,suspe nsion - 00:00: 00 Yes 1mcg/ac tuation Delfino Orta indomethaci n 25 mg capsule - 00:00: 00 Yes 1mg Delfino Orta Flovent [...] tablet 2018-02 00:00: 00 Yes 1mg Delfino Endy Orta fluticasone propionate 50 mcg/actuati on nasal [...] fluticasone propionate 50 mcg/actuati on nasal spray,suspe nsdeandre 2018-02 00:00: 00 No 1mcg/ac tuation ProAir [...] tablet 2018-02 00:00: 00 Yes 1mg Delfino Endy You mirtazapine 30 mg tablet 2018-02 00:00: 00 [...] No 1mg indomethaci n 25 mg capsule 2018-0212 00:00: 00 No 1mg fluticasone propionate 50 [...] 024 00:00: 00 Yes 2mcg/ac tuation Delfino Orta Flovent HFA 220 mcg/actuati on aerosol inhaler 2018-02 024 00:00: 00 No 2mcg/ac tuation Flovent HFA 220 mcg/actuati on aerosol inhaler 2018-02 024 00:00: 00 No 2mcg/ac tuation Flovent HFA 220 mcg/actuati on aerosol inhaler 2018-02 024 00:00: 00 No 2mcg/ac tuation Bactrim DS 800 mg-160 mg tablet 2018-02 021 00:00: 00 Yes 1mg Delfino Orta Bactrim DS 800 mg-160 mg tablet 2018-02 021 00:00: 00 No 1mg Bactrim DS 800 mg-160 mg tablet 2018-02 021 00:00: 00 No 1mg Bactrim DS 800 mg-160 mg tablet 2018-02 021 00:00: 00 No 1mg Flovent HFA 220 mcg/actuati on aerosol inhaler 2018-02 0-16 00:00: 00 Yes 2mcg/ac tuation Delfino Orta ProAir HFA 90 mcg/actuati on aerosol inhaler 2018-02 016 00:00: 00 Yes 1mcg/ac tuation Delfino Orta allopurinol 100 mg tablet 2018-02 0-16 00:00: 00 Yes 1mg Delfino Orta amlodipine 10 mg tablet 2018-0216 00:00: 00 Yes 1mg Delfino Orta mirtazapine [...] mg tablet 2018-0216 00:00: 00 No 1mg Flovent HFA 220 mcg/actuati on aerosol inhaler 2018-0216 00:00: 00 No 2mcg/ac tuation ProAir HFA 90 mcg/actuati on aerosol inhaler 2018-0216 00:00: 00 No 1mcg/ac tuation allopurinol 100 mg tablet 2018-0216 00:00: 00 No 1mg amlodipine 10 mg tablet 2018-0216 00:00: 00 No 1mg mirtazapine 30 mg tablet 2018-0216 00:00: 00 No 1mg Flovent HFA 220 [...] 2018-02 009 00:00: 00 Yes 1mg Delfino Orta fluticasone [...] nsion 2018-02 00:00: 00 No 1mcg/ac tuation chlorhexidi ne (PERIDEX) 0.12 % mouthwash 2018-02 00:00: 00 Yes [id number] 15mL Swish and spit out 15 mL 2 (two) times daily. [facility] allopurinol 100 mg tablet 11-03 00:00: [...] on aerosol inhaler 0 10-14 00:00: 00 Yes 1mcg/ac tuation Delfino [...] No 1mcg/ac tuation loratadine 10 mg tablet 0 10-14 00:00: 00 No 1mg cyclobenzap rine [...] 00 No 1mg amlodipine 10 mg tablet 312 00:00: 00 Yes 1mg Delfino Orta amlodipine 10 mg tablet - 00:00: 00 No 1mg amlodipine 10 mg tablet 04-22 00:00: 00 No 1mg amlodipine 10 mg tablet 12 00:00: 00 No 1mg Flovent HFA 220 mcg/actuati on aerosol inhaler 2017-02 0 00:00: 00 Yes 2mcg/ac tuation Delfino Orta ProAir HFA 90 mcg/actuati on aerosol inhaler 2017-02 0- 00:00: 00 Yes 1mcg/ac tuation Delfino Orta [...] 1mcg/ac tuation citalopram 20 mg tablet 2017-02 0 00:00: 00 No 1mg Keflex 500 mg capsule 2017-02 0 00:00: 00 No 1mg nystatin 100,000 unit/mL oral suspension 2017-02 0 00:00: 00 No 5unit/m L Flovent HFA 220 mcg/actuati on aerosol inhaler 2017-02 0 00:00: 00 No 2mcg/ac tuation ProAir HFA 90 mcg/actuati on aerosol inhaler 2017-02 0 00:00: 00 No 1mcg/ac tuation citalopram 20 mg tablet 2017-02 0 00:00: 00 No 1mg Keflex 500 mg capsule 2017-02 0 00:00: 00 No 1mg nystatin 100,000 unit/mL oral suspension 2017-02 0 00:00: 00 No 5unit/m L Flovent HFA 220 mcg/actuati on aerosol inhaler 2017-02 0 00:00: 00 No 2mcg/ac tuation ProAir HFA 90 mcg/actuati on aerosol inhaler 2017-02 0 00:00: 00 No 1mcg/ac tuation citalopram 20 mg tablet 2017-02 0 00:00: 00 No 1mg Keflex 500 mg capsule 2017-02 0 00:00: 00 No 1mg nystatin 100,000 unit/mL oral suspension 2017-02 0 00:00: 00 No 5unit/m L triamcinolo ne [...] Take 1 Cap by mouth at bedtime. [facility] Bictegravir -Emtricitab -Tenofov 50-200-25 MG Bictegravir [...] A-Hep B Hep A-Hep B 2023-11-19 00:00:00 Olaf Orta SHINGRIX VACCINE SHINGRIX VACCINE 2023-11-19 00:00:00 Olaf Orta Prevnar 20 Prevnar 20 2023-11-19 00:00:00 Olaf Orta nfluenza, recombinant nfluenza, recombinant 2023-09-25 00:00:00 Olaf Orta RSV Recombinant, Arexvy 0.5ML RSV Recombinant, Arexvy 0.5ML 2023-09-25 00:00:00 Olaf Orta Hep A-Hep B Hep A-Hep B 2022-09-24 00:00:00 Olaf Orta influenza, injectable influenza, injectable 2022-09-24 00:00:00 Olaf Orta SHINGRIX VACCINE SHINGRIX VACCINE 2022-09-24 00:00:00 Olaf Orta Hep A-Hep B Hep A-Hep B 2022-09-24 00:00:00 Olaf Orta influenza, injectable influenza, injectable 2022-09-24 00:00:00 Olaf Orta SHINGRIX VACCINE SHINGRIX VACCINE 2022-09-24 00:00:00 Olaf Bradford (Cilgavimab) 2021-06-13 00:00:00 Completed [facility] Evusheld (Tixagevimab) 2021-06-13 00:00:00 Completed [facility] Evusheld (Cilgavimab) 2021-06-13 00:00:00 Completed [facility] Evusheld (Tixagevimab) 2021-06-13 00:00:00 Completed [facility] Evusheld (Cilgavimab) 2021-06-13 00:00:00 Completed [facility] Evusheld (Tixagevimab) 2021-06-13 00:00:00 Completed [facility] Evusheld (Cilgavimab) 2021-06-13 00:00:00 Completed [facility] Evusheld (Tixagevimab) 2021-06-13 00:00:00 Completed [facility] Evusheld (Cilgavimab) 2021-06-13 00:00:00 Completed [facility] Evusheld (Tixagevimab) 2021-06-13 00:00:00 Completed [facility] Evusheld (Cilgavimab) 2021-06-13 00:00:00 Completed [facility] Evusheld (Tixagevimab) 2021-06-13 00:00:00 Completed [facility] Evusheld (Cilgavimab) 2021-06-13 00:00:00 Completed [facility] Evusheld (Tixagevimab) 2021-06-13 00:00:00 Completed [facility] Evusheld (Cilgavimab) 2021-06-13 00:00:00 Completed [facility] Evusheld (Tixagevimab) 2021-06-13 00:00:00 Completed [facility] Evusheld (Cilgavimab) 2021-06-13 00:00:00 Completed [facility] Evusheld (Tixagevimab) 2021-06-13 00:00:00 Completed [facility] Evusheld (Cilgavimab) 2021-06-13 00:00:00 Completed [facility] Evusheld (Tixagevimab) 2021-06-13 00:00:00 Completed [facility] Moderna COVID-19 Vaccine Moderna COVID-19 Vaccine 2021-02-20 [...] Delfino Orta TDAP 2014-08-19 00:00:00 Completed [facility] TDAP 2014-08-19 00:00:00 Completed [facility] TDAP 2014-08-19 00:00:00 Completed [facility] TDAP 2014-08-19 00:00:00 Completed [facility] TDAP 2014-08-19 00:00:00 Completed [facility] TDAP 2014-08-19 00:00:00 Completed [facility] TDAP 2014-08-19 00:00:00 Completed [facility] TDAP 2014-08-19 00:00:00 Completed [facility] TDAP 2014-08-19 00:00:00 Completed [facility] TDAP 2014-08-19 00:00:00 Completed [facility] Influenza Virus Vaccine 2012-01-21 00:00:00 Completed [facility] Influenza Virus Vaccine 2012-01-21 00:00:00 Completed [facility] Influenza Virus Vaccine 2012-01-21 00:00:00 Completed [facility] Influenza Virus Vaccine 2012-01-21 00:00:00 Completed [facility] Influenza Virus Vaccine 2012-01-21 00:00:00 Completed [facility] Influenza Virus Vaccine 2012-01-21 00:00:00 Completed [facility] Influenza Virus Vaccine 2012-01-21 00:00:00 Completed [facility] Influenza Virus Vaccine 2012-01-21 00:00:00 Completed [facility] Influenza Virus Vaccine 2012-01-21 00:00:00 Completed [facility] Influenza Virus Vaccine 2012-01-21 00:00:00 Completed [facility] Influenza Virus Vaccine Unknown Completed [facility] TDAP Unknown Completed [facility] Evusheld (Cilgavimab) Unknown Completed [facility] Evusheld (Tixagevimab) Unknown Completed [facility] Influenza Virus Vaccine Unknown Completed [facility] TDAP Unknown Completed [facility] Evusheld (Cilgavimab) Unknown Completed [facility] Evusheld (Tixagevimab) Unknown Completed [facility] Influenza Virus Vaccine Unknown Completed [facility] TDAP Unknown Completed [facility] Evusheld (Cilgavimab) Unknown Completed [facility] Evusheld (Tixagevimab) Unknown Completed [facility] Influenza Virus Vaccine Unknown Completed [facility] TDAP Unknown Completed [facility] Evusheld (Cilgavimab) Unknown Completed [facility] Evusheld (Tixagevimab) Unknown Completed [facility] Vital Signs Vital Name Observation Time Observation Value Comments S ource height 2023-11-11 15:00:00 62.5 [in_i] Comm on [facility] weight 2023-11-11 15:00:00 118.2 [lb_av] Co mmon [facility] temperature 2023-11-11 15:00:00 97.8 [degF] Com mon [facility] bmi 2023-11-11 15:00:00 21.27 kg/m2 Comm on [facility] oximetry 2023-11-11 15:00:00 93 % Commo n [facility] respiratory rate 2023-11-11 15:00:00 18 /min Common [facility] blood pressure systolic 2023-11-11 15:00:00 114 mm[Hg] [facility] blood pressure diastolic 2023-11-11 15:00:00 68 mm[Hg] [facility] Respiratory rate 2023-05-20 20:47:00 16 /min [facility] Oxygen saturation in Arterial blood by Pulse oximetry 2023-05-20 20:47:00 97 /min [facility] Systolic blood pressure 2023-05-20 16:21:00 136 mm[Hg] [facility] Diastolic blood pressure 2023-05-20 16:21:00 81 mm[Hg] [facility] Heart rate 2023-05-20 16:21:00 81 /min [facility] Body temperature 2023-05-20 16:21:00 36.17 [facility] Body weight 2023-05-20 08:12:00 57.063 kg [facility] BMI 2023-05-20 08:12:00 22.28 kg/m2 [facility] hospital Body height 2023-05-16 20:58:00 160 cm [facility] Systolic blood pressure 2023-03-20 16:43:00 154 mm[Hg] [facility] Diastolic blood pressure 2023-03-20 16:43:00 87 mm[Hg] [facility] Heart rate 2023-03-20 16:43:00 77 /min [facility] Body temperature 2023-03-20 16:43:00 36.39 [facility] Respiratory rate 2023-03-20 16:43:00 16 /min [facility] [facility] Body height 2023-03-20 16:43:00 160 cm General acute hospital Body weight 2023-03-20 16:43:00 51.71 kg General acute hospital BMI 2023-03-20 16:43:00 20.19 kg/m2 General acute hospital Oxygen saturation in Arterial blood by Pulse oximetry 2023-03-20 16:43:00 100 /min [facility] Systolic blood pressure 2022-09-17 19:28:58 166 mm[Hg] [facility] Diastolic blood pressure 2022-09-17 19:28:58 103 mm[Hg] [facility] Heart rate 2022-09-17 19:28:58 78 /min [facility] Body temperature 2022-09-17 19:28:58 37.06 [facility] Respiratory rate 2022-09-17 19:28:58 18 /min [facility] Oxygen saturation in Arterial blood by Pulse oximetry 2022-09-17 19:28:58 98 /min [facility] Body height 2022-09-17 16:43:00 160 cm General acute hospital Body weight 2022-09-17 16:43:00 51.71 kg General acute hospital BMI 2022-09-17 16:43:00 20.19 kg/m2 [facility] Systolic blood pressure 2022-04-03 19:20:00 106 mm[Hg] [facility] Diastolic blood pressure 2022-04-03 19:20:00 72 mm[Hg] [facility] Heart rate 2022-04-03 19:20:00 104 /min [facility] Body temperature 2022-04-03 19:20:00 36.22 [facility] Respiratory rate 2022-04-03 19:20:00 18 /min [facility] Body height 2022-04-03 19:20:00 162.6 cm [facility] Body weight 2022-04-03 19:20:00 46.72 kg [facility] BMI 2022-04-03 19:20:00 17.68 kg/m2 General acute hospital Oxygen saturation in Arterial blood by Pulse oximetry 2022-04-03 19:20:00 89 /min [facility] Systolic blood pressure 2021-07-18 20:42:00 174 mm[Hg] [facility] Diastolic blood pressure 2021-07-18 20:42:00 98 mm[Hg] [facility] Heart rate 2021-07-18 20:42:00 104 /min [facility] Body temperature 2021-07-18 20:42:00 35.72 [facility] Body height 2021-07-18 20:42:00 160 cm General acute hospital Body weight 2021-07-18 20:42:00 56.246 kg General acute hospital BMI 2021-07-18 20:42:00 21.97 kg/m2 General acute hospital BP Systolic 2024-03-09 09:06:00 144 mm[Hg] Step hen F You BP Diastolic 2024-03-09 09:06:00 80 mm[Hg] Samm phen F You Weight Measured 2024-03-09 09:06:00 130.00 pounds Delfino F You Height Measured 2024-03-09 09:06:00 63.00 inches Delfino F You Body Temperature 2024-03-09 09:06:00 97.80 degrees Delfino F You Heart Rate 2024-03-09 09:06:00 79.00 /min Araceli en F You Respiratory Rate 2024-03-09 09:06:00 Delfino F You BP Systolic 2024-02-26 11:24:00 124 mm[Hg] Step hen F You BP Diastolic 2024-02-26 11:24:00 79 mm[Hg] Samm phen F You Weight Measured 2024-02-26 11:24:00 122.20 pounds Delfino F You Height Measured 2024-02-26 11:24:00 63.00 inches Delfino F You Body Temperature 2024-02-26 11:24:00 98.20 degrees Delfino F You Heart Rate 2024-02-26 11:24:00 90.00 /min Araceli en F You Respiratory Rate 2024-02-26 11:24:00 17.00 /min Delfino F You BP Systolic 2024-02-07 11:22:00 125 mm[Hg] Step hen F You BP Diastolic 2024-02-07 11:22:00 76 mm[Hg] Samm phen F You Weight Measured 2024-02-07 11:22:00 121.80 pounds Delfino F You Height Measured 2024-02-07 11:22:00 63.00 inches Delfino F You Body Temperature 2024-02-07 11:22:00 97.90 degrees Delfino [...] BUN, CREATININE, CA) 2023-05-20 08:28:00 Dawn Eddy [facility] CBC WITH DIFF 2023-05-20 08:28:00 Dawn Eddy Frances [facility] TROPONIN I 2023-05-19 10:21:00 [facility]OLIC [facility]EL (NA, K, CL, CO2, GLUCOSE, BUN, CREATININE, CA) 2023-05-19 10:21:00 Dawn Eddy [facility] LIPID PANEL (41008)(TOTAL CHOLESTEROL, TRIGLYCERIDES, HDL) 2023-05-19 10:21:00 Regis, Qiangjun [facility] CD4 SUBSET ASSAY 2023-05-19 10:21:00 Daniel Arreaga [facility] UREA NITROGEN URINE 2023-05-18 08:30:00 Lefty Abreu [facility] COMP. METABOLIC PANEL (55584) 2023-05-17 18:43:00 Ayde Hearnherine [facility] CBC WITH DIFF 2023-05-17 18:43[facility]00 [facility]OSCOPIC 2023-05-17 14:17:00 Essence Abre[facility] SODIUM, URINE RANDOM 2023-05-17 14:16:00 [facility] PROTEIN CREAT RATIO URINE RANDOM 2023-05-17 14:16:00 [facility] TROPONIN I 2023-05-17 13:54:00 Lefty [facility] TRANSTHORACIC ECHO (TTE) COMPLETE 2023-05-17 12:45:00 Kvng Roberson [facility] CREATININE 2023-05-17 03:28:00 [facility] 2023-05-16 21:13:00 Kvng Roberson [facility] ACUTE CARE VENOUS BLOOD GAS 2023-05-16 18:21:00 [facility]W 2023-05-16 18:00:09 Anyi Hearn [facility] LIPASE 2023-05-16 17:40:00 [facility] TROPONIN I 2023-05-16 17:40:00 Ezra Anyi [facility] COMP. METABOLIC PANEL (43965) 2023-05-16 17:40:00 Ayde Hearnherine [facility] CBC WITH DIFF 2023-05-16 17:40:00 [facility] ROUTINE & RHYTHM STRIP 2023-05-16 17:21:17 Ayde Hearnherine [facility] ASSIGNMENT OF BENEFITS 2023-03-20 17:45:01 Docto r Unassigned, [place] [facility] CONSENT/REFUSAL FOR DIAGNOSIS AND TREATMENT 2023-03-20 16:29:12 Doctor Unassigned, [place] [facility] XR SPINE THORACIC 2 VW 2022-09-17 18:21:00 Vannesa Hobbs [facility] CONSENT/REFUSAL FOR DIAGNOSIS AND TREATMENT 2022-09-17 16:35:17 Doctor Unassigned, [place] [facility] REFERRAL- REQUEST/RESPONSE 2022-06-05 05:01:00 Doctor Unassigned, [place] [facility] HSV 1&2, VZV NAAT 2022-04-03 20:43:00 [facility]/RESPONSE 2022-01-19 06:01:00 Doctor Unassigned, [place] [facility] 12993 Ecg Routine Ecg W/least 12 Lds W/i r 2016-10-23 00:00:00 Delfino Orta Plan of Care Planned Activity Planned Date Details Comments Source Goal Plan of Care Note [code = 05401-6] Goal Plan of Care Note [code = 55333-8] Goal Plan of Care Note [code = 94574-7] Goal Plan of Care Note [code = 59198-6] Goal Plan of Care Note [code = 02062-0] Goal Plan of Care Note [code = 75629-5] Goal Plan of Care Note [code = 77909-0] Goal Plan of Care Note [code = 57741-9] Goal Plan of Care Note [code = 92518-6] Goal Plan of Care Note [code = 07621-5] Goal Plan of Care Note [code = 62537-3] Goal Plan of Care Note [code = 30941-2] Goal Plan of Care Note [code = 06440-1] Goal Plan of Care Note [code = 48364-9] Goal Plan of Care Note [code = 07853-0] Goal Plan of Care Note [code = 91912-1] Goal Plan of Care Note [code = 45631-4] Goal Plan of Care Note [code = 62771-4] Goal Plan of Care Note [code = 46470-1] Goal Plan of Care Note [code = 81690-7] Goal Plan of Care Note [code = 10065-7] Goal Plan of Care Note [code = 72197-0] Goal Plan of Care Note [code = 57858-5] Goal Plan of Care Note [code = 77560-2] Goal Plan of Care Note [code = 10766-7] Goal Plan of Care Note [code = 74747-4] Goal Plan of Care Note [code = 62062-5] Goal Plan of Care Note [code = 00542-2] Goal Plan of Care Note [code = 02353-1] Goal Plan of Care Note [code = 64147-8] Goal Plan of Care Note [code = 38877-2] Goal Plan of Care Note [code = 57978-1] Goal Plan of Care Note [code = 13165-5] Goal Plan of Care Note [code = 15059-0] Goal Plan of Care Note [code = 08940-1] Goal Plan of Care Note [code = 24745-5] Goal Plan of Care Note [code = 19111-7] Goal Plan of Care Note [code = 23626-1] Goal Plan of Care Note [code = 73189-6] Goal Plan of Care Note [code = 62005-5] Goal Plan of Care Note [code = 59614-6] Goal Plan of Care Note [code = 42102-2] Goal Plan of Care Note [code = 38306-9] Goal Plan of Care Note [code = 33407-3] Goal Plan of Care Note [code = 98660-4] Goal Plan of Care Note [code = 02926-6] Goal Plan of Care Note [code = 34519-9] Goal Plan of Care Note [code = 28722-5] Goal Plan of Care Note [code = 41212-4] Goal Plan of Care Note [code = 29654-2] Goal Plan of Care Note [code = 79148-1] Goal Plan of Care Note [code = 15085-2] Goal Plan of Care Note [code = 21012-8] Goal Plan of Care Note [code = 59063-9] Goal Plan of Care Note [code = 10025-5] Goal Plan of Care Note [code = 04896-5] Goal Plan of Care Note [code = 40048-6] Goal Plan of Care Note [code = 08149-6] Goal Plan of Care Note [code = 74804-2] Goal Plan of Care Note [code = 95456-4] Goal Plan of Care Note [code = 36854-0] Goal Plan of Care Note [code = 31072-4] Goal Plan of Care Note [code = 97890-3] Goal Plan of Care Note [code = 16821-5] Goal Plan of Care Note [code = 33303-8] Goal Plan of Care Note [code = 32370-1] Goal Plan of Care Note [code = 23518-3] Goal Plan of Care Note [code = 40655-3] Goal Plan of Care Note [code = 74767-1] Goal Plan of Care Note [code = 91303-6] Goal Plan of Care Note [code = 27444-3] Goal Plan of Care Note [code = 00222-0] Goal Plan of Care Note [code = 81306-1] Goal Plan of Care Note [code = 22415-8] Goal Plan of Care Note [code = 32847-2] Goal Plan of Care Note [code = 42412-6] Goal Plan of Care Note [code = 96149-2] Goal Plan of Care Note [code = 56801-6] Goal Plan of Care Note [code = 13717-7] Goal Plan of Care Note [code = 03355-6] Goal Plan of Care Note [code = 41361-7] Goal Plan of Care Note [code = 16966-8] Goal Plan of Care Note [code = 96707-8] Goal Plan of Care Note [code = 03363-3] Goal Plan of Care Note [code = 98098-0] Goal Plan of Care Note [code = 51940-2] Goal Plan of Care Note [code = 12340-4] Goal Plan of Care Note [code = 15372-6] Goal Plan of Care Note [code = 70961-4] Goal Plan of Care Note [code = 98255-0] Goal Plan of Care Note [code = 18097-7] Goal Plan of Care Note [code = 99195-0] Goal Plan of Care Note [code = 03267-4] Goal Plan of Care Note [code = 78494-0] Goal Plan of Care Note [code = 13222-2] Goal Plan of Care Note [code = 97442-7] Goal Plan of Care Note [code = 78946-8] Goal Plan of Care Note [code = 10775-6] Goal Plan of Care Note [code = 95650-5] Goal Plan of Care Note [code = 84127-9] Goal Plan of Care Note [code = 47439-8] Goal Plan of Care Note [code = 56408-0] Goal Plan of Care Note [code = 73533-3] Goal Plan of Care Note [code = 54475-6] Goal Plan of Care Note [code = 77627-4] Goal Plan of Care Note [code = 05602-6] Goal Plan of Care Note [code = 11597-5] Goal Plan of Care Note [code = 74587-3] Goal Plan of Care Note [code = 43789-9] Goal Plan of Care Note [code = 78964-4] Goal Plan of Care Note [code = 09813-7] Goal Plan of Care Note [code = 54198-7] Goal Plan of Care Note [code = 87576-8] Goal Plan of Care Note [code = 91822-5] Goal Plan of Care Note [code = 86902-8] Goal Plan of Care Note [code = 17307-9] Goal Plan of Care Note [code = 62427-3] Goal Plan of Care Note [code = 45062-8] Goal Plan of Care Note [code = 92508-3] Goal Plan of Care Note [code = 60914-3] Goal Plan of Care Note [code = 48446-8] Goal Plan of Care Note [code = 56778-7] Goal Plan of Care Note [code = 17517-6] Goal Plan of Care Note [code = 20012-5] Goal Plan of Care Note [code = 34046-2] Goal Plan of Care Note [code = 46217-0] Goal Plan of Care Note [code = 88956-7] Goal Plan of Care Note [code = 18061-1] Goal Plan of Care Note [code = 38775-0] Goal Plan of Care Note [code = 34577-3] Goal Plan of Care Note [code = 08778-0] Goal Plan of Care Note [code = 15105-4] Goal Plan of Care Note [code = 08386-7] Goal Plan of Care Note [code = 15041-4] Goal Plan of Care Note [code = 00918-0] Goal Plan of Care Note [code = 24142-3] Goal Plan of Care Note [code = 71139-0] Goal Plan of Care Note [code = 13995-0] Goal Plan of Care Note [code = 61092-7] Goal Plan of Care Note [code = 41515-8] Goal Plan of Care Note [code = 67740-2] Goal Plan of Care Note [code = 79722-3] Goal Plan of Care Note [code = 36282-8] Goal Plan of Care Note [code = 37163-7] Goal Plan of Care Note [code = 79298-7] Goal Plan of Care Note [code = 48773-9] Goal Plan of Care Note [code = 77012-9] Goal Plan of Care Note [code = 07799-3] Goal Plan of Care Note [code = 88169-2] Goal Plan of Care Note [code = 18068-0] Goal Plan of Care Note [code = 43410-7] Goal Plan of Care Note [code = 80702-4] Goal Plan of Care Note [code = 98586-7] Goal Plan of Care Note [code = 58901-8] Goal Plan of Care Note [code = 20583-8] Goal Plan of Care Note [code = 42740-8] Goal Plan of Care Note [code = 81723-4] Goal Plan of Care Note [code = 77814-3] Goal Plan of Care Note [code = 69671-1] Goal Plan of Care Note [code = 79601-6] Goal Plan of Care Note [code = 78738-0] Goal Plan of Care Note [code = 00891-9] Goal Plan of Care Note [code = 42326-7] Goal Plan of Care Note [code = 04703-6] Goal Plan of Care Note [code = 42189-6] Goal Plan of Care Note [code = 30907-9] Goal Plan of Care Note [code = 14845-4] Goal Plan of Care Note [code = 22195-9] Goal Plan of Care Note [code = 96574-2] Goal Plan of Care Note [code = 58038-8] Goal Plan of Care Note [code = 05626-4] Goal Plan of Care Note [code = 16983-9] Goal Plan of Care Note [code = 73553-3] Goal Plan of Care Note [code = 77845-8] Encounters Start Date/Time End Date/Time Encounter Type Admission Type Attending [facility] Care Department Encounter ID Source 2023-12-04 10:08:00 Outpatient [facility] [id number] [facility] 2023-11-11 14:53:00 Outpatient [facility] [id number] [facility] 2023-03-29 10:18:01 Outpatient [facility] [id number] [facility] 2023-03-28 14:01:00 Outpatient [facility] [id number] [facility] 2023-03-26 15:20:01 Outpatient [facility] [id number] [facility] 2024-03-09 08:55:19 2024-03-09 08:55:19 Outpatient SFA [facility] [id number] Delfino Orta 2024-03-09 00:00:00 2024-03-09 00:00:00 Outpatient Visit SFA [id number] Delfino Orta 2024-02-26 11:12:50 2024-02-26 11:12:50 Outpatient SFA [facility] [id number] Delfino Orta 2024-02-26 00:00:00 2024-02-26 00:00:00 Outpatient Visit SFA [id number] Delfino Orta 2024-02-07 11:11:04 2024-02-07 11:11:04 Outpatient SFA [facility] [id number] Delfino Orta 2024-02-07 00:00:00 2024-02-07 00:00:00 Outpatient Visit SFA [id number] Delfino Orta 2024-01-13 09:11:38 2024-01-13 09:11:38 Outpatient SFA SFA [id number] Delfino Orta 2024-01-13 00:00:00 2024-01-13 00:00:00 Outpatient Visit SFA [id number] Delfino Orta 2024-01-01 00:00:00 2024-01-01 00:00:00 Outpatient Visit SFA [id number] Delfino Orta 2023-11-28 00:00:00 2023-11-28 00:00:00 Outpatient Visit SFA [id number] Delfino Orta 2023-11-20 09:01:17 2023-11-20 09:01:17 Outpatient SFA [facility] [id number] Delfino Orta 2023-11-19 10:28:43 2023-11-19 10:28:43 Outpatient SFA S[facility] [id number] Delfino Orta 2023-11-19 00:00:00 2023-11-19 00:00:00 Outpatient Visit SFA [id number] Delfino Orta 2023-11-12 00:00:00 2023-11-12 00:00:00 (TEL) STLMLC STLMLC [id number] [facility] 2023-11-11 00:00:00 2023-11-11 00:00:00 OFFICE VISIT NEW PT LEVEL 4 STLMLC STLMLC [id number] [facility] 2023-11-02 11:02:07 2023-11-02 11:02:07 Outpatient SFA SFA [id number] Delfino Orta 2023-11-02 00:00:00 2023-11-02 00:00:00 Outpatient Visit SFA [id number] Delfino Orta 2023-10-09 14:12:37 2023-10-09 14:12:37 Outpatient SFA SFA [id number] Delfino Orta 2023-10-09 00:00:00 2023-10-09 00:00:00 Outpatient Visit SFA [id number] Delfino Orta 2023-09-23 13:55:35 2023-09-23 13:55:35 Outpatient SFA SFA [id number] Delfino Orta 2023-09-23 00:00:00 2023-09-23 00:00:00 Outpatient Visit SFA [id number] Delfino Orta 2023-09-10 09:05:48 2023-09-10 09:05:48 Outpatient SFA SFA [id number] Delfino Orta 2023-09-10 00:00:00 2023-09-10 00:00:00 Outpatient Visit SFA [id number] Delfino Orta 2023-08-28 13:07:55 2023-08-28 13:07:55 Outpatient SFA SFA [id number] Delfino Orta 2023-08-28 00:00:00 2023-08-28 00:00:00 Outpatient Visit SFA [id number] Delfino Orta 2023-08-22 00:00:00 2023-08-22 00:00:00 Outpatient Visit SFA [id number] Delfino Orta 2023-08-09 14:45:50 2023-08-09 14:45:50 Outpatient SFA SFA [id number] Delfino Orta 2023-08-09 00:00:00 2023-08-09 00:00:00 Outpatient Visit SFA [id number] Delfino Orta 2023-07-24 11:05:48 2023-07-24 11:05:48 Outpatient SFA [facility] [id number] Delfino Orta 2023-07-24 00:00:00 2023-07-24 00:00:00 Outpatient Visit [facility] [id number] Delfino Orta 2023-07-09 00:00:00 2023-07-09 00:00:00 Outpatient Visit [facility] [id number] Delfino Schumacher You 2023-07-02 00:00:00 2023-07-02 14:33:10 [facility]..[facility].114 350.1.13.10 4.2.7.2.686 [id number] [facility] 2023-06-05 13:09:09 2023-06-05 13:09:09 Outpatient SFA [facility] 423 Delfino Schumacher [place] 2023-06-04 13:27:22 2023-06-04 13:27:22 Outpatient [facility] 422 Delfino Schumacher [place] 2023-06-04 00:00:00 2023-06-04 00:00:00 Outpatient Visit [facility] [id number] Delfino Schumacher [place] 2023-05-21 00:00:00 2023-05-21 00:00:00 Transition of Care Lj Paredes 1..840.114 350.1.13.10 4.2.7.2.686 [id number] [facility] 2023-05-16 12:13:00 2023-05-20 16:40:00 Inpatient X [facility] [id number] [facility] 2023-05-16 12:13:00 2023-05-20 16:40:00 Hospital Encounter Anyi Hearn Kvng Roberson [facility] 1.2.840.114 350.1.13.10 4.2.7.2.686 [id number] [facility] 2023-05-09 13:59:33 2023-05-09 13:59:33 Outpatient [facility] [place] [id number] Delfino Orta 2023-04-18 10:12:11 2023-04-18 10:12:11 Outpatient [facility] [place] [id number] Delfino Schumacher [place] 2023-04-02 09:41:47 2023-04-02 09:41:47 Outpatient [facility] [place] [id number] Delfino Schumacher You 2023-03-20 10:44:00 2023-03-20 12:35:00 Emergency X ANYI HEARN [facility] ERT [id number] [facility] 2023-03-20 10:44:00 2023-03-20 12:35:00 Emergency Anyi Hearn [facility] 1.2.840.114 350.1.13.10 4.2.7.2.686 [id number] [facility] 2023-03-18 10:58:22 2023-03-18 10:58:22 Outpatient SFA [facility] 204 Delfino Schumacher [place] 2023-03-14 14:37:27 2023-03-14 14:37:27 Outpatient [facility] [place] [id number] Delfino Schumacher [place] 2023-03-07 13:58:45 2023-03-07 13:58:45 Outpatient SFA [facility] [id number] Delfino Schumacher [place] 2022-12-14 14:53:29 2022-12-14 14:53:29 Outpatient SFA S[facility] [id number] Delfino Orta 2022-10-04 11:25:10 2022-10-04 11:25:10 Outpatient SFA [facility] [id number] Delfino Orta 2022-09-17 11:44:00 2022-09-17 14:31:00 Emergency X GASTON HOBBS [facility] ERT [id number] [facility] 2022-09-17 11:44:00 2022-09-17 14:31:00 Emergency Gaston Hobbs J [facility] 1..840.114 350.1.13.10 4.2.7.2.686 [id number] [facility] 2022-09-12 09:01:58 2022-09-12 09:01:58 Outpatient [facility] [id number] Delfino Orta 2022-09-11 00:00:00 2022-09-11 00:00:00 [facility] 1..840.114 350.1.13.10 4.2.7.2.686 [id number] [facility] 2022-08-07 09:45:03 2022-08-07 09:45:03 Outpatient [facility] [id number] Delfino Orta 2022-08-01 13:52:32 2022-08-01 13:52:32 Outpatient [facility] [id number] Delfino Orta 2022-07-18 09:30:00 2022-07-18 09:30:00 Outpatient R LEEDI CLARITZA [facility] [id number] [facility] 2022-07-04 11:11:38 2022-07-04 11:11:38 Outpatient [facility] [id number] Delfino Orta 2022-06-05 00:00:00 2022-06-05 00:00:00 Orders Only Doctor Unassigned, [place] [facility] 1..840.114 350.1.13.10 4.2.7.2.686 [id number] [facility] 2022-05-29 09:31:33 2022-05-29 09:31:33 Outpatient [facility] [id number] Delfino Orta 2022-05-15 13:00:00 2022-05-15 13:00:00 Outpatient R [facility] [id number] [facility] 2022-05-15 09:34:43 2022-05-15 09:34:43 Outpatient [facility] [id number] Delfino Orta 2022-04-19 15:25:24 2022-04-19 15:25:24 Outpatient [facility] [id number] Delfino Orta 2022-04-04 00:00:00 2022-04-04 00:00:00 Case Management Del Jeanine Shoemaker [facility] 1..840.114 350.1.13.10 4.2.7.2.686 [id number] [facility] 2022-04-03 13:00:00 2022-04-03 14:00:00 Office Visit Guerline Garcia Jeffrey [facility] 1..840.114 350.1.13.10 4.2.7.2.686 [id number] [facility] 2022-04-03 13:00:00 2022-04-03 13:00:00 Outpatient R GUERO MARTINEZ [facility] [id number] [facility] 2022-04-02 15:14:37 2022-04-02 15:14:37 Outpatient [facility] [id number] Delfino Orta 2022-03-28 13:26:46 2022-03-28 13:26:46 Outpatient [facility] [id number] Delfino Orta 2022-02-28 11:43:30 2022-02-28 11:43:30 Outpatient [facility] [id number] Delfino Orta 2022-02-28 00:00:00 2022-02-28 00:00:00 Outpatient Visit [id number] 2022-02-27 15:30:00 2022-02-27 15:30:00 Outpatient R [facility] [id number] [facility] 2022-02-23 10:25:15 2022-02-23 10:25:15 Outpatient [facility] [id number] Delfino Orta 2022-02-22 00:00:00 2022-02-22 00:00:00 Case Management Emily Almagueryl Robert [facility] 1.114 350.1.13.10 4.2.7.2.686 [id number] [facility] 2022-01-29 00:00:00 2022-01-29 00:00:00 Case Management Osman Ware [facility] 1..114 350.1.13.10 4.2.7.2.686 [id number] [facility] 2022-01-19 13:56:18 2022-01-19 13:56:18 Outpatient [facility] [id number] Delfino Orta 2022-01-19 00:00:00 2022-01-19 00:00:00 Orders Only Doctor Unassigned, [place] [facility] 1.114 350.1.13.10 4.2.7.2.686 [id number] [id number] [facility] 2022-01-19 00:00:00 2022-01-19 00:00:00 Outpatient Visit [id number] 2021-11-15 00:00:00 2021-11-15 00:00:00 Case Management Kasandra Flores [facility] 1.114 350.1.13.10 4.2.7.2.686 [id number] [facility] 2021-11-06 00:00:00 2021-11-06 00:00:00 Outpatient Visit [id number] 2021-10-10 09:30:00 2021-10-10 09:30:00 Outpatient R [facility] [id number] [facility] 2021-09-07 00:00:00 2021-09-07 00:00:00 Outpatient FERAVISON_LESLIE BHARDWAJ [facility] [id number] Radha bentley [facility] 2021-08-25 03:29:00 2021-08-25 03:29:00 Outpatient Adams_R DMG [facility] [id number] 0715 [facility] 2021-08-07 00:00:00 2021-08-07 00:00:00 Outpatient Visit [id number] 2021-07-18 15:15:00 2021-07-18 16:23:57 Outpatient R APOLINAR WEBER [facility] [id number] [facility] 2021-07-18 15:15:00 2021-07-18 16:23:57 Office Visit Pgy2 Apolinar Weber L [facility] ..114 350.1.13.10 4.2.7.2.686 [id number] [facility] 2021-07-18 15:15:00 2021-07-18 16:23:57 Outpatient R APOLINAR WEBER [facility] [id number] [facility] 2021-06-27 00:00:00 2021-06-27 00:00:00 Telephone Enedina Mccarty [facility] ..114 350.1.13.10 4.2.7.2.686 [id number] [facility] 2021-06-15 00:00:00 2021-06-15 00:00:00 Transition of Care Lj Paredes CHARLES CALLEJAS 1.2.840.114 350.1.13.10 4.2.7.2.686 [id number] [facility] 2021-06-09 10:48:00 2021-06-14 17:22:00 Inpatient X [facility] [id number] [facility] 2021-06-09 10:48:00 2021-06-14 17:22:00 Hospital Encounter Toby Donohue A [place], Alfred Scott [facility] 1.840.114 350.1.13.10 4.2.7.2.686 [id number] [facility] 2021-06-12 00:00:00 2021-06-12 00:00:00 Case Management Evette Dunn [facility] 1.0.114 350.1.13.10 4.2.7.2.686 [id number] [facility] 2021-06-08 10:46:00 2021-06-08 16:28:00 Emergency X KENNEDI BLUE [facility] E[facility] [id number] [facility] 2021-06-08 10:46:00 2021-06-08 16:28:00 Emergency Kennedi Blue [facility] 1.2840.114 350.1.13.10 4.2.7.2.686 [id number] [id number] [facility] 2021-05-24 00:00:00 2021-05-24 00:00:00 Letter (Out) Mikael Quiroz [facility] 1.2840.114 350.1.13.10 4.2.7.2.686 [id number] [facility] 2021-05-23 00:00:00 2021-05-23 00:00:00 Orders Only Doctor Unassigned, [place] [facility] 1.2.840.114 350.1.13.10 4.2.7.2.686 [id number] [facility] 2021-05-16 09:00:00 2021-05-16 09:00:00 Outpatient Adams_R DMG [facility] [id number] [facility] 2021-05-01 11:30:00 2021-05-01 12:47:00 Emergency X AZUL LJ [facility] E[facility] [id number] [facility] 2021-05-01 11:30:00 2021-05-01 12:47:00 Emergency Lj Liang B [facility] 1.2.840.114 350.1.13.10 4.2.7.2.686 [id number] [facility] 2020-10-04 11:44:00 2020-10-04 12:54:00 Emergency X MARGARET NUNEZ [facility] ERT [id number] [facility] 2020-10-04 11:44:00 2020-10-04 12:54:00 Emergency Margaret Nunez [facility] 1.2.840.114 350.1.13.10 4.2.7.2.686 [id number] [facility] 2020-09-29 00:00:00 2020-09-29 00:00:00 Telephone Bonny Morris [facility] 1.2.840.114 350.1.13.10 4.2.7.2.686 [id number] [facility] 2020-09-22 14:30:00 2020-09-22 14:30:00 Outpatient R BONNY MORRIS [facility] [id number] [facility] 2020-08-25 11:32:00 2020-08-25 11:32:00 Outpatient Adams_R DMG [facility] [id number] [facility] 2020-08-25 09:28:00 2020-08-25 10:21:00 Emergency Margaret Nunez [facility] 1.2.840.114 350.1.13.10 4.2.7.2.686 [id number] [facility] 2020-08-25 09:28:00 2020-08-25 10:21:00 Emergency X MARGARET NUNEZ [facility] ERT [id number] [facility] 2020-08-24 14:43:00 2020-08-24 15:59:00 Emergency Terri Elliott Suzette [facility] 1..840.114 350.1.13.10 4.2.7.2.686 [id number] [facility] 2020-08-24 14:43:00 2020-08-24 15:59:00 Emergency X [facility] ERT [id number] [facility] 2020-08-24 00:00:00 2020-08-24 00:00:00 Telephone Bonny Morris [facility] 1..840.114 350.1.13.10 4.2.7.2.686 [id number] [facility] 2020-08-12 15:00:00 2020-08-12 15:00:00 Outpatient R BONNY MORRIS [facility] [id number] [facility] 2020-08-12 00:00:00 2020-08-12 00:00:00 Telephone Bonny Morris [facility] 1..840.114 350.1.13.10 4.2.7.2.686 [id number] [facility] 2020-08-04 01:58:00 2020-08-04 01:58:00 Outpatient Adams_R DMG [facility]G [id number] [facility] 2020-07-28 00:00:00 2020-07-28 00:00:00 Telephone Bonny Morris [facility] 1.2.840.114 350.1.13.10 4.2.7.2.686 [id number] [facility] 2020-07-28 00:00:00 2020-07-28 00:00:00 Orders Only Doctor Unassigned, [place] [facility] 1.2.840.114 350.1.13.10 4.2.7.2.686 [id number] [facility] 2020-07-27 00:00:00 2020-07-27 00:00:00 Telephone Bonny Morris [facility] 1.2.840.114 350.1.13.10 4.2.7.2.686 [id number] [facility] 2020-07-27 00:00:00 2020-07-27 00:00:00 Telephone Bonny Morris [facility] 1.2.840.114 350.1.13.10 4.2.7.2.686 [id number] [facility] 2020-07-26 14:25:36 2020-07-26 15:12:16 Office Visit Bonny Morris [facility] 1.2.840.114 350.1.13.10 4.2.7.2.686 [id number] [facility] 2020-07-26 14:30:00 2020-07-26 14:30:00 Outpatient R BONNY MORRIS [facility] [id number] [facility] 2020-07-20 10:25:00 2020-07-20 15:52:00 Emergency Danw Blanco [facility] 1.2.840.114 350.1.13.10 4.2.7.2.686 [id number] [facility] 2020-07-20 10:16:00 2020-07-20 10:16:00 Emergency X [facility] ERT [id number] [facility] 2020-07-18 01:42:00 2020-07-18 01:42:00 Outpatient Tumelson_A DMG [facility] [id number] [facility] 2020-07-01 13:47:00 2020-07-01 16:34:00 Emergency Josse Lockhart [facility] 1.2.840.114 350.1.13.10 4.2.7.2.686 [id number] [facility] 2020-07-01 13:47:00 2020-07-01 16:34:00 Emergency X JOSSE LOCKHART [facility] ERT [id number] [facility] 2020-07-01 13:47:00 2020-07-01 16:34:00 Emergency Josse Lockhart [facility] 1.2.840.114 350.1.13.10 4.2.7.2.686 [id number] 084 [id number] Results Test Description Test Time Test Comments Results Result Co mments Source LIPID [id number] 06:36:53* Test Item Value Reference Range Interpretation [...] SPECIMENS. FOR MOREINFORMATION, SEE CLIENT ANNOUNCEMENT AT [email or web address] RISK RATIO LDL/HDL (test code = 2238) 0.66 RATIO <3.22 HEMOGLOBIN [id number] 04:59:33* Test Item Value Reference Range Interpretation Comme nts HEMOGLOBIN A1c (test code = 41489) 5.9 % 4.2-5.6 H [employer] GUIDELINES FOR HGB A1C: [...] TESTING PERFORMED AT [facility] [address] [place] [address] BLEACH MAKER: ABBI SHORT M.D. CLIA NUMBER [id number] [facility] [place]. [id number] CBC W/AUTO DIFF WITH [id number] 03:30:09* Test Item Value Reference Range Interpretation [...] = 1065) 0.0 /100 WBC'S See_Comment [Automated [employer] ge] The system which generated this result [...] 0.00-0.10 ABS NUCLEATED RBCS (test code = 04825) 0.00 K/UL 0.00-0.11 COMPREHENSIVE METABOLIC [id number] 00:00:00* Test Item Value Reference Range Interpretation Comme nts GLUCOSE (test code = 2217) 87 MG/DL BUN (test code = 2208) 19 MG/DL CREATININE (test code = 2214) 1.49 MG/DL eGFR (2020 CKD-EPI) (test co de = 64261) 40 ML/MIN/1.73 CALC BUN/CREAT (test code = [...] = 2219) 25 U/L Delfino OrtaCBC W/AUTO [id number] 00:00:00* Test Item Value Reference Range Interpretation [...] ABS NUCLEATED RBCS (test cod e = 61161) 0.00 K/UL Delfino OrtaLIPID [id number] 00:00:00* Test Item Value Reference Range Interpretation Comme nts CHOLESTEROL (test code = 2210) 196 MG/DL TRIGLYCERIDES (test code = 2232) 66 MG/DL HDL CHOLESTEROL (test code = 2220) 109 MG/DL CALC LDL CHOL (test code = 2237) 72 MG/DL RISK RATIO LDL/HDL (test cod e = 2238) 0.66 RATIO Delfino OrtaHEMOGLOBIN [id number] 00:00:00* Test Item Value Reference Range Interpretation Comme nts HEMOGLOBIN A1c (test code = 39808) 5.9 % Delfino OrtaCOMPREHENSIVE METABOLIC [id number] 00:00:00* Test Item Value Reference Range Interpretation Comme nts GLUCOSE (test code = 2217) 87 MG/DL BUN (test code = 2208) 19 MG/DL CREATININE (test code = 2214) 1.49 MG/DL eGFR (2020 CKD-EPI) (test co de = 29887) 40 ML/MIN/1.73 CALC BUN/CREAT (test code = [...] = 2219) 25 U/L Delfino OrtaCBC W/AUTO [id number] 00:00:00* Test Item Value Reference Range Interpretation [...] ABS NUCLEATED RBCS (test cod e = 84459) 0.00 K/UL Delfino OrtaLIPID [id number] 00:00:00* Test Item Value Reference Range Interpretation Comme nts CHOLESTEROL (test code = 2210) 196 MG/DL TRIGLYCERIDES (test code = 2232) 66 MG/DL HDL CHOLESTEROL (test code = 2220) 109 MG/DL CALC LDL CHOL (test code = 2237) 72 MG/DL RISK RATIO LDL/HDL (test cod e = 2238) 0.66 RATIO Delfino OrtaHEMOGLOBIN [id number] 00:00:00* Test Item Value Reference Range Interpretation Comme nts HEMOGLOBIN A1c (test code = 34615) 5.9 % Delfino OrtaCOMPREHENSIVE METABOLIC [id number] 00:00:00* Test Item Value Reference Range Interpretation Comme nts GLUCOSE (test code = 2217) 87 MG/DL BUN (test code = 2208) 19 MG/DL CREATININE (test code = 2214) 1.49 MG/DL eGFR (2020 CKD-EPI) (test co de = 83450) 40 ML/MIN/1.73 CALC BUN/CREAT (test code = [...] = 2219) 25 U/L Delfino OrtaCBC W/AUTO [id number] 00:00:00* Test Item Value Reference Range Interpretation [...] ABS NUCLEATED RBCS (test cod e = 24254) 0.00 K/UL Delfino OrtaLIPID [id number] 00:00:00* Test Item Value Reference Range Interpretation Comme nts CHOLESTEROL (test code = 2210) 196 MG/DL TRIGLYCERIDES (test code = 2232) 66 MG/DL HDL CHOLESTEROL (test code = 2220) 109 MG/DL CALC LDL CHOL (test code = 2237) 72 MG/DL RISK RATIO LDL/HDL (test cod e = 2238) 0.66 RATIO Delfino OrtaHEMOGLOBIN [id number] 00:00:00* Test Item Value Reference Range Interpretation Comme nts HEMOGLOBIN A1c (test code = 43500) 5.9 % Delfino OrtaCOMPREHENSIVE METABOLIC [id number] 00:00:00* Test Item Value Reference Range Interpretation Comme nts GLUCOSE (test code = 2217) 87 MG/DL BUN (test code = 2208) 19 MG/DL CREATININE (test code = 2214) 1.49 MG/DL eGFR (2020 CKD-EPI) (test co de = 86666) 40 ML/MIN/1.73 CALC BUN/CREAT (test code = [...] = 2219) 25 U/L Delfino OrtaCBC W/AUTO [id number] 00:00:00* Test Item Value Reference Range Interpretation [...] ABS NUCLEATED RBCS (test cod e = 80072) 0.00 K/UL Delfino OrtaLIPID [id number] 00:00:00* Test Item Value Reference Range Interpretation Comme nts CHOLESTEROL (test code = 2210) 196 MG/DL TRIGLYCERIDES (test code = 2232) 66 MG/DL HDL CHOLESTEROL (test code = 2220) 109 MG/DL CALC LDL CHOL (test code = 2237) 72 MG/DL RISK RATIO LDL/HDL (test cod e = 2238) 0.66 RATIO Delfino OrtaHEMOGLOBIN [id number] 00:00:00* Test Item Value Reference Range Interpretation Comme nts HEMOGLOBIN A1c (test code = 44060) 5.9 % Delfino OrtaHIV-1 QUANT, [id number] 11:19:24* Test Item Value Reference Range Interpretation Comme nts HIV-1 VIRAL COPY (test code = 4141) TEST NOT PERFORMED COPIES/ML Unable to perform testing, specimen not received.Charges adjusted as applicable. HIV-1 VIRAL LOG (test code = 03767) TEST NOT PERFORMED LOG COPIES/ML Range of quantitatio n is 20-10,000,000 Copies/mL, (1.301-7.000log Copies/mL). Samples with HIV RNA detected below the limit ofquantitation are reported as <20 Copies/mL. Assay methodology ispolymerase chain reaction (PCR) using the [employer] 6800[employer]00system. The expected result is NOT DETECTED. For diagnostic use,please refer to laboratory test compendium. HIV-1 QUANT, [id number] 00:00:00* Test Item Value Reference Range Interpretation Comme nts HIV-1 VIRAL COPY (test code = 4141) TEST NOT PERFORMED COPIES/ML HIV-1 VIRAL LOG (test code = 08785) TEST NOT PERFORMED LOGCOPIES/ML Delfino F AustinHIV-1 QUANT, [id number] 00:00:00* Test Item Value Reference Range Interpretation Comme nts HIV-1 VIRAL COPY (test code = 4141) TEST NOT PERFORMED COPIES/ML HIV-1 VIRAL LOG (test code = 23593) TEST NOT PERFORMED LOGCOPIES/ML Delfino F AustinHIV-1 QUANT, [id number] 00:00:00* Test Item Value Reference Range Interpretation Comme nts HIV-1 VIRAL COPY (test code = 4141) TEST NOT PERFORMED COPIES/ML HIV-1 VIRAL LOG (test code = 90398) TEST NOT PERFORMED LOGCOPIES/ML Delfino F AustinHIV-1 QUANT, [id number] 00:00:00* Test Item Value Reference Range Interpretation Comme nts HIV-1 VIRAL COPY (test code = 4141) TEST NOT PERFORMED COPIES/ML HIV-1 VIRAL LOG (test code = 71863) TEST NOT PERFORMED LOGCOPIES/ML Delfino F AustinHIV-1 QUANT, [id number] 00:00:00* Test Item Value Reference Range Interpretation Comme nts HIV-1 VIRAL COPY (test code = 4141) TEST NOT PERFORMED COPIES/ML HIV-1 VIRAL LOG (test code = 92832) TEST NOT PERFORMED LOGCOPIES/ML Delfino F AustinHIV-1 QUANT, [id number] 00:00:00* Test Item Value Reference Range Interpretation Comme nts HIV-1 VIRAL COPY (test code = 4141) TEST NOT PERFORMED COPIES/ML HIV-1 VIRAL LOG (test code = 62010) TEST NOT PERFORMED LOGCOPIES/ML Delfino F AustinCD4/CD8 LYMPHOCYTE [id number] 15:06:04* Test Item Value Reference Range Interpretation Comme nts ABSOLUTE LYMPHOCYTES (test code = 90854) 1180 PER UL 9730-0857 PERCENT CD4 (test code = 28529) 20.9 % 34.0-65.0 L ABSOLUTE CD4 (test code = 62620) 247 PER UL 520-1470 L PERCENT CD8 (test code = 76465) 56.8 % 13.0-38.0 H ABSOLUTE CD8 (test code = 72924) 670 PER UL 205-920 CD4/CD8 RATIO (test code = 26793) 0.37 0.92-3.41 L UNLESS OTHERWISE INDICATED, ALL TESTING PERFORMED AT [facility] [address] [place] [address] BLEACH MAKER: ABBI SHORT M.D. CLIA NUMBER [id number] [facility] [place] [place]. [id number] CD4/CD8 LYMPHOCYTE [id number] 00:00:00* Test Item Value Reference Range Interpretation Comme nts ABSOLUTE LYMPHOCYTES (test c ode = 52637) 1180 PERUL PERCENT CD4 (test code = 86274) 20.9 % ABSOLUTE CD4 (test code = 25098) 247 PERUL PERCENT CD8 (test code = 71354) 56.8 % ABSOLUTE CD8 (test code = 68805) 670 PERUL CD4/CD8 RATIO (test code = 93769) 0.37 Delfino Endy AustinCD4/CD8 LYMPHOCYTE [id number] 00:00:00* Test Item Value Reference Range Interpretation Comme nts ABSOLUTE LYMPHOCYTES (test c ode = 53963) 1180 PERUL PERCENT CD4 (test code = 14220) 20.9 % ABSOLUTE CD4 (test code = 19486) 247 PERUL PERCENT CD8 (test code = 63689) 56.8 % ABSOLUTE CD8 (test code = 38386) 670 PERUL CD4/CD8 RATIO (test code = 80527) 0.37 Delfino F AustinCD4/CD8 LYMPHOCYTE [id number] 00:00:00* Test Item Value Reference Range Interpretation Comme nts ABSOLUTE LYMPHOCYTES (test c ode = 56786) 1180 PERUL PERCENT CD4 (test code = 20030) 20.9 % ABSOLUTE CD4 (test code = 86409) 247 PERUL PERCENT CD8 (test code = 76289) 56.8 % ABSOLUTE CD8 (test code = 69270) 670 PERUL CD4/CD8 RATIO (test code = 20419) 0.37 Delfino F AustinCD4/CD8 LYMPHOCYTE [id number] 00:00:00* Test Item Value Reference Range Interpretation Comme nts ABSOLUTE LYMPHOCYTES (test c ode = 37528) 1180 PERUL PERCENT CD4 (test code = 14479) 20.9 % ABSOLUTE CD4 (test code = 10289) 247 PERUL PERCENT CD8 (test code = 18096) 56.8 % ABSOLUTE CD8 (test code = 24044) 670 PERUL CD4/CD8 RATIO (test code = 85327) 0.37 Delfino Schumacher AustinCD4/CD8 LYMPHOCYTE [id number] 00:00:00* Test Item Value Reference Range Interpretation Comme nts ABSOLUTE LYMPHOCYTES (test c ode = 07323) 1180 PERUL PERCENT CD4 (test code = 54800) 20.9 % ABSOLUTE CD4 (test code = 68106) 247 PERUL PERCENT CD8 (test code = 07109) 56.8 % ABSOLUTE CD8 (test code = 10552) 670 PERUL CD4/CD8 RATIO (test code = 38009) 0.37 Delfino Schumacher AustinCD4/CD8 LYMPHOCYTE [id number] 00:00:00* Test Item Value Reference Range Interpretation Comme nts ABSOLUTE LYMPHOCYTES (test c ode = 17605) 1180 PERUL PERCENT CD4 (test code = 20632) 20.9 % ABSOLUTE CD4 (test code = 38586) 247 PERUL PERCENT CD8 (test code = 14839) 56.8 % ABSOLUTE CD8 (test code = 56784) 670 PERUL CD4/CD8 RATIO (test code = 96860) 0.37 Delfino Schumacher AustinCD4/CD8 LYMPHOCYTE [id number] 00:00:00* Test Item Value Reference Range Interpretation Comme nts ABSOLUTE LYMPHOCYTES (test c ode = 30308) 877 PERUL PERCENT CD4 (test code = 55781) 22.4 % ABSOLUTE CD4 (test code = 86207) 196 PERUL PERCENT CD8 (test code = 80920) 58.8 % ABSOLUTE CD8 (test code = 81787) 515 PERUL CD4/CD8 RATIO (test code = 63847) 0.38 Delfino OrtaHIV-1 QUANT, [id number] 00:00:00* Test Item Value Reference Range Interpretation Comme nts HIV-1 VIRAL COPY (test code = 4141) 619 COPIES/ML HIV-1 VIRAL LOG (test code = 16808) 2.792 LOGCOPIES/ML Delfino OrtaHEMOGLOBIN A1c [ADDED]2023-09-11 00:00:00* Test Item Value Reference Range Interpretation Comme nts HEMOGLOBIN A1c (test code = 85206) 5.6 % Delfino OrtaCBC W/AUTO [id number] 00:00:00* Test Item Value Reference Range Interpretation [...] ABS NUCLEATED RBCS (test cod e = 90614) 0.00 K/UL Delfino OrtaCOMPREHENSIVE METABOLIC [id number] 00:00:00* Test Item Value Reference Range Interpretation Comme nts GLUCOSE (test code = 2217) 83 MG/DL BUN (test code = 2208) 24 MG/DL CREATININE (test code = 2214) 1.32 MG/DL eGFR (2020 CKD-EPI) (test co de = 06256) 46 ML/MIN/1.73 CALC BUN/CREAT (test code = [...] 2219) 13 U/L Delfino Schumacher YouCD4/CD8 LYMPHOCYTE [id number] 00:00:00* Test Item Value Reference Range Interpretation Comme [facility] ABSOLUTE LYMPHOCYTES (test c ode = 71780) 877 PERUL PERCENT CD4 (test code = 65009) 22.4 % ABSOLUTE CD4 (test code = 58681) 196 PERUL PERCENT CD8 (test code = 45241) 58.8 % ABSOLUTE CD8 (test code = 07226) 515 PERUL CD4/CD8 RATIO (test code = 45415) 0.38 Delfino Schumacher YouHIV-1 QUANT, [id number] 00:00:00* Test Item Value Reference Range Interpretation Comme [facility] HIV-1 VIRAL COPY (test code = 4141) 619 COPIES/ML HIV-1 VIRAL LOG (test code = 97547) 2.792 LOGCOPIES/ML Delfino Schumacher YouHEMOGLOBIN A1c [ADDED]2023-09-11 00:00:00* Test Item Value Reference Range Interpretation Comme [facility] HEMOGLOBIN A1c (test code = 25184) 5.6 % Delfino Schumacher YouCBC W/AUTO [id number] 00:00:00* Test Item Value Reference Range Interpretation [...] ABS NUCLEATED RBCS (test cod e = 90343) 0.00 K/UL Delfino OrtaCOMPREHENSIVE METABOLIC [id number] 00:00:00* Test Item Value Reference Range Interpretation Comme nts GLUCOSE (test code = 2217) 83 MG/DL BUN (test code = 2208) 24 MG/DL CREATININE (test code = 2214) 1.32 MG/DL eGFR (2020 CKD-EPI) (test co de = 27291) 46 ML/MIN/1.73 CALC BUN/CREAT (test code = [...] = 2219) 13 U/L Delfino OrtaCD4/CD8 LYMPHOCYTE [id number] 00:00:00* Test Item Value Reference Range Interpretation Comme carlito ABSOLUTE LYMPHOCYTES (test c ode = 62610) 877 PERUL PERCENT CD4 (test code = 83134) 22.4 % ABSOLUTE CD4 (test code = 30766) 196 PERUL PERCENT CD8 (test code = 81850) 58.8 % ABSOLUTE CD8 (test code = 36355) 515 PERUL CD4/CD8 RATIO (test code = 90722) 0.38 Delfino OrtaHIV-1 QUANT, [id number] 00:00:00* Test Item Value Reference Range Interpretation Comme carlito HIV-1 VIRAL COPY (test code = 4141) 619 COPIES/ML HIV-1 VIRAL LOG (test code = 00806) 2.792 LOGCOPIES/ML Delfino OrtaHEMOGLOBIN A1c [ADDED]2023-09-11 00:00:00* Test Item Value Reference Range Interpretation Comme carlito HEMOGLOBIN A1c (test code = 20583) 5.6 % Delfino OrtaCBC W/AUTO [id number] 00:00:00* Test Item Value Reference Range Interpretation [...] ABS NUCLEATED RBCS (test cod e = 18504) 0.00 K/UL Delfino OrtaCOMPREHENSIVE METABOLIC [id number] 00:00:00* Test Item Value Reference Range Interpretation Comme nts GLUCOSE (test code = 2217) 83 MG/DL BUN (test code = 2208) 24 MG/DL CREATININE (test code = 2214) 1.32 MG/DL eGFR (2020 CKD-EPI) (test co de = 86222) 46 ML/MIN/1.73 CALC BUN/CREAT (test code = [...] = 2219) 13 U/L Delfino OrtaCD4/CD8 LYMPHOCYTE [id number] 00:00:00* Test Item Value Reference Range Interpretation Comme nts ABSOLUTE LYMPHOCYTES (test c ode = 25894) 877 PERUL PERCENT CD4 (test code = 43766) 22.4 % ABSOLUTE CD4 (test code = 26264) 196 PERUL PERCENT CD8 (test code = 27750) 58.8 % ABSOLUTE CD8 (test code = 50355) 515 PERUL CD4/CD8 RATIO (test code = 82902) 0.38 Delfino OrtaHIV-1 QUANT, [id number] 00:00:00* Test Item Value Reference Range Interpretation Comme [facility] HIV-1 VIRAL COPY (test code = 4141) 619 COPIES/ML HIV-1 VIRAL LOG (test code = 54519) 2.792 LOGCOPIES/ML Delfino OrtaHEMOGLOBIN A1c [ADDED]2023-09-11 00:00:00* Test Item Value Reference Range Interpretation Comme nts HEMOGLOBIN A1c (test code = 77412) 5.6 % Delfino OrtaCBC W/AUTO [id number] 00:00:00* Test Item Value Reference Range Interpretation [...] ABS NUCLEATED RBCS (test cod e = 16912) 0.00 K/UL Delfino OrtaCOMPREHENSIVE METABOLIC [id number] 00:00:00* Test Item Value Reference Range Interpretation Comme nts GLUCOSE (test code = 2217) 83 MG/DL BUN (test code = 2208) 24 MG/DL CREATININE (test code = 2214) 1.32 MG/DL eGFR (2020 CKD-EPI) (test co de = 59907) 46 ML/MIN/1.73 CALC BUN/CREAT (test code = [...] = 2219) 13 U/L Delfino OrtaCD4/CD8 LYMPHOCYTE [id number] 00:00:00* Test Item Value Reference Range Interpretation Comme [facility] ABSOLUTE LYMPHOCYTES (test c ode = 35758) 877 PERUL PERCENT CD4 (test code = 60403) 22.4 % ABSOLUTE CD4 (test code = 05561) 196 PERUL PERCENT CD8 (test code = 72331) 58.8 % ABSOLUTE CD8 (test code = 20006) 515 PERUL CD4/CD8 RATIO (test code = 41009) 0.38 Delfino OrtaHIV-1 QUANT, [id number] 00:00:00* Test Item Value Reference Range Interpretation Comme nts HIV-1 VIRAL COPY (test code = 4141) 619 COPIES/ML HIV-1 VIRAL LOG (test code = 63570) 2.792 LOGCOPIES/ML Delfino OrtaHEMOGLOBIN A1c [ADDED]2023-09-11 00:00:00* Test Item Value Reference Range Interpretation Comme nts HEMOGLOBIN A1c (test code = 19680) 5.6 % Delfino OrtaCBC W/AUTO [id number] 00:00:00* Test Item Value Reference Range Interpretation [...] ABS NUCLEATED RBCS (test cod e = 36689) 0.00 K/UL Delfino OrtaCOMPREHENSIVE METABOLIC [id number] 00:00:00* Test Item Value Reference Range Interpretation Comme nts GLUCOSE (test code = 2217) 83 MG/DL BUN (test code = 2208) 24 MG/DL CREATININE (test code = 2214) 1.32 MG/DL eGFR (2020 CKD-EPI) (test co de = 37700) 46 ML/MIN/1.73 CALC BUN/CREAT (test code = [...] 0.3 MG/DL ALKALINE PHOSPHATASE (test code = 220) 83 U/L AST (test code = 2218) 24 U/L ALT (test code = 2219) 13 U/L Delfino Schumacher YouCD4/CD8 LYMPHOCYTE [id number] 00:00:00* Test Item Value Reference Range Interpretation Comme [facility] ABSOLUTE LYMPHOCYTES (test c ode = 35973) 877 PERUL PERCENT CD4 (test code = 51340) 22.4 % ABSOLUTE CD4 (test code = 45358) 196 PERUL PERCENT CD8 (test code = 05701) 58.8 % ABSOLUTE CD8 (test code = 10631) 515 PERUL CD4/CD8 RATIO (test code = 07483) 0.38 Delfino Schumacher YouHIV-1 QUANT, [id number] 00:00:00* Test Item Value Reference Range Interpretation Comme [facility] HIV-1 VIRAL COPY (test code = 4141) 619 COPIES/ML HIV-1 VIRAL LOG (test code = 77091) 2.792 LOGCOPIES/ML Delfino Schumacher YouHEMOGLOBIN A1c [ADDED]2023-09-11 00:00:00* Test Item Value Reference Range Interpretation Comme nts HEMOGLOBIN A1c (test code = 19560) 5.6 % Delfino F YouCBC W/AUTO [id number] 00:00:00* Test Item Value Reference Range Interpretation [...] ABS NUCLEATED RBCS (test cod e = 22398) 0.00 K/UL Delfino OrtaCOMPREHENSIVE METABOLIC [id number] 00:00:00* Test Item Value Reference Range Interpretation Comme nts GLUCOSE (test code = 2217) 83 MG/DL BUN (test code = 2208) 24 MG/DL CREATININE (test code = 2214) 1.32 MG/DL eGFR (2020 CKD-EPI) (test co de = 52455) 46 ML/MIN/1.73 CALC BUN/CREAT (test code = [...] = 2219) 13 U/L Delfino OrtaCD4/CD8 LYMPHOCYTE [id number] 00:00:00* Test Item Value Reference Range Interpretation Comme nts ABSOLUTE LYMPHOCYTES (test c ode = 17060) 877 PERUL PERCENT CD4 (test code = 16892) 22.4 % ABSOLUTE CD4 (test code = 74738) 196 PERUL PERCENT CD8 (test code = 78594) 58.8 % ABSOLUTE CD8 (test code = 32980) 515 PERUL CD4/CD8 RATIO (test code = 28584) 0.38 Delfino OrtaHIV-1 QUANT, [id number] 00:00:00* Test Item Value Reference Range Interpretation Comme [facility] HIV-1 VIRAL COPY (test code = 4141) 619 COPIES/ML HIV-1 VIRAL LOG (test code = 62686) 2.792 LOGCOPIES/ML Delfino OrtaHEMOGLOBIN A1c [ADDED]2023-09-11 00:00:00* Test Item Value Reference Range Interpretation Comme [facility] HEMOGLOBIN A1c (test code = 37279) 5.6 % Delfino OrtaCBC W/AUTO [id number] 00:00:00* Test Item Value Reference Range Interpretation [...] ABS NUCLEATED RBCS (test cod e = 58209) 0.00 K/UL Delfino OrtaCOMPREHENSIVE METABOLIC [id number] 00:00:00* Test Item Value Reference Range Interpretation Comme nts GLUCOSE (test code = 2217) 83 MG/DL BUN (test code = 2208) 24 MG/DL CREATININE (test code = 2214) 1.32 MG/DL eGFR (2020 CKD-EPI) (test co de = 69686) 46 ML/MIN/1.73 CALC BUN/CREAT (test code = [...] code = 2219) 13 U/L Delfino F YouCD4/CD8 LYMPHOCYTE [id number] 00:00:00* Test Item Value Reference Range Interpretation Comme nts ABSOLUTE LYMPHOCYTES (test c ode = 97233) 877 PERUL PERCENT CD4 (test code = 27180) 22.4 % ABSOLUTE CD4 (test code = 37183) 196 PERUL PERCENT CD8 (test code = 36136) 58.8 % ABSOLUTE CD8 (test code = 61030) 515 PERUL CD4/CD8 RATIO (test code = 95333) 0.38 Delfino OrtaHIV-1 QUANT, [id number] 00:00:00* Test Item Value Reference Range Interpretation Comme nts HIV-1 VIRAL COPY (test code = 4141) 619 COPIES/ML HIV-1 VIRAL LOG (test code = 36667) 2.792 LOGCOPIES/ML Delfino OrtaHEMOGLOBIN A1c [ADDED]2023-09-11 00:00:00* Test Item Value Reference Range Interpretation Comme nts HEMOGLOBIN A1c (test code = 84993) 5.6 % Delfino OrtaCBC W/AUTO [id number] 00:00:00* Test Item Value Reference Range Interpretation [...] ABS NUCLEATED RBCS (test cod e = 53657) 0.00 K/UL Delfino Endy YouCOMPREHENSIVE METABOLIC [id number] 00:00:00* Test Item Value Reference Range Interpretation Comme nts GLUCOSE (test code = 2217) 83 MG/DL BUN (test code = 2208) 24 MG/DL CREATININE (test code = 2214) 1.32 MG/DL eGFR (2020 CKD-EPI) (test co de = 32085) 46 ML/MIN/1.73 CALC BUN/CREAT (test code = [...] code = 2219) 13 U/L Delfino Endy YouCD4/CD8 LYMPHOCYTE [id number] 00:00:00* Test Item Value Reference Range Interpretation Comme nts ABSOLUTE LYMPHOCYTES (test c ode = 96052) 877 PERUL PERCENT CD4 (test code = 48417) 22.4 % ABSOLUTE CD4 (test code = 15893) 196 PERUL PERCENT CD8 (test code = 51626) 58.8 % ABSOLUTE CD8 (test code = 17450) 515 PERUL CD4/CD8 RATIO (test code = 16474) 0.38 Delfino Endy YouHIV-1 QUANT, [id number] 00:00:00* Test Item Value Reference Range Interpretation Comme nts HIV-1 VIRAL COPY (test code = 4141) 619 COPIES/ML HIV-1 VIRAL LOG (test code = 28924) 2.792 LOGCOPIES/ML Delfino OrtaHEMOGLOBIN A1c [ADDED]2023-09-11 00:00:00* Test Item Value Reference Range Interpretation Comme nts HEMOGLOBIN A1c (test code = 46627) 5.6 % Delfino OrtaCBC W/AUTO [id number] 00:00:00* Test Item Value Reference Range Interpretation [...] ABS NUCLEATED RBCS (test cod e = 66977) 0.00 K/UL Delfino OrtaCOMPREHENSIVE METABOLIC [id number] 00:00:00* Test Item Value Reference Range Interpretation Comme nts GLUCOSE (test code = 2217) 83 MG/DL BUN (test code = 2208) 24 MG/DL CREATININE (test code = 2214) 1.32 MG/DL eGFR (2020 CKD-EPI) (test co de = 29410) 46 ML/MIN/1.73 CALC BUN/CREAT (test code = [...] = 2219) 13 U/L Delfino OrtaCD4/CD8 LYMPHOCYTE [id number] 00:00:00* Test Item Value Reference Range Interpretation Comme [facility] ABSOLUTE LYMPHOCYTES (test c ode = 36663) 877 PERUL PERCENT CD4 (test code = 00083) 22.4 % ABSOLUTE CD4 (test code = 71495) 196 PERUL PERCENT CD8 (test code = 81581) 58.8 % ABSOLUTE CD8 (test code = 76659) 515 PERUL CD4/CD8 RATIO (test code = 44364) 0.38 Delfino OrtaHIV-1 QUANT, [id number] 00:00:00* Test Item Value Reference Range Interpretation Comme [facility] HIV-1 VIRAL COPY (test code = 4141) 619 COPIES/ML HIV-1 VIRAL LOG (test code = 14801) 2.792 LOGCOPIES/ML Delfino OrtaHEMOGLOBIN A1c [ADDED]2023-09-11 00:00:00* Test Item Value Reference Range Interpretation Comme nts HEMOGLOBIN A1c (test code = 31304) 5.6 % Delfino OrtaCBC W/AUTO [id number] 00:00:00* Test Item Value Reference Range Interpretation [...] ABS NUCLEATED RBCS (test cod e = 75317) 0.00 K/UL Delfino F YouCOMPREHENSIVE METABOLIC [id number] 00:00:00* Test Item Value Reference Range Interpretation Comme nts GLUCOSE (test code = 2217) 83 MG/DL BUN (test code = 2208) 24 MG/DL CREATININE (test code = 2214) 1.32 MG/DL eGFR (2020 CKD-EPI) (test co de = 43670) 46 ML/MIN/1.73 CALC BUN/CREAT (test code = [...] code = 2219) 13 U/L Delfino Cedeño [id number] 09:15:45SPECIMEN NUMBER: [id number] CULTURE, URINE SPECIMEN NUMBER: [id number] SPECIMEN COMMENT: URINE SOURCE: URINE REPORT STATUS: FINAL FINAL REPORT: 08/30/2023 10-100,000 CFU/ML MIXED MICROBIAL POPULATION PRESENT, NO PREDOMINATING ORGANISMS;PROBABLE CONTAMINANTS. UNLESS OTHERWISE INDICATED, ALL TESTING PERFORMED AT [facility] [address] [place] [address] BLEACH MAKER: ABBI SHORT M.D. CLIA NUMBER [id number] [facility] [place]. [id number], [id number] 00:00:00* Test Item Value Reference Range Interpretation Comme nts CULTURE, URINE (test code = 91740) SPECIMEN NUMBER: [id number] Delfino Cedeño [id number] 00:00:00* Test Item Value Reference Range Interpretation Comme nts CULTURE, URINE (test code = 19514) SPECIMEN NUMBER: [id number] Delfino Cedeño [id number] 00:00:00* Test Item Value Reference Range Interpretation Comme nts CULTURE, URINE (test code = 85516) SPECIMEN NUMBER: [id number] Delfino Cedeño [id number] 00:00:00* Test Item Value Reference Range Interpretation Comme nts CULTURE, URINE (test code = 20758) SPECIMEN NUMBER: [id number] Delfino Cedeño, [id number] 00:00:00* Test Item Value Reference Range Interpretation Comme nts CULTURE, URINE (test code = 80748) SPECIMEN NUMBER: [id number] Delfino Cedeño, [id number] 00:00:00* Test Item Value Reference Range Interpretation Comme nts CULTURE, URINE (test code = 98226) SPECIMEN NUMBER: [id number] Delfino Cedeño [id number] 00:00:00* Test Item Value Reference Range Interpretation Comme nts CULTURE, URINE (test code = 45134) SPECIMEN NUMBER: [id number] Delfino Cedeño, [id number] 00:00:00* Test Item Value Reference Range Interpretation Comme nts CULTURE, URINE (test code = 53782) SPECIMEN NUMBER: [id number] Delfino Cedeño, [id number] 00:00:00* Test Item Value Reference Range Interpretation Comme nts CULTURE, URINE (test code = 64489) SPECIMEN NUMBER: [id number] Delfino Cedeño, [id number] 00:00:00* Test Item Value Reference Range Interpretation Comme nts CULTURE, URINE (test code = 45317) SPECIMEN NUMBER: [id number] Delfino Cedeño, [id number] 00:00:00* Test Item Value Reference Range Interpretation Comme nts CULTURE, URINE (test code = 46745) SPECIMEN NUMBER: [id number] Delfino ConnollyV-1 INTEGRASE INHIBITOR [id number] 11:03:25* Test Item Value Reference Range Interpretation Comments BICTEGRAVIR (test code = 533054) Susceptible CABOTEGRAVIR (test code = 151883) Susceptible DOLUTEGRAVIR (test code = 33101) Susceptible ELVITEGRAVIR (test code = 35809) Susceptible RALTEGRAVIR (test code = 37086) Susceptible DRUG RESIST MUTATIONS (test code = 238260) INSTI (test code = 97147) None ACC RESIST MUTATIONS (test code = 942826) ACCESSORY MUT: (test code = 72299) None OTHER MUTATIONS (test code = 185643) INSTI (test code = 05292) SEE BELOW HIV-1 SUBTYPE (test code = 458714) B CORDOVA HIVDB PRESTON (test code = 393193) HIVDB_9.6 Other Mutations (INSTI): S24G, A38R, L45S, [...] with the ARV. Methodology:Testing methodology is reverse laboratory monitor polymerase chainreaction (RT-PCR) and next-generation sequencing (NGS) of theintegrase (IN) region of the HIV-1 polymerase (carolynn) gene. HIV-1integrase inhibitor resistance mutations and associatedsusceptibility interpretations are assigned relative to the HIV-1subtype B consensus sequence utilizing the genotypic resistanceinterpretation algorithm of the [place] HIV Drug ResistanceDatabase (HIVDB). This test detects HIV-1 drug resistance mutations at a frequencyas low as 10%, which may account for differences in resistanceinterpretations between methods. Test results should be used andinterpreted in the context of clinical findings and other laboratorytest results. Disclaimer:This test was developed and its performance characteristicsdetermined by [facility] ([facility]). It has not beencleared or approved by the U.S. Food and Drug Administration (FDA).The FDA has determined that such clearance or approval is notnecessary. This test is used for clinical purposes and should not beregarded as investigational or for research. [facility] is qualified toperform high complexity testing under the Clinical LaboratoryImprovement Amendments (CLIA). TESTING PERFORMED AT [facility] [address] [place] [address], [address]ILDING [address] [address] CLIA NO: [id number] UNLESS OTHERWISE INDICATED, ALL TESTING PERFORMED AT [facility] [address] [place] [address] BLEACH MAKER: ABBI SHORT M.D. CLIA NUMBER [id number] [facility] [place]. [id number] HIV-1 INTEGRASE INHIBITOR [id number] 00:00:00* Test Item Value Reference Range Interpretation Comme nts BICTEGRAVIR (test code = 542535) Susceptible CABOTEGRAVIR (test code = 932742) Susceptible DOLUTEGRAVIR (test code = 90417) Susceptible ELVITEGRAVIR (test code = 12086) Susceptible RALTEGRAVIR (test code = 13450) Susceptible DRUG RESIST MUTATIONS (test code = 504565) INSTI (test code = 03243) None ACC RESIST MUTATIONS (test c ode = 074325) ACCESSORY MUT: (test code = 20550) None OTHER MUTATIONS (test code = 635937) INSTI (test code = 31355) SEE BELOW HIV-1 SUBTYPE (test code = 148252) B NATALIE HIVDB PRESTON (test cod e = 255663) HIVDB_9.6 Delfino OrtaHIV-1 INTEGRASE INHIBITOR [id number] 00:00:00* Test Item Value Reference Range Interpretation Comme nts BICTEGRAVIR (test code = 609285) Susceptible CABOTEGRAVIR (test code = 093657) Susceptible DOLUTEGRAVIR (test code = 21022) Susceptible ELVITEGRAVIR (test code = 47559) Susceptible RALTEGRAVIR (test code = 40719) Susceptible DRUG RESIST MUTATIONS (test code = 520644) INSTI (test code = 05603) None ACC RESIST MUTATIONS (test c ode = 898544) ACCESSORY MUT: (test code = 53087) None OTHER MUTATIONS (test code = 309140) INSTI (test code = 86516) SEE BELOW HIV-1 SUBTYPE (test code = 428577) B NATALIE HIVDB PREST[place] (test cod e = 372042) HIVDB_9.6 Delfino Schumacher AustinHIV-1 INTEGRASE INHIBITOR [id number] 00:00:00* Test Item Value Reference Range Interpretation Comme nts BICTEGRAVIR (test code = 971208) Susceptible CABOTEGRAVIR (test code = 120925) Susceptible DOLUTEGRAVIR (test code = 72608) Susceptible ELVITEGRAVIR (test code = 00524) Susceptible RALTEGRAVIR (test code = 03236) Susceptible DRUG RESIST MUTATIONS (test code = 648226) INSTI (test code = 23974) None ACC RESIST MUTATIONS (test c ode = 071546) ACCESSORY MUT: (test code = 05787) None OTHER MUTATIONS (test code = 582092) INSTI (test code = 67527) SEE BELOW HIV-1 SUBTYPE (test code = 910397) B CORDOVA HIVDB PRE[place] (test cod e = 140251) HIVDB_9.6 Delfino OrtaHIV-1 INTEGRASE INHIBITOR [id number] 00:00:00* Test Item Value Reference Range Interpretation Comme nts BICTEGRAVIR (test code = 476110) Susceptible CABOTEGRAVIR (test code = 423617) Susceptible DOLUTEGRAVIR (test code = 37093) Susceptible ELVITEGRAVIR (test code = 19568) Susceptible RALTEGRAVIR (test code = 89044) Susceptible DRUG RESIST MUTATIONS (test code = 446022) INSTI (test code = 19599) None ACC RESIST MUTATIONS (test c ode = 264188) ACCESSORY MUT: (test code = 75518) None OTHER MUTATIONS (test code = 027890) INSTI (test code = 77970) SEE BELOW HIV-1 SUBTYPE (test code = 471079) B CORDOVA HIVDB PREST[place] (test cod e = 533818) HIVDB_9.6 Delfino Schumacher AustinHIV-1 INTEGRASE INHIBITOR [id number] 00:00:00* Test Item Value Reference Range Interpretation Comme nts BICTEGRAVIR (test code = 808342) Susceptible CABOTEGRAVIR (test code = 621218) Susceptible DOLUTEGRAVIR (test code = 61024) Susceptible ELVITEGRAVIR (test code = 11452) Susceptible RALTEGRAVIR (test code = 10710) Susceptible DRUG RESIST MUTATIONS (test code = 671731) INSTI (test code = 21967) None ACC RESIST MUTATIONS (test c ode = 797285) ACCESSORY MUT: (test code = 47378) None OTHER MUTATIONS (test code = 195612) INSTI (test code = 88919) SEE BELOW HIV-1 SUBTYPE (test code = 531309) B CORDOVA HIVDB PRE[place] (test cod e = 940871) HIVDB_9.6 Delfino Schumacher AustinHIV-1 INTEGRASE INHIBITOR [id number] 00:00:00* Test Item Value Reference Range Interpretation Comme nts BICTEGRAVIR (test code = 404017) Susceptible CABOTEGRAVIR (test code = 799581) Susceptible DOLUTEGRAVIR (test code = 20020) Susceptible ELVITEGRAVIR (test code = 87972) Susceptible RALTEGRAVIR (test code = 17566) Susceptible DRUG RESIST MUTATIONS (test code = 563796) INSTI (test code = 89213) None ACC RESIST MUTATIONS (test c ode = 054418) ACCESSORY MUT: (test code = 79770) None OTHER MUTATIONS (test code = 000049) INSTI (test code = 89264) SEE BELOW HIV-1 SUBTYPE (test code = 120986) B CORDOVA HIVDB PRE[place] (test cod e = 590993) HIVDB_9.6 Delfino Schumacher AustinHIV-1 INTEGRASE INHIBITOR [id number] 00:00:00* Test Item Value Reference Range Interpretation Comme nts BICTEGRAVIR (test code = 053160) Susceptible CABOTEGRAVIR (test code = 487019) Susceptible DOLUTEGRAVIR (test code = 16591) Susceptible ELVITEGRAVIR (test code = 80552) Susceptible RALTEGRAVIR (test code = 12374) Susceptible DRUG RESIST MUTATIONS (test code = 721218) INSTI (test code = 48005) None ACC RESIST MUTATIONS (test c ode = 893377) ACCESSORY MUT: (test code = 20245) None OTHER MUTATIONS (test code = 799018) INSTI (test code = 42726) SEE BELOW HIV-1 SUBTYPE (test code = 463978) B CORDOVA HIVDB PRE[place] (test cod e = 752745) HIVDB_9.6 Delfino Schumacher AustinHIV-1 INTEGRASE INHIBITOR [id number] 00:00:00* Test Item Value Reference Range Interpretation Comme nts BICTEGRAVIR (test code = 535395) Susceptible CABOTEGRAVIR (test code = 989659) Susceptible DOLUTEGRAVIR (test code = 61566) Susceptible ELVITEGRAVIR (test code = 22754) Susceptible RALTEGRAVIR (test code = 33176) Susceptible DRUG RESIST MUTATIONS (test code = 238477) INSTI (test code = 27475) None ACC RESIST MUTATIONS (test c ode = 533373) ACCESSORY MUT: (test code = 33321) None OTHER MUTATIONS (test code = 451172) INSTI (test code = 64039) SEE BELOW HIV-1 SUBTYPE (test code = 646713) B CORDOVA HIVDB PRE[place] (test cod e = 392776) HIVDB_9.6 Delfino Schumacher AustinHIV-1 INTEGRASE INHIBITOR [id number] 00:00:00* Test Item Value Reference Range Interpretation Comme nts BICTEGRAVIR (test code = 052162) Susceptible CABOTEGRAVIR (test code = 322973) Susceptible DOLUTEGRAVIR (test code = 99721) Susceptible ELVITEGRAVIR (test code = 70569) Susceptible RALTEGRAVIR (test code = 08994) Susceptible DRUG RESIST MUTATIONS (test code = 141714) INSTI (test code = 37875) None ACC RESIST MUTATIONS (test c ode = 950374) ACCESSORY MUT: (test code = 35252) None OTHER MUTATIONS (test code = 407418) INSTI (test code = 09711) SEE BELOW HIV-1 SUBTYPE (test code = 000644) B CORDOVA HIVDB PREST[place] (test cod e = 824749) HIVDB_9.6 Delfino Schumacher AustinHIV-1 INTEGRASE INHIBITOR [id number] 00:00:00* Test Item Value Reference Range Interpretation Comme nts BICTEGRAVIR (test code = 168918) Susceptible CABOTEGRAVIR (test code = 131307) Susceptible DOLUTEGRAVIR (test code = 12602) Susceptible ELVITEGRAVIR (test code = 57715) Susceptible RALTEGRAVIR (test code = 95709) Susceptible DRUG RESIST MUTATIONS (test code = 151158) INSTI (test code = 57827) None ACC RESIST MUTATIONS (test c ode = 556340) ACCESSORY MUT: (test code = 95284) None OTHER MUTATIONS (test code = 248472) INSTI (test code = 37578) SEE BELOW HIV-1 SUBTYPE (test code = 276610) B CORDOVA HIVDB PRESTON (test cod e = 143817) HIVDB_9.6 Delfino OrtaHIV-1 INTEGRASE INHIBITOR [id number] 00:00:00* Test Item Value Reference Range Interpretation Comme nts BICTEGRAVIR (test code = 492612) Susceptible CABOTEGRAVIR (test code = 026650) Susceptible DOLUTEGRAVIR (test code = 92178) Susceptible ELVITEGRAVIR (test code = 73044) Susceptible RALTEGRAVIR (test code = 47458) Susceptible DRUG RESIST MUTATIONS (test code = 981452) INSTI (test code = 33546) None ACC RESIST MUTATIONS (test c ode = 489491) ACCESSORY MUT: (test code = 99782) None OTHER MUTATIONS (test code = 031480) INSTI (test code = 76493) SEE BELOW HIV-1 SUBTYPE (test code = 329694) B CORDOVA HIVDB PREST[place] (test cod e = 181284) HIVDB_9.6 Delfino Schumacher AustinHIV-1 INTEGRASE INHIBITOR [id number] 00:00:00* Test Item Value Reference Range Interpretation Comme nts BICTEGRAVIR (test code = 443614) Susceptible CABOTEGRAVIR (test code = 435923) Susceptible DOLUTEGRAVIR (test code = 62044) Susceptible ELVITEGRAVIR (test code = 56717) Susceptible RALTEGRAVIR (test code = 27393) Susceptible DRUG RESIST MUTATIONS (test code = 615951) INSTI (test code = 26946) None ACC RESIST MUTATIONS (test c ode = 401624) ACCESSORY MUT: (test code = 29200) None OTHER MUTATIONS (test code = 767117) INSTI (test code = 20334) SEE BELOW HIV-1 SUBTYPE (test code = 466057) B CORDOVA HIVDB PRESTON (test cod e = 340041) HIVDB_9.6 Delfino Schumacher AustinHIV-1 INTEGRASE INHIBITOR [id number] 00:00:00* Test Item Value Reference Range Interpretation Comme nts BICTEGRAVIR (test code = 328586) Susceptible CABOTEGRAVIR (test code = 860121) Susceptible DOLUTEGRAVIR (test code = 78628) Susceptible ELVITEGRAVIR (test code = 71483) Susceptible RALTEGRAVIR (test code = 91732) Susceptible DRUG RESIST MUTATIONS (test code = 538708) INSTI (test code = 05238) None ACC RESIST MUTATIONS (test c ode = 183394) ACCESSORY MUT: (test code = 32610) None OTHER MUTATIONS (test code = 192208) INSTI (test code = 27078) SEE BELOW HIV-1 SUBTYPE (test code = 844874) B CORDOVA HIVDB PRESTON (test cod e = 122786) HIVDB_9.6 Delfino Schumahcer AustinHIV-1 INTEGRASE INHIBITOR [id number] 00:00:00* Test Item Value Reference Range Interpretation Comme nts BICTEGRAVIR (test code = 384883) Susceptible CABOTEGRAVIR (test code = 664677) Susceptible DOLUTEGRAVIR (test code = 65391) Susceptible ELVITEGRAVIR (test code = 40695) Susceptible RALTEGRAVIR (test code = 31934) Susceptible DRUG RESIST MUTATIONS (test code = 704192) INSTI (test code = 79499) None ACC RESIST MUTATIONS (test c ode = 141155) ACCESSORY MUT: (test code = 51708) None OTHER MUTATIONS (test code = 726224) INSTI (test code = 42140) SEE BELOW HIV-1 SUBTYPE (test code = 964199) B CORDOVA HIVDB PREST[place] (test cod e = 315210) HIVDB_9.6 Delfino OrtaHIV-1 INTEGRASE INHIBITOR [id number] 00:00:00* Test Item Value Reference Range Interpretation Comme nts BICTEGRAVIR (test code = 037933) Susceptible CABOTEGRAVIR (test code = 439116) Susceptible DOLUTEGRAVIR (test code = 97903) Susceptible ELVITEGRAVIR (test code = 01360) Susceptible RALTEGRAVIR (test code = 66413) Susceptible DRUG RESIST MUTATIONS (test code = 451485) INSTI (test code = 67022) None ACC RESIST MUTATIONS (test c ode = 762379) ACCESSORY MUT: (test code = 99698) None OTHER MUTATIONS (test code = 123480) INSTI (test code = 34043) SEE BELOW HIV-1 SUBTYPE (test code = 781430) B CORDOVA HIVDB PRESTON (test cod e = 910237) HIVDB_9.6 Delfino Schumacher AustinHIV-1 INTEGRASE INHIBITOR [id number] 00:00:00* Test Item Value Reference Range Interpretation Comme nts BICTEGRAVIR (test code = 084278) Susceptible CABOTEGRAVIR (test code = 697882) Susceptible DOLUTEGRAVIR (test code = 94483) Susceptible ELVITEGRAVIR (test code = 20134) Susceptible RALTEGRAVIR (test code = 10196) Susceptible DRUG RESIST MUTATIONS (test code = 447533) INSTI (test code = 64838) None ACC RESIST MUTATIONS (test c ode = 828505) ACCESSORY MUT: (test code = 60694) None OTHER MUTATIONS (test code = 504172) INSTI (test code = 73927) SEE BELOW HIV-1 SUBTYPE (test code = 924762) B CORDOVA HIVDB PRESTON (test cod e = 035320) HIVDB_9.6 Delfino OrtaCD4/CD8 LYMPHOCYTE [id number] 12:40:38* Test Item Value Reference Range Interpretation Comme nts ABSOLUTE LYMPHOCYTES (test code = 53602) 941 PER UL 8913-0490 L Specimen rec eived outside of temperature specifications. Resultsreviewed by Abbi Short M.D. PERCENT CD4 (test code = 91486) 16.3 % 34.0-65.0 L ABSOLUTE CD4 (test code = 95477) 154 PER UL 520-1470 L PERCENT CD8 (test code = 18464) 52.5 % 13.0-38.0 H ABSOLUTE CD8 (test code = 05100) 494 PER UL 205-920 CD4/CD8 RATIO (test code = 83340) 0.31 0.92-3.41 L CD4/CD8 LYMPHOCYTE [id number] 00:00:00* Test Item Value Reference Range Interpretation Comme nts ABSOLUTE LYMPHOCYTES (test c ode = 17195) 941 PERUL PERCENT CD4 (test code = 74315) 16.3 % ABSOLUTE CD4 (test code = 59359) 154 PERUL PERCENT CD8 (test code = 69111) 52.5 % ABSOLUTE CD8 (test code = 23537) 494 PERUL CD4/CD8 RATIO (test code = 37163) 0.31 Delfino OrtaCD4/CD8 LYMPHOCYTE [id number] 00:00:00* Test Item Value Reference Range Interpretation Comme nts ABSOLUTE LYMPHOCYTES (test c ode = 61883) 941 PERUL PERCENT CD4 (test code = 04777) 16.3 % ABSOLUTE CD4 (test code = 63344) 154 PERUL PERCENT CD8 (test code = 26384) 52.5 % ABSOLUTE CD8 (test code = 24426) 494 PERUL CD4/CD8 RATIO (test code = 57918) 0.31 Delifno Schumacher AustinCD4/CD8 LYMPHOCYTE [id number] 00:00:00* Test Item Value Reference Range Interpretation Comme nts ABSOLUTE LYMPHOCYTES (test c ode = 93029) 941 PERUL PERCENT CD4 (test code = 03567) 16.3 % ABSOLUTE CD4 (test code = 93936) 154 PERUL PERCENT CD8 (test code = 41961) 52.5 % ABSOLUTE CD8 (test code = 69904) 494 PERUL CD4/CD8 RATIO (test code = 45803) 0.31 Delfino Schumacher AustinCD4/CD8 LYMPHOCYTE [id number] 00:00:00* Test Item Value Reference Range Interpretation Comme nts ABSOLUTE LYMPHOCYTES (test c ode = 62723) 941 PERUL PERCENT CD4 (test code = 73249) 16.3 % ABSOLUTE CD4 (test code = 93808) 154 PERUL PERCENT CD8 (test code = 32749) 52.5 % ABSOLUTE CD8 (test code = 02936) 494 PERUL CD4/CD8 RATIO (test code = 73925) 0.31 Delfino Schmuacher AustinCD4/CD8 LYMPHOCYTE [id number] 00:00:00* Test Item Value Reference Range Interpretation Comme nts ABSOLUTE LYMPHOCYTES (test c ode = 42500) 941 PERUL PERCENT CD4 (test code = 85955) 16.3 % ABSOLUTE CD4 (test code = 56149) 154 PERUL PERCENT CD8 (test code = 51672) 52.5 % ABSOLUTE CD8 (test code = 99313) 494 PERUL CD4/CD8 RATIO (test code = 51557) 0.31 Delfino Schumacher AustinCD4/CD8 LYMPHOCYTE [id number] 00:00:00* Test Item Value Reference Range Interpretation Comme nts ABSOLUTE LYMPHOCYTES (test c ode = 90895) 941 PERUL PERCENT CD4 (test code = 45766) 16.3 % ABSOLUTE CD4 (test code = 60242) 154 PERUL PERCENT CD8 (test code = 26571) 52.5 % ABSOLUTE CD8 (test code = 39686) 494 PERUL CD4/CD8 RATIO (test code = 77931) 0.31 Delfino Schumacher AustinCD4/CD8 LYMPHOCYTE [id number] 00:00:00* Test Item Value Reference Range Interpretation Comme nts ABSOLUTE LYMPHOCYTES (test c ode = 23366) 941 PERUL PERCENT CD4 (test code = 06448) 16.3 % ABSOLUTE CD4 (test code = 40991) 154 PERUL PERCENT CD8 (test code = 47196) 52.5 % ABSOLUTE CD8 (test code = 39790) 494 PERUL CD4/CD8 RATIO (test code = 51429) 0.31 Delfino Schumacher AustinCD4/CD8 LYMPHOCYTE [id number] 00:00:00* Test Item Value Reference Range Interpretation Comme nts ABSOLUTE LYMPHOCYTES (test c ode = 53836) 941 PERUL PERCENT CD4 (test code = 67470) 16.3 % ABSOLUTE CD4 (test code = 55939) 154 PERUL PERCENT CD8 (test code = 86407) 52.5 % ABSOLUTE CD8 (test code = 92263) 494 PERUL CD4/CD8 RATIO (test code = 39649) 0.31 Delfino Schumacher AustinCD4/CD8 LYMPHOCYTE [id number] 00:00:00* Test Item Value Reference Range Interpretation Comme nts ABSOLUTE LYMPHOCYTES (test c ode = 63313) 941 PERUL PERCENT CD4 (test code = 70218) 16.3 % ABSOLUTE CD4 (test code = 74645) 154 PERUL PERCENT CD8 (test code = 99836) 52.5 % ABSOLUTE CD8 (test code = 52953) 494 PERUL CD4/CD8 RATIO (test code = 09505) 0.31 Delfino Schumacher AustinCD4/CD8 LYMPHOCYTE [id number] 00:00:00* Test Item Value Reference Range Interpretation Comme nts ABSOLUTE LYMPHOCYTES (test c ode = 84309) 941 PERUL PERCENT CD4 (test code = 96020) 16.3 % ABSOLUTE CD4 (test code = 63081) 154 PERUL PERCENT CD8 (test code = 23005) 52.5 % ABSOLUTE CD8 (test code = 74391) 494 PERUL CD4/CD8 RATIO (test code = 86043) 0.31 Delfino Schumacher AustinCD4/CD8 LYMPHOCYTE [id number] 00:00:00* Test Item Value Reference Range Interpretation Comme nts ABSOLUTE LYMPHOCYTES (test c ode = 29683) 941 PERUL PERCENT CD4 (test code = 83798) 16.3 % ABSOLUTE CD4 (test code = 15707) 154 PERUL PERCENT CD8 (test code = 15893) 52.5 % ABSOLUTE CD8 (test code = 43618) 494 PERUL CD4/CD8 RATIO (test code = 10219) 0.31 Delfino Schumacher AustinCD4/CD8 LYMPHOCYTE [id number] 00:00:00* Test Item Value Reference Range Interpretation Comme nts ABSOLUTE LYMPHOCYTES (test c ode = 02817) 941 PERUL PERCENT CD4 (test code = 68464) 16.3 % ABSOLUTE CD4 (test code = 11699) 154 PERUL PERCENT CD8 (test code = 68569) 52.5 % ABSOLUTE CD8 (test code = 38922) 494 PERUL CD4/CD8 RATIO (test code = 55830) 0.31 Delfino Schumacher AustinCD4/CD8 LYMPHOCYTE [id number] 00:00:00* Test Item Value Reference Range Interpretation Comme nts ABSOLUTE LYMPHOCYTES (test c ode = 77274) 941 PERUL PERCENT CD4 (test code = 25288) 16.3 % ABSOLUTE CD4 (test code = 19786) 154 PERUL PERCENT CD8 (test code = 28948) 52.5 % ABSOLUTE CD8 (test code = 98825) 494 PERUL CD4/CD8 RATIO (test code = 52663) 0.31 Delfino Schumacher AustinCD4/CD8 LYMPHOCYTE [id number] 00:00:00* Test Item Value Reference Range Interpretation Comme nts ABSOLUTE LYMPHOCYTES (test c ode = 91407) 941 PERUL PERCENT CD4 (test code = 66783) 16.3 % ABSOLUTE CD4 (test code = 18037) 154 PERUL PERCENT CD8 (test code = 52833) 52.5 % ABSOLUTE CD8 (test code = 89252) 494 PERUL CD4/CD8 RATIO (test code = 26323) 0.31 Delfino Schumacher AustinCD4/CD8 LYMPHOCYTE [id number] 00:00:00* Test Item Value Reference Range Interpretation Comme nts ABSOLUTE LYMPHOCYTES (test c ode = 26182) 941 PERUL PERCENT CD4 (test code = 98532) 16.3 % ABSOLUTE CD4 (test code = 37639) 154 PERUL PERCENT CD8 (test code = 48205) 52.5 % ABSOLUTE CD8 (test code = 63915) 494 PERUL CD4/CD8 RATIO (test code = 84850) 0.31 Delfino Schumacher YouCD4/CD8 LYMPHOCYTE [id number] 00:00:00* Test Item Value Reference Range Interpretation Comme nts ABSOLUTE LYMPHOCYTES (test c ode = 88210) 941 PERUL PERCENT CD4 (test code = 77018) 16.3 % ABSOLUTE CD4 (test code = 65361) 154 PERUL PERCENT CD8 (test code = 73473) 52.5 % ABSOLUTE CD8 (test code = 18115) 494 PERUL CD4/CD8 RATIO (test code = 56964) 0.31 Delfino Schumacher YouCBC W/AUTO DIFF WITH [id number] 11:40:06* Test Item Value Reference Range Interpretation [...] 0.00-0.10 ABS NUCLEATED RBCS (test code = 81459) 0.00 K/UL 0.00-0.11 COMMENTS (test code = 1016) (NOTE) MODERATE MACROCY TOSIS SLIGHT TOXIC GRANULATION PLATELETS APPEAR NORMAL SEE ADDITIONAL COMMENTS BELOW: SLIGHT VACUOLIZATION OF NEUTROPHILS COMPREHENSIVE METABOLIC [id number] 05:24:56* Test Item Value Reference Range Interpretation Comme nts GLUCOSE (test code = 2217) 90 MG/DL 70-99 BUN (test code = 2208) 40 MG/DL 8-23 H CREATININE (test code = 2214) 2.05 MG/DL 0.60-1.30 H eGFR (2020 CKD-EPI) (test co de = 85387) 27 ML/MIN/1.73 >60 L CALC BUN/CREAT (test code = 2235) 20 RATIO 6-28 SODIUM (test code = 2231) 144 MEQ/L 133-146 POTASSIUM (test code = [...] code = 2219) 16 U/L 5-40 LIPID [id number] 05:24:56* Test Item Value Reference Range Interpretation [...] SPECIMENS. FOR MOREINFORMATION, SEE CLIENT ANNOUNCEMENT AT [email or web address] RISK RATIO LDL/HDL (test code = 2238) 0.91 RATIO <3.22 LIPID [id number] 00:00:00* Test Item Value Reference Range Interpretation Comme nts CHOLESTEROL (test code = 2210) 212 MG/DL TRIGLYCERIDES (test code = 2232) 80 MG/DL HDL CHOLESTEROL (test code = 2220) 102 MG/DL CALC LDL CHOL (test code = 2237) 93 MG/DL RISK RATIO LDL/HDL (test cod e = 2238) 0.91 RATIO Delfino Schumacher YouCBC W/AUTO [id number] 00:00:00* Test Item Value Reference Range Interpretation [...] ABS NUCLEATED RBCS (test cod e = 61367) 0.00 K/UL COMMENTS (test code = 1016) (NOTE) Delfino OrtaCOMPREHENSIVE METABOLIC [id number] 00:00:00* Test Item Value Reference Range Interpretation Comme nts GLUCOSE (test code = 2217) 90 MG/DL BUN (test code = 2208) 40 MG/DL CREATININE (test code = 2214) 2.05 MG/DL eGFR (2020 CKD-EPI) (test co de = 42754) 27 ML/MIN/1.73 CALC BUN/CREAT (test code = [...] code = 2219) 16 U/L Delfino OrtaLIPID [id number] 00:00:00* Test Item Value Reference Range Interpretation Comme nts CHOLESTEROL (test code = 2210) 212 MG/DL TRIGLYCERIDES (test code = 2232) 80 MG/DL HDL CHOLESTEROL (test code = 2220) 102 MG/DL CALC LDL CHOL (test code = 2237) 93 MG/DL RISK RATIO LDL/HDL (test cod e = 2238) 0.91 RATIO Delfino OrtaCBC W/AUTO [id number] 00:00:00* Test Item Value Reference Range Interpretation [...] ABS NUCLEATED RBCS (test cod e = 82146) 0.00 K/UL COMMENTS (test code = 1016) (NOTE) Delfino F AustinCOMPREHENSIVE METABOLIC [id number] 00:00:00* Test Item Value Reference Range Interpretation Comme nts GLUCOSE (test code = 2217) 90 MG/DL BUN (test code = 2208) 40 MG/DL CREATININE (test code = 2214) 2.05 MG/DL eGFR (2020 CKD-EPI) (test co de = 06670) 27 ML/MIN/1.73 CALC BUN/CREAT (test code = [...] ALT (test code = 2219) 16 U/L Dlefino OrtaLIPID [id number] 00:00:00* Test Item Value Reference Range Interpretation Comme nts CHOLESTEROL (test code = 2210) 212 MG/DL TRIGLYCERIDES (test code = 2232) 80 MG/DL HDL CHOLESTEROL (test code = 2220) 102 MG/DL CALC LDL CHOL (test code = 2237) 93 MG/DL RISK RATIO LDL/HDL (test cod e = 2238) 0.91 RATIO Delfino OrtaCBC W/AUTO [id number] 00:00:00* Test Item Value Reference Range Interpretation [...] ABS NUCLEATED RBCS (test cod e = 82768) 0.00 K/UL COMMENTS (test code = 1016) (NOTE) Delfino OrtaCOMPREHENSIVE METABOLIC [id number] 00:00:00* Test Item Value Reference Range Interpretation Comme nts GLUCOSE (test code = 2217) 90 MG/DL BUN (test code = 2208) 40 MG/DL CREATININE (test code = 2214) 2.05 MG/DL eGFR (2020 CKD-EPI) (test co de = 40805) 27 ML/MIN/1.73 CALC BUN/CREAT (test code = [...] code = 2219) 16 U/L Delfino OrtaLIPID [id number] 00:00:00* Test Item Value Reference Range Interpretation Comme nts CHOLESTEROL (test code = 2210) 212 MG/DL TRIGLYCERIDES (test code = 2232) 80 MG/DL HDL CHOLESTEROL (test code = 2220) 102 MG/DL CALC LDL CHOL (test code = 2237) 93 MG/DL RISK RATIO LDL/HDL (test cod e = 2238) 0.91 RATIO Delfino OrtaCBC W/AUTO [id number] 00:00:00* Test Item Value Reference Range Interpretation [...] ABS NUCLEATED RBCS (test cod e = 75343) 0.00 K/UL COMMENTS (test code = 1016) (NOTE) Delfino OrtaCOMPREHENSIVE METABOLIC [id number] 00:00:00* Test Item Value Reference Range Interpretation Comme nts GLUCOSE (test code = 2217) 90 MG/DL BUN (test code = 2208) 40 MG/DL CREATININE (test code = 2214) 2.05 MG/DL eGFR (2020 CKD-EPI) (test co de = 14444) 27 ML/MIN/1.73 CALC BUN/CREAT (test code = [...] code = 2219) 16 U/L Delfino OrtaLIPID [id number] 00:00:00* Test Item Value Reference Range Interpretation Comme nts CHOLESTEROL (test code = 2210) 212 MG/DL TRIGLYCERIDES (test code = 2232) 80 MG/DL HDL CHOLESTEROL (test code = 2220) 102 MG/DL CALC LDL CHOL (test code = 2237) 93 MG/DL RISK RATIO LDL/HDL (test cod e = 2238) 0.91 RATIO Delfino OrtaCBC W/AUTO [id number] 00:00:00* Test Item Value Reference Range Interpretation [...] ABS NUCLEATED RBCS (test cod e = 79356) 0.00 K/UL COMMENTS (test code = 1016) (NOTE) Delfino OrtaCOMPREHENSIVE METABOLIC [id number] 00:00:00* Test Item Value Reference Range Interpretation Comme nts GLUCOSE (test code = 2217) 90 MG/DL BUN (test code = 2208) 40 MG/DL CREATININE (test code = 2214) 2.05 MG/DL eGFR (2020 CKD-EPI) (test co de = 31738) 27 ML/MIN/1.73 CALC BUN/CREAT (test code = [...] code = 2219) 16 U/L Delfino OrtaLIPID [id number] 00:00:00* Test Item Value Reference Range Interpretation Comme nts CHOLESTEROL (test code = 2210) 212 MG/DL TRIGLYCERIDES (test code = 2232) 80 MG/DL HDL CHOLESTEROL (test code = 2220) 102 MG/DL CALC LDL CHOL (test code = 2237) 93 MG/DL RISK RATIO LDL/HDL (test cod e = 2238) 0.91 RATIO Delfino OrtaCBC W/AUTO [id number] 00:00:00* Test Item Value Reference Range Interpretation [...] ABS NUCLEATED RBCS (test cod e = 09563) 0.00 K/UL COMMENTS (test code = 1016) (NOTE) Delfino OrtaCOMPREHENSIVE METABOLIC [id number] 00:00:00* Test Item Value Reference Range Interpretation Comme nts GLUCOSE (test code = 2217) 90 MG/DL BUN (test code = 2208) 40 MG/DL CREATININE (test code = 2214) 2.05 MG/DL eGFR (2020 CKD-EPI) (test co de = 45872) 27 ML/MIN/1.73 CALC BUN/CREAT (test code = [...] code = 2219) 16 U/L Delfino OrtaLIPID [id number] 00:00:00* Test Item Value Reference Range Interpretation Comme nts CHOLESTEROL (test code = 2210) 212 MG/DL TRIGLYCERIDES (test code = 2232) 80 MG/DL HDL CHOLESTEROL (test code = 2220) 102 MG/DL CALC LDL CHOL (test code = 2237) 93 MG/DL RISK RATIO LDL/HDL (test cod e = 2238) 0.91 RATIO Delfino Endy OrtaCBC W/AUTO [id number] 00:00:00* Test Item Value Reference Range Interpretation [...] ABS NUCLEATED RBCS (test cod e = 10710) 0.00 K/UL COMMENTS (test code = 1016) (NOTE) Delfino OrtaCOMPREHENSIVE METABOLIC [id number] 00:00:00* Test Item Value Reference Range Interpretation Comme nts GLUCOSE (test code = 2217) 90 MG/DL BUN (test code = 2208) 40 MG/DL CREATININE (test code = 2214) 2.05 MG/DL eGFR (2020 CKD-EPI) (test co de = 40212) 27 ML/MIN/1.73 CALC BUN/CREAT (test code = [...] code = 2219) 16 U/L Delfino OrtaLIPID [id number] 00:00:00* Test Item Value Reference Range Interpretation Comme nts CHOLESTEROL (test code = 2210) 212 MG/DL TRIGLYCERIDES (test code = 2232) 80 MG/DL HDL CHOLESTEROL (test code = 2220) 102 MG/DL CALC LDL CHOL (test code = 2237) 93 MG/DL RISK RATIO LDL/HDL (test cod e = 2238) 0.91 RATIO Delfino OrtaCBC W/AUTO [id number] 00:00:00* Test Item Value Reference Range Interpretation [...] ABS NUCLEATED RBCS (test cod e = 46103) 0.00 K/UL COMMENTS (test code = 1016) (NOTE) Delfino OrtaCOMPREHENSIVE METABOLIC [id number] 00:00:00* Test Item Value Reference Range Interpretation Comme nts GLUCOSE (test code = 2217) 90 MG/DL BUN (test code = 2208) 40 MG/DL CREATININE (test code = 2214) 2.05 MG/DL eGFR (2020 CKD-EPI) (test co de = 42365) 27 ML/MIN/1.73 CALC BUN/CREAT (test code = [...] code = 2219) 16 U/L Delfino OrtaLIPID [id number] 00:00:00* Test Item Value Reference Range Interpretation Comme nts CHOLESTEROL (test code = 2210) 212 MG/DL TRIGLYCERIDES (test code = 2232) 80 MG/DL HDL CHOLESTEROL (test code = 2220) 102 MG/DL CALC LDL CHOL (test code = 2237) 93 MG/DL RISK RATIO LDL/HDL (test cod e = 2238) 0.91 RATIO Delfino Schumacher YouCBC W/AUTO [id number] 00:00:00* Test Item Value Reference Range Interpretation [...] ABS NUCLEATED RBCS (test cod e = 31803) 0.00 K/UL COMMENTS (test code = 1016) (NOTE) Delfino OrtaCOMPREHENSIVE METABOLIC [id number] 00:00:00* Test Item Value Reference Range Interpretation Comme nts GLUCOSE (test code = 2217) 90 MG/DL BUN (test code = 2208) 40 MG/DL CREATININE (test code = 2214) 2.05 MG/DL eGFR (2020 CKD-EPI) (test co de = 60133) 27 ML/MIN/1.73 CALC BUN/CREAT (test code = [...] code = 2219) 16 U/L Delfino OrtaLIPID [id number] 00:00:00* Test Item Value Reference Range Interpretation Comme nts CHOLESTEROL (test code = 2210) 212 MG/DL TRIGLYCERIDES (test code = 2232) 80 MG/DL HDL CHOLESTEROL (test code = 2220) 102 MG/DL CALC LDL CHOL (test code = 2237) 93 MG/DL RISK RATIO LDL/HDL (test cod e = 2238) 0.91 RATIO Delfino OrtaCBC W/AUTO [id number] 00:00:00* Test Item Value Reference Range Interpretation [...] ABS NUCLEATED RBCS (test cod e = 52403) 0.00 K/UL COMMENTS (test code = 1016) (NOTE) Delfino OrtaCOMPREHENSIVE METABOLIC [id number] 00:00:00* Test Item Value Reference Range Interpretation Comme nts GLUCOSE (test code = 2217) 90 MG/DL BUN (test code = 2208) 40 MG/DL CREATININE (test code = 2214) 2.05 MG/DL eGFR (2020 CKD-EPI) (test co de = 16061) 27 ML/MIN/1.73 CALC BUN/CREAT (test code = [...] code = 2219) 16 U/L Delfino OrtaLIPID [id number] 00:00:00* Test Item Value Reference Range Interpretation Comme nts CHOLESTEROL (test code = 2210) 212 MG/DL TRIGLYCERIDES (test code = 2232) 80 MG/DL HDL CHOLESTEROL (test code = 2220) 102 MG/DL CALC LDL CHOL (test code = 2237) 93 MG/DL RISK RATIO LDL/HDL (test cod e = 2238) 0.91 RATIO Delfino OrtaCBC W/AUTO [id number] 00:00:00* Test Item Value Reference Range Interpretation [...] ABS NUCLEATED RBCS (test cod e = 02239) 0.00 K/UL COMMENTS (test code = 1016) (NOTE) Delfino OrtaCOMPREHENSIVE METABOLIC [id number] 00:00:00* Test Item Value Reference Range Interpretation Comme nts GLUCOSE (test code = 2217) 90 MG/DL BUN (test code = 2208) 40 MG/DL CREATININE (test code = 2214) 2.05 MG/DL eGFR (2020 CKD-EPI) (test co de = 23420) 27 ML/MIN/1.73 CALC BUN/CREAT (test code = [...] code = 2219) 16 U/L Delfino OrtaLIPID [id number] 00:00:00* Test Item Value Reference Range Interpretation Comme nts CHOLESTEROL (test code = 2210) 212 MG/DL TRIGLYCERIDES (test code = 2232) 80 MG/DL HDL CHOLESTEROL (test code = 2220) 102 MG/DL CALC LDL CHOL (test code = 2237) 93 MG/DL RISK RATIO LDL/HDL (test cod e = 2238) 0.91 RATIO Delfino OrtaCBC W/AUTO [id number] 00:00:00* Test Item Value Reference Range Interpretation [...] ABS NUCLEATED RBCS (test cod e = 92960) 0.00 K/UL COMMENTS (test code = 1016) (NOTE) Delfino OrtaCOMPREHENSIVE METABOLIC [id number] 00:00:00* Test Item Value Reference Range Interpretation Comme nts GLUCOSE (test code = 2217) 90 MG/DL BUN (test code = 2208) 40 MG/DL CREATININE (test code = 2214) 2.05 MG/DL eGFR (2020 CKD-EPI) (test co de = 05752) 27 ML/MIN/1.73 CALC BUN/CREAT (test code = [...] code = 2219) 16 U/L Delfino OrtaLIPID [id number] 00:00:00* Test Item Value Reference Range Interpretation Comme nts CHOLESTEROL (test code = 2210) 212 MG/DL TRIGLYCERIDES (test code = 2232) 80 MG/DL HDL CHOLESTEROL (test code = 2220) 102 MG/DL CALC LDL CHOL (test code = 2237) 93 MG/DL RISK RATIO LDL/HDL (test cod e = 2238) 0.91 RATIO Delfino OrtaCBC W/AUTO [id number] 00:00:00* Test Item Value Reference Range Interpretation [...] ABS NUCLEATED RBCS (test cod e = 75585) 0.00 K/UL COMMENTS (test code = 1016) (NOTE) Delfino OrtaCOMPREHENSIVE METABOLIC [id number] 00:00:00* Test Item Value Reference Range Interpretation Comme nts GLUCOSE (test code = 2217) 90 MG/DL BUN (test code = 2208) 40 MG/DL CREATININE (test code = 2214) 2.05 MG/DL eGFR (2020 CKD-EPI) (test co de = 86311) 27 ML/MIN/1.73 CALC BUN/CREAT (test code = [...] code = 2219) 16 U/L Delfino OrtaLIPID [id number] 00:00:00* Test Item Value Reference Range Interpretation Comme nts CHOLESTEROL (test code = 2210) 212 MG/DL TRIGLYCERIDES (test code = 2232) 80 MG/DL HDL CHOLESTEROL (test code = 2220) 102 MG/DL CALC LDL CHOL (test code = 2237) 93 MG/DL RISK RATIO LDL/HDL (test cod e = 2238) 0.91 RATIO Delfino OrtaCBC W/AUTO [id number] 00:00:00* Test Item Value Reference Range Interpretation [...] ABS NUCLEATED RBCS (test cod e = 58801) 0.00 K/UL COMMENTS (test code = 1016) (NOTE) Delfino OrtaCOMPREHENSIVE METABOLIC [id number] 00:00:00* Test Item Value Reference Range Interpretation Comme nts GLUCOSE (test code = 2217) 90 MG/DL BUN (test code = 2208) 40 MG/DL CREATININE (test code = 2214) 2.05 MG/DL eGFR (2020 CKD-EPI) (test co de = 26092) 27 ML/MIN/1.73 CALC BUN/CREAT (test code = [...] code = 2219) 16 U/L Delfino OrtaLIPID [id number] 00:00:00* Test Item Value Reference Range Interpretation Comme nts CHOLESTEROL (test code = 2210) 212 MG/DL TRIGLYCERIDES (test code = 2232) 80 MG/DL HDL CHOLESTEROL (test code = 2220) 102 MG/DL CALC LDL CHOL (test code = 2237) 93 MG/DL RISK RATIO LDL/HDL (test cod e = 2238) 0.91 RATIO Delfino OrtaCBC W/AUTO [id number] 00:00:00* Test Item Value Reference Range Interpretation [...] ABS NUCLEATED RBCS (test cod e = 03265) 0.00 K/UL COMMENTS (test code = 1016) (NOTE) Delfino OrtaCOMPREHENSIVE METABOLIC [id number] 00:00:00* Test Item Value Reference Range Interpretation Comme nts GLUCOSE (test code = 2217) 90 MG/DL BUN (test code = 2208) 40 MG/DL CREATININE (test code = 2214) 2.05 MG/DL eGFR (2020 CKD-EPI) (test co de = 66117) 27 ML/MIN/1.73 CALC BUN/CREAT (test code = [...] code = 2219) 16 U/L Delfino OrtaLIPID [id number] 00:00:00* Test Item Value Reference Range Interpretation Comme nts CHOLESTEROL (test code = 2210) 212 MG/DL TRIGLYCERIDES (test code = 2232) 80 MG/DL HDL CHOLESTEROL (test code = 2220) 102 MG/DL CALC LDL CHOL (test code = 2237) 93 MG/DL RISK RATIO LDL/HDL (test cod e = 2238) 0.91 RATIO Delfino OrtaCBC W/AUTO [id number] 00:00:00* Test Item Value Reference Range Interpretation [...] ABS NUCLEATED RBCS (test cod e = 54170) 0.00 K/UL COMMENTS (test code = 1016) (NOTE) Delfino OrtaCOMPREHENSIVE METABOLIC [id number] 00:00:00* Test Item Value Reference Range Interpretation Comme nts GLUCOSE (test code = 2217) 90 MG/DL BUN (test code = 2208) 40 MG/DL CREATININE (test code = 2214) 2.05 MG/DL eGFR (2020 CKD-EPI) (test co de = 66027) 27 ML/MIN/1.73 CALC BUN/CREAT (test code = [...] code = 2219) 16 U/L Delfino Schumacher [facility] with [id number] 19:43:14* Test Item Value Reference Range Interpretation [...] 33.6 g/dL 31.6-35.1 RDW-SD (test code = 01918-7) 54.3 fL 39.0-49.9 H RDW-CV (test code = 788-0) 13.4 % 12.0-15.5 PLT (test code = 777-3) 133 166-358 L MPV (test code = 67911-8) 11.5 fL 9.5-12.9 IPF % (test code = 1382237429) 5.6 % 1.3-7.7 Platelet count measured by fluorescence method. NRBC/100 WBC (test code = 8229788766) 0.0 0.0-10.0 NRBC x10^3 (test code = 3159653202) See_Comment [Automated [employer] ge] The system which generated this result transmitted reference range: 10*3/?L. The reference range was not used to interpret this result as normal/abnormal. GRAN MAT (NEUT) % (test code = 770-8) 91.9 % IMM GRAN % (test code = 7039857781) 0.30 % LYMPH % (test code = 736-9) 5.6 % MONO % (test code = 5905-5) 2.1 % EOS % (test code = 713-8) 0.0 % BASO % (test code = 706-2) 0.1 % GRAN MAT x10^3(ANC) (test code = 3292704805) 7.05 10*3/uL 1.88-7.09 IMM GRAN x10^3 (test code = 8215250466) 0.00-0.06 LYMPH x10^3 (test code = 731-0) 0.43 10*3/uL 1.32-3.29 L MONO x10^3 (test code = 742-7) 0.16 10*3/uL 0.33-0.92 L EOS x10^3 (test code = 711-2) 0.03-0.39 L BASO x10^3 (test code = 704-7) 0.01-0.07 Lab Interpretation (test code = 71175-4) Abnormal [facility]. Metabolic Panel ([id number] 19:32:09* Test Item Value Reference Range Interpretation Comme nts NA (test code = 3532155208) 139 mmol/L 135-145 K (test code = 4955094874) 3.9 mmol/L 3.5-5.0 CL (test code = 9721591124) 115 mmol/L 98-108 H CO2 TOTAL (test code = 9354017813) 16 mmol/L 23-31 L AGAP (test code = 7225142869) 8 2-16 BUN (test code = 7492734217) 30 mg/dL 7-23 H GLUCOSE (test code = 8163192665) 173 mg/dL 70-110 H CREATININE (test code = 2160-0) 1.69 mg/dL 0.50-1.04 H TOTAL BILI (test code = 2000686593) 0.4 mg/dL 0.1-1.1 CALCIUM (test code = 8188522890) 10.1 mg/dL 8.6-10.6 T PROTEIN (test code = 2286123939) 8.5 g/dL 6.3-8.2 H ALBUMIN (test code = 6226775754) 3.9 g/dL 3.5-5.0 ALK PHOS (test code = 5119597085) 76 U/L 34-122 ALTv (test code = 1742-6) 35 U/L 5-35 AST(SGOT) (test code = 4899804309) 54 U/L 13-40 H eGFR (test code = 19544-3) 34.4 mL/min/1.73m2 CKD-EPI eGFR (2020). Assuming creatinine has been stable day-to-day for at least three months, the eGFR indicates Category G3b (30 - 44 mL/min/1.73 m2) Lab Interpretation (test code = 47334-5) [facility] 15:37:06* Test Item Value Reference Range Interpretation Comme nts Height (test code = 3992193555) 63 in Weight (test code = 4180140405) 140 lbs Systolic BP (test code = 7010127665) 118 mmHg Diastolic BP (test code = 3252110161) 58 mmHg Heart Rate (test code = 7972325527) 78 bpm BSA (test code = 7129037626) 1.66 m2 Ao root diam (test code = 4545949216) 2.90 cm Aortic root (test code = 0634320685) 2.9 cm Ao root annulus (test code = 7168233111) 2.9 cm LVOT diameter (test code = 2754809204) 1.96 cm LVOT area (test code = 4024919138) 3.00 cm2 LA size (test code = 2020332039) 3.2 cm LVIDD (test code = 6383123824) 2.90 cm Left Ventricular End Diastolic Volume by Teichholz Method (test code = 7835907) 32.6 mL IVS (test code = 9382309000) 1.26 cm Interventricular Septum Diastolic Thickness by 2D (test code = 1292745) 1.26 cm LVPWD (test code = 0201832395) 1.23 cm PW (test code = 1956498378) 1.23 cm 0.6-1.1 EF(Teich) (test code = 7899130359) 55.00 % LVIDS (test code = 1002025402) 2.11 cm Left Ventricular End Systolic Volume by Teichholz Method (test code = 9919517) 14.7 mL FS (test code = 4383539914) 27 % EF - 2D (test code = 11726348) 55.00 % LAV(MOD-sp4) (test code = 0484553178) 20.20 mL E wave decelartion time (test code = 9955954337) 0.18 s MV Peak E Barber (test code = 5507193285) 72.8 cm/s MV stenosis pressure 1/2 time (test code = 3705883498) 51.2 ms MV Peak A Barber (test code = 2497903296) 73.4 cm/s E/A ratio (test code = 3282909245) 0.99 ratio MV Prop V (test code = 2781011362) 180.80 cm/s MV E/e' septal (test code = 4450637842) 10.8 cm/s Tapse (test code = 3163690900) 2.08 cm LVOT stroke volume (test code = 4982038790) 73.30 cm3 LVOT peak barber (test code = 4038338223) 125.3 cm/s LVOT mn grad (test code = 2085963425) 3.6 mmHg AV LVOT peak gradient (test code = 0876272644) 6.3 mmHg LVOT peak VTI (test code = 6140206910) 24.3 cm LV V1 mean (test code = 4475011860) 89.60 cm/s Aortic valve mean velocity (test code = 6888189885) 236.9 cm/s Ao peak barber (test code = 5148072811) 333.6 cm/s Ao VTI (test code = 4772411467) 58.2 cm AV area by cont VTI (test code = 0312285838) 1.3 cm2 AV area peak barber (test code = 1097737644) 1.1 cm2 Ao max PG (test code = 3941954007) 44.60 mm[Hg] AV peak gradient (test code = 0542561930) 44.6 mmHg AV valve area (test code = 6614732937) 1.26 cm2 AV mean gradient (test code = 6398601854) 24.9 mmHg Radiology Study observation (narrative) (test code = 70746-3) GARRY (test code = GARRY) Table formatting [...] 2D, color flow Doppler and spectral Doppler. [facility] WITH [id number] 19:09:02* Test Item Value Reference Range Interpretation [...] 33.5 g/dL 31.6-35.1 RDW-SD (test code = 39629-7) 55.2 fL 39.0-49.9 H RDW-CV (test code = 788-0) 13.4 % 12.0-15.5 PLT (test code = 777-3) 142 166-358 L MPV (test code = 47196-6) 11.4 fL 9.5-12.9 NRBC/100 WBC (test code = 6817599210) 0.0 0.0-10.0 NRBC x10^3 (test code = 8308111914) See_Comment [Automated [employer]] The system which generated this result transmitted reference range: 10*3/?L. The reference range was not used to interpret this result as normal/abnormal. GRAN MAT (NEUT) % (test code = 770-8) 62.9 % IMM GRAN % (test code = 9608714992) 0.40 % LYMPH % (test code = 736-9) 27.3 % MONO % (test code = 5905-5) 9.0 % EOS % (test code = 713-8) 0.2 % BASO % (test code = 706-2) 0.2 % GRAN MAT x10^3(ANC) (test code = 9653958837) 3.30 10*3/uL 1.88-7.09 IMM GRAN x10^3 (test code = 3601244751) 0.00-0.06 LYMPH x10^3 (test code = 731-0) 1.43 10*3/uL 1.32-3.29 MONO x10^3 (test code = 742-7) 0.47 10*3/uL 0.33-0.92 EOS x10^3 (test code = 711-2) 0.03-0.39 L BASO x10^3 (test code = 704-7) 0.01-0.07 Lab Interpretation (test code = 99749-0) Abnormal [facility] [id number] 18:52:52* Test Item Value Reference Range Interpretation Comme nts TROPONIN I (test code = 9320137579) 0.160 ng/mL <=0.034 H GARRY (test code [...] of biotin. Lab Interpretation (test code = 53326-1) Abnormal [facility]. METABOLIC PANEL ([id number])[id number] 18:41:47* Test Item Value Reference Range Interpretation Comme nts NA (test code = 5424173670) 143 mmol/L 135-145 K (test code = 0853601526) 3.9 mmol/L 3.5-5.0 CL (test code = 3329308803) 116 mmol/L 98-108 H CO2 TOTAL (test code = 8495254001) 15 mmol/L 23-31 L AGAP (test code = 8685539882) 12 2-16 BUN (test code = 3588232727) 29 mg/dL 7-23 H GLUCOSE (test code = 8461878285) 104 mg/dL 70-110 CREATININE (test code = 2160-0) 1.90 mg/dL 0.50-1.04 H TOTAL BILI (test code = 8938445089) 0.5 mg/dL 0.1-1.1 CALCIUM (test code = 4031406850) 10.2 mg/dL 8.6-10.6 T PROTEIN (test code = 6240804975) 9.8 g/dL 6.3-8.2 H ALBUMIN (test code = 1002899941) 4.6 g/dL 3.5-5.0 ALK PHOS (test code = 1882789165) 103 U/L 34-122 ALTv (test code = 1742-6) 44 U/L 5-35 H AST(SGOT) (test code = 1758058727) 54 U/L 13-40 H eGFR (test code = 24173-4) 29.9 mL/min/1.73m2 Lab Interpretation (test cod e = 42213-1) [facility]normal [facility] [id number] 18:41:26* Test Item Value Reference Range Interpretation Comme nts LIPASE (test code = 2607173535) 123 U/L 0-220 Lab Interpretation (test cod e = 01900-8) Normal [facility] Venous Blood [id number] 18:29:21 * Test Item Value Reference Range Interpretation Comme nts PH (test code = 3113062532) 7.25 7.32-7.42 L PCO2 BEBA (test code = 6719542713) 40 41-51 L PO2 BEBA (test code = 9273095555) 27 25-40 HCO3 BEBA (test code = 7200429271) 17 24-28 L AC VBE(BEAKER) (test code = 5804767153) -9.3 mEq/L Lab Interpretation (test cod e = 01607-5) [facility]normal [facility] 1 [id number] 18:03:51HISTORY: Cough and SOB. TECHNIQUE: Portable AP [...] findings could be secondary to viral infection.[facility] HospitalCULTNIALL, [id number] 08:50:21SPECIMEN NUMBER: [id number] CULTURE, URINE SPECIMEN NUMBER: [id number] SPECIMEN COMMENT: URINE SOURCE: URINE REPORT STATUS: FINAL FINAL REPORT: 05/11/2023 10-50,000 CFU/ML UROGENITAL KARLA PRESENT NO COMMON PATHOGENSCULTURE, [id number] 00:00:00* Test Item Value Reference Range Interpretation Comme nts CULTURE, URINE (test code = 41382) SPECIMEN NUMBER: [id number] Delfino SarmientoLTNIALL, [id number] 00:00:00* Test Item Value Reference Range Interpretation Comme nts CULTURE, URINE (test code = 56182) SPECIMEN NUMBER: [id number] Delfino OrtaCULTNIALL, [id number] 00:00:00* Test Item Value Reference Range Interpretation Comme nts CULTURE, URINE (test code = 62074) SPECIMEN NUMBER: [id number] Delfino OrtaCULTNIALL, [id number] 00:00:00* Test Item Value Reference Range Interpretation Comme nts CULTURE, URINE (test code = 82974) SPECIMEN NUMBER: [id number] Delfino SarmientoLTNIALL, [id number] 00:00:00* Test Item Value Reference Range Interpretation Comme nts CULTURE, URINE (test code = 12976) SPECIMEN NUMBER: [id number] Delfino SarmientoLTNIALL, [id number] 00:00:00* Test Item Value Reference Range Interpretation Comme nts CULTURE, URINE (test code = 14863) SPECIMEN NUMBER: [id number] Delfino Cedeño [id number] 00:00:00* Test Item Value Reference Range Interpretation Comme nts CULTURE, URINE (test code = 11653) SPECIMEN NUMBER: [id number] Delfino Cedeño [id number] 00:00:00* Test Item Value Reference Range Interpretation Comme nts CULTURE, URINE (test code = 18271) SPECIMEN NUMBER: [id number] Delfino Cedeño [id number] 00:00:00* Test Item Value Reference Range Interpretation Comme nts CULTURE, URINE (test code = 38268) SPECIMEN NUMBER: [id number] Delfino Cedeño [id number] 00:00:00* Test Item Value Reference Range Interpretation Comme nts CULTURE, URINE (test code = 71977) SPECIMEN NUMBER: [id number] Delfino Cedeño, [id number] 00:00:00* Test Item Value Reference Range Interpretation Comme nts CULTURE, URINE (test code = 10450) SPECIMEN NUMBER: [id number] Delfino Cedeño, [id number] 00:00:00* Test Item Value Reference Range Interpretation Comme nts CULTURE, URINE (test code = 29628) SPECIMEN NUMBER: [id number] Delfino Cedeño, [id number] 00:00:00* Test Item Value Reference Range Interpretation Comme nts CULTURE, URINE (test code = 13685) SPECIMEN NUMBER: [id number] Delfino Cedeño, [id number] 00:00:00* Test Item Value Reference Range Interpretation Comme nts CULTURE, URINE (test code = 11966) SPECIMEN NUMBER: [id number] Delfino Cedeño, [id number] 00:00:00* Test Item Value Reference Range Interpretation Comme nts CULTURE, URINE (test code = 65049) SPECIMEN NUMBER: [id number] Delfino Cedeño, [id number] 00:00:00* Test Item Value Reference Range Interpretation Comme nts CULTURE, URINE (test code = 25029) SPECIMEN NUMBER: [id number] Delfino OrtaCULTURE, [id number] 00:00:00* Test Item Value Reference Range Interpretation Comme nts CULTURE, URINE (test code = 11941) SPECIMEN NUMBER: [id number] Delfino OrtaVAGINAL PATHOGENS DNA [id number] 14:05:30* Test Item Value Reference Range Interpretation Comme nts DIANNA SPECIES (test code = 17637) NEGATIVE NEGATIVE G. VAGINALIS (test code = 39637) NEGATIVE NEGATIVE T. VAGINALIS (test code = 51459) NEGATIVE NEGATIVE Note: The [facility] VPIII Microbial Identification Testis a DNA probe test intended for use in the detectionand identification of Dianna species, Gardnerellavaginalis and Trichomonas vaginalis nucleic acid. CT/NG, NAAT, [id number] 12:17:23* Test Item Value Reference Range Interpretation Comme nts CHLAMYDIA, NAAT, URINE (test code = 91295) NEGATIVE NEGATIVE Testing is perfo rmed with Epifanio JOSE 6800/8800 systems usingreal-time polymerase chain reaction (PCR) method. A negative result does not exclude low level infection, specimensampling error, or collection error. GONORRHEA, NAAT, URINE (test code = 30009) NEGATIVE NEGATIVE Testing is perfo rmed with Epifanio JOSE 6800/8800 systems usingreal-time polymerase chain reaction (PCR) method. A negative result does not exclude low level infection, specimensampling error, or collection error. UNLESS OTHERWISE INDICATED, ALL TESTING PERFORMED AT [facility] [address] [place] [address] BLEACH MAKER: ABBI SHORT M.D. CLIA NUMBER [id number] [facility] [place]. [id number] CT/NG, TMA, [id number] 00:00:00* Test Item Value Reference Range Interpretation Comme nts CHLAMYDIA, NAAT, URINE (test code = 14068) NEGATIVE GONORRHEA, NAAT, URINE (test code = 98917) NEGATIVE Delfino OrtaCT/NG, TMA, [id number] 00:00:00* Test Item Value Reference Range Interpretation Comme nts CHLAMYDIA, NAAT, URINE (test code = 09564) NEGATIVE GONORRHEA, NAAT, URINE (test code = 96581) NEGATIVE Delfino Endy AustinVAGINAL PATHOGENS DNA [id number] 00:00:00* Test Item Value Reference Range Interpretation Comme nts DIANNA SPECIES (test code = ) NEGATIVE G. VAGINALIS (test code = 69123) NEGATIVE T. VAGINALIS (test code = 41006) NEGATIVE Delfino F AustinCT/NG, TMA, [id number] 00:00:00* Test Item Value Reference Range Interpretation Comme nts CHLAMYDIA, NAAT, URINE (test code = 20677) NEGATIVE GONORRHEA, NAAT, URINE (test code = 44267) NEGATIVE Delfino F AustinVAGINAL PATHOGENS DNA [id number] 00:00:00* Test Item Value Reference Range Interpretation Comme nts DIANNA SPECIES (test code = ) NEGATIVE G. VAGINALIS (test code = 51963) NEGATIVE T. VAGINALIS (test code = 45369) NEGATIVE Delfino F AustinCT/NG, TMA, [id number] 00:00:00* Test Item Value Reference Range Interpretation Comme nts CHLAMYDIA, NAAT, URINE (test code = 02520) NEGATIVE GONORRHEA, NAAT, URINE (test code = 00012) NEGATIVE Delfino F AustinVAGINAL PATHOGENS DNA [id number] 00:00:00* Test Item Value Reference Range Interpretation Comme nts DIANNA SPECIES (test code = ) NEGATIVE G. VAGINALIS (test code = 89687) NEGATIVE T. VAGINALIS (test code = 56169) NEGATIVE Delfino Schumacher AustinCT/NG, TMA, [id number] 00:00:00* Test Item Value Reference Range Interpretation Comme nts CHLAMYDIA, NAAT, URINE (test code = 96784) NEGATIVE GONORRHEA, NAAT, URINE (test code = 99124) NEGATIVE Delfino F AustinVAGINAL PATHOGENS DNA [id number] 00:00:00* Test Item Value Reference Range Interpretation Comme nts DIANNA SPECIES (test code = 50379) NEGATIVE G. VAGINALIS (test code = 92287) NEGATIVE T. VAGINALIS (test code = 51225) NEGATIVE Delfino F AustinCT/NG, TMA, [id number] 00:00:00* Test Item Value Reference Range Interpretation Comme nts CHLAMYDIA, NAAT, URINE (test code = 58802) NEGATIVE GONORRHEA, NAAT, URINE (test code = 43082) NEGATIVE Delfino Endy AustinVAGINAL PATHOGENS DNA [id number] 00:00:00* Test Item Value Reference Range Interpretation Comme nts DIANNA SPECIES (test code = ) NEGATIVE G. VAGINALIS (test code = 24242) NEGATIVE T. VAGINALIS (test code = 34607) NEGATIVE Delfino F AustinCT/NG, TMA, [id number] 00:00:00* Test Item Value Reference Range Interpretation Comme nts CHLAMYDIA, NAAT, URINE (test code = 02212) NEGATIVE GONORRHEA, NAAT, URINE (test code = 79141) NEGATIVE Delfino F AustinVAGINAL PATHOGENS DNA [id number] 00:00:00* Test Item Value Reference Range Interpretation Comme nts DIANNA SPECIES (test code = ) NEGATIVE G. VAGINALIS (test code = 51434) NEGATIVE T. VAGINALIS (test code = 55555) NEGATIVE Delfino F AustinCT/NG, TMA, [id number] 00:00:00* Test Item Value Reference Range Interpretation Comme nts CHLAMYDIA, NAAT, URINE (test code = 84679) NEGATIVE GONORRHEA, NAAT, URINE (test code = 66422) NEGATIVE Delfino Schumacher AustinVAGINAL PATHOGENS DNA [id number] 00:00:00* Test Item Value Reference Range Interpretation Comme nts DIANNA SPECIES (test code = ) NEGATIVE G. VAGINALIS (test code = 47330) NEGATIVE T. VAGINALIS (test code = 28304) NEGATIVE Delfino Schumacher AustinCT/NG, TMA, [id number] 00:00:00* Test Item Value Reference Range Interpretation Comme nts CHLAMYDIA, NAAT, URINE (test code = 21187) NEGATIVE GONORRHEA, NAAT, URINE (test code = 94437) NEGATIVE Delfino F AustinVAGINAL PATHOGENS DNA [id number] 00:00:00* Test Item Value Reference Range Interpretation Comme nts DIANNA SPECIES (test code = 29036) NEGATIVE G. VAGINALIS (test code = 30784) NEGATIVE T. VAGINALIS (test code = 89316) NEGATIVE Delfino F AustinCT/NG, TMA, [id number] 00:00:00* Test Item Value Reference Range Interpretation Comme nts CHLAMYDIA, NAAT, URINE (test code = 19097) NEGATIVE GONORRHEA, NAAT, URINE (test code = 77458) NEGATIVE Delfino F AustinVAGINAL PATHOGENS DNA [id number] 00:00:00* Test Item Value Reference Range Interpretation Comme nts DIANNA SPECIES (test code = ) NEGATIVE G. VAGINALIS (test code = 16619) NEGATIVE T. VAGINALIS (test code = 68506) NEGATIVE Delfino F AustinCT/NG, TMA, [id number] 00:00:00* Test Item Value Reference Range Interpretation Comme nts CHLAMYDIA, NAAT, URINE (test code = 49839) NEGATIVE GONORRHEA, NAAT, URINE (test code = 24170) NEGATIVE Delfino F AustinVAGINAL PATHOGENS DNA [id number] 00:00:00* Test Item Value Reference Range Interpretation Comme nts DIANNA SPECIES (test code = ) NEGATIVE G. VAGINALIS (test code = 23278) NEGATIVE T. VAGINALIS (test code = 60557) NEGATIVE Delfino F AustinCT/NG, TMA, [id number] 00:00:00* Test Item Value Reference Range Interpretation Comme nts CHLAMYDIA, NAAT, URINE (test code = 15536) NEGATIVE GONORRHEA, NAAT, URINE (test code = 34977) NEGATIVE Delfino F AustinVAGINAL PATHOGENS DNA [id number] 00:00:00* Test Item Value Reference Range Interpretation Comme nts DIANNA SPECIES (test code = ) NEGATIVE G. VAGINALIS (test code = 51608) NEGATIVE T. VAGINALIS (test code = 72328) NEGATIVE Delfino F AustinCT/NG, TMA, [id number] 00:00:00* Test Item Value Reference Range Interpretation Comme nts CHLAMYDIA, NAAT, URINE (test code = 05377) NEGATIVE GONORRHEA, NAAT, URINE (test code = 31534) NEGATIVE Delfino F AustinVAGINAL PATHOGENS DNA [id number] 00:00:00* Test Item Value Reference Range Interpretation Comme nts DIANNA SPECIES (test code = 53037) NEGATIVE G. VAGINALIS (test code = 28624) NEGATIVE T. VAGINALIS (test code = 33618) NEGATIVE Delfino F AustinCT/NG, TMA, [id number] 00:00:00* Test Item Value Reference Range Interpretation Comme nts CHLAMYDIA, NAAT, URINE (test code = 55544) NEGATIVE GONORRHEA, NAAT, URINE (test code = 97315) NEGATIVE Delfino F AustinVAGINAL PATHOGENS DNA [id number] 00:00:00* Test Item Value Reference Range Interpretation Comme nts DIANNA SPECIES (test code = ) NEGATIVE G. VAGINALIS (test code = 95098) NEGATIVE T. VAGINALIS (test code = 69148) NEGATIVE Delfino F AustinCT/NG, TMA, [id number] 00:00:00* Test Item Value Reference Range Interpretation Comme nts CHLAMYDIA, NAAT, URINE (test code = 99971) NEGATIVE GONORRHEA, NAAT, URINE (test code = 16722) NEGATIVE Delfino F AustinVAGINAL PATHOGENS DNA [id number] 00:00:00* Test Item Value Reference Range Interpretation Comme nts DIANNA SPECIES (test code = ) NEGATIVE G. VAGINALIS (test code = 26450) NEGATIVE T. VAGINALIS (test code = 93364) NEGATIVE Delfino F AustinCT/NG, TMA, [id number] 00:00:00* Test Item Value Reference Range Interpretation Comme nts CHLAMYDIA, NAAT, URINE (test code = 86123) NEGATIVE GONORRHEA, NAAT, URINE (test code = 95570) NEGATIVE Delfino F AustinVAGINAL PATHOGENS DNA [id number] 00:00:00* Test Item Value Reference Range Interpretation Comme nts DIANNA SPECIES (test code = ) NEGATIVE G. VAGINALIS (test code = 95850) NEGATIVE T. VAGINALIS (test code = 26933) NEGATIVE Delfino F AustinVAGINAL PATHOGENS DNA [id number] 00:00:00* Test Item Value Reference Range Interpretation Comme nts DIANNA SPECIES (test code = 43152) NEGATIVE G. VAGINALIS (test code = 27424) NEGATIVE T. VAGINALIS (test code = 04932) NEGATIVE Delfino F AustinCT/NG, TMA, [id number] 00:00:00* Test Item Value Reference Range Interpretation Comme nts CHLAMYDIA, NAAT, URINE (test code = 55998) NEGATIVE GONORRHEA, NAAT, URINE (test code = 26410) NEGATIVE Delfino F AustinVAGINAL PATHOGENS DNA [id number] 00:00:00* Test Item Value Reference Range Interpretation Comme nts DIANNA SPECIES (test code = 53464) NEGATIVE G. VAGINALIS (test code = 03887) NEGATIVE T. VAGINALIS (test code = 45761) NEGATIVE Delfino Schumacher [id number] 20:25:19* Test Item Value Reference Range Interpretation Comme nts CALCIUM (test code = 2209) 10.6 MG/DL 8.5-10.5 H [id number] 20:25:10* Test Item Value Reference Range Interpretation Comme nts PHOSPHORUS (test code = 2227) 2.9 MG/DL 2.5-4.5 UNLESS OTHERWISE INDICATED, ALL TESTING PERFORMED AT [facility] [address] [place] [address] BLEACH MAKER: ABBI SHORT M.D. CLIA NUMBER [id number] [facility] [place]. [id number] CALCIUM, [id number] 09:33:19* Test Item Value Reference Range Interpretation Comme nts CALCIUM, IONIZED (test code = 76908) 5.50 MG/DL 4.70-5.90 INTACT [id number] 09:28:17* Test Item Value Reference Range Interpretation Comme nts INTACT PTH (test code = 5005) 60 PG/ML 15-65 [id number] 00:00:00* Test Item Value Reference Range Interpretation Comme nts CALCIUM (test code = 2209) 10.6 MG/DL Delfino Schumacher [id number] 00:00:00* Test Item Value Reference Range Interpretation Comme nts CALCIUM (test code = 2209) 10.6 MG/DL Delfino Schumacher [id number] 00:00:00* Test Item Value Reference Range Interpretation Comme nts PHOSPHORUS (test code = 2227) 2.9 MG/DL Delfino Schumacher AustinINTACT [id number] 00:00:00* Test Item Value Reference Range Interpretation Comme nts INTACT PTH (test code = 5005) 60 PG/ML Delfino Schumacher AustinCALCIUM, [id number] 00:00:00* Test Item Value Reference Range Interpretation Comme nts CALCIUM, IONIZED (test code = 66471) 5.50 MG/DL Delfino Schumacher [id number] 00:00:00* Test Item Value Reference Range Interpretation Comme nts CALCIUM (test code = 2209) 10.6 MG/DL Delfino Schumacher [id number] 00:00:00* Test Item Value Reference Range Interpretation Comme nts PHOSPHORUS (test code = 2227) 2.9 MG/DL Delfino Schumacher [id number] 00:00:00* Test Item Value Reference Range Interpretation Comme nts PHOSPHORUS (test code = 2227) 2.9 MG/DL Delfino Schumacher AustinINTACT [id number] 00:00:00* Test Item Value Reference Range Interpretation Comme nts INTACT PTH (test code = 5005) 60 PG/ML Delfino OrtaCALCIUM, [id number] 00:00:00* Test Item Value Reference Range Interpretation Comme nts CALCIUM, IONIZED (test code = 85328) 5.50 MG/DL Delfino Schumacher [id number] 00:00:00* Test Item Value Reference Range Interpretation Comme nts CALCIUM (test code = 2209) 10.6 MG/DL Delfino Schumacher [id number] 00:00:00* Test Item Value Reference Range Interpretation Comme nts PHOSPHORUS (test code = 2227) 2.9 MG/DL Delfino Schumacher AustinINTACT [id number] 00:00:00* Test Item Value Reference Range Interpretation Comme nts INTACT PTH (test code = 5005) 60 PG/ML Delfino Schumacher AustinCALCIUM, [id number] 00:00:00* Test Item Value Reference Range Interpretation Comme nts CALCIUM, IONIZED (test code = 55935) 5.50 MG/DL Delfino Schumacher [id number] 00:00:00* Test Item Value Reference Range Interpretation Comme nts CALCIUM (test code = 2209) 10.6 MG/DL Delfino Schumacher [id number] 00:00:00* Test Item Value Reference Range Interpretation Comme nts PHOSPHORUS (test code = 2227) 2.9 MG/DL Delfino Schumacher AustinINTACT [id number] 00:00:00* Test Item Value Reference Range Interpretation Comme nts INTACT PTH (test code = 5005) 60 PG/ML Delfino Schumacher AustinCALCIUM, [id number] 00:00:00* Test Item Value Reference Range Interpretation Comme nts CALCIUM, IONIZED (test code = 12767) 5.50 MG/DL Delfino Schumacher [id number] 00:00:00* Test Item Value Reference Range Interpretation Comme nts CALCIUM (test code = 2209) 10.6 MG/DL Delfino Schumacher [id number] 00:00:00* Test Item Value Reference Range Interpretation Comme nts PHOSPHORUS (test code = 2227) 2.9 MG/DL Delfino Schumacher AustinINTACT [id number] 00:00:00* Test Item Value Reference Range Interpretation Comme nts INTACT PTH (test code = 5005) 60 PG/ML Delfino OrtaCALCIUM, [id number] 00:00:00* Test Item Value Reference Range Interpretation Comme nts CALCIUM, IONIZED (test code = 84760) 5.50 MG/DL Delfino Schumacher [id number] 00:00:00* Test Item Value Reference Range Interpretation Comme nts CALCIUM (test code = 2209) 10.6 MG/DL Delfino Schumacher [id number] 00:00:00* Test Item Value Reference Range Interpretation Comme nts PHOSPHORUS (test code = 2227) 2.9 MG/DL Delfino Schumacher AustinINTACT [id number] 00:00:00* Test Item Value Reference Range Interpretation Comme nts INTACT PTH (test code = 5005) 60 PG/ML Delfino OrtaCALCIUM, [id number] 00:00:00* Test Item Value Reference Range Interpretation Comme nts CALCIUM, IONIZED (test code = 20238) 5.50 MG/DL Delfino Schumacher [id number] 00:00:00* Test Item Value Reference Range Interpretation Comme nts CALCIUM (test code = 2209) 10.6 MG/DL Delfino Schumacher [id number] 00:00:00* Test Item Value Reference Range Interpretation Comme nts PHOSPHORUS (test code = 2227) 2.9 MG/DL Delfino Schumacher AustinINTACT [id number] 00:00:00* Test Item Value Reference Range Interpretation Comme nts INTACT PTH (test code = 5005) 60 PG/ML Delfino Schumacher AustinCALCIUM, [id number] 00:00:00* Test Item Value Reference Range Interpretation Comme nts CALCIUM, IONIZED (test code = 95562) 5.50 MG/DL Delfino Schumacher [id number] 00:00:00* Test Item Value Reference Range Interpretation Comme nts CALCIUM (test code = 2209) 10.6 MG/DL Delfino Schumacher SmfpymOFFHNHGYCJ9563-88-97 00:00:00* Test Item Value Reference Range Interpretation Comme nts PHOSPHORUS (test code = 2227) 2.9 MG/DL Delfino Schumacher AustinINTACT [id number] 00:00:00* Test Item Value Reference Range Interpretation Comme nts INTACT PTH (test code = 5005) 60 PG/ML Delfino Schumacher AustinCALCIUM, [id number] 00:00:00* Test Item Value Reference Range Interpretation Comme nts CALCIUM, IONIZED (test code = 98017) 5.50 MG/DL Delfino Schumacher [id number] 00:00:00* Test Item Value Reference Range Interpretation Comme nts CALCIUM (test code = 2209) 10.6 MG/DL Delfino Schumacher [id number] 00:00:00* Test Item Value Reference Range Interpretation Comme nts PHOSPHORUS (test code = 2227) 2.9 MG/DL Delfino Schumacher [place] [id number] 00:00:00* Test Item Value Reference Range Interpretation Comme nts INTACT PTH (test code = 5005) 60 PG/ML Delfino Schumacher [place], [id number] 00:00:00* Test Item Value Reference Range Interpretation Comme nts CALCIUM, IONIZED (test code = 08434) 5.50 MG/DL Delfino Schumacher [id number] 00:00:00* Test Item Value Reference Range Interpretation Comme nts CALCIUM (test code = 2209) 10.6 MG/DL Delfino Schumacher [id number] 00:00:00* Test Item Value Reference Range Interpretation Comme nts PHOSPHORUS (test code = 2227) 2.9 MG/DL Delfino Schumacher [place] [id number] 00:00:00* Test Item Value Reference Range Interpretation Comme nts INTACT PTH (test code = 5005) 60 PG/ML Delfino Schumacher [place], [id number] 00:00:00* Test Item Value Reference Range Interpretation Comme nts CALCIUM, IONIZED (test code = 66875) 5.50 MG/DL Delfino Schumacher [id number] 00:00:00* Test Item Value Reference Range Interpretation Comme nts CALCIUM (test code = 2209) 10.6 MG/DL Delfino Schumacher [id number] 00:00:00* Test Item Value Reference Range Interpretation Comme nts PHOSPHORUS (test code = 2227) 2.9 MG/DL Delfino Schumacher [place] [id number] 00:00:00* Test Item Value Reference Range Interpretation Comme nts INTACT PTH (test code = 5005) 60 PG/ML Delfino Schumacher [place], [id number] 00:00:00* Test Item Value Reference Range Interpretation Comme nts CALCIUM, IONIZED (test code = 34010) 5.50 MG/DL Delfino Schumacher [id number] 00:00:00* Test Item Value Reference Range Interpretation Comme nts CALCIUM (test code = 2209) 10.6 MG/DL Delfino Schumacher [id number] 00:00:00* Test Item Value Reference Range Interpretation Comme nts PHOSPHORUS (test code = 2227) 2.9 MG/DL Delfino Schumacher [place] [id number] 00:00:00* Test Item Value Reference Range Interpretation Comme nts INTACT PTH (test code = 5005) 60 PG/ML Delfino Schumacher AustinINTACT [id number] 00:00:00* Test Item Value Reference Range Interpretation Comme nts INTACT PTH (test code = 5005) 60 PG/ML Delfino Schumacher AustinCALCIUM, [id number] 00:00:00* Test Item Value Reference Range Interpretation Comme nts CALCIUM, IONIZED (test code = 77790) 5.50 MG/DL Delfino Schumacher [id number] 00:00:00* Test Item Value Reference Range Interpretation Comme nts CALCIUM (test code = 2209) 10.6 MG/DL Delfino Schumacher [id number] 00:00:00* Test Item Value Reference Range Interpretation Comme nts PHOSPHORUS (test code = 2227) 2.9 MG/DL Delfino Schumacher AustinINTACT [id number] 00:00:00* Test Item Value Reference Range Interpretation Comme nts INTACT PTH (test code = 5005) 60 PG/ML Delfino Schumacher AustinCALCIUM, [id number] 00:00:00* Test Item Value Reference Range Interpretation Comme nts CALCIUM, IONIZED (test code = 55869) 5.50 MG/DL Delfino Schumacher [id number] 00:00:00* Test Item Value Reference Range Interpretation Comme nts CALCIUM (test code = 2209) 10.6 MG/DL Delfino Schumacher [id number] 00:00:00* Test Item Value Reference Range Interpretation Comme nts PHOSPHORUS (test code = 2227) 2.9 MG/DL Delfino Schumacher AustinINTACT [id number] 00:00:00* Test Item Value Reference Range Interpretation Comme nts INTACT PTH (test code = 5005) 60 PG/ML Delfino Schumacher AustinCALCIUM, [id number] 00:00:00* Test Item Value Reference Range Interpretation Comme nts CALCIUM, IONIZED (test code = 53240) 5.50 MG/DL Delfino Schumacher AustinCALCIUM, [id number] 00:00:00* Test Item Value Reference Range Interpretation Comme nts CALCIUM, IONIZED (test code = 67250) 5.50 MG/DL Delfino Schumacher [id number] 00:00:00* Test Item Value Reference Range Interpretation Comme nts CALCIUM (test code = 2209) 10.6 MG/DL Delfino Schumacher [id number] 00:00:00* Test Item Value Reference Range Interpretation Comme nts PHOSPHORUS (test code = 2227) 2.9 MG/DL Delfino Schumacher AustinINTACT [id number] 00:00:00* Test Item Value Reference Range Interpretation Comme nts INTACT PTH (test code = 5005) 60 PG/ML Delfino Schumacher AustinCALCIUM, [id number] 00:00:00* Test Item Value Reference Range Interpretation Comme nts CALCIUM, IONIZED (test code = 62510) 5.50 MG/DL Delfino Schumacher [id number] 00:00:00* Test Item Value Reference Range Interpretation Comme nts CALCIUM (test code = 2209) 10.6 MG/DL Delfino [id number] 00:00:00* Test Item Value Reference Range Interpretation Comme nts PHOSPHORUS (test code = 2227) 2.9 MG/DL Delfino OrtaINTACT [id number] 00:00:00* Test Item Value Reference Range Interpretation Comme nts INTACT PTH (test code = 5005) 60 PG/ML Delfino OrtaCALCIUM, [id number] 00:00:00* Test Item Value Reference Range Interpretation Comme nts CALCIUM, IONIZED (test code = 35558) 5.50 MG/DL Delfino SarmientoLTNIALL, [id number] 09:25:56SPECIMEN NUMBER: [id number] CULTURE, URINE SPECIMEN NUMBER: [id number] SPECIMEN COMMENT: URINE SOURCE: URINE REPORT STATUS: FINAL FINAL REPORT: 03/09/2023 10-50,000 CFU/ML UROGENITAL KARLA PRESENT NO COMMON PATHOGENSCULTURE, [id number] 00:00:00* Test Item Value Reference Range Interpretation Comme nts CULTURE, URINE (test code = 67566) SPECIMEN NUMBER: [id number] Delfino OrtaCULTURE, [id number] 00:00:00* Test Item Value Reference Range Interpretation Comme nts CULTURE, URINE (test code = 06108) SPECIMEN NUMBER: [id number] Delfino OrtaCULTURE, [id number] 00:00:00* Test Item Value Reference Range Interpretation Comme nts CULTURE, URINE (test code = 81800) SPECIMEN NUMBER: [id number] Delfino OrtaCULTURE, [id number] 00:00:00* Test Item Value Reference Range Interpretation Comme nts CULTURE, URINE (test code = 86616) SPECIMEN NUMBER: [id number] Delfino OrtaCULTURE, [id number] 00:00:00* Test Item Value Reference Range Interpretation Comme nts CULTURE, URINE (test code = 66380) SPECIMEN NUMBER: [id number] Delfino OrtaCULTURE, [id number] 00:00:00* Test Item Value Reference Range Interpretation Comme nts CULTURE, URINE (test code = 03237) SPECIMEN NUMBER: [id number] Delfino Cedeño [id number] 00:00:00* Test Item Value Reference Range Interpretation Comme nts CULTURE, URINE (test code = 01700) SPECIMEN NUMBER: [id number] Delfino Cedeño [id number] 00:00:00* Test Item Value Reference Range Interpretation Comme nts CULTURE, URINE (test code = 08533) SPECIMEN NUMBER: [id number] Delfino Cedeño [id number] 00:00:00* Test Item Value Reference Range Interpretation Comme nts CULTURE, URINE (test code = 40679) SPECIMEN NUMBER: [id number] [id number] 00:00:00* Test Item Value Reference Range Interpretation Comme nts CULTURE, URINE (test code = 98677) SPECIMEN NUMBER: [id number] Delfino Cedeño [id number] 00:00:00* Test Item Value Reference Range Interpretation Comme nts CULTURE, URINE (test code = 62668) SPECIMEN NUMBER: [id number] Delfino Cedeño [id number] 00:00:00* Test Item Value Reference Range Interpretation Comme nts CULTURE, URINE (test code = 76531) SPECIMEN NUMBER: [id number] Delfino Cedeño [id number] 00:00:00* Test Item Value Reference Range Interpretation Comme nts CULTURE, URINE (test code = 80917) SPECIMEN NUMBER: [id number] Delfino Cedeño [id number] 00:00:00* Test Item Value Reference Range Interpretation Comme nts CULTURE, URINE (test code = 29345) SPECIMEN NUMBER: [id number] Delfino Cedeño [id number] 00:00:00* Test Item Value Reference Range Interpretation Comme nts CULTURE, URINE (test code = 32293) SPECIMEN NUMBER: [id number] Delfino Cedeño [id number] 00:00:00* Test Item Value Reference Range Interpretation Comme nts CULTURE, URINE (test code = 74405) SPECIMEN NUMBER: [id number] Delfino Cedeño [id number] 00:00:00* Test Item Value Reference Range Interpretation Comme nts CULTURE, URINE (test code = 78974) SPECIMEN NUMBER: [id number] Delfino OrtaCOMPREHENSIVE METABOLIC [id number] 04:45:25* Test Item Value Reference Range Interpretation Comme nts GLUCOSE (test code = 2217) 87 MG/DL 70-99 BUN (test code = 220) 32 MG/DL 8-23 H CREATININE (test code = 221) 1.39 MG/DL 0.60-1.30 H eGFR (2020 CKD-EPI) (test co de = 82434) 43 ML/MIN/1.73 >60 L CALC BUN/CREAT (test code = 2235) 23 RATIO 6-28 SODIUM (test code = 223) 141 MEQ/L 133-146 POTASSIUM (test code = [...] code = 2219) 32 U/L 5-40 LIPID [id number] 04:45:25* Test Item Value Reference Range Interpretation [...] SPECIMENS. FOR MOREINFORMATION, SEE CLIENT ANNOUNCEMENT AT [email or web address] RISK RATIO LDL/HDL (test code = 2238) 0.58 RATIO <3.22 UNLESS OTHERW ISE INDICATED, ALL TESTING PERFORMED AT [facility] [address] [place] [id number] BLEACH MAKER: ABBI SHORT M.D. CLIA NUMBER [id number] [facility]. [id number] LIPID [id number] 00:00:00* Test Item Value Reference Range Interpretation Comme nts CHOLESTEROL (test code = 2210) 187 MG/DL TRIGLYCERIDES (test code = 2232) 58 MG/DL HDL CHOLESTEROL (test code = 2220) 110 MG/DL CALC LDL CHOL (test code = 2237) 64 MG/DL RISK RATIO LDL/HDL (test cod e = 2238) 0.58 RATIO Delfino Schumacher YouLIPID [id number] 00:00:00* Test Item Value Reference Range Interpretation Comme nts CHOLESTEROL (test code = 2210) 187 MG/DL TRIGLYCERIDES (test code = 2232) 58 MG/DL HDL CHOLESTEROL (test code = 2220) 110 MG/DL CALC LDL CHOL (test code = 2237) 64 MG/DL RISK RATIO LDL/HDL (test cod e = 2238) 0.58 RATIO Delfino OrtaCOMPREHENSIVE METABOLIC [id number] 00:00:00* Test Item Value Reference Range Interpretation Comme nts GLUCOSE (test code = 2217) 87 MG/DL BUN (test code = 2208) 32 MG/DL CREATININE (test code = 2214) 1.39 MG/DL eGFR (2020 CKD-EPI) (test co de = ) 43 ML/MIN/1.73 CALC BUN/CREAT (test code = [...] code = 2219) 32 U/L Delfino Schumacher WimaumaLIPID [id number] 00:00:00* Test Item Value Reference Range Interpretation Comme nts CHOLESTEROL (test code = 2210) 187 MG/DL TRIGLYCERIDES (test code = 2232) 58 MG/DL HDL CHOLESTEROL (test code = 2220) 110 MG/DL CALC LDL CHOL (test code = 2237) 64 MG/DL RISK RATIO LDL/HDL (test cod e = 2238) 0.58 RATIO Delfino OrtaCOMPREHENSIVE METABOLIC [id number] 00:00:00* Test Item Value Reference Range Interpretation Comme nts GLUCOSE (test code = 2217) 87 MG/DL BUN (test code = 2208) 32 MG/DL CREATININE (test code = 2214) 1.39 MG/DL eGFR (2020 CKD-EPI) (test co de = 19878) 43 ML/MIN/1.73 CALC BUN/CREAT (test code = [...] = 2219) 32 U/L Delfino F AustinLIPID [id number] 00:00:00* Test Item Value Reference Range Interpretation Comme nts CHOLESTEROL (test code = 2210) 187 MG/DL TRIGLYCERIDES (test code = 2232) 58 MG/DL HDL CHOLESTEROL (test code = 2220) 110 MG/DL CALC LDL CHOL (test code = 2237) 64 MG/DL RISK RATIO LDL/HDL (test cod e = 2238) 0.58 RATIO Delfino Schumacher AustinCOMPREHENSIVE METABOLIC [id number] 00:00:00* Test Item Value Reference Range Interpretation Comme nts GLUCOSE (test code = 2217) 87 MG/DL BUN (test code = 2208) 32 MG/DL CREATININE (test code = 2214) 1.39 MG/DL eGFR (2020 CKD-EPI) (test co de = 49362) 43 ML/MIN/1.73 CALC BUN/CREAT (test code = [...] = 2219) 32 U/L Delfino Schumacher AustinLIPID [id number] 00:00:00* Test Item Value Reference Range Interpretation Comme nts CHOLESTEROL (test code = 2210) 187 MG/DL TRIGLYCERIDES (test code = 2232) 58 MG/DL HDL CHOLESTEROL (test code = 2220) 110 MG/DL CALC LDL CHOL (test code = 2237) 64 MG/DL RISK RATIO LDL/HDL (test cod e = 2238) 0.58 RATIO Delfino Schumacher AustinCOMPREHENSIVE METABOLIC [id number] 00:00:00* Test Item Value Reference Range Interpretation Comme nts GLUCOSE (test code = 2217) 87 MG/DL BUN (test code = 2208) 32 MG/DL CREATININE (test code = 2214) 1.39 MG/DL eGFR (2020 CKD-EPI) (test co de = 87304) 43 ML/MIN/1.73 CALC BUN/CREAT (test code = [...] = 2219) 32 U/L Delfino Schumacher AustinLIPID [id number] 00:00:00* Test Item Value Reference Range Interpretation Comme nts CHOLESTEROL (test code = 2210) 187 MG/DL TRIGLYCERIDES (test code = 2232) 58 MG/DL HDL CHOLESTEROL (test code = 2220) 110 MG/DL CALC LDL CHOL (test code = 2237) 64 MG/DL RISK RATIO LDL/HDL (test cod e = 2238) 0.58 RATIO Delfino Schumacher YouCOMPREHENSIVE METABOLIC [id number] 00:00:00* Test Item Value Reference Range Interpretation Comme nts GLUCOSE (test code = 2217) 87 MG/DL BUN (test code = 2208) 32 MG/DL CREATININE (test code = 2214) 1.39 MG/DL eGFR (2020 CKD-EPI) (test co de = 82435) 43 ML/MIN/1.73 CALC BUN/CREAT (test code = [...] code = 2219) 32 U/L Delfino OrtaLIPID [id number] 00:00:00* Test Item Value Reference Range Interpretation Comme nts CHOLESTEROL (test code = 2210) 187 MG/DL TRIGLYCERIDES (test code = 2232) 58 MG/DL HDL CHOLESTEROL (test code = 2220) 110 MG/DL CALC LDL CHOL (test code = 2237) 64 MG/DL RISK RATIO LDL/HDL (test cod e = 2238) 0.58 RATIO Delfino OrtaCOMPREHENSIVE METABOLIC [id number] 00:00:00* Test Item Value Reference Range Interpretation Comme nts GLUCOSE (test code = 2217) 87 MG/DL BUN (test code = 2208) 32 MG/DL CREATININE (test code = 2214) 1.39 MG/DL eGFR (2020 CKD-EPI) (test co de = 05984) 43 ML/MIN/1.73 CALC BUN/CREAT (test code = [...] code = 2219) 32 U/L Delfino OrtaLIPID [id number] 00:00:00* Test Item Value Reference Range Interpretation Comme nts CHOLESTEROL (test code = 2210) 187 MG/DL TRIGLYCERIDES (test code = 2232) 58 MG/DL HDL CHOLESTEROL (test code = 2220) 110 MG/DL CALC LDL CHOL (test code = 2237) 64 MG/DL RISK RATIO LDL/HDL (test cod e = 2238) 0.58 RATIO Delfino OrtaCOMPREHENSIVE METABOLIC [id number] 00:00:00* Test Item Value Reference Range Interpretation Comme nts GLUCOSE (test code = 2217) 87 MG/DL BUN (test code = 2208) 32 MG/DL CREATININE (test code = 2214) 1.39 MG/DL eGFR (2020 CKD-EPI) (test co de = 09764) 43 ML/MIN/1.73 CALC BUN/CREAT (test code = [...] code = 2219) 32 U/L Delfino OrtaLIPID [id number] 00:00:00* Test Item Value Reference Range Interpretation Comme nts CHOLESTEROL (test code = 2210) 187 MG/DL TRIGLYCERIDES (test code = 2232) 58 MG/DL HDL CHOLESTEROL (test code = 2220) 110 MG/DL CALC LDL CHOL (test code = 2237) 64 MG/DL RISK RATIO LDL/HDL (test cod e = 2238) 0.58 RATIO Delfino OrtaCOMPREHENSIVE METABOLIC [id number] 00:00:00* Test Item Value Reference Range Interpretation Comme nts GLUCOSE (test code = 2217) 87 MG/DL BUN (test code = 2208) 32 MG/DL CREATININE (test code = 2214) 1.39 MG/DL eGFR (2020 CKD-EPI) (test co de = 90389) 43 ML/MIN/1.73 CALC BUN/CREAT (test code = [...] = 2219) 32 U/L Delfino Schumacher AustinLIPID [id number] 00:00:00* Test Item Value Reference Range Interpretation Comme nts CHOLESTEROL (test code = 2210) 187 MG/DL TRIGLYCERIDES (test code = 2232) 58 MG/DL HDL CHOLESTEROL (test code = 2220) 110 MG/DL CALC LDL CHOL (test code = 2237) 64 MG/DL RISK RATIO LDL/HDL (test cod e = 2238) 0.58 RATIO Delfino Schumacher AustinCOMPREHENSIVE METABOLIC [id number] 00:00:00* Test Item Value Reference Range Interpretation Comme nts GLUCOSE (test code = 2217) 87 MG/DL BUN (test code = 2208) 32 MG/DL CREATININE (test code = 2214) 1.39 MG/DL eGFR (2020 CKD-EPI) (test co de = 24585) 43 ML/MIN/1.73 CALC BUN/CREAT (test code = [...] code = 2219) 32 U/L Delfino Schumacher WimaumaLIPID [id number] 00:00:00* Test Item Value Reference Range Interpretation Comme nts CHOLESTEROL (test code = 2210) 187 MG/DL TRIGLYCERIDES (test code = 2232) 58 MG/DL HDL CHOLESTEROL (test code = 2220) 110 MG/DL CALC LDL CHOL (test code = 2237) 64 MG/DL RISK RATIO LDL/HDL (test cod e = 2238) 0.58 RATIO Delfino Schumacher YouCOMPREHENSIVE METABOLIC [id number] 00:00:00* Test Item Value Reference Range Interpretation Comme nts GLUCOSE (test code = 2217) 87 MG/DL BUN (test code = 2208) 32 MG/DL CREATININE (test code = 2214) 1.39 MG/DL eGFR (2020 CKD-EPI) (test co de = 09318) 43 ML/MIN/1.73 CALC BUN/CREAT (test code = [...] = 2219) 32 U/L Delfino Schumacher AustinLIPID [id number] 00:00:00* Test Item Value Reference Range Interpretation Comme nts CHOLESTEROL (test code = 2210) 187 MG/DL TRIGLYCERIDES (test code = 2232) 58 MG/DL HDL CHOLESTEROL (test code = 2220) 110 MG/DL CALC LDL CHOL (test code = 2237) 64 MG/DL RISK RATIO LDL/HDL (test cod e = 2238) 0.58 RATIO Delfino OrtaCOMPREHENSIVE METABOLIC [id number] 00:00:00* Test Item Value Reference Range Interpretation Comme nts GLUCOSE (test code = 2217) 87 MG/DL BUN (test code = 2208) 32 MG/DL CREATININE (test code = 2214) 1.39 MG/DL eGFR (2020 CKD-EPI) (test co de = 79323) 43 ML/MIN/1.73 CALC BUN/CREAT (test code = [...] = 2219) 32 U/L Delfino Schumacher AustinLIPID [id number] 00:00:00* Test Item Value Reference Range Interpretation Comme nts CHOLESTEROL (test code = 2210) 187 MG/DL TRIGLYCERIDES (test code = 2232) 58 MG/DL HDL CHOLESTEROL (test code = 2220) 110 MG/DL CALC LDL CHOL (test code = 2237) 64 MG/DL RISK RATIO LDL/HDL (test cod e = 2238) 0.58 RATIO Delfino OrtaCOMPREHENSIVE METABOLIC [id number] 00:00:00* Test Item Value Reference Range Interpretation Comme nts GLUCOSE (test code = 2217) 87 MG/DL BUN (test code = 2208) 32 MG/DL CREATININE (test code = 2214) 1.39 MG/DL eGFR (2020 CKD-EPI) (test co de = 08872) 43 ML/MIN/1.73 CALC BUN/CREAT (test code = [...] = 2219) 32 U/L Delfino Schumacher AustinLIPID [id number] 00:00:00* Test Item Value Reference Range Interpretation Comme nts CHOLESTEROL (test code = 2210) 187 MG/DL TRIGLYCERIDES (test code = 2232) 58 MG/DL HDL CHOLESTEROL (test code = 2220) 110 MG/DL CALC LDL CHOL (test code = 2237) 64 MG/DL RISK RATIO LDL/HDL (test cod e = 2238) 0.58 RATIO Delfino OrtaCOMPREHENSIVE METABOLIC [id number] 00:00:00* Test Item Value Reference Range Interpretation Comme nts GLUCOSE (test code = 2217) 87 MG/DL BUN (test code = 2208) 32 MG/DL CREATININE (test code = 2214) 1.39 MG/DL eGFR (2020 CKD-EPI) (test co de = 27232) 43 ML/MIN/1.73 CALC BUN/CREAT (test code = [...] (test code = 2219) 32 U/L Delfino Endy YouLIPID [id number] 00:00:00* Test Item Value Reference Range Interpretation Comme nts CHOLESTEROL (test code = 2210) 187 MG/DL TRIGLYCERIDES (test code = 2232) 58 MG/DL HDL CHOLESTEROL (test code = 2220) 110 MG/DL CALC LDL CHOL (test code = 2237) 64 MG/DL RISK RATIO LDL/HDL (test cod e = 2238) 0.58 RATIO Delfino Schumacher YouCOMPREHENSIVE METABOLIC [id number] 00:00:00* Test Item Value Reference Range Interpretation Comme nts GLUCOSE (test code = 2217) 87 MG/DL BUN (test code = 2208) 32 MG/DL CREATININE (test code = 2214) 1.39 MG/DL eGFR (2020 CKD-EPI) (test co de = 95810) 43 ML/MIN/1.73 CALC BUN/CREAT (test code = [...] = 2219) 32 U/L Delfino OrtaCOMPREHENSIVE METABOLIC [id number] 00:00:00* Test Item Value Reference Range Interpretation Comme nts GLUCOSE (test code = 2217) 87 MG/DL BUN (test code = 2208) 32 MG/DL CREATININE (test code = 2214) 1.39 MG/DL eGFR (2020 CKD-EPI) (test co de = 49981) 43 ML/MIN/1.73 CALC BUN/CREAT (test code = [...] = 2219) 32 U/L Delfino Schumacher AustinLIPID [id number] 00:00:00* Test Item Value Reference Range Interpretation Comme nts CHOLESTEROL (test code = 2210) 187 MG/DL TRIGLYCERIDES (test code = 2232) 58 MG/DL HDL CHOLESTEROL (test code = 2220) 110 MG/DL CALC LDL CHOL (test code = 2237) 64 MG/DL RISK RATIO LDL/HDL (test cod e = 2238) 0.58 RATIO Delfino Schumacher AustinCOMPREHENSIVE METABOLIC [id number] 00:00:00* Test Item Value Reference Range Interpretation Comme nts GLUCOSE (test code = 2217) 87 MG/DL BUN (test code = 2208) 32 MG/DL CREATININE (test code = 2214) 1.39 MG/DL eGFR (2020 CKD-EPI) (test co de = 29947) 43 ML/MIN/1.73 CALC BUN/CREAT (test code = [...] = 2219) 32 U/L Delfino Schumacher AustinLIPID [id number] 00:00:00* Test Item Value Reference Range Interpretation Comme nts CHOLESTEROL (test code = 2210) 187 MG/DL TRIGLYCERIDES (test code = 2232) 58 MG/DL HDL CHOLESTEROL (test code = 2220) 110 MG/DL CALC LDL CHOL (test code = 2237) 64 MG/DL RISK RATIO LDL/HDL (test cod e = 2238) 0.58 RATIO Delfino Schumacher YouCOMPREHENSIVE METABOLIC [id number] 00:00:00* Test Item Value Reference Range Interpretation Comme nts GLUCOSE (test code = 2217) 87 MG/DL BUN (test code = 2208) 32 MG/DL CREATININE (test code = 2214) 1.39 MG/DL eGFR (2020 CKD-EPI) (test co de = 75511) 43 ML/MIN/1.73 CALC BUN/CREAT (test code = [...] code = 2219) 32 U/L Delfino OrtaLIPID [id number] 00:00:00* Test Item Value Reference Range Interpretation Comme nts CHOLESTEROL (test code = 2210) 183 MG/DL TRIGLYCERIDES (test code = 2232) 69 MG/DL HDL CHOLESTEROL (test code = 2220) 93 MG/DL CALC LDL CHOL (test code = 2237) 75 MG/DL RISK RATIO LDL/HDL (test cod e = 2238) 0.81 RATIO Delfino OrtaCOMPREHENSIVE METABOLIC [id number] 00:00:00* Test Item Value Reference Range Interpretation Comme nts GLUCOSE (test code = 2217) 74 MG/DL BUN (test code = 2208) 16 MG/DL CREATININE (test code = 2214) 0.96 MG/DL eGFR (2020 CKD-EPI) (test co de = 68911) 69 ML/MIN/1.73 CALC BUN/CREAT (test code = [...] code = 2219) 13 U/L Delfino OrtaLIPID [id number] 00:00:00* Test Item Value Reference Range Interpretation Comme nts CHOLESTEROL (test code = 2210) 183 MG/DL TRIGLYCERIDES (test code = 2232) 69 MG/DL HDL CHOLESTEROL (test code = 2220) 93 MG/DL CALC LDL CHOL (test code = 2237) 75 MG/DL RISK RATIO LDL/HDL (test cod e = 2238) 0.81 RATIO Delfino OrtaCOMPREHENSIVE METABOLIC [id number] 00:00:00* Test Item Value Reference Range Interpretation Comme nts GLUCOSE (test code = 2217) 74 MG/DL BUN (test code = 2208) 16 MG/DL CREATININE (test code = 2214) 0.96 MG/DL eGFR (2020 CKD-EPI) (test co de = 19986) 69 ML/MIN/1.73 CALC BUN/CREAT (test code = [...] code = 2219) 13 U/L Delfino OrtaLIPID [id number] 00:00:00* Test Item Value Reference Range Interpretation Comme nts CHOLESTEROL (test code = 2210) 183 MG/DL TRIGLYCERIDES (test code = 2232) 69 MG/DL HDL CHOLESTEROL (test code = 2220) 93 MG/DL CALC LDL CHOL (test code = 2237) 75 MG/DL RISK RATIO LDL/HDL (test cod e = 2238) 0.81 RATIO Delfino Schumacher AustinCOMPREHENSIVE METABOLIC [id number] 00:00:00* Test Item Value Reference Range Interpretation Comme nts GLUCOSE (test code = 2217) 74 MG/DL BUN (test code = 2208) 16 MG/DL CREATININE (test code = 2214) 0.96 MG/DL eGFR (2020 CKD-EPI) (test co de = 53587) 69 ML/MIN/1.73 CALC BUN/CREAT (test code = [...] = 2219) 13 U/L Delfino Schumacher AustinLIPID [id number] 00:00:00* Test Item Value Reference Range Interpretation Comme nts CHOLESTEROL (test code = 2210) 183 MG/DL TRIGLYCERIDES (test code = 2232) 69 MG/DL HDL CHOLESTEROL (test code = 2220) 93 MG/DL CALC LDL CHOL (test code = 2237) 75 MG/DL RISK RATIO LDL/HDL (test cod e = 2238) 0.81 RATIO Delfino Schumacher AustinCOMPREHENSIVE METABOLIC [id number] 00:00:00* Test Item Value Reference Range Interpretation Comme nts GLUCOSE (test code = 2217) 74 MG/DL BUN (test code = 2208) 16 MG/DL CREATININE (test code = 2214) 0.96 MG/DL eGFR (2020 CKD-EPI) (test co de = 36387) 69 ML/MIN/1.73 CALC BUN/CREAT (test code = [...] code = 2219) 13 U/L Delfino Schumacher WimaumaLIPID [id number] 00:00:00* Test Item Value Reference Range Interpretation Comme nts CHOLESTEROL (test code = 2210) 183 MG/DL TRIGLYCERIDES (test code = 2232) 69 MG/DL HDL CHOLESTEROL (test code = 2220) 93 MG/DL CALC LDL CHOL (test code = 2237) 75 MG/DL RISK RATIO LDL/HDL (test cod e = 2238) 0.81 RATIO Delfino Schumacher YouCOMPREHENSIVE METABOLIC [id number] 00:00:00* Test Item Value Reference Range Interpretation Comme nts GLUCOSE (test code = 2217) 74 MG/DL BUN (test code = 2208) 16 MG/DL CREATININE (test code = 2214) 0.96 MG/DL eGFR (2020 CKD-EPI) (test co de = 62700) 69 ML/MIN/1.73 CALC BUN/CREAT (test code = [...] = 2219) 13 U/L Delfino Schumacher AustinLIPID [id number] 00:00:00* Test Item Value Reference Range Interpretation Comme nts CHOLESTEROL (test code = 2210) 183 MG/DL TRIGLYCERIDES (test code = 2232) 69 MG/DL HDL CHOLESTEROL (test code = 2220) 93 MG/DL CALC LDL CHOL (test code = 2237) 75 MG/DL RISK RATIO LDL/HDL (test cod e = 2238) 0.81 RATIO Delfino OrtaCOMPREHENSIVE METABOLIC [id number] 00:00:00* Test Item Value Reference Range Interpretation Comme nts GLUCOSE (test code = 2217) 74 MG/DL BUN (test code = 2208) 16 MG/DL CREATININE (test code = 2214) 0.96 MG/DL eGFR (2020 CKD-EPI) (test co de = 50172) 69 ML/MIN/1.73 CALC BUN/CREAT (test code = [...] = 2219) 13 U/L Delfino Schumacher AustinLIPID [id number] 00:00:00* Test Item Value Reference Range Interpretation Comme nts CHOLESTEROL (test code = 2210) 183 MG/DL TRIGLYCERIDES (test code = 2232) 69 MG/DL HDL CHOLESTEROL (test code = 2220) 93 MG/DL CALC LDL CHOL (test code = 2237) 75 MG/DL RISK RATIO LDL/HDL (test cod e = 2238) 0.81 RATIO Delfino OrtaCOMPREHENSIVE METABOLIC [id number] 00:00:00* Test Item Value Reference Range Interpretation Comme nts GLUCOSE (test code = 2217) 74 MG/DL BUN (test code = 2208) 16 MG/DL CREATININE (test code = 2214) 0.96 MG/DL eGFR (2020 CKD-EPI) (test co de = 02721) 69 ML/MIN/1.73 CALC BUN/CREAT (test code = [...] = 2219) 13 U/L Delfino Schumacher AustinLIPID [id number] 00:00:00* Test Item Value Reference Range Interpretation Comme nts CHOLESTEROL (test code = 2210) 183 MG/DL TRIGLYCERIDES (test code = 2232) 69 MG/DL HDL CHOLESTEROL (test code = 2220) 93 MG/DL CALC LDL CHOL (test code = 2237) 75 MG/DL RISK RATIO LDL/HDL (test cod e = 2238) 0.81 RATIO Delfino Schumacher AustinCOMPREHENSIVE METABOLIC [id number] 00:00:00* Test Item Value Reference Range Interpretation Comme nts GLUCOSE (test code = 2217) 74 MG/DL BUN (test code = 2208) 16 MG/DL CREATININE (test code = 2214) 0.96 MG/DL eGFR (2020 CKD-EPI) (test co de = 97229) 69 ML/MIN/1.73 CALC BUN/CREAT (test code = [...] code = 2219) 13 U/L Delfino OrtaLIPID [id number] 00:00:00* Test Item Value Reference Range Interpretation Comme nts CHOLESTEROL (test code = 2210) 183 MG/DL TRIGLYCERIDES (test code = 2232) 69 MG/DL HDL CHOLESTEROL (test code = 2220) 93 MG/DL CALC LDL CHOL (test code = 2237) 75 MG/DL RISK RATIO LDL/HDL (test cod e = 2238) 0.81 RATIO Delfino Schumacher YouCOMPREHENSIVE METABOLIC [id number] 00:00:00* Test Item Value Reference Range Interpretation Comme nts GLUCOSE (test code = 2217) 74 MG/DL BUN (test code = 2208) 16 MG/DL CREATININE (test code = 2214) 0.96 MG/DL eGFR (2020 CKD-EPI) (test co de = 01032) 69 ML/MIN/1.73 CALC BUN/CREAT (test code = [...] = 2219) 13 U/L Delfino Schumacher AustinLIPID [id number] 00:00:00* Test Item Value Reference Range Interpretation Comme nts CHOLESTEROL (test code = 2210) 183 MG/DL TRIGLYCERIDES (test code = 2232) 69 MG/DL HDL CHOLESTEROL (test code = 2220) 93 MG/DL CALC LDL CHOL (test code = 2237) 75 MG/DL RISK RATIO LDL/HDL (test cod e = 2238) 0.81 RATIO Delfino OrtaCOMPREHENSIVE METABOLIC [id number] 00:00:00* Test Item Value Reference Range Interpretation Comme nts GLUCOSE (test code = 2217) 74 MG/DL BUN (test code = 2208) 16 MG/DL CREATININE (test code = 2214) 0.96 MG/DL eGFR (2020 CKD-EPI) (test co de = 17363) 69 ML/MIN/1.73 CALC BUN/CREAT (test code = [...] = 2219) 13 U/L Delfino Schumacher AustinLIPID [id number] 00:00:00* Test Item Value Reference Range Interpretation Comme nts CHOLESTEROL (test code = 2210) 183 MG/DL TRIGLYCERIDES (test code = 2232) 69 MG/DL HDL CHOLESTEROL (test code = 2220) 93 MG/DL CALC LDL CHOL (test code = 2237) 75 MG/DL RISK RATIO LDL/HDL (test cod e = 2238) 0.81 RATIO Delfino OrtaCOMPREHENSIVE METABOLIC [id number] 00:00:00* Test Item Value Reference Range Interpretation Comme nts GLUCOSE (test code = 2217) 74 MG/DL BUN (test code = 2208) 16 MG/DL CREATININE (test code = 2214) 0.96 MG/DL eGFR (2020 CKD-EPI) (test co de = 03924) 69 ML/MIN/1.73 CALC BUN/CREAT (test code = [...] = 2219) 13 U/L Delfino Schumacher AustinLIPID [id number] 00:00:00* Test Item Value Reference Range Interpretation Comme nts CHOLESTEROL (test code = 2210) 183 MG/DL TRIGLYCERIDES (test code = 2232) 69 MG/DL HDL CHOLESTEROL (test code = 2220) 93 MG/DL CALC LDL CHOL (test code = 2237) 75 MG/DL RISK RATIO LDL/HDL (test cod e = 2238) 0.81 RATIO Delfino OrtaCOMPREHENSIVE METABOLIC [id number] 00:00:00* Test Item Value Reference Range Interpretation Comme nts GLUCOSE (test code = 2217) 74 MG/DL BUN (test code = 2208) 16 MG/DL CREATININE (test code = 2214) 0.96 MG/DL eGFR (2020 CKD-EPI) (test co de = 03611) 69 ML/MIN/1.73 CALC BUN/CREAT (test code = [...] = 2219) 13 U/L Delfino OrtaCOMPREHENSIVE METABOLIC [id number] 00:00:00* Test Item Value Reference Range Interpretation Comme nts GLUCOSE (test code = 2217) 74 MG/DL BUN (test code = 2208) 16 MG/DL CREATININE (test code = 2214) 0.96 MG/DL eGFR (2020 CKD-EPI) (test co de = 61707) 69 ML/MIN/1.73 CALC BUN/CREAT (test code = [...] (test code = 2219) 13 U/L LIPID [id number] 00:00:00* Test Item Value Reference Range Interpretation Comme nts CHOLESTEROL (test code = 2210) 183 MG/DL TRIGLYCERIDES (test code = 2232) 69 MG/DL HDL CHOLESTEROL (test code = 2220) 93 MG/DL CALC LDL CHOL (test code = 2237) 75 MG/DL RISK RATIO LDL/HDL (test cod e = 2238) 0.81 RATIO LIPID [id number] 00:00:00* Test Item Value Reference Range Interpretation Comme nts CHOLESTEROL (test code = 2210) 183 MG/DL TRIGLYCERIDES (test code = 2232) 69 MG/DL HDL CHOLESTEROL (test code = 2220) 93 MG/DL CALC LDL CHOL (test code = 2237) 75 MG/DL RISK RATIO LDL/HDL (test cod e = 2238) 0.81 RATIO Delfino F AustinCOMPREHENSIVE METABOLIC [id number] 00:00:00* Test Item Value Reference Range Interpretation Comme nts GLUCOSE (test code = 2217) 74 MG/DL BUN (test code = 2208) 16 MG/DL CREATININE (test code = 2214) 0.96 MG/DL eGFR (2020 CKD-EPI) (test co de = 84552) 69 ML/MIN/1.73 CALC BUN/CREAT (test code = [...] 2219) 13 U/L Delfino Schumacher AustinCOMPREHENSIVE METABOLIC [id number] 00:00:00* Test Item Value Reference Range Interpretation Comme nts GLUCOSE (test code = 2217) 74 MG/DL BUN (test code = 2208) 16 MG/DL CREATININE (test code = 2214) 0.96 MG/DL eGFR (2020 CKD-EPI) (test co de = 86119) 69 ML/MIN/1.73 CALC BUN/CREAT (test code = [...] = 2219) 13 U/L Delfino Schumacher AustinLIPID [id number] 00:00:00* Test Item Value Reference Range Interpretation Comme nts CHOLESTEROL (test code = 2210) 183 MG/DL TRIGLYCERIDES (test code = 2232) 69 MG/DL HDL CHOLESTEROL (test code = 2220) 93 MG/DL CALC LDL CHOL (test code = 2237) 75 MG/DL RISK RATIO LDL/HDL (test cod e = 2238) 0.81 RATIO Delfino Schumacher AustinCOMPREHENSIVE METABOLIC [id number] 00:00:00* Test Item Value Reference Range Interpretation Comme nts GLUCOSE (test code = 2217) 74 MG/DL BUN (test code = 2208) 16 MG/DL CREATININE (test code = 2214) 0.96 MG/DL eGFR (2020 CKD-EPI) (test co de = 65171) 69 ML/MIN/1.73 CALC BUN/CREAT (test code = [...] code = 2219) 13 U/L Delfino OrtaLIPID [id number] 00:00:00* Test Item Value Reference Range Interpretation Comme nts CHOLESTEROL (test code = 2210) 183 MG/DL TRIGLYCERIDES (test code = 2232) 69 MG/DL HDL CHOLESTEROL (test code = 2220) 93 MG/DL CALC LDL CHOL (test code = 2237) 75 MG/DL RISK RATIO LDL/HDL (test cod e = 2238) 0.81 RATIO Delfino Schumacher AustinLIPID [id number] 00:00:00* Test Item Value Reference Range Interpretation Comme nts CHOLESTEROL (test code = 2210) 183 MG/DL TRIGLYCERIDES (test code = 2232) 69 MG/DL HDL CHOLESTEROL (test code = 2220) 93 MG/DL CALC LDL CHOL (test code = 2237) 75 MG/DL RISK RATIO LDL/HDL (test cod e = 2238) 0.81 RATIO Delfino Schumacher AustinCOMPREHENSIVE METABOLIC [id number] 00:00:00* Test Item Value Reference Range Interpretation Comme nts GLUCOSE (test code = 2217) 74 MG/DL BUN (test code = 2208) 16 MG/DL CREATININE (test code = 2214) 0.96 MG/DL eGFR (2020 CKD-EPI) (test co de = 53251) 69 ML/MIN/1.73 CALC BUN/CREAT (test code = [...] code = 2219) 13 U/L Delfino OrtaLIPID [id number] 00:00:00* Test Item Value Reference Range Interpretation Comme nts CHOLESTEROL (test code = 2210) 183 MG/DL TRIGLYCERIDES (test code = 2232) 69 MG/DL HDL CHOLESTEROL (test code = 2220) 93 MG/DL CALC LDL CHOL (test code = 2237) 75 MG/DL RISK RATIO LDL/HDL (test cod e = 2238) 0.81 RATIO Delfino OrtaCOMPREHENSIVE METABOLIC [id number] 00:00:00* Test Item Value Reference Range Interpretation Comme nts GLUCOSE (test code = 2217) 74 MG/DL BUN (test code = 2208) 16 MG/DL CREATININE (test code = 2214) 0.96 MG/DL eGFR (2020 CKD-EPI) (test co de = 16715) 69 ML/MIN/1.73 CALC BUN/CREAT (test code = [...] code = 2219) 13 U/L Delfino Cedeño [id number] 09:14:59SPECIMEN NUMBER: [id number] CULTURE, URINE SPECIMEN NUMBER: [id number] SPECIMEN COMMENT: URINE SOURCE: URINE REPORT STATUS: FINAL FINAL REPORT: 07/05/2021 >100,000 CFU/ML MIXED MICROBIAL POPULATIONPRESENT, NO PREDOMINATING ORGANISMS;PROBABLE CONTAMINANTS.CULTURE, [id number] 00:00:00* Test Item Value Reference Range Interpretation Comme nts CULTURE, URINE (test code = 73521) SPECIMEN NUMBER: [id number] Delfino Cedeño [id number] 00:00:00* Test Item Value Reference Range Interpretation Comme nts CULTURE, URINE (test code = 24937) SPECIMEN NUMBER: [id number] ANGEL [id number] 00:00:00* Test Item Value Reference Range Interpretation Comme nts CULTURE, URINE (test code = 79330) SPECIMEN NUMBER: [id number] Delfino Cedeño, [id number] 00:00:00* Test Item Value Reference Range Interpretation Comme nts CULTURE, URINE (test code = 88229) SPECIMEN NUMBER: [id number] Delfino Cedeño [id number] 00:00:00* Test Item Value Reference Range Interpretation Comme nts CULTURE, URINE (test code = 84764) SPECIMEN NUMBER: [id number] Delfino Cedeño [id number] 00:00:00* Test Item Value Reference Range Interpretation Comme nts CULTURE, URINE (test code = 28774) SPECIMEN NUMBER: [id number] Delfino Cedeño, [id number] 00:00:00* Test Item Value Reference Range Interpretation Comme nts CULTURE, URINE (test code = 38257) SPECIMEN NUMBER: [id number] ANGEL [id number] 00:00:00* Test Item Value Reference Range Interpretation Comme nts CULTURE, URINE (test code = 94103) SPECIMEN NUMBER: [id number] Delfino Cedeño, [id number] 00:00:00* Test Item Value Reference Range Interpretation Comme nts CULTURE, URINE (test code = 45905) SPECIMEN NUMBER: [id number] Delfino Cedeño, [id number] 00:00:00* Test Item Value Reference Range Interpretation Comme nts CULTURE, URINE (test code = 36238) SPECIMEN NUMBER: [id number] Delfino SarmientoLTNIALL, [id number] 00:00:00* Test Item Value Reference Range Interpretation Comme nts CULTURE, URINE (test code = 25880) SPECIMEN NUMBER: [id number] Delfino SarmientoLTNIALL, [id number] 00:00:00* Test Item Value Reference Range Interpretation Comme nts CULTURE, URINE (test code = 29548) SPECIMEN NUMBER: [id number] AUBREY [id number] 00:00:00* Test Item Value Reference Range Interpretation Comme nts CULTURE, URINE (test code = 35797) SPECIMEN NUMBER: [id number] Delfino SarmientoLTNIALL, [id number] 00:00:00* Test Item Value Reference Range Interpretation Comme nts CULTURE, URINE (test code = 99098) SPECIMEN NUMBER: [id number] CULTURE, [id number] 00:00:00* Test Item Value Reference Range Interpretation Comme nts CULTURE, URINE (test code = 86877) SPECIMEN NUMBER: [id number] AUBREY [id number] 00:00:00* Test Item Value Reference Range Interpretation Comme nts CULTURE, URINE (test code = 58328) SPECIMEN NUMBER: [id number] CULTURE, [id number] 00:00:00* Test Item Value Reference Range Interpretation Comme nts CULTURE, URINE (test code = 06973) SPECIMEN NUMBER: [id number] Delfino OrtaCULTNIALL, [id number] 00:00:00* Test Item Value Reference Range Interpretation Comme nts CULTURE, URINE (test code = 01972) SPECIMEN NUMBER: [id number] Delfino SarmientoLTNIALL, [id number] 00:00:00* Test Item Value Reference Range Interpretation Comme nts CULTURE, URINE (test code = 19533) SPECIMEN NUMBER: [id number] Delfino Cedeño, [id number] 00:00:00* Test Item Value Reference Range Interpretation Comme nts CULTURE, URINE (test code = 98590) SPECIMEN NUMBER: [id number] Delfino Cedeño, [id number] 00:00:00* Test Item Value Reference Range Interpretation Comme nts CULTURE, URINE (test code = 26344) SPECIMEN NUMBER: [id number] Delfino OrtaVAGINAL PATHOGENS DNA [id number] 15:31:31* Test Item Value Reference Range Interpretation Comme nts DIANNA SPECIES (test code = 98337) NEGATIVE NEGATIVE G. VAGINALIS (test code = 91096) NEGATIVE NEGATIVE T. VAGINALIS (test code = 20029) NEGATIVE NEGATIVE UNLESS OTHERWISE INDICATED, ALL TESTING [facility] [employer] [employer] [address] [place] [address] BLEACH MAKER: ALYSSIA FRASER M.D. CLIA NUMBER [id number] [facility] [place]. [id number] VAGINAL PATHOGENS DNA [id number] 00:00:00* Test Item Value Reference Range Interpretation Comme nts DIANNA SPECIES (test code = 98580) NEGATIVE G. VAGINALIS (test code = 26046) NEGATIVE T. VAGINALIS (test code = 70925) NEGATIVE Delfino Schumacher AustinVAGINAL PATHOGENS DNA [id number] 00:00:00* Test Item Value Reference Range Interpretation Comme nts DIANNA SPECIES (test code = 16564) NEGATIVE G. VAGINALIS (test code = 08682) NEGATIVE T. VAGINALIS (test code = 80242) NEGATIVE Delfino Schumacher AustinVAGINAL PATHOGENS DNA [id number] 00:00:00* Test Item Value Reference Range Interpretation Comme nts DIANNA SPECIES (test code = 51614) NEGATIVE G. VAGINALIS (test code = 73300) NEGATIVE T. VAGINALIS (test code = 75136) NEGATIVE Delfino Schumacher AustinVAGINAL PATHOGENS DNA [id number] 00:00:00* Test Item Value Reference Range Interpretation Comme nts DIANNA SPECIES (test code = 94583) NEGATIVE G. VAGINALIS (test code = 93808) NEGATIVE T. VAGINALIS (test code = 08839) NEGATIVE Delfino Schumacher AustinVAGINAL PATHOGENS DNA [id number] 00:00:00* Test Item Value Reference Range Interpretation Comme nts DIANNA SPECIES (test code = ) NEGATIVE G. VAGINALIS (test code = 87904) NEGATIVE T. VAGINALIS (test code = 12000) NEGATIVE Delfino F AustinVAGINAL PATHOGENS DNA [id number] 00:00:00* Test Item Value Reference Range Interpretation Comme nts DIANNA SPECIES (test code = 40181) NEGATIVE G. VAGINALIS (test code = 99131) NEGATIVE T. VAGINALIS (test code = 50863) NEGATIVE Delfino F AustinVAGINAL PATHOGENS DNA [id number] 00:00:00* Test Item Value Reference Range Interpretation Comme nts DIANNA SPECIES (test code = 86882) NEGATIVE G. VAGINALIS (test code = 51852) NEGATIVE T. VAGINALIS (test code = 02982) NEGATIVE Delfino F AustinVAGINAL PATHOGENS DNA [id number] 00:00:00* Test Item Value Reference Range Interpretation Comme nts DIANNA SPECIES (test code = 31120) NEGATIVE G. VAGINALIS (test code = 01048) NEGATIVE T. VAGINALIS (test code = 59263) NEGATIVE Delfino F AustinVAGINAL PATHOGENS DNA [id number] 00:00:00* Test Item Value Reference Range Interpretation Comme nts DIANNA SPECIES (test code = 34352) NEGATIVE G. VAGINALIS (test code = 73978) NEGATIVE T. VAGINALIS (test code = ) NEGATIVE Delfino F AustinVAGINAL PATHOGENS DNA [id number] 00:00:00* Test Item Value Reference Range Interpretation Comme nts DIANNA SPECIES (test code = 48597) NEGATIVE G. VAGINALIS (test code = 99600) NEGATIVE T. VAGINALIS (test code = 58313) NEGATIVE Delfino F AustinVAGINAL PATHOGENS DNA [id number] 00:00:00* Test Item Value Reference Range Interpretation Comme nts DIANNA SPECIES (test code = 43404) NEGATIVE G. VAGINALIS (test code = 76522) NEGATIVE T. VAGINALIS (test code = 07788) NEGATIVE Delfino F AustinVAGINAL PATHOGENS DNA [id number] 00:00:00* Test Item Value Reference Range Interpretation Comme nts DIANNA SPECIES (test code = 29172) NEGATIVE G. VAGINALIS (test code = 87265) NEGATIVE T. VAGINALIS (test code = 09707) NEGATIVE Delfino F AustinVAGINAL PATHOGENS DNA [id number] 00:00:00* Test Item Value Reference Range Interpretation Comme nts DIANNA SPECIES (test code = 58079) NEGATIVE G. VAGINALIS (test code = 03366) NEGATIVE T. VAGINALIS (test code = 93695) NEGATIVE VAGINAL PATHOGENS DNA [id number] 00:00:00* Test Item Value Reference Range Interpretation Comme nts DIANNA SPECIES (test code = 95141) NEGATIVE G. VAGINALIS (test code = 47470) NEGATIVE T. VAGINALIS (test code = 02763) NEGATIVE VAGINAL PATHOGENS DNA [id number] 00:00:00* Test Item Value Reference Range Interpretation Comme nts DIANNA SPECIES (test code = 66347) NEGATIVE G. VAGINALIS (test code = 33036) NEGATIVE T. VAGINALIS (test code = 53977) NEGATIVE VAGINAL PATHOGENS DNA [id number] 00:00:00* Test Item Value Reference Range Interpretation Comme nts DIANNA SPECIES (test code = 21182) NEGATIVE G. VAGINALIS (test code = 63841) NEGATIVE T. VAGINALIS (test code = 52100) NEGATIVE VAGINAL PATHOGENS DNA [id number] 00:00:00* Test Item Value Reference Range Interpretation Comme nts DIANNA SPECIES (test code = 81398) NEGATIVE G. VAGINALIS (test code = 11730) NEGATIVE T. VAGINALIS (test code = 16085) NEGATIVE Delfino F AustinVAGINAL PATHOGENS DNA [id number] 00:00:00* Test Item Value Reference Range Interpretation Comme nts DIANNA SPECIES (test code = 13126) NEGATIVE G. VAGINALIS (test code = 50719) NEGATIVE T. VAGINALIS (test code = 10933) NEGATIVE Delfino F AustinVAGINAL PATHOGENS DNA [id number] 00:00:00* Test Item Value Reference Range Interpretation Comme nts DIANNA SPECIES (test code = 34725) NEGATIVE G. VAGINALIS (test code = 50149) NEGATIVE T. VAGINALIS (test code = 29822) NEGATIVE Delfino F AustinVAGINAL PATHOGENS DNA [id number] 00:00:00* Test Item Value Reference Range Interpretation Comme nts DIANNA SPECIES (test code = 05192) NEGATIVE G. VAGINALIS (test code = 01385) NEGATIVE T. VAGINALIS (test code = 83518) NEGATIVE Delfino F AustinVAGINAL PATHOGENS DNA [id number] 00:00:00* Test Item Value Reference Range Interpretation Comme nts DIANNA SPECIES (test code = 82966) NEGATIVE G. VAGINALIS (test code = 37331) NEGATIVE T. VAGINALIS (test code = 91032) NEGATIVE Delfino Cedeño, [id number] 12:43:02SPECIMEN NUMBER: [id number] CULTURE, URINE SPECIMEN NUMBER: [id number] SPECIMEN COMMENT: URINE SOURCE: URINE REPORT STATUS: [...] Comme nts CULTURE, URINE (test code = 39721) SPECIMEN NUMBER: [id number] Delfino Cedeño, [id number] 00:00:00* Test Item Value Reference Range Interpretation Comme nts CULTURE, URINE (test code = 95797) SPECIMEN NUMBER: [id number] Delfino Cedeño, [id number] 00:00:00* Test Item Value Reference Range Interpretation Comme nts CULTURE, URINE (test code = 75298) SPECIMEN NUMBER: [id number] Delfino Cedeño, [id number] 00:00:00* Test Item Value Reference Range Interpretation Comme nts CULTURE, URINE (test code = 81445) SPECIMEN NUMBER: [id number] Delfino Cedeño, [id number] 00:00:00* Test Item Value Reference Range Interpretation Comme nts CULTURE, URINE (test code = 14652) SPECIMEN NUMBER: [id number] Delfino Cedeño, [id number] 00:00:00* Test Item Value Reference Range Interpretation Comme nts CULTURE, URINE (test code = 82432) SPECIMEN NUMBER: [id number] Delfino Cedeño, [id number] 00:00:00* Test Item Value Reference Range Interpretation Comme nts CULTURE, URINE (test code = 82042) SPECIMEN NUMBER: [id number] Delfino Cedeño [id number] 00:00:00* Test Item Value Reference Range Interpretation Comme nts CULTURE, URINE (test code = 19280) SPECIMEN NUMBER: [id number] Delfino Cedeño [id number] 00:00:00* Test Item Value Reference Range Interpretation Comme nts CULTURE, URINE (test code = 87705) SPECIMEN NUMBER: [id number] Delfino Cedeño [id number] 00:00:00* Test Item Value Reference Range Interpretation Comme nts CULTURE, URINE (test code = 97352) SPECIMEN NUMBER: [id number] Delfino Cedeño [id number] 00:00:00* Test Item Value Reference Range Interpretation Comme nts CULTURE, URINE (test code = 92213) SPECIMEN NUMBER: [id number] Delfino Cedeño [id number] 00:00:00* Test Item Value Reference Range Interpretation Comme nts CULTURE, URINE (test code = 78329) SPECIMEN NUMBER: [id number] CULTURE [id number] 00:00:00* Test Item Value Reference Range Interpretation Comme nts CULTURE, URINE (test code = 45243) SPECIMEN NUMBER: [id number] Delfino Cedeño, [id number] 00:00:00* Test Item Value Reference Range Interpretation Comme nts CULTURE, URINE (test code = 95422) SPECIMEN NUMBER: [id number] CULTURE, [id number] 00:00:00* Test Item Value Reference Range Interpretation Comme nts CULTURE, URINE (test code = 63429) SPECIMEN NUMBER: [id number] CULTURE, [id number] 00:00:00* Test Item Value Reference Range Interpretation Comme nts CULTURE, URINE (test code = 67811) SPECIMEN NUMBER: [id number] AUBREY, [id number] 00:00:00* Test Item Value Reference Range Interpretation Comme nts CULTURE, URINE (test code = 07309) SPECIMEN NUMBER: [id number] Delfino SarmientoLTURE, [id number] 00:00:00* Test Item Value Reference Range Interpretation Comme nts CULTURE, URINE (test code = 74519) SPECIMEN NUMBER: [id number] Delfino Cedeño, [id number] 00:00:00* Test Item Value Reference Range Interpretation Comme nts CULTURE, URINE (test code = 95102) SPECIMEN NUMBER: [id number] Delfino SarmientoLTURE, [id number] 00:00:00* Test Item Value Reference Range Interpretation Comme nts CULTURE, URINE (test code = 12305) SPECIMEN NUMBER: [id number] Delfino SarmientoLTURE, [id number] 00:00:00* Test Item Value Reference Range Interpretation Comme nts CULTURE, URINE (test code = 92444) SPECIMEN NUMBER: [id number] Delfino OrtaURINALYSIS WITH [id number] 07:51:12* Test Item Value Reference Range Interpretation [...] code = 1510) 0.2 MG/DL See_Comment [Automated [employer] ge] The system which generated this result [...] 0-5 A EPITHELIAL CELLS (test code = 38643) 0-5 /HPF 0-10 BACTERIA (test code = 1515) 3+ NONE SEEN A CASTS, HYALINE (test code = 1517) TRACE NONE-TRACE UNLESS OTHERWISE INDICATED, ALL TESTING PERFORMED [facility] [address] [place] [address] BLEACH MAKER: ALYSSIA FRASER M.D. CLIA NUMBER [id number] [facility] [place]. [id number] URINALYSIS WITH [id number] 00:00:00* Test Item Value Reference Range Interpretation [...] >50 /HPF EPITHELIAL CELLS (test code = 50457) 0-5 /HPF BACTERIA (test code = 1515) 3+ CASTS, HYALINE (test code = 1517) TRACE Delfino F AustinURINALYSIS WITH [id number] 00:00:00* Test Item Value Reference Range Interpretation [...] >50 /HPF EPITHELIAL CELLS (test code = 07420) 0-5 /HPF BACTERIA (test code = 1515) 3+ CASTS, HYALINE (test code = 1517) TRACE Delfino F AustinURINALYSIS WITH [id number] 00:00:00* Test Item Value Reference Range Interpretation [...] >50 /HPF EPITHELIAL CELLS (test code = 57905) 0-5 /HPF BACTERIA (test code = 1515) 3+ CASTS, HYALINE (test code = 1517) TONY Schumacher AustinURINALYSIS WITH [id number] 00:00:00* Test Item Value Reference Range Interpretation [...] >50 /HPF EPITHELIAL CELLS (test code = 53438) 0-5 /HPF BACTERIA (test code = 1515) 3+ CASTS, HYALINE (test code = 1517) TONY Schumacher AustinURINALYSIS WITH [id number] 00:00:00* Test Item Value Reference Range Interpretation [...] >50 /HPF EPITHELIAL CELLS (test code = 75938) 0-5 /HPF BACTERIA (test code = 1515) 3+ CASTS, HYALINE (test code = 1517) TONY Schumacher AustinURINALYSIS WITH [id number] 00:00:00* Test Item Value Reference Range Interpretation [...] >50 /HPF EPITHELIAL CELLS (test code = 91418) 0-5 /HPF BACTERIA (test code = 1515) 3+ CASTS, HYALINE (test code = 1517) TONY Schumacher AustinURINALYSIS WITH [id number] 00:00:00* Test Item Value Reference Range Interpretation [...] >50 /HPF EPITHELIAL CELLS (test code = 68029) 0-5 /HPF BACTERIA (test code = 1515) 3+ CASTS, HYALINE (test code = 1517) TONY Schumacher AustinURINALYSIS WITH [id number] 00:00:00* Test Item Value Reference Range Interpretation [...] >50 /HPF EPITHELIAL CELLS (test code = 16676) 0-5 /HPF BACTERIA (test code = 1515) 3+ CASTS, HYALINE (test code = 1517) TONY Schumacher AustinURINALYSIS WITH [id number] 00:00:00* Test Item Value Reference Range Interpretation [...] >50 /HPF EPITHELIAL CELLS (test code = 01252) 0-5 /HPF BACTERIA (test code = 1515) 3+ CASTS, HYALINE (test code = 1517) TONY Schumacher AustinURINALYSIS WITH [id number] 00:00:00* Test Item Value Reference Range Interpretation [...] >50 /HPF EPITHELIAL CELLS (test code = 59116) 0-5 /HPF BACTERIA (test code = 1515) 3+ CASTS, HYALINE (test code = 1517) TONY OrtaURINALYSIS WITH [id number] 00:00:00* Test Item Value Reference Range Interpretation [...] >50 /HPF EPITHELIAL CELLS (test code = 08177) 0-5 /HPF BACTERIA (test code = 1515) 3+ CASTS, HYALINE (test code = 1517) TRACE Delfino Schumacher AustinURINALYSIS WITH [id number] 00:00:00* Test Item Value Reference Range Interpretation [...] >50 /HPF EPITHELIAL CELLS (test code = 88519) 0-5 /HPF BACTERIA (test code = 1515) 3+ CASTS, HYALINE (test code = 1517) TRACE Delfino Schumacher AustinURINALYSIS WITH [id number] 00:00:00* Test Item Value Reference Range Interpretation [...] >50 /HPF EPITHELIAL CELLS (test code = 54730) 0-5 /HPF BACTERIA (test code = 1515) 3+ CASTS, HYALINE (test code = 1517) TRACE URINALYSIS WITH [id number] 00:00:00* Test Item Value Reference Range Interpretation [...] >50 /HPF EPITHELIAL CELLS (test code = 61083) 0-5 /HPF BACTERIA (test code = 1515) 3+ CASTS, HYALINE (test code = 1517) TRACE URINALYSIS WITH [id number] 00:00:00* Test Item Value Reference Range Interpretation [...] >50 /HPF EPITHELIAL CELLS (test code = 97467) 0-5 /HPF BACTERIA (test code = 1515) 3+ CASTS, HYALINE (test code = 1517) TRACE URINALYSIS WITH [id number] 00:00:00* Test Item Value Reference Range Interpretation [...] >50 /HPF EPITHELIAL CELLS (test code = 09211) 0-5 /HPF BACTERIA (test code = 1515) 3+ CASTS, HYALINE (test code = 1517) TRACE URINALYSIS WITH [id number] 00:00:00* Test Item Value Reference Range Interpretation [...] >50 /HPF EPITHELIAL CELLS (test code = 78252) 0-5 /HPF BACTERIA (test code = 1515) 3+ CASTS, HYALINE (test code = 1517) TRACE Delfino F AustinURINALYSIS WITH [id number] 00:00:00* Test Item Value Reference Range Interpretation [...] >50 /HPF EPITHELIAL CELLS (test code = 11842) 0-5 /HPF BACTERIA (test code = 1515) 3+ CASTS, HYALINE (test code = 1517) TONY Schumacher AustinURINALYSIS WITH [id number] 00:00:00* Test Item Value Reference Range Interpretation [...] >50 /HPF EPITHELIAL CELLS (test code = 21496) 0-5 /HPF BACTERIA (test code = 1515) 3+ CASTS, HYALINE (test code = 1517) TONY Schumacher AustinURINALYSIS WITH [id number] 00:00:00* Test Item Value Reference Range Interpretation [...] >50 /HPF EPITHELIAL CELLS (test code = 17505) 0-5 /HPF BACTERIA (test code = 1515) 3+ CASTS, HYALINE (test code = 1517) TONY Schumacher AustinURINALYSIS WITH [id number] 00:00:00* Test Item Value Reference Range Interpretation [...] >50 /HPF EPITHELIAL CELLS (test code = 61585) 0-5 /HPF BACTERIA (test code = 1515) 3+ CASTS, HYALINE (test code = 1517) TRACE Delfino Schumacher AustinCOMPREHENSIVE METABOLIC [id number] 00:00:00* Test Item Value Reference Range Interpretation Comme nts GLUCOSE (test code = 2217) 80 MG/DL BUN (test code = 2208) 18 MG/DL CREATININE (test code = 2214) 1.06 MG/DL eGFR AMER. (test cod e = 00059) 67 ML/MIN/1.73 eGFR NON- AMER. (test code = 36071) 58 ML/MIN/1.73 CALC BUN/CREAT (test code = [...] = 2219) 54 U/L Delfino OrtaCBC W/AUTO [id number] 00:00:00* Test Item Value Reference Range Interpretation [...] ABS NUCLEATED RBCS (test cod e = 00739) 0.00 K/UL COMMENTS (test code = 1016) (NOTE) Delfino OrtaCOMPREHENSIVE METABOLIC [id number] 00:00:00* Test Item Value Reference Range Interpretation Comme nts GLUCOSE (test code = 2217) 80 MG/DL BUN (test code = 2208) 18 MG/DL CREATININE (test code = 2214) 1.06 MG/DL eGFR AMER. (test cod e = 22871) 67 ML/MIN/1.73 eGFR NON- AMER. (test code = 06009) 58 ML/MIN/1.73 CALC BUN/CREAT (test code = [...] code = 2219) 54 U/L Delfino Schumacher [place]LIPID [id number] 00:00:00* Test Item Value Reference Range Interpretation Comme nts CHOLESTEROL (test code = 2210) 174 MG/DL TRIGLYCERIDES (test code = 2232) 63 MG/DL HDL CHOLESTEROL (test code = 2220) 87 MG/DL CALC LDL CHOL (test code = 2237) 73 MG/DL RISK RATIO LDL/HDL (test cod e = 2238) 0.84 RATIO Delfino OrtaCOMPREHENSIVE METABOLIC [id number] 00:00:00* Test Item Value Reference Range Interpretation Comme nts GLUCOSE (test code = 2217) 80 MG/DL BUN (test code = 2208) 18 MG/DL CREATININE (test code = 2214) 1.06 MG/DL eGFR AMER. (test cod e = 44431) 67 ML/MIN/1.73 eGFR NON- AMER. (test code = 19966) 58 ML/MIN/1.73 CALC BUN/CREAT (test code = [...] = 2219) 54 U/L Delfino OrtaCBC W/AUTO [id number] 00:00:00* Test Item Value Reference Range Interpretation [...] ABS NUCLEATED RBCS (test cod e = 03082) 0.00 K/UL COMMENTS (test code = 1016) (NOTE) Delfino OrtaLIPID [id number] 00:00:00* Test Item Value Reference Range Interpretation Comme nts CHOLESTEROL (test code = 2210) 174 MG/DL TRIGLYCERIDES (test code = 2232) 63 MG/DL HDL CHOLESTEROL (test code = 2220) 87 MG/DL CALC LDL CHOL (test code = 2237) 73 MG/DL RISK RATIO LDL/HDL (test cod e = 2238) 0.84 RATIO Delfino OrtaCOMPREHENSIVE METABOLIC [id number] 00:00:00* Test Item Value Reference Range Interpretation Comme nts GLUCOSE (test code = 2217) 80 MG/DL BUN (test code = 2208) 18 MG/DL CREATININE (test code = 2214) 1.06 MG/DL eGFR AMER. (test cod e = 82472) 67 ML/MIN/1.73 eGFR NON- AMER. (test code = 21838) 58 ML/MIN/1.73 CALC BUN/CREAT (test code = [...] = 2219) 54 U/L Delfino OrtaCBC W/AUTO [id number] 00:00:00* Test Item Value Reference Range Interpretation [...] ABS NUCLEATED RBCS (test cod e = 31316) 0.00 K/UL COMMENTS (test code = 1016) (NOTE) Delfino Schumacher AustinLIPID [id number] 00:00:00* Test Item Value Reference Range Interpretation Comme nts CHOLESTEROL (test code = 2210) 174 MG/DL TRIGLYCERIDES (test code = 2232) 63 MG/DL HDL CHOLESTEROL (test code = 2220) 87 MG/DL CALC LDL CHOL (test code = 2237) 73 MG/DL RISK RATIO LDL/HDL (test cod e = 2238) 0.84 RATIO Delfino F YouCOMPREHENSIVE METABOLIC [id number] 00:00:00* Test Item Value Reference Range Interpretation Comme nts GLUCOSE (test code = 2217) 80 MG/DL BUN (test code = 2208) 18 MG/DL CREATININE (test code = 2214) 1.06 MG/DL eGFR AMER. (test cod e = 75462) 67 ML/MIN/1.73 eGFR NON- AMER. (test code = 98553) 58 ML/MIN/1.73 CALC BUN/CREAT (test code = [...] (test code = 2219) 54 U/L Delfino OrtaC W/AUTO [id number] 00:00:00* Test Item Value Reference Range Interpretation [...] ABS NUCLEATED RBCS (test cod e = 75562) 0.00 K/UL COMMENTS (test code = 1016) (NOTE) Delfino Champion [id number] 00:00:00* Test Item Value Reference Range Interpretation Comme nts CHOLESTEROL (test code = 2210) 174 MG/DL TRIGLYCERIDES (test code = 2232) 63 MG/DL HDL CHOLESTEROL (test code = 2220) 87 MG/DL CALC LDL CHOL (test code = 2237) 73 MG/DL RISK RATIO LDL/HDL (test cod e = 2238) 0.84 RATIO Delfino OrtaCOMPREHENSIVE METABOLIC [id number] 00:00:00* Test Item Value Reference Range Interpretation Comme nts GLUCOSE (test code = 2217) 80 MG/DL BUN (test code = 2208) 18 MG/DL CREATININE (test code = 2214) 1.06 MG/DL eGFR AMER. (test cod e = 10606) 67 ML/MIN/1.73 eGFR NON- AMER. (test code = 48652) 58 ML/MIN/1.73 CALC BUN/CREAT (test code = [...] = 2219) 54 U/L Delfino OrtaCBC W/AUTO [id number] 00:00:00* Test Item Value Reference Range Interpretation [...] ABS NUCLEATED RBCS (test cod e = 30486) 0.00 K/UL COMMENTS (test code = 1016) (NOTE) Delfino Schumacher AustinLIPID [id number] 00:00:00* Test Item Value Reference Range Interpretation Comme nts CHOLESTEROL (test code = 2210) 174 MG/DL TRIGLYCERIDES (test code = 2232) 63 MG/DL HDL CHOLESTEROL (test code = 2220) 87 MG/DL CALC LDL CHOL (test code = 2237) 73 MG/DL RISK RATIO LDL/HDL (test cod e = 2238) 0.84 RATIO Delfino Schumacher YouCOMPREHENSIVE METABOLIC [id number] 00:00:00* Test Item Value Reference Range Interpretation Comme nts GLUCOSE (test code = 2217) 80 MG/DL BUN (test code = 2208) 18 MG/DL CREATININE (test code = 2214) 1.06 MG/DL eGFR AMER. (test cod e = 20352) 67 ML/MIN/1.73 eGFR NON- AMER. (test code = 11175) 58 ML/MIN/1.73 CALC BUN/CREAT (test code = [...] code = 2219) 54 U/L Delfino [facility]umacher [facility] [id number] 00:00:00* Test Item Value Reference Range Interpretation [...] ABS NUCLEATED RBCS (test cod e = 04031) 0.00 K/UL COMMENTS (test code = 1016) (NOTE) Delfino OrtaLIPID [id number] 00:00:00* Test Item Value Reference Range Interpretation Comme nts CHOLESTEROL (test code = 2210) 174 MG/DL TRIGLYCERIDES (test code = 2232) 63 MG/DL HDL CHOLESTEROL (test code = 2220) 87 MG/DL CALC LDL CHOL (test code = 2237) 73 MG/DL RISK RATIO LDL/HDL (test cod e = 2238) 0.84 RATIO Delfino OrtaCOMPREHENSIVE METABOLIC [id number] 00:00:00* Test Item Value Reference Range Interpretation Comme nts GLUCOSE (test code = 2217) 80 MG/DL BUN (test code = 2208) 18 MG/DL CREATININE (test code = 2214) 1.06 MG/DL eGFR AMER. (test cod e = 93976) 67 ML/MIN/1.73 eGFR NON- AMER. (test code = 74264) 58 ML/MIN/1.73 CALC BUN/CREAT (test code = [...] = 2219) 54 U/L Delfino OrtaCBC W/AUTO [id number] 00:00:00* Test Item Value Reference Range Interpretation [...] ABS NUCLEATED RBCS (test cod e = 26262) 0.00 K/UL COMMENTS (test code = 1016) (NOTE) Delfino Schumacher AustinLIPID [id number] 00:00:00* Test Item Value Reference Range Interpretation Comme nts CHOLESTEROL (test code = 2210) 174 MG/DL TRIGLYCERIDES (test code = 2232) 63 MG/DL HDL CHOLESTEROL (test code = 2220) 87 MG/DL CALC LDL CHOL (test code = 2237) 73 MG/DL RISK RATIO LDL/HDL (test cod e = 2238) 0.84 RATIO Delfino Schumacher AustinCOMPREHENSIVE METABOLIC [id number] 00:00:00* Test Item Value Reference Range Interpretation Comme nts GLUCOSE (test code = 2217) 80 MG/DL BUN (test code = 2208) 18 MG/DL CREATININE (test code = 2214) 1.06 MG/DL eGFR AMER. (test cod e = 49963) 67 ML/MIN/1.73 eGFR NON- AMER. (test code = 73678) 58 ML/MIN/1.73 CALC BUN/CREAT (test code = [...] code = 2219) 54 U/L Delfino Schumacher [facility] W/AUTO [id number] 00:00:00* Test Item Value Reference Range Interpretation [...] ABS NUCLEATED RBCS (test cod e = 26401) 0.00 K/UL COMMENTS (test code = 1016) (NOTE) Delfino OrtaLIPID [id number] 00:00:00* Test Item Value Reference Range Interpretation Comme nts CHOLESTEROL (test code = 2210) 174 MG/DL TRIGLYCERIDES (test code = 2232) 63 MG/DL HDL CHOLESTEROL (test code = 2220) 87 MG/DL CALC LDL CHOL (test code = 2237) 73 MG/DL RISK RATIO LDL/HDL (test cod e = 2238) 0.84 RATIO Delfino OrtaCOMPREHENSIVE METABOLIC [id number] 00:00:00* Test Item Value Reference Range Interpretation Comme nts GLUCOSE (test code = 2217) 80 MG/DL BUN (test code = 2208) 18 MG/DL CREATININE (test code = 2214) 1.06 MG/DL eGFR AMER. (test cod e = 96149) 67 ML/MIN/1.73 eGFR NON- AMER. (test code = 36805) 58 ML/MIN/1.73 CALC BUN/CREAT (test code = [...] = 2219) 54 U/L Delfino OrtaCBC W/AUTO [id number] 00:00:00* Test Item Value Reference Range Interpretation [...] ABS NUCLEATED RBCS (test cod e = 04651) 0.00 K/UL COMMENTS (test code = 1016) (NOTE) Delfino Schumacher AustinLIPID [id number] 00:00:00* Test Item Value Reference Range Interpretation Comme nts CHOLESTEROL (test code = 2210) 174 MG/DL TRIGLYCERIDES (test code = 2232) 63 MG/DL HDL CHOLESTEROL (test code = 2220) 87 MG/DL CALC LDL CHOL (test code = 2237) 73 MG/DL RISK RATIO LDL/HDL (test cod e = 2238) 0.84 RATIO Delfino Schumacher YouCOMPREHENSIVE METABOLIC [id number] 00:00:00* Test Item Value Reference Range Interpretation Comme nts GLUCOSE (test code = 2217) 80 MG/DL BUN (test code = 2208) 18 MG/DL CREATININE (test code = 2214) 1.06 MG/DL eGFR AMER. (test cod e = 74432) 67 ML/MIN/1.73 eGFR NON- AMER. (test code = 73763) 58 ML/MIN/1.73 CALC BUN/CREAT (test code = [...] (test code = 2219) 54 U/L [facility]elfino [facility] [id number] 00:00:00* Test Item Value Reference Range Interpretation [...] ABS NUCLEATED RBCS (test cod e = 63531) 0.00 K/UL COMMENTS (test code = 1016) (NOTE) Delfino Schumacher AustinLIPID [id number] 00:00:00* Test Item Value Reference Range Interpretation Comme nts CHOLESTEROL (test code = 2210) 174 MG/DL TRIGLYCERIDES (test code = 2232) 63 MG/DL HDL CHOLESTEROL (test code = 2220) 87 MG/DL CALC LDL CHOL (test code = 2237) 73 MG/DL RISK RATIO LDL/HDL (test cod e = 2238) 0.84 RATIO Delfino OrtaCOMPREHENSIVE METABOLIC [id number] 00:00:00* Test Item Value Reference Range Interpretation Comme nts GLUCOSE (test code = 2217) 80 MG/DL BUN (test code = 2208) 18 MG/DL CREATININE (test code = 2214) 1.06 MG/DL eGFR AMER. (test cod e = 26803) 67 ML/MIN/1.73 eGFR NON- AMER. (test code = 19176) 58 ML/MIN/1.73 CALC BUN/CREAT (test code = [...] = 2219) 54 U/L Delfino OrtaCBC W/AUTO [id number] 00:00:00* Test Item Value Reference Range Interpretation [...] ABS NUCLEATED RBCS (test cod e = 42490) 0.00 K/UL COMMENTS (test code = 1016) (NOTE) Delfino OrtaLIPID [id number] 00:00:00* Test Item Value Reference Range Interpretation Comme nts CHOLESTEROL (test code = 2210) 174 MG/DL TRIGLYCERIDES (test code = 2232) 63 MG/DL HDL CHOLESTEROL (test code = 2220) 87 MG/DL CALC LDL CHOL (test code = 2237) 73 MG/DL RISK RATIO LDL/HDL (test cod e = 2238) 0.84 RATIO Delfino OratCOMPREHENSIVE METABOLIC [id number] 00:00:00* Test Item Value Reference Range Interpretation Comme nts GLUCOSE (test code = 2217) 80 MG/DL BUN (test code = 2208) 18 MG/DL CREATININE (test code = 2214) 1.06 MG/DL eGFR AMER. (test cod e = 69728) 67 ML/MIN/1.73 eGFR NON- AMER. (test code = 87968) 58 ML/MIN/1.73 CALC BUN/CREAT (test code = [...] code = 2219) 54 U/L Delfino Schumacher [facility] W/AUTO [id number] 00:00:00* Test Item Value Reference Range Interpretation [...] ABS NUCLEATED RBCS (test cod e = 41889) 0.00 K/UL COMMENTS (test code = 1016) (NOTE) CBC W/AUTO [id number] 00:00:00* Test Item Value Reference Range Interpretation [...] ABS NUCLEATED RBCS (test cod e = 05134) 0.00 K/UL COMMENTS (test code = 1016) (NOTE) Delfino OrtaLIPID [id number] 00:00:00* Test Item Value Reference Range Interpretation Comme nts CHOLESTEROL (test code = 2210) 174 MG/DL TRIGLYCERIDES (test code = 2232) 63 MG/DL HDL CHOLESTEROL (test code = 2220) 87 MG/DL CALC LDL CHOL (test code = 2237) 73 MG/DL RISK RATIO LDL/HDL (test cod e = 2238) 0.84 RATIO LIPID [id number] 00:00:00* Test Item Value Reference Range Interpretation Comme nts CHOLESTEROL (test code = 2210) 174 MG/DL TRIGLYCERIDES (test code = 2232) 63 MG/DL HDL CHOLESTEROL (test code = 2220) 87 MG/DL CALC LDL CHOL (test code = 2237) 73 MG/DL RISK RATIO LDL/HDL (test cod e = 2238) 0.84 RATIO Delfino OrtaCOMPREHENSIVE METABOLIC [id number] 00:00:00* Test Item Value Reference Range Interpretation Comme nts GLUCOSE (test code = 2217) 80 MG/DL BUN (test code = 2208) 18 MG/DL CREATININE (test code = 2214) 1.06 MG/DL eGFR AMER. (test cod e = 58465) 67 ML/MIN/1.73 eGFR NON- AMER. (test code = 39554) 58 ML/MIN/1.73 CALC BUN/CREAT (test code = [...] code = 2219) 54 U/L CBC W/AUTO [id number] 00:00:00* Test Item Value Reference Range Interpretation [...] ABS NUCLEATED RBCS (test cod e = 30212) 0.00 K/UL COMMENTS (test code = 1016) (NOTE) LIPID [id number] 00:00:00* Test Item Value Reference Range Interpretation Comme nts CHOLESTEROL (test code = 2210) 174 MG/DL TRIGLYCERIDES (test code = 2232) 63 MG/DL HDL CHOLESTEROL (test code = 2220) 87 MG/DL CALC LDL CHOL (test code = 2237) 73 MG/DL RISK RATIO LDL/HDL (test cod e = 2238) 0.84 RATIO COMPREHENSIVE METABOLIC [id number] 00:00:00* Test Item Value Reference Range Interpretation Comme nts GLUCOSE (test code = 2217) 80 MG/DL BUN (test code = 2208) 18 MG/DL CREATININE (test code = 2214) 1.06 MG/DL eGFR AMER. (test cod e = 61402) 67 ML/MIN/1.73 eGFR NON- AMER. (test code = 06516) 58 ML/MIN/1.73 CALC BUN/CREAT (test code = [...] code = 2219) 54 U/L CBC W/AUTO [id number] 00:00:00* Test Item Value Reference Range Interpretation [...] ABS NUCLEATED RBCS (test cod e = 40134) 0.00 K/UL COMMENTS (test code = 1016) (NOTE) LIPID [id number] 00:00:00* Test Item Value Reference Range Interpretation Comme nts CHOLESTEROL (test code = 2210) 174 MG/DL TRIGLYCERIDES (test code = 2232) 63 MG/DL HDL CHOLESTEROL (test code = 2220) 87 MG/DL CALC LDL CHOL (test code = 2237) 73 MG/DL RISK RATIO LDL/HDL (test cod e = 2238) 0.84 RATIO COMPREHENSIVE METABOLIC [id number] 00:00:00* Test Item Value Reference Range Interpretation Comme nts GLUCOSE (test code = 2217) 80 MG/DL BUN (test code = 2208) 18 MG/DL CREATININE (test code = 2214) 1.06 MG/DL eGFR AMER. (test cod e = 07363) 67 ML/MIN/1.73 eGFR NON- AMER. (test code = 10844) 58 ML/MIN/1.73 CALC BUN/CREAT (test code = [...] code = 2219) 54 U/L CBC W/AUTO [id number] 00:00:00* Test Item Value Reference Range Interpretation [...] ABS NUCLEATED RBCS (test cod e = 33867) 0.00 K/UL COMMENTS (test code = 1016) (NOTE) LIPID [id number] 00:00:00* Test Item Value Reference Range Interpretation Comme nts CHOLESTEROL (test code = 2210) 174 MG/DL TRIGLYCERIDES (test code = 2232) 63 MG/DL HDL CHOLESTEROL (test code = 2220) 87 MG/DL CALC LDL CHOL (test code = 2237) 73 MG/DL RISK RATIO LDL/HDL (test cod e = 2238) 0.84 RATIO COMPREHENSIVE METABOLIC [id number] 00:00:00* Test Item Value Reference Range Interpretation Comme nts GLUCOSE (test code = 2217) 80 MG/DL BUN (test code = 2208) 18 MG/DL CREATININE (test code = 2214) 1.06 MG/DL eGFR AMER. (test cod e = 23382) 67 ML/MIN/1.73 eGFR NON- AMER. (test code = 42121) 58 ML/MIN/1.73 CALC BUN/CREAT (test code = [...] code = 2219) 54 U/L COMPREHENSIVE METABOLIC [id number] 00:00:00* Test Item Value Reference Range Interpretation Comme nts GLUCOSE (test code = 2217) 80 MG/DL BUN (test code = 2208) 18 MG/DL CREATININE (test code = 2214) 1.06 MG/DL eGFR AMER. (test cod e = 02300) 67 ML/MIN/1.73 eGFR NON- AMER. (test code = 30781) 58 ML/MIN/1.73 CALC BUN/CREAT (test code = [...] (test code = 2219) 54 U/L Delfino [facility] [id number] 00:00:00* Test Item Value Reference Range Interpretation [...] ABS NUCLEATED RBCS (test cod e = 34890) 0.00 K/UL COMMENTS (test code = 1016) (NOTE) Delfino [facility] W/AUTO [id number] 00:00:00* Test Item Value Reference Range Interpretation [...] ABS NUCLEATED RBCS (test cod e = 95868) 0.00 K/UL COMMENTS (test code = 1016) (NOTE) Delfino Endy AustinLIPID [id number] 00:00:00* Test Item Value Reference Range Interpretation Comme nts CHOLESTEROL (test code = 2210) 174 MG/DL TRIGLYCERIDES (test code = 2232) 63 MG/DL HDL CHOLESTEROL (test code = 2220) 87 MG/DL CALC LDL CHOL (test code = 2237) 73 MG/DL RISK RATIO LDL/HDL (test cod e = 2238) 0.84 RATIO Delfino OrtaCOMPREHENSIVE METABOLIC [id number] 00:00:00* Test Item Value Reference Range Interpretation Comme nts GLUCOSE (test code = 2217) 80 MG/DL BUN (test code = 2208) 18 MG/DL CREATININE (test code = 2214) 1.06 MG/DL eGFR AMER. (test cod e = 59737) 67 ML/MIN/1.73 eGFR NON- AMER. (test code = 07217) 58 ML/MIN/1.73 CALC BUN/CREAT (test code = [...] code = 2219) 54 U/L Delfino Schumacher [facility] W/AUTO [id number] 00:00:00* Test Item Value Reference Range Interpretation [...] ABS NUCLEATED RBCS (test cod e = 56622) 0.00 K/UL COMMENTS (test code = 1016) (NOTE) Delfino OrtaLIPID [id number] 00:00:00* Test Item Value Reference Range Interpretation Comme nts CHOLESTEROL (test code = 2210) 174 MG/DL TRIGLYCERIDES (test code = 2232) 63 MG/DL HDL CHOLESTEROL (test code = 2220) 87 MG/DL CALC LDL CHOL (test code = 2237) 73 MG/DL RISK RATIO LDL/HDL (test cod e = 2238) 0.84 RATIO Delfino OrtaCOMPREHENSIVE METABOLIC [id number] 00:00:00* Test Item Value Reference Range Interpretation Comme nts GLUCOSE (test code = 2217) 80 MG/DL BUN (test code = 2208) 18 MG/DL CREATININE (test code = 2214) 1.06 MG/DL eGFR AMER. (test cod e = 31321) 67 ML/MIN/1.73 eGFR NON- AMER. (test code = 49539) 58 ML/MIN/1.73 CALC BUN/CREAT (test code = [...] = 2219) 54 U/L Delfino OrtaCBC W/AUTO [id number] 00:00:00* Test Item Value Reference Range Interpretation [...] ABS NUCLEATED RBCS (test cod e = 73286) 0.00 K/UL COMMENTS (test code = 1016) (NOTE) Delfino Schumacher AustinLIPID [id number] 00:00:00* Test Item Value Reference Range Interpretation Comme nts CHOLESTEROL (test code = 2210) 174 MG/DL TRIGLYCERIDES (test code = 2232) 63 MG/DL HDL CHOLESTEROL (test code = 2220) 87 MG/DL CALC LDL CHOL (test code = 2237) 73 MG/DL RISK RATIO LDL/HDL (test cod e = 2238) 0.84 RATIO Delfino Schumacher AustinLIPID [id number] 00:00:00* Test Item Value Reference Range Interpretation Comme nts CHOLESTEROL (test code = 2210) 174 MG/DL TRIGLYCERIDES (test code = 2232) 63 MG/DL HDL CHOLESTEROL (test code = 2220) 87 MG/DL CALC LDL CHOL (test code = 2237) 73 MG/DL RISK RATIO LDL/HDL (test cod e = 2238) 0.84 RATIO Delfino Schumacher AustinCOMPREHENSIVE METABOLIC [id number] 00:00:00* Test Item Value Reference Range Interpretation Comme nts GLUCOSE (test code = 2217) 80 MG/DL BUN (test code = 2208) 18 MG/DL CREATININE (test code = 2214) 1.06 MG/DL eGFR AMER. (test cod e = 83920) 67 ML/MIN/1.73 eGFR NON- AMER. (test code = 64337) 58 ML/MIN/1.73 CALC BUN/CREAT (test code = [...] (test code = 2219) 54 U/L [facility]elfino [facility] [id number] 00:00:00* Test Item Value Reference Range Interpretation [...] ABS NUCLEATED RBCS (test cod e = 99091) 0.00 K/UL COMMENTS (test code = 1016) (NOTE) Delfino OrtaLIPID [id number] 00:00:00* Test Item Value Reference Range Interpretation Comme nts CHOLESTEROL (test code = 2210) 174 MG/DL TRIGLYCERIDES (test code = 2232) 63 MG/DL HDL CHOLESTEROL (test code = 2220) 87 MG/DL CALC LDL CHOL (test code = 2237) 73 MG/DL RISK RATIO LDL/HDL (test cod e = 2238) 0.84 RATIO Delfino Schumacher [id number] (COVID-19) by RT-PCR (HIGH RISK)2020-01-21 00:00:00* Test Item Value Reference Range Interpretation Comme nts SARS-CoV-2 INTERPRETATION (t est code = 38077) NEGATIVE SOURCE (test code = 28643) NOT SPECIFIED Delfino Schumacher [id number] (COVID-19) by RT-PCR (HIGH RISK)2020-01-21 00:00:00* Test Item Value Reference Range Interpretation Comme nts SARS-CoV-2 INTERPRETATION (t est code = 59505) NEGATIVE SOURCE (test code = 04112) NOT SPECIFIED Delfino Schumacher [id number] (COVID-19) by RT-PCR (HIGH RISK)2020-01-21 00:00:00* Test Item Value Reference Range Interpretation Comme nts SARS-CoV-2 INTERPRETATION (t est code = 83757) NEGATIVE SOURCE (test code = 59752) NOT SPECIFIED Delfino Schumacher [id number] (COVID-19) by RT-PCR (HIGH RISK)2020-01-21 00:00:00* Test Item Value Reference Range Interpretation Comme nts SARS-CoV-2 INTERPRETATION (t est code = 39491) NEGATIVE SOURCE (test code = 48545) NOT SPECIFIED Delfino Schumacher [id number] (COVID-19) by RT-PCR (HIGH RISK)2020-01-21 00:00:00* Test Item Value Reference Range Interpretation Comme nts SARS-CoV-2 INTERPRETATION (t est code = 38020) NEGATIVE SOURCE (test code = 15900) NOT SPECIFIED Delfino Schumacher [id number] (COVID-19) by RT-PCR (HIGH RISK)2020-01-21 00:00:00* Test Item Value Reference Range Interpretation Comme nts SARS-CoV-2 INTERPRETATION (t est code = 15778) NEGATIVE SOURCE (test code = 28802) NOT SPECIFIED Delfino Schumacher [id number] (COVID-19) by RT-PCR (HIGH RISK)2020-01-21 00:00:00* Test Item Value Reference Range Interpretation Comme nts SARS-CoV-2 INTERPRETATION (t est code = 21776) NEGATIVE SOURCE (test code = 31784) NOT SPECIFIED Delfino Schumacher QllmhiVPQP-YlU-1 (COVID-19) by RT-PCR (HIGH RISK)2020-01-21 00:00:00* Test Item Value Reference Range Interpretation Comme nts SARS-CoV-2 INTERPRETATION (t est code = 93435) NEGATIVE SOURCE (test code = 28039) NOT SPECIFIED Delfino Schumacher VwtmglTYSP-SkF-7 (COVID-19) by RT-PCR (HIGH RISK)2020-01-21 00:00:00* Test Item Value Reference Range Interpretation Comme nts SARS-CoV-2 INTERPRETATION (t est code = 21335) NEGATIVE SOURCE (test code = 71391) NOT SPECIFIED Delfino Schumacher OwvuvdGXLR-RyR-5 (COVID-19) by RT-PCR (HIGH RISK)2020-01-21 00:00:00* Test Item Value Reference Range Interpretation Comme nts SARS-CoV-2 INTERPRETATION (t est code = 71554) NEGATIVE SOURCE (test code = 21526) NOT SPECIFIED Delfino F JrznysRVOQ-JqI-0 (COVID-19) by RT-PCR (HIGH RISK)2020-01-21 00:00:00* Test Item Value Reference Range Interpretation Comme nts SARS-CoV-2 INTERPRETATION (t est code = 97566) NEGATIVE SOURCE (test code = 36467) NOT SPECIFIED Delfino F ZwurbfKBVN-MgV-5 (COVID-19) by RT-PCR (HIGH RISK)2020-01-21 00:00:00* Test Item Value Reference Range Interpretation Comme nts SARS-CoV-2 INTERPRETATION (t est code = 85342) NEGATIVE SOURCE (test code = 71285) NOT SPECIFIED SARS-CoV-2 (COVID-19) by RT-PCR (HIGH RISK)2020-01-21 00:00:00* Test Item Value Reference Range Interpretation Comme nts SARS-CoV-2 INTERPRETATION (t est code = 57927) NEGATIVE SOURCE (test code = 25196) NOT SPECIFIED Delfino F MsgexbANGY-PpT-2 (COVID-19) by RT-PCR (HIGH RISK)2020-01-21 00:00:00* Test Item Value Reference Range Interpretation Comme nts SARS-CoV-2 INTERPRETATION (t est code = 72308) NEGATIVE SOURCE (test code = 04061) NOT SPECIFIED SARS-CoV-2 (COVID-19) by RT-PCR (HIGH RISK)2020-01-21 00:00:00* Test Item Value Reference Range Interpretation Comme nts SARS-CoV-2 INTERPRETATION (t est code = 27754) NEGATIVE SOURCE (test code = 30862) NOT SPECIFIED SARS-CoV-2 (COVID-19) by RT-PCR (HIGH RISK)2020-01-21 00:00:00* Test Item Value Reference Range Interpretation Comme nts SARS-CoV-2 INTERPRETATION (t est code = 33296) NEGATIVE SOURCE (test code = 61993) NOT SPECIFIED SARS-CoV-2 (COVID-19) by RT-PCR (HIGH RISK)2020-01-21 00:00:00* Test Item Value Reference Range Interpretation Comme nts SARS-CoV-2 INTERPRETATION (t est code = 64450) NEGATIVE SOURCE (test code = 96642) NOT SPECIFIED Delfino F PrjsiwDGQJ-RuR-5 (COVID-19) by RT-PCR (HIGH RISK)2020-01-21 00:00:00* Test Item Value Reference Range Interpretation Comme nts SARS-CoV-2 INTERPRETATION (t est code = 84392) NEGATIVE SOURCE (test code = 05511) NOT SPECIFIED Delfino F NwrikoTVGG-IkO-1 (COVID-19) by RT-PCR (HIGH RISK)2020-01-21 00:00:00* Test Item Value Reference Range Interpretation Comme nts SARS-CoV-2 INTERPRETATION (t est code = 61456) NEGATIVE SOURCE (test code = 64053) NOT SPECIFIED Delfino OrtaSARS-CoV-2 (COVID-19) by RT-PCR (HIGH RISK)2020-01-21 00:00:00* Test Item Value Reference Range Interpretation Comme nts SARS-CoV-2 INTERPRETATION (t est code = 96616) NEGATIVE SOURCE (test code = 47474) NOT SPECIFIED Delfino Schumacher [id number] (COVID-19) by RT-PCR (HIGH RISK)2020-01-21 00:00:00* Test Item Value Reference Range Interpretation Comme nts SARS-CoV-2 INTERPRETATION (t est code = 96185) NEGATIVE SOURCE (test code = 68317) NOT SPECIFIED Delfino Endy YouCOMPREHENSIVE METABOLIC [id number] 00:00:00* Test Item Value Reference Range Interpretation Comme nts GLUCOSE (test code = 2217) 86 MG/DL BUN (test code = 2208) 16 MG/DL CREATININE (test code = 2214) 0.90 MG/DL eGFR AMER. (test cod e = 30662) 83 ML/MIN/1.73 eGFR NON- AMER. (test code = 54852) 71 ML/MIN/1.73 CALC BUN/CREAT (test code = [...] = 2219) 29 U/L Delfino OrtaCBC W/AUTO [id number] 00:00:00* Test Item Value Reference Range Interpretation [...] code = 1015) 186 K/UL Delfino F AustinCOMPREHENSIVE METABOLIC [id number] 00:00:00* Test Item Value Reference Range Interpretation Comme nts GLUCOSE (test code = 2217) 86 MG/DL BUN (test code = 2208) 16 MG/DL CREATININE (test code = 2214) 0.90 MG/DL eGFR AMER. (test cod e = 29169) 83 ML/MIN/1.73 eGFR NON- AMER. (test code = 16033) 71 ML/MIN/1.73 CALC BUN/CREAT (test code = [...] code = 2219) 29 U/L Delfino F AustinCBC W/AUTO [id number] 00:00:00* Test Item Value Reference Range Interpretation [...] = 1015) 186 K/UL Delfino OrtaCOMPREHENSIVE METABOLIC [id number] 00:00:00* Test Item Value Reference Range Interpretation Comme nts GLUCOSE (test code = 2217) 86 MG/DL BUN (test code = 2208) 16 MG/DL CREATININE (test code = 2214) 0.90 MG/DL eGFR AMER. (test cod e = 45846) 83 ML/MIN/1.73 eGFR NON- AMER. (test code = 56027) 71 ML/MIN/1.73 CALC BUN/CREAT (test code = [...] = 2219) 29 U/L Delfino OrtaCBC W/AUTO [id number] 00:00:00* Test Item Value Reference Range Interpretation [...] = 1015) 186 K/UL Delfino OrtaCOMPREHENSIVE METABOLIC [id number] 00:00:00* Test Item Value Reference Range Interpretation Comme nts GLUCOSE (test code = 2217) 86 MG/DL BUN (test code = 2208) 16 MG/DL CREATININE (test code = 2214) 0.90 MG/DL eGFR AMER. (test cod e = 98399) 83 ML/MIN/1.73 eGFR NON- AMER. (test code = 22498) 71 ML/MIN/1.73 CALC BUN/CREAT (test code = [...] = 2219) 29 U/L Delfino OrtaCBC W/AUTO [id number] 00:00:00* Test Item Value Reference Range Interpretation [...] = 1015) 186 K/UL Delfino OrtaCOMPREHENSIVE METABOLIC [id number] 00:00:00* Test Item Value Reference Range Interpretation Comme nts GLUCOSE (test code = 2217) 86 MG/DL BUN (test code = 2208) 16 MG/DL CREATININE (test code = 2214) 0.90 MG/DL eGFR AMER. (test cod e = 80627) 83 ML/MIN/1.73 eGFR NON- AMER. (test code = 46462) 71 ML/MIN/1.73 CALC BUN/CREAT (test code = [...] = 2219) 29 U/L Delfino OrtaCBC W/AUTO [id number] 00:00:00* Test Item Value Reference Range Interpretation [...] = 1015) 186 K/UL Delfino OrtaCOMPREHENSIVE METABOLIC [id number] 00:00:00* Test Item Value Reference Range Interpretation Comme nts GLUCOSE (test code = 2217) 86 MG/DL BUN (test code = 2208) 16 MG/DL CREATININE (test code = 2214) 0.90 MG/DL eGFR AMER. (test cod e = 75478) 83 ML/MIN/1.73 eGFR NON- AMER. (test code = 35557) 71 ML/MIN/1.73 CALC BUN/CREAT (test code = [...] = 2219) 29 U/L Delfino OrtaCBC W/AUTO [id number] 00:00:00* Test Item Value Reference Range Interpretation [...] = 1015) 186 K/UL Delfino OrtaCOMPREHENSIVE METABOLIC [id number] 00:00:00* Test Item Value Reference Range Interpretation Comme nts GLUCOSE (test code = 2217) 86 MG/DL BUN (test code = 2208) 16 MG/DL CREATININE (test code = 2214) 0.90 MG/DL eGFR AMER. (test cod e = 02079) 83 ML/MIN/1.73 eGFR NON- AMER. (test code = 48510) 71 ML/MIN/1.73 CALC BUN/CREAT (test code = [...] = 2219) 29 U/L Delfino OrtaCBC W/AUTO [id number] 00:00:00* Test Item Value Reference Range Interpretation [...] = 1015) 186 K/UL Delfino OrtaCOMPREHENSIVE METABOLIC [id number] 00:00:00* Test Item Value Reference Range Interpretation Comme nts GLUCOSE (test code = 2217) 86 MG/DL BUN (test code = 2208) 16 MG/DL CREATININE (test code = 2214) 0.90 MG/DL eGFR AMER. (test cod e = 42060) 83 ML/MIN/1.73 eGFR NON- AMER. (test code = 94137) 71 ML/MIN/1.73 CALC BUN/CREAT (test code = [...] = 2219) 29 U/L Delfino OrtaCBC W/AUTO [id number] 00:00:00* Test Item Value Reference Range Interpretation [...] = 1015) 186 K/UL Delfino OrtaCOMPREHENSIVE METABOLIC [id number] 00:00:00* Test Item Value Reference Range Interpretation Comme nts GLUCOSE (test code = 2217) 86 MG/DL BUN (test code = 2208) 16 MG/DL CREATININE (test code = 2214) 0.90 MG/DL eGFR AMER. (test cod e = 19702) 83 ML/MIN/1.73 eGFR NON- AMER. (test code = 33599) 71 ML/MIN/1.73 CALC BUN/CREAT (test code = [...] = 2219) 29 U/L Delfino OrtaCBC W/AUTO [id number] 00:00:00* Test Item Value Reference Range Interpretation [...] = 1015) 186 K/UL Delfino OrtaCOMPREHENSIVE METABOLIC [id number] 00:00:00* Test Item Value Reference Range Interpretation Comme nts GLUCOSE (test code = 2217) 86 MG/DL BUN (test code = 2208) 16 MG/DL CREATININE (test code = 2214) 0.90 MG/DL eGFR AMER. (test cod e = 81085) 83 ML/MIN/1.73 eGFR NON- AMER. (test code = 53690) 71 ML/MIN/1.73 CALC BUN/CREAT (test code = [...] code = 2219) 29 U/L Delfino Schumacher YouCBC W/AUTO [id number] 00:00:00* Test Item Value Reference Range Interpretation [...] 1015) 186 K/UL Delfino Schumacher YouCOMPREHENSIVE METABOLIC [id number] 00:00:00* Test Item Value Reference Range Interpretation Comme nts GLUCOSE (test code = 2217) 86 MG/DL BUN (test code = 2208) 16 MG/DL CREATININE (test code = 2214) 0.90 MG/DL eGFR AMER. (test cod e = 12939) 83 ML/MIN/1.73 eGFR NON- AMER. (test code = 54863) 71 ML/MIN/1.73 CALC BUN/CREAT (test code = [...] = 2219) 29 U/L Delfino OrtaCBC W/AUTO [id number] 00:00:00* Test Item Value Reference Range Interpretation [...] = 1015) 186 K/UL Delfino OrtaCOMPREHENSIVE METABOLIC [id number] 00:00:00* Test Item Value Reference Range Interpretation Comme nts GLUCOSE (test code = 2217) 86 MG/DL BUN (test code = 2208) 16 MG/DL CREATININE (test code = 2214) 0.90 MG/DL eGFR AMER. (test cod e = 52466) 83 ML/MIN/1.73 eGFR NON- AMER. (test code = 01420) 71 ML/MIN/1.73 CALC BUN/CREAT (test code = [...] = 2219) 29 U/L Delfino OrtaCOMPREHENSIVE METABOLIC [id number] 00:00:00* Test Item Value Reference Range Interpretation Comme nts GLUCOSE (test code = 2217) 86 MG/DL BUN (test code = 2208) 16 MG/DL CREATININE (test code = 2214) 0.90 MG/DL eGFR AMER. (test cod e = 38698) 83 ML/MIN/1.73 eGFR NON- AMER. (test code = 49860) 71 ML/MIN/1.73 CALC BUN/CREAT (test code = [...] code = 2219) 29 U/L COMPREHENSIVE METABOLIC [id number] 00:00:00* Test Item Value Reference Range Interpretation Comme nts GLUCOSE (test code = 2217) 86 MG/DL BUN (test code = 2208) 16 MG/DL CREATININE (test code = 2214) 0.90 MG/DL eGFR AMER. (test cod e = 23221) 83 ML/MIN/1.73 eGFR NON- AMER. (test code = 63382) 71 ML/MIN/1.73 CALC BUN/CREAT (test code = [...] (test code = 2219) 29 U/L [facility] [id number] 00:00:00* Test Item Value Reference Range Interpretation [...] code = 1015) 186 K/UL COMPREHENSIVE METABOLIC [id number] 00:00:00* Test Item Value Reference Range Interpretation Comme nts GLUCOSE (test code = 2217) 86 MG/DL BUN (test code = 2208) 16 MG/DL CREATININE (test code = 2214) 0.90 MG/DL eGFR AMER. (test cod e = 15085) 83 ML/MIN/1.73 eGFR NON- AMER. (test code = 95107) 71 ML/MIN/1.73 CALC BUN/CREAT (test code = [...] code = 2219) 29 U/L CBC W/AUTO [id number] 00:00:00* Test Item Value Reference Range Interpretation [...] code = 1015) 186 K/UL COMPREHENSIVE METABOLIC [id number] 00:00:00* Test Item Value Reference Range Interpretation Comme nts GLUCOSE (test code = 2217) 86 MG/DL BUN (test code = 2208) 16 MG/DL CREATININE (test code = 2214) 0.90 MG/DL eGFR AMER. (test cod e = 27815) 83 ML/MIN/1.73 eGFR NON- AMER. (test code = 16403) 71 ML/MIN/1.73 CALC BUN/CREAT (test code = [...] code = 2219) 29 U/L CBC W/AUTO [id number] 00:00:00* Test Item Value Reference Range Interpretation [...] code = 1015) 186 K/UL COMPREHENSIVE METABOLIC [id number] 00:00:00* Test Item Value Reference Range Interpretation Comme nts GLUCOSE (test code = 2217) 86 MG/DL BUN (test code = 2208) 16 MG/DL CREATININE (test code = 2214) 0.90 MG/DL eGFR AMER. (test cod e = 37818) 83 ML/MIN/1.73 eGFR NON- AMER. (test code = 77324) 71 ML/MIN/1.73 CALC BUN/CREAT (test code = [...] code = 2219) 29 U/L CBC W/AUTO [id number] 00:00:00* Test Item Value Reference Range Interpretation [...] code = 1015) 186 K/UL CBC W/AUTO [id number] 00:00:00* Test Item Value Reference Range Interpretation [...] 1015) 186 K/UL Delfino Schumacher YouCOMPREHENSIVE METABOLIC [id number] 00:00:00* Test Item Value Reference Range Interpretation Comme nts GLUCOSE (test code = 2217) 86 MG/DL BUN (test code = 2208) 16 MG/DL CREATININE (test code = 2214) 0.90 MG/DL eGFR AMER. (test cod e = 84877) 83 ML/MIN/1.73 eGFR NON- AMER. (test code = 68958) 71 ML/MIN/1.73 CALC BUN/CREAT (test code = [...] 2219) 29 U/L Delfino F YouCBC W/AUTO [id number] 00:00:00* Test Item Value Reference Range Interpretation [...] = 1015) 186 K/UL Delfino OrtaCOMPREHENSIVE METABOLIC [id number] 00:00:00* Test Item Value Reference Range Interpretation Comme nts GLUCOSE (test code = 2217) 86 MG/DL BUN (test code = 2208) 16 MG/DL CREATININE (test code = 2214) 0.90 MG/DL eGFR AMER. (test cod e = 14097) 83 ML/MIN/1.73 eGFR NON- AMER. (test code = 18740) 71 ML/MIN/1.73 CALC BUN/CREAT (test code = [...] = 2219) 29 U/L Delfino OrtaCBC W/AUTO [id number] 00:00:00* Test Item Value Reference Range Interpretation [...] (test code = 1015) 186 K/UL Delfino OrtaC W/AUTO [id number] 00:00:00* Test Item Value Reference Range Interpretation [...] (test code = 1015) 186 K/UL Delfino Endy OrtaCOMPREHENSIVE METABOLIC [id number] 00:00:00* Test Item Value Reference Range Interpretation Comme nts GLUCOSE (test code = 2217) 86 MG/DL BUN (test code = 2208) 16 MG/DL CREATININE (test code = 2214) 0.90 MG/DL eGFR AMER. (test cod e = 54331) 83 ML/MIN/1.73 eGFR NON- AMER. (test code = 82916) 71 ML/MIN/1.73 CALC BUN/CREAT (test code = [...] code = 2219) 29 U/L Delfino Schumacher YouC W/AUTO [id number] 00:00:00* Test Item Value Reference Range Interpretation [...] 1015) 186 K/UL Delfino Schumacher YouCOMPREHENSIVE METABOLIC [id number] 00:00:00* Test Item Value Reference Range Interpretation Comme nts GLUCOSE (test code = 2217) 86 MG/DL BUN (test code = 2208) 16 MG/DL CREATININE (test code = 2214) 0.90 MG/DL eGFR AMER. (test cod e = 95264) 83 ML/MIN/1.73 eGFR NON- AMER. (test code = 85267) 71 ML/MIN/1.73 CALC BUN/CREAT (test code = [...] code = 2219) 29 U/L [facility]elfino Schumacher [facility] [id number] 00:00:00* Test Item Value Reference Range Interpretation [...] code = 1015) 186 K/UL Delfino Schumacher [facility] W/AUTO [id number] 00:00:00* Test Item Value Reference Range Interpretation [...] (test code = 1016) (NOTE) Delfino Schumacher [facility] W/AUTO [id number] 00:00:00* Test Item Value Reference Range Interpretation [...] (test code = 1016) (NOTE) Delfino Schumacher [facility] W/AUTO [id number] 00:00:00* Test Item Value Reference Range Interpretation [...] code = 1016) (NOTE) Delfino OrtaCBC W/AUTO [id number] 00:00:00* Test Item Value Reference Range Interpretation [...] code = 1016) (NOTE) Delfino OrtaCBC W/AUTO [id number] 00:00:00* Test Item Value Reference Range Interpretation [...] code = 1016) (NOTE) Delfino OrtaCBC W/AUTO [id number] 00:00:00* Test Item Value Reference Range Interpretation [...] (test code = 1016) (NOTE) [facility] [id number] [facility]:00:00* Test Item Value Reference Range Interpretation [...] (test code = 1016) (NOTE) [facility] [id number] 00:00:00* Test Item Value Reference Range Interpretation [...] (test code = 1016) (NOTE) Delfino Schumacher [place] W/AUTO [id number] 00:00:00* Test Item Value Reference Range Interpretation [...] (test code = 1016) (NOTE) Delfino Schumacher [place] W/AUTO [id number] 00:00:00* Test Item Value Reference Range Interpretation [...] code = 1016) (NOTE) Delfino OrtaC W/AUTO [id number] 00:00:00* Test Item Value Reference Range Interpretation [...] COMMENTS (test code = 1016) (NOTE) [facility] [id number] 00:00:00* Test Item Value Reference Range Interpretation [...] (test code = 1016) (NOTE) CBC W/AUTO [id number] 00:00:00* Test Item Value Reference Range Interpretation [...] code = 1016) (NOTE) Delfino OrtaCBC W/AUTO [id number] 00:00:00* Test Item Value Reference Range Interpretation [...] (test code = 1016) (NOTE) CBC W/AUTO [id number] 00:00:00* Test Item Value Reference Range Interpretation [...] (test code = 1016) (NOTE) CBC W/AUTO [id number] 00:00:00* Test Item Value Reference Range Interpretation [...] (test code = 1016) (NOTE) CBC W/AUTO [id number] 00:00:00* Test Item Value Reference Range Interpretation [...] code = 1016) (NOTE) Delfino OrtaC W/AUTO [id number] 00:00:00* Test Item Value Reference Range Interpretation [...] COMMENTS (test code = 1016) (NOTE) [facility] [id number] 00:00:00* Test Item Value Reference Range Interpretation [...] COMMENTS (test code = 1016) (NOTE) [facility] [id number] 00:00:00* Test Item Value Reference Range Interpretation [...] COMMENTS (test code = 1016) (NOTE) [facility] [id number] 00:00:00* Test Item Value Reference Range Interpretation [...] COMMENTS (test code = 1016) (NOTE) [facility] [id number] 00:00:00* Test Item Value Reference Range Interpretation [...] (test code = 1016) (NOTE) Delfino Endy YouCBC W/AUTO [id number] 00:00:00* Test Item Value Reference Range Interpretation [...] = 1016) (NOTE) Delfino OrtaVAGINAL PATHOGENS DNA [id number] 00:00:00* Test Item Value Reference Range Interpretation Comme nts DIANNA SPECIES (test code = ) NEGATIVE G. VAGINALIS (test code = ) POSITIVE T. VAGINALIS (test code = ) NEGATIVE Delfino Schumacher YouCOMPREHENSIVE METABOLIC [id number] 00:00:00* Test Item Value Reference Range Interpretation Comme nts GLUCOSE (test code = 2217) 92 MG/DL BUN (test code = 2208) 20 MG/DL CREATININE (test code = 2214) 1.31 MG/DL eGFR AMER. (test cod e = 80722) 53 ML/MIN/1.73 eGFR NON- AMER. (test code = 93219) 45 ML/MIN/1.73 CALC BUN/CREAT (test code = [...] = 2219) 16 U/L Delfino OrtaCBC W/AUTO [id number] 00:00:00* Test Item Value Reference Range Interpretation [...] = 1016) (NOTE) Delfino OrtaVAGINAL PATHOGENS DNA [id number] 00:00:00* Test Item Value Reference Range Interpretation Comme nts DIANNA SPECIES (test code = ) NEGATIVE G. VAGINALIS (test code = ) POSITIVE T. VAGINALIS (test code = ) NEGATIVE Delfino OrtaCOMPREHENSIVE METABOLIC [id number] 00:00:00* Test Item Value Reference Range Interpretation Comme nts GLUCOSE (test code = 2217) 92 MG/DL BUN (test code = 2208) 20 MG/DL CREATININE (test code = 2214) 1.31 MG/DL eGFR AMER. (test cod e = 26470) 53 ML/MIN/1.73 eGFR NON- AMER. (test code = 51985) 45 ML/MIN/1.73 CALC BUN/CREAT (test code = [...] 2219) 16 U/L Delfino Schumacher YouCBC W/AUTO [id number] 00:00:00* Test Item Value Reference Range Interpretation [...] = 1016) (NOTE) Delfino OrtaVAGINAL PATHOGENS DNA [id number] 00:00:00* Test Item Value Reference Range Interpretation Comme nts DIANNA SPECIES (test code = ) NEGATIVE G. VAGINALIS (test code = ) POSITIVE T. VAGINALIS (test code = ) NEGATIVE Delfino OrtaCOMPREHENSIVE METABOLIC [id number] 00:00:00* Test Item Value Reference Range Interpretation Comme nts GLUCOSE (test code = 2217) 92 MG/DL BUN (test code = 2208) 20 MG/DL CREATININE (test code = 2214) 1.31 MG/DL eGFR AMER. (test cod e = 44841) 53 ML/MIN/1.73 eGFR NON- AMER. (test code = 17081) 45 ML/MIN/1.73 CALC BUN/CREAT (test code = [...] = 2219) 16 U/L Delfino OrtaCBC W/AUTO [id number] 00:00:00* Test Item Value Reference Range Interpretation [...] 1016) (NOTE) Delfino Schumacher AustinVAGINAL PATHOGENS DNA [id number] 00:00:00* Test Item Value Reference Range Interpretation Comme nts DIANNA SPECIES (test code = ) NEGATIVE G. VAGINALIS (test code = ) POSITIVE T. VAGINALIS (test code = ) NEGATIVE Delfino OrtaCOMPREHENSIVE METABOLIC [id number] 00:00:00* Test Item Value Reference Range Interpretation Comme nts GLUCOSE (test code = 2217) 92 MG/DL BUN (test code = 8) 20 MG/DL CREATININE (test code = 2214) 1.31 MG/DL eGFR AMER. (test cod e = 21225) 53 ML/MIN/1.73 eGFR NON- AMER. (test code = 98539) 45 ML/MIN/1.73 CALC BUN/CREAT (test code = [...] = 2219) 16 U/L Delfino OrtaCBC W/AUTO [id number] 00:00:00* Test Item Value Reference Range Interpretation [...] = 1016) (NOTE) Delfino OrtaVAGINAL PATHOGENS DNA [id number] 00:00:00* Test Item Value Reference Range Interpretation Comme nts DIANNA SPECIES (test code = ) NEGATIVE G. VAGINALIS (test code = ) POSITIVE T. VAGINALIS (test code = ) NEGATIVE Delfino OrtaCOMPREHENSIVE METABOLIC [id number] 00:00:00* Test Item Value Reference Range Interpretation Comme nts GLUCOSE (test code = 2217) 92 MG/DL BUN (test code = 2208) 20 MG/DL CREATININE (test code = 2214) 1.31 MG/DL eGFR AMER. (test cod e = 75138) 53 ML/MIN/1.73 eGFR NON- AMER. (test code = 47017) 45 ML/MIN/1.73 CALC BUN/CREAT (test code = [...] = 2219) 16 U/L Delfino OrtaCBC W/AUTO [id number] 00:00:00* Test Item Value Reference Range Interpretation [...] = 1016) (NOTE) Delfino OrtaVAGINAL PATHOGENS DNA [id number] 00:00:00* Test Item Value Reference Range Interpretation Comme nts DIANNA SPECIES (test code = ) NEGATIVE G. VAGINALIS (test code = ) POSITIVE T. VAGINALIS (test code = 21803) NEGATIVE Delfino OrtaCOMPREHENSIVE METABOLIC [id number] 00:00:00* Test Item Value Reference Range Interpretation Comme nts GLUCOSE (test code = 2217) 92 MG/DL BUN (test code = 2208) 20 MG/DL CREATININE (test code = 2214) 1.31 MG/DL eGFR AMER. (test cod e = 25192) 53 ML/MIN/1.73 eGFR NON- AMER. (test code = 58866) 45 ML/MIN/1.73 CALC BUN/CREAT (test code = [...] = 2219) 16 U/L Delfino OrtaCBC W/AUTO [id number] 00:00:00* Test Item Value Reference Range Interpretation [...] = 1016) (NOTE) Delfino OrtaVAGINAL PATHOGENS DNA [id number] 00:00:00* Test Item Value Reference Range Interpretation Comme nts DIANNA SPECIES (test code = ) NEGATIVE G. VAGINALIS (test code = ) POSITIVE T. VAGINALIS (test code = ) NEGATIVE Delfino OrtaCOMPREHENSIVE METABOLIC [id number] 00:00:00* Test Item Value Reference Range Interpretation Comme nts GLUCOSE (test code = 2217) 92 MG/DL BUN (test code = 2208) 20 MG/DL CREATININE (test code = 2214) 1.31 MG/DL eGFR AMER. (test cod e = 47603) 53 ML/MIN/1.73 eGFR NON- AMER. (test code = 36893) 45 ML/MIN/1.73 CALC BUN/CREAT (test code = [...] = 2219) 16 U/L Delfino OrtaCBC W/AUTO [id number] 00:00:00* Test Item Value Reference Range Interpretation [...] (test code = 1016) (NOTE) Delfino F AustinVAGINAL PATHOGENS DNA [id number] 00:00:00* Test Item Value Reference Range Interpretation Comme nts DIANNA SPECIES (test code = ) NEGATIVE G. VAGINALIS (test code = ) POSITIVE T. VAGINALIS (test code = ) NEGATIVE Delfino OrtaCOMPREHENSIVE METABOLIC [id number] 00:00:00* Test Item Value Reference Range Interpretation Comme nts GLUCOSE (test code = 2217) 92 MG/DL BUN (test code = 2208) 20 MG/DL CREATININE (test code = 2214) 1.31 MG/DL eGFR AMER. (test cod e = 79536) 53 ML/MIN/1.73 eGFR NON- AMER. (test code = 64628) 45 ML/MIN/1.73 CALC BUN/CREAT (test code = [...] = 2219) 16 U/L Delfino OrtaCBC W/AUTO [id number] 00:00:00* Test Item Value Reference Range Interpretation [...] 1016) (NOTE) Delfino Schumacher AustinVAGINAL PATHOGENS DNA [id number] 00:00:00* Test Item Value Reference Range Interpretation Comme nts DIANNA SPECIES (test code = ) NEGATIVE G. VAGINALIS (test code = ) POSITIVE T. VAGINALIS (test code = ) NEGATIVE Delfino OrtaCOMPREHENSIVE METABOLIC [id number] 00:00:00* Test Item Value Reference Range Interpretation Comme nts GLUCOSE (test code = 2217) 92 MG/DL BUN (test code = 2208) 20 MG/DL CREATININE (test code = 2214) 1.31 MG/DL eGFR AMER. (test cod e = 97629) 53 ML/MIN/1.73 eGFR NON- AMER. (test code = 36774) 45 ML/MIN/1.73 CALC BUN/CREAT (test code = [...] = 2219) 16 U/L Delfino OrtaCBC W/AUTO [id number] 00:00:00* Test Item Value Reference Range Interpretation [...] = 1016) (NOTE) Delfino OrtaVAGINAL PATHOGENS DNA [id number] 00:00:00* Test Item Value Reference Range Interpretation Comme nts DIANNA SPECIES (test code = ) NEGATIVE G. VAGINALIS (test code = ) POSITIVE T. VAGINALIS (test code = ) NEGATIVE Delfino OrtaCOMPREHENSIVE METABOLIC [id number] 00:00:00* Test Item Value Reference Range Interpretation Comme nts GLUCOSE (test code = 2217) 92 MG/DL BUN (test code = 2208) 20 MG/DL CREATININE (test code = 2214) 1.31 MG/DL eGFR AMER. (test cod e = 54955) 53 ML/MIN/1.73 eGFR NON- AMER. (test code = 37520) 45 ML/MIN/1.73 CALC BUN/CREAT (test code = [...] = 2219) 16 U/L Delfino OrtaCBC W/AUTO [id number] 00:00:00* Test Item Value Reference Range Interpretation [...] = 1016) (NOTE) Delfino OrtaVAGINAL PATHOGENS DNA [id number] 00:00:00* Test Item Value Reference Range Interpretation Comme nts DIANNA SPECIES (test code = 36976) NEGATIVE G. VAGINALIS (test code = ) POSITIVE T. VAGINALIS (test code = ) NEGATIVE Delfino OrtaCOMPREHENSIVE METABOLIC [id number] 00:00:00* Test Item Value Reference Range Interpretation Comme nts GLUCOSE (test code = 2217) 92 MG/DL BUN (test code = 2208) 20 MG/DL CREATININE (test code = 2214) 1.31 MG/DL eGFR AMER. (test cod e = 87148) 53 ML/MIN/1.73 eGFR NON- AMER. (test code = 64750) 45 ML/MIN/1.73 CALC BUN/CREAT (test code = [...] = 2219) 16 U/L Delfino OrtaCBC W/AUTO [id number] 00:00:00* Test Item Value Reference Range Interpretation [...] 1016) (NOTE) Delfino Schumacher YouVAGINAL PATHOGENS DNA [id number] 00:00:00* Test Item Value Reference Range Interpretation Comme nts DIANNA SPECIES (test code = ) NEGATIVE G. VAGINALIS (test code = 48251) POSITIVE T. VAGINALIS (test code = 10724) NEGATIVE VAGINAL PATHOGENS DNA [id number] 00:00:00* Test Item Value Reference Range Interpretation Comme nts DIANNA SPECIES (test code = 42445) NEGATIVE G. VAGINALIS (test code = 91124) POSITIVE T. VAGINALIS (test code = 65292) NEGATIVE Delfino OrtaCOMPREHENSIVE METABOLIC [id number] 00:00:00* Test Item Value Reference Range Interpretation Comme nts GLUCOSE (test code = 2217) 92 MG/DL BUN (test code = 2208) 20 MG/DL CREATININE (test code = 2214) 1.31 MG/DL eGFR AMER. (test cod e = 31204) 53 ML/MIN/1.73 eGFR NON- AMER. (test code = 32397) 45 ML/MIN/1.73 CALC BUN/CREAT (test code = [...] code = 2219) 16 U/L CBC W/AUTO [id number] 00:00:00* Test Item Value Reference Range Interpretation [...] code = 1016) (NOTE) VAGINAL PATHOGENS DNA [id number] 00:00:00* Test Item Value Reference Range Interpretation Comme nts DIANNA SPECIES (test code = ) NEGATIVE G. VAGINALIS (test code = ) POSITIVE T. VAGINALIS (test code = ) NEGATIVE COMPREHENSIVE METABOLIC [id number] 00:00:00* Test Item Value Reference Range Interpretation Comme nts GLUCOSE (test code = 2217) 92 MG/DL BUN (test code = 2208) 20 MG/DL CREATININE (test code = 2214) 1.31 MG/DL eGFR AMER. (test cod e = 38151) 53 ML/MIN/1.73 eGFR NON- AMER. (test code = 09172) 45 ML/MIN/1.73 CALC BUN/CREAT (test code = [...] code = 2219) 16 U/L CBC W/AUTO [id number] 00:00:00* Test Item Value Reference Range Interpretation [...] code = 1016) (NOTE) VAGINAL PATHOGENS DNA [id number] 00:00:00* Test Item Value Reference Range Interpretation Comme nts DIANNA SPECIES (test code = ) NEGATIVE G. VAGINALIS (test code = ) POSITIVE T. VAGINALIS (test code = ) NEGATIVE COMPREHENSIVE METABOLIC [id number] 00:00:00* Test Item Value Reference Range Interpretation Comme nts GLUCOSE (test code = 2217) 92 MG/DL BUN (test code = 2208) 20 MG/DL CREATININE (test code = 2214) 1.31 MG/DL eGFR AMER. (test cod e = 22692) 53 ML/MIN/1.73 eGFR NON- AMER. (test code = 04322) 45 ML/MIN/1.73 CALC BUN/CREAT (test code = [...] code = 2219) 16 U/L CBC W/AUTO [id number] 00:00:00* Test Item Value Reference Range Interpretation [...] code = 1016) (NOTE) VAGINAL PATHOGENS DNA [id number] 00:00:00* Test Item Value Reference Range Interpretation Comme nts DIANNA SPECIES (test code = ) NEGATIVE G. VAGINALIS (test code = ) POSITIVE T. VAGINALIS (test code = ) NEGATIVE COMPREHENSIVE METABOLIC [id number] 00:00:00* Test Item Value Reference Range Interpretation Comme nts GLUCOSE (test code = 2217) 92 MG/DL BUN (test code = 2208) 20 MG/DL CREATININE (test code = 2214) 1.31 MG/DL eGFR AMER. (test cod e = 25468) 53 ML/MIN/1.73 eGFR NON- AMER. (test code = 86359) 45 ML/MIN/1.73 CALC BUN/CREAT (test code = [...] code = 2219) 16 U/L CBC W/AUTO [id number] 00:00:00* Test Item Value Reference Range Interpretation [...] (test code = 1016) (NOTE) COMPREHENSIVE METABOLIC [id number] 00:00:00* Test Item Value Reference Range Interpretation Comme nts GLUCOSE (test code = 2217) 92 MG/DL BUN (test code = 2208) 20 MG/DL CREATININE (test code = 2214) 1.31 MG/DL eGFR AMER. (test cod e = 28671) 53 ML/MIN/1.73 eGFR NON- AMER. (test code = 23009) 45 ML/MIN/1.73 CALC BUN/CREAT (test code = [...] (test code = 2219) 16 U/L Delfino Forbes W/AUTO [id number] 00:00:00* Test Item Value Reference Range Interpretation [...] (test code = 1016) (NOTE) Delfino Endy AustinVAGINAL PATHOGENS DNA [id number] 00:00:00* Test Item Value Reference Range Interpretation Comme nts DIANNA SPECIES (test code = 78482) NEGATIVE G. VAGINALIS (test code = 03829) POSITIVE T. VAGINALIS (test code = 86751) NEGATIVE Delfino Schumacher AustinVAGINAL PATHOGENS DNA [id number] 00:00:00* Test Item Value Reference Range Interpretation Comme nts DIANNA SPECIES (test code = 12737) NEGATIVE G. VAGINALIS (test code = 97171) POSITIVE T. VAGINALIS (test code = 98340) NEGATIVE Delfino OrtaCOMPREHENSIVE METABOLIC [id number] 00:00:00* Test Item Value Reference Range Interpretation Comme nts GLUCOSE (test code = 2217) 92 MG/DL BUN (test code = 2208) 20 MG/DL CREATININE (test code = 2214) 1.31 MG/DL eGFR AMER. (test cod e = 02528) 53 ML/MIN/1.73 eGFR NON- AMER. (test code = 77042) 45 ML/MIN/1.73 CALC BUN/CREAT (test code = [...] 2219) 16 U/L Delfino Endy YouCBC W/AUTO [id number] 00:00:00* Test Item Value Reference Range Interpretation [...] = 1016) (NOTE) Delfino OrtaVAGINAL PATHOGENS DNA [id number] 00:00:00* Test Item Value Reference Range Interpretation Comme nts DIANNA SPECIES (test code = ) NEGATIVE G. VAGINALIS (test code = ) POSITIVE T. VAGINALIS (test code = ) NEGATIVE Delfino F YouCOMPREHENSIVE METABOLIC [id number] 00:00:00* Test Item Value Reference Range Interpretation Comme nts GLUCOSE (test code = 2217) 92 MG/DL BUN (test code = 2208) 20 MG/DL CREATININE (test code = 2214) 1.31 MG/DL eGFR AMER. (test cod e = 39029) 53 ML/MIN/1.73 eGFR NON- AMER. (test code = 68598) 45 ML/MIN/1.73 CALC BUN/CREAT (test code = [...] = 2219) 16 U/L Delfino OrtaCBC W/AUTO [id number] 00:00:00* Test Item Value Reference Range Interpretation [...] = 1016) (NOTE) Delfino OrtaVAGINAL PATHOGENS DNA [id number] 00:00:00* Test Item Value Reference Range Interpretation Comme nts DIANNA SPECIES (test code = ) NEGATIVE G. VAGINALIS (test code = ) POSITIVE T. VAGINALIS (test code = ) NEGATIVE Delfino Schumacher AustinCOMPREHENSIVE METABOLIC [id number] 00:00:00* Test Item Value Reference Range Interpretation Comme nts GLUCOSE (test code = 2217) 92 MG/DL BUN (test code = 2208) 20 MG/DL CREATININE (test code = 2214) 1.31 MG/DL eGFR AMER. (test cod e = 71021) 53 ML/MIN/1.73 eGFR NON- AMER. (test code = 95853) 45 ML/MIN/1.73 CALC BUN/CREAT (test code = [...] code = 2219) 16 U/L Delfino Schumacher WimaumaCOMPREHENSIVE METABOLIC [id number] 00:00:00* Test Item Value Reference Range Interpretation Comme nts GLUCOSE (test code = 2217) 92 MG/DL BUN (test code = 2208) 20 MG/DL CREATININE (test code = 2214) 1.31 MG/DL eGFR AMER. (test cod e = 25213) 53 ML/MIN/1.73 eGFR NON- AMER. (test code = 53304) 45 ML/MIN/1.73 CALC BUN/CREAT (test code = [...] = 2219) 16 U/L Delfino OrtaCBC W/AUTO [id number] 00:00:00* Test Item Value Reference Range Interpretation [...] 1016) (NOTE) Delfino Schumacher YouVAGINAL PATHOGENS DNA [id number] 00:00:00* Test Item Value Reference Range Interpretation Comme nts DIANNA SPECIES (test code = ) NEGATIVE G. VAGINALIS (test code = 60714) POSITIVE T. VAGINALIS (test code = 66647) NEGATIVE Delfino OrtaCOMPREHENSIVE METABOLIC [id number] 00:00:00* Test Item Value Reference Range Interpretation Comme nts GLUCOSE (test code = 2217) 92 MG/DL BUN (test code = 2208) 20 MG/DL CREATININE (test code = 2214) 1.31 MG/DL eGFR AMER. (test cod e = 92644) 53 ML/MIN/1.73 eGFR NON- AMER. (test code = 14478) 45 ML/MIN/1.73 CALC BUN/CREAT (test code = [...] = 2219) 16 U/L Delfino OrtaCOMPREHENSIVE METABOLIC [id number] 00:00:00* Test Item Value Reference Range Interpretation Comme nts GLUCOSE (test code = 2217) 95 MG/DL BUN (test code = 2208) 21 MG/DL CREATININE (test code = 2214) 0.87 MG/DL eGFR AMER. (test cod e = 66670) 87 ML/MIN/1.73 eGFR NON- AMER. (test code = 80124) 75 ML/MIN/1.73 CALC BUN/CREAT (test code = [...] code = 2219) 8 U/L Delfino OrtaURIC [id number] 00:00:00* Test Item Value Reference Range Interpretation Comme nts URIC ACID (test code = 2233) 8.5 MG/DL Delfino OrtaVITAMIN [id number] 00:00:00* Test Item Value Reference Range Interpretation Comme car[facility]ito VITAMIN B-12 (test code = 2840) 335 PG/ML Delfino OrtaCBC W/AUTO [id number] 00:00:00* Test Item Value Reference Range Interpretation [...] code = 1015) 212 K/UL Delfino OrtaLIPID [id number] 00:00:00* Test Item Value Reference Range Interpretation Comme nts CHOLESTEROL (test code = 2210) 141 MG/DL TRIGLYCERIDES (test code = 2232) 71 MG/DL HDL CHOLESTEROL (test code = 2220) 69 MG/DL CALC LDL CHOL (test code = 2237) 58 MG/DL RISK RATIO LDL/HDL (test cod e = 2238) 0.84 RATIO Delfino OrtaURIC [id number] 00:00:00* Test Item Value Reference Range Interpretation Comme nts URIC ACID (test code = 2233) 8.5 MG/DL Delfino OrtaCOMPREHENSIVE METABOLIC [id number] 00:00:00* Test Item Value Reference Range Interpretation Comme nts GLUCOSE (test code = 2217) 95 MG/DL BUN (test code = 2208) 21 MG/DL CREATININE (test code = 2214) 0.87 MG/DL eGFR AMER. (test cod e = 15079) 87 ML/MIN/1.73 eGFR NON- AMER. (test code = 61163) 75 ML/MIN/1.73 CALC BUN/CREAT (test code = [...] code = 2219) 8 U/L Delfino OrtaURIC [id number] 00:00:00* Test Item Value Reference Range Interpretation Comme [facility] URIC ACID (test code = 2233) 8.5 MG/DL Delfino OrtaVITAMIN [id number] 00:00:00* Test Item Value Reference Range Interpretation Comme [facility] VITAMIN B-12 (test code = 2840) 335 PG/ML Delfino OrtaCBC W/AUTO [id number] 00:00:00* Test Item Value Reference Range Interpretation [...] code = 1015) 212 K/UL Delfino OrtaVITAMIN [id number] 00:00:00* Test Item Value Reference Range Interpretation Comme nts VITAMIN B-12 (test code = 2840) 335 PG/ML Delfino OrtaLIPID [id number] 00:00:00* Test Item Value Reference Range Interpretation Comme nts CHOLESTEROL (test code = 2210) 141 MG/DL TRIGLYCERIDES (test code = 2232) 71 MG/DL HDL CHOLESTEROL (test code = 2220) 69 MG/DL CALC LDL CHOL (test code = 2237) 58 MG/DL RISK RATIO LDL/HDL (test cod e = 2238) 0.84 RATIO Delfino OrtaCOMPREHENSIVE METABOLIC [id number] 00:00:00* Test Item Value Reference Range Interpretation Comme nts GLUCOSE (test code = 2217) 95 MG/DL BUN (test code = 2208) 21 MG/DL CREATININE (test code = 2214) 0.87 MG/DL eGFR AMER. (test cod e = 35441) 87 ML/MIN/1.73 eGFR NON- AMER. (test code = 68022) 75 ML/MIN/1.73 CALC BUN/CREAT (test code = [...] code = 2219) 8 U/L Delfino OrtaURIC [id number] 00:00:00* Test Item Value Reference Range Interpretation Comme [facility] URIC ACID (test code = 2233) 8.5 MG/DL Delfino OrtaVITAMIN [id number] 00:00:00* Test Item Value Reference Range Interpretation Comme car[facility] VITAMIN B-12 (test code = 2840) 335 PG/ML Delfino OrtaCBC W/AUTO [id number] 00:00:00* Test Item Value Reference Range Interpretation [...] code = 1015) 212 K/UL Delfino OrtaLIPID [id number] 00:00:00* Test Item Value Reference Range Interpretation Comme nts CHOLESTEROL (test code = 2210) 141 MG/DL TRIGLYCERIDES (test code = 2232) 71 MG/DL HDL CHOLESTEROL (test code = 2220) 69 MG/DL CALC LDL CHOL (test code = 2237) 58 MG/DL RISK RATIO LDL/HDL (test cod e = 2238) 0.84 RATIO Delfino OrtaCOMPREHENSIVE METABOLIC [id number] 00:00:00* Test Item Value Reference Range Interpretation Comme nts GLUCOSE (test code = 2217) 95 MG/DL BUN (test code = 2208) 21 MG/DL CREATININE (test code = 2214) 0.87 MG/DL eGFR AMER. (test cod e = 65136) 87 ML/MIN/1.73 eGFR NON- AMER. (test code = 66959) 75 ML/MIN/1.73 CALC BUN/CREAT (test code = [...] 220) 83 U/L AST (test code = 221) 27 U/L ALT (test code = 2219) 8 U/L Delfino OrtaURIC [id number] 00:00:00* Test Item Value Reference Range Interpretation Comme [facility] URIC ACID (test code = 2233) 8.5 MG/DL Delfino OrtaVITAMIN [id number] 00:00:00* Test Item Value Reference Range Interpretation Comme [facility] VITAMIN B-12 (test code = 2840) 335 PG/ML Delfino OrtaCBC W/AUTO [id number] 00:00:00* Test Item Value Reference Range Interpretation [...] code = 1015) 212 K/UL Delfino OrtaLIPID [id number] 00:00:00* Test Item Value Reference Range Interpretation Comme nts CHOLESTEROL (test code = 2210) 141 MG/DL TRIGLYCERIDES (test code = 2232) 71 MG/DL HDL CHOLESTEROL (test code = 2220) 69 MG/DL CALC LDL CHOL (test code = 2237) 58 MG/DL RISK RATIO LDL/HDL (test cod e = 2238) 0.84 RATIO Delfino OrtaCOMPREHENSIVE METABOLIC [id number] 00:00:00* Test Item Value Reference Range Interpretation Comme nts GLUCOSE (test code = 2217) 95 MG/DL BUN (test code = 2208) 21 MG/DL CREATININE (test code = 2214) 0.87 MG/DL eGFR AMER. (test cod e = 93729) 87 ML/MIN/1.73 eGFR NON- AMER. (test code = 14129) 75 ML/MIN/1.73 CALC BUN/CREAT (test code = [...] code = 2219) 8 U/L Delfino OrtaURIC [id number] 00:00:00* Test Item Value Reference Range Interpretation Comme nts URIC ACID (test code = 2233) 8.5 MG/DL Delfino OrtaVITAMIN [id number] 00:00:00* Test Item Value Reference Range Interpretation Comme nts VITAMIN B-12 (test code = 2840) 335 PG/ML Delfino OrtaCBC W/AUTO [id number] 00:00:00* Test Item Value Reference Range Interpretation [...] = 1015) 212 K/UL Delfino Schumacher AustinLIPID [id number] 00:00:00* Test Item Value Reference Range Interpretation Comme nts CHOLESTEROL (test code = 2210) 141 MG/DL TRIGLYCERIDES (test code = 2232) 71 MG/DL HDL CHOLESTEROL (test code = 2220) 69 MG/DL CALC LDL CHOL (test code = 2237) 58 MG/DL RISK RATIO LDL/HDL (test cod e = 2238) 0.84 RATIO Delfino Schumacher YouCOMPREHENSIVE METABOLIC [id number] 00:00:00* Test Item Value Reference Range Interpretation Comme nts GLUCOSE (test code = 2217) 95 MG/DL BUN (test code = 2208) 21 MG/DL CREATININE (test code = 2214) 0.87 MG/DL eGFR AMER. (test cod e = 99866) 87 ML/MIN/1.73 eGFR NON- AMER. (test code = 26411) 75 ML/MIN/1.73 CALC BUN/CREAT (test code = [...] code = 2219) 8 U/L Delfino OrtaURIC [id number] 00:00:00* Test Item Value Reference Range Interpretation Comme nts URIC ACID (test code = 2233) 8.5 MG/DL Delfino OrtaVITAMIN [id number] 00:00:00* Test Item Value Reference Range Interpretation Comme [facility] VITAMIN B-12 (test code = 2840) 335 PG/ML Delfino OrtaCBC W/AUTO [id number] 00:00:00* Test Item Value Reference Range Interpretation [...] code = 1015) 212 K/UL Delfino OrtaLIPID [id number] 00:00:00* Test Item Value Reference Range Interpretation Comme nts CHOLESTEROL (test code = 2210) 141 MG/DL TRIGLYCERIDES (test code = 2232) 71 MG/DL HDL CHOLESTEROL (test code = 2220) 69 MG/DL CALC LDL CHOL (test code = 2237) 58 MG/DL RISK RATIO LDL/HDL (test cod e = 2238) 0.84 RATIO Delfino OrtaCOMPREHENSIVE METABOLIC [id number] 00:00:00* Test Item Value Reference Range Interpretation Comme nts GLUCOSE (test code = 2217) 95 MG/DL BUN (test code = 2208) 21 MG/DL CREATININE (test code = 2214) 0.87 MG/DL eGFR AMER. (test cod e = 24171) 87 ML/MIN/1.73 eGFR NON- AMER. (test code = 50996) 75 ML/MIN/1.73 CALC BUN/CREAT (test code = [...] code = 2219) 8 U/L Delfino OrtaURIC [id number] 00:00:00* Test Item Value Reference Range Interpretation Comme nts URIC ACID (test code = 2233) 8.5 MG/DL Delfino OrtaVITAMIN [id number] 00:00:00* Test Item Value Reference Range Interpretation Comme [facility] VITAMIN B-12 (test code = 2840) 335 PG/ML Delfino OrtaCBC W/AUTO [id number] 00:00:00* Test Item Value Reference Range Interpretation [...] code = 1015) 212 K/UL Delfino OrtaLIPID [id number] 00:00:00* Test Item Value Reference Range Interpretation Comme nts CHOLESTEROL (test code = 2210) 141 MG/DL TRIGLYCERIDES (test code = 2232) 71 MG/DL HDL CHOLESTEROL (test code = 2220) 69 MG/DL CALC LDL CHOL (test code = 2237) 58 MG/DL RISK RATIO LDL/HDL (test cod e = 2238) 0.84 RATIO Delfino OrtaCOMPREHENSIVE METABOLIC [id number] 00:00:00* Test Item Value Reference Range Interpretation Comme nts GLUCOSE (test code = 2217) 95 MG/DL BUN (test code = 2208) 21 MG/DL CREATININE (test code = 2214) 0.87 MG/DL eGFR AMER. (test cod e = 92712) 87 ML/MIN/1.73 eGFR NON- AMER. (test code = 77246) 75 ML/MIN/1.73 CALC BUN/CREAT (test code = [...] code = 2219) 8 U/L Delfino OrtaURIC [id number] 00:00:00* Test Item Value Reference Range Interpretation Comme nts URIC ACID (test code = 2233) 8.5 MG/DL Delfino OrtaVITAMIN [id number] 00:00:00* Test Item Value Reference Range Interpretation Comme [facility] VITAMIN B-12 (test code = 2840) 335 PG/ML Delfino OrtaCBC W/AUTO [id number] 00:00:00* Test Item Value Reference Range Interpretation [...] code = 1015) 212 K/UL Delfino OrtaLIPID [id number] 00:00:00* Test Item Value Reference Range Interpretation Comme nts CHOLESTEROL (test code = 2210) 141 MG/DL TRIGLYCERIDES (test code = 2232) 71 MG/DL HDL CHOLESTEROL (test code = 2220) 69 MG/DL CALC LDL CHOL (test code = 2237) 58 MG/DL RISK RATIO LDL/HDL (test cod e = 2238) 0.84 RATIO Delfino OrtaCOMPREHENSIVE METABOLIC [id number] 00:00:00* Test Item Value Reference Range Interpretation Comme nts GLUCOSE (test code = 2217) 95 MG/DL BUN (test code = 2208) 21 MG/DL CREATININE (test code = 2214) 0.87 MG/DL eGFR AMER. (test cod e = 84414) 87 ML/MIN/1.73 eGFR NON- AMER. (test code = 21549) 75 ML/MIN/1.73 CALC BUN/CREAT (test code = [...] code = 2219) 8 U/L Delfino OrtaURIC [id number] 00:00:00* Test Item Value Reference Range Interpretation Comme [facility] URIC ACID (test code = 2233) 8.5 MG/DL Delfino OrtaVITAMIN [id number] 00:00:00* Test Item Value Reference Range Interpretation Comme [facility] VITAMIN B-12 (test code = 2840) 335 PG/ML Delfino OrtaCBC W/AUTO [id number] 00:00:00* Test Item Value Reference Range Interpretation [...] code = 1015) 212 K/UL Delfino OrtaLIPID [id number] 00:00:00* Test Item Value Reference Range Interpretation Comme nts CHOLESTEROL (test code = 2210) 141 MG/DL TRIGLYCERIDES (test code = 2232) 71 MG/DL HDL CHOLESTEROL (test code = 2220) 69 MG/DL CALC LDL CHOL (test code = 2237) 58 MG/DL RISK RATIO LDL/HDL (test cod e = 2238) 0.84 RATIO Delfino OrtaCOMPREHENSIVE METABOLIC [id number] 00:00:00* Test Item Value Reference Range Interpretation Comme nts GLUCOSE (test code = 2217) 95 MG/DL BUN (test code = 2208) 21 MG/DL CREATININE (test code = 2214) 0.87 MG/DL eGFR AMER. (test cod e = 87972) 87 ML/MIN/1.73 eGFR NON- AMER. (test code = 96131) 75 ML/MIN/1.73 CALC BUN/CREAT (test code = [...] code = 2219) 8 U/L Delfino OrtaURIC [id number] 00:00:00* Test Item Value Reference Range Interpretation Comme nts URIC ACID (test code = 2233) 8.5 MG/DL Delfino OrtaVITAMIN [id number] 00:00:00* Test Item Value Reference Range Interpretation Comme nts VITAMIN B-12 (test code = 2840) 335 PG/ML Delfino OrtaCBC W/AUTO [id number] 00:00:00* Test Item Value Reference Range Interpretation [...] code = 1015) 212 K/UL Delfino OrtaLIPID [id number] 00:00:00* Test Item Value Reference Range Interpretation Comme nts CHOLESTEROL (test code = 2210) 141 MG/DL TRIGLYCERIDES (test code = 2232) 71 MG/DL HDL CHOLESTEROL (test code = 2220) 69 MG/DL CALC LDL CHOL (test code = 2237) 58 MG/DL RISK RATIO LDL/HDL (test cod e = 2238) 0.84 RATIO Delfino OrtaCOMPREHENSIVE METABOLIC [id number] 00:00:00* Test Item Value Reference Range Interpretation Comme nts GLUCOSE (test code = 2217) 95 MG/DL BUN (test code = 2208) 21 MG/DL CREATININE (test code = 2214) 0.87 MG/DL eGFR AMER. (test cod e = 56176) 87 ML/MIN/1.73 eGFR NON- AMER. (test code = 37866) 75 ML/MIN/1.73 CALC BUN/CREAT (test code = [...] code = 2219) 8 U/L Delfino OrtaURIC [id number] 00:00:00* Test Item Value Reference Range Interpretation Comme nts URIC ACID (test code = 2233) 8.5 MG/DL Delfino OrtaVITAMIN [id number] 00:00:00* Test Item Value Reference Range Interpretation Comme nts VITAMIN B-12 (test code = 2840) 335 PG/ML Delfino OrtaCBC W/AUTO [id number] 00:00:00* Test Item Value Reference Range Interpretation [...] code = 1015) 212 K/UL Delfino OrtaLIPID [id number] 00:00:00* Test Item Value Reference Range Interpretation Comme nts CHOLESTEROL (test code = 2210) 141 MG/DL TRIGLYCERIDES (test code = 2232) 71 MG/DL HDL CHOLESTEROL (test code = 2220) 69 MG/DL CALC LDL CHOL (test code = 2237) 58 MG/DL RISK RATIO LDL/HDL (test cod e = 2238) 0.84 RATIO Delfino OrtaCOMPREHENSIVE METABOLIC [id number] 00:00:00* Test Item Value Reference Range Interpretation Comme nts GLUCOSE (test code = 2217) 95 MG/DL BUN (test code = 2208) 21 MG/DL CREATININE (test code = 2214) 0.87 MG/DL eGFR AMER. (test cod e = 36322) 87 ML/MIN/1.73 eGFR NON- AMER. (test code = 14417) 75 ML/MIN/1.73 CALC BUN/CREAT (test code = [...] code = 2219) 8 U/L Delfino Schumacher YouURIC [id number] 00:00:00* Test Item Value Reference Range Interpretation Comme nts URIC ACID (test code = 2233) 8.5 MG/DL Delfino OrtaCBC W/AUTO [id number] 00:00:00* Test Item Value Reference Range Interpretation [...] COUNT (test code = 1015) 212 K/UL VITAMIN [id number] 00:00:00* Test Item Value Reference Range Interpretation Comme nts VITAMIN B-12 (test code = 2840) 335 PG/ML Delfino OrtaCBC W/AUTO [id number] 00:00:00* Test Item Value Reference Range Interpretation [...] code = 1015) 212 K/UL Delfino OrtaLIPID [id number] 00:00:00* Test Item Value Reference Range Interpretation Comme nts CHOLESTEROL (test code = 2210) 141 MG/DL TRIGLYCERIDES (test code = 2232) 71 MG/DL HDL CHOLESTEROL (test code = 2220) 69 MG/DL CALC LDL CHOL (test code = 2237) 58 MG/DL RISK RATIO LDL/HDL (test cod e = 2238) 0.84 RATIO LIPID [id number] 00:00:00* Test Item Value Reference Range Interpretation Comme nts CHOLESTEROL (test code = 2210) 141 MG/DL TRIGLYCERIDES (test code = 2232) 71 MG/DL HDL CHOLESTEROL (test code = 2220) 69 MG/DL CALC LDL CHOL (test code = 2237) 58 MG/DL RISK RATIO LDL/HDL (test cod e = 2238) 0.84 RATIO Delfino OrtaCOMPREHENSIVE METABOLIC [id number] 00:00:00* Test Item Value Reference Range Interpretation Comme nts GLUCOSE (test code = 2217) 95 MG/DL BUN (test code = 2208) 21 MG/DL CREATININE (test code = 2214) 0.87 MG/DL eGFR AMER. (test cod e = 45207) 87 ML/MIN/1.73 eGFR NON- AMER. (test code = 74484) 75 ML/MIN/1.73 CALC BUN/CREAT (test code = [...] (test code = 2219) 8 U/L URIC [id number] 00:00:00* Test Item Value Reference Range Interpretation Comme [facility] URIC ACID (test code = 2233) 8.5 MG/DL VITAMIN [id number] 00:00:00* Test Item Value Reference Range Interpretation Comme nts VITAMIN B-12 (test code = 2840) 335 PG/ML CBC W/AUTO [id number] 00:00:00* Test Item Value Reference Range Interpretation [...] (test code = 1015) 212 K/UL LIPID [id number] 00:00:00* Test Item Value Reference Range Interpretation Comme nts CHOLESTEROL (test code = 2210) 141 MG/DL TRIGLYCERIDES (test code = 2232) 71 MG/DL HDL CHOLESTEROL (test code = 2220) 69 MG/DL CALC LDL CHOL (test code = 2237) 58 MG/DL RISK RATIO LDL/HDL (test cod e = 2238) 0.84 RATIO COMPREHENSIVE METABOLIC [id number] 00:00:00* Test Item Value Reference Range Interpretation Comme nts GLUCOSE (test code = 2217) 95 MG/DL BUN (test code = 2208) 21 MG/DL CREATININE (test code = 2214) 0.87 MG/DL eGFR AMER. (test cod e = 05046) 87 ML/MIN/1.73 eGFR NON- AMER. (test code = 74776) 75 ML/MIN/1.73 CALC BUN/CREAT (test code = [...] (test code = 2219) 8 U/L URIC [id number] 00:00:00* Test Item Value Reference Range Interpretation Comme nts URIC ACID (test code = 2233) 8.5 MG/DL VITAMIN [id number] 00:00:00* Test Item Value Reference Range Interpretation Comme nts VITAMIN B-12 (test code = 2840) 335 PG/ML CBC W/AUTO [id number] 00:00:00* Test Item Value Reference Range Interpretation [...] (test code = 1015) 212 K/UL LIPID [id number] 00:00:00* Test Item Value Reference Range Interpretation Comme nts CHOLESTEROL (test code = 2210) 141 MG/DL TRIGLYCERIDES (test code = 2232) 71 MG/DL HDL CHOLESTEROL (test code = 2220) 69 MG/DL CALC LDL CHOL (test code = 2237) 58 MG/DL RISK RATIO LDL/HDL (test cod e = 2238) 0.84 RATIO COMPREHENSIVE METABOLIC [id number] 00:00:00* Test Item Value Reference Range Interpretation Comme nts GLUCOSE (test code = 2217) 95 MG/DL BUN (test code = 2208) 21 MG/DL CREATININE (test code = 2214) 0.87 MG/DL eGFR AMER. (test cod e = 82688) 87 ML/MIN/1.73 eGFR NON- AMER. (test code = 24152) 75 ML/MIN/1.73 CALC BUN/CREAT (test code = [...] (test code = 2219) 8 U/L URIC [id number] 00:00:00* Test Item Value Reference Range Interpretation Comme nts URIC ACID (test code = 2233) 8.5 MG/DL VITAMIN [id number] 00:00:00* Test Item Value Reference Range Interpretation Comme nts VITAMIN B-12 (test code = 2840) 335 PG/ML CBC W/AUTO [id number] 00:00:00* Test Item Value Reference Range Interpretation [...] (test code = 1015) 212 K/UL LIPID [id number] 00:00:00* Test Item Value Reference Range Interpretation Comme nts CHOLESTEROL (test code = 2210) 141 MG/DL TRIGLYCERIDES (test code = 2232) 71 MG/DL HDL CHOLESTEROL (test code = 2220) 69 MG/DL CALC LDL CHOL (test code = 2237) 58 MG/DL RISK RATIO LDL/HDL (test cod e = 2238) 0.84 RATIO COMPREHENSIVE METABOLIC [id number] 00:00:00* Test Item Value Reference Range Interpretation Comme nts GLUCOSE (test code = 2217) 95 MG/DL BUN (test code = 2208) 21 MG/DL CREATININE (test code = 2214) 0.87 MG/DL eGFR AMER. (test cod e = 36336) 87 ML/MIN/1.73 eGFR NON- AMER. (test code = 40350) 75 ML/MIN/1.73 CALC BUN/CREAT (test code = [...] (test code = 2219) 8 U/L URIC [id number] 00:00:00* Test Item Value Reference Range Interpretation Comme [facility] URIC ACID (test code = 2233) 8.5 MG/DL VITAMIN [id number] 00:00:00* Test Item Value Reference Range Interpretation Comme [facility] VITAMIN B-12 (test code = 2840) 335 PG/ML CBC W/AUTO [id number] 00:00:00* Test Item Value Reference Range Interpretation Comme [facility] WBC (test code = 1001) 2.9 K/UL [...] = 1015) 212 K/UL Delfino OrtaCOMPREHENSIVE METABOLIC [id number] 00:00:00* Test Item Value Reference Range Interpretation Comme nts GLUCOSE (test code = 2217) 95 MG/DL BUN (test code = 2208) 21 MG/DL CREATININE (test code = 2214) 0.87 MG/DL eGFR AMER. (test cod e = 12943) 87 ML/MIN/1.73 eGFR NON- AMER. (test code = 79740) 75 ML/MIN/1.73 CALC BUN/CREAT (test code = [...] code = 2219) 8 U/L Delfino OrtaURIC [id number] 00:00:00* Test Item Value Reference Range Interpretation Comme nts URIC ACID (test code = 2233) 8.5 MG/DL Delfino OrtaVITAMIN [id number] 00:00:00* Test Item Value Reference Range Interpretation Comme carlito VITAMIN B-12 (test code = 2840) 335 PG/ML Delfino OrtaCBC W/AUTO [id number] 00:00:00* Test Item Value Reference Range Interpretation [...] code = 1015) 212 K/UL Delfino Schumacher WimaumaLIPID [id number] 00:00:00* Test Item Value Reference Range Interpretation Comme nts CHOLESTEROL (test code = 2210) 141 MG/DL TRIGLYCERIDES (test code = 2232) 71 MG/DL HDL CHOLESTEROL (test code = 2220) 69 MG/DL CALC LDL CHOL (test code = 2237) 58 MG/DL RISK RATIO LDL/HDL (test cod e = 2238) 0.84 RATIO Delfino OrtaCOMPREHENSIVE METABOLIC [id number] 00:00:00* Test Item Value Reference Range Interpretation Comme nts GLUCOSE (test code = 2217) 95 MG/DL BUN (test code = 2208) 21 MG/DL CREATININE (test code = 2214) 0.87 MG/DL eGFR AMER. (test cod e = 79492) 87 ML/MIN/1.73 eGFR NON- AMER. (test code = 69388) 75 ML/MIN/1.73 CALC BUN/CREAT (test code = [...] code = 2219) 8 U/L Delfino OrtaURIC [id number] 00:00:00* Test Item Value Reference Range Interpretation Comme carlito URIC ACID (test code = 2233) 8.5 MG/DL Delfino OrtaVITAMIN [id number] 00:00:00* Test Item Value Reference Range Interpretation Comme carlito VITAMIN B-12 (test code = 2840) 335 PG/ML Delfino OrtaCBC W/AUTO [id number] 00:00:00* Test Item Value Reference Range Interpretation [...] (test code = 1015) 212 K/UL Delfion OrtaLIPID [id number] 00:00:00* Test Item Value Reference Range Interpretation Comme nts CHOLESTEROL (test code = 2210) 141 MG/DL TRIGLYCERIDES (test code = 2232) 71 MG/DL HDL CHOLESTEROL (test code = 2220) 69 MG/DL CALC LDL CHOL (test code = 2237) 58 MG/DL RISK RATIO LDL/HDL (test cod e = 2238) 0.84 RATIO Delfino OrtaLIPID [id number] 00:00:00* Test Item Value Reference Range Interpretation Comme nts CHOLESTEROL (test code = 2210) 141 MG/DL TRIGLYCERIDES (test code = 2232) 71 MG/DL HDL CHOLESTEROL (test code = 2220) 69 MG/DL CALC LDL CHOL (test code = 2237) 58 MG/DL RISK RATIO LDL/HDL (test cod e = 2238) 0.84 RATIO Delfino OrtaCOMPREHENSIVE METABOLIC [id number] 00:00:00* Test Item Value Reference Range Interpretation Comme nts GLUCOSE (test code = 2217) 95 MG/DL BUN (test code = 2208) 21 MG/DL CREATININE (test code = 2214) 0.87 MG/DL eGFR AMER. (test cod e = 93872) 87 ML/MIN/1.73 eGFR NON- AMER. (test code = 97977) 75 ML/MIN/1.73 CALC BUN/CREAT (test code = [...] code = 2219) 8 U/L Delfino OrtaURIC [id number] 00:00:00* Test Item Value Reference Range Interpretation Comme carlito URIC ACID (test code = 2233) 8.5 MG/DL Delfino OrtaVITAMIN [id number] 00:00:00* Test Item Value Reference Range Interpretation Comme carlito VITAMIN B-12 (test code = 2840) 335 PG/ML Delfino OrtaCBC W/AUTO [id number] 00:00:00* Test Item Value Reference Range Interpretation [...] code = 1015) 212 K/UL Delfino OrtaLIPID [id number] 00:00:00* Test Item Value Reference Range Interpretation Comme nts CHOLESTEROL (test code = 2210) 141 MG/DL TRIGLYCERIDES (test code = 2232) 71 MG/DL HDL CHOLESTEROL (test code = 2220) 69 MG/DL CALC LDL CHOL (test code = 2237) 58 MG/DL RISK RATIO LDL/HDL (test cod e = 2238) 0.84 RATIO Delfino OrtaCOMPREHENSIVE METABOLIC [id number] 00:00:00* Test Item Value Reference Range Interpretation Comme nts GLUCOSE (test code = 2217) 95 MG/DL BUN (test code = 2208) 21 MG/DL CREATININE (test code = 2214) 0.87 MG/DL eGFR AMER. (test cod e = 03953) 87 ML/MIN/1.73 eGFR NON- AMER. (test code = 10877) 75 ML/MIN/1.73 CALC BUN/CREAT (test code = [...] code = 2219) 8 U/L Delfino OrtaURIC [id number] 00:00:00* Test Item Value Reference Range Interpretation Comme carlito URIC ACID (test code = 2233) 8.5 MG/DL Delfino OrtaVITAMIN [id number] 00:00:00* Test Item Value Reference Range Interpretation Comme carlito VITAMIN B-12 (test code = 2840) 335 PG/ML Delfino OrtaCOMPREHENSIVE METABOLIC [id number] 00:00:00* Test Item Value Reference Range Interpretation Comme nts GLUCOSE (test code = 2217) 95 MG/DL BUN (test code = 2208) 21 MG/DL CREATININE (test code = 2214) 0.87 MG/DL eGFR AMER. (test cod e = 21330) 87 ML/MIN/1.73 eGFR NON- AMER. (test code = 77136) 75 ML/MIN/1.73 CALC BUN/CREAT (test code = [...] = 2219) 8 U/L Delfino OrtaCBC W/AUTO [id number] 00:00:00* Test Item Value Reference Range Interpretation Comme carlito WBC (test code = 1001) 2.9 K/UL [...] = 1015) 212 K/UL Delfino Schumacher AustinLIPID [id number] 00:00:00* Test Item Value Reference Range Interpretation Comme nts CHOLESTEROL (test code = 2210) 141 MG/DL TRIGLYCERIDES (test code = 2232) 71 MG/DL HDL CHOLESTEROL (test code = 2220) 69 MG/DL CALC LDL CHOL (test code = 2237) 58 MG/DL RISK RATIO LDL/HDL (test cod e = 2238) 0.84 RATIO Delfino Schumacher AustinCD4/CD8 LYMPHOCYTE [id number] 00:00:00* Test Item Value Reference Range Interpretation Comme nts ABSOLUTE LYMPHOCYTES (test c ode = 44559) 807 PERUL PERCENT CD4 (test code = 52541) 13.1 % ABSOLUTE CD4 (test code = 68283) 105 PERUL PERCENT CD8 (test code = 61966) 61.6 % ABSOLUTE CD8 (test code = 59437) 497 PERUL CD4/CD8 RATIO (test code = 65222) 0.21 Delfino Schumacher AustinCD4/CD8 LYMPHOCYTE [id number] 00:00:00* Test Item Value Reference Range Interpretation Comme nts ABSOLUTE LYMPHOCYTES (test c ode = 13249) 807 PERUL PERCENT CD4 (test code = 49862) 13.1 % ABSOLUTE CD4 (test code = 03213) 105 PERUL PERCENT CD8 (test code = 57543) 61.6 % ABSOLUTE CD8 (test code = 17343) 497 PERUL CD4/CD8 RATIO (test code = 18348) 0.21 Delfino Schumacher AustinCD4/CD8 LYMPHOCYTE [id number] 00:00:00* Test Item Value Reference Range Interpretation Comme nts ABSOLUTE LYMPHOCYTES (test c ode = 05827) 807 PERUL PERCENT CD4 (test code = 68310) 13.1 % ABSOLUTE CD4 (test code = 28330) 105 PERUL PERCENT CD8 (test code = 15703) 61.6 % ABSOLUTE CD8 (test code = 31164) 497 PERUL CD4/CD8 RATIO (test code = 54195) 0.21 Delfino Schumacher AustinCD4/CD8 LYMPHOCYTE [id number] 00:00:00* Test Item Value Reference Range Interpretation Comme nts ABSOLUTE LYMPHOCYTES (test c ode = 20259) 807 PERUL PERCENT CD4 (test code = 99801) 13.1 % ABSOLUTE CD4 (test code = 93171) 105 PERUL PERCENT CD8 (test code = 64068) 61.6 % ABSOLUTE CD8 (test code = 82247) 497 PERUL CD4/CD8 RATIO (test code = 25847) 0.21 Delfino Schumacher AustinCD4/CD8 LYMPHOCYTE [id number] 00:00:00* Test Item Value Reference Range Interpretation Comme nts ABSOLUTE LYMPHOCYTES (test c ode = 18457) 807 PERUL PERCENT CD4 (test code = 90637) 13.1 % ABSOLUTE CD4 (test code = 69426) 105 PERUL PERCENT CD8 (test code = 34929) 61.6 % ABSOLUTE CD8 (test code = 89172) 497 PERUL CD4/CD8 RATIO (test code = 59967) 0.21 Delfino Schumacher AustinCD4/CD8 LYMPHOCYTE [id number] 00:00:00* Test Item Value Reference Range Interpretation Comme nts ABSOLUTE LYMPHOCYTES (test c ode = 85100) 807 PERUL PERCENT CD4 (test code = 60942) 13.1 % ABSOLUTE CD4 (test code = 27963) 105 PERUL PERCENT CD8 (test code = 23809) 61.6 % ABSOLUTE CD8 (test code = 50045) 497 PERUL CD4/CD8 RATIO (test code = 10190) 0.21 Delfino Schumacher AustinCD4/CD8 LYMPHOCYTE [id number] 00:00:00* Test Item Value Reference Range Interpretation Comme nts ABSOLUTE LYMPHOCYTES (test c ode = 09577) 807 PERUL PERCENT CD4 (test code = 66145) 13.1 % ABSOLUTE CD4 (test code = 15749) 105 PERUL PERCENT CD8 (test code = 59357) 61.6 % ABSOLUTE CD8 (test code = 16621) 497 PERUL CD4/CD8 RATIO (test code = 63748) 0.21 Delfino Schumacher AustinCD4/CD8 LYMPHOCYTE [id number] 00:00:00* Test Item Value Reference Range Interpretation Comme nts ABSOLUTE LYMPHOCYTES (test c ode = 08940) 807 PERUL PERCENT CD4 (test code = 31335) 13.1 % ABSOLUTE CD4 (test code = 69579) 105 PERUL PERCENT CD8 (test code = 12155) 61.6 % ABSOLUTE CD8 (test code = 92761) 497 PERUL CD4/CD8 RATIO (test code = 54309) 0.21 Delfino Schumacher AustinCD4/CD8 LYMPHOCYTE [id number] 00:00:00* Test Item Value Reference Range Interpretation Comme nts ABSOLUTE LYMPHOCYTES (test c ode = 50189) 807 PERUL PERCENT CD4 (test code = 23302) 13.1 % ABSOLUTE CD4 (test code = 01816) 105 PERUL PERCENT CD8 (test code = 88267) 61.6 % ABSOLUTE CD8 (test code = 12858) 497 PERUL CD4/CD8 RATIO (test code = 14672) 0.21 Delfino Schumacher AustinCD4/CD8 LYMPHOCYTE [id number] 00:00:00* Test Item Value Reference Range Interpretation Comme nts ABSOLUTE LYMPHOCYTES (test c ode = 15469) 807 PERUL PERCENT CD4 (test code = 24987) 13.1 % ABSOLUTE CD4 (test code = 00474) 105 PERUL PERCENT CD8 (test code = 55774) 61.6 % ABSOLUTE CD8 (test code = 30861) 497 PERUL CD4/CD8 RATIO (test code = 78030) 0.21 Delfino Schumacher AustinCD4/CD8 LYMPHOCYTE [id number] 00:00:00* Test Item Value Reference Range Interpretation Comme nts ABSOLUTE LYMPHOCYTES (test c ode = 77312) 807 PERUL PERCENT CD4 (test code = 20481) 13.1 % ABSOLUTE CD4 (test code = 35971) 105 PERUL PERCENT CD8 (test code = 76890) 61.6 % ABSOLUTE CD8 (test code = 62115) 497 PERUL CD4/CD8 RATIO (test code = 79723) 0.21 Delfino Schumacher AustinCD4/CD8 LYMPHOCYTE [id number] 00:00:00* Test Item Value Reference Range Interpretation Comme nts ABSOLUTE LYMPHOCYTES (test c ode = 52285) 807 PERUL PERCENT CD4 (test code = 77304) 13.1 % ABSOLUTE CD4 (test code = 95568) 105 PERUL PERCENT CD8 (test code = 69986) 61.6 % ABSOLUTE CD8 (test code = 83526) 497 PERUL CD4/CD8 RATIO (test code = 64455) 0.21 Delfino Schumacher AustinCD4/CD8 LYMPHOCYTE [id number] 00:00:00* Test Item Value Reference Range Interpretation Comme nts ABSOLUTE LYMPHOCYTES (test c ode = 33708) 807 PERUL PERCENT CD4 (test code = 62282) 13.1 % ABSOLUTE CD4 (test code = 81059) 105 PERUL PERCENT CD8 (test code = 88660) 61.6 % ABSOLUTE CD8 (test code = 97651) 497 PERUL CD4/CD8 RATIO (test code = 29896) 0.21 CD4/CD8 LYMPHOCYTE [id number] 00:00:00* Test Item Value Reference Range Interpretation Comme nts ABSOLUTE LYMPHOCYTES (test c ode = 42613) 807 PERUL PERCENT CD4 (test code = 65846) 13.1 % ABSOLUTE CD4 (test code = 12404) 105 PERUL PERCENT CD8 (test code = 25788) 61.6 % ABSOLUTE CD8 (test code = 38254) 497 PERUL CD4/CD8 RATIO (test code = 29797) 0.21 Delfino Schumacher AustinCD4/CD8 LYMPHOCYTE [id number] 00:00:00* Test Item Value Reference Range Interpretation Comme nts ABSOLUTE LYMPHOCYTES (test c ode = 00912) 807 PERUL PERCENT CD4 (test code = 63931) 13.1 % ABSOLUTE CD4 (test code = 47823) 105 PERUL PERCENT CD8 (test code = 85475) 61.6 % ABSOLUTE CD8 (test code = 45587) 497 PERUL CD4/CD8 RATIO (test code = 34782) 0.21 CD4/CD8 LYMPHOCYTE [id number] 00:00:00* Test Item Value Reference Range Interpretation Comme nts ABSOLUTE LYMPHOCYTES (test c ode = 67610) 807 PERUL PERCENT CD4 (test code = 49302) 13.1 % ABSOLUTE CD4 (test code = 95910) 105 PERUL PERCENT CD8 (test code = 16122) 61.6 % ABSOLUTE CD8 (test code = 42630) 497 PERUL CD4/CD8 RATIO (test code = 55298) 0.21 CD4/CD8 LYMPHOCYTE [id number] 00:00:00* Test Item Value Reference Range Interpretation Comme nts ABSOLUTE LYMPHOCYTES (test c ode = 93319) 807 PERUL PERCENT CD4 (test code = 58956) 13.1 % ABSOLUTE CD4 (test code = 58502) 105 PERUL PERCENT CD8 (test code = 02312) 61.6 % ABSOLUTE CD8 (test code = 82581) 497 PERUL CD4/CD8 RATIO (test code = 39919) 0.21 CD4/CD8 LYMPHOCYTE [id number] 00:00:00* Test Item Value Reference Range Interpretation Comme nts ABSOLUTE LYMPHOCYTES (test c ode = 31532) 807 PERUL PERCENT CD4 (test code = 32098) 13.1 % ABSOLUTE CD4 (test code = 16955) 105 PERUL PERCENT CD8 (test code = 51106) 61.6 % ABSOLUTE CD8 (test code = 00071) 497 PERUL CD4/CD8 RATIO (test code = 83688) 0.21 Delfino F AustinCD4/CD8 LYMPHOCYTE [id number] 00:00:00* Test Item Value Reference Range Interpretation Comme nts ABSOLUTE LYMPHOCYTES (test c ode = 69477) 807 PERUL PERCENT CD4 (test code = 21844) 13.1 % ABSOLUTE CD4 (test code = 24561) 105 PERUL PERCENT CD8 (test code = 24946) 61.6 % ABSOLUTE CD8 (test code = 35440) 497 PERUL CD4/CD8 RATIO (test code = 58850) 0.21 Delfino F AustinCD4/CD8 LYMPHOCYTE [id number] 00:00:00* Test Item Value Reference Range Interpretation Comme nts ABSOLUTE LYMPHOCYTES (test c ode = 89195) 807 PERUL PERCENT CD4 (test code = 90625) 13.1 % ABSOLUTE CD4 (test code = 13440) 105 PERUL PERCENT CD8 (test code = 91220) 61.6 % ABSOLUTE CD8 (test code = 60385) 497 PERUL CD4/CD8 RATIO (test code = 53095) 0.21 Delfino Schumacher AustinCD4/CD8 LYMPHOCYTE [id number] 00:00:00* Test Item Value Reference Range Interpretation Comme nts ABSOLUTE LYMPHOCYTES (test c ode = 93797) 807 PERUL PERCENT CD4 (test code = 26258) 13.1 % ABSOLUTE CD4 (test code = 61756) 105 PERUL PERCENT CD8 (test code = 97513) 61.6 % ABSOLUTE CD8 (test code = 40307) 497 PERUL CD4/CD8 RATIO (test code = 78976) 0.21 Delfino Schumacher AustinVITAMIN [id number] 00:00:00* Test Item Value Reference Range Interpretation Comme nts VITAMIN B-12 (test code = 2840) 358 PG/ML Delfino Schumacher AustinVITAMIN [id number] 00:00:00* Test Item Value Reference Range Interpretation Comme nts VITAMIN B-12 (test code = 2840) 358 PG/ML Delfino Schumacher AustinVITAMIN [id number] 00:00:00* Test Item Value Reference Range Interpretation Comme nts VITAMIN B-12 (test code = 2840) 358 PG/ML Delfino Schumacher AustinVITAMIN [id number] 00:00:00* Test Item Value Reference Range Interpretation Comme nts VITAMIN B-12 (test code = 2840) 358 PG/ML Delfino Schumacher AustinVITAMIN [id number] 00:00:00* Test Item Value Reference Range Interpretation Comme nts VITAMIN B-12 (test code = 2840) 358 PG/ML Delfino Schumacher AustinVITAMIN [id number] 00:00:00* Test Item Value Reference Range Interpretation Comme nts VITAMIN B-12 (test code = 2840) 358 PG/ML Delfino Schumacher AustinVITAMIN [id number] 00:00:00* Test Item Value Reference Range Interpretation Comme nts VITAMIN B-12 (test code = 2840) 358 PG/ML Delfino Schumacher AustinVITAMIN [id number] 00:00:00* Test Item Value Reference Range Interpretation Comme nts VITAMIN B-12 (test code = 2840) 358 PG/ML Delfino Schumacher AustinVITAMIN [id number] 00:00:00* Test Item Value Reference Range Interpretation Comme nts VITAMIN B-12 (test code = 2840) 358 PG/ML Delfino Schumacher AustinVITAMIN [id number] 00:00:00* Test Item Value Reference Range Interpretation Comme nts VITAMIN B-12 (test code = 2840) 358 PG/ML Delfino Schumacher AustinVITAMIN [id number] 00:00:00* Test Item Value Reference Range Interpretation Comme nts VITAMIN B-12 (test code = 2840) 358 PG/ML Delfino Schumacher AustinVITAMIN [id number] 00:00:00* Test Item Value Reference Range Interpretation Comme nts VITAMIN B-12 (test code = 2840) 358 PG/ML VITAMIN [id number] 00:00:00* Test Item Value Reference Range Interpretation Comme nts VITAMIN B-12 (test code = 2840) 358 PG/ML Delfino Schumacher AustinVITAMIN [id number] 00:00:00* Test Item Value Reference Range Interpretation Comme nts VITAMIN B-12 (test code = 2840) 358 PG/ML Delfino Schumacher AustinVITAMIN [id number] 00:00:00* Test Item Value Reference Range Interpretation Comme nts VITAMIN B-12 (test code = 2840) 358 PG/ML VITAMIN [id number] 00:00:00* Test Item Value Reference Range Interpretation Comme nts VITAMIN B-12 (test code = 2840) 358 PG/ML VITAMIN [id number] 00:00:00* Test Item Value Reference Range Interpretation Comme nts VITAMIN B-12 (test code = 2840) 358 PG/ML VITAMIN [id number] 00:00:00* Test Item Value Reference Range Interpretation Comme nts VITAMIN B-12 (test code = 2840) 358 PG/ML Delfino Schumacher AustinVITAMIN [id number] 00:00:00* Test Item Value Reference Range Interpretation Comme nts VITAMIN B-12 (test code = 2840) 358 PG/ML Delfino Schumacher AustinVITAMIN [id number] 00:00:00* Test Item Value Reference Range Interpretation Comme nts VITAMIN B-12 (test code = 2840) 358 PG/ML Delfino Schumacher AustinVITAMIN [id number] 00:00:00* Test Item Value Reference Range Interpretation Comme nts VITAMIN B-12 (test code = 2840) 358 PG/ML Delfino OrtaIRON BINDING CAPACITY AND IRON AND % SATURATION [ADDED] 2018-09-09 00:00:00* Test Item Value Reference Range Interpretation Comme nts IRON, SERUM (test code = 2222) 32 UG/DL UNSATURATED IBC (test code = 35048) 326 UG/DL CALC TOTAL IBC (test code = 2077) 358 UG/DL CALC % IRON SAT (test code = 2079) 9 % Delfino Schumacher AustinFERRITIN [ADDED]2018-09-09 00:00:00* Test Item Value Reference Range Interpretation Comme nts FERRITIN (test code = 2075) 19 NG/ML Delfino Schumacher AustinTRANSFERRIN [ADDED]2018-09-09 00:00:00* Test Item Value Reference Range Interpretation Comme nts TRANSFERRIN (test code = 4936) 298 MG/DL Delfino Schumacher YouCBC W/AUTO DIFF WITH PLATELETS [ADDED]2018-09-09 00:00:00* [...] code = 2695) 9.9 UG/L Delfino F AustinFERRITIN [ADDED]2018-09-09 00:00:00* Test Item Value Reference Range Interpretation Comme nts FERRITIN (test code = 2075) 19 NG/ML Delfino Schumacher AustinIRON BINDING CAPACITY AND IRON AND % SATURATION [ADDED] 2018-09-09 00:00:00* Test Item Value Reference Range Interpretation Comme nts IRON, SERUM (test code = 2222) 32 UG/DL UNSATURATED IBC (test code = 81433) 326 UG/DL CALC TOTAL IBC (test code = 2077) 358 UG/DL CALC % IRON SAT (test code = 2079) 9 % Delfino Schumacher AustinFERRITIN [ADDED]2018-09-09 00:00:00* Test Item Value Reference Range Interpretation Comme nts FERRITIN (test code = 5) 19 NG/ML Delfino Schumacher AustinTRANSFERRIN [ADDED]2018-09-09 00:00:00* Test Item Value Reference Range Interpretation Comme nts TRANSFERRIN (test code = 4936) 298 MG/DL Delfino Schumacher AustinTRANSFERRIN [ADDED]2018-09-09 00:00:00* Test Item [...] (test code = 1016) (NOTE) Delfino Endy AustinVITAMIN B 12 AND FOLIC ACID [ADDED]2018-09-09 [...] 32 UG/DL UNSATURATED IBC (test code = 22202) 326 UG/DL CALC TOTAL IBC (test code = 2077) 358 UG/DL CALC % IRON SAT (test code = 2079) 9 % Delfino Schumacher AustinFERRITIN [ADDED]2018-09-09 00:00:00* Test Item Value Reference Range Interpretation Comme nts FERRITIN (test code = 2075) 19 NG/ML Delfino Schumacher AustinTRANSFERRIN [ADDED]2018-09-09 00:00:00* Test Item Value Reference Range Interpretation Comme nts TRANSFERRIN (test code = 4936) 298 MG/DL Delfino Schumacher YouCBC W/AUTO DIFF WITH PLATELETS [ADDED]2018-09-09 00:00:00* [...] (test code = 1016) (NOTE) Delfino Endy AustinVITAMIN B 12 AND FOLIC ACID [ADDED]2018-09-09 00:00:00* Test Item Value Reference Range Interpretation Comme nts VITAMIN B-12 (test code = 2840) 166 PG/ML FOLIC ACID (test code = 2695) 9.9 UG/L Delfino Endy AustinIRON BINDING CAPACITY AND IRON AND % SATURATION [ADDED] 2018-09-09 00:00:00* Test Item Value Reference Range Interpretation Comme nts IRON, SERUM (test code = 2222) 32 UG/DL UNSATURATED IBC (test code = 43448) 326 UG/DL CALC TOTAL IBC (test code [...] 32 UG/DL UNSATURATED IBC (test code = 85195) 326 UG/DL CALC TOTAL IBC (test code = 7) 358 UG/DL CALC % IRON SAT (test code = 2078) 9 % Delfino OrtaFERRITIN [ADDED]2018-09-09 00:00:00* Test Item Value Reference Range Interpretation Comme nts FERRITIN (test code = 5) 19 NG/ML Delfino Schumacher AustinTRANSFERRIN [ADDED]2018-09-09 00:00:00* [...] 32 UG/DL UNSATURATED IBC (test code = 60693) 326 UG/DL CALC TOTAL IBC (test code = 7) 358 UG/DL CALC % IRON SAT (test code = 9) 9 % Delfino F AustinFERRITIN [ADDED]2018-09-09 00:00:00* Test Item Value Reference Range Interpretation Comme nts FERRITIN (test code = 2074) 19 NG/ML Delfino Schumacher AustinTRANSFERRIN [ADDED]2018-09-09 00:00:00* [...] 32 UG/DL UNSATURATED IBC (test code = 48388) 326 UG/DL CALC TOTAL IBC (test code = 2076) 358 UG/DL CALC % IRON SAT (test code = 2078) 9 % Delfino Schumacher AustinFERRITIN [ADDED]2018-09-09 00:00:00* Test Item Value Reference Range Interpretation Comme nts FERRITIN (test code = 5) 19 NG/ML Delfino Schumacher AustinTRANSFERRIN [ADDED]2018-09-09 00:00:00* [...] 32 UG/DL UNSATURATED IBC (test code = 74147) 326 UG/DL CALC TOTAL IBC (test code [...] 32 UG/DL UNSATURATED IBC (test code = 37162) 326 UG/DL CALC TOTAL IBC (test code [...] K/UL COMMENTS (test code = 1016) (NOTE) eDlfino OrtaVITAMIN B 12 AND FOLIC ACID [ADDED]2018-09-09 [...] 32 UG/DL UNSATURATED IBC (test code = 53836) 326 UG/DL CALC TOTAL IBC (test code [...] 32 UG/DL UNSATURATED IBC (test code = 90611) 326 UG/DL CALC TOTAL IBC (test code [...] 32 UG/DL UNSATURATED IBC (test code = 19728) 326 UG/DL CALC TOTAL IBC (test code [...] 32 UG/DL UNSATURATED IBC (test code = 28312) 326 UG/DL CALC TOTAL IBC (test code [...] 32 UG/DL UNSATURATED IBC (test code = 98866) 326 UG/DL CALC TOTAL IBC (test code [...] 32 UG/DL UNSATURATED IBC (test code = 80766) 326 UG/DL CALC TOTAL IBC (test code [...] 32 UG/DL UNSATURATED IBC (test code = 09542) 326 UG/DL CALC TOTAL IBC (test code [...] 32 UG/DL UNSATURATED IBC (test code = 84577) 326 UG/DL CALC TOTAL IBC (test code = 2077) 358 UG/DL CALC % IRON SAT (test code = 2079) 9 % Delfino F AustinFERRITIN [ADDED]2018-09-09 00:00:00* [...] 32 UG/DL UNSATURATED IBC (test code = 70808) 326 UG/DL CALC TOTAL IBC (test code = 2077) 358 UG/DL CALC % IRON SAT (test code = 2079) 9 % Delfino OrtaFERRITIN [ADDED]2018-09-09 00:00:00* Test Item Value Reference Range Interpretation Comme nts FERRITIN (test code = 2075) 19 NG/ML Delfino Schumacher YouTRANSFERRIN [ADDED]2018-09-09 00:00:00* Test Item Value Reference Range Interpretation Comme nts TRANSFERRIN (test code = 4936) 298 MG/DL Delfino Schumacher YouCBC W/AUTO DIFF WITH PLATELETS [ADDED]2018-09-09 00:00:00* [...] 32 UG/DL UNSATURATED IBC (test code = 75980) 326 UG/DL CALC TOTAL IBC (test code [...] code = 2695) 9.9 UG/L Delfino Schumacher AustinVITAMIN B 12 AND FOLIC ACID [ADDED]2018-09-09 00:00:00* Test Item Value Reference Range Interpretation Comme nts VITAMIN B-12 (test code = 2840) 166 PG/ML FOLIC ACID (test code = 2695) 9.9 UG/L Delfino Schumacher AustinIRON BINDING CAPACITY AND IRON AND % SATURATION [ADDED] 2018-09-09 00:00:00* Test Item Value Reference Range Interpretation Comme nts IRON, SERUM (test code = 2221) 32 UG/DL UNSATURATED IBC (test code = ) 326 UG/DL CALC TOTAL IBC (test code = 2076) 358 UG/DL CALC % IRON SAT (test code = 2078) 9 % Delfino Scuhmacher AustinFERRITIN [ADDED]2018-09-09 00:00:00* Test Item Value Reference Range Interpretation Comme nts FERRITIN (test code = 2074) 19 NG/ML Delfino Schumacher AustinTRANSFERRIN [ADDED]2018-09-09 00:00:00* [...] (test code = 1016) (NOTE) Delfino Schumacher AustinIRON BINDING CAPACITY AND IRON AND % SATURATION [ADDED] 2018-09-09 00:00:00* Test Item Value Reference Range Interpretation Comme nts IRON, SERUM (test code = 2221) 32 UG/DL UNSATURATED IBC (test code = 03197) 326 UG/DL CALC TOTAL IBC (test code = 7) 358 UG/DL CALC % IRON SAT (test code = 2079) 9 % Delfino Schumacher AustinVITAMIN B 12 AND FOLIC ACID [ADDED]2018-09-09 00:00:00* Test Item Value Reference Range Interpretation Comme nts VITAMIN B-12 (test code = 2840) 166 PG/ML FOLIC ACID (test code = 2695) 9.9 UG/L Delfino Schumacher AustinCOMPREHENSIVE METABOLIC [id number] 00:00:00* Test Item Value Reference Range Interpretation Comme nts GLUCOSE (test code = 2217) 84 MG/DL BUN (test code = 2208) 12 MG/DL CREATININE (test code = 2214) 1.02 MG/DL eGFR AMER. (test cod e = 10284) 72 ML/MIN/1.73 eGFR NON- AMER. (test code = 54156) 62 ML/MIN/1.73 CALC BUN/CREAT (test code = [...] code = 2219) 9 U/L Delfino OrtaURIC [id number] 00:00:00* Test Item Value Reference Range Interpretation Comme nts URIC ACID (test code = 2233) 7.8 MG/DL Delfino OrtaCOMPREHENSIVE METABOLIC [id number] 00:00:00* Test Item Value Reference Range Interpretation Comme nts GLUCOSE (test code = 2217) 84 MG/DL BUN (test code = 2208) 12 MG/DL CREATININE (test code = 2214) 1.02 MG/DL eGFR AMER. (test cod e = 31336) 72 ML/MIN/1.73 eGFR NON- AMER. (test code = 67663) 62 ML/MIN/1.73 CALC BUN/CREAT (test code = [...] (test code = 2219) 9 U/L Delfino OrtaCBC W/AUTO [id number] 00:00:00* Test Item Value Reference Range Interpretation [...] = 1015) 230 K/UL Delfino OrtaCOMPREHENSIVE METABOLIC [id number] 00:00:00* Test Item Value Reference Range Interpretation Comme nts GLUCOSE (test code = 2217) 84 MG/DL BUN (test code = 2208) 12 MG/DL CREATININE (test code = 2214) 1.02 MG/DL eGFR AMER. (test cod e = 99011) 72 ML/MIN/1.73 eGFR NON- AMER. (test code = 33993) 62 ML/MIN/1.73 CALC BUN/CREAT (test code = [...] code = 2219) 9 U/L Delfino OrtaURIC [id number] 00:00:00* Test Item Value Reference Range Interpretation Comme nts URIC ACID (test code = 2233) 7.8 MG/DL Delfino OrtaCBC W/AUTO [id number] 00:00:00* Test Item Value Reference Range Interpretation [...] = 1015) 230 K/UL Delfino OrtaCOMPREHENSIVE METABOLIC [id number] 00:00:00* Test Item Value Reference Range Interpretation Comme nts GLUCOSE (test code = 2217) 84 MG/DL BUN (test code = 2208) 12 MG/DL CREATININE (test code = 2214) 1.02 MG/DL eGFR AMER. (test cod e = 36185) 72 ML/MIN/1.73 eGFR NON- AMER. (test code = 24974) 62 ML/MIN/1.73 CALC BUN/CREAT (test code = [...] = 2219) 9 U/L Delfino Schumacher YouURIC [id number] 00:00:00* Test Item Value Reference Range Interpretation Comme nts URIC ACID (test code = 2233) 7.8 MG/DL Delfino Schumacher YouCBC W/AUTO [id number] 00:00:00* Test Item Value Reference Range Interpretation [...] = 1015) 230 K/UL Delfino OrtaCOMPREHENSIVE METABOLIC [id number] 00:00:00* Test Item Value Reference Range Interpretation Comme nts GLUCOSE (test code = 2217) 84 MG/DL BUN (test code = 2208) 12 MG/DL CREATININE (test code = 2214) 1.02 MG/DL eGFR AMER. (test cod e = 15380) 72 ML/MIN/1.73 eGFR NON- AMER. (test code = 29388) 62 ML/MIN/1.73 CALC BUN/CREAT (test code = [...] code = 2219) 9 U/L Delfino OrtaURIC [id number] 00:00:00* Test Item Value Reference Range Interpretation Comme nts URIC ACID (test code = 2233) 7.8 MG/DL Delfino OrtaCBC W/AUTO [id number] 00:00:00* Test Item Value Reference Range Interpretation [...] 1015) 230 K/UL Delfino Schumacher YouCOMPREHENSIVE METABOLIC [id number] 00:00:00* Test Item Value Reference Range Interpretation Comme nts GLUCOSE (test code = 2217) 84 MG/DL BUN (test code = 2208) 12 MG/DL CREATININE (test code = 2214) 1.02 MG/DL eGFR AMER. (test cod e = 94717) 72 ML/MIN/1.73 eGFR NON- AMER. (test code = 07923) 62 ML/MIN/1.73 CALC BUN/CREAT (test code = [...] = 2219) 9 U/L Delfino Schumacher YouURIC [id number] 00:00:00* Test Item Value Reference Range Interpretation Comme nts URIC ACID (test code = 2233) 7.8 MG/DL Delfino Schumacher YouCBC W/AUTO [id number] 00:00:00* Test Item Value Reference Range Interpretation [...] = 1015) 230 K/UL Delfino OrtaCOMPREHENSIVE METABOLIC [id number] 00:00:00* Test Item Value Reference Range Interpretation Comme nts GLUCOSE (test code = 2217) 84 MG/DL BUN (test code = 2208) 12 MG/DL CREATININE (test code = 2214) 1.02 MG/DL eGFR AMER. (test cod e = 46862) 72 ML/MIN/1.73 eGFR NON- AMER. (test code = 30748) 62 ML/MIN/1.73 CALC BUN/CREAT (test code = [...] (test code = 2219) 9 U/L Delfino Endy YouURIC [id number] 00:00:00* Test Item Value Reference Range Interpretation Comme nts URIC ACID (test code = 2233) 7.8 MG/DL Delfino OrtaCBC W/AUTO [id number] 00:00:00* Test Item Value Reference Range Interpretation [...] = 1015) 230 K/UL Delfino OrtaCOMPREHENSIVE METABOLIC [id number] 00:00:00* Test Item Value Reference Range Interpretation Comme nts GLUCOSE (test code = 2217) 84 MG/DL BUN (test code = 2208) 12 MG/DL CREATININE (test code = 2214) 1.02 MG/DL eGFR AMER. (test cod e = 57496) 72 ML/MIN/1.73 eGFR NON- AMER. (test code = 30680) 62 ML/MIN/1.73 CALC BUN/CREAT (test code = [...] code = 2219) 9 U/L Delfino OrtaURIC [id number] 00:00:00* Test Item Value Reference Range Interpretation Comme nts URIC ACID (test code = 2233) 7.8 MG/DL Delfino OrtaCBC W/AUTO [id number] 00:00:00* Test Item Value Reference Range Interpretation [...] = 1015) 230 K/UL Delfino OrtaCOMPREHENSIVE METABOLIC [id number] 00:00:00* Test Item Value Reference Range Interpretation Comme nts GLUCOSE (test code = 2217) 84 MG/DL BUN (test code = 2208) 12 MG/DL CREATININE (test code = 2214) 1.02 MG/DL eGFR AMER. (test cod e = 08955) 72 ML/MIN/1.73 eGFR NON- AMER. (test code = 76307) 62 ML/MIN/1.73 CALC BUN/CREAT (test code = [...] code = 2219) 9 U/L Delfino OrtaURIC [id number] 00:00:00* Test Item Value Reference Range Interpretation Comme nts URIC ACID (test code = 2233) 7.8 MG/DL Delfino OrtaCBC W/AUTO [id number] 00:00:00* Test Item Value Reference Range Interpretation [...] = 1015) 230 K/UL Delfino OrtaCOMPREHENSIVE METABOLIC [id number] 00:00:00* Test Item Value Reference Range Interpretation Comme nts GLUCOSE (test code = 2217) 84 MG/DL BUN (test code = 2208) 12 MG/DL CREATININE (test code = 2214) 1.02 MG/DL eGFR AMER. (test cod e = 88852) 72 ML/MIN/1.73 eGFR NON- AMER. (test code = 62632) 62 ML/MIN/1.73 CALC BUN/CREAT (test code = [...] code = 2219) 9 U/L Delfino OrtaURIC [id number] 00:00:00* Test Item Value Reference Range Interpretation Comme nts URIC ACID (test code = 2233) 7.8 MG/DL Delfino OrtaCBC W/AUTO [id number] 00:00:00* Test Item Value Reference Range Interpretation [...] = 1015) 230 K/UL Delfino OrtaCOMPREHENSIVE METABOLIC [id number] 00:00:00* Test Item Value Reference Range Interpretation Comme nts GLUCOSE (test code = 2217) 84 MG/DL BUN (test code = 2208) 12 MG/DL CREATININE (test code = 2214) 1.02 MG/DL eGFR AMER. (test cod e = 09952) 72 ML/MIN/1.73 eGFR NON- AMER. (test code = 57379) 62 ML/MIN/1.73 CALC BUN/CREAT (test code = [...] code = 2219) 9 U/L Delfino OrtaURIC [id number] 00:00:00* Test Item Value Reference Range Interpretation Comme nts URIC ACID (test code = 2233) 7.8 MG/DL Delfino OrtaCBC W/AUTO [id number] 00:00:00* Test Item Value Reference Range Interpretation [...] = 1015) 230 K/UL Delfino OrtaCOMPREHENSIVE METABOLIC [id number] 00:00:00* Test Item Value Reference Range Interpretation Comme nts GLUCOSE (test code = 2217) 84 MG/DL BUN (test code = 2208) 12 MG/DL CREATININE (test code = 2214) 1.02 MG/DL eGFR AMER. (test cod e = 52745) 72 ML/MIN/1.73 eGFR NON- AMER. (test code = 26509) 62 ML/MIN/1.73 CALC BUN/CREAT (test code = [...] code = 2219) 9 U/L Delfino OrtaURIC [id number] 00:00:00* Test Item Value Reference Range Interpretation Comme nts URIC ACID (test code = 2233) 7.8 MG/DL Delfino OrtaCBC W/AUTO [id number] 00:00:00* Test Item Value Reference Range Interpretation [...] = 1015) 230 K/UL Delfino OrtaCOMPREHENSIVE METABOLIC [id number] 00:00:00* Test Item Value Reference Range Interpretation Comme nts GLUCOSE (test code = 2217) 84 MG/DL BUN (test code = 2208) 12 MG/DL CREATININE (test code = 2214) 1.02 MG/DL eGFR AMER. (test cod e = 51904) 72 ML/MIN/1.73 eGFR NON- AMER. (test code = 50222) 62 ML/MIN/1.73 CALC BUN/CREAT (test code = [...] code = 2219) 9 U/L Delfino OrtaURIC [id number] 00:00:00* Test Item Value Reference Range Interpretation Comme nts URIC ACID (test code = 2233) 7.8 MG/DL Delfino OrtaURIC [id number] 00:00:00* Test Item Value Reference Range Interpretation Comme nts URIC ACID (test code = 2233) 7.8 MG/DL CBC W/AUTO [id number] 00:00:00* Test Item Value Reference Range Interpretation [...] code = 1015) 230 K/UL COMPREHENSIVE METABOLIC [id number] 00:00:00* Test Item Value Reference Range Interpretation Comme nts GLUCOSE (test code = 2217) 84 MG/DL BUN (test code = 2208) 12 MG/DL CREATININE (test code = 2214) 1.02 MG/DL eGFR AMER. (test cod e = 68159) 72 ML/MIN/1.73 eGFR NON- AMER. (test code = 11932) 62 ML/MIN/1.73 CALC BUN/CREAT (test code = [...] (test code = 2219) 9 U/L URIC [id number] 00:00:00* Test Item Value Reference Range Interpretation Comme nts URIC ACID (test code = 2233) 7.8 MG/DL CBC W/AUTO [id number] 00:00:00* Test Item Value Reference Range Interpretation [...] code = 1015) 230 K/UL COMPREHENSIVE METABOLIC [id number] 00:00:00* Test Item Value Reference Range Interpretation Comme nts GLUCOSE (test code = 2217) 84 MG/DL BUN (test code = 2208) 12 MG/DL CREATININE (test code = 2214) 1.02 MG/DL eGFR AMER. (test cod e = 68808) 72 ML/MIN/1.73 eGFR NON- AMER. (test code = 35523) 62 ML/MIN/1.73 CALC BUN/CREAT (test code = [...] (test code = 2219) 9 U/L URIC [id number] 00:00:00* Test Item Value Reference Range Interpretation Comme nts URIC ACID (test code = 2233) 7.8 MG/DL CBC W/AUTO [id number] 00:00:00* Test Item Value Reference Range Interpretation [...] code = 1015) 230 K/UL COMPREHENSIVE METABOLIC [id number] 00:00:00* Test Item Value Reference Range Interpretation Comme nts GLUCOSE (test code = 2217) 84 MG/DL BUN (test code = 2208) 12 MG/DL CREATININE (test code = 2214) 1.02 MG/DL eGFR AMER. (test cod e = 14834) 72 ML/MIN/1.73 eGFR NON- AMER. (test code = 82697) 62 ML/MIN/1.73 CALC BUN/CREAT (test code = [...] (test code = 2219) 9 U/L URIC [id number] 00:00:00* Test Item Value Reference Range Interpretation Comme nts URIC ACID (test code = 2233) 7.8 MG/DL CBC W/AUTO [id number] 00:00:00* Test Item Value Reference Range Interpretation [...] code = 1015) 230 K/UL COMPREHENSIVE METABOLIC [id number] 00:00:00* Test Item Value Reference Range Interpretation Comme nts GLUCOSE (test code = 2217) 84 MG/DL BUN (test code = 2208) 12 MG/DL CREATININE (test code = 2214) 1.02 MG/DL eGFR AMER. (test cod e = 82364) 72 ML/MIN/1.73 eGFR NON- AMER. (test code = 69059) 62 ML/MIN/1.73 CALC BUN/CREAT (test code = [...] code = 2219) 9 U/L CBC W/AUTO [id number] 00:00:00* Test Item Value Reference Range Interpretation [...] = 1015) 230 K/UL Delfino OrtaCOMPREHENSIVE METABOLIC [id number] 00:00:00* Test Item Value Reference Range Interpretation Comme nts GLUCOSE (test code = 2217) 84 MG/DL BUN (test code = 2208) 12 MG/DL CREATININE (test code = 2214) 1.02 MG/DL eGFR AMER. (test cod e = 40887) 72 ML/MIN/1.73 eGFR NON- AMER. (test code = 92970) 62 ML/MIN/1.73 CALC BUN/CREAT (test code = [...] code = 2219) 9 U/L Delfino OrtaURIC [id number] 00:00:00* Test Item Value Reference Range Interpretation Comme nts URIC ACID (test code = 2233) 7.8 MG/DL Delfino OrtaCBC W/AUTO [id number] 00:00:00* Test Item Value Reference Range Interpretation [...] = 1015) 230 K/UL Delfino OrtaCOMPREHENSIVE METABOLIC [id number] 00:00:00* Test Item Value Reference Range Interpretation Comme nts GLUCOSE (test code = 2217) 84 MG/DL BUN (test code = 2208) 12 MG/DL CREATININE (test code = 2214) 1.02 MG/DL eGFR AMER. (test cod e = 89197) 72 ML/MIN/1.73 eGFR NON- AMER. (test code = 44098) 62 ML/MIN/1.73 CALC BUN/CREAT (test code = [...] code = 2219) 9 U/L Delfino OrtaURIC [id number] 00:00:00* Test Item Value Reference Range Interpretation Comme nts URIC ACID (test code = 2233) 7.8 MG/DL Delfino OrtaCBC W/AUTO [id number] 00:00:00* Test Item Value Reference Range Interpretation [...] code = 1015) 230 K/UL Delfino OrtaURIC [id number] 00:00:00* Test Item Value Reference Range Interpretation Comme nts URIC ACID (test code = 2233) 7.8 MG/DL Delfino OrtaCBC W/AUTO [id number] 00:00:00* Test Item Value Reference Range Interpretation [...] = 1015) 230 K/UL Delfino OrtaCOMPREHENSIVE METABOLIC [id number] 00:00:00* Test Item Value Reference Range Interpretation Comme nts GLUCOSE (test code = 2217) 84 MG/DL BUN (test code = 2208) 12 MG/DL CREATININE (test code = 2214) 1.02 MG/DL eGFR AMER. (test cod e = 99608) 72 ML/MIN/1.73 eGFR NON- AMER. (test code = 28026) 62 ML/MIN/1.73 CALC BUN/CREAT (test code = [...] code = 2219) 9 U/L Delfino OrtaURIC [id number] 00:00:00* Test Item Value Reference Range Interpretation Comme nts URIC ACID (test code = 2233) 7.8 MG/DL Delfino Schumacher YouCBC W/AUTO [id number] 00:00:00* Test Item Value Reference Range Interpretation [...] (test code = 1015) 230 K/UL Delfino F YouCOMPREHENSIVE METABOLIC [id number] 00:00:00* Test Item Value Reference Range Interpretation Comme nts GLUCOSE (test code = 2217) 84 MG/DL BUN (test code = 2208) 12 MG/DL CREATININE (test code = 2214) 1.02 MG/DL eGFR AMER. (test cod e = 99334) 72 ML/MIN/1.73 eGFR NON- AMER. (test code = 37877) 62 ML/MIN/1.73 CALC BUN/CREAT (test code = [...] (test code = 2219) 9 U/L Delfino Endy YouURIC [id number] 00:00:00* Test Item Value Reference Range Interpretation Comme nts URIC ACID (test code = 2233) 7.8 MG/DL Delfino OrtaCBC W/AUTO [id number] 00:00:00* Test Item Value Reference Range Interpretation [...] code = 1015) 230 K/UL Delfino Schumacher AustinCOMPREHENSIVE METABOLIC [id number] 00:00:00* Test Item Value Reference Range Interpretation Comme nts GLUCOSE (test code = 2217) 93 MG/DL BUN (test code = 2208) 20 MG/DL CREATININE (test code = 2214) 1.18 MG/DL eGFR AMER. (test cod e = 66587) 61 ML/MIN/1.73 eGFR NON- AMER. (test code = 35956) 52 ML/MIN/1.73 CALC BUN/CREAT (test code = [...] code = 2219) 15 U/L Delfino Endy AustinCOMPREHENSIVE METABOLIC [id number] 00:00:00* Test Item Value Reference Range Interpretation Comme nts GLUCOSE (test code = 2217) 93 MG/DL BUN (test code = 2208) 20 MG/DL CREATININE (test code = 2214) 1.18 MG/DL eGFR AMER. (test cod e = 29195) 61 ML/MIN/1.73 eGFR NON- AMER. (test code = 48787) 52 ML/MIN/1.73 CALC BUN/CREAT (test code = [...] = 2219) 15 U/L Delfino OrtaCBC W/AUTO [id number] 00:00:00* Test Item Value Reference Range Interpretation [...] code = 1015) 317 K/UL Delfino OrtaLIPID [id number] 00:00:00* Test Item Value Reference Range Interpretation Comme nts CHOLESTEROL (test code = 2210) 215 MG/DL TRIGLYCERIDES (test code = 2232) 61 MG/DL HDL CHOLESTEROL (test code = 2220) 93 MG/DL CALC LDL CHOL (test code = 2237) 110 MG/DL RISK RATIO LDL/HDL (test cod e = 2238) 1.18 RATIO Delfino OrtaCOMPREHENSIVE METABOLIC [id number] 00:00:00* Test Item Value Reference Range Interpretation Comme nts GLUCOSE (test code = 2217) 93 MG/DL BUN (test code = 2208) 20 MG/DL CREATININE (test code = 2214) 1.18 MG/DL eGFR AMER. (test cod e = 83835) 61 ML/MIN/1.73 eGFR NON- AMER. (test code = 15172) 52 ML/MIN/1.73 CALC BUN/CREAT (test code = [...] = 2219) 15 U/L Delfino OrtaCBC W/AUTO [id number] 00:00:00* Test Item Value Reference Range Interpretation [...] = 1015) 317 K/UL Delfino Schumacher AustinLIPID [id number] 00:00:00* Test Item Value Reference Range Interpretation Comme nts CHOLESTEROL (test code = 2210) 215 MG/DL TRIGLYCERIDES (test code = 2232) 61 MG/DL HDL CHOLESTEROL (test code = 2220) 93 MG/DL CALC LDL CHOL (test code = 2237) 110 MG/DL RISK RATIO LDL/HDL (test cod e = 2238) 1.18 RATIO Delfino OrtaCOMPREHENSIVE METABOLIC [id number] 00:00:00* Test Item Value Reference Range Interpretation Comme nts GLUCOSE (test code = 2217) 93 MG/DL BUN (test code = 2208) 20 MG/DL CREATININE (test code = 2214) 1.18 MG/DL eGFR AMER. (test cod e = 44149) 61 ML/MIN/1.73 eGFR NON- AMER. (test code = 86940) 52 ML/MIN/1.73 CALC BUN/CREAT (test code = [...] 2219) 15 U/L Delfino Schumacher YouCBC W/AUTO [id number] 00:00:00* Test Item Value Reference Range Interpretation [...] code = 1015) 317 K/UL Delfino OrtaLIPID [id number] 00:00:00* Test Item Value Reference Range Interpretation Comme nts CHOLESTEROL (test code = 2210) 215 MG/DL TRIGLYCERIDES (test code = 2232) 61 MG/DL HDL CHOLESTEROL (test code = 2220) 93 MG/DL CALC LDL CHOL (test code = 2237) 110 MG/DL RISK RATIO LDL/HDL (test cod e = 2238) 1.18 RATIO Delfino OrtaCOMPREHENSIVE METABOLIC [id number] 00:00:00* Test Item Value Reference Range Interpretation Comme nts GLUCOSE (test code = 2217) 93 MG/DL BUN (test code = 2208) 20 MG/DL CREATININE (test code = 2214) 1.18 MG/DL eGFR AMER. (test cod e = 17626) 61 ML/MIN/1.73 eGFR NON- AMER. (test code = 64650) 52 ML/MIN/1.73 CALC BUN/CREAT (test code = [...] = 2219) 15 U/L Delfino OrtaCBC W/AUTO [id number] 00:00:00* Test Item Value Reference Range Interpretation [...] code = 1015) 317 K/UL Delfino OrtaLIPID [id number] 00:00:00* Test Item Value Reference Range Interpretation Comme nts CHOLESTEROL (test code = 2210) 215 MG/DL TRIGLYCERIDES (test code = 2232) 61 MG/DL HDL CHOLESTEROL (test code = 2220) 93 MG/DL CALC LDL CHOL (test code = 2237) 110 MG/DL RISK RATIO LDL/HDL (test cod e = 2238) 1.18 RATIO Delfino OrtaCOMPREHENSIVE METABOLIC [id number] 00:00:00* Test Item Value Reference Range Interpretation Comme nts GLUCOSE (test code = 2217) 93 MG/DL BUN (test code = 2208) 20 MG/DL CREATININE (test code = 2214) 1.18 MG/DL eGFR AMER. (test cod e = 08260) 61 ML/MIN/1.73 eGFR NON- AMER. (test code = 87580) 52 ML/MIN/1.73 CALC BUN/CREAT (test code = [...] 2219) 15 U/L Delfino Endy YouCBC W/AUTO [id number] 00:00:00* Test Item Value Reference Range Interpretation [...] code = 1015) 317 K/UL Delfino OrtaLIPID [id number] 00:00:00* Test Item Value Reference Range Interpretation Comme nts CHOLESTEROL (test code = 2210) 215 MG/DL TRIGLYCERIDES (test code = 2232) 61 MG/DL HDL CHOLESTEROL (test code = 2220) 93 MG/DL CALC LDL CHOL (test code = 2237) 110 MG/DL RISK RATIO LDL/HDL (test cod e = 2238) 1.18 RATIO Delfino OrtaCOMPREHENSIVE METABOLIC [id number] 00:00:00* Test Item Value Reference Range Interpretation Comme nts GLUCOSE (test code = 2217) 93 MG/DL BUN (test code = 2208) 20 MG/DL CREATININE (test code = 2214) 1.18 MG/DL eGFR AMER. (test cod e = 24694) 61 ML/MIN/1.73 eGFR NON- AMER. (test code = 19700) 52 ML/MIN/1.73 CALC BUN/CREAT (test code = [...] = 2219) 15 U/L Delfino OrtaCBC W/AUTO [id number] 00:00:00* Test Item Value Reference Range Interpretation [...] code = 1015) 317 K/UL Delfino OrtaLIPID [id number] 00:00:00* Test Item Value Reference Range Interpretation Comme nts CHOLESTEROL (test code = 2210) 215 MG/DL TRIGLYCERIDES (test code = 2232) 61 MG/DL HDL CHOLESTEROL (test code = 2220) 93 MG/DL CALC LDL CHOL (test code = 2237) 110 MG/DL RISK RATIO LDL/HDL (test cod e = 2238) 1.18 RATIO Delfino OrtaCOMPREHENSIVE METABOLIC [id number] 00:00:00* Test Item Value Reference Range Interpretation Comme nts GLUCOSE (test code = 2217) 93 MG/DL BUN (test code = 2208) 20 MG/DL CREATININE (test code = 2214) 1.18 MG/DL eGFR AMER. (test cod e = 06640) 61 ML/MIN/1.73 eGFR NON- AMER. (test code = 86575) 52 ML/MIN/1.73 CALC BUN/CREAT (test code = [...] = 2219) 15 U/L Delfino OrtaCBC W/AUTO [id number] 00:00:00* Test Item Value Reference Range Interpretation [...] code = 1015) 317 K/UL Delfino OrtaLIPID [id number] 00:00:00* Test Item Value Reference Range Interpretation Comme nts CHOLESTEROL (test code = 2210) 215 MG/DL TRIGLYCERIDES (test code = 2232) 61 MG/DL HDL CHOLESTEROL (test code = 2220) 93 MG/DL CALC LDL CHOL (test code = 2237) 110 MG/DL RISK RATIO LDL/HDL (test cod e = 2238) 1.18 RATIO Delfino OrtaCOMPREHENSIVE METABOLIC [id number] 00:00:00* Test Item Value Reference Range Interpretation Comme nts GLUCOSE (test code = 2217) 93 MG/DL BUN (test code = 2208) 20 MG/DL CREATININE (test code = 2214) 1.18 MG/DL eGFR AMER. (test cod e = 68386) 61 ML/MIN/1.73 eGFR NON- AMER. (test code = 30025) 52 ML/MIN/1.73 CALC BUN/CREAT (test code = [...] = 2219) 15 U/L Delfino OrtaCBC W/AUTO [id number] 00:00:00* Test Item Value Reference Range Interpretation [...] code = 1015) 317 K/UL Delfino OrtaLIPID [id number] 00:00:00* Test Item Value Reference Range Interpretation Comme nts CHOLESTEROL (test code = 2210) 215 MG/DL TRIGLYCERIDES (test code = 2232) 61 MG/DL HDL CHOLESTEROL (test code = 2220) 93 MG/DL CALC LDL CHOL (test code = 2237) 110 MG/DL RISK RATIO LDL/HDL (test cod e = 2238) 1.18 RATIO Delfino OrtaCOMPREHENSIVE METABOLIC [id number] 00:00:00* Test Item Value Reference Range Interpretation Comme nts GLUCOSE (test code = 2217) 93 MG/DL BUN (test code = 2208) 20 MG/DL CREATININE (test code = 2214) 1.18 MG/DL eGFR AMER. (test cod e = 38950) 61 ML/MIN/1.73 eGFR NON- AMER. (test code = 10722) 52 ML/MIN/1.73 CALC BUN/CREAT (test code = [...] = 2219) 15 U/L Delfino OrtaCBC W/AUTO [id number] 00:00:00* Test Item Value Reference Range Interpretation [...] code = 1015) 317 K/UL Delfino OrtaLIPID [id number] 00:00:00* Test Item Value Reference Range Interpretation Comme nts CHOLESTEROL (test code = 2210) 215 MG/DL TRIGLYCERIDES (test code = 2232) 61 MG/DL HDL CHOLESTEROL (test code = 2220) 93 MG/DL CALC LDL CHOL (test code = 2237) 110 MG/DL RISK RATIO LDL/HDL (test cod e = 2238) 1.18 RATIO Delfino OrtaCOMPREHENSIVE METABOLIC [id number] 00:00:00* Test Item Value Reference Range Interpretation Comme nts GLUCOSE (test code = 2217) 93 MG/DL BUN (test code = 2208) 20 MG/DL CREATININE (test code = 2214) 1.18 MG/DL eGFR AMER. (test cod e = 30740) 61 ML/MIN/1.73 eGFR NON- AMER. (test code = 78480) 52 ML/MIN/1.73 CALC BUN/CREAT (test code = [...] 2219) 15 U/L Delfino Endy YouCBC W/AUTO [id number] 00:00:00* Test Item Value Reference Range Interpretation [...] code = 1015) 317 K/UL Delfino OrtaLIPID [id number] 00:00:00* Test Item Value Reference Range Interpretation Comme nts CHOLESTEROL (test code = 2210) 215 MG/DL TRIGLYCERIDES (test code = 2232) 61 MG/DL HDL CHOLESTEROL (test code = 2220) 93 MG/DL CALC LDL CHOL (test code = 2237) 110 MG/DL RISK RATIO LDL/HDL (test cod e = 2238) 1.18 RATIO Delfino OrtaCOMPREHENSIVE METABOLIC [id number] 00:00:00* Test Item Value Reference Range Interpretation Comme nts GLUCOSE (test code = 2217) 93 MG/DL BUN (test code = 2208) 20 MG/DL CREATININE (test code = 2214) 1.18 MG/DL eGFR AMER. (test cod e = 93211) 61 ML/MIN/1.73 eGFR NON- AMER. (test code = 36301) 52 ML/MIN/1.73 CALC BUN/CREAT (test code = [...] 2219) 15 U/L Delfino Schumacher YouCBC W/AUTO [id number] 00:00:00* Test Item Value Reference Range Interpretation [...] code = 1015) 317 K/UL Delfino OrtaLIPID [id number] 00:00:00* Test Item Value Reference Range Interpretation Comme nts CHOLESTEROL (test code = 2210) 215 MG/DL TRIGLYCERIDES (test code = 2232) 61 MG/DL HDL CHOLESTEROL (test code = 2220) 93 MG/DL CALC LDL CHOL (test code = 2237) 110 MG/DL RISK RATIO LDL/HDL (test cod e = 2238) 1.18 RATIO Delfino OrtaCOMPREHENSIVE METABOLIC [id number] 00:00:00* Test Item Value Reference Range Interpretation Comme nts GLUCOSE (test code = 2217) 93 MG/DL BUN (test code = 2208) 20 MG/DL CREATININE (test code = 2214) 1.18 MG/DL eGFR AMER. (test cod e = 09700) 61 ML/MIN/1.73 eGFR NON- AMER. (test code = 57029) 52 ML/MIN/1.73 CALC BUN/CREAT (test code = [...] = 2219) 15 U/L Delfino OrtaCBC W/AUTO [id number] 00:00:00* Test Item Value Reference Range Interpretation [...] (test code = 1015) 317 K/UL LIPID [id number] 00:00:00* Test Item Value Reference Range Interpretation Comme nts CHOLESTEROL (test code = 2210) 215 MG/DL TRIGLYCERIDES (test code = 2232) 61 MG/DL HDL CHOLESTEROL (test code = 2220) 93 MG/DL CALC LDL CHOL (test code = 2237) 110 MG/DL RISK RATIO LDL/HDL (test cod e = 2238) 1.18 RATIO CBC W/AUTO [id number] 00:00:00* Test Item Value Reference Range Interpretation [...] (test code = 1015) 317 K/UL Delfino F AustinCOMPREHENSIVE METABOLIC [id number] 00:00:00* Test Item Value Reference Range Interpretation Comme nts GLUCOSE (test code = 2217) 93 MG/DL BUN (test code = 2208) 20 MG/DL CREATININE (test code = 2214) 1.18 MG/DL eGFR AMER. (test cod e = 42490) 61 ML/MIN/1.73 eGFR NON- AMER. (test code = 99142) 52 ML/MIN/1.73 CALC BUN/CREAT (test code = [...] code = 2219) 15 U/L CBC W/AUTO [id number] 00:00:00* Test Item Value Reference Range Interpretation [...] (test code = 1015) 317 K/UL LIPID [id number] 00:00:00* Test Item Value Reference Range Interpretation Comme nts CHOLESTEROL (test code = 2210) 215 MG/DL TRIGLYCERIDES (test code = 2232) 61 MG/DL HDL CHOLESTEROL (test code = 2220) 93 MG/DL CALC LDL CHOL (test code = 2237) 110 MG/DL RISK RATIO LDL/HDL (test cod e = 2238) 1.18 RATIO COMPREHENSIVE METABOLIC [id number] 00:00:00* Test Item Value Reference Range Interpretation Comme nts GLUCOSE (test code = 2217) 93 MG/DL BUN (test code = 2208) 20 MG/DL CREATININE (test code = 2214) 1.18 MG/DL eGFR AMER. (test cod e = 73747) 61 ML/MIN/1.73 eGFR NON- AMER. (test code = 12056) 52 ML/MIN/1.73 CALC BUN/CREAT (test code = [...] code = 2219) 15 U/L CBC W/AUTO [id number] 00:00:00* Test Item Value Reference Range Interpretation [...] (test code = 1015) 317 K/UL LIPID [id number] 00:00:00* Test Item Value Reference Range Interpretation Comme nts CHOLESTEROL (test code = 2210) 215 MG/DL TRIGLYCERIDES (test code = 2232) 61 MG/DL HDL CHOLESTEROL (test code = 2220) 93 MG/DL CALC LDL CHOL (test code = 2237) 110 MG/DL RISK RATIO LDL/HDL (test cod e = 2238) 1.18 RATIO COMPREHENSIVE METABOLIC [id number] 00:00:00* Test Item Value Reference Range Interpretation Comme nts GLUCOSE (test code = 2217) 93 MG/DL BUN (test code = 2208) 20 MG/DL CREATININE (test code = 2214) 1.18 MG/DL eGFR AMER. (test cod e = 44891) 61 ML/MIN/1.73 eGFR NON- AMER. (test code = 85738) 52 ML/MIN/1.73 CALC BUN/CREAT (test code = [...] code = 2219) 15 U/L CBC W/AUTO [id number] 00:00:00* Test Item Value Reference Range Interpretation [...] (test code = 1015) 317 K/UL LIPID [id number] 00:00:00* Test Item Value Reference Range Interpretation Comme nts CHOLESTEROL (test code = 2210) 215 MG/DL TRIGLYCERIDES (test code = 2232) 61 MG/DL HDL CHOLESTEROL (test code = 2220) 93 MG/DL CALC LDL CHOL (test code = 2237) 110 MG/DL RISK RATIO LDL/HDL (test cod e = 2238) 1.18 RATIO COMPREHENSIVE METABOLIC [id number] 00:00:00* Test Item Value Reference Range Interpretation Comme nts GLUCOSE (test code = 2217) 93 MG/DL BUN (test code = 2208) 20 MG/DL CREATININE (test code = 2214) 1.18 MG/DL eGFR AMER. (test cod e = 05345) 61 ML/MIN/1.73 eGFR NON- AMER. (test code = 12927) 52 ML/MIN/1.73 CALC BUN/CREAT (test code = [...] (test code = 2219) 15 U/L LIPID [id number] 00:00:00* Test Item Value Reference Range Interpretation Comme nts CHOLESTEROL (test code = 2210) 215 MG/DL TRIGLYCERIDES (test code = 2232) 61 MG/DL HDL CHOLESTEROL (test code = 2220) 93 MG/DL CALC LDL CHOL (test code = 2237) 110 MG/DL RISK RATIO LDL/HDL (test cod e = 2238) 1.18 RATIO Delfino OrtaCOMPREHENSIVE METABOLIC [id number] 00:00:00* Test Item Value Reference Range Interpretation Comme nts GLUCOSE (test code = 2217) 93 MG/DL BUN (test code = 2208) 20 MG/DL CREATININE (test code = 2214) 1.18 MG/DL eGFR AMER. (test cod e = 54400) 61 ML/MIN/1.73 eGFR NON- AMER. (test code = 67389) 52 ML/MIN/1.73 CALC BUN/CREAT (test code = [...] 2219) 15 U/L Delfino Schumacher YouCBC W/AUTO [id number] 00:00:00* Test Item Value Reference Range Interpretation [...] code = 1015) 317 K/UL Delfino OrtaLIPID [id number] 00:00:00* Test Item Value Reference Range Interpretation Comme nts CHOLESTEROL (test code = 2210) 215 MG/DL TRIGLYCERIDES (test code = 2232) 61 MG/DL HDL CHOLESTEROL (test code = 2220) 93 MG/DL CALC LDL CHOL (test code = 2237) 110 MG/DL RISK RATIO LDL/HDL (test cod e = 2238) 1.18 RATIO Delfino OrtaCOMPREHENSIVE METABOLIC [id number] 00:00:00* Test Item Value Reference Range Interpretation Comme nts GLUCOSE (test code = 2217) 93 MG/DL BUN (test code = 2208) 20 MG/DL CREATININE (test code = 2214) 1.18 MG/DL eGFR AMER. (test cod e = 42539) 61 ML/MIN/1.73 eGFR NON- AMER. (test code = 08052) 52 ML/MIN/1.73 CALC BUN/CREAT (test code = [...] ALT (test code = 2219) 15 U/L Delfion OrtaCBC W/AUTO [id number] 00:00:00* Test Item Value Reference Range Interpretation [...] code = 1015) 317 K/UL [facility] [id number] 00:00:00* Test Item Value Reference Range Interpretation [...] code = 1015) 317 K/UL Delfino OrtaLIPID [id number] 00:00:00* Test Item Value Reference Range Interpretation Comme nts CHOLESTEROL (test code = 2210) 215 MG/DL TRIGLYCERIDES (test code = 2232) 61 MG/DL HDL CHOLESTEROL (test code = 2220) 93 MG/DL CALC LDL CHOL (test code = 2237) 110 MG/DL RISK RATIO LDL/HDL (test cod e = 2238) 1.18 RATIO Delfino OrtaCOMPREHENSIVE METABOLIC [id number] 00:00:00* Test Item Value Reference Range Interpretation Comme nts GLUCOSE (test code = 2217) 93 MG/DL BUN (test code = 2208) 20 MG/DL CREATININE (test code = 2214) 1.18 MG/DL eGFR AMER. (test cod e = 00724) 61 ML/MIN/1.73 eGFR NON- AMER. (test code = 02340) 52 ML/MIN/1.73 CALC BUN/CREAT (test code = [...] = 2219) 15 U/L Delfino OrtaCBC W/AUTO [id number] 00:00:00* Test Item Value Reference Range Interpretation [...] = 1015) 317 K/UL Delfino Schumacher AustinLIPID [id number] 00:00:00* Test Item Value Reference Range Interpretation Comme nts CHOLESTEROL (test code = 2210) 215 MG/DL TRIGLYCERIDES (test code = 2232) 61 MG/DL HDL CHOLESTEROL (test code = 2220) 93 MG/DL CALC LDL CHOL (test code = 2237) 110 MG/DL RISK RATIO LDL/HDL (test cod e = 2238) 1.18 RATIO Delfino OrtaLIPID [id number] 00:00:00* Test Item Value Reference Range Interpretation Comme nts CHOLESTEROL (test code = 2210) 215 MG/DL TRIGLYCERIDES (test code = 2232) 61 MG/DL HDL CHOLESTEROL (test code = 2220) 93 MG/DL CALC LDL CHOL (test code = 2237) 110 MG/DL RISK RATIO LDL/HDL (test cod e = 2238) 1.18 RATIO Delfino OrtaCOMPREHENSIVE METABOLIC [id number] 00:00:00* Test Item Value Reference Range Interpretation Comme nts GLUCOSE (test code = 2217) 93 MG/DL BUN (test code = 2208) 20 MG/DL CREATININE (test code = 2214) 1.18 MG/DL eGFR AMER. (test cod e = 69172) 61 ML/MIN/1.73 eGFR NON- AMER. (test code = 19410) 52 ML/MIN/1.73 CALC BUN/CREAT (test code = [...] = 2219) 15 U/L Delfino OrtaCBC W/AUTO [id number] 00:00:00* Test Item Value Reference Range Interpretation [...] code = 1015) 317 K/UL Delfino OrtaLIPID [id number] 00:00:00* Test Item Value Reference Range Interpretation Comme nts CHOLESTEROL (test code = 2210) 215 MG/DL TRIGLYCERIDES (test code = 2232) 61 MG/DL HDL CHOLESTEROL (test code = 2220) 93 MG/DL CALC LDL CHOL (test code = 2237) 110 MG/DL RISK RATIO LDL/HDL (test cod e = 2238) 1.18 RATIO Delfino OrtaCULTURE, URINE [ADDED]2017-08-24 00:00:00* Test Item Value Reference Range Interpretation Comme nts CULTURE, URINE (test code = 64332) SPECIMEN NUMBER: [id number] Delfino OrtaCULTURE, URINE [ADDED]2017-08-24 00:00:00* Test Item Value Reference Range Interpretation Comme nts CULTURE, URINE (test code = 86668) SPECIMEN NUMBER: [id number] Delfino OrtaCULTURE, URINE [ADDED]2017-08-24 00:00:00* Test Item Value Reference Range Interpretation Comme nts CULTURE, URINE (test code = 58843) SPECIMEN NUMBER: [id number] Delfino OrtaCULTURE, URINE [ADDED]2017-08-24 00:00:00* Test Item Value Reference Range Interpretation Comme nts CULTURE, URINE (test code = 74567) SPECIMEN NUMBER: [id number] Delfino OrtaCULTURE, URINE [ADDED]2017-08-24 00:00:00* Test Item Value Reference Range Interpretation Comme nts CULTURE, URINE (test code = 29393) SPECIMEN NUMBER: [id number] Delfino OrtaCULTURE, URINE [ADDED]2017-08-24 00:00:00* Test Item Value Reference Range Interpretation Comme nts CULTURE, URINE (test code = 40082) SPECIMEN NUMBER: [id number] Delfino OrtaCULTURE, URINE [ADDED]2017-08-24 00:00:00* Test Item Value Reference Range Interpretation Comme nts CULTURE, URINE (test code = 79252) SPECIMEN NUMBER: [id number] Delfino OrtaCULTURE, URINE [ADDED]2017-08-24 00:00:00* Test Item Value Reference Range Interpretation Comme nts CULTURE, URINE (test code = 62113) SPECIMEN NUMBER: [id number] Delfino OrtaCULTURE, URINE [ADDED]2017-08-24 00:00:00* Test Item Value Reference Range Interpretation Comme nts CULTURE, URINE (test code = 49442) SPECIMEN NUMBER: [id number] Delfino OrtaCULTURE, URINE [ADDED]2017-08-24 00:00:00* Test Item Value Reference Range Interpretation Comme nts CULTURE, URINE (test code = 15651) SPECIMEN NUMBER: [id number] Delfino OrtaCULTURE, URINE [ADDED]2017-08-24 00:00:00* Test Item Value Reference Range Interpretation Comme nts CULTURE, URINE (test code = 95003) SPECIMEN NUMBER: [id number] Delfino OrtaCULTURE, URINE [ADDED]2017-08-24 00:00:00* Test Item Value Reference Range Interpretation Comme nts CULTURE, URINE (test code = 50332) SPECIMEN NUMBER: [id number] Delfino OrtaCULTURE, URINE [ADDED]2017-08-24 00:00:00* Test Item Value Reference Range Interpretation Comme nts CULTURE, URINE (test code = 87139) SPECIMEN NUMBER: [id number] Delfino Schumacher AustinCULTURE, URINE [ADDED]2017-08-24 00:00:00* Test Item Value Reference Range Interpretation Comme nts CULTURE, URINE (test code = 21551) SPECIMEN NUMBER: [id number] CULTURE, URINE [ADDED]2017-08-24 00:00:00* Test Item Value Reference Range Interpretation Comme nts CULTURE, URINE (test code = 13388) SPECIMEN NUMBER: [id number] CULTURE, URINE [ADDED]2017-08-24 00:00:00* Test Item Value Reference Range Interpretation Comme nts CULTURE, URINE (test code = 62171) SPECIMEN NUMBER: [id number] CULTURE, URINE [ADDED]2017-08-24 00:00:00* Test Item Value Reference Range Interpretation Comme nts CULTURE, URINE (test code = 53651) SPECIMEN NUMBER: [id number] CULTURE, URINE [ADDED]2017-08-24 00:00:00* Test Item Value Reference Range Interpretation Comme nts CULTURE, URINE (test code = 48172) SPECIMEN NUMBER: [id number] Delfino Schumacher AustinCULTURE, URINE [ADDED]2017-08-24 00:00:00* Test Item Value Reference Range Interpretation Comme nts CULTURE, URINE (test code = 64899) SPECIMEN NUMBER: [id number] Delfino Schumacher AustinCULTURE, URINE [ADDED]2017-08-24 00:00:00* Test Item Value Reference Range Interpretation Comme nts CULTURE, URINE (test code = 27157) SPECIMEN NUMBER: [id number] Delfino OrtaCULTURE, URINE [ADDED]2017-08-24 00:00:00* Test Item Value Reference Range Interpretation Comme nts CULTURE, URINE (test code = 33889) SPECIMEN NUMBER: [id number] Delfino Schumacher AustinHEPATITIS C REFLEX [id number] 00:00:00* Test Item Value Reference Range Interpretation Comme nts HEPATITIS C ANTIBODY (test c ode = 4675) NON-REACTIVE Delfino Schumacher AustinHEPATITIS C REFLEX [id number] 00:00:00* Test Item Value Reference Range Interpretation Comme nts HEPATITIS C ANTIBODY (test c ode = 4675) NON-REACTIVE Delfino OrtaC W/AUTO [id number] 00:00:00* Test Item Value Reference Range Interpretation [...] code = 1016) (NOTE) Delfino OrtaCOMPREHENSIVE METABOLIC [id number] 00:00:00* Test Item Value Reference Range Interpretation Comme nts GLUCOSE (test code = 2217) 92 MG/DL BUN (test code = 2208) 23 MG/DL CREATININE (test code = 2214) 1.27 MG/DL eGFR AMER. (test cod e = 04811) 55 ML/MIN/1.73 eGFR NON- AMER. (test code = 55559) 48 ML/MIN/1.73 CALC BUN/CREAT (test code = [...] 2219) 23 U/L Delfino OrtaHEPATITIS C REFLEX [id number] 00:00:00* Test Item Value Reference Range Interpretation Comme nts HEPATITIS C ANTIBODY (test c ode = 4675) NON-REACTIVE Delfino OrtaCBC W/AUTO [id number] 00:00:00* Test Item Value Reference Range Interpretation [...] code = 1016) (NOTE) Delfino OrtaCOMPREHENSIVE METABOLIC [id number] 00:00:00* Test Item Value Reference Range Interpretation Comme nts GLUCOSE (test code = 2217) 92 MG/DL BUN (test code = 2208) 23 MG/DL CREATININE (test code = 2214) 1.27 MG/DL eGFR AMER. (test cod e = 06349) 55 ML/MIN/1.73 eGFR NON- AMER. (test code = 30934) 48 ML/MIN/1.73 CALC BUN/CREAT (test code = [...] 2219) 23 U/L Delfino OrtaHEPATITIS C REFLEX [id number] 00:00:00* Test Item Value Reference Range Interpretation Comme nts HEPATITIS C ANTIBODY (test c ode = 4675) NON-REACTIVE Delfino OrtaCBC W/AUTO [id number] 00:00:00* Test Item Value Reference Range Interpretation [...] code = 1016) (NOTE) Delfino OrtaCOMPREHENSIVE METABOLIC [id number] 00:00:00* Test Item Value Reference Range Interpretation Comme nts GLUCOSE (test code = 2217) 92 MG/DL BUN (test code = 2208) 23 MG/DL CREATININE (test code = 2214) 1.27 MG/DL eGFR AMER. (test cod e = 57603) 55 ML/MIN/1.73 eGFR NON- AMER. (test code = 56854) 48 ML/MIN/1.73 CALC BUN/CREAT (test code = [...] 23 U/L Delfino Schumacher YouHEPATITIS C REFLEX [id number] 00:00:00* Test Item Value Reference Range Interpretation Comme nts HEPATITIS C ANTIBODY (test c ode = 4675) NON-REACTIVE Delfino Schumacher YouCBC W/AUTO [id number] 00:00:00* Test Item Value Reference Range Interpretation [...] = 1016) (NOTE) Delfino Schumacher YouCOMPREHENSIVE METABOLIC [id number] 00:00:00* Test Item Value Reference Range Interpretation Comme nts GLUCOSE (test code = 2217) 92 MG/DL BUN (test code = 2208) 23 MG/DL CREATININE (test code = 2214) 1.27 MG/DL eGFR AMER. (test cod e = 73749) 55 ML/MIN/1.73 eGFR NON- AMER. (test code = 33666) 48 ML/MIN/1.73 CALC BUN/CREAT (test code = [...] 2219) 23 U/L Delfino OrtaHEPATITIS C REFLEX [id number] 00:00:00* Test Item Value Reference Range Interpretation Comme nts HEPATITIS C ANTIBODY (test c ode = 4675) NON-REACTIVE Delfino OrtaCBC W/AUTO [id number] 00:00:00* Test Item Value Reference Range Interpretation [...] code = 1016) (NOTE) Delfino OrtaCOMPREHENSIVE METABOLIC [id number] 00:00:00* Test Item Value Reference Range Interpretation Comme nts GLUCOSE (test code = 2217) 92 MG/DL BUN (test code = 2208) 23 MG/DL CREATININE (test code = 2214) 1.27 MG/DL eGFR AMER. (test cod e = 39664) 55 ML/MIN/1.73 eGFR NON- AMER. (test code = 60690) 48 ML/MIN/1.73 CALC BUN/CREAT (test code = [...] 2219) 23 U/L Delfino OrtaHEPATITIS C REFLEX [id number] 00:00:00* Test Item Value Reference Range Interpretation Comme nts HEPATITIS C ANTIBODY (test c ode = 4675) NON-REACTIVE Delfino OrtaCBC W/AUTO [id number] 00:00:00* Test Item Value Reference Range Interpretation [...] code = 1016) (NOTE) Delfino OrtaCOMPREHENSIVE METABOLIC [id number] 00:00:00* Test Item Value Reference Range Interpretation Comme nts GLUCOSE (test code = 2217) 92 MG/DL BUN (test code = 2208) 23 MG/DL CREATININE (test code = 2214) 1.27 MG/DL eGFR AMER. (test cod e = 82947) 55 ML/MIN/1.73 eGFR NON- AMER. (test code = 51466) 48 ML/MIN/1.73 CALC BUN/CREAT (test code = [...] 2219) 23 U/L Delfino OrtaHEPATITIS C REFLEX [id number] 00:00:00* Test Item Value Reference Range Interpretation Comme nts HEPATITIS C ANTIBODY (test c ode = 4675) NON-REACTIVE Delfino OrtaCBC W/AUTO [id number] 00:00:00* Test Item Value Reference Range Interpretation [...] code = 1016) (NOTE) Delfino OrtaCOMPREHENSIVE METABOLIC [id number] 00:00:00* Test Item Value Reference Range Interpretation Comme nts GLUCOSE (test code = 2217) 92 MG/DL BUN (test code = 2208) 23 MG/DL CREATININE (test code = 2214) 1.27 MG/DL eGFR AMER. (test cod e = 03054) 55 ML/MIN/1.73 eGFR NON- AMER. (test code = 61161) 48 ML/MIN/1.73 CALC BUN/CREAT (test code = [...] 2219) 23 U/L Delfino OrtaHEPATITIS C REFLEX [id number] 00:00:00* Test Item Value Reference Range Interpretation Comme nts HEPATITIS C ANTIBODY (test c ode = 4675) NON-REACTIVE Delfino Schumacher YouCBC W/AUTO [id number] 00:00:00* Test Item Value Reference Range Interpretation [...] (test code = 1016) (NOTE) Delfino F YouCOMPREHENSIVE METABOLIC [id number] 00:00:00* Test Item Value Reference Range Interpretation Comme nts GLUCOSE (test code = 2217) 92 MG/DL BUN (test code = 2208) 23 MG/DL CREATININE (test code = 2214) 1.27 MG/DL eGFR AMER. (test cod e = 09456) 55 ML/MIN/1.73 eGFR NON- AMER. (test code = 07009) 48 ML/MIN/1.73 CALC BUN/CREAT (test code = [...] 2219) 23 U/L Delfino OrtaHEPATITIS C REFLEX [id number] 00:00:00* Test Item Value Reference Range Interpretation Comme nts HEPATITIS C ANTIBODY (test c ode = 4675) NON-REACTIVE Delfino OrtaCBC W/AUTO [id number] 00:00:00* Test Item Value Reference Range Interpretation [...] code = 1016) (NOTE) Delfino OrtaCOMPREHENSIVE METABOLIC [id number] 00:00:00* Test Item Value Reference Range Interpretation Comme carlito GLUCOSE (test code = 2217) 92 MG/DL BUN (test code = 2208) 23 MG/DL CREATININE (test code = 2214) 1.27 MG/DL eGFR AMER. (test cod e = 15404) 55 ML/MIN/1.73 eGFR NON- AMER. (test code = 02261) 48 ML/MIN/1.73 CALC BUN/CREAT (test code = [...] 2219) 23 U/L Delfino OrtaHEPATITIS C REFLEX [id number] 00:00:00* Test Item Value Reference Range Interpretation Comme nts HEPATITIS C ANTIBODY (test c ode = 4675) NON-REACTIVE Delfino OrtaCBC W/AUTO [id number] 00:00:00* Test Item Value Reference Range Interpretation [...] code = 1016) (NOTE) Delfino OrtaCOMPREHENSIVE METABOLIC [id number] 00:00:00* Test Item Value Reference Range Interpretation Comme nts GLUCOSE (test code = 2217) 92 MG/DL BUN (test code = 2208) 23 MG/DL CREATININE (test code = 2214) 1.27 MG/DL eGFR AMER. (test cod e = 71848) 55 ML/MIN/1.73 eGFR NON- AMER. (test code = 95656) 48 ML/MIN/1.73 CALC BUN/CREAT (test code = [...] 2219) 23 U/L Delfino OrtaHEPATITIS C REFLEX [id number] 00:00:00* Test Item Value Reference Range Interpretation Comme nts HEPATITIS C ANTIBODY (test c ode = 4675) NON-REACTIVE Delfino OrtaCBC W/AUTO [id number] 00:00:00* Test Item Value Reference Range Interpretation [...] = 1016) (NOTE) Delfino Schumacher YouCOMPREHENSIVE METABOLIC [id number] 00:00:00* Test Item Value Reference Range Interpretation Comme nts GLUCOSE (test code = 2217) 92 MG/DL BUN (test code = 2208) 23 MG/DL CREATININE (test code = 2214) 1.27 MG/DL eGFR AMER. (test cod e = 91614) 55 ML/MIN/1.73 eGFR NON- AMER. (test code = 28547) 48 ML/MIN/1.73 CALC BUN/CREAT (test code = [...] 23 U/L Delfino Schumacher YouHEPATITIS C REFLEX [id number] 00:00:00* Test Item Value Reference Range Interpretation Comme nts HEPATITIS C ANTIBODY (test c ode = 4675) NON-REACTIVE Delfino Schmuacher YouCBC W/AUTO [id number] 00:00:00* Test Item Value Reference Range Interpretation [...] (test code = 1016) (NOTE) CBC W/AUTO [id number] 00:00:00* Test Item Value Reference Range Interpretation [...] code = 1016) (NOTE) Delfino OrtaCBC W/AUTO [id number] 00:00:00* Test Item Value Reference Range Interpretation [...] code = 1016) (NOTE) Delfino OrtaCOMPREHENSIVE METABOLIC [id number] 00:00:00* Test Item Value Reference Range Interpretation Comme nts GLUCOSE (test code = 2217) 92 MG/DL BUN (test code = 2208) 23 MG/DL CREATININE (test code = 2214) 1.27 MG/DL eGFR AMER. (test cod e = 09707) 55 ML/MIN/1.73 eGFR NON- AMER. (test code = 02624) 48 ML/MIN/1.73 CALC BUN/CREAT (test code = [...] (test code = 2219) 23 U/L Delfino OrtaCOMPREHENSIVE METABOLIC [id number] 00:00:00* Test Item Value Reference Range Interpretation Comme nts GLUCOSE (test code = 2217) 92 MG/DL BUN (test code = 2208) 23 MG/DL CREATININE (test code = 2214) 1.27 MG/DL eGFR AMER. (test cod e = 66476) 55 ML/MIN/1.73 eGFR NON- AMER. (test code = 52250) 48 ML/MIN/1.73 CALC BUN/CREAT (test code = [...] = 2219) 23 U/L HEPATITIS C REFLEX [id number] 00:00:00* Test Item Value Reference Range Interpretation Comme nts HEPATITIS C ANTIBODY (test c ode = 4675) NON-REACTIVE CBC W/AUTO [id number] 00:00:00* Test Item Value Reference Range Interpretation [...] (test code = 1016) (NOTE) COMPREHENSIVE METABOLIC [id number] 00:00:00* Test Item Value Reference Range Interpretation Comme nts GLUCOSE (test code = 2217) 92 MG/DL BUN (test code = 2208) 23 MG/DL CREATININE (test code = 2214) 1.27 MG/DL eGFR AMER. (test cod e = 42211) 55 ML/MIN/1.73 eGFR NON- AMER. (test code = 93324) 48 ML/MIN/1.73 CALC BUN/CREAT (test code = [...] = 2219) 23 U/L HEPATITIS C REFLEX [id number] 00:00:00* Test Item Value Reference Range Interpretation Comme nts HEPATITIS C ANTIBODY (test c ode = 4675) NON-REACTIVE CBC W/AUTO [id number] 00:00:00* Test Item Value Reference Range Interpretation [...] (test code = 1016) (NOTE) COMPREHENSIVE METABOLIC [id number] 00:00:00* Test Item Value Reference Range Interpretation Comme nts GLUCOSE (test code = 2217) 92 MG/DL BUN (test code = 2208) 23 MG/DL CREATININE (test code = 2214) 1.27 MG/DL eGFR AMER. (test cod e = 55112) 55 ML/MIN/1.73 eGFR NON- AMER. (test code = 45931) 48 ML/MIN/1.73 CALC BUN/CREAT (test code = [...] = 2219) 23 U/L HEPATITIS C REFLEX [id number] 00:00:00* Test Item Value Reference Range Interpretation Comme nts HEPATITIS C ANTIBODY (test c ode = 4675) NON-REACTIVE CBC W/AUTO [id number] 00:00:00* Test Item Value Reference Range Interpretation [...] (test code = 1016) (NOTE) COMPREHENSIVE METABOLIC [id number] 00:00:00* Test Item Value Reference Range Interpretation Comme nts GLUCOSE (test code = 2217) 92 MG/DL BUN (test code = 2208) 23 MG/DL CREATININE (test code = 2214) 1.27 MG/DL eGFR AMER. (test cod e = 36027) 55 ML/MIN/1.73 eGFR NON- AMER. (test code = 47780) 48 ML/MIN/1.73 CALC BUN/CREAT (test code = [...] = 2219) 23 U/L HEPATITIS C REFLEX [id number] 00:00:00* Test Item Value Reference Range Interpretation Comme nts HEPATITIS C ANTIBODY (test c ode = 4675) NON-REACTIVE HEPATITIS C REFLEX [id number] 00:00:00* Test Item Value Reference Range Interpretation Comme nts HEPATITIS C ANTIBODY (test c ode = 4675) NON-REACTIVE Delfino OrtaCBC W/AUTO [id number] 00:00:00* Test Item Value Reference Range Interpretation [...] code = 1016) (NOTE) Delfino OrtaCOMPREHENSIVE METABOLIC [id number] 00:00:00* Test Item Value Reference Range Interpretation Comme nts GLUCOSE (test code = 2217) 92 MG/DL BUN (test code = 2208) 23 MG/DL CREATININE (test code = 2214) 1.27 MG/DL eGFR AMER. (test cod e = 24424) 55 ML/MIN/1.73 eGFR NON- AMER. (test code = 18041) 48 ML/MIN/1.73 CALC BUN/CREAT (test code = [...] 23 U/L Delfino Schumacher YouHEPATITIS C REFLEX [id number] 00:00:00* Test Item Value Reference Range Interpretation Comme nts HEPATITIS C ANTIBODY (test c ode = 4675) NON-REACTIVE Delfino Schumacher YouCBC W/AUTO [id number] 00:00:00* Test Item Value Reference Range Interpretation [...] code = 1016) (NOTE) Delfino OrtaCOMPREHENSIVE METABOLIC [id number] 00:00:00* Test Item Value Reference Range Interpretation Comme nts GLUCOSE (test code = 2217) 92 MG/DL BUN (test code = 2208) 23 MG/DL CREATININE (test code = 2214) 1.27 MG/DL eGFR AMER. (test cod e = 60440) 55 ML/MIN/1.73 eGFR NON- AMER. (test code = 71966) 48 ML/MIN/1.73 CALC BUN/CREAT (test code = [...] 2219) 23 U/L Delfino OrtaHEPATITIS C REFLEX [id number] 00:00:00* Test Item Value Reference Range Interpretation Comme nts HEPATITIS C ANTIBODY (test c ode = 4675) NON-REACTIVE Delfino Schumacher AustinCOMPREHENSIVE METABOLIC [id number] 00:00:00* Test Item Value Reference Range Interpretation Comme nts GLUCOSE (test code = 2217) 92 MG/DL BUN (test code = 2208) 23 MG/DL CREATININE (test code = 2214) 1.27 MG/DL eGFR AMER. (test cod e = 02458) 55 ML/MIN/1.73 eGFR NON- AMER. (test code = 42933) 48 ML/MIN/1.73 CALC BUN/CREAT (test code = [...] = 2219) 23 U/L Delfino OrtaCBC W/AUTO [id number] 00:00:00* Test Item Value Reference Range Interpretation [...] code = 1016) (NOTE) Delfino OrtaCOMPREHENSIVE METABOLIC [id number] 00:00:00* Test Item Value Reference Range Interpretation Comme nts GLUCOSE (test code = 2217) 92 MG/DL BUN (test code = 2208) 23 MG/DL CREATININE (test code = 2214) 1.27 MG/DL eGFR AMER. (test cod e = ) 55 ML/MIN/1.73 eGFR NON- AMER. (test code = 36650) 48 ML/MIN/1.73 CALC BUN/CREAT (test code = [...] 2219) 23 U/L Delfino OrtaHEPATITIS C REFLEX [id number] 00:00:00* Test Item Value Reference Range Interpretation Comme nts HEPATITIS C ANTIBODY (test c ode = 4675) NON-REACTIVE Delfino OrtaCBC W/AUTO [id number] 00:00:00* Test Item Value Reference Range Interpretation [...] code = 1016) (NOTE) Delfino OrtaCOMPREHENSIVE METABOLIC [id number] 00:00:00* Test Item Value Reference Range Interpretation Comme nts GLUCOSE (test code = 2217) 92 MG/DL BUN (test code = 2208) 23 MG/DL CREATININE (test code = 2214) 1.27 MG/DL eGFR AMER. (test cod e = 57422) 55 ML/MIN/1.73 eGFR NON- AMER. (test code = 12351) 48 ML/MIN/1.73 CALC BUN/CREAT (test code = [...] code = 2219) 23 U/L Delfino OrtaLIPID [id number] 00:00:00* Test Item Value Reference Range Interpretation Comme nts CHOLESTEROL (test code = 2210) 211 MG/DL TRIGLYCERIDES (test code = 2232) 52 MG/DL HDL CHOLESTEROL (test code = 2220) 90 MG/DL CALC LDL CHOL (test code = 2237) 111 MG/DL RISK RATIO LDL/HDL (test cod e = 2238) 1.23 RATIO Delfino OrtaCBC W/AUTO [id number] 00:00:00* Test Item Value Reference Range Interpretation [...] code = 1016) (NOTE) Delfino OrtaCOMPREHENSIVE METABOLIC [id number] 00:00:00* Test Item Value Reference Range Interpretation Comme nts GLUCOSE (test code = 2217) 88 MG/DL BUN (test code = 2208) 24 MG/DL CREATININE (test code = 2214) 0.94 MG/DL eGFR AMER. (test cod e = 39049) 80 ML/MIN/1.73 eGFR NON- AMER. (test code = 19487) 69 ML/MIN/1.73 CALC BUN/CREAT (test code = [...] code = 2219) 10 U/L Delfino OrtaLIPID [id number] 00:00:00* Test Item Value Reference Range Interpretation Comme nts CHOLESTEROL (test code = 2210) 211 MG/DL TRIGLYCERIDES (test code = 2232) 52 MG/DL HDL CHOLESTEROL (test code = 2220) 90 MG/DL CALC LDL CHOL (test code = 2237) 111 MG/DL RISK RATIO LDL/HDL (test cod e = 2238) 1.23 RATIO Delfino OrtaCBC W/AUTO [id number] 00:00:00* Test Item Value Reference Range Interpretation [...] = 1016) (NOTE) Delfino Schumacher YouCOMPREHENSIVE METABOLIC [id number] 00:00:00* Test Item Value Reference Range Interpretation Comme nts GLUCOSE (test code = 2217) 88 MG/DL BUN (test code = 2208) 24 MG/DL CREATININE (test code = 2214) 0.94 MG/DL eGFR AMER. (test cod e = 37132) 80 ML/MIN/1.73 eGFR NON- AMER. (test code = 42463) 69 ML/MIN/1.73 CALC BUN/CREAT (test code = [...] code = 2219) 10 U/L Delfino OrtaLIPID [id number] 00:00:00* Test Item Value Reference Range Interpretation Comme nts CHOLESTEROL (test code = 2210) 211 MG/DL TRIGLYCERIDES (test code = 2232) 52 MG/DL HDL CHOLESTEROL (test code = 2220) 90 MG/DL CALC LDL CHOL (test code = 2237) 111 MG/DL RISK RATIO LDL/HDL (test cod e = 2238) 1.23 RATIO Delfino OrtaCBC W/AUTO [id number] 00:00:00* Test Item Value Reference Range Interpretation [...] code = 1016) (NOTE) Delfino OrtaCOMPREHENSIVE METABOLIC [id number] 00:00:00* Test Item Value Reference Range Interpretation Comme nts GLUCOSE (test code = 2217) 88 MG/DL BUN (test code = 2208) 24 MG/DL CREATININE (test code = 2214) 0.94 MG/DL eGFR AMER. (test cod e = 21998) 80 ML/MIN/1.73 eGFR NON- AMER. (test code = 79756) 69 ML/MIN/1.73 CALC BUN/CREAT (test code = [...] = 2219) 10 U/L Delfino Endy OrtaLIPID [id number] 00:00:00* Test Item Value Reference Range Interpretation Comme nts CHOLESTEROL (test code = 2210) 211 MG/DL TRIGLYCERIDES (test code = 2232) 52 MG/DL HDL CHOLESTEROL (test code = 2220) 90 MG/DL CALC LDL CHOL (test code = 2237) 111 MG/DL RISK RATIO LDL/HDL (test cod e = 2238) 1.23 RATIO Delfino Schumacher YouCBC W/AUTO [id number] 00:00:00* Test Item Value Reference Range Interpretation [...] code = 1016) (NOTE) Delfino OrtaCOMPREHENSIVE METABOLIC [id number] 00:00:00* Test Item Value Reference Range Interpretation Comme nts GLUCOSE (test code = 2217) 88 MG/DL BUN (test code = 2208) 24 MG/DL CREATININE (test code = 2214) 0.94 MG/DL eGFR AMER. (test cod e = 18206) 80 ML/MIN/1.73 eGFR NON- AMER. (test code = 34177) 69 ML/MIN/1.73 CALC BUN/CREAT (test code = [...] code = 2219) 10 U/L Delfino OrtaLIPID [id number] 00:00:00* Test Item Value Reference Range Interpretation Comme nts CHOLESTEROL (test code = 2210) 211 MG/DL TRIGLYCERIDES (test code = 2232) 52 MG/DL HDL CHOLESTEROL (test code = 2220) 90 MG/DL CALC LDL CHOL (test code = 2237) 111 MG/DL RISK RATIO LDL/HDL (test cod e = 2238) 1.23 RATIO Delfinosurinder OrtaCBC W/AUTO [id number] 00:00:00* Test Item Value Reference Range Interpretation [...] code = 1016) (NOTE) Delfino OrtaCOMPREHENSIVE METABOLIC [id number] 00:00:00* Test Item Value Reference Range Interpretation Comme nts GLUCOSE (test code = 2217) 88 MG/DL BUN (test code = 2208) 24 MG/DL CREATININE (test code = 2214) 0.94 MG/DL eGFR AMER. (test cod e = 18026) 80 ML/MIN/1.73 eGFR NON- AMER. (test code = 68786) 69 ML/MIN/1.73 CALC BUN/CREAT (test code = [...] (test code = 2219) 10 U/L Delfino OtraLIPID [id number] 00:00:00* Test Item Value Reference Range Interpretation Comme nts CHOLESTEROL (test code = 2210) 211 MG/DL TRIGLYCERIDES (test code = 2232) 52 MG/DL HDL CHOLESTEROL (test code = 2220) 90 MG/DL CALC LDL CHOL (test code = 2237) 111 MG/DL RISK RATIO LDL/HDL (test cod e = 2238) 1.23 RATIO Delfino Schumacher YouCBC W/AUTO [id number] 00:00:00* Test Item Value Reference Range Interpretation [...] = 1016) (NOTE) Delfino Schumacher YouCOMPREHENSIVE METABOLIC [id number] 00:00:00* Test Item Value Reference Range Interpretation Comme nts GLUCOSE (test code = 2217) 88 MG/DL BUN (test code = 2208) 24 MG/DL CREATININE (test code = 2214) 0.94 MG/DL eGFR AMER. (test cod e = 12156) 80 ML/MIN/1.73 eGFR NON- AMER. (test code = 92383) 69 ML/MIN/1.73 CALC BUN/CREAT (test code = [...] code = 2219) 10 U/L Delfino OrtaLIPID [id number] 00:00:00* Test Item Value Reference Range Interpretation Comme nts CHOLESTEROL (test code = 2210) 211 MG/DL TRIGLYCERIDES (test code = 2232) 52 MG/DL HDL CHOLESTEROL (test code = 2220) 90 MG/DL CALC LDL CHOL (test code = 2237) 111 MG/DL RISK RATIO LDL/HDL (test cod e = 2238) 1.23 RATIO Delfino OrtaCBC W/AUTO [id number] 00:00:00* Test Item Value Reference Range Interpretation [...] code = 1016) (NOTE) Delfino OrtaCOMPREHENSIVE METABOLIC [id number] 00:00:00* Test Item Value Reference Range Interpretation Comme nts GLUCOSE (test code = 2217) 88 MG/DL BUN (test code = 2208) 24 MG/DL CREATININE (test code = 2214) 0.94 MG/DL eGFR AMER. (test cod e = 01327) 80 ML/MIN/1.73 eGFR NON- AMER. (test code = 48846) 69 ML/MIN/1.73 CALC BUN/CREAT (test code = [...] code = 2219) 10 U/L Delfino OrtaLIPID [id number] 00:00:00* Test Item Value Reference Range Interpretation Comme nts CHOLESTEROL (test code = 2210) 211 MG/DL TRIGLYCERIDES (test code = 2232) 52 MG/DL HDL CHOLESTEROL (test code = 2220) 90 MG/DL CALC LDL CHOL (test code = 2237) 111 MG/DL RISK RATIO LDL/HDL (test cod e = 2238) 1.23 RATIO Delfino Schumacher YouCBC W/AUTO [id number] 00:00:00* Test Item Value Reference Range Interpretation [...] = 1016) (NOTE) Delfino Schumacher YouCOMPREHENSIVE METABOLIC [id number] 00:00:00* Test Item Value Reference Range Interpretation Comme nts GLUCOSE (test code = 2217) 88 MG/DL BUN (test code = 2208) 24 MG/DL CREATININE (test code = 2214) 0.94 MG/DL eGFR AMER. (test cod e = 96378) 80 ML/MIN/1.73 eGFR NON- AMER. (test code = 42665) 69 ML/MIN/1.73 CALC BUN/CREAT (test code = [...] code = 2219) 10 U/L Delfino OrtaLIPID [id number] 00:00:00* Test Item Value Reference Range Interpretation Comme nts CHOLESTEROL (test code = 2210) 211 MG/DL TRIGLYCERIDES (test code = 2232) 52 MG/DL HDL CHOLESTEROL (test code = 2220) 90 MG/DL CALC LDL CHOL (test code = 2237) 111 MG/DL RISK RATIO LDL/HDL (test cod e = 2238) 1.23 RATIO Delfino Endy YouCBC W/AUTO [id number] 00:00:00* Test Item Value Reference Range Interpretation [...] code = 1016) (NOTE) Delfino OrtaCOMPREHENSIVE METABOLIC [id number] 00:00:00* Test Item Value Reference Range Interpretation Comme nts GLUCOSE (test code = 2217) 88 MG/DL BUN (test code = 2208) 24 MG/DL CREATININE (test code = 2214) 0.94 MG/DL eGFR AMER. (test cod e = 41151) 80 ML/MIN/1.73 eGFR NON- AMER. (test code = 82166) 69 ML/MIN/1.73 CALC BUN/CREAT (test code = [...] code = 2219) 10 U/L Delfino OrtaLIPID [id number] 00:00:00* Test Item Value Reference Range Interpretation Comme nts CHOLESTEROL (test code = 2210) 211 MG/DL TRIGLYCERIDES (test code = 2232) 52 MG/DL HDL CHOLESTEROL (test code = 2220) 90 MG/DL CALC LDL CHOL (test code = 2237) 111 MG/DL RISK RATIO LDL/HDL (test cod e = 2238) 1.23 RATIO Delfino OrtaCBC W/AUTO [id number] 00:00:00* Test Item Value Reference Range Interpretation [...] code = 1016) (NOTE) Delfino OrtaCOMPREHENSIVE METABOLIC [id number] 00:00:00* Test Item Value Reference Range Interpretation Comme nts GLUCOSE (test code = 2217) 88 MG/DL BUN (test code = 2208) 24 MG/DL CREATININE (test code = 2214) 0.94 MG/DL eGFR AMER. (test cod e = 61382) 80 ML/MIN/1.73 eGFR NON- AMER. (test code = 47625) 69 ML/MIN/1.73 CALC BUN/CREAT (test code = [...] code = 2219) 10 U/L Delfino OrtaLIPID [id number] 00:00:00* Test Item Value Reference Range Interpretation Comme nts CHOLESTEROL (test code = 2210) 211 MG/DL TRIGLYCERIDES (test code = 2232) 52 MG/DL HDL CHOLESTEROL (test code = 2220) 90 MG/DL CALC LDL CHOL (test code = 2237) 111 MG/DL RISK RATIO LDL/HDL (test cod e = 2238) 1.23 RATIO Delfino OrtaCBC W/AUTO [id number] 00:00:00* Test Item Value Reference Range Interpretation [...] code = 1016) (NOTE) Delfino OrtaCOMPREHENSIVE METABOLIC [id number] 00:00:00* Test Item Value Reference Range Interpretation Comme nts GLUCOSE (test code = 2217) 88 MG/DL BUN (test code = 2208) 24 MG/DL CREATININE (test code = 2214) 0.94 MG/DL eGFR AMER. (test cod e = 33283) 80 ML/MIN/1.73 eGFR NON- AMER. (test code = 80389) 69 ML/MIN/1.73 CALC BUN/CREAT (test code = [...] code = 2219) 10 U/L Delfino OrtaLIPID [id number] 00:00:00* Test Item Value Reference Range Interpretation Comme nts CHOLESTEROL (test code = 2210) 211 MG/DL TRIGLYCERIDES (test code = 2232) 52 MG/DL HDL CHOLESTEROL (test code = 2220) 90 MG/DL CALC LDL CHOL (test code = 2237) 111 MG/DL RISK RATIO LDL/HDL (test cod e = 2238) 1.23 RATIO Delfino OrtaCBC W/AUTO [id number] 00:00:00* Test Item Value Reference Range Interpretation [...] (test code = 1016) (NOTE) COMPREHENSIVE METABOLIC [id number] 00:00:00* Test Item Value Reference Range Interpretation Comme nts GLUCOSE (test code = 2217) 88 MG/DL BUN (test code = 2208) 24 MG/DL CREATININE (test code = 2214) 0.94 MG/DL eGFR AMER. (test cod e = 54095) 80 ML/MIN/1.73 eGFR NON- AMER. (test code = 51688) 69 ML/MIN/1.73 CALC BUN/CREAT (test code = [...] ALT (test code = 2219) 10 U/L CBC W/AUTO [id number] 00:00:00* Test Item Value Reference Range Interpretation [...] code = 1016) (NOTE) Delfino Schumacher [place]IP[place] [id number] 00:00:00* Test Item Value Reference Range Interpretation Comme nts CHOLESTEROL (test code = 2210) 211 MG/DL TRIGLYCERIDES (test code = 2232) 52 MG/DL HDL CHOLESTEROL (test code = 2220) 90 MG/DL CALC LDL CHOL (test code = 2237) 111 MG/DL RISK RATIO LDL/HDL (test cod e = 2238) 1.23 RATIO CBC W/AUTO [id number] 00:00:00* Test Item Value Reference Range Interpretation [...] (test code = 1016) (NOTE) COMPREHENSIVE METABOLIC [id number] 00:00:00* Test Item Value Reference Range Interpretation Comme nts GLUCOSE (test code = 2217) 88 MG/DL BUN (test code = 2208) 24 MG/DL CREATININE (test code = 2214) 0.94 MG/DL eGFR AMER. (test cod e = 50126) 80 ML/MIN/1.73 eGFR NON- AMER. (test code = 36191) 69 ML/MIN/1.73 CALC BUN/CREAT (test code = [...] (test code = 2219) 10 U/L LIPID [id number] 00:00:00* Test Item Value Reference Range Interpretation Comme nts CHOLESTEROL (test code = 2210) 211 MG/DL TRIGLYCERIDES (test code = 2232) 52 MG/DL HDL CHOLESTEROL (test code = 2220) 90 MG/DL CALC LDL CHOL (test code = 2237) 111 MG/DL RISK RATIO LDL/HDL (test cod e = 2238) 1.23 RATIO CBC W/AUTO [id number] 00:00:00* Test Item Value Reference Range Interpretation [...] (test code = 1016) (NOTE) COMPREHENSIVE METABOLIC [id number] 00:00:00* Test Item Value Reference Range Interpretation Comme nts GLUCOSE (test code = 2217) 88 MG/DL BUN (test code = 2208) 24 MG/DL CREATININE (test code = 2214) 0.94 MG/DL eGFR AMER. (test cod e = 18002) 80 ML/MIN/1.73 eGFR NON- AMER. (test code = 60738) 69 ML/MIN/1.73 CALC BUN/CREAT (test code = [...] (test code = 2219) 10 U/L LIPID [id number] 00:00:00* Test Item Value Reference Range Interpretation Comme nts CHOLESTEROL (test code = 2210) 211 MG/DL TRIGLYCERIDES (test code = 2232) 52 MG/DL HDL CHOLESTEROL (test code = 2220) 90 MG/DL CALC LDL CHOL (test code = 2237) 111 MG/DL RISK RATIO LDL/HDL (test cod e = 2238) 1.23 RATIO CBC W/AUTO [id number] 00:00:00* Test Item Value Reference Range Interpretation [...] (test code = 1016) (NOTE) COMPREHENSIVE METABOLIC [id number] 00:00:00* Test Item Value Reference Range Interpretation Comme nts GLUCOSE (test code = 2217) 88 MG/DL BUN (test code = 2208) 24 MG/DL CREATININE (test code = 2214) 0.94 MG/DL eGFR AMER. (test cod e = 84331) 80 ML/MIN/1.73 eGFR NON- AMER. (test code = 53955) 69 ML/MIN/1.73 CALC BUN/CREAT (test code = [...] (test code = 2219) 10 U/L LIPID [id number] 00:00:00* Test Item Value Reference Range Interpretation Comme nts CHOLESTEROL (test code = 2210) 211 MG/DL TRIGLYCERIDES (test code = 2232) 52 MG/DL HDL CHOLESTEROL (test code = 2220) 90 MG/DL CALC LDL CHOL (test code = 2237) 111 MG/DL RISK RATIO LDL/HDL (test cod e = 2238) 1.23 RATIO COMPREHENSIVE METABOLIC [id number] 00:00:00* Test Item Value Reference Range Interpretation Comme nts GLUCOSE (test code = 2217) 88 MG/DL BUN (test code = 2208) 24 MG/DL CREATININE (test code = 2214) 0.94 MG/DL eGFR AMER. (test cod e = 98477) 80 ML/MIN/1.73 eGFR NON- AMER. (test code = 58897) 69 ML/MIN/1.73 CALC BUN/CREAT (test code = [...] code = 2219) 10 U/L Delfino Schumacher [place] [id number] 00:00:00* Test Item Value Reference Range Interpretation Comme nts CHOLESTEROL (test code = 2210) 211 MG/DL TRIGLYCERIDES (test code = 2232) 52 MG/DL HDL CHOLESTEROL (test code = 2220) 90 MG/DL CALC LDL CHOL (test code = 2237) 111 MG/DL RISK RATIO LDL/HDL (test cod e = 2238) 1.23 RATIO [facility] [id number] 00:00:00* Test Item Value Reference Range Interpretation [...] (test code = 1016) (NOTE) Delfino Schumacher [facility] W/AUTO [id number] 00:00:00* Test Item Value Reference Range Interpretation [...] = 1016) (NOTE) Delfino Schumacher YouCOMPREHENSIVE METABOLIC [id number] 00:00:00* Test Item Value Reference Range Interpretation Comme nts GLUCOSE (test code = 2217) 88 MG/DL BUN (test code = 2208) 24 MG/DL CREATININE (test code = 2214) 0.94 MG/DL eGFR AMER. (test cod e = 44367) 80 ML/MIN/1.73 eGFR NON- AMER. (test code = 43255) 69 ML/MIN/1.73 CALC BUN/CREAT (test code = [...] code = 2219) 10 U/L Delfino OrtaLIPID [id number] 00:00:00* Test Item Value Reference Range Interpretation Comme nts CHOLESTEROL (test code = 2210) 211 MG/DL TRIGLYCERIDES (test code = 2232) 52 MG/DL HDL CHOLESTEROL (test code = 2220) 90 MG/DL CALC LDL CHOL (test code = 2237) 111 MG/DL RISK RATIO LDL/HDL (test cod e = 2238) 1.23 RATIO [facility]ino [facility] [id number] 00:00:00* Test Item Value Reference Range Interpretation [...] code = 1016) (NOTE) Delfino OrtaCOMPREHENSIVE METABOLIC [id number] 00:00:00* Test Item Value Reference Range Interpretation Comme nts GLUCOSE (test code = 2217) 88 MG/DL BUN (test code = 2208) 24 MG/DL CREATININE (test code = 2214) 0.94 MG/DL eGFR AMER. (test cod e = 26561) 80 ML/MIN/1.73 eGFR NON- AMER. (test code = 60104) 69 ML/MIN/1.73 CALC BUN/CREAT (test code = [...] = 2219) 10 U/L Delfino Schumacher [place] [id number] 00:00:00* Test Item Value Reference Range Interpretation Comme nts CHOLESTEROL (test code = 2210) 211 MG/DL TRIGLYCERIDES (test code = 2232) 52 MG/DL HDL CHOLESTEROL (test code = 2220) 90 MG/DL CALC LDL CHOL (test code = 2237) 111 MG/DL RISK RATIO LDL/HDL (test cod e = 2238) 1.23 RATIO Delfino OrtaCBC W/AUTO [id number] 00:00:00* Test Item Value Reference Range Interpretation [...] code = 1016) (NOTE) Delfino OrtaCOMPREHENSIVE METABOLIC [id number] 00:00:00* Test Item Value Reference Range Interpretation Comme nts GLUCOSE (test code = 2217) 88 MG/DL BUN (test code = 2208) 24 MG/DL CREATININE (test code = 2214) 0.94 MG/DL eGFR AMER. (test cod e = 23747) 80 ML/MIN/1.73 eGFR NON- AMER. (test code = 25530) 69 ML/MIN/1.73 CALC BUN/CREAT (test code = [...] code = 2219) 10 U/L Delfino Schumacher [place] [id number] 00:00:00* Test Item Value Reference Range Interpretation Comme nts CHOLESTEROL (test code = 2210) 211 MG/DL TRIGLYCERIDES (test code = 2232) 52 MG/DL HDL CHOLESTEROL (test code = 2220) 90 MG/DL CALC LDL CHOL (test code = 2237) 111 MG/DL RISK RATIO LDL/HDL (test cod e = 2238) 1.23 RATIO Delfino OrtaCOMPREHENSIVE METABOLIC [id number] 00:00:00* Test Item Value Reference Range Interpretation Comme nts GLUCOSE (test code = 2217) 88 MG/DL BUN (test code = 2208) 24 MG/DL CREATININE (test code = 2214) 0.94 MG/DL eGFR AMER. (test cod e = 47186) 80 ML/MIN/1.73 eGFR NON- AMER. (test code = 96858) 69 ML/MIN/1.73 CALC BUN/CREAT (test code = [...] code = 2219) 10 U/L Delfino OrtaLIPID [id number] 00:00:00* Test Item Value Reference Range Interpretation Comme nts CHOLESTEROL (test code = 2210) 211 MG/DL TRIGLYCERIDES (test code = 2232) 52 MG/DL HDL CHOLESTEROL (test code = 2220) 90 MG/DL CALC LDL CHOL (test code = 2237) 111 MG/DL RISK RATIO LDL/HDL (test cod e = 2238) 1.23 RATIO Delfino OrtaCBC W/AUTO [id number] 00:00:00* Test Item Value Reference Range Interpretation [...] code = 1016) (NOTE) Delfino OrtaCOMPREHENSIVE METABOLIC [id number] 00:00:00* Test Item Value Reference Range Interpretation Comme nts GLUCOSE (test code = 2217) 88 MG/DL BUN (test code = 2208) 24 MG/DL CREATININE (test code = 2214) 0.94 MG/DL eGFR AMER. (test cod e = 78355) 80 ML/MIN/1.73 eGFR NON- AMER. (test code = 62676) 69 ML/MIN/1.73 CALC BUN/CREAT (test code = [...] = 2219) 10 U/L Delfino Schumacher [place] [id number] 00:00:00* Test Item Value Reference Range Interpretation Comme nts URIC ACID (test code = 2233) 7.5 MG/DL Delfino Schumacher AustinVIT[place]IN D, 25 [id number] 00:00:00* Test Item Value Reference Range Interpretation Comme nts VITAMIN D, 25 OH (test code = 4958) 36 NG/ML Delfino Schumacher [place] [id number] 00:00:00* Test Item Value Reference Range Interpretation Comme nts URIC ACID (test code = 2233) 7.5 MG/DL Delfino Schumacher [place] D, 25 [id number] 00:00:00* Test Item Value Reference Range Interpretation Comme nts VITAMIN D, 25 OH (test code = 4958) 36 NG/ML Delfino Schumacher [place] [id number] 00:00:00* Test Item Value Reference Range Interpretation Comme nts URIC ACID (test code = 2233) 7.5 MG/DL Delfino Schumacher [place]AMIN D, 25 [id number] 00:00:00* Test Item Value Reference Range Interpretation Comme nts VITAMIN D, 25 OH (test code = 4958) 36 NG/ML Delfino Schumacher [place] [id number] 00:00:00* Test Item Value Reference Range Interpretation Comme nts URIC ACID (test code = 2233) 7.5 MG/DL Delfino Schumacher [place] D, 25 [id number] 00:00:00* Test Item Value Reference Range Interpretation Comme nts VITAMIN D, 25 OH (test code = 4958) 36 NG/ML Delfino Schumacher [place] [id number] 00:00:00* Test Item Value Reference Range Interpretation Comme nts URIC ACID (test code = 2233) 7.5 MG/DL Delfino Schumacher [place] D, 25 [id number] 00:00:00* Test Item Value Reference Range Interpretation Comme nts VITAMIN D, 25 OH (test code = 4958) 36 NG/ML Delfino Schumacher [place] [id number] 00:00:00* Test Item Value Reference Range Interpretation Comme nts URIC ACID (test code = 2233) 7.5 MG/DL Delfino Schumacher [place] D, 25 [id number] 00:00:00* Test Item Value Reference Range Interpretation Comme nts VITAMIN D, 25 OH (test code = 4958) 36 NG/ML Delfino Schumacher [place] [id number] 00:00:00* Test Item Value Reference Range Interpretation Comme nts URIC ACID (test code = 2233) 7.5 MG/DL Delfino Schumacher [place] D, 25 [id number] 00:00:00* Test Item Value Reference Range Interpretation Comme nts VITAMIN D, 25 OH (test code = 4958) 36 NG/ML Delfino Schumacher [place] [id number] 00:00:00* Test Item Value Reference Range Interpretation Comme nts URIC ACID (test code = 2233) 7.5 MG/DL Delfino Schumacher [place] D, 25 [id number] 00:00:00* Test Item Value Reference Range Interpretation Comme nts VITAMIN D, 25 OH (test code = 4958) 36 NG/ML Delfino Schumacher [place] [id number] 00:00:00* Test Item Value Reference Range Interpretation Comme nts URIC ACID (test code = 2233) 7.5 MG/DL Delfino Schumacher [place] D, 25 [id number] 00:00:00* Test Item Value Reference Range Interpretation Comme nts VITAMIN D, 25 OH (test code = 4958) 36 NG/ML Delfino Schumacher [place] [id number] 00:00:00* Test Item Value Reference Range Interpretation Comme nts URIC ACID (test code = 2233) 7.5 MG/DL Delfino Schumacher [place] D, 25 [id number] 00:00:00* Test Item Value Reference Range Interpretation Comme nts VITAMIN D, 25 OH (test code = 4958) 36 NG/ML Delfino Schumacher [place] [id number] 00:00:00* Test Item Value Reference Range Interpretation Comme nts URIC ACID (test code = 2233) 7.5 MG/DL Delfino Schumacher [place] D, 25 [id number] 00:00:00* Test Item Value Reference Range Interpretation Comme nts VITAMIN D, 25 OH (test code = 4958) 36 NG/ML Delfino Schumacher [place] [id number] 00:00:00* Test Item Value Reference Range Interpretation Comme nts URIC ACID (test code = 2233) 7.5 MG/DL URIC [id number] 00:00:00* Test Item Value Reference Range Interpretation Comme nts URIC ACID (test code = 2233) 7.5 MG/DL Delfino Schumacher [place] [id number] 00:00:00* Test Item Value Reference Range Interpretation Comme nts URIC ACID (test code = 2233) 7.5 MG/DL Delfino Schumacher [place] D, 25 [id number] 00:00:00* Test Item Value Reference Range Interpretation Comme nts VITAMIN D, 25 OH (test code = 4958) 36 NG/ML URIC [id number] 00:00:00* Test Item Value Reference Range Interpretation Comme nts URIC ACID (test code = 2233) 7.5 MG/DL VITAMIN D, 25 [id number] 00:00:00* Test Item Value Reference Range Interpretation Comme nts VITAMIN D, 25 OH (test code = 4958) 36 NG/ML URIC [id number] 00:00:00* Test Item Value Reference Range Interpretation Comme nts URIC ACID (test code = 2233) 7.5 MG/DL VITAMIN D, 25 [id number] 00:00:00* Test Item Value Reference Range Interpretation Comme nts VITAMIN D, 25 OH (test code = 4958) 36 NG/ML URIC [id number] 00:00:00* Test Item Value Reference Range Interpretation Comme nts URIC ACID (test code = 2233) 7.5 MG/DL VITAMIN D, 25 [id number] 00:00:00* Test Item Value Reference Range Interpretation Comme nts VITAMIN D, 25 OH (test code = 4958) 36 NG/ML VITAMIN D, 25 [id number] 00:00:00* Test Item Value Reference Range Interpretation Comme nts VITAMIN D, 25 OH (test code = 4958) 36 NG/ML Delfino Schumacher [place] [id number] 00:00:00* Test Item Value Reference Range Interpretation Comme nts URIC ACID (test code = 2233) 7.5 MG/DL Delfino Schumacher [place] D, 25 [id number] 00:00:00* Test Item Value Reference Range Interpretation Comme nts VITAMIN D, 25 OH (test code = 4958) 36 NG/ML Delfino Schumacher [place] [id number] 00:00:00* Test Item Value Reference Range Interpretation Comme nts URIC ACID (test code = 2233) 7.5 MG/DL Delfino Schumacher [place] D, 25 [id number] 00:00:00* Test Item Value Reference Range Interpretation Comme nts VITAMIN D, 25 OH (test code = 4958) 36 NG/ML Delfino Schumacher [place] D, 25 [id number] 00:00:00* Test Item Value Reference Range Interpretation Comme nts VITAMIN D, 25 OH (test code = 4958) 36 NG/ML Deflino Schumacher [place] [id number] 00:00:00* Test Item Value Reference Range Interpretation Comme nts URIC ACID (test code = 2233) 7.5 MG/DL Delfino F AustinVITAMIN D, 25 [id number] 00:00:00* Test Item Value Reference Range Interpretation Comme nts VITAMIN D, 25 OH (test code = 4958) 36 NG/ML Delfino F [place] [id number] 00:00:00* Test Item Value Reference Range Interpretation Comme nts URIC ACID (test code = 2233) 7.5 MG/DL Delfino F AustinVITAMIN D, 25 [id number] 00:00:00* Test Item Value Reference Range Interpretation Comme nts VITAMIN D, 25 OH (test code = 4958) 36 NG/ML Delfino Schumacher AustinSEDIMENTATION [id number] 00:00:00* Test Item Value Reference Range Interpretation Comme nts SEDIMENTATION RATE (test cod e = 1017) 117 MM/HOUR Delfino Schumacher AustinC-REACTIVE [id number] 00:00:00* Test Item Value Reference Range Interpretation Comme nts C-REACTIVE PROTEIN (test cod e = 3513) 0.3 MG/DL Delfino Schumacher Austin[place]HEUM[place] FACTOR, [id number] 00:00:00* Test Item Value Reference Range Interpretation Comme nts RHEUMATOID FACTOR, QUANT (te st code = 3502) <10 IU/ML Delfino Schumacher AustinSEDIMENTATION [id number] 00:00:00* Test Item Value Reference Range Interpretation Comme nts SEDIMENTATION RATE (test cod e = 1017) 117 MM/HOUR Delfino Schumacher AustinC-REACTIVE [id number] 00:00:00* Test Item Value Reference Range Interpretation Comme nts C-REACTIVE PROTEIN (test cod e = 3513) 0.3 MG/DL Delfino Schumacher AustinRHEUMATOID FACTOR, [id number] 00:00:00* Test Item Value Reference Range Interpretation Comme nts RHEUMATOID FACTOR, QUANT (te st code = 3502) <10 IU/ML Delfino Schumacher AustinSEDIMENTATION [id number] 00:00:00* Test Item Value Reference Range Interpretation Comme nts SEDIMENTATION RATE (test cod e = 1017) 117 MM/HOUR Delfino F AustinC-REACTIVE [id number] 00:00:00* Test Item Value Reference Range Interpretation Comme nts C-REACTIVE PROTEIN (test cod e = 3513) 0.3 MG/DL Delfino F AustinRHEUMATOID FACTOR, [id number] 00:00:00* Test Item Value Reference Range Interpretation Comme nts RHEUMATOID FACTOR, QUANT (te st code = 3502) <10 IU/ML Delfino F AustinSEDIMENTATION [id number] 00:00:00* Test Item Value Reference Range Interpretation Comme nts SEDIMENTATION RATE (test cod e = 1017) 117 MM/HOUR Delfino F AustinC-REACTIVE [id number] 00:00:00* Test Item Value Reference Range Interpretation Comme nts C-REACTIVE PROTEIN (test cod e = 3513) 0.3 MG/DL Delfino F AustinRHEUMATOID FACTOR, [id number] 00:00:00* Test Item Value Reference Range Interpretation Comme nts RHEUMATOID FACTOR, QUANT (te st code = 3502) <10 IU/ML Delfino F AustinSEDIMENTATION [id number] 00:00:00* Test Item Value Reference Range Interpretation Comme nts SEDIMENTATION RATE (test cod e = 1017) 117 MM/HOUR Delfino F AustinC-REACTIVE [id number] 00:00:00* Test Item Value Reference Range Interpretation Comme nts C-REACTIVE PROTEIN (test cod e = 3513) 0.3 MG/DL Delfino F AustinRHEUMATOID FACTOR, [id number] 00:00:00* Test Item Value Reference Range Interpretation Comme nts RHEUMATOID FACTOR, QUANT (te st code = 3502) <10 IU/ML Delfino F AustinSEDIMENTATION [id number] 00:00:00* Test Item Value Reference Range Interpretation Comme nts SEDIMENTATION RATE (test cod e = 1017) 117 MM/HOUR Delfino F AustinC-REACTIVE [id number] 00:00:00* Test Item Value Reference Range Interpretation Comme nts C-REACTIVE PROTEIN (test cod e = 3513) 0.3 MG/DL Delfino F AustinRHEUMATOID FACTOR, [id number] 00:00:00* Test Item Value Reference Range Interpretation Comme nts RHEUMATOID FACTOR, QUANT (te st code = 3502) <10 IU/ML Delfino F AustinSEDIMENTATION [id number] 00:00:00* Test Item Value Reference Range Interpretation Comme nts SEDIMENTATION RATE (test cod e = 1017) 117 MM/HOUR Delfino F AustinC-REACTIVE [id number] 00:00:00* Test Item Value Reference Range Interpretation Comme nts C-REACTIVE PROTEIN (test cod e = 3513) 0.3 MG/DL Delfino F AustinRHEUMATOID FACTOR, [id number] 00:00:00* Test Item Value Reference Range Interpretation Comme nts RHEUMATOID FACTOR, QUANT (te st code = 3502) <10 IU/ML Delfino F AustinSEDIMENTATION [id number] 00:00:00* Test Item Value Reference Range Interpretation Comme nts SEDIMENTATION RATE (test cod e = 1017) 117 MM/HOUR Delfino F AustinC-REACTIVE [id number] 00:00:00* Test Item Value Reference Range Interpretation Comme nts C-REACTIVE PROTEIN (test cod e = 3513) 0.3 MG/DL Delfino F AustinRHEUMATOID FACTOR, [id number] 00:00:00* Test Item Value Reference Range Interpretation Comme nts RHEUMATOID FACTOR, QUANT (te st code = 3502) <10 IU/ML Delfino F AustinSEDIMENTATION [id number] 00:00:00* Test Item Value Reference Range Interpretation Comme nts SEDIMENTATION RATE (test cod e = 1017) 117 MM/HOUR Delfino F AustinC-REACTIVE [id number] 00:00:00* Test Item Value Reference Range Interpretation Comme nts C-REACTIVE PROTEIN (test cod e = 3513) 0.3 MG/DL Delfino F AustinRHEUMATOID FACTOR, [id number] 00:00:00* Test Item Value Reference Range Interpretation Comme nts RHEUMATOID FACTOR, QUANT (te st code = 3502) <10 IU/ML Delfino F AustinSEDIMENTATION [id number] 00:00:00* Test Item Value Reference Range Interpretation Comme nts SEDIMENTATION RATE (test cod e = 1017) 117 MM/HOUR Delfino F AustinC-REACTIVE [id number] 00:00:00* Test Item Value Reference Range Interpretation Comme nts C-REACTIVE PROTEIN (test cod e = 3513) 0.3 MG/DL Delfino F AustinRHEUMATOID FACTOR, [id number] 00:00:00* Test Item Value Reference Range Interpretation Comme nts RHEUMATOID FACTOR, QUANT (te st code = 3502) <10 IU/ML Delfino F AustinSEDIMENTATION [id number] 00:00:00* Test Item Value Reference Range Interpretation Comme nts SEDIMENTATION RATE (test cod e = 1017) 117 MM/HOUR Delfino F AustinC-REACTIVE [id number] 00:00:00* Test Item Value Reference Range Interpretation Comme nts C-REACTIVE PROTEIN (test cod e = 3513) 0.3 MG/DL Delfino Schumacher AustinRHEUMATOID FACTOR, [id number] 00:00:00* Test Item Value Reference Range Interpretation Comme nts RHEUMATOID FACTOR, QUANT (te st code = 3502) <10 IU/ML Delfino Schumacher AustinSEDIMENTATION [id number] 00:00:00* Test Item Value Reference Range Interpretation Comme nts SEDIMENTATION RATE (test cod e = 1017) 117 MM/HOUR Delfino Schumacher AustinC-REACTIVE [id number] 00:00:00* Test Item Value Reference Range Interpretation Comme nts C-REACTIVE PROTEIN (test cod e = 3513) 0.3 MG/DL C-REACTIVE [id number] 00:00:00* Test Item Value Reference Range Interpretation Comme nts C-REACTIVE PROTEIN (test cod e = 3513) 0.3 MG/DL Delfino Schumacher AustinRHEUMATOID FACTOR, [id number] 00:00:00* Test Item Value Reference Range Interpretation Comme nts RHEUMATOID FACTOR, QUANT (te st code = 3502) <10 IU/ML SEDIMENTATION [id number] 00:00:00* Test Item Value Reference Range Interpretation Comme nts SEDIMENTATION RATE (test cod e = 1017) 117 MM/HOUR C-REACTIVE [id number] 00:00:00* Test Item Value Reference Range Interpretation Comme nts C-REACTIVE PROTEIN (test cod e = 3513) 0.3 MG/DL RHEUMATOID FACTOR, [id number] 00:00:00* Test Item Value Reference Range Interpretation Comme nts RHEUMATOID FACTOR, QUANT (te st code = 3502) <10 IU/ML SEDIMENTATION [id number] 00:00:00* Test Item Value Reference Range Interpretation Comme nts SEDIMENTATION RATE (test cod e = 1017) 117 MM/HOUR C-REACTIVE [id number] 00:00:00* Test Item Value Reference Range Interpretation Comme nts C-REACTIVE PROTEIN (test cod e = 3513) 0.3 MG/DL RHEUMATOID FACTOR, [id number] 00:00:00* Test Item Value Reference Range Interpretation Comme nts RHEUMATOID FACTOR, QUANT (te st code = 3502) <10 IU/ML SEDIMENTATION [id number] 00:00:00* Test Item Value Reference Range Interpretation Comme nts SEDIMENTATION RATE (test cod e = 1017) 117 MM/HOUR C-REACTIVE [id number] 00:00:00* Test Item Value Reference Range Interpretation Comme nts C-REACTIVE PROTEIN (test cod e = 3513) 0.3 MG/DL RHEUMATOID FACTOR, [id number] 00:00:00* Test Item Value Reference Range Interpretation Comme nts RHEUMATOID FACTOR, QUANT (te st code = 3502) <10 IU/ML SEDIMENTATION [id number] 00:00:00* Test Item Value Reference Range Interpretation Comme nts SEDIMENTATION RATE (test cod e = 1017) 117 MM/HOUR RHEUMATOID FACTOR, [id number] 00:00:00* Test Item Value Reference Range Interpretation Comme nts RHEUMATOID FACTOR, QUANT (te st code = 3502) <10 IU/ML Delfino F AustinSEDIMENTATION [id number] 00:00:00* Test Item Value Reference Range Interpretation Comme nts SEDIMENTATION RATE (test cod e = 1017) 117 MM/HOUR Delfino F AustinC-REACTIVE [id number] 00:00:00* Test Item Value Reference Range Interpretation Comme nts C-REACTIVE PROTEIN (test cod e = 3513) 0.3 MG/DL Delfino F AustinRHEUMATOID FACTOR, [id number] 00:00:00* Test Item Value Reference Range Interpretation Comme nts RHEUMATOID FACTOR, QUANT (te st code = 3502) <10 IU/ML Delfino F AustinSEDIMENTATION [id number] 00:00:00* Test Item Value Reference Range Interpretation Comme nts SEDIMENTATION RATE (test cod e = 1017) 117 MM/HOUR Delfino F AustinC-REACTIVE [id number] 00:00:00* Test Item Value Reference Range Interpretation Comme nts C-REACTIVE PROTEIN (test cod e = 3513) 0.3 MG/DL Delfino F AustinC-REACTIVE [id number] 00:00:00* Test Item Value Reference Range Interpretation Comme nts C-REACTIVE PROTEIN (test cod e = 3513) 0.3 MG/DL Delfino F AustinRHEUMATOID FACTOR, [id number] 00:00:00* Test Item Value Reference Range Interpretation Comme nts RHEUMATOID FACTOR, QUANT (te st code = 3502) <10 IU/ML Delfino F AustinSEDIMENTATION [id number] 00:00:00* Test Item Value Reference Range Interpretation Comme nts SEDIMENTATION RATE (test cod e = 1017) 117 MM/HOUR Delfino F AustinRHEUMATOID FACTOR, [id number] 00:00:00* Test Item Value Reference Range Interpretation Comme nts RHEUMATOID FACTOR, QUANT (te st code = 3502) <10 IU/ML Delfino F AustinC-REACTIVE [id number] 00:00:00* Test Item Value Reference Range Interpretation Comme nts C-REACTIVE PROTEIN (test cod e = 3513) 0.3 MG/DL Delfino F AustinRHEUMATOID FACTOR, [id number] 00:00:00* Test Item Value Reference Range Interpretation Comme nts RHEUMATOID FACTOR, QUANT (te st code = 3502) <10 IU/ML Delfino F AustinSEDIMENTATION [id number] 00:00:00* Test Item Value Reference Range Interpretation Comme nts SEDIMENTATION RATE (test cod e = 1017) 117 MM/HOUR Delfino F AustinC-REACTIVE [id number] 00:00:00* Test Item Value Reference Range Interpretation Comme nts C-REACTIVE PROTEIN (test cod e = 3513) 0.3 MG/DL Delfino F AustinSEDIMENTATION [id number] 00:00:00* Test Item Value Reference Range Interpretation Comme nts SEDIMENTATION RATE (test cod e = 1017) 117 MM/HOUR Delfino F AustinRHEUMATOID FACTOR, [id number] 00:00:00* Test Item Value Reference Range Interpretation Comme nts RHEUMATOID FACTOR, QUANT (te st code = 3502) <10 IU/ML Delfino Schumacher You Consult Notes Date/Time Note Provider Source 2023-05-19 10:11:14 Associated Order(s): CONSULT CARDIOLOGY [facility] Cardiology Consult PCP: Jt Saleh Endy [facility] Date of Service: 05/19/2023 CHIEF COMPLAINT/reason for consult: Troponin elevation HISTORY OF PRESENT ILLNESS This is a 58 years old female with past medical history of HIV, hypertension, hyperlipidemia, possible CAD etc. She came to [facility] due to cough and dyspnea. She was found to have COPD exacerbation. Labs showed troponin elevation and TAIWO. Denies chest pain. No acute EKG changes. Echocardiogram showed hyperdynamic left ventricle with ejection fraction over 65%. Moderate aortic stenosis noted. PAST MEDICAL HISTORY Past Medical History: Diagnosis Date Coronary atherosclerosis of unspecified type of vessel, poarch or graft 02/11/2013 heart attack Genital warts [...] or Shortness of Breath. 8.5 g 0 hvlaphlxf-kndygvwu-ijwkpcq ala 50-200-25 mg tablet Take 1 tablet [...] injury) Aortic stenosis Coronary artery disease involving poarch coronary artery of poarch heart without angina pectoris COPD exacerbation-continue antibiotics, [...] statins. Continue metoprolol. 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 Possible CAD-she denies coronary intervention. Recommend to [...] further assistance. James Stacy MD, FACC, AUSTYN Laboratory Monitor Division of Cardiovascular Medicine [facility] T [facility] - Health History and Physical Notes [...] or Shortness of Breath. 8.5 g 0 wnlejnydo-szruoodu-nsjqahh ala 50-200-25 mg tablet Take 1 tablet [...] Coronary atherosclerosis of unspecified type of vessel, poarch or graft 02/11/2013 heart attack Genital warts [...] DAILY, Lefty Abreu MD, 10 mg at 05/16/232217 azithromycin (ZITHROMAX) 500 mg in NaCl 0.9% (NS) 250 mL VIAL-MATE IV piggyback, 500 mg, IV Piggyback, Q24H ABX, Kvng Roberson DO, Stopped at 05/16/231658 cetirizine (ZYRTEC) tablet 10 mg, 10 mg, Oral, QHS, Lefty Abreu MD, 10 mg at 05/16/232217 [START ON 05/17/2023] efavirenz (SUSTIVA) tablet 600 [...] injection 5 mL, 5 mL, Intravenous, PRN, EzraAnyi, PERIPHERAL EQUIPMENT OPERATOR [START ON 05/17/2023] sulfamethoxazole-trimethoprim (BACTRIM DS) 800-160 mg per tablet 1 tablet, 1 tablet, Oral, QMON/SAT/SAT AT 1999, Lefty Abreu MD Objective: Vitals: Vitals: 05/16/23 1612 05/16/23 16205/16/23191405/16/232029 BP: 117/69 Pulse: 98 99 Resp: 16 18 25 Temp: 37.2 ?C (99 [...] Admit to inpatient IM-INTERNAL MEDICINE STAFF [facility]
--- NOTE | 2024-03-20 15:01 | RAD REPORT ---
Procedure: Chest Single View HISTORY: Cough COMPARISON: February 2024 FINDINGS: Moderate bilateral interstitial lung opacities appear chronic. The lungs appear clear of acute infiltrate. No significant pleural effusion noted. The heart is borderline enlarged. IMPRESSION: No acute abnormality is displayed.
[2024-03-20 15:22] LABS: SARS-CoV-2 Antigen CONTROL BLUE LINE VIS/BG OK; SARS-CoV-2 Antigen Rapid Res Negative (Negative)
[2024-03-20 15:42] LABS: Absolute Lymphocytes (CBC) 0.7 K/uL (0.7-4.9); Absolute Monocytes 0.2 K/uL (0.1-1.3); Absolute Neutrophil 1.9 K/uL (1.8-8.0); Basophils % 1.3 % (0-1.3); Eosinophils % 1.6 % (0-4.4); Hematocrit 39.5 % (36.0-45.0); Hemoglobin 13.5 g/dL (12.0-15.0); Lymphocytes % 22.8 % (15.3-44.8); MCH 35.4 pg (27.0-35.0); MCHC 34.1 g/dL (32.0-36.0); MCV 103.8 fL (80-100); MPV 9.2 fL (7.6-11.3); Monocytes % 8.3 % (3.3-12.3); Nucleated Red Blood Cells % 0.1 % (0-0); Platelets 203 thou/uL (152-406); RBC Red Blood Cell Count 3.81 M/uL (3.86-4.86); Red Cell Distribution Width 14.3 % (12.1-15.2)
[2024-03-20 15:53] LABS: Albumin 3.8 g/dL (3.4-5.0); Albumin/Globulin Ratio 0.7 (1.1-1.8); Anion Gap 9.2 mEq/L (5.0-15.0); Bilirubin Direct 0.2 mg/dL (0-0.2); Bilirubin Indirect, Calculated 0.3 mg/dL (0.2-0.8); Bilirubin Total 0.5 mg/dL (0.2-1.0); Globulin 5.3 g/dL (2.3-3.5); Magnesium 1.9 mg/dL (1.6-2.4); Potassium 3.2 mEq/L (3.5-5.1); Protein, Total 9.1 g/dL (6.4-8.2)
[2024-03-20 15:56] LABS: Troponin High Sensitivity 202.2 pg/mL (<58.9)
[2024-03-20] MEDS ORDERED: MORPHINE 2 MG/ML SYR ONE (16:05)
[2024-03-20] MEDS ORDERED: POTASSIUM 25 MEQ EFFERV TAB ONE (16:05)
[2024-03-20] MEDS ORDERED: ASPIRIN 81 MG CHEWABLE TABLET ONE (16:05)
[2024-03-20 16:33] LABS: PT Prothrombin Time 11.8 SECONDS (9.4-12.5); Protime INR 1.13
--- NOTE | 2024-03-20 16:42 | EDPHYS ---
Physician Documentation [facility] Name: Charito Michael Age: 59 yrs Sex: Female : 1965 Arrival Date: 03/20/2024 Time: 14:07 Bed 14 Private MD: ED Physician Chi Sanchez HPI: 03/20 14:20 This 59 yrs old Black Female presents to ER via EMS with complaints of Shortness Of cp Breath. 14:20 The patient has shortness of breath at rest. cp 14:20 Onset: The symptoms/episode began/occurred today. cp 14:20 Associated signs and symptoms: Pertinent positives: chest pain, back pain, Pertinent cp negatives: productive cough, diaphoresis, fever, vomiting. Severity of symptoms: in the emergency department the symptoms are unchanged despite EMS interventions. Historical: - Allergies: 14:15 NKA; kc6 - PMHx: 14:15 Back pain; CHF; Chronic pain; COPD; HIV; Hypercholesterolemia; Hypertension; seasonal kc6 allergies; - PSHx: 14:15 Total abdominal hysterectomy; kc6 - Immunization history:: Adult Immunizations up to date. - Infectious Disease History:: Denies. - Social history:: Smoking status: Patient denies any tobacco usage or history of. ROS: 14:25 Constitutional: Negative for body aches, chills, fever, poor PO intake, cp 14:25 Eyes: Negative for injury, pain, redness, and discharge, cp 14:25 ENT: Negative for drainage from ear(s), ear pain, sore throat, difficulty swallowing, difficulty handling secretions, 14:25 Cardiovascular: Positive for chest pain, Negative for edema, palpitations, 14:25 Respiratory: Positive for shortness of breath, at rest. 14:25 Abdomen/GI: Negative for abdominal pain, vomiting, diarrhea, constipation, 14:25 Back: Positive for pain at rest, pain with movement, 14:25 Neuro: Negative for altered mental status, 14:25 All other systems are negative, Exam: 14:30 Constitutional: The patient appears in no acute distress, alert, awake, cp non-diaphoretic, non-toxic, well developed, well nourished, uncomfortable, 14:30 Head/Face: Normocephalic, atraumatic. cp 14:30 Eyes: Periorbital structures: appear normal, Conjunctiva: normal, no exudate, no injection, Sclera: no appreciated abnormality, Lids and lashes: appear normal, bilaterally, 14:30 ENT: External ear(s): are unremarkable, Nose: is normal, Mouth: Lips: moist, Oral mucosa: pink and intact, moist, Posterior pharynx: Airway: no evidence of obstruction, patent, 14:30 Neck: ROM/movement: is normal, is supple, without pain, no range of motions limitations, 14:30 Chest/axilla: Inspection: normal, 14:30 Cardiovascular: Rate: normal, Rhythm: regular, Edema: is not appreciated, JVD: is not appreciated, 14:30 Respiratory: the patient does not display signs of respiratory distress, Respirations: normal, no use of accessory muscles, no retractions, labored breathing, is not present, Breath sounds: are clear throughout, no decreased breath sounds, no stridor, no wheezing, 14:30 Abdomen/GI: Inspection: abdomen appears normal, Palpation: abdomen is soft and non-tender, in all quadrants, 14:30 Back: CVA tenderness, is absent, vertebral tenderness, is not appreciated, 14:30 Neuro: Orientation: to person, place, situation, Mentation: able to follow commands, Motor: moves all fours, no focal deficits, 14:42 ECG was reviewed by the Attending Physician. Vital Signs: 14:12 BP 150 / 83; Pulse 79; Resp 16 S; Pulse Ox 100% on 4 lpm NC; Weight 54.43 kg; Height 5 kc6 ft. 3 in. (R); 15:54 BP 149 / 81; Pulse 75; Resp 13; Pulse Ox 100% on 4 lpm NC; ap3 17:30 BP 138 / 77; Pulse 78; Resp 17 S; Pulse Ox 98% on R/A; Pain 3/10; kc6 14:12 Body Mass Index 21.26 (54.43 kg, 160.02 cm) kc6 17:30 Pain Scale: Adult kc6 MDM: 14:12 Medical Screening Exam initiated cp 16:45 Data reviewed: vital signs, nurses notes, lab test result(s), EKG, radiologic studies, cp plain films, and as a result, I will admit patient. 16:45 Consideration of Admission/Observation Patient was admitted/placed on observation. cp Management of patient was discussed with the following: Hospitalist: who will admit after discussion to service of DR Beck. Independent interpretation of the following test(s) in the Emergency Department EKG: See my EKG interpretation above. Care significantly affected by the following chronic conditions: Hypertension, Congestive Heart Failure, Chronic Obstructive Pulmonary Disease. Counseling: I had a detailed discussion with the patient and/or guardian regarding the historical points, exam findings, and any diagnostic results supporting the discharge/admit diagnosis, lab results, radiology results, the need for further work-up and treatment in the hospital. Response to treatment: the patient's symptoms have mildly improved after treatment. 03/20 14:16 Order name: Influenza Screen (a \T\ B); Complete Time: 15:57 cp 03/20 14:16 Order name: RSV; Complete Time: 15:57 cp 03/20 14:16 Order name: SARS RAPID; Complete Time: 15:57 cp 03/20 14:16 Order name: Basic Metabolic Panel; Complete Time: 15:57 cp 03/20 15:57 Interpretation: Normal except: K 3.2; CL 110; GLUC 113; BUN 22; CRE 1.32; GFR 46. cp 03/20 14:16 Order name: CBC with Diff; Complete Time: 15:57 cp 03/20 15:57 Interpretation: Normal except: WBC 2.90; RBC 3.81; MCV 103.8; MCH 35.4. cp 03/20 14:16 Order name: LFT's; Complete Time: 15:57 cp 03/20 15:58 Interpretation: Normal except: TP 9.1; GLOB 5.3; A/G 0.7. cp 03/20 14:16 Order name: Magnesium; Complete Time: 15:57 cp 03/20 14:16 Order name: NT PRO-BNP; Complete Time: 15:57 cp 03/20 14:16 Order name: PT-INR; Complete Time: 17:14 cp 03/20 14:16 Order name: Troponin HS; Complete Time: 15:57 cp 03/20 15:58 Interpretation: Abnormal: Troponin HS 202.2. cp 03/20 16:26 Order name: Ptt, Activated; Complete Time: 17:14 cp 03/20 17:43 Order name: Urinalysis w/ reflexes EDMS 03/20 17:43 Order name: Basic Metabolic Panel EDMS 03/20 17:43 Order name: Basic Metabolic Panel EDMS 03/20 17:43 Order name: Basic Metabolic Panel EDMS 03/20 17:43 Order name: CBC with Automated Diff EDMS 03/20 17:43 Order name: CBC with Automated Diff EDMS 03/20 17:43 Order name: CBC with Automated Diff EDMS 03/20 17:43 Order name: Magnesium EDMS 03/20 17:43 Order name: Magnesium EDMS 03/20 17:43 Order name: Magnesium EDMS 03/20 17:43 Order name: Phosphorus EDMS 03/20 17:43 Order name: Phosphorus EDMS 03/20 17:43 Order name: Phosphorus EDMS 03/20 17:43 Order name: Troponin High Sensitivity EDMS 03/20 17:43 Order name: Troponin High Sensitivity EDMS 03/20 17:43 Order name: Troponin High Sensitivity EDMS 03/20 14:16 Order name: XRAY Chest (1 view); Complete Time: 15:57 cp 03/20 17:43 Order name: Physical Therapy Consult EDMS 03/20 14:16 Order name: Cardiac monitoring; Complete Time: 14:58 cp 03/20 14:16 Order name: EKG - Nurse/Tech; Complete Time: 14:58 cp 03/20 14:16 Order name: IV Saline Lock; Complete Time: 15:33 cp 03/20 14:16 Order name: Labs collected and sent; Complete Time: 15:33 cp 03/20 14:16 Order name: O2 Per Protocol; Complete Time: 14:17 cp 03/20 14:16 Order name: O2 Sat Monitoring; Complete Time: 14:17 cp 03/20 15:46 Order name: Labs - recollect needed: recollect blue top/ tube short; Complete Time: eb 16:17 EC:42 Rate is 77 beats/min. Rhythm is regular. [place] interval is normal. QRS interval is normal. cp QT interval is normal. Interpreted by me. Reviewed by me. Administered Medications: 15:33 Drug: DuoNeb Nebulize (2.5 mg - 0.5 mg) 3 ml Nebulizer once Route: Nebulizer; kc6 15:33 Drug: MethylPrednisoLONE IVP 125 mg IVP once Route: IVP; Site: left antecubital; kc6 16:17 Drug: Potassium PO Effervescent Tablet 50 mEq PO once; dissolve in 4 ounces of water or ap3 juice Route: PO; 16:46 Follow up: Response: No adverse reaction kc6 16:17 Drug: Aspirin PO Chewable Tablet 324 mg PO once; 81 mg tablets x 4 Route: PO; ap3 16:46 Follow up: Response: No adverse reaction kc6 16:17 Drug: morphine IVP or IV 2 mg IVP once over 4 mins Route: IVP; Infused Over: 4 mins; ap3 Site: left antecubital; 16:46 Follow up: Response: No adverse reaction; Pain is decreased kc6 17:07 Drug: Enoxaparin Sub-Q 1 mg/kg Sub-Q once Route: Sub-Q; Site: left upper arm; kc6 17:30 Follow up: Response: No adverse reaction kc6 Disposition Summary: 03/20/24 16:41 Hospitalization Ordered Notes: Hospitalization Status: Inpatient Admission cp Provider: Manuel Beck cp Location: Telemetry/MedSurg (Inpatient) cp Condition: Stable cp Problem: new cp Symptoms: have improved cp Bed/Room Type: Standard cp Room Assignment: 216(03/20/24 18:59) sp Diagnosis - Dyspnea, unspecified cp Forms: - Medication Reconciliation Form cp - SBAR form cp - Leadership Thank You Letter cp Addendum: 03/21/2024 22:08 Co-signature as Attending Physician, Chi Sanchez MD I agree with the assessment and c yadav plan of care. Signatures: Dispatcher [employer] Chi La MD MD cha Pinkerton, Shawna sp Page, Corey, PA PA cp Leal, Jahala RN RN jl7 Chichi Garduno RN RN ap3 Linda Moses Kaitlyn, RN RN kc6 Corrections: (The following items were deleted from the chart) 03/20 14:17 14:17 Influenza Screen (A \T\ B)+BA.LAB.BRZ ordered. EDMS EDMS 14:17 14:17 Respiratory Syncytial Virus Ag+BA.LAB.BRZ ordered. EDMS EDMS 14:17 14:17 SARS-COV-2 Antigen Rapid+I.LAB.BRZ ordered. EDMS EDMS 14:17 14:17 BASIC METABOLIC PANEL+C.LAB.BRZ ordered. EDMS EDMS 14:17 14:17 CBC+H.LAB.BRZ ordered. EDMS EDMS 14:17 14:17 HEPATIC FUNCTION+C.LAB.BRZ ordered. EDMS EDMS 14:17 14:17 MAGNESIUM+C.LAB.BRZ ordered. EDMS EDMS 14:17 14:17 PROBNP+C.LAB.BRZ ordered. EDMS EDMS 14:17 14:17 PROTIME (+INR)+COAG.LAB.BRZ ordered. EDMS EDMS 14:17 14:17 Troponin High Sensitivity+C.LAB.BRZ ordered. EDMS EDMS 14:17 14:17 Chest Single View+RAD.RAD.BRZ ordered. EDMS EDMS 18:08 16:41 cp eb 18:52 18:08 402 eb jl7 18:59 18:52 jl7 sp
--- NOTE | 2024-03-20 16:42 | ER ---
Nurse's Notes [facility] Name: Charito Michael Age: 59 yrs Sex: Female : 1965 Arrival Date: 03/20/2024 Time: 14:07 Bed 14 Private MD: Diagnosis: Dyspnea, unspecified Presentation: 03/20 14:12 Chief complaint: EMS states: they were toned put for SOB and back pain. state they kc6 found her to be 92% with her home O2 not all the way on. pt states the back pain is from a fall she had a while back but it has resolved. pt states the SOB started today. Coronavirus screen: At this time, the client does not indicate any symptoms associated with coronavirus-19. Ebola Screen: No symptoms or risks identified at this time. Initial Sepsis Screen: Does the patient meet any 2 criteria? No. Patient's initial sepsis screen is negative. Does the patient have a suspected source of infection? No. Patient's initial sepsis screen is negative. Risk Assessment: Do you want to hurt yourself or someone else? Patient reports no desire to harm self or others. Onset of symptoms was March 20, 2024. 14:12 Method Of Arrival: EMS: [facility] kc6 14:12 Acuity: GIULIANO 3 kc6 Historical: - Allergies: 14:15 NKA; kc6 - PMHx: 14:15 Back pain; CHF; Chronic pain; COPD; HIV; Hypercholesterolemia; Hypertension; seasonal kc6 allergies; - PSHx: 14:15 Total abdominal hysterectomy; kc6 - Immunization history:: Adult Immunizations up to date. - Infectious Disease History:: Denies. - Social history:: Smoking status: Patient denies any tobacco usage or history of. Screenin:15 [facility] ED Fall Risk Assessment (Adult) History of falling in the last 3 months, kc6 including since admission No falls in past 3 months (0 pts) Confusion or Disorientation No (0 pts) Intoxicated or Sedated No (0 pts) Impaired Gait No (0 pts) Mobility Assist Device Used No (0 pt) Altered Elimination No (0 pt) Score/Fall Risk Level 0 - 2 = Low Risk Oriented to surroundings, Maintained a safe environment, Educated pt \T\ family on fall prevention, incl call for assistance when getting out of bed. Abuse screen: Denies threats or abuse. Denies injuries from another. Nutritional screening: No deficits noted. Tuberculosis screening: No symptoms or risk factors identified. Assessment: 14:12 General: Appears in no apparent distress. comfortable, well groomed, well developed, kc6 Behavior is calm, cooperative, appropriate for age. Pain: Complains of pain in back. Neuro: Level of Consciousness is awake, alert, obeys commands, Oriented to person, place, time, situation, Appropriate for age. Cardiovascular: Denies chest pain, Capillary refill < 3 seconds Rhythm is regular. Respiratory: Reports shortness of breath at rest on exertion Airway is patent Trachea midline Respiratory effort is even, unlabored, Respiratory pattern is regular, symmetrical. GI: No signs and/or symptoms were reported involving the gastrointestinal system. : No signs and/or symptoms were reported regarding the genitourinary system. EENT: No signs and/or symptoms were reported regarding the EENT system. Derm: No signs and/or symptoms reported regarding the dermatologic system. Skin is intact, is healthy with good turgor, Skin is pink, warm \T\ dry. Musculoskeletal: No signs and/or symptoms reported regarding the musculoskeletal system. Circulation, motion, and sensation intact. Range of motion: intact in all extremities. 15:12 Reassessment: Patient appears in no apparent distress at this time. No changes from kc6 previously documented assessment. Patient and/or family updated on plan of care and expected duration. Pain level reassessed. Patient is alert, oriented x 3, equal unlabored respirations, skin warm/dry/pink. 16:18 Pain: Complains of pain in back Pain currently is 5 out of 10 on a pain scale. Neuro: ap3 Level of Consciousness is awake, alert, obeys commands. Respiratory: Airway is patent. Respiratory: Respiratory effort is even, unlabored, patient on 4 liters nasal canula. 17:30 Reassessment: Patient appears in no apparent distress at this time. No changes from kc6 previously documented assessment. Patient and/or family updated on plan of care and expected duration. Pain level reassessed. Patient is alert, oriented x 3, equal unlabored respirations, skin warm/dry/pink. 18:30 Reassessment: Patient appears in no apparent distress at this time. No changes from kc6 previously documented assessment. Patient and/or family updated on plan of care and expected duration. Pain level reassessed. Patient is alert, oriented x 3, equal unlabored respirations, skin warm/dry/pink. pt placed on a pure wick and put in a brief at this time. Vital Signs: 14:12 BP 150 / 83; Pulse 79; Resp 16 S; Pulse Ox 100% on 4 lpm NC; Weight 54.43 kg; Height 5 kc6 ft. 3 in. (R); 15:54 BP 149 / 81; Pulse 75; Resp 13; Pulse Ox 100% on 4 lpm NC; ap3 17:30 BP 138 / 77; Pulse 78; Resp 17 S; Pulse Ox 98% on R/A; Pain 3/10; kc6 14:12 Body Mass Index 21.26 (54.43 kg, 160.02 cm) 6 17:30 Pain Scale: Adult [facility] ED Course: 14:12 Patient arrived in ED. [facility] 14:12 Chi Holder PA is PHCP. cp 14:12 Chi Sanchez MD is Attending Physician. cp 14:15 Triage completed. [facility] 14:15 Arm band placed on. [facility] 14:15 Patient has correct armband on for positive identification. Bed in low position. Call [facility] light in reach. Side rails up X2. Pulse ox on. NIBP on. Door closed. Noise minimized. Lights dimmed. Warm blanket given. Pillow given. 14:15 Oxygen administration via nasal cannula \T\ 4L/min. [facility] 14:17 Jes Lawton, RN is Primary Nurse. kc6 14:37 XRAY Chest (1 view) In Process Unspecified. EDMS 14:58 Missed attempt(s): 22 gauge in right antecubital area. Missed attempt(s): 24 gauge in kc6 right hand. 16:18 Lab(s) recollected, by me, sent to lab. ap3 16:41 Manuel eBck is Hospitalizing Provider. cp 19:59 Provided Education on: ADMISSION. dd2 19:59 No provider procedures requiring assistance completed. Patient admitted, IV remains in dd2 place. Administered Medications: 15:33 Drug: DuoNeb Nebulize (2.5 mg - 0.5 mg) 3 ml Nebulizer once Route: Nebulizer; [facility] 15:33 Drug: MethylPrednisoLONE IVP 125 mg IVP once Route: IVP; Site: left antecubital; kc6 16:17 Drug: Potassium PO Effervescent Tablet 50 mEq PO once; dissolve in 4 ounces of water or ap3 juice Route: PO; 16:46 Follow up: Response: No adverse reaction kc6 16:17 Drug: Aspirin PO Chewable Tablet 324 mg PO once; 81 mg tablets x 4 Route: PO; ap3 16:46 Follow up: Response: No adverse reaction kc6 16:17 Drug: morphine IVP or IV 2 mg IVP once over 4 mins Route: IVP; Infused Over: 4 mins; ap3 Site: left antecubital; 16:46 Follow up: Response: No adverse reaction; Pain is decreased kc6 17:07 Drug: Enoxaparin Sub-Q 1 mg/kg Sub-Q once Route: Sub-Q; Site: left upper arm; kc6 17:30 Follow up: Response: No adverse reaction kc6 Medication: 19:59 VIS not applicable for this client. dd2 Outcome: 16:41 Decision to Hospitalize by Provider. cp 19:59 Admitted to Med/surg accompanied by tech, via stretcher, with chart, dd2 19:59 Condition: stable 19:59 Discharge instructions given to patient, Instructed on the need for admit, Demonstrated understanding of instructions, 20:00 Patient left the ED. dd2 Signatures: Dispatcher [employer] EDMS Chi Holder PA PA cp Prokisch, Amanda RN RN [id number] Jes Lawton RN RN BUSHRA Saul RN RN dd2
[2024-03-20] MEDS ORDERED: ENOXAPARIN 60 MG/0.6 ML SQ ONE (16:53)
[2024-03-20] MEDS: ENOXAPARIN 60 MG/0.6 ML SQ SCH (17:00)
[2024-03-20] MEDS ORDERED: ACETAMINOPHEN 325 MG TABLET PO PRN (17:36)
--- NOTE | 2024-03-20 20:01 | P.HP ---
Certification for Inpatient Patient admitted to: Observation With expected LOS: <2 Midnights Patient will require the following post-hospital care: None Practitioner: I am a practitioner with admitting privileges, knowledge of patient current condition, hospital course, and medical plan of care. Services: Services provided to patient in accordance with Admission requirements found in Title 42 Section 412.3 of the Code of Federal Regulations Patient History Date of Service: 03/20/24 Reason for admission: SOB 2/2 COPD exacerbation History of Present Illness: Charito Michael is a 58 year old female with PMHX Back pain, CHF, Chronic pain, COPD on 4 LNC, HIV, PCP pneumonia, Hypercholesterolemia, Hypertension, CAD with stent, seasonal allergies who presents to the ED with SOB at rest. She reports her inhaler is not effective and helping her breath easily. Laboratory evaluation significant for potassium 3.2, BUN/creatinine 22/1.32, GFR 46, serum glucose 113, troponin 202.2, BNP 737, WBC 2.9. Chest x-ray reports "Moderate bilateral interstitial lung opacities appear chronic. The lungs appear clear of acute infiltrate. No significant pleural effusion noted. The heart is borderline enlarged. IMPRESSION: No acute abnormality is displayed." Charito will be admitted to hospitalist service for further treatment of elevated troponin, acute hypoxic respiratory distress secondary to COPD exacerbation. Allergies No Known Drug Allergies Allergy (Verified 11/01/15 11:29) Unknown NKA Allergy (Uncoded 03/07/16 13:58) Unknown No Known Allergies Allergy (Uncoded 03/06/16 14:51) Unknown Home Medications: Amitriptyline HCl 1 tab PO BEDTIME 11/02/15 Fluticasone [Flovent Hfa 110*] 2 sprays IH BID 01/11/18 Nystatin 5 ml PO QID 01/11/18 Zolpidem Tartrate 10 mg PO BEDTIME PRN 01/11/18 ALPRAZolam [Xanax*] 1 mg PO TID #90 tab 02/22/24 Amitriptyline HCl 100 mg PO BEDTIME 30 Days #30 tab 02/22/24 Atorvastatin Calcium [Lipitor] 40 mg PO DAILY #30 tablet 02/22/24 Fluticasone Propionate 100 mcg IH BID 30 Days #1 inhaler 02/22/24 Gabapentin 100 mg PO TID #90 02/22/24 Ibuprofen [Ibu] 600 mg PO BID #60 02/22/24 Nystatin 1 ml PO QID 30 Days #120 ml 02/22/24 Vancomycin HCl [Vancocin HCl] 250 mg PO Q6H 7 Days 02/22/24 Zolpidem Tartrate 10 mg PO BEDTIME #30 02/22/24 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 -: safety pin removal from right lung Psychosocial/ Personal History: Pt lives at home alone - Family History Father -: Heart disease Notes: of [place] Sister -: Heart disease Notes: of [place] - Social History Smoking Status: Never smoker Alcohol use: No CD- Drugs: No Caffeine use: Yes Review of Systems Other: per HPI Physical Examination - Physical Exam General: Alert, In no apparent distress, Oriented x3 HEENT: Atraumatic, Normocephalic Neck: Supple, 2+ carotid pulse no bruit Respiratory: Clear to auscultation bilaterally, Normal air movement Cardiovascular: No edema, Normal pulses Capillary refill: <2 Seconds Gastrointestinal: Normal bowel sounds, Soft and benign Musculoskeletal: No clubbing Integumentary: No rashes Neurological: Normal speech, Normal tone - Studies Laboratory Data (last 24 hrs) 03/20/24 03/20/24 03/20/24 16:12 16:12 15:23 WBC 2.90 L Hgb 13.5 Hct 39.5 Plt Count 203 PT 11.8 INR 1.13 APTT 30.2 Sodium Potassium BUN Creatinine Glucose Magnesium Total Bilirubin AST ALT Alkaline Phosphatase 03/20/24 15:23 WBC Hgb Hct Plt Count PT INR APTT Sodium 139 Potassium 3.2 L BUN 22 H Creatinine 1.32 H Glucose 113 H Magnesium 1.9 Total Bilirubin 0.5 AST 25 ALT 22 Alkaline Phosphatase 91 Microbiology Data (last 24 hrs): 03/20/24 14:56 Nasopharnyx Respiratory Syncytial Virus Ag Scrn - Final 03/20/24 14:56 Nasopharnyx Influenza Type A Antigen Screen - Final 03/20/24 14:56 Nasopharnyx Influenza Type B Antigen Screen - Final Assessment and Plan - Plan Assessment and plan Acute hypoxic respiratory distress 2/2 COPD exacerbation History of PCP pneumonia -Chest x-ray reports "Moderate bilateral interstitial lung opacities appear chronic. The lungs appear clear of acute infiltrate. No significant pleural effusion noted. The heart is borderline enlarged. IMPRESSION: No acute abnormality is displayed." -on 4LNC at home -Duonebs -prednisone BID NSTEMI -Troponin >200 -Cardiology consulted -Weight based lovenox -Continuous telemetry -aspirin, lipitor -Heart cath in February resulted clean coronaries Hypokalemia -K 3.2 -Replaced in the ED -monitor in AM labs TAIWO -BUN and creatinine /.32, GFR 46 -Monitor in a.m. labs, Lasix given in the ED COPD on 4 L nasal cannula -Chest x-ray reports "Moderate bilateral interstitial lung opacities appear chronic. The lungs appear clear of acute infiltrate. No significant pleural effusion noted. The heart is borderline enlarged. IMPRESSION: No acute abnormality is displayed." HIV Chronic pain Hypertension Hypercholesterolemia -Continue home medications DVT PPx Lovenox Full code 24-hour OBS Discharge Plan: Home Plan to discharge in: 24 Hours - Advance Directives Does patient have a Living Will: No Does patient have a Durable POA for Healthcare: No
[2024-03-20 20:13] VITALS: O2SAT 98
[2024-03-20] MEDS: ALBUTEROL 2.5 MG/3 ML NEB SOL NEB SCH (21:00)
[2024-03-20] MEDS: IPRATROPIUM BROM 0.5MG/2.5ML NEB SCH (21:00)
[2024-03-20] MEDS: predniSONE 20 MG TAB PO SCH (22:43)
[2024-03-20] MEDS: ATORVASTATIN 40 MG TAB PO SCH (22:43)
[2024-03-20 23:34] VITALS: BMI 21.0
[2024-03-21 05:16] LABS: Absolute Lymphocytes (CBC) 0.4 K/uL (0.7-4.9); Absolute Neutrophil 1.6 K/uL (1.8-8.0); Basophils % 0.3 % (0-1.3); Hematocrit 36.6 % (36.0-45.0); Hemoglobin 12.3 g/dL (12.0-15.0); Lymphocytes % 19.2 % (15.3-44.8); MCH 35.4 pg (27.0-35.0); MCHC 33.7 g/dL (32.0-36.0); MCV 104.9 fL (80-100); MPV 8.5 fL (7.6-11.3); Monocytes % 1.9 % (3.3-12.3); Neutrophils % 78.6 % (41.7-73.7); Nucleated Red Blood Cells % 0.1 % (0-0); Platelets 195 thou/uL (152-406); RBC Red Blood Cell Count 3.49 M/uL (3.86-4.86); Red Cell Distribution Width 14.2 % (12.1-15.2)
[2024-03-21 05:26] LABS: Anion Gap 9.8 mEq/L (5.0-15.0); Magnesium 1.8 mg/dL (1.6-2.4); Phosphorus 2.2 mg/dL (2.5-4.9); Potassium 3.8 mEq/L (3.5-5.1)
[2024-03-21] MEDS: MAGNESIUM SULFATE 1 gm IVPB 1 GM/100 ML BAG IV ONE (06:37)
[2024-03-21] MEDS: POTASS/SODIUM PHOSPHATE 1 PKT POWD.PACK PO SCH (06:38)
[2024-03-21] MEDS: ASPIRIN EC 81 MG TAB PO SCH (08:44)
[2024-03-21] MEDS: POTASSIUM CL SA 10 MEQ TAB PO ONE (08:44)
[2024-03-21 09:00] LABS: Blood Morphology Comment NOT SEEN (NOT SEEN); Platelet Estimate ADEQ; White Blood Cell Scan OK (OK)
--- NOTE | 2024-03-21 14:33 | P.DS ---
Admission Date: 03/20/24 Discharge Date: 03/21/24 Disposition: ROUTINE DISCHARGE Discharge Condition: GOOD Reason for Admission: SOB 2/2 COPD exacerbation Brief History of Present Illness: HPI 03/20/2024 Charito Michael is a 58 year old female with PMHX Back pain, CHF, Chronic pain, COPD on 4 LNC, HIV, PCP pneumonia, Hypercholesterolemia, Hypertension, CAD with stent, seasonal allergies who presents to the ED with SOB at rest. She reports her inhaler is not effective and helping her breath easily. Laboratory evaluation significant for potassium 3.2, BUN/creatinine 22/1.32, GFR 46, serum glucose 113, troponin 202.2, BNP 737, WBC 2.9. Chest x-ray reports "Moderate bilateral interstitial lung opacities appear chronic. The lungs appear clear of acute infiltrate. No significant pleural effusion noted. The heart is borderline enlarged. IMPRESSION: No acute abnormality is displayed." Charito will be admitted to hospitalist service for further treatment of elevated troponin, acute hypoxic respiratory distress secondary to COPD exacerbation. Vital Signs/Physical Exam: Temp Pulse Resp BP Pulse Ox 98.3 F 88 18 153/78 H 93 03/21/24 12:00 03/21/24 12:00 03/21/24 12:00 03/21/24 12:00 03/21/24 12:00 Laboratory Data at Discharge: WBC 2.00 thou/uL (4.3-10.9) L 03/21/24 04:59 Hgb 12.3 g/dL (12.0-15.0) D 03/21/24 04:59 Hct 36.6 % (36.0-45.0) 03/21/24 04:59 Plt Count 195 thou/uL (152-406) 03/21/24 04:59 PT 11.8 SECONDS (9.4-12.5) 03/20/24 16:12 INR 1.13 03/20/24 16:12 APTT 30.2 SECONDS (24.3-36.9) 03/20/24 16:12 Sodium 141 mEq/L (136-145) 03/21/24 04:59 Potassium 3.8 mEq/L (3.5-5.1) D 03/21/24 04:59 BUN 25 mg/dL (7-18) H 03/21/24 04:59 Creatinine 1.39 mg/dL (0.55-1.02) H 03/21/24 04:59 Glucose 111 mg/dL (74-106) H 03/21/24 04:59 Phosphorus 2.2 mg/dL (2.5-4.9) L 03/21/24 04:59 Magnesium 1.8 mg/dL (1.6-2.4) 03/21/24 04:59 Total Bilirubin 0.5 mg/dL (0.2-1.0) 03/20/24 15:23 AST 25 U/L (15-37) 03/20/24 15:23 ALT 22 U/L (13-56) 03/20/24 15:23 Alkaline Phosphatase 91 U/L (45-117) 03/20/24 15:23 Home Medications: Amitriptyline HCl 1 tab PO BEDTIME 11/02/15 Fluticasone [Flovent Hfa 110*] 2 sprays IH BID 01/11/18 Nystatin 5 ml PO QID 01/11/18 Zolpidem Tartrate 10 mg PO BEDTIME PRN 01/11/18 ALPRAZolam [Xanax*] 1 mg PO TID #90 tab 02/22/24 Ibuprofen [Ibu] 600 mg PO BID #60 02/22/24 Nystatin 1 ml PO QID 30 Days #120 ml 02/22/24 Vancomycin HCl [Vancocin HCl] 250 mg PO Q6H 7 Days 02/22/24 Zolpidem Tartrate 10 mg PO BEDTIME #30 02/22/24 Albuterol Neb [Proventil 0.083% Neb Soln] 1.25 mg NEB DAILY 30 Days #30 amp 03/21/24 Amitriptyline HCl 100 mg PO BEDTIME 30 Days #30 tab 03/21/24 Atorvastatin Calcium [Lipitor] 40 mg PO BEDTIME 30 Days #30 tab 03/21/24 Atorvastatin Calcium [Lipitor] 40 mg PO DAILY #30 tablet 03/21/24 Fluticasone Propionate 100 mcg IH BID 30 Days #1 inhaler 03/21/24 Gabapentin 100 mg PO TID #90 03/21/24 Ipratropium Neb [Atrovent*] 0.5 mg NEB DAILY 30 Days #30 amp 03/21/24 Nebulizer Accessories [Adult Aerosol Mask] 1 each MC DAILY 30 Days #1 ea 03/21/24 Nebulizer and Compressor [[place] Nebulizer] 1 each MC DAILY 30 Days #1 ea 03/21/24 predniSONE [Prednisone*] 20 mg PO DAILY #5 tab 03/21/24 New Medications: Nebulizer Accessories [Adult Aerosol Mask] 1 each MC DAILY 30 Days #1 ea Amitriptyline HCl 100 mg PO BEDTIME 30 Days #30 tab Ipratropium Neb [Atrovent*] 0.5 mg NEB DAILY 30 Days #30 amp Nebulizer and Compressor [[place] Nebulizer] 1 each MC DAILY 30 Days #1 ea Fluticasone Propionate 100 mcg IH BID 30 Days #1 inhaler Gabapentin 100 mg PO TID #90 Atorvastatin Calcium [Lipitor] 40 mg PO DAILY #30 tablet Atorvastatin Calcium [Lipitor] 40 mg PO BEDTIME 30 Days #30 tab predniSONE [Prednisone*] 20 mg PO DAILY #5 tab Albuterol Neb [Proventil 0.083% Neb Soln] 1.25 mg NEB DAILY 30 Days #30 amp Physician Discharge Instructions: 1. Please call and schedule a follow-up appointment with your PCP in 3-5 days - Please follow-up with your PCP for medication refills/adjustments 2. Please call and schedule a follow-up appointment with Dr. ambriz in one week 3. Continue heart healthy diet 4. activity restrictions fall precaution 5. Return to the ED if symptoms worsen New medications Nebulizer with facemask Atrovent once daily-for nebulizer Albuterol once daily-for nebulizer Prednisone 20 mg daily x 5 days Diet: AHA Activity: Fall precautions Followup: [facility] [Primary Care Provider] - Joseph Easley MD [ACTIVE - CAN ADMIT] -
[2024-03-21 16:16] VITALS: BP 138/70; TEMP 98.1
== END 2024-03-21 17:06 | disposition home or self-care (01) ==
LOC: ER 14:07 → ERHOLD 17:36 → 2ND 19:38
PROVIDERS: ADMIT Internal Medicine; ATTEND Internal Medicine
DX: J44.1 Chronic obstructive pulmonary disease with (acute) exacerbation (principal); J80 Acute respiratory distress syndrome; N17.9 Acute kidney failure, unspecified; E87.6 Hypokalemia; B20 Human immunodeficiency virus [HIV] disease; I10 Essential (primary) hypertension; E78.00 Pure hypercholesterolemia, unspecified; G89.29 Other chronic pain; Z11.52 Encounter for screening for COVID-19
CPT/HCPCS: 85025 ×2; 80048 ×2; 36415; 83735 ×2; 84100; 85610; 80076; 85730; 84484 ×3; 83880; 87807; 87804 ×2; 71045; 97116; 97161; 94640; 96375; 96372; 96374; 99285; 87811; J7512 ×2; J3475; J1650 ×2; J7613 ×2; J7644 ×2; J2270; J2919; 93005; G0378

== ENCOUNTER 2024-04-16 22:55 | Observation (INO) | payer OTHER ==
--- OUTSIDE RECORDS SUMMARY | 2024-04-16 23:37 | XMS REPORT | Continuity of Care Document ---
Author Name Unknown Address [address] [facility]. 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 Role Phone Delfino [facility] Physician Zaria Orellana Attending Clinician Unavail able Doctor Unassigned, [place] Attending Clinician U Lianet Morin Attending Clinician [phone] Lj Paredes RN Attending Clinician Unavail able KNVG ROBERSON Attending Clinician Unavailable Anyi Hearn NP Attending Clinician [phone] Kvng Roberson DO Attending Clinician GASTON HOBBS Attending Clinician Unavailable Gaston Hobbs MD Attending Clinician Kasandra Cha Attending Clinician LEE HENDERSON Attending Clinician Unavailab CLARITZA Booth Attending Clinician Unavail able Doctor Unassigned, [place] Attending Clinician U iván Almaguer RN, Jeanine Jones Attending Clinician UnaGuerline Hemphill MD Attending Clinician [phone] Guero Pantoja Attending Clinician [phone] GUERO MARTINEZ Attending Clinician Unavailable Jeanie NERI, Osman Loya Attending Clinician Unavaila harvey RODRIGUEZ Attending Clinician Unavailable Dean_Robert Attending Clinician Unavailable APOLINAR WEBER Attending Clinician Unavailable Pgy2 Attending Clinician Unavailable Apolinar Weber MD Attending Clinician + [phone] Enedina Mccarty MD Attending Clinician [phone] BILLY VALERIO Attending Clinician Unavailabl Toby Roe MD Attending Clinician [phone] Delores Garcia MD, Tressa Schwartz Attending Clinician +[phone] Billy Valerio MD Attending Clinician + [phone] Evette Dunn MA Attending Clinician Unavailab KENNEDI Pop Attending Clinician Unavailable Eduarda GLORIA, Kennedi Islas Attending Clinician + [phone] Mikael Quiroz Attending Clinician + [phone] LJ LIANG Attending Clinician Unavailable Lj Mcguire Attending Clinician + [phone] MARGARET NUNEZ Attending Clinician Unavailab Margaret Rodgers DO Attending Clinician [phone] Bonny Morris MD K.H. Attending Clinician + [phone] BONNY MORRIS K.HAg Attending Clinician Unavaila Terri Clemente Attending Clinician [phone] Dawn Mendoza Attending Clinician [phone] Sammi Attending Clinician Unavailable Josse Steele Attending Clinician [phone] JOSSE LOCKHART Attending Clinician UnavailKVNG Kay Admitting Clinician Unavailable Kvng Roberson DO Admitting Clinician [phone] GASTON HOBBS Admitting Clinician Unavailable JENNIFER Admitting Clinician Unavailable Av Admitting Clinician Unavailable Tressa ESTRELLA JR Admitting Clinician Unavailtressa Estrella Jr., MD, Tressa Schwartz Admitting Clinician [phone] KENNEDI BLUE Admitting Clinician Unavailable Sammi Admitting Clinician Unavailable Payers Payer Name Policy Type Policy Number Effective Date Expirati on Date Source [facility] Dual Complete (HMO-POS D-SNP) [id number] [facility] [employer] (MEDICARE REPLACEMENT HMO) [id number] 2020 00:00:00 Problems Condition Name Condition Details Condition Category Status Onset Date Resolution Date Last Treatment Date Treating Clinician Comments Source COPD exacerbati on COPD exacerbati on Disease Active 05-18 00:00: 00 [facility] Troponin I above reference range Troponin I above reference range Disease Active 4 00:00: 00 [facility] Other hyperlipid emia Other hyperlipid emia Disease Active 05-18 00:00: 00 [facility] TAIWO (acute kidney injury) TAIWO (acute kidney injury) Disease Active 4 00:00: 00 [facility] Aortic stenosis Aortic stenosis Disease Active 05-18 00:00: 00 [facility] Coronary artery disease involving afognak coronary artery of afognak heart without angina pectoris Coronary artery disease involving afognak coronary artery of afognak heart without angina pectoris Disease Active 4- 00:00: 00 [facility] Acute cough Acute cough Disease Active 4- 00:00: 00 [facility] Acute cough Acute cough Disease Active 4- 00:00: 00 [facility] 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 Active 5-17 00:00: 00 [facility] Bacteremia Bacteremia Disease Active 4-29 00:00: 00 [facility] Medically noncomplia nt Medically noncomplia nt Disease Active 7- 00:00: 00 [facility] Thrush Thrush Disease Active 09-02 00:00: 00 [facility] Obesity (BMI 30-39.9) Obesity (BMI 30-39.9) Disease Active 05-31 00:00: 00 [facility] Genital warts Genital warts Disease Active 08-25 00:00: 00 [facility] H/O: hysterecto my H/O: hysterecto my Disease Active 08-25 00:00: 00 [facility] [id number] Allergic rhinitis, unspecifie d seasonalit y, unspecifie d trigger Problem [facility] [id number] Mental developmen carmen delay Problem [facility] [id number] History of hepatitis C Problem [facility] [id number] 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) Problem [facility] [id number] HIV disease Problem [facility] [id number] +5th digit eff 11/12/19*St age 1 chronic kidney disease Problem [facility] [id number] Chronic kidney disease, unspecifie d CKD stage Problem [facility] [id number] Essential hypertensi on Problem [facility] [id number] Chronic heart failure with preserved ejection fraction Problem [facility] [id number] Pulmonary emphysema, unspecifie d emphysema type Problem [facility] [id number] Mental disability Problem [facility] [id number] Lumbago with sciatica, right side Problem [facility] [id number] Lumbago with sciatica, left side Problem [facility] [id number] 07 On home O2 Problem Commo n [facility] [id number] Environmen carmen allergies Problem [facility] [id number] Vitamin D deficiency Problem [facility] [id number] Other chronic pain Problem [facility] [id number] Cardiac murmur Problem [facility] [id number] CHRIS (generaliz ed anxiety disorder) Problem [facility] [id number] Mixed hyperlipid emia Problem [facility] [id number] Seasonal allergies Problem [facility] Allergies, Adverse Reactions, Alerts Allergy Name Allergy Type Status Severity Reaction(s) Onset Date Inactive Date Treating Clinician Comments Source NO KNOWN ALLERGIE S Drug Class Active [facility] Social History Social Habit Start Date Stop Date Quantity Comments Source Gender identity [facility] Sexual orientation U [facility] History of Tobacco Use Current Smoker [facility] Sex Assigned At [facility] Alcoholic beverage intake 2023-05-16 00:00:00 2023-05-16 00:00:00 Current non-drinker of alcohol (finding) [facility] Alcohol intake 2023-05-16 00:00:00 2023-05-16 00:00:00 Current non-drinker of alcohol (finding) [facility] Exposure to SARS-CoV-2 (event) 2022-03-24 00:00:00 2022-04-03 13:07:00 Not sure [facility] History of Social function 2022-04-03 00:00:00 2022-04-03 00:00:00 [facility] Tobacco use and exposure 2022-04-03 00:00:00 2022-04-03 00:00:00 Smokeless tobacco non-user [facility] Smoking Status Start Date Stop Date Source Current Smoker 2023-11-11 00:00:00 [facility] Never smoked tobacco [facility] Medications Ordered Medication Name Filled Medication Name Start Date Stop Date Current Medication? Ordering Clinician Indication Dosage Frequency Signature (SIG) Comments Components Source aspirin 81 mg tablet,ruchi yed release 04-09 00:00: 00 Yes mg Delfino Orta Biktarvy 50 mg-200 mg-25 mg tablet 04-09 00:00: 00 Yes mg Delfino Orta amlodipine 10 mg tablet 04-09 00:00: 00 Yes 1mg Delfino Orta losartan 100 mg-hydrochl orothiazide 12.5 mg tablet 04-09 00:00: 00 Yes 1mg Delfino Orta atorvastati n 40 mg tablet 04-09 00:00: 00 Yes 1mg Delfino Orta benzonatate 200 mg capsule 04-09 00:00: 00 Yes 1mg Delfino Orta doxepin 10 mg capsule 04-09 00:00: 00 Yes 1mg Delfino Orta melatonin 10 mg tablet 04-08 00:00: 00 Yes 1mg Delfino Orta amitriptyli ne 100 mg tablet 04-08 00:00: 00 Yes 1mg Delfino Orta Qvar RediHaler 80 mcg/actuati on HFA breath activated aerosol 03-09 00:00: 00 Yes 12mcg/a ctuatio n Delfino Orta ramelteon 8 mg tablet 03-09 00:00: 00 Yes 1mg Delfino Orta ibuprofen 800 mg tablet 03-09 00:00: 00 Yes 1mg Delfino Orta fluticasone propionate 50 mcg/actuati on nasal spray,suspe nsion 03-09 00:00: 00 Yes 2mcg/ac tuation Delfino Orta amitriptyli ne 100 mg tablet 02-25 00:00: 00 Yes 1mg Delfino Orta fluticasone propionate 50 mcg/actuati on nasal spray,suspe nsion 02-25 00:00: 00 Yes 2mcg/ac tuation Delfino Orta duloxetine 60 mg capsule,del ayed release - 00:00: 00 Yes 1mg Delfino Orta albuterol sulfate HFA 90 mcg/actuati on aerosol inhaler - 00:00: 00 Yes mcg/act uation Delfino Orta ibuprofen 800 mg tablet - 00:00: 00 Yes 1mg Delfino Orta trazodone 50 mg tablet 02-24 00:00: 00 Yes 12mg Delfino Orta albuterol sulfate HFA 90 mcg/actuati on aerosol inhaler 2023-02 00:00: 00 Yes mcg/act uation Delfino Orta baclofen 5 mg tablet 2023-02- 00:00: 00 Yes 1mg Delfino Orta duloxetine 30 mg capsule,del ayed release 2023-02 00:00: 00 Yes 1mg Delfino Orta ibuprofen 800 mg tablet 2023-02 00:00: 00 Yes 1mg Delfino Orta ibuprofen 800 mg tablet 2023-02- 00:00: 00 Yes 1mg Delfino Orta triamcinolo ne acetonide 0.1 % topical cream 2023-02 00:00: 00 Yes 1% Delfino Orta fluticasone propionate 50 mcg/actuati on nasal spray,suspe nsion 2023-02 00:00: 00 Yes 2mcg/ac tuation Delfino Orta [...] duloxetine 30 mg capsule,del ayed release 2023-02 014 00:00: 00 Yes 1mg Delfino Orta albuterol [...] 00:00: 00 No 40mg [facility] baclofen 5 mg tablet 11-01 00:00: 00 Yes 1mg Delfino Orta ibuprofen 800 mg tablet 11-01 00:00: 00 Yes 1mg Delfino Orta duloxetine 30 mg capsule,del ayed release 0 11-01 00:00: 00 Yes 1mg Delfino Orta aspirin 81 mg tablet,ruchi yed release 10-15 00:00: 00 Yes mg Delfino Orta albuterol sulfate HFA 90 mcg/actuati on aerosol inhaler 10-10 00:00: 00 Yes mcg/act uation Delfino Orta triamcinolo ne acetonide 0.1 % topical cream 10-10 00:00: 00 Yes 1% Delfino Orta losartan 100 mg-hydrochl orothiazide 12.5 mg tablet 0 10-10 00:00: 00 Yes 1mg Delfino Orta [...] 09-30 00:00: 00 Yes 12mcg/a ctuatio n Dlefino Orta albuterol sulfate HFA 90 mcg/actuati on aerosol inhaler 09-23 00:00: 00 Yes mcg/act uation Delfino Orta losartan 100 mg-hydrochl orothiazide 12.5 mg tablet 09-23 00:00: 00 Yes 1mg Delfino Orta amlodipine 10 mg tablet 09-23 00:00: 00 Yes 1mg Delfino Orta baclofen 5 mg tablet 0 09-23 00:00: 00 Yes 1mg Delfino Orta trazodone 50 mg tablet 09-23 00:00: 00 Yes 12mg Delfino Orta atorvastati n 40 mg tablet 0 09-23 00:00: 00 Yes 1mg Delfino Orta albuterol sulfate HFA 90 mcg/actuati on aerosol inhaler 0 - 00:00: 00 Yes mcg/act uation Delfino Orta amlodipine 10 mg tablet 0 - 00:00: 00 Yes 1mg Delfino Orta losartan 100 mg-hydrochl orothiazide 12.5 mg tablet 0 - 00:00: 00 Yes 1mg Delfino Orta baclofen 5 mg tablet 0 09-15 00:00: 00 Yes [...] 1% Delfino Orta amoxicillin 500 mg tablet 0 08-30 00:00: 00 Yes 1mg Delfino Orta [...] HFA 90 mcg/actuati on aerosol inhaler 0 08-08 00:00: 00 Yes mcg/act uation Delfino [...] 05-20 00:00: 00 06-20 04:59 :00 No [id number] 81mg Take 1 tablet by mouth in the morning for 30 days. [facility] predniSONE 20 mg tablet 05-20 00:00: 00 05-24 04:59 :00 No [id number] 40mg Take 2 tablets by mouth in the morning for 3 days. [facility] ALPRAZOLAM ORAL 05-19 16:42: 32 Yes Take by mouth. [facility] celecoxib 400 mg capsule 05-19 16:42: 32 Yes 400mg Take 1 capsule by mouth in the morning. [facility] atorvastati n (LIPITOR) tablet 40 mg 05-19 02:00: 00 Yes 40mg 40 mg, Oral, QHS, First dose on 05/19/23 at 2100, Until Discontinu ed, [facility] tablet,ruchi yed release 05-19 00:00: 00 Yes mg Delfino Orta PREDNISONE 20MG 05-19 00:00: 00 Yes Delfino Orta budesonide 0.5 mg/2 mL nebulizer solution 05-19 00:00: 00 06-19 04:59 :00 No [id number] 1mg Inhale 4 mL every 12 (twelve) hours for 30 days. [facility] aspirin EC tablet 81 mg 05-18 20:45: 00 Yes 81mg 81 mg, Oral, DAILY, First dose on 05/19/23 at 1545, Until Discontinu ed, Routine [facility] predniSONE (DELTASONE) tablet 40 mg 05-18 14:00: 00 Yes 40mg 40 mg, Oral, DAILY, First dose on 05/19/23 at 0900, Until Discontinu ed, Routine [facility] methylpredn isolone sod succ (SOLU-MEDRO L) injection 125 mg 05-17 10:00: 00 05-17 14:54 :19 No 125mg 125 mg, Slow IV Push, Q6H ABX, First dose on Sat05/18/23 at 0500, Until Discontinu ed, Routine [facility] budesonide (PULMICORT RESPULE) nebulizer solution 1 mg 05-17 07:00: 00 Yes 1mg 1 mg, Inhalation , Q12H, First dose on Sat05/18/23 at 0200, Until Discontinu ed, Routine
social work faculty member approving non-formul fanta medication : LEFTY ABREU
[place] son for non-formul fanta use: Treatment failure with formulary alternativ e [facility] sulfamethox azole-trime thoprim (BACTRIM DS) 800-160 mg per tablet 1 tablet 05-17 01:00: 00 Yes 1{tbl} 1 tablet, Oral, QMON/SAT/ RI AT 1999, First dose on Sat05/17/23 at 2000, Until Discontinu ed, Routine
Reason for Anti-Infec tive: Empiric Non-Surgic al Prophylaxi s
Durat ion of therapy: 5 days [facility] predniSONE 20 mg tablet 05-17 00:00: 00 05-21 04:59 :00 No [id number] 20mg Take 1 tablet by mouth in the morning for 3 days. [facility] NaCl 0.9% (NS) IV infusion 1,000 mL 05-16 21:00: 00 Yes 1000mL at 75 mL/hr, IV Infusion, CONTINUOUS , Starting on Sat05/17/23 at 1600, Until Discontinu ed, Routine [facility] magnesium sulfate in water 2 gram/50 mL (4 %) infusion 2 g 05-16 18:45: 00 05-16 19:50 :00 No 2g 2 g, IV Piggyback, Administer over 60 Minutes, ONCE, 1 dose, On Sat05/17/23 at 1345, Routine [facility] losartan (COZAAR) tablet 100 mg 05-16 14:00: 00 Yes 100mg 100 mg, Oral, DAILY, First dose on Sat05/17/23 at 0900, Until Discontinu ed, Routine [facility] fluconazole (DIFLUCAN) tablet 200 mg 05-16 14:00: 00 Yes 200mg 200 mg, Oral, DAILY, First dose on Sat05/17/23 at 0900, Until Discontinu ed, ANTONIETTA
Re ason for Anti-Infec tive: Empiric Non-Surgic al Prophylaxi s
Durat ion of therapy: 5 days [facility] bictegrav-e mtricit-ten ofov ala (BIKTARVY) [...] home supply? Yes
Dos age Form: Capsule [facility] predniSONE (DELTASONE) tablet 40 mg 05-16 14:00: 00 05-17 09:48 :38 No 40mg 40 mg, Oral, DAILY, 5 doses, First dose on Sat05/17/23 at 0900, Last dose on Sat05/21/23 at 0900, Routine [facility] metoprolol tartrate (LOPRESSOR) tablet 12.5 mg 05-16 13:00: 00 Yes 12.5mg 12.5 mg, Oral, BID, First dose on Sat05/17/23 at 0800, Until Discontinu ed, Routine [facility] fluticasone propionate (FLOVENT HFA) 220 mcg/actuati on inhaler 2 Puff 05-16 13:00: 00 Yes 2{puff} 2 Puff, Inhalation , Q12H, First dose on Sat05/17/23 at 0800, Until Discontinu ed, Routine
Is this order for a patient with suspected or confirmed COVID-19 infection? No [facility] cetirizine (ZYRTEC) tablet 10 mg 05-16 03:00: 00 Yes 10mg 10 mg, Oral, QHS, First dose on Farrah 05/16/23 at 2200, Until Discontinu ed [facility] amLODIPine (NORVASC) tablet 10 mg 05-16 03:00: 00 Yes 10mg 10 mg, Oral, DAILY, First dose on Farrah 05/16/23 at 2200, Until Discontinu ed, Routine [facility] heparin (porcine) injection 5,000 Units 05-16 03:00: 00 Yes 5000U 5,000 Units, Subcutaneo us, Q8H, First dose on Farrah 05/16/23 at 2200, Until Discontinu ed, Routine [facility] albuterol (VENTOLIN) inhaler 2 Puff 05-16 02:35: 18 Yes 2{puff} 2 Puff, Inhalation , Q6HPRN, Starting on Farrah 05/16/23 at 2135, Until Discontinu ed, Routine, Wheezing, Shortness of Breath [facility] ipratropium -albuteroL (DUONEB) 0.5 mg-3 mg(2.5 mg base)/3 mL nebulizer solution 3 mL 05-15 21:00: 00 05-15 18:01 :47 No 3mL 3 mL, Inhalation , QID, First dose on Sat05/16/23 at 1600, Until Discontinu ed, Routine [facility] azithromyci n (ZITHROMAX) 500 mg [...] y
Durat ion of therapy: 72 hours [facility] magnesium sulfate in water 2 gram/50 mL (4 %) infusion 2 g 05-15 19:45: 00 05-15 19:54 :00 No 2g 2 g, IV Piggyback, Administer over 60 Minutes, ONCE, 1 dose, On Farrah 05/16/23 at 1445, Routine [facility] albuterol (PROVENTIL) 2.5 mg /3 mL (0.083 %) nebulizer solution 7.5 mg 05-15 19:45: 00 05-15 18:54 :00 No 7.5mg 7.5 mg, Inhalation , ONCE, 1 dose, On Farrah 05/16/23 at 1445, ANTONIETTA [facility] acetaminoph en (TYLENOL) tablet 650 mg 05-15 19:30: 37 Yes 650mg 650 mg, Oral, Q6HPRN, Starting on Farrah 05/16/23 at 1430, Until Discontinu ed, Routine, Pain (scale 1-3) [facility] NaCl 0.9% (NS) bolus infusion 1,000 mL 05-15 18:30: 00 05-15 19:34 :00 No 1000mL at 999 mL/hr, 1,000 mL, IV Infusion, ONCE, 1 dose, On Farrah 05/16/23 at 1330, ANTONIETTA [facility] budesonide (PULMICORT RESPULE) nebulizer solution 1 mg 05-15 18:15: 00 05-15 17:40 :00 No 1mg 1 mg, Inhalation , ONCE, 1 dose, On Farrah 05/16/23 at 1315, Routine [facility] albuterol (PROVENTIL) 2.5 mg /3 mL (0.083 %) nebulizer solution 5 mg 05-15 18:00: 00 05-15 18:03 :00 No 5mg 5 mg, Inhalation , ONCE, 1 dose, On Farrah 05/16/23 at 1315, STAT [facility] methylpredn isolone sod succ (SOLU-MEDRO L) injection 125 mg 05-15 17:31: 00 05-15 17:41 :00 No 125mg 125 mg, Intravenou s, ONCE, 1 dose, On Farrah 05/16/23 at 1245, ANTONIETTA [facility] sodium chloride (NS) injection 5 mL 05-15 17:25: 52 Yes 5mL 5 mL, Intravenou s, PRN, Starting on Farrah 05/16/23 at 1225, Until Discontinu ed, Routine, IV line flushing [facility] IBUPROFEN 600MG 05-12 00:00: 00 [...] 04-02 00:00: 00 06-25 00:00 :00 No [id number] Delfino Orta TAKE 1 TABLET DAILY. 04-02 00:00: 00 06-25 00:00 :00 No 20 Delfino Orta naproxen (NAPROSYN) tablet 250 mg 03-20 23:00: 00 Yes 250mg 250 mg, Oral, BID MEALS, First dose on Sat03/20/23 at 1700, Until Discontinu ed, Routine [facility] albuterol sulfate HFA 90 mcg/actuati on aerosol inhaler 03-20 00:00: 00 Yes mcg/act uation Delfino Orta TAKE 1 TABLET BY MOUTH TWICE DAILY FOR 20 DOSES TAKE IN THE MORNINGS AND THE EVENINGS 03-20 00:00: 00 Yes Delfino Orta hydrocortis one 1%-nystatin -zinc oxide Oint ointment 03-20 00:00: 00 Yes [id number] Apply to affected area(s) as needed for Dermatitis /Rash. [facility] albuterol 90 mcg/actuati on inhaler 03-20 00:00: 00 Yes [id number] 2{puff} Inhale 2 Puffs every 6 (six) hours as needed for Wheezing or Shortness of Breath. [facility] naproxen 250 mg tablet 03-20 00:00: 00 03-31 05:59 :00 No [id number] 250mg Take 1 tablet by mouth in the morning and 1 tablet in the evening. Take with meals. Do all this for 20 doses. [facility] Qvar RediHaler 80 mcg/actuati on HFA breath activated aerosol 03-07 00:00: 00 Yes mcg/act uation Delfino Orta TAKE 1 TABLET DAILY. 03-07 00:00: 00 Yes 10 Delfino Orta TAKE 1 TABLET DAILY. 03-07 00:00: 00 Yes [id number] Delfino Orta TAKE 1 TABLET BY MOUTH [...] Yes Delfino Orta LOSARTAN/HC T 100-12.5 2022-02 030 00:00: 00 Yes Delfino Orta sulfamethox azole 800 mg-trimetho prim 160 mg tablet 11-01 00:00: 00 Yes mg Delfino Orta INHALE 1 TO 2 PUFFS BY MOUTH EVERY 6 HOURS NEEDED. 11-01 00:00: 00 06-25 00:00 :00 No [id number] Delfino Orta TAKE 1 TO 2 TABLETS [...] mcg/actuati on inhaler 09-17 00:00: 00 Yes [id number] 2{puff} Inhale 2 Puffs every 4 (four) hours as needed for Wheezing or Shortness of Breath. [facility] IBUPROFEN 600MG 09-17 00:00: 00 06-25 00:00 :00 No Delfino Orta TAKE 1 TABLET DAILY. 09-12 00:00: 00 06-25 00:00 :00 No [id number] Delfino Orta TAKE 1 TABLET DAILY. 09-12 00:00: 00 06-25 00:00 :00 No 10 Delfino Endy Orta 1-2 PUFFS Q 12 HOURS 8 00:00: 00 06-25 00:00 :00 No 80 Delfnio F You TAKE 1 TABLET BY MOUTH DAILY 8 00:00: 00 06-25 00:00 :00 No 40 Delfino F You TAKE 1 TABLET DAILY. 09-12 00:00: 00 06-25 00:00 :00 No 10 Delfino F You INHALE 1 TO 2 PUFFS BY MOUTH EVERY 6 HOURS NEEDED. 09-12 00:00: 00 06-25 00:00 :00 No [id number] Delfino Endy Orta INHALE 2 PUFFS TWICE DAILY. RINSE MOUTH AFTER USE. 09-12 00:00: 00 06-25 00:00 :00 No 220 Delfino F You TAKE 1 TO 2 TABLETS AT BEDTIME 09-12 00:00: 00 06-25 00:00 :00 No 25 Delfino F You ALBUTEROL PA HFA 200 INH 09-06 00:00: 00 Yes Delfino Endy Orta TAKE 1 TABLET DAILY. 08-02 00:00: 00 06-25 00:00 :00 No 75 Delfino F You TAKE 1 TO 2 TABLETS AT BEDTIME 08-01 00:00: 00 06-25 00:00 :00 No 25 Delfino F You 1-2 PUFFS Q 12 HOURS 07-05 00:00: 00 06-25 00:00 :00 No 80 Delfino F You INHALE 1 TO 2 PUFFS BY MOUTH EVERY 6 HOURS NEEDED. 07-04 00:00: 00 06-25 00:00 :00 No [id number] Delfino F You TAKE 1 TABLET DAILY. - 00:00: 00 06-25 00:00 :00 No 10 Delfino F You TAKE 1 TABLET BY MOUTH DAILY 07-04 00:00: 00 06-25 00:00 :00 No 40 Delfino F You TAKE 1 TABLET AT BEDTIME. 07-04 00:00: 00 06-25 00:00 :00 No 45 Delfino Orta INHALE 2 PUFFS TWICE DAILY. RINSE MOUTH AFTER USE. 07-04 00:00: 00 06-25 00:00 :00 No 220 Delfino Orta TAKE 1 TABLET DAILY. 07-04 00:00: 00 06-25 00:00 :00 No [id number] Delfino Orta TAKE 1 TABLET DAILY. 07-04 00:00: 00 06-25 00:00 :00 No 20 Delfino Orta TAKE 1 TABLET EVERY 8 HOURS WITH FOOD NEEDED. 07-04 00:00: 00 06-25 00:00 :00 No 800 Delfino Orta TAKE 1 TABLET BY MOUTH DAILY 06-27 00:00: 00 06-25 00:00 :00 No 40 Delfino Orta ALBUTEROL PA HFA 200 INH 4-04 00:00: 00 06-25 00:00 :00 No Delfino Orta NITROFUR MON 100MG 4- 00:00: 00 06-25 00:00 :00 No Delfino Orta TAKE 1 TABLET DAILY. 04-19 00:00: 00 06-25 00:00 :00 No [id number] Delfino Orta TAKE 1 TABLET DAILY. 04-19 00:00: 00 06-25 00:00 :00 No 20 Delfino Orta AMLODIPINE BESYLATE 10 MG TABS - 00:00: 00 06-25 00:00 :00 No Delfino Orta IBUPROFEN 600 MG TABS - 00:00: 00 06-25 00:00 :00 No Delfino Orta CHLORHEXIDI NE GLUCONATE 0.12 % SOLN 3- 00:00: 00 06-25 00:00 :00 No Delfino Orta bictegrav-e mtricit-ten ofov ala 50-200-25 mg tablet 2-21 00:00: 00 Yes [id number] 1{tbl} Take 1 tablet by mouth in the morning. [facility] fluconazole 200 mg tablet 04-03 00:00: 00 Yes [id number] 200mg Take 1 tablet by mouth in the morning. [facility] sulfamethox azole-trime thoprim 800-160 mg per tablet 04-03 00:00: 00 Yes [id number] 1{tbl} Take 1 tablet by mouth in the morning. [facility] sulfamethox azole 800 mg-trimetho prim [...] 03-30 00:00: 00 06-25 00:00 :00 No [id number] Delfino Orta atorvastati n 40 mg tablet [...] ESTRELLA 03-08 00:00: 00 06-25 00:00 :00 Eva Orta INHALE 1 TO 2 PUFFS BY MOUTH EVERY 6 HOURS NEEDED. 03-06 00:00: 00 06-25 00:00 :00 No [id number] Delfino Orta APPLY OINTMENT 3 TO 4 TIMES PER DAY TO AFFECTED AREA FOR 14 DAYS - 00:00: 00 No 20 APPLY OINTMENT 3 [...] CYCLOBENZAP RINE HYDROCHLORI DE 5 MG TABS 2022-1 2-14 00:00: 00 No TIZANIDINE HYDROCHLORI DE 4MG TAB 2021-0214 00:00: 00 No LOSARTAN POTASSIUM/H YDROCHLOROT HIAZ YASMIN 100-12.5 MG TABS 2021-02 2 00:00: 00 No FLUCONAZOLE 150MG TAB 2021-02 214 00:00: 00 No AMOXICILLIN 875 MG TABS 2021-02 2 00:00: 00 No TRAZODONE HYDROCHLORI DE 50 MG TABS 2021-02 2 00:00: 00 No VANCOMYCIN HYDROCHLORI DE 250 [...] 2021-02 00:00: 00 No Dose Unknown 2021-02 2- 00:00: 00 No Dose Unknown 2021-02 2- 00:00: 00 No Dose Unknown 2021-02 2 00:00: 00 No NYSTATIN [id number] ROOPA 2021-02 00:00: 00 No CITALOPRAM HYDROBROMID E 20MG TAB 2021-02 2 00:00: 00 No TAKE 1 TABLET DAILY. 2021-02 2 00:00: 00 06-25 00:00 :00 No Delfino F You TAKE 1 TABLET AT BEDTIME. 2021-02 00:00: 00 06-25 00:00 :00 Eva Orta APPLY TO AFFECTED AREA ON SKIN TWICE A DAY FOR 5 DAYS 2021-02 00:00: 00 06-25 00:00 :00 No Delfino Orta FLOVENT HFA 220MCG/A INH 2021-02 00:00: 00 06-25 00:00 :00 No Delfino Orta ATORVASTATI N CALCIUM 40 MG TABS 2021-02 00:00: 00 06-25 00:00 :00 No Delfino Orta CYCLOBENZAP RINE HYDROCHLORI DE 5 MG [...] 00 06-25 00:00 :00 No Delfino Orta TRAMADOL HCL 50 MG TABS 2021-02 00:00: 00 06-25 00:00 :00 No Delfino F You IBUPROFEN 400MG TAB 2021-02 214 00:00: 00 06-25 00:00 :00 No Delfino F You TAKE 1 TABLET BY MOUTH TWICE A DAY FOR 7 DAYS 2021-02 2-14 00:00: 00 06-25 00:00 :00 [...] Delfino F You MIRTAZAPINE 15MG TAB 2021-02 00:00: 00 06-25 [...] 00:00 :00 No Delfino F You NYSTATIN [id number] ROOPA 2021-02 2 00:00: 00 06-25 00:00 :00 No Delfino F You CITALOPRAM HYDROBROMID E 20MG TAB 2021-02 2-14 00:00: 00 06-25 00:00 :00 No Delfino F You Dose Unknown 2021-02 214 00:00: 00 06-25 00:00 :00 No Delfino F You TAKE 1 TABLET AT BEDTIME NEEDED. [...] Orta FLUTICASONE PROPIONATE 50 MCG/ACT SUSP 2021-02 00:00: [...] 10 Delfino Orta ALLOPURINOL 100 MG TABS 9- 00:00: 00 06-25 00:00 :00 No Delfino Orta AMLODIPINE BESYLATE 10MG TAB 0 8-18 00:00: 00 No AMLODIPINE BESYLATE 10MG TAB 0 8-18 00:00: 00 No AMLODIPINE BESYLATE 10MG TAB 0 8-18 00:00: 00 No AMLODIPINE BESYLATE 10MG TAB 0 8-18 00:00: 00 Yes Delfino Orta TAKE BY MOUTH 6 MILLILITERS 4 TIMES A DAY FOR 14 DAYS 0 7-20 00:00: 00 No Dose Unknown 0 7-20 00:00: 00 No TAKE BY MOUTH 6 MILLILITERS 4 TIMES A DAY FOR 14 DAYS 0 7-20 00:00: 00 No FLUTICASONE PROPIONATE 50MCG RX SPR 2021-0 7-20 00:00: 00 No TAKE BY MOUTH 6 MILLILITERS 4 TIMES A DAY FOR 14 DAYS 0 -20 00:00: 00 No Dose Unknown 08-30 00:00: 00 No TAKE BY MOUTH 6 MILLILITERS 4 TIMES A DAY FOR 14 DAYS 08-30 00:00: 00 Yes Delfino Orta FLUTICASONE PROPIONATE 50MCG RX SPR 08-30 00:00: 00 Yes Delfino Orta losartan 100 [...] mg tablet 08-07 00:00: 00 No 1mg Dose Unknown 08-07 00:00: 00 No Dose Unknown 0 08-07 00:00: 00 No Dose Unknown 08-07 00:00: 00 No fluticasone propionate 50 [...] 08-07 00:00: 00 No 1mcg/ac tuation &lt 08-07 00:00: 00 No &lt 0 08-07 [...] 08-07 00:00: 00 Yes Delfino Orta &lt 2022-0 08-07 00:00: 00 Yes Delfino Orta Dose Unknown 2021-0 08-07 00:00: 00 05 00:00 :00 No 400 Delfino Orta &lt 2022-0 08-04 00:00: 00 No &lt 2022-0 24 00:00: 00 No &lt 2022-0 24 00:00: 00 No &lt 2022-0 24 00:00: 00 Yes Delfino Orta mirtazapine 45 mg tablet 2021-0 08-02 00:00: 00 No 1mg TAKE 1 TABLET AT BEDTIME. 2021-0 08-02 00:00: 00 No mirtazapine 45 mg tablet 2-0 08-02 00:00: 00 No 1mg mirtazapine 45 mg tablet 2021-0 08-02 00:00: 00 Yes 1mg Delfino Orta &lt 2022-0 07-28 00:00: 00 No &lt 2022-0 617 00:00: 00 No &lt 2022-0 617 00:00: 00 No &lt 2022-0 6-17 00:00: 00 No &lt 2022-0 6-17 00:00: 00 No &lt 2022-0 6-17 00:00: 00 No &lt 2022-0 6-17 00:00: 00 Yes Delfino Orta &lt 2022-0 07-28 00:00: 00 Yes Delfino Orta imiquimod 3.75 % topical cream in a pump 0 07-03 00:00: 00 No 1% fluconazole 150 mg tablet 0 07-03 00:00: 00 No 1mg fluticasone propionate 50 mcg/actuati on nasal spray,suspe nsion 2021-0 07-03 00:00: 00 No 1mcg/ac tuation Dose Unknown 0 07-03 00:00: 00 No fluconazole 150 mg tablet 2021-0 07-03 00:00: 00 No 1mg fluticasone propionate 50 mcg/actuati on nasal spray,suspe nsion 2021-0 07-03 00:00: 00 No 1mcg/ac tuation imiquimod [...] 00:00: 00 Yes 1mcg/ac tuation Delfino Orta FLOVENT HFA 220MCG/A INH 07-03 00:00: 00 06-25 00:00 :00 No [id number] Delfino Orta sulfamethox azole-trime thoprim 800-160 mg per tablet 06-15 00:00: 00 04-03 00:00 :00 No [id number] 1{tbl} Take 1 tablet by mouth daily. [facility] ALPRAZOLAM ORAL 06-14 17:22: 53 Yes Take by mouth. [facility] efavirenz 600 mg tablet 06-14 00:00: 00 Yes [id number] 600mg Take 1 tablet by mouth daily. [facility] metoprolol tartrate 25 mg tablet 06-14 00:00: 00 Yes [id number] 12.5mg Take 0.5 tablets by mouth 2 (two) times daily. [facility] nystatin 100,000 unit/mL suspension 06-14 00:00: 00 Yes [id number] Take 5 mL by mouth 4 (four) times daily. [facility] amoxicillin -clavulanat e 875-125 mg per tablet 06-14 00:00: 00 04-03 00:00 :00 No [id number] 1{tbl} Take 1 tablet by mouth every 12 (twelve) hours. [facility] lamiVUDine 150 mg tablet 06-14 00:00: 00 04-03 00:00 :00 No [id number] 150mg Take 1 tablet by mouth 2 (two) times daily. [facility] ProAir HFA 90 mcg/actuati on [...] 00:00: 00 No 1mcg/ac tuation Dose Unknown 05-22 00:00: 00 No atorvastati n 40 mg tablet 05-22 00:00: 00 No 1mg amlodipine 10 mg tablet 05-22 00:00: 00 No 1mg allopurinol 100 mg tablet 05-22 00:00: 00 No 1mg mirtazapine 45 mg tablet 05-22 00:00: 00 No 1mg Dose Unknown 05-22 00:00: 00 No Dose Unknown 05-22 00:00: 00 No Dose Unknown 05-22 00:00: 00 No Dose Unknown - 00:00: 00 No Dose Unknown 05-22 00:00: 00 No fluticasone propionate 50 mcg/actuati on nasal spray,suspe nsion - 00:00: 00 No 1mcg/ac tuation ProAir HFA [...] 00 No 1mg mirtazapine 45 mg tablet - 00:00: 00 No 1mg fluticasone propionate 50 mcg/actuati on nasal spray,suspe nsion - 00:00: 00 No 1mcg/ac tuation ProAir HFA 90 mcg/actuati on aerosol inhaler - 00:00: 00 Yes 2mcg/ac tuation Delfino Orta atorvastati n 40 mg tablet - 00:00: 00 Yes 1mg Delfino Orta amlodipine 10 mg tablet - 00:00: 00 Yes 1mg Delfino Orta losartan 100 mg tablet 4- 00:00: 00 Yes 1mg Delfino Orta Epzicom 600 mg-300 mg tablet - 00:00: 00 Yes 1mg Delfino Orta citalopram 20 mg tablet 4- 00:00: 00 Yes 1mg Delfino Orta loratadine 10 mg tablet 0 4- 00:00: 00 Yes 1mg Delfino Orta allopurinol 100 mg tablet 2022-0 4-11 00:00: 00 Yes 1mg Delfino Orta cyclobenzap rine 5 mg tablet 0 4-11 00:00: 00 Yes 1mg Delfino Orta mirtazapine 45 mg tablet 0 4-11 00:00: 00 Yes 1mg Delfino Orta fluticasone propionate 50 mcg/actuati on nasal spray,suspe nsion 0 4-11 00:00: 00 Yes 1mcg/ac tuation Delfino Orta TRIAMCINOLO NE ACETONIDE 0.1% CRE 2021-0 4- 00:00: 00 06-25 00:00 :00 No 100 Delfino Orta Dose Unknown 0 3-23 00:00: 00 No Dose Unknown 2021-0 3-23 00:00: 00 No Dose Unknown 2021-0 3-23 00:00: 00 No Dose Unknown 2021-0 3-23 00:00: 00 No Dose Unknown 2021-0 3-23 00:00: 00 No Dose Unknown 2021-0 3-23 00:00: 00 No Dose Unknown 2021-0 3-23 00:00: 00 No Dose Unknown 2021-0 3-23 00:00: 00 No Dose Unknown 2-0 3-23 00:00: 00 No Dose Unknown 2-0 3-23 00:00: 00 Yes Delfino Orta Dose Unknown 2021-0 3-23 00:00: 00 Yes Delfino Orta Dose Unknown 2021-0 3-23 00:00: 00 Yes Delfino Orta FLOVENT HFA 220MCG/A INH 2021-0 3-23 00:00: 00 06-25 00:00 :00 No [id number] Delfino Orta Dose Unknown 2021-0 3-21 00:00: 00 No Dose Unknown 2-0 3-21 00:00: 00 No Dose Unknown 2022-0 3-21 00:00: 00 No Dose Unknown 2-0 3-21 00:00: 00 Yes Delfino Orta Dose Unknown 2021-0 3-20 00:00: 00 No Dose Unknown 2022-0 3-20 00:00: 00 No Dose Unknown 2022-0 3-20 00:00: 00 No Dose Unknown 2022-0 3-20 00:00: 00 Yes Delfino Orta Dose Unknown 2021-0 3-16 00:00: 00 No Dose Unknown 2021-0 3-16 00:00: 00 No Dose Unknown 2021-0 3-16 00:00: 00 No Dose Unknown 2021-0 3-16 00:00: 00 Yes Delfino Orta Dose Unknown 2021-0 3-15 00:00: 00 No Dose Unknown 2021-0 3-15 00:00: 00 No Dose Unknown 2021-0 3-15 00:00: 00 No Dose Unknown 2021-0 3-15 00:00: 00 No Dose Unknown 2021-0 3-15 00:00: 00 No Dose Unknown 2021-0 3-15 00:00: 00 No Dose Unknown 2021-0 3-15 00:00: 00 Yes Delfino Orta Dose Unknown 0 3-15 00:00: 00 Yes Delfino Orta Dose Unknown 0 1-26 00:00: 00 No fluticasone propionate 50 mcg/actuati on nasal spray,suspe nsion 2021-0 1- 00:00: 00 No 1mcg/ac tuation Dose Unknown 0 1-26 00:00: 00 No fluticasone propionate 50 mcg/actuati on nasal spray,suspe nsion 2021-0 1- 00:00: 00 No 1mcg/ac tuation Dose Unknown 0 1- 00:00: 00 No fluticasone propionate 50 mcg/actuati on nasal spray,suspe nsion 2021-0 1- 00:00: 00 No 1mcg/ac tuation Dose Unknown 0 1-26 00:00: 00 Yes Delfino Orta fluticasone propionate 50 mcg/actuati on nasal spray,suspe nsion 2021-0 1- 00:00: 00 Yes 1mcg/ac tuation Delfino Orta sulfamethox azole 800 mg-trimetho prim [...] Dose Unknown 2020-02 00:00: 00 Yes Delfino Schumacher You Dose Unknown 2020-02 00:00: 00 No Dose [...] tuation Dose Unknown 2020-02 2 00:00: 00 Yes [...] 10-31 00:00: 00 Yes 1% Delfino Orta cyclobenzap rine 5 mg tablet [...] 10-12 00:00: 00 Yes 1mg Delfino Orta losartan 100 mg tablet 09-30 00:00: 00 Yes [id number] 100mg Take 1 tablet by mouth daily. [facility] Flovent HFA 220 mcg/actuati on [...] mg tablet 09-17 00:00: 00 Yes 12mg Delifno Orta mirtazapine 45 mg tablet 09-17 00:00: [...] 00:00: 00 Yes 1mcg/ac tuation Delfino Orta amLODIPine 10 mg tablet 08-12 00:00: 00 Yes [id number] 10mg Take 1 tablet by mouth daily. [facility] atorvastati n 40 mg tablet 08-12 00:00: 00 Yes [id number] 40mg Take 1 tablet by mouth at bedtime. [facility] fluticasone propionate 50 mcg/actuati on nasal spray 07-20 00:00: 00 Yes [id number] 2{spray } Use 2 Sprays in each nostril daily. [facility] fluticasone propionate (FLOVENT HFA) 220 mcg/actuati on inhaler 07-20 00:00: 00 Yes [id number] 2{puff} Inhale 2 Puffs every 12 (twelve) hours. [facility] albuterol 90 mcg/actuati on inhaler 07-20 00:00: 00 03-20 00:00 :00 No [id number] 2{puff} Inhale 2 Puffs every 4 (four) hours as needed for Wheezing or Shortness of Breath. [facility] ibuprofen 800 mg tablet 07-19 00:00: 00 No 1mg ibuprofen 800 mg tablet 07-19 00:00: 00 No 1mg ibuprofen 800 mg tablet 07-19 00:00: 00 No 1mg ibuprofen 800 mg tablet 07-19 00:00: 00 Yes 1mg Delfino Orta ProAir [...] 06-17 00:00: 00 Yes 2mcg/ac tuation Delfino F [...] spray,suspe nsion 06-17 00:00: 00 Yes 1mcg/ac ernestina Orta Voltaren 1 % topical gel 04-22 00:00: 00 No 1% mirtazapine 45 mg tablet 04-22 00:00: 00 No 1mg Tessalon Perles 100 mg capsule 04-22 00:00: 00 No 12mg Voltaren 1 % topical gel - 00:00: 00 No 1% mirtazapine 45 mg tablet 04-22 00:00: 00 No 1mg Tessalon Perles 100 mg capsule 04-22 00:00: 00 No 12mg Voltaren 1 % topical gel - 00:00: 00 No 1% mirtazapine 45 mg tablet - 00:00: 00 No 1mg Tessalon Perles 100 mg capsule - 00:00: 00 No 12mg Voltaren 1 % topical gel 04-22 00:00: 00 Yes 1% Delfino Orta mirtazapine 45 mg tablet 04-22 00:00: 00 Yes 1mg Delfino Orta Tessalon Perles 100 mg capsule 04-22 00:00: 00 Yes 12mg Delfino Orta fluticasone propionate 50 mcg/actuati on nasal spray,suspe nsion 1- 00:00: 00 No 1mcg/ac tuation fluticasone propionate 50 mcg/actuati on nasal spray,suspe nsion 03-01 00:00: 00 No 1mcg/ac tuation fluticasone propionate 50 mcg/actuati on nasal spray,suspe nsion 03-01 00:00: 00 No 1mcg/ac tuation fluticasone propionate 50 mcg/actuati on nasal spray,suspe nsion 03-01 00:00: 00 Yes 1mcg/ac tuation Delfino Orta [...] 00 Yes 1(65 mg iron) Delfino Orta ProAir HFA 90 mcg/actuati on [...] Delfino Orta ibuprofen 800 mg tablet 2019-02 0 00:00: 00 Yes 1mg Delfino Orta loratadine 10 mg tablet 2019-02 0- 00:00: 00 Yes 1mg Delfino Orta Epzicom 600 mg-300 mg tablet 11-05 00:00: 00 No 1mg Epzicom 600 mg-300 mg tablet 11-05 00:00: 00 No 1mg Epzicom 600 mg-300 mg tablet 11-05 00:00: 00 No 1mg Epzicom 600 mg-300 mg tablet 11-05 00:00: 00 Yes 1mg Delfino Orta ProAir [...] 09-23 00:00: 00 Yes 1mg Delfino Orta Flovent HFA 220 mcg/actuati on aerosol inhaler 0 06-23 00:00: 00 No 2mcg/ac tuation ProAir [...] aerosol inhaler 06-23 00:00: 00 Yes 2mcg/ac tugilberto Orta ProAir HFA 90 mcg/actuati on aerosol inhaler 06-23 00:00: 00 Yes 1mcg/ac tuation Delifno Orta citalopram 20 mg tablet 06-23 00:00: [...] 05-04 00:00: 00 Yes 1mg Delfino Orta metronidazo le 500 mg tablet 04-03 00:00: 00 No 1mg metronidazo le 500 mg tablet 2020-0 2-21 00:00: 00 No 1mg metronidazo le 500 mg tablet 2019-0 2-21 00:00: 00 No 1mg metronidazo le 500 mg tablet 2019-0 2-21 00:00: 00 Yes 1mg Delfino Orta fluconazole 150 mg tablet 2019-0 2-18 00:00: 00 No 1mg fluconazole 150 mg tablet 2019-0 2-18 00:00: 00 No 1mg fluconazole 150 mg tablet 0 2-18 00:00: 00 No 1mg fluconazole 150 mg tablet 0 2-18 00:00: 00 Yes 1mg Delfino Orta Flovent HFA 220 mcg/actuati on aerosol inhaler 2019-0 2-11 00:00: 00 No 2mcg/ac tuation Flovent [...] aerosol inhaler 2019-0 2-11 00:00: 00 Yes 2mcg/ac tuation Delfino Orta ProAir HFA 90 mcg/actuati on aerosol inhaler 2019-0 2-11 00:00: 00 Yes 1mcg/ac tuation Delfino Orta Epzicom 600 mg-300 mg tablet 2019-0 2-11 00:00: 00 Yes 1mg Delfino Orta ProAir HFA 90 mcg/actuati on aerosol inhaler 02-26 00:00: 00 No 1mcg/ac tuation ProAir HFA 90 mcg/actuati on aerosol inhaler 02-26 00:00: 00 No 1mcg/ac tuation ProAir HFA 90 mcg/actuati on aerosol inhaler 02-26 00:00: 00 No 1mcg/ac tuation ProAir HFA 90 mcg/actuati on aerosol inhaler 02-26 00:00: 00 Yes 1mcg/ac tuation Delfino Orta [...] nsion - 00:00: 00 No 1mcg/ac tuation indomethaci n 25 mg capsule 02-18 00:00: 00 No 1mg Flovent HFA 220 mcg/actuati on aerosol inhaler - 00:00: 00 No 2mcg/ac tuation allopurinol 100 mg tablet - 00:00: 00 No 1mg losartan 100 mg tablet 02-18 00:00: 00 No 1mg amlodipine 10 mg tablet - 00:00: 00 No 1mg atorvastati n 40 mg tablet - 00:00: [...] 02-18 00:00: 00 Yes 1mg Delfino Orta allopurinol 100 mg tablet 2018-02 [...] 00:00: 00 Yes 1mcg/ac tuation Delfino Orta mirtazapine 30 mg tablet 2018-02 [...] 00:00: 00 Yes 2mcg/ac tuation Delfino Orta Bactrim DS 800 mg-160 mg tablet 2018-02 021 00:00: 00 No 1mg Bactrim DS 800 mg-160 mg tablet 2018-02 021 00:00: 00 No 1mg Bactrim DS 800 mg-160 mg tablet 2018-02 0 00:00: 00 No 1mg Bactrim DS 800 mg-160 mg tablet 2018-02 0 00:00: 00 Yes 1mg Delfino Orta Flovent [...] 1mcg/ac tuation allopurinol 100 mg tablet 2018-02 0-16 00:00: 00 No 1mg amlodipine 10 mg [...] mcg/actuati on aerosol inhaler 2018-0216 00:00: 00 Yes 1mcg/ac tuation Delfino Orta allopurinol 100 mg tablet 2018-02 016 00:00: 00 Yes 1mg Delfino Orta amlodipine 10 mg tablet 2018-02 016 00:00: 00 Yes 1mg Delfino Orta mirtazapine 30 mg tablet 2018-02 016 00:00: 00 Yes 1mg Delfino Orta loratadine 10 mg tablet 2018-02 [...] loratadine 10 mg tablet 2018-02 00:00: 00 Yes 1mg Delfino Orta fluticasone propionate 50 mcg/actuati on nasal spray,suspe nsion 2018-02 00:00: 00 Yes 1mcg/ac tuation Delfino Orta chlorhexidi ne (PERIDEX) 0.12 % mouthwash 2018-02 00:00: 00 Yes [id number] 15mL Swish and spit out 15 mL 2 (two) times daily. [facility] chlorhexidi ne (PERIDEX) 0.12 % mouthwash 2018-02 00:00: 00 Yes [id number] 15mL Swish and spit out 15 mL 2 (two) times daily. [facility] allopurinol 100 mg tablet 11-03 00:00: 00 No 1mg allopurinol 100 mg tablet 11-03 00:00: 00 No 1mg allopurinol 100 mg tablet 11-03 00:00: 00 No 1mg allopurinol 100 mg tablet 11-03 00:00: 00 Yes 1mg Delfino Orta amlodipine [...] 10-28 00:00: 00 Yes 1mg Delfino Orta Flovent HFA 220 mcg/actuati on aerosol inhaler 10-14 00:00: 00 No 2mcg/ac tuation ProAir HFA 90 mcg/actuati on aerosol inhaler 10-14 00:00: 00 No 1mcg/ac tuation loratadine 10 mg tablet 0 10-14 00:00: 00 No 1mg cyclobenzap rine 10 mg tablet 0 10-14 00:00: 00 No 1mg fluticasone propionate 50 mcg/actuati on nasal spray,suspe nsion 0 10-14 00:00: 00 No 1mcg/ac tuation Flovent [...] aerosol inhaler 0 10-14 00:00: 00 Yes 2mcg/ac tuation Delfino F You ProAir HFA 90 mcg/actuati on aerosol inhaler 0 10-14 00:00: 00 Yes 1mcg/ac tuation Delfino F You loratadine 10 mg tablet 10-14 00:00: 00 Yes 1mg Delfino F You cyclobenzap rine 10 mg tablet 0 10-14 00:00: 00 Yes 1mg Delfino F You fluticasone propionate 50 mcg/actuati on nasal spray,suspe nsion 10-14 00:00: 00 Yes 1mcg/ac tuation Delfino Orta benzonatate 100 mg capsule 10-02 00:00: 00 No 1mg benzonatate 100 mg capsule 10-02 00:00: 00 No 1mg benzonatate 100 mg capsule 10-02 00:00: 00 No 1mg benzonatate 100 mg capsule 10-02 00:00: 00 Yes 1mg Delfino Orta Flovent HFA 220 mcg/actuati on aerosol inhaler 09-08 00:00: 00 No 2mcg/ac tuation ProAir HFA 90 mcg/actuati on aerosol inhaler 09-08 00:00: 00 No 1mcg/ac tuation Flovent HFA 220 mcg/actuati on aerosol inhaler 09-08 00:00: 00 Yes 2mcg/ac tuation Delfino Orta ProAir HFA 90 mcg/actuati on aerosol inhaler 09-08 00:00: 00 Yes 1mcg/ac tuation Delfino Orta allopurinol 100 mg tablet 09-08 00:00: 00 No 1mg citalopram 20 mg tablet 09-08 00:00: 00 No 1mg allopurinol 100 mg tablet 09-08 00:00: 00 Yes 1mg Delfino Orta Flovent HFA 220 mcg/actuati on aerosol inhaler 09-08 00:00: 00 No 2mcg/ac tuation citalopram 20 mg tablet 09-08 00:00: 00 Yes 1mg Delfino Orta ProAir [...] tablet 04-22 00:00: 00 Yes 1mg Delfino Orta amlodipine 10 mg tablet 04-22 00:00: 00 No 1mg amlodipine 10 mg tablet 04-22 00:00: 00 No 1mg amlodipine 10 mg tablet 12 00:00: 00 No 1mg Flovent HFA 220 mcg/actuati on aerosol inhaler 2017-02 0 00:00: 00 Yes 2mcg/ac tuation Delfino Orta ProAir HFA 90 mcg/actuati on aerosol inhaler 2017-02 0 00:00: 00 Yes 1mcg/ac tuation Delfino Orta citalopram 20 mg tablet 2017-02 0-03 00:00: 00 Yes 1mg Delfino Orta Keflex 500 mg capsule 2017-02 0-03 00:00: 00 Yes 1mg Delfino Orta nystatin 100,000 unit/mL oral suspension 2017-02 003 00:00: 00 Yes 5unit/m L Delfino Orta [...] 2016-02 00:00: 00 Yes 1mcg/ac tuation Delfino rOta ibuprofen 800 mg tablet 2016-02 00:00: 00 [...] Take 1 Cap by mouth at bedtime. [facility] Bictegravir -Emtricitab -Tenofov 50-200-25 MG Bictegravir [...] Recombinant, Arexvy 0.5ML 2023-09-25 00:00:00 Olaf Orta Influenza Virus Vaccine 2023-07-02 00:00:00 Completed [facility] TDAP 2023-07-02 00:00:00 Completed [facility] Evusheld (Cilgavimab) 2023-07-02 00:00:00 Completed [facility] Evusheld (Tixagevimab) 2023-07-02 00:00:00 Completed [facility] Influenza Virus Vaccine 2023-05-21 00:00:00 Completed [facility] TDAP 2023-05-21 00:00:00 Completed [facility] Evusheld (Cilgavimab) 2023-05-21 00:00:00 Completed [facility] Evusheld (Tixagevimab) 2023-05-21 00:00:00 Completed [facility] Influenza Virus Vaccine 2023-05-16 12:13:00 Completed [facility] TDAP 2023-05-16 12:13:00 Completed [facility] Evusheld (Cilgavimab) 2023-05-16 12:13:00 Completed [facility] Evusheld (Tixagevimab) 2023-05-16 12:13:00 Completed [facility] Influenza Virus Vaccine 2023-03-20 10:44:00 Completed [facility] TDAP 2023-03-20 10:44:00 Completed [facility] Evusheld (Cilgavimab) 2023-03-20 10:44:00 Completed [facility] Evusheld (Tixagevimab) 2023-03-20 10:44:00 Completed [facility] Hep A-Hep B Hep A-Hep B 2022-09-24 00:00:00 Completed Delfino Orta influenza, injectable influenza, injectable 2022-09-24 00:00:00 Completed Delfino Orta SHINGRIX VACCINE SHINGRIX VACCINE 2022-09-24 00:00:00 Completed Delfino Orta Hep A-Hep B Hep A-Hep B 2022-09-24 00:00:00 Completed Delfino Orta influenza, injectable influenza, injectable 2022-09-24 00:00:00 Completed Delfino Orta SHINGRIX VACCINE SHINGRIX VACCINE 2022-09-24 00:00:00 Completed Delfino Orta Evusheld (Cilgavimab) 2021-06-13 00:00:00 Completed [facility] Evusheld (Tixagevimab) 2021-06-13 00:00:00 Completed [facility] Evusheld (Cilgavimab) 2021-06-13 00:00:00 Completed [facility] Evusheld (Tixagevimab) 2021-06-13 00:00:00 Completed [facility] Evusheld (Cilgavimab) 2021-06-13 00:00:00 Completed [facility] Evusheld (Tixagevimab) 2021-06-13 00:00:00 Completed [facility] Evusheld (Cilgavimab) 2021-06-13 00:00:00 Completed [facility] Evusheld (Tixagevimab) 2021-06-13 00:00:00 Completed [facility]Cil[facility] 2021-06-13 00:00:00 Completed [facility] (Tixagevimab) 2021-06-13 00:00:00 Completed [facility]Cilgavimab) 2021-06-13 00:00:00 Completed [facility] 2021-06-13 00:00:00 Completed [facility]Cil[facility] 2021-06-13 00:00:00 Completed [facility] (Tixagevimab) 2021-06-13 00:00:00 Completed [facility] (Cilgavimab) 2021-06-13 00:00:00 Completed [facility] (Tixagevimab) 2021-06-13 00:00:00 Completed [facility] (Cilgavimab) 2021-06-13 00:00:00 Completed [facility] (Tixagevimab) 2021-06-13 00:00:00 Completed [facility] (Cilgavimab) 2021-06-13 00:00:00 Completed [facility] Evusheld (Tixagevimab) 2021-06-13 00:00:00 Completed [facility] (Cilgavimab) 2021-06-13 00:00:00 Completed [facility] (Tixagevimab) 2021-06-13 00:00:00 Completed Moderna COVID-19 Vaccine Moderna COVID-19 Vaccine 2021-02-20 [...] Completed Delfino Orta TDAP 2014-08-19 00:00:00 Completed [facility] TDAP 2014-08-19 00:00:00 Completed [facility] TDAP 2014-08-19 00:00:00 Completed [facility] TDAP 2014-08-19 00:00:00 Completed [facility] TDAP 2014-08-19 00:00:00 Completed [facility] TDAP 2014-08-19 00:00:00 Completed [facility] TDAP 2014-08-19 00:00:00 Completed [facility] TDAP 2014-08-19 00:00:00 Completed [facility] TDAP 2014-08-19 00:00:00 Completed [facility] TDAP 2014-08-19 00:00:00 Completed [facility] TDAP 2014-08-19 00:00:00 Completed [facility] Influenza Virus Vaccine 2012-01-21 00:00:00 Completed [facility] Influenza Virus Vaccine 2012-01-21 00:00:00 Completed [facility] Influenza Virus Vaccine 2012-01-21 00:00:00 Completed [facility] Influenza Virus Vaccine 2012-01-21 00:00:00 Completed [facility] Influenza Virus Vaccine 2012-01-21 00:00:00 Completed [facility] Influenza Virus Vaccine 2012-01-21 00:00:00 Completed [facility] Influenza Virus Vaccine 2012-01-21 00:00:00 Completed [facility] Influenza Virus Vaccine 2012-01-21 00:00:00 Completed [facility] Influenza Virus Vaccine 2012-01-21 00:00:00 Completed [facility] Influenza Virus Vaccine 2012-01-21 00:00:00 Completed [facility] Influenza Virus Vaccine 2012-01-21 00:00:00 Completed [facility] Vital Signs Vital Name Observation Time Observation Value Comments Mirna cline height 2023-11-11 15:00:00 62.5 [in_i] Comm on [facility] weight 2023-11-11 15:00:00 118.2 [lb_av] Co mmon [facility] temperature 2023-11-11 15:00:00 97.8 [degF] Com mon [facility] bmi 2023-11-11 15:00:00 21.27 kg/m2 Comm on [facility] oximetry 2023-11-11 15:00:00 93 % Commo n [facility] respiratory rate 2023-11-11 15:00:00 18 /min [facility] blood pressure systolic 2023-11-11 15:00:00 114 mm[Hg] [facility] blood pressure diastolic 2023-11-11 15:00:00 68 mm[Hg] [facility] Respiratory rate 2023-05-20 20:47:00 16 /min [facility] Oxygen saturation in Arterial blood by Pulse oximetry 2023-05-20 20:47:00 97 /min [facility] Systolic blood pressure 2023-05-20 16:21:00 136 mm[Hg] [facility] Diastolic blood pressure 2023-05-20 16:21:00 81 mm[Hg] [facility] Heart rate 2023-05-20 16:21:00 81 /min [facility] Body temperature 2023-05-20 16:21:00 36.17 [place] [facility] Body weight 2023-05-20 08:12:00 57.063 kg [facility] BMI 2023-05-20 08:12:00 22.28 kg/m2 [facility] Body height 2023-05-16 20:58:00 160 cm [facility] Systolic blood pressure 2023-03-20 16:43:00 154 mm[Hg] [facility] Diastolic blood pressure 2023-03-20 16:43:00 87 mm[Hg] [facility] [facility] Heart rate 2023-03-20 16:43:00 77 /min [facility] Body temperature 2023-03-20 16:43:00 36.39 [facility] Respiratory rate 2023-03-20 16:43:00 16 /min [facility] Body height 2023-03-20 16:43:00 160 cm [facility] Body weight 2023-03-20 16:43:00 51.71 kg [facility] BMI 2023-03-20 16:43:00 20.19 kg/m2 [facility] Oxygen saturation in Arterial blood by Pulse oximetry 2023-03-20 16:43:00 100 /min [facility] Systolic blood pressure 2022-09-17 19:28:58 166 mm[Hg] [facility] Diastolic blood pressure 2022-09-17 19:28:58 103 mm[Hg] [facility] Heart rate 2022-09-17 19:28:58 78 /min [facility] Body temperature 2022-09-17 19:28:58 37.06 [facility] Respiratory rate 2022-09-17 19:28:58 18 /min [facility] Oxygen saturation in Arterial blood by Pulse oximetry 2022-09-17 19:28:58 98 /min [facility] Body height 2022-09-17 16:43:00 160 cm [facility] Body weight 2022-09-17 16:43:00 51.71 kg [facility] BMI 2022-09-17 16:43:00 20.19 kg/m2 [facility] Systolic blood pressure 2022-04-03 19:20:00 106 mm[Hg] [facility] Diastolic blood pressure 2022-04-03 19:20:00 72 mm[Hg] [facility] Heart rate 2022-04-03 19:20:00 104 /min [facility] Body temperature 2022-04-03 19:20:00 36.22 [facility] Respiratory rate 2022-04-03 19:20:00 18 /min [facility] Body height 2022-04-03 19:20:00 162.6 cm [facility] Body weight 2022-04-03 19:20:00 46.72 kg [facility] BMI 2022-04-03 19:20:00 17.68 kg/m2 [facility] Oxygen saturation in Arterial blood by Pulse oximetry 2022-04-03 19:20:00 89 /min [facility] Systolic blood pressure 2021-07-18 20:42:00 174 mm[Hg] [facility] Diastolic blood pressure 2021-07-18 20:42:00 98 mm[Hg] [facility] Heart rate 2021-07-18 20:42:00 104 /min [facility] Body temperature 2021-07-18 20:42:00 35.72 [facility] Body height 2021-07-18 20:42:00 160 cm [facility] Body weight 2021-07-18 20:42:00 56.246 kg [facility] BMI 2021-07-18 20:42:00 21.97 kg/m2 [facility] BP Systolic 2024-04-09 09:13:00 130 mm[Hg] Step hen F You BP Diastolic 2024-04-09 09:13:00 81 mm[Hg] Samm phen F You Weight Measured 2024-04-09 09:13:00 122.40 pounds Delfino F You Height Measured 2024-04-09 09:13:00 63.00 inches Delfino F You Body Temperature 2024-04-09 09:13:00 97.60 degrees Delfino F You Heart Rate 2024-04-09 09:13:00 55.00 /min Araceli en F You Respiratory Rate 2024-04-09 09:13:00 18.00 /min Delfino F You BP Systolic 2024-04-08 15:17:00 157 mm[Hg] Step hen F You BP Diastolic 2024-04-08 15:17:00 80 mm[Hg] Samm phen F You Weight Measured 2024-04-08 15:17:00 127.80 pounds Delfino F You Height Measured 2024-04-08 15:17:00 63.00 inches Delfino F You Body Temperature 2024-04-08 15:17:00 97.30 degrees Delfino F You Heart Rate 2024-04-08 15:17:00 70.00 /min Araceli en F You Respiratory Rate 2024-04-08 15:17:00 15.00 /min Delfino F You BP Systolic 2024-03-09 09:06:00 144 mm[Hg] Step [...] 2023-07-24 11:22:00 82 mm[Hg] Samm phen F Yuo Weight Measured 2023-07-24 11:22:00 130.60 pounds Delfino [...] Measured 2023-03-01 13:43:00 63.00 inches Delfino F Yuo Body Temperature 2023-03-01 13:43:00 Delfino F You [...] You BP Diastolic 2022-10-04 11:32:00 77 mm[Hg] Asmm phen F You Weight Measured 2022-10-04 11:32:00 120.00 pounds Delfino Orta Height Measured 2022-10-04 11:32:00 63.00 inches Delfino Endy Orta Body Temperature 2022-10-04 11:32:00 98.40 degrees Delfino Endy Orta Heart Rate 2022-10-04 11:32:00 91.00 /min Araceli en F You Respiratory Rate 2022-10-04 11:32:00 19.00 /min Delfinosurinder Orta BP Systolic 2022-09-12 09:10:00 130 mm[Hg] Step hen F You BP Diastolic 2022-09-12 09:10:00 79 mm[Hg] Samm gonzales F You Weight Measured 2022-09-12 09:10:00 118.80 pounds Delfino Orta Height Measured 2022-09-12 09:10:00 63.00 inches [...] Date / Time Performed Performing Clinician Source REFERRAL- REQUEST/RESPONSE 2023-06-26 15:45:25 Doctor Unassigned, [place] [facility] BASIC METABOLIC PANEL (NA, K, CL, CO2, GLUCOSE, BUN, CREATININE, CA) 2023-05-20 08:28:00 Dawn Eddy [facility] CBC WITH DIFF 2023-05-20 08:28:00 Dawn Eddy [facility] TROPONIN I 2023-05-19 10:21:[facility] (NA, K, CL, CO2, GLUCOSE, BUN, CREATININE, CA) 2023-05-19 10:21:00 Dawn Eddy [facility] LIPID PANEL (53890)(TOTAL CHOLESTEROL, TRIGLYCERIDES, HDL) 2023-05-19 10:21:00 James Stacy [facility] CD4 SUBSET ASSAY 2023-05-19 10:21:00 Daniel Arreaga [facility] UREA NITROGEN URINE 2023-05-18 08:30:00 Lefty [facility] COMP. METABOLIC PANEL (67409) 2023-05-17 18:43:00 Ezra [facility] CBC WITH DIFF 2023-05-17 18:43:00 Ezra [facility] URINALYSIS MICROSCOPIC 2023-05-17 14:17:00 Essence Abreu [facility] SODIUM, URINE RANDOM 2023-05-17 14:16:00 Brady [facility] PROTEIN CREAT RATIO URINE RANDOM 2023-05-17 14:16:00 Brady [facility] TROPONIN I 2023-05-17 13:54:00 Lefty Abreu [facility] TRANSTHORACIC ECHO (TTE) COMPLETE 2023-05-17 12:45:00 Kvng Roberson [facility] CREATININE 2023-05-17 03:28:00 [facility] 2023-05-16 21:13:00 Kvng Roberson [facility] ACUTE CARE VENOUS BLOOD GAS 2023-05-16 18:21:00 Anyi Hearn [facility] XR CHEST 1 VW 2023-05-16 18:00:09 Anyi Hearn [facility] LIPASE 2023-05-16 17:40:00 Anyi Hearn [facility] TROPONIN I 2023-05-16 17:40:00 Anyi Hearn [facility] COMP. METABOLIC PANEL (67381) 2023-05-16 17:40:00 [facility]FF 2023-05-16 17:40:00 Anyi Hearn [facility] HB ECG ROUTINE & RHYTHM STRIP 2023-05-16 17:21:17 Anyi Hearn [facility] ASSIGNMENT OF BENEFITS 2023-03-20 17:45:01 Docto r Unassigned, [place] [facility] CONSENT/REFUSAL FOR DIAGNOSIS AND TREATMENT 2023-03-20 16:29:12 Doctor Unassigned, [place] [facility] XR SPINE THORACIC 2 VW 2022-09-17 18:21:00 Vannesa Hobbs [facility] CONSENT/REFUSAL FOR DIAGNOSIS AND TREATMENT 2022-09-17 16:35:17 Doctor Unassigned, [place] [facility] REFERRAL- REQUEST/RESPONSE 2022-06-05 05:01:00 Doctor Unassigned, [place] [facility] HSV 1&2, VZV NAAT 2022-04-03 20:43:[address] [facility] REFERRAL- REQUEST/RESPONSE 2022-01-19 06:01:00 Doctor Unassigned, [place] [facility] [address] Ecg Routine Ecg W/least 12 Lds W/i r 2016-10-23 00:00:00 Delfino Orta Plan of Care Planned Activity Planned Date Details Comments Source Goal Plan of Care Note [code = 83861-7] Goal Plan of Care Note [code = 10491-7] Goal Plan of Care Note [code = 98364-2] Goal Plan of Care Note [code = 79403-6] Goal Plan of Care Note [code = 32291-5] Goal Plan of Care Note [code = 66552-5] Goal Plan of Care Note [code = 75104-9] Goal Plan of Care Note [code = 98002-2] Goal Plan of Care Note [code = 33423-9] Goal Plan of Care Note [code = 95098-6] Goal Plan of Care Note [code = 69127-4] Goal Plan of Care Note [code = 10939-8] Goal Plan of Care Note [code = 14790-1] Goal Plan of Care Note [code = 98912-5] Goal Plan of Care Note [code = 10431-2] Goal Plan of Care Note [code = 56995-3] Goal Plan of Care Note [code = 12480-0] Goal Plan of Care Note [code = 60069-0] Goal Plan of Care Note [code = 30152-7] Goal Plan of Care Note [code = 25710-1] Goal Plan of Care Note [code = 06229-1] Goal Plan of Care Note [code = 07247-3] Goal Plan of Care Note [code = 31652-4] Goal Plan of Care Note [code = 25778-9] Goal Plan of Care Note [code = 76111-6] Goal Plan of Care Note [code = 84689-8] Goal Plan of Care Note [code = 67960-0] Goal Plan of Care Note [code = 24196-4] Goal Plan of Care Note [code = 83186-3] Goal Plan of Care Note [code = 41678-5] Goal Plan of Care Note [code = 34361-0] Goal Plan of Care Note [code = 43579-9] Goal Plan of Care Note [code = 53347-1] Goal Plan of Care Note [code = 43913-6] Goal Plan of Care Note [code = 92401-1] Goal Plan of Care Note [code = 26861-6] Goal Plan of Care Note [code = 48481-6] Goal Plan of Care Note [code = 83459-9] Goal Plan of Care Note [code = 96208-1] Goal Plan of Care Note [code = 12775-3] Goal Plan of Care Note [code = 88718-3] Goal Plan of Care Note [code = 46826-0] Goal Plan of Care Note [code = 16580-5] Goal Plan of Care Note [code = 43592-6] Goal Plan of Care Note [code = 56106-3] Goal Plan of Care Note [code = 32546-4] Goal Plan of Care Note [code = 58909-6] Goal Plan of Care Note [code = 30738-6] Goal Plan of Care Note [code = 48000-7] Goal Plan of Care Note [code = 45907-6] Goal Plan of Care Note [code = 78522-4] Goal Plan of Care Note [code = 92820-5] Goal Plan of Care Note [code = 48889-0] Goal Plan of Care Note [code = 95073-7] Goal Plan of Care Note [code = 13680-9] Goal Plan of Care Note [code = 00958-1] Goal Plan of Care Note [code = 47582-8] Goal Plan of Care Note [code = 46161-1] Goal Plan of Care Note [code = 09932-3] Goal Plan of Care Note [code = 00464-0] Goal Plan of Care Note [code = 91991-0] Goal Plan of Care Note [code = 36021-0] Goal Plan of Care Note [code = 05735-4] Goal Plan of Care Note [code = 77436-4] Goal Plan of Care Note [code = 41240-5] Goal Plan of Care Note [code = 95313-6] Goal Plan of Care Note [code = 60484-0] Goal Plan of Care Note [code = 77150-9] Goal Plan of Care Note [code = 22530-3] Goal Plan of Care Note [code = 29021-5] Goal Plan of Care Note [code = 49549-0] Goal Plan of Care Note [code = 01011-9] Goal Plan of Care Note [code = 75734-2] Goal Plan of Care Note [code = 91686-8] Goal Plan of Care Note [code = 73981-1] Goal Plan of Care Note [code = 95604-8] Goal Plan of Care Note [code = 16503-9] Goal Plan of Care Note [code = 27801-5] Goal Plan of Care Note [code = 33703-5] Goal Plan of Care Note [code = 51561-4] Goal Plan of Care Note [code = 19902-4] Goal Plan of Care Note [code = 02541-9] Goal Plan of Care Note [code = 65279-3] Goal Plan of Care Note [code = 25897-8] Goal Plan of Care Note [code = 59655-8] Goal Plan of Care Note [code = 07369-1] Goal Plan of Care Note [code = 81995-3] Goal Plan of Care Note [code = 27077-2] Goal Plan of Care Note [code = 55276-8] Goal Plan of Care Note [code = 12272-7] Goal Plan of Care Note [code = 01840-7] Goal Plan of Care Note [code = 64114-6] Goal Plan of Care Note [code = 01548-8] Goal Plan of Care Note [code = 65719-8] Goal Plan of Care Note [code = 62244-4] Goal Plan of Care Note [code = 06019-0] Goal Plan of Care Note [code = 62173-8] Goal Plan of Care Note [code = 00415-2] Goal Plan of Care Note [code = 32385-4] Goal Plan of Care Note [code = 54284-8] Goal Plan of Care Note [code = 76629-4] Goal Plan of Care Note [code = 20641-8] Goal Plan of Care Note [code = 01056-7] Goal Plan of Care Note [code = 41858-6] Goal Plan of Care Note [code = 47471-6] Goal Plan of Care Note [code = 12796-9] Goal Plan of Care Note [code = 09005-8] Goal Plan of Care Note [code = 79045-4] Goal Plan of Care Note [code = 04153-4] Goal Plan of Care Note [code = 70996-2] Goal Plan of Care Note [code = 55590-0] Goal Plan of Care Note [code = 25042-8] Goal Plan of Care Note [code = 32975-3] Goal Plan of Care Note [code = 06701-4] Goal Plan of Care Note [code = 15076-9] Goal Plan of Care Note [code = 12845-0] Goal Plan of Care Note [code = 80505-3] Goal Plan of Care Note [code = 99727-7] Goal Plan of Care Note [code = 03619-1] Goal Plan of Care Note [code = 15688-3] Goal Plan of Care Note [code = 58011-9] Goal Plan of Care Note [code = 63633-2] Goal Plan of Care Note [code = 81818-9] Goal Plan of Care Note [code = 32338-5] Goal Plan of Care Note [code = 63590-3] Goal Plan of Care Note [code = 69141-1] Goal Plan of Care Note [code = 19897-6] Goal Plan of Care Note [code = 06848-7] Goal Plan of Care Note [code = 34548-6] Goal Plan of Care Note [code = 74709-3] Goal Plan of Care Note [code = 77323-5] Goal Plan of Care Note [code = 09194-2] Goal Plan of Care Note [code = 68595-1] Goal Plan of Care Note [code = 20940-3] Goal Plan of Care Note [code = 35237-7] Goal Plan of Care Note [code = 30347-1] Goal Plan of Care Note [code = 13093-9] Goal Plan of Care Note [code = 43676-6] Goal Plan of Care Note [code = 25757-2] Goal Plan of Care Note [code = 45974-3] Goal Plan of Care Note [code = 80846-8] Goal Plan of Care Note [code = 16241-8] Goal Plan of Care Note [code = 43982-0] Goal Plan of Care Note [code = 18702-6] Goal Plan of Care Note [code = 97251-4] Goal Plan of Care Note [code = 74210-5] Goal Plan of Care Note [code = 19487-6] Goal Plan of Care Note [code = 13109-1] Goal Plan of Care Note [code = 95883-0] Goal Plan of Care Note [code = 14155-1] Goal Plan of Care Note [code = 27473-4] Goal Plan of Care Note [code = 40544-5] Goal Plan of Care Note [code = 93517-8] Goal Plan of Care Note [code = 16548-1] Goal Plan of Care Note [code = 02757-0] Goal Plan of Care Note [code = 33545-7] Goal Plan of Care Note [code = 97465-8] Goal Plan of Care Note [code = 59664-0] Goal Plan of Care Note [code = 58795-3] Goal Plan of Care Note [code = 40795-4] Goal Plan of Care Note [code = 81988-6] Goal Plan of Care Note [code = 49776-5] Goal Plan of Care Note [code = 79512-0] Goal Plan of Care Note [code = 74293-4] Goal Plan of Care Note [code = 70363-2] Goal Plan of Care Note [code = 93177-1] Goal Plan of Care Note [code = 41005-7] Goal Plan of Care Note [code = 62056-0] Goal Plan of Care Note [code = 95172-9] Goal Plan of Care Note [code = 33692-9] Goal Plan of Care Note [code = 01184-7] Goal Plan of Care Note [code = 27778-8] Goal Plan of Care Note [code = 70050-5] Goal Plan of Care Note [code = 20206-3] Encounters Start Date/Time End Date/Time Encounter Type Admission Type Attending [facility] Emergency Department Facility Care Department Encounter ID Source 2023-12-04 10:08:00 Outpatient Zaria Orellana [facility] [id number] [facility] 2023-11-11 14:53:00 [facility] [id number] [facility] 2023-03-29 10:18:01 [facility] [id number] [facility] 2023-03-28 14:01:00 Outpatient [facility] [id number] [facility] 2023-03-26 15:20:01 Outpatient Zaria Orellana [facility] [id number] [facility] 2024-04-09 09:05:03 2024-04-09 09:05:03 Outpatient [facility] [id number] Delfino Orta 2024-04-09 00:00:00 2024-04-09 00:00:00 Outpatient Visit [facility] [id number] Delfino Orta 2024-04-08 15:06:50 2024-04-08 15:06:50 Outpatient [facility] [id number] Delfino Orta 2024-04-08 00:00:00 2024-04-08 00:00:00 Outpatient Visit [facility] [id number] Delfino Orta 2023-06-26 00:00:00 2024-03-28 07:46:41 Orders Only Doctor Unassigned, [place] Doctor Unassigned, [place] [facility] 1.2.840.114 350.1.13.10 4.2.7.2.686 [id number] [facility] 2024-03-09 08:55:19 2024-03-09 08:55:19 Outpatient SFA [facility] [id number] Delfino Orta 2024-03-09 00:00:00 2024-03-09 00:00:00 Outpatient Visit [facility] [id number] Delfino Orta 2024-02-26 11:12:50 2024-02-26 11:12:50 Outpatient SFA [facility] [id number] Delfino Orta 2024-02-26 00:00:00 2024-02-26 00:00:00 Outpatient Visit [facility] [id number] Delfino Orta 2024-02-07 11:11:04 2024-02-07 11:11:04 Outpatient SFA [facility] [id number] Delfino Orta 2024-02-07 00:00:00 2024-02-07 00:00:00 Outpatient Visit [facility] [id number] Delfino Orta 2024-01-13 09:11:38 2024-01-13 09:11:38 Outpatient SFA [facility] [id number] Delfino Orta 2024-01-13 00:00:00 2024-01-13 00:00:00 Outpatient Visit [facility] [id number] Delfino Orta 2024-01-01 00:00:00 2024-01-01 00:00:00 Outpatient Visit [facility] [id number] acd-[id number] [id number] Delfino Orta 2023-11-28 00:00:00 2023-11-28 00:00:00 Outpatient Visit [facility] [id number] Delfino Orta 2023-11-20 09:01:17 2023-11-20 09:01:17 Outpatient SFA [facility] [id number] Delfino Orta 2023-11-19 10:28:43 2023-11-19 10:28:43 Outpatient SFA [facility] 1008 Delfino Orta 2023-11-19 00:00:00 2023-11-19 00:00:00 Outpatient Visit S[facility] [id number] Delfino Orta 2023-11-12 00:00:00 2023-11-12 00:00:00 (TEL) STLMLC [facility] [id number] [facility] 2023-11-11 00:00:00 2023-11-11 00:00:00 OFFICE VISIT NEW PT LEVEL 4 STLMLC STLMLC [id number] [facility] 2023-11-02 11:02:07 2023-11-02 11:02:07 Outpatient SFA [facility] [id number] Delfino Orta 2023-11-02 00:00:00 2023-11-02 00:00:00 Outpatient Visit SFA [id number] Delfino Orta 2023-10-09 14:12:37 2023-10-09 14:12:37 Outpatient SFA [facility] [id number] Delfino Orta 2023-10-09 00:00:00 2023-10-09 00:00:00 Outpatient Visit S[facility] [id number] Delfino Orta 2023-09-23 13:55:35 2023-09-23 13:55:35 Outpatient SFA S[facility] [id number] Delfino Orta 2023-09-23 00:00:00 2023-09-23 00:00:00 Outpatient Visit SFA [id number] Delfino Orta 2023-09-10 09:05:48 2023-09-10 09:05:48 Outpatient SFA [facility] [id number] Delfino Orta 2023-09-10 00:00:00 2023-09-10 00:00:00 Outpatient Visit SFA [id number] Delfino Orta 2023-08-28 13:07:55 2023-08-28 13:07:55 Outpatient SFA SFA [id number] Delfino Orta 2023-08-28 00:00:00 2023-08-28 00:00:00 Outpatient Visit SFA [id number] Delfino Orta 2023-08-22 00:00:00 2023-08-22 00:00:00 Outpatient Visit SFA [id number] Delfino Orta 2023-08-09 14:45:50 2023-08-09 14:45:50 Outpatient SFA [facility] [id number] Delfino Orta 2023-08-09 00:00:00 2023-08-09 00:00:00 Outpatient Visit SFA [id number] Delfino Orta 2023-07-24 11:05:48 2023-07-24 11:05:48 Outpatient SFA SFA [id number] Delfino Orta 2023-07-24 00:00:00 2023-07-24 00:00:00 Outpatient Visit SFA [id number]-[id number] Delfino Orta 2023-07-09 00:00:00 2023-07-09 00:00:00 Outpatient Visit SFA [id number] Delfino Orta 2023-07-02 00:00:00 2023-07-02 14:33:10 Letter (Out) [facility] 1..840.114 350.1.13.10 4.2.7.2.686 [id number] [facility] 2023-06-05 13:09:09 2023-06-05 13:09:09 Outpatient SFA [facility] [id number] Delfino Orta 2023-06-04 13:27:22 2023-06-04 13:27:22 Outpatient SFA [facility] [id number] Delfino Schumacher You 2023-06-04 00:00:00 2023-06-04 00:00:00 Outpatient Visit SFA [id number] Delfino Schumacher [place] 2023-05-21 00:00:00 2023-05-21 00:00:00 Transition of Care [facility] 1.2.840.114 350.1.13.10 4.2.7.2.686 [id number] [facility] 2023-05-16 12:13:00 2023-05-20 16:40:00 Inpatient X [facility] [id number] [facility] 2023-05-16 12:13:00 2023-05-20 16:40:00 Hospital Encounter Anyi Hearn David [facility] 1..840.114 350.1.13.10 4.2.7.2.686 [id number] [facility] 2023-05-09 13:59:33 2023-05-09 13:59:33 Outpatient SFA SFA [id number] Delfino Orta 2023-04-18 10:12:11 2023-04-18 10:12:11 Outpatient SFA [facility] [id number] Delfino Orta 2023-04-02 09:41:47 2023-04-02 09:41:47 Outpatient SFA [facility] [id number] Delfino Orta 2023-03-20 10:44:00 2023-03-20 12:35:00 Emergency X [facility] [id number] [facility] 2023-03-20 10:44:00 2023-03-20 12:35:00 Emergency Anyi Hearn [facility] 1.2.840.114 350.1.13.10 4.2.7.2.686 [id number] [facility] 2023-03-18 10:58:22 2023-03-18 10:58:22 Outpatient [facility] [id number] Delfino Schumacher You 2023-03-14 14:37:27 2023-03-14 14:37:27 Outpatient [place] [id number] Delfino Schumacher [place] 2023-03-07 13:58:45 2023-03-07 13:58:45 Outpatient [place] [id number] Delfino Schumacher [place] 2022-12-14 14:53:29 2022-12-14 14:53:29 Outpatient [facility] [id number] Delfino Schumacher [place] 2022-10-04 11:25:10 2022-10-04 11:25:10 Outpatient [place] [id number] Delfino Schumacher [place] 2022-09-17 11:44:00 2022-09-17 14:31:00 [facility] [id number] [facility] 2022-09-17 11:44:00 2022-09-17 14:31:00 Emergency Gaston Hobbs [facility] 1.2.840.114 350.1.13.10 4.2.7.2.686 [id number] [facility] 2022-09-12 09:01:58 2022-09-12 09:01:58 Outpatient [facility] [id number] Delfino Schumacher [place] 2022-09-11 00:00:00 2022-09-11 00:00:00 Case Management Kasandra Flores [facility] 1.114 350.1.13.10 4.2.7.2.686 [id number] [facility] 2022-08-07 09:45:03 2022-08-07 09:45:03 Outpatient [facility] [id number] Delfino Orta 2022-08-01 13:52:32 2022-08-01 13:52:32 Outpatient [place] [id number] Dlefino Orta 2022-07-18 09:30:00 2022-07-18 09:30:00 Outpatient R CLARIT[facility] JAM[facility] [id number] [facility] 2022-07-04 11:11:38 2022-07-04 11:11:38 Outpatient [facility] [id number] Delfino Orta 2022-06-05 00:00:00 2022-06-05 00:00:00 Orders Only Doctor Unassigned, [place] [facility] 1.114 350.1.13.10 4.2.7.2.686 [id number] [facility] 2022-05-29 09:31:33 2022-05-29 09:31:33 Outpatient [facility] [id number] Delfino Orta 2022-05-15 13:00:00 2022-05-15 13:00:[address] [facility] [id number] [facility] 2022-05-15 09:34:43 2022-05-15 09:34:43 Outpatient [facility] [id number] Delfino Orta 2022-04-19 15:25:24 2022-04-19 15:25:24 Outpatient [facility] [id number] Delfino Orta 2022-04-04 00:00:00 2022-04-04 00:00:00 Case Management Jeanine Almaguer [facility] 1..114 350.1.13.10 4.2.7.2.686 [id number] [facility] 2022-04-03 13:00:00 2022-04-03 14:00:00 [facility] ..840.114 350.1.13.10 4.2.7.2.686 [id number] [facility] 2022-04-03 13:00:00 2022-04-03 13:00:00 Outpatient R GUERO [facility]ART[facility] [id number] [facility] 2022-04-02 15:14:37 2022-04-02 15:14:37 Outpatient [facility] [id number] Delfino Orta 2022-03-28 13:26:46 2022-03-28 13:26:46 Outpatient [facility] [id number] Delfino Schumacher You 2022-02-28 11:43:30 2022-02-28 11:43:30 Outpatient [facility] [id number] Delfino Schumacher You 2022-02-28 00:00:00 2022-02-28 00:00:00 Outpatient Visit [id number] 2022-02-27 15:30:00 2022-02-27 15:30:[address] [facility] [id number] [facility] 2022-02-23 10:25:15 2022-02-23 10:25:15 Outpatient [facility] [id number] Delfino Schumacher [place] 2022-02-22 00:00:00 2022-02-22 00:00:00 Case Management Jeanine Almaguer [facility] ..840.114 350.1.13.10 4.2.7.2.686 [id number] [facility] 2022-01-29 00:00:00 2022-01-29 00:00:00 Case Management Osman Ware [facility] 1.2.840.114 350.1.13.10 4.2.7.2.686 [id number] [facility] 2022-01-19 13:56:18 2022-01-19 13:56:18 Outpatient [facility] [id number] Delfino Orta 2022-01-19 00:00:00 2022-01-19 00:00:00 Outpatient Visit [id number] 2022-01-19 00:00:00 2022-01-19 00:00:00 Orders Only Doctor Unassigned, [place] [facility] 1.2.840.114 350.1.13.10 4.2.7.2.686 [id number] [facility] 2021-11-15 00:00:00 2021-11-15 00:00:00 Case Management Kasandra Flores [facility] 1.840.114 350.1.13.10 4.2.7.2.686 [id number] [facility] 2021-11-06 00:00:00 2021-11-06 00:00:00 Outpatient Visit [id number] 2021-10-10 09:30:00 2021-10-10 09:30:[address] [facility] [id number] [facility] 2021-09-07 00:00:00 2021-09-07 00:00:00 Outpatient ELO BHARDWAJ [id number] Radha bentley [facility] 2021-08-25 03:29:00 2021-08-25 03:29:00 Outpatient Adams_R [facility] [id number] [facility] 2021-08-07 00:00:00 2021-08-07 00:00:00 Outpatient Visit [id number] 2021-07-18 15:15:00 2021-07-18 16:23:57 Outpatient R [facility] [id number] [facility] 2021-07-18 15:15:00 2021-07-18 16:23:57 Office Visit Pgy2 Apolinar Weber [facility] 1..840.114 350.1.13.10 4.2.7.2.686 [id number] [facility] 2021-07-18 15:15:00 2021-07-18 16:23:57 Outpatient R [address] [facility] [id number] [facility] 2021-06-27 00:00:00 2021-06-27 00:00:00 Telephone Enedina Mccarty [facility] ..840.114 350.1.13.10 4.2.7.2.686 [id number] [facility] 2021-06-15 00:00:00 2021-06-15 00:00:00 Transition of Care Lj Paredes ..840.114 350.1.13.10 4.2.7.2.686 [id number] [facility] 2021-06-09 10:48:00 2021-06-14 17:22:00 Inpatient BILL[facility] HAWKINS [facility] [id number] [facility] 2021-06-09 10:48:00 2021-06-14 17:22:00 Hospital Encounter Toby Donohue, Billy Cherry [facility] 1.2.840.114 350.1.13.10 4.2.7.2.686 [id number] [facility] 2021-06-12 00:00:00 2021-06-12 00:00:00 Case Management Evette Dunn [facility] 1.2.840.114 350.1.13.10 4.2.7.2.686 [id number] [facility] 2021-06-08 10:46:00 2021-06-08 16:28:00 Emergency X [facility] E[facility] [id number] [facility] 2021-06-08 10:46:00 2021-06-08 16:28:00 Emergency Kennedi Blue [facility] 1.2.840.114 350.1.13.10 4.2.7.2.686 [id number] [facility] 2021-05-24 00:00:00 2021-05-24 00:00:00 Letter (Out) Mikael Quiroz [facility] 1.2.840.114 350.1.13.10 4.2.7.2.686 [id number] [facility] 2021-05-23 00:00:00 2021-05-23 00:00:00 Orders Only Doctor Unassigned, [place] [facility] 1.2.840.114 350.1.13.10 4.2.7.2.686 [id number] [facility] 2021-05-16 09:00:00 2021-05-16 09:00:00 Outpatient Av RICHARDSON [id number] [facility] 2021-05-01 11:30:00 2021-05-01 12:47:00 Emergency X LJ [facility] ERT [id number] [facility] 2021-05-01 11:30:00 2021-05-01 12:47:00 Emergency Lj Liang [facility] 1.2.840.114 350.1.13.10 4.2.7.2.686 [id number] [facility] 2020-10-04 11:44:00 2020-10-04 12:54:00 Emergency X [facility]ARET [facility] ERT [id number] [facility] 2020-10-04 11:44:00 2020-10-04 12:54:00 Emergency Margaret Nunez [facility] 1.2.840.114 350.1.13.10 4.2.7.2.686 [id number] [facility] 2020-09-29 00:00:00 2020-09-29 00:00:00 Telephone Bonny Morris [facility] Profess[facility] 1.2.840.114 350.1.13.10 4.2.7.2.686 [id number] [facility] 2020-09-22 14:30:00 2020-09-22 14:30:00 Outpatient R [facility]NY [facility] [id number] [facility] 2020-08-25 11:32:00 2020-08-25 11:32:[address] Adams_R [facility] [id number] [facility] 2020-08-25 09:28:00 2020-08-25 10:21:00 Emergency Margaret Nunez [facility] 1.2.840.114 350.1.13.10 4.2.7.2.686 [id number] [facility] 2020-08-25 09:28:00 2020-08-25 10:21:00 Emergency [facility]ET [facility] ERT [id number] [facility] 2020-08-24 14:43:00 2020-08-24 15:59:00 Emergency Earl, K Suzette [facility] 1.2840.114 350.1.13.10 4.2.7.2.686 [id number] [facility] 2020-08-24 14:43:00 2020-08-24 15:59:00 Emergency X [facility] ERT [id number] [facility] 2020-08-24 00:00:00 2020-08-24 00:00:00 Telephone Morris, Sendil [facility] Profess[facility] nal [facility] 1.2840.114 350.1.13.10 4.2.7.2.686 [id number] [facility] 2020-08-12 15:00:00 2020-08-12 15:00:00 Outpatient R [facility] [id number] [facility] 2020-08-12 00:00:00 2020-08-12 00:00:00 Telephone Morris, Sendil [facility] 1.2840.114 350.1.13.10 4.2.7.2.686 [id number] [facility] 2020-08-04 01:58:00 2020-08-04 01:58:00 Outpatient Dean_Robert [facility] [id number] [facility] 2020-07-28 00:00:00 2020-07-28 00:00:00 Telephone Christophe, Sendil [facility] 1.2840.114 350.1.13.10 4.2.7.2.686 [id number] [facility] 2020-07-28 00:00:00 2020-07-28 00:00:00 Orders Only Doctor Unassigned, [place] [facility] 1.20.114 350.1.13.10 4.2.7.2.686 [id number] [facility] 2020-07-27 00:00:00 2020-07-27 00:00:00 Telephone Bonny Morris TerriAgMarshaAg [facility] 1.2.840.114 350.1.13.10 4.2.7.2.686 [id number] [facility] 2020-07-27 00:00:00 2020-07-27 00:00:00 Telephone Bonny Morris TerriAgMarshaAg [facility] 1.2.840.114 350.1.13.10 4.2.7.2.686 [id number] [facility] 2020-07-26 14:25:36 2020-07-26 15:12:16 Office Visit Bonny MorrisMarshaAg [facility] 1.2.840.114 350.1.13.10 4.2.7.2.686 [id number] [facility] 2020-07-26 14:30:00 2020-07-26 14:30:00 Outpatient R [facility] [id number] [facility] 2020-07-20 10:25:00 2020-07-20 15:52:00 Emergency Dawn Blanco S [facility] 1.2.840.114 350.1.13.10 4.2.7.2.686 [id number] [facility] 2020-07-20 10:16:00 2020-07-20 10:16:00 Emergency X [facility] ERT [id number] [facility] 2020-07-18 01:42:00 2020-07-18 01:42:00 [place] [id number] [facility] 2020-07-01 13:47:00 2020-07-01 16:34:00 Emergency Ibikunle, Folusho F [facility] 1.2.840.114 350.1.13.10 4.2.7.2.686 [id number] [facility] 2020-07-01 13:47:00 2020-07-01 16:34:00 [facility] E[facility] [id number] [facility] 2020-07-01 13:47:00 2020-07-01 16:34:00 Emergency Josse Lockhart [facility] 1.2.840.114 350.1.13.10 4.2.7.2.686 [id number] Results Test Description Test Time Test Comments Results Result Co mments Source LIPID [id number] 06:36:53* Test Item Value Reference Range Interpretation [...] SPECIMENS. FOR MOREINFORMATION, SEE CLIENT ANNOUNCEMENT AT [email or web address] RISK RATIO LDL/HDL (test code = 2238) 0.66 RATIO <3.22 HEMOGLOBIN [id number] 04:59:33* Test Item Value Reference Range Interpretation Comme nts HEMOGLOBIN A1c (test code = 33021) 5.9 % 4.2-5.6 H [employer] GUIDELINES FOR HGB A1C: [...] TESTING PERFORMED AT [facility] [address] [place] [address]398 POWER TRANSMISSION ENGINEER: ABBI SHORT M.D. CLIA NUMBER [id number] [facility] [place]. [id number] CBC W/AUTO DIFF WITH [id number] 03:30:09* Test Item Value Reference Range Interpretation [...] 0.00-0.10 ABS NUCLEATED RBCS (test code = 50499) 0.00 K/UL 0.00-0.11 COMPREHENSIVE METABOLIC [id number] 00:00:00* Test Item Value Reference Range Interpretation Comme nts GLUCOSE (test code = 2217) 87 MG/DL BUN (test code = 2208) 19 MG/DL CREATININE (test code = 2214) 1.49 MG/DL eGFR (2020 CKD-EPI) (test co de = 63021) 40 ML/MIN/1.73 CALC BUN/CREAT (test code = [...] (test code = 2219) 25 U/L [facility] [id number] 00:00:00* Test Item Value Reference Range Interpretation [...] ABS NUCLEATED RBCS (test cod e = 95076) 0.00 K/UL Delfino OrtaLIPID [id number] 00:00:00* Test Item Value Reference Range Interpretation Comme nts CHOLESTEROL (test code = 2210) 196 MG/DL TRIGLYCERIDES (test code = 2232) 66 MG/DL HDL CHOLESTEROL (test code = 2220) 109 MG/DL CALC LDL CHOL (test code = 2237) 72 MG/DL RISK RATIO LDL/HDL (test cod e = 2238) 0.66 RATIO Delfino OrtaHEMOGLOBIN [id number] 00:00:00* Test Item Value Reference Range Interpretation Comme nts HEMOGLOBIN A1c (test code = 46023) 5.9 % Delfino OrtaCOMPREHENSIVE METABOLIC [id number] 00:00:00* Test Item Value Reference Range Interpretation Comme nts GLUCOSE (test code = 2217) 87 MG/DL BUN (test code = 2208) 19 MG/DL CREATININE (test code = 2214) 1.49 MG/DL eGFR (2020 CKD-EPI) (test co de = 53168) 40 ML/MIN/1.73 CALC BUN/CREAT (test code = [...] = 2219) 25 U/L Delfino OrtaCBC W/AUTO [id number] 00:00:00* Test Item Value Reference Range Interpretation [...] ABS NUCLEATED RBCS (test cod e = 76692) 0.00 K/UL Delfino OrtaLIPID [id number] 00:00:00* Test Item Value Reference Range Interpretation Comme nts CHOLESTEROL (test code = 2210) 196 MG/DL TRIGLYCERIDES (test code = 2232) 66 MG/DL HDL CHOLESTEROL (test code = 2220) 109 MG/DL CALC LDL CHOL (test code = 2237) 72 MG/DL RISK RATIO LDL/HDL (test cod e = 2238) 0.66 RATIO Delfino OrtaHEMOGLOBIN [id number] 00:00:00* Test Item Value Reference Range Interpretation Comme nts HEMOGLOBIN A1c (test code = 38672) 5.9 % Delfino OrtaCOMPREHENSIVE METABOLIC [id number] 00:00:00* Test Item Value Reference Range Interpretation Comme nts GLUCOSE (test code = 2217) 87 MG/DL BUN (test code = 2208) 19 MG/DL CREATININE (test code = 2214) 1.49 MG/DL eGFR (2020 CKD-EPI) (test co de = 65815) 40 ML/MIN/1.73 CALC BUN/CREAT (test code = [...] = 2219) 25 U/L Delfino OrtaCBC W/AUTO [id number] 00:00:00* Test Item Value Reference Range Interpretation [...] ABS NUCLEATED RBCS (test cod e = 45854) 0.00 K/UL Delfino OrtaLIPID [id number] 00:00:00* Test Item Value Reference Range Interpretation Comme nts CHOLESTEROL (test code = 2210) 196 MG/DL TRIGLYCERIDES (test code = 2232) 66 MG/DL HDL CHOLESTEROL (test code = 2220) 109 MG/DL CALC LDL CHOL (test code = 2237) 72 MG/DL RISK RATIO LDL/HDL (test cod e = 2238) 0.66 RATIO Delfino OrtaHEMOGLOBIN [id number] 00:00:00* Test Item Value Reference Range Interpretation Comme nts HEMOGLOBIN A1c (test code = 46733) 5.9 % Delfino OrtaCOMPREHENSIVE METABOLIC [id number] 00:00:00* Test Item Value Reference Range Interpretation Comme nts GLUCOSE (test code = 2217) 87 MG/DL BUN (test code = 2208) 19 MG/DL CREATININE (test code = 2214) 1.49 MG/DL eGFR (2020 CKD-EPI) (test co de = 41524) 40 ML/MIN/1.73 CALC BUN/CREAT (test code = [...] code = 2219) 25 U/L Delfino Schumacher [facility] W/AUTO [id number] 00:00:00* Test Item Value Reference Range Interpretation [...] ABS NUCLEATED RBCS (test cod e = 38162) 0.00 K/UL Delfino OrtaLIPID [id number] 00:00:00* Test Item Value Reference Range Interpretation Comme nts CHOLESTEROL (test code = 2210) 196 MG/DL TRIGLYCERIDES (test code = 2232) 66 MG/DL HDL CHOLESTEROL (test code = 2220) 109 MG/DL CALC LDL CHOL (test code = 2237) 72 MG/DL RISK RATIO LDL/HDL (test cod e = 2238) 0.66 RATIO Delfino OrtaHEMOGLOBIN [id number] 00:00:00* Test Item Value Reference Range Interpretation Comme nts HEMOGLOBIN A1c (test code = 55116) 5.9 % Delfino OrtaCOMPREHENSIVE METABOLIC [id number] 00:00:00* Test Item Value Reference Range Interpretation Comme nts GLUCOSE (test code = 2217) 87 MG/DL BUN (test code = 2208) 19 MG/DL CREATININE (test code = 2214) 1.49 MG/DL eGFR (2020 CKD-EPI) (test co de = 47955) 40 ML/MIN/1.73 CALC BUN/CREAT (test code = [...] = 2219) 25 U/L Delfino OrtaCBC W/AUTO [id number] 00:00:00* Test Item Value Reference Range Interpretation [...] ABS NUCLEATED RBCS (test cod e = 67648) 0.00 K/UL Delfino OrtaLIPID [id number] 00:00:00* Test Item Value Reference Range Interpretation Comme nts CHOLESTEROL (test code = 2210) 196 MG/DL TRIGLYCERIDES (test code = 2232) 66 MG/DL HDL CHOLESTEROL (test code = 2220) 109 MG/DL CALC LDL CHOL (test code = 2237) 72 MG/DL RISK RATIO LDL/HDL (test cod e = 2238) 0.66 RATIO Delfino OrtaHEMOGLOBIN [id number] 00:00:00* Test Item Value Reference Range Interpretation Comme nts HEMOGLOBIN A1c (test code = 83987) 5.9 % Delfino OrtaCOMPREHENSIVE METABOLIC [id number] 00:00:00* Test Item Value Reference Range Interpretation Comme nts GLUCOSE (test code = 2217) 87 MG/DL BUN (test code = 2208) 19 MG/DL CREATININE (test code = 2214) 1.49 MG/DL eGFR (2020 CKD-EPI) (test co de = 78868) 40 ML/MIN/1.73 CALC BUN/CREAT (test code = [...] code = 2219) 25 U/L Delfino Schumacher [facility] W/AUTO [id number] 00:00:00* Test Item Value Reference Range Interpretation [...] ABS NUCLEATED RBCS (test cod e = 32096) 0.00 K/UL Delfino OrtaLIPID [id number] 00:00:00* Test Item Value Reference Range Interpretation Comme nts CHOLESTEROL (test code = 2210) 196 MG/DL TRIGLYCERIDES (test code = 2232) 66 MG/DL HDL CHOLESTEROL (test code = 2220) 109 MG/DL CALC LDL CHOL (test code = 2237) 72 MG/DL RISK RATIO LDL/HDL (test cod e = 2238) 0.66 RATIO Delfino OrtaHEMOGLOBIN [id number] 00:00:00* Test Item Value Reference Range Interpretation Comme carlito HEMOGLOBIN A1c (test code = 83038) 5.9 % Delfino OrtaHIV-1 QUANT, [id number] 11:19:24* Test Item Value Reference Range Interpretation Comme carlito HIV-1 VIRAL COPY (test code = 4141) TEST NOT PERFORMED COPIES/ML Unable to perform testing, specimen not received.Charges adjusted as applicable. HIV-1 VIRAL LOG (test code = 03680) TEST NOT PERFORMED LOG COPIES/ML Range of quantitatio n is 20-10,000,000 Copies/mL, (1.301-7.000log Copies/mL). Samples with HIV RNA detected below the limit ofquantitation are reported as <20 Copies/mL. Assay methodology ispolymerase chain reaction (PCR) using the [employer] Jose 6800/8800system. The expected result is NOT DETECTED. For diagnostic use,please refer to laboratory test compendium. HIV-1 QUANT, [id number] 00:00:00* Test Item Value Reference Range Interpretation Comme carlito HIV-1 VIRAL COPY (test code = 4141) TEST NOT PERFORMED COPIES/ML HIV-1 VIRAL LOG (test code = 54486) TEST NOT PERFORMED LOGCOPIES/ML Delfino OrtaHIV-1 QUANT, [id number] 00:00:00* Test Item Value Reference Range Interpretation Comme nts HIV-1 VIRAL COPY (test code = 4141) TEST NOT PERFORMED COPIES/ML HIV-1 VIRAL LOG (test code = 60068) TEST NOT PERFORMED LOGCOPIES/ML Delfino F AustinHIV-1 QUANT, [id number] 00:00:00* Test Item Value Reference Range Interpretation Comme nts HIV-1 VIRAL COPY (test code = 4141) TEST NOT PERFORMED COPIES/ML HIV-1 VIRAL LOG (test code = 39500) TEST NOT PERFORMED LOGCOPIES/ML Delfino F AustinHIV-1 QUANT, [id number] 00:00:00* Test Item Value Reference Range Interpretation Comme nts HIV-1 VIRAL COPY (test code = 4141) TEST NOT PERFORMED COPIES/ML HIV-1 VIRAL LOG (test code = 83532) TEST NOT PERFORMED LOGCOPIES/ML Delfino F AustinHIV-1 QUANT, [id number] 00:00:00* Test Item Value Reference Range Interpretation Comme nts HIV-1 VIRAL COPY (test code = 4141) TEST NOT PERFORMED COPIES/ML HIV-1 VIRAL LOG (test code = 20706) TEST NOT PERFORMED LOGCOPIES/ML Delfino F AustinHIV-1 QUANT, [id number] 00:00:00* Test Item Value Reference Range Interpretation Comme nts HIV-1 VIRAL COPY (test code = 4141) TEST NOT PERFORMED COPIES/ML HIV-1 VIRAL LOG (test code = 76207) TEST NOT PERFORMED LOGCOPIES/ML Delfino F AustinHIV-1 QUANT, [id number] 00:00:00* Test Item Value Reference Range Interpretation Comme nts HIV-1 VIRAL COPY (test code = 4141) TEST NOT PERFORMED COPIES/ML HIV-1 VIRAL LOG (test code = 34194) TEST NOT PERFORMED LOGCOPIES/ML Delfino F AustinHIV-1 QUANT, [id number] 00:00:00* Test Item Value Reference Range Interpretation Comme nts HIV-1 VIRAL COPY (test code = 4141) TEST NOT PERFORMED COPIES/ML HIV-1 VIRAL LOG (test code = 39673) TEST NOT PERFORMED LOGCOPIES/ML Delfino F AustinCD4/CD8 LYMPHOCYTE [id number] 15:06:04* Test Item Value Reference Range Interpretation Comme nts ABSOLUTE LYMPHOCYTES (test code = 85958) 1180 PER UL 9910-9790 PERCENT CD4 (test code = 80088) 20.9 % 34.0-65.0 L ABSOLUTE CD4 (test code = 29562) 247 PER UL 520-1470 L PERCENT CD8 (test code = 24002) 56.8 % 13.0-38.0 H ABSOLUTE CD8 (test code = 11458) 670 PER UL 205-920 CD4/CD8 RATIO (test code = 28856) 0.37 0.92-3.41 L UNLESS OTHERWISE INDICATED, ALL TESTING PERFORMED AT [facility] [address] [place] [address] POWER TRANSMISSION ENGINEER: ABBI SHORT M.D. CLIA NUMBER [id number] [facility] [place]. [id number] CD4/CD8 LYMPHOCYTE [id number] 00:00:00* Test Item Value Reference Range Interpretation Comme nts ABSOLUTE LYMPHOCYTES (test c ode = 93521) 1180 PERUL PERCENT CD4 (test code = 54497) 20.9 % ABSOLUTE CD4 (test code = 18220) 247 PERUL PERCENT CD8 (test code = 69467) 56.8 % ABSOLUTE CD8 (test code = 03198) 670 PERUL CD4/CD8 RATIO (test code = 80140) 0.37 Delfino Schumacher AustinCD4/CD8 LYMPHOCYTE [id number] 00:00:00* Test Item Value Reference Range Interpretation Comme nts ABSOLUTE LYMPHOCYTES (test c ode = 68216) 1180 PERUL PERCENT CD4 (test code = 88421) 20.9 % ABSOLUTE CD4 (test code = 26186) 247 PERUL PERCENT CD8 (test code = 83401) 56.8 % ABSOLUTE CD8 (test code = 65869) 670 PERUL CD4/CD8 RATIO (test code = 90622) 0.37 Delfino F AustinCD4/CD8 LYMPHOCYTE [id number] 00:00:00* Test Item Value Reference Range Interpretation Comme nts ABSOLUTE LYMPHOCYTES (test c ode = 81212) 1180 PERUL PERCENT CD4 (test code = 56195) 20.9 % ABSOLUTE CD4 (test code = 71006) 247 PERUL PERCENT CD8 (test code = 33727) 56.8 % ABSOLUTE CD8 (test code = 76946) 670 PERUL CD4/CD8 RATIO (test code = 17658) 0.37 Delfino Schumacher AustinCD4/CD8 LYMPHOCYTE [id number] 00:00:00* Test Item Value Reference Range Interpretation Comme nts ABSOLUTE LYMPHOCYTES (test c ode = 13894) 1180 PERUL PERCENT CD4 (test code = 15744) 20.9 % ABSOLUTE CD4 (test code = 82852) 247 PERUL PERCENT CD8 (test code = 78995) 56.8 % ABSOLUTE CD8 (test code = 90283) 670 PERUL CD4/CD8 RATIO (test code = 45855) 0.37 Delfino Schumacher AustinCD4/CD8 LYMPHOCYTE [id number] 00:00:00* Test Item Value Reference Range Interpretation Comme nts ABSOLUTE LYMPHOCYTES (test c ode = 19092) 1180 PERUL PERCENT CD4 (test code = 02456) 20.9 % ABSOLUTE CD4 (test code = 89413) 247 PERUL PERCENT CD8 (test code = 59381) 56.8 % ABSOLUTE CD8 (test code = 63537) 670 PERUL CD4/CD8 RATIO (test code = 98318) 0.37 Delfino Schumacher AustinCD4/CD8 LYMPHOCYTE [id number] 00:00:00* Test Item Value Reference Range Interpretation Comme nts ABSOLUTE LYMPHOCYTES (test c ode = 83298) 1180 PERUL PERCENT CD4 (test code = 74429) 20.9 % ABSOLUTE CD4 (test code = 95265) 247 PERUL PERCENT CD8 (test code = 21627) 56.8 % ABSOLUTE CD8 (test code = 31990) 670 PERUL CD4/CD8 RATIO (test code = 83134) 0.37 Delfino Schumacher AustinCD4/CD8 LYMPHOCYTE [id number] 00:00:00* Test Item Value Reference Range Interpretation Comme nts ABSOLUTE LYMPHOCYTES (test c ode = 57636) 1180 PERUL PERCENT CD4 (test code = 20859) 20.9 % ABSOLUTE CD4 (test code = 15061) 247 PERUL PERCENT CD8 (test code = 13841) 56.8 % ABSOLUTE CD8 (test code = 79430) 670 PERUL CD4/CD8 RATIO (test code = 01554) 0.37 Delfino Schumacher AustinCD4/CD8 LYMPHOCYTE [id number] 00:00:00* Test Item Value Reference Range Interpretation Comme nts ABSOLUTE LYMPHOCYTES (test c ode = 93986) 1180 PERUL PERCENT CD4 (test code = 99487) 20.9 % ABSOLUTE CD4 (test code = 56084) 247 PERUL PERCENT CD8 (test code = 21973) 56.8 % ABSOLUTE CD8 (test code = 92327) 670 PERUL CD4/CD8 RATIO (test code = 69335) 0.37 Delfino Schumacher YouCOMPREHENSIVE METABOLIC [id number] 00:00:00* Test Item Value Reference Range Interpretation Comme nts GLUCOSE (test code = 2217) 83 MG/DL BUN (test code = 2208) 24 MG/DL CREATININE (test code = 2214) 1.32 MG/DL eGFR (2020 CKD-EPI) (test co de = 26197) 46 ML/MIN/1.73 CALC BUN/CREAT (test code = [...] 2219) 13 U/L Delfino Schumacher YouCD4/CD8 LYMPHOCYTE [id number] 00:00:00* Test Item Value Reference Range Interpretation Comme nts ABSOLUTE LYMPHOCYTES (test c ode = 67176) 877 PERUL PERCENT CD4 (test code = 31692) 22.4 % ABSOLUTE CD4 (test code = 08741) 196 PERUL PERCENT CD8 (test code = 15705) 58.8 % ABSOLUTE CD8 (test code = 47772) 515 PERUL CD4/CD8 RATIO (test code = 72094) 0.38 Delfino OrtaHIV-1 QUANT, [id number] 00:00:00* Test Item Value Reference Range Interpretation Comme nts HIV-1 VIRAL COPY (test code = 4141) 619 COPIES/ML HIV-1 VIRAL LOG (test code = 76598) 2.792 LOGCOPIES/ML Delfino OrtaHEMOGLOBIN A1c [ADDED]2023-09-11 00:00:00* Test Item Value Reference Range Interpretation Comme nts HEMOGLOBIN A1c (test code = 13109) 5.6 % Delfino OrtaCBC W/AUTO [id number] 00:00:00* Test Item Value Reference Range Interpretation [...] ABS NUCLEATED RBCS (test cod e = 43676) 0.00 K/UL Delfino OrtaCOMPREHENSIVE METABOLIC [id number] 00:00:00* Test Item Value Reference Range Interpretation Comme nts GLUCOSE (test code = 2217) 83 MG/DL BUN (test code = 2208) 24 MG/DL CREATININE (test code = 2214) 1.32 MG/DL eGFR (2020 CKD-EPI) (test co de = 17848) 46 ML/MIN/1.73 CALC BUN/CREAT (test code = [...] = 2219) 13 U/L Delfino OrtaCD4/CD8 LYMPHOCYTE [id number] 00:00:00* Test Item Value Reference Range Interpretation Comme [facility] ABSOLUTE LYMPHOCYTES (test c ode = 75488) 877 PERUL PERCENT CD4 (test code = 53027) 22.4 % ABSOLUTE CD4 (test code = 30596) 196 PERUL PERCENT CD8 (test code = 74916) 58.8 % ABSOLUTE CD8 (test code = 07030) 515 PERUL CD4/CD8 RATIO (test code = 23004) 0.38 Delfino OrtaHIV-1 QUANT, [id number] 00:00:00* Test Item Value Reference Range Interpretation Comme [facility] HIV-1 VIRAL COPY (test code = 4141) 619 COPIES/ML HIV-1 VIRAL LOG (test code = 64874) 2.792 LOGCOPIES/ML Delfino OrtaHEMOGLOBIN A1c [ADDED]2023-09-11 00:00:00* Test Item Value Reference Range Interpretation Comme [facility] HEMOGLOBIN A1c (test code = 20204) 5.6 % Delfino OrtaCBC W/AUTO [id number] 00:00:00* Test Item Value Reference Range Interpretation [...] ABS NUCLEATED RBCS (test cod e = 86355) 0.00 K/UL Delfino Endy AustinCOMPREHENSIVE METABOLIC [id number] 00:00:00* Test Item Value Reference Range Interpretation Comme nts GLUCOSE (test code = 2217) 83 MG/DL BUN (test code = 2208) 24 MG/DL CREATININE (test code = 2214) 1.32 MG/DL eGFR (2020 CKD-EPI) (test co de = 22479) 46 ML/MIN/1.73 CALC BUN/CREAT (test code = [...] = 2219) 13 U/L Delfino OrtaCD4/CD8 LYMPHOCYTE [id number] 00:00:00* Test Item Value Reference Range Interpretation Comme nts ABSOLUTE LYMPHOCYTES (test c ode = 30352) 877 PERUL PERCENT CD4 (test code = 85303) 22.4 % ABSOLUTE CD4 (test code = 61501) 196 PERUL PERCENT CD8 (test code = 58529) 58.8 % ABSOLUTE CD8 (test code = 72431) 515 PERUL CD4/CD8 RATIO (test code = 92600) 0.38 Delfino OrtaHIV-1 QUANT, [id number] 00:00:00* Test Item Value Reference Range Interpretation Comme [facility] HIV-1 VIRAL COPY (test code = 4141) 619 COPIES/ML HIV-1 VIRAL LOG (test code = 86445) 2.792 LOGCOPIES/ML Delfino OrtaHEMOGLOBIN A1c [ADDED]2023-09-11 00:00:00* Test Item Value Reference Range Interpretation Comme [facility] HEMOGLOBIN A1c (test code = 10643) 5.6 % Delfino OrtaCBC W/AUTO [id number] 00:00:00* Test Item Value Reference Range Interpretation [...] ABS NUCLEATED RBCS (test cod e = 86230) 0.00 K/UL Delfino OrtaCOMPREHENSIVE METABOLIC [id number] 00:00:00* Test Item Value Reference Range Interpretation Comme nts GLUCOSE (test code = 2217) 83 MG/DL BUN (test code = 2208) 24 MG/DL CREATININE (test code = 2214) 1.32 MG/DL eGFR (2020 CKD-EPI) (test co de = 83838) 46 ML/MIN/1.73 CALC BUN/CREAT (test code = [...] = 2219) 13 U/L Delfino OrtaCD4/CD8 LYMPHOCYTE [id number] 00:00:00* Test Item Value Reference Range Interpretation Comme nts ABSOLUTE LYMPHOCYTES (test c ode = 47541) 877 PERUL PERCENT CD4 (test code = 66930) 22.4 % ABSOLUTE CD4 (test code = 96584) 196 PERUL PERCENT CD8 (test code = 74917) 58.8 % ABSOLUTE CD8 (test code = 96500) 515 PERUL CD4/CD8 RATIO (test code = 14121) 0.38 Delfino OrtaHIV-1 QUANT, [id number] 00:00:00* Test Item Value Reference Range Interpretation Comme nts HIV-1 VIRAL COPY (test code = 4141) 619 COPIES/ML HIV-1 VIRAL LOG (test code = 17700) 2.792 LOGCOPIES/ML Delfino OrtaHEMOGLOBIN A1c [ADDED]2023-09-11 00:00:00* Test Item Value Reference Range Interpretation Comme nts HEMOGLOBIN A1c (test code = 61815) 5.6 % Delfino OrtaCBC W/AUTO [id number] 00:00:00* Test Item Value Reference Range Interpretation [...] ABS NUCLEATED RBCS (test cod e = 01447) 0.00 K/UL Delfino OrtaCOMPREHENSIVE METABOLIC [id number] 00:00:00* Test Item Value Reference Range Interpretation Comme nts GLUCOSE (test code = 2217) 83 MG/DL BUN (test code = 2208) 24 MG/DL CREATININE (test code = 2214) 1.32 MG/DL eGFR (2020 CKD-EPI) (test co de = 38252) 46 ML/MIN/1.73 CALC BUN/CREAT (test code = [...] = 2219) 13 U/L Delfino OrtaCD4/CD8 LYMPHOCYTE [id number] 00:00:00* Test Item Value Reference Range Interpretation Comme nts ABSOLUTE LYMPHOCYTES (test c ode = 74338) 877 PERUL PERCENT CD4 (test code = 71743) 22.4 % ABSOLUTE CD4 (test code = 99686) 196 PERUL PERCENT CD8 (test code = 68656) 58.8 % ABSOLUTE CD8 (test code = 39098) 515 PERUL CD4/CD8 RATIO (test code = 57265) 0.38 Delfino OrtaHIV-1 QUANT, [id number] 00:00:00* Test Item Value Reference Range Interpretation Comme nts HIV-1 VIRAL COPY (test code = 4141) 619 COPIES/ML HIV-1 VIRAL LOG (test code = 75857) 2.792 LOGCOPIES/ML Delfino OrtaHEMOGLOBIN A1c [ADDED]2023-09-11 00:00:00* Test Item Value Reference Range Interpretation Comme nts HEMOGLOBIN A1c (test code = 51442) 5.6 % Delfino OrtaCBC W/AUTO [id number] 00:00:00* Test Item Value Reference Range Interpretation [...] ABS NUCLEATED RBCS (test cod e = 32257) 0.00 K/UL Delfino OrtaCOMPREHENSIVE METABOLIC [id number] 00:00:00* Test Item Value Reference Range Interpretation Comme nts GLUCOSE (test code = 2217) 83 MG/DL BUN (test code = 2208) 24 MG/DL CREATININE (test code = 2214) 1.32 MG/DL eGFR (2020 CKD-EPI) (test co de = 45790) 46 ML/MIN/1.73 CALC BUN/CREAT (test code = [...] = 2219) 13 U/L Delfino OrtaCD4/CD8 LYMPHOCYTE [id number] 00:00:00* Test Item Value Reference Range Interpretation Comme nts ABSOLUTE LYMPHOCYTES (test c ode = 09997) 877 PERUL PERCENT CD4 (test code = 76236) 22.4 % ABSOLUTE CD4 (test code = 35638) 196 PERUL PERCENT CD8 (test code = 31837) 58.8 % ABSOLUTE CD8 (test code = 43147) 515 PERUL CD4/CD8 RATIO (test code = 16830) 0.38 Delfino OrtaHIV-1 QUANT, [id number] 00:00:00* Test Item Value Reference Range Interpretation Comme nts HIV-1 VIRAL COPY (test code = 4141) 619 COPIES/ML HIV-1 VIRAL LOG (test code = 75543) 2.792 LOGCOPIES/ML Delfino OrtaHEMOGLOBIN A1c [ADDED]2023-09-11 00:00:00* Test Item Value Reference Range Interpretation Comme nts HEMOGLOBIN A1c (test code = 76713) 5.6 % Delfino OrtaCBC W/AUTO [id number] 00:00:00* Test Item Value Reference Range Interpretation [...] ABS NUCLEATED RBCS (test cod e = 30837) 0.00 K/UL Delfino Schumacher YouCOMPREHENSIVE METABOLIC [id number] 00:00:00* Test Item Value Reference Range Interpretation Comme nts GLUCOSE (test code = 2217) 83 MG/DL BUN (test code = 2208) 24 MG/DL CREATININE (test code = 2214) 1.32 MG/DL eGFR (2020 CKD-EPI) (test co de = 39304) 46 ML/MIN/1.73 CALC BUN/CREAT (test code = [...] = 2219) 13 U/L Delfino OrtaCD4/CD8 LYMPHOCYTE [id number] 00:00:00* Test Item Value Reference Range Interpretation Comme nts ABSOLUTE LYMPHOCYTES (test c ode = 35852) 877 PERUL PERCENT CD4 (test code = 37841) 22.4 % ABSOLUTE CD4 (test code = 57154) 196 PERUL PERCENT CD8 (test code = 88577) 58.8 % ABSOLUTE CD8 (test code = 06057) 515 PERUL CD4/CD8 RATIO (test code = 30246) 0.38 Delfino OrtaHIV-1 QUANT, [id number] 00:00:00* Test Item Value Reference Range Interpretation Comme [facility] HIV-1 VIRAL COPY (test code = 4141) 619 COPIES/ML HIV-1 VIRAL LOG (test code = 12577) 2.792 LOGCOPIES/ML Delfino OrtaHEMOGLOBIN A1c [ADDED]2023-09-11 00:00:00* Test Item Value Reference Range Interpretation Comme [facility] HEMOGLOBIN A1c (test code = 83123) 5.6 % Delfino OrtaCBC W/AUTO [id number] 00:00:00* Test Item Value Reference Range Interpretation [...] ABS NUCLEATED RBCS (test cod e = 89016) 0.00 K/UL Delfino OrtaCOMPREHENSIVE METABOLIC [id number] 00:00:00* Test Item Value Reference Range Interpretation Comme nts GLUCOSE (test code = 2217) 83 MG/DL BUN (test code = 2208) 24 MG/DL CREATININE (test code = 2214) 1.32 MG/DL eGFR (2020 CKD-EPI) (test co de = 50488) 46 ML/MIN/1.73 CALC BUN/CREAT (test code = [...] = 2219) 13 U/L Delfino OrtaCD4/CD8 LYMPHOCYTE [id number] 00:00:00* Test Item Value Reference Range Interpretation Comme nts ABSOLUTE LYMPHOCYTES (test c ode = 89630) 877 PERUL PERCENT CD4 (test code = 81835) 22.4 % ABSOLUTE CD4 (test code = 11744) 196 PERUL PERCENT CD8 (test code = 02114) 58.8 % ABSOLUTE CD8 (test code = 88159) 515 PERUL CD4/CD8 RATIO (test code = 50548) 0.38 Delfino OrtaHIV-1 QUANT, [id number] 00:00:00* Test Item Value Reference Range Interpretation Comme nts HIV-1 VIRAL COPY (test code = 4141) 619 COPIES/ML HIV-1 VIRAL LOG (test code = 61451) 2.792 LOGCOPIES/ML Delfino OrtaHEMOGLOBIN A1c [ADDED]2023-09-11 00:00:00* Test Item Value Reference Range Interpretation Comme nts HEMOGLOBIN A1c (test code = 55995) 5.6 % Delfino OrtaCBC W/AUTO [id number] 00:00:00* Test Item Value Reference Range Interpretation [...] ABS NUCLEATED RBCS (test cod e = 86650) 0.00 K/UL Delfino OrtaCOMPREHENSIVE METABOLIC [id number] 00:00:00* Test Item Value Reference Range Interpretation Comme nts GLUCOSE (test code = 2217) 83 MG/DL BUN (test code = 2208) 24 MG/DL CREATININE (test code = 2214) 1.32 MG/DL eGFR (2020 CKD-EPI) (test co de = 54903) 46 ML/MIN/1.73 CALC BUN/CREAT (test code = [...] = 2219) 13 U/L Delfino OrtaCD4/CD8 LYMPHOCYTE [id number] 00:00:00* Test Item Value Reference Range Interpretation Comme nts ABSOLUTE LYMPHOCYTES (test c ode = 73434) 877 PERUL PERCENT CD4 (test code = 77188) 22.4 % ABSOLUTE CD4 (test code = 59646) 196 PERUL PERCENT CD8 (test code = 03945) 58.8 % ABSOLUTE CD8 (test code = 55419) 515 PERUL CD4/CD8 RATIO (test code = 39362) 0.38 Delfino OrtaHIV-1 QUANT, [id number] 00:00:00* Test Item Value Reference Range Interpretation Comme nts HIV-1 VIRAL COPY (test code = 4141) 619 COPIES/ML HIV-1 VIRAL LOG (test code = 04774) 2.792 LOGCOPIES/ML Delfino OrtaHEMOGLOBIN A1c [ADDED]2023-09-11 00:00:00* Test Item Value Reference Range Interpretation Comme nts HEMOGLOBIN A1c (test code = 91360) 5.6 % Delfino OrtaCBC W/AUTO [id number] 00:00:00* Test Item Value Reference Range Interpretation [...] ABS NUCLEATED RBCS (test cod e = 69387) 0.00 K/UL Delfino OrtaCOMPREHENSIVE METABOLIC [id number] 00:00:00* Test Item Value Reference Range Interpretation Comme nts GLUCOSE (test code = 2217) 83 MG/DL BUN (test code = 2208) 24 MG/DL CREATININE (test code = 2214) 1.32 MG/DL eGFR (2020 CKD-EPI) (test co de = 72951) 46 ML/MIN/1.73 CALC BUN/CREAT (test code = [...] = 2219) 13 U/L Delfino OrtaCD4/CD8 LYMPHOCYTE [id number] 00:00:00* Test Item Value Reference Range Interpretation Comme nts ABSOLUTE LYMPHOCYTES (test c ode = 39404) 877 PERUL PERCENT CD4 (test code = 65009) 22.4 % ABSOLUTE CD4 (test code = 52958) 196 PERUL PERCENT CD8 (test code = 88774) 58.8 % ABSOLUTE CD8 (test code = 20288) 515 PERUL CD4/CD8 RATIO (test code = 40117) 0.38 Delfino OrtaHIV-1 QUANT, [id number] 00:00:00* Test Item Value Reference Range Interpretation Comme nts HIV-1 VIRAL COPY (test code = 4141) 619 COPIES/ML HIV-1 VIRAL LOG (test code = 21233) 2.792 LOGCOPIES/ML Delfino OrtaHEMOGLOBIN A1c [ADDED]2023-09-11 00:00:00* Test Item Value Reference Range Interpretation Comme nts HEMOGLOBIN A1c (test code = 50945) 5.6 % Delfino OrtaCBC W/AUTO [id number] 00:00:00* Test Item Value Reference Range Interpretation [...] ABS NUCLEATED RBCS (test cod e = 40745) 0.00 K/UL Delfino Endy YouCOMPREHENSIVE METABOLIC [id number] 00:00:00* Test Item Value Reference Range Interpretation Comme nts GLUCOSE (test code = 2217) 83 MG/DL BUN (test code = 2208) 24 MG/DL CREATININE (test code = 2214) 1.32 MG/DL eGFR (2020 CKD-EPI) (test co de = 67452) 46 ML/MIN/1.73 CALC BUN/CREAT (test code = [...] = 2219) 13 U/L Delfino OrtaCD4/CD8 LYMPHOCYTE [id number] 00:00:00* Test Item Value Reference Range Interpretation Comme nts ABSOLUTE LYMPHOCYTES (test c ode = 70799) 877 PERUL PERCENT CD4 (test code = 12924) 22.4 % ABSOLUTE CD4 (test code = 58961) 196 PERUL PERCENT CD8 (test code = 48748) 58.8 % ABSOLUTE CD8 (test code = 09749) 515 PERUL CD4/CD8 RATIO (test code = 06104) 0.38 Delfino OrtaHIV-1 QUANT, [id number] 00:00:00* Test Item Value Reference Range Interpretation Comme [facility] HIV-1 VIRAL COPY (test code = 4141) 619 COPIES/ML HIV-1 VIRAL LOG (test code = 94833) 2.792 LOGCOPIES/ML Delfino OrtaHEMOGLOBIN A1c [ADDED]2023-09-11 00:00:00* Test Item Value Reference Range Interpretation Comme nts HEMOGLOBIN A1c (test code = 07333) 5.6 % Delfino OrtaCBC W/AUTO [id number] 00:00:00* Test Item Value Reference Range Interpretation [...] ABS NUCLEATED RBCS (test cod e = 27492) 0.00 K/UL Delfino OrtaCOMPREHENSIVE METABOLIC [id number] 00:00:00* Test Item Value Reference Range Interpretation Comme nts GLUCOSE (test code = 2217) 83 MG/DL BUN (test code = 2208) 24 MG/DL CREATININE (test code = 2214) 1.32 MG/DL eGFR (2020 CKD-EPI) (test co de = 50393) 46 ML/MIN/1.73 CALC BUN/CREAT (test code = [...] = 2219) 13 U/L Delfino OrtaCD4/CD8 LYMPHOCYTE [id number] 00:00:00* Test Item Value Reference Range Interpretation Comme nts ABSOLUTE LYMPHOCYTES (test c ode = 34239) 877 PERUL PERCENT CD4 (test code = 58459) 22.4 % ABSOLUTE CD4 (test code = 50104) 196 PERUL PERCENT CD8 (test code = 06956) 58.8 % ABSOLUTE CD8 (test code = 94191) 515 PERUL CD4/CD8 RATIO (test code = 04200) 0.38 Delfino OrtaHIV-1 QUANT, [id number] 00:00:00* Test Item Value Reference Range Interpretation Comme [facility] HIV-1 VIRAL COPY (test code = 4141) 619 COPIES/ML HIV-1 VIRAL LOG (test code = 95084) 2.792 LOGCOPIES/ML Delfino OrtaHEMOGLOBIN A1c [ADDED]2023-09-11 00:00:00* Test Item Value Reference Range Interpretation Comme [facility] HEMOGLOBIN A1c (test code = 90207) 5.6 % Delfino OrtaCBC W/AUTO [id number] 00:00:00* Test Item Value Reference Range Interpretation [...] ABS NUCLEATED RBCS (test cod e = 95950) 0.00 K/UL ANGEL [id number] 09:15:45SPECIMEN NUMBER: [id number] CULTURE, URINE SPECIMEN NUMBER: [id number] SPECIMEN COMMENT: URINE SOURCE: URINE REPORT STATUS: FINAL FINAL REPORT: 08/30/2023 10-100,000 CFU/ML MIXED MICROBIAL POPULATION PRESENT, NO PREDOMINATING ORGANISMS;PROBABLE CONTAMINANTS. UNLESS OTHERWISE INDICATED, ALL TESTING PERFORMED AT [facility] [address] [place] [address] POWER TRANSMISSION ENGINEER:ABBI SHORT M.D. CLIA NUMBER [id number] [facility] [place]. [id number], [id number] 00:00:00* Test Item Value Reference Range Interpretation Comme nts CULTURE, URINE (test code = 36009) SPECIMEN NUMBER: [id number] Delfino Cedeño [id number] 00:00:00* Test Item Value Reference Range Interpretation Comme nts CULTURE, URINE (test code = 67320) SPECIMEN NUMBER: [id number] Delfino Cedeño [id number] 00:00:00* Test Item Value Reference Range Interpretation Comme nts CULTURE, URINE (test code = 12746) SPECIMEN NUMBER: [id number] Delfino Cdeeño [id number] 00:00:00* Test Item Value Reference Range Interpretation Comme nts CULTURE, URINE (test code = 30533) SPECIMEN NUMBER: [id number] Delfino Cedeño [id number] 00:00:00* Test Item Value Reference Range Interpretation Comme nts CULTURE, URINE (test code = 38230) SPECIMEN NUMBER: [id number] Delfino Cedeño, [id number] 00:00:00* Test Item Value Reference Range Interpretation Comme nts CULTURE, URINE (test code = 30075) SPECIMEN NUMBER: [id number] Delfino Cedeño [id number] 00:00:00* Test Item Value Reference Range Interpretation Comme nts CULTURE, URINE (test code = 30734) SPECIMEN NUMBER: [id number] Delfino Cedeño [id number] 00:00:00* Test Item Value Reference Range Interpretation Comme nts CULTURE, URINE (test code = 11461) SPECIMEN NUMBER: [id number] Delfino Cedeño [id number] 00:00:00* Test Item Value Reference Range Interpretation Comme nts CULTURE, URINE (test code = 38749) SPECIMEN NUMBER: [id number] Delfino Cedeño, [id number] 00:00:00* Test Item Value Reference Range Interpretation Comme nts CULTURE, URINE (test code = 03453) SPECIMEN NUMBER: [id number] Delfino Cedeño [id number] 00:00:00* Test Item Value Reference Range Interpretation Comme nts CULTURE, URINE (test code = 21599) SPECIMEN NUMBER: [id number] Delfino Cedeño [id number] 00:00:00* Test Item Value Reference Range Interpretation Comme nts CULTURE, URINE (test code = 36350) SPECIMEN NUMBER: [id number] Delfino Cedeño [id number] 00:00:00* Test Item Value Reference Range Interpretation Comme nts CULTURE, URINE (test code = 21688) SPECIMEN NUMBER: [id number] Delfino OrtaREFERRAL- REQUEST/[id number] 15:45:25Ordered by an unspecified provider.[facility] [id number] 11:03:25* Test Item Value Reference Range Interpretation Comments BICTEGRAVIR (test code = 913225) Susceptible CABOTEGRAVIR (test code = 064397) Susceptible DOLUTEGRAVIR (test code = 47704) Susceptible ELVITEGRAVIR (test code = 81601) Susceptible RALTEGRAVIR (test code = 55438) Susceptible DRUG RESIST MUTATIONS (test code = 126707) INSTI (test code = 83523) None ACC RESIST MUTATIONS (test code = 988423) ACCESSORY MUT: (test code = 09544) None OTHER MUTATIONS (test code = 252723) INSTI (test code = 99841) SEE BELOW HIV-1 SUBTYPE (test code = 806023) B NATALIE HIVDB [place] (test code = 604770) HIVDB_9.6 Other Mutations (INSTI): S24G, A38R, L45S, [...] with the ARV. Methodology:Testing methodology is reverse rn intensive care unit polymerase chainreaction (RT-PCR) and next-generation sequencing (NGS) of theintegrase (IN) region of the HIV-1 polymerase ([place]) gene. HIV-1integrase inhibitor resistance mutations and associatedsusceptibility interpretations are assigned relative to the HIV-1subtype B consensus sequence utilizing the genotypic resistanceinterpretation algorithm of the [place] HIV Drug ResistanceDatabase (HIVDB). This test detects HIV-1 drug resistance mutations at a frequencyas low as 10%, which may account for differences in resistanceinterpretations between methods. Test results should be used andinterpreted in the context of clinical findings and other laboratorytest results. Disclaimer:This test was developed and its performance characteristicsdetermined by [facility] ([facility]). It has not beencleared or approved by the U.S. Food and Drug Administration (FDA).The FDA has determined that such clearance or approval is notnecessary. This test is used for clinical purposes and should not beregarded as investigational or for research. [facility] is qualified toperform high complexity testing under the Clinical LaboratoryImprovement Amendments (CLIA). TESTING PERFORMED AT [facility] [address] [facility] [address], [address] [address] CLIA NO: [id number] UNLESS OTHERWISE INDICATED, ALL TESTING PERFORMED AT [facility] [address] [place] [address] POWER TRANSMISSION ENGINEER: ABBI SHORT M.D. CLIA NUMBER [id number] [facility] [place]. [id number] HIV-1 INTEGRASE INHIBITOR [id number] 00:00:00* Test Item Value Reference Range Interpretation Comme nts BICTEGRAVIR (test code = 334718) Susceptible CABOTEGRAVIR (test code = 436932) Susceptible DOLUTEGRAVIR (test code = 36655) Susceptible ELVITEGRAVIR (test code = 67453) Susceptible RALTEGRAVIR (test code = 28356) Susceptible DRUG RESIST MUTATIONS (test code = 688985) INSTI (test code = 36055) None ACC RESIST MUTATIONS (test c ode = 659358) ACCESSORY MUT: (test code = 92190) None OTHER MUTATIONS (test code = 643251) INSTI (test code = 05420) SEE BELOW HIV-1 SUBTYPE (test code = 215457) B NATALIE HIVDB [place] (test cod e = 118837) HIVDB_9.6 Delfino OrtaHIV-1 INTEGRASE INHIBITOR [id number] 00:00:00* Test Item Value Reference Range Interpretation Comme nts BICTEGRAVIR (test code = 995942) Susceptible CABOTEGRAVIR (test code = 581384) Susceptible DOLUTEGRAVIR (test code = 18506) Susceptible ELVITEGRAVIR (test code = 37246) Susceptible RALTEGRAVIR (test code = 34625) Susceptible DRUG RESIST MUTATIONS (test code = 088945) INSTI (test code = 84653) None ACC RESIST MUTATIONS (test c ode = 751877) ACCESSORY MUT: (test code = 86171) None OTHER MUTATIONS (test code = 574693) INSTI (test code = 89521) SEE BELOW HIV-1 SUBTYPE (test code = 166046) B [place] HIVDB PRE[place] (test cod e = 676074) HIVDB_9.6 Delfino Schumacher AustinHIV-1 INTEGRASE INHIBITOR [id number] 00:00:00* Test Item Value Reference Range Interpretation Comme nts BICTEGRAVIR (test code = 696893) Susceptible CABOTEGRAVIR (test code = 183496) Susceptible DOLUTEGRAVIR (test code = 58083) Susceptible ELVITEGRAVIR (test code = 29734) Susceptible RALTEGRAVIR (test code = 13506) Susceptible DRUG RESIST MUTATIONS (test code = 794104) INSTI (test code = 69622) None ACC RESIST MUTATIONS (test c ode = 172567) ACCESSORY MUT: (test code = 65195) None OTHER MUTATIONS (test code = 706375) INSTI (test code = 32671) SEE BELOW HIV-1 SUBTYPE (test code = 131645) B [place] HIVDB PRE[place] (test cod e = 360412) HIVDB_9.6 Delfino Schumacher AustinHIV-1 INTEGRASE INHIBITOR [id number] 00:00:00* Test Item Value Reference Range Interpretation Comme nts BICTEGRAVIR (test code = 045450) Susceptible CABOTEGRAVIR (test code = 234776) Susceptible DOLUTEGRAVIR (test code = 06579) Susceptible ELVITEGRAVIR (test code = 06507) Susceptible RALTEGRAVIR (test code = 83075) Susceptible DRUG RESIST MUTATIONS (test code = 262289) INSTI (test code = 30814) None ACC RESIST MUTATIONS (test c ode = 652915) ACCESSORY MUT: (test code = 73026) None OTHER MUTATIONS (test code = 426706) INSTI (test code = 85209) SEE BELOW HIV-1 SUBTYPE (test code = 872384) B [place] HIVDB PRE[place] (test cod e = 522999) HIVDB_9.6 Delfino Schumacher AustinHIV-1 INTEGRASE INHIBITOR [id number] 00:00:00* Test Item Value Reference Range Interpretation Comme nts BICTEGRAVIR (test code = 680137) Susceptible CABOTEGRAVIR (test code = 987340) Susceptible DOLUTEGRAVIR (test code = 19304) Susceptible ELVITEGRAVIR (test code = 22695) Susceptible RALTEGRAVIR (test code = 43627) Susceptible DRUG RESIST MUTATIONS (test code = 001854) INSTI (test code = 04165) None ACC RESIST MUTATIONS (test c ode = 186464) ACCESSORY MUT: (test code = 83423) None OTHER MUTATIONS (test code = 638071) INSTI (test code = 89067) SEE BELOW HIV-1 SUBTYPE (test code = 709782) B [place] HIVDB PRE[place] (test cod e = 414425) HIVDB_9.6 Delfino OrtaHIV-1 INTEGRASE INHIBITOR [id number] 00:00:00* Test Item Value Reference Range Interpretation Comme nts BICTEGRAVIR (test code = 569990) Susceptible CABOTEGRAVIR (test code = 842221) Susceptible DOLUTEGRAVIR (test code = 19432) Susceptible ELVITEGRAVIR (test code = 08746) Susceptible RALTEGRAVIR (test code = 45895) Susceptible DRUG RESIST MUTATIONS (test code = 312701) INSTI (test code = 95859) None ACC RESIST MUTATIONS (test c ode = 382716) ACCESSORY MUT: (test code = 20621) None OTHER MUTATIONS (test code = 523225) INSTI (test code = 19768) SEE BELOW HIV-1 SUBTYPE (test code = 542893) B [place] HIVDB PRESTON (test cod e = 210624) HIVDB_9.6 Delfino Schumacher AustinHIV-1 INTEGRASE INHIBITOR [id number] 00:00:00* Test Item Value Reference Range Interpretation Comme nts BICTEGRAVIR (test code = 627251) Susceptible CABOTEGRAVIR (test code = 812917) Susceptible DOLUTEGRAVIR (test code = 71796) Susceptible ELVITEGRAVIR (test code = 73624) Susceptible RALTEGRAVIR (test code = 39249) Susceptible DRUG RESIST MUTATIONS (test code = 420778) INSTI (test code = 65288) None ACC RESIST MUTATIONS (test c ode = 308084) ACCESSORY MUT: (test code = 85706) None OTHER MUTATIONS (test code = 232197) INSTI (test code = 66619) SEE BELOW HIV-1 SUBTYPE (test code = 061103) B [place] HIVDB PRESTON (test cod e = 849572) HIVDB_9.6 Delfino OrtaHIV-1 INTEGRASE INHIBITOR [id number] 00:00:00* Test Item Value Reference Range Interpretation Comme nts BICTEGRAVIR (test code = 657862) Susceptible CABOTEGRAVIR (test code = 493528) Susceptible DOLUTEGRAVIR (test code = 82976) Susceptible ELVITEGRAVIR (test code = 20031) Susceptible RALTEGRAVIR (test code = 03302) Susceptible DRUG RESIST MUTATIONS (test code = 825243) INSTI (test code = 90162) None ACC RESIST MUTATIONS (test c ode = 326100) ACCESSORY MUT: (test code = 39488) None OTHER MUTATIONS (test code = 032710) INSTI (test code = 88465) SEE BELOW HIV-1 SUBTYPE (test code = 784022) B [place] HIVDB PRESTON (test cod e = 614482) HIVDB_9.6 Delfino Schumacher AustinHIV-1 INTEGRASE INHIBITOR [id number] 00:00:00* Test Item Value Reference Range Interpretation Comme nts BICTEGRAVIR (test code = 345342) Susceptible CABOTEGRAVIR (test code = 474840) Susceptible DOLUTEGRAVIR (test code = 67275) Susceptible ELVITEGRAVIR (test code = 02362) Susceptible RALTEGRAVIR (test code = 32175) Susceptible DRUG RESIST MUTATIONS (test code = 460365) INSTI (test code = 85709) None ACC RESIST MUTATIONS (test c ode = 957279) ACCESSORY MUT: (test code = 24506) None OTHER MUTATIONS (test code = 640602) INSTI (test code = 34973) SEE BELOW HIV-1 SUBTYPE (test code = 190841) [place] HIV[facility] (test cod e = 850472) HIVDB_9.6 Delfino OrtaHIV-1 INTEGRASE INHIBITOR [id number] 00:00:00* Test Item Value Reference Range Interpretation Comme nts BICTEGRAVIR (test code = 125924) Susceptible CABOTEGRAVIR (test code = 773390) Susceptible DOLUTEGRAVIR (test code = 69751) Susceptible ELVITEGRAVIR (test code = 40297) Susceptible RALTEGRAVIR (test code = 69263) Susceptible DRUG RESIST MUTATIONS (test code = 848911) INSTI (test code = 00378) None ACC RESIST MUTATIONS (test c ode = 906666) ACCESSORY MUT: (test code = 02516) None OTHER MUTATIONS (test code = 798396) INSTI (test code = 93881) SEE BELOW HIV-1 SUBTYPE (test code = 365694) [place] [facility] (test cod e = 927253) HIVDB_9.6 Delfino Schumacher AustinHIV-1 INTEGRASE INHIBITOR [id number] 00:00:00* Test Item Value Reference Range Interpretation Comme nts BICTEGRAVIR (test code = 359255) Susceptible CABOTEGRAVIR (test code = 808286) Susceptible DOLUTEGRAVIR (test code = 50103) Susceptible ELVITEGRAVIR (test code = 37506) Susceptible RALTEGRAVIR (test code = 97618) Susceptible DRUG RESIST MUTATIONS (test code = 405654) INSTI (test code = 42864) None ACC RESIST MUTATIONS (test c ode = 988719) ACCESSORY MUT: (test code = 72887) None OTHER MUTATIONS (test code = 183329) INSTI (test code = 69036) SEE BELOW HIV-1 SUBTYPE (test code = 751452) [place] [facility] (test cod e = 659768) HIVDB_9.6 Delfino Schumacher AustinHIV-1 INTEGRASE INHIBITOR [id number] 00:00:00* Test Item Value Reference Range Interpretation Comme nts BICTEGRAVIR (test code = 948318) Susceptible CABOTEGRAVIR (test code = 980937) Susceptible DOLUTEGRAVIR (test code = 59133) Susceptible ELVITEGRAVIR (test code = 50305) Susceptible RALTEGRAVIR (test code = 61236) Susceptible DRUG RESIST MUTATIONS (test code = 487010) INSTI (test code = 56561) None ACC RESIST MUTATIONS (test c ode = 524160) ACCESSORY MUT: (test code = 05690) None OTHER MUTATIONS (test code = 361750) INSTI (test code = 03370) SEE BELOW HIV-1 SUBTYPE (test code = 431995) [place] [facility] (test cod e = 568008) HIVDB_9.6 Delfino Schumacher [place]HIV-1 INTEGRASE INHIBITOR [id number] 00:00:00* Test Item Value Reference Range Interpretation Comme nts BICTEGRAVIR (test code = 471104) Susceptible CABOTEGRAVIR (test code = 002936) Susceptible DOLUTEGRAVIR (test code = 09095) Susceptible ELVITEGRAVIR (test code = 47235) Susceptible RALTEGRAVIR (test code = 58033) Susceptible DRUG RESIST MUTATIONS (test code = 798596) INSTI (test code = 61734) None ACC RESIST MUTATIONS (test c ode = 484932) ACCESSORY MUT: (test code = 06280) None OTHER MUTATIONS (test code = 337412) INSTI (test code = 64796) SEE BELOW HIV-1 SUBTYPE (test code = 806597) [place] [facility] (test cod e = 033761) HIVDB_9.6 Delfino Schumacher AustinHIV-1 INTEGRASE INHIBITOR [id number] 00:00:00* Test Item Value Reference Range Interpretation Comme nts BICTEGRAVIR (test code = 552048) Susceptible CABOTEGRAVIR (test code = 209308) Susceptible DOLUTEGRAVIR (test code = 69116) Susceptible ELVITEGRAVIR (test code = 59261) Susceptible RALTEGRAVIR (test code = 42514) Susceptible DRUG RESIST MUTATIONS (test code = 978719) INSTI (test code = 31528) None ACC RESIST MUTATIONS (test c ode = 374898) ACCESSORY MUT: (test code = 93134) None OTHER MUTATIONS (test code = 926200) INSTI (test code = 78077) SEE BELOW HIV-1 SUBTYPE (test code = 622758) [place] [facility] (test cod e = 222665) HIVDB_9.6 Delfino Schumacher AustinHIV-1 INTEGRASE INHIBITOR [id number] 00:00:00* Test Item Value Reference Range Interpretation Comme nts BICTEGRAVIR (test code = 461161) Susceptible CABOTEGRAVIR (test code = 984717) Susceptible DOLUTEGRAVIR (test code = 04623) Susceptible ELVITEGRAVIR (test code = 80476) Susceptible RALTEGRAVIR (test code = 31604) Susceptible DRUG RESIST MUTATIONS (test code = 965467) INSTI (test code = 53815) None ACC RESIST MUTATIONS (test c ode = 110528) ACCESSORY MUT: (test code = 53354) None OTHER MUTATIONS (test code = 625096) INSTI (test code = 53709) SEE BELOW HIV-1 SUBTYPE (test code = 710471) [place] [facility] (test cod e = 688704) HIVDB_9.6 Delfino Schumacher AustinHIV-1 INTEGRASE INHIBITOR [id number] 00:00:00* Test Item Value Reference Range Interpretation Comme nts BICTEGRAVIR (test code = 652024) Susceptible CABOTEGRAVIR (test code = 656469) Susceptible DOLUTEGRAVIR (test code = 80078) Susceptible ELVITEGRAVIR (test code = 05819) Susceptible RALTEGRAVIR (test code = 07335) Susceptible DRUG RESIST MUTATIONS (test code = 182101) INSTI (test code = 77966) None ACC RESIST MUTATIONS (test c ode = 150736) ACCESSORY MUT: (test code = 51609) None OTHER MUTATIONS (test code = 303173) INSTI (test code = 30886) SEE BELOW HIV-1 SUBTYPE (test code = 492343) [place] [facility] (test cod e = 868271) HIVDB_9.6 Delfino Schumacher AustinHIV-1 INTEGRASE INHIBITOR [id number] 00:00:00* Test Item Value Reference Range Interpretation Comme nts BICTEGRAVIR (test code = 558150) Susceptible CABOTEGRAVIR (test code = 157116) Susceptible DOLUTEGRAVIR (test code = 85626) Susceptible ELVITEGRAVIR (test code = 04696) Susceptible RALTEGRAVIR (test code = 54618) Susceptible DRUG RESIST MUTATIONS (test code = 346678) INSTI (test code = 59370) None ACC RESIST MUTATIONS (test c ode = 867180) ACCESSORY MUT: (test code = 68934) None OTHER MUTATIONS (test code = 214433) INSTI (test code = 67400) SEE BELOW HIV-1 SUBTYPE (test code = 618007) [place] [facility] (test cod e = 552484) HIVDB_9.6 Delfino OrtaHIV-1 INTEGRASE INHIBITOR [id number] 00:00:00* Test Item Value Reference Range Interpretation Comme nts BICTEGRAVIR (test code = 872940) Susceptible CABOTEGRAVIR (test code = 135037) Susceptible DOLUTEGRAVIR (test code = 23979) Susceptible ELVITEGRAVIR (test code = 11538) Susceptible RALTEGRAVIR (test code = 91537) Susceptible DRUG RESIST MUTATIONS (test code = 967467) INSTI (test code = 50817) None ACC RESIST MUTATIONS (test c ode = 487826) ACCESSORY MUT: (test code = 57244) None OTHER MUTATIONS (test code = 427004) INSTI (test code = 82147) SEE BELOW HIV-1 SUBTYPE (test code = 953108) [place] [facility] (test cod e = 393572) HIVDB_9.6 Delfino Schumacher AustinCD4/CD8 LYMPHOCYTE [id number] 12:40:38* Test Item Value Reference Range Interpretation Comme nts ABSOLUTE LYMPHOCYTES (test code = 78810) 941 PER UL 6301-1440 L Specimen rec eived outside of temperature specifications. Resultsreviewed by Abbi Short M.D. PERCENT CD4 (test code = 00514) 16.3 % 34.0-65.0 L ABSOLUTE CD4 (test code = 41677) 154 PER UL 520-1470 L PERCENT CD8 (test code = 01336) 52.5 % 13.0-38.0 H ABSOLUTE CD8 (test code = 30613) 494 PER UL 205-920 CD4/CD8 RATIO (test code = 78544) 0.31 0.92-3.41 L CD4/CD8 LYMPHOCYTE [id number] 00:00:00* Test Item Value Reference Range Interpretation Comme nts ABSOLUTE LYMPHOCYTES (test c ode = 07673) 941 PERUL PERCENT CD4 (test code = 39459) 16.3 % ABSOLUTE CD4 (test code = 92721) 154 PERUL PERCENT CD8 (test code = 32544) 52.5 % ABSOLUTE CD8 (test code = 01349) 494 PERUL CD4/CD8 RATIO (test code = 09647) 0.31 Delfino Schumacher AustinCD4/CD8 LYMPHOCYTE [id number] 00:00:00* Test Item Value Reference Range Interpretation Comme nts ABSOLUTE LYMPHOCYTES (test c ode = 53132) 941 PERUL PERCENT CD4 (test code = 31310) 16.3 % ABSOLUTE CD4 (test code = 53142) 154 PERUL PERCENT CD8 (test code = 79624) 52.5 % ABSOLUTE CD8 (test code = 18538) 494 PERUL CD4/CD8 RATIO (test code = 19427) 0.31 Delfino Schumacher AustinCD4/CD8 LYMPHOCYTE [id number] 00:00:00* Test Item Value Reference Range Interpretation Comme nts ABSOLUTE LYMPHOCYTES (test c ode = 35332) 941 PERUL PERCENT CD4 (test code = 96990) 16.3 % ABSOLUTE CD4 (test code = 96015) 154 PERUL PERCENT CD8 (test code = 69486) 52.5 % ABSOLUTE CD8 (test code = 62007) 494 PERUL CD4/CD8 RATIO (test code = 55153) 0.31 Delfino Schumacher AustinCD4/CD8 LYMPHOCYTE [id number] 00:00:00* Test Item Value Reference Range Interpretation Comme nts ABSOLUTE LYMPHOCYTES (test c ode = 52014) 941 PERUL PERCENT CD4 (test code = 26060) 16.3 % ABSOLUTE CD4 (test code = 04814) 154 PERUL PERCENT CD8 (test code = 96034) 52.5 % ABSOLUTE CD8 (test code = 85189) 494 PERUL CD4/CD8 RATIO (test code = 40153) 0.31 Delfino Schumacher AustinCD4/CD8 LYMPHOCYTE [id number] 00:00:00* Test Item Value Reference Range Interpretation Comme nts ABSOLUTE LYMPHOCYTES (test c ode = 33654) 941 PERUL PERCENT CD4 (test code = 27243) 16.3 % ABSOLUTE CD4 (test code = 56911) 154 PERUL PERCENT CD8 (test code = 83565) 52.5 % ABSOLUTE CD8 (test code = 90566) 494 PERUL CD4/CD8 RATIO (test code = 06866) 0.31 Delfino Schumacher AustinCD4/CD8 LYMPHOCYTE [id number] 00:00:00* Test Item Value Reference Range Interpretation Comme nts ABSOLUTE LYMPHOCYTES (test c ode = 34560) 941 PERUL PERCENT CD4 (test code = 03054) 16.3 % ABSOLUTE CD4 (test code = 54936) 154 PERUL PERCENT CD8 (test code = 68126) 52.5 % ABSOLUTE CD8 (test code = 23242) 494 PERUL CD4/CD8 RATIO (test code = 51542) 0.31 Delfino Schumacher AustinCD4/CD8 LYMPHOCYTE [id number] 00:00:00* Test Item Value Reference Range Interpretation Comme nts ABSOLUTE LYMPHOCYTES (test c ode = 93959) 941 PERUL PERCENT CD4 (test code = 85736) 16.3 % ABSOLUTE CD4 (test code = 88646) 154 PERUL PERCENT CD8 (test code = 10927) 52.5 % ABSOLUTE CD8 (test code = 77080) 494 PERUL CD4/CD8 RATIO (test code = 71205) 0.31 Delfino Schumacher AustinCD4/CD8 LYMPHOCYTE [id number] 00:00:00* Test Item Value Reference Range Interpretation Comme nts ABSOLUTE LYMPHOCYTES (test c ode = 98715) 941 PERUL PERCENT CD4 (test code = 65526) 16.3 % ABSOLUTE CD4 (test code = 55966) 154 PERUL PERCENT CD8 (test code = 81293) 52.5 % ABSOLUTE CD8 (test code = 45001) 494 PERUL CD4/CD8 RATIO (test code = 80016) 0.31 Delfino Schumacher AustinCD4/CD8 LYMPHOCYTE [id number] 00:00:00* Test Item Value Reference Range Interpretation Comme nts ABSOLUTE LYMPHOCYTES (test c ode = 69060) 941 PERUL PERCENT CD4 (test code = 84755) 16.3 % ABSOLUTE CD4 (test code = 21334) 154 PERUL PERCENT CD8 (test code = 11056) 52.5 % ABSOLUTE CD8 (test code = 76927) 494 PERUL CD4/CD8 RATIO (test code = 19134) 0.31 Delfino Schumacher AustinCD4/CD8 LYMPHOCYTE [id number] 00:00:00* Test Item Value Reference Range Interpretation Comme nts ABSOLUTE LYMPHOCYTES (test c ode = 97404) 941 PERUL PERCENT CD4 (test code = 25743) 16.3 % ABSOLUTE CD4 (test code = 94579) 154 PERUL PERCENT CD8 (test code = 01212) 52.5 % ABSOLUTE CD8 (test code = 06655) 494 PERUL CD4/CD8 RATIO (test code = 75714) 0.31 Delfino Schumacher AustinCD4/CD8 LYMPHOCYTE [id number] 00:00:00* Test Item Value Reference Range Interpretation Comme nts ABSOLUTE LYMPHOCYTES (test c ode = 44356) 941 PERUL PERCENT CD4 (test code = 76608) 16.3 % ABSOLUTE CD4 (test code = 38744) 154 PERUL PERCENT CD8 (test code = 26818) 52.5 % ABSOLUTE CD8 (test code = 67349) 494 PERUL CD4/CD8 RATIO (test code = 28663) 0.31 Delfino Schumacher AustinCD4/CD8 LYMPHOCYTE [id number] 00:00:00* Test Item Value Reference Range Interpretation Comme nts ABSOLUTE LYMPHOCYTES (test c ode = 20619) 941 PERUL PERCENT CD4 (test code = 96427) 16.3 % ABSOLUTE CD4 (test code = 49355) 154 PERUL PERCENT CD8 (test code = 94144) 52.5 % ABSOLUTE CD8 (test code = 87617) 494 PERUL CD4/CD8 RATIO (test code = 43650) 0.31 Delfino Schumacher AustinCD4/CD8 LYMPHOCYTE [id number] 00:00:00* Test Item Value Reference Range Interpretation Comme nts ABSOLUTE LYMPHOCYTES (test c ode = 81301) 941 PERUL PERCENT CD4 (test code = 55722) 16.3 % ABSOLUTE CD4 (test code = 51601) 154 PERUL PERCENT CD8 (test code = 74684) 52.5 % ABSOLUTE CD8 (test code = 03885) 494 PERUL CD4/CD8 RATIO (test code = 82009) 0.31 Delfino Schumacher AustinCD4/CD8 LYMPHOCYTE [id number] 00:00:00* Test Item Value Reference Range Interpretation Comme nts ABSOLUTE LYMPHOCYTES (test c ode = 45705) 941 PERUL PERCENT CD4 (test code = 38401) 16.3 % ABSOLUTE CD4 (test code = 42043) 154 PERUL PERCENT CD8 (test code = 85184) 52.5 % ABSOLUTE CD8 (test code = 04149) 494 PERUL CD4/CD8 RATIO (test code = 92139) 0.31 Delfino Schumacher AustinCD4/CD8 LYMPHOCYTE [id number] 00:00:00* Test Item Value Reference Range Interpretation Comme nts ABSOLUTE LYMPHOCYTES (test c ode = 88963) 941 PERUL PERCENT CD4 (test code = 03758) 16.3 % ABSOLUTE CD4 (test code = 62322) 154 PERUL PERCENT CD8 (test code = 49168) 52.5 % ABSOLUTE CD8 (test code = 11715) 494 PERUL CD4/CD8 RATIO (test code = 04478) 0.31 Delfino Schumacher AustinCD4/CD8 LYMPHOCYTE [id number] 00:00:00* Test Item Value Reference Range Interpretation Comme nts ABSOLUTE LYMPHOCYTES (test c ode = 60680) 941 PERUL PERCENT CD4 (test code = 63595) 16.3 % ABSOLUTE CD4 (test code = 03643) 154 PERUL PERCENT CD8 (test code = 93734) 52.5 % ABSOLUTE CD8 (test code = 60038) 494 PERUL CD4/CD8 RATIO (test code = 21510) 0.31 Delfino Schumacher AustinCD4/CD8 LYMPHOCYTE [id number] 00:00:00* Test Item Value Reference Range Interpretation Comme nts ABSOLUTE LYMPHOCYTES (test c ode = 80529) 941 PERUL PERCENT CD4 (test code = 96002) 16.3 % ABSOLUTE CD4 (test code = 89470) 154 PERUL PERCENT CD8 (test code = 45092) 52.5 % ABSOLUTE CD8 (test code = 33330) 494 PERUL CD4/CD8 RATIO (test code = 07560) 0.31 Delfino Schumacher AustinCD4/CD8 LYMPHOCYTE [id number] 00:00:00* Test Item Value Reference Range Interpretation Comme nts ABSOLUTE LYMPHOCYTES (test c ode = 87296) 941 PERUL PERCENT CD4 (test code = 64536) 16.3 % ABSOLUTE CD4 (test code = 89982) 154 PERUL PERCENT CD8 (test code = 55394) 52.5 % ABSOLUTE CD8 (test code = 14262) 494 PERUL CD4/CD8 RATIO (test code = 24558) 0.31 Delfino Schumacher [facility] W/AUTO DIFF WITH [id number] 11:40:06* Test Item Value Reference Range Interpretation [...] 0.00-0.10 ABS NUCLEATED RBCS (test code = 74239) 0.00 K/UL 0.00-0.11 COMMENTS (test code = 1016) (NOTE) MODERATE MACROCY TOSIS SLIGHT TOXIC GRANULATION PLATELETS APPEAR NORMAL SEE ADDITIONAL COMMENTS BELOW: SLIGHT VACUOLIZATION OF NEUTROPHILS COMPREHENSIVE METABOLIC [id number] 05:24:56* Test Item Value Reference Range Interpretation Comme nts GLUCOSE (test code = 2216) 90 MG/DL 70-99 BUN (test code = 2207) 40 MG/DL 8-23 H CREATININE (test code = 221) 2.05 MG/DL 0.60-1.30 H eGFR (2020 CKD-EPI) (test co de = 22279) 27 ML/MIN/1.73 >60 L CALC BUN/CREAT (test code = 5) 20 RATIO 6-28 SODIUM (test code = [...] code = 2219) 16 U/L 5-40 LIPID [id number] 05:24:56* Test Item Value Reference Range Interpretation [...] SPECIMENS. FOR MOREINFORMATION, SEE CLIENT ANNOUNCEMENT AT [email or web address] [email or web address] RATIO LDL/HDL (test code = 2238) 0.91 RATIO <3.22 LIPID [id number] 00:00:00* Test Item Value Reference Range Interpretation Comme nts CHOLESTEROL (test code = 2210) 212 MG/DL TRIGLYCERIDES (test code = 2232) 80 MG/DL HDL CHOLESTEROL (test code = 2220) 102 MG/DL CALC LDL CHOL (test code = 2237) 93 MG/DL RISK RATIO LDL/HDL (test cod e = 2238) 0.91 RATIO Delfino Schumacher AustinCBC W/AUTO [id number] 00:00:00* Test Item Value Reference Range Interpretation [...] ABS NUCLEATED RBCS (test cod e = 11280) 0.00 K/UL COMMENTS (test code = 1016) (NOTE) Delfino OrtaCOMPREHENSIVE METABOLIC [id number] 00:00:00* Test Item Value Reference Range Interpretation Comme nts GLUCOSE (test code = 2217) 90 MG/DL BUN (test code = 2208) 40 MG/DL CREATININE (test code = 2214) 2.05 MG/DL eGFR (2020 CKD-EPI) (test co de = 52348) 27 ML/MIN/1.73 CALC BUN/CREAT (test code = [...] code = 2219) 16 U/L Delfino OrtaLIPID [id number] 00:00:00* Test Item Value Reference Range Interpretation Comme nts CHOLESTEROL (test code = 2210) 212 MG/DL TRIGLYCERIDES (test code = 2232) 80 MG/DL HDL CHOLESTEROL (test code = 2220) 102 MG/DL CALC LDL CHOL (test code = 2237) 93 MG/DL RISK RATIO LDL/HDL (test cod e = 2238) 0.91 RATIO Delfino OrtaCBC W/AUTO [id number] 00:00:00* Test Item Value Reference Range Interpretation [...] ABS NUCLEATED RBCS (test cod e = 57587) 0.00 K/UL COMMENTS (test code = 1016) (NOTE) Delfino OrtaCOMPREHENSIVE METABOLIC [id number] 00:00:00* Test Item Value Reference Range Interpretation Comme nts GLUCOSE (test code = 2217) 90 MG/DL BUN (test code = 2208) 40 MG/DL CREATININE (test code = 2214) 2.05 MG/DL eGFR (2020 CKD-EPI) (test co de = 84558) 27 ML/MIN/1.73 CALC BUN/CREAT (test code = [...] code = 2219) 16 U/L Delfino OrtaLIPID [id number] 00:00:00* Test Item Value Reference Range Interpretation Comme nts CHOLESTEROL (test code = 2210) 212 MG/DL TRIGLYCERIDES (test code = 2232) 80 MG/DL HDL CHOLESTEROL (test code = 2220) 102 MG/DL CALC LDL CHOL (test code = 2237) 93 MG/DL RISK RATIO LDL/HDL (test cod e = 2238) 0.91 RATIO Delfino OrtaCBC W/AUTO [id number] 00:00:00* Test Item Value Reference Range Interpretation [...] ABS NUCLEATED RBCS (test cod e = 45311) 0.00 K/UL COMMENTS (test code = 1016) (NOTE) Delfino OrtaCOMPREHENSIVE METABOLIC [id number] 00:00:00* Test Item Value Reference Range Interpretation Comme nts GLUCOSE (test code = 2217) 90 MG/DL BUN (test code = 2208) 40 MG/DL CREATININE (test code = 2214) 2.05 MG/DL eGFR (2020 CKD-EPI) (test co de = 68193) 27 ML/MIN/1.73 CALC BUN/CREAT (test code = [...] code = 2219) 16 U/L Delfino OrtaLIPID [id number] 00:00:00* Test Item Value Reference Range Interpretation Comme nts CHOLESTEROL (test code = 2210) 212 MG/DL TRIGLYCERIDES (test code = 2232) 80 MG/DL HDL CHOLESTEROL (test code = 2220) 102 MG/DL CALC LDL CHOL (test code = 2237) 93 MG/DL RISK RATIO LDL/HDL (test cod e = 2238) 0.91 RATIO Delfino OrtaCBC W/AUTO [id number] 00:00:00* Test Item Value Reference Range Interpretation [...] ABS NUCLEATED RBCS (test cod e = 81432) 0.00 K/UL COMMENTS (test code = 1016) (NOTE) Delfino OrtaCOMPREHENSIVE METABOLIC [id number] 00:00:00* Test Item Value Reference Range Interpretation Comme nts GLUCOSE (test code = 2217) 90 MG/DL BUN (test code = 2208) 40 MG/DL CREATININE (test code = 2214) 2.05 MG/DL eGFR (2020 CKD-EPI) (test co de = 43842) 27 ML/MIN/1.73 CALC BUN/CREAT (test code = [...] code = 2219) 16 U/L Delfino OrtaLIPID [id number] 00:00:00* Test Item Value Reference Range Interpretation Comme nts CHOLESTEROL (test code = 2210) 212 MG/DL TRIGLYCERIDES (test code = 2232) 80 MG/DL HDL CHOLESTEROL (test code = 2220) 102 MG/DL CALC LDL CHOL (test code = 2237) 93 MG/DL RISK RATIO LDL/HDL (test cod e = 2238) 0.91 RATIO Delfino OrtaCBC W/AUTO [id number] 00:00:00* Test Item Value Reference Range Interpretation [...] ABS NUCLEATED RBCS (test cod e = 67260) 0.00 K/UL COMMENTS (test code = 1016) (NOTE) Delfino OrtaCOMPREHENSIVE METABOLIC [id number] 00:00:00* Test Item Value Reference Range Interpretation Comme nts GLUCOSE (test code = 2217) 90 MG/DL BUN (test code = 2208) 40 MG/DL CREATININE (test code = 2214) 2.05 MG/DL eGFR (2020 CKD-EPI) (test co de = 31819) 27 ML/MIN/1.73 CALC BUN/CREAT (test code = [...] code = 2219) 16 U/L Delfino OrtaLIPID [id number] 00:00:00* Test Item Value Reference Range Interpretation Comme nts CHOLESTEROL (test code = 2210) 212 MG/DL TRIGLYCERIDES (test code = 2232) 80 MG/DL HDL CHOLESTEROL (test code = 2220) 102 MG/DL CALC LDL CHOL (test code = 2237) 93 MG/DL RISK RATIO LDL/HDL (test cod e = 2238) 0.91 RATIO Delfino OrtaCBC W/AUTO [id number] 00:00:00* Test Item Value Reference Range Interpretation [...] ABS NUCLEATED RBCS (test cod e = 03443) 0.00 K/UL COMMENTS (test code = 1016) (NOTE) Delfino OrtaCOMPREHENSIVE METABOLIC [id number] 00:00:00* Test Item Value Reference Range Interpretation Comme nts GLUCOSE (test code = 2217) 90 MG/DL BUN (test code = 2208) 40 MG/DL CREATININE (test code = 2214) 2.05 MG/DL eGFR (2020 CKD-EPI) (test co de = 40876) 27 ML/MIN/1.73 CALC BUN/CREAT (test code = [...] code = 2219) 16 U/L Delfino OrtaLIPID [id number] 00:00:00* Test Item Value Reference Range Interpretation Comme nts CHOLESTEROL (test code = 2210) 212 MG/DL TRIGLYCERIDES (test code = 2232) 80 MG/DL HDL CHOLESTEROL (test code = 2220) 102 MG/DL CALC LDL CHOL (test code = 2237) 93 MG/DL RISK RATIO LDL/HDL (test cod e = 2238) 0.91 RATIO Delfino OrtaCBC W/AUTO [id number] 00:00:00* Test Item Value Reference Range Interpretation [...] ABS NUCLEATED RBCS (test cod e = 96691) 0.00 K/UL COMMENTS (test code = 1016) (NOTE) Delfino OrtaCOMPREHENSIVE METABOLIC [id number] 00:00:00* Test Item Value Reference Range Interpretation Comme nts GLUCOSE (test code = 2217) 90 MG/DL BUN (test code = 2208) 40 MG/DL CREATININE (test code = 2214) 2.05 MG/DL eGFR (2020 CKD-EPI) (test co de = 77724) 27 ML/MIN/1.73 CALC BUN/CREAT (test code = [...] code = 2219) 16 U/L Delfino OrtaLIPID [id number] 00:00:00* Test Item Value Reference Range Interpretation Comme nts CHOLESTEROL (test code = 2210) 212 MG/DL TRIGLYCERIDES (test code = 2232) 80 MG/DL HDL CHOLESTEROL (test code = 2220) 102 MG/DL CALC LDL CHOL (test code = 2237) 93 MG/DL RISK RATIO LDL/HDL (test cod e = 2238) 0.91 RATIO Delfino OrtaCBC W/AUTO [id number] 00:00:00* Test Item Value Reference Range Interpretation [...] ABS NUCLEATED RBCS (test cod e = 44814) 0.00 K/UL COMMENTS (test code = 1016) (NOTE) Delfino OrtaCOMPREHENSIVE METABOLIC [id number] 00:00:00* Test Item Value Reference Range Interpretation Comme nts GLUCOSE (test code = 2217) 90 MG/DL BUN (test code = 2208) 40 MG/DL CREATININE (test code = 2214) 2.05 MG/DL eGFR (2020 CKD-EPI) (test co de = 62619) 27 ML/MIN/1.73 CALC BUN/CREAT (test code = [...] code = 2219) 16 U/L Delfino OrtaLIPID [id number] 00:00:00* Test Item Value Reference Range Interpretation Comme nts CHOLESTEROL (test code = 2210) 212 MG/DL TRIGLYCERIDES (test code = 2232) 80 MG/DL HDL CHOLESTEROL (test code = 2220) 102 MG/DL CALC LDL CHOL (test code = 2237) 93 MG/DL RISK RATIO LDL/HDL (test cod e = 2238) 0.91 RATIO Delfino OrtaCBC W/AUTO [id number] 00:00:00* Test Item Value Reference Range Interpretation [...] ABS NUCLEATED RBCS (test cod e = 41895) 0.00 K/UL COMMENTS (test code = 1016) (NOTE) Delfino OrtaCOMPREHENSIVE METABOLIC [id number] 00:00:00* Test Item Value Reference Range Interpretation Comme nts GLUCOSE (test code = 2217) 90 MG/DL BUN (test code = 2208) 40 MG/DL CREATININE (test code = 2214) 2.05 MG/DL eGFR (2020 CKD-EPI) (test co de = 39029) 27 ML/MIN/1.73 CALC BUN/CREAT (test code = [...] code = 2219) 16 U/L Delfino OrtaLIPID [id number] 00:00:00* Test Item Value Reference Range Interpretation Comme nts CHOLESTEROL (test code = 2210) 212 MG/DL TRIGLYCERIDES (test code = 2232) 80 MG/DL HDL CHOLESTEROL (test code = 2220) 102 MG/DL CALC LDL CHOL (test code = 2237) 93 MG/DL RISK RATIO LDL/HDL (test cod e = 2238) 0.91 RATIO Delfino OrtaCBC W/AUTO [id number] 00:00:00* Test Item Value Reference Range Interpretation [...] ABS NUCLEATED RBCS (test cod e = 38230) 0.00 K/UL COMMENTS (test code = 1016) (NOTE) Delfino OrtaCOMPREHENSIVE METABOLIC [id number] 00:00:00* Test Item Value Reference Range Interpretation [...] code = 2219) 16 U/L Delfino OrtaLIPID [id number] 00:00:00* Test Item Value Reference Range Interpretation Comme nts CHOLESTEROL (test code = 2210) 212 MG/DL TRIGLYCERIDES (test code = 2232) 80 MG/DL HDL CHOLESTEROL (test code = 2220) 102 MG/DL CALC LDL CHOL (test code = 2237) 93 MG/DL RISK RATIO LDL/HDL (test cod e = 2238) 0.91 RATIO Delfino OrtaCBC W/AUTO [id number] 00:00:00* Test Item Value Reference Range Interpretation [...] ABS NUCLEATED RBCS (test cod e = 90437) 0.00 K/UL COMMENTS (test code = 1016) (NOTE) Delfino OrtaCOMPREHENSIVE METABOLIC [id number] 00:00:00* Test Item Value Reference Range Interpretation Comme nts GLUCOSE (test code = 2217) 90 MG/DL BUN (test code = 2208) 40 MG/DL CREATININE (test code = 2214) 2.05 MG/DL eGFR (2020 CKD-EPI) (test co de = 78914) 27 ML/MIN/1.73 CALC BUN/CREAT (test code = [...] code = 2219) 16 U/L Delfino OrtaLIPID [id number] 00:00:00* Test Item Value Reference Range Interpretation Comme nts CHOLESTEROL (test code = 2210) 212 MG/DL TRIGLYCERIDES (test code = 2232) 80 MG/DL HDL CHOLESTEROL (test code = 2220) 102 MG/DL CALC LDL CHOL (test code = 2237) 93 MG/DL RISK RATIO LDL/HDL (test cod e = 2238) 0.91 RATIO Delfino OrtaCBC W/AUTO [id number] 00:00:00* Test Item Value Reference Range Interpretation [...] ABS NUCLEATED RBCS (test cod e = 72382) 0.00 K/UL COMMENTS (test code = 1016) (NOTE) Delfino OrtaCOMPREHENSIVE METABOLIC [id number] 00:00:00* Test Item Value Reference Range Interpretation Comme nts GLUCOSE (test code = 2217) 90 MG/DL BUN (test code = 2208) 40 MG/DL CREATININE (test code = 2214) 2.05 MG/DL eGFR (2020 CKD-EPI) (test co de = 75606) 27 ML/MIN/1.73 CALC BUN/CREAT (test code = [...] code = 2219) 16 U/L Delfino OrtaLIPID [id number] 00:00:00* Test Item Value Reference Range Interpretation Comme nts CHOLESTEROL (test code = 2210) 212 MG/DL TRIGLYCERIDES (test code = 2232) 80 MG/DL HDL CHOLESTEROL (test code = 2220) 102 MG/DL CALC LDL CHOL (test code = 2237) 93 MG/DL RISK RATIO LDL/HDL (test cod e = 2238) 0.91 RATIO Delfino OrtaCBC W/AUTO [id number] 00:00:00* Test Item Value Reference Range Interpretation [...] ABS NUCLEATED RBCS (test cod e = 44803) 0.00 K/UL COMMENTS (test code = 1016) (NOTE) Delfino OrtaCOMPREHENSIVE METABOLIC [id number] 00:00:00* Test Item Value Reference Range Interpretation Comme nts GLUCOSE (test code = 2217) 90 MG/DL BUN (test code = 2208) 40 MG/DL CREATININE (test code = 2214) 2.05 MG/DL eGFR (2020 CKD-EPI) (test co de = 19939) 27 ML/MIN/1.73 CALC BUN/CREAT (test code = [...] code = 2219) 16 U/L Delfino OrtaLIPID [id number] 00:00:00* Test Item Value Reference Range Interpretation Comme nts CHOLESTEROL (test code = 2210) 212 MG/DL TRIGLYCERIDES (test code = 2232) 80 MG/DL HDL CHOLESTEROL (test code = 2220) 102 MG/DL CALC LDL CHOL (test code = 2237) 93 MG/DL RISK RATIO LDL/HDL (test cod e = 2238) 0.91 RATIO Delfino OrtaCBC W/AUTO [id number] 00:00:00* Test Item Value Reference Range Interpretation [...] ABS NUCLEATED RBCS (test cod e = 84461) 0.00 K/UL COMMENTS (test code = 1016) (NOTE) Delfino OrtaCOMPREHENSIVE METABOLIC [id number] 00:00:00* Test Item Value Reference Range Interpretation Comme nts GLUCOSE (test code = 2217) 90 MG/DL BUN (test code = 2208) 40 MG/DL CREATININE (test code = 2214) 2.05 MG/DL eGFR (2020 CKD-EPI) (test co de = 49698) 27 ML/MIN/1.73 CALC BUN/CREAT (test code = [...] code = 2219) 16 U/L Delfino OrtaLIPID [id number] 00:00:00* Test Item Value Reference Range Interpretation Comme nts CHOLESTEROL (test code = 2210) 212 MG/DL TRIGLYCERIDES (test code = 2232) 80 MG/DL HDL CHOLESTEROL (test code = 2220) 102 MG/DL CALC LDL CHOL (test code = 2237) 93 MG/DL RISK RATIO LDL/HDL (test cod e = 2238) 0.91 RATIO Delfino OrtaCBC W/AUTO [id number] 00:00:00* Test Item Value Reference Range Interpretation [...] ABS NUCLEATED RBCS (test cod e = 69507) 0.00 K/UL COMMENTS (test code = 1016) (NOTE) Delfino OrtaCOMPREHENSIVE METABOLIC [id number] 00:00:00* Test Item Value Reference Range Interpretation Comme nts GLUCOSE (test code = 2217) 90 MG/DL BUN (test code = 2208) 40 MG/DL CREATININE (test code = 2214) 2.05 MG/DL eGFR (2020 CKD-EPI) (test co de = 85697) 27 ML/MIN/1.73 CALC BUN/CREAT (test code = [...] code = 2219) 16 U/L Delfino OrtaLIPID [id number] 00:00:00* Test Item Value Reference Range Interpretation Comme nts CHOLESTEROL (test code = 2210) 212 MG/DL TRIGLYCERIDES (test code = 2232) 80 MG/DL HDL CHOLESTEROL (test code = 2220) 102 MG/DL CALC LDL CHOL (test code = 2237) 93 MG/DL RISK RATIO LDL/HDL (test cod e = 2238) 0.91 RATIO Delfino Schumacher YouCBC W/AUTO [id number] 00:00:00* Test Item Value Reference Range Interpretation [...] ABS NUCLEATED RBCS (test cod e = 66570) 0.00 K/UL COMMENTS (test code = 1016) (NOTE) Delfino OrtaCOMPREHENSIVE METABOLIC [id number] 00:00:00* Test Item Value Reference Range Interpretation Comme nts GLUCOSE (test code = 2217) 90 MG/DL BUN (test code = 2208) 40 MG/DL CREATININE (test code = 2214) 2.05 MG/DL eGFR (2020 CKD-EPI) (test co de = 88632) 27 ML/MIN/1.73 CALC BUN/CREAT (test code = [...] code = 2219) 16 U/L Delfino OrtaLIPID [id number] 00:00:00* Test Item Value Reference Range Interpretation Comme nts CHOLESTEROL (test code = 2210) 212 MG/DL TRIGLYCERIDES (test code = 2232) 80 MG/DL HDL CHOLESTEROL (test code = 2220) 102 MG/DL CALC LDL CHOL (test code = 2237) 93 MG/DL RISK RATIO LDL/HDL (test cod e = 2238) 0.91 RATIO Delfino OrtaCBC W/AUTO [id number] 00:00:00* Test Item Value Reference Range Interpretation [...] ABS NUCLEATED RBCS (test cod e = 21608) 0.00 K/UL COMMENTS (test code = 1016) (NOTE) Delfino OrtaCOMPREHENSIVE METABOLIC [id number] 00:00:00* Test Item Value Reference Range Interpretation Comme nts GLUCOSE (test code = 2217) 90 MG/DL BUN (test code = 2208) 40 MG/DL CREATININE (test code = 2214) 2.05 MG/DL eGFR (2020 CKD-EPI) (test co de = 66665) 27 ML/MIN/1.73 CALC BUN/CREAT (test code = [...] code = 2219) 16 U/L Delfino OrtaLIPID [id number] 00:00:00* Test Item Value Reference Range Interpretation Comme nts CHOLESTEROL (test code = 2210) 212 MG/DL TRIGLYCERIDES (test code = 2232) 80 MG/DL HDL CHOLESTEROL (test code = 2220) 102 MG/DL CALC LDL CHOL (test code = 2237) 93 MG/DL RISK RATIO LDL/HDL (test cod e = 2238) 0.91 RATIO Delfino OrtaCBC W/AUTO [id number] 00:00:00* Test Item Value Reference Range Interpretation [...] ABS NUCLEATED RBCS (test cod e = 01404) 0.00 K/UL COMMENTS (test code = 1016) (NOTE) Delfino OrtaCOMPREHENSIVE METABOLIC [id number] 00:00:00* Test Item Value Reference Range Interpretation Comme nts GLUCOSE (test code = 2217) 90 MG/DL BUN (test code = 2208) 40 MG/DL CREATININE (test code = 2214) 2.05 MG/DL eGFR (2020 CKD-EPI) (test co de = 42135) 27 ML/MIN/1.73 CALC BUN/CREAT (test code = [...] code = 2219) 16 U/L Delfino Schumacher [facility] with [id number] 19:43:14* Test Item Value Reference Range Interpretation [...] 33.6 g/dL 31.6-35.1 RDW-SD (test code = 42716-4) 54.3 fL 39.0-49.9 H RDW-CV (test code = 788-0) 13.4 % 12.0-15.5 PLT (test code = 777-3) 133 166-358 L MPV (test code = 36013-7) 11.5 fL 9.5-12.9 IPF % (test code = 2179472687) 5.6 % 1.3-7.7 Platelet count measured by fluorescence method. NRBC/100 WBC (test code = 5916526920) 0.0 0.0-10.0 NRBC x10^3 (test code = 3036921951) See_Comment [Automated messa ge] The system which generated this result transmitted reference range: 10*3/?L. The reference range was not used to interpret this result as normal/abnormal. GRAN MAT (NEUT) % (test code = 770-8) 91.9 % IMM GRAN % (test code = 7685929406) 0.30 % LYMPH % (test code = 736-9) 5.6 % MONO % (test code = 5905-5) 2.1 % EOS % (test code = 713-8) 0.0 % BASO % (test code = 706-2) 0.1 % GRAN MAT x10^3(ANC) (test code = 2313458297) 7.05 10*3/uL 1.88-7.09 IMM GRAN x10^3 (test code = 7169504261) 0.00-0.06 LYMPH x10^3 (test code = 731-0) 0.43 10*3/uL 1.32-3.29 L MONO x10^3 (test code = 742-7) 0.16 10*3/uL 0.33-0.92 L EOS x10^3 (test code = 711-2) 0.03-0.39 L BASO x10^3 (test code = 704-7) 0.01-0.07 Lab Interpretation (test code = 12714-7) [facility]-17 19:32:09* Test Item Value Reference Range Interpretation Comme nts NA (test code = 1262080047) 139 mmol/L 135-145 K (test code = 9516751629) 3.9 mmol/L 3.5-5.0 CL (test code = 4009318993) 115 mmol/L 98-108 H CO2 TOTAL (test code = 6606594956) 16 mmol/L 23-31 L AGAP (test code = 6117272218) 8 2-16 BUN (test code = 8344586302) 30 mg/dL 7-23 H GLUCOSE (test code = 3846464203) 173 mg/dL 70-110 H CREATININE (test code = 2160-0) 1.69 mg/dL 0.50-1.04 H TOTAL BILI (test code = 6191256384) 0.4 mg/dL 0.1-1.1 CALCIUM (test code = 4066213594) 10.1 mg/dL 8.6-10.6 T PROTEIN (test code = 0344139628) 8.5 g/dL 6.3-8.2 H ALBUMIN (test code = 9617079512) 3.9 g/dL 3.5-5.0 ALK PHOS (test code = 5949728853) 76 U/L 34-122 ALTv (test code = 1742-6) 35 U/L 5-35 AST(SGOT) (test code = 4087788081) 54 U/L 13-40 H eGFR (test code = 99096-3) 34.4 mL/min/1.73m2 CKD-EPI eGFR (2020). Assuming creatinine has been stable day-to-day for at least three months, the eGFR indicates Category G3b (30 - 44 mL/min/1.73 m2) Lab Interpretation (test code = 81895-6) [facility] 15:37:06* Test Item Value Reference Range Interpretation Comme nts Height (test code = 5620197424) 63 in Weight (test code = 4963998306) 140 lbs Systolic BP (test code = 4544898588) 118 mmHg Diastolic BP (test code = 0446500386) 58 mmHg Heart Rate (test code = 1378117986) 78 bpm BSA (test code = 7342102424) 1.66 m2 Ao root diam (test code = 2543617017) 2.90 cm Aortic root (test code = 7763062298) 2.9 cm Ao root annulus (test code = 2836091084) 2.9 cm LVOT diameter (test code = 1910384403) 1.96 cm LVOT area (test code = 2165795511) 3.00 cm2 LA size (test code = 2670298762) 3.2 cm LVIDD (test code = 3307806269) 2.90 cm Left Ventricular End Diastolic Volume by Teichholz Method (test code = 0305235) 32.6 mL IVS (test code = 2140881171) 1.26 cm Interventricular Septum Diastolic Thickness by 2D (test code = 5486378) 1.26 cm LVPWD (test code = 3324584878) 1.23 cm PW (test code = 6066237434) 1.23 cm 0.6-1.1 EF(Teich) (test code = 0124661070) 55.00 % LVIDS (test code = 8708825619) 2.11 cm Left Ventricular End Systolic Volume by Teichholz Method (test code = 5321206) 14.7 mL FS (test code = 0224915904) 27 % EF - 2D (test code = 96823282) 55.00 % LAV(MOD-sp4) (test code = 7646286412) 20.20 mL E wave decelartion time (test code = 5324640893) 0.18 s MV Peak E Barber (test code = 9968618647) 72.8 cm/s MV stenosis pressure 1/2 time (test code = 4758785815) 51.2 ms MV Peak A Barber (test code = 5817429647) 73.4 cm/s E/A ratio (test code = 6924767776) 0.99 ratio MV Prop V (test code = 9634780073) 180.80 cm/s MV E/e' septal (test code = 8620127618) 10.8 cm/s Tapse (test code = 7547483201) 2.08 cm LVOT stroke volume (test code = 9172625893) 73.30 cm3 LVOT peak barber (test code = 4811228967) 125.3 cm/s LVOT mn grad (test code = 1420449559) 3.6 mmHg AV LVOT peak gradient (test code = 6206999367) 6.3 mmHg LVOT peak VTI (test code = 4603873625) 24.3 cm LV V1 mean (test code = 2748944925) 89.60 cm/s Aortic valve mean velocity (test code = 4169434853) 236.9 cm/s Ao peak barber (test code = 2716204690) 333.6 cm/s Ao VTI (test code = 1499985032) 58.2 cm AV area by cont VTI (test code = 0359140485) 1.3 cm2 AV area peak barber (test code = 0741905020) 1.1 cm2 Ao max PG (test code = 3393401884) 44.60 mm[Hg] AV peak gradient (test code = 7726937113) 44.6 mmHg AV valve area (test code = 4779745880) 1.26 cm2 AV mean gradient (test code = 2998558255) 24.9 mmHg Radiology Study observation (narrative) (test code = 54372-5) GARRY (test code = GARRY) Table formatting [...] 2D, color flow Doppler and spectral Doppler. [facility] WITH [id number] 19:09:02* Test Item Value Reference Range Interpretation [...] 33.5 g/dL 31.6-35.1 RDW-SD (test code = 09026-6) 55.2 fL 39.0-49.9 H RDW-CV (test code = 788-0) 13.4 % 12.0-15.5 PLT (test code = 777-3) 142 166-358 L MPV (test code = 56517-7) 11.4 fL 9.5-12.9 NRBC/100 WBC (test code = 9014884397) 0.0 0.0-10.0 NRBC x10^3 (test code = 3884544058) See_Comment [Automated messa ge] The system which generated this result transmitted reference range: 10*3/?L. The reference range was not used to interpret this result as normal/abnormal. GRAN MAT (NEUT) % (test code = 770-8) 62.9 % IMM GRAN % (test code = 9022383707) 0.40 % LYMPH % (test code = 736-9) 27.3 % MONO % (test code = 5905-5) 9.0 % EOS % (test code = 713-8) 0.2 % BASO % (test code = 706-2) 0.2 % GRAN MAT x10^3(ANC) (test code = 5466625207) 3.30 10*3/uL 1.88-7.09 IMM GRAN x10^3 (test code = 3104878710) 0.00-0.06 LYMPH x10^3 (test code = 731-0) 1.43 10*3/uL 1.32-3.29 MONO x10^3 (test code = 742-7) 0.47 10*3/uL 0.33-0.92 EOS x10^3 (test code = 711-2) 0.03-0.39 L BASO x10^3 (test code = 704-7) 0.01-0.07 Lab Interpretation (test code = 54879-0) [facility] [id number] 18:52:52* Test Item Value Reference Range Interpretation Comme nts TROPONIN I (test code = 8958316643) 0.160 ng/mL <=0.034 H GARRY (test code [...] of biotin. Lab Interpretation (test code = 47321-2) [facility] (69530)2023-05-16 18:41:47* Test Item Value Reference Range Interpretation Comme nts NA (test code = 7884911303) 143 mmol/L 135-145 K (test code = 0626800822) 3.9 mmol/L 3.5-5.0 CL (test code = 1329808827) 116 mmol/L 98-108 H CO2 TOTAL (test code = 0873375998) 15 mmol/L 23-31 L AGAP (test code = 7657801823) 12 2-16 BUN (test code = 4351725289) 29 mg/dL 7-23 H GLUCOSE (test code = 7798929184) 104 mg/dL 70-110 CREATININE (test code = 2160-0) 1.90 mg/dL 0.50-1.04 H TOTAL BILI (test code = 7417930313) 0.5 mg/dL 0.1-1.1 CALCIUM (test code = 1717166774) 10.2 mg/dL 8.6-10.6 T PROTEIN (test code = 1339393668) 9.8 g/dL 6.3-8.2 H ALBUMIN (test code = 8328105619) 4.6 g/dL 3.5-5.0 ALK PHOS (test code = 5534237731) 103 U/L 34-122 ALTv (test code = 1742-6) 44 U/L 5-35 H AST(SGOT) (test code = 6586609396) 54 U/L 13-40 H eGFR (test code = 20659-6) 29.9 mL/min/1.73m2 Lab Interpretation (test cod e = 91748-7) [facility]normal [facility]IP[facility], [id number] 18:41:26* Test Item Value Reference Range Interpretation Comme nts LIPASE (test code = 2786530901) 123 U/L 0-220 Lab Interpretation (test cod e = 00114-4) Normal [facility] Venous Blood [id number] 18:29:21 * Test Item Value Reference Range Interpretation Comme nts PH (test code = 3529924969) 7.25 7.32-7.42 L PCO2 BEBA (test code = 4200746761) 40 41-51 L PO2 BEBA (test code = 6586096606) 27 25-40 HCO3 BEBA (test code = 4987603871) 17 24-28 L AC VBE(BEAKER) (test code = 4289666842) -9.3 mEq/L Lab Interpretation (test cod e = 27669-8) [facility]normal [facility] HospitalXR CHEST 1 [id number] 18:03:51HISTORY: Cough and SOB. TECHNIQUE: Portable AP [...] Acute findings could be secondary to viral infection.[facility] HospitalAUBREY, [id number] 08:50:21SPECIMEN NUMBER: [id number] CULTURE, URINE SPECIMEN NUMBER: [id number] SPECIMEN COMMENT: URINE SOURCE: URINE REPORT STATUS: FINAL FINAL REPORT: 05/11/2023 10-50,000 CFU/ML UROGENITAL KARLA PRESENT NO COMMON PATHOGENSCULTNIALL, [id number] 00:00:00* Test Item Value Reference Range Interpretation Comme nts CULTURE, URINE (test code = 25844) SPECIMEN NUMBER: [id number] Delfino Cedeño, [id number] 00:00:00* Test Item Value Reference Range Interpretation Comme nts CULTURE, URINE (test code = 43152) SPECIMEN NUMBER: [id number] Delfino Cedeño [id number] 00:00:00* Test Item Value Reference Range Interpretation Comme nts CULTURE, URINE (test code = 84505) SPECIMEN NUMBER: [id number] Delfino Cedeño, [id number] 00:00:00* Test Item Value Reference Range Interpretation Comme nts CULTURE, URINE (test code = 17357) SPECIMEN NUMBER: [id number] Delfino Cedeño, [id number] 00:00:00* Test Item Value Reference Range Interpretation Comme nts CULTURE, URINE (test code = 99133) SPECIMEN NUMBER: [id number] Delfino Cedeño, [id number] 00:00:00* Test Item Value Reference Range Interpretation Comme nts CULTURE, URINE (test code = 13553) SPECIMEN NUMBER: [id number] Delfino Cedeño, [id number] 00:00:00* Test Item Value Reference Range Interpretation Comme nts CULTURE, URINE (test code = 32856) SPECIMEN NUMBER: [id number] Delfino Cedeño, [id number] 00:00:00* Test Item Value Reference Range Interpretation Comme nts CULTURE, URINE (test code = 08861) SPECIMEN NUMBER: [id number] Delfino Cedeño, [id number] 00:00:00* Test Item Value Reference Range Interpretation Comme nts CULTURE, URINE (test code = 09008) SPECIMEN NUMBER: [id number] Delfino Cedeño, [id number] 00:00:00* Test Item Value Reference Range Interpretation Comme nts CULTURE, URINE (test code = 67405) SPECIMEN NUMBER: [id number] Delfino Cedeño [id number] 00:00:00* Test Item Value Reference Range Interpretation Comme nts CULTURE, URINE (test code = 73485) SPECIMEN NUMBER: [id number] Delfino Cedeño [id number] 00:00:00* Test Item Value Reference Range Interpretation Comme nts CULTURE, URINE (test code = 09385) SPECIMEN NUMBER: [id number] Delfino Cedeño [id number] 00:00:00* Test Item Value Reference Range Interpretation Comme nts CULTURE, URINE (test code = 06338) SPECIMEN NUMBER: [id number] Delfino Cedeño [id number] 00:00:00* Test Item Value Reference Range Interpretation Comme nts CULTURE, URINE (test code = 85376) SPECIMEN NUMBER: [id number] Delfino Cedeño, [id number] 00:00:00* Test Item Value Reference Range Interpretation Comme nts CULTURE, URINE (test code = 43808) SPECIMEN NUMBER: [id number] Delfino Cedeño [id number] 00:00:00* Test Item Value Reference Range Interpretation Comme nts CULTURE, URINE (test code = 55936) SPECIMEN NUMBER: [id number] Delfino Cedeño [id number] 00:00:00* Test Item Value Reference Range Interpretation Comme nts CULTURE, URINE (test code = 86823) SPECIMEN NUMBER: [id number] Delfino Cedeño [id number] 00:00:00* Test Item Value Reference Range Interpretation Comme nts CULTURE, URINE (test code = 62597) SPECIMEN NUMBER: [id number] Delfino Cedeño, [id number] 00:00:00* Test Item Value Reference Range Interpretation Comme nts CULTURE, URINE (test code = 40997) SPECIMEN NUMBER: [id number] Delfino Schumacher AustinVAGINAL PATHOGENS DNA [id number] 14:05:30* Test Item Value Reference Range Interpretation Comme nts DIANNA SPECIES (test code = ) NEGATIVE NEGATIVE G. VAGINALIS (test code = 96350) NEGATIVE NEGATIVE T. VAGINALIS (test code = 78425) NEGATIVE NEGATIVE Note: [facility] VPIII Microbial Identification Testis a DNA probe test intended for use in the detectionand identification of Dianna species, Gardnerellavaginalis and Trichomonas vaginalis nucleic acid. CT/NG, NAAT, [id number] 12:17:23* Test Item Value Reference Range Interpretation Comme nts CHLAMYDIA, NAAT, URINE (test code = 29415) NEGATIVE NEGATIVE Testing is perfo rmed with Epifanio JOSE 6800/8800 systems usingreal-time polymerase chain reaction (PCR) method. A negative result does not exclude low level infection, specimensampling error, or collection error. GONORRHEA, NAAT, URINE (test code = 05075) NEGATIVE NEGATIVE Testing is perfo rmed with Epifanio JOSE 6800/8800 systems usingreal-time polymerase chain reaction (PCR) method. A negative result does not exclude low level infection, specimensampling error, or collection error. UNLESS OTHERWISE INDICATED, ALL TESTING PERFORMED AT [facility] [address] [place] [address] POWER TRANSMISSION ENGINEER: ABBI SHORT M.D. [place] NUMBER [id number] [facility] [place]. [id number] VAGINAL PATHOGENS DNA [id number] 00:00:00* Test Item Value Reference Range Interpretation Comme nts DIANNA SPECIES (test code = ) NEGATIVE G. VAGINALIS (test code = 45356) NEGATIVE T. VAGINALIS (test code = 57933) NEGATIVE Delfino F AustinCT/NG, TMA, [id number] 00:00:00* Test Item Value Reference Range Interpretation Comme nts CHLAMYDIA, NAAT, URINE (test code = 29196) NEGATIVE GONORRHEA, NAAT, URINE (test code = 02073) NEGATIVE Delfino F AustinCT/NG, TMA, [id number] 00:00:00* Test Item Value Reference Range Interpretation Comme nts CHLAMYDIA, NAAT, URINE (test code = 57767) NEGATIVE GONORRHEA, NAAT, URINE (test code = 01803) NEGATIVE Delfino F AustinVAGINAL PATHOGENS DNA [id number] 00:00:00* Test Item Value Reference Range Interpretation Comme nts DIANNA SPECIES (test code = ) NEGATIVE G. VAGINALIS (test code = 15840) NEGATIVE T. VAGINALIS (test code = 14639) NEGATIVE Delfino F AustinCT/NG, TMA, [id number] 00:00:00* Test Item Value Reference Range Interpretation Comme nts CHLAMYDIA, NAAT, URINE (test code = 59961) NEGATIVE GONORRHEA, NAAT, URINE (test code = 50505) NEGATIVE Delfino F AustinVAGINAL PATHOGENS DNA [id number] 00:00:00* Test Item Value Reference Range Interpretation Comme nts DIANNA SPECIES (test code = ) NEGATIVE G. VAGINALIS (test code = 56865) NEGATIVE T. VAGINALIS (test code = 52412) NEGATIVE Delfino F AustinCT/NG, TMA, [id number] 00:00:00* Test Item Value Reference Range Interpretation Comme nts CHLAMYDIA, NAAT, URINE (test code = 61069) NEGATIVE GONORRHEA, NAAT, URINE (test code = 82994) NEGATIVE Delfino F AustinVAGINAL PATHOGENS DNA [id number] 00:00:00* Test Item Value Reference Range Interpretation Comme nts DIANNA SPECIES (test code = ) NEGATIVE G. VAGINALIS (test code = 46172) NEGATIVE T. VAGINALIS (test code = 71408) NEGATIVE Delfino F AustinCT/NG, TMA, [id number] 00:00:00* Test Item Value Reference Range Interpretation Comme nts CHLAMYDIA, NAAT, URINE (test code = 00390) NEGATIVE GONORRHEA, NAAT, URINE (test code = 35628) NEGATIVE Delfino F AustinVAGINAL PATHOGENS DNA [id number] 00:00:00* Test Item Value Reference Range Interpretation Comme nts DIANNA SPECIES (test code = ) NEGATIVE G. VAGINALIS (test code = 87393) NEGATIVE T. VAGINALIS (test code = 29755) NEGATIVE Delfino F AustinCT/NG, TMA, [id number] 00:00:00* Test Item Value Reference Range Interpretation Comme nts CHLAMYDIA, NAAT, URINE (test code = 49192) NEGATIVE GONORRHEA, NAAT, URINE (test code = 51745) NEGATIVE Delfino F AustinVAGINAL PATHOGENS DNA [id number] 00:00:00* Test Item Value Reference Range Interpretation Comme nts DIANNA SPECIES (test code = ) NEGATIVE G. VAGINALIS (test code = 26931) NEGATIVE T. VAGINALIS (test code = 14188) NEGATIVE Delfino Endy AustinCT/NG, TMA, [id number] 00:00:00* Test Item Value Reference Range Interpretation Comme nts CHLAMYDIA, NAAT, URINE (test code = 00012) NEGATIVE GONORRHEA, NAAT, URINE (test code = 90420) NEGATIVE Delfino F [facility] [id number] 00:00:00* Test Item Value Reference Range Interpretation Comme nts DIANNA SPECIES (test code = ) NEGATIVE G. VAGINALIS (test code = 84372) NEGATIVE T. VAGINALIS (test code = 06875) NEGATIVE Delfino F [facility], TMA, [id number] 00:00:00* Test Item Value Reference Range Interpretation Comme nts CHLAMYDIA, NAAT, URINE (test code = 42414) NEGATIVE GONORRHEA, NAAT, URINE (test code = 29562) NEGATIVE Delfnio F [facility] [id number] 00:00:00* Test Item Value Reference Range Interpretation Comme nts DIANNA SPECIES (test code = ) NEGATIVE G. VAGINALIS (test code = 45281) NEGATIVE T. VAGINALIS (test code = ) NEGATIVE Delfino Schumacher [facility], TMA, [id number] 00:00:00* Test Item Value Reference Range Interpretation Comme nts CHLAMYDIA, NAAT, URINE (test code = 64289) NEGATIVE GONORRHEA, NAAT, URINE (test code = 07165) NEGATIVE Delfino F [facility] [id number] 00:00:00* Test Item Value Reference Range Interpretation Comme nts DIANNA SPECIES (test code = ) NEGATIVE G. VAGINALIS (test code = 33130) NEGATIVE T. VAGINALIS (test code = 04495) NEGATIVE Delfino F [facility], TMA, [id number] 00:00:00* Test Item Value Reference Range Interpretation Comme nts CHLAMYDIA, NAAT, URINE (test code = 22625) NEGATIVE GONORRHEA, NAAT, URINE (test code = 48157) NEGATIVE Delfino Endy [facility] [id number] 00:00:00* Test Item Value Reference Range Interpretation Comme nts DIANNA SPECIES (test code = ) NEGATIVE G. VAGINALIS (test code = 19359) NEGATIVE T. VAGINALIS (test code = 22012) NEGATIVE Delfino Schumacher [facility], TMA, [id number] 00:00:00* Test Item Value Reference Range Interpretation Comme nts CHLAMYDIA, NAAT, URINE (test code = 34326) NEGATIVE GONORRHEA, NAAT, URINE (test code = 77852) NEGATIVE Delfino Endy [facility] [id number] 00:00:00* Test Item Value Reference Range Interpretation Comme nts DIANNA SPECIES (test code = ) NEGATIVE G. VAGINALIS (test code = 54976) NEGATIVE T. VAGINALIS (test code = 12548) NEGATIVE Delfino Schumacher [facility], TMA, [id number] 00:00:00* Test Item Value Reference Range Interpretation Comme nts CHLAMYDIA, NAAT, URINE (test code = 28391) NEGATIVE GONORRHEA, NAAT, URINE (test code = 59859) NEGATIVE Delfino Schumacher [facility] [id number] 00:00:00* Test Item Value Reference Range Interpretation Comme nts DIANNA SPECIES (test code = ) NEGATIVE G. VAGINALIS (test code = 48720) NEGATIVE T. VAGINALIS (test code = 80844) NEGATIVE Delfino Schumacher AustinCT/NG, TMA, [id number] 00:00:00* Test Item Value Reference Range Interpretation Comme nts CHLAMYDIA, NAAT, URINE (test code = 17945) NEGATIVE GONORRHEA, NAAT, URINE (test code = 95110) NEGATIVE Delfino Schumacher [facility] [id number] 00:00:00* Test Item Value Reference Range Interpretation Comme nts DIANNA SPECIES (test code = 48414) NEGATIVE G. VAGINALIS (test code = 04296) NEGATIVE T. VAGINALIS (test code = 01204) NEGATIVE Delfino F AustinCT/NG, TMA, [id number] 00:00:00* Test Item Value Reference Range Interpretation Comme nts CHLAMYDIA, NAAT, URINE (test code = 44125) NEGATIVE GONORRHEA, NAAT, URINE (test code = 08095) NEGATIVE Delfino F [facility] [id number] 00:00:00* Test Item Value Reference Range Interpretation Comme nts DIANNA SPECIES (test code = 74512) NEGATIVE G. VAGINALIS (test code = 98005) NEGATIVE T. VAGINALIS (test code = 13391) NEGATIVE Delfino F AustinCT/NG, TMA, [id number] 00:00:00* Test Item Value Reference Range Interpretation Comme nts CHLAMYDIA, NAAT, URINE (test code = 07831) NEGATIVE GONORRHEA, NAAT, URINE (test code = 34603) NEGATIVE Delfino F [facility] [id number] 00:00:00* Test Item Value Reference Range Interpretation Comme nts DIANNA SPECIES (test code = ) NEGATIVE G. VAGINALIS (test code = 80304) NEGATIVE T. VAGINALIS (test code = 06573) NEGATIVE Delfino F [facility]CT/NG, TMA, [id number] 00:00:00* Test Item Value Reference Range Interpretation Comme nts CHLAMYDIA, NAAT, URINE (test code = 84687) NEGATIVE GONORRHEA, NAAT, URINE (test code = 16834) NEGATIVE Delfino F [facility] [id number] 00:00:00* Test Item Value Reference Range Interpretation Comme nts DIANNA SPECIES (test code = ) NEGATIVE G. VAGINALIS (test code = 66291) NEGATIVE T. VAGINALIS (test code = 31013) NEGATIVE Delfino F AustinCT/NG, TMA, [id number] 00:00:00* Test Item Value Reference Range Interpretation Comme nts CHLAMYDIA, NAAT, URINE (test code = 56185) NEGATIVE GONORRHEA, NAAT, URINE (test code = 60476) NEGATIVE Delfino F [facility] [id number] 00:00:00* Test Item Value Reference Range Interpretation Comme nts DIANNA SPECIES (test code = 48071) NEGATIVE G. VAGINALIS (test code = 40795) NEGATIVE T. VAGINALIS (test code = 36783) NEGATIVE Delfino F AustinCT/NG, TMA, [id number] 00:00:00* Test Item Value Reference Range Interpretation Comme nts CHLAMYDIA, NAAT, URINE (test code = 64609) NEGATIVE GONORRHEA, NAAT, URINE (test code = 52483) NEGATIVE Delfino Schumacher [facility] [id number] 00:00:00* Test Item Value Reference Range Interpretation Comme nts DIANNA SPECIES (test code = 19520) NEGATIVE G. VAGINALIS (test code = 61929) NEGATIVE T. VAGINALIS (test code = 58651) NEGATIVE Delfino Schumacher [facility] [id number] 00:00:00* Test Item Value Reference Range Interpretation Comme nts DIANNA SPECIES (test code = ) NEGATIVE G. VAGINALIS (test code = 99855) NEGATIVE T. VAGINALIS (test code = 82527) NEGATIVE Delfino Schumacher [facility]/NG, TMA, [id number] 00:00:00* Test Item Value Reference Range Interpretation Comme nts CHLAMYDIA, NAAT, URINE (test code = 51603) NEGATIVE GONORRHEA, NAAT, URINE (test code = 50199) NEGATIVE Delfino Schumacher [id number] 20:25:19* Test Item Value Reference Range Interpretation Comme nts CALCIUM (test code = 2209) 10.6 MG/DL 8.5-10.5 H [id number] 20:25:10* Test Item Value Reference Range Interpretation Comme nts PHOSPHORUS (test code = 2227) 2.9 MG/DL 2.5-4.5 UNLESS OTHERWISE INDICATED, ALL TESTING PERFORMED AT [facility] [address] [place] [address] POWER TRANSMISSION ENGINEER: ABBI SHORT M.D. CLIA NUMBER [id number] [facility] [place] [place]. [id number] CALCIUM, [id number] 09:33:19* Test Item Value Reference Range Interpretation Comme nts CALCIUM, IONIZED (test code = 61429) 5.50 MG/DL 4.70-5.90 INTACT [id number] 09:28:17* Test Item Value Reference Range Interpretation Comme nts INTACT PTH (test code = 5005) 60 PG/ML 15-65 INTACT [id number] 00:00:00* Test Item Value Reference Range Interpretation Comme nts INTACT PTH (test code = 5005) 60 PG/ML Delfino Schumacher Austin[facility], [id number] 00:00:00* Test Item Value Reference Range Interpretation Comme nts CALCIUM, IONIZED (test code = 46941) 5.50 MG/DL Delfino Schumacher [id number] 00:00:00* Test Item Value Reference Range Interpretation Comme nts CALCIUM (test code = 2209) 10.6 MG/DL Delfino Schumacher [id number] 00:00:00* Test Item Value Reference Range Interpretation Comme nts CALCIUM (test code = 2209) 10.6 MG/DL Delfino Schumacher [id number] 00:00:00* Test Item Value Reference Range Interpretation Comme nts PHOSPHORUS (test code = 2227) 2.9 MG/DL Delfino Schumacher AustinIN[facility]CT [id number] 00:00:00* Test Item Value Reference Range Interpretation Comme nts INTACT PTH (test code = 5005) 60 PG/ML Delfino Schumacher AustinCAL[facility], [id number] 00:00:00* Test Item Value Reference Range Interpretation Comme nts CALCIUM, IONIZED (test code = 37840) 5.50 MG/DL Delfino Schumacher [id number] 00:00:00* Test Item Value Reference Range Interpretation Comme nts CALCIUM (test code = 2209) 10.6 MG/DL Delfino Schumacher [id number] 00:00:00* Test Item Value Reference Range Interpretation Comme nts PHOSPHORUS (test code = 2227) 2.9 MG/DL Delfino Schumacher [id number] 00:00:00* Test Item Value Reference Range Interpretation Comme nts PHOSPHORUS (test code = 2227) 2.9 MG/DL Delfino Schumacher AustinINTACT [id number] 00:00:00* Test Item Value Reference Range Interpretation Comme nts INTACT PTH (test code = 5005) 60 PG/ML Delfino Schumacher AustinCALCIUM, [id number] 00:00:00* Test Item Value Reference Range Interpretation Comme nts CALCIUM, IONIZED (test code = 01924) 5.50 MG/DL Delfino Schumacher [id number] 00:00:00* Test Item Value Reference Range Interpretation Comme nts CALCIUM (test code = 2209) 10.6 MG/DL Delfino Schumacher [id number] 00:00:00* Test Item Value Reference Range Interpretation Comme nts PHOSPHORUS (test code = 2227) 2.9 MG/DL Delfino Schumacher AustinINTACT [id number] 00:00:00* Test Item Value Reference Range Interpretation Comme nts INTACT PTH (test code = 5005) 60 PG/ML Delfino Schumacher AustinCALCIUM, [id number] 00:00:00* Test Item Value Reference Range Interpretation Comme nts CALCIUM, IONIZED (test code = 61197) 5.50 MG/DL Delfino Schumacher [id number] 00:00:00* Test Item Value Reference Range Interpretation Comme nts CALCIUM (test code = 2209) 10.6 MG/DL Delfino Schumacher [id number] 00:00:00* Test Item Value Reference Range Interpretation Comme nts PHOSPHORUS (test code = 2227) 2.9 MG/DL Delfino Schumacher AustinINTACT [id number] 00:00:00* Test Item Value Reference Range Interpretation Comme nts INTACT PTH (test code = 5005) 60 PG/ML Delfino OrtaCALCIUM, [id number] 00:00:00* Test Item Value Reference Range Interpretation Comme nts CALCIUM, IONIZED (test code = 07323) 5.50 MG/DL Delfino Schumacher [id number] 00:00:00* Test Item Value Reference Range Interpretation Comme nts CALCIUM (test code = 2209) 10.6 MG/DL Delfino Schumacher [id number] 00:00:00* Test Item Value Reference Range Interpretation Comme nts PHOSPHORUS (test code = 2227) 2.9 MG/DL Delfino Schumacher [facility]IN[facility] [id number] 00:00:00* Test Item Value Reference Range Interpretation Comme nts INTACT PTH (test code = 5005) 60 PG/ML Delfino Schumacher AustinCALCIUM, [id number] 00:00:00* Test Item Value Reference Range Interpretation Comme nts CALCIUM, IONIZED (test code = 28848) 5.50 MG/DL Delfino Schumacher [id number] 00:00:00* Test Item Value Reference Range Interpretation Comme nts CALCIUM (test code = 2209) 10.6 MG/DL Delfino Schumacher [id number] 00:00:00* Test Item Value Reference Range Interpretation Comme nts PHOSPHORUS (test code = 2227) 2.9 MG/DL Delfino Schumacher AustinINTACT [id number] 00:00:00* Test Item Value Reference Range Interpretation Comme nts INTACT PTH (test code = 5005) 60 PG/ML Delfino Schumacher AustinCALCIUM, [id number] 00:00:00* Test Item Value Reference Range Interpretation Comme nts CALCIUM, IONIZED (test code = 87665) 5.50 MG/DL Delfino Schumacher [id number] 00:00:00* Test Item Value Reference Range Interpretation Comme nts CALCIUM (test code = 2209) 10.6 MG/DL Delfino Schumacher [id number] 00:00:00* Test Item Value Reference Range Interpretation Comme nts PHOSPHORUS (test code = 2227) 2.9 MG/DL Delfino Schumacher AustinINTACT [id number] 00:00:00* Test Item Value Reference Range Interpretation Comme nts INTACT PTH (test code = 5005) 60 PG/ML Delfino Schumacher AustinCALCIUM, [id number] 00:00:00* Test Item Value Reference Range Interpretation Comme nts CALCIUM, IONIZED (test code = 66424) 5.50 MG/DL Delfino Schumacher [id number] 00:00:00* Test Item Value Reference Range Interpretation Comme nts CALCIUM (test code = 2209) 10.6 MG/DL Delfino Schumacher [id number] 00:00:00* Test Item Value Reference Range Interpretation Comme nts PHOSPHORUS (test code = 2227) 2.9 MG/DL Delfino Schumacher AustinINTACT [id number] 00:00:00* Test Item Value Reference Range Interpretation Comme nts INTACT PTH (test code = 5005) 60 PG/ML Delfino Schumacher AustinCALCIUM, [id number] 00:00:00* Test Item Value Reference Range Interpretation Comme nts CALCIUM, IONIZED (test code = 36957) 5.50 MG/DL Delfino Schumacher [id number] 00:00:00* Test Item Value Reference Range Interpretation Comme nts CALCIUM (test code = 2209) 10.6 MG/DL Delfino Schumacher [id number] 00:00:00* Test Item Value Reference Range Interpretation Comme nts PHOSPHORUS (test code = 2227) 2.9 MG/DL Delfino Schumacher AustinINTACT [id number] 00:00:00* Test Item Value Reference Range Interpretation Comme nts INTACT PTH (test code = 5005) 60 PG/ML Delfino Schumacher AustinCALCIUM, [id number] 00:00:00* Test Item Value Reference Range Interpretation Comme nts CALCIUM, IONIZED (test code = 11180) 5.50 MG/DL Delfino Schumacher [id number] 00:00:00* Test Item Value Reference Range Interpretation Comme nts CALCIUM (test code = 2209) 10.6 MG/DL Delfino Schumacher [id number] 00:00:00* Test Item Value Reference Range Interpretation Comme nts PHOSPHORUS (test code = 2227) 2.9 MG/DL Delfino Schumacher AustinINTACT [id number] 00:00:00* Test Item Value Reference Range Interpretation Comme nts INTACT PTH (test code = 5005) 60 PG/ML Delfino Schumacher AustinCALCIUM, [id number] 00:00:00* Test Item Value Reference Range Interpretation Comme nts CALCIUM, IONIZED (test code = 31486) 5.50 MG/DL Delfino Schumacher [id number] 00:00:00* Test Item Value Reference Range Interpretation Comme nts CALCIUM (test code = 2209) 10.6 MG/DL Delfino Schumacher [id number] 00:00:00* Test Item Value Reference Range Interpretation Comme nts PHOSPHORUS (test code = 2227) 2.9 MG/DL Delfino Schumacher AustinINTACT [id number] 00:00:00* Test Item Value Reference Range Interpretation Comme nts INTACT PTH (test code = 5005) 60 PG/ML Deflino Schumacher AustinCALCIUM, [id number] 00:00:00* Test Item Value Reference Range Interpretation Comme nts CALCIUM, IONIZED (test code = 08881) 5.50 MG/DL Delfino Schumacher [id number] 00:00:00* Test Item Value Reference Range Interpretation Comme nts CALCIUM (test code = 2209) 10.6 MG/DL Delfino Schumacher [id number] 00:00:00* Test Item Value Reference Range Interpretation Comme nts PHOSPHORUS (test code = 2227) 2.9 MG/DL Delfino Schumacher AustinINTACT [id number] 00:00:00* Test Item Value Reference Range Interpretation Comme nts INTACT PTH (test code = 5005) 60 PG/ML Delfino Schumacher AustinCALCIUM, [id number] 00:00:00* Test Item Value Reference Range Interpretation Comme nts CALCIUM, IONIZED (test code = 07331) 5.50 MG/DL Delfino Schumacher [id number] 00:00:00* Test Item Value Reference Range Interpretation Comme nts CALCIUM (test code = 2209) 10.6 MG/DL Delfino Schumacher [id number] 00:00:00* Test Item Value Reference Range Interpretation Comme nts PHOSPHORUS (test code = 2227) 2.9 MG/DL Delfino Schumacher AustinINTACT [id number] 00:00:00* Test Item Value Reference Range Interpretation Comme nts INTACT PTH (test code = 5005) 60 PG/ML Delfino Schumacher AustinCALCIUM, [id number] 00:00:00* Test Item Value Reference Range Interpretation Comme nts CALCIUM, IONIZED (test code = 55548) 5.50 MG/DL Delfino Schumacher [id number] 00:00:00* Test Item Value Reference Range Interpretation Comme nts CALCIUM (test code = 2209) 10.6 MG/DL Delfino Schumacher LowxlbZQJTITASSO4628-28-85 00:00:00* Test Item Value Reference Range Interpretation Comme nts PHOSPHORUS (test code = 2227) 2.9 MG/DL Delfino Schumacher AustinINTACT [id number] 00:00:00* Test Item Value Reference Range Interpretation Comme nts INTACT PTH (test code = 5005) 60 PG/ML Delfino Schumacher AustinINTACT [id number] 00:00:00* Test Item Value Reference Range Interpretation Comme nts INTACT PTH (test code = 5005) 60 PG/ML Delfino Schumacher AustinCALCIUM, [id number] 00:00:00* Test Item Value Reference Range Interpretation Comme nts CALCIUM, IONIZED (test code = 35096) 5.50 MG/DL Delfino Schumacher [id number] 00:00:00* Test Item Value Reference Range Interpretation Comme nts CALCIUM (test code = 2209) 10.6 MG/DL Delfino Schumacher ErsasrKXEDQGKHJY8062-76-69 00:00:00* Test Item Value Reference Range Interpretation Comme nts PHOSPHORUS (test code = 2227) 2.9 MG/DL Delfino Schumacher AustinINTACT [id number] 00:00:00* Test Item Value Reference Range Interpretation Comme nts INTACT PTH (test code = 5005) 60 PG/ML Delfino Schumacher AustinCALCIUM, [id number] 00:00:00* Test Item Value Reference Range Interpretation Comme nts CALCIUM, IONIZED (test code = 22144) 5.50 MG/DL Delfino Schumacher [id number] 00:00:00* Test Item Value Reference Range Interpretation Comme nts CALCIUM (test code = 2209) 10.6 MG/DL Delfino Schumacher [id number] 00:00:00* Test Item Value Reference Range Interpretation Comme nts PHOSPHORUS (test code = 2227) 2.9 MG/DL Delfino Schumacher AustinINTACT [id number] 00:00:00* Test Item Value Reference Range Interpretation Comme nts INTACT PTH (test code = 5005) 60 PG/ML Delfino OrtaCALCIUM, [id number] 00:00:00* Test Item Value Reference Range Interpretation Comme nts CALCIUM, IONIZED (test code = 16096) 5.50 MG/DL Delfino Schumacher AustinCALCIUM, [id number] 00:00:00* Test Item Value Reference Range Interpretation Comme nts CALCIUM, IONIZED (test code = 54215) 5.50 MG/DL Delfino Schumacher [id number] 00:00:00* Test Item Value Reference Range Interpretation Comme nts CALCIUM (test code = 2209) 10.6 MG/DL Delfino Schumacher RsznjwCEJHPZWWCM7063-35-16 00:00:00* Test Item Value Reference Range Interpretation Comme nts PHOSPHORUS (test code = 2227) 2.9 MG/DL Delfino Schumacher AustinINTACT [id number] 00:00:00* Test Item Value Reference Range Interpretation Comme nts INTACT PTH (test code = 5005) 60 PG/ML Delfino OrtaCALCIUM, [id number] 00:00:00* Test Item Value Reference Range Interpretation Comme nts CALCIUM, IONIZED (test code = 42754) 5.50 MG/DL Delfino OrtaDrcrdqPWNGJCQ5272-24-98 00:00:00* Test Item Value Reference Range Interpretation Comme nts CALCIUM (test code = 2209) 10.6 MG/DL Delfino OrtaJbewwzLWHXXYUCPG3740-60-62 00:00:00* Test Item Value Reference Range Interpretation Comme nts PHOSPHORUS (test code = 2227) 2.9 MG/DL Delfino SarmientoLTNIALL, [id number] 09:25:56SPECIMEN NUMBER: [id number] CULTURE, URINE SPECIMEN NUMBER: [id number] SPECIMEN COMMENT: URINE SOURCE: URINE REPORT STATUS: FINAL FINAL REPORT: 03/09/2023 10-50,000 CFU/ML UROGENITAL KARLA PRESENT NO COMMON PATHOGENSCULTURE, [id number] 00:00:00* Test Item Value Reference Range Interpretation Comme nts CULTURE, URINE (test code = 66024) SPECIMEN NUMBER: [id number] Delfino OrtaCULTURE, [id number] 00:00:00* Test Item Value Reference Range Interpretation Comme nts CULTURE, URINE (test code = 27089) SPECIMEN NUMBER: [id number] Delfino OrtaCULTURE, [id number] 00:00:00* Test Item Value Reference Range Interpretation Comme nts CULTURE, URINE (test code = 65230) SPECIMEN NUMBER: [id number] Delfino OrtaCULTURE, [id number] 00:00:00* Test Item Value Reference Range Interpretation Comme nts CULTURE, URINE (test code = 28822) SPECIMEN NUMBER: [id number] Delfino OrtaCULTURE, [id number] 00:00:00* Test Item Value Reference Range Interpretation Comme nts CULTURE, URINE (test code = 76506) SPECIMEN NUMBER: [id number] Delfino OrtaCULTURE, [id number] 00:00:00* Test Item Value Reference Range Interpretation Comme nts CULTURE, URINE (test code = 47394) SPECIMEN NUMBER: [id number] Delfino Cedeño [id number] 00:00:00* Test Item Value Reference Range Interpretation Comme nts CULTURE, URINE (test code = 47565) SPECIMEN NUMBER: [id number] Delfino Cedeño [id number] 00:00:00* Test Item Value Reference Range Interpretation Comme nts CULTURE, URINE (test code = 42042) SPECIMEN NUMBER: [id number] Delfino Cedeño [id number] 00:00:00* Test Item Value Reference Range Interpretation Comme nts CULTURE, URINE (test code = 20065) SPECIMEN NUMBER: [id number] [id number] 00:00:00* Test Item Value Reference Range Interpretation Comme nts CULTURE, URINE (test code = 25795) SPECIMEN NUMBER: [id number] Delfino Cedeño [id number] 00:00:00* Test Item Value Reference Range Interpretation Comme nts CULTURE, URINE (test code = 01648) SPECIMEN NUMBER: [id number] Delfino Cedeño [id number] 00:00:00* Test Item Value Reference Range Interpretation Comme nts CULTURE, URINE (test code = 00995) SPECIMEN NUMBER: [id number] Delfino Cedeño [id number] 00:00:00* Test Item Value Reference Range Interpretation Comme nts CULTURE, URINE (test code = 56747) SPECIMEN NUMBER: [id number] Delfino Cedeño [id number] 00:00:00* Test Item Value Reference Range Interpretation Comme nts CULTURE, URINE (test code = 08258) SPECIMEN NUMBER: [id number] Delfino Cedeño [id number] 00:00:00* Test Item Value Reference Range Interpretation Comme nts CULTURE, URINE (test code = 29940) SPECIMEN NUMBER: [id number] Delfino Cedeño [id number] 00:00:00* Test Item Value Reference Range Interpretation Comme nts CULTURE, URINE (test code = 82525) SPECIMEN NUMBER: [id number] Delfino Cedeño [id number] 00:00:00* Test Item Value Reference Range Interpretation Comme nts CULTURE, URINE (test code = 41161) SPECIMEN NUMBER: [id number] Delfino Cedeño, [id number] 00:00:00* Test Item Value Reference Range Interpretation Comme nts CULTURE, URINE (test code = 00205) SPECIMEN NUMBER: [id number] Delfino Cedeño, [id number] 00:00:00* Test Item Value Reference Range Interpretation Comme nts CULTURE, URINE (test code = 03192) SPECIMEN NUMBER: [id number] Delfino OrtaCOMPREHENSIVE METABOLIC [id number] 04:45:25* Test Item Value Reference Range Interpretation Comme nts GLUCOSE (test code = 7) 87 MG/DL 70-99 BUN (test code = 2207) 32 MG/DL 8-23 H CREATININE (test code = 2214) 1.39 MG/DL 0.60-1.30 H eGFR (2020 CKD-EPI) (test co de = 96240) 43 ML/MIN/1.73 >60 L CALC BUN/CREAT (test [...] code = 2219) 32 U/L 5-40 LIPID [id number] 04:45:25* Test Item Value Reference Range Interpretation [...] SPECIMENS. FOR MOREINFORMATION, SEE CLIENT ANNOUNCEMENT AT [email or web address] RISK RATIO LDL/HDL (test code = 2238) 0.58 RATIO <3.22 UNLESS OTHERW ISE INDICATED, ALL TESTING PERFORMED AT [facility] [address] [place] [address] POWER TRANSMISSION ENGINEER: ABBI SHORT M.D. [place] NUMBER [id number] [facility] [place]. [id number] COMPREHENSIVE METABOLIC [id number] 00:00:00* Test Item Value Reference Range Interpretation Comme nts GLUCOSE (test code = 2217) 87 MG/DL BUN (test code = 2208) 32 MG/DL CREATININE (test code = 2214) 1.39 MG/DL eGFR (2020 CKD-EPI) (test co de = 16474) 43 ML/MIN/1.73 CALC BUN/CREAT (test code = [...] code = 2219) 32 U/L Delfino OrtaLIPID [id number] 00:00:00* Test Item Value Reference Range Interpretation Comme nts CHOLESTEROL (test code = 2210) 187 MG/DL TRIGLYCERIDES (test code = 2232) 58 MG/DL HDL CHOLESTEROL (test code = 2220) 110 MG/DL CALC LDL CHOL (test code = 2237) 64 MG/DL RISK RATIO LDL/HDL (test cod e = 2238) 0.58 RATIO Delfino OrtaLIPID [id number] 00:00:00* Test Item Value Reference Range Interpretation Comme nts CHOLESTEROL (test code = 2210) 187 MG/DL TRIGLYCERIDES (test code = 2232) 58 MG/DL HDL CHOLESTEROL (test code = 2220) 110 MG/DL CALC LDL CHOL (test code = 2237) 64 MG/DL RISK RATIO LDL/HDL (test cod e = 2238) 0.58 RATIO Delfino OrtaCOMPREHENSIVE METABOLIC [id number] 00:00:00* Test Item Value Reference Range Interpretation Comme nts GLUCOSE (test code = 2217) 87 MG/DL BUN (test code = 2208) 32 MG/DL CREATININE (test code = 2214) 1.39 MG/DL eGFR (2020 CKD-EPI) (test co de = 02249) 43 ML/MIN/1.73 CALC BUN/CREAT (test code = [...] code = 2219) 32 U/L Delfino OrtaLIPID [id number] 00:00:00* Test Item Value Reference Range Interpretation Comme nts CHOLESTEROL (test code = 2210) 187 MG/DL TRIGLYCERIDES (test code = 2232) 58 MG/DL HDL CHOLESTEROL (test code = 2220) 110 MG/DL CALC LDL CHOL (test code = 2237) 64 MG/DL RISK RATIO LDL/HDL (test cod e = 2238) 0.58 RATIO Delfino Schumacher AustinCOMPREHENSIVE METABOLIC [id number] 00:00:00* Test Item Value Reference Range Interpretation Comme nts GLUCOSE (test code = 2217) 87 MG/DL BUN (test code = 2208) 32 MG/DL CREATININE (test code = 2214) 1.39 MG/DL eGFR (2020 CKD-EPI) (test co de = 56859) 43 ML/MIN/1.73 CALC BUN/CREAT (test code = [...] code = 2219) 32 U/L Delfino OrtaLIPID [id number] 00:00:00* Test Item Value Reference Range Interpretation Comme nts CHOLESTEROL (test code = 2210) 187 MG/DL TRIGLYCERIDES (test code = 2232) 58 MG/DL HDL CHOLESTEROL (test code = 2220) 110 MG/DL CALC LDL CHOL (test code = 2237) 64 MG/DL RISK RATIO LDL/HDL (test cod e = 2238) 0.58 RATIO Delfino Schumacher AustinCOMPREHENSIVE METABOLIC [id number] 00:00:00* Test Item Value Reference Range Interpretation Comme nts GLUCOSE (test code = 2217) 87 MG/DL BUN (test code = 2208) 32 MG/DL CREATININE (test code = 2214) 1.39 MG/DL eGFR (2020 CKD-EPI) (test co de = 64426) 43 ML/MIN/1.73 CALC BUN/CREAT (test code = [...] code = 2219) 32 U/L Delfino Schumacher WalesLIPID [id number] 00:00:00* Test Item Value Reference Range Interpretation Comme nts CHOLESTEROL (test code = 2210) 187 MG/DL TRIGLYCERIDES (test code = 2232) 58 MG/DL HDL CHOLESTEROL (test code = 2220) 110 MG/DL CALC LDL CHOL (test code = 2237) 64 MG/DL RISK RATIO LDL/HDL (test cod e = 2238) 0.58 RATIO Delfino Endy YouCOMPREHENSIVE METABOLIC [id number] 00:00:00* Test Item Value Reference Range Interpretation Comme nts GLUCOSE (test code = 2217) 87 MG/DL BUN (test code = 2208) 32 MG/DL CREATININE (test code = 2214) 1.39 MG/DL eGFR (2020 CKD-EPI) (test co de = 07775) 43 ML/MIN/1.73 CALC BUN/CREAT (test code = [...] code = 2219) 32 U/L Delfino OrtaLIPID [id number] 00:00:00* Test Item Value Reference Range Interpretation Comme nts CHOLESTEROL (test code = 2210) 187 MG/DL TRIGLYCERIDES (test code = 2232) 58 MG/DL HDL CHOLESTEROL (test code = 2220) 110 MG/DL CALC LDL CHOL (test code = 2237) 64 MG/DL RISK RATIO LDL/HDL (test cod e = 2238) 0.58 RATIO Delfino OrtaCOMPREHENSIVE METABOLIC [id number] 00:00:00* Test Item Value Reference Range Interpretation Comme nts GLUCOSE (test code = 2217) 87 MG/DL BUN (test code = 2208) 32 MG/DL CREATININE (test code = 2214) 1.39 MG/DL eGFR (2020 CKD-EPI) (test co de = 45783) 43 ML/MIN/1.73 CALC BUN/CREAT (test code = [...] code = 2219) 32 U/L Delfino OrtaLIPID [id number] 00:00:00* Test Item Value Reference Range Interpretation Comme nts CHOLESTEROL (test code = 2210) 187 MG/DL TRIGLYCERIDES (test code = 2232) 58 MG/DL HDL CHOLESTEROL (test code = 2220) 110 MG/DL CALC LDL CHOL (test code = 2237) 64 MG/DL RISK RATIO LDL/HDL (test cod e = 2238) 0.58 RATIO Delfino OrtaCOMPREHENSIVE METABOLIC [id number] 00:00:00* Test Item Value Reference Range Interpretation Comme nts GLUCOSE (test code = 2217) 87 MG/DL BUN (test code = 2208) 32 MG/DL CREATININE (test code = 2214) 1.39 MG/DL eGFR (2020 CKD-EPI) (test co de = 33857) 43 ML/MIN/1.73 CALC BUN/CREAT (test code = [...] code = 2219) 32 U/L Delfino OrtaLIPID [id number] 00:00:00* Test Item Value Reference Range Interpretation Comme nts CHOLESTEROL (test code = 2210) 187 MG/DL TRIGLYCERIDES (test code = 2232) 58 MG/DL HDL CHOLESTEROL (test code = 2220) 110 MG/DL CALC LDL CHOL (test code = 2237) 64 MG/DL RISK RATIO LDL/HDL (test cod e = 2238) 0.58 RATIO Delfino OrtaCOMPREHENSIVE METABOLIC [id number] 00:00:00* Test Item Value Reference Range Interpretation Comme nts GLUCOSE (test code = 2217) 87 MG/DL BUN (test code = 2208) 32 MG/DL CREATININE (test code = 2214) 1.39 MG/DL eGFR (2020 CKD-EPI) (test co de = 46231) 43 ML/MIN/1.73 CALC BUN/CREAT (test code = [...] code = 2219) 32 U/L Delfino OrtaLIPID [id number] 00:00:00* Test Item Value Reference Range Interpretation Comme nts CHOLESTEROL (test code = 2210) 187 MG/DL TRIGLYCERIDES (test code = 2232) 58 MG/DL HDL CHOLESTEROL (test code = 2220) 110 MG/DL CALC LDL CHOL (test code = 2237) 64 MG/DL RISK RATIO LDL/HDL (test cod e = 2238) 0.58 RATIO Delfino OrtaCOMPREHENSIVE METABOLIC [id number] 00:00:00* Test Item Value Reference Range Interpretation Comme nts GLUCOSE (test code = 2217) 87 MG/DL BUN (test code = 2208) 32 MG/DL CREATININE (test code = 2214) 1.39 MG/DL eGFR (2020 CKD-EPI) (test co de = 52262) 43 ML/MIN/1.73 CALC BUN/CREAT (test code = [...] code = 2219) 32 U/L Delfino Schumacher WalesLIPID [id number] 00:00:00* Test Item Value Reference Range Interpretation Comme nts CHOLESTEROL (test code = 2210) 187 MG/DL TRIGLYCERIDES (test code = 2232) 58 MG/DL HDL CHOLESTEROL (test code = 2220) 110 MG/DL CALC LDL CHOL (test code = 2237) 64 MG/DL RISK RATIO LDL/HDL (test cod e = 2238) 0.58 RATIO Delfino Schumacher YouCOMPREHENSIVE METABOLIC [id number] 00:00:00* Test Item Value Reference Range Interpretation Comme nts GLUCOSE (test code = 2217) 87 MG/DL BUN (test code = 2208) 32 MG/DL CREATININE (test code = 2214) 1.39 MG/DL eGFR (2020 CKD-EPI) (test co de = 26348) 43 ML/MIN/1.73 CALC BUN/CREAT (test code = [...] = 2219) 32 U/L Delfino Schumacher AustinLIPID [id number] 00:00:00* Test Item Value Reference Range Interpretation Comme nts CHOLESTEROL (test code = 2210) 187 MG/DL TRIGLYCERIDES (test code = 2232) 58 MG/DL HDL CHOLESTEROL (test code = 2220) 110 MG/DL CALC LDL CHOL (test code = 2237) 64 MG/DL RISK RATIO LDL/HDL (test cod e = 2238) 0.58 RATIO Delfino OrtaCOMPREHENSIVE METABOLIC [id number] 00:00:00* Test Item Value Reference Range Interpretation Comme nts GLUCOSE (test code = 2217) 87 MG/DL BUN (test code = 2208) 32 MG/DL CREATININE (test code = 2214) 1.39 MG/DL eGFR (2020 CKD-EPI) (test co de = 99104) 43 ML/MIN/1.73 CALC BUN/CREAT (test code = [...] = 2219) 32 U/L Delfino Schumacher AustinLIPID [id number] 00:00:00* Test Item Value Reference Range Interpretation Comme nts CHOLESTEROL (test code = 2210) 187 MG/DL TRIGLYCERIDES (test code = 2232) 58 MG/DL HDL CHOLESTEROL (test code = 2220) 110 MG/DL CALC LDL CHOL (test code = 2237) 64 MG/DL RISK RATIO LDL/HDL (test cod e = 2238) 0.58 RATIO Delfino OrtaCOMPREHENSIVE METABOLIC [id number] 00:00:00* Test Item Value Reference Range Interpretation Comme nts GLUCOSE (test code = 2217) 87 MG/DL BUN (test code = 2208) 32 MG/DL CREATININE (test code = 2214) 1.39 MG/DL eGFR (2020 CKD-EPI) (test co de = 87243) 43 ML/MIN/1.73 CALC BUN/CREAT (test code = [...] = 2219) 32 U/L Delfino Schumacher AustinLIPID [id number] 00:00:00* Test Item Value Reference Range Interpretation Comme nts CHOLESTEROL (test code = 2210) 187 MG/DL TRIGLYCERIDES (test code = 2232) 58 MG/DL HDL CHOLESTEROL (test code = 2220) 110 MG/DL CALC LDL CHOL (test code = 2237) 64 MG/DL RISK RATIO LDL/HDL (test cod e = 2238) 0.58 RATIO Delfino OrtaCOMPREHENSIVE METABOLIC [id number] 00:00:00* Test Item Value Reference Range Interpretation Comme nts GLUCOSE (test code = 2217) 87 MG/DL BUN (test code = 2208) 32 MG/DL CREATININE (test code = 2214) 1.39 MG/DL eGFR (2020 CKD-EPI) (test co de = 15439) 43 ML/MIN/1.73 CALC BUN/CREAT (test code = [...] code = 2219) 32 U/L Delfino Endy WalesLIPID [id number] 00:00:00* Test Item Value Reference Range Interpretation Comme nts CHOLESTEROL (test code = 2210) 187 MG/DL TRIGLYCERIDES (test code = 2232) 58 MG/DL HDL CHOLESTEROL (test code = 2220) 110 MG/DL CALC LDL CHOL (test code = 2237) 64 MG/DL RISK RATIO LDL/HDL (test cod e = 2238) 0.58 RATIO Delfino Schumacher YouCOMPREHENSIVE METABOLIC [id number] 00:00:00* Test Item Value Reference Range Interpretation Comme nts GLUCOSE (test code = 2217) 87 MG/DL BUN (test code = 2208) 32 MG/DL CREATININE (test code = 2214) 1.39 MG/DL eGFR (2020 CKD-EPI) (test co de = 11678) 43 ML/MIN/1.73 CALC BUN/CREAT (test code = [...] code = 2219) 32 U/L Delfino OrtaLIPID [id number] 00:00:00* Test Item Value Reference Range Interpretation Comme nts CHOLESTEROL (test code = 2210) 187 MG/DL TRIGLYCERIDES (test code = 2232) 58 MG/DL HDL CHOLESTEROL (test code = 2220) 110 MG/DL CALC LDL CHOL (test code = 2237) 64 MG/DL RISK RATIO LDL/HDL (test cod e = 2238) 0.58 RATIO Delfino OrtaCOMPREHENSIVE METABOLIC [id number] 00:00:00* Test Item Value Reference Range Interpretation Comme nts GLUCOSE (test code = 2217) 87 MG/DL BUN (test code = 2208) 32 MG/DL CREATININE (test code = 2214) 1.39 MG/DL eGFR (2020 CKD-EPI) (test co de = 76579) 43 ML/MIN/1.73 CALC BUN/CREAT (test code = [...] code = 2219) 32 U/L Delfino OrtaLIPID [id number] 00:00:00* Test Item Value Reference Range Interpretation Comme nts CHOLESTEROL (test code = 2210) 187 MG/DL TRIGLYCERIDES (test code = 2232) 58 MG/DL HDL CHOLESTEROL (test code = 2220) 110 MG/DL CALC LDL CHOL (test code = 2237) 64 MG/DL RISK RATIO LDL/HDL (test cod e = 2238) 0.58 RATIO Delfino OrtaCOMPREHENSIVE METABOLIC [id number] 00:00:00* Test Item Value Reference Range Interpretation Comme nts GLUCOSE (test code = 2217) 87 MG/DL BUN (test code = 2208) 32 MG/DL CREATININE (test code = 2214) 1.39 MG/DL eGFR (2020 CKD-EPI) (test co de = 09146) 43 ML/MIN/1.73 CALC BUN/CREAT (test code = [...] = 2219) 32 U/L Delfino Schumacher AustinLIPID [id number] 00:00:00* Test Item Value Reference Range Interpretation Comme nts CHOLESTEROL (test code = 2210) 187 MG/DL TRIGLYCERIDES (test code = 2232) 58 MG/DL HDL CHOLESTEROL (test code = 2220) 110 MG/DL CALC LDL CHOL (test code = 2237) 64 MG/DL RISK RATIO LDL/HDL (test cod e = 2238) 0.58 RATIO Delfino OrtaCOMPREHENSIVE METABOLIC [id number] 00:00:00* Test Item Value Reference Range Interpretation Comme nts GLUCOSE (test code = 2217) 87 MG/DL BUN (test code = 2208) 32 MG/DL CREATININE (test code = 2214) 1.39 MG/DL eGFR (2020 CKD-EPI) (test co de = 49117) 43 ML/MIN/1.73 CALC BUN/CREAT (test code = [...] = 2219) 32 U/L Delfino OrtaCOMPREHENSIVE METABOLIC [id number] 00:00:00* Test Item Value Reference Range Interpretation Comme nts GLUCOSE (test code = 2217) 87 MG/DL BUN (test code = 2208) 32 MG/DL CREATININE (test code = 2214) 1.39 MG/DL eGFR (2020 CKD-EPI) (test co de = 33158) 43 ML/MIN/1.73 CALC BUN/CREAT (test code = [...] code = 2219) 32 U/L Delfino OrtaLIPID [id number] 00:00:00* Test Item Value Reference Range Interpretation Comme nts CHOLESTEROL (test code = 2210) 187 MG/DL TRIGLYCERIDES (test code = 2232) 58 MG/DL HDL CHOLESTEROL (test code = 2220) 110 MG/DL CALC LDL CHOL (test code = 2237) 64 MG/DL RISK RATIO LDL/HDL (test cod e = 2238) 0.58 RATIO Delfino OrtaCOMPREHENSIVE METABOLIC [id number] 00:00:00* Test Item Value Reference Range Interpretation Comme nts GLUCOSE (test code = 2217) 87 MG/DL BUN (test code = 2208) 32 MG/DL CREATININE (test code = 2214) 1.39 MG/DL eGFR (2020 CKD-EPI) (test co de = 18438) 43 ML/MIN/1.73 CALC BUN/CREAT (test code = [...] code = 2219) 32 U/L Delfino OrtaLIPID [id number] 00:00:00* Test Item Value Reference Range Interpretation Comme nts CHOLESTEROL (test code = 2210) 187 MG/DL TRIGLYCERIDES (test code = 2232) 58 MG/DL HDL CHOLESTEROL (test code = 2220) 110 MG/DL CALC LDL CHOL (test code = 2237) 64 MG/DL RISK RATIO LDL/HDL (test cod e = 2238) 0.58 RATIO Delfino Schumacher AustinLIPID [id number] 00:00:00* Test Item Value Reference Range Interpretation Comme nts CHOLESTEROL (test code = 2210) 183 MG/DL TRIGLYCERIDES (test code = 2232) 69 MG/DL HDL CHOLESTEROL (test code = 2220) 93 MG/DL CALC LDL CHOL (test code = 2237) 75 MG/DL RISK RATIO LDL/HDL (test cod e = 2238) 0.81 RATIO Delfino Schumacher AustinCOMPREHENSIVE METABOLIC [id number] 00:00:00* Test Item Value Reference Range Interpretation Comme nts GLUCOSE (test code = 2217) 74 MG/DL BUN (test code = 2208) 16 MG/DL CREATININE (test code = 2214) 0.96 MG/DL eGFR (2020 CKD-EPI) (test co de = 85047) 69 ML/MIN/1.73 CALC BUN/CREAT (test code = [...] = 2219) 13 U/L Delfino Schumacher AustinLIPID [id number] 00:00:00* Test Item Value Reference Range Interpretation Comme nts CHOLESTEROL (test code = 2210) 183 MG/DL TRIGLYCERIDES (test code = 2232) 69 MG/DL HDL CHOLESTEROL (test code = 2220) 93 MG/DL CALC LDL CHOL (test code = 2237) 75 MG/DL RISK RATIO LDL/HDL (test cod e = 2238) 0.81 RATIO Delfino Schumacher AustinCOMPREHENSIVE METABOLIC [id number] 00:00:00* Test Item Value Reference Range Interpretation Comme nts GLUCOSE (test code = 2217) 74 MG/DL BUN (test code = 2208) 16 MG/DL CREATININE (test code = 2214) 0.96 MG/DL eGFR (2020 CKD-EPI) (test co de = 78466) 69 ML/MIN/1.73 CALC BUN/CREAT (test code = [...] = 2219) 13 U/L Delfino Schumacher AustinLIPID [id number] 00:00:00* Test Item Value Reference Range Interpretation Comme nts CHOLESTEROL (test code = 2210) 183 MG/DL TRIGLYCERIDES (test code = 2232) 69 MG/DL HDL CHOLESTEROL (test code = 2220) 93 MG/DL CALC LDL CHOL (test code = 2237) 75 MG/DL RISK RATIO LDL/HDL (test cod e = 2238) 0.81 RATIO Delfino Schumacher WalesCOMPREHENSIVE METABOLIC [id number] 00:00:00* Test Item Value Reference Range Interpretation Comme nts GLUCOSE (test code = 2217) 74 MG/DL BUN (test code = 2208) 16 MG/DL CREATININE (test code = 2214) 0.96 MG/DL eGFR (2020 CKD-EPI) (test co de = 54304) 69 ML/MIN/1.73 CALC BUN/CREAT (test code = [...] code = 2219) 13 U/L Delfino OrtaLIPID [id number] 00:00:00* Test Item Value Reference Range Interpretation Comme nts CHOLESTEROL (test code = 2210) 183 MG/DL TRIGLYCERIDES (test code = 2232) 69 MG/DL HDL CHOLESTEROL (test code = 2220) 93 MG/DL CALC LDL CHOL (test code = 2237) 75 MG/DL RISK RATIO LDL/HDL (test cod e = 2238) 0.81 RATIO Delfino OrtaCOMPREHENSIVE METABOLIC [id number] 00:00:00* Test Item Value Reference Range Interpretation Comme nts GLUCOSE (test code = 2217) 74 MG/DL BUN (test code = 2208) 16 MG/DL CREATININE (test code = 2214) 0.96 MG/DL eGFR (2020 CKD-EPI) (test co de = 02306) 69 ML/MIN/1.73 CALC BUN/CREAT (test code = [...] code = 2219) 13 U/L Delfino OrtaLIPID [id number] 00:00:00* Test Item Value Reference Range Interpretation Comme nts CHOLESTEROL (test code = 2210) 183 MG/DL TRIGLYCERIDES (test code = 2232) 69 MG/DL HDL CHOLESTEROL (test code = 2220) 93 MG/DL CALC LDL CHOL (test code = 2237) 75 MG/DL RISK RATIO LDL/HDL (test cod e = 2238) 0.81 RATIO Delfino OrtaCOMPREHENSIVE METABOLIC [id number] 00:00:00* Test Item Value Reference Range Interpretation Comme nts GLUCOSE (test code = 2217) 74 MG/DL BUN (test code = 2208) 16 MG/DL CREATININE (test code = 2214) 0.96 MG/DL eGFR (2020 CKD-EPI) (test co de = 65253) 69 ML/MIN/1.73 CALC BUN/CREAT (test code = [...] = 2219) 13 U/L Delfino Schumacher AustinLIPID [id number] 00:00:00* Test Item Value Reference Range Interpretation Comme nts CHOLESTEROL (test code = 2210) 183 MG/DL TRIGLYCERIDES (test code = 2232) 69 MG/DL HDL CHOLESTEROL (test code = 2220) 93 MG/DL CALC LDL CHOL (test code = 2237) 75 MG/DL RISK RATIO LDL/HDL (test cod e = 2238) 0.81 RATIO Delfino Schumacher AustinCOMPREHENSIVE METABOLIC [id number] 00:00:00* Test Item Value Reference Range Interpretation Comme nts GLUCOSE (test code = 2217) 74 MG/DL BUN (test code = 2208) 16 MG/DL CREATININE (test code = 2214) 0.96 MG/DL eGFR (2020 CKD-EPI) (test co de = 66689) 69 ML/MIN/1.73 CALC BUN/CREAT (test code = [...] = 2219) 13 U/L Delfino Schumacher AustinLIPID [id number] 00:00:00* Test Item Value Reference Range Interpretation Comme nts CHOLESTEROL (test code = 2210) 183 MG/DL TRIGLYCERIDES (test code = 2232) 69 MG/DL HDL CHOLESTEROL (test code = 2220) 93 MG/DL CALC LDL CHOL (test code = 2237) 75 MG/DL RISK RATIO LDL/HDL (test cod e = 2238) 0.81 RATIO Delfino Schumacher AustinCOMPREHENSIVE METABOLIC [id number] 00:00:00* Test Item Value Reference Range Interpretation Comme nts GLUCOSE (test code = 2217) 74 MG/DL BUN (test code = 2208) 16 MG/DL CREATININE (test code = 2214) 0.96 MG/DL eGFR (2020 CKD-EPI) (test co de = 77229) 69 ML/MIN/1.73 CALC BUN/CREAT (test code = [...] code = 2219) 13 U/L Delfino OrtaLIPID [id number] 00:00:00* Test Item Value Reference Range Interpretation Comme nts CHOLESTEROL (test code = 2210) 183 MG/DL TRIGLYCERIDES (test code = 2232) 69 MG/DL HDL CHOLESTEROL (test code = 2220) 93 MG/DL CALC LDL CHOL (test code = 2237) 75 MG/DL RISK RATIO LDL/HDL (test cod e = 2238) 0.81 RATIO Delfino F YouCOMPREHENSIVE METABOLIC [id number] 00:00:00* Test Item Value Reference Range Interpretation Comme nts GLUCOSE (test code = 2217) 74 MG/DL BUN (test code = 2208) 16 MG/DL CREATININE (test code = 2214) 0.96 MG/DL eGFR (2020 CKD-EPI) (test co de = 76674) 69 ML/MIN/1.73 CALC BUN/CREAT (test code = [...] code = 2219) 13 U/L COMPREHENSIVE METABOLIC [id number] 00:00:00* Test Item Value Reference Range Interpretation Comme nts GLUCOSE (test code = 2217) 74 MG/DL BUN (test code = 2208) 16 MG/DL CREATININE (test code = 2214) 0.96 MG/DL eGFR (2020 CKD-EPI) (test co de = 06229) 69 ML/MIN/1.73 CALC BUN/CREAT (test code = [...] code = 2219) 13 U/L Delfino F AustinLIPID [id number] 00:00:00* Test Item Value Reference Range Interpretation Comme nts CHOLESTEROL (test code = 2210) 183 MG/DL TRIGLYCERIDES (test code = 2232) 69 MG/DL HDL CHOLESTEROL (test code = 2220) 93 MG/DL CALC LDL CHOL (test code = 2237) 75 MG/DL RISK RATIO LDL/HDL (test cod e = 2238) 0.81 RATIO LIPID [id number] 00:00:00* Test Item Value Reference Range Interpretation Comme nts CHOLESTEROL (test code = 2210) 183 MG/DL TRIGLYCERIDES (test code = 2232) 69 MG/DL HDL CHOLESTEROL (test code = 2220) 93 MG/DL CALC LDL CHOL (test code = 2237) 75 MG/DL RISK RATIO LDL/HDL (test cod e = 2238) 0.81 RATIO Delfino Schumacher AustinCOMPREHENSIVE METABOLIC [id number] 00:00:00* Test Item Value Reference Range Interpretation Comme nts GLUCOSE (test code = 2217) 74 MG/DL BUN (test code = 2208) 16 MG/DL CREATININE (test code = 2214) 0.96 MG/DL eGFR (2020 CKD-EPI) (test co de = 51553) 69 ML/MIN/1.73 CALC BUN/CREAT (test code = [...] = 2219) 13 U/L Delfino Schumacher AustinLIPID [id number] 00:00:00* Test Item Value Reference Range Interpretation Comme nts CHOLESTEROL (test code = 2210) 183 MG/DL TRIGLYCERIDES (test code = 2232) 69 MG/DL HDL CHOLESTEROL (test code = 2220) 93 MG/DL CALC LDL CHOL (test code = 2237) 75 MG/DL RISK RATIO LDL/HDL (test cod e = 2238) 0.81 RATIO Dlefino Schumacher AustinCOMPREHENSIVE METABOLIC [id number] 00:00:00* Test Item Value Reference Range Interpretation Comme nts GLUCOSE (test code = 2217) 74 MG/DL BUN (test code = 2208) 16 MG/DL CREATININE (test code = 2214) 0.96 MG/DL eGFR (2020 CKD-EPI) (test co de = 41151) 69 ML/MIN/1.73 CALC BUN/CREAT (test code = [...] code = 2219) 13 U/L Delfino Endy WalesLIPID [id number] 00:00:00* Test Item Value Reference Range Interpretation Comme nts CHOLESTEROL (test code = 2210) 183 MG/DL TRIGLYCERIDES (test code = 2232) 69 MG/DL HDL CHOLESTEROL (test code = 2220) 93 MG/DL CALC LDL CHOL (test code = 2237) 75 MG/DL RISK RATIO LDL/HDL (test cod e = 2238) 0.81 RATIO Delfino Schumacher YouCOMPREHENSIVE METABOLIC [id number] 00:00:00* Test Item Value Reference Range Interpretation Comme nts GLUCOSE (test code = 2217) 74 MG/DL BUN (test code = 2208) 16 MG/DL CREATININE (test code = 2214) 0.96 MG/DL eGFR (2020 CKD-EPI) (test co de = 29361) 69 ML/MIN/1.73 CALC BUN/CREAT (test code = [...] code = 2219) 13 U/L Delfino OrtaLIPID [id number] 00:00:00* Test Item Value Reference Range Interpretation Comme nts CHOLESTEROL (test code = 2210) 183 MG/DL TRIGLYCERIDES (test code = 2232) 69 MG/DL HDL CHOLESTEROL (test code = 2220) 93 MG/DL CALC LDL CHOL (test code = 2237) 75 MG/DL RISK RATIO LDL/HDL (test cod e = 2238) 0.81 RATIO Delfino OrtaCOMPREHENSIVE METABOLIC [id number] 00:00:00* Test Item Value Reference Range Interpretation Comme nts GLUCOSE (test code = 2217) 74 MG/DL BUN (test code = 2208) 16 MG/DL CREATININE (test code = 2214) 0.96 MG/DL eGFR (2020 CKD-EPI) (test co de = 82610) 69 ML/MIN/1.73 CALC BUN/CREAT (test code = [...] code = 2219) 13 U/L Delfino OrtaLIPID [id number] 00:00:00* Test Item Value Reference Range Interpretation Comme nts CHOLESTEROL (test code = 2210) 183 MG/DL TRIGLYCERIDES (test code = 2232) 69 MG/DL HDL CHOLESTEROL (test code = 2220) 93 MG/DL CALC LDL CHOL (test code = 2237) 75 MG/DL RISK RATIO LDL/HDL (test cod e = 2238) 0.81 RATIO Delfino OrtaCOMPREHENSIVE METABOLIC [id number] 00:00:00* Test Item Value Reference Range Interpretation Comme nts GLUCOSE (test code = 2217) 74 MG/DL BUN (test code = 2208) 16 MG/DL CREATININE (test code = 2214) 0.96 MG/DL eGFR (2020 CKD-EPI) (test co de = 28309) 69 ML/MIN/1.73 CALC BUN/CREAT (test code = [...] = 2219) 13 U/L Delfino Schumacher AustinLIPID [id number] 00:00:00* Test Item Value Reference Range Interpretation Comme nts CHOLESTEROL (test code = 2210) 183 MG/DL TRIGLYCERIDES (test code = 2232) 69 MG/DL HDL CHOLESTEROL (test code = 2220) 93 MG/DL CALC LDL CHOL (test code = 2237) 75 MG/DL RISK RATIO LDL/HDL (test cod e = 2238) 0.81 RATIO Delfino OrtaCOMPREHENSIVE METABOLIC [id number] 00:00:00* Test Item Value Reference Range Interpretation Comme nts GLUCOSE (test code = 2217) 74 MG/DL BUN (test code = 2208) 16 MG/DL CREATININE (test code = 2214) 0.96 MG/DL eGFR (2020 CKD-EPI) (test co de = 63005) 69 ML/MIN/1.73 CALC BUN/CREAT (test code = [...] code = 2219) 13 U/L Delfino Schumacher WalesLIPID [id number] 00:00:00* Test Item Value Reference Range Interpretation Comme nts CHOLESTEROL (test code = 2210) 183 MG/DL TRIGLYCERIDES (test code = 2232) 69 MG/DL HDL CHOLESTEROL (test code = 2220) 93 MG/DL CALC LDL CHOL (test code = 2237) 75 MG/DL RISK RATIO LDL/HDL (test cod e = 2238) 0.81 RATIO Delfino F YouCOMPREHENSIVE METABOLIC [id number] 00:00:00* Test Item Value Reference Range Interpretation Comme nts GLUCOSE (test code = 2217) 74 MG/DL BUN (test code = 2208) 16 MG/DL CREATININE (test code = 2214) 0.96 MG/DL eGFR (2020 CKD-EPI) (test co de = 40809) 69 ML/MIN/1.73 CALC BUN/CREAT (test code = [...] = 2219) 13 U/L Delfino OrtaCOMPREHENSIVE METABOLIC [id number] 00:00:00* Test Item Value Reference Range Interpretation Comme nts GLUCOSE (test code = 2217) 74 MG/DL BUN (test code = 2208) 16 MG/DL CREATININE (test code = 2214) 0.96 MG/DL eGFR (2020 CKD-EPI) (test co de = 01093) 69 ML/MIN/1.73 CALC BUN/CREAT (test code = [...] code = 2219) 13 U/L Delfino OrtaLIPID [id number] 00:00:00* Test Item Value Reference Range Interpretation Comme nts CHOLESTEROL (test code = 2210) 183 MG/DL TRIGLYCERIDES (test code = 2232) 69 MG/DL HDL CHOLESTEROL (test code = 2220) 93 MG/DL CALC LDL CHOL (test code = 2237) 75 MG/DL RISK RATIO LDL/HDL (test cod e = 2238) 0.81 RATIO Delfino Schumacher AustinCOMPREHENSIVE METABOLIC [id number] 00:00:00* Test Item Value Reference Range Interpretation Comme nts GLUCOSE (test code = 2217) 74 MG/DL BUN (test code = 2208) 16 MG/DL CREATININE (test code = 2214) 0.96 MG/DL eGFR (2020 CKD-EPI) (test co de = 05773) 69 ML/MIN/1.73 CALC BUN/CREAT (test code = [...] code = 2219) 13 U/L Delfino OrtaLIPID [id number] 00:00:00* Test Item Value Reference Range Interpretation Comme nts CHOLESTEROL (test code = 2210) 183 MG/DL TRIGLYCERIDES (test code = 2232) 69 MG/DL HDL CHOLESTEROL (test code = 2220) 93 MG/DL CALC LDL CHOL (test code = 2237) 75 MG/DL RISK RATIO LDL/HDL (test cod e = 2238) 0.81 RATIO Delfino Schumacher AustinLIPID [id number] 00:00:00* Test Item Value Reference Range Interpretation Comme nts CHOLESTEROL (test code = 2210) 183 MG/DL TRIGLYCERIDES (test code = 2232) 69 MG/DL HDL CHOLESTEROL (test code = 2220) 93 MG/DL CALC LDL CHOL (test code = 2237) 75 MG/DL RISK RATIO LDL/HDL (test cod e = 2238) 0.81 RATIO Delfino Schumacher AustinCOMPREHENSIVE METABOLIC [id number] 00:00:00* Test Item Value Reference Range Interpretation Comme nts GLUCOSE (test code = 2217) 74 MG/DL BUN (test code = 2208) 16 MG/DL CREATININE (test code = 2214) 0.96 MG/DL eGFR (2020 CKD-EPI) (test co de = 20641) 69 ML/MIN/1.73 CALC BUN/CREAT (test code = [...] = 2219) 13 U/L Delfino Schumacher AustinLIPID [id number] 00:00:00* Test Item Value Reference Range Interpretation Comme nts CHOLESTEROL (test code = 2210) 183 MG/DL TRIGLYCERIDES (test code = 2232) 69 MG/DL HDL CHOLESTEROL (test code = 2220) 93 MG/DL CALC LDL CHOL (test code = 2237) 75 MG/DL RISK RATIO LDL/HDL (test cod e = 2238) 0.81 RATIO Delfino Schumacher WalesCOMPREHENSIVE METABOLIC [id number] 00:00:00* Test Item Value Reference Range Interpretation Comme nts GLUCOSE (test code = 2217) 74 MG/DL BUN (test code = 2208) 16 MG/DL CREATININE (test code = 2214) 0.96 MG/DL eGFR (2020 CKD-EPI) (test co de = 03877) 69 ML/MIN/1.73 CALC BUN/CREAT (test code = [...] code = 2219) 13 U/L Delfino Cedeño [id number] 09:14:59SPECIMEN NUMBER: [id number] CULTURE, URINE SPECIMEN NUMBER: [id number] SPECIMEN COMMENT: URINE SOURCE: URINE REPORT STATUS: FINAL FINAL REPORT: 07/05/2021 >100,000 CFU/ML MIXED MICROBIAL POPULATION PRESENT, NO PREDOMINATING ORGANISMS;PROBABLE CONTAMINANTS.CULTURE, [id number] 00:00:00* Test Item Value Reference Range Interpretation Comme nts CULTURE, URINE (test code = 48036) SPECIMEN NUMBER: [id number] Delfino Cedeño [id number] 00:00:00* Test Item Value Reference Range Interpretation Comme nts CULTURE, URINE (test code = 69403) SPECIMEN NUMBER: [id number] Delfino Cedeño [id number] 00:00:00* Test Item Value Reference Range Interpretation Comme nts CULTURE, URINE (test code = 36300) SPECIMEN NUMBER: [id number] Delfino Cedeño, [id number] 00:00:00* Test Item Value Reference Range Interpretation Comme nts CULTURE, URINE (test code = 26602) SPECIMEN NUMBER: [id number] Delfino Cedeño, [id number] 00:00:00* Test Item Value Reference Range Interpretation Comme nts CULTURE, URINE (test code = 39943) SPECIMEN NUMBER: [id number] Delfino Cedeño, [id number] 00:00:00* Test Item Value Reference Range Interpretation Comme nts CULTURE, URINE (test code = 91776) SPECIMEN NUMBER: [id number] Delfino SarmientoLTNIALL, [id number] 00:00:00* Test Item Value Reference Range Interpretation Comme nts CULTURE, URINE (test code = 70040) SPECIMEN NUMBER: [id number] AUBREY, [id number] 00:00:00* Test Item Value Reference Range Interpretation Comme nts CULTURE, URINE (test code = 46700) SPECIMEN NUMBER: [id number] Delfino SarmientoLTNIALL [id number] 00:00:00* Test Item Value Reference Range Interpretation Comme nts CULTURE, URINE (test code = 50650) SPECIMEN NUMBER: [id number] AUBREY [id number] 00:00:00* Test Item Value Reference Range Interpretation Comme nts CULTURE, URINE (test code = 98528) SPECIMEN NUMBER: [id number] Delfino SarmientoLTNIALL [id number] 00:00:00* Test Item Value Reference Range Interpretation Comme nts CULTURE, URINE (test code = 78077) SPECIMEN NUMBER: [id number] CULTURE, [id number] 00:00:00* Test Item Value Reference Range Interpretation Comme nts CULTURE, URINE (test code = 50362) SPECIMEN NUMBER: [id number] Delfino SarmientoLTNIALL, [id number] 00:00:00* Test Item Value Reference Range Interpretation Comme nts CULTURE, URINE (test code = 44259) SPECIMEN NUMBER: [id number] AUBREY, [id number] 00:00:00* Test Item Value Reference Range Interpretation Comme nts CULTURE, URINE (test code = 77876) SPECIMEN NUMBER: [id number] Delfino SarmientoLTNIALL, [id number] 00:00:00* Test Item Value Reference Range Interpretation Comme nts CULTURE, URINE (test code = 49957) SPECIMEN NUMBER: [id number] Delfino SarmientoLTNIALL, [id number] 00:00:00* Test Item Value Reference Range Interpretation Comme nts CULTURE, URINE (test code = 46613) SPECIMEN NUMBER: [id number] Delfino SarmientoLTNIALL, [id number] 00:00:00* Test Item Value Reference Range Interpretation Comme nts CULTURE, URINE (test code = 77307) SPECIMEN NUMBER: [id number] Delfino SarmientoLTURE, [id number] 00:00:00* Test Item Value Reference Range Interpretation Comme nts CULTURE, URINE (test code = 65197) SPECIMEN NUMBER: [id number] Delfino SarmientoLTNIALL, [id number] 00:00:00* Test Item Value Reference Range Interpretation Comme nts CULTURE, URINE (test code = 40502) SPECIMEN NUMBER: [id number] Delfino SarmientoLTNIALL, [id number] 00:00:00* Test Item Value Reference Range Interpretation Comme nts CULTURE, URINE (test code = 37937) SPECIMEN NUMBER: [id number] Delfino Cedeño, [id number] 00:00:00* Test Item Value Reference Range Interpretation Comme nts CULTURE, URINE (test code = 15232) SPECIMEN NUMBER: [id number] Delfino Cedeño, [id number] 00:00:00* Test Item Value Reference Range Interpretation Comme nts CULTURE, URINE (test code = 45231) SPECIMEN NUMBER: [id number] Delfino SarmientoLTNIALL, [id number] 00:00:00* Test Item Value Reference Range Interpretation Comme nts CULTURE, URINE (test code = 89417) SPECIMEN NUMBER: [id number] Delfino OrtaVAGINAL PATHOGENS DNA [id number] 15:31:31* Test Item Value Reference Range Interpretation Comme nts DIANNA SPECIES (test code = ) NEGATIVE NEGATIVE G. VAGINALIS (test code = 70509) NEGATIVE NEGATIVE T. VAGINALIS (test code = 79242) NEGATIVE NEGATIVE UNLESS OTHERWISE INDICATED, ALL TESTING PERFORMED [facility] [address] [place] [address] POWER TRANSMISSION ENGINEER: ALYSSIA FRASER M.D. CLIA NUMBER [id number] [facility] [place]. [id number] VAGINAL PATHOGENS DNA [id number] 00:00:00* Test Item Value Reference Range Interpretation Comme nts DIANNA SPECIES (test code = 70881) NEGATIVE G. VAGINALIS (test code = 51133) NEGATIVE T. VAGINALIS (test code = 09916) NEGATIVE Delfino F AustinVAGINAL PATHOGENS DNA [id number] 00:00:00* Test Item Value Reference Range Interpretation Comme nts DIANNA SPECIES (test code = ) NEGATIVE G. VAGINALIS (test code = 49129) NEGATIVE T. VAGINALIS (test code = 96098) NEGATIVE Dlefino F AustinVAGINAL PATHOGENS DNA [id number] 00:00:00* Test Item Value Reference Range Interpretation Comme nts DIANNA SPECIES (test code = 75038) NEGATIVE G. VAGINALIS (test code = 38440) NEGATIVE T. VAGINALIS (test code = 43066) NEGATIVE Delfino F AustinVAGINAL PATHOGENS DNA [id number] 00:00:00* Test Item Value Reference Range Interpretation Comme nts DIANNA SPECIES (test code = 60883) NEGATIVE G. VAGINALIS (test code = 02696) NEGATIVE T. VAGINALIS (test code = 60828) NEGATIVE Delfino F AustinVAGINAL PATHOGENS DNA [id number] 00:00:00* Test Item Value Reference Range Interpretation Comme nts DIANNA SPECIES (test code = ) NEGATIVE G. VAGINALIS (test code = 02414) NEGATIVE T. VAGINALIS (test code = 94645) NEGATIVE Delfino F AustinVAGINAL PATHOGENS DNA [id number] 00:00:00* Test Item Value Reference Range Interpretation Comme nts DIANNA SPECIES (test code = ) NEGATIVE G. VAGINALIS (test code = 21178) NEGATIVE T. VAGINALIS (test code = 03376) NEGATIVE Delfino F AustinVAGINAL PATHOGENS DNA [id number] 00:00:00* Test Item Value Reference Range Interpretation Comme nts DIANNA SPECIES (test code = 87960) NEGATIVE G. VAGINALIS (test code = 62084) NEGATIVE T. VAGINALIS (test code = 48962) NEGATIVE Delfino F AustinVAGINAL PATHOGENS DNA [id number] 00:00:00* Test Item Value Reference Range Interpretation Comme nts DIANNA SPECIES (test code = 79406) NEGATIVE G. VAGINALIS (test code = 44189) NEGATIVE T. VAGINALIS (test code = 53336) NEGATIVE VAGINAL PATHOGENS DNA [id number] 00:00:00* Test Item Value Reference Range Interpretation Comme nts DIANNA SPECIES (test code = 88563) NEGATIVE G. VAGINALIS (test code = 10735) NEGATIVE T. VAGINALIS (test code = ) NEGATIVE Delfino F AustinVAGINAL PATHOGENS DNA [id number] 00:00:00* Test Item Value Reference Range Interpretation Comme nts DIANNA SPECIES (test code = 29051) NEGATIVE G. VAGINALIS (test code = 27905) NEGATIVE T. VAGINALIS (test code = 28581) NEGATIVE VAGINAL PATHOGENS DNA [id number] 00:00:00* Test Item Value Reference Range Interpretation Comme nts DIANNA SPECIES (test code = 13316) NEGATIVE G. VAGINALIS (test code = 50449) NEGATIVE T. VAGINALIS (test code = 44030) NEGATIVE Delfino F AustinVAGINAL PATHOGENS DNA [id number] 00:00:00* Test Item Value Reference Range Interpretation Comme nts DIANNA SPECIES (test code = ) NEGATIVE G. VAGINALIS (test code = 00713) NEGATIVE T. VAGINALIS (test code = 26003) NEGATIVE VAGINAL PATHOGENS DNA [id number] 00:00:00* Test Item Value Reference Range Interpretation Comme nts DIANNA SPECIES (test code = ) NEGATIVE G. VAGINALIS (test code = 12533) NEGATIVE T. VAGINALIS (test code = 23733) NEGATIVE Delfino F AustinVAGINAL PATHOGENS DNA [id number] 00:00:00* Test Item Value Reference Range Interpretation Comme nts DIANNA SPECIES (test code = ) NEGATIVE G. VAGINALIS (test code = 88375) NEGATIVE T. VAGINALIS (test code = 61158) NEGATIVE VAGINAL PATHOGENS DNA [id number] 00:00:00* Test Item Value Reference Range Interpretation Comme nts DIANNA SPECIES (test code = 23982) NEGATIVE G. VAGINALIS (test code = 92329) NEGATIVE T. VAGINALIS (test code = 52729) NEGATIVE Delfino F AustinVAGINAL PATHOGENS DNA [id number] 00:00:00* Test Item Value Reference Range Interpretation Comme nts DIANNA SPECIES (test code = 09946) NEGATIVE G. VAGINALIS (test code = 17825) NEGATIVE T. VAGINALIS (test code = 39094) NEGATIVE Delfino F AustinVAGINAL PATHOGENS DNA [id number] 00:00:00* Test Item Value Reference Range Interpretation Comme nts DIANNA SPECIES (test code = 15504) NEGATIVE G. VAGINALIS (test code = 72004) NEGATIVE T. VAGINALIS (test code = 84865) NEGATIVE Delfino Endy AustinVAGINAL PATHOGENS DNA [id number] 00:00:00* Test Item Value Reference Range Interpretation Comme nts DIANNA SPECIES (test code = 25685) NEGATIVE G. VAGINALIS (test code = 30757) NEGATIVE T. VAGINALIS (test code = 34996) NEGATIVE Delfino Endy AustinVAGINAL PATHOGENS DNA [id number] 00:00:00* Test Item Value Reference Range Interpretation Comme nts DIANNA SPECIES (test code = 17029) NEGATIVE G. VAGINALIS (test code = 18523) NEGATIVE T. VAGINALIS (test code = 50047) NEGATIVE Delfino F AustinVAGINAL PATHOGENS DNA [id number] 00:00:00* Test Item Value Reference Range Interpretation Comme nts DIANNA SPECIES (test code = 25735) NEGATIVE G. VAGINALIS (test code = 73621) NEGATIVE T. VAGINALIS (test code = 07546) NEGATIVE Delfino Schumacher AustinVAGINAL PATHOGENS DNA [id number] 00:00:00* Test Item Value Reference Range Interpretation Comme nts DIANNA SPECIES (test code = 96444) NEGATIVE G. VAGINALIS (test code = 28170) NEGATIVE T. VAGINALIS (test code = 57178) NEGATIVE Delfino Schumacher AustinVAGINAL PATHOGENS DNA [id number] 00:00:00* Test Item Value Reference Range Interpretation Comme nts DIANNA SPECIES (test code = 73046) NEGATIVE G. VAGINALIS (test code = 32715) NEGATIVE T. VAGINALIS (test code = 55612) NEGATIVE Delfino Schumacher AustinVAGINAL PATHOGENS DNA [id number] 00:00:00* Test Item Value Reference Range Interpretation Comme nts DIANNA SPECIES (test code = 98690) NEGATIVE G. VAGINALIS (test code = 97283) NEGATIVE T. VAGINALIS (test code = 58876) NEGATIVE Delfino OrtaCULTNIALL, [id number] 12:43:02SPECIMEN NUMBER: [id number] CULTURE, URINE SPECIMEN NUMBER: [id number] SPECIMEN COMMENT: URINE SOURCE: URINE REPORT STATUS: [...] Comme nts CULTURE, URINE (test code = 21818) SPECIMEN NUMBER: [id number] Delfino Cedeño [id number] 00:00:00* Test Item Value Reference Range Interpretation Comme nts CULTURE, URINE (test code = 53803) SPECIMEN NUMBER: [id number] Delfino Cedeño [id number] 00:00:00* Test Item Value Reference Range Interpretation Comme nts CULTURE, URINE (test code = 02733) SPECIMEN NUMBER: [id number] Delfino Cedeño [id number] 00:00:00* Test Item Value Reference Range Interpretation Comme nts CULTURE, URINE (test code = 57757) SPECIMEN NUMBER: [id number] Delfino Cedeño, [id number] 00:00:00* Test Item Value Reference Range Interpretation Comme nts CULTURE, URINE (test code = 36222) SPECIMEN NUMBER: [id number] Delfino Cedeño, [id number] 00:00:00* Test Item Value Reference Range Interpretation Comme nts CULTURE, URINE (test code = 98127) SPECIMEN NUMBER: [id number] Delfino Cedeño, [id number] 00:00:00* Test Item Value Reference Range Interpretation Comme nts CULTURE, URINE (test code = 89429) SPECIMEN NUMBER: [id number] Delfino Cedeño, [id number] 00:00:00* Test Item Value Reference Range Interpretation Comme nts CULTURE, URINE (test code = 53657) SPECIMEN NUMBER: [id number] CULTURE, [id number] 00:00:00* Test Item Value Reference Range Interpretation Comme nts CULTURE, URINE (test code = 61256) SPECIMEN NUMBER: [id number] CULTURE, [id number] 00:00:00* Test Item Value Reference Range Interpretation Comme nts CULTURE, URINE (test code = 77918) SPECIMEN NUMBER: [id number] Delfino SarmientoLTNIALL, [id number] 00:00:00* Test Item Value Reference Range Interpretation Comme nts CULTURE, URINE (test code = 17839) SPECIMEN NUMBER: [id number] CULTURE, [id number] 00:00:00* Test Item Value Reference Range Interpretation Comme nts CULTURE, URINE (test code = 53851) SPECIMEN NUMBER: [id number] Delfino SarmientoLTNIALL, [id number] 00:00:00* Test Item Value Reference Range Interpretation Comme nts CULTURE, URINE (test code = 82571) SPECIMEN NUMBER: [id number] CULTURE, [id number] 00:00:00* Test Item Value Reference Range Interpretation Comme nts CULTURE, URINE (test code = 36559) SPECIMEN NUMBER: [id number] Delfino SarmientoLTNIALL, [id number] 00:00:00* Test Item Value Reference Range Interpretation Comme nts CULTURE, URINE (test code = 29705) SPECIMEN NUMBER: [id number] Delfino SarmientoLTNIALL, [id number] 00:00:00* Test Item Value Reference Range Interpretation Comme nts CULTURE, URINE (test code = 41515) SPECIMEN NUMBER: [id number] Delfino SarmientoLTNIALL, [id number] 00:00:00* Test Item Value Reference Range Interpretation Comme nts CULTURE, URINE (test code = 54356) SPECIMEN NUMBER: [id number] Delfino SarmientoLTNIALL, [id number] 00:00:00* Test Item Value Reference Range Interpretation Comme nts CULTURE, URINE (test code = 91110) SPECIMEN NUMBER: [id number] Delfino OrtaCULTNIALL, [id number] 00:00:00* Test Item Value Reference Range Interpretation Comme nts CULTURE, URINE (test code = 72849) SPECIMEN NUMBER: [id number] Delfino SarmientoLTNIALL, [id number] 00:00:00* Test Item Value Reference Range Interpretation Comme nts CULTURE, URINE (test code = 54205) SPECIMEN NUMBER: [id number] Delfino F AustinCULTURE, [id number] 00:00:00* Test Item Value Reference Range Interpretation Comme nts CULTURE, URINE (test code = 41438) SPECIMEN NUMBER: [id number] Delfino OrtaCULTURE, [id number] 00:00:00* Test Item Value Reference Range Interpretation Comme nts CULTURE, URINE (test code = 99989) SPECIMEN NUMBER: [id number] Delfino OrtaCULTURE, [id number] 00:00:00* Test Item Value Reference Range Interpretation Comme nts CULTURE, URINE (test code = 49478) SPECIMEN NUMBER: [id number] Delfino Schumacher AustinURINALYSIS WITH [id number] 07:51:12* Test Item Value Reference Range Interpretation [...] code = 1510) 0.2 MG/DL See_Comment [Automated [employer]] The system which generated this result [...] 0-5 A EPITHELIAL CELLS (test code = 38241) 0-5 /HPF 0-10 BACTERIA (test code = 1515) 3+ NONE SEEN A CASTS, HYALINE (test code = 1517) TRACE NONE-TRACE UNLESS OTHERWISE INDICATED, ALL TESTING PERFORMED [facility] [address] [place] [id number] POWER TRANSMISSION ENGINEER: ALYSSIA FRASER M.D. CLIA NUMBER [id number] [facility] [place]. [id number] URINALYSIS WITH [id number] 00:00:00* Test Item Value Reference Range Interpretation [...] >50 /HPF EPITHELIAL CELLS (test code = 04275) 0-5 /HPF BACTERIA (test code = 1515) 3+ CASTS, HYALINE (test code = 1517) TRACE Delfino Schumacher AustinURINALYSIS WITH [id number] 00:00:00* Test Item Value Reference Range Interpretation [...] >50 /HPF EPITHELIAL CELLS (test code = 75110) 0-5 /HPF BACTERIA (test code = 1515) 3+ CASTS, HYALINE (test code = 1517) TRACE Delfino F AustinURINALYSIS WITH [id number] 00:00:00* Test Item Value Reference Range Interpretation [...] >50 /HPF EPITHELIAL CELLS (test code = 24112) 0-5 /HPF BACTERIA (test code = 1515) 3+ CASTS, HYALINE (test code = 1517) TONY Schumacher AustinURINALYSIS WITH [id number] 00:00:00* Test Item Value Reference Range Interpretation [...] >50 /HPF EPITHELIAL CELLS (test code = 07612) 0-5 /HPF BACTERIA (test code = 1515) 3+ CASTS, HYALINE (test code = 1517) TONY Schumacher AustinURINALYSIS WITH [id number] 00:00:00* Test Item Value Reference Range Interpretation [...] >50 /HPF EPITHELIAL CELLS (test code = 65618) 0-5 /HPF BACTERIA (test code = 1515) 3+ CASTS, HYALINE (test code = 1517) TONY Schumacher AustinURINALYSIS WITH [id number] 00:00:00* Test Item Value Reference Range Interpretation [...] >50 /HPF EPITHELIAL CELLS (test code = 48162) 0-5 /HPF BACTERIA (test code = 1515) 3+ CASTS, HYALINE (test code = 1517) TONY Schumacher AustinURINALYSIS WITH [id number] 00:00:00* Test Item Value Reference Range Interpretation [...] >50 /HPF EPITHELIAL CELLS (test code = 21201) 0-5 /HPF BACTERIA (test code = 1515) 3+ CASTS, HYALINE (test code = 1517) TRACE Delfino Schumacher AustinURINALYSIS WITH [id number] 00:00:00* Test Item Value Reference Range Interpretation [...] >50 /HPF EPITHELIAL CELLS (test code = 43781) 0-5 /HPF BACTERIA (test code = 1515) 3+ CASTS, HYALINE (test code = 1517) TRACE URINALYSIS WITH [id number] 00:00:00* Test Item Value Reference Range Interpretation [...] >50 /HPF EPITHELIAL CELLS (test code = 83802) 0-5 /HPF BACTERIA (test code = 1515) 3+ CASTS, HYALINE (test code = 1517) TRACE Delfino F AustinURINALYSIS WITH [id number] 00:00:00* Test Item Value Reference Range Interpretation [...] >50 /HPF EPITHELIAL CELLS (test code = 19251) 0-5 /HPF BACTERIA (test code = 1515) 3+ CASTS, HYALINE (test code = 1517) TRACE URINALYSIS WITH [id number] 00:00:00* Test Item Value Reference Range Interpretation [...] >50 /HPF EPITHELIAL CELLS (test code = 79788) 0-5 /HPF BACTERIA (test code = 1515) 3+ CASTS, HYALINE (test code = 1517) TRACE Delfino Schumacher AustinURINALYSIS WITH [id number] 00:00:00* Test Item Value Reference Range Interpretation [...] >50 /HPF EPITHELIAL CELLS (test code = 84996) 0-5 /HPF BACTERIA (test code = 1515) 3+ CASTS, HYALINE (test code = 1517) TRACE URINALYSIS WITH [id number] 00:00:00* Test Item Value Reference Range Interpretation [...] >50 /HPF EPITHELIAL CELLS (test code = 69231) 0-5 /HPF BACTERIA (test code = 1515) 3+ CASTS, HYALINE (test code = 1517) TRACE Delfino F AustinURINALYSIS WITH [id number] 00:00:00* Test Item Value Reference Range Interpretation [...] >50 /HPF EPITHELIAL CELLS (test code = 13023) 0-5 /HPF BACTERIA (test code = 1515) 3+ CASTS, HYALINE (test code = 1517) TRACE URINALYSIS WITH [id number] 00:00:00* Test Item Value Reference Range Interpretation [...] >50 /HPF EPITHELIAL CELLS (test code = 60825) 0-5 /HPF BACTERIA (test code = 1515) 3+ CASTS, HYALINE (test code = 1517) TRACE Delfino F AustinURINALYSIS WITH [id number] 00:00:00* Test Item Value Reference Range Interpretation [...] >50 /HPF EPITHELIAL CELLS (test code = 66281) 0-5 /HPF BACTERIA (test code = 1515) 3+ CASTS, HYALINE (test code = 1517) TONY Schumacher AustinURINALYSIS WITH [id number] 00:00:00* Test Item Value Reference Range Interpretation [...] >50 /HPF EPITHELIAL CELLS (test code = 12203) 0-5 /HPF BACTERIA (test code = 1515) 3+ CASTS, HYALINE (test code = 1517) TONY Schumacher AustinURINALYSIS WITH [id number] 00:00:00* Test Item Value Reference Range Interpretation [...] >50 /HPF EPITHELIAL CELLS (test code = 07114) 0-5 /HPF BACTERIA (test code = 1515) 3+ CASTS, HYALINE (test code = 1517) TONY Schumacher AustinURINALYSIS WITH [id number] 00:00:00* Test Item Value Reference Range Interpretation [...] >50 /HPF EPITHELIAL CELLS (test code = 51776) 0-5 /HPF BACTERIA (test code = 1515) 3+ CASTS, HYALINE (test code = 1517) TONY OrtaURINALYSIS WITH [id number] 00:00:00* Test Item Value Reference Range Interpretation [...] >50 /HPF EPITHELIAL CELLS (test code = 57255) 0-5 /HPF BACTERIA (test code = 1515) 3+ CASTS, HYALINE (test code = 1517) TONY Schumacher AustinURINALYSIS WITH [id number] 00:00:00* Test Item Value Reference Range Interpretation [...] >50 /HPF EPITHELIAL CELLS (test code = 33153) 0-5 /HPF BACTERIA (test code = 1515) 3+ CASTS, HYALINE (test code = 1517) TONY Schumacher AustinURINALYSIS WITH [id number] 00:00:00* Test Item Value Reference Range Interpretation [...] >50 /HPF EPITHELIAL CELLS (test code = 30143) 0-5 /HPF BACTERIA (test code = 1515) 3+ CASTS, HYALINE (test code = 1517) TONY Schumacher AustinURINALYSIS WITH [id number] 00:00:00* Test Item Value Reference Range Interpretation [...] >50 /HPF EPITHELIAL CELLS (test code = 35143) 0-5 /HPF BACTERIA (test code = 1515) 3+ CASTS, HYALINE (test code = 1517) TRACE Delfino Schumacher AustinLIPID [id number] 00:00:00* Test Item Value Reference Range Interpretation Comme nts CHOLESTEROL (test code = 2210) 174 MG/DL TRIGLYCERIDES (test code = 2232) 63 MG/DL HDL CHOLESTEROL (test code = 2220) 87 MG/DL CALC LDL CHOL (test code = 2237) 73 MG/DL RISK RATIO LDL/HDL (test cod e = 2238) 0.84 RATIO Delfino OrtaCOMPREHENSIVE METABOLIC [id number] 00:00:00* Test Item Value Reference Range Interpretation Comme nts GLUCOSE (test code = 2217) 80 MG/DL BUN (test code = 2208) 18 MG/DL CREATININE (test code = 2214) 1.06 MG/DL eGFR AMER. (test cod e = 36803) 67 ML/MIN/1.73 eGFR NON- AMER. (test code = 78866) 58 ML/MIN/1.73 CALC BUN/CREAT (test code = [...] = 2219) 54 U/L Delfino OrtaCBC W/AUTO [id number] 00:00:00* Test Item Value Reference Range Interpretation [...] ABS NUCLEATED RBCS (test cod e = 76178) 0.00 K/UL COMMENTS (test code = 1016) (NOTE) Delfino OrtaCOMPREHENSIVE METABOLIC [id number] 00:00:00* Test Item Value Reference Range Interpretation Comme nts GLUCOSE (test code = 2217) 80 MG/DL BUN (test code = 2208) 18 MG/DL CREATININE (test code = 2214) 1.06 MG/DL eGFR AMER. (test cod e = 67497) 67 ML/MIN/1.73 eGFR NON- AMER. (test code = 05828) 58 ML/MIN/1.73 CALC BUN/CREAT (test code = [...] code = 2219) 54 U/L Delfino Schumacher WalesLIPID [id number] 00:00:00* Test Item Value Reference Range Interpretation Comme nts CHOLESTEROL (test code = 2210) 174 MG/DL TRIGLYCERIDES (test code = 2232) 63 MG/DL HDL CHOLESTEROL (test code = 2220) 87 MG/DL CALC LDL CHOL (test code = 2237) 73 MG/DL RISK RATIO LDL/HDL (test cod e = 2238) 0.84 RATIO Delfino Schumacher YouCOMPREHENSIVE METABOLIC [id number] 00:00:00* Test Item Value Reference Range Interpretation Comme nts GLUCOSE (test code = 2217) 80 MG/DL BUN (test code = 2208) 18 MG/DL CREATININE (test code = 2214) 1.06 MG/DL eGFR AMER. (test cod e = 92466) 67 ML/MIN/1.73 eGFR NON- AMER. (test code = 70461) 58 ML/MIN/1.73 CALC BUN/CREAT (test code = [...] = 2219) 54 U/L Delfino OrtaCBC W/AUTO [id number] 00:00:00* Test Item Value Reference Range Interpretation [...] ABS NUCLEATED RBCS (test cod e = 21687) 0.00 K/UL COMMENTS (test code = 1016) (NOTE) Delfino OrtaLIPID [id number] 00:00:00* Test Item Value Reference Range Interpretation Comme nts CHOLESTEROL (test code = 2210) 174 MG/DL TRIGLYCERIDES (test code = 2232) 63 MG/DL HDL CHOLESTEROL (test code = 2220) 87 MG/DL CALC LDL CHOL (test code = 2237) 73 MG/DL RISK RATIO LDL/HDL (test cod e = 2238) 0.84 RATIO Delfino OrtaCOMPREHENSIVE METABOLIC [id number] 00:00:00* Test Item Value Reference Range Interpretation Comme nts GLUCOSE (test code = 2217) 80 MG/DL BUN (test code = 2208) 18 MG/DL CREATININE (test code = 2214) 1.06 MG/DL eGFR AMER. (test cod e = 57434) 67 ML/MIN/1.73 eGFR NON- AMER. (test code = 57663) 58 ML/MIN/1.73 CALC BUN/CREAT (test code = [...] 2219) 54 U/L Delfino Schumacher YouCBC W/AUTO [id number] 00:00:00* Test Item Value Reference Range Interpretation [...] ABS NUCLEATED RBCS (test cod e = 54617) 0.00 K/UL COMMENTS (test code = 1016) (NOTE) Delfino Endy WalesLIPID [id number] 00:00:00* Test Item Value Reference Range Interpretation Comme nts CHOLESTEROL (test code = 2210) 174 MG/DL TRIGLYCERIDES (test code = 2232) 63 MG/DL HDL CHOLESTEROL (test code = 2220) 87 MG/DL CALC LDL CHOL (test code = 2237) 73 MG/DL RISK RATIO LDL/HDL (test cod e = 2238) 0.84 RATIO Delfino OrtaCOMPREHENSIVE METABOLIC [id number] 00:00:00* Test Item Value Reference Range Interpretation Comme nts GLUCOSE (test code = 2217) 80 MG/DL BUN (test code = 2208) 18 MG/DL CREATININE (test code = 2214) 1.06 MG/DL eGFR AMER. (test cod e = 57725) 67 ML/MIN/1.73 eGFR NON- AMER. (test code = 52911) 58 ML/MIN/1.73 CALC BUN/CREAT (test code = [...] = 2219) 54 U/L Delfino OrtaCBC W/AUTO [id number] 00:00:00* Test Item Value Reference Range Interpretation [...] ABS NUCLEATED RBCS (test cod e = 06076) 0.00 K/UL COMMENTS (test code = 1016) (NOTE) Delfino Schumacher YouLIPID [id number] 00:00:00* Test Item Value Reference Range Interpretation Comme nts CHOLESTEROL (test code = 2210) 174 MG/DL TRIGLYCERIDES (test code = 2232) 63 MG/DL HDL CHOLESTEROL (test code = 2220) 87 MG/DL CALC LDL CHOL (test code = 2237) 73 MG/DL RISK RATIO LDL/HDL (test cod e = 2238) 0.84 RATIO Delfino OrtaCOMPREHENSIVE METABOLIC [id number] 00:00:00* Test Item Value Reference Range Interpretation Comme nts GLUCOSE (test code = 2217) 80 MG/DL BUN (test code = 2208) 18 MG/DL CREATININE (test code = 2214) 1.06 MG/DL eGFR AMER. (test cod e = 87946) 67 ML/MIN/1.73 eGFR NON- AMER. (test code = 17779) 58 ML/MIN/1.73 CALC BUN/CREAT (test code = [...] = 2219) 54 U/L Delfino OrtaCBC W/AUTO [id number] 00:00:00* Test Item Value Reference Range Interpretation [...] ABS NUCLEATED RBCS (test cod e = 20685) 0.00 K/UL COMMENTS (test code = 1016) (NOTE) Delfino Schumacher AustinLIPID [id number] 00:00:00* Test Item Value Reference Range Interpretation Comme nts CHOLESTEROL (test code = 2210) 174 MG/DL TRIGLYCERIDES (test code = 2232) 63 MG/DL HDL CHOLESTEROL (test code = 2220) 87 MG/DL CALC LDL CHOL (test code = 2237) 73 MG/DL RISK RATIO LDL/HDL (test cod e = 2238) 0.84 RATIO Delfino Schumacher YouCOMPREHENSIVE METABOLIC [id number] 00:00:00* Test Item Value Reference Range Interpretation Comme nts GLUCOSE (test code = 2217) 80 MG/DL BUN (test code = 2208) 18 MG/DL CREATININE (test code = 2214) 1.06 MG/DL eGFR AMER. (test cod e = 89384) 67 ML/MIN/1.73 eGFR NON- AMER. (test code = 66636) 58 ML/MIN/1.73 CALC BUN/CREAT (test code = [...] code = 2219) 54 U/L [facility]ino [facility] [id number] 00:00:00* Test Item Value Reference Range Interpretation [...] ABS NUCLEATED RBCS (test cod e = 92298) 0.00 K/UL COMMENTS (test code = 1016) (NOTE) Delfino OrtaLIPID [id number] 00:00:00* Test Item Value Reference Range Interpretation Comme nts CHOLESTEROL (test code = 2210) 174 MG/DL TRIGLYCERIDES (test code = 2232) 63 MG/DL HDL CHOLESTEROL (test code = 2220) 87 MG/DL CALC LDL CHOL (test code = 2237) 73 MG/DL RISK RATIO LDL/HDL (test cod e = 2238) 0.84 RATIO Delfino OrtaCOMPREHENSIVE METABOLIC [id number] 00:00:00* Test Item Value Reference Range Interpretation Comme nts GLUCOSE (test code = 2217) 80 MG/DL BUN (test code = 2208) 18 MG/DL CREATININE (test code = 2214) 1.06 MG/DL eGFR AMER. (test cod e = 58968) 67 ML/MIN/1.73 eGFR NON- AMER. (test code = 06148) 58 ML/MIN/1.73 CALC BUN/CREAT (test code = [...] = 2219) 54 U/L Delfino OrtaCBC W/AUTO [id number] 00:00:00* Test Item Value Reference Range Interpretation [...] ABS NUCLEATED RBCS (test cod e = 01766) 0.00 K/UL COMMENTS (test code = 1016) (NOTE) CBC W/AUTO [id number] 00:00:00* Test Item Value Reference Range Interpretation [...] ABS NUCLEATED RBCS (test cod e = 18790) 0.00 K/UL COMMENTS (test code = 1016) (NOTE) Delfino Schumacher AustinLIPID [id number] 00:00:00* Test Item Value Reference Range Interpretation Comme nts CHOLESTEROL (test code = 2210) 174 MG/DL TRIGLYCERIDES (test code = 2232) 63 MG/DL HDL CHOLESTEROL (test code = 2220) 87 MG/DL CALC LDL CHOL (test code = 2237) 73 MG/DL RISK RATIO LDL/HDL (test cod e = 2238) 0.84 RATIO COMPREHENSIVE METABOLIC [id number] 00:00:00* Test Item Value Reference Range Interpretation Comme nts GLUCOSE (test code = 2217) 80 MG/DL BUN (test code = 2208) 18 MG/DL CREATININE (test code = 2214) 1.06 MG/DL eGFR AMER. (test cod e = 89917) 67 ML/MIN/1.73 eGFR NON- AMER. (test code = 58116) 58 ML/MIN/1.73 CALC BUN/CREAT (test code = [...] ALT (test code = 2219) 54 U/L LIPID [id number] 00:00:00* Test Item Value Reference Range Interpretation Comme nts CHOLESTEROL (test code = 2210) 174 MG/DL TRIGLYCERIDES (test code = 2232) 63 MG/DL HDL CHOLESTEROL (test code = 2220) 87 MG/DL CALC LDL CHOL (test code = 2237) 73 MG/DL RISK RATIO LDL/HDL (test cod e = 2238) 0.84 RATIO Delfino OrtaCBC W/AUTO [id number] 00:00:00* Test Item Value Reference Range Interpretation [...] ABS NUCLEATED RBCS (test cod e = 63541) 0.00 K/UL COMMENTS (test code = 1016) (NOTE) COMPREHENSIVE METABOLIC [id number] 00:00:00* Test Item Value Reference Range Interpretation Comme nts GLUCOSE (test code = 2217) 80 MG/DL BUN (test code = 2208) 18 MG/DL CREATININE (test code = 2214) 1.06 MG/DL eGFR AMER. (test cod e = 21061) 67 ML/MIN/1.73 eGFR NON- AMER. (test code = 98923) 58 ML/MIN/1.73 CALC BUN/CREAT (test code = [...] (test code = 2219) 54 U/L [facility] [id number] 00:00:00* Test Item Value Reference Range Interpretation [...] ABS NUCLEATED RBCS (test cod e = 55871) 0.00 K/UL COMMENTS (test code = 1016) (NOTE) Delfino Schumacher AustinLIPID [id number] 00:00:00* Test Item Value Reference Range Interpretation Comme nts CHOLESTEROL (test code = 2210) 174 MG/DL TRIGLYCERIDES (test code = 2232) 63 MG/DL HDL CHOLESTEROL (test code = 2220) 87 MG/DL CALC LDL CHOL (test code = 2237) 73 MG/DL RISK RATIO LDL/HDL (test cod e = 2238) 0.84 RATIO COMPREHENSIVE METABOLIC [id number] 00:00:00* Test Item Value Reference Range Interpretation Comme nts GLUCOSE (test code = 2217) 80 MG/DL BUN (test code = 2208) 18 MG/DL CREATININE (test code = 2214) 1.06 MG/DL eGFR AMER. (test cod e = 80283) 67 ML/MIN/1.73 eGFR NON- AMER. (test code = 67478) 58 ML/MIN/1.73 CALC BUN/CREAT (test code = [...] ALT (test code = 2219) 54 U/L LIPID [id number] 00:00:00* Test Item Value Reference Range Interpretation Comme nts CHOLESTEROL (test code = 2210) 174 MG/DL TRIGLYCERIDES (test code = 2232) 63 MG/DL HDL CHOLESTEROL (test code = 2220) 87 MG/DL CALC LDL CHOL (test code = 2237) 73 MG/DL RISK RATIO LDL/HDL (test cod e = 2238) 0.84 RATIO Delfino F AustinCBC W/AUTO [id number] 00:00:00* Test Item Value Reference Range Interpretation [...] ABS NUCLEATED RBCS (test cod e = 37608) 0.00 K/UL COMMENTS (test code = 1016) (NOTE) COMPREHENSIVE METABOLIC [id number] 00:00:00* Test Item Value Reference Range Interpretation Comme nts GLUCOSE (test code = 2217) 80 MG/DL BUN (test code = 2208) 18 MG/DL CREATININE (test code = 2214) 1.06 MG/DL eGFR AMER. (test cod e = 49097) 67 ML/MIN/1.73 eGFR NON- AMER. (test code = 17920) 58 ML/MIN/1.73 CALC BUN/CREAT (test code = [...] = 2219) 54 U/L Delfino Schumacher AustinLIPID [id number] 00:00:00* Test Item Value Reference Range Interpretation Comme nts CHOLESTEROL (test code = 2210) 174 MG/DL TRIGLYCERIDES (test code = 2232) 63 MG/DL HDL CHOLESTEROL (test code = 2220) 87 MG/DL CALC LDL CHOL (test code = 2237) 73 MG/DL RISK RATIO LDL/HDL (test cod e = 2238) 0.84 RATIO CBC W/AUTO [id number] 00:00:00* Test Item Value Reference Range Interpretation [...] ABS NUCLEATED RBCS (test cod e = 75639) 0.00 K/UL COMMENTS (test code = 1016) (NOTE) Delfino OrtaCOMPREHENSIVE METABOLIC [id number] 00:00:00* Test Item Value Reference Range Interpretation Comme nts GLUCOSE (test code = 2217) 80 MG/DL BUN (test code = 2208) 18 MG/DL CREATININE (test code = 2214) 1.06 MG/DL eGFR AMER. (test cod e = 24814) 67 ML/MIN/1.73 eGFR NON- AMER. (test code = 76697) 58 ML/MIN/1.73 CALC BUN/CREAT (test code = [...] ALT (test code = 2219) 54 U/L LIPID [id number] 00:00:00* Test Item Value Reference Range Interpretation Comme nts CHOLESTEROL (test code = 2210) 174 MG/DL TRIGLYCERIDES (test code = 2232) 63 MG/DL HDL CHOLESTEROL (test code = 2220) 87 MG/DL CALC LDL CHOL (test code = 2237) 73 MG/DL RISK RATIO LDL/HDL (test cod e = 2238) 0.84 RATIO Delfino F AustinCBC W/AUTO [id number] 00:00:00* Test Item Value Reference Range Interpretation [...] ABS NUCLEATED RBCS (test cod e = 15188) 0.00 K/UL COMMENTS (test code = 1016) (NOTE) COMPREHENSIVE METABOLIC [id number] 00:00:00* Test Item Value Reference Range Interpretation Comme nts GLUCOSE (test code = 2217) 80 MG/DL BUN (test code = 2208) 18 MG/DL CREATININE (test code = 2214) 1.06 MG/DL eGFR AMER. (test cod e = 82615) 67 ML/MIN/1.73 eGFR NON- AMER. (test code = 84014) 58 ML/MIN/1.73 CALC BUN/CREAT (test code = [...] = 2219) 54 U/L Delfino Schumacher AustinLIPID [id number] 00:00:00* Test Item Value Reference Range Interpretation Comme nts CHOLESTEROL (test code = 2210) 174 MG/DL TRIGLYCERIDES (test code = 2232) 63 MG/DL HDL CHOLESTEROL (test code = 2220) 87 MG/DL CALC LDL CHOL (test code = 2237) 73 MG/DL RISK RATIO LDL/HDL (test cod e = 2238) 0.84 RATIO CBC W/AUTO [id number] 00:00:00* Test Item Value Reference Range Interpretation [...] ABS NUCLEATED RBCS (test cod e = 70532) 0.00 K/UL COMMENTS (test code = 1016) (NOTE) Delfino OrtaCOMPREHENSIVE METABOLIC [id number] 00:00:00* Test Item Value Reference Range Interpretation Comme nts GLUCOSE (test code = 2217) 80 MG/DL BUN (test code = 2208) 18 MG/DL CREATININE (test code = 2214) 1.06 MG/DL eGFR AMER. (test cod e = 28676) 67 ML/MIN/1.73 eGFR NON- AMER. (test code = 36159) 58 ML/MIN/1.73 CALC BUN/CREAT (test code = [...] ALT (test code = 2219) 54 U/L LIPID [id number] 00:00:00* Test Item Value Reference Range Interpretation Comme nts CHOLESTEROL (test code = 2210) 174 MG/DL TRIGLYCERIDES (test code = 2232) 63 MG/DL HDL CHOLESTEROL (test code = 2220) 87 MG/DL CALC LDL CHOL (test code = 2237) 73 MG/DL RISK RATIO LDL/HDL (test cod e = 2238) 0.84 RATIO Delfino OrtaCOMPREHENSIVE METABOLIC [id number] 00:00:00* Test Item Value Reference Range Interpretation Comme nts GLUCOSE (test code = 2217) 80 MG/DL BUN (test code = 2208) 18 MG/DL CREATININE (test code = 2214) 1.06 MG/DL eGFR AMER. (test cod e = 61970) 67 ML/MIN/1.73 eGFR NON- AMER. (test code = 33911) 58 ML/MIN/1.73 CALC BUN/CREAT (test code = [...] = 2219) 54 U/L Delfino OrtaCBC W/AUTO [id number] 00:00:00* Test Item Value Reference Range Interpretation [...] ABS NUCLEATED RBCS (test cod e = 53202) 0.00 K/UL COMMENTS (test code = 1016) (NOTE) Delfino Endy YouLIPID [id number] 00:00:00* Test Item Value Reference Range Interpretation Comme nts CHOLESTEROL (test code = 2210) 174 MG/DL TRIGLYCERIDES (test code = 2232) 63 MG/DL HDL CHOLESTEROL (test code = 2220) 87 MG/DL CALC LDL CHOL (test code = 2237) 73 MG/DL RISK RATIO LDL/HDL (test cod e = 2238) 0.84 RATIO Delfino OrtaCOMPREHENSIVE METABOLIC [id number] 00:00:00* Test Item Value Reference Range Interpretation Comme nts GLUCOSE (test code = 2217) 80 MG/DL BUN (test code = 2208) 18 MG/DL CREATININE (test code = 2214) 1.06 MG/DL eGFR AMER. (test cod e = 62223) 67 ML/MIN/1.73 eGFR NON- AMER. (test code = 23545) 58 ML/MIN/1.73 CALC BUN/CREAT (test code = [...] code = 2219) 54 U/L Delfino Schumacher [facility] W/AUTO [id number] 00:00:00* Test Item Value Reference Range Interpretation [...] ABS NUCLEATED RBCS (test cod e = 55875) 0.00 K/UL COMMENTS (test code = 1016) (NOTE) Delfino Schumacher AustinLIPID [id number] 00:00:00* Test Item Value Reference Range Interpretation Comme nts CHOLESTEROL (test code = 2210) 174 MG/DL TRIGLYCERIDES (test code = 2232) 63 MG/DL HDL CHOLESTEROL (test code = 2220) 87 MG/DL CALC LDL CHOL (test code = 2237) 73 MG/DL RISK RATIO LDL/HDL (test cod e = 2238) 0.84 RATIO Delfino OrtaCOMPREHENSIVE METABOLIC [id number] 00:00:00* Test Item Value Reference Range Interpretation Comme nts GLUCOSE (test code = 2217) 80 MG/DL BUN (test code = 2208) 18 MG/DL CREATININE (test code = 2214) 1.06 MG/DL eGFR AMER. (test cod e = 74901) 67 ML/MIN/1.73 eGFR NON- AMER. (test code = 98051) 58 ML/MIN/1.73 CALC BUN/CREAT (test code = [...] = 2219) 54 U/L Delfino OrtaCBC W/AUTO [id number] 00:00:00* Test Item Value Reference Range Interpretation [...] ABS NUCLEATED RBCS (test cod e = 28919) 0.00 K/UL COMMENTS (test code = 1016) (NOTE) Delfino OrtaLIPID [id number] 00:00:00* Test Item Value Reference Range Interpretation Comme nts CHOLESTEROL (test code = 2210) 174 MG/DL TRIGLYCERIDES (test code = 2232) 63 MG/DL HDL CHOLESTEROL (test code = 2220) 87 MG/DL CALC LDL CHOL (test code = 2237) 73 MG/DL RISK RATIO LDL/HDL (test cod e = 2238) 0.84 RATIO Delfino OrtaCOMPREHENSIVE METABOLIC [id number] 00:00:00* Test Item Value Reference Range Interpretation Comme nts GLUCOSE (test code = 2217) 80 MG/DL BUN (test code = 2208) 18 MG/DL CREATININE (test code = 2214) 1.06 MG/DL eGFR AMER. (test cod e = 85000) 67 ML/MIN/1.73 eGFR NON- AMER. (test code = 71893) 58 ML/MIN/1.73 CALC BUN/CREAT (test code = [...] (test code = 2219) 54 U/L [facility]ino [facility] [id number] 00:00:00* Test Item Value Reference Range Interpretation [...] ABS NUCLEATED RBCS (test cod e = 60945) 0.00 K/UL COMMENTS (test code = 1016) (NOTE) Delfino Schumacher AustinLIPID [id number] 00:00:00* Test Item Value Reference Range Interpretation Comme nts CHOLESTEROL (test code = 2210) 174 MG/DL TRIGLYCERIDES (test code = 2232) 63 MG/DL HDL CHOLESTEROL (test code = 2220) 87 MG/DL CALC LDL CHOL (test code = 2237) 73 MG/DL RISK RATIO LDL/HDL (test cod e = 2238) 0.84 RATIO Delfino OrtaCOMPREHENSIVE METABOLIC [id number] 00:00:00* Test Item Value Reference Range Interpretation Comme nts GLUCOSE (test code = 2217) 80 MG/DL BUN (test code = 2208) 18 MG/DL CREATININE (test code = 2214) 1.06 MG/DL eGFR AMER. (test cod e = 13094) 67 ML/MIN/1.73 eGFR NON- AMER. (test code = 44752) 58 ML/MIN/1.73 CALC BUN/CREAT (test code = [...] (test code = 2219) 54 U/L Delfino [facility] [id number] 00:00:00* Test Item Value Reference Range Interpretation [...] ABS NUCLEATED RBCS (test cod e = 64637) 0.00 K/UL COMMENTS (test code = 1016) (NOTE) [facility]AUTO [id number] 00:00:00* Test Item Value Reference Range Interpretation [...] ABS NUCLEATED RBCS (test cod e = 17160) 0.00 K/UL COMMENTS (test code = 1016) (NOTE) Delfino Endy AustinLIPID [id number] 00:00:00* Test Item Value Reference Range Interpretation Comme nts CHOLESTEROL (test code = 2210) 174 MG/DL TRIGLYCERIDES (test code = 2232) 63 MG/DL HDL CHOLESTEROL (test code = 2220) 87 MG/DL CALC LDL CHOL (test code = 2237) 73 MG/DL RISK RATIO LDL/HDL (test cod e = 2238) 0.84 RATIO Delfino OrtaCOMPREHENSIVE METABOLIC [id number] 00:00:00* Test Item Value Reference Range Interpretation Comme nts GLUCOSE (test code = 2217) 80 MG/DL BUN (test code = 2208) 18 MG/DL CREATININE (test code = 2214) 1.06 MG/DL eGFR AMER. (test cod e = 69207) 67 ML/MIN/1.73 eGFR NON- AMER. (test code = 29691) 58 ML/MIN/1.73 CALC BUN/CREAT (test code = [...] code = 2219) 54 U/L Delfino Schumacher [facility] W/AUTO [id number] 00:00:00* Test Item Value Reference Range Interpretation [...] ABS NUCLEATED RBCS (test cod e = 38820) 0.00 K/UL COMMENTS (test code = 1016) (NOTE) Delfino OrtaLIPID [id number] 00:00:00* Test Item Value Reference Range Interpretation Comme nts CHOLESTEROL (test code = 2210) 174 MG/DL TRIGLYCERIDES (test code = 2232) 63 MG/DL HDL CHOLESTEROL (test code = 2220) 87 MG/DL CALC LDL CHOL (test code = 2237) 73 MG/DL RISK RATIO LDL/HDL (test cod e = 2238) 0.84 RATIO Delfino OrtaCOMPREHENSIVE METABOLIC [id number] 00:00:00* Test Item Value Reference Range Interpretation Comme nts GLUCOSE (test code = 2217) 80 MG/DL BUN (test code = 2208) 18 MG/DL CREATININE (test code = 2214) 1.06 MG/DL eGFR AMER. (test cod e = 99895) 67 ML/MIN/1.73 eGFR NON- AMER. (test code = 11583) 58 ML/MIN/1.73 CALC BUN/CREAT (test code = [...] = 2219) 54 U/L Delfino OrtaCBC W/AUTO [id number] 00:00:00* Test Item Value Reference Range Interpretation [...] ABS NUCLEATED RBCS (test cod e = 02162) 0.00 K/UL COMMENTS (test code = 1016) (NOTE) Delfino Schumacher AustinLIPID [id number] 00:00:00* Test Item Value Reference Range Interpretation Comme nts CHOLESTEROL (test code = 2210) 174 MG/DL TRIGLYCERIDES (test code = 2232) 63 MG/DL HDL CHOLESTEROL (test code = 2220) 87 MG/DL CALC LDL CHOL (test code = 2237) 73 MG/DL RISK RATIO LDL/HDL (test cod e = 2238) 0.84 RATIO Delfino OrtaLIPID [id number] 00:00:00* Test Item Value Reference Range Interpretation Comme nts CHOLESTEROL (test code = 2210) 174 MG/DL TRIGLYCERIDES (test code = 2232) 63 MG/DL HDL CHOLESTEROL (test code = 2220) 87 MG/DL CALC LDL CHOL (test code = 2237) 73 MG/DL RISK RATIO LDL/HDL (test cod e = 2238) 0.84 RATIO Delfino OrtaCOMPREHENSIVE METABOLIC [id number] 00:00:00* Test Item Value Reference Range Interpretation Comme nts GLUCOSE (test code = 2217) 80 MG/DL BUN (test code = 2208) 18 MG/DL CREATININE (test code = 2214) 1.06 MG/DL eGFR AMER. (test cod e = 45154) 67 ML/MIN/1.73 eGFR NON- AMER. (test code = 52202) 58 ML/MIN/1.73 CALC BUN/CREAT (test code = [...] = 2219) 54 U/L Delfino OrtaCBC W/AUTO [id number] 00:00:00* Test Item Value Reference Range Interpretation [...] ABS NUCLEATED RBCS (test cod e = 06931) 0.00 K/UL COMMENTS (test code = 1016) (NOTE) Delfino Schumacher [id number] (COVID-19) by RT-PCR (HIGH RISK)2020-01-21 00:00:00* Test Item Value Reference Range Interpretation Comme nts SARS-CoV-2 INTERPRETATION (t est code = 49606) NEGATIVE SOURCE (test code = 55552) NOT SPECIFIED Delfino F HjrrsjFLCD-PkY-8 (COVID-19) by RT-PCR (HIGH RISK)2020-01-21 00:00:00* Test Item Value Reference Range Interpretation Comme nts SARS-CoV-2 INTERPRETATION (t est code = 61646) NEGATIVE SOURCE (test code = 00219) NOT SPECIFIED Delfino F AytcxlVHCW-XhX-3 (COVID-19) by RT-PCR (HIGH RISK)2020-01-21 00:00:00* Test Item Value Reference Range Interpretation Comme nts SARS-CoV-2 INTERPRETATION (t est code = 77633) NEGATIVE SOURCE (test code = 09455) NOT SPECIFIED Delfino F ImnwzsKOQA-PlN-6 (COVID-19) by RT-PCR (HIGH RISK)2020-01-21 00:00:00* Test Item Value Reference Range Interpretation Comme nts SARS-CoV-2 INTERPRETATION (t est code = 88535) NEGATIVE SOURCE (test code = 87744) NOT SPECIFIED Delfino F GlqdikBAPV-PlS-5 (COVID-19) by RT-PCR (HIGH RISK)2020-01-21 00:00:00* Test Item Value Reference Range Interpretation Comme nts SARS-CoV-2 INTERPRETATION (t est code = 17829) NEGATIVE SOURCE (test code = 66473) NOT SPECIFIED Delfino Schumacher NwuqsvSSFW-LmB-1 (COVID-19) by RT-PCR (HIGH RISK)2020-01-21 00:00:00* Test Item Value Reference Range Interpretation Comme nts SARS-CoV-2 INTERPRETATION (t est code = 51349) NEGATIVE SOURCE (test code = 41385) NOT SPECIFIED Delfino Schumacher EbiarsZZQG-XyR-0 (COVID-19) by RT-PCR (HIGH RISK)2020-01-21 00:00:00* Test Item Value Reference Range Interpretation Comme nts SARS-CoV-2 INTERPRETATION (t est code = 31782) NEGATIVE SOURCE (test code = 49597) NOT SPECIFIED SARS-CoV-2 (COVID-19) by RT-PCR (HIGH RISK)2020-01-21 00:00:00* Test Item Value Reference Range Interpretation Comme nts SARS-CoV-2 INTERPRETATION (t est code = 67858) NEGATIVE SOURCE (test code = 58819) NOT SPECIFIED Delfino Schumacher UrseuhWPKU-KqF-5 (COVID-19) by RT-PCR (HIGH RISK)2020-01-21 00:00:00* Test Item Value Reference Range Interpretation Comme nts SARS-CoV-2 INTERPRETATION (t est code = 01671) NEGATIVE SOURCE (test code = 86088) NOT SPECIFIED SARS-CoV-2 (COVID-19) by RT-PCR (HIGH RISK)2020-01-21 00:00:00* Test Item Value Reference Range Interpretation Comme nts SARS-CoV-2 INTERPRETATION (t est code = 48921) NEGATIVE SOURCE (test code = 37760) NOT SPECIFIED Delfino Schumacher SzomtyRJJM-NbQ-9 (COVID-19) by RT-PCR (HIGH RISK)2020-01-21 00:00:00* Test Item Value Reference Range Interpretation Comme nts SARS-CoV-2 INTERPRETATION (t est code = 61565) NEGATIVE SOURCE (test code = 15762) NOT SPECIFIED SARS-CoV-2 (COVID-19) by RT-PCR (HIGH RISK)2020-01-21 00:00:00* Test Item Value Reference Range Interpretation Comme nts SARS-CoV-2 INTERPRETATION (t est code = 77725) NEGATIVE SOURCE (test code = 60411) NOT SPECIFIED Delfino Schumacher AwtxogFFVG-KfC-6 (COVID-19) by RT-PCR (HIGH RISK)2020-01-21 00:00:00* Test Item Value Reference Range Interpretation Comme nts SARS-CoV-2 INTERPRETATION (t est code = 98520) NEGATIVE SOURCE (test code = 88755) NOT SPECIFIED SARS-CoV-2 (COVID-19) by RT-PCR (HIGH RISK)2020-01-21 00:00:00* Test Item Value Reference Range Interpretation Comme nts SARS-CoV-2 INTERPRETATION (t est code = 41934) NEGATIVE SOURCE (test code = 71895) NOT SPECIFIED Delfino F SjinphQELZ-WnE-9 (COVID-19) by RT-PCR (HIGH RISK)2020-01-21 00:00:00* Test Item Value Reference Range Interpretation Comme nts SARS-CoV-2 INTERPRETATION (t est code = 77901) NEGATIVE SOURCE (test code = 52804) NOT SPECIFIED Delfino F WzwtfqWRYO-JuG-4 (COVID-19) by RT-PCR (HIGH RISK)2020-01-21 00:00:00* Test Item Value Reference Range Interpretation Comme nts SARS-CoV-2 INTERPRETATION (t est code = 43717) NEGATIVE SOURCE (test code = 11541) NOT SPECIFIED Delfino F JwidmrNYVL-JoA-2 (COVID-19) by RT-PCR (HIGH RISK)2020-01-21 00:00:00* Test Item Value Reference Range Interpretation Comme nts SARS-CoV-2 INTERPRETATION (t est code = 14498) NEGATIVE SOURCE (test code = 20540) NOT SPECIFIED Delfino F OguhfjUZGU-CqN-9 (COVID-19) by RT-PCR (HIGH RISK)2020-01-21 00:00:00* Test Item Value Reference Range Interpretation Comme nts SARS-CoV-2 INTERPRETATION (t est code = 67926) NEGATIVE SOURCE (test code = 67624) NOT SPECIFIED Delfino F WknvkdNFUN-AtV-3 (COVID-19) by RT-PCR (HIGH RISK)2020-01-21 00:00:00* Test Item Value Reference Range Interpretation Comme nts SARS-CoV-2 INTERPRETATION (t est code = 82932) NEGATIVE SOURCE (test code = 40966) NOT SPECIFIED Delfino F AwztlbHVWS-TpO-0 (COVID-19) by RT-PCR (HIGH RISK)2020-01-21 00:00:00* Test Item Value Reference Range Interpretation Comme nts SARS-CoV-2 INTERPRETATION (t est code = 52466) NEGATIVE SOURCE (test code = 71925) NOT SPECIFIED Delfino Schumacher GcqefpXGEX-UuB-4 (COVID-19) by RT-PCR (HIGH RISK)2020-01-21 00:00:00* Test Item Value Reference Range Interpretation Comme nts SARS-CoV-2 INTERPRETATION (t est code = 94193) NEGATIVE SOURCE (test code = 25135) NOT SPECIFIED Delfino Schumacher LukuwuMQMR-HnG-0 (COVID-19) by RT-PCR (HIGH RISK)2020-01-21 00:00:00* Test Item Value Reference Range Interpretation Comme nts SARS-CoV-2 INTERPRETATION (t est code = 55364) NEGATIVE SOURCE (test code = 92573) NOT SPECIFIED Delfino Schumacher DblbvgEVFG-RrB-4 (COVID-19) by RT-PCR (HIGH RISK)2020-01-21 00:00:00* Test Item Value Reference Range Interpretation Comme nts SARS-CoV-2 INTERPRETATION (t est code = 90327) NEGATIVE SOURCE (test code = 13690) NOT SPECIFIED Delfino Schumacher YouCBC W/AUTO [id number] 00:00:00* Test Item Value Reference Range Interpretation [...] 1015) 186 K/UL Delfino F YouCOMPREHENSIVE METABOLIC [id number] 00:00:00* Test Item Value Reference Range Interpretation Comme nts GLUCOSE (test code = 2217) 86 MG/DL BUN (test code = 2208) 16 MG/DL CREATININE (test code = 2214) 0.90 MG/DL eGFR AMER. (test cod e = 26384) 83 ML/MIN/1.73 eGFR NON- AMER. (test code = 10083) 71 ML/MIN/1.73 CALC BUN/CREAT (test code = [...] = 2219) 29 U/L Delfino OrtaCBC W/AUTO [id number] 00:00:00* Test Item Value Reference Range Interpretation [...] = 1015) 186 K/UL Delfino OrtaCOMPREHENSIVE METABOLIC [id number] 00:00:00* Test Item Value Reference Range Interpretation Comme nts GLUCOSE (test code = 2217) 86 MG/DL BUN (test code = 2208) 16 MG/DL CREATININE (test code = 2214) 0.90 MG/DL eGFR AMER. (test cod e = 99004) 83 ML/MIN/1.73 eGFR NON- AMER. (test code = 02091) 71 ML/MIN/1.73 CALC BUN/CREAT (test code = [...] = 2219) 29 U/L Delfino OrtaCBC W/AUTO [id number] 00:00:00* Test Item Value Reference Range Interpretation [...] = 1015) 186 K/UL Delfino OrtaCOMPREHENSIVE METABOLIC [id number] 00:00:00* Test Item Value Reference Range Interpretation Comme nts GLUCOSE (test code = 2217) 86 MG/DL BUN (test code = 2208) 16 MG/DL CREATININE (test code = 2214) 0.90 MG/DL eGFR AMER. (test cod e = 54880) 83 ML/MIN/1.73 eGFR NON- AMER. (test code = 29297) 71 ML/MIN/1.73 CALC BUN/CREAT (test code = [...] = 2219) 29 U/L Delfino OrtaCBC W/AUTO [id number] 00:00:00* Test Item Value Reference Range Interpretation [...] = 1015) 186 K/UL Delfino OrtaCOMPREHENSIVE METABOLIC [id number] 00:00:00* Test Item Value Reference Range Interpretation Comme nts GLUCOSE (test code = 2217) 86 MG/DL BUN (test code = 2208) 16 MG/DL CREATININE (test code = 2214) 0.90 MG/DL eGFR AMER. (test cod e = 89422) 83 ML/MIN/1.73 eGFR NON- AMER. (test code = 00287) 71 ML/MIN/1.73 CALC BUN/CREAT (test code = [...] = 2219) 29 U/L Delfino OrtaCBC W/AUTO [id number] 00:00:00* Test Item Value Reference Range Interpretation [...] = 1015) 186 K/UL Delfino OrtaCOMPREHENSIVE METABOLIC [id number] 00:00:00* Test Item Value Reference Range Interpretation Comme nts GLUCOSE (test code = 2217) 86 MG/DL BUN (test code = 2208) 16 MG/DL CREATININE (test code = 2214) 0.90 MG/DL eGFR AMER. (test cod e = 29848) 83 ML/MIN/1.73 eGFR NON- AMER. (test code = 23778) 71 ML/MIN/1.73 CALC BUN/CREAT (test code = [...] = 2219) 29 U/L Delfino OrtaCBC W/AUTO [id number] 00:00:00* Test Item Value Reference Range Interpretation [...] = 1015) 186 K/UL Delfino OrtaCOMPREHENSIVE METABOLIC [id number] 00:00:00* Test Item Value Reference Range Interpretation Comme nts GLUCOSE (test code = 2217) 86 MG/DL BUN (test code = 2208) 16 MG/DL CREATININE (test code = 2214) 0.90 MG/DL eGFR AMER. (test cod e = 44120) 83 ML/MIN/1.73 eGFR NON- AMER. (test code = 00468) 71 ML/MIN/1.73 CALC BUN/CREAT (test code = [...] = 2219) 29 U/L Delfino OrtaCBC W/AUTO [id number] 00:00:00* Test Item Value Reference Range Interpretation [...] = 1015) 186 K/UL Delfino OrtaCOMPREHENSIVE METABOLIC [id number] 00:00:00* Test Item Value Reference Range Interpretation Comme nts GLUCOSE (test code = 2217) 86 MG/DL BUN (test code = 2208) 16 MG/DL CREATININE (test code = 2214) 0.90 MG/DL eGFR AMER. (test cod e = 26110) 83 ML/MIN/1.73 eGFR NON- AMER. (test code = 59359) 71 ML/MIN/1.73 CALC BUN/CREAT (test code = [...] code = 2219) 29 U/L COMPREHENSIVE METABOLIC [id number] 00:00:00* Test Item Value Reference Range Interpretation Comme nts GLUCOSE (test code = 2217) 86 MG/DL BUN (test code = 2208) 16 MG/DL CREATININE (test code = 2214) 0.90 MG/DL eGFR AMER. (test cod e = 73462) 83 ML/MIN/1.73 eGFR NON- AMER. (test code = 88750) 71 ML/MIN/1.73 CALC BUN/CREAT (test code = [...] = 2219) 29 U/L Delfino OrtaCBC W/AUTO [id number] 00:00:00* Test Item Value Reference Range Interpretation [...] code = 1015) 186 K/UL CBC W/AUTO [id number] 00:00:00* Test Item Value Reference Range Interpretation [...] = 1015) 186 K/UL Delfino OrtaCOMPREHENSIVE METABOLIC [id number] 00:00:00* Test Item Value Reference Range Interpretation Comme nts GLUCOSE (test code = 2217) 86 MG/DL BUN (test code = 2208) 16 MG/DL CREATININE (test code = 2214) 0.90 MG/DL eGFR AMER. (test cod e = 10083) 83 ML/MIN/1.73 eGFR NON- AMER. (test code = 39897) 71 ML/MIN/1.73 CALC BUN/CREAT (test code = [...] code = 2219) 29 U/L COMPREHENSIVE METABOLIC [id number] 00:00:00* Test Item Value Reference Range Interpretation Comme nts GLUCOSE (test code = 2217) 86 MG/DL BUN (test code = 2208) 16 MG/DL CREATININE (test code = 2214) 0.90 MG/DL eGFR AMER. (test cod e = 50592) 83 ML/MIN/1.73 eGFR NON- AMER. (test code = 72233) 71 ML/MIN/1.73 CALC BUN/CREAT (test code = [...] 2219) 29 U/L Delfino Schumacher YouCBC W/AUTO [id number] 00:00:00* Test Item Value Reference Range Interpretation [...] code = 1015) 186 K/UL CBC W/AUTO [id number] 00:00:00* Test Item Value Reference Range Interpretation [...] = 1015) 186 K/UL Delfino OrtaCOMPREHENSIVE METABOLIC [id number] 00:00:00* Test Item Value Reference Range Interpretation Comme nts GLUCOSE (test code = 2217) 86 MG/DL BUN (test code = 2208) 16 MG/DL CREATININE (test code = 2214) 0.90 MG/DL eGFR AMER. (test cod e = 87874) 83 ML/MIN/1.73 eGFR NON- AMER. (test code = 67977) 71 ML/MIN/1.73 CALC BUN/CREAT (test code = [...] code = 2219) 29 U/L COMPREHENSIVE METABOLIC [id number] 00:00:00* Test Item Value Reference Range Interpretation Comme nts GLUCOSE (test code = 2217) 86 MG/DL BUN (test code = 2208) 16 MG/DL CREATININE (test code = 2214) 0.90 MG/DL eGFR AMER. (test cod e = 19023) 83 ML/MIN/1.73 eGFR NON- AMER. (test code = 51857) 71 ML/MIN/1.73 CALC BUN/CREAT (test code = [...] code = 2219) 29 U/L [facility] [id number] 00:00:00* Test Item Value Reference Range Interpretation [...] code = 1015) 186 K/UL COMPREHENSIVE METABOLIC [id number] 00:00:00* Test Item Value Reference Range Interpretation Comme nts GLUCOSE (test code = 2217) 86 MG/DL BUN (test code = 2208) 16 MG/DL CREATININE (test code = 2214) 0.90 MG/DL eGFR AMER. (test cod e = 54173) 83 ML/MIN/1.73 eGFR NON- AMER. (test code = 25030) 71 ML/MIN/1.73 CALC BUN/CREAT (test code = [...] code = 2219) 29 U/L CBC W/AUTO [id number] 00:00:00* Test Item Value Reference Range Interpretation [...] 1015) 186 K/UL Delfino F YouCOMPREHENSIVE METABOLIC [id number] 00:00:00* Test Item Value Reference Range Interpretation Comme nts GLUCOSE (test code = 2217) 86 MG/DL BUN (test code = 2208) 16 MG/DL CREATININE (test code = 2214) 0.90 MG/DL eGFR AMER. (test cod e = 63295) 83 ML/MIN/1.73 eGFR NON- AMER. (test code = 35556) 71 ML/MIN/1.73 CALC BUN/CREAT (test code = [...] 2219) 29 U/L Delfino Schumacher YouCBC W/AUTO [id number] 00:00:00* Test Item Value Reference Range Interpretation [...] code = 1015) 186 K/UL CBC W/AUTO [id number] 00:00:00* Test Item Value Reference Range Interpretation [...] = 1015) 186 K/UL Delfino OrtaCOMPREHENSIVE METABOLIC [id number] 00:00:00* Test Item Value Reference Range Interpretation Comme nts GLUCOSE (test code = 2217) 86 MG/DL BUN (test code = 2208) 16 MG/DL CREATININE (test code = 2214) 0.90 MG/DL eGFR AMER. (test cod e = 14078) 83 ML/MIN/1.73 eGFR NON- AMER. (test code = 62440) 71 ML/MIN/1.73 CALC BUN/CREAT (test code = [...] = 2219) 29 U/L Delfino OrtaCBC W/AUTO [id number] 00:00:00* Test Item Value Reference Range Interpretation [...] = 1015) 186 K/UL Delfino OrtaCOMPREHENSIVE METABOLIC [id number] 00:00:00* Test Item Value Reference Range Interpretation Comme nts GLUCOSE (test code = 2217) 86 MG/DL BUN (test code = 2208) 16 MG/DL CREATININE (test code = 2214) 0.90 MG/DL eGFR AMER. (test cod e = 79489) 83 ML/MIN/1.73 eGFR NON- AMER. (test code = 75350) 71 ML/MIN/1.73 CALC BUN/CREAT (test code = [...] = 2219) 29 U/L Delfino OrtaCBC W/AUTO [id number] 00:00:00* Test Item Value Reference Range Interpretation [...] = 1015) 186 K/UL Delfino OrtaCOMPREHENSIVE METABOLIC [id number] 00:00:00* Test Item Value Reference Range Interpretation Comme nts GLUCOSE (test code = 2217) 86 MG/DL BUN (test code = 2208) 16 MG/DL CREATININE (test code = 2214) 0.90 MG/DL eGFR AMER. (test cod e = 41903) 83 ML/MIN/1.73 eGFR NON- AMER. (test code = 23918) 71 ML/MIN/1.73 CALC BUN/CREAT (test code = [...] = 2219) 29 U/L Delfino OrtaCBC W/AUTO [id number] 00:00:00* Test Item Value Reference Range Interpretation [...] 1015) 186 K/UL Delfino Schumacher AustinCOMPREHENSIVE METABOLIC [id number] 00:00:00* Test Item Value Reference Range Interpretation Comme nts GLUCOSE (test code = 2217) 86 MG/DL BUN (test code = 2208) 16 MG/DL CREATININE (test code = 2214) 0.90 MG/DL eGFR AMER. (test cod e = 44868) 83 ML/MIN/1.73 eGFR NON- AMER. (test code = 08740) 71 ML/MIN/1.73 CALC BUN/CREAT (test code = [...] code = 2219) 29 U/L Delfino Schumacher AustinCOMPREHENSIVE METABOLIC [id number] 00:00:00* Test Item Value Reference Range Interpretation Comme nts GLUCOSE (test code = 2217) 86 MG/DL BUN (test code = 2208) 16 MG/DL CREATININE (test code = 2214) 0.90 MG/DL eGFR AMER. (test cod e = 31743) 83 ML/MIN/1.73 eGFR NON- AMER. (test code = 99234) 71 ML/MIN/1.73 CALC BUN/CREAT (test code = [...] = 2219) 29 U/L Delfino OrtaCBC W/AUTO [id number] 00:00:00* Test Item Value Reference Range Interpretation [...] = 1015) 186 K/UL Delfino OrtaCOMPREHENSIVE METABOLIC [id number] 00:00:00* Test Item Value Reference Range Interpretation Comme nts GLUCOSE (test code = 2217) 86 MG/DL BUN (test code = 2208) 16 MG/DL CREATININE (test code = 2214) 0.90 MG/DL eGFR AMER. (test cod e = 89350) 83 ML/MIN/1.73 eGFR NON- AMER. (test code = 99044) 71 ML/MIN/1.73 CALC BUN/CREAT (test code = [...] = 2219) 29 U/L Delfino OrtaCBC W/AUTO [id number] 00:00:00* Test Item Value Reference Range Interpretation [...] = 1015) 186 K/UL Delfino OrtaCOMPREHENSIVE METABOLIC [id number] 00:00:00* Test Item Value Reference Range Interpretation Comme nts GLUCOSE (test code = 2217) 86 MG/DL BUN (test code = 2208) 16 MG/DL CREATININE (test code = 2214) 0.90 MG/DL eGFR AMER. (test cod e = 71091) 83 ML/MIN/1.73 eGFR NON- AMER. (test code = 04082) 71 ML/MIN/1.73 CALC BUN/CREAT (test code = [...] code = 2219) 29 U/L Delfino Endy AustinCBC W/AUTO [id number] 00:00:00* Test Item Value Reference Range Interpretation [...] (test code = 1015) 186 K/UL Delfino Edny AustinCBC W/AUTO [id number] 00:00:00* Test Item Value Reference Range Interpretation [...] = 1015) 186 K/UL Delfino OrtaCOMPREHENSIVE METABOLIC [id number] 00:00:00* Test Item Value Reference Range Interpretation Comme nts GLUCOSE (test code = 2217) 86 MG/DL BUN (test code = 2208) 16 MG/DL CREATININE (test code = 2214) 0.90 MG/DL eGFR AMER. (test cod e = 30431) 83 ML/MIN/1.73 eGFR NON- AMER. (test code = 55202) 71 ML/MIN/1.73 CALC BUN/CREAT (test code = [...] = 2219) 29 U/L Delfino OrtaCBC W/AUTO [id number] 00:00:00* Test Item Value Reference Range Interpretation [...] = 1015) 186 K/UL Delfino OrtaCOMPREHENSIVE METABOLIC [id number] 00:00:00* Test Item Value Reference Range Interpretation Comme nts GLUCOSE (test code = 2217) 86 MG/DL BUN (test code = 2208) 16 MG/DL CREATININE (test code = 2214) 0.90 MG/DL eGFR AMER. (test cod e = 49269) 83 ML/MIN/1.73 eGFR NON- AMER. (test code = 43988) 71 ML/MIN/1.73 CALC BUN/CREAT (test code = [...] (test code = 2219) 29 U/L Delfino OrtaC W/AUTO [id number] 00:00:00* Test Item Value Reference Range Interpretation [...] (test code = 1016) (NOTE) Delfino Schumacher [facility] W/AUTO [id number] 00:00:00* Test Item Value Reference Range Interpretation [...] COMMENTS (test code = 1016) (NOTE) [facility] [id number] 00:00:00* Test Item Value Reference Range Interpretation [...] (test code = 1016) (NOTE) Delfino Schumacher [place]CBC W/AUTO [id number] 00:00:00* Test Item Value Reference Range Interpretation [...] (test code = 1016) (NOTE) Delfino Schumacher WalesCBC W/AUTO [id number] 00:00:00* Test Item Value Reference Range Interpretation [...] code = 1016) (NOTE) Delfino OrtaC W/AUTO [id number] 00:00:00* Test Item Value Reference Range Interpretation [...] COMMENTS (test code = 1016) (NOTE) [facility] W/AUTO [id number] 00:00:00* Test Item Value Reference Range Interpretation [...] code = 1016) (NOTE) Delfino OrtaCBC W/AUTO [id number] 00:00:00* Test Item Value Reference Range Interpretation [...] (test code = 1016) (NOTE) CBC W/AUTO [id number] 00:00:00* Test Item Value Reference Range Interpretation [...] code = 1016) (NOTE) Delfino OrtaCBC W/AUTO [id number] 00:00:00* Test Item Value Reference Range Interpretation [...] (test code = 1016) (NOTE) CBC W/AUTO [id number] 00:00:00* Test Item Value Reference Range Interpretation [...] code = 1016) (NOTE) Delfino OrtaCBC W/AUTO [id number] 00:00:00* Test Item Value Reference Range Interpretation [...] (test code = 1016) (NOTE) CBC W/AUTO [id number] 00:00:00* Test Item Value Reference Range Interpretation [...] code = 1016) (NOTE) Delfino OrtaCBC W/AUTO [id number] 00:00:00* Test Item Value Reference Range Interpretation [...] (test code = 1016) (NOTE) CBC W/AUTO [id number] 00:00:00* Test Item Value Reference Range Interpretation [...] (test code = 1016) (NOTE) Delfino Schumacher [facility] W/AUTO [id number] 00:00:00* Test Item Value Reference Range Interpretation [...] (test code = 1016) (NOTE) Delfino Schumacher [facility] W/AUTO [id number] 00:00:00* Test Item Value Reference Range Interpretation [...] (test code = 1016) (NOTE) Delfino Schumacher Lela[facility] W/AUTO [id number] 00:00:00* Test Item Value Reference Range Interpretation [...] (test code = 1016) (NOTE) Delfino Schumacher LelaC W/AUTO [id number] 00:00:00* Test Item Value Reference Range Interpretation [...] (test code = 1016) (NOTE) Delfino Schumacher [facility] W/AUTO [id number] 00:00:00* Test Item Value Reference Range Interpretation [...] COMMENTS (test code = 1016) (NOTE) [facility] W/AUTO [id number] 00:00:00* Test Item Value Reference Range Interpretation [...] code = 1016) (NOTE) Delfino OrtaC W/AUTO [id number] 00:00:00* Test Item Value Reference Range Interpretation [...] COMMENTS (test code = 1016) (NOTE) [facility] W/AUTO [id number] 00:00:00* Test Item Value Reference Range Interpretation [...] = 1016) (NOTE) Delfino Schumacher YouCOMPREHENSIVE METABOLIC [id number] 00:00:00* Test Item Value Reference Range Interpretation Comme nts GLUCOSE (test code = 2217) 92 MG/DL BUN (test code = 2208) 20 MG/DL CREATININE (test code = 2214) 1.31 MG/DL eGFR AMER. (test cod e = ) 53 ML/MIN/1.73 eGFR NON- AMER. (test code = 27738) 45 ML/MIN/1.73 CALC BUN/CREAT (test code = [...] (test code = 2219) 16 U/L Delfino OrtaPlexxiC W/AUTO [id number] 00:00:00* Test Item Value Reference Range Interpretation [...] (test code = 1016) (NOTE) Delfino Schumacher Event[facility] W/AUTO [id number] 00:00:00* Test Item Value Reference Range Interpretation [...] 1016) (NOTE) Delfino Schumacher [facility] [id number] 00:00:00* Test Item Value Reference Range Interpretation Comme nts DIANNA SPECIES (test code = ) NEGATIVE G. VAGINALIS (test code = ) POSITIVE T. VAGINALIS (test code = 28236) NEGATIVE Delfino Schumacher YouCOMPREHENSIVE METABOLIC [id number] 00:00:00* Test Item Value Reference Range Interpretation Comme nts GLUCOSE (test code = 2217) 92 MG/DL BUN (test code = 2208) 20 MG/DL CREATININE (test code = 2214) 1.31 MG/DL eGFR AMER. (test cod e = 59660) 53 ML/MIN/1.73 eGFR NON- AMER. (test code = 39683) 45 ML/MIN/1.73 CALC BUN/CREAT (test code = [...] = 2219) 16 U/L Delfino OrtaCBC W/AUTO [id number] 00:00:00* Test Item Value Reference Range Interpretation [...] = 1016) (NOTE) Delfino OrtaVAGINAL PATHOGENS DNA [id number] 00:00:00* Test Item Value Reference Range Interpretation Comme nts DIANNA SPECIES (test code = 22230) NEGATIVE G. VAGINALIS (test code = ) POSITIVE T. VAGINALIS (test code = ) NEGATIVE Delfino OrtaCOMPREHENSIVE METABOLIC [id number] 00:00:00* Test Item Value Reference Range Interpretation Comme nts GLUCOSE (test code = 2217) 92 MG/DL BUN (test code = 2208) 20 MG/DL CREATININE (test code = 2214) 1.31 MG/DL eGFR AMER. (test cod e = 36144) 53 ML/MIN/1.73 eGFR NON- AMER. (test code = 34031) 45 ML/MIN/1.73 CALC BUN/CREAT (test code = [...] 2219) 16 U/L Delfino Schumacher YouCBC W/AUTO [id number] 00:00:00* Test Item Value Reference Range Interpretation [...] 1016) (NOTE) Delfino Schumacher YouVAGINAL PATHOGENS DNA [id number] 00:00:00* Test Item Value Reference Range Interpretation Comme nts DIANNA SPECIES (test code = ) NEGATIVE G. VAGINALIS (test code = ) POSITIVE T. VAGINALIS (test code = ) NEGATIVE Delfino Schumacher YouCOMPREHENSIVE METABOLIC [id number] 00:00:00* Test Item Value Reference Range Interpretation Comme nts GLUCOSE (test code = 7) 92 MG/DL BUN (test code = 8) 20 MG/DL CREATININE (test code = 2214) 1.31 MG/DL eGFR AMER. (test cod e = 83720) 53 ML/MIN/1.73 eGFR NON- AMER. (test code = 05760) 45 ML/MIN/1.73 CALC BUN/CREAT (test code = [...] = 2219) 16 U/L Delfino OrtaCBC W/AUTO [id number] 00:00:00* Test Item Value Reference Range Interpretation [...] = 1016) (NOTE) Delfino OrtaVAGINAL PATHOGENS DNA [id number] 00:00:00* Test Item Value Reference Range Interpretation Comme nts DIANNA SPECIES (test code = ) NEGATIVE G. VAGINALIS (test code = ) POSITIVE T. VAGINALIS (test code = ) NEGATIVE Delfino OrtaCOMPREHENSIVE METABOLIC [id number] 00:00:00* Test Item Value Reference Range Interpretation Comme nts GLUCOSE (test code = 2217) 92 MG/DL BUN (test code = 2208) 20 MG/DL CREATININE (test code = 2214) 1.31 MG/DL eGFR AMER. (test cod e = 46551) 53 ML/MIN/1.73 eGFR NON- AMER. (test code = 28614) 45 ML/MIN/1.73 CALC BUN/CREAT (test code = [...] 2219) 16 U/L Delfino Schumacher YouCBC W/AUTO [id number] 00:00:00* Test Item Value Reference Range Interpretation [...] = 1016) (NOTE) Delfino OrtaVAGINAL PATHOGENS DNA [id number] 00:00:00* Test Item Value Reference Range Interpretation Comme nts DIANNA SPECIES (test code = ) NEGATIVE G. VAGINALIS (test code = ) POSITIVE T. VAGINALIS (test code = ) NEGATIVE Delfino OrtaCOMPREHENSIVE METABOLIC [id number] 00:00:00* Test Item Value Reference Range Interpretation Comme nts GLUCOSE (test code = 2217) 92 MG/DL BUN (test code = 2208) 20 MG/DL CREATININE (test code = 2214) 1.31 MG/DL eGFR AMER. (test cod e = 26208) 53 ML/MIN/1.73 eGFR NON- AMER. (test code = 78936) 45 ML/MIN/1.73 CALC BUN/CREAT (test code = [...] = 2219) 16 U/L Delfino OrtaCBC W/AUTO [id number] 00:00:00* Test Item Value Reference Range Interpretation [...] 1016) (NOTE) Delfino Schumacher AustinVAGINAL PATHOGENS DNA [id number] 00:00:00* Test Item Value Reference Range Interpretation Comme nts DIANNA SPECIES (test code = ) NEGATIVE G. VAGINALIS (test code = ) POSITIVE T. VAGINALIS (test code = ) NEGATIVE Delfino OrtaCOMPREHENSIVE METABOLIC [id number] 00:00:00* Test Item Value Reference Range Interpretation Comme nts GLUCOSE (test code = 2217) 92 MG/DL BUN (test code = 8) 20 MG/DL CREATININE (test code = 2214) 1.31 MG/DL eGFR AMER. (test cod e = 93183) 53 ML/MIN/1.73 eGFR NON- AMER. (test code = 25895) 45 ML/MIN/1.73 CALC BUN/CREAT (test code = [...] = 2219) 16 U/L Delfino OrtaCBC W/AUTO [id number] 00:00:00* Test Item Value Reference Range Interpretation [...] = 1016) (NOTE) Delfino OrtaVAGINAL PATHOGENS DNA [id number] 00:00:00* Test Item Value Reference Range Interpretation Comme nts DIANNA SPECIES (test code = ) NEGATIVE G. VAGINALIS (test code = ) POSITIVE T. VAGINALIS (test code = ) NEGATIVE COMPREHENSIVE METABOLIC [id number] 00:00:00* Test Item Value Reference Range Interpretation Comme nts GLUCOSE (test code = 2217) 92 MG/DL BUN (test code = 2208) 20 MG/DL CREATININE (test code = 2214) 1.31 MG/DL eGFR AMER. (test cod e = 70210) 53 ML/MIN/1.73 eGFR NON- AMER. (test code = 41139) 45 ML/MIN/1.73 CALC BUN/CREAT (test code = [...] ALT (test code = 2219) 16 U/L VAGINAL PATHOGENS DNA [id number] 00:00:00* Test Item Value Reference Range Interpretation Comme nts DIANNA SPECIES (test code = ) NEGATIVE G. VAGINALIS (test code = ) POSITIVE T. VAGINALIS (test code = ) NEGATIVE Delfino Schumacher YouCBC W/AUTO [id number] 00:00:00* Test Item Value Reference Range Interpretation [...] (test code = 1016) (NOTE) COMPREHENSIVE METABOLIC [id number] 00:00:00* Test Item Value Reference Range Interpretation Comme nts GLUCOSE (test code = 2217) 92 MG/DL BUN (test code = 2208) 20 MG/DL CREATININE (test code = 2214) 1.31 MG/DL eGFR AMER. (test cod e = 21310) 53 ML/MIN/1.73 eGFR NON- AMER. (test code = 77405) 45 ML/MIN/1.73 CALC BUN/CREAT (test code = [...] 2219) 16 U/L Delfino Schumacher YouCBC W/AUTO [id number] 00:00:00* Test Item Value Reference Range Interpretation [...] 1016) (NOTE) Delfino Schumacher YouVAGINAL PATHOGENS DNA [id number] 00:00:00* Test Item Value Reference Range Interpretation Comme nts DIANNA SPECIES (test code = ) NEGATIVE G. VAGINALIS (test code = ) POSITIVE T. VAGINALIS (test code = ) NEGATIVE COMPREHENSIVE METABOLIC [id number] 00:00:00* Test Item Value Reference Range Interpretation Comme nts GLUCOSE (test code = 7) 92 MG/DL BUN (test code = 8) 20 MG/DL CREATININE (test code = 2214) 1.31 MG/DL eGFR AMER. (test cod e = 58587) 53 ML/MIN/1.73 eGFR NON- AMER. (test code = 16615) 45 ML/MIN/1.73 CALC BUN/CREAT (test code = [...] ALT (test code = 2219) 16 U/L VAGINAL PATHOGENS DNA [id number] 00:00:00* Test Item Value Reference Range Interpretation Comme nts DIANNA SPECIES (test code = ) NEGATIVE G. VAGINALIS (test code = ) POSITIVE T. VAGINALIS (test code = ) NEGATIVE [facility] [id number] 00:00:00* Test Item Value Reference Range Interpretation [...] (test code = 1016) (NOTE) COMPREHENSIVE METABOLIC [id number] 00:00:00* Test Item Value Reference Range Interpretation Comme nts GLUCOSE (test code = 2217) 92 MG/DL BUN (test code = 2208) 20 MG/DL CREATININE (test code = 2214) 1.31 MG/DL eGFR AMER. (test cod e = 21060) 53 ML/MIN/1.73 eGFR NON- AMER. (test code = 28166) 45 ML/MIN/1.73 CALC BUN/CREAT (test code = [...] code = 2219) 16 U/L Delfino Schumacher [facility] W/AUTO [id number] 00:00:00* Test Item Value Reference Range Interpretation [...] = 1016) (NOTE) Delfino OrtaVAGINAL PATHOGENS DNA [id number] 00:00:00* Test Item Value Reference Range Interpretation Comme nts DIANNA SPECIES (test code = ) NEGATIVE G. VAGINALIS (test code = 69506) POSITIVE T. VAGINALIS (test code = 43818) NEGATIVE COMPREHENSIVE METABOLIC [id number] 00:00:00* Test Item Value Reference Range Interpretation Comme nts GLUCOSE (test code = 2217) 92 MG/DL BUN (test code = 2208) 20 MG/DL CREATININE (test code = 2214) 1.31 MG/DL eGFR AMER. (test cod e = 03781) 53 ML/MIN/1.73 eGFR NON- AMER. (test code = 03327) 45 ML/MIN/1.73 CALC BUN/CREAT (test code = [...] ALT (test code = 2219) 16 U/L VAGINAL PATHOGENS DNA [id number] 00:00:00* Test Item Value Reference Range Interpretation Comme nts DIANNA SPECIES (test code = ) NEGATIVE G. VAGINALIS (test code = 33946) POSITIVE T. VAGINALIS (test code = 74744) NEGATIVE Delfino OrtaCBC W/AUTO [id number] 00:00:00* Test Item Value Reference Range Interpretation [...] (test code = 1016) (NOTE) COMPREHENSIVE METABOLIC [id number] 00:00:00* Test Item Value Reference Range Interpretation Comme nts GLUCOSE (test code = 2217) 92 MG/DL BUN (test code = 2208) 20 MG/DL CREATININE (test code = 2214) 1.31 MG/DL eGFR AMER. (test cod e = 79372) 53 ML/MIN/1.73 eGFR NON- AMER. (test code = 30282) 45 ML/MIN/1.73 CALC BUN/CREAT (test code = [...] (test code = 2219) 16 U/L Delfino F AustinVAGINAL PATHOGENS DNA [id number] 00:00:00* Test Item Value Reference Range Interpretation Comme nts DIANNA SPECIES (test code = ) NEGATIVE G. VAGINALIS (test code = ) POSITIVE T. VAGINALIS (test code = ) NEGATIVE CBC W/AUTO [id number] 00:00:00* Test Item Value Reference Range Interpretation [...] code = 1016) (NOTE) Delfino OrtaCOMPREHENSIVE METABOLIC [id number] 00:00:00* Test Item Value Reference Range Interpretation Comme nts GLUCOSE (test code = 2217) 92 MG/DL BUN (test code = 2208) 20 MG/DL CREATININE (test code = 2214) 1.31 MG/DL eGFR AMER. (test cod e = 55924) 53 ML/MIN/1.73 eGFR NON- AMER. (test code = 49308) 45 ML/MIN/1.73 CALC BUN/CREAT (test code = [...] ALT (test code = 2219) 16 U/L VAGINAL PATHOGENS DNA [id number] 00:00:00* Test Item Value Reference Range Interpretation Comme nts DIANNA SPECIES (test code = ) NEGATIVE G. VAGINALIS (test code = ) POSITIVE T. VAGINALIS (test code = ) NEGATIVE [facility] [id number] 00:00:00* Test Item Value Reference Range Interpretation [...] (test code = 1016) (NOTE) COMPREHENSIVE METABOLIC [id number] 00:00:00* Test Item Value Reference Range Interpretation Comme nts GLUCOSE (test code = 2217) 92 MG/DL BUN (test code = 2208) 20 MG/DL CREATININE (test code = 2214) 1.31 MG/DL eGFR AMER. (test cod e = 74653) 53 ML/MIN/1.73 eGFR NON- AMER. (test code = 02590) 45 ML/MIN/1.73 CALC BUN/CREAT (test code = [...] = 2219) 16 U/L Delfino OrtaCBC W/AUTO [id number] 00:00:00* Test Item Value Reference Range Interpretation [...] (test code = 1016) (NOTE) Delfino F YouVAGINAL PATHOGENS DNA [id number] 00:00:00* Test Item Value Reference Range Interpretation Comme nts DIANNA SPECIES (test code = ) NEGATIVE G. VAGINALIS (test code = ) POSITIVE T. VAGINALIS (test code = ) NEGATIVE Delfino Schumacher YouCOMPREHENSIVE METABOLIC [id number] 00:00:00* Test Item Value Reference Range Interpretation Comme nts GLUCOSE (test code = 2217) 92 MG/DL BUN (test code = 2208) 20 MG/DL CREATININE (test code = 2214) 1.31 MG/DL eGFR AMER. (test cod e = 16964) 53 ML/MIN/1.73 eGFR NON- AMER. (test code = 11281) 45 ML/MIN/1.73 CALC BUN/CREAT (test code = [...] = 2219) 16 U/L Delfino OrtaCBC W/AUTO [id number] 00:00:00* Test Item Value Reference Range Interpretation [...] = 1016) (NOTE) Delfino OrtaVAGINAL PATHOGENS DNA [id number] 00:00:00* Test Item Value Reference Range Interpretation Comme nts DIANNA SPECIES (test code = ) NEGATIVE G. VAGINALIS (test code = ) POSITIVE T. VAGINALIS (test code = ) NEGATIVE Delfino OrtaCOMPREHENSIVE METABOLIC [id number] 00:00:00* Test Item Value Reference Range Interpretation Comme nts GLUCOSE (test code = 2217) 92 MG/DL BUN (test code = 2208) 20 MG/DL CREATININE (test code = 2214) 1.31 MG/DL eGFR AMER. (test cod e = 06534) 53 ML/MIN/1.73 eGFR NON- AMER. (test code = 60918) 45 ML/MIN/1.73 CALC BUN/CREAT (test code = [...] = 2219) 16 U/L Delfino OrtaCBC W/AUTO [id number] 00:00:00* Test Item Value Reference Range Interpretation [...] = 1016) (NOTE) Delfino OrtaVAGINAL PATHOGENS DNA [id number] 00:00:00* Test Item Value Reference Range Interpretation Comme nts DIANNA SPECIES (test code = ) NEGATIVE G. VAGINALIS (test code = ) POSITIVE T. VAGINALIS (test code = ) NEGATIVE Delfino OrtaCOMPREHENSIVE METABOLIC [id number] 00:00:00* Test Item Value Reference Range Interpretation Comme nts GLUCOSE (test code = 2217) 92 MG/DL BUN (test code = 2208) 20 MG/DL CREATININE (test code = 2214) 1.31 MG/DL eGFR AMER. (test cod e = 31695) 53 ML/MIN/1.73 eGFR NON- AMER. (test code = 69169) 45 ML/MIN/1.73 CALC BUN/CREAT (test code = [...] = 2219) 16 U/L Delfino OrtaCBC W/AUTO [id number] 00:00:00* Test Item Value Reference Range Interpretation [...] = 1016) (NOTE) Delfino OrtaVAGINAL PATHOGENS DNA [id number] 00:00:00* Test Item Value Reference Range Interpretation Comme nts DIANNA SPECIES (test code = ) NEGATIVE G. VAGINALIS (test code = ) POSITIVE T. VAGINALIS (test code = ) NEGATIVE Delfino OrtaCOMPREHENSIVE METABOLIC [id number] 00:00:00* Test Item Value Reference Range Interpretation Comme nts GLUCOSE (test code = 2217) 92 MG/DL BUN (test code = 2208) 20 MG/DL CREATININE (test code = 2214) 1.31 MG/DL eGFR AMER. (test cod e = 65192) 53 ML/MIN/1.73 eGFR NON- AMER. (test code = 21510) 45 ML/MIN/1.73 CALC BUN/CREAT (test code = [...] = 2219) 16 U/L Delfino OrtaCBC W/AUTO [id number] 00:00:00* Test Item Value Reference Range Interpretation [...] 1016) (NOTE) Delfino Schumacher AustinVAGINAL PATHOGENS DNA [id number] 00:00:00* Test Item Value Reference Range Interpretation Comme nts DIANNA SPECIES (test code = 42131) NEGATIVE G. VAGINALIS (test code = 98050) POSITIVE T. VAGINALIS (test code = 09437) NEGATIVE Delfino Schumacher AustinVAGINAL PATHOGENS DNA [id number] 00:00:00* Test Item Value Reference Range Interpretation Comme nts DIANNA SPECIES (test code = 96086) NEGATIVE G. VAGINALIS (test code = 88665) POSITIVE T. VAGINALIS (test code = 34890) NEGATIVE Delfino OrtaCOMPREHENSIVE METABOLIC [id number] 00:00:00* Test Item Value Reference Range Interpretation Comme nts GLUCOSE (test code = 2217) 92 MG/DL BUN (test code = 2208) 20 MG/DL CREATININE (test code = 2214) 1.31 MG/DL eGFR AMER. (test cod e = 18834) 53 ML/MIN/1.73 eGFR NON- AMER. (test code = 54747) 45 ML/MIN/1.73 CALC BUN/CREAT (test code = [...] = 2219) 16 U/L Delfino OrtaCBC W/AUTO [id number] 00:00:00* Test Item Value Reference Range Interpretation [...] 1016) (NOTE) Delfino Schumacher YouVAGINAL PATHOGENS DNA [id number] 00:00:00* Test Item Value Reference Range Interpretation Comme nts DIANNA SPECIES (test code = ) NEGATIVE G. VAGINALIS (test code = ) POSITIVE T. VAGINALIS (test code = ) NEGATIVE Delfino OrtaCOMPREHENSIVE METABOLIC [id number] 00:00:00* Test Item Value Reference Range Interpretation Comme nts GLUCOSE (test code = 2217) 92 MG/DL BUN (test code = 2208) 20 MG/DL CREATININE (test code = 2214) 1.31 MG/DL eGFR AMER. (test cod e = 93907) 53 ML/MIN/1.73 eGFR NON- AMER. (test code = 45827) 45 ML/MIN/1.73 CALC BUN/CREAT (test code = [...] = 2219) 16 U/L Delfino OrtaCBC W/AUTO [id number] 00:00:00* Test Item Value Reference Range Interpretation [...] = 1016) (NOTE) Delfino OrtaVAGINAL PATHOGENS DNA [id number] 00:00:00* Test Item Value Reference Range Interpretation Comme nts DIANNA SPECIES (test code = ) NEGATIVE G. VAGINALIS (test code = ) POSITIVE T. VAGINALIS (test code = ) NEGATIVE Delfino Schumacher AustinCOMPREHENSIVE METABOLIC [id number] 00:00:00* Test Item Value Reference Range Interpretation Comme nts GLUCOSE (test code = 2217) 92 MG/DL BUN (test code = 2208) 20 MG/DL CREATININE (test code = 2214) 1.31 MG/DL eGFR AMER. (test cod e = 00635) 53 ML/MIN/1.73 eGFR NON- AMER. (test code = 01572) 45 ML/MIN/1.73 CALC BUN/CREAT (test code = [...] = 2219) 16 U/L Delfino OrtaCOMPREHENSIVE METABOLIC [id number] 00:00:00* Test Item Value Reference Range Interpretation Comme nts GLUCOSE (test code = 2217) 92 MG/DL BUN (test code = 2208) 20 MG/DL CREATININE (test code = 2214) 1.31 MG/DL eGFR AMER. (test cod e = 44210) 53 ML/MIN/1.73 eGFR NON- AMER. (test code = 12432) 45 ML/MIN/1.73 CALC BUN/CREAT (test code = [...] = 2219) 16 U/L Delfino OrtaCBC W/AUTO [id number] 00:00:00* Test Item Value Reference Range Interpretation [...] = 1016) (NOTE) Delfino OrtaVAGINAL PATHOGENS DNA [id number] 00:00:00* Test Item Value Reference Range Interpretation Comme nts DIANNA SPECIES (test code = ) NEGATIVE G. VAGINALIS (test code = 23829) POSITIVE T. VAGINALIS (test code = 32413) NEGATIVE Delfino OrtaLIPID [id number] 00:00:00* Test Item Value Reference Range Interpretation Comme nts CHOLESTEROL (test code = 2210) 141 MG/DL TRIGLYCERIDES (test code = 2232) 71 MG/DL HDL CHOLESTEROL (test code = 2220) 69 MG/DL CALC LDL CHOL (test code = 2237) 58 MG/DL RISK RATIO LDL/HDL (test cod e = 2238) 0.84 RATIO Delfino OrtaCOMPREHENSIVE METABOLIC [id number] 00:00:00* Test Item Value Reference Range Interpretation Comme nts GLUCOSE (test code = 2217) 95 MG/DL BUN (test code = 2208) 21 MG/DL CREATININE (test code = 2214) 0.87 MG/DL eGFR AMER. (test cod e = 82743) 87 ML/MIN/1.73 eGFR NON- AMER. (test code = 22598) 75 ML/MIN/1.73 CALC BUN/CREAT (test code = [...] code = 2219) 8 U/L Delfino OrtaURIC [id number] 00:00:00* Test Item Value Reference Range Interpretation Comme carlito URIC ACID (test code = 2233) 8.5 MG/DL Delfino OrtaVITAMIN [id number] 00:00:00* Test Item Value Reference Range Interpretation Comme carlito VITAMIN B-12 (test code = 2840) 335 PG/ML Delfino OrtaCBC W/AUTO [id number] 00:00:00* Test Item Value Reference Range Interpretation [...] code = 1015) 212 K/UL Delfino OrtaLIPID [id number] 00:00:00* Test Item Value Reference Range Interpretation Comme nts CHOLESTEROL (test code = 2210) 141 MG/DL TRIGLYCERIDES (test code = 2232) 71 MG/DL HDL CHOLESTEROL (test code = 2220) 69 MG/DL CALC LDL CHOL (test code = 2237) 58 MG/DL RISK RATIO LDL/HDL (test cod e = 2238) 0.84 RATIO Delfino OrtaURIC [id number] 00:00:00* Test Item Value Reference Range Interpretation Comme nts URIC ACID (test code = 2233) 8.5 MG/DL Delfino OrtaCOMPREHENSIVE METABOLIC [id number] 00:00:00* Test Item Value Reference Range Interpretation Comme nts GLUCOSE (test code = 2217) 95 MG/DL BUN (test code = 2208) 21 MG/DL CREATININE (test code = 2214) 0.87 MG/DL eGFR AMER. (test cod e = 85791) 87 ML/MIN/1.73 eGFR NON- AMER. (test code = 43255) 75 ML/MIN/1.73 CALC BUN/CREAT (test code = [...] code = 2219) 8 U/L Delfino OrtaURIC [id number] 00:00:00* Test Item Value Reference Range Interpretation Comme nts URIC ACID (test code = 2233) 8.5 MG/DL Delfino Schumacher AustinVITAMIN [id number] 00:00:00* Test Item Value Reference Range Interpretation Comme nts VITAMIN B-12 (test code = 2840) 335 PG/ML Delfino OrtaCBC W/AUTO [id number] 00:00:00* Test Item Value Reference Range Interpretation [...] code = 1015) 212 K/UL Delfino OrtaVITAMIN [id number] 00:00:00* Test Item Value Reference Range Interpretation Comme carlito VITAMIN B-12 (test code = 2840) 335 PG/ML Delfino OrtaLIPID [id number] 00:00:00* Test Item Value Reference Range Interpretation Comme nts CHOLESTEROL (test code = 2210) 141 MG/DL TRIGLYCERIDES (test code = 2232) 71 MG/DL HDL CHOLESTEROL (test code = 2220) 69 MG/DL CALC LDL CHOL (test code = 2237) 58 MG/DL RISK RATIO LDL/HDL (test cod e = 2238) 0.84 RATIO Delfino OrtaCOMPREHENSIVE METABOLIC [id number] 00:00:00* Test Item Value Reference Range Interpretation Comme nts GLUCOSE (test code = 2217) 95 MG/DL BUN (test code = 2208) 21 MG/DL CREATININE (test code = 2214) 0.87 MG/DL eGFR AMER. (test cod e = 11993) 87 ML/MIN/1.73 eGFR NON- AMER. (test code = 34171) 75 ML/MIN/1.73 CALC BUN/CREAT (test code = [...] code = 2219) 8 U/L Delfino OrtaURIC [id number] 00:00:00* Test Item Value Reference Range Interpretation Comme [facility] URIC ACID (test code = 2233) 8.5 MG/DL Delfino OrtaVITAMIN [id number] 00:00:00* Test Item Value Reference Range Interpretation Comme [facility] VITAMIN B-12 (test code = 2840) 335 PG/ML Delfino OrtaCBC W/AUTO [id number] 00:00:00* Test Item Value Reference Range Interpretation [...] code = 1015) 212 K/UL Delfino OrtaLIPID [id number] 00:00:00* Test Item Value Reference Range Interpretation Comme nts CHOLESTEROL (test code = 2210) 141 MG/DL TRIGLYCERIDES (test code = 2232) 71 MG/DL HDL CHOLESTEROL (test code = 2220) 69 MG/DL CALC LDL CHOL (test code = 2237) 58 MG/DL RISK RATIO LDL/HDL (test cod e = 2238) 0.84 RATIO Delfino OrtaCOMPREHENSIVE METABOLIC [id number] 00:00:00* Test Item Value Reference Range Interpretation Comme nts GLUCOSE (test code = 2217) 95 MG/DL BUN (test code = 2208) 21 MG/DL CREATININE (test code = 2214) 0.87 MG/DL eGFR AMER. (test cod e = 79198) 87 ML/MIN/1.73 eGFR NON- AMER. (test code = 01109) 75 ML/MIN/1.73 CALC BUN/CREAT (test code = [...] code = 2219) 8 U/L Delfino OrtaURIC [id number] 00:00:00* Test Item Value Reference Range Interpretation Comme nts URIC ACID (test code = 2233) 8.5 MG/DL Delfino OrtaVITAMIN [id number] 00:00:00* Test Item Value Reference Range Interpretation Comme carlito VITAMIN B-12 (test code = 2840) 335 PG/ML Delfino OrtaCBC W/AUTO [id number] 00:00:00* Test Item Value Reference Range Interpretation [...] code = 1015) 212 K/UL Delfino OrtaLIPID [id number] 00:00:00* Test Item Value Reference Range Interpretation Comme nts CHOLESTEROL (test code = 2210) 141 MG/DL TRIGLYCERIDES (test code = 2232) 71 MG/DL HDL CHOLESTEROL (test code = 2220) 69 MG/DL CALC LDL CHOL (test code = 2237) 58 MG/DL RISK RATIO LDL/HDL (test cod e = 2238) 0.84 RATIO Delfino OrtaCOMPREHENSIVE METABOLIC [id number] 00:00:00* Test Item Value Reference Range Interpretation Comme nts GLUCOSE (test code = 2217) 95 MG/DL BUN (test code = 2208) 21 MG/DL CREATININE (test code = 2214) 0.87 MG/DL eGFR AMER. (test cod e = 47458) 87 ML/MIN/1.73 eGFR NON- AMER. (test code = 17428) 75 ML/MIN/1.73 CALC BUN/CREAT (test code = [...] code = 2219) 8 U/L Delfino OrtaURIC [id number] 00:00:00* Test Item Value Reference Range Interpretation Comme [facility] URIC ACID (test code = 2233) 8.5 MG/DL Delfino OrtaVITAMIN [id number] 00:00:00* Test Item Value Reference Range Interpretation Comme [facility] VITAMIN B-12 (test code = 2840) 335 PG/ML Delfino OrtaCBC W/AUTO [id number] 00:00:00* Test Item Value Reference Range Interpretation [...] code = 1015) 212 K/UL Delfino OrtaLIPID [id number] 00:00:00* Test Item Value Reference Range Interpretation Comme nts CHOLESTEROL (test code = 2210) 141 MG/DL TRIGLYCERIDES (test code = 2232) 71 MG/DL HDL CHOLESTEROL (test code = 2220) 69 MG/DL CALC LDL CHOL (test code = 2237) 58 MG/DL RISK RATIO LDL/HDL (test cod e = 2238) 0.84 RATIO Delfino OrtaCOMPREHENSIVE METABOLIC [id number] 00:00:00* Test Item Value Reference Range Interpretation Comme nts GLUCOSE (test code = 2217) 95 MG/DL BUN (test code = 2208) 21 MG/DL CREATININE (test code = 2214) 0.87 MG/DL eGFR AMER. (test cod e = 96417) 87 ML/MIN/1.73 eGFR NON- AMER. (test code = 60184) 75 ML/MIN/1.73 CALC BUN/CREAT (test code = [...] code = 2219) 8 U/L Delfino OrtaURIC [id number] 00:00:00* Test Item Value Reference Range Interpretation Comme nts URIC ACID (test code = 2233) 8.5 MG/DL Delfino OrtaVITAMIN [id number] 00:00:00* Test Item Value Reference Range Interpretation Comme nts VITAMIN B-12 (test code = 2840) 335 PG/ML Delfino OrtaCBC W/AUTO [id number] 00:00:00* Test Item Value Reference Range Interpretation [...] code = 1015) 212 K/UL Delfino OrtaLIPID [id number] 00:00:00* Test Item Value Reference Range Interpretation Comme nts CHOLESTEROL (test code = 2210) 141 MG/DL TRIGLYCERIDES (test code = 2232) 71 MG/DL HDL CHOLESTEROL (test code = 2220) 69 MG/DL CALC LDL CHOL (test code = 2237) 58 MG/DL RISK RATIO LDL/HDL (test cod e = 2238) 0.84 RATIO Delfino OrtaCOMPREHENSIVE METABOLIC [id number] 00:00:00* Test Item Value Reference Range Interpretation Comme nts GLUCOSE (test code = 2217) 95 MG/DL BUN (test code = 2208) 21 MG/DL CREATININE (test code = 2214) 0.87 MG/DL eGFR AMER. (test cod e = 85567) 87 ML/MIN/1.73 eGFR NON- AMER. (test code = 48998) 75 ML/MIN/1.73 CALC BUN/CREAT (test code = [...] = 2219) 8 U/L Delfino OrtaCBC W/AUTO [id number] 00:00:00* Test Item Value Reference Range Interpretation [...] COUNT (test code = 1015) 212 K/UL URIC [id number] 00:00:00* Test Item Value Reference Range Interpretation Comme [facility] URIC ACID (test code = 2233) 8.5 MG/DL Delfino OrtaVITAMIN [id number] 00:00:00* Test Item Value Reference Range Interpretation Comme [facility] VITAMIN B-12 (test code = 2840) 335 PG/ML Delfino OrtaLIPID [id number] 00:00:00* Test Item Value Reference Range Interpretation Comme nts CHOLESTEROL (test code = 2210) 141 MG/DL TRIGLYCERIDES (test code = 2232) 71 MG/DL HDL CHOLESTEROL (test code = 2220) 69 MG/DL CALC LDL CHOL (test code = 2237) 58 MG/DL RISK RATIO LDL/HDL (test cod e = 2238) 0.84 RATIO CBC W/AUTO [id number] 00:00:00* Test Item Value Reference Range Interpretation [...] code = 1015) 212 K/UL Delfino Schumacher AustinCOMPREHENSIVE METABOLIC [id number] 00:00:00* Test Item Value Reference Range Interpretation Comme nts GLUCOSE (test code = 2217) 95 MG/DL BUN (test code = 2208) 21 MG/DL CREATININE (test code = 2214) 0.87 MG/DL eGFR AMER. (test cod e = 54328) 87 ML/MIN/1.73 eGFR NON- AMER. (test code = 85346) 75 ML/MIN/1.73 CALC BUN/CREAT (test code = [...] ALT (test code = 2219) 8 U/L LIPID [id number] 00:00:00* Test Item Value Reference Range Interpretation Comme nts CHOLESTEROL (test code = 2210) 141 MG/DL TRIGLYCERIDES (test code = 2232) 71 MG/DL HDL CHOLESTEROL (test code = 2220) 69 MG/DL CALC LDL CHOL (test code = 2237) 58 MG/DL RISK RATIO LDL/HDL (test cod e = 2238) 0.84 RATIO Delfino OrtaURIC [id number] 00:00:00* Test Item Value Reference Range Interpretation Comme nts URIC ACID (test code = 2233) 8.5 MG/DL VITAMIN [id number] 00:00:00* Test Item Value Reference Range Interpretation Comme nts VITAMIN B-12 (test code = 2840) 335 PG/ML COMPREHENSIVE METABOLIC [id number] 00:00:00* Test Item Value Reference Range Interpretation Comme nts GLUCOSE (test code = 2217) 95 MG/DL BUN (test code = 2208) 21 MG/DL CREATININE (test code = 2214) 0.87 MG/DL eGFR AMER. (test cod e = 12195) 87 ML/MIN/1.73 eGFR NON- AMER. (test code = 31425) 75 ML/MIN/1.73 CALC BUN/CREAT (test code = [...] code = 2219) 8 U/L Delfino OrtaURIC [id number] 00:00:00* Test Item Value Reference Range Interpretation Comme nts URIC ACID (test code = 2233) 8.5 MG/DL Delfino OrtaVITAMIN [id number] 00:00:00* Test Item Value Reference Range Interpretation Comme nts VITAMIN B-12 (test code = 2840) 335 PG/ML Delfino OrtaCBC W/AUTO [id number] 00:00:00* Test Item Value Reference Range Interpretation [...] code = 1015) 212 K/UL CBC W/AUTO [id number] 00:00:00* Test Item Value Reference Range Interpretation [...] code = 1015) 212 K/UL Delfino OrtaLIPID [id number] 00:00:00* Test Item Value Reference Range Interpretation Comme nts CHOLESTEROL (test code = 2210) 141 MG/DL TRIGLYCERIDES (test code = 2232) 71 MG/DL HDL CHOLESTEROL (test code = 2220) 69 MG/DL CALC LDL CHOL (test code = 2237) 58 MG/DL RISK RATIO LDL/HDL (test cod e = 2238) 0.84 RATIO LIPID [id number] 00:00:00* Test Item Value Reference Range Interpretation Comme nts CHOLESTEROL (test code = 2210) 141 MG/DL TRIGLYCERIDES (test code = 2232) 71 MG/DL HDL CHOLESTEROL (test code = 2220) 69 MG/DL CALC LDL CHOL (test code = 2237) 58 MG/DL RISK RATIO LDL/HDL (test cod e = 2238) 0.84 RATIO Delfino OrtaCOMPREHENSIVE METABOLIC [id number] 00:00:00* Test Item Value Reference Range Interpretation Comme nts GLUCOSE (test code = 2217) 95 MG/DL BUN (test code = 2208) 21 MG/DL CREATININE (test code = 2214) 0.87 MG/DL eGFR AMER. (test cod e = 91950) 87 ML/MIN/1.73 eGFR NON- AMER. (test code = 34112) 75 ML/MIN/1.73 CALC BUN/CREAT (test code = [...] (test code = 2219) 8 U/L URIC [id number] 00:00:00* Test Item Value Reference Range Interpretation Comme nts URIC ACID (test code = 2233) 8.5 MG/DL VITAMIN [id number] 00:00:00* Test Item Value Reference Range Interpretation Comme nts VITAMIN B-12 (test code = 2840) 335 PG/ML COMPREHENSIVE METABOLIC [id number] 00:00:00* Test Item Value Reference Range Interpretation Comme nts GLUCOSE (test code = 2217) 95 MG/DL BUN (test code = 2208) 21 MG/DL CREATININE (test code = 2214) 0.87 MG/DL eGFR AMER. (test cod e = 32669) 87 ML/MIN/1.73 eGFR NON- AMER. (test code = 18881) 75 ML/MIN/1.73 CALC BUN/CREAT (test code = [...] code = 2219) 8 U/L [facility] [id number] 00:00:00* Test Item Value Reference Range Interpretation [...] COUNT (test code = 1015) 212 K/UL URIC [id number] 00:00:00* Test Item Value Reference Range Interpretation Comme nts URIC ACID (test code = 2233) 8.5 MG/DL Delfino OtraVITAMIN [id number] 00:00:00* Test Item Value Reference Range Interpretation Comme nts VITAMIN B-12 (test code = 2840) 335 PG/ML Delfino OrtaLIPID [id number] 00:00:00* Test Item Value Reference Range Interpretation Comme nts CHOLESTEROL (test code = 2210) 141 MG/DL TRIGLYCERIDES (test code = 2232) 71 MG/DL HDL CHOLESTEROL (test code = 2220) 69 MG/DL CALC LDL CHOL (test code = 2237) 58 MG/DL RISK RATIO LDL/HDL (test cod e = 2238) 0.84 RATIO CBC W/AUTO [id number] 00:00:00* Test Item Value Reference Range Interpretation [...] = 1015) 212 K/UL Delfino OrtaCOMPREHENSIVE METABOLIC [id number] 00:00:00* Test Item Value Reference Range Interpretation Comme nts GLUCOSE (test code = 2217) 95 MG/DL BUN (test code = 2208) 21 MG/DL CREATININE (test code = 2214) 0.87 MG/DL eGFR AMER. (test cod e = 15104) 87 ML/MIN/1.73 eGFR NON- AMER. (test code = 64927) 75 ML/MIN/1.73 CALC BUN/CREAT (test code = [...] (test code = 2219) 8 U/L URIC [id number] 00:00:00* Test Item Value Reference Range Interpretation Comme nts URIC ACID (test code = 2233) 8.5 MG/DL VITAMIN [id number] 00:00:00* Test Item Value Reference Range Interpretation Comme nts VITAMIN B-12 (test code = 2840) 335 PG/ML LIPID [id number] 00:00:00* Test Item Value Reference Range Interpretation Comme nts CHOLESTEROL (test code = 2210) 141 MG/DL TRIGLYCERIDES (test code = 2232) 71 MG/DL HDL CHOLESTEROL (test code = 2220) 69 MG/DL CALC LDL CHOL (test code = 2237) 58 MG/DL RISK RATIO LDL/HDL (test cod e = 2238) 0.84 RATIO Delfino F AustinCOMPREHENSIVE METABOLIC [id number] 00:00:00* Test Item Value Reference Range Interpretation Comme nts GLUCOSE (test code = 2217) 95 MG/DL BUN (test code = 2208) 21 MG/DL CREATININE (test code = 2214) 0.87 MG/DL eGFR AMER. (test cod e = 02957) 87 ML/MIN/1.73 eGFR NON- AMER. (test code = 23713) 75 ML/MIN/1.73 CALC BUN/CREAT (test code = [...] = 2219) 8 U/L Delfino OrtaCBC W/AUTO [id number] 00:00:00* Test Item Value Reference Range Interpretation [...] COUNT (test code = 1015) 212 K/UL URIC [id number] 00:00:00* Test Item Value Reference Range Interpretation Comme nts URIC ACID (test code = 2233) 8.5 MG/DL Delfino Schumacher YouVITAMIN [id number] 00:00:00* Test Item Value Reference Range Interpretation Comme nts VITAMIN B-12 (test code = 2840) 335 PG/ML Delfino OrtaLIPID [id number] 00:00:00* Test Item Value Reference Range Interpretation Comme nts CHOLESTEROL (test code = 2210) 141 MG/DL TRIGLYCERIDES (test code = 2232) 71 MG/DL HDL CHOLESTEROL (test code = 2220) 69 MG/DL CALC LDL CHOL (test code = 2237) 58 MG/DL RISK RATIO LDL/HDL (test cod e = 2238) 0.84 RATIO CBC W/AUTO [id number] 00:00:00* Test Item Value Reference Range Interpretation [...] code = 1015) 212 K/UL Delfino Schumacher AustinCOMPREHENSIVE METABOLIC [id number] 00:00:00* Test Item Value Reference Range Interpretation Comme nts GLUCOSE (test code = 2217) 95 MG/DL BUN (test code = 2208) 21 MG/DL CREATININE (test code = 2214) 0.87 MG/DL eGFR AMER. (test cod e = 59416) 87 ML/MIN/1.73 eGFR NON- AMER. (test code = 15045) 75 ML/MIN/1.73 CALC BUN/CREAT (test code = [...] (test code = 2219) 8 U/L URIC [id number] 00:00:00* Test Item Value Reference Range Interpretation Comme nts URIC ACID (test code = 2233) 8.5 MG/DL VITAMIN [id number] 00:00:00* Test Item Value Reference Range Interpretation Comme nts VITAMIN B-12 (test code = 2840) 335 PG/ML LIPID [id number] 00:00:00* Test Item Value Reference Range Interpretation Comme nts CHOLESTEROL (test code = 2210) 141 MG/DL TRIGLYCERIDES (test code = 2232) 71 MG/DL HDL CHOLESTEROL (test code = 2220) 69 MG/DL CALC LDL CHOL (test code = 2237) 58 MG/DL RISK RATIO LDL/HDL (test cod e = 2238) 0.84 RATIO Delfino OrtaCOMPREHENSIVE METABOLIC [id number] 00:00:00* Test Item Value Reference Range Interpretation Comme nts GLUCOSE (test code = 2217) 95 MG/DL BUN (test code = 2208) 21 MG/DL CREATININE (test code = 2214) 0.87 MG/DL eGFR AMER. (test cod e = 53959) 87 ML/MIN/1.73 eGFR NON- AMER. (test code = 07066) 75 ML/MIN/1.73 CALC BUN/CREAT (test code = [...] code = 2219) 8 U/L Delfino OrtaURIC [id number] 00:00:00* Test Item Value Reference Range Interpretation Comme [facility] URIC ACID (test code = 2233) 8.5 MG/DL Delfino OrtaVITAMIN [id number] 00:00:00* Test Item Value Reference Range Interpretation Comme car[facility] VITAMIN B-12 (test code = 2840) 335 PG/ML Delfino OrtaCBC W/AUTO [id number] 00:00:00* Test Item Value Reference Range Interpretation [...] code = 1015) 212 K/UL Delfino OrtaLIPID [id number] 00:00:00* Test Item Value Reference Range Interpretation Comme nts CHOLESTEROL (test code = 2210) 141 MG/DL TRIGLYCERIDES (test code = 2232) 71 MG/DL HDL CHOLESTEROL (test code = 2220) 69 MG/DL CALC LDL CHOL (test code = 2237) 58 MG/DL RISK RATIO LDL/HDL (test cod e = 2238) 0.84 RATIO Delfino OrtaCOMPREHENSIVE METABOLIC [id number] 00:00:00* Test Item Value Reference Range Interpretation Comme [facility] GLUCOSE (test code = 2217) 95 MG/DL BUN (test code = 2208) 21 MG/DL CREATININE (test code = 2214) 0.87 MG/DL eGFR AMER. (test cod e = 26156) 87 ML/MIN/1.73 eGFR NON- AMER. (test code = 55057) 75 ML/MIN/1.73 CALC BUN/CREAT (test code = [...] code = 2219) 8 U/L Delfino OrtaURIC [id number] 00:00:00* Test Item Value Reference Range Interpretation Comme [facility] URIC ACID (test code = 2233) 8.5 MG/DL Delfino OrtaVITAMIN [id number] 00:00:00* Test Item Value Reference Range Interpretation Comme [facility] VITAMIN B-12 (test code = 2840) 335 PG/ML Delfino OrtaCBC W/AUTO [id number] 00:00:00* Test Item Value Reference Range Interpretation Comme [facility] WBC (test code = 1001) 2.9 [...] code = 1015) 212 K/UL Delfino OrtaLIPID [id number] 00:00:00* Test Item Value Reference Range Interpretation Comme nts CHOLESTEROL (test code = 2210) 141 MG/DL TRIGLYCERIDES (test code = 2232) 71 MG/DL HDL CHOLESTEROL (test code = 2220) 69 MG/DL CALC LDL CHOL (test code = 2237) 58 MG/DL RISK RATIO LDL/HDL (test cod e = 2238) 0.84 RATIO Delfino OrtaCOMPREHENSIVE METABOLIC [id number] 00:00:00* Test Item Value Reference Range Interpretation Comme nts GLUCOSE (test code = 2217) 95 MG/DL BUN (test code = 2208) 21 MG/DL CREATININE (test code = 2214) 0.87 MG/DL eGFR AMER. (test cod e = 79106) 87 ML/MIN/1.73 eGFR NON- AMER. (test code = 33007) 75 ML/MIN/1.73 CALC BUN/CREAT (test code = [...] code = 2219) 8 U/L Delfino OrtaURIC [id number] 00:00:00* Test Item Value Reference Range Interpretation Comme nts URIC ACID (test code = 2233) 8.5 MG/DL Delfino OrtaVITAMIN [id number] 00:00:00* Test Item Value Reference Range Interpretation Comme [facility] VITAMIN B-12 (test code = 2840) 335 PG/ML Delfino OrtaCBC W/AUTO [id number] 00:00:00* Test Item Value Reference Range Interpretation [...] code = 1015) 212 K/UL Delfino OrtaLIPID [id number] 00:00:00* Test Item Value Reference Range Interpretation Comme nts CHOLESTEROL (test code = 2210) 141 MG/DL TRIGLYCERIDES (test code = 2232) 71 MG/DL HDL CHOLESTEROL (test code = 2220) 69 MG/DL CALC LDL CHOL (test code = 2237) 58 MG/DL RISK RATIO LDL/HDL (test cod e = 2238) 0.84 RATIO Delfino OrtaCOMPREHENSIVE METABOLIC [id number] 00:00:00* Test Item Value Reference Range Interpretation Comme nts GLUCOSE (test code = 2217) 95 MG/DL BUN (test code = 2208) 21 MG/DL CREATININE (test code = 2214) 0.87 MG/DL eGFR AMER. (test cod e = 06068) 87 ML/MIN/1.73 eGFR NON- AMER. (test code = 46490) 75 ML/MIN/1.73 CALC BUN/CREAT (test code = [...] = 2219) 8 U/L Delfino Schumacher AustinUR[place] [id number] 00:00:00* Test Item Value Reference Range Interpretation Comme [facility] URIC ACID (test code = 2233) 8.5 MG/DL Delfino [facility]ta[facility]IT[facility]IN [id number] 00:00:00* Test Item Value Reference Range Interpretation Comme carlito VITAMIN B-12 (test code = 2840) 335 PG/ML Delfino Schumacher AustinCBC W/AUTO [id number] 00:00:00* Test Item Value Reference Range Interpretation [...] code = 1015) 212 K/UL Delfino OrtaLIPID [id number] 00:00:00* Test Item Value Reference Range Interpretation Comme nts CHOLESTEROL (test code = 2210) 141 MG/DL TRIGLYCERIDES (test code = 2232) 71 MG/DL HDL CHOLESTEROL (test code = 2220) 69 MG/DL CALC LDL CHOL (test code = 2237) 58 MG/DL RISK RATIO LDL/HDL (test cod e = 2238) 0.84 RATIO Delfino F AustinCBC W/AUTO [id number] 00:00:00* Test Item Value Reference Range Interpretation [...] = 1015) 212 K/UL Delfino OrtaCOMPREHENSIVE METABOLIC [id number] 00:00:00* Test Item Value Reference Range Interpretation Comme nts GLUCOSE (test code = 2217) 95 MG/DL BUN (test code = 2208) 21 MG/DL CREATININE (test code = 2214) 0.87 MG/DL eGFR AMER. (test cod e = 81088) 87 ML/MIN/1.73 eGFR NON- AMER. (test code = 67812) 75 ML/MIN/1.73 CALC BUN/CREAT (test code = [...] code = 2219) 8 U/L Delfino OrtaURIC [id number] 00:00:00* Test Item Value Reference Range Interpretation Comme carlito URIC ACID (test code = 2233) 8.5 MG/DL Delfino OrtaVITAMIN [id number] 00:00:00* Test Item Value Reference Range Interpretation Comme carlito VITAMIN B-12 (test code = 2840) 335 PG/ML Delfino OrtaCBC W/AUTO [id number] 00:00:00* Test Item Value Reference Range Interpretation [...] code = 1015) 212 K/UL Delfino OrtaLIPID [id number] 00:00:00* Test Item Value Reference Range Interpretation Comme nts CHOLESTEROL (test code = 2210) 141 MG/DL TRIGLYCERIDES (test code = 2232) 71 MG/DL HDL CHOLESTEROL (test code = 2220) 69 MG/DL CALC LDL CHOL (test code = 2237) 58 MG/DL RISK RATIO LDL/HDL (test cod e = 2238) 0.84 RATIO Delfino OrtaCOMPREHENSIVE METABOLIC [id number] 00:00:00* Test Item Value Reference Range Interpretation Comme nts GLUCOSE (test code = 2217) 95 MG/DL BUN (test code = 2208) 21 MG/DL CREATININE (test code = 2214) 0.87 MG/DL eGFR AMER. (test cod e = 59498) 87 ML/MIN/1.73 eGFR NON- AMER. (test code = 24487) 75 ML/MIN/1.73 CALC BUN/CREAT (test code = [...] 0.5 MG/DL ALKALINE PHOSPHATASE (test code = 2203) 83 U/L AST (test code = 221) 27 U/L ALT (test code = 2219) 8 U/L Delfino OrtaURIC [id number] 00:00:00* Test Item Value Reference Range Interpretation Comme [facility] URIC ACID (test code = 2233) 8.5 MG/DL Delfino OrtaVITAMIN [id number] 00:00:00* Test Item Value Reference Range Interpretation Comme [facility] VITAMIN B-12 (test code = 2840) 335 PG/ML Delfino Schumacher YouCBC W/AUTO [id number] 00:00:00* Test Item Value Reference Range Interpretation [...] = 1015) 212 K/UL Delfino Schumacher AustinLIPID [id number] 00:00:00* Test Item Value Reference Range Interpretation Comme nts CHOLESTEROL (test code = 2210) 141 MG/DL TRIGLYCERIDES (test code = 2232) 71 MG/DL HDL CHOLESTEROL (test code = 2220) 69 MG/DL CALC LDL CHOL (test code = 2237) 58 MG/DL RISK RATIO LDL/HDL (test cod e = 2238) 0.84 RATIO Delfino OrtaLIPID [id number] 00:00:00* Test Item Value Reference Range Interpretation Comme nts CHOLESTEROL (test code = 2210) 141 MG/DL TRIGLYCERIDES (test code = 2232) 71 MG/DL HDL CHOLESTEROL (test code = 2220) 69 MG/DL CALC LDL CHOL (test code = 2237) 58 MG/DL RISK RATIO LDL/HDL (test cod e = 2238) 0.84 RATIO Delfino OrtaCOMPREHENSIVE METABOLIC [id number] 00:00:00* Test Item Value Reference Range Interpretation Comme nts GLUCOSE (test code = 2217) 95 MG/DL BUN (test code = 2208) 21 MG/DL CREATININE (test code = 2214) 0.87 MG/DL eGFR AMER. (test cod e = 91046) 87 ML/MIN/1.73 eGFR NON- AMER. (test code = 30114) 75 ML/MIN/1.73 CALC BUN/CREAT (test code = [...] ALT (test code = 2219) 8 U/L Delfion OrtaURIC [id number] 00:00:00* Test Item Value Reference Range Interpretation Comme nts URIC ACID (test code = 2233) 8.5 MG/DL Delfino OrtaVITAMIN [id number] 00:00:00* Test Item Value Reference Range Interpretation Comme nts VITAMIN B-12 (test code = 2840) 335 PG/ML Delfino OrtaCBC W/AUTO [id number] 00:00:00* Test Item Value Reference Range Interpretation [...] COUNT (test code = 1015) 212 K/UL Deflino OrtaLIPID [id number] 00:00:00* Test Item Value Reference Range Interpretation Comme nts CHOLESTEROL (test code = 2210) 141 MG/DL TRIGLYCERIDES (test code = 2232) 71 MG/DL HDL CHOLESTEROL (test code = 2220) 69 MG/DL CALC LDL CHOL (test code = 2237) 58 MG/DL RISK RATIO LDL/HDL (test cod e = 2238) 0.84 RATIO Delfino OrtaCOMPREHENSIVE METABOLIC [id number] 00:00:00* Test Item Value Reference Range Interpretation Comme nts GLUCOSE (test code = 2217) 95 MG/DL BUN (test code = 2208) 21 MG/DL CREATININE (test code = 2214) 0.87 MG/DL eGFR AMER. (test cod e = 92941) 87 ML/MIN/1.73 eGFR NON- AMER. (test code = 60702) 75 ML/MIN/1.73 CALC BUN/CREAT (test code = [...] code = 2219) 8 U/L Delfino OrtaURIC [id number] 00:00:00* Test Item Value Reference Range Interpretation Comme nts URIC ACID (test code = 2233) 8.5 MG/DL Delfino OrtaVITAMIN [id number] 00:00:00* Test Item Value Reference Range Interpretation Comme nts VITAMIN B-12 (test code = 2840) 335 PG/ML Delfino OrtaCOMPREHENSIVE METABOLIC [id number] 00:00:00* Test Item Value Reference Range Interpretation Comme nts GLUCOSE (test code = 2217) 95 MG/DL BUN (test code = 2208) 21 MG/DL CREATININE (test code = 2214) 0.87 MG/DL eGFR AMER. (test cod e = 62581) 87 ML/MIN/1.73 eGFR NON- AMER. (test code = 86737) 75 ML/MIN/1.73 CALC BUN/CREAT (test code = [...] code = 2219) 8 U/L Delfino Schumacher YouCBC W/AUTO [id number] 00:00:00* Test Item Value Reference Range Interpretation [...] code = 1015) 212 K/UL Delfino Schumacher YouCD4/CD8 LYMPHOCYTE [id number] 00:00:00* Test Item Value Reference Range Interpretation Comme nts ABSOLUTE LYMPHOCYTES (test c ode = 60288) 807 PERUL PERCENT CD4 (test code = 65058) 13.1 % ABSOLUTE CD4 (test code = 06331) 105 PERUL PERCENT CD8 (test code = 06048) 61.6 % ABSOLUTE CD8 (test code = 74546) 497 PERUL CD4/CD8 RATIO (test code = 88481) 0.21 Delfino Schumacher AustinCD4/CD8 LYMPHOCYTE [id number] 00:00:00* Test Item Value Reference Range Interpretation Comme nts ABSOLUTE LYMPHOCYTES (test c ode = 33334) 807 PERUL PERCENT CD4 (test code = 43392) 13.1 % ABSOLUTE CD4 (test code = 80991) 105 PERUL PERCENT CD8 (test code = 83321) 61.6 % ABSOLUTE CD8 (test code = 33171) 497 PERUL CD4/CD8 RATIO (test code = 73048) 0.21 Delfino Schumacher AustinCD4/CD8 LYMPHOCYTE [id number] 00:00:00* Test Item Value Reference Range Interpretation Comme nts ABSOLUTE LYMPHOCYTES (test c ode = 95701) 807 PERUL PERCENT CD4 (test code = 75936) 13.1 % ABSOLUTE CD4 (test code = 69334) 105 PERUL PERCENT CD8 (test code = 28888) 61.6 % ABSOLUTE CD8 (test code = 04209) 497 PERUL CD4/CD8 RATIO (test code = 57969) 0.21 Delfino Schumacher AustinCD4/CD8 LYMPHOCYTE [id number] 00:00:00* Test Item Value Reference Range Interpretation Comme nts ABSOLUTE LYMPHOCYTES (test c ode = 30000) 807 PERUL PERCENT CD4 (test code = 22837) 13.1 % ABSOLUTE CD4 (test code = 26660) 105 PERUL PERCENT CD8 (test code = 13579) 61.6 % ABSOLUTE CD8 (test code = 92209) 497 PERUL CD4/CD8 RATIO (test code = 16746) 0.21 Delfino Schumacher AustinCD4/CD8 LYMPHOCYTE [id number] 00:00:00* Test Item Value Reference Range Interpretation Comme nts ABSOLUTE LYMPHOCYTES (test c ode = 28571) 807 PERUL PERCENT CD4 (test code = 51948) 13.1 % ABSOLUTE CD4 (test code = 59514) 105 PERUL PERCENT CD8 (test code = 89139) 61.6 % ABSOLUTE CD8 (test code = 37762) 497 PERUL CD4/CD8 RATIO (test code = 27572) 0.21 Delfino Schumacher AustinCD4/CD8 LYMPHOCYTE [id number] 00:00:00* Test Item Value Reference Range Interpretation Comme nts ABSOLUTE LYMPHOCYTES (test c ode = 66489) 807 PERUL PERCENT CD4 (test code = 67936) 13.1 % ABSOLUTE CD4 (test code = 59413) 105 PERUL PERCENT CD8 (test code = 83126) 61.6 % ABSOLUTE CD8 (test code = 32622) 497 PERUL CD4/CD8 RATIO (test code = 88510) 0.21 Delfino Schumacher AustinCD4/CD8 LYMPHOCYTE [id number] 00:00:00* Test Item Value Reference Range Interpretation Comme nts ABSOLUTE LYMPHOCYTES (test c ode = 05804) 807 PERUL PERCENT CD4 (test code = 95068) 13.1 % ABSOLUTE CD4 (test code = 44196) 105 PERUL PERCENT CD8 (test code = 02909) 61.6 % ABSOLUTE CD8 (test code = 00326) 497 PERUL CD4/CD8 RATIO (test code = 65681) 0.21 CD4/CD8 LYMPHOCYTE [id number] 00:00:00* Test Item Value Reference Range Interpretation Comme nts ABSOLUTE LYMPHOCYTES (test c ode = 85784) 807 PERUL PERCENT CD4 (test code = 08487) 13.1 % ABSOLUTE CD4 (test code = 54146) 105 PERUL PERCENT CD8 (test code = 91678) 61.6 % ABSOLUTE CD8 (test code = 58668) 497 PERUL CD4/CD8 RATIO (test code = 24755) 0.21 Delfino Schumacher AustinCD4/CD8 LYMPHOCYTE [id number] 00:00:00* Test Item Value Reference Range Interpretation Comme nts ABSOLUTE LYMPHOCYTES (test c ode = 25971) 807 PERUL PERCENT CD4 (test code = 61201) 13.1 % ABSOLUTE CD4 (test code = 34268) 105 PERUL PERCENT CD8 (test code = 73988) 61.6 % ABSOLUTE CD8 (test code = 72817) 497 PERUL CD4/CD8 RATIO (test code = 75818) 0.21 CD4/CD8 LYMPHOCYTE [id number] 00:00:00* Test Item Value Reference Range Interpretation Comme nts ABSOLUTE LYMPHOCYTES (test c ode = 18432) 807 PERUL PERCENT CD4 (test code = 58403) 13.1 % ABSOLUTE CD4 (test code = 62010) 105 PERUL PERCENT CD8 (test code = 41604) 61.6 % ABSOLUTE CD8 (test code = 02874) 497 PERUL CD4/CD8 RATIO (test code = 16609) 0.21 Delfino Schumacher AustinCD4/CD8 LYMPHOCYTE [id number] 00:00:00* Test Item Value Reference Range Interpretation Comme nts ABSOLUTE LYMPHOCYTES (test c ode = 19269) 807 PERUL PERCENT CD4 (test code = 10248) 13.1 % ABSOLUTE CD4 (test code = 63816) 105 PERUL PERCENT CD8 (test code = 38329) 61.6 % ABSOLUTE CD8 (test code = 12055) 497 PERUL CD4/CD8 RATIO (test code = 89049) 0.21 CD4/CD8 LYMPHOCYTE [id number] 00:00:00* Test Item Value Reference Range Interpretation Comme nts ABSOLUTE LYMPHOCYTES (test c ode = 26600) 807 PERUL PERCENT CD4 (test code = 30526) 13.1 % ABSOLUTE CD4 (test code = 57213) 105 PERUL PERCENT CD8 (test code = 79311) 61.6 % ABSOLUTE CD8 (test code = 14576) 497 PERUL CD4/CD8 RATIO (test code = 32983) 0.21 Delfino F AustinCD4/CD8 LYMPHOCYTE [id number] 00:00:00* Test Item Value Reference Range Interpretation Comme nts ABSOLUTE LYMPHOCYTES (test c ode = 32020) 807 PERUL PERCENT CD4 (test code = 70680) 13.1 % ABSOLUTE CD4 (test code = 72508) 105 PERUL PERCENT CD8 (test code = 03564) 61.6 % ABSOLUTE CD8 (test code = 13545) 497 PERUL CD4/CD8 RATIO (test code = 50766) 0.21 CD4/CD8 LYMPHOCYTE [id number] 00:00:00* Test Item Value Reference Range Interpretation Comme nts ABSOLUTE LYMPHOCYTES (test c ode = 01202) 807 PERUL PERCENT CD4 (test code = 62492) 13.1 % ABSOLUTE CD4 (test code = 16096) 105 PERUL PERCENT CD8 (test code = 62809) 61.6 % ABSOLUTE CD8 (test code = 86881) 497 PERUL CD4/CD8 RATIO (test code = 37442) 0.21 Delfino F AustinCD4/CD8 LYMPHOCYTE [id number] 00:00:00* Test Item Value Reference Range Interpretation Comme nts ABSOLUTE LYMPHOCYTES (test c ode = 79665) 807 PERUL PERCENT CD4 (test code = 02786) 13.1 % ABSOLUTE CD4 (test code = 31354) 105 PERUL PERCENT CD8 (test code = 89746) 61.6 % ABSOLUTE CD8 (test code = 78994) 497 PERUL CD4/CD8 RATIO (test code = 76905) 0.21 Delfino Schumacher AustinCD4/CD8 LYMPHOCYTE [id number] 00:00:00* Test Item Value Reference Range Interpretation Comme nts ABSOLUTE LYMPHOCYTES (test c ode = 24261) 807 PERUL PERCENT CD4 (test code = 66576) 13.1 % ABSOLUTE CD4 (test code = 44881) 105 PERUL PERCENT CD8 (test code = 41598) 61.6 % ABSOLUTE CD8 (test code = 74713) 497 PERUL CD4/CD8 RATIO (test code = 49263) 0.21 Delfino Schumacher AustinCD4/CD8 LYMPHOCYTE [id number] 00:00:00* Test Item Value Reference Range Interpretation Comme nts ABSOLUTE LYMPHOCYTES (test c ode = 19502) 807 PERUL PERCENT CD4 (test code = 67037) 13.1 % ABSOLUTE CD4 (test code = 50821) 105 PERUL PERCENT CD8 (test code = 70566) 61.6 % ABSOLUTE CD8 (test code = 62061) 497 PERUL CD4/CD8 RATIO (test code = 27221) 0.21 Delfino Schumacher AustinCD4/CD8 LYMPHOCYTE [id number] 00:00:00* Test Item Value Reference Range Interpretation Comme nts ABSOLUTE LYMPHOCYTES (test c ode = 81876) 807 PERUL PERCENT CD4 (test code = 04865) 13.1 % ABSOLUTE CD4 (test code = 07375) 105 PERUL PERCENT CD8 (test code = 62158) 61.6 % ABSOLUTE CD8 (test code = 22604) 497 PERUL CD4/CD8 RATIO (test code = 26632) 0.21 Delfino Schumacher AustinCD4/CD8 LYMPHOCYTE [id number] 00:00:00* Test Item Value Reference Range Interpretation Comme nts ABSOLUTE LYMPHOCYTES (test c ode = 91934) 807 PERUL PERCENT CD4 (test code = 20775) 13.1 % ABSOLUTE CD4 (test code = 71038) 105 PERUL PERCENT CD8 (test code = 60375) 61.6 % ABSOLUTE CD8 (test code = 59277) 497 PERUL CD4/CD8 RATIO (test code = 49873) 0.21 Delfino Schumacher AustinCD4/CD8 LYMPHOCYTE [id number] 00:00:00* Test Item Value Reference Range Interpretation Comme nts ABSOLUTE LYMPHOCYTES (test c ode = 31534) 807 PERUL PERCENT CD4 (test code = 45995) 13.1 % ABSOLUTE CD4 (test code = 89254) 105 PERUL PERCENT CD8 (test code = 66938) 61.6 % ABSOLUTE CD8 (test code = 90018) 497 PERUL CD4/CD8 RATIO (test code = 49703) 0.21 Delfino Schumacher AustinCD4/CD8 LYMPHOCYTE [id number] 00:00:00* Test Item Value Reference Range Interpretation Comme nts ABSOLUTE LYMPHOCYTES (test c ode = 66162) 807 PERUL PERCENT CD4 (test code = 64940) 13.1 % ABSOLUTE CD4 (test code = 71422) 105 PERUL PERCENT CD8 (test code = 29019) 61.6 % ABSOLUTE CD8 (test code = 04818) 497 PERUL CD4/CD8 RATIO (test code = 25972) 0.21 Delfino Schumacher AustinCD4/CD8 LYMPHOCYTE [id number] 00:00:00* Test Item Value Reference Range Interpretation Comme nts ABSOLUTE LYMPHOCYTES (test c ode = 29315) 807 PERUL PERCENT CD4 (test code = 44101) 13.1 % ABSOLUTE CD4 (test code = 38987) 105 PERUL PERCENT CD8 (test code = 65684) 61.6 % ABSOLUTE CD8 (test code = 20065) 497 PERUL CD4/CD8 RATIO (test code = 08884) 0.21 Delfino Schumacher AustinCD4/CD8 LYMPHOCYTE [id number] 00:00:00* Test Item Value Reference Range Interpretation Comme nts ABSOLUTE LYMPHOCYTES (test c ode = 11905) 807 PERUL PERCENT CD4 (test code = 95194) 13.1 % ABSOLUTE CD4 (test code = 62553) 105 PERUL PERCENT CD8 (test code = 28544) 61.6 % ABSOLUTE CD8 (test code = 07548) 497 PERUL CD4/CD8 RATIO (test code = 56429) 0.21 Delfino Schumacher AustinVITAMIN [id number] 00:00:00* Test Item Value Reference Range Interpretation Comme nts VITAMIN B-12 (test code = 2840) 358 PG/ML Delfino Schumacher AustinVITAMIN [id number] 00:00:00* Test Item Value Reference Range Interpretation Comme nts VITAMIN B-12 (test code = 2840) 358 PG/ML Delfino Schumacher AustinVITAMIN [id number] 00:00:00* Test Item Value Reference Range Interpretation Comme nts VITAMIN B-12 (test code = 2840) 358 PG/ML Delfino Schumacher AustinVITAMIN [id number] 00:00:00* Test Item Value Reference Range Interpretation Comme nts VITAMIN B-12 (test code = 2840) 358 PG/ML Delfino Schumacher AustinVITAMIN [id number] 00:00:00* Test Item Value Reference Range Interpretation Comme nts VITAMIN B-12 (test code = 2840) 358 PG/ML Delfino Schumacher AustinVITAMIN [id number] 00:00:00* Test Item Value Reference Range Interpretation Comme nts VITAMIN B-12 (test code = 2840) 358 PG/ML Delfino Schumacher AustinVITAMIN [id number] 00:00:00* Test Item Value Reference Range Interpretation Comme nts VITAMIN B-12 (test code = 2840) 358 PG/ML VITAMIN [id number] 00:00:00* Test Item Value Reference Range Interpretation Comme nts VITAMIN B-12 (test code = 2840) 358 PG/ML Delfino Schumacher AustinVITAMIN [id number] 00:00:00* Test Item Value Reference Range Interpretation Comme nts VITAMIN B-12 (test code = 2840) 358 PG/ML VITAMIN [id number] 00:00:00* Test Item Value Reference Range Interpretation Comme nts VITAMIN B-12 (test code = 2840) 358 PG/ML Delfino Schumacher AustinVITAMIN [id number] 00:00:00* Test Item Value Reference Range Interpretation Comme nts VITAMIN B-12 (test code = 2840) 358 PG/ML VITAMIN [id number] 00:00:00* Test Item Value Reference Range Interpretation Comme nts VITAMIN B-12 (test code = 2840) 358 PG/ML Delfino Schumacher AustinVITAMIN [id number] 00:00:00* Test Item Value Reference Range Interpretation Comme nts VITAMIN B-12 (test code = 2840) 358 PG/ML VITAMIN [id number] 00:00:00* Test Item Value Reference Range Interpretation Comme nts VITAMIN B-12 (test code = 2840) 358 PG/ML Delfino Schumacher AustinVITAMIN [id number] 00:00:00* Test Item Value Reference Range Interpretation Comme nts VITAMIN B-12 (test code = 2840) 358 PG/ML Delfino Schumacher AustinVITAMIN [id number] 00:00:00* Test Item Value Reference Range Interpretation Comme nts VITAMIN B-12 (test code = 2840) 358 PG/ML Delfino Schumacher AustinVITAMIN [id number] 00:00:00* Test Item Value Reference Range Interpretation Comme nts VITAMIN B-12 (test code = 2840) 358 PG/ML Delfino Schumacher AustinVITAMIN [id number] 00:00:00* Test Item Value Reference Range Interpretation Comme nts VITAMIN B-12 (test code = 2840) 358 PG/ML Delfino Schumacher AustinVITAMIN [id number] 00:00:00* Test Item Value Reference Range Interpretation Comme nts VITAMIN B-12 (test code = 2840) 358 PG/ML Delfino Schumacher AustinVITAMIN [id number] 00:00:00* Test Item Value Reference Range Interpretation Comme nts VITAMIN B-12 (test code = 2840) 358 PG/ML Delfino Schumacher AustinVITAMIN [id number] 00:00:00* Test Item Value Reference Range Interpretation Comme nts VITAMIN B-12 (test code = 2840) 358 PG/ML Delfino Schumacher AustinVITAMIN [id number] 00:00:00* Test Item Value Reference Range Interpretation Comme nts VITAMIN B-12 (test code = 2840) 358 PG/ML Delfino Schumacher AustinVITAMIN [id number] 00:00:00* Test Item Value Reference Range Interpretation [...] 32 UG/DL UNSATURATED IBC (test code = 17704) 326 UG/DL CALC TOTAL IBC (test code [...] code = 5) 19 NG/ML Delfino Schumacher AustinIRON BINDING CAPACITY AND IRON AND % SATURATION [ADDED] 2018-09-09 00:00:00* Test Item Value Reference Range Interpretation Comme nts IRON, SERUM (test code = 2222) 32 UG/DL UNSATURATED IBC (test code = 46642) 326 UG/DL CALC TOTAL IBC (test code [...] 32 UG/DL UNSATURATED IBC (test code = 91920) 326 UG/DL CALC TOTAL IBC (test code [...] 32 UG/DL UNSATURATED IBC (test code = 57841) 326 UG/DL CALC TOTAL IBC (test code = 7) 358 UG/DL CALC % IRON SAT (test code = 2078) 9 % Delfino OrtaFERRITIN [ADDED]2018-09-09 00:00:00* Test Item Value Reference Range Interpretation Comme nts FERRITIN (test code = 5) 19 NG/ML Delfino OrtaTRANSFERRIN [ADDED]2018-09-09 00:00:00* Test [...] 32 UG/DL UNSATURATED IBC (test code = 17378) 326 UG/DL CALC TOTAL IBC (test code [...] 32 UG/DL UNSATURATED IBC (test code = 79318) 326 UG/DL CALC TOTAL IBC (test code [...] 32 UG/DL UNSATURATED IBC (test code = 53383) 326 UG/DL CALC TOTAL IBC (test code [...] 32 UG/DL UNSATURATED IBC (test code = 99712) 326 UG/DL CALC TOTAL IBC (test code = 7) 358 UG/DL CALC % IRON SAT (test code = 9) 9 % VITAMIN B 12 AND FOLIC ACID [ADDED]2018-09-09 00:00:00* Test Item Value Reference Range Interpretation Comme nts VITAMIN B-12 (test code = 2840) 166 PG/ML FOLIC ACID (test code = 2695) 9.9 UG/L Delfino OrtaFERRITIN [ADDED]2018-09-09 00:00:00* Test Item Value Reference Range Interpretation Comme nts FERRITIN (test code = 2074) 19 NG/ML TRANSFERRIN [ADDED]2018-09-09 00:00:00* Test Item Value Reference Range Interpretation Comme nts TRANSFERRIN (test code = 4936) 298 MG/DL IRON BINDING CAPACITY AND IRON AND % SATURATION [ADDED]2018-09-09 00:00:00* Test Item Value Reference Range Interpretation Comme nts IRON, SERUM (test code = 2) 32 UG/DL UNSATURATED IBC (test code = 34078) 326 UG/DL CALC TOTAL IBC (test code = 7) 358 UG/DL CALC % IRON SAT (test code = 9) 9 % Delfino OrtaCBC W/AUTO DIFF WITH PLATELETS [ADDED]2018-09-09 [...] K/UL COMMENTS (test code = 1016) (NOTE) FERRITIN [ADDED]2018-09-09 00:00:00* Test Item Value Reference [...] 32 UG/DL UNSATURATED IBC (test code = 52478) 326 UG/DL CALC TOTAL IBC (test code = 2077) 358 UG/DL CALC % IRON SAT (test code = 2079) 9 % VITAMIN B 12 AND FOLIC ACID [ADDED]2018-09-09 [...] 32 UG/DL UNSATURATED IBC (test code = 81288) 326 UG/DL CALC TOTAL IBC (test code = 2077) 358 UG/DL CALC % IRON SAT (test code = 2079) 9 % Delfino Schumacher AustinFERRITIN [ADDED]2018-09-09 00:00:00* Test Item Value Reference Range Interpretation Comme nts FERRITIN (test code = 2075) 19 NG/ML TRANSFERRIN [ADDED]2018-09-09 00:00:00* Test Item Value Reference Range Interpretation Comme nts TRANSFERRIN (test code = 4936) 298 MG/DL FERRITIN [ADDED]2018-09-09 00:00:00* Test Item Value Reference [...] ACID (test code = 2695) 9.9 UG/L CBC W/AUTO DIFF WITH PLATELETS [ADDED]2018-09-09 00:00:00* [...] 32 UG/DL UNSATURATED IBC (test code = 17956) 326 UG/DL CALC TOTAL IBC (test code [...] (test code = 2695) 9.9 UG/L Delfino OrtaCBC W/AUTO DIFF WITH PLATELETS [ADDED]2018-09-09 [...] K/UL COMMENTS (test code = 1016) (NOTE) IRON BINDING CAPACITY AND IRON AND % SATURATION [ADDED]2018-09-09 00:00:00* Test Item Value Reference Range Interpretation Comme nts IRON, SERUM (test code = 2222) 32 UG/DL UNSATURATED IBC (test code = 85188) 326 UG/DL CALC TOTAL IBC (test code = 2077) 358 UG/DL CALC % IRON SAT (test code = 2079) 9 % Delfino OrtaFERRITIN [ADDED]2018-09-09 00:00:00* Test Item Value Reference Range Interpretation Comme nts FERRITIN (test code = 2075) 19 NG/ML Delfino Schumacher AustinTRANSFERRIN [ADDED]2018-09-09 00:00:00* Test Item Value Reference Range Interpretation Comme nts TRANSFERRIN (test code = 4936) 298 MG/DL Delfino Schumacher YouVITAMIN B 12 AND FOLIC [...] SAT (test code = 2078) 9 % CBC W/AUTO DIFF WITH PLATELETS [ADDED]2018-09-09 00:00:00* [...] (test code = 1016) (NOTE) Delfino Schumacher AustinFERRITIN [ADDED]2018-09-09 00:00:00* Test Item [...] (test code = 9) 9 % Delfino Schumacher AustinFERRITIN [ADDED]2018-09-09 00:00:00* [...] 32 UG/DL UNSATURATED IBC (test code = 39864) 326 UG/DL CALC TOTAL IBC (test code [...] 32 UG/DL UNSATURATED IBC (test code = 29353) 326 UG/DL CALC TOTAL IBC (test code = 2077) 358 UG/DL CALC % IRON SAT (test code = 2079) 9 % Delfino Schumacher AustinFERRITIN [ADDED]2018-09-09 00:00:00* Test Item Value Reference Range Interpretation Comme nts FERRITIN (test code = 2075) 19 NG/ML Delfino Schumachre AustinTRANSFERRIN [ADDED]2018-09-09 00:00:00* Test Item Value Reference [...] 32 UG/DL UNSATURATED IBC (test code = 82341) 326 UG/DL CALC TOTAL IBC (test code [...] 32 UG/DL UNSATURATED IBC (test code = 21906) 326 UG/DL CALC TOTAL IBC (test code [...] 32 UG/DL UNSATURATED IBC (test code = 59787) 326 UG/DL CALC TOTAL IBC (test code [...] 32 UG/DL UNSATURATED IBC (test code = 11882) 326 UG/DL CALC TOTAL IBC (test code [...] code = 2695) 9.9 UG/L Delfino Endy YouVITAMIN B 12 AND FOLIC [...] 32 UG/DL UNSATURATED IBC (test code = 51455) 326 UG/DL CALC TOTAL IBC (test code = 207) 358 UG/DL CALC % IRON SAT (test [...] COMMENTS (test code = 1016) (NOTE) Delfino OrtaIRON BINDING CAPACITY AND IRON AND % SATURATION [ADDED] 2018-09-09 00:00:00* Test Item Value Reference Range Interpretation Comme nts IRON, SERUM (test code = 2222) 32 UG/DL UNSATURATED IBC (test code = 23705) 326 UG/DL CALC TOTAL IBC (test code = 7) 358 UG/DL CALC % IRON SAT (test code = 2079) 9 % Delfino Schumacher AustinCBC W/AUTO [id number] 00:00:00* Test Item Value Reference Range Interpretation [...] 1015) 230 K/UL Delfino Schumacher AustinCOMPREHENSIVE METABOLIC [id number] 00:00:00* Test Item Value Reference Range Interpretation Comme nts GLUCOSE (test code = 2217) 84 MG/DL BUN (test code = 2208) 12 MG/DL CREATININE (test code = 2214) 1.02 MG/DL eGFR AMER. (test cod e = 36851) 72 ML/MIN/1.73 eGFR NON- AMER. (test code = 15730) 62 ML/MIN/1.73 CALC BUN/CREAT (test code = [...] = 2219) 9 U/L Delfino Schumacher AustinURIC [id number] 00:00:00* Test Item Value Reference Range Interpretation Comme nts URIC ACID (test code = 2233) 7.8 MG/DL Delfino Schumacher AustinCOMPREHENSIVE METABOLIC [id number] 00:00:00* Test Item Value Reference Range Interpretation Comme nts GLUCOSE (test code = 2217) 84 MG/DL BUN (test code = 2208) 12 MG/DL CREATININE (test code = 2214) 1.02 MG/DL eGFR AMER. (test cod e = 80761) 72 ML/MIN/1.73 eGFR NON- AMER. (test code = 94728) 62 ML/MIN/1.73 CALC BUN/CREAT (test code = [...] = 2219) 9 U/L Delfino OrtaCBC W/AUTO [id number] 00:00:00* Test Item Value Reference Range Interpretation [...] = 1015) 230 K/UL Delfino OrtaCOMPREHENSIVE METABOLIC [id number] 00:00:00* Test Item Value Reference Range Interpretation Comme nts GLUCOSE (test code = 2217) 84 MG/DL BUN (test code = 2208) 12 MG/DL CREATININE (test code = 2214) 1.02 MG/DL eGFR AMER. (test cod e = 65257) 72 ML/MIN/1.73 eGFR NON- AMER. (test code = 91556) 62 ML/MIN/1.73 CALC BUN/CREAT (test code = [...] code = 2219) 9 U/L Delfino OrtaURIC [id number] 00:00:00* Test Item Value Reference Range Interpretation Comme nts URIC ACID (test code = 2233) 7.8 MG/DL Delfino OrtaC W/AUTO [id number] 00:00:00* Test Item Value Reference Range Interpretation [...] = 1015) 230 K/UL Delfino OrtaCOMPREHENSIVE METABOLIC [id number] 00:00:00* Test Item Value Reference Range Interpretation Comme nts GLUCOSE (test code = 2217) 84 MG/DL BUN (test code = 2208) 12 MG/DL CREATININE (test code = 2214) 1.02 MG/DL eGFR AMER. (test cod e = 65269) 72 ML/MIN/1.73 eGFR NON- AMER. (test code = 25435) 62 ML/MIN/1.73 CALC BUN/CREAT (test code = [...] code = 2219) 9 U/L Delfino OrtaURIC [id number] 00:00:00* Test Item Value Reference Range Interpretation Comme carlito URIC ACID (test code = 2233) 7.8 MG/DL Delfino OrtaCBC W/AUTO [id number] 00:00:00* Test Item Value Reference Range Interpretation [...] = 1015) 230 K/UL Delfino OrtaCOMPREHENSIVE METABOLIC [id number] 00:00:00* Test Item Value Reference Range Interpretation Comme nts GLUCOSE (test code = 2217) 84 MG/DL BUN (test code = 2208) 12 MG/DL CREATININE (test code = 2214) 1.02 MG/DL eGFR AMER. (test cod e = 18985) 72 ML/MIN/1.73 eGFR NON- AMER. (test code = 76677) 62 ML/MIN/1.73 CALC BUN/CREAT (test code = [...] code = 2219) 9 U/L Delfino OrtaURIC [id number] 00:00:00* Test Item Value Reference Range Interpretation Comme nts URIC ACID (test code = 2233) 7.8 MG/DL Delfino OrtaCBC W/AUTO [id number] 00:00:00* Test Item Value Reference Range Interpretation [...] = 1015) 230 K/UL Delfino OrtaCOMPREHENSIVE METABOLIC [id number] 00:00:00* Test Item Value Reference Range Interpretation Comme nts GLUCOSE (test code = 2217) 84 MG/DL BUN (test code = 2208) 12 MG/DL CREATININE (test code = 2214) 1.02 MG/DL eGFR AMER. (test cod e = 04373) 72 ML/MIN/1.73 eGFR NON- AMER. (test code = 69202) 62 ML/MIN/1.73 CALC BUN/CREAT (test code = [...] code = 2219) 9 U/L Delfino OrtaURIC [id number] 00:00:00* Test Item Value Reference Range Interpretation Comme nts URIC ACID (test code = 2233) 7.8 MG/DL Delfino OrtaCBC W/AUTO [id number] 00:00:00* Test Item Value Reference Range Interpretation [...] = 1015) 230 K/UL Delfino OrtaCOMPREHENSIVE METABOLIC [id number] 00:00:00* Test Item Value Reference Range Interpretation Comme nts GLUCOSE (test code = 2217) 84 MG/DL BUN (test code = 2208) 12 MG/DL CREATININE (test code = 2214) 1.02 MG/DL eGFR AMER. (test cod e = 27422) 72 ML/MIN/1.73 eGFR NON- AMER. (test code = 66085) 62 ML/MIN/1.73 CALC BUN/CREAT (test code = [...] code = 2219) 9 U/L Delfino OrtaURIC [id number] 00:00:00* Test Item Value Reference Range Interpretation Comme nts URIC ACID (test code = 2233) 7.8 MG/DL Delfino Schumacher YouCBC W/AUTO [id number] 00:00:00* Test Item Value Reference Range Interpretation [...] 1015) 230 K/UL Delfino Schumacher YouCOMPREHENSIVE METABOLIC [id number] 00:00:00* Test Item Value Reference Range Interpretation Comme nts GLUCOSE (test code = 2217) 84 MG/DL BUN (test code = 2208) 12 MG/DL CREATININE (test code = 2214) 1.02 MG/DL eGFR AMER. (test cod e = 73992) 72 ML/MIN/1.73 eGFR NON- AMER. (test code = 60570) 62 ML/MIN/1.73 CALC BUN/CREAT (test code = [...] code = 2219) 9 U/L Delfino OrtaURIC [id number] 00:00:00* Test Item Value Reference Range Interpretation Comme nts URIC ACID (test code = 2233) 7.8 MG/DL URIC [id number] 00:00:00* Test Item Value Reference Range Interpretation Comme nts URIC ACID (test code = 2233) 7.8 MG/DL Delfino OrtaCBC W/AUTO [id number] 00:00:00* Test Item Value Reference Range Interpretation [...] code = 1015) 230 K/UL CBC W/AUTO [id number] 00:00:00* Test Item Value Reference Range Interpretation [...] = 1015) 230 K/UL Delfino OrtaCOMPREHENSIVE METABOLIC [id number] 00:00:00* Test Item Value Reference Range Interpretation Comme nts GLUCOSE (test code = 2217) 84 MG/DL BUN (test code = 2208) 12 MG/DL CREATININE (test code = 2214) 1.02 MG/DL eGFR AMER. (test cod e = 20140) 72 ML/MIN/1.73 eGFR NON- AMER. (test code = 07257) 62 ML/MIN/1.73 CALC BUN/CREAT (test code = [...] code = 2219) 9 U/L COMPREHENSIVE METABOLIC [id number] 00:00:00* Test Item Value Reference Range Interpretation Comme nts GLUCOSE (test code = 2217) 84 MG/DL BUN (test code = 2208) 12 MG/DL CREATININE (test code = 2214) 1.02 MG/DL eGFR AMER. (test cod e = 34477) 72 ML/MIN/1.73 eGFR NON- AMER. (test code = 02397) 62 ML/MIN/1.73 CALC BUN/CREAT (test code = [...] = 2219) 9 U/L Delfino Schumacher AustinURIC [id number] 00:00:00* Test Item Value Reference Range Interpretation Comme nts URIC ACID (test code = 2233) 7.8 MG/DL URIC [id number] 00:00:00* Test Item Value Reference Range Interpretation Comme nts URIC ACID (test code = 2233) 7.8 MG/DL Delfino OrtaCBC W/AUTO [id number] 00:00:00* Test Item Value Reference Range Interpretation [...] code = 1015) 230 K/UL CBC W/AUTO [id number] 00:00:00* Test Item Value Reference Range Interpretation [...] 1015) 230 K/UL Delfino Schumacher AustinCOMPREHENSIVE METABOLIC [id number] 00:00:00* Test Item Value Reference Range Interpretation Comme nts GLUCOSE (test code = 2217) 84 MG/DL BUN (test code = 2208) 12 MG/DL CREATININE (test code = 2214) 1.02 MG/DL eGFR AMER. (test cod e = 68124) 72 ML/MIN/1.73 eGFR NON- AMER. (test code = 80064) 62 ML/MIN/1.73 CALC BUN/CREAT (test code = [...] code = 2219) 9 U/L COMPREHENSIVE METABOLIC [id number] 00:00:00* Test Item Value Reference Range Interpretation Comme nts GLUCOSE (test code = 2217) 84 MG/DL BUN (test code = 2208) 12 MG/DL CREATININE (test code = 2214) 1.02 MG/DL eGFR AMER. (test cod e = 16555) 72 ML/MIN/1.73 eGFR NON- AMER. (test code = 23862) 62 ML/MIN/1.73 CALC BUN/CREAT (test code = [...] code = 2219) 9 U/L Delfino F AustinURIC [id number] 00:00:00* Test Item Value Reference Range Interpretation Comme nts URIC ACID (test code = 2233) 7.8 MG/DL CBC W/AUTO [id number] 00:00:00* Test Item Value Reference Range Interpretation [...] COUNT (test code = 1015) 230 K/UL URIC [id number] 00:00:00* Test Item Value Reference Range Interpretation Comme nts URIC ACID (test code = 2233) 7.8 MG/DL Delfino OrtaCOMPREHENSIVE METABOLIC [id number] 00:00:00* Test Item Value Reference Range Interpretation Comme nts GLUCOSE (test code = 2217) 84 MG/DL BUN (test code = 2208) 12 MG/DL CREATININE (test code = 2214) 1.02 MG/DL eGFR AMER. (test cod e = 65738) 72 ML/MIN/1.73 eGFR NON- AMER. (test code = 44229) 62 ML/MIN/1.73 CALC BUN/CREAT (test code = [...] code = 2219) 9 U/L CBC W/AUTO [id number] 00:00:00* Test Item Value Reference Range Interpretation [...] code = 1015) 230 K/UL Delfino OrtaURIC [id number] 00:00:00* Test Item Value Reference Range Interpretation Comme nts URIC ACID (test code = 2233) 7.8 MG/DL COMPREHENSIVE METABOLIC [id number] 00:00:00* Test Item Value Reference Range Interpretation Comme nts GLUCOSE (test code = 2217) 84 MG/DL BUN (test code = 2208) 12 MG/DL CREATININE (test code = 2214) 1.02 MG/DL eGFR AMER. (test cod e = 96539) 72 ML/MIN/1.73 eGFR NON- AMER. (test code = 60182) 62 ML/MIN/1.73 CALC BUN/CREAT (test code = [...] = 2219) 9 U/L Delfino OrtaCBC W/AUTO [id number] 00:00:00* Test Item Value Reference Range Interpretation [...] COUNT (test code = 1015) 230 K/UL URIC [id number] 00:00:00* Test Item Value Reference Range Interpretation Comme nts URIC ACID (test code = 2233) 7.8 MG/DL Delfino Schumacher AustinCOMPREHENSIVE METABOLIC [id number] 00:00:00* Test Item Value Reference Range Interpretation Comme nts GLUCOSE (test code = 2217) 84 MG/DL BUN (test code = 2208) 12 MG/DL CREATININE (test code = 2214) 1.02 MG/DL eGFR AMER. (test cod e = 64604) 72 ML/MIN/1.73 eGFR NON- AMER. (test code = 56575) 62 ML/MIN/1.73 CALC BUN/CREAT (test code = [...] code = 2219) 9 U/L CBC W/AUTO [id number] 00:00:00* Test Item Value Reference Range Interpretation [...] 1015) 230 K/UL Delfino Endy YouCOMPREHENSIVE METABOLIC [id number] 00:00:00* Test Item Value Reference Range Interpretation Comme nts GLUCOSE (test code = 2217) 84 MG/DL BUN (test code = 2208) 12 MG/DL CREATININE (test code = 2214) 1.02 MG/DL eGFR AMER. (test cod e = 29882) 72 ML/MIN/1.73 eGFR NON- AMER. (test code = 50833) 62 ML/MIN/1.73 CALC BUN/CREAT (test code = [...] = 2219) 9 U/L Delfino Endy YouURIC [id number] 00:00:00* Test Item Value Reference Range Interpretation Comme nts URIC ACID (test code = 2233) 7.8 MG/DL Delfino Endy YouCBC W/AUTO [id number] 00:00:00* Test Item Value Reference Range Interpretation [...] = 1015) 230 K/UL Delfino OrtaCOMPREHENSIVE METABOLIC [id number] 00:00:00* Test Item Value Reference Range Interpretation Comme nts GLUCOSE (test code = 2217) 84 MG/DL BUN (test code = 2208) 12 MG/DL CREATININE (test code = 2214) 1.02 MG/DL eGFR AMER. (test cod e = 64607) 72 ML/MIN/1.73 eGFR NON- AMER. (test code = 85140) 62 ML/MIN/1.73 CALC BUN/CREAT (test code = [...] code = 2219) 9 U/L Delfino OrtaURIC [id number] 00:00:00* Test Item Value Reference Range Interpretation Comme nts URIC ACID (test code = 2233) 7.8 MG/DL Delfino OrtaCBC W/AUTO [id number] 00:00:00* Test Item Value Reference Range Interpretation [...] = 1015) 230 K/UL Delfino OrtaCOMPREHENSIVE METABOLIC [id number] 00:00:00* Test Item Value Reference Range Interpretation Comme nts GLUCOSE (test code = 2217) 84 MG/DL BUN (test code = 2208) 12 MG/DL CREATININE (test code = 2214) 1.02 MG/DL eGFR AMER. (test cod e = 45785) 72 ML/MIN/1.73 eGFR NON- AMER. (test code = 03370) 62 ML/MIN/1.73 CALC BUN/CREAT (test code = [...] code = 2219) 9 U/L Delfino OrtaURIC [id number] 00:00:00* Test Item Value Reference Range Interpretation Comme nts URIC ACID (test code = 2233) 7.8 MG/DL Delfino OrtaCBC W/AUTO [id number] 00:00:00* Test Item Value Reference Range Interpretation [...] = 1015) 230 K/UL Delfino OrtaCOMPREHENSIVE METABOLIC [id number] 00:00:00* Test Item Value Reference Range Interpretation Comme nts GLUCOSE (test code = 2217) 84 MG/DL BUN (test code = 2208) 12 MG/DL CREATININE (test code = 2214) 1.02 MG/DL eGFR AMER. (test cod e = 92594) 72 ML/MIN/1.73 eGFR NON- AMER. (test code = 90578) 62 ML/MIN/1.73 CALC BUN/CREAT (test code = [...] code = 2219) 9 U/L Delfino OrtaURIC [id number] 00:00:00* Test Item Value Reference Range Interpretation Comme nts URIC ACID (test code = 2233) 7.8 MG/DL Delfino OrtaCBC W/AUTO [id number] 00:00:00* Test Item Value Reference Range Interpretation [...] = 1015) 230 K/UL Delfino OrtaCOMPREHENSIVE METABOLIC [id number] 00:00:00* Test Item Value Reference Range Interpretation Comme nts GLUCOSE (test code = 2217) 84 MG/DL BUN (test code = 2208) 12 MG/DL CREATININE (test code = 2214) 1.02 MG/DL eGFR AMER. (test cod e = 03153) 72 ML/MIN/1.73 eGFR NON- AMER. (test code = 02080) 62 ML/MIN/1.73 CALC BUN/CREAT (test code = [...] code = 2219) 9 U/L Delfino OrtaURIC [id number] 00:00:00* Test Item Value Reference Range Interpretation Comme nts URIC ACID (test code = 2233) 7.8 MG/DL Delfino OrtaCBC W/AUTO [id number] 00:00:00* Test Item Value Reference Range Interpretation [...] = 1015) 230 K/UL Delfino OrtaCOMPREHENSIVE METABOLIC [id number] 00:00:00* Test Item Value Reference Range Interpretation Comme nts GLUCOSE (test code = 2217) 84 MG/DL BUN (test code = 2208) 12 MG/DL CREATININE (test code = 2214) 1.02 MG/DL eGFR AMER. (test cod e = 97440) 72 ML/MIN/1.73 eGFR NON- AMER. (test code = 30870) 62 ML/MIN/1.73 CALC BUN/CREAT (test code = [...] code = 2219) 9 U/L Delfino OrtaURIC [id number] 00:00:00* Test Item Value Reference Range Interpretation Comme nts URIC ACID (test code = 2233) 7.8 MG/DL Delfino OrtaCBC W/AUTO [id number] 00:00:00* Test Item Value Reference Range Interpretation [...] code = 1015) 230 K/UL Delfino OrtaURIC [id number] 00:00:00* Test Item Value Reference Range Interpretation Comme nts URIC ACID (test code = 2233) 7.8 MG/DL Delfino Schumacher AustinCBC W/AUTO [id number] 00:00:00* Test Item Value Reference Range Interpretation [...] = 1015) 230 K/UL Delfino OrtaCOMPREHENSIVE METABOLIC [id number] 00:00:00* Test Item Value Reference Range Interpretation Comme nts GLUCOSE (test code = 2217) 84 MG/DL BUN (test code = 2208) 12 MG/DL CREATININE (test code = 2214) 1.02 MG/DL eGFR AMER. (test cod e = 85576) 72 ML/MIN/1.73 eGFR NON- AMER. (test code = 16873) 62 ML/MIN/1.73 CALC BUN/CREAT (test code = [...] code = 2219) 9 U/L Delfino OrtaURIC [id number] 00:00:00* Test Item Value Reference Range Interpretation Comme nts URIC ACID (test code = 2233) 7.8 MG/DL Delfino OrtaCBC W/AUTO [id number] 00:00:00* Test Item Value Reference Range Interpretation [...] = 1015) 230 K/UL Delfino OrtaCOMPREHENSIVE METABOLIC [id number] 00:00:00* Test Item Value Reference Range Interpretation Comme nts GLUCOSE (test code = 2217) 84 MG/DL BUN (test code = 2208) 12 MG/DL CREATININE (test code = 2214) 1.02 MG/DL eGFR AMER. (test cod e = 76580) 72 ML/MIN/1.73 eGFR NON- AMER. (test code = 59635) 62 ML/MIN/1.73 CALC BUN/CREAT (test code = [...] code = 2219) 9 U/L Delfino OrtaURIC [id number] 00:00:00* Test Item Value Reference Range Interpretation Comme nts URIC ACID (test code = 2233) 7.8 MG/DL Delfino Schumacher AustinLIPID [id number] 00:00:00* Test Item Value Reference Range Interpretation Comme nts CHOLESTEROL (test code = 2210) 215 MG/DL TRIGLYCERIDES (test code = 2232) 61 MG/DL HDL CHOLESTEROL (test code = 2220) 93 MG/DL CALC LDL CHOL (test code = 2237) 110 MG/DL RISK RATIO LDL/HDL (test cod e = 2238) 1.18 RATIO Delfino OrtaCOMPREHENSIVE METABOLIC [id number] 00:00:00* Test Item Value Reference Range Interpretation Comme nts GLUCOSE (test code = 2217) 93 MG/DL BUN (test code = 2208) 20 MG/DL CREATININE (test code = 2214) 1.18 MG/DL eGFR AMER. (test cod e = 85495) 61 ML/MIN/1.73 eGFR NON- AMER. (test code = 23599) 52 ML/MIN/1.73 CALC BUN/CREAT (test code = [...] code = 2219) 15 U/L Delfino Schumacher AustinCOMPREHENSIVE METABOLIC [id number] 00:00:00* Test Item Value Reference Range Interpretation Comme nts GLUCOSE (test code = 2217) 93 MG/DL BUN (test code = 2208) 20 MG/DL CREATININE (test code = 2214) 1.18 MG/DL eGFR AMER. (test cod e = 88611) 61 ML/MIN/1.73 eGFR NON- AMER. (test code = 74567) 52 ML/MIN/1.73 CALC BUN/CREAT (test code = [...] code = 2219) 15 U/L [facility] [id number] 00:00:00* Test Item Value Reference Range Interpretation [...] (test code = 1015) 317 K/UL Delfino OtraLIPID [id number] 00:00:00* Test Item Value Reference Range Interpretation Comme nts CHOLESTEROL (test code = 2210) 215 MG/DL TRIGLYCERIDES (test code = 2232) 61 MG/DL HDL CHOLESTEROL (test code = 2220) 93 MG/DL CALC LDL CHOL (test code = 2237) 110 MG/DL RISK RATIO LDL/HDL (test cod e = 2238) 1.18 RATIO Delfino OrtaCOMPREHENSIVE METABOLIC [id number] 00:00:00* Test Item Value Reference Range Interpretation Comme nts GLUCOSE (test code = 2217) 93 MG/DL BUN (test code = 2208) 20 MG/DL CREATININE (test code = 2214) 1.18 MG/DL eGFR AMER. (test cod e = 11824) 61 ML/MIN/1.73 eGFR NON- AMER. (test code = 87691) 52 ML/MIN/1.73 CALC BUN/CREAT (test code = [...] = 2219) 15 U/L Delfino OrtaCBC W/AUTO [id number] 00:00:00* Test Item Value Reference Range Interpretation [...] code = 1015) 317 K/UL Delfino OrtaLIPID [id number] 00:00:00* Test Item Value Reference Range Interpretation Comme nts CHOLESTEROL (test code = 2210) 215 MG/DL TRIGLYCERIDES (test code = 2232) 61 MG/DL HDL CHOLESTEROL (test code = 2220) 93 MG/DL CALC LDL CHOL (test code = 2237) 110 MG/DL RISK RATIO LDL/HDL (test cod e = 2238) 1.18 RATIO Delfino OrtaCOMPREHENSIVE METABOLIC [id number] 00:00:00* Test Item Value Reference Range Interpretation Comme nts GLUCOSE (test code = 2217) 93 MG/DL BUN (test code = 2208) 20 MG/DL CREATININE (test code = 2214) 1.18 MG/DL eGFR AMER. (test cod e = 63041) 61 ML/MIN/1.73 eGFR NON- AMER. (test code = 21537) 52 ML/MIN/1.73 CALC BUN/CREAT (test code = [...] = 2219) 15 U/L Delfino OrtaCBC W/AUTO [id number] 00:00:00* Test Item Value Reference Range Interpretation [...] code = 1015) 317 K/UL Delfino OrtaLIPID [id number] 00:00:00* Test Item Value Reference Range Interpretation Comme nts CHOLESTEROL (test code = 2210) 215 MG/DL TRIGLYCERIDES (test code = 2232) 61 MG/DL HDL CHOLESTEROL (test code = 2220) 93 MG/DL CALC LDL CHOL (test code = 2237) 110 MG/DL RISK RATIO LDL/HDL (test cod e = 2238) 1.18 RATIO Delfino OrtaCOMPREHENSIVE METABOLIC [id number] 00:00:00* Test Item Value Reference Range Interpretation Comme nts GLUCOSE (test code = 2217) 93 MG/DL BUN (test code = 2208) 20 MG/DL CREATININE (test code = 2214) 1.18 MG/DL eGFR AMER. (test cod e = 96766) 61 ML/MIN/1.73 eGFR NON- AMER. (test code = 85560) 52 ML/MIN/1.73 CALC BUN/CREAT (test code = [...] = 2219) 15 U/L Delfino OrtaCBC W/AUTO [id number] 00:00:00* Test Item Value Reference Range Interpretation [...] code = 1015) 317 K/UL Delfino OrtaLIPID [id number] 00:00:00* Test Item Value Reference Range Interpretation Comme nts CHOLESTEROL (test code = 2210) 215 MG/DL TRIGLYCERIDES (test code = 2232) 61 MG/DL HDL CHOLESTEROL (test code = 2220) 93 MG/DL CALC LDL CHOL (test code = 2237) 110 MG/DL RISK RATIO LDL/HDL (test cod e = 2238) 1.18 RATIO Delfino OrtaCOMPREHENSIVE METABOLIC [id number] 00:00:00* Test Item Value Reference Range Interpretation Comme nts GLUCOSE (test code = 2217) 93 MG/DL BUN (test code = 2208) 20 MG/DL CREATININE (test code = 2214) 1.18 MG/DL eGFR AMER. (test cod e = 15158) 61 ML/MIN/1.73 eGFR NON- AMER. (test code = 18485) 52 ML/MIN/1.73 CALC BUN/CREAT (test code = [...] = 2219) 15 U/L Delfino OrtaCBC W/AUTO [id number] 00:00:00* Test Item Value Reference Range Interpretation [...] code = 1015) 317 K/UL Delfino OrtaLIPID [id number] 00:00:00* Test Item Value Reference Range Interpretation Comme nts CHOLESTEROL (test code = 2210) 215 MG/DL TRIGLYCERIDES (test code = 2232) 61 MG/DL HDL CHOLESTEROL (test code = 2220) 93 MG/DL CALC LDL CHOL (test code = 2237) 110 MG/DL RISK RATIO LDL/HDL (test cod e = 2238) 1.18 RATIO Delfino OrtaCOMPREHENSIVE METABOLIC [id number] 00:00:00* Test Item Value Reference Range Interpretation Comme nts GLUCOSE (test code = 2217) 93 MG/DL BUN (test code = 2208) 20 MG/DL CREATININE (test code = 2214) 1.18 MG/DL eGFR AMER. (test cod e = 31404) 61 ML/MIN/1.73 eGFR NON- AMER. (test code = 03914) 52 ML/MIN/1.73 CALC BUN/CREAT (test code = [...] 2219) 15 U/L Delfino Schumacher YouCBC W/AUTO [id number] 00:00:00* Test Item Value Reference Range Interpretation [...] code = 1015) 317 K/UL Delfino OrtaLIPID [id number] 00:00:00* Test Item Value Reference Range Interpretation Comme nts CHOLESTEROL (test code = 2210) 215 MG/DL TRIGLYCERIDES (test code = 2232) 61 MG/DL HDL CHOLESTEROL (test code = 2220) 93 MG/DL CALC LDL CHOL (test code = 2237) 110 MG/DL RISK RATIO LDL/HDL (test cod e = 2238) 1.18 RATIO Delfino OrtaCOMPREHENSIVE METABOLIC [id number] 00:00:00* Test Item Value Reference Range Interpretation Comme nts GLUCOSE (test code = 2217) 93 MG/DL BUN (test code = 2208) 20 MG/DL CREATININE (test code = 2214) 1.18 MG/DL eGFR AMER. (test cod e = 73639) 61 ML/MIN/1.73 eGFR NON- AMER. (test code = 70333) 52 ML/MIN/1.73 CALC BUN/CREAT (test code = [...] = 2219) 15 U/L Delfino OrtaCBC W/AUTO [id number] 00:00:00* Test Item Value Reference Range Interpretation [...] (test code = 1015) 317 K/UL LIPID [id number] 00:00:00* Test Item Value Reference Range Interpretation Comme nts CHOLESTEROL (test code = 2210) 215 MG/DL TRIGLYCERIDES (test code = 2232) 61 MG/DL HDL CHOLESTEROL (test code = 2220) 93 MG/DL CALC LDL CHOL (test code = 2237) 110 MG/DL RISK RATIO LDL/HDL (test cod e = 2238) 1.18 RATIO CBC W/AUTO [id number] 00:00:00* Test Item Value Reference Range Interpretation [...] 1015) 317 K/UL Delfino F AustinCOMPREHENSIVE METABOLIC [id number] 00:00:00* Test Item Value Reference Range Interpretation Comme nts GLUCOSE (test code = 2217) 93 MG/DL BUN (test code = 2208) 20 MG/DL CREATININE (test code = 2214) 1.18 MG/DL eGFR AMER. (test cod e = 30395) 61 ML/MIN/1.73 eGFR NON- AMER. (test code = 94758) 52 ML/MIN/1.73 CALC BUN/CREAT (test code = [...] (test code = 2219) 15 U/L LIPID [id number] 00:00:00* Test Item Value Reference Range Interpretation Comme nts CHOLESTEROL (test code = 2210) 215 MG/DL TRIGLYCERIDES (test code = 2232) 61 MG/DL HDL CHOLESTEROL (test code = 2220) 93 MG/DL CALC LDL CHOL (test code = 2237) 110 MG/DL RISK RATIO LDL/HDL (test cod e = 2238) 1.18 RATIO Delfino F AustinCOMPREHENSIVE METABOLIC [id number] 00:00:00* Test Item Value Reference Range Interpretation Comme nts GLUCOSE (test code = 2217) 93 MG/DL BUN (test code = 2208) 20 MG/DL CREATININE (test code = 2214) 1.18 MG/DL eGFR AMER. (test cod e = 88551) 61 ML/MIN/1.73 eGFR NON- AMER. (test code = 43620) 52 ML/MIN/1.73 CALC BUN/CREAT (test code = [...] ALT (test code = 2219) 15 U/L Deflino Schumacher YouCBC W/AUTO [id number] 00:00:00* Test Item Value Reference Range Interpretation [...] code = 1015) 317 K/UL CBC W/AUTO [id number] 00:00:00* Test Item Value Reference Range Interpretation [...] = 1015) 317 K/UL Delfino Schumacher AustinLIPID [id number] 00:00:00* Test Item Value Reference Range Interpretation Comme nts CHOLESTEROL (test code = 2210) 215 MG/DL TRIGLYCERIDES (test code = 2232) 61 MG/DL HDL CHOLESTEROL (test code = 2220) 93 MG/DL CALC LDL CHOL (test code = 2237) 110 MG/DL RISK RATIO LDL/HDL (test cod e = 2238) 1.18 RATIO LIPID [id number] 00:00:00* Test Item Value Reference Range Interpretation Comme nts CHOLESTEROL (test code = 2210) 215 MG/DL TRIGLYCERIDES (test code = 2232) 61 MG/DL HDL CHOLESTEROL (test code = 2220) 93 MG/DL CALC LDL CHOL (test code = 2237) 110 MG/DL RISK RATIO LDL/HDL (test cod e = 2238) 1.18 RATIO Delfino OrtaCOMPREHENSIVE METABOLIC [id number] 00:00:00* Test Item Value Reference Range Interpretation Comme nts GLUCOSE (test code = 2217) 93 MG/DL BUN (test code = 2208) 20 MG/DL CREATININE (test code = 2214) 1.18 MG/DL eGFR AMER. (test cod e = 02222) 61 ML/MIN/1.73 eGFR NON- AMER. (test code = 20443) 52 ML/MIN/1.73 CALC BUN/CREAT (test code = [...] code = 2219) 15 U/L COMPREHENSIVE METABOLIC [id number] 00:00:00* Test Item Value Reference Range Interpretation Comme nts GLUCOSE (test code = 2217) 93 MG/DL BUN (test code = 2208) 20 MG/DL CREATININE (test code = 2214) 1.18 MG/DL eGFR AMER. (test cod e = 39838) 61 ML/MIN/1.73 eGFR NON- AMER. (test code = 14358) 52 ML/MIN/1.73 CALC BUN/CREAT (test code = [...] (test code = 2219) 15 U/L Delfino OrtaCB W/AUTO [id number] 00:00:00* Test Item Value Reference Range Interpretation [...] code = 1015) 317 K/UL CBC W/AUTO [id number] 00:00:00* Test Item Value Reference Range Interpretation [...] code = 1015) 317 K/UL Delfino F AustinLIPID [id number] 00:00:00* Test Item Value Reference Range Interpretation Comme nts CHOLESTEROL (test code = 2210) 215 MG/DL TRIGLYCERIDES (test code = 2232) 61 MG/DL HDL CHOLESTEROL (test code = 2220) 93 MG/DL CALC LDL CHOL (test code = 2237) 110 MG/DL RISK RATIO LDL/HDL (test cod e = 2238) 1.18 RATIO COMPREHENSIVE METABOLIC [id number] 00:00:00* Test Item Value Reference Range Interpretation Comme nts GLUCOSE (test code = 2217) 93 MG/DL BUN (test code = 2208) 20 MG/DL CREATININE (test code = 2214) 1.18 MG/DL eGFR AMER. (test cod e = 56532) 61 ML/MIN/1.73 eGFR NON- AMER. (test code = 30351) 52 ML/MIN/1.73 CALC BUN/CREAT (test code = [...] (test code = 2219) 15 U/L LIPID [id number] 00:00:00* Test Item Value Reference Range Interpretation Comme nts CHOLESTEROL (test code = 2210) 215 MG/DL TRIGLYCERIDES (test code = 2232) 61 MG/DL HDL CHOLESTEROL (test code = 2220) 93 MG/DL CALC LDL CHOL (test code = 2237) 110 MG/DL RISK RATIO LDL/HDL (test cod e = 2238) 1.18 RATIO Delfino Schumacher WalesCBC W/AUTO [id number] 00:00:00* Test Item Value Reference Range Interpretation [...] COUNT (test code = 1015) 317 K/UL COMPREHENSIVE METABOLIC [id number] 00:00:00* Test Item Value Reference Range Interpretation Comme nts GLUCOSE (test code = 2217) 93 MG/DL BUN (test code = 2208) 20 MG/DL CREATININE (test code = 2214) 1.18 MG/DL eGFR AMER. (test cod e = 49498) 61 ML/MIN/1.73 eGFR NON- AMER. (test code = 63276) 52 ML/MIN/1.73 CALC BUN/CREAT (test code = [...] 0.4 MG/DL ALKALINE PHOSPHATASE (test code = 220) 105 U/L AST (test code = 2218) 39 U/L ALT (test code = 2219) 15 U/L Delfino F AustinLIPID [id number] 00:00:00* Test Item Value Reference Range Interpretation Comme nts CHOLESTEROL (test code = 2210) 215 MG/DL TRIGLYCERIDES (test code = 2232) 61 MG/DL HDL CHOLESTEROL (test code = 2220) 93 MG/DL CALC LDL CHOL (test code = 2237) 110 MG/DL RISK RATIO LDL/HDL (test cod e = 223) 1.18 RATIO CBC W/AUTO [id number] 00:00:00* Test Item Value Reference Range Interpretation [...] code = 1015) 317 K/UL Delfino Schumacher AustinCOMPREHENSIVE METABOLIC [id number] 00:00:00* Test Item Value Reference Range Interpretation Comme nts GLUCOSE (test code = 2217) 93 MG/DL BUN (test code = 2208) 20 MG/DL CREATININE (test code = 2214) 1.18 MG/DL eGFR AMER. (test cod e = 06866) 61 ML/MIN/1.73 eGFR NON- AMER. (test code = 98959) 52 ML/MIN/1.73 CALC BUN/CREAT (test code = [...] (test code = 2219) 15 U/L LIPID [id number] 00:00:00* Test Item Value Reference Range Interpretation Comme nts CHOLESTEROL (test code = 2210) 215 MG/DL TRIGLYCERIDES (test code = 2232) 61 MG/DL HDL CHOLESTEROL (test code = 2220) 93 MG/DL CALC LDL CHOL (test code = 2237) 110 MG/DL RISK RATIO LDL/HDL (test cod e = 2238) 1.18 RATIO Delfino OrtaCOMPREHENSIVE METABOLIC [id number] 00:00:00* Test Item Value Reference Range Interpretation Comme nts GLUCOSE (test code = 2217) 93 MG/DL BUN (test code = 2208) 20 MG/DL CREATININE (test code = 2214) 1.18 MG/DL eGFR AMER. (test cod e = 80782) 61 ML/MIN/1.73 eGFR NON- AMER. (test code = 76071) 52 ML/MIN/1.73 CALC BUN/CREAT (test code = [...] = 2219) 15 U/L Delfino OrtaCBC W/AUTO [id number] 00:00:00* Test Item Value Reference Range Interpretation [...] code = 1015) 317 K/UL Delfino OrtaLIPID [id number] 00:00:00* Test Item Value Reference Range Interpretation Comme nts CHOLESTEROL (test code = 2210) 215 MG/DL TRIGLYCERIDES (test code = 2232) 61 MG/DL HDL CHOLESTEROL (test code = 2220) 93 MG/DL CALC LDL CHOL (test code = 2237) 110 MG/DL RISK RATIO LDL/HDL (test cod e = 2238) 1.18 RATIO Delfino OrtaCOMPREHENSIVE METABOLIC [id number] 00:00:00* Test Item Value Reference Range Interpretation Comme nts GLUCOSE (test code = 2217) 93 MG/DL BUN (test code = 2208) 20 MG/DL CREATININE (test code = 2214) 1.18 MG/DL eGFR AMER. (test cod e = 83484) 61 ML/MIN/1.73 eGFR NON- AMER. (test code = 20116) 52 ML/MIN/1.73 CALC BUN/CREAT (test code = [...] = 2219) 15 U/L Delfino OrtaCBC W/AUTO [id number] 00:00:00* Test Item Value Reference Range Interpretation [...] code = 1015) 317 K/UL Delfino OrtaLIPID [id number] 00:00:00* Test Item Value Reference Range Interpretation Comme nts CHOLESTEROL (test code = 2210) 215 MG/DL TRIGLYCERIDES (test code = 2232) 61 MG/DL HDL CHOLESTEROL (test code = 2220) 93 MG/DL CALC LDL CHOL (test code = 2237) 110 MG/DL RISK RATIO LDL/HDL (test cod e = 2238) 1.18 RATIO Delfino OrtaCOMPREHENSIVE METABOLIC [id number] 00:00:00* Test Item Value Reference Range Interpretation Comme nts GLUCOSE (test code = 2217) 93 MG/DL BUN (test code = 2208) 20 MG/DL CREATININE (test code = 2214) 1.18 MG/DL eGFR AMER. (test cod e = 10583) 61 ML/MIN/1.73 eGFR NON- AMER. (test code = 04108) 52 ML/MIN/1.73 CALC BUN/CREAT (test code = [...] 2219) 15 U/L Delfino Schumacher YouCBC W/AUTO [id number] 00:00:00* Test Item Value Reference Range Interpretation [...] = 1015) 317 K/UL Delfino Schumacher AustinLIPID [id number] 00:00:00* Test Item Value Reference Range Interpretation Comme nts CHOLESTEROL (test code = 2210) 215 MG/DL TRIGLYCERIDES (test code = 2232) 61 MG/DL HDL CHOLESTEROL (test code = 2220) 93 MG/DL CALC LDL CHOL (test code = 2237) 110 MG/DL RISK RATIO LDL/HDL (test cod e = 2238) 1.18 RATIO Delfino OrtaCOMPREHENSIVE METABOLIC [id number] 00:00:00* Test Item Value Reference Range Interpretation Comme nts GLUCOSE (test code = 2217) 93 MG/DL BUN (test code = 2208) 20 MG/DL CREATININE (test code = 2214) 1.18 MG/DL eGFR AMER. (test cod e = 23190) 61 ML/MIN/1.73 eGFR NON- AMER. (test code = 30985) 52 ML/MIN/1.73 CALC BUN/CREAT (test code = [...] = 2219) 15 U/L Delfino OrtaCBC W/AUTO [id number] 00:00:00* Test Item Value Reference Range Interpretation [...] code = 1015) 317 K/UL Delfino OrtaLIPID [id number] 00:00:00* Test Item Value Reference Range Interpretation Comme nts CHOLESTEROL (test code = 2210) 215 MG/DL TRIGLYCERIDES (test code = 2232) 61 MG/DL HDL CHOLESTEROL (test code = 2220) 93 MG/DL CALC LDL CHOL (test code = 2237) 110 MG/DL RISK RATIO LDL/HDL (test cod e = 2238) 1.18 RATIO Delfino OrtaCOMPREHENSIVE METABOLIC [id number] 00:00:00* Test Item Value Reference Range Interpretation Comme nts GLUCOSE (test code = 2217) 93 MG/DL BUN (test code = 2208) 20 MG/DL CREATININE (test code = 2214) 1.18 MG/DL eGFR AMER. (test cod e = 59504) 61 ML/MIN/1.73 eGFR NON- AMER. (test code = 78166) 52 ML/MIN/1.73 CALC BUN/CREAT (test code = [...] = 2219) 15 U/L Delfino OrtaCBC W/AUTO [id number] 00:00:00* Test Item Value Reference Range Interpretation [...] code = 1015) 317 K/UL Delfino OrtaLIPID [id number] 00:00:00* Test Item Value Reference Range Interpretation Comme nts CHOLESTEROL (test code = 2210) 215 MG/DL TRIGLYCERIDES (test code = 2232) 61 MG/DL HDL CHOLESTEROL (test code = 2220) 93 MG/DL CALC LDL CHOL (test code = 2237) 110 MG/DL RISK RATIO LDL/HDL (test cod e = 2238) 1.18 RATIO Delfino OrtaCOMPREHENSIVE METABOLIC [id number] 00:00:00* Test Item Value Reference Range Interpretation Comme nts GLUCOSE (test code = 2217) 93 MG/DL BUN (test code = 2208) 20 MG/DL CREATININE (test code = 2214) 1.18 MG/DL eGFR AMER. (test cod e = 82387) 61 ML/MIN/1.73 eGFR NON- AMER. (test code = 23360) 52 ML/MIN/1.73 CALC BUN/CREAT (test code = [...] (test code = 2219) 15 U[facility]L [facility] [id number] 00:00:00* Test Item Value Reference Range Interpretation [...] (test code = 1015) 317 K/UL Delfino OrtaCBC W/AUTO [id number] 00:00:00* Test Item Value Reference Range Interpretation [...] code = 1015) 317 K/UL Delfino OrtaLIPID [id number] 00:00:00* Test Item Value Reference Range Interpretation Comme nts CHOLESTEROL (test code = 2210) 215 MG/DL TRIGLYCERIDES (test code = 2232) 61 MG/DL HDL CHOLESTEROL (test code = 2220) 93 MG/DL CALC LDL CHOL (test code = 2237) 110 MG/DL RISK RATIO LDL/HDL (test cod e = 2238) 1.18 RATIO Delfino OrtaCOMPREHENSIVE METABOLIC [id number] 00:00:00* Test Item Value Reference Range Interpretation Comme nts GLUCOSE (test code = 2217) 93 MG/DL BUN (test code = 2208) 20 MG/DL CREATININE (test code = 2214) 1.18 MG/DL eGFR AMER. (test cod e = 85378) 61 ML/MIN/1.73 eGFR NON- AMER. (test code = 63846) 52 ML/MIN/1.73 CALC BUN/CREAT (test code = [...] = 2219) 15 U/L Delfino OrtaCBC W/AUTO [id number] 00:00:00* Test Item Value Reference Range Interpretation [...] code = 1015) 317 K/UL Delfino OrtaLIPID [id number] 00:00:00* Test Item Value Reference Range Interpretation Comme nts CHOLESTEROL (test code = 2210) 215 MG/DL TRIGLYCERIDES (test code = 2232) 61 MG/DL HDL CHOLESTEROL (test code = 2220) 93 MG/DL CALC LDL CHOL (test code = 2237) 110 MG/DL RISK RATIO LDL/HDL (test cod e = 2238) 1.18 RATIO Delfino Schumacher AustinLIPID [id number] 00:00:00* Test Item Value Reference Range Interpretation Comme nts CHOLESTEROL (test code = 2210) 215 MG/DL TRIGLYCERIDES (test code = 2232) 61 MG/DL HDL CHOLESTEROL (test code = 2220) 93 MG/DL CALC LDL CHOL (test code = 2237) 110 MG/DL RISK RATIO LDL/HDL (test cod e = 2238) 1.18 RATIO Delfino OrtaCOMPREHENSIVE METABOLIC [id number] 00:00:00* Test Item Value Reference Range Interpretation Comme nts GLUCOSE (test code = 2217) 93 MG/DL BUN (test code = 2208) 20 MG/DL CREATININE (test code = 2214) 1.18 MG/DL eGFR AMER. (test cod e = 95671) 61 ML/MIN/1.73 eGFR NON- AMER. (test code = 91559) 52 ML/MIN/1.73 CALC BUN/CREAT (test code = [...] = 2219) 15 U/L Delfino OrtaCBC W/AUTO [id number] 00:00:00* Test Item Value Reference Range Interpretation [...] (test code = 1015) 317 K/UL Delfino SarmientoLTURE, URINE [ADDED]2017-08-24 00:00:00* Test Item Value Reference Range Interpretation Comme nts CULTURE, URINE (test code = 39350) SPECIMEN NUMBER: [id number] Delfino OrtaCULTURE, URINE [ADDED]2017-08-24 00:00:00* Test Item Value Reference Range Interpretation Comme nts CULTURE, URINE (test code = 59967) SPECIMEN NUMBER: [id number] Delfino OrtaCULTURE, URINE [ADDED]2017-08-24 00:00:00* Test Item Value Reference Range Interpretation Comme nts CULTURE, URINE (test code = 16385) SPECIMEN NUMBER: [id number] Delfino OrtaCULTURE, URINE [ADDED]2017-08-24 00:00:00* Test Item Value Reference Range Interpretation Comme nts CULTURE, URINE (test code = 57497) SPECIMEN NUMBER: [id number] Delfino OrtaCULTURE, URINE [ADDED]2017-08-24 00:00:00* Test Item Value Reference Range Interpretation Comme nts CULTURE, URINE (test code = 04493) SPECIMEN NUMBER: [id number] Delfino OrtaCULTURE, URINE [ADDED]2017-08-24 00:00:00* Test Item Value Reference Range Interpretation Comme nts CULTURE, URINE (test code = 66571) SPECIMEN NUMBER: [id number] Delfino OrtaCULTURE, URINE [ADDED]2017-08-24 00:00:00* Test Item Value Reference Range Interpretation Comme nts CULTURE, URINE (test code = 06407) SPECIMEN NUMBER: [id number] Delfino OrtaCULTURE, URINE [ADDED]2017-08-24 00:00:00* Test Item Value Reference Range Interpretation Comme nts CULTURE, URINE (test code = 99554) SPECIMEN NUMBER: [id number] Delfino OrtaCULTURE, URINE [ADDED]2017-08-24 00:00:00* Test Item Value Reference Range Interpretation Comme nts CULTURE, URINE (test code = 46959) SPECIMEN NUMBER: [id number] CULTURE, URINE [ADDED]2017-08-24 00:00:00* Test Item Value Reference Range Interpretation Comme nts CULTURE, URINE (test code = 21181) SPECIMEN NUMBER: [id number] Delfino OrtaCULTURE, URINE [ADDED]2017-08-24 00:00:00* Test Item Value Reference Range Interpretation Comme nts CULTURE, URINE (test code = 43774) SPECIMEN NUMBER: [id number] CULTURE, URINE [ADDED]2017-08-24 00:00:00* Test Item Value Reference Range Interpretation Comme nts CULTURE, URINE (test code = 54367) SPECIMEN NUMBER: [id number] Delfino Schumacher AustinCULTURE, URINE [ADDED]2017-08-24 00:00:00* Test Item Value Reference Range Interpretation Comme nts CULTURE, URINE (test code = 63735) SPECIMEN NUMBER: [id number] CULTURE, URINE [ADDED]2017-08-24 00:00:00* Test Item Value Reference Range Interpretation Comme nts CULTURE, URINE (test code = 86655) SPECIMEN NUMBER: [id number] Delfino OrtaCULTURE, URINE [ADDED]2017-08-24 00:00:00* Test Item Value Reference Range Interpretation Comme nts CULTURE, URINE (test code = 31333) SPECIMEN NUMBER: [id number] CULTURE, URINE [ADDED]2017-08-24 00:00:00* Test Item Value Reference Range Interpretation Comme nts CULTURE, URINE (test code = 11610) SPECIMEN NUMBER: [id number] Delfino OrtaCULTURE, URINE [ADDED]2017-08-24 00:00:00* Test Item Value Reference Range Interpretation Comme nts CULTURE, URINE (test code = 55129) SPECIMEN NUMBER: [id number] Delfino Schumacher AustinCULTURE, URINE [ADDED]2017-08-24 00:00:00* Test Item Value Reference Range Interpretation Comme nts CULTURE, URINE (test code = 86589) SPECIMEN NUMBER: [id number] Delfino Schumacher AustinCULTURE, URINE [ADDED]2017-08-24 00:00:00* Test Item Value Reference Range Interpretation Comme nts CULTURE, URINE (test code = 23684) SPECIMEN NUMBER: [id number] Delfino OrtaCULTURE, URINE [ADDED]2017-08-24 00:00:00* Test Item Value Reference Range Interpretation Comme nts CULTURE, URINE (test code = 15498) SPECIMEN NUMBER: [id number] Delfino OrtaCULTURE, URINE [ADDED]2017-08-24 00:00:00* Test Item Value Reference Range Interpretation Comme nts CULTURE, URINE (test code = 82980) SPECIMEN NUMBER: [id number] Delfino OrtaCULTURE, URINE [ADDED]2017-08-24 00:00:00* Test Item Value Reference Range Interpretation Comme nts CULTURE, URINE (test code = 20712) SPECIMEN NUMBER: [id number] Delfino OrtaCULTURE, URINE [ADDED]2017-08-24 00:00:00* Test Item Value Reference Range Interpretation Comme nts CULTURE, URINE (test code = 78656) SPECIMEN NUMBER: [id number] Delfino OrtaCOMPREHENSIVE METABOLIC [id number] 00:00:00* Test Item Value Reference Range Interpretation Comme nts GLUCOSE (test code = 2217) 92 MG/DL BUN (test code = 2208) 23 MG/DL CREATININE (test code = 2214) 1.27 MG/DL eGFR AMER. (test cod e = 07797) 55 ML/MIN/1.73 eGFR NON- AMER. (test code = 62987) 48 ML/MIN/1.73 CALC BUN/CREAT (test code = [...] 2219) 23 U/L Delfino OrtaHEPATITIS C REFLEX [id number] 00:00:00* Test Item Value Reference Range Interpretation Comme nts HEPATITIS C ANTIBODY (test c ode = 4675) NON-REACTIVE Delfino OrtaHEPATITIS C REFLEX [id number] 00:00:00* Test Item Value Reference Range Interpretation Comme nts HEPATITIS C ANTIBODY (test c ode = 4675) NON-REACTIVE Delfino OrtaCBC W/AUTO [id number] 00:00:00* Test Item Value Reference Range Interpretation [...] code = 1016) (NOTE) Delfino OrtaCOMPREHENSIVE METABOLIC [id number] 00:00:00* Test Item Value Reference Range Interpretation Comme nts GLUCOSE (test code = 2217) 92 MG/DL BUN (test code = 2208) 23 MG/DL CREATININE (test code = 2214) 1.27 MG/DL eGFR AMER. (test cod e = 18112) 55 ML/MIN/1.73 eGFR NON- AMER. (test code = 78569) 48 ML/MIN/1.73 CALC BUN/CREAT (test code = [...] 2219) 23 U/L Delfino OrtaHEPATITIS C REFLEX [id number] 00:00:00* Test Item Value Reference Range Interpretation Comme nts HEPATITIS C ANTIBODY (test c ode = 4675) NON-REACTIVE Delfino OrtaCBC W/AUTO [id number] 00:00:00* Test Item Value Reference Range Interpretation [...] code = 1016) (NOTE) Delfino OrtaCOMPREHENSIVE METABOLIC [id number] 00:00:00* Test Item Value Reference Range Interpretation Comme nts GLUCOSE (test code = 2217) 92 MG/DL BUN (test code = 2208) 23 MG/DL CREATININE (test code = 2214) 1.27 MG/DL eGFR AMER. (test cod e = 69668) 55 ML/MIN/1.73 eGFR NON- AMER. (test code = 58256) 48 ML/MIN/1.73 CALC BUN/CREAT (test code = [...] 2219) 23 U/L Delfino OrtaHEPATITIS C REFLEX [id number] 00:00:00* Test Item Value Reference Range Interpretation Comme nts HEPATITIS C ANTIBODY (test c ode = 4675) NON-REACTIVE Delfino OrtaCBC W/AUTO [id number] 00:00:00* Test Item Value Reference Range Interpretation [...] code = 1016) (NOTE) Delfino OrtaCOMPREHENSIVE METABOLIC [id number] 00:00:00* Test Item Value Reference Range Interpretation Comme nts GLUCOSE (test code = 2217) 92 MG/DL BUN (test code = 2208) 23 MG/DL CREATININE (test code = 2214) 1.27 MG/DL eGFR AMER. (test cod e = 84776) 55 ML/MIN/1.73 eGFR NON- AMER. (test code = 51575) 48 ML/MIN/1.73 CALC BUN/CREAT (test code = [...] 2219) 23 U/L Delfino OrtaHEPATITIS C REFLEX [id number] 00:00:00* Test Item Value Reference Range Interpretation Comme nts HEPATITIS C ANTIBODY (test c ode = 4675) NON-REACTIVE Delfino Endy YouCBC W/AUTO [id number] 00:00:00* Test Item Value Reference Range Interpretation [...] code = 1016) (NOTE) Delfino OrtaCOMPREHENSIVE METABOLIC [id number] 00:00:00* Test Item Value Reference Range Interpretation Comme nts GLUCOSE (test code = 2217) 92 MG/DL BUN (test code = 2208) 23 MG/DL CREATININE (test code = 2214) 1.27 MG/DL eGFR AMER. (test cod e = 01928) 55 ML/MIN/1.73 eGFR NON- AMER. (test code = 63050) 48 ML/MIN/1.73 CALC BUN/CREAT (test code = [...] 23 U/L Delfino Schumacher YouHEPATITIS C REFLEX [id number] 00:00:00* Test Item Value Reference Range Interpretation Comme nts HEPATITIS C ANTIBODY (test c ode = 4675) NON-REACTIVE Delfino Schumacher YouCBC W/AUTO [id number] 00:00:00* Test Item Value Reference Range Interpretation [...] code = 1016) (NOTE) Delfino OrtaCOMPREHENSIVE METABOLIC [id number] 00:00:00* Test Item Value Reference Range Interpretation Comme nts GLUCOSE (test code = 2217) 92 MG/DL BUN (test code = 2208) 23 MG/DL CREATININE (test code = 2214) 1.27 MG/DL eGFR AMER. (test cod e = 89781) 55 ML/MIN/1.73 eGFR NON- AMER. (test code = 10933) 48 ML/MIN/1.73 CALC BUN/CREAT (test code = [...] 2219) 23 U/L Delfino OrtaHEPATITIS C REFLEX [id number] 00:00:00* Test Item Value Reference Range Interpretation Comme nts HEPATITIS C ANTIBODY (test c ode = 4675) NON-REACTIVE Delfino OrtaCBC W/AUTO [id number] 00:00:00* Test Item Value Reference Range Interpretation [...] code = 1016) (NOTE) Delfino OrtaCOMPREHENSIVE METABOLIC [id number] 00:00:00* Test Item Value Reference Range Interpretation Comme nts GLUCOSE (test code = 2217) 92 MG/DL BUN (test code = 2208) 23 MG/DL CREATININE (test code = 2214) 1.27 MG/DL eGFR AMER. (test cod e = 70583) 55 ML/MIN/1.73 eGFR NON- AMER. (test code = 12001) 48 ML/MIN/1.73 CALC BUN/CREAT (test code = [...] 2219) 23 U/L Delfino OrtaHEPATITIS C REFLEX [id number] 00:00:00* Test Item Value Reference Range Interpretation Comme nts HEPATITIS C ANTIBODY (test c ode = 4675) NON-REACTIVE Delfino Schumacher YouCBC W/AUTO [id number] 00:00:00* Test Item Value Reference Range Interpretation [...] (test code = 1016) (NOTE) CBC W/AUTO [id number] 00:00:00* Test Item Value Reference Range Interpretation [...] code = 1016) (NOTE) Delfino OrtaCOMPREHENSIVE METABOLIC [id number] 00:00:00* Test Item Value Reference Range Interpretation Comme nts GLUCOSE (test code = 2217) 92 MG/DL BUN (test code = 2208) 23 MG/DL CREATININE (test code = 2214) 1.27 MG/DL eGFR AMER. (test cod e = 86478) 55 ML/MIN/1.73 eGFR NON- AMER. (test code = 67227) 48 ML/MIN/1.73 CALC BUN/CREAT (test code = [...] = 2219) 23 U/L HEPATITIS C REFLEX [id number] 00:00:00* Test Item Value Reference Range Interpretation Comme nts HEPATITIS C ANTIBODY (test c ode = 4675) NON-REACTIVE COMPREHENSIVE METABOLIC [id number] 00:00:00* Test Item Value Reference Range Interpretation Comme nts GLUCOSE (test code = 2217) 92 MG/DL BUN (test code = 2208) 23 MG/DL CREATININE (test code = 2214) 1.27 MG/DL eGFR AMER. (test cod e = 03772) 55 ML/MIN/1.73 eGFR NON- AMER. (test code = 28130) 48 ML/MIN/1.73 CALC BUN/CREAT (test code = [...] (test code = 2219) 23 U/L Delfino CarvalhoPATITIS C REFLEX [id number] 00:00:00* Test Item Value Reference Range Interpretation Comme nts HEPATITIS C ANTIBODY (test c ode = 4675) NON-REACTIVE Delfino OrtaCBC W/AUTO [id number] 00:00:00* Test Item Value Reference Range Interpretation [...] (test code = 1016) (NOTE) CBC W/AUTO [id number] 00:00:00* Test Item Value Reference Range Interpretation [...] code = 1016) (NOTE) Delfino OrtaCOMPREHENSIVE METABOLIC [id number] 00:00:00* Test Item Value Reference Range Interpretation Comme nts GLUCOSE (test code = 2217) 92 MG/DL BUN (test code = 2208) 23 MG/DL CREATININE (test code = 2214) 1.27 MG/DL eGFR AMER. (test cod e = 62453) 55 ML/MIN/1.73 eGFR NON- AMER. (test code = 54068) 48 ML/MIN/1.73 CALC BUN/CREAT (test code = [...] code = 2219) 23 U/L COMPREHENSIVE METABOLIC [id number] 00:00:00* Test Item Value Reference Range Interpretation Comme nts GLUCOSE (test code = 2217) 92 MG/DL BUN (test code = 2208) 23 MG/DL CREATININE (test code = 2214) 1.27 MG/DL eGFR AMER. (test cod e = 30430) 55 ML/MIN/1.73 eGFR NON- AMER. (test code = 75921) 48 ML/MIN/1.73 CALC BUN/CREAT (test code = [...] 2219) 23 U/L Delfino OrtaHEPATITIS C REFLEX [id number] 00:00:00* Test Item Value Reference Range Interpretation Comme nts HEPATITIS C ANTIBODY (test c ode = 4675) NON-REACTIVE HEPATITIS C REFLEX [id number] 00:00:00* Test Item Value Reference Range Interpretation Comme nts HEPATITIS C ANTIBODY (test c ode = 4675) NON-REACTIVE Delfino OrtaCBC W/AUTO [id number] 00:00:00* Test Item Value Reference Range Interpretation [...] (test code = 1016) (NOTE) CBC W/AUTO [id number] 00:00:00* Test Item Value Reference Range Interpretation [...] = 1016) (NOTE) Delfino F YouCOMPREHENSIVE METABOLIC [id number] 00:00:00* Test Item Value Reference Range Interpretation Comme nts GLUCOSE (test code = 2217) 92 MG/DL BUN (test code = 2208) 23 MG/DL CREATININE (test code = 2214) 1.27 MG/DL eGFR AMER. (test cod e = 91562) 55 ML/MIN/1.73 eGFR NON- AMER. (test code = 63595) 48 ML/MIN/1.73 CALC BUN/CREAT (test code = [...] code = 2219) 23 U/L COMPREHENSIVE METABOLIC [id number] 00:00:00* Test Item Value Reference Range Interpretation Comme nts GLUCOSE (test code = 2217) 92 MG/DL BUN (test code = 2208) 23 MG/DL CREATININE (test code = 2214) 1.27 MG/DL eGFR AMER. (test cod e = 59434) 55 ML/MIN/1.73 eGFR NON- AMER. (test code = 36468) 48 ML/MIN/1.73 CALC BUN/CREAT (test code = [...] code = 2219) 23 U/L Delfino Schumacher AustinHEPATITIS C REFLEX [id number] 00:00:00* Test Item Value Reference Range Interpretation Comme nts HEPATITIS C ANTIBODY (test c ode = 4675) NON-REACTIVE CBC W/AUTO [id number] 00:00:00* Test Item Value Reference Range Interpretation [...] K/UL COMMENTS (test code = 1016) (NOTE) HEPATITIS C REFLEX [id number] 00:00:00* Test Item Value Reference Range Interpretation Comme nts HEPATITIS C ANTIBODY (test c ode = 4675) NON-REACTIVE Delfino OrtaCOMPREHENSIVE METABOLIC [id number] 00:00:00* Test Item Value Reference Range Interpretation Comme nts GLUCOSE (test code = 2217) 92 MG/DL BUN (test code = 2208) 23 MG/DL CREATININE (test code = 2214) 1.27 MG/DL eGFR AMER. (test cod e = 45144) 55 ML/MIN/1.73 eGFR NON- AMER. (test code = 16524) 48 ML/MIN/1.73 CALC BUN/CREAT (test code = [...] ALT (test code = 2219) 23 U/L CBC W/AUTO [id number] 00:00:00* Test Item Value Reference Range Interpretation [...] COMMENTS (test code = 1016) (NOTE) Delfino CastilloTIS C REFLEX [id number] 00:00:00* Test Item Value Reference Range Interpretation Comme nts HEPATITIS C ANTIBODY (test c ode = 4675) NON-REACTIVE COMPREHENSIVE METABOLIC [id number] 00:00:00* Test Item Value Reference Range Interpretation Comme nts GLUCOSE (test code = 2217) 92 MG/DL BUN (test code = 2208) 23 MG/DL CREATININE (test code = 2214) 1.27 MG/DL eGFR AMER. (test cod e = 91441) 55 ML/MIN/1.73 eGFR NON- AMER. (test code = 88272) 48 ML/MIN/1.73 CALC BUN/CREAT (test code = [...] (test code = 2219) 23 U/L Delfino CastilloTIS C REFLEX [id number] 00:00:00* Test Item Value Reference Range Interpretation Comme nts HEPATITIS C ANTIBODY (test c ode = 4675) NON-REACTIVE Delfino OrtaCBC W/AUTO [id number] 00:00:00* Test Item Value Reference Range Interpretation [...] code = 1016) (NOTE) Delfino OrtaCOMPREHENSIVE METABOLIC [id number] 00:00:00* Test Item Value Reference Range Interpretation Comme nts GLUCOSE (test code = 2217) 92 MG/DL BUN (test code = 2208) 23 MG/DL CREATININE (test code = 2214) 1.27 MG/DL eGFR AMER. (test cod e = 58967) 55 ML/MIN/1.73 eGFR NON- AMER. (test code = 49029) 48 ML/MIN/1.73 CALC BUN/CREAT (test code = [...] 2219) 23 U/L Delfino OrtaHEPATITIS C REFLEX [id number] 00:00:00* Test Item Value Reference Range Interpretation Comme nts HEPATITIS C ANTIBODY (test c ode = 4666) NON-REACTIVE Delfino OrtaCBC W/AUTO [id number] 00:00:00* Test Item Value Reference Range Interpretation [...] code = 1016) (NOTE) Delfino OrtaCOMPREHENSIVE METABOLIC [id number] 00:00:00* Test Item Value Reference Range Interpretation Comme nts GLUCOSE (test code = 2217) 92 MG/DL BUN (test code = 2208) 23 MG/DL CREATININE (test code = 2214) 1.27 MG/DL eGFR AMER. (test cod e = 70034) 55 ML/MIN/1.73 eGFR NON- AMER. (test code = 99310) 48 ML/MIN/1.73 CALC BUN/CREAT (test code = [...] 2219) 23 U/L Delfino OrtaHEPATITIS C REFLEX [id number] 00:00:00* Test Item Value Reference Range Interpretation Comme nts HEPATITIS C ANTIBODY (test c ode = 4675) NON-REACTIVE Delfino OrtaCBC W/AUTO [id number] 00:00:00* Test Item Value Reference Range Interpretation [...] code = 1016) (NOTE) Delfino OrtaCOMPREHENSIVE METABOLIC [id number] 00:00:00* Test Item Value Reference Range Interpretation Comme nts GLUCOSE (test code = 2217) 92 MG/DL BUN (test code = 2208) 23 MG/DL CREATININE (test code = 2214) 1.27 MG/DL eGFR AMER. (test cod e = 35533) 55 ML/MIN/1.73 eGFR NON- AMER. (test code = 39082) 48 ML/MIN/1.73 CALC BUN/CREAT (test code = [...] (test code = 2219) 23 U/L Delfino CarvalhoPATITIS C REFLEX [id number] 00:00:00* Test Item Value Reference Range Interpretation Comme nts HEPATITIS C ANTIBODY (test c ode = 4675) NON-REACTIVE Delfino OrtaC W/AUTO [id number] 00:00:00* Test Item Value Reference Range Interpretation [...] code = 1016) (NOTE) Delfino OrtaC W/AUTO [id number] 00:00:00* Test Item Value Reference Range Interpretation [...] code = 1016) (NOTE) Delfino OrtaCOMPREHENSIVE METABOLIC [id number] 00:00:00* Test Item Value Reference Range Interpretation Comme nts GLUCOSE (test code = 2217) 92 MG/DL BUN (test code = 2208) 23 MG/DL CREATININE (test code = 2214) 1.27 MG/DL eGFR AMER. (test cod e = 08785) 55 ML/MIN/1.73 eGFR NON- AMER. (test code = 91457) 48 ML/MIN/1.73 CALC BUN/CREAT (test code = [...] 2219) 23 U/L Delfino OrtaHEPATITIS C REFLEX [id number] 00:00:00* Test Item Value Reference Range Interpretation Comme nts HEPATITIS C ANTIBODY (test c ode = 4675) NON-REACTIVE Delfino OrtaCBC W/AUTO [id number] 00:00:00* Test Item Value Reference Range Interpretation [...] code = 1016) (NOTE) Delfino OrtaCOMPREHENSIVE METABOLIC [id number] 00:00:00* Test Item Value Reference Range Interpretation Comme nts GLUCOSE (test code = 2217) 92 MG/DL BUN (test code = 2208) 23 MG/DL CREATININE (test code = 2214) 1.27 MG/DL eGFR AMER. (test cod e = 72329) 55 ML/MIN/1.73 eGFR NON- AMER. (test code = 30545) 48 ML/MIN/1.73 CALC BUN/CREAT (test code = [...] 2219) 23 U/L Delfino OrtaHEPATITIS C REFLEX [id number] 00:00:00* Test Item Value Reference Range Interpretation Comme nts HEPATITIS C ANTIBODY (test c ode = 4675) NON-REACTIVE Delfino OrtaCBC W/AUTO [id number] 00:00:00* Test Item Value Reference Range Interpretation [...] code = 1016) (NOTE) Delfino OrtaCOMPREHENSIVE METABOLIC [id number] 00:00:00* Test Item Value Reference Range Interpretation Comme nts GLUCOSE (test code = 2217) 92 MG/DL BUN (test code = 2208) 23 MG/DL CREATININE (test code = 2214) 1.27 MG/DL eGFR AMER. (test cod e = 59613) 55 ML/MIN/1.73 eGFR NON- AMER. (test code = 89129) 48 ML/MIN/1.73 CALC BUN/CREAT (test code = [...] 2219) 23 U/L Delfino OrtaHEPATITIS C REFLEX [id number] 00:00:00* Test Item Value Reference Range Interpretation Comme nts HEPATITIS C ANTIBODY (test c ode = 4675) NON-REACTIVE Delfino OrtaCOMPREHENSIVE METABOLIC [id number] 00:00:00* Test Item Value Reference Range Interpretation Comme nts GLUCOSE (test code = 2217) 92 MG/DL BUN (test code = 2208) 23 MG/DL CREATININE (test code = 2214) 1.27 MG/DL eGFR AMER. (test cod e = 64648) 55 ML/MIN/1.73 eGFR NON- AMER. (test code = 04731) 48 ML/MIN/1.73 CALC BUN/CREAT (test code = [...] = 2219) 23 U/L Delfino OrtaCBC W/AUTO [id number] 00:00:00* Test Item Value Reference Range Interpretation [...] = 1016) (NOTE) Delfino Schumacher YouCOMPREHENSIVE METABOLIC [id number] 00:00:00* Test Item Value Reference Range Interpretation Comme nts GLUCOSE (test code = 2217) 92 MG/DL BUN (test code = 2208) 23 MG/DL CREATININE (test code = 2214) 1.27 MG/DL eGFR AMER. (test cod e = 19343) 55 ML/MIN/1.73 eGFR NON- AMER. (test code = 74697) 48 ML/MIN/1.73 CALC BUN/CREAT (test code = [...] 2219) 23 U/L Delfino OrtaHEPATITIS C REFLEX [id number] 00:00:00* Test Item Value Reference Range Interpretation Comme nts HEPATITIS C ANTIBODY (test c ode = 4675) NON-REACTIVE Delfino Schumacher YouCBC W/AUTO [id number] 00:00:00* Test Item Value Reference Range Interpretation [...] code = 1016) (NOTE) Delfino OrtaCOMPREHENSIVE METABOLIC [id number] 00:00:00* Test Item Value Reference Range Interpretation Comme nts GLUCOSE (test code = 2217) 88 MG/DL BUN (test code = 2208) 24 MG/DL CREATININE (test code = 2214) 0.94 MG/DL eGFR AMER. (test cod e = 57801) 80 ML/MIN/1.73 eGFR NON- AMER. (test code = 13967) 69 ML/MIN/1.73 CALC BUN/CREAT (test code = [...] code = 2219) 10 U/L Delfino OrtaLIPID [id number] 00:00:00* Test Item Value Reference Range Interpretation Comme nts CHOLESTEROL (test code = 2210) 211 MG/DL TRIGLYCERIDES (test code = 2232) 52 MG/DL HDL CHOLESTEROL (test code = 2220) 90 MG/DL CALC LDL CHOL (test code = 2237) 111 MG/DL RISK RATIO LDL/HDL (test cod e = 2238) 1.23 RATIO Delfino OrtaCBC W/AUTO [id number] 00:00:00* Test Item Value Reference Range Interpretation [...] code = 1016) (NOTE) Delfino OrtaCOMPREHENSIVE METABOLIC [id number] 00:00:00* Test Item Value Reference Range Interpretation Comme nts GLUCOSE (test code = 2217) 88 MG/DL BUN (test code = 2208) 24 MG/DL CREATININE (test code = 2214) 0.94 MG/DL eGFR AMER. (test cod e = 26659) 80 ML/MIN/1.73 eGFR NON- AMER. (test code = 23996) 69 ML/MIN/1.73 CALC BUN/CREAT (test code = [...] code = 2219) 10 U/L Delfino OrtaLIPID [id number] 00:00:00* Test Item Value Reference Range Interpretation Comme nts CHOLESTEROL (test code = 2210) 211 MG/DL TRIGLYCERIDES (test code = 2232) 52 MG/DL HDL CHOLESTEROL (test code = 2220) 90 MG/DL CALC LDL CHOL (test code = 2237) 111 MG/DL RISK RATIO LDL/HDL (test cod e = 2238) 1.23 RATIO Delfino Schumacher YouCBC W/AUTO [id number] 00:00:00* Test Item Value Reference Range Interpretation [...] = 1016) (NOTE) Delfino Schumacher YouCOMPREHENSIVE METABOLIC [id number] 00:00:00* Test Item Value Reference Range Interpretation Comme nts GLUCOSE (test code = 2217) 88 MG/DL BUN (test code = 2208) 24 MG/DL CREATININE (test code = 2214) 0.94 MG/DL eGFR AMER. (test cod e = 21560) 80 ML/MIN/1.73 eGFR NON- AMER. (test code = 31752) 69 ML/MIN/1.73 CALC BUN/CREAT (test code = [...] code = 2219) 10 U/L Delfino OrtaLIPID [id number] 00:00:00* Test Item Value Reference Range Interpretation Comme nts CHOLESTEROL (test code = 2210) 211 MG/DL TRIGLYCERIDES (test code = 2232) 52 MG/DL HDL CHOLESTEROL (test code = 2220) 90 MG/DL CALC LDL CHOL (test code = 2237) 111 MG/DL RISK RATIO LDL/HDL (test cod e = 2238) 1.23 RATIO Delfino OrtaCBC W/AUTO [id number] 00:00:00* Test Item Value Reference Range Interpretation [...] code = 1016) (NOTE) Delfino OrtaCOMPREHENSIVE METABOLIC [id number] 00:00:00* Test Item Value Reference Range Interpretation Comme nts GLUCOSE (test code = 2217) 88 MG/DL BUN (test code = 2208) 24 MG/DL CREATININE (test code = 2214) 0.94 MG/DL eGFR AMER. (test cod e = 40968) 80 ML/MIN/1.73 eGFR NON- AMER. (test code = 52761) 69 ML/MIN/1.73 CALC BUN/CREAT (test code = [...] code = 2219) 10 U/L Delfino OrtaLIPID [id number] 00:00:00* Test Item Value Reference Range Interpretation Comme nts CHOLESTEROL (test code = 2210) 211 MG/DL TRIGLYCERIDES (test code = 2232) 52 MG/DL HDL CHOLESTEROL (test code = 2220) 90 MG/DL CALC LDL CHOL (test code = 2237) 111 MG/DL RISK RATIO LDL/HDL (test cod e = 2238) 1.23 RATIO Delfino OrtaCBC W/AUTO [id number] 00:00:00* Test Item Value Reference Range Interpretation [...] = 1016) (NOTE) Delfino F YouCOMPREHENSIVE METABOLIC [id number] 00:00:00* Test Item Value Reference Range Interpretation Comme nts GLUCOSE (test code = 2217) 88 MG/DL BUN (test code = 2208) 24 MG/DL CREATININE (test code = 2214) 0.94 MG/DL eGFR AMER. (test cod e = 72530) 80 ML/MIN/1.73 eGFR NON- AMER. (test code = 83653) 69 ML/MIN/1.73 CALC BUN/CREAT (test code = [...] code = 2219) 10 U/L Delfino Schumacher YouLIPID [id number] 00:00:00* Test Item Value Reference Range Interpretation Comme nts CHOLESTEROL (test code = 2210) 211 MG/DL TRIGLYCERIDES (test code = 2232) 52 MG/DL HDL CHOLESTEROL (test code = 2220) 90 MG/DL CALC LDL CHOL (test code = 2237) 111 MG/DL RISK RATIO LDL/HDL (test cod e = 2238) 1.23 RATIO Delfino OrtaCBC W/AUTO [id number] 00:00:00* Test Item Value Reference Range Interpretation [...] = 1016) (NOTE) Delfino Schumacher YouCOMPREHENSIVE METABOLIC [id number] 00:00:00* Test Item Value Reference Range Interpretation Comme nts GLUCOSE (test code = 2217) 88 MG/DL BUN (test code = 2208) 24 MG/DL CREATININE (test code = 2214) 0.94 MG/DL eGFR AMER. (test cod e = 99935) 80 ML/MIN/1.73 eGFR NON- AMER. (test code = 25468) 69 ML/MIN/1.73 CALC BUN/CREAT (test code = [...] code = 2219) 10 U/L Delfino OrtaLIPID [id number] 00:00:00* Test Item Value Reference Range Interpretation Comme nts CHOLESTEROL (test code = 2210) 211 MG/DL TRIGLYCERIDES (test code = 2232) 52 MG/DL HDL CHOLESTEROL (test code = 2220) 90 MG/DL CALC LDL CHOL (test code = 2237) 111 MG/DL RISK RATIO LDL/HDL (test cod e = 2238) 1.23 RATIO Delfino OrtaCBC W/AUTO [id number] 00:00:00* Test Item Value Reference Range Interpretation [...] code = 1016) (NOTE) Delfino OrtaCOMPREHENSIVE METABOLIC [id number] 00:00:00* Test Item Value Reference Range Interpretation Comme nts GLUCOSE (test code = 2217) 88 MG/DL BUN (test code = 2208) 24 MG/DL CREATININE (test code = 2214) 0.94 MG/DL eGFR AMER. (test cod e = 49047) 80 ML/MIN/1.73 eGFR NON- AMER. (test code = 60177) 69 ML/MIN/1.73 CALC BUN/CREAT (test code = [...] code = 2219) 10 U/L Delfino Schumacher WalesLIPID [id number] 00:00:00* Test Item Value Reference Range Interpretation Comme nts CHOLESTEROL (test code = 2210) 211 MG/DL TRIGLYCERIDES (test code = 2232) 52 MG/DL HDL CHOLESTEROL (test code = 2220) 90 MG/DL CALC LDL CHOL (test code = 2237) 111 MG/DL RISK RATIO LDL/HDL (test cod e = 2238) 1.23 RATIO Delfino OrtaCBC W/AUTO [id number] 00:00:00* Test Item Value Reference Range Interpretation [...] (test code = 1016) (NOTE) CBC W/AUTO [id number] 00:00:00* Test Item Value Reference Range Interpretation [...] code = 1016) (NOTE) Delfino OrtaCOMPREHENSIVE METABOLIC [id number] 00:00:00* Test Item Value Reference Range Interpretation Comme nts GLUCOSE (test code = 2217) 88 MG/DL BUN (test code = 2208) 24 MG/DL CREATININE (test code = 2214) 0.94 MG/DL eGFR AMER. (test cod e = 60827) 80 ML/MIN/1.73 eGFR NON- AMER. (test code = 43830) 69 ML/MIN/1.73 CALC BUN/CREAT (test code = [...] code = 2219) 10 U/L COMPREHENSIVE METABOLIC [id number] 00:00:00* Test Item Value Reference Range Interpretation Comme nts GLUCOSE (test code = 2217) 88 MG/DL BUN (test code = 2208) 24 MG/DL CREATININE (test code = 2214) 0.94 MG/DL eGFR AMER. (test cod e = 84973) 80 ML/MIN/1.73 eGFR NON- AMER. (test code = 98845) 69 ML/MIN/1.73 CALC BUN/CREAT (test code = [...] (test code = 2219) 10 U/L Delfino F AustinLIPID [id number] 00:00:00* Test Item Value Reference Range Interpretation Comme nts CHOLESTEROL (test code = 2210) 211 MG/DL TRIGLYCERIDES (test code = 2232) 52 MG/DL HDL CHOLESTEROL (test code = 2220) 90 MG/DL CALC LDL CHOL (test code = 2237) 111 MG/DL RISK RATIO LDL/HDL (test cod e = 2238) 1.23 RATIO LIPID [id number] 00:00:00* Test Item Value Reference Range Interpretation Comme nts CHOLESTEROL (test code = 2210) 211 MG/DL TRIGLYCERIDES (test code = 2232) 52 MG/DL HDL CHOLESTEROL (test code = 2220) 90 MG/DL CALC LDL CHOL (test code = 2237) 111 MG/DL RISK RATIO LDL/HDL (test cod e = 2238) 1.23 RATIO Delfino OrtaCBC W/AUTO [id number] 00:00:00* Test Item Value Reference Range Interpretation [...] (test code = 1016) (NOTE) CBC W/AUTO [id number] 00:00:00* Test Item Value Reference Range Interpretation [...] code = 1016) (NOTE) Delfino OrtaCOMPREHENSIVE METABOLIC [id number] 00:00:00* Test Item Value Reference Range Interpretation Comme nts GLUCOSE (test code = 2217) 88 MG/DL BUN (test code = 2208) 24 MG/DL CREATININE (test code = 2214) 0.94 MG/DL eGFR AMER. (test cod e = 05401) 80 ML/MIN/1.73 eGFR NON- AMER. (test code = 66054) 69 ML/MIN/1.73 CALC BUN/CREAT (test code = [...] code = 2219) 10 U/L COMPREHENSIVE METABOLIC [id number] 00:00:00* Test Item Value Reference Range Interpretation Comme nts GLUCOSE (test code = 2217) 88 MG/DL BUN (test code = 2208) 24 MG/DL CREATININE (test code = 2214) 0.94 MG/DL eGFR AMER. (test cod e = 38681) 80 ML/MIN/1.73 eGFR NON- AMER. (test code = 84914) 69 ML/MIN/1.73 CALC BUN/CREAT (test code = [...] code = 2219) 10 U/L Delfino OrtaLIPID [id number] 00:00:00* Test Item Value Reference Range Interpretation Comme nts CHOLESTEROL (test code = 2210) 211 MG/DL TRIGLYCERIDES (test code = 2232) 52 MG/DL HDL CHOLESTEROL (test code = 2220) 90 MG/DL CALC LDL CHOL (test code = 2237) 111 MG/DL RISK RATIO LDL/HDL (test cod e = 2238) 1.23 RATIO LIPID [id number] 00:00:00* Test Item Value Reference Range Interpretation Comme nts CHOLESTEROL (test code = 2210) 211 MG/DL TRIGLYCERIDES (test code = 2232) 52 MG/DL HDL CHOLESTEROL (test code = 2220) 90 MG/DL CALC LDL CHOL (test code = 2237) 111 MG/DL RISK RATIO LDL/HDL (test cod e = 2238) 1.23 RATIO Delfino OrtaCBC W/AUTO [id number] 00:00:00* Test Item Value Reference Range Interpretation [...] (test code = 1016) (NOTE) COMPREHENSIVE METABOLIC [id number] 00:00:00* Test Item Value Reference Range Interpretation Comme nts GLUCOSE (test code = 2217) 88 MG/DL BUN (test code = 2208) 24 MG/DL CREATININE (test code = 2214) 0.94 MG/DL eGFR AMER. (test cod e = 68546) 80 ML/MIN/1.73 eGFR NON- AMER. (test code = 24833) 69 ML/MIN/1.73 CALC BUN/CREAT (test code = [...] code = 2219) 10 U/L CBC W/AUTO [id number] 00:00:00* Test Item Value Reference Range Interpretation [...] code = 1016) (NOTE) Delfino Schumacher AustinLIPID [id number] 00:00:00* Test Item Value Reference Range Interpretation Comme nts CHOLESTEROL (test code = 2210) 211 MG/DL TRIGLYCERIDES (test code = 2232) 52 MG/DL HDL CHOLESTEROL (test code = 2220) 90 MG/DL CALC LDL CHOL (test code = 2237) 111 MG/DL RISK RATIO LDL/HDL (test cod e = 2238) 1.23 RATIO COMPREHENSIVE METABOLIC [id number] 00:00:00* Test Item Value Reference Range Interpretation Comme nts GLUCOSE (test code = 2217) 88 MG/DL BUN (test code = 2208) 24 MG/DL CREATININE (test code = 2214) 0.94 MG/DL eGFR AMER. (test cod e = 41492) 80 ML/MIN/1.73 eGFR NON- AMER. (test code = 56673) 69 ML/MIN/1.73 CALC BUN/CREAT (test code = [...] (test code = 2219) 10 U/L [facility] [id number] 00:00:00* Test Item Value Reference Range Interpretation [...] COMMENTS (test code = 1016) (NOTE) LIPID [id number] 00:00:00* Test Item Value Reference Range Interpretation Comme nts CHOLESTEROL (test code = 2210) 211 MG/DL TRIGLYCERIDES (test code = 2232) 52 MG/DL HDL CHOLESTEROL (test code = 2220) 90 MG/DL CALC LDL CHOL (test code = 2237) 111 MG/DL RISK RATIO LDL/HDL (test cod e = 2238) 1.23 RATIO Delfino F YouCOMPREHENSIVE METABOLIC [id number] 00:00:00* Test Item Value Reference Range Interpretation Comme nts GLUCOSE (test code = 2217) 88 MG/DL BUN (test code = 2208) 24 MG/DL CREATININE (test code = 2214) 0.94 MG/DL eGFR AMER. (test cod e = 26478) 80 ML/MIN/1.73 eGFR NON- AMER. (test code = 39135) 69 ML/MIN/1.73 CALC BUN/CREAT (test code = [...] code = 2219) 10 U/L CBC W/AUTO [id number] 00:00:00* Test Item Value Reference Range Interpretation [...] (test code = 1016) (NOTE) Delfino F AustinLIPID [id number] 00:00:00* Test Item Value Reference Range Interpretation Comme nts CHOLESTEROL (test code = 2210) 211 MG/DL TRIGLYCERIDES (test code = 2232) 52 MG/DL HDL CHOLESTEROL (test code = 2220) 90 MG/DL CALC LDL CHOL (test code = 2237) 111 MG/DL RISK RATIO LDL/HDL (test cod e = 2238) 1.23 RATIO COMPREHENSIVE METABOLIC [id number] 00:00:00* Test Item Value Reference Range Interpretation Comme nts GLUCOSE (test code = 2217) 88 MG/DL BUN (test code = 2208) 24 MG/DL CREATININE (test code = 2214) 0.94 MG/DL eGFR AMER. (test cod e = 33074) 80 ML/MIN/1.73 eGFR NON- AMER. (test code = 41424) 69 ML/MIN/1.73 CALC BUN/CREAT (test code = [...] code = 2219) 10 U/L Delfino OrtaLIPID [id number] 00:00:00* Test Item Value Reference Range Interpretation Comme nts CHOLESTEROL (test code = 2210) 211 MG/DL TRIGLYCERIDES (test code = 2232) 52 MG/DL HDL CHOLESTEROL (test code = 2220) 90 MG/DL CALC LDL CHOL (test code = 2237) 111 MG/DL RISK RATIO LDL/HDL (test cod e = 2238) 1.23 RATIO Delfino OrtaCBC W/AUTO [id number] 00:00:00* Test Item Value Reference Range Interpretation [...] code = 1016) (NOTE) Delfino OrtaCOMPREHENSIVE METABOLIC [id number] 00:00:00* Test Item Value Reference Range Interpretation Comme nts GLUCOSE (test code = 2217) 88 MG/DL BUN (test code = 2208) 24 MG/DL CREATININE (test code = 2214) 0.94 MG/DL eGFR AMER. (test cod e = 50264) 80 ML/MIN/1.73 eGFR NON- AMER. (test code = 75167) 69 ML/MIN/1.73 CALC BUN/CREAT (test code = [...] code = 2219) 10 U/L Delfino Endy YouLIPID [id number] 00:00:00* Test Item Value Reference Range Interpretation Comme nts CHOLESTEROL (test code = 2210) 211 MG/DL TRIGLYCERIDES (test code = 2232) 52 MG/DL HDL CHOLESTEROL (test code = 2220) 90 MG/DL CALC LDL CHOL (test code = 2237) 111 MG/DL RISK RATIO LDL/HDL (test cod e = 2238) 1.23 RATIO Delfino OrtaCBC W/AUTO [id number] 00:00:00* Test Item Value Reference Range Interpretation [...] code = 1016) (NOTE) Delfino OrtaCOMPREHENSIVE METABOLIC [id number] 00:00:00* Test Item Value Reference Range Interpretation Comme nts GLUCOSE (test code = 2217) 88 MG/DL BUN (test code = 2208) 24 MG/DL CREATININE (test code = 2214) 0.94 MG/DL eGFR AMER. (test cod e = 81916) 80 ML/MIN/1.73 eGFR NON- AMER. (test code = 55349) 69 ML/MIN/1.73 CALC BUN/CREAT (test code = [...] code = 2219) 10 U/L Delfino OrtaLIPID [id number] 00:00:00* Test Item Value Reference Range Interpretation Comme nts CHOLESTEROL (test code = 2210) 211 MG/DL TRIGLYCERIDES (test code = 2232) 52 MG/DL HDL CHOLESTEROL (test code = 2220) 90 MG/DL CALC LDL CHOL (test code = 2237) 111 MG/DL RISK RATIO LDL/HDL (test cod e = 2238) 1.23 RATIO Delfino OrtaCBC W/AUTO [id number] 00:00:00* Test Item Value Reference Range Interpretation [...] code = 1016) (NOTE) Delfino OrtaCOMPREHENSIVE METABOLIC [id number] 00:00:00* Test Item Value Reference Range Interpretation Comme nts GLUCOSE (test code = 2217) 88 MG/DL BUN (test code = 2208) 24 MG/DL CREATININE (test code = 2214) 0.94 MG/DL eGFR AMER. (test cod e = 83474) 80 ML/MIN/1.73 eGFR NON- AMER. (test code = 43744) 69 ML/MIN/1.73 CALC BUN/CREAT (test code = [...] = 2219) 10 U/L Delfino Schumacher AustinLIPID [id number] 00:00:00* Test Item Value Reference Range Interpretation Comme nts CHOLESTEROL (test code = 2210) 211 MG/DL TRIGLYCERIDES (test code = 2232) 52 MG/DL HDL CHOLESTEROL (test code = 2220) 90 MG/DL CALC LDL CHOL (test code = 2237) 111 MG/DL RISK RATIO LDL/HDL (test cod e = 2238) 1.23 RATIO Delfino OrtaCBC W/AUTO [id number] 00:00:00* Test Item Value Reference Range Interpretation [...] code = 1016) (NOTE) Delfino OrtaCOMPREHENSIVE METABOLIC [id number] 00:00:00* Test Item Value Reference Range Interpretation Comme nts GLUCOSE (test code = 2217) 88 MG/DL BUN (test code = 2208) 24 MG/DL CREATININE (test code = 2214) 0.94 MG/DL eGFR AMER. (test cod e = 75296) 80 ML/MIN/1.73 eGFR NON- AMER. (test code = 62082) 69 ML/MIN/1.73 CALC BUN/CREAT (test code = [...] code = 2219) 10 U/L Delfino OrtaLIPID [id number] 00:00:00* Test Item Value Reference Range Interpretation Comme nts CHOLESTEROL (test code = 2210) 211 MG/DL TRIGLYCERIDES (test code = 2232) 52 MG/DL HDL CHOLESTEROL (test code = 2220) 90 MG/DL CALC LDL CHOL (test code = 2237) 111 MG/DL RISK RATIO LDL/HDL (test cod e = 2238) 1.23 RATIO Delfino OrtaCBC W/AUTO [id number] 00:00:00* Test Item Value Reference Range Interpretation [...] code = 1016) (NOTE) Delfino OrtaC W/AUTO [id number] 00:00:00* Test Item Value Reference Range Interpretation [...] = 1016) (NOTE) Delfino Schumacher YouCOMPREHENSIVE METABOLIC [id number] 00:00:00* Test Item Value Reference Range Interpretation Comme nts GLUCOSE (test code = 2217) 88 MG/DL BUN (test code = 2208) 24 MG/DL CREATININE (test code = 2214) 0.94 MG/DL eGFR AMER. (test cod e = 05130) 80 ML/MIN/1.73 eGFR NON- AMER. (test code = 82427) 69 ML/MIN/1.73 CALC BUN/CREAT (test code = [...] code = 2219) 10 U/L Delfino OrtaLIPID [id number] 00:00:00* Test Item Value Reference Range Interpretation Comme nts CHOLESTEROL (test code = 2210) 211 MG/DL TRIGLYCERIDES (test code = 2232) 52 MG/DL HDL CHOLESTEROL (test code = 2220) 90 MG/DL CALC LDL CHOL (test code = 2237) 111 MG/DL RISK RATIO LDL/HDL (test cod e = 2238) 1.23 RATIO Delfino OrtaCBC W/AUTO [id number] 00:00:00* Test Item Value Reference Range Interpretation [...] code = 1016) (NOTE) Delfino OrtaCOMPREHENSIVE METABOLIC [id number] 00:00:00* Test Item Value Reference Range Interpretation Comme nts GLUCOSE (test code = 2217) 88 MG/DL BUN (test code = 2208) 24 MG/DL CREATININE (test code = 2214) 0.94 MG/DL eGFR AMER. (test cod e = 69408) 80 ML/MIN/1.73 eGFR NON- AMER. (test code = 23805) 69 ML/MIN/1.73 CALC BUN/CREAT (test code = [...] code = 2219) 10 U/L Delfino OrtaLIPID [id number] 00:00:00* Test Item Value Reference Range Interpretation Comme nts CHOLESTEROL (test code = 2210) 211 MG/DL TRIGLYCERIDES (test code = 2232) 52 MG/DL HDL CHOLESTEROL (test code = 2220) 90 MG/DL CALC LDL CHOL (test code = 2237) 111 MG/DL RISK RATIO LDL/HDL (test cod e = 2238) 1.23 RATIO Delfino OrtaCBC W/AUTO [id number] 00:00:00* Test Item Value Reference Range Interpretation [...] code = 1016) (NOTE) Delfino OrtaCOMPREHENSIVE METABOLIC [id number] 00:00:00* Test Item Value Reference Range Interpretation Comme nts GLUCOSE (test code = 2217) 88 MG/DL BUN (test code = 2208) 24 MG/DL CREATININE (test code = 2214) 0.94 MG/DL eGFR AMER. (test cod e = 42238) 80 ML/MIN/1.73 eGFR NON- AMER. (test code = 83226) 69 ML/MIN/1.73 CALC BUN/CREAT (test code = [...] code = 2219) 10 U/L Delfino OrtaLIPID [id number] 00:00:00* Test Item Value Reference Range Interpretation Comme nts CHOLESTEROL (test code = 2210) 211 MG/DL TRIGLYCERIDES (test code = 2232) 52 MG/DL HDL CHOLESTEROL (test code = 2220) 90 MG/DL CALC LDL CHOL (test code = 2237) 111 MG/DL RISK RATIO LDL/HDL (test cod e = 2238) 1.23 RATIO Delfino OrtaCOMPREHENSIVE METABOLIC [id number] 00:00:00* Test Item Value Reference Range Interpretation Comme nts GLUCOSE (test code = 2217) 88 MG/DL BUN (test code = 2208) 24 MG/DL CREATININE (test code = 2214) 0.94 MG/DL eGFR AMER. (test cod e = 24577) 80 ML/MIN/1.73 eGFR NON- AMER. (test code = 91933) 69 ML/MIN/1.73 CALC BUN/CREAT (test code = [...] code = 2219) 10 U/L Delfino OrtaLIPID [id number] 00:00:00* Test Item Value Reference Range Interpretation Comme nts CHOLESTEROL (test code = 2210) 211 MG/DL TRIGLYCERIDES (test code = 2232) 52 MG/DL HDL CHOLESTEROL (test code = 2220) 90 MG/DL CALC LDL CHOL (test code = 2237) 111 MG/DL RISK RATIO LDL/HDL (test cod e = 2238) 1.23 RATIO Delfino OrtaCBC W/AUTO [id number] 00:00:00* Test Item Value Reference Range Interpretation [...] (test code = 1016) (NOTE) Delfino OrtaVITAMIN D, 25 [id number] 00:00:00* Test Item Value Reference Range Interpretation Comme nts VITAMIN D, 25 OH (test code = 4958) 36 NG/ML Delfino Schumacher [place] [id number] 00:00:00* Test Item Value Reference Range Interpretation Comme nts URIC ACID (test code = 2233) 7.5 MG/DL Delfino OrtaVITAMIN D, 25 [id number] 00:00:00* Test Item Value Reference Range Interpretation Comme nts VITAMIN D, 25 OH (test code = 4958) 36 NG/ML Delfino Schumacher [place] [id number] 00:00:00* Test Item Value Reference Range Interpretation Comme nts URIC ACID (test code = 2233) 7.5 MG/DL Delfino Schumacher AustinVITAMIN D, 25 [id number] 00:00:00* Test Item Value Reference Range Interpretation Comme nts VITAMIN D, 25 OH (test code = 4958) 36 NG/ML Delfino Schumacher AustinURIC [id number] 00:00:00* Test Item Value Reference Range Interpretation Comme nts URIC ACID (test code = 2233) 7.5 MG/DL Delfino Schumacher AustinVITAMIN D, 25 [id number] 00:00:00* Test Item Value Reference Range Interpretation Comme nts VITAMIN D, 25 OH (test code = 4958) 36 NG/ML Delfino Schumacher AustinURIC [id number] 00:00:00* Test Item Value Reference Range Interpretation Comme nts URIC ACID (test code = 2233) 7.5 MG/DL Delfino Schumacher AustinVITAMIN D, 25 [id number] 00:00:00* Test Item Value Reference Range Interpretation Comme nts VITAMIN D, 25 OH (test code = 4958) 36 NG/ML Delfino Schumacher AustinURIC [id number] 00:00:00* Test Item Value Reference Range Interpretation Comme nts URIC ACID (test code = 2233) 7.5 MG/DL Delfino Schumacher AustinVITAMIN D, 25 [id number] 00:00:00* Test Item Value Reference Range Interpretation Comme nts VITAMIN D, 25 OH (test code = 4958) 36 NG/ML Delfino Schumacher AustinURIC [id number] 00:00:00* Test Item Value Reference Range Interpretation Comme nts URIC ACID (test code = 2233) 7.5 MG/DL Delfino Schumacher AustinVITAMIN D, 25 [id number] 00:00:00* Test Item Value Reference Range Interpretation Comme nts VITAMIN D, 25 OH (test code = 4958) 36 NG/ML Delfino Schumacher AustinURIC [id number] 00:00:00* Test Item Value Reference Range Interpretation Comme nts URIC ACID (test code = 2233) 7.5 MG/DL URIC [id number] 00:00:00* Test Item Value Reference Range Interpretation Comme nts URIC ACID (test code = 2233) 7.5 MG/DL Delfino Schumacher AustinVITAMIN D, 25 [id number] 00:00:00* Test Item Value Reference Range Interpretation Comme nts VITAMIN D, 25 OH (test code = 4958) 36 NG/ML VITAMIN D, 25 [id number] 00:00:00* Test Item Value Reference Range Interpretation Comme nts VITAMIN D, 25 OH (test code = 4958) 36 NG/ML Delfino Schumacher [facility] [id number] 00:00:00* Test Item Value Reference Range Interpretation Comme nts URIC ACID (test code = 2233) 7.5 MG/DL URIC [id number] 00:00:00* Test Item Value Reference Range Interpretation Comme nts URIC ACID (test code = 2233) 7.5 MG/DL Delfino Schumacher AustinVITAMIN D, 25 [id number] 00:00:00* Test Item Value Reference Range Interpretation Comme nts VITAMIN D, 25 OH (test code = 4958) 36 NG/ML VITAMIN D, 25 [id number] 00:00:00* Test Item Value Reference Range Interpretation Comme nts VITAMIN D, 25 OH (test code = 4958) 36 NG/ML Delfino Schumacher [facility]IC [id number] 00:00:00* Test Item Value Reference Range Interpretation Comme nts URIC ACID (test code = 2233) 7.5 MG/DL VITAMIN D, 25 [id number] 00:00:00* Test Item Value Reference Range Interpretation Comme nts VITAMIN D, 25 OH (test code = 4958) 36 NG/ML URIC [id number] 00:00:00* Test Item Value Reference Range Interpretation Comme nts URIC ACID (test code = 2233) 7.5 MG/DL Delfino Schumacher AustinVITAMIN D, 25 [id number] 00:00:00* Test Item Value Reference Range Interpretation Comme nts VITAMIN D, 25 OH (test code = 4958) 36 NG/ML Delfino Schumacher AustinURIC [id number] 00:00:00* Test Item Value Reference Range Interpretation Comme nts URIC ACID (test code = 2233) 7.5 MG/DL VITAMIN D, 25 [id number] 00:00:00* Test Item Value Reference Range Interpretation Comme nts VITAMIN D, 25 OH (test code = 4958) 36 NG/ML URIC [id number] 00:00:00* Test Item Value Reference Range Interpretation Comme nts URIC ACID (test code = 2233) 7.5 MG/DL Delfino Schumacher AustinVITAMIN D, 25 [id number] 00:00:00* Test Item Value Reference Range Interpretation Comme nts VITAMIN D, 25 OH (test code = 4958) 36 NG/ML Delfino Schumacher [facility] [id number] 00:00:00* Test Item Value Reference Range Interpretation Comme nts URIC ACID (test code = 2233) 7.5 MG/DL Delfino Schumacher AustinVITAMIN D, 25 [id number] 00:00:00* Test Item Value Reference Range Interpretation Comme nts VITAMIN D, 25 OH (test code = 4958) 36 NG/ML Delfino Schumacher [facility] [id number] 00:00:00* Test Item Value Reference Range Interpretation Comme nts URIC ACID (test code = 2233) 7.5 MG/DL Delfino Schumacher AustinVITAMIN D, 25 [id number] 00:00:00* Test Item Value Reference Range Interpretation Comme nts VITAMIN D, 25 OH (test code = 4958) 36 NG/ML Delfino Schumacher [facility] [id number] 00:00:00* Test Item Value Reference Range Interpretation Comme nts URIC ACID (test code = 2233) 7.5 MG/DL Delfino Schumacher AustinVITAMIN D, 25 [id number] 00:00:00* Test Item Value Reference Range Interpretation Comme nts VITAMIN D, 25 OH (test code = 4958) 36 NG/ML Delfino Schumacher [facility] [id number] 00:00:00* Test Item Value Reference Range Interpretation Comme nts URIC ACID (test code = 2233) 7.5 MG/DL Delfino Schumacher [facility] [id number] 00:00:00* Test Item Value Reference Range Interpretation Comme nts URIC ACID (test code = 2233) 7.5 MG/DL Delfino Schumacher AustinVITAMIN D, 25 [id number] 00:00:00* Test Item Value Reference Range Interpretation Comme nts VITAMIN D, 25 OH (test code = 4958) 36 NG/ML Delfino F AustinURIC [id number] 00:00:00* Test Item Value Reference Range Interpretation Comme nts URIC ACID (test code = 2233) 7.5 MG/DL Delfino Schumacher AustinVITAMIN D, 25 [id number] 00:00:00* Test Item Value Reference Range Interpretation Comme nts VITAMIN D, 25 OH (test code = 4958) 36 NG/ML Delfino Schumacher [facility] [id number] 00:00:00* Test Item Value Reference Range Interpretation Comme nts URIC ACID (test code = 2233) 7.5 MG/DL Delfino Schumacher AustinVITAMIN D, 25 [id number] 00:00:00* Test Item Value Reference Range Interpretation Comme nts VITAMIN D, 25 OH (test code = 4958) 36 NG/ML Delfino Schumacher AustinVITAMIN D, 25 [id number] 00:00:00* Test Item Value Reference Range Interpretation Comme nts VITAMIN D, 25 OH (test code = 4958) 36 NG/ML Delfino Schumacher [facility] [id number] 00:00:00* Test Item Value Reference Range Interpretation Comme nts URIC ACID (test code = 2233) 7.5 MG/DL Delfino OrtaVITAMIN D, 25 [id number] 00:00:00* Test Item Value Reference Range Interpretation Comme nts VITAMIN D, 25 OH (test code = 4958) 36 NG/ML Delfino Schumacher [facility] [id number] 00:00:00* Test Item Value Reference Range Interpretation Comme nts URIC ACID (test code = 2233) 7.5 MG/DL Delfino Schumacher AustinSEDIMENTATION [id number] 00:00:00* Test Item Value Reference Range Interpretation Comme nts SEDIMENTATION RATE (test cod e = 1017) 117 MM/HOUR Delfino OrtaRHEUMATOID FACTOR, [id number] 00:00:00* Test Item Value Reference Range Interpretation Comme nts RHEUMATOID FACTOR, QUANT (te st code = 3502) <10 IU/ML Delfino Schumacher AustinSEDIMENTATION [id number] 00:00:00* Test Item Value Reference Range Interpretation Comme nts SEDIMENTATION RATE (test cod e = 1017) 117 MM/HOUR Delfino Schumacher AustinC-REACTIVE [id number] 00:00:00* Test Item Value Reference Range Interpretation Comme nts C-REACTIVE PROTEIN (test cod e = 3513) 0.3 MG/DL Delfino F AustinRHEUMATOID FACTOR, [id number] 00:00:00* Test Item Value Reference Range Interpretation Comme nts RHEUMATOID FACTOR, QUANT (te st code = 3502) <10 IU/ML Delfino F AustinSEDIMENTATION [id number] 00:00:00* Test Item Value Reference Range Interpretation Comme nts SEDIMENTATION RATE (test cod e = 1017) 117 MM/HOUR Delfino F AustinC-REACTIVE [id number] 00:00:00* Test Item Value Reference Range Interpretation Comme nts C-REACTIVE PROTEIN (test cod e = 3513) 0.3 MG/DL Delfino F AustinRHEUMATOID FACTOR, [id number] 00:00:00* Test Item Value Reference Range Interpretation Comme nts RHEUMATOID FACTOR, QUANT (te st code = 3502) <10 IU/ML Delfino F AustinSEDIMENTATION [id number] 00:00:00* Test Item Value Reference Range Interpretation Comme nts SEDIMENTATION RATE (test cod e = 1017) 117 MM/HOUR Delfino F AustinC-REACTIVE [id number] 00:00:00* Test Item Value Reference Range Interpretation Comme nts C-REACTIVE PROTEIN (test cod e = 3513) 0.3 MG/DL Delfino F AustinRHEUMATOID FACTOR, [id number] 00:00:00* Test Item Value Reference Range Interpretation Comme nts RHEUMATOID FACTOR, QUANT (te st code = 3502) <10 IU/ML Delfino F AustinSEDIMENTATION [id number] 00:00:00* Test Item Value Reference Range Interpretation Comme nts SEDIMENTATION RATE (test cod e = 1017) 117 MM/HOUR Delfino F AustinC-REACTIVE [id number] 00:00:00* Test Item Value Reference Range Interpretation Comme nts C-REACTIVE PROTEIN (test cod e = 3513) 0.3 MG/DL Delfino F AustinRHEUMATOID FACTOR, [id number] 00:00:00* Test Item Value Reference Range Interpretation Comme nts RHEUMATOID FACTOR, QUANT (te st code = 3502) <10 IU/ML Delfino F AustinSEDIMENTATION [id number] 00:00:00* Test Item Value Reference Range Interpretation Comme nts SEDIMENTATION RATE (test cod e = 1017) 117 MM/HOUR Delfino F AustinC-REACTIVE [id number] 00:00:00* Test Item Value Reference Range Interpretation Comme nts C-REACTIVE PROTEIN (test cod e = 3513) 0.3 MG/DL Delfino F AustinRHEUMATOID FACTOR, [id number] 00:00:00* Test Item Value Reference Range Interpretation Comme nts RHEUMATOID FACTOR, QUANT (te st code = 3502) <10 IU/ML Delfino F AustinSEDIMENTATION [id number] 00:00:00* Test Item Value Reference Range Interpretation Comme nts SEDIMENTATION RATE (test cod e = 1017) 117 MM/HOUR Dlefino F AustinC-REACTIVE [id number] 00:00:00* Test Item Value Reference Range Interpretation Comme nts C-REACTIVE PROTEIN (test cod e = 3513) 0.3 MG/DL Delfino F AustinRHEUMATOID FACTOR, [id number] 00:00:00* Test Item Value Reference Range Interpretation Comme nts RHEUMATOID FACTOR, QUANT (te st code = 3502) <10 IU/ML Delfino F AustinSEDIMENTATION [id number] 00:00:00* Test Item Value Reference Range Interpretation Comme nts SEDIMENTATION RATE (test cod e = 1017) 117 MM/HOUR Delfino F AustinC-REACTIVE [id number] 00:00:00* Test Item Value Reference Range Interpretation Comme nts C-REACTIVE PROTEIN (test cod e = 3513) 0.3 MG/DL C-REACTIVE [id number] 00:00:00* Test Item Value Reference Range Interpretation Comme nts C-REACTIVE PROTEIN (test cod e = 3513) 0.3 MG/DL Delfino F AustinRHEUMATOID FACTOR, [id number] 00:00:00* Test Item Value Reference Range Interpretation Comme nts RHEUMATOID FACTOR, QUANT (te st code = 3502) <10 IU/ML RHEUMATOID FACTOR, [id number] 00:00:00* Test Item Value Reference Range Interpretation Comme nts RHEUMATOID FACTOR, QUANT (te st code = 3502) <10 IU/ML Delfino F AustinSEDIMENTATION [id number] 00:00:00* Test Item Value Reference Range Interpretation Comme nts SEDIMENTATION RATE (test cod e = 1017) 117 MM/HOUR C-REACTIVE [id number] 00:00:00* Test Item Value Reference Range Interpretation Comme nts C-REACTIVE PROTEIN (test cod e = 3513) 0.3 MG/DL SEDIMENTATION [id number] 00:00:00* Test Item Value Reference Range Interpretation Comme nts SEDIMENTATION RATE (test cod e = 1017) 117 MM/HOUR Delfino Endy AustinC-REACTIVE [id number] 00:00:00* Test Item Value Reference Range Interpretation Comme nts C-REACTIVE PROTEIN (test cod e = 3513) 0.3 MG/DL Delfino F AustinRHEUMATOID FACTOR, [id number] 00:00:00* Test Item Value Reference Range Interpretation Comme nts RHEUMATOID FACTOR, QUANT (te st code = 3502) <10 IU/ML RHEUMATOID FACTOR, [id number] 00:00:00* Test Item Value Reference Range Interpretation Comme nts RHEUMATOID FACTOR, QUANT (te st code = 3502) <10 IU/ML Delfino F AustinSEDIMENTATION [id number] 00:00:00* Test Item Value Reference Range Interpretation Comme nts SEDIMENTATION RATE (test cod e = 1017) 117 MM/HOUR SEDIMENTATION [id number] 00:00:00* Test Item Value Reference Range Interpretation Comme nts SEDIMENTATION RATE (test cod e = 1017) 117 MM/HOUR Delfino F AustinC-REACTIVE [id number] 00:00:00* Test Item Value Reference Range Interpretation Comme nts C-REACTIVE PROTEIN (test cod e = 3513) 0.3 MG/DL C-REACTIVE [id number] 00:00:00* Test Item Value Reference Range Interpretation Comme nts C-REACTIVE PROTEIN (test cod e = 3513) 0.3 MG/DL Delfino F AustinRHEUMATOID FACTOR, [id number] 00:00:00* Test Item Value Reference Range Interpretation Comme nts RHEUMATOID FACTOR, QUANT (te st code = 3502) <10 IU/ML SEDIMENTATION [id number] 00:00:00* Test Item Value Reference Range Interpretation Comme nts SEDIMENTATION RATE (test cod e = 1017) 117 MM/HOUR C-REACTIVE [id number] 00:00:00* Test Item Value Reference Range Interpretation Comme nts C-REACTIVE PROTEIN (test cod e = 3513) 0.3 MG/DL RHEUMATOID FACTOR, [id number] 00:00:00* Test Item Value Reference Range Interpretation Comme nts RHEUMATOID FACTOR, QUANT (te st code = 3502) <10 IU/ML Delfino F AustinSEDIMENTATION [id number] 00:00:00* Test Item Value Reference Range Interpretation Comme nts SEDIMENTATION RATE (test cod e = 1017) 117 MM/HOUR Delfino F AustinRHEUMATOID FACTOR, [id number] 00:00:00* Test Item Value Reference Range Interpretation Comme nts RHEUMATOID FACTOR, QUANT (te st code = 3502) <10 IU/ML C-REACTIVE [id number] 00:00:00* Test Item Value Reference Range Interpretation Comme nts C-REACTIVE PROTEIN (test cod e = 3513) 0.3 MG/DL Delfino F AustinSEDIMENTATION [id number] 00:00:00* Test Item Value Reference Range Interpretation Comme nts SEDIMENTATION RATE (test cod e = 1017) 117 MM/HOUR RHEUMATOID FACTOR, [id number] 00:00:00* Test Item Value Reference Range Interpretation Comme nts RHEUMATOID FACTOR, QUANT (te st code = 3502) <10 IU/ML Delfino F AustinSEDIMENTATION [id number] 00:00:00* Test Item Value Reference Range Interpretation Comme nts SEDIMENTATION RATE (test cod e = 1017) 117 MM/HOUR Delfino F AustinC-REACTIVE [id number] 00:00:00* Test Item Value Reference Range Interpretation Comme nts C-REACTIVE PROTEIN (test cod e = 3513) 0.3 MG/DL Delfino F AustinRHEUMATOID FACTOR, [id number] 00:00:00* Test Item Value Reference Range Interpretation Comme nts RHEUMATOID FACTOR, QUANT (te st code = 3502) <10 IU/ML Delfino F AustinSEDIMENTATION [id number] 00:00:00* Test Item Value Reference Range Interpretation Comme nts SEDIMENTATION RATE (test cod e = 1017) 117 MM/HOUR Delfino F AustinC-REACTIVE [id number] 00:00:00* Test Item Value Reference Range Interpretation Comme nts C-REACTIVE PROTEIN (test cod e = 3513) 0.3 MG/DL Delfino F AustinRHEUMATOID FACTOR, [id number] 00:00:00* Test Item Value Reference Range Interpretation Comme nts RHEUMATOID FACTOR, QUANT (te st code = 3502) <10 IU/ML Delfino F AustinSEDIMENTATION [id number] 00:00:00* Test Item Value Reference Range Interpretation Comme nts SEDIMENTATION RATE (test cod e = 1017) 117 MM/HOUR Delfino F AustinC-REACTIVE [id number] 00:00:00* Test Item Value Reference Range Interpretation Comme nts C-REACTIVE PROTEIN (test cod e = 3513) 0.3 MG/DL Delfino F AustinRHEUMATOID FACTOR, [id number] 00:00:00* Test Item Value Reference Range Interpretation Comme nts RHEUMATOID FACTOR, QUANT (te st code = 3502) <10 IU/ML Delfino F AustinSEDIMENTATION [id number] 00:00:00* Test Item Value Reference Range Interpretation Comme nts SEDIMENTATION RATE (test cod e = 1017) 117 MM/HOUR Delfino F AustinC-REACTIVE [id number] 00:00:00* Test Item Value Reference Range Interpretation Comme nts C-REACTIVE PROTEIN (test cod e = 3513) 0.3 MG/DL Delfino F AustinRHEUMATOID FACTOR, [id number] 00:00:00* Test Item Value Reference Range Interpretation Comme nts RHEUMATOID FACTOR, QUANT (te st code = 3502) <10 IU/ML Delfino F AustinSEDIMENTATION [id number] 00:00:00* Test Item Value Reference Range Interpretation Comme nts SEDIMENTATION RATE (test cod e = 1017) 117 MM/HOUR Delfino F AustinC-REACTIVE [id number] 00:00:00* Test Item Value Reference Range Interpretation Comme nts C-REACTIVE PROTEIN (test cod e = 3513) 0.3 MG/DL Delfino F AustinRHEUMATOID FACTOR, [id number] 00:00:00* Test Item Value Reference Range Interpretation Comme nts RHEUMATOID FACTOR, QUANT (te st code = 3502) <10 IU/ML Delfino F AustinSEDIMENTATION [id number] 00:00:00* Test Item Value Reference Range Interpretation Comme nts SEDIMENTATION RATE (test cod e = 1017) 117 MM/HOUR Delfino F AustinC-REACTIVE [id number] 00:00:00* Test Item Value Reference Range Interpretation Comme nts C-REACTIVE PROTEIN (test cod e = 3513) 0.3 MG/DL Delfino F AustinC-REACTIVE [id number] 00:00:00* Test Item Value Reference Range Interpretation Comme nts C-REACTIVE PROTEIN (test cod e = 3513) 0.3 MG/DL Delfino F AustinRHEUMATOID FACTOR, [id number] 00:00:00* Test Item Value Reference Range Interpretation Comme nts RHEUMATOID FACTOR, QUANT (te st code = 3502) <10 IU/ML Delfino F AustinSEDIMENTATION [id number] 00:00:00* Test Item Value Reference Range Interpretation Comme nts SEDIMENTATION RATE (test cod e = 1017) 117 MM/HOUR Delfino F AustinRHEUMATOID FACTOR, [id number] 00:00:00* Test Item Value Reference Range Interpretation Comme nts RHEUMATOID FACTOR, QUANT (te st code = 3502) <10 IU/ML Delfino F AustinC-REACTIVE [id number] 00:00:00* Test Item Value Reference Range Interpretation Comme nts C-REACTIVE PROTEIN (test cod e = 3513) 0.3 MG/DL Delfino F AustinRHEUMATOID FACTOR, [id number] 00:00:00* Test Item Value Reference Range Interpretation Comme nts RHEUMATOID FACTOR, QUANT (te st code = 3502) <10 IU/ML Delfino F AustinSEDIMENTATION [id number] 00:00:00* Test Item Value Reference Range Interpretation Comme nts SEDIMENTATION RATE (test cod e = 1017) 117 MM/HOUR Delfino F AustinC-REACTIVE [id number] 00:00:00* Test Item Value Reference Range Interpretation Comme nts C-REACTIVE PROTEIN (test cod e = 3513) 0.3 MG/DL Delfino F You Consult Notes Date/Time Note Provider Source 2023-05-19 10:11:14 Associated Order(s): CONSULT [facility] Cardiology Consult PCP: Jt Delfino [facility] Date of Service: 05/19/2023 CHIEF COMPLAINT/reason for consult: Troponin elevation HISTORY OF PRESENT ILLNESS This is a 58 years old female with past medical history of HIV, hypertension, hyperlipidemia, possible CAD etc. She came to [facility] due to cough and dyspnea. She was found to have COPD exacerbation. Labs showed troponin elevation and TAIWO. Denies chest pain. No acute EKG changes. Echocardiogram showed hyperdynamic left ventricle with ejection fraction over 65%. Moderate aortic stenosis noted. PAST MEDICAL HISTORY Past Medical History: Diagnosis Date Coronary atherosclerosis of unspecified type of vessel, [place] or graft 02/11/2013 heart attack Genital warts [...] or Shortness of Breath. 8.5 g 0 vmcpywfzr-dofwnxhs-mexbtby ala 50-200-25 mg tablet Take 1 tablet [...] injury) Aortic stenosis Coronary artery disease involving [place] coronary artery of afognak heart without angina pectoris COPD exacerbation-continue antibiotics, [...] statins. Continue metoprolol. Follow-up with his primary interchange agent. Possible CAD-she denies coronary intervention. Recommend to [...] further assistance. James Stacy MD, FACC, AUSTYN Credit Review Manager Division of Cardiovascular Medicine [facility] - Health History and Physical [...] or Shortness of Breath. 8.5 g 0 dmzjwsicg-zltxgbtf-qdyvmvh ala 50-200-25 mg tablet Take 1 tablet [...] Coronary atherosclerosis of unspecified type of vessel, af[place] or graft 02/11/2013 heart attack Genital warts [...] tablet 10 mg, 10 mg, Oral, QHS, eLfty Abreu MD, 10 mg at 05/16/23 2218 [...] per tablet 1 tablet, 1 tablet, Oral, QMON/SAT/FRI AT 2000, Lefty Abreu MD Objective: Vitals: Vitals: 05/16/23 1612 05/16/23 1624 05/16/23191405/16/232029 BP: 117/69 Pulse: 98 99 Resp: 16 16 18 25 Temp: 37.2 ?C (99 ?F) TempSrc: SpO2: 97% 96% 94% 94% Weight: Height: I/O's: Intake/Output Summary (Last 24 hours) at 05/16/2023 2313 Last data filed at 05/16/20231914 Gross per [...] Disposition: Admit to inpatient IM-[facility] - Health Notes Date/Time Note Provider Source [facility]2025-02-26 00:00:00 [facility]2025-01-27 00:00:00 [facility]2025-01-15 00:00:00 [facility]2024-12-27 00:00:00 [facility]2024-12-02 00:00:00 [facility]2024-11-20 00:00:00 [facility]2024-10-17 00:00:00 [facility]2024-10-08 00:00:00 [facility]2024-09-21 00:00:00 [facility]2024-08-28 00:00:00 [facility]2024-08-12 00:00:00 [facility]2024-07-30 00:00:00 [facility]2024-07-17 00:00:00 [facility]2024-07-11 00:00:00 [facility]2024-06-28 00:00:00 [facility]2024-06-12 00:00:00 [facility]2024-05-28 00:00:00 [facility]2024-04-23 00:00:00 Delfino F. [facility]2024-04-10 08:57:37 TRANSITIONAL CARE MANAGEMENT ASSESSMENT 05/22/2023 Charito Quiñonez [id number] Charito Quiñonez is a 58 year old Black or female was admitted on 05/16/23 to [facility], [facility] MED SURG. She was discharged on [...] mg twice daily No linked episodes TCM Rgt-drgs-wa-face outreach documentation: CM made follow up call to patient post-discharge. Phone rings with no answer and no voicemail. Two attempts made to reach patient. Discharge Assessment Chart Assessed: 05/22/23 TCM Outreach Completed: 05/22/23 Future Appointments: [facility] 14:20:10 CM made follow up call to patient post-discharge. No answer and no voicemail. [facility] - Xhknkv5398-04-30 15:49:35 Problem: Pain Goal: Control of pain [...] Outcome: Adequate for discharge [facility] Pablo Rios [facility] System[facility]4870-55-99 13:54:10 Problem: Pain Goal: Control of pain [...] Outcome: Progressing as expected T Valeria Tyler [facility] SystemUwygkf8764-58-87 23:51:17 Problem: Pain Goal: Control of pain [...] discharge Outcome: Progressing as expected Marisela Bañuelos [facility] SystemEuvgij7239-37-13 12:43:53 Problem: Pain Goal: Control of pain [...] Adequate for discharge Outcome: Progressing as expected [place] [address]-04-06 13:44:06 Problem: Pain Goal: Control of pain [...] Adequate for discharge Outcome: Progressing as expected [place] [address]-04-06 06:26:57 Problem: Pain Goal: Control of pain [...] Adequate for discharge Outcome: Progressing as expected [place] [address]-04-06 01:04:[address] Rosario about pt having generalized wheezing and would benefit from IV steroids, waiting for response. Will continue to monitor. [facility][NOTE 3] Argentina Chambers [facility] SystemHerglk6911-22-31 17:16:46 Problem: Pain Goal: Control of pain at or below patient's documented comfort goal 05/17/2023 1716 by Molly Pond RN Outcome: Progressing as expected 05/17/2023 1715 by Molly Pond RN Outcome: Progressing as expected Goal: Reduction in pain sensation 05/17/2023 1716 by Molly Pond RN Outcome: Progressing as expected 05/17/2023 171 by Molly Pond RN Outcome: Progressing as expected Problem: Respiratory Function - Impaired Goal: Able to cough effectively 05/17/2023 1716 by Molly Pond RN Outcome: Progressing as expected 05/17/2023 171 by Molly Pond RN Outcome: Progressing as expected Goal: Adequate oxygenation 05/17/2023 171 by Molly Pond RN Outcome: Progressing as expected 05/17/2023 171 by Molly Pond RN Outcome: Progressing as expected Goal: Adequate work of breathing 05/17/2023 1716 by Molly Pond RN Outcome: Progressing as expected 05/17/2023 171 by Molly Pond RN Outcome: Progressing as expected Problem: Discharge Planning Goal: Adequate for discharge 05/17/2023 171 by Molly Pond RN Outcome: Progressing as expected 05/17/2023 171 by Molly Pond RN Outcome: [facility]ing as [id number] Problem: Pain Goal: Control of pain [...] Adequate for discharge Outcome: Progressing as expected Hannysilvia Moran [id number] 16:51:01 Problem: Pain Goal: Control of pain [...] Adequate for discharge Outcome: Progressing as expected [place] [id number] 15:24:48 Report given to HALLE Barnesbuilding equipment operator Audrey Hitchcock [place] [id number] 12:06:08 Patient states that she feels short of breath. T Fortino Morales [place] [id number] 12:04:19 Patients states "I have a cold, I have a cough and it hurts in my back up to my head. And I am chaffed between my legs. I need some antibiotics." Patients respirations are labored with accessory muscle usage, oxygen saturation 82% on room air. T [place] [id number] 12:34:58 PT D/C home. GCS15, VS stable, no ataxia noted. Given two prescriptions and D/C paperwork. S/S relieved at this time. Pt ambulatory at time of discharge. Pt educated on leg pain, med usage, follow up care, s/s worsening condition. Pt verbalized understanding. ER TECHNICIAN Susan Valdez [facility] [id number] 10:40:01 Patient here for pain in the left leg, states after she walks she gets tired fast; rash on her back and needs a refill on her albuterol inhaler. ER TECHNICIAN Fortino Morales [facility] [id number] 14:30:17 Pt given printed and verbal discharge [...] gait, in no apparent distress, Dayna Babcock [facility] [id number] 11:41:55 Pt arrived via transit bus with c/o back pain s/p fall 1 week ago. States she has not medicated forthe pain. Pt is also requesting refills of her nasal spray and inhaler. Rosalia Burton [facility]
[2024-04-16] MEDS ORDERED: ALBUTEROL 2.5 MG/3 ML NEB SOL ONE (23:38)
[2024-04-16] MEDS ORDERED: METHYLPREDNISOLONE 125 MG INJ ONE (23:39)
[2024-04-16] MEDS ORDERED: HYDROCODONE/APAP 5/325 MG TAB ONE (23:39)
[2024-04-16 23:46] LABS: Absolute Basophils 0.1 K/uL (0-0.5); Absolute Lymphocytes (CBC) 0.6 K/uL (0.7-4.9); Absolute Monocytes 0.5 K/uL (0.1-1.3); Absolute Neutrophil 4.1 K/uL (1.8-8.0); Basophils % 1.3 % (0-1.3); Eosinophils % 0.6 % (0-4.4); Hematocrit 40.5 % (36.0-45.0); Hemoglobin 13.9 g/dL (12.0-15.0); Lymphocytes % 11.4 % (15.3-44.8); MCH 34.8 pg (27.0-35.0); MCHC 34.4 g/dL (32.0-36.0); MCV 101.1 fL (80-100); MPV 9.1 fL (7.6-11.3); Neutrophils % 76.7 % (41.7-73.7); Nucleated Red Blood Cells % 0.1 % (0-0); Platelets 224 thou/uL (152-406); RBC Red Blood Cell Count 4.01 M/uL (3.86-4.86); Red Cell Distribution Width 13.9 % (12.1-15.2)
[2024-04-16 23:55] LABS: PT Prothrombin Time 11.6 SECONDS (10.0-13.0); Protime INR 1.02
[2024-04-17 00:10] LABS: ALT/SGPT 68 U/L (13-56); AST/SGOT 58 U/L (15-37); Albumin 3.2 g/dL (3.4-5.0); Albumin/Globulin Ratio 0.6 (1.1-1.8); Alkaline Phosphatase 124 U/L (45-117); Anion Gap 10.7 mEq/L (5.0-15.0); BUN Blood Urea Nitrogen 23 mg/dL (7-18); Bicarbonate 28 mEq/L (21-32); Bilirubin Direct < 0.2 mg/dL (0-0.2); Bilirubin Indirect, Calculated 0.2 mg/dL (0.2-0.8); Bilirubin Total 0.4 mg/dL (0.2-1.0); Glomerular Filtration Rate 46 ml/min (=/>90); Glucose Level 94 mg/dL (74-106); Magnesium 1.9 mg/dL (1.6-2.4); NT PRO-BNP 2716 pg/mL (<125); Potassium 3.7 mEq/L (3.5-5.1); Protein, Total 8.2 g/dL (6.4-8.2); Sodium Level 142 mEq/L (136-145)
[2024-04-17 00:39] LABS: Specific Gravity 1.014 (1.005-1.030); Sqamous Epithelial <5 /HPF (None Seen); Urine Bacteria None Seen /HPF (<20); Urine Bilirubin NEGATIVE (Negative); Urine Blood Trace (Negative); Urine Clarity Clear (Clear); Urine Color Colorless (Yellow); Urine Culture Reflex Order NOT NEEDED; Urine Glucose NEGATIVE (Negative); Urine Ketones NEGATIVE (Negative); Urine Micro Reflex YN NO BILL MICROSCOPIC; Urine Nitrite NEGATIVE (Negative); Urine Protein 2+ (Negative); Urine Urobilinogen Normal (Normal); Urine WBC <5 /HPF (<5)
--- NOTE | 2024-04-17 03:01 | ER ---
Nurse's Notes [facility] Name: Charito Michael Age: 59 yrs Sex: Female : 1965 Arrival Date: 04/16/2024 Time: 22:55 Bed 5 Private MD: Diagnosis: Congestive heart failure with acute exacerbation,;Elevated troponin,;COPD/ Chronic obstructive pulmonary disease with (acute) exacerbation Presentation: 04/16 23:05 Chief complaint: EMS states: Sudden onset difficulty breathing starting 1 hour ago. vc1 Symptoms relieved with non rebreather. Coronavirus screen: Client denies travel out of the [place] in the last 14 days. At this time, the client does not indicate any symptoms associated with coronavirus-19. Coronavirus screen: runny nose, shortness of breath, Client presents with at least one sign or symptom that may indicate coronavirus-19. Ebola Screen: Patient negative for fever greater than or equal to 101.5 degrees Fahrenheit, and additional compatible Ebola Virus Disease symptoms Patient denies exposure to infectious person. Patient denies travel to an Ebola-affected area in the 21 days before illness onset. No symptoms or risks identified at this time. Initial Sepsis Screen: Does the patient meet any 2 criteria? No. Patient's initial sepsis screen is negative. Does the patient have a suspected source of infection? No. Patient's initial sepsis screen is negative. Risk Assessment: Do you want to hurt yourself or someone else? Patient reports no desire to harm self or others. Note Pt uses 3L O2 via NC at home. Onset of symptoms was April 16, 2024 at 22:00. Care prior to arrival: Oxygen administered. via a non-rebreather mask. Activity prior to arrival: None. Mechanism of Injury: No Mechanism of Injury. Transition of care: patient was not received from another setting of care. 23:05 Method Of Arrival: EMS: [facility] vc1 23:05 Acuity: GIULIANO 3 vc1 Triage Assessment: 23:11 General: Appears distressed, ill, slender, Behavior is calm, cooperative, appropriate vc1 for age. Pain: Complains of pain in low back area Pain does not radiate. Pain currently is 5 out of 10 on a pain scale. Quality of pain is described as sharp, Is continuous, Aggravated by repositioning. EENT: No deficits noted. No signs and/or symptoms were reported regarding the EENT system. Reports nasal congestion. Neuro: Level of Consciousness is awake, alert, obeys commands, Oriented to person, place, time, situation, Appropriate for age. Cardiovascular: Heart tones S1 S2 present Capillary refill < 3 seconds Patient's skin is warm and dry. Respiratory: Airway is patent Respiratory effort is even, unlabored, Respiratory pattern is regular, symmetrical. GI: No deficits noted. No signs and/or symptoms were reported involving the gastrointestinal system. : No deficits noted. No signs and/or symptoms were reported regarding the genitourinary system. Derm: Skin is intact, Skin is dry, Skin is normal, Skin temperature is cool. Musculoskeletal: Circulation, motion, and sensation intact. Range of motion: intact in all extremities, Reports pain in low back area. Historical: - Allergies: 23:09 NKA; vc1 - PMHx: 23:09 Back pain; seasonal allergies; CHF; Chronic pain; COPD; HIV; Hypercholesterolemia; vc1 Hypertension; - PSHx: 23:09 Total abdominal hysterectomy; vc1 - Immunization history:: Client reports receiving the 2nd dose of the Covid vaccine, Flu vaccine is up to date. - Infectious Disease History:: Denies. - Social history:: Smoking status: Patient denies any tobacco usage or history of. - Family history:: not pertinent. Screenin:10 [facility] ED Fall Risk Assessment (Adult) History of falling in the last 3 months, vc1 including since admission No falls in past 3 months (0 pts) Confusion or Disorientation No (0 pts) Intoxicated or Sedated No (0 pts) Impaired Gait Yes (1 pt) Mobility Assist Device Used Yes (1 pt) Altered Elimination No (0 pt) Score/Fall Risk Level 0 - 2 = Low Risk Oriented to surroundings, Maintained a safe environment, Educated pt \T\ family on fall prevention, incl call for assistance when getting out of bed, Assessed \T\ reinforced patient's understanding of fall precautions, Hourly rounding (assess needs \T\ fall precautionary measures) done. Abuse screen: Denies threats or abuse. Nutritional screening: No deficits noted. Tuberculosis screening: No symptoms or risk factors identified. Assessment: 23:36 General: See triage assessment. vc1 04/17 00:12 Reassessment: Patient appears in no apparent distress at this time. Patient and/or vc1 family updated on plan of care and expected duration. Pain level reassessed. Patient states symptoms have improved. 02:04 Reassessment: Patient appears in no apparent distress at this time. No changes from vc1 previously documented assessment. Patient and/or family updated on plan of care and expected duration. Pain level reassessed. Vital Signs: 04/16 23:05 BP 148 / 82; Pulse 73; Resp 23; Temp 97.7; Pulse Ox 98% on 3 lpm NC; Weight 57 kg; vc1 Height 5 ft. 3 in. ; 04/17 00:00 BP 131 / 88; Pulse 70; Resp 20; Pulse Ox 95% on 3 lpm NC; vc1 01:00 BP 131 / 87; Pulse 65; Resp 15; Pulse Ox 93% on 3 lpm NC; vc1 02:00 BP 124 / 79; Pulse 63; Resp 14; Pulse Ox 95% on 3 lpm NC; vc1 03 23:05 Body Mass Index 22.26 (57.00 kg, 160.02 cm) vc1 Alma Coma Score: 03:01 Eye Response: spontaneous(4). Motor Response: obeys commands(6). Verbal Response: sp4 oriented(5). Total: 15. ED Course: 04/16 23:00 Provided Education on: call light. vc1 23:04 Patient arrived in ED. vk 23:05 Reyes Molina MD is Attending Physician. sp4 23:05 Blanca Wright RN is Primary Nurse. vc1 23:09 Triage completed. vc1 23:10 Arm band placed on right wrist. vc1 23:10 Patient has correct armband on for positive identification. Bed in low position. Call vc1 light in reach. Side rails up X2. credit portfolio manager on. Pulse ox on. NIBP on. 23:35 Inserted saline lock: 22 gauge in right antecubital area, using aseptic technique. vc1 Blood collected. Flushed with 10 mL NS. Oxygen administration via nasal cannula \T\ 4L/min. 23:36 PT-INR Sent. vc1 23:36 Troponin HS Sent. vc1 23:36 NT PRO-BNP Sent. vc1 23:36 Magnesium Sent. vc1 23:36 LFT's Sent. vc1 23:36 CBC with Diff Sent. vc1 23:36 Basic Metabolic Panel Sent. vc1 23:39 XRAY Chest (1 view) In Process Unspecified. EDMS 23:57 Urinalysis W/Microscopic Sent. vc1 04/17 02:06 No provider procedures requiring assistance completed. vc1 03:01 Carissa Howard MD is Hospitalizing Provider. sp4 03:30 Patient admitted, IV remains in place. vc1 Administered Medications: 04/16 23:56 Drug: HYDROcodone-acetaminophen PO 5 mg-325 mg 2 tabs PO once Route: PO; vc1 04/17 02:06 Follow up: Response: No adverse reaction; Marked relief of symptoms vc1 04/16 23:57 Drug: MethylPrednisoLONE IVP 125 mg IVP once Route: IVP; Site: right antecubital; vc1 04/17 02:06 Follow up: Response: No adverse reaction; Marked relief of symptoms vc1 04/16 23:57 Drug: Albuterol Inhalation 1.25 mg Inhalation once Route: Inhalation; vc1 04/17 04:21 Drug: Furosemide IVP 20 mg IVP once; give over 2 minutes Route: IVP; Site: right vc1 antecubital; 04:21 Drug: Aspirin PO Chewable Tablet 324 mg PO once; 81 mg tablets x 4 Route: PO; vc1 04:21 Drug: Enoxaparin Sub-Q 60 mg Sub-Q once Route: Sub-Q; Site: abdomen; vc1 Medication: 04/16 23:11 VIS not applicable for this client. vc1 Outcome: 04/17 03:01 Decision to Hospitalize by Provider. sp4 03:30 Admitted to ER Hold. Please see [facility] for further documentation. vc1 03:30 Condition: stable 03:30 Instructed on the need for admit, 11:18 Patient left the ED. iw Signatures: Dispatcher [employer] EDMS Kelly Deleon RN RN iw Blanca Wright RN RN vc1 Reyes Molina MD MD sp4 Sara Amador Corrections: (The following items were deleted from the chart) 04/16 23:11 23:05 BP 148 / 82; Pulse 73bpm; Resp 23bpm; Pulse Ox 98%; Temp 97.7F; 57 kg; Height 5 vc1 ft. 3 in.; BMI: 22.2; vc1
--- NOTE | 2024-04-17 03:01 | EDPHYS ---
Physician Documentation [facility] Name: Charito Michael Age: 59 yrs Sex: Female : 1965 Arrival Date: 04/16/2024 Time: 22:55 Bed 5 Private MD: ED Physician Reyes Molina HPI: 04/16 23:06 This 59 yrs old Black Female presents to ER via Unassigned with complaints of Breathing sp4 Difficulty. 04/17 02:50 Has history of back pain, CHF, chronic pain, COPD, HIV, PCP pneumonia, sp4 hypercholesterolemia, hypertension, CAD with stent, seasonal allergies. History of oxygen dependency. Presents with EMS for worsening shortness of breath and chest pain. Medications include amitriptyline, fluticasone, nystatin, zolpidem, alprazolam, ibuprofen, nystatin, vancomycin, albuterol as needed, atorvastatin calcium, gabapentin 3 times daily, ipratropium, prednisone,. Historical: - Allergies: 04/16 23:09 NKA; vc1 - PMHx: 23:09 Back pain; seasonal allergies; CHF; Chronic pain; COPD; HIV; Hypercholesterolemia; vc1 Hypertension; - PSHx: 23:09 Total abdominal hysterectomy; vc1 - Immunization history:: Client reports receiving the 2nd dose of the Covid vaccine, Flu vaccine is up to date. - Infectious Disease History:: Denies. - Social history:: Smoking status: Patient denies any tobacco usage or history of. - Family history:: not pertinent. ROS: 04/17 02:53 Constitutional: Negative for fever, chills, and weight loss, positive for chest pain sp4 and shortness of breath All other systems are negative, Exam: 03:01 Constitutional: This is a well developed, well nourished patient who is awake, alert, sp4 and in no acute distress. Head/Face: Normocephalic, atraumatic. Eyes: Pupils equal round and reactive to light, extra-ocular motions intact. Lids and lashes normal. Conjunctiva and sclera are not injected. Cornea within normal limits. Periorbital areas with no swelling, redness, or edema. ENT: Nares patent. No nasal discharge, no septal abnormalities noted. Tympanic membranes are normal and external auditory canals are clear. Oropharynx with no redness, swelling, or masses, exudates, or evidence of obstruction, uvula midline. Mucous membranes moist. Neck: Trachea midline, no thyromegaly or masses palpated, and no cervical lymphadenopathy. Supple, full range of motion without nuchal rigidity, or vertebral point tenderness. Chest/axilla: Normal chest wall appearance and motion. Nontender with no deformity. No lesions are appreciated. Cardiovascular: Regular rate and rhythm with a normal S1 and S2. No gallops, murmurs, or rubs. Normal PMI, no JVD. No pulse deficits. Respiratory: Lungs have equal breath sounds bilaterally, clear to auscultation and percussion. No rales, rhonchi or wheezes noted. No increased work of breathing, no retractions or nasal flaring. Abdomen/GI: Soft, with normal bowel sounds. No distension or tympany. No guarding or rebound. No evidence of tenderness throughout. Back: No spinal tenderness. No costovertebral tenderness. Skin: Warm, dry with normal turgor. Normal color with no rashes, no lesions, and no evidence of cellulitis. MS/ Extremity: Pulses equal, no cyanosis. Neurovascular intact. Full, normal range of motion. Neuro: Awake and alert, GCS 15, oriented to person, place, time, and situation. Cranial nerves II-XII grossly intact. Motor strength 5/5 in all extremities. Sensory grossly intact. Psych: Awake, alert, with orientation to person, place and time. Behavior, mood, and affect are within normal limits 03:08 ECG was reviewed by the Attending Physician. EKG at 2347 normal sinus rhythm rate sp4 69, biatrial enlargement Vital Signs: 04/16 23:05 BP 148 / 82; Pulse 73; Resp 23; Temp 97.7; Pulse Ox 98% on 3 lpm NC; Weight 57 kg; vc1 Height 5 ft. 3 in. ; 04/17 00:00 BP 131 / 88; Pulse 70; Resp 20; Pulse Ox 95% on 3 lpm NC; vc1 01:00 BP 131 / 87; Pulse 65; Resp 15; Pulse Ox 93% on 3 lpm NC; vc1 02:00 BP 124 / 79; Pulse 63; Resp 14; Pulse Ox 95% on 3 lpm NC; vc1 04/16 23:05 Body Mass Index 22.26 (57.00 kg, 160.02 cm) vc1 Joseph Coma Score: 03:01 Eye Response: spontaneous(4). Motor Response: obeys commands(6). Verbal Response: sp4 oriented(5). Total: 15. MDM: 04/16 23:09 Medical Screening Exam initiated sp4 04/17 02:50 ED course: EXAM: XR Chest, 1 View CLINICAL HISTORY: The patient is 59 years old and is sp4 Female; CHEST PAIN TECHNIQUE: Frontal view of the chest. COMPARISON: No relevant prior studies available. FINDINGS: Lungs: Mildly prominent interstitial markings. No consolidation. Pleural space: Unremarkable. No pneumothorax. Heart: Unremarkable. Mediastinum: Unremarkable. Normal mediastinal contour. Bones/joints: No acute findings. IMPRESSION: Mildly prominent interstitial markings. No consolidation. Electronically signed by: Riley Gaspar MD 04/16/2024. 03:02 Differential diagnosis: asthma, pneumonia, Pneumothorax Psychogenic pulmonary edema. sp4 Data reviewed: vital signs, nurses notes, EMS record, lab test result(s), EKG, radiologic studies. ED course: Patient stable for admission, troponin slightly above baseline.. 03:06 ED course: Patient is stable for admission.. 4 04/16 23:06 Order name: Basic Metabolic Panel; Complete Time: 02:46 4 04/16 23:06 Order name: CBC with Diff; Complete Time: 02:46 4 04/16 23:06 Order name: LFT's; Complete Time: 02:46 4 04/16 23:06 Order name: Magnesium; Complete Time: 02:46 4 04/16 23:06 Order name: NT PRO-BNP; Complete Time: 02:46 4 04/16 23:06 Order name: PT-INR; Complete Time: 02:46 sp4 04/16 23:06 Order name: Troponin HS; Complete Time: 02:46 4 04/16 23:30 Order name: Urinalysis W/Microscopic; Complete Time: 02:46 4 04/17 04:18 Order name: Lipid Profile EDMS 04/17 04:18 Order name: Lipid Profile EDMS 04/17 04:18 Order name: Troponin High Sensitivity EDMS 04/17 04:18 Order name: Troponin High Sensitivity EDMS 04/17 04:18 Order name: Troponin High Sensitivity EDMS 04/17 04:18 Order name: Troponin High Sensitivity EDMS 04/17 04:18 Order name: Troponin High Sensitivity EDMS 04/17 05:10 Order name: Glucose, Ancillary Testing EDMS 04/17 09:34 Order name: Troponin High Sensitivity EDMS 04/16 23:06 Order name: XRAY Chest (1 view) 4 04/17 04:18 Order name: Echo with Doppler EDMS 04/16 23:06 Order name: Cardiac monitoring; Complete Time: 23:13 sp4 04/16 23:06 Order name: EKG - Nurse/Tech; Complete Time: 23:57 sp4 04/16 23:06 Order name: IV Saline Lock; Complete Time: 23:36 sp4 04/16 23:06 Order name: Labs collected and sent; Complete Time: 23:36 sp4 04/16 23:06 Order name: O2 Per Protocol; Complete Time: 23:13 sp4 04/16 23:06 Order name: O2 Sat Monitoring; Complete Time: 23:13 sp4 EC/06 23:47 Rate is 69 beats/min. Rhythm is regular, Normal Sinus Rhythm. QRS [place] is Normal. [place] sp4 interval is normal. QRS interval is normal. QT interval is normal. No Q waves. T waves are Normal. No ST changes noted. Clinical impression: No evidence of ischemia. Interpreted by me. Reviewed by me. Administered Medications: 23:56 Drug: HYDROcodone-acetaminophen PO 5 mg-325 mg 2 tabs PO once Route: PO; vc1 04/17 02:06 Follow up: Response: No adverse reaction; Marked relief of symptoms vc1 04/16 23:57 Drug: MethylPrednisoLONE IVP 125 mg IVP once Route: IVP; Site: right antecubital; vc1 04/17 02:06 Follow up: Response: No adverse reaction; Marked relief of symptoms vc1 04/16 23:57 Drug: Albuterol Inhalation 1.25 mg Inhalation once Route: Inhalation; vc1 04/17 04:21 Drug: Furosemide IVP 20 mg IVP once; give over 2 minutes Route: IVP; Site: right vc1 antecubital; 04:21 Drug: Aspirin PO Chewable Tablet 324 mg PO once; 81 mg tablets x 4 Route: PO; vc1 04:21 Drug: Enoxaparin Sub-Q 60 mg Sub-Q once Route: Sub-Q; Site: abdomen; vc1 Disposition Summary: 04/17/24 03:01 Hospitalization Ordered Notes: Hospitalization Status: Observation sp4 Provider: Carissa Howard sp4 Condition: Fair sp4 Problem: new sp4 Symptoms: have improved sp4 Bed/Room Type: Standard sp4 Location: [facility] ER HOLD(04/17/24 03:36) vk Room Assignment: ERHOLD-(04/17/24 03:36) vk Diagnosis - Congestive heart failure with acute exacerbation, sp4 - Elevated troponin, sp4 - COPD/ Chronic obstructive pulmonary disease with (acute) exacerbation sp4 Forms: - Medication Reconciliation Form sp4 - SBAR form sp4 - Leadership Thank You Letter sp4 Signatures: Dispatcher [employer] EDMS Blanca Wright RN RN vc1 Reyes Molina MD MD sp4 Sara Amador Corrections: (The following items were deleted from the chart) 04/16 23:07 23:07 BASIC METABOLIC PANEL+C.LAB.BRZ ordered. EDMS EDMS 23:07 23:07 CBC+H.LAB.BRZ ordered. EDMS EDMS 23:07 23:07 HEPATIC FUNCTION+C.LAB.BRZ ordered. EDMS EDMS 23:07 23:07 MAGNESIUM+C.LAB.BRZ ordered. EDMS EDMS 23:07 23:07 PROBNP+C.LAB.BRZ ordered. EDMS EDMS 23:07 23:07 PROTIME (+INR)+COAG.LAB.BRZ ordered. EDMS EDMS 23:07 23:07 Troponin High Sensitivity+C.LAB.BRZ ordered. EDMS EDMS 23:07 23:07 Chest Single View+RAD.RAD.BRZ ordered. EDMS EDMS 04/17 03:36 03:01 Telemetry/MedSurg (observation) sp4 vk 03:36 03:01 sp4 vk
[2024-04-17] MEDS ORDERED: ASPIRIN 81 MG CHEWABLE TABLET ONE (03:26)
[2024-04-17] MEDS ORDERED: ENOXAPARIN 60 MG/0.6 ML SQ ONE (03:27)
[2024-04-17] MEDS ORDERED: FUROSEMIDE 20 MG/ 2ML VIAL ONE (03:27)
--- NOTE | 2024-04-17 04:10 | P.HP ---
Patient History Date of Service: 04/17/24 History of Present Illness: 59-year-old female with a past medical history of CHF, chronic pain, COPD on 4 L nasal cannula, PCP pneumonia, HIV, hypercholesterolemia, CAD with stent, hypertension presenting with shortness of breath for the past day. She denies any fevers, chills, chest pain. In the ED she was given a dose of steroids, Lasix, and breathing treatment. Blood work revealed elevated troponin. I have been asked to admit her to the hospital for further trending of her troponin. Allergies No Known Drug Allergies Allergy (Verified 03/20/24 23:01) Unknown Home Medications: Nystatin 5 ml PO QID 01/11/18 Zolpidem Tartrate 10 mg PO BEDTIME PRN 01/11/18 ALPRAZolam [Xanax*] 1 mg PO TID #90 tab 02/22/24 Ibuprofen [Ibu] 600 mg PO BID #60 02/22/24 Albuterol Neb [Proventil 0.083% Neb Soln] 1.25 mg NEB DAILY 30 Days #30 amp 03/21/24 Amitriptyline HCl 100 mg PO BEDTIME 30 Days #30 tab 03/21/24 Atorvastatin Calcium [Lipitor] 40 mg PO BEDTIME 30 Days #30 tab 03/21/24 Gabapentin 100 mg PO TID #90 03/21/24 Ipratropium Neb [Atrovent*] 0.5 mg NEB DAILY 30 Days #30 amp 03/21/24 Nebulizer Accessories [Adult Aerosol Mask] 1 each MC DAILY 30 Days #1 ea 03/21/24 Nebulizer and Compressor [[place] Choice Nebulizer] 1 each MC DAILY 30 Days #1 ea 03/21/24 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 -: safety pin removal from right lung Psychosocial/ Personal History: Pt lives at home alone - Family History Father -: Heart disease Notes: of [place] Sister -: Heart disease Notes: of [place] - Social History Alcohol use: No CD- Drugs: No Caffeine use: Yes Review of Systems 10-point ROS is otherwise unremarkable Respiratory: Shortness of Breath Physical Examination - Physical Exam General: Alert, In no apparent distress HEENT: Normocephalic Neck: Supple Respiratory: Clear to auscultation bilaterally Cardiovascular: Edema Gastrointestinal: Normal bowel sounds Musculoskeletal: No clubbing Integumentary: No rashes Neurological: Normal speech Lymphatics: No axilla or inguinal lymphadenopathy - Studies Laboratory Data (last 24 hrs) 04/16/24 04/16/24 04/16/24 23:30 23:30 23:30 WBC 5.40 Hgb 13.9 Hct 40.5 Plt Count 224 PT 11.6 INR 1.02 Sodium 142 Potassium 3.7 BUN 23 H Creatinine 1.32 H Glucose 94 Magnesium 1.9 Total Bilirubin 0.4 AST 58 H ALT 68 H Alkaline Phosphatase 124 H Assessment and Plan - Plan Shortness of breath Elevated troponin CHF exacerbation COPD exacerbation HIV Hypertension Hypercholesterolemia CAD with stent History of pneumocystis pneumonia Trend troponin, echocardiogram Dose with steroid, Lasix Continue breathing treatment Continue aspirin and statin HIV, CD4 count, consider infectious disease consult DVT prophylaxis with heparin - Advance Directives Does patient have a Living Will: No Does patient have a Durable POA for Healthcare: No
[2024-04-17] MEDS ORDERED: NITROGLYCERIN 0.4 MG/TAB SL PRN (04:12)
[2024-04-17] MEDS ORDERED: ZOLPIDEM TARTRATE 5 MG TABLET PO PRN (04:12)
[2024-04-17] MEDS ORDERED: ACETAMINOPHEN 500 MG TAB PO PRN (04:12)
[2024-04-17 04:50] VITALS: BMI 22.2
--- NOTE | 2024-04-17 05:46 | RAD REPORT ---
EXAM: XR Chest, 1 View CLINICAL HISTORY: The patient is 59 years old and is Female; CHEST PAIN TECHNIQUE: Frontal view of the chest. COMPARISON: No relevant prior studies available. FINDINGS: Lungs: Mildly prominent interstitial markings. No consolidation. Pleural space: Unremarkable. No pneumothorax. Heart: Unremarkable. Mediastinum: Unremarkable. Normal mediastinal contour. Bones/joints: No acute findings. IMPRESSION: Mildly prominent interstitial markings. No consolidation. Electronically signed by: Riley Gaspar MD 04/16/2024 11:54 PM [facility] 8 Due to temporary technical issues with the PACS/[employer] reporting system, reports are being renuka d by the in-house radiologist without review as a courtesy to ensure prompt reporting the interpreting radiologist is fully responsible for the content of the report. Transcribed Date/Time: 04/17/2024 5:46 AM
[2024-04-17 05:59] LABS: Troponin High Sensitivity 182.7 pg/mL (<58.9)
[2024-04-17 08:53] VITALS: O2SAT 99
[2024-04-17 08:54] VITALS: BP 135/84; TEMP 97.6
[2024-04-17] MEDS ORDERED: HEPARIN 5000 UNIT/ML 1 ML VIAL ONE (08:57)
[2024-04-17] MEDS ORDERED: ALPRAZOLAM 1 MG TABLET ONE (08:58)
[2024-04-17] MEDS ORDERED: FLUTICASONE PROPIONATE 100 MCG IH SCH (09:00)
[2024-04-17] MEDS: HEPARIN 5000 UNIT/ML 1 ML VIAL SQ SCH (09:00)
[2024-04-17] MEDS: ALPRAZOLAM 1 MG TABLET PO SCH (09:00)
[2024-04-17] MEDS ORDERED: GABAPENTIN 100 MG CAP PO SCH (09:00)
[2024-04-17] MEDS ORDERED: ATORVASTATIN 40 MG TAB PO SCH (21:00)
--- NOTE | 2024-04-19 03:38 | P.DS ---
Discharge Date: 04/17/24 Disposition: ROUTINE DISCHARGE Discharge Condition: GOOD Brief History of Present Illness: 59-year-old female with a past medical history of CHF, chronic pain, COPD on 4 L nasal cannula, PCP pneumonia, HIV, hypercholesterolemia, CAD with stent, hypertension presenting with shortness of breath for the past day. She denies any fevers, chills, chest pain. In the ED she was given a dose of steroids, Lasix, and breathing treatment. Blood work revealed elevated troponin. I have been asked to admit her to the hospital for further trending of her troponin. Hospital Course: Patient's workup was unremarkable. Patient's recent cardiac workup was unremarkable. Patient had a cardiac catheterization with normal coronaries. Very unlikely to have a significant coronary artery disease. Patient with nonischemic cardiomyopathy. Outpatient cardiac follow-up with no further cardiac workup needed inpatient. Vital Signs/Physical Exam: Temp Pulse Resp BP Pulse Ox 97.6 F 72 18 135/84 99 04/17/24 08:00 04/17/24 08:00 04/17/24 08:00 04/17/24 08:00 04/17/24 08:00 General: Alert, In no apparent distress, Oriented x3 Laboratory Data at Discharge: WBC 5.40 thou/uL (4.3-10.9) 04/16/24 23:30 Hgb 13.9 g/dL (12.0-15.0) 04/16/24 23:30 Hct 40.5 % (36.0-45.0) 04/16/24 23:30 Plt Count 224 thou/uL (152-406) 04/16/24 23:30 PT 11.6 SECONDS (10.0-13.0) 04/16/24 23:30 INR 1.02 04/16/24 23:30 Sodium 142 mEq/L (136-145) 04/16/24 23:30 Potassium 3.7 mEq/L (3.5-5.1) 04/16/24 23:30 BUN 23 mg/dL (7-18) H 04/16/24 23:30 Creatinine 1.32 mg/dL (0.55-1.02) H 04/16/24 23:30 Glucose 94 mg/dL (74-106) 04/16/24 23:30 Magnesium 1.9 mg/dL (1.6-2.4) 04/16/24 23:30 Total Bilirubin 0.4 mg/dL (0.2-1.0) 04/16/24 23:30 AST 58 U/L (15-37) H 04/16/24 23:30 ALT 68 U/L (13-56) H 04/16/24 23:30 Alkaline Phosphatase 124 U/L (45-117) H 04/16/24 23:30 Triglycerides 37 mg/dL (<150) 04/17/24 05:06 Cholesterol 174 mg/dL (<200) 04/17/24 05:06 HDL Cholesterol 109 mg/dL (40-60) H 04/17/24 05:06 Cholesterol/HDL Ratio 1.60 04/17/24 05:06 Home Medications: Nystatin 5 ml PO QID PRN 01/11/18 Zolpidem Tartrate 10 mg PO BEDTIME PRN 01/11/18 ALPRAZolam [Xanax*] 1 mg PO TID #90 tab 02/22/24 Albuterol Neb [Proventil 0.083% Neb Soln] 1.25 mg NEB DAILY 30 Days #30 amp 03/21/24 Amitriptyline HCl 100 mg PO BEDTIME 30 Days #30 tab 03/21/24 Atorvastatin Calcium [Lipitor] 40 mg PO BEDTIME 30 Days #30 tab 03/21/24 Gabapentin 100 mg PO TID #90 03/21/24 Ipratropium Neb [Atrovent*] 0.5 mg NEB DAILY 30 Days #30 amp 03/21/24 Nebulizer Accessories [Adult Aerosol Mask] 1 each MC DAILY 30 Days #1 ea 03/21/24 Nebulizer and Compressor [[place] Choice Nebulizer] 1 each MC DAILY 30 Days #1 ea 03/21/24 Amlodipine [Norvasc*] 10 mg PO DAILY #30 tab 04/17/24 Aspirin Chewable [Aspirin Chewable*] 1 tab PO DAILY 04/17/24 Baclofen 5 mg PO BID 04/17/24 Bictegrav/Emtricit/Tenofov Ala [Biktarvy 50-200-25 mg Tablet] 1 tab PO DAILY 04/17/24 Doxepin HCl [Sinequan*] 10 mg PO BEDTIME 04/17/24 Duloxetine HCl 60 mg PO 04/17/24 Fluticasone/Umeclidin/Vilanter [Trelegy Ellipta 200-62.5-25] 1 puff PO DAILY 04/17/24 Hydrocodone 7.5/APAP 325 [[place]iver 7.5/325 mg] 1 tab PO Q12H PRN #30 tab 04/17/24 Losartan/Hydrochlorothiazide [Losartan-Hctz 100-12.5 mg Tab] 1 tab PO DAILY 04/17/24 Melatonin 10 mg PO BEDTIME PRN PRN #30 cap 04/17/24 Metoprolol Tartrate [Lopressor*] 25 mg PO BID #60 tab 04/17/24 Zolpidem Tartrate [Ambien] 5 mg PO BEDTIME PRN PRN #20 tab 04/17/24 New Medications: Zolpidem Tartrate [Ambien] 5 mg PO BEDTIME PRN PRN #20 tab PRN Reason: Insomnia Metoprolol Tartrate [Lopressor*] 25 mg PO BID #60 tab Melatonin 10 mg PO BEDTIME PRN PRN #30 cap PRN Reason: Insomnia Hydrocodone 7.5/APAP 325 [[place] 7.5/325 mg] 1 tab PO Q12H PRN #30 tab PRN Reason: Pain Amlodipine [Norvasc*] 10 mg PO DAILY #30 tab Physician Discharge Instructions: -DC IV and DC home -Follow-up with PCP in 1 to 2 weeks -Follow-up with Cardiology in 1 to 2 weeks -Please call Dr. Hylton at [phone] if any questions regarding hospital stay -Please call nursing station at [phone] if any nursing or medication questions -Return to the emergency room if symptoms worsen Diet: AHA Activity: Fall precautions Followup: ANISH FLORES [Primary Care Provider] - Time spent managing pt's care (in minutes): 35
== END 2024-04-17 11:19 | disposition home or self-care (01) ==
LOC: ER 22:55 → ERHOLD 04-17 04:12
PROVIDERS: ADMIT Family Medicine; ATTEND Hospitalist
DX: I50.9 Heart failure, unspecified (principal); J44.1 Chronic obstructive pulmonary disease with (acute) exacerbation; R79.89 Other specified abnormal findings of blood chemistry; R06.02 Shortness of breath; G89.29 Other chronic pain; E78.00 Pure hypercholesterolemia, unspecified; I25.10 Atherosclerotic heart disease of native coronary artery without angina pectoris; B20 Human immunodeficiency virus [HIV] disease; Z99.81 Dependence on supplemental oxygen; Z95.5 Presence of coronary angioplasty implant and graft
CPT/HCPCS: 93005; 85025; 81001; 80048; 36415; 83735; 85610; 80061; 82947; 80076; 84484 ×3; 83880; 87535; 71045; 96375; 96372; 96374; 99285; J1644; J1650; J1940; J7613; J2919; G0378 ×2

== ENCOUNTER 2024-04-19 01:00 | Inpatient (IN) | payer OTHER ==
--- OUTSIDE RECORDS SUMMARY | 2024-04-19 01:41 | XMS REPORT | Continuity of Care Document ---
Author Name Unknown Address [address] [facility]. 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 Name Role Phone Delfino Schumacher [facility] Physician Zaria Orellana Attending Clinician Unavail able Doctor Unassigned, [place] Attending Clinician U Lianet Morin Attending Clinician [phone] Lj Paredes RN Attending Clinician Unavail able KVNG ROBERSON Attending Clinician Unavailable Anyi Hearn NP Attending Clinician [phone] Kvng Roberson DO Attending Clinician GASTON HOBBS Attending Clinician Unavailable Gaston Hobbs MD Attending Clinician [phone] Kasandra Cha Attending Clinician LEE HENDERSON Attending Clinician Unavailab CLARITZA Booth Attending Clinician Unavail able Doctor Unassigned, [place] Attending Clinician U iván Almaguer RN, Jeanine Jones Attending Clinician UnaGuerline Hemphill MD Attending Clinician [phone] Guero Pantoja Attending Clinician [phone] GUERO MARTINEZ Attending Clinician Unavailable Jenaie NERI, Osman Loya Attending Clinician Unavaila harvey RODRIGUEZ Attending Clinician Unavailable Dean_Robert Attending Clinician Unavailable APOLINAR WEBER Attending Clinician Unavailable Pgy2 Attending Clinician Unavailable Apolinar Weber MD Attending Clinician + [phone] Enedina Mccarty MD Attending Clinician [phone] BILLY VALERIO Attending Clinician Unavailabl Toby Roe MD Attending Clinician [phone] Delores Garcia MD, Tressa Schwartz Attending Clinician +[phone] Billy Valerio MD Attending Clinician + [phone] Evette Dunn MA Attending Clinician Unavailab KENNEDI Pop Attending Clinician Unavailable Eduarda GLORIA, Kennedi Islas Attending Clinician + [phone] Mikael Quiroz Attending Clinician + [phone] LJ LIANG Attending Clinician Unavailable Lj Mcguire Attending Clinician + [phone] MARGARET NUNEZ Attending Clinician Unavailab Margaret Rodgers DO Attending Clinician [phone] Bonny Morris MD K.H. Attending Clinician + [phone] BONNY MORRIS K.HAg Attending Clinician Unavaila Terri Clemente Attending Clinician [phone] Dawn Mendoza Attending Clinician [phone] Sammi Attending Clinician Unavailable Josse Steele Attending Clinician [phone] JOSSE LOCKHART Attending Clinician UnavailKVNG Kay Admitting Clinician Unavailable Kvng Roberson DO Admitting Clinician [phone] GASTON HOBBS Admitting Clinician Unavailable JENNIFER Admitting Clinician Unavailable Av Admitting Clinician Unavailable Tressa ESTRELLA JR Admitting Clinician Unavailtressa Estrella Jr., MD, Tressa Schwartz Admitting Clinician [phone] KENNEDI BLUE Admitting Clinician Unavailable Sammi Admitting Clinician Unavailable Payers Payer Name Policy Type Policy Number Effective Date Expirati on Date Source [facility] Dual Complete (HMO-POS D-SNP) [id number] [facility] [employer]ED [employer] (MEDICARE REPLACEMENT HMO) [id number] 2020 00:00:00 Problems Condition Name Condition Details Condition Category Status Onset Date Resolution Date Last Treatment Date Treating Clinician Comments Source COPD exacerbati on COPD exacerbati on Disease Active 05-18 00:00: 00 [facility] Troponin I above reference range Troponin I above reference range Disease Active 4 00:00: 00 [facility] Other hyperlipid emia Other hyperlipid emia Disease Active 05-18 00:00: 00 [facility] TAIWO (acute kidney injury) TAIWO (acute kidney injury) Disease Active 4 00:00: 00 [facility] Aortic stenosis Aortic stenosis Disease Active 05-18 00:00: 00 [facility] 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 Disease Active 4- 00:00: 00 [facility] Acute cough Acute cough Disease Active 4- 00:00: 00 [facility] Acute cough Acute cough Disease Active 4- 00:00: 00 [facility] 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 Active 5-17 00:00: 00 [facility] Bacteremia Bacteremia Disease Active 4-29 00:00: 00 [facility] Medically noncomplia nt Medically noncomplia nt Disease Active 7- 00:00: 00 [facility] Thrush Thrush Disease Active 09-02 00:00: 00 [facility] Obesity (BMI 30-39.9) Obesity (BMI 30-39.9) Disease Active 05-31 00:00: 00 [facility] Genital warts Genital warts Disease Active 08-25 00:00: 00 [facility] H/O: hysterecto my H/O: hysterecto my Disease Active 08-25 00:00: 00 [facility] [id number] Allergic rhinitis, unspecifie d seasonalit y, unspecifie d trigger Problem [facility] [id number] Mental developmen carmen delay Problem [facility] [id number] History of hepatitis C Problem [facility] [id number] 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) Problem [facility] [id number] HIV disease Problem [facility] [id number] +5th digit eff 11/12/19*St age 1 chronic kidney disease Problem [facility] [id number] Chronic kidney disease, unspecifie d CKD stage Problem [facility] [id number] Essential hypertensi on Problem [facility] [id number] Chronic heart failure with preserved ejection fraction Problem [facility] [id number] Pulmonary emphysema, unspecifie d emphysema type Problem [facility] [id number] Mental disability Problem [facility] [id number] Lumbago with sciatica, right side Problem [facility] [id number] Lumbago with sciatica, left side Problem [facility] [id number] 07 On home O2 Problem Commo n [facility] [id number] Environmen carmen allergies Problem [facility] [id number] Vitamin D deficiency Problem [facility] [id number] Other chronic pain Problem [facility] 67702781 Cardiac murmur Problem [facility] [id number] CHRIS (generaliz ed anxiety disorder) Problem [facility] [id number] Mixed hyperlipid emia Problem [facility] [id number] Seasonal allergies Problem [facility] Allergies, Adverse Reactions, Alerts Allergy Name Allergy Type Status Severity Reaction(s) Onset Date Inactive Date Treating Clinician Comments Source NO KNOWN ALLERGIE S Drug Class Active [facility] Social History Social Habit Start Date Stop Date Quantity Comments Source Gender identity [facility] Sexual orientation [facility] History of Tobacco Use Current Smoker [facility] Sex Assigned At [facility] Alcoholic beverage intake 2023-05-16 00:00:00 2023-05-16 00:00:00 Current non-drinker of alcohol (finding) [facility] Alcohol intake 2023-05-16 00:00:00 2023-05-16 00:00:00 Current non-drinker of alcohol (finding) [facility] Exposure to SARS-CoV-2 (event) 2022-03-24 00:00:00 2022-04-03 13:07:00 Not sure [facility] History of Social function 2022-04-03 00:00:00 2022-04-03 00:00:00 [facility] Tobacco use and exposure 2022-04-03 00:00:00 2022-04-03 00:00:00 Smokeless tobacco non-user [facility] Smoking Status Start Date Stop Date Source Current Smoker 2023-11-11 00:00:00 [facility] Never smoked tobacco [facility] Medications Ordered Medication Name [...] tablet 04-08 00:00: 00 Yes 1mg Delfino Orat Qvar RediHaler 80 mcg/actuati on HFA breath [...] 00:00: 00 No 40mg [facility] baclofen 5 mg tablet 11-01 00:00: [...] 05-20 00:00: 00 06-20 04:59 :00 No [id number] 81mg Take 1 tablet by mouth in the morning for 30 days. [facility] predniSONE 20 mg tablet 05-20 00:00: 00 05-24 04:59 :00 No [id number] 40mg Take 2 tablets by mouth in the morning for 3 days. [facility] ALPRAZOLAM ORAL 05-19 16:42: 32 Yes Take by mouth. [facility] celecoxib 400 mg capsule 05-19 16:42: 32 Yes 400mg Take 1 capsule by mouth in the morning. [facility] atorvastati n (LIPITOR) tablet 40 mg 05-19 02:00: 00 Yes 40mg 40 mg, Oral, QHS, First dose on 05/19/23 at 2100, Until Discontinu ed, [facility] mg tablet,ruchi yed release 05-19 00:00: 00 Yes mg Delfino Orta PREDNISONE 20MG 05-19 00:00: 00 Yes Delfino Orta budesonide 0.5 mg/2 mL nebulizer solution 05-19 00:00: 00 06-19 04:59 :00 No [id number] 1mg Inhale 4 mL every 12 (twelve) hours for 30 days. [facility] aspirin EC tablet 81 mg 05-18 20:45: 00 Yes 81mg 81 mg, Oral, DAILY, First dose on 05/19/23 at 1545, Until Discontinu ed, Routine [facility] predniSONE (DELTASONE) tablet 40 mg 05-18 14:00: 00 Yes 40mg 40 mg, Oral, DAILY, First dose on 05/19/23 at 0900, Until Discontinu ed, [facility]ine [facility] methylpredn isolone sod succ (SOLU-MEDRO L) injection 125 mg 05-17 10:00: 00 05-17 14:54 :19 No 125mg 125 mg, Slow IV Push, Q6H ABX, First dose on Sat05/18/23 at 0500, Until Discontinu ed, Routine [facility] budesonide (PULMICORT RESPULE) nebulizer solution 1 mg 05-17 07:00: 00 Yes 1mg 1 mg, Inhalation , Q12H, First dose on Sat05/18/23 at 0200, Until Discontinu ed, Routine
membership assistant approving non-formul fanta medication : LEFTY ABREU
[place] son for non-formul fanta use: Treatment failure with formulary alternativ e [facility] sulfamethox azole-trime thoprim (BACTRIM DS) 800-160 mg per tablet 1 tablet 05-17 01:00: 00 Yes 1{tbl} 1 tablet, Oral, QMON/SAT/ RI AT 1999, First dose on Sat05/17/23 at 2000, Until Discontinu ed, Routine
Reason for Anti-Infec tive: Empiric Non-Surgic al Prophylaxi s
Durat ion of therapy: 5 days [facility] predniSONE 20 mg tablet 05-17 00:00: 00 05-21 04:59 :00 No [id number] 20mg Take 1 tablet by mouth in the morning for 3 days. [facility] NaCl 0.9% (NS) IV infusion 1,000 mL 05-16 21:00: 00 Yes 1000mL at 75 mL/hr, IV Infusion, CONTINUOUS , Starting on Sat05/17/23 at 1600, Until Discontinu ed, Routine [facility] magnesium sulfate in water 2 gram/50 mL (4 %) infusion 2 g 05-16 18:45: 00 05-16 19:50 :00 No 2g 2 g, IV Piggyback, Administer over 60 Minutes, ONCE, 1 dose, On Sat05/17/23 at 1345, Routine [facility] losartan (COZAAR) tablet 100 mg 05-16 14:00: 00 Yes 100mg 100 mg, Oral, DAILY, First dose on Sat05/17/23 at 0900, Until Discontinu ed, Routine [facility] fluconazole (DIFLUCAN) tablet 200 mg 05-16 14:00: 00 Yes 200mg 200 mg, Oral, DAILY, First dose on Sat05/17/23 at 0900, Until Discontinu ed, ANTONIETTA
Re ason for Anti-Infec tive: Empiric Non-Surgic al Prophylaxi s
Durat ion of therapy: 5 days [facility] bictegrav-e mtricit-ten ofov ala [...] home supply? Yes
Dos age Form: Capsule [facility] predniSONE (DELTASONE) tablet 40 mg 05-16 14:00: 00 05-17 09:48 :38 No 40mg 40 mg, Oral, DAILY, 5 doses, First dose on Sat05/17/23 at 0900, Last dose on Sat05/21/23 at 0900, Routine [facility] metoprolol tartrate (LOPRESSOR) tablet 12.5 mg 05-16 13:00: 00 Yes 12.5mg 12.5 mg, Oral, BID, First dose on Sat05/17/23 at 0800, Until Discontinu ed, Routine [facility] fluticasone propionate (FLOVENT HFA) 220 mcg/actuati on inhaler 2 Puff 05-16 13:00: 00 Yes 2{puff} 2 Puff, Inhalation , Q12H, First dose on Sat05/17/23 at 0800, Until Discontinu ed, Routine
Is this order for a patient with suspected or confirmed COVID-19 infection? No [facility] cetirizine (ZYRTEC) tablet 10 mg 05-16 03:00: 00 Yes 10mg 10 mg, Oral, QHS, First dose on Farrah 05/16/23 at 2200, Until Discontinu ed [facility] amLODIPine (NORVASC) tablet 10 mg 05-16 03:00: 00 Yes 10mg 10 mg, Oral, DAILY, First dose on Farrah 05/16/23 at 2200, Until Discontinu ed, Routine [facility] heparin (porcine) injection 5,000 Units 05-16 03:00: 00 Yes 5000U 5,000 Units, Subcutaneo us, Q8H, First dose on Farrah 05/16/23 at 2200, Until Discontinu ed, Routine [facility] albuterol (VENTOLIN) inhaler 2 Puff 05-16 02:35: 18 Yes 2{puff} 2 Puff, Inhalation , Q6HPRN, Starting on Farrah 05/16/23 at 2135, Until Discontinu ed, Routine, Wheezing, Shortness of Breath [facility] ipratropium -albuteroL (DUONEB) 0.5 mg-3 mg(2.5 mg base)/3 mL nebulizer solution 3 mL 05-15 21:00: 00 05-15 18:01 :47 No 3mL 3 mL, Inhalation , QID, First dose on Sat05/16/23 at 1600, Until Discontinu ed, Routine [facility] azithromyci n (ZITHROMAX) 500 [...] y
Durat ion of therapy: 72 hours [facility] magnesium sulfate in water 2 gram/50 mL (4 %) infusion 2 g 05-15 19:45: 00 05-15 19:54 :00 No 2g 2 g, IV Piggyback, Administer over 60 Minutes, ONCE, 1 dose, On Farrah 05/16/23 at 1445, Routine [facility] albuterol (PROVENTIL) 2.5 mg /3 mL (0.083 %) nebulizer solution 7.5 mg 05-15 19:45: 00 05-15 18:54 :00 No 7.5mg 7.5 mg, Inhalation , ONCE, 1 dose, On Farrah 05/16/23 at 1445, ANTONIETTA [facility] acetaminoph en (TYLENOL) tablet 650 mg 05-15 19:30: 37 Yes 650mg 650 mg, Oral, Q6HPRN, Starting on Farrah 05/16/23 at 1430, Until Discontinu ed, Routine, Pain (scale 1-3) [facility] NaCl 0.9% (NS) bolus infusion 1,000 mL 05-15 18:30: 00 05-15 19:34 :00 No 1000mL at 999 mL/hr, 1,000 mL, IV Infusion, ONCE, 1 dose, On Farrah 05/16/23 at 1330, ANTONIETTA [facility] budesonide (PULMICORT RESPULE) nebulizer solution 1 mg 05-15 18:15: 00 05-15 17:40 :00 No 1mg 1 mg, Inhalation , ONCE, 1 dose, On Farrah 05/16/23 at 1315, Routine [facility] albuterol (PROVENTIL) 2.5 mg /3 mL (0.083 %) nebulizer solution 5 mg 05-15 18:00: 00 05-15 18:03 :00 No 5mg 5 mg, Inhalation , ONCE, 1 dose, On Farrah 05/16/23 at 1315, STAT [facility] methylpredn isolone sod succ (SOLU-MEDRO L) injection 125 mg 05-15 17:31: 00 05-15 17:41 :00 No 125mg 125 mg, Intravenou s, ONCE, 1 dose, On Farrah 05/16/23 at 1245, ANTONIETTA [facility] sodium chloride (NS) injection 5 mL 05-15 17:25: 52 Yes 5mL 5 mL, Intravenou s, PRN, Starting on Farrah 05/16/23 at 1225, Until Discontinu ed, Routine, IV line flushing [facility] IBUPROFEN 600MG 05-12 00:00: 00 Yes [...] 04-02 00:00: 00 06-25 00:00 :00 No [id number] Delfino Orta TAKE 1 TABLET DAILY. 04-02 00:00: 00 06-25 00:00 :00 No 20 Delfino Orta naproxen (NAPROSYN) tablet 250 mg 03-20 23:00: 00 Yes 250mg 250 mg, Oral, BID MEALS, First dose on Sat03/20/23 at 1700, Until Discontinu ed, Routine [facility] albuterol sulfate HFA 90 mcg/actuati on aerosol inhaler 03-20 00:00: 00 Yes mcg/act uation Delfino Orta TAKE 1 TABLET BY MOUTH TWICE DAILY FOR 20 DOSES TAKE IN THE MORNINGS AND THE EVENINGS 03-20 00:00: 00 Yes Delfino Orta hydrocortis one 1%-nystatin -zinc oxide Oint ointment 03-20 00:00: 00 Yes [id number] Apply to affected area(s) as needed for Dermatitis /Rash. [facility] albuterol 90 mcg/actuati on inhaler 03-20 00:00: 00 Yes [id number] 2{puff} Inhale 2 Puffs every 6 (six) hours as needed for Wheezing or Shortness of Breath. [facility] naproxen 250 mg tablet 03-20 00:00: 00 03-31 05:59 :00 No [id number] 250mg Take 1 tablet by mouth in the morning and 1 tablet in the evening. Take with meals. Do all this for 20 doses. [facility] Qvar RediHaler 80 mcg/actuati on HFA breath activated aerosol 03-07 00:00: 00 Yes mcg/act uation Delfino Orta TAKE 1 TABLET DAILY. 03-07 00:00: 00 Yes 10 Delfino Orta TAKE 1 TABLET DAILY. 03-07 00:00: 00 Yes [id number] Delfino Orta TAKE 1 TABLET BY MOUTH [...] 11-01 00:00: 00 06-25 00:00 :00 No [id number] Delfino Orta TAKE 1 TO 2 TABLETS [...] mcg/actuati on inhaler 09-17 00:00: 00 Yes [id number] 2{puff} Inhale 2 Puffs every 4 (four) hours as needed for Wheezing or Shortness of Breath. [facility] IBUPROFEN 600MG 09-17 00:00: 00 06-25 00:00 :00 No Delfino Orta TAKE 1 TABLET DAILY. 09-12 00:00: 00 06-25 00:00 :00 No [id number] Delfino Orta TAKE 1 TABLET DAILY. 09-12 00:00: 00 06-25 00:00 :00 No 10 Delfino Endy Orta 1-2 PUFFS Q 12 HOURS 8 00:00: 00 06-25 00:00 :00 No 80 Delfino F You TAKE 1 TABLET BY MOUTH DAILY 8 00:00: 00 06-25 00:00 :00 No 40 Delfino F You TAKE 1 TABLET DAILY. 09-12 00:00: 00 06-25 00:00 :00 No 10 Delfino F You INHALE 1 TO 2 PUFFS BY MOUTH EVERY 6 HOURS NEEDED. 09-12 00:00: 00 06-25 00:00 :00 No [id number] Delfino Endy Orta INHALE 2 PUFFS TWICE [...] 07-04 00:00: 00 06-25 00:00 :00 No [id number] Delfino F You TAKE 1 TABLET DAILY. [...] 07-04 00:00: 00 06-25 00:00 :00 No [id number] Delfino Orta TAKE 1 TABLET DAILY. 07-04 [...] 04-19 00:00: 00 06-25 00:00 :00 No [id number] Delfino Orta TAKE 1 TABLET DAILY. 04-19 [...] 50-200-25 mg tablet 2-21 00:00: 00 Yes [id number] 1{tbl} Take 1 tablet by mouth in the morning. [facility] fluconazole 200 mg tablet 04-03 00:00: 00 Yes [id number] 200mg Take 1 tablet by mouth in the morning. [facility] sulfamethox azole-trime thoprim 800-160 mg per tablet 04-03 00:00: 00 Yes [id number] 1{tbl} Take 1 tablet by mouth in the morning. [facility] sulfamethox azole 800 mg-trimetho [...] 03-30 00:00: 00 06-25 00:00 :00 No [id number] Delfino Orta atorvastati n 40 mg tablet [...] 03-06 00:00: 00 06-25 00:00 :00 No [id number] Delfino Orta APPLY OINTMENT 3 TO 4 [...] Unknown 2021-02 2 00:00: 00 No NYSTATIN [id number] ROOPA 2021-02 00:00: 00 No CITALOPRAM HYDROBROMID [...] TABS 2021-02 00:00: 00 06-25 00:00 :00 vEa Orta FLUCONAZOLE 150MG TAB 2021-02 00:00: 00 [...] 00:00 :00 No Delfino F You NYSTATIN [id number] ROOPA 2021-02 2 00:00: 00 06-25 00:00 [...] No Delfino Orta AMLODIPINE BESYLATE 10MG TAB 2021-0 8-18 00:00: 00 Yes Delfino Orta AMLODIPINE BESYLATE 10MG TAB 2021-0 8-18 00:00: 00 No AMLODIPINE BESYLATE 10MG TAB 2021-0 8-18 00:00: 00 No AMLODIPINE BESYLATE 10MG TAB 2021-0 8-18 00:00: 00 No TAKE BY MOUTH 6 MILLILITERS 4 TIMES A DAY FOR 14 DAYS 0 7-20 00:00: 00 Yes Delfino Orta FLUTICASONE PROPIONATE 50MCG RX SPR 0 7-20 00:00: 00 Yes Delfino Orta TAKE BY MOUTH 6 MILLILITERS 4 TIMES A DAY FOR 14 DAYS 0 7-20 00:00: 00 No Dose Unknown 2021-0 7-20 00:00: 00 No TAKE BY MOUTH 6 MILLILITERS 4 TIMES A DAY FOR 14 DAYS 08-30 00:00: 00 No FLUTICASONE PROPIONATE 50MCG RX SPR 08-30 00:00: 00 No TAKE BY MOUTH 6 MILLILITERS 4 TIMES A DAY FOR 14 DAYS 08-30 00:00: 00 No Dose Unknown 08-30 00:00: 00 No losartan 100 mg-hydrochl [...] &lt 2-0 08-07 00:00: 00 No &lt 2022-0 6-27 00:00: 00 No &lt 2022-0 6- 00:00: 00 No Dose Unknown 2-0 08-07 00:00: 00 05 00:00 :00 No 400 Delfino Schumacher You &lt 2022-0 6-24 00:00: 00 Yes Delfino Orta &lt 2022-0 6-24 00:00: 00 No &lt 2022-0 6-24 00:00: 00 No &lt 2022-0 6-24 00:00: 00 No mirtazapine 45 mg tablet 2022-0 -22 00:00: 00 Yes 1mg Delfino Endy Orta mirtazapine 45 mg tablet 2-0 08-02 00:00: 00 No 1mg TAKE 1 TABLET AT BEDTIME. 2-0 08-02 00:00: 00 No mirtazapine 45 mg tablet 2-0 22 00:00: 00 No 1mg &lt 2022-0 6-17 00:00: 00 Yes Delfino Orta &lt 2022-0 6-17 00:00: 00 Yes Delfino Orta &lt 2022-0 6-17 00:00: 00 No &lt 2022-0 6-17 00:00: 00 No &lt 2022-0 6-17 00:00: 00 No &lt 2022-0 6-17 00:00: 00 No &lt 2022-0 6-17 00:00: 00 No &lt 2022-0 6-17 00:00: 00 No imiquimod 3.75 % topical cream in a pump 0 07-03 00:00: 00 Yes 1% Delfino Orta fluconazole 150 mg tablet 2021-0 07-03 00:00: 00 Yes 1mg Delfino Orta fluticasone propionate 50 mcg/actuati on nasal spray,suspe nsion 2021-0 07-03 00:00: 00 Yes 1mcg/ac tuation Delfino Orta imiquimod 3.75 % topical cream in a pump 2021-0 07-03 00:00: 00 No 1% fluconazole 150 mg tablet 2021-0 07-03 00:00: [...] 07-03 00:00: 00 06-25 00:00 :00 No [id number] Delfino Orta sulfamethox azole-trime thoprim 800-160 mg per tablet 06-15 00:00: 00 04-03 00:00 :00 No [id number] 1{tbl} Take 1 tablet by mouth daily. [facility] ALPRAZOLAM ORAL 06-14 17:22: 53 Yes Take by mouth. [facility] efavirenz 600 mg tablet 06-14 00:00: 00 Yes [id number] 600mg Take 1 tablet by mouth daily. [facility] metoprolol tartrate 25 mg tablet 06-14 00:00: 00 Yes [id number] 12.5mg Take 0.5 tablets by mouth 2 (two) times daily. [facility] nystatin 100,000 unit/mL suspension 06-14 00:00: 00 Yes [id number] 682143S Take 5 mL by mouth 4 (four) times daily. [facility] amoxicillin -clavulanat e 875-125 mg per tablet 06-14 00:00: 00 04-03 00:00 :00 No [id number] 1{tbl} Take 1 tablet by mouth every 12 (twelve) hours. [facility] lamiVUDine 150 mg tablet 06-14 00:00: 00 04-03 00:00 :00 No [id number] 150mg Take 1 tablet by mouth 2 (two) times daily. [facility] ProAir HFA 90 mcg/actuati [...] 1mg Delfino Orta mirtazapine 45 mg tablet 05-22 00:00: 00 Yes 1mg Delfino Orta fluticasone propionate 50 mcg/actuati on nasal spray,suspe nsion 05-22 00:00: 00 Yes 1mcg/ac tuation Delfino Orta ProAir HFA 90 mcg/actuati on aerosol inhaler 05-22 00:00: 00 No 2mcg/ac tuation atorvastati n 40 mg tablet - 00:00: 00 No 1mg amlodipine 10 mg tablet - 00:00: 00 No 1mg losartan 100 mg tablet - 00:00: 00 No 1mg Epzicom 600 mg-300 mg tablet - 00:00: 00 No 1mg citalopram 20 mg tablet - 00:00: 00 No 1mg loratadine 10 mg tablet 0 4- 00:00: 00 No 1mg allopurinol 100 [...] No 1mg allopurinol 100 mg tablet 0 4-11 00:00: 00 No 1mg cyclobenzap rine 5 mg tablet 4- 00:00: 00 No 1mg mirtazapine 45 mg tablet 4- 00:00: 00 No 1mg fluticasone propionate 50 mcg/actuati on nasal spray,suspe nsion 4- 00:00: 00 No 1mcg/ac tuation TRIAMCINOLO NE ACETONIDE 0.1% CRE 4- 00:00: 00 06-25 00:00 :00 No 100 Delfino Orta Dose Unknown 0 3 00:00: 00 Yes Delfino Orta Dose Unknown 0 3 00:00: 00 Yes Delfino Orta Dose Unknown 0 3 00:00: 00 Yes Delfino Orta Dose Unknown 0 3 00:00: 00 No [...] 00 No FLOVENT HFA 220MCG/A INH 0 3 00:00: 00 06-25 00:00 :00 No [id number] Delfino Orta Dose Unknown 0 3 00:00: 00 Yes Delfino Orta Dose Unknown 0 3 00:00: 00 No Dose Unknown 2021-0 3 00:00: 00 No Dose Unknown 2021-0 3 00:00: 00 No Dose Unknown 2021-0 320 00:00: 00 Yes Delfino Orta Dose Unknown 0 320 00:00: 00 No Dose Unknown 0 320 00:00: 00 No Dose Unknown 2022-0 3-20 00:00: 00 No Dose Unknown 2021-0 3-16 00:00: 00 Yes Delfino Orta Dose Unknown 0 3-16 00:00: 00 No Dose Unknown 0 3-16 00:00: 00 No Dose Unknown 0 3-16 00:00: 00 No Dose Unknown 0 3-15 00:00: 00 Yes Delfino Orta Dose Unknown 0 3-15 00:00: 00 Yes Delfino Orta Dose Unknown 0 3-15 00:00: 00 No Dose Unknown 0 3-15 00:00: 00 No Dose Unknown 0 3-15 00:00: 00 No Dose Unknown 0 3-15 00:00: 00 No Dose Unknown 0 3-15 00:00: 00 No Dose Unknown 0 3-15 00:00: 00 No Dose Unknown 0 1-26 00:00: 00 Yes Delfino Orta fluticasone propionate 50 mcg/actuati on nasal spray,suspe nsion 0 1- 00:00: 00 Yes 1mcg/ac tuation Delfino Orta Dose Unknown 0 1- 00:00: 00 No fluticasone propionate 50 mcg/actuati on nasal spray,suspe nsion 0 1- 00:00: 00 No 1mcg/ac tuation Dose Unknown 0 1- 00:00: 00 No fluticasone propionate 50 mcg/actuati on nasal spray,suspe nsion 0 1- 00:00: 00 No 1mcg/ac tuation Dose [...] Unknown 2020-02 00:00: 00 Yes Delfino Orta ibuprofen 600 mg tablet 2020-02 00:00: 00 Yes 1mg Delfino Orta tizanidine 4 mg tablet 2020-02 00:00: 00 Yes 1mg Delfino Orta fluticasone propionate 50 mcg/actuati on nasal spray,suspe nsion 2020-02 00:00: 00 Yes 1mcg/ac tuation Delfino Orta Dose Unknown 2020-02 00:00: 00 [...] 00 No tizanidine 4 mg tablet 2020-02 2 00:00: 00 No 1mg Dose Unknown 2020-02 2 00:00: 00 No fluticasone propionate 50 mcg/actuati on nasal spray,suspe nsion 2020-02 2 00:00: 00 No 1mcg/ac tuation Dose Unknown 2020-02 2- 00:00: 00 No Dose Unknown 2020-02 2- 00:00: 00 No ibuprofen 600 mg tablet [...] pump 10-31 00:00: 00 Yes 1% Delfino F You imiquimod 3.75 % topical cream in [...] 100 mg tablet 09-30 00:00: 00 Yes [id number] 100mg Take 1 tablet by mouth daily. [facility] Flovent HFA 220 mcg/actuati [...] No 1mg Epzicom 600 mg-300 mg tablet 8- 00:00: 00 No 1mg cyclobenzap rine 5 mg tablet 8 00:00: 00 No 12mg mirtazapine 45 mg tablet 8 00:00: 00 No 1mg ferrous sulfate 325 [...] 10 mg tablet 08-12 00:00: 00 Yes [id number] 10mg Take 1 tablet by mouth daily. [facility] atorvastati n 40 mg tablet 08-12 00:00: 00 Yes [id number] 40mg Take 1 tablet by mouth at bedtime. [facility] fluticasone propionate 50 mcg/actuati on nasal spray 07-20 00:00: 00 Yes [id number] 2{spray } Use 2 Sprays in each nostril daily. [facility] fluticasone propionate (FLOVENT HFA) 220 mcg/actuati on inhaler 07-20 00:00: 00 Yes [id number] 2{puff} Inhale 2 Puffs every 12 (twelve) hours. [facility] albuterol 90 mcg/actuati on inhaler 07-20 00:00: 00 03-20 00:00 :00 No [id number] 2{puff} Inhale 2 Puffs every 4 (four) hours as needed for Wheezing or Shortness of Breath. [facility] ibuprofen 800 mg tablet [...] Delfino F You mirtazapine 45 mg tablet 04-22 00:00: 00 Yes 1mg Delfino F You Tessalon Perles 100 mg capsule 04-22 00:00: 00 Yes 12mg Delfino F You Voltaren 1 % topical gel 04-22 00:00: 00 No 1% mirtazapine 45 mg tablet 04-22 00:00: 00 No 1mg Tessalon Perles 100 mg capsule 04-22 00:00: 00 No 12mg Voltaren 1 % topical gel 04-22 00:00: 00 No 1% mirtazapine 45 mg tablet 04-22 00:00: 00 No 1mg Tessalon Perles 100 mg capsule 2021-0 3-12 00:00: 00 No 12mg Voltaren 1 % topical gel 3-12 00:00: 00 No 1% mirtazapine 45 mg tablet 3-12 00:00: 00 No 1mg Tessalon Perles 100 mg capsule 3-12 00:00: 00 No 12mg fluticasone propionate 50 mcg/actuati on nasal spray,suspe nsion 1- 00:00: 00 Yes 1mcg/ac tuation Delfino [...] 2019-02 00:00: 00 Yes 1mcg/ac tuation Delfino F You ProAir HFA 90 [...] No 1mg ibuprofen 800 mg tablet 2019-02 0- 00:00: 00 No 1mg loratadine 10 mg tablet 2019-02 0 00:00: 00 No 1mg Epzicom 600 mg-300 mg tablet 0 9 00:00: 00 Yes 1mg Delfino Orta Epzicom 600 mg-300 mg tablet 0 9- 00:00: 00 No 1mg Epzicom 600 mg-300 mg tablet 0 9 00:00: 00 No 1mg Epzicom 600 mg-300 mg tablet 0 11-05 00:00: 00 No 1mg ProAir HFA 90 mcg/actuati on aerosol inhaler 0 8 00:00: 00 Yes 1mcg/ac tuation Delfino Orta nystatin-tr iamcinolone 100,000 unit/g-0.1 % topical cream 8 00:00: 00 Yes 1unit/g -% Delfino Orta amlodipine 10 mg tablet 0 09-23 00:00: 00 Yes 1mg Delfino Orta ibuprofen 800 mg tablet 0 09-23 00:00: 00 Yes 1mg Delfino Orta losartan 100 mg tablet 0 09-23 00:00: 00 Yes 1mg Delfino Orta loratadine 10 mg tablet 0 09-23 00:00: 00 Yes 1mg Delfino Orta Epzicom 600 mg-300 mg tablet 09-23 00:00: 00 Yes 1mg Delfino Orta ProAir HFA 90 mcg/actuati on aerosol inhaler 0 09-23 00:00: 00 No 1mcg/ac tuation nystatin-tr iamcinolone 100,000 unit/g-0.1 % topical cream 09-23 00:00: 00 No 1unit/g -% amlodipine 10 mg tablet - 00:00: 00 No 1mg ibuprofen 800 mg tablet 0 09-23 00:00: 00 No 1mg losartan 100 mg tablet 0 09-23 00:00: 00 No 1mg loratadine 10 mg tablet 0 8- 00:00: 00 No 1mg Epzicom 600 mg-300 [...] Flovent HFA 220 mcg/actuati on aerosol inhaler 24 00:00: 00 No 2mcg/ac tuation ProAir HFA 90 mcg/actuati on aerosol inhaler 24 00:00: 00 No 1mcg/ac tuation Epzicom 600 [...] le 500 mg tablet 2 00:00: 00 Yes 1mg Delfino F You metronidazo le 500 mg tablet 2020-0 2-21 00:00: 00 No 1mg metronidazo le 500 mg tablet 0 2-21 00:00: 00 No 1mg metronidazo le 500 mg tablet 0 2-21 00:00: 00 No 1mg fluconazole 150 mg tablet 0 2-18 00:00: 00 Yes 1mg Delfino Orta fluconazole 150 mg tablet 0 2-18 00:00: 00 No 1mg fluconazole 150 mg tablet 0 2-18 00:00: 00 No 1mg fluconazole 150 mg tablet 0 2-18 00:00: 00 No 1mg Flovent HFA 220 mcg/actuati on aerosol inhaler 0 2-11 00:00: 00 Yes 2mcg/ac tuation Delfino Orta ProAir HFA 90 mcg/actuati on aerosol inhaler 0 2-11 00:00: 00 Yes 1mcg/ac tuation Delfino Orta Epzicom 600 mg-300 mg tablet 0 2-11 00:00: 00 Yes 1mg Delfino Orta Flovent HFA 220 mcg/actuati on aerosol inhaler 0 2-11 00:00: 00 No 2mcg/ac tuation Flovent [...] on aerosol inhaler - 00:00: 00 No 1mcg/ac tuation ProAir HFA 90 mcg/actuati on aerosol inhaler 02-26 00:00: 00 No 1mcg/ac tuation ProAir HFA 90 mcg/actuati on aerosol inhaler 02-26 00:00: 00 No 1mcg/ac tuation Flovent HFA [...] 2018-02 00:00: 00 Yes 1mcg/ac tuation Delfino Endy You ProAir HFA 90 mcg/actuati on aerosol [...] capsule 2018-02 00:00: 00 Yes 1mg Delfino F You indomethaci n 25 mg capsule 2018-02 00:00: [...] Delfino Orta amlodipine 10 mg tablet 2018-02 0-16 00:00: 00 Yes 1mg Delfino Orta mirtazapine [...] tablet 2018-02 0-16 00:00: 00 No 1mg loratadine 10 mg tablet 2018-02 009 00:00: 00 Yes 1mg Delfino F You fluticasone propionate 50 mcg/actuati on nasal spray,suspe nsion 2018-02 009 00:00: 00 Yes 1mcg/ac tuation Delfino F You loratadine 10 mg tablet 2018-02 009 00:00: [...] 0.12 % mouthwash 2018-02 00:00: 00 Yes [id number] 15mL Swish and spit out 15 mL 2 (two) times daily. [facility] chlorhexidi ne (PERIDEX) 0.12 % mouthwash 2018-02 00:00: 00 Yes [id number] 15mL Swish and spit out 15 mL 2 (two) times daily. [facility] allopurinol 100 mg tablet [...] Take 1 Cap by mouth at bedtime. [facility] Bictegravir -Emtricitab -Tenofov 50-200-25 [...] Orta Influenza Virus Vaccine 2023-07-02 00:00:00 Completed [facility] TDAP 2023-07-02 00:00:00 Completed [facility] Evusheld (Cilgavimab) 2023-07-02 00:00:00 Completed [facility] Evusheld (Tixagevimab) 2023-07-02 00:00:00 Completed [facility] Influenza Virus Vaccine 2023-05-21 00:00:00 Completed [facility] TDAP 2023-05-21 00:00:00 Completed [facility] Evusheld (Cilgavimab) 2023-05-21 00:00:00 Completed [facility] Evusheld (Tixagevimab) 2023-05-21 00:00:00 Completed [facility] Influenza Virus Vaccine 2023-05-16 12:13:00 Completed [facility] TDAP 2023-05-16 12:13:00 Completed [facility] Evusheld (Cilgavimab) 2023-05-16 12:13:00 Completed [facility] Evusheld (Tixagevimab) 2023-05-16 12:13:00 Completed [facility] Influenza Virus Vaccine 2023-03-20 10:44:00 Completed [facility] TDAP 2023-03-20 10:44:00 Completed [facility] Evusheld (Cilgavimab) 2023-03-20 10:44:00 Completed [facility] Evusheld (Tixagevimab) 2023-03-20 10:44:00 Completed [facility] Hep A-Hep B Hep A-Hep B 2022-09-24 00:00:00 Completed Delfino Orta influenza, injectable influenza, injectable 2022-09-24 00:00:00 Completed Delfino Orta SHINGRIX VACCINE SHINGRIX VACCINE 2022-09-24 00:00:00 Completed Delfino Orta Hep A-Hep B Hep A-Hep B 2022-09-24 00:00:00 Completed Delfino Orta influenza, injectable influenza, injectable 2022-09-24 00:00:00 Completed Delfino Orta SHINGRIX VACCINE SHINGRIX VACCINE 2022-09-24 00:00:00 Completed Delfino Orta Evusheld (Cilgavimab) 2021-06-13 00:00:00 Completed [facility] Evusheld (Tixagevimab) 2021-06-13 00:00:00 Completed [facility] Evusheld (Cilgavimab) 2021-06-13 00:00:00 Completed [facility] Evusheld (Tixagevimab) 2021-06-13 00:00:00 Completed [facility] Evusheld (Cilgavimab) 2021-06-13 00:00:00 Completed [facility] Evusheld (Tixagevimab) 2021-06-13 00:00:00 Completed [facility] Evusheld (Cilgavimab) 2021-06-13 00:00:00 Completed [facility] Evusheld (Tixagevimab) 2021-06-13 00:00:00 Completed [facility] 2021-06-13 00:00:00 Completed [facility] 2021-06-13 00:00:00 Completed [facility] 2021-06-13 00:00:00 Completed [facility] 2021-06-13 00:00:00 Completed [facility] 2021-06-13 00:00:00 Completed [facility] 2021-06-13 00:00:00 Completed [facility]Cil[facility] 2021-06-13 00:00:00 Completed [facility]Tixagevimab[facility] 2021-06-13 00:00:00 Completed [facility]Cil[facility] 2021-06-13 00:00:00 Completed [facility]Tixagevim[facility] 2021-06-13 00:00:00 Completed [facility]Cil[facility] 2021-06-13 00:00:00 Completed [facility] Evusheld (Tixagevimab) 2021-06-13 00:00:00 Completed [facility]il[facility] 2021-06-13 00:00:00 Completed [facility] 2021-06-13 00:00:00 Completed Moderna COVID-19 Vaccine [...] Completed Delfino Orta TDAP 2014-08-19 00:00:00 Completed [facility] TDAP 2014-08-19 00:00:00 Completed [facility] TDAP 2014-08-19 00:00:00 Completed [facility] TDAP 2014-08-19 00:00:00 Completed [facility] TDAP 2014-08-19 00:00:00 Completed [facility] TDAP 2014-08-19 00:00:00 Completed [facility] TDAP 2014-08-19 00:00:00 Completed [facility] TDAP 2014-08-19 00:00:00 Completed [facility] TDAP 2014-08-19 00:00:00 Completed [facility] TDAP 2014-08-19 00:00:00 Completed [facility] TDAP 2014-08-19 00:00:00 Completed [facility] Influenza Virus Vaccine 2012-01-21 00:00:00 Completed [facility] Influenza Virus Vaccine 2012-01-21 00:00:00 Completed [facility] Influenza Virus Vaccine 2012-01-21 00:00:00 Completed [facility] Influenza Virus Vaccine 2012-01-21 00:00:00 Completed [facility] Influenza Virus Vaccine 2012-01-21 00:00:00 Completed [facility] Influenza Virus Vaccine 2012-01-21 00:00:00 Completed [facility] Influenza Virus Vaccine 2012-01-21 00:00:00 Completed [facility] Influenza Virus Vaccine 2012-01-21 00:00:00 Completed [facility] Influenza Virus Vaccine 2012-01-21 00:00:00 Completed [facility] Influenza Virus Vaccine 2012-01-21 00:00:00 Completed [facility] Influenza Virus Vaccine 2012-01-21 00:00:00 Completed [facility] Vital Signs Vital Name Observation Time Observation Value Comments Mirna cline height 2023-11-11 15:00:00 62.5 [in_i] Comm on [facility] weight 2023-11-11 15:00:00 118.2 [lb_av] Co mmon [facility] temperature 2023-11-11 15:00:00 97.8 [degF] Com mon [facility] bmi 2023-11-11 15:00:00 21.27 kg/m2 Comm on [facility] oximetry 2023-11-11 15:00:00 93 % Commo n [facility] respiratory rate 2023-11-11 15:00:00 18 /min [facility] blood pressure systolic 2023-11-11 15:00:00 114 mm[Hg] [facility] blood pressure diastolic 2023-11-11 15:00:00 68 mm[Hg] [facility] Respiratory rate 2023-05-20 20:47:00 16 /min [facility] Oxygen saturation in Arterial blood by Pulse oximetry 2023-05-20 20:47:00 97 /min [facility] Systolic blood pressure 2023-05-20 16:21:00 136 mm[Hg] [facility] Diastolic blood pressure 2023-05-20 16:21:00 81 mm[Hg] [facility] Heart rate 2023-05-20 16:21:00 81 /min [facility] Body temperature 2023-05-20 16:21:00 36.17 Roma [facility] Body weight 2023-05-20 08:12:[address] [facility] BMI 2023-05-20 08:12:00 22.28 kg/m2 [facility] Body height 2023-05-16 20:58:[address] [facility] Systolic blood pressure 2023-03-20 16:43:00 154 mm[Hg] [facility] Diastolic blood pressure 2023-03-20 16:43:00 87 mm[Hg] [facility] Heart rate 2023-03-20 16:43:00 77 /min [facility] Body temperature 2023-03-20 16:43:00 36.39 Roma [facility] Respiratory rate 2023-03-20 16:43:00 16 /min [facility] Body height 2023-03-20 16:43:[address] [facility] Body weight 2023-03-20 16:43:[address] [facility] BMI 2023-03-20 16:43:00 20.19 kg/m2 [facility] Oxygen saturation in Arterial blood by Pulse oximetry 2023-03-20 16:43:00 100 /min [facility] Systolic blood pressure 2022-09-17 19:28:58 166 mm[Hg] [facility] Diastolic blood pressure 2022-09-17 19:28:58 103 mm[Hg] [facility] Heart rate 2022-09-17 19:28:58 78 /min Unive [facility] Body temperature 2022-09-17 19:28:58 37.06 Roma [facility] Respiratory rate 2022-09-17 19:28:58 18 /min [facility] Oxygen saturation in Arterial blood by Pulse oximetry 2022-09-17 19:28:58 98 /min [facility] Body height 2022-09-17 16:43:[address] [facility] Body weight 2022-09-17 16:43:[address] [facility] BMI 2022-09-17 16:43:00 20.19 kg/m2 [facility] Systolic blood pressure 2022-04-03 19:20:00 106 mm[Hg] [facility] Diastolic blood pressure 2022-04-03 19:20:00 72 mm[Hg] [facility] Heart rate 2022-04-03 19:20:00 104 /min Unive [facility] Body temperature 2022-04-03 19:20:00 36.22 Roma [facility] Respiratory rate 2022-04-03 19:20:00 18 /min [facility] Body height 2022-04-03 19:20:[address] [facility] Body weight 2022-04-03 19:20:[address] [facility] BMI 2022-04-03 19:20:00 17.68 kg/m2 [facility] Oxygen saturation in Arterial blood by Pulse oximetry 2022-04-03 19:20:00 89 /min [facility] Systolic blood pressure 2021-07-18 20:42:00 174 mm[Hg] [facility] Diastolic blood pressure 2021-07-18 20:42:00 98 mm[Hg] [facility] Heart rate 2021-07-18 20:42:00 104 /min [facility] Body temperature 2021-07-18 20:42:00 35.72 Roma [facility] Body height 2021-07-18 20:42:[address] [facility] Body weight 2021-07-18 20:42:[address] [facility] BMI 2021-07-18 20:42:00 21.97 kg/m2 [facility] BP Systolic 2024-04-09 09:13:00 130 mm[Hg] [...] You Body Temperature 2024-03-09 09:06:00 97.80 degrees Delfnio F You Heart Rate 2024-03-09 09:06:00 79.00 [...] You Height Measured 2023-06-04 13:35:00 63.00 inches Delifno F You Body Temperature 2023-06-04 13:35:00 98.20 [...] You Respiratory Rate 2022-10-04 11:32:00 19.00 /min Delfinousrinder Orta BP Systolic 2022-09-12 09:10:00 130 mm[Hg] [...] Source REFERRAL- REQUEST/RESPONSE 2023-06-26 15:45:25 Doctor Unassigned, [place] [facility] BASIC METABOLIC PANEL (NA, K, CL, CO2, GLUCOSE, BUN, CREATININE, CA) 2023-05-20 08:28:00 Dawn Eddy [facility] CBC WITH DIFF 2023-05-20 08:28:00 Dawn Eddy [facility] TROPONIN I 2023-05-19 10:21:[facility] (NA, K, CL, CO2, GLUCOSE, BUN, CREATININE, CA) 2023-05-19 10:21:00 Dawn Eddy [facility] LIPID PANEL (55825)(TOTAL CHOLESTEROL, TRIGLYCERIDES, HDL) 2023-05-19 10:21:00 James Stacy [facility] CD4 SUBSET ASSAY 2023-05-19 10:21:00 Daniel Arreaga [facility] UREA NITROGEN URINE 2023-05-18 08:30:[address] [facility] COMP. METABOLIC PANEL (49694) 2023-05-17 18:43:00 Ezra [facility] CBC WITH DIFF 2023-05-17 18:43:[address] [facility] URINALYSIS MICROSCOPIC 2023-05-17 14:17:00 Essence Abreu [facility] SODIUM, URINE RANDOM 2023-05-17 14:16:00 Brady [facility] PROTEIN CREAT RATIO URINE RANDOM 2023-05-17 14:16:00 Brady [facility] TROPONIN I 2023-05-17 13:54:00 Lefty Abreu [facility] TRANSTHORACIC ECHO (TTE) COMPLETE 2023-05-17 12:45:00 Kvng Roberson [facility] CREATININE 2023-05-17 03:28[facility]23-05-16 21:13:00 Kvng Roberson [facility] ACUTE CARE VENOUS BLOOD GAS 2023-05-16 18:21:00 Anyi Hearn [facility] XR CHEST 1 VW 2023-05-16 18:00:[address] [facility] LIPASE 2023-05-16 17:40:00 Aniy Hearn [facility] TROPONIN I 2023-05-16 17:40:00 Anyi Hearn [facility] COMP. METABOLIC PANEL (89369) 2023-05-16 17:40:00 [facility] 2023-05-16 17:40:[address] [facility] HB ECG ROUTINE & RHYTHM STRIP 2023-05-16 17:21:17 Anyi Hearn [facility] ASSIGNMENT OF BENEFITS 2023-03-20 17:45:01 Docto r Unassigned, [place] [facility] CONSENT/REFUSAL FOR DIAGNOSIS AND TREATMENT 2023-03-20 16:29:12 Doctor Unassigned, [place] [facility] XR SPINE THORACIC 2 VW 2022-09-17 18:21:00 Vannesa Hobbs [facility] CONSENT/REFUSAL FOR DIAGNOSIS AND TREATMENT 2022-09-17 16:35:17 Doctor Unassigned, [place] [facility] REFERRAL- REQUEST/RESPONSE 2022-06-05 05:01:00 Doctor Unassigned, [place] [facility] HSV 1&2, VZV NAAT 2022-04-03 20:43:00 Guerline Garcia [facility] REFERRAL- REQUEST/RESPONSE 2022-01-19 06:01:00 Doctor Unassigned, [place] [facility] [address] Ecg Routine Ecg W/least 12 Lds W/i r 2016-10-23 00:00:00 Delfino Orta Plan of Care Planned Activity Planned Date Details Comments Source Goal Plan of Care Note [code = 97090-7] Goal Plan of Care Note [code = 52956-6] Goal Plan of Care Note [code = 80386-3] Goal Plan of Care Note [code = 04072-6] Goal Plan of Care Note [code = 51560-0] Goal Plan of Care Note [code = 85434-8] Goal Plan of Care Note [code = 91741-4] Goal Plan of Care Note [code = 81791-7] Goal Plan of Care Note [code = 20648-5] Goal Plan of Care Note [code = 92916-6] Goal Plan of Care Note [code = 02443-5] Goal Plan of Care Note [code = 65951-2] Goal Plan of Care Note [code = 05791-5] Goal Plan of Care Note [code = 04670-1] Goal Plan of Care Note [code = 90279-4] Goal Plan of Care Note [code = 25286-7] Goal Plan of Care Note [code = 53958-5] Goal Plan of Care Note [code = 43008-7] Goal Plan of Care Note [code = 20714-5] Goal Plan of Care Note [code = 76201-8] Goal Plan of Care Note [code = 89543-0] Goal Plan of Care Note [code = 99802-8] Goal Plan of Care Note [code = 36493-6] Goal Plan of Care Note [code = 61928-8] Goal Plan of Care Note [code = 58434-5] Goal Plan of Care Note [code = 76915-5] Goal Plan of Care Note [code = 88381-2] Goal Plan of Care Note [code = 69955-5] Goal Plan of Care Note [code = 07572-9] Goal Plan of Care Note [code = 64554-9] Goal Plan of Care Note [code = 97753-1] Goal Plan of Care Note [code = 07018-2] Goal Plan of Care Note [code = 99752-6] Goal Plan of Care Note [code = 46226-6] Goal Plan of Care Note [code = 49760-4] Goal Plan of Care Note [code = 48639-4] Goal Plan of Care Note [code = 77994-3] Goal Plan of Care Note [code = 75469-4] Goal Plan of Care Note [code = 91765-4] Goal Plan of Care Note [code = 10847-9] Goal Plan of Care Note [code = 61604-6] Goal Plan of Care Note [code = 68256-9] Goal Plan of Care Note [code = 46296-4] Goal Plan of Care Note [code = 33216-4] Goal Plan of Care Note [code = 64979-6] Goal Plan of Care Note [code = 73332-6] Goal Plan of Care Note [code = 18544-9] Goal Plan of Care Note [code = 85334-3] Goal Plan of Care Note [code = 66191-0] Goal Plan of Care Note [code = 38642-5] Goal Plan of Care Note [code = 65947-6] Goal Plan of Care Note [code = 87373-1] Goal Plan of Care Note [code = 43465-9] Goal Plan of Care Note [code = 49753-1] Goal Plan of Care Note [code = 83896-3] Goal Plan of Care Note [code = 04146-5] Goal Plan of Care Note [code = 43869-1] Goal Plan of Care Note [code = 85067-7] Goal Plan of Care Note [code = 46154-7] Goal Plan of Care Note [code = 63496-8] Goal Plan of Care Note [code = 98876-2] Goal Plan of Care Note [code = 65374-1] Goal Plan of Care Note [code = 53265-3] Goal Plan of Care Note [code = 38910-7] Goal Plan of Care Note [code = 38089-5] Goal Plan of Care Note [code = 65978-9] Goal Plan of Care Note [code = 36092-5] Goal Plan of Care Note [code = 20280-8] Goal Plan of Care Note [code = 94537-1] Goal Plan of Care Note [code = 32444-6] Goal Plan of Care Note [code = 01014-6] Goal Plan of Care Note [code = 46361-8] Goal Plan of Care Note [code = 79037-9] Goal Plan of Care Note [code = 38855-7] Goal Plan of Care Note [code = 85221-8] Goal Plan of Care Note [code = 57528-0] Goal Plan of Care Note [code = 14743-9] Goal Plan of Care Note [code = 45174-5] Goal Plan of Care Note [code = 16248-6] Goal Plan of Care Note [code = 56070-3] Goal Plan of Care Note [code = 51382-8] Goal Plan of Care Note [code = 64182-6] Goal Plan of Care Note [code = 31228-6] Goal Plan of Care Note [code = 34844-4] Goal Plan of Care Note [code = 33857-1] Goal Plan of Care Note [code = 39027-0] Goal Plan of Care Note [code = 85421-8] Goal Plan of Care Note [code = 90178-8] Goal Plan of Care Note [code = 63035-3] Goal Plan of Care Note [code = 73509-0] Goal Plan of Care Note [code = 81121-5] Goal Plan of Care Note [code = 71858-6] Goal Plan of Care Note [code = 86108-1] Goal Plan of Care Note [code = 02184-6] Goal Plan of Care Note [code = 19581-2] Goal Plan of Care Note [code = 23372-7] Goal Plan of Care Note [code = 96784-3] Goal Plan of Care Note [code = 00464-1] Goal Plan of Care Note [code = 30591-3] Goal Plan of Care Note [code = 39941-8] Goal Plan of Care Note [code = 79640-2] Goal Plan of Care Note [code = 96205-7] Goal Plan of Care Note [code = 42782-5] Goal Plan of Care Note [code = 39631-1] Goal Plan of Care Note [code = 02991-4] Goal Plan of Care Note [code = 12634-6] Goal Plan of Care Note [code = 36757-6] Goal Plan of Care Note [code = 79380-5] Goal Plan of Care Note [code = 62088-7] Goal Plan of Care Note [code = 01161-6] Goal Plan of Care Note [code = 52408-0] Goal Plan of Care Note [code = 01166-3] Goal Plan of Care Note [code = 83713-4] Goal Plan of Care Note [code = 20725-6] Goal Plan of Care Note [code = 80737-5] Goal Plan of Care Note [code = 37496-5] Goal Plan of Care Note [code = 08332-5] Goal Plan of Care Note [code = 50169-1] Goal Plan of Care Note [code = 96034-6] Goal Plan of Care Note [code = 16638-9] Goal Plan of Care Note [code = 16609-8] Goal Plan of Care Note [code = 88921-4] Goal Plan of Care Note [code = 95170-2] Goal Plan of Care Note [code = 66121-2] Goal Plan of Care Note [code = 85372-5] Goal Plan of Care Note [code = 81941-7] Goal Plan of Care Note [code = 50591-6] Goal Plan of Care Note [code = 15890-3] Goal Plan of Care Note [code = 92452-0] Goal Plan of Care Note [code = 89593-6] Goal Plan of Care Note [code = 63918-4] Goal Plan of Care Note [code = 51561-1] Goal Plan of Care Note [code = 25340-5] Goal Plan of Care Note [code = 52222-6] Goal Plan of Care Note [code = 31983-8] Goal Plan of Care Note [code = 38826-9] Goal Plan of Care Note [code = 80707-3] Goal Plan of Care Note [code = 83649-0] Goal Plan of Care Note [code = 17160-5] Goal Plan of Care Note [code = 78352-3] Goal Plan of Care Note [code = 11410-9] Goal Plan of Care Note [code = 25124-3] Goal Plan of Care Note [code = 83944-2] Goal Plan of Care Note [code = 66496-0] Goal Plan of Care Note [code = 65152-0] Goal Plan of Care Note [code = 44264-2] Goal Plan of Care Note [code = 09789-5] Goal Plan of Care Note [code = 10103-2] Goal Plan of Care Note [code = 58700-9] Goal Plan of Care Note [code = 66648-4] Goal Plan of Care Note [code = 47710-5] Goal Plan of Care Note [code = 99743-2] Goal Plan of Care Note [code = 70296-4] Goal Plan of Care Note [code = 47660-0] Goal Plan of Care Note [code = 99468-2] Goal Plan of Care Note [code = 68850-0] Goal Plan of Care Note [code = 61654-4] Goal Plan of Care Note [code = 35435-8] Goal Plan of Care Note [code = 34362-2] Goal Plan of Care Note [code = 04167-6] Goal Plan of Care Note [code = 12736-0] Goal Plan of Care Note [code = 61434-6] Goal Plan of Care Note [code = 84958-5] Goal Plan of Care Note [code = 22592-0] Goal Plan of Care Note [code = 82554-3] Goal Plan of Care Note [code = 92616-1] Goal Plan of Care Note [code = 37402-0] Goal Plan of Care Note [code = 68279-9] Goal Plan of Care Note [code = 72394-0] Goal Plan of Care Note [code = 73200-5] Goal Plan of Care Note [code = 69758-0] Goal Plan of Care Note [code = 69766-4] Goal Plan of Care Note [code = 03138-6] Goal Plan of Care Note [code = 28591-1] Encounters Start Date/Time End Date/Time Encounter Type Admission Type Attending [facility] [place] Facility Care Department Encounter ID Source 2023-12-04 10:08:00 Outpatient [facility] [id number] [facility] 2023-11-11 14:53:00 [facility] [id number] [facility] 2023-03-29 10:18:01 [facility] [id number] [facility] 2023-03-28 14:01:00 [facility] [id number] [facility] 2023-03-26 15:20:01 Outpatient Zaria Orellana [facility] [id number] [facility] 2024-04-09 09:05:03 2024-04-09 09:05:03 Outpatient [facility] [id number] Delfino Orta 2024-04-09 00:00:00 2024-04-09 00:00:00 Outpatient Visit [facility] [id number] q8r-4bc8-q 9i5-76s1x9 e4a1a1 Delfino Orta 2024-04-08 15:06:50 2024-04-08 15:06:50 Outpatient [facility] [id number] Delfino Orta 2024-04-08 00:00:00 2024-04-08 00:00:00 Outpatient Visit [facility] [id number] Delfino Orta 2023-06-26 00:00:00 2024-03-28 07:46:41 Orders Only Doctor Unassigned, [place] Doctor Unassigned, [place] [facility] 1.2.840.114 350.1.13.10 4.2.7.2.686 [id number] [facility] 2024-03-09 08:55:19 2024-03-09 08:55:19 Outpatient SFA S[facility] [id number] Delfino Orta 2024-03-09 00:00:00 2024-03-09 00:00:00 Outpatient Visit SFA [id number] k6nu2n24-d 49b-4852-9 c27-i41we0 [id number] Delfino Orta 2024-02-26 11:12:50 2024-02-26 11:12:50 Outpatient SFA [facility] [id number] Delfino Orta 2024-02-26 00:00:00 2024-02-26 00:00:00 Outpatient Visit SFA [id number] 5m4-6u38-f 8y2-ddn13t [id number] Delfino Orta 2024-02-07 11:11:04 2024-02-07 11:11:04 Outpatient SFA [facility] [id number] Delfino Orta 2024-02-07 00:00:00 2024-02-07 00:00:00 Outpatient Visit SFA [id number] [id number] [id number]-ece94c [id number] Delfino Orta 2024-01-13 09:11:38 2024-01-13 09:11:38 Outpatient SFA [facility] [id number] Delfino Orta 2024-01-13 00:00:00 2024-01-13 00:00:00 Outpatient Visit SFA [id number] fda-45c9-8 [id number] Delfino Orta 2024-01-01 00:00:00 2024-01-01 00:00:00 Outpatient Visit SFA [id number]-[id number] d7x-781f-7 acd-bd3c1c l7y042 Delfino Orta 2023-11-28 00:00:00 2023-11-28 00:00:00 Outpatient Visit SFA [id number] f403lc7h-h ffe-4d1a-9 602-7d4d0f c3cbfb Delfino Orta 2023-11-20 09:01:17 2023-11-20 09:01:17 Outpatient SFA SFA [id number] Delfino Orta 2023-11-19 10:28:43 2023-11-19 10:28:43 Outpatient SFA CHETAN 1008 Delfino Orta 2023-11-19 00:00:00 2023-11-19 00:00:00 Outpatient Visit SFA [id number] 425-43cf-b [id number] edee0e Delfino Orta 2023-11-12 00:00:00 2023-11-12 00:00:00 (TEL) STLMLC [facility] [id number] [facility] 2023-11-11 00:00:00 2023-11-11 00:00:00 OFFICE VISIT NEW PT LEVEL 4 STLMLC STLMLC [id number] [facility] 2023-11-02 11:02:07 2023-11-02 11:02:07 Outpatient SFA [facility] [id number] Delfino Orta 2023-11-02 00:00:00 2023-11-02 00:00:00 Outpatient Visit SFA [id number]-r 694-4dee-9 1dc-3505b0 b84bc6 Delfino Orta 2023-10-09 14:12:37 2023-10-09 14:12:37 Outpatient SFA SFA 827 Delfino Orta 2023-10-09 00:00:00 2023-10-09 00:00:00 Outpatient Visit SFA [id number] zo91q8z2-1 q37-0752-4 ac5-c614e2 gw182r Delfino Orta 2023-09-23 13:55:35 2023-09-23 13:55:35 Outpatient SFA SFA [id number] Delfino Orta 2023-09-23 00:00:00 2023-09-23 00:00:00 Outpatient Visit SFA [id number] cw11v1v8-l acc-4b92-9 t1g-9i24nt [id number] eDlfino Orta 2023-09-10 09:05:48 2023-09-10 09:05:48 Outpatient SFA SFA [id number] Delfino Orta 2023-09-10 00:00:00 2023-09-10 00:00:00 Outpatient Visit SFA [id number] l5we098y-7 1l3-60q5-5 [id number] [id number] Delfino Orta 2023-08-28 13:07:55 2023-08-28 13:07:55 Outpatient SFA SFA [id number] Delfino Orta 2023-08-28 00:00:00 2023-08-28 00:00:00 Outpatient Visit SFA [id number] a9l5ikrp-8 9y7-9z66-4 5s2-8i8k14 [id number] Delfino Orta 2023-08-22 00:00:00 2023-08-22 00:00:00 Outpatient Visit SFA [id number] 1w9y16i5-2 bc5-4fb0-9 k57-3906a3 66acd9 Delfino Orta 2023-08-09 14:45:50 2023-08-09 14:45:50 Outpatient SFA SFA [id number] Delfino Orta 2023-08-09 00:00:00 2023-08-09 00:00:00 Outpatient Visit SFA [id number] cm4uo67a-p 5fc-42da-a [id number] Delfino Orta 2023-07-24 11:05:48 2023-07-24 11:05:48 Outpatient SFA SFA [id number] Delfino Orta 2023-07-24 00:00:00 2023-07-24 00:00:00 Outpatient Visit SFA [id number] cm8z0l8s-6 41c-49d6-a m2j-1942uy [id number] Delfino Orta 2023-07-09 00:00:00 2023-07-09 00:00:00 Outpatient Visit SFA [id number] f67-00a7-j [id number] [id number] Delfino Orta 2023-07-02 00:00:00 2023-07-02 14:33:10 [facility]Out[facility] 1..840.114 350.1.13.10 4.2.7.2.686 [id number] [facility] 2023-06-05 13:09:09 2023-06-05 13:09:09 Outpatient SFA [facility] [id number] Delfino Orta 2023-06-04 13:27:22 2023-06-04 13:27:22 Outpatient SFA [facility] [id number] Delfino Schumacher [place] 2023-06-04 00:00:00 2023-06-04 00:00:00 Outpatient Visit SFA [id number]-r fc5-45eb-a [id number] 0b1f1c Delfino Schumacher [place] 2023-05-21 00:00:00 2023-05-21 00:00:00 Transition of Care Lj Paredes [facility] 1.2.840.114 350.1.13.10 4.2.7.2.686 [id number] [facility] 2023-05-16 12:13:00 2023-05-20 16:40:00 Inpatient X KVNG [facility] [id number] [facility] 2023-05-16 12:13:00 2023-05-20 16:40:00 Hospital Encounter Anyi Hearn David [facility] 1..840.114 350.1.13.10 4.2.7.2.686 [id number] [facility] 2023-05-09 13:59:33 2023-05-09 13:59:33 Outpatient SFA SFA [id number] Delfino Orta 2023-04-18 10:12:11 2023-04-18 10:12:11 Outpatient SFA SFA [id number] Delfino Orta 2023-04-02 09:41:47 2023-04-02 09:41:47 Outpatient SFA SFA [id number] Delfino Orta 2023-03-20 10:44:00 2023-03-20 12:35:00 Emergency X ANYI HEARN [facility] E[facility] [id number] [facility] 2023-03-20 10:44:00 2023-03-20 12:35:00 Emergency Anyi Hearn [facility] 1.2.840.114 350.1.13.10 4.2.7.2.686 [id number] [facility] 2023-03-18 10:58:22 2023-03-18 10:58:22 Outpatient [facility] [id number] Delfino Schumacher [place] 2023-03-14 14:37:27 2023-03-14 14:37:27 Outpatient [place] [id number] Delfino Schumacher [place] 2023-03-07 13:58:45 2023-03-07 13:58:45 Outpatient [place] [id number] Delfino Schumacher [place] 2022-12-14 14:53:29 2022-12-14 14:53:29 Outpatient [facility] [id number] Delfino Schumacher [place] 2022-10-04 11:25:10 2022-10-04 11:25:10 Outpatient [place] [id number] Delfino Schumacher [place] 2022-09-17 11:44:00 2022-09-17 14:31:00 Emergency X IVONNE HOBBSNT [facility] ERT [id number] [facility] 2022-09-17 11:44:00 2022-09-17 14:31:00 Emergency Gaston Hobbs [facility] 1.2.840.114 350.1.13.10 4.2.7.2.686 [id number] [facility] 2022-09-12 09:01:58 2022-09-12 09:01:58 Outpatient [facility] [id number] Delfino Schumacher [place] 2022-09-11 00:00:00 2022-09-11 00:00:00 Case Management Kasandra Flores [facility] 1.114 350.1.13.10 4.2.7.2.686 [id number] [facility] 2022-08-07 09:45:03 2022-08-07 09:45:03 Outpatient [facility] [id number] Delfino Orta 2022-08-01 13:52:32 2022-08-01 13:52:32 Outpatient [place] [id number] Delfino Orta 2022-07-18 09:30:00 2022-07-18 09:30:00 Outpatient R CLARITZA JAMISON [facility] [id number] [facility] 2022-07-04 11:11:38 2022-07-04 11:11:38 Outpatient [facility] [id number] Delfino Orta 2022-06-05 00:00:00 2022-06-05 00:00:00 Orders Only Doctor Unassigned, [place] [facility] 1.114 350.1.13.10 4.2.7.2.686 [id number] [facility] 2022-05-29 09:31:33 2022-05-29 09:31:33 Outpatient [facility] [id number] Delfino Orta 2022-05-15 13:00:00 2022-05-15 13:00:00 Outpatient R [facility] [id number] [facility] 2022-05-15 09:34:43 2022-05-15 09:34:43 Outpatient SFA [facility] [id number] Delfino Orta 2022-04-19 15:25:24 2022-04-19 15:25:24 Outpatient [facility] [id number] Delfino Orta 2022-04-04 00:00:00 2022-04-04 00:00:00 Case Management Jeanine Almaguer [facility] 1..114 350.1.13.10 4.2.7.2.686 [id number] [facility] 2022-04-03 13:00:00 2022-04-03 14:00:00 [facility].114 350.1.13.10 4.2.7.2.686 [id number] [facility] 2022-04-03 13:00:00 2022-04-03 13:00:00 Outpatient R GUERO MARTINEZ [facility] [id number] [facility] 2022-04-02 15:14:37 2022-04-02 15:14:37 Outpatient [facility] [id number] Delfino Orta 2022-03-28 13:26:46 2022-03-28 13:26:46 Outpatient SFA [facility] [id number] Delfino Schumacher [place] 2022-02-28 11:43:30 2022-02-28 11:43:30 Outpatient [facility] [id number] Delfino Schumacher [place] 2022-02-28 00:00:00 2022-02-28 00:00:00 Outpatient Visit b00g4mv4- m272-74d3 -9cca-918 [id number] j35o4yu3-i 633-44a8-9 cca-918f69 [id number] 2022-02-27 15:30:00 2022-02-27 15:30:00 Outpatient R [facility] [id number] [facility] 2022-02-23 10:25:15 2022-02-23 10:25:15 Outpatient SFA [facility] [id number] Delfino Schumacher [place] 2022-02-22 00:00:00 2022-02-22 00:00:00 Case Management Jeanine Almaguer [facility] ..840.114 350.1.13.10 4.2.7.2.686 [id number] [facility] 2022-01-29 00:00:00 2022-01-29 00:00:00 Case Management Osman Ware [facility] 1.840.114 350.1.13.10 4.2.7.2.686 [id number] [facility] 2022-01-19 13:56:18 2022-01-19 13:56:18 Outpatient SFA SFA [id number] Delfino Orta 2022-01-19 00:00:00 2022-01-19 00:00:00 Orders Only Doctor Unassigned, [place] [facility] 1.840.114 350.1.13.10 4.2.7.2.686 [id number] [facility] 2022-01-19 00:00:00 2022-01-19 00:00:00 Outpatient Visit [id number] 1727-41cc -8650-544 37ax86q5d [id number] 727-41cc-8 [id number] b58e4d 2021-11-15 00:00:00 2021-11-15 00:00:00 Case Management Kasandra Flores [facility] 1..840.114 350.1.13.10 4.2.7.2.686 [id number] [facility] 2021-11-06 00:00:00 2021-11-06 00:00:00 Outpatient Visit [id number] 012e-4b99 -89ed-9b1 [id number] 12e-4b99-8 9ed-9b1c44 4516de 2021-10-10 09:30:00 2021-10-10 09:30:00 Outpatient R [facility] [id number] [facility] 2021-09-07 00:00:00 2021-09-07 00:00:00 Outpatient ELO BHARDWAJ [id number] Radha bentley [facility] 2021-08-25 03:29:00 2021-08-25 03:29:00 Outpatient Adams_R [facility] [id number] [facility] 2021-08-07 00:00:00 2021-08-07 00:00:00 Outpatient Visit iv95wwok- 5l55-7uy0 -5ve9-m26 n29f3536c [id number] ig62gxfn-3 w22-5mi0-6 cb5-d02d18 v1214r 2021-07-18 15:15:00 2021-07-18 16:23:57 Outpatient R APOLINAR WEBER [facility] [id number] [facility] 2021-07-18 15:15:00 2021-07-18 16:23:57 Office Visit Pgy2 Apolinar Weber [facility] 1..840.114 350.1.13.10 4.2.7.2.686 [id number] [facility] 2021-07-18 15:15:00 2021-07-18 16:23:57 Outpatient R APOLINAR WEBER [facility] [id number] [facility] 2021-06-27 00:00:00 2021-06-27 00:00:00 Telephone Enedina Mccarty [facility] ..840.114 350.1.13.10 4.2.7.2.686 [id number] [facility] 2021-06-15 00:00:00 2021-06-15 00:00:00 Transition of Care Lj Paredes ..840.114 350.1.13.10 4.2.7.2.686 [id number] [facility] 2021-06-09 10:48:00 2021-06-14 17:22:00 Inpatient BILLY HAWKINS [facility] [id number] [facility] 2021-06-09 10:48:00 2021-06-14 17:22:00 Hospital Encounter Toby Donohue, Billy Cherry [facility] 1.2.840.114 350.1.13.10 4.2.7.2.686 [id number] [facility] 2021-06-12 00:00:00 2021-06-12 00:00:00 Case Management Evette Dunn [facility] 1.2.840.114 350.1.13.10 4.2.7.2.686 [id number] [facility] 2021-06-08 10:46:00 2021-06-08 16:28:00 Emergency X KENNEDI BLUE [facility] [id number] [facility] 2021-06-08 10:46:00 2021-06-08 16:28:00 Emergency Kennedi Blue [facility] 1.2.840.114 350.1.13.10 4.2.7.2.686 [id number] [facility] 2021-05-24 00:00:00 2021-05-24 00:00:00 Letter (Out) Mikael Quiroz [facility] 1.2.840.114 350.1.13.10 4.2.7.2.686 [id number] [facility] 2021-05-23 00:00:00 2021-05-23 00:00:00 Orders Only Doctor Unassigned, [place] [facility] 1.2.840.114 350.1.13.10 4.2.7.2.686 [id number] [facility] 2021-05-16 09:00:00 2021-05-16 09:00:00 Outpatient Av RICHARDSON [id number] [facility] 2021-05-01 11:30:00 2021-05-01 12:47:00 Emergency X LJ LIANG [facility] [id number] [facility] 2021-05-01 11:30:00 2021-05-01 12:47:00 Emergency Lj Liang [facility] 1.2.840.114 350.1.13.10 4.2.7.2.686 [id number] [facility] 2020-10-04 11:44:00 2020-10-04 12:54:00 Emergency X MARGARET NUNEZ [facility] [id number] [facility] 2020-10-04 11:44:00 2020-10-04 12:54:00 Emergency Margaret Nunez [facility] 1.2.840.114 350.1.13.10 4.2.7.2.686 [id number] [facility] 2020-09-29 00:00:00 2020-09-29 00:00:00 Telephone Bonny Morris [facility] 1.2.840.114 350.1.13.10 4.2.7.2.686 [id number] [facility] 2020-09-22 14:30:00 2020-09-22 14:30:00 Outpatient R BONNY MORRIS [facility] [id number] [facility] 2020-08-25 11:32:00 2020-08-25 11:32:00 Outpatient Adams_R [facility] [id number] [facility] 2020-08-25 09:28:00 2020-08-25 10:21:00 Emergency Margaret Nunez [facility] 1.2.840.114 350.1.13.10 4.2.7.2.686 [id number] [facility] 2020-08-25 09:28:00 2020-08-25 10:21:00 Emergency MARGARET ROBERTSON [facility] E[facility] [id number] [facility] 2020-08-24 14:43:00 2020-08-24 15:59:00 Emergency Earl, K Suzette [facility] 1.2840.114 350.1.13.10 4.2.7.2.686 [id number] [facility] 2020-08-24 14:43:00 2020-08-24 15:59:00 Emergency X [facility] [id number] [facility] 2020-08-24 00:00:00 2020-08-24 00:00:00 Telephone Morris, Sendil [facility] 1.2840.114 350.1.13.10 4.2.7.2.686 [id number] [facility] 2020-08-12 15:00:00 2020-08-12 15:00:00 Outpatient R BONNY MORRIS [facility] [id number] [facility] 2020-08-12 00:00:00 2020-08-12 00:00:00 Telephone Morris, Sendil [facility] 1.2840.114 350.1.13.10 4.2.7.2.686 [id number] [facility] 2020-08-04 01:58:00 2020-08-04 01:58:00 Outpatient Dean_Robert [facility] [id number] [facility] 2020-07-28 00:00:00 2020-07-28 00:00:00 Telephone Christophe, Sendil [facility] 1.2840.114 350.1.13.10 4.2.7.2.686 [id number] [facility] 2020-07-28 00:00:00 2020-07-28 00:00:00 Orders Only Doctor Unassigned, [place] [facility] 1.20.114 350.1.13.10 4.2.7.2.686 [id number] [facility] 2020-07-27 00:00:00 2020-07-27 00:00:00 Telephone Bonny Morris TerriAgMarshaAg [facility] 1.2.840.114 350.1.13.10 4.2.7.2.686 [id number] [id number] [facility] 2020-07-27 00:00:00 2020-07-27 00:00:00 Telephone Bonny Morris TerriAgMarshaAg [facility] 1.2.840.114 350.1.13.10 4.2.7.2.686 [id number] [id number] [facility] 2020-07-26 14:25:36 2020-07-26 15:12:16 Office Visit Bonny MorrisMarshaAg [facility] 1.2.840.114 350.1.13.10 4.2.7.2.686 [id number] [facility] 2020-07-26 14:30:00 2020-07-26 14:30:00 Outpatient R BONNY MORRIS [facility] [id number] [facility] 2020-07-20 10:25:00 2020-07-20 15:52:00 Emergency Dawn Blanco S [facility] 1.2.840.114 350.1.13.10 4.2.7.2.686 [id number] [facility] 2020-07-20 10:16:00 2020-07-20 10:16:00 Emergency X [facility] [id number] [facility] 2020-07-18 01:42:00 2020-07-18 01:42:00 [place] [id number] [facility] 2020-07-01 13:47:00 2020-07-01 16:34:00 Emergency Ibikunle, Folusho F [facility] [id number] [id number] [id number] [id number] [facility] 2020-07-01 13:47:00 2020-07-01 16:34:00 [facility] ERT [id number] [facility] 2020-07-01 13:47:00 2020-07-01 16:34:00 Emergency Josse Lockhart [facility] [id number] [id number] 4.2.7.2.686 [id number] [id number] Results Test Description Test Time Test Comments Results Result Co mments Source LIPID [id number] 06:36:53* Test Item Value Reference Range Interpretation [...] SPECIMENS. FOR MOREINFORMATION, SEE CLIENT ANNOUNCEMENT AT [email or web address] RISK RATIO LDL/HDL (test code = 2238) 0.66 RATIO <3.22 HEMOGLOBIN [id number] 04:59:33* Test Item Value Reference Range Interpretation Comme nts HEMOGLOBIN A1c (test code = 91687) 5.9 % 4.2-5.6 H [employer] GUIDELINES FOR HGB A1C: [...] TESTING PERFORMED AT [facility] [address] [place] [id number] SPANISH INTERPRETER/TRANSLATOR: ABBI SHORT M.D. CLIA NUMBER [id number] [facility]. [id number] CBC W/AUTO DIFF WITH [id number] 03:30:09* Test Item Value Reference Range Interpretation [...] 0.00-0.10 ABS NUCLEATED RBCS (test code = 87926) 0.00 K/UL 0.00-0.11 COMPREHENSIVE METABOLIC [id number] 00:00:00* Test Item Value Reference Range Interpretation Comme nts GLUCOSE (test code = 2217) 87 MG/DL BUN (test code = 2208) 19 MG/DL CREATININE (test code = 2214) 1.49 MG/DL eGFR (2020 CKD-EPI) (test co de = 16583) 40 ML/MIN/1.73 CALC BUN/CREAT (test code = [...] (test code = 2219) 25 U[facility] [id number] 00:00:00* Test Item Value Reference Range Interpretation [...] ABS NUCLEATED RBCS (test cod e = 25761) 0.00 K/UL Delfino OrtaLIPID [id number] 00:00:00* Test Item Value Reference Range Interpretation Comme nts CHOLESTEROL (test code = 2210) 196 MG/DL TRIGLYCERIDES (test code = 2232) 66 MG/DL HDL CHOLESTEROL (test code = 2220) 109 MG/DL CALC LDL CHOL (test code = 2237) 72 MG/DL RISK RATIO LDL/HDL (test cod e = 2238) 0.66 RATIO Delfino OrtaHEMOGLOBIN [id number] 00:00:00* Test Item Value Reference Range Interpretation Comme nts HEMOGLOBIN A1c (test code = 60209) 5.9 % Delfino OrtaCOMPREHENSIVE METABOLIC [id number] 00:00:00* Test Item Value Reference Range Interpretation Comme nts GLUCOSE (test code = 2217) 87 MG/DL BUN (test code = 2208) 19 MG/DL CREATININE (test code = 2214) 1.49 MG/DL eGFR (2020 CKD-EPI) (test co de = 73205) 40 ML/MIN/1.73 CALC BUN/CREAT (test code = [...] = 2219) 25 U/L Delfino OrtaCBC W/AUTO [id number] 00:00:00* Test Item Value Reference Range Interpretation [...] ABS NUCLEATED RBCS (test cod e = 94536) 0.00 K/UL Delfino OrtaLIPID [id number] 00:00:00* Test Item Value Reference Range Interpretation Comme nts CHOLESTEROL (test code = 2210) 196 MG/DL TRIGLYCERIDES (test code = 2232) 66 MG/DL HDL CHOLESTEROL (test code = 2220) 109 MG/DL CALC LDL CHOL (test code = 2237) 72 MG/DL RISK RATIO LDL/HDL (test cod e = 2238) 0.66 RATIO Delfino OrtaHEMOGLOBIN [id number] 00:00:00* Test Item Value Reference Range Interpretation Comme nts HEMOGLOBIN A1c (test code = 04937) 5.9 % Delfino OrtaCOMPREHENSIVE METABOLIC [id number] 00:00:00* Test Item Value Reference Range Interpretation Comme nts GLUCOSE (test code = 2217) 87 MG/DL BUN (test code = 2208) 19 MG/DL CREATININE (test code = 2214) 1.49 MG/DL eGFR (2020 CKD-EPI) (test co de = 39261) 40 ML/MIN/1.73 CALC BUN/CREAT (test code = [...] = 2219) 25 U/L Delfino OrtaCBC W/AUTO [id number] 00:00:00* Test Item Value Reference Range Interpretation [...] ABS NUCLEATED RBCS (test cod e = 53207) 0.00 K/UL Delfino OrtaLIPID [id number] 00:00:00* Test Item Value Reference Range Interpretation Comme nts CHOLESTEROL (test code = 2210) 196 MG/DL TRIGLYCERIDES (test code = 2232) 66 MG/DL HDL CHOLESTEROL (test code = 2220) 109 MG/DL CALC LDL CHOL (test code = 2237) 72 MG/DL RISK RATIO LDL/HDL (test cod e = 2238) 0.66 RATIO Delfino OrtaHEMOGLOBIN [id number] 00:00:00* Test Item Value Reference Range Interpretation Comme nts HEMOGLOBIN A1c (test code = 73265) 5.9 % Delfino OrtaCOMPREHENSIVE METABOLIC [id number] 00:00:00* Test Item Value Reference Range Interpretation Comme nts GLUCOSE (test code = 2217) 87 MG/DL BUN (test code = 2208) 19 MG/DL CREATININE (test code = 2214) 1.49 MG/DL eGFR (2020 CKD-EPI) (test co de = 05554) 40 ML/MIN/1.73 CALC BUN/CREAT (test code = [...] code = 2219) 25 U/L Delfino Schumacher [facility] W/AUTO [id number] 00:00:00* Test Item Value Reference Range Interpretation [...] ABS NUCLEATED RBCS (test cod e = 34754) 0.00 K/UL Delfino OrtaLIPID [id number] 00:00:00* Test Item Value Reference Range Interpretation Comme nts CHOLESTEROL (test code = 2210) 196 MG/DL TRIGLYCERIDES (test code = 2232) 66 MG/DL HDL CHOLESTEROL (test code = 2220) 109 MG/DL CALC LDL CHOL (test code = 2237) 72 MG/DL RISK RATIO LDL/HDL (test cod e = 2238) 0.66 RATIO Delfino OrtaHEMOGLOBIN [id number] 00:00:00* Test Item Value Reference Range Interpretation Comme nts HEMOGLOBIN A1c (test code = 97460) 5.9 % Delfino OrtaCOMPREHENSIVE METABOLIC [id number] 00:00:00* Test Item Value Reference Range Interpretation Comme nts GLUCOSE (test code = 2217) 87 MG/DL BUN (test code = 2208) 19 MG/DL CREATININE (test code = 2214) 1.49 MG/DL eGFR (2020 CKD-EPI) (test co de = 73181) 40 ML/MIN/1.73 CALC BUN/CREAT (test code = [...] = 2219) 25 U/L Delfino OrtaCBC W/AUTO [id number] 00:00:00* Test Item Value Reference Range Interpretation [...] ABS NUCLEATED RBCS (test cod e = 78940) 0.00 K/UL Delfino OrtaLIPID [id number] 00:00:00* Test Item Value Reference Range Interpretation Comme nts CHOLESTEROL (test code = 2210) 196 MG/DL TRIGLYCERIDES (test code = 2232) 66 MG/DL HDL CHOLESTEROL (test code = 2220) 109 MG/DL CALC LDL CHOL (test code = 2237) 72 MG/DL RISK RATIO LDL/HDL (test cod e = 2238) 0.66 RATIO Delfino OrtaHEMOGLOBIN [id number] 00:00:00* Test Item Value Reference Range Interpretation Comme nts HEMOGLOBIN A1c (test code = 23971) 5.9 % Delfnio OrtaCOMPREHENSIVE METABOLIC [id number] 00:00:00* Test Item Value Reference Range Interpretation Comme nts GLUCOSE (test code = 2217) 87 MG/DL BUN (test code = 2208) 19 MG/DL CREATININE (test code = 2214) 1.49 MG/DL eGFR (2020 CKD-EPI) (test co de = 20885) 40 ML/MIN/1.73 CALC BUN/CREAT (test code = [...] code = 2219) 25 U/L Delfino Schumacher [facility] W/AUTO [id number] 00:00:00* Test Item Value Reference Range Interpretation [...] ABS NUCLEATED RBCS (test cod e = 77290) 0.00 K/UL Delfino OrtaLIPID [id number] 00:00:00* Test Item Value Reference Range Interpretation Comme nts CHOLESTEROL (test code = 2210) 196 MG/DL TRIGLYCERIDES (test code = 2232) 66 MG/DL HDL CHOLESTEROL (test code = 2220) 109 MG/DL CALC LDL CHOL (test code = 2237) 72 MG/DL RISK RATIO LDL/HDL (test cod e = 2238) 0.66 RATIO Delfino OrtaHEMOGLOBIN [id number] 00:00:00* Test Item Value Reference Range Interpretation Comme carlito HEMOGLOBIN A1c (test code = 83882) 5.9 % Delfino OrtaHIV-1 QUANT, [id number] 11:19:24* Test Item Value Reference Range Interpretation Comme carlito HIV-1 VIRAL COPY (test code = 4141) TEST NOT PERFORMED COPIES/ML Unable to perform testing, specimen not received.Charges adjusted as applicable. HIV-1 VIRAL LOG (test code = 68661) TEST NOT PERFORMED LOG COPIES/ML Range of quantitatio n is 20-10,000,000 Copies/mL, (1.301-7.000log Copies/mL). Samples with HIV RNA detected below the limit ofquantitation are reported as <20 Copies/mL. Assay methodology ispolymerase chain reaction (PCR) using the [employer] Jose 6800/8800system. The expected result is NOT DETECTED. For diagnostic use,please refer to laboratory test compendium. HIV-1 QUANT, [id number] 00:00:00* Test Item Value Reference Range Interpretation Comme carlito HIV-1 VIRAL COPY (test code = 4141) TEST NOT PERFORMED COPIES/ML HIV-1 VIRAL LOG (test code = 81292) TEST NOT PERFORMED LOGCOPIES/ML Delfino OrtaHIV-1 QUANT, [id number] 00:00:00* Test Item Value Reference Range Interpretation Comme nts HIV-1 VIRAL COPY (test code = 4141) TEST NOT PERFORMED COPIES/ML HIV-1 VIRAL LOG (test code = 44183) TEST NOT PERFORMED LOGCOPIES/ML Delfino F AustinHIV-1 QUANT, [id number] 00:00:00* Test Item Value Reference Range Interpretation Comme nts HIV-1 VIRAL COPY (test code = 4141) TEST NOT PERFORMED COPIES/ML HIV-1 VIRAL LOG (test code = 80002) TEST NOT PERFORMED LOGCOPIES/ML Delfino F AustinHIV-1 QUANT, [id number] 00:00:00* Test Item Value Reference Range Interpretation Comme nts HIV-1 VIRAL COPY (test code = 4141) TEST NOT PERFORMED COPIES/ML HIV-1 VIRAL LOG (test code = 29940) TEST NOT PERFORMED LOGCOPIES/ML Delfino F AustinHIV-1 QUANT, [id number] 00:00:00* Test Item Value Reference Range Interpretation Comme nts HIV-1 VIRAL COPY (test code = 4141) TEST NOT PERFORMED COPIES/ML HIV-1 VIRAL LOG (test code = 74711) TEST NOT PERFORMED LOGCOPIES/ML Delfino F AustinHIV-1 QUANT, [id number] 00:00:00* Test Item Value Reference Range Interpretation Comme nts HIV-1 VIRAL COPY (test code = 4141) TEST NOT PERFORMED COPIES/ML HIV-1 VIRAL LOG (test code = 10844) TEST NOT PERFORMED LOGCOPIES/ML Delfino F AustinHIV-1 QUANT, [id number] 00:00:00* Test Item Value Reference Range Interpretation Comme nts HIV-1 VIRAL COPY (test code = 4141) TEST NOT PERFORMED COPIES/ML HIV-1 VIRAL LOG (test code = 45939) TEST NOT PERFORMED LOGCOPIES/ML Delfino F AustinHIV-1 QUANT, [id number] 00:00:00* Test Item Value Reference Range Interpretation Comme nts HIV-1 VIRAL COPY (test code = 4141) TEST NOT PERFORMED COPIES/ML HIV-1 VIRAL LOG (test code = 73432) TEST NOT PERFORMED LOGCOPIES/ML Delfino F AustinCD4/CD8 LYMPHOCYTE [id number] 15:06:04* Test Item Value Reference Range Interpretation Comme nts ABSOLUTE LYMPHOCYTES (test code = 22542) 1180 PER UL 6272-1365 PERCENT CD4 (test code = 54447) 20.9 % 34.0-65.0 L ABSOLUTE CD4 (test code = 05893) 247 PER UL 520-1470 L PERCENT CD8 (test code = 16686) 56.8 % 13.0-38.0 H ABSOLUTE CD8 (test code = 38352) 670 PER UL 205-920 CD4/CD8 RATIO (test code = 67248) 0.37 0.92-3.41 L UNLESS OTHERWISE INDICATED, ALL TESTING PERFORMED AT [facility] [address] [place] [id number] SPANISH INTERPRETER/TRANSLATOR: ABBI SHORT M.D. CLIA NUMBER [id number] [facility] [place]. [id number] CD4/CD8 LYMPHOCYTE [id number] 00:00:00* Test Item Value Reference Range Interpretation Comme nts ABSOLUTE LYMPHOCYTES (test c ode = 83100) 1180 PERUL PERCENT CD4 (test code = 85505) 20.9 % ABSOLUTE CD4 (test code = 71385) 247 PERUL PERCENT CD8 (test code = 78586) 56.8 % ABSOLUTE CD8 (test code = 56013) 670 PERUL CD4/CD8 RATIO (test code = 01353) 0.37 Delfino Schumacher AustinCD4/CD8 LYMPHOCYTE [id number] 00:00:00* Test Item Value Reference Range Interpretation Comme nts ABSOLUTE LYMPHOCYTES (test c ode = 00078) 1180 PERUL PERCENT CD4 (test code = 55291) 20.9 % ABSOLUTE CD4 (test code = 20624) 247 PERUL PERCENT CD8 (test code = 07433) 56.8 % ABSOLUTE CD8 (test code = 78930) 670 PERUL CD4/CD8 RATIO (test code = 38468) 0.37 Delfino F AustinCD4/CD8 LYMPHOCYTE [id number] 00:00:00* Test Item Value Reference Range Interpretation Comme nts ABSOLUTE LYMPHOCYTES (test c ode = 57447) 1180 PERUL PERCENT CD4 (test code = 57836) 20.9 % ABSOLUTE CD4 (test code = 29417) 247 PERUL PERCENT CD8 (test code = 21266) 56.8 % ABSOLUTE CD8 (test code = 61273) 670 PERUL CD4/CD8 RATIO (test code = 02494) 0.37 Delfino Schumacher AustinCD4/CD8 LYMPHOCYTE [id number] 00:00:00* Test Item Value Reference Range Interpretation Comme nts ABSOLUTE LYMPHOCYTES (test c ode = 44530) 1180 PERUL PERCENT CD4 (test code = 81887) 20.9 % ABSOLUTE CD4 (test code = 97028) 247 PERUL PERCENT CD8 (test code = 74442) 56.8 % ABSOLUTE CD8 (test code = 21927) 670 PERUL CD4/CD8 RATIO (test code = 03081) 0.37 Delfino Schumacher AustinCD4/CD8 LYMPHOCYTE [id number] 00:00:00* Test Item Value Reference Range Interpretation Comme nts ABSOLUTE LYMPHOCYTES (test c ode = 56836) 1180 PERUL PERCENT CD4 (test code = 77065) 20.9 % ABSOLUTE CD4 (test code = 86583) 247 PERUL PERCENT CD8 (test code = 54050) 56.8 % ABSOLUTE CD8 (test code = 72563) 670 PERUL CD4/CD8 RATIO (test code = 56084) 0.37 Delfino Schumacher AustinCD4/CD8 LYMPHOCYTE [id number] 00:00:00* Test Item Value Reference Range Interpretation Comme nts ABSOLUTE LYMPHOCYTES (test c ode = 47103) 1180 PERUL PERCENT CD4 (test code = 94612) 20.9 % ABSOLUTE CD4 (test code = 91884) 247 PERUL PERCENT CD8 (test code = 77485) 56.8 % ABSOLUTE CD8 (test code = 73251) 670 PERUL CD4/CD8 RATIO (test code = 66024) 0.37 Delfino Schumacher AustinCD4/CD8 LYMPHOCYTE [id number] 00:00:00* Test Item Value Reference Range Interpretation Comme nts ABSOLUTE LYMPHOCYTES (test c ode = 22367) 1180 PERUL PERCENT CD4 (test code = 08867) 20.9 % ABSOLUTE CD4 (test code = 91704) 247 PERUL PERCENT CD8 (test code = 58571) 56.8 % ABSOLUTE CD8 (test code = 58889) 670 PERUL CD4/CD8 RATIO (test code = 61729) 0.37 Delfino Schumacher AustinCD4/CD8 LYMPHOCYTE [id number] 00:00:00* Test Item Value Reference Range Interpretation Comme nts ABSOLUTE LYMPHOCYTES (test c ode = 10234) 1180 PERUL PERCENT CD4 (test code = 13194) 20.9 % ABSOLUTE CD4 (test code = 16134) 247 PERUL PERCENT CD8 (test code = 51066) 56.8 % ABSOLUTE CD8 (test code = 04804) 670 PERUL CD4/CD8 RATIO (test code = 33100) 0.37 Delfino Schumacher YouCOMPREHENSIVE METABOLIC [id number] 00:00:00* Test Item Value Reference Range Interpretation Comme nts GLUCOSE (test code = 2217) 83 MG/DL BUN (test code = 2208) 24 MG/DL CREATININE (test code = 2214) 1.32 MG/DL eGFR (2020 CKD-EPI) (test co de = 02643) 46 ML/MIN/1.73 CALC BUN/CREAT (test code = [...] 2219) 13 U/L Delfino Schumacher YouCD4/CD8 LYMPHOCYTE [id number] 00:00:00* Test Item Value Reference Range Interpretation Comme nts ABSOLUTE LYMPHOCYTES (test c ode = 36725) 877 PERUL PERCENT CD4 (test code = 08183) 22.4 % ABSOLUTE CD4 (test code = 78596) 196 PERUL PERCENT CD8 (test code = 54177) 58.8 % ABSOLUTE CD8 (test code = 09129) 515 PERUL CD4/CD8 RATIO (test code = 66689) 0.38 Delfino OrtaHIV-1 QUANT, [id number] 00:00:00* Test Item Value Reference Range Interpretation Comme nts HIV-1 VIRAL COPY (test code = 4141) 619 COPIES/ML HIV-1 VIRAL LOG (test code = 33655) 2.792 LOGCOPIES/ML Delfino OrtaHEMOGLOBIN A1c [ADDED]2023-09-11 00:00:00* Test Item Value Reference Range Interpretation Comme nts HEMOGLOBIN A1c (test code = 99270) 5.6 % Delfino OrtaCBC W/AUTO [id number] 00:00:00* Test Item Value Reference Range Interpretation [...] ABS NUCLEATED RBCS (test cod e = 32998) 0.00 K/UL Delfino OrtaCOMPREHENSIVE METABOLIC [id number] 00:00:00* Test Item Value Reference Range Interpretation Comme nts GLUCOSE (test code = 2217) 83 MG/DL BUN (test code = 2208) 24 MG/DL CREATININE (test code = 2214) 1.32 MG/DL eGFR (2020 CKD-EPI) (test co de = 19643) 46 ML/MIN/1.73 CALC BUN/CREAT (test code = [...] = 2219) 13 U/L Delfino OrtaCD4/CD8 LYMPHOCYTE [id number] 00:00:00* Test Item Value Reference Range Interpretation Comme [facility] ABSOLUTE LYMPHOCYTES (test c ode = 85869) 877 PERUL PERCENT CD4 (test code = 15945) 22.4 % ABSOLUTE CD4 (test code = 76245) 196 PERUL PERCENT CD8 (test code = 22678) 58.8 % ABSOLUTE CD8 (test code = 21468) 515 PERUL CD4/CD8 RATIO (test code = 64805) 0.38 Delfino OrtaHIV-1 QUANT, [id number] 00:00:00* Test Item Value Reference Range Interpretation Comme [facility] HIV-1 VIRAL COPY (test code = 4141) 619 COPIES/ML HIV-1 VIRAL LOG (test code = 02257) 2.792 LOGCOPIES/ML Delfino OrtaHEMOGLOBIN A1c [ADDED]2023-09-11 00:00:00* Test Item Value Reference Range Interpretation Comme [facility] HEMOGLOBIN A1c (test code = 81393) 5.6 % Delfino OrtaCBC W/AUTO [id number] 00:00:00* Test Item Value Reference Range Interpretation [...] ABS NUCLEATED RBCS (test cod e = 68623) 0.00 K/UL Delfino Endy AustinCOMPREHENSIVE METABOLIC [id number] 00:00:00* Test Item Value Reference Range Interpretation Comme nts GLUCOSE (test code = 2217) 83 MG/DL BUN (test code = 2208) 24 MG/DL CREATININE (test code = 2214) 1.32 MG/DL eGFR (2020 CKD-EPI) (test co de = 63144) 46 ML/MIN/1.73 CALC BUN/CREAT (test code = [...] = 2219) 13 U/L Delfino OrtaCD4/CD8 LYMPHOCYTE [id number] 00:00:00* Test Item Value Reference Range Interpretation Comme nts ABSOLUTE LYMPHOCYTES (test c ode = 09124) 877 PERUL PERCENT CD4 (test code = 97972) 22.4 % ABSOLUTE CD4 (test code = 51548) 196 PERUL PERCENT CD8 (test code = 65634) 58.8 % ABSOLUTE CD8 (test code = 61537) 515 PERUL CD4/CD8 RATIO (test code = 71684) 0.38 Delfino OrtaHIV-1 QUANT, [id number] 00:00:00* Test Item Value Reference Range Interpretation Comme [facility] HIV-1 VIRAL COPY (test code = 4141) 619 COPIES/ML HIV-1 VIRAL LOG (test code = 80658) 2.792 LOGCOPIES/ML Delfino OrtaHEMOGLOBIN A1c [ADDED]2023-09-11 00:00:00* Test Item Value Reference Range Interpretation Comme [facility] HEMOGLOBIN A1c (test code = 93775) 5.6 % Delfino OrtaCBC W/AUTO [id number] 00:00:00* Test Item Value Reference Range Interpretation [...] ABS NUCLEATED RBCS (test cod e = 68417) 0.00 K/UL Delfino OrtaCOMPREHENSIVE METABOLIC [id number] 00:00:00* Test Item Value Reference Range Interpretation Comme nts GLUCOSE (test code = 2217) 83 MG/DL BUN (test code = 2208) 24 MG/DL CREATININE (test code = 2214) 1.32 MG/DL eGFR (2020 CKD-EPI) (test co de = 09554) 46 ML/MIN/1.73 CALC BUN/CREAT (test code = [...] = 2219) 13 U/L Delfino OrtaCD4/CD8 LYMPHOCYTE [id number] 00:00:00* Test Item Value Reference Range Interpretation Comme nts ABSOLUTE LYMPHOCYTES (test c ode = 22809) 877 PERUL PERCENT CD4 (test code = 60819) 22.4 % ABSOLUTE CD4 (test code = 65783) 196 PERUL PERCENT CD8 (test code = 15071) 58.8 % ABSOLUTE CD8 (test code = 68120) 515 PERUL CD4/CD8 RATIO (test code = 10450) 0.38 Delfino OrtaHIV-1 QUANT, [id number] 00:00:00* Test Item Value Reference Range Interpretation Comme nts HIV-1 VIRAL COPY (test code = 4141) 619 COPIES/ML HIV-1 VIRAL LOG (test code = 83377) 2.792 LOGCOPIES/ML Delfino OrtaHEMOGLOBIN A1c [ADDED]2023-09-11 00:00:00* Test Item Value Reference Range Interpretation Comme nts HEMOGLOBIN A1c (test code = 14488) 5.6 % Delfino OrtaCBC W/AUTO [id number] 00:00:00* Test Item Value Reference Range Interpretation [...] ABS NUCLEATED RBCS (test cod e = 14247) 0.00 K/UL Delfino OrtaCOMPREHENSIVE METABOLIC [id number] 00:00:00* Test Item Value Reference Range Interpretation Comme nts GLUCOSE (test code = 2217) 83 MG/DL BUN (test code = 2208) 24 MG/DL CREATININE (test code = 2214) 1.32 MG/DL eGFR (2020 CKD-EPI) (test co de = 81142) 46 ML/MIN/1.73 CALC BUN/CREAT (test code = [...] = 2219) 13 U/L Delfino OrtaCD4/CD8 LYMPHOCYTE [id number] 00:00:00* Test Item Value Reference Range Interpretation Comme nts ABSOLUTE LYMPHOCYTES (test c ode = 33533) 877 PERUL PERCENT CD4 (test code = 88646) 22.4 % ABSOLUTE CD4 (test code = 95027) 196 PERUL PERCENT CD8 (test code = 61707) 58.8 % ABSOLUTE CD8 (test code = 77935) 515 PERUL CD4/CD8 RATIO (test code = 61177) 0.38 Delfino OrtaHIV-1 QUANT, [id number] 00:00:00* Test Item Value Reference Range Interpretation Comme nts HIV-1 VIRAL COPY (test code = 4141) 619 COPIES/ML HIV-1 VIRAL LOG (test code = 34115) 2.792 LOGCOPIES/ML Delfino OrtaHEMOGLOBIN A1c [ADDED]2023-09-11 00:00:00* Test Item Value Reference Range Interpretation Comme nts HEMOGLOBIN A1c (test code = 87242) 5.6 % Delfino OrtaCBC W/AUTO [id number] 00:00:00* Test Item Value Reference Range Interpretation [...] ABS NUCLEATED RBCS (test cod e = 73924) 0.00 K/UL Delfino OrtaCOMPREHENSIVE METABOLIC [id number] 00:00:00* Test Item Value Reference Range Interpretation Comme nts GLUCOSE (test code = 2217) 83 MG/DL BUN (test code = 2208) 24 MG/DL CREATININE (test code = 2214) 1.32 MG/DL eGFR (2020 CKD-EPI) (test co de = 02736) 46 ML/MIN/1.73 CALC BUN/CREAT (test code = [...] = 2219) 13 U/L Delfino OrtaCD4/CD8 LYMPHOCYTE [id number] 00:00:00* Test Item Value Reference Range Interpretation Comme nts ABSOLUTE LYMPHOCYTES (test c ode = 91013) 877 PERUL PERCENT CD4 (test code = 35392) 22.4 % ABSOLUTE CD4 (test code = 07264) 196 PERUL PERCENT CD8 (test code = 16937) 58.8 % ABSOLUTE CD8 (test code = 50524) 515 PERUL CD4/CD8 RATIO (test code = 94824) 0.38 Delfino OrtaHIV-1 QUANT, [id number] 00:00:00* Test Item Value Reference Range Interpretation Comme nts HIV-1 VIRAL COPY (test code = 4141) 619 COPIES/ML HIV-1 VIRAL LOG (test code = 25161) 2.792 LOGCOPIES/ML Delfino OrtaHEMOGLOBIN A1c [ADDED]2023-09-11 00:00:00* Test Item Value Reference Range Interpretation Comme nts HEMOGLOBIN A1c (test code = 45772) 5.6 % Delfino OrtaCBC W/AUTO [id number] 00:00:00* Test Item Value Reference Range Interpretation [...] ABS NUCLEATED RBCS (test cod e = 29286) 0.00 K/UL Delfino Schumacher YouCOMPREHENSIVE METABOLIC [id number] 00:00:00* Test Item Value Reference Range Interpretation Comme nts GLUCOSE (test code = 2217) 83 MG/DL BUN (test code = 2208) 24 MG/DL CREATININE (test code = 2214) 1.32 MG/DL eGFR (2020 CKD-EPI) (test co de = 90437) 46 ML/MIN/1.73 CALC BUN/CREAT (test code = [...] = 2219) 13 U/L Delfino OrtaCD4/CD8 LYMPHOCYTE [id number] 00:00:00* Test Item Value Reference Range Interpretation Comme nts ABSOLUTE LYMPHOCYTES (test c ode = 31232) 877 PERUL PERCENT CD4 (test code = 88064) 22.4 % ABSOLUTE CD4 (test code = 97041) 196 PERUL PERCENT CD8 (test code = 37384) 58.8 % ABSOLUTE CD8 (test code = 49574) 515 PERUL CD4/CD8 RATIO (test code = 00232) 0.38 Delfino OrtaHIV-1 QUANT, [id number] 00:00:00* Test Item Value Reference Range Interpretation Comme [facility] HIV-1 VIRAL COPY (test code = 4141) 619 COPIES/ML HIV-1 VIRAL LOG (test code = 89994) 2.792 LOGCOPIES/ML Delfino OrtaHEMOGLOBIN A1c [ADDED]2023-09-11 00:00:00* Test Item Value Reference Range Interpretation Comme [facility] HEMOGLOBIN A1c (test code = 30243) 5.6 % Delfino OrtaCBC W/AUTO [id number] 00:00:00* Test Item Value Reference Range Interpretation [...] ABS NUCLEATED RBCS (test cod e = 23698) 0.00 K/UL Delfino OrtaCOMPREHENSIVE METABOLIC [id number] 00:00:00* Test Item Value Reference Range Interpretation Comme nts GLUCOSE (test code = 2217) 83 MG/DL BUN (test code = 2208) 24 MG/DL CREATININE (test code = 2214) 1.32 MG/DL eGFR (2020 CKD-EPI) (test co de = 38453) 46 ML/MIN/1.73 CALC BUN/CREAT (test code = [...] = 2219) 13 U/L Delfino OrtaCD4/CD8 LYMPHOCYTE [id number] 00:00:00* Test Item Value Reference Range Interpretation Comme nts ABSOLUTE LYMPHOCYTES (test c ode = 52429) 877 PERUL PERCENT CD4 (test code = 15875) 22.4 % ABSOLUTE CD4 (test code = 65318) 196 PERUL PERCENT CD8 (test code = 81742) 58.8 % ABSOLUTE CD8 (test code = 40451) 515 PERUL CD4/CD8 RATIO (test code = 97599) 0.38 Delfino OrtaHIV-1 QUANT, [id number] 00:00:00* Test Item Value Reference Range Interpretation Comme nts HIV-1 VIRAL COPY (test code = 4141) 619 COPIES/ML HIV-1 VIRAL LOG (test code = 60335) 2.792 LOGCOPIES/ML Delfino OrtaHEMOGLOBIN A1c [ADDED]2023-09-11 00:00:00* Test Item Value Reference Range Interpretation Comme nts HEMOGLOBIN A1c (test code = 89766) 5.6 % Delfino OrtaCBC W/AUTO [id number] 00:00:00* Test Item Value Reference Range Interpretation [...] ABS NUCLEATED RBCS (test cod e = 54402) 0.00 K/UL Delfino OrtaCOMPREHENSIVE METABOLIC [id number] 00:00:00* Test Item Value Reference Range Interpretation Comme nts GLUCOSE (test code = 2217) 83 MG/DL BUN (test code = 2208) 24 MG/DL CREATININE (test code = 2214) 1.32 MG/DL eGFR (2020 CKD-EPI) (test co de = 86866) 46 ML/MIN/1.73 CALC BUN/CREAT (test code = [...] = 2219) 13 U/L Delfino OrtaCD4/CD8 LYMPHOCYTE [id number] 00:00:00* Test Item Value Reference Range Interpretation Comme nts ABSOLUTE LYMPHOCYTES (test c ode = 45145) 877 PERUL PERCENT CD4 (test code = 56528) 22.4 % ABSOLUTE CD4 (test code = 87163) 196 PERUL PERCENT CD8 (test code = 30113) 58.8 % ABSOLUTE CD8 (test code = 96696) 515 PERUL CD4/CD8 RATIO (test code = 76423) 0.38 Delfino OrtaHIV-1 QUANT, [id number] 00:00:00* Test Item Value Reference Range Interpretation Comme nts HIV-1 VIRAL COPY (test code = 4141) 619 COPIES/ML HIV-1 VIRAL LOG (test code = 01836) 2.792 LOGCOPIES/ML Delfino OrtaHEMOGLOBIN A1c [ADDED]2023-09-11 00:00:00* Test Item Value Reference Range Interpretation Comme nts HEMOGLOBIN A1c (test code = 61010) 5.6 % Delfino OrtaCBC W/AUTO [id number] 00:00:00* Test Item Value Reference Range Interpretation [...] ABS NUCLEATED RBCS (test cod e = 52565) 0.00 K/UL Delfino OrtaCOMPREHENSIVE METABOLIC [id number] 00:00:00* Test Item Value Reference Range Interpretation Comme nts GLUCOSE (test code = 2217) 83 MG/DL BUN (test code = 2208) 24 MG/DL CREATININE (test code = 2214) 1.32 MG/DL eGFR (2020 CKD-EPI) (test co de = 81680) 46 ML/MIN/1.73 CALC BUN/CREAT (test code = [...] = 2219) 13 U/L Delfino OrtaCD4/CD8 LYMPHOCYTE [id number] 00:00:00* Test Item Value Reference Range Interpretation Comme nts ABSOLUTE LYMPHOCYTES (test c ode = 00997) 877 PERUL PERCENT CD4 (test code = 05921) 22.4 % ABSOLUTE CD4 (test code = 22642) 196 PERUL PERCENT CD8 (test code = 94311) 58.8 % ABSOLUTE CD8 (test code = 06055) 515 PERUL CD4/CD8 RATIO (test code = 84916) 0.38 Delfino OrtaHIV-1 QUANT, [id number] 00:00:00* Test Item Value Reference Range Interpretation Comme nts HIV-1 VIRAL COPY (test code = 4141) 619 COPIES/ML HIV-1 VIRAL LOG (test code = 27172) 2.792 LOGCOPIES/ML Delfino OrtaHEMOGLOBIN A1c [ADDED]2023-09-11 00:00:00* Test Item Value Reference Range Interpretation Comme nts HEMOGLOBIN A1c (test code = 11258) 5.6 % Delfino OrtaCBC W/AUTO [id number] 00:00:00* Test Item Value Reference Range Interpretation [...] ABS NUCLEATED RBCS (test cod e = 81491) 0.00 K/UL Delfino Endy YouCOMPREHENSIVE METABOLIC [id number] 00:00:00* Test Item Value Reference Range Interpretation Comme nts GLUCOSE (test code = 2217) 83 MG/DL BUN (test code = 2208) 24 MG/DL CREATININE (test code = 2214) 1.32 MG/DL eGFR (2020 CKD-EPI) (test co de = 26420) 46 ML/MIN/1.73 CALC BUN/CREAT (test code = [...] = 2219) 13 U/L Delfino OrtaCD4/CD8 LYMPHOCYTE [id number] 00:00:00* Test Item Value Reference Range Interpretation Comme nts ABSOLUTE LYMPHOCYTES (test c ode = 60605) 877 PERUL PERCENT CD4 (test code = 39398) 22.4 % ABSOLUTE CD4 (test code = 48137) 196 PERUL PERCENT CD8 (test code = 58079) 58.8 % ABSOLUTE CD8 (test code = 22894) 515 PERUL CD4/CD8 RATIO (test code = 70636) 0.38 Delfino OrtaHIV-1 QUANT, [id number] 00:00:00* Test Item Value Reference Range Interpretation Comme [facility] HIV-1 VIRAL COPY (test code = 4141) 619 COPIES/ML HIV-1 VIRAL LOG (test code = 12158) 2.792 LOGCOPIES/ML Delfino OrtaHEMOGLOBIN A1c [ADDED]2023-09-11 00:00:00* Test Item Value Reference Range Interpretation Comme nts HEMOGLOBIN A1c (test code = 68571) 5.6 % Delfino OrtaCBC W/AUTO [id number] 00:00:00* Test Item Value Reference Range Interpretation [...] ABS NUCLEATED RBCS (test cod e = 71475) 0.00 K/UL Delfino OrtaCOMPREHENSIVE METABOLIC [id number] 00:00:00* Test Item Value Reference Range Interpretation Comme nts GLUCOSE (test code = 2217) 83 MG/DL BUN (test code = 2208) 24 MG/DL CREATININE (test code = 2214) 1.32 MG/DL eGFR (2020 CKD-EPI) (test co de = 96385) 46 ML/MIN/1.73 CALC BUN/CREAT (test code = [...] = 2219) 13 U/L Delfino OrtaCD4/CD8 LYMPHOCYTE [id number] 00:00:00* Test Item Value Reference Range Interpretation Comme nts ABSOLUTE LYMPHOCYTES (test c ode = 70904) 877 PERUL PERCENT CD4 (test code = 52982) 22.4 % ABSOLUTE CD4 (test code = 38379) 196 PERUL PERCENT CD8 (test code = 68324) 58.8 % ABSOLUTE CD8 (test code = 26468) 515 PERUL CD4/CD8 RATIO (test code = 05309) 0.38 Delfino OrtaHIV-1 QUANT, [id number] 00:00:00* Test Item Value Reference Range Interpretation Comme carlito HIV-1 VIRAL COPY (test code = 4141) 619 COPIES/ML HIV-1 VIRAL LOG (test code = 01439) 2.792 LOGCOPIES/ML Delfino OrtaHEMOGLOBIN A1c [ADDED]2023-09-11 00:00:00* Test Item Value Reference Range Interpretation Comme [facility] HEMOGLOBIN A1c (test code = 04802) 5.6 % Delfino OrtaCBC W/AUTO [id number] 00:00:00* Test Item Value Reference Range Interpretation [...] ABS NUCLEATED RBCS (test cod e = 55818) 0.00 K/UL ANGEL Mark2024-07-19 09:15:45SPECIMEN NUMBER: [id number] CULTURE, URINE SPECIMEN NUMBER: [id number] SPECIMEN COMMENT: URINE SOURCE: URINE REPORT STATUS: FINAL FINAL REPORT: 08/30/2023 10-100,000 CFU/ML MIXED MICROBIAL POPULATION PRESENT, NO PREDOMINATING ORGANISMS;PROBABLE CONTAMINANTS. UNLESS OTHERWISE INDICATED, ALL TESTING PERFORMED AT [facility] [address] [place] [address] SPANISH INTERPRETER/TRANSLATOR:ABBI SHORT M.D. CLIA NUMBER [id number] [facility] [place]. [id number], [id number] 00:00:00* Test Item Value Reference Range Interpretation Comme nts CULTURE, URINE (test code = 31813) SPECIMEN NUMBER: [id number] Delfino Cedeño [id number] 00:00:00* Test Item Value Reference Range Interpretation Comme nts CULTURE, URINE (test code = 78436) SPECIMEN NUMBER: [id number] Delfino Cedeño [id number] 00:00:00* Test Item Value Reference Range Interpretation Comme nts CULTURE, URINE (test code = 87760) SPECIMEN NUMBER: [id number] Delfino Cedeño [id number] 00:00:00* Test Item Value Reference Range Interpretation Comme nts CULTURE, URINE (test code = 16432) SPECIMEN NUMBER: [id number] Delfino Cedeño [id number] 00:00:00* Test Item Value Reference Range Interpretation Comme nts CULTURE, URINE (test code = 93989) SPECIMEN NUMBER: [id number] Delfino Cedeño, [id number] 00:00:00* Test Item Value Reference Range Interpretation Comme nts CULTURE, URINE (test code = 35968) SPECIMEN NUMBER: [id number] Delfino Cedeño [id number] 00:00:00* Test Item Value Reference Range Interpretation Comme nts CULTURE, URINE (test code = 16111) SPECIMEN NUMBER: [id number] Delfino Cedeño [id number] 00:00:00* Test Item Value Reference Range Interpretation Comme nts CULTURE, URINE (test code = 04241) SPECIMEN NUMBER: [id number] Delfino Cedeño [id number] 00:00:00* Test Item Value Reference Range Interpretation Comme nts CULTURE, URINE (test code = 59836) SPECIMEN NUMBER: [id number] Delfino Cedeño, [id number] 00:00:00* Test Item Value Reference Range Interpretation Comme nts CULTURE, URINE (test code = 77136) SPECIMEN NUMBER: [id number] Delfino Cedeño [id number] 00:00:00* Test Item Value Reference Range Interpretation Comme nts CULTURE, URINE (test code = 63569) SPECIMEN NUMBER: [id number] Delfino Cedeño [id number] 00:00:00* Test Item Value Reference Range Interpretation Comme nts CULTURE, URINE (test code = 58489) SPECIMEN NUMBER: [id number] Delfino Cedeño [id number] 00:00:00* Test Item Value Reference Range Interpretation Comme nts CULTURE, URINE (test code = 67992) SPECIMEN NUMBER: [id number] Delfino OrtaREFERRAL- REQUEST/[id number] 15:45:25Ordered by an unspecified provider.[facility] INTEGRASE INHIBITOR [id number] 11:03:25* Test Item Value Reference Range Interpretation Comments BICTEGRAVIR (test code = 351675) Susceptible CABOTEGRAVIR (test code = 520904) Susceptible DOLUTEGRAVIR (test code = 75043) Susceptible ELVITEGRAVIR (test code = 75278) Susceptible RALTEGRAVIR (test code = 00073) Susceptible DRUG RESIST MUTATIONS (test code = 768802) INSTI (test code = 56032) None ACC RESIST MUTATIONS (test code = 921811) ACCESSORY MUT: (test code = 59918) None OTHER MUTATIONS (test code = 740953) INSTI (test code = 84355) SEE BELOW HIV-1 SUBTYPE (test code = 817840) B [place] HIVDB [place] (test code = 291562) HIVDB_9.6 Other Mutations (INSTI): S24G, A38R, L45S, [...] with the ARV. Methodology:Testing methodology is reverse criminology teacher polymerase chainreaction (RT-PCR) and next-generation sequencing (NGS) of theintegrase (IN) region of the HIV-1 polymerase (carolynn) gene. HIV-1integrase inhibitor resistance mutations and associatedsusceptibility interpretations are assigned relative to the HIV-1subtype B consensus sequence utilizing the genotypic resistanceinterpretation algorithm of the [place] HIV Drug ResistanceDatabase (HIVDB). This test detects HIV-1 drug resistance mutations at a frequencyas low as 10%, which may account for differences in resistanceinterpretations between methods. Test results should be used andinterpreted in the context of clinical findings and other laboratorytest results. Disclaimer:This test was developed and its performance characteristicsdetermined by [facility] ([facility] It has not beencleared or approved by the U.S. Food and Drug Administration (FDA).The FDA has determined that such clearance or approval is notnecessary. This test is used for clinical purposes and should not beregarded as investigational or for research. [facility] is qualified toperform high complexity testing under the Clinical LaboratoryImprovement Amendments (CLIA). TESTING PERFORMED AT [facility] [address] [facility] [address], [address] [address] CLIA NO: [id number] UNLESS OTHERWISE INDICATED, ALL TESTING PERFORMED AT [facility] [address] [place] [address] SPANISH INTERPRETER/TRANSLATOR: ABBI SHORT M.D. CLIA NUMBER [id number] [facility] [place]. [id number] HIV-1 INTEGRASE INHIBITOR [id number] 00:00:00* Test Item Value Reference Range Interpretation Comme nts BICTEGRAVIR (test code = 993385) Susceptible CABOTEGRAVIR (test code = 260568) Susceptible DOLUTEGRAVIR (test code = 45208) Susceptible ELVITEGRAVIR (test code = 94900) Susceptible RALTEGRAVIR (test code = 50227) Susceptible DRUG RESIST MUTATIONS (test code = 043960) INSTI (test code = 79724) None ACC RESIST MUTATIONS (test c ode = 881395) ACCESSORY MUT: (test code = 37656) None OTHER MUTATIONS (test code = 453939) INSTI (test code = 89310) SEE BELOW HIV-1 SUBTYPE (test code = 608086) B [place] HIVDB [place] (test cod e = 511140) HIVDB_9.6 Delfino OrtaHIV-1 INTEGRASE INHIBITOR [id number] 00:00:00* Test Item Value Reference Range Interpretation Comme nts BICTEGRAVIR (test code = 029871) Susceptible CABOTEGRAVIR (test code = 745988) Susceptible DOLUTEGRAVIR (test code = 50831) Susceptible ELVITEGRAVIR (test code = 46572) Susceptible RALTEGRAVIR (test code = 05714) Susceptible DRUG RESIST MUTATIONS (test code = 928151) INSTI (test code = 12585) None ACC RESIST MUTATIONS (test c ode = 368283) ACCESSORY MUT: (test code = 33854) None OTHER MUTATIONS (test code = 053960) INSTI (test code = 56918) SEE BELOW HIV-1 SUBTYPE (test code = 051808) [place] HIVDB [place] (test cod e = 531403) HIVDB_9.6 Delfino Schumacher AustinHIV-1 INTEGRASE INHIBITOR [id number] 00:00:00* Test Item Value Reference Range Interpretation Comme nts BICTEGRAVIR (test code = 371925) Susceptible CABOTEGRAVIR (test code = 688526) Susceptible DOLUTEGRAVIR (test code = 96196) Susceptible ELVITEGRAVIR (test code = 08029) Susceptible RALTEGRAVIR (test code = 77481) Susceptible DRUG RESIST MUTATIONS (test code = 921062) INSTI (test code = 45553) None ACC RESIST MUTATIONS (test c ode = 294221) ACCESSORY MUT: (test code = 08328) None OTHER MUTATIONS (test code = 759063) INSTI (test code = 28231) SEE BELOW HIV-1 SUBTYPE (test code = 474985) [place] HIVDB [place] (test cod e = 256919) HIVDB_9.6 Delfino Schumacher AustinHIV-1 INTEGRASE INHIBITOR [id number] 00:00:00* Test Item Value Reference Range Interpretation Comme nts BICTEGRAVIR (test code = 884677) Susceptible CABOTEGRAVIR (test code = 265126) Susceptible DOLUTEGRAVIR (test code = 50401) Susceptible ELVITEGRAVIR (test code = 17253) Susceptible RALTEGRAVIR (test code = 31712) Susceptible DRUG RESIST MUTATIONS (test code = 029445) INSTI (test code = 98408) None ACC RESIST MUTATIONS (test c ode = 643209) ACCESSORY MUT: (test code = 89929) None OTHER MUTATIONS (test code = 852858) INSTI (test code = 21076) SEE BELOW HIV-1 SUBTYPE (test code = 999922) [place] HIVDB [place] (test cod e = 852819) HIVDB_9.6 Delfino Schumacher AustinHIV-1 INTEGRASE INHIBITOR [id number] 00:00:00* Test Item Value Reference Range Interpretation Comme nts BICTEGRAVIR (test code = 230960) Susceptible CABOTEGRAVIR (test code = 528522) Susceptible DOLUTEGRAVIR (test code = 34431) Susceptible ELVITEGRAVIR (test code = 71138) Susceptible RALTEGRAVIR (test code = 21822) Susceptible DRUG RESIST MUTATIONS (test code = 744124) INSTI (test code = 23351) None ACC RESIST MUTATIONS (test c ode = 732894) ACCESSORY MUT: (test code = 42441) None OTHER MUTATIONS (test code = 554116) INSTI (test code = 18311) SEE BELOW HIV-1 SUBTYPE (test code = 656559) [place] HIVDB [place] (test cod e = 027024) HIVDB_9.6 Delfino OrtaHIV-1 INTEGRASE INHIBITOR [id number] 00:00:00* Test Item Value Reference Range Interpretation Comme nts BICTEGRAVIR (test code = 008817) Susceptible CABOTEGRAVIR (test code = 238346) Susceptible DOLUTEGRAVIR (test code = 70716) Susceptible ELVITEGRAVIR (test code = 65618) Susceptible RALTEGRAVIR (test code = 65113) Susceptible DRUG RESIST MUTATIONS (test code = 780425) INSTI (test code = 26159) None ACC RESIST MUTATIONS (test c ode = 493819) ACCESSORY MUT: (test code = 94897) None OTHER MUTATIONS (test code = 584127) INSTI (test code = 34252) SEE BELOW HIV-1 SUBTYPE (test code = 363958) [place] HIVDB [place] (test cod e = 398938) HIVDB_9.6 Delfino Schumacher AustinHIV-1 INTEGRASE INHIBITOR [id number] 00:00:00* Test Item Value Reference Range Interpretation Comme nts BICTEGRAVIR (test code = 256184) Susceptible CABOTEGRAVIR (test code = 458749) Susceptible DOLUTEGRAVIR (test code = 95397) Susceptible ELVITEGRAVIR (test code = 32254) Susceptible RALTEGRAVIR (test code = 25246) Susceptible DRUG RESIST MUTATIONS (test code = 422742) INSTI (test code = 14317) None ACC RESIST MUTATIONS (test c ode = 469279) ACCESSORY MUT: (test code = 04398) None OTHER MUTATIONS (test code = 014750) INSTI (test code = 99525) SEE BELOW HIV-1 SUBTYPE (test code = 669202) [place] HIVDB [place] (test cod e = 757202) HIVDB_9.6 Delfino OrtaHIV-1 INTEGRASE INHIBITOR [id number] 00:00:00* Test Item Value Reference Range Interpretation Comme nts BICTEGRAVIR (test code = 550471) Susceptible CABOTEGRAVIR (test code = 491935) Susceptible DOLUTEGRAVIR (test code = 82739) Susceptible ELVITEGRAVIR (test code = 19859) Susceptible RALTEGRAVIR (test code = 17736) Susceptible DRUG RESIST MUTATIONS (test code = 397943) INSTI (test code = 94821) None ACC RESIST MUTATIONS (test c ode = 941691) ACCESSORY MUT: (test code = 00757) None OTHER MUTATIONS (test code = 940049) INSTI (test code = 99348) SEE BELOW HIV-1 SUBTYPE (test code = 626732) [place] HIVDB [place] (test cod e = 798075) HIVDB_9.6 Delfino Schumacher AustinHIV-1 INTEGRASE INHIBITOR [id number] 00:00:00* Test Item Value Reference Range Interpretation Comme nts BICTEGRAVIR (test code = 378467) Susceptible CABOTEGRAVIR (test code = 026940) Susceptible DOLUTEGRAVIR (test code = 56259) Susceptible ELVITEGRAVIR (test code = 35523) Susceptible RALTEGRAVIR (test code = 20846) Susceptible DRUG RESIST MUTATIONS (test code = 177989) INSTI (test code = 67721) None ACC RESIST MUTATIONS (test c ode = 389711) ACCESSORY MUT: (test code = 80507) None OTHER MUTATIONS (test code = 021785) INSTI (test code = 06719) SEE BELOW HIV-1 SUBTYPE (test code = 947845) [place] HIVDB [place] (test cod e = 383806) HIVDB_9.6 Delfino OrtaHIV-1 INTEGRASE INHIBITOR [id number] 00:00:00* Test Item Value Reference Range Interpretation Comme nts BICTEGRAVIR (test code = 279614) Susceptible CABOTEGRAVIR (test code = 838994) Susceptible DOLUTEGRAVIR (test code = 34757) Susceptible ELVITEGRAVIR (test code = 14999) Susceptible RALTEGRAVIR (test code = 22204) Susceptible DRUG RESIST MUTATIONS (test code = 518574) INSTI (test code = 16305) None ACC RESIST MUTATIONS (test c ode = 827935) ACCESSORY MUT: (test code = 20235) None OTHER MUTATIONS (test code = 621287) INSTI (test code = 36679) SEE BELOW HIV-1 SUBTYPE (test code = 826993) [place] HIVDB [place] (test cod e = 660681) HIVDB_9.6 Delfino Schumacher AustinHIV-1 INTEGRASE INHIBITOR [id number] 00:00:00* Test Item Value Reference Range Interpretation Comme nts BICTEGRAVIR (test code = 879814) Susceptible CABOTEGRAVIR (test code = 641249) Susceptible DOLUTEGRAVIR (test code = 67023) Susceptible ELVITEGRAVIR (test code = 67063) Susceptible RALTEGRAVIR (test code = 29050) Susceptible DRUG RESIST MUTATIONS (test code = 242718) INSTI (test code = 80017) None ACC RESIST MUTATIONS (test c ode = 387954) ACCESSORY MUT: (test code = 15001) None OTHER MUTATIONS (test code = 073051) INSTI (test code = 05883) SEE BELOW HIV-1 SUBTYPE (test code = 827693) [place] HIVDB [place] (test cod e = 680293) HIVDB_9.6 Delfino Schumacher AustinHIV-1 INTEGRASE INHIBITOR [id number] 00:00:00* Test Item Value Reference Range Interpretation Comme nts BICTEGRAVIR (test code = 195873) Susceptible CABOTEGRAVIR (test code = 657982) Susceptible DOLUTEGRAVIR (test code = 04606) Susceptible ELVITEGRAVIR (test code = 22171) Susceptible RALTEGRAVIR (test code = 98378) Susceptible DRUG RESIST MUTATIONS (test code = 417658) INSTI (test code = 72997) None ACC RESIST MUTATIONS (test c ode = 135611) ACCESSORY MUT: (test code = 97578) None OTHER MUTATIONS (test code = 052533) INSTI (test code = 91529) SEE BELOW HIV-1 SUBTYPE (test code = 867265) [place] HIVDB [place] (test cod e = 214727) HIVDB_9.6 Delfino Schumacher AustinHIV-1 INTEGRASE INHIBITOR [id number] 00:00:00* Test Item Value Reference Range Interpretation Comme nts BICTEGRAVIR (test code = 044584) Susceptible CABOTEGRAVIR (test code = 722345) Susceptible DOLUTEGRAVIR (test code = 01359) Susceptible ELVITEGRAVIR (test code = 85759) Susceptible RALTEGRAVIR (test code = 76210) Susceptible DRUG RESIST MUTATIONS (test code = 990979) INSTI (test code = 16626) None ACC RESIST MUTATIONS (test c ode = 944432) ACCESSORY MUT: (test code = 82139) None OTHER MUTATIONS (test code = 376968) INSTI (test code = 15636) SEE BELOW HIV-1 SUBTYPE (test code = 957269) [place] HIVDB [place] (test cod e = 457589) HIVDB_9.6 Delfino Schumacher AustinHIV-1 INTEGRASE INHIBITOR [id number] 00:00:00* Test Item Value Reference Range Interpretation Comme nts BICTEGRAVIR (test code = 273430) Susceptible CABOTEGRAVIR (test code = 839761) Susceptible DOLUTEGRAVIR (test code = 58733) Susceptible ELVITEGRAVIR (test code = 23820) Susceptible RALTEGRAVIR (test code = 17289) Susceptible DRUG RESIST MUTATIONS (test code = 926575) INSTI (test code = 61509) None ACC RESIST MUTATIONS (test c ode = 112754) ACCESSORY MUT: (test code = 84307) None OTHER MUTATIONS (test code = 011738) INSTI (test code = 40456) SEE BELOW HIV-1 SUBTYPE (test code = 422424) [place] HIVDB [place] (test cod e = 286597) HIVDB_9.6 Delfino Schumacher AustinHIV-1 INTEGRASE INHIBITOR [id number] 00:00:00* Test Item Value Reference Range Interpretation Comme nts BICTEGRAVIR (test code = 636492) Susceptible CABOTEGRAVIR (test code = 280138) Susceptible DOLUTEGRAVIR (test code = 30379) Susceptible ELVITEGRAVIR (test code = 78119) Susceptible RALTEGRAVIR (test code = 56569) Susceptible DRUG RESIST MUTATIONS (test code = 051224) INSTI (test code = 43671) None ACC RESIST MUTATIONS (test c ode = 725476) ACCESSORY MUT: (test code = 88643) None OTHER MUTATIONS (test code = 936839) INSTI (test code = 95957) SEE BELOW HIV-1 SUBTYPE (test code = 852343) [place] HIVDB [place] (test cod e = 157206) HIVDB_9.6 Delfino Schumacher AustinHIV-1 INTEGRASE INHIBITOR [id number] 00:00:00* Test Item Value Reference Range Interpretation Comme nts BICTEGRAVIR (test code = 399342) Susceptible CABOTEGRAVIR (test code = 200407) Susceptible DOLUTEGRAVIR (test code = 06617) Susceptible ELVITEGRAVIR (test code = 46655) Susceptible RALTEGRAVIR (test code = 91664) Susceptible DRUG RESIST MUTATIONS (test code = 185303) INSTI (test code = 49240) None ACC RESIST MUTATIONS (test c ode = 629462) ACCESSORY MUT: (test code = 38239) None OTHER MUTATIONS (test code = 548054) INSTI (test code = 16393) SEE BELOW HIV-1 SUBTYPE (test code = 438351) [place] HIVDB [place] (test cod e = 468314) HIVDB_9.6 Delfino Schumacher AustinHIV-1 INTEGRASE INHIBITOR [id number] 00:00:00* Test Item Value Reference Range Interpretation Comme nts BICTEGRAVIR (test code = 640509) Susceptible CABOTEGRAVIR (test code = 801407) Susceptible DOLUTEGRAVIR (test code = 42400) Susceptible ELVITEGRAVIR (test code = 12364) Susceptible RALTEGRAVIR (test code = 56443) Susceptible DRUG RESIST MUTATIONS (test code = 704655) INSTI (test code = 42916) None ACC RESIST MUTATIONS (test c ode = 189399) ACCESSORY MUT: (test code = 27439) None OTHER MUTATIONS (test code = 123533) INSTI (test code = 00227) SEE BELOW HIV-1 SUBTYPE (test code = 479063) [place] HIVDB [place] (test cod e = 274547) HIVDB_9.6 Delfino OrtaHIV-1 INTEGRASE INHIBITOR [id number] 00:00:00* Test Item Value Reference Range Interpretation Comme nts BICTEGRAVIR (test code = 805336) Susceptible CABOTEGRAVIR (test code = 614242) Susceptible DOLUTEGRAVIR (test code = 79623) Susceptible ELVITEGRAVIR (test code = 81898) Susceptible RALTEGRAVIR (test code = 05063) Susceptible DRUG RESIST MUTATIONS (test code = 055338) INSTI (test code = 42950) None ACC RESIST MUTATIONS (test c ode = 272364) ACCESSORY MUT: (test code = 05023) None OTHER MUTATIONS (test code = 174934) INSTI (test code = 95387) SEE BELOW HIV-1 SUBTYPE (test code = 610400) [place] HIVDB [place] (test cod e = 176700) HIVDB_9.6 Delfino Schumacher AustinCD4/CD8 LYMPHOCYTE [id number] 12:40:38* Test Item Value Reference Range Interpretation Comme nts ABSOLUTE LYMPHOCYTES (test code = 41163) 941 PER UL 3353-0643 L Specimen rec eived outside of temperature specifications. Resultsreviewed by Abbi Short M.D. PERCENT CD4 (test code = 19265) 16.3 % 34.0-65.0 L ABSOLUTE CD4 (test code = 49251) 154 PER UL 520-1470 L PERCENT CD8 (test code = 82016) 52.5 % 13.0-38.0 H ABSOLUTE CD8 (test code = 09294) 494 PER UL 205-920 CD4/CD8 RATIO (test code = 63403) 0.31 0.92-3.41 L CD4/CD8 LYMPHOCYTE [id number] 00:00:00* Test Item Value Reference Range Interpretation Comme nts ABSOLUTE LYMPHOCYTES (test c ode = 29537) 941 PERUL PERCENT CD4 (test code = 48281) 16.3 % ABSOLUTE CD4 (test code = 89560) 154 PERUL PERCENT CD8 (test code = 48735) 52.5 % ABSOLUTE CD8 (test code = 12099) 494 PERUL CD4/CD8 RATIO (test code = 22213) 0.31 Delfino Schumacher AustinCD4/CD8 LYMPHOCYTE [id number] 00:00:00* Test Item Value Reference Range Interpretation Comme nts ABSOLUTE LYMPHOCYTES (test c ode = 92654) 941 PERUL PERCENT CD4 (test code = 75192) 16.3 % ABSOLUTE CD4 (test code = 50052) 154 PERUL PERCENT CD8 (test code = 60807) 52.5 % ABSOLUTE CD8 (test code = 20060) 494 PERUL CD4/CD8 RATIO (test code = 22719) 0.31 Delfino Schumacher AustinCD4/CD8 LYMPHOCYTE [id number] 00:00:00* Test Item Value Reference Range Interpretation Comme nts ABSOLUTE LYMPHOCYTES (test c ode = 05332) 941 PERUL PERCENT CD4 (test code = 51134) 16.3 % ABSOLUTE CD4 (test code = 28514) 154 PERUL PERCENT CD8 (test code = 31296) 52.5 % ABSOLUTE CD8 (test code = 97001) 494 PERUL CD4/CD8 RATIO (test code = 15619) 0.31 Deflino Schumacher AustinCD4/CD8 LYMPHOCYTE [id number] 00:00:00* Test Item Value Reference Range Interpretation Comme nts ABSOLUTE LYMPHOCYTES (test c ode = 21424) 941 PERUL PERCENT CD4 (test code = 54746) 16.3 % ABSOLUTE CD4 (test code = 02219) 154 PERUL PERCENT CD8 (test code = 30745) 52.5 % ABSOLUTE CD8 (test code = 92624) 494 PERUL CD4/CD8 RATIO (test code = 48065) 0.31 Delfino Schumacher AustinCD4/CD8 LYMPHOCYTE [id number] 00:00:00* Test Item Value Reference Range Interpretation Comme nts ABSOLUTE LYMPHOCYTES (test c ode = 72560) 941 PERUL PERCENT CD4 (test code = 80268) 16.3 % ABSOLUTE CD4 (test code = 83632) 154 PERUL PERCENT CD8 (test code = 99775) 52.5 % ABSOLUTE CD8 (test code = 93854) 494 PERUL CD4/CD8 RATIO (test code = 70503) 0.31 Delfino Schumacher AustinCD4/CD8 LYMPHOCYTE [id number] 00:00:00* Test Item Value Reference Range Interpretation Comme nts ABSOLUTE LYMPHOCYTES (test c ode = 95820) 941 PERUL PERCENT CD4 (test code = 68941) 16.3 % ABSOLUTE CD4 (test code = 81299) 154 PERUL PERCENT CD8 (test code = 99974) 52.5 % ABSOLUTE CD8 (test code = 42553) 494 PERUL CD4/CD8 RATIO (test code = 44742) 0.31 Delfino Schumacher AustinCD4/CD8 LYMPHOCYTE [id number] 00:00:00* Test Item Value Reference Range Interpretation Comme nts ABSOLUTE LYMPHOCYTES (test c ode = 14269) 941 PERUL PERCENT CD4 (test code = 37246) 16.3 % ABSOLUTE CD4 (test code = 93179) 154 PERUL PERCENT CD8 (test code = 04181) 52.5 % ABSOLUTE CD8 (test code = 71263) 494 [place] CD4/CD8 RATIO (test code = 50354) 0.31 Delfino Schumacher AustinCD4/CD8 LYMPHOCYTE [id number] 00:00:00* Test Item Value Reference Range Interpretation Comme nts ABSOLUTE LYMPHOCYTES (test c ode = 27969) 941 PERUL PERCENT CD4 (test code = 17133) 16.3 % ABSOLUTE CD4 (test code = 67158) 154 PERUL PERCENT CD8 (test code = 14559) 52.5 % ABSOLUTE CD8 (test code = 40293) 494 [place] CD4/CD8 RATIO (test code = 37385) 0.31 Delfino Schumacher AustinCD4/CD8 LYMPHOCYTE [id number] 00:00:00* Test Item Value Reference Range Interpretation Comme nts ABSOLUTE LYMPHOCYTES (test c ode = 10112) 941 PERUL PERCENT CD4 (test code = 86122) 16.3 % ABSOLUTE CD4 (test code = 08690) 154 PERUL PERCENT CD8 (test code = 52625) 52.5 % ABSOLUTE CD8 (test code = 95293) 494 PERUL CD4/CD8 RATIO (test code = 35882) 0.31 Delfino Schumacher AustinCD4/CD8 LYMPHOCYTE [id number] 00:00:00* Test Item Value Reference Range Interpretation Comme nts ABSOLUTE LYMPHOCYTES (test c ode = 65944) 941 PERUL PERCENT CD4 (test code = 31173) 16.3 % ABSOLUTE CD4 (test code = 68227) 154 PERUL PERCENT CD8 (test code = 84481) 52.5 % ABSOLUTE CD8 (test code = 41660) 494 PERUL CD4/CD8 RATIO (test code = 63351) 0.31 Delfino Schumacher AustinCD4/CD8 LYMPHOCYTE [id number] 00:00:00* Test Item Value Reference Range Interpretation Comme nts ABSOLUTE LYMPHOCYTES (test c ode = 62656) 941 PERUL PERCENT CD4 (test code = 70513) 16.3 % ABSOLUTE CD4 (test code = 49063) 154 PERUL PERCENT CD8 (test code = 81345) 52.5 % ABSOLUTE CD8 (test code = 15732) 494 PERUL CD4/CD8 RATIO (test code = 75837) 0.31 Delfino Schumacher AustinCD4/CD8 LYMPHOCYTE [id number] 00:00:00* Test Item Value Reference Range Interpretation Comme nts ABSOLUTE LYMPHOCYTES (test c ode = 81570) 941 PERUL PERCENT CD4 (test code = 72677) 16.3 % ABSOLUTE CD4 (test code = 89233) 154 PERUL PERCENT CD8 (test code = 99911) 52.5 % ABSOLUTE CD8 (test code = 41328) 494 PERUL CD4/CD8 RATIO (test code = 34077) 0.31 Delfino Schumacher AustinCD4/CD8 LYMPHOCYTE [id number] 00:00:00* Test Item Value Reference Range Interpretation Comme nts ABSOLUTE LYMPHOCYTES (test c ode = 21284) 941 PERUL PERCENT CD4 (test code = 49398) 16.3 % ABSOLUTE CD4 (test code = 69204) 154 PERUL PERCENT CD8 (test code = 08277) 52.5 % ABSOLUTE CD8 (test code = 25450) 494 PERUL CD4/CD8 RATIO (test code = 15954) 0.31 Delfino Schumacher AustinCD4/CD8 LYMPHOCYTE [id number] 00:00:00* Test Item Value Reference Range Interpretation Comme nts ABSOLUTE LYMPHOCYTES (test c ode = 17000) 941 PERUL PERCENT CD4 (test code = 74573) 16.3 % ABSOLUTE CD4 (test code = 77771) 154 PERUL PERCENT CD8 (test code = 74854) 52.5 % ABSOLUTE CD8 (test code = 37433) 494 PERUL CD4/CD8 RATIO (test code = 67872) 0.31 Delfino Schumacher AustinCD4/CD8 LYMPHOCYTE [id number] 00:00:00* Test Item Value Reference Range Interpretation Comme nts ABSOLUTE LYMPHOCYTES (test c ode = 19719) 941 PERUL PERCENT CD4 (test code = 06927) 16.3 % ABSOLUTE CD4 (test code = 31383) 154 PERUL PERCENT CD8 (test code = 09262) 52.5 % ABSOLUTE CD8 (test code = 10478) 494 PERUL CD4/CD8 RATIO (test code = 75292) 0.31 Delfino Schumacher AustinCD4/CD8 LYMPHOCYTE [id number] 00:00:00* Test Item Value Reference Range Interpretation Comme nts ABSOLUTE LYMPHOCYTES (test c ode = 61366) 941 PERUL PERCENT CD4 (test code = 43636) 16.3 % ABSOLUTE CD4 (test code = 76742) 154 PERUL PERCENT CD8 (test code = 37251) 52.5 % ABSOLUTE CD8 (test code = 56538) 494 PERUL CD4/CD8 RATIO (test code = 20736) 0.31 Delfino Schumacher AustinCD4/CD8 LYMPHOCYTE [id number] 00:00:00* Test Item Value Reference Range Interpretation Comme nts ABSOLUTE LYMPHOCYTES (test c ode = 53946) 941 PERUL PERCENT CD4 (test code = 43026) 16.3 % ABSOLUTE CD4 (test code = 29446) 154 PERUL PERCENT CD8 (test code = 45209) 52.5 % ABSOLUTE CD8 (test code = 50718) 494 PERUL CD4/CD8 RATIO (test code = 04859) 0.31 Delfino Schumacher AustinCD4/CD8 LYMPHOCYTE [id number] 00:00:00* Test Item Value Reference Range Interpretation Comme nts ABSOLUTE LYMPHOCYTES (test c ode = 86974) 941 PERUL PERCENT CD4 (test code = 17969) 16.3 % ABSOLUTE CD4 (test code = 62850) 154 PERUL PERCENT CD8 (test code = 42406) 52.5 % ABSOLUTE CD8 (test code = 57583) 494 PERUL CD4/CD8 RATIO (test code = 97860) 0.31 Delfino Schumacher [facility] W/AUTO DIFF WITH [id number] 11:40:06* Test Item Value Reference Range Interpretation [...] 0.00-0.10 ABS NUCLEATED RBCS (test code = 15787) 0.00 K/UL 0.00-0.11 COMMENTS (test code = 1016) (NOTE) MODERATE MACROCY TOSIS SLIGHT TOXIC GRANULATION PLATELETS APPEAR NORMAL SEE ADDITIONAL COMMENTS BELOW: SLIGHT VACUOLIZATION OF NEUTROPHILS COMPREHENSIVE METABOLIC [id number] 05:24:56* Test Item Value Reference Range Interpretation Comme nts GLUCOSE (test code = 2216) 90 MG/DL 70-99 BUN (test code = 2207) 40 MG/DL 8-23 H CREATININE (test code = 221) 2.05 MG/DL 0.60-1.30 H eGFR (2020 CKD-EPI) (test co de = 26008) 27 ML/MIN/1.73 >60 L CALC BUN/CREAT (test [...] code = 2219) 16 U/L 5-40 LIPID [id number] 05:24:56* Test Item Value Reference Range Interpretation [...] SPECIMENS. FOR MOREINFORMATION, SEE CLIENT ANNOUNCEMENT AT [email or web address] RISK RATIO LDL/HDL (test code = 2238) 0.91 RATIO <3.22 LIPID [id number] 00:00:00* Test Item Value Reference Range Interpretation Comme nts CHOLESTEROL (test code = 2210) 212 MG/DL TRIGLYCERIDES (test code = 2232) 80 MG/DL HDL CHOLESTEROL (test code = 2220) 102 MG/DL CALC LDL CHOL (test code = 2237) 93 MG/DL RISK RATIO LDL/HDL (test cod e = 2238) 0.91 RATIO Delfino Schumacher AustinCBC W/AUTO [id number] 00:00:00* Test Item Value Reference Range Interpretation [...] ABS NUCLEATED RBCS (test cod e = 74498) 0.00 K/UL COMMENTS (test code = 1016) (NOTE) Delfino OrtaCOMPREHENSIVE METABOLIC [id number] 00:00:00* Test Item Value Reference Range Interpretation Comme nts GLUCOSE (test code = 2217) 90 MG/DL BUN (test code = 2208) 40 MG/DL CREATININE (test code = 2214) 2.05 MG/DL eGFR (2020 CKD-EPI) (test co de = 44612) 27 ML/MIN/1.73 CALC BUN/CREAT (test code = [...] code = 2219) 16 U/L Delfino OrtaLIPID [id number] 00:00:00* Test Item Value Reference Range Interpretation Comme nts CHOLESTEROL (test code = 2210) 212 MG/DL TRIGLYCERIDES (test code = 2232) 80 MG/DL HDL CHOLESTEROL (test code = 2220) 102 MG/DL CALC LDL CHOL (test code = 2237) 93 MG/DL RISK RATIO LDL/HDL (test cod e = 2238) 0.91 RATIO Delfino OrtaCBC W/AUTO [id number] 00:00:00* Test Item Value Reference Range Interpretation [...] ABS NUCLEATED RBCS (test cod e = 63182) 0.00 K/UL COMMENTS (test code = 1016) (NOTE) Delfino OrtaCOMPREHENSIVE METABOLIC [id number] 00:00:00* Test Item Value Reference Range Interpretation Comme nts GLUCOSE (test code = 2217) 90 MG/DL BUN (test code = 2208) 40 MG/DL CREATININE (test code = 2214) 2.05 MG/DL eGFR (2020 CKD-EPI) (test co de = 81800) 27 ML/MIN/1.73 CALC BUN/CREAT (test code = [...] code = 2219) 16 U/L Delfino OrtaLIPID [id number] 00:00:00* Test Item Value Reference Range Interpretation Comme nts CHOLESTEROL (test code = 2210) 212 MG/DL TRIGLYCERIDES (test code = 2232) 80 MG/DL HDL CHOLESTEROL (test code = 2220) 102 MG/DL CALC LDL CHOL (test code = 2237) 93 MG/DL RISK RATIO LDL/HDL (test cod e = 2238) 0.91 RATIO Delfino OrtaCBC W/AUTO [id number] 00:00:00* Test Item Value Reference Range Interpretation [...] ABS NUCLEATED RBCS (test cod e = 72155) 0.00 K/UL COMMENTS (test code = 1016) (NOTE) Delfino OrtaCOMPREHENSIVE METABOLIC [id number] 00:00:00* Test Item Value Reference Range Interpretation Comme nts GLUCOSE (test code = 2217) 90 MG/DL BUN (test code = 2208) 40 MG/DL CREATININE (test code = 2214) 2.05 MG/DL eGFR (2020 CKD-EPI) (test co de = 73596) 27 ML/MIN/1.73 CALC BUN/CREAT (test code = [...] code = 2219) 16 U/L Delfino OrtaLIPID [id number] 00:00:00* Test Item Value Reference Range Interpretation Comme nts CHOLESTEROL (test code = 2210) 212 MG/DL TRIGLYCERIDES (test code = 2232) 80 MG/DL HDL CHOLESTEROL (test code = 2220) 102 MG/DL CALC LDL CHOL (test code = 2237) 93 MG/DL RISK RATIO LDL/HDL (test cod e = 2238) 0.91 RATIO Delfino OrtaCBC W/AUTO [id number] 00:00:00* Test Item Value Reference Range Interpretation [...] ABS NUCLEATED RBCS (test cod e = 27956) 0.00 K/UL COMMENTS (test code = 1016) (NOTE) Delfino OrtaCOMPREHENSIVE METABOLIC [id number] 00:00:00* Test Item Value Reference Range Interpretation Comme nts GLUCOSE (test code = 2217) 90 MG/DL BUN (test code = 2208) 40 MG/DL CREATININE (test code = 2214) 2.05 MG/DL eGFR (2020 CKD-EPI) (test co de = 52575) 27 ML/MIN/1.73 CALC BUN/CREAT (test code = [...] code = 2219) 16 U/L Delfino OrtaLIPID [id number] 00:00:00* Test Item Value Reference Range Interpretation Comme nts CHOLESTEROL (test code = 2210) 212 MG/DL TRIGLYCERIDES (test code = 2232) 80 MG/DL HDL CHOLESTEROL (test code = 2220) 102 MG/DL CALC LDL CHOL (test code = 2237) 93 MG/DL RISK RATIO LDL/HDL (test cod e = 2238) 0.91 RATIO Delfino OrtaCBC W/AUTO [id number] 00:00:00* Test Item Value Reference Range Interpretation [...] ABS NUCLEATED RBCS (test cod e = 17901) 0.00 K/UL COMMENTS (test code = 1016) (NOTE) Delfino OrtaCOMPREHENSIVE METABOLIC [id number] 00:00:00* Test Item Value Reference Range Interpretation Comme nts GLUCOSE (test code = 2217) 90 MG/DL BUN (test code = 2208) 40 MG/DL CREATININE (test code = 2214) 2.05 MG/DL eGFR (2020 CKD-EPI) (test co de = 85678) 27 ML/MIN/1.73 CALC BUN/CREAT (test code = [...] code = 2219) 16 U/L Delfino OrtaLIPID [id number] 00:00:00* Test Item Value Reference Range Interpretation Comme nts CHOLESTEROL (test code = 2210) 212 MG/DL TRIGLYCERIDES (test code = 2232) 80 MG/DL HDL CHOLESTEROL (test code = 2220) 102 MG/DL CALC LDL CHOL (test code = 2237) 93 MG/DL RISK RATIO LDL/HDL (test cod e = 2238) 0.91 RATIO Delfino OrtaCBC W/AUTO [id number] 00:00:00* Test Item Value Reference Range Interpretation [...] ABS NUCLEATED RBCS (test cod e = 80136) 0.00 K/UL COMMENTS (test code = 1016) (NOTE) Delfino OrtaCOMPREHENSIVE METABOLIC [id number] 00:00:00* Test Item Value Reference Range Interpretation Comme nts GLUCOSE (test code = 2217) 90 MG/DL BUN (test code = 2208) 40 MG/DL CREATININE (test code = 2214) 2.05 MG/DL eGFR (2020 CKD-EPI) (test co de = 55888) 27 ML/MIN/1.73 CALC BUN/CREAT (test code = [...] code = 2219) 16 U/L Delfino OrtaLIPID [id number] 00:00:00* Test Item Value Reference Range Interpretation Comme nts CHOLESTEROL (test code = 2210) 212 MG/DL TRIGLYCERIDES (test code = 2232) 80 MG/DL HDL CHOLESTEROL (test code = 2220) 102 MG/DL CALC LDL CHOL (test code = 2237) 93 MG/DL RISK RATIO LDL/HDL (test cod e = 2238) 0.91 RATIO Delfino OrtaCBC W/AUTO [id number] 00:00:00* Test Item Value Reference Range Interpretation [...] ABS NUCLEATED RBCS (test cod e = 47563) 0.00 K/UL COMMENTS (test code = 1016) (NOTE) Delfino OrtaCOMPREHENSIVE METABOLIC [id number] 00:00:00* Test Item Value Reference Range Interpretation Comme nts GLUCOSE (test code = 2217) 90 MG/DL BUN (test code = 2208) 40 MG/DL CREATININE (test code = 2214) 2.05 MG/DL eGFR (2020 CKD-EPI) (test co de = 30474) 27 ML/MIN/1.73 CALC BUN/CREAT (test code = [...] code = 2219) 16 U/L Delfino OrtaLIPID [id number] 00:00:00* Test Item Value Reference Range Interpretation Comme nts CHOLESTEROL (test code = 2210) 212 MG/DL TRIGLYCERIDES (test code = 2232) 80 MG/DL HDL CHOLESTEROL (test code = 2220) 102 MG/DL CALC LDL CHOL (test code = 2237) 93 MG/DL RISK RATIO LDL/HDL (test cod e = 2238) 0.91 RATIO Delfino OrtaCBC W/AUTO [id number] 00:00:00* Test Item Value Reference Range Interpretation [...] ABS NUCLEATED RBCS (test cod e = 83577) 0.00 K/UL COMMENTS (test code = 1016) (NOTE) Delfino OrtaCOMPREHENSIVE METABOLIC [id number] 00:00:00* Test Item Value Reference Range Interpretation Comme nts GLUCOSE (test code = 2217) 90 MG/DL BUN (test code = 2208) 40 MG/DL CREATININE (test code = 2214) 2.05 MG/DL eGFR (2020 CKD-EPI) (test co de = 00599) 27 ML/MIN/1.73 CALC BUN/CREAT (test code = [...] code = 2219) 16 U/L Delfino OrtaLIPID [id number] 00:00:00* Test Item Value Reference Range Interpretation Comme nts CHOLESTEROL (test code = 2210) 212 MG/DL TRIGLYCERIDES (test code = 2232) 80 MG/DL HDL CHOLESTEROL (test code = 2220) 102 MG/DL CALC LDL CHOL (test code = 2237) 93 MG/DL RISK RATIO LDL/HDL (test cod e = 2238) 0.91 RATIO Delfino OrtaCBC W/AUTO [id number] 00:00:00* Test Item Value Reference Range Interpretation [...] ABS NUCLEATED RBCS (test cod e = 66499) 0.00 K/UL COMMENTS (test code = 1016) (NOTE) Delfino OrtaCOMPREHENSIVE METABOLIC [id number] 00:00:00* Test Item Value Reference Range Interpretation Comme nts GLUCOSE (test code = 2217) 90 MG/DL BUN (test code = 2208) 40 MG/DL CREATININE (test code = 2214) 2.05 MG/DL eGFR (2020 CKD-EPI) (test co de = 80676) 27 ML/MIN/1.73 CALC BUN/CREAT (test code = [...] code = 2219) 16 U/L Delfino OrtaLIPID [id number] 00:00:00* Test Item Value Reference Range Interpretation Comme nts CHOLESTEROL (test code = 2210) 212 MG/DL TRIGLYCERIDES (test code = 2232) 80 MG/DL HDL CHOLESTEROL (test code = 2220) 102 MG/DL CALC LDL CHOL (test code = 2237) 93 MG/DL RISK RATIO LDL/HDL (test cod e = 2238) 0.91 RATIO Delfino OrtaCBC W/AUTO [id number] 00:00:00* Test Item Value Reference Range Interpretation [...] ABS NUCLEATED RBCS (test cod e = 40055) 0.00 K/UL COMMENTS (test code = 1016) (NOTE) Delfino OrtaCOMPREHENSIVE METABOLIC [id number] 00:00:00* Test Item Value Reference Range Interpretation Comme nts GLUCOSE (test code = 2217) 90 MG/DL BUN (test code = 2208) 40 MG/DL CREATININE (test code = 2214) 2.05 MG/DL eGFR (2020 CKD-EPI) (test co de = 97082) 27 ML/MIN/1.73 CALC BUN/CREAT (test code = [...] code = 2219) 16 U/L Delfino OrtaLIPID [id number] 00:00:00* Test Item Value Reference Range Interpretation Comme nts CHOLESTEROL (test code = 2210) 212 MG/DL TRIGLYCERIDES (test code = 2232) 80 MG/DL HDL CHOLESTEROL (test code = 2220) 102 MG/DL CALC LDL CHOL (test code = 2237) 93 MG/DL RISK RATIO LDL/HDL (test cod e = 2238) 0.91 RATIO Delfino OrtaCBC W/AUTO [id number] 00:00:00* Test Item Value Reference Range Interpretation [...] ABS NUCLEATED RBCS (test cod e = 68920) 0.00 K/UL COMMENTS (test code = 1016) (NOTE) Delfino OrtaCOMPREHENSIVE METABOLIC [id number] 00:00:00* Test Item Value Reference Range Interpretation Comme nts GLUCOSE (test code = 2217) 90 MG/DL BUN (test code = 2208) 40 MG/DL CREATININE (test code = 2214) 2.05 MG/DL eGFR (2020 CKD-EPI) (test co de = 64941) 27 ML/MIN/1.73 CALC BUN/CREAT (test code = [...] code = 2219) 16 U/L Delfino OrtaLIPID [id number] 00:00:00* Test Item Value Reference Range Interpretation Comme nts CHOLESTEROL (test code = 2210) 212 MG/DL TRIGLYCERIDES (test code = 2232) 80 MG/DL HDL CHOLESTEROL (test code = 2220) 102 MG/DL CALC LDL CHOL (test code = 2237) 93 MG/DL RISK RATIO LDL/HDL (test cod e = 2238) 0.91 RATIO Delfino OrtaCBC W/AUTO [id number] 00:00:00* Test Item Value Reference Range Interpretation [...] ABS NUCLEATED RBCS (test cod e = 54407) 0.00 K/UL COMMENTS (test code = 1016) (NOTE) Delfino OrtaCOMPREHENSIVE METABOLIC [id number] 00:00:00* Test Item Value Reference Range Interpretation Comme nts GLUCOSE (test code = 2217) 90 MG/DL BUN (test code = 2208) 40 MG/DL CREATININE (test code = 2214) 2.05 MG/DL eGFR (2020 CKD-EPI) (test co de = 25592) 27 ML/MIN/1.73 CALC BUN/CREAT (test code = [...] code = 2219) 16 U/L Delfino OrtaLIPID [id number] 00:00:00* Test Item Value Reference Range Interpretation Comme nts CHOLESTEROL (test code = 2210) 212 MG/DL TRIGLYCERIDES (test code = 2232) 80 MG/DL HDL CHOLESTEROL (test code = 2220) 102 MG/DL CALC LDL CHOL (test code = 2237) 93 MG/DL RISK RATIO LDL/HDL (test cod e = 2238) 0.91 RATIO Delfino OrtaCBC W/AUTO [id number] 00:00:00* Test Item Value Reference Range Interpretation [...] ABS NUCLEATED RBCS (test cod e = 51978) 0.00 K/UL COMMENTS (test code = 1016) (NOTE) Delfino OrtaCOMPREHENSIVE METABOLIC [id number] 00:00:00* Test Item Value Reference Range Interpretation Comme nts GLUCOSE (test code = 2217) 90 MG/DL BUN (test code = 2208) 40 MG/DL CREATININE (test code = 2214) 2.05 MG/DL eGFR (2020 CKD-EPI) (test co de = 76928) 27 ML/MIN/1.73 CALC BUN/CREAT (test code = [...] code = 2219) 16 U/L Delfino OrtaLIPID [id number] 00:00:00* Test Item Value Reference Range Interpretation Comme nts CHOLESTEROL (test code = 2210) 212 MG/DL TRIGLYCERIDES (test code = 2232) 80 MG/DL HDL CHOLESTEROL (test code = 2220) 102 MG/DL CALC LDL CHOL (test code = 2237) 93 MG/DL RISK RATIO LDL/HDL (test cod e = 2238) 0.91 RATIO Delfino OrtaCBC W/AUTO [id number] 00:00:00* Test Item Value Reference Range Interpretation [...] ABS NUCLEATED RBCS (test cod e = 30927) 0.00 K/UL COMMENTS (test code = 1016) (NOTE) Delfino OrtaCOMPREHENSIVE METABOLIC [id number] 00:00:00* Test Item Value Reference Range Interpretation Comme nts GLUCOSE (test code = 2217) 90 MG/DL BUN (test code = 2208) 40 MG/DL CREATININE (test code = 2214) 2.05 MG/DL eGFR (2020 CKD-EPI) (test co de = 70024) 27 ML/MIN/1.73 CALC BUN/CREAT (test code = [...] code = 2219) 16 U/L Delfino OrtaLIPID [id number] 00:00:00* Test Item Value Reference Range Interpretation Comme nts CHOLESTEROL (test code = 2210) 212 MG/DL TRIGLYCERIDES (test code = 2232) 80 MG/DL HDL CHOLESTEROL (test code = 2220) 102 MG/DL CALC LDL CHOL (test code = 2237) 93 MG/DL RISK RATIO LDL/HDL (test cod e = 2238) 0.91 RATIO Delfino OrtaCBC W/AUTO [id number] 00:00:00* Test Item Value Reference Range Interpretation [...] ABS NUCLEATED RBCS (test cod e = 26492) 0.00 K/UL COMMENTS (test code = 1016) (NOTE) Delfino OrtaCOMPREHENSIVE METABOLIC [id number] 00:00:00* Test Item Value Reference Range Interpretation Comme nts GLUCOSE (test code = 2217) 90 MG/DL BUN (test code = 2208) 40 MG/DL CREATININE (test code = 2214) 2.05 MG/DL eGFR (2020 CKD-EPI) (test co de = 74609) 27 ML/MIN/1.73 CALC BUN/CREAT (test code = [...] code = 2219) 16 U/L Delfino OrtaLIPID [id number] 00:00:00* Test Item Value Reference Range Interpretation Comme nts CHOLESTEROL (test code = 2210) 212 MG/DL TRIGLYCERIDES (test code = 2232) 80 MG/DL HDL CHOLESTEROL (test code = 2220) 102 MG/DL CALC LDL CHOL (test code = 2237) 93 MG/DL RISK RATIO LDL/HDL (test cod e = 2238) 0.91 RATIO Delfino Schumacher YouCBC W/AUTO [id number] 00:00:00* Test Item Value Reference Range Interpretation [...] ABS NUCLEATED RBCS (test cod e = 93434) 0.00 K/UL COMMENTS (test code = 1016) (NOTE) Delfino OrtaCOMPREHENSIVE METABOLIC [id number] 00:00:00* Test Item Value Reference Range Interpretation Comme nts GLUCOSE (test code = 2217) 90 MG/DL BUN (test code = 2208) 40 MG/DL CREATININE (test code = 2214) 2.05 MG/DL eGFR (2020 CKD-EPI) (test co de = 30111) 27 ML/MIN/1.73 CALC BUN/CREAT (test code = [...] code = 2219) 16 U/L Delfino OrtaLIPID [id number] 00:00:00* Test Item Value Reference Range Interpretation Comme nts CHOLESTEROL (test code = 2210) 212 MG/DL TRIGLYCERIDES (test code = 2232) 80 MG/DL HDL CHOLESTEROL (test code = 2220) 102 MG/DL CALC LDL CHOL (test code = 2237) 93 MG/DL RISK RATIO LDL/HDL (test cod e = 2238) 0.91 RATIO Delfino OrtaCBC W/AUTO [id number] 00:00:00* Test Item Value Reference Range Interpretation [...] ABS NUCLEATED RBCS (test cod e = 51848) 0.00 K/UL COMMENTS (test code = 1016) (NOTE) Delfino OrtaCOMPREHENSIVE METABOLIC [id number] 00:00:00* Test Item Value Reference Range Interpretation Comme nts GLUCOSE (test code = 2217) 90 MG/DL BUN (test code = 2208) 40 MG/DL CREATININE (test code = 2214) 2.05 MG/DL eGFR (2020 CKD-EPI) (test co de = 75270) 27 ML/MIN/1.73 CALC BUN/CREAT (test code = [...] code = 2219) 16 U/L Delfino OrtaLIPID [id number] 00:00:00* Test Item Value Reference Range Interpretation Comme nts CHOLESTEROL (test code = 2210) 212 MG/DL TRIGLYCERIDES (test code = 2232) 80 MG/DL HDL CHOLESTEROL (test code = 2220) 102 MG/DL CALC LDL CHOL (test code = 2237) 93 MG/DL RISK RATIO LDL/HDL (test cod e = 2238) 0.91 RATIO Delfino OrtaCBC W/AUTO [id number] 00:00:00* Test Item Value Reference Range Interpretation [...] ABS NUCLEATED RBCS (test cod e = 58008) 0.00 K/UL COMMENTS (test code = 1016) (NOTE) Delfino OrtaCOMPREHENSIVE METABOLIC [id number] 00:00:00* Test Item Value Reference Range Interpretation Comme nts GLUCOSE (test code = 2217) 90 MG/DL BUN (test code = 2208) 40 MG/DL CREATININE (test code = 2214) 2.05 MG/DL eGFR (2020 CKD-EPI) (test co de = 68140) 27 ML/MIN/1.73 CALC BUN/CREAT (test code = [...] code = 2219) 16 U/L Delfino Schumacher [facility] with [id number] 19:43:14* Test Item Value Reference Range Interpretation [...] 33.6 g/dL 31.6-35.1 RDW-SD (test code = 01727-5) 54.3 fL 39.0-49.9 H RDW-CV (test code = 788-0) 13.4 % 12.0-15.5 PLT (test code = 777-3) 133 166-358 L MPV (test code = 25962-8) 11.5 fL 9.5-12.9 IPF % (test code = 1932127946) 5.6 % 1.3-7.7 Platelet count measured by fluorescence method. NRBC/100 WBC (test code = 2158444396) 0.0 0.0-10.0 NRBC x10^3 (test code = 9743210912) See_Comment [Automated messa ge] The system which generated this result transmitted reference range: 10*3/?L. The reference range was not used to interpret this result as normal/abnormal. GRAN MAT (NEUT) % (test code = 770-8) 91.9 % IMM GRAN % (test code = 0620571163) 0.30 % LYMPH % (test code = 736-9) 5.6 % MONO % (test code = 5905-5) 2.1 % EOS % (test code = 713-8) 0.0 % BASO % (test code = 706-2) 0.1 % GRAN MAT x10^3(ANC) (test code = 5947763308) 7.05 10*3/uL 1.88-7.09 IMM GRAN x10^3 (test code = 1285864972) 0.00-0.06 LYMPH x10^3 (test code = 731-0) 0.43 10*3/uL 1.32-3.29 L MONO x10^3 (test code = 742-7) 0.16 10*3/uL 0.33-0.92 L EOS x10^3 (test code = 711-2) 0.03-0.39 L BASO x10^3 (test code = 704-7) 0.01-0.07 Lab Interpretation (test code = 33823-7) [facility] (70[facility]2023-[facility]-17 19:32:09* Test Item Value Reference Range Interpretation Comme nts NA (test code = 2292159657) 139 mmol/L 135-145 K (test code = 5079958626) 3.9 mmol/L 3.5-5.0 CL (test code = 9080759787) 115 mmol/L 98-108 H CO2 TOTAL (test code = 3109129933) 16 mmol/L 23-31 L AGAP (test code = 6481473510) 8 2-16 BUN (test code = 6006114296) 30 mg/dL 7-23 H GLUCOSE (test code = 1804990369) 173 mg/dL 70-110 H CREATININE (test code = 2160-0) 1.69 mg/dL 0.50-1.04 H TOTAL BILI (test code = 1520770881) 0.4 mg/dL 0.1-1.1 CALCIUM (test code = 4810805470) 10.1 mg/dL 8.6-10.6 T PROTEIN (test code = 3234457642) 8.5 g/dL 6.3-8.2 H ALBUMIN (test code = 7230351923) 3.9 g/dL 3.5-5.0 ALK PHOS (test code = 5330898471) 76 U/L 34-122 ALTv (test code = 1742-6) 35 U/L 5-35 AST(SGOT) (test code = 6920476146) 54 U/L 13-40 H eGFR (test code = 81548-6) 34.4 mL/min/1.73m2 CKD-EPI eGFR (2020). Assuming creatinine has been stable day-to-day for at least three months, the eGFR indicates Category G3b (30 - 44 mL/min/1.73 m2) Lab Interpretation (test code = 90951-9) [facility] 15:37:06* Test Item Value Reference Range Interpretation Comme nts Height (test code = 3174968910) 63 in Weight (test code = 5526938860) 140 lbs Systolic BP (test code = 0403081763) 118 mmHg Diastolic BP (test code = 1811811708) 58 mmHg Heart Rate (test code = 4236165857) 78 bpm BSA (test code = 7669057665) 1.66 m2 Ao root diam (test code = 6896815211) 2.90 cm Aortic root (test code = 3350541218) 2.9 cm Ao root annulus (test code = 8788676089) 2.9 cm LVOT diameter (test code = 5293406654) 1.96 cm LVOT area (test code = 3460373389) 3.00 cm2 LA size (test code = 3171562696) 3.2 cm LVIDD (test code = 0936817993) 2.90 cm Left Ventricular End Diastolic Volume by Teichholz Method (test code = 6001221) 32.6 mL IVS (test code = 4079811920) 1.26 cm Interventricular Septum Diastolic Thickness by 2D (test code = 3964466) 1.26 cm LVPWD (test code = 4831398794) 1.23 cm PW (test code = 3771028518) 1.23 cm 0.6-1.1 EF(Teich) (test code = 6079666986) 55.00 % LVIDS (test code = 0557584868) 2.11 cm Left Ventricular End Systolic Volume by Teichholz Method (test code = 2542400) 14.7 mL FS (test code = 5351377305) 27 % EF - 2D (test code = 78893733) 55.00 % LAV(MOD-sp4) (test code = 9690038882) 20.20 mL E wave decelartion time (test code = 0882179145) 0.18 s MV Peak E Barber (test code = 6036075099) 72.8 cm/s MV stenosis pressure 1/2 time (test code = 6142573460) 51.2 ms MV Peak A Barber (test code = 3044843722) 73.4 cm/s E/A ratio (test code = 1163872087) 0.99 ratio MV Prop V (test code = 1282100145) 180.80 cm/s MV E/e' septal (test code = 7638488268) 10.8 cm/s Tapse (test code = 5469287199) 2.08 cm LVOT stroke volume (test code = 1695316136) 73.30 cm3 LVOT peak barber (test code = 9782327304) 125.3 cm/s LVOT mn grad (test code = 9520694074) 3.6 mmHg AV LVOT peak gradient (test code = 8428816410) 6.3 mmHg LVOT peak VTI (test code = 5213844263) 24.3 cm LV V1 mean (test code = 9947114117) 89.60 cm/s Aortic valve mean velocity (test code = 6684826145) 236.9 cm/s Ao peak barber (test code = 7320264804) 333.6 cm/s Ao VTI (test code = 0927601152) 58.2 cm AV area by cont VTI (test code = 2901659010) 1.3 cm2 AV area peak barber (test code = 2877105853) 1.1 cm2 Ao max PG (test code = 1569204227) 44.60 mm[Hg] AV peak gradient (test code = 6616948523) 44.6 mmHg AV valve area (test code = 9248415512) 1.26 cm2 AV mean gradient (test code = 8194422257) 24.9 mmHg Radiology Study observation (narrative) (test code = 03804-5) GARRY (test code = GARRY) Table formatting [...] 2D, color flow Doppler and spectral Doppler. [facility] WITH [id number] 19:09:02* Test Item Value Reference Range Interpretation [...] 33.5 g/dL 31.6-35.1 RDW-SD (test code = 02759-9) 55.2 fL 39.0-49.9 H RDW-CV (test code = 788-0) 13.4 % 12.0-15.5 PLT (test code = 777-3) 142 166-358 L MPV (test code = 74003-3) 11.4 fL 9.5-12.9 NRBC/100 WBC (test code = 3399486644) 0.0 0.0-10.0 NRBC x10^3 (test code = 1236288274) See_Comment [Automated messa ge] The system which generated this result transmitted reference range: 10*3/?L. The reference range was not used to interpret this result as normal/abnormal. GRAN MAT (NEUT) % (test code = 770-8) 62.9 % IMM GRAN % (test code = 1308037656) 0.40 % LYMPH % (test code = 736-9) 27.3 % MONO % (test code = 5905-5) 9.0 % EOS % (test code = 713-8) 0.2 % BASO % (test code = 706-2) 0.2 % GRAN MAT x10^3(ANC) (test code = 2461558706) 3.30 10*3/uL 1.88-7.09 IMM GRAN x10^3 (test code = 3957323660) 0.00-0.06 LYMPH x10^3 (test code = 731-0) 1.43 10*3/uL 1.32-3.29 MONO x10^3 (test code = 742-7) 0.47 10*3/uL 0.33-0.92 EOS x10^3 (test code = 711-2) 0.03-0.39 L BASO x10^3 (test code = 704-7) 0.01-0.07 Lab Interpretation (test code = 50174-5) [facility]normal [facility] [id number] 18:52:52* Test Item Value Reference Range Interpretation Comme nts TROPONIN I (test code = 6306922641) 0.160 ng/mL <=0.034 H GARRY (test code [...] of biotin. Lab Interpretation (test code = 35059-5) Abnormal [facility]OL[facility] PANEL (75873)2023-05-16 18:41:47* Test Item Value Reference Range Interpretation Comme nts NA (test code = 9352686515) 143 mmol/L 135-145 K (test code = 9353280827) 3.9 mmol/L 3.5-5.0 CL (test code = 7336833576) 116 mmol/L 98-108 H CO2 TOTAL (test code = 8364718509) 15 mmol/L 23-31 L AGAP (test code = 6133360990) 12 2-16 BUN (test code = 9677691301) 29 mg/dL 7-23 H GLUCOSE (test code = 5516558376) 104 mg/dL 70-110 CREATININE (test code = 2160-0) 1.90 mg/dL 0.50-1.04 H TOTAL BILI (test code = 7985143405) 0.5 mg/dL 0.1-1.1 CALCIUM (test code = 9398373487) 10.2 mg/dL 8.6-10.6 T PROTEIN (test code = 6878413317) 9.8 g/dL 6.3-8.2 H ALBUMIN (test code = 1412341491) 4.6 g/dL 3.5-5.0 ALK PHOS (test code = 4222801609) 103 U/L 34-122 ALTv (test code = 1742-6) 44 U/L 5-35 H AST(SGOT) (test code = 5434551596) 54 U/L 13-40 H eGFR (test code = 85189-1) 29.9 mL/min/1.73m2 Lab Interpretation (test cod e = 91659-7) Abnormal [facility]landLIPASE, [id number] 18:41:26* Test Item Value Reference Range Interpretation Comme nts LIPASE (test code = 6857610860) 123 U/L 0-220 Lab Interpretation (test cod e = 51887-1) Normal [facility] Venous Blood [id number] 18:29:21 * Test Item Value Reference Range Interpretation Comme nts PH (test code = 5767302695) 7.25 7.32-7.42 L PCO2 BEBA (test code = 7368704918) 40 41-51 L PO2 BEBA (test code = 4772864932) 27 25-40 HCO3 BEBA (test code = 8684542583) 17 24-28 L AC VBE(BEAKER) (test code = 8246037292) -9.3 mEq/L Lab Interpretation (test cod e = 26769-1) Abnormal [facility]XR CHEST 1 [id number] 18:03:51HISTORY: Cough and SOB. TECHNIQUE: Portable AP [...] Acute findings could be secondary to viral infection.[facility]landAUBREY, [id number] 08:50:21SPECIMEN NUMBER: [id number] CULTURE, URINE SPECIMEN NUMBER: [id number] SPECIMEN COMMENT: URINE SOURCE: URINE REPORT STATUS: FINAL FINAL REPORT: 05/11/2023 10-50,000 CFU/ML UROGENITAL KARLA PRESENT NO COMMON PATHOGENSCULTNIALL, [id number] 00:00:00* Test Item Value Reference Range Interpretation Comme nts CULTURE, URINE (test code = 11567) SPECIMEN NUMBER: [id number] Delfino Cedeño, [id number] 00:00:00* Test Item Value Reference Range Interpretation Comme nts CULTURE, URINE (test code = 22164) SPECIMEN NUMBER: [id number] Delfino Cedeño [id number] 00:00:00* Test Item Value Reference Range Interpretation Comme nts CULTURE, URINE (test code = 97853) SPECIMEN NUMBER: [id number] Delfino Cedeño, [id number] 00:00:00* Test Item Value Reference Range Interpretation Comme nts CULTURE, URINE (test code = 95730) SPECIMEN NUMBER: [id number] Delfino Cedeño, [id number] 00:00:00* Test Item Value Reference Range Interpretation Comme nts CULTURE, URINE (test code = 37068) SPECIMEN NUMBER: [id number] Delfino Cedeño, [id number] 00:00:00* Test Item Value Reference Range Interpretation Comme nts CULTURE, URINE (test code = 01328) SPECIMEN NUMBER: [id number] Delfino Cedeño, [id number] 00:00:00* Test Item Value Reference Range Interpretation Comme nts CULTURE, URINE (test code = 33174) SPECIMEN NUMBER: [id number] Delfino Cedeño, [id number] 00:00:00* Test Item Value Reference Range Interpretation Comme nts CULTURE, URINE (test code = 47321) SPECIMEN NUMBER: [id number] Delfino Cedeño, [id number] 00:00:00* Test Item Value Reference Range Interpretation Comme nts CULTURE, URINE (test code = 92378) SPECIMEN NUMBER: [id number] Delfino Cedeño, [id number] 00:00:00* Test Item Value Reference Range Interpretation Comme nts CULTURE, URINE (test code = 25637) SPECIMEN NUMBER: [id number] Delfino Cedeño [id number] 00:00:00* Test Item Value Reference Range Interpretation Comme nts CULTURE, URINE (test code = 76178) SPECIMEN NUMBER: [id number] Delfino Cedeño [id number] 00:00:00* Test Item Value Reference Range Interpretation Comme nts CULTURE, URINE (test code = 56092) SPECIMEN NUMBER: [id number] Delfino Cedeño [id number] 00:00:00* Test Item Value Reference Range Interpretation Comme nts CULTURE, URINE (test code = 91762) SPECIMEN NUMBER: [id number] Delfino Cedeño [id number] 00:00:00* Test Item Value Reference Range Interpretation Comme nts CULTURE, URINE (test code = 90676) SPECIMEN NUMBER: [id number] Delfino Cedeño, [id number] 00:00:00* Test Item Value Reference Range Interpretation Comme nts CULTURE, URINE (test code = 88025) SPECIMEN NUMBER: [id number] Delfino Cedeño [id number] 00:00:00* Test Item Value Reference Range Interpretation Comme nts CULTURE, URINE (test code = 65996) SPECIMEN NUMBER: [id number] Delfino Cedeño [id number] 00:00:00* Test Item Value Reference Range Interpretation Comme nts CULTURE, URINE (test code = 19169) SPECIMEN NUMBER: [id number] Delfino Cedeño [id number] 00:00:00* Test Item Value Reference Range Interpretation Comme nts CULTURE, URINE (test code = 51923) SPECIMEN NUMBER: [id number] Delfino Cedeño, [id number] 00:00:00* Test Item Value Reference Range Interpretation Comme nts CULTURE, URINE (test code = 78682) SPECIMEN NUMBER: [id number] Delfino Schumacher AustinVAGINAL PATHOGENS DNA [id number] 14:05:30* Test Item Value Reference Range Interpretation Comme nts DIANNA SPECIES (test code = ) NEGATIVE NEGATIVE G. VAGINALIS (test code = 98082) NEGATIVE NEGATIVE T. VAGINALIS (test code = 80677) NEGATIVE NEGATIVE Note: [facility] VPIII Microbial Identification Testis a DNA probe test intended for use in the detectionand identification of Dianna species, Gardnerellavaginalis and Trichomonas vaginalis nucleic acid. CT/NG, NAAT, [id number] 12:17:23* Test Item Value Reference Range Interpretation Comme nts CHLAMYDIA, NAAT, URINE (test code = 97099) NEGATIVE NEGATIVE Testing is perfo rmed with Epifanio JOSE 6800/8800 systems usingreal-time polymerase chain reaction (PCR) method. A negative result does not exclude low level infection, specimensampling error, or collection error. GONORRHEA, NAAT, URINE (test code = 62401) NEGATIVE NEGATIVE Testing is perfo rmed with Epifanio JOSE 6800/8800 systems usingreal-time polymerase chain reaction (PCR) method. A negative result does not exclude low level infection, specimensampling error, or collection error. UNLESS OTHERWISE INDICATED, ALL TESTING PERFORMED AT [facility] [address] [place] [address] SPANISH INTERPRETER/TRANSLATOR: ABBI SHORT M.D. [place] NUMBER [id number] [facility] [place]. [id number] VAGINAL PATHOGENS DNA [id number] 00:00:00* Test Item Value Reference Range Interpretation Comme nts DIANNA SPECIES (test code = ) NEGATIVE G. VAGINALIS (test code = 38965) NEGATIVE T. VAGINALIS (test code = 82317) NEGATIVE Delfino F AustinCT/NG, TMA, [id number] 00:00:00* Test Item Value Reference Range Interpretation Comme nts CHLAMYDIA, NAAT, URINE (test code = 25410) NEGATIVE GONORRHEA, NAAT, URINE (test code = 79760) NEGATIVE Delfino F AustinCT/NG, TMA, [id number] 00:00:00* Test Item Value Reference Range Interpretation Comme nts CHLAMYDIA, NAAT, URINE (test code = 16291) NEGATIVE GONORRHEA, NAAT, URINE (test code = 78701) NEGATIVE Delfino F AustinVAGINAL PATHOGENS DNA [id number] 00:00:00* Test Item Value Reference Range Interpretation Comme nts DIANNA SPECIES (test code = ) NEGATIVE G. VAGINALIS (test code = 32871) NEGATIVE T. VAGINALIS (test code = 58891) NEGATIVE Delfino F AustinCT/NG, TMA, [id number] 00:00:00* Test Item Value Reference Range Interpretation Comme nts CHLAMYDIA, NAAT, URINE (test code = 43534) NEGATIVE GONORRHEA, NAAT, URINE (test code = 58355) NEGATIVE Delfino F AustinVAGINAL PATHOGENS DNA [id number] 00:00:00* Test Item Value Reference Range Interpretation Comme nts DIANNA SPECIES (test code = ) NEGATIVE G. VAGINALIS (test code = 60931) NEGATIVE T. VAGINALIS (test code = 17210) NEGATIVE Delfino F AustinCT/NG, TMA, [id number] 00:00:00* Test Item Value Reference Range Interpretation Comme nts CHLAMYDIA, NAAT, URINE (test code = 61994) NEGATIVE GONORRHEA, NAAT, URINE (test code = 40826) NEGATIVE Delfino F AustinVAGINAL PATHOGENS DNA [id number] 00:00:00* Test Item Value Reference Range Interpretation Comme nts DIANNA SPECIES (test code = ) NEGATIVE G. VAGINALIS (test code = 77717) NEGATIVE T. VAGINALIS (test code = 68104) NEGATIVE Delfino F AustinCT/NG, TMA, [id number] 00:00:00* Test Item Value Reference Range Interpretation Comme nts CHLAMYDIA, NAAT, URINE (test code = 06496) NEGATIVE GONORRHEA, NAAT, URINE (test code = 18690) NEGATIVE Delfino F AustinVAGINAL PATHOGENS DNA [id number] 00:00:00* Test Item Value Reference Range Interpretation Comme nts DIANNA SPECIES (test code = ) NEGATIVE G. VAGINALIS (test code = 22099) NEGATIVE T. VAGINALIS (test code = 44831) NEGATIVE Delfino F AustinCT/NG, TMA, [id number] 00:00:00* Test Item Value Reference Range Interpretation Comme nts CHLAMYDIA, NAAT, URINE (test code = 51141) NEGATIVE GONORRHEA, NAAT, URINE (test code = 49392) NEGATIVE Delfino F AustinVAGINAL PATHOGENS DNA [id number] 00:00:00* Test Item Value Reference Range Interpretation Comme nts DIANNA SPECIES (test code = ) NEGATIVE G. VAGINALIS (test code = 27261) NEGATIVE T. VAGINALIS (test code = 11266) NEGATIVE Delfino Endy AustinCT/NG, TMA, [id number] 00:00:00* Test Item Value Reference Range Interpretation Comme nts CHLAMYDIA, NAAT, URINE (test code = 85277) NEGATIVE GONORRHEA, NAAT, URINE (test code = 68943) NEGATIVE Delfino F AustinVAGINAL PATHOGENS DNA [id number] 00:00:00* Test Item Value Reference Range Interpretation Comme nts DIANNA SPECIES (test code = ) NEGATIVE G. VAGINALIS (test code = 59271) NEGATIVE T. VAGINALIS (test code = 01261) NEGATIVE Delfino F AustinCT/NG, TMA, [id number] 00:00:00* Test Item Value Reference Range Interpretation Comme nts CHLAMYDIA, NAAT, URINE (test code = 86550) NEGATIVE GONORRHEA, NAAT, URINE (test code = 18184) NEGATIVE Delfino F AustinVAGINAL PATHOGENS DNA [id number] 00:00:00* Test Item Value Reference Range Interpretation Comme nts DIANNA SPECIES (test code = ) NEGATIVE G. VAGINALIS (test code = 46388) NEGATIVE T. VAGINALIS (test code = ) NEGATIVE Delfino Schumacher AustinCT/NG, TMA, [id number] 00:00:00* Test Item Value Reference Range Interpretation Comme nts CHLAMYDIA, NAAT, URINE (test code = 93922) NEGATIVE GONORRHEA, NAAT, URINE (test code = 33889) NEGATIVE Delfino F AustinVAGINAL PATHOGENS DNA [id number] 00:00:00* Test Item Value Reference Range Interpretation Comme nts IDANNA SPECIES (test code = ) NEGATIVE G. VAGINALIS (test code = 66483) NEGATIVE T. VAGINALIS (test code = 57849) NEGATIVE Delfino F AustinCT/NG, TMA, [id number] 00:00:00* Test Item Value Reference Range Interpretation Comme nts CHLAMYDIA, NAAT, URINE (test code = 11913) NEGATIVE GONORRHEA, NAAT, URINE (test code = 34118) NEGATIVE Delfino Endy AustinVAGINAL PATHOGENS DNA [id number] 00:00:00* Test Item Value Reference Range Interpretation Comme nts DIANNA SPECIES (test code = ) NEGATIVE G. VAGINALIS (test code = 93390) NEGATIVE T. VAGINALIS (test code = 84820) NEGATIVE Delfino Schumacher AustinCT/NG, TMA, [id number] 00:00:00* Test Item Value Reference Range Interpretation Comme nts CHLAMYDIA, NAAT, URINE (test code = 40900) NEGATIVE GONORRHEA, NAAT, URINE (test code = 31604) NEGATIVE Delfino Endy AustinVAGINAL PATHOGENS DNA [id number] 00:00:00* Test Item Value Reference Range Interpretation Comme nts DIANNA SPECIES (test code = ) NEGATIVE G. VAGINALIS (test code = 35209) NEGATIVE T. VAGINALIS (test code = 59776) NEGATIVE Delfino Schumacher AustinCT/NG, TMA, [id number] 00:00:00* Test Item Value Reference Range Interpretation Comme nts CHLAMYDIA, NAAT, URINE (test code = 18341) NEGATIVE GONORRHEA, NAAT, URINE (test code = 17649) NEGATIVE Delfino Schumacher AustinVAGINAL PATHOGENS DNA [id number] 00:00:00* Test Item Value Reference Range Interpretation Comme nts DIANNA SPECIES (test code = ) NEGATIVE G. VAGINALIS (test code = 05359) NEGATIVE T. VAGINALIS (test code = 77372) NEGATIVE Delfino Schumacher AustinCT/NG, TMA, [id number] 00:00:00* Test Item Value Reference Range Interpretation Comme nts CHLAMYDIA, NAAT, URINE (test code = 70714) NEGATIVE GONORRHEA, NAAT, URINE (test code = 97235) NEGATIVE Delfino Schumacher AustinVAGINAL PATHOGENS DNA [id number] 00:00:00* Test Item Value Reference Range Interpretation Comme nts DIANNA SPECIES (test code = 67121) NEGATIVE G. VAGINALIS (test code = 91740) NEGATIVE T. VAGINALIS (test code = 58063) NEGATIVE Delfino F AustinCT/NG, TMA, [id number] 00:00:00* Test Item Value Reference Range Interpretation Comme nts CHLAMYDIA, NAAT, URINE (test code = 69859) NEGATIVE GONORRHEA, NAAT, URINE (test code = 30829) NEGATIVE Delfino F AustinVAGINAL PATHOGENS DNA [id number] 00:00:00* Test Item Value Reference Range Interpretation Comme nts DIANNA SPECIES (test code = 57623) NEGATIVE G. VAGINALIS (test code = 33977) NEGATIVE T. VAGINALIS (test code = 97276) NEGATIVE Delfino F AustinCT/NG, TMA, [id number] 00:00:00* Test Item Value Reference Range Interpretation Comme nts CHLAMYDIA, NAAT, URINE (test code = 68733) NEGATIVE GONORRHEA, NAAT, URINE (test code = 92453) NEGATIVE Delfino F AustinVAGINAL PATHOGENS DNA [id number] 00:00:00* Test Item Value Reference Range Interpretation Comme nts DIANNA SPECIES (test code = ) NEGATIVE G. VAGINALIS (test code = 20838) NEGATIVE T. VAGINALIS (test code = 41315) NEGATIVE Delfino F AustinCT/NG, TMA, [id number] 00:00:00* Test Item Value Reference Range Interpretation Comme nts CHLAMYDIA, NAAT, URINE (test code = 20785) NEGATIVE GONORRHEA, NAAT, URINE (test code = 53454) NEGATIVE Delfino F AustinVAGINAL PATHOGENS DNA [id number] 00:00:00* Test Item Value Reference Range Interpretation Comme nts DIANNA SPECIES (test code = ) NEGATIVE G. VAGINALIS (test code = 46361) NEGATIVE T. VAGINALIS (test code = 80646) NEGATIVE Delfino F AustinCT/NG, TMA, [id number] 00:00:00* Test Item Value Reference Range Interpretation Comme nts CHLAMYDIA, NAAT, URINE (test code = 28054) NEGATIVE GONORRHEA, NAAT, URINE (test code = 48948) NEGATIVE Delfino F AustinVAGINAL PATHOGENS DNA [id number] 00:00:00* Test Item Value Reference Range Interpretation Comme nts DIANNA SPECIES (test code = 95415) NEGATIVE G. VAGINALIS (test code = 06025) NEGATIVE T. VAGINALIS (test code = 76810) NEGATIVE Delfino F AustinCT/NG, TMA, [id number] 00:00:00* Test Item Value Reference Range Interpretation Comme nts CHLAMYDIA, NAAT, URINE (test code = 71618) NEGATIVE GONORRHEA, NAAT, URINE (test code = 24017) NEGATIVE Delfino Schumacher AustinVAGINAL PATHOGENS DNA [id number] 00:00:00* Test Item Value Reference Range Interpretation Comme nts DIANNA SPECIES (test code = 63373) NEGATIVE G. VAGINALIS (test code = 39238) NEGATIVE T. VAGINALIS (test code = 77492) NEGATIVE Delfino Schumacher AustinVAGINAL PATHOGENS DNA [id number] 00:00:00* Test Item Value Reference Range Interpretation Comme nts DIANNA SPECIES (test code = ) NEGATIVE G. VAGINALIS (test code = 91694) NEGATIVE T. VAGINALIS (test code = 65519) NEGATIVE Delfino Schumacher AustinCT/NG, TMA, [id number] 00:00:00* Test Item Value Reference Range Interpretation Comme nts CHLAMYDIA, NAAT, URINE (test code = 07963) NEGATIVE GONORRHEA, NAAT, URINE (test code = 70136) NEGATIVE Delfino Schumacher [id number] 20:25:19* Test Item Value Reference Range Interpretation Comme nts CALCIUM (test code = 2209) 10.6 MG/DL 8.5-10.5 H [id number] 20:25:10* Test Item Value Reference Range Interpretation Comme nts PHOSPHORUS (test code = 2227) 2.9 MG/DL 2.5-4.5 UNLESS OTHERWISE INDICATED, ALL TESTING PERFORMED AT [facility] [address] [place] [address] SPANISH INTERPRETER/TRANSLATOR: ABBI SHORT M.D. CLIA NUMBER [id number] [facility] [place]. [id number] CALCIUM, [id number] 09:33:19* Test Item Value Reference Range Interpretation Comme nts CALCIUM, IONIZED (test code = 47870) 5.50 MG/DL 4.70-5.90 INTACT [id number] 09:28:17* Test Item Value Reference Range Interpretation Comme nts INTACT PTH (test code = 5005) 60 PG/ML 15-65 INTACT [id number] 00:00:00* Test Item Value Reference Range Interpretation Comme nts INTACT PTH (test code = 5005) 60 PG/ML Delfino Schumacher AustinCALCIUM, [id number] 00:00:00* Test Item Value Reference Range Interpretation Comme nts CALCIUM, IONIZED (test code = 48662) 5.50 MG/DL Delfino Schumacher [id number] 00:00:00* Test Item Value Reference Range Interpretation Comme nts CALCIUM (test code = 2209) 10.6 MG/DL Delfino Schumacher [id number] 00:00:00* Test Item Value Reference Range Interpretation Comme nts CALCIUM (test code = 2209) 10.6 MG/DL Delfino Schumacher [id number] 00:00:00* Test Item Value Reference Range Interpretation Comme nts PHOSPHORUS (test code = 2227) 2.9 MG/DL Delfino Schumacher AustinINTACT [id number] 00:00:00* Test Item Value Reference Range Interpretation Comme nts INTACT PTH (test code = 5005) 60 PG/ML Delfino Schumacher AustinCALCIUM, [id number] 00:00:00* Test Item Value Reference Range Interpretation Comme nts CALCIUM, IONIZED (test code = 93642) 5.50 MG/DL Delfino Schumacher [id number] 00:00:00* Test Item Value Reference Range Interpretation Comme nts CALCIUM (test code = 2209) 10.6 MG/DL Delfino Schumacher [id number] 00:00:00* Test Item Value Reference Range Interpretation Comme nts PHOSPHORUS (test code = 2227) 2.9 MG/DL Delfino Schumacher [id number] 00:00:00* Test Item Value Reference Range Interpretation Comme nts PHOSPHORUS (test code = 2227) 2.9 MG/DL Delfino Schumacher AustinINTACT [id number] 00:00:00* Test Item Value Reference Range Interpretation Comme nts INTACT PTH (test code = 5005) 60 PG/ML Delfino Schumacher AustinCALCIUM, [id number] 00:00:00* Test Item Value Reference Range Interpretation Comme nts CALCIUM, IONIZED (test code = 71494) 5.50 MG/DL Delfino Schumacher [id number] 00:00:00* Test Item Value Reference Range Interpretation Comme nts CALCIUM (test code = 2209) 10.6 MG/DL Delfino Schumacher [id number] 00:00:00* Test Item Value Reference Range Interpretation Comme nts PHOSPHORUS (test code = 2227) 2.9 MG/DL Delfino Schumacher AustinINTACT [id number] 00:00:00* Test Item Value Reference Range Interpretation Comme nts INTACT PTH (test code = 5005) 60 PG/ML Delfino Schumacher AustinCALCIUM, [id number] 00:00:00* Test Item Value Reference Range Interpretation Comme nts CALCIUM, IONIZED (test code = 24365) 5.50 MG/DL Delfino Schumacher [id number] 00:00:00* Test Item Value Reference Range Interpretation Comme nts CALCIUM (test code = 2209) 10.6 MG/DL Delfino Schumacher [id number] 00:00:00* Test Item Value Reference Range Interpretation Comme nts PHOSPHORUS (test code = 2227) 2.9 MG/DL Delfino Schumacher AustinINTACT [id number] 00:00:00* Test Item Value Reference Range Interpretation Comme nts INTACT PTH (test code = 5005) 60 PG/ML Delfino OrtaCALCIUM, [id number] 00:00:00* Test Item Value Reference Range Interpretation Comme nts CALCIUM, IONIZED (test code = 19336) 5.50 MG/DL Delfino Schumacher [id number] 00:00:00* Test Item Value Reference Range Interpretation Comme nts CALCIUM (test code = 2209) 10.6 MG/DL Delfino Schumacher [id number] 00:00:00* Test Item Value Reference Range Interpretation Comme nts PHOSPHORUS (test code = 2227) 2.9 MG/DL Delfino Schumacher AustinINTACT [id number] 00:00:00* Test Item Value Reference Range Interpretation Comme nts INTACT PTH (test code = 5005) 60 PG/ML Delfino Schumacher AustinCALCIUM, [id number] 00:00:00* Test Item Value Reference Range Interpretation Comme nts CALCIUM, IONIZED (test code = 55058) 5.50 MG/DL Delfino Schumacher [id number] 00:00:00* Test Item Value Reference Range Interpretation Comme nts CALCIUM (test code = 2209) 10.6 MG/DL Delfino Schumacher [id number] 00:00:00* Test Item Value Reference Range Interpretation Comme nts PHOSPHORUS (test code = 2227) 2.9 MG/DL Delfino Schumacher AustinINTACT [id number] 00:00:00* Test Item Value Reference Range Interpretation Comme nts INTACT PTH (test code = 5005) 60 PG/ML Delfino Schumacher AustinCALCIUM, [id number] 00:00:00* Test Item Value Reference Range Interpretation Comme nts CALCIUM, IONIZED (test code = 35948) 5.50 MG/DL Delfino Schumacher [id number] 00:00:00* Test Item Value Reference Range Interpretation Comme nts CALCIUM (test code = 2209) 10.6 MG/DL Delfino Schumacher [id number] 00:00:00* Test Item Value Reference Range Interpretation Comme nts PHOSPHORUS (test code = 2227) 2.9 MG/DL Delfino Schumacher AustinINTACT [id number] 00:00:00* Test Item Value Reference Range Interpretation Comme nts INTACT PTH (test code = 5005) 60 PG/ML Delfino Schumacher AustinCALCIUM, [id number] 00:00:00* Test Item Value Reference Range Interpretation Comme nts CALCIUM, IONIZED (test code = 43762) 5.50 MG/DL Delfino Schumacher [id number] 00:00:00* Test Item Value Reference Range Interpretation Comme nts CALCIUM (test code = 2209) 10.6 MG/DL Delfino Schumacher [id number] 00:00:00* Test Item Value Reference Range Interpretation Comme nts PHOSPHORUS (test code = 2227) 2.9 MG/DL Delfino Schumacher AustinINTACT [id number] 00:00:00* Test Item Value Reference Range Interpretation Comme nts INTACT PTH (test code = 5005) 60 PG/ML Delfino Schumacher AustinCALCIUM, [id number] 00:00:00* Test Item Value Reference Range Interpretation Comme nts CALCIUM, IONIZED (test code = 03892) 5.50 MG/DL Delfino Schumacher [id number] 00:00:00* Test Item Value Reference Range Interpretation Comme nts CALCIUM (test code = 2209) 10.6 MG/DL Delfino Schumacher [id number] 00:00:00* Test Item Value Reference Range Interpretation Comme nts PHOSPHORUS (test code = 2227) 2.9 MG/DL Delfino Schumacher [place] [id number] 00:00:00* Test Item Value Reference Range Interpretation Comme nts INTACT PTH (test code = 5005) 60 PG/ML Delfino Schumacher [place], [id number] 00:00:00* Test Item Value Reference Range Interpretation Comme nts CALCIUM, IONIZED (test code = 95027) 5.50 MG/DL Delfino Schumacher [id number] 00:00:00* Test Item Value Reference Range Interpretation Comme nts CALCIUM (test code = 2209) 10.6 MG/DL Delfino Schumacher [id number] 00:00:00* Test Item Value Reference Range Interpretation Comme nts PHOSPHORUS (test code = 2227) 2.9 MG/DL Delfino Schumacher [place] [id number] 00:00:00* Test Item Value Reference Range Interpretation Comme nts INTACT PTH (test code = 5005) 60 PG/ML Delfino Schumacher [place], [id number] 00:00:00* Test Item Value Reference Range Interpretation Comme nts CALCIUM, IONIZED (test code = 12481) 5.50 MG/DL Delfino Schumacher [id number] 00:00:00* Test Item Value Reference Range Interpretation Comme nts CALCIUM (test code = 2209) 10.6 MG/DL Delfino Schumacher [id number] 00:00:00* Test Item Value Reference Range Interpretation Comme nts PHOSPHORUS (test code = 2227) 2.9 MG/DL Delfino Schumacher [place] [id number] 00:00:00* Test Item Value Reference Range Interpretation Comme nts INTACT PTH (test code = 5005) 60 PG/ML Delfino Schumacher [place], [id number] 00:00:00* Test Item Value Reference Range Interpretation Comme nts CALCIUM, IONIZED (test code = 08826) 5.50 MG/DL Delfino Schumacher [id number] 00:00:00* Test Item Value Reference Range Interpretation Comme nts CALCIUM (test code = 2209) 10.6 MG/DL Delfino Schumacher [id number] 00:00:00* Test Item Value Reference Range Interpretation Comme nts PHOSPHORUS (test code = 2227) 2.9 MG/DL Delfino Schumacher [place] [id number] 00:00:00* Test Item Value Reference Range Interpretation Comme nts INTACT PTH (test code = 5005) 60 PG/ML Delfino Schumacher AustinCALCIUM, [id number] 00:00:00* Test Item Value Reference Range Interpretation Comme nts CALCIUM, IONIZED (test code = 25888) 5.50 MG/DL Delfino Schumacher [id number] 00:00:00* Test Item Value Reference Range Interpretation Comme nts CALCIUM (test code = 2209) 10.6 MG/DL Delfino Schumacher [id number] 00:00:00* Test Item Value Reference Range Interpretation Comme nts PHOSPHORUS (test code = 2227) 2.9 MG/DL Delfino Schumacher [place] [id number] 00:00:00* Test Item Value Reference Range Interpretation Comme nts INTACT PTH (test code = 5005) 60 PG/ML Delfino Schumacher AustinCALCIUM, [id number] 00:00:00* Test Item Value Reference Range Interpretation Comme nts CALCIUM, IONIZED (test code = 24018) 5.50 MG/DL Delfino Schumacher [id number] 00:00:00* Test Item Value Reference Range Interpretation Comme nts CALCIUM (test code = 2209) 10.6 MG/DL Delfino Schumacher [id number] 00:00:00* Test Item Value Reference Range Interpretation Comme nts PHOSPHORUS (test code = 2227) 2.9 MG/DL Delfino Schumacher [place] [id number] 00:00:00* Test Item Value Reference Range Interpretation Comme nts INTACT PTH (test code = 5005) 60 PG/ML Delfino Schumacher [place]IN[place] [id number] 00:00:00* Test Item Value Reference Range Interpretation Comme nts INTACT PTH (test code = 5005) 60 PG/ML Delfino Schumacher AustinCALCIUM, [id number] 00:00:00* Test Item Value Reference Range Interpretation Comme nts CALCIUM, IONIZED (test code = 06111) 5.50 MG/DL Delfino Schumacher [id number] 00:00:00* Test Item Value Reference Range Interpretation Comme nts CALCIUM (test code = 2209) 10.6 MG/DL Delfino Schumacher [id number] 00:00:00* Test Item Value Reference Range Interpretation Comme nts PHOSPHORUS (test code = 2227) 2.9 MG/DL Delfino Schumacher [place] [id number] 00:00:00* Test Item Value Reference Range Interpretation Comme nts INTACT PTH (test code = 5005) 60 PG/ML Delfino Schumacher AustinCALCIUM, [id number] 00:00:00* Test Item Value Reference Range Interpretation Comme nts CALCIUM, IONIZED (test code = 39952) 5.50 MG/DL Delfino Schumacher [id number] 00:00:00* Test Item Value Reference Range Interpretation Comme nts CALCIUM (test code = 2209) 10.6 MG/DL Delfino Schumacher [id number] 00:00:00* Test Item Value Reference Range Interpretation Comme nts PHOSPHORUS (test code = 2227) 2.9 MG/DL Delfino Schumacher [place] [id number] 00:00:00* Test Item Value Reference Range Interpretation Comme nts INTACT PTH (test code = 5005) 60 PG/ML Delfino OrtaCALCIUM, [id number] 00:00:00* Test Item Value Reference Range Interpretation Comme nts CALCIUM, IONIZED (test code = 76393) 5.50 MG/DL Delfino Schumacher AustinCALCIUM, [id number] 00:00:00* Test Item Value Reference Range Interpretation Comme nts CALCIUM, IONIZED (test code = 89928) 5.50 MG/DL Delfino Schumacher [id number] 00:00:00* Test Item Value Reference Range Interpretation Comme nts CALCIUM (test code = 2209) 10.6 MG/DL Delfino Schumacher [id number] 00:00:00* Test Item Value Reference Range Interpretation Comme nts PHOSPHORUS (test code = 2227) 2.9 MG/DL Delfino Schumacher [place] [id number] 00:00:00* Test Item Value Reference Range Interpretation Comme nts INTACT PTH (test code = 5005) 60 PG/ML Delfino OrtaCALCIUM, [id number] 00:00:00* Test Item Value Reference Range Interpretation Comme nts CALCIUM, IONIZED (test code = 78835) 5.50 MG/DL Delfino [id number] 00:00:00* Test Item Value Reference Range Interpretation Comme nts CALCIUM (test code = 2209) 10.6 MG/DL Delfino [id number] 00:00:00* Test Item Value Reference Range Interpretation Comme nts PHOSPHORUS (test code = 2227) 2.9 MG/DL Delfino SarmientoLTNIALL, [id number] 09:25:56SPECIMEN NUMBER: [id number] CULTURE, URINE SPECIMEN NUMBER: [id number] SPECIMEN COMMENT: URINE SOURCE: URINE REPORT STATUS: FINAL FINAL REPORT: 03/09/2023 10-50,000 CFU/ML UROGENITAL KARLA PRESENT NO COMMON PATHOGENSCULTURE, [id number] 00:00:00* Test Item Value Reference Range Interpretation Comme nts CULTURE, URINE (test code = 62390) SPECIMEN NUMBER: [id number] Delfino OrtaCULTURE, [id number] 00:00:00* Test Item Value Reference Range Interpretation Comme nts CULTURE, URINE (test code = 35238) SPECIMEN NUMBER: [id number] Delfino OrtaCULTURE, [id number] 00:00:00* Test Item Value Reference Range Interpretation Comme nts CULTURE, URINE (test code = 69751) SPECIMEN NUMBER: [id number] Delfino OrtaCULTURE, [id number] 00:00:00* Test Item Value Reference Range Interpretation Comme nts CULTURE, URINE (test code = 08943) SPECIMEN NUMBER: [id number] Delfino OrtaCULTURE, [id number] 00:00:00* Test Item Value Reference Range Interpretation Comme nts CULTURE, URINE (test code = 17973) SPECIMEN NUMBER: [id number] Delfino OrtaCULTURE, [id number] 00:00:00* Test Item Value Reference Range Interpretation Comme nts CULTURE, URINE (test code = 20882) SPECIMEN NUMBER: [id number] Delfino Cedeño [id number] 00:00:00* Test Item Value Reference Range Interpretation Comme nts CULTURE, URINE (test code = 70478) SPECIMEN NUMBER: [id number] Delfino Cedeño [id number] 00:00:00* Test Item Value Reference Range Interpretation Comme nts CULTURE, URINE (test code = 90925) SPECIMEN NUMBER: [id number] Delfino Cedeño [id number] 00:00:00* Test Item Value Reference Range Interpretation Comme nts CULTURE, URINE (test code = 69355) SPECIMEN NUMBER: [id number] [id number] 00:00:00* Test Item Value Reference Range Interpretation Comme nts CULTURE, URINE (test code = 99360) SPECIMEN NUMBER: [id number] Delfino Cedeño [id number] 00:00:00* Test Item Value Reference Range Interpretation Comme nts CULTURE, URINE (test code = 51642) SPECIMEN NUMBER: [id number] Delfino Cedeño [id number] 00:00:00* Test Item Value Reference Range Interpretation Comme nts CULTURE, URINE (test code = 34358) SPECIMEN NUMBER: [id number] Delfino Cedeño [id number] 00:00:00* Test Item Value Reference Range Interpretation Comme nts CULTURE, URINE (test code = 27546) SPECIMEN NUMBER: [id number] Delfino Cedeño [id number] 00:00:00* Test Item Value Reference Range Interpretation Comme nts CULTURE, URINE (test code = 83826) SPECIMEN NUMBER: [id number] Delfino Cedeño [id number] 00:00:00* Test Item Value Reference Range Interpretation Comme nts CULTURE, URINE (test code = 51196) SPECIMEN NUMBER: [id number] Delfino Cedeño [id number] 00:00:00* Test Item Value Reference Range Interpretation Comme nts CULTURE, URINE (test code = 04784) SPECIMEN NUMBER: [id number] Delfino Cedeño [id number] 00:00:00* Test Item Value Reference Range Interpretation Comme nts CULTURE, URINE (test code = 88657) SPECIMEN NUMBER: [id number] Delfino Cedeño, [id number] 00:00:00* Test Item Value Reference Range Interpretation Comme nts CULTURE, URINE (test code = 52503) SPECIMEN NUMBER: [id number] Delfino Cedeño, [id number] 00:00:00* Test Item Value Reference Range Interpretation Comme nts CULTURE, URINE (test code = 14739) SPECIMEN NUMBER: [id number] Delfino OrtaCOMPREHENSIVE METABOLIC [id number] 04:45:25* Test Item Value Reference Range Interpretation Comme nts GLUCOSE (test code = 7) 87 MG/DL 70-99 BUN (test code = 2207) 32 MG/DL 8-23 H CREATININE (test code = 2214) 1.39 MG/DL 0.60-1.30 H eGFR (2020 CKD-EPI) (test co de = 40950) 43 ML/MIN/1.73 >60 L CALC BUN/CREAT (test [...] code = 2219) 32 U/L 5-40 LIPID [id number] 04:45:25* Test Item Value Reference Range Interpretation [...] SPECIMENS. FOR MOREINFORMATION, SEE CLIENT ANNOUNCEMENT AT [email or web address] RISK RATIO LDL/HDL (test code = 2238) 0.58 RATIO <3.22 UNLESS OTHERW ISE INDICATED, ALL TESTING PERFORMED AT [facility] [address] [place] [address] SPANISH INTERPRETER/TRANSLATOR: ABBI SHORT M.D. [place] NUMBER [id number] [facility]. [id number] COMPREHENSIVE METABOLIC [id number] 00:00:00* Test Item Value Reference Range Interpretation Comme nts GLUCOSE (test code = 2217) 87 MG/DL BUN (test code = 2208) 32 MG/DL CREATININE (test code = 2214) 1.39 MG/DL eGFR (2020 CKD-EPI) (test co de = 50098) 43 ML/MIN/1.73 CALC BUN/CREAT (test code = [...] code = 2219) 32 U/L Delfino OrtaLIPID [id number] 00:00:00* Test Item Value Reference Range Interpretation Comme nts CHOLESTEROL (test code = 2210) 187 MG/DL TRIGLYCERIDES (test code = 2232) 58 MG/DL HDL CHOLESTEROL (test code = 2220) 110 MG/DL CALC LDL CHOL (test code = 2237) 64 MG/DL RISK RATIO LDL/HDL (test cod e = 2238) 0.58 RATIO Delfino OrtaLIPID [id number] 00:00:00* Test Item Value Reference Range Interpretation Comme nts CHOLESTEROL (test code = 2210) 187 MG/DL TRIGLYCERIDES (test code = 2232) 58 MG/DL HDL CHOLESTEROL (test code = 2220) 110 MG/DL CALC LDL CHOL (test code = 2237) 64 MG/DL RISK RATIO LDL/HDL (test cod e = 2238) 0.58 RATIO Delfino OrtaCOMPREHENSIVE METABOLIC [id number] 00:00:00* Test Item Value Reference Range Interpretation Comme nts GLUCOSE (test code = 2217) 87 MG/DL BUN (test code = 2208) 32 MG/DL CREATININE (test code = 2214) 1.39 MG/DL eGFR (2020 CKD-EPI) (test co de = 84696) 43 ML/MIN/1.73 CALC BUN/CREAT (test code = [...] code = 2219) 32 U/L Delfino OrtaLIPID [id number] 00:00:00* Test Item Value Reference Range Interpretation Comme nts CHOLESTEROL (test code = 2210) 187 MG/DL TRIGLYCERIDES (test code = 2232) 58 MG/DL HDL CHOLESTEROL (test code = 2220) 110 MG/DL CALC LDL CHOL (test code = 2237) 64 MG/DL RISK RATIO LDL/HDL (test cod e = 2238) 0.58 RATIO Delfino Schumacher AustinCOMPREHENSIVE METABOLIC [id number] 00:00:00* Test Item Value Reference Range Interpretation Comme nts GLUCOSE (test code = 2217) 87 MG/DL BUN (test code = 2208) 32 MG/DL CREATININE (test code = 2214) 1.39 MG/DL eGFR (2020 CKD-EPI) (test co de = 07441) 43 ML/MIN/1.73 CALC BUN/CREAT (test code = [...] code = 2219) 32 U/L Delfino OrtaLIPID [id number] 00:00:00* Test Item Value Reference Range Interpretation Comme nts CHOLESTEROL (test code = 2210) 187 MG/DL TRIGLYCERIDES (test code = 2232) 58 MG/DL HDL CHOLESTEROL (test code = 2220) 110 MG/DL CALC LDL CHOL (test code = 2237) 64 MG/DL RISK RATIO LDL/HDL (test cod e = 2238) 0.58 RATIO Delfino Schumacher AustinCOMPREHENSIVE METABOLIC [id number] 00:00:00* Test Item Value Reference Range Interpretation Comme nts GLUCOSE (test code = 2217) 87 MG/DL BUN (test code = 2208) 32 MG/DL CREATININE (test code = 2214) 1.39 MG/DL eGFR (2020 CKD-EPI) (test co de = 82471) 43 ML/MIN/1.73 CALC BUN/CREAT (test code = [...] code = 2219) 32 U/L Delfino Schumacher [place] [id number] 00:00:00* Test Item Value Reference Range Interpretation Comme nts CHOLESTEROL (test code = 2210) 187 MG/DL TRIGLYCERIDES (test code = 2232) 58 MG/DL HDL CHOLESTEROL (test code = 2220) 110 MG/DL CALC LDL CHOL (test code = 2237) 64 MG/DL RISK RATIO LDL/HDL (test cod e = 2238) 0.58 RATIO Delfino Endy YouCOMPREHENSIVE METABOLIC [id number] 00:00:00* Test Item Value Reference Range Interpretation Comme nts GLUCOSE (test code = 2217) 87 MG/DL BUN (test code = 2208) 32 MG/DL CREATININE (test code = 2214) 1.39 MG/DL eGFR (2020 CKD-EPI) (test co de = 64772) 43 ML/MIN/1.73 CALC BUN/CREAT (test code = [...] code = 2219) 32 U/L Delfino OrtaLIPID [id number] 00:00:00* Test Item Value Reference Range Interpretation Comme nts CHOLESTEROL (test code = 2210) 187 MG/DL TRIGLYCERIDES (test code = 2232) 58 MG/DL HDL CHOLESTEROL (test code = 2220) 110 MG/DL CALC LDL CHOL (test code = 2237) 64 MG/DL RISK RATIO LDL/HDL (test cod e = 2238) 0.58 RATIO Delfino OrtaCOMPREHENSIVE METABOLIC [id number] 00:00:00* Test Item Value Reference Range Interpretation Comme nts GLUCOSE (test code = 2217) 87 MG/DL BUN (test code = 2208) 32 MG/DL CREATININE (test code = 2214) 1.39 MG/DL eGFR (2020 CKD-EPI) (test co de = 54929) 43 ML/MIN/1.73 CALC BUN/CREAT (test code = [...] code = 2219) 32 U/L Delfino OrtaLIPID [id number] 00:00:00* Test Item Value Reference Range Interpretation Comme nts CHOLESTEROL (test code = 2210) 187 MG/DL TRIGLYCERIDES (test code = 2232) 58 MG/DL HDL CHOLESTEROL (test code = 2220) 110 MG/DL CALC LDL CHOL (test code = 2237) 64 MG/DL RISK RATIO LDL/HDL (test cod e = 2238) 0.58 RATIO Delfino OrtaCOMPREHENSIVE METABOLIC [id number] 00:00:00* Test Item Value Reference Range Interpretation Comme nts GLUCOSE (test code = 2217) 87 MG/DL BUN (test code = 2208) 32 MG/DL CREATININE (test code = 2214) 1.39 MG/DL eGFR (2020 CKD-EPI) (test co de = 03749) 43 ML/MIN/1.73 CALC BUN/CREAT (test code = [...] code = 2219) 32 U/L Delfino OrtaLIPID [id number] 00:00:00* Test Item Value Reference Range Interpretation Comme nts CHOLESTEROL (test code = 2210) 187 MG/DL TRIGLYCERIDES (test code = 2232) 58 MG/DL HDL CHOLESTEROL (test code = 2220) 110 MG/DL CALC LDL CHOL (test code = 2237) 64 MG/DL RISK RATIO LDL/HDL (test cod e = 2238) 0.58 RATIO Delfino OrtaCOMPREHENSIVE METABOLIC [id number] 00:00:00* Test Item Value Reference Range Interpretation Comme nts GLUCOSE (test code = 2217) 87 MG/DL BUN (test code = 2208) 32 MG/DL CREATININE (test code = 2214) 1.39 MG/DL eGFR (2020 CKD-EPI) (test co de = 83339) 43 ML/MIN/1.73 CALC BUN/CREAT (test code = [...] code = 2219) 32 U/L Delfino OrtaLIPID [id number] 00:00:00* Test Item Value Reference Range Interpretation Comme nts CHOLESTEROL (test code = 2210) 187 MG/DL TRIGLYCERIDES (test code = 2232) 58 MG/DL HDL CHOLESTEROL (test code = 2220) 110 MG/DL CALC LDL CHOL (test code = 2237) 64 MG/DL RISK RATIO LDL/HDL (test cod e = 2238) 0.58 RATIO Delfino OrtaCOMPREHENSIVE METABOLIC [id number] 00:00:00* Test Item Value Reference Range Interpretation Comme nts GLUCOSE (test code = 2217) 87 MG/DL BUN (test code = 2208) 32 MG/DL CREATININE (test code = 2214) 1.39 MG/DL eGFR (2020 CKD-EPI) (test co de = 97100) 43 ML/MIN/1.73 CALC BUN/CREAT (test code = [...] code = 2219) 32 U/L Delfino Schumacher [place] [id number] 00:00:00* Test Item Value Reference Range Interpretation Comme nts CHOLESTEROL (test code = 2210) 187 MG/DL TRIGLYCERIDES (test code = 2232) 58 MG/DL HDL CHOLESTEROL (test code = 2220) 110 MG/DL CALC LDL CHOL (test code = 2237) 64 MG/DL RISK RATIO LDL/HDL (test cod e = 2238) 0.58 RATIO Delfino Schumacher YouCOMPREHENSIVE METABOLIC [id number] 00:00:00* Test Item Value Reference Range Interpretation Comme nts GLUCOSE (test code = 2217) 87 MG/DL BUN (test code = 2208) 32 MG/DL CREATININE (test code = 2214) 1.39 MG/DL eGFR (2020 CKD-EPI) (test co de = 74532) 43 ML/MIN/1.73 CALC BUN/CREAT (test code = [...] = 2219) 32 U/L Delfino Schumacher [place] [id number] 00:00:00* Test Item Value Reference Range Interpretation Comme nts CHOLESTEROL (test code = 2210) 187 MG/DL TRIGLYCERIDES (test code = 2232) 58 MG/DL HDL CHOLESTEROL (test code = 2220) 110 MG/DL CALC LDL CHOL (test code = 2237) 64 MG/DL RISK RATIO LDL/HDL (test cod e = 2238) 0.58 RATIO Delfino OrtaCOMPREHENSIVE METABOLIC [id number] 00:00:00* Test Item Value Reference Range Interpretation Comme nts GLUCOSE (test code = 2217) 87 MG/DL BUN (test code = 2208) 32 MG/DL CREATININE (test code = 2214) 1.39 MG/DL eGFR (2020 CKD-EPI) (test co de = 05478) 43 ML/MIN/1.73 CALC BUN/CREAT (test code = [...] = 2219) 32 U/L Delfino Schumacher [place]LIP[place] [id number] 00:00:00* Test Item Value Reference Range Interpretation Comme nts CHOLESTEROL (test code = 2210) 187 MG/DL TRIGLYCERIDES (test code = 2232) 58 MG/DL HDL CHOLESTEROL (test code = 2220) 110 MG/DL CALC LDL CHOL (test code = 2237) 64 MG/DL RISK RATIO LDL/HDL (test cod e = 2238) 0.58 RATIO Delfino OrtaCOMPREHENSIVE METABOLIC [id number] 00:00:00* Test Item Value Reference Range Interpretation Comme nts GLUCOSE (test code = 2217) 87 MG/DL BUN (test code = 2208) 32 MG/DL CREATININE (test code = 2214) 1.39 MG/DL eGFR (2020 CKD-EPI) (test co de = 59339) 43 ML/MIN/1.73 CALC BUN/CREAT (test code = [...] = 2219) 32 U/L Delfino Schumacher [place]LIP[place] [id number] 00:00:00* Test Item Value Reference Range Interpretation Comme nts CHOLESTEROL (test code = 2210) 187 MG/DL TRIGLYCERIDES (test code = 2232) 58 MG/DL HDL CHOLESTEROL (test code = 2220) 110 MG/DL CALC LDL CHOL (test code = 2237) 64 MG/DL RISK RATIO LDL/HDL (test cod e = 2238) 0.58 RATIO Delfino OrtaCOMPREHENSIVE METABOLIC [id number] 00:00:00* Test Item Value Reference Range Interpretation Comme nts GLUCOSE (test code = 2217) 87 MG/DL BUN (test code = 2208) 32 MG/DL CREATININE (test code = 2214) 1.39 MG/DL eGFR (2020 CKD-EPI) (test co de = 25233) 43 ML/MIN/1.73 CALC BUN/CREAT (test code = [...] code = 2219) 32 U/L Delfino Endy [place] [id number] 00:00:00* Test Item Value Reference Range Interpretation Comme nts CHOLESTEROL (test code = 2210) 187 MG/DL TRIGLYCERIDES (test code = 2232) 58 MG/DL HDL CHOLESTEROL (test code = 2220) 110 MG/DL CALC LDL CHOL (test code = 2237) 64 MG/DL RISK RATIO LDL/HDL (test cod e = 2238) 0.58 RATIO Delfino Schumacher YouCOMPREHENSIVE METABOLIC [id number] 00:00:00* Test Item Value Reference Range Interpretation Comme nts GLUCOSE (test code = 2217) 87 MG/DL BUN (test code = 2208) 32 MG/DL CREATININE (test code = 2214) 1.39 MG/DL eGFR (2020 CKD-EPI) (test co de = 34492) 43 ML/MIN/1.73 CALC BUN/CREAT (test code = [...] code = 2219) 32 U/L Delfino OrtaLIPID [id number] 00:00:00* Test Item Value Reference Range Interpretation Comme nts CHOLESTEROL (test code = 2210) 187 MG/DL TRIGLYCERIDES (test code = 2232) 58 MG/DL HDL CHOLESTEROL (test code = 2220) 110 MG/DL CALC LDL CHOL (test code = 2237) 64 MG/DL RISK RATIO LDL/HDL (test cod e = 2238) 0.58 RATIO Delfino OrtaCOMPREHENSIVE METABOLIC [id number] 00:00:00* Test Item Value Reference Range Interpretation Comme nts GLUCOSE (test code = 2217) 87 MG/DL BUN (test code = 2208) 32 MG/DL CREATININE (test code = 2214) 1.39 MG/DL eGFR (2020 CKD-EPI) (test co de = 39910) 43 ML/MIN/1.73 CALC BUN/CREAT (test code = [...] code = 2219) 32 U/L Delfino OrtaLIPID [id number] 00:00:00* Test Item Value Reference Range Interpretation Comme nts CHOLESTEROL (test code = 2210) 187 MG/DL TRIGLYCERIDES (test code = 2232) 58 MG/DL HDL CHOLESTEROL (test code = 2220) 110 MG/DL CALC LDL CHOL (test code = 2237) 64 MG/DL RISK RATIO LDL/HDL (test cod e = 2238) 0.58 RATIO Delfino OrtaCOMPREHENSIVE METABOLIC [id number] 00:00:00* Test Item Value Reference Range Interpretation Comme nts GLUCOSE (test code = 2217) 87 MG/DL BUN (test code = 2208) 32 MG/DL CREATININE (test code = 2214) 1.39 MG/DL eGFR (2020 CKD-EPI) (test co de = 08240) 43 ML/MIN/1.73 CALC BUN/CREAT (test code = [...] = 2219) 32 U/L Delfino Schumacher [place] [id number] 00:00:00* Test Item Value Reference Range Interpretation Comme nts CHOLESTEROL (test code = 2210) 187 MG/DL TRIGLYCERIDES (test code = 2232) 58 MG/DL HDL CHOLESTEROL (test code = 2220) 110 MG/DL CALC LDL CHOL (test code = 2237) 64 MG/DL RISK RATIO LDL/HDL (test cod e = 2238) 0.58 RATIO Delfino OrtaCOMPREHENSIVE METABOLIC [id number] 00:00:00* Test Item Value Reference Range Interpretation Comme nts GLUCOSE (test code = 2217) 87 MG/DL BUN (test code = 2208) 32 MG/DL CREATININE (test code = 2214) 1.39 MG/DL eGFR (2020 CKD-EPI) (test co de = 62037) 43 ML/MIN/1.73 CALC BUN/CREAT (test code = [...] = 2219) 32 U/L Delfino OrtaCOMPREHENSIVE METABOLIC [id number] 00:00:00* Test Item Value Reference Range Interpretation Comme nts GLUCOSE (test code = 2217) 87 MG/DL BUN (test code = 2208) 32 MG/DL CREATININE (test code = 2214) 1.39 MG/DL eGFR (2020 CKD-EPI) (test co de = 42818) 43 ML/MIN/1.73 CALC BUN/CREAT (test code = [...] code = 2219) 32 U/L Delfino OrtaLIPID [id number] 00:00:00* Test Item Value Reference Range Interpretation Comme nts CHOLESTEROL (test code = 2210) 187 MG/DL TRIGLYCERIDES (test code = 2232) 58 MG/DL HDL CHOLESTEROL (test code = 2220) 110 MG/DL CALC LDL CHOL (test code = 2237) 64 MG/DL RISK RATIO LDL/HDL (test cod e = 2238) 0.58 RATIO Delfino OrtaCOMPREHENSIVE METABOLIC [id number] 00:00:00* Test Item Value Reference Range Interpretation Comme nts GLUCOSE (test code = 2217) 87 MG/DL BUN (test code = 2208) 32 MG/DL CREATININE (test code = 2214) 1.39 MG/DL eGFR (2020 CKD-EPI) (test co de = 53870) 43 ML/MIN/1.73 CALC BUN/CREAT (test code = [...] code = 2219) 32 U/L Delfino OrtaLIPID [id number] 00:00:00* Test Item Value Reference Range Interpretation Comme nts CHOLESTEROL (test code = 2210) 187 MG/DL TRIGLYCERIDES (test code = 2232) 58 MG/DL HDL CHOLESTEROL (test code = 2220) 110 MG/DL CALC LDL CHOL (test code = 2237) 64 MG/DL RISK RATIO LDL/HDL (test cod e = 2238) 0.58 RATIO Delfino Schumacher [place] [id number] 00:00:00* Test Item Value Reference Range Interpretation Comme nts CHOLESTEROL (test code = 2210) 183 MG/DL TRIGLYCERIDES (test code = 2232) 69 MG/DL HDL CHOLESTEROL (test code = 2220) 93 MG/DL CALC LDL CHOL (test code = 2237) 75 MG/DL RISK RATIO LDL/HDL (test cod e = 2238) 0.81 RATIO Delfino Schumacher AustinCOMPREHENSIVE METABOLIC [id number] 00:00:00* Test Item Value Reference Range Interpretation Comme nts GLUCOSE (test code = 2217) 74 MG/DL BUN (test code = 2208) 16 MG/DL CREATININE (test code = 2214) 0.96 MG/DL eGFR (2020 CKD-EPI) (test co de = 59702) 69 ML/MIN/1.73 CALC BUN/CREAT (test code = [...] = 2219) 13 U/L Delfino Schumacher [place] [id number] 00:00:00* Test Item Value Reference Range Interpretation Comme nts CHOLESTEROL (test code = 2210) 183 MG/DL TRIGLYCERIDES (test code = 2232) 69 MG/DL HDL CHOLESTEROL (test code = 2220) 93 MG/DL CALC LDL CHOL (test code = 2237) 75 MG/DL RISK RATIO LDL/HDL (test cod e = 2238) 0.81 RATIO Delfino Schumacher [place] [id number] 00:00:00* Test Item Value Reference Range Interpretation Comme nts GLUCOSE (test code = 2217) 74 MG/DL BUN (test code = 2208) 16 MG/DL CREATININE (test code = 2214) 0.96 MG/DL eGFR (2020 CKD-EPI) (test co de = 77570) 69 ML/MIN/1.73 CALC BUN/CREAT (test code = [...] = 2219) 13 U/L Delfino Schumacher [place] [id number] 00:00:00* Test Item Value Reference Range Interpretation Comme nts CHOLESTEROL (test code = 2210) 183 MG/DL TRIGLYCERIDES (test code = 2232) 69 MG/DL HDL CHOLESTEROL (test code = 2220) 93 MG/DL CALC LDL CHOL (test code = 2237) 75 MG/DL RISK RATIO LDL/HDL (test cod e = 2238) 0.81 RATIO Delfino Schumacher [place] [id number] 00:00:00* Test Item Value Reference Range Interpretation Comme nts GLUCOSE (test code = 2217) 74 MG/DL BUN (test code = 2208) 16 MG/DL CREATININE (test code = 2214) 0.96 MG/DL eGFR (2020 CKD-EPI) (test co de = 28665) 69 ML/MIN/1.73 CALC BUN/CREAT (test code = [...] code = 2219) 13 U/L Delfino OrtaLIPID [id number] 00:00:00* Test Item Value Reference Range Interpretation Comme nts CHOLESTEROL (test code = 2210) 183 MG/DL TRIGLYCERIDES (test code = 2232) 69 MG/DL HDL CHOLESTEROL (test code = 2220) 93 MG/DL CALC LDL CHOL (test code = 2237) 75 MG/DL RISK RATIO LDL/HDL (test cod e = 2238) 0.81 RATIO Delfino OrtaCOMPREHENSIVE METABOLIC [id number] 00:00:00* Test Item Value Reference Range Interpretation Comme nts GLUCOSE (test code = 2217) 74 MG/DL BUN (test code = 2208) 16 MG/DL CREATININE (test code = 2214) 0.96 MG/DL eGFR (2020 CKD-EPI) (test co de = 31927) 69 ML/MIN/1.73 CALC BUN/CREAT (test code = [...] code = 2219) 13 U/L Delfino OrtaLIPID [id number] 00:00:00* Test Item Value Reference Range Interpretation Comme nts CHOLESTEROL (test code = 2210) 183 MG/DL TRIGLYCERIDES (test code = 2232) 69 MG/DL HDL CHOLESTEROL (test code = 2220) 93 MG/DL CALC LDL CHOL (test code = 2237) 75 MG/DL RISK RATIO LDL/HDL (test cod e = 2238) 0.81 RATIO Delfino OrtaCOMPREHENSIVE METABOLIC [id number] 00:00:00* Test Item Value Reference Range Interpretation Comme nts GLUCOSE (test code = 2217) 74 MG/DL BUN (test code = 2208) 16 MG/DL CREATININE (test code = 2214) 0.96 MG/DL eGFR (2020 CKD-EPI) (test co de = 15973) 69 ML/MIN/1.73 CALC BUN/CREAT (test code = [...] = 2219) 13 U/L Delfino Schumacher [place]IP[place] [id number] 00:00:00* Test Item Value Reference Range Interpretation Comme nts CHOLESTEROL (test code = 2210) 183 MG/DL TRIGLYCERIDES (test code = 2232) 69 MG/DL HDL CHOLESTEROL (test code = 2220) 93 MG/DL CALC LDL CHOL (test code = 2237) 75 MG/DL RISK RATIO LDL/HDL (test cod e = 2238) 0.81 RATIO Delfino Schumacher AustinCOMPREHENSIVE METABOLIC [id number] 00:00:00* Test Item Value Reference Range Interpretation Comme nts GLUCOSE (test code = 2217) 74 MG/DL BUN (test code = 2208) 16 MG/DL CREATININE (test code = 2214) 0.96 MG/DL eGFR (2020 CKD-EPI) (test co de = 70437) 69 ML/MIN/1.73 CALC BUN/CREAT (test code = [...] = 2219) 13 U/L Delfino Schumacher [place] [id number] 00:00:00* Test Item Value Reference Range Interpretation Comme nts CHOLESTEROL (test code = 2210) 183 MG/DL TRIGLYCERIDES (test code = 2232) 69 MG/DL HDL CHOLESTEROL (test code = 2220) 93 MG/DL CALC LDL CHOL (test code = 2237) 75 MG/DL RISK RATIO LDL/HDL (test cod e = 2238) 0.81 RATIO Delfino Schumacher AustinCOMPREHENSIVE METABOLIC [id number] 00:00:00* Test Item Value Reference Range Interpretation Comme nts GLUCOSE (test code = 2217) 74 MG/DL BUN (test code = 2208) 16 MG/DL CREATININE (test code = 2214) 0.96 MG/DL eGFR (2020 CKD-EPI) (test co de = 21485) 69 ML/MIN/1.73 CALC BUN/CREAT (test code = [...] code = 2219) 13 U/L Delfino OrtaLIPID [id number] 00:00:00* Test Item Value Reference Range Interpretation Comme nts CHOLESTEROL (test code = 2210) 183 MG/DL TRIGLYCERIDES (test code = 2232) 69 MG/DL HDL CHOLESTEROL (test code = 2220) 93 MG/DL CALC LDL CHOL (test code = 2237) 75 MG/DL RISK RATIO LDL/HDL (test cod e = 2238) 0.81 RATIO Delfino F YouCOMPREHENSIVE METABOLIC [id number] 00:00:00* Test Item Value Reference Range Interpretation Comme nts GLUCOSE (test code = 2217) 74 MG/DL BUN (test code = 2208) 16 MG/DL CREATININE (test code = 2214) 0.96 MG/DL eGFR (2020 CKD-EPI) (test co de = 01967) 69 ML/MIN/1.73 CALC BUN/CREAT (test code = [...] = 2219) 13 U/L Delfino Schumacher [place] [id number] 00:00:00* Test Item Value Reference Range Interpretation Comme nts CHOLESTEROL (test code = 2210) 183 MG/DL TRIGLYCERIDES (test code = 2232) 69 MG/DL HDL CHOLESTEROL (test code = 2220) 93 MG/DL CALC LDL CHOL (test code = 2237) 75 MG/DL RISK RATIO LDL/HDL (test cod e = 2238) 0.81 RATIO Delfino OrtaCOMPREHENSIVE METABOLIC [id number] 00:00:00* Test Item Value Reference Range Interpretation Comme nts GLUCOSE (test code = 2217) 74 MG/DL BUN (test code = 2208) 16 MG/DL CREATININE (test code = 2214) 0.96 MG/DL eGFR (2020 CKD-EPI) (test co de = 20007) 69 ML/MIN/1.73 CALC BUN/CREAT (test code = [...] = 2219) 13 U/L Delfino Schumacher [place] [id number] 00:00:00* Test Item Value Reference Range Interpretation Comme nts CHOLESTEROL (test code = 2210) 183 MG/DL TRIGLYCERIDES (test code = 2232) 69 MG/DL HDL CHOLESTEROL (test code = 2220) 93 MG/DL CALC LDL CHOL (test code = 2237) 75 MG/DL RISK RATIO LDL/HDL (test cod e = 2238) 0.81 RATIO Delfino OrtaCOMPREHENSIVE METABOLIC [id number] 00:00:00* Test Item Value Reference Range Interpretation Comme nts GLUCOSE (test code = 2217) 74 MG/DL BUN (test code = 2208) 16 MG/DL CREATININE (test code = 2214) 0.96 MG/DL eGFR (2020 CKD-EPI) (test co de = 16107) 69 ML/MIN/1.73 CALC BUN/CREAT (test code = [...] = 2219) 13 U/L Delfino Schumacher AustinL[place] [id number] 00:00:00* Test Item Value Reference Range Interpretation Comme nts CHOLESTEROL (test code = 2210) 183 MG/DL TRIGLYCERIDES (test code = 2232) 69 MG/DL HDL CHOLESTEROL (test code = 2220) 93 MG/DL CALC LDL CHOL (test code = 2237) 75 MG/DL RISK RATIO LDL/HDL (test cod e = 2238) 0.81 RATIO Delfino OrtaCOMPREHENSIVE METABOLIC [id number] 00:00:00* Test Item Value Reference Range Interpretation Comme nts GLUCOSE (test code = 2217) 74 MG/DL BUN (test code = 2208) 16 MG/DL CREATININE (test code = 2214) 0.96 MG/DL eGFR (2020 CKD-EPI) (test co de = 87778) 69 ML/MIN/1.73 CALC BUN/CREAT (test code = [...] code = 2219) 13 U/L Delfino Schumacher [place] [id number] 00:00:00* Test Item Value Reference Range Interpretation Comme nts CHOLESTEROL (test code = 2210) 183 MG/DL TRIGLYCERIDES (test code = 2232) 69 MG/DL HDL CHOLESTEROL (test code = 2220) 93 MG/DL CALC LDL CHOL (test code = 2237) 75 MG/DL RISK RATIO LDL/HDL (test cod e = 2238) 0.81 RATIO Delfino Schumacher YouCOMPREHENSIVE METABOLIC [id number] 00:00:00* Test Item Value Reference Range Interpretation Comme nts GLUCOSE (test code = 2217) 74 MG/DL BUN (test code = 2208) 16 MG/DL CREATININE (test code = 2214) 0.96 MG/DL eGFR (2020 CKD-EPI) (test co de = 39507) 69 ML/MIN/1.73 CALC BUN/CREAT (test code = [...] = 2219) 13 U/L Delfino Schumacher [place] [id number] 00:00:00* Test Item Value Reference Range Interpretation Comme nts CHOLESTEROL (test code = 2210) 183 MG/DL TRIGLYCERIDES (test code = 2232) 69 MG/DL HDL CHOLESTEROL (test code = 2220) 93 MG/DL CALC LDL CHOL (test code = 2237) 75 MG/DL RISK RATIO LDL/HDL (test cod e = 2238) 0.81 RATIO Delfino OrtaCOMPREHENSIVE METABOLIC [id number] 00:00:00* Test Item Value Reference Range Interpretation Comme nts GLUCOSE (test code = 2217) 74 MG/DL BUN (test code = 2208) 16 MG/DL CREATININE (test code = 2214) 0.96 MG/DL eGFR (2020 CKD-EPI) (test co de = 97511) 69 ML/MIN/1.73 CALC BUN/CREAT (test code = [...] = 2219) 13 U/L Delfino Schumacher [place] [id number] 00:00:00* Test Item Value Reference Range Interpretation Comme nts CHOLESTEROL (test code = 2210) 183 MG/DL TRIGLYCERIDES (test code = 2232) 69 MG/DL HDL CHOLESTEROL (test code = 2220) 93 MG/DL CALC LDL CHOL (test code = 2237) 75 MG/DL RISK RATIO LDL/HDL (test cod e = 2238) 0.81 RATIO Delfino Schumacher [place] Antonio[place]PREHENSIVE METABOL[place] [id number] 00:00:00* Test Item Value Reference Range Interpretation Comme nts GLUCOSE (test code = 2217) 74 MG/DL BUN (test code = 2208) 16 MG/DL CREATININE (test code = 2214) 0.96 MG/DL eGFR (2020 CKD-EPI) (test co de = 48330) 69 ML/MIN/1.73 CALC BUN/CREAT (test code = [...] code = 2219) 13 U/L Delfino Schumacher [place] Antonio[place]PREHENSIVE METABOL[place] [id number] 00:00:00* Test Item Value Reference Range Interpretation Comme nts GLUCOSE (test code = 2217) 74 MG/DL BUN (test code = 2208) 16 MG/DL CREATININE (test code = 2214) 0.96 MG/DL eGFR (2020 CKD-EPI) (test co de = 20957) 69 ML/MIN/1.73 CALC BUN/CREAT (test code = [...] (test code = 2219) 13 U/L LIPID [id number] 00:00:00* Test Item Value Reference Range Interpretation Comme nts CHOLESTEROL (test code = 2210) 183 MG/DL TRIGLYCERIDES (test code = 2232) 69 MG/DL HDL CHOLESTEROL (test code = 2220) 93 MG/DL CALC LDL CHOL (test code = 2237) 75 MG/DL RISK RATIO LDL/HDL (test cod e = 2238) 0.81 RATIO LIPID [id number] 00:00:00* Test Item Value Reference Range Interpretation Comme nts CHOLESTEROL (test code = 2210) 183 MG/DL TRIGLYCERIDES (test code = 2232) 69 MG/DL HDL CHOLESTEROL (test code = 2220) 93 MG/DL CALC LDL CHOL (test code = 2237) 75 MG/DL RISK RATIO LDL/HDL (test cod e = 2238) 0.81 RATIO Delfino F AustinCOMPREHENSIVE METABOLIC [id number] 00:00:00* Test Item Value Reference Range Interpretation Comme nts GLUCOSE (test code = 2217) 74 MG/DL BUN (test code = 2208) 16 MG/DL CREATININE (test code = 2214) 0.96 MG/DL eGFR (2020 CKD-EPI) (test co de = 36698) 69 ML/MIN/1.73 CALC BUN/CREAT (test code = [...] = 2219) 13 U/L Delfino OrtaCOMPREHENSIVE METABOLIC [id number] 00:00:00* Test Item Value Reference Range Interpretation Comme nts GLUCOSE (test code = 2217) 74 MG/DL BUN (test code = 2208) 16 MG/DL CREATININE (test code = 2214) 0.96 MG/DL eGFR (2020 CKD-EPI) (test co de = 13181) 69 ML/MIN/1.73 CALC BUN/CREAT (test code = [...] = 2219) 13 U/L Delfino Schumacher [place] [id number] 00:00:00* Test Item Value Reference Range Interpretation Comme nts CHOLESTEROL (test code = 2210) 183 MG/DL TRIGLYCERIDES (test code = 2232) 69 MG/DL HDL CHOLESTEROL (test code = 2220) 93 MG/DL CALC LDL CHOL (test code = 2237) 75 MG/DL RISK RATIO LDL/HDL (test cod e = 2238) 0.81 RATIO Delfino Schumacher AustinCOMPREHENSIVE METABOLIC [id number] 00:00:00* Test Item Value Reference Range Interpretation Comme nts GLUCOSE (test code = 2217) 74 MG/DL BUN (test code = 2208) 16 MG/DL CREATININE (test code = 2214) 0.96 MG/DL eGFR (2020 CKD-EPI) (test co de = 64847) 69 ML/MIN/1.73 CALC BUN/CREAT (test code = [...] = 2219) 13 U/L Delfino Schumacher AustinLIP[place] [id number] 00:00:00* Test Item Value Reference Range Interpretation Comme nts CHOLESTEROL (test code = 2210) 183 MG/DL TRIGLYCERIDES (test code = 2232) 69 MG/DL HDL CHOLESTEROL (test code = 2220) 93 MG/DL CALC LDL CHOL (test code = 2237) 75 MG/DL RISK RATIO LDL/HDL (test cod e = 2238) 0.81 RATIO Delfino Schumacher AustinLIP[place] [id number] 00:00:00* Test Item Value Reference Range Interpretation Comme nts CHOLESTEROL (test code = 2210) 183 MG/DL TRIGLYCERIDES (test code = 2232) 69 MG/DL HDL CHOLESTEROL (test code = 2220) 93 MG/DL CALC LDL CHOL (test code = 2237) 75 MG/DL RISK RATIO LDL/HDL (test cod e = 2238) 0.81 RATIO Delfino Schumacher AustinCOMPREHENSIVE METABOLIC [id number] 00:00:00* Test Item Value Reference Range Interpretation Comme nts GLUCOSE (test code = 2217) 74 MG/DL BUN (test code = 2208) 16 MG/DL CREATININE (test code = 2214) 0.96 MG/DL eGFR (2020 CKD-EPI) (test co de = 39444) 69 ML/MIN/1.73 CALC BUN/CREAT (test code = [...] = 2219) 13 U/L Delfino Schumacher [place]LIP[place] [id number] 00:00:00* Test Item Value Reference Range Interpretation Comme nts CHOLESTEROL (test code = 2210) 183 MG/DL TRIGLYCERIDES (test code = 2232) 69 MG/DL HDL CHOLESTEROL (test code = 2220) 93 MG/DL CALC LDL CHOL (test code = 2237) 75 MG/DL RISK RATIO LDL/HDL (test cod e = 2238) 0.81 RATIO Delfino Schumacher [place] Antonio[place]PREHENSIVE METABOL[place] [id number] 00:00:00* Test Item Value Reference Range Interpretation Comme nts GLUCOSE (test code = 2217) 74 MG/DL BUN (test code = 2208) 16 MG/DL CREATININE (test code = 2214) 0.96 MG/DL eGFR (2020 CKD-EPI) (test co de = 94438) 69 ML/MIN/1.73 CALC BUN/CREAT (test code = [...] code = 2219) 13 U/L Delfino Cedeño [id number] 09:14:59SPECIMEN NUMBER: [id number] CULTURE, URINE SPECIMEN NUMBER: [id number] SPECIMEN COMMENT: URINE SOURCE: URINE REPORT STATUS: FINAL FINAL REPORT: 07/05/2021 >100,000 CFU/ML MIXED MICROBIAL POPULATION PRESENT, NO PREDOMINATING ORGANISMS;PROBABLE CONTAMINANTS.CULTURE, [id number] 00:00:00* Test Item Value Reference Range Interpretation Comme nts CULTURE, URINE (test code = 97565) SPECIMEN NUMBER: [id number] Delfino Cedeño [id number] 00:00:00* Test Item Value Reference Range Interpretation Comme nts CULTURE, URINE (test code = 56162) SPECIMEN NUMBER: [id number] Delfino Cedeño [id number] 00:00:00* Test Item Value Reference Range Interpretation Comme nts CULTURE, URINE (test code = 95394) SPECIMEN NUMBER: [id number] Delfino Cedeño, [id number] 00:00:00* Test Item Value Reference Range Interpretation Comme nts CULTURE, URINE (test code = 79186) SPECIMEN NUMBER: [id number] Delfino Cedeño, [id number] 00:00:00* Test Item Value Reference Range Interpretation Comme nts CULTURE, URINE (test code = 19111) SPECIMEN NUMBER: [id number] Delfino Cedeño [id number] 00:00:00* Test Item Value Reference Range Interpretation Comme nts CULTURE, URINE (test code = 79699) SPECIMEN NUMBER: [id number] Delfino Cedeño, [id number] 00:00:00* Test Item Value Reference Range Interpretation Comme nts CULTURE, URINE (test code = 96735) SPECIMEN NUMBER: [id number] Delfino Cedeño [id number] 00:00:00* Test Item Value Reference Range Interpretation Comme nts CULTURE, URINE (test code = 73817) SPECIMEN NUMBER: [id number] Delfino Cedeño, [id number] 00:00:00* Test Item Value Reference Range Interpretation Comme nts CULTURE, URINE (test code = 90144) SPECIMEN NUMBER: [id number] Delfino Cedeño [id number] 00:00:00* Test Item Value Reference Range Interpretation Comme nts CULTURE, URINE (test code = 46185) SPECIMEN NUMBER: [id number] Delfino Cedeño, [id number] 00:00:00* Test Item Value Reference Range Interpretation Comme nts CULTURE, URINE (test code = 23358) SPECIMEN NUMBER: [id number] Delfino Cedeño, [id number] 00:00:00* Test Item Value Reference Range Interpretation Comme nts CULTURE, URINE (test code = 12217) SPECIMEN NUMBER: [id number] Delfino Cedeño, [id number] 00:00:00* Test Item Value Reference Range Interpretation Comme nts CULTURE, URINE (test code = 04681) SPECIMEN NUMBER: [id number] Delfino Cedeño, [id number] 00:00:00* Test Item Value Reference Range Interpretation Comme nts CULTURE, URINE (test code = 44990) SPECIMEN NUMBER: [id number] CULTURE, [id number] 00:00:00* Test Item Value Reference Range Interpretation Comme nts CULTURE, URINE (test code = 44210) SPECIMEN NUMBER: [id number] Delfino SarmientoLTNIALL, [id number] 00:00:00* Test Item Value Reference Range Interpretation Comme nts CULTURE, URINE (test code = 94133) SPECIMEN NUMBER: [id number] CULTURE, [id number] 00:00:00* Test Item Value Reference Range Interpretation Comme nts CULTURE, URINE (test code = 57589) SPECIMEN NUMBER: [id number] CULTURE, [id number] 00:00:00* Test Item Value Reference Range Interpretation Comme nts CULTURE, URINE (test code = 31798) SPECIMEN NUMBER: [id number] CULTURE, [id number] 00:00:00* Test Item Value Reference Range Interpretation Comme nts CULTURE, URINE (test code = 90335) SPECIMEN NUMBER: [id number] Delfino OrtaCULTURE, [id number] 00:00:00* Test Item Value Reference Range Interpretation Comme nts CULTURE, URINE (test code = 10815) SPECIMEN NUMBER: [id number] Delfino OrtaCULTURE, [id number] 00:00:00* Test Item Value Reference Range Interpretation Comme nts CULTURE, URINE (test code = 32083) SPECIMEN NUMBER: [id number] Delfino OrtaCULTURE, [id number] 00:00:00* Test Item Value Reference Range Interpretation Comme nts CULTURE, URINE (test code = 85240) SPECIMEN NUMBER: [id number] Delfino OrtaCULTURE, [id number] 00:00:00* Test Item Value Reference Range Interpretation Comme nts CULTURE, URINE (test code = 71423) SPECIMEN NUMBER: [id number] Delfino Schumacher AustinVAGINAL PATHOGENS DNA [id number] 15:31:31* Test Item Value Reference Range Interpretation Comme nts DIANNA SPECIES (test code = ) NEGATIVE NEGATIVE G. VAGINALIS (test code = 19729) NEGATIVE NEGATIVE T. VAGINALIS (test code = 14783) NEGATIVE NEGATIVE UNLESS OTHERWISE INDICATED, ALL TESTING PERFORMED [facility] [address] [place] [address] SPANISH INTERPRETER/TRANSLATOR: ALYSSIA FRASER M.D. CLIA NUMBER [id number] [facility] [place]. [id number] VAGINAL PATHOGENS DNA [id number] 00:00:00* Test Item Value Reference Range Interpretation Comme nts DIANNA SPECIES (test code = 80226) NEGATIVE G. VAGINALIS (test code = 48339) NEGATIVE T. VAGINALIS (test code = 84105) NEGATIVE Delfino F AustinVAGINAL PATHOGENS DNA [id number] 00:00:00* Test Item Value Reference Range Interpretation Comme nts DIANNA SPECIES (test code = ) NEGATIVE G. VAGINALIS (test code = 99013) NEGATIVE T. VAGINALIS (test code = 67063) NEGATIVE Delfino F AustinVAGINAL PATHOGENS DNA [id number] 00:00:00* Test Item Value Reference Range Interpretation Comme nts DIANNA SPECIES (test code = 18486) NEGATIVE G. VAGINALIS (test code = 12996) NEGATIVE T. VAGINALIS (test code = 28508) NEGATIVE Delfino F AustinVAGINAL PATHOGENS DNA [id number] 00:00:00* Test Item Value Reference Range Interpretation Comme nts DIANNA SPECIES (test code = 68424) NEGATIVE G. VAGINALIS (test code = 41929) NEGATIVE T. VAGINALIS (test code = 60715) NEGATIVE Delfino F AustinVAGINAL PATHOGENS DNA [id number] 00:00:00* Test Item Value Reference Range Interpretation Comme nts DIANNA SPECIES (test code = 54603) NEGATIVE G. VAGINALIS (test code = 07780) NEGATIVE T. VAGINALIS (test code = 83231) NEGATIVE Delfino F AustinVAGINAL PATHOGENS DNA [id number] 00:00:00* Test Item Value Reference Range Interpretation Comme nts DIANNA SPECIES (test code = 81940) NEGATIVE G. VAGINALIS (test code = 79978) NEGATIVE T. VAGINALIS (test code = 08203) NEGATIVE Delfino F AustinVAGINAL PATHOGENS DNA [id number] 00:00:00* Test Item Value Reference Range Interpretation Comme nts DIANNA SPECIES (test code = 66590) NEGATIVE G. VAGINALIS (test code = 91052) NEGATIVE T. VAGINALIS (test code = 23728) NEGATIVE Delfino F AustinVAGINAL PATHOGENS DNA [id number] 00:00:00* Test Item Value Reference Range Interpretation Comme nts DIANNA SPECIES (test code = 18050) NEGATIVE G. VAGINALIS (test code = 65358) NEGATIVE T. VAGINALIS (test code = 76439) NEGATIVE Delfino F AustinVAGINAL PATHOGENS DNA [id number] 00:00:00* Test Item Value Reference Range Interpretation Comme nts DIANNA SPECIES (test code = 27918) NEGATIVE G. VAGINALIS (test code = 42855) NEGATIVE T. VAGINALIS (test code = 23723) NEGATIVE Delfino F AustinVAGINAL PATHOGENS DNA [id number] 00:00:00* Test Item Value Reference Range Interpretation Comme nts DIANNA SPECIES (test code = 94802) NEGATIVE G. VAGINALIS (test code = 50749) NEGATIVE T. VAGINALIS (test code = 95303) NEGATIVE Delfino F AustinVAGINAL PATHOGENS DNA [id number] 00:00:00* Test Item Value Reference Range Interpretation Comme nts DIANNA SPECIES (test code = 11383) NEGATIVE G. VAGINALIS (test code = 95548) NEGATIVE T. VAGINALIS (test code = 63407) NEGATIVE Delfino F AustinVAGINAL PATHOGENS DNA [id number] 00:00:00* Test Item Value Reference Range Interpretation Comme nts DIANNA SPECIES (test code = 47361) NEGATIVE G. VAGINALIS (test code = 11613) NEGATIVE T. VAGINALIS (test code = 52982) NEGATIVE Delfino F AustinVAGINAL PATHOGENS DNA [id number] 00:00:00* Test Item Value Reference Range Interpretation Comme nts DIANNA SPECIES (test code = 82727) NEGATIVE G. VAGINALIS (test code = 30216) NEGATIVE T. VAGINALIS (test code = 24968) NEGATIVE Delfino F AustinVAGINAL PATHOGENS DNA [id number] 00:00:00* Test Item Value Reference Range Interpretation Comme nts DIANNA SPECIES (test code = 29190) NEGATIVE G. VAGINALIS (test code = 51835) NEGATIVE T. VAGINALIS (test code = 53629) NEGATIVE Delfino F AustinVAGINAL PATHOGENS DNA [id number] 00:00:00* Test Item Value Reference Range Interpretation Comme nts DIANNA SPECIES (test code = 62273) NEGATIVE G. VAGINALIS (test code = 43779) NEGATIVE T. VAGINALIS (test code = 63323) NEGATIVE VAGINAL PATHOGENS DNA [id number] 00:00:00* Test Item Value Reference Range Interpretation Comme nts DIANNA SPECIES (test code = 53587) NEGATIVE G. VAGINALIS (test code = 63591) NEGATIVE T. VAGINALIS (test code = 08280) NEGATIVE VAGINAL PATHOGENS DNA [id number] 00:00:00* Test Item Value Reference Range Interpretation Comme nts DIANNA SPECIES (test code = 09146) NEGATIVE G. VAGINALIS (test code = 38414) NEGATIVE T. VAGINALIS (test code = 59594) NEGATIVE VAGINAL PATHOGENS DNA [id number] 00:00:00* Test Item Value Reference Range Interpretation Comme nts DIANNA SPECIES (test code = 64519) NEGATIVE G. VAGINALIS (test code = 68728) NEGATIVE T. VAGINALIS (test code = 34913) NEGATIVE VAGINAL PATHOGENS DNA [id number] 00:00:00* Test Item Value Reference Range Interpretation Comme nts DIANNA SPECIES (test code = 23288) NEGATIVE G. VAGINALIS (test code = 01800) NEGATIVE T. VAGINALIS (test code = 97490) NEGATIVE Delfino F AustinVAGINAL PATHOGENS DNA [id number] 00:00:00* Test Item Value Reference Range Interpretation Comme nts DIANNA SPECIES (test code = 70380) NEGATIVE G. VAGINALIS (test code = 13700) NEGATIVE T. VAGINALIS (test code = 21891) NEGATIVE Delfino F AustinVAGINAL PATHOGENS DNA [id number] 00:00:00* Test Item Value Reference Range Interpretation Comme nts DIANNA SPECIES (test code = 13727) NEGATIVE G. VAGINALIS (test code = 63016) NEGATIVE T. VAGINALIS (test code = 87433) NEGATIVE Delfino F AustinVAGINAL PATHOGENS DNA [id number] 00:00:00* Test Item Value Reference Range Interpretation Comme nts DIANNA SPECIES (test code = 77904) NEGATIVE G. VAGINALIS (test code = 81080) NEGATIVE T. VAGINALIS (test code = 79308) NEGATIVE Delfino F AustinVAGINAL PATHOGENS DNA [id number] 00:00:00* Test Item Value Reference Range Interpretation Comme nts DIANNA SPECIES (test code = 59520) NEGATIVE G. VAGINALIS (test code = 38376) NEGATIVE T. VAGINALIS (test code = 47830) NEGATIVE Delfino OrtaCULTURE, [id number] 12:43:02SPECIMEN NUMBER: [id number] CULTURE, URINE SPECIMEN NUMBER: [id number] SPECIMEN COMMENT: URINE SOURCE: URINE REPORT STATUS: [...] Comme nts CULTURE, URINE (test code = 95963) SPECIMEN NUMBER: [id number] Delfino Cedeño, [id number] 00:00:00* Test Item Value Reference Range Interpretation Comme nts CULTURE, URINE (test code = 44230) SPECIMEN NUMBER: [id number] Delfino Cedeño [id number] 00:00:00* Test Item Value Reference Range Interpretation Comme nts CULTURE, URINE (test code = 81220) SPECIMEN NUMBER: [id number] Delfino Cedeño, [id number] 00:00:00* Test Item Value Reference Range Interpretation Comme nts CULTURE, URINE (test code = 23569) SPECIMEN NUMBER: [id number] Delfino Cedeño, [id number] 00:00:00* Test Item Value Reference Range Interpretation Comme nts CULTURE, URINE (test code = 05292) SPECIMEN NUMBER: [id number] Delfino Cedeño, [id number] 00:00:00* Test Item Value Reference Range Interpretation Comme nts CULTURE, URINE (test code = 40290) SPECIMEN NUMBER: [id number] Delfino Cedeño, [id number] 00:00:00* Test Item Value Reference Range Interpretation Comme nts CULTURE, URINE (test code = 40787) SPECIMEN NUMBER: [id number] Delfino Cedeño, [id number] 00:00:00* Test Item Value Reference Range Interpretation Comme nts CULTURE, URINE (test code = 07214) SPECIMEN NUMBER: [id number] Delfino Cedeño, [id number] 00:00:00* Test Item Value Reference Range Interpretation Comme nts CULTURE, URINE (test code = 96808) SPECIMEN NUMBER: [id number] Delfino Cedeño, [id number] 00:00:00* Test Item Value Reference Range Interpretation Comme nts CULTURE, URINE (test code = 70453) SPECIMEN NUMBER: [id number] Delfino SarmientoLTNIALL, [id number] 00:00:00* Test Item Value Reference Range Interpretation Comme nts CULTURE, URINE (test code = 49232) SPECIMEN NUMBER: [id number] Delfino Cedeño, [id number] 00:00:00* Test Item Value Reference Range Interpretation Comme nts CULTURE, URINE (test code = 28922) SPECIMEN NUMBER: [id number] Delfino SarmientoLTNIALL, [id number] 00:00:00* Test Item Value Reference Range Interpretation Comme nts CULTURE, URINE (test code = 19916) SPECIMEN NUMBER: [id number] Delfino SarmientoLTNIALL, [id number] 00:00:00* Test Item Value Reference Range Interpretation Comme nts CULTURE, URINE (test code = 94718) SPECIMEN NUMBER: [id number] CULTURE, [id number] 00:00:00* Test Item Value Reference Range Interpretation Comme nts CULTURE, URINE (test code = 05319) SPECIMEN NUMBER: [id number] Delfino SarmientoLTNIALL, [id number] 00:00:00* Test Item Value Reference Range Interpretation Comme nts CULTURE, URINE (test code = 05588) SPECIMEN NUMBER: [id number] CULTURE, [id number] 00:00:00* Test Item Value Reference Range Interpretation Comme nts CULTURE, URINE (test code = 04952) SPECIMEN NUMBER: [id number] CULTURE, [id number] 00:00:00* Test Item Value Reference Range Interpretation Comme nts CULTURE, URINE (test code = 38797) SPECIMEN NUMBER: [id number] CULTURE, [id number] 00:00:00* Test Item Value Reference Range Interpretation Comme nts CULTURE, URINE (test code = 67358) SPECIMEN NUMBER: [id number] Delfino SarmientoLTNIALL, [id number] 00:00:00* Test Item Value Reference Range Interpretation Comme nts CULTURE, URINE (test code = 77370) SPECIMEN NUMBER: [id number] Delfino OrtaCULTURE, [id number] 00:00:00* Test Item Value Reference Range Interpretation Comme nts CULTURE, URINE (test code = 60805) SPECIMEN NUMBER: [id number] Delfino OrtaCULTURE, [id number] 00:00:00* Test Item Value Reference Range Interpretation Comme nts CULTURE, URINE (test code = 44584) SPECIMEN NUMBER: [id number] Delfino OrtaCULTURE, [id number] 00:00:00* Test Item Value Reference Range Interpretation Comme nts CULTURE, URINE (test code = 27679) SPECIMEN NUMBER: [id number] Delfino Schumacher AustinURINALYSIS WITH [id number] 07:51:12* Test Item Value Reference Range Interpretation [...] code = 1510) 0.2 MG/DL See_Comment [Automated messa ge] The system which [...] 0-5 A EPITHELIAL CELLS (test code = 11503) 0-5 /HPF 0-10 BACTERIA (test code = 1515) 3+ NONE SEEN A CASTS, HYALINE (test code = 1517) TRACE NONE-TRACE UNLESS OTHERWISE INDICATED, ALL TESTING PER[facility] [address] [place] [id number] SPANISH INTERPRETER/TRANSLATOR: ALYSSIA FRASER M.D. CLIA NUMBER [id number] [place]. [id number] URINALYSIS WITH [id number] 00:00:00* Test Item Value Reference Range Interpretation [...] >50 /HPF EPITHELIAL CELLS (test code = 13216) 0-5 /HPF BACTERIA (test code = 1515) 3+ CASTS, HYALINE (test code = 1517) TRACE Delfino Schumacher AustinURINALYSIS WITH [id number] 00:00:00* Test Item Value Reference Range Interpretation [...] >50 /HPF EPITHELIAL CELLS (test code = 84909) 0-5 /HPF BACTERIA (test code = 1515) 3+ CASTS, HYALINE (test code = 1517) TRACE Delfino F AustinURINALYSIS WITH [id number] 00:00:00* Test Item Value Reference Range Interpretation [...] >50 /HPF EPITHELIAL CELLS (test code = 83026) 0-5 /HPF BACTERIA (test code = 1515) 3+ CASTS, HYALINE (test code = 1517) TONY Schumacher AustinURINALYSIS WITH [id number] 00:00:00* Test Item Value Reference Range Interpretation [...] >50 /HPF EPITHELIAL CELLS (test code = 60788) 0-5 /HPF BACTERIA (test code = 1515) 3+ CASTS, HYALINE (test code = 1517) TONY Schumacher AustinURINALYSIS WITH [id number] 00:00:00* Test Item Value Reference Range Interpretation [...] >50 /HPF EPITHELIAL CELLS (test code = 90158) 0-5 /HPF BACTERIA (test code = 1515) 3+ CASTS, HYALINE (test code = 1517) TONY Schumacher AustinURINALYSIS WITH [id number] 00:00:00* Test Item Value Reference Range Interpretation [...] >50 /HPF EPITHELIAL CELLS (test code = 02756) 0-5 /HPF BACTERIA (test code = 1515) 3+ CASTS, HYALINE (test code = 1517) TONY Schumacher AustinURINALYSIS WITH [id number] 00:00:00* Test Item Value Reference Range Interpretation [...] >50 /HPF EPITHELIAL CELLS (test code = 58441) 0-5 /HPF BACTERIA (test code = 1515) 3+ CASTS, HYALINE (test code = 1517) TONY Schumacher AustinURINALYSIS WITH [id number] 00:00:00* Test Item Value Reference Range Interpretation [...] >50 /HPF EPITHELIAL CELLS (test code = 55566) 0-5 /HPF BACTERIA (test code = 1515) 3+ CASTS, HYALINE (test code = 1517) TONY OrtaURINALYSIS WITH [id number] 00:00:00* Test Item Value Reference Range Interpretation [...] >50 /HPF EPITHELIAL CELLS (test code = 88253) 0-5 /HPF BACTERIA (test code = 1515) 3+ CASTS, HYALINE (test code = 1517) TONY Schumacher AustinURINALYSIS WITH [id number] 00:00:00* Test Item Value Reference Range Interpretation [...] >50 /HPF EPITHELIAL CELLS (test code = 15690) 0-5 /HPF BACTERIA (test code = 1515) 3+ CASTS, HYALINE (test code = 1517) TONY Schumacher AustinURINALYSIS WITH [id number] 00:00:00* Test Item Value Reference Range Interpretation [...] >50 /HPF EPITHELIAL CELLS (test code = 96111) 0-5 /HPF BACTERIA (test code = 1515) 3+ CASTS, HYALINE (test code = 1517) TONY Schumacher AustinURINALYSIS WITH [id number] 00:00:00* Test Item Value Reference Range Interpretation [...] >50 /HPF EPITHELIAL CELLS (test code = 51196) 0-5 /HPF BACTERIA (test code = 1515) 3+ CASTS, HYALINE (test code = 1517) TONY Schumacher AustinURINALYSIS WITH [id number] 00:00:00* Test Item Value Reference Range Interpretation [...] >50 /HPF EPITHELIAL CELLS (test code = 53772) 0-5 /HPF BACTERIA (test code = 1515) 3+ CASTS, HYALINE (test code = 1517) TONY Schumacher AustinURINALYSIS WITH [id number] 00:00:00* Test Item Value Reference Range Interpretation [...] >50 /HPF EPITHELIAL CELLS (test code = 82652) 0-5 /HPF BACTERIA (test code = 1515) 3+ CASTS, HYALINE (test code = 1517) TRACE Delfino Schumacher AustinURINALYSIS WITH [id number] 00:00:00* Test Item Value Reference Range Interpretation [...] >50 /HPF EPITHELIAL CELLS (test code = 37243) 0-5 /HPF BACTERIA (test code = 1515) 3+ CASTS, HYALINE (test code = 1517) TRACE URINALYSIS WITH [id number] 00:00:00* Test Item Value Reference Range Interpretation [...] >50 /HPF EPITHELIAL CELLS (test code = 97682) 0-5 /HPF BACTERIA (test code = 1515) 3+ CASTS, HYALINE (test code = 1517) TRACE URINALYSIS WITH [id number] 00:00:00* Test Item Value Reference Range Interpretation [...] >50 /HPF EPITHELIAL CELLS (test code = 68629) 0-5 /HPF BACTERIA (test code = 1515) 3+ CASTS, HYALINE (test code = 1517) TRACE URINALYSIS WITH [id number] 00:00:00* Test Item Value Reference Range Interpretation [...] >50 /HPF EPITHELIAL CELLS (test code = 85924) 0-5 /HPF BACTERIA (test code = 1515) 3+ CASTS, HYALINE (test code = 1517) TRACE URINALYSIS WITH [id number] 00:00:00* Test Item Value Reference Range Interpretation [...] >50 /HPF EPITHELIAL CELLS (test code = 97006) 0-5 /HPF BACTERIA (test code = 1515) 3+ CASTS, HYALINE (test code = 1517) TRACE Delfino F AustinURINALYSIS WITH [id number] 00:00:00* Test Item Value Reference Range Interpretation [...] >50 /HPF EPITHELIAL CELLS (test code = 69481) 0-5 /HPF BACTERIA (test code = 1515) 3+ CASTS, HYALINE (test code = 1517) TRACE Delfino F AustinURINALYSIS WITH [id number] 00:00:00* Test Item Value Reference Range Interpretation [...] >50 /HPF EPITHELIAL CELLS (test code = 64749) 0-5 /HPF BACTERIA (test code = 1515) 3+ CASTS, HYALINE (test code = 1517) TONY Schumacher AustinURINALYSIS WITH [id number] 00:00:00* Test Item Value Reference Range Interpretation [...] >50 /HPF EPITHELIAL CELLS (test code = 58113) 0-5 /HPF BACTERIA (test code = 1515) 3+ CASTS, HYALINE (test code = 1517) TONY Schumacher AustinURINALYSIS WITH [id number] 00:00:00* Test Item Value Reference Range Interpretation [...] >50 /HPF EPITHELIAL CELLS (test code = 95437) 0-5 /HPF BACTERIA (test code = 1515) 3+ CASTS, HYALINE (test code = 1517) TRACE Delfino Schumacher AustinLIPID [id number] 00:00:00* Test Item Value Reference Range Interpretation Comme nts CHOLESTEROL (test code = 2210) 174 MG/DL TRIGLYCERIDES (test code = 2232) 63 MG/DL HDL CHOLESTEROL (test code = 2220) 87 MG/DL CALC LDL CHOL (test code = 2237) 73 MG/DL RISK RATIO LDL/HDL (test cod e = 2238) 0.84 RATIO Delfino OrtaCOMPREHENSIVE METABOLIC [id number] 00:00:00* Test Item Value Reference Range Interpretation Comme nts GLUCOSE (test code = 2217) 80 MG/DL BUN (test code = 2208) 18 MG/DL CREATININE (test code = 2214) 1.06 MG/DL eGFR AMER. (test cod e = 43517) 67 ML/MIN/1.73 eGFR NON- AMER. (test code = 08146) 58 ML/MIN/1.73 CALC BUN/CREAT (test code = [...] = 2219) 54 U/L Delfino OrtaCBC W/AUTO [id number] 00:00:00* Test Item Value Reference Range Interpretation [...] ABS NUCLEATED RBCS (test cod e = 75001) 0.00 K/UL COMMENTS (test code = 1016) (NOTE) Delfino OrtaCOMPREHENSIVE METABOLIC [id number] 00:00:00* Test Item Value Reference Range Interpretation Comme nts GLUCOSE (test code = 2217) 80 MG/DL BUN (test code = 2208) 18 MG/DL CREATININE (test code = 2214) 1.06 MG/DL eGFR AMER. (test cod e = 46725) 67 ML/MIN/1.73 eGFR NON- AMER. (test code = 85775) 58 ML/MIN/1.73 CALC BUN/CREAT (test code = [...] code = 2219) 54 U/L Delfino Schumacher [place] [id number] 00:00:00* Test Item Value Reference Range Interpretation Comme nts CHOLESTEROL (test code = 2210) 174 MG/DL TRIGLYCERIDES (test code = 2232) 63 MG/DL HDL CHOLESTEROL (test code = 2220) 87 MG/DL CALC LDL CHOL (test code = 2237) 73 MG/DL RISK RATIO LDL/HDL (test cod e = 2238) 0.84 RATIO Delfino Schumacher YouCOMPREHENSIVE METABOLIC [id number] 00:00:00* Test Item Value Reference Range Interpretation Comme nts GLUCOSE (test code = 2217) 80 MG/DL BUN (test code = 2208) 18 MG/DL CREATININE (test code = 2214) 1.06 MG/DL eGFR AMER. (test cod e = 78774) 67 ML/MIN/1.73 eGFR NON- AMER. (test code = 01101) 58 ML/MIN/1.73 CALC BUN/CREAT (test code = [...] = 2219) 54 U/L Delfino OrtaCBC W/AUTO [id number] 00:00:00* Test Item Value Reference Range Interpretation [...] ABS NUCLEATED RBCS (test cod e = 12352) 0.00 K/UL COMMENTS (test code = 1016) (NOTE) Delfino OrtaLIPID [id number] 00:00:00* Test Item Value Reference Range Interpretation Comme nts CHOLESTEROL (test code = 2210) 174 MG/DL TRIGLYCERIDES (test code = 2232) 63 MG/DL HDL CHOLESTEROL (test code = 2220) 87 MG/DL CALC LDL CHOL (test code = 2237) 73 MG/DL RISK RATIO LDL/HDL (test cod e = 2238) 0.84 RATIO Delfino Schumacher YouCOMPREHENSIVE METABOLIC [id number] 00:00:00* Test Item Value Reference Range Interpretation Comme nts GLUCOSE (test code = 2217) 80 MG/DL BUN (test code = 2208) 18 MG/DL CREATININE (test code = 2214) 1.06 MG/DL eGFR AMER. (test cod e = 11300) 67 ML/MIN/1.73 eGFR NON- AMER. (test code = 98740) 58 ML/MIN/1.73 CALC BUN/CREAT (test code = [...] 2219) 54 U/L Delfino Schumacher YouCBC W/AUTO [id number] 00:00:00* Test Item Value Reference Range Interpretation [...] ABS NUCLEATED RBCS (test cod e = 99855) 0.00 K/UL COMMENTS (test code = 1016) (NOTE) Delfino Schumacher AustinLIPID [id number] 00:00:00* Test Item Value Reference Range Interpretation Comme nts CHOLESTEROL (test code = 2210) 174 MG/DL TRIGLYCERIDES (test code = 2232) 63 MG/DL HDL CHOLESTEROL (test code = 2220) 87 MG/DL CALC LDL CHOL (test code = 2237) 73 MG/DL RISK RATIO LDL/HDL (test cod e = 2238) 0.84 RATIO Delfino OrtaCOMPREHENSIVE METABOLIC [id number] 00:00:00* Test Item Value Reference Range Interpretation Comme nts GLUCOSE (test code = 2217) 80 MG/DL BUN (test code = 2208) 18 MG/DL CREATININE (test code = 2214) 1.06 MG/DL eGFR AMER. (test cod e = 42824) 67 ML/MIN/1.73 eGFR NON- AMER. (test code = 54058) 58 ML/MIN/1.73 CALC BUN/CREAT (test code = [...] = 2219) 54 U/L Delfino OrtaCBC W/AUTO [id number] 00:00:00* Test Item Value Reference Range Interpretation [...] ABS NUCLEATED RBCS (test cod e = 53285) 0.00 K/UL COMMENTS (test code = 1016) (NOTE) Delfino Endy YouLIPID [id number] 00:00:00* Test Item Value Reference Range Interpretation Comme nts CHOLESTEROL (test code = 2210) 174 MG/DL TRIGLYCERIDES (test code = 2232) 63 MG/DL HDL CHOLESTEROL (test code = 2220) 87 MG/DL CALC LDL CHOL (test code = 2237) 73 MG/DL RISK RATIO LDL/HDL (test cod e = 2238) 0.84 RATIO Delfino OrtaCOMPREHENSIVE METABOLIC [id number] 00:00:00* Test Item Value Reference Range Interpretation Comme nts GLUCOSE (test code = 2217) 80 MG/DL BUN (test code = 2208) 18 MG/DL CREATININE (test code = 2214) 1.06 MG/DL eGFR AMER. (test cod e = 03643) 67 ML/MIN/1.73 eGFR NON- AMER. (test code = 00495) 58 ML/MIN/1.73 CALC BUN/CREAT (test code = [...] = 2219) 54 U/L Delfino OrtaCBC W/AUTO [id number] 00:00:00* Test Item Value Reference Range Interpretation [...] ABS NUCLEATED RBCS (test cod e = 39346) 0.00 K/UL COMMENTS (test code = 1016) (NOTE) Delfino Endy AustinLIPID [id number] 00:00:00* Test Item Value Reference Range Interpretation Comme nts CHOLESTEROL (test code = 2210) 174 MG/DL TRIGLYCERIDES (test code = 2232) 63 MG/DL HDL CHOLESTEROL (test code = 2220) 87 MG/DL CALC LDL CHOL (test code = 2237) 73 MG/DL RISK RATIO LDL/HDL (test cod e = 2238) 0.84 RATIO Delfino OrtaCOMPREHENSIVE METABOLIC [id number] 00:00:00* Test Item Value Reference Range Interpretation Comme nts GLUCOSE (test code = 2217) 80 MG/DL BUN (test code = 2208) 18 MG/DL CREATININE (test code = 2214) 1.06 MG/DL eGFR AMER. (test cod e = 65807) 67 ML/MIN/1.73 eGFR NON- AMER. (test code = 52889) 58 ML/MIN/1.73 CALC BUN/CREAT (test code = [...] code = 2219) 54 U/L [facility] [id number] 00:00:00* Test Item Value Reference Range Interpretation [...] ABS NUCLEATED RBCS (test cod e = 44286) 0.00 K/UL COMMENTS (test code = 1016) (NOTE) Delfino OrtaLIPID [id number] 00:00:00* Test Item Value Reference Range Interpretation Comme nts CHOLESTEROL (test code = 2210) 174 MG/DL TRIGLYCERIDES (test code = 2232) 63 MG/DL HDL CHOLESTEROL (test code = 2220) 87 MG/DL CALC LDL CHOL (test code = 2237) 73 MG/DL RISK RATIO LDL/HDL (test cod e = 2238) 0.84 RATIO Delfino OrtaCOMPREHENSIVE METABOLIC [id number] 00:00:00* Test Item Value Reference Range Interpretation Comme nts GLUCOSE (test code = 2217) 80 MG/DL BUN (test code = 2208) 18 MG/DL CREATININE (test code = 2214) 1.06 MG/DL eGFR AMER. (test cod e = 22926) 67 ML/MIN/1.73 eGFR NON- AMER. (test code = 50676) 58 ML/MIN/1.73 CALC BUN/CREAT (test code = [...] = 2219) 54 U/L Delfino OrtaCBC W/AUTO [id number] 00:00:00* Test Item Value Reference Range Interpretation [...] ABS NUCLEATED RBCS (test cod e = 33062) 0.00 K/UL COMMENTS (test code = 1016) (NOTE) Delfino Endy AustinLIPID [id number] 00:00:00* Test Item Value Reference Range Interpretation Comme nts CHOLESTEROL (test code = 2210) 174 MG/DL TRIGLYCERIDES (test code = 2232) 63 MG/DL HDL CHOLESTEROL (test code = 2220) 87 MG/DL CALC LDL CHOL (test code = 2237) 73 MG/DL RISK RATIO LDL/HDL (test cod e = 2238) 0.84 RATIO Delfino Schumacher AustinCOMPREHENSIVE METABOLIC [id number] 00:00:00* Test Item Value Reference Range Interpretation Comme nts GLUCOSE (test code = 2217) 80 MG/DL BUN (test code = 2208) 18 MG/DL CREATININE (test code = 2214) 1.06 MG/DL eGFR AMER. (test cod e = 01951) 67 ML/MIN/1.73 eGFR NON- AMER. (test code = 68119) 58 ML/MIN/1.73 CALC BUN/CREAT (test code = [...] code = 2219) 54 U/L Delfino Schumacher [facility] W/AUTO [id number] 00:00:00* Test Item Value Reference Range Interpretation [...] ABS NUCLEATED RBCS (test cod e = 31549) 0.00 K/UL COMMENTS (test code = 1016) (NOTE) Delfino OrtaLIPID [id number] 00:00:00* Test Item Value Reference Range Interpretation Comme nts CHOLESTEROL (test code = 2210) 174 MG/DL TRIGLYCERIDES (test code = 2232) 63 MG/DL HDL CHOLESTEROL (test code = 2220) 87 MG/DL CALC LDL CHOL (test code = 2237) 73 MG/DL RISK RATIO LDL/HDL (test cod e = 2238) 0.84 RATIO Delfino OrtaCOMPREHENSIVE METABOLIC [id number] 00:00:00* Test Item Value Reference Range Interpretation Comme nts GLUCOSE (test code = 2217) 80 MG/DL BUN (test code = 2208) 18 MG/DL CREATININE (test code = 2214) 1.06 MG/DL eGFR AMER. (test cod e = 38329) 67 ML/MIN/1.73 eGFR NON- AMER. (test code = 89091) 58 ML/MIN/1.73 CALC BUN/CREAT (test code = [...] = 2219) 54 U/L Delfino OrtaCBC W/AUTO [id number] 00:00:00* Test Item Value Reference Range Interpretation [...] ABS NUCLEATED RBCS (test cod e = 98463) 0.00 K/UL COMMENTS (test code = 1016) (NOTE) Delfino Schumacher AustinLIPID [id number] 00:00:00* Test Item Value Reference Range Interpretation Comme nts CHOLESTEROL (test code = 2210) 174 MG/DL TRIGLYCERIDES (test code = 2232) 63 MG/DL HDL CHOLESTEROL (test code = 2220) 87 MG/DL CALC LDL CHOL (test code = 2237) 73 MG/DL RISK RATIO LDL/HDL (test cod e = 2238) 0.84 RATIO Delfino OrtaCOMPREHENSIVE METABOLIC [id number] 00:00:00* Test Item Value Reference Range Interpretation Comme nts GLUCOSE (test code = 2217) 80 MG/DL BUN (test code = 2208) 18 MG/DL CREATININE (test code = 2214) 1.06 MG/DL eGFR AMER. (test cod e = 52804) 67 ML/MIN/1.73 eGFR NON- AMER. (test code = 05631) 58 ML/MIN/1.73 CALC BUN/CREAT (test code = [...] (test code = 2219) 54 U/L [facility] [id number] 00:00:00* Test Item Value Reference Range Interpretation [...] ABS NUCLEATED RBCS (test cod e = 85381) 0.00 K/UL COMMENTS (test code = 1016) (NOTE) Delfino OrtaLIPID [id number] 00:00:00* Test Item Value Reference Range Interpretation Comme nts CHOLESTEROL (test code = 2210) 174 MG/DL TRIGLYCERIDES (test code = 2232) 63 MG/DL HDL CHOLESTEROL (test code = 2220) 87 MG/DL CALC LDL CHOL (test code = 2237) 73 MG/DL RISK RATIO LDL/HDL (test cod e = 2238) 0.84 RATIO Delfino OrtaCOMPREHENSIVE METABOLIC [id number] 00:00:00* Test Item Value Reference Range Interpretation Comme nts GLUCOSE (test code = 2217) 80 MG/DL BUN (test code = 2208) 18 MG/DL CREATININE (test code = 2214) 1.06 MG/DL eGFR AMER. (test cod e = 73490) 67 ML/MIN/1.73 eGFR NON- AMER. (test code = 20640) 58 ML/MIN/1.73 CALC BUN/CREAT (test code = [...] 2219) 54 U/L Delfino Schumacher YouCBC W/AUTO [id number] 00:00:00* Test Item Value Reference Range Interpretation [...] ABS NUCLEATED RBCS (test cod e = 64976) 0.00 K/UL COMMENTS (test code = 1016) (NOTE) Delfino Endy AustinLIPID [id number] 00:00:00* Test Item Value Reference Range Interpretation Comme nts CHOLESTEROL (test code = 2210) 174 MG/DL TRIGLYCERIDES (test code = 2232) 63 MG/DL HDL CHOLESTEROL (test code = 2220) 87 MG/DL CALC LDL CHOL (test code = 2237) 73 MG/DL RISK RATIO LDL/HDL (test cod e = 2238) 0.84 RATIO Delfino OrtaCOMPREHENSIVE METABOLIC [id number] 00:00:00* Test Item Value Reference Range Interpretation Comme nts GLUCOSE (test code = 2217) 80 MG/DL BUN (test code = 2208) 18 MG/DL CREATININE (test code = 2214) 1.06 MG/DL eGFR AMER. (test cod e = 72102) 67 ML/MIN/1.73 eGFR NON- AMER. (test code = 76241) 58 ML/MIN/1.73 CALC BUN/CREAT (test code = [...] code = 2219) 54 U/L Delfino F [facility] W/AUTO [id number] 00:00:00* Test Item Value Reference Range Interpretation [...] ABS NUCLEATED RBCS (test cod e = 80495) 0.00 K/UL COMMENTS (test code = 1016) (NOTE) Delfino Schumacher AustinLIPID [id number] 00:00:00* Test Item Value Reference Range Interpretation Comme nts CHOLESTEROL (test code = 2210) 174 MG/DL TRIGLYCERIDES (test code = 2232) 63 MG/DL HDL CHOLESTEROL (test code = 2220) 87 MG/DL CALC LDL CHOL (test code = 2237) 73 MG/DL RISK RATIO LDL/HDL (test cod e = 2238) 0.84 RATIO Delfino OrtaCOMPREHENSIVE METABOLIC [id number] 00:00:00* Test Item Value Reference Range Interpretation Comme nts GLUCOSE (test code = 2217) 80 MG/DL BUN (test code = 2208) 18 MG/DL CREATININE (test code = 2214) 1.06 MG/DL eGFR AMER. (test cod e = 27962) 67 ML/MIN/1.73 eGFR NON- AMER. (test code = 32772) 58 ML/MIN/1.73 CALC BUN/CREAT (test code = [...] = 2219) 54 U/L Delfino OrtaCBC W/AUTO [id number] 00:00:00* Test Item Value Reference Range Interpretation [...] ABS NUCLEATED RBCS (test cod e = 51910) 0.00 K/UL COMMENTS (test code = 1016) (NOTE) Delfino OrtaCBC W/AUTO [id number] 00:00:00* Test Item Value Reference Range Interpretation [...] ABS NUCLEATED RBCS (test cod e = 05741) 0.00 K/UL COMMENTS (test code = 1016) (NOTE) LIPID [id number] 00:00:00* Test Item Value Reference Range Interpretation Comme nts CHOLESTEROL (test code = 2210) 174 MG/DL TRIGLYCERIDES (test code = 2232) 63 MG/DL HDL CHOLESTEROL (test code = 2220) 87 MG/DL CALC LDL CHOL (test code = 2237) 73 MG/DL RISK RATIO LDL/HDL (test cod e = 2238) 0.84 RATIO Delfino F YouCOMPREHENSIVE METABOLIC [id number] 00:00:00* Test Item Value Reference Range Interpretation Comme nts GLUCOSE (test code = 2217) 80 MG/DL BUN (test code = 2208) 18 MG/DL CREATININE (test code = 2214) 1.06 MG/DL eGFR AMER. (test cod e = 68835) 67 ML/MIN/1.73 eGFR NON- AMER. (test code = 03417) 58 ML/MIN/1.73 CALC BUN/CREAT (test code = [...] = 2219) 54 U/L Delfino Schumacher [place]LIP[place] [id number] 00:00:00* Test Item Value Reference Range Interpretation Comme nts CHOLESTEROL (test code = 2210) 174 MG/DL TRIGLYCERIDES (test code = 2232) 63 MG/DL HDL CHOLESTEROL (test code = 2220) 87 MG/DL CALC LDL CHOL (test code = 2237) 73 MG/DL RISK RATIO LDL/HDL (test cod e = 2238) 0.84 RATIO CBC W/AUTO [id number] 00:00:00* Test Item Value Reference Range Interpretation [...] ABS NUCLEATED RBCS (test cod e = 08226) 0.00 K/UL COMMENTS (test code = 1016) (NOTE) Delfino OrtaCOMPREHENSIVE METABOLIC [id number] 00:00:00* Test Item Value Reference Range Interpretation Comme nts GLUCOSE (test code = 2217) 80 MG/DL BUN (test code = 2208) 18 MG/DL CREATININE (test code = 2214) 1.06 MG/DL eGFR AMER. (test cod e = 93408) 67 ML/MIN/1.73 eGFR NON- AMER. (test code = 61725) 58 ML/MIN/1.73 CALC BUN/CREAT (test code = [...] (test code = 2219) 54 U/L LIPID [id number] 00:00:00* Test Item Value Reference Range Interpretation Comme nts CHOLESTEROL (test code = 2210) 174 MG/DL TRIGLYCERIDES (test code = 2232) 63 MG/DL HDL CHOLESTEROL (test code = 2220) 87 MG/DL CALC LDL CHOL (test code = 2237) 73 MG/DL RISK RATIO LDL/HDL (test cod e = 2238) 0.84 RATIO Delfino OrtaCBC W/AUTO [id number] 00:00:00* Test Item Value Reference Range Interpretation [...] ABS NUCLEATED RBCS (test cod e = 31180) 0.00 K/UL COMMENTS (test code = 1016) (NOTE) LIPID [id number] 00:00:00* Test Item Value Reference Range Interpretation Comme nts CHOLESTEROL (test code = 2210) 174 MG/DL TRIGLYCERIDES (test code = 2232) 63 MG/DL HDL CHOLESTEROL (test code = 2220) 87 MG/DL CALC LDL CHOL (test code = 2237) 73 MG/DL RISK RATIO LDL/HDL (test cod e = 2238) 0.84 RATIO COMPREHENSIVE METABOLIC [id number] 00:00:00* Test Item Value Reference Range Interpretation Comme nts GLUCOSE (test code = 2217) 80 MG/DL BUN (test code = 2208) 18 MG/DL CREATININE (test code = 2214) 1.06 MG/DL eGFR AMER. (test cod e = 58595) 67 ML/MIN/1.73 eGFR NON- AMER. (test code = 44894) 58 ML/MIN/1.73 CALC BUN/CREAT (test code = [...] code = 2219) 54 U/L CBC W/AUTO [id number] 00:00:00* Test Item Value Reference Range Interpretation [...] ABS NUCLEATED RBCS (test cod e = 22290) 0.00 K/UL COMMENTS (test code = 1016) (NOTE) LIPID [id number] 00:00:00* Test Item Value Reference Range Interpretation Comme nts CHOLESTEROL (test code = 2210) 174 MG/DL TRIGLYCERIDES (test code = 2232) 63 MG/DL HDL CHOLESTEROL (test code = 2220) 87 MG/DL CALC LDL CHOL (test code = 2237) 73 MG/DL RISK RATIO LDL/HDL (test cod e = 2238) 0.84 RATIO COMPREHENSIVE METABOLIC [id number] 00:00:00* Test Item Value Reference Range Interpretation Comme nts GLUCOSE (test code = 2217) 80 MG/DL BUN (test code = 2208) 18 MG/DL CREATININE (test code = 2214) 1.06 MG/DL eGFR AMER. (test cod e = 73428) 67 ML/MIN/1.73 eGFR NON- AMER. (test code = 72589) 58 ML/MIN/1.73 CALC BUN/CREAT (test code = [...] code = 2219) 54 U/L CBC W/AUTO [id number] 00:00:00* Test Item Value Reference Range Interpretation [...] ABS NUCLEATED RBCS (test cod e = 66247) 0.00 K/UL COMMENTS (test code = 1016) (NOTE) LIPID [id number] 00:00:00* Test Item Value Reference Range Interpretation Comme nts CHOLESTEROL (test code = 2210) 174 MG/DL TRIGLYCERIDES (test code = 2232) 63 MG/DL HDL CHOLESTEROL (test code = 2220) 87 MG/DL CALC LDL CHOL (test code = 2237) 73 MG/DL RISK RATIO LDL/HDL (test cod e = 2238) 0.84 RATIO COMPREHENSIVE METABOLIC [id number] 00:00:00* Test Item Value Reference Range Interpretation Comme nts GLUCOSE (test code = 2217) 80 MG/DL BUN (test code = 2208) 18 MG/DL CREATININE (test code = 2214) 1.06 MG/DL eGFR AMER. (test cod e = 12714) 67 ML/MIN/1.73 eGFR NON- AMER. (test code = 59033) 58 ML/MIN/1.73 CALC BUN/CREAT (test code = [...] code = 2219) 54 U/L COMPREHENSIVE METABOLIC [id number] 00:00:00* Test Item Value Reference Range Interpretation Comme nts GLUCOSE (test code = 2217) 80 MG/DL BUN (test code = 2208) 18 MG/DL CREATININE (test code = 2214) 1.06 MG/DL eGFR AMER. (test cod e = 12589) 67 ML/MIN/1.73 eGFR NON- AMER. (test code = 32253) 58 ML/MIN/1.73 CALC BUN/CREAT (test code = [...] (test code = 2219) 54 U[facility] [id number] 00:00:00* Test Item Value Reference Range Interpretation [...] ABS NUCLEATED RBCS (test cod e = 25207) 0.00 K/UL COMMENTS (test code = 1016) (NOTE) [facility] [id number] 00:00:00* Test Item Value Reference Range Interpretation [...] ABS NUCLEATED RBCS (test cod e = 34275) 0.00 K/UL COMMENTS (test code = 1016) (NOTE) Delfino Endy AustinLIPID [id number] 00:00:00* Test Item Value Reference Range Interpretation Comme nts CHOLESTEROL (test code = 2210) 174 MG/DL TRIGLYCERIDES (test code = 2232) 63 MG/DL HDL CHOLESTEROL (test code = 2220) 87 MG/DL CALC LDL CHOL (test code = 2237) 73 MG/DL RISK RATIO LDL/HDL (test cod e = 2238) 0.84 RATIO Delfino Schumacher YouCOMPREHENSIVE METABOLIC [id number] 00:00:00* Test Item Value Reference Range Interpretation Comme nts GLUCOSE (test code = 2217) 80 MG/DL BUN (test code = 2208) 18 MG/DL CREATININE (test code = 2214) 1.06 MG/DL eGFR AMER. (test cod e = 52947) 67 ML/MIN/1.73 eGFR NON- AMER. (test code = 43785) 58 ML/MIN/1.73 CALC BUN/CREAT (test code = [...] code = 2219) 54 U/L Delfino Schumacher [facility] W/AUTO [id number] 00:00:00* Test Item Value Reference Range Interpretation [...] ABS NUCLEATED RBCS (test cod e = 32647) 0.00 K/UL COMMENTS (test code = 1016) (NOTE) Delfino OrtaLIPID [id number] 00:00:00* Test Item Value Reference Range Interpretation Comme nts CHOLESTEROL (test code = 2210) 174 MG/DL TRIGLYCERIDES (test code = 2232) 63 MG/DL HDL CHOLESTEROL (test code = 2220) 87 MG/DL CALC LDL CHOL (test code = 2237) 73 MG/DL RISK RATIO LDL/HDL (test cod e = 2238) 0.84 RATIO Delfino OrtaCOMPREHENSIVE METABOLIC [id number] 00:00:00* Test Item Value Reference Range Interpretation Comme nts GLUCOSE (test code = 2217) 80 MG/DL BUN (test code = 2208) 18 MG/DL CREATININE (test code = 2214) 1.06 MG/DL eGFR AMER. (test cod e = 90055) 67 ML/MIN/1.73 eGFR NON- AMER. (test code = 30615) 58 ML/MIN/1.73 CALC BUN/CREAT (test code = [...] = 2219) 54 U/L Delfino OrtaCBC W/AUTO [id number] 00:00:00* Test Item Value Reference Range Interpretation [...] ABS NUCLEATED RBCS (test cod e = 01028) 0.00 K/UL COMMENTS (test code = 1016) (NOTE) Delfino Schumacher AustinLIPID [id number] 00:00:00* Test Item Value Reference Range Interpretation Comme nts CHOLESTEROL (test code = 2210) 174 MG/DL TRIGLYCERIDES (test code = 2232) 63 MG/DL HDL CHOLESTEROL (test code = 2220) 87 MG/DL CALC LDL CHOL (test code = 2237) 73 MG/DL RISK RATIO LDL/HDL (test cod e = 2238) 0.84 RATIO Delfino OrtaLIPID [id number] 00:00:00* Test Item Value Reference Range Interpretation Comme nts CHOLESTEROL (test code = 2210) 174 MG/DL TRIGLYCERIDES (test code = 2232) 63 MG/DL HDL CHOLESTEROL (test code = 2220) 87 MG/DL CALC LDL CHOL (test code = 2237) 73 MG/DL RISK RATIO LDL/HDL (test cod e = 2238) 0.84 RATIO Delfino OrtaCOMPREHENSIVE METABOLIC [id number] 00:00:00* Test Item Value Reference Range Interpretation Comme nts GLUCOSE (test code = 2217) 80 MG/DL BUN (test code = 2208) 18 MG/DL CREATININE (test code = 2214) 1.06 MG/DL eGFR AMER. (test cod e = 71031) 67 ML/MIN/1.73 eGFR NON- AMER. (test code = 63590) 58 ML/MIN/1.73 CALC BUN/CREAT (test code = [...] = 2219) 54 U/L Delfino OrtaCBC W/AUTO [id number] 00:00:00* Test Item Value Reference Range Interpretation [...] ABS NUCLEATED RBCS (test cod e = 87550) 0.00 K/UL COMMENTS (test code = 1016) (NOTE) Delfino Schumacher VgolmrLRTJ-[id number]-9 (COVID-19) by RT-PCR (HIGH RISK)2020-01-21 00:00:00* Test Item Value Reference Range Interpretation Comme nts SARS-CoV-2 INTERPRETATION (t est code = 55320) NEGATIVE SOURCE (test code = 69256) NOT SPECIFIED Delfino Schumacher JqfpzhYGVD-YnS-0 (COVID-19) by RT-PCR (HIGH RISK)2020-01-21 00:00:00* Test Item Value Reference Range Interpretation Comme nts SARS-CoV-2 INTERPRETATION (t est code = 47478) NEGATIVE SOURCE (test code = 71580) NOT SPECIFIED Delfino F QxnljvEQUE-MlR-0 (COVID-19) by RT-PCR (HIGH RISK)2020-01-21 00:00:00* Test Item Value Reference Range Interpretation Comme nts SARS-CoV-2 INTERPRETATION (t est code = 32725) NEGATIVE SOURCE (test code = 06495) NOT SPECIFIED Delfino F EzbonnZATY-HnV-0 (COVID-19) by RT-PCR (HIGH RISK)2020-01-21 00:00:00* Test Item Value Reference Range Interpretation Comme nts SARS-CoV-2 INTERPRETATION (t est code = 74006) NEGATIVE SOURCE (test code = 63975) NOT SPECIFIED Delfino F OegzxuYTZA-HcR-5 (COVID-19) by RT-PCR (HIGH RISK)2020-01-21 00:00:00* Test Item Value Reference Range Interpretation Comme nts SARS-CoV-2 INTERPRETATION (t est code = 20606) NEGATIVE SOURCE (test code = 22096) NOT SPECIFIED Delfino Schumacher JyynkvRSKL-MwX-4 (COVID-19) by RT-PCR (HIGH RISK)2020-01-21 00:00:00* Test Item Value Reference Range Interpretation Comme nts SARS-CoV-2 INTERPRETATION (t est code = 22202) NEGATIVE SOURCE (test code = 39861) NOT SPECIFIED Delfino Schumacher ItzdpnZXPG-CfO-8 (COVID-19) by RT-PCR (HIGH RISK)2020-01-21 00:00:00* Test Item Value Reference Range Interpretation Comme nts SARS-CoV-2 INTERPRETATION (t est code = 15509) NEGATIVE SOURCE (test code = 27858) NOT SPECIFIED Delfino Schumacher UojwwmJAJZ-EzM-9 (COVID-19) by RT-PCR (HIGH RISK)2020-01-21 00:00:00* Test Item Value Reference Range Interpretation Comme nts SARS-CoV-2 INTERPRETATION (t est code = 50901) NEGATIVE SOURCE (test code = 51308) NOT SPECIFIED Delfino Schumacher EijkfcMZUD-UrG-5 (COVID-19) by RT-PCR (HIGH RISK)2020-01-21 00:00:00* Test Item Value Reference Range Interpretation Comme nts SARS-CoV-2 INTERPRETATION (t est code = 31742) NEGATIVE SOURCE (test code = 96410) NOT SPECIFIED Delfino Schumacher QjjnjqGUWF-SeN-7 (COVID-19) by RT-PCR (HIGH RISK)2020-01-21 00:00:00* Test Item Value Reference Range Interpretation Comme nts SARS-CoV-2 INTERPRETATION (t est code = 57165) NEGATIVE SOURCE (test code = 29581) NOT SPECIFIED Delfino Schumacher XcakbcVJQI-TsC-1 (COVID-19) by RT-PCR (HIGH RISK)2020-01-21 00:00:00* Test Item Value Reference Range Interpretation Comme nts SARS-CoV-2 INTERPRETATION (t est code = 51389) NEGATIVE SOURCE (test code = 94876) NOT SPECIFIED Delfino F WxufsuBKSR-CsH-9 (COVID-19) by RT-PCR (HIGH RISK)2020-01-21 00:00:00* Test Item Value Reference Range Interpretation Comme nts SARS-CoV-2 INTERPRETATION (t est code = 85484) NEGATIVE SOURCE (test code = 12487) NOT SPECIFIED Delfino Schumacher HwsikcTOBT-KzZ-9 (COVID-19) by RT-PCR (HIGH RISK)2020-01-21 00:00:00* Test Item Value Reference Range Interpretation Comme nts SARS-CoV-2 INTERPRETATION (t est code = 65877) NEGATIVE SOURCE (test code = 60073) NOT SPECIFIED Delfino Schumacher MkjbrjOJER-ZnG-2 (COVID-19) by RT-PCR (HIGH RISK)2020-01-21 00:00:00* Test Item Value Reference Range Interpretation Comme nts SARS-CoV-2 INTERPRETATION (t est code = 93854) NEGATIVE SOURCE (test code = 51173) NOT SPECIFIED SARS-CoV-2 (COVID-19) by RT-PCR (HIGH RISK)2020-01-21 00:00:00* Test Item Value Reference Range Interpretation Comme nts SARS-CoV-2 INTERPRETATION (t est code = 74670) NEGATIVE SOURCE (test code = 21399) NOT SPECIFIED Delfino Schumacher SzlyskELDU-PtN-6 (COVID-19) by RT-PCR (HIGH RISK)2020-01-21 00:00:00* Test Item Value Reference Range Interpretation Comme nts SARS-CoV-2 INTERPRETATION (t est code = 92843) NEGATIVE SOURCE (test code = 86972) NOT SPECIFIED SARS-CoV-2 (COVID-19) by RT-PCR (HIGH RISK)2020-01-21 00:00:00* Test Item Value Reference Range Interpretation Comme nts SARS-CoV-2 INTERPRETATION (t est code = 56210) NEGATIVE SOURCE (test code = 03120) NOT SPECIFIED SARS-CoV-2 (COVID-19) by RT-PCR (HIGH RISK)2020-01-21 00:00:00* Test Item Value Reference Range Interpretation Comme nts SARS-CoV-2 INTERPRETATION (t est code = 07220) NEGATIVE SOURCE (test code = 92030) NOT SPECIFIED SARS-CoV-2 (COVID-19) by RT-PCR (HIGH RISK)2020-01-21 00:00:00* Test Item Value Reference Range Interpretation Comme nts SARS-CoV-2 INTERPRETATION (t est code = 15722) NEGATIVE SOURCE (test code = 61465) NOT SPECIFIED Delfino Schumacher FgozudVTBK-HoN-1 (COVID-19) by RT-PCR (HIGH RISK)2020-01-21 00:00:00* Test Item Value Reference Range Interpretation Comme nts SARS-CoV-2 INTERPRETATION (t est code = 31313) NEGATIVE SOURCE (test code = 12526) NOT SPECIFIED Delfino Schumacher SmozzoVZSF-ZzH-4 (COVID-19) by RT-PCR (HIGH RISK)2020-01-21 00:00:00* Test Item Value Reference Range Interpretation Comme nts SARS-CoV-2 INTERPRETATION (t est code = 19343) NEGATIVE SOURCE (test code = 22536) NOT SPECIFIED Delfino Schumacher XxbehyRJPQ-IkW-5 (COVID-19) by RT-PCR (HIGH RISK)2020-01-21 00:00:00* Test Item Value Reference Range Interpretation Comme nts SARS-CoV-2 INTERPRETATION (t est code = 56578) NEGATIVE SOURCE (test code = 11563) NOT SPECIFIED Delfino Schumacher OoqvrxWTFI-MzY-3 (COVID-19) by RT-PCR (HIGH RISK)2020-01-21 00:00:00* Test Item Value Reference Range Interpretation Comme nts SARS-CoV-2 INTERPRETATION (t est code = 23045) NEGATIVE SOURCE (test code = 06864) NOT SPECIFIED Delfino Schumacher YouCBC W/AUTO [id number] 00:00:00* Test Item Value Reference Range Interpretation [...] 1015) 186 K/UL Delfino Schumacher YouCOMPREHENSIVE METABOLIC [id number] 00:00:00* Test Item Value Reference Range Interpretation Comme nts GLUCOSE (test code = 2217) 86 MG/DL BUN (test code = 2208) 16 MG/DL CREATININE (test code = 2214) 0.90 MG/DL eGFR AMER. (test cod e = 95174) 83 ML/MIN/1.73 eGFR NON- AMER. (test code = 12428) 71 ML/MIN/1.73 CALC BUN/CREAT (test code = [...] = 2219) 29 U/L Delfino OrtaCBC W/AUTO [id number] 00:00:00* Test Item Value Reference Range Interpretation [...] = 1015) 186 K/UL Delfino OrtaCOMPREHENSIVE METABOLIC [id number] 00:00:00* Test Item Value Reference Range Interpretation Comme nts GLUCOSE (test code = 2217) 86 MG/DL BUN (test code = 2208) 16 MG/DL CREATININE (test code = 2214) 0.90 MG/DL eGFR AMER. (test cod e = 41369) 83 ML/MIN/1.73 eGFR NON- AMER. (test code = 16035) 71 ML/MIN/1.73 CALC BUN/CREAT (test code = [...] = 2219) 29 U/L Delfino OrtaCBC W/AUTO [id number] 00:00:00* Test Item Value Reference Range Interpretation [...] = 1015) 186 K/UL Delfino OrtaCOMPREHENSIVE METABOLIC [id number] 00:00:00* Test Item Value Reference Range Interpretation Comme nts GLUCOSE (test code = 2217) 86 MG/DL BUN (test code = 2208) 16 MG/DL CREATININE (test code = 2214) 0.90 MG/DL eGFR AMER. (test cod e = 38419) 83 ML/MIN/1.73 eGFR NON- AMER. (test code = 95777) 71 ML/MIN/1.73 CALC BUN/CREAT (test code = [...] = 2219) 29 U/L Delfino OrtaCBC W/AUTO [id number] 00:00:00* Test Item Value Reference Range Interpretation [...] = 1015) 186 K/UL Delfino OrtaCOMPREHENSIVE METABOLIC [id number] 00:00:00* Test Item Value Reference Range Interpretation Comme nts GLUCOSE (test code = 2217) 86 MG/DL BUN (test code = 2208) 16 MG/DL CREATININE (test code = 2214) 0.90 MG/DL eGFR AMER. (test cod e = 76890) 83 ML/MIN/1.73 eGFR NON- AMER. (test code = 27437) 71 ML/MIN/1.73 CALC BUN/CREAT (test code = [...] = 2219) 29 U/L Delfino OrtaCBC W/AUTO [id number] 00:00:00* Test Item Value Reference Range Interpretation [...] = 1015) 186 K/UL Delfino OrtaCOMPREHENSIVE METABOLIC [id number] 00:00:00* Test Item Value Reference Range Interpretation Comme nts GLUCOSE (test code = 2217) 86 MG/DL BUN (test code = 2208) 16 MG/DL CREATININE (test code = 2214) 0.90 MG/DL eGFR AMER. (test cod e = 83218) 83 ML/MIN/1.73 eGFR NON- AMER. (test code = 72875) 71 ML/MIN/1.73 CALC BUN/CREAT (test code = [...] = 2219) 29 U/L Delfino OrtaCBC W/AUTO [id number] 00:00:00* Test Item Value Reference Range Interpretation [...] = 1015) 186 K/UL Delfino OrtaCOMPREHENSIVE METABOLIC [id number] 00:00:00* Test Item Value Reference Range Interpretation Comme nts GLUCOSE (test code = 2217) 86 MG/DL BUN (test code = 2208) 16 MG/DL CREATININE (test code = 2214) 0.90 MG/DL eGFR AMER. (test cod e = 36081) 83 ML/MIN/1.73 eGFR NON- AMER. (test code = 34791) 71 ML/MIN/1.73 CALC BUN/CREAT (test code = [...] = 2219) 29 U/L Delfino OrtaCBC W/AUTO [id number] 00:00:00* Test Item Value Reference Range Interpretation [...] = 1015) 186 K/UL Delfino OrtaCOMPREHENSIVE METABOLIC [id number] 00:00:00* Test Item Value Reference Range Interpretation Comme nts GLUCOSE (test code = 2217) 86 MG/DL BUN (test code = 2208) 16 MG/DL CREATININE (test code = 2214) 0.90 MG/DL eGFR AMER. (test cod e = 99599) 83 ML/MIN/1.73 eGFR NON- AMER. (test code = 89002) 71 ML/MIN/1.73 CALC BUN/CREAT (test code = [...] = 2219) 29 U/L Delfino OrtaCBC W/AUTO [id number] 00:00:00* Test Item Value Reference Range Interpretation [...] 1015) 186 K/UL Delfino Schumacher YouCOMPREHENSIVE METABOLIC [id number] 00:00:00* Test Item Value Reference Range Interpretation Comme nts GLUCOSE (test code = 2217) 86 MG/DL BUN (test code = 2208) 16 MG/DL CREATININE (test code = 2214) 0.90 MG/DL eGFR AMER. (test cod e = 42847) 83 ML/MIN/1.73 eGFR NON- AMER. (test code = 96652) 71 ML/MIN/1.73 CALC BUN/CREAT (test code = [...] 2219) 29 U/L Delfino Schumacher YouCBC W/AUTO [id number] 00:00:00* Test Item Value Reference Range Interpretation [...] = 1015) 186 K/UL Delfino OrtaCOMPREHENSIVE METABOLIC [id number] 00:00:00* Test Item Value Reference Range Interpretation Comme nts GLUCOSE (test code = 2217) 86 MG/DL BUN (test code = 2208) 16 MG/DL CREATININE (test code = 2214) 0.90 MG/DL eGFR AMER. (test cod e = 64242) 83 ML/MIN/1.73 eGFR NON- AMER. (test code = 35237) 71 ML/MIN/1.73 CALC BUN/CREAT (test code = [...] = 2219) 29 U/L Delfino OrtaCBC W/AUTO [id number] 00:00:00* Test Item Value Reference Range Interpretation [...] = 1015) 186 K/UL Delfino OrtaCOMPREHENSIVE METABOLIC [id number] 00:00:00* Test Item Value Reference Range Interpretation Comme nts GLUCOSE (test code = 2217) 86 MG/DL BUN (test code = 2208) 16 MG/DL CREATININE (test code = 2214) 0.90 MG/DL eGFR AMER. (test cod e = 76066) 83 ML/MIN/1.73 eGFR NON- AMER. (test code = 46791) 71 ML/MIN/1.73 CALC BUN/CREAT (test code = [...] = 2219) 29 U/L Delfino OrtaCBC W/AUTO [id number] 00:00:00* Test Item Value Reference Range Interpretation [...] = 1015) 186 K/UL Delfino OrtaCOMPREHENSIVE METABOLIC [id number] 00:00:00* Test Item Value Reference Range Interpretation Comme nts GLUCOSE (test code = 2217) 86 MG/DL BUN (test code = 2208) 16 MG/DL CREATININE (test code = 2214) 0.90 MG/DL eGFR AMER. (test cod e = 34287) 83 ML/MIN/1.73 eGFR NON- AMER. (test code = 46161) 71 ML/MIN/1.73 CALC BUN/CREAT (test code = [...] = 2219) 29 U/L Delfino OrtaCBC W/AUTO [id number] 00:00:00* Test Item Value Reference Range Interpretation [...] 1015) 186 K/UL Delfino Schumacher YouCOMPREHENSIVE METABOLIC [id number] 00:00:00* Test Item Value Reference Range Interpretation Comme nts GLUCOSE (test code = 2217) 86 MG/DL BUN (test code = 2208) 16 MG/DL CREATININE (test code = 2214) 0.90 MG/DL eGFR AMER. (test cod e = 23385) 83 ML/MIN/1.73 eGFR NON- AMER. (test code = 90911) 71 ML/MIN/1.73 CALC BUN/CREAT (test code = [...] 2219) 29 U/L Delfino Schumacher YouCBC W/AUTO [id number] 00:00:00* Test Item Value Reference Range Interpretation [...] = 1015) 186 K/UL Delfino OrtaCOMPREHENSIVE METABOLIC [id number] 00:00:00* Test Item Value Reference Range Interpretation Comme nts GLUCOSE (test code = 2217) 86 MG/DL BUN (test code = 2208) 16 MG/DL CREATININE (test code = 2214) 0.90 MG/DL eGFR AMER. (test cod e = 81051) 83 ML/MIN/1.73 eGFR NON- AMER. (test code = 21160) 71 ML/MIN/1.73 CALC BUN/CREAT (test code = [...] = 2219) 29 U/L Delfino OrtaCBC W/AUTO [id number] 00:00:00* Test Item Value Reference Range Interpretation [...] 1015) 186 K/UL Delfino Schumacher AustinCOMPREHENSIVE METABOLIC [id number] 00:00:00* Test Item Value Reference Range Interpretation Comme nts GLUCOSE (test code = 2217) 86 MG/DL BUN (test code = 2208) 16 MG/DL CREATININE (test code = 2214) 0.90 MG/DL eGFR AMER. (test cod e = 67486) 83 ML/MIN/1.73 eGFR NON- AMER. (test code = 64309) 71 ML/MIN/1.73 CALC BUN/CREAT (test code = [...] code = 2219) 29 U/L COMPREHENSIVE METABOLIC [id number] 00:00:00* Test Item Value Reference Range Interpretation Comme nts GLUCOSE (test code = 2217) 86 MG/DL BUN (test code = 2208) 16 MG/DL CREATININE (test code = 2214) 0.90 MG/DL eGFR AMER. (test cod e = 07827) 83 ML/MIN/1.73 eGFR NON- AMER. (test code = 07038) 71 ML/MIN/1.73 CALC BUN/CREAT (test code = [...] = 2219) 29 U/L Delfino OrtaCOMPREHENSIVE METABOLIC [id number] 00:00:00* Test Item Value Reference Range Interpretation Comme nts GLUCOSE (test code = 2217) 86 MG/DL BUN (test code = 2208) 16 MG/DL CREATININE (test code = 2214) 0.90 MG/DL eGFR AMER. (test cod e = 41546) 83 ML/MIN/1.73 eGFR NON- AMER. (test code = 91627) 71 ML/MIN/1.73 CALC BUN/CREAT (test code = [...] (test code = 2219) 29 U/[facility] [id number] 00:00:00* Test Item Value Reference Range Interpretation [...] code = 1015) 186 K/UL COMPREHENSIVE METABOLIC [id number] 00:00:00* Test Item Value Reference Range Interpretation Comme nts GLUCOSE (test code = 2217) 86 MG/DL BUN (test code = 2208) 16 MG/DL CREATININE (test code = 2214) 0.90 MG/DL eGFR AMER. (test cod e = 70140) 83 ML/MIN/1.73 eGFR NON- AMER. (test code = 39708) 71 ML/MIN/1.73 CALC BUN/CREAT (test code = [...] code = 2219) 29 U/L CBC W/AUTO [id number] 00:00:00* Test Item Value Reference Range Interpretation [...] code = 1015) 186 K/UL COMPREHENSIVE METABOLIC [id number] 00:00:00* Test Item Value Reference Range Interpretation Comme nts GLUCOSE (test code = 2217) 86 MG/DL BUN (test code = 2208) 16 MG/DL CREATININE (test code = 2214) 0.90 MG/DL eGFR AMER. (test cod e = 79135) 83 ML/MIN/1.73 eGFR NON- AMER. (test code = 20462) 71 ML/MIN/1.73 CALC BUN/CREAT (test code = [...] code = 2219) 29 U/L CBC W/AUTO [id number] 00:00:00* Test Item Value Reference Range Interpretation [...] code = 1015) 186 K/UL COMPREHENSIVE METABOLIC [id number] 00:00:00* Test Item Value Reference Range Interpretation Comme nts GLUCOSE (test code = 2217) 86 MG/DL BUN (test code = 2208) 16 MG/DL CREATININE (test code = 2214) 0.90 MG/DL eGFR AMER. (test cod e = 60927) 83 ML/MIN/1.73 eGFR NON- AMER. (test code = 99641) 71 ML/MIN/1.73 CALC BUN/CREAT (test code = [...] code = 2219) 29 U/L CBC W/AUTO [id number] 00:00:00* Test Item Value Reference Range Interpretation [...] code = 1015) 186 K/UL CBC W/AUTO [id number] 00:00:00* Test Item Value Reference Range Interpretation [...] = 1015) 186 K/UL Delfino OrtaCOMPREHENSIVE METABOLIC [id number] 00:00:00* Test Item Value Reference Range Interpretation Comme nts GLUCOSE (test code = 2217) 86 MG/DL BUN (test code = 2208) 16 MG/DL CREATININE (test code = 2214) 0.90 MG/DL eGFR AMER. (test cod e = 18008) 83 ML/MIN/1.73 eGFR NON- AMER. (test code = 82232) 71 ML/MIN/1.73 CALC BUN/CREAT (test code = [...] = 2219) 29 U/L Delfino OrtaCBC W/AUTO [id number] 00:00:00* Test Item Value Reference Range Interpretation [...] = 1015) 186 K/UL Delfino OrtaCOMPREHENSIVE METABOLIC [id number] 00:00:00* Test Item Value Reference Range Interpretation Comme nts GLUCOSE (test code = 2217) 86 MG/DL BUN (test code = 2208) 16 MG/DL CREATININE (test code = 2214) 0.90 MG/DL eGFR AMER. (test cod e = 27348) 83 ML/MIN/1.73 eGFR NON- AMER. (test code = 25628) 71 ML/MIN/1.73 CALC BUN/CREAT (test code = [...] 2219) 29 U/L Delfino Endy [place]CBC W/AUTO [id number] 00:00:00* Test Item Value Reference Range Interpretation [...] code = 1015) 186 K/UL Delfino Endy AustinCBC W/AUTO [id number] 00:00:00* Test Item Value Reference Range Interpretation [...] = 1015) 186 K/UL Delfino OrtaCOMPREHENSIVE METABOLIC [id number] 00:00:00* Test Item Value Reference Range Interpretation Comme nts GLUCOSE (test code = 2217) 86 MG/DL BUN (test code = 2208) 16 MG/DL CREATININE (test code = 2214) 0.90 MG/DL eGFR AMER. (test cod e = 77370) 83 ML/MIN/1.73 eGFR NON- AMER. (test code = 86818) 71 ML/MIN/1.73 CALC BUN/CREAT (test code = [...] = 2219) 29 U/L Delfino OrtaCBC W/AUTO [id number] 00:00:00* Test Item Value Reference Range Interpretation [...] = 1015) 186 K/UL Delfino OrtaCOMPREHENSIVE METABOLIC [id number] 00:00:00* Test Item Value Reference Range Interpretation Comme nts GLUCOSE (test code = 2217) 86 MG/DL BUN (test code = 2208) 16 MG/DL CREATININE (test code = 2214) 0.90 MG/DL eGFR AMER. (test cod e = 10178) 83 ML/MIN/1.73 eGFR NON- AMER. (test code = 63903) 71 ML/MIN/1.73 CALC BUN/CREAT (test code = [...] = 2219) 29 U/L Delfino OrtaCBC W/AUTO [id number] 00:00:00* Test Item Value Reference Range Interpretation [...] (test code = 1016) (NOTE) Delfino Schumacher [facility] W/AUTO [id number] 00:00:00* Test Item Value Reference Range Interpretation [...] code = 1016) (NOTE) Delfino OrtaC W/AUTO [id number] 00:00:00* Test Item Value Reference Range Interpretation [...] (test code = 1016) (NOTE) Delfino Schumacher [facility] W/AUTO [id number] 00:00:00* Test Item Value Reference Range Interpretation [...] (test code = 1016) (NOTE) Delfino Schumacher [facility] W/AUTO [id number] 00:00:00* Test Item Value Reference Range Interpretation [...] (test code = 1016) (NOTE) Delfino Schumacher [facility] W/AUTO [id number] 00:00:00* Test Item Value Reference Range Interpretation [...] COMMENTS (test code = 1016) (NOTE) [facility] [id number] 00:00:00* Test Item Value Reference Range Interpretation [...] code = 1016) (NOTE) Delfino OrtaCBC W/AUTO [id number] 00:00:00* Test Item Value Reference Range Interpretation [...] code = 1016) (NOTE) Delfino OrtaCBC W/AUTO [id number] 00:00:00* Test Item Value Reference Range Interpretation [...] code = 1016) (NOTE) Delfino OrtaCBC W/AUTO [id number] 00:00:00* Test Item Value Reference Range Interpretation [...] (test code = 1016) (NOTE) Delfino [place]umacher [place] [id number] 00:00:00* Test Item Value Reference Range Interpretation [...] (test code = 1016) (NOTE) Delfino Schumacher [facility] W/AUTO [id number] 00:00:00* Test Item Value Reference Range Interpretation [...] (test code = 1016) (NOTE) Delfino Schumacher [facility] W/AUTO [id number] 00:00:00* Test Item Value Reference Range Interpretation [...] (test code = 1016) (NOTE) Delfino Schumacher [facility] W/AUTO [id number] 00:00:00* Test Item Value Reference Range Interpretation [...] = 1016) (NOTE) Delfino Endy [facility] W/AUTO [id number] 00:00:00* Test Item Value Reference Range Interpretation [...] (test code = 1016) (NOTE) CBC W/AUTO [id number] 00:00:00* Test Item Value Reference Range Interpretation [...] = 1016) (NOTE) Delfino Endy [facility] W/AUTO [id number] 00:00:00* Test Item Value Reference Range Interpretation [...] (test code = 1016) (NOTE) CBC W/AUTO [id number] 00:00:00* Test Item Value Reference Range Interpretation [...] (test code = 1016) (NOTE) CBC W/AUTO [id number] 00:00:00* Test Item Value Reference Range Interpretation [...] (test code = 1016) (NOTE) CBC W/AUTO [id number] 00:00:00* Test Item Value Reference Range Interpretation [...] code = 1016) (NOTE) Delfino OrtaCBC W/AUTO [id number] 00:00:00* Test Item Value Reference Range Interpretation [...] code = 1016) (NOTE) Delfino OrtaC W/AUTO [id number] 00:00:00* Test Item Value Reference Range Interpretation [...] (test code = 1016) (NOTE) Delfino Schumacher Ronald W/AUTO [id number] 00:00:00* Test Item Value Reference Range Interpretation [...] = 1016) (NOTE) Delfino Schumacher YouCOMPREHENSIVE METABOLIC [id number] 00:00:00* Test Item Value Reference Range Interpretation Comme nts GLUCOSE (test code = 2217) 92 MG/DL BUN (test code = 2208) 20 MG/DL CREATININE (test code = 2214) 1.31 MG/DL eGFR AMER. (test cod e = 30228) 53 ML/MIN/1.73 eGFR NON- AMER. (test code = 18333) 45 ML/MIN/1.73 CALC BUN/CREAT (test code = [...] (test code = 2219) 16 U/L Delfino [employer] W/AUTO [id number] 00:00:00* Test Item Value Reference Range Interpretation [...] COMMENTS (test code = 1016) (NOTE) Delfino OrtaGroup [employer] W/AUTO [id number] 00:00:00* Test Item Value Reference Range Interpretation [...] 1016) (NOTE) Delfino Schumacher [facility]VAGINAL PATHOGENS DNA [id number] 00:00:00* Test Item Value Reference Range Interpretation Comme nts DIANNA SPECIES (test code = ) NEGATIVE G. VAGINALIS (test code = 11413) POSITIVE T. VAGINALIS (test code = 23689) NEGATIVE Delfino OrtaCOMPREHENSIVE METABOLIC [id number] 00:00:00* Test Item Value Reference Range Interpretation Comme nts GLUCOSE (test code = 2217) 92 MG/DL BUN (test code = 2208) 20 MG/DL CREATININE (test code = 2214) 1.31 MG/DL eGFR AMER. (test cod e = 66551) 53 ML/MIN/1.73 eGFR NON- AMER. (test code = 45529) 45 ML/MIN/1.73 CALC BUN/CREAT (test code = [...] = 2219) 16 U/L Delfino OrtaCBC W/AUTO [id number] 00:00:00* Test Item Value Reference Range Interpretation [...] = 1016) (NOTE) Delfino OrtaVAGINAL PATHOGENS DNA [id number] 00:00:00* Test Item Value Reference Range Interpretation Comme nts DIANNA SPECIES (test code = ) NEGATIVE G. VAGINALIS (test code = ) POSITIVE T. VAGINALIS (test code = ) NEGATIVE Delfino OrtaCOMPREHENSIVE METABOLIC [id number] 00:00:00* Test Item Value Reference Range Interpretation Comme nts GLUCOSE (test code = 2217) 92 MG/DL BUN (test code = 2208) 20 MG/DL CREATININE (test code = 2214) 1.31 MG/DL eGFR AMER. (test cod e = 85574) 53 ML/MIN/1.73 eGFR NON- AMER. (test code = 36565) 45 ML/MIN/1.73 CALC BUN/CREAT (test code = [...] 2219) 16 U/L Delfino Schumacher YouCBC W/AUTO [id number] 00:00:00* Test Item Value Reference Range Interpretation [...] 1016) (NOTE) Delfino Schumacher YouVAGINAL PATHOGENS DNA [id number] 00:00:00* Test Item Value Reference Range Interpretation Comme nts DIANNA SPECIES (test code = ) NEGATIVE G. VAGINALIS (test code = ) POSITIVE T. VAGINALIS (test code = ) NEGATIVE Delfino cShumacher YouCOMPREHENSIVE METABOLIC [id number] 00:00:00* Test Item Value Reference Range Interpretation Comme nts GLUCOSE (test code = 7) 92 MG/DL BUN (test code = 2208) 20 MG/DL CREATININE (test code = 2214) 1.31 MG/DL eGFR AMER. (test cod e = 77936) 53 ML/MIN/1.73 eGFR NON- AMER. (test code = 35463) 45 ML/MIN/1.73 CALC BUN/CREAT (test code = [...] = 2219) 16 U/L Delfino OrtaCBC W/AUTO [id number] 00:00:00* Test Item Value Reference Range Interpretation [...] = 1016) (NOTE) Delfino OrtaVAGINAL PATHOGENS DNA [id number] 00:00:00* Test Item Value Reference Range Interpretation Comme nts DIANNA SPECIES (test code = ) NEGATIVE G. VAGINALIS (test code = ) POSITIVE T. VAGINALIS (test code = ) NEGATIVE Delfino OrtaCOMPREHENSIVE METABOLIC [id number] 00:00:00* Test Item Value Reference Range Interpretation Comme nts GLUCOSE (test code = 2217) 92 MG/DL BUN (test code = 2208) 20 MG/DL CREATININE (test code = 2214) 1.31 MG/DL eGFR AMER. (test cod e = 76936) 53 ML/MIN/1.73 eGFR NON- AMER. (test code = 92475) 45 ML/MIN/1.73 CALC BUN/CREAT (test code = [...] 2219) 16 U/L Delfino Schumacher YouCBC W/AUTO [id number] 00:00:00* Test Item Value Reference Range Interpretation [...] = 1016) (NOTE) Delfino OrtaVAGINAL PATHOGENS DNA [id number] 00:00:00* Test Item Value Reference Range Interpretation Comme nts DIANNA SPECIES (test code = ) NEGATIVE G. VAGINALIS (test code = ) POSITIVE T. VAGINALIS (test code = ) NEGATIVE Delfino OrtaCOMPREHENSIVE METABOLIC [id number] 00:00:00* Test Item Value Reference Range Interpretation Comme nts GLUCOSE (test code = 2217) 92 MG/DL BUN (test code = 2208) 20 MG/DL CREATININE (test code = 2214) 1.31 MG/DL eGFR AMER. (test cod e = 01007) 53 ML/MIN/1.73 eGFR NON- AMER. (test code = 53265) 45 ML/MIN/1.73 CALC BUN/CREAT (test code = [...] = 2219) 16 U/L Delfino OrtaCBC W/AUTO [id number] 00:00:00* Test Item Value Reference Range Interpretation [...] 1016) (NOTE) Delfino F AustinVAGINAL PATHOGENS DNA [id number] 00:00:00* Test Item Value Reference Range Interpretation Comme nts DIANNA SPECIES (test code = ) NEGATIVE G. VAGINALIS (test code = ) POSITIVE T. VAGINALIS (test code = ) NEGATIVE Delfino Schumacher YouCOMPREHENSIVE METABOLIC [id number] 00:00:00* Test Item Value Reference Range Interpretation Comme nts GLUCOSE (test code = 2217) 92 MG/DL BUN (test code = 2208) 20 MG/DL CREATININE (test code = 2214) 1.31 MG/DL eGFR AMER. (test cod e = 29560) 53 ML/MIN/1.73 eGFR NON- AMER. (test code = 01936) 45 ML/MIN/1.73 CALC BUN/CREAT (test code = [...] = 2219) 16 U/L Delfino OrtaCBC W/AUTO [id number] 00:00:00* Test Item Value Reference Range Interpretation [...] = 1016) (NOTE) Delfino OrtaVAGINAL PATHOGENS DNA [id number] 00:00:00* Test Item Value Reference Range Interpretation Comme nts DIANNA SPECIES (test code = ) NEGATIVE G. VAGINALIS (test code = ) POSITIVE T. VAGINALIS (test code = ) NEGATIVE Delfino OrtaCOMPREHENSIVE METABOLIC [id number] 00:00:00* Test Item Value Reference Range Interpretation Comme nts GLUCOSE (test code = 2217) 92 MG/DL BUN (test code = 2208) 20 MG/DL CREATININE (test code = 2214) 1.31 MG/DL eGFR AMER. (test cod e = 48510) 53 ML/MIN/1.73 eGFR NON- AMER. (test code = 29860) 45 ML/MIN/1.73 CALC BUN/CREAT (test code = [...] = 2219) 16 U/L Delfino OrtaCBC W/AUTO [id number] 00:00:00* Test Item Value Reference Range Interpretation [...] = 1016) (NOTE) Delfino OrtaVAGINAL PATHOGENS DNA [id number] 00:00:00* Test Item Value Reference Range Interpretation Comme nts DIANNA SPECIES (test code = ) NEGATIVE G. VAGINALIS (test code = ) POSITIVE T. VAGINALIS (test code = 72635) NEGATIVE Delfino OrtaCOMPREHENSIVE METABOLIC [id number] 00:00:00* Test Item Value Reference Range Interpretation Comme nts GLUCOSE (test code = 2217) 92 MG/DL BUN (test code = 2208) 20 MG/DL CREATININE (test code = 2214) 1.31 MG/DL eGFR AMER. (test cod e = 21279) 53 ML/MIN/1.73 eGFR NON- AMER. (test code = 25354) 45 ML/MIN/1.73 CALC BUN/CREAT (test code = [...] = 2219) 16 U/L Delfino OrtaCBC W/AUTO [id number] 00:00:00* Test Item Value Reference Range Interpretation [...] = 1016) (NOTE) Delfino OrtaVAGINAL PATHOGENS DNA [id number] 00:00:00* Test Item Value Reference Range Interpretation Comme nts DIANNA SPECIES (test code = ) NEGATIVE G. VAGINALIS (test code = ) POSITIVE T. VAGINALIS (test code = ) NEGATIVE Delfino OrtaCOMPREHENSIVE METABOLIC [id number] 00:00:00* Test Item Value Reference Range Interpretation Comme nts GLUCOSE (test code = 2217) 92 MG/DL BUN (test code = 2208) 20 MG/DL CREATININE (test code = 2214) 1.31 MG/DL eGFR AMER. (test cod e = 93552) 53 ML/MIN/1.73 eGFR NON- AMER. (test code = 54251) 45 ML/MIN/1.73 CALC BUN/CREAT (test code = [...] (test code = 2219) 16 U/L Delfino OrtaMeg W/AUTO [id number] 00:00:00* Test Item Value Reference Range Interpretation [...] 1016) (NOTE) Delfino F AustinVAGINAL PATHOGENS DNA [id number] 00:00:00* Test Item Value Reference Range Interpretation Comme nts DIANNA SPECIES (test code = ) NEGATIVE G. VAGINALIS (test code = ) POSITIVE T. VAGINALIS (test code = ) NEGATIVE Delfino OrtaCOMPREHENSIVE METABOLIC [id number] 00:00:00* Test Item Value Reference Range Interpretation Comme nts GLUCOSE (test code = 2217) 92 MG/DL BUN (test code = 2208) 20 MG/DL CREATININE (test code = 2214) 1.31 MG/DL eGFR AMER. (test cod e = 37244) 53 ML/MIN/1.73 eGFR NON- AMER. (test code = 51697) 45 ML/MIN/1.73 CALC BUN/CREAT (test code = [...] = 2219) 16 U/L Delfino OrtaCBC W/AUTO [id number] 00:00:00* Test Item Value Reference Range Interpretation [...] 1016) (NOTE) Delfino Schumacher AustinVAGINAL PATHOGENS DNA [id number] 00:00:00* Test Item Value Reference Range Interpretation Comme nts DIANNA SPECIES (test code = ) NEGATIVE G. VAGINALIS (test code = ) POSITIVE T. VAGINALIS (test code = ) NEGATIVE Delfino OrtaCOMPREHENSIVE METABOLIC [id number] 00:00:00* Test Item Value Reference Range Interpretation Comme nts GLUCOSE (test code = 2217) 92 MG/DL BUN (test code = 2208) 20 MG/DL CREATININE (test code = 2214) 1.31 MG/DL eGFR AMER. (test cod e = 98336) 53 ML/MIN/1.73 eGFR NON- AMER. (test code = 79718) 45 ML/MIN/1.73 CALC BUN/CREAT (test code = [...] = 2219) 16 U/L Delfino OrtaCBC W/AUTO [id number] 00:00:00* Test Item Value Reference Range Interpretation [...] 1016) (NOTE) Delfino Endy AustinVAGINAL PATHOGENS DNA [id number] 00:00:00* Test Item Value Reference Range Interpretation Comme nts DIANNA SPECIES (test code = ) NEGATIVE G. VAGINALIS (test code = ) POSITIVE T. VAGINALIS (test code = ) NEGATIVE Delfino Schumacher YouCOMPREHENSIVE METABOLIC [id number] 00:00:00* Test Item Value Reference Range Interpretation Comme nts GLUCOSE (test code = 2217) 92 MG/DL BUN (test code = 2208) 20 MG/DL CREATININE (test code = 2214) 1.31 MG/DL eGFR AMER. (test cod e = 31997) 53 ML/MIN/1.73 eGFR NON- AMER. (test code = 41335) 45 ML/MIN/1.73 CALC BUN/CREAT (test code = [...] = 2219) 16 U/L Delfino OrtaCBC W/AUTO [id number] 00:00:00* Test Item Value Reference Range Interpretation [...] = 1016) (NOTE) Delfino OrtaVAGINAL PATHOGENS DNA [id number] 00:00:00* Test Item Value Reference Range Interpretation Comme nts DIANNA SPECIES (test code = 74074) NEGATIVE G. VAGINALIS (test code = ) POSITIVE T. VAGINALIS (test code = 62334) NEGATIVE Delfino OrtaCOMPREHENSIVE METABOLIC [id number] 00:00:00* Test Item Value Reference Range Interpretation Comme nts GLUCOSE (test code = 2217) 92 MG/DL BUN (test code = 2208) 20 MG/DL CREATININE (test code = 2214) 1.31 MG/DL eGFR AMER. (test cod e = 07220) 53 ML/MIN/1.73 eGFR NON- AMER. (test code = 27493) 45 ML/MIN/1.73 CALC BUN/CREAT (test code = [...] (test code = 2219) 16 U/L Delfino OrtaVAGINAL PATHOGENS DNA [id number] 00:00:00* Test Item Value Reference Range Interpretation Comme nts DIANNA SPECIES (test code = ) NEGATIVE G. VAGINALIS (test code = ) POSITIVE T. VAGINALIS (test code = ) NEGATIVE CBC W/AUTO [id number] 00:00:00* Test Item Value Reference Range Interpretation [...] code = 1016) (NOTE) Delfino OrtaCOMPREHENSIVE METABOLIC [id number] 00:00:00* Test Item Value Reference Range Interpretation Comme nts GLUCOSE (test code = 2217) 92 MG/DL BUN (test code = 2208) 20 MG/DL CREATININE (test code = 2214) 1.31 MG/DL eGFR AMER. (test cod e = 30408) 53 ML/MIN/1.73 eGFR NON- AMER. (test code = 33605) 45 ML/MIN/1.73 CALC BUN/CREAT (test code = [...] = 2219) 16 U/L VAGINAL PATHOGENS DNA [id number] 00:00:00* Test Item Value Reference Range Interpretation Comme nts DIANNA SPECIES (test code = ) NEGATIVE G. VAGINALIS (test code = ) POSITIVE T. VAGINALIS (test code = ) NEGATIVE Delfino OrtaMeg W/AUTO [id number] 00:00:00* Test Item Value Reference Range Interpretation [...] code = 1016) (NOTE) VAGINAL PATHOGENS DNA [id number] 00:00:00* Test Item Value Reference Range Interpretation Comme nts DIANNA SPECIES (test code = ) NEGATIVE G. VAGINALIS (test code = ) POSITIVE T. VAGINALIS (test code = ) NEGATIVE COMPREHENSIVE METABOLIC [id number] 00:00:00* Test Item Value Reference Range Interpretation Comme nts GLUCOSE (test code = 2217) 92 MG/DL BUN (test code = 2208) 20 MG/DL CREATININE (test code = 2214) 1.31 MG/DL eGFR AMER. (test cod e = 73463) 53 ML/MIN/1.73 eGFR NON- AMER. (test code = 81620) 45 ML/MIN/1.73 CALC BUN/CREAT (test code = [...] code = 2219) 16 U/L CBC W/AUTO [id number] 00:00:00* Test Item Value Reference Range Interpretation [...] code = 1016) (NOTE) VAGINAL PATHOGENS DNA [id number] 00:00:00* Test Item Value Reference Range Interpretation Comme nts DIANNA SPECIES (test code = ) NEGATIVE G. VAGINALIS (test code = ) POSITIVE T. VAGINALIS (test code = ) NEGATIVE COMPREHENSIVE METABOLIC [id number] 00:00:00* Test Item Value Reference Range Interpretation Comme nts GLUCOSE (test code = 2217) 92 MG/DL BUN (test code = 2208) 20 MG/DL CREATININE (test code = 2214) 1.31 MG/DL eGFR AMER. (test cod e = 83607) 53 ML/MIN/1.73 eGFR NON- AMER. (test code = 46448) 45 ML/MIN/1.73 CALC BUN/CREAT (test code = [...] code = 2219) 16 U/L CBC W/AUTO [id number] 00:00:00* Test Item Value Reference Range Interpretation [...] code = 1016) (NOTE) VAGINAL PATHOGENS DNA [id number] 00:00:00* Test Item Value Reference Range Interpretation Comme nts DIANNA SPECIES (test code = ) NEGATIVE G. VAGINALIS (test code = ) POSITIVE T. VAGINALIS (test code = ) NEGATIVE COMPREHENSIVE METABOLIC [id number] 00:00:00* Test Item Value Reference Range Interpretation Comme nts GLUCOSE (test code = 2217) 92 MG/DL BUN (test code = 2208) 20 MG/DL CREATININE (test code = 2214) 1.31 MG/DL eGFR AMER. (test cod e = 97444) 53 ML/MIN/1.73 eGFR NON- AMER. (test code = 10080) 45 ML/MIN/1.73 CALC BUN/CREAT (test code = [...] code = 2219) 16 U/L CBC W/AUTO [id number] 00:00:00* Test Item Value Reference Range Interpretation [...] (test code = 1016) (NOTE) COMPREHENSIVE METABOLIC [id number] 00:00:00* Test Item Value Reference Range Interpretation Comme nts GLUCOSE (test code = 2217) 92 MG/DL BUN (test code = 2208) 20 MG/DL CREATININE (test code = 2214) 1.31 MG/DL eGFR AMER. (test cod e = 40876) 53 ML/MIN/1.73 eGFR NON- AMER. (test code = 95208) 45 ML/MIN/1.73 CALC BUN/CREAT (test code = [...] = 2219) 16 U/L Delfino Forbes W/AUTO [id number] 00:00:00* Test Item Value Reference Range Interpretation [...] = 1016) (NOTE) Delfino OrtaVAGINAL PATHOGENS DNA [id number] 00:00:00* Test Item Value Reference Range Interpretation Comme nts DIANNA SPECIES (test code = 69170) NEGATIVE G. VAGINALIS (test code = 71085) POSITIVE T. VAGINALIS (test code = 02999) NEGATIVE Delfino OrtaVAGINAL PATHOGENS DNA [id number] 00:00:00* Test Item Value Reference Range Interpretation Comme nts DIANNA SPECIES (test code = 92438) NEGATIVE G. VAGINALIS (test code = 62109) POSITIVE T. VAGINALIS (test code = 93465) NEGATIVE Delfino OrtaCOMPREHENSIVE METABOLIC [id number] 00:00:00* Test Item Value Reference Range Interpretation Comme nts GLUCOSE (test code = 2217) 92 MG/DL BUN (test code = 2208) 20 MG/DL CREATININE (test code = 2214) 1.31 MG/DL eGFR AMER. (test cod e = 33243) 53 ML/MIN/1.73 eGFR NON- AMER. (test code = 06350) 45 ML/MIN/1.73 CALC BUN/CREAT (test code = [...] 2219) 16 U/L Delfino Schumacher YouCBC W/AUTO [id number] 00:00:00* Test Item Value Reference Range Interpretation [...] 1016) (NOTE) Delfino Schumacher YouVAGINAL PATHOGENS DNA [id number] 00:00:00* Test Item Value Reference Range Interpretation Comme nts DIANNA SPECIES (test code = ) NEGATIVE G. VAGINALIS (test code = ) POSITIVE T. VAGINALIS (test code = ) NEGATIVE Delfino OrtaCOMPREHENSIVE METABOLIC [id number] 00:00:00* Test Item Value Reference Range Interpretation Comme nts GLUCOSE (test code = 2217) 92 MG/DL BUN (test code = 2208) 20 MG/DL CREATININE (test code = 2214) 1.31 MG/DL eGFR AMER. (test cod e = 58447) 53 ML/MIN/1.73 eGFR NON- AMER. (test code = 99136) 45 ML/MIN/1.73 CALC BUN/CREAT (test code = [...] = 2219) 16 U/L Delfino OrtaCBC W/AUTO [id number] 00:00:00* Test Item Value Reference Range Interpretation [...] = 1016) (NOTE) Delfino OrtaVAGINAL PATHOGENS DNA [id number] 00:00:00* Test Item Value Reference Range Interpretation Comme nts DIANNA SPECIES (test code = ) NEGATIVE G. VAGINALIS (test code = ) POSITIVE T. VAGINALIS (test code = ) NEGATIVE Delfino Schumacher AustinCOMPREHENSIVE METABOLIC [id number] 00:00:00* Test Item Value Reference Range Interpretation Comme nts GLUCOSE (test code = 2217) 92 MG/DL BUN (test code = 2208) 20 MG/DL CREATININE (test code = 2214) 1.31 MG/DL eGFR AMER. (test cod e = 78060) 53 ML/MIN/1.73 eGFR NON- AMER. (test code = 55549) 45 ML/MIN/1.73 CALC BUN/CREAT (test code = [...] code = 2219) 16 U/L Delfino Schumacher AustinCOMPREHENSIVE METABOLIC [id number] 00:00:00* Test Item Value Reference Range Interpretation Comme nts GLUCOSE (test code = 2217) 92 MG/DL BUN (test code = 2208) 20 MG/DL CREATININE (test code = 2214) 1.31 MG/DL eGFR AMER. (test cod e = 43032) 53 ML/MIN/1.73 eGFR NON- AMER. (test code = 94731) 45 ML/MIN/1.73 CALC BUN/CREAT (test code = [...] = 2219) 16 U/L Delfino OrtaCBC W/AUTO [id number] 00:00:00* Test Item Value Reference Range Interpretation [...] = 1016) (NOTE) Delfino OrtaVAGINAL PATHOGENS DNA [id number] 00:00:00* Test Item Value Reference Range Interpretation Comme nts DIANNA SPECIES (test code = ) NEGATIVE G. VAGINALIS (test code = ) POSITIVE T. VAGINALIS (test code = ) NEGATIVE Delfino OrtaLIPID [id number] 00:00:00* Test Item Value Reference Range Interpretation Comme nts CHOLESTEROL (test code = 2210) 141 MG/DL TRIGLYCERIDES (test code = 2232) 71 MG/DL HDL CHOLESTEROL (test code = 2220) 69 MG/DL CALC LDL CHOL (test code = 2237) 58 MG/DL RISK RATIO LDL/HDL (test cod e = 2238) 0.84 RATIO Delfino OrtaCOMPREHENSIVE METABOLIC [id number] 00:00:00* Test Item Value Reference Range Interpretation Comme nts GLUCOSE (test code = 2217) 95 MG/DL BUN (test code = 2208) 21 MG/DL CREATININE (test code = 2214) 0.87 MG/DL eGFR AMER. (test cod e = 96741) 87 ML/MIN/1.73 eGFR NON- AMER. (test code = 00654) 75 ML/MIN/1.73 CALC BUN/CREAT (test code = [...] code = 2219) 8 U/L Delfino OrtaURIC [id number] 00:00:00* Test Item Value Reference Range Interpretation Comme [facility] URIC ACID (test code = 2233) 8.5 MG/DL Delfino OrtaVITAMIN [id number] 00:00:00* Test Item Value Reference Range Interpretation Comme [facility] VITAMIN B-12 (test code = 2840) 335 PG/ML Delfino OrtaCBC W/AUTO [id number] 00:00:00* Test Item Value Reference Range Interpretation [...] code = 1015) 212 K/UL Delfino Schumacher [place] [id number] 00:00:00* Test Item Value Reference Range Interpretation Comme nts CHOLESTEROL (test code = 2210) 141 MG/DL TRIGLYCERIDES (test code = 2232) 71 MG/DL HDL CHOLESTEROL (test code = 2220) 69 MG/DL CALC LDL CHOL (test code = 2237) 58 MG/DL RISK RATIO LDL/HDL (test cod e = 2238) 0.84 RATIO Delfino OrtaURIC [id number] 00:00:00* Test Item Value Reference Range Interpretation Comme nts URIC ACID (test code = 2233) 8.5 MG/DL Delfino OrtaCOMPREHENSIVE METABOLIC [id number] 00:00:00* Test Item Value Reference Range Interpretation Comme nts GLUCOSE (test code = 2217) 95 MG/DL BUN (test code = 2208) 21 MG/DL CREATININE (test code = 2214) 0.87 MG/DL eGFR AMER. (test cod e = 37017) 87 ML/MIN/1.73 eGFR NON- AMER. (test code = 30960) 75 ML/MIN/1.73 CALC BUN/CREAT (test code = [...] code = 2219) 8 U/L Delfino OrtaURIC [id number] 00:00:00* Test Item Value Reference Range Interpretation Comme nts URIC ACID (test code = 2233) 8.5 MG/DL Delfino Schumacher AustinVITAMIN [id number] 00:00:00* Test Item Value Reference Range Interpretation Comme nts VITAMIN B-12 (test code = 2840) 335 PG/ML Delfino OrtaCBC W/AUTO [id number] 00:00:00* Test Item Value Reference Range Interpretation [...] code = 1015) 212 K/UL Delfino OrtaVITAMIN [id number] 00:00:00* Test Item Value Reference Range Interpretation Comme nts VITAMIN B-12 (test code = 2840) 335 PG/ML Delfino OrtaLIPID [id number] 00:00:00* Test Item Value Reference Range Interpretation Comme nts CHOLESTEROL (test code = 2210) 141 MG/DL TRIGLYCERIDES (test code = 2232) 71 MG/DL HDL CHOLESTEROL (test code = 2220) 69 MG/DL CALC LDL CHOL (test code = 2237) 58 MG/DL RISK RATIO LDL/HDL (test cod e = 2238) 0.84 RATIO Delfino OrtaCOMPREHENSIVE METABOLIC [id number] 00:00:00* Test Item Value Reference Range Interpretation Comme nts GLUCOSE (test code = 2217) 95 MG/DL BUN (test code = 2208) 21 MG/DL CREATININE (test code = 2214) 0.87 MG/DL eGFR AMER. (test cod e = 48637) 87 ML/MIN/1.73 eGFR NON- AMER. (test code = 67994) 75 ML/MIN/1.73 CALC BUN/CREAT (test code = [...] code = 2219) 8 U/L Delfino OrtaURIC [id number] 00:00:00* Test Item Value Reference Range Interpretation Comme nts URIC ACID (test code = 2233) 8.5 MG/DL Delfino OrtaVITAMIN [id number] 00:00:00* Test Item Value Reference Range Interpretation Comme nts VITAMIN B-12 (test code = 2840) 335 PG/ML Delfino OrtaCBC W/AUTO [id number] 00:00:00* Test Item Value Reference Range Interpretation [...] code = 1015) 212 K/UL Delfino OrtaLIPID [id number] 00:00:00* Test Item Value Reference Range Interpretation Comme nts CHOLESTEROL (test code = 2210) 141 MG/DL TRIGLYCERIDES (test code = 2232) 71 MG/DL HDL CHOLESTEROL (test code = 2220) 69 MG/DL CALC LDL CHOL (test code = 2237) 58 MG/DL RISK RATIO LDL/HDL (test cod e = 2238) 0.84 RATIO Delfino OrtaCOMPREHENSIVE METABOLIC [id number] 00:00:00* Test Item Value Reference Range Interpretation Comme nts GLUCOSE (test code = 2217) 95 MG/DL BUN (test code = 2208) 21 MG/DL CREATININE (test code = 2214) 0.87 MG/DL eGFR AMER. (test cod e = 92028) 87 ML/MIN/1.73 eGFR NON- AMER. (test code = 27825) 75 ML/MIN/1.73 CALC BUN/CREAT (test code = [...] code = 2219) 8 U/L Delfino OrtaURIC [id number] 00:00:00* Test Item Value Reference Range Interpretation Comme nts URIC ACID (test code = 2233) 8.5 MG/DL Delfino OrtaVITAMIN [id number] 00:00:00* Test Item Value Reference Range Interpretation Comme nts VITAMIN B-12 (test code = 2840) 335 PG/ML Delfino OrtaCBC W/AUTO [id number] 00:00:00* Test Item Value Reference Range Interpretation [...] code = 1015) 212 K/UL Delfino OrtaLIPID [id number] 00:00:00* Test Item Value Reference Range Interpretation Comme nts CHOLESTEROL (test code = 2210) 141 MG/DL TRIGLYCERIDES (test code = 2232) 71 MG/DL HDL CHOLESTEROL (test code = 2220) 69 MG/DL CALC LDL CHOL (test code = 2237) 58 MG/DL RISK RATIO LDL/HDL (test cod e = 2238) 0.84 RATIO Delfino OrtaCOMPREHENSIVE METABOLIC [id number] 00:00:00* Test Item Value Reference Range Interpretation Comme nts GLUCOSE (test code = 2217) 95 MG/DL BUN (test code = 2208) 21 MG/DL CREATININE (test code = 2214) 0.87 MG/DL eGFR AMER. (test cod e = 67415) 87 ML/MIN/1.73 eGFR NON- AMER. (test code = 55718) 75 ML/MIN/1.73 CALC BUN/CREAT (test code = [...] code = 2219) 8 U/L Delfino OrtaURIC [id number] 00:00:00* Test Item Value Reference Range Interpretation Comme [facility] URIC ACID (test code = 2233) 8.5 MG/DL Delfino OrtaVITAMIN [id number] 00:00:00* Test Item Value Reference Range Interpretation Comme [facility] VITAMIN B-12 (test code = 2840) 335 PG/ML Delfino OrtaCBC W/AUTO [id number] 00:00:00* Test Item Value Reference Range Interpretation [...] code = 1015) 212 K/UL Delfino OrtaLIPID [id number] 00:00:00* Test Item Value Reference Range Interpretation Comme nts CHOLESTEROL (test code = 2210) 141 MG/DL TRIGLYCERIDES (test code = 2232) 71 MG/DL HDL CHOLESTEROL (test code = 2220) 69 MG/DL CALC LDL CHOL (test code = 2237) 58 MG/DL RISK RATIO LDL/HDL (test cod e = 2238) 0.84 RATIO Delfino OrtaCOMPREHENSIVE METABOLIC [id number] 00:00:00* Test Item Value Reference Range Interpretation Comme nts GLUCOSE (test code = 2217) 95 MG/DL BUN (test code = 2208) 21 MG/DL CREATININE (test code = 2214) 0.87 MG/DL eGFR AMER. (test cod e = 29211) 87 ML/MIN/1.73 eGFR NON- AMER. (test code = 90477) 75 ML/MIN/1.73 CALC BUN/CREAT (test code = [...] ALT (test code = 2219) 8 U/L Delfnio OrtaURIC [id number] 00:00:00* Test Item Value Reference Range Interpretation Comme nts URIC ACID (test code = 2233) 8.5 MG/DL Delfino OrtaVITAMIN [id number] 00:00:00* Test Item Value Reference Range Interpretation Comme nts VITAMIN B-12 (test code = 2840) 335 PG/ML Delfino OrtaCBC W/AUTO [id number] 00:00:00* Test Item Value Reference Range Interpretation [...] code = 1015) 212 K/UL Delfino OrtaLIPID [id number] 00:00:00* Test Item Value Reference Range Interpretation Comme nts CHOLESTEROL (test code = 2210) 141 MG/DL TRIGLYCERIDES (test code = 2232) 71 MG/DL HDL CHOLESTEROL (test code = 2220) 69 MG/DL CALC LDL CHOL (test code = 2237) 58 MG/DL RISK RATIO LDL/HDL (test cod e = 2238) 0.84 RATIO Delfino OrtaCOMPREHENSIVE METABOLIC [id number] 00:00:00* Test Item Value Reference Range Interpretation Comme nts GLUCOSE (test code = 2217) 95 MG/DL BUN (test code = 2208) 21 MG/DL CREATININE (test code = 2214) 0.87 MG/DL eGFR AMER. (test cod e = 78822) 87 ML/MIN/1.73 eGFR NON- AMER. (test code = 12695) 75 ML/MIN/1.73 CALC BUN/CREAT (test code = [...] code = 2219) 8 U/L Delfino OrtaURIC [id number] 00:00:00* Test Item Value Reference Range Interpretation Comme nts URIC ACID (test code = 2233) 8.5 MG/DL Delfino OrtaVITAMIN [id number] 00:00:00* Test Item Value Reference Range Interpretation Comme nts VITAMIN B-12 (test code = 2840) 335 PG/ML Delfino OrtaCBC W/AUTO [id number] 00:00:00* Test Item Value Reference Range Interpretation [...] code = 1015) 212 K/UL Delfino OrtaLIPID [id number] 00:00:00* Test Item Value Reference Range Interpretation Comme nts CHOLESTEROL (test code = 2210) 141 MG/DL TRIGLYCERIDES (test code = 2232) 71 MG/DL HDL CHOLESTEROL (test code = 2220) 69 MG/DL CALC LDL CHOL (test code = 2237) 58 MG/DL RISK RATIO LDL/HDL (test cod e = 2238) 0.84 RATIO Delfino OrtaCOMPREHENSIVE METABOLIC [id number] 00:00:00* Test Item Value Reference Range Interpretation Comme nts GLUCOSE (test code = 2217) 95 MG/DL BUN (test code = 2208) 21 MG/DL CREATININE (test code = 2214) 0.87 MG/DL eGFR AMER. (test cod e = 63192) 87 ML/MIN/1.73 eGFR NON- AMER. (test code = 52954) 75 ML/MIN/1.73 CALC BUN/CREAT (test code = 2235) 24 RATIO SODIUM (test code = 2231) 139 MEQ/L POTASSIUM (test code = 2228) 4.4 MEQ/L CHLORIDE (test code = 2215) 109 MEQ/L CARBON DIOXIDE (test code = 2206) 21 MEQ/L CALCIUM (test code = 2209) 9.4 MG/DL PROTEIN, TOTAL (test code = 222) 9.8 G/DL ALBUMIN (test code = 2201) 3.6 G/DL CALC GLOBULIN (test code = 2240) 6.2 G/DL CALC A/G RATIO (test code = 2234) 0.6 RATIO BILIRUBIN, TOTAL (test code = 2207) 0.5 MG/DL ALKALINE PHOSPHATASE (test code = 2204) 83 U/L AST (test code = 2218) 27 U/L ALT (test code = 2219) 8 U/L Delfino OrtaURIC [id number] 00:00:00* Test Item Value Reference Range Interpretation Comme [facility] URIC ACID (test code = 2233) 8.5 MG/DL Delfino OrtaVITAMIN [id number] 00:00:00* Test Item Value Reference Range Interpretation Comme [facility] VITAMIN B-12 (test code = 2840) 335 PG/ML Delfino OrtaCBC W/AUTO [id number] 00:00:00* Test Item Value Reference Range Interpretation [...] code = 1015) 212 K/UL Delfino OrtaLIPID [id number] 00:00:00* Test Item Value Reference Range Interpretation Comme nts CHOLESTEROL (test code = 2210) 141 MG/DL TRIGLYCERIDES (test code = 2232) 71 MG/DL HDL CHOLESTEROL (test code = 2220) 69 MG/DL CALC LDL CHOL (test code = 2237) 58 MG/DL RISK RATIO LDL/HDL (test cod e = 2238) 0.84 RATIO Delfnio OrtaCOMPREHENSIVE METABOLIC [id number] 00:00:00* Test Item Value Reference Range Interpretation Comme nts GLUCOSE (test code = 2217) 95 MG/DL BUN (test code = 2208) 21 MG/DL CREATININE (test code = 2214) 0.87 MG/DL eGFR AMER. (test cod e = 12787) 87 ML/MIN/1.73 eGFR NON- AMER. (test code = 50164) 75 ML/MIN/1.73 CALC BUN/CREAT (test code = [...] code = 2219) 8 U/L Delfino OrtaURIC [id number] 00:00:00* Test Item Value Reference Range Interpretation Comme nts URIC ACID (test code = 2233) 8.5 MG/DL Delfino OrtaVITAMIN [id number] 00:00:00* Test Item Value Reference Range Interpretation Comme nts VITAMIN B-12 (test code = 2840) 335 PG/ML Delfino OrtaCBC W/AUTO [id number] 00:00:00* Test Item Value Reference Range Interpretation [...] code = 1015) 212 K/UL Delfino OrtaLIPID [id number] 00:00:00* Test Item Value Reference Range Interpretation Comme nts CHOLESTEROL (test code = 2210) 141 MG/DL TRIGLYCERIDES (test code = 2232) 71 MG/DL HDL CHOLESTEROL (test code = 2220) 69 MG/DL CALC LDL CHOL (test code = 2237) 58 MG/DL RISK RATIO LDL/HDL (test cod e = 2238) 0.84 RATIO Delfino OrtaCOMPREHENSIVE METABOLIC [id number] 00:00:00* Test Item Value Reference Range Interpretation Comme nts GLUCOSE (test code = 2217) 95 MG/DL BUN (test code = 2208) 21 MG/DL CREATININE (test code = 2214) 0.87 MG/DL eGFR AMER. (test cod e = 96798) 87 ML/MIN/1.73 eGFR NON- AMER. (test code = 04455) 75 ML/MIN/1.73 CALC BUN/CREAT (test code = [...] code = 2219) 8 U/L Delfino OrtaURIC [id number] 00:00:00* Test Item Value Reference Range Interpretation Comme [facility] URIC ACID (test code = 2233) 8.5 MG/DL Delfino OrtaVITAMIN [id number] 00:00:00* Test Item Value Reference Range Interpretation Comme [facility] VITAMIN B-12 (test code = 2840) 335 PG/ML Delfino OrtaCBC W/AUTO [id number] 00:00:00* Test Item Value Reference Range Interpretation [...] code = 1015) 212 K/UL Delfino OrtaLIPID [id number] 00:00:00* Test Item Value Reference Range Interpretation Comme nts CHOLESTEROL (test code = 2210) 141 MG/DL TRIGLYCERIDES (test code = 2232) 71 MG/DL HDL CHOLESTEROL (test code = 2220) 69 MG/DL CALC LDL CHOL (test code = 2237) 58 MG/DL RISK RATIO LDL/HDL (test cod e = 2238) 0.84 RATIO Delfino OrtaCOMPREHENSIVE METABOLIC [id number] 00:00:00* Test Item Value Reference Range Interpretation Comme nts GLUCOSE (test code = 2217) 95 MG/DL BUN (test code = 2208) 21 MG/DL CREATININE (test code = 2214) 0.87 MG/DL eGFR AMER. (test cod e = 38709) 87 ML/MIN/1.73 eGFR NON- AMER. (test code = 85605) 75 ML/MIN/1.73 CALC BUN/CREAT (test code = [...] code = 2219) 8 U/L Delfino OrtaURIC [id number] 00:00:00* Test Item Value Reference Range Interpretation Comme nts URIC ACID (test code = 2233) 8.5 MG/DL Delfino OrtaVITAMIN [id number] 00:00:00* Test Item Value Reference Range Interpretation Comme nts VITAMIN B-12 (test code = 2840) 335 PG/ML Delfino OrtaCBC W/AUTO [id number] 00:00:00* Test Item Value Reference Range Interpretation [...] code = 1015) 212 K/UL Delfino OrtaLIPID [id number] 00:00:00* Test Item Value Reference Range Interpretation Comme nts CHOLESTEROL (test code = 2210) 141 MG/DL TRIGLYCERIDES (test code = 2232) 71 MG/DL HDL CHOLESTEROL (test code = 2220) 69 MG/DL CALC LDL CHOL (test code = 2237) 58 MG/DL RISK RATIO LDL/HDL (test cod e = 2238) 0.84 RATIO Delfino OrtaCOMPREHENSIVE METABOLIC [id number] 00:00:00* Test Item Value Reference Range Interpretation Comme nts GLUCOSE (test code = 2217) 95 MG/DL BUN (test code = 2208) 21 MG/DL CREATININE (test code = 2214) 0.87 MG/DL eGFR AMER. (test cod e = 58493) 87 ML/MIN/1.73 eGFR NON- AMER. (test code = 09474) 75 ML/MIN/1.73 CALC BUN/CREAT (test code = [...] code = 2219) 8 U/L Delfino OrtaURIC [id number] 00:00:00* Test Item Value Reference Range Interpretation Comme nts URIC ACID (test code = 2233) 8.5 MG/DL Delfino OrtaVITAMIN [id number] 00:00:00* Test Item Value Reference Range Interpretation Comme [facility] VITAMIN B-12 (test code = 2840) 335 PG/ML Delfino OrtaCBC W/AUTO [id number] 00:00:00* Test Item Value Reference Range Interpretation [...] code = 1015) 212 K/UL Delfino OrtaLIPID [id number] 00:00:00* Test Item Value Reference Range Interpretation Comme nts CHOLESTEROL (test code = 2210) 141 MG/DL TRIGLYCERIDES (test code = 2232) 71 MG/DL HDL CHOLESTEROL (test code = 2220) 69 MG/DL CALC LDL CHOL (test code = 2237) 58 MG/DL RISK RATIO LDL/HDL (test cod e = 2238) 0.84 RATIO Delfino OrtaCOMPREHENSIVE METABOLIC [id number] 00:00:00* Test Item Value Reference Range Interpretation Comme nts GLUCOSE (test code = 2217) 95 MG/DL BUN (test code = 2208) 21 MG/DL CREATININE (test code = 2214) 0.87 MG/DL eGFR AMER. (test cod e = 04304) 87 ML/MIN/1.73 eGFR NON- AMER. (test code = 02138) 75 ML/MIN/1.73 CALC BUN/CREAT (test code = [...] code = 2219) 8 U/L Delfino OrtaURIC [id number] 00:00:00* Test Item Value Reference Range Interpretation Comme nts URIC ACID (test code = 2233) 8.5 MG/DL Delfino OrtaVITAMIN [id number] 00:00:00* Test Item Value Reference Range Interpretation Comme [facility] VITAMIN B-12 (test code = 2840) 335 PG/ML Delfino OrtaCBC W/AUTO [id number] 00:00:00* Test Item Value Reference Range Interpretation [...] code = 1015) 212 K/UL Delfino OrtaLIPID [id number] 00:00:00* Test Item Value Reference Range Interpretation Comme nts CHOLESTEROL (test code = 2210) 141 MG/DL TRIGLYCERIDES (test code = 2232) 71 MG/DL HDL CHOLESTEROL (test code = 2220) 69 MG/DL CALC LDL CHOL (test code = 2237) 58 MG/DL RISK RATIO LDL/HDL (test cod e = 2238) 0.84 RATIO Delfino OrtaCBC W/AUTO [id number] 00:00:00* Test Item Value Reference Range Interpretation [...] COUNT (test code = 1015) 212 K/UL COMPREHENSIVE METABOLIC [id number] 00:00:00* Test Item Value Reference Range Interpretation Comme nts GLUCOSE (test code = 2217) 95 MG/DL BUN (test code = 2208) 21 MG/DL CREATININE (test code = 2214) 0.87 MG/DL eGFR AMER. (test cod e = 74999) 87 ML/MIN/1.73 eGFR NON- AMER. (test code = 46788) 75 ML/MIN/1.73 CALC BUN/CREAT (test code = [...] code = 2219) 8 U/L Delfino OrtaURIC [id number] 00:00:00* Test Item Value Reference Range Interpretation Comme [facility] URIC ACID (test code = 2233) 8.5 MG/DL Delfino OrtaVITAMIN [id number] 00:00:00* Test Item Value Reference Range Interpretation Comme [facility] VITAMIN B-12 (test code = 2840) 335 PG/ML Delfino OrtaLIPID [id number] 00:00:00* Test Item Value Reference Range Interpretation Comme nts CHOLESTEROL (test code = 2210) 141 MG/DL TRIGLYCERIDES (test code = 2232) 71 MG/DL HDL CHOLESTEROL (test code = 2220) 69 MG/DL CALC LDL CHOL (test code = 2237) 58 MG/DL RISK RATIO LDL/HDL (test cod e = 2238) 0.84 RATIO CBC W/AUTO [id number] 00:00:00* Test Item Value Reference Range Interpretation [...] = 1015) 212 K/UL Delfino OrtaCOMPREHENSIVE METABOLIC [id number] 00:00:00* Test Item Value Reference Range Interpretation Comme nts GLUCOSE (test code = 2217) 95 MG/DL BUN (test code = 2208) 21 MG/DL CREATININE (test code = 2214) 0.87 MG/DL eGFR AMER. (test cod e = 39953) 87 ML/MIN/1.73 eGFR NON- AMER. (test code = 45385) 75 ML/MIN/1.73 CALC BUN/CREAT (test code = [...] (test code = 2219) 8 U/L LIPID [id number] 00:00:00* Test Item Value Reference Range Interpretation Comme nts CHOLESTEROL (test code = 2210) 141 MG/DL TRIGLYCERIDES (test code = 2232) 71 MG/DL HDL CHOLESTEROL (test code = 2220) 69 MG/DL CALC LDL CHOL (test code = 2237) 58 MG/DL RISK RATIO LDL/HDL (test cod e = 2238) 0.84 RATIO Delfino OrtaURIC [id number] 00:00:00* Test Item Value Reference Range Interpretation Comme nts URIC ACID (test code = 2233) 8.5 MG/DL VITAMIN [id number] 00:00:00* Test Item Value Reference Range Interpretation Comme nts VITAMIN B-12 (test code = 2840) 335 PG/ML CBC W/AUTO [id number] 00:00:00* Test Item Value Reference Range Interpretation [...] (test code = 1015) 212 K/UL LIPID [id number] 00:00:00* Test Item Value Reference Range Interpretation Comme nts CHOLESTEROL (test code = 2210) 141 MG/DL TRIGLYCERIDES (test code = 2232) 71 MG/DL HDL CHOLESTEROL (test code = 2220) 69 MG/DL CALC LDL CHOL (test code = 2237) 58 MG/DL RISK RATIO LDL/HDL (test cod e = 2238) 0.84 RATIO COMPREHENSIVE METABOLIC [id number] 00:00:00* Test Item Value Reference Range Interpretation Comme nts GLUCOSE (test code = 2217) 95 MG/DL BUN (test code = 2208) 21 MG/DL CREATININE (test code = 2214) 0.87 MG/DL eGFR AMER. (test cod e = 17736) 87 ML/MIN/1.73 eGFR NON- AMER. (test code = 35816) 75 ML/MIN/1.73 CALC BUN/CREAT (test code = [...] (test code = 2219) 8 U/L URIC [id number] 00:00:00* Test Item Value Reference Range Interpretation Comme nts URIC ACID (test code = 2233) 8.5 MG/DL VITAMIN [id number] 00:00:00* Test Item Value Reference Range Interpretation Comme nts VITAMIN B-12 (test code = 2840) 335 PG/ML CBC W/AUTO [id number] 00:00:00* Test Item Value Reference Range Interpretation [...] (test code = 1015) 212 K/UL LIPID [id number] 00:00:00* Test Item Value Reference Range Interpretation Comme nts CHOLESTEROL (test code = 2210) 141 MG/DL TRIGLYCERIDES (test code = 2232) 71 MG/DL HDL CHOLESTEROL (test code = 2220) 69 MG/DL CALC LDL CHOL (test code = 2237) 58 MG/DL RISK RATIO LDL/HDL (test cod e = 2238) 0.84 RATIO COMPREHENSIVE METABOLIC [id number] 00:00:00* Test Item Value Reference Range Interpretation Comme nts GLUCOSE (test code = 2217) 95 MG/DL BUN (test code = 2208) 21 MG/DL CREATININE (test code = 2214) 0.87 MG/DL eGFR AMER. (test cod e = 97015) 87 ML/MIN/1.73 eGFR NON- AMER. (test code = 11100) 75 ML/MIN/1.73 CALC BUN/CREAT (test code = [...] (test code = 2219) 8 U/L URIC [id number] 00:00:00* Test Item Value Reference Range Interpretation Comme [facility] URIC ACID (test code = 2233) 8.5 MG/DL VITAMIN [id number] 00:00:00* Test Item Value Reference Range Interpretation Comme [facility] VITAMIN B-12 (test code = 2840) 335 PG/ML CBC W/AUTO [id number] 00:00:00* Test Item Value Reference Range Interpretation [...] (test code = 1015) 212 K/UL LIPID [id number] 00:00:00* Test Item Value Reference Range Interpretation Comme nts CHOLESTEROL (test code = 2210) 141 MG/DL TRIGLYCERIDES (test code = 2232) 71 MG/DL HDL CHOLESTEROL (test code = 2220) 69 MG/DL CALC LDL CHOL (test code = 2237) 58 MG/DL RISK RATIO LDL/HDL (test cod e = 2238) 0.84 RATIO COMPREHENSIVE METABOLIC [id number] 00:00:00* Test Item Value Reference Range Interpretation Comme nts GLUCOSE (test code = 2217) 95 MG/DL BUN (test code = 2208) 21 MG/DL CREATININE (test code = 2214) 0.87 MG/DL eGFR AMER. (test cod e = 72845) 87 ML/MIN/1.73 eGFR NON- AMER. (test code = 63534) 75 ML/MIN/1.73 CALC BUN/CREAT (test code = [...] (test code = 2219) 8 U/L URIC [id number] 00:00:00* Test Item Value Reference Range Interpretation Comme nts URIC ACID (test code = 2233) 8.5 MG/DL VITAMIN [id number] 00:00:00* Test Item Value Reference Range Interpretation Comme nts VITAMIN B-12 (test code = 2840) 335 PG/ML CBC W/AUTO [id number] 00:00:00* Test Item Value Reference Range Interpretation [...] 1015) 212 K/UL Delfino Schumacher AustinCOMPREHENSIVE METABOLIC [id number] 00:00:00* Test Item Value Reference Range Interpretation Comme nts GLUCOSE (test code = 2217) 95 MG/DL BUN (test code = 2208) 21 MG/DL CREATININE (test code = 2214) 0.87 MG/DL eGFR AMER. (test cod e = 82249) 87 ML/MIN/1.73 eGFR NON- AMER. (test code = 14839) 75 ML/MIN/1.73 CALC BUN/CREAT (test code = [...] code = 2219) 8 U/L Delfino OrtaURIC [id number] 00:00:00* Test Item Value Reference Range Interpretation Comme [facility] URIC ACID (test code = 2233) 8.5 MG/DL Delfino OrtaVITAMIN [id number] 00:00:00* Test Item Value Reference Range Interpretation Comme [facility] VITAMIN B-12 (test code = 2840) 335 PG/ML Delfino OrtaCBC W/AUTO [id number] 00:00:00* Test Item Value Reference Range Interpretation [...] code = 1015) 212 K/UL Delfino OrtaLIPID [id number] 00:00:00* Test Item Value Reference Range Interpretation Comme nts CHOLESTEROL (test code = 2210) 141 MG/DL TRIGLYCERIDES (test code = 2232) 71 MG/DL HDL CHOLESTEROL (test code = 2220) 69 MG/DL CALC LDL CHOL (test code = 2237) 58 MG/DL RISK RATIO LDL/HDL (test cod e = 2238) 0.84 RATIO Delfino OrtaCOMPREHENSIVE METABOLIC [id number] 00:00:00* Test Item Value Reference Range Interpretation Comme nts GLUCOSE (test code = 2217) 95 MG/DL BUN (test code = 2208) 21 MG/DL CREATININE (test code = 2214) 0.87 MG/DL eGFR AMER. (test cod e = 30995) 87 ML/MIN/1.73 eGFR NON- AMER. (test code = 30912) 75 ML/MIN/1.73 CALC BUN/CREAT (test code = [...] code = 2219) 8 U/L Delfino OrtaURIC [id number] 00:00:00* Test Item Value Reference Range Interpretation Comme [facility] URIC ACID (test code = 2233) 8.5 MG/DL Delfino OrtaVITAMIN [id number] 00:00:00* Test Item Value Reference Range Interpretation Comme [facility] VITAMIN B-12 (test code = 2840) 335 PG/ML Delfino OrtaCBC W/AUTO [id number] 00:00:00* Test Item Value Reference Range Interpretation Comme [facility] WBC (test code [...] = 1015) 212 K/UL Delfino Schumacher AustinLIPID [id number] 00:00:00* Test Item Value Reference Range Interpretation Comme nts CHOLESTEROL (test code = 2210) 141 MG/DL TRIGLYCERIDES (test code = 2232) 71 MG/DL HDL CHOLESTEROL (test code = 2220) 69 MG/DL CALC LDL CHOL (test code = 2237) 58 MG/DL RISK RATIO LDL/HDL (test cod e = 2238) 0.84 RATIO Delfino OrtaLIPID [id number] 00:00:00* Test Item Value Reference Range Interpretation Comme nts CHOLESTEROL (test code = 2210) 141 MG/DL TRIGLYCERIDES (test code = 2232) 71 MG/DL HDL CHOLESTEROL (test code = 2220) 69 MG/DL CALC LDL CHOL (test code = 2237) 58 MG/DL RISK RATIO LDL/HDL (test cod e = 2238) 0.84 RATIO Delfino OrtaCOMPREHENSIVE METABOLIC [id number] 00:00:00* Test Item Value Reference Range Interpretation Comme nts GLUCOSE (test code = 2217) 95 MG/DL BUN (test code = 2208) 21 MG/DL CREATININE (test code = 2214) 0.87 MG/DL eGFR AMER. (test cod e = 84683) 87 ML/MIN/1.73 eGFR NON- AMER. (test code = 95489) 75 ML/MIN/1.73 CALC BUN/CREAT (test code = [...] code = 2219) 8 U/L Delfino OrtaURIC [id number] 00:00:00* Test Item Value Reference Range Interpretation Comme [facility] URIC ACID (test code = 2233) 8.5 MG/DL Delfino OrtaVITAMIN [id number] 00:00:00* Test Item Value Reference Range Interpretation Comme [facility] VITAMIN B-12 (test code = 2840) 335 PG/ML Delfino OrtaCBC W/AUTO [id number] 00:00:00* Test Item Value Reference Range Interpretation [...] code = 1015) 212 K/UL Delfino OrtaLIPID [id number] 00:00:00* Test Item Value Reference Range Interpretation Comme nts CHOLESTEROL (test code = 2210) 141 MG/DL TRIGLYCERIDES (test code = 2232) 71 MG/DL HDL CHOLESTEROL (test code = 2220) 69 MG/DL CALC LDL CHOL (test code = 2237) 58 MG/DL RISK RATIO LDL/HDL (test cod e = 2238) 0.84 RATIO Delfino OrtaCOMPREHENSIVE METABOLIC [id number] 00:00:00* Test Item Value Reference Range Interpretation Comme nts GLUCOSE (test code = 2217) 95 MG/DL BUN (test code = 2208) 21 MG/DL CREATININE (test code = 2214) 0.87 MG/DL eGFR AMER. (test cod e = 00558) 87 ML/MIN/1.73 eGFR NON- AMER. (test code = 57927) 75 ML/MIN/1.73 CALC BUN/CREAT (test code = [...] = 2219) 8 U/L Delfino Schumacher AustinURIC [id number] 00:00:00* Test Item Value Reference Range Interpretation Comme [facility] URIC ACID (test code = 2233) 8.5 MG/DL Delfino Schumacher [place] [id number] 00:00:00* Test Item Value Reference Range Interpretation Comme [facility] VITAMIN B-12 (test code = 2840) 335 PG/ML Delfino OrtaCOMPREHENSIVE METABOLIC [id number] 00:00:00* Test Item Value Reference Range Interpretation Comme nts GLUCOSE (test code = 2217) 95 MG/DL BUN (test code = 2208) 21 MG/DL CREATININE (test code = 2214) 0.87 MG/DL eGFR AMER. (test cod e = 22705) 87 ML/MIN/1.73 eGFR NON- AMER. (test code = 59646) 75 ML/MIN/1.73 CALC BUN/CREAT (test code = [...] (test code = 2219) 8 U/L Delfino Endy YouCBC W/AUTO [id number] 00:00:00* Test Item Value Reference Range Interpretation [...] 1015) 212 K/UL Delfino Schumacher YouCD4/CD8 LYMPHOCYTE [id number] 00:00:00* Test Item Value Reference Range Interpretation Comme nts ABSOLUTE LYMPHOCYTES (test c ode = 14082) 807 PERUL PERCENT CD4 (test code = 13293) 13.1 % ABSOLUTE CD4 (test code = 95538) 105 PERUL PERCENT CD8 (test code = 88833) 61.6 % ABSOLUTE CD8 (test code = 86393) 497 PERUL CD4/CD8 RATIO (test code = 39517) 0.21 Delfino Schumacher AustinCD4/CD8 LYMPHOCYTE [id number] 00:00:00* Test Item Value Reference Range Interpretation Comme nts ABSOLUTE LYMPHOCYTES (test c ode = 54602) 807 PERUL PERCENT CD4 (test code = 90661) 13.1 % ABSOLUTE CD4 (test code = 30329) 105 PERUL PERCENT CD8 (test code = 66277) 61.6 % ABSOLUTE CD8 (test code = 96598) 497 PERUL CD4/CD8 RATIO (test code = 84571) 0.21 Delfino Schumacher AustinCD4/CD8 LYMPHOCYTE [id number] 00:00:00* Test Item Value Reference Range Interpretation Comme nts ABSOLUTE LYMPHOCYTES (test c ode = 41709) 807 PERUL PERCENT CD4 (test code = 19839) 13.1 % ABSOLUTE CD4 (test code = 80654) 105 PERUL PERCENT CD8 (test code = 54920) 61.6 % ABSOLUTE CD8 (test code = 37122) 497 PERUL CD4/CD8 RATIO (test code = 90178) 0.21 Delfino Schumacher AustinCD4/CD8 LYMPHOCYTE [id number] 00:00:00* Test Item Value Reference Range Interpretation Comme nts ABSOLUTE LYMPHOCYTES (test c ode = 97538) 807 PERUL PERCENT CD4 (test code = 19856) 13.1 % ABSOLUTE CD4 (test code = 20660) 105 PERUL PERCENT CD8 (test code = 02018) 61.6 % ABSOLUTE CD8 (test code = 24114) 497 PERUL CD4/CD8 RATIO (test code = 79984) 0.21 Delfino Schumacher AustinCD4/CD8 LYMPHOCYTE [id number] 00:00:00* Test Item Value Reference Range Interpretation Comme nts ABSOLUTE LYMPHOCYTES (test c ode = 58624) 807 PERUL PERCENT CD4 (test code = 18605) 13.1 % ABSOLUTE CD4 (test code = 22358) 105 PERUL PERCENT CD8 (test code = 56618) 61.6 % ABSOLUTE CD8 (test code = 74190) 497 PERUL CD4/CD8 RATIO (test code = 62407) 0.21 Delfino Schumacher AustinCD4/CD8 LYMPHOCYTE [id number] 00:00:00* Test Item Value Reference Range Interpretation Comme nts ABSOLUTE LYMPHOCYTES (test c ode = 00627) 807 PERUL PERCENT CD4 (test code = 03069) 13.1 % ABSOLUTE CD4 (test code = 39811) 105 PERUL PERCENT CD8 (test code = 73159) 61.6 % ABSOLUTE CD8 (test code = 88649) 497 PERUL CD4/CD8 RATIO (test code = 82250) 0.21 Delfino Schumacher AustinCD4/CD8 LYMPHOCYTE [id number] 00:00:00* Test Item Value Reference Range Interpretation Comme nts ABSOLUTE LYMPHOCYTES (test c ode = 05082) 807 PERUL PERCENT CD4 (test code = 41427) 13.1 % ABSOLUTE CD4 (test code = 34290) 105 PERUL PERCENT CD8 (test code = 47150) 61.6 % ABSOLUTE CD8 (test code = 15748) 497 PERUL CD4/CD8 RATIO (test code = 41420) 0.21 Delfino Schumacher AustinCD4/CD8 LYMPHOCYTE [id number] 00:00:00* Test Item Value Reference Range Interpretation Comme nts ABSOLUTE LYMPHOCYTES (test c ode = 48043) 807 PERUL PERCENT CD4 (test code = 51691) 13.1 % ABSOLUTE CD4 (test code = 18918) 105 PERUL PERCENT CD8 (test code = 13773) 61.6 % ABSOLUTE CD8 (test code = 88397) 497 PERUL CD4/CD8 RATIO (test code = 84468) 0.21 Delfino Schumacher AustinCD4/CD8 LYMPHOCYTE [id number] 00:00:00* Test Item Value Reference Range Interpretation Comme nts ABSOLUTE LYMPHOCYTES (test c ode = 87083) 807 PERUL PERCENT CD4 (test code = 15357) 13.1 % ABSOLUTE CD4 (test code = 06448) 105 PERUL PERCENT CD8 (test code = 31349) 61.6 % ABSOLUTE CD8 (test code = 51140) 497 PERUL CD4/CD8 RATIO (test code = 61139) 0.21 Delfino Schumacher AustinCD4/CD8 LYMPHOCYTE [id number] 00:00:00* Test Item Value Reference Range Interpretation Comme nts ABSOLUTE LYMPHOCYTES (test c ode = 58724) 807 PERUL PERCENT CD4 (test code = 35308) 13.1 % ABSOLUTE CD4 (test code = 38618) 105 PERUL PERCENT CD8 (test code = 67347) 61.6 % ABSOLUTE CD8 (test code = 79024) 497 PERUL CD4/CD8 RATIO (test code = 04599) 0.21 Delfino Schumacher AustinCD4/CD8 LYMPHOCYTE [id number] 00:00:00* Test Item Value Reference Range Interpretation Comme nts ABSOLUTE LYMPHOCYTES (test c ode = 04775) 807 PERUL PERCENT CD4 (test code = 81653) 13.1 % ABSOLUTE CD4 (test code = 54511) 105 PERUL PERCENT CD8 (test code = 57135) 61.6 % ABSOLUTE CD8 (test code = 84472) 497 PERUL CD4/CD8 RATIO (test code = 78034) 0.21 Delfino Schumacher AustinCD4/CD8 LYMPHOCYTE [id number] 00:00:00* Test Item Value Reference Range Interpretation Comme nts ABSOLUTE LYMPHOCYTES (test c ode = 55796) 807 PERUL PERCENT CD4 (test code = 05200) 13.1 % ABSOLUTE CD4 (test code = 65311) 105 PERUL PERCENT CD8 (test code = 50506) 61.6 % ABSOLUTE CD8 (test code = 40735) 497 PERUL CD4/CD8 RATIO (test code = 39499) 0.21 Delfino Schumacher AustinCD4/CD8 LYMPHOCYTE [id number] 00:00:00* Test Item Value Reference Range Interpretation Comme nts ABSOLUTE LYMPHOCYTES (test c ode = 92794) 807 PERUL PERCENT CD4 (test code = 19482) 13.1 % ABSOLUTE CD4 (test code = 00460) 105 PERUL PERCENT CD8 (test code = 24346) 61.6 % ABSOLUTE CD8 (test code = 90356) 497 PERUL CD4/CD8 RATIO (test code = 54550) 0.21 Delfino Schumacher AustinCD4/CD8 LYMPHOCYTE [id number] 00:00:00* Test Item Value Reference Range Interpretation Comme nts ABSOLUTE LYMPHOCYTES (test c ode = 46052) 807 PERUL PERCENT CD4 (test code = 35750) 13.1 % ABSOLUTE CD4 (test code = 58868) 105 PERUL PERCENT CD8 (test code = 90926) 61.6 % ABSOLUTE CD8 (test code = 38744) 497 PERUL CD4/CD8 RATIO (test code = 83422) 0.21 Delfino Schumacher AustinCD4/CD8 LYMPHOCYTE [id number] 00:00:00* Test Item Value Reference Range Interpretation Comme nts ABSOLUTE LYMPHOCYTES (test c ode = 31381) 807 PERUL PERCENT CD4 (test code = 79921) 13.1 % ABSOLUTE CD4 (test code = 32711) 105 PERUL PERCENT CD8 (test code = 53904) 61.6 % ABSOLUTE CD8 (test code = 40620) 497 PERUL CD4/CD8 RATIO (test code = 09809) 0.21 CD4/CD8 LYMPHOCYTE [id number] 00:00:00* Test Item Value Reference Range Interpretation Comme nts ABSOLUTE LYMPHOCYTES (test c ode = 85623) 807 PERUL PERCENT CD4 (test code = 16576) 13.1 % ABSOLUTE CD4 (test code = 93515) 105 PERUL PERCENT CD8 (test code = 18312) 61.6 % ABSOLUTE CD8 (test code = 96251) 497 PERUL CD4/CD8 RATIO (test code = 84363) 0.21 Delfino F AustinCD4/CD8 LYMPHOCYTE [id number] 00:00:00* Test Item Value Reference Range Interpretation Comme nts ABSOLUTE LYMPHOCYTES (test c ode = 32369) 807 PERUL PERCENT CD4 (test code = 17118) 13.1 % ABSOLUTE CD4 (test code = 72393) 105 PERUL PERCENT CD8 (test code = 64423) 61.6 % ABSOLUTE CD8 (test code = 81761) 497 PERUL CD4/CD8 RATIO (test code = 92899) 0.21 CD4/CD8 LYMPHOCYTE [id number] 00:00:00* Test Item Value Reference Range Interpretation Comme nts ABSOLUTE LYMPHOCYTES (test c ode = 29187) 807 PERUL PERCENT CD4 (test code = 15230) 13.1 % ABSOLUTE CD4 (test code = 15492) 105 PERUL PERCENT CD8 (test code = 08824) 61.6 % ABSOLUTE CD8 (test code = 86592) 497 PERUL CD4/CD8 RATIO (test code = 27242) 0.21 CD4/CD8 LYMPHOCYTE [id number] 00:00:00* Test Item Value Reference Range Interpretation Comme nts ABSOLUTE LYMPHOCYTES (test c ode = 98760) 807 PERUL PERCENT CD4 (test code = 14676) 13.1 % ABSOLUTE CD4 (test code = 19633) 105 PERUL PERCENT CD8 (test code = 12199) 61.6 % ABSOLUTE CD8 (test code = 90402) 497 PERUL CD4/CD8 RATIO (test code = 24631) 0.21 CD4/CD8 LYMPHOCYTE [id number] 00:00:00* Test Item Value Reference Range Interpretation Comme nts ABSOLUTE LYMPHOCYTES (test c ode = 21800) 807 PERUL PERCENT CD4 (test code = 98400) 13.1 % ABSOLUTE CD4 (test code = 93595) 105 PERUL PERCENT CD8 (test code = 97323) 61.6 % ABSOLUTE CD8 (test code = 53490) 497 PERUL CD4/CD8 RATIO (test code = 11967) 0.21 Delfino Schumacher AustinCD4/CD8 LYMPHOCYTE [id number] 00:00:00* Test Item Value Reference Range Interpretation Comme nts ABSOLUTE LYMPHOCYTES (test c ode = 64394) 807 PERUL PERCENT CD4 (test code = 30850) 13.1 % ABSOLUTE CD4 (test code = 08498) 105 PERUL PERCENT CD8 (test code = 49006) 61.6 % ABSOLUTE CD8 (test code = 07934) 497 PERUL CD4/CD8 RATIO (test code = 32481) 0.21 Delfino Schumacher AustinCD4/CD8 LYMPHOCYTE [id number] 00:00:00* Test Item Value Reference Range Interpretation Comme nts ABSOLUTE LYMPHOCYTES (test c ode = 73561) 807 PERUL PERCENT CD4 (test code = 74213) 13.1 % ABSOLUTE CD4 (test code = 72521) 105 PERUL PERCENT CD8 (test code = 01610) 61.6 % ABSOLUTE CD8 (test code = 97727) 497 PERUL CD4/CD8 RATIO (test code = 82863) 0.21 Delfino Schumacher AustinCD4/CD8 LYMPHOCYTE [id number] 00:00:00* Test Item Value Reference Range Interpretation Comme nts ABSOLUTE LYMPHOCYTES (test c ode = 30822) 807 PERUL PERCENT CD4 (test code = 11280) 13.1 % ABSOLUTE CD4 (test code = 86142) 105 PERUL PERCENT CD8 (test code = 57067) 61.6 % ABSOLUTE CD8 (test code = 61509) 497 PERUL CD4/CD8 RATIO (test code = 65536) 0.21 Delfino Schumacher AustinVITAMIN [id number] 00:00:00* Test Item Value Reference Range Interpretation Comme nts VITAMIN B-12 (test code = 2840) 358 PG/ML Delfino Schumacher AustinVITAMIN [id number] 00:00:00* Test Item Value Reference Range Interpretation Comme nts VITAMIN B-12 (test code = 2840) 358 PG/ML Delfino Schumacher AustinVITAMIN [id number] 00:00:00* Test Item Value Reference Range Interpretation Comme nts VITAMIN B-12 (test code = 2840) 358 PG/ML Delfino Schumacher AustinVITAMIN [id number] 00:00:00* Test Item Value Reference Range Interpretation Comme nts VITAMIN B-12 (test code = 2840) 358 PG/ML Delfino Schumacher AustinVITAMIN [id number] 00:00:00* Test Item Value Reference Range Interpretation Comme nts VITAMIN B-12 (test code = 2840) 358 PG/ML Delfino Schumacher AustinVITAMIN [id number] 00:00:00* Test Item Value Reference Range Interpretation Comme nts VITAMIN B-12 (test code = 2840) 358 PG/ML Delfino Schumacher AustinVITAMIN [id number] 00:00:00* Test Item Value Reference Range Interpretation Comme nts VITAMIN B-12 (test code = 2840) 358 PG/ML Delfino Schumacher AustinVITAMIN [id number] 00:00:00* Test Item Value Reference Range Interpretation Comme nts VITAMIN B-12 (test code = 2840) 358 PG/ML Delfino Schumacher AustinVITAMIN [id number] 00:00:00* Test Item Value Reference Range Interpretation Comme nts VITAMIN B-12 (test code = 2840) 358 PG/ML Delfino Schumacher AustinVITAMIN [id number] 00:00:00* Test Item Value Reference Range Interpretation Comme nts VITAMIN B-12 (test code = 2840) 358 PG/ML Delfino Schumacher AustinVITAMIN [id number] 00:00:00* Test Item Value Reference Range Interpretation Comme nts VITAMIN B-12 (test code = 2840) 358 PG/ML Delfino Schumacher AustinVITAMIN [id number] 00:00:00* Test Item Value Reference Range Interpretation Comme nts VITAMIN B-12 (test code = 2840) 358 PG/ML Delfino Schumacher AustinVITAMIN [id number] 00:00:00* Test Item Value Reference Range Interpretation Comme nts VITAMIN B-12 (test code = 2840) 358 PG/ML Delfino Schumacher AustinVITAMIN [id number] 00:00:00* Test Item Value Reference Range Interpretation Comme nts VITAMIN B-12 (test code = 2840) 358 PG/ML VITAMIN [id number] 00:00:00* Test Item Value Reference Range Interpretation Comme nts VITAMIN B-12 (test code = 2840) 358 PG/ML Delfino Schumacher AustinVITAMIN [id number] 00:00:00* Test Item Value Reference Range Interpretation Comme nts VITAMIN B-12 (test code = 2840) 358 PG/ML Delfino Schumacher AustinVITAMIN [id number] 00:00:00* Test Item Value Reference Range Interpretation Comme nts VITAMIN B-12 (test code = 2840) 358 PG/ML VITAMIN [id number] 00:00:00* Test Item Value Reference Range Interpretation Comme nts VITAMIN B-12 (test code = 2840) 358 PG/ML VITAMIN [id number] 00:00:00* Test Item Value Reference Range Interpretation Comme nts VITAMIN B-12 (test code = 2840) 358 PG/ML VITAMIN [id number] 00:00:00* Test Item Value Reference Range Interpretation Comme nts VITAMIN B-12 (test code = 2840) 358 PG/ML Delfino Schumacher AustinVITAMIN [id number] 00:00:00* Test Item Value Reference Range Interpretation Comme nts VITAMIN B-12 (test code = 2840) 358 PG/ML Delfino Schumacher AustinVITAMIN [id number] 00:00:00* Test Item Value Reference Range Interpretation Comme nts VITAMIN B-12 (test code = 2840) 358 PG/ML Delfino Schumacher AustinVITAMIN [id number] 00:00:00* Test Item Value Reference Range Interpretation Comme nts VITAMIN B-12 (test code = 2840) 358 PG/ML Delfino OrtaVITAMIN B 12 AND FOLIC ACID [...] 32 UG/DL UNSATURATED IBC (test code = 17876) 326 UG/DL CALC TOTAL IBC (test code [...] 32 UG/DL UNSATURATED IBC (test code = 90910) 326 UG/DL CALC TOTAL IBC (test code [...] 32 UG/DL UNSATURATED IBC (test code = 24199) 326 UG/DL CALC TOTAL IBC (test code [...] 32 UG/DL UNSATURATED IBC (test code = 61581) 326 UG/DL CALC TOTAL IBC (test code = 7) 358 UG/DL CALC % IRON SAT (test code = 9) 9 % Delfino OrtaFERRITIN [ADDED]2018-09-09 00:00:00* Test [...] 32 UG/DL UNSATURATED IBC (test code = 03508) 326 UG/DL CALC TOTAL IBC (test code [...] K/UL COMMENTS (test code = 1016) (NOTE) Deflino OrtaVITAMIN B 12 AND FOLIC ACID [ADDED]2018-09-09 [...] 32 UG/DL UNSATURATED IBC (test code = 38513) 326 UG/DL CALC TOTAL IBC (test code [...] 32 UG/DL UNSATURATED IBC (test code = 11581) 326 UG/DL CALC TOTAL IBC (test code [...] 32 UG/DL UNSATURATED IBC (test code = 68828) 326 UG/DL CALC TOTAL IBC (test code = 2077) 358 UG/DL CALC % IRON SAT (test code = 2079) 9 % Delfino Endy AustinFERRITIN [ADDED]2018-09-09 00:00:00* Test Item Value Reference [...] 32 UG/DL UNSATURATED IBC (test code = 48151) 326 UG/DL CALC TOTAL IBC (test code [...] 32 UG/DL UNSATURATED IBC (test code = 04329) 326 UG/DL CALC TOTAL IBC (test code [...] 32 UG/DL UNSATURATED IBC (test code = 21506) 326 UG/DL CALC TOTAL IBC (test code [...] 32 UG/DL UNSATURATED IBC (test code = 65399) 326 UG/DL CALC TOTAL IBC (test code [...] 32 UG/DL UNSATURATED IBC (test code = 20162) 326 UG/DL CALC TOTAL IBC (test code [...] 32 UG/DL UNSATURATED IBC (test code = 11353) 326 UG/DL CALC TOTAL IBC (test code = 2077) 358 UG/DL CALC % IRON SAT (test code = 2079) 9 % Delfino OrtaCBC W/AUTO DIFF WITH [...] code = 4936) 298 MG/DL Delfino Endy AustinVITAMIN B 12 AND FOLIC [...] COMMENTS (test code = 1016) (NOTE) Delfino KrauseN BINDING CAPACITY AND IRON AND % SATURATION [ADDED] 2018-09-09 00:00:00* Test Item Value Reference Range Interpretation Comme nts IRON, SERUM (test code = 2222) 32 UG/DL UNSATURATED IBC (test code = 09135) 326 UG/DL CALC TOTAL IBC (test code [...] 32 UG/DL UNSATURATED IBC (test code = 05589) 326 UG/DL CALC TOTAL IBC (test code [...] 32 UG/DL UNSATURATED IBC (test code = 50140) 326 UG/DL CALC TOTAL IBC (test code [...] 32 UG/DL UNSATURATED IBC (test code = 88450) 326 UG/DL CALC TOTAL IBC (test code [...] 32 UG/DL UNSATURATED IBC (test code = 00102) 326 UG/DL CALC TOTAL IBC (test code [...] COMMENTS (test code = 1016) (NOTE) Delfino rOtaCBC W/AUTO DIFF WITH PLATELETS [ADDED]2018-09-09 00:00:00* Test [...] 32 UG/DL UNSATURATED IBC (test code = 38310) 326 UG/DL CALC TOTAL IBC (test code [...] (test code = 2695) 9.9 UG/L Delfino rOtaIRON BINDING CAPACITY AND IRON AND % SATURATION [ADDED] 2018-09-09 00:00:00* Test Item Value Reference Range Interpretation Comme nts IRON, SERUM (test code = 2222) 32 UG/DL UNSATURATED IBC (test code = 55717) 326 UG/DL CALC TOTAL IBC (test code [...] 32 UG/DL UNSATURATED IBC (test code = 73447) 326 UG/DL CALC TOTAL IBC (test code [...] 32 UG/DL UNSATURATED IBC (test code = 47084) 326 UG/DL CALC TOTAL IBC (test code = 7) 358 UG/DL CALC % IRON SAT (test code = 9) 9 % Delfino Schumacher AustinCBC W/AUTO [id number] 00:00:00* Test Item Value Reference Range Interpretation [...] 1015) 230 K/UL Delfino Schumacher AustinCOMPREHENSIVE METABOLIC [id number] 00:00:00* Test Item Value Reference Range Interpretation Comme nts GLUCOSE (test code = 2217) 84 MG/DL BUN (test code = 2208) 12 MG/DL CREATININE (test code = 2214) 1.02 MG/DL eGFR AMER. (test cod e = 00450) 72 ML/MIN/1.73 eGFR NON- AMER. (test code = 86022) 62 ML/MIN/1.73 CALC BUN/CREAT (test code = [...] = 2219) 9 U/L Delfino Schumacher YouURIC [id number] 00:00:00* Test Item Value Reference Range Interpretation Comme nts URIC ACID (test code = 2233) 7.8 MG/DL Delfino Endy YouCOMPREHENSIVE METABOLIC [id number] 00:00:00* Test Item Value Reference Range Interpretation Comme nts GLUCOSE (test code = 2217) 84 MG/DL BUN (test code = 2208) 12 MG/DL CREATININE (test code = 2214) 1.02 MG/DL eGFR AMER. (test cod e = 42308) 72 ML/MIN/1.73 eGFR NON- AMER. (test code = 71678) 62 ML/MIN/1.73 CALC BUN/CREAT (test code = [...] = 2219) 9 U/L Delfino OrtaCBC W/AUTO [id number] 00:00:00* Test Item Value Reference Range Interpretation [...] = 1015) 230 K/UL Delfino OrtaCOMPREHENSIVE METABOLIC [id number] 00:00:00* Test Item Value Reference Range Interpretation Comme nts GLUCOSE (test code = 2217) 84 MG/DL BUN (test code = 2208) 12 MG/DL CREATININE (test code = 2214) 1.02 MG/DL eGFR AMER. (test cod e = 95767) 72 ML/MIN/1.73 eGFR NON- AMER. (test code = 20900) 62 ML/MIN/1.73 CALC BUN/CREAT (test code = [...] code = 2219) 9 U/L Delfino OrtaURIC [id number] 00:00:00* Test Item Value Reference Range Interpretation Comme nts URIC ACID (test code = 2233) 7.8 MG/DL Delfino OrtaCBC W/AUTO [id number] 00:00:00* Test Item Value Reference Range Interpretation [...] = 1015) 230 K/UL Delfino OrtaCOMPREHENSIVE METABOLIC [id number] 00:00:00* Test Item Value Reference Range Interpretation Comme nts GLUCOSE (test code = 2217) 84 MG/DL BUN (test code = 2208) 12 MG/DL CREATININE (test code = 2214) 1.02 MG/DL eGFR AMER. (test cod e = 01681) 72 ML/MIN/1.73 eGFR NON- AMER. (test code = 50547) 62 ML/MIN/1.73 CALC BUN/CREAT (test code = [...] code = 2219) 9 U/L Delfino OrtaURIC [id number] 00:00:00* Test Item Value Reference Range Interpretation Comme carlito URIC ACID (test code = 2233) 7.8 MG/DL Delfino OrtaCBC W/AUTO [id number] 00:00:00* Test Item Value Reference Range Interpretation [...] = 1015) 230 K/UL Delfino OrtaCOMPREHENSIVE METABOLIC [id number] 00:00:00* Test Item Value Reference Range Interpretation Comme nts GLUCOSE (test code = 2217) 84 MG/DL BUN (test code = 2208) 12 MG/DL CREATININE (test code = 2214) 1.02 MG/DL eGFR AMER. (test cod e = 80594) 72 ML/MIN/1.73 eGFR NON- AMER. (test code = 29866) 62 ML/MIN/1.73 CALC BUN/CREAT (test code = [...] code = 2219) 9 U/L Delfino OrtaURIC [id number] 00:00:00* Test Item Value Reference Range Interpretation Comme nts URIC ACID (test code = 2233) 7.8 MG/DL Delfino OrtaCBC W/AUTO [id number] 00:00:00* Test Item Value Reference Range Interpretation [...] = 1015) 230 K/UL Delfino OrtaCOMPREHENSIVE METABOLIC [id number] 00:00:00* Test Item Value Reference Range Interpretation Comme nts GLUCOSE (test code = 2217) 84 MG/DL BUN (test code = 2208) 12 MG/DL CREATININE (test code = 2214) 1.02 MG/DL eGFR AMER. (test cod e = 10339) 72 ML/MIN/1.73 eGFR NON- AMER. (test code = 22791) 62 ML/MIN/1.73 CALC BUN/CREAT (test code = [...] code = 2219) 9 U/L Delfino OrtaURIC [id number] 00:00:00* Test Item Value Reference Range Interpretation Comme nts URIC ACID (test code = 2233) 7.8 MG/DL Delfino OrtaCBC W/AUTO [id number] 00:00:00* Test Item Value Reference Range Interpretation [...] = 1015) 230 K/UL Delfino OrtaCOMPREHENSIVE METABOLIC [id number] 00:00:00* Test Item Value Reference Range Interpretation Comme nts GLUCOSE (test code = 2217) 84 MG/DL BUN (test code = 2208) 12 MG/DL CREATININE (test code = 2214) 1.02 MG/DL eGFR AMER. (test cod e = 23412) 72 ML/MIN/1.73 eGFR NON- AMER. (test code = 17493) 62 ML/MIN/1.73 CALC BUN/CREAT (test code = [...] code = 2219) 9 U/L Delfino OrtaURIC [id number] 00:00:00* Test Item Value Reference Range Interpretation Comme nts URIC ACID (test code = 2233) 7.8 MG/DL Delfino OrtaCBC W/AUTO [id number] 00:00:00* Test Item Value Reference Range Interpretation [...] 1015) 230 K/UL Delfino Schumacher YouCOMPREHENSIVE METABOLIC [id number] 00:00:00* Test Item Value Reference Range Interpretation Comme nts GLUCOSE (test code = 2217) 84 MG/DL BUN (test code = 2208) 12 MG/DL CREATININE (test code = 2214) 1.02 MG/DL eGFR AMER. (test cod e = 25594) 72 ML/MIN/1.73 eGFR NON- AMER. (test code = 49710) 62 ML/MIN/1.73 CALC BUN/CREAT (test code = [...] code = 2219) 9 U/L Delfino OrtaURIC [id number] 00:00:00* Test Item Value Reference Range Interpretation Comme nts URIC ACID (test code = 2233) 7.8 MG/DL Delfino OrtaCBC W/AUTO [id number] 00:00:00* Test Item Value Reference Range Interpretation [...] = 1015) 230 K/UL Delfino OrtaCOMPREHENSIVE METABOLIC [id number] 00:00:00* Test Item Value Reference Range Interpretation Comme nts GLUCOSE (test code = 2217) 84 MG/DL BUN (test code = 2208) 12 MG/DL CREATININE (test code = 2214) 1.02 MG/DL eGFR AMER. (test cod e = 75783) 72 ML/MIN/1.73 eGFR NON- AMER. (test code = 88073) 62 ML/MIN/1.73 CALC BUN/CREAT (test code = [...] code = 2219) 9 U/L Delfino OrtaURIC [id number] 00:00:00* Test Item Value Reference Range Interpretation Comme nts URIC ACID (test code = 2233) 7.8 MG/DL Delfino OrtaCBC W/AUTO [id number] 00:00:00* Test Item Value Reference Range Interpretation [...] = 1015) 230 K/UL Delfino OrtaCOMPREHENSIVE METABOLIC [id number] 00:00:00* Test Item Value Reference Range Interpretation Comme nts GLUCOSE (test code = 2217) 84 MG/DL BUN (test code = 2208) 12 MG/DL CREATININE (test code = 2214) 1.02 MG/DL eGFR AMER. (test cod e = 22865) 72 ML/MIN/1.73 eGFR NON- AMER. (test code = 37017) 62 ML/MIN/1.73 CALC BUN/CREAT (test code = [...] code = 2219) 9 U/L Delfino OrtaURIC [id number] 00:00:00* Test Item Value Reference Range Interpretation Comme nts URIC ACID (test code = 2233) 7.8 MG/DL Delfino Schumacher YouCBC W/AUTO [id number] 00:00:00* Test Item Value Reference Range Interpretation [...] 1015) 230 K/UL Delfino Schumacher YouCOMPREHENSIVE METABOLIC [id number] 00:00:00* Test Item Value Reference Range Interpretation Comme nts GLUCOSE (test code = 2217) 84 MG/DL BUN (test code = 2208) 12 MG/DL CREATININE (test code = 2214) 1.02 MG/DL eGFR AMER. (test cod e = 66141) 72 ML/MIN/1.73 eGFR NON- AMER. (test code = 22764) 62 ML/MIN/1.73 CALC BUN/CREAT (test code = [...] = 2219) 9 U/L Delfino Endy YouURIC [id number] 00:00:00* Test Item Value Reference Range Interpretation Comme nts URIC ACID (test code = 2233) 7.8 MG/DL Delfino Endy YouCBC W/AUTO [id number] 00:00:00* Test Item Value Reference Range Interpretation [...] 1015) 230 K/UL Delfino Endy YouCOMPREHENSIVE METABOLIC [id number] 00:00:00* Test Item Value Reference Range Interpretation Comme nts GLUCOSE (test code = 2217) 84 MG/DL BUN (test code = 2208) 12 MG/DL CREATININE (test code = 2214) 1.02 MG/DL eGFR AMER. (test cod e = 10625) 72 ML/MIN/1.73 eGFR NON- AMER. (test code = 47048) 62 ML/MIN/1.73 CALC BUN/CREAT (test code = [...] code = 2219) 9 U/L Delfino OrtaURIC [id number] 00:00:00* Test Item Value Reference Range Interpretation Comme nts URIC ACID (test code = 2233) 7.8 MG/DL Delfino OrtaCBC W/AUTO [id number] 00:00:00* Test Item Value Reference Range Interpretation [...] = 1015) 230 K/UL Delfino OrtaCOMPREHENSIVE METABOLIC [id number] 00:00:00* Test Item Value Reference Range Interpretation Comme nts GLUCOSE (test code = 2217) 84 MG/DL BUN (test code = 2208) 12 MG/DL CREATININE (test code = 2214) 1.02 MG/DL eGFR AMER. (test cod e = 57159) 72 ML/MIN/1.73 eGFR NON- AMER. (test code = 06302) 62 ML/MIN/1.73 CALC BUN/CREAT (test code = [...] code = 2219) 9 U/L Delfino OrtaURIC [id number] 00:00:00* Test Item Value Reference Range Interpretation Comme nts URIC ACID (test code = 2233) 7.8 MG/DL Delfino OrtaCBC W/AUTO [id number] 00:00:00* Test Item Value Reference Range Interpretation [...] = 1015) 230 K/UL Delfino OrtaCOMPREHENSIVE METABOLIC [id number] 00:00:00* Test Item Value Reference Range Interpretation Comme nts GLUCOSE (test code = 2217) 84 MG/DL BUN (test code = 2208) 12 MG/DL CREATININE (test code = 2214) 1.02 MG/DL eGFR AMER. (test cod e = 89742) 72 ML/MIN/1.73 eGFR NON- AMER. (test code = 75928) 62 ML/MIN/1.73 CALC BUN/CREAT (test code = [...] code = 2219) 9 U/L Delfino OrtaURIC [id number] 00:00:00* Test Item Value Reference Range Interpretation Comme nts URIC ACID (test code = 2233) 7.8 MG/DL Delfino OrtaCBC W/AUTO [id number] 00:00:00* Test Item Value Reference Range Interpretation [...] 1015) 230 K/UL Delfino F YouCOMPREHENSIVE METABOLIC [id number] 00:00:00* Test Item Value Reference Range Interpretation Comme nts GLUCOSE (test code = 2217) 84 MG/DL BUN (test code = 2208) 12 MG/DL CREATININE (test code = 2214) 1.02 MG/DL eGFR AMER. (test cod e = 54583) 72 ML/MIN/1.73 eGFR NON- AMER. (test code = 21212) 62 ML/MIN/1.73 CALC BUN/CREAT (test code = [...] = 2219) 9 U/L Delfino Schumacher YouURIC [id number] 00:00:00* Test Item Value Reference Range Interpretation Comme nts URIC ACID (test code = 2233) 7.8 MG/DL URIC [id number] 00:00:00* Test Item Value Reference Range Interpretation Comme nts URIC ACID (test code = 2233) 7.8 MG/DL [facility] [id number] 00:00:00* Test Item Value Reference Range Interpretation [...] code = 1015) 230 K/UL COMPREHENSIVE METABOLIC [id number] 00:00:00* Test Item Value Reference Range Interpretation Comme nts GLUCOSE (test code = 2217) 84 MG/DL BUN (test code = 2208) 12 MG/DL CREATININE (test code = 2214) 1.02 MG/DL eGFR AMER. (test cod e = 92573) 72 ML/MIN/1.73 eGFR NON- AMER. (test code = 71278) 62 ML/MIN/1.73 CALC BUN/CREAT (test code = [...] (test code = 2219) 9 U/L URIC [id number] 00:00:00* Test Item Value Reference Range Interpretation Comme nts URIC ACID (test code = 2233) 7.8 MG/DL CBC W/AUTO [id number] 00:00:00* Test Item Value Reference Range Interpretation [...] code = 1015) 230 K/UL COMPREHENSIVE METABOLIC [id number] 00:00:00* Test Item Value Reference Range Interpretation Comme nts GLUCOSE (test code = 2217) 84 MG/DL BUN (test code = 2208) 12 MG/DL CREATININE (test code = 2214) 1.02 MG/DL eGFR AMER. (test cod e = 84773) 72 ML/MIN/1.73 eGFR NON- AMER. (test code = 32832) 62 ML/MIN/1.73 CALC BUN/CREAT (test code = [...] (test code = 2219) 9 U/L URIC [id number] 00:00:00* Test Item Value Reference Range Interpretation Comme nts URIC ACID (test code = 2233) 7.8 MG/DL CBC W/AUTO [id number] 00:00:00* Test Item Value Reference Range Interpretation [...] code = 1015) 230 K/UL COMPREHENSIVE METABOLIC [id number] 00:00:00* Test Item Value Reference Range Interpretation Comme nts GLUCOSE (test code = 2217) 84 MG/DL BUN (test code = 2208) 12 MG/DL CREATININE (test code = 2214) 1.02 MG/DL eGFR AMER. (test cod e = 82587) 72 ML/MIN/1.73 eGFR NON- AMER. (test code = 41607) 62 ML/MIN/1.73 CALC BUN/CREAT (test code = [...] (test code = 2219) 9 U/L URIC [id number] 00:00:00* Test Item Value Reference Range Interpretation Comme nts URIC ACID (test code = 2233) 7.8 MG/DL CBC W/AUTO [id number] 00:00:00* Test Item Value Reference Range Interpretation [...] code = 1015) 230 K/UL COMPREHENSIVE METABOLIC [id number] 00:00:00* Test Item Value Reference Range Interpretation Comme nts GLUCOSE (test code = 2217) 84 MG/DL BUN (test code = 2208) 12 MG/DL CREATININE (test code = 2214) 1.02 MG/DL eGFR AMER. (test cod e = 41752) 72 ML/MIN/1.73 eGFR NON- AMER. (test code = 85940) 62 ML/MIN/1.73 CALC BUN/CREAT (test code = [...] code = 2219) 9 U/L CBC W/AUTO [id number] 00:00:00* Test Item Value Reference Range Interpretation [...] 1015) 230 K/UL Delfino Endy YouCOMPREHENSIVE METABOLIC [id number] 00:00:00* Test Item Value Reference Range Interpretation Comme nts GLUCOSE (test code = 2217) 84 MG/DL BUN (test code = 2208) 12 MG/DL CREATININE (test code = 2214) 1.02 MG/DL eGFR AMER. (test cod e = 68720) 72 ML/MIN/1.73 eGFR NON- AMER. (test code = 86258) 62 ML/MIN/1.73 CALC BUN/CREAT (test code = [...] code = 2219) 9 U/L Delfino OrtaURIC [id number] 00:00:00* Test Item Value Reference Range Interpretation Comme nts URIC ACID (test code = 2233) 7.8 MG/DL Delfino OrtaCBC W/AUTO [id number] 00:00:00* Test Item Value Reference Range Interpretation [...] = 1015) 230 K/UL Delfino OrtaCOMPREHENSIVE METABOLIC [id number] 00:00:00* Test Item Value Reference Range Interpretation Comme nts GLUCOSE (test code = 2217) 84 MG/DL BUN (test code = 2208) 12 MG/DL CREATININE (test code = 2214) 1.02 MG/DL eGFR AMER. (test cod e = 49394) 72 ML/MIN/1.73 eGFR NON- AMER. (test code = 62976) 62 ML/MIN/1.73 CALC BUN/CREAT (test code = [...] code = 2219) 9 U/L Delfino OrtaURIC [id number] 00:00:00* Test Item Value Reference Range Interpretation Comme nts URIC ACID (test code = 2233) 7.8 MG/DL Delfino OrtaCBC W/AUTO [id number] 00:00:00* Test Item Value Reference Range Interpretation [...] code = 1015) 230 K/UL Delfino OrtaURIC [id number] 00:00:00* Test Item Value Reference Range Interpretation Comme nts URIC ACID (test code = 2233) 7.8 MG/DL Delfino Schumacher AustinCBC W/AUTO [id number] 00:00:00* Test Item Value Reference Range Interpretation [...] = 1015) 230 K/UL Delfino OrtaCOMPREHENSIVE METABOLIC [id number] 00:00:00* Test Item Value Reference Range Interpretation Comme nts GLUCOSE (test code = 2217) 84 MG/DL BUN (test code = 2208) 12 MG/DL CREATININE (test code = 2214) 1.02 MG/DL eGFR AMER. (test cod e = 98681) 72 ML/MIN/1.73 eGFR NON- AMER. (test code = 48785) 62 ML/MIN/1.73 CALC BUN/CREAT (test code = [...] code = 2219) 9 U/L Delfino OrtaURIC [id number] 00:00:00* Test Item Value Reference Range Interpretation Comme nts URIC ACID (test code = 2233) 7.8 MG/DL Delfino OrtaCBC W/AUTO [id number] 00:00:00* Test Item Value Reference Range Interpretation [...] = 1015) 230 K/UL Delfino OrtaCOMPREHENSIVE METABOLIC [id number] 00:00:00* Test Item Value Reference Range Interpretation Comme nts GLUCOSE (test code = 2217) 84 MG/DL BUN (test code = 2208) 12 MG/DL CREATININE (test code = 2214) 1.02 MG/DL eGFR AMER. (test cod e = 74040) 72 ML/MIN/1.73 eGFR NON- AMER. (test code = 88606) 62 ML/MIN/1.73 CALC BUN/CREAT (test code = [...] code = 2219) 9 U/L Delfino OrtaURIC [id number] 00:00:00* Test Item Value Reference Range Interpretation Comme nts URIC ACID (test code = 2233) 7.8 MG/DL Delfino Schumacher AustinLIPID [id number] 00:00:00* Test Item Value Reference Range Interpretation Comme nts CHOLESTEROL (test code = 2210) 215 MG/DL TRIGLYCERIDES (test code = 2232) 61 MG/DL HDL CHOLESTEROL (test code = 2220) 93 MG/DL CALC LDL CHOL (test code = 2237) 110 MG/DL RISK RATIO LDL/HDL (test cod e = 2238) 1.18 RATIO Delfino OrtaCOMPREHENSIVE METABOLIC [id number] 00:00:00* Test Item Value Reference Range Interpretation Comme nts GLUCOSE (test code = 2217) 93 MG/DL BUN (test code = 2208) 20 MG/DL CREATININE (test code = 2214) 1.18 MG/DL eGFR AMER. (test cod e = 56407) 61 ML/MIN/1.73 eGFR NON- AMER. (test code = 66105) 52 ML/MIN/1.73 CALC BUN/CREAT (test code = [...] 2219) 15 U/L Delfino Schumacher AustinCOMPREHENSIVE METABOLIC [id number] 00:00:00* Test Item Value Reference Range Interpretation Comme nts GLUCOSE (test code = 2217) 93 MG/DL BUN (test code = 2208) 20 MG/DL CREATININE (test code = 2214) 1.18 MG/DL eGFR AMER. (test cod e = 26634) 61 ML/MIN/1.73 eGFR NON- AMER. (test code = 60140) 52 ML/MIN/1.73 CALC BUN/CREAT (test code = [...] code = 2219) 15 U/L [facility] [id number] 00:00:00* Test Item Value Reference Range Interpretation [...] code = 1015) 317 K/UL Delfino OrtaLIPID [id number] 00:00:00* Test Item Value Reference Range Interpretation Comme nts CHOLESTEROL (test code = 2210) 215 MG/DL TRIGLYCERIDES (test code = 2232) 61 MG/DL HDL CHOLESTEROL (test code = 2220) 93 MG/DL CALC LDL CHOL (test code = 2237) 110 MG/DL RISK RATIO LDL/HDL (test cod e = 2238) 1.18 RATIO Delfino OrtaCOMPREHENSIVE METABOLIC [id number] 00:00:00* Test Item Value Reference Range Interpretation Comme nts GLUCOSE (test code = 2217) 93 MG/DL BUN (test code = 2208) 20 MG/DL CREATININE (test code = 2214) 1.18 MG/DL eGFR AMER. (test cod e = 71986) 61 ML/MIN/1.73 eGFR NON- AMER. (test code = 23203) 52 ML/MIN/1.73 CALC BUN/CREAT (test code = [...] = 2219) 15 U/L Delfino OrtaCBC W/AUTO [id number] 00:00:00* Test Item Value Reference Range Interpretation [...] code = 1015) 317 K/UL Delfino OrtaLIPID [id number] 00:00:00* Test Item Value Reference Range Interpretation Comme nts CHOLESTEROL (test code = 2210) 215 MG/DL TRIGLYCERIDES (test code = 2232) 61 MG/DL HDL CHOLESTEROL (test code = 2220) 93 MG/DL CALC LDL CHOL (test code = 2237) 110 MG/DL RISK RATIO LDL/HDL (test cod e = 2238) 1.18 RATIO Delfino OrtaCOMPREHENSIVE METABOLIC [id number] 00:00:00* Test Item Value Reference Range Interpretation Comme nts GLUCOSE (test code = 2217) 93 MG/DL BUN (test code = 2208) 20 MG/DL CREATININE (test code = 2214) 1.18 MG/DL eGFR AMER. (test cod e = 22128) 61 ML/MIN/1.73 eGFR NON- AMER. (test code = 73900) 52 ML/MIN/1.73 CALC BUN/CREAT (test code = [...] = 2219) 15 U/L Delfino OrtaCBC W/AUTO [id number] 00:00:00* Test Item Value Reference Range Interpretation [...] code = 1015) 317 K/UL Delfino OrtaLIPID [id number] 00:00:00* Test Item Value Reference Range Interpretation Comme nts CHOLESTEROL (test code = 2210) 215 MG/DL TRIGLYCERIDES (test code = 2232) 61 MG/DL HDL CHOLESTEROL (test code = 2220) 93 MG/DL CALC LDL CHOL (test code = 2237) 110 MG/DL RISK RATIO LDL/HDL (test cod e = 2238) 1.18 RATIO Delfino OrtaCOMPREHENSIVE METABOLIC [id number] 00:00:00* Test Item Value Reference Range Interpretation Comme nts GLUCOSE (test code = 2217) 93 MG/DL BUN (test code = 2208) 20 MG/DL CREATININE (test code = 2214) 1.18 MG/DL eGFR AMER. (test cod e = 91782) 61 ML/MIN/1.73 eGFR NON- AMER. (test code = 68135) 52 ML/MIN/1.73 CALC BUN/CREAT (test code = [...] = 2219) 15 U/L Delfino OrtaCBC W/AUTO [id number] 00:00:00* Test Item Value Reference Range Interpretation [...] code = 1015) 317 K/UL Delfino OrtaLIPID [id number] 00:00:00* Test Item Value Reference Range Interpretation Comme nts CHOLESTEROL (test code = 2210) 215 MG/DL TRIGLYCERIDES (test code = 2232) 61 MG/DL HDL CHOLESTEROL (test code = 2220) 93 MG/DL CALC LDL CHOL (test code = 2237) 110 MG/DL RISK RATIO LDL/HDL (test cod e = 2238) 1.18 RATIO Delfino OrtaCOMPREHENSIVE METABOLIC [id number] 00:00:00* Test Item Value Reference Range Interpretation Comme nts GLUCOSE (test code = 2217) 93 MG/DL BUN (test code = 2208) 20 MG/DL CREATININE (test code = 2214) 1.18 MG/DL eGFR AMER. (test cod e = 74361) 61 ML/MIN/1.73 eGFR NON- AMER. (test code = 62837) 52 ML/MIN/1.73 CALC BUN/CREAT (test code = [...] = 2219) 15 U/L Delfino OrtaCBC W/AUTO [id number] 00:00:00* Test Item Value Reference Range Interpretation [...] code = 1015) 317 K/UL Delfino OrtaLIPID [id number] 00:00:00* Test Item Value Reference Range Interpretation Comme nts CHOLESTEROL (test code = 2210) 215 MG/DL TRIGLYCERIDES (test code = 2232) 61 MG/DL HDL CHOLESTEROL (test code = 2220) 93 MG/DL CALC LDL CHOL (test code = 2237) 110 MG/DL RISK RATIO LDL/HDL (test cod e = 2238) 1.18 RATIO Delfino OrtaCOMPREHENSIVE METABOLIC [id number] 00:00:00* Test Item Value Reference Range Interpretation Comme nts GLUCOSE (test code = 2217) 93 MG/DL BUN (test code = 2208) 20 MG/DL CREATININE (test code = 2214) 1.18 MG/DL eGFR AMER. (test cod e = 14862) 61 ML/MIN/1.73 eGFR NON- AMER. (test code = 41328) 52 ML/MIN/1.73 CALC BUN/CREAT (test code = [...] 2219) 15 U/L Delfino Schumacher YouCBC W/AUTO [id number] 00:00:00* Test Item Value Reference Range Interpretation [...] code = 1015) 317 K/UL Delfino OrtaLIPID [id number] 00:00:00* Test Item Value Reference Range Interpretation Comme nts CHOLESTEROL (test code = 2210) 215 MG/DL TRIGLYCERIDES (test code = 2232) 61 MG/DL HDL CHOLESTEROL (test code = 2220) 93 MG/DL CALC LDL CHOL (test code = 2237) 110 MG/DL RISK RATIO LDL/HDL (test cod e = 2238) 1.18 RATIO Delfino OrtaCOMPREHENSIVE METABOLIC [id number] 00:00:00* Test Item Value Reference Range Interpretation Comme nts GLUCOSE (test code = 2217) 93 MG/DL BUN (test code = 2208) 20 MG/DL CREATININE (test code = 2214) 1.18 MG/DL eGFR AMER. (test cod e = 99128) 61 ML/MIN/1.73 eGFR NON- AMER. (test code = 81432) 52 ML/MIN/1.73 CALC BUN/CREAT (test code = [...] = 2219) 15 U/L Delfino OrtaCBC W/AUTO [id number] 00:00:00* Test Item Value Reference Range Interpretation [...] code = 1015) 317 K/UL Delfino OrtaLIPID [id number] 00:00:00* Test Item Value Reference Range Interpretation Comme nts CHOLESTEROL (test code = 2210) 215 MG/DL TRIGLYCERIDES (test code = 2232) 61 MG/DL HDL CHOLESTEROL (test code = 2220) 93 MG/DL CALC LDL CHOL (test code = 2237) 110 MG/DL RISK RATIO LDL/HDL (test cod e = 2238) 1.18 RATIO Delfino OrtaCOMPREHENSIVE METABOLIC [id number] 00:00:00* Test Item Value Reference Range Interpretation Comme nts GLUCOSE (test code = 2217) 93 MG/DL BUN (test code = 2208) 20 MG/DL CREATININE (test code = 2214) 1.18 MG/DL eGFR AMER. (test cod e = 14323) 61 ML/MIN/1.73 eGFR NON- AMER. (test code = 44896) 52 ML/MIN/1.73 CALC BUN/CREAT (test code = [...] (test code = 2219) 15 U/L Delfino OrtaC W/AUTO [id number] 00:00:00* Test Item Value Reference Range Interpretation [...] code = 1015) 317 K/UL Delfino OrtaLIPID [id number] 00:00:00* Test Item Value Reference Range Interpretation Comme nts CHOLESTEROL (test code = 2210) 215 MG/DL TRIGLYCERIDES (test code = 2232) 61 MG/DL HDL CHOLESTEROL (test code = 2220) 93 MG/DL CALC LDL CHOL (test code = 2237) 110 MG/DL RISK RATIO LDL/HDL (test cod e = 2238) 1.18 RATIO Delfino OrtaCOMPREHENSIVE METABOLIC [id number] 00:00:00* Test Item Value Reference Range Interpretation Comme nts GLUCOSE (test code = 2217) 93 MG/DL BUN (test code = 2208) 20 MG/DL CREATININE (test code = 2214) 1.18 MG/DL eGFR AMER. (test cod e = 56201) 61 ML/MIN/1.73 eGFR NON- AMER. (test code = 26281) 52 ML/MIN/1.73 CALC BUN/CREAT (test code = [...] 2219) 15 U/L Delfino Schumacher YouCBC W/AUTO [id number] 00:00:00* Test Item Value Reference Range Interpretation [...] code = 1015) 317 K/UL Delfino Schumacher YouLIPID [id number] 00:00:00* Test Item Value Reference Range Interpretation Comme nts CHOLESTEROL (test code = 2210) 215 MG/DL TRIGLYCERIDES (test code = 2232) 61 MG/DL HDL CHOLESTEROL (test code = 2220) 93 MG/DL CALC LDL CHOL (test code = 2237) 110 MG/DL RISK RATIO LDL/HDL (test cod e = 2238) 1.18 RATIO Delfino F YouCOMPREHENSIVE METABOLIC [id number] 00:00:00* Test Item Value Reference Range Interpretation Comme nts GLUCOSE (test code = 2217) 93 MG/DL BUN (test code = 2208) 20 MG/DL CREATININE (test code = 2214) 1.18 MG/DL eGFR AMER. (test cod e = 52284) 61 ML/MIN/1.73 eGFR NON- AMER. (test code = 33282) 52 ML/MIN/1.73 CALC BUN/CREAT (test code = [...] = 2219) 15 U/L Delfino OrtaCBC W/AUTO [id number] 00:00:00* Test Item Value Reference Range Interpretation [...] code = 1015) 317 K/UL Delfino OrtaLIPID [id number] 00:00:00* Test Item Value Reference Range Interpretation Comme nts CHOLESTEROL (test code = 2210) 215 MG/DL TRIGLYCERIDES (test code = 2232) 61 MG/DL HDL CHOLESTEROL (test code = 2220) 93 MG/DL CALC LDL CHOL (test code = 2237) 110 MG/DL RISK RATIO LDL/HDL (test cod e = 2238) 1.18 RATIO Delfino OrtaCOMPREHENSIVE METABOLIC [id number] 00:00:00* Test Item Value Reference Range Interpretation Comme nts GLUCOSE (test code = 2217) 93 MG/DL BUN (test code = 2208) 20 MG/DL CREATININE (test code = 2214) 1.18 MG/DL eGFR AMER. (test cod e = 28581) 61 ML/MIN/1.73 eGFR NON- AMER. (test code = 52341) 52 ML/MIN/1.73 CALC BUN/CREAT (test code = [...] = 2219) 15 U/L Delfino OrtaCBC W/AUTO [id number] 00:00:00* Test Item Value Reference Range Interpretation [...] code = 1015) 317 K/UL Delfino OrtaLIPID [id number] 00:00:00* Test Item Value Reference Range Interpretation Comme nts CHOLESTEROL (test code = 2210) 215 MG/DL TRIGLYCERIDES (test code = 2232) 61 MG/DL HDL CHOLESTEROL (test code = 2220) 93 MG/DL CALC LDL CHOL (test code = 2237) 110 MG/DL RISK RATIO LDL/HDL (test cod e = 2238) 1.18 RATIO Delfino Schumacher YouCOMPREHENSIVE METABOLIC [id number] 00:00:00* Test Item Value Reference Range Interpretation Comme nts GLUCOSE (test code = 2217) 93 MG/DL BUN (test code = 2208) 20 MG/DL CREATININE (test code = 2214) 1.18 MG/DL eGFR AMER. (test cod e = 53555) 61 ML/MIN/1.73 eGFR NON- AMER. (test code = 56958) 52 ML/MIN/1.73 CALC BUN/CREAT (test code = [...] = 2219) 15 U/L Delfino OrtaCBC W/AUTO [id number] 00:00:00* Test Item Value Reference Range Interpretation [...] code = 1015) 317 K/UL Delfino OrtaLIPID [id number] 00:00:00* Test Item Value Reference Range Interpretation Comme nts CHOLESTEROL (test code = 2210) 215 MG/DL TRIGLYCERIDES (test code = 2232) 61 MG/DL HDL CHOLESTEROL (test code = 2220) 93 MG/DL CALC LDL CHOL (test code = 2237) 110 MG/DL RISK RATIO LDL/HDL (test cod e = 2238) 1.18 RATIO Delfino OrtaCOMPREHENSIVE METABOLIC [id number] 00:00:00* Test Item Value Reference Range Interpretation Comme nts GLUCOSE (test code = 2217) 93 MG/DL BUN (test code = 2208) 20 MG/DL CREATININE (test code = 2214) 1.18 MG/DL eGFR AMER. (test cod e = 90631) 61 ML/MIN/1.73 eGFR NON- AMER. (test code = 00496) 52 ML/MIN/1.73 CALC BUN/CREAT (test code = [...] = 2219) 15 U/L Delfino OrtaCBC W/AUTO [id number] 00:00:00* Test Item Value Reference Range Interpretation [...] code = 1015) 317 K/UL Delfino OrtaLIPID [id number] 00:00:00* Test Item Value Reference Range Interpretation Comme nts CHOLESTEROL (test code = 2210) 215 MG/DL TRIGLYCERIDES (test code = 2232) 61 MG/DL HDL CHOLESTEROL (test code = 2220) 93 MG/DL CALC LDL CHOL (test code = 2237) 110 MG/DL RISK RATIO LDL/HDL (test cod e = 2238) 1.18 RATIO Delfino OrtaCOMPREHENSIVE METABOLIC [id number] 00:00:00* Test Item Value Reference Range Interpretation Comme nts GLUCOSE (test code = 2217) 93 MG/DL BUN (test code = 2208) 20 MG/DL CREATININE (test code = 2214) 1.18 MG/DL eGFR AMER. (test cod e = 84907) 61 ML/MIN/1.73 eGFR NON- AMER. (test code = 92582) 52 ML/MIN/1.73 CALC BUN/CREAT (test code = [...] (test code = 2219) 15 U[facility] [id number] 00:00:00* Test Item Value Reference Range Interpretation [...] (test code = 1015) 317 K/UL LIPID [id number] 00:00:00* Test Item Value Reference Range Interpretation Comme nts CHOLESTEROL (test code = 2210) 215 MG/DL TRIGLYCERIDES (test code = 2232) 61 MG/DL HDL CHOLESTEROL (test code = 2220) 93 MG/DL CALC LDL CHOL (test code = 2237) 110 MG/DL RISK RATIO LDL/HDL (test cod e = 2238) 1.18 RATIO COMPREHENSIVE METABOLIC [id number] 00:00:00* Test Item Value Reference Range Interpretation Comme nts GLUCOSE (test code = 2217) 93 MG/DL BUN (test code = 2208) 20 MG/DL CREATININE (test code = 2214) 1.18 MG/DL eGFR AMER. (test cod e = 03378) 61 ML/MIN/1.73 eGFR NON- AMER. (test code = 46335) 52 ML/MIN/1.73 CALC BUN/CREAT (test code = [...] code = 2219) 15 U/L CBC W/AUTO [id number] 00:00:00* Test Item Value Reference Range Interpretation [...] (test code = 1015) 317 K/UL [facility] [id number] 00:00:00* Test Item Value Reference Range Interpretation [...] (test code = 1015) 317 K/UL LIPID [id number] 00:00:00* Test Item Value Reference Range Interpretation Comme nts CHOLESTEROL (test code = 2210) 215 MG/DL TRIGLYCERIDES (test code = 2232) 61 MG/DL HDL CHOLESTEROL (test code = 2220) 93 MG/DL CALC LDL CHOL (test code = 2237) 110 MG/DL RISK RATIO LDL/HDL (test cod e = 2238) 1.18 RATIO COMPREHENSIVE METABOLIC [id number] 00:00:00* Test Item Value Reference Range Interpretation Comme nts GLUCOSE (test code = 2217) 93 MG/DL BUN (test code = 2208) 20 MG/DL CREATININE (test code = 2214) 1.18 MG/DL eGFR AMER. (test cod e = 39411) 61 ML/MIN/1.73 eGFR NON- AMER. (test code = 16089) 52 ML/MIN/1.73 CALC BUN/CREAT (test code = [...] code = 2219) 15 U/L CBC W/AUTO [id number] 00:00:00* Test Item Value Reference Range Interpretation [...] (test code = 1015) 317 K/UL LIPID [id number] 00:00:00* Test Item Value Reference Range Interpretation Comme nts CHOLESTEROL (test code = 2210) 215 MG/DL TRIGLYCERIDES (test code = 2232) 61 MG/DL HDL CHOLESTEROL (test code = 2220) 93 MG/DL CALC LDL CHOL (test code = 2237) 110 MG/DL RISK RATIO LDL/HDL (test cod e = 2238) 1.18 RATIO COMPREHENSIVE METABOLIC [id number] 00:00:00* Test Item Value Reference Range Interpretation Comme nts GLUCOSE (test code = 2217) 93 MG/DL BUN (test code = 2208) 20 MG/DL CREATININE (test code = 2214) 1.18 MG/DL eGFR AMER. (test cod e = 97400) 61 ML/MIN/1.73 eGFR NON- AMER. (test code = 52198) 52 ML/MIN/1.73 CALC BUN/CREAT (test code = [...] code = 2219) 15 U/L CBC W/AUTO [id number] 00:00:00* Test Item Value Reference Range Interpretation [...] (test code = 1015) 317 K/UL LIPID [id number] 00:00:00* Test Item Value Reference Range Interpretation Comme nts CHOLESTEROL (test code = 2210) 215 MG/DL TRIGLYCERIDES (test code = 2232) 61 MG/DL HDL CHOLESTEROL (test code = 2220) 93 MG/DL CALC LDL CHOL (test code = 2237) 110 MG/DL RISK RATIO LDL/HDL (test cod e = 2238) 1.18 RATIO COMPREHENSIVE METABOLIC [id number] 00:00:00* Test Item Value Reference Range Interpretation Comme nts GLUCOSE (test code = 2217) 93 MG/DL BUN (test code = 2208) 20 MG/DL CREATININE (test code = 2214) 1.18 MG/DL eGFR AMER. (test cod e = 28602) 61 ML/MIN/1.73 eGFR NON- AMER. (test code = 97742) 52 ML/MIN/1.73 CALC BUN/CREAT (test code = [...] (test code = 2219) 15 U/L LIPID [id number] 00:00:00* Test Item Value Reference Range Interpretation Comme nts CHOLESTEROL (test code = 2210) 215 MG/DL TRIGLYCERIDES (test code = 2232) 61 MG/DL HDL CHOLESTEROL (test code = 2220) 93 MG/DL CALC LDL CHOL (test code = 2237) 110 MG/DL RISK RATIO LDL/HDL (test cod e = 2238) 1.18 RATIO Delfino F AustinCOMPREHENSIVE METABOLIC [id number] 00:00:00* Test Item Value Reference Range Interpretation Comme nts GLUCOSE (test code = 2217) 93 MG/DL BUN (test code = 2208) 20 MG/DL CREATININE (test code = 2214) 1.18 MG/DL eGFR AMER. (test cod e = 73020) 61 ML/MIN/1.73 eGFR NON- AMER. (test code = 01948) 52 ML/MIN/1.73 CALC BUN/CREAT (test code = [...] = 2219) 15 U/L Delfino OrtaCBC W/AUTO [id number] 00:00:00* Test Item Value Reference Range Interpretation [...] code = 1015) 317 K/UL Delfino OrtaLIPID [id number] 00:00:00* Test Item Value Reference Range Interpretation Comme nts CHOLESTEROL (test code = 2210) 215 MG/DL TRIGLYCERIDES (test code = 2232) 61 MG/DL HDL CHOLESTEROL (test code = 2220) 93 MG/DL CALC LDL CHOL (test code = 2237) 110 MG/DL RISK RATIO LDL/HDL (test cod e = 2238) 1.18 RATIO Delfino OrtaCOMPREHENSIVE METABOLIC [id number] 00:00:00* Test Item Value Reference Range Interpretation Comme nts GLUCOSE (test code = 2217) 93 MG/DL BUN (test code = 2208) 20 MG/DL CREATININE (test code = 2214) 1.18 MG/DL eGFR AMER. (test cod e = 19433) 61 ML/MIN/1.73 eGFR NON- AMER. (test code = 15596) 52 ML/MIN/1.73 CALC BUN/CREAT (test code = [...] code = 2219) 15 U/L Delfino Schumacher [facility] W/AUTO [id number] 00:00:00* Test Item Value Reference Range Interpretation [...] = 1015) 317 K/UL Delfino OrtaCBC W/AUTO [id number] 00:00:00* Test Item Value Reference Range Interpretation [...] code = 1015) 317 K/UL Delfino OrtaLIPID [id number] 00:00:00* Test Item Value Reference Range Interpretation Comme nts CHOLESTEROL (test code = 2210) 215 MG/DL TRIGLYCERIDES (test code = 2232) 61 MG/DL HDL CHOLESTEROL (test code = 2220) 93 MG/DL CALC LDL CHOL (test code = 2237) 110 MG/DL RISK RATIO LDL/HDL (test cod e = 2238) 1.18 RATIO Delfino OrtaCOMPREHENSIVE METABOLIC [id number] 00:00:00* Test Item Value Reference Range Interpretation Comme nts GLUCOSE (test code = 2217) 93 MG/DL BUN (test code = 2208) 20 MG/DL CREATININE (test code = 2214) 1.18 MG/DL eGFR AMER. (test cod e = 39499) 61 ML/MIN/1.73 eGFR NON- AMER. (test code = 28018) 52 ML/MIN/1.73 CALC BUN/CREAT (test code = [...] = 2219) 15 U/L Delfino OrtaCBC W/AUTO [id number] 00:00:00* Test Item Value Reference Range Interpretation [...] code = 1015) 317 K/UL Delfino OrtaLIPID [id number] 00:00:00* Test Item Value Reference Range Interpretation Comme nts CHOLESTEROL (test code = 2210) 215 MG/DL TRIGLYCERIDES (test code = 2232) 61 MG/DL HDL CHOLESTEROL (test code = 2220) 93 MG/DL CALC LDL CHOL (test code = 2237) 110 MG/DL RISK RATIO LDL/HDL (test cod e = 2238) 1.18 RATIO Delfino OrtaLIPID [id number] 00:00:00* Test Item Value Reference Range Interpretation Comme nts CHOLESTEROL (test code = 2210) 215 MG/DL TRIGLYCERIDES (test code = 2232) 61 MG/DL HDL CHOLESTEROL (test code = 2220) 93 MG/DL CALC LDL CHOL (test code = 2237) 110 MG/DL RISK RATIO LDL/HDL (test cod e = 2238) 1.18 RATIO Delfino OrtaCOMPREHENSIVE METABOLIC [id number] 00:00:00* Test Item Value Reference Range Interpretation Comme nts GLUCOSE (test code = 2217) 93 MG/DL BUN (test code = 2208) 20 MG/DL CREATININE (test code = 2214) 1.18 MG/DL eGFR AMER. (test cod e = 61186) 61 ML/MIN/1.73 eGFR NON- AMER. (test code = 96525) 52 ML/MIN/1.73 CALC BUN/CREAT (test code = [...] = 2219) 15 U/L Delfino OrtaCBC W/AUTO [id number] 00:00:00* Test Item Value Reference Range Interpretation [...] Comme nts CULTURE, URINE (test code = 84609) SPECIMEN NUMBER: [id number] Delfino OrtaCULTURE, URINE [ADDED]2017-08-24 00:00:00* Test Item Value Reference Range Interpretation Comme nts CULTURE, URINE (test code = 94945) SPECIMEN NUMBER: [id number] Delfino OrtaCULTURE, URINE [ADDED]2017-08-24 00:00:00* Test Item Value Reference Range Interpretation Comme nts CULTURE, URINE (test code = 31970) SPECIMEN NUMBER: [id number] Delfino OrtaCULTURE, URINE [ADDED]2017-08-24 00:00:00* Test Item Value Reference Range Interpretation Comme nts CULTURE, URINE (test code = 30313) SPECIMEN NUMBER: [id number] Delfino OrtaCULTURE, URINE [ADDED]2017-08-24 00:00:00* Test Item Value Reference Range Interpretation Comme nts CULTURE, URINE (test code = 86557) SPECIMEN NUMBER: [id number] Delfino OrtaCULTURE, URINE [ADDED]2017-08-24 00:00:00* Test Item Value Reference Range Interpretation Comme nts CULTURE, URINE (test code = 94105) SPECIMEN NUMBER: [id number] Delfino OrtaCULTURE, URINE [ADDED]2017-08-24 00:00:00* Test Item Value Reference Range Interpretation Comme nts CULTURE, URINE (test code = 82375) SPECIMEN NUMBER: [id number] Delfino OrtaCULTURE, URINE [ADDED]2017-08-24 00:00:00* Test Item Value Reference Range Interpretation Comme nts CULTURE, URINE (test code = 16749) SPECIMEN NUMBER: [id number] Delfino OrtaCULTURE, URINE [ADDED]2017-08-24 00:00:00* Test Item Value Reference Range Interpretation Comme nts CULTURE, URINE (test code = 34280) SPECIMEN NUMBER: [id number] Delfino OrtaCULTURE, URINE [ADDED]2017-08-24 00:00:00* Test Item Value Reference Range Interpretation Comme nts CULTURE, URINE (test code = 47774) SPECIMEN NUMBER: [id number] Delfino OrtaCULTURE, URINE [ADDED]2017-08-24 00:00:00* Test Item Value Reference Range Interpretation Comme nts CULTURE, URINE (test code = 86034) SPECIMEN NUMBER: [id number] Delfino OrtaCULTURE, URINE [ADDED]2017-08-24 00:00:00* Test Item Value Reference Range Interpretation Comme nts CULTURE, URINE (test code = 57115) SPECIMEN NUMBER: [id number] Delfino OrtaCULTURE, URINE [ADDED]2017-08-24 00:00:00* Test Item Value Reference Range Interpretation Comme nts CULTURE, URINE (test code = 45643) SPECIMEN NUMBER: [id number] Delfino OrtaCULTURE, URINE [ADDED]2017-08-24 00:00:00* Test Item Value Reference Range Interpretation Comme nts CULTURE, URINE (test code = 62347) SPECIMEN NUMBER: [id number] Delfino OrtaCULTURE, URINE [ADDED]2017-08-24 00:00:00* Test Item Value Reference Range Interpretation Comme nts CULTURE, URINE (test code = 94278) SPECIMEN NUMBER: [id number] Delfino OrtaCULTURE, URINE [ADDED]2017-08-24 00:00:00* Test Item Value Reference Range Interpretation Comme nts CULTURE, URINE (test code = 10227) SPECIMEN NUMBER: [id number] CULTURE, URINE [ADDED]2017-08-24 00:00:00* Test Item Value Reference Range Interpretation Comme nts CULTURE, URINE (test code = 40221) SPECIMEN NUMBER: [id number] CULTURE, URINE [ADDED]2017-08-24 00:00:00* Test Item Value Reference Range Interpretation Comme nts CULTURE, URINE (test code = 45588) SPECIMEN NUMBER: [id number] CULTURE, URINE [ADDED]2017-08-24 00:00:00* Test Item Value Reference Range Interpretation Comme nts CULTURE, URINE (test code = 40729) SPECIMEN NUMBER: [id number] CULTURE, URINE [ADDED]2017-08-24 00:00:00* Test Item Value Reference Range Interpretation Comme nts CULTURE, URINE (test code = 08787) SPECIMEN NUMBER: [id number] Delfino OrtaCULTURE, URINE [ADDED]2017-08-24 00:00:00* Test Item Value Reference Range Interpretation Comme nts CULTURE, URINE (test code = 56657) SPECIMEN NUMBER: [id number] Delfino OrtaCULTURE, URINE [ADDED]2017-08-24 00:00:00* Test Item Value Reference Range Interpretation Comme nts CULTURE, URINE (test code = 13242) SPECIMEN NUMBER: [id number] Delfino OrtaCULTURE, URINE [ADDED]2017-08-24 00:00:00* Test Item Value Reference Range Interpretation Comme nts CULTURE, URINE (test code = 31819) SPECIMEN NUMBER: [id number] Delfino OrtaCOMPREHENSIVE METABOLIC [id number] 00:00:00* Test Item Value Reference Range Interpretation Comme nts GLUCOSE (test code = 2217) 92 MG/DL BUN (test code = 2208) 23 MG/DL CREATININE (test code = 2214) 1.27 MG/DL eGFR AMER. (test cod e = 95924) 55 ML/MIN/1.73 eGFR NON- AMER. (test code = 43380) 48 ML/MIN/1.73 CALC BUN/CREAT (test code = [...] 2219) 23 U/L Delfino OrtaHEPATITIS C REFLEX [id number] 00:00:00* Test Item Value Reference Range Interpretation Comme nts HEPATITIS C ANTIBODY (test c ode = 4675) NON-REACTIVE Delfino OrtaHEPATITIS C REFLEX [id number] 00:00:00* Test Item Value Reference Range Interpretation Comme nts HEPATITIS C ANTIBODY (test c ode = 4675) NON-REACTIVE Delfino OrtaCBC W/AUTO [id number] 00:00:00* Test Item Value Reference Range Interpretation [...] COMMENTS (test code = 1016) (NOTE) Delfino OtraCOMPREHENSIVE METABOLIC [id number] 00:00:00* Test Item Value Reference Range Interpretation Comme nts GLUCOSE (test code = 2217) 92 MG/DL BUN (test code = 2208) 23 MG/DL CREATININE (test code = 2214) 1.27 MG/DL eGFR AMER. (test cod e = 54422) 55 ML/MIN/1.73 eGFR NON- AMER. (test code = 34474) 48 ML/MIN/1.73 CALC BUN/CREAT (test code = [...] 2219) 23 U/L Delfino OrtaHEPATITIS C REFLEX [id number] 00:00:00* Test Item Value Reference Range Interpretation Comme nts HEPATITIS C ANTIBODY (test c ode = 4675) NON-REACTIVE Delfino OrtaCBC W/AUTO [id number] 00:00:00* Test Item Value Reference Range Interpretation [...] code = 1016) (NOTE) Delfino OrtaCOMPREHENSIVE METABOLIC [id number] 00:00:00* Test Item Value Reference Range Interpretation Comme nts GLUCOSE (test code = 2217) 92 MG/DL BUN (test code = 2208) 23 MG/DL CREATININE (test code = 2214) 1.27 MG/DL eGFR AMER. (test cod e = 56324) 55 ML/MIN/1.73 eGFR NON- AMER. (test code = 86448) 48 ML/MIN/1.73 CALC BUN/CREAT (test code = [...] 2219) 23 U/L Delfino OrtaHEPATITIS C REFLEX [id number] 00:00:00* Test Item Value Reference Range Interpretation Comme nts HEPATITIS C ANTIBODY (test c ode = 4675) NON-REACTIVE Delfino OrtaCBC W/AUTO [id number] 00:00:00* Test Item Value Reference Range Interpretation [...] code = 1016) (NOTE) Delfino OrtaCOMPREHENSIVE METABOLIC [id number] 00:00:00* Test Item Value Reference Range Interpretation Comme nts GLUCOSE (test code = 2217) 92 MG/DL BUN (test code = 2208) 23 MG/DL CREATININE (test code = 2214) 1.27 MG/DL eGFR AMER. (test cod e = 07285) 55 ML/MIN/1.73 eGFR NON- AMER. (test code = 92228) 48 ML/MIN/1.73 CALC BUN/CREAT (test code = [...] 2219) 23 U/L Delfino OrtaHEPATITIS C REFLEX [id number] 00:00:00* Test Item Value Reference Range Interpretation Comme nts HEPATITIS C ANTIBODY (test c ode = 4675) NON-REACTIVE Delfino OrtaCBC W/AUTO [id number] 00:00:00* Test Item Value Reference Range Interpretation [...] code = 1016) (NOTE) Delfino OrtaCOMPREHENSIVE METABOLIC [id number] 00:00:00* Test Item Value Reference Range Interpretation Comme nts GLUCOSE (test code = 2217) 92 MG/DL BUN (test code = 2208) 23 MG/DL CREATININE (test code = 2214) 1.27 MG/DL eGFR AMER. (test cod e = 61811) 55 ML/MIN/1.73 eGFR NON- AMER. (test code = 94393) 48 ML/MIN/1.73 CALC BUN/CREAT (test code = [...] 23 U/L Delfino Schumacher YouHEPATITIS C REFLEX [id number] 00:00:00* Test Item Value Reference Range Interpretation Comme nts HEPATITIS C ANTIBODY (test c ode = 4675) NON-REACTIVE Delfino Schumacher YouCBC W/AUTO [id number] 00:00:00* Test Item Value Reference Range Interpretation [...] code = 1016) (NOTE) Delfino OrtaCOMPREHENSIVE METABOLIC [id number] 00:00:00* Test Item Value Reference Range Interpretation Comme nts GLUCOSE (test code = 2217) 92 MG/DL BUN (test code = 2208) 23 MG/DL CREATININE (test code = 2214) 1.27 MG/DL eGFR AMER. (test cod e = 80306) 55 ML/MIN/1.73 eGFR NON- AMER. (test code = 80157) 48 ML/MIN/1.73 CALC BUN/CREAT (test code = [...] 2219) 23 U/L Delfino OrtaHEPATITIS C REFLEX [id number] 00:00:00* Test Item Value Reference Range Interpretation Comme nts HEPATITIS C ANTIBODY (test c ode = 4675) NON-REACTIVE Delfino OrtaCBC W/AUTO [id number] 00:00:00* Test Item Value Reference Range Interpretation [...] code = 1016) (NOTE) Delfino OrtaCOMPREHENSIVE METABOLIC [id number] 00:00:00* Test Item Value Reference Range Interpretation Comme nts GLUCOSE (test code = 2217) 92 MG/DL BUN (test code = 2208) 23 MG/DL CREATININE (test code = 2214) 1.27 MG/DL eGFR AMER. (test cod e = 74003) 55 ML/MIN/1.73 eGFR NON- AMER. (test code = 28668) 48 ML/MIN/1.73 CALC BUN/CREAT (test code = [...] 2219) 23 U/L Delfino OrtaHEPATITIS C REFLEX [id number] 00:00:00* Test Item Value Reference Range Interpretation Comme nts HEPATITIS C ANTIBODY (test c ode = 4675) NON-REACTIVE Delfino Schumacher YouCBC W/AUTO [id number] 00:00:00* Test Item Value Reference Range Interpretation [...] code = 1016) (NOTE) Delfino OrtaCOMPREHENSIVE METABOLIC [id number] 00:00:00* Test Item Value Reference Range Interpretation Comme nts GLUCOSE (test code = 2217) 92 MG/DL BUN (test code = 2208) 23 MG/DL CREATININE (test code = 2214) 1.27 MG/DL eGFR AMER. (test cod e = 33866) 55 ML/MIN/1.73 eGFR NON- AMER. (test code = 44231) 48 ML/MIN/1.73 CALC BUN/CREAT (test code = [...] 2219) 23 U/L Delfino OrtaHEPATITIS C REFLEX [id number] 00:00:00* Test Item Value Reference Range Interpretation Comme nts HEPATITIS C ANTIBODY (test c ode = 4675) NON-REACTIVE Delfino OrtaCBC W/AUTO [id number] 00:00:00* Test Item Value Reference Range Interpretation [...] code = 1016) (NOTE) Delfino OrtaCOMPREHENSIVE METABOLIC [id number] 00:00:00* Test Item Value Reference Range Interpretation Comme nts GLUCOSE (test code = 2217) 92 MG/DL BUN (test code = 2208) 23 MG/DL CREATININE (test code = 2214) 1.27 MG/DL eGFR AMER. (test cod e = 78104) 55 ML/MIN/1.73 eGFR NON- AMER. (test code = 25285) 48 ML/MIN/1.73 CALC BUN/CREAT (test code = [...] 2219) 23 U/L Delfino OrtaHEPATITIS C REFLEX [id number] 00:00:00* Test Item Value Reference Range Interpretation Comme nts HEPATITIS C ANTIBODY (test c ode = 4675) NON-REACTIVE Delfino OrtaCBC W/AUTO [id number] 00:00:00* Test Item Value Reference Range Interpretation [...] code = 1016) (NOTE) Delfino OrtaCOMPREHENSIVE METABOLIC [id number] 00:00:00* Test Item Value Reference Range Interpretation Comme nts GLUCOSE (test code = 2217) 92 MG/DL BUN (test code = 2208) 23 MG/DL CREATININE (test code = 2214) 1.27 MG/DL eGFR AMER. (test cod e = 53601) 55 ML/MIN/1.73 eGFR NON- AMER. (test code = 26615) 48 ML/MIN/1.73 CALC BUN/CREAT (test code = [...] 2219) 23 U/L Delfino OrtaHEPATITIS C REFLEX [id number] 00:00:00* Test Item Value Reference Range Interpretation Comme nts HEPATITIS C ANTIBODY (test c ode = 4675) NON-REACTIVE Delfino OrtaCBC W/AUTO [id number] 00:00:00* Test Item Value Reference Range Interpretation [...] code = 1016) (NOTE) Delfino OrtaCOMPREHENSIVE METABOLIC [id number] 00:00:00* Test Item Value Reference Range Interpretation Comme nts GLUCOSE (test code = 2217) 92 MG/DL BUN (test code = 2208) 23 MG/DL CREATININE (test code = 2214) 1.27 MG/DL eGFR AMER. (test cod e = 97834) 55 ML/MIN/1.73 eGFR NON- AMER. (test code = 02283) 48 ML/MIN/1.73 CALC BUN/CREAT (test code = [...] (test code = 2219) 23 U/L Delfino rOtaHEPATITIS C REFLEX [id number] 00:00:00* Test Item Value Reference Range Interpretation Comme nts HEPATITIS C ANTIBODY (test c ode = 4675) NON-REACTIVE Delfino OrtaCBC W/AUTO [id number] 00:00:00* Test Item Value Reference Range Interpretation [...] code = 1016) (NOTE) Delfino OrtaCOMPREHENSIVE METABOLIC [id number] 00:00:00* Test Item Value Reference Range Interpretation Comme nts GLUCOSE (test code = 2217) 92 MG/DL BUN (test code = 2208) 23 MG/DL CREATININE (test code = 2214) 1.27 MG/DL eGFR AMER. (test cod e = 22313) 55 ML/MIN/1.73 eGFR NON- AMER. (test code = 68646) 48 ML/MIN/1.73 CALC BUN/CREAT (test code = [...] 2219) 23 U/L Delfino OrtaHEPATITIS C REFLEX [id number] 00:00:00* Test Item Value Reference Range Interpretation Comme nts HEPATITIS C ANTIBODY (test c ode = 4675) NON-REACTIVE Delfino OrtaCBC W/AUTO [id number] 00:00:00* Test Item Value Reference Range Interpretation [...] code = 1016) (NOTE) Delfino OrtaCOMPREHENSIVE METABOLIC [id number] 00:00:00* Test Item Value Reference Range Interpretation Comme nts GLUCOSE (test code = 2217) 92 MG/DL BUN (test code = 2208) 23 MG/DL CREATININE (test code = 2214) 1.27 MG/DL eGFR AMER. (test cod e = 50626) 55 ML/MIN/1.73 eGFR NON- AMER. (test code = 82409) 48 ML/MIN/1.73 CALC BUN/CREAT (test code = [...] 2219) 23 U/L Delfino OrtaHEPATITIS C REFLEX [id number] 00:00:00* Test Item Value Reference Range Interpretation Comme nts HEPATITIS C ANTIBODY (test c ode = 4675) NON-REACTIVE Delfino OrtaCBC W/AUTO [id number] 00:00:00* Test Item Value Reference Range Interpretation [...] code = 1016) (NOTE) Delfino OrtaCOMPREHENSIVE METABOLIC [id number] 00:00:00* Test Item Value Reference Range Interpretation Comme nts GLUCOSE (test code = 2217) 92 MG/DL BUN (test code = 2208) 23 MG/DL CREATININE (test code = 2214) 1.27 MG/DL eGFR AMER. (test cod e = 61131) 55 ML/MIN/1.73 eGFR NON- AMER. (test code = 88905) 48 ML/MIN/1.73 CALC BUN/CREAT (test code = [...] 2219) 23 U/L Delfino OrtaHEPATITIS C REFLEX [id number] 00:00:00* Test Item Value Reference Range Interpretation Comme nts HEPATITIS C ANTIBODY (test c ode = 4675) NON-REACTIVE Delfino Schumacher YouCBC W/AUTO [id number] 00:00:00* Test Item Value Reference Range Interpretation [...] (test code = 1016) (NOTE) CBC W/AUTO [id number] 00:00:00* Test Item Value Reference Range Interpretation [...] code = 1016) (NOTE) Delfino OrtaCOMPREHENSIVE METABOLIC [id number] 00:00:00* Test Item Value Reference Range Interpretation Comme nts GLUCOSE (test code = 2217) 92 MG/DL BUN (test code = 2208) 23 MG/DL CREATININE (test code = 2214) 1.27 MG/DL eGFR AMER. (test cod e = 33153) 55 ML/MIN/1.73 eGFR NON- AMER. (test code = 38781) 48 ML/MIN/1.73 CALC BUN/CREAT (test code = [...] code = 2219) 23 U/L CBC W/AUTO [id number] 00:00:00* Test Item Value Reference Range Interpretation [...] (test code = 1016) (NOTE) Delfino Schumacher AustinHEPATITIS C REFLEX [id number] 00:00:00* Test Item Value Reference Range Interpretation Comme nts HEPATITIS C ANTIBODY (test c ode = 4675) NON-REACTIVE COMPREHENSIVE METABOLIC [id number] 00:00:00* Test Item Value Reference Range Interpretation Comme nts GLUCOSE (test code = 2217) 92 MG/DL BUN (test code = 2208) 23 MG/DL CREATININE (test code = 2214) 1.27 MG/DL eGFR AMER. (test cod e = 63060) 55 ML/MIN/1.73 eGFR NON- AMER. (test code = 71952) 48 ML/MIN/1.73 CALC BUN/CREAT (test code = [...] (test code = 2219) 23 U[facility] [id number] 00:00:00* Test Item Value Reference Range Interpretation [...] (test code = 1016) (NOTE) COMPREHENSIVE METABOLIC [id number] 00:00:00* Test Item Value Reference Range Interpretation Comme nts GLUCOSE (test code = 2217) 92 MG/DL BUN (test code = 2208) 23 MG/DL CREATININE (test code = 2214) 1.27 MG/DL eGFR AMER. (test cod e = ) 55 ML/MIN/1.73 eGFR NON- AMER. (test code = 39041) 48 ML/MIN/1.73 CALC BUN/CREAT (test code = [...] = 2219) 23 U/L HEPATITIS C REFLEX [id number] 00:00:00* Test Item Value Reference Range Interpretation Comme nts HEPATITIS C ANTIBODY (test c ode = 4675) NON-REACTIVE CBC W/AUTO [id number] 00:00:00* Test Item Value Reference Range Interpretation [...] (test code = 1016) (NOTE) COMPREHENSIVE METABOLIC [id number] 00:00:00* Test Item Value Reference Range Interpretation Comme nts GLUCOSE (test code = 2217) 92 MG/DL BUN (test code = 2208) 23 MG/DL CREATININE (test code = 2214) 1.27 MG/DL eGFR AMER. (test cod e = 38495) 55 ML/MIN/1.73 eGFR NON- AMER. (test code = 19231) 48 ML/MIN/1.73 CALC BUN/CREAT (test code = [...] = 2219) 23 U/L HEPATITIS C REFLEX [id number] 00:00:00* Test Item Value Reference Range Interpretation Comme nts HEPATITIS C ANTIBODY (test c ode = 4675) NON-REACTIVE CBC W/AUTO [id number] 00:00:00* Test Item Value Reference Range Interpretation [...] (test code = 1016) (NOTE) COMPREHENSIVE METABOLIC [id number] 00:00:00* Test Item Value Reference Range Interpretation Comme nts GLUCOSE (test code = 2217) 92 MG/DL BUN (test code = 2208) 23 MG/DL CREATININE (test code = 2214) 1.27 MG/DL eGFR AMER. (test cod e = 86391) 55 ML/MIN/1.73 eGFR NON- AMER. (test code = 51535) 48 ML/MIN/1.73 CALC BUN/CREAT (test code = [...] = 2219) 23 U/L HEPATITIS C REFLEX [id number] 00:00:00* Test Item Value Reference Range Interpretation Comme nts HEPATITIS C ANTIBODY (test c ode = 4675) NON-REACTIVE HEPATITIS C REFLEX [id number] 00:00:00* Test Item Value Reference Range Interpretation Comme nts HEPATITIS C ANTIBODY (test c ode = 4675) NON-REACTIVE Delfinosurinder OrtaCBC W/AUTO [id number] 00:00:00* Test Item Value Reference Range Interpretation [...] K/UL COMMENTS (test code = 1016) (NOTE) Delfnio OrtaCOMPREHENSIVE METABOLIC [id number] 00:00:00* Test Item Value Reference Range Interpretation Comme nts GLUCOSE (test code = 2217) 92 MG/DL BUN (test code = 2208) 23 MG/DL CREATININE (test code = 2214) 1.27 MG/DL eGFR AMER. (test cod e = 05896) 55 ML/MIN/1.73 eGFR NON- AMER. (test code = 81702) 48 ML/MIN/1.73 CALC BUN/CREAT (test code = [...] 2219) 23 U/L Delfino OrtaHEPATITIS C REFLEX [id number] 00:00:00* Test Item Value Reference Range Interpretation Comme nts HEPATITIS C ANTIBODY (test c ode = 4675) NON-REACTIVE Delfino OrtaCBC W/AUTO [id number] 00:00:00* Test Item Value Reference Range Interpretation [...] code = 1016) (NOTE) Delfino OrtaCOMPREHENSIVE METABOLIC [id number] 00:00:00* Test Item Value Reference Range Interpretation Comme nts GLUCOSE (test code = 2217) 92 MG/DL BUN (test code = 2208) 23 MG/DL CREATININE (test code = 2214) 1.27 MG/DL eGFR AMER. (test cod e = 61833) 55 ML/MIN/1.73 eGFR NON- AMER. (test code = 75098) 48 ML/MIN/1.73 CALC BUN/CREAT (test code = [...] 2219) 23 U/L Delfino OrtaHEPATITIS C REFLEX [id number] 00:00:00* Test Item Value Reference Range Interpretation Comme nts HEPATITIS C ANTIBODY (test c ode = 4675) NON-REACTIVE Delfino OrtaCOMPREHENSIVE METABOLIC [id number] 00:00:00* Test Item Value Reference Range Interpretation Comme nts GLUCOSE (test code = 2217) 92 MG/DL BUN (test code = 2208) 23 MG/DL CREATININE (test code = 2214) 1.27 MG/DL eGFR AMER. (test cod e = 45428) 55 ML/MIN/1.73 eGFR NON- AMER. (test code = 39764) 48 ML/MIN/1.73 CALC BUN/CREAT (test code = [...] = 2219) 23 U/L Delfino OrtaCBC W/AUTO [id number] 00:00:00* Test Item Value Reference Range Interpretation [...] code = 1016) (NOTE) Delfino OrtaCOMPREHENSIVE METABOLIC [id number] 00:00:00* Test Item Value Reference Range Interpretation Comme nts GLUCOSE (test code = 2217) 92 MG/DL BUN (test code = 2208) 23 MG/DL CREATININE (test code = 2214) 1.27 MG/DL eGFR AMER. (test cod e = 77063) 55 ML/MIN/1.73 eGFR NON- AMER. (test code = 33079) 48 ML/MIN/1.73 CALC BUN/CREAT (test code = [...] 2219) 23 U/L Delfino OrtaHEPATITIS C REFLEX [id number] 00:00:00* Test Item Value Reference Range Interpretation Comme nts HEPATITIS C ANTIBODY (test c ode = 4675) NON-REACTIVE Delfino Schumacher YouCBC W/AUTO [id number] 00:00:00* Test Item Value Reference Range Interpretation [...] code = 1016) (NOTE) Delfino OrtaCOMPREHENSIVE METABOLIC [id number] 00:00:00* Test Item Value Reference Range Interpretation Comme nts GLUCOSE (test code = 2217) 88 MG/DL BUN (test code = 2208) 24 MG/DL CREATININE (test code = 2214) 0.94 MG/DL eGFR AMER. (test cod e = 89278) 80 ML/MIN/1.73 eGFR NON- AMER. (test code = 84239) 69 ML/MIN/1.73 CALC BUN/CREAT (test code = [...] = 2219) 10 U/L Delfino F AustinLIPID [id number] 00:00:00* Test Item Value Reference Range Interpretation Comme nts CHOLESTEROL (test code = 2210) 211 MG/DL TRIGLYCERIDES (test code = 2232) 52 MG/DL HDL CHOLESTEROL (test code = 2220) 90 MG/DL CALC LDL CHOL (test code = 2237) 111 MG/DL RISK RATIO LDL/HDL (test cod e = 2238) 1.23 RATIO Delfino OrtaCBC W/AUTO [id number] 00:00:00* Test Item Value Reference Range Interpretation [...] code = 1016) (NOTE) Delfino OrtaCOMPREHENSIVE METABOLIC [id number] 00:00:00* Test Item Value Reference Range Interpretation Comme nts GLUCOSE (test code = 2217) 88 MG/DL BUN (test code = 2208) 24 MG/DL CREATININE (test code = 2214) 0.94 MG/DL eGFR AMER. (test cod e = 07062) 80 ML/MIN/1.73 eGFR NON- AMER. (test code = 31391) 69 ML/MIN/1.73 CALC BUN/CREAT (test code = [...] code = 2219) 10 U/L Delfino OrtaLIPID [id number] 00:00:00* Test Item Value Reference Range Interpretation Comme nts CHOLESTEROL (test code = 2210) 211 MG/DL TRIGLYCERIDES (test code = 2232) 52 MG/DL HDL CHOLESTEROL (test code = 2220) 90 MG/DL CALC LDL CHOL (test code = 2237) 111 MG/DL RISK RATIO LDL/HDL (test cod e = 2238) 1.23 RATIO Delfino Schumacher YouCBC W/AUTO [id number] 00:00:00* Test Item Value Reference Range Interpretation [...] = 1016) (NOTE) Delfino Schumacher YouCOMPREHENSIVE METABOLIC [id number] 00:00:00* Test Item Value Reference Range Interpretation Comme nts GLUCOSE (test code = 2217) 88 MG/DL BUN (test code = 2208) 24 MG/DL CREATININE (test code = 2214) 0.94 MG/DL eGFR AMER. (test cod e = 02032) 80 ML/MIN/1.73 eGFR NON- AMER. (test code = 01617) 69 ML/MIN/1.73 CALC BUN/CREAT (test code = [...] code = 2219) 10 U/L Delfino OrtaLIPID [id number] 00:00:00* Test Item Value Reference Range Interpretation Comme nts CHOLESTEROL (test code = 2210) 211 MG/DL TRIGLYCERIDES (test code = 2232) 52 MG/DL HDL CHOLESTEROL (test code = 2220) 90 MG/DL CALC LDL CHOL (test code = 2237) 111 MG/DL RISK RATIO LDL/HDL (test cod e = 2238) 1.23 RATIO Delfino OrtaCBC W/AUTO [id number] 00:00:00* Test Item Value Reference Range Interpretation [...] code = 1016) (NOTE) Delfino OrtaCOMPREHENSIVE METABOLIC [id number] 00:00:00* Test Item Value Reference Range Interpretation Comme nts GLUCOSE (test code = 2217) 88 MG/DL BUN (test code = 2208) 24 MG/DL CREATININE (test code = 2214) 0.94 MG/DL eGFR AMER. (test cod e = 86416) 80 ML/MIN/1.73 eGFR NON- AMER. (test code = 40076) 69 ML/MIN/1.73 CALC BUN/CREAT (test code = [...] code = 2219) 10 U/L Delfino OrtaLIPID [id number] 00:00:00* Test Item Value Reference Range Interpretation Comme nts CHOLESTEROL (test code = 2210) 211 MG/DL TRIGLYCERIDES (test code = 2232) 52 MG/DL HDL CHOLESTEROL (test code = 2220) 90 MG/DL CALC LDL CHOL (test code = 2237) 111 MG/DL RISK RATIO LDL/HDL (test cod e = 2238) 1.23 RATIO Delfino OrtaCBC W/AUTO [id number] 00:00:00* Test Item Value Reference Range Interpretation [...] = 1016) (NOTE) Delfino Schumacher YouCOMPREHENSIVE METABOLIC [id number] 00:00:00* Test Item Value Reference Range Interpretation Comme nts GLUCOSE (test code = 2217) 88 MG/DL BUN (test code = 2208) 24 MG/DL CREATININE (test code = 2214) 0.94 MG/DL eGFR AMER. (test cod e = 12854) 80 ML/MIN/1.73 eGFR NON- AMER. (test code = 28495) 69 ML/MIN/1.73 CALC BUN/CREAT (test code = [...] = 2219) 10 U/L Delfino Schumacher YouLIPID [id number] 00:00:00* Test Item Value Reference Range Interpretation Comme nts CHOLESTEROL (test code = 2210) 211 MG/DL TRIGLYCERIDES (test code = 2232) 52 MG/DL HDL CHOLESTEROL (test code = 2220) 90 MG/DL CALC LDL CHOL (test code = 2237) 111 MG/DL RISK RATIO LDL/HDL (test cod e = 2238) 1.23 RATIO Delfino OrtaCBC W/AUTO [id number] 00:00:00* Test Item Value Reference Range Interpretation [...] = 1016) (NOTE) Delfino Schumacher YouCOMPREHENSIVE METABOLIC [id number] 00:00:00* Test Item Value Reference Range Interpretation Comme nts GLUCOSE (test code = 2217) 88 MG/DL BUN (test code = 2208) 24 MG/DL CREATININE (test code = 2214) 0.94 MG/DL eGFR AMER. (test cod e = 78563) 80 ML/MIN/1.73 eGFR NON- AMER. (test code = 56626) 69 ML/MIN/1.73 CALC BUN/CREAT (test code = [...] code = 2219) 10 U/L Delfino OrtaLIPID [id number] 00:00:00* Test Item Value Reference Range Interpretation Comme nts CHOLESTEROL (test code = 2210) 211 MG/DL TRIGLYCERIDES (test code = 2232) 52 MG/DL HDL CHOLESTEROL (test code = 2220) 90 MG/DL CALC LDL CHOL (test code = 2237) 111 MG/DL RISK RATIO LDL/HDL (test cod e = 2238) 1.23 RATIO Delfino OrtaCBC W/AUTO [id number] 00:00:00* Test Item Value Reference Range Interpretation [...] code = 1016) (NOTE) Delfino OrtaCOMPREHENSIVE METABOLIC [id number] 00:00:00* Test Item Value Reference Range Interpretation Comme nts GLUCOSE (test code = 2217) 88 MG/DL BUN (test code = 2208) 24 MG/DL CREATININE (test code = 2214) 0.94 MG/DL eGFR AMER. (test cod e = 91628) 80 ML/MIN/1.73 eGFR NON- AMER. (test code = 18405) 69 ML/MIN/1.73 CALC BUN/CREAT (test code = [...] = 2219) 10 U/L Delfino Endy YouLIPID [id number] 00:00:00* Test Item Value Reference Range Interpretation Comme nts CHOLESTEROL (test code = 2210) 211 MG/DL TRIGLYCERIDES (test code = 2232) 52 MG/DL HDL CHOLESTEROL (test code = 2220) 90 MG/DL CALC LDL CHOL (test code = 2237) 111 MG/DL RISK RATIO LDL/HDL (test cod e = 2238) 1.23 RATIO Delfino OrtaCBC W/AUTO [id number] 00:00:00* Test Item Value Reference Range Interpretation [...] code = 1016) (NOTE) Delfino OrtaCOMPREHENSIVE METABOLIC [id number] 00:00:00* Test Item Value Reference Range Interpretation Comme nts GLUCOSE (test code = 2217) 88 MG/DL BUN (test code = 2208) 24 MG/DL CREATININE (test code = 2214) 0.94 MG/DL eGFR AMER. (test cod e = 36247) 80 ML/MIN/1.73 eGFR NON- AMER. (test code = 45613) 69 ML/MIN/1.73 CALC BUN/CREAT (test code = [...] code = 2219) 10 U/L Delfino OrtaLIPID [id number] 00:00:00* Test Item Value Reference Range Interpretation Comme nts CHOLESTEROL (test code = 2210) 211 MG/DL TRIGLYCERIDES (test code = 2232) 52 MG/DL HDL CHOLESTEROL (test code = 2220) 90 MG/DL CALC LDL CHOL (test code = 2237) 111 MG/DL RISK RATIO LDL/HDL (test cod e = 2238) 1.23 RATIO Delfino OrtaCBC W/AUTO [id number] 00:00:00* Test Item Value Reference Range Interpretation [...] code = 1016) (NOTE) Delfino OrtaCOMPREHENSIVE METABOLIC [id number] 00:00:00* Test Item Value Reference Range Interpretation Comme nts GLUCOSE (test code = 2217) 88 MG/DL BUN (test code = 2208) 24 MG/DL CREATININE (test code = 2214) 0.94 MG/DL eGFR AMER. (test cod e = 57748) 80 ML/MIN/1.73 eGFR NON- AMER. (test code = 16419) 69 ML/MIN/1.73 CALC BUN/CREAT (test code = [...] = 2219) 10 U/L Delfino Schumacher AustinLIPID [id number] 00:00:00* Test Item Value Reference Range Interpretation Comme nts CHOLESTEROL (test code = 2210) 211 MG/DL TRIGLYCERIDES (test code = 2232) 52 MG/DL HDL CHOLESTEROL (test code = 2220) 90 MG/DL CALC LDL CHOL (test code = 2237) 111 MG/DL RISK RATIO LDL/HDL (test cod e = 2238) 1.23 RATIO Delfino OrtaCBC W/AUTO [id number] 00:00:00* Test Item Value Reference Range Interpretation [...] code = 1016) (NOTE) Delfino OrtaCOMPREHENSIVE METABOLIC [id number] 00:00:00* Test Item Value Reference Range Interpretation Comme nts GLUCOSE (test code = 2217) 88 MG/DL BUN (test code = 2208) 24 MG/DL CREATININE (test code = 2214) 0.94 MG/DL eGFR AMER. (test cod e = 02378) 80 ML/MIN/1.73 eGFR NON- AMER. (test code = 98987) 69 ML/MIN/1.73 CALC BUN/CREAT (test code = [...] code = 2219) 10 U/L Delfino OrtaLIPID [id number] 00:00:00* Test Item Value Reference Range Interpretation Comme nts CHOLESTEROL (test code = 2210) 211 MG/DL TRIGLYCERIDES (test code = 2232) 52 MG/DL HDL CHOLESTEROL (test code = 2220) 90 MG/DL CALC LDL CHOL (test code = 2237) 111 MG/DL RISK RATIO LDL/HDL (test cod e = 2238) 1.23 RATIO Delfino OrtaCBC W/AUTO [id number] 00:00:00* Test Item Value Reference Range Interpretation [...] code = 1016) (NOTE) Delfino OrtaCOMPREHENSIVE METABOLIC [id number] 00:00:00* Test Item Value Reference Range Interpretation Comme nts GLUCOSE (test code = 2217) 88 MG/DL BUN (test code = 2208) 24 MG/DL CREATININE (test code = 2214) 0.94 MG/DL eGFR AMER. (test cod e = 59294) 80 ML/MIN/1.73 eGFR NON- AMER. (test code = 46773) 69 ML/MIN/1.73 CALC BUN/CREAT (test code = [...] (test code = 2219) 10 U/L Delfino rOtaLIPID [id number] 00:00:00* Test Item Value Reference Range Interpretation Comme nts CHOLESTEROL (test code = 2210) 211 MG/DL TRIGLYCERIDES (test code = 2232) 52 MG/DL HDL CHOLESTEROL (test code = 2220) 90 MG/DL CALC LDL CHOL (test code = 2237) 111 MG/DL RISK RATIO LDL/HDL (test cod e = 2238) 1.23 RATIO Delfino OrtaCBC W/AUTO [id number] 00:00:00* Test Item Value Reference Range Interpretation [...] code = 1016) (NOTE) Delfino OrtaCOMPREHENSIVE METABOLIC [id number] 00:00:00* Test Item Value Reference Range Interpretation Comme nts GLUCOSE (test code = 2217) 88 MG/DL BUN (test code = 2208) 24 MG/DL CREATININE (test code = 2214) 0.94 MG/DL eGFR AMER. (test cod e = 89507) 80 ML/MIN/1.73 eGFR NON- AMER. (test code = 18617) 69 ML/MIN/1.73 CALC BUN/CREAT (test code = [...] code = 2219) 10 U/L Delfino OrtaLIPID [id number] 00:00:00* Test Item Value Reference Range Interpretation Comme nts CHOLESTEROL (test code = 2210) 211 MG/DL TRIGLYCERIDES (test code = 2232) 52 MG/DL HDL CHOLESTEROL (test code = 2220) 90 MG/DL CALC LDL CHOL (test code = 2237) 111 MG/DL RISK RATIO LDL/HDL (test cod e = 2238) 1.23 RATIO Delfino OrtaCBC W/AUTO [id number] 00:00:00* Test Item Value Reference Range Interpretation [...] code = 1016) (NOTE) Delfino OrtaCOMPREHENSIVE METABOLIC [id number] 00:00:00* Test Item Value Reference Range Interpretation Comme nts GLUCOSE (test code = 2217) 88 MG/DL BUN (test code = 2208) 24 MG/DL CREATININE (test code = 2214) 0.94 MG/DL eGFR AMER. (test cod e = 03651) 80 ML/MIN/1.73 eGFR NON- AMER. (test code = 62315) 69 ML/MIN/1.73 CALC BUN/CREAT (test code = [...] code = 2219) 10 U/L Delfino OrtaLIPID [id number] 00:00:00* Test Item Value Reference Range Interpretation Comme nts CHOLESTEROL (test code = 2210) 211 MG/DL TRIGLYCERIDES (test code = 2232) 52 MG/DL HDL CHOLESTEROL (test code = 2220) 90 MG/DL CALC LDL CHOL (test code = 2237) 111 MG/DL RISK RATIO LDL/HDL (test cod e = 2238) 1.23 RATIO Delfino OrtaCBC W/AUTO [id number] 00:00:00* Test Item Value Reference Range Interpretation [...] code = 1016) (NOTE) Delfino OrtaCOMPREHENSIVE METABOLIC [id number] 00:00:00* Test Item Value Reference Range Interpretation Comme nts GLUCOSE (test code = 2217) 88 MG/DL BUN (test code = 2208) 24 MG/DL CREATININE (test code = 2214) 0.94 MG/DL eGFR AMER. (test cod e = 59988) 80 ML/MIN/1.73 eGFR NON- AMER. (test code = 88377) 69 ML/MIN/1.73 CALC BUN/CREAT (test code = [...] code = 2219) 10 U/L Delfino OrtaLIPID [id number] 00:00:00* Test Item Value Reference Range Interpretation Comme nts CHOLESTEROL (test code = 2210) 211 MG/DL TRIGLYCERIDES (test code = 2232) 52 MG/DL HDL CHOLESTEROL (test code = 2220) 90 MG/DL CALC LDL CHOL (test code = 2237) 111 MG/DL RISK RATIO LDL/HDL (test cod e = 2238) 1.23 RATIO Delfino OrtaCBC W/AUTO [id number] 00:00:00* Test Item Value Reference Range Interpretation [...] (test code = 1016) (NOTE) COMPREHENSIVE METABOLIC [id number] 00:00:00* Test Item Value Reference Range Interpretation Comme nts GLUCOSE (test code = 2217) 88 MG/DL BUN (test code = 2208) 24 MG/DL CREATININE (test code = 2214) 0.94 MG/DL eGFR AMER. (test cod e = 83786) 80 ML/MIN/1.73 eGFR NON- AMER. (test code = 74871) 69 ML/MIN/1.73 CALC BUN/CREAT (test code = [...] code = 2219) 10 U/L CBC W/AUTO [id number] 00:00:00* Test Item Value Reference Range Interpretation [...] code = 1016) (NOTE) Delfino Schumacher AustinLIPID [id number] 00:00:00* Test Item Value Reference Range Interpretation Comme nts CHOLESTEROL (test code = 2210) 211 MG/DL TRIGLYCERIDES (test code = 2232) 52 MG/DL HDL CHOLESTEROL (test code = 2220) 90 MG/DL CALC LDL CHOL (test code = 2237) 111 MG/DL RISK RATIO LDL/HDL (test cod e = 2238) 1.23 RATIO CBC W/AUTO [id number] 00:00:00* Test Item Value Reference Range Interpretation [...] (test code = 1016) (NOTE) COMPREHENSIVE METABOLIC [id number] 00:00:00* Test Item Value Reference Range Interpretation Comme nts GLUCOSE (test code = 2217) 88 MG/DL BUN (test code = 2208) 24 MG/DL CREATININE (test code = 2214) 0.94 MG/DL eGFR AMER. (test cod e = 75745) 80 ML/MIN/1.73 eGFR NON- AMER. (test code = 47182) 69 ML/MIN/1.73 CALC BUN/CREAT (test code = [...] (test code = 2219) 10 U/L LIPID [id number] 00:00:00* Test Item Value Reference Range Interpretation Comme nts CHOLESTEROL (test code = 2210) 211 MG/DL TRIGLYCERIDES (test code = 2232) 52 MG/DL HDL CHOLESTEROL (test code = 2220) 90 MG/DL CALC LDL CHOL (test code = 2237) 111 MG/DL RISK RATIO LDL/HDL (test cod e = 2238) 1.23 RATIO CBC W/AUTO [id number] 00:00:00* Test Item Value Reference Range Interpretation [...] (test code = 1016) (NOTE) COMPREHENSIVE METABOLIC [id number] 00:00:00* Test Item Value Reference Range Interpretation Comme nts GLUCOSE (test code = 2217) 88 MG/DL BUN (test code = 2208) 24 MG/DL CREATININE (test code = 2214) 0.94 MG/DL eGFR AMER. (test cod e = 30119) 80 ML/MIN/1.73 eGFR NON- AMER. (test code = 74364) 69 ML/MIN/1.73 CALC BUN/CREAT (test code = [...] (test code = 2219) 10 U/L LIPID [id number] 00:00:00* Test Item Value Reference Range Interpretation Comme nts CHOLESTEROL (test code = 2210) 211 MG/DL TRIGLYCERIDES (test code = 2232) 52 MG/DL HDL CHOLESTEROL (test code = 2220) 90 MG/DL CALC LDL CHOL (test code = 2237) 111 MG/DL RISK RATIO LDL/HDL (test cod e = 2238) 1.23 RATIO CBC W/AUTO [id number] 00:00:00* Test Item Value Reference Range Interpretation [...] (test code = 1016) (NOTE) COMPREHENSIVE METABOLIC [id number] 00:00:00* Test Item Value Reference Range Interpretation Comme nts GLUCOSE (test code = 2217) 88 MG/DL BUN (test code = 2208) 24 MG/DL CREATININE (test code = 2214) 0.94 MG/DL eGFR AMER. (test cod e = 25624) 80 ML/MIN/1.73 eGFR NON- AMER. (test code = 88492) 69 ML/MIN/1.73 CALC BUN/CREAT (test code = [...] (test code = 2219) 10 U/L LIPID [id number] 00:00:00* Test Item Value Reference Range Interpretation Comme nts CHOLESTEROL (test code = 2210) 211 MG/DL TRIGLYCERIDES (test code = 2232) 52 MG/DL HDL CHOLESTEROL (test code = 2220) 90 MG/DL CALC LDL CHOL (test code = 2237) 111 MG/DL RISK RATIO LDL/HDL (test cod e = 2238) 1.23 RATIO COMPREHENSIVE METABOLIC [id number] 00:00:00* Test Item Value Reference Range Interpretation Comme nts GLUCOSE (test code = 2217) 88 MG/DL BUN (test code = 8) 24 MG/DL CREATININE (test code = 2214) 0.94 MG/DL eGFR AMER. (test cod e = 22869) 80 ML/MIN/1.73 eGFR NON- AMER. (test code = 04733) 69 ML/MIN/1.73 CALC BUN/CREAT (test code = [...] code = 2219) 10 U/L Delfino OrtaLIPID [id number] 00:00:00* Test Item Value Reference Range Interpretation Comme nts CHOLESTEROL (test code = 2210) 211 MG/DL TRIGLYCERIDES (test code = 2232) 52 MG/DL HDL CHOLESTEROL (test code = 2220) 90 MG/DL CALC LDL CHOL (test code = 2237) 111 MG/DL RISK RATIO LDL/HDL (test cod e = 2238) 1.23 RATIO Delfino Schumacher RUSTC W/AUTO [id number] 00:00:00* Test Item Value Reference Range Interpretation [...] (test code = 1016) (NOTE) Delfino Schumacher RUSTC W/AUTO [id number] 00:00:00* Test Item Value Reference Range Interpretation [...] code = 1016) (NOTE) Delfino OrtaCOMPREHENSIVE METABOLIC [id number] 00:00:00* Test Item Value Reference Range Interpretation Comme nts GLUCOSE (test code = 2217) 88 MG/DL BUN (test code = 2208) 24 MG/DL CREATININE (test code = 2214) 0.94 MG/DL eGFR AMER. (test cod e = 77700) 80 ML/MIN/1.73 eGFR NON- AMER. (test code = 23573) 69 ML/MIN/1.73 CALC BUN/CREAT (test code = [...] code = 2219) 10 U/L Delfino OrtaLIPID [id number] 00:00:00* Test Item Value Reference Range Interpretation Comme nts CHOLESTEROL (test code = 2210) 211 MG/DL TRIGLYCERIDES (test code = 2232) 52 MG/DL HDL CHOLESTEROL (test code = 2220) 90 MG/DL CALC LDL CHOL (test code = 2237) 111 MG/DL RISK RATIO LDL/HDL (test cod e = 2238) 1.23 RATIO Delfino Schumacher YouCBC W/AUTO [id number] 00:00:00* Test Item Value Reference Range Interpretation [...] = 1016) (NOTE) Delfino Schumacher YouCOMPREHENSIVE METABOLIC [id number] 00:00:00* Test Item Value Reference Range Interpretation Comme nts GLUCOSE (test code = 2217) 88 MG/DL BUN (test code = 2208) 24 MG/DL CREATININE (test code = 2214) 0.94 MG/DL eGFR AMER. (test cod e = 48304) 80 ML/MIN/1.73 eGFR NON- AMER. (test code = 00621) 69 ML/MIN/1.73 CALC BUN/CREAT (test code = [...] code = 2219) 10 U/L Delfino OrtaLIPID [id number] 00:00:00* Test Item Value Reference Range Interpretation Comme nts CHOLESTEROL (test code = 2210) 211 MG/DL TRIGLYCERIDES (test code = 2232) 52 MG/DL HDL CHOLESTEROL (test code = 2220) 90 MG/DL CALC LDL CHOL (test code = 2237) 111 MG/DL RISK RATIO LDL/HDL (test cod e = 2238) 1.23 RATIO Delfino OrtaCBC W/AUTO [id number] 00:00:00* Test Item Value Reference Range Interpretation [...] code = 1016) (NOTE) Delfino OrtaCOMPREHENSIVE METABOLIC [id number] 00:00:00* Test Item Value Reference Range Interpretation Comme nts GLUCOSE (test code = 2217) 88 MG/DL BUN (test code = 2208) 24 MG/DL CREATININE (test code = 2214) 0.94 MG/DL eGFR AMER. (test cod e = 35224) 80 ML/MIN/1.73 eGFR NON- AMER. (test code = 43738) 69 ML/MIN/1.73 CALC BUN/CREAT (test code = [...] code = 2219) 10 U/L Delfino OrtaLIPID [id number] 00:00:00* Test Item Value Reference Range Interpretation Comme nts CHOLESTEROL (test code = 2210) 211 MG/DL TRIGLYCERIDES (test code = 2232) 52 MG/DL HDL CHOLESTEROL (test code = 2220) 90 MG/DL CALC LDL CHOL (test code = 2237) 111 MG/DL RISK RATIO LDL/HDL (test cod e = 2238) 1.23 RATIO Delfino OrtaCOMPREHENSIVE METABOLIC [id number] 00:00:00* Test Item Value Reference Range Interpretation Comme nts GLUCOSE (test code = 2217) 88 MG/DL BUN (test code = 2208) 24 MG/DL CREATININE (test code = 2214) 0.94 MG/DL eGFR AMER. (test cod e = 79822) 80 ML/MIN/1.73 eGFR NON- AMER. (test code = 45314) 69 ML/MIN/1.73 CALC BUN/CREAT (test code = [...] code = 2219) 10 U/L Delfino OrtaLIPID [id number] 00:00:00* Test Item Value Reference Range Interpretation Comme nts CHOLESTEROL (test code = 2210) 211 MG/DL TRIGLYCERIDES (test code = 2232) 52 MG/DL HDL CHOLESTEROL (test code = 2220) 90 MG/DL CALC LDL CHOL (test code = 2237) 111 MG/DL RISK RATIO LDL/HDL (test cod e = 2238) 1.23 RATIO Delfino OrtaCBC W/AUTO [id number] 00:00:00* Test Item Value Reference Range Interpretation [...] = 1016) (NOTE) Delfino OrtaVITAMIN D, 25 [id number] 00:00:00* Test Item Value Reference Range Interpretation Comme nts VITAMIN D, 25 OH (test code = 4958) 36 NG/ML Delfino OrtaURIC [id number] 00:00:00* Test Item Value Reference Range Interpretation Comme nts URIC ACID (test code = 2233) 7.5 MG/DL Delfino OrtaVITAMIN D, 25 [id number] 00:00:00* Test Item Value Reference Range Interpretation Comme nts VITAMIN D, 25 OH (test code = 4958) 36 NG/ML Delfino Schumacher AustinURIC [id number] 00:00:00* Test Item Value Reference Range Interpretation Comme nts URIC ACID (test code = 2233) 7.5 MG/DL Delfino Schumacher AustinVITAMIN D, 25 [id number] 00:00:00* Test Item Value Reference Range Interpretation Comme nts VITAMIN D, 25 OH (test code = 4958) 36 NG/ML Delfino Schumacher AustinURIC [id number] 00:00:00* Test Item Value Reference Range Interpretation Comme nts URIC ACID (test code = 2233) 7.5 MG/DL Delfino Schumacher AustinVITAMIN D, 25 [id number] 00:00:00* Test Item Value Reference Range Interpretation Comme nts VITAMIN D, 25 OH (test code = 4958) 36 NG/ML Delfino Schumacher AustinURIC [id number] 00:00:00* Test Item Value Reference Range Interpretation Comme nts URIC ACID (test code = 2233) 7.5 MG/DL Delfino Schumacher AustinVITAMIN D, 25 [id number] 00:00:00* Test Item Value Reference Range Interpretation Comme nts VITAMIN D, 25 OH (test code = 4958) 36 NG/ML Delfino Schumacher AustinURIC [id number] 00:00:00* Test Item Value Reference Range Interpretation Comme nts URIC ACID (test code = 2233) 7.5 MG/DL Delfino Schumacher AustinVITAMIN D, 25 [id number] 00:00:00* Test Item Value Reference Range Interpretation Comme nts VITAMIN D, 25 OH (test code = 4958) 36 NG/ML Delfino Schumacher AustinURIC [id number] 00:00:00* Test Item Value Reference Range Interpretation Comme nts URIC ACID (test code = 2233) 7.5 MG/DL Delfino Schumacher AustinVITAMIN D, 25 [id number] 00:00:00* Test Item Value Reference Range Interpretation Comme nts VITAMIN D, 25 OH (test code = 4958) 36 NG/ML Delfino Schumacher AustinURIC [id number] 00:00:00* Test Item Value Reference Range Interpretation Comme nts URIC ACID (test code = 2233) 7.5 MG/DL Delfino Schumacher AustinVITAMIN D, 25 [id number] 00:00:00* Test Item Value Reference Range Interpretation Comme nts VITAMIN D, 25 OH (test code = 4958) 36 NG/ML Delfino Schumacher AustinURIC [id number] 00:00:00* Test Item Value Reference Range Interpretation Comme nts URIC ACID (test code = 2233) 7.5 MG/DL Delfino Schumacher AustinVITAMIN D, 25 [id number] 00:00:00* Test Item Value Reference Range Interpretation Comme nts VITAMIN D, 25 OH (test code = 4958) 36 NG/ML Delfino Schumacher AustinURIC [id number] 00:00:00* Test Item Value Reference Range Interpretation Comme nts URIC ACID (test code = 2233) 7.5 MG/DL Delfino Schumacher AustinVITAMIN D, 25 [id number] 00:00:00* Test Item Value Reference Range Interpretation Comme nts VITAMIN D, 25 OH (test code = 4958) 36 NG/ML Delfino Schumacher AustinURIC [id number] 00:00:00* Test Item Value Reference Range Interpretation Comme nts URIC ACID (test code = 2233) 7.5 MG/DL Delfino Schumacher AustinVITAMIN D, 25 [id number] 00:00:00* Test Item Value Reference Range Interpretation Comme nts VITAMIN D, 25 OH (test code = 4958) 36 NG/ML Delfino Schumacher AustinURIC [id number] 00:00:00* Test Item Value Reference Range Interpretation Comme nts URIC ACID (test code = 2233) 7.5 MG/DL Delfino Schumacher AustinVITAMIN D, 25 [id number] 00:00:00* Test Item Value Reference Range Interpretation Comme nts VITAMIN D, 25 OH (test code = 4958) 36 NG/ML Delfino Schumacher AustinURIC [id number] 00:00:00* Test Item Value Reference Range Interpretation Comme nts URIC ACID (test code = 2233) 7.5 MG/DL Delfino Schumacher AustinVITAMIN D, 25 [id number] 00:00:00* Test Item Value Reference Range Interpretation Comme nts VITAMIN D, 25 OH (test code = 4958) 36 NG/ML Delfino Schumacher AustinURIC [id number] 00:00:00* Test Item Value Reference Range Interpretation Comme nts URIC ACID (test code = 2233) 7.5 MG/DL Delfino Schumacher AustinURIC [id number] 00:00:00* Test Item Value Reference Range Interpretation Comme nts URIC ACID (test code = 2233) 7.5 MG/DL VITAMIN D, 25 [id number] 00:00:00* Test Item Value Reference Range Interpretation Comme nts VITAMIN D, 25 OH (test code = 4958) 36 NG/ML Delfino Schumacher AustinURIC [id number] 00:00:00* Test Item Value Reference Range Interpretation Comme nts URIC ACID (test code = 2233) 7.5 MG/DL Delfino OrtaVITAMIN D, 25 [id number] 00:00:00* Test Item Value Reference Range Interpretation Comme nts VITAMIN D, 25 OH (test code = 4958) 36 NG/ML URIC [id number] 00:00:00* Test Item Value Reference Range Interpretation Comme nts URIC ACID (test code = 2233) 7.5 MG/DL Delfino Schumacher AustinURIC [id number] 00:00:00* Test Item Value Reference Range Interpretation Comme nts URIC ACID (test code = 2233) 7.5 MG/DL VITAMIN D, 25 [id number] 00:00:00* Test Item Value Reference Range Interpretation Comme nts VITAMIN D, 25 OH (test code = 4958) 36 NG/ML URIC [id number] 00:00:00* Test Item Value Reference Range Interpretation Comme nts URIC ACID (test code = 2233) 7.5 MG/DL VITAMIN D, 25 [id number] 00:00:00* Test Item Value Reference Range Interpretation Comme nts VITAMIN D, 25 OH (test code = 4958) 36 NG/ML URIC [id number] 00:00:00* Test Item Value Reference Range Interpretation Comme nts URIC ACID (test code = 2233) 7.5 MG/DL VITAMIN D, 25 [id number] 00:00:00* Test Item Value Reference Range Interpretation Comme nts VITAMIN D, 25 OH (test code = 4958) 36 NG/ML VITAMIN D, 25 [id number] 00:00:00* Test Item Value Reference Range Interpretation Comme nts VITAMIN D, 25 OH (test code = 4958) 36 NG/ML Delfino Schumacher AustinURIC [id number] 00:00:00* Test Item Value Reference Range Interpretation Comme nts URIC ACID (test code = 2233) 7.5 MG/DL Delfino Schumacher AustinVITAMIN D, 25 [id number] 00:00:00* Test Item Value Reference Range Interpretation Comme nts VITAMIN D, 25 OH (test code = 4958) 36 NG/ML Delfino Schumacher AustinURIC [id number] 00:00:00* Test Item Value Reference Range Interpretation Comme nts URIC ACID (test code = 2233) 7.5 MG/DL Delfino OrtaVITAMIN D, 25 [id number] 00:00:00* Test Item Value Reference Range Interpretation Comme nts VITAMIN D, 25 OH (test code = 4958) 36 NG/ML Delfino Schumacher AustinVITAMIN D, 25 [id number] 00:00:00* Test Item Value Reference Range Interpretation Comme nts VITAMIN D, 25 OH (test code = 4958) 36 NG/ML Delfino Schumacher AustinURIC [id number] 00:00:00* Test Item Value Reference Range Interpretation Comme nts URIC ACID (test code = 2233) 7.5 MG/DL Delfino OrtaVITAMIN D, 25 [id number] 00:00:00* Test Item Value Reference Range Interpretation Comme nts VITAMIN D, 25 OH (test code = 4958) 36 NG/ML Delfino Schumacher AustinURIC [id number] 00:00:00* Test Item Value Reference Range Interpretation Comme nts URIC ACID (test code = 2233) 7.5 MG/DL Delfino Schumacher AustinSEDIMENTATION [id number] 00:00:00* Test Item Value Reference Range Interpretation Comme nts SEDIMENTATION RATE (test cod e = 1017) 117 MM/HOUR Delfino Schumacher AustinRHEUMATOID FACTOR, [id number] 00:00:00* Test Item Value Reference Range Interpretation Comme nts RHEUMATOID FACTOR, QUANT (te st code = 3502) <10 IU/ML Delfino Schumacher AustinSEDIMENTATION [id number] 00:00:00* Test Item Value Reference Range Interpretation Comme nts SEDIMENTATION RATE (test cod e = 1017) 117 MM/HOUR Delfino Schumacher AustinC-REACTIVE [id number] 00:00:00* Test Item Value Reference Range Interpretation Comme nts C-REACTIVE PROTEIN (test cod e = 3513) 0.3 MG/DL Delfino F AustinRHEUMATOID FACTOR, [id number] 00:00:00* Test Item Value Reference Range Interpretation Comme nts RHEUMATOID FACTOR, QUANT (te st code = 3502) <10 IU/ML Delfino F AustinSEDIMENTATION [id number] 00:00:00* Test Item Value Reference Range Interpretation Comme nts SEDIMENTATION RATE (test cod e = 1017) 117 MM/HOUR Delfino F AustinC-REACTIVE [id number] 00:00:00* Test Item Value Reference Range Interpretation Comme nts C-REACTIVE PROTEIN (test cod e = 3513) 0.3 MG/DL Delfino F AustinRHEUMATOID FACTOR, [id number] 00:00:00* Test Item Value Reference Range Interpretation Comme nts RHEUMATOID FACTOR, QUANT (te st code = 3502) <10 IU/ML Delfino F AustinSEDIMENTATION [id number] 00:00:00* Test Item Value Reference Range Interpretation Comme nts SEDIMENTATION RATE (test cod e = 1017) 117 MM/HOUR Delfino F AustinC-REACTIVE [id number] 00:00:00* Test Item Value Reference Range Interpretation Comme nts C-REACTIVE PROTEIN (test cod e = 3513) 0.3 MG/DL Delfino F AustinRHEUMATOID FACTOR, [id number] 00:00:00* Test Item Value Reference Range Interpretation Comme nts RHEUMATOID FACTOR, QUANT (te st code = 3502) <10 IU/ML Delfino F AustinSEDIMENTATION [id number] 00:00:00* Test Item Value Reference Range Interpretation Comme nts SEDIMENTATION RATE (test cod e = 1017) 117 MM/HOUR Delfino F AustinC-REACTIVE [id number] 00:00:00* Test Item Value Reference Range Interpretation Comme nts C-REACTIVE PROTEIN (test cod e = 3513) 0.3 MG/DL Delfino F AustinRHEUMATOID FACTOR, [id number] 00:00:00* Test Item Value Reference Range Interpretation Comme nts RHEUMATOID FACTOR, QUANT (te st code = 3502) <10 IU/ML Delfino F AustinSEDIMENTATION [id number] 00:00:00* Test Item Value Reference Range Interpretation Comme nts SEDIMENTATION RATE (test cod e = 1017) 117 MM/HOUR Delfino F AustinC-REACTIVE [id number] 00:00:00* Test Item Value Reference Range Interpretation Comme nts C-REACTIVE PROTEIN (test cod e = 3513) 0.3 MG/DL Delfino F AustinRHEUMATOID FACTOR, [id number] 00:00:00* Test Item Value Reference Range Interpretation Comme nts RHEUMATOID FACTOR, QUANT (te st code = 3502) <10 IU/ML Delfino F AustinSEDIMENTATION [id number] 00:00:00* Test Item Value Reference Range Interpretation Comme nts SEDIMENTATION RATE (test cod e = 1017) 117 MM/HOUR Delfino F AustinC-REACTIVE [id number] 00:00:00* Test Item Value Reference Range Interpretation Comme nts C-REACTIVE PROTEIN (test cod e = 3513) 0.3 MG/DL Delfino F AustinRHEUMATOID FACTOR, [id number] 00:00:00* Test Item Value Reference Range Interpretation Comme nts RHEUMATOID FACTOR, QUANT (te st code = 3502) <10 IU/ML Delfino F AustinSEDIMENTATION [id number] 00:00:00* Test Item Value Reference Range Interpretation Comme nts SEDIMENTATION RATE (test cod e = 1017) 117 MM/HOUR Delfino F AustinC-REACTIVE [id number] 00:00:00* Test Item Value Reference Range Interpretation Comme nts C-REACTIVE PROTEIN (test cod e = 3513) 0.3 MG/DL Delfino F AustinRHEUMATOID FACTOR, [id number] 00:00:00* Test Item Value Reference Range Interpretation Comme nts RHEUMATOID FACTOR, QUANT (te st code = 3502) <10 IU/ML Delfino F AustinSEDIMENTATION [id number] 00:00:00* Test Item Value Reference Range Interpretation Comme nts SEDIMENTATION RATE (test cod e = 1017) 117 MM/HOUR Delfino F AustinC-REACTIVE [id number] 00:00:00* Test Item Value Reference Range Interpretation Comme nts C-REACTIVE PROTEIN (test cod e = 3513) 0.3 MG/DL Delfino F AustinRHEUMATOID FACTOR, [id number] 00:00:00* Test Item Value Reference Range Interpretation Comme nts RHEUMATOID FACTOR, QUANT (te st code = 3502) <10 IU/ML Delfino F AustinSEDIMENTATION [id number] 00:00:00* Test Item Value Reference Range Interpretation Comme nts SEDIMENTATION RATE (test cod e = 1017) 117 MM/HOUR Delfino F AustinC-REACTIVE [id number] 00:00:00* Test Item Value Reference Range Interpretation Comme nts C-REACTIVE PROTEIN (test cod e = 3513) 0.3 MG/DL Delfino F AustinRHEUMATOID FACTOR, [id number] 00:00:00* Test Item Value Reference Range Interpretation Comme nts RHEUMATOID FACTOR, QUANT (te st code = 3502) <10 IU/ML Delfino F AustinSEDIMENTATION [id number] 00:00:00* Test Item Value Reference Range Interpretation Comme nts SEDIMENTATION RATE (test cod e = 1017) 117 MM/HOUR Delfino F AustinC-REACTIVE [id number] 00:00:00* Test Item Value Reference Range Interpretation Comme nts C-REACTIVE PROTEIN (test cod e = 3513) 0.3 MG/DL Delfino F AustinRHEUMATOID FACTOR, [id number] 00:00:00* Test Item Value Reference Range Interpretation Comme nts RHEUMATOID FACTOR, QUANT (te st code = 3502) <10 IU/ML Delfino F AustinSEDIMENTATION [id number] 00:00:00* Test Item Value Reference Range Interpretation Comme nts SEDIMENTATION RATE (test cod e = 1017) 117 MM/HOUR Delfino F AustinC-REACTIVE [id number] 00:00:00* Test Item Value Reference Range Interpretation Comme nts C-REACTIVE PROTEIN (test cod e = 3513) 0.3 MG/DL Delfino F AustinRHEUMATOID FACTOR, [id number] 00:00:00* Test Item Value Reference Range Interpretation Comme nts RHEUMATOID FACTOR, QUANT (te st code = 3502) <10 IU/ML Delfino F AustinSEDIMENTATION [id number] 00:00:00* Test Item Value Reference Range Interpretation Comme nts SEDIMENTATION RATE (test cod e = 1017) 117 MM/HOUR Delfino F AustinC-REACTIVE [id number] 00:00:00* Test Item Value Reference Range Interpretation Comme nts C-REACTIVE PROTEIN (test cod e = 3513) 0.3 MG/DL Delfino F AustinRHEUMATOID FACTOR, [id number] 00:00:00* Test Item Value Reference Range Interpretation Comme nts RHEUMATOID FACTOR, QUANT (te st code = 3502) <10 IU/ML Delfino F AustinSEDIMENTATION [id number] 00:00:00* Test Item Value Reference Range Interpretation Comme nts SEDIMENTATION RATE (test cod e = 1017) 117 MM/HOUR Delfino F AustinC-REACTIVE [id number] 00:00:00* Test Item Value Reference Range Interpretation Comme nts C-REACTIVE PROTEIN (test cod e = 3513) 0.3 MG/DL Delfino F AustinRHEUMATOID FACTOR, [id number] 00:00:00* Test Item Value Reference Range Interpretation Comme nts RHEUMATOID FACTOR, QUANT (te st code = 3502) <10 IU/ML Delfino F AustinC-REACTIVE [id number] 00:00:00* Test Item Value Reference Range Interpretation Comme nts C-REACTIVE PROTEIN (test cod e = 3513) 0.3 MG/DL SEDIMENTATION [id number] 00:00:00* Test Item Value Reference Range Interpretation Comme nts SEDIMENTATION RATE (test cod e = 1017) 117 MM/HOUR Delfino F AustinC-REACTIVE [id number] 00:00:00* Test Item Value Reference Range Interpretation Comme nts C-REACTIVE PROTEIN (test cod e = 3513) 0.3 MG/DL Delfino F AustinRHEUMATOID FACTOR, [id number] 00:00:00* Test Item Value Reference Range Interpretation Comme nts RHEUMATOID FACTOR, QUANT (te st code = 3502) <10 IU/ML SEDIMENTATION [id number] 00:00:00* Test Item Value Reference Range Interpretation Comme nts SEDIMENTATION RATE (test cod e = 1017) 117 MM/HOUR C-REACTIVE [id number] 00:00:00* Test Item Value Reference Range Interpretation Comme nts C-REACTIVE PROTEIN (test cod e = 3513) 0.3 MG/DL RHEUMATOID FACTOR, [id number] 00:00:00* Test Item Value Reference Range Interpretation Comme nts RHEUMATOID FACTOR, QUANT (te st code = 3502) <10 IU/ML SEDIMENTATION [id number] 00:00:00* Test Item Value Reference Range Interpretation Comme nts SEDIMENTATION RATE (test cod e = 1017) 117 MM/HOUR C-REACTIVE [id number] 00:00:00* Test Item Value Reference Range Interpretation Comme nts C-REACTIVE PROTEIN (test cod e = 3513) 0.3 MG/DL RHEUMATOID FACTOR, [id number] 00:00:00* Test Item Value Reference Range Interpretation Comme nts RHEUMATOID FACTOR, QUANT (te st code = 3502) <10 IU/ML SEDIMENTATION [id number] 00:00:00* Test Item Value Reference Range Interpretation Comme nts SEDIMENTATION RATE (test cod e = 1017) 117 MM/HOUR C-REACTIVE [id number] 00:00:00* Test Item Value Reference Range Interpretation Comme nts C-REACTIVE PROTEIN (test cod e = 3513) 0.3 MG/DL RHEUMATOID FACTOR, [id number] 00:00:00* Test Item Value Reference Range Interpretation Comme nts RHEUMATOID FACTOR, QUANT (te st code = 3502) <10 IU/ML SEDIMENTATION [id number] 00:00:00* Test Item Value Reference Range Interpretation Comme nts SEDIMENTATION RATE (test cod e = 1017) 117 MM/HOUR RHEUMATOID FACTOR, [id number] 00:00:00* Test Item Value Reference Range Interpretation Comme nts RHEUMATOID FACTOR, QUANT (te st code = 3502) <10 IU/ML Delfino F AustinSEDIMENTATION [id number] 00:00:00* Test Item Value Reference Range Interpretation Comme nts SEDIMENTATION RATE (test cod e = 1017) 117 MM/HOUR Delfino F AustinC-REACTIVE [id number] 00:00:00* Test Item Value Reference Range Interpretation Comme nts C-REACTIVE PROTEIN (test cod e = 3513) 0.3 MG/DL Delfino F AustinRHEUMATOID FACTOR, [id number] 00:00:00* Test Item Value Reference Range Interpretation Comme nts RHEUMATOID FACTOR, QUANT (te st code = 3502) <10 IU/ML Delfino F AustinSEDIMENTATION [id number] 00:00:00* Test Item Value Reference Range Interpretation Comme nts SEDIMENTATION RATE (test cod e = 1017) 117 MM/HOUR Delfino F AustinC-REACTIVE [id number] 00:00:00* Test Item Value Reference Range Interpretation Comme nts C-REACTIVE PROTEIN (test cod e = 3513) 0.3 MG/DL Delfino F AustinC-REACTIVE [id number] 00:00:00* Test Item Value Reference Range Interpretation Comme nts C-REACTIVE PROTEIN (test cod e = 3513) 0.3 MG/DL Delfino F AustinRHEUMATOID FACTOR, [id number] 00:00:00* Test Item Value Reference Range Interpretation Comme nts RHEUMATOID FACTOR, QUANT (te st code = 3502) <10 IU/ML Delfino F AustinSEDIMENTATION [id number] 00:00:00* Test Item Value Reference Range Interpretation Comme nts SEDIMENTATION RATE (test cod e = 1017) 117 MM/HOUR Delfino F AustinRHEUMATOID FACTOR, [id number] 00:00:00* Test Item Value Reference Range Interpretation Comme nts RHEUMATOID FACTOR, QUANT (te st code = 3502) <10 IU/ML Delfino F AustinC-REACTIVE [id number] 00:00:00* Test Item Value Reference Range Interpretation Comme nts C-REACTIVE PROTEIN (test cod e = 3513) 0.3 MG/DL Delfino F AustinRHEUMATOID FACTOR, [id number] 00:00:00* Test Item Value Reference Range Interpretation Comme nts RHEUMATOID FACTOR, QUANT (te st code = 3502) <10 IU/ML Delfino F AustinSEDIMENTATION [id number] 00:00:00* Test Item Value Reference Range Interpretation Comme nts SEDIMENTATION RATE (test cod e = 1017) 117 MM/HOUR Delfino F AustinC-REACTIVE [id number] 00:00:00* Test Item Value Reference Range Interpretation Comme nts C-REACTIVE PROTEIN (test cod e = 3513) 0.3 MG/DL Delfino F You Consult Notes Date/Time Note Provider Source 2023-05-19 10:11:14 Associated Order(s): CONSULT CARDIOLOGY [facility] Cardiology Consult PCP: [facility] Date of Service: 05/19/2023 CHIEF COMPLAINT/reason for consult: Troponin elevation HISTORY OF PRESENT ILLNESS This is a 58 years old female with past medical history of HIV, hypertension, hyperlipidemia, possible CAD etc. She came to [facility] due to cough and dyspnea. She was found to have COPD exacerbation. Labs showed troponin elevation and TAIWO. Denies chest pain. No acute EKG changes. Echocardiogram showed hyperdynamic left ventricle with ejection fraction over 65%. Moderate aortic stenosis noted. PAST MEDICAL HISTORY Past Medical History: Diagnosis Date Coronary atherosclerosis of unspecified type of vessel, cahuilla or graft 02/11/2013 heart attack Genital warts [...] or Shortness of Breath. 8.5 g 0 zdjiqvecg-cvjdbxho-dnpebdc ala 50-200-25 mg tablet Take 1 tablet [...] injury) Aortic stenosis 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 COPD exacerbation-continue antibiotics, [...] statins. Continue metoprolol. 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 Possible CAD-she denies coronary intervention. Recommend to [...] further assistance. James Stacy MD, FACC, AUSTYN Dog Or Animal Sitter Division of Cardiovascular Medicine [facility] T [facility] - Health History and Physical Notes [...] or Shortness of Breath. 8.5 g 0 pkqlfnsxu-kidkhadp-wuuiuwb ala 50-200-25 mg tablet Take 1 tablet [...] Coronary atherosclerosis of unspecified type of vessel, cahuilla or graft 02/11/2013 heart attack Genital warts [...] mL, 5 mL, Intravenous, PRN, Anyi Hearn, ELECTRIC WHEELCHAIR REPAIRER [START ON 05/17/2023] sulfamethoxazole-trimethoprim (BACTRIM DS) 800-160 mg per tablet 1 tablet, 1 tablet, Oral, QMON/SAT/FRI AT 2000, Lefty Abreu MD Objective: Vitals: Vitals: 05/16/23 1612 05/16/23 1624 04/06/04 191405/16/232029 BP: 117/69 Pulse: 98 99 Resp: 16 [...] Disposition: Admit to inpatient IM-INTERNAL MEDICINE STAFF [facility] - Health Notes Date/Time Note Provider Source [facility] [address]2025-02-26 00:00:00 [facility] [address]2025-01-27 00:00:00 [facility] [address]2025-01-15 00:00:00 [facility] [address]2024-12-27 00:00:00 [facility] [address]2024-12-02 00:00:00 [facility] [address]2024-11-20 00:00:00 [facility] [address]2024-10-17 00:00:00 [facility] [address]2024-10-08 00:00:00 [facility] [address]2024-09-21 00:00:00 [facility] [address]2024-08-28 00:00:00 [facility] [address]2024-08-12 00:00:00 [facility] [address]2024-07-30 00:00:00 [facility] [address]2024-07-17 00:00:00 [facility] [address]2024-07-11 00:00:00 [facility] [address]2024-06-28 00:00:00 [facility] [address]2024-06-12 00:00:00 [facility] [address]2024-05-28 00:00:00 [facility] [address]2024-04-23 00:00:00 [facility] [address]2024-04-10 08:57:37 TRANSITIONAL CARE MANAGEMENT ASSESSMENT 05/22/2023 Charito Quiñonez [id number] Charito Quiñonez is a 58 year old Black or female was admitted on 05/16/23 to [facility]. She was discharged [...] mg twice daily No linked episodes TCM Jmm-sdrc-ej-face outreach documentation: CM made follow up call to patient post-discharge. Phone rings with no answer and no voicemail. Two attempts made to reach patient. Discharge Assessment Chart Assessed: 05/22/23 TCM Outreach Completed: 05/22/23 Future Appointments: [facility]aredes [facility]Qbhfpx4833-10-14 14:20:10 CM made follow up call to patient post-discharge. No answer and no voicemail. [id number] 15:49:35 Problem: Pain Goal: Control of pain [...] Outcome: Adequate for discharge Pedro Pablo Rios [id number] 13:54:10 Problem: Pain Goal: Control of pain [...] Outcome: Progressing as expected T Valeria Tyler [facility] CenterBkzvjb1457-96-05 23:51:17 Problem: Pain Goal: Control of pain [...] discharge Outcome: Progressing as expected Marisela Bañuelos [facility] CenterRdgdpc6923-66-76 12:43:53 Problem: Pain Goal: Control of pain [...] Adequate for discharge Outcome: Progressing as expected [place] [address]-04-06 13:44:06 Problem: Pain Goal: Control of pain [...] Adequate for discharge Outcome: Progressing as expected [place] [address]-04-06 06:26:57 Problem: Pain Goal: Control of pain [...] Adequate for discharge Outcome: Progressing as expected [place] [id number] 01:04:[address] Rsoario about pt having generalized wheezing and would benefit from IV steroids, waiting for response. Will continue to monitor. [facility] Argentina Chambers [facility] CenterDlqkge7351-74-96 17:16:46 Problem: Pain Goal: Control of pain at or below patient's documented comfort goal 05/17/2023 1716 by Molly Pond RN Outcome: Progressing as expected 05/17/2023 171 by VargasMolly Bajwa RN Outcome: Progressing as expected Goal: Reduction in pain sensation 05/17/2023 171 by Molly Pond RN Outcome: [...] Outcome: Progressing as expected 05/17/2023 171 by Molyl Pond RN Outcome: Progressing as expected [facility]onKbutgu5597-53-74 21:20:00 Problem: Pain Goal: Control of pain [...] discharge Outcome: Progressing as expected Hanny Moran [place] [id number] 16:51:01 Problem: Pain Goal: Control of pain [...] for discharge Outcome: Progressing as expected T [place] [address]-04-04 15:24:48 Report given to HALLE Barnescompliance paralegal T Audrey Hitchcock [place] [id number] 12:06:08 Patient states that she feels short of breath. [facility] Fortino Morales [place] [id number] 12:04:19 Patients states "I have a cold, I have a cough and it hurts in my back up to my head. And I am chaffed between my legs. I need some antibiotics." Patients respirations are labored with accessory muscle usage, oxygen saturation 82% on room air. [place] [id number] 12:34:58 PT D/C home. GCS15, VS stable, no ataxia noted. Given two prescriptions and D/C paperwork. S/S relieved at this time. Pt ambulatory at time of discharge. Pt educated on leg pain, med usage, follow up care, s/s worsening condition. Pt verbalized understanding. G[facility] SERVICES Susan Fief [facility] [id number] 10:40:01 Patient here for pain in the left leg, states after she walks she gets tired fast; rash on her back and needs a refill on her albuterol inhaler. GER SERVICES Fortino Morales [facility] [id number] 14:30:17 Pt given printed and verbal discharge [...] gait, in no apparent distress, Dayna Babcock [facility] [id number] 11:41:55 Pt arrived via transit bus with c/o back pain s/p fall 1 week ago. States she has not medicated forthe pain. Pt is also requesting refills of her nasal spray and inhaler. Rosalia Burton [facility]
[2024-04-19] MEDS ORDERED: NITROGLYCERIN 1 GM PKT TD ONE (01:56)
[2024-04-19] MEDS ORDERED: FUROSEMIDE 40 MG/4 ML VIAL ONE (01:56)
[2024-04-19 03:47] LABS: Absolute Lymphocytes (CBC) 0.5 K/uL (0.7-4.9); Absolute Monocytes 0.3 K/uL (0.1-1.3); Absolute Neutrophil 6.1 K/uL (1.8-8.0); Basophils % 0.4 % (0-1.3); Eosinophils % 0.1 % (0-4.4); Hematocrit 41.2 % (36.0-45.0); Hemoglobin 13.4 g/dL (12.0-15.0); Lymphocytes % 7.6 % (15.3-44.8); MCH 33.6 pg (27.0-35.0); MCHC 32.5 g/dL (32.0-36.0); MCV 103.4 fL (80-100); MPV 9.3 fL (7.6-11.3); Monocytes % 4.4 % (3.3-12.3); Neutrophils % 87.5 % (41.7-73.7); Nucleated Red Blood Cells % 0.2 % (0-0); Platelets 219 thou/uL (152-406); RBC Red Blood Cell Count 3.98 M/uL (3.86-4.86); Red Cell Distribution Width 14.1 % (12.1-15.2)
[2024-04-19 04:02] LABS: ALT/SGPT 57 U/L (13-56); AST/SGOT 48 U/L (15-37); Albumin 3.4 g/dL (3.4-5.0); Albumin/Globulin Ratio 0.7 (1.1-1.8); Alkaline Phosphatase 114 U/L (45-117); Anion Gap 10.9 mEq/L (5.0-15.0); BUN Blood Urea Nitrogen 40 mg/dL (7-18); Bicarbonate 24 mEq/L (21-32); Bilirubin Total 0.3 mg/dL (0.2-1.0); Globulin 4.9 g/dL (2.3-3.5); Glomerular Filtration Rate 44 ml/min (=/>90); Glucose Level 101 mg/dL (74-106); NT PRO-BNP 2937 pg/mL (<125); Potassium 3.9 mEq/L (3.5-5.1); Protein, Total 8.3 g/dL (6.4-8.2); Sodium Level 142 mEq/L (136-145)
[2024-04-19 04:07] LABS: Bilirubin Direct < 0.2 mg/dL (0-0.2); Bilirubin Indirect, Calculated 0.1 mg/dL (0.2-0.8)
[2024-04-19 04:09] LABS: Troponin High Sensitivity 251.8 pg/mL (<58.9)
[2024-04-19 04:37] LABS: Band Neutrophils 7 % (0-1); Differential Total Cells Count 100; Lymphocytes 5 % (15-42); Monocytes 1 % (0-10); Reactive Lymphocytes 1 %; Segmented Neutrophils 86 % (40-80)
[2024-04-19 04:38] LABS: Blood Morphology Comment NOT SEEN (NOT SEEN); Platelet Estimate ADEQ
--- NOTE | 2024-04-19 05:22 | RAD REPORT ---
EXAM DESCRIPTION: Chest Single View RadLex: XR CHEST 1 VIEW CLINICAL HISTORY: 59 years Female, DYSPNEA COMPARISON: 04/16/2024 FINDINGS: Single portable AP upright view of the chest. Trachea is midline. Stable appearance of the cardiac si lhouette. Stable prominent lung markings. No pleural effusion or pneumothorax. No acute osseous abnormality. IMPRESSION: No significant change. Electronically signed by: Rosalind Mcgrath MD 04/19/2024 04:41 AM CDT RP Due to temporary technical issues with the PACS/[employer] reporting system, reports are being renuka d by the in-house radiologist without review as a courtesy to ensure prompt reporting the interpreting radiologist is fully responsible for the content of the report. Transcribed Date/Time: 04/19/2024 5:21 AM
--- NOTE | 2024-04-19 06:06 | EDPHYS ---
Physician Documentation [facility] Name: Charito Michael Age: 59 yrs Sex: Female : 1965 Arrival Date: 04/19/2024 Time: 01:00 Bed 16 Private MD: ED Physician Yoni Duong HPI: 04/19 03:28 This 59 yrs old Black Female presents to ER via EMS with complaints of Shortness Of rt Breath. 03:28 Patient presents to the ED with shortness of breath starting tonight, patient had a rt recent admission to the hospital for CHF exacerbation, was discharged 2 days ago. Reports cough, orthopnea. Denies other acute complaints, symptoms are moderate in severity, no other aggravating or alleviating factors.. Historical: - Allergies: 01:15 NKA; rg5 - PMHx: :15 COPD; CHF; HIV; Hypertension; Back pain; seasonal allergies; Chronic pain; rg5 Hypercholesterolemia; - PSHx: 01:15 Total abdominal hysterectomy; rg5 - Immunization history:: Adult Immunizations not up to date. - Infectious Disease History:: Denies. - Social history:: Smoking status: Patient denies any tobacco usage or history of. - Family history:: not pertinent. ROS: 03:28 Constitutional: Negative for fever, chills, and weight loss, Cardiovascular: Negative rt for chest pain, palpitations, and edema, Abdomen/GI: Negative for abdominal pain, nausea, vomiting, diarrhea, and constipation, MS/Extremity: Negative for injury and deformity, Skin: Negative for injury, rash, and discoloration, Neuro: Negative for headache, weakness, numbness, tingling, and seizure, 03:28 Respiratory: Positive for cough, shortness of breath, Exam: 03:28 Constitutional: This is a well developed, well nourished patient who is awake, alert, rt and in no acute distress. Head/Face: Normocephalic, atraumatic. Chest/axilla: Normal chest wall appearance and motion. Nontender with no deformity. No lesions are appreciated. Cardiovascular: Regular rate and rhythm with a normal S1 and S2. No gallops, murmurs, or rubs. Normal PMI, no JVD. No pulse deficits. Respiratory: Lungs have equal breath sounds bilaterally, clear to auscultation and percussion. No rales, rhonchi or wheezes noted. No increased work of breathing, no retractions or nasal flaring. Abdomen/GI: Soft, non-tender, with normal bowel sounds. No distension or tympany. No guarding or rebound. No evidence of tenderness throughout. Skin: Warm, dry with normal turgor. Normal color with no rashes, no lesions, and no evidence of cellulitis. MS/ Extremity: Pulses equal, no cyanosis. Neurovascular intact. Full, normal range of motion. Neuro: Awake and alert, GCS 15, oriented to person, place, time, and situation. Cranial nerves II-XII grossly intact. Motor strength 5/5 in all extremities. Sensory grossly intact. Cerebellar exam normal. Normal gait. 03:28 ECG was reviewed by the Attending Physician. Vital Signs: 01:15 BP 139 / 91; Pulse 76; Resp 19; Temp 98; Pulse Ox 95% on 3 lpm NC; Weight 53.52 kg; rg5 Height 5 ft. 3 in. ; 03:00 BP 138 / 73; Pulse 78; Resp 18; Pulse Ox 99% on 3 lpm NC; rg5 04:40 BP 139 / 77; Pulse 78; Resp 19; Pulse Ox 95% on 3 lpm NC; rg5 06:05 BP 139 / 85; Pulse 83; Resp 18; Pulse Ox 96% on 3 lpm NC; rg5 01:15 Body Mass Index 20.90 (53.52 kg, 160.02 cm) [facility] MDM: 01:14 Medical Screening Exam initiated rt 04/19 01:21 Order name: Basic Metabolic Panel; Complete Time: 04:40 rt 04/19 01:21 Order name: CBC with Diff; Complete Time: 04:40 rt 04/19 01:21 Order name: LFT's; Complete Time: 04:40 rt 04/19 01:21 Order name: NT PRO-BNP; Complete Time: 04:40 rt 04/19 01:21 Order name: Troponin HS; Complete Time: 04:40 rt 04/19 03:52 Order name: Manual Differential; Complete Time: 04:40 EDMS 04/19 09:34 Order name: Urinalysis w/ reflexes EDMS 04/19 09:34 Order name: Basic Metabolic Panel EDMS 04/19 09:34 Order name: Basic Metabolic Panel EDMS 04/19 09:34 Order name: CBC with Automated Diff EDMS 04/19 09:34 Order name: CBC with Automated Diff EDMS 04/19 09:34 Order name: Magnesium EDMS 04/19 09:34 Order name: Magnesium EDMS 04/19 09:34 Order name: NT PRO-BNP EDMS 04/19 09:34 Order name: NT PRO-BNP EDMS 04/19 09:34 Order name: Troponin High Sensitivity EDMS 04/19 09:34 Order name: Troponin High Sensitivity EDMS 04/19 09:34 Order name: Troponin High Sensitivity EDMS 04/19 09:34 Order name: Troponin High Sensitivity EDMS 04/19 01:21 Order name: XRAY Chest (1 view) rt 04/19 06:04 Order name: CT Chest For PE Angio rt 04/19 01:21 Order name: Cardiac monitoring; Complete Time: 03:35 rt 03 01:21 Order name: EKG - Nurse/Tech; Complete Time: 03:35 rt 04/19 01:21 Order name: IV Saline Lock; Complete Time: 03:35 rt 04/19 01:21 Order name: Labs collected and sent; Complete Time: 03:35 rt 04/19 01:21 Order name: O2 Per Protocol; Complete Time: 03:35 rt 03 01:21 Order name: O2 Sat Monitoring; Complete Time: 03:35 rt EC:28 Rate is 73 beats/min. Rhythm is regular, Normal Sinus Rhythm with PACs. QRS [place] is rt Normal. ID interval is normal. QRS interval is normal. QT interval is normal. No Q waves. No ST changes noted. Interpreted by me. Administered Medications: 01:45 Drug: Nitroglycerin Transdermal Ointment 2 % 1 inches Transdermal once Route: rg5 Transdermal; Site: anterior chest wall; 03:51 Follow up: Response: No adverse reaction rg5 01:45 Drug: Furosemide IVP 40 mg IVP once; give over 2 minutes Route: IVP; Site: right rg5 forearm; 03:51 Follow up: Response: No adverse reaction rg5 09:13 Drug: Furosemide IVP 40 mg IVP once; give over 2 minutes Route: IVP; Site: right db forearm; 10:02 Follow up: Response: No adverse reaction db Disposition Summary: 04/19/24 06:06 Hospitalization Ordered Notes: Hospitalization Status: Observation rt Provider: Cyndee Hylton rt Condition: Stable rt Problem: an acute exacerbation rt Symptoms: have improved rt Bed/Room Type: Standard rt Location: Telemetry/MedSurg (observation)(04/19/24 08:59) bc6 Room Assignment: 411(04/19/24 09:43) bc6 Diagnosis - Dyspnea rt - Hypoxia rt - Elevated troponin rt Forms: - Medication Reconciliation Form rt - SBAR form rt - Leadership Thank You Letter rt Signatures: Dispatcher [employer] EDMS Rukhsana Bone, HALLE NERI hb Laura Barron RN RN db Yoni Duong MD MD rt Clarice Cuenca bc6 Stephen Young RN RN rg5 Corrections: (The following items were deleted from the chart) 01:21 01:21 Chest Single View+RAD.RAD.BRZ ordered. EDOH EDOH 07:52 06:06 Telemetry/MedSurg (observation) rt bc6 07:52 06:06 rt bc6 08:57 07:52 411 bc6 hb 08:59 07:52 Telemetry/MedSurg (Inpatient) bc6 bc6 08:59 08:57 ER - TREATMENT RM hb bc6 09:43 08:59 bc6 bc6
--- NOTE | 2024-04-19 06:06 | ER ---
Nurse's Notes [facility] Name: Charito Michael Age: 59 yrs Sex: Female : 1965 Arrival Date: 04/19/2024 Time: 01:00 Bed 16 Private MD: Diagnosis: Dyspnea;Hypoxia;Elevated troponin Presentation: 04/19 01:15 Chief complaint: EMS states: patients complaints of shortness of breath. rg5 01:15 Coronavirus screen: Client denies travel out of the [place] in the last 14 days. Ebola rg5 Screen: Patient negative for fever greater than or equal to 101.5 degrees Fahrenheit, and additional compatible Ebola Virus Disease symptoms. Initial Sepsis Screen: Does the patient meet any 2 criteria? No. Patient's initial sepsis screen is negative. Does the patient have a suspected source of infection? No. Patient's initial sepsis screen is negative. Risk Assessment: Do you want to hurt yourself or someone else? Patient reports no desire to harm self or others. Onset of symptoms was April 19, 2024. Care prior to arrival: Medication(s) given: Albuterol Neb x 1, Atrovent Neb x 1, Solu-Medrol 125mg IV IV initiated. 22 GA, in the right forearm, Med neb given. Oxygen administered. via nasal cannula. 01:15 Method Of Arrival: EMS: [facility] rg5 01:15 Acuity: GIULIANO 3 rg5 Triage Assessment: 01:15 General: Appears comfortable, Behavior is calm, cooperative, appropriate for age. Pain: rg5 Complains of pain in back. EENT: No deficits noted. Neuro: Level of Consciousness is awake, alert, obeys commands, Oriented to person, place, time, situation. Cardiovascular: Denies chest pain, Patient's skin is warm and dry. Respiratory: Reports shortness of breath cough that is Airway is patent Trachea midline Respiratory effort is even, unlabored, Respiratory pattern is regular, symmetrical, Onset: The symptoms/episode began/occurred just prior to arrival, the patient has moderate shortness of breath. GI: Abdomen is flat, non-distended. : No signs and/or symptoms were reported regarding the genitourinary system. Derm: Skin is intact, Skin is dry, Skin is normal, Skin temperature is warm. Musculoskeletal: Circulation, motion, and sensation intact. Range of motion: intact in all extremities. Historical: - Allergies: 01:15 NKA; rg5 - PMHx: :15 COPD; CHF; HIV; Hypertension; Back pain; seasonal allergies; Chronic pain; rg5 Hypercholesterolemia; - PSHx: 01:15 Total abdominal hysterectomy; rg5 - Immunization history:: Adult Immunizations not up to date. - Infectious Disease History:: Denies. - Social history:: Smoking status: Patient denies any tobacco usage or history of. - Family history:: not pertinent. Screenin:15 [facility] ED Fall Risk Assessment (Adult) History of falling in the last 3 months, rg5 including since admission Yes- single mechanical fall (1 pt) Confusion or Disorientation No (0 pts) Intoxicated or Sedated No (0 pts) Impaired Gait Yes (1 pt) Mobility Assist Device Used Yes (1 pt) Altered Elimination No (0 pt) Score/Fall Risk Level 3 or more points = High Risk Oriented to surroundings, Maintained a safe environment, Educated pt \T\ family on fall prevention, incl call for assistance when getting out of bed, Hourly rounding (assess needs \T\ fall precautionary measures) done, Used ambulatory aids as needed (educated on \T\ assisted with). Abuse screen: Denies threats or abuse. Nutritional screening: No deficits noted. Tuberculosis screening: No symptoms or risk factors identified. Assessment: 01:34 Reassessment: see triage assessment. rg5 01:51 Respiratory: rg5 03:30 Reassessment: Patient and/or family updated on plan of care and expected duration. Pain rg5 level reassessed. Patient is alert, oriented x 3, equal unlabored respirations, skin warm/dry/pink. 04:36 Reassessment: Patient and/or family updated on plan of care and expected duration. Pain rg5 level reassessed. Patient is alert, oriented x 3, equal unlabored respirations, skin warm/dry/pink. 04:37 Cardiovascular: Rhythm is sinus rhythm. rg5 05:30 Reassessment: No changes from previously documented assessment. Patient and/or family rg5 updated on plan of care and expected duration. Pain level reassessed. Patient is alert, oriented x 3, equal unlabored respirations, skin warm/dry/pink. 06:05 Reassessment: No changes from previously documented assessment. Patient and/or family rg5 updated on plan of care and expected duration. Pain level reassessed. Patient is alert, oriented x 3, equal unlabored respirations, skin warm/dry/pink. 07:49 Reassessment: Patient appears in no apparent distress at this time. Patient and/or db family updated on plan of care and expected duration. Pain level reassessed. Patient is alert, oriented x 3, equal unlabored respirations, skin warm/dry/pink. General: Appears in no apparent distress. comfortable, Behavior is calm, cooperative. Neuro: Level of Consciousness is awake, alert, obeys commands, Oriented to person, place, time, situation. Respiratory: Airway is patent Respiratory effort is even, unlabored, Respiratory pattern is regular, symmetrical. 08:39 Reassessment: Patient appears in no apparent distress at this time. Patient and/or db family updated on plan of care and expected duration. Pain level reassessed. Patient is alert, oriented x 3, equal unlabored respirations, skin warm/dry/pink. 09:30 Reassessment: PT AMBULATORY TO RESTROOM WITH MINIMAL ASSISTANCE. db Vital Signs: 01:15 BP 139 / 91; Pulse 76; Resp 19; Temp 98; Pulse Ox 95% on 3 lpm NC; Weight 53.52 kg; rg5 Height 5 ft. 3 in. ; 03:00 BP 138 / 73; Pulse 78; Resp 18; Pulse Ox 99% on 3 lpm NC; rg5 04:40 BP 139 / 77; Pulse 78; Resp 19; Pulse Ox 95% on 3 lpm NC; rg5 06:05 BP 139 / 85; Pulse 83; Resp 18; Pulse Ox 96% on 3 lpm NC; rg5 01:15 Body Mass Index 20.90 (53.52 kg, 160.02 cm) rg5 ED Course: 01:14 Patient arrived in ED. gm2 01:14 Yoni Duong MD is Attending Physician. rt 01:15 Arm band placed on left wrist. EKG completed in triage. Results shown to . rg5 01:15 Patient has correct armband on for positive identification. Bed in low position. Call rg5 light in reach. Side rails up X 1. Door closed. Noise minimized. Warm blanket given. Verbal reassurance given. 01:15 No provider procedures requiring assistance completed. Maintain EMS IV. Good blood rg5 return noted. Site clean \T\ dry. Gauge \T\ site: 22 gauge right forearm. Flushed with 10 mL NS IV is patent, is intact. 01:25 Stephen Young, HALLE is Primary Nurse. rg5 01:29 Triage completed. rg5 03:01 XRAY Chest (1 view) In Process Unspecified. EDMS 06:05 Cyndee Hylton MD is Hospitalizing Provider. rt 06:07 Provided Education on: needs for admit. rg5 06:07 Patient admitted, IV remains in place. intact, No redness/swelling at site. rg5 06:13 Radiology exam delayed due to IV insertion attempt and/or patient not having sm9 appropriate IV at this time. NEED DIFFUSIC 22G OR LARGER. 07:08 Inserted saline lock: 20 gauge in right antecubital area, using aseptic technique. rg5 Flushed with 10 mL NS. 07:[address] via stretcher. db 08:13 CT Chest For PE Angio In Process Unspecified. EDMS 08:39 Client placed on continuous cardiac and pulse oximetry monitoring. NIBP monitoring db applied. 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 Pulse ox on. NIBP on. 09:53 [facility] cp Administered Medications: 01:45 Drug: Nitroglycerin Transdermal Ointment 2 % 1 inches Transdermal once Route: rg5 Transdermal; Site: anterior chest wall; 03:51 Follow up: Response: No adverse reaction rg5 01:45 Drug: Furosemide IVP 40 mg IVP once; give over 2 minutes Route: IVP; Site: right rg5 forearm; 03:51 Follow up: Response: No adverse reaction rg5 09:13 Drug: Furosemide IVP 40 mg IVP once; give over 2 minutes Route: IVP; Site: right db forearm; 10:02 Follow up: Response: No adverse reaction db Medication: 04:38 VIS not applicable for this client. rg5 Outcome: 06:06 Decision to Hospitalize by Provider. rt 06:06 Admitted to ER Hold. Please see [facility] for further documentation. rg5 06:06 Condition: stable 06:06 Instructed on the need for admit, 10:03 Patient left the ED. bc6 Signatures: Dispatcher [employer] EDMN Chi Holder PA PA cp Laura Barron RN RN db Yoni Duong MD MD rt Clarice Cuenca bc6 Thi Wong gm2 Enedina Lee sm9 Stephen Young, RN RN rg5
--- NOTE | 2024-04-19 08:32 | RAD REPORT ---
EXAMINATION: CTA CHEST PE CLINICAL INDICATION: TECHNIQUE: 75 cc 370 Isovue administered intravenously. This examination was performed according to a n angiographic protocol with 3D post-processing. This involves 3D reconstructions, MIPs, volume rendered images and/or shaded surface rendering. One or more of the following dose reduction techniqu es were used: Automated exposure control, adjustment of the mA and/or kV according to patient size, and/or iterative reconstruction. Unless otherwise specified, incidental findings do not require dedic ated imaging follow-up. [id number]. COMPARISON: 2020 FINDINGS: A pulmonary embolus is not seen. An aortic aneurysm not noted. Cardiomegaly with significant left ventricular hypertrophy.. Prominence main pulmonary artery. No pleural effusion. No pericardial effusion. Mild bilateral interstitial lung opacities. IMPRESSION: No evidence of a pulmonary embolism Dilated main pulmonary artery may indicate pulmonary arterial hypertension Mild bilateral interstitial lung opacities
[2024-04-19] MEDS: FUROSEMIDE 40 MG/4 ML VIAL IV ONE (08:41)
[2024-04-19] MEDS ORDERED: ONDANSETRON 4 MG/2 ML VIAL IV PRN (09:30)
[2024-04-19] MEDS ORDERED: ALPRAZOLAM 0.25 MG TABLET PO PRN (09:30)
[2024-04-19] MEDS: ALBUTEROL 2.5 MG/3 ML NEB SOL NEB SCH (09:30)
[2024-04-19] MEDS ORDERED: ACETAMINOPHEN 500 MG TAB PO PRN (09:30)
[2024-04-19] MEDS: IPRATROPIUM BROM 0.5MG/2.5ML NEB SCH (09:45)
--- NOTE | 2024-04-19 09:55 | P.HP ---
Certification for Inpatient Patient admitted to: Observation <Ines Bernstein - Last Filed: 04/19/24 17:07> Patient History Date of Service: 04/19/24 Reason for admission: shortness of breath History of Present Illness: 59-year-old female with a past medical history of Back pain, CHF, Chronic pain, COPD on 4 LNC, HIV, PCP pneumonia, Hypercholesterolemia, Hypertension, CAD with stent, seasonal allergie, CHF, chronic pain, COPD on 4 L nasal cannula, hypertension presenting with shortness of breath for the past day. She denies any fevers, chills, chest pain. She reports not picking up her prescriptions after disharge, has noted elevated troponin, no reported chest pain. plan to admit to obs for acute hypoxic respiratory failure secondary to pneumonia, NSTEMI. 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 -: safety pin removal from right lung Psychosocial/ Personal History: Pt lives at home alone - Family History Father -: Heart disease Notes: of [place] Sister -: Heart disease Notes: of [place] - Social History Alcohol use: No CD- Drugs: No Caffeine use: Yes <Ines Bernstein - Last Filed: 04/19/24 17:07> Date of Service: 04/21/24 <Cyndee Hylton - Last Filed: 04/21/24 05:31> Allergies No Known Drug Allergies Allergy (Verified 03/20/24 23:01) Unknown Home Medications: Nystatin 5 ml PO QID PRN 01/11/18 Zolpidem Tartrate 10 mg PO BEDTIME PRN 01/11/18 ALPRAZolam [Xanax*] 1 mg PO TID #90 tab 02/22/24 Albuterol Neb [Proventil 0.083% Neb Soln] 1.25 mg NEB DAILY 30 Days #30 amp 03/21/24 Amitriptyline HCl 100 mg PO BEDTIME 30 Days #30 tab 03/21/24 Atorvastatin Calcium [Lipitor] 40 mg PO BEDTIME 30 Days #30 tab 03/21/24 Gabapentin 100 mg PO TID #90 03/21/24 Ipratropium Neb [Atrovent*] 0.5 mg NEB DAILY 30 Days #30 amp 03/21/24 Nebulizer Accessories [Adult Aerosol Mask] 1 each MC DAILY 30 Days #1 ea 03/21/24 Nebulizer and Compressor [[place] Choice Nebulizer] 1 each MC DAILY 30 Days #1 ea 03/21/24 Amlodipine [Norvasc*] 10 mg PO DAILY #30 tab 04/17/24 Aspirin Chewable [Aspirin Chewable*] 1 tab PO DAILY 04/17/24 Baclofen 5 mg PO BID 04/17/24 Bictegrav/Emtricit/Tenofov Ala [Biktarvy 50-200-25 mg Tablet] 1 tab PO DAILY 04/17/24 Doxepin HCl [Sinequan*] 10 mg PO BEDTIME 04/17/24 Duloxetine HCl 60 mg PO 04/17/24 Fluticasone/Umeclidin/Vilanter [Trelegy Ellipta 200-62.5-25] 1 puff PO DAILY 04/17/24 Hydrocodone 7.5/APAP 325 [[place] 7.5/325 mg] 1 tab PO Q12H PRN #30 tab 04/17/24 Losartan/Hydrochlorothiazide [Losartan-Hctz 100-12.5 mg Tab] 1 tab PO DAILY 04/17/24 Melatonin 10 mg PO BEDTIME PRN PRN #30 cap 04/17/24 Metoprolol Tartrate [Lopressor*] 25 mg PO BID #60 tab 04/17/24 Zolpidem Tartrate [Ambien] 5 mg PO BEDTIME PRN PRN #20 tab 04/17/24 Review of Systems 10-point ROS is otherwise unremarkable <Ines Bernstein - Last Filed: 04/19/24 17:07> Physical Examination - Physical Exam General: Alert, In no apparent distress, Oriented x3 HEENT: Atraumatic, Normocephalic, PERRLA Neck: Supple, 2+ carotid pulse no bruit, JVD not distended Respiratory: Normal air movement, Other (respiration equal, unlabored ) Cardiovascular: Normal pulses, Regular rate/rhythm, Normal S1 S2 Capillary refill: <2 Seconds Gastrointestinal: Normal bowel sounds, Soft and benign Musculoskeletal: No swelling, No contractures Integumentary: No significant lesion, No tenderness/swelling Neurological: Normal speech, Normal strength at 5/5 x4 extr, Cranial nerves 3-12 intact - Studies Laboratory Data (last 24 hrs) 04/19/24 04/19/24 03:29 03:29 WBC 7.00 Hgb 13.4 Hct 41.2 Plt Count 219 Sodium 142 Potassium 3.9 BUN 40 H Creatinine 1.37 H Glucose 101 Total Bilirubin 0.3 AST 48 H ALT 57 H Alkaline Phosphatase 114 <Ines Bernstein - Last Filed: 04/19/24 17:07> - Studies Laboratory Data (last 24 hrs) 04/20/24 04/20/24 04/20/24 17:15 05:38 05:38 WBC 11.50 H Hgb 13.3 Hct 40.8 Plt Count 237 Sodium 140 137 D Potassium 4.4 4.0 BUN 75 H 76 H Creatinine 3.30 H 3.66 H Glucose 142 H 147 H Magnesium 2.2 <Cyndee Hylton - Last Filed: 04/21/24 05:31> Assessment and Plan - Problems (Diagnosis) (1) Acute hypoxic respiratory failure Current Visit: Yes Status: Acute (2) Pneumonia Current Visit: Yes Status: Acute (3) HIV (human immunodeficiency virus infection) Current Visit: Yes Status: Acute (4) NSTEMI (non-ST elevated myocardial infarction) Current Visit: No Status: Acute - Plan Assessment Acute hypoxic respiratory failure, seconday to HIV pneumomina HIV, PCP pneumonia, COPD on 2-4 LNC home 02 02 2L keep sats >92% PO bactrim, steroids, dounebs, NSTEMI CAD with stent, hx HF, Trend troponin Resume home meds Chronic pain, seasonal allergies HIV HTN resume home meds full code DVT lovenox Diet cardiac Disposition, home independant prior. Discharge Plan: Home - Advance Directives Does patient have a Living Will: No Does patient have a Durable POA for Healthcare: No - Code Status/Comfort Care Code Status: Full Code Critical Care: No Time Spent Managing Pts Care (In Minutes): 55 <Ines Bernstein - Last Filed: 04/19/24 17:07> Date of Service: 04/19/24 Chart has been reviewed. Events of the last 24 hours have been noted. Case discussed with DAVE. I performed a substantial part of the MDM during this patient's care today. I personally made or approved the documented management plan and acknowledge its risk of complications. I agree with the findings and documentation provided in the DAVE's notes <Cyndee Hylton - Last Filed: 04/21/24 05:31>
[2024-04-19 10:09] VITALS: BMI 20.9
[2024-04-19] MEDS: METHYLPREDNISOLONE 125 MG INJ IV ONE (11:07)
[2024-04-19] MEDS: SMZ./TMP. 800/160 MG TABLET PO SCH (11:07)
[2024-04-19 12:11] LABS: Specific Gravity 1.021 (1.005-1.030); Sqamous Epithelial None Seen /HPF (None Seen); Urine Bacteria None Seen /HPF (<20); Urine Bilirubin NEGATIVE (Negative); Urine Blood Trace (Negative); Urine Clarity Clear (Clear); Urine Color Colorless (Yellow); Urine Culture Reflex Order NOT NEEDED; Urine Glucose NEGATIVE (Negative); Urine Ketones NEGATIVE (Negative); Urine Microscopic Reflex YN ORDER UMIC; Urine Mucus Slight /HPF (None Seen); Urine Nitrite NEGATIVE (Negative); Urine Protein NEGATIVE (Negative); Urine RBC <5 /HPF (None Seen); Urine Urobilinogen Normal (Normal); Urine WBC <5 /HPF (<5)
[2024-04-19] MEDS: GABAPENTIN 100 MG CAP PO SCH (13:11)
[2024-04-19] MEDS: ALPRAZOLAM 1 MG TABLET PO SCH (13:12)
[2024-04-19] MEDS: METOPROLOL TAR 25 MG TAB PO SCH (20:31)
[2024-04-20 06:53] LABS: Absolute Lymphocytes (CBC) 0.7 K/uL (0.7-4.9); Absolute Neutrophil 9.8 K/uL (1.8-8.0); Basophils % 0.1 % (0-1.3); Hematocrit 40.8 % (36.0-45.0); Hemoglobin 13.3 g/dL (12.0-15.0); MCH 33.8 pg (27.0-35.0); MCHC 32.6 g/dL (32.0-36.0); MCV 103.6 fL (80-100); MPV 9.3 fL (7.6-11.3); Monocytes % 8.7 % (3.3-12.3); Neutrophils % 85.2 % (41.7-73.7); Nucleated Red Blood Cells % 0.1 % (0-0); Platelets 237 thou/uL (152-406); RBC Red Blood Cell Count 3.94 M/uL (3.86-4.86); Red Cell Distribution Width 14.1 % (12.1-15.2)
[2024-04-20 07:18] LABS: Magnesium 2.2 mg/dL (1.6-2.4)
[2024-04-20 08:10] LABS: Troponin High Sensitivity 286.6 pg/mL (<58.9)
[2024-04-20] MEDS: ENOXAPARIN 40 MG/0.4 ML SQ SCH (08:40)
[2024-04-20] MEDS: ASPIRIN 81 MG CHEWABLE TABLET PO SCH (08:41)
[2024-04-20] MEDS: HOME MED 1 EA UNK (Fluticasone/Umeclidin/Vilanter [Trelegy Ellipta 200-62.5-25] Blst.W.Dev PO SCH (08:41)
[2024-04-20] MEDS: NA CHLORIDE 0.9% 500 ML IV ONE (09:27)
[2024-04-20] MEDS: NA CHLORIDE 0.9% 1,000 ML IV SCH (09:27)
[2024-04-20 17:39] LABS: Anion Gap 8.4 mEq/L (5.0-15.0); Potassium 4.4 mEq/L (3.5-5.1)
--- NOTE | 2024-04-21 05:28 | P.PN ---
Date of Service: 04/20/24 Subjective Patient continues to feel better; however, her renal function worsened. She was tearful as she wanted to go home today. She does not like the food that we are bringing her. Renal function increased secondary to Lasix, steroids, Bactrim. Will gently hydrate and repeat renal function later today and in AM. If it continues to improve then she should be stable for discharge. If it worsens we will get nephrology consultation. Physical Examination - Physical Exam Vitals: Reviewed General: Alert, In no apparent distress, Oriented x3 Respiratory: Normal air movement, Other (respiration equal, unlabored ) Cardiovascular: Normal pulses, Regular rate/rhythm, Normal S1 S2 Gastrointestinal: Normal bowel sounds, Soft and benign Musculoskeletal: No swelling, No contractures Integumentary: No significant lesion, No tenderness/swelling Neurological: No focal deficits Assessment and Plan - Problems (Diagnosis) (1) Acute kidney injury Current Visit: Yes Status: Acute (2) Pneumonia Current Visit: Yes Status: Acute (3) HIV (human immunodeficiency virus infection) Current Visit: Yes Status: Acute (4) NSTEMI (non-ST elevated myocardial infarction) Current Visit: No Status: Acute - Plans 1. Acute kidney injury; most likely medication related. Will gently hydrate and repeat renal function. Most likely related to multiple medications that are on board. Patient was given Bactrim, steroids, and a large dose of Lasix. 2. Pneumonia; continue with IV antibiotic with Rocephin and Zithromax; Possible opportunistic infection. Check CD4 count and viral load 3. Non-STEMI; patient with a history of elevated troponins; however recent cardiac catheterization with completely normal coronaries. No further workup necessary at this time 4. History of HIV; patient will need to follow-up at the HIV clinic. May need to check CD4 count and viral load if patient stays in the hospital longer than anticipated.
[2024-04-21 06:23] LABS: Anion Gap 10.1 mEq/L (5.0-15.0); Potassium 4.1 mEq/L (3.5-5.1)
[2024-04-21] MEDS: ENOXAPARIN 30 MG/0.3 ML SQ SCH (09:16)
--- NOTE | 2024-04-21 11:07 | EKG ---
Test Date: 2024-04-19 Test Time: 03:09:09 Accounting Specialist: BETHANIE MEASUREMENT RESULTS: Intervals: Rate: 73 KS: 134 QRSD: 80 QT: 408 QTc: 449 [place]: P: 74 KS: 134 QRS: 76 T: 79 INTERPRETIVE STATEMENTS: Sinus rhythm with premature atrial complexes Biatrial enlargement Nonspecific T wave abnormality Abnormal ECG Compared to ECG 04/16/2024 23:47:16 Atrial premature complex(es) now present T-wave abnormality now present Myocardial infarct finding no longer present Electronically Signed On 04-21-24 11:00:41 CDT by Aidan Armstrong
[2024-04-21] MEDS: NA CHLORIDE 0.9% 1,000 ML IV SCH (14:44)
--- NOTE | 2024-04-21 15:13 | P.PN ---
Date of Service: 04/21/24 Subjective Awake, eating her breakfast kidney function improved but not at basline, Dr. Blake recommends IVF for now ROS 10 point ROS as noted above, otherwise negative Physical Exam General: Alert and Oriented x3, NAD Respiratory: Normal air movement, on 3LNC Cardiovascular: Normal pulses, Mild tachycardia, Normal S1 S2 Gastrointestinal: Normal bowel sounds, Soft on palpation Musculoskeletal: No swelling, No contractures Integumentary: No significant lesion, No tenderness/swelling Neurological: No focal deficits Vitals Reviewed Problem list Acute kidney injury Pneumonia HIV NSTEMI Assessment and Plan Acute kidney injury -Likely 2/2 losartan and hydrochlorothiazide, will hold -gentle IVF -Dr. Blake consulted, recommends continued IVF -Creatinine improved, likely one more day -Repeat labs in the AM Pneumonia -Continue rocephin and zithromax -possible opportunistic infection HIV -continue home medications NSTEMI -Troponin trended flat Hyperglycemia -continue to monitor -improved since admission -A1C in the AM DVT ppx Lovenox Code status LOS 24 hours <Maryanne Mendez - Last Filed: 04/21/24 14:26> I have personally seen and evaluated the patient. I have reviewed the history, physical exam findings, and assessment provided by Esmer Mendez NP. I agree with the plan of care as documented <Carissa Howard - Last Filed: 04/21/24 17:44>
[2024-04-21] MEDS: AZITHROMYCIN 250 MG TAB PO SCH (16:51)
--- NOTE | 2024-04-21 18:19 | CON ---
Reason For Consultation: Elevated BUN and creatinine. History Of Present Illness: This is a 59-year-old female with significant past medical history of COPD, congestive heart failure, HIV, CAD, hypertension, dementia the patient came to the hospital with shortness of breath for the last few days. The patient not compliant with fluid restriction or low-salt diet. Past Medical History: 1. COPD exacerbation Monitor closely on telemetry Started on bronchodilators Oxygen supplementation Steroids added ABG findings noted Chest x-ray findings noted Pulmonology consult if not better in the a.m. 2. Pneumonia PCP. 3. Chronic kidney disease with recurrent acute kidney injury secondary to cardiorenal, last time creatinine 1.3 back in March with GFR of 46. 4. CAD, status post PCI. 5. Dementia. 6. COPD. Past Surgical History: Include partial stomach removal. Family History: Positive for CAD. Social History: Denied smoking, denied drinking, denied drugs abuse. Current Medications: The patient on include: 1. Albuterol inhaler. 2. Metoprolol. 3. Melatonin. 4. Losartan with hydrochlorothiazide. 5. Hydrocodone. 6. Tylenol 7. Amlodipine. 8. Amitriptyline. 9. Alprazolam. Current medications in the hospital include gabapentin, alprazolam, Lovenox, aspirin. Review of Systems: Head and Neck: No red eye. No ear pain. GI: No nausea, no vomiting. : No polyuria, no dysuria, no hematuria. Stockroom Worker: No vaginal discharge. Respiratory: Has shortness of breath. Cardiovascular: Has orthopnea. Endocrine: No polydipsia. Skin: No rash. Physical Examination: General: When I saw the patient the patient sitting in bed slightly shortness of breath. Vital Signs: Blood pressure of 157/74, pulse of 104. Chest: Crackles bilateral. Heart: S1, S2, systolic murmur. Abdomen: Soft, nontender. Extremities: Trace edema. Neurologic: Alert, pleasantly confused. Laboratory Data: Lab data for the patient; sodium 142, potassium 4.2, BUN 56, creatinine 2.1, GFR 26, calcium 8.1. WBC 11.5, hemoglobin 13.3. Assessment/plan: 1. Acute kidney injury secondary to poor perfusion and ATN superimposed with ARB and hydrochlorothiazide. I am going to go ahead and start the patient on IV hydration and we will follow up. Discontinue losartan, discontinue hydrochlorothiazide. The patient's obstructive uropathy has been ruled out. 2. Hypertension with presence of acute kidney injury. Discontinue losartan, hydrochlorothiazide. 3. Hypernatremia secondary to depletional continue hydration. 4. Chronic obstructive pulmonary disease with exacerbation as by primary. 5. Transient altered mental status by primary. time spent examining the patient [id number] reviewing data lab and the radiology placing order discussing the case with the patient discussing the case with the [place] including hospitalist and nursing staff more than 75-minute ALLEN Voice ID: [id number] Report ID: [id number] JENNIFER
[2024-04-21] MEDS ORDERED: HOME MED 1 EA UNK (Amitriptyline Hcl [Amitriptyline Hcl] 100 MG Tablet) PO SCH (21:00)
[2024-04-21] MEDS ORDERED: HOME MED 1 EA UNK (Baclofen [Baclofen] 5 MG Tablet) PO SCH (21:00)
[2024-04-21] MEDS: BACLOFEN 10 MG TAB PO SCH (21:17)
[2024-04-21] MEDS: ATORVASTATIN 40 MG TAB PO SCH (21:17)
[2024-04-21] MEDS: AMITRIPTYLINE 50 MG TAB PO SCH (21:17)
[2024-04-21] MEDS: CEFTRIAXONE 1,000 MG in NA CHLORIDE 0.9% 50 ML IVPB SCH (21:18)
[2024-04-21] MEDS: DOXEPIN HCL 10 MG CAP PO SCH (21:18)
[2024-04-22 07:57] LABS: Albumin 2.9 g/dL (3.4-5.0); Anion Gap 6.2 mEq/L (5.0-15.0); Phosphorus 2.2 mg/dL (2.5-4.9); Potassium 4.2 mEq/L (3.5-5.1); Uric Acid 6.3 mg/dL (2.6-6.0)
[2024-04-22] MEDS: DULOXETINE 30 MG CAP PO SCH (08:44)
[2024-04-22] MEDS ORDERED: HOME MED 1 EA UNK (Duloxetine Hcl [Duloxetine Hcl] 60 MG Capsule.Dr) PO SCH (09:00)
[2024-04-22] MEDS: POTASS/SODIUM PHOSPHATE 1 PKT POWD.PACK PO ONE (09:05)
--- NOTE | 2024-04-22 10:51 | P.PN ---
Date of Service: 04/22/24 Subjective Lethargic this morning Fell trying to ambulate to the bathroom, reports no injury Head CT and repeat chest x-ray Nurse looking for home medication Biktarvy and found a ag[employer]ilar [employer] bag with a white powder. Powder was sent for testing and showed narcotics. Security confiscated the bag and handed over to the police department. APS reported. Spoke with family that reported she crushes all of her medications and mix them together in a baggie at home, taking a spoonful, but the family is unsure how many spoonfuls she takes and frequently will find her on the floor. Charito fell trying to ambulate to the bathroom and has been very lethargic. She had white paste on her lips which gives suspicion that she ingested the white powder from her purse. Urine drug screen showing benzodiazepine, because of lethargy Romazicon was given. Education provided to the family for better monitoring of home medication. ROS 10 point ROS as noted above, otherwise negative Physical Exam General: AAO x3, NAD Respiratory: Normal air movement, on 2LNC Cardiovascular: Normal pulses, Mild tachycardia, Normal S1 S2 Gastrointestinal: Soft on palpation, NT/ND Musculoskeletal: No swelling, No contractures Integumentary: No significant lesion, No tenderness/swelling Neurological: lethargic Vitals Reviewed Problem list Acute kidney injury Pneumonia HIV NSTEMI Hyperglycemia Assessment and Plan Acute kidney injury -Likely 2/2 losartan and hydrochlorothiazide, will hold -gentle IVF -Dr. Blake consulted -IVF stopped d/t gurgling lung sounds last night -Creatinine resolved -Repeat labs in the AM Pneumonia -Continue rocephin and zithromax -possible opportunistic infection HIV -continue home medications, family will bring Biktarvy as she is taking all that she brought with her -viral load nondetected- April 21 NSTEMI -Troponin trended flat -Cardiology consulted, with recommendations for continuous telemetry, likely noncardic Hyperglycemia-resolved -continue to monitor -improved since admission -A1C 6.0 DVT ppx Lovenox Code status LOS 24 hours <Maryanne Mendez - Last Filed: 04/22/24 20:05> I have personally seen and evaluated the patient. I have reviewed and agree with the history, physical exam findings, assessment, and plan of Esmer Mendez. TRIAL ATTORNEY. <Carissa Howard - Last Filed: 04/22/24 20:27>
--- NOTE | 2024-04-22 10:52 | RAD REPORT ---
EXAM: CT brain without contrast HISTORY: fall COMPARISON: 07/15/2023 TECHNIQUE: Multiple contiguous axial images were obtained and a CT of the brain without contrast. Sag ittal and coronal reformats were performed. One or more of the following dose reduction techniques were used: Automated exposure control, adjust ment of the mA and/or kV according to patient size, and/or iterative reconstruction. FINDINGS: No evidence of hydrocephalus, intracranial hemorrhage, or extra-axial fluid collection. Moderate brain atrophy with moderate periventricular and deep white matter chronic microvascular isc hemic changes present. No evidence of midline shift or areas of brain edema. The calvarium is intact. The visualized paranasal sinuses and mastoid air cells are essentially clear . IMPRESSION: No evidence of acute intracranial abnormality.
--- NOTE | 2024-04-22 11:44 | PN ---
Date of Progress Note: 04/22/2024 Subjective: The patient was admitted to the hospital with acute kidney injury secondary to prerenal after hydration. Acute kidney injury has been improved. Physical Examination: Vital Signs: Blood pressure 149/90, pulse of 105, afebrile. Chest: Clear to auscultation. Heart: S1, S2. Regular. Abdomen: Soft, nontender. Extremities: No edema. Neurologic: Alert. No focality. Laboratory Data: WBC 11.5, hemoglobin 13.3. Sodium 145, potassium 4.2, bicarb 28, BUN 32, creatinine 1.2, GFR of 50, calcium of 9.4, phosphorus 2.2. PTH 257. Current Medications: The patient is on include ceftriaxone, Lovenox, amitriptyline, docusate, and breathing treatment. Assessment And Plan: 1. Acute kidney injury secondary to prerenal, recovered, resolved. I am going to discontinue IV fluid. 2. Hypertension, controlled, optimal. Continue current medication. 3. Hypernatremia, depletional, recovered, resolved. Discontinue IV fluid. 4. COPD. Continue symptomatic treatment. 5. HIV, as by primary. time spent examining the patient [id number] reviewing data lab and the radiology placing order discussing the case with the patient discussing the case with the food court team member including hospitalist and nursing staff more than 55-minute ALLEN Voice ID: [id number] Report ID: [id number] JENNIFER
--- NOTE | 2024-04-22 12:16 | RAD REPORT ---
EXAMINATION: ONE VIEW CHEST XR CLINICAL INDICATION: sob TECHNIQUE: Frontal chest projection is submitted. Examination is limited by patient positioning and t echnique. COMPARISON: 04/19/2024 FINDINGS: [id number] bilateral pulmonary opacities likely represent pulmonary edema or pneumonia and appe ar unchanged. The heart is upper limit of normal in size. No displaced fractures identified. IMPRESSION: Stable chest since 04/19/2024 study.
--- NOTE | 2024-04-22 13:32 | P.CNS ---
Date of Consult: 04/22/24 Chief Complaint: shortness of breath History of Present Illness: Patient with PMH of HTN, Heart failure, presented to the hospital earlier with weakness, SOB, cardiology were consulted due to a fall today while she was ambulating, patient is very sleepy upon interview and hard to open her eyes, and her mouth was frothy. Allergies No Known Drug Allergies Allergy (Verified 03/20/24 23:01) Unknown Home medications list reviewed: Yes Home Medications: Nystatin 5 ml PO QID PRN 01/11/18 Zolpidem Tartrate 10 mg PO BEDTIME PRN 01/11/18 ALPRAZolam [Xanax*] 1 mg PO TID #90 tab 02/22/24 Albuterol Neb [Proventil 0.083% Neb Soln] 1.25 mg NEB DAILY 30 Days #30 amp 03/21/24 Amitriptyline HCl 100 mg PO BEDTIME 30 Days #30 tab 03/21/24 Atorvastatin Calcium [Lipitor] 40 mg PO BEDTIME 30 Days #30 tab 03/21/24 Gabapentin 100 mg PO TID #90 03/21/24 Ipratropium Neb [Atrovent*] 0.5 mg NEB DAILY 30 Days #30 amp 03/21/24 Nebulizer Accessories [Adult Aerosol Mask] 1 each MC DAILY 30 Days #1 ea 03/21/24 Nebulizer and Compressor [[place] Choice Nebulizer] 1 each MC DAILY 30 Days #1 ea 03/21/24 Amlodipine [Norvasc*] 10 mg PO DAILY #30 tab 04/17/24 Aspirin Chewable [Aspirin Chewable*] 1 tab PO DAILY 04/17/24 Baclofen 5 mg PO BID 04/17/24 Bictegrav/Emtricit/Tenofov Ala [Biktarvy 50-200-25 mg Tablet] 1 tab PO DAILY 04/17/24 Doxepin HCl [Sinequan*] 10 mg PO BEDTIME 04/17/24 Duloxetine HCl 60 mg PO 04/17/24 Fluticasone/Umeclidin/Vilanter [Trelegy Ellipta 200-62.5-25] 1 puff PO DAILY 04/17/24 Hydrocodone 7.5/APAP 325 [[place] 7.5/325 mg*] 1 tab PO Q12H PRN #30 tab 04/17/24 Melatonin 10 mg PO BEDTIME PRN PRN #30 cap 04/17/24 Metoprolol Tartrate [Lopressor*] 25 mg PO BID #60 tab 04/17/24 Zolpidem Tartrate [Ambien] 5 mg PO BEDTIME PRN PRN #20 tab 04/17/24 Cefuroxime [Ceftin] 500 mg PO BID 5 Days #10 tab 04/22/24 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 -: safety pin removal from right lung Psychosocial/ Personal History: Pt lives at home alone - Family History Father Medical History: Heart disease Notes: of [place] Sister Medical History: Heart disease Notes: of [place] - Social History Smoking Status: Unknown if ever smoked Alcohol use: No CD- Drugs: No Caffeine use: Yes Place of Residence: Home Review of Systems is unable to be obtained (patient is altered) Physical Examination Temp Pulse Resp BP Pulse Ox 97.7 F 98 H 14 160/91 H 90 L 04/22/24 13:03 04/22/24 12:00 04/22/24 12:00 04/22/24 12:00 04/22/24 12:00 General: In no apparent distress HEENT: Atraumatic, PERRLA, Mucous membr. moist/pink, EOMI, Sclerae nonicteric Neck: Supple, 2+ carotid pulse no bruit, No LAD, Without JVD or thyroid abnormality Respiratory: Clear to auscultation bilaterally, Normal air movement Cardiovascular: Regular rate/rhythm, Normal S1 S2 Gastrointestinal: Normal bowel sounds, No tenderness Musculoskeletal: No tenderness Integumentary: No rashes Neurological: Normal gait, Normal speech, Normal tone, Normal affect Lymphatics: No axilla or inguinal lymphadenopathy - Problems (1) Fall Current Visit: Yes Status: Acute Plan: Patient telemetery did not show any arrhythmia, she had a normal coronaries recently, her fall is most likely non cardiac, would recommend to continue monitor on tele.
[2024-04-22 14:16] LABS: Barbiturates NEGATIVE (NEGATIVE); Benzodiazepines POSITIVE (NEGATIVE); Cocaine NEGATIVE (NEGATIVE); METHAMPHETAM NEGATIVE (NEGATIVE); Methadone NEGATIVE (NEGATIVE); Opiates NEGATIVE (NEGATIVE); Phencyclidine NEGATIVE (NEGATIVE); THC Cannibis NEGATIVE (NEGATIVE)
[2024-04-22] MEDS: FLUMAZENIL 0.1 MG/ML (5 mL VIAL) IV ONE (16:07)
[2024-04-23 06:42] LABS: Absolute Eosinophils 0.1 K/uL (0-0.5); Absolute Lymphocytes (CBC) 1.2 K/uL (0.7-4.9); Absolute Monocytes 0.5 K/uL (0.1-1.3); Basophils % 0.7 % (0-1.3); Eosinophils % 2.1 % (0-4.4); Hematocrit 38.2 % (36.0-45.0); Hemoglobin 12.4 g/dL (12.0-15.0); Lymphocytes % 24.8 % (15.3-44.8); MCH 33.6 pg (27.0-35.0); MCHC 32.5 g/dL (32.0-36.0); MCV 103.3 fL (80-100); Monocytes % 10.5 % (3.3-12.3); Neutrophils % 61.9 % (41.7-73.7); Nucleated Red Blood Cells % 0.3 % (0-0); Platelets 208 thou/uL (152-406); Red Cell Distribution Width 14.1 % (12.1-15.2)
[2024-04-23 06:59] LABS: Albumin 2.7 g/dL (3.4-5.0); Anion Gap 6.4 mEq/L (5.0-15.0); C-Reactive Protein 21.7 mg/L (<3.00); Phosphorus 2.3 mg/dL (2.5-4.9); Potassium 4.4 mEq/L (3.5-5.1)
[2024-04-23 08:23] LABS: Specific Gravity 1.018 (1.005-1.030); Sqamous Epithelial None Seen /HPF (None Seen); Urine Bacteria None Seen /HPF (<20); Urine Bilirubin NEGATIVE (Negative); Urine Blood 3+ (OVER) (Negative); Urine Clarity Extremely Turbid (Clear); Urine Color Colorless (Yellow); Urine Culture Reflex Order NOT NEEDED; Urine Glucose NEGATIVE (Negative); Urine Ketones NEGATIVE (Negative); Urine Microscopic Reflex YN ORDER UMIC; Urine Nitrite NEGATIVE (Negative); Urine Protein 1+ (Negative); Urine RBC >50 /HPF (None Seen); Urine Urobilinogen Normal (Normal); Urine pH 6.5 (5.0-7.0)
[2024-04-23] MEDS: ENOXAPARIN 40 MG/0.4 ML SQ SCH (09:22)
[2024-04-23] MEDS: POTASS/SODIUM PHOSPHATE 1 PKT POWD.PACK PO SCH (09:23)
[2024-04-23 09:45] LABS: UR PROTEIN 99.7 mg/dL (<11.9); Urine Protein/Creatinine Ratio 1.12 ratio (<0.15)
--- NOTE | 2024-04-23 18:27 | P.PN ---
Subjective Date of Service: 04/23/24 Chief Complaint: shortness of breath Subjective: New changes, C/O voiced (C/o of being lethargic) <Jodi Bettencourt - Last Filed: 04/23/24 18:21> Date of Service: 04/23/24 <LeeJeff botellomarie - Last Filed: 04/23/24 21:34> Review of Systems 10-point ROS is otherwise unremarkable General: Weakness Respiratory: SOB with Excertion Genitourinary: Dysuria <Jodi Bettencourt - Last Filed: 04/23/24 18:21> Physical Examination - Vital Signs Temperature: 98.4 F Blood Pressure: 136/92 Pulse: 99 Respirations: 18 Pulse Ox (%): 90 - Physical Exam General: Alert, In no apparent distress HEENT: Atraumatic, PERRLA, EOMI Neck: Supple, JVD not distended Respiratory: Normal air movement, Diminished Cardiovascular: Regular rate/rhythm, Normal S1 S2 Capillary refill: <2 Seconds Gastrointestinal: Normal bowel sounds, No tenderness Musculoskeletal: No tenderness Integumentary: No rashes Neurological: Normal speech, Normal tone, Normal affect Lymphatics: No axilla or inguinal lymphadenopathy Urinary: Bladder distention Rectal: Deferred <Jodi Bettencourt - Last Filed: 04/23/24 18:21> Assessment And Plan - Plan Acute kidney injury Urinary Retention -Likely 2/2 Losartan and hydrochlorothiazide, continue to hold -Dr. Blake consulted and following -Creatinine improved; 1.04 -IVF completed -Bladder scan ordered with >400mL -Straight cath X1 with repeat bladder scan post 6h -Continue to monitor output and kidney function Pneumonia -CXR completed -IVF stopped d/t course lung sounds -Continue oxygen PRN, patient reports PRN home use -Continue Rocephin for now -Possible opportunistic infection HIV -Continue home medications -Family to bring home Biktarvy -Viral load; non-detected- 04/21 & 05/05 NSTEMI -Troponin trended flat -Cardiology consulted, with recommendations for continuous telemetry, likely noncardic Hyperglycemia-resolved -Continue to monitor on AM labs -Improved since admission -A1C 6.0% Fall -Fall without injuries on 04/22/2024 -[facility] without acute findings -Continue to monitor -Fall risk precautions -Continue to work with PT -May need SNF placement DVT Ppx: Lovenox Code status: Full Code Discharge Plan: [facility] (Possible need for SNF placement?) Plan to discharge in: 48 Hours - Code Status/Comfort Care Code Status Assessed: Yes (FULL CODE) <Jodi Bettencourt - Last Filed: 04/23/24 18:21> Physician Review: Patient Assessed, Agree with Above Assessment and Plan <Carissa Howard - Last Filed: 04/23/24 21:34>
--- NOTE | 2024-04-23 21:36 | PN ---
Date of Progress Note: 04/23/2024 Subjective: The patient is admitted to the hospital because of acute kidney injury. She developed a cute kidney injury secondary to prerenal azotemia and volume depletion. She completed IV fluids. Re nal function gradually improved. Review of Systems: Denies chest pain, palpitation. Physical Examination: Lungs: Clear to auscultation bilaterally. Heart: S1, S2. Abdomen: Soft, benign. Extremities: No edema. Impression And Plan: 1. Acute kidney injury. Avoid nephrotoxic medication and avoid IV contrast. The patient developed a cute kidney injury secondary to volume depletion. IV fluids were used for hydration. Continue p.o. hydration. 2. Hypertension, controlled. Continue current medication. 3. Hypernatremia. Discontinue IV fluids and sodium level stabilized. 4. Human immunodeficiency virus. Management per primary team. 5. Chronic obstructive pulmonary disease. Continue treatment. EB/MODL Voice ID: [id number] Report ID: [id number]
[2024-04-24 06:29] LABS: Absolute Eosinophils 0.1 K/uL (0-0.5); Absolute Lymphocytes (CBC) 1.1 K/uL (0.7-4.9); Absolute Monocytes 0.5 K/uL (0.1-1.3); Absolute Neutrophil 2.3 K/uL (1.8-8.0); Basophils % 1.1 % (0-1.3); Eosinophils % 2.7 % (0-4.4); Hematocrit 37.2 % (36.0-45.0); Hemoglobin 12.3 g/dL (12.0-15.0); Lymphocytes % 27.3 % (15.3-44.8); MCH 34.1 pg (27.0-35.0); MCHC 33.2 g/dL (32.0-36.0); MCV 102.9 fL (80-100); MPV 9.2 fL (7.6-11.3); Monocytes % 11.4 % (3.3-12.3); Neutrophils % 57.5 % (41.7-73.7); Nucleated Red Blood Cells % 0.3 % (0-0); Platelets 214 thou/uL (152-406); RBC Red Blood Cell Count 3.61 M/uL (3.86-4.86); Red Cell Distribution Width 13.8 % (12.1-15.2)
[2024-04-24 06:44] LABS: Albumin 2.7 g/dL (3.4-5.0); Anion Gap 7.5 mEq/L (5.0-15.0); Phosphorus 2.9 mg/dL (2.5-4.9); Potassium 4.5 mEq/L (3.5-5.1)
--- NOTE | 2024-04-24 09:33 | P.PN ---
Subjective Date of Service: 04/24/24 Chief Complaint: shortness of breath Subjective: No new changes, C/O voiced (Patient reports voiding after straight cath yesterday and that she is feeling better) Review of Systems 10-point ROS is otherwise unremarkable Respiratory: SOB with Excertion Physical Examination - Vital Signs Temperature: 97.4 F Blood Pressure: 136/81 Pulse: 96 Respirations: 18 Pulse Ox (%): 100 - Physical Exam General: Alert, In no apparent distress HEENT: Atraumatic, PERRLA, EOMI Neck: Supple, JVD not distended Respiratory: Normal air movement, Diminished, Other (on home oxygen 2L/NC PRN ) Cardiovascular: Regular rate/rhythm, Normal S1 S2 Capillary refill: <2 Seconds Gastrointestinal: Normal bowel sounds, No tenderness Musculoskeletal: No tenderness Integumentary: No rashes Neurological: Normal speech, Normal tone, Normal affect Lymphatics: No axilla or inguinal lymphadenopathy Assessment And Plan - Plan Acute kidney injury, improving Urinary Retention, resolved -Likely 2/2 Losartan and hydrochlorothiazide, continue to hold -Dr. Blake consulted and following -Creatinine improving;1.16 , continue to monitor -IVF completed -Bladder scan ordered with >400mL on 04/23 -Straight cath X1 with patient voiding after first straight cath, continue to monitor -Continue to monitor output -Renal US pending completion Suspected Pneumonia, improving -IVF stopped d/t course lung sounds -Continue oxygen PRN, patient reports PRN home use -Continue Rocephin for now -Possible opportunistic infection HIV -Continue home medications -Family brought in home Biktarvy -Viral load; non-detected- 04/21 & 05/05 NSTEMI -Troponin trended flat -Cardiology consulted, with recommendations for continuous telemetry, likely non-cardic Hyperglycemia-resolved -Continue to monitor on AM labs -Improved since admission -A1C 6.0% Fall -Fall without injuries on 04/22/2024 -CTH without acute findings -Continue to monitor -Fall risk precautions -Continue to work with PT DVT Ppx: Lovenox Code status: Full Code Discharge Plan: Home Plan to discharge in: 24 Hours - Code Status/Comfort Care Code Status Assessed: Yes Physician Review: Patient Assessed, Agree with Above Assessment and Plan
--- NOTE | 2024-04-24 15:46 | PN ---
Date of Progress Note: 04/24/2024 Chief Complaint: Acute kidney injury. The patient was treated with IV fluids for severe volume depl etion, prerenal azotemia and acute kidney injury secondary to volume depletion. She is feeling jordan r and she tolerates p.o. intake. Review of Systems: Denies fever, chills. Physical Examination: Lungs: Clear to auscultation bilaterally. Heart: S1, S2. Abdomen: Soft, benign. Extremities: No edema. Impression And Plan: 1. Acute kidney injury. Avoid nephrotoxic medication and avoid IV contrast. The patient developed a cute kidney injury in setting of severe volume depletion. Continue IV fluids for hydration as needed currently, although the patient can tolerate p.o. hydration. Monitor fluids status, Volemia status. 2. Hypertension, controlled. Continue current medication. 3. Hypernatremia due to dehydration. IV fluids were soft and sodium level stabilized. Continue p.o. hydration. 4. Human immunodeficiency virus, management with medication per Primary Team. 5. Chronic obstructive pulmonary disease. Continue current treatment. EB/MODL Voice ID: [id number] Report ID: [id number]
--- NOTE | 2024-04-24 22:58 | RAD REPORT ---
EXAMINATION: US RETROPERITONEUM CLINICAL INDICATION: [facility] MAIN Hypercalcemia. Hematuria TECHNIQUE: Real-time ultrasonography of the retroperitoneum was performed. COMPARISON: No prior exam. FINDINGS: RIGHT KIDNEY: Right renal length measurement: 8.7 cm. Normal in echogenicity and size. No calculus, s olid mass or hydronephrosis. LEFT KIDNEY: Left renal length measurement: 7.9 cm. Normal in echogenicity and size. No calculus, treva id mass or hydronephrosis. URINARY BLADDER: Normal. ADDITIONAL FINDINGS: None. IMPRESSION: No acute or significant abnormalities.
[2024-04-25 06:42] LABS: Absolute Eosinophils 0.1 K/uL (0-0.5); Absolute Lymphocytes (CBC) 1.2 K/uL (0.7-4.9); Absolute Monocytes 0.6 K/uL (0.1-1.3); Absolute Neutrophil 3.1 K/uL (1.8-8.0); Basophils % 0.8 % (0-1.3); Eosinophils % 2.8 % (0-4.4); Hemoglobin 11.9 g/dL (12.0-15.0); Lymphocytes % 23.4 % (15.3-44.8); MCHC 33.1 g/dL (32.0-36.0); MCV 102.8 fL (80-100); MPV 8.8 fL (7.6-11.3); Monocytes % 11.1 % (3.3-12.3); Neutrophils % 61.9 % (41.7-73.7); Nucleated Red Blood Cells % 0.1 % (0-0); Platelets 193 thou/uL (152-406); Red Cell Distribution Width 13.6 % (12.1-15.2)
[2024-04-25 06:50] LABS: Albumin 2.4 g/dL (3.4-5.0); Anion Gap 6.4 mEq/L (5.0-15.0); Phosphorus 2.9 mg/dL (2.5-4.9); Potassium 4.4 mEq/L (3.5-5.1)
[2024-04-25 12:11] VITALS: BP 106/78; TEMP 97
[2024-04-25 12:14] VITALS: O2SAT 97
--- NOTE | 2024-04-25 13:41 | PN ---
Date of Progress Note: 04/25/2024 Subjective: No overnight events. Creatinine down to 1.2. The patient cleared for discharge from ne phrology point of view. Objective: Vital Signs: Temp 97, pulse rate 92, blood pressure 106/78. General: Awake, alert, not in distress. Neck: Supple. No elevated JVD. Heart: Regular rate and rhythm. Normal S1, S2. Chest: Clear to auscultation bilaterally. No rales or wheezes. Abdomen: Soft and nontender. Extremities: No edema. Labs: Sodium 139, potassium 4.4, BUN 21, creatinine 1.2. Assessment And Plan: 1. Acute kidney injury. Creatinine improved from 3.6 to 1.2 due to hydration. Renal dose medication . 2. Hypertension. Blood pressure controlled. 3. Hypernatremia due to saline, resolved, diet intake as tolerated. 4. Hyperparathyroidism. PTH 250. Recommend repeat labs as an outpatient and follow up with Endocrin ology if PTH remains elevated. Thanks for allowing me to participate in the patient's care. Total time spent 55 minutes including d ocumentation, reviewing labs, and placing orders. The patient cleared for discharge from nephrology point of view. HRINA/TAMI Voice ID: [id number] Report ID: [id number]
--- NOTE | 2024-04-25 15:00 | P.DS ---
Admission Date: 04/20/24 Discharge Date: 04/25/24 Disposition: ROUTINE DISCHARGE Discharge Condition: GOOD Reason for Admission: shortness of breath Brief History of Present Illness: Patient is a 59-year-old female with a past medical history of Back pain, CHF, Chronic pain, COPD on 4 LNC, HIV, PCP pneumonia, Hypercholesterolemia, Hypertension, CAD with stent, seasonal allergie, CHF, chronic pain, COPD on 4 L nasal cannula, hypertension and presented to the ER with shortness of breath X1day. She reported not picking up her prescriptions after previous discharge. Intial labs noted elevated troponin, with no reported chest pain. Patient was then admitted for acute hypoxic respiratory failure secondary to pneumonia with NSTEMI. Hospital Course: Acute kidney injury Urinary Retention Hematuria This was initially thought to be Likely 2/2 Losartan and hydrochlorothiazide which was held while inpatient, however Dr. Blake (Nephrology) was consulted and followed while inpatient and it may have been due to patient being given Bactrim, steroids, and a large dose of Lasix. Renal US was completed without acute findings. Patient received IV fluids and antibiotics with resolved symptoms and is complete antibiotics at home and follow up with Nephrology outpatient. Suspected Pneumonia Vs volume overload Secondary to IV fluids and possible opportunistic infection. Patient with resolved symptoms after IVF discontinued and Antibiotics initiated. Patient to continue with PRN oxygen at this time and follow up with PCP HIV Continued home medications while inpatient and advised to follow up with outpatient clinic, Viral load; non-detected- 04/21 & 05/05 NSTEMI Troponin trended flat and Cardiology consulted, with recommendations for continuous telemetry, likely non-cardiac Hyperglycemia Suspected hyperparathyroidism A1C 6.0% and PTH elevated, recommendations patient to follow-up with endocrinology Fall Fall without injuries on 04/22/2024. CT of head without acute findings. Patient advised on taking prescriptions only as prescribed as she was found taking her own home medications while hospitalized. Hx of Hypertension Patient remained stable while inpatient and should monitor blood pressure closely at home. Follow up with PCP/Nephrology outpatient. Vital Signs/Physical Exam: Temp Pulse Resp BP Pulse Ox 97 F 92 H 16 106/78 97 04/25/24 12:00 04/25/24 12:00 04/25/24 12:00 04/25/24 12:00 04/25/24 12:00 General: Alert, In no apparent distress HEENT: Atraumatic, PERRLA, EOMI Neck: Supple, JVD not distended Respiratory: Normal air movement, Diminished, Other (oxygen PRN 2L/NC ) Cardiovascular: Regular rate/rhythm, Normal S1 S2 Gastrointestinal: Normal bowel sounds, No tenderness Musculoskeletal: No tenderness Integumentary: No rashes Neurological: Normal speech, Normal tone, Normal affect Lymphatics: No axilla or inguinal lymphadenopathy External genitalia: Deferred Rectal: Deferred Laboratory Data at Discharge: WBC 5.00 thou/uL (4.3-10.9) 04/25/24 06:19 Hgb 11.9 g/dL (12.0-15.0) L 04/25/24 06:19 Hct 36.0 % (36.0-45.0) 04/25/24 06:19 Plt Count 193 thou/uL (152-406) 04/25/24 06:19 Sodium 139 mEq/L (136-145) 04/25/24 06:19 Potassium 4.4 mEq/L (3.5-5.1) 04/25/24 06:19 BUN 21 mg/dL (7-18) H 04/25/24 06:19 Creatinine 1.20 mg/dL (0.55-1.02) H 04/25/24 06:19 Glucose 99 mg/dL (74-106) 04/25/24 06:19 Uric Acid 6.3 mg/dL (2.6-6.0) H 04/22/24 07:29 Phosphorus 2.9 mg/dL (2.5-4.9) 04/25/24 06:19 Magnesium 2.2 mg/dL (1.6-2.4) 04/20/24 05:38 Total Bilirubin 0.3 mg/dL (0.2-1.0) 04/19/24 03:29 AST 48 U/L (15-37) H 04/19/24 03:29 ALT 57 U/L (13-56) H 04/19/24 03:29 Alkaline Phosphatase 114 U/L (45-117) 04/19/24 03:29 Home Medications: Nystatin 5 ml PO QID PRN 01/11/18 Zolpidem Tartrate 10 mg PO BEDTIME PRN 01/11/18 ALPRAZolam [Xanax*] 1 mg PO TID #90 tab 02/22/24 Albuterol Neb [Proventil 0.083% Neb Soln] 1.25 mg NEB DAILY 30 Days #30 amp 03/21/24 Amitriptyline HCl 100 mg PO BEDTIME 30 Days #30 tab 03/21/24 Atorvastatin Calcium [Lipitor] 40 mg PO BEDTIME 30 Days #30 tab 03/21/24 Gabapentin 100 mg PO TID #90 03/21/24 Ipratropium Neb [Atrovent*] 0.5 mg NEB DAILY 30 Days #30 amp 03/21/24 Nebulizer Accessories [Adult Aerosol Mask] 1 each MC DAILY 30 Days #1 ea 03/21/24 Nebulizer and Compressor [[place] Choice Nebulizer] 1 each MC DAILY 30 Days #1 ea 03/21/24 Amlodipine [Norvasc*] 10 mg PO DAILY #30 tab 04/17/24 Aspirin Chewable [Aspirin Chewable*] 1 tab PO DAILY 04/17/24 Baclofen 5 mg PO BID 04/17/24 Bictegrav/Emtricit/Tenofov Ala [Biktarvy 50-200-25 mg Tablet] 1 tab PO DAILY 04/17/24 Doxepin HCl [Sinequan*] 10 mg PO BEDTIME 04/17/24 Duloxetine HCl 60 mg PO 04/17/24 Fluticasone/Umeclidin/Vilanter [Trelegy Ellipta 200-62.5-25] 1 puff PO DAILY 04/17/24 Hydrocodone 7.5/APAP 325 [[place] 7.5/325 mg*] 1 tab PO Q12H PRN #30 tab 04/17/24 Melatonin 10 mg PO BEDTIME PRN PRN #30 cap 04/17/24 Metoprolol Tartrate [Lopressor*] 25 mg PO BID #60 tab 04/17/24 Zolpidem Tartrate [Ambien] 5 mg PO BEDTIME PRN PRN #20 tab 04/17/24 Cefuroxime [Ceftin] 500 mg PO BID 5 Days #10 tab 04/22/24 New Medications: Cefuroxime [Ceftin] 500 mg PO BID 5 Days #10 tab Physician Discharge Instructions: 1. Please call and schedule a follow-up appointment with your PCP in 3-5 days - Please follow-up with your PCP for medication refills/adjustments 2. Please call and schedule a follow-up appointment with Dr. Blake in one week 3. Continue heart healthy diet, stay hydrated 4. activity restrictions fall precaution 5. Return to the ED if symptoms worsen 6. Follow up with Endocrinology outpatient within 1-2weeks for repeat labs and continued outpatient workup 7. Take prescriptions as prescribed only Diet: Renal Activity: Fall precautions Followup: [facility] [Primary Care Provider] - Time spent managing pt's care (in minutes): 34
== END 2024-04-25 15:28 | disposition home or self-care (01) | DRG 974 ==
LOC: ER 01:00 → 4TH 09:58 → OBSVTOIN 04-20 18:55 → 4TH 04-22 21:37
PROVIDERS: ADMIT Hospitalist; ATTEND Internal Medicine Sleep Medicine
DX: B20 Human immunodeficiency virus [HIV] disease (principal); I21.4 Non-ST elevation (NSTEMI) myocardial infarction; B59 Pneumocystosis; J96.01 Acute respiratory failure with hypoxia; J44.0 Chronic obstructive pulmonary disease with (acute) lower respiratory infection; I50.32 Chronic diastolic (congestive) heart failure; N17.9 Acute kidney failure, unspecified; E87.1 Hypo-osmolality and hyponatremia; J44.1 Chronic obstructive pulmonary disease with (acute) exacerbation; E87.0 Hyperosmolality and hypernatremia; I11.0 Hypertensive heart disease with heart failure; G89.29 Other chronic pain; J30.2 Other seasonal allergic rhinitis; E86.9 Volume depletion, unspecified; E21.3 Hyperparathyroidism, unspecified; E78.00 Pure hypercholesterolemia, unspecified; I25.10 Atherosclerotic heart disease of native coronary artery without angina pectoris; F03.90 Unspecified dementia, unspecified severity, without behavioral disturbance, psychotic disturbance, mood disturbance, and anxiety; R73.9 Hyperglycemia, unspecified; R33.9 Retention of urine, unspecified; Z60.2 Problems related to living alone; Z95.5 Presence of coronary angioplasty implant and graft; Z79.82 Long term (current) use of aspirin; Z79.899 Other long term (current) drug therapy; Z90.710 Acquired absence of both cervix and uterus
CPT/HCPCS: 36415; 70450; 71045; 71275; 76770; 80048; 80069; 80076; 80307; 81001; 82550; 82570; 83036; 83735; 83880; 83970; 84145; 84156; 84484; 84550; 85025; 86140; 93005; 94640; 94760; 96374; 97116; 97161; 97530; 99285; G0378; J0696; J1650; J1940; J2919; J7030; J7040; J7613; J7644; Q9967

== ENCOUNTER 2024-06-03 10:39 | Emergency (ER) | payer OTHER ==
[2024-06-03] MEDS ORDERED: NA CHLORIDE 0.9% 500 ML ONE (11:26)
[2024-06-03 11:27] LABS: Absolute Lymphocytes (CBC) 1.1 K/uL (0.7-4.9); Absolute Monocytes 0.3 K/uL (0.1-1.3); Basophils % 1.3 % (0-1.3); Eosinophils % 1.3 % (0-4.4); Hematocrit 37.9 % (36.0-45.0); Hemoglobin 12.9 g/dL (12.0-15.0); Lymphocytes % 30.7 % (15.3-44.8); MCHC 34.1 g/dL (32.0-36.0); MCV 99.7 fL (80-100); MPV 9.5 fL (7.6-11.3); Monocytes % 9.2 % (3.3-12.3); Neutrophils % 57.5 % (41.7-73.7); Platelets 219 thou/uL (152-406); Red Cell Distribution Width 15.1 % (12.1-15.2)
--- OUTSIDE RECORDS SUMMARY | 2024-06-03 11:31 | XMS REPORT | Continuity of Care Document ---
Author Name Unknown Address [address] [facility] [place] [address] [place] [address] [facility] [place] Address [address] [facility] [place] [address] [place] [address] Care Team Providers Care Solderer Assembly Repair Name Role Phone Delfino Schumacher [facility] Physician Zaria Orellana Attending Clinician Unavail able Doctor Unassigned, [place] Attending Clinician U Lianet Morin Attending Clinician [phone] Lj Paredes RN Attending Clinician Unavail able KVNG ROBERSON Attending Clinician Unavailable Anyi Munguia NP Attending Clinician [phone] Kvng Roberson DO Attending Clinician GASTON HOBSB Attending Clinician Unavailable Gaston Hobbs MD Attending Clinician [phone] Kasandra Cha Attending Clinician [phone] LEE HENDERSON Attending Clinician Unavailab CLARITZA Booth Attending Clinician Unavail able Doctor Unassigned, [place] Attending Clinician U iván Almaguer RN, Jeanine Jones Attending Clinician UnaGuerline Hemphill MD Attending Clinician [phone] Guero Pantoja Attending Clinician [phone] GUERO MARTINEZ Attending Clinician Unavailable Jeanie NERI, Osman Loya Attending Clinician Unavaila harvey RODRIGUEZ Attending Clinician Unavailable Dean_Robert Attending Clinician Unavailable APOLINAR WEBER Attending Clinician Unavailable Pgy2 Attending Clinician Unavailable Apolinar Weber MD Attending Clinician [phone] Enedina Mccarty MD Attending Clinician [phone] BILLY VALERIO Attending Clinician Unavailabl Toby Roe MD Attending Clinician [phone] Delores Garcia MD, Tressa Schwartz Attending Clinician [phone] Billy Valerio MD Attending Clinician + [phone] Evette Dunn MA Attending Clinician Unavailab KENNEDI Pop Attending Clinician Unavailable Eduarda RIDES SUPERVISOR, Kennedi Islas Attending Clinician [phone] Mikael Quiroz Attending Clinician + [phone] LJ LIANG Attending Clinician Unavailable Lj Mcguire Attending Clinician + [phone] MARGARET NUNEZ Attending Clinician Unavailab Margaret Rodgers DO Attending Clinician [phone] Bonny Morris MD K.HAg Attending Clinician + [phone] BONNY MORRIS K.HAg Attending Clinician Unavaila Terri Clemente Attending Clinician [phone] Dawn Mendoza Attending Clinician [phone] Sammi Attending Clinician Unavailable Josse Steele Attending Clinician [phone] JOSSE LOCKHART Attending Clinician Unavaila KVNG Weber Admitting Clinician Unavailable Kvng Roberson DO Admitting Clinician [phone] GASTON HOBBS Admitting Clinician Unavailable JENNIFER Admitting Clinician Unavailable Av Admitting Clinician Unavailable Tressa ESTRELLA JR Admitting Clinician Unavailtressa Estrella Jr., MD, Tressa Schwartz Admitting Clinician [phone] KENNEDI BLUE Admitting Clinician Unavailable Sammi Admitting Clinician Unavailable Payers Payer Name Policy Type Policy Number Effective Date Expirati on Date Source [facility] Dual Complete (HMO-POS D-SNP) [id number] [facility] [employer] (MEDICARE REPLACEMENT HMO) [id number] 2020 00:00:00 Problems Condition Name Condition Details Condition Category Status Onset Date Resolution Date Last Treatment Date Treating Clinician Comments Source COPD exacerbati on COPD exacerbati on Disease Active 05-18 00:00: 00 [facility] Troponin I above reference range Troponin I above reference range Disease Active 05-18 00:00: 00 [facility] Other hyperlipid emia Other hyperlipid emia Disease Active 05-18 00:00: 00 [facility] TAIWO (acute kidney injury) TAIWO (acute kidney injury) Disease Active 4 00:00: 00 [facility] Aortic stenosis Aortic stenosis Disease Active 05-18 00:00: 00 [facility] Coronary artery disease involving [place] coronary artery of [place] heart without angina pectoris Coronary artery disease involving [place] coronary artery of [place] heart without angina pectoris Disease Active 05-18 00:00: 00 [facility] Acute cough Acute cough Disease Active 4- 00:00: 00 [facility] Acute cough Acute cough Disease Active 4- 00:00: 00 [facility] 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 Active 5-17 00:00: 00 [facility] Bacteremia Bacteremia Disease Active 06-09 00:00: 00 [facility] Medically noncomplia nt Medically noncomplia nt Disease Active 7- 00:00: 00 [facility] Thrush Thrush Disease Active 09-02 00:00: 00 [facility] Obesity (BMI 30-39.9) Obesity (BMI 30-39.9) Disease Active 05-31 00:00: 00 [facility] Genital warts Genital warts Disease Active 08-25 00:00: 00 [facility] H/O: hysterecto my H/O: hysterecto my Disease Active 08-25 00:00: 00 [facility] [id number] Allergic rhinitis, unspecifie d seasonalit y, unspecifie d trigger Problem [facility] [id number] Mental developmen carmen delay Problem [facility] [id number] History of hepatitis C Problem [facility] [id number] 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) Problem [facility] 09788862 HIV disease Problem [facility] [id number] +5th digit eff 11/12/19*St age 1 chronic kidney disease Problem [facility] [id number] Chronic kidney disease, unspecifie d CKD stage Problem [facility] 37707830 Essential hypertensi on Problem [facility] 478570476 Chronic heart failure with preserved ejection fraction Problem [facility] [id number] Pulmonary emphysema, unspecifie d emphysema type Problem [facility] 997902666 Mental disability Problem [facility] [id number] [id number] Lumbago with sciatica, right side Problem [facility] 768850967 Lumbago with sciatica, left side Problem [facility] [id number] 07 On home O2 Problem Commo n [facility] [id number] Environmen carmen allergies Problem [facility] 53127037 Vitamin D deficiency Problem [facility] 25191204 Other chronic pain Problem [facility] 29050018 Cardiac murmur Problem [facility] 06290518 CHRIS (generaliz ed anxiety disorder) Problem [facility] 857216323 Mixed hyperlipid emia Problem [facility] 813724263 Seasonal allergies Problem [facility] Allergies, Adverse Reactions, Alerts Allergy Name Allergy Type Status Severity Reaction(s) Onset Date Inactive Date Treating Clinician Comments Source NO KNOWN ALLERGIE S Drug Class Active [facility] Social History Social Habit Start Date Stop Date Quantity Comments Source Gender identity [facility] Sexual orientation U [facility] History of Tobacco Use Current Smoker [facility] Sex Assigned At [facility] Alcoholic beverage intake 2023-05-16 00:00:00 2023-05-16 00:00:00 Current non-drinker of alcohol (finding) [facility] Alcohol intake 2023-05-16 00:00:00 2023-05-16 00:00:00 Current non-drinker of alcohol (finding) [facility] Exposure to SARS-CoV-2 (event) 2022-03-24 00:00:00 2022-04-03 13:07:00 Not sure [facility] History of Social function 2022-04-03 00:00:00 2022-04-03 00:00:00 [facility] Tobacco use and exposure 2022-04-03 00:00:00 2022-04-03 00:00:00 Smokeless tobacco non-user [facility] Smoking Status Start Date Stop Date Source Current Smoker 2023-12-06 00:00:00 [facility] Never smoked tobacco [facility] Medications Ordered Medication Name Filled Medication Name Start Date Stop Date Current Medication? Ordering Clinician Indication Dosage Frequency Signature (SIG) Comments Components Source aspirin 81 mg tablet,ruchi yed release 05-27 00:00: 00 Yes mg Delfino F You albuterol sulfate HFA 90 mcg/actuati on aerosol inhaler 05-27 00:00: 00 Yes mcg/act uation Delfino F You albuterol sulfate HFA 90 mcg/actuati on aerosol inhaler 2025-0 4-08 00:00: 00 Yes mcg/act uation Delfino Orta ibuprofen 800 mg tablet 05-19 00:00: 00 Yes 1mg Delfino Orta duloxetine 60 mg capsule,del ayed release 05-13 00:00: 00 Yes 1mg Delfino Orta albuterol sulfate HFA 90 mcg/actuati on aerosol inhaler 05-07 00:00: 00 Yes mcg/act uation Delfino Orta Biktarvy 50 mg-200 mg-25 mg tablet 05-05 00:00: 00 Yes mg Delfino Orta albuterol sulfate HFA 90 mcg/actuati on aerosol inhaler 05-05 00:00: 00 Yes mcg/act uation Delfino Orta amlodipine 10 mg tablet 05-05 00:00: 00 Yes 1mg Delfino Orta losartan 100 mg-hydrochl orothiazide 12.5 mg tablet 05-05 00:00: 00 Yes 1mg Delfino Orta metoprolol tartrate 25 mg tablet 05-05 00:00: 00 Yes 1mg Delfino Orta atorvastati n 40 mg tablet 05-05 00:00: 00 Yes 1mg Delfino Orta fluticasone propionate 50 mcg/actuati on nasal spray,suspe nsion 05-05 00:00: 00 Yes 2mcg/ac tuation Delfino Orta doxepin 10 mg capsule 3 00:00: 00 Yes 1mg Delfino Orta duloxetine 60 mg capsule,del ayed release 3- 00:00: 00 Yes 1mg Delfino Orta aspirin 81 mg tablet,ruchi yed release 2- 00:00: 00 Yes mg Delfino Orta Biktarvy 50 mg-200 mg-25 mg tablet 2- 00:00: 00 Yes mg Delfino Orta amlodipine 10 mg tablet 2- 00:00: 00 Yes 1mg Delfino Orta losartan 100 mg-hydrochl orothiazide 12.5 mg tablet 2- 00:00: 00 Yes 1mg Delfino Orta atorvastati [...] release 02-25 00:00: 00 Yes 1mg Delfino Orta albuterol sulfate HFA 90 mcg/actuati on aerosol inhaler - 00:00: 00 Yes mcg/act uation Delfino Orta ibuprofen 800 mg tablet 02-24 00:00: 00 Yes 1mg Delfino Orta trazodone 50 mg tablet 02-24 00:00: 00 Yes 12mg Delfino Orta albuterol sulfate HFA 90 mcg/actuati on aerosol inhaler 2023-02 00:00: 00 Yes mcg/act uation Delfino Orta baclofen 5 mg tablet 2023-02 00:00: 00 Yes 1mg Delfino Orta duloxetine 30 mg capsule,del ayed release 2023-02 2- 00:00: 00 Yes 1mg Delfino Orta ibuprofen 800 mg tablet 2023-02 2- 00:00: 00 Yes 1mg Delfino Orta ibuprofen 800 mg tablet 2023-02 2-15 00:00: 00 Yes 1mg Delfino Orta triamcinolo ne acetonide 0.1 % topical cream 2023-02- 00:00: 00 Yes 1% Delfino Orta fluticasone propionate 50 mcg/actuati on nasal spray,suspe nsion 2023-02- 00:00: 00 Yes 2mcg/ac tuation Delfino Orta duloxetine 30 mg capsule,del ayed release 2023-02 00:00: 00 Yes 1mg Delfino Orta albuterol sulfate HFA 90 mcg/actuati on aerosol inhaler 2023-02- 00:00: 00 Yes mcg/act uation Delfino Orta Qvar RediHaler 80 mcg/actuati on HFA breath activated aerosol 2023-02- 00:00: 00 Yes 12mcg/a ctuatio n Delfino Orta ibuprofen 800 mg tablet 2023-02- 00:00: 00 Yes 1mg Delfino Orta Biktarvy [...] mcg/actuati on HFA breath activated aerosol 2023-02 0-08 00:00: 00 Yes 12mcg/a ctuatio n Delfino Orta baclofen 5 mg tablet 2023-02 0-08 00:00: 00 Yes 1mg Delfino Orta duloxetine [...] (Triamcinol one) 11-10 00:00: 00 No 40mg [facility] baclofen 5 mg tablet 11-01 00:00: 00 Yes 1mg Delfino Orta ibuprofen 800 mg tablet - 00:00: 00 Yes 1mg Delfino Orta duloxetine 30 mg capsule,del ayed release 11-01 00:00: 00 Yes 1mg Delfino Orta aspirin 81 mg tablet,ruchi yed release 9-04 00:00: 00 Yes mg Delfino Orta albuterol sulfate HFA 90 mcg/actuati on aerosol inhaler 30 00:00: 00 Yes mcg/act uation Delfino F You triamcinolo ne acetonide 0.1 % topical cream [...] uation Delfino Orta amlodipine 10 mg tablet 09-15 00:00: 00 Yes 1mg [...] Delfino Orta baclofen 5 mg tablet 0 -20 00:00: 00 Yes 1mg Delfino Orta melatonin [...] 80 mcg/actuati on HFA breath activated aerosol 0 08-08 00:00: 00 Yes 12mcg/a ctuatio n [...] 05-20 00:00: 00 06-20 04:59 :00 No [id number] 81mg Take 1 tablet by mouth in the morning for 30 days. [facility] predniSONE 20 mg tablet 05-20 00:00: 00 05-24 04:59 :00 No [id number] 40mg Take 2 tablets by mouth in the morning for 3 days. [facility] ALPRAZOLAM ORAL 05-19 16:42: 32 Yes Take by mouth. [facility] celecoxib 400 mg capsule 05-19 16:42: 32 Yes 400mg Take 1 capsule by mouth in the morning. [facility] atorvastati n (LIPITOR) tablet 40 mg 05-19 02:00: 00 Yes 40mg 40 mg, Oral, QHS, First dose on 05/19/23 at 2100, Until Discontinu ed, Routine [facility] aspirin 81 mg tablet,ruchi yed release 05-19 00:00: 00 Yes mg Delfino Orta PREDNISONE 20MG 05-19 00:00: 00 Yes Delfino Endy You budesonide 0.5 mg/2 mL nebulizer solution 05-19 00:00: 00 06-19 04:59 :00 No [id number] 1mg Inhale 4 mL every 12 (twelve) hours for 30 days. [facility] aspirin EC tablet 81 mg 05-18 20:45: 00 Yes 81mg 81 mg, Oral, DAILY, First dose on 05/19/23 at 1545, Until Discontinu ed, Routine [facility] predniSONE (DELTASONE) tablet 40 mg 05-18 14:00: 00 Yes 40mg 40 mg, Oral, DAILY, First dose on 05/19/23 at 0900, Until Discontinu ed, Routine [facility] methylpredn isolone sod succ (SOLU-MEDRO L) injection 125 mg 05-17 10:00: 00 05-17 14:54 :19 No 125mg 125 mg, Slow IV Push, Q6H ABX, First dose on 05/18/23 at 0500, Until Discontinu ed, Routine [facility] budesonide (PULMICORT RESPULE) nebulizer solution 1 mg 05-17 07:00: 00 Yes 1mg 1 mg, Inhalation , Q12H, First dose on Sat05/18/23 at 0200, Until Discontinu ed, Routine
community board member approving non-formul fanta medication : LEFTY ABREU
[place] son for non-formul fanta use: Treatment failure with formulary alternativ e [facility] sulfamethox azole-trime thoprim (BACTRIM DS) 800-160 mg per tablet 1 tablet 05-17 01:00: 00 Yes 1{tbl} 1 tablet, Oral, QMON/SAT/ RI AT 1999, First dose on Sat05/17/23 at 1999, Until Discontinu ed, Routine
Reason for Anti-Infec tive: Empiric Non-Surgic al Prophylaxi s
Durat ion of therapy: 5 days [facility] predniSONE 20 mg tablet 05-17 00:00: 00 05-21 04:59 :00 No [id number] 20mg Take 1 tablet by mouth in the morning for 3 days. [facility] NaCl 0.9% (NS) IV infusion 1,000 mL 05-16 21:00: 00 Yes 1000mL at 75 mL/hr, IV Infusion, CONTINUOUS , Starting on Sat05/17/23 at 1600, Until Discontinu ed, Routine [facility] magnesium sulfate in water 2 gram/50 mL (4 %) infusion 2 g 05-16 18:45: 00 05-16 19:50 :00 No 2g 2 g, IV Piggyback, Administer over 60 Minutes, ONCE, 1 dose, On Sat05/17/23 at 1345, Routine [facility] losartan (COZAAR) tablet 100 mg 05-16 14:00: 00 Yes 100mg 100 mg, Oral, DAILY, First dose on Sat05/17/23 at 0900, Until Discontinu ed, Routine [facility] fluconazole (DIFLUCAN) tablet 200 mg 05-16 14:00: 00 Yes 200mg 200 mg, Oral, DAILY, First dose on Sat05/17/23 at 0900, Until Discontinu ed, ANTONIETTA
Re ason for Anti-Infec tive: Empiric Non-Surgic al Prophylaxi s
Durat ion of therapy: 5 days [facility] bictegrav-e mtricit-ten ofov ala (BIKTARVY) 50-200-25 mg [...] home supply? Yes
Dos age Form: Capsule [facility] predniSONE (DELTASONE) tablet 40 mg 05-16 14:00: 00 05-17 09:48 :38 No 40mg 40 mg, Oral, DAILY, 5 doses, First dose on Sat05/17/23 at 0900, Last dose on Sat05/21/23 at 0900, Routine [facility] metoprolol tartrate (LOPRESSOR) tablet 12.5 mg 05-16 13:00: 00 Yes 12.5mg 12.5 mg, Oral, BID, First dose on Sat05/17/23 at 0800, Until Discontinu ed, Routine [facility] fluticasone propionate (FLOVENT HFA) 220 mcg/actuati on inhaler 2 Puff 05-16 13:00: 00 Yes 2{puff} 2 Puff, Inhalation , Q12H, First dose on Sat05/17/23 at 0800, Until Discontinu ed, Routine
Is this order for a patient with suspected or confirmed COVID-19 infection? No [facility] cetirizine (ZYRTEC) tablet 10 mg 05-16 03:00: 00 Yes 10mg 10 mg, Oral, QHS, First dose on Sat05/16/23 at 2200, Until Discontinu ed [facility] amLODIPine (NORVASC) tablet 10 mg 05-16 03:00: 00 Yes 10mg 10 mg, Oral, DAILY, First dose on Sat05/16/23 at 2200, Until Discontinu ed, Routine [facility] heparin (porcine) injection 5,000 Units 05-16 03:00: 00 Yes 5000U 5,000 Units, Subcutaneo us, Q8H, First dose on Sat05/16/23 at 2200, Until Discontinu ed, Routine [facility] albuterol (VENTOLIN) inhaler 2 Puff 05-16 02:35: 18 Yes 2{puff} 2 Puff, Inhalation , Q6HPRN, Starting on Sat05/16/23 at 2135, Until Discontinu ed, Routine, Wheezing, Shortness of Breath [facility] ipratropium -albuteroL (DUONEB) 0.5 mg-3 mg(2.5 mg base)/3 mL nebulizer solution 3 mL 05-15 21:00: 00 05-15 18:01 :47 No 3mL 3 mL, Inhalation , QID, First dose on Sat05/16/23 at 1600, Until Discontinu ed, Routine [facility] azithromyci n (ZITHROMAX) 500 mg [...] y
Durat ion of therapy: 72 hours [facility] magnesium sulfate in water 2 gram/50 mL (4 %) infusion 2 g 05-15 19:45: 00 05-15 19:54 :00 No 2g 2 g, IV Piggyback, Administer over 60 Minutes, ONCE, 1 dose, On Farrah 05/16/23 at 1445, Routine [facility] albuterol (PROVENTIL) 2.5 mg /3 mL (0.083 %) nebulizer solution 7.5 mg 05-15 19:45: 00 05-15 18:54 :00 No 7.5mg 7.5 mg, Inhalation , ONCE, 1 dose, On Farrah 05/16/23 at 1445, ANTONIETTA [facility] acetaminoph en (TYLENOL) tablet 650 mg 05-15 19:30: 37 Yes 650mg 650 mg, Oral, Q6HPRN, Starting on Farrah 05/16/23 at 1430, Until Discontinu ed, Routine, Pain (scale 1-3) [facility] NaCl 0.9% (NS) bolus infusion 1,000 mL 05-15 18:30: 00 05-15 19:34 :00 No 1000mL at 999 mL/hr, 1,000 mL, IV Infusion, ONCE, 1 dose, On Farrah 05/16/23 at 1330, ANTONIETTA [facility] budesonide (PULMICORT RESPULE) nebulizer solution 1 mg 05-15 18:15: 00 05-15 17:40 :00 No 1mg 1 mg, Inhalation , ONCE, 1 dose, On Farrah 05/16/23 at 1315, Routine [facility] albuterol (PROVENTIL) 2.5 mg /3 mL (0.083 %) nebulizer solution 5 mg 05-15 18:00: 00 05-15 18:03 :00 No 5mg 5 mg, Inhalation , ONCE, 1 dose, On Farrah 05/16/23 at 1315, STAT [facility] methylpredn isolone sod succ (SOLU-MEDRO L) injection 125 mg 05-15 17:31: 00 05-15 17:41 :00 No 125mg 125 mg, Intravenou s, ONCE, 1 dose, On Sat05/16/23 at 1245, ANTONIETTA [facility] sodium chloride (NS) injection 5 mL 05-15 17:25: 52 Yes 5mL 5 mL, Intravenou s, PRN, Starting on Sat05/16/23 at 1225, Until Discontinu ed, Routine, IV line flushing [facility] IBUPROFEN 600MG 05-12 00:00: 00 Yes 600 Delfino Orta losartan 100 mg-hydrochl orothiazide 12.5 mg tablet 05-08 00:00: 00 Yes mg Delfino Orta doxycycline hyclate 100 mg tablet 05-08 00:00: 00 Yes 1mg Delifno Orta fluconazole 150 mg tablet 05-08 00:00: [...] 04-02 00:00: 00 06-25 00:00 :00 No [id number] Delfino Orta TAKE 1 TABLET DAILY. 04-02 00:00: 06-25 00:00 :00 No 20 Delfino Orta naproxen (NAPROSYN) tablet 250 mg 03-20 23:00: 00 Yes 250mg 250 mg, Oral, BID MEALS, First dose on Sat03/20/23 at 1700, Until Discontinu ed, Routine [facility] albuterol sulfate HFA 90 mcg/actuati on aerosol inhaler 03-20 00:00: 00 Yes mcg/act uation Delfino Orta TAKE 1 TABLET BY MOUTH TWICE DAILY FOR 20 DOSES TAKE IN THE MORNINGS AND THE EVENINGS 03-20 00:00: 00 Yes Delfino Orta hydrocortis one 1%-nystatin -zinc oxide Oint ointment 03-20 00:00: 00 Yes [id number] Apply to affected area(s) as needed for Dermatitis /Rash. [facility] albuterol 90 mcg/actuati on inhaler 03-20 00:00: 00 Yes [id number] 2{puff} Inhale 2 Puffs every 6 (six) hours as needed for Wheezing or Shortness of Breath. [facility] naproxen 250 mg tablet 03-20 00:00: 00 03-31 05:59 :00 No [id number] 250mg Take 1 tablet by mouth in the morning and 1 tablet in the evening. Take with meals. Do all this for 20 doses. [facility] Qvar RediHaler 80 mcg/actuati on HFA breath activated aerosol 03-07 00:00: 00 Yes mcg/act uation Delfino Orta TAKE 1 TABLET DAILY. 03-07 00:00: 00 Yes 10 Delfino Orta TAKE 1 TABLET DAILY. 03-07 00:00: 00 Yes [id number] Delfino Orta TAKE 1 TABLET BY MOUTH [...] 11-01 00:00: 00 06-25 00:00 :00 No [id number] Delfino Orta TAKE 1 TO 2 TABLETS [...] mcg/actuati on inhaler 09-17 00:00: 00 Yes [id number] 2{puff} Inhale 2 Puffs every 4 (four) hours as needed for Wheezing or Shortness of Breath. [facility] IBUPROFEN 600MG 09-17 00:00: 00 06-25 00:00 :00 No Delfino Orta TAKE 1 TABLET DAILY. 09-12 00:00: 00 06-25 00:00 :00 No [id number] Delfino Orta TAKE 1 TABLET DAILY. 09-12 00:00: 00 06-25 00:00 :00 No 10 Delfino Orta 1-2 PUFFS Q 12 HOURS 8- 00:00: 00 06-25 00:00 :00 No 80 Delfinosurinder Orta TAKE 1 TABLET BY MOUTH DAILY 09-12 00:00: 00 06-25 00:00 :00 No 40 Delfino Endy Orta TAKE 1 TABLET DAILY. 09-12 00:00: 00 06-25 00:00 :00 No 10 Delfino Endy Orta INHALE 1 TO 2 PUFFS BY MOUTH EVERY 6 HOURS NEEDED. 09-12 00:00: 00 06-25 00:00 :00 No [id number] Delfino Endy Orta INHALE 2 PUFFS TWICE [...] Delfinosurinder Orta 1-2 PUFFS Q 12 HOURS 07-05 00:00: 00 06-25 00:00 :00 No 80 Delfino Endy Orta INHALE 1 TO 2 PUFFS BY MOUTH EVERY 6 HOURS NEEDED. 07-04 00:00: 00 06-25 00:00 :00 No [id number] Delfino Orta TAKE 1 TABLET DAILY. 07-04 00:00: 00 06-25 00:00 :00 No 10 Delfino Endy Orta TAKE 1 TABLET BY MOUTH DAILY 07-04 00:00: 00 06-25 00:00 :00 No 40 Delfino Endy Orta TAKE 1 TABLET AT BEDTIME. 07-04 00:00: 00 06-25 00:00 :00 No 45 Delfino F You INHALE 2 PUFFS TWICE DAILY. RINSE MOUTH AFTER USE. 07-04 00:00: 00 06-25 00:00 :00 No 220 Delfino Orta TAKE 1 TABLET DAILY. 07-04 00:00: 00 06-25 00:00 :00 No [id number] Delfino Orta TAKE 1 TABLET DAILY. 07-04 [...] :00 No Delfino Orta NITROFUR MON 100MG - 00:00: 00 06-25 00:00 :00 No Delfino Orta TAKE 1 TABLET DAILY. 04-19 00:00: 00 06-25 00:00 :00 No [id number] Delfino Orta TAKE 1 TABLET DAILY. 04-19 00:00: 00 06-25 00:00 :00 No 20 Delfino Orta AMLODIPINE BESYLATE 10 MG TABS 04-19 00:00: 00 06-25 00:00 :00 Eva Orta IBUPROFEN 600 MG TABS - 00:00: 00 06-25 00:00 :00 No Delfino Orta CHLORHEXIDI NE GLUCONATE 0.12 % SOLN 3- 00:00: 00 06-25 00:00 :00 No Delfino Orta bictegrav-e mtricit-ten ofov ala 50-200-25 mg tablet 2-21 00:00: 00 Yes [id number] 1{tbl} Take 1 tablet by mouth in the morning. [facility] fluconazole 200 mg tablet 04-03 00:00: 00 Yes [id number] 200mg Take 1 tablet by mouth in the morning. [facility] sulfamethox azole-trime thoprim 800-160 mg per tablet 04-03 00:00: 00 Yes [id number] 1{tbl} Take 1 tablet by mouth in the morning. [facility] sulfamethox azole 800 mg-trimetho prim 160 mg [...] 03-30 00:00: 00 06-25 00:00 :00 No [id number] Delfino Orta atorvastati n 40 mg tablet [...] 03-06 00:00: 00 06-25 00:00 :00 No [id number] Delfino Orta APPLY OINTMENT 3 TO 4 [...] COUGH 02-13 00:00: 00 06-25 00:00 :00 Eva Orta TAKE 1 TABLET DAILY. 2021-02 00:00: [...] 2021-02 00:00: 00 No FLUCONAZOLE 150MG TAB 2021-0214 00:00: 00 No AMOXICILLIN 875 MG TABS [...] Dose Unknown 2021-02 00:00: 00 No NYSTATIN [id number] ROOPA 2021-02 00:00: 00 No CITALOPRAM HYDROBROMID E 20MG TAB 2021-02 00:00: 00 No TAKE 1 TABLET DAILY. 2021-02 00:00: 00 06-25 00:00 :00 No Delfino Orta TAKE 1 TABLET AT BEDTIME. 2021-02 00:00: 00 06-25 00:00 :00 No Delfino Orta APPLY TO AFFECTED AREA ON SKIN TWICE A DAY FOR 5 DAYS 2021-02- 00:00: 00 06-25 00:00 :00 Eva Orta FLOVENT HFA 220MCG/A INH 2021-02 00:00: 00 06-25 00:00 :00 Eva Orta ATORVASTATI N CALCIUM 40 MG TABS 2021-02- 00:00: 00 06-25 00:00 :00 Eva Orta [...] CAPS 2021-02 00:00: 00 06-25 00:00 :00 Eva Orta Dose Unknown 2021-02 00:00: 00 06-25 00:00 :00 Eva Orta Dose Unknown 2021-02 00:00: 00 06-25 00:00 :00 Eva Orta Dose Unknown 2021-02 00:00: 00 06-25 00:00 :00 No Delfino Orta Dose Unknown 2021-02 00:00: 00 06-25 00:00 :00 Eva Orta TRAMADOL HCL 50 MG TABS 2021-02- 00:00: 00 06-25 00:00 :00 Eva Orta IBUPROFEN 400MG TAB 2021-02 00:00: 00 06-25 00:00 :00 No Delfino Orta TAKE 1 TABLET BY MOUTH TWICE A DAY FOR 7 DAYS 2021-02 00:00: 00 06-25 00:00 :00 No Delfino Orta TAKE 1 TABLET BY MOUTH ONCE DAILY - PRESCRIBER RIHCY GERARD 2021-02 00:00: 00 06-25 00:00 :00 [...] 06-25 00:00 :00 No Delfino Orta NYSTATIN [id number] ROOPA 2021-02 00:00: 00 06-25 00:00 :00 [...] No Delfino Orta TAKE 1 TABLET DAILY. - 00:00: 00 06-25 00:00 :00 No 10 Delfino Orta ALLOPURINOL 100 MG TABS 0 9-26 00:00: 00 06-25 00:00 :00 No Delfino [...] Orta cyclobenzap rine 5 mg tablet 0 08-07 00:00: 00 Yes 1mg Delfino Orta ibuprofen 400 mg tablet 0 08-07 00:00: 00 Yes 1mg Delfino Orta fluticasone propionate 50 mcg/actuati on nasal spray,suspe nsion 0 08-07 00:00: 00 Yes 1mcg/ac tuation Delfino Orta &lt 2021-0 08-07 00:00: 00 Yes Delfino Orta &lt 2021-0 08-07 00:00: 00 Yes Delfino Orta &lt 2021-0 08-07 00:00: 00 Yes Delfino Orta &lt 2-0 08-07 00:00: 00 Yes Delfino Orta Dose Unknown 0 08-07 00:00: 00 05 00:00 :00 No 400 Delfino Orta &lt 2022-0 08-04 00:00: 00 No &lt 2022-0 6-24 00:00: 00 No &lt 2022-0 624 00:00: 00 No &lt 2022-0 624 00:00: 00 Yes Delfino Orta mirtazapine 45 mg tablet 2021-0 08-02 00:00: 00 No 1mg TAKE 1 TABLET AT BEDTIME. 2021-0 08-02 00:00: 00 No mirtazapine 45 mg tablet 2021-0 08-02 00:00: 00 No 1mg mirtazapine 45 mg tablet 2021-0 08-02 00:00: 00 Yes 1mg Delfino Orta &lt 2021-0 617 00:00: 00 No &lt 2022-0 6-17 00:00: 00 No &lt 2022-0 617 00:00: 00 No &lt 2022-0 6-17 00:00: 00 No &lt 2022-0 6-17 00:00: 00 No &lt 2022-0 6-17 00:00: 00 No &lt 2022-0 6-17 00:00: 00 Yes Delfino Orta &lt 2-0 07-28 00:00: 00 Yes Delfino Orta imiquimod 3.75 % topical cream in a pump 07-03 00:00: 00 No 1% fluconazole 150 mg tablet 0 07-03 00:00: 00 No 1mg fluticasone propionate 50 mcg/actuati on nasal spray,suspe nsion 0 07-03 00:00: 00 No 1mcg/ac tuation Dose Unknown 0 07-03 00:00: 00 No fluconazole 150 mg tablet 0 07-03 00:00: 00 No 1mg fluticasone propionate 50 mcg/actuati on nasal spray,suspe nsion 0 07-03 00:00: 00 No 1mcg/ac tuation imiquimod [...] 07-03 00:00: 00 06-25 00:00 :00 No [id number] Delfino Orta sulfamethox azole-trime thoprim 800-160 mg per tablet 06-15 00:00: 00 04-03 00:00 :00 No [id number] 1{tbl} Take 1 tablet by mouth daily. [facility] ALPRAZOLAM ORAL 06-14 17:22: 53 Yes Take by mouth. [facility] efavirenz 600 mg tablet 06-14 00:00: 00 Yes [id number] 600mg Take 1 tablet by mouth daily. [facility] metoprolol tartrate 25 mg tablet 06-14 00:00: 00 Yes [id number] 12.5mg Take 0.5 tablets by mouth 2 (two) times daily. [facility] nystatin 100,000 unit/mL suspension 06-14 00:00: 00 Yes [id number] Take 5 mL by mouth 4 (four) times daily. [facility] amoxicillin -clavulanat e 875-125 mg per tablet 06-14 00:00: 00 04-03 00:00 :00 No [id number] 1{tbl} Take 1 tablet by mouth every 12 (twelve) hours. [facility] lamiVUDine 150 mg tablet 06-14 00:00: 00 04-03 00:00 :00 No [id number] 150mg Take 1 tablet by mouth 2 (two) times daily. [facility] ProAir HFA 90 mcg/actuati on aerosol inhaler [...] 05-22 00:00: 00 No 1mg Dose Unknown - 00:00: 00 No Dose Unknown - 00:00: 00 No Dose Unknown 05-22 00:00: 00 No Dose Unknown 4 00:00: 00 No Dose Unknown 4- 00:00: 00 No fluticasone propionate 50 mcg/actuati [...] 1mg Delfino Orta loratadine 10 mg tablet 4- 00:00: 00 Yes 1mg Delfino Orta allopurinol 100 mg tablet 4- 00:00: 00 Yes 1mg Delfino Orta cyclobenzap rine 5 mg tablet 2022-0 4-11 00:00: 00 Yes 1mg Delfino Orta mirtazapine 45 mg tablet 2021-0 4-11 00:00: 00 Yes 1mg Delfino Orta fluticasone propionate 50 mcg/actuati on nasal spray,suspe nsion 2021-0 4-11 00:00: 00 Yes 1mcg/ac tuation Delfino Orta TRIAMCINOLO NE ACETONIDE 0.1% CRE 2021-0 4- 00:00: 00 15 00:00 :00 No 100 Delfino Orta Dose Unknown 2021-0 3-23 00:00: 00 No Dose Unknown 2-0 3-23 00:00: 00 No Dose Unknown 2022-0 3-23 00:00: 00 No Dose Unknown 2022-0 3-23 00:00: 00 No Dose Unknown 2022-0 3-23 00:00: 00 No Dose Unknown 2022-0 3-23 00:00: 00 No Dose Unknown 2-0 3-23 00:00: 00 No Dose Unknown 2022-0 3-23 00:00: 00 No Dose Unknown 2022-0 3-23 00:00: 00 No Dose Unknown 2022-0 3-23 00:00: 00 Yes Delfino Orta Dose Unknown 2021-0 3-23 00:00: 00 Yes Delfino Orta Dose Unknown 2-0 3-23 00:00: 00 Yes Delfino Orta FLOVENT HFA 220MCG/A INH 2021-0 3-23 00:00: 00 06-25 00:00 :00 No [id number] Delfino Orta Dose Unknown 2-0 3-21 00:00: 00 No Dose Unknown 2022-0 3-21 00:00: 00 No Dose Unknown 2022-0 3-21 00:00: 00 No Dose Unknown 2022-0 3-21 00:00: 00 Yes Delfino Orta Dose Unknown 2022-0 3-20 00:00: 00 No Dose Unknown 2022-0 3-20 00:00: 00 No Dose Unknown 2022-0 3-20 00:00: 00 No Dose Unknown 2022-0 3-20 00:00: 00 Yes Delfino Orta Dose Unknown 2022-0 3-16 00:00: 00 No Dose Unknown 2022-0 3-16 00:00: 00 No Dose Unknown 2021-0 [...] 00 Yes Delfino Orta Dose Unknown 0 1- 00:00: 00 No fluticasone propionate 50 mcg/actuati on nasal spray,suspe nsion 2021-0 - 00:00: 00 No 1mcg/ac tuation Dose Unknown 0 1 00:00: 00 No fluticasone propionate 50 mcg/actuati on nasal spray,suspe nsion 2021-0 03-08 00:00: 00 No 1mcg/ac tuation Dose Unknown 0 03-08 00:00: 00 No fluticasone propionate 50 mcg/actuati on nasal spray,suspe nsion 2021-0 03-08 00:00: 00 No 1mcg/ac tuation Dose Unknown 0 - 00:00: 00 Yes Delfino Orta fluticasone propionate 50 mcg/actuati on nasal spray,suspe nsion 0 03-08 00:00: 00 Yes 1mcg/ac tuation Delfino Orta [...] Yes 1mg Delfino Orta Dose Unknown 2020-02 2 00:00: [...] Delfino Orta tizanidine 4 mg tablet 2020-02 2- 00:00: 00 Yes 1mg Delfino Endy Orta fluticasone propionate 50 mcg/actuati on nasal spray,suspe nsion 2020-02 2-07 00:00: 00 Yes 1mcg/ac tuation Delfino Orta [...] 100 mg tablet 09-30 00:00: 00 Yes [id number] 100mg Take 1 tablet by mouth daily. [facility] Flovent HFA 220 mcg/actuati on aerosol inhaler [...] 12mg Delfino Orta mirtazapine 45 mg tablet 8 00:00: 00 Yes 1mg Delfino Orta ferrous sulfate 325 mg (65 mg iron) tablet,ruchi yed release 09-17 00:00: 00 Yes 1(65 mg iron) Delfino Orta fluticasone propionate 50 mcg/actuati on nasal spray,suspe nsion 8 00:00: 00 Yes 1mcg/ac tuation Delfino [...] inhaler 08-25 00:00: 00 Yes 1mcg/ac tuation Delifno Orta losartan 100 mg tablet 08-25 00:00: [...] 10 mg tablet 08-12 00:00: 00 Yes [id number] 10mg Take 1 tablet by mouth daily. [facility] atorvastati n 40 mg tablet 08-12 00:00: 00 Yes [id number] 40mg Take 1 tablet by mouth at bedtime. [facility] fluticasone propionate 50 mcg/actuati on nasal spray 07-20 00:00: 00 Yes [id number] 2{spray } Use 2 Sprays in each nostril daily. [facility] fluticasone propionate (FLOVENT HFA) 220 mcg/actuati on inhaler 07-20 00:00: 00 Yes [id number] 2{puff} Inhale 2 Puffs every 12 (twelve) hours. [facility] albuterol 90 mcg/actuati on inhaler 07-20 00:00: 00 03-20 00:00 :00 No [id number] 2{puff} Inhale 2 Puffs every 4 (four) hours as needed for Wheezing or Shortness of Breath. [facility] ibuprofen 800 mg tablet 07-19 00:00: 00 No 1mg ibuprofen 800 mg tablet 07-19 00:00: 00 No 1mg ibuprofen 800 mg tablet 07-19 00:00: 00 No 1mg ibuprofen 800 mg tablet 07-19 00:00: 00 Yes 1mg Delfino Endy Orta ProAir HFA 90 mcg/actuati on aerosol [...] Delfino Orta Voltaren 1 % topical gel 04-22 00:00: 00 No 1% mirtazapine 45 mg tablet 04-22 00:00: 00 No 1mg Tessalon Perles 100 mg capsule 04-22 00:00: 00 No 12mg Voltaren 1 % topical gel 0 04-22 00:00: 00 No 1% mirtazapine 45 mg tablet 0 - 00:00: 00 No 1mg Tessalon Perles 100 mg capsule 0 - 00:00: 00 No 12mg Voltaren 1 % topical gel 0 04-22 00:00: 00 No 1% mirtazapine 45 mg tablet 0 - 00:00: 00 No 1mg Tessalon Perles 100 mg capsule 0 - 00:00: 00 No 12mg Voltaren 1 % topical gel 0 - 00:00: 00 Yes 1% Delfino Orta mirtazapine 45 mg tablet 04-22 00:00: 00 Yes 1mg Delfino Orta Tessalon Perles 100 mg capsule 04-22 00:00: 00 Yes 12mg Delfino Orta fluticasone propionate 50 mcg/actuati on nasal spray,suspleobardo nsion 1- 00:00: 00 No 1mcg/ac tuation [...] 1mg Delfino Orta loratadine 10 mg tablet 2020-1 0-23 00:00: 00 Yes 1mg Delfino Orta Epzicom 600 mg-300 mg tablet 0 9-25 00:00: 00 No 1mg Epzicom 600 mg-300 mg tablet 0 9-25 00:00: 00 No 1mg Epzicom 600 mg-300 mg tablet 0 9- 00:00: 00 No 1mg Epzicom 600 mg-300 mg tablet 0 9- 00:00: 00 Yes 1mg Delfino Orta ProAir HFA 90 mcg/actuati on aerosol inhaler 0 - 00:00: 00 No 1mcg/ac tuation nystatin-tr iamcinolone 100,000 unit/g-0.1 % topical cream - 00:00: 00 No 1unit/g -% amlodipine 10 mg tablet - 00:00: 00 No 1mg ibuprofen 800 mg tablet 8- 00:00: 00 No 1mg losartan 100 mg tablet - 00:00: 00 No 1mg loratadine 10 mg tablet 0 - 00:00: 00 No 1mg Epzicom 600 mg-300 mg tablet - 00:00: 00 No 1mg ProAir HFA 90 mcg/actuati on aerosol inhaler - 00:00: 00 No 1mcg/ac tuation nystatin-tr iamcinolone 100,000 unit/g-0.1 % topical cream - 00:00: 00 No 1unit/g -% amlodipine 10 mg tablet - 00:00: 00 No 1mg ibuprofen 800 mg tablet - 00:00: 00 No 1mg losartan 100 mg tablet - 00:00: 00 No 1mg loratadine 10 mg tablet - 00:00: 00 No 1mg Epzicom 600 mg-300 mg tablet - 00:00: 00 No 1mg ProAir HFA 90 mcg/actuati on aerosol inhaler 0 8- 00:00: 00 No 1mcg/ac tuation nystatin-tr iamcinolone [...] 1mg Epzicom 600 mg-300 mg tablet 0 06-23 00:00: 00 No 1mg loratadine 10 mg tablet 0 06-23 00:00: 00 No 1mg ibuprofen 800 mg tablet 0 06-23 00:00: 00 No 1mg amlodipine 10 mg tablet 0 06-23 00:00: 00 No 1mg mirtazapine 45 [...] Delfino Orta ibuprofen 800 mg tablet 0 05-20 00:00: 00 No 1mg ibuprofen 800 mg tablet 0 - 00:00: 00 No 1mg ibuprofen 800 mg tablet 0 - 00:00: 00 No 1mg ibuprofen 800 [...] mg tablet 2 00:00: 00 No 1mg metronidazo le 500 [...] 150 mg tablet 2019-0 2-18 00:00: 00 Yes 1mg Delfino Orta [...] mg tablet - 00:00: 00 No 1mg montelukast 10 mg [...] 02-18 00:00: 00 Yes 2mcg/ac tuation Delfino Endy Orta allopurinol 100 mg tablet 02-18 00:00: 00 Yes 1mg Delfino Orta losartan 100 mg tablet 02-18 00:00: 00 Yes 1mg Delfino Endy Orta amlodipine 10 mg tablet - 00:00: [...] tuation fluticasone propionate 50 mcg/actuati on nasal spray,rabiae nsion 2018-02 00:00: 00 Yes 1mcg/ac tuation Delfino Orta Flovent HFA 220 mcg/actuati on aerosol inhaler 2018-02 0-24 00:00: 00 No 2mcg/ac tuation Flovent HFA [...] 021 00:00: 00 Yes 1mg Delfino Orta Flovent [...] on aerosol inhaler 2018-0216 00:00: 00 Yes 2mcg/ac tuation Delfino Orta [...] 0.12 % mouthwash 2018-02 00:00: 00 Yes [id number] 15mL Swish and spit out 15 mL 2 (two) times daily. [facility] chlorhexidi ne (PERIDEX) 0.12 % mouthwash 2018-02 00:00: 00 Yes [id number] 15mL Swish and spit out 15 mL 2 (two) times daily. [facility] allopurinol 100 mg tablet 11-03 00:00: 00 [...] inhaler 10-14 00:00: 00 Yes 1mcg/ac tuation Delifno F You loratadine 10 mg tablet 10-14 00:00: 00 Yes 1mg Delfino F You cyclobenzap rine 10 mg tablet 10-14 00:00: 00 Yes 1mg Delfino F You fluticasone propionate 50 mcg/actuati on nasal spray,suspe nsion 10-14 00:00: 00 Yes 1mcg/ac tuation Delfino F You benzonatate 100 mg capsule 10-02 00:00: 00 [...] 09-08 00:00: 00 Yes 1mg Delfino Orta nystatin 100,000 unit/mL oral suspension 08-20 00:00: 00 No 10unit/ mL nystatin 100,000 unit/mL oral suspension 08-20 00:00: 00 No 10unit/ mL nystatin 100,000 unit/mL oral suspension 08-20 00:00: 00 No 10unit/ mL nystatin 100,000 unit/mL oral suspension 08-20 00:00: 00 Yes 10unit/ mL Delfino Orta amlodipine 10 mg tablet 07-23 [...] 06-18 00:00: 00 Yes 1mg Delfino Orta allopurinol 100 mg tablet 05-21 00:00: 00 No 1mg allopurinol 100 mg tablet 05-21 00:00: 00 No 1mg allopurinol 100 mg tablet 05-21 00:00: 00 No 1mg allopurinol 100 mg tablet 05-21 00:00: 00 Yes 1mg Delfino Orta Flovent [...] 05-20 00:00: 00 Yes 2mcg/ac tuation Delfino F You ProAir HFA 90 mcg/actuati on aerosol inhaler 05-20 00:00: 00 Yes 1mcg/ac tuation Delfino F You amlodipine 10 mg tablet 05-20 00:00: 00 [...] 05-01 00:00: 00 Yes 1mg Delfino Orta amlodipine 10 mg tablet 04-22 00:00: 00 No 1mg amlodipine 10 mg tablet 04-22 00:00: 00 No 1mg amlodipine 10 mg tablet 04-22 00:00: 00 No 1mg amlodipine 10 mg tablet 04-22 00:00: 00 Yes 1mg Delfino Orta Flovent HFA 220 mcg/actuati on aerosol inhaler 2017-02 0 00:00: 00 No 2mcg/ac tuation ProAir HFA 90 mcg/actuati on aerosol inhaler 2017-02 0 00:00: 00 No 1mcg/ac tuation citalopram 20 mg tablet 2017-02 0 00:00: 00 No 1mg Keflex 500 mg capsule 2017-02 003 00:00: 00 No 1mg nystatin 100,000 unit/mL oral suspension 2017-02 0 00:00: 00 No 5unit/m L Flovent HFA 220 mcg/actuati on aerosol inhaler 2017-02 003 00:00: 00 No 2mcg/ac tuation ProAir HFA 90 mcg/actuati on aerosol inhaler 2017-02 003 00:00: 00 No 1mcg/ac tuation citalopram 20 mg tablet 2017-02 003 00:00: 00 No 1mg Keflex 500 mg capsule 2017-02 0-03 00:00: 00 No 1mg nystatin 100,000 unit/mL oral suspension 2017-02 0- 00:00: 00 No 5unit/m L Flovent HFA [...] mcg/actuati on aerosol inhaler 2017-02 00:00: 00 Yes 1mcg/ac tuation Delfino Orta citalopram 20 mg tablet 2017-02 0 00:00: 00 Yes 1mg Delfino Orta Keflex 500 mg capsule 2017-02 00:00: 00 Yes 1mg Delfino Orta nystatin 100,000 unit/mL oral suspension 2017-02 00:00: 00 Yes 5unit/m Vincenzo Orta triamcinolo ne acetonide 0.1 % topical cream 11-05 00:00: 00 No 1% triamcinolo ne acetonide 0.1 % topical cream 11-05 00:00: 00 No 1% triamcinolo ne acetonide 0.1 % topical cream 11-05 00:00: 00 No 1% triamcinolo ne acetonide 0.1 % topical cream 11-05 00:00: 00 Yes 1% Delfino Orta amlodipine 10 mg tablet 11-01 00:00: 00 No 1mg amlodipine 10 mg tablet 11-01 00:00: 00 No 1mg amlodipine 10 mg tablet 11-01 00:00: 00 No 1mg amlodipine 10 mg tablet 11-01 00:00: 00 Yes 1mg Delfino Orta Flovent [...] 09-10 00:00: 00 Yes 1mg Delfino Orta Tessalon Perles 100 mg capsule 08-30 00:00: 00 No 1mg Tessalon Perles 100 mg capsule 08-30 00:00: 00 No 1mg Tessalon Perles 100 mg capsule 08-30 00:00: 00 No 1mg Tessalon Perles 100 mg capsule 08-30 00:00: 00 Yes 1mg Delfino Orta hydrocortis [...] 08-27 00:00: 00 Yes 1mg Delfino Orta Flovent [...] 07-25 00:00: 00 Yes 1mg Delfino Orta loratadine 10 mg tablet 07-09 00:00: 00 No 1mg loratadine 10 mg tablet 07-09 00:00: 00 No 1mg loratadine 10 mg tablet 07-09 00:00: 00 No 1mg loratadine 10 mg tablet 07-09 00:00: 00 Yes 1mg Delfino Orta naproxen 500 mg tablet 06-26 00:00: 00 No 1mg naproxen 500 mg tablet 06-26 00:00: 00 No 1mg naproxen 500 mg tablet 06-26 00:00: 00 No 1mg naproxen 500 mg tablet 06-26 00:00: 00 Yes 1mg Delfino Orta permethrin 5 % topical cream [...] 00:00: 00 Yes 5mg/5 mL Delfino Orta amlodipine 10 mg tablet 04-04 [...] 04-04 00:00: 00 Yes 1mg Delfino Orta amitriptyli ne 100 mg tablet 03-04 00:00: 00 No 1mg amitriptyli ne 100 mg tablet 03-04 00:00: 00 No 1mg amitriptyli ne 100 mg tablet 03-04 00:00: 00 No 1mg amitriptyli ne 100 mg tablet 03-04 00:00: 00 Yes 1mg Delfino Orta allopurinol 300 mg tablet 02-19 [...] 02-19 00:00: 00 Yes mg Delfino Orta gabapentin 300 mg capsule 02-18 00:00: 00 No 1mg gabapentin 300 mg capsule 02-18 00:00: 00 No 1mg gabapentin 300 mg capsule 02-18 00:00: 00 No 1mg gabapentin 300 mg capsule 02-18 00:00: 00 Yes 1mg Delfino Orta Symbicort [...] 2016-02 00:00: 00 Yes 1mg Delfino Orta loratadine 10 mg tablet 2016-02 [...] 00:00: 00 Yes 10mg/5 mL Delfino Orta Epzicom 600 mg-300 mg tablet [...] 11-07 00:00: 00 Yes 1mg Delfino Orta amlodipine 10 mg tablet 10-23 00:00: 00 No 1mg amlodipine 10 mg tablet 10-23 00:00: 00 No 1mg amlodipine 10 mg tablet 10-23 00:00: 00 No 1mg amlodipine 10 mg tablet 10-23 00:00: 00 Yes 1mg Delfino Orta prednisone [...] 08-21 00:00: 00 Yes 1mg Delfino Orta ibuprofen 800 mg tablet 08-20 00:00: 00 No 1mg ibuprofen 800 mg tablet 08-20 00:00: 00 No 1mg ibuprofen 800 mg tablet 08-20 00:00: 00 No 1mg ibuprofen 800 mg tablet 08-20 00:00: 00 Yes 1mg Delfino Orta Symbicort [...] 06-04 00:00: 00 Yes 1mg Delfino Orta Cetirizine (ZYRTEC) 10 mg capsule 2014-02 00:00: 00 Yes 10mg Take 1 Cap by mouth at bedtime. [facility] Flovent HFA 220 MCG/ACT Flovent HFA 220 MCG/ACT No 1{puff} BID Flovent HFA 220 MCG/ACT Cetirizine HCl 10 MG Cetirizine HCl 10 [...] Arexvy 0.5ML 2023-09-25 00:00:00 Completed Delfino Orta Influenza Virus Vaccine 2023-07-02 00:00:00 Completed [facility] TDAP 2023-07-02 00:00:00 Completed [facility] Evusheld (Cilgavimab) 2023-07-02 00:00:00 Completed [facility] Evusheld (Tixagevimab) 2023-07-02 00:00:00 Completed [facility] Influenza Virus Vaccine 2023-05-21 00:00:00 Completed [facility] TDAP 2023-05-21 00:00:00 Completed [facility] Evusheld (Cilgavimab) 2023-05-21 00:00:00 Completed [facility] Evusheld (Tixagevimab) 2023-05-21 00:00:00 Completed [facility] Influenza Virus Vaccine 2023-05-16 12:13:00 Completed [facility] TDAP 2023-05-16 12:13:00 Completed [facility] Evusheld (Cilgavimab) 2023-05-16 12:13:00 Completed [facility] Evusheld (Tixagevimab) 2023-05-16 12:13:00 Completed [facility] Influenza Virus Vaccine 2023-03-20 10:44:00 Completed [facility] TDAP 2023-03-20 10:44:00 Completed [facility] Evusheld (Cilgavimab) 2023-03-20 10:44:00 Completed [facility] Evusheld (Tixagevimab) 2023-03-20 10:44:00 Completed [facility] Hep A-Hep B Hep A-Hep B 2022-09-24 00:00:00 Completed Delfino Orta influenza, injectable influenza, injectable 2022-09-24 00:00:00 Completed Delfino Orta SHINGRIX VACCINE SHINGRIX VACCINE 2022-09-24 00:00:00 Completed Delfino Orta Hep A-Hep B Hep A-Hep B 2022-09-24 00:00:00 Completed Delfino Orta influenza, injectable influenza, injectable 2022-09-24 00:00:00 Completed Delfino Orta SHINGRIX VACCINE SHINGRIX VACCINE 2022-09-24 00:00:00 Completed Delfino Orta Evusheld (Cilgavimab) 2021-06-13 00:00:00 Completed [facility] Evusheld (Tixagevimab) 2021-06-13 00:00:00 Completed [facility] Evusheld (Cilgavimab) 2021-06-13 00:00:00 Completed [facility] Evusheld (Tixagevimab) 2021-06-13 00:00:00 Completed [facility] Evusheld (Cilgavimab) 2021-06-13 00:00:00 Completed [facility] Evusheld (Tixagevimab) 2021-06-13 00:00:00 Completed [facility] Evusheld (Cilgavimab) 2021-06-13 00:00:00 Completed [facility] Evusheld (Tixagevimab) 2021-06-13 00:00:00 Completed [facility] Evusheld (Cilgavimab) 2021-06-13 00:00:00 Completed [facility] Evusheld (Tixagevimab) 2021-06-13 00:00:00 Completed [facility] Evusheld (Cilgavimab) 2021-06-13 00:00:00 Completed [facility] Evusheld (Tixagevimab) 2021-06-13 00:00:00 Completed [facility] Evusheld (Cilgavimab) 2021-06-13 00:00:00 Completed [facility] Evusheld (Tixagevimab) 2021-06-13 00:00:00 Completed [facility] 2021-06-13 00:00:00 Completed [facility] Evusheld (Tixagevimab) 2021-06-13 00:00:00 Completed [facility] Evusheld (Cilgavimab) 2021-06-13 00:00:00 Completed [facility] Evusheld (Tixagevimab) 2021-06-13 00:00:00 Completed [facility]il[facility] 2021-06-13 00:00:00 Completed [facility] Evusheld (Tixagevimab) 2021-06-13 00:00:00 Completed [facility] 2021-06-13 00:00:00 Completed [facility] Evusheld (Tixagevimab) 2021-06-13 00:00:00 Completed Moderna COVID-19 Vaccine Moderna COVID-19 Vaccine 2021-02-20 00:00:00 Completed Delfino Orta Moderna COVID-19 Vaccine Moderna COVID-19 Vaccine 2021-02-20 00:00:00 Completed Delfino Orta Moderna COVID-19 Vaccine Moderna COVID-19 Vaccine 2020-05-03 00:00:00 Completed Delfino Orta Moderna COVID-19 Vaccine Moderna COVID-19 Vaccine 2020-05-03 00:00:00 Olaf Schumacher You Moderna COVID-19 Vaccine Moderna COVID-19 Vaccine 2020-04-05 00:00:00 Completed Delfino Orta Moderna COVID-19 Vaccine Moderna COVID-19 Vaccine 2020-04-05 00:00:00 Completed Delfino Orta TDAP 2014-08-19 00:00:00 Completed [facility] TDAP 2014-08-19 00:00:00 Completed [facility] TDAP 2014-08-19 00:00:00 Completed [facility] TDAP 2014-08-19 00:00:00 Completed [facility] TDAP 2014-08-19 00:00:00 Completed [facility] TDAP 2014-08-19 00:00:00 Completed [facility] TDAP 2014-08-19 00:00:00 Completed [facility] TDAP 2014-08-19 00:00:00 Completed [facility] TDAP 2014-08-19 00:00:00 Completed [facility] TDAP 2014-08-19 00:00:00 Completed [facility] TDAP 2014-08-19 00:00:00 Completed [facility] Influenza Virus Vaccine 2012-01-21 00:00:00 Completed [facility] Influenza Virus Vaccine 2012-01-21 00:00:00 Completed [facility] Influenza Virus Vaccine 2012-01-21 00:00:00 Completed [facility] Influenza Virus Vaccine 2012-01-21 00:00:00 Completed [facility] Influenza Virus Vaccine 2012-01-21 00:00:00 Completed [facility] Influenza Virus Vaccine 2012-01-21 00:00:00 Completed [facility] Influenza Virus Vaccine 2012-01-21 00:00:00 Completed [facility] Influenza Virus Vaccine 2012-01-21 00:00:00 Completed [facility] Influenza Virus Vaccine 2012-01-21 00:00:00 Completed [facility] Influenza Virus Vaccine 2012-01-21 00:00:00 Completed [facility] Influenza Virus Vaccine 2012-01-21 00:00:00 Completed [facility] Vital Signs Vital Name Observation Time Observation Value Comments S ource height 2023-11-11 15:00:00 62.5 [in_i] Comm on [facility] weight 2023-11-11 15:00:00 118.2 [lb_av] Co mmon [facility] temperature 2023-11-11 15:00:00 97.8 [degF] Com mon [facility] bmi 2023-11-11 15:00:00 21.27 kg/m2 Comm on [facility] oximetry 2023-11-11 15:00:00 93 % Commo n [facility] respiratory rate 2023-11-11 15:00:00 18 /min Common [facility] blood pressure systolic 2023-11-11 15:00:00 114 mm[Hg] [facility] blood pressure diastolic 2023-11-11 15:00:00 68 mm[Hg] [facility] Respiratory rate 2023-05-20 20:47:00 16 /min [facility] Oxygen saturation in Arterial blood by Pulse oximetry 2023-05-20 20:47:00 97 /min [facility] Systolic blood pressure 2023-05-20 16:21:00 136 mm[Hg] [facility] Diastolic blood pressure 2023-05-20 16:21:00 81 mm[Hg] [facility] Heart rate 2023-05-20 16:21:00 81 /min [facility] Body temperature 2023-05-20 16:21:00 36.17 [place] [facility] Body weight 2023-05-20 08:12:00 57.063 kg [facility] BMI 2023-05-20 08:12:00 22.28 kg/m2 [facility] Body height 2023-05-16 20:58:00 160 cm [facility] Systolic blood pressure 2023-03-20 16:43:00 154 mm[Hg] [facility] Diastolic blood pressure 2023-03-20 16:43:00 87 mm[Hg] [facility] Heart rate 2023-03-20 16:43:00 77 /min Unive [facility] Body temperature 2023-03-20 16:43:00 36.39 Roma [facility] Respiratory rate 2023-03-20 16:43:00 16 /min [facility] Body height 2023-03-20 16:43:00 160 cm [facility] Body weight 2023-03-20 16:43:00 51.71 kg [facility] BMI 2023-03-20 16:43:00 20.19 kg/m2 [facility] Oxygen saturation in Arterial blood by Pulse oximetry 2023-03-20 16:43:00 100 /min [facility] Systolic blood pressure 2022-09-17 19:28:58 166 mm[Hg] [facility] Diastolic blood pressure 2022-09-17 19:28:58 103 mm[Hg] [facility] Heart rate 2022-09-17 19:28:58 78 /min Unive [facility] Body temperature 2022-09-17 19:28:58 37.06 Roma [facility] Respiratory rate 2022-09-17 19:28:58 18 /min [facility] Oxygen saturation in Arterial blood by Pulse oximetry 2022-09-17 19:28:58 98 /min [facility] Body height 2022-09-17 16:43:00 160 cm [facility] Body weight 2022-09-17 16:43:00 51.71 kg [facility] BMI 2022-09-17 16:43:00 20.19 kg/m2 [facility] Systolic blood pressure 2022-04-03 19:20:00 106 mm[Hg] [facility] Diastolic blood pressure 2022-04-03 19:20:00 72 mm[Hg] [facility] Heart rate 2022-04-03 19:20:00 104 /min Unive [facility] Body temperature 2022-04-03 19:20:00 36.22 Roma [facility] Respiratory rate 2022-04-03 19:20:00 18 /min [facility] Body height 2022-04-03 19:20:00 162.6 cm [facility] Body weight 2022-04-03 19:20:00 46.72 kg [facility] BMI 2022-04-03 19:20:00 17.68 kg/m2 [facility] Oxygen saturation in Arterial blood by Pulse oximetry 2022-04-03 19:20:00 89 /min [facility] Systolic blood pressure 2021-07-18 20:42:00 174 mm[Hg] [facility] Diastolic blood pressure 2021-07-18 20:42:00 98 mm[Hg] [facility] Heart rate 2021-07-18 20:42:00 104 /min [facility] Body temperature 2021-07-18 20:42:00 35.72 Roma [facility] Body height 2021-07-18 20:42:00 160 cm [facility] Body weight 2021-07-18 20:42:00 56.246 kg [facility] BMI 2021-07-18 20:42:00 21.97 kg/m2 [facility] BP Systolic 2024-05-27 08:36:00 136 mm[Hg] Step hen F Bailey BP Diastolic 2024-05-27 08:36:00 86 mm[Hg] Samm phen F Bailey Weight Measured 2024-05-27 08:36:00 125.60 pounds Delfino F You Height Measured 2024-05-27 08:36:00 63.00 inches Delfino F Bailey Body Temperature 2024-05-27 08:36:00 97.80 degrees Delfino F You Heart Rate 2024-05-27 08:36:00 61.00 /min Araceli en F You Respiratory Rate 2024-05-27 08:36:00 18.00 /min Delfino F You BP Systolic 2024-05-13 14:33:00 96 mm[Hg] Step hen F You BP Diastolic 2024-05-13 14:33:00 59 mm[Hg] Samm phen F You Weight Measured 2024-05-13 14:33:00 122.00 pounds Delfino F You Height Measured 2024-05-13 14:33:00 63.00 inches Delfino F You Body Temperature 2024-05-13 14:33:00 97.40 degrees Delfino F You Heart Rate 2024-05-13 14:33:00 69.00 /min Araceli en F You Respiratory Rate 2024-05-13 14:33:00 18.00 /min Delfino F You BP Systolic 2024-05-07 10:48:00 149 mm[Hg] Step hen F You BP Diastolic 2024-05-07 10:48:00 82 mm[Hg] Samm phen F You Weight Measured 2024-05-07 10:48:00 122.40 pounds Delfino F You Height Measured 2024-05-07 10:48:00 63.00 inches Delfino F You Body Temperature 2024-05-07 10:48:00 97.60 degrees Delfino F You Heart Rate 2024-05-07 10:48:00 92.00 /min Araceli en F You Respiratory Rate 2024-05-07 10:48:00 Delfino F You BP Systolic 2024-05-05 10:13:00 132 mm[Hg] Step hen F You BP Diastolic 2024-05-05 10:13:00 82 mm[Hg] Samm phen F You Weight Measured 2024-05-05 10:13:00 123.00 pounds Delfino F You Height Measured 2024-05-05 10:13:00 63.00 inches Delfino F You Body Temperature 2024-05-05 10:13:00 97.60 degrees Delfino F You Heart Rate 2024-05-05 10:13:00 85.00 /min Araceli en F You Respiratory Rate 2024-05-05 10:13:00 16.00 /min Delfino F You BP Systolic 2024-04-09 09:13:00 130 mm[Hg] Step [...] Rate 2024-01-13 09:16:00 16.00 /min Delfino F Yuo BP Systolic 2024-01-01 11:06:00 100 mm[Hg] Step [...] Diastolic 2022-10-04 11:32:00 77 mm[Hg] Samm phen Endy Orta Weight Measured 2022-10-04 11:32:00 120.00 pounds Delfino Orta Height Measured 2022-10-04 11:32:00 63.00 inches Delfino Orta Body Temperature 2022-10-04 11:32:00 98.40 degrees Delfino Orta Heart Rate 2022-10-04 11:32:00 91.00 /min Araceli en F Yuo Respiratory Rate 2022-10-04 11:32:00 19.00 /min Delfinosurinder Orta BP Systolic 2022-09-12 09:10:00 130 mm[Hg] Step hen F You BP Diastolic 2022-09-12 09:10:00 79 mm[Hg] Samm phen Endy Orta Weight Measured 2022-09-12 09:10:00 118.80 pounds Delfino Orta Height Measured 2022-09-12 09:10:00 63.00 inches Delfino Orta Body Temperature 2022-09-12 09:10:00 98.10 degrees Delfino Orta Heart Rate 2022-09-12 09:10:00 87.00 /min Araceli en F You Respiratory Rate 2022-09-12 09:10:00 18.00 /min Delfinosurinder Orta BP Systolic 2022-02-28 11:50:00 122 mm[Hg] [...] Source REFERRAL- REQUEST/RESPONSE 2023-06-26 15:45:25 Doctor Unassigned, [place] [facility] BASIC METABOLIC PANEL (NA, K, CL, CO2, GLUCOSE, BUN, CREATININE, CA) 2023-05-20 08:28:00 Dawn Eddy [facility] CBC WITH DIFF 2023-05-20 08:28:00 Dawn Eddy [facility] TROPONIN I 2023-05-19 10:21:00 Daniel Arreaga [facility] BASIC METABOLIC PANEL (NA, K, CL, CO2, GLUCOSE, BUN, CREATININE, CA) 2023-05-19 10:21:00 [facility] LIPID [facility]EL (15545)(TOTAL CHOLESTEROL, TRIGLYCERIDES, HDL) 2023-05-19 10:21:00 James Stacy [facility] CD4 SUBSET ASSAY 2023-05-19 10:21:00 Daniel Arreaga [facility] UREA NITROGEN URINE 2023-05-18 08:30:00 Lefty Abreu [facility] COMP. METABOLIC PANEL (15807) 2023-05-17 18:43:00 [facility]FF 2023-05-17 18:43[facility]00 [facility]IC 2023-05-17 14:17:00 Essence Abreu [facility] SODIUM, URINE RANDOM 2023-05-17 14:16:00 Brady Lefty [facility] PROTEIN CREAT RATIO URINE RANDOM 2023-05-17 14:16:00 [facility] TROPONIN I 2023-05-17 13:54:00 Lefty Abreu [facility] TRANSTHORACIC ECHO (TTE) COMPLETE 2023-05-17 12:45:00 Kvng Roberson [facility] CREATININE 2023-05-17 03:28:00 Lefty Abreu [facility] TROPONIN I 2023-05-16 21:13:00 Kvng Roberson [facility] ACUTE CARE VENOUS BLOOD GAS 2023-05-16 18:21:00 Anyi Munguia [facility] XR CHEST 1 VW 2023-05-16 18:00:09 Anyi Munguia [facility] LIPASE 2023-05-16 17:40:[address] [facility] TROPONIN I 2023-05-16 17:40:00 Anyi Munguia [facility] COMP. METABOLIC PANEL (35501) 2023-05-16 17:40:00 Anyi Munguia [facility] CBC WITH DIFF 2023-05-16 17:40:00 Anyi Munguia [facility] HB ECG ROUTINE & RHYTHM STRIP 2023-05-16 17:21:17 Anyi Munguia [facility] ASSIGNMENT OF BENEFITS 2023-03-20 17:45:01 Docto r Unassigned, [place] [facility] CONSENT/REFUSAL FOR DIAGNOSIS AND TREATMENT 2023-03-20 16:29:12 Doctor Unassigned, [place] [facility] XR SPINE THORACIC 2 VW 2022-09-17 18:21:00 Vannesa Hobbs [facility] CONSENT/REFUSAL FOR DIAGNOSIS AND TREATMENT 2022-09-17 16:35:17 Doctor Unassigned, [place] [facility] REFERRAL- REQUEST/RESPONSE 2022-06-05 05:01:00 Doctor Unassigned, [place] [facility] HSV 1&2, VZV NAAT 2022-04-03 20:43:00 Guerline Garcia [facility] REFERRAL- REQUEST/RESPONSE 2022-01-19 06:01:00 Doctor Unassigned, [place] [facility] [address] Ecg Routine Ecg W/least 12 Lds W/i r 2016-10-23 00:00:00 Delfino Orta Plan of Care Planned Activity Planned Date Details Comments Source Goal Plan of Care Note [code = 77374-0] Goal Plan of Care Note [code = 58879-3] Goal Plan of Care Note [code = 60987-3] Goal Plan of Care Note [code = 52663-6] Goal Plan of Care Note [code = 41530-6] Goal Plan of Care Note [code = 65357-7] Goal Plan of Care Note [code = 03877-4] Goal Plan of Care Note [code = 89035-2] Goal Plan of Care Note [code = 90172-5] Goal Plan of Care Note [code = 39018-6] Goal Plan of Care Note [code = 61060-4] Goal Plan of Care Note [code = 77846-8] Goal Plan of Care Note [code = 66305-9] Goal Plan of Care Note [code = 14010-8] Goal Plan of Care Note [code = 78342-6] Goal Plan of Care Note [code = 72979-7] Goal Plan of Care Note [code = 81840-8] Goal Plan of Care Note [code = 74992-0] Goal Plan of Care Note [code = 43992-9] Goal Plan of Care Note [code = 16450-1] Goal Plan of Care Note [code = 96511-5] Goal Plan of Care Note [code = 13246-5] Goal Plan of Care Note [code = 92454-4] Goal Plan of Care Note [code = 89786-4] Goal Plan of Care Note [code = 43503-5] Goal Plan of Care Note [code = 28022-8] Goal Plan of Care Note [code = 33706-0] Goal Plan of Care Note [code = 44022-0] Goal Plan of Care Note [code = 40885-1] Goal Plan of Care Note [code = 94362-1] Goal Plan of Care Note [code = 91934-5] Goal Plan of Care Note [code = 85008-6] Goal Plan of Care Note [code = 75657-5] Goal Plan of Care Note [code = 83754-9] Goal Plan of Care Note [code = 51100-5] Goal Plan of Care Note [code = 21200-9] Goal Plan of Care Note [code = 81841-9] Goal Plan of Care Note [code = 24402-2] Goal Plan of Care Note [code = 58389-4] Goal Plan of Care Note [code = 58818-9] Goal Plan of Care Note [code = 41496-6] Goal Plan of Care Note [code = 34131-2] Goal Plan of Care Note [code = 14706-3] Goal Plan of Care Note [code = 03712-1] Goal Plan of Care Note [code = 73551-7] Goal Plan of Care Note [code = 19344-2] Goal Plan of Care Note [code = 52681-0] Goal Plan of Care Note [code = 18848-7] Goal Plan of Care Note [code = 56503-0] Goal Plan of Care Note [code = 25110-0] Goal Plan of Care Note [code = 33411-1] Goal Plan of Care Note [code = 95278-2] Goal Plan of Care Note [code = 94083-1] Goal Plan of Care Note [code = 84176-2] Goal Plan of Care Note [code = 89029-6] Goal Plan of Care Note [code = 33761-8] Goal Plan of Care Note [code = 69608-0] Goal Plan of Care Note [code = 97388-2] Goal Plan of Care Note [code = 31804-8] Goal Plan of Care Note [code = 19546-2] Goal Plan of Care Note [code = 24720-6] Goal Plan of Care Note [code = 76256-6] Goal Plan of Care Note [code = 55850-1] Goal Plan of Care Note [code = 10785-2] Goal Plan of Care Note [code = 66952-4] Goal Plan of Care Note [code = 78201-8] Goal Plan of Care Note [code = 19951-2] Goal Plan of Care Note [code = 24319-6] Goal Plan of Care Note [code = 67467-5] Goal Plan of Care Note [code = 15043-3] Goal Plan of Care Note [code = 80034-2] Goal Plan of Care Note [code = 53422-7] Goal Plan of Care Note [code = 13389-9] Goal Plan of Care Note [code = 89824-4] Goal Plan of Care Note [code = 78911-3] Goal Plan of Care Note [code = 35794-2] Goal Plan of Care Note [code = 60087-8] Goal Plan of Care Note [code = 49697-2] Goal Plan of Care Note [code = 92622-7] Goal Plan of Care Note [code = 58567-3] Goal Plan of Care Note [code = 03600-5] Goal Plan of Care Note [code = 19571-9] Goal Plan of Care Note [code = 60231-6] Goal Plan of Care Note [code = 56177-6] Goal Plan of Care Note [code = 86855-1] Goal Plan of Care Note [code = 83248-6] Goal Plan of Care Note [code = 86439-7] Goal Plan of Care Note [code = 95580-8] Goal Plan of Care Note [code = 80520-9] Goal Plan of Care Note [code = 24324-2] Goal Plan of Care Note [code = 37065-6] Goal Plan of Care Note [code = 43342-2] Goal Plan of Care Note [code = 00726-9] Goal Plan of Care Note [code = 92310-6] Goal Plan of Care Note [code = 76072-1] Goal Plan of Care Note [code = 52224-8] Goal Plan of Care Note [code = 35903-1] Goal Plan of Care Note [code = 46719-7] Goal Plan of Care Note [code = 83311-5] Goal Plan of Care Note [code = 17803-9] Goal Plan of Care Note [code = 40935-5] Goal Plan of Care Note [code = 81745-1] Goal Plan of Care Note [code = 96557-6] Goal Plan of Care Note [code = 45855-2] Goal Plan of Care Note [code = 83952-5] Goal Plan of Care Note [code = 34317-9] Goal Plan of Care Note [code = 63078-8] Goal Plan of Care Note [code = 24867-3] Goal Plan of Care Note [code = 20717-2] Goal Plan of Care Note [code = 08877-4] Goal Plan of Care Note [code = 32977-7] Goal Plan of Care Note [code = 63257-7] Goal Plan of Care Note [code = 04248-8] Goal Plan of Care Note [code = 49405-0] Goal Plan of Care Note [code = 69224-7] Goal Plan of Care Note [code = 84742-8] Goal Plan of Care Note [code = 13859-3] Goal Plan of Care Note [code = 38440-5] Goal Plan of Care Note [code = 54452-8] Goal Plan of Care Note [code = 63835-2] Goal Plan of Care Note [code = 77538-4] Goal Plan of Care Note [code = 65656-8] Goal Plan of Care Note [code = 54031-0] Goal Plan of Care Note [code = 24540-8] Goal Plan of Care Note [code = 99004-0] Goal Plan of Care Note [code = 38624-3] Goal Plan of Care Note [code = 16687-1] Goal Plan of Care Note [code = 11386-6] Goal Plan of Care Note [code = 00867-5] Goal Plan of Care Note [code = 84653-7] Goal Plan of Care Note [code = 15928-7] Goal Plan of Care Note [code = 24629-9] Goal Plan of Care Note [code = 13478-8] Goal Plan of Care Note [code = 80671-0] Goal Plan of Care Note [code = 96610-0] Goal Plan of Care Note [code = 42140-7] Goal Plan of Care Note [code = 69999-1] Goal Plan of Care Note [code = 78467-6] Goal Plan of Care Note [code = 98355-8] Goal Plan of Care Note [code = 31130-2] Goal Plan of Care Note [code = 57158-5] Goal Plan of Care Note [code = 08838-9] Goal Plan of Care Note [code = 16177-6] Goal Plan of Care Note [code = 21269-9] Goal Plan of Care Note [code = 09701-1] Goal Plan of Care Note [code = 77013-6] Goal Plan of Care Note [code = 84884-4] Goal Plan of Care Note [code = 50058-3] Goal Plan of Care Note [code = 40138-0] Goal Plan of Care Note [code = 59463-9] Goal Plan of Care Note [code = 01394-3] Goal Plan of Care Note [code = 96123-3] Goal Plan of Care Note [code = 85935-3] Goal Plan of Care Note [code = 97129-2] Goal Plan of Care Note [code = 36606-9] Goal Plan of Care Note [code = 42898-3] Goal Plan of Care Note [code = 61932-2] Goal Plan of Care Note [code = 94397-6] Goal Plan of Care Note [code = 00533-8] Goal Plan of Care Note [code = 73610-3] Goal Plan of Care Note [code = 21432-9] Goal Plan of Care Note [code = 58611-5] Goal Plan of Care Note [code = 83628-5] Goal Plan of Care Note [code = 20446-9] Goal Plan of Care Note [code = 16987-4] Goal Plan of Care Note [code = 57801-4] Goal Plan of Care Note [code = 44883-8] Goal Plan of Care Note [code = 11753-9] Goal Plan of Care Note [code = 54819-6] Goal Plan of Care Note [code = 65227-3] Goal Plan of Care Note [code = 22266-0] Goal Plan of Care Note [code = 18739-7] Goal Plan of Care Note [code = 71205-8] Goal Plan of Care Note [code = 25875-9] Encounters Start Date/Time End Date/Time Encounter Type Admission Type Attending [facility] Care Department Encounter ID Source 2023-12-04 10:08:00 [facility] [id number] [facility] 2023-11-11 14:53:00 [facility] [id number] [facility] 2023-03-29 10:18:01 [facility] [id number] [facility] 2023-03-28 14:01:00 [facility] [id number] [facility] 2023-03-26 15:20:01 Outpatient Zaria Orellana [facility] [id number] [facility] 2024-06-01 10:21:20 2024-06-01 10:21:20 Outpatient SFA SFA [id number] Delfino Schumacher You 2024-05-27 08:17:14 2024-05-27 08:17:14 Outpatient SFA SFA [id number] Delfino Schumacher You 2024-05-27 00:00:00 2024-05-27 00:00:00 Outpatient Visit SFA [id number] Delfino Schumacher You 2024-05-13 14:25:39 2024-05-13 14:25:39 Outpatient SFA SFA [id number] Delfino Schumacher You 2024-05-13 00:00:00 2024-05-13 00:00:00 Outpatient Visit SFA [id number] Delfino Orta 2024-05-07 00:00:00 2024-05-07 00:00:[address] [facility] [id number] Delfino Orta 2024-05-05 09:58:47 2024-05-05 09:58:47 Outpatient SFA SFA [id number] Delfino Orta 2024-05-05 00:00:00 2024-05-05 00:00:00 Outpatient Visit SFA [id number] Delfino Orta 2024-04-22 00:00:00 2024-04-22 00:00:00 [facility] [id number] [facility] 2024-04-09 09:05:03 2024-04-09 09:05:[address] [facility] [id number] Delfino Orta 2024-04-09 00:00:00 2024-04-09 00:00:00 Outpatient Visit SFA [id number] Delfino Orta 2024-04-08 15:06:50 2024-04-08 15:06:[address] [facility] [id number] Delfino Orta 2024-04-08 00:00:00 2024-04-08 00:00:00 Outpatient Visit SFA SFA [id number] Delfino Orta 2023-06-26 00:00:00 2024-03-28 07:46:41 Orders Only Doctor Unassigned, [place] Doctor Unassigned, [place] [facility] [id number] [id number] [id number] [id number] [facility] 2024-03-09 08:55:19 2024-03-09 08:55:19 Outpatient SFA SFA [id number] Delfino Orta 2024-03-09 00:00:00 2024-03-09 00:00:00 Outpatient Visit SFA [id number] Delfino Orta 2024-02-26 11:12:50 2024-02-26 11:12:50 Outpatient SFA SFA [id number] Delfino Orta 2024-02-26 00:00:00 2024-02-26 00:00:00 Outpatient Visit SFA [id number] Delfino Orta 2024-02-07 11:11:04 2024-02-07 11:11:[address] [facility] [id number] Delfino Orta 2024-02-07 00:00:00 2024-02-07 00:00:00 Outpatient Visit SFA [id number] Delfino Orta 2024-01-13 09:11:38 2024-01-13 09:11:[address] [facility] [id number] Delfino Orta 2024-01-13 00:00:00 2024-01-13 00:00:00 Outpatient Visit SFA [id number] Delfino Orta 2024-01-01 00:00:00 2024-01-01 00:00:00 Outpatient Visit SFA [id number] [id number] Delfino Orta 2023-11-28 00:00:00 2023-11-28 00:00:00 Outpatient Visit SFA [id number] Delfino Orta 2023-11-20 09:01:17 2023-11-20 09:01:17 Outpatient SFA SFA [id number] Delfino Orta 2023-11-19 10:28:43 2023-11-19 10:28:43 Outpatient SFA SFA [id number] Delfino Orta 2023-11-19 00:00:00 2023-11-19 00:00:00 Outpatient Visit SFA [id number] Delfino Orta 2023-11-12 00:00:00 2023-11-12 00:00:00 (TEL) [facility] [id number] [facility] 2023-11-11 00:00:00 2023-11-11 00:00:00 OFFICE VISIT NEW PT LEVEL 4 [facility] [id number] [facility] 2023-11-02 11:02:07 2023-11-02 11:02:07 Outpatient SFA SFA 21 Delfino Orta 2023-11-02 00:00:00 2023-11-02 00:00:00 Outpatient Visit SFA [id number] Delfino Orta 2023-10-09 14:12:37 2023-10-09 14:12:37 Outpatient SFA SFA 28 Delfino Orta 2023-10-09 00:00:00 2023-10-09 00:00:00 Outpatient Visit SFA [id number] Delfino Orta 2023-09-23 13:55:35 2023-09-23 13:55:35 Outpatient SFA SFA [id number] Delfino Orta 2023-09-23 00:00:00 2023-09-23 00:00:00 Outpatient Visit SFA [id number] Delfino Orta 2023-09-10 09:05:48 2023-09-10 09:05:48 Outpatient SFA SFA [id number] Delfino Orta 2023-09-10 00:00:00 2023-09-10 00:00:00 Outpatient Visit SFA [id number] Delfino Orta 2023-08-28 13:07:55 2023-08-28 13:07:55 Outpatient SFA SFA [id number] Delfino Orta 2023-08-28 00:00:00 2023-08-28 00:00:00 Outpatient Visit SFA [id number] Delfino Orta 2023-08-22 00:00:00 2023-08-22 00:00:00 Outpatient Visit SFA [id number] Delfino Orta 2023-08-09 14:45:50 2023-08-09 14:45:50 Outpatient SFA SFA [id number] Delfino Orta 2023-08-09 00:00:00 2023-08-09 00:00:00 Outpatient Visit SFA [id number] Delfino Orta 2023-07-24 11:05:48 2023-07-24 11:05:48 Outpatient SFA SFA [id number] Delfino Orta 2023-07-24 00:00:00 2023-07-24 00:00:00 Outpatient Visit [facility] [id number] Delfino Orta 2023-07-09 00:00:00 2023-07-09 00:00:00 Outpatient Visit [facility] [id number] Delfino Orta 2023-07-02 00:00:00 2023-07-02 14:33:10 [facility].114 350.1.13.10 4.2.7.2.686 [id number] [facility] 2023-06-05 13:09:09 2023-06-05 13:09:[address] [facility] [id number] Delfino Orta 2023-06-04 13:27:22 2023-06-04 13:27:[address] [facility] [id number] Delfino Schumacher You 2023-06-04 00:00:00 2023-06-04 00:00:00 Outpatient Visit [facility] [id number] Delfino Schumacher You 2023-05-21 00:00:00 2023-05-21 00:00:00 Transition of Care jL Paredes [facility] 1.2.840.114 350.1.13.10 4.2.7.2.686 [id number] [facility] 2023-05-16 12:13:00 2023-05-20 16:40:00 Inpatient X KVNG ROBERSON IDANGELA AURELIA [id number] [facility] 2023-05-16 12:13:00 2023-05-20 16:40:00 Hospital Encounter Anyi Munguia David [facility] 1.2.840.114 350.1.13.10 4.2.7.2.686 [id number] [facility] 2023-05-09 13:59:33 2023-05-09 13:59:[address] [facility] [id number] Delfino Schumacher You 2023-04-18 10:12:11 2023-04-18 10:12:[address] [facility] [id number] Delfino Schumacher You 2023-04-02 09:41:47 2023-04-02 09:41:[address] [facility] [id number] Delfino Schumacher You 2023-03-20 10:44:00 2023-03-20 12:35:00 Emergency X DHIRAJ, ANYI [facility] ERT [id number] [facility] 2023-03-20 10:44:00 2023-03-20 12:35:00 Emergency Anyi Munguia [facility] 1.84.114 350.1.13.10 4.2.7.2.686 [id number] [facility] 2023-03-18 10:58:22 2023-03-18 10:58:[address] [facility] [id number] Delfino Schumacher You 2023-03-14 14:37:27 2023-03-14 14:37:27 Outpatient [facility] [id number] Delfino Schumacher You 2023-03-07 13:58:45 2023-03-07 13:58:45 Outpatient [facility] [id number] Delfino Orta 2022-12-14 14:53:29 2022-12-14 14:53:29 Outpatient [place] [id number] Delfino Schumacher You 2022-10-04 11:25:10 2022-10-04 11:25:[address] [facility] [id number] Delfino Schumacher Bailey 2022-09-17 11:44:00 2022-09-17 14:31:00 Emergency X [facility] [facility] [id number] [facility] 2022-09-17 11:44:00 2022-09-17 14:31:00 Emergency Gaston Hobbs J [facility] 1.84.114 350.1.13.10 4.2.7.2.686 [id number] [facility] 2022-09-12 09:01:58 2022-09-12 09:01:[address] [facility] [id number] Delfino Orta 2022-09-11 00:00:00 2022-09-11 00:00:00 Case Management Mark [facility] 1.840.114 350.1.13.10 4.2.7.2.686 [id number] [facility] 2022-08-07 09:45:03 2022-08-07 09:45:[address] [facility] [id number] Delfino Orta 2022-08-01 13:52:32 2022-08-01 13:52:[address] [facility] [id number] Delfino Orta 2022-07-18 09:30:00 2022-07-18 09:30:00 Outpatient R CLARITZA JAMISON [facility] [id number] [facility] 2022-07-04 11:11:38 2022-07-04 11:11:38 Outpatient [place] [id number] Delfino Orta 2022-06-05 00:00:00 2022-06-05 00:00:00 Orders Only Doctor Unassigned, Kadoka [facility] 1..840.114 350.1.13.10 4.2.7.2.686 [id number] [facility] 2022-05-29 09:31:33 2022-05-29 09:31:33 Outpatient [facility] [id number] Delfino Orta 2022-05-15 13:00:00 2022-05-15 13:00:00 Outpatient R [facility] [id number] [facility] 2022-05-15 09:34:43 2022-05-15 09:34:43 Outpatient [facility] [id number] Delfino Orta 2022-04-19 15:25:24 2022-04-19 15:25:24 Outpatient [facility] [id number] Delfino Orta 2022-04-04 00:00:00 2022-04-04 00:00:00 Case Management Jeanine Almaguer [facility] 1.840.114 350.1.13.10 4.2.7.2.686 [id number] [facility] 2022-04-03 13:00:00 2022-04-03 14:00:00 Office Visit Guerline Garcia [facility] 1.0.114 350.1.13.10 4.2.7.2.686 [id number] [facility] 2022-04-03 13:00:00 2022-04-03 13:00:00 Outpatient R GUERO MARTINEZ [facility] [id number] [facility] 2022-04-02 15:14:37 2022-04-02 15:14:[address] [facility] [id number] Delfino Orta 2022-03-28 13:26:46 2022-03-28 13:26:[address] [facility] [id number] Delfino Orta 2022-02-28 11:43:30 2022-02-28 11:43:[address] [facility] [id number] Delfino Orta 2022-02-28 00:00:00 2022-02-28 00:00:00 Outpatient Visit [id number] 2022-02-27 15:30:00 2022-02-27 15:30:00 Outpatient R [facility] [id number] [facility] 2022-02-23 10:25:15 2022-02-23 10:25:[address] [facility] [facility] [id number] Delfino Schumacher You 2022-02-22 00:00:00 2022-02-22 00:00:00 Case Management Jeanine Almaguer R [facility] 1..114 350.1.13.10 4.2.7.2.686 [id number] [facility] 2022-01-29 00:00:00 2022-01-29 00:00:00 Case Management Osman Ware L [facility] 1.840.114 350.1.13.10 4.2.7.2.686 [id number] [facility] 2022-01-19 13:56:18 2022-01-19 13:56:[address] [facility] [id number] Delfino Orta 2022-01-19 00:00:00 2022-01-19 00:00:00 Orders Only Doctor Unassigned, Kadoka [facility] 1.2.840.114 350.1.13.10 4.2.7.2.686 [id number] [facility] 2022-01-19 00:00:00 2022-01-19 00:00:00 Outpatient Visit [id number] 2021-11-15 00:00:00 2021-11-15 00:00:[address]andra Flores [facility] 1.2.840.114 350.1.13.10 4.2.7.2.686 [id number] [facility] 2021-11-06 00:00:00 2021-11-06 00:00:00 Outpatient Visit [id number] 2021-10-10 09:30:00 2021-10-10 09:30:00 Outpatient R [facility] [id number] [facility] 2021-09-07 00:00:00 2021-09-07 00:00:00 Outpatient ELO BHARDWAJ [id number] Radha bentley [facility] 2021-08-25 03:29:00 2021-08-25 03:29:00 [facility] [id number] [facility] 2021-08-07 00:00:00 2021-08-07 00:00:00 Outpatient Visit [id number] 2021-07-18 15:15:00 2021-07-18 16:23:57 Outpatient R DOLLY APOLINAR [facility] [id number] [facility] 2021-07-18 15:15:00 2021-07-18 16:23:57 Office Visit Pgy2 Apolinar Weber [facility] 1.0.114 350.1.13.10 4.2.7.2.686 [id number] [facility] 2021-07-18 15:15:00 2021-07-18 16:23:57 Outpatient R DOLLY APOLINAR [facility] [id number] [facility] 2021-06-27 00:00:00 2021-06-27 00:00:[address] [facility] 1..114 350.1.13.10 4.2.7.2.686 [id number] [facility] 2021-06-15 00:00:00 2021-06-15 00:00:00 Transition of Care Lj Paredes 1.0.114 350.1.13.10 4.2.7.2.686 [id number] [facility] 2021-06-09 10:48:00 2021-06-14 17:22:00 Inpatient X BILLY VALERIO [facility] [id number] [facility] 2021-06-09 10:48:00 2021-06-14 17:22:00 Hospital Encounter Toby Donohue A [place], Alfred Scott [facility] 1.0.114 350.1.13.10 4.2.7.2.686 [id number] [facility] 2021-06-12 00:00:00 2021-06-12 00:00:00 Case Management Evette Dunn Vincenzo [facility] 1.2.840.114 350.1.13.10 4.2.7.2.686 [id number] [facility] 2021-06-08 10:46:00 2021-06-08 16:28:00 Emergency X KENNEDI BLUE [facility] ERT [id number] [facility] 2021-06-08 10:46:00 2021-06-08 16:28:00 Emergency Kennedi Blue [facility] 1.2.840.114 350.1.13.10 4.2.7.2.686 [id number] [facility] 2021-05-24 00:00:00 2021-05-24 00:00:00 Letter (Out) Mikael Quiroz [facility] 1.2.840.114 350.1.13.10 4.2.7.2.686 [id number] [facility] 2021-05-23 00:00:00 2021-05-23 00:00:00 Orders Only Doctor Unassigned, Kadoka [facility] 1.2.840.114 350.1.13.10 4.2.7.2.686 [id number] [facility] 2021-05-16 09:00:00 2021-05-16 09:00:00 [place] [id number] [facility] 2021-05-01 11:30:00 2021-05-01 12:47:00 Emergency X LJ LIANG [facility] ERT [id number] [facility] 2021-05-01 11:30:00 2021-05-01 12:47:00 Emergency Lj Liang [facility] 1.2.840.114 350.1.13.10 4.2.7.2.686 [id number] [facility] 2020-10-04 11:44:00 2020-10-04 12:54:00 Emergency X MAYRA MARGARET [facility] ERT [id number] [facility] 2020-10-04 11:44:00 2020-10-04 12:54:00 Emergency Mayra Margaret [facility] 1.20.114 350.1.13.10 4.2.7.2.686 [id number] [facility] 2020-09-29 00:00:00 2020-09-29 00:00:00 Telephone Bonny Morris [facility] 1..114 350.1.13.10 4.2.7.2.686 [id number] [facility] 2020-09-22 14:30:00 2020-09-22 14:30:00 Outpatient R BONNY MORRIS [facility] [id number] [facility] 2020-08-25 11:32:00 2020-08-25 11:32:00 Outpatient Adams_R DM[facility] [id number] [facility] 2020-08-25 09:28:00 2020-08-25 10:21:00 Emergency Mayra Margaret [facility] 1.2.114 350.1.13.10 4.2.7.2.686 [id number] [facility] 2020-08-25 09:28:00 2020-08-25 10:21:00 Emergency MARGARET ROBERTSON [facility] ERT [id number] [facility] 2020-08-24 14:43:00 2020-08-24 15:59:00 Emergency Terri Elliott [facility] 1.2.114 350.1.13.10 4.2.7.2.686 [id number] [facility] 2020-08-24 14:43:00 2020-08-24 15:59:00 Emergency X [facility] ERT [id number] [facility] 2020-08-24 00:00:00 2020-08-24 00:00:00 Telephone Bonny MorrisHAg [facility] 1.2.840.114 350.1.13.10 4.2.7.2.686 [id number] [facility] 2020-08-12 15:00:00 2020-08-12 15:00:00 Outpatient R BONNY MORRIS [facility] [id number] [facility] 2020-08-12 00:00:00 2020-08-12 00:00:00 Telephone Bonny Morris [facility] 1.2.840.114 350.1.13.10 4.2.7.2.686 [id number] [facility] 2020-08-04 01:58:00 2020-08-04 01:58:00 Outpatient Adams_R DM[facility] [id number] [facility] 2020-07-28 00:00:00 2020-07-28 00:00:00 Telephone Bonny MorrisHAg [facility] 1.2.840.114 350.1.13.10 4.2.7.2.686 [id number] [facility] 2020-07-28 00:00:00 2020-07-28 00:00:00 Orders Only Doctor Unassigned, Kadoka [facility] 1.2.840.114 350.1.13.10 4.2.7.2.686 [id number] [facility] 2020-07-27 00:00:00 2020-07-27 00:00:00 Telephone MorrisUshaiva MickyAg [facility] 1.2.840.114 350.1.13.10 4.2.7.2.686 [id number] [facility] 2020-07-27 00:00:00 2020-07-27 00:00:00 Telephone [facility] 1.2.840.114 350.1.13.10 4.2.7.2.686 [id number] [facility] 2020-07-26 14:25:36 2020-07-26 15:12:16 Office Visit Bonny Morris TerriAgMarshaAg [facility] 1.2.840.114 350.1.13.10 4.2.7.2.686 [id number] [facility] 2020-07-26 14:30:00 2020-07-26 14:30:00 Outpatient R BONNY MORRIS [facility] [id number] [facility] 2020-07-20 10:25:00 2020-07-20 15:52:00 Emergency Dawn lBanco S [facility] 1.2.840.114 350.1.13.10 4.2.7.2.686 [id number] [facility] 2020-07-20 10:16:00 2020-07-20 10:16:00 Emergency X [facility] ERT [id number] [facility] 2020-07-18 01:42:00 2020-07-18 01:42:00 Outpatient Sammi [place] [id number] [facility] 2020-07-01 13:47:00 2020-07-01 16:34:00 Emergency Josse Lockhart [facility] 1.2.840.114 350.1.13.10 4.2.7.2.686 [id number] [facility] 2020-07-01 13:47:00 2020-07-01 16:34:00 Emergency X JOSSE LOCKHART [facility] ERT [id number] [facility] 2020-07-01 13:47:00 2020-07-01 16:34:00 Emergency Josse Lockhart [facility] 1.2.840.114 350.1.13.10 4.2.7.2.686 [id number] Results Test Description Test Time Test Comments Results Result Co mments Source LIPID [id number] 06:36:53* Test Item Value Reference Range Interpretation [...] SPECIMENS. FOR MOREINFORMATION, SEE CLIENT ANNOUNCEMENT AT [email or web address] RISK RATIO LDL/HDL (test code = 2238) 0.66 RATIO <3.22 HEMOGLOBIN [id number] 04:59:33* Test Item Value Reference Range Interpretation Comme [facility] HEMOGLOBIN A1c (test code = 11223) 5.9 % 4.2-5.6 H [employer] GUIDELINES FOR HGB A1C: [...] INDICATED, ALL TESTING PERFORMED AT [facility] [employer] [address] [place] [address] REGULATORY SPECIALIST: ABBI SHORT M.D. CLIA NUMBER [id number] [facility] [place]. [id number] CBC W/AUTO DIFF WITH [id number] 03:30:09* Test Item Value Reference Range Interpretation [...] 0.00-0.10 ABS NUCLEATED RBCS (test code = 83083) 0.00 K/UL 0.00-0.11 COMPREHENSIVE METABOLIC [id number] 00:00:00* Test Item Value Reference Range Interpretation Comme nts GLUCOSE (test code = 2217) 87 MG/DL BUN (test code = 2208) 19 MG/DL CREATININE (test code = 2214) 1.49 MG/DL eGFR (2020 CKD-EPI) (test co de = 54673) 40 ML/MIN/1.73 CALC BUN/CREAT (test code = [...] code = 2219) 25 U/L Delfino Schumacher [facility] W/AUTO [id number] 00:00:00* Test Item Value Reference Range Interpretation [...] ABS NUCLEATED RBCS (test cod e = 98673) 0.00 K/UL Delfino OrtaLIPID [id number] 00:00:00* Test Item Value Reference Range Interpretation Comme nts CHOLESTEROL (test code = 2210) 196 MG/DL TRIGLYCERIDES (test code = 2232) 66 MG/DL HDL CHOLESTEROL (test code = 2220) 109 MG/DL CALC LDL CHOL (test code = 2237) 72 MG/DL RISK RATIO LDL/HDL (test cod e = 2238) 0.66 RATIO Delfino OrtaHEMOGLOBIN [id number] 00:00:00* Test Item Value Reference Range Interpretation Comme nts HEMOGLOBIN A1c (test code = 08741) 5.9 % Delfino OrtaCOMPREHENSIVE METABOLIC [id number] 00:00:00* Test Item Value Reference Range Interpretation Comme nts GLUCOSE (test code = 2217) 87 MG/DL BUN (test code = 2208) 19 MG/DL CREATININE (test code = 2214) 1.49 MG/DL eGFR (2020 CKD-EPI) (test co de = 29089) 40 ML/MIN/1.73 CALC BUN/CREAT (test code = [...] = 2219) 25 U/L Delfino OrtaCBC W/AUTO [id number] 00:00:00* Test Item Value Reference Range Interpretation [...] ABS NUCLEATED RBCS (test cod e = 88188) 0.00 K/UL Delfino OrtaLIPID [id number] 00:00:00* Test Item Value Reference Range Interpretation Comme nts CHOLESTEROL (test code = 2210) 196 MG/DL TRIGLYCERIDES (test code = 2232) 66 MG/DL HDL CHOLESTEROL (test code = 2220) 109 MG/DL CALC LDL CHOL (test code = 2237) 72 MG/DL RISK RATIO LDL/HDL (test cod e = 2238) 0.66 RATIO Delfino OrtaHEMOGLOBIN [id number] 00:00:00* Test Item Value Reference Range Interpretation Comme nts HEMOGLOBIN A1c (test code = 15774) 5.9 % Delfino OrtaCOMPREHENSIVE METABOLIC [id number] 00:00:00* Test Item Value Reference Range Interpretation Comme nts GLUCOSE (test code = 2217) 87 MG/DL BUN (test code = 2208) 19 MG/DL CREATININE (test code = 2214) 1.49 MG/DL eGFR (2020 CKD-EPI) (test co de = 97014) 40 ML/MIN/1.73 CALC BUN/CREAT (test code = [...] = 2219) 25 U/L Delfino OrtaCBC W/AUTO [id number] 00:00:00* Test Item Value Reference Range Interpretation [...] ABS NUCLEATED RBCS (test cod e = 56528) 0.00 K/UL Delfino Schumacher AustinLIPID [id number] 00:00:00* Test Item Value Reference Range Interpretation Comme nts CHOLESTEROL (test code = 2210) 196 MG/DL TRIGLYCERIDES (test code = 2232) 66 MG/DL HDL CHOLESTEROL (test code = 2220) 109 MG/DL CALC LDL CHOL (test code = 2237) 72 MG/DL RISK RATIO LDL/HDL (test cod e = 2238) 0.66 RATIO Delfino OrtaHEMOGLOBIN [id number] 00:00:00* Test Item Value Reference Range Interpretation Comme nts HEMOGLOBIN A1c (test code = 07486) 5.9 % Delfino OrtaCOMPREHENSIVE METABOLIC [id number] 00:00:00* Test Item Value Reference Range Interpretation Comme nts GLUCOSE (test code = 2217) 87 MG/DL BUN (test code = 2208) 19 MG/DL CREATININE (test code = 2214) 1.49 MG/DL eGFR (2020 CKD-EPI) (test co de = 06183) 40 ML/MIN/1.73 CALC BUN/CREAT (test code = [...] (test code = 2219) 25 U/[facility] [id number] 00:00:00* Test Item Value Reference Range Interpretation [...] ABS NUCLEATED RBCS (test cod e = 01723) 0.00 K/UL Delfino OrtaLIPID [id number] 00:00:00* Test Item Value Reference Range Interpretation Comme nts CHOLESTEROL (test code = 2210) 196 MG/DL TRIGLYCERIDES (test code = 2232) 66 MG/DL HDL CHOLESTEROL (test code = 2220) 109 MG/DL CALC LDL CHOL (test code = 2237) 72 MG/DL RISK RATIO LDL/HDL (test cod e = 2238) 0.66 RATIO Delfino OrtaHEMOGLOBIN [id number] 00:00:00* Test Item Value Reference Range Interpretation Comme nts HEMOGLOBIN A1c (test code = 04475) 5.9 % Delfino OrtaCOMPREHENSIVE METABOLIC [id number] 00:00:00* Test Item Value Reference Range Interpretation Comme nts GLUCOSE (test code = 2217) 87 MG/DL BUN (test code = 2208) 19 MG/DL CREATININE (test code = 2214) 1.49 MG/DL eGFR (2020 CKD-EPI) (test co de = 12692) 40 ML/MIN/1.73 CALC BUN/CREAT (test code = [...] = 2219) 25 U/L Delfino OrtaCBC W/AUTO [id number] 00:00:00* Test Item Value Reference Range Interpretation [...] ABS NUCLEATED RBCS (test cod e = 41296) 0.00 K/UL Delfino Schumacher YouLIPID [id number] 00:00:00* Test Item Value Reference Range Interpretation Comme nts CHOLESTEROL (test code = 2210) 196 MG/DL TRIGLYCERIDES (test code = 2232) 66 MG/DL HDL CHOLESTEROL (test code = 2220) 109 MG/DL CALC LDL CHOL (test code = 2237) 72 MG/DL RISK RATIO LDL/HDL (test cod e = 2238) 0.66 RATIO Delfino OrtaHEMOGLOBIN [id number] 00:00:00* Test Item Value Reference Range Interpretation Comme nts HEMOGLOBIN A1c (test code = 34524) 5.9 % Delfino Schumacher YouCOMPREHENSIVE METABOLIC [id number] 00:00:00* Test Item Value Reference Range Interpretation Comme nts GLUCOSE (test code = 2217) 87 MG/DL BUN (test code = 2208) 19 MG/DL CREATININE (test code = 2214) 1.49 MG/DL eGFR (2020 CKD-EPI) (test co de = 74089) 40 ML/MIN/1.73 CALC BUN/CREAT (test code = [...] code = 2219) 25 U/L Delfino Schumacher [facility] W/AUTO [id number] 00:00:00* Test Item Value Reference Range Interpretation [...] ABS NUCLEATED RBCS (test cod e = 96135) 0.00 K/UL Delfino OrtaLIPID [id number] 00:00:00* Test Item Value Reference Range Interpretation Comme nts CHOLESTEROL (test code = 2210) 196 MG/DL TRIGLYCERIDES (test code = 2232) 66 MG/DL HDL CHOLESTEROL (test code = 2220) 109 MG/DL CALC LDL CHOL (test code = 2237) 72 MG/DL RISK RATIO LDL/HDL (test cod e = 2238) 0.66 RATIO Delfino OrtaHEMOGLOBIN [id number] 00:00:00* Test Item Value Reference Range Interpretation Comme nts HEMOGLOBIN A1c (test code = 69276) 5.9 % Delfino OrtaCOMPREHENSIVE METABOLIC [id number] 00:00:00* Test Item Value Reference Range Interpretation Comme nts GLUCOSE (test code = 2217) 87 MG/DL BUN (test code = 2208) 19 MG/DL CREATININE (test code = 2214) 1.49 MG/DL eGFR (2020 CKD-EPI) (test co de = 86915) 40 ML/MIN/1.73 CALC BUN/CREAT (test code = [...] = 2219) 25 U/L Delfino OrtaCBC W/AUTO [id number] 00:00:00* Test Item Value Reference Range Interpretation [...] ABS NUCLEATED RBCS (test cod e = 66725) 0.00 K/UL Delfino OrtaLIPID [id number] 00:00:00* Test Item Value Reference Range Interpretation Comme nts CHOLESTEROL (test code = 2210) 196 MG/DL TRIGLYCERIDES (test code = 2232) 66 MG/DL HDL CHOLESTEROL (test code = 2220) 109 MG/DL CALC LDL CHOL (test code = 2237) 72 MG/DL RISK RATIO LDL/HDL (test cod e = 2238) 0.66 RATIO Delfino OrtaHEMOGLOBIN [id number] 00:00:00* Test Item Value Reference Range Interpretation Comme nts HEMOGLOBIN A1c (test code = 05456) 5.9 % Delfino OrtaCOMPREHENSIVE METABOLIC [id number] 00:00:00* Test Item Value Reference Range Interpretation Comme nts GLUCOSE (test code = 2217) 87 MG/DL BUN (test code = 2208) 19 MG/DL CREATININE (test code = 2214) 1.49 MG/DL eGFR (2020 CKD-EPI) (test co de = 22757) 40 ML/MIN/1.73 CALC BUN/CREAT (test code = [...] code = 2219) 25 U/L Delfino Schumacher [facility] W/AUTO [id number] 00:00:00* Test Item Value Reference Range Interpretation [...] ABS NUCLEATED RBCS (test cod e = 11092) 0.00 K/UL Delfino OrtaLIPID [id number] 00:00:00* Test Item Value Reference Range Interpretation Comme nts CHOLESTEROL (test code = 2210) 196 MG/DL TRIGLYCERIDES (test code = 2232) 66 MG/DL HDL CHOLESTEROL (test code = 2220) 109 MG/DL CALC LDL CHOL (test code = 2237) 72 MG/DL RISK RATIO LDL/HDL (test cod e = 2238) 0.66 RATIO Delfino OrtaHEMOGLOBIN [id number] 00:00:00* Test Item Value Reference Range Interpretation Comme nts HEMOGLOBIN A1c (test code = 55562) 5.9 % Delfino OrtaCOMPREHENSIVE METABOLIC [id number] 00:00:00* Test Item Value Reference Range Interpretation Comme nts GLUCOSE (test code = 2217) 87 MG/DL BUN (test code = 2208) 19 MG/DL CREATININE (test code = 2214) 1.49 MG/DL eGFR (2020 CKD-EPI) (test co de = 06500) 40 ML/MIN/1.73 CALC BUN/CREAT (test code = [...] = 2219) 25 U/L Delfino OrtaCBC W/AUTO [id number] 00:00:00* Test Item Value Reference Range Interpretation [...] ABS NUCLEATED RBCS (test cod e = 17943) 0.00 K/UL Delfino OrtaLIPID [id number] 00:00:00* Test Item Value Reference Range Interpretation Comme nts CHOLESTEROL (test code = 2210) 196 MG/DL TRIGLYCERIDES (test code = 2232) 66 MG/DL HDL CHOLESTEROL (test code = 2220) 109 MG/DL CALC LDL CHOL (test code = 2237) 72 MG/DL RISK RATIO LDL/HDL (test cod e = 2238) 0.66 RATIO Delfino OrtaHEMOGLOBIN [id number] 00:00:00* Test Item Value Reference Range Interpretation Comme [facility] HEMOGLOBIN A1c (test code = 60707) 5.9 % Delfino OrtaCOMPREHENSIVE METABOLIC [id number] 00:00:00* Test Item Value Reference Range Interpretation Comme nts GLUCOSE (test code = 2217) 87 MG/DL BUN (test code = 2208) 19 MG/DL CREATININE (test code = 2214) 1.49 MG/DL eGFR (2020 CKD-EPI) (test co de = 97274) 40 ML/MIN/1.73 CALC BUN/CREAT (test code = [...] = 2219) 25 U/L Delfino OrtaCBC W/AUTO [id number] 00:00:00* Test Item Value Reference Range Interpretation [...] ABS NUCLEATED RBCS (test cod e = 86770) 0.00 K/UL Delfino OrtaLIPID [id number] 00:00:00* Test Item Value Reference Range Interpretation Comme nts CHOLESTEROL (test code = 2210) 196 MG/DL TRIGLYCERIDES (test code = 2232) 66 MG/DL HDL CHOLESTEROL (test code = 2220) 109 MG/DL CALC LDL CHOL (test code = 2237) 72 MG/DL RISK RATIO LDL/HDL (test cod e = 2238) 0.66 RATIO Delfino OrtaHEMOGLOBIN [id number] 00:00:00* Test Item Value Reference Range Interpretation Comme nts HEMOGLOBIN A1c (test code = 42594) 5.9 % Delfino OrtaHIV-1 QUANT, [id number] 11:19:24* Test Item Value Reference Range Interpretation [facility] HIV-1 VIRAL COPY (test code = 4141) TEST NOT PERFORMED COPIES/ML Unable to perform testing, specimen not received.Charges adjusted as applicable. HIV-1 VIRAL LOG (test code = 53340) TEST NOT PERFORMED LOG COPIES/ML Range of quantitatio n is 20-10,000,000 Copies/mL, (1.301-7.000log Copies/mL). Samples with HIV RNA detected below the limit ofquantitation are reported as <20 Copies/mL. Assay methodology ispolymerase chain reaction (PCR) using the [employer] 6800/8800system. The expected result is NOT DETECTED. For diagnostic use,please refer to laboratory test compendium. HIV-1 QUANT, [id number] 00:00:00* Test Item Value Reference Range Interpretation Comme nts HIV-1 VIRAL COPY (test code = 4141) TEST NOT PERFORMED COPIES/ML HIV-1 VIRAL LOG (test code = 82881) TEST NOT PERFORMED LOGCOPIES/ML Delfino F AustinHIV-1 QUANT, [id number] 00:00:00* Test Item Value Reference Range Interpretation Comme nts HIV-1 VIRAL COPY (test code = 4141) TEST NOT PERFORMED COPIES/ML HIV-1 VIRAL LOG (test code = 85321) TEST NOT PERFORMED LOGCOPIES/ML Delfino F AustinHIV-1 QUANT, [id number] 00:00:00* Test Item Value Reference Range Interpretation Comme nts HIV-1 VIRAL COPY (test code = 4141) TEST NOT PERFORMED COPIES/ML HIV-1 VIRAL LOG (test code = 17742) TEST NOT PERFORMED LOGCOPIES/ML Delfino F AustinHIV-1 QUANT, [id number] 00:00:00* Test Item Value Reference Range Interpretation Comme nts HIV-1 VIRAL COPY (test code = 4141) TEST NOT PERFORMED COPIES/ML HIV-1 VIRAL LOG (test code = 24295) TEST NOT PERFORMED LOGCOPIES/ML Delfino F AustinHIV-1 QUANT, [id number] 00:00:00* Test Item Value Reference Range Interpretation Comme nts HIV-1 VIRAL COPY (test code = 4141) TEST NOT PERFORMED COPIES/ML HIV-1 VIRAL LOG (test code = 77175) TEST NOT PERFORMED LOGCOPIES/ML Delfino F AustinHIV-1 QUANT, [id number] 00:00:00* Test Item Value Reference Range Interpretation Comme nts HIV-1 VIRAL COPY (test code = 4141) TEST NOT PERFORMED COPIES/ML HIV-1 VIRAL LOG (test code = 38552) TEST NOT PERFORMED LOGCOPIES/ML Delfino F AustinHIV-1 QUANT, [id number] 00:00:00* Test Item Value Reference Range Interpretation Comme nts HIV-1 VIRAL COPY (test code = 4141) TEST NOT PERFORMED COPIES/ML HIV-1 VIRAL LOG (test code = 11901) TEST NOT PERFORMED LOGCOPIES/ML Delfino F AustinHIV-1 QUANT, [id number] 00:00:00* Test Item Value Reference Range Interpretation Comme [facility] HIV-1 VIRAL COPY (test code = 4141) TEST NOT PERFORMED COPIES/ML HIV-1 VIRAL LOG (test code = 05722) TEST NOT PERFORMED LOGCOPIES/ML Delfino Endy AustinHIV-1 QUANT, [id number] 00:00:00* Test Item Value Reference Range Interpretation Comme nts HIV-1 VIRAL COPY (test code = 4141) TEST NOT PERFORMED COPIES/ML HIV-1 VIRAL LOG (test code = 09033) TEST NOT PERFORMED LOGCOPIES/ML Delfino F AustinHIV-1 QUANT, [id number] 00:00:00* Test Item Value Reference Range Interpretation Comme nts HIV-1 VIRAL COPY (test code = 4141) TEST NOT PERFORMED COPIES/ML HIV-1 VIRAL LOG (test code = 75954) TEST NOT PERFORMED LOGCOPIES/ML Delfino F AustinHIV-1 QUANT, [id number] 00:00:00* Test Item Value Reference Range Interpretation Comme nts HIV-1 VIRAL COPY (test code = 4141) TEST NOT PERFORMED COPIES/ML HIV-1 VIRAL LOG (test code = 81462) TEST NOT PERFORMED LOGCOPIES/ML Delfino F AustinHIV-1 QUANT, [id number] 00:00:00* Test Item Value Reference Range Interpretation Comme nts HIV-1 VIRAL COPY (test code = 4141) TEST NOT PERFORMED COPIES/ML HIV-1 VIRAL LOG (test code = 64124) TEST NOT PERFORMED LOGCOPIES/ML Delfino Endy OrtaCD4/CD8 LYMPHOCYTE [id number] 15:06:04* Test Item Value Reference Range Interpretation Comme nts ABSOLUTE LYMPHOCYTES (test code = 59572) 1180 PER UL 7435-2700 PERCENT CD4 (test code = 83443) 20.9 % 34.0-65.0 L ABSOLUTE CD4 (test code = 74305) 247 PER UL 520-1470 L PERCENT CD8 (test code = 63118) 56.8 % 13.0-38.0 H ABSOLUTE CD8 (test code = 13278) 670 PER UL 205-920 CD4/CD8 RATIO (test code = 78331) 0.37 0.92-3.41 L UNLESS OTHERWISE INDICATED, ALL TESTING PERFORMED AT [facility] [address] [place] [id number] REGULATORY SPECIALIST: ABBI SHORT M.D. CLIA NUMBER [id number] [facility]. [id number] CD4/CD8 LYMPHOCYTE [id number] 00:00:00* Test Item Value Reference Range Interpretation Comme nts ABSOLUTE LYMPHOCYTES (test c ode = 35199) 1180 PERUL PERCENT CD4 (test code = 53589) 20.9 % ABSOLUTE CD4 (test code = 30321) 247 PERUL PERCENT CD8 (test code = 91940) 56.8 % ABSOLUTE CD8 (test code = 90309) 670 PERUL CD4/CD8 RATIO (test code = 30677) 0.37 Delfino Schumacher AustinCD4/CD8 LYMPHOCYTE [id number] 00:00:00* Test Item Value Reference Range Interpretation Comme nts ABSOLUTE LYMPHOCYTES (test c ode = 42734) 1180 PERUL PERCENT CD4 (test code = 43139) 20.9 % ABSOLUTE CD4 (test code = 14799) 247 PERUL PERCENT CD8 (test code = 21769) 56.8 % ABSOLUTE CD8 (test code = 08701) 670 PERUL CD4/CD8 RATIO (test code = 46719) 0.37 Delfino Schumacher AustinCD4/CD8 LYMPHOCYTE [id number] 00:00:00* Test Item Value Reference Range Interpretation Comme nts ABSOLUTE LYMPHOCYTES (test c ode = 90113) 1180 PERUL PERCENT CD4 (test code = 64078) 20.9 % ABSOLUTE CD4 (test code = 01116) 247 PERUL PERCENT CD8 (test code = 12852) 56.8 % ABSOLUTE CD8 (test code = 92849) 670 PERUL CD4/CD8 RATIO (test code = 06403) 0.37 Delfino Schumacher AustinCD4/CD8 LYMPHOCYTE [id number] 00:00:00* Test Item Value Reference Range Interpretation Comme nts ABSOLUTE LYMPHOCYTES (test c ode = 25095) 1180 PERUL PERCENT CD4 (test code = 25441) 20.9 % ABSOLUTE CD4 (test code = 74413) 247 PERUL PERCENT CD8 (test code = 89727) 56.8 % ABSOLUTE CD8 (test code = 93774) 670 PERUL CD4/CD8 RATIO (test code = 12518) 0.37 Delfino Schumacher AustinCD4/CD8 LYMPHOCYTE [id number] 00:00:00* Test Item Value Reference Range Interpretation Comme nts ABSOLUTE LYMPHOCYTES (test c ode = 74152) 1180 PERUL PERCENT CD4 (test code = 03961) 20.9 % ABSOLUTE CD4 (test code = 51373) 247 PERUL PERCENT CD8 (test code = 07176) 56.8 % ABSOLUTE CD8 (test code = 37998) 670 PERUL CD4/CD8 RATIO (test code = 44153) 0.37 Delfino Schumacher AustinCD4/CD8 LYMPHOCYTE [id number] 00:00:00* Test Item Value Reference Range Interpretation Comme nts ABSOLUTE LYMPHOCYTES (test c ode = 26512) 1180 PERUL PERCENT CD4 (test code = 51365) 20.9 % ABSOLUTE CD4 (test code = 53880) 247 PERUL PERCENT CD8 (test code = 05206) 56.8 % ABSOLUTE CD8 (test code = 86364) 670 PERUL CD4/CD8 RATIO (test code = 78048) 0.37 Delfino Schumacher AustinCD4/CD8 LYMPHOCYTE [id number] 00:00:00* Test Item Value Reference Range Interpretation Comme nts ABSOLUTE LYMPHOCYTES (test c ode = 58427) 1180 PERUL PERCENT CD4 (test code = 04090) 20.9 % ABSOLUTE CD4 (test code = 68485) 247 PERUL PERCENT CD8 (test code = 59220) 56.8 % ABSOLUTE CD8 (test code = 74271) 670 PERUL CD4/CD8 RATIO (test code = 07345) 0.37 Delfino Schumacher AustinCD4/CD8 LYMPHOCYTE [id number] 00:00:00* Test Item Value Reference Range Interpretation Comme nts ABSOLUTE LYMPHOCYTES (test c ode = 66479) 1180 PERUL PERCENT CD4 (test code = 71792) 20.9 % ABSOLUTE CD4 (test code = 87830) 247 PERUL PERCENT CD8 (test code = 42731) 56.8 % ABSOLUTE CD8 (test code = 49793) 670 PERUL CD4/CD8 RATIO (test code = 80102) 0.37 Delfino Schumacher AustinCD4/CD8 LYMPHOCYTE [id number] 00:00:00* Test Item Value Reference Range Interpretation Comme nts ABSOLUTE LYMPHOCYTES (test c ode = 40100) 1180 PERUL PERCENT CD4 (test code = 45674) 20.9 % ABSOLUTE CD4 (test code = 73075) 247 PERUL PERCENT CD8 (test code = 18153) 56.8 % ABSOLUTE CD8 (test code = 91536) 670 PERUL CD4/CD8 RATIO (test code = 19350) 0.37 Delfino Schumacher AustinCD4/CD8 LYMPHOCYTE [id number] 00:00:00* Test Item Value Reference Range Interpretation Comme nts ABSOLUTE LYMPHOCYTES (test c ode = 71958) 1180 PERUL PERCENT CD4 (test code = 05558) 20.9 % ABSOLUTE CD4 (test code = 14149) 247 PERUL PERCENT CD8 (test code = 90457) 56.8 % ABSOLUTE CD8 (test code = 15139) 670 PERUL CD4/CD8 RATIO (test code = 24844) 0.37 Delfino Schumacher AustinCD4/CD8 LYMPHOCYTE [id number] 00:00:00* Test Item Value Reference Range Interpretation Comme nts ABSOLUTE LYMPHOCYTES (test c ode = 85765) 1180 PERUL PERCENT CD4 (test code = 70302) 20.9 % ABSOLUTE CD4 (test code = 09037) 247 PERUL PERCENT CD8 (test code = 40302) 56.8 % ABSOLUTE CD8 (test code = 60881) 670 PERUL CD4/CD8 RATIO (test code = 44036) 0.37 Delfino Schumacher AustinCD4/CD8 LYMPHOCYTE [id number] 00:00:00* Test Item Value Reference Range Interpretation Comme nts ABSOLUTE LYMPHOCYTES (test c ode = 96787) 1180 PERUL PERCENT CD4 (test code = 12229) 20.9 % ABSOLUTE CD4 (test code = 19694) 247 PERUL PERCENT CD8 (test code = 57143) 56.8 % ABSOLUTE CD8 (test code = 84416) 670 PERUL CD4/CD8 RATIO (test code = 03817) 0.37 Delfino Schumacher AustinCD4/CD8 LYMPHOCYTE [id number] 00:00:00* Test Item Value Reference Range Interpretation Comme nts ABSOLUTE LYMPHOCYTES (test c ode = 62543) 877 PERUL PERCENT CD4 (test code = 71406) 22.4 % ABSOLUTE CD4 (test code = 94491) 196 PERUL PERCENT CD8 (test code = 96988) 58.8 % ABSOLUTE CD8 (test code = 16694) 515 PERUL CD4/CD8 RATIO (test code = 72348) 0.38 Delfino OrtaHIV-1 QUANT, [id number] 00:00:00* Test Item Value Reference Range Interpretation Comme nts HIV-1 VIRAL COPY (test code = 4141) 619 COPIES/ML HIV-1 VIRAL LOG (test code = 69759) 2.792 LOGCOPIES/ML Delfino OrtaHEMOGLOBIN A1c [ADDED]2023-09-11 00:00:00* Test Item Value Reference Range Interpretation Comme nts HEMOGLOBIN A1c (test code = 47464) 5.6 % Delfino OrtaCBC W/AUTO [id number] 00:00:00* Test Item Value Reference Range Interpretation [...] ABS NUCLEATED RBCS (test cod e = 04706) 0.00 K/UL Delfino F AustinCOMPREHENSIVE METABOLIC [id number] 00:00:00* Test Item Value Reference Range Interpretation Comme nts GLUCOSE (test code = 2217) 83 MG/DL BUN (test code = 2208) 24 MG/DL CREATININE (test code = 2214) 1.32 MG/DL eGFR (2020 CKD-EPI) (test co de = 52011) 46 ML/MIN/1.73 CALC BUN/CREAT (test code = [...] 2219) 13 U/L Delfino Schumacher YouCD4/CD8 LYMPHOCYTE [id number] 00:00:00* Test Item Value Reference Range Interpretation Comme nts ABSOLUTE LYMPHOCYTES (test c ode = 05971) 877 PERUL PERCENT CD4 (test code = 37468) 22.4 % ABSOLUTE CD4 (test code = 91309) 196 PERUL PERCENT CD8 (test code = 24362) 58.8 % ABSOLUTE CD8 (test code = 17382) 515 PERUL CD4/CD8 RATIO (test code = 97200) 0.38 Delfino Schumacher YouHIV-1 QUANT, [id number] 00:00:00* Test Item Value Reference Range Interpretation Comme nts HIV-1 VIRAL COPY (test code = 4141) 619 COPIES/ML HIV-1 VIRAL LOG (test code = 02060) 2.792 LOGCOPIES/ML Delfino Schumacher YouHEMOGLOBIN A1c [ADDED]2023-09-11 00:00:00* Test Item Value Reference Range Interpretation Comme nts HEMOGLOBIN A1c (test code = 11820) 5.6 % Delfino OrtaCBC W/AUTO [id number] 00:00:00* Test Item Value Reference Range Interpretation [...] ABS NUCLEATED RBCS (test cod e = 05582) 0.00 K/UL Delfino OrtaCOMPREHENSIVE METABOLIC [id number] 00:00:00* Test Item Value Reference Range Interpretation Comme nts GLUCOSE (test code = 2217) 83 MG/DL BUN (test code = 2208) 24 MG/DL CREATININE (test code = 2214) 1.32 MG/DL eGFR (2020 CKD-EPI) (test co de = 86841) 46 ML/MIN/1.73 CALC BUN/CREAT (test code = [...] 2219) 13 U/L Delfino Schumacher YouCD4/CD8 LYMPHOCYTE [id number] 00:00:00* Test Item Value Reference Range Interpretation Comme nts ABSOLUTE LYMPHOCYTES (test c ode = 19489) 877 PERUL PERCENT CD4 (test code = 19656) 22.4 % ABSOLUTE CD4 (test code = 51627) 196 PERUL PERCENT CD8 (test code = 31822) 58.8 % ABSOLUTE CD8 (test code = 24639) 515 PERUL CD4/CD8 RATIO (test code = 43628) 0.38 Delfino Schumacher YouHIV-1 QUANT, [id number] 00:00:00* Test Item Value Reference Range Interpretation Comme [facility] HIV-1 VIRAL COPY (test code = 4141) 619 COPIES/ML HIV-1 VIRAL LOG (test code = 54077) 2.792 LOGCOPIES/ML Delfino Schumacher YouHEMOGLOBIN A1c [ADDED]2023-09-11 00:00:00* Test Item Value Reference Range Interpretation Comme nts HEMOGLOBIN A1c (test code = 61096) 5.6 % Delfino Schumacher YouCBC W/AUTO [id number] 00:00:00* Test Item Value Reference Range Interpretation [...] ABS NUCLEATED RBCS (test cod e = 99166) 0.00 K/UL Delfino OrtaCOMPREHENSIVE METABOLIC [id number] 00:00:00* Test Item Value Reference Range Interpretation Comme nts GLUCOSE (test code = 2217) 83 MG/DL BUN (test code = 2208) 24 MG/DL CREATININE (test code = 2214) 1.32 MG/DL eGFR (2020 CKD-EPI) (test co de = 49795) 46 ML/MIN/1.73 CALC BUN/CREAT (test code = [...] = 2219) 13 U/L Delfino OrtaCD4/CD8 LYMPHOCYTE [id number] 00:00:00* Test Item Value Reference Range Interpretation Comme nts ABSOLUTE LYMPHOCYTES (test c ode = 13048) 877 PERUL PERCENT CD4 (test code = 44080) 22.4 % ABSOLUTE CD4 (test code = 68850) 196 PERUL PERCENT CD8 (test code = 55296) 58.8 % ABSOLUTE CD8 (test code = 03896) 515 PERUL CD4/CD8 RATIO (test code = 39829) 0.38 Delfino OrtaHIV-1 QUANT, [id number] 00:00:00* Test Item Value Reference Range Interpretation Comme [facility] HIV-1 VIRAL COPY (test code = 4141) 619 COPIES/ML HIV-1 VIRAL LOG (test code = 44160) 2.792 LOGCOPIES/ML Delfino OrtaHEMOGLOBIN A1c [ADDED]2023-09-11 00:00:00* Test Item Value Reference Range Interpretation Comme nts HEMOGLOBIN A1c (test code = 12814) 5.6 % Delfino OrtaCBC W/AUTO [id number] 00:00:00* Test Item Value Reference Range Interpretation [...] ABS NUCLEATED RBCS (test cod e = 24076) 0.00 K/UL Delfino Schumacher YouCOMPREHENSIVE METABOLIC [id number] 00:00:00* Test Item Value Reference Range Interpretation Comme nts GLUCOSE (test code = 2217) 83 MG/DL BUN (test code = 2208) 24 MG/DL CREATININE (test code = 2214) 1.32 MG/DL eGFR (2020 CKD-EPI) (test co de = 02089) 46 ML/MIN/1.73 CALC BUN/CREAT (test code = [...] 2219) 13 U/L Delfino Schumacher YouCD4/CD8 LYMPHOCYTE [id number] 00:00:00* Test Item Value Reference Range Interpretation Comme nts ABSOLUTE LYMPHOCYTES (test c ode = 97149) 877 PERUL PERCENT CD4 (test code = 03894) 22.4 % ABSOLUTE CD4 (test code = 81434) 196 PERUL PERCENT CD8 (test code = 15164) 58.8 % ABSOLUTE CD8 (test code = 41645) 515 PERUL CD4/CD8 RATIO (test code = 26959) 0.38 Delfino OrtaHIV-1 QUANT, [id number] 00:00:00* Test Item Value Reference Range Interpretation Comme nts HIV-1 VIRAL COPY (test code = 4141) 619 COPIES/ML HIV-1 VIRAL LOG (test code = 00074) 2.792 LOGCOPIES/ML Delfino OrtaHEMOGLOBIN A1c [ADDED]2023-09-11 00:00:00* Test Item Value Reference Range Interpretation Comme nts HEMOGLOBIN A1c (test code = 43271) 5.6 % Delfino OrtaCBC W/AUTO [id number] 00:00:00* Test Item Value Reference Range Interpretation [...] ABS NUCLEATED RBCS (test cod e = 41896) 0.00 K/UL Delfino OrtaCOMPREHENSIVE METABOLIC [id number] 00:00:00* Test Item Value Reference Range Interpretation Comme nts GLUCOSE (test code = 2217) 83 MG/DL BUN (test code = 2208) 24 MG/DL CREATININE (test code = 2214) 1.32 MG/DL eGFR (2020 CKD-EPI) (test co de = 46702) 46 ML/MIN/1.73 CALC BUN/CREAT (test code = [...] = 2219) 13 U/L Delfino OrtaCD4/CD8 LYMPHOCYTE [id number] 00:00:00* Test Item Value Reference Range Interpretation Comme [facility] ABSOLUTE LYMPHOCYTES (test c ode = 03540) 877 PERUL PERCENT CD4 (test code = 04822) 22.4 % ABSOLUTE CD4 (test code = 26473) 196 PERUL PERCENT CD8 (test code = 37559) 58.8 % ABSOLUTE CD8 (test code = 16864) 515 PERUL CD4/CD8 RATIO (test code = 40252) 0.38 Delfino OrtaHIV-1 QUANT, [id number] 00:00:00* Test Item Value Reference Range Interpretation Comme nts HIV-1 VIRAL COPY (test code = 4141) 619 COPIES/ML HIV-1 VIRAL LOG (test code = 21874) 2.792 LOGCOPIES/ML Delfino OrtaHEMOGLOBIN A1c [ADDED]2023-09-11 00:00:00* Test Item Value Reference Range Interpretation Comme nts HEMOGLOBIN A1c (test code = 47161) 5.6 % Delfino OrtaCBC W/AUTO [id number] 00:00:00* Test Item Value Reference Range Interpretation [...] ABS NUCLEATED RBCS (test cod e = 99834) 0.00 K/UL Delfino OrtaCOMPREHENSIVE METABOLIC [id number] 00:00:00* Test Item Value Reference Range Interpretation Comme nts GLUCOSE (test code = 2217) 83 MG/DL BUN (test code = 2208) 24 MG/DL CREATININE (test code = 2214) 1.32 MG/DL eGFR (2020 CKD-EPI) (test co de = 36365) 46 ML/MIN/1.73 CALC BUN/CREAT (test code = [...] = 2219) 13 U/L Delfino OrtaCD4/CD8 LYMPHOCYTE [id number] 00:00:00* Test Item Value Reference Range Interpretation Comme nts ABSOLUTE LYMPHOCYTES (test c ode = 78836) 877 PERUL PERCENT CD4 (test code = 70806) 22.4 % ABSOLUTE CD4 (test code = 61690) 196 PERUL PERCENT CD8 (test code = 04459) 58.8 % ABSOLUTE CD8 (test code = 84464) 515 PERUL CD4/CD8 RATIO (test code = 85625) 0.38 Delfino OrtaHIV-1 QUANT, [id number] 00:00:00* Test Item Value Reference Range Interpretation Comme [facility] HIV-1 VIRAL COPY (test code = 4141) 619 COPIES/ML HIV-1 VIRAL LOG (test code = 88963) 2.792 LOGCOPIES/ML Delfino OrtaHEMOGLOBIN A1c [ADDED]2023-09-11 00:00:00* Test Item Value Reference Range Interpretation Comme nts HEMOGLOBIN A1c (test code = 63745) 5.6 % Delfino OrtaCBC W/AUTO [id number] 00:00:00* Test Item Value Reference Range Interpretation [...] ABS NUCLEATED RBCS (test cod e = 84980) 0.00 K/UL Delfino OrtaCOMPREHENSIVE METABOLIC [id number] 00:00:00* Test Item Value Reference Range Interpretation Comme nts GLUCOSE (test code = 2217) 83 MG/DL BUN (test code = 2208) 24 MG/DL CREATININE (test code = 2214) 1.32 MG/DL eGFR (2020 CKD-EPI) (test co de = 20946) 46 ML/MIN/1.73 CALC BUN/CREAT (test code = [...] = 2219) 13 U/L Delfino OrtaCD4/CD8 LYMPHOCYTE [id number] 00:00:00* Test Item Value Reference Range Interpretation Comme [facility] ABSOLUTE LYMPHOCYTES (test c ode = 03339) 877 PERUL PERCENT CD4 (test code = 73844) 22.4 % ABSOLUTE CD4 (test code = 46200) 196 PERUL PERCENT CD8 (test code = 08959) 58.8 % ABSOLUTE CD8 (test code = 24048) 515 PERUL CD4/CD8 RATIO (test code = 96348) 0.38 Delfino OrtaHIV-1 QUANT, [id number] 00:00:00* Test Item Value Reference Range Interpretation Comme [facility] HIV-1 VIRAL COPY (test code = 4141) 619 COPIES/ML HIV-1 VIRAL LOG (test code = 77779) 2.792 LOGCOPIES/ML Delfino OrtaHEMOGLOBIN A1c [ADDED]2023-09-11 00:00:00* Test Item Value Reference Range Interpretation Comme [facility] HEMOGLOBIN A1c (test code = 83612) 5.6 % Delfino OrtaCBC W/AUTO [id number] 00:00:00* Test Item Value Reference Range Interpretation [...] ABS NUCLEATED RBCS (test cod e = 58533) 0.00 K/UL Delfino Schumacher YouCOMPREHENSIVE METABOLIC [id number] 00:00:00* Test Item Value Reference Range Interpretation Comme nts GLUCOSE (test code = 2217) 83 MG/DL BUN (test code = 2208) 24 MG/DL CREATININE (test code = 2214) 1.32 MG/DL eGFR (2020 CKD-EPI) (test co de = 15525) 46 ML/MIN/1.73 CALC BUN/CREAT (test code = [...] 2219) 13 U/L Delfino Schumacher YouCD4/CD8 LYMPHOCYTE [id number] 00:00:00* Test Item Value Reference Range Interpretation Comme nts ABSOLUTE LYMPHOCYTES (test c ode = 55218) 877 PERUL PERCENT CD4 (test code = 30788) 22.4 % ABSOLUTE CD4 (test code = 19382) 196 PERUL PERCENT CD8 (test code = 55673) 58.8 % ABSOLUTE CD8 (test code = 46697) 515 PERUL CD4/CD8 RATIO (test code = 47318) 0.38 Delfino OrtaHIV-1 QUANT, [id number] 00:00:00* Test Item Value Reference Range Interpretation Comme nts HIV-1 VIRAL COPY (test code = 4141) 619 COPIES/ML HIV-1 VIRAL LOG (test code = 55504) 2.792 LOGCOPIES/ML Delfino OrtaHEMOGLOBIN A1c [ADDED]2023-09-11 00:00:00* Test Item Value Reference Range Interpretation Comme nts HEMOGLOBIN A1c (test code = 20481) 5.6 % Delfino OrtaCBC W/AUTO [id number] 00:00:00* Test Item Value Reference Range Interpretation [...] ABS NUCLEATED RBCS (test cod e = 49976) 0.00 K/UL Delfino OrtaCOMPREHENSIVE METABOLIC [id number] 00:00:00* Test Item Value Reference Range Interpretation Comme nts GLUCOSE (test code = 2217) 83 MG/DL BUN (test code = 2208) 24 MG/DL CREATININE (test code = 2214) 1.32 MG/DL eGFR (2020 CKD-EPI) (test co de = 98923) 46 ML/MIN/1.73 CALC BUN/CREAT (test code = 2235) 18 RATIO SODIUM (test code = 223) 140 MEQ/L POTASSIUM (test code = 2228) 4.4 MEQ/L CHLORIDE (test code = 2215) 108 MEQ/L CARBON DIOXIDE (test code = 2206) 19 MEQ/L CALCIUM (test code = 2209) 10.4 MG/DL PROTEIN, TOTAL (test code = 222) 8.6 G/DL ALBUMIN (test code = 2201) 4.7 G/DL CALC GLOBULIN (test code = 2240) 3.9 G/DL CALC A/G RATIO (test code = 2234) 1.2 RATIO BILIRUBIN, TOTAL (test code = 2207) 0.3 MG/DL ALKALINE PHOSPHATASE (test code = 2204) 83 U/L AST (test code = 2218) 24 U/L ALT (test code = 2219) 13 U/L Delfino Endy YouCD4/CD8 LYMPHOCYTE [id number] 00:00:00* Test Item Value Reference Range Interpretation Comme nts ABSOLUTE LYMPHOCYTES (test c ode = 62244) 877 PERUL PERCENT CD4 (test code = 64820) 22.4 % ABSOLUTE CD4 (test code = 57453) 196 PERUL PERCENT CD8 (test code = 86929) 58.8 % ABSOLUTE CD8 (test code = 97496) 515 PERUL CD4/CD8 RATIO (test code = 31941) 0.38 Delfino Endy YouHIV-1 QUANT, [id number] 00:00:00* Test Item Value Reference Range Interpretation Comme nts HIV-1 VIRAL COPY (test code = 4141) 619 COPIES/ML HIV-1 VIRAL LOG (test code = 16879) 2.792 LOGCOPIES/ML Delfino OrtaHEMOGLOBIN A1c [ADDED]2023-09-11 00:00:00* Test Item Value Reference Range Interpretation Comme nts HEMOGLOBIN A1c (test code = 40362) 5.6 % Delfino OrtaCBC W/AUTO [id number] 00:00:00* Test Item Value Reference Range Interpretation [...] ABS NUCLEATED RBCS (test cod e = 94685) 0.00 K/UL Delfino OrtaCOMPREHENSIVE METABOLIC [id number] 00:00:00* Test Item Value Reference Range Interpretation Comme nts GLUCOSE (test code = 2217) 83 MG/DL BUN (test code = 2208) 24 MG/DL CREATININE (test code = 2214) 1.32 MG/DL eGFR (2020 CKD-EPI) (test co de = 09797) 46 ML/MIN/1.73 CALC BUN/CREAT (test code = [...] = 2219) 13 U/L Delfino OrtaCD4/CD8 LYMPHOCYTE [id number] 00:00:00* Test Item Value Reference Range Interpretation Comme [facility] ABSOLUTE LYMPHOCYTES (test c ode = 19835) 877 PERUL PERCENT CD4 (test code = 27206) 22.4 % ABSOLUTE CD4 (test code = 22219) 196 PERUL PERCENT CD8 (test code = 73056) 58.8 % ABSOLUTE CD8 (test code = 53153) 515 PERUL CD4/CD8 RATIO (test code = 11569) 0.38 Delfino OrtaHIV-1 QUANT, [id number] 00:00:00* Test Item Value Reference Range Interpretation Comme [facility] HIV-1 VIRAL COPY (test code = 4141) 619 COPIES/ML HIV-1 VIRAL LOG (test code = 03482) 2.792 LOGCOPIES/ML Delfino OrtaHEMOGLOBIN A1c [ADDED]2023-09-11 00:00:00* Test Item Value Reference Range Interpretation Comme [facility] HEMOGLOBIN A1c (test code = 35589) 5.6 % Delfino OrtaCBC W/AUTO [id number] 00:00:00* Test Item Value Reference Range Interpretation [...] ABS NUCLEATED RBCS (test cod e = 66646) 0.00 K/UL Delfino OrtaCOMPREHENSIVE METABOLIC [id number] 00:00:00* Test Item Value Reference Range Interpretation Comme nts GLUCOSE (test code = 2217) 83 MG/DL BUN (test code = 2208) 24 MG/DL CREATININE (test code = 2214) 1.32 MG/DL eGFR (2020 CKD-EPI) (test co de = 22421) 46 ML/MIN/1.73 CALC BUN/CREAT (test code = [...] = 2219) 13 U/L Delfino OrtaCD4/CD8 LYMPHOCYTE [id number] 00:00:00* Test Item Value Reference Range Interpretation Comme carlito ABSOLUTE LYMPHOCYTES (test c ode = 68209) 877 PERUL PERCENT CD4 (test code = 73967) 22.4 % ABSOLUTE CD4 (test code = 57737) 196 PERUL PERCENT CD8 (test code = 68139) 58.8 % ABSOLUTE CD8 (test code = 54617) 515 PERUL CD4/CD8 RATIO (test code = 48718) 0.38 Delfino OrtaHIV-1 QUANT, [id number] 00:00:00* Test Item Value Reference Range Interpretation Comme carlito HIV-1 VIRAL COPY (test code = 4141) 619 COPIES/ML HIV-1 VIRAL LOG (test code = 65261) 2.792 LOGCOPIES/ML Delfino OrtaHEMOGLOBIN A1c [ADDED]2023-09-11 00:00:00* Test Item Value Reference Range Interpretation Comme carlito HEMOGLOBIN A1c (test code = 75411) 5.6 % Delfino OrtaCBC W/AUTO [id number] 00:00:00* Test Item Value Reference Range Interpretation [...] ABS NUCLEATED RBCS (test cod e = 59042) 0.00 K/UL Delfino Endy YouCOMPREHENSIVE METABOLIC [id number] 00:00:00* Test Item Value Reference Range Interpretation Comme nts GLUCOSE (test code = 2217) 83 MG/DL BUN (test code = 2208) 24 MG/DL CREATININE (test code = 2214) 1.32 MG/DL eGFR (2020 CKD-EPI) (test co de = 91465) 46 ML/MIN/1.73 CALC BUN/CREAT (test code = [...] 2219) 13 U/L Delfino Schumacher YouCD4/CD8 LYMPHOCYTE [id number] 00:00:00* Test Item Value Reference Range Interpretation Comme nts ABSOLUTE LYMPHOCYTES (test c ode = 09065) 877 PERUL PERCENT CD4 (test code = 95336) 22.4 % ABSOLUTE CD4 (test code = 67672) 196 PERUL PERCENT CD8 (test code = 56402) 58.8 % ABSOLUTE CD8 (test code = 12682) 515 PERUL CD4/CD8 RATIO (test code = 73747) 0.38 Delfino ConnollyV-1 QUANT, [id number] 00:00:00* Test Item Value Reference Range Interpretation Comme nts HIV-1 VIRAL COPY (test code = 4141) 619 COPIES/ML HIV-1 VIRAL LOG (test code = 87080) 2.792 LOGCOPIES/ML Delfino OrtaHEMOGLOBIN A1c [ADDED]2023-09-11 00:00:00* Test Item Value Reference Range Interpretation Comme nts HEMOGLOBIN A1c (test code = 84197) 5.6 % Delfino OrtaCBC W/AUTO [id number] 00:00:00* Test Item Value Reference Range Interpretation [...] ABS NUCLEATED RBCS (test cod e = 55334) 0.00 K/UL Delfino OrtaCOMPREHENSIVE METABOLIC [id number] 00:00:00* Test Item Value Reference Range Interpretation Comme nts GLUCOSE (test code = 2217) 83 MG/DL BUN (test code = 2208) 24 MG/DL CREATININE (test code = 2214) 1.32 MG/DL eGFR (2020 CKD-EPI) (test co de = 02257) 46 ML/MIN/1.73 CALC BUN/CREAT (test code = [...] = 2219) 13 U/L Delfino OrtaCD4/CD8 LYMPHOCYTE [id number] 00:00:00* Test Item Value Reference Range Interpretation Comme [facility] ABSOLUTE LYMPHOCYTES (test c ode = 48829) 877 PERUL PERCENT CD4 (test code = 27962) 22.4 % ABSOLUTE CD4 (test code = 39015) 196 PERUL PERCENT CD8 (test code = 91223) 58.8 % ABSOLUTE CD8 (test code = 95047) 515 PERUL CD4/CD8 RATIO (test code = 55710) 0.38 Delfino OrtaHIV-1 QUANT, [id number] 00:00:00* Test Item Value Reference Range Interpretation Comme [facility] HIV-1 VIRAL COPY (test code = 4141) 619 COPIES/ML HIV-1 VIRAL LOG (test code = 01197) 2.792 LOGCOPIES/ML Delfino OrtaHEMOGLOBIN A1c [ADDED]2023-09-11 00:00:00* Test Item Value Reference Range Interpretation Comme [facility] HEMOGLOBIN A1c (test code = 09245) 5.6 % Delfino OrtaCBC W/AUTO [id number] 00:00:00* Test Item Value Reference Range Interpretation [...] ABS NUCLEATED RBCS (test cod e = 14207) 0.00 K/UL Delfinosurinder OrtaCOMPREHENSIVE METABOLIC [id number] 00:00:00* Test Item Value Reference Range Interpretation Comme nts GLUCOSE (test code = 2217) 83 MG/DL BUN (test code = 2208) 24 MG/DL CREATININE (test code = 2214) 1.32 MG/DL eGFR (2020 CKD-EPI) (test co de = 14280) 46 ML/MIN/1.73 CALC BUN/CREAT (test code = [...] = 2219) 13 U/L Delfino OrtaCD4/CD8 LYMPHOCYTE [id number] 00:00:00* Test Item Value Reference Range Interpretation Comme nts ABSOLUTE LYMPHOCYTES (test c ode = 99844) 877 PERUL PERCENT CD4 (test code = 66624) 22.4 % ABSOLUTE CD4 (test code = 25554) 196 PERUL PERCENT CD8 (test code = 89363) 58.8 % ABSOLUTE CD8 (test code = 20125) 515 PERUL CD4/CD8 RATIO (test code = 80525) 0.38 Delfino OrtaHIV-1 QUANT, [id number] 00:00:00* Test Item Value Reference Range Interpretation Comme [facility] HIV-1 VIRAL COPY (test code = 4141) 619 COPIES/ML HIV-1 VIRAL LOG (test code = 42129) 2.792 LOGCOPIES/ML Delfino OrtaHEMOGLOBIN A1c [ADDED]2023-09-11 00:00:00* Test Item Value Reference Range Interpretation Comme nts HEMOGLOBIN A1c (test code = 35742) 5.6 % Delfino OrtaCBC W/AUTO [id number] 00:00:00* Test Item Value Reference Range Interpretation [...] ABS NUCLEATED RBCS (test cod e = 55773) 0.00 K/UL Delfino OrtaCOMPREHENSIVE METABOLIC [id number] 00:00:00* Test Item Value Reference Range Interpretation Comme nts GLUCOSE (test code = 2217) 83 MG/DL BUN (test code = 2208) 24 MG/DL CREATININE (test code = 2214) 1.32 MG/DL eGFR (2020 CKD-EPI) (test co de = 51027) 46 ML/MIN/1.73 CALC BUN/CREAT (test code = [...] ALT (test code = 2219) 13 U/L Delfnio OrtaCD4/CD8 LYMPHOCYTE [id number] 00:00:00* Test Item Value Reference Range Interpretation Comme nts ABSOLUTE LYMPHOCYTES (test c ode = 35715) 877 PERUL PERCENT CD4 (test code = 92725) 22.4 % ABSOLUTE CD4 (test code = 54013) 196 PERUL PERCENT CD8 (test code = 81361) 58.8 % ABSOLUTE CD8 (test code = 89344) 515 PERUL CD4/CD8 RATIO (test code = 30728) 0.38 Delfino OrtaHIV-1 QUANT, [id number] 00:00:00* Test Item Value Reference Range Interpretation Comme [facility] HIV-1 VIRAL COPY (test code = 4141) 619 COPIES/ML HIV-1 VIRAL LOG (test code = 87630) 2.792 LOGCOPIES/ML Delfino OrtaHEMOGLOBIN A1c [ADDED]2023-09-11 00:00:00* Test Item Value Reference Range Interpretation Comme [facility] HEMOGLOBIN A1c (test code = 79055) 5.6 % Delfino OrtaCBC W/AUTO [id number] 00:00:00* Test Item Value Reference Range Interpretation [...] ABS NUCLEATED RBCS (test cod e = 67709) 0.00 K/UL Delfino OrtaCOMPREHENSIVE METABOLIC [id number] 00:00:00* Test Item Value Reference Range Interpretation Comme nts GLUCOSE (test code = 2217) 83 MG/DL BUN (test code = 2208) 24 MG/DL CREATININE (test code = 2214) 1.32 MG/DL eGFR (2020 CKD-EPI) (test co de = 51776) 46 ML/MIN/1.73 CALC BUN/CREAT (test code = [...] (test code = 2219) 13 U/L Delfino SarmientoLTNIALL, [id number] 09:15:45SPECIMEN NUMBER: [id number] CULTURE, URINE SPECIMEN NUMBER: [id number] SPECIMEN COMMENT: URINE SOURCE: URINE REPORT STATUS: FINAL FINAL REPORT: 08/30/2023 10-100,000 CFU/ML MIXED MICROBIAL POPULATION PRESENT, NO PREDOMINATING ORGANISMS;PROBABLE CONTAMINANTS. UNLESS OTHERWISE INDICATED, ALL TESTING PERFORMED AT [facility] [address] [place] [address] REGULATORY SPECIALIST:ABBI SHORT M.D. CLIA NUMBER [id number] [place]. [id number], [id number] 00:00:00* Test Item Value Reference Range Interpretation Comme nts CULTURE, URINE (test code = 07180) SPECIMEN NUMBER: [id number] Delfino Cedeño [id number] 00:00:00* Test Item Value Reference Range Interpretation Comme nts CULTURE, URINE (test code = 59786) SPECIMEN NUMBER: [id number] Delfino Cedeño [id number] 00:00:00* Test Item Value Reference Range Interpretation Comme nts CULTURE, URINE (test code = 32303) SPECIMEN NUMBER: [id number] Delfino SarmientoLTNIALL [id number] 00:00:00* Test Item Value Reference Range Interpretation Comme nts CULTURE, URINE (test code = 70169) SPECIMEN NUMBER: [id number] Delfino SarmientoLTNIALL [id number] 00:00:00* Test Item Value Reference Range Interpretation Comme nts CULTURE, URINE (test code = 61518) SPECIMEN NUMBER: [id number] Delfino Cedeño [id number] 00:00:00* Test Item Value Reference Range Interpretation Comme nts CULTURE, URINE (test code = 01780) SPECIMEN NUMBER: [id number] Delfino SarmientoLTNIALL, [id number] 00:00:00* Test Item Value Reference Range Interpretation Comme nts CULTURE, URINE (test code = 50322) SPECIMEN NUMBER: [id number] Delfino Cedeño [id number] 00:00:00* Test Item Value Reference Range Interpretation Comme nts CULTURE, URINE (test code = 58201) SPECIMEN NUMBER: [id number] Delfino SarmientoLTNIALL, [id number] 00:00:00* Test Item Value Reference Range Interpretation Comme nts CULTURE, URINE (test code = 85377) SPECIMEN NUMBER: [id number] Delfino SarmientoLTNIALL, [id number] 00:00:00* Test Item Value Reference Range Interpretation Comme nts CULTURE, URINE (test code = 44771) SPECIMEN NUMBER: [id number] Delfino SarmientoLTNIALL, [id number] 00:00:00* Test Item Value Reference Range Interpretation Comme nts CULTURE, URINE (test code = 72063) SPECIMEN NUMBER: [id number] Delfino Cedeño [id number] 00:00:00* Test Item Value Reference Range Interpretation Comme nts CULTURE, URINE (test code = 65846) SPECIMEN NUMBER: [id number] Delfino Cedeño [id number] 00:00:00* Test Item Value Reference Range Interpretation Comme nts CULTURE, URINE (test code = 70665) SPECIMEN NUMBER: [id number] Delfino Cedeño, [id number] 00:00:00* Test Item Value Reference Range Interpretation Comme nts CULTURE, URINE (test code = 91291) SPECIMEN NUMBER: [id number] Delfino Cedeño [id number] 00:00:00* Test Item Value Reference Range Interpretation Comme nts CULTURE, URINE (test code = 91750) SPECIMEN NUMBER: [id number] Delfino Cedeño [id number] 00:00:00* Test Item Value Reference Range Interpretation Comme nts CULTURE, URINE (test code = 45898) SPECIMEN NUMBER: [id number] 00:00:00* Test Item Value Reference Range Interpretation Comme nts CULTURE, URINE (test code = 54761) SPECIMEN NUMBER: [id number] Delfino OrtaREFERRAL- REQUEST/[id number] 15:45:25Ordered by an unspecified provider.[facility] INTEGRASE INHIBITOR [id number] 11:03:25* Test Item Value Reference Range Interpretation Comments BICTEGRAVIR (test code = 338114) Susceptible CABOTEGRAVIR (test code = 926275) Susceptible DOLUTEGRAVIR (test code = 31525) Susceptible ELVITEGRAVIR (test code = 84540) Susceptible RALTEGRAVIR (test code = 28530) Susceptible DRUG RESIST MUTATIONS (test code = 502555) INSTI (test code = 21207) None ACC RESIST MUTATIONS (test code = 800218) ACCESSORY MUT: (test code = 33216) None OTHER MUTATIONS (test code = 521085) INSTI (test code = 93663) SEE BELOW HIV-1 SUBTYPE (test code = 978495) [place] HIVDB [place] (test code = 973392) HIVDB_9.6 Other Mutations (INSTI): S24G, A38R, L45S, [...] with the ARV. Methodology:Testing methodology is reverse clinical engineering manager polymerase chainreaction (RT-PCR) and next-generation sequencing (NGS) of theintegrase (IN) region of the HIV-1 polymerase ([place]) gene. HIV-1integrase inhibitor resistance mutations and associatedsusceptibility interpretations are assigned relative to the HIV-1subtype B consensus sequence utilizing the genotypic resistanceinterpretation algorithm of the [place] HIV Drug ResistanceDatabase (HIVDB). This test detects HIV-1 drug resistance mutations at a frequencyas low as 10%, which may account for differences in resistanceinterpretations between methods. Test results should be used andinterpreted in the context of clinical findings and other laboratorytest results. Disclaimer:This test was developed and its performance characteristicsdetermined by [facility] ([facility]). It has not beencleared or approved by the U.S. Food and Drug Administration (FDA).The FDA has determined that such clearance or approval is notnecessary. This test is used for clinical purposes and should not beregarded as investigational or for research. [facility] is qualified toperform high complexity testing under the Clinical LaboratoryImprovement Amendments (CLIA). TESTING PERFORMED AT [facility] [address] [place] [address], [address], [address] [address] CLIA NO: [id number] UNLESS OTHERWISE INDICATED, ALL TESTING PERFORMED AT [facility] [address] [place] [address] REGULATORY SPECIALIST: ABBI SHORT M.D. CLIA NUMBER [id number] [facility]. [id number] HIV-1 INTEGRASE INHIBITOR [id number] 00:00:00* Test Item Value Reference Range Interpretation Comme nts BICTEGRAVIR (test code = 029831) Susceptible CABOTEGRAVIR (test code = 969795) Susceptible DOLUTEGRAVIR (test code = 80362) Susceptible ELVITEGRAVIR (test code = 70221) Susceptible RALTEGRAVIR (test code = 81770) Susceptible DRUG RESIST MUTATIONS (test code = 173420) INSTI (test code = 69379) None ACC RESIST MUTATIONS (test c ode = 644368) ACCESSORY MUT: (test code = 28460) None OTHER MUTATIONS (test code = 198761) INSTI (test code = 92836) SEE BELOW HIV-1 SUBTYPE (test code = 240284) B [place] HIVDB [place] (test cod e = 522409) HIVDB_9.6 Delfino OrtaHIV-1 INTEGRASE INHIBITOR [id number] 00:00:00* Test Item Value Reference Range Interpretation Comme nts BICTEGRAVIR (test code = 076198) Susceptible CABOTEGRAVIR (test code = 390287) Susceptible DOLUTEGRAVIR (test code = 55211) Susceptible ELVITEGRAVIR (test code = 94396) Susceptible RALTEGRAVIR (test code = 42626) Susceptible DRUG RESIST MUTATIONS (test code = 098534) INSTI (test code = 47593) None ACC RESIST MUTATIONS (test c ode = 627308) ACCESSORY MUT: (test code = 62843) None OTHER MUTATIONS (test code = 738150) INSTI (test code = 29069) SEE BELOW HIV-1 SUBTYPE (test code = 922359) [place] HIVDB [place] (test cod e = 120974) HIVDB_9.6 Delfino Schumacher AustinHIV-1 INTEGRASE INHIBITOR [id number] 00:00:00* Test Item Value Reference Range Interpretation Comme nts BICTEGRAVIR (test code = 408613) Susceptible CABOTEGRAVIR (test code = 283023) Susceptible DOLUTEGRAVIR (test code = 18685) Susceptible ELVITEGRAVIR (test code = 95071) Susceptible RALTEGRAVIR (test code = 52028) Susceptible DRUG RESIST MUTATIONS (test code = 740822) INSTI (test code = 60793) None ACC RESIST MUTATIONS (test c ode = 291617) ACCESSORY MUT: (test code = 55001) None OTHER MUTATIONS (test code = 487304) INSTI (test code = 42383) SEE BELOW HIV-1 SUBTYPE (test code = 312663) [place] HIV[facility] [place] (test cod e = 879689) HIVDB_9.6 Delfino Schumacher AustinHIV-1 INTEGRASE INHIBITOR [id number] 00:00:00* Test Item Value Reference Range Interpretation Comme nts BICTEGRAVIR (test code = 791700) Susceptible CABOTEGRAVIR (test code = 707143) Susceptible DOLUTEGRAVIR (test code = 67963) Susceptible ELVITEGRAVIR (test code = 47661) Susceptible RALTEGRAVIR (test code = 48516) Susceptible DRUG RESIST MUTATIONS (test code = 164204) INSTI (test code = 93576) None ACC RESIST MUTATIONS (test c ode = 909565) ACCESSORY MUT: (test code = 39348) None OTHER MUTATIONS (test code = 897118) INSTI (test code = 10984) SEE BELOW HIV-1 SUBTYPE (test code = 941541) [place] HIVDB [place] (test cod e = 431989) HIVDB_9.6 Delfino Schumacher AustinHIV-1 INTEGRASE INHIBITOR [id number] 00:00:00* Test Item Value Reference Range Interpretation Comme nts BICTEGRAVIR (test code = 121539) Susceptible CABOTEGRAVIR (test code = 280114) Susceptible DOLUTEGRAVIR (test code = 08526) Susceptible ELVITEGRAVIR (test code = 68181) Susceptible RALTEGRAVIR (test code = 48138) Susceptible DRUG RESIST MUTATIONS (test code = 710431) INSTI (test code = 59923) None ACC RESIST MUTATIONS (test c ode = 938955) ACCESSORY MUT: (test code = 45442) None OTHER MUTATIONS (test code = 972186) INSTI (test code = 07748) SEE BELOW HIV-1 SUBTYPE (test code = 838498) [place] HIV[facility] [place] (test cod e = 891177) HIVDB_9.6 Delfino Schumacher AustinHIV-1 INTEGRASE INHIBITOR [id number] 00:00:00* Test Item Value Reference Range Interpretation Comme nts BICTEGRAVIR (test code = 300790) Susceptible CABOTEGRAVIR (test code = 383919) Susceptible DOLUTEGRAVIR (test code = 72581) Susceptible ELVITEGRAVIR (test code = 18237) Susceptible RALTEGRAVIR (test code = 00971) Susceptible DRUG RESIST MUTATIONS (test code = 554979) INSTI (test code = 97195) None ACC RESIST MUTATIONS (test c ode = 256250) ACCESSORY MUT: (test code = 89306) None OTHER MUTATIONS (test code = 101569) INSTI (test code = 05378) SEE BELOW HIV-1 SUBTYPE (test code = 642392) [place] HIV[facility] [place] (test cod e = 997152) HIVDB_9.6 Delfino Schumacher AustinHIV-1 INTEGRASE INHIBITOR [id number] 00:00:00* Test Item Value Reference Range Interpretation Comme nts BICTEGRAVIR (test code = 558636) Susceptible CABOTEGRAVIR (test code = 073025) Susceptible DOLUTEGRAVIR (test code = 41968) Susceptible ELVITEGRAVIR (test code = 52074) Susceptible RALTEGRAVIR (test code = 80648) Susceptible DRUG RESIST MUTATIONS (test code = 494342) INSTI (test code = 26425) None ACC RESIST MUTATIONS (test c ode = 431917) ACCESSORY MUT: (test code = 32220) None OTHER MUTATIONS (test code = 069319) INSTI (test code = 38794) SEE BELOW HIV-1 SUBTYPE (test code = 342658) [place] HIV[facility] [place] (test cod e = 763949) HIVDB_9.6 Delfino Schumacher AustinHIV-1 INTEGRASE INHIBITOR [id number] 00:00:00* Test Item Value Reference Range Interpretation Comme nts BICTEGRAVIR (test code = 919743) Susceptible CABOTEGRAVIR (test code = 462178) Susceptible DOLUTEGRAVIR (test code = 63232) Susceptible ELVITEGRAVIR (test code = 13618) Susceptible RALTEGRAVIR (test code = 77256) Susceptible DRUG RESIST MUTATIONS (test code = 206042) INSTI (test code = 76097) None ACC RESIST MUTATIONS (test c ode = 520239) ACCESSORY MUT: (test code = 35872) None OTHER MUTATIONS (test code = 163968) INSTI (test code = 45076) SEE BELOW HIV-1 SUBTYPE (test code = 648008) [place] HIVDB [place] (test cod e = 410976) HIVDB_9.6 Delfino Schumacher AustinHIV-1 INTEGRASE INHIBITOR [id number] 00:00:00* Test Item Value Reference Range Interpretation Comme nts BICTEGRAVIR (test code = 790196) Susceptible CABOTEGRAVIR (test code = 372194) Susceptible DOLUTEGRAVIR (test code = 83657) Susceptible ELVITEGRAVIR (test code = 10002) Susceptible RALTEGRAVIR (test code = 96454) Susceptible DRUG RESIST MUTATIONS (test code = 008203) INSTI (test code = 38526) None ACC RESIST MUTATIONS (test c ode = 422391) ACCESSORY MUT: (test code = 03433) None OTHER MUTATIONS (test code = 902562) INSTI (test code = 29867) SEE BELOW HIV-1 SUBTYPE (test code = 823076) [place] HIV[facility] [place] (test cod e = 813885) HIVDB_9.6 Delfino OrtaHIV-1 INTEGRASE INHIBITOR [id number] 00:00:00* Test Item Value Reference Range Interpretation Comme nts BICTEGRAVIR (test code = 870152) Susceptible CABOTEGRAVIR (test code = 284843) Susceptible DOLUTEGRAVIR (test code = 63391) Susceptible ELVITEGRAVIR (test code = 99044) Susceptible RALTEGRAVIR (test code = 50117) Susceptible DRUG RESIST MUTATIONS (test code = 794820) INSTI (test code = 67203) None ACC RESIST MUTATIONS (test c ode = 168639) ACCESSORY MUT: (test code = 05697) None OTHER MUTATIONS (test code = 056503) INSTI (test code = 48447) SEE BELOW HIV-1 SUBTYPE (test code = 727678) [place] HIV[facility] [place] (test cod e = 334190) HIVDB_9.6 Delfino Schumacher AustinHIV-1 INTEGRASE INHIBITOR [id number] 00:00:00* Test Item Value Reference Range Interpretation Comme nts BICTEGRAVIR (test code = 923353) Susceptible CABOTEGRAVIR (test code = 787342) Susceptible DOLUTEGRAVIR (test code = 20998) Susceptible ELVITEGRAVIR (test code = 80975) Susceptible RALTEGRAVIR (test code = 09939) Susceptible DRUG RESIST MUTATIONS (test code = 558381) INSTI (test code = 95251) None ACC RESIST MUTATIONS (test c ode = 850066) ACCESSORY MUT: (test code = 93824) None OTHER MUTATIONS (test code = 876982) INSTI (test code = 34468) SEE BELOW HIV-1 SUBTYPE (test code = 513079) [place] HIV[facility] [place] (test cod e = 591868) HIVDB_9.6 Delfino Schumacher AustinHIV-1 INTEGRASE INHIBITOR [id number] 00:00:00* Test Item Value Reference Range Interpretation Comme nts BICTEGRAVIR (test code = 655709) Susceptible CABOTEGRAVIR (test code = 504537) Susceptible DOLUTEGRAVIR (test code = 18066) Susceptible ELVITEGRAVIR (test code = 01121) Susceptible RALTEGRAVIR (test code = 89352) Susceptible DRUG RESIST MUTATIONS (test code = 378127) INSTI (test code = 45567) None ACC RESIST MUTATIONS (test c ode = 299427) ACCESSORY MUT: (test code = 40789) None OTHER MUTATIONS (test code = 165271) INSTI (test code = 18890) SEE BELOW HIV-1 SUBTYPE (test code = 266617) [place] HIV[facility] [place] (test cod e = 763997) HIVDB_9.6 Delfino Schumacher AustinHIV-1 INTEGRASE INHIBITOR [id number] 00:00:00* Test Item Value Reference Range Interpretation Comme nts BICTEGRAVIR (test code = 299640) Susceptible CABOTEGRAVIR (test code = 467610) Susceptible DOLUTEGRAVIR (test code = 43709) Susceptible ELVITEGRAVIR (test code = 79826) Susceptible RALTEGRAVIR (test code = 95081) Susceptible DRUG RESIST MUTATIONS (test code = 863673) INSTI (test code = 78508) None ACC RESIST MUTATIONS (test c ode = 663584) ACCESSORY MUT: (test code = 77366) None OTHER MUTATIONS (test code = 407852) INSTI (test code = 95906) SEE BELOW HIV-1 SUBTYPE (test code = 259420) [place] HIV[facility] [place] (test cod e = 540352) HIVDB_9.6 Delfino Schumacher AustinHIV-1 INTEGRASE INHIBITOR [id number] 00:00:00* Test Item Value Reference Range Interpretation Comme nts BICTEGRAVIR (test code = 533826) Susceptible CABOTEGRAVIR (test code = 625696) Susceptible DOLUTEGRAVIR (test code = 93585) Susceptible ELVITEGRAVIR (test code = 86990) Susceptible RALTEGRAVIR (test code = 80959) Susceptible DRUG RESIST MUTATIONS (test code = 201156) INSTI (test code = 48436) None ACC RESIST MUTATIONS (test c ode = 776772) ACCESSORY MUT: (test code = 78049) None OTHER MUTATIONS (test code = 004114) INSTI (test code = 04283) SEE BELOW HIV-1 SUBTYPE (test code = 957138) [place] HIVDB [facility] (test cod e = 448082) HIVDB_9.6 Delfino Schumacher AustinHIV-1 INTEGRASE INHIBITOR [id number] 00:00:00* Test Item Value Reference Range Interpretation Comme nts BICTEGRAVIR (test code = 793063) Susceptible CABOTEGRAVIR (test code = 730674) Susceptible DOLUTEGRAVIR (test code = 51825) Susceptible ELVITEGRAVIR (test code = 31946) Susceptible RALTEGRAVIR (test code = 02692) Susceptible DRUG RESIST MUTATIONS (test code = 098211) INSTI (test code = 23950) None ACC RESIST MUTATIONS (test c ode = 255073) ACCESSORY MUT: (test code = 38531) None OTHER MUTATIONS (test code = 061673) INSTI (test code = 77095) SEE BELOW HIV-1 SUBTYPE (test code = 665450) [place] HIVDB [facility] (test cod e = 945841) HIVDB_9.6 Delfino Schumacher AustinHIV-1 INTEGRASE INHIBITOR [id number] 00:00:00* Test Item Value Reference Range Interpretation Comme nts BICTEGRAVIR (test code = 073273) Susceptible CABOTEGRAVIR (test code = 487819) Susceptible DOLUTEGRAVIR (test code = 11556) Susceptible ELVITEGRAVIR (test code = 89724) Susceptible RALTEGRAVIR (test code = 88175) Susceptible DRUG RESIST MUTATIONS (test code = 498638) INSTI (test code = 80124) None ACC RESIST MUTATIONS (test c ode = 284919) ACCESSORY MUT: (test code = 56007) None OTHER MUTATIONS (test code = 374976) INSTI (test code = 61347) SEE BELOW HIV-1 SUBTYPE (test code = 421116) [place] HIVDB [facility] (test cod e = 486889) HIVDB_9.6 Delfino OrtaHIV-1 INTEGRASE INHIBITOR [id number] 00:00:00* Test Item Value Reference Range Interpretation Comme nts BICTEGRAVIR (test code = 398191) Susceptible CABOTEGRAVIR (test code = 053743) Susceptible DOLUTEGRAVIR (test code = 61995) Susceptible ELVITEGRAVIR (test code = 47793) Susceptible RALTEGRAVIR (test code = 84907) Susceptible DRUG RESIST MUTATIONS (test code = 984541) INSTI (test code = 04237) None ACC RESIST MUTATIONS (test c ode = 080940) ACCESSORY MUT: (test code = 71021) None OTHER MUTATIONS (test code = 665659) INSTI (test code = 46081) SEE BELOW HIV-1 SUBTYPE (test code = 158102) [place] HIV[facility] (test cod e = 311134) HIVDB_9.6 Delfino Schumacher AustinHIV-1 INTEGRASE INHIBITOR [id number] 00:00:00* Test Item Value Reference Range Interpretation Comme nts BICTEGRAVIR (test code = 125761) Susceptible CABOTEGRAVIR (test code = 575616) Susceptible DOLUTEGRAVIR (test code = 58824) Susceptible ELVITEGRAVIR (test code = 56585) Susceptible RALTEGRAVIR (test code = 80318) Susceptible DRUG RESIST MUTATIONS (test code = 384585) INSTI (test code = 85525) None ACC RESIST MUTATIONS (test c ode = 948056) ACCESSORY MUT: (test code = 48784) None OTHER MUTATIONS (test code = 129735) INSTI (test code = 96011) SEE BELOW HIV-1 SUBTYPE (test code = 946273) [place] HIVDB [facility] (test cod e = 795447) HIVDB_9.6 Delfino Schumacher AustinHIV-1 INTEGRASE INHIBITOR [id number] 00:00:00* Test Item Value Reference Range Interpretation Comme nts BICTEGRAVIR (test code = 605445) Susceptible CABOTEGRAVIR (test code = 700149) Susceptible DOLUTEGRAVIR (test code = 75314) Susceptible ELVITEGRAVIR (test code = 00931) Susceptible RALTEGRAVIR (test code = 57875) Susceptible DRUG RESIST MUTATIONS (test code = 010660) INSTI (test code = 54433) None ACC RESIST MUTATIONS (test c ode = 435210) ACCESSORY MUT: (test code = 41413) None OTHER MUTATIONS (test code = 472032) INSTI (test code = 72948) SEE BELOW HIV-1 SUBTYPE (test code = 541944) [place] HIV[facility] [place] (test cod e = 246665) HIVDB_9.6 Delfino Schumacher AustinHIV-1 INTEGRASE INHIBITOR [id number] 00:00:00* Test Item Value Reference Range Interpretation Comme nts BICTEGRAVIR (test code = 424504) Susceptible CABOTEGRAVIR (test code = 324732) Susceptible DOLUTEGRAVIR (test code = 59720) Susceptible ELVITEGRAVIR (test code = 53591) Susceptible RALTEGRAVIR (test code = 80326) Susceptible DRUG RESIST MUTATIONS (test code = 936483) INSTI (test code = 41717) None ACC RESIST MUTATIONS (test c ode = 369290) ACCESSORY MUT: (test code = 38531) None OTHER MUTATIONS (test code = 037406) INSTI (test code = 38433) SEE BELOW HIV-1 SUBTYPE (test code = 281745) [place] HIV[facility] (test cod e = 354218) HIVDB_9.6 Delfino Schumacher AustinHIV-1 INTEGRASE INHIBITOR [id number] 00:00:00* Test Item Value Reference Range Interpretation Comme nts BICTEGRAVIR (test code = 714383) Susceptible CABOTEGRAVIR (test code = 157402) Susceptible DOLUTEGRAVIR (test code = 98919) Susceptible ELVITEGRAVIR (test code = 28688) Susceptible RALTEGRAVIR (test code = 15479) Susceptible DRUG RESIST MUTATIONS (test code = 671306) INSTI (test code = 24215) None ACC RESIST MUTATIONS (test c ode = 363127) ACCESSORY MUT: (test code = 42955) None OTHER MUTATIONS (test code = 019808) INSTI (test code = 88191) SEE BELOW HIV-1 SUBTYPE (test code = 653074) [place] [facility] PRE[place] (test cod e = 226333) HIVDB_9.6 Delfino Schumacher [place]-1 INTEGRASE INHIBITOR [id number] 00:00:00* Test Item Value Reference Range Interpretation Comme nts BICTEGRAVIR (test code = 221437) Susceptible CABOTEGRAVIR (test code = 063267) Susceptible DOLUTEGRAVIR (test code = 01213) Susceptible ELVITEGRAVIR (test code = 50087) Susceptible RALTEGRAVIR (test code = 01358) Susceptible DRUG RESIST MUTATIONS (test code = 032377) INSTI (test code = 07700) None ACC RESIST MUTATIONS (test c ode = 625365) ACCESSORY MUT: (test code = 62700) None OTHER MUTATIONS (test code = 358563) INSTI (test code = 92714) SEE BELOW HIV-1 SUBTYPE (test code = 422122) [facility] [place] [facility] (test cod e = 001280) HIVDB_9.6 Delfino OrtaCD4/CD8 LYMPHOCYTE [id number] 12:40:38* Test Item Value Reference Range Interpretation Comme nts ABSOLUTE LYMPHOCYTES (test code = 85288) 941 PER UL [id number] L Specimen rec eived outside of temperature specifications. Resultsreviewed by Abbi Short M.D. PERCENT CD4 (test code = 42491) 16.3 % 34.0-65.0 L ABSOLUTE CD4 (test code = 64076) 154 PER UL 520-1470 L PERCENT CD8 (test code = 02443) 52.5 % 13.0-38.0 H ABSOLUTE CD8 (test code = 20433) 494 PER UL 205-920 CD4/CD8 RATIO (test code = 38485) 0.31 0.92-3.41 L CD4/CD8 LYMPHOCYTE [id number] 00:00:00* Test Item Value Reference Range Interpretation Comme nts ABSOLUTE LYMPHOCYTES (test c ode = 69552) 941 PERUL PERCENT CD4 (test code = 60954) 16.3 % ABSOLUTE CD4 (test code = 09903) 154 PERUL PERCENT CD8 (test code = 93918) 52.5 % ABSOLUTE CD8 (test code = 06170) 494 PERUL CD4/CD8 RATIO (test code = 29277) 0.31 Delfino OrtaCD4/CD8 LYMPHOCYTE [id number] 00:00:00* Test Item Value Reference Range Interpretation Comme nts ABSOLUTE LYMPHOCYTES (test c ode = 22831) 941 PERUL PERCENT CD4 (test code = 42345) 16.3 % ABSOLUTE CD4 (test code = 54757) 154 PERUL PERCENT CD8 (test code = 75646) 52.5 % ABSOLUTE CD8 (test code = 70466) 494 PERUL CD4/CD8 RATIO (test code = 25905) 0.31 Delfino Schumacher AustinCD4/CD8 LYMPHOCYTE [id number] 00:00:00* Test Item Value Reference Range Interpretation Comme nts ABSOLUTE LYMPHOCYTES (test c ode = 10445) 941 PERUL PERCENT CD4 (test code = 92915) 16.3 % ABSOLUTE CD4 (test code = 55087) 154 PERUL PERCENT CD8 (test code = 68482) 52.5 % ABSOLUTE CD8 (test code = 89349) 494 PERUL CD4/CD8 RATIO (test code = 81395) 0.31 Delfino F AustinCD4/CD8 LYMPHOCYTE [id number] 00:00:00* Test Item Value Reference Range Interpretation Comme nts ABSOLUTE LYMPHOCYTES (test c ode = 04910) 941 PERUL PERCENT CD4 (test code = 58354) 16.3 % ABSOLUTE CD4 (test code = 56858) 154 PERUL PERCENT CD8 (test code = 16851) 52.5 % ABSOLUTE CD8 (test code = 84789) 494 PERUL CD4/CD8 RATIO (test code = 77270) 0.31 Delfino Schumacher AustinCD4/CD8 LYMPHOCYTE [id number] 00:00:00* Test Item Value Reference Range Interpretation Comme nts ABSOLUTE LYMPHOCYTES (test c ode = 33959) 941 PERUL PERCENT CD4 (test code = 54340) 16.3 % ABSOLUTE CD4 (test code = 15096) 154 PERUL PERCENT CD8 (test code = 82120) 52.5 % ABSOLUTE CD8 (test code = 12855) 494 PERUL CD4/CD8 RATIO (test code = 63247) 0.31 Delfino Schumacher AustinCD4/CD8 LYMPHOCYTE [id number] 00:00:00* Test Item Value Reference Range Interpretation Comme nts ABSOLUTE LYMPHOCYTES (test c ode = 66891) 941 PERUL PERCENT CD4 (test code = 67924) 16.3 % ABSOLUTE CD4 (test code = 52361) 154 PERUL PERCENT CD8 (test code = 10658) 52.5 % ABSOLUTE CD8 (test code = 91197) 494 PERUL CD4/CD8 RATIO (test code = 96817) 0.31 Delfino Schumacher AustinCD4/CD8 LYMPHOCYTE [id number] 00:00:00* Test Item Value Reference Range Interpretation Comme nts ABSOLUTE LYMPHOCYTES (test c ode = 54212) 941 PERUL PERCENT CD4 (test code = 36066) 16.3 % ABSOLUTE CD4 (test code = 73760) 154 PERUL PERCENT CD8 (test code = 45699) 52.5 % ABSOLUTE CD8 (test code = 64032) 494 PERUL CD4/CD8 RATIO (test code = 47415) 0.31 Delfino Schumacher AustinCD4/CD8 LYMPHOCYTE [id number] 00:00:00* Test Item Value Reference Range Interpretation Comme nts ABSOLUTE LYMPHOCYTES (test c ode = 95150) 941 PERUL PERCENT CD4 (test code = 36030) 16.3 % ABSOLUTE CD4 (test code = 08992) 154 PERUL PERCENT CD8 (test code = 34584) 52.5 % ABSOLUTE CD8 (test code = 07128) 494 PERUL CD4/CD8 RATIO (test code = 08294) 0.31 Delfino Schumacher AustinCD4/CD8 LYMPHOCYTE [id number] 00:00:00* Test Item Value Reference Range Interpretation Comme nts ABSOLUTE LYMPHOCYTES (test c ode = 63190) 941 PERUL PERCENT CD4 (test code = 99912) 16.3 % ABSOLUTE CD4 (test code = 86252) 154 PERUL PERCENT CD8 (test code = 38852) 52.5 % ABSOLUTE CD8 (test code = 99042) 494 PERUL CD4/CD8 RATIO (test code = 35876) 0.31 Delfino Schumacher AustinCD4/CD8 LYMPHOCYTE [id number] 00:00:00* Test Item Value Reference Range Interpretation Comme nts ABSOLUTE LYMPHOCYTES (test c ode = 98507) 941 PERUL PERCENT CD4 (test code = 65361) 16.3 % ABSOLUTE CD4 (test code = 51172) 154 PERUL PERCENT CD8 (test code = 73769) 52.5 % ABSOLUTE CD8 (test code = 88980) 494 PERUL CD4/CD8 RATIO (test code = 82920) 0.31 Delfino Schumacher AustinCD4/CD8 LYMPHOCYTE [id number] 00:00:00* Test Item Value Reference Range Interpretation Comme nts ABSOLUTE LYMPHOCYTES (test c ode = 52318) 941 PERUL PERCENT CD4 (test code = 29652) 16.3 % ABSOLUTE CD4 (test code = 60052) 154 PERUL PERCENT CD8 (test code = 34781) 52.5 % ABSOLUTE CD8 (test code = 68515) 494 PERUL CD4/CD8 RATIO (test code = 90223) 0.31 Delfino Schumacher AustinCD4/CD8 LYMPHOCYTE [id number] 00:00:00* Test Item Value Reference Range Interpretation Comme nts ABSOLUTE LYMPHOCYTES (test c ode = 05144) 941 PERUL PERCENT CD4 (test code = 65407) 16.3 % ABSOLUTE CD4 (test code = 17716) 154 PERUL PERCENT CD8 (test code = 22910) 52.5 % ABSOLUTE CD8 (test code = 90858) 494 PERUL CD4/CD8 RATIO (test code = 02422) 0.31 Delfino Schumacher AustinCD4/CD8 LYMPHOCYTE [id number] 00:00:00* Test Item Value Reference Range Interpretation Comme nts ABSOLUTE LYMPHOCYTES (test c ode = 18503) 941 PERUL PERCENT CD4 (test code = 83847) 16.3 % ABSOLUTE CD4 (test code = 71419) 154 PERUL PERCENT CD8 (test code = 87734) 52.5 % ABSOLUTE CD8 (test code = 77083) 494 PERUL CD4/CD8 RATIO (test code = 80253) 0.31 Delfino Schumacher AustinCD4/CD8 LYMPHOCYTE [id number] 00:00:00* Test Item Value Reference Range Interpretation Comme nts ABSOLUTE LYMPHOCYTES (test c ode = 80480) 941 PERUL PERCENT CD4 (test code = 57907) 16.3 % ABSOLUTE CD4 (test code = 34674) 154 PERUL PERCENT CD8 (test code = 35203) 52.5 % ABSOLUTE CD8 (test code = 87092) 494 PERUL CD4/CD8 RATIO (test code = 53821) 0.31 Delfino Schumacher AustinCD4/CD8 LYMPHOCYTE [id number] 00:00:00* Test Item Value Reference Range Interpretation Comme nts ABSOLUTE LYMPHOCYTES (test c ode = 08540) 941 PERUL PERCENT CD4 (test code = 42858) 16.3 % ABSOLUTE CD4 (test code = 96104) 154 PERUL PERCENT CD8 (test code = 82806) 52.5 % ABSOLUTE CD8 (test code = 34176) 494 PERUL CD4/CD8 RATIO (test code = 03334) 0.31 Delfino Schumacher AustinCD4/CD8 LYMPHOCYTE [id number] 00:00:00* Test Item Value Reference Range Interpretation Comme nts ABSOLUTE LYMPHOCYTES (test c ode = 52473) 941 PERUL PERCENT CD4 (test code = 99527) 16.3 % ABSOLUTE CD4 (test code = 92887) 154 PERUL PERCENT CD8 (test code = 46262) 52.5 % ABSOLUTE CD8 (test code = 08740) 494 PERUL CD4/CD8 RATIO (test code = 08679) 0.31 Delfino Schumacher AustinCD4/CD8 LYMPHOCYTE [id number] 00:00:00* Test Item Value Reference Range Interpretation Comme nts ABSOLUTE LYMPHOCYTES (test c ode = 20575) 941 PERUL PERCENT CD4 (test code = 94002) 16.3 % ABSOLUTE CD4 (test code = 41789) 154 PERUL PERCENT CD8 (test code = 28070) 52.5 % ABSOLUTE CD8 (test code = 59839) 494 PERUL CD4/CD8 RATIO (test code = 08633) 0.31 Delfino Schumacher AustinCD4/CD8 LYMPHOCYTE [id number] 00:00:00* Test Item Value Reference Range Interpretation Comme nts ABSOLUTE LYMPHOCYTES (test c ode = 61430) 941 PERUL PERCENT CD4 (test code = 62320) 16.3 % ABSOLUTE CD4 (test code = 37937) 154 PERUL PERCENT CD8 (test code = 03316) 52.5 % ABSOLUTE CD8 (test code = 68831) 494 PERUL CD4/CD8 RATIO (test code = 27626) 0.31 Delfino Schumacher AustinCD4/CD8 LYMPHOCYTE [id number] 00:00:00* Test Item Value Reference Range Interpretation Comme nts ABSOLUTE LYMPHOCYTES (test c ode = 32354) 941 PERUL PERCENT CD4 (test code = 74499) 16.3 % ABSOLUTE CD4 (test code = 21117) 154 PERUL PERCENT CD8 (test code = 46110) 52.5 % ABSOLUTE CD8 (test code = 68272) 494 PERUL CD4/CD8 RATIO (test code = 50030) 0.31 Delfino Schumacher AustinCD4/CD8 LYMPHOCYTE [id number] 00:00:00* Test Item Value Reference Range Interpretation Comme nts ABSOLUTE LYMPHOCYTES (test c ode = 22487) 941 PERUL PERCENT CD4 (test code = 50494) 16.3 % ABSOLUTE CD4 (test code = 22404) 154 PERUL PERCENT CD8 (test code = 17475) 52.5 % ABSOLUTE CD8 (test code = 95261) 494 PERUL CD4/CD8 RATIO (test code = 99663) 0.31 Delfino Schumacher YouCD4/CD8 LYMPHOCYTE [id number] 00:00:00* Test Item Value Reference Range Interpretation Comme nts ABSOLUTE LYMPHOCYTES (test c ode = 56962) 941 PERUL PERCENT CD4 (test code = 91601) 16.3 % ABSOLUTE CD4 (test code = 43497) 154 PERUL PERCENT CD8 (test code = 21654) 52.5 % ABSOLUTE CD8 (test code = 07764) 494 PERUL CD4/CD8 RATIO (test code = 21668) 0.31 Delfino Schumacher YouCD4/CD8 LYMPHOCYTE [id number] 00:00:00* Test Item Value Reference Range Interpretation Comme nts ABSOLUTE LYMPHOCYTES (test c ode = 31344) 941 PERUL PERCENT CD4 (test code = 01536) 16.3 % ABSOLUTE CD4 (test code = 61239) 154 PERUL PERCENT CD8 (test code = 11658) 52.5 % ABSOLUTE CD8 (test code = 32099) 494 PERUL CD4/CD8 RATIO (test code = 96680) 0.31 Delfino F YouCBC W/AUTO DIFF WITH [id number] 11:40:06* Test Item Value Reference Range Interpretation [...] 0.00-0.10 ABS NUCLEATED RBCS (test code = 23455) 0.00 K/UL 0.00-0.11 COMMENTS (test code = 1016) (NOTE) MODERATE MACROCY TOSIS SLIGHT TOXIC GRANULATION PLATELETS APPEAR NORMAL SEE ADDITIONAL COMMENTS BELOW: SLIGHT VACUOLIZATION OF NEUTROPHILS COMPREHENSIVE METABOLIC [id number] 05:24:56* Test Item Value Reference Range Interpretation Comme nts GLUCOSE (test code = 2217) 90 MG/DL 70-99 BUN (test code = 2208) 40 MG/DL 8-23 H CREATININE (test code = 2214) 2.05 MG/DL 0.60-1.30 H eGFR (2020 CKD-EPI) (test co de = 53465) 27 ML/MIN/1.73 >60 L CALC BUN/CREAT (test code = 2234) 20 RATIO 6-28 SODIUM (test code = 2230) 144 MEQ/L 133-146 POTASSIUM (test code = 2227) 3.5 MEQ/L 3.5-5.4 CHLORIDE (test code = 2214) 110 MEQ/L 95-107 H CARBON DIOXIDE (test code = 2205) 18 MEQ/L 19-31 L CALCIUM (test code = 2208) 10.2 MG/DL 8.5-10.5 PROTEIN, TOTAL (test code = 2228) 8.5 G/DL 6.1-8.3 H ALBUMIN (test code = 2200) 4.5 G/DL 3.5-5.2 CALC GLOBULIN (test code = 224) 4.0 G/DL 1.9-3.7 H CALC A/G RATIO (test code = 2233) 1.1 RATIO 1.0-2.6 BILIRUBIN, TOTAL (test code = 2206) 0.3 MG/DL <=1.2 ALKALINE PHOSPHATASE (test code = 2203) 96 U/L 40-136 AST (test code = 2217) 28 U/L 9-40 ALT (test code = 2219) 16 U/L 5-40 LIPID [id number] 05:24:56* Test Item Value Reference Range Interpretation Comme nts CHOLESTEROL (test code = 2210) 212 MG/DL <200 H TRIGLYCERIDES (test code = 2231) 80 MG/DL <150 HDL CHOLESTEROL (test code = 2220) 102 MG/DL >39 CALC LDL CHOL (test code = 2237) 93 MG/DL <100 NOTE: CALCULATED LDL IS BASED ON CLOTILDE-STARKEY METHOD WHICHINCLUDES ADJUSTABLE TRIGLYCERIDE:VLDL CHOLESTEROL RATIO.THIS FACTOR VARIES BY MEASURED TRIGLYCERIDE AND NON-HDLCHOLESTEROL CONCENTRATIONS WITH INCREASED CALCULATED LDL SEENIN HIGHER TRIGLYCERIDE OR LOWER NON-HDL SPECIMENS. FOR MOREINFORMATION, SEE CLIENT ANNOUNCEMENT AT [email or web address] RISK RATIO LDL/HDL (test code = 2238) 0.91 RATIO <3.22 LIPID [id number] 00:00:00* Test Item Value Reference Range Interpretation Comme nts CHOLESTEROL (test code = 2210) 212 MG/DL TRIGLYCERIDES (test code = 2232) 80 MG/DL HDL CHOLESTEROL (test code = 2220) 102 MG/DL CALC LDL CHOL (test code = 2237) 93 MG/DL RISK RATIO LDL/HDL (test cod e = 2238) 0.91 RATIO Delfino OrtaCBC W/AUTO [id number] 00:00:00* Test Item Value Reference Range Interpretation [...] ABS NUCLEATED RBCS (test cod e = 74742) 0.00 K/UL COMMENTS (test code = 1016) (NOTE) Delfino Schumacher YouCOMPREHENSIVE METABOLIC [id number] 00:00:00* Test Item Value Reference Range Interpretation Comme nts GLUCOSE (test code = 2217) 90 MG/DL BUN (test code = 2208) 40 MG/DL CREATININE (test code = 2214) 2.05 MG/DL eGFR (2020 CKD-EPI) (test co de = 69034) 27 ML/MIN/1.73 CALC BUN/CREAT (test code = [...] code = 2219) 16 U/L Delfino OrtaLIPID [id number] 00:00:00* Test Item Value Reference Range Interpretation Comme nts CHOLESTEROL (test code = 2210) 212 MG/DL TRIGLYCERIDES (test code = 2232) 80 MG/DL HDL CHOLESTEROL (test code = 2220) 102 MG/DL CALC LDL CHOL (test code = 2237) 93 MG/DL RISK RATIO LDL/HDL (test cod e = 2238) 0.91 RATIO Delfino OrtaCBC W/AUTO [id number] 00:00:00* Test Item Value Reference Range Interpretation [...] ABS NUCLEATED RBCS (test cod e = 68606) 0.00 K/UL COMMENTS (test code = 1016) (NOTE) Delfino Endy YouCOMPREHENSIVE METABOLIC [id number] 00:00:00* Test Item Value Reference Range Interpretation Comme nts GLUCOSE (test code = 2217) 90 MG/DL BUN (test code = 2208) 40 MG/DL CREATININE (test code = 2214) 2.05 MG/DL eGFR (2020 CKD-EPI) (test co de = 87687) 27 ML/MIN/1.73 CALC BUN/CREAT (test code = [...] = 2219) 16 U/L Delfino Endy YouLIPID [id number] 00:00:00* Test Item Value Reference Range Interpretation Comme nts CHOLESTEROL (test code = 2210) 212 MG/DL TRIGLYCERIDES (test code = 2232) 80 MG/DL HDL CHOLESTEROL (test code = 2220) 102 MG/DL CALC LDL CHOL (test code = 2237) 93 MG/DL RISK RATIO LDL/HDL (test cod e = 2238) 0.91 RATIO Delfino OrtaCBC W/AUTO [id number] 00:00:00* Test Item Value Reference Range Interpretation [...] ABS NUCLEATED RBCS (test cod e = 55348) 0.00 K/UL COMMENTS (test code = 1016) (NOTE) Delfino OrtaCOMPREHENSIVE METABOLIC [id number] 00:00:00* Test Item Value Reference Range Interpretation Comme nts GLUCOSE (test code = 2217) 90 MG/DL BUN (test code = 2208) 40 MG/DL CREATININE (test code = 2214) 2.05 MG/DL eGFR (2020 CKD-EPI) (test co de = 22677) 27 ML/MIN/1.73 CALC BUN/CREAT (test code = [...] code = 2219) 16 U/L Delfino OrtaLIPID [id number] 00:00:00* Test Item Value Reference Range Interpretation Comme nts CHOLESTEROL (test code = 2210) 212 MG/DL TRIGLYCERIDES (test code = 2232) 80 MG/DL HDL CHOLESTEROL (test code = 2220) 102 MG/DL CALC LDL CHOL (test code = 2237) 93 MG/DL RISK RATIO LDL/HDL (test cod e = 2238) 0.91 RATIO Delfino Endy YouCBC W/AUTO [id number] 00:00:00* Test Item Value Reference Range Interpretation [...] ABS NUCLEATED RBCS (test cod e = 49166) 0.00 K/UL COMMENTS (test code = 1016) (NOTE) Delfino OrtaCOMPREHENSIVE METABOLIC [id number] 00:00:00* Test Item Value Reference Range Interpretation Comme nts GLUCOSE (test code = 2217) 90 MG/DL BUN (test code = 2208) 40 MG/DL CREATININE (test code = 2214) 2.05 MG/DL eGFR (2020 CKD-EPI) (test co de = 26551) 27 ML/MIN/1.73 CALC BUN/CREAT (test code = [...] code = 2219) 16 U/L Delfino OrtaLIPID [id number] 00:00:00* Test Item Value Reference Range Interpretation Comme nts CHOLESTEROL (test code = 2210) 212 MG/DL TRIGLYCERIDES (test code = 2232) 80 MG/DL HDL CHOLESTEROL (test code = 2220) 102 MG/DL CALC LDL CHOL (test code = 2237) 93 MG/DL RISK RATIO LDL/HDL (test cod e = 2238) 0.91 RATIO Delfino OrtaC W/AUTO [id number] 00:00:00* Test Item Value Reference Range Interpretation [...] ABS NUCLEATED RBCS (test cod e = 97188) 0.00 K/UL COMMENTS (test code = 1016) (NOTE) Delfino Schumacher YouCOMPREHENSIVE METABOLIC [id number] 00:00:00* Test Item Value Reference Range Interpretation Comme nts GLUCOSE (test code = 2217) 90 MG/DL BUN (test code = 2208) 40 MG/DL CREATININE (test code = 2214) 2.05 MG/DL eGFR (2020 CKD-EPI) (test co de = 73041) 27 ML/MIN/1.73 CALC BUN/CREAT (test code = [...] code = 2219) 16 U/L Delfino OrtaLIPID [id number] 00:00:00* Test Item Value Reference Range Interpretation Comme nts CHOLESTEROL (test code = 2210) 212 MG/DL TRIGLYCERIDES (test code = 2232) 80 MG/DL HDL CHOLESTEROL (test code = 2220) 102 MG/DL CALC LDL CHOL (test code = 2237) 93 MG/DL RISK RATIO LDL/HDL (test cod e = 2238) 0.91 RATIO Delfino Endy YouCBC W/AUTO [id number] 00:00:00* Test Item Value Reference Range Interpretation [...] ABS NUCLEATED RBCS (test cod e = 59003) 0.00 K/UL COMMENTS (test code = 1016) (NOTE) Delfino F YouCOMPREHENSIVE METABOLIC [id number] 00:00:00* Test Item Value Reference Range Interpretation Comme nts GLUCOSE (test code = 2217) 90 MG/DL BUN (test code = 2208) 40 MG/DL CREATININE (test code = 2214) 2.05 MG/DL eGFR (2020 CKD-EPI) (test co de = 87223) 27 ML/MIN/1.73 CALC BUN/CREAT (test code = [...] code = 2219) 16 U/L Delfino Schumacher YouLIPID [id number] 00:00:00* Test Item Value Reference Range Interpretation Comme nts CHOLESTEROL (test code = 2210) 212 MG/DL TRIGLYCERIDES (test code = 2232) 80 MG/DL HDL CHOLESTEROL (test code = 2220) 102 MG/DL CALC LDL CHOL (test code = 2237) 93 MG/DL RISK RATIO LDL/HDL (test cod e = 2238) 0.91 RATIO Delfino OrtaCBC W/AUTO [id number] 00:00:00* Test Item Value Reference Range Interpretation [...] ABS NUCLEATED RBCS (test cod e = 38588) 0.00 K/UL COMMENTS (test code = 1016) (NOTE) Delfino Schumacher YouCOMPREHENSIVE METABOLIC [id number] 00:00:00* Test Item Value Reference Range Interpretation Comme nts GLUCOSE (test code = 2217) 90 MG/DL BUN (test code = 2208) 40 MG/DL CREATININE (test code = 2214) 2.05 MG/DL eGFR (2020 CKD-EPI) (test co de = 30978) 27 ML/MIN/1.73 CALC BUN/CREAT (test code = [...] code = 2219) 16 U/L Delfino OrtaLIPID [id number] 00:00:00* Test Item Value Reference Range Interpretation Comme nts CHOLESTEROL (test code = 2210) 212 MG/DL TRIGLYCERIDES (test code = 2232) 80 MG/DL HDL CHOLESTEROL (test code = 2220) 102 MG/DL CALC LDL CHOL (test code = 2237) 93 MG/DL RISK RATIO LDL/HDL (test cod e = 2238) 0.91 RATIO Delfinosurinder OrtaCBC W/AUTO [id number] 00:00:00* Test Item Value Reference Range Interpretation [...] ABS NUCLEATED RBCS (test cod e = 31164) 0.00 K/UL COMMENTS (test code = 1016) (NOTE) Delfino Schumacher YouCOMPREHENSIVE METABOLIC [id number] 00:00:00* Test Item Value Reference Range Interpretation Comme nts GLUCOSE (test code = 2217) 90 MG/DL BUN (test code = 2208) 40 MG/DL CREATININE (test code = 2214) 2.05 MG/DL eGFR (2020 CKD-EPI) (test co de = 21496) 27 ML/MIN/1.73 CALC BUN/CREAT (test code = [...] code = 2219) 16 U/L Delfino Schumacher YouLIPID [id number] 00:00:00* Test Item Value Reference Range Interpretation Comme nts CHOLESTEROL (test code = 2210) 212 MG/DL TRIGLYCERIDES (test code = 2232) 80 MG/DL HDL CHOLESTEROL (test code = 2220) 102 MG/DL CALC LDL CHOL (test code = 2237) 93 MG/DL RISK RATIO LDL/HDL (test cod e = 2238) 0.91 RATIO [facility] [id number] 00:00:00* Test Item Value Reference Range Interpretation [...] ABS NUCLEATED RBCS (test cod e = 66144) 0.00 K/UL COMMENTS (test code = 1016) (NOTE) Delfino Schumacher YouCOMPREHENSIVE METABOLIC [id number] 00:00:00* Test Item Value Reference Range Interpretation Comme nts GLUCOSE (test code = 2217) 90 MG/DL BUN (test code = 2208) 40 MG/DL CREATININE (test code = 2214) 2.05 MG/DL eGFR (2020 CKD-EPI) (test co de = 46061) 27 ML/MIN/1.73 CALC BUN/CREAT (test code = [...] code = 2219) 16 U/L Delfino OrtaLIPID [id number] 00:00:00* Test Item Value Reference Range Interpretation Comme nts CHOLESTEROL (test code = 2210) 212 MG/DL TRIGLYCERIDES (test code = 2232) 80 MG/DL HDL CHOLESTEROL (test code = 2220) 102 MG/DL CALC LDL CHOL (test code = 2237) 93 MG/DL RISK RATIO LDL/HDL (test cod e = 2238) 0.91 RATIO Delfino Schumacher YouCBC W/AUTO [id number] 00:00:00* Test Item Value Reference Range Interpretation [...] ABS NUCLEATED RBCS (test cod e = 24085) 0.00 K/UL COMMENTS (test code = 1016) (NOTE) Delfino Schumacher YouCOMPREHENSIVE METABOLIC [id number] 00:00:00* Test Item Value Reference Range Interpretation Comme nts GLUCOSE (test code = 2217) 90 MG/DL BUN (test code = 2208) 40 MG/DL CREATININE (test code = 2214) 2.05 MG/DL eGFR (2020 CKD-EPI) (test co de = 35716) 27 ML/MIN/1.73 CALC BUN/CREAT (test code = [...] code = 2219) 16 U/L Delfino OrtaLIPID [id number] 00:00:00* Test Item Value Reference Range Interpretation Comme nts CHOLESTEROL (test code = 2210) 212 MG/DL TRIGLYCERIDES (test code = 2232) 80 MG/DL HDL CHOLESTEROL (test code = 2220) 102 MG/DL CALC LDL CHOL (test code = 2237) 93 MG/DL RISK RATIO LDL/HDL (test cod e = 2238) 0.91 RATIO Delfino OrtaCBC W/AUTO [id number] 00:00:00* Test Item Value Reference Range Interpretation [...] ABS NUCLEATED RBCS (test cod e = 13264) 0.00 K/UL COMMENTS (test code = 1016) (NOTE) Delfino Schumacher YouCOMPREHENSIVE METABOLIC [id number] 00:00:00* Test Item Value Reference Range Interpretation Comme nts GLUCOSE (test code = 2217) 90 MG/DL BUN (test code = 2208) 40 MG/DL CREATININE (test code = 2214) 2.05 MG/DL eGFR (2020 CKD-EPI) (test co de = 45389) 27 ML/MIN/1.73 CALC BUN/CREAT (test code = [...] code = 2219) 16 U/L Delfino OrtaLIPID [id number] 00:00:00* Test Item Value Reference Range Interpretation Comme nts CHOLESTEROL (test code = 2210) 212 MG/DL TRIGLYCERIDES (test code = 2232) 80 MG/DL HDL CHOLESTEROL (test code = 2220) 102 MG/DL CALC LDL CHOL (test code = 2237) 93 MG/DL RISK RATIO LDL/HDL (test cod e = 2238) 0.91 RATIO Delfino Schuamcher YouCBC W/AUTO [id number] 00:00:00* Test Item Value Reference Range Interpretation [...] ABS NUCLEATED RBCS (test cod e = 50500) 0.00 K/UL COMMENTS (test code = 1016) (NOTE) Delfino Schumacher YouCOMPREHENSIVE METABOLIC [id number] 00:00:00* Test Item Value Reference Range Interpretation Comme nts GLUCOSE (test code = 2217) 90 MG/DL BUN (test code = 2208) 40 MG/DL CREATININE (test code = 2214) 2.05 MG/DL eGFR (2020 CKD-EPI) (test co de = 93719) 27 ML/MIN/1.73 CALC BUN/CREAT (test code = [...] code = 2219) 16 U/L Delfino OrtaLIPID [id number] 00:00:00* Test Item Value Reference Range Interpretation Comme nts CHOLESTEROL (test code = 2210) 212 MG/DL TRIGLYCERIDES (test code = 2232) 80 MG/DL HDL CHOLESTEROL (test code = 2220) 102 MG/DL CALC LDL CHOL (test code = 2237) 93 MG/DL RISK RATIO LDL/HDL (test cod e = 2238) 0.91 RATIO Delfino OrtaCBC W/AUTO [id number] 00:00:00* Test Item Value Reference Range Interpretation [...] ABS NUCLEATED RBCS (test cod e = 66273) 0.00 K/UL COMMENTS (test code = 1016) (NOTE) Delfino Schumacher YouCOMPREHENSIVE METABOLIC [id number] 00:00:00* Test Item Value Reference Range Interpretation Comme nts GLUCOSE (test code = 2217) 90 MG/DL BUN (test code = 2208) 40 MG/DL CREATININE (test code = 2214) 2.05 MG/DL eGFR (2020 CKD-EPI) (test co de = 29959) 27 ML/MIN/1.73 CALC BUN/CREAT (test code = [...] code = 2219) 16 U/L Delfino Schumacher YouLIPID [id number] 00:00:00* Test Item Value Reference Range Interpretation Comme nts CHOLESTEROL (test code = 2210) 212 MG/DL TRIGLYCERIDES (test code = 2232) 80 MG/DL HDL CHOLESTEROL (test code = 2220) 102 MG/DL CALC LDL CHOL (test code = 2237) 93 MG/DL RISK RATIO LDL/HDL (test cod e = 2238) 0.91 RATIO Delfino OrtaCBC W/AUTO [id number] 00:00:00* Test Item Value Reference Range Interpretation [...] ABS NUCLEATED RBCS (test cod e = 41987) 0.00 K/UL COMMENTS (test code = 1016) (NOTE) Delfino Schumacher YouCOMPREHENSIVE METABOLIC [id number] 00:00:00* Test Item Value Reference Range Interpretation Comme nts GLUCOSE (test code = 2217) 90 MG/DL BUN (test code = 2208) 40 MG/DL CREATININE (test code = 2214) 2.05 MG/DL eGFR (2020 CKD-EPI) (test co de = 68016) 27 ML/MIN/1.73 CALC BUN/CREAT (test code = [...] code = 2219) 16 U/L Delfino OrtaLIPID [id number] 00:00:00* Test Item Value Reference Range Interpretation Comme nts CHOLESTEROL (test code = 2210) 212 MG/DL TRIGLYCERIDES (test code = 2232) 80 MG/DL HDL CHOLESTEROL (test code = 2220) 102 MG/DL CALC LDL CHOL (test code = 2237) 93 MG/DL RISK RATIO LDL/HDL (test cod e = 2238) 0.91 RATIO Delfino OrtaCBC W/AUTO [id number] 00:00:00* Test Item Value Reference Range Interpretation [...] ABS NUCLEATED RBCS (test cod e = 19540) 0.00 K/UL COMMENTS (test code = 1016) (NOTE) Delfino Schumacher YouCOMPREHENSIVE METABOLIC [id number] 00:00:00* Test Item Value Reference Range Interpretation Comme nts GLUCOSE (test code = 2217) 90 MG/DL BUN (test code = 2208) 40 MG/DL CREATININE (test code = 2214) 2.05 MG/DL eGFR (2020 CKD-EPI) (test co de = 75722) 27 ML/MIN/1.73 CALC BUN/CREAT (test code = [...] code = 2219) 16 U/L Delfino OrtaLIPID [id number] 00:00:00* Test Item Value Reference Range Interpretation Comme nts CHOLESTEROL (test code = 2210) 212 MG/DL TRIGLYCERIDES (test code = 2232) 80 MG/DL HDL CHOLESTEROL (test code = 2220) 102 MG/DL CALC LDL CHOL (test code = 2237) 93 MG/DL RISK RATIO LDL/HDL (test cod e = 2238) 0.91 RATIO Delfino Endy YouCBC W/AUTO [id number] 00:00:00* Test Item Value Reference Range Interpretation [...] ABS NUCLEATED RBCS (test cod e = 30806) 0.00 K/UL COMMENTS (test code = 1016) (NOTE) Delfino Schumacher YouCOMPREHENSIVE METABOLIC [id number] 00:00:00* Test Item Value Reference Range Interpretation Comme nts GLUCOSE (test code = 2217) 90 MG/DL BUN (test code = 2208) 40 MG/DL CREATININE (test code = 2214) 2.05 MG/DL eGFR (2020 CKD-EPI) (test co de = 85235) 27 ML/MIN/1.73 CALC BUN/CREAT (test code = [...] code = 2219) 16 U/L Delfino Schumacher YouLIPID [id number] 00:00:00* Test Item Value Reference Range Interpretation Comme nts CHOLESTEROL (test code = 2210) 212 MG/DL TRIGLYCERIDES (test code = 2232) 80 MG/DL HDL CHOLESTEROL (test code = 2220) 102 MG/DL CALC LDL CHOL (test code = 2237) 93 MG/DL RISK RATIO LDL/HDL (test cod e = 2238) 0.91 RATIO Delfino OrtaCBC W/AUTO [id number] 00:00:00* Test Item Value Reference Range Interpretation [...] ABS NUCLEATED RBCS (test cod e = 32149) 0.00 K/UL COMMENTS (test code = 1016) (NOTE) Delfino OrtaCOMPREHENSIVE METABOLIC [id number] 00:00:00* Test Item Value Reference Range Interpretation Comme nts GLUCOSE (test code = 2217) 90 MG/DL BUN (test code = 2208) 40 MG/DL CREATININE (test code = 2214) 2.05 MG/DL eGFR (2020 CKD-EPI) (test co de = 86310) 27 ML/MIN/1.73 CALC BUN/CREAT (test code = [...] code = 2219) 16 U/L Delfino OrtaLIPID [id number] 00:00:00* Test Item Value Reference Range Interpretation Comme nts CHOLESTEROL (test code = 2210) 212 MG/DL TRIGLYCERIDES (test code = 2232) 80 MG/DL HDL CHOLESTEROL (test code = 2220) 102 MG/DL CALC LDL CHOL (test code = 2237) 93 MG/DL RISK RATIO LDL/HDL (test cod e = 2238) 0.91 RATIO Delfino Schumacher YouCBC W/AUTO [id number] 00:00:00* Test Item Value Reference Range Interpretation [...] ABS NUCLEATED RBCS (test cod e = 61546) 0.00 K/UL COMMENTS (test code = 1016) (NOTE) Delfino Schumacher YouCOMPREHENSIVE METABOLIC [id number] 00:00:00* Test Item Value Reference Range Interpretation Comme nts GLUCOSE (test code = 2217) 90 MG/DL BUN (test code = 2208) 40 MG/DL CREATININE (test code = 2214) 2.05 MG/DL eGFR (2020 CKD-EPI) (test co de = 30862) 27 ML/MIN/1.73 CALC BUN/CREAT (test code = [...] code = 2219) 16 U/L Delfino OrtaLIPID [id number] 00:00:00* Test Item Value Reference Range Interpretation Comme nts CHOLESTEROL (test code = 2210) 212 MG/DL TRIGLYCERIDES (test code = 2232) 80 MG/DL HDL CHOLESTEROL (test code = 2220) 102 MG/DL CALC LDL CHOL (test code = 2237) 93 MG/DL RISK RATIO LDL/HDL (test cod e = 2238) 0.91 RATIO Delfino OrtaCBC W/AUTO [id number] 00:00:00* Test Item Value Reference Range Interpretation [...] ABS NUCLEATED RBCS (test cod e = 37126) 0.00 K/UL COMMENTS (test code = 1016) (NOTE) Delfino Schumacher YouCOMPREHENSIVE METABOLIC [id number] 00:00:00* Test Item Value Reference Range Interpretation Comme nts GLUCOSE (test code = 2217) 90 MG/DL BUN (test code = 2208) 40 MG/DL CREATININE (test code = 2214) 2.05 MG/DL eGFR (2020 CKD-EPI) (test co de = 19017) 27 ML/MIN/1.73 CALC BUN/CREAT (test code = [...] code = 2219) 16 U/L Delfino OrtaLIPID [id number] 00:00:00* Test Item Value Reference Range Interpretation Comme nts CHOLESTEROL (test code = 2210) 212 MG/DL TRIGLYCERIDES (test code = 2232) 80 MG/DL HDL CHOLESTEROL (test code = 2220) 102 MG/DL CALC LDL CHOL (test code = 2237) 93 MG/DL RISK RATIO LDL/HDL (test cod e = 2238) 0.91 RATIO Delfino OrtaCBC W/AUTO [id number] 00:00:00* Test Item Value Reference Range Interpretation [...] ABS NUCLEATED RBCS (test cod e = 22729) 0.00 K/UL COMMENTS (test code = 1016) (NOTE) Delfino OrtaCOMPREHENSIVE METABOLIC [id number] 00:00:00* Test Item Value Reference Range Interpretation Comme nts GLUCOSE (test code = 2217) 90 MG/DL BUN (test code = 2208) 40 MG/DL CREATININE (test code = 2214) 2.05 MG/DL eGFR (2020 CKD-EPI) (test co de = 51209) 27 ML/MIN/1.73 CALC BUN/CREAT (test code = [...] code = 2219) 16 U/L Delfino OrtaLIPID [id number] 00:00:00* Test Item Value Reference Range Interpretation Comme nts CHOLESTEROL (test code = 2210) 212 MG/DL TRIGLYCERIDES (test code = 2232) 80 MG/DL HDL CHOLESTEROL (test code = 2220) 102 MG/DL CALC LDL CHOL (test code = 2237) 93 MG/DL RISK RATIO LDL/HDL (test cod e = 2238) 0.91 RATIO Delfino OrtaCBC W/AUTO [id number] 00:00:00* Test Item Value Reference Range Interpretation [...] ABS NUCLEATED RBCS (test cod e = 06650) 0.00 K/UL COMMENTS (test code = 1016) (NOTE) Delfino OrtaCOMPREHENSIVE METABOLIC [id number] 00:00:00* Test Item Value Reference Range Interpretation Comme nts GLUCOSE (test code = 2217) 90 MG/DL BUN (test code = 2208) 40 MG/DL CREATININE (test code = 2214) 2.05 MG/DL eGFR (2020 CKD-EPI) (test co de = 38223) 27 ML/MIN/1.73 CALC BUN/CREAT (test code = [...] code = 2219) 16 U/L Delfino OrtaLIPID [id number] 00:00:00* Test Item Value Reference Range Interpretation Comme nts CHOLESTEROL (test code = 2210) 212 MG/DL TRIGLYCERIDES (test code = 2232) 80 MG/DL HDL CHOLESTEROL (test code = 2220) 102 MG/DL CALC LDL CHOL (test code = 2237) 93 MG/DL RISK RATIO LDL/HDL (test cod e = 2238) 0.91 RATIO Delfino Schumacher YouCBC W/AUTO [id number] 00:00:00* Test Item Value Reference Range Interpretation [...] ABS NUCLEATED RBCS (test cod e = 94203) 0.00 K/UL COMMENTS (test code = 1016) (NOTE) Delfino OrtaCOMPREHENSIVE METABOLIC [id number] 00:00:00* Test Item Value Reference Range Interpretation Comme nts GLUCOSE (test code = 2217) 90 MG/DL BUN (test code = 2208) 40 MG/DL CREATININE (test code = 2214) 2.05 MG/DL eGFR (2020 CKD-EPI) (test co de = 17969) 27 ML/MIN/1.73 CALC BUN/CREAT (test code = [...] (test code = 2219) 16 U/L Delfino Ortac with [id number] 19:43:14* Test Item Value Reference Range Interpretation [...] 33.6 g/dL 31.6-35.1 RDW-SD (test code = 80854-9) 54.3 fL 39.0-49.9 H RDW-CV (test code = 788-0) 13.4 % 12.0-15.5 PLT (test code = 777-3) 133 166-358 L MPV (test code = 74755-4) 11.5 fL 9.5-12.9 IPF % (test code = 9934049091) 5.6 % 1.3-7.7 Platelet count measured by fluorescence method. NRBC/100 WBC (test code = 1877100920) 0.0 0.0-10.0 NRBC x10^3 (test code = 7129062829) See_Comment [Automated Fastra ge] The system which generated this result transmitted reference range: 10*3/?L. The reference range was not used to interpret this result as normal/abnormal. GRAN MAT (NEUT) % (test code = 770-8) 91.9 % IMM GRAN % (test code = 9699444652) 0.30 % LYMPH % (test code = 736-9) 5.6 % MONO % (test code = 5905-5) 2.1 % EOS % (test code = 713-8) 0.0 % BASO % (test code = 706-2) 0.1 % GRAN MAT x10^3(ANC) (test code = 9662981747) 7.05 10*3/uL 1.88-7.09 IMM GRAN x10^3 (test code = 6941908835) 0.00-0.06 LYMPH x10^3 (test code = 731-0) 0.43 10*3/uL 1.32-3.29 L MONO x10^3 (test code = 742-7) 0.16 10*3/uL 0.33-0.92 L EOS x10^3 (test code = 711-2) 0.03-0.39 L BASO x10^3 (test code = 704-7) 0.01-0.07 Lab Interpretation (test code = 00414-7) [facility] (99136)2023-05-17 19:32:09* Test Item Value Reference Range Interpretation Comme nts NA (test code = 9237936337) 139 mmol/L 135-145 K (test code = 8795065960) 3.9 mmol/L 3.5-5.0 CL (test code = 0072096131) 115 mmol/L 98-108 H CO2 TOTAL (test code = 2965277279) 16 mmol/L 23-31 L AGAP (test code = 6607688715) 8 2-16 BUN (test code = 6792728065) 30 mg/dL 7-23 H GLUCOSE (test code = 1753930628) 173 mg/dL 70-110 H CREATININE (test code = 2160-0) 1.69 mg/dL 0.50-1.04 H TOTAL BILI (test code = 3550398312) 0.4 mg/dL 0.1-1.1 CALCIUM (test code = 2640794204) 10.1 mg/dL 8.6-10.6 T PROTEIN (test code = 7232959305) 8.5 g/dL 6.3-8.2 H ALBUMIN (test code = 5554449838) 3.9 g/dL 3.5-5.0 ALK PHOS (test code = 0421275550) 76 U/L 34-122 ALTv (test code = 1742-6) 35 U/L 5-35 AST(SGOT) (test code = 9508427098) 54 U/L 13-40 H eGFR (test code = 32636-0) 34.4 mL/min/1.73m2 CKD-EPI eGFR (2020). Assuming creatinine has been stable day-to-day for at least three months, the eGFR indicates Category G3b (30 - 44 mL/min/1.73 m2) Lab Interpretation (test code = 18083-7) [facility]normal [facility]E)2023-05-17 15:37:06* Test Item Value Reference Range Interpretation Comme nts Height (test code = 5939383785) 63 in Weight (test code = 3280457208) 140 lbs Systolic BP (test code = 1190110318) 118 mmHg Diastolic BP (test code = 6717909192) 58 mmHg Heart Rate (test code = 9685246543) 78 bpm BSA (test code = 7143041364) 1.66 m2 Ao root diam (test code = 3130894103) 2.90 cm Aortic root (test code = 6225612790) 2.9 cm Ao root annulus (test code = 2133709967) 2.9 cm LVOT diameter (test code = 9000435249) 1.96 cm LVOT area (test code = 7601024692) 3.00 cm2 LA size (test code = 7831650665) 3.2 cm LVIDD (test code = 0550442412) 2.90 cm Left Ventricular End Diastolic Volume by Teichholz Method (test code = 7030706) 32.6 mL IVS (test code = 7682405948) 1.26 cm Interventricular Septum Diastolic Thickness by 2D (test code = 4879044) 1.26 cm LVPWD (test code = 7917966898) 1.23 cm PW (test code = 8708855688) 1.23 cm 0.6-1.1 EF(Teich) (test code = 4834641960) 55.00 % LVIDS (test code = 5479519372) 2.11 cm Left Ventricular End Systolic Volume by Teichholz Method (test code = 1101279) 14.7 mL FS (test code = 6341250453) 27 % EF - 2D (test code = 54113271) 55.00 % LAV(MOD-sp4) (test code = 7611810731) 20.20 mL E wave decelartion time (test code = 3523494446) 0.18 s MV Peak E Barber (test code = 6938880583) 72.8 cm/s MV stenosis pressure 1/2 time (test code = 4541977569) 51.2 ms MV Peak A Barber (test code = 9246733281) 73.4 cm/s E/A ratio (test code = 5757232592) 0.99 ratio MV Prop V (test code = 9023808978) 180.80 cm/s MV E/e' septal (test code = 2753154099) 10.8 cm/s Tapse (test code = 5517426925) 2.08 cm LVOT stroke volume (test code = 4381275806) 73.30 cm3 LVOT peak barber (test code = 8500274027) 125.3 cm/s LVOT mn grad (test code = 4461662503) 3.6 mmHg AV LVOT peak gradient (test code = 8615739352) 6.3 mmHg LVOT peak VTI (test code = 4253430231) 24.3 cm LV V1 mean (test code = 3514569149) 89.60 cm/s Aortic valve mean velocity (test code = 3051015683) 236.9 cm/s Ao peak barber (test code = 4205897120) 333.6 cm/s Ao VTI (test code = 9763891122) 58.2 cm AV area by cont VTI (test code = 0508500093) 1.3 cm2 AV area peak barber (test code = 8485693393) 1.1 cm2 Ao max PG (test code = 4195432153) 44.60 mm[Hg] AV peak gradient (test code = 3415565727) 44.6 mmHg AV valve area (test code = 1441585910) 1.26 cm2 AV mean gradient (test code = 4923667694) 24.9 mmHg Radiology Study observation (narrative) (test code = 18589-6) GARRY (test code = GARRY) Table formatting [...] 2D, color flow Doppler and spectral Doppler. [facility] WITH [id number] 19:09:02* Test Item Value Reference Range Interpretation [...] 33.5 g/dL 31.6-35.1 RDW-SD (test code = 55751-5) 55.2 fL 39.0-49.9 H RDW-CV (test code = 788-0) 13.4 % 12.0-15.5 PLT (test code = 777-3) 142 166-358 L MPV (test code = 45401-2) 11.4 fL 9.5-12.9 NRBC/100 WBC (test code = 1516844422) 0.0 0.0-10.0 NRBC x10^3 (test code = 5616810850) See_Comment [Automated messa ge] The system which generated this result transmitted reference range: 10*3/?L. The reference range was not used to interpret this result as normal/abnormal. GRAN MAT (NEUT) % (test code = 770-8) 62.9 % IMM GRAN % (test code = 0335805347) 0.40 % LYMPH % (test code = 736-9) 27.3 % MONO % (test code = 5905-5) 9.0 % EOS % (test code = 713-8) 0.2 % BASO % (test code = 706-2) 0.2 % GRAN MAT x10^3(ANC) (test code = 3619397214) 3.30 10*3/uL 1.88-7.09 IMM GRAN x10^3 (test code = 8093020164) 0.00-0.06 LYMPH x10^3 (test code = 731-0) 1.43 10*3/uL 1.32-3.29 MONO x10^3 (test code = 742-7) 0.47 10*3/uL 0.33-0.92 EOS x10^3 (test code = 711-2) 0.03-0.39 L BASO x10^3 (test code = 704-7) 0.01-0.07 Lab Interpretation (test code = 64444-4) [id number]:52:52* Test Item Value Reference Range Interpretation Comme nts TROPONIN I (test code = 7453891199) 0.160 ng/mL <=0.034 H GARRY (test code [...] of biotin. Lab Interpretation (test code = 71667-3) Abnormal [facility]. METABOLIC PANEL (23792)2023-05-16 18:41:47* Test Item Value Reference Range Interpretation Comme nts NA (test code = 7135677696) 143 mmol/L 135-145 K (test code = 3686322066) 3.9 mmol/L 3.5-5.0 CL (test code = 6557622821) 116 mmol/L 98-108 H CO2 TOTAL (test code = 7436605452) 15 mmol/L 23-31 L AGAP (test code = 2304097540) 12 2-16 BUN (test code = 1206406108) 29 mg/dL 7-23 H GLUCOSE (test code = 7018701908) 104 mg/dL 70-110 CREATININE (test code = 2160-0) 1.90 mg/dL 0.50-1.04 H TOTAL BILI (test code = 3604456011) 0.5 mg/dL 0.1-1.1 CALCIUM (test code = 2998502522) 10.2 mg/dL 8.6-10.6 T PROTEIN (test code = 4713443509) 9.8 g/dL 6.3-8.2 H ALBUMIN (test code = 9547706528) 4.6 g/dL 3.5-5.0 ALK PHOS (test code = 8933559205) 103 U/L 34-122 ALTv (test code = 1742-6) 44 U/L 5-35 H AST(SGOT) (test code = 5827294918) 54 U/L 13-40 H eGFR (test code = 27697-1) 29.9 mL/min/1.73m2 Lab Interpretation (test cod e = 95716-3) [facility]normal [facility], [id number] 18:41:26* Test Item Value Reference Range Interpretation Comme nts LIPASE (test code = 3218788873) 123 U/L 0-220 Lab Interpretation (test cod e = 44166-2) Normal [facility] Venous Blood [id number] 18:29:21 * Test Item Value Reference Range Interpretation Comme nts PH (test code = 6764001001) 7.25 7.32-7.42 L PCO2 BEBA (test code = 8656818221) 40 41-51 L PO2 BEBA (test code = 9246199360) 27 25-40 HCO3 BEBA (test code = 8039725729) 17 24-28 L AC VBE(BEAKER) (test code = 2354064004) -9.3 mEq/L Lab Interpretation (test cod e = 25497-7) [facility]normal [facility] CHEST 1 [id number] 18:03:51HISTORY: Cough and SOB. TECHNIQUE: Portable AP [...] Acute findings could be secondary to viral infection.[facility], [id number] 08:50:21SPECIMEN NUMBER: [id number] CULTURE, URINE SPECIMEN NUMBER: [id number] SPECIMEN COMMENT: URINE SOURCE: URINE REPORT STATUS: FINAL FINAL REPORT: 05/11/2023 10-50,000 CFU/ML UROGENITAL KARLA PRESENT NO [facility]SC[facility], [id number] 00:00:00* Test Item Value Reference Range Interpretation Comme nts CULTURE, URINE (test code = 41471) SPECIMEN NUMBER: [id number] Delfino Schumacher YouCULTURE, [id number] 00:00:00* Test Item Value Reference Range Interpretation Comme nts CULTURE, URINE (test code = 42149) SPECIMEN NUMBER: [id number] Delfino Cedeño [id number] 00:00:00* Test Item Value Reference Range Interpretation Comme nts CULTURE, URINE (test code = 67365) SPECIMEN NUMBER: [id number] Delfino Cedeño [id number] 00:00:00* Test Item Value Reference Range Interpretation Comme nts CULTURE, URINE (test code = 04844) SPECIMEN NUMBER: [id number] Delfino Cedeño, [id number] 00:00:00* Test Item Value Reference Range Interpretation Comme nts CULTURE, URINE (test code = 56110) SPECIMEN NUMBER: [id number] Delfino Cedeño, [id number] 00:00:00* Test Item Value Reference Range Interpretation Comme nts CULTURE, URINE (test code = 43995) SPECIMEN NUMBER: [id number] Delfino Cedeño, [id number] 00:00:00* Test Item Value Reference Range Interpretation Comme nts CULTURE, URINE (test code = 38330) SPECIMEN NUMBER: [id number] Delfino Cedeño, [id number] 00:00:00* Test Item Value Reference Range Interpretation Comme nts CULTURE, URINE (test code = 76558) SPECIMEN NUMBER: [id number] Delfino Cedeño, [id number] 00:00:00* Test Item Value Reference Range Interpretation Comme nts CULTURE, URINE (test code = 89376) SPECIMEN NUMBER: [id number] Delfino Cedeño, [id number] 00:00:00* Test Item Value Reference Range Interpretation Comme nts CULTURE, URINE (test code = 45514) SPECIMEN NUMBER: [id number] Delfino Cedeño, [id number] 00:00:00* Test Item Value Reference Range Interpretation Comme nts CULTURE, URINE (test code = 61393) SPECIMEN NUMBER: [id number] Delfino Cedeño, [id number] 00:00:00* Test Item Value Reference Range Interpretation Comme nts CULTURE, URINE (test code = 85064) SPECIMEN NUMBER: [id number] Delfino Cedeño, [id number] 00:00:00* Test Item Value Reference Range Interpretation Comme nts CULTURE, URINE (test code = 52254) SPECIMEN NUMBER: [id number] Delfino Cedeño [id number] 00:00:00* Test Item Value Reference Range Interpretation Comme nts CULTURE, URINE (test code = 52948) SPECIMEN NUMBER: [id number] Delfino Cedeño [id number] 00:00:00* Test Item Value Reference Range Interpretation Comme nts CULTURE, URINE (test code = 88462) SPECIMEN NUMBER: [id number] Delfino Cedeño [id number] 00:00:00* Test Item Value Reference Range Interpretation Comme nts CULTURE, URINE (test code = 68750) SPECIMEN NUMBER: [id number] Delfino Cedeño, [id number] 00:00:00* Test Item Value Reference Range Interpretation Comme nts CULTURE, URINE (test code = 09072) SPECIMEN NUMBER: [id number] Delfino Cedeño, [id number] 00:00:00* Test Item Value Reference Range Interpretation Comme nts CULTURE, URINE (test code = 63457) SPECIMEN NUMBER: [id number] Delfino Cedeño, [id number] 00:00:00* Test Item Value Reference Range Interpretation Comme nts CULTURE, URINE (test code = 18117) SPECIMEN NUMBER: [id number] Delfino Cedeño, [id number] 00:00:00* Test Item Value Reference Range Interpretation Comme nts CULTURE, URINE (test code = 73071) SPECIMEN NUMBER: [id number] Delfino Cedeño, [id number] 00:00:00* Test Item Value Reference Range Interpretation Comme nts CULTURE, URINE (test code = 54972) SPECIMEN NUMBER: [id number] Delfino Cedeño, [id number] 00:00:00* Test Item Value Reference Range Interpretation Comme nts CULTURE, URINE (test code = 74613) SPECIMEN NUMBER: [id number] Delfino F AustinCULTURE, [id number] 00:00:00* Test Item Value Reference Range Interpretation Comme nts CULTURE, URINE (test code = 69856) SPECIMEN NUMBER: [id number] Delfino OrtaVAGINAL PATHOGENS DNA [id number] 14:05:30* Test Item Value Reference Range Interpretation Comme nts DIANNA SPECIES (test code = ) NEGATIVE NEGATIVE G. VAGINALIS (test code = 91274) NEGATIVE NEGATIVE T. VAGINALIS (test code = 61541) NEGATIVE NEGATIVE Note: [employer] VP[employer] Microbial Identification Testis a DNA probe test intended for use in the detectionand identification of Dianna species, Gardnerellavaginalis and Trichomonas vaginalis nucleic acid. CT/NG, NAAT, [id number] 12:17:23* Test Item Value Reference Range Interpretation Comme nts CHLAMYDIA, NAAT, URINE (test code = 02901) NEGATIVE NEGATIVE Testing is perfo rmed with Epifanio JOSE 6800/8800 systems usingreal-time polymerase chain reaction (PCR) method. A negative result does not exclude low level infection, specimensampling error, or collection error. GONORRHEA, NAAT, URINE (test code = 35376) NEGATIVE NEGATIVE Testing is perfo rmed with Epifanio JOSE 6800/8800 systems usingreal-time polymerase chain reaction (PCR) method. A negative result does not exclude low level infection, specimensampling error, or collection error. UNLESS OTHERWISE INDICATED, ALL TESTING PERFORMED AT [facility] [address] [place] [address] REGULATORY SPECIALIST: ABBI SHORT M.D. [place] NUMBER [id number] [facility] [place]. [id number] CT/NG, TMA, [id number] 00:00:00* Test Item Value Reference Range Interpretation Comme nts CHLAMYDIA, NAAT, URINE (test code = 52847) NEGATIVE GONORRHEA, NAAT, URINE (test code = 86421) NEGATIVE Delfino OrtaVAGINAL PATHOGENS DNA [id number] 00:00:00* Test Item Value Reference Range Interpretation Comme nts DIANNA SPECIES (test code = ) NEGATIVE G. VAGINALIS (test code = 27369) NEGATIVE T. VAGINALIS (test code = 96466) NEGATIVE Delfino OrtaCT/NG, TMA, [id number] 00:00:00* Test Item Value Reference Range Interpretation Comme nts CHLAMYDIA, NAAT, URINE (test code = 51317) NEGATIVE GONORRHEA, NAAT, URINE (test code = 36054) NEGATIVE Delfino Endy AustinCT/NG, TMA, [id number] 00:00:00* Test Item Value Reference Range Interpretation Comme nts CHLAMYDIA, NAAT, URINE (test code = 44115) NEGATIVE GONORRHEA, NAAT, URINE (test code = 19969) NEGATIVE Delfino Endy AustinVAGINAL PATHOGENS DNA [id number] 00:00:00* Test Item Value Reference Range Interpretation Comme nts DIANNA SPECIES (test code = ) NEGATIVE G. VAGINALIS (test code = 62603) NEGATIVE T. VAGINALIS (test code = 80977) NEGATIVE Delfino F AustinCT/NG, TMA, [id number] 00:00:00* Test Item Value Reference Range Interpretation Comme nts CHLAMYDIA, NAAT, URINE (test code = 84372) NEGATIVE GONORRHEA, NAAT, URINE (test code = 27781) NEGATIVE Delfino F AustinVAGINAL PATHOGENS DNA [id number] 00:00:00* Test Item Value Reference Range Interpretation Comme nts DIANNA SPECIES (test code = ) NEGATIVE G. VAGINALIS (test code = 13331) NEGATIVE T. VAGINALIS (test code = 67667) NEGATIVE Delfino F AustinCT/NG, TMA, [id number] 00:00:00* Test Item Value Reference Range Interpretation Comme nts CHLAMYDIA, NAAT, URINE (test code = 55820) NEGATIVE GONORRHEA, NAAT, URINE (test code = 46079) NEGATIVE Delfino F AustinVAGINAL PATHOGENS DNA [id number] 00:00:00* Test Item Value Reference Range Interpretation Comme nts DIANNA SPECIES (test code = ) NEGATIVE G. VAGINALIS (test code = 89571) NEGATIVE T. VAGINALIS (test code = 52334) NEGATIVE Delfino F AustinCT/NG, TMA, [id number] 00:00:00* Test Item Value Reference Range Interpretation Comme nts CHLAMYDIA, NAAT, URINE (test code = 29956) NEGATIVE GONORRHEA, NAAT, URINE (test code = 05545) NEGATIVE Delfino F AustinVAGINAL PATHOGENS DNA [id number] 00:00:00* Test Item Value Reference Range Interpretation Comme nts DIANNA SPECIES (test code = ) NEGATIVE G. VAGINALIS (test code = 53317) NEGATIVE T. VAGINALIS (test code = 93025) NEGATIVE Delfino Schumacher AustinCT/NG, TMA, [id number] 00:00:00* Test Item Value Reference Range Interpretation Comme nts CHLAMYDIA, NAAT, URINE (test code = 31715) NEGATIVE GONORRHEA, NAAT, URINE (test code = 30987) NEGATIVE Delfino Schumacher Austin[facility]AG[facility] PATHOGENS DNA [id number] 00:00:00* Test Item Value Reference Range Interpretation Comme nts DIANNA SPECIES (test code = ) NEGATIVE G. VAGINALIS (test code = 66253) NEGATIVE T. VAGINALIS (test code = 54336) NEGATIVE Delfino Schumacher AustinCT/NG, TMA, [id number] 00:00:00* Test Item Value Reference Range Interpretation Comme nts CHLAMYDIA, NAAT, URINE (test code = 26713) NEGATIVE GONORRHEA, NAAT, URINE (test code = 58144) NEGATIVE Delfino Schumacher AustinVAGINAL PATHOGENS DNA [id number] 00:00:00* Test Item Value Reference Range Interpretation Comme nts DIANNA SPECIES (test code = ) NEGATIVE G. VAGINALIS (test code = 32387) NEGATIVE T. VAGINALIS (test code = ) NEGATIVE Delfino Schumacher AustinCT/NG, TMA, [id number] 00:00:00* Test Item Value Reference Range Interpretation Comme nts CHLAMYDIA, NAAT, URINE (test code = 53332) NEGATIVE GONORRHEA, NAAT, URINE (test code = 42175) NEGATIVE Delfino Schumacher Austin[facility]AG[facility] PATHOGENS DNA [id number] 00:00:00* Test Item Value Reference Range Interpretation Comme nts DIANNA SPECIES (test code = ) NEGATIVE G. VAGINALIS (test code = 52983) NEGATIVE T. VAGINALIS (test code = 30289) NEGATIVE Delfino F AustinCT/NG, TMA, [id number] 00:00:00* Test Item Value Reference Range Interpretation Comme nts CHLAMYDIA, NAAT, URINE (test code = 13373) NEGATIVE GONORRHEA, NAAT, URINE (test code = 17101) NEGATIVE Delfino Endy AustinVAGINAL PATHOGENS DNA [id number] 00:00:00* Test Item Value Reference Range Interpretation Comme nts DIANNA SPECIES (test code = ) NEGATIVE G. VAGINALIS (test code = 99896) NEGATIVE T. VAGINALIS (test code = 97054) NEGATIVE Delfino Endy Austin[place], TMA, [id number] 00:00:00* Test Item Value Reference Range Interpretation Comme nts CHLAMYDIA, NAAT, URINE (test code = 78687) NEGATIVE GONORRHEA, NAAT, URINE (test code = 29233) NEGATIVE Delfino Endy AustinVAGINAL PATHOGENS DNA [id number] 00:00:00* Test Item Value Reference Range Interpretation Comme nts DIANNA SPECIES (test code = ) NEGATIVE G. VAGINALIS (test code = 47414) NEGATIVE T. VAGINALIS (test code = 93820) NEGATIVE Delfino Schumacher AustinCT/NG, TMA, [id number] 00:00:00* Test Item Value Reference Range Interpretation Comme nts CHLAMYDIA, NAAT, URINE (test code = 50684) NEGATIVE GONORRHEA, NAAT, URINE (test code = 75501) NEGATIVE Delfino Schumacher AustinVAGINAL PATHOGENS DNA [id number] 00:00:00* Test Item Value Reference Range Interpretation Comme nts DIANNA SPECIES (test code = ) NEGATIVE G. VAGINALIS (test code = 53151) NEGATIVE T. VAGINALIS (test code = 20610) NEGATIVE Delfino Schumacher AustinCT/NG, TMA, [id number] 00:00:00* Test Item Value Reference Range Interpretation Comme nts CHLAMYDIA, NAAT, URINE (test code = 34245) NEGATIVE GONORRHEA, NAAT, URINE (test code = 85137) NEGATIVE Delfino Endy AustinVAGINAL PATHOGENS DNA [id number] 00:00:00* Test Item Value Reference Range Interpretation Comme nts DIANNA SPECIES (test code = ) NEGATIVE G. VAGINALIS (test code = 69319) NEGATIVE T. VAGINALIS (test code = 50187) NEGATIVE Delfino F AustinCT/NG, TMA, [id number] 00:00:00* Test Item Value Reference Range Interpretation Comme nts CHLAMYDIA, NAAT, URINE (test code = 76147) NEGATIVE GONORRHEA, NAAT, URINE (test code = 90361) NEGATIVE Delfino F AustinVAGINAL PATHOGENS DNA [id number] 00:00:00* Test Item Value Reference Range Interpretation Comme nts DIANNA SPECIES (test code = ) NEGATIVE G. VAGINALIS (test code = 09956) NEGATIVE T. VAGINALIS (test code = 00772) NEGATIVE Delfino F AustinCT/NG, TMA, [id number] 00:00:00* Test Item Value Reference Range Interpretation Comme nts CHLAMYDIA, NAAT, URINE (test code = 40645) NEGATIVE GONORRHEA, NAAT, URINE (test code = 56904) NEGATIVE Delfino F AustinVAGINAL PATHOGENS DNA [id number] 00:00:00* Test Item Value Reference Range Interpretation Comme nts DIANNA SPECIES (test code = ) NEGATIVE G. VAGINALIS (test code = 83418) NEGATIVE T. VAGINALIS (test code = 03243) NEGATIVE Delfino F AustinCT/NG, TMA, [id number] 00:00:00* Test Item Value Reference Range Interpretation Comme nts CHLAMYDIA, NAAT, URINE (test code = 62064) NEGATIVE GONORRHEA, NAAT, URINE (test code = 81073) NEGATIVE Delfino F AustinVAGINAL PATHOGENS DNA [id number] 00:00:00* Test Item Value Reference Range Interpretation Comme nts DIANNA SPECIES (test code = ) NEGATIVE G. VAGINALIS (test code = 06057) NEGATIVE T. VAGINALIS (test code = 76210) NEGATIVE Delfino F AustinCT/NG, TMA, [id number] 00:00:00* Test Item Value Reference Range Interpretation Comme nts CHLAMYDIA, NAAT, URINE (test code = 25538) NEGATIVE GONORRHEA, NAAT, URINE (test code = 67939) NEGATIVE Delfino F AustinVAGINAL PATHOGENS DNA [id number] 00:00:00* Test Item Value Reference Range Interpretation Comme nts DIANNA SPECIES (test code = 18802) NEGATIVE G. VAGINALIS (test code = 85520) NEGATIVE T. VAGINALIS (test code = 98661) NEGATIVE Delfino F AustinCT/NG, TMA, [id number] 00:00:00* Test Item Value Reference Range Interpretation Comme nts CHLAMYDIA, NAAT, URINE (test code = 42217) NEGATIVE GONORRHEA, NAAT, URINE (test code = 86814) NEGATIVE Delfino Endy AustinVAGINAL PATHOGENS DNA [id number] 00:00:00* Test Item Value Reference Range Interpretation Comme nts DIANNA SPECIES (test code = 60516) NEGATIVE G. VAGINALIS (test code = 63938) NEGATIVE T. VAGINALIS (test code = 60276) NEGATIVE Delfino F AustinCT/NG, TMA, [id number] 00:00:00* Test Item Value Reference Range Interpretation Comme nts CHLAMYDIA, NAAT, URINE (test code = 41871) NEGATIVE GONORRHEA, NAAT, URINE (test code = 48233) NEGATIVE Delfino Endy AustinVAGINAL PATHOGENS DNA [id number] 00:00:00* Test Item Value Reference Range Interpretation Comme nts DIANNA SPECIES (test code = ) NEGATIVE G. VAGINALIS (test code = 82989) NEGATIVE T. VAGINALIS (test code = 93351) NEGATIVE Delfino F AustinCT/NG, TMA, [id number] 00:00:00* Test Item Value Reference Range Interpretation Comme nts CHLAMYDIA, NAAT, URINE (test code = 48011) NEGATIVE GONORRHEA, NAAT, URINE (test code = 85551) NEGATIVE Delfino Schumacher AustinVAGINAL PATHOGENS DNA [id number] 00:00:00* Test Item Value Reference Range Interpretation Comme nts DIANNA SPECIES (test code = ) NEGATIVE G. VAGINALIS (test code = 46898) NEGATIVE T. VAGINALIS (test code = 54977) NEGATIVE Delfino Schumacher AustinCT/NG, TMA, [id number] 00:00:00* Test Item Value Reference Range Interpretation Comme nts CHLAMYDIA, NAAT, URINE (test code = 07953) NEGATIVE GONORRHEA, NAAT, URINE (test code = 18870) NEGATIVE Delfino F AustinVAGINAL PATHOGENS DNA [id number] 00:00:00* Test Item Value Reference Range Interpretation Comme nts DIANNA SPECIES (test code = 64035) NEGATIVE G. VAGINALIS (test code = 74389) NEGATIVE T. VAGINALIS (test code = 76232) NEGATIVE Delfino F AustinCT/NG, TMA, [id number] 00:00:00* Test Item Value Reference Range Interpretation Comme nts CHLAMYDIA, NAAT, URINE (test code = 09423) NEGATIVE GONORRHEA, NAAT, URINE (test code = 16653) NEGATIVE Delfino OrtaVAGINAL PATHOGENS DNA [id number] 00:00:00* Test Item Value Reference Range Interpretation Comme nts DIANNA SPECIES (test code = 96738) NEGATIVE G. VAGINALIS (test code = 65817) NEGATIVE T. VAGINALIS (test code = 62888) NEGATIVE Delfino OrtaCT/NG, TMA, [id number] 00:00:00* Test Item Value Reference Range Interpretation Comme nts CHLAMYDIA, NAAT, URINE (test code = 12033) NEGATIVE GONORRHEA, NAAT, URINE (test code = 34260) NEGATIVE Delfino OrtaVAGINAL PATHOGENS DNA [id number] 00:00:00* Test Item Value Reference Range Interpretation Comme nts DIANNA SPECIES (test code = 45965) NEGATIVE G. VAGINALIS (test code = 20607) NEGATIVE T. VAGINALIS (test code = 39389) NEGATIVE Delfino Schumacher AustinVAGINAL PATHOGENS DNA [id number] 00:00:00* Test Item Value Reference Range Interpretation Comme nts DIANNA SPECIES (test code = 61752) NEGATIVE G. VAGINALIS (test code = 16476) NEGATIVE T. VAGINALIS (test code = 74257) NEGATIVE Delfino [id number] 20:25:19* Test Item Value Reference Range Interpretation Comme nts CALCIUM (test code = 2209) 10.6 MG/DL 8.5-10.5 H [id number] 20:25:10* Test Item Value Reference Range Interpretation Comme nts PHOSPHORUS (test code = 2227) 2.9 MG/DL 2.5-4.5 UNLESS OTHERWISE INDICATED, ALL TESTING PERFORMED AT [facility] [address] [place] [id number] REGULATORY SPECIALIST: ABBI SHORT M.D. CLIA NUMBER [id number] [facility]. [id number] CALCIUM, [id number] 09:33:19* Test Item Value Reference Range Interpretation Comme nts CALCIUM, IONIZED (test code = 34472) 5.50 MG/DL 4.70-5.90 INTACT [id number] 09:28:17* Test Item Value Reference Range Interpretation Comme nts INTACT PTH (test code = 5005) 60 PG/ML 15-65 [id number] 00:00:00* Test Item Value Reference Range Interpretation Comme nts CALCIUM (test code = 2209) 10.6 MG/DL Delfino Schumacher [id number] 00:00:00* Test Item Value Reference Range Interpretation Comme nts PHOSPHORUS (test code = 2227) 2.9 MG/DL Delfino Schumacher AustinINTACT [id number] 00:00:00* Test Item Value Reference Range Interpretation Comme nts INTACT PTH (test code = 5005) 60 PG/ML Delfino Schumacher AustinCALCIUM, [id number] 00:00:00* Test Item Value Reference Range Interpretation Comme nts CALCIUM, IONIZED (test code = 72163) 5.50 MG/DL Delfino Schumacher [id number] 00:00:00* Test Item Value Reference Range Interpretation Comme nts CALCIUM (test code = 2209) 10.6 MG/DL Delfino Schumacher [id number] 00:00:00* Test Item Value Reference Range Interpretation Comme nts CALCIUM (test code = 2209) 10.6 MG/DL Delfino Schumacher [id number] 00:00:00* Test Item Value Reference Range Interpretation Comme nts PHOSPHORUS (test code = 2227) 2.9 MG/DL Delfino Schumacher AustinINTACT [id number] 00:00:00* Test Item Value Reference Range Interpretation Comme nts INTACT PTH (test code = 5005) 60 PG/ML Delfino Schumacher AustinCALCIUM, [id number] 00:00:00* Test Item Value Reference Range Interpretation Comme nts CALCIUM, IONIZED (test code = 28922) 5.50 MG/DL Delfino Schumacher [id number] 00:00:00* Test Item Value Reference Range Interpretation Comme nts CALCIUM (test code = 2209) 10.6 MG/DL Delfino Schumacher [id number] 00:00:00* Test Item Value Reference Range Interpretation Comme nts PHOSPHORUS (test code = 2227) 2.9 MG/DL Delfino Schumacher [id number] 00:00:00* Test Item Value Reference Range Interpretation Comme nts PHOSPHORUS (test code = 2227) 2.9 MG/DL Delfino Schumacher AustinINTACT [id number] 00:00:00* Test Item Value Reference Range Interpretation Comme nts INTACT PTH (test code = 5005) 60 PG/ML Delfino Schumacher AustinCALCIUM, [id number] 00:00:00* Test Item Value Reference Range Interpretation Comme nts CALCIUM, IONIZED (test code = 08555) 5.50 MG/DL Delfino Schumacher [id number] 00:00:00* Test Item Value Reference Range Interpretation Comme nts CALCIUM (test code = 2209) 10.6 MG/DL Delfino Schumacher [id number] 00:00:00* Test Item Value Reference Range Interpretation Comme nts PHOSPHORUS (test code = 2227) 2.9 MG/DL Delfino Schumacher AustinINTACT [id number] 00:00:00* Test Item Value Reference Range Interpretation Comme nts INTACT PTH (test code = 5005) 60 PG/ML Delfino Schumacher AustinCALCIUM, [id number] 00:00:00* Test Item Value Reference Range Interpretation Comme nts CALCIUM, IONIZED (test code = 08235) 5.50 MG/DL Delfino Schumacher [id number] 00:00:00* Test Item Value Reference Range Interpretation Comme nts CALCIUM (test code = 2209) 10.6 MG/DL Delfino Schumacher [id number] 00:00:00* Test Item Value Reference Range Interpretation Comme nts PHOSPHORUS (test code = 2227) 2.9 MG/DL Delfino Schumacher AustinINTACT [id number] 00:00:00* Test Item Value Reference Range Interpretation Comme nts INTACT PTH (test code = 5005) 60 PG/ML Delfino Schumacher AustinCALCIUM, [id number] 00:00:00* Test Item Value Reference Range Interpretation Comme nts CALCIUM, IONIZED (test code = 44713) 5.50 MG/DL Delfino Schumacher [id number] 00:00:00* Test Item Value Reference Range Interpretation Comme nts CALCIUM (test code = 2209) 10.6 MG/DL Delfino Schumacher [id number] 00:00:00* Test Item Value Reference Range Interpretation Comme nts PHOSPHORUS (test code = 2227) 2.9 MG/DL Delfino Schumacher AustinINTACT [id number] 00:00:00* Test Item Value Reference Range Interpretation Comme nts INTACT PTH (test code = 5005) 60 PG/ML Delfino Schumacher AustinCALCIUM, [id number] 00:00:00* Test Item Value Reference Range Interpretation Comme nts CALCIUM, IONIZED (test code = 15364) 5.50 MG/DL Delfino Schumacher [id number] 00:00:00* Test Item Value Reference Range Interpretation Comme nts CALCIUM (test code = 2209) 10.6 MG/DL Delfino Schumacher [id number] 00:00:00* Test Item Value Reference Range Interpretation Comme nts PHOSPHORUS (test code = 2227) 2.9 MG/DL Delfino Schumacher AustinINTACT [id number] 00:00:00* Test Item Value Reference Range Interpretation Comme nts INTACT PTH (test code = 5005) 60 PG/ML Delfino OrtaCALCIUM, [id number] 00:00:00* Test Item Value Reference Range Interpretation Comme nts CALCIUM, IONIZED (test code = 47960) 5.50 MG/DL Delfino Schumacher [id number] 00:00:00* Test Item Value Reference Range Interpretation Comme nts CALCIUM (test code = 2209) 10.6 MG/DL Delfino Schumacher [id number] 00:00:00* Test Item Value Reference Range Interpretation Comme nts PHOSPHORUS (test code = 2227) 2.9 MG/DL Delfino Schumacher AustinINTACT [id number] 00:00:00* Test Item Value Reference Range Interpretation Comme nts INTACT PTH (test code = 5005) 60 PG/ML Delfino Schumacher AustinCALCIUM, [id number] 00:00:00* Test Item Value Reference Range Interpretation Comme nts CALCIUM, IONIZED (test code = 81732) 5.50 MG/DL Delfino Schumacher [id number] 00:00:00* Test Item Value Reference Range Interpretation Comme nts CALCIUM (test code = 2209) 10.6 MG/DL Delfino Schumacher [id number] 00:00:00* Test Item Value Reference Range Interpretation Comme nts PHOSPHORUS (test code = 2227) 2.9 MG/DL Delfino Schumacher AustinINTACT [id number] 00:00:00* Test Item Value Reference Range Interpretation Comme nts INTACT PTH (test code = 5005) 60 PG/ML Delfino Schumacher AustinCALCIUM, [id number] 00:00:00* Test Item Value Reference Range Interpretation Comme nts CALCIUM, IONIZED (test code = 01548) 5.50 MG/DL Delfino Schumacher [id number] 00:00:00* Test Item Value Reference Range Interpretation Comme nts CALCIUM (test code = 2209) 10.6 MG/DL Delfino Schumacher [id number] 00:00:00* Test Item Value Reference Range Interpretation Comme nts PHOSPHORUS (test code = 2227) 2.9 MG/DL Delfino Schumacher AustinINTACT [id number] 00:00:00* Test Item Value Reference Range Interpretation Comme nts INTACT PTH (test code = 5005) 60 PG/ML Delfino Schumacher AustinCALCIUM, [id number] 00:00:00* Test Item Value Reference Range Interpretation Comme nts CALCIUM, IONIZED (test code = 14869) 5.50 MG/DL Delfino Schumacher [id number] 00:00:00* Test Item Value Reference Range Interpretation Comme nts CALCIUM (test code = 2209) 10.6 MG/DL Delfino Schumacher [id number] 00:00:00* Test Item Value Reference Range Interpretation Comme nts PHOSPHORUS (test code = 2227) 2.9 MG/DL Delfino Schumacher AustinINTACT [id number] 00:00:00* Test Item Value Reference Range Interpretation Comme nts INTACT PTH (test code = 5005) 60 PG/ML Delfino Schumacher AustinCALCIUM, [id number] 00:00:00* Test Item Value Reference Range Interpretation Comme nts CALCIUM, IONIZED (test code = 69228) 5.50 MG/DL Delfino Schumacher [id number] 00:00:00* Test Item Value Reference Range Interpretation Comme nts CALCIUM (test code = 2209) 10.6 MG/DL Delfino Schumacher [id number] 00:00:00* Test Item Value Reference Range Interpretation Comme nts PHOSPHORUS (test code = 2227) 2.9 MG/DL Delfino Schumacher AustinINTACT [id number] 00:00:00* Test Item Value Reference Range Interpretation Comme nts INTACT PTH (test code = 5005) 60 PG/ML Delfino Schumacher AustinCALCIUM, [id number] 00:00:00* Test Item Value Reference Range Interpretation Comme nts CALCIUM, IONIZED (test code = 78807) 5.50 MG/DL Delfino Schumacher [id number] 00:00:00* Test Item Value Reference Range Interpretation Comme nts CALCIUM (test code = 2209) 10.6 MG/DL Delfino Schumacher VoymfdENSCMICUHM8749-89-67 00:00:00* Test Item Value Reference Range Interpretation Comme nts PHOSPHORUS (test code = 2227) 2.9 MG/DL Delfino Schumacher AustinINTACT [id number] 00:00:00* Test Item Value Reference Range Interpretation Comme nts INTACT PTH (test code = 5005) 60 PG/ML Delfino OrtaCALCIUM, [id number] 00:00:00* Test Item Value Reference Range Interpretation Comme nts CALCIUM, IONIZED (test code = 30713) 5.50 MG/DL Delfino Schumacher [id number] 00:00:00* Test Item Value Reference Range Interpretation Comme nts CALCIUM (test code = 2209) 10.6 MG/DL Delfino Schumacher [id number] 00:00:00* Test Item Value Reference Range Interpretation Comme nts PHOSPHORUS (test code = 2227) 2.9 MG/DL Delfino Schumacher AustinINTACT [id number] 00:00:00* Test Item Value Reference Range Interpretation Comme nts INTACT PTH (test code = 5005) 60 PG/ML Delfino Schumacher AustinCALCIUM, [id number] 00:00:00* Test Item Value Reference Range Interpretation Comme nts CALCIUM, IONIZED (test code = 60747) 5.50 MG/DL Delfino Schumacher [id number] 00:00:00* Test Item Value Reference Range Interpretation Comme nts CALCIUM (test code = 2209) 10.6 MG/DL Delfino Schumacher [id number] 00:00:00* Test Item Value Reference Range Interpretation Comme nts PHOSPHORUS (test code = 2227) 2.9 MG/DL Delfino Schumacher AustinINTACT [id number] 00:00:00* Test Item Value Reference Range Interpretation Comme nts INTACT PTH (test code = 5005) 60 PG/ML Delfino Schumacher AustinCALCIUM, [id number] 00:00:00* Test Item Value Reference Range Interpretation Comme nts CALCIUM, IONIZED (test code = 32013) 5.50 MG/DL Delfino Schumacher [id number] 00:00:00* Test Item Value Reference Range Interpretation Comme nts CALCIUM (test code = 2209) 10.6 MG/DL Delfino Schumacher [id number] 00:00:00* Test Item Value Reference Range Interpretation Comme nts PHOSPHORUS (test code = 2227) 2.9 MG/DL Delfino Schumacher AustinINTACT [id number] 00:00:00* Test Item Value Reference Range Interpretation Comme nts INTACT PTH (test code = 5005) 60 PG/ML Delfino OrtaCALCIUM, [id number] 00:00:00* Test Item Value Reference Range Interpretation Comme nts CALCIUM, IONIZED (test code = 28474) 5.50 MG/DL Delfino Schumacher YcriinIWFJMWX6486-95-11 00:00:00* Test Item Value Reference Range Interpretation Comme nts CALCIUM (test code = 2209) 10.6 MG/DL Delfino Schumacher [id number] 00:00:00* Test Item Value Reference Range Interpretation Comme nts PHOSPHORUS (test code = 2227) 2.9 MG/DL Delfino Schumacher AustinINTACT [id number] 00:00:00* Test Item Value Reference Range Interpretation Comme nts INTACT PTH (test code = 5005) 60 PG/ML Delfino Schumacher AustinCALCIUM, [id number] 00:00:00* Test Item Value Reference Range Interpretation Comme nts CALCIUM, IONIZED (test code = 58958) 5.50 MG/DL Delfino Schumacher [id number] 00:00:00* Test Item Value Reference Range Interpretation Comme nts CALCIUM (test code = 2209) 10.6 MG/DL Delfino Schumacher IaolktRSCZHAZNPR5205-26-83 00:00:00* Test Item Value Reference Range Interpretation Comme nts PHOSPHORUS (test code = 2227) 2.9 MG/DL Delfino Schumacher AustinINTACT [id number] 00:00:00* Test Item Value Reference Range Interpretation Comme nts INTACT PTH (test code = 5005) 60 PG/ML Delfino Schumacher AustinCALCIUM, [id number] 00:00:00* Test Item Value Reference Range Interpretation Comme nts CALCIUM, IONIZED (test code = 01519) 5.50 MG/DL Delfino Schumacher [id number] 00:00:00* Test Item Value Reference Range Interpretation Comme nts CALCIUM (test code = 2209) 10.6 MG/DL Delfino Schumacher [id number] 00:00:00* Test Item Value Reference Range Interpretation Comme nts PHOSPHORUS (test code = 2227) 2.9 MG/DL Delfino Schumacher AustinINTACT [id number] 00:00:00* Test Item Value Reference Range Interpretation Comme nts INTACT PTH (test code = 5005) 60 PG/ML Delfino Schumacher AustinINTACT [id number] 00:00:00* Test Item Value Reference Range Interpretation Comme nts INTACT PTH (test code = 5005) 60 PG/ML Delfino OrtaCALCIUM, [id number] 00:00:00* Test Item Value Reference Range Interpretation Comme nts CALCIUM, IONIZED (test code = 18145) 5.50 MG/DL Delfino Schumacher [id number] 00:00:00* Test Item Value Reference Range Interpretation Comme nts CALCIUM (test code = 2209) 10.6 MG/DL Delfino Schumacher [id number] 00:00:00* Test Item Value Reference Range Interpretation Comme nts PHOSPHORUS (test code = 2227) 2.9 MG/DL Delfino Schumacher AustinINTACT [id number] 00:00:00* Test Item Value Reference Range Interpretation Comme nts INTACT PTH (test code = 5005) 60 PG/ML eDlfino Schumacher AustinCALCIUM, [id number] 00:00:00* Test Item Value Reference Range Interpretation Comme nts CALCIUM, IONIZED (test code = 00854) 5.50 MG/DL Delfino Schumacher [id number] 00:00:00* Test Item Value Reference Range Interpretation Comme nts CALCIUM (test code = 2209) 10.6 MG/DL Delfino Schumacher [id number] 00:00:00* Test Item Value Reference Range Interpretation Comme nts PHOSPHORUS (test code = 2227) 2.9 MG/DL Delfino Schumacher AustinINTACT [id number] 00:00:00* Test Item Value Reference Range Interpretation Comme nts INTACT PTH (test code = 5005) 60 PG/ML Delfino Schumacher AustinCALCIUM, [id number] 00:00:00* Test Item Value Reference Range Interpretation Comme nts CALCIUM, IONIZED (test code = 36384) 5.50 MG/DL Delfino Schumacher AustinCALCIUM, [id number] 00:00:00* Test Item Value Reference Range Interpretation Comme nts CALCIUM, IONIZED (test code = 35208) 5.50 MG/DL Delfino Schumacher [id number] 00:00:00* Test Item Value Reference Range Interpretation Comme nts CALCIUM (test code = 2209) 10.6 MG/DL Delfino Schumacher TnxkzoWJEHSKVEVZ1456-75-66 00:00:00* Test Item Value Reference Range Interpretation Comme nts PHOSPHORUS (test code = 2227) 2.9 MG/DL Delfino Schumacher AustinINTACT [id number] 00:00:00* Test Item Value Reference Range Interpretation Comme nts INTACT PTH (test code = 5005) 60 PG/ML Delfino Schumacher AustinCALCIUM, [id number] 00:00:00* Test Item Value Reference Range Interpretation Comme nts CALCIUM, IONIZED (test code = 36943) 5.50 MG/DL Delfino OrtaCULTURE, [id number] 09:25:56SPECIMEN NUMBER: [id number] CULTURE, URINE SPECIMEN NUMBER: [id number] SPECIMEN COMMENT: URINE SOURCE: URINE REPORT STATUS: FINAL FINAL REPORT: 03/09/2023 10-50,000 CFU/ML UROGENITAL KARLA PRESENT NO COMMON PATHOGENSCULTURE, [id number] 00:00:00* Test Item Value Reference Range Interpretation Comme nts CULTURE, URINE (test code = 14174) SPECIMEN NUMBER: [id number] Delfino Cedeño [id number] 00:00:00* Test Item Value Reference Range Interpretation Comme nts CULTURE, URINE (test code = 61529) SPECIMEN NUMBER: [id number] Delfino Cedeño [id number] 00:00:00* Test Item Value Reference Range Interpretation Comme nts CULTURE, URINE (test code = 95297) SPECIMEN NUMBER: [id number] Delfino Cedeño [id number] 00:00:00* Test Item Value Reference Range Interpretation Comme nts CULTURE, URINE (test code = 51830) SPECIMEN NUMBER: [id number] Delfino Cedeño [id number] 00:00:00* Test Item Value Reference Range Interpretation Comme nts CULTURE, URINE (test code = 93160) SPECIMEN NUMBER: [id number] Delfino Cedeño [id number] 00:00:00* Test Item Value Reference Range Interpretation Comme nts CULTURE, URINE (test code = 39347) SPECIMEN NUMBER: [id number] Delfino Cedeño [id number] 00:00:00* Test Item Value Reference Range Interpretation Comme nts CULTURE, URINE (test code = 90727) SPECIMEN NUMBER: [id number] Delfino Cedeño [id number] 00:00:00* Test Item Value Reference Range Interpretation Comme nts CULTURE, URINE (test code = 35893) SPECIMEN NUMBER: [id number] Delfino Cedeño [id number] 00:00:00* Test Item Value Reference Range Interpretation Comme nts CULTURE, URINE (test code = 26267) SPECIMEN NUMBER: [id number] Delfino Cedeño, [id number] 00:00:00* Test Item Value Reference Range Interpretation Comme nts CULTURE, URINE (test code = 37978) SPECIMEN NUMBER: [id number] Delfino Cedeño, [id number] 00:00:00* Test Item Value Reference Range Interpretation Comme nts CULTURE, URINE (test code = 04383) SPECIMEN NUMBER: [id number] Delfino Cedeño, [id number] 00:00:00* Test Item Value Reference Range Interpretation Comme nts CULTURE, URINE (test code = 93255) SPECIMEN NUMBER: [id number] Delfino Cedeño [id number] 00:00:00* Test Item Value Reference Range Interpretation Comme nts CULTURE, URINE (test code = 99266) SPECIMEN NUMBER: [id number] ANGEL [id number] 00:00:00* Test Item Value Reference Range Interpretation Comme nts CULTURE, URINE (test code = 93339) SPECIMEN NUMBER: [id number] Delfino Cedeño [id number] 00:00:00* Test Item Value Reference Range Interpretation Comme nts CULTURE, URINE (test code = 34974) SPECIMEN NUMBER: [id number] ANGEL [id number] 00:00:00* Test Item Value Reference Range Interpretation Comme nts CULTURE, URINE (test code = 80739) SPECIMEN NUMBER: [id number] Delfino Cedeoñ [id number] 00:00:00* Test Item Value Reference Range Interpretation Comme nts CULTURE, URINE (test code = 82392) SPECIMEN NUMBER: [id number] Delfino Cedeño [id number] 00:00:00* Test Item Value Reference Range Interpretation Comme nts CULTURE, URINE (test code = 07585) SPECIMEN NUMBER: [id number] Delfino Cedeño [id number] 00:00:00* Test Item Value Reference Range Interpretation Comme nts CULTURE, URINE (test code = 07362) SPECIMEN NUMBER: [id number] Delfino Cedeño [id number] 00:00:00* Test Item Value Reference Range Interpretation Comme nts CULTURE, URINE (test code = 97130) SPECIMEN NUMBER: [id number] Delfino Cedeño [id number] 00:00:00* Test Item Value Reference Range Interpretation Comme nts CULTURE, URINE (test code = 00929) SPECIMEN NUMBER: [id number] Delfino Cedeño [id number] 00:00:00* Test Item Value Reference Range Interpretation Comme nts CULTURE, URINE (test code = 71696) SPECIMEN NUMBER: [id number] Delfino OrtaCULTURE, [id number] 00:00:00* Test Item Value Reference Range Interpretation Comme nts CULTURE, URINE (test code = 13680) SPECIMEN NUMBER: [id number] Delfino OrtaCOMPREHENSIVE METABOLIC [id number] 04:45:25* Test Item Value Reference Range Interpretation Comme nts GLUCOSE (test code = 2217) 87 MG/DL 70-99 BUN (test code = 220) 32 MG/DL 8-23 H CREATININE (test code = 2214) 1.39 MG/DL 0.60-1.30 H eGFR (2020 CKD-EPI) (test co de = ) 43 ML/MIN/1.73 >60 L CALC BUN/CREAT (test [...] code = 2219) 32 U/L 5-40 LIPID [id number] 04:45:25* Test Item Value Reference Range Interpretation [...] SPECIMENS. FOR MOREINFORMATION, SEE CLIENT ANNOUNCEMENT AT [email or web address] RISK RATIO LDL/HDL (test code = 2238) 0.58 RATIO <3.22 UNLESS OTHERW ISE INDICATED, ALL TESTING PERFORMED AT [facility] [address] [place] [address] REGULATORY SPECIALIST: ABBI SHORT M.D. [place] NUMBER [id number] [facility]. [id number] COMPREHENSIVE METABOLIC [id number] 00:00:00* Test Item Value Reference Range Interpretation Comme nts GLUCOSE (test code = 2217) 87 MG/DL BUN (test code = 2208) 32 MG/DL CREATININE (test code = 2214) 1.39 MG/DL eGFR (2020 CKD-EPI) (test co de = 96004) 43 ML/MIN/1.73 CALC BUN/CREAT (test code = [...] code = 2219) 32 U/L Delfino OrtaLIPID [id number] 00:00:00* Test Item Value Reference Range Interpretation Comme nts CHOLESTEROL (test code = 2210) 187 MG/DL TRIGLYCERIDES (test code = 2232) 58 MG/DL HDL CHOLESTEROL (test code = 2220) 110 MG/DL CALC LDL CHOL (test code = 2237) 64 MG/DL RISK RATIO LDL/HDL (test cod e = 2238) 0.58 RATIO Delfino OrtaCOMPREHENSIVE METABOLIC [id number] 00:00:00* Test Item Value Reference Range Interpretation Comme nts GLUCOSE (test code = 2217) 87 MG/DL BUN (test code = 2208) 32 MG/DL CREATININE (test code = 2214) 1.39 MG/DL eGFR (2020 CKD-EPI) (test co de = 14417) 43 ML/MIN/1.73 CALC BUN/CREAT (test code = [...] = 2219) 32 U/L Delfino Schumacher AustinLIPID [id number] 00:00:00* Test Item Value Reference Range Interpretation Comme nts CHOLESTEROL (test code = 2210) 187 MG/DL TRIGLYCERIDES (test code = 2232) 58 MG/DL HDL CHOLESTEROL (test code = 2220) 110 MG/DL CALC LDL CHOL (test code = 2237) 64 MG/DL RISK RATIO LDL/HDL (test cod e = 2238) 0.58 RATIO Delfino OrtaLIPID [id number] 00:00:00* Test Item Value Reference Range Interpretation Comme nts CHOLESTEROL (test code = 2210) 187 MG/DL TRIGLYCERIDES (test code = 2232) 58 MG/DL HDL CHOLESTEROL (test code = 2220) 110 MG/DL CALC LDL CHOL (test code = 2237) 64 MG/DL RISK RATIO LDL/HDL (test cod e = 2238) 0.58 RATIO Delfino OrtaCOMPREHENSIVE METABOLIC [id number] 00:00:00* Test Item Value Reference Range Interpretation Comme nts GLUCOSE (test code = 2217) 87 MG/DL BUN (test code = 2208) 32 MG/DL CREATININE (test code = 2214) 1.39 MG/DL eGFR (2020 CKD-EPI) (test co de = 43819) 43 ML/MIN/1.73 CALC BUN/CREAT (test code = [...] = 2219) 32 U/L Delfino Schumacher AustinLIPID [id number] 00:00:00* Test Item Value Reference Range Interpretation Comme nts CHOLESTEROL (test code = 2210) 187 MG/DL TRIGLYCERIDES (test code = 2232) 58 MG/DL HDL CHOLESTEROL (test code = 2220) 110 MG/DL CALC LDL CHOL (test code = 2237) 64 MG/DL RISK RATIO LDL/HDL (test cod e = 2238) 0.58 RATIO Delfino Schumacher AustinCOMPREHENSIVE METABOLIC [id number] 00:00:00* Test Item Value Reference Range Interpretation Comme nts GLUCOSE (test code = 2217) 87 MG/DL BUN (test code = 2208) 32 MG/DL CREATININE (test code = 2214) 1.39 MG/DL eGFR (2020 CKD-EPI) (test co de = 00654) 43 ML/MIN/1.73 CALC BUN/CREAT (test code = [...] code = 2219) 32 U/L Delfino Schumacher BaileyLIPID [id number] 00:00:00* Test Item Value Reference Range Interpretation Comme nts CHOLESTEROL (test code = 2210) 187 MG/DL TRIGLYCERIDES (test code = 2232) 58 MG/DL HDL CHOLESTEROL (test code = 2220) 110 MG/DL CALC LDL CHOL (test code = 2237) 64 MG/DL RISK RATIO LDL/HDL (test cod e = 2238) 0.58 RATIO Delfino OrtaCOMPREHENSIVE METABOLIC [id number] 00:00:00* Test Item Value Reference Range Interpretation Comme nts GLUCOSE (test code = 2217) 87 MG/DL BUN (test code = 2208) 32 MG/DL CREATININE (test code = 2214) 1.39 MG/DL eGFR (2020 CKD-EPI) (test co de = 29478) 43 ML/MIN/1.73 CALC BUN/CREAT (test code = [...] = 2219) 32 U/L Delfino Schumacher AustinLIPID [id number] 00:00:00* Test Item Value Reference Range Interpretation Comme nts CHOLESTEROL (test code = 2210) 187 MG/DL TRIGLYCERIDES (test code = 2232) 58 MG/DL HDL CHOLESTEROL (test code = 2220) 110 MG/DL CALC LDL CHOL (test code = 2237) 64 MG/DL RISK RATIO LDL/HDL (test cod e = 2238) 0.58 RATIO Delfino OrtaCOMPREHENSIVE METABOLIC [id number] 00:00:00* Test Item Value Reference Range Interpretation Comme nts GLUCOSE (test code = 2217) 87 MG/DL BUN (test code = 2208) 32 MG/DL CREATININE (test code = 2214) 1.39 MG/DL eGFR (2020 CKD-EPI) (test co de = 67762) 43 ML/MIN/1.73 CALC BUN/CREAT (test code = [...] = 2219) 32 U/L Delfino Schumacher AustinLIPID [id number] 00:00:00* Test Item Value Reference Range Interpretation Comme nts CHOLESTEROL (test code = 2210) 187 MG/DL TRIGLYCERIDES (test code = 2232) 58 MG/DL HDL CHOLESTEROL (test code = 2220) 110 MG/DL CALC LDL CHOL (test code = 2237) 64 MG/DL RISK RATIO LDL/HDL (test cod e = 2238) 0.58 RATIO Delfino OtraCOMPREHENSIVE METABOLIC [id number] 00:00:00* Test Item Value Reference Range Interpretation Comme nts GLUCOSE (test code = 2217) 87 MG/DL BUN (test code = 2208) 32 MG/DL CREATININE (test code = 2214) 1.39 MG/DL eGFR (2020 CKD-EPI) (test co de = 71250) 43 ML/MIN/1.73 CALC BUN/CREAT (test code = [...] = 2219) 32 U/L Delfino Schumacher AustinLIPID [id number] 00:00:00* Test Item Value Reference Range Interpretation Comme nts CHOLESTEROL (test code = 2210) 187 MG/DL TRIGLYCERIDES (test code = 2232) 58 MG/DL HDL CHOLESTEROL (test code = 2220) 110 MG/DL CALC LDL CHOL (test code = 2237) 64 MG/DL RISK RATIO LDL/HDL (test cod e = 2238) 0.58 RATIO Delfino OrtaCOMPREHENSIVE METABOLIC [id number] 00:00:00* Test Item Value Reference Range Interpretation Comme nts GLUCOSE (test code = 2217) 87 MG/DL BUN (test code = 2208) 32 MG/DL CREATININE (test code = 2214) 1.39 MG/DL eGFR (2020 CKD-EPI) (test co de = 35113) 43 ML/MIN/1.73 CALC BUN/CREAT (test code = [...] code = 2219) 32 U/L Delfino Schumacher BaileyLIPID [id number] 00:00:00* Test Item Value Reference Range Interpretation Comme nts CHOLESTEROL (test code = 2210) 187 MG/DL TRIGLYCERIDES (test code = 2232) 58 MG/DL HDL CHOLESTEROL (test code = 2220) 110 MG/DL CALC LDL CHOL (test code = 2237) 64 MG/DL RISK RATIO LDL/HDL (test cod e = 2238) 0.58 RATIO Delfino OrtaCOMPREHENSIVE METABOLIC [id number] 00:00:00* Test Item Value Reference Range Interpretation Comme nts GLUCOSE (test code = 2217) 87 MG/DL BUN (test code = 2208) 32 MG/DL CREATININE (test code = 2214) 1.39 MG/DL eGFR (2020 CKD-EPI) (test co de = 54677) 43 ML/MIN/1.73 CALC BUN/CREAT (test code = [...] code = 2219) 32 U/L Delfino OrtaLIPID [id number] 00:00:00* Test Item Value Reference Range Interpretation Comme nts CHOLESTEROL (test code = 2210) 187 MG/DL TRIGLYCERIDES (test code = 2232) 58 MG/DL HDL CHOLESTEROL (test code = 2220) 110 MG/DL CALC LDL CHOL (test code = 2237) 64 MG/DL RISK RATIO LDL/HDL (test cod e = 2238) 0.58 RATIO Delfino OrtaCOMPREHENSIVE METABOLIC [id number] 00:00:00* Test Item Value Reference Range Interpretation Comme nts GLUCOSE (test code = 2217) 87 MG/DL BUN (test code = 2208) 32 MG/DL CREATININE (test code = 2214) 1.39 MG/DL eGFR (2020 CKD-EPI) (test co de = 00566) 43 ML/MIN/1.73 CALC BUN/CREAT (test code = [...] code = 2219) 32 U/L Delfino OrtaLIPID [id number] 00:00:00* Test Item Value Reference Range Interpretation Comme nts CHOLESTEROL (test code = 2210) 187 MG/DL TRIGLYCERIDES (test code = 2232) 58 MG/DL HDL CHOLESTEROL (test code = 2220) 110 MG/DL CALC LDL CHOL (test code = 2237) 64 MG/DL RISK RATIO LDL/HDL (test cod e = 2238) 0.58 RATIO Delfino Schumacher AustinCOMPREHENSIVE METABOLIC [id number] 00:00:00* Test Item Value Reference Range Interpretation Comme nts GLUCOSE (test code = 2217) 87 MG/DL BUN (test code = 2208) 32 MG/DL CREATININE (test code = 2214) 1.39 MG/DL eGFR (2020 CKD-EPI) (test co de = 56359) 43 ML/MIN/1.73 CALC BUN/CREAT (test code = [...] code = 2219) 32 U/L Delfino OrtaLIPID [id number] 00:00:00* Test Item Value Reference Range Interpretation Comme nts CHOLESTEROL (test code = 2210) 187 MG/DL TRIGLYCERIDES (test code = 2232) 58 MG/DL HDL CHOLESTEROL (test code = 2220) 110 MG/DL CALC LDL CHOL (test code = 2237) 64 MG/DL RISK RATIO LDL/HDL (test cod e = 2238) 0.58 RATIO Delfino OrtaCOMPREHENSIVE METABOLIC [id number] 00:00:00* Test Item Value Reference Range Interpretation Comme nts GLUCOSE (test code = 2217) 87 MG/DL BUN (test code = 2208) 32 MG/DL CREATININE (test code = 2214) 1.39 MG/DL eGFR (2020 CKD-EPI) (test co de = 11651) 43 ML/MIN/1.73 CALC BUN/CREAT (test code = [...] code = 2219) 32 U/L Delfino OrtaLIPID [id number] 00:00:00* Test Item Value Reference Range Interpretation Comme nts CHOLESTEROL (test code = 2210) 187 MG/DL TRIGLYCERIDES (test code = 2232) 58 MG/DL HDL CHOLESTEROL (test code = 2220) 110 MG/DL CALC LDL CHOL (test code = 2237) 64 MG/DL RISK RATIO LDL/HDL (test cod e = 2238) 0.58 RATIO Delfino OrtaCOMPREHENSIVE METABOLIC [id number] 00:00:00* Test Item Value Reference Range Interpretation Comme nts GLUCOSE (test code = 2217) 87 MG/DL BUN (test code = 2208) 32 MG/DL CREATININE (test code = 2214) 1.39 MG/DL eGFR (2020 CKD-EPI) (test co de = 33167) 43 ML/MIN/1.73 CALC BUN/CREAT (test code = [...] code = 2219) 32 U/L Delfino Schumacher BaileyLIPID [id number] 00:00:00* Test Item Value Reference Range Interpretation Comme nts CHOLESTEROL (test code = 2210) 187 MG/DL TRIGLYCERIDES (test code = 2232) 58 MG/DL HDL CHOLESTEROL (test code = 2220) 110 MG/DL CALC LDL CHOL (test code = 2237) 64 MG/DL RISK RATIO LDL/HDL (test cod e = 2238) 0.58 RATIO Delfino OrtaCOMPREHENSIVE METABOLIC [id number] 00:00:00* Test Item Value Reference Range Interpretation Comme nts GLUCOSE (test code = 2217) 87 MG/DL BUN (test code = 2208) 32 MG/DL CREATININE (test code = 2214) 1.39 MG/DL eGFR (2020 CKD-EPI) (test co de = 38367) 43 ML/MIN/1.73 CALC BUN/CREAT (test code = [...] code = 2219) 32 U/L Delfino OrtaLIPID [id number] 00:00:00* Test Item Value Reference Range Interpretation Comme nts CHOLESTEROL (test code = 2210) 187 MG/DL TRIGLYCERIDES (test code = 2232) 58 MG/DL HDL CHOLESTEROL (test code = 2220) 110 MG/DL CALC LDL CHOL (test code = 2237) 64 MG/DL RISK RATIO LDL/HDL (test cod e = 2238) 0.58 RATIO Delfino OrtaCOMPREHENSIVE METABOLIC [id number] 00:00:00* Test Item Value Reference Range Interpretation Comme nts GLUCOSE (test code = 2217) 87 MG/DL BUN (test code = 2208) 32 MG/DL CREATININE (test code = 2214) 1.39 MG/DL eGFR (2020 CKD-EPI) (test co de = 10938) 43 ML/MIN/1.73 CALC BUN/CREAT (test code = [...] code = 2219) 32 U/L Delfino OrtaLIPID [id number] 00:00:00* Test Item Value Reference Range Interpretation Comme nts CHOLESTEROL (test code = 2210) 187 MG/DL TRIGLYCERIDES (test code = 2232) 58 MG/DL HDL CHOLESTEROL (test code = 2220) 110 MG/DL CALC LDL CHOL (test code = 2237) 64 MG/DL RISK RATIO LDL/HDL (test cod e = 2238) 0.58 RATIO Delfino OrtaCOMPREHENSIVE METABOLIC [id number] 00:00:00* Test Item Value Reference Range Interpretation Comme nts GLUCOSE (test code = 2217) 87 MG/DL BUN (test code = 2208) 32 MG/DL CREATININE (test code = 2214) 1.39 MG/DL eGFR (2020 CKD-EPI) (test co de = 02931) 43 ML/MIN/1.73 CALC BUN/CREAT (test code = [...] code = 2219) 32 U/L Delfino OrtaLIPID [id number] 00:00:00* Test Item Value Reference Range Interpretation Comme nts CHOLESTEROL (test code = 2210) 187 MG/DL TRIGLYCERIDES (test code = 2232) 58 MG/DL HDL CHOLESTEROL (test code = 2220) 110 MG/DL CALC LDL CHOL (test code = 2237) 64 MG/DL RISK RATIO LDL/HDL (test cod e = 2238) 0.58 RATIO Delfino Schumacher AustinCOMPREHENSIVE METABOLIC [id number] 00:00:00* Test Item Value Reference Range Interpretation Comme nts GLUCOSE (test code = 2217) 87 MG/DL BUN (test code = 2208) 32 MG/DL CREATININE (test code = 2214) 1.39 MG/DL eGFR (2020 CKD-EPI) (test co de = 85941) 43 ML/MIN/1.73 CALC BUN/CREAT (test code = [...] code = 2219) 32 U/L Delfino OrtaLIPID [id number] 00:00:00* Test Item Value Reference Range Interpretation Comme nts CHOLESTEROL (test code = 2210) 187 MG/DL TRIGLYCERIDES (test code = 2232) 58 MG/DL HDL CHOLESTEROL (test code = 2220) 110 MG/DL CALC LDL CHOL (test code = 2237) 64 MG/DL RISK RATIO LDL/HDL (test cod e = 2238) 0.58 RATIO Delfino OrtaCOMPREHENSIVE METABOLIC [id number] 00:00:00* Test Item Value Reference Range Interpretation Comme nts GLUCOSE (test code = 2217) 87 MG/DL BUN (test code = 2208) 32 MG/DL CREATININE (test code = 2214) 1.39 MG/DL eGFR (2020 CKD-EPI) (test co de = 36826) 43 ML/MIN/1.73 CALC BUN/CREAT (test code = [...] = 2219) 32 U/L Delfino Schumacher AustinLIPID [id number] 00:00:00* Test Item Value Reference Range Interpretation Comme nts CHOLESTEROL (test code = 2210) 187 MG/DL TRIGLYCERIDES (test code = 2232) 58 MG/DL HDL CHOLESTEROL (test code = 2220) 110 MG/DL CALC LDL CHOL (test code = 2237) 64 MG/DL RISK RATIO LDL/HDL (test cod e = 2238) 0.58 RATIO eDlfino OrtaCOMPREHENSIVE METABOLIC [id number] 00:00:00* Test Item Value Reference Range Interpretation Comme nts GLUCOSE (test code = 2217) 87 MG/DL BUN (test code = 2208) 32 MG/DL CREATININE (test code = 2214) 1.39 MG/DL eGFR (2020 CKD-EPI) (test co de = 44733) 43 ML/MIN/1.73 CALC BUN/CREAT (test code = [...] = 2219) 32 U/L Delfino Schumacher AustinLIPID [id number] 00:00:00* Test Item Value Reference Range Interpretation Comme nts CHOLESTEROL (test code = 2210) 187 MG/DL TRIGLYCERIDES (test code = 2232) 58 MG/DL HDL CHOLESTEROL (test code = 2220) 110 MG/DL CALC LDL CHOL (test code = 2237) 64 MG/DL RISK RATIO LDL/HDL (test cod e = 2238) 0.58 RATIO Delfino OrtaCOMPREHENSIVE METABOLIC [id number] 00:00:00* Test Item Value Reference Range Interpretation Comme nts GLUCOSE (test code = 2217) 87 MG/DL BUN (test code = 2208) 32 MG/DL CREATININE (test code = 2214) 1.39 MG/DL eGFR (2020 CKD-EPI) (test co de = 14241) 43 ML/MIN/1.73 CALC BUN/CREAT (test code = [...] = 2219) 32 U/L Delfino Schumacher AustinLIPID [id number] 00:00:00* Test Item Value Reference Range Interpretation Comme nts CHOLESTEROL (test code = 2210) 187 MG/DL TRIGLYCERIDES (test code = 2232) 58 MG/DL HDL CHOLESTEROL (test code = 2220) 110 MG/DL CALC LDL CHOL (test code = 2237) 64 MG/DL RISK RATIO LDL/HDL (test cod e = 2238) 0.58 RATIO Delfino OrtaCOMPREHENSIVE METABOLIC [id number] 00:00:00* Test Item Value Reference Range Interpretation Comme nts GLUCOSE (test code = 2217) 87 MG/DL BUN (test code = 2208) 32 MG/DL CREATININE (test code = 2214) 1.39 MG/DL eGFR (2020 CKD-EPI) (test co de = 41993) 43 ML/MIN/1.73 CALC BUN/CREAT (test code = [...] code = 2219) 32 U/L Delfino Endy BaileyLIPID [id number] 00:00:00* Test Item Value Reference Range Interpretation Comme nts CHOLESTEROL (test code = 2210) 187 MG/DL TRIGLYCERIDES (test code = 2232) 58 MG/DL HDL CHOLESTEROL (test code = 2220) 110 MG/DL CALC LDL CHOL (test code = 2237) 64 MG/DL RISK RATIO LDL/HDL (test cod e = 2238) 0.58 RATIO Delfino Schumacher YouCOMPREHENSIVE METABOLIC [id number] 00:00:00* Test Item Value Reference Range Interpretation Comme nts GLUCOSE (test code = 2217) 87 MG/DL BUN (test code = 2208) 32 MG/DL CREATININE (test code = 2214) 1.39 MG/DL eGFR (2020 CKD-EPI) (test co de = 95320) 43 ML/MIN/1.73 CALC BUN/CREAT (test code = [...] = 2219) 32 U/L Delfino OrtaCOMPREHENSIVE METABOLIC [id number] 00:00:00* Test Item Value Reference Range Interpretation Comme nts GLUCOSE (test code = 2217) 87 MG/DL BUN (test code = 2208) 32 MG/DL CREATININE (test code = 2214) 1.39 MG/DL eGFR (2020 CKD-EPI) (test co de = 92056) 43 ML/MIN/1.73 CALC BUN/CREAT (test code = [...] = 2219) 32 U/L Delfino Schumacher AustinLIPID [id number] 00:00:00* Test Item Value Reference Range Interpretation Comme nts CHOLESTEROL (test code = 2210) 187 MG/DL TRIGLYCERIDES (test code = 2232) 58 MG/DL HDL CHOLESTEROL (test code = 2220) 110 MG/DL CALC LDL CHOL (test code = 2237) 64 MG/DL RISK RATIO LDL/HDL (test cod e = 2238) 0.58 RATIO Delfino Schumacher AustinLIPID [id number] 00:00:00* Test Item Value Reference Range Interpretation Comme nts CHOLESTEROL (test code = 2210) 183 MG/DL TRIGLYCERIDES (test code = 2232) 69 MG/DL HDL CHOLESTEROL (test code = 2220) 93 MG/DL CALC LDL CHOL (test code = 2237) 75 MG/DL RISK RATIO LDL/HDL (test cod e = 2238) 0.81 RATIO Delfino OrtaCOMPREHENSIVE METABOLIC [id number] 00:00:00* Test Item Value Reference Range Interpretation Comme nts GLUCOSE (test code = 2217) 74 MG/DL BUN (test code = 2208) 16 MG/DL CREATININE (test code = 2214) 0.96 MG/DL eGFR (2020 CKD-EPI) (test co de = 86643) 69 ML/MIN/1.73 CALC BUN/CREAT (test code = [...] = 2219) 13 U/L Delfino Schumacher AustinLIPID [id number] 00:00:00* Test Item Value Reference Range Interpretation Comme nts CHOLESTEROL (test code = 2210) 183 MG/DL TRIGLYCERIDES (test code = 2232) 69 MG/DL HDL CHOLESTEROL (test code = 2220) 93 MG/DL CALC LDL CHOL (test code = 2237) 75 MG/DL RISK RATIO LDL/HDL (test cod e = 2238) 0.81 RATIO Delfino OrtaCOMPREHENSIVE METABOLIC [id number] 00:00:00* Test Item Value Reference Range Interpretation Comme nts GLUCOSE (test code = 2217) 74 MG/DL BUN (test code = 2208) 16 MG/DL CREATININE (test code = 2214) 0.96 MG/DL eGFR (2020 CKD-EPI) (test co de = 47010) 69 ML/MIN/1.73 CALC BUN/CREAT (test code = [...] code = 2219) 13 U/L Delfino Schumacher BaileyLIPID [id number] 00:00:00* Test Item Value Reference Range Interpretation Comme nts CHOLESTEROL (test code = 2210) 183 MG/DL TRIGLYCERIDES (test code = 2232) 69 MG/DL HDL CHOLESTEROL (test code = 2220) 93 MG/DL CALC LDL CHOL (test code = 2237) 75 MG/DL RISK RATIO LDL/HDL (test cod e = 2238) 0.81 RATIO Delfino Endy YouCOMPREHENSIVE METABOLIC [id number] 00:00:00* Test Item Value Reference Range Interpretation Comme nts GLUCOSE (test code = 2217) 74 MG/DL BUN (test code = 2208) 16 MG/DL CREATININE (test code = 2214) 0.96 MG/DL eGFR (2020 CKD-EPI) (test co de = 48426) 69 ML/MIN/1.73 CALC BUN/CREAT (test code = [...] code = 2219) 13 U/L Delfino Schumacher BaileyLIPID [id number] 00:00:00* Test Item Value Reference Range Interpretation Comme nts CHOLESTEROL (test code = 2210) 183 MG/DL TRIGLYCERIDES (test code = 2232) 69 MG/DL HDL CHOLESTEROL (test code = 2220) 93 MG/DL CALC LDL CHOL (test code = 2237) 75 MG/DL RISK RATIO LDL/HDL (test cod e = 2238) 0.81 RATIO Delfino OrtaCOMPREHENSIVE METABOLIC [id number] 00:00:00* Test Item Value Reference Range Interpretation Comme nts GLUCOSE (test code = 2217) 74 MG/DL BUN (test code = 2208) 16 MG/DL CREATININE (test code = 2214) 0.96 MG/DL eGFR (2020 CKD-EPI) (test co de = 35709) 69 ML/MIN/1.73 CALC BUN/CREAT (test code = [...] = 2219) 13 U/L Delfino Schumacher AustinLIPID [id number] 00:00:00* Test Item Value Reference Range Interpretation Comme nts CHOLESTEROL (test code = 2210) 183 MG/DL TRIGLYCERIDES (test code = 2232) 69 MG/DL HDL CHOLESTEROL (test code = 2220) 93 MG/DL CALC LDL CHOL (test code = 2237) 75 MG/DL RISK RATIO LDL/HDL (test cod e = 2238) 0.81 RATIO Delfino OrtaCOMPREHENSIVE METABOLIC [id number] 00:00:00* Test Item Value Reference Range Interpretation Comme nts GLUCOSE (test code = 2217) 74 MG/DL BUN (test code = 2208) 16 MG/DL CREATININE (test code = 2214) 0.96 MG/DL eGFR (2020 CKD-EPI) (test co de = 49276) 69 ML/MIN/1.73 CALC BUN/CREAT (test code = [...] = 2219) 13 U/L Delfino OrtaCOMPREHENSIVE METABOLIC [id number] 00:00:00* Test Item Value Reference Range Interpretation Comme nts GLUCOSE (test code = 2217) 74 MG/DL BUN (test code = 2208) 16 MG/DL CREATININE (test code = 2214) 0.96 MG/DL eGFR (2020 CKD-EPI) (test co de = 22546) 69 ML/MIN/1.73 CALC BUN/CREAT (test code = [...] (test code = 2219) 13 U/L LIPID [id number] 00:00:00* Test Item Value Reference Range Interpretation Comme nts CHOLESTEROL (test code = 2210) 183 MG/DL TRIGLYCERIDES (test code = 2232) 69 MG/DL HDL CHOLESTEROL (test code = 2220) 93 MG/DL CALC LDL CHOL (test code = 2237) 75 MG/DL RISK RATIO LDL/HDL (test cod e = 2238) 0.81 RATIO Delfino F AustinLIPID [id number] 00:00:00* Test Item Value Reference Range Interpretation Comme nts CHOLESTEROL (test code = 2210) 183 MG/DL TRIGLYCERIDES (test code = 2232) 69 MG/DL HDL CHOLESTEROL (test code = 2220) 93 MG/DL CALC LDL CHOL (test code = 2237) 75 MG/DL RISK RATIO LDL/HDL (test cod e = 2238) 0.81 RATIO COMPREHENSIVE METABOLIC [id number] 00:00:00* Test Item Value Reference Range Interpretation Comme nts GLUCOSE (test code = 2217) 74 MG/DL BUN (test code = 2208) 16 MG/DL CREATININE (test code = 2214) 0.96 MG/DL eGFR (2020 CKD-EPI) (test co de = 05045) 69 ML/MIN/1.73 CALC BUN/CREAT (test code = [...] code = 2219) 13 U/L Delfino OrtaLIPID [id number] 00:00:00* Test Item Value Reference Range Interpretation Comme nts CHOLESTEROL (test code = 2210) 183 MG/DL TRIGLYCERIDES (test code = 2232) 69 MG/DL HDL CHOLESTEROL (test code = 2220) 93 MG/DL CALC LDL CHOL (test code = 2237) 75 MG/DL RISK RATIO LDL/HDL (test cod e = 2238) 0.81 RATIO Delfino OrtaCOMPREHENSIVE METABOLIC [id number] 00:00:00* Test Item Value Reference Range Interpretation Comme nts GLUCOSE (test code = 2217) 74 MG/DL BUN (test code = 2208) 16 MG/DL CREATININE (test code = 2214) 0.96 MG/DL eGFR (2020 CKD-EPI) (test co de = 43919) 69 ML/MIN/1.73 CALC BUN/CREAT (test code = [...] = 2219) 13 U/L Delfino Schumacher AustinLIPID [id number] 00:00:00* Test Item Value Reference Range Interpretation Comme nts CHOLESTEROL (test code = 2210) 183 MG/DL TRIGLYCERIDES (test code = 2232) 69 MG/DL HDL CHOLESTEROL (test code = 2220) 93 MG/DL CALC LDL CHOL (test code = 2237) 75 MG/DL RISK RATIO LDL/HDL (test cod e = 2238) 0.81 RATIO Delfino OrtaCOMPREHENSIVE METABOLIC [id number] 00:00:00* Test Item Value Reference Range Interpretation Comme nts GLUCOSE (test code = 2217) 74 MG/DL BUN (test code = 2208) 16 MG/DL CREATININE (test code = 2214) 0.96 MG/DL eGFR (2020 CKD-EPI) (test co de = 30138) 69 ML/MIN/1.73 CALC BUN/CREAT (test [...] = 2219) 13 U/L Delfino Schumacher AustinLIPID [id number] 00:00:00* Test Item Value Reference Range Interpretation Comme nts CHOLESTEROL (test code = 2210) 183 MG/DL TRIGLYCERIDES (test code = 2232) 69 MG/DL HDL CHOLESTEROL (test code = 2220) 93 MG/DL CALC LDL CHOL (test code = 2237) 75 MG/DL RISK RATIO LDL/HDL (test cod e = 2238) 0.81 RATIO Delfino Schumacher AustinCOMPREHENSIVE METABOLIC [id number] 00:00:00* Test Item Value Reference Range Interpretation Comme nts GLUCOSE (test code = 2217) 74 MG/DL BUN (test code = 2208) 16 MG/DL CREATININE (test code = 2214) 0.96 MG/DL eGFR (2020 CKD-EPI) (test co de = 86624) 69 ML/MIN/1.73 CALC BUN/CREAT (test code = [...] = 2219) 13 U/L Delfino Schumacher AustinLIPID [id number] 00:00:00* Test Item Value Reference Range Interpretation Comme nts CHOLESTEROL (test code = 2210) 183 MG/DL TRIGLYCERIDES (test code = 2232) 69 MG/DL HDL CHOLESTEROL (test code = 2220) 93 MG/DL CALC LDL CHOL (test code = 2237) 75 MG/DL RISK RATIO LDL/HDL (test cod e = 2238) 0.81 RATIO Delfino Schumacher AustinCOMPREHENSIVE METABOLIC [id number] 00:00:00* Test Item Value Reference Range Interpretation Comme nts GLUCOSE (test code = 2217) 74 MG/DL BUN (test code = 2208) 16 MG/DL CREATININE (test code = 2214) 0.96 MG/DL eGFR (2020 CKD-EPI) (test co de = 78979) 69 ML/MIN/1.73 CALC BUN/CREAT (test code = [...] code = 2219) 13 U/L Delfino OrtaLIPID [id number] 00:00:00* Test Item Value Reference Range Interpretation Comme nts CHOLESTEROL (test code = 2210) 183 MG/DL TRIGLYCERIDES (test code = 2232) 69 MG/DL HDL CHOLESTEROL (test code = 2220) 93 MG/DL CALC LDL CHOL (test code = 2237) 75 MG/DL RISK RATIO LDL/HDL (test cod e = 2238) 0.81 RATIO Delfino Schumacher YouCOMPREHENSIVE METABOLIC [id number] 00:00:00* Test Item Value Reference Range Interpretation Comme nts GLUCOSE (test code = 2217) 74 MG/DL BUN (test code = 2208) 16 MG/DL CREATININE (test code = 2214) 0.96 MG/DL eGFR (2020 CKD-EPI) (test co de = 44187) 69 ML/MIN/1.73 CALC BUN/CREAT (test code = [...] = 2219) 13 U/L Delfino Schumacher AustinLIPID [id number] 00:00:00* Test Item Value Reference Range Interpretation Comme nts CHOLESTEROL (test code = 2210) 183 MG/DL TRIGLYCERIDES (test code = 2232) 69 MG/DL HDL CHOLESTEROL (test code = 2220) 93 MG/DL CALC LDL CHOL (test code = 2237) 75 MG/DL RISK RATIO LDL/HDL (test cod e = 2238) 0.81 RATIO Delfino OrtaCOMPREHENSIVE METABOLIC [id number] 00:00:00* Test Item Value Reference Range Interpretation Comme nts GLUCOSE (test code = 2217) 74 MG/DL BUN (test code = 2208) 16 MG/DL CREATININE (test code = 2214) 0.96 MG/DL eGFR (2020 CKD-EPI) (test co de = 81052) 69 ML/MIN/1.73 CALC BUN/CREAT (test code = [...] = 2219) 13 U/L Delfino Schumacher AustinLIPID [id number] 00:00:00* Test Item Value Reference Range Interpretation Comme nts CHOLESTEROL (test code = 2210) 183 MG/DL TRIGLYCERIDES (test code = 2232) 69 MG/DL HDL CHOLESTEROL (test code = 2220) 93 MG/DL CALC LDL CHOL (test code = 2237) 75 MG/DL RISK RATIO LDL/HDL (test cod e = 2238) 0.81 RATIO Delfino Schumacher AustinCOMPREHENSIVE METABOLIC [id number] 00:00:00* Test Item Value Reference Range Interpretation Comme nts GLUCOSE (test code = 2217) 74 MG/DL BUN (test code = 2208) 16 MG/DL CREATININE (test code = 2214) 0.96 MG/DL eGFR (2020 CKD-EPI) (test co de = 17465) 69 ML/MIN/1.73 CALC BUN/CREAT (test code = [...] = 2219) 13 U/L Delfino Schumacher AustinLIPID [id number] 00:00:00* Test Item Value Reference Range Interpretation Comme nts CHOLESTEROL (test code = 2210) 183 MG/DL TRIGLYCERIDES (test code = 2232) 69 MG/DL HDL CHOLESTEROL (test code = 2220) 93 MG/DL CALC LDL CHOL (test code = 2237) 75 MG/DL RISK RATIO LDL/HDL (test cod e = 2238) 0.81 RATIO Delfino Schumacher AustinCOMPREHENSIVE METABOLIC [id number] 00:00:00* Test Item Value Reference Range Interpretation Comme nts GLUCOSE (test code = 2217) 74 MG/DL BUN (test code = 2208) 16 MG/DL CREATININE (test code = 2214) 0.96 MG/DL eGFR (2020 CKD-EPI) (test co de = 13790) 69 ML/MIN/1.73 CALC BUN/CREAT (test code = [...] code = 2219) 13 U/L Delfino Schumacher BaileyLIPID [id number] 00:00:00* Test Item Value Reference Range Interpretation Comme nts CHOLESTEROL (test code = 2210) 183 MG/DL TRIGLYCERIDES (test code = 2232) 69 MG/DL HDL CHOLESTEROL (test code = 2220) 93 MG/DL CALC LDL CHOL (test code = 2237) 75 MG/DL RISK RATIO LDL/HDL (test cod e = 2238) 0.81 RATIO Delfino Schumacher YouCOMPREHENSIVE METABOLIC [id number] 00:00:00* Test Item Value Reference Range Interpretation Comme nts GLUCOSE (test code = 2217) 74 MG/DL BUN (test code = 2208) 16 MG/DL CREATININE (test code = 2214) 0.96 MG/DL eGFR (2020 CKD-EPI) (test co de = 91614) 69 ML/MIN/1.73 CALC BUN/CREAT (test code = [...] code = 2219) 13 U/L Delfino OrtaLIPID [id number] 00:00:00* Test Item Value Reference Range Interpretation Comme nts CHOLESTEROL (test code = 2210) 183 MG/DL TRIGLYCERIDES (test code = 2232) 69 MG/DL HDL CHOLESTEROL (test code = 2220) 93 MG/DL CALC LDL CHOL (test code = 2237) 75 MG/DL RISK RATIO LDL/HDL (test cod e = 2238) 0.81 RATIO Delfino OrtaCOMPREHENSIVE METABOLIC [id number] 00:00:00* Test Item Value Reference Range Interpretation Comme nts GLUCOSE (test code = 2217) 74 MG/DL BUN (test code = 2208) 16 MG/DL CREATININE (test code = 2214) 0.96 MG/DL eGFR (2020 CKD-EPI) (test co de = 71799) 69 ML/MIN/1.73 CALC BUN/CREAT (test code = [...] code = 2219) 13 U/L Delfino OrtaLIPID [id number] 00:00:00* Test Item Value Reference Range Interpretation Comme nts CHOLESTEROL (test code = 2210) 183 MG/DL TRIGLYCERIDES (test code = 2232) 69 MG/DL HDL CHOLESTEROL (test code = 2220) 93 MG/DL CALC LDL CHOL (test code = 2237) 75 MG/DL RISK RATIO LDL/HDL (test cod e = 2238) 0.81 RATIO Delfino Schumacher AustinCOMPREHENSIVE METABOLIC [id number] 00:00:00* Test Item Value Reference Range Interpretation Comme nts GLUCOSE (test code = 2217) 74 MG/DL BUN (test code = 2208) 16 MG/DL CREATININE (test code = 2214) 0.96 MG/DL eGFR (2020 CKD-EPI) (test co de = 61833) 69 ML/MIN/1.73 CALC BUN/CREAT (test code = [...] = 2219) 13 U/L Delfino Schumacher AustinLIPID [id number] 00:00:00* Test Item Value Reference Range Interpretation Comme nts CHOLESTEROL (test code = 2210) 183 MG/DL TRIGLYCERIDES (test code = 2232) 69 MG/DL HDL CHOLESTEROL (test code = 2220) 93 MG/DL CALC LDL CHOL (test code = 2237) 75 MG/DL RISK RATIO LDL/HDL (test cod e = 2238) 0.81 RATIO Delfino Schumacher AustinCOMPREHENSIVE METABOLIC [id number] 00:00:00* Test Item Value Reference Range Interpretation Comme nts GLUCOSE (test code = 2217) 74 MG/DL BUN (test code = 2208) 16 MG/DL CREATININE (test code = 2214) 0.96 MG/DL eGFR (2020 CKD-EPI) (test co de = 01909) 69 ML/MIN/1.73 CALC BUN/CREAT (test code = [...] code = 2219) 13 U/L Delfino Endy BaileyLIPID [id number] 00:00:00* Test Item Value Reference Range Interpretation Comme nts CHOLESTEROL (test code = 2210) 183 MG/DL TRIGLYCERIDES (test code = 2232) 69 MG/DL HDL CHOLESTEROL (test code = 2220) 93 MG/DL CALC LDL CHOL (test code = 2237) 75 MG/DL RISK RATIO LDL/HDL (test cod e = 2238) 0.81 RATIO Delfino F YouCOMPREHENSIVE METABOLIC [id number] 00:00:00* Test Item Value Reference Range Interpretation Comme nts GLUCOSE (test code = 2217) 74 MG/DL BUN (test code = 2208) 16 MG/DL CREATININE (test code = 2214) 0.96 MG/DL eGFR (2020 CKD-EPI) (test co de = 52023) 69 ML/MIN/1.73 CALC BUN/CREAT (test code = [...] code = 2219) 13 U/L Delfino OrtaLIPID [id number] 00:00:00* Test Item Value Reference Range Interpretation Comme nts CHOLESTEROL (test code = 2210) 183 MG/DL TRIGLYCERIDES (test code = 2232) 69 MG/DL HDL CHOLESTEROL (test code = 2220) 93 MG/DL CALC LDL CHOL (test code = 2237) 75 MG/DL RISK RATIO LDL/HDL (test cod e = 2238) 0.81 RATIO Delfino OrtaCOMPREHENSIVE METABOLIC [id number] 00:00:00* Test Item Value Reference Range Interpretation Comme nts GLUCOSE (test code = 2217) 74 MG/DL BUN (test code = 2208) 16 MG/DL CREATININE (test code = 2214) 0.96 MG/DL eGFR (2020 CKD-EPI) (test co de = 13312) 69 ML/MIN/1.73 CALC BUN/CREAT (test code = [...] 2219) 13 U/L Delfino Schumacher AustinCOMPREHENSIVE METABOLIC [id number] 00:00:00* Test Item Value Reference Range Interpretation Comme nts GLUCOSE (test code = 2217) 74 MG/DL BUN (test code = 2208) 16 MG/DL CREATININE (test code = 2214) 0.96 MG/DL eGFR (2020 CKD-EPI) (test co de = 14988) 69 ML/MIN/1.73 CALC BUN/CREAT (test code = [...] = 2219) 13 U/L Delfino Schumacher AustinLIPID [id number] 00:00:00* Test Item Value Reference Range Interpretation Comme nts CHOLESTEROL (test code = 2210) 183 MG/DL TRIGLYCERIDES (test code = 2232) 69 MG/DL HDL CHOLESTEROL (test code = 2220) 93 MG/DL CALC LDL CHOL (test code = 2237) 75 MG/DL RISK RATIO LDL/HDL (test cod e = 2238) 0.81 RATIO Delfino F AustinCOMPREHENSIVE METABOLIC [id number] 00:00:00* Test Item Value Reference Range Interpretation Comme nts GLUCOSE (test code = 2217) 74 MG/DL BUN (test code = 2208) 16 MG/DL CREATININE (test code = 2214) 0.96 MG/DL eGFR (2020 CKD-EPI) (test co de = 60440) 69 ML/MIN/1.73 CALC BUN/CREAT (test code = [...] = 2219) 13 U/L Delfino Schumacher AustinLIPID [id number] 00:00:00* Test Item Value Reference Range Interpretation Comme nts CHOLESTEROL (test code = 2210) 183 MG/DL TRIGLYCERIDES (test code = 2232) 69 MG/DL HDL CHOLESTEROL (test code = 2220) 93 MG/DL CALC LDL CHOL (test code = 2237) 75 MG/DL RISK RATIO LDL/HDL (test cod e = 2238) 0.81 RATIO Delfino Schumacher AustinLIPID [id number] 00:00:00* Test Item Value Reference Range Interpretation Comme nts CHOLESTEROL (test code = 2210) 183 MG/DL TRIGLYCERIDES (test code = 2232) 69 MG/DL HDL CHOLESTEROL (test code = 2220) 93 MG/DL CALC LDL CHOL (test code = 2237) 75 MG/DL RISK RATIO LDL/HDL (test cod e = 2238) 0.81 RATIO Delfino Schumacher AustinCOMPREHENSIVE METABOLIC [id number] 00:00:00* Test Item Value Reference Range Interpretation Comme nts GLUCOSE (test code = 2217) 74 MG/DL BUN (test code = 2208) 16 MG/DL CREATININE (test code = 2214) 0.96 MG/DL eGFR (2020 CKD-EPI) (test co de = 11702) 69 ML/MIN/1.73 CALC BUN/CREAT (test code = [...] code = 2219) 13 U/L Delfino Cedeño [id number] 09:14:59SPECIMEN NUMBER: [id number] CULTURE, URINE SPECIMEN NUMBER: [id number] SPECIMEN COMMENT: URINE SOURCE: URINE REPORT STATUS: FINAL FINAL REPORT: 07/05/2021 >100,000 CFU/ML MIXED MICROBIAL POPULATION PRESENT, NO PREDOMINATING ORGANISMS;PROBABLE CONTAMINANTS.CULTURE, [id number] 00:00:00* Test Item Value Reference Range Interpretation Comme nts CULTURE, URINE (test code = 73171) SPECIMEN NUMBER: [id number] Delfino Cedeño [id number] 00:00:00* Test Item Value Reference Range Interpretation Comme nts CULTURE, URINE (test code = 99201) SPECIMEN NUMBER: [id number] Delfino Cedeño [id number] 00:00:00* Test Item Value Reference Range Interpretation Comme nts CULTURE, URINE (test code = 77747) SPECIMEN NUMBER: [id number] Delfino Cedeño, [id number] 00:00:00* Test Item Value Reference Range Interpretation Comme nts CULTURE, URINE (test code = 21454) SPECIMEN NUMBER: [id number] Delfino Cedeño, [id number] 00:00:00* Test Item Value Reference Range Interpretation Comme nts CULTURE, URINE (test code = 55217) SPECIMEN NUMBER: [id number] CULTURE, [id number] 00:00:00* Test Item Value Reference Range Interpretation Comme nts CULTURE, URINE (test code = 79459) SPECIMEN NUMBER: [id number] CULTURE, [id number] 00:00:00* Test Item Value Reference Range Interpretation Comme nts CULTURE, URINE (test code = 32495) SPECIMEN NUMBER: [id number] Delfino Cedeño, [id number] 00:00:00* Test Item Value Reference Range Interpretation Comme nts CULTURE, URINE (test code = 16418) SPECIMEN NUMBER: [id number] Delfino Cedeño, [id number] 00:00:00* Test Item Value Reference Range Interpretation Comme nts CULTURE, URINE (test code = 31642) SPECIMEN NUMBER: [id number] CULTURE, [id number] 00:00:00* Test Item Value Reference Range Interpretation Comme nts CULTURE, URINE (test code = 85591) SPECIMEN NUMBER: [id number] AUBREY [id number] 00:00:00* Test Item Value Reference Range Interpretation Comme nts CULTURE, URINE (test code = 43624) SPECIMEN NUMBER: [id number] Delfino Cedeño, [id number] 00:00:00* Test Item Value Reference Range Interpretation Comme nts CULTURE, URINE (test code = 20690) SPECIMEN NUMBER: [id number] Delfino Cedeño, [id number] 00:00:00* Test Item Value Reference Range Interpretation Comme nts CULTURE, URINE (test code = 57151) SPECIMEN NUMBER: [id number] Delfino Cedeño, [id number] 00:00:00* Test Item Value Reference Range Interpretation Comme nts CULTURE, URINE (test code = 61755) SPECIMEN NUMBER: [id number] Delfino SarmientoLTNIALL, [id number] 00:00:00* Test Item Value Reference Range Interpretation Comme nts CULTURE, URINE (test code = 60743) SPECIMEN NUMBER: [id number] Delfino SarmientoLTNIALL, [id number] 00:00:00* Test Item Value Reference Range Interpretation Comme nts CULTURE, URINE (test code = 46705) SPECIMEN NUMBER: [id number] Delfino SarmientoLTNIALL, [id number] 00:00:00* Test Item Value Reference Range Interpretation Comme nts CULTURE, URINE (test code = 51442) SPECIMEN NUMBER: [id number] Delfino Cedeño, [id number] 00:00:00* Test Item Value Reference Range Interpretation Comme nts CULTURE, URINE (test code = 39729) SPECIMEN NUMBER: [id number] Delfino Cedeño [id number] 00:00:00* Test Item Value Reference Range Interpretation Comme nts CULTURE, URINE (test code = 62443) SPECIMEN NUMBER: [id number] Delfino Cedeño, [id number] 00:00:00* Test Item Value Reference Range Interpretation Comme nts CULTURE, URINE (test code = 56530) SPECIMEN NUMBER: [id number] Delfino Cedeño [id number] 00:00:00* Test Item Value Reference Range Interpretation Comme nts CULTURE, URINE (test code = 69419) SPECIMEN NUMBER: [id number] Delfino Cedeño, [id number] 00:00:00* Test Item Value Reference Range Interpretation Comme nts CULTURE, URINE (test code = 50059) SPECIMEN NUMBER: [id number] Delfino Cedeño, [id number] 00:00:00* Test Item Value Reference Range Interpretation Comme nts CULTURE, URINE (test code = 49702) SPECIMEN NUMBER: [id number] Delfino Cedeño, [id number] 00:00:00* Test Item Value Reference Range Interpretation Comme nts CULTURE, URINE (test code = 75003) SPECIMEN NUMBER: [id number] Delfino Cedeño, [id number] 00:00:00* Test Item Value Reference Range Interpretation Comme nts CULTURE, URINE (test code = 23203) SPECIMEN NUMBER: [id number] Delfino SarmientoLTNIALL, [id number] 00:00:00* Test Item Value Reference Range Interpretation Comme nts CULTURE, URINE (test code = 81022) SPECIMEN NUMBER: [id number] Delfino SarmientoLTNIALL, [id number] 00:00:00* Test Item Value Reference Range Interpretation Comme nts CULTURE, URINE (test code = 32796) SPECIMEN NUMBER: [id number] Delfino Schumacher AustinVAGINAL PATHOGENS DNA [id number] 15:31:31* Test Item Value Reference Range Interpretation Comme nts DIANNA SPECIES (test code = ) NEGATIVE NEGATIVE G. VAGINALIS (test code = 68174) NEGATIVE NEGATIVE T. VAGINALIS (test code = 96139) NEGATIVE NEGATIVE UNLESS OTHERWISE INDICATED, ALL TESTING PERFORMED [facility] [employer], [facility]. [address] [place] [address] REGULATORY SPECIALIST: ALYSSIA FRASER M.D. [place] NUMBER [id number] [facility]. [id number] VAGINAL PATHOGENS DNA [id number] 00:00:00* Test Item Value Reference Range Interpretation Comme nts DIANNA SPECIES (test code = 75165) NEGATIVE G. VAGINALIS (test code = 02484) NEGATIVE T. VAGINALIS (test code = 89634) NEGATIVE Delfino Schumacher AustinVAGINAL PATHOGENS DNA [id number] 00:00:00* Test Item Value Reference Range Interpretation Comme nts DIANNA SPECIES (test code = 66741) NEGATIVE G. VAGINALIS (test code = 33701) NEGATIVE T. VAGINALIS (test code = 22765) NEGATIVE Delfino Schumacher AustinVAGINAL PATHOGENS DNA [id number] 00:00:00* Test Item Value Reference Range Interpretation Comme nts DIANNA SPECIES (test code = 10640) NEGATIVE G. VAGINALIS (test code = 03282) NEGATIVE T. VAGINALIS (test code = 64287) NEGATIVE Delfino Schumacher AustinVAGINAL PATHOGENS DNA [id number] 00:00:00* Test Item Value Reference Range Interpretation Comme nts DIANNA SPECIES (test code = 92772) NEGATIVE G. VAGINALIS (test code = 60122) NEGATIVE T. VAGINALIS (test code = 16019) NEGATIVE Delfino Endy AustinVAGINAL PATHOGENS DNA [id number] 00:00:00* Test Item Value Reference Range Interpretation Comme nts DIANNA SPECIES (test code = 49738) NEGATIVE G. VAGINALIS (test code = 16856) NEGATIVE T. VAGINALIS (test code = 04257) NEGATIVE Delfino F AustinVAGINAL PATHOGENS DNA [id number] 00:00:00* Test Item Value Reference Range Interpretation Comme nts DIANNA SPECIES (test code = 12028) NEGATIVE G. VAGINALIS (test code = 05833) NEGATIVE T. VAGINALIS (test code = ) NEGATIVE Delfino F AustinVAGINAL PATHOGENS DNA [id number] 00:00:00* Test Item Value Reference Range Interpretation Comme nts DIANNA SPECIES (test code = 16461) NEGATIVE G. VAGINALIS (test code = 93618) NEGATIVE T. VAGINALIS (test code = 26886) NEGATIVE VAGINAL PATHOGENS DNA [id number] 00:00:00* Test Item Value Reference Range Interpretation Comme nts DIANNA SPECIES (test code = 39171) NEGATIVE G. VAGINALIS (test code = 00323) NEGATIVE T. VAGINALIS (test code = 21275) NEGATIVE Delfino F AustinVAGINAL PATHOGENS DNA [id number] 00:00:00* Test Item Value Reference Range Interpretation Comme nts DIANNA SPECIES (test code = ) NEGATIVE G. VAGINALIS (test code = 23072) NEGATIVE T. VAGINALIS (test code = 47117) NEGATIVE VAGINAL PATHOGENS DNA [id number] 00:00:00* Test Item Value Reference Range Interpretation Comme nts DIANNA SPECIES (test code = ) NEGATIVE G. VAGINALIS (test code = 21195) NEGATIVE T. VAGINALIS (test code = 22045) NEGATIVE Delfino F AustinVAGINAL PATHOGENS DNA [id number] 00:00:00* Test Item Value Reference Range Interpretation Comme nts DIANNA SPECIES (test code = ) NEGATIVE G. VAGINALIS (test code = 07525) NEGATIVE T. VAGINALIS (test code = 44003) NEGATIVE VAGINAL PATHOGENS DNA [id number] 00:00:00* Test Item Value Reference Range Interpretation Comme nts DIANNA SPECIES (test code = 82646) NEGATIVE G. VAGINALIS (test code = 05241) NEGATIVE T. VAGINALIS (test code = 55524) NEGATIVE VAGINAL PATHOGENS DNA [id number] 00:00:00* Test Item Value Reference Range Interpretation Comme nts DIANNA SPECIES (test code = 34079) NEGATIVE G. VAGINALIS (test code = 95545) NEGATIVE T. VAGINALIS (test code = 61930) NEGATIVE Delfino F AustinVAGINAL PATHOGENS DNA [id number] 00:00:00* Test Item Value Reference Range Interpretation Comme nts DIANNA SPECIES (test code = 56441) NEGATIVE G. VAGINALIS (test code = 26617) NEGATIVE T. VAGINALIS (test code = ) NEGATIVE Delfino F AustinVAGINAL PATHOGENS DNA [id number] 00:00:00* Test Item Value Reference Range Interpretation Comme nts DIANNA SPECIES (test code = 50714) NEGATIVE G. VAGINALIS (test code = 18988) NEGATIVE T. VAGINALIS (test code = 22658) NEGATIVE Delfino F AustinVAGINAL PATHOGENS DNA [id number] 00:00:00* Test Item Value Reference Range Interpretation Comme nts DIANNA SPECIES (test code = 87582) NEGATIVE G. VAGINALIS (test code = 59770) NEGATIVE T. VAGINALIS (test code = 88778) NEGATIVE Delfino F AustinVAGINAL PATHOGENS DNA [id number] 00:00:00* Test Item Value Reference Range Interpretation Comme nts DIANNA SPECIES (test code = 93958) NEGATIVE G. VAGINALIS (test code = 27555) NEGATIVE T. VAGINALIS (test code = 57250) NEGATIVE Delfino F AustinVAGINAL PATHOGENS DNA [id number] 00:00:00* Test Item Value Reference Range Interpretation Comme nts DIANNA SPECIES (test code = 67532) NEGATIVE G. VAGINALIS (test code = 31909) NEGATIVE T. VAGINALIS (test code = 67180) NEGATIVE Delfino F AustinVAGINAL PATHOGENS DNA [id number] 00:00:00* Test Item Value Reference Range Interpretation Comme nts DIANNA SPECIES (test code = ) NEGATIVE G. VAGINALIS (test code = 59950) NEGATIVE T. VAGINALIS (test code = 60019) NEGATIVE Delfino F AustinVAGINAL PATHOGENS DNA [id number] 00:00:00* Test Item Value Reference Range Interpretation Comme nts DIANNA SPECIES (test code = 40528) NEGATIVE G. VAGINALIS (test code = 91875) NEGATIVE T. VAGINALIS (test code = 37934) NEGATIVE Delfino F AustinVAGINAL PATHOGENS DNA [id number] 00:00:00* Test Item Value Reference Range Interpretation Comme nts DIANNA SPECIES (test code = 17550) NEGATIVE G. VAGINALIS (test code = 42496) NEGATIVE T. VAGINALIS (test code = 50744) NEGATIVE Delfino F AustinVAGINAL PATHOGENS DNA [id number] 00:00:00* Test Item Value Reference Range Interpretation Comme nts DIANNA SPECIES (test code = 00186) NEGATIVE G. VAGINALIS (test code = 08067) NEGATIVE T. VAGINALIS (test code = 39689) NEGATIVE Delfino Schumacher AustinVAGINAL PATHOGENS DNA [id number] 00:00:00* Test Item Value Reference Range Interpretation Comme nts DIANNA SPECIES (test code = 95440) NEGATIVE G. VAGINALIS (test code = 48043) NEGATIVE T. VAGINALIS (test code = 14610) NEGATIVE Delfino Schumacher AustinVAGINAL PATHOGENS DNA [id number] 00:00:00* Test Item Value Reference Range Interpretation Comme nts DIANNA SPECIES (test code = 72175) NEGATIVE G. VAGINALIS (test code = 78500) NEGATIVE T. VAGINALIS (test code = 99638) NEGATIVE Delfino Schumacher AustinVAGINAL PATHOGENS DNA [id number] 00:00:00* Test Item Value Reference Range Interpretation Comme nts DIANNA SPECIES (test code = 64093) NEGATIVE G. VAGINALIS (test code = 22940) NEGATIVE T. VAGINALIS (test code = 02131) NEGATIVE Delfino Schumacher AustinVAGINAL PATHOGENS DNA [id number] 00:00:00* Test Item Value Reference Range Interpretation Comme nts DIANNA SPECIES (test code = 65501) NEGATIVE G. VAGINALIS (test code = 85101) NEGATIVE T. VAGINALIS (test code = 12098) NEGATIVE Delfino Schumacher AustinVAGINAL PATHOGENS DNA [id number] 00:00:00* Test Item Value Reference Range Interpretation Comme nts DIANNA SPECIES (test code = ) NEGATIVE G. VAGINALIS (test code = 33788) NEGATIVE T. VAGINALIS (test code = 64816) NEGATIVE Delfino SarmientoLTURE, [id number] 12:43:02SPECIMEN NUMBER: [id number] CULTURE, URINE SPECIMEN NUMBER: [id number] SPECIMEN COMMENT: URINE SOURCE: URINE REPORT STATUS: FINAL ISOLATE NUMBER 1: ORGANISM: 04/28/2021 10-50,000 CFU/ML ENTEROCOCCUS SPECIES (GROUP D) IDENTIFICATION: 04/29/2021 ENTEROCOCCUS SPECIES (GROUP D) ENTEROCOCCUS SP. AMPICILLIN SENSITIVE <=2CIPROFLOXACIN SENSITIVE <=1LEVOFLOXACIN SENSITIVE 1NITROFURANTOIN SENSITIVE <=32TETRACYCLINE RESISTANT >8VANCOMYCIN SENSITIVE 2 NOTE: NUMBERS DISPLAYED REPRESENT MINIMUM INHIBITORY CONCENTRATION ([place]) WHICH IS EXPRESSED IN MCG/ML. CULTURE, [id number] 00:00:00* Test Item Value Reference Range Interpretation Comme nts CULTURE, URINE (test code = 29665) SPECIMEN NUMBER: [id number] Delfino Cedeño, [id number] 00:00:00* Test Item Value Reference Range Interpretation Comme nts CULTURE, URINE (test code = 32458) SPECIMEN NUMBER: [id number] Delfino Cedeño, [id number] 00:00:00* Test Item Value Reference Range Interpretation Comme nts CULTURE, URINE (test code = 00113) SPECIMEN NUMBER: [id number] Delfino SarmientoLTNIALL, [id number] 00:00:00* Test Item Value Reference Range Interpretation Comme nts CULTURE, URINE (test code = 13141) SPECIMEN NUMBER: [id number] Delfino Cedeño, [id number] 00:00:00* Test Item Value Reference Range Interpretation Comme nts CULTURE, URINE (test code = 67718) SPECIMEN NUMBER: [id number] CULTURE, [id number] 00:00:00* Test Item Value Reference Range Interpretation Comme nts CULTURE, URINE (test code = 00043) SPECIMEN NUMBER: [id number] Delfino SarmientoLTNIALL, [id number] 00:00:00* Test Item Value Reference Range Interpretation Comme nts CULTURE, URINE (test code = 62872) SPECIMEN NUMBER: [id number] CULTURE, [id number] 00:00:00* Test Item Value Reference Range Interpretation Comme nts CULTURE, URINE (test code = 00504) SPECIMEN NUMBER: [id number] Delfino SarmientoLTNIALL, [id number] 00:00:00* Test Item Value Reference Range Interpretation Comme nts CULTURE, URINE (test code = 32364) SPECIMEN NUMBER: [id number] CULTURE, [id number] 00:00:00* Test Item Value Reference Range Interpretation Comme nts CULTURE, URINE (test code = 58717) SPECIMEN NUMBER: [id number] CULTURE, [id number] 00:00:00* Test Item Value Reference Range Interpretation Comme nts CULTURE, URINE (test code = 97902) SPECIMEN NUMBER: [id number] Delfino Cedeño, [id number] 00:00:00* Test Item Value Reference Range Interpretation Comme nts CULTURE, URINE (test code = 51242) SPECIMEN NUMBER: [id number] Delfino Cedeño, [id number] 00:00:00* Test Item Value Reference Range Interpretation Comme nts CULTURE, URINE (test code = 07433) SPECIMEN NUMBER: [id number] Delfino Cedeño [id number] 00:00:00* Test Item Value Reference Range Interpretation Comme nts CULTURE, URINE (test code = 45761) SPECIMEN NUMBER: [id number] Delfino Cedeño [id number] 00:00:00* Test Item Value Reference Range Interpretation Comme nts CULTURE, URINE (test code = 62357) SPECIMEN NUMBER: [id number] Delfino Cedeño, [id number] 00:00:00* Test Item Value Reference Range Interpretation Comme nts CULTURE, URINE (test code = 78869) SPECIMEN NUMBER: [id number] Delfino Cedeño, [id number] 00:00:00* Test Item Value Reference Range Interpretation Comme nts CULTURE, URINE (test code = 80003) SPECIMEN NUMBER: [id number] Delfino Cedeño, [id number] 00:00:00* Test Item Value Reference Range Interpretation Comme nts CULTURE, URINE (test code = 61530) SPECIMEN NUMBER: [id number] Delfino Cedeño, [id number] 00:00:00* Test Item Value Reference Range Interpretation Comme nts CULTURE, URINE (test code = 65076) SPECIMEN NUMBER: [id number] Delfino Cedeño, [id number] 00:00:00* Test Item Value Reference Range Interpretation Comme nts CULTURE, URINE (test code = 33917) SPECIMEN NUMBER: [id number] Delfino Cedeño, [id number] 00:00:00* Test Item Value Reference Range Interpretation Comme nts CULTURE, URINE (test code = 20587) SPECIMEN NUMBER: [id number] Delfino Cedeño, [id number] 00:00:00* Test Item Value Reference Range Interpretation Comme nts CULTURE, URINE (test code = 67493) SPECIMEN NUMBER: [id number] Delfino Cedeño, [id number] 00:00:00* Test Item Value Reference Range Interpretation Comme nts CULTURE, URINE (test code = 18777) SPECIMEN NUMBER: [id number] Delfino Cedeño, [id number] 00:00:00* Test Item Value Reference Range Interpretation Comme nts CULTURE, URINE (test code = 18661) SPECIMEN NUMBER: [id number] Delfino OrtaCULTURE, [id number] 00:00:00* Test Item Value Reference Range Interpretation Comme nts CULTURE, URINE (test code = 10266) SPECIMEN NUMBER: [id number] Delfino Cedeño, [id number] 00:00:00* Test Item Value Reference Range Interpretation Comme nts CULTURE, URINE (test code = 53152) SPECIMEN NUMBER: [id number] Delfino Cedeño, [id number] 00:00:00* Test Item Value Reference Range Interpretation Comme nts CULTURE, URINE (test code = 76706) SPECIMEN NUMBER: [id number] Delfino OrtaURINALYSIS WITH [id number] 07:51:12* Test Item Value Reference Range Interpretation [...] code = 1510) 0.2 MG/DL See_Comment [Automated [employer]] The system which generated this result [...] 0-5 A EPITHELIAL CELLS (test code = 73458) 0-5 /HPF 0-10 BACTERIA (test code = 1515) 3+ NONE SEEN A CASTS, HYALINE (test code = 1517) TRACE NONE-TRACE UNLESS OTHERWISE INDICATED, ALL TESTING PERFORMED [facility] [address] [place] [address] REGULATORY SPECIALIST: ALYSSIA FRASER M.D. CLIA NUMBER [id number] [facility] [place]. [id number] URINALYSIS WITH [id number] 00:00:00* Test Item Value Reference Range Interpretation [...] >50 /HPF EPITHELIAL CELLS (test code = 46907) 0-5 /HPF BACTERIA (test code = 1515) 3+ CASTS, HYALINE (test code = 1517) TRACE Delfino Schumacher AustinURINALYSIS WITH [id number] 00:00:00* Test Item Value Reference Range Interpretation [...] >50 /HPF EPITHELIAL CELLS (test code = 95062) 0-5 /HPF BACTERIA (test code = 1515) 3+ CASTS, HYALINE (test code = 1517) TONY Schumacher AustinURINALYSIS WITH [id number] 00:00:00* Test Item Value Reference Range Interpretation [...] >50 /HPF EPITHELIAL CELLS (test code = 38804) 0-5 /HPF BACTERIA (test code = 1515) 3+ CASTS, HYALINE (test code = 1517) TONY Schumacher AustinURINALYSIS WITH [id number] 00:00:00* Test Item Value Reference Range Interpretation [...] >50 /HPF EPITHELIAL CELLS (test code = 83434) 0-5 /HPF BACTERIA (test code = 1515) 3+ CASTS, HYALINE (test code = 1517) TRACE Delfino Schumacher AustinURINALYSIS WITH [id number] 00:00:00* Test Item Value Reference Range Interpretation [...] >50 /HPF EPITHELIAL CELLS (test code = 58967) 0-5 /HPF BACTERIA (test code = 1515) 3+ CASTS, HYALINE (test code = 1517) TRACE URINALYSIS WITH [id number] 00:00:00* Test Item Value Reference Range Interpretation [...] >50 /HPF EPITHELIAL CELLS (test code = 42189) 0-5 /HPF BACTERIA (test code = 1515) 3+ CASTS, HYALINE (test code = 1517) TRACE Delfino Schumacher AustinURINALYSIS WITH [id number] 00:00:00* Test Item Value Reference Range Interpretation [...] >50 /HPF EPITHELIAL CELLS (test code = 27203) 0-5 /HPF BACTERIA (test code = 1515) 3+ CASTS, HYALINE (test code = 1517) TRACE URINALYSIS WITH [id number] 00:00:00* Test Item Value Reference Range Interpretation [...] >50 /HPF EPITHELIAL CELLS (test code = 40192) 0-5 /HPF BACTERIA (test code = 1515) 3+ CASTS, HYALINE (test code = 1517) TRACE Delfino F AustinURINALYSIS WITH [id number] 00:00:00* Test Item Value Reference Range Interpretation [...] >50 /HPF EPITHELIAL CELLS (test code = 55527) 0-5 /HPF BACTERIA (test code = 1515) 3+ CASTS, HYALINE (test code = 1517) TRACE URINALYSIS WITH [id number] 00:00:00* Test Item Value Reference Range Interpretation [...] >50 /HPF EPITHELIAL CELLS (test code = 07141) 0-5 /HPF BACTERIA (test code = 1515) 3+ CASTS, HYALINE (test code = 1517) TRACE URINALYSIS WITH [id number] 00:00:00* Test Item Value Reference Range Interpretation [...] >50 /HPF EPITHELIAL CELLS (test code = 81647) 0-5 /HPF BACTERIA (test code = 1515) 3+ CASTS, HYALINE (test code = 1517) TONY Schumacher AustinURINALYSIS WITH [id number] 00:00:00* Test Item Value Reference Range Interpretation [...] >50 /HPF EPITHELIAL CELLS (test code = 31766) 0-5 /HPF BACTERIA (test code = 1515) 3+ CASTS, HYALINE (test code = 1517) TONY Schumacher AustinURINALYSIS WITH [id number] 00:00:00* Test Item Value Reference Range Interpretation [...] >50 /HPF EPITHELIAL CELLS (test code = 63056) 0-5 /HPF BACTERIA (test code = 1515) 3+ CASTS, HYALINE (test code = 1517) TONY Schumacher AustinURINALYSIS WITH [id number] 00:00:00* Test Item Value Reference Range Interpretation [...] >50 /HPF EPITHELIAL CELLS (test code = 72421) 0-5 /HPF BACTERIA (test code = 1515) 3+ CASTS, HYALINE (test code = 1517) TNOY Schumacher AustinURINALYSIS WITH [id number] 00:00:00* Test Item Value Reference Range Interpretation [...] >50 /HPF EPITHELIAL CELLS (test code = 19136) 0-5 /HPF BACTERIA (test code = 1515) 3+ CASTS, HYALINE (test code = 1517) TONY Schumacher AustinURINALYSIS WITH [id number] 00:00:00* Test Item Value Reference Range Interpretation [...] >50 /HPF EPITHELIAL CELLS (test code = 11397) 0-5 /HPF BACTERIA (test code = 1515) 3+ CASTS, HYALINE (test code = 1517) TRACE Delfino Schumacher AustinURINALYSIS WITH [id number] 00:00:00* Test Item Value Reference Range Interpretation [...] >50 /HPF EPITHELIAL CELLS (test code = 92580) 0-5 /HPF BACTERIA (test code = 1515) 3+ CASTS, HYALINE (test code = 1517) TRACE Delfino F AustinURINALYSIS WITH [id number] 00:00:00* Test Item Value Reference Range Interpretation [...] >50 /HPF EPITHELIAL CELLS (test code = 10581) 0-5 /HPF BACTERIA (test code = 1515) 3+ CASTS, HYALINE (test code = 1517) TONY Schumacher AustinURINALYSIS WITH [id number] 00:00:00* Test Item Value Reference Range Interpretation [...] >50 /HPF EPITHELIAL CELLS (test code = 40256) 0-5 /HPF BACTERIA (test code = 1515) 3+ CASTS, HYALINE (test code = 1517) TONY Schumacher AustinURINALYSIS WITH [id number] 00:00:00* Test Item Value Reference Range Interpretation [...] >50 /HPF EPITHELIAL CELLS (test code = 88790) 0-5 /HPF BACTERIA (test code = 1515) 3+ CASTS, HYALINE (test code = 1517) TONY Schumacher AustinURINALYSIS WITH [id number] 00:00:00* Test Item Value Reference Range Interpretation [...] >50 /HPF EPITHELIAL CELLS (test code = 55376) 0-5 /HPF BACTERIA (test code = 1515) 3+ CASTS, HYALINE (test code = 1517) TONY Schumacher AustinURINALYSIS WITH [id number] 00:00:00* Test Item Value Reference Range Interpretation [...] >50 /HPF EPITHELIAL CELLS (test code = 30667) 0-5 /HPF BACTERIA (test code = 1515) 3+ CASTS, HYALINE (test code = 1517) TONY Schumacher AustinURINALYSIS WITH [id number] 00:00:00* Test Item Value Reference Range Interpretation [...] >50 /HPF EPITHELIAL CELLS (test code = 50674) 0-5 /HPF BACTERIA (test code = 1515) 3+ CASTS, HYALINE (test code = 1517) TONY OrtaURINALYSIS WITH [id number] 00:00:00* Test Item Value Reference Range Interpretation [...] >50 /HPF EPITHELIAL CELLS (test code = 75904) 0-5 /HPF BACTERIA (test code = 1515) 3+ CASTS, HYALINE (test code = 1517) TONY Schumacher AustinURINALYSIS WITH [id number] 00:00:00* Test Item Value Reference Range Interpretation [...] >50 /HPF EPITHELIAL CELLS (test code = 62504) 0-5 /HPF BACTERIA (test code = 1515) 3+ CASTS, HYALINE (test code = 1517) TRACE Delfino Schumacher AustinURINALYSIS WITH [id number] 00:00:00* Test Item Value Reference Range Interpretation [...] >50 /HPF EPITHELIAL CELLS (test code = 66078) 0-5 /HPF BACTERIA (test code = 1515) 3+ CASTS, HYALINE (test code = 1517) TRACE Delfino F AustinURINALYSIS WITH [id number] 00:00:00* Test Item Value Reference Range Interpretation [...] >50 /HPF EPITHELIAL CELLS (test code = 49583) 0-5 /HPF BACTERIA (test code = 1515) 3+ CASTS, HYALINE (test code = 1517) TRACE Delfino Schumacher AustinLIPID [id number] 00:00:00* Test Item Value Reference Range Interpretation Comme nts CHOLESTEROL (test code = 2210) 174 MG/DL TRIGLYCERIDES (test code = 2232) 63 MG/DL HDL CHOLESTEROL (test code = 2220) 87 MG/DL CALC LDL CHOL (test code = 2237) 73 MG/DL RISK RATIO LDL/HDL (test cod e = 2238) 0.84 RATIO Delfino OrtaCOMPREHENSIVE METABOLIC [id number] 00:00:00* Test Item Value Reference Range Interpretation Comme nts GLUCOSE (test code = 2217) 80 MG/DL BUN (test code = 2208) 18 MG/DL CREATININE (test code = 2214) 1.06 MG/DL eGFR AMER. (test cod e = 14203) 67 ML/MIN/1.73 eGFR NON- AMER. (test code = 43859) 58 ML/MIN/1.73 CALC BUN/CREAT (test code = [...] = 2219) 54 U/L Delfino OrtaCBC W/AUTO [id number] 00:00:00* Test Item Value Reference Range Interpretation [...] ABS NUCLEATED RBCS (test cod e = 81220) 0.00 K/UL COMMENTS (test code = 1016) (NOTE) Delfino OrtaLIPID [id number] 00:00:00* Test Item Value Reference Range Interpretation Comme nts CHOLESTEROL (test code = 2210) 174 MG/DL TRIGLYCERIDES (test code = 2232) 63 MG/DL HDL CHOLESTEROL (test code = 2220) 87 MG/DL CALC LDL CHOL (test code = 2237) 73 MG/DL RISK RATIO LDL/HDL (test cod e = 2238) 0.84 RATIO Delfino OrtaCOMPREHENSIVE METABOLIC [id number] 00:00:00* Test Item Value Reference Range Interpretation Comme nts GLUCOSE (test code = 2217) 80 MG/DL BUN (test code = 2208) 18 MG/DL CREATININE (test code = 2214) 1.06 MG/DL eGFR AMER. (test cod e = 34816) 67 ML/MIN/1.73 eGFR NON- AMER. (test code = 70171) 58 ML/MIN/1.73 CALC BUN/CREAT (test code = [...] = 2219) 54 U/L Delfino OrtaCBC W/AUTO [id number] 00:00:00* Test Item Value Reference Range Interpretation [...] ABS NUCLEATED RBCS (test cod e = 12720) 0.00 K/UL COMMENTS (test code = 1016) (NOTE) Delfino Schumacher YouCOMPREHENSIVE METABOLIC [id number] 00:00:00* Test Item Value Reference Range Interpretation Comme nts GLUCOSE (test code = 2217) 80 MG/DL BUN (test code = 2208) 18 MG/DL CREATININE (test code = 2214) 1.06 MG/DL eGFR AMER. (test cod e = 26850) 67 ML/MIN/1.73 eGFR NON- AMER. (test code = 90042) 58 ML/MIN/1.73 CALC BUN/CREAT (test code = [...] code = 2219) 54 U/L Delfino Schumacher YouLIPID [id number] 00:00:00* Test Item Value Reference Range Interpretation Comme nts CHOLESTEROL (test code = 2210) 174 MG/DL TRIGLYCERIDES (test code = 2232) 63 MG/DL HDL CHOLESTEROL (test code = 2220) 87 MG/DL CALC LDL CHOL (test code = 2237) 73 MG/DL RISK RATIO LDL/HDL (test cod e = 2238) 0.84 RATIO Delfino OrtaCOMPREHENSIVE METABOLIC [id number] 00:00:00* Test Item Value Reference Range Interpretation Comme nts GLUCOSE (test code = 2217) 80 MG/DL BUN (test code = 2208) 18 MG/DL CREATININE (test code = 2214) 1.06 MG/DL eGFR AMER. (test cod e = 20334) 67 ML/MIN/1.73 eGFR NON- AMER. (test code = 21848) 58 ML/MIN/1.73 CALC BUN/CREAT (test code = [...] = 2219) 54 U/L Delfino OrtaCBC W/AUTO [id number] 00:00:00* Test Item Value Reference Range Interpretation [...] ABS NUCLEATED RBCS (test cod e = 73276) 0.00 K/UL COMMENTS (test code = 1016) (NOTE) Delfino Schumacher AustinLIPID [id number] 00:00:00* Test Item Value Reference Range Interpretation Comme nts CHOLESTEROL (test code = 2210) 174 MG/DL TRIGLYCERIDES (test code = 2232) 63 MG/DL HDL CHOLESTEROL (test code = 2220) 87 MG/DL CALC LDL CHOL (test code = 2237) 73 MG/DL RISK RATIO LDL/HDL (test cod e = 2238) 0.84 RATIO Delfino OrtaCOMPREHENSIVE METABOLIC [id number] 00:00:00* Test Item Value Reference Range Interpretation Comme nts GLUCOSE (test code = 2217) 80 MG/DL BUN (test code = 2208) 18 MG/DL CREATININE (test code = 2214) 1.06 MG/DL eGFR AMER. (test cod e = 58074) 67 ML/MIN/1.73 eGFR NON- AMER. (test code = 21814) 58 ML/MIN/1.73 CALC BUN/CREAT (test code = [...] (test code = 2219) 54 U/L [facility] [id number] 00:00:00* Test Item Value Reference Range Interpretation [...] ABS NUCLEATED RBCS (test cod e = 58262) 0.00 K/UL COMMENTS (test code = 1016) (NOTE) CBC W/AUTO [id number] 00:00:00* Test Item Value Reference Range Interpretation [...] ABS NUCLEATED RBCS (test cod e = 22387) 0.00 K/UL COMMENTS (test code = 1016) (NOTE) Delfino Schumacher AustinLIPID [id number] 00:00:00* Test Item Value Reference Range Interpretation Comme nts CHOLESTEROL (test code = 2210) 174 MG/DL TRIGLYCERIDES (test code = 2232) 63 MG/DL HDL CHOLESTEROL (test code = 2220) 87 MG/DL CALC LDL CHOL (test code = 2237) 73 MG/DL RISK RATIO LDL/HDL (test cod e = 2238) 0.84 RATIO LIPID [id number] 00:00:00* Test Item Value Reference Range Interpretation Comme nts CHOLESTEROL (test code = 2210) 174 MG/DL TRIGLYCERIDES (test code = 2232) 63 MG/DL HDL CHOLESTEROL (test code = 2220) 87 MG/DL CALC LDL CHOL (test code = 2237) 73 MG/DL RISK RATIO LDL/HDL (test cod e = 2238) 0.84 RATIO Delfino OrtaCOMPREHENSIVE METABOLIC [id number] 00:00:00* Test Item Value Reference Range Interpretation Comme nts GLUCOSE (test code = 2217) 80 MG/DL BUN (test code = 2208) 18 MG/DL CREATININE (test code = 2214) 1.06 MG/DL eGFR AMER. (test cod e = 43328) 67 ML/MIN/1.73 eGFR NON- AMER. (test code = 36286) 58 ML/MIN/1.73 CALC BUN/CREAT (test code = [...] (test code = 2219) 54 U/L Delfino OrtaCOMPREHENSIVE METABOLIC [id number] 00:00:00* Test Item Value Reference Range Interpretation Comme nts GLUCOSE (test code = 2217) 80 MG/DL BUN (test code = 2208) 18 MG/DL CREATININE (test code = 2214) 1.06 MG/DL eGFR AMER. (test cod e = 94166) 67 ML/MIN/1.73 eGFR NON- AMER. (test code = 16816) 58 ML/MIN/1.73 CALC BUN/CREAT (test code = [...] code = 2219) 54 U/L CBC W/AUTO [id number] 00:00:00* Test Item Value Reference Range Interpretation [...] ABS NUCLEATED RBCS (test cod e = 69845) 0.00 K/UL COMMENTS (test code = 1016) (NOTE) CBC W/AUTO [id number] 00:00:00* Test Item Value Reference Range Interpretation [...] ABS NUCLEATED RBCS (test cod e = 80820) 0.00 K/UL COMMENTS (test code = 1016) (NOTE) Delfino Schumacher AustinLIPID [id number] 00:00:00* Test Item Value Reference Range Interpretation Comme nts CHOLESTEROL (test code = 2210) 174 MG/DL TRIGLYCERIDES (test code = 2232) 63 MG/DL HDL CHOLESTEROL (test code = 2220) 87 MG/DL CALC LDL CHOL (test code = 2237) 73 MG/DL RISK RATIO LDL/HDL (test cod e = 2238) 0.84 RATIO LIPID [id number] 00:00:00* Test Item Value Reference Range Interpretation Comme nts CHOLESTEROL (test code = 2210) 174 MG/DL TRIGLYCERIDES (test code = 2232) 63 MG/DL HDL CHOLESTEROL (test code = 2220) 87 MG/DL CALC LDL CHOL (test code = 2237) 73 MG/DL RISK RATIO LDL/HDL (test cod e = 2238) 0.84 RATIO Delfino OrtaCOMPREHENSIVE METABOLIC [id number] 00:00:00* Test Item Value Reference Range Interpretation Comme nts GLUCOSE (test code = 2217) 80 MG/DL BUN (test code = 2208) 18 MG/DL CREATININE (test code = 2214) 1.06 MG/DL eGFR AMER. (test cod e = 23839) 67 ML/MIN/1.73 eGFR NON- AMER. (test code = 31018) 58 ML/MIN/1.73 CALC BUN/CREAT (test code = [...] code = 2219) 54 U/L Delfino Schumacher AustinCOMPREHENSIVE METABOLIC [id number] 00:00:00* Test Item Value Reference Range Interpretation Comme nts GLUCOSE (test code = 2217) 80 MG/DL BUN (test code = 2208) 18 MG/DL CREATININE (test code = 2214) 1.06 MG/DL eGFR AMER. (test cod e = 80593) 67 ML/MIN/1.73 eGFR NON- AMER. (test code = 69620) 58 ML/MIN/1.73 CALC BUN/CREAT (test code = [...] code = 2219) 54 U/L CBC W/AUTO [id number] 00:00:00* Test Item Value Reference Range Interpretation [...] ABS NUCLEATED RBCS (test cod e = 83962) 0.00 K/UL COMMENTS (test code = 1016) (NOTE) Delfino Schumacher [facility] W/AUTO [id number] 00:00:00* Test Item Value Reference Range Interpretation [...] ABS NUCLEATED RBCS (test cod e = 16123) 0.00 K/UL COMMENTS (test code = 1016) (NOTE) LIPID [id number] 00:00:00* Test Item Value Reference Range Interpretation Comme nts CHOLESTEROL (test code = 2210) 174 MG/DL TRIGLYCERIDES (test code = 2232) 63 MG/DL HDL CHOLESTEROL (test code = 2220) 87 MG/DL CALC LDL CHOL (test code = 2237) 73 MG/DL RISK RATIO LDL/HDL (test cod e = 2238) 0.84 RATIO LIPID [id number] 00:00:00* Test Item Value Reference Range Interpretation Comme nts CHOLESTEROL (test code = 2210) 174 MG/DL TRIGLYCERIDES (test code = 2232) 63 MG/DL HDL CHOLESTEROL (test code = 2220) 87 MG/DL CALC LDL CHOL (test code = 2237) 73 MG/DL RISK RATIO LDL/HDL (test cod e = 2238) 0.84 RATIO Delfino OrtaCOMPREHENSIVE METABOLIC [id number] 00:00:00* Test Item Value Reference Range Interpretation Comme nts GLUCOSE (test code = 2217) 80 MG/DL BUN (test code = 2208) 18 MG/DL CREATININE (test code = 2214) 1.06 MG/DL eGFR AMER. (test cod e = 17017) 67 ML/MIN/1.73 eGFR NON- AMER. (test code = 29358) 58 ML/MIN/1.73 CALC BUN/CREAT (test code = [...] code = 2219) 54 U/L COMPREHENSIVE METABOLIC [id number] 00:00:00* Test Item Value Reference Range Interpretation Comme nts GLUCOSE (test code = 2217) 80 MG/DL BUN (test code = 2208) 18 MG/DL CREATININE (test code = 2214) 1.06 MG/DL eGFR AMER. (test cod e = 57177) 67 ML/MIN/1.73 eGFR NON- AMER. (test code = 30847) 58 ML/MIN/1.73 CALC BUN/CREAT (test code = [...] code = 2219) 54 U/L Delfino Schumacher [facility] W/AUTO [id number] 00:00:00* Test Item Value Reference Range Interpretation [...] ABS NUCLEATED RBCS (test cod e = 64781) 0.00 K/UL COMMENTS (test code = 1016) (NOTE) CBC W/AUTO [id number] 00:00:00* Test Item Value Reference Range Interpretation [...] ABS NUCLEATED RBCS (test cod e = 89093) 0.00 K/UL COMMENTS (test code = 1016) (NOTE) Delfino Schumacher AustinLIPID [id number] 00:00:00* Test Item Value Reference Range Interpretation Comme nts CHOLESTEROL (test code = 2210) 174 MG/DL TRIGLYCERIDES (test code = 2232) 63 MG/DL HDL CHOLESTEROL (test code = 2220) 87 MG/DL CALC LDL CHOL (test code = 2237) 73 MG/DL RISK RATIO LDL/HDL (test cod e = 2238) 0.84 RATIO COMPREHENSIVE METABOLIC [id number] 00:00:00* Test Item Value Reference Range Interpretation Comme nts GLUCOSE (test code = 2217) 80 MG/DL BUN (test code = 2208) 18 MG/DL CREATININE (test code = 2214) 1.06 MG/DL eGFR AMER. (test cod e = 57045) 67 ML/MIN/1.73 eGFR NON- AMER. (test code = 47561) 58 ML/MIN/1.73 CALC BUN/CREAT (test code = [...] (test code = 2219) 54 U/L LIPID [id number] 00:00:00* Test Item Value Reference Range Interpretation Comme nts CHOLESTEROL (test code = 2210) 174 MG/DL TRIGLYCERIDES (test code = 2232) 63 MG/DL HDL CHOLESTEROL (test code = 2220) 87 MG/DL CALC LDL CHOL (test code = 2237) 73 MG/DL RISK RATIO LDL/HDL (test cod e = 2238) 0.84 RATIO Delfino F AustinCOMPREHENSIVE METABOLIC [id number] 00:00:00* Test Item Value Reference Range Interpretation Comme nts GLUCOSE (test code = 2217) 80 MG/DL BUN (test code = 2208) 18 MG/DL CREATININE (test code = 2214) 1.06 MG/DL eGFR AMER. (test cod e = 01820) 67 ML/MIN/1.73 eGFR NON- AMER. (test code = 78576) 58 ML/MIN/1.73 CALC BUN/CREAT (test code = [...] (test code = 2219) 54 U/L [facility] [id number] 00:00:00* Test Item Value Reference Range Interpretation [...] ABS NUCLEATED RBCS (test cod e = 06890) 0.00 K/UL COMMENTS (test code = 1016) (NOTE) Delfino OrtaLIPID [id number] 00:00:00* Test Item Value Reference Range Interpretation Comme nts CHOLESTEROL (test code = 2210) 174 MG/DL TRIGLYCERIDES (test code = 2232) 63 MG/DL HDL CHOLESTEROL (test code = 2220) 87 MG/DL CALC LDL CHOL (test code = 2237) 73 MG/DL RISK RATIO LDL/HDL (test cod e = 2238) 0.84 RATIO Delfino OrtaCOMPREHENSIVE METABOLIC [id number] 00:00:00* Test Item Value Reference Range Interpretation Comme nts GLUCOSE (test code = 2217) 80 MG/DL BUN (test code = 2208) 18 MG/DL CREATININE (test code = 2214) 1.06 MG/DL eGFR AMER. (test cod e = 10428) 67 ML/MIN/1.73 eGFR NON- AMER. (test code = 31961) 58 ML/MIN/1.73 CALC BUN/CREAT (test code = [...] 2219) 54 U/L Delfino Schumacher [facility] W/AUTO [id number] 00:00:00* Test Item Value Reference Range Interpretation [...] ABS NUCLEATED RBCS (test cod e = 29058) 0.00 K/UL COMMENTS (test code = 1016) (NOTE) Delfino Endy AustinLIPID [id number] 00:00:00* Test Item Value Reference Range Interpretation Comme nts CHOLESTEROL (test code = 2210) 174 MG/DL TRIGLYCERIDES (test code = 2232) 63 MG/DL HDL CHOLESTEROL (test code = 2220) 87 MG/DL CALC LDL CHOL (test code = 2237) 73 MG/DL RISK RATIO LDL/HDL (test cod e = 2238) 0.84 RATIO Delfino OrtaCOMPREHENSIVE METABOLIC [id number] 00:00:00* Test Item Value Reference Range Interpretation Comme nts GLUCOSE (test code = 2217) 80 MG/DL BUN (test code = 2208) 18 MG/DL CREATININE (test code = 2214) 1.06 MG/DL eGFR AMER. (test cod e = 56334) 67 ML/MIN/1.73 eGFR NON- AMER. (test code = 87252) 58 ML/MIN/1.73 CALC BUN/CREAT (test code = [...] code = 2219) 54 U/L Delfino F [facility] W/AUTO [id number] 00:00:00* Test Item Value Reference Range Interpretation [...] ABS NUCLEATED RBCS (test cod e = 27696) 0.00 K/UL COMMENTS (test code = 1016) (NOTE) Delfino Schumacher AustinLIPID [id number] 00:00:00* Test Item Value Reference Range Interpretation Comme nts CHOLESTEROL (test code = 2210) 174 MG/DL TRIGLYCERIDES (test code = 2232) 63 MG/DL HDL CHOLESTEROL (test code = 2220) 87 MG/DL CALC LDL CHOL (test code = 2237) 73 MG/DL RISK RATIO LDL/HDL (test cod e = 2238) 0.84 RATIO Delfino OrtaCOMPREHENSIVE METABOLIC [id number] 00:00:00* Test Item Value Reference Range Interpretation Comme nts GLUCOSE (test code = 2217) 80 MG/DL BUN (test code = 2208) 18 MG/DL CREATININE (test code = 2214) 1.06 MG/DL eGFR AMER. (test cod e = 51480) 67 ML/MIN/1.73 eGFR NON- AMER. (test code = 80754) 58 ML/MIN/1.73 CALC BUN/CREAT (test code = [...] = 2219) 54 U/L Delfino OrtaCBC W/AUTO [id number] 00:00:00* Test Item Value Reference Range Interpretation [...] ABS NUCLEATED RBCS (test cod e = 39841) 0.00 K/UL COMMENTS (test code = 1016) (NOTE) Delfino OrtaLIPID [id number] 00:00:00* Test Item Value Reference Range Interpretation Comme nts CHOLESTEROL (test code = 2210) 174 MG/DL TRIGLYCERIDES (test code = 2232) 63 MG/DL HDL CHOLESTEROL (test code = 2220) 87 MG/DL CALC LDL CHOL (test code = 2237) 73 MG/DL RISK RATIO LDL/HDL (test cod e = 2238) 0.84 RATIO Delfino OrtaCOMPREHENSIVE METABOLIC [id number] 00:00:00* Test Item Value Reference Range Interpretation Comme nts GLUCOSE (test code = 2217) 80 MG/DL BUN (test code = 2208) 18 MG/DL CREATININE (test code = 2214) 1.06 MG/DL eGFR AMER. (test cod e = 98836) 67 ML/MIN/1.73 eGFR NON- AMER. (test code = 44518) 58 ML/MIN/1.73 CALC BUN/CREAT (test code = [...] (test code = 2219) 52 U/L [facility] [id number] 00:00:00* Test Item Value Reference Range Interpretation [...] ABS NUCLEATED RBCS (test cod e = 96323) 0.00 K/UL COMMENTS (test code = 1016) (NOTE) Delfino Schumacher AustinLIPID [id number] 00:00:00* Test Item Value Reference Range Interpretation Comme nts CHOLESTEROL (test code = 2210) 174 MG/DL TRIGLYCERIDES (test code = 2232) 63 MG/DL HDL CHOLESTEROL (test code = 2220) 87 MG/DL CALC LDL CHOL (test code = 2237) 73 MG/DL RISK RATIO LDL/HDL (test cod e = 2238) 0.84 RATIO Delfino OrtaCOMPREHENSIVE METABOLIC [id number] 00:00:00* Test Item Value Reference Range Interpretation Comme nts GLUCOSE (test code = 2217) 80 MG/DL BUN (test code = 2208) 18 MG/DL CREATININE (test code = 2214) 1.06 MG/DL eGFR AMER. (test cod e = 61577) 67 ML/MIN/1.73 eGFR NON- AMER. (test code = 32091) 58 ML/MIN/1.73 CALC BUN/CREAT (test code = [...] = 2219) 54 U/L Delfino OrtaCBC W/AUTO [id number] 00:00:00* Test Item Value Reference Range Interpretation [...] ABS NUCLEATED RBCS (test cod e = 57623) 0.00 K/UL COMMENTS (test code = 1016) (NOTE) Delfino OrtaLIPID [id number] 00:00:00* Test Item Value Reference Range Interpretation Comme nts CHOLESTEROL (test code = 2210) 174 MG/DL TRIGLYCERIDES (test code = 2232) 63 MG/DL HDL CHOLESTEROL (test code = 2220) 87 MG/DL CALC LDL CHOL (test code = 2237) 73 MG/DL RISK RATIO LDL/HDL (test cod e = 2238) 0.84 RATIO Delfino OrtaCOMPREHENSIVE METABOLIC [id number] 00:00:00* Test Item Value Reference Range Interpretation Comme nts GLUCOSE (test code = 2217) 80 MG/DL BUN (test code = 2208) 18 MG/DL CREATININE (test code = 2214) 1.06 MG/DL eGFR AMER. (test cod e = 12723) 67 ML/MIN/1.73 eGFR NON- AMER. (test code = 81056) 58 ML/MIN/1.73 CALC BUN/CREAT (test code = [...] = 2219) 54 U/L Delfino OrtaCBC W/AUTO [id number] 00:00:00* Test Item Value Reference Range Interpretation [...] ABS NUCLEATED RBCS (test cod e = 09254) 0.00 K/UL COMMENTS (test code = 1016) (NOTE) Delfino Schumacher BaileyLIPID [id number] 00:00:00* Test Item Value Reference Range Interpretation Comme nts CHOLESTEROL (test code = 2210) 174 MG/DL TRIGLYCERIDES (test code = 2232) 63 MG/DL HDL CHOLESTEROL (test code = 2220) 87 MG/DL CALC LDL CHOL (test code = 2237) 73 MG/DL RISK RATIO LDL/HDL (test cod e = 2238) 0.84 RATIO Delfino OrtaCOMPREHENSIVE METABOLIC [id number] 00:00:00* Test Item Value Reference Range Interpretation Comme nts GLUCOSE (test code = 2217) 80 MG/DL BUN (test code = 2208) 18 MG/DL CREATININE (test code = 2214) 1.06 MG/DL eGFR AMER. (test cod e = 29805) 67 ML/MIN/1.73 eGFR NON- AMER. (test code = 38492) 58 ML/MIN/1.73 CALC BUN/CREAT (test code = [...] = 2219) 54 U/L Delfino OrtaCBC W/AUTO [id number] 00:00:00* Test Item Value Reference Range Interpretation [...] ABS NUCLEATED RBCS (test cod e = 79040) 0.00 K/UL COMMENTS (test code = 1016) (NOTE) Delfino OrtaLIPID [id number] 00:00:00* Test Item Value Reference Range Interpretation Comme nts CHOLESTEROL (test code = 2210) 174 MG/DL TRIGLYCERIDES (test code = 2232) 63 MG/DL HDL CHOLESTEROL (test code = 2220) 87 MG/DL CALC LDL CHOL (test code = 2237) 73 MG/DL RISK RATIO LDL/HDL (test cod e = 2238) 0.84 RATIO Delfino OrtaCOMPREHENSIVE METABOLIC [id number] 00:00:00* Test Item Value Reference Range Interpretation Comme nts GLUCOSE (test code = 2217) 80 MG/DL BUN (test code = 2208) 18 MG/DL CREATININE (test code = 2214) 1.06 MG/DL eGFR AMER. (test cod e = 46291) 67 ML/MIN/1.73 eGFR NON- AMER. (test code = 54119) 58 ML/MIN/1.73 CALC BUN/CREAT (test code = [...] 2219) 54 U/L Delfino Schumacher YouCBC W/AUTO [id number] 00:00:00* Test Item Value Reference Range Interpretation [...] ABS NUCLEATED RBCS (test cod e = 04726) 0.00 K/UL COMMENTS (test code = 1016) (NOTE) Delfino Endy AustinLIPID [id number] 00:00:00* Test Item Value Reference Range Interpretation Comme nts CHOLESTEROL (test code = 2210) 174 MG/DL TRIGLYCERIDES (test code = 2232) 63 MG/DL HDL CHOLESTEROL (test code = 2220) 87 MG/DL CALC LDL CHOL (test code = 2237) 73 MG/DL RISK RATIO LDL/HDL (test cod e = 2238) 0.84 RATIO Delfino OrtaCOMPREHENSIVE METABOLIC [id number] 00:00:00* Test Item Value Reference Range Interpretation Comme nts GLUCOSE (test code = 2217) 80 MG/DL BUN (test code = 2208) 18 MG/DL CREATININE (test code = 2214) 1.06 MG/DL eGFR AMER. (test cod e = 96394) 67 ML/MIN/1.73 eGFR NON- AMER. (test code = 42542) 58 ML/MIN/1.73 CALC BUN/CREAT (test code = [...] = 2219) 54 U/L Delfino OrtaCBC W/AUTO [id number] 00:00:00* Test Item Value Reference Range Interpretation [...] ABS NUCLEATED RBCS (test cod e = 88363) 0.00 K/UL COMMENTS (test code = 1016) (NOTE) Delfino Schumacher AustinLIPID [id number] 00:00:00* Test Item Value Reference Range Interpretation Comme nts CHOLESTEROL (test code = 2210) 174 MG/DL TRIGLYCERIDES (test code = 2232) 63 MG/DL HDL CHOLESTEROL (test code = 2220) 87 MG/DL CALC LDL CHOL (test code = 2237) 73 MG/DL RISK RATIO LDL/HDL (test cod e = 2238) 0.84 RATIO Delfino OrtaCOMPREHENSIVE METABOLIC [id number] 00:00:00* Test Item Value Reference Range Interpretation Comme nts GLUCOSE (test code = 2217) 80 MG/DL BUN (test code = 2208) 18 MG/DL CREATININE (test code = 2214) 1.06 MG/DL eGFR AMER. (test cod e = 69554) 67 ML/MIN/1.73 eGFR NON- AMER. (test code = 29626) 58 ML/MIN/1.73 CALC BUN/CREAT (test code = [...] = 2219) 54 U/L Delfino OrtaCBC W/AUTO [id number] 00:00:00* Test Item Value Reference Range Interpretation [...] ABS NUCLEATED RBCS (test cod e = 96765) 0.00 K/UL COMMENTS (test code = 1016) (NOTE) Delfino Endy AustinLIPID [id number] 00:00:00* Test Item Value Reference Range Interpretation Comme nts CHOLESTEROL (test code = 2210) 174 MG/DL TRIGLYCERIDES (test code = 2232) 63 MG/DL HDL CHOLESTEROL (test code = 2220) 87 MG/DL CALC LDL CHOL (test code = 2237) 73 MG/DL RISK RATIO LDL/HDL (test cod e = 2238) 0.84 RATIO Delfino OrtaCOMPREHENSIVE METABOLIC [id number] 00:00:00* Test Item Value Reference Range Interpretation Comme nts GLUCOSE (test code = 2217) 80 MG/DL BUN (test code = 2208) 18 MG/DL CREATININE (test code = 2214) 1.06 MG/DL eGFR AMER. (test cod e = 45435) 67 ML/MIN/1.73 eGFR NON- AMER. (test code = 64539) 58 ML/MIN/1.73 CALC BUN/CREAT (test code = [...] code = 2219) 54 U/L Delfino F [facility] [id number] 00:00:00* Test Item Value Reference Range Interpretation [...] ABS NUCLEATED RBCS (test cod e = 74008) 0.00 K/UL COMMENTS (test code = 1016) (NOTE) Delfino OrtaLIPID [id number] 00:00:00* Test Item Value Reference Range Interpretation Comme nts CHOLESTEROL (test code = 2210) 174 MG/DL TRIGLYCERIDES (test code = 2232) 63 MG/DL HDL CHOLESTEROL (test code = 2220) 87 MG/DL CALC LDL CHOL (test code = 2237) 73 MG/DL RISK RATIO LDL/HDL (test cod e = 2238) 0.84 RATIO Delfino OrtaCOMPREHENSIVE METABOLIC [id number] 00:00:00* Test Item Value Reference Range Interpretation Comme nts GLUCOSE (test code = 2217) 80 MG/DL BUN (test code = 2208) 18 MG/DL CREATININE (test code = 2214) 1.06 MG/DL eGFR AMER. (test cod e = 89734) 67 ML/MIN/1.73 eGFR NON- AMER. (test code = 77224) 58 ML/MIN/1.73 CALC BUN/CREAT (test code = [...] = 2219) 54 U/L Delfino OrtaCBC W/AUTO [id number] 00:00:00* Test Item Value Reference Range Interpretation [...] ABS NUCLEATED RBCS (test cod e = 93303) 0.00 K/UL COMMENTS (test code = 1016) (NOTE) [facility] [id number] 00:00:00* Test Item Value Reference Range Interpretation [...] ABS NUCLEATED RBCS (test cod e = 21899) 0.00 K/UL COMMENTS (test code = 1016) (NOTE) Delfino OrtaLIPID [id number] 00:00:00* Test Item Value Reference Range Interpretation Comme nts CHOLESTEROL (test code = 2210) 174 MG/DL TRIGLYCERIDES (test code = 2232) 63 MG/DL HDL CHOLESTEROL (test code = 2220) 87 MG/DL CALC LDL CHOL (test code = 2237) 73 MG/DL RISK RATIO LDL/HDL (test cod e = 2238) 0.84 RATIO Delfino OrtaCOMPREHENSIVE METABOLIC [id number] 00:00:00* Test Item Value Reference Range Interpretation Comme nts GLUCOSE (test code = 2217) 80 MG/DL BUN (test code = 2208) 18 MG/DL CREATININE (test code = 2214) 1.06 MG/DL eGFR AMER. (test cod e = 21010) 67 ML/MIN/1.73 eGFR NON- AMER. (test code = 93934) 58 ML/MIN/1.73 CALC BUN/CREAT (test code = [...] = 2219) 54 U/L Delfino OrtaCBC W/AUTO [id number] 00:00:00* Test Item Value Reference Range Interpretation [...] ABS NUCLEATED RBCS (test cod e = 31913) 0.00 K/UL COMMENTS (test code = 1016) (NOTE) Delfino OrtaLIPID [id number] 00:00:00* Test Item Value Reference Range Interpretation Comme nts CHOLESTEROL (test code = 2210) 174 MG/DL TRIGLYCERIDES (test code = 2232) 63 MG/DL HDL CHOLESTEROL (test code = 2220) 87 MG/DL CALC LDL CHOL (test code = 2237) 73 MG/DL RISK RATIO LDL/HDL (test cod e = 2238) 0.84 RATIO Delfino OrtaCOMPREHENSIVE METABOLIC [id number] 00:00:00* Test Item Value Reference Range Interpretation Comme nts GLUCOSE (test code = 2217) 80 MG/DL BUN (test code = 2208) 18 MG/DL CREATININE (test code = 2214) 1.06 MG/DL eGFR AMER. (test cod e = 30862) 67 ML/MIN/1.73 eGFR NON- AMER. (test code = 55460) 58 ML/MIN/1.73 CALC BUN/CREAT (test code = [...] = 2219) 54 U/L Delfino OrtaCBC W/AUTO [id number] 00:00:00* Test Item Value Reference Range Interpretation [...] ABS NUCLEATED RBCS (test cod e = 35462) 0.00 K/UL COMMENTS (test code = 1016) (NOTE) Delfino OrtaLIPID [id number] 00:00:00* Test Item Value Reference Range Interpretation Comme nts CHOLESTEROL (test code = 2210) 174 MG/DL TRIGLYCERIDES (test code = 2232) 63 MG/DL HDL CHOLESTEROL (test code = 2220) 87 MG/DL CALC LDL CHOL (test code = 2237) 73 MG/DL RISK RATIO LDL/HDL (test cod e = 2238) 0.84 RATIO Delfino Schumacher GawrfmMEPV-[id number]-6 (COVID-19) by RT-PCR (HIGH RISK)2020-01-21 00:00:00* Test Item Value Reference Range Interpretation Comme nts SARS-CoV-2 INTERPRETATION (t est code = 37253) NEGATIVE SOURCE (test code = 25509) NOT SPECIFIED Delfino Schumacher NrncypGFVU-VeR-8 (COVID-19) by RT-PCR (HIGH RISK)2020-01-21 00:00:00* Test Item Value Reference Range Interpretation Comme nts SARS-CoV-2 INTERPRETATION (t est code = 28303) NEGATIVE SOURCE (test code = 70028) NOT SPECIFIED Delfino Schumacher RwrdbpXWPY-YdV-8 (COVID-19) by RT-PCR (HIGH RISK)2020-01-21 00:00:00* Test Item Value Reference Range Interpretation Comme nts SARS-CoV-2 INTERPRETATION (t est code = 97749) NEGATIVE SOURCE (test code = 77897) NOT SPECIFIED Delfino Schumacher BbproxJAUB-KpH-5 (COVID-19) by RT-PCR (HIGH RISK)2020-01-21 00:00:00* Test Item Value Reference Range Interpretation Comme nts SARS-CoV-2 INTERPRETATION (t est code = 99722) NEGATIVE SOURCE (test code = 34790) NOT SPECIFIED Delfino Schumacher HhqbzgESDE-AmM-9 (COVID-19) by RT-PCR (HIGH RISK)2020-01-21 00:00:00* Test Item Value Reference Range Interpretation Comme nts SARS-CoV-2 INTERPRETATION (t est code = 85233) NEGATIVE SOURCE (test code = 28886) NOT SPECIFIED SARS-CoV-2 (COVID-19) by RT-PCR (HIGH RISK)2020-01-21 00:00:00* Test Item Value Reference Range Interpretation Comme nts SARS-CoV-2 INTERPRETATION (t est code = 41786) NEGATIVE SOURCE (test code = 19463) NOT SPECIFIED Delfino Schumacher VzwixmTLFT-SvL-8 (COVID-19) by RT-PCR (HIGH RISK)2020-01-21 00:00:00* Test Item Value Reference Range Interpretation Comme nts SARS-CoV-2 INTERPRETATION (t est code = 55664) NEGATIVE SOURCE (test code = 50805) NOT SPECIFIED SARS-CoV-2 (COVID-19) by RT-PCR (HIGH RISK)2020-01-21 00:00:00* Test Item Value Reference Range Interpretation Comme nts SARS-CoV-2 INTERPRETATION (t est code = 68697) NEGATIVE SOURCE (test code = 31095) NOT SPECIFIED Delfino Schumacher CzhfamPHCS-JbM-6 (COVID-19) by RT-PCR (HIGH RISK)2020-01-21 00:00:00* Test Item Value Reference Range Interpretation Comme nts SARS-CoV-2 INTERPRETATION (t est code = 70508) NEGATIVE SOURCE (test code = 06733) NOT SPECIFIED SARS-CoV-2 (COVID-19) by RT-PCR (HIGH RISK)2020-01-21 00:00:00* Test Item Value Reference Range Interpretation Comme nts SARS-CoV-2 INTERPRETATION (t est code = 34236) NEGATIVE SOURCE (test code = 95954) NOT SPECIFIED SARS-CoV-2 (COVID-19) by RT-PCR (HIGH RISK)2020-01-21 00:00:00* Test Item Value Reference Range Interpretation Comme nts SARS-CoV-2 INTERPRETATION (t est code = 74197) NEGATIVE SOURCE (test code = 72764) NOT SPECIFIED Delfino Schumacher AhcoipOUDT-MnW-1 (COVID-19) by RT-PCR (HIGH RISK)2020-01-21 00:00:00* Test Item Value Reference Range Interpretation Comme nts SARS-CoV-2 INTERPRETATION (t est code = 59129) NEGATIVE SOURCE (test code = 64516) NOT SPECIFIED Delfino Schumacher VnkaqtQVAP-ByC-5 (COVID-19) by RT-PCR (HIGH RISK)2020-01-21 00:00:00* Test Item Value Reference Range Interpretation Comme nts SARS-CoV-2 INTERPRETATION (t est code = 66322) NEGATIVE SOURCE (test code = 38160) NOT SPECIFIED Delfino Schumacher WeftgkKREL-SdX-5 (COVID-19) by RT-PCR (HIGH RISK)2020-01-21 00:00:00* Test Item Value Reference Range Interpretation Comme nts SARS-CoV-2 INTERPRETATION (t est code = 15789) NEGATIVE SOURCE (test code = 53673) NOT SPECIFIED Delfino Schumacher TtrpceFBYQ-IiI-7 (COVID-19) by RT-PCR (HIGH RISK)2020-01-21 00:00:00* Test Item Value Reference Range Interpretation Comme nts SARS-CoV-2 INTERPRETATION (t est code = 74603) NEGATIVE SOURCE (test code = 21766) NOT SPECIFIED Delfino Schumacher BqvqieLGYX-QlP-8 (COVID-19) by RT-PCR (HIGH RISK)2020-01-21 00:00:00* Test Item Value Reference Range Interpretation Comme nts SARS-CoV-2 INTERPRETATION (t est code = 57547) NEGATIVE SOURCE (test code = 11132) NOT SPECIFIED Delfino Schumacher OhgofvRJZG-YcJ-7 (COVID-19) by RT-PCR (HIGH RISK)2020-01-21 00:00:00* Test Item Value Reference Range Interpretation Comme nts SARS-CoV-2 INTERPRETATION (t est code = 08832) NEGATIVE SOURCE (test code = 67977) NOT SPECIFIED Delfino F YmgzkiBEAK-EfU-7 (COVID-19) by RT-PCR (HIGH RISK)2020-01-21 00:00:00* Test Item Value Reference Range Interpretation Comme nts SARS-CoV-2 INTERPRETATION (t est code = 17338) NEGATIVE SOURCE (test code = 28493) NOT SPECIFIED Delfino Schumacher UeookzYXPE-ReH-8 (COVID-19) by RT-PCR (HIGH RISK)2020-01-21 00:00:00* Test Item Value Reference Range Interpretation Comme nts SARS-CoV-2 INTERPRETATION (t est code = 77380) NEGATIVE SOURCE (test code = 58918) NOT SPECIFIED Delfino F AuypwwBVCC-OjK-7 (COVID-19) by RT-PCR (HIGH RISK)2020-01-21 00:00:00* Test Item Value Reference Range Interpretation Comme nts SARS-CoV-2 INTERPRETATION (t est code = 36617) NEGATIVE SOURCE (test code = 21194) NOT SPECIFIED Delfino F SnakmjSPBS-PqZ-2 (COVID-19) by RT-PCR (HIGH RISK)2020-01-21 00:00:00* Test Item Value Reference Range Interpretation Comme nts SARS-CoV-2 INTERPRETATION (t est code = 66715) NEGATIVE SOURCE (test code = 42100) NOT SPECIFIED Delfino F VhwqhiLHRD-IuE-5 (COVID-19) by RT-PCR (HIGH RISK)2020-01-21 00:00:00* Test Item Value Reference Range Interpretation Comme nts SARS-CoV-2 INTERPRETATION (t est code = 55567) NEGATIVE SOURCE (test code = 93681) NOT SPECIFIED Delfino F KidiyzYOLY-FaP-9 (COVID-19) by RT-PCR (HIGH RISK)2020-01-21 00:00:00* Test Item Value Reference Range Interpretation Comme nts SARS-CoV-2 INTERPRETATION (t est code = 61076) NEGATIVE SOURCE (test code = 88010) NOT SPECIFIED Delfino F OfzvwmWVJX-WmP-5 (COVID-19) by RT-PCR (HIGH RISK)2020-01-21 00:00:00* Test Item Value Reference Range Interpretation Comme nts SARS-CoV-2 INTERPRETATION (t est code = 73994) NEGATIVE SOURCE (test code = 01169) NOT SPECIFIED Delfino F CgfnmxRCBJ-FqA-5 (COVID-19) by RT-PCR (HIGH RISK)2020-01-21 00:00:00* Test Item Value Reference Range Interpretation Comme nts SARS-CoV-2 INTERPRETATION (t est code = 47699) NEGATIVE SOURCE (test code = 58884) NOT SPECIFIED Delfino F HvgtrpANOH-YhG-3 (COVID-19) by RT-PCR (HIGH RISK)2020-01-21 00:00:00* Test Item Value Reference Range Interpretation Comme nts SARS-CoV-2 INTERPRETATION (t est code = 58016) NEGATIVE SOURCE (test code = 48777) NOT SPECIFIED Delfino OrtaSARS-CoV-2 (COVID-19) by RT-PCR (HIGH RISK)2020-01-21 00:00:00* Test Item Value Reference Range Interpretation Comme nts SARS-CoV-2 INTERPRETATION (t est code = 28957) NEGATIVE SOURCE (test code = 71117) NOT SPECIFIED Delfino OrtaCOMPREHENSIVE METABOLIC [id number] 00:00:00* Test Item Value Reference Range Interpretation Comme nts GLUCOSE (test code = 2217) 86 MG/DL BUN (test code = 2208) 16 MG/DL CREATININE (test code = 2214) 0.90 MG/DL eGFR AMER. (test cod e = 91743) 83 ML/MIN/1.73 eGFR NON- AMER. (test code = 09325) 71 ML/MIN/1.73 CALC BUN/CREAT (test code = [...] = 2219) 29 U/L Delfino OrtaCBC W/AUTO [id number] 00:00:00* Test Item Value Reference Range Interpretation [...] = 1015) 186 K/UL Delfino OrtaCOMPREHENSIVE METABOLIC [id number] 00:00:00* Test Item Value Reference Range Interpretation Comme nts GLUCOSE (test code = 2217) 86 MG/DL BUN (test code = 2208) 16 MG/DL CREATININE (test code = 2214) 0.90 MG/DL eGFR AMER. (test cod e = 27462) 83 ML/MIN/1.73 eGFR NON- AMER. (test code = 88274) 71 ML/MIN/1.73 CALC BUN/CREAT (test code = [...] = 2219) 29 U/L Delfino OrtaCBC W/AUTO [id number] 00:00:00* Test Item Value Reference Range Interpretation [...] = 1015) 186 K/UL Delfino OrtaCOMPREHENSIVE METABOLIC [id number] 00:00:00* Test Item Value Reference Range Interpretation Comme nts GLUCOSE (test code = 2217) 86 MG/DL BUN (test code = 2208) 16 MG/DL CREATININE (test code = 2214) 0.90 MG/DL eGFR AMER. (test cod e = 24019) 83 ML/MIN/1.73 eGFR NON- AMER. (test code = 61215) 71 ML/MIN/1.73 CALC BUN/CREAT (test code = [...] = 2219) 29 U/L Delfino OrtaCBC W/AUTO [id number] 00:00:00* Test Item Value Reference Range Interpretation [...] = 1015) 186 K/UL Delfino OrtaCOMPREHENSIVE METABOLIC [id number] 00:00:00* Test Item Value Reference Range Interpretation Comme nts GLUCOSE (test code = 2217) 86 MG/DL BUN (test code = 2208) 16 MG/DL CREATININE (test code = 2214) 0.90 MG/DL eGFR AMER. (test cod e = 75070) 83 ML/MIN/1.73 eGFR NON- AMER. (test code = 53761) 71 ML/MIN/1.73 CALC BUN/CREAT (test code = [...] 2219) 29 U/L Delfino Schumacher AustinCOMPREHENSIVE METABOLIC [id number] 00:00:00* Test Item Value Reference Range Interpretation Comme nts GLUCOSE (test code = 2217) 86 MG/DL BUN (test code = 2208) 16 MG/DL CREATININE (test code = 2214) 0.90 MG/DL eGFR AMER. (test cod e = 12629) 83 ML/MIN/1.73 eGFR NON- AMER. (test code = 07617) 71 ML/MIN/1.73 CALC BUN/CREAT (test code = [...] code = 2219) 29 U/L CBC W/AUTO [id number] 00:00:00* Test Item Value Reference Range Interpretation [...] (test code = 1015) 186 K/UL Delfino OrtaCBC W/AUTO [id number] 00:00:00* Test Item Value Reference Range Interpretation [...] code = 1015) 186 K/UL COMPREHENSIVE METABOLIC [id number] 00:00:00* Test Item Value Reference Range Interpretation Comme nts GLUCOSE (test code = 2217) 86 MG/DL BUN (test code = 2208) 16 MG/DL CREATININE (test code = 2214) 0.90 MG/DL eGFR AMER. (test cod e = 15257) 83 ML/MIN/1.73 eGFR NON- AMER. (test code = 70870) 71 ML/MIN/1.73 CALC BUN/CREAT (test code = [...] code = 2219) 29 U/L COMPREHENSIVE METABOLIC [id number] 00:00:00* Test Item Value Reference Range Interpretation Comme nts GLUCOSE (test code = 2217) 86 MG/DL BUN (test code = 2208) 16 MG/DL CREATININE (test code = 2214) 0.90 MG/DL eGFR AMER. (test cod e = 55081) 83 ML/MIN/1.73 eGFR NON- AMER. (test code = 08993) 71 ML/MIN/1.73 CALC BUN/CREAT (test code = [...] code = 2219) 29 U/L Delfino Schumacher [employer] W/AUTO [id number] 00:00:00* Test Item Value Reference Range Interpretation [...] COUNT (test code = 1015) 186 K/UL Delfinosurinder OrtaCBC W/AUTO [id number] 00:00:00* Test Item Value Reference Range Interpretation [...] code = 1015) 186 K/UL COMPREHENSIVE METABOLIC [id number] 00:00:00* Test Item Value Reference Range Interpretation Comme nts GLUCOSE (test code = 2217) 86 MG/DL BUN (test code = 2208) 16 MG/DL CREATININE (test code = 2214) 0.90 MG/DL eGFR AMER. (test cod e = 49127) 83 ML/MIN/1.73 eGFR NON- AMER. (test code = 92676) 71 ML/MIN/1.73 CALC BUN/CREAT (test code = [...] = 2219) 29 U/L Delfino OrtaCOMPREHENSIVE METABOLIC [id number] 00:00:00* Test Item Value Reference Range Interpretation Comme nts GLUCOSE (test code = 2217) 86 MG/DL BUN (test code = 2208) 16 MG/DL CREATININE (test code = 2214) 0.90 MG/DL eGFR AMER. (test cod e = 82263) 83 ML/MIN/1.73 eGFR NON- AMER. (test code = 44110) 71 ML/MIN/1.73 CALC BUN/CREAT (test code = [...] code = 2219) 29 U/L CBC W/AUTO [id number] 00:00:00* Test Item Value Reference Range Interpretation [...] code = 1015) 186 K/UL CBC W/AUTO [id number] 00:00:00* Test Item Value Reference Range Interpretation [...] 1015) 186 K/UL Delfino F AustinCOMPREHENSIVE METABOLIC [id number] 00:00:00* Test Item Value Reference Range Interpretation Comme nts GLUCOSE (test code = 2217) 86 MG/DL BUN (test code = 2208) 16 MG/DL CREATININE (test code = 2214) 0.90 MG/DL eGFR AMER. (test cod e = 96832) 83 ML/MIN/1.73 eGFR NON- AMER. (test code = 34448) 71 ML/MIN/1.73 CALC BUN/CREAT (test code = [...] code = 2219) 29 U/L COMPREHENSIVE METABOLIC [id number] 00:00:00* Test Item Value Reference Range Interpretation Comme nts GLUCOSE (test code = 2217) 86 MG/DL BUN (test code = 2208) 16 MG/DL CREATININE (test code = 2214) 0.90 MG/DL eGFR AMER. (test cod e = 38272) 83 ML/MIN/1.73 eGFR NON- AMER. (test code = 26070) 71 ML/MIN/1.73 CALC BUN/CREAT (test code = [...] code = 2219) 29 U/L Delfino Schumacher [facility] W/AUTO [id number] 00:00:00* Test Item Value Reference Range Interpretation [...] code = 1015) 186 K/UL CBC W/AUTO [id number] 00:00:00* Test Item Value Reference Range Interpretation [...] 1015) 186 K/UL Delfino Schumacher [facility] [id number] 00:00:00* Test Item Value Reference Range Interpretation Comme nts GLUCOSE (test code = 2217) 86 MG/DL BUN (test code = 2208) 16 MG/DL CREATININE (test code = 2214) 0.90 MG/DL eGFR AMER. (test cod e = 11375) 83 ML/MIN/1.73 eGFR NON- AMER. (test code = 42998) 71 ML/MIN/1.73 CALC BUN/CREAT (test code = [...] 2219) 29 U/L Delfino Schumacher [facility] W/AUTO [id number] 00:00:00* Test Item Value Reference Range Interpretation [...] 1015) 186 K/UL Delfino Schumacher [facility] [id number] 00:00:00* Test Item Value Reference Range Interpretation Comme nts GLUCOSE (test code = 2217) 86 MG/DL BUN (test code = 2208) 16 MG/DL CREATININE (test code = 2214) 0.90 MG/DL eGFR AMER. (test cod e = 31601) 83 ML/MIN/1.73 eGFR NON- AMER. (test code = 37330) 71 ML/MIN/1.73 CALC BUN/CREAT (test code = [...] = 2219) 29 U/L Delfino OrtaCBC W/AUTO [id number] 00:00:00* Test Item Value Reference Range Interpretation [...] = 1015) 186 K/UL Delfino OrtaCOMPREHENSIVE METABOLIC [id number] 00:00:00* Test Item Value Reference Range Interpretation Comme nts GLUCOSE (test code = 2217) 86 MG/DL BUN (test code = 2208) 16 MG/DL CREATININE (test code = 2214) 0.90 MG/DL eGFR AMER. (test cod e = 81282) 83 ML/MIN/1.73 eGFR NON- AMER. (test code = 53791) 71 ML/MIN/1.73 CALC BUN/CREAT (test code = [...] = 2219) 29 U/L Delfino OrtaCBC W/AUTO [id number] 00:00:00* Test Item Value Reference Range Interpretation [...] = 1015) 186 K/UL Delfino OrtaCOMPREHENSIVE METABOLIC [id number] 00:00:00* Test Item Value Reference Range Interpretation Comme nts GLUCOSE (test code = 2217) 86 MG/DL BUN (test code = 2208) 16 MG/DL CREATININE (test code = 2214) 0.90 MG/DL eGFR AMER. (test cod e = 91781) 83 ML/MIN/1.73 eGFR NON- AMER. (test code = 64242) 71 ML/MIN/1.73 CALC BUN/CREAT (test code = [...] = 2219) 29 U/L Delfino OrtaCBC W/AUTO [id number] 00:00:00* Test Item Value Reference Range Interpretation [...] = 1015) 186 K/UL Delfino OrtaCOMPREHENSIVE METABOLIC [id number] 00:00:00* Test Item Value Reference Range Interpretation Comme nts GLUCOSE (test code = 2217) 86 MG/DL BUN (test code = 2208) 16 MG/DL CREATININE (test code = 2214) 0.90 MG/DL eGFR AMER. (test cod e = 82083) 83 ML/MIN/1.73 eGFR NON- AMER. (test code = 13922) 71 ML/MIN/1.73 CALC BUN/CREAT (test code = [...] = 2219) 29 U/L Delfino OrtaCBC W/AUTO [id number] 00:00:00* Test Item Value Reference Range Interpretation [...] = 1015) 186 K/UL Delfino OrtaCOMPREHENSIVE METABOLIC [id number] 00:00:00* Test Item Value Reference Range Interpretation Comme nts GLUCOSE (test code = 2217) 86 MG/DL BUN (test code = 2208) 16 MG/DL CREATININE (test code = 2214) 0.90 MG/DL eGFR AMER. (test cod e = 53274) 83 ML/MIN/1.73 eGFR NON- AMER. (test code = 08563) 71 ML/MIN/1.73 CALC BUN/CREAT (test code = [...] = 2219) 29 U/L Delfino OrtaCBC W/AUTO [id number] 00:00:00* Test Item Value Reference Range Interpretation [...] = 1015) 186 K/UL Delfino OrtaCOMPREHENSIVE METABOLIC [id number] 00:00:00* Test Item Value Reference Range Interpretation Comme nts GLUCOSE (test code = 2217) 86 MG/DL BUN (test code = 2208) 16 MG/DL CREATININE (test code = 2214) 0.90 MG/DL eGFR AMER. (test cod e = 00339) 83 ML/MIN/1.73 eGFR NON- AMER. (test code = 15427) 71 ML/MIN/1.73 CALC BUN/CREAT (test code = [...] 2219) 29 U/L Delfino Endy YouCBC W/AUTO [id number] 00:00:00* Test Item Value Reference Range Interpretation [...] 1015) 186 K/UL Delfino F YouCOMPREHENSIVE METABOLIC [id number] 00:00:00* Test Item Value Reference Range Interpretation Comme nts GLUCOSE (test code = 2217) 86 MG/DL BUN (test code = 2208) 16 MG/DL CREATININE (test code = 2214) 0.90 MG/DL eGFR AMER. (test cod e = 44347) 83 ML/MIN/1.73 eGFR NON- AMER. (test code = 73002) 71 ML/MIN/1.73 CALC BUN/CREAT (test code = [...] = 2219) 29 U/L Delfino OrtaCBC W/AUTO [id number] 00:00:00* Test Item Value Reference Range Interpretation [...] = 1015) 186 K/UL Delfino OrtaCOMPREHENSIVE METABOLIC [id number] 00:00:00* Test Item Value Reference Range Interpretation Comme nts GLUCOSE (test code = 2217) 86 MG/DL BUN (test code = 2208) 16 MG/DL CREATININE (test code = 2214) 0.90 MG/DL eGFR AMER. (test cod e = 12334) 83 ML/MIN/1.73 eGFR NON- AMER. (test code = 53654) 71 ML/MIN/1.73 CALC BUN/CREAT (test code = [...] = 2219) 29 U/L Delfino OrtaCBC W/AUTO [id number] 00:00:00* Test Item Value Reference Range Interpretation [...] = 1015) 186 K/UL Delfino OrtaCOMPREHENSIVE METABOLIC [id number] 00:00:00* Test Item Value Reference Range Interpretation Comme nts GLUCOSE (test code = 2217) 86 MG/DL BUN (test code = 2208) 16 MG/DL CREATININE (test code = 2214) 0.90 MG/DL eGFR AMER. (test cod e = 95414) 83 ML/MIN/1.73 eGFR NON- AMER. (test code = 12340) 71 ML/MIN/1.73 CALC BUN/CREAT (test code = [...] 2219) 29 U/L Delfino Schumacher YouCBC W/AUTO [id number] 00:00:00* Test Item Value Reference Range Interpretation [...] 1015) 186 K/UL Delfino Schumacher YouCOMPREHENSIVE METABOLIC [id number] 00:00:00* Test Item Value Reference Range Interpretation Comme nts GLUCOSE (test code = 2217) 86 MG/DL BUN (test code = 2208) 16 MG/DL CREATININE (test code = 2214) 0.90 MG/DL eGFR AMER. (test cod e = 11628) 83 ML/MIN/1.73 eGFR NON- AMER. (test code = 91958) 71 ML/MIN/1.73 CALC BUN/CREAT (test code = [...] 2219) 29 U/L Delfino Endy YouCBC W/AUTO [id number] 00:00:00* Test Item Value Reference Range Interpretation [...] 1015) 186 K/UL Delfino F YouCOMPREHENSIVE METABOLIC [id number] 00:00:00* Test Item Value Reference Range Interpretation Comme nts GLUCOSE (test code = 2217) 86 MG/DL BUN (test code = 2208) 16 MG/DL CREATININE (test code = 2214) 0.90 MG/DL eGFR AMER. (test cod e = 72912) 83 ML/MIN/1.73 eGFR NON- AMER. (test code = 34142) 71 ML/MIN/1.73 CALC BUN/CREAT (test code = [...] (test code = 2219) 29 U/L Delfino OtraCOMPREHENSIVE METABOLIC [id number] 00:00:00* Test Item Value Reference Range Interpretation Comme nts GLUCOSE (test code = 2217) 86 MG/DL BUN (test code = 2208) 16 MG/DL CREATININE (test code = 2214) 0.90 MG/DL eGFR AMER. (test cod e = 10106) 83 ML/MIN/1.73 eGFR NON- AMER. (test code = 62944) 71 ML/MIN/1.73 CALC BUN/CREAT (test code = [...] = 2219) 29 U/L Delfino OrtaC W/AUTO [id number] 00:00:00* Test Item Value Reference Range Interpretation [...] = 1015) 186 K/UL Delfino OrtaCOMPREHENSIVE METABOLIC [id number] 00:00:00* Test Item Value Reference Range Interpretation Comme nts GLUCOSE (test code = 2217) 86 MG/DL BUN (test code = 2208) 16 MG/DL CREATININE (test code = 2214) 0.90 MG/DL eGFR AMER. (test cod e = 55678) 83 ML/MIN/1.73 eGFR NON- AMER. (test code = 22597) 71 ML/MIN/1.73 CALC BUN/CREAT (test code = [...] = 2219) 29 U/L Delfino OrtaCBC W/AUTO [id number] 00:00:00* Test Item Value Reference Range Interpretation [...] 1015) 186 K/UL Delfino Schumacher AustinCOMPREHENSIVE METABOLIC [id number] 00:00:00* Test Item Value Reference Range Interpretation Comme nts GLUCOSE (test code = 2217) 86 MG/DL BUN (test code = 2208) 16 MG/DL CREATININE (test code = 2214) 0.90 MG/DL eGFR AMER. (test cod e = 24282) 83 ML/MIN/1.73 eGFR NON- AMER. (test code = 85830) 71 ML/MIN/1.73 CALC BUN/CREAT (test code = [...] 2219) 29 U/L Delfino F AustinCBC W/AUTO [id number] 00:00:00* Test Item Value Reference Range Interpretation [...] 1015) 186 K/UL Delfino Schumacher AustinCBC W/AUTO [id number] 00:00:00* Test Item Value Reference Range Interpretation [...] = 1015) 186 K/UL Delfino OrtaCOMPREHENSIVE METABOLIC [id number] 00:00:00* Test Item Value Reference Range Interpretation Comme nts GLUCOSE (test code = 2217) 86 MG/DL BUN (test code = 2208) 16 MG/DL CREATININE (test code = 2214) 0.90 MG/DL eGFR AMER. (test cod e = 87216) 83 ML/MIN/1.73 eGFR NON- AMER. (test code = 49326) 71 ML/MIN/1.73 CALC BUN/CREAT (test code = [...] code = 2219) 29 U/L Delfino Schumacher [facility] [employer] W/AUTO [id number] 00:00:00* Test Item Value Reference Range Interpretation [...] code = 1015) 186 K/UL Delfino Schumacher [facility]C W/AUTO [id number] 00:00:00* Test Item Value Reference Range Interpretation [...] (test code = 1016) (NOTE) [facility] [id number] 00:00:00* Test Item Value Reference Range Interpretation [...] (test code = 1016) (NOTE) [facility] [id number] 00:00:00* Test Item Value Reference Range Interpretation [...] (test code = 1016) (NOTE) Delfino Schumacher YouCBC W/AUTO [id number] 00:00:00* Test Item Value Reference Range Interpretation [...] (test code = 1016) (NOTE) CBC W/AUTO [id number] 00:00:00* Test Item Value Reference Range Interpretation [...] code = 1016) (NOTE) Delfino OrtaCBC W/AUTO [id number] 00:00:00* Test Item Value Reference Range Interpretation [...] (test code = 1016) (NOTE) CBC W/AUTO [id number] 00:00:00* Test Item Value Reference Range Interpretation [...] code = 1016) (NOTE) Delfino OrtaC W/AUTO [id number] 00:00:00* Test Item Value Reference Range Interpretation [...] code = 1016) (NOTE) Delfino OrtaCBC W/AUTO [id number] 00:00:00* Test Item Value Reference Range Interpretation [...] (test code = 1016) (NOTE) CBC W/AUTO [id number] 00:00:00* Test Item Value Reference Range Interpretation [...] (test code = 1016) (NOTE) CBC W/AUTO [id number] 00:00:00* Test Item Value Reference Range Interpretation [...] code = 1016) (NOTE) Delfino OrtaCBC W/AUTO [id number] 00:00:00* Test Item Value Reference Range Interpretation [...] code = 1016) (NOTE) Delfino OrtaCBC W/AUTO [id number] 00:00:00* Test Item Value Reference Range Interpretation [...] code = 1016) (NOTE) Delfino OrtaCBC W/AUTO [id number] 00:00:00* Test Item Value Reference Range Interpretation [...] code = 1016) (NOTE) Delfino OrtaCBC W/AUTO [id number] 00:00:00* Test Item Value Reference Range Interpretation [...] (test code = 1016) (NOTE) [facility] [id number] 00:00:00* Test Item Value Reference Range Interpretation [...] (test code = 1016) (NOTE) Delfino Schumacher [facility] EnterprisesCBC W/AUTO [id number] 00:00:00* Test Item Value Reference Range Interpretation [...] (test code = 1016) (NOTE) Delfino Schumacher [facility] W/AUTO [id number] 00:00:00* Test Item Value Reference Range Interpretation [...] COMMENTS (test code = 1016) (NOTE) [facility] [id number] 00:00:00* Test Item Value Reference Range Interpretation [...] code = 1016) (NOTE) Delfino OrtaC W/AUTO [id number] 00:00:00* Test Item Value Reference Range Interpretation [...] code = 1016) (NOTE) Delfino OrtaC W/AUTO [id number] 00:00:00* Test Item Value Reference Range Interpretation [...] code = 1016) (NOTE) Delfino OrtaC W/AUTO [id number] 00:00:00* Test Item Value Reference Range Interpretation [...] (test code = 1016) (NOTE) Delfino Schumacher [facility] W/AUTO [id number] 00:00:00* Test Item Value Reference Range Interpretation [...] (test code = 1016) (NOTE) Delfino Schumacher [facility] W/AUTO [id number] 00:00:00* Test Item Value Reference Range Interpretation [...] (test code = 1016) (NOTE) Delfino Schumacher [facility] W/AUTO [id number] 00:00:00* Test Item Value Reference Range Interpretation [...] (test code = 1016) (NOTE) Delfino Schumacher [facility] W/AUTO [id number] 00:00:00* Test Item Value Reference Range Interpretation [...] COMMENTS (test code = 1016) (NOTE) Delfino CardenasC W/AUTO [id number] 00:00:00* Test Item Value Reference Range Interpretation [...] code = 1016) (NOTE) Delfino OrtaC W/AUTO [id number] 00:00:00* Test Item Value Reference Range Interpretation [...] 1016) (NOTE) Delfino Schumacher [facility]VAGIN[facility] PATHOG[facility] DNA [id number] 00:00:00* Test Item Value Reference Range Interpretation Comme nts DIANNA SPECIES (test code = ) NEGATIVE G. VAGINALIS (test code = ) POSITIVE T. VAGINALIS (test code = ) NEGATIVE Delfino Schumacher YouCOMPREHENSIVE METABOLIC [id number] 00:00:00* Test Item Value Reference Range Interpretation Comme nts GLUCOSE (test code = 2217) 92 MG/DL BUN (test code = 2208) 20 MG/DL CREATININE (test code = 2214) 1.31 MG/DL eGFR AMER. (test cod e = 80708) 53 ML/MIN/1.73 eGFR NON- AMER. (test code = 64334) 45 ML/MIN/1.73 CALC BUN/CREAT (test code = [...] 2219) 16 U/L Delfino Schumacher YouCBC W/AUTO [id number] 00:00:00* Test Item Value Reference Range Interpretation [...] code = 1016) (NOTE) Delfino OrtaCBC W/AUTO [id number] 00:00:00* Test Item Value Reference Range Interpretation [...] = 1016) (NOTE) Delfino OrtaVAGINAL PATHOGENS DNA [id number] 00:00:00* Test Item Value Reference Range Interpretation Comme nts DIANNA SPECIES (test code = ) NEGATIVE G. VAGINALIS (test code = ) POSITIVE T. VAGINALIS (test code = ) NEGATIVE Delfino OrtaCOMPREHENSIVE METABOLIC [id number] 00:00:00* Test Item Value Reference Range Interpretation Comme nts GLUCOSE (test code = 2217) 92 MG/DL BUN (test code = 2208) 20 MG/DL CREATININE (test code = 2214) 1.31 MG/DL eGFR AMER. (test cod e = 58024) 53 ML/MIN/1.73 eGFR NON- AMER. (test code = 72536) 45 ML/MIN/1.73 CALC BUN/CREAT (test code = [...] 2219) 16 U/L Delfino Schumacher YouCBC W/AUTO [id number] 00:00:00* Test Item Value Reference Range Interpretation [...] 1016) (NOTE) Delfino Endy YouVAGINAL PATHOGENS DNA [id number] 00:00:00* Test Item Value Reference Range Interpretation Comme nts DIANNA SPECIES (test code = ) NEGATIVE G. VAGINALIS (test code = ) POSITIVE T. VAGINALIS (test code = ) NEGATIVE Delfino Schumacher YouCOMPREHENSIVE METABOLIC [id number] 00:00:00* Test Item Value Reference Range Interpretation Comme nts GLUCOSE (test code = 7) 92 MG/DL BUN (test code = 8) 20 MG/DL CREATININE (test code = 2214) 1.31 MG/DL eGFR AMER. (test cod e = 29982) 53 ML/MIN/1.73 eGFR NON- AMER. (test code = 66010) 45 ML/MIN/1.73 CALC BUN/CREAT (test code = [...] = 2219) 16 U/L Delfino OrtaCBC W/AUTO [id number] 00:00:00* Test Item Value Reference Range Interpretation [...] = 1016) (NOTE) Delfino OrtaVAGINAL PATHOGENS DNA [id number] 00:00:00* Test Item Value Reference Range Interpretation Comme nts DIANNA SPECIES (test code = ) NEGATIVE G. VAGINALIS (test code = 14680) POSITIVE T. VAGINALIS (test code = 98282) NEGATIVE VAGINAL PATHOGENS DNA [id number] 00:00:00* Test Item Value Reference Range Interpretation Comme nts DIANNA SPECIES (test code = ) NEGATIVE G. VAGINALIS (test code = 29330) POSITIVE T. VAGINALIS (test code = 08459) NEGATIVE Delfino F AustinCOMPREHENSIVE METABOLIC [id number] 00:00:00* Test Item Value Reference Range Interpretation Comme nts GLUCOSE (test code = 7) 92 MG/DL BUN (test code = 2208) 20 MG/DL CREATININE (test code = 2214) 1.31 MG/DL eGFR AMER. (test cod e = 90011) 53 ML/MIN/1.73 eGFR NON- AMER. (test code = 35887) 45 ML/MIN/1.73 CALC BUN/CREAT (test code = [...] code = 2219) 16 U/L COMPREHENSIVE METABOLIC [id number] 00:00:00* Test Item Value Reference Range Interpretation Comme nts GLUCOSE (test code = 2217) 92 MG/DL BUN (test code = 2208) 20 MG/DL CREATININE (test code = 2214) 1.31 MG/DL eGFR AMER. (test cod e = 70963) 53 ML/MIN/1.73 eGFR NON- AMER. (test code = 35878) 45 ML/MIN/1.73 CALC BUN/CREAT (test code = [...] code = 2219) 16 U/L Delfino Endy YouC W/AUTO [id number] 00:00:00* Test Item Value Reference Range Interpretation [...] (test code = 1016) (NOTE) Delfino Endy [facility] EnterprisesCBC W/AUTO [id number] 00:00:00* Test Item Value Reference Range Interpretation [...] code = 1016) (NOTE) VAGINAL PATHOGENS DNA [id number] 00:00:00* Test Item Value Reference Range Interpretation Comme nts DIANNA SPECIES (test code = ) NEGATIVE G. VAGINALIS (test code = 24015) POSITIVE T. VAGINALIS (test code = 20936) NEGATIVE Delfino F AustinVAGINAL PATHOGENS DNA [id number] 00:00:00* Test Item Value Reference Range Interpretation Comme nts DIANNA SPECIES (test code = ) NEGATIVE G. VAGINALIS (test code = 57594) POSITIVE T. VAGINALIS (test code = 41118) NEGATIVE COMPREHENSIVE METABOLIC [id number] 00:00:00* Test Item Value Reference Range Interpretation Comme nts GLUCOSE (test code = 2217) 92 MG/DL BUN (test code = 8) 20 MG/DL CREATININE (test code = 4) 1.31 MG/DL eGFR AMER. (test cod e = 01728) 53 ML/MIN/1.73 eGFR NON- AMER. (test code = 20515) 45 ML/MIN/1.73 CALC BUN/CREAT (test code = [...] = 2219) 16 U/L Delfino OrtaCOMPREHENSIVE METABOLIC [id number] 00:00:00* Test Item Value Reference Range Interpretation Comme nts GLUCOSE (test code = 2217) 92 MG/DL BUN (test code = 2208) 20 MG/DL CREATININE (test code = 2214) 1.31 MG/DL eGFR AMER. (test cod e = 51599) 53 ML/MIN/1.73 eGFR NON- AMER. (test code = 77699) 45 ML/MIN/1.73 CALC BUN/CREAT (test code = [...] code = 2219) 16 U/L CBC W/AUTO [id number] 00:00:00* Test Item Value Reference Range Interpretation [...] (test code = 1016) (NOTE) Delfino Schumacher YouCBC W/AUTO [id number] 00:00:00* Test Item Value Reference Range Interpretation [...] code = 1016) (NOTE) VAGINAL PATHOGENS DNA [id number] 00:00:00* Test Item Value Reference Range Interpretation Comme nts DIANNA SPECIES (test code = ) NEGATIVE G. VAGINALIS (test code = 10803) POSITIVE T. VAGINALIS (test code = 22276) NEGATIVE VAGINAL PATHOGENS DNA [id number] 00:00:00* Test Item Value Reference Range Interpretation Comme nts DIANNA SPECIES (test code = 41685) NEGATIVE G. VAGINALIS (test code = 92507) POSITIVE T. VAGINALIS (test code = 94628) NEGATIVE Delfino OrtaCOMPREHENSIVE METABOLIC [id number] 00:00:00* Test Item Value Reference Range Interpretation Comme nts GLUCOSE (test code = 2217) 92 MG/DL BUN (test code = 2208) 20 MG/DL CREATININE (test code = 2214) 1.31 MG/DL eGFR AMER. (test cod e = 25246) 53 ML/MIN/1.73 eGFR NON- AMER. (test code = 47345) 45 ML/MIN/1.73 CALC BUN/CREAT (test code = [...] code = 2219) 16 U/L Delfino F BaileyCOMPREHENSIVE METABOLIC [id number] 00:00:00* Test Item Value Reference Range Interpretation Comme nts GLUCOSE (test code = 2217) 92 MG/DL BUN (test code = 2208) 20 MG/DL CREATININE (test code = 2214) 1.31 MG/DL eGFR AMER. (test cod e = 35343) 53 ML/MIN/1.73 eGFR NON- AMER. (test code = 88979) 45 ML/MIN/1.73 CALC BUN/CREAT (test code = [...] code = 2219) 16 U/L CBC W/AUTO [id number] 00:00:00* Test Item Value Reference Range Interpretation [...] (test code = 1016) (NOTE) CBC W/AUTO [id number] 00:00:00* Test Item Value Reference Range Interpretation [...] 1016) (NOTE) Delfino Schumacher AustinVAGINAL PATHOGENS DNA [id number] 00:00:00* Test Item Value Reference Range Interpretation Comme nts DIANNA SPECIES (test code = ) NEGATIVE G. VAGINALIS (test code = ) POSITIVE T. VAGINALIS (test code = ) NEGATIVE VAGINAL PATHOGENS DNA [id number] 00:00:00* Test Item Value Reference Range Interpretation Comme nts DIANNA SPECIES (test code = ) NEGATIVE G. VAGINALIS (test code = ) POSITIVE T. VAGINALIS (test code = ) NEGATIVE Delfino OrtaCOMPREHENSIVE METABOLIC [id number] 00:00:00* Test Item Value Reference Range Interpretation Comme nts GLUCOSE (test code = 2217) 92 MG/DL BUN (test code = 2208) 20 MG/DL CREATININE (test code = 2214) 1.31 MG/DL eGFR AMER. (test cod e = 48921) 53 ML/MIN/1.73 eGFR NON- AMER. (test code = 10387) 45 ML/MIN/1.73 CALC BUN/CREAT (test code = [...] code = 2219) 16 U/L CBC W/AUTO [id number] 00:00:00* Test Item Value Reference Range Interpretation [...] (test code = 1016) (NOTE) COMPREHENSIVE METABOLIC [id number] 00:00:00* Test Item Value Reference Range Interpretation Comme nts GLUCOSE (test code = 2217) 92 MG/DL BUN (test code = 2208) 20 MG/DL CREATININE (test code = 2214) 1.31 MG/DL eGFR AMER. (test cod e = 34430) 53 ML/MIN/1.73 eGFR NON- AMER. (test code = 83896) 45 ML/MIN/1.73 CALC BUN/CREAT (test code = [...] code = 2219) 16 U/L Delfino F YouCBC W/AUTO [id number] 00:00:00* Test Item Value Reference Range Interpretation [...] = 1016) (NOTE) Delfino OrtaVAGINAL PATHOGENS DNA [id number] 00:00:00* Test Item Value Reference Range Interpretation Comme nts DIANNA SPECIES (test code = ) NEGATIVE G. VAGINALIS (test code = ) POSITIVE T. VAGINALIS (test code = ) NEGATIVE Delfino OrtaCOMPREHENSIVE METABOLIC [id number] 00:00:00* Test Item Value Reference Range Interpretation Comme nts GLUCOSE (test code = 2217) 92 MG/DL BUN (test code = 2208) 20 MG/DL CREATININE (test code = 2214) 1.31 MG/DL eGFR AMER. (test cod e = 86264) 53 ML/MIN/1.73 eGFR NON- AMER. (test code = 89857) 45 ML/MIN/1.73 CALC BUN/CREAT (test code = [...] = 2219) 16 U/L Delfino OrtaCBC W/AUTO [id number] 00:00:00* Test Item Value Reference Range Interpretation [...] 1016) (NOTE) Delfino Schumacher AustinVAGINAL PATHOGENS DNA [id number] 00:00:00* Test Item Value Reference Range Interpretation Comme nts DIANNA SPECIES (test code = ) NEGATIVE G. VAGINALIS (test code = ) POSITIVE T. VAGINALIS (test code = ) NEGATIVE Delfino F YouCOMPREHENSIVE METABOLIC [id number] 00:00:00* Test Item Value Reference Range Interpretation Comme nts GLUCOSE (test code = 2217) 92 MG/DL BUN (test code = 2208) 20 MG/DL CREATININE (test code = 2214) 1.31 MG/DL eGFR AMER. (test cod e = 32001) 53 ML/MIN/1.73 eGFR NON- AMER. (test code = 62634) 45 ML/MIN/1.73 CALC BUN/CREAT (test code = [...] = 2219) 16 U/L Delfino OrtaCBC W/AUTO [id number] 00:00:00* Test Item Value Reference Range Interpretation [...] = 1016) (NOTE) Delfino OrtaVAGINAL PATHOGENS DNA [id number] 00:00:00* Test Item Value Reference Range Interpretation Comme nts DIANNA SPECIES (test code = 15464) NEGATIVE G. VAGINALIS (test code = 07567) POSITIVE T. VAGINALIS (test code = 91743) NEGATIVE Delfino OrtaCOMPREHENSIVE METABOLIC [id number] 00:00:00* Test Item Value Reference Range Interpretation Comme nts GLUCOSE (test code = 2217) 92 MG/DL BUN (test code = 2208) 20 MG/DL CREATININE (test code = 2214) 1.31 MG/DL eGFR AMER. (test cod e = 09205) 53 ML/MIN/1.73 eGFR NON- AMER. (test code = 47852) 45 ML/MIN/1.73 CALC BUN/CREAT (test code = [...] 2219) 16 U/L Delfino Schumacher YouCBC W/AUTO [id number] 00:00:00* Test Item Value Reference Range Interpretation [...] 1016) (NOTE) Delfino F YouVAGINAL PATHOGENS DNA [id number] 00:00:00* Test Item Value Reference Range Interpretation Comme nts DIANNA SPECIES (test code = ) NEGATIVE G. VAGINALIS (test code = ) POSITIVE T. VAGINALIS (test code = ) NEGATIVE Delfino Schumacher YouCOMPREHENSIVE METABOLIC [id number] 00:00:00* Test Item Value Reference Range Interpretation Comme nts GLUCOSE (test code = 2217) 92 MG/DL BUN (test code = 2208) 20 MG/DL CREATININE (test code = 2214) 1.31 MG/DL eGFR AMER. (test cod e = 72775) 53 ML/MIN/1.73 eGFR NON- AMER. (test code = 29856) 45 ML/MIN/1.73 CALC BUN/CREAT (test code = [...] = 2219) 16 U/L Delfino OrtaCBC W/AUTO [id number] 00:00:00* Test Item Value Reference Range Interpretation [...] = 1016) (NOTE) Delfino OrtaVAGINAL PATHOGENS DNA [id number] 00:00:00* Test Item Value Reference Range Interpretation Comme nts DIANNA SPECIES (test code = ) NEGATIVE G. VAGINALIS (test code = ) POSITIVE T. VAGINALIS (test code = ) NEGATIVE Delfino OrtaCOMPREHENSIVE METABOLIC [id number] 00:00:00* Test Item Value Reference Range Interpretation Comme nts GLUCOSE (test code = 2217) 92 MG/DL BUN (test code = 2208) 20 MG/DL CREATININE (test code = 2214) 1.31 MG/DL eGFR AMER. (test cod e = 28282) 53 ML/MIN/1.73 eGFR NON- AMER. (test code = 08405) 45 ML/MIN/1.73 CALC BUN/CREAT (test code = [...] = 2219) 16 U/L Delfino OrtaCBC W/AUTO [id number] 00:00:00* Test Item Value Reference Range Interpretation [...] = 1016) (NOTE) Delfino OrtaVAGINAL PATHOGENS DNA [id number] 00:00:00* Test Item Value Reference Range Interpretation Comme nts DIANNA SPECIES (test code = ) NEGATIVE G. VAGINALIS (test code = ) POSITIVE T. VAGINALIS (test code = ) NEGATIVE Delfino OrtaCOMPREHENSIVE METABOLIC [id number] 00:00:00* Test Item Value Reference Range Interpretation Comme nts GLUCOSE (test code = 2217) 92 MG/DL BUN (test code = 2208) 20 MG/DL CREATININE (test code = 2214) 1.31 MG/DL eGFR AMER. (test cod e = 02209) 53 ML/MIN/1.73 eGFR NON- AMER. (test code = 95671) 45 ML/MIN/1.73 CALC BUN/CREAT (test code = [...] = 2219) 16 U/L Delfino OrtaCBC W/AUTO [id number] 00:00:00* Test Item Value Reference Range Interpretation [...] 1016) (NOTE) Delfino Schumacher [facility]VAGINAL PATHOGENS DNA [id number] 00:00:00* Test Item Value Reference Range Interpretation Comme nts DIANNA SPECIES (test code = ) NEGATIVE G. VAGINALIS (test code = ) POSITIVE T. VAGINALIS (test code = ) NEGATIVE Delfino OrtaCOMPREHENSIVE METABOLIC [id number] 00:00:00* Test Item Value Reference Range Interpretation Comme nts GLUCOSE (test code = 2217) 92 MG/DL BUN (test code = 8) 20 MG/DL CREATININE (test code = 2214) 1.31 MG/DL eGFR AMER. (test cod e = 38815) 53 ML/MIN/1.73 eGFR NON- AMER. (test code = 35072) 45 ML/MIN/1.73 CALC BUN/CREAT (test code = [...] = 2219) 16 U/L Delfino OrtaCBC W/AUTO [id number] 00:00:00* Test Item Value Reference Range Interpretation [...] = 1016) (NOTE) Delfino OrtaVAGINAL PATHOGENS DNA [id number] 00:00:00* Test Item Value Reference Range Interpretation Comme nts DIANNA SPECIES (test code = ) NEGATIVE G. VAGINALIS (test code = 78904) POSITIVE T. VAGINALIS (test code = 95540) NEGATIVE Delfino OrtaCOMPREHENSIVE METABOLIC [id number] 00:00:00* Test Item Value Reference Range Interpretation Comme nts GLUCOSE (test code = 2217) 92 MG/DL BUN (test code = 2208) 20 MG/DL CREATININE (test code = 2214) 1.31 MG/DL eGFR AMER. (test cod e = 52438) 53 ML/MIN/1.73 eGFR NON- AMER. (test code = 21720) 45 ML/MIN/1.73 CALC BUN/CREAT (test code = [...] = 2219) 16 U/L Delfino OrtaCBC W/AUTO [id number] 00:00:00* Test Item Value Reference Range Interpretation [...] = 1016) (NOTE) Delfino OrtaVAGINAL PATHOGENS DNA [id number] 00:00:00* Test Item Value Reference Range Interpretation Comme nts DIANNA SPECIES (test code = ) NEGATIVE G. VAGINALIS (test code = ) POSITIVE T. VAGINALIS (test code = ) NEGATIVE Delfino OrtaCOMPREHENSIVE METABOLIC [id number] 00:00:00* Test Item Value Reference Range Interpretation Comme nts GLUCOSE (test code = 2217) 92 MG/DL BUN (test code = 2208) 20 MG/DL CREATININE (test code = 2214) 1.31 MG/DL eGFR AMER. (test cod e = 30459) 53 ML/MIN/1.73 eGFR NON- AMER. (test code = 36944) 45 ML/MIN/1.73 CALC BUN/CREAT (test code = [...] 2219) 16 U/L Delfino Endy YouCBC W/AUTO [id number] 00:00:00* Test Item Value Reference Range Interpretation [...] 1016) (NOTE) Delfino F YouVAGINAL PATHOGENS DNA [id number] 00:00:00* Test Item Value Reference Range Interpretation Comme nts DIANNA SPECIES (test code = ) NEGATIVE G. VAGINALIS (test code = ) POSITIVE T. VAGINALIS (test code = ) NEGATIVE Delfino Schumacher YouCOMPREHENSIVE METABOLIC [id number] 00:00:00* Test Item Value Reference Range Interpretation Comme nts GLUCOSE (test code = 7) 92 MG/DL BUN (test code = 2208) 20 MG/DL CREATININE (test code = 2214) 1.31 MG/DL eGFR AMER. (test cod e = 19323) 53 ML/MIN/1.73 eGFR NON- AMER. (test code = 74159) 45 ML/MIN/1.73 CALC BUN/CREAT (test code = [...] = 2219) 16 U/L Delfino OrtaCBC W/AUTO [id number] 00:00:00* Test Item Value Reference Range Interpretation [...] = 1016) (NOTE) Delfino OrtaVAGINAL PATHOGENS DNA [id number] 00:00:00* Test Item Value Reference Range Interpretation Comme nts DIANNA SPECIES (test code = ) NEGATIVE G. VAGINALIS (test code = ) POSITIVE T. VAGINALIS (test code = ) NEGATIVE Delfino OrtaCOMPREHENSIVE METABOLIC [id number] 00:00:00* Test Item Value Reference Range Interpretation Comme nts GLUCOSE (test code = 2217) 92 MG/DL BUN (test code = 2208) 20 MG/DL CREATININE (test code = 2214) 1.31 MG/DL eGFR AMER. (test cod e = 66764) 53 ML/MIN/1.73 eGFR NON- AMER. (test code = 41849) 45 ML/MIN/1.73 CALC BUN/CREAT (test code = [...] 2219) 16 U/L Delfino Schumacher YouCBC W/AUTO [id number] 00:00:00* Test Item Value Reference Range Interpretation [...] = 1016) (NOTE) Delfino OrtaVAGINAL PATHOGENS DNA [id number] 00:00:00* Test Item Value Reference Range Interpretation Comme nts IDANNA SPECIES (test code = ) NEGATIVE G. VAGINALIS (test code = ) POSITIVE T. VAGINALIS (test code = ) NEGATIVE Delfino OrtaCOMPREHENSIVE METABOLIC [id number] 00:00:00* Test Item Value Reference Range Interpretation Comme nts GLUCOSE (test code = 2217) 92 MG/DL BUN (test code = 2208) 20 MG/DL CREATININE (test code = 2214) 1.31 MG/DL eGFR AMER. (test cod e = 09229) 53 ML/MIN/1.73 eGFR NON- AMER. (test code = 95088) 45 ML/MIN/1.73 CALC BUN/CREAT (test code = [...] = 2219) 16 U/L Delfino OrtaCBC W/AUTO [id number] 00:00:00* Test Item Value Reference Range Interpretation [...] 1016) (NOTE) Delfino Schumacher AustinVAGINAL PATHOGENS DNA [id number] 00:00:00* Test Item Value Reference Range Interpretation Comme nts DIANNA SPECIES (test code = ) NEGATIVE G. VAGINALIS (test code = 67228) POSITIVE T. VAGINALIS (test code = 60678) NEGATIVE Delfino Schumacher AustinVAGINAL PATHOGENS DNA [id number] 00:00:00* Test Item Value Reference Range Interpretation Comme nts DIANNA SPECIES (test code = ) NEGATIVE G. VAGINALIS (test code = 37418) POSITIVE T. VAGINALIS (test code = 14126) NEGATIVE Delfino OrtaCOMPREHENSIVE METABOLIC [id number] 00:00:00* Test Item Value Reference Range Interpretation Comme nts GLUCOSE (test code = 2217) 92 MG/DL BUN (test code = 2208) 20 MG/DL CREATININE (test code = 2214) 1.31 MG/DL eGFR AMER. (test cod e = 27420) 53 ML/MIN/1.73 eGFR NON- AMER. (test code = 52630) 45 ML/MIN/1.73 CALC BUN/CREAT (test code = [...] = 2219) 16 U/L Delfino OrtaCBC W/AUTO [id number] 00:00:00* Test Item Value Reference Range Interpretation [...] = 1016) (NOTE) Delfino OrtaVAGINAL PATHOGENS DNA [id number] 00:00:00* Test Item Value Reference Range Interpretation Comme nts DIANNA SPECIES (test code = ) NEGATIVE G. VAGINALIS (test code = ) POSITIVE T. VAGINALIS (test code = ) NEGATIVE Delfino OrtaCOMPREHENSIVE METABOLIC [id number] 00:00:00* Test Item Value Reference Range Interpretation Comme nts GLUCOSE (test code = 2217) 92 MG/DL BUN (test code = 2208) 20 MG/DL CREATININE (test code = 2214) 1.31 MG/DL eGFR AMER. (test cod e = 20571) 53 ML/MIN/1.73 eGFR NON- AMER. (test code = 98843) 45 ML/MIN/1.73 CALC BUN/CREAT (test code = [...] 2219) 16 U/L Delfino Endy YouCBC W/AUTO [id number] 00:00:00* Test Item Value Reference Range Interpretation [...] 1016) (NOTE) Delfino Endy YouVAGINAL PATHOGENS DNA [id number] 00:00:00* Test Item Value Reference Range Interpretation Comme nts DIANNA SPECIES (test code = ) NEGATIVE G. VAGINALIS (test code = ) POSITIVE T. VAGINALIS (test code = ) NEGATIVE Delfino F YouCOMPREHENSIVE METABOLIC [id number] 00:00:00* Test Item Value Reference Range Interpretation Comme nts GLUCOSE (test code = 2217) 92 MG/DL BUN (test code = 2208) 20 MG/DL CREATININE (test code = 2214) 1.31 MG/DL eGFR AMER. (test cod e = 27815) 53 ML/MIN/1.73 eGFR NON- AMER. (test code = 58007) 45 ML/MIN/1.73 CALC BUN/CREAT (test code = [...] code = 2219) 16 U/L Delfino Schumacher BaileyCOMPREHENSIVE METABOLIC [id number] 00:00:00* Test Item Value Reference Range Interpretation Comme nts GLUCOSE (test code = 2217) 92 MG/DL BUN (test code = 2208) 20 MG/DL CREATININE (test code = 2214) 1.31 MG/DL eGFR AMER. (test cod e = 73520) 53 ML/MIN/1.73 eGFR NON- AMER. (test code = 94734) 45 ML/MIN/1.73 CALC BUN/CREAT (test code = [...] = 2219) 16 U/L Delfino OrtaCOMPREHENSIVE METABOLIC [id number] 00:00:00* Test Item Value Reference Range Interpretation Comme nts GLUCOSE (test code = 2217) 95 MG/DL BUN (test code = 2208) 21 MG/DL CREATININE (test code = 2214) 0.87 MG/DL eGFR AMER. (test cod e = 27215) 87 ML/MIN/1.73 eGFR NON- AMER. (test code = 16453) 75 ML/MIN/1.73 CALC BUN/CREAT (test code = [...] code = 2219) 8 U/L Delfino OrtaURIC [id number] 00:00:00* Test Item Value Reference Range Interpretation Comme nts URIC ACID (test code = 2233) 8.5 MG/DL Delfino OrtaVITAMIN [id number] 00:00:00* Test Item Value Reference Range Interpretation Comme [facility] VITAMIN B-12 (test code = 2840) 335 PG/ML Delfino OrtaCOMPREHENSIVE METABOLIC [id number] 00:00:00* Test Item Value Reference Range Interpretation Comme nts GLUCOSE (test code = 2217) 95 MG/DL BUN (test code = 2208) 21 MG/DL CREATININE (test code = 2214) 0.87 MG/DL eGFR AMER. (test cod e = 07738) 87 ML/MIN/1.73 eGFR NON- AMER. (test code = 08259) 75 ML/MIN/1.73 CALC BUN/CREAT (test code = [...] = 2219) 8 U/L Delfino OrtaCBC W/AUTO [id number] 00:00:00* Test Item Value Reference Range Interpretation [...] code = 1015) 212 K/UL Delfino OrtaLIPID [id number] 00:00:00* Test Item Value Reference Range Interpretation Comme nts CHOLESTEROL (test code = 2210) 141 MG/DL TRIGLYCERIDES (test code = 2232) 71 MG/DL HDL CHOLESTEROL (test code = 2220) 69 MG/DL CALC LDL CHOL (test code = 2237) 58 MG/DL RISK RATIO LDL/HDL (test cod e = 2238) 0.84 RATIO Delfino OrtaCOMPREHENSIVE METABOLIC [id number] 00:00:00* Test Item Value Reference Range Interpretation Comme nts GLUCOSE (test code = 2217) 95 MG/DL BUN (test code = 2208) 21 MG/DL CREATININE (test code = 2214) 0.87 MG/DL eGFR AMER. (test cod e = 00997) 87 ML/MIN/1.73 eGFR NON- AMER. (test code = 32835) 75 ML/MIN/1.73 CALC BUN/CREAT (test code = [...] code = 2219) 8 U/L Delfino OrtaURIC [id number] 00:00:00* Test Item Value Reference Range Interpretation Comme nts URIC ACID (test code = 2233) 8.5 MG/DL Delfino OrtaVITAMIN [id number] 00:00:00* Test Item Value Reference Range Interpretation Comme nts VITAMIN B-12 (test code = 2840) 335 PG/ML Delfino OrtaCBC W/AUTO [id number] 00:00:00* Test Item Value Reference Range Interpretation [...] code = 1015) 212 K/UL Delfino OrtaLIPID [id number] 00:00:00* Test Item Value Reference Range Interpretation Comme nts CHOLESTEROL (test code = 2210) 141 MG/DL TRIGLYCERIDES (test code = 2232) 71 MG/DL HDL CHOLESTEROL (test code = 2220) 69 MG/DL CALC LDL CHOL (test code = 2237) 58 MG/DL RISK RATIO LDL/HDL (test cod e = 2238) 0.84 RATIO Delfino OrtaURIC [id number] 00:00:00* Test Item Value Reference Range Interpretation Comme nts URIC ACID (test code = 2233) 8.5 MG/DL Delfino OrtaCOMPREHENSIVE METABOLIC [id number] 00:00:00* Test Item Value Reference Range Interpretation Comme nts GLUCOSE (test code = 2217) 95 MG/DL BUN (test code = 2208) 21 MG/DL CREATININE (test code = 2214) 0.87 MG/DL eGFR AMER. (test cod e = 20872) 87 ML/MIN/1.73 eGFR NON- AMER. (test code = 98267) 75 ML/MIN/1.73 CALC BUN/CREAT (test code = [...] = 2219) 8 U/L Delfino Schumacher AustinURIC [id number] 00:00:00* Test Item Value Reference Range Interpretation Comme [facility] URIC ACID (test code = 2233) 8.5 MG/DL Delfino OrtaVITAMIN [id number] 00:00:00* Test Item Value Reference Range Interpretation Comme carlito VITAMIN B-12 (test code = 2840) 335 PG/ML Delfino OrtaCBC W/AUTO [id number] 00:00:00* Test Item Value Reference Range Interpretation [...] code = 1015) 212 K/UL Delfino OrtaVITAMIN [id number] 00:00:00* Test Item Value Reference Range Interpretation Comme nts VITAMIN B-12 (test code = 2840) 335 PG/ML Delfino OrtaLIPID [id number] 00:00:00* Test Item Value Reference Range Interpretation Comme nts CHOLESTEROL (test code = 2210) 141 MG/DL TRIGLYCERIDES (test code = 2232) 71 MG/DL HDL CHOLESTEROL (test code = 2220) 69 MG/DL CALC LDL CHOL (test code = 2237) 58 MG/DL RISK RATIO LDL/HDL (test cod e = 2238) 0.84 RATIO Delfino OrtaCOMPREHENSIVE METABOLIC [id number] 00:00:00* Test Item Value Reference Range Interpretation Comme nts GLUCOSE (test code = 2217) 95 MG/DL BUN (test code = 2208) 21 MG/DL CREATININE (test code = 2214) 0.87 MG/DL eGFR AMER. (test cod e = 86296) 87 ML/MIN/1.73 eGFR NON- AMER. (test code = 01718) 75 ML/MIN/1.73 CALC BUN/CREAT (test code = [...] code = 2219) 8 U/L Delfino OrtaURIC [id number] 00:00:00* Test Item Value Reference Range Interpretation Comme nts URIC ACID (test code = 2233) 8.5 MG/DL Delfino OrtaVITAMIN [id number] 00:00:00* Test Item Value Reference Range Interpretation Comme nts VITAMIN B-12 (test code = 2840) 335 PG/ML Delfino OrtaCBC W/AUTO [id number] 00:00:00* Test Item Value Reference Range Interpretation [...] code = 1015) 212 K/UL [facility]elf[facility] [id number] 00:00:00* Test Item Value Reference Range Interpretation [...] (test code = 1015) 212 K/UL LIPID [id number] 00:00:00* Test Item Value Reference Range Interpretation Comme nts CHOLESTEROL (test code = 2210) 141 MG/DL TRIGLYCERIDES (test code = 2232) 71 MG/DL HDL CHOLESTEROL (test code = 2220) 69 MG/DL CALC LDL CHOL (test code = 2237) 58 MG/DL RISK RATIO LDL/HDL (test cod e = 2238) 0.84 RATIO LIPID [id number] 00:00:00* Test Item Value Reference Range Interpretation Comme nts CHOLESTEROL (test code = 2210) 141 MG/DL TRIGLYCERIDES (test code = 2232) 71 MG/DL HDL CHOLESTEROL (test code = 2220) 69 MG/DL CALC LDL CHOL (test code = 2237) 58 MG/DL RISK RATIO LDL/HDL (test cod e = 2238) 0.84 RATIO Delfino OrtaCOMPREHENSIVE METABOLIC [id number] 00:00:00* Test Item Value Reference Range Interpretation Comme nts GLUCOSE (test code = 2217) 95 MG/DL BUN (test code = 2208) 21 MG/DL CREATININE (test code = 2214) 0.87 MG/DL eGFR AMER. (test cod e = 92830) 87 ML/MIN/1.73 eGFR NON- AMER. (test code = 43973) 75 ML/MIN/1.73 CALC BUN/CREAT (test code = [...] code = 2219) 8 U/L [facility] [id number] 00:00:00* Test Item Value Reference Range Interpretation Comme nts GLUCOSE (test code = 2217) 95 MG/DL BUN (test code = 2208) 21 MG/DL CREATININE (test code = 2214) 0.87 MG/DL eGFR AMER. (test cod e = 70228) 87 ML/MIN/1.73 eGFR NON- AMER. (test code = 81182) 75 ML/MIN/1.73 CALC BUN/CREAT (test code = [...] (test code = 2219) 8 U/L URIC [id number] 00:00:00* Test Item Value Reference Range Interpretation Comme [facility]ID (test code = 2233) 8.5 MG/DL Delfino OrtaVITAMIN [id number] 00:00:00* Test Item Value Reference Range Interpretation Comme [facility] VITAMIN B-12 (test code = 2840) 335 PG/ML Delfino Schumacher AustinURIC [id number] 00:00:00* Test Item Value Reference Range Interpretation Comme [facility] URIC ACID (test code = 2233) 8.5 MG/DL VITAMIN [id number] 00:00:00* Test Item Value Reference Range Interpretation Comme [facility] VITAMIN B-12 (test code = 2840) 335 PG/ML CBC W/AUTO [id number] 00:00:00* Test Item Value Reference Range Interpretation [...] (test code = 1015) 212 K/UL Delfino OrtaCBC W/AUTO [id number] 00:00:00* Test Item Value Reference Range Interpretation [...] (test code = 1015) 212 K/UL LIPID [id number] 00:00:00* Test Item Value Reference Range Interpretation Comme nts CHOLESTEROL (test code = 2210) 141 MG/DL TRIGLYCERIDES (test code = 2232) 71 MG/DL HDL CHOLESTEROL (test code = 2220) 69 MG/DL CALC LDL CHOL (test code = 2237) 58 MG/DL RISK RATIO LDL/HDL (test cod e = 2238) 0.84 RATIO Delfino OrtaLIPID [id number] 00:00:00* Test Item Value Reference Range Interpretation Comme nts CHOLESTEROL (test code = 2210) 141 MG/DL TRIGLYCERIDES (test code = 2232) 71 MG/DL HDL CHOLESTEROL (test code = 2220) 69 MG/DL CALC LDL CHOL (test code = 2237) 58 MG/DL RISK RATIO LDL/HDL (test cod e = 2238) 0.84 RATIO COMPREHENSIVE METABOLIC [id number] 00:00:00* Test Item Value Reference Range Interpretation Comme nts GLUCOSE (test code = 2217) 95 MG/DL BUN (test code = 2208) 21 MG/DL CREATININE (test code = 2214) 0.87 MG/DL eGFR AMER. (test cod e = 01639) 87 ML/MIN/1.73 eGFR NON- AMER. (test code = 17415) 75 ML/MIN/1.73 CALC BUN/CREAT (test code = [...] = 2219) 8 U/L Delfino Schumacher AustinURIC [id number] 00:00:00* Test Item Value Reference Range Interpretation Comme nts URIC ACID (test code = 2233) 8.5 MG/DL Delfino OrtaVITAMIN [id number] 00:00:00* Test Item Value Reference Range Interpretation Comme nts VITAMIN B-12 (test code = 2840) 335 PG/ML Delfino OrtaCOMPREHENSIVE METABOLIC [id number] 00:00:00* Test Item Value Reference Range Interpretation Comme nts GLUCOSE (test code = 2217) 95 MG/DL BUN (test code = 2208) 21 MG/DL CREATININE (test code = 2214) 0.87 MG/DL eGFR AMER. (test cod e = 73934) 87 ML/MIN/1.73 eGFR NON- AMER. (test code = 77407) 75 ML/MIN/1.73 CALC BUN/CREAT (test code = [...] (test code = 2219) 8 U/L URIC [id number] 00:00:00* Test Item Value Reference Range Interpretation Comme nts URIC ACID (test code = 2233) 8.5 MG/DL CBC W/AUTO [id number] 00:00:00* Test Item Value Reference Range Interpretation [...] code = 1015) 212 K/UL Delfino Schumacher YouVITAMIN [id number] 00:00:00* Test Item Value Reference Range Interpretation Comme nts VITAMIN B-12 (test code = 2840) 335 PG/ML CBC W/AUTO [id number] 00:00:00* Test Item Value Reference Range Interpretation [...] (test code = 1015) 212 K/UL LIPID [id number] 00:00:00* Test Item Value Reference Range Interpretation Comme nts CHOLESTEROL (test code = 2210) 141 MG/DL TRIGLYCERIDES (test code = 2232) 71 MG/DL HDL CHOLESTEROL (test code = 2220) 69 MG/DL CALC LDL CHOL (test code = 2237) 58 MG/DL RISK RATIO LDL/HDL (test cod e = 2238) 0.84 RATIO LIPID [id number] 00:00:00* Test Item Value Reference Range Interpretation Comme nts CHOLESTEROL (test code = 2210) 141 MG/DL TRIGLYCERIDES (test code = 2232) 71 MG/DL HDL CHOLESTEROL (test code = 2220) 69 MG/DL CALC LDL CHOL (test code = 2237) 58 MG/DL RISK RATIO LDL/HDL (test cod e = 2238) 0.84 RATIO Delfino F AustinCOMPREHENSIVE METABOLIC [id number] 00:00:00* Test Item Value Reference Range Interpretation Comme nts GLUCOSE (test code = 2217) 95 MG/DL BUN (test code = 2208) 21 MG/DL CREATININE (test code = 2214) 0.87 MG/DL eGFR AMER. (test cod e = 15083) 87 ML/MIN/1.73 eGFR NON- AMER. (test code = 51448) 75 ML/MIN/1.73 CALC BUN/CREAT (test code = [...] (test code = 2219) 8 U/L URIC [id number] 00:00:00* Test Item Value Reference Range Interpretation Comme nts URIC ACID (test code = 2233) 8.5 MG/DL VITAMIN [id number] 00:00:00* Test Item Value Reference Range Interpretation Comme nts VITAMIN B-12 (test code = 2840) 335 PG/ML COMPREHENSIVE METABOLIC [id number] 00:00:00* Test Item Value Reference Range Interpretation Comme nts GLUCOSE (test code = 2217) 95 MG/DL BUN (test code = 2208) 21 MG/DL CREATININE (test code = 2214) 0.87 MG/DL eGFR AMER. (test cod e = 14222) 87 ML/MIN/1.73 eGFR NON- AMER. (test code = 48402) 75 ML/MIN/1.73 CALC BUN/CREAT (test code = [...] = 2219) 8 U/L Delfino Schumacher AustinURIC [id number] 00:00:00* Test Item Value Reference Range Interpretation Comme nts URIC ACID (test code = 2233) 8.5 MG/DL Delfino Schumacher AustinVITAMIN [id number] 00:00:00* Test Item Value Reference Range Interpretation Comme nts VITAMIN B-12 (test code = 2840) 335 PG/ML Delfino OrtaCBC W/AUTO [id number] 00:00:00* Test Item Value Reference Range Interpretation [...] (test code = 1015) 212 K/UL LIPID [id number] 00:00:00* Test Item Value Reference Range Interpretation Comme nts CHOLESTEROL (test code = 2210) 141 MG/DL TRIGLYCERIDES (test code = 2232) 71 MG/DL HDL CHOLESTEROL (test code = 2220) 69 MG/DL CALC LDL CHOL (test code = 2237) 58 MG/DL RISK RATIO LDL/HDL (test cod e = 2238) 0.84 RATIO CBC W/AUTO [id number] 00:00:00* Test Item Value Reference Range Interpretation [...] code = 1015) 212 K/UL Delfino OrtaLIPID [id number] 00:00:00* Test Item Value Reference Range Interpretation Comme nts CHOLESTEROL (test code = 2210) 141 MG/DL TRIGLYCERIDES (test code = 2232) 71 MG/DL HDL CHOLESTEROL (test code = 2220) 69 MG/DL CALC LDL CHOL (test code = 2237) 58 MG/DL RISK RATIO LDL/HDL (test cod e = 2238) 0.84 RATIO Delfino OrtaCOMPREHENSIVE METABOLIC [id number] 00:00:00* Test Item Value Reference Range Interpretation Comme nts GLUCOSE (test code = 2217) 95 MG/DL BUN (test code = 2208) 21 MG/DL CREATININE (test code = 2214) 0.87 MG/DL eGFR AMER. (test cod e = 74167) 87 ML/MIN/1.73 eGFR NON- AMER. (test code = 90106) 75 ML/MIN/1.73 CALC BUN/CREAT (test code = [...] (test code = 2219) 8 U/L URIC [id number] 00:00:00* Test Item Value Reference Range Interpretation Comme nts URIC ACID (test code = 2233) 8.5 MG/DL VITAMIN [id number] 00:00:00* Test Item Value Reference Range Interpretation Comme nts VITAMIN B-12 (test code = 2840) 335 PG/ML COMPREHENSIVE METABOLIC [id number] 00:00:00* Test Item Value Reference Range Interpretation Comme nts GLUCOSE (test code = 2217) 95 MG/DL BUN (test code = 2208) 21 MG/DL CREATININE (test code = 2214) 0.87 MG/DL eGFR AMER. (test cod e = 17284) 87 ML/MIN/1.73 eGFR NON- AMER. (test code = 82998) 75 ML/MIN/1.73 CALC BUN/CREAT (test code = [...] code = 2219) 8 U/L Delfino OrtaURIC [id number] 00:00:00* Test Item Value Reference Range Interpretation Comme nts URIC ACID (test code = 2233) 8.5 MG/DL Delfino Schumacher YouVITAMIN [id number] 00:00:00* Test Item Value Reference Range Interpretation Comme nts VITAMIN B-12 (test code = 2840) 335 PG/ML Delfino Schumacher YouCBC W/AUTO [id number] 00:00:00* Test Item Value Reference Range Interpretation [...] = 1015) 212 K/UL Delfino Schumacher AustinLIPID [id number] 00:00:00* Test Item Value Reference Range Interpretation Comme nts CHOLESTEROL (test code = 2210) 141 MG/DL TRIGLYCERIDES (test code = 2232) 71 MG/DL HDL CHOLESTEROL (test code = 2220) 69 MG/DL CALC LDL CHOL (test code = 2237) 58 MG/DL RISK RATIO LDL/HDL (test cod e = 2238) 0.84 RATIO Delfino OrtaCOMPREHENSIVE METABOLIC [id number] 00:00:00* Test Item Value Reference Range Interpretation Comme nts GLUCOSE (test code = 2217) 95 MG/DL BUN (test code = 2208) 21 MG/DL CREATININE (test code = 2214) 0.87 MG/DL eGFR AMER. (test cod e = 07453) 87 ML/MIN/1.73 eGFR NON- AMER. (test code = 71342) 75 ML/MIN/1.73 CALC BUN/CREAT (test code = [...] code = 2219) 8 U/L Delfino OrtaURIC [id number] 00:00:00* Test Item Value Reference Range Interpretation Comme [facility] URIC ACID (test code = 2233) 8.5 MG/DL Delfino OrtaVITAMIN [id number] 00:00:00* Test Item Value Reference Range Interpretation Comme [facility] VITAMIN B-12 (test code = 2840) 335 PG/ML Delfino OrtaCBC W/AUTO [id number] 00:00:00* Test Item Value Reference Range Interpretation [...] code = 1015) 212 K/UL Delfino OrtaLIPID [id number] 00:00:00* Test Item Value Reference Range Interpretation Comme nts CHOLESTEROL (test code = 2210) 141 MG/DL TRIGLYCERIDES (test code = 2232) 71 MG/DL HDL CHOLESTEROL (test code = 2220) 69 MG/DL CALC LDL CHOL (test code = 2237) 58 MG/DL RISK RATIO LDL/HDL (test cod e = 2238) 0.84 RATIO Delfino OrtaCOMPREHENSIVE METABOLIC [id number] 00:00:00* Test Item Value Reference Range Interpretation Comme nts GLUCOSE (test code = 2217) 95 MG/DL BUN (test code = 2208) 21 MG/DL CREATININE (test code = 2214) 0.87 MG/DL eGFR AMER. (test cod e = 72218) 87 ML/MIN/1.73 eGFR NON- AMER. (test code = 99863) 75 ML/MIN/1.73 CALC BUN/CREAT (test code = [...] code = 2219) 8 U/L Delfino OrtaURIC [id number] 00:00:00* Test Item Value Reference Range Interpretation Comme [facility] URIC ACID (test code = 2233) 8.5 MG/DL Delfino OrtaVITAMIN [id number] 00:00:00* Test Item Value Reference Range Interpretation Comme [facility] VITAMIN B-12 (test code = 2840) 335 PG/ML Delfino OrtaCBC W/AUTO [id number] 00:00:00* Test Item Value Reference Range Interpretation [...] code = 1015) 212 K/UL Delfino OrtaLIPID [id number] 00:00:00* Test Item Value Reference Range Interpretation Comme nts CHOLESTEROL (test code = 2210) 141 MG/DL TRIGLYCERIDES (test code = 2232) 71 MG/DL HDL CHOLESTEROL (test code = 2220) 69 MG/DL CALC LDL CHOL (test code = 2237) 58 MG/DL RISK RATIO LDL/HDL (test cod e = 2238) 0.84 RATIO Delfino OrtaCOMPREHENSIVE METABOLIC [id number] 00:00:00* Test Item Value Reference Range Interpretation Comme nts GLUCOSE (test code = 2217) 95 MG/DL BUN (test code = 2208) 21 MG/DL CREATININE (test code = 2214) 0.87 MG/DL eGFR AMER. (test cod e = 10129) 87 ML/MIN/1.73 eGFR NON- AMER. (test code = 97069) 75 ML/MIN/1.73 CALC BUN/CREAT (test code = [...] code = 2219) 8 U/L Delfino OrtaURIC [id number] 00:00:00* Test Item Value Reference Range Interpretation Comme nts URIC ACID (test code = 2233) 8.5 MG/DL Delfino OrtaVITAMIN [id number] 00:00:00* Test Item Value Reference Range Interpretation Comme nts VITAMIN B-12 (test code = 2840) 335 PG/ML Delfino OrtaCBC W/AUTO [id number] 00:00:00* Test Item Value Reference Range Interpretation [...] code = 1015) 212 K/UL Delfino Schumacher BaileyLIPID [id number] 00:00:00* Test Item Value Reference Range Interpretation Comme nts CHOLESTEROL (test code = 2210) 141 MG/DL TRIGLYCERIDES (test code = 2232) 71 MG/DL HDL CHOLESTEROL (test code = 2220) 69 MG/DL CALC LDL CHOL (test code = 2237) 58 MG/DL RISK RATIO LDL/HDL (test cod e = 2238) 0.84 RATIO Delfino Schumacher YouCOMPREHENSIVE METABOLIC [id number] 00:00:00* Test Item Value Reference Range Interpretation Comme nts GLUCOSE (test code = 2217) 95 MG/DL BUN (test code = 2208) 21 MG/DL CREATININE (test code = 2214) 0.87 MG/DL eGFR AMER. (test cod e = 20280) 87 ML/MIN/1.73 eGFR NON- AMER. (test code = 86808) 75 ML/MIN/1.73 CALC BUN/CREAT (test code = [...] code = 2219) 8 U/L Delfino OrtaURIC [id number] 00:00:00* Test Item Value Reference Range Interpretation Comme nts URIC ACID (test code = 2233) 8.5 MG/DL Delfino OrtaVITAMIN [id number] 00:00:00* Test Item Value Reference Range Interpretation Comme nts VITAMIN B-12 (test code = 2840) 335 PG/ML Delfino OrtaCBC W/AUTO [id number] 00:00:00* Test Item Value Reference Range Interpretation [...] code = 1015) 212 K/UL Delfino OrtaLIPID [id number] 00:00:00* Test Item Value Reference Range Interpretation Comme nts CHOLESTEROL (test code = 2210) 141 MG/DL TRIGLYCERIDES (test code = 2232) 71 MG/DL HDL CHOLESTEROL (test code = 2220) 69 MG/DL CALC LDL CHOL (test code = 2237) 58 MG/DL RISK RATIO LDL/HDL (test cod e = 2238) 0.84 RATIO Delfino OrtaCOMPREHENSIVE METABOLIC [id number] 00:00:00* Test Item Value Reference Range Interpretation Comme nts GLUCOSE (test code = 2217) 95 MG/DL BUN (test code = 2208) 21 MG/DL CREATININE (test code = 2214) 0.87 MG/DL eGFR AMER. (test cod e = 32242) 87 ML/MIN/1.73 eGFR NON- AMER. (test code = 04197) 75 ML/MIN/1.73 CALC BUN/CREAT (test code = [...] code = 2219) 8 U/L Delfino OrtaURIC [id number] 00:00:00* Test Item Value Reference Range Interpretation Comme nts URIC ACID (test code = 2233) 8.5 MG/DL Delfino [facility]IT[facility] [id number] 00:00:00* Test Item Value Reference Range Interpretation Comme [facility] VITAMIN B-12 (test code = 2840) 335 PG/ML Delfino OrtaCBC W/AUTO [id number] 00:00:00* Test Item Value Reference Range Interpretation [...] code = 1015) 212 K/UL Delfino OrtaLIPID [id number] 00:00:00* Test Item Value Reference Range Interpretation Comme nts CHOLESTEROL (test code = 2210) 141 MG/DL TRIGLYCERIDES (test code = 2232) 71 MG/DL HDL CHOLESTEROL (test code = 2220) 69 MG/DL CALC LDL CHOL (test code = 2237) 58 MG/DL RISK RATIO LDL/HDL (test cod e = 2238) 0.84 RATIO Delfino OrtaCOMPREHENSIVE METABOLIC [id number] 00:00:00* Test Item Value Reference Range Interpretation Comme nts GLUCOSE (test code = 2217) 95 MG/DL BUN (test code = 2208) 21 MG/DL CREATININE (test code = 2214) 0.87 MG/DL eGFR AMER. (test cod e = 60292) 87 ML/MIN/1.73 eGFR NON- AMER. (test code = 25809) 75 ML/MIN/1.73 CALC BUN/CREAT (test code = [...] code = 2219) 8 U/L Delfino OrtaURIC [id number] 00:00:00* Test Item Value Reference Range Interpretation Comme nts URIC ACID (test code = 2233) 8.5 MG/DL Delfino OrtaVITAMIN [id number] 00:00:00* Test Item Value Reference Range Interpretation Comme nts VITAMIN B-12 (test code = 2840) 335 PG/ML Delfino OrtaCBC W/AUTO [id number] 00:00:00* Test Item Value Reference Range Interpretation [...] code = 1015) 212 K/UL Delfino OrtaLIPID [id number] 00:00:00* Test Item Value Reference Range Interpretation Comme nts CHOLESTEROL (test code = 2210) 141 MG/DL TRIGLYCERIDES (test code = 2232) 71 MG/DL HDL CHOLESTEROL (test code = 2220) 69 MG/DL CALC LDL CHOL (test code = 2237) 58 MG/DL RISK RATIO LDL/HDL (test cod e = 2238) 0.84 RATIO Delfino OrtaCOMPREHENSIVE METABOLIC [id number] 00:00:00* Test Item Value Reference Range Interpretation Comme nts GLUCOSE (test code = 2217) 95 MG/DL BUN (test code = 2208) 21 MG/DL CREATININE (test code = 2214) 0.87 MG/DL eGFR AMER. (test cod e = 81001) 87 ML/MIN/1.73 eGFR NON- AMER. (test code = 15462) 75 ML/MIN/1.73 CALC BUN/CREAT (test code = [...] code = 2219) 8 U/L Delfino OrtaURIC [id number] 00:00:00* Test Item Value Reference Range Interpretation Com[facility] URIC ACID (test code = 2233) 8.5 MG/DL Delfino OrtaVITAMIN [id number] 00:00:00* Test Item Value Reference Range Interpretation Com[facility] VITAMIN B-12 (test code = 2840) 335 PG/ML Delfino OrtaCBC W/AUTO [id number] 00:00:00* Test Item Value Reference Range Interpretation [...] code = 1015) 212 K/UL Delfino OrtaLIPID [id number] 00:00:00* Test Item Value Reference Range Interpretation Comme nts CHOLESTEROL (test code = 2210) 141 MG/DL TRIGLYCERIDES (test code = 2232) 71 MG/DL HDL CHOLESTEROL (test code = 2220) 69 MG/DL CALC LDL CHOL (test code = 2237) 58 MG/DL RISK RATIO LDL/HDL (test cod e = 2238) 0.84 RATIO Delfino OrtaCOMPREHENSIVE METABOLIC [id number] 00:00:00* Test Item Value Reference Range Interpretation Comme nts GLUCOSE (test code = 2217) 95 MG/DL BUN (test code = 2208) 21 MG/DL CREATININE (test code = 2214) 0.87 MG/DL eGFR AMER. (test cod e = 07936) 87 ML/MIN/1.73 eGFR NON- AMER. (test code = 81805) 75 ML/MIN/1.73 CALC BUN/CREAT (test code = [...] code = 2219) 8 U/L Delfino OrtaURIC [id number] 00:00:00* Test Item Value Reference Range Interpretation Comme [facility] URIC ACID (test code = 2233) 8.5 MG/DL Delfino OrtaVITAMIN [id number] 00:00:00* Test Item Value Reference Range Interpretation Comme [facility] VITAMIN B-12 (test code = 2840) 335 PG/ML Delfino OrtaCBC W/AUTO [id number] 00:00:00* Test Item Value Reference Range Interpretation [...] = 1015) 212 K/UL Delfino Schumacher AustinLIPID [id number] 00:00:00* Test Item Value Reference Range Interpretation Comme nts CHOLESTEROL (test code = 2210) 141 MG/DL TRIGLYCERIDES (test code = 2232) 71 MG/DL HDL CHOLESTEROL (test code = 2220) 69 MG/DL CALC LDL CHOL (test code = 2237) 58 MG/DL RISK RATIO LDL/HDL (test cod e = 2238) 0.84 RATIO Delfino OrtaCOMPREHENSIVE METABOLIC [id number] 00:00:00* Test Item Value Reference Range Interpretation Comme nts GLUCOSE (test code = 2217) 95 MG/DL BUN (test code = 2208) 21 MG/DL CREATININE (test code = 2214) 0.87 MG/DL eGFR AMER. (test cod e = 51228) 87 ML/MIN/1.73 eGFR NON- AMER. (test code = 07743) 75 ML/MIN/1.73 CALC BUN/CREAT (test code = [...] code = 2219) 8 U/L Delfino OrtaURIC [id number] 00:00:00* Test Item Value Reference Range Interpretation Comme nts URIC ACID (test code = 2233) 8.5 MG/DL Delfino OrtaVITAMIN [id number] 00:00:00* Test Item Value Reference Range Interpretation Comme nts VITAMIN B-12 (test code = 2840) 335 PG/ML Delfino OrtaCBC W/AUTO [id number] 00:00:00* Test Item Value Reference Range Interpretation [...] code = 1015) 212 K/UL Delfino OrtaLIPID [id number] 00:00:00* Test Item Value Reference Range Interpretation Comme nts CHOLESTEROL (test code = 2210) 141 MG/DL TRIGLYCERIDES (test code = 2232) 71 MG/DL HDL CHOLESTEROL (test code = 2220) 69 MG/DL CALC LDL CHOL (test code = 2237) 58 MG/DL RISK RATIO LDL/HDL (test cod e = 2238) 0.84 RATIO Delfino OrtaCOMPREHENSIVE METABOLIC [id number] 00:00:00* Test Item Value Reference Range Interpretation Comme nts GLUCOSE (test code = 2217) 95 MG/DL BUN (test code = 2208) 21 MG/DL CREATININE (test code = 2214) 0.87 MG/DL eGFR AMER. (test cod e = ) 87 ML/MIN/1.73 eGFR NON- AMER. (test code = 78195) 75 ML/MIN/1.73 CALC BUN/CREAT (test code = [...] code = 2219) 8 U/L Delfino OrtaURIC [id number] 00:00:00* Test Item Value Reference Range Interpretation Com[facility] URIC ACID (test code = 2233) 8.5 MG/DL Delfino OrtaVITAMIN [id number] 00:00:00* Test Item Value Reference Range Interpretation Comme [facility] VITAMIN B-12 (test code = 2840) 335 PG/ML Delfino OrtaCBC W/AUTO [id number] 00:00:00* Test Item Value Reference Range Interpretation [...] code = 1015) 212 K/UL Delfino OrtaLIPID [id number] 00:00:00* Test Item Value Reference Range Interpretation Comme nts CHOLESTEROL (test code = 2210) 141 MG/DL TRIGLYCERIDES (test code = 2232) 71 MG/DL HDL CHOLESTEROL (test code = 2220) 69 MG/DL CALC LDL CHOL (test code = 2237) 58 MG/DL RISK RATIO LDL/HDL (test cod e = 2238) 0.84 RATIO Delfino OrtaCOMPREHENSIVE METABOLIC [id number] 00:00:00* Test Item Value Reference Range Interpretation Comme nts GLUCOSE (test code = 2217) 95 MG/DL BUN (test code = 2208) 21 MG/DL CREATININE (test code = 2214) 0.87 MG/DL eGFR AMER. (test cod e = 68941) 87 ML/MIN/1.73 eGFR NON- AMER. (test code = 35198) 75 ML/MIN/1.73 CALC BUN/CREAT (test code = [...] code = 2219) 8 U/L Delfino OrtaURIC [id number] 00:00:00* Test Item Value Reference Range Interpretation Comme nts URIC ACID (test code = 2233) 8.5 MG/DL Delfino OrtaVITAMIN [id number] 00:00:00* Test Item Value Reference Range Interpretation Comme nts VITAMIN B-12 (test code = 2840) 335 PG/ML Delfino OrtaCBC W/AUTO [id number] 00:00:00* Test Item Value Reference Range Interpretation [...] code = 1015) 212 K/UL Delfino OrtaLIPID [id number] 00:00:00* Test Item Value Reference Range Interpretation Comme nts CHOLESTEROL (test code = 2210) 141 MG/DL TRIGLYCERIDES (test code = 2232) 71 MG/DL HDL CHOLESTEROL (test code = 2220) 69 MG/DL CALC LDL CHOL (test code = 2237) 58 MG/DL RISK RATIO LDL/HDL (test cod e = 2238) 0.84 RATIO Delfino OrtaCBC W/AUTO [id number] 00:00:00* Test Item Value Reference Range Interpretation [...] = 1015) 212 K/UL Delfino OrtaCOMPREHENSIVE METABOLIC [id number] 00:00:00* Test Item Value Reference Range Interpretation Comme nts GLUCOSE (test code = 2217) 95 MG/DL BUN (test code = 2208) 21 MG/DL CREATININE (test code = 2214) 0.87 MG/DL eGFR AMER. (test cod e = 85519) 87 ML/MIN/1.73 eGFR NON- AMER. (test code = 02762) 75 ML/MIN/1.73 CALC BUN/CREAT (test code = [...] code = 2219) 8 U/L Delfino OrtaURIC [id number] 00:00:00* Test Item Value Reference Range Interpretation Comme nts URIC ACID (test code = 2233) 8.5 MG/DL Delfino OrtaVITAMIN [id number] 00:00:00* Test Item Value Reference Range Interpretation Comme nts VITAMIN B-12 (test code = 2840) 335 PG/ML Delfino OrtaCBC W/AUTO [id number] 00:00:00* Test Item Value Reference Range Interpretation [...] code = 1015) 212 K/UL Delfino OrtaLIPID [id number] 00:00:00* Test Item Value Reference Range Interpretation Comme nts CHOLESTEROL (test code = 2210) 141 MG/DL TRIGLYCERIDES (test code = 2232) 71 MG/DL HDL CHOLESTEROL (test code = 2220) 69 MG/DL CALC LDL CHOL (test code = 2237) 58 MG/DL RISK RATIO LDL/HDL (test cod e = 2238) 0.84 RATIO Delfino OrtaCOMPREHENSIVE METABOLIC [id number] 00:00:00* Test Item Value Reference Range Interpretation Comme nts GLUCOSE (test code = 2217) 95 MG/DL BUN (test code = 2208) 21 MG/DL CREATININE (test code = 2214) 0.87 MG/DL eGFR AMER. (test cod e = 51653) 87 ML/MIN/1.73 eGFR NON- AMER. (test code = 87856) 75 ML/MIN/1.73 CALC BUN/CREAT (test code = [...] code = 2219) 8 U/L Delfino OrtaURIC [id number] 00:00:00* Test Item Value Reference Range Interpretation Comme nts URIC ACID (test code = 2233) 8.5 MG/DL Delfino OrtaVITAMIN [id number] 00:00:00* Test Item Value Reference Range Interpretation Comme [facility] VITAMIN B-12 (test code = 2840) 335 PG/ML Delfino OrtaCBC W/AUTO [id number] 00:00:00* Test Item Value Reference Range Interpretation [...] code = 1015) 212 K/UL Delfino OrtaLIPID [id number] 00:00:00* Test Item Value Reference Range Interpretation Comme nts CHOLESTEROL (test code = 2210) 141 MG/DL TRIGLYCERIDES (test code = 2232) 71 MG/DL HDL CHOLESTEROL (test code = 2220) 69 MG/DL CALC LDL CHOL (test code = 2237) 58 MG/DL RISK RATIO LDL/HDL (test cod e = 2238) 0.84 RATIO Delfino OrtaLIPID [id number] 00:00:00* Test Item Value Reference Range Interpretation Comme nts CHOLESTEROL (test code = 2210) 141 MG/DL TRIGLYCERIDES (test code = 2232) 71 MG/DL HDL CHOLESTEROL (test code = 2220) 69 MG/DL CALC LDL CHOL (test code = 2237) 58 MG/DL RISK RATIO LDL/HDL (test cod e = 2238) 0.84 RATIO Delfino OrtaCOMPREHENSIVE METABOLIC [id number] 00:00:00* Test Item Value Reference Range Interpretation Comme nts GLUCOSE (test code = 2217) 95 MG/DL BUN (test code = 2208) 21 MG/DL CREATININE (test code = 2214) 0.87 MG/DL eGFR AMER. (test cod e = 03811) 87 ML/MIN/1.73 eGFR NON- AMER. (test code = 15943) 75 ML/MIN/1.73 CALC BUN/CREAT (test code = [...] code = 2219) 8 U/L Delfino OrtaURIC [id number] 00:00:00* Test Item Value Reference Range Interpretation Comme nts URIC ACID (test code = 2233) 8.5 MG/DL Delfino OrtaVITAMIN [id number] 00:00:00* Test Item Value Reference Range Interpretation Comme [facility] VITAMIN B-12 (test code = 2840) 335 PG/ML Delfino OrtaCBC W/AUTO [id number] 00:00:00* Test Item Value Reference Range Interpretation [...] = 1015) 212 K/UL Delfino Schumacher AustinLIPID [id number] 00:00:00* Test Item Value Reference Range Interpretation Comme nts CHOLESTEROL (test code = 2210) 141 MG/DL TRIGLYCERIDES (test code = 2232) 71 MG/DL HDL CHOLESTEROL (test code = 2220) 69 MG/DL CALC LDL CHOL (test code = 2237) 58 MG/DL RISK RATIO LDL/HDL (test cod e = 2238) 0.84 RATIO Delfino OrtaCD4/CD8 LYMPHOCYTE [id number] 00:00:00* Test Item Value Reference Range Interpretation Comme nts ABSOLUTE LYMPHOCYTES (test c ode = 15183) 807 PERUL PERCENT CD4 (test code = 33338) 13.1 % ABSOLUTE CD4 (test code = 47949) 105 PERUL PERCENT CD8 (test code = 36133) 61.6 % ABSOLUTE CD8 (test code = 21473) 497 PERUL CD4/CD8 RATIO (test code = 49748) 0.21 Delfino Schumacher AustinCD4/CD8 LYMPHOCYTE [id number] 00:00:00* Test Item Value Reference Range Interpretation Comme nts ABSOLUTE LYMPHOCYTES (test c ode = 47631) 807 PERUL PERCENT CD4 (test code = 75199) 13.1 % ABSOLUTE CD4 (test code = 99552) 105 PERUL PERCENT CD8 (test code = 65647) 61.6 % ABSOLUTE CD8 (test code = 66076) 497 PERUL CD4/CD8 RATIO (test code = 80948) 0.21 Delfino Schumacher AustinCD4/CD8 LYMPHOCYTE [id number] 00:00:00* Test Item Value Reference Range Interpretation Comme nts ABSOLUTE LYMPHOCYTES (test c ode = 18782) 807 PERUL PERCENT CD4 (test code = 25517) 13.1 % ABSOLUTE CD4 (test code = 55690) 105 PERUL PERCENT CD8 (test code = 33661) 61.6 % ABSOLUTE CD8 (test code = 72545) 497 PERUL CD4/CD8 RATIO (test code = 41217) 0.21 Delfino F AustinCD4/CD8 LYMPHOCYTE [id number] 00:00:00* Test Item Value Reference Range Interpretation Comme nts ABSOLUTE LYMPHOCYTES (test c ode = 68753) 807 PERUL PERCENT CD4 (test code = 68759) 13.1 % ABSOLUTE CD4 (test code = 66161) 105 PERUL PERCENT CD8 (test code = 20477) 61.6 % ABSOLUTE CD8 (test code = 57394) 497 PERUL CD4/CD8 RATIO (test code = 49359) 0.21 Delfino F AustinCD4/CD8 LYMPHOCYTE [id number] 00:00:00* Test Item Value Reference Range Interpretation Comme nts ABSOLUTE LYMPHOCYTES (test c ode = 52350) 807 PERUL PERCENT CD4 (test code = 82954) 13.1 % ABSOLUTE CD4 (test code = 37978) 105 PERUL PERCENT CD8 (test code = 03343) 61.6 % ABSOLUTE CD8 (test code = 07370) 497 PERUL CD4/CD8 RATIO (test code = 39807) 0.21 CD4/CD8 LYMPHOCYTE [id number] 00:00:00* Test Item Value Reference Range Interpretation Comme nts ABSOLUTE LYMPHOCYTES (test c ode = 54140) 807 PERUL PERCENT CD4 (test code = 43900) 13.1 % ABSOLUTE CD4 (test code = 79592) 105 PERUL PERCENT CD8 (test code = 88193) 61.6 % ABSOLUTE CD8 (test code = 39875) 497 PERUL CD4/CD8 RATIO (test code = 69373) 0.21 CD4/CD8 LYMPHOCYTE [id number] 00:00:00* Test Item Value Reference Range Interpretation Comme nts ABSOLUTE LYMPHOCYTES (test c ode = 03283) 807 PERUL PERCENT CD4 (test code = 93563) 13.1 % ABSOLUTE CD4 (test code = 36661) 105 PERUL PERCENT CD8 (test code = 28654) 61.6 % ABSOLUTE CD8 (test code = 72935) 497 PERUL CD4/CD8 RATIO (test code = 36701) 0.21 Delfino Schumacher AustinCD4/CD8 LYMPHOCYTE [id number] 00:00:00* Test Item Value Reference Range Interpretation Comme nts ABSOLUTE LYMPHOCYTES (test c ode = 18643) 807 PERUL PERCENT CD4 (test code = 63427) 13.1 % ABSOLUTE CD4 (test code = 61697) 105 PERUL PERCENT CD8 (test code = 43115) 61.6 % ABSOLUTE CD8 (test code = 32945) 497 PERUL CD4/CD8 RATIO (test code = 60896) 0.21 Delfino Schumacher AustinCD4/CD8 LYMPHOCYTE [id number] 00:00:00* Test Item Value Reference Range Interpretation Comme nts ABSOLUTE LYMPHOCYTES (test c ode = 58110) 807 PERUL PERCENT CD4 (test code = 60718) 13.1 % ABSOLUTE CD4 (test code = 98627) 105 PERUL PERCENT CD8 (test code = 52164) 61.6 % ABSOLUTE CD8 (test code = 38051) 497 PERUL CD4/CD8 RATIO (test code = 09830) 0.21 CD4/CD8 LYMPHOCYTE [id number] 00:00:00* Test Item Value Reference Range Interpretation Comme nts ABSOLUTE LYMPHOCYTES (test c ode = 43353) 807 PERUL PERCENT CD4 (test code = 20223) 13.1 % ABSOLUTE CD4 (test code = 64746) 105 PERUL PERCENT CD8 (test code = 31795) 61.6 % ABSOLUTE CD8 (test code = 53811) 497 PERUL CD4/CD8 RATIO (test code = 58602) 0.21 CD4/CD8 LYMPHOCYTE [id number] 00:00:00* Test Item Value Reference Range Interpretation Comme nts ABSOLUTE LYMPHOCYTES (test c ode = 19580) 807 PERUL PERCENT CD4 (test code = 60138) 13.1 % ABSOLUTE CD4 (test code = 08766) 105 PERUL PERCENT CD8 (test code = 15198) 61.6 % ABSOLUTE CD8 (test code = 68294) 497 PERUL CD4/CD8 RATIO (test code = 98951) 0.21 Delfino Schumacher AustinCD4/CD8 LYMPHOCYTE [id number] 00:00:00* Test Item Value Reference Range Interpretation Comme nts ABSOLUTE LYMPHOCYTES (test c ode = 74426) 807 PERUL PERCENT CD4 (test code = 65097) 13.1 % ABSOLUTE CD4 (test code = 97771) 105 PERUL PERCENT CD8 (test code = 02348) 61.6 % ABSOLUTE CD8 (test code = 35539) 497 PERUL CD4/CD8 RATIO (test code = 87198) 0.21 Delfino Schumacher AustinCD4/CD8 LYMPHOCYTE [id number] 00:00:00* Test Item Value Reference Range Interpretation Comme nts ABSOLUTE LYMPHOCYTES (test c ode = 47362) 807 PERUL PERCENT CD4 (test code = 95499) 13.1 % ABSOLUTE CD4 (test code = 42413) 105 PERUL PERCENT CD8 (test code = 29570) 61.6 % ABSOLUTE CD8 (test code = 82167) 497 PERUL CD4/CD8 RATIO (test code = 76856) 0.21 Delfino Schumacher AustinCD4/CD8 LYMPHOCYTE [id number] 00:00:00* Test Item Value Reference Range Interpretation Comme nts ABSOLUTE LYMPHOCYTES (test c ode = 32138) 807 PERUL PERCENT CD4 (test code = 21912) 13.1 % ABSOLUTE CD4 (test code = 68704) 105 PERUL PERCENT CD8 (test code = 83101) 61.6 % ABSOLUTE CD8 (test code = 86327) 497 PERUL CD4/CD8 RATIO (test code = 80598) 0.21 Delfino Schumacher AustinCD4/CD8 LYMPHOCYTE [id number] 00:00:00* Test Item Value Reference Range Interpretation Comme nts ABSOLUTE LYMPHOCYTES (test c ode = 38901) 807 PERUL PERCENT CD4 (test code = 43646) 13.1 % ABSOLUTE CD4 (test code = 14268) 105 PERUL PERCENT CD8 (test code = 95788) 61.6 % ABSOLUTE CD8 (test code = 80809) 497 PERUL CD4/CD8 RATIO (test code = 06891) 0.21 Delfino Schumacher AustinCD4/CD8 LYMPHOCYTE [id number] 00:00:00* Test Item Value Reference Range Interpretation Comme nts ABSOLUTE LYMPHOCYTES (test c ode = 06748) 807 PERUL PERCENT CD4 (test code = 17927) 13.1 % ABSOLUTE CD4 (test code = 64861) 105 PERUL PERCENT CD8 (test code = 06290) 61.6 % ABSOLUTE CD8 (test code = 70046) 497 PERUL CD4/CD8 RATIO (test code = 07531) 0.21 Delfino Schumacher AustinCD4/CD8 LYMPHOCYTE [id number] 00:00:00* Test Item Value Reference Range Interpretation Comme nts ABSOLUTE LYMPHOCYTES (test c ode = 79148) 807 PERUL PERCENT CD4 (test code = 75372) 13.1 % ABSOLUTE CD4 (test code = 71463) 105 PERUL PERCENT CD8 (test code = 99267) 61.6 % ABSOLUTE CD8 (test code = 72596) 497 PERUL CD4/CD8 RATIO (test code = 03852) 0.21 Delfino Schumacher AustinCD4/CD8 LYMPHOCYTE [id number] 00:00:00* Test Item Value Reference Range Interpretation Comme nts ABSOLUTE LYMPHOCYTES (test c ode = 24569) 807 PERUL PERCENT CD4 (test code = 10293) 13.1 % ABSOLUTE CD4 (test code = 88301) 105 PERUL PERCENT CD8 (test code = 20696) 61.6 % ABSOLUTE CD8 (test code = 30348) 497 PERUL CD4/CD8 RATIO (test code = 02009) 0.21 Delfino Schumacher AustinCD4/CD8 LYMPHOCYTE [id number] 00:00:00* Test Item Value Reference Range Interpretation Comme nts ABSOLUTE LYMPHOCYTES (test c ode = 47974) 807 PERUL PERCENT CD4 (test code = 42419) 13.1 % ABSOLUTE CD4 (test code = 21096) 105 PERUL PERCENT CD8 (test code = 47743) 61.6 % ABSOLUTE CD8 (test code = 92430) 497 PERUL CD4/CD8 RATIO (test code = 25424) 0.21 Delfino Schumacher AustinCD4/CD8 LYMPHOCYTE [id number] 00:00:00* Test Item Value Reference Range Interpretation Comme nts ABSOLUTE LYMPHOCYTES (test c ode = 88674) 807 PERUL PERCENT CD4 (test code = 70078) 13.1 % ABSOLUTE CD4 (test code = 64811) 105 PERUL PERCENT CD8 (test code = 48696) 61.6 % ABSOLUTE CD8 (test code = 16945) 497 PERUL CD4/CD8 RATIO (test code = 59385) 0.21 Delfino Schumacher AustinCD4/CD8 LYMPHOCYTE [id number] 00:00:00* Test Item Value Reference Range Interpretation Comme nts ABSOLUTE LYMPHOCYTES (test c ode = 58852) 807 PERUL PERCENT CD4 (test code = 12704) 13.1 % ABSOLUTE CD4 (test code = 80507) 105 PERUL PERCENT CD8 (test code = 62390) 61.6 % ABSOLUTE CD8 (test code = 14798) 497 PERUL CD4/CD8 RATIO (test code = 22352) 0.21 Delfino Schumacher AustinCD4/CD8 LYMPHOCYTE [id number] 00:00:00* Test Item Value Reference Range Interpretation Comme nts ABSOLUTE LYMPHOCYTES (test c ode = 89438) 807 PERUL PERCENT CD4 (test code = 54252) 13.1 % ABSOLUTE CD4 (test code = 20832) 105 PERUL PERCENT CD8 (test code = 84835) 61.6 % ABSOLUTE CD8 (test code = 14701) 497 PERUL CD4/CD8 RATIO (test code = 05408) 0.21 Delfino Schumacher AustinCD4/CD8 LYMPHOCYTE [id number] 00:00:00* Test Item Value Reference Range Interpretation Comme nts ABSOLUTE LYMPHOCYTES (test c ode = 84437) 807 PERUL PERCENT CD4 (test code = 11262) 13.1 % ABSOLUTE CD4 (test code = 29313) 105 PERUL PERCENT CD8 (test code = 56219) 61.6 % ABSOLUTE CD8 (test code = 46604) 497 PERUL CD4/CD8 RATIO (test code = 66477) 0.21 Delfino Schumacher AustinCD4/CD8 LYMPHOCYTE [id number] 00:00:00* Test Item Value Reference Range Interpretation Comme nts ABSOLUTE LYMPHOCYTES (test c ode = 58061) 807 PERUL PERCENT CD4 (test code = 25748) 13.1 % ABSOLUTE CD4 (test code = 62885) 105 PERUL PERCENT CD8 (test code = 23580) 61.6 % ABSOLUTE CD8 (test code = 29628) 497 PERUL CD4/CD8 RATIO (test code = 15971) 0.21 Delfino Schumacher AustinCD4/CD8 LYMPHOCYTE [id number] 00:00:00* Test Item Value Reference Range Interpretation Comme nts ABSOLUTE LYMPHOCYTES (test c ode = 00041) 807 PERUL PERCENT CD4 (test code = 61533) 13.1 % ABSOLUTE CD4 (test code = 09967) 105 PERUL PERCENT CD8 (test code = 39250) 61.6 % ABSOLUTE CD8 (test code = 65772) 497 PERUL CD4/CD8 RATIO (test code = 14867) 0.21 Delfino Schumacher AustinCD4/CD8 LYMPHOCYTE [id number] 00:00:00* Test Item Value Reference Range Interpretation Comme nts ABSOLUTE LYMPHOCYTES (test c ode = 58745) 807 PERUL PERCENT CD4 (test code = 77493) 13.1 % ABSOLUTE CD4 (test code = 01023) 105 PERUL PERCENT CD8 (test code = 11030) 61.6 % ABSOLUTE CD8 (test code = 62343) 497 PERUL CD4/CD8 RATIO (test code = 74433) 0.21 Delfino Schumacher AustinCD4/CD8 LYMPHOCYTE [id number] 00:00:00* Test Item Value Reference Range Interpretation Comme nts ABSOLUTE LYMPHOCYTES (test c ode = 55889) 807 PERUL PERCENT CD4 (test code = 39158) 13.1 % ABSOLUTE CD4 (test code = 09008) 105 PERUL PERCENT CD8 (test code = 99761) 61.6 % ABSOLUTE CD8 (test code = 31365) 497 PERUL CD4/CD8 RATIO (test code = 64436) 0.21 Delfino Schumacher AustinVITAMIN [id number] 00:00:00* Test Item Value Reference Range Interpretation Comme nts VITAMIN B-12 (test code = 2840) 358 PG/ML Delfino Schumacher Austin[place]AMIN [id number] 00:00:00* Test Item Value Reference Range Interpretation Comme nts VITAMIN B-12 (test code = 2840) 358 PG/ML Delfino Schumacher [place] [id number] 00:00:00* Test Item Value Reference Range Interpretation Comme nts VITAMIN B-12 (test code = 2840) 358 PG/ML Delfino Schumacher [place] [id number] 00:00:00* Test Item Value Reference Range Interpretation Comme nts VITAMIN B-12 (test code = 2840) 358 PG/ML Delfino Schumacher [place] [id number] 00:00:00* Test Item Value Reference Range Interpretation Comme nts VITAMIN B-12 (test code = 2840) 358 PG/ML VITAMIN [id number] 00:00:00* Test Item Value Reference Range Interpretation Comme nts VITAMIN B-12 (test code = 2840) 358 PG/ML Delfino Schumacher [place] [id number] 00:00:00* Test Item Value Reference Range Interpretation Comme nts VITAMIN B-12 (test code = 2840) 358 PG/ML VITAMIN [id number] 00:00:00* Test Item Value Reference Range Interpretation Comme nts VITAMIN B-12 (test code = 2840) 358 PG/ML Delfino Schumacher [place] [id number] 00:00:00* Test Item Value Reference Range Interpretation Comme nts VITAMIN B-12 (test code = 2840) 358 PG/ML VITAMIN [id number] 00:00:00* Test Item Value Reference Range Interpretation Comme nts VITAMIN B-12 (test code = 2840) 358 PG/ML VITAMIN [id number] 00:00:00* Test Item Value Reference Range Interpretation Comme nts VITAMIN B-12 (test code = 2840) 358 PG/ML Delfino Schumacher [place] [id number] 00:00:00* Test Item Value Reference Range Interpretation Comme nts VITAMIN B-12 (test code = 2840) 358 PG/ML Delfino Schumacher [place] [id number] 00:00:00* Test Item Value Reference Range Interpretation Comme nts VITAMIN B-12 (test code = 2840) 358 PG/ML Delfino Schumacher [place] [id number] 00:00:00* Test Item Value Reference Range Interpretation Comme nts VITAMIN B-12 (test code = 2840) 358 PG/ML Delfino Schumacher [place] [id number] 00:00:00* Test Item Value Reference Range Interpretation Comme nts VITAMIN B-12 (test code = 2840) 358 PG/ML Delfino Schumacher [place] [id number] 00:00:00* Test Item Value Reference Range Interpretation Comme nts VITAMIN B-12 (test code = 2840) 358 PG/ML Delfino Schumacher AustinVITAMIN [id number] 00:00:00* Test Item Value Reference Range Interpretation Comme nts VITAMIN B-12 (test code = 2840) 358 PG/ML Delfino Schumacher [facility] [id number] 00:00:00* Test Item Value Reference Range Interpretation Comme nts VITAMIN B-12 (test code = 2840) 358 PG/ML Delfino Schumacher [facility] [id number] 00:00:00* Test Item Value Reference Range Interpretation Comme nts VITAMIN B-12 (test code = 2840) 358 PG/ML Delfino Schumacher [facility] [id number] 00:00:00* Test Item Value Reference Range Interpretation Comme nts VITAMIN B-12 (test code = 2840) 358 PG/ML Delfino Schumacher [facility] [id number] 00:00:00* Test Item Value Reference Range Interpretation Comme nts VITAMIN B-12 (test code = 2840) 358 PG/ML Delfino Schumacher [facility] [id number] 00:00:00* Test Item Value Reference Range Interpretation Comme nts VITAMIN B-12 (test code = 2840) 358 PG/ML Delfino Schumacher [facility] [id number] 00:00:00* Test Item Value Reference Range Interpretation Comme nts VITAMIN B-12 (test code = 2840) 358 PG/ML Delfino Schumacher [facility] [id number] 00:00:00* Test Item Value Reference Range Interpretation Comme nts VITAMIN B-12 (test code = 2840) 358 PG/ML Delfino Schumacher [facility] [id number] 00:00:00* Test Item Value Reference Range Interpretation Comme nts VITAMIN B-12 (test code = 2840) 358 PG/ML Delfino Schumacher [facility] [id number] 00:00:00* Test Item Value Reference Range Interpretation Comme nts VITAMIN B-12 (test code = 2840) 358 PG/ML Delfino Schumacher [facility] [id number] 00:00:00* Test Item Value Reference Range Interpretation [...] 32 UG/DL UNSATURATED IBC (test code = 92763) 326 UG/DL CALC TOTAL IBC (test code [...] 32 UG/DL UNSATURATED IBC (test code = 84819) 326 UG/DL CALC TOTAL IBC (test code = 7) 358 UG/DL CALC % IRON SAT (test code = 9) 9 % Delfino Schumacher YouVITAMIN B 12 AND FOLIC [...] 32 UG/DL UNSATURATED IBC (test code = 58414) 326 UG/DL CALC TOTAL IBC (test code [...] 32 UG/DL UNSATURATED IBC (test code = 92447) 326 UG/DL CALC TOTAL IBC (test code [...] 32 UG/DL UNSATURATED IBC (test code = 30331) 326 UG/DL CALC TOTAL IBC (test code [...] 32 UG/DL UNSATURATED IBC (test code = 76986) 326 UG/DL CALC TOTAL IBC (test code = 7) 358 UG/DL CALC % IRON SAT (test code = 9) 9 % Delfino OrtaIRON BINDING CAPACITY AND IRON AND % SATURATION [ADDED] 2018-09-09 00:00:00* Test Item Value Reference Range Interpretation Comme nts IRON, SERUM (test code = 2) 32 UG/DL UNSATURATED IBC (test code = 88066) 326 UG/DL CALC TOTAL IBC (test code = 2077) 358 UG/DL CALC % IRON SAT (test code = 2079) 9 % FERRITIN [ADDED]2018-09-09 00:00:00* Test Item Value Reference Range Interpretation Comme nts FERRITIN (test code = 5) 19 NG/ML Delfino Schumacher AustinTRANSFERRIN [ADDED]2018-09-09 00:00:00* Test Item Value Reference Range Interpretation Comme nts TRANSFERRIN (test code = 4936) 298 MG/DL Delfino Schumacher AustinFERRITIN [ADDED]2018-09-09 00:00:00* Test Item [...] (test code = 1016) (NOTE) Delfino Schumacher YouCBC W/AUTO DIFF WITH PLATELETS [...] 32 UG/DL UNSATURATED IBC (test code = 27436) 326 UG/DL CALC TOTAL IBC (test code = 2077) 358 UG/DL CALC % IRON SAT (test code = 2079) 9 % Delfino F AustinVITAMIN B 12 AND FOLIC ACID [ADDED]2018-09-09 00:00:00* Test Item Value Reference Range Interpretation Comme nts VITAMIN B-12 (test code = 2840) 166 PG/ML FOLIC ACID (test code = 2695) 9.9 UG/L FERRITIN [ADDED]2018-09-09 00:00:00* Test Item Value Reference Range Interpretation Comme nts FERRITIN (test code = 2075) 19 NG/ML Delfino F AustinIRON BINDING CAPACITY AND IRON AND % SATURATION [ADDED] 2018-09-09 00:00:00* Test Item Value Reference Range Interpretation Comme nts IRON, SERUM (test code = 2222) 32 UG/DL UNSATURATED IBC (test code = 41841) 326 UG/DL CALC TOTAL IBC (test code = 2077) 358 UG/DL CALC % IRON SAT (test code = 2079) 9 % TRANSFERRIN [ADDED]2018-09-09 00:00:00* Test Item Value Reference Range Interpretation Comme nts TRANSFERRIN (test code = 4936) 298 MG/DL Delfino Schumacher AustinFERRITIN [ADDED]2018-09-09 00:00:00* Test Item Value Reference Range Interpretation Comme nts FERRITIN (test code = 2075) 19 NG/ML CBC W/AUTO DIFF WITH PLATELETS [ADDED]2018-09-09 00:00:00* [...] (test code = 1016) (NOTE) Delfino Schumacher AustinTRANSFERRIN [ADDED]2018-09-09 00:00:00* Test Item [...] code = 2695) 9.9 UG/L Delfino F AustinVITAMIN B 12 AND FOLIC [...] 32 UG/DL UNSATURATED IBC (test code = 78103) 326 UG/DL CALC TOTAL IBC (test code [...] 32 UG/DL UNSATURATED IBC (test code = 78245) 326 UG/DL CALC TOTAL IBC (test code = 2077) 358 UG/DL CALC % IRON SAT (test code = 2079) 9 % Delfino F AustinFERRITIN [ADDED]2018-09-09 00:00:00* Test Item Value Reference Range Interpretation Comme nts FERRITIN (test code = 2075) 19 NG/ML Delfino F AustinCBC W/AUTO DIFF WITH PLATELETS [...] K/UL COMMENTS (test code = 1016) (NOTE) TRANSFERRIN [ADDED]2018-09-09 00:00:00* Test Item Value Reference [...] 32 UG/DL UNSATURATED IBC (test code = 35353) 326 UG/DL CALC TOTAL IBC (test code [...] 32 UG/DL UNSATURATED IBC (test code = 73374) 326 UG/DL CALC TOTAL IBC (test code [...] 32 UG/DL UNSATURATED IBC (test code = 56706) 326 UG/DL CALC TOTAL IBC (test code [...] 32 UG/DL UNSATURATED IBC (test code = 67623) 326 UG/DL CALC TOTAL IBC (test code [...] 32 UG/DL UNSATURATED IBC (test code = 37076) 326 UG/DL CALC TOTAL IBC (test code [...] 32 UG/DL UNSATURATED IBC (test code = 16595) 326 UG/DL CALC TOTAL IBC (test code [...] 32 UG/DL UNSATURATED IBC (test code = 78595) 326 UG/DL CALC TOTAL IBC (test code [...] 32 UG/DL UNSATURATED IBC (test code = 65361) 326 UG/DL CALC TOTAL IBC (test code [...] 32 UG/DL UNSATURATED IBC (test code = 22102) 326 UG/DL CALC TOTAL IBC (test code [...] 32 UG/DL UNSATURATED IBC (test code = 71771) 326 UG/DL CALC TOTAL IBC (test code [...] 32 UG/DL UNSATURATED IBC (test code = 38688) 326 UG/DL CALC TOTAL IBC (test code [...] 32 UG/DL UNSATURATED IBC (test code = 35752) 326 UG/DL CALC TOTAL IBC (test code [...] 32 UG/DL UNSATURATED IBC (test code = 58558) 326 UG/DL CALC TOTAL IBC (test code [...] 32 UG/DL UNSATURATED IBC (test code = 47205) 326 UG/DL CALC TOTAL IBC (test code [...] 32 UG/DL UNSATURATED IBC (test code = 23658) 326 UG/DL CALC TOTAL IBC (test code [...] = 2695) 9.9 UG/L Delfino OrtaCBC W/AUTO [id number] 00:00:00* Test Item Value Reference Range Interpretation [...] = 1015) 230 K/UL Delfino OrtaCOMPREHENSIVE METABOLIC [id number] 00:00:00* Test Item Value Reference Range Interpretation Comme nts GLUCOSE (test code = 2217) 84 MG/DL BUN (test code = 2208) 12 MG/DL CREATININE (test code = 2214) 1.02 MG/DL eGFR AMER. (test cod e = 68375) 72 ML/MIN/1.73 eGFR NON- AMER. (test code = 61520) 62 ML/MIN/1.73 CALC BUN/CREAT (test code = [...] code = 2219) 9 U/L Delfino OrtaURIC [id number] 00:00:00* Test Item Value Reference Range Interpretation Comme nts URIC ACID (test code = 2233) 7.8 MG/DL Delfino OrtaCBC W/AUTO [id number] 00:00:00* Test Item Value Reference Range Interpretation [...] = 1015) 230 K/UL Delfino OrtaCOMPREHENSIVE METABOLIC [id number] 00:00:00* Test Item Value Reference Range Interpretation Comme nts GLUCOSE (test code = 2217) 84 MG/DL BUN (test code = 2208) 12 MG/DL CREATININE (test code = 2214) 1.02 MG/DL eGFR AMER. (test cod e = 40858) 72 ML/MIN/1.73 eGFR NON- AMER. (test code = 48580) 62 ML/MIN/1.73 CALC BUN/CREAT (test code = [...] code = 2219) 9 U/L Delfino OrtaURIC [id number] 00:00:00* Test Item Value Reference Range Interpretation Comme nts URIC ACID (test code = 2233) 7.8 MG/DL Delfino OrtaCOMPREHENSIVE METABOLIC [id number] 00:00:00* Test Item Value Reference Range Interpretation Comme nts GLUCOSE (test code = 2217) 84 MG/DL BUN (test code = 2208) 12 MG/DL CREATININE (test code = 2214) 1.02 MG/DL eGFR AMER. (test cod e = 95911) 72 ML/MIN/1.73 eGFR NON- AMER. (test code = 85009) 62 ML/MIN/1.73 CALC BUN/CREAT (test code = [...] = 2219) 9 U/L Delfino OrtaCBC W/AUTO [id number] 00:00:00* Test Item Value Reference Range Interpretation [...] = 1015) 230 K/UL Delfino OrtaCOMPREHENSIVE METABOLIC [id number] 00:00:00* Test Item Value Reference Range Interpretation Comme nts GLUCOSE (test code = 2217) 84 MG/DL BUN (test code = 2208) 12 MG/DL CREATININE (test code = 2214) 1.02 MG/DL eGFR AMER. (test cod e = 88458) 72 ML/MIN/1.73 eGFR NON- AMER. (test code = 42080) 62 ML/MIN/1.73 CALC BUN/CREAT (test code = [...] code = 2219) 9 U/L Delfino OrtaURIC [id number] 00:00:00* Test Item Value Reference Range Interpretation Comme nts URIC ACID (test code = 2233) 7.8 MG/DL Delfino OrtaCBC W/AUTO [id number] 00:00:00* Test Item Value Reference Range Interpretation [...] = 1015) 230 K/UL Delfino OrtaCOMPREHENSIVE METABOLIC [id number] 00:00:00* Test Item Value Reference Range Interpretation Comme nts GLUCOSE (test code = 2217) 84 MG/DL BUN (test code = 2208) 12 MG/DL CREATININE (test code = 2214) 1.02 MG/DL eGFR AMER. (test cod e = 68425) 72 ML/MIN/1.73 eGFR NON- AMER. (test code = 61822) 62 ML/MIN/1.73 CALC BUN/CREAT (test code = [...] code = 2219) 9 U/L Delfino OrtaURIC [id number] 00:00:00* Test Item Value Reference Range Interpretation Comme nts URIC ACID (test code = 2233) 7.8 MG/DL Delfino OrtaURIC [id number] 00:00:00* Test Item Value Reference Range Interpretation Comme nts URIC ACID (test code = 2233) 7.8 MG/DL CBC W/AUTO [id number] 00:00:00* Test Item Value Reference Range Interpretation [...] code = 1015) 230 K/UL Delfino Schumacher [facility] W/AUTO [id number] 00:00:00* Test Item Value Reference Range Interpretation [...] code = 1015) 230 K/UL COMPREHENSIVE METABOLIC [id number] 00:00:00* Test Item Value Reference Range Interpretation Comme nts GLUCOSE (test code = 2217) 84 MG/DL BUN (test code = 2208) 12 MG/DL CREATININE (test code = 2214) 1.02 MG/DL eGFR AMER. (test cod e = 62246) 72 ML/MIN/1.73 eGFR NON- AMER. (test code = 32229) 62 ML/MIN/1.73 CALC BUN/CREAT (test code = [...] code = 2219) 9 U/L Delfino Schumacher YouCOMPREHENSIVE METABOLIC [id number] 00:00:00* Test Item Value Reference Range Interpretation Comme nts GLUCOSE (test code = 2217) 84 MG/DL BUN (test code = 2208) 12 MG/DL CREATININE (test code = 2214) 1.02 MG/DL eGFR AMER. (test cod e = 38235) 72 ML/MIN/1.73 eGFR NON- AMER. (test code = 99877) 62 ML/MIN/1.73 CALC BUN/CREAT (test code = [...] (test code = 2219) 9 U/L URIC [id number] 00:00:00* Test Item Value Reference Range Interpretation Comme nts URIC ACID (test code = 2233) 7.8 MG/DL Delfino Schumacher YouURIC [id number] 00:00:00* Test Item Value Reference Range Interpretation Comme nts URIC ACID (test code = 2233) 7.8 MG/DL CBC W/AUTO [id number] 00:00:00* Test Item Value Reference Range Interpretation [...] (test code = 1015) 230 K[facility] [id number] 00:00:00* Test Item Value Reference Range Interpretation [...] code = 1015) 230 K/UL COMPREHENSIVE METABOLIC [id number] 00:00:00* Test Item Value Reference Range Interpretation Comme nts GLUCOSE (test code = 2217) 84 MG/DL BUN (test code = 2208) 12 MG/DL CREATININE (test code = 2214) 1.02 MG/DL eGFR AMER. (test cod e = 85778) 72 ML/MIN/1.73 eGFR NON- AMER. (test code = 52627) 62 ML/MIN/1.73 CALC BUN/CREAT (test code = [...] code = 2219) 9 U/L Delfino Schumacher YouCOMPREHENSIVE METABOLIC [id number] 00:00:00* Test Item Value Reference Range Interpretation Comme nts GLUCOSE (test code = 2217) 84 MG/DL BUN (test code = 2208) 12 MG/DL CREATININE (test code = 2214) 1.02 MG/DL eGFR AMER. (test cod e = 10416) 72 ML/MIN/1.73 eGFR NON- AMER. (test code = 39359) 62 ML/MIN/1.73 CALC BUN/CREAT (test code = [...] (test code = 2219) 9 U/L URIC [id number] 00:00:00* Test Item Value Reference Range Interpretation Comme nts URIC ACID (test code = 2233) 7.8 MG/DL Delfino Schumacher AustinURIC [id number] 00:00:00* Test Item Value Reference Range Interpretation Comme nts URIC ACID (test code = 2233) 7.8 MG/DL CBC W/AUTO [id number] 00:00:00* Test Item Value Reference Range Interpretation [...] code = 1015) 230 K/UL Delfino Schumacher AustinCBC W/AUTO [id number] 00:00:00* Test Item Value Reference Range Interpretation [...] code = 1015) 230 K/UL COMPREHENSIVE METABOLIC [id number] 00:00:00* Test Item Value Reference Range Interpretation Comme nts GLUCOSE (test code = 2217) 84 MG/DL BUN (test code = 2208) 12 MG/DL CREATININE (test code = 2214) 1.02 MG/DL eGFR AMER. (test cod e = 46645) 72 ML/MIN/1.73 eGFR NON- AMER. (test code = 22166) 62 ML/MIN/1.73 CALC BUN/CREAT (test code = [...] code = 2219) 9 U/L COMPREHENSIVE METABOLIC [id number] 00:00:00* Test Item Value Reference Range Interpretation Comme nts GLUCOSE (test code = 2217) 84 MG/DL BUN (test code = 2208) 12 MG/DL CREATININE (test code = 2214) 1.02 MG/DL eGFR AMER. (test cod e = 44352) 72 ML/MIN/1.73 eGFR NON- AMER. (test code = 52495) 62 ML/MIN/1.73 CALC BUN/CREAT (test code = [...] code = 2219) 9 U/L Delfino OrtaURIC [id number] 00:00:00* Test Item Value Reference Range Interpretation Comme nts URIC ACID (test code = 2233) 7.8 MG/DL URIC [id number] 00:00:00* Test Item Value Reference Range Interpretation Comme nts URIC ACID (test code = 2233) 7.8 MG/DL Delfino OrtaCBC W/AUTO [id number] 00:00:00* Test Item Value Reference Range Interpretation [...] code = 1015) 230 K/UL CBC W/AUTO [id number] 00:00:00* Test Item Value Reference Range Interpretation [...] = 1015) 230 K/UL Delfino OrtaCOMPREHENSIVE METABOLIC [id number] 00:00:00* Test Item Value Reference Range Interpretation Comme nts GLUCOSE (test code = 2217) 84 MG/DL BUN (test code = 2208) 12 MG/DL CREATININE (test code = 2214) 1.02 MG/DL eGFR AMER. (test cod e = 69692) 72 ML/MIN/1.73 eGFR NON- AMER. (test code = 99113) 62 ML/MIN/1.73 CALC BUN/CREAT (test code = [...] code = 2219) 9 U/L COMPREHENSIVE METABOLIC [id number] 00:00:00* Test Item Value Reference Range Interpretation Comme nts GLUCOSE (test code = 2217) 84 MG/DL BUN (test code = 2208) 12 MG/DL CREATININE (test code = 2214) 1.02 MG/DL eGFR AMER. (test cod e = 66674) 72 ML/MIN/1.73 eGFR NON- AMER. (test code = 04622) 62 ML/MIN/1.73 CALC BUN/CREAT (test code = [...] = 2219) 9 U/L Delfino Schumacher YouURIC [id number] 00:00:00* Test Item Value Reference Range Interpretation Comme nts URIC ACID (test code = 2233) 7.8 MG/DL Delfino Schumacher YouCBC W/AUTO [id number] 00:00:00* Test Item Value Reference Range Interpretation [...] 1015) 230 K/UL Delfino Schumacher YouCOMPREHENSIVE METABOLIC [id number] 00:00:00* Test Item Value Reference Range Interpretation Comme nts GLUCOSE (test code = 2217) 84 MG/DL BUN (test code = 2208) 12 MG/DL CREATININE (test code = 2214) 1.02 MG/DL eGFR AMER. (test cod e = 18413) 72 ML/MIN/1.73 eGFR NON- AMER. (test code = 95585) 62 ML/MIN/1.73 CALC BUN/CREAT (test code = [...] = 2219) 9 U/L Delfino Endy YouURIC [id number] 00:00:00* Test Item Value Reference Range Interpretation Comme nts URIC ACID (test code = 2233) 7.8 MG/DL Delfino Schumacher YouCBC W/AUTO [id number] 00:00:00* Test Item Value Reference Range Interpretation [...] = 1015) 230 K/UL Delfino OrtaCOMPREHENSIVE METABOLIC [id number] 00:00:00* Test Item Value Reference Range Interpretation Comme nts GLUCOSE (test code = 2217) 84 MG/DL BUN (test code = 2208) 12 MG/DL CREATININE (test code = 2214) 1.02 MG/DL eGFR AMER. (test cod e = 33434) 72 ML/MIN/1.73 eGFR NON- AMER. (test code = 46370) 62 ML/MIN/1.73 CALC BUN/CREAT (test code = [...] code = 2219) 9 U/L Delfino OrtaURIC [id number] 00:00:00* Test Item Value Reference Range Interpretation Comme nts URIC ACID (test code = 2233) 7.8 MG/DL Delfino OrtaCBC W/AUTO [id number] 00:00:00* Test Item Value Reference Range Interpretation [...] = 1015) 230 K/UL Delfino OrtaCOMPREHENSIVE METABOLIC [id number] 00:00:00* Test Item Value Reference Range Interpretation Comme nts GLUCOSE (test code = 2217) 84 MG/DL BUN (test code = 2208) 12 MG/DL CREATININE (test code = 2214) 1.02 MG/DL eGFR AMER. (test cod e = 46683) 72 ML/MIN/1.73 eGFR NON- AMER. (test code = 45579) 62 ML/MIN/1.73 CALC BUN/CREAT (test code = [...] code = 2219) 9 U/L Delfino OrtaURIC [id number] 00:00:00* Test Item Value Reference Range Interpretation Comme nts URIC ACID (test code = 2233) 7.8 MG/DL Delfino OrtaCBC W/AUTO [id number] 00:00:00* Test Item Value Reference Range Interpretation [...] = 1015) 230 K/UL Delfino OrtaCOMPREHENSIVE METABOLIC [id number] 00:00:00* Test Item Value Reference Range Interpretation Comme nts GLUCOSE (test code = 2217) 84 MG/DL BUN (test code = 2208) 12 MG/DL CREATININE (test code = 2214) 1.02 MG/DL eGFR AMER. (test cod e = 53058) 72 ML/MIN/1.73 eGFR NON- AMER. (test code = 94340) 62 ML/MIN/1.73 CALC BUN/CREAT (test code = [...] code = 2219) 9 U/L Delfino OrtaURIC [id number] 00:00:00* Test Item Value Reference Range Interpretation Comme nts URIC ACID (test code = 2233) 7.8 MG/DL Delfino OrtaCBC W/AUTO [id number] 00:00:00* Test Item Value Reference Range Interpretation [...] 1015) 230 K/UL Delfino Schumacher YouCOMPREHENSIVE METABOLIC [id number] 00:00:00* Test Item Value Reference Range Interpretation Comme nts GLUCOSE (test code = 2217) 84 MG/DL BUN (test code = 2208) 12 MG/DL CREATININE (test code = 2214) 1.02 MG/DL eGFR AMER. (test cod e = 35414) 72 ML/MIN/1.73 eGFR NON- AMER. (test code = 70251) 62 ML/MIN/1.73 CALC BUN/CREAT (test code = [...] = 2219) 9 U/L Delfino Schumacher YouURIC [id number] 00:00:00* Test Item Value Reference Range Interpretation Comme nts URIC ACID (test code = 2233) 7.8 MG/DL Delfino OrtaCBC W/AUTO [id number] 00:00:00* Test Item Value Reference Range Interpretation [...] = 1015) 230 K/UL Delfino OrtaCOMPREHENSIVE METABOLIC [id number] 00:00:00* Test Item Value Reference Range Interpretation Comme nts GLUCOSE (test code = 2217) 84 MG/DL BUN (test code = 2208) 12 MG/DL CREATININE (test code = 2214) 1.02 MG/DL eGFR AMER. (test cod e = 46908) 72 ML/MIN/1.73 eGFR NON- AMER. (test code = 42751) 62 ML/MIN/1.73 CALC BUN/CREAT (test code = [...] code = 2219) 9 U/L Delfino OrtaURIC [id number] 00:00:00* Test Item Value Reference Range Interpretation Comme nts URIC ACID (test code = 2233) 7.8 MG/DL Delfino OrtaCBC W/AUTO [id number] 00:00:00* Test Item Value Reference Range Interpretation [...] = 1015) 230 K/UL Delfino OrtaCOMPREHENSIVE METABOLIC [id number] 00:00:00* Test Item Value Reference Range Interpretation Comme nts GLUCOSE (test code = 2217) 84 MG/DL BUN (test code = 2208) 12 MG/DL CREATININE (test code = 2214) 1.02 MG/DL eGFR AMER. (test cod e = 94396) 72 ML/MIN/1.73 eGFR NON- AMER. (test code = 79833) 62 ML/MIN/1.73 CALC BUN/CREAT (test code = [...] code = 2219) 9 U/L Delfino OrtaURIC [id number] 00:00:00* Test Item Value Reference Range Interpretation Comme nts URIC ACID (test code = 2233) 7.8 MG/DL Delfino OrtaCBC W/AUTO [id number] 00:00:00* Test Item Value Reference Range Interpretation [...] = 1015) 230 K/UL Delfino OrtaCOMPREHENSIVE METABOLIC [id number] 00:00:00* Test Item Value Reference Range Interpretation Comme nts GLUCOSE (test code = 2217) 84 MG/DL BUN (test code = 2208) 12 MG/DL CREATININE (test code = 2214) 1.02 MG/DL eGFR AMER. (test cod e = 28938) 72 ML/MIN/1.73 eGFR NON- AMER. (test code = 36254) 62 ML/MIN/1.73 CALC BUN/CREAT (test code = [...] code = 2219) 9 U/L Delfino OrtaURIC [id number] 00:00:00* Test Item Value Reference Range Interpretation Comme nts URIC ACID (test code = 2233) 7.8 MG/DL Delfino OrtaCBC W/AUTO [id number] 00:00:00* Test Item Value Reference Range Interpretation [...] 1015) 230 K/UL Delfino Schumacher YouCOMPREHENSIVE METABOLIC [id number] 00:00:00* Test Item Value Reference Range Interpretation Comme nts GLUCOSE (test code = 2217) 84 MG/DL BUN (test code = 2208) 12 MG/DL CREATININE (test code = 2214) 1.02 MG/DL eGFR AMER. (test cod e = 82746) 72 ML/MIN/1.73 eGFR NON- AMER. (test code = 82437) 62 ML/MIN/1.73 CALC BUN/CREAT (test code = [...] = 2219) 9 U/L Delfino Schumacher YouURIC [id number] 00:00:00* Test Item Value Reference Range Interpretation Comme nts URIC ACID (test code = 2233) 7.8 MG/DL Delfino Schumacher YouCBC W/AUTO [id number] 00:00:00* Test Item Value Reference Range Interpretation [...] 1015) 230 K/UL Delfino Schumacher YouCOMPREHENSIVE METABOLIC [id number] 00:00:00* Test Item Value Reference Range Interpretation Comme nts GLUCOSE (test code = 2217) 84 MG/DL BUN (test code = 2208) 12 MG/DL CREATININE (test code = 2214) 1.02 MG/DL eGFR AMER. (test cod e = 75155) 72 ML/MIN/1.73 eGFR NON- AMER. (test code = 65717) 62 ML/MIN/1.73 CALC BUN/CREAT (test code = [...] code = 2219) 9 U/L Delfino OrtaURIC [id number] 00:00:00* Test Item Value Reference Range Interpretation Comme nts URIC ACID (test code = 2233) 7.8 MG/DL Delfino OrtaCBC W/AUTO [id number] 00:00:00* Test Item Value Reference Range Interpretation [...] = 1015) 230 K/UL Delfino OrtaCOMPREHENSIVE METABOLIC [id number] 00:00:00* Test Item Value Reference Range Interpretation Comme nts GLUCOSE (test code = 2217) 84 MG/DL BUN (test code = 2208) 12 MG/DL CREATININE (test code = 2214) 1.02 MG/DL eGFR AMER. (test cod e = 26434) 72 ML/MIN/1.73 eGFR NON- AMER. (test code = 94962) 62 ML/MIN/1.73 CALC BUN/CREAT (test code = [...] code = 2219) 9 U/L Delfino OrtaURIC [id number] 00:00:00* Test Item Value Reference Range Interpretation Comme nts URIC ACID (test code = 2233) 7.8 MG/DL Delfino OrtaCBC W/AUTO [id number] 00:00:00* Test Item Value Reference Range Interpretation [...] = 1015) 230 K/UL Delfino OrtaCOMPREHENSIVE METABOLIC [id number] 00:00:00* Test Item Value Reference Range Interpretation Comme nts GLUCOSE (test code = 2217) 84 MG/DL BUN (test code = 2208) 12 MG/DL CREATININE (test code = 2214) 1.02 MG/DL eGFR AMER. (test cod e = 85289) 72 ML/MIN/1.73 eGFR NON- AMER. (test code = 32635) 62 ML/MIN/1.73 CALC BUN/CREAT (test code = [...] code = 2219) 9 U/L Delfino OrtaURIC [id number] 00:00:00* Test Item Value Reference Range Interpretation Comme carlito URIC ACID (test code = 2233) 7.8 MG/DL Delfino OrtaCBC W/AUTO [id number] 00:00:00* Test Item Value Reference Range Interpretation [...] = 1015) 230 K/UL Delfino OrtaCOMPREHENSIVE METABOLIC [id number] 00:00:00* Test Item Value Reference Range Interpretation Comme nts GLUCOSE (test code = 2217) 84 MG/DL BUN (test code = 2208) 12 MG/DL CREATININE (test code = 2214) 1.02 MG/DL eGFR AMER. (test cod e = 49687) 72 ML/MIN/1.73 eGFR NON- AMER. (test code = 96806) 62 ML/MIN/1.73 CALC BUN/CREAT (test code = [...] code = 2219) 9 U/L Delfino OrtaURIC [id number] 00:00:00* Test Item Value Reference Range Interpretation Comme nts URIC ACID (test code = 2233) 7.8 MG/DL Delfino OrtaCBC W/AUTO [id number] 00:00:00* Test Item Value Reference Range Interpretation [...] code = 1015) 230 K/UL Delfino OrtaURIC [id number] 00:00:00* Test Item Value Reference Range Interpretation Comme nts URIC ACID (test code = 2233) 7.8 MG/DL Delfino Schumacher YouCBC W/AUTO [id number] 00:00:00* Test Item Value Reference Range Interpretation [...] 1015) 230 K/UL Delfino Schumacher YouCOMPREHENSIVE METABOLIC [id number] 00:00:00* Test Item Value Reference Range Interpretation Comme nts GLUCOSE (test code = 2217) 84 MG/DL BUN (test code = 2208) 12 MG/DL CREATININE (test code = 2214) 1.02 MG/DL eGFR AMER. (test cod e = 03885) 72 ML/MIN/1.73 eGFR NON- AMER. (test code = 90272) 62 ML/MIN/1.73 CALC BUN/CREAT (test code = [...] code = 2219) 9 U/L Delfino OrtaURIC [id number] 00:00:00* Test Item Value Reference Range Interpretation Comme nts URIC ACID (test code = 2233) 7.8 MG/DL Delfino OrtaLIPID [id number] 00:00:00* Test Item Value Reference Range Interpretation Comme nts CHOLESTEROL (test code = 2210) 215 MG/DL TRIGLYCERIDES (test code = 2232) 61 MG/DL HDL CHOLESTEROL (test code = 2220) 93 MG/DL CALC LDL CHOL (test code = 2237) 110 MG/DL RISK RATIO LDL/HDL (test cod e = 2238) 1.18 RATIO Delfino OrtaCOMPREHENSIVE METABOLIC [id number] 00:00:00* Test Item Value Reference Range Interpretation Comme nts GLUCOSE (test code = 2217) 93 MG/DL BUN (test code = 2208) 20 MG/DL CREATININE (test code = 2214) 1.18 MG/DL eGFR AMER. (test cod e = 86679) 61 ML/MIN/1.73 eGFR NON- AMER. (test code = 51031) 52 ML/MIN/1.73 CALC BUN/CREAT (test code = [...] = 2219) 15 U/L Delfino OrtaCBC W/AUTO [id number] 00:00:00* Test Item Value Reference Range Interpretation [...] code = 1015) 317 K/UL Delfino OrtaLIPID [id number] 00:00:00* Test Item Value Reference Range Interpretation Comme nts CHOLESTEROL (test code = 2210) 215 MG/DL TRIGLYCERIDES (test code = 2232) 61 MG/DL HDL CHOLESTEROL (test code = 2220) 93 MG/DL CALC LDL CHOL (test code = 2237) 110 MG/DL RISK RATIO LDL/HDL (test cod e = 2238) 1.18 RATIO Delfino OrtaCOMPREHENSIVE METABOLIC [id number] 00:00:00* Test Item Value Reference Range Interpretation Comme nts GLUCOSE (test code = 2217) 93 MG/DL BUN (test code = 2208) 20 MG/DL CREATININE (test code = 2214) 1.18 MG/DL eGFR AMER. (test cod e = 07602) 61 ML/MIN/1.73 eGFR NON- AMER. (test code = 71607) 52 ML/MIN/1.73 CALC BUN/CREAT (test code = [...] (test code = 2219) 15 U/L Delfino OrtaCOMPREHENSIVE METABOLIC [id number] 00:00:00* Test Item Value Reference Range Interpretation Comme nts GLUCOSE (test code = 2217) 93 MG/DL BUN (test code = 2208) 20 MG/DL CREATININE (test code = 2214) 1.18 MG/DL eGFR AMER. (test cod e = 21286) 61 ML/MIN/1.73 eGFR NON- AMER. (test code = 92375) 52 ML/MIN/1.73 CALC BUN/CREAT (test code = [...] = 2219) 15 U/L Delfino OrtaCBC W/AUTO [id number] 00:00:00* Test Item Value Reference Range Interpretation [...] code = 1015) 317 K/UL Delfino OrtaLIPID [id number] 00:00:00* Test Item Value Reference Range Interpretation Comme nts CHOLESTEROL (test code = 2210) 215 MG/DL TRIGLYCERIDES (test code = 2232) 61 MG/DL HDL CHOLESTEROL (test code = 2220) 93 MG/DL CALC LDL CHOL (test code = 2237) 110 MG/DL RISK RATIO LDL/HDL (test cod e = 2238) 1.18 RATIO Delfino OrtaCOMPREHENSIVE METABOLIC [id number] 00:00:00* Test Item Value Reference Range Interpretation Comme nts GLUCOSE (test code = 2217) 93 MG/DL BUN (test code = 2208) 20 MG/DL CREATININE (test code = 2214) 1.18 MG/DL eGFR AMER. (test cod e = 62174) 61 ML/MIN/1.73 eGFR NON- AMER. (test code = 14450) 52 ML/MIN/1.73 CALC BUN/CREAT (test code = [...] = 2219) 15 U/L Delfino OrtaCBC W/AUTO [id number] 00:00:00* Test Item Value Reference Range Interpretation [...] code = 1015) 317 K/UL Delfino OrtaLIPID [id number] 00:00:00* Test Item Value Reference Range Interpretation Comme nts CHOLESTEROL (test code = 2210) 215 MG/DL TRIGLYCERIDES (test code = 2232) 61 MG/DL HDL CHOLESTEROL (test code = 2220) 93 MG/DL CALC LDL CHOL (test code = 2237) 110 MG/DL RISK RATIO LDL/HDL (test cod e = 2238) 1.18 RATIO Delfino OrtaCOMPREHENSIVE METABOLIC [id number] 00:00:00* Test Item Value Reference Range Interpretation Comme nts GLUCOSE (test code = 2217) 93 MG/DL BUN (test code = 2208) 20 MG/DL CREATININE (test code = 2214) 1.18 MG/DL eGFR AMER. (test cod e = 74231) 61 ML/MIN/1.73 eGFR NON- AMER. (test code = 44800) 52 ML/MIN/1.73 CALC BUN/CREAT (test code = [...] code = 2219) 15 U/L Delfino Endy [employer] Sloss EnterprisesCBC W/AUTO [id number] 00:00:00* Test Item Value Reference Range Interpretation [...] code = 1015) 317 K/UL Delfino Endy [facility]-Rita Sloss EnterprisesCBC W/AUTO [id number] 00:00:00* Test Item Value Reference Range Interpretation [...] (test code = 1015) 317 K/UL LIPID [id number] 00:00:00* Test Item Value Reference Range Interpretation Comme nts CHOLESTEROL (test code = 2210) 215 MG/DL TRIGLYCERIDES (test code = 2232) 61 MG/DL HDL CHOLESTEROL (test code = 2220) 93 MG/DL CALC LDL CHOL (test code = 2237) 110 MG/DL RISK RATIO LDL/HDL (test cod e = 2238) 1.18 RATIO LIPID [id number] 00:00:00* Test Item Value Reference Range Interpretation Comme nts CHOLESTEROL (test code = 2210) 215 MG/DL TRIGLYCERIDES (test code = 2232) 61 MG/DL HDL CHOLESTEROL (test code = 2220) 93 MG/DL CALC LDL CHOL (test code = 2237) 110 MG/DL RISK RATIO LDL/HDL (test cod e = 2238) 1.18 RATIO Delfino F AustinCOMPREHENSIVE METABOLIC [id number] 00:00:00* Test Item Value Reference Range Interpretation Comme nts GLUCOSE (test code = 2217) 93 MG/DL BUN (test code = 2208) 20 MG/DL CREATININE (test code = 2214) 1.18 MG/DL eGFR AMER. (test cod e = 19597) 61 ML/MIN/1.73 eGFR NON- AMER. (test code = 25784) 52 ML/MIN/1.73 CALC BUN/CREAT (test code = [...] code = 2219) 15 U/L COMPREHENSIVE METABOLIC [id number] 00:00:00* Test Item Value Reference Range Interpretation Comme nts GLUCOSE (test code = 2217) 93 MG/DL BUN (test code = 2208) 20 MG/DL CREATININE (test code = 2214) 1.18 MG/DL eGFR AMER. (test cod e = 51881) 61 ML/MIN/1.73 eGFR NON- AMER. (test code = 35723) 52 ML/MIN/1.73 CALC BUN/CREAT (test code = [...] (test code = 2219) 15 U[facility] [id number] 00:00:00* Test Item Value Reference Range Interpretation [...] = 1015) 317 K/UL Delfino OrtaCBC W/AUTO [id number] 00:00:00* Test Item Value Reference Range Interpretation [...] (test code = 1015) 317 K/UL LIPID [id number] 00:00:00* Test Item Value Reference Range Interpretation Comme nts CHOLESTEROL (test code = 2210) 215 MG/DL TRIGLYCERIDES (test code = 2232) 61 MG/DL HDL CHOLESTEROL (test code = 2220) 93 MG/DL CALC LDL CHOL (test code = 2237) 110 MG/DL RISK RATIO LDL/HDL (test cod e = 2238) 1.18 RATIO Delfino OrtaLIPID [id number] 00:00:00* Test Item Value Reference Range Interpretation Comme nts CHOLESTEROL (test code = 2210) 215 MG/DL TRIGLYCERIDES (test code = 2232) 61 MG/DL HDL CHOLESTEROL (test code = 2220) 93 MG/DL CALC LDL CHOL (test code = 2237) 110 MG/DL RISK RATIO LDL/HDL (test cod e = 2238) 1.18 RATIO COMPREHENSIVE METABOLIC [id number] 00:00:00* Test Item Value Reference Range Interpretation Comme nts GLUCOSE (test code = 2217) 93 MG/DL BUN (test code = 2208) 20 MG/DL CREATININE (test code = 2214) 1.18 MG/DL eGFR AMER. (test cod e = 27255) 61 ML/MIN/1.73 eGFR NON- AMER. (test code = 22815) 52 ML/MIN/1.73 CALC BUN/CREAT (test code = [...] (test code = 2219) 15 U/L Delfino OrtaCOMPREHENSIVE METABOLIC [id number] 00:00:00* Test Item Value Reference Range Interpretation Comme nts GLUCOSE (test code = 2217) 93 MG/DL BUN (test code = 2208) 20 MG/DL CREATININE (test code = 2214) 1.18 MG/DL eGFR AMER. (test cod e = 98101) 61 ML/MIN/1.73 eGFR NON- AMER. (test code = 49331) 52 ML/MIN/1.73 CALC BUN/CREAT (test code = [...] code = 2219) 15 U/L CBC W/AUTO [id number] 00:00:00* Test Item Value Reference Range Interpretation [...] code = 1015) 317 K/UL CBC W/AUTO [id number] 00:00:00* Test Item Value Reference Range Interpretation [...] = 1015) 317 K/UL Delfino Schumacher AustinLIPID [id number] 00:00:00* Test Item Value Reference Range Interpretation Comme nts CHOLESTEROL (test code = 2210) 215 MG/DL TRIGLYCERIDES (test code = 2232) 61 MG/DL HDL CHOLESTEROL (test code = 2220) 93 MG/DL CALC LDL CHOL (test code = 2237) 110 MG/DL RISK RATIO LDL/HDL (test cod e = 2238) 1.18 RATIO Delfino Schumacher AustinLIPID [id number] 00:00:00* Test Item Value Reference Range Interpretation Comme nts CHOLESTEROL (test code = 2210) 215 MG/DL TRIGLYCERIDES (test code = 2232) 61 MG/DL HDL CHOLESTEROL (test code = 2220) 93 MG/DL CALC LDL CHOL (test code = 2237) 110 MG/DL RISK RATIO LDL/HDL (test cod e = 2238) 1.18 RATIO COMPREHENSIVE METABOLIC [id number] 00:00:00* Test Item Value Reference Range Interpretation Comme nts GLUCOSE (test code = 2217) 93 MG/DL BUN (test code = 2208) 20 MG/DL CREATININE (test code = 2214) 1.18 MG/DL eGFR AMER. (test cod e = 39644) 61 ML/MIN/1.73 eGFR NON- AMER. (test code = 52686) 52 ML/MIN/1.73 CALC BUN/CREAT (test code = [...] code = 2219) 15 U/L COMPREHENSIVE METABOLIC [id number] 00:00:00* Test Item Value Reference Range Interpretation Comme nts GLUCOSE (test code = 2217) 93 MG/DL BUN (test code = 2208) 20 MG/DL CREATININE (test code = 2214) 1.18 MG/DL eGFR AMER. (test cod e = 63340) 61 ML/MIN/1.73 eGFR NON- AMER. (test code = 42373) 52 ML/MIN/1.73 CALC BUN/CREAT (test code = [...] = 2219) 15 U/L Delfino OrtaCB W/AUTO [id number] 00:00:00* Test Item Value Reference Range Interpretation [...] (test code = 1015) 317 K/UL LIPID [id number] 00:00:00* Test Item Value Reference Range Interpretation Comme nts CHOLESTEROL (test code = 2210) 215 MG/DL TRIGLYCERIDES (test code = 2232) 61 MG/DL HDL CHOLESTEROL (test code = 2220) 93 MG/DL CALC LDL CHOL (test code = 2237) 110 MG/DL RISK RATIO LDL/HDL (test cod e = 2238) 1.18 RATIO CBC W/AUTO [id number] 00:00:00* Test Item Value Reference Range Interpretation [...] 1015) 317 K/UL Delfino F AustinCOMPREHENSIVE METABOLIC [id number] 00:00:00* Test Item Value Reference Range Interpretation Comme nts GLUCOSE (test code = 2217) 93 MG/DL BUN (test code = 2208) 20 MG/DL CREATININE (test code = 2214) 1.18 MG/DL eGFR AMER. (test cod e = 64717) 61 ML/MIN/1.73 eGFR NON- AMER. (test code = 92588) 52 ML/MIN/1.73 CALC BUN/CREAT (test code = [...] (test code = 2219) 15 U/L LIPID [id number] 00:00:00* Test Item Value Reference Range Interpretation Comme nts CHOLESTEROL (test code = 2210) 215 MG/DL TRIGLYCERIDES (test code = 2232) 61 MG/DL HDL CHOLESTEROL (test code = 2220) 93 MG/DL CALC LDL CHOL (test code = 2237) 110 MG/DL RISK RATIO LDL/HDL (test cod e = 2238) 1.18 RATIO Delfino F AustinCOMPREHENSIVE METABOLIC [id number] 00:00:00* Test Item Value Reference Range Interpretation Comme nts GLUCOSE (test code = 2217) 93 MG/DL BUN (test code = 8) 20 MG/DL CREATININE (test code = 2214) 1.18 MG/DL eGFR AMER. (test cod e = 08366) 61 ML/MIN/1.73 eGFR NON- AMER. (test code = 11835) 52 ML/MIN/1.73 CALC BUN/CREAT (test code = [...] = 2219) 15 U/L Delfino OrtaCBC W/AUTO [id number] 00:00:00* Test Item Value Reference Range Interpretation [...] code = 1015) 317 K/UL Delfino OrtaLIPID [id number] 00:00:00* Test Item Value Reference Range Interpretation Comme nts CHOLESTEROL (test code = 2210) 215 MG/DL TRIGLYCERIDES (test code = 2232) 61 MG/DL HDL CHOLESTEROL (test code = 2220) 93 MG/DL CALC LDL CHOL (test code = 2237) 110 MG/DL RISK RATIO LDL/HDL (test cod e = 2238) 1.18 RATIO Delfino OrtaCOMPREHENSIVE METABOLIC [id number] 00:00:00* Test Item Value Reference Range Interpretation Comme nts GLUCOSE (test code = 2217) 93 MG/DL BUN (test code = 2208) 20 MG/DL CREATININE (test code = 2214) 1.18 MG/DL eGFR AMER. (test cod e = 44150) 61 ML/MIN/1.73 eGFR NON- AMER. (test code = 98888) 52 ML/MIN/1.73 CALC BUN/CREAT (test code = [...] 2219) 15 U/L Delfino Endy YouCBC W/AUTO [id number] 00:00:00* Test Item Value Reference Range Interpretation [...] code = 1015) 317 K/UL Delfino OrtaLIPID [id number] 00:00:00* Test Item Value Reference Range Interpretation Comme nts CHOLESTEROL (test code = 2210) 215 MG/DL TRIGLYCERIDES (test code = 2232) 61 MG/DL HDL CHOLESTEROL (test code = 2220) 93 MG/DL CALC LDL CHOL (test code = 2237) 110 MG/DL RISK RATIO LDL/HDL (test cod e = 2238) 1.18 RATIO Delfino OrtaCOMPREHENSIVE METABOLIC [id number] 00:00:00* Test Item Value Reference Range Interpretation Comme nts GLUCOSE (test code = 2217) 93 MG/DL BUN (test code = 2208) 20 MG/DL CREATININE (test code = 2214) 1.18 MG/DL eGFR AMER. (test cod e = 79820) 61 ML/MIN/1.73 eGFR NON- AMER. (test code = 13066) 52 ML/MIN/1.73 CALC BUN/CREAT (test code = [...] = 2219) 15 U/L Delfino OrtaCBC W/AUTO [id number] 00:00:00* Test Item Value Reference Range Interpretation [...] code = 1015) 317 K/UL Delfino OrtaLIPID [id number] 00:00:00* Test Item Value Reference Range Interpretation Comme nts CHOLESTEROL (test code = 2210) 215 MG/DL TRIGLYCERIDES (test code = 2232) 61 MG/DL HDL CHOLESTEROL (test code = 2220) 93 MG/DL CALC LDL CHOL (test code = 2237) 110 MG/DL RISK RATIO LDL/HDL (test cod e = 2238) 1.18 RATIO Delfino OrtaCOMPREHENSIVE METABOLIC [id number] 00:00:00* Test Item Value Reference Range Interpretation Comme nts GLUCOSE (test code = 2217) 93 MG/DL BUN (test code = 2208) 20 MG/DL CREATININE (test code = 2214) 1.18 MG/DL eGFR AMER. (test cod e = 57612) 61 ML/MIN/1.73 eGFR NON- AMER. (test code = 98628) 52 ML/MIN/1.73 CALC BUN/CREAT (test code = [...] = 2219) 15 U/L Delfino OrtaCBC W/AUTO [id number] 00:00:00* Test Item Value Reference Range Interpretation [...] code = 1015) 317 K/UL Delfino OrtaLIPID [id number] 00:00:00* Test Item Value Reference Range Interpretation Comme nts CHOLESTEROL (test code = 2210) 215 MG/DL TRIGLYCERIDES (test code = 2232) 61 MG/DL HDL CHOLESTEROL (test code = 2220) 93 MG/DL CALC LDL CHOL (test code = 2237) 110 MG/DL RISK RATIO LDL/HDL (test cod e = 2238) 1.18 RATIO Delfino OrtaCOMPREHENSIVE METABOLIC [id number] 00:00:00* Test Item Value Reference Range Interpretation Comme nts GLUCOSE (test code = 2217) 93 MG/DL BUN (test code = 2208) 20 MG/DL CREATININE (test code = 2214) 1.18 MG/DL eGFR AMER. (test cod e = 53200) 61 ML/MIN/1.73 eGFR NON- AMER. (test code = 00949) 52 ML/MIN/1.73 CALC BUN/CREAT (test code = [...] = 2219) 15 U/L Delfino OrtaCBC W/AUTO [id number] 00:00:00* Test Item Value Reference Range Interpretation [...] code = 1015) 317 K/UL Delfino OrtaLIPID [id number] 00:00:00* Test Item Value Reference Range Interpretation Comme nts CHOLESTEROL (test code = 2210) 215 MG/DL TRIGLYCERIDES (test code = 2232) 61 MG/DL HDL CHOLESTEROL (test code = 2220) 93 MG/DL CALC LDL CHOL (test code = 2237) 110 MG/DL RISK RATIO LDL/HDL (test cod e = 2238) 1.18 RATIO Delfino OrtaCOMPREHENSIVE METABOLIC [id number] 00:00:00* Test Item Value Reference Range Interpretation Comme nts GLUCOSE (test code = 2217) 93 MG/DL BUN (test code = 2208) 20 MG/DL CREATININE (test code = 2214) 1.18 MG/DL eGFR AMER. (test cod e = 60437) 61 ML/MIN/1.73 eGFR NON- AMER. (test code = 07817) 52 ML/MIN/1.73 CALC BUN/CREAT (test code = [...] = 2219) 15 U/L Delfino OrtaCBC W/AUTO [id number] 00:00:00* Test Item Value Reference Range Interpretation [...] code = 1015) 317 K/UL Delfino OrtaLIPID [id number] 00:00:00* Test Item Value Reference Range Interpretation Comme nts CHOLESTEROL (test code = 2210) 215 MG/DL TRIGLYCERIDES (test code = 2232) 61 MG/DL HDL CHOLESTEROL (test code = 2220) 93 MG/DL CALC LDL CHOL (test code = 2237) 110 MG/DL RISK RATIO LDL/HDL (test cod e = 2238) 1.18 RATIO Delfino OrtaCOMPREHENSIVE METABOLIC [id number] 00:00:00* Test Item Value Reference Range Interpretation Comme nts GLUCOSE (test code = 2217) 93 MG/DL BUN (test code = 2208) 20 MG/DL CREATININE (test code = 2214) 1.18 MG/DL eGFR AMER. (test cod e = 95707) 61 ML/MIN/1.73 eGFR NON- AMER. (test code = 69952) 52 ML/MIN/1.73 CALC BUN/CREAT (test code = [...] = 2219) 15 U/L Delfino OrtaCBC W/AUTO [id number] 00:00:00* Test Item Value Reference Range Interpretation [...] code = 1015) 317 K/UL Delfino OrtaLIPID [id number] 00:00:00* Test Item Value Reference Range Interpretation Comme nts CHOLESTEROL (test code = 2210) 215 MG/DL TRIGLYCERIDES (test code = 2232) 61 MG/DL HDL CHOLESTEROL (test code = 2220) 93 MG/DL CALC LDL CHOL (test code = 2237) 110 MG/DL RISK RATIO LDL/HDL (test cod e = 2238) 1.18 RATIO Delfino OrtaCOMPREHENSIVE METABOLIC [id number] 00:00:00* Test Item Value Reference Range Interpretation Comme nts GLUCOSE (test code = 2217) 93 MG/DL BUN (test code = 2208) 20 MG/DL CREATININE (test code = 2214) 1.18 MG/DL eGFR AMER. (test cod e = 05139) 61 ML/MIN/1.73 eGFR NON- AMER. (test code = 90528) 52 ML/MIN/1.73 CALC BUN/CREAT (test code = [...] = 2219) 15 U/L Delfion OrtaCBC W/AUTO [id number] 00:00:00* Test Item Value Reference Range Interpretation [...] code = 1015) 317 K/UL Delfino OrtaLIPID [id number] 00:00:00* Test Item Value Reference Range Interpretation Comme nts CHOLESTEROL (test code = 2210) 215 MG/DL TRIGLYCERIDES (test code = 2232) 61 MG/DL HDL CHOLESTEROL (test code = 2220) 93 MG/DL CALC LDL CHOL (test code = 2237) 110 MG/DL RISK RATIO LDL/HDL (test cod e = 2238) 1.18 RATIO Delfino OrtaCOMPREHENSIVE METABOLIC [id number] 00:00:00* Test Item Value Reference Range Interpretation Comme nts GLUCOSE (test code = 2217) 93 MG/DL BUN (test code = 2208) 20 MG/DL CREATININE (test code = 2214) 1.18 MG/DL eGFR AMER. (test cod e = 84599) 61 ML/MIN/1.73 eGFR NON- AMER. (test code = 40548) 52 ML/MIN/1.73 CALC BUN/CREAT (test code = [...] = 2219) 15 U/L Delfino OrtaCBC W/AUTO [id number] 00:00:00* Test Item Value Reference Range Interpretation [...] code = 1015) 317 K/UL Delfino OrtaLIPID [id number] 00:00:00* Test Item Value Reference Range Interpretation Comme nts CHOLESTEROL (test code = 2210) 215 MG/DL TRIGLYCERIDES (test code = 2232) 61 MG/DL HDL CHOLESTEROL (test code = 2220) 93 MG/DL CALC LDL CHOL (test code = 2237) 110 MG/DL RISK RATIO LDL/HDL (test cod e = 2238) 1.18 RATIO Delfino OrtaCOMPREHENSIVE METABOLIC [id number] 00:00:00* Test Item Value Reference Range Interpretation Comme nts GLUCOSE (test code = 2217) 93 MG/DL BUN (test code = 2208) 20 MG/DL CREATININE (test code = 2214) 1.18 MG/DL eGFR AMER. (test cod e = 89237) 61 ML/MIN/1.73 eGFR NON- AMER. (test code = 03666) 52 ML/MIN/1.73 CALC BUN/CREAT (test code = [...] = 2219) 15 U/L Delfino OrtaCBC W/AUTO [id number] 00:00:00* Test Item Value Reference Range Interpretation [...] code = 1015) 317 K/UL Delfino OrtaLIPID [id number] 00:00:00* Test Item Value Reference Range Interpretation Comme nts CHOLESTEROL (test code = 2210) 215 MG/DL TRIGLYCERIDES (test code = 2232) 61 MG/DL HDL CHOLESTEROL (test code = 2220) 93 MG/DL CALC LDL CHOL (test code = 2237) 110 MG/DL RISK RATIO LDL/HDL (test cod e = 2238) 1.18 RATIO Delfino OrtaCOMPREHENSIVE METABOLIC [id number] 00:00:00* Test Item Value Reference Range Interpretation Comme nts GLUCOSE (test code = 2217) 93 MG/DL BUN (test code = 2208) 20 MG/DL CREATININE (test code = 2214) 1.18 MG/DL eGFR AMER. (test cod e = 13995) 61 ML/MIN/1.73 eGFR NON- AMER. (test code = 25039) 52 ML/MIN/1.73 CALC BUN/CREAT (test code = [...] = 2219) 15 U/L Delfino OrtaCBC W/AUTO [id number] 00:00:00* Test Item Value Reference Range Interpretation [...] code = 1015) 317 K/UL Delfino OrtaLIPID [id number] 00:00:00* Test Item Value Reference Range Interpretation Comme nts CHOLESTEROL (test code = 2210) 215 MG/DL TRIGLYCERIDES (test code = 2232) 61 MG/DL HDL CHOLESTEROL (test code = 2220) 93 MG/DL CALC LDL CHOL (test code = 2237) 110 MG/DL RISK RATIO LDL/HDL (test cod e = 2238) 1.18 RATIO Delfino OrtaCOMPREHENSIVE METABOLIC [id number] 00:00:00* Test Item Value Reference Range Interpretation Comme nts GLUCOSE (test code = 2217) 93 MG/DL BUN (test code = 2208) 20 MG/DL CREATININE (test code = 2214) 1.18 MG/DL eGFR AMER. (test cod e = 04542) 61 ML/MIN/1.73 eGFR NON- AMER. (test code = 93101) 52 ML/MIN/1.73 CALC BUN/CREAT (test code = [...] = 2219) 15 U/L Delfino OrtaCBC W/AUTO [id number] 00:00:00* Test Item Value Reference Range Interpretation [...] code = 1015) 317 K/UL Delfino OrtaLIPID [id number] 00:00:00* Test Item Value Reference Range Interpretation Comme nts CHOLESTEROL (test code = 2210) 215 MG/DL TRIGLYCERIDES (test code = 2232) 61 MG/DL HDL CHOLESTEROL (test code = 2220) 93 MG/DL CALC LDL CHOL (test code = 2237) 110 MG/DL RISK RATIO LDL/HDL (test cod e = 2238) 1.18 RATIO Delfino OrtaCOMPREHENSIVE METABOLIC [id number] 00:00:00* Test Item Value Reference Range Interpretation Comme nts GLUCOSE (test code = 2217) 93 MG/DL BUN (test code = 2208) 20 MG/DL CREATININE (test code = 2214) 1.18 MG/DL eGFR AMER. (test cod e = 98950) 61 ML/MIN/1.73 eGFR NON- AMER. (test code = 64457) 52 ML/MIN/1.73 CALC BUN/CREAT (test code = [...] = 2219) 15 U/L Delfino OrtaCBC W/AUTO [id number] 00:00:00* Test Item Value Reference Range Interpretation [...] code = 1015) 317 K/UL Delfino OrtaLIPID [id number] 00:00:00* Test Item Value Reference Range Interpretation Comme nts CHOLESTEROL (test code = 2210) 215 MG/DL TRIGLYCERIDES (test code = 2232) 61 MG/DL HDL CHOLESTEROL (test code = 2220) 93 MG/DL CALC LDL CHOL (test code = 2237) 110 MG/DL RISK RATIO LDL/HDL (test cod e = 2238) 1.18 RATIO Delfino OrtaCOMPREHENSIVE METABOLIC [id number] 00:00:00* Test Item Value Reference Range Interpretation Comme nts GLUCOSE (test code = 2217) 93 MG/DL BUN (test code = 2208) 20 MG/DL CREATININE (test code = 2214) 1.18 MG/DL eGFR AMER. (test cod e = 61366) 61 ML/MIN/1.73 eGFR NON- AMER. (test code = 22724) 52 ML/MIN/1.73 CALC BUN/CREAT (test code = [...] 2219) 15 U/L Delfino Schumacher YouCBC W/AUTO [id number] 00:00:00* Test Item Value Reference Range Interpretation [...] (test code = 1015) 317 K/UL [facility] [id number] 00:00:00* Test Item Value Reference Range Interpretation [...] = 1015) 317 K/UL Delfino F AustinLIPID [id number] 00:00:00* Test Item Value Reference Range Interpretation Comme nts CHOLESTEROL (test code = 2210) 215 MG/DL TRIGLYCERIDES (test code = 2232) 61 MG/DL HDL CHOLESTEROL (test code = 2220) 93 MG/DL CALC LDL CHOL (test code = 2237) 110 MG/DL RISK RATIO LDL/HDL (test cod e = 2238) 1.18 RATIO Delfino OrtaCOMPREHENSIVE METABOLIC [id number] 00:00:00* Test Item Value Reference Range Interpretation Comme nts GLUCOSE (test code = 2217) 93 MG/DL BUN (test code = 2208) 20 MG/DL CREATININE (test code = 2214) 1.18 MG/DL eGFR AMER. (test cod e = 01543) 61 ML/MIN/1.73 eGFR NON- AMER. (test code = 91510) 52 ML/MIN/1.73 CALC BUN/CREAT (test code = [...] (test code = 2219) 15 U/L [facility] [id number] 00:00:00* Test Item Value Reference Range Interpretation [...] (test code = 1015) 317 K/UL Delfino AppiahID [id number] 00:00:00* Test Item Value Reference Range Interpretation [...] Comme nts CULTURE, URINE (test code = 66117) SPECIMEN NUMBER: [id number] Delfino OrtaCULTURE, URINE [ADDED]2017-08-24 00:00:00* Test Item Value Reference Range Interpretation Comme nts CULTURE, URINE (test code = 12146) SPECIMEN NUMBER: [id number] Delfino Schumacher AustinCULTURE, URINE [ADDED]2017-08-24 00:00:00* Test Item Value Reference Range Interpretation Comme nts CULTURE, URINE (test code = 53058) SPECIMEN NUMBER: [id number] Delfino Schumacher AustinCULTURE, URINE [ADDED]2017-08-24 00:00:00* Test Item Value Reference Range Interpretation Comme nts CULTURE, URINE (test code = 27959) SPECIMEN NUMBER: [id number] Delfino Schumacher AustinCULTURE, URINE [ADDED]2017-08-24 00:00:00* Test Item Value Reference Range Interpretation Comme nts CULTURE, URINE (test code = 41517) SPECIMEN NUMBER: [id number] Delfino Schumacher AustinCULTURE, URINE [ADDED]2017-08-24 00:00:00* Test Item Value Reference Range Interpretation Comme nts CULTURE, URINE (test code = 09309) SPECIMEN NUMBER: [id number] Delfino Schumacher AustinCULTURE, URINE [ADDED]2017-08-24 00:00:00* Test Item Value Reference Range Interpretation Comme nts CULTURE, URINE (test code = 05682) SPECIMEN NUMBER: [id number] CULTURE, URINE [ADDED]2017-08-24 00:00:00* Test Item Value Reference Range Interpretation Comme nts CULTURE, URINE (test code = 75850) SPECIMEN NUMBER: [id number] Delfino Schumacher AustinCULTURE, URINE [ADDED]2017-08-24 00:00:00* Test Item Value Reference Range Interpretation Comme nts CULTURE, URINE (test code = 71679) SPECIMEN NUMBER: [id number] CULTURE, URINE [ADDED]2017-08-24 00:00:00* Test Item Value Reference Range Interpretation Comme nts CULTURE, URINE (test code = 85787) SPECIMEN NUMBER: [id number] CULTURE, URINE [ADDED]2017-08-24 00:00:00* Test Item Value Reference Range Interpretation Comme nts CULTURE, URINE (test code = 19466) SPECIMEN NUMBER: [id number] Delfino Schumacher AustinCULTURE, URINE [ADDED]2017-08-24 00:00:00* Test Item Value Reference Range Interpretation Comme nts CULTURE, URINE (test code = 76374) SPECIMEN NUMBER: [id number] CULTURE, URINE [ADDED]2017-08-24 00:00:00* Test Item Value Reference Range Interpretation Comme nts CULTURE, URINE (test code = 59404) SPECIMEN NUMBER: [id number] Delfino Schumacher AustinCULTURE, URINE [ADDED]2017-08-24 00:00:00* Test Item Value Reference Range Interpretation Comme nts CULTURE, URINE (test code = 38827) SPECIMEN NUMBER: [id number] Delfino Schumacher AustinCULTURE, URINE [ADDED]2017-08-24 00:00:00* Test Item Value Reference Range Interpretation Comme nts CULTURE, URINE (test code = 34855) SPECIMEN NUMBER: [id number] Delfino Schumacher AustinCULTURE, URINE [ADDED]2017-08-24 00:00:00* Test Item Value Reference Range Interpretation Comme nts CULTURE, URINE (test code = 90909) SPECIMEN NUMBER: [id number] Delfino Schumacher AustinCULTURE, URINE [ADDED]2017-08-24 00:00:00* Test Item Value Reference Range Interpretation Comme nts CULTURE, URINE (test code = 94598) SPECIMEN NUMBER: [id number] Delfino Schumacher AustinCULTURE, URINE [ADDED]2017-08-24 00:00:00* Test Item Value Reference Range Interpretation Comme nts CULTURE, URINE (test code = 63086) SPECIMEN NUMBER: [id number] Delfino Schumacher AustinCULTURE, URINE [ADDED]2017-08-24 00:00:00* Test Item Value Reference Range Interpretation Comme nts CULTURE, URINE (test code = 73342) SPECIMEN NUMBER: [id number] Delfino OrtaCULTURE, URINE [ADDED]2017-08-24 00:00:00* Test Item Value Reference Range Interpretation Comme nts CULTURE, URINE (test code = 96333) SPECIMEN NUMBER: [id number] Delfino OrtaCULTURE, URINE [ADDED]2017-08-24 00:00:00* Test Item Value Reference Range Interpretation Comme nts CULTURE, URINE (test code = 78075) SPECIMEN NUMBER: [id number] Delfino OrtaCULTURE, URINE [ADDED]2017-08-24 00:00:00* Test Item Value Reference Range Interpretation Comme nts CULTURE, URINE (test code = 62789) SPECIMEN NUMBER: [id number] Delfino OrtaCULTURE, URINE [ADDED]2017-08-24 00:00:00* Test Item Value Reference Range Interpretation Comme nts CULTURE, URINE (test code = 68713) SPECIMEN NUMBER: [id number] Delfino OrtaCULTURE, URINE [ADDED]2017-08-24 00:00:00* Test Item Value Reference Range Interpretation Comme nts CULTURE, URINE (test code = 49304) SPECIMEN NUMBER: [id number] Delfino OrtaCULTURE, URINE [ADDED]2017-08-24 00:00:00* Test Item Value Reference Range Interpretation Comme nts CULTURE, URINE (test code = 13691) SPECIMEN NUMBER: [id number] Delfino OrtaCULTURE, URINE [ADDED]2017-08-24 00:00:00* Test Item Value Reference Range Interpretation Comme nts CULTURE, URINE (test code = 24628) SPECIMEN NUMBER: [id number] Delfino OrtaCULTURE, URINE [ADDED]2017-08-24 00:00:00* Test Item Value Reference Range Interpretation Comme nts CULTURE, URINE (test code = 39738) SPECIMEN NUMBER: [id number] Delfino OrtaCOMPREHENSIVE METABOLIC [id number] 00:00:00* Test Item Value Reference Range Interpretation Comme nts GLUCOSE (test code = 2217) 92 MG/DL BUN (test code = 2208) 23 MG/DL CREATININE (test code = 2214) 1.27 MG/DL eGFR AMER. (test cod e = 33412) 55 ML/MIN/1.73 eGFR NON- AMER. (test code = 34281) 48 ML/MIN/1.73 CALC BUN/CREAT (test code = [...] 2219) 23 U/L Delfino OrtaHEPATITIS C REFLEX [id number] 00:00:00* Test Item Value Reference Range Interpretation Comme nts HEPATITIS C ANTIBODY (test c ode = 4675) NON-REACTIVE Delfino OrtaCBC W/AUTO [id number] 00:00:00* Test Item Value Reference Range Interpretation [...] = 1016) (NOTE) Delfino F AustinCOMPREHENSIVE METABOLIC [id number] 00:00:00* Test Item Value Reference Range Interpretation Comme nts GLUCOSE (test code = 2217) 92 MG/DL BUN (test code = 2208) 23 MG/DL CREATININE (test code = 2214) 1.27 MG/DL eGFR AMER. (test cod e = 71358) 55 ML/MIN/1.73 eGFR NON- AMER. (test code = 22305) 48 ML/MIN/1.73 CALC BUN/CREAT (test code = [...] 2219) 23 U/L Delfino OrtaHEPATITIS C REFLEX [id number] 00:00:00* Test Item Value Reference Range Interpretation Comme nts HEPATITIS C ANTIBODY (test c ode = 4675) NON-REACTIVE Delfino Schumacher AustinHEPATITIS C REFLEX [id number] 00:00:00* Test Item Value Reference Range Interpretation Comme nts HEPATITIS C ANTIBODY (test c ode = 4675) NON-REACTIVE Delfino OrtaCBC W/AUTO [id number] 00:00:00* Test Item Value Reference Range Interpretation [...] code = 1016) (NOTE) Delfino OrtaCOMPREHENSIVE METABOLIC [id number] 00:00:00* Test Item Value Reference Range Interpretation Comme nts GLUCOSE (test code = 2217) 92 MG/DL BUN (test code = 2208) 23 MG/DL CREATININE (test code = 2214) 1.27 MG/DL eGFR AMER. (test cod e = 87855) 55 ML/MIN/1.73 eGFR NON- AMER. (test code = 26966) 48 ML/MIN/1.73 CALC BUN/CREAT (test code = [...] 2219) 23 U/L Delfino OrtaHEPATITIS C REFLEX [id number] 00:00:00* Test Item Value Reference Range Interpretation Comme nts HEPATITIS C ANTIBODY (test c ode = 4675) NON-REACTIVE Delfino OrtaCBC W/AUTO [id number] 00:00:00* Test Item Value Reference Range Interpretation [...] = 1016) (NOTE) Delfino F YouCOMPREHENSIVE METABOLIC [id number] 00:00:00* Test Item Value Reference Range Interpretation Comme nts GLUCOSE (test code = 2217) 92 MG/DL BUN (test code = 2208) 23 MG/DL CREATININE (test code = 2214) 1.27 MG/DL eGFR AMER. (test cod e = 35915) 55 ML/MIN/1.73 eGFR NON- AMER. (test code = 52264) 48 ML/MIN/1.73 CALC BUN/CREAT (test code = [...] 2219) 23 U/L Delfino OrtaHEPATITIS C REFLEX [id number] 00:00:00* Test Item Value Reference Range Interpretation Comme nts HEPATITIS C ANTIBODY (test c ode = 4675) NON-REACTIVE Delfino Schumacher YouCBC W/AUTO [id number] 00:00:00* Test Item Value Reference Range Interpretation [...] (test code = 1016) (NOTE) CBC W/AUTO [id number] 00:00:00* Test Item Value Reference Range Interpretation [...] = 1016) (NOTE) Delfino Schumacher YouCOMPREHENSIVE METABOLIC [id number] 00:00:00* Test Item Value Reference Range Interpretation Comme nts GLUCOSE (test code = 2217) 92 MG/DL BUN (test code = 2208) 23 MG/DL CREATININE (test code = 2214) 1.27 MG/DL eGFR AMER. (test cod e = 65537) 55 ML/MIN/1.73 eGFR NON- AMER. (test code = 42844) 48 ML/MIN/1.73 CALC BUN/CREAT (test code = [...] (test code = 2219) 23 U/L Delfino Endy BaileyCOMPREHENSIVE METABOLIC [id number] 00:00:00* Test Item Value Reference Range Interpretation Comme nts GLUCOSE (test code = 2217) 92 MG/DL BUN (test code = 2208) 23 MG/DL CREATININE (test code = 2214) 1.27 MG/DL eGFR AMER. (test cod e = 45647) 55 ML/MIN/1.73 eGFR NON- AMER. (test code = 20043) 48 ML/MIN/1.73 CALC BUN/CREAT (test code = [...] = 2219) 23 U/L HEPATITIS C REFLEX [id number] 00:00:00* Test Item Value Reference Range Interpretation Comme nts HEPATITIS C ANTIBODY (test c ode = 4675) NON-REACTIVE Delfino Schumacher AustinHEPATITIS C REFLEX [id number] 00:00:00* Test Item Value Reference Range Interpretation Comme nts HEPATITIS C ANTIBODY (test c ode = 4675) NON-REACTIVE CBC W/AUTO [id number] 00:00:00* Test Item Value Reference Range Interpretation [...] (test code = 1016) (NOTE) CBC W/AUTO [id number] 00:00:00* Test Item Value Reference Range Interpretation [...] code = 1016) (NOTE) Delfino OrtaCOMPREHENSIVE METABOLIC [id number] 00:00:00* Test Item Value Reference Range Interpretation Comme nts GLUCOSE (test code = 2217) 92 MG/DL BUN (test code = 2208) 23 MG/DL CREATININE (test code = 2214) 1.27 MG/DL eGFR AMER. (test cod e = 42922) 55 ML/MIN/1.73 eGFR NON- AMER. (test code = 52475) 48 ML/MIN/1.73 CALC BUN/CREAT (test code = [...] 2219) 23 U/L Delfino OrtaHEPATITIS C REFLEX [id number] 00:00:00* Test Item Value Reference Range Interpretation Comme nts HEPATITIS C ANTIBODY (test c ode = 4675) NON-REACTIVE Delfino OrtaCOMPREHENSIVE METABOLIC [id number] 00:00:00* Test Item Value Reference Range Interpretation Comme nts GLUCOSE (test code = 2217) 92 MG/DL BUN (test code = 2208) 23 MG/DL CREATININE (test code = 2214) 1.27 MG/DL eGFR AMER. (test cod e = 55265) 55 ML/MIN/1.73 eGFR NON- AMER. (test code = 93414) 48 ML/MIN/1.73 CALC BUN/CREAT (test code = [...] = 2219) 23 U/L HEPATITIS C REFLEX [id number] 00:00:00* Test Item Value Reference Range Interpretation Comme nts HEPATITIS C ANTIBODY (test c ode = 4675) NON-REACTIVE CBC W/AUTO [id number] 00:00:00* Test Item Value Reference Range Interpretation [...] COMMENTS (test code = 1016) (NOTE) Delfino Forbes W/AUTO [id number] 00:00:00* Test Item Value Reference Range Interpretation [...] (test code = 1016) (NOTE) COMPREHENSIVE METABOLIC [id number] 00:00:00* Test Item Value Reference Range Interpretation Comme nts GLUCOSE (test code = 2217) 92 MG/DL BUN (test code = 2208) 23 MG/DL CREATININE (test code = 2214) 1.27 MG/DL eGFR AMER. (test cod e = 68402) 55 ML/MIN/1.73 eGFR NON- AMER. (test code = 60780) 48 ML/MIN/1.73 CALC BUN/CREAT (test code = [...] code = 2219) 23 U/L COMPREHENSIVE METABOLIC [id number] 00:00:00* Test Item Value Reference Range Interpretation Comme nts GLUCOSE (test code = 2217) 92 MG/DL BUN (test code = 2208) 23 MG/DL CREATININE (test code = 2214) 1.27 MG/DL eGFR AMER. (test cod e = 72391) 55 ML/MIN/1.73 eGFR NON- AMER. (test code = 06606) 48 ML/MIN/1.73 CALC BUN/CREAT (test code = [...] 23 U/L Delfino Schumacher YouHEPATITIS C REFLEX [id number] 00:00:00* Test Item Value Reference Range Interpretation Comme nts HEPATITIS C ANTIBODY (test c ode = 4675) NON-REACTIVE HEPATITIS C REFLEX [id number] 00:00:00* Test Item Value Reference Range Interpretation Comme nts HEPATITIS C ANTIBODY (test c ode = 4675) NON-REACTIVE Delfino Schumacher YouCBC W/AUTO [id number] 00:00:00* Test Item Value Reference Range Interpretation [...] (test code = 1016) (NOTE) COMPREHENSIVE METABOLIC [id number] 00:00:00* Test Item Value Reference Range Interpretation Comme nts GLUCOSE (test code = 2217) 92 MG/DL BUN (test code = 2208) 23 MG/DL CREATININE (test code = 2214) 1.27 MG/DL eGFR AMER. (test cod e = 80458) 55 ML/MIN/1.73 eGFR NON- AMER. (test code = 19576) 48 ML/MIN/1.73 CALC BUN/CREAT (test code = [...] code = 2219) 23 U/L CBC W/AUTO [id number] 00:00:00* Test Item Value Reference Range Interpretation [...] (test code = 1016) (NOTE) Delfino Schumacher MaiaPATITIS C REFLEX [id number] 00:00:00* Test Item Value Reference Range Interpretation Comme nts HEPATITIS C ANTIBODY (test c ode = 4675) NON-REACTIVE COMPREHENSIVE METABOLIC [id number] 00:00:00* Test Item Value Reference Range Interpretation Comme nts GLUCOSE (test code = 2217) 92 MG/DL BUN (test code = 2208) 23 MG/DL CREATININE (test code = 2214) 1.27 MG/DL eGFR AMER. (test cod e = 23563) 55 ML/MIN/1.73 eGFR NON- AMER. (test code = 25670) 48 ML/MIN/1.73 CALC BUN/CREAT (test code = [...] code = 2219) 23 U/L Delfino Schumacher MaiaPATITIS C REFLEX [id number] 00:00:00* Test Item Value Reference Range Interpretation Comme nts HEPATITIS C ANTIBODY (test c ode = 4675) NON-REACTIVE Delfino OrtaCBC W/AUTO [id number] 00:00:00* Test Item Value Reference Range Interpretation [...] code = 1016) (NOTE) Delfino OrtaCOMPREHENSIVE METABOLIC [id number] 00:00:00* Test Item Value Reference Range Interpretation Comme nts GLUCOSE (test code = 2217) 92 MG/DL BUN (test code = 2208) 23 MG/DL CREATININE (test code = 2214) 1.27 MG/DL eGFR AMER. (test cod e = 54386) 55 ML/MIN/1.73 eGFR NON- AMER. (test code = 71892) 48 ML/MIN/1.73 CALC BUN/CREAT (test code = [...] 2219) 23 U/L Delfino OrtaHEPATITIS C REFLEX [id number] 00:00:00* Test Item Value Reference Range Interpretation Comme nts HEPATITIS C ANTIBODY (test c ode = 4675) NON-REACTIVE Delfino OrtaCBC W/AUTO [id number] 00:00:00* Test Item Value Reference Range Interpretation [...] code = 1016) (NOTE) Delfino OrtaCOMPREHENSIVE METABOLIC [id number] 00:00:00* Test Item Value Reference Range Interpretation Comme nts GLUCOSE (test code = 2217) 92 MG/DL BUN (test code = 2208) 23 MG/DL CREATININE (test code = 2214) 1.27 MG/DL eGFR AMER. (test cod e = 18969) 55 ML/MIN/1.73 eGFR NON- AMER. (test code = 22983) 48 ML/MIN/1.73 CALC BUN/CREAT (test code = [...] 2219) 23 U/L Delfino OrtaHEPATITIS C REFLEX [id number] 00:00:00* Test Item Value Reference Range Interpretation Comme nts HEPATITIS C ANTIBODY (test c ode = 4675) NON-REACTIVE Delfino OrtaCBC W/AUTO [id number] 00:00:00* Test Item Value Reference Range Interpretation [...] code = 1016) (NOTE) Delfino OrtaCOMPREHENSIVE METABOLIC [id number] 00:00:00* Test Item Value Reference Range Interpretation Comme nts GLUCOSE (test code = 2217) 92 MG/DL BUN (test code = 2208) 23 MG/DL CREATININE (test code = 2214) 1.27 MG/DL eGFR AMER. (test cod e = 42519) 55 ML/MIN/1.73 eGFR NON- AMER. (test code = 33803) 48 ML/MIN/1.73 CALC BUN/CREAT (test code = [...] 23 U/L Delfino Schumacher YouHEPATITIS C REFLEX [id number] 00:00:00* Test Item Value Reference Range Interpretation Comme nts HEPATITIS C ANTIBODY (test c ode = 4675) NON-REACTIVE Delfino Schumacher YouCBC W/AUTO [id number] 00:00:00* Test Item Value Reference Range Interpretation [...] = 1016) (NOTE) Delfino Schumacher YouCOMPREHENSIVE METABOLIC [id number] 00:00:00* Test Item Value Reference Range Interpretation Comme nts GLUCOSE (test code = 2217) 92 MG/DL BUN (test code = 2208) 23 MG/DL CREATININE (test code = 2214) 1.27 MG/DL eGFR AMER. (test cod e = 67376) 55 ML/MIN/1.73 eGFR NON- AMER. (test code = 46887) 48 ML/MIN/1.73 CALC BUN/CREAT (test code = [...] 23 U/L Delfino Schumacher YouHEPATITIS C REFLEX [id number] 00:00:00* Test Item Value Reference Range Interpretation Comme nts HEPATITIS C ANTIBODY (test c ode = 4675) NON-REACTIVE Delfino Schumacher YouCBC W/AUTO [id number] 00:00:00* Test Item Value Reference Range Interpretation [...] code = 1016) (NOTE) Delfino OrtaCOMPREHENSIVE METABOLIC [id number] 00:00:00* Test Item Value Reference Range Interpretation Comme nts GLUCOSE (test code = 2217) 92 MG/DL BUN (test code = 2208) 23 MG/DL CREATININE (test code = 2214) 1.27 MG/DL eGFR AMER. (test cod e = 99318) 55 ML/MIN/1.73 eGFR NON- AMER. (test code = 72451) 48 ML/MIN/1.73 CALC BUN/CREAT (test code = [...] 2219) 23 U/L Delfino OrtaHEPATITIS C REFLEX [id number] 00:00:00* Test Item Value Reference Range Interpretation Comme carlito HEPATITIS C ANTIBODY (test c ode = 4675) NON-REACTIVE Delfino OrtaCBC W/AUTO [id number] 00:00:00* Test Item Value Reference Range Interpretation [...] code = 1016) (NOTE) Delfino OrtaCOMPREHENSIVE METABOLIC [id number] 00:00:00* Test Item Value Reference Range Interpretation Comme nts GLUCOSE (test code = 2217) 92 MG/DL BUN (test code = 2208) 23 MG/DL CREATININE (test code = 2214) 1.27 MG/DL eGFR AMER. (test cod e = 35929) 55 ML/MIN/1.73 eGFR NON- AMER. (test code = 15097) 48 ML/MIN/1.73 CALC BUN/CREAT (test code = [...] 2219) 23 U/L Delfino OrtaHEPATITIS C REFLEX [id number] 00:00:00* Test Item Value Reference Range Interpretation Comme nts HEPATITIS C ANTIBODY (test c ode = 4675) NON-REACTIVE Delfino OrtaCBC W/AUTO [id number] 00:00:00* Test Item Value Reference Range Interpretation [...] = 1016) (NOTE) Delfino Schumacher YouCOMPREHENSIVE METABOLIC [id number] 00:00:00* Test Item Value Reference Range Interpretation Comme nts GLUCOSE (test code = 2217) 92 MG/DL BUN (test code = 2208) 23 MG/DL CREATININE (test code = 2214) 1.27 MG/DL eGFR AMER. (test cod e = 70258) 55 ML/MIN/1.73 eGFR NON- AMER. (test code = 47391) 48 ML/MIN/1.73 CALC BUN/CREAT (test code = [...] 23 U/L Delfino Schumacher YouHEPATITIS C REFLEX [id number] 00:00:00* Test Item Value Reference Range Interpretation Comme nts HEPATITIS C ANTIBODY (test c ode = 4675) NON-REACTIVE Delfino OrtaCBC W/AUTO [id number] 00:00:00* Test Item Value Reference Range Interpretation [...] code = 1016) (NOTE) Delfino OrtaCOMPREHENSIVE METABOLIC [id number] 00:00:00* Test Item Value Reference Range Interpretation Comme nts GLUCOSE (test code = 2217) 92 MG/DL BUN (test code = 2208) 23 MG/DL CREATININE (test code = 2214) 1.27 MG/DL eGFR AMER. (test cod e = 22637) 55 ML/MIN/1.73 eGFR NON- AMER. (test code = 24147) 48 ML/MIN/1.73 CALC BUN/CREAT (test code = [...] 2219) 23 U/L Delfino OrtaHEPATITIS C REFLEX [id number] 00:00:00* Test Item Value Reference Range Interpretation Comme nts HEPATITIS C ANTIBODY (test c ode = 4675) NON-REACTIVE Delfino OrtaCBC W/AUTO [id number] 00:00:00* Test Item Value Reference Range Interpretation [...] code = 1016) (NOTE) Delfino OrtaCOMPREHENSIVE METABOLIC [id number] 00:00:00* Test Item Value Reference Range Interpretation Comme nts GLUCOSE (test code = 2217) 92 MG/DL BUN (test code = 2208) 23 MG/DL CREATININE (test code = 2214) 1.27 MG/DL eGFR AMER. (test cod e = 79566) 55 ML/MIN/1.73 eGFR NON- AMER. (test code = 22201) 48 ML/MIN/1.73 CALC BUN/CREAT (test code = [...] 2219) 23 U/L Delfino OrtaHEPATITIS C REFLEX [id number] 00:00:00* Test Item Value Reference Range Interpretation Comme nts HEPATITIS C ANTIBODY (test c ode = 4675) NON-REACTIVE Delfino OrtaCBC W/AUTO [id number] 00:00:00* Test Item Value Reference Range Interpretation [...] code = 1016) (NOTE) Delfino OrtaCOMPREHENSIVE METABOLIC [id number] 00:00:00* Test Item Value Reference Range Interpretation Comme nts GLUCOSE (test code = 2217) 92 MG/DL BUN (test code = 2208) 23 MG/DL CREATININE (test code = 2214) 1.27 MG/DL eGFR AMER. (test cod e = 30457) 55 ML/MIN/1.73 eGFR NON- AMER. (test code = 73101) 48 ML/MIN/1.73 CALC BUN/CREAT (test code = [...] 23 U/L Delfino Schumacher YouHEPATITIS C REFLEX [id number] 00:00:00* Test Item Value Reference Range Interpretation Comme nts HEPATITIS C ANTIBODY (test c ode = 4675) NON-REACTIVE Delfino Schumacher YouCBC W/AUTO [id number] 00:00:00* Test Item Value Reference Range Interpretation [...] = 1016) (NOTE) Delfino Schumacher YouCOMPREHENSIVE METABOLIC [id number] 00:00:00* Test Item Value Reference Range Interpretation Comme nts GLUCOSE (test code = 2217) 92 MG/DL BUN (test code = 2208) 23 MG/DL CREATININE (test code = 2214) 1.27 MG/DL eGFR AMER. (test cod e = 96913) 55 ML/MIN/1.73 eGFR NON- AMER. (test code = 86889) 48 ML/MIN/1.73 CALC BUN/CREAT (test code = [...] 23 U/L Delfino Schumacher YouHEPATITIS C REFLEX [id number] 00:00:00* Test Item Value Reference Range Interpretation Comme nts HEPATITIS C ANTIBODY (test c ode = 4675) NON-REACTIVE Delfino Schumacher YouCBC W/AUTO [id number] 00:00:00* Test Item Value Reference Range Interpretation [...] (test code = 1016) (NOTE) Delfino F AustinCBC W/AUTO [id number] 00:00:00* Test Item Value Reference Range Interpretation [...] = 1016) (NOTE) Delfino Schumacher YouCOMPREHENSIVE METABOLIC [id number] 00:00:00* Test Item Value Reference Range Interpretation Comme nts GLUCOSE (test code = 2217) 92 MG/DL BUN (test code = 2208) 23 MG/DL CREATININE (test code = 2214) 1.27 MG/DL eGFR AMER. (test cod e = 25507) 55 ML/MIN/1.73 eGFR NON- AMER. (test code = 68438) 48 ML/MIN/1.73 CALC BUN/CREAT (test code = [...] 2219) 23 U/L Delfino OrtaHEPATITIS C REFLEX [id number] 00:00:00* Test Item Value Reference Range Interpretation Comme nts HEPATITIS C ANTIBODY (test c ode = 4675) NON-REACTIVE Delfino OrtaCBC W/AUTO [id number] 00:00:00* Test Item Value Reference Range Interpretation [...] code = 1016) (NOTE) Delfino OrtaCOMPREHENSIVE METABOLIC [id number] 00:00:00* Test Item Value Reference Range Interpretation Comme nts GLUCOSE (test code = 2217) 92 MG/DL BUN (test code = 2208) 23 MG/DL CREATININE (test code = 2214) 1.27 MG/DL eGFR AMER. (test cod e = 71576) 55 ML/MIN/1.73 eGFR NON- AMER. (test code = 06309) 48 ML/MIN/1.73 CALC BUN/CREAT (test code = [...] 2219) 23 U/L Delfino OrtaHEPATITIS C REFLEX [id number] 00:00:00* Test Item Value Reference Range Interpretation Comme nts HEPATITIS C ANTIBODY (test c ode = 4675) NON-REACTIVE Delfino OrtaCBC W/AUTO [id number] 00:00:00* Test Item Value Reference Range Interpretation [...] code = 1016) (NOTE) Delfino OrtaCOMPREHENSIVE METABOLIC [id number] 00:00:00* Test Item Value Reference Range Interpretation Comme nts GLUCOSE (test code = 2217) 92 MG/DL BUN (test code = 2208) 23 MG/DL CREATININE (test code = 2214) 1.27 MG/DL eGFR AMER. (test cod e = 95482) 55 ML/MIN/1.73 eGFR NON- AMER. (test code = 05493) 48 ML/MIN/1.73 CALC BUN/CREAT (test code = [...] 2219) 23 U/L Delfino OrtaHEPATITIS C REFLEX [id number] 00:00:00* Test Item Value Reference Range Interpretation Comme nts HEPATITIS C ANTIBODY (test c ode = 4675) NON-REACTIVE Delfino Schumacher YouCOMPREHENSIVE METABOLIC [id number] 00:00:00* Test Item Value Reference Range Interpretation Comme nts GLUCOSE (test code = 2217) 92 MG/DL BUN (test code = 2208) 23 MG/DL CREATININE (test code = 2214) 1.27 MG/DL eGFR AMER. (test cod e = 87351) 55 ML/MIN/1.73 eGFR NON- AMER. (test code = 90960) 48 ML/MIN/1.73 CALC BUN/CREAT (test code = [...] = 2219) 23 U/L Delfino OrtaCBC W/AUTO [id number] 00:00:00* Test Item Value Reference Range Interpretation [...] code = 1016) (NOTE) Delfino OrtaCOMPREHENSIVE METABOLIC [id number] 00:00:00* Test Item Value Reference Range Interpretation Comme nts GLUCOSE (test code = 2217) 88 MG/DL BUN (test code = 2208) 24 MG/DL CREATININE (test code = 2214) 0.94 MG/DL eGFR AMER. (test cod e = 84792) 80 ML/MIN/1.73 eGFR NON- AMER. (test code = 55050) 69 ML/MIN/1.73 CALC BUN/CREAT (test code = [...] = 2219) 10 U/L Delfino Schumacher AustinLIPID [id number] 00:00:00* Test Item Value Reference Range Interpretation Comme nts CHOLESTEROL (test code = 2210) 211 MG/DL TRIGLYCERIDES (test code = 2232) 52 MG/DL HDL CHOLESTEROL (test code = 2220) 90 MG/DL CALC LDL CHOL (test code = 2237) 111 MG/DL RISK RATIO LDL/HDL (test cod e = 2238) 1.23 RATIO Delfino OrtaCOMPREHENSIVE METABOLIC [id number] 00:00:00* Test Item Value Reference Range Interpretation Comme nts GLUCOSE (test code = 2217) 88 MG/DL BUN (test code = 2208) 24 MG/DL CREATININE (test code = 2214) 0.94 MG/DL eGFR AMER. (test cod e = 26415) 80 ML/MIN/1.73 eGFR NON- AMER. (test code = 51891) 69 ML/MIN/1.73 CALC BUN/CREAT (test code = [...] = 2219) 10 U/L Delfino Schumacher AustinLIPID [id number] 00:00:00* Test Item Value Reference Range Interpretation Comme nts CHOLESTEROL (test code = 2210) 211 MG/DL TRIGLYCERIDES (test code = 2232) 52 MG/DL HDL CHOLESTEROL (test code = 2220) 90 MG/DL CALC LDL CHOL (test code = 2237) 111 MG/DL RISK RATIO LDL/HDL (test cod e = 2238) 1.23 RATIO Delfino OrtaCBC W/AUTO [id number] 00:00:00* Test Item Value Reference Range Interpretation [...] code = 1016) (NOTE) Delfino OrtaCOMPREHENSIVE METABOLIC [id number] 00:00:00* Test Item Value Reference Range Interpretation Comme nts GLUCOSE (test code = 2217) 88 MG/DL BUN (test code = 2208) 24 MG/DL CREATININE (test code = 2214) 0.94 MG/DL eGFR AMER. (test cod e = 56687) 80 ML/MIN/1.73 eGFR NON- AMER. (test code = 45277) 69 ML/MIN/1.73 CALC BUN/CREAT (test code = [...] code = 2219) 10 U/L Delfino OrtaLIPID [id number] 00:00:00* Test Item Value Reference Range Interpretation Comme nts CHOLESTEROL (test code = 2210) 211 MG/DL TRIGLYCERIDES (test code = 2232) 52 MG/DL HDL CHOLESTEROL (test code = 2220) 90 MG/DL CALC LDL CHOL (test code = 2237) 111 MG/DL RISK RATIO LDL/HDL (test cod e = 2238) 1.23 RATIO Delfino OrtaCBC W/AUTO [id number] 00:00:00* Test Item Value Reference Range Interpretation [...] code = 1016) (NOTE) Delfino OrtaCOMPREHENSIVE METABOLIC [id number] 00:00:00* Test Item Value Reference Range Interpretation Comme nts GLUCOSE (test code = 2217) 88 MG/DL BUN (test code = 2208) 24 MG/DL CREATININE (test code = 2214) 0.94 MG/DL eGFR AMER. (test cod e = 73123) 80 ML/MIN/1.73 eGFR NON- AMER. (test code = 46513) 69 ML/MIN/1.73 CALC BUN/CREAT (test code = [...] code = 2219) 10 U/L Delfino OrtaLIPID [id number] 00:00:00* Test Item Value Reference Range Interpretation Comme nts CHOLESTEROL (test code = 2210) 211 MG/DL TRIGLYCERIDES (test code = 2232) 52 MG/DL HDL CHOLESTEROL (test code = 2220) 90 MG/DL CALC LDL CHOL (test code = 2237) 111 MG/DL RISK RATIO LDL/HDL (test cod e = 2238) 1.23 RATIO Delfino OrtaCBC W/AUTO [id number] 00:00:00* Test Item Value Reference Range Interpretation [...] code = 1016) (NOTE) Delfino OrtaCOMPREHENSIVE METABOLIC [id number] 00:00:00* Test Item Value Reference Range Interpretation Comme nts GLUCOSE (test code = 2217) 88 MG/DL BUN (test code = 2208) 24 MG/DL CREATININE (test code = 2214) 0.94 MG/DL eGFR AMER. (test cod e = 11149) 80 ML/MIN/1.73 eGFR NON- AMER. (test code = 31741) 69 ML/MIN/1.73 CALC BUN/CREAT (test code = [...] code = 2219) 10 U/L Delfino OrtaLIPID [id number] 00:00:00* Test Item Value Reference Range Interpretation Comme nts CHOLESTEROL (test code = 2210) 211 MG/DL TRIGLYCERIDES (test code = 2232) 52 MG/DL HDL CHOLESTEROL (test code = 2220) 90 MG/DL CALC LDL CHOL (test code = 2237) 111 MG/DL RISK RATIO LDL/HDL (test cod e = 2238) 1.23 RATIO Delfino OrtaCBC W/AUTO [id number] 00:00:00* Test Item Value Reference Range Interpretation [...] COMMENTS (test code = 1016) (NOTE) [facility] [id number] 00:00:00* Test Item Value Reference Range Interpretation [...] (test code = 1016) (NOTE) COMPREHENSIVE METABOLIC [id number] 00:00:00* Test Item Value Reference Range Interpretation Comme nts GLUCOSE (test code = 2217) 88 MG/DL BUN (test code = 2208) 24 MG/DL CREATININE (test code = 2214) 0.94 MG/DL eGFR AMER. (test cod e = 70987) 80 ML/MIN/1.73 eGFR NON- AMER. (test code = 89902) 69 ML/MIN/1.73 CALC BUN/CREAT (test code = [...] code = 2219) 10 U/L COMPREHENSIVE METABOLIC [id number] 00:00:00* Test Item Value Reference Range Interpretation Comme nts GLUCOSE (test code = 2217) 88 MG/DL BUN (test code = 2208) 24 MG/DL CREATININE (test code = 2214) 0.94 MG/DL eGFR AMER. (test cod e = 47765) 80 ML/MIN/1.73 eGFR NON- AMER. (test code = 19955) 69 ML/MIN/1.73 CALC BUN/CREAT (test code = [...] = 2219) 10 U/L Delfino F AustinLIPID [id number] 00:00:00* Test Item Value Reference Range Interpretation Comme nts CHOLESTEROL (test code = 2210) 211 MG/DL TRIGLYCERIDES (test code = 2232) 52 MG/DL HDL CHOLESTEROL (test code = 2220) 90 MG/DL CALC LDL CHOL (test code = 2237) 111 MG/DL RISK RATIO LDL/HDL (test cod e = 2238) 1.23 RATIO Delfino OrtaLIPID [id number] 00:00:00* Test Item Value Reference Range Interpretation Comme nts CHOLESTEROL (test code = 2210) 211 MG/DL TRIGLYCERIDES (test code = 2232) 52 MG/DL HDL CHOLESTEROL (test code = 2220) 90 MG/DL CALC LDL CHOL (test code = 2237) 111 MG/DL RISK RATIO LDL/HDL (test cod e = 2238) 1.23 RATIO CBC W/AUTO [id number] 00:00:00* Test Item Value Reference Range Interpretation [...] code = 1016) (NOTE) Delfino OrtaCBC W/AUTO [id number] 00:00:00* Test Item Value Reference Range Interpretation [...] (test code = 1016) (NOTE) COMPREHENSIVE METABOLIC [id number] 00:00:00* Test Item Value Reference Range Interpretation Comme nts GLUCOSE (test code = 2217) 88 MG/DL BUN (test code = 2208) 24 MG/DL CREATININE (test code = 2214) 0.94 MG/DL eGFR AMER. (test cod e = 09257) 80 ML/MIN/1.73 eGFR NON- AMER. (test code = 61687) 69 ML/MIN/1.73 CALC BUN/CREAT (test code = [...] code = 2219) 10 U/L Delfino F YouCOMPREHENSIVE METABOLIC [id number] 00:00:00* Test Item Value Reference Range Interpretation Comme nts GLUCOSE (test code = 2217) 88 MG/DL BUN (test code = 2208) 24 MG/DL CREATININE (test code = 2214) 0.94 MG/DL eGFR AMER. (test cod e = 81412) 80 ML/MIN/1.73 eGFR NON- AMER. (test code = 58464) 69 ML/MIN/1.73 CALC BUN/CREAT (test code = [...] (test code = 2219) 10 U/L LIPID [id number] 00:00:00* Test Item Value Reference Range Interpretation Comme nts CHOLESTEROL (test code = 2210) 211 MG/DL TRIGLYCERIDES (test code = 2232) 52 MG/DL HDL CHOLESTEROL (test code = 2220) 90 MG/DL CALC LDL CHOL (test code = 2237) 111 MG/DL RISK RATIO LDL/HDL (test cod e = 2238) 1.23 RATIO Delfino F AustinLIPID [id number] 00:00:00* Test Item Value Reference Range Interpretation Comme nts CHOLESTEROL (test code = 2210) 211 MG/DL TRIGLYCERIDES (test code = 2232) 52 MG/DL HDL CHOLESTEROL (test code = 2220) 90 MG/DL CALC LDL CHOL (test code = 2237) 111 MG/DL RISK RATIO LDL/HDL (test cod e = 2238) 1.23 RATIO CBC W/AUTO [id number] 00:00:00* Test Item Value Reference Range Interpretation [...] COMMENTS (test code = 1016) (NOTE) [facility] [id number] 00:00:00* Test Item Value Reference Range Interpretation [...] (test code = 1016) (NOTE) COMPREHENSIVE METABOLIC [id number] 00:00:00* Test Item Value Reference Range Interpretation Comme nts GLUCOSE (test code = 2217) 88 MG/DL BUN (test code = 2208) 24 MG/DL CREATININE (test code = 2214) 0.94 MG/DL eGFR AMER. (test cod e = 27184) 80 ML/MIN/1.73 eGFR NON- AMER. (test code = 79489) 69 ML/MIN/1.73 CALC BUN/CREAT (test code = [...] (test code = 2219) 10 U/L Delfino OrtaCOMPREHENSIVE METABOLIC [id number] 00:00:00* Test Item Value Reference Range Interpretation Comme nts GLUCOSE (test code = 2217) 88 MG/DL BUN (test code = 2208) 24 MG/DL CREATININE (test code = 2214) 0.94 MG/DL eGFR AMER. (test cod e = 92905) 80 ML/MIN/1.73 eGFR NON- AMER. (test code = 71155) 69 ML/MIN/1.73 CALC BUN/CREAT (test code = [...] (test code = 2219) 10 U/L LIPID [id number] 00:00:00* Test Item Value Reference Range Interpretation Comme nts CHOLESTEROL (test code = 2210) 211 MG/DL TRIGLYCERIDES (test code = 2232) 52 MG/DL HDL CHOLESTEROL (test code = 2220) 90 MG/DL CALC LDL CHOL (test code = 2237) 111 MG/DL RISK RATIO LDL/HDL (test cod e = 2238) 1.23 RATIO Delfino Schumacher AustinLIPID [id number] 00:00:00* Test Item Value Reference Range Interpretation Comme nts CHOLESTEROL (test code = 2210) 211 MG/DL TRIGLYCERIDES (test code = 2232) 52 MG/DL HDL CHOLESTEROL (test code = 2220) 90 MG/DL CALC LDL CHOL (test code = 2237) 111 MG/DL RISK RATIO LDL/HDL (test cod e = 2238) 1.23 RATIO CBC W/AUTO [id number] 00:00:00* Test Item Value Reference Range Interpretation [...] (test code = 1016) (NOTE) CBC W/AUTO [id number] 00:00:00* Test Item Value Reference Range Interpretation [...] (test code = 1016) (NOTE) Delfino Schumacher AustinCOMPREHENSIVE METABOLIC [id number] 00:00:00* Test Item Value Reference Range Interpretation Comme nts GLUCOSE (test code = 2217) 88 MG/DL BUN (test code = 2208) 24 MG/DL CREATININE (test code = 2214) 0.94 MG/DL eGFR AMER. (test cod e = 41998) 80 ML/MIN/1.73 eGFR NON- AMER. (test code = 49207) 69 ML/MIN/1.73 CALC BUN/CREAT (test code = [...] code = 2219) 10 U/L COMPREHENSIVE METABOLIC [id number] 00:00:00* Test Item Value Reference Range Interpretation Comme nts GLUCOSE (test code = 2217) 88 MG/DL BUN (test code = 2208) 24 MG/DL CREATININE (test code = 2214) 0.94 MG/DL eGFR AMER. (test cod e = 46379) 80 ML/MIN/1.73 eGFR NON- AMER. (test code = 17867) 69 ML/MIN/1.73 CALC BUN/CREAT (test code = [...] = 2219) 10 U/L Delfino Schumacher YouLIPID [id number] 00:00:00* Test Item Value Reference Range Interpretation Comme nts CHOLESTEROL (test code = 2210) 211 MG/DL TRIGLYCERIDES (test code = 2232) 52 MG/DL HDL CHOLESTEROL (test code = 2220) 90 MG/DL CALC LDL CHOL (test code = 2237) 111 MG/DL RISK RATIO LDL/HDL (test cod e = 2238) 1.23 RATIO LIPID [id number] 00:00:00* Test Item Value Reference Range Interpretation Comme nts CHOLESTEROL (test code = 2210) 211 MG/DL TRIGLYCERIDES (test code = 2232) 52 MG/DL HDL CHOLESTEROL (test code = 2220) 90 MG/DL CALC LDL CHOL (test code = 2237) 111 MG/DL RISK RATIO LDL/HDL (test cod e = 2238) 1.23 RATIO Delfino Schumacher YouCBC W/AUTO [id number] 00:00:00* Test Item Value Reference Range Interpretation [...] code = 1016) (NOTE) Delfino OrtaCOMPREHENSIVE METABOLIC [id number] 00:00:00* Test Item Value Reference Range Interpretation Comme nts GLUCOSE (test code = 2217) 88 MG/DL BUN (test code = 2208) 24 MG/DL CREATININE (test code = 2214) 0.94 MG/DL eGFR AMER. (test cod e = 43205) 80 ML/MIN/1.73 eGFR NON- AMER. (test code = 82447) 69 ML/MIN/1.73 CALC BUN/CREAT (test code = [...] code = 2219) 10 U/L Delfino OrtaLIPID [id number] 00:00:00* Test Item Value Reference Range Interpretation Comme nts CHOLESTEROL (test code = 2210) 211 MG/DL TRIGLYCERIDES (test code = 2232) 52 MG/DL HDL CHOLESTEROL (test code = 2220) 90 MG/DL CALC LDL CHOL (test code = 2237) 111 MG/DL RISK RATIO LDL/HDL (test cod e = 2238) 1.23 RATIO Delfino OrtaCBC W/AUTO [id number] 00:00:00* Test Item Value Reference Range Interpretation [...] code = 1016) (NOTE) Delfino OrtaCOMPREHENSIVE METABOLIC [id number] 00:00:00* Test Item Value Reference Range Interpretation Comme nts GLUCOSE (test code = 2217) 88 MG/DL BUN (test code = 2208) 24 MG/DL CREATININE (test code = 2214) 0.94 MG/DL eGFR AMER. (test cod e = 08108) 80 ML/MIN/1.73 eGFR NON- AMER. (test code = 15934) 69 ML/MIN/1.73 CALC BUN/CREAT (test code = [...] code = 2219) 10 U/L Delfino OrtaLIPID [id number] 00:00:00* Test Item Value Reference Range Interpretation Comme nts CHOLESTEROL (test code = 2210) 211 MG/DL TRIGLYCERIDES (test code = 2232) 52 MG/DL HDL CHOLESTEROL (test code = 2220) 90 MG/DL CALC LDL CHOL (test code = 2237) 111 MG/DL RISK RATIO LDL/HDL (test cod e = 2238) 1.23 RATIO Delfino OrtaCBC W/AUTO [id number] 00:00:00* Test Item Value Reference Range Interpretation [...] code = 1016) (NOTE) Delfino OrtaCOMPREHENSIVE METABOLIC [id number] 00:00:00* Test Item Value Reference Range Interpretation Comme nts GLUCOSE (test code = 2217) 88 MG/DL BUN (test code = 2208) 24 MG/DL CREATININE (test code = 2214) 0.94 MG/DL eGFR AMER. (test cod e = 05853) 80 ML/MIN/1.73 eGFR NON- AMER. (test code = 43955) 69 ML/MIN/1.73 CALC BUN/CREAT (test code = [...] code = 2219) 10 U/L Delfino OrtaLIPID [id number] 00:00:00* Test Item Value Reference Range Interpretation Comme nts CHOLESTEROL (test code = 2210) 211 MG/DL TRIGLYCERIDES (test code = 2232) 52 MG/DL HDL CHOLESTEROL (test code = 2220) 90 MG/DL CALC LDL CHOL (test code = 2237) 111 MG/DL RISK RATIO LDL/HDL (test cod e = 2238) 1.23 RATIO Delfino OrtaCBC W/AUTO [id number] 00:00:00* Test Item Value Reference Range Interpretation [...] code = 1016) (NOTE) Delfino OrtaCOMPREHENSIVE METABOLIC [id number] 00:00:00* Test Item Value Reference Range Interpretation Comme nts GLUCOSE (test code = 2217) 88 MG/DL BUN (test code = 2208) 24 MG/DL CREATININE (test code = 2214) 0.94 MG/DL eGFR AMER. (test cod e = 09204) 80 ML/MIN/1.73 eGFR NON- AMER. (test code = 62254) 69 ML/MIN/1.73 CALC BUN/CREAT (test code = [...] = 2219) 10 U/L Delfino Schumacher YouLIPID [id number] 00:00:00* Test Item Value Reference Range Interpretation Comme nts CHOLESTEROL (test code = 2210) 211 MG/DL TRIGLYCERIDES (test code = 2232) 52 MG/DL HDL CHOLESTEROL (test code = 2220) 90 MG/DL CALC LDL CHOL (test code = 2237) 111 MG/DL RISK RATIO LDL/HDL (test cod e = 2238) 1.23 RATIO Delfino Schumacher YouCBC W/AUTO [id number] 00:00:00* Test Item Value Reference Range Interpretation [...] = 1016) (NOTE) Delfino F YouCOMPREHENSIVE METABOLIC [id number] 00:00:00* Test Item Value Reference Range Interpretation Comme nts GLUCOSE (test code = 2217) 88 MG/DL BUN (test code = 2208) 24 MG/DL CREATININE (test code = 2214) 0.94 MG/DL eGFR AMER. (test cod e = 56690) 80 ML/MIN/1.73 eGFR NON- AMER. (test code = 12986) 69 ML/MIN/1.73 CALC BUN/CREAT (test code = [...] code = 2219) 10 U/L Delfino OrtaLIPID [id number] 00:00:00* Test Item Value Reference Range Interpretation Comme nts CHOLESTEROL (test code = 2210) 211 MG/DL TRIGLYCERIDES (test code = 2232) 52 MG/DL HDL CHOLESTEROL (test code = 2220) 90 MG/DL CALC LDL CHOL (test code = 2237) 111 MG/DL RISK RATIO LDL/HDL (test cod e = 2238) 1.23 RATIO Delfino OrtaCBC W/AUTO [id number] 00:00:00* Test Item Value Reference Range Interpretation [...] code = 1016) (NOTE) Delfino OrtaCOMPREHENSIVE METABOLIC [id number] 00:00:00* Test Item Value Reference Range Interpretation Comme nts GLUCOSE (test code = 2217) 88 MG/DL BUN (test code = 2208) 24 MG/DL CREATININE (test code = 2214) 0.94 MG/DL eGFR AMER. (test cod e = 89372) 80 ML/MIN/1.73 eGFR NON- AMER. (test code = 93397) 69 ML/MIN/1.73 CALC BUN/CREAT (test code = [...] code = 2219) 10 U/L Delfino OrtaLIPID [id number] 00:00:00* Test Item Value Reference Range Interpretation Comme nts CHOLESTEROL (test code = 2210) 211 MG/DL TRIGLYCERIDES (test code = 2232) 52 MG/DL HDL CHOLESTEROL (test code = 2220) 90 MG/DL CALC LDL CHOL (test code = 2237) 111 MG/DL RISK RATIO LDL/HDL (test cod e = 2238) 1.23 RATIO Delfino OrtaCBC W/AUTO [id number] 00:00:00* Test Item Value Reference Range Interpretation [...] = 1016) (NOTE) Delfino F YouCOMPREHENSIVE METABOLIC [id number] 00:00:00* Test Item Value Reference Range Interpretation Comme nts GLUCOSE (test code = 2217) 88 MG/DL BUN (test code = 2208) 24 MG/DL CREATININE (test code = 2214) 0.94 MG/DL eGFR AMER. (test cod e = 22792) 80 ML/MIN/1.73 eGFR NON- AMER. (test code = 40479) 69 ML/MIN/1.73 CALC BUN/CREAT (test code = [...] code = 2219) 10 U/L Delfino OrtaLIPID [id number] 00:00:00* Test Item Value Reference Range Interpretation Comme nts CHOLESTEROL (test code = 2210) 211 MG/DL TRIGLYCERIDES (test code = 2232) 52 MG/DL HDL CHOLESTEROL (test code = 2220) 90 MG/DL CALC LDL CHOL (test code = 2237) 111 MG/DL RISK RATIO LDL/HDL (test cod e = 2238) 1.23 RATIO Dlefino OrtaCBC W/AUTO [id number] 00:00:00* Test Item Value Reference Range Interpretation [...] code = 1016) (NOTE) Delfino OrtaCOMPREHENSIVE METABOLIC [id number] 00:00:00* Test Item Value Reference Range Interpretation Comme nts GLUCOSE (test code = 2217) 88 MG/DL BUN (test code = 2208) 24 MG/DL CREATININE (test code = 2214) 0.94 MG/DL eGFR AMER. (test cod e = 17548) 80 ML/MIN/1.73 eGFR NON- AMER. (test code = 57016) 69 ML/MIN/1.73 CALC BUN/CREAT (test code = [...] code = 2219) 10 U/L Delfino OrtaLIPID [id number] 00:00:00* Test Item Value Reference Range Interpretation Comme nts CHOLESTEROL (test code = 2210) 211 MG/DL TRIGLYCERIDES (test code = 2232) 52 MG/DL HDL CHOLESTEROL (test code = 2220) 90 MG/DL CALC LDL CHOL (test code = 2237) 111 MG/DL RISK RATIO LDL/HDL (test cod e = 2238) 1.23 RATIO Delfino Schumacher YouCBC W/AUTO [id number] 00:00:00* Test Item Value Reference Range Interpretation [...] = 1016) (NOTE) Delfino Schumacher YouCOMPREHENSIVE METABOLIC [id number] 00:00:00* Test Item Value Reference Range Interpretation Comme nts GLUCOSE (test code = 2217) 88 MG/DL BUN (test code = 2208) 24 MG/DL CREATININE (test code = 2214) 0.94 MG/DL eGFR AMER. (test cod e = 33510) 80 ML/MIN/1.73 eGFR NON- AMER. (test code = 92250) 69 ML/MIN/1.73 CALC BUN/CREAT (test code = [...] code = 2219) 10 U/L Delfino OrtaLIPID [id number] 00:00:00* Test Item Value Reference Range Interpretation Comme nts CHOLESTEROL (test code = 2210) 211 MG/DL TRIGLYCERIDES (test code = 2232) 52 MG/DL HDL CHOLESTEROL (test code = 2220) 90 MG/DL CALC LDL CHOL (test code = 2237) 111 MG/DL RISK RATIO LDL/HDL (test cod e = 2238) 1.23 RATIO Delfino OrtaCBC W/AUTO [id number] 00:00:00* Test Item Value Reference Range Interpretation [...] code = 1016) (NOTE) Delfino OrtaCOMPREHENSIVE METABOLIC [id number] 00:00:00* Test Item Value Reference Range Interpretation Comme nts GLUCOSE (test code = 2217) 88 MG/DL BUN (test code = 2208) 24 MG/DL CREATININE (test code = 2214) 0.94 MG/DL eGFR AMER. (test cod e = 44328) 80 ML/MIN/1.73 eGFR NON- AMER. (test code = 18250) 69 ML/MIN/1.73 CALC BUN/CREAT (test code = [...] code = 2219) 10 U/L Delfino OrtaLIPID [id number] 00:00:00* Test Item Value Reference Range Interpretation Comme nts CHOLESTEROL (test code = 2210) 211 MG/DL TRIGLYCERIDES (test code = 2232) 52 MG/DL HDL CHOLESTEROL (test code = 2220) 90 MG/DL CALC LDL CHOL (test code = 2237) 111 MG/DL RISK RATIO LDL/HDL (test cod e = 2238) 1.23 RATIO Delfino OrtaCBC W/AUTO [id number] 00:00:00* Test Item Value Reference Range Interpretation [...] code = 1016) (NOTE) Delfino OrtaCOMPREHENSIVE METABOLIC [id number] 00:00:00* Test Item Value Reference Range Interpretation Comme nts GLUCOSE (test code = 2217) 88 MG/DL BUN (test code = 2208) 24 MG/DL CREATININE (test code = 2214) 0.94 MG/DL eGFR AMER. (test cod e = 94021) 80 ML/MIN/1.73 eGFR NON- AMER. (test code = 53453) 69 ML/MIN/1.73 CALC BUN/CREAT (test code = [...] code = 2219) 10 U/L Delfino OrtaLIPID [id number] 00:00:00* Test Item Value Reference Range Interpretation Comme nts CHOLESTEROL (test code = 2210) 211 MG/DL TRIGLYCERIDES (test code = 2232) 52 MG/DL HDL CHOLESTEROL (test code = 2220) 90 MG/DL CALC LDL CHOL (test code = 2237) 111 MG/DL RISK RATIO LDL/HDL (test cod e = 2238) 1.23 RATIO Delfino OrtaCBC W/AUTO [id number] 00:00:00* Test Item Value Reference Range Interpretation [...] code = 1016) (NOTE) Delfino OrtaCOMPREHENSIVE METABOLIC [id number] 00:00:00* Test Item Value Reference Range Interpretation Comme nts GLUCOSE (test code = 2217) 88 MG/DL BUN (test code = 2208) 24 MG/DL CREATININE (test code = 2214) 0.94 MG/DL eGFR AMER. (test cod e = 34250) 80 ML/MIN/1.73 eGFR NON- AMER. (test code = 25884) 69 ML/MIN/1.73 CALC BUN/CREAT (test code = [...] code = 2219) 10 U/L Delfino Schumacher BaileyLIPID [id number] 00:00:00* Test Item Value Reference Range Interpretation Comme nts CHOLESTEROL (test code = 2210) 211 MG/DL TRIGLYCERIDES (test code = 2232) 52 MG/DL HDL CHOLESTEROL (test code = 2220) 90 MG/DL CALC LDL CHOL (test code = 2237) 111 MG/DL RISK RATIO LDL/HDL (test cod e = 2238) 1.23 RATIO Delfino Schumacher BaileyCBC W/AUTO [id number] 00:00:00* Test Item Value Reference Range Interpretation [...] (test code = 1016) (NOTE) [facility] [id number] 00:00:00* Test Item Value Reference Range Interpretation [...] code = 1016) (NOTE) Delfino OrtaCOMPREHENSIVE METABOLIC [id number] 00:00:00* Test Item Value Reference Range Interpretation Comme nts GLUCOSE (test code = 2217) 88 MG/DL BUN (test code = 2208) 24 MG/DL CREATININE (test code = 2214) 0.94 MG/DL eGFR AMER. (test cod e = 64328) 80 ML/MIN/1.73 eGFR NON- AMER. (test code = 05499) 69 ML/MIN/1.73 CALC BUN/CREAT (test code = [...] code = 2219) 10 U/L Delfino OrtaLIPID [id number] 00:00:00* Test Item Value Reference Range Interpretation Comme nts CHOLESTEROL (test code = 2210) 211 MG/DL TRIGLYCERIDES (test code = 2232) 52 MG/DL HDL CHOLESTEROL (test code = 2220) 90 MG/DL CALC LDL CHOL (test code = 2237) 111 MG/DL RISK RATIO LDL/HDL (test cod e = 2238) 1.23 RATIO Delfino OrtaCBC W/AUTO [id number] 00:00:00* Test Item Value Reference Range Interpretation [...] code = 1016) (NOTE) Delfino OrtaCOMPREHENSIVE METABOLIC [id number] 00:00:00* Test Item Value Reference Range Interpretation Comme nts GLUCOSE (test code = 2217) 88 MG/DL BUN (test code = 2208) 24 MG/DL CREATININE (test code = 2214) 0.94 MG/DL eGFR AMER. (test cod e = 55603) 80 ML/MIN/1.73 eGFR NON- AMER. (test code = 97772) 69 ML/MIN/1.73 CALC BUN/CREAT (test code = [...] code = 2219) 10 U/L Delfino OrtaLIPID [id number] 00:00:00* Test Item Value Reference Range Interpretation Comme nts CHOLESTEROL (test code = 2210) 211 MG/DL TRIGLYCERIDES (test code = 2232) 52 MG/DL HDL CHOLESTEROL (test code = 2220) 90 MG/DL CALC LDL CHOL (test code = 2237) 111 MG/DL RISK RATIO LDL/HDL (test cod e = 2238) 1.23 RATIO Delfino OrtaCBC W/AUTO [id number] 00:00:00* Test Item Value Reference Range Interpretation [...] COMMENTS (test code = 1016) (NOTE) Delfino OrtaURIC [id number] 00:00:00* Test Item Value Reference Range Interpretation Comme nts URIC ACID (test code = 2233) 7.5 MG/DL Delfino OrtaVITAMIN D, 25 [id number] 00:00:00* Test Item Value Reference Range Interpretation Comme nts VITAMIN D, 25 OH (test code = 4958) 36 NG/ML Delfino OrtaURIC [id number] 00:00:00* Test Item Value Reference Range Interpretation Comme nts URIC ACID (test code = 2233) 7.5 MG/DL Delfino Schumacher AustinVITAMIN D, 25 [id number] 00:00:00* Test Item Value Reference Range Interpretation Comme nts VITAMIN D, 25 OH (test code = 4958) 36 NG/ML Delfino Schumacher AustinURIC [id number] 00:00:00* Test Item Value Reference Range Interpretation Comme nts URIC ACID (test code = 2233) 7.5 MG/DL Delfino Schumacher AustinVITAMIN D, 25 [id number] 00:00:00* Test Item Value Reference Range Interpretation Comme nts VITAMIN D, 25 OH (test code = 4958) 36 NG/ML Delfino Schumacher AustinURIC [id number] 00:00:00* Test Item Value Reference Range Interpretation Comme nts URIC ACID (test code = 2233) 7.5 MG/DL URIC [id number] 00:00:00* Test Item Value Reference Range Interpretation Comme nts URIC ACID (test code = 2233) 7.5 MG/DL Delfino Schumacher AustinVITAMIN D, 25 [id number] 00:00:00* Test Item Value Reference Range Interpretation Comme nts VITAMIN D, 25 OH (test code = 4958) 36 NG/ML Delfino Schumacher AustinVITAMIN D, 25 [id number] 00:00:00* Test Item Value Reference Range Interpretation Comme nts VITAMIN D, 25 OH (test code = 4958) 36 NG/ML URIC [id number] 00:00:00* Test Item Value Reference Range Interpretation Comme nts URIC ACID (test code = 2233) 7.5 MG/DL Delfino Schumacher AustinURIC [id number] 00:00:00* Test Item Value Reference Range Interpretation Comme nts URIC ACID (test code = 2233) 7.5 MG/DL VITAMIN D, 25 [id number] 00:00:00* Test Item Value Reference Range Interpretation Comme nts VITAMIN D, 25 OH (test code = 4958) 36 NG/ML Delfino Schumacher AustinVITAMIN D, 25 [id number] 00:00:00* Test Item Value Reference Range Interpretation Comme nts VITAMIN D, 25 OH (test code = 4958) 36 NG/ML URIC [id number] 00:00:00* Test Item Value Reference Range Interpretation Comme nts URIC ACID (test code = 2233) 7.5 MG/DL Delfino Schumacher AustinURIC [id number] 00:00:00* Test Item Value Reference Range Interpretation Comme nts URIC ACID (test code = 2233) 7.5 MG/DL VITAMIN D, 25 [id number] 00:00:00* Test Item Value Reference Range Interpretation Comme nts VITAMIN D, 25 OH (test code = 4958) 36 NG/ML VITAMIN D, 25 [id number] 00:00:00* Test Item Value Reference Range Interpretation Comme nts VITAMIN D, 25 OH (test code = 4958) 36 NG/ML Delfino Schumacher AustinURIC [id number] 00:00:00* Test Item Value Reference Range Interpretation Comme nts URIC ACID (test code = 2233) 7.5 MG/DL URIC [id number] 00:00:00* Test Item Value Reference Range Interpretation Comme nts URIC ACID (test code = 2233) 7.5 MG/DL Delfino Schumacher AustinVITAMIN D, 25 [id number] 00:00:00* Test Item Value Reference Range Interpretation Comme nts VITAMIN D, 25 OH (test code = 4958) 36 NG/ML VITAMIN D, 25 [id number] 00:00:00* Test Item Value Reference Range Interpretation Comme nts VITAMIN D, 25 OH (test code = 4958) 36 NG/ML Delfino Schumacher [place] [id number] 00:00:00* Test Item Value Reference Range Interpretation Comme nts URIC ACID (test code = 2233) 7.5 MG/DL Delfino Schumacher [place], 25 [id number] 00:00:00* Test Item Value Reference Range Interpretation Comme nts VITAMIN D, 25 OH (test code = 4958) 36 NG/ML Delfino Schumacher [facility] [id number] 00:00:00* Test Item Value Reference Range Interpretation Comme nts URIC ACID (test code = 2233) 7.5 MG/DL Delfino Schumacher [place], 25 [id number] 00:00:00* Test Item Value Reference Range Interpretation Comme nts VITAMIN D, 25 OH (test code = 4958) 36 NG/ML Delfino Schumacher [place] [id number] 00:00:00* Test Item Value Reference Range Interpretation Comme nts URIC ACID (test code = 2233) 7.5 MG/DL Delfino Schumacher [place], 25 [id number] 00:00:00* Test Item Value Reference Range Interpretation Comme nts VITAMIN D, 25 OH (test code = 4958) 36 NG/ML Delfino Schumacher [facility] [id number] 00:00:00* Test Item Value Reference Range Interpretation Comme nts URIC ACID (test code = 2233) 7.5 MG/DL Delfino Schumacher [place], 25 [id number] 00:00:00* Test Item Value Reference Range Interpretation Comme nts VITAMIN D, 25 OH (test code = 4958) 36 NG/ML Delfino Schumacher [facility] [id number] 00:00:00* Test Item Value Reference Range Interpretation Comme nts URIC ACID (test code = 2233) 7.5 MG/DL Delfino Schumacher [place], 25 [id number] 00:00:00* Test Item Value Reference Range Interpretation Comme nts VITAMIN D, 25 OH (test code = 4958) 36 NG/ML Delfino Schumacher [facility] [id number] 00:00:00* Test Item Value Reference Range Interpretation Comme nts URIC ACID (test code = 2233) 7.5 MG/DL Delfino Schumacher [place], 25 [id number] 00:00:00* Test Item Value Reference Range Interpretation Comme nts VITAMIN D, 25 OH (test code = 4958) 36 NG/ML Delfino Schumacher [facility] [id number] 00:00:00* Test Item Value Reference Range Interpretation Comme nts URIC ACID (test code = 2233) 7.5 MG/DL Delfino Scuhmacher [place], 25 [id number] 00:00:00* Test Item Value Reference Range Interpretation Comme nts VITAMIN D, 25 OH (test code = 4958) 36 NG/ML Delfino Schumacher AustinURIC [id number] 00:00:00* Test Item Value Reference Range Interpretation Comme nts URIC ACID (test code = 2233) 7.5 MG/DL Delfino Schumacher AustinVITAMIN D, 25 [id number] 00:00:00* Test Item Value Reference Range Interpretation Comme nts VITAMIN D, 25 OH (test code = 4958) 36 NG/ML Delfino Schumacher [facility]URIC [id number] 00:00:00* Test Item Value Reference Range Interpretation Comme nts URIC ACID (test code = 2233) 7.5 MG/DL Delfino Schumacher AustinVITAMIN D, 25 [id number] 00:00:00* Test Item Value Reference Range Interpretation Comme nts VITAMIN D, 25 OH (test code = 4958) 36 NG/ML Delfino Schumacher [facility]URIC [id number] 00:00:00* Test Item Value Reference Range Interpretation Comme nts URIC ACID (test code = 2233) 7.5 MG/DL Delfino Schumacher AustinVITAMIN D, 25 [id number] 00:00:00* Test Item Value Reference Range Interpretation Comme nts VITAMIN D, 25 OH (test code = 4958) 36 NG/ML Delfino Schumacher [facility] [id number] 00:00:00* Test Item Value Reference Range Interpretation Comme nts URIC ACID (test code = 2233) 7.5 MG/DL Delfino Schumacher AustinVITAMIN D, 25 [id number] 00:00:00* Test Item Value Reference Range Interpretation Comme nts VITAMIN D, 25 OH (test code = 4958) 36 NG/ML Delfino Schumacher [facility] [id number] 00:00:00* Test Item Value Reference Range Interpretation Comme nts URIC ACID (test code = 2233) 7.5 MG/DL Delfino Schumacher [facility] [id number] 00:00:00* Test Item Value Reference Range Interpretation Comme nts URIC ACID (test code = 2233) 7.5 MG/DL Delfino Schumacher AustinVITAMIN D, 25 [id number] 00:00:00* Test Item Value Reference Range Interpretation Comme nts VITAMIN D, 25 OH (test code = 4958) 36 NG/ML Delfino Schumacher [facility] [id number] 00:00:00* Test Item Value Reference Range Interpretation Comme nts URIC ACID (test code = 2233) 7.5 MG/DL Delfino Schumacher AustinVITAMIN D, 25 [id number] 00:00:00* Test Item Value Reference Range Interpretation Comme nts VITAMIN D, 25 OH (test code = 4958) 36 NG/ML Delfino Schumacher [facility] [id number] 00:00:00* Test Item Value Reference Range Interpretation Comme nts URIC ACID (test code = 2233) 7.5 MG/DL Delfino Schumacher AustinVITAMIN D, 25 [id number] 00:00:00* Test Item Value Reference Range Interpretation Comme nts VITAMIN D, 25 OH (test code = 4958) 36 NG/ML Delfino Schumacher AustinVITAMIN D, 25 [id number] 00:00:00* Test Item Value Reference Range Interpretation Comme nts VITAMIN D, 25 OH (test code = 4958) 36 NG/ML Delfino Schumacher [facility] [id number] 00:00:00* Test Item Value Reference Range Interpretation Comme nts URIC ACID (test code = 2233) 7.5 MG/DL Delfino OrtaVITAMIN D, 25 [id number] 00:00:00* Test Item Value Reference Range Interpretation Comme nts VITAMIN D, 25 OH (test code = 4958) 36 NG/ML Delfino Schumacher AustinSEDIMENTATION [id number] 00:00:00* Test Item Value Reference Range Interpretation Comme nts SEDIMENTATION RATE (test cod e = 1017) 117 MM/HOUR Delfino Schumacher AustinC-REACTIVE [id number] 00:00:00* Test Item Value Reference Range Interpretation Comme nts C-REACTIVE PROTEIN (test cod e = 3513) 0.3 MG/DL Delfino Schumacher AustinSEDIMENTATION [id number] 00:00:00* Test Item Value Reference Range Interpretation Comme nts SEDIMENTATION RATE (test cod e = 1017) 117 MM/HOUR Delfino Schumacher AustinRHEUMATOID FACTOR, [id number] 00:00:00* Test Item Value Reference Range Interpretation Comme nts RHEUMATOID FACTOR, QUANT (te st code = 3502) <10 IU/ML Delfino F AustinSEDIMENTATION [id number] 00:00:00* Test Item Value Reference Range Interpretation Comme nts SEDIMENTATION RATE (test cod e = 1017) 117 MM/HOUR Delfino Schumacher AustinC-REACTIVE [id number] 00:00:00* Test Item Value Reference Range Interpretation Comme nts C-REACTIVE PROTEIN (test cod e = 3513) 0.3 MG/DL Delfino Schumacher AustinRHEUMATOID FACTOR, [id number] 00:00:00* Test Item Value Reference Range Interpretation Comme nts RHEUMATOID FACTOR, QUANT (te st code = 3502) <10 IU/ML Delfino F AustinSEDIMENTATION [id number] 00:00:00* Test Item Value Reference Range Interpretation Comme nts SEDIMENTATION RATE (test cod e = 1017) 117 MM/HOUR Delfino F AustinC-REACTIVE [id number] 00:00:00* Test Item Value Reference Range Interpretation Comme nts C-REACTIVE PROTEIN (test cod e = 3513) 0.3 MG/DL Delfino F AustinRHEUMATOID FACTOR, [id number] 00:00:00* Test Item Value Reference Range Interpretation Comme nts RHEUMATOID FACTOR, QUANT (te st code = 3502) <10 IU/ML Delfino F AustinSEDIMENTATION [id number] 00:00:00* Test Item Value Reference Range Interpretation Comme nts SEDIMENTATION RATE (test cod e = 1017) 117 MM/HOUR Delfino F AustinC-REACTIVE [id number] 00:00:00* Test Item Value Reference Range Interpretation Comme nts C-REACTIVE PROTEIN (test cod e = 3513) 0.3 MG/DL Delfino F AustinC-REACTIVE [id number] 00:00:00* Test Item Value Reference Range Interpretation Comme nts C-REACTIVE PROTEIN (test cod e = 3513) 0.3 MG/DL RHEUMATOID FACTOR, [id number] 00:00:00* Test Item Value Reference Range Interpretation Comme nts RHEUMATOID FACTOR, QUANT (te st code = 3502) <10 IU/ML Delfino F AustinRHEUMATOID FACTOR, [id number] 00:00:00* Test Item Value Reference Range Interpretation Comme nts RHEUMATOID FACTOR, QUANT (te st code = 3502) <10 IU/ML SEDIMENTATION [id number] 00:00:00* Test Item Value Reference Range Interpretation Comme nts SEDIMENTATION RATE (test cod e = 1017) 117 MM/HOUR Delfino F AustinSEDIMENTATION [id number] 00:00:00* Test Item Value Reference Range Interpretation Comme nts SEDIMENTATION RATE (test cod e = 1017) 117 MM/HOUR C-REACTIVE [id number] 00:00:00* Test Item Value Reference Range Interpretation Comme nts C-REACTIVE PROTEIN (test cod e = 3513) 0.3 MG/DL Delfino F AustinC-REACTIVE [id number] 00:00:00* Test Item Value Reference Range Interpretation Comme nts C-REACTIVE PROTEIN (test cod e = 3513) 0.3 MG/DL RHEUMATOID FACTOR, [id number] 00:00:00* Test Item Value Reference Range Interpretation Comme nts RHEUMATOID FACTOR, QUANT (te st code = 3502) <10 IU/ML Delfino F AustinSEDIMENTATION [id number] 00:00:00* Test Item Value Reference Range Interpretation Comme nts SEDIMENTATION RATE (test cod e = 1017) 117 MM/HOUR Delfino F AustinRHEUMATOID FACTOR, [id number] 00:00:00* Test Item Value Reference Range Interpretation Comme nts RHEUMATOID FACTOR, QUANT (te st code = 3502) <10 IU/ML SEDIMENTATION [id number] 00:00:00* Test Item Value Reference Range Interpretation Comme nts SEDIMENTATION RATE (test cod e = 1017) 117 MM/HOUR C-REACTIVE [id number] 00:00:00* Test Item Value Reference Range Interpretation Comme nts C-REACTIVE PROTEIN (test cod e = 3513) 0.3 MG/DL Delfino F AustinC-REACTIVE [id number] 00:00:00* Test Item Value Reference Range Interpretation Comme nts C-REACTIVE PROTEIN (test cod e = 3513) 0.3 MG/DL RHEUMATOID FACTOR, [id number] 00:00:00* Test Item Value Reference Range Interpretation Comme nts RHEUMATOID FACTOR, QUANT (te st code = 3502) <10 IU/ML Delfino F AustinRHEUMATOID FACTOR, [id number] 00:00:00* Test Item Value Reference Range Interpretation Comme nts RHEUMATOID FACTOR, QUANT (te st code = 3502) <10 IU/ML SEDIMENTATION [id number] 00:00:00* Test Item Value Reference Range Interpretation Comme nts SEDIMENTATION RATE (test cod e = 1017) 117 MM/HOUR SEDIMENTATION [id number] 00:00:00* Test Item Value Reference Range Interpretation Comme nts SEDIMENTATION RATE (test cod e = 1017) 117 MM/HOUR Delfino F AustinC-REACTIVE [id number] 00:00:00* Test Item Value Reference Range Interpretation Comme nts C-REACTIVE PROTEIN (test cod e = 3513) 0.3 MG/DL C-REACTIVE [id number] 00:00:00* Test Item Value Reference Range Interpretation Comme nts C-REACTIVE PROTEIN (test cod e = 3513) 0.3 MG/DL Delfino F AustinRHEUMATOID FACTOR, [id number] 00:00:00* Test Item Value Reference Range Interpretation Comme nts RHEUMATOID FACTOR, QUANT (te st code = 3502) <10 IU/ML SEDIMENTATION [id number] 00:00:00* Test Item Value Reference Range Interpretation Comme nts SEDIMENTATION RATE (test cod e = 1017) 117 MM/HOUR RHEUMATOID FACTOR, [id number] 00:00:00* Test Item Value Reference Range Interpretation Comme nts RHEUMATOID FACTOR, QUANT (te st code = 3502) <10 IU/ML Delfino F AustinSEDIMENTATION [id number] 00:00:00* Test Item Value Reference Range Interpretation Comme nts SEDIMENTATION RATE (test cod e = 1017) 117 MM/HOUR Delfino F AustinC-REACTIVE [id number] 00:00:00* Test Item Value Reference Range Interpretation Comme nts C-REACTIVE PROTEIN (test cod e = 3513) 0.3 MG/DL Delfino F AustinRHEUMATOID FACTOR, [id number] 00:00:00* Test Item Value Reference Range Interpretation Comme nts RHEUMATOID FACTOR, QUANT (te st code = 3502) <10 IU/ML Delfino F AustinSEDIMENTATION [id number] 00:00:00* Test Item Value Reference Range Interpretation Comme nts SEDIMENTATION RATE (test cod e = 1017) 117 MM/HOUR Delfino F AustinC-REACTIVE [id number] 00:00:00* Test Item Value Reference Range Interpretation Comme nts C-REACTIVE PROTEIN (test cod e = 3513) 0.3 MG/DL Delfino F AustinRHEUMATOID FACTOR, [id number] 00:00:00* Test Item Value Reference Range Interpretation Comme nts RHEUMATOID FACTOR, QUANT (te st code = 3502) <10 IU/ML Delfino F AustinSEDIMENTATION [id number] 00:00:00* Test Item Value Reference Range Interpretation Comme nts SEDIMENTATION RATE (test cod e = 1017) 117 MM/HOUR Delfino F AustinC-REACTIVE [id number] 00:00:00* Test Item Value Reference Range Interpretation Comme nts C-REACTIVE PROTEIN (test cod e = 3513) 0.3 MG/DL Delfino F AustinRHEUMATOID FACTOR, [id number] 00:00:00* Test Item Value Reference Range Interpretation Comme nts RHEUMATOID FACTOR, QUANT (te st code = 3502) <10 IU/ML Delfino F AustinSEDIMENTATION [id number] 00:00:00* Test Item Value Reference Range Interpretation Comme nts SEDIMENTATION RATE (test cod e = 1017) 117 MM/HOUR Delfino F AustinC-REACTIVE [id number] 00:00:00* Test Item Value Reference Range Interpretation Comme nts C-REACTIVE PROTEIN (test cod e = 3513) 0.3 MG/DL Delfino F AustinRHEUMATOID FACTOR, [id number] 00:00:00* Test Item Value Reference Range Interpretation Comme nts RHEUMATOID FACTOR, QUANT (te st code = 3502) <10 IU/ML Delfino F AustinSEDIMENTATION [id number] 00:00:00* Test Item Value Reference Range Interpretation Comme nts SEDIMENTATION RATE (test cod e = 1017) 117 MM/HOUR Delfino F AustinC-REACTIVE [id number] 00:00:00* Test Item Value Reference Range Interpretation Comme nts C-REACTIVE PROTEIN (test cod e = 3513) 0.3 MG/DL Delfino F AustinRHEUMATOID FACTOR, [id number] 00:00:00* Test Item Value Reference Range Interpretation Comme nts RHEUMATOID FACTOR, QUANT (te st code = 3502) <10 IU/ML Delfino F AustinSEDIMENTATION [id number] 00:00:00* Test Item Value Reference Range Interpretation Comme nts SEDIMENTATION RATE (test cod e = 1017) 117 MM/HOUR Delfino F AustinC-REACTIVE [id number] 00:00:00* Test Item Value Reference Range Interpretation Comme nts C-REACTIVE PROTEIN (test cod e = 3513) 0.3 MG/DL Delfino F AustinRHEUMATOID FACTOR, [id number] 00:00:00* Test Item Value Reference Range Interpretation Comme nts RHEUMATOID FACTOR, QUANT (te st code = 3502) <10 IU/ML Delfino F AustinSEDIMENTATION [id number] 00:00:00* Test Item Value Reference Range Interpretation Comme nts SEDIMENTATION RATE (test cod e = 1017) 117 MM/HOUR Delfino F AustinC-REACTIVE [id number] 00:00:00* Test Item Value Reference Range Interpretation Comme nts C-REACTIVE PROTEIN (test cod e = 3513) 0.3 MG/DL Delfino F AustinRHEUMATOID FACTOR, [id number] 00:00:00* Test Item Value Reference Range Interpretation Comme nts RHEUMATOID FACTOR, QUANT (te st code = 3502) <10 IU/ML Delfino F AustinSEDIMENTATION [id number] 00:00:00* Test Item Value Reference Range Interpretation Comme nts SEDIMENTATION RATE (test cod e = 1017) 117 MM/HOUR Delfino F AustinC-REACTIVE [id number] 00:00:00* Test Item Value Reference Range Interpretation Comme nts C-REACTIVE PROTEIN (test cod e = 3513) 0.3 MG/DL Delfino F AustinRHEUMATOID FACTOR, [id number] 00:00:00* Test Item Value Reference Range Interpretation Comme nts RHEUMATOID FACTOR, QUANT (te st code = 3502) <10 IU/ML Delfino F AustinSEDIMENTATION [id number] 00:00:00* Test Item Value Reference Range Interpretation Comme nts SEDIMENTATION RATE (test cod e = 1017) 117 MM/HOUR Delfino F AustinC-REACTIVE [id number] 00:00:00* Test Item Value Reference Range Interpretation Comme nts C-REACTIVE PROTEIN (test cod e = 3513) 0.3 MG/DL Delfino F AustinRHEUMATOID FACTOR, [id number] 00:00:00* Test Item Value Reference Range Interpretation Comme nts RHEUMATOID FACTOR, QUANT (te st code = 3502) <10 IU/ML Delfino F AustinSEDIMENTATION [id number] 00:00:00* Test Item Value Reference Range Interpretation Comme nts SEDIMENTATION RATE (test cod e = 1017) 117 MM/HOUR Delfino F AustinC-REACTIVE [id number] 00:00:00* Test Item Value Reference Range Interpretation Comme nts C-REACTIVE PROTEIN (test cod e = 3513) 0.3 MG/DL Delfino F AustinRHEUMATOID FACTOR, [id number] 00:00:00* Test Item Value Reference Range Interpretation Comme nts RHEUMATOID FACTOR, QUANT (te st code = 3502) <10 IU/ML Delfino F AustinSEDIMENTATION [id number] 00:00:00* Test Item Value Reference Range Interpretation Comme nts SEDIMENTATION RATE (test cod e = 1017) 117 MM/HOUR Delfino F AustinC-REACTIVE [id number] 00:00:00* Test Item Value Reference Range Interpretation Comme nts C-REACTIVE PROTEIN (test cod e = 3513) 0.3 MG/DL Delfino F AustinRHEUMATOID FACTOR, [id number] 00:00:00* Test Item Value Reference Range Interpretation Comme nts RHEUMATOID FACTOR, QUANT (te st code = 3502) <10 IU/ML Delfino F AustinSEDIMENTATION [id number] 00:00:00* Test Item Value Reference Range Interpretation Comme nts SEDIMENTATION RATE (test cod e = 1017) 117 MM/HOUR Delfino F AustinC-REACTIVE [id number] 00:00:00* Test Item Value Reference Range Interpretation Comme nts C-REACTIVE PROTEIN (test cod e = 3513) 0.3 MG/DL Delfino F AustinRHEUMATOID FACTOR, [id number] 00:00:00* Test Item Value Reference Range Interpretation Comme nts RHEUMATOID FACTOR, QUANT (te st code = 3502) <10 IU/ML Delfino F AustinSEDIMENTATION [id number] 00:00:00* Test Item Value Reference Range Interpretation Comme nts SEDIMENTATION RATE (test cod e = 1017) 117 MM/HOUR Delfino F AustinC-REACTIVE [id number] 00:00:00* Test Item Value Reference Range Interpretation Comme nts C-REACTIVE PROTEIN (test cod e = 3513) 0.3 MG/DL Delfino F AustinRHEUMATOID FACTOR, [id number] 00:00:00* Test Item Value Reference Range Interpretation Comme nts RHEUMATOID FACTOR, QUANT (te st code = 3502) <10 IU/ML Delfino F AustinSEDIMENTATION [id number] 00:00:00* Test Item Value Reference Range Interpretation Comme nts SEDIMENTATION RATE (test cod e = 1017) 117 MM/HOUR Delfino OrtaC-REACTIVE [id number] 00:00:00* Test Item Value Reference Range Interpretation Comme nts C-REACTIVE PROTEIN (test cod e = 3513) 0.3 MG/DL Delfino F AustinC-REACTIVE [id number] 00:00:00* Test Item Value Reference Range Interpretation Comme nts C-REACTIVE PROTEIN (test cod e = 3513) 0.3 MG/DL Delfino Schumacher AustinRHEUMATOID FACTOR, [id number] 00:00:00* Test Item Value Reference Range Interpretation Comme nts RHEUMATOID FACTOR, QUANT (te st code = 3502) <10 IU/ML Delfino Schumacher AustinSEDIMENTATION [id number] 00:00:00* Test Item Value Reference Range Interpretation Comme nts SEDIMENTATION RATE (test cod e = 1017) 117 MM/HOUR Delfino Schumacher AustinRHEUMATOID FACTOR, [id number] 00:00:00* Test Item Value Reference Range Interpretation Comme nts RHEUMATOID FACTOR, QUANT (te st code = 3502) <10 IU/ML Delfino OrtaC-REACTIVE [id number] 00:00:00* Test Item Value Reference Range Interpretation Comme nts C-REACTIVE PROTEIN (test cod e = 3513) 0.3 MG/DL Delfino Schumacher AustinRHEUMATOID FACTOR, [id number] 00:00:00* Test Item Value Reference Range Interpretation Comme nts RHEUMATOID FACTOR, QUANT (te st code = 3502) <10 IU/ML Delfino F You Consult Notes Date/Time Note Provider Source 2023-05-19 10:11:14 Associated Order(s): CONSULT CARDIOLOGY [facility] Cardiology Consult PCP: Jt Saleh [facility] Date of Service: 05/19/2023 CHIEF COMPLAINT/reason for consult: Troponin elevation HISTORY OF PRESENT ILLNESS This is a 58 years old female with past medical history of HIV, hypertension, hyperlipidemia, possible CAD etc. She came to [facility] due to cough and dyspnea. She was found to have COPD exacerbation. Labs showed troponin elevation and TAIWO. Denies chest pain. No acute EKG changes. Echocardiogram showed hyperdynamic left ventricle with ejection fraction over 65%. Moderate aortic stenosis noted. PAST MEDICAL HISTORY Past Medical History: Diagnosis Date Coronary atherosclerosis of unspecified type of vessel, [place] or graft 02/11/2013 heart attack Genital warts [...] or Shortness of Breath. 8.5 g 0 kmkfcretf-fuafsocn-sncjbqe ala 50-200-25 mg tablet Take 1 tablet [...] injury) Aortic stenosis Coronary artery disease involving [place] coronary artery of [place] heart without angina pectoris COPD exacerbation-continue antibiotics, [...] statins. Continue metoprolol. 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 Possible CAD-she denies coronary intervention. Recommend to [...] further assistance. James Stacy MD, FACC, [employer]UST[employer] Software Security Consultant Division of Cardiovascular Medicine [facility] - Health History and Physical [...] or Shortness of Breath. 8.5 g 0 kazyyznki-lapseocm-ehvbadm ala 50-200-25 mg tablet Take 1 tablet [...] Coronary atherosclerosis of unspecified type of vessel, [place] or graft 02/11/2013 heart attack Genital warts [...] IV piggyback, 500 mg, IV Piggyback, Q24H ABXMata David, DO, Stopped at 05/16/23 165 cetirizine (ZYRTEC) [...] 5 mL, 5 mL, Intravenous, PRN, Anyi Munguia, RIDES SUPERVISOR [START ON 05/17/2023] sulfamethoxazole-trimethoprim (BACTRIM DS) 800-160 [...] Disposition: Admit to inpatient IM-INTERNAL MEDICINE STAFF [facility] - Health Notes Date/Time Note Provider Source [facility]2025-04-02 00:00:00 [facility]2025-03-27 00:00:00 [facility]2025-03-25 00:00:00 [facility]2025-02-27 00:00:00 [facility]2025-02-26 00:00:00 [facility]2025-01-27 00:00:00 [facility]2025-01-15 00:00:00 [facility]2024-12-27 00:00:00 [facility]2024-12-02 00:00:00 [facility]2024-11-20 00:00:00 [facility]2024-10-17 00:00:00 [facility]2024-10-08 00:00:00 [facility]2024-09-21 00:00:00 [facility]2024-08-28 00:00:00 [facility]2024-08-12 00:00:00 [facility]2024-07-30 00:00:00 [facility]2024-07-17 00:00:00 [facility]2024-07-11 00:00:00 [facility]2024-06-28 00:00:00 [facility]2024-06-12 00:00:00 [facility]2024-05-28 00:00:00 [facility]2024-04-23 00:00:00 Delfino Piper [facility]2024-04-10 08:57:37 TRANSITIONAL CARE MANAGEMENT ASSESSMENT 05/22/2023 Charito Quiñonez [id number] Charito Quiñonez is a 58 year old Black or female was admitted on 05/16/23 to [facility], [facility] MED SURG. She was discharged [...] mg twice daily No linked episodes TCM Dmn-cwfq-bw-face outreach documentation: CM made follow up call to patient post-discharge. Phone rings with no answer and no voicemail. Two attempts made to reach patient. Discharge Assessment Chart Assessed: 05/22/23 TCM Outreach Completed: 05/22/23 Future Appointments: [facility]4373-89-42 14:20:10 CM made follow up call to patient post-discharge. No answer and no voicemail. [facility] 15:49:35 Problem: Pain Goal: Control of pain [...] Adequate for discharge Pedro Pablo Rios [facility]Cxbymf3536-90-84 13:54:10 Problem: Pain Goal: Control of pain [...] Progressing as expected T Valeria Tyler [facility] HealthIaufla6535-05-24 23:51:17 Problem: Pain Goal: Control of pain [...] Adequate for discharge Outcome: Progressing as expected [facility] Marisela Bañuelos [facility] HealthIxpacp0870-90-03 12:43:53 Problem: Pain Goal: Control of pain [...] Adequate for discharge Outcome: Progressing as expected [place] [address]-04-06 13:44:06 Problem: Pain Goal: Control of pain [...] Adequate for discharge Outcome: Progressing as expected [place] [address]-04-06 06:26:57 Problem: Pain Goal: Control of pain [...] Adequate for discharge Outcome: Progressing as expected [place] [address]-04-06 01:04:[address] Rosario about pt having generalized wheezing and would benefit from IV steroids, waiting for response. Will continue to monitor. [facility] Argentina Chambers [facility] HealthOgxupf8636-79-65 17:16:46 Problem: Pain Goal: Control of pain [...] Molly Pond RN Outcome: Progressing as expected . [facility] - [id number] 21:20:00 Problem: Pain Goal: Control of pain [...] discharge Outcome: Progressing as expected Hanny Moran [place] [id number] 16:51:01 Problem: Pain Goal: Control of pain [...] Adequate for discharge Outcome: Progressing as expected [place] [id number] 15:24:48 Report given to HALLE Barnespaint stockman Audrey Hitchcock [place] [address]-04-04 12:06:08 Patient states that she feels short of breath. Fortino Morales [place] [id number] 12:04:19 Patients states "I have a cold, I have a cough and it hurts in my back up to my head. And I am chaffed between my legs. I need some antibiotics." Patients respirations are labored with accessory muscle usage, oxygen saturation 82% on room air. [place] [address]-02-07 12:34:58 PT D/C home. GCS15, VS stable, no ataxia noted. Given two prescriptions and D/C paperwork. S/S relieved at this time. Pt ambulatory at time of discharge. Pt educated on leg pain, med usage, follow up care, s/s worsening condition. Pt verbalized understanding. AGE LINE RELIEF OPERATOR Susan Valdez [facility] HealthJqhgti7157-49-37 10:40:01 Patient here for pain in the left leg, states after she walks she gets tired fast; rash on her back and needs a refill on her albuterol inhaler. AGE LINE RELIEF OPERATOR Fortino Morales [facility] HealthJqsndn5505-25-89 14:30:17 Pt given printed and verbal discharge [...] in no apparent distress, Dayna Babcock [facility] HealthHrpdey0223-70-30 11:41:55 Pt arrived via transit bus with c/o back pain s/p fall 1 week ago. States she has not medicated forthe pain. Pt is also requesting refills of her nasal spray and inhaler. Rosalia Burton [facility]
[2024-06-03 11:34] LABS: PT Prothrombin Time 11.6 SECONDS (10-13.0); Protime INR 1.02
[2024-06-03 11:48] LABS: Albumin 3.5 g/dL (3.4-5.0); Albumin/Globulin Ratio 0.6 (1.1-1.8); Anion Gap 8.2 mEq/L (5.0-15.0); Bilirubin Direct 0.2 mg/dL (0-0.2); Bilirubin Indirect, Calculated 0.4 mg/dL (0.2-0.8); Bilirubin Total 0.6 mg/dL (0.2-1.0); Globulin 5.4 g/dL (2.3-3.5); Magnesium 1.7 mg/dL (1.6-2.4); Potassium 3.2 mEq/L (3.5-5.1); Protein, Total 8.9 g/dL (6.4-8.2)
[2024-06-03 11:50] LABS: Troponin High Sensitivity 184.8 pg/mL (<58.9)
--- NOTE | 2024-06-03 12:09 | RAD REPORT ---
EXAMINATION: ONE VIEW CHEST XR CLINICAL INDICATION: Female, 59 years old.,DYSPNEA TECHNIQUE: Frontal chest projection is submitted. Examination is limited by patient positioning and t echnique. COMPARISON: 04/22/2024 FINDINGS: The lungs are well inflated with stable interstitial coarsening. Crescentic left midlung opacity favo ring atelectasis. Small calcified left hilar lymph nodes, stable. No pneumothorax or sizable effusion. The heart is normal in size. Mediastinal contours are unremarkable. IMPRESSION: No acute intrathoracic abnormalities. Stable findings as above.
--- NOTE | 2024-06-03 12:31 | ER ---
Nurse's Notes [facility] Name: Charito Michael Age: 59 yrs Sex: Female : 1965 Arrival Date: 06/03/2024 Time: 10:39 Bed 2 Private MD: Diagnosis: Chest pain, unspecified;Dyspnea;COPD/ Chronic obstructive pulmonary disease with (acute) exacerbation;Combined systolic (congestive) and diastolic (congestive) heart failure;Asymptomatic human immunodeficiency virus [HIV] infection status;Non ST elevation CT Presentation: 06/03 10:46 Coronavirus screen: Client denies travel out of the [place] in the last 14 days. Ebola ll1 Screen: Patient denies travel to an Ebola-affected area in the 21 days before illness onset. Initial Sepsis Screen: Does the patient meet any 2 criteria? No. Patient's initial sepsis screen is negative. Does the patient have a suspected source of infection? No. Patient's initial sepsis screen is negative. Risk Assessment: Do you want to hurt yourself or someone else? Patient reports no desire to harm self or others. 10:46 Method Of Arrival: Wheelchair ll1 10:46 Acuity: GIULIANO 2 ll1 10:50 Chief complaint: Patient states: SOB on exertion since yesterday , hx of COPD. Onset of iw symptoms was June 02, 2024. Triage Assessment: 11:19 Respiratory: ph Historical: - Allergies: 10:45 NKA; ll1 - PMHx: 10:45 Chronic pain; Back pain; Hypertension; COPD; Hypercholesterolemia; HIV; CHF; seasonal ll1 allergies; - PSHx: 10:45 Total abdominal hysterectomy; ll1 - Immunization history:: Adult Immunizations up to date. - Infectious Disease History:: Denies. - Social history:: Smoking status: Patient reports the use of cigarette tobacco products, smokes one-half pack cigarettes per day. Screenin:18 [facility] ED Fall Risk Assessment (Adult) History of falling in the last 3 months, ph including since admission No falls in past 3 months (0 pts) Confusion or Disorientation No (0 pts) Intoxicated or Sedated No (0 pts) Impaired Gait No (0 pts) Mobility Assist Device Used No (0 pt) Altered Elimination No (0 pt) Score/Fall Risk Level 0 - 2 = Low Risk Oriented to surroundings, Maintained a safe environment, Hourly rounding (assess needs \T\ fall precautionary measures) done. Abuse screen: Denies threats or abuse. Denies injuries from another. Nutritional screening: No deficits noted. Tuberculosis screening: No symptoms or risk factors identified. Assessment: 10:45 General: Appears uncomfortable, Behavior is cooperative. Pain: Denies pain. Neuro: ha1 Level of Consciousness is awake, alert, obeys commands, Oriented to person, place, time, situation. Cardiovascular: Reports shortness of breath, Patient's skin is warm and dry. Rhythm is sinus rhythm. Respiratory: Airway is patent Respiratory effort is even, Respiratory pattern is regular, symmetrical, Breath sounds with wheezes bilaterally. GI: No signs and/or symptoms were reported involving the gastrointestinal system. Abdomen is round non-distended. : No signs and/or symptoms were reported regarding the genitourinary system. Derm: Skin is normal. Musculoskeletal: Circulation, motion, and sensation intact. 11:27 Reassessment: Patient and/or family updated on plan of care and expected duration. Pain ha1 level reassessed. Patient is alert, oriented x 3, equal unlabored respirations, skin warm/dry/pink. 12:55 Reassessment: Patient and/or family updated on plan of care and expected duration. Pain ha1 level reassessed. Patient is alert, oriented x 3, equal unlabored respirations, skin warm/dry/pink. 14:05 Reassessment: REPORT GIVEN TO HALLE MURRAY. kj2 Vital Signs: 10:50 BP 148 / 92; Pulse 81; Resp 20; Temp 97.5; Pulse Ox 91% on 4 lpm NC; Weight 68.04 kg; iw Height 5 ft. 3 in. ; Pain 5/10; 11:26 BP 146 / 90; Pulse 81; Resp 20 S; Pulse Ox 98% on 2 lpm NC; ha1 12:15 BP 145 / 86; Pulse 82; Resp 17 S; Pulse Ox 97% on 2 lpm NC; ha1 12:55 BP 137 / 81; Pulse 85; Resp 17 S; Pulse Ox 98% on 2 lpm NC; ha1 10:50 Body Mass Index 26.57 (68.04 kg, 160.02 cm) iw 10:50 Pain Scale: Adult iw ED Course: 10:41 Patient arrived in ED. al6 10:44 Chi Sanchez MD is Attending Physician. evelyn 10:45 Arm band placed on Patient placed in an exam room, on a stretcher. ll1 10:46 Triage completed. ll1 10:59 XRAY Chest (1 view) In Process Unspecified. EDMS 11:00 Inserted saline lock: 20 gauge in left antecubital area, using aseptic technique. Blood kj2 collected. Flushed with 10 mL NS. 11:02 Becky Sewell, HALLE is Primary Nurse. ph 11:18 Patient has correct armband on for positive identification. Bed in low position. Call ph light in reach. Side rails up X 1. Pulse ox on. NIBP on. Door closed. Noise minimized. Warm blanket given. 12:[address] Sanchez to [facility]. bd 12:30 pt accepted in transfer to [facility] [id number] Lord admin approval given bd by Samira Oakley. 13:07 [id number]. ty 14:57 No provider procedures requiring assistance completed. Patient transferred, IV remains ph in place. Administered Medications: 11:35 Drug: NS 0.9% IV 500 ml 500 ml IV at 1 bolus once; to be given as a bolus over 30 ph minutes Volume: 500 ml; Route: IV; Rate: 1 bolus; Site: left antecubital; 12:05 Follow up: Response: No adverse reaction; IV Status: Completed infusion ph 12:57 Drug: Levalbuterol Inhalation 2.5 mg Inhalation once Route: Inhalation; kj2 13:30 Follow up: Response: No adverse reaction ph 12:57 Drug: Ipratropium Inhalation Aerosol 0.5 mg Inhalation once Route: Inhalation; kj2 13:30 Follow up: Response: No adverse reaction ph 12:57 Drug: MethylPrednisoLONE IVP 125 mg IVP once Route: IVP; Site: left antecubital; kj2 13:30 Follow up: Response: No adverse reaction ph 12:57 Drug: Furosemide IVP 20 mg IVP once; give over 2 minutes Route: IVP; Site: left kj2 antecubital; 13:30 Follow up: Response: No adverse reaction ph 12:57 Drug: Rocephin IV 1 grams IV at per protocol once; Given slow IV push per pharmacy kj2 instructions Route: IV; Rate: per protocol; Site: left antecubital; 13:30 Follow up: Response: No adverse reaction; IV Status: Completed infusion ph 12:59 Drug: Aspirin PO Chewable Tablet 162 mg PO once Route: PO; kj2 13:30 Follow up: Response: No adverse reaction ph 12:59 Drug: Famotidine IVP 20 mg IVP once; dilute with 10 mL 0.9% NaCl; give over 2 minutes kj2 Route: IVP; Site: left antecubital; 13:30 Follow up: Response: No adverse reaction ph 12:59 Not Given (Patient Refused): enoxaparin1 mg/kg Sub-Q once kj2 13:27 Drug: Potassium PO Effervescent Tablet 50 mEq PO once; dissolve in 4 ounces of water or kj2 juice Route: PO; 19:07 Follow up: Response: No adverse reaction ph 14:36 Drug: Enoxaparin Sub-Q 1 mg/kg Sub-Q once Route: Sub-Q; Site: abdomen; ha1 19:07 Follow up: Response: No adverse reaction ph Medication: 11:19 VIS not applicable for this client. ph Outcome: 12:30 ER care complete, transfer ordered by MD. rivas 14:57 Patient left the ED. 1 14:57 Transferred by ground EMS to [facility], Transfer form ph completed. X-rays sent w/ patient. 14:57 Condition: good 14:57 Instructed on the need for transfer, Signatures: Dispatcher [employer] Shikha Diaz Corey, MD MD cha Williams, Irene, RN RN iw Hall, Patricia, RN RN ph Lewis, Lynsay, RN RN 1 Julia Rivero RN RN [facility] Raymond Newberry Krystal, RN RN 2 Izzy Vickers
--- NOTE | 2024-06-03 12:31 | EDPHYS ---
Physician Documentation [facility] Name: Charito Michael Age: 59 yrs Sex: Female : 1965 Arrival Date: 06/03/2024 Time: 10:39 Bed 2 Private MD: ED Physician Chi Sanchez HPI: 06/03 12:22 This 59 yrs old Black Female presents to ER via Wheelchair with complaints of Breathing evelyn Difficulty. 12:22 The patient has shortness of breath at rest, with light activity. Onset: The evelyn symptoms/episode began/occurred 2 day(s) ago. Duration: The symptoms are continuous, and are steadily getting worse. The patient's shortness of breath has no apparent modifying factors. Associated signs and symptoms: The patient has no apparent associated signs or symptoms. Severity of symptoms: At their worst the symptoms were mild in the emergency department the symptoms are unchanged. The patient has not experienced similar symptoms in the past. Historical: - Allergies: 10:45 NKA; ll1 - PMHx: 10:45 Chronic pain; Back pain; Hypertension; COPD; Hypercholesterolemia; HIV; CHF; seasonal ll1 allergies; - PSHx: 10:45 Total abdominal hysterectomy; ll1 - Immunization history:: Adult Immunizations up to date. - Infectious Disease History:: Denies. - Social history:: Smoking status: Patient reports the use of cigarette tobacco products, smokes one-half pack cigarettes per day. ROS: 12:22 Constitutional: Negative for fever, chills, and weight loss, Eyes: Negative for injury, evelyn pain, redness, and discharge, ENT: Negative for injury, pain, and discharge, Neck: Negative for injury, pain, and swelling, Cardiovascular: Negative for chest pain, palpitations, and edema, Abdomen/GI: Negative for abdominal pain, nausea, vomiting, diarrhea, and constipation, Back: Negative for injury and pain, : Negative for injury, bleeding, discharge, and swelling, MS/Extremity: Negative for injury and deformity, Skin: Negative for injury, rash, and discoloration, Neuro: Negative for headache, weakness, numbness, tingling, and seizure, Psych: Negative for depression, anxiety, suicide ideation, homicidal ideation, and hallucinations, Allergy/Immunology: Negative for hives, rash, and allergies, Endocrine: Negative for neck swelling, polydipsia, polyuria, polyphagia, and marked weight changes, Hematologic/Lymphatic: Negative for swollen nodes, abnormal bleeding, and unusual bruising, 12:22 Respiratory: Positive for cough, shortness of breath, Exam: 12:22 Constitutional: This is a well developed, well nourished patient who is awake, alert, evelyn and in no acute distress. Head/Face: Normocephalic, atraumatic. Eyes: Pupils equal round and reactive to light, extra-ocular motions intact. Lids and lashes normal. Conjunctiva and sclera are non-icteric and not injected. Cornea within normal limits. Periorbital areas with no swelling, redness, or edema. ENT: Nares patent. No nasal discharge, no septal abnormalities noted. Tympanic membranes are normal and external auditory canals are clear. Oropharynx with no redness, swelling, or masses, exudates, or evidence of obstruction, uvula midline. Mucous membranes moist. Neck: Trachea midline, no thyromegaly or masses palpated, and no cervical lymphadenopathy. Supple, full range of motion without nuchal rigidity, or vertebral point tenderness. No Meningismus. Chest/axilla: Normal chest wall appearance and motion. Nontender with no deformity. No lesions are appreciated. Cardiovascular: Regular rate and rhythm with a normal S1 and S2. No gallops, murmurs, or rubs. Normal PMI, no JVD. No pulse deficits. Respiratory: Lungs have equal breath sounds bilaterally, clear to auscultation and percussion. No rales, rhonchi or wheezes noted. No increased work of breathing, no retractions or nasal flaring. Abdomen/GI: Soft, non-tender, with normal bowel sounds. No distension or tympany. No guarding or rebound. No evidence of tenderness throughout. Back: No spinal tenderness. No costovertebral tenderness. Full range of motion. Skin: Warm, dry with normal turgor. Normal color with no rashes, no lesions, and no evidence of cellulitis. MS/ Extremity: Pulses equal, no cyanosis. Neurovascular intact. Full, normal range of motion., bilateral aka Neuro: Awake and alert, GCS 15, oriented to person, place, time, and situation. Cranial nerves II-XII grossly intact. Motor strength 5/5 in all extremities. Sensory grossly intact. Cerebellar exam normal. Normal gait. Psych: Awake, alert, with orientation to person, place and time. Behavior, mood, and affect are within normal limits. 12:22 ECG was reviewed by the Attending Physician. Vital Signs: 10:50 BP 148 / 92; Pulse 81; Resp 20; Temp 97.5; Pulse Ox 91% on 4 lpm NC; Weight 68.04 kg; iw Height 5 ft. 3 in. ; Pain 5/10; 11:26 BP 146 / 90; Pulse 81; Resp 20 S; Pulse Ox 98% on 2 lpm NC; ha1 12:15 BP 145 / 86; Pulse 82; Resp 17 S; Pulse Ox 97% on 2 lpm NC; ha1 12:55 BP 137 / 81; Pulse 85; Resp 17 S; Pulse Ox 98% on 2 lpm NC; ha1 10:50 Body Mass Index 26.57 (68.04 kg, 160.02 cm) iw 10:50 Pain Scale: Adult iw MDM: 10:44 Medical Screening Exam initiated 06/03 10:45 Order name: Basic Metabolic Panel; Complete Time: 12:06 06/03 10:45 Order name: CBC with Diff; Complete Time: 12:06 06/03 10:45 Order name: LFT's; Complete Time: 12:06/03 10:45 Order name: Magnesium; Complete Time: 12:06/03 10:45 Order name: NT PRO-BNP; Complete Time: 12:06 06/03 10:45 Order name: PT-INR; Complete Time: 12:06 06/03 10:45 Order name: Troponin HS; Complete Time: 12:06/03 10:45 Order name: Blood Culture Adult (2) 06/03 10:45 Order name: Lactate w/ 2H reflex if indic.; Complete Time: 12:06 06/03 10:45 Order name: XRAY Chest (1 view); Complete Time: 12:19 06/03 10:45 Order name: Cardiac monitoring; Complete Time: 11:06/03 10:45 Order name: EKG - Nurse/Tech; Complete Time: 11:17 06/03 10:45 Order name: IV Saline Lock; Complete Time: 11:06/03 10:45 Order name: Labs collected and sent; Complete Time: 11:06/03 10:45 Order name: O2 Per Protocol; Complete Time: [facility] 06/03 10:45 Order name: O2 Sat Monitoring; Complete Time: : [facility] EC: Rate is 81 beats/min. Rhythm is regular. QRS [place] is Normal. OR interval is normal. QRS evelyn interval is normal. No Q waves. T waves are Normal. No ST changes noted. Clinical impression: NSR w/ Non-specific ST/T Changes, Abnormal EKG without significant change, and No evidence of ischemia. Interpreted by me. Reviewed by me. Administered Medications: 11:35 Drug: NS 0.9% IV 500 ml 500 ml IV at 1 bolus once; to be given as a bolus over 30 ph minutes Volume: 500 ml; Route: IV; Rate: 1 bolus; Site: left antecubital; 12:05 Follow up: Response: No adverse reaction; IV Status: Completed infusion ph 12:57 Drug: Levalbuterol Inhalation 2.5 mg Inhalation once Route: Inhalation; kj2 13:30 Follow up: Response: No adverse reaction ph 12:57 Drug: Ipratropium Inhalation Aerosol 0.5 mg Inhalation once Route: Inhalation; kj2 13:30 Follow up: Response: No adverse reaction ph 12:57 Drug: MethylPrednisoLONE IVP 125 mg IVP once Route: IVP; Site: left antecubital; kj2 13:30 Follow up: Response: No adverse reaction ph 12:57 Drug: Furosemide IVP 20 mg IVP once; give over 2 minutes Route: IVP; Site: left [facility] antecubital; 13:30 Follow up: Response: No adverse reaction ph 12:57 Drug: Rocephin IV 1 grams IV at per protocol once; Given slow IV push per pharmacy kj2 instructions Route: IV; Rate: per protocol; Site: left antecubital; 13:30 Follow up: Response: No adverse reaction; IV Status: Completed infusion ph 12:59 Drug: Aspirin PO Chewable Tablet 162 mg PO once Route: PO; kj2 13:30 Follow up: Response: No adverse reaction ph 12:59 Drug: Famotidine IVP 20 mg IVP once; dilute with 10 mL 0.9% NaCl; give over 2 minutes kj2 Route: IVP; Site: left antecubital; 13:30 Follow up: Response: No adverse reaction ph 12:59 Not Given (Patient Refused): enoxaparin1 mg/kg Sub-Q once kj2 13:27 Drug: Potassium PO Effervescent Tablet 50 mEq PO once; dissolve in 4 ounces of water or kj2 juice Route: PO; 19:07 Follow up: Response: No adverse reaction ph 14:36 Drug: Enoxaparin Sub-Q 1 mg/kg Sub-Q once Route: Sub-Q; Site: abdomen; ha1 19:07 Follow up: Response: No adverse reaction ph Disposition Summary: 06/03/24 12:30 Transfer Ordered Notes: Transfer Location: [facility] evelyn Reason: Higher level of care evelyn Condition: Fair evelyn Problem: new evelyn Symptoms: have improved evelyn Accepting Physician: TO [facility], [facility](06/03/24 14:57) ll1 Diagnosis - Chest pain, unspecified evelyn - Dyspnea evelyn - COPD/ Chronic obstructive pulmonary disease with (acute) exacerbation evelyn - Combined systolic (congestive) and diastolic (congestive) heart failure evelyn - Asymptomatic human immunodeficiency virus [HIV] infection status evelyn - Non ST elevation [place] evelyn Forms: - Medication Reconciliation Form evelyn - SBAR form evelyn Signatures: Dispatcher [employer] EDMS Chi Sanchez MD MD cha Williams, Irene RN HALLE Becky Sewell RN RN ph Tone Diehl RN RN ll1 Julia Rivero RN RN ha1 Cherry Charles RN RN kj2 Corrections: (The following items were deleted from the chart) 10:45 10:45 BASIC METABOLIC PANEL+C.LAB.BRZ ordered. EDMS EDMS 10:45 10:45 CBC+H.LAB.BRZ ordered. EDMS EDMS 10:45 10:45 HEPATIC FUNCTION+C.LAB.BRZ ordered. EDMS EDMS 10:45 10:45 MAGNESIUM+C.LAB.BRZ ordered. EDMS EDMS 10:45 10:45 PROBNP+C.LAB.BRZ ordered. EDMS EDMS 10:45 10:45 PROTIME (+INR)+COAG.LAB.BRZ ordered. EDMS EDMS 10:45 10:45 Troponin High Sensitivity+C.LAB.BRZ ordered. EDMS EDMS 10:46 10:45 BLOOD CULTURE*+BA.LAB.BRZ ordered. EDMS EDMS 10:46 10:45 LACTATE+C.LAB.BRZ ordered. EDMS EDMS 10:46 10:45 Urinalysis+U.LAB.BRZ ordered. EDMS EDMS 10:46 10:46 Chest Single View+RAD.RAD.BRZ ordered. EDMS EDMS 12:32 12:30 TO [facility], [facility] evelyn 14:57 12:32 TO [facility], [facility] ll1
[2024-06-03] MEDS ORDERED: METHYLPREDNISOLONE 125 MG INJ ONE (12:40)
[2024-06-03] MEDS ORDERED: CEFTRIAXONE 1000 MG/VIAL ONE (12:40)
[2024-06-03] MEDS ORDERED: IPRATROPIUM BROM 0.5MG/2.5ML ONE (12:40)
[2024-06-03] MEDS ORDERED: ENOXAPARIN 80 MG/0.8 ML SQ ONE (12:41)
[2024-06-03] MEDS ORDERED: ASPIRIN 81 MG CHEWABLE TABLET ONE (12:41)
[2024-06-03] MEDS ORDERED: FUROSEMIDE 20 MG/ 2ML VIAL ONE (12:41)
[2024-06-03] MEDS ORDERED: LEVALBUTEROL 1.25 MG/3 ML NEB ONE (12:41)
[2024-06-03] MEDS ORDERED: FAMOTIDINE 20 MG/2 ML VIAL IV ONE (12:42)
[2024-06-03] MEDS ORDERED: POTASSIUM 25 MEQ EFFERV TAB ONE (13:12)
[2024-06-03] MEDS ORDERED: ENOXAPARIN 60 MG/0.6 ML SQ ONE (14:33)
[2024-06-03 16:15] VITALS: TEMP 97.5
[2024-06-03 16:19] VITALS: BP 137/81; O2SAT 98
--- NOTE | 2024-06-04 12:13 | EKG ---
Test Date: 2024-06-03 Test Time: 10:57:40 Venipuncturist: SARABJIT MEASUREMENT RESULTS: Intervals: Rate: 81 NE: 134 QRSD: 76 QT: 400 QTc: 464 [place]: P: 70 NE: 134 QRS: 70 T: 65 INTERPRETIVE STATEMENTS: Sinus rhythm with premature atrial complexes with aberrant conduction Biatrial enlargement ST & T wave abnormality, consider inferolateral ischemia Abnormal ECG Compared to ECG 04/19/2024 03:09:09 Aberrant conduction of supraventricular beat(s) now present ST (T wave) deviation now present Possible ischemia now present T-wave abnormality no longer present Electronically Signed On 06-04-24 12:09:26 CDT by Aidan Armstrong
== END 2024-06-03 14:57 | disposition short-term general hospital (02) ==
LOC: ER 10:39
DX: I21.4 Non-ST elevation (NSTEMI) myocardial infarction (principal); J44.1 Chronic obstructive pulmonary disease with (acute) exacerbation; I50.40 Unspecified combined systolic (congestive) and diastolic (congestive) heart failure; Z21 Asymptomatic human immunodeficiency virus [HIV] infection status; R06.00 Dyspnea, unspecified; I10 Essential (primary) hypertension; F17.210 Nicotine dependence, cigarettes, uncomplicated
CPT/HCPCS: 96365; 93005; 87040 ×2; 85025; 80048; 36415; 83735; 85610; 80076; 83605; 84484; 83880; 71045; 96375; 96372; 99285; J1650; J1938; J7614; J7644; J2919; J7040; J0696

== ENCOUNTER 2024-06-21 22:40 | Inpatient (IN) | payer OTHER ==
[2024-06-21] MEDS ORDERED: METHYLPREDNISOLONE 125 MG INJ ONE (23:06)
[2024-06-21] MEDS ORDERED: LEVALBUTEROL 1.25 MG/3 ML NEB ONE (23:06)
[2024-06-21 23:15] LABS: Absolute Basophils 0.1 K/uL (0-0.5); Absolute Lymphocytes (CBC) 0.9 K/uL (0.7-4.9); Absolute Monocytes 0.4 K/uL (0.1-1.3); Absolute Neutrophil 4.2 K/uL (1.8-8.0); Basophils % 1.2 % (0-1.3); Eosinophils % 0.6 % (0-4.4); Hematocrit 34.5 % (36.0-45.0); Hemoglobin 11.7 g/dL (12.0-15.0); Lymphocytes % 16.4 % (15.3-44.8); MCH 33.6 pg (27.0-35.0); MCV 98.7 fL (80-100); MPV 9.5 fL (7.6-11.3); Monocytes % 7.4 % (3.3-12.3); Neutrophils % 74.4 % (41.7-73.7); Nucleated Red Blood Cells % 0.2 % (0-0); Platelets 196 thou/uL (152-406); RBC Red Blood Cell Count 3.49 M/uL (3.86-4.86); Red Cell Distribution Width 16.2 % (12.1-15.2)
[2024-06-21 23:17] LABS: PT Prothrombin Time 11.7 SECONDS (10-13.0); PTT, Activated Partial Thromb 31.9 SECONDS (27.2-37.4); Protime INR 1.03
--- OUTSIDE RECORDS SUMMARY | 2024-06-21 23:33 | XMS REPORT | Continuity of Care Document ---
Author Name Unknown Address [address] [facility] [place] [address] [facility] [place] Address [address] [facility] [address] [place] [address] Care Team Providers Care Trimmer Sawyer Name Role Phone Delfino Schumacher [facility] Physician Zaria Orellana Attending Clinician Unavail able KENJI LORD Attending Clinician Unavailable KENJI LORD Attending Clinician Unavailable Spenser Chahal DO Attending Clinician [phone] Atif Jackson Attending Clinician [phone] Miugel NERI, Abbi Bustillos Attending Clinician Unabboby Lord MD, Kenji Bradley Attending Clinician [phone] Doctor Unassigned, [place] Attending Clinician U Lianet Morin Attending Clinician +- [phone] Lena NERI, Lj Bustillos Attending Clinician Unavail able KVNG ROBERSON Attending Clinician Unavailable Ezra GLORIA, Anyi Attending Clinician [phone] Kvng Roberson DO Attending Clinician +[phone] GASTON HOBBS Attending Clinician Unavailable Gaston Hobbs MD Attending Clinician [phone] Mark ENVIRONMENTAL ENGINEER, Kasandra Attending Clinician [phone] LEE HENDERSON Attending Clinician Unavailab CLARITZA Booth Attending Clinician Unavail able Doctor Unassigned, [place] Attending Clinician U iván Almaguer RN, Jeanine Jones Attending Clinician UnaGuerline Hemphill MD Attending Clinician [phone] Guero Pantoja Attending Clinician [phone] GUERO MARTINEZ Attending Clinician Unavailable Jeanie NERI, Osman Loya Attending Clinician Unavaila harvey RODRIGUEZ Attending Clinician Unavailable Dean_Robert Attending Clinician Unavailable APOLINAR WEBER Attending Clinician Unavailable Pgy2 Attending Clinician Unavailable Apolinar Weber MD Attending Clinician + [phone] Enedina Mccarty MD Attending Clinician + [phone] BILLY VALERIO Attending Clinician Unavailabl Toby Roe MD Attending Clinician [phone] Delores Garcia MD, Tressa Schwartz Attending Clinician +[phone] Billy Valerio MD Attending Clinician +- [phone] Evette Dunn MA Attending Clinician Unavailab KENNEDI Pop Attending Clinician Unavailable Eduarda RECREATION FACILITY ATTENDANT, Kennedi Islas Attending Clinician + [phone] Mikael Quiroz Attending Clinician + [phone] LJ LIANG Attending Clinician Unavailable Lj Mcguire Attending Clinician + [phone] MARGARET NUNEZ Attending Clinician Unavailab Margaret Rodgers DO Attending Clinician [phone] Bonny Morris MD K.H. Attending Clinician + [phone] BONNY MORRISHAg Attending Clinician Unavaila Terri Clemente Attending Clinician [phone] Blanco PAC, Dawn S Attending Clinician Maggie_A Attending Clinician Unavailable Josse Steele Attending Clinician JOSSE LOCKHART Attending Clinician UnavailKENJI Morrison Admitting Clinician Unavailable Kenji Lord MD Admitting Clinician KVNG ROBERSON Admitting Clinician Unavailable Kvng Roberson DO Admitting Clinician [phone] GASTON HOBBS Admitting Clinician Unavailable JENNIFER Admitting Clinician Unavailable Av Admitting Clinician Unavailable Tressa ESTRELLA JR Admitting Clinician Unavailtressa Estrella Jr., MD, Tressa Schwartz Admitting Clinician [phone] KENNEDI BLUE Admitting Clinician Unavailable Sammi Admitting Clinician Unavailable Payers Payer Name Policy Type Policy Number Effective Date Expirati on Date Source [facility] DUAL COMP HMO-POS D SNP [id number] 2024 00:00:00 [place] [id number] 2023 00:00:00 [facility] Dual Complete (HMO-POS D-SNP) [id number] [facility] HEALTH (MEDICARE REPLACEMENT HMO) [id number] 2020 00:00:00 Problems Condition Name Condition Details Condition Category Status Onset Date Resolution Date Last Treatment Date Treating Clinician Comments Source SOB (shortness of breath) SOB (shortness of breath) Disease Active 06-09 00:00: 00 [facility] Shortness of breath Shortness of breath Disease Active 06-03 00:00: 00 [facility] COPD exacerbati on COPD exacerbati on Disease Active 05-18 00:00: 00 [facility] Troponin I above reference range Troponin I above reference range Disease Active 05-18 00:00: 00 [facility] Other hyperlipid emia Other hyperlipid emia Disease Active 05-18 00:00: 00 [facility] TAIWO (acute kidney injury) TAIWO (acute kidney injury) Disease Active 05-18 00:00: 00 [facility] Aortic stenosis Aortic stenosis Disease Active 05-18 00:00: 00 [facility] Coronary artery disease involving [place] coronary artery of [place] heart without angina pectoris Coronary artery disease involving [place] coronary artery of [place] heart without angina pectoris Disease Active 05-18 00:00: 00 [facility] Acute cough Acute cough Disease Active 05-15 00:00: 00 [facility] Acute cough Acute cough Disease Active 05-15 00:00: 00 [facility] 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 Active 06-27 00:00: 00 [facility] Bacteremia Bacteremia Disease Active 06-09 00:00: 00 [facility] Medically noncomplia nt Medically noncomplia nt Disease Active 09-02 00:00: 00 [facility] Thrush Thrush Disease Active 09-02 00:00: 00 [facility] Obesity (BMI 30-39.9) Obesity (BMI 30-39.9) Disease Active 05-31 00:00: 00 [facility] Genital warts Genital warts Disease Active 08-25 00:00: 00 [facility] H/O: hysterecto my H/O: hysterecto my Disease Active 08-25 00:00: 00 [facility] [id number] Allergic rhinitis, unspecifie d seasonalit y, unspecifie d trigger Problem [facility] [id number] Mental developmen carmen delay Problem [facility] [id number] History of hepatitis C Problem [facility] [id number] 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) Problem [facility] [id number] HIV disease Problem [facility] [id number] +5th digit eff 11/12/19*St age 1 chronic kidney disease Problem [facility] [id number] Chronic kidney disease, unspecifie d CKD stage Problem [facility] [id number] Essential hypertensi on Problem [facility] [id number] Chronic heart failure with preserved ejection fraction Problem [facility] [id number] Pulmonary emphysema, unspecifie d emphysema type Problem [facility] [id number] Mental disability Problem [facility] [id number] Lumbago with sciatica, right side Problem [facility] [id number] Lumbago with sciatica, left side Problem [facility] [id number] On home O2 Problem Commo n [facility] [id number] Environmen carmen allergies Problem [facility] [id number] Vitamin D deficiency Problem [facility] [id number] Other chronic pain Problem [facility] [id number] Cardiac murmur Problem [facility] [id number] CHRIS (generaliz ed anxiety disorder) Problem [facility] [id number] Mixed hyperlipid emia Problem [facility] [id number] Seasonal allergies Problem [facility] Allergies, Adverse Reactions, Alerts Allergy Name Allergy Type Status Severity Reaction(s) Onset Date Inactive Date Treating Clinician Comments Source NO KNOWN ALLERGIE S Drug Class Active [facility] Social History Social Habit Start Date Stop Date Quantity Comments Source Gender identity [facility] Sexual orientation U [facility] ASSERTION Not [facility] History of Tobacco Use Current Smoker [facility] Sex Assigned At [facility] Alcoholic beverage intake 2024-06-03 00:00:00 2024-06-03 00:00:00 Current non-drinker of alcohol (finding) [facility] Tobacco use and exposure 2024-06-03 00:00:00 2024-06-03 00:00:00 Smokeless tobacco non-user [facility] Alcohol intake 2023-05-16 00:00:00 2023-05-16 00:00:00 Current non-drinker of alcohol (finding) [facility] Exposure to SARS-CoV-2 (event) 2022-03-24 00:00:00 2022-04-03 13:07:00 Not sure [facility] History of Social function 2022-04-03 00:00:00 2022-04-03 00:00:00 [facility] Smoking Status Start Date Stop Date Source Never smoked tobacco [facility] Current Smoker 2023-12-06 00:00:00 [facility] Medications Ordered Medication Name Filled Medication Name Start Date Stop Date Current Medication? Ordering Clinician Indication Dosage Frequency Signature (SIG) Comments Components Source furosemide 20 mg tablet 06-20 00:00: 00 Yes [id number] 20mg TAKE 1 TABLET BY MOUTH EVERY DAY IN THE MORNING [facility] aspirin 81 mg tablet,ruchi yed release 06-09 00:00: 00 Yes mg Delfino Orta albuterol sulfate HFA 90 mcg/actuati on aerosol inhaler 06-09 00:00: 00 Yes mcg/act uation Delfino Orta fluticasone propionate 50 mcg/actuati on nasal spray,suspe nsion 06-09 00:00: 00 Yes 2mcg/ac tuation Delfino Orta aspirin 81 mg chewable tablet 06-06 00:00: 00 Yes [id number] 81mg Take 1 tablet by mouth in the morning. [facility] ipratropium (ATROVENT) 0.02 % nebulizer solution 0.5 mg 06-05 03:44: 07 06-05 22:23 :07 No .5mg 0.5 mg, Inhalation , Q6HPRN, Starting on Sat06/04/24 at 2244, Until Sat06/05/24 at 1723, Routine, Wheezing, Shortness of Breath [facility] ramelteon (ROZEREM) tablet 8 mg ramelteon (ROZEREM) tablet 8 mg 06-05 01:21: 00 06-05 01:41 :00 Yes 8mg 8 mg, Oral, QHS, 1 dose, First dose on Sat06/04/24 at 2030, Routine [facility] furosemide 20 mg tablet 06-05 00:00: 00 06-20 00:00 :00 No [id number] 20mg Take 1 tablet by mouth in the morning. [facility] perflutren protein-A microsphr (OPTISON) injection 3 mL 06-04 20:15: 06-04 20:15 :00 No [id number] 3mL 3 mL, IV Push, ONCE, 1 dose, On Sat06/04/24 at 1515, Routine [facility] aspirin chewable tablet 81 mg aspirin chewable tablet 81 mg 06-04 14:00: 00 Yes 81mg 81 mg, Oral, DAILY, First dose on Sat06/04/24 at 0900, Until Discontinu ed, Routine [facility] fluticasone propionate 50 mcg/actuati on nasal spray 2 [place] fluticasone propionate 50 mcg/actuati on nasal spray 2 [place] 06-04 14:00: 00 06-05 22:23 :07 Yes 2{spray } 2 [place], Nasal, DAILY, First dose on Sat06/04/24 at 0900, Until Discontinu ed, Routine [facility] sulfamethox azole-trime thoprim (BACTRIM DS) 800-160 mg per tablet 1 tablet sulfamethox azole-trime thoprim (BACTRIM DS) 800-160 mg per tablet 1 tablet 06-04 14:00: 06-05 22:23 :07 Yes 1{tbl} 1 tablet, Oral, DAILY, First dose on Sat06/04/24 at 0900, Until Discontinu ed, ANTONIETTA, Reason for Anti-Infec tive: Empiric Non-Surgic al Prophylaxi s, Duration of therapy: As Defined in Treatment / Therapy Plan, Specific indication : PJP [facility] bictegrav-e mtricit-ten ofov ala (BIKTARVY) 50-200-25 mg tablet 1 tablet bictegrav-e mtricit-ten ofov ala (BIKTARVY) 50-200-25 mg tablet 1 tablet 06-04 14:00: 00 06-05 22:23 :07 Yes 1{tbl} 1 tablet, Oral, DAILY, First dose on Sat06/04/24 at 0900, Until Discontinu ed, Routine [facility] ipratropium -albuteroL (DUONEB) 0.5 mg-3 mg(2.5 mg base)/3 mL nebulizer solution 3 mL ipratropium -albuteroL (DUONEB) 0.5 mg-3 mg(2.5 mg base)/3 mL nebulizer solution 3 mL 06-04 13:00: 00 06-05 22:23 :07 Yes 3mL 3 mL, Inhalation , TID, First dose (after last modificati on) on Sat06/04/24 at 0800, Until Discontinu ed, Routine [facility] glucagon HCL injection 1 mg 06-04 07:35: 49 06-05 22:23 :07 No 1mg 1 mg, Intramuscu lar, PRN, Starting on Sat06/04/24 at 0235, Until Sat06/05/24 at 1723, ANTONIETTA, Low blood sugar, Blood Glucose < or = 70 mg/dL and patient is NPO, unable to swallow or has mental changes. [facility] dextrose 50 % in water (D50W) injection 25 mL 06-04 07:35: 49 06-05 22:23 :07 No 25mL 25 mL, Slow IV Push, PRN, Starting on Sat06/04/24 at 0235, Until Sat06/05/24 at 1723, ANTONIETTA, Blood Glucose < or = 70 mg/dL and patient is NPO, unable to swallow or has mental status changes. [facility] atorvastati n (LIPITOR) tablet 40 mg atorvastati n (LIPITOR) tablet 40 mg 06-04 02:00: 00 06-05 22:23 :07 Yes 40mg 40 mg, Oral, QHS, First dose on Sat06/03/24 at 2100, Until Discontinu ed, Routine [facility] heparin (porcine) injection 5,000 Units [id number] 4-24 01:00: 00 06-05 22:23 :07 Yes 5000U 5,000 Units, Subcutaneo us, Q12H, First dose on Sat06/03/24 at 2000, Until Discontinu ed, Routine [facility] ipratropium -albuteroL (DUONEB) 0.5 mg-3 mg(2.5 mg base)/3 mL nebulizer solution 3 mL ipratropium -albuteroL (DUONEB) 0.5 mg-3 mg(2.5 mg base)/3 mL nebulizer solution 3 mL 06-04 01:00: 00 06-04 08:55 :20 Yes 3mL 3 mL, Inhalation , Q4H, First dose on Sat06/03/24 at 1999, Until Discontinu ed, Routine [facility] magnesium sulfate in water 4 gram/50 mL (8 %) IV Piggyback 4 g magnesium sulfate in water 4 gram/50 mL (8 %) IV Piggyback 4 g 06-04 00:45: 00 06-04 02:51 :00 Yes 4g 4 g, IV Piggyback, at 25 mL/hr Administer over 120 Minutes, ONCE, 1 dose, On Sat06/03/24 at 1945, Routine [facility] nitroglycer in (NITROSTAT) sublingual tablet 0.4 mg 06-03 21:53: 10 06-05 22:23 :07 No .4mg [facility] acetaminoph en (TYLENOL) tablet 650 mg acetaminoph en (TYLENOL) tablet 650 mg 06-03 21:53: 10 06-05 22:23 :07 Yes 650mg 650 mg, Oral, Q6HPRN, Starting on Sat06/03/24 at 1653, Until Sat06/05/24 at 1723, Routine, Pain (scale 1-3) [facility] aspirin 81 mg tablet,ruchi yed release 06-01 00:00: 00 Yes mg Delfino Orta albuterol sulfate HFA 90 mcg/actuati on aerosol inhaler - 00:00: 00 Yes mcg/act uation Delfino Orta aspirin 81 mg tablet,ruchi yed release - 00:00: 00 Yes mg Delfino Orta albuterol sulfate HFA 90 mcg/actuati on aerosol inhaler 05-27 00:00: 00 Yes mcg/act uation Delfino Orta albuterol sulfate HFA 90 mcg/actuati on aerosol inhaler 05-19 00:00: 00 Yes mcg/act uation Delfino Orta [...] tuation Delfino Orta doxepin 10 mg capsule 05-05 00:00: 00 Yes 1mg Delfino Orta duloxetine 60 mg capsule,del ayed release 05-05 00:00: 00 Yes 1mg Delfino Orta aspirin 81 mg tablet,ruchi yed release 04-09 [...] sulfate HFA 90 mcg/actuati on aerosol inhaler -14 00:00: 00 Yes mcg/act uation Delfino F You ibuprofen 800 mg tablet 1-14 00:00: 00 Yes 1mg Delfino Orta trazodone 50 mg tablet -14 00:00: 00 Yes 12mg Delfino Orta albuterol sulfate HFA 90 mcg/actuati on aerosol inhaler 2023-02 2- 00:00: 00 Yes mcg/act uation Delfino Orta [...] 50 mcg/actuati on nasal spray,suspe nsion 2023-02 014 00:00: 00 Yes 2mcg/ac tuation Delfino Orta duloxetine 30 mg capsule,del ayed release 2023-02 014 00:00: 00 Yes 1mg Delfino Orta albuterol sulfate HFA 90 mcg/actuati on aerosol inhaler 2023-02 008 00:00: 00 Yes mcg/act uation Delfino Orta Qvar RediHaler 80 mcg/actuati on HFA breath activated aerosol 2023-02 008 00:00: 00 Yes 12mcg/a ctuatio n Delfino Orta baclofen 5 mg tablet 2023-02 0- 00:00: 00 Yes 1mg Delfino Orta duloxetine 30 mg capsule,del ayed release 2023-02 008 00:00: 00 Yes 1mg Delfino Orta Trelegy [...] (Triamcinol one) 11-10 00:00: 00 No 40mg [facility] baclofen 5 mg tablet 11-01 00:00: 00 Yes 1mg Delfino Orta ibuprofen 800 mg tablet 0 11-01 00:00: 00 Yes 1mg Delfino Orta duloxetine 30 mg capsule,del ayed release 0 11-01 00:00: 00 Yes 1mg Delfino Orta aspirin 81 mg tablet,ruchi yed release 10-15 00:00: 00 Yes mg Delfino Orta albuterol sulfate HFA 90 mcg/actuati on aerosol inhaler 0 10-10 00:00: 00 Yes mcg/act uation Delifno Orta triamcinolo ne acetonide 0.1 % topical cream 10-10 00:00: 00 Yes 1% Delfino Orta losartan 100 mg-hydrochl orothiazide 12.5 mg tablet 10-10 00:00: 00 Yes 1mg Delfino Orta baclofen 5 mg tablet 0 10-10 00:00: 00 Yes 1mg Delfino Orta melatonin 10 mg tablet 0 10-10 00:00: 00 Yes 1mg Delfino Orta fluticasone propionate 50 mcg/actuati on nasal spray,suspe nsion 0 10-10 00:00: 00 Yes 2mcg/ac tuation Delfino Orta baclofen 5 mg tablet 0 10-08 00:00: 00 Yes 1mg Delfino Orta duloxetine 30 mg capsule,del ayed release 10-08 00:00: 00 Yes 1mg Delfino Orta fluticasone propionate 50 mcg/actuati on nasal spray,suspe nsion 0 10-03 00:00: 00 Yes 2mcg/ac tuation Delfino Orta Biktarvy 50 mg-200 mg-25 mg tablet 09-30 00:00: 00 Yes mg Delfino Orta Qvar RediHaler 80 mcg/actuati on HFA breath activated aerosol 09-30 00:00: 00 Yes 12mcg/a ctuatio n Delfino Orta albuterol sulfate HFA 90 mcg/actuati on aerosol inhaler 0 - 00:00: 00 Yes mcg/act uation Delfino Orta losartan 100 mg-hydrochl orothiazide 12.5 mg tablet 2024-0 8-13 00:00: 00 Yes 1mg Delfino Orta amlodipine 10 mg tablet 0 8-13 00:00: 00 Yes 1mg Delfino Orta baclofen 5 mg tablet 0 - 00:00: 00 Yes 1mg Delfino Orta trazodone 50 mg tablet 0 - 00:00: 00 Yes 12mg Delfino Orta atorvastati n 40 mg tablet 0 8- 00:00: 00 Yes 1mg Delfino Orta albuterol sulfate HFA 90 mcg/actuati on aerosol inhaler 0 8- 00:00: 00 Yes mcg/act uation Delfino Orta amlodipine 10 mg tablet 0 - 00:00: 00 Yes 1mg Delfino Orta losartan 100 mg-hydrochl orothiazide 12.5 mg tablet 0 8- 00:00: 00 Yes 1mg Delfino Orta baclofen 5 mg tablet 0 8- 00:00: 00 Yes 1mg Delfino Orta atorvastati [...] triamcinolo ne acetonide 0.1 % topical cream - 00:00: 00 Yes 1% Delfino Orta amoxicillin [...] 80 mcg/actuati on HFA breath activated aerosol - 00:00: 00 Yes 12mcg/a ctuatio n Delfino Orta baclofen 5 mg tablet - 00:00: 00 Yes 1mg Delfino Orta baclofen 5 mg tablet 0 7-11 00:00: 00 Yes 1mg Delfino Orta aspirin 81 mg tablet,ruchi yed release 6- 00:00: 00 Yes mg Delfino Orta Biktarvy [...] 05-20 00:00: 00 06-20 04:59 :00 No [id number] 81mg Take 1 tablet by mouth in the morning for 30 days. [facility] predniSONE 20 mg tablet 05-20 00:00: 00 05-24 04:59 :00 No [id number] 40mg Take 2 tablets by mouth in the morning for 3 days. [facility] celecoxib 400 mg capsule 05-19 16:42: 32 Yes 400mg Take 1 capsule by mouth in the morning. [facility] ALPRAZOLAM ORAL 05-19 16:42: 32 06-03 00:00 :00 No Take by mouth. [facility] atorvastati n (LIPITOR) tablet 40 mg 05-19 02:00: 00 Yes 40mg 40 mg, Oral, QHS, First dose on 05/19/23 at 2100, Until Discontinu ed, Routine [facility] aspirin 81 mg tablet,ruchi yed release 05-19 00:00: 00 Yes mg Delfino Orta PREDNISONE 20MG 05-19 00:00: 00 Yes Delfino Orta budesonide 0.5 mg/2 mL nebulizer solution 05-19 00:00: 00 06-19 04:59 :00 No [id number] 1mg Inhale 4 mL every 12 (twelve) hours for 30 days. [facility] aspirin EC tablet 81 mg 05-18 20:45: 00 Yes 81mg 81 mg, Oral, DAILY, First dose on 05/19/23 at 1545, Until Discontinu ed, Routine [facility] predniSONE (DELTASONE) tablet 40 mg 05-18 14:00: 00 Yes 40mg 40 mg, Oral, DAILY, First dose on Sat05/19/23 at 0900, Until Discontinu ed, Routine [facility] methylpredn isolone sod succ (SOLU-MEDRO L) injection 125 mg 05-17 10:00: 00 05-17 14:54 :19 No 125mg 125 mg, Slow IV Push, Q6H ABX, First dose on Sat05/18/23 at 0500, Until Discontinu ed, Routine [facility] budesonide (PULMICORT RESPULE) nebulizer solution 1 mg 05-17 07:00: 00 Yes 1mg 1 mg, Inhalation , Q12H, First dose on Sat05/18/23 at 0200, Until Discontinu ed, Routine
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
Gayatri son for non-formul fanta use: Treatment failure with formulary alternativ e [facility] sulfamethox azole-trime thoprim (BACTRIM DS) 800-160 mg per tablet 1 tablet 05-17 01:00: 00 Yes 1{tbl} 1 tablet, Oral, QM/SAT/ RI AT 1999, First dose on Sat05/17/23 at 1999, Until Discontinu ed, Routine
Reason for Anti-Infec tive: Empiric Non-Surgic al Prophylaxi s
Durat ion of therapy: 5 days [facility] predniSONE 20 mg tablet 05-17 00:00: 00 05-21 04:59 :00 No [id number] 20mg Take 1 tablet by mouth in the morning for 3 days. [facility] NaCl 0.9% (NS) IV infusion 1,000 mL 05-16 21:00: 00 Yes 1000mL at 75 mL/hr, IV Infusion, CONTINUOUS , Starting on Sat05/17/23 at 1600, Until Discontinu ed, Routine [facility] magnesium sulfate in water 2 gram/50 mL (4 %) infusion 2 g 05-16 18:45: 00 05-16 19:50 :00 No 2g 2 g, IV Piggyback, Administer over 60 Minutes, ONCE, 1 dose, On Sat05/17/23 at 1345, Routine [facility] losartan (COZAAR) tablet 100 mg 05-16 14:00: 00 Yes 100mg 100 mg, Oral, DAILY, First dose on Sat05/17/23 at 0900, Until Discontinu ed, Routine [facility] fluconazole (DIFLUCAN) tablet 200 mg 05-16 14:00: 00 Yes 200mg 200 mg, Oral, DAILY, First dose on Sat05/17/23 at 0900, Until Discontinu ed, ANTONIETTA
Re ason for Anti-Infec tive: Empiric Non-Surgic al Prophylaxi s
Durat ion of therapy: 5 days [facility] bictegrav-e mtricit-ten ofov ala (BIKTARVY) 50-200-25 mg [...] home supply? Yes
Dos age Form: Capsule [facility] predniSONE (DELTASONE) tablet 40 mg 05-16 14:00: 00 05-17 09:48 :38 No 40mg 40 mg, Oral, DAILY, 5 doses, First dose on Sat05/17/23 at 0900, Last dose on Sat05/21/23 at 0900, Routine [facility] metoprolol tartrate (LOPRESSOR) tablet 12.5 mg 05-16 13:00: 00 Yes 12.5mg 12.5 mg, Oral, BID, First dose on Sat05/17/23 at 0800, Until Discontinu ed, Routine [facility] fluticasone propionate (FLOVENT HFA) 220 mcg/actuati on inhaler 2 Puff 05-16 13:00: 00 Yes 2{puff} 2 Puff, Inhalation , Q12H, First dose on Sat05/17/23 at 0800, Until Discontinu ed, Routine
Is this order for a patient with suspected or confirmed COVID-19 infection? No [facility] cetirizine (ZYRTEC) tablet 10 mg 05-16 03:00: 00 Yes 10mg 10 mg, Oral, QHS, First dose on Sat05/16/23 at 2200, Until Discontinu ed [facility] amLODIPine (NORVASC) tablet 10 mg 05-16 03:00: 00 Yes 10mg 10 mg, Oral, DAILY, First dose on Sat05/16/23 at 2200, Until Discontinu ed, Routine [facility] heparin (porcine) injection 5,000 Units 05-16 03:00: 00 Yes 5000U 5,000 Units, Subcutaneo us, Q8H, First dose on Sat05/16/23 at 2200, Until Discontinu ed, Routine [facility] albuterol (VENTOLIN) inhaler 2 Puff 05-16 02:35: 18 Yes 2{puff} 2 Puff, Inhalation , Q6HPRN, Starting on Sat05/16/23 at 2135, Until Discontinu ed, Routine, Wheezing, Shortness of Breath [facility] ipratropium -albuteroL (DUONEB) 0.5 mg-3 mg(2.5 mg base)/3 mL nebulizer solution 3 mL 05-15 21:00: 00 05-15 18:01 :47 No 3mL 3 mL, Inhalation , QID, First dose on Sat05/16/23 at 1600, Until Discontinu ed, Routine [facility] azithromyci n (ZITHROMAX) 500 mg in NaCl [...] y
Durat ion of therapy: 72 hours [facility] magnesium sulfate in water 2 gram/50 mL (4 %) infusion 2 g 05-15 19:45: 00 05-15 19:54 :00 No 2g 2 g, IV Piggyback, Administer over 60 Minutes, ONCE, 1 dose, On Farrah 05/16/23 at 1445, Routine [facility] albuterol (PROVENTIL) 2.5 mg /3 mL (0.083 %) nebulizer solution 7.5 mg 05-15 19:45: 00 05-15 18:54 :00 No 7.5mg 7.5 mg, Inhalation , ONCE, 1 dose, On Farrah 05/16/23 at 1445, ANTONIETTA [facility] acetaminoph en (TYLENOL) tablet 650 mg 05-15 19:30: 37 Yes 650mg 650 mg, Oral, Q6HPRN, Starting on Farrah 05/16/23 at 1430, Until Discontinu ed, Routine, Pain (scale 1-3) [facility] NaCl 0.9% (NS) bolus infusion 1,000 mL 05-15 18:30: 00 05-15 19:34 :00 No 1000mL at 999 mL/hr, 1,000 mL, IV Infusion, ONCE, 1 dose, On Farrah 05/16/23 at 1330, [place] [facility] budesonide (PULMICORT RESPULE) nebulizer solution 1 mg 05-15 18:15: 00 05-15 17:40 :00 No 1mg 1 mg, Inhalation , ONCE, 1 dose, On Farrah 05/16/23 at 1315, Routine [facility] albuterol (PROVENTIL) 2.5 mg /3 mL (0.083 %) nebulizer solution 5 mg 05-15 18:00: 00 05-15 18:03 :00 No 5mg 5 mg, Inhalation , ONCE, 1 dose, On Farrah 05/16/23 at 1315, STAT [facility] methylpredn isolone sod succ (SOLU-MEDRO L) injection 125 mg 05-15 17:31: 00 05-15 17:41 :00 No 125mg 125 mg, Intravenou s, ONCE, 1 dose, On Sat05/16/23 at 1245, [place] [facility] sodium chloride (NS) injection 5 mL 05-15 17:25: 52 Yes 5mL 5 mL, Intravenou s, PRN, Starting on Sat05/16/23 at 1225, Until Discontinu ed, Routine, IV line flushing [facility] IBUPROFEN 600MG 05-12 00:00: 00 Yes 600 [...] 1 TABLET BID NEEDED 04-17 00:00: 00 2024- 05-15 00:00 :00 No 600 Delfino Orta TAKE 1 TO 2 TABLETS AT BEDTIME - 00:00: 00 Yes 50 Delfino Orta TAKE 1 CAPSULE DAILY WITH FOOD. - 00:00: 00 Yes 400 Delfino Orta ALBUTEROL SULFATE HFA 108 (90 Base) MCG/ACT AERS 20 00:00: 00 Yes Delfino Orta TAKE 2 [...] 04-02 00:00: 00 06-25 00:00 :00 No [id number] Delfino Orta TAKE 1 TABLET DAILY. 04-02 00:00: 00 06-25 00:00 :00 No 20 Delfino Orta naproxen (NAPROSYN) tablet 250 mg 03-20 23:00: 00 Yes 250mg 250 mg, Oral, BID MEALS, First dose on Sat03/20/23 at 1700, Until Discontinu ed, Routine [facility] albuterol sulfate HFA 90 mcg/actuati on aerosol inhaler 03-20 00:00: 00 Yes mcg/act uation Delfino Orta TAKE 1 TABLET BY MOUTH TWICE DAILY FOR 20 DOSES TAKE IN THE MORNINGS AND THE EVENINGS 03-20 00:00: 00 Yes Delfino Orta hydrocortis one 1%-nystatin -zinc oxide Oint ointment 03-20 00:00: 00 Yes [id number] Apply to affected area(s) as needed for Dermatitis /Rash. [facility] albuterol 90 mcg/actuati on inhaler 03-20 00:00: 00 Yes [id number] 2{puff} Inhale 2 Puffs every 6 (six) hours as needed for Wheezing or Shortness of Breath. [facility] naproxen 250 mg tablet 07 00:00: 00 03-31 05:59 :00 No [id number] 250mg Take 1 tablet by mouth in the morning and 1 tablet in the evening. Take with meals. Do all this for 20 doses. Marcie ity [facility] Qvar RediHaler 80 mcg/actuati on HFA breath activated aerosol 03-07 00:00: 00 Yes mcg/act uation Delfino Orta TAKE 1 TABLET DAILY. 03-07 00:00: 00 Yes 10 Delfino Orta TAKE 1 TABLET DAILY. 03-07 00:00: 00 Yes [id number] Delfino Orta TAKE 1 TABLET BY MOUTH [...] 45 Delfino Orta ATORVASTATI N 40MG 2022-02 0- 00:00: 00 Yes Delfino Orta CITALOPRAM 20MG 2022-02 0-30 00:00: 00 Yes Delfino Orta AMLODIPINE 10MG 2022-02 0 00:00: 00 Yes Delfino Orta LOSARTAN/HC T 100-12.5 2022-02 0 00:00: 00 Yes Delfino Orta sulfamethox azole 800 mg-trimetho prim 160 mg tablet 11-01 00:00: 00 Yes mg Delfino Orta INHALE 1 TO 2 PUFFS BY MOUTH EVERY 6 HOURS NEEDED. 11-01 00:00: 00 06-25 00:00 :00 No [id number] Delfino Orta TAKE 1 TO 2 TABLETS [...] mcg/actuati on inhaler 09-17 00:00: 00 Yes [id number] 2{puff} Inhale 2 Puffs every 4 (four) hours as needed for Wheezing or Shortness of Breath. [facility] ibuprofen 600 mg tablet 09-17 00:00: 00 06-03 00:00 :00 No [id number] 600mg Take 1 tablet by mouth every 6 (six) hours as needed for Pain (scale 4-6). [facility] IBUPROFEN 600MG 09-17 00:00: 00 06-25 00:00 :00 No Delfino Orta TAKE 1 TABLET DAILY. 09-12 00:00: 00 06-25 00:00 :00 No [id number] Delfinosurinder Orta TAKE 1 TABLET DAILY. 09-12 00:00: 00 06-25 00:00 :00 No 10 Delfino Orta 1-2 PUFFS Q 12 HOURS 09-12 00:00: 00 06-25 00:00 :00 No 80 Delfinosurinder Orta TAKE 1 TABLET BY MOUTH DAILY 09-12 00:00: 00 06-25 00:00 :00 No 40 Delfinosurinder Orta TAKE 1 TABLET DAILY. 09-12 00:00: 00 06-25 00:00 :00 No 10 Delfinosurinder Orta INHALE 1 TO 2 PUFFS BY MOUTH EVERY 6 HOURS NEEDED. 09-12 00:00: 00 06-25 00:00 :00 No [id number] Delfino Orta INHALE 2 PUFFS TWICE DAILY. RINSE MOUTH AFTER USE. 09-12 00:00: 00 06-25 00:00 :00 No 220 Delfinosurinder Orta TAKE 1 TO 2 TABLETS AT BEDTIME 09-12 00:00: 00 06-25 00:00 :00 No 25 Delfino Endy Orta ALBUTEROL PA HFA 200 INH 09-06 00:00: 00 Yes Delfinosurinder Orta TAKE 1 TABLET DAILY. 08-02 00:00: [...] 07-04 00:00: 00 06-25 00:00 :00 No [id number] Delfino Orta TAKE 1 TABLET DAILY. 07-04 00:00: 00 06-25 00:00 :00 No 10 Delfinosurinder Orta TAKE 1 TABLET BY MOUTH DAILY 07-04 00:00: 00 06-25 00:00 :00 No 40 Delfino Orta TAKE 1 TABLET AT BEDTIME. 07-04 00:00: 00 06-25 00:00 :00 No 45 Delfino Orta INHALE 2 PUFFS TWICE DAILY. RINSE MOUTH AFTER USE. 07-04 00:00: 00 06-25 00:00 :00 No 220 Delfino Orta TAKE 1 TABLET DAILY. 07-04 00:00: 00 06-25 00:00 :00 No [id number] Delfino Orta TAKE 1 TABLET DAILY. 07-04 [...] No Delfino Orta TAKE 1 TABLET DAILY. -09 00:00: 00 06-25 00:00 :00 No [id number] Delfino Orta TAKE 1 TABLET DAILY. - 00:00: 06-25 00:00 :00 No 20 Delfinosurinder Orta AMLODIPINE BESYLATE 10 MG TABS 04-19 00:00: 00 06-25 00:00 :00 No Delfino Orta IBUPROFEN 600 MG TABS 04-19 00:00: 00 06-25 00:00 :00 No Delfino Endy Orta CHLORHEXIDI NE GLUCONATE 0.12 % SOLN 04-11 00:00: 00 06-25 00:00 :00 No Delfino Endy Orta bictegrav-e mtricit-ten ofov ala 50-200-25 mg tablet 04-03 00:00: 00 Yes [id number] 1{tbl} Take 1 tablet by mouth in the morning. [facility] sulfamethox azole-trime thoprim 800-160 mg per tablet 04-03 00:00: 00 Yes [id number] 1{tbl} Take 1 tablet by mouth in the morning. [facility] fluconazole 200 mg tablet 04-03 00:00: 00 06-03 00:00 :00 No [id number] 200mg Take 1 tablet by mouth in the morning. [facility] sulfamethox azole 800 mg-trimetho prim 160 mg tablet 04-03 00:00: 00 06-25 00:00 :00 No Delfino Endy Orta TAKE 1 TABLET BY MOUTH IN THE MORNING 04-03 00:00: 00 06-25 00:00 :00 Eva Saleh Endy Orta TAKE 1 TABLET BY MOUTH IN THE MORNING 04-03 00:00: 00 06-25 00:00 :00 Eva Saleh Endy Orta TAKE 1 TABLET ONCE DAILY BEFORE MEALS 04-02 00:00: 00 06-25 00:00 :00 No 40 Delfino Endy Orta trazodone 50 mg tablet 04-02 00:00: 00 06-25 00:00 :00 Eva Orta INHALE 1 TO 2 PUFFS BY MOUTH EVERY 6 HOURS NEEDED. 03-30 00:00: 00 06-25 00:00 :00 No [id number] Delfino Orta atorvastati n 40 mg tablet 217 00:00: 00 06-25 00:00 :00 No Delfino Orta amlodipine 10 mg tablet 2-16 00:00: 00 06-25 00:00 :00 No Delfino [...] nsion 03-28 00:00: 00 06-25 00:00 :00 Eva Orta FLUTICASONE 50MCG RX SPR 03-08 00:00: 00 06-25 00:00 :00 No Delfino Orta MELOXICAM 7.5MG 03-08 00:00: 00 06-25 00:00 :00 No Delfino Orta CHLORHEX GLU 0.12% ESTRELLA 03-08 00:00: 00 06-25 00:00 :00 Eva Orta INHALE 1 TO 2 PUFFS BY MOUTH EVERY 6 HOURS NEEDED. -24 00:00: 00 06-25 00:00 :00 No [id number] Delfino Orta APPLY OINTMENT 3 TO 4 TIMES PER DAY TO AFFECTED AREA FOR 14 DAYS -18 00:00: 00 No 20 APPLY OINTMENT 3 TO 4 TIMES PER DAY TO AFFECTED AREA FOR 14 DAYS -18 00:00: 00 06-25 00:00 :00 No 20 Delfino Orta TAKE 1 CAPSULE BY MOUTH EVERY 8 HOURS NEEDED FOR COUGH 1-03 00:00: 00 No 100 TAKE 1 CAPSULE BY MOUTH EVERY 8 HOURS NEEDED FOR COUGH 03 00:00: 00 06-25 00:00 :00 No Delfino Schumacher You TAKE 1 TABLET DAILY. 2021-02 00:00: 00 [...] Dose Unknown 2021-02 00:00: 00 No NYSTATIN [id number] ROOPA 2021-02 00:00: 00 No CITALOPRAM HYDROBROMID [...] Orta VANCOMYCIN HYDROCHLORI DE 250 MG CAPS 2021-0214 00:00: 00 06-25 00:00 :00 No Delfino [...] Delfino F You IBUPROFEN 400MG TAB 2021-02 00:00: 00 06-25 [...] 06-25 00:00 :00 No Delfino Orta NYSTATIN [id number] ROOPA 2021-02 00:00: 00 06-25 00:00 :00 [...] 00:00: 00 No AMLODIPINE BESYLATE 10MG TAB 2022-0 8-18 00:00: 00 No AMLODIPINE BESYLATE 10MG TAB 2021-0 8-18 00:00: 00 No AMLODIPINE BESYLATE 10MG TAB 2021-0 8-18 00:00: 00 Yes Delfino Orta TAKE BY MOUTH 6 MILLILITERS 4 TIMES A DAY FOR 14 DAYS 0 7-20 00:00: 00 No Dose Unknown 0 7-20 00:00: 00 No TAKE BY MOUTH 6 MILLILITERS 4 TIMES A DAY FOR 14 DAYS 0 7-20 00:00: 00 No FLUTICASONE PROPIONATE 50MCG RX SPR 0 - 00:00: 00 No TAKE BY MOUTH 6 MILLILITERS 4 TIMES A DAY FOR 14 DAYS 0 7-20 00:00: 00 No Dose Unknown 0 7- 00:00: 00 No TAKE BY MOUTH 6 MILLILITERS 4 TIMES A DAY FOR 14 DAYS 0 7-20 00:00: 00 Yes Delfino Endy Orta FLUTICASONE PROPIONATE 50MCG RX SPR 0 08-30 00:00: 00 Yes Delfino Orta losartan [...] Orta atorvastati n 40 mg tablet 0 08-07 00:00: 00 Yes 1mg Delfino Orta amlodipine 10 mg tablet 08-07 00:00: 00 Yes 1mg Delfino Orta allopurinol 100 mg tablet 0 08-07 00:00: 00 Yes 1mg Delfino Orta cyclobenzap rine 5 mg tablet 0 08-07 00:00: 00 Yes 1mg Delfino Orta ibuprofen 400 mg tablet 0 08-07 00:00: 00 Yes 1mg Delfino Orta fluticasone propionate 50 mcg/actuati on nasal spray,suspe nsion 0 08-07 00:00: 00 Yes 1mcg/ac tuation Delfino Orta &lt 2-0 08-07 00:00: 00 Yes Delfino Orta &lt 2-0 08-07 00:00: 00 Yes Delfino Orta &lt 2021-0 08-07 00:00: 00 Yes Delfino Orta &lt 2021-0 08-07 00:00: 00 Yes Delfino Orta Dose Unknown 08-07 00:00: 00 06-25 00:00 :00 No 400 Delfino Orta &lt 2021-0 08-04 00:00: 00 No &lt 2022-0 08-04 00:00: 00 No &lt 2022-0 08-04 00:00: 00 No &lt 2022-0 08-04 00:00: 00 Yes Delfino Orta mirtazapine 45 mg tablet 0 08-02 00:00: 00 No 1mg TAKE 1 TABLET AT BEDTIME. 0 08-02 00:00: 00 No mirtazapine 45 mg tablet 0 08-02 00:00: 00 No 1mg mirtazapine 45 mg tablet 0 08-02 00:00: 00 Yes 1mg Delfino Orta &lt 2021-0 07-28 00:00: 00 No &lt 2022-0 07-28 00:00: 00 No &lt 2022-0 07-28 00:00: 00 No &lt 2022-0 07-28 00:00: 00 No &lt 2022-0 6 00:00: 00 No &lt 2022-0 6 00:00: 00 No &lt 2022-0 07-28 00:00: 00 Yes Delfino Orta &lt 07-28 00:00: 00 Yes Delfino Orta imiquimod [...] 07-03 00:00: 00 06-25 00:00 :00 No [id number] Delfino Orta sulfamethox azole-trime thoprim 800-160 mg per tablet 06-15 00:00: 00 04-03 00:00 :00 No [id number] 1{tbl} Take 1 tablet by mouth daily. [facility] ALPRAZOLAM ORAL 06-14 17:22: 53 Yes Take by mouth. [facility] metoprolol tartrate 25 mg tablet 06-14 00:00: 00 Yes [id number] 12.5mg Take 0.5 tablets by mouth 2 (two) times daily. [facility] efavirenz 600 mg tablet 06-14 00:00: 00 06-03 00:00 :00 No [id number] 600mg Take 1 tablet by mouth daily. [facility] nystatin 100,000 unit/mL suspension 06-14 00:00: 06-03 00:00 :00 No [id number] Take 5 mL by mouth 4 (four) times daily. [facility] amoxicillin -clavulanat e 875-125 mg per tablet 06-14 00:00: 00 04-03 00:00 :00 No [id number] 1{tbl} Take 1 tablet by mouth every 12 (twelve) hours. [facility] lamiVUDine 150 mg tablet 06-14 00:00: 00 04-03 00:00 :00 No [id number] 150mg Take 1 tablet by mouth 2 (two) times daily. [facility] ProAir HFA 90 mcg/actuati on aerosol inhaler [...] 4- 00:00: 00 No 1mg Dose Unknown 05-22 [...] 1mg Delfino Orta amlodipine 10 mg tablet 4- 00:00: 00 Yes 1mg Delfino Orta losartan [...] Delfino Orta TRIAMCINOLO NE ACETONIDE 0.1% CRE 05-12 00:00: 00 06-25 00:00 :00 No 100 Delfino Orta Dose Unknown 05-03 00:00: 00 No Dose Unknown 0 3 00:00: 00 No Dose Unknown 0 05-03 00:00: 00 No Dose Unknown 0 3 00:00: 00 No Dose Unknown 0 3 00:00: 00 No Dose Unknown 0 3 00:00: 00 No Dose Unknown 0 3 00:00: 00 No Dose Unknown 0 3 00:00: 00 No Dose Unknown 0 3 00:00: 00 No Dose Unknown 0 3 00:00: 00 Yes Delfino Orta Dose Unknown 2022-0 3-23 00:00: 00 Yes Delfino Orta Dose Unknown 2022-0 3-23 00:00: 00 Yes Delfino Orta FLOVENT HFA 220MCG/A INH 2022-0 3-23 00:00: 00 2024- 05-15 00:00 :00 No [id number] Delfino Orta Dose Unknown 2022-0 3-21 00:00: [...] 00 Yes Delfino Orta Dose Unknown 2022-0 1-26 00:00: [...] 1mcg/ac tuation Dose Unknown 03-08 00:00: 00 Yes Delfino Schumacher You fluticasone propionate 50 mcg/actuati on nasal spray,suspe nsion 03-08 00:00: 00 Yes 1mcg/ac tuation Delfino [...] Dose Unknown 2020-02 2- 00:00: 00 No tizanidine 4 mg tablet [...] 1mcg/ac tuation Dose Unknown 2020-02 00:00: 00 Yes Delfino [...] 100 mg tablet 09-30 00:00: 00 Yes [id number] 100mg Take 1 tablet by mouth daily. [facility] Flovent HFA 220 mcg/actuati on aerosol inhaler [...] 09-17 00:00: 00 Yes 2mcg/ac tuation Delfino F [...] 10 mg tablet 08-12 00:00: 00 Yes [id number] 10mg Take 1 tablet by mouth daily. [facility] atorvastati n 40 mg tablet 08-12 00:00: 00 Yes [id number] 40mg Take 1 tablet by mouth at bedtime. [facility] fluticasone propionate 50 mcg/actuati on nasal spray 07-20 00:00: 00 Yes [id number] 2{spray } Use 2 Sprays in each nostril daily. [facility] fluticasone propionate (FLOVENT HFA) 220 mcg/actuati on inhaler 07-20 00:00: 00 Yes [id number] 2{puff} Inhale 2 Puffs every 12 (twelve) hours. [facility] albuterol 90 mcg/actuati on inhaler 07-20 00:00: 00 03-20 00:00 :00 No [id number] 2{puff} Inhale 2 Puffs every 4 (four) hours as needed for Wheezing or Shortness of Breath. [facility] ibuprofen 800 mg tablet 07-19 00:00: 00 No 1mg ibuprofen 800 mg tablet 07-19 00:00: 00 No 1mg ibuprofen 800 mg tablet 07-19 00:00: 00 No 1mg ibuprofen 800 mg tablet 07-19 00:00: 00 Yes 1mg Delfino F You ProAir HFA 90 mcg/actuati [...] 00 Yes 1mcg/ac tuation Delfino Orta ibuprofen 600 mg tablet 07-01 00:00: 00 06-03 00:00 :00 No [id number] 600mg Take 1 tablet by mouth every 6 (six) hours as needed for Pain (scale 4-6). [facility] Flovent HFA 220 mcg/actuati on aerosol inhaler [...] inhaler 06-17 00:00: 00 Yes 2mcg/ac tuation Delifno Orta ProAir HFA 90 mcg/actuati on aerosol [...] 50 mcg/actuati on nasal spray,suspe nsion 0 5-07 00:00: 00 Yes 1mcg/ac tuation Delfino Orta Voltaren 1 % topical gel 0 3-12 00:00: 00 No 1% mirtazapine 45 mg tablet 0 3-12 00:00: 00 No 1mg Tessalon Perles 100 mg capsule 0 3-12 00:00: 00 No 12mg Voltaren 1 % topical gel 0 3-12 00:00: 00 No 1% mirtazapine 45 mg tablet 0 3-12 00:00: 00 No 1mg Tessalon Perles 100 mg capsule 0 3-12 00:00: 00 No 12mg Voltaren 1 % topical gel 0 3-12 00:00: 00 No 1% mirtazapine 45 mg tablet 0 3-12 00:00: 00 No 1mg Tessalon Perles 100 mg capsule 0 3-12 00:00: 00 No 12mg Voltaren 1 % topical gel 0 3-12 00:00: 00 Yes 1% Delfino Orta mirtazapine 45 mg tablet 0 3-12 00:00: 00 Yes 1mg Delfino Orta Tessalon Perles 100 mg capsule 0 3-12 00:00: 00 Yes 12mg Delfino Orta fluticasone propionate 50 mcg/actuati on nasal spray,suspe nsion 0 1-19 00:00: 00 No 1mcg/ac tuation fluticasone propionate 50 mcg/actuati on nasal spray,suspe nsion 0 1-19 00:00: 00 No 1mcg/ac tuation fluticasone propionate [...] 2019-02 00:00: 00 Yes 2mcg/ac tuation Delfino F You ProAir HFA 90 mcg/actuati on aerosol inhaler 2019-02 00:00: 00 Yes 1mcg/ac tuation Delfino F You Voltaren 1 % topical gel 2019-02 00:00: 00 Yes 1% Delfino F You loratadine 10 mg tablet 2019-02 00:00: 00 Yes 1mg Delfino F You Epzicom 600 mg-300 mg tablet 2019-02 00:00: 00 Yes 1mg Delfino F You amlodipine 10 mg tablet 2019-02 00:00: 00 Yes 1mg Delfino F You losartan 100 mg tablet 2019-02 00:00: 00 [...] Orta atorvastati n 40 mg tablet 0 06-23 00:00: 00 Yes 1mg Delfino Orta [...] HFA 220 mcg/actuati on aerosol inhaler 0 05-04 00:00: 00 No 2mcg/ac tuation ProAir HFA 90 mcg/actuati on aerosol inhaler 0 05-04 00:00: 00 No 1mcg/ac tuation Epzicom 600 mg-300 mg tablet 05-04 00:00: 00 No 1mg citalopram 20 mg tablet 05-04 00:00: 00 No 1mg montelukast 10 mg tablet - 00:00: 00 No 1mg atorvastati n 40 mg tablet 0 - 00:00: 00 No 1mg losartan 100 mg tablet 0 - 00:00: 00 No 1mg amlodipine 10 mg tablet 0 05-04 00:00: 00 No 1mg allopurinol 100 [...] 1mg Delfino Orta losartan 100 mg tablet 24 00:00: 00 Yes 1mg Delfino Orta amlodipine 10 mg tablet 24 00:00: 00 Yes 1mg Delfino Orta allopurinol 100 mg tablet 24 00:00: 00 Yes 1mg Delfino Orta loratadine [...] 04-03 00:00: 00 Yes 1mg Delfino Orta fluconazole 150 mg tablet 03-31 00:00: 00 No 1mg fluconazole 150 mg tablet 218 00:00: 00 No 1mg fluconazole 150 mg tablet 18 00:00: 00 No 1mg fluconazole 150 mg tablet 18 00:00: 00 Yes 1mg Delfino Orta Flovent HFA 220 mcg/actuati on aerosol inhaler 2- 00:00: 00 No 2mcg/ac tuation Flovent HFA 220 mcg/actuati on aerosol inhaler 2-11 00:00: 00 No 2mcg/ac tuation ProAir HFA 90 mcg/actuati on aerosol inhaler 2- 00:00: 00 No 1mcg/ac tuation Epzicom 600 mg-300 mg tablet 2020-0 2-11 00:00: 00 No 1mg ProAir HFA [...] on aerosol inhaler 0 1-08 00:00: 00 No 2mcg/ac tuation allopurinol 100 mg tablet 0 1-08 00:00: 00 No 1mg losartan 100 mg tablet 0 1-08 00:00: 00 No 1mg amlodipine 10 mg tablet 0 1-08 00:00: 00 No 1mg atorvastati n 40 mg tablet 0 1-08 00:00: 00 No 1mg citalopram 20 mg [...] HFA 220 mcg/actuati on aerosol inhaler 2018-02 00:00: 00 No 2mcg/ac tuation Flovent HFA [...] 2018-02 0-21 00:00: 00 Yes 1mg Delfino Schumacher You Flovent HFA 220 mcg/actuati on aerosol inhaler 2018-02 0-16 00:00: 00 No 2mcg/ac tuation ProAir HFA [...] on aerosol inhaler 2018-02 0-16 00:00: 00 No 2mcg/ac tuation ProAir HFA [...] inhaler 2018-0216 00:00: 00 Yes 1mcg/ac tuation Delfnio Orta allopurinol 100 mg tablet 2018-0216 00:00: 00 Yes 1mg Delfino Orta amlodipine 10 mg tablet 2018-0216 00:00: 00 Yes 1mg Delfino Orta mirtazapine 30 mg tablet 2018-0216 00:00: 00 Yes 1mg Delfino Orta loratadine [...] chlorhexidi ne (PERIDEX) 0.12 % mouthwash 2018-02 0 00:00: 00 Yes [id number] 15mL Swish and spit out 15 mL 2 (two) times daily. [facility] chlorhexidi ne (PERIDEX) 0.12 % mouthwash 2018-02 00:00: 00 Yes [id number] 15mL Swish and spit out 15 mL 2 (two) times daily. [facility] allopurinol 100 mg tablet 11-03 00:00: 00 [...] on aerosol inhaler 0 09-08 00:00: 00 No 2mcg/ac tuation ProAir [...] mg tablet 05-20 00:00: 00 Yes 1mg Delifno Orta citalopram 20 mg tablet 05-20 00:00: [...] 00 No 1mg amlodipine 10 mg tablet 2019-0 3-12 00:00: 00 Yes 1mg Delfino Orta Flovent [...] oral suspension 2017-02 00:00: 00 Yes 5unit/m L Delfino Orta triamcinolo ne acetonide 0.1 % [...] 09-10 00:00: 00 Yes 2mcg/ac tuation Delfino F [...] Delfino Orta azithromyci n 250 mg tablet 2017-0 4-24 00:00: 00 Yes 1mg Delfino Orta Cetirizine (ZYRTEC) 10 mg capsule 2014-02 00:00: 00 Yes 10mg Take 1 Cap by mouth at bedtime. [facility] Flovent HFA 220 MCG/ACT Flovent HFA 220 [...] Albuterol Sulfate HFA 108 (90 Base) MCG/ACT Fluconazole 200 MG Fluconazole 200 MG No [...] Orta Influenza Virus Vaccine 2023-07-02 00:00:00 Completed [facility] TDAP 2023-07-02 00:00:00 Completed [facility] Evusheld (Cilgavimab) 2023-07-02 00:00:00 Completed [facility] Evusheld (Tixagevimab) 2023-07-02 00:00:00 Completed [facility] Influenza Virus Vaccine 2023-05-21 00:00:00 Completed [facility] TDAP 2023-05-21 00:00:00 Completed [facility] Evusheld (Cilgavimab) 2023-05-21 00:00:00 Completed [facility] Evusheld (Tixagevimab) 2023-05-21 00:00:00 Completed [facility] Influenza Virus Vaccine 2023-05-16 12:13:00 Completed [facility] TDAP 2023-05-16 12:13:00 Completed [facility] Evusheld (Cilgavimab) 2023-05-16 12:13:00 Completed [facility] Evusheld (Tixagevimab) 2023-05-16 12:13:00 Completed [facility] Influenza Virus Vaccine 2023-03-20 10:44:00 Completed [facility] TDAP 2023-03-20 10:44:00 Completed [facility] Evusheld (Cilgavimab) 2023-03-20 10:44:00 Completed [facility] Evusheld (Tixagevimab) 2023-03-20 10:44:00 Completed [facility] Hep A-Hep B Hep A-Hep B 2022-09-24 00:00:00 Completed Delfino Endy You influenza, injectable influenza, injectable 2022-09-24 00:00:00 Completed Delfino Endy You SHINGRIX VACCINE SHINGRIX VACCINE 2022-09-24 00:00:00 Completed Delfino Endy You Hep A-Hep B Hep A-Hep B 2022-09-24 00:00:00 Completed Delfino Orta influenza, injectable influenza, injectable 2022-09-24 00:00:00 Completed Delfino Orta SHINGRIX VACCINE SHINGRIX VACCINE 2022-09-24 00:00:00 Completed Delfino Orta Evusheld (Cilgavimab) 2021-06-13 00:00:00 Completed [facility] Evusheld (Tixagevimab) 2021-06-13 00:00:00 Completed [facility] Evusheld (Cilgavimab) 2021-06-13 00:00:00 Completed [facility] Evusheld (Tixagevimab) 2021-06-13 00:00:00 Completed [facility] Evusheld (Cilgavimab) 2021-06-13 00:00:00 Completed [facility] Evusheld (Tixagevimab) 2021-06-13 00:00:00 Completed [facility] Evusheld (Cilgavimab) 2021-06-13 00:00:00 Completed [facility] Evusheld (Tixagevimab) 2021-06-13 00:00:00 Completed [facility] Evusheld (Cilgavimab) 2021-06-13 00:00:00 Completed [facility] Evusheld (Tixagevimab) 2021-06-13 00:00:00 Completed [facility] Evusheld (Cilgavimab) 2021-06-13 00:00:00 Completed [facility] Evusheld (Tixagevimab) 2021-06-13 00:00:00 Completed [facility] Evusheld (Cilgavimab) 2021-06-13 00:00:00 Completed [facility] Evusheld (Tixagevimab) 2021-06-13 00:00:00 Completed [facility] Evusheld (Cilgavimab) 2021-06-13 00:00:00 Completed [facility] Evusheld (Tixagevimab) 2021-06-13 00:00:00 Completed [facility] Evusheld (Cilgavimab) 2021-06-13 00:00:00 Completed [facility] Evusheld (Tixagevimab) 2021-06-13 00:00:00 Completed [facility] Evusheld (Cilgavimab) 2021-06-13 00:00:00 Completed [facility] Evusheld (Tixagevimab) 2021-06-13 00:00:00 Completed [facility] Evusheld (Cilgavimab) 2021-06-13 00:00:00 Completed [facility] Evusheld (Tixagevimab) 2021-06-13 00:00:00 Completed Moderna COVID-19 Vaccine Moderna COVID-19 Vaccine 2021-02-20 00:00:00 Completed Delfino Endy Orta Moderna COVID-19 Vaccine Moderna COVID-19 Vaccine 2021-02-20 00:00:00 Completed Delfino Schumacher You Moderna COVID-19 Vaccine Moderna COVID-19 Vaccine 2020-05-03 00:00:00 Completed Delfino Endy Orta Moderna COVID-19 Vaccine Moderna COVID-19 Vaccine 2020-05-03 00:00:00 Completed Delfino Orta Moderna COVID-19 Vaccine Moderna COVID-19 Vaccine 2020-04-05 00:00:00 Completed Delfino Endy Orta Moderna COVID-19 Vaccine Moderna COVID-19 Vaccine 2020-04-05 00:00:00 Completed Delfino Orta TDAP 2014-08-19 00:00:00 Completed [facility] TDAP 2014-08-19 00:00:00 Completed [facility] TDAP 2014-08-19 00:00:00 Completed [facility] TDAP 2014-08-19 00:00:00 Completed [facility] TDAP 2014-08-19 00:00:00 Completed [facility] TDAP 2014-08-19 00:00:00 Completed [facility] TDAP 2014-08-19 00:00:00 Completed [facility] TDAP 2014-08-19 00:00:00 Completed [facility] TDAP 2014-08-19 00:00:00 Completed [facility] TDAP 2014-08-19 00:00:00 Completed [facility] TDAP 2014-08-19 00:00:00 Completed [facility] Influenza Virus Vaccine 2012-01-21 00:00:00 Completed [facility] Influenza Virus Vaccine 2012-01-21 00:00:00 Completed [facility] [place] Influenza Virus Vaccine 2012-01-21 00:00:00 Completed [facility] [place] Influenza Virus Vaccine 2012-01-21 00:00:00 Completed [facility] [place] Influenza Virus Vaccine 2012-01-21 00:00:00 Completed [facility] [place] Influenza Virus Vaccine 2012-01-21 00:00:00 Completed [facility] [place] Influenza Virus Vaccine 2012-01-21 00:00:00 Completed [facility] [place] Influenza Virus Vaccine 2012-01-21 00:00:00 Completed [facility] [place] Influenza Virus Vaccine 2012-01-21 00:00:00 Completed [facility] [place] Influenza Virus Vaccine 2012-01-21 00:00:00 Completed [facility] [place] Influenza Virus Vaccine 2012-01-21 00:00:00 Completed [facility] [place] Vital Signs Vital Name Observation Time Observation Value Comments S ource Systolic blood pressure 2024-06-05 20:04:00 125 mm[Hg] [facility] Diastolic blood pressure 2024-06-05 20:04:00 67 mm[Hg] [facility] Heart rate 2024-06-05 20:04:00 83 /min [facility] Body temperature 2024-06-05 20:04:00 36.11 Roma [facility] [place] Respiratory rate 2024-06-05 20:04:00 18 /min [facility] [place] Oxygen saturation in Arterial blood by Pulse oximetry 2024-06-05 20:04:00 100 /min [facility] Body height 2024-06-04 01:00:00 160 cm [facility] Body weight 2024-06-03 21:26:00 57.1 kg [facility] BMI 2024-06-03 21:26:00 22.30 kg/m2 [facility] height 2023-11-11 15:00:00 62.5 [in_i] Comm on [facility] weight 2023-11-11 15:00:00 118.2 [lb_av] Co mmon [facility] temperature 2023-11-11 15:00:00 97.8 [degF] Com mon [facility] bmi 2023-11-11 15:00:00 21.27 kg/m2 Comm on [facility] oximetry 2023-11-11 15:00:00 93 % Commo n [facility] respiratory rate 2023-11-11 15:00:00 18 /min Common [facility] blood pressure systolic 2023-11-11 15:00:00 114 mm[Hg] Common [facility] blood pressure diastolic 2023-11-11 15:00:00 68 mm[Hg] [facility] Respiratory rate 2023-05-20 20:47:00 16 /min [facility] [place] Oxygen saturation in Arterial blood by Pulse oximetry 2023-05-20 20:47:00 97 /min [facility] Systolic blood pressure 2023-05-20 16:21:00 136 mm[Hg] [facility] Diastolic blood pressure 2023-05-20 16:21:00 81 mm[Hg] [facility] Heart rate 2023-05-20 16:21:00 81 /min [facility] Body temperature 2023-05-20 16:21:00 36.17 Roma [facility] [place] Body weight 2023-05-20 08:12:00 57.063 kg [facility] BMI 2023-05-20 08:12:00 22.28 kg/m2 [facility] Body height 2023-05-16 20:58:00 160 cm [facility] Systolic blood pressure 2023-03-20 16:43:00 154 mm[Hg] [facility] Diastolic blood pressure 2023-03-20 16:43:00 87 mm[Hg] [facility] Heart rate 2023-03-20 16:43:00 77 /min [facility] Body temperature 2023-03-20 16:43:00 36.39 Roma [facility] [place] Respiratory rate 2023-03-20 16:43:00 16 /min [facility] [place] Body height 2023-03-20 16:43:00 160 cm [facility] Body weight 2023-03-20 16:43:00 51.71 kg [facility] BMI 2023-03-20 16:43:00 20.19 kg/m2 [facility] Oxygen saturation in Arterial blood by Pulse oximetry 2023-03-20 16:43:00 100 /min [facility] Systolic blood pressure 2022-09-17 19:28:58 166 mm[Hg] [facility] Diastolic blood pressure 2022-09-17 19:28:58 103 mm[Hg] [facility] Heart rate 2022-09-17 19:28:58 78 /min [facility] Body temperature 2022-09-17 19:28:58 37.06 Roma [facility] [place] Respiratory rate 2022-09-17 19:28:58 18 /min [facility] [place] Oxygen saturation in Arterial blood by Pulse oximetry 2022-09-17 19:28:58 98 /min [facility] Body height 2022-09-17 16:43:00 160 cm [facility] Body weight 2022-09-17 16:43:00 51.71 kg [facility] BMI 2022-09-17 16:43:00 20.19 kg/m2 [facility] Systolic blood pressure 2022-04-03 19:20:00 106 mm[Hg] [facility] Diastolic blood pressure 2022-04-03 19:20:00 72 mm[Hg] [facility] Heart rate 2022-04-03 19:20:00 104 /min [facility] Body temperature 2022-04-03 19:20:00 36.22 Roma [facility] [place] Respiratory rate 2022-04-03 19:20:00 18 /min [facility] [place] Body height 2022-04-03 19:20:00 162.6 cm [facility] Body weight 2022-04-03 19:20:00 46.72 kg [facility] BMI 2022-04-03 19:20:00 17.68 kg/m2 [facility] Oxygen saturation in Arterial blood by Pulse oximetry 2022-04-03 19:20:00 89 /min [facility] Systolic blood pressure 2021-07-18 20:42:00 174 mm[Hg] [facility] Diastolic blood pressure 2021-07-18 20:42:00 98 mm[Hg] [facility] Heart rate 2021-07-18 20:42:00 104 /min [facility] Body temperature 2021-07-18 20:42:00 35.72 Roma [facility] [place] Body height 2021-07-18 20:42:00 160 cm [facility] Body weight 2021-07-18 20:42:00 56.246 kg [facility] BMI 2021-07-18 20:42:00 21.97 kg/m2 [facility] BP Systolic 2024-06-09 11:29:00 95 mm[Hg] Step hen [facility] You BP Diastolic 2024-06-09 11:29:00 56 mm[Hg] Samm phen F You Weight Measured 2024-06-09 11:29:00 120.20 pounds Delfino F You Height Measured 2024-06-09 11:29:00 63.00 inches Delfino F You Body Temperature 2024-06-09 11:29:00 98.30 degrees Delfino F You Heart Rate 2024-06-09 11:29:00 58.00 /min Araceli en F You Respiratory Rate 2024-06-09 11:29:00 18.00 /min Delfino F You BP Systolic 2024-05-27 08:36:00 136 mm[Hg] Step hen F You BP Diastolic 2024-05-27 08:36:00 86 mm[Hg] Samm phen F You Weight Measured 2024-05-27 08:36:00 125.60 pounds Delfino F You Height Measured 2024-05-27 08:36:00 63.00 inches Delfino F You Body Temperature 2024-05-27 08:36:00 97.80 degrees Delfino [...] Measured 2024-02-07 11:22:00 121.80 pounds Delfino F oYu Height Measured 2024-02-07 11:22:00 63.00 inches Delfino [...] Weight Measured 2022-09-12 09:10:00 118.80 pounds Delfino F You Height Measured 2022-09-12 09:10:00 63.00 inches Delfino F You Body Temperature 2022-09-12 09:10:00 98.10 degrees Delfino F You Heart Rate 2022-09-12 09:10:00 87.00 /min Araceli en F You Respiratory Rate 2022-09-12 09:10:00 18.00 /min Delfino F You BP Systolic 2022-02-28 11:50:00 122 mm[Hg] BP [...] Date / Time Performed Performing Clinician Source IMMUNOGLOBULIN M 2024-06-05 18:43:00 Spenser Chahal [facility] [place] MAGNESIUM 2024-06-05 08:48:00 Essence Erwin [facility] [place] BASIC METABOLIC PANEL (NA, K, CL, CO2, GLUCOSE, BUN, CREATININE, CA) 2024-06-05 08:48:00 Rubén Erwin [facility] [place] CBC WITH DIFF 2024-06-05 08:48:[address] [facility] PROTHROMBIN TIME / INR 2024-06-05 08:48:00 Rubén Choudhury [facility] [place] ACTIVATED PARTIAL THRMPLAS RAMY 2024-06-05 08:48:00 Rubén Erwin [facility] [place] TRANSTHORACIC ECHO (TTE) COMPLETE W/ CONTRAST 2024-06-04 20:05:40 Rubén Erwin [facility] [place] MAGNESIUM 2024-06-04 09:57:00 Essence Erwin [facility] [place] BASIC METABOLIC PANEL (NA, K, CL, CO2, GLUCOSE, BUN, CREATININE, CA) 2024-06-04 09:57:[address] [facility] LIPID PANEL (41230)(TOTAL CHOLESTEROL, TRIGLYCERIDES, HDL) 2024-06-04 09:57:00 Rubén Erwin [facility] [place] CBC WITH DIFF 2024-06-04 09:57:[address] [facility] TROPONIN I 2024-06-04 05:20:00 Essence Erwin [facility] [place] URINALYSIS 2024-06-04 04:26:00 Essence Erwin [facility] [place] URINE DRUG (IMMUNOASSAY) - COMPREHENSIVE DRUG SCREEN 2024-06-04 00:57:00 Rubén Erwin [facility] [place] XR CHEST 1 VW 2024-06-03 23:26:00 Anabell Jones Tuan jacobson [facility] LACTIC ACID WHOLE BLOOD 2024-06-03 23:21:00 Rubén Fowler [facility] [place] MAGNESIUM 2024-06-03 23:06:[address] [facility] TROPONIN I 2024-06-03 23:06:00 Essence Erwin [facility] [place] HEPATIC FUNCTION PANEL (12874) (ALB,T.PRO,BILI T,BU/BC,ALT,AST,ALK PHOS) 2024-06-03 23:06:[address] Rubén Erwin [facility] BASIC METABOLIC PANEL (NA, K, CL, CO2, GLUCOSE, BUN, CREATININE, CA) 2024-06-03 23:06:00 Rubén Erwin [facility] [place] CBC WITH DIFF 2024-06-03 23:06:[address] [facility] GLYCOSYLATED HEMOGLOBIN (A1C) 2024-06-03 23:06:[address] Rubén Erwin [facility] CD4 SUBSET ASSAY 2024-06-03 23:06:[address] [facility] N-TERMINAL PRO-BNP 2024-06-03 23:06:00 Rubén Erwin [facility] [place] HUMAN IMMUNODEFICIENCY VIRUS 1 (HIV-1) BY QUANTITATIVE NAAT 2024-06-03 23:06:00 Rubén Erwin [facility] SYPHILIS IGG/IGM 2024-06-03 23:06:00 Robert Erwin [facility] [place] (1,3)-EHIK-B-XQOJWD (FUNGITELL) 2024-06-03 23:06:00 Rubén Erwin [facility] HB ECG ROUTINE & RHYTHM STRIP 2024-06-03 22:21:34 Rubén Erwin [facility] [place] REFERRAL- REQUEST/RESPONSE 2023-06-26 15:45:25 D octor Unassigned, [place] [facility] [place] BASIC METABOLIC PANEL (NA, K, CL, CO2, GLUCOSE, BUN, CREATININE, CA) 2023-05-20 08:28:00 Dawn Eddy [facility] [place] CBC WITH DIFF 2023-05-20 08:28:00 Dawn Eddy [facility] [place] TROPONIN I 2023-05-19 10:21:00 [facility] PAN[facility] (NA, K, CL, CO2, GLUCOSE, BUN, CREATININE, CA) 2023-05-19 10:21:00 [facility] LIPID PANEL (31746)(TOTAL CHOLESTEROL, TRIGLYCERIDES, HDL) 2023-05-19 10:21:00 James Stacy [facility] [place] CD4 SUBSET ASSAY 2023-05-19 10:21:00 Daniel Arreaga [facility] UREA NITROGEN URINE 2023-05-18 08:30:00 Lefty Abreu [facility] COMP. METABOLIC PANEL (84051) 2023-05-17 18:43:00 Anyi Hearn [facility] [place] CBC WITH DIFF 2023-05-17 18:43:00 Anyi Hearn [facility] URINALYSIS MICROSCOPIC 2023-05-17 14:17:00 Essence Abreu [facility] [place] SODIUM, URINE RANDOM 2023-05-17 14:16:00 Brady [facility] PROTEIN CREAT RATIO URINE RANDOM 2023-05-17 14:16:00 Brady [facility] TROPONIN I 2023-05-17 13:54:00 Lefty Abreu [facility] TRANSTHORACIC ECHO (TTE) COMPLETE 2023-05-17 12:45:00 Kvng Roberson [facility] [place] CREATININE 2023-05-17 03:28:00 Lefty Abreu [facility] TROPONIN I 2023-05-16 21:13:00 Kvng Roberson [facility] ACUTE CARE VENOUS BLOOD GAS 2023-05-16 18:21:00 Anyi Hearn [facility] [place] XR CHEST 1 VW 2023-05-16 18:00:09 Anyi Hearn [facility] LIPASE 2023-05-16 17:40:00 Anyi Hearn [facility] TROPONIN I 2023-05-16 17:40:00 Anyi Hearn [facility] COMP. METABOLIC PANEL (35020) 2023-05-16 17:40:00 Anyi Hearn [facility] [place] CBC WITH DIFF 2023-05-16 17:40:[address] [facility] HB ECG ROUTINE & RHYTHM STRIP 2023-05-16 17:21:17 Anyi Hearn [facility] [place] ASSIGNMENT OF BENEFITS 2023-03-20 17:45:01 Docto r Unassigned, [place] [facility] [place] CONSENT/REFUSAL FOR DIAGNOSIS AND TREATMENT 2023-03-20 16:29:12 Doctor Unassigned, [place] [facility] [place] XR SPINE THORACIC 2 VW 2022-09-17 18:21:00 Vannesa Hobbs [facility] [place] CONSENT/REFUSAL FOR DIAGNOSIS AND TREATMENT 2022-09-17 16:35:17 Doctor Unassigned, [place] [facility] [place] REFERRAL- REQUEST/RESPONSE 2022-06-05 05:01:00 D octor Unassigned, [place] [facility] [place] HSV 1&2, VZV NAAT 2022-04-03 20:43:00 Guerline Garcia [facility] REFERRAL- REQUEST/RESPONSE 2022-01-19 06:01:00 D octor Unassigned, [place] [facility] [place] [address] Ecg Routine Ecg W/least 12 Lds W/i r 2016-10-23 00:00:00 Delfino Orta Plan of Care Planned Activity Planned Date Details Comments Source Goal Plan of Care Note [code = 85354-6] Goal Plan of Care Note [code = 81796-2] Goal Plan of Care Note [code = 98114-0] Goal Plan of Care Note [code = 87945-4] Goal Plan of Care Note [code = 77762-0] Goal Plan of Care Note [code = 48974-5] Goal Plan of Care Note [code = 45388-5] Goal Plan of Care Note [code = 82979-9] Goal Plan of Care Note [code = 65903-8] Goal Plan of Care Note [code = 57303-9] Goal Plan of Care Note [code = 26608-5] Goal Plan of Care Note [code = 83783-2] Goal Plan of Care Note [code = 96932-5] Goal Plan of Care Note [code = 45938-0] Goal Plan of Care Note [code = 70425-3] Goal Plan of Care Note [code = 51129-6] Goal Plan of Care Note [code = 15719-3] Goal Plan of Care Note [code = 63360-2] Goal Plan of Care Note [code = 27367-9] Goal Plan of Care Note [code = 24084-4] Goal Plan of Care Note [code = 83863-9] Goal Plan of Care Note [code = 72484-3] Goal Plan of Care Note [code = 98155-5] Goal Plan of Care Note [code = 78616-3] Goal Plan of Care Note [code = 47253-9] Goal Plan of Care Note [code = 00980-3] Goal Plan of Care Note [code = 02549-3] Goal Plan of Care Note [code = 00864-9] Goal Plan of Care Note [code = 71320-2] Goal Plan of Care Note [code = 72712-9] Goal Plan of Care Note [code = 05636-9] Goal Plan of Care Note [code = 95814-7] Goal Plan of Care Note [code = 78017-0] Goal Plan of Care Note [code = 42559-6] Goal Plan of Care Note [code = 44309-6] Goal Plan of Care Note [code = 15368-7] Goal Plan of Care Note [code = 95308-6] Goal Plan of Care Note [code = 30521-8] Goal Plan of Care Note [code = 96996-1] Goal Plan of Care Note [code = 70129-6] Goal Plan of Care Note [code = 14782-7] Goal Plan of Care Note [code = 80249-1] Goal Plan of Care Note [code = 74121-7] Goal Plan of Care Note [code = 72105-1] Goal Plan of Care Note [code = 57981-5] Goal Plan of Care Note [code = 32929-2] Goal Plan of Care Note [code = 71472-9] Goal Plan of Care Note [code = 24827-9] Goal Plan of Care Note [code = 45651-7] Goal Plan of Care Note [code = 96542-5] Goal Plan of Care Note [code = 39652-1] Goal Plan of Care Note [code = 63482-2] Goal Plan of Care Note [code = 33300-1] Goal Plan of Care Note [code = 13826-3] Goal Plan of Care Note [code = 47259-9] Goal Plan of Care Note [code = 45056-3] Goal Plan of Care Note [code = 38364-0] Goal Plan of Care Note [code = 70943-1] Goal Plan of Care Note [code = 59425-3] Goal Plan of Care Note [code = 58772-1] Goal Plan of Care Note [code = 57736-2] Goal Plan of Care Note [code = 35376-7] Goal Plan of Care Note [code = 66583-5] Goal Plan of Care Note [code = 11579-4] Goal Plan of Care Note [code = 93312-0] Goal Plan of Care Note [code = 03159-3] Goal Plan of Care Note [code = 42172-5] Goal Plan of Care Note [code = 78150-0] Goal Plan of Care Note [code = 34685-7] Goal Plan of Care Note [code = 30091-7] Goal Plan of Care Note [code = 58304-8] Goal Plan of Care Note [code = 06632-3] Goal Plan of Care Note [code = 03921-6] Goal Plan of Care Note [code = 97590-8] Goal Plan of Care Note [code = 61432-6] Goal Plan of Care Note [code = 29300-6] Goal Plan of Care Note [code = 67521-8] Goal Plan of Care Note [code = 29864-4] Goal Plan of Care Note [code = 10658-0] Goal Plan of Care Note [code = 77558-1] Goal Plan of Care Note [code = 62789-5] Goal Plan of Care Note [code = 27280-8] Goal Plan of Care Note [code = 37119-0] Goal Plan of Care Note [code = 50753-0] Goal Plan of Care Note [code = 07597-5] Goal Plan of Care Note [code = 18920-2] Goal Plan of Care Note [code = 99548-6] Goal Plan of Care Note [code = 12558-0] Goal Plan of Care Note [code = 46382-0] Goal Plan of Care Note [code = 96320-5] Goal Plan of Care Note [code = 86385-2] Goal Plan of Care Note [code = 94142-1] Goal Plan of Care Note [code = 16836-9] Goal Plan of Care Note [code = 42589-0] Goal Plan of Care Note [code = 20356-9] Goal Plan of Care Note [code = 74230-2] Goal Plan of Care Note [code = 14748-7] Goal Plan of Care Note [code = 84232-7] Goal Plan of Care Note [code = 96406-4] Goal Plan of Care Note [code = 81102-4] Goal Plan of Care Note [code = 57629-4] Goal Plan of Care Note [code = 37968-9] Goal Plan of Care Note [code = 77127-4] Goal Plan of Care Note [code = 59047-8] Goal Plan of Care Note [code = 74486-3] Goal Plan of Care Note [code = 85153-7] Goal Plan of Care Note [code = 39775-1] Goal Plan of Care Note [code = 55631-8] Goal Plan of Care Note [code = 77411-6] Goal Plan of Care Note [code = 06203-0] Goal Plan of Care Note [code = 20720-1] Goal Plan of Care Note [code = 29985-3] Goal Plan of Care Note [code = 41030-1] Goal Plan of Care Note [code = 88188-8] Goal Plan of Care Note [code = 35511-7] Goal Plan of Care Note [code = 12584-5] Goal Plan of Care Note [code = 52339-5] Goal Plan of Care Note [code = 29387-0] Goal Plan of Care Note [code = 15826-8] Goal Plan of Care Note [code = 10664-2] Goal Plan of Care Note [code = 54225-1] Goal Plan of Care Note [code = 29396-7] Goal Plan of Care Note [code = 38166-3] Goal Plan of Care Note [code = 38373-3] Goal Plan of Care Note [code = 80359-4] Goal Plan of Care Note [code = 66209-2] Goal Plan of Care Note [code = 24097-4] Goal Plan of Care Note [code = 20552-1] Goal Plan of Care Note [code = 97397-8] Goal Plan of Care Note [code = 10140-9] Goal Plan of Care Note [code = 39451-6] Goal Plan of Care Note [code = 86226-9] Goal Plan of Care Note [code = 45990-1] Goal Plan of Care Note [code = 50931-0] Goal Plan of Care Note [code = 19803-5] Goal Plan of Care Note [code = 16238-1] Goal Plan of Care Note [code = 14176-7] Goal Plan of Care Note [code = 10426-1] Goal Plan of Care Note [code = 28805-3] Goal Plan of Care Note [code = 77845-7] Goal Plan of Care Note [code = 34686-1] Goal Plan of Care Note [code = 08863-4] Goal Plan of Care Note [code = 39660-9] Goal Plan of Care Note [code = 95037-5] Goal Plan of Care Note [code = 27838-5] Goal Plan of Care Note [code = 85398-7] Goal Plan of Care Note [code = 96066-9] Goal Plan of Care Note [code = 82787-7] Goal Plan of Care Note [code = 67036-0] Goal Plan of Care Note [code = 67243-7] Goal Plan of Care Note [code = 77850-7] Goal Plan of Care Note [code = 55862-9] Goal Plan of Care Note [code = 87115-6] Goal Plan of Care Note [code = 64318-4] Goal Plan of Care Note [code = 31884-2] Goal Plan of Care Note [code = 48710-7] Goal Plan of Care Note [code = 21534-3] Goal Plan of Care Note [code = 13235-3] Goal Plan of Care Note [code = 56513-7] Goal Plan of Care Note [code = 07237-0] Goal Plan of Care Note [code = 58340-8] Goal Plan of Care Note [code = 68553-6] Goal Plan of Care Note [code = 22621-2] Goal Plan of Care Note [code = 35305-3] Goal Plan of Care Note [code = 88681-2] Goal Plan of Care Note [code = 67669-2] Goal Plan of Care Note [code = 36970-0] Goal Plan of Care Note [code = 15076-2] Goal Plan of Care Note [code = 92418-5] Goal Plan of Care Note [code = 40205-4] Goal Plan of Care Note [code = 96115-9] Goal Plan of Care Note [code = 14765-7] Goal Plan of Care Note [code = 79250-7] Goal Plan of Care Note [code = 22963-2] Encounters Start Date/Time End Date/Time Encounter Type Admission Type Attending Clinicians Care Facility Care Department Encounter ID Source 2023-12-04 10:08:00 Outpatient [facility]ana [facility] [id number] [facility] 2023-11-11 14:53:00 [facility] [id number] [facility] 2023-03-29 10:18:01 [facility] [id number] [facility] 2023-03-28 14:01:00 [facility] [id number] [facility] 2023-03-26 15:20:01 Outpatient Zaria Orellana [facility] [id number] [facility] 2024-06-23 00:00:00 2024-06-23 00:00:00 Outpatient KENJI SAAB [facility] [id number] [facility] 2024-06-19 00:00:00 2024-06-20 02:34:27 Spenser Shukla [facility] [id number] [id number] [facility] 2023-09-24 00:00:00 2024-06-11 15:16:55 Letter (Out) Atif Jackson [facility] ([facility] [id number] [id number] 4.2.7.2.686 [id number] [facility] 2024-06-09 11:18:56 2024-06-09 11:18:56 Outpatient [facility] [id number] Delfino Orta 2024-06-09 00:00:00 2024-06-09 00:00:00 Outpatient Visit [facility] [id number] Delfino Orta 2024-06-08 00:00:00 2024-06-08 14:22:09 Transition of Care Abbi Rivera Christine [address] [id number] [id number] 4.2.7.2.686 [id number] [facility] 2024-06-03 16:20:00 2024-06-05 17:23:00 Outpatient U KENJI LORD [facility] [id number] [facility] 2024-06-03 16:20:00 2024-06-05 17:23:00 Hospital Encounter Pop Kenji S [facility] [id number] [id number] 4.2.7.2.686 [id number] [facility] 2024-06-01 10:21:20 2024-06-01 10:21:20 Outpatient [facility] [id number] Delfino Orta 2024-05-27 08:17:14 2024-05-27 08:17:14 Outpatient [facility] [id number] Delfino Orta 2024-05-27 00:00:00 2024-05-27 00:00:00 Outpatient Visit [facility] [id number] Delfino Orta 2024-05-13 14:25:39 2024-05-13 14:25:39 Outpatient [facility] [id number] Delfino Orta 2024-05-13 00:00:00 2024-05-13 00:00:00 Outpatient Visit [facility] [id number] Delfino Orta 2024-05-07 00:00:00 2024-05-07 00:00:00 Outpatient Visit [facility] [id number] Delfino Orta 2024-05-05 09:58:47 2024-05-05 09:58:47 Outpatient SFA SFA [id number] Delfino Orta 2024-05-05 00:00:00 2024-05-05 00:00:00 Outpatient Visit [facility] [id number] Delfino Orta 2024-04-22 00:00:00 2024-04-22 00:00:00 (TEL) [facility] [id number] [facility] 2024-04-09 09:05:03 2024-04-09 09:05:03 Outpatient SFA SFA [id number] Delfino Orta 2024-04-09 00:00:00 2024-04-09 00:00:00 Outpatient Visit SFA [id number] Delfino Orta 2024-04-08 15:06:50 2024-04-08 15:06:50 Outpatient SFA SFA [id number] Delfino Orta 2024-04-08 00:00:00 2024-04-08 00:00:00 Outpatient Visit SFA SFA [id number] Delfino Orta 2023-06-26 00:00:00 2024-03-28 07:46:41 Orders Only Doctor Unassigned, [place] Doctor Unassigned, [place] [facility] [place] ([place] 1.2.840.114 350.1.13.10 4.2.7.2.686 [id number] [facility] 2024-03-09 08:55:19 2024-03-09 08:55:19 Outpatient [facility] [id number] Delfino Orta 2024-03-09 00:00:00 2024-03-09 00:00:00 Outpatient Visit SFA [id number] Delfino Orta 2024-02-26 11:12:50 2024-02-26 11:12:50 Outpatient [facility] [id number] Delfino Orta 2024-02-26 00:00:00 2024-02-26 00:00:00 Outpatient Visit SFA [id number] [id number]-[id number] Delfino Orta 2024-02-07 11:11:04 2024-02-07 11:11:04 Outpatient [facility] [id number] Delfino Orta 2024-02-07 00:00:00 2024-02-07 00:00:00 Outpatient Visit SFA [id number] Delfino Orta 2024-01-13 09:11:38 2024-01-13 09:11:38 Outpatient [facility] [id number] Delfino Orta 2024-01-13 00:00:00 2024-01-13 00:00:00 Outpatient Visit SFA [id number]-[id number] Delfino Orta 2024-01-01 00:00:00 2024-01-01 00:00:00 Outpatient Visit SFA [id number]-[id number] acd-bd3c1c [id number] Delfino Orta 2023-11-28 00:00:00 2023-11-28 00:00:00 Outpatient Visit SFA [id number] ffe-[id number]-9 [id number] c3cbfb Delfino Orta 2023-11-20 09:01:17 2023-11-20 09:01:17 Outpatient SFA [facility] [id number] Delfino Orta 2023-11-19 10:28:43 2023-11-19 10:28:43 Outpatient SFA [facility] 8 Delfino Orta 2023-11-19 00:00:00 2023-11-19 00:00:00 Outpatient Visit SFA [id number] edee0e Delfino Orta 2023-11-12 00:00:00 2023-11-12 00:00:00 (TEL) STLMLC STLMLC [id number] [facility] 2023-11-11 00:00:00 2023-11-11 00:00:00 OFFICE VISIT NEW PT LEVEL 4 STLMLC STLMLC [id number] [facility] 2023-11-02 11:02:07 2023-11-02 11:02:07 Outpatient SFA SFA 21 Delfino Orta 2023-11-02 00:00:00 2023-11-02 00:00:00 Outpatient Visit SFA [id number]-[id number] Delfino Orta 2023-10-09 14:12:37 2023-10-09 14:12:37 Outpatient SFA SFA [id number] Delfino Orta 2023-10-09 00:00:00 2023-10-09 00:00:00 Outpatient Visit SFA [id number] ac5-c614e2 [id number] Delfino Orta 2023-09-23 13:55:35 2023-09-23 13:55:35 Outpatient SFA SFA [id number] Delfino Orta 2023-09-23 00:00:00 2023-09-23 00:00:00 Outpatient Visit SFA [id number] [id number] Delfino Orta 2023-09-10 09:05:48 2023-09-10 09:05:48 Outpatient SFA SFA [id number] Delfino Orta 2023-09-10 00:00:00 2023-09-10 00:00:00 Outpatient Visit SFA [id number] [id number] Delfino Orta 2023-08-28 13:07:55 2023-08-28 13:07:55 Outpatient SFA SFA 716 Delfino Orta 2023-08-28 00:00:00 2023-08-28 00:00:00 Outpatient Visit SFA [id number] [id number] Delfino Orta 2023-08-22 00:00:00 2023-08-22 00:00:00 Outpatient Visit SFA [id number] bc5-4fb0-9 [id number] Delfino Orta 2023-08-09 14:45:50 2023-08-09 14:45:50 Outpatient SFA SFA 627 Delfino Orta 2023-08-09 00:00:00 2023-08-09 00:00:00 Outpatient Visit SFA [id number] 5fc-42da-a [id number] Delfino Orta 2023-07-24 11:05:48 2023-07-24 11:05:48 Outpatient SFA SFA 611 Delfino Orta 2023-07-24 00:00:00 2023-07-24 00:00:00 Outpatient Visit SFA [id number] 41c-49d6-a [id number]-[id number] Delfino Orta 2023-07-09 00:00:00 2023-07-09 00:00:00 Outpatient Visit SFA [id number]-[id number] Delfino Orta 2023-07-02 00:00:00 2023-07-02 14:33:10 [facility] 1.2.840.114 350.1.13.10 4.2.7.2.686 [id number] [facility] 2023-06-05 13:09:09 2023-06-05 13:09:09 Outpatient SFA SFA 4 Delfino Schumacher [place] 2023-06-04 13:27:22 2023-06-04 13:27:22 Outpatient [facility] [id number] Delfino Schumacher [place] 2023-06-04 00:00:00 2023-06-04 00:00:00 Outpatient Visit SFA [id number] fc5-45eb-a [id number] [id number] Delfino Schumacher [place] 2023-05-21 00:00:00 2023-05-21 00:00:00 Transition of Care Lj Paredes [facility] 1.2.840.114 350.1.13.10 4.2.7.2.686 [id number] [facility] 2023-05-16 12:13:00 2023-05-20 16:40:00 Inpatient X KVNG ROBERSON [facility] [id number] [facility] 2023-05-16 12:13:00 2023-05-20 16:40:00 Hospital Encounter Anyi Hearn David [facility] 1.2.840.114 350.1.13.10 4.2.7.2.686 [id number] [facility] 2023-05-09 13:59:33 2023-05-09 13:59:33 Outpatient [facility] [id number] Delfino Schumacher [place] 2023-04-18 10:12:11 2023-04-18 10:12:11 Outpatient [facility] [id number] Delfino Orta 2023-04-02 09:41:47 2023-04-02 09:41:47 Outpatient [facility] [id number] Delfino Orta 2023-03-20 10:44:00 2023-03-20 12:35:00 Emergency X ANYI HEARN [facility] ERT [id number] [facility] 2023-03-20 10:44:00 2023-03-20 12:35:00 Emergency Anyi Hearn [facility] 1.2.840.114 350.1.13.10 4.2.7.2.686 [id number] [facility] 2023-03-18 10:58:22 2023-03-18 10:58:22 Outpatient [place] [id number] Delfino Orta 2023-03-14 14:37:27 2023-03-14 14:37:27 Outpatient [place] [id number] Dlefino Orta 2023-03-07 13:58:45 2023-03-07 13:58:45 Outpatient [place] [id number] Delfino Orta 2022-12-14 14:53:29 2022-12-14 14:53:29 Outpatient [place] [id number] Delfino Orta 2022-10-04 11:25:10 2022-10-04 11:25:10 Outpatient [place] [id number] Delfino Orta 2022-09-17 11:44:00 2022-09-17 14:31:00 Emergency X GASTON HOBBS [facility] ERT [id number] [facility] 2022-09-17 11:44:00 2022-09-17 14:31:00 Emergency Gaston Hobbs [facility] 1..840.114 350.1.13.10 4.2.7.2.686 [id number] [facility] 2022-09-12 09:01:58 2022-09-12 09:01:58 Outpatient [facility] [place] [id number] Delfino Orta 2022-09-11 00:00:00 2022-09-11 00:00:00 Case Management Kasandra Flores [facility] 1.840.114 350.1.13.10 4.2.7.2.686 [id number] [facility] 2022-08-07 09:45:03 2022-08-07 09:45:03 Outpatient [facility] [id number] Delfino Orta 2022-08-01 13:52:32 2022-08-01 13:52:32 Outpatient [facility] [id number] Delfino Orta 2022-07-18 09:30:00 2022-07-18 09:30:00 Outpatient R CLARITZA JAMISON [facility] [id number] [facility] 2022-07-04 11:11:38 2022-07-04 11:11:38 Outpatient [facility] [id number] Delfino Orta 2022-06-05 00:00:00 2022-06-05 00:00:00 Orders Only Doctor Unassigned, [place] [facility] 1.840.114 350.1.13.10 4.2.7.2.686 [id number] [facility] 2022-05-29 09:31:33 2022-05-29 09:31:33 Outpatient [facility] [id number] Delfino Orta 2022-05-15 13:00:00 2022-05-15 13:00:00 Outpatient R [facility] [id number] [facility] 2022-05-15 09:34:43 2022-05-15 09:34:43 Outpatient [facility] [id number] Delfino Orta 2022-04-19 15:25:24 2022-04-19 15:25:24 Outpatient [facility] [id number] Delfino Orta 2022-04-04 00:00:00 2022-04-04 00:00:00 Case Management Jeanine Almaguer [facility] 1.840.114 350.1.13.10 4.2.7.2.686 [id number] [facility] 2022-04-03 13:00:00 2022-04-03 14:00:00 [facility] 350.1.13.10 4.2.7.2.686 [id number] [facility] 2022-04-03 13:00:00 2022-04-03 13:00:00 Outpatient R GUERO MARTINEZ [facility] [id number] [facility] 2022-04-02 15:14:37 2022-04-02 15:14:37 Outpatient [facility] [id number] Delfino Orta 2022-03-28 13:26:46 2022-03-28 13:26:46 Outpatient [facility] [id number] Delfino Orta 2022-02-28 11:43:30 2022-02-28 11:43:30 Outpatient [facility] [id number] Delfino Orta 2022-02-28 00:00:00 2022-02-28 00:00:00 Outpatient Visit [id number] [id number]-[id number] 2022-02-27 15:30:00 2022-02-27 15:30:00 Outpatient R [facility] [id number] [facility] 2022-02-23 10:25:15 2022-02-23 10:25:15 Outpatient [facility] [id number] Delfino Orta 2022-02-22 00:00:00 2022-02-22 00:00:00 Case Management Jeanine Almaguer [facility] ..114 350.1.13.10 4.2.7.2.686 [id number] [facility] 2022-01-29 00:00:00 2022-01-29 00:00:00 Case Management Jeanie Osman Vincenzo [facility] 1.2.840.114 350.1.13.10 4.2.7.2.686 [id number] [facility] 2022-01-19 13:56:18 2022-01-19 13:56:18 Outpatient [facility] [place] [id number] Delfino Orta 2022-01-19 00:00:00 2022-01-19 00:00:00 Orders Only Doctor Unassigned, [place] [facility] 1.2.840.114 350.1.13.10 4.2.7.2.686 [id number] [facility] 2022-01-19 00:00:00 2022-01-19 00:00:00 Outpatient Visit [id number] -[id number] 727-41cc-8 [id number] b58e4d 2021-11-15 00:00:00 2021-11-15 00:00:00 Case Management Kasandra Flores [facility] 1.2.840.114 350.1.13.10 4.2.7.2.686 [id number] [facility] 2021-11-06 00:00:00 2021-11-06 00:00:00 Outpatient Visit [id number] -[id number]-4b99-8 [id number] [id number] 2021-10-10 09:30:00 2021-10-10 09:30:00 Outpatient R [facility] [id number] [facility] 2021-09-07 00:00:00 2021-09-07 00:00:00 Outpatient ELO BHARDWAJ [facility] [id number] Radha bentley [facility] 2021-08-25 03:29:00 2021-08-25 03:29:00 Outpatient Adams_R DMG [facility] [id number] [facility] 2021-08-07 00:00:00 2021-08-07 00:00:00 Outpatient Visit [id number] [id number] -[id number]-i38 [id number]-[id number] m93-6mw6-5 cb5-d02d18 [id number] 2021-07-18 15:15:00 2021-07-18 16:23:57 Outpatient R APOLINAR WEBER [facility] [id number] [facility] 2021-07-18 15:15:00 2021-07-18 16:23:57 Office Visit Pgy2 Apolinar Weber [facility] 1.840.114 350.1.13.10 4.2.7.2.686 [id number] [facility] 2021-07-18 15:15:00 2021-07-18 16:23:57 Outpatient R APOLINAR WEBER [facility] [id number] [facility] 2021-06-27 00:00:00 2021-06-27 00:00:00 Telephone Enedina Mccarty [facility] 1.840.114 350.1.13.10 4.2.7.2.686 [id number] [facility] 2021-06-15 00:00:00 2021-06-15 00:00:00 Transition of Care Lj Paredes 1.840.114 350.1.13.10 4.2.7.2.686 [id number] [facility] 2021-06-09 10:48:00 2021-06-14 17:22:00 Inpatient X NADINE [facility] [id number] [facility] 2021-06-09 10:48:00 2021-06-14 17:22:00 Hospital Encounter Toby Donohue, Billy Cherry [facility] 1.2.840.114 350.1.13.10 4.2.7.2.686 [id number] [facility] 2021-06-12 00:00:00 2021-06-12 00:00:00 Case Management Evette Dunn [facility] 1.2.840.114 350.1.13.10 4.2.7.2.686 [id number] [facility] 2021-06-08 10:46:00 2021-06-08 16:28:00 Emergency X KENNEDI BLUE [facility] ERT [id number] [facility] 2021-06-08 10:46:00 2021-06-08 16:28:00 Emergency Kennedi Blue [facility] 1.2.840.114 350.1.13.10 4.2.7.2.686 [id number] [facility] 2021-05-24 00:00:00 2021-05-24 00:00:00 Letter (Out) Mikael Quiroz [facility] 1.2.840.114 350.1.13.10 4.2.7.2.686 [id number] [facility] 2021-05-23 00:00:00 2021-05-23 00:00:00 Orders Only Doctor Unassigned, [place] [facility] 1.2.840.114 350.1.13.10 4.2.7.2.686 [id number] [facility] 2021-05-16 09:00:00 2021-05-16 09:00:00 Outpatient Dean_Robert DMG [facility] [id number] [facility] 2021-05-01 11:30:00 2021-05-01 12:47:00 Emergency X LJ LIANG [facility] ERT [id number] [facility] 2021-05-01 11:30:00 2021-05-01 12:47:00 Emergency Lj Liang [facility] 1.2.840.114 350.1.13.10 4.2.7.2.686 [id number] [facility] 2020-10-04 11:44:00 2020-10-04 12:54:00 Emergency X MARGARET NUNEZ [facility] ERT [id number] [facility] 2020-10-04 11:44:00 2020-10-04 12:54:00 Emergency Margaret Nunez [facility] 1.2.840.114 350.1.13.10 4.2.7.2.686 [id number] [facility] 2020-09-29 00:00:00 2020-09-29 00:00:00 Telephone Bonny Morris [facility] 1.2.840.114 350.1.13.10 4.2.7.2.686 [id number] [facility] 2020-09-22 14:30:00 2020-09-22 14:30:00 Outpatient R BONNY MORRIS [facility] [id number] [facility] 2020-08-25 11:32:00 2020-08-25 11:32:00 Outpatient Adams_R DMG [facility] [id number] [facility] 2020-08-25 09:28:00 2020-08-25 10:21:00 Emergency Margaret Nunez [facility] 1.2.840.114 350.1.13.10 4.2.7.2.686 [id number] [facility] 2020-08-25 09:28:00 2020-08-25 10:21:00 Emergency X MARGARET NUNEZ [facility] ERT [id number] [facility] 2020-08-24 14:43:00 2020-08-24 15:59:00 Emergency Terri Elliott [facility] 1..840.114 350.1.13.10 4.2.7.2.686 [id number] [facility] 2020-08-24 14:43:00 2020-08-24 15:59:00 Emergency X [facility] ERT [id number] [facility] 2020-08-24 00:00:00 2020-08-24 00:00:00 Telephone Christophe, Bonny KAgHAg [facility] 1..840.114 350.1.13.10 4.2.7.2.686 [id number] [facility] 2020-08-12 15:00:00 2020-08-12 15:00:00 Outpatient R BONNY MORRIS [facility] [id number] [facility] 2020-08-12 00:00:00 2020-08-12 00:00:00 Telephone Bonny MorrisHAg [facility] 1..840.114 350.1.13.10 4.2.7.2.686 [id number] [facility] 2020-08-04 01:58:00 2020-08-04 01:58:00 [place] [id number] [facility] 2020-07-28 00:00:00 2020-07-28 00:00:00 Telephone Bonny MorrisHAg [facility] 1..840.114 350.1.13.10 4.2.7.2.686 [id number] [facility] 2020-07-28 00:00:00 2020-07-28 00:00:00 Orders Only Doctor Unassigned, [place] [facility] 1.2.840.114 350.1.13.10 4.2.7.2.686 [id number] [facility] 2020-07-27 00:00:00 2020-07-27 00:00:00 Telephone Bonny Morris [facility]icky[facility] 1.2.840.114 350.1.13.10 4.2.7.2.686 [id number] [facility] 2020-07-27 00:00:00 2020-07-27 00:00:00 Telephone Bonny Morris MickyAg [facility] 1.2.840.114 350.1.13.10 4.2.7.2.686 [id number] [facility] 2020-07-26 14:25:36 2020-07-26 15:12:16 Office Visit Bonny Morris TerriAgMarshaAg [facility] 1.2.840.114 350.1.13.10 4.2.7.2.686 [id number] [facility] 2020-07-26 14:30:00 2020-07-26 14:30:00 Outpatient R BONNY MORRIS [facility] [id number] [facility] 2020-07-20 10:25:00 2020-07-20 15:52:00 Emergency Dawn Blanco S [facility] 1.2.840.114 350.1.13.10 4.2.7.2.686 [id number] [facility] 2020-07-20 10:16:00 2020-07-20 10:16:00 Emergency X [facility] ERT [id number] [facility] 2020-07-18 01:42:00 2020-07-18 01:42:00 [place] [id number] 606 [facility] 2020-07-01 13:47:00 2020-07-01 16:34:00 Emergency Josse Lockhart [facility] 1.2.840.114 350.1.13.10 4.2.7.2.686 [id number] [facility] 2020-07-01 13:47:00 2020-07-01 16:34:00 Emergency X JOSSE LOCKHART [facility] ERT [id number] [facility] 2020-07-01 13:47:00 2020-07-01 16:34:00 Emergency Josse Lockhart [facility] 1.2.840.114 350.1.13.10 4.2.7.2.686 [id number] Results Test Description Test Time Test Comments Results Result Co mments Source [facility] 09:27:04* Test Item Value Reference Range Interpretation Comme nts MAGNESIUM (test code = 4745639812) 2.2 mg/dL 1.7-2.4 Lab Interpretation (test cod e = 24983-6) Normal [facility] Met[facility] (NA, K, CL, CO2, GLUCOSE, BUN, CREATININE, CA)2024-06-05 09:27:04* Test Item Value Reference Range Interpretation Comme nts NA (test code = 5831511178) 138 mmol/L 135-145 K (test code = 4286831063) 4.5 mmol/L 3.5-5.0 CL (test code = 1052404111) 109 mmol/L 98-108 H CO2 TOTAL (test code = 9875023437) 23 mmol/L 23-31 AGAP (test code = 7506359615) 6 2-16 BUN (test code = 9544784828) 37 mg/dL 7-23 H GLUCOSE (test code = 9893642593) 96 mg/dL 70-110 CREATININE (test code = 2160-0) 1.58 mg/dL 0.50-1.04 H CALCIUM (test code = 7760572772) 9.8 mg/dL 8.6-10.6 eGFR (test code = 35770-9) 37.1 mL/min/1.73m2 CKD-EPI eGFR (2020). Assuming creatinine has been stable day-to-day for at least three months, the eGFR indicates Category G3b (30 - 44 mL/min/1.73 m2) Lab Interpretation (test code = 12363-7) Abnormal [facility] Atlanta[facility]th[facility] Time / QCG0334-75-64 09:10:41* Test Item Value Reference Range Interpretation Comme [facility] PROTIME PATIENT (test code = 5964-2) 10.8 10.1-12.6 INR (test code = 6301-6) 1 <=4.5 Normal INR <1.1; Warfarin Therapeutic range 2.0 to 3.0 or 2.5 to 3.5, depending upon the indications. Lab Interpretation (test code = 46737-1) Normal [facility]2025-04-25 09:10:41* Test Item Value Reference Range Interpretation Comme [facility] APTT Patient (test code = 3173-2) 26 -36 Lab Interpretation (test cod e = 68248-6) Normal [facility] Atlanta[facility] with Tirr7627-86-57 09:04:37* Test Item Value Reference Range Interpretation Comme [facility] WBC (test code = 6690-2) 6.01 4.30-11.10 RBC (test code = 789-8) 3.35 3.93-5.25 L HGB (test code = 718-7) 11 g/dL 11.6-15.0 L HCT (test code = 4544-3) 33.4 % 35.7-45.2 L MCV (test code = 787-2) 99.7 fL 80.6-95.5 H MCH (test code = 785-6) 32.8 pg 25.9-32.8 MCHC (test code = 786-4) 32.9 g/dL 31.6-35.1 RDW-SD (test code = 79307-5) 51.3 fL 39.0-49.9 H RDW-CV (test code = 788-0) 14.3 % 12.0-15.5 PLT (test code = 777-3) 193 166-358 MPV (test code = 21880-9) 10.8 fL 9.5-12.9 NRBC/100 WBC (test code = 6960201311) 0 0.0-10.0 NRBC x10^3 (test code = 2932607970) See_Comment [Automated messa ge] The system which generated this result transmitted reference range: 10*3/?L. The reference range was not used to interpret this result as normal/abnormal. GRAN MAT (NEUT) % (test code = 770-8) 73.1 % IMM GRAN % (test code = 2437510727) 0.3 % LYMPH % (test code = 736-9) 16.5 % MONO % (test code = 5905-5) 8.3 % EOS % (test code = 713-8) 0.8 % BASO % (test code = 706-2) 1 % GRAN MAT x10^3(ANC) (test code = 0999615418) 4.39 10*3/uL 1.88-7.09 IMM GRAN x10^3 (test code = 5078268154) 0.00-0.06 LYMPH x10^3 (test code = 731-0) 0.99 10*3/uL 1.32-3.29 L MONO x10^3 (test code = 742-7) 0.5 10*3/uL 0.33-0.92 EOS x10^3 (test code = 711-2) 0.05 10*3/uL 0.03-0.39 BASO x10^3 (test code = 704-7) 0.06 10*3/uL 0.01-0.07 Lab Interpretation (test code = 77059-9) [facility] 22:45:29* Test Item Value Reference Range Interpretation Comme nts Height (test code = 2247556167) 63 in Weight (test code = 9304029708) 125 lbs Systolic BP (test code = 9961243272) 112 mmHg Diastolic BP (test code = 5318671145) 72 mmHg Heart Rate (test code = 9358245661) 89 bpm LVOT stroke volume (test code = 2136137682) 66.2 cm3 EF(Teich) (test code = 9122214776) 85.3 % LVIDD (test code = 6573270053) 3.3 cm LVIDS (test code = 8063686838) 1.54 cm Left Ventricular End Systolic Volume by Teichholz Method (test code = 2982916) 6.5 mL Left Ventricular End Diastolic Volume by Teichholz Method (test code = 4015525) 44.2 mL IVS (test code = 8429786414) 1.77 cm LVPWD (test code = 7308458345) 1.31 cm LVOT diameter (test code = 6684683021) 1.71 cm LVOT area (test code = 9145549160) 2.29 cm2 FS (test code = 2261471488) 53 % MV Peak E Barber (test code = 9590488381) 70.6 cm/s E wave decelartion time (test code = 8177565475) 0.15 s MV E/e' septal (test code = 6454701215) 4.3 cm/s LA Volume Index (BP) (test code = 0980952458) 32.1 mL/m2 LA volume (BP) (test code = 8424338952) 50.8 mL LVOT peak barber (test code = 7908932436) 151.9 cm/s LVOT mn grad (test code = 7888755288) 4.3 mmHg LV GLS Endo Peak A2C () (test code = 1829624307) -7.6 % LV GLS Endo Peak A3C () (test code = 9686852551) -7 % LV GLS Endo Peak A4C () (test code = 4237956265) -7.8 % LV GLS Endo Peak Avg () (test code = 7596300583) -7.5 % BSA (test code = 1546870815) 1.58 m2 LAV(MOD-sp2) (test code = 1209955810) 51 mL LAV(MOD-sp4) (test code = 7419042201) 46.3 mL Tapse (test code = 2472612207) 1.73 cm Aortic valve mean velocity (test code = 3480955154) 217 cm/s Ao peak barber (test code = 7764408965) 322.8 cm/s Ao VTI (test code = 5921204882) 54.8 cm AV LVOT peak gradient (test code = 0088512970) 9.2 mmHg LVOT peak VTI (test code = 6462240131) 28.9 cm AV area by cont VTI (test code = 2849527375) 1.2 cm2 AV area peak barber (test code = 9648818554) 1.1 cm2 LV V1 mean (test code = 6117781805) 92.2 cm/s Ao max PG (test code = 1494978680) 41.7 mm[Hg] MV Prop V (test code = 8759557339) 80.1 cm/s Ao root diam (test code = 9200685551) 2.9 cm AV peak gradient (test code = 5057354532) 41.7 mmHg AV valve area (test code = 0506254657) 1.21 cm2 AV mean gradient (test code = 5638296734) 21.7 mmHg Aortic root (test code = 4440944167) 2.9 cm Ao root annulus (test code = 9903566153) 2.9 cm PW (test code = 6960364226) 1.31 cm 0.6-1.1 EF - 2D (test code = 11834098) 85.3 % Interventricular Septum Diastolic Thickness by 2D (test code = 0776002) 1.77 cm GLS (test code = 1965205370) -8 % Radiology Study observation (narrative) (test code = 38802-5) GARRY (test code = GARRY) ?Left?Ventricle: Left ventricle size is normal. severe basilar septal thickening, measured 1.7- 1.8 cm. Posterior LV wall is 0.8cm. ?There is severe LV hypertrophy more pronounced in the basilar septum. ?Strain is also decreased in the pattern of hypertrophy. Consider cardiac MRI ?for further evaluation to rule out hypertrophic cardiomyopathy. Normal systolic function with a visually estimated EF of 60-65%. Global longitudinal strain is reduced with a value of -8%. There is grade 1 diastolic dysfunction. Normal left ventricular filling pressure. There is intracavitary gradient, maximum of 20mmhg. There is no evidence of LVOT obstruction. ?Aortic?Valve: Moderately thickened cusps. Moderately calcified cusps. No transvalvular regurgitation. Consistent with moderate aortic stenosis. AV mean gradient is 21.7 mmHg. AV peak velocity is 322.8 cm/s. AV area by continuity VTI is 1.2 cm2. ?Tricuspid?Valve: Mild transvalvular regurgitation. Right ventricular systolic pressure is 45-50 mmHg. ?IVC/SVC: IVC normal in size and respiratory variation. ?Pericardium: No pericardial effusion. Left VentricleLeft ventricle size is normal. severe basilar septal thickening, measured 1.7- 1.8 cm. Posterior LV wall is 0.8cm. There is severe LV hypertrophy more pronounced in the basilar septum. Strain is also decreased in the pattern of hypertrophy. Consider cardiac MRI for further evaluation to rule out hypertrophic cardiomyopathy. Normal systolic function with a visually estimated EF of 60-65%. Global longitudinal strain is reduced with a value of -8%. There is grade 1 diastolic dysfunction. Normal left ventricular filling pressure. There is intracavitary gradient, maximum of 20mmhg. There is no evidence of LVOT obstruction.Right VentricleRight ventricle size is normal. Normal systolic function.Left AtriumLeft atrium size is normal. Left atrium volume index is 32.1 mL/m2.Right AtriumRight atrium size is normal.IVC/SVCIVC normal in size and respiratory variation.Mitral ValveMild mitral annular calcification. No transvalvular regurgitation. No stenosis.Tricuspid ValveTricuspid valve structure is normal. Mild transvalvular regurgitation. Right ventricular systolic pressure is 45-50 mmHg. No stenosis.Aortic ValveModerately thickened cusps. Moderately calcified cusps. No transvalvular regurgitation. Consistent with moderate aortic stenosis. AV mean gradient is 21.7 mmHg. AV peak velocity is 322.8 cm/s. AV area by continuity VTI is 1.2 cm2.Pulmonic ValveNot well visualized. No transvalvular regurgitation. No stenosis.Ascending AortaNormal sized annulus and sinus of Valsalva.PericardiumTh e pericardium is normal. No pericardial effusion.Study DetailsStudy quality was adequate. A complete echocardiogram was performed using 2D, color flow Doppler, spectral Doppler and strain. The apical, parasternal and subcostal views were obtained. 3 mL of Optison ultrasound enhancing agent used. Patient exhibited sinus rhythm. [facility] Immunodeficiency Virus 1 (Hiv-1) by Quantitative [id number] 22:24:52* Test Item Value Reference Range Interpretation Comme nts HIV-1 Quantitative NAAT - copies/mL (test code = 86699-7) 38 Not Detected Copies/mL H HIV-1 Quantitative Interpretation (test code = 69552-0) Detected Not Detected A GARRY (test code = GARRY) The Aptima HIV-1 Q uant assay is an FDA-approved nucleic acid amplification test (NAAT) for the quantitation of human immunodeficiency virus type 1 (HIV-1) RNA in human plasma from HIV-1 infected individuals. ?It is intended for use as an aid in monitoring the effects of antiretroviral treatment. ?It is not approved for use as a donor screening test for HIV-1 or as a diagnostic test to confirm the presence of HIV-1 infection. The quantitative range of this assay is 1.47 - 7.00 log copies/mL or 30 - 10,000,000 copies/mL. An interpretation of "Not Detected" does not rule out the presence of inhibitors in the patient specimen or HIV-1 RNA concentration below the level of detection of the test. ?Care should be taken when interpreting any single viral load determination. Detected, not Quantifiable: HIV-1 RNA detected, but at a level below 30 copies/mL (1.47 log copies/mL). ?HIV-1 RNA concentration is below the lower limit of quantitation of the assay. Indeterminate: Error indicated in the generation of the result. ?Please submit a new specimen for repeat testing if clinically indicated. Lab Interpretation (test code = 14136-2) Abnormal [facility] Atlanta[facility] (81191)(Total Cholesterol, Triglycerides, HDL)2024-06-04 19:54:26* Test Item Value Reference Range Interpretation Comme nts CHOL (test code = 1695978098) 204 mg/dL 120-200 H HDL (test code = 4667852279) 102 mg/dL >=50 HDLC RATIO (test code = 6529139017) 2 <=4.5 TRIG (test code = 1949406744) 52 mg/dL 30-170 LDL CHOL (test code = 98401-0) 92 mg/dL <=160 VLDL (test code = 5025593743) 10 mg/dL 5-60 Lab Interpretation (test cod e = 68073-1) Abnormal [facility] AtlantaCd4 Subset [id number] 15:26:02* Test Item Value Reference Range Interpretation Comme nts CD4 % (test code = 8123-2) 18 % 31-60 L CD4 Absolute (test code = 53188-7) 41 410-1590 L Lab Interpretation (test cod e = 94519-1) Abnormal [facility] AtlantaSyphilis [id number] 14:10:37* Test Item Value Reference Range Interpretation Comme nts Syphilis IgG/IgM (test code = 98988-1) Nonreactive Nonreactive Syphilis Serology Interpretation (test code = 46664-8) No serologic evidence of syphilis. If recent exposure is suspected, retest in 2 to 4 weeks. GARRY (test code = GARRY) ? [facility] AtlantaMagnesium2025-04-24 10:23:58* Test Item Value Reference Range Interpretation Comme nts MAGNESIUM (test code = 4706237501) 2.8 mg/dL 1.7-2.4 H Lab Interpretation (test cod e = 92607-4) Abnormal [facility] Metabolic Panel (NA, K, CL, CO2, GLUCOSE, BUN, CREATININE, CA)2024-06-04 10:23:58* Test Item Value Reference Range Interpretation Comme nts NA (test code = 9465576775) 136 mmol/L 135-145 K (test code = 9816874675) 4.6 mmol/L 3.5-5.0 CL (test code = 3356232431) 108 mmol/L 98-108 CO2 TOTAL (test code = 7625578105) 18 mmol/L 23-31 L AGAP (test code = 4369775411) 10 2-16 BUN (test code = 3015086310) 32 mg/dL 7-23 H GLUCOSE (test code = 5552880756) 163 mg/dL 70-110 H CREATININE (test code = 2160-0) 1.36 mg/dL 0.50-1.04 H CALCIUM (test code = 5951244763) 9.8 mg/dL 8.6-10.6 eGFR (test code = 61288-7) 44.4 mL/min/1.73m2 Lab Interpretation (test cod e = 86337-0) Abnormal [facility] AtlantaCb with [id number] 10:13:16* Test Item Value Reference Range Interpretation Comme nts WBC (test code = 6690-2) 3.06 4.30-11.10 L RBC (test code = 789-8) 3.47 3.93-5.25 L HGB (test code = 718-7) 11.3 g/dL 11.6-15.0 L HCT (test code = 4544-3) 33.9 % 35.7-45.2 L MCV (test code = 787-2) 97.7 fL 80.6-95.5 H MCH (test code = 785-6) 32.6 pg 25.9-32.8 MCHC (test code = 786-4) 33.3 g/dL 31.6-35.1 RDW-SD (test code = 02168-4) 49.1 fL 39.0-49.9 RDW-CV (test code = 788-0) 14 % 12.0-15.5 PLT (test code = 777-3) 194 166-358 MPV (test code = 89353-2) 10.9 fL 9.5-12.9 NRBC/100 WBC (test code = 5457656994) 0 0.0-10.0 NRBC x10^3 (test code = 8419441797) See_Comment [Automated messa ge] The system which generated this result transmitted reference range: 10*3/?L. The reference range was not used to interpret this result as normal/abnormal. GRAN MAT (NEUT) % (test code = 770-8) 84.8 % IMM GRAN % (test code = 1822224849) 0.7 % LYMPH % (test code = 736-9) 9.2 % MONO % (test code = 5905-5) 4.6 % EOS % (test code = 713-8) 0 % BASO % (test code = 706-2) 0.7 % GRAN MAT x10^3(ANC) (test code = 4995860189) 2.6 10*3/uL 1.88-7.09 IMM GRAN x10^3 (test code = 7060455504) 0.00-0.06 LYMPH x10^3 (test code = 731-0) 0.28 10*3/uL 1.32-3.29 L MONO x10^3 (test code = 742-7) 0.14 10*3/uL 0.33-0.92 L EOS x10^3 (test code = 711-2) 0.03-0.39 L BASO x10^3 (test code = 704-7) 0.01-0.07 Lab Interpretation (test code = 46867-1) [id number] 06:36:35* Test Item Value Reference Range Interpretation Comme nts TROPONIN I (test code = 2147966364) 0.092 ng/mL <=0.034 H GARRY (test code = [...] of biotin. Lab Interpretation (test code = 93002-7) Abnormal [facility] AtlantaXR Chest 1 [id number] 04:50:33Exam: Chest (1 View), 06/03/2024 5:45 PM. Ordering Physician: KENJI LORD. History: sob . Technique: One view of the chest. Comparison: Chest radiograph 06/08/2021. Findings: No focal consolidation. No pneumothorax or effusion. Normal size of thecardiac silhouette. Atherosclerosis of the aorta. No acute osseous finding. [facility] AtlantaGlycosylated Hemoglobin [id number] 03:47:18 * Test Item Value Reference Range Interpretation Comme [facility] HGB A1C (test code = 4548-4) 5.8 % 4.0-5.7 H GARRY (test code = GARYR) Reference RangesNormal: <5.7%Prediabetes: 5.7 - 6.4%Diabetes: > 6.5% Lab Interpretation (test code = 12729-2) [facility] [id number] 00:00:09* Test Item Value Reference Range Interpretation Comme nts TROPONIN I (test code = 5898390031) 0.12 ng/mL <=0.034 H GARRY (test code = [...] of biotin. Lab Interpretation (test code = 89706-2) Abnormal [facility] AtlantaCOMPREHENSIVE METABOLIC [id number] 00:00:00* Test Item Value Reference Range Interpretation Comme nts GLUCOSE (test code = 2345-7) 96 mg/dL UREA NITROGEN (BUN) (test code = 3094-0) 18 mg/dL CREATININE (test code = 2160-0) 1.21 mg/dL EGFR (test code = 15024-0) 51 mL/min/1.73m2 BUN/CREATININE RATIO (test code = 3097-3) 15 (calc) SODIUM (test code = 2951-2) 143 mmol/L POTASSIUM (test code = 2823-3) 4.2 mmol/L CHLORIDE (test code = 2075-0) 110 mmol/L CARBON DIOXIDE (test code = 8-9) 22 mmol/L CALCIUM (test code = 96919-4) 11.1 mg/dL PROTEIN, TOTAL (test code = 2885-2) 8.8 g/dL ALBUMIN (test code = 1751-7) 4.5 g/dL GLOBULIN (test code = 74200-9) 4.3 g/dL(calc) ALBUMIN/GLOBULIN RATIO (test code = 1759-0) 1.0 (calc) BILIRUBIN, TOTAL (test code = 1975-2) 0.8 mg/dL ALKALINE PHOSPHATASE (test code = 6768-6) 85 U/L AST (test code = 1920-8) 21 U/L ALT (test code = 1742-6) 14 U/L Delfino Schumacher AustinHEMOGLOBIN [id number] 00:00:00* Test Item Value Reference Range Interpretation Comme nts HEMOGLOBIN A1c (test code = 4548-4) 6.2 % Delfino OrtaLIPID [id number] 00:00:00* Test Item Value Reference Range Interpretation Comme nts CHOLESTEROL, TOTAL (test cod e = 2093-3) 215 mg/dL HDL CHOLESTEROL (test code = 2085-9) 123 mg/dL TRIGLYCERIDES (test code = 2571-8) 70 mg/dL LDL-CHOLESTEROL (test code = 95208-0) 77 mg/dL(calc) CHOL/HDLC RATIO (test code = 9830-1) 1.7 (calc) NON HDL CHOLESTEROL (test co de = 50110-5) 92 mg/dL(calc) Delfino OrtaCBC (INCLUDES DIFF/PLT)2024-06-04 00:00:00* Test Item Value Reference Range Interpretation Comme nts WHITE BLOOD CELL COUNT (test code = 6690-2) 5.7 Thousand/uL RED BLOOD CELL COUNT (test code = 789-8) 3.98 Million/uL HEMOGLOBIN (test code = 718-7) 13.1 g/dL HEMATOCRIT (test code = 4544-3) 40.4 % MCV (test code = 787-2) 101.5 fL MCH (test code = 785-6) 32.9 pg MCHC (test code = 786-4) 32.4 g/dL RDW (test code = 788-0) 13.0 % PLATELET COUNT (test code = 777-3) 196 Thousand/uL MPV (test code = 776-5) 11.6 fL ABSOLUTE NEUTROPHILS (test code = 751-8) 4207 cells/uL ABSOLUTE BAND NEUTROPHILS (test code = 57332-2) DNR cells/uL ABSOLUTE METAMYELOCYTES (yohannes t code = 09046-0) DNR cells/uL ABSOLUTE MYELOCYTES (test code = 59964-1) DNR cells/uL ABSOLUTE PROMYELOCYTES (test code = 18738-8) DNR cells/uL ABSOLUTE LYMPHOCYTES (test code = 731-0) 1003 cells/uL ABSOLUTE MONOCYTES (test cod e = 742-7) 410 cells/uL ABSOLUTE EOSINOPHILS (test code = 711-2) 29 cells/uL ABSOLUTE BASOPHILS (test cod e = 704-7) 51 cells/uL ABSOLUTE BLASTS (test code = 09452-2) DNR cells/uL ABSOLUTE NUCLEATED RBC (test code = 90804-6) DNR cells/uL NEUTROPHILS (test code = 770-8) 73.8 % BAND NEUTROPHILS (test code = 764-1) DNR % METAMYELOCYTES (test code = 740-1) DNR % MYELOCYTES (test code = 749-2) DNR % PROMYELOCYTES (test code = 783-1) DNR % LYMPHOCYTES (test code = 736-9) 17.6 % REACTIVE LYMPHOCYTES (test code = 93869-1) DNR % MONOCYTES (test code = 5905-5) 7.2 % EOSINOPHILS (test code = 713-8) 0.5 % BASOPHILS (test code = 706-2) 0.9 % BLASTS (test code = 709-6) DNR % NUCLEATED RBC (test code = 12707-1) DNR /100WBC COMMENT(S) (test code = 8251-1) DNR Delfino OrtaPTH, INTACT (ICMA) AND IONIZED [id number] 00:00:00* Test Item Value Reference Range Interpretation Comme nts PARATHYROID HORMONE, INTACT (test code = 2731-8) 71 pg/mL CALCIUM (test code = 46661-5) 11.1 mg/dL CALCIUM, IONIZED (test code = 30610-2) 5.9 mg/dL Delfino Schumacher AustinPHOSPHATE ( PHOSPHORUS)2024-06-04 00:00:00* Test Item Value Reference Range Interpretation Comme nts PHOSPHATE ( PHOSPHORUS) (t est code = 2777-1) 2.6 mg/dL Delfino OrtaHCV RNA, QUANTITATIVE REAL TIME [id number] 00:00:00* Test Item Value Reference Range Interpretation Comme nts HCV RNA, QUANTITATIVE REAL TIME PCR (test code = 49561-8) <15 NOT DETECTED IU/mL HCV RNA, QUANTITATIVE REAL TIME PCR (test code = 98478-5) <1.18 NOT DETECTED LogIU/mL Delfino OrtaLYMPHOCYTE SUBSET PANEL [id number] 00:00:00* Test Item Value Reference Range Interpretation Comme nts % CD4 (test code = 8123-2) 23 % ABSOLUTE CD4+ CELLS (test co de = 48948-2) 212 cells/uL % CD8 (test code = 8101-8) 57 % ABSOLUTE CD8+ CELLS (test co de = 11052-7) 534 cells/uL CD4/CD8 RATIO (test code = 10917-7) 0.40 ABSOLUTE LYMPHOCYTES (test c ode = 731-0) 943 cells/uL COMMENT(S) (test code = 8251-1) DNR Delfino Schumacher [facility] WITH [id number] 23:59:18* Test Item Value Reference Range Interpretation Comme nts WBC (test code = 6690-2) 3.24 4.30-11.10 L RBC (test code = 789-8) 3.77 3.93-5.25 L HGB (test code = 718-7) 12.5 g/dL 11.6-15.0 HCT (test code = 4544-3) 36.9 % 35.7-45.2 MCV (test code = 787-2) 97.9 fL 80.6-95.5 H MCH (test code = 785-6) 33.2 pg 25.9-32.8 H MCHC (test code = 786-4) 33.9 g/dL 31.6-35.1 RDW-SD (test code = 96306-7) 50.2 fL 39.0-49.9 H RDW-CV (test code = 788-0) 13.9 % 12.0-15.5 PLT (test code = 777-3) 224 166-358 MPV (test code = 90872-9) 10.8 fL 9.5-12.9 NRBC/100 WBC (test code = 3095765646) 0 0.0-10.0 NRBC x10^3 (test code = 4752017027) See_Comment [Automated messa ge] The system which generated this result transmitted reference range: 10*3/?L. The reference range was not used to interpret this result as normal/abnormal. GRAN MAT (NEUT) % (test code = 770-8) 90.5 % IMM GRAN % (test code = 7516006278) 0.3 % LYMPH % (test code = 736-9) 7.1 % MONO % (test code = 5905-5) 1.2 % EOS % (test code = 713-8) 0 % BASO % (test code = 706-2) 0.9 % GRAN MAT x10^3(ANC) (test code = 7269908759) 2.93 10*3/uL 1.88-7.09 IMM GRAN x10^3 (test code = 4892373081) 0.00-0.06 LYMPH x10^3 (test code = 731-0) 0.23 10*3/uL 1.32-3.29 L MONO x10^3 (test code = 742-7) 0.04 10*3/uL 0.33-0.92 L EOS x10^3 (test code = 711-2) 0.03-0.39 L BASO x10^3 (test code = 704-7) 0.03 10*3/uL 0.01-0.07 Lab Interpretation (test code = 81642-0) Abnormal [facility] AtlantaN-TERMINAL [id number] 23:47:58* Test Item Value Reference Range Interpretation Comme nts NT-proBNP (test code = 87183-6) 1750 pg/mL <=125 H GARRY (test code = GARRY) Positive: Heart Failure Likely Lab Interpretation (test code = 67796-0) Abnormal [facility] AtlantaLactic Acid Whole [id number] 23:35:25* Test Item Value Reference Range Interpretation Comme nts LACTIC ACID (test code = 0803081800) 1.78 mmol/L 0.50-2.20 Lab Interpretation (test cod e = 12139-2) Normal [facility] AtlantaHEPATIC FUNCTION PANEL (54995) (ALB,T.PRO,BILI T,BU/BC,ALT,AST,ALK PHOS)2024-06-03 23:35:15* Test Item Value Reference Range Interpretation Comme nts TOTAL BILI (test code = 5436008099) 0.6 mg/dL 0.1-1.1 BILI UNCON (test code = 5776262210) 0.5 mg/dL 0.1-1.1 BILI CONJ (test code = 7129470471) 0 mg/dL 0.0-0.3 T PROTEIN (test code = 0671900040) 8.7 g/dL 6.3-8.2 H ALBUMIN (test code = 6447658912) 4.4 g/dL 3.5-5.0 ALK PHOS (test code = 2216165903) 86 U/L 34-122 ALTv (test code = 1742-6) 19 U/L 5-35 AST(SGOT) (test code = 5322006563) 28 U/L 13-40 Lab Interpretation (test cod e = 28867-5) Abnormal [facility] AtlantaMagnesium2025-04-23 23:35:15* Test Item Value Reference Range Interpretation Comme nts MAGNESIUM (test code = 3372057079) 1.4 mg/dL 1.7-2.4 L Lab Interpretation (test cod e = 86467-7) Abnormal [facility] (NA, K, CL, CO2, GLUCOSE, BUN, CREATININE, CA)2024-06-03 23:35:14* Test Item Value Reference Range Interpretation Comme nts NA (test code = 7781836486) 142 mmol/L 135-145 K (test code = 1342646894) 4.1 mmol/L 3.5-5.0 CL (test code = 2554419709) 112 mmol/L 98-108 H CO2 TOTAL (test code = 8617423728) 20 mmol/L 23-31 L AGAP (test code = 3811067195) 10 2-16 BUN (test code = 8508029810) 25 mg/dL 7-23 H GLUCOSE (test code = 4969761624) 128 mg/dL 70-110 H CREATININE (test code = 2160-0) 1.3 mg/dL 0.50-1.04 H CALCIUM (test code = 0716895003) 10.4 mg/dL 8.6-10.6 eGFR (test code = 25825-4) 46.9 mL/min/1.73m2 CKD-EPI eGFR (2020). Assuming creatinine has been stable day-to-day for at least three months, the eGFR indicates Category G3a (45 - 59 mL/min/1.73 m2) Lab Interpretation (test code = 82054-5) Abnormal [facility] AtlantaCOMPREHENSIVE METABOLIC [id number] 06:36:53* Test Item Value Reference Range Interpretation Comme nts GLUCOSE (test code = 2217) 87 MG/DL 70-99 BUN (test code = 220) 19 MG/DL 8-23 CREATININE (test code = 221) 1.49 MG/DL 0.60-1.30 H eGFR (2020 CKD-EPI) (test co de = 97705) 40 ML/MIN/1.73 >60 L CALC BUN/CREAT (test code = 2235) 13 RATIO 6-28 SODIUM (test code = 223) 143 MEQ/L 133-146 POTASSIUM (test code = 222) 3.8 MEQ/L 3.5-5.4 CHLORIDE (test code = 2215) 107 MEQ/L 95-107 CARBON DIOXIDE (test code = 220) 21 MEQ/L 19-31 CALCIUM (test code = 220) 10.7 MG/DL 8.5-10.5 H PROTEIN, TOTAL (test code = 222) 8.3 G/DL 6.1-8.3 ALBUMIN (test code = 2200) 4.4 G/DL 3.5-5.2 CALC GLOBULIN (test code = 2240) 3.9 G/DL 1.9-3.7 H CALC A/G RATIO (test code = 2234) 1.1 RATIO 1.0-2.6 BILIRUBIN, TOTAL (test code = 220) 0.4 MG/DL <=1.2 ALKALINE PHOSPHATASE (test code = 220) 109 U/L 40-136 AST (test code = 2218) 31 U/L 9-40 ALT (test code = 2219) 25 U/L 5-40 LIPID [id number] 06:36:53* Test Item Value Reference Range Interpretation [...] SPECIMENS. FOR MOREINFORMATION, SEE CLIENT ANNOUNCEMENT AT [email or web address] RISK RATIO LDL/HDL (test code = 2238) 0.66 RATIO <3.22 HEMOGLOBIN [id number] 04:59:33* Test Item Value Reference Range Interpretation Comme nts HEMOGLOBIN A1c (test code = 19851) 5.9 % 4.2-5.6 H [employer] GUIDELINES FOR HGB A1C: [...] INDICATED, ALL TESTING PERFORMED AT [facility] [address] [place] [address] GLOVE FORMER: ABBI SHORT M.D. CLIA NUMBER [id number] [facility] [place]. [id number] CBC W/AUTO DIFF WITH [id number] 03:30:09* Test Item Value Reference Range Interpretation [...] = 1065) 0.0 /100 WBC'S See_Comment [Automated Diurnala ge] The system which generated this result [...] 0.00-0.10 ABS NUCLEATED RBCS (test code = 99953) 0.00 K/UL 0.00-0.11 COMPREHENSIVE METABOLIC [id number] 00:00:00* Test Item Value Reference Range Interpretation Comme nts GLUCOSE (test code = 2217) 87 MG/DL BUN (test code = 2208) 19 MG/DL CREATININE (test code = 2214) 1.49 MG/DL eGFR (2020 CKD-EPI) (test co de = 61605) 40 ML/MIN/1.73 CALC BUN/CREAT (test code = [...] (test code = 2219) 25 U/L Delfino OrtaMeg W/AUTO [id number] 00:00:00* Test Item Value Reference Range Interpretation [...] ABS NUCLEATED RBCS (test cod e = 29894) 0.00 K/UL Delfino Schumacher YouLIPID [id number] 00:00:00* Test Item Value Reference Range Interpretation Comme nts CHOLESTEROL (test code = 2210) 196 MG/DL TRIGLYCERIDES (test code = 2232) 66 MG/DL HDL CHOLESTEROL (test code = 2220) 109 MG/DL CALC LDL CHOL (test code = 2237) 72 MG/DL RISK RATIO LDL/HDL (test cod e = 2238) 0.66 RATIO Delfino OrtaHEMOGLOBIN [id number] 00:00:00* Test Item Value Reference Range Interpretation Comme nts HEMOGLOBIN A1c (test code = 58392) 5.9 % Delfino Endy YouCOMPREHENSIVE METABOLIC [id number] 00:00:00* Test Item Value Reference Range Interpretation Comme nts GLUCOSE (test code = 2217) 87 MG/DL BUN (test code = 2208) 19 MG/DL CREATININE (test code = 2214) 1.49 MG/DL eGFR (2020 CKD-EPI) (test co de = 54068) 40 ML/MIN/1.73 CALC BUN/CREAT (test code = [...] (test code = 2219) 25 U/L Delfino F [facility] W/AUTO [id number] 00:00:00* Test Item Value Reference Range Interpretation [...] ABS NUCLEATED RBCS (test cod e = 77297) 0.00 K/UL Delfino OrtaLIPID [id number] 00:00:00* Test Item Value Reference Range Interpretation Comme nts CHOLESTEROL (test code = 2210) 196 MG/DL TRIGLYCERIDES (test code = 2232) 66 MG/DL HDL CHOLESTEROL (test code = 2220) 109 MG/DL CALC LDL CHOL (test code = 2237) 72 MG/DL RISK RATIO LDL/HDL (test cod e = 2238) 0.66 RATIO Delfino OrtaHEMOGLOBIN [id number] 00:00:00* Test Item Value Reference Range Interpretation Comme nts HEMOGLOBIN A1c (test code = 21490) 5.9 % Delfino OrtaCOMPREHENSIVE METABOLIC [id number] 00:00:00* Test Item Value Reference Range Interpretation Comme nts GLUCOSE (test code = 2217) 87 MG/DL BUN (test code = 2208) 19 MG/DL CREATININE (test code = 2214) 1.49 MG/DL eGFR (2020 CKD-EPI) (test co de = 84054) 40 ML/MIN/1.73 CALC BUN/CREAT (test code = [...] = 2219) 25 U/L Delfino OrtaCBC W/AUTO [id number] 00:00:00* Test Item Value Reference Range Interpretation [...] ABS NUCLEATED RBCS (test cod e = 87111) 0.00 K/UL Delfino OrtaLIPID [id number] 00:00:00* Test Item Value Reference Range Interpretation Comme nts CHOLESTEROL (test code = 2210) 196 MG/DL TRIGLYCERIDES (test code = 2232) 66 MG/DL HDL CHOLESTEROL (test code = 2220) 109 MG/DL CALC LDL CHOL (test code = 2237) 72 MG/DL RISK RATIO LDL/HDL (test cod e = 2238) 0.66 RATIO Delfino OrtaHEMOGLOBIN [id number] 00:00:00* Test Item Value Reference Range Interpretation Comme nts HEMOGLOBIN A1c (test code = 96954) 5.9 % Delfino OrtaCOMPREHENSIVE METABOLIC [id number] 00:00:00* Test Item Value Reference Range Interpretation Comme nts GLUCOSE (test code = 2217) 87 MG/DL BUN (test code = 2208) 19 MG/DL CREATININE (test code = 2214) 1.49 MG/DL eGFR (2020 CKD-EPI) (test co de = 99096) 40 ML/MIN/1.73 CALC BUN/CREAT (test code = [...] = 2219) 25 U/L Delfino OrtaCBC W/AUTO [id number] 00:00:00* Test Item Value Reference Range Interpretation [...] ABS NUCLEATED RBCS (test cod e = 94689) 0.00 K/UL Delfino OrtaLIPID [id number] 00:00:00* Test Item Value Reference Range Interpretation Comme nts CHOLESTEROL (test code = 2210) 196 MG/DL TRIGLYCERIDES (test code = 2232) 66 MG/DL HDL CHOLESTEROL (test code = 2220) 109 MG/DL CALC LDL CHOL (test code = 2237) 72 MG/DL RISK RATIO LDL/HDL (test cod e = 2238) 0.66 RATIO Delfino OrtaHEMOGLOBIN [id number] 00:00:00* Test Item Value Reference Range Interpretation Comme nts HEMOGLOBIN A1c (test code = 91719) 5.9 % Delfino OrtaCOMPREHENSIVE METABOLIC [id number] 00:00:00* Test Item Value Reference Range Interpretation Comme nts GLUCOSE (test code = 2217) 87 MG/DL BUN (test code = 2208) 19 MG/DL CREATININE (test code = 2214) 1.49 MG/DL eGFR (2020 CKD-EPI) (test co de = 68966) 40 ML/MIN/1.73 CALC BUN/CREAT (test code = [...] = 2219) 25 U/L Delfino OrtaCBC W/AUTO [id number] 00:00:00* Test Item Value Reference Range Interpretation [...] ABS NUCLEATED RBCS (test cod e = 44221) 0.00 K/UL Delfino OrtaLIPID [id number] 00:00:00* Test Item Value Reference Range Interpretation Comme nts CHOLESTEROL (test code = 2210) 196 MG/DL TRIGLYCERIDES (test code = 2232) 66 MG/DL HDL CHOLESTEROL (test code = 2220) 109 MG/DL CALC LDL CHOL (test code = 2237) 72 MG/DL RISK RATIO LDL/HDL (test cod e = 2238) 0.66 RATIO Delfino OrtaHEMOGLOBIN [id number] 00:00:00* Test Item Value Reference Range Interpretation Comme nts HEMOGLOBIN A1c (test code = 51640) 5.9 % Delfino OrtaCOMPREHENSIVE METABOLIC [id number] 00:00:00* Test Item Value Reference Range Interpretation Comme nts GLUCOSE (test code = 2217) 87 MG/DL BUN (test code = 2208) 19 MG/DL CREATININE (test code = 2214) 1.49 MG/DL eGFR (2020 CKD-EPI) (test co de = 72540) 40 ML/MIN/1.73 CALC BUN/CREAT (test code = [...] = 2219) 25 U/L Delfino OrtaCBC W/AUTO [id number] 00:00:00* Test Item Value Reference Range Interpretation [...] ABS NUCLEATED RBCS (test cod e = 15176) 0.00 K/UL Delfino Schumacher FlagstaffLIPID [id number] 00:00:00* Test Item Value Reference Range Interpretation Comme nts CHOLESTEROL (test code = 2210) 196 MG/DL TRIGLYCERIDES (test code = 2232) 66 MG/DL HDL CHOLESTEROL (test code = 2220) 109 MG/DL CALC LDL CHOL (test code = 2237) 72 MG/DL RISK RATIO LDL/HDL (test cod e = 2238) 0.66 RATIO Delfino OrtaHEMOGLOBIN [id number] 00:00:00* Test Item Value Reference Range Interpretation Comme nts HEMOGLOBIN A1c (test code = 28190) 5.9 % Delfino Schumacher YouCOMPREHENSIVE METABOLIC [id number] 00:00:00* Test Item Value Reference Range Interpretation Comme nts GLUCOSE (test code = 2217) 87 MG/DL BUN (test code = 2208) 19 MG/DL CREATININE (test code = 2214) 1.49 MG/DL eGFR (2020 CKD-EPI) (test co de = 85223) 40 ML/MIN/1.73 CALC BUN/CREAT (test code = [...] code = 2219) 25 U/L [facility] [id number] 00:00:00* Test Item Value Reference Range Interpretation [...] ABS NUCLEATED RBCS (test cod e = 37374) 0.00 K/UL Delfino OrtaLIPID [id number] 00:00:00* Test Item Value Reference Range Interpretation Comme nts CHOLESTEROL (test code = 2210) 196 MG/DL TRIGLYCERIDES (test code = 2232) 66 MG/DL HDL CHOLESTEROL (test code = 2220) 109 MG/DL CALC LDL CHOL (test code = 2237) 72 MG/DL RISK RATIO LDL/HDL (test cod e = 2238) 0.66 RATIO Delfino OrtaHEMOGLOBIN [id number] 00:00:00* Test Item Value Reference Range Interpretation Comme nts HEMOGLOBIN A1c (test code = 69188) 5.9 % Delfino OrtaCOMPREHENSIVE METABOLIC [id number] 00:00:00* Test Item Value Reference Range Interpretation Comme nts GLUCOSE (test code = 2217) 87 MG/DL BUN (test code = 2208) 19 MG/DL CREATININE (test code = 2214) 1.49 MG/DL eGFR (2020 CKD-EPI) (test co de = 86033) 40 ML/MIN/1.73 CALC BUN/CREAT (test code = [...] = 2219) 25 U/L Delfino OrtaCBC W/AUTO [id number] 00:00:00* Test Item Value Reference Range Interpretation [...] ABS NUCLEATED RBCS (test cod e = 62284) 0.00 K/UL Delfino Endy YouLIPID [id number] 00:00:00* Test Item Value Reference Range Interpretation Comme nts CHOLESTEROL (test code = 2210) 196 MG/DL TRIGLYCERIDES (test code = 2232) 66 MG/DL HDL CHOLESTEROL (test code = 2220) 109 MG/DL CALC LDL CHOL (test code = 2237) 72 MG/DL RISK RATIO LDL/HDL (test cod e = 2238) 0.66 RATIO Delfino OrtaHEMOGLOBIN [id number] 00:00:00* Test Item Value Reference Range Interpretation Comme nts HEMOGLOBIN A1c (test code = 86159) 5.9 % Delfino Schumacher YouCOMPREHENSIVE METABOLIC [id number] 00:00:00* Test Item Value Reference Range Interpretation Comme nts GLUCOSE (test code = 2217) 87 MG/DL BUN (test code = 2208) 19 MG/DL CREATININE (test code = 2214) 1.49 MG/DL eGFR (2020 CKD-EPI) (test co de = 99438) 40 ML/MIN/1.73 CALC BUN/CREAT (test code = [...] code = 2219) 25 U/L Delfino Schumacher [facility] W/AUTO [id number] 00:00:00* Test Item Value Reference Range Interpretation [...] ABS NUCLEATED RBCS (test cod e = 69725) 0.00 K/UL Delfino OrtaLIPID [id number] 00:00:00* Test Item Value Reference Range Interpretation Comme nts CHOLESTEROL (test code = 2210) 196 MG/DL TRIGLYCERIDES (test code = 2232) 66 MG/DL HDL CHOLESTEROL (test code = 2220) 109 MG/DL CALC LDL CHOL (test code = 2237) 72 MG/DL RISK RATIO LDL/HDL (test cod e = 2238) 0.66 RATIO Delfino OrtaHEMOGLOBIN [id number] 00:00:00* Test Item Value Reference Range Interpretation Comme nts HEMOGLOBIN A1c (test code = 01672) 5.9 % Delfino OrtaCOMPREHENSIVE METABOLIC [id number] 00:00:00* Test Item Value Reference Range Interpretation Comme nts GLUCOSE (test code = 2217) 87 MG/DL BUN (test code = 2208) 19 MG/DL CREATININE (test code = 2214) 1.49 MG/DL eGFR (2020 CKD-EPI) (test co de = 30178) 40 ML/MIN/1.73 CALC BUN/CREAT (test code = [...] = 2219) 25 U/L Delfino OrtaCBC W/AUTO [id number] 00:00:00* Test Item Value Reference Range Interpretation [...] ABS NUCLEATED RBCS (test cod e = 30249) 0.00 K/UL Delfino OrtaLIPID [id number] 00:00:00* Test Item Value Reference Range Interpretation Comme nts CHOLESTEROL (test code = 2210) 196 MG/DL TRIGLYCERIDES (test code = 2232) 66 MG/DL HDL CHOLESTEROL (test code = 2220) 109 MG/DL CALC LDL CHOL (test code = 2237) 72 MG/DL RISK RATIO LDL/HDL (test cod e = 2238) 0.66 RATIO Delfino OrtaHEMOGLOBIN [id number] 00:00:00* Test Item Value Reference Range Interpretation Comme nts HEMOGLOBIN A1c (test code = 74931) 5.9 % Delfino OrtaCOMPREHENSIVE METABOLIC [id number] 00:00:00* Test Item Value Reference Range Interpretation Comme nts GLUCOSE (test code = 2217) 87 MG/DL BUN (test code = 2208) 19 MG/DL CREATININE (test code = 2214) 1.49 MG/DL eGFR (2020 CKD-EPI) (test co de = 90794) 40 ML/MIN/1.73 CALC BUN/CREAT (test code = [...] code = 2219) 25 U/L Delfino Schumacher [facility] W/AUTO [id number] 00:00:00* Test Item Value Reference Range Interpretation [...] ABS NUCLEATED RBCS (test cod e = 34749) 0.00 K/UL Delfino OrtaLIPID [id number] 00:00:00* Test Item Value Reference Range Interpretation Comme nts CHOLESTEROL (test code = 2210) 196 MG/DL TRIGLYCERIDES (test code = 2232) 66 MG/DL HDL CHOLESTEROL (test code = 2220) 109 MG/DL CALC LDL CHOL (test code = 2237) 72 MG/DL RISK RATIO LDL/HDL (test cod e = 2238) 0.66 RATIO Delfino OrtaHEMOGLOBIN [id number] 00:00:00* Test Item Value Reference Range Interpretation Comme carlito HEMOGLOBIN A1c (test code = 82022) 5.9 % Delfino OrtaHIV-1 QUANT, [id number] 11:19:24* Test Item Value Reference Range Interpretation Comme carlito HIV-1 VIRAL COPY (test code = 4141) TEST NOT PERFORMED COPIES/ML Unable to perform testing, specimen not received.Charges adjusted as applicable. HIV-1 VIRAL LOG (test code = 71956) TEST NOT PERFORMED LOG COPIES/ML Range of quantitatio n is 20-10,000,000 Copies/mL, (1.301-7.000log Copies/mL). Samples with HIV RNA detected below the limit ofquantitation are reported as <20 Copies/mL. Assay methodology ispolymerase chain reaction (PCR) using the [employer] Jose 6800/8800system. The expected result is NOT DETECTED. For diagnostic use,please refer to laboratory test compendium. HIV-1 QUANT, [id number] 00:00:00* Test Item Value Reference Range Interpretation Comme nts HIV-1 VIRAL COPY (test code = 4141) TEST NOT PERFORMED COPIES/ML HIV-1 VIRAL LOG (test code = 14520) TEST NOT PERFORMED LOGCOPIES/ML Delfino F AustinHIV-1 QUANT, [id number] 00:00:00* Test Item Value Reference Range Interpretation Comme nts HIV-1 VIRAL COPY (test code = 4141) TEST NOT PERFORMED COPIES/ML HIV-1 VIRAL LOG (test code = 79910) TEST NOT PERFORMED LOGCOPIES/ML Delfino F AustinHIV-1 QUANT, [id number] 00:00:00* Test Item Value Reference Range Interpretation Comme nts HIV-1 VIRAL COPY (test code = 4141) TEST NOT PERFORMED COPIES/ML HIV-1 VIRAL LOG (test code = 50243) TEST NOT PERFORMED LOGCOPIES/ML Delfino F AustinHIV-1 QUANT, [id number] 00:00:00* Test Item Value Reference Range Interpretation Comme nts HIV-1 VIRAL COPY (test code = 4141) TEST NOT PERFORMED COPIES/ML HIV-1 VIRAL LOG (test code = 61396) TEST NOT PERFORMED LOGCOPIES/ML Delfino F AustinHIV-1 QUANT, [id number] 00:00:00* Test Item Value Reference Range Interpretation Comme nts HIV-1 VIRAL COPY (test code = 4141) TEST NOT PERFORMED COPIES/ML HIV-1 VIRAL LOG (test code = 75138) TEST NOT PERFORMED LOGCOPIES/ML Delfino F AustinHIV-1 QUANT, [id number] 00:00:00* Test Item Value Reference Range Interpretation Comme nts HIV-1 VIRAL COPY (test code = 4141) TEST NOT PERFORMED COPIES/ML HIV-1 VIRAL LOG (test code = 80295) TEST NOT PERFORMED LOGCOPIES/ML Delfino F AustinHIV-1 QUANT, [id number] 00:00:00* Test Item Value Reference Range Interpretation Comme nts HIV-1 VIRAL COPY (test code = 4141) TEST NOT PERFORMED COPIES/ML HIV-1 VIRAL LOG (test code = 98416) TEST NOT PERFORMED LOGCOPIES/ML Delfino F AustinHIV-1 QUANT, [id number] 00:00:00* Test Item Value Reference Range Interpretation Comme nts HIV-1 VIRAL COPY (test code = 4141) TEST NOT PERFORMED COPIES/ML HIV-1 VIRAL LOG (test code = 41206) TEST NOT PERFORMED LOGCOPIES/ML Delfino F AustinHIV-1 QUANT, [id number] 00:00:00* Test Item Value Reference Range Interpretation Comme carlito HIV-1 VIRAL COPY (test code = 4141) TEST NOT PERFORMED COPIES/ML HIV-1 VIRAL LOG (test code = 31174) TEST NOT PERFORMED LOGCOPIES/ML Delfino Schumacher AustinHIV-1 QUANT, [id number] 00:00:00* Test Item Value Reference Range Interpretation Comme carlito HIV-1 VIRAL COPY (test code = 4141) TEST NOT PERFORMED COPIES/ML HIV-1 VIRAL LOG (test code = 31492) TEST NOT PERFORMED LOGCOPIES/ML Delfino Schumacher AustinHIV-1 QUANT, [id number] 00:00:00* Test Item Value Reference Range Interpretation Comme carlito HIV-1 VIRAL COPY (test code = 4141) TEST NOT PERFORMED COPIES/ML HIV-1 VIRAL LOG (test code = 75524) TEST NOT PERFORMED LOGCOPIES/ML Delfino Schumacher AustinHIV-1 QUANT, [id number] 00:00:00* Test Item Value Reference Range Interpretation Comme carlito HIV-1 VIRAL COPY (test code = 4141) TEST NOT PERFORMED COPIES/ML HIV-1 VIRAL LOG (test code = 81174) TEST NOT PERFORMED LOGCOPIES/ML Delfino Schumacher AustinHIV-1 QUANT, [id number] 00:00:00* Test Item Value Reference Range Interpretation Comme carlito HIV-1 VIRAL COPY (test code = 4141) TEST NOT PERFORMED COPIES/ML HIV-1 VIRAL LOG (test code = 13348) TEST NOT PERFORMED LOGCOPIES/ML Delfino OrtaCD4/CD8 LYMPHOCYTE [id number] 15:06:04* Test Item Value Reference Range Interpretation Comme nts ABSOLUTE LYMPHOCYTES (test code = 79827) 1180 PER UL 1957-1890 PERCENT CD4 (test code = 19130) 20.9 % 34.0-65.0 L ABSOLUTE CD4 (test code = 83832) 247 PER UL 520-1470 L PERCENT CD8 (test code = 58453) 56.8 % 13.0-38.0 H ABSOLUTE CD8 (test code = 58150) 670 PER UL 205-920 CD4/CD8 RATIO (test code = 49518) 0.37 0.92-3.41 L UNLESS OTHERWISE INDICATED, ALL TESTING PERFORMED AT [facility] [address] [place] [id number] FORMER: ABBI SHORT M.D. CLIA NUMBER [id number] [facility] [place] [id number] CD4/CD8 LYMPHOCYTE [id number] 00:00:00* Test Item Value Reference Range Interpretation Comme nts ABSOLUTE LYMPHOCYTES (test c ode = 09334) 1180 PERUL PERCENT CD4 (test code = 90580) 20.9 % ABSOLUTE CD4 (test code = 27890) 247 PERUL PERCENT CD8 (test code = 31935) 56.8 % ABSOLUTE CD8 (test code = 23051) 670 PERUL CD4/CD8 RATIO (test code = 00189) 0.37 Delfino Schumacher AustinCD4/CD8 LYMPHOCYTE [id number] 00:00:00* Test Item Value Reference Range Interpretation Comme nts ABSOLUTE LYMPHOCYTES (test c ode = 29593) 1180 PERUL PERCENT CD4 (test code = 46424) 20.9 % ABSOLUTE CD4 (test code = 40879) 247 PERUL PERCENT CD8 (test code = 62257) 56.8 % ABSOLUTE CD8 (test code = 68675) 670 PERUL CD4/CD8 RATIO (test code = 07114) 0.37 Delfino Endy AustinCD4/CD8 LYMPHOCYTE [id number] 00:00:00* Test Item Value Reference Range Interpretation Comme nts ABSOLUTE LYMPHOCYTES (test c ode = 95154) 1180 PERUL PERCENT CD4 (test code = 81628) 20.9 % ABSOLUTE CD4 (test code = 09604) 247 PERUL PERCENT CD8 (test code = 95135) 56.8 % ABSOLUTE CD8 (test code = 45489) 670 PERUL CD4/CD8 RATIO (test code = 95128) 0.37 Delfino Schumacher AustinCD4/CD8 LYMPHOCYTE [id number] 00:00:00* Test Item Value Reference Range Interpretation Comme nts ABSOLUTE LYMPHOCYTES (test c ode = 76219) 1180 PERUL PERCENT CD4 (test code = 50715) 20.9 % ABSOLUTE CD4 (test code = 59324) 247 PERUL PERCENT CD8 (test code = 99878) 56.8 % ABSOLUTE CD8 (test code = 51954) 670 PERUL CD4/CD8 RATIO (test code = 82738) 0.37 Delfino Schumacher AustinCD4/CD8 LYMPHOCYTE [id number] 00:00:00* Test Item Value Reference Range Interpretation Comme nts ABSOLUTE LYMPHOCYTES (test c ode = 58345) 1180 PERUL PERCENT CD4 (test code = 18675) 20.9 % ABSOLUTE CD4 (test code = 19230) 247 PERUL PERCENT CD8 (test code = 03260) 56.8 % ABSOLUTE CD8 (test code = 31495) 670 PERUL CD4/CD8 RATIO (test code = 05315) 0.37 Delfino Schumacher AustinCD4/CD8 LYMPHOCYTE [id number] 00:00:00* Test Item Value Reference Range Interpretation Comme nts ABSOLUTE LYMPHOCYTES (test c ode = 13493) 1180 PERUL PERCENT CD4 (test code = 62478) 20.9 % ABSOLUTE CD4 (test code = 17669) 247 PERUL PERCENT CD8 (test code = 38786) 56.8 % ABSOLUTE CD8 (test code = 80221) 670 PERUL CD4/CD8 RATIO (test code = 38731) 0.37 Delfino Schumacher AustinCD4/CD8 LYMPHOCYTE [id number] 00:00:00* Test Item Value Reference Range Interpretation Comme nts ABSOLUTE LYMPHOCYTES (test c ode = 81838) 1180 PERUL PERCENT CD4 (test code = 67364) 20.9 % ABSOLUTE CD4 (test code = 30933) 247 PERUL PERCENT CD8 (test code = 24295) 56.8 % ABSOLUTE CD8 (test code = 73664) 670 PERUL CD4/CD8 RATIO (test code = 48720) 0.37 Delfino Schumacher AustinCD4/CD8 LYMPHOCYTE [id number] 00:00:00* Test Item Value Reference Range Interpretation Comme nts ABSOLUTE LYMPHOCYTES (test c ode = 39872) 1180 PERUL PERCENT CD4 (test code = 39042) 20.9 % ABSOLUTE CD4 (test code = 83172) 247 PERUL PERCENT CD8 (test code = 42854) 56.8 % ABSOLUTE CD8 (test code = 38567) 670 PERUL CD4/CD8 RATIO (test code = 91066) 0.37 Delfino Schumacher AustinCD4/CD8 LYMPHOCYTE [id number] 00:00:00* Test Item Value Reference Range Interpretation Comme nts ABSOLUTE LYMPHOCYTES (test c ode = 00539) 1180 PERUL PERCENT CD4 (test code = 02085) 20.9 % ABSOLUTE CD4 (test code = 38745) 247 PERUL PERCENT CD8 (test code = 35664) 56.8 % ABSOLUTE CD8 (test code = 52256) 670 PERUL CD4/CD8 RATIO (test code = 98872) 0.37 Delfino Schumacher AustinCD4/CD8 LYMPHOCYTE [id number] 00:00:00* Test Item Value Reference Range Interpretation Comme nts ABSOLUTE LYMPHOCYTES (test c ode = 78918) 1180 PERUL PERCENT CD4 (test code = 30185) 20.9 % ABSOLUTE CD4 (test code = 84363) 247 PERUL PERCENT CD8 (test code = 93516) 56.8 % ABSOLUTE CD8 (test code = 94064) 670 PERUL CD4/CD8 RATIO (test code = 86554) 0.37 Delfino Schumacher AustinCD4/CD8 LYMPHOCYTE [id number] 00:00:00* Test Item Value Reference Range Interpretation Comme nts ABSOLUTE LYMPHOCYTES (test c ode = 55095) 1180 PERUL PERCENT CD4 (test code = 91891) 20.9 % ABSOLUTE CD4 (test code = 02043) 247 PERUL PERCENT CD8 (test code = 68634) 56.8 % ABSOLUTE CD8 (test code = 43280) 670 PERUL CD4/CD8 RATIO (test code = 66237) 0.37 Delfino Schumacher AustinCD4/CD8 LYMPHOCYTE [id number] 00:00:00* Test Item Value Reference Range Interpretation Comme nts ABSOLUTE LYMPHOCYTES (test c ode = 87721) 1180 PERUL PERCENT CD4 (test code = 44522) 20.9 % ABSOLUTE CD4 (test code = 02827) 247 PERUL PERCENT CD8 (test code = 70188) 56.8 % ABSOLUTE CD8 (test code = 57472) 670 PERUL CD4/CD8 RATIO (test code = 46671) 0.37 Delfino Schumacher AustinCD4/CD8 LYMPHOCYTE [id number] 00:00:00* Test Item Value Reference Range Interpretation Comme nts ABSOLUTE LYMPHOCYTES (test c ode = 36832) 1180 PERUL PERCENT CD4 (test code = 37446) 20.9 % ABSOLUTE CD4 (test code = 49293) 247 PERUL PERCENT CD8 (test code = 12962) 56.8 % ABSOLUTE CD8 (test code = 76907) 670 PERUL CD4/CD8 RATIO (test code = 47783) 0.37 Delfino OrtaCBC W/AUTO [id number] 00:00:00* Test Item Value Reference Range Interpretation [...] ABS NUCLEATED RBCS (test cod e = 34312) 0.00 K/UL Delfino Schumacher YouCOMPREHENSIVE METABOLIC [id number] 00:00:00* Test Item Value Reference Range Interpretation Comme nts GLUCOSE (test code = 2217) 83 MG/DL BUN (test code = 2208) 24 MG/DL CREATININE (test code = 2214) 1.32 MG/DL eGFR (2020 CKD-EPI) (test co de = 70916) 46 ML/MIN/1.73 CALC BUN/CREAT (test code = [...] 2219) 13 U/L Delfino Schumacher YouCD4/CD8 LYMPHOCYTE [id number] 00:00:00* Test Item Value Reference Range Interpretation Comme [facility] ABSOLUTE LYMPHOCYTES (test c ode = 92708) 877 PERUL PERCENT CD4 (test code = 48179) 22.4 % ABSOLUTE CD4 (test code = 49784) 196 PERUL PERCENT CD8 (test code = 70607) 58.8 % ABSOLUTE CD8 (test code = 49033) 515 PERUL CD4/CD8 RATIO (test code = 56082) 0.38 Delfino Schumacher YouHIV-1 QUANT, [id number] 00:00:00* Test Item Value Reference Range Interpretation Comme [facility] HIV-1 VIRAL COPY (test code = 4141) 619 COPIES/ML HIV-1 VIRAL LOG (test code = 21455) 2.792 LOGCOPIES/ML Delfino cShumacher YouHEMOGLOBIN A1c [ADDED]2023-09-11 00:00:00* Test Item Value Reference Range Interpretation Comme nts HEMOGLOBIN A1c (test code = 79625) 5.6 % Delfino F YouCBC W/AUTO [id number] 00:00:00* Test Item Value Reference Range Interpretation [...] ABS NUCLEATED RBCS (test cod e = 22233) 0.00 K/UL Delfino OrtaCOMPREHENSIVE METABOLIC [id number] 00:00:00* Test Item Value Reference Range Interpretation Comme nts GLUCOSE (test code = 2217) 83 MG/DL BUN (test code = 2208) 24 MG/DL CREATININE (test code = 2214) 1.32 MG/DL eGFR (2020 CKD-EPI) (test co de = 21418) 46 ML/MIN/1.73 CALC BUN/CREAT (test code = [...] = 2219) 13 U/L Delfino OrtaCD4/CD8 LYMPHOCYTE [id number] 00:00:00* Test Item Value Reference Range Interpretation Comme nts ABSOLUTE LYMPHOCYTES (test c ode = 26757) 877 PERUL PERCENT CD4 (test code = 19879) 22.4 % ABSOLUTE CD4 (test code = 67041) 196 PERUL PERCENT CD8 (test code = 87741) 58.8 % ABSOLUTE CD8 (test code = 95202) 515 PERUL CD4/CD8 RATIO (test code = 92816) 0.38 Delfino OrtaHIV-1 QUANT, [id number] 00:00:00* Test Item Value Reference Range Interpretation Comme [facility] HIV-1 VIRAL COPY (test code = 4141) 619 COPIES/ML HIV-1 VIRAL LOG (test code = 09204) 2.792 LOGCOPIES/ML Delfino OrtaHEMOGLOBIN A1c [ADDED]2023-09-11 00:00:00* Test Item Value Reference Range Interpretation Comme [facility] HEMOGLOBIN A1c (test code = 01096) 5.6 % Delfino OrtaCBC W/AUTO [id number] 00:00:00* Test Item Value Reference Range Interpretation [...] ABS NUCLEATED RBCS (test cod e = 87218) 0.00 K/UL Delfino OrtaCOMPREHENSIVE METABOLIC [id number] 00:00:00* Test Item Value Reference Range Interpretation Comme nts GLUCOSE (test code = 2217) 83 MG/DL BUN (test code = 2208) 24 MG/DL CREATININE (test code = 2214) 1.32 MG/DL eGFR (2020 CKD-EPI) (test co de = 45096) 46 ML/MIN/1.73 CALC BUN/CREAT (test code = [...] 2219) 13 U/L Delfino F YouCD4/CD8 LYMPHOCYTE [id number] 00:00:00* Test Item Value Reference Range Interpretation Comme nts ABSOLUTE LYMPHOCYTES (test c ode = 49796) 877 PERUL PERCENT CD4 (test code = 97930) 22.4 % ABSOLUTE CD4 (test code = 02505) 196 PERUL PERCENT CD8 (test code = 28846) 58.8 % ABSOLUTE CD8 (test code = 54783) 515 PERUL CD4/CD8 RATIO (test code = 03008) 0.38 Delfino OrtaHIV-1 QUANT, [id number] 00:00:00* Test Item Value Reference Range Interpretation Comme nts HIV-1 VIRAL COPY (test code = 4141) 619 COPIES/ML HIV-1 VIRAL LOG (test code = 81376) 2.792 LOGCOPIES/ML Delfino OrtaHEMOGLOBIN A1c [ADDED]2023-09-11 00:00:00* Test Item Value Reference Range Interpretation Comme nts HEMOGLOBIN A1c (test code = 25311) 5.6 % Delfino OrtaCBC W/AUTO [id number] 00:00:00* Test Item Value Reference Range Interpretation [...] ABS NUCLEATED RBCS (test cod e = 86200) 0.00 K/UL Delfino Endy YouCOMPREHENSIVE METABOLIC [id number] 00:00:00* Test Item Value Reference Range Interpretation Comme nts GLUCOSE (test code = 2217) 83 MG/DL BUN (test code = 2208) 24 MG/DL CREATININE (test code = 2214) 1.32 MG/DL eGFR (2020 CKD-EPI) (test co de = 21100) 46 ML/MIN/1.73 CALC BUN/CREAT (test code = [...] 2219) 13 U/L Delfino Endy YouCD4/CD8 LYMPHOCYTE [id number] 00:00:00* Test Item Value Reference Range Interpretation Comme nts ABSOLUTE LYMPHOCYTES (test c ode = 89149) 877 PERUL PERCENT CD4 (test code = 54197) 22.4 % ABSOLUTE CD4 (test code = 20270) 196 PERUL PERCENT CD8 (test code = 39114) 58.8 % ABSOLUTE CD8 (test code = 69839) 515 PERUL CD4/CD8 RATIO (test code = 55257) 0.38 Delfino Endy YouHIV-1 QUANT, [id number] 00:00:00* Test Item Value Reference Range Interpretation Comme nts HIV-1 VIRAL COPY (test code = 4141) 619 COPIES/ML HIV-1 VIRAL LOG (test code = 30799) 2.792 LOGCOPIES/ML Delfino OrtaHEMOGLOBIN A1c [ADDED]2023-09-11 00:00:00* Test Item Value Reference Range Interpretation Comme nts HEMOGLOBIN A1c (test code = 27046) 5.6 % Delfino OrtaCBC W/AUTO [id number] 00:00:00* Test Item Value Reference Range Interpretation [...] ABS NUCLEATED RBCS (test cod e = 69434) 0.00 K/UL Delfino OrtaCOMPREHENSIVE METABOLIC [id number] 00:00:00* Test Item Value Reference Range Interpretation Comme nts GLUCOSE (test code = 2217) 83 MG/DL BUN (test code = 2208) 24 MG/DL CREATININE (test code = 2214) 1.32 MG/DL eGFR (2020 CKD-EPI) (test co de = 36953) 46 ML/MIN/1.73 CALC BUN/CREAT (test code = [...] = 2219) 13 U/L Delfino OrtaCD4/CD8 LYMPHOCYTE [id number] 00:00:00* Test Item Value Reference Range Interpretation Comme [facility] ABSOLUTE LYMPHOCYTES (test c ode = 58899) 877 PERUL PERCENT CD4 (test code = 07368) 22.4 % ABSOLUTE CD4 (test code = 42879) 196 PERUL PERCENT CD8 (test code = 08567) 58.8 % ABSOLUTE CD8 (test code = 28962) 515 PERUL CD4/CD8 RATIO (test code = 48047) 0.38 Delfino OrtaHIV-1 QUANT, [id number] 00:00:00* Test Item Value Reference Range Interpretation Comme [facility] HIV-1 VIRAL COPY (test code = 4141) 619 COPIES/ML HIV-1 VIRAL LOG (test code = 42844) 2.792 LOGCOPIES/ML Delfino OrtaHEMOGLOBIN A1c [ADDED]2023-09-11 00:00:00* Test Item Value Reference Range Interpretation Comme nts HEMOGLOBIN A1c (test code = 13055) 5.6 % Delfino OrtaCBC W/AUTO [id number] 00:00:00* Test Item Value Reference Range Interpretation [...] ABS NUCLEATED RBCS (test cod e = 43067) 0.00 K/UL Delfino F YouCOMPREHENSIVE METABOLIC [id number] 00:00:00* Test Item Value Reference Range Interpretation Comme nts GLUCOSE (test code = 2217) 83 MG/DL BUN (test code = 2208) 24 MG/DL CREATININE (test code = 2214) 1.32 MG/DL eGFR (2020 CKD-EPI) (test co de = 45397) 46 ML/MIN/1.73 CALC BUN/CREAT (test code = [...] = 2219) 13 U/L Delfino OrtaCD4/CD8 LYMPHOCYTE [id number] 00:00:00* Test Item Value Reference Range Interpretation Comme nts ABSOLUTE LYMPHOCYTES (test c ode = 52806) 877 PERUL PERCENT CD4 (test code = 17934) 22.4 % ABSOLUTE CD4 (test code = 71058) 196 PERUL PERCENT CD8 (test code = 04959) 58.8 % ABSOLUTE CD8 (test code = 42623) 515 PERUL CD4/CD8 RATIO (test code = 97715) 0.38 Delfino OrtaHIV-1 QUANT, [id number] 00:00:00* Test Item Value Reference Range Interpretation Comme [facility] HIV-1 VIRAL COPY (test code = 4141) 619 COPIES/ML HIV-1 VIRAL LOG (test code = 09032) 2.792 LOGCOPIES/ML Delfino OrtaHEMOGLOBIN A1c [ADDED]2023-09-11 00:00:00* Test Item Value Reference Range Interpretation Comme nts HEMOGLOBIN A1c (test code = 63914) 5.6 % Delfino OrtaCBC W/AUTO [id number] 00:00:00* Test Item Value Reference Range Interpretation [...] ABS NUCLEATED RBCS (test cod e = 31034) 0.00 K/UL Delfino Schumacher YouCOMPREHENSIVE METABOLIC [id number] 00:00:00* Test Item Value Reference Range Interpretation Comme nts GLUCOSE (test code = 2217) 83 MG/DL BUN (test code = 2208) 24 MG/DL CREATININE (test code = 2214) 1.32 MG/DL eGFR (2020 CKD-EPI) (test co de = 48739) 46 ML/MIN/1.73 CALC BUN/CREAT (test code = [...] 2219) 13 U/L Delfino Schumacher YouCD4/CD8 LYMPHOCYTE [id number] 00:00:00* Test Item Value Reference Range Interpretation Comme nts ABSOLUTE LYMPHOCYTES (test c ode = 13153) 877 PERUL PERCENT CD4 (test code = 04786) 22.4 % ABSOLUTE CD4 (test code = 26473) 196 PERUL PERCENT CD8 (test code = 25214) 58.8 % ABSOLUTE CD8 (test code = 21122) 515 PERUL CD4/CD8 RATIO (test code = 57030) 0.38 Delfino OrtaHIV-1 QUANT, [id number] 00:00:00* Test Item Value Reference Range Interpretation Comme nts HIV-1 VIRAL COPY (test code = 4141) 619 COPIES/ML HIV-1 VIRAL LOG (test code = 68812) 2.792 LOGCOPIES/ML Delfino OrtaHEMOGLOBIN A1c [ADDED]2023-09-11 00:00:00* Test Item Value Reference Range Interpretation Comme nts HEMOGLOBIN A1c (test code = 78846) 5.6 % Delfino OrtaCBC W/AUTO [id number] 00:00:00* Test Item Value Reference Range Interpretation [...] ABS NUCLEATED RBCS (test cod e = 33676) 0.00 K/UL Delfino OrtaCOMPREHENSIVE METABOLIC [id number] 00:00:00* Test Item Value Reference Range Interpretation Comme nts GLUCOSE (test code = 2217) 83 MG/DL BUN (test code = 2208) 24 MG/DL CREATININE (test code = 2214) 1.32 MG/DL eGFR (2020 CKD-EPI) (test co de = 69628) 46 ML/MIN/1.73 CALC BUN/CREAT (test code = [...] 2219) 13 U/L Delfino Schumacher YouCD4/CD8 LYMPHOCYTE [id number] 00:00:00* Test Item Value Reference Range Interpretation Comme [facility] ABSOLUTE LYMPHOCYTES (test c ode = 12833) 877 PERUL PERCENT CD4 (test code = 59695) 22.4 % ABSOLUTE CD4 (test code = 94457) 196 PERUL PERCENT CD8 (test code = 76675) 58.8 % ABSOLUTE CD8 (test code = 41237) 515 PERUL CD4/CD8 RATIO (test code = 44212) 0.38 Delfino Endy YouHIV-1 QUANT, [id number] 00:00:00* Test Item Value Reference Range Interpretation Comme nts HIV-1 VIRAL COPY (test code = 4141) 619 COPIES/ML HIV-1 VIRAL LOG (test code = 10011) 2.792 LOGCOPIES/ML Delfino Endy YouHEMOGLOBIN A1c [ADDED]2023-09-11 00:00:00* Test Item Value Reference Range Interpretation Comme nts HEMOGLOBIN A1c (test code = 38149) 5.6 % Delfino OrtaCBC W/AUTO [id number] 00:00:00* Test Item Value Reference Range Interpretation [...] ABS NUCLEATED RBCS (test cod e = 23911) 0.00 K/UL Delfino OrtaCOMPREHENSIVE METABOLIC [id number] 00:00:00* Test Item Value Reference Range Interpretation Comme nts GLUCOSE (test code = 2217) 83 MG/DL BUN (test code = 2208) 24 MG/DL CREATININE (test code = 2214) 1.32 MG/DL eGFR (2020 CKD-EPI) (test co de = 44812) 46 ML/MIN/1.73 CALC BUN/CREAT (test code = [...] 2219) 13 U/L Delfino Schumacher YouCD4/CD8 LYMPHOCYTE [id number] 00:00:00* Test Item Value Reference Range Interpretation Comme nts ABSOLUTE LYMPHOCYTES (test c ode = 45649) 877 PERUL PERCENT CD4 (test code = 90962) 22.4 % ABSOLUTE CD4 (test code = 26197) 196 PERUL PERCENT CD8 (test code = 57403) 58.8 % ABSOLUTE CD8 (test code = 05935) 515 PERUL CD4/CD8 RATIO (test code = 52713) 0.38 Delfino OrtaHIV-1 QUANT, [id number] 00:00:00* Test Item Value Reference Range Interpretation Comme nts HIV-1 VIRAL COPY (test code = 4141) 619 COPIES/ML HIV-1 VIRAL LOG (test code = 22699) 2.792 LOGCOPIES/ML Delfino Schumacher YouHEMOGLOBIN A1c [ADDED]2023-09-11 00:00:00* Test Item Value Reference Range Interpretation Comme nts HEMOGLOBIN A1c (test code = 93042) 5.6 % Delfino Schumacher YouCBC W/AUTO [id number] 00:00:00* Test Item Value Reference Range Interpretation [...] ABS NUCLEATED RBCS (test cod e = 41367) 0.00 K/UL Delfino F YouCOMPREHENSIVE METABOLIC [id number] 00:00:00* Test Item Value Reference Range Interpretation Comme nts GLUCOSE (test code = 2217) 83 MG/DL BUN (test code = 2208) 24 MG/DL CREATININE (test code = 2214) 1.32 MG/DL eGFR (2020 CKD-EPI) (test co de = 24611) 46 ML/MIN/1.73 CALC BUN/CREAT (test code = [...] = 2219) 13 U/L Delfino OrtaCD4/CD8 LYMPHOCYTE [id number] 00:00:00* Test Item Value Reference Range Interpretation Comme nts ABSOLUTE LYMPHOCYTES (test c ode = 66764) 877 PERUL PERCENT CD4 (test code = 26530) 22.4 % ABSOLUTE CD4 (test code = 98983) 196 PERUL PERCENT CD8 (test code = 55683) 58.8 % ABSOLUTE CD8 (test code = 06451) 515 PERUL CD4/CD8 RATIO (test code = 57334) 0.38 Delfino OrtaHIV-1 QUANT, [id number] 00:00:00* Test Item Value Reference Range Interpretation Comme nts HIV-1 VIRAL COPY (test code = 4141) 619 COPIES/ML HIV-1 VIRAL LOG (test code = 74208) 2.792 LOGCOPIES/ML Delfino OrtaHEMOGLOBIN A1c [ADDED]2023-09-11 00:00:00* Test Item Value Reference Range Interpretation Comme nts HEMOGLOBIN A1c (test code = 95429) 5.6 % Delfino OrtaCBC W/AUTO [id number] 00:00:00* Test Item Value Reference Range Interpretation [...] ABS NUCLEATED RBCS (test cod e = 81719) 0.00 K/UL Delfino Schumacher YouCOMPREHENSIVE METABOLIC [id number] 00:00:00* Test Item Value Reference Range Interpretation Comme nts GLUCOSE (test code = 2217) 83 MG/DL BUN (test code = 2208) 24 MG/DL CREATININE (test code = 2214) 1.32 MG/DL eGFR (2020 CKD-EPI) (test co de = 53038) 46 ML/MIN/1.73 CALC BUN/CREAT (test code = [...] 2219) 13 U/L Delfino Schumacher YouCD4/CD8 LYMPHOCYTE [id number] 00:00:00* Test Item Value Reference Range Interpretation Comme nts ABSOLUTE LYMPHOCYTES (test c ode = 09285) 877 PERUL PERCENT CD4 (test code = 80103) 22.4 % ABSOLUTE CD4 (test code = 97310) 196 PERUL PERCENT CD8 (test code = 12729) 58.8 % ABSOLUTE CD8 (test code = 26625) 515 PERUL CD4/CD8 RATIO (test code = 55512) 0.38 Delfino OrtaHIV-1 QUANT, [id number] 00:00:00* Test Item Value Reference Range Interpretation Comme nts HIV-1 VIRAL COPY (test code = 4141) 619 COPIES/ML HIV-1 VIRAL LOG (test code = 67227) 2.792 LOGCOPIES/ML Delfino OrtaHEMOGLOBIN A1c [ADDED]2023-09-11 00:00:00* Test Item Value Reference Range Interpretation Comme nts HEMOGLOBIN A1c (test code = 00960) 5.6 % Delfino OrtaCBC W/AUTO [id number] 00:00:00* Test Item Value Reference Range Interpretation [...] ABS NUCLEATED RBCS (test cod e = 51324) 0.00 K/UL Delfino OrtaCOMPREHENSIVE METABOLIC [id number] 00:00:00* Test Item Value Reference Range Interpretation Comme nts GLUCOSE (test code = 2217) 83 MG/DL BUN (test code = 2208) 24 MG/DL CREATININE (test code = 2214) 1.32 MG/DL eGFR (2020 CKD-EPI) (test co de = 84709) 46 ML/MIN/1.73 CALC BUN/CREAT (test code = [...] = 2219) 13 U/L Delfino OrtaCD4/CD8 LYMPHOCYTE [id number] 00:00:00* Test Item Value Reference Range Interpretation Comme nts ABSOLUTE LYMPHOCYTES (test c ode = 81413) 877 PERUL PERCENT CD4 (test code = 25966) 22.4 % ABSOLUTE CD4 (test code = 82491) 196 PERUL PERCENT CD8 (test code = 62704) 58.8 % ABSOLUTE CD8 (test code = 19306) 515 PERUL CD4/CD8 RATIO (test code = 14135) 0.38 Delfino Schumacher YouHIV-1 QUANT, [id number] 00:00:00* Test Item Value Reference Range Interpretation Comme nts HIV-1 VIRAL COPY (test code = 4141) 619 COPIES/ML HIV-1 VIRAL LOG (test code = 38883) 2.792 LOGCOPIES/ML Delfino Schumacher YouHEMOGLOBIN A1c [ADDED]2023-09-11 00:00:00* Test Item Value Reference Range Interpretation Comme nts HEMOGLOBIN A1c (test code = 90082) 5.6 % Delfino OrtaCBC W/AUTO [id number] 00:00:00* Test Item Value Reference Range Interpretation [...] ABS NUCLEATED RBCS (test cod e = 39443) 0.00 K/UL Delfino OrtaCOMPREHENSIVE METABOLIC [id number] 00:00:00* Test Item Value Reference Range Interpretation Comme nts GLUCOSE (test code = 2217) 83 MG/DL BUN (test code = 2208) 24 MG/DL CREATININE (test code = 2214) 1.32 MG/DL eGFR (2020 CKD-EPI) (test co de = 23142) 46 ML/MIN/1.73 CALC BUN/CREAT (test code = [...] = 2219) 13 U/L Delfino OrtaCD4/CD8 LYMPHOCYTE [id number] 00:00:00* Test Item Value Reference Range Interpretation Comme nts ABSOLUTE LYMPHOCYTES (test c ode = 11926) 877 PERUL PERCENT CD4 (test code = 53686) 22.4 % ABSOLUTE CD4 (test code = 06776) 196 PERUL PERCENT CD8 (test code = 22617) 58.8 % ABSOLUTE CD8 (test code = 12044) 515 PERUL CD4/CD8 RATIO (test code = 21685) 0.38 Delfino OrtaHIV-1 QUANT, [id number] 00:00:00* Test Item Value Reference Range Interpretation Comme [facility] HIV-1 VIRAL COPY (test code = 4141) 619 COPIES/ML HIV-1 VIRAL LOG (test code = 73640) 2.792 LOGCOPIES/ML Delfino OrtaHEMOGLOBIN A1c [ADDED]2023-09-11 00:00:00* Test Item Value Reference Range Interpretation Comme nts HEMOGLOBIN A1c (test code = 73733) 5.6 % Delfino OrtaCBC W/AUTO [id number] 00:00:00* Test Item Value Reference Range Interpretation [...] ABS NUCLEATED RBCS (test cod e = 30115) 0.00 K/UL Delfino OrtaCOMPREHENSIVE METABOLIC [id number] 00:00:00* Test Item Value Reference Range Interpretation Comme nts GLUCOSE (test code = 2217) 83 MG/DL BUN (test code = 2208) 24 MG/DL CREATININE (test code = 2214) 1.32 MG/DL eGFR (2020 CKD-EPI) (test co de = 48795) 46 ML/MIN/1.73 CALC BUN/CREAT (test code = [...] = 2219) 13 U/L Delfino OrtaCD4/CD8 LYMPHOCYTE [id number] 00:00:00* Test Item Value Reference Range Interpretation Comme nts ABSOLUTE LYMPHOCYTES (test c ode = 51095) 877 PERUL PERCENT CD4 (test code = 33421) 22.4 % ABSOLUTE CD4 (test code = 82546) 196 PERUL PERCENT CD8 (test code = 07104) 58.8 % ABSOLUTE CD8 (test code = 43473) 515 PERUL CD4/CD8 RATIO (test code = 33422) 0.38 Delfino OrtaHIV-1 QUANT, [id number] 00:00:00* Test Item Value Reference Range Interpretation Comme [facility] HIV-1 VIRAL COPY (test code = 4141) 619 COPIES/ML HIV-1 VIRAL LOG (test code = 64197) 2.792 LOGCOPIES/ML Delfino OrtaHEMOGLOBIN A1c [ADDED]2023-09-11 00:00:00* Test Item Value Reference Range Interpretation Comme [facility] HEMOGLOBIN A1c (test code = 62882) 5.6 % Delfino OrtaCBC W/AUTO [id number] 00:00:00* Test Item Value Reference Range Interpretation [...] ABS NUCLEATED RBCS (test cod e = 17248) 0.00 K/UL Delfino Schumacher YouCOMPREHENSIVE METABOLIC [id number] 00:00:00* Test Item Value Reference Range Interpretation Comme nts GLUCOSE (test code = 2217) 83 MG/DL BUN (test code = 2208) 24 MG/DL CREATININE (test code = 2214) 1.32 MG/DL eGFR (2020 CKD-EPI) (test co de = 18826) 46 ML/MIN/1.73 CALC BUN/CREAT (test code = [...] 2219) 13 U/L Delfino Schumacher YouCD4/CD8 LYMPHOCYTE [id number] 00:00:00* Test Item Value Reference Range Interpretation Comme nts ABSOLUTE LYMPHOCYTES (test c ode = 51725) 877 PERUL PERCENT CD4 (test code = 95205) 22.4 % ABSOLUTE CD4 (test code = 88041) 196 PERUL PERCENT CD8 (test code = 11813) 58.8 % ABSOLUTE CD8 (test code = 26365) 515 PERUL CD4/CD8 RATIO (test code = 61451) 0.38 Delfnio OrtaHIV-1 QUANT, [id number] 00:00:00* Test Item Value Reference Range Interpretation Comme nts HIV-1 VIRAL COPY (test code = 4141) 619 COPIES/ML HIV-1 VIRAL LOG (test code = 21077) 2.792 LOGCOPIES/ML Delfino OrtaHEMOGLOBIN A1c [ADDED]2023-09-11 00:00:00* Test Item Value Reference Range Interpretation Comme nts HEMOGLOBIN A1c (test code = 95187) 5.6 % Delfino OrtaCBC W/AUTO [id number] 00:00:00* Test Item Value Reference Range Interpretation [...] ABS NUCLEATED RBCS (test cod e = 85458) 0.00 K/UL Delfino OrtaCOMPREHENSIVE METABOLIC [id number] 00:00:00* Test Item Value Reference Range Interpretation Comme nts GLUCOSE (test code = 2217) 83 MG/DL BUN (test code = 2208) 24 MG/DL CREATININE (test code = 2214) 1.32 MG/DL eGFR (2020 CKD-EPI) (test co de = 78647) 46 ML/MIN/1.73 CALC BUN/CREAT (test code = [...] 2219) 13 U/L Delfino Schumacher YouCD4/CD8 LYMPHOCYTE [id number] 00:00:00* Test Item Value Reference Range Interpretation Comme nts ABSOLUTE LYMPHOCYTES (test c ode = 98881) 877 PERUL PERCENT CD4 (test code = 91046) 22.4 % ABSOLUTE CD4 (test code = 65197) 196 PERUL PERCENT CD8 (test code = 12471) 58.8 % ABSOLUTE CD8 (test code = 00359) 515 PERUL CD4/CD8 RATIO (test code = 23685) 0.38 Delfino Schumacher YouHIV-1 QUANT, [id number] 00:00:00* Test Item Value Reference Range Interpretation Comme nts HIV-1 VIRAL COPY (test code = 4141) 619 COPIES/ML HIV-1 VIRAL LOG (test code = 41517) 2.792 LOGCOPIES/ML Delfino Endy YouHEMOGLOBIN A1c [ADDED]2023-09-11 00:00:00* Test Item Value Reference Range Interpretation Comme nts HEMOGLOBIN A1c (test code = 88466) 5.6 % Delfino OrtaCBC W/AUTO [id number] 00:00:00* Test Item Value Reference Range Interpretation [...] ABS NUCLEATED RBCS (test cod e = 15120) 0.00 K/UL Delfino OrtaCOMPREHENSIVE METABOLIC [id number] 00:00:00* Test Item Value Reference Range Interpretation Comme nts GLUCOSE (test code = 2217) 83 MG/DL BUN (test code = 2208) 24 MG/DL CREATININE (test code = 2214) 1.32 MG/DL eGFR (2020 CKD-EPI) (test co de = 59232) 46 ML/MIN/1.73 CALC BUN/CREAT (test code = [...] = 2219) 13 U/L Delfino OrtaCD4/CD8 LYMPHOCYTE [id number] 00:00:00* Test Item Value Reference Range Interpretation Comme [facility] ABSOLUTE LYMPHOCYTES (test c ode = 24207) 877 PERUL PERCENT CD4 (test code = 37467) 22.4 % ABSOLUTE CD4 (test code = 74133) 196 PERUL PERCENT CD8 (test code = 61840) 58.8 % ABSOLUTE CD8 (test code = 22463) 515 PERUL CD4/CD8 RATIO (test code = 02361) 0.38 Delfino OrtaHIV-1 QUANT, [id number] 00:00:00* Test Item Value Reference Range Interpretation Comme [facility] HIV-1 VIRAL COPY (test code = 4141) 619 COPIES/ML HIV-1 VIRAL LOG (test code = 76813) 2.792 LOGCOPIES/ML Delfino OrtaHEMOGLOBIN A1c [ADDED]2023-09-11 00:00:00* Test Item Value Reference Range Interpretation Comme [facility] HEMOGLOBIN A1c (test code = 06062) 5.6 % Delfino OrtaCULTURE, [id number] 09:15:45SPECIMEN NUMBER: [id number] CULTURE, URINE SPECIMEN NUMBER: [id number] SPECIMEN COMMENT: URINE SOURCE: URINE REPORT STATUS: FINAL FINAL REPORT: 08/30/2023 10-100,000 CFU/ML MIXED MICROBIAL POPULATION PRESENT, NO PREDOMINATING ORGANISMS;PROBABLE CONTAMINANTS. UNLESS OTHERWISE INDICATED, ALL TESTING PERFORMED AT [facility] [address] [place] [address] [place] FORMER:ABBI SHORT M.D. CLIA NUMBER [id number] [place]. [id number], [id number] 00:00:00* Test Item Value Reference Range Interpretation Comme nts CULTURE, URINE (test code = 62031) SPECIMEN NUMBER: [id number] Delfino Cedeño [id number] 00:00:00* Test Item Value Reference Range Interpretation Comme nts CULTURE, URINE (test code = 07716) SPECIMEN NUMBER: [id number] Delfino Cedeño [id number] 00:00:00* Test Item Value Reference Range Interpretation Comme nts CULTURE, URINE (test code = 10544) SPECIMEN NUMBER: [id number] Delfino SarmientoLTNIALL [id number] 00:00:00* Test Item Value Reference Range Interpretation Comme nts CULTURE, URINE (test code = 58196) SPECIMEN NUMBER: [id number] Delfino Cedeño [id number] 00:00:00* Test Item Value Reference Range Interpretation Comme nts CULTURE, URINE (test code = 21740) SPECIMEN NUMBER: [id number] Delfino Cedeño, [id number] 00:00:00* Test Item Value Reference Range Interpretation Comme nts CULTURE, URINE (test code = 35244) SPECIMEN NUMBER: [id number] Delfino SarmientoLTNIALL, [id number] 00:00:00* Test Item Value Reference Range Interpretation Comme nts CULTURE, URINE (test code = 06147) SPECIMEN NUMBER: [id number] Delfino Cedeño, [id number] 00:00:00* Test Item Value Reference Range Interpretation Comme nts CULTURE, URINE (test code = 04899) SPECIMEN NUMBER: [id number] Delfino SarmientoLTNIALL, [id number] 00:00:00* Test Item Value Reference Range Interpretation Comme nts CULTURE, URINE (test code = 85723) SPECIMEN NUMBER: [id number] Delfino SarmientoLTNIALL, [id number] 00:00:00* Test Item Value Reference Range Interpretation Comme nts CULTURE, URINE (test code = 78694) SPECIMEN NUMBER: [id number] Delfino SarmientoLTNIALL, [id number] 00:00:00* Test Item Value Reference Range Interpretation Comme nts CULTURE, URINE (test code = 16550) SPECIMEN NUMBER: [id number] Delfino Cedeño [id number] 00:00:00* Test Item Value Reference Range Interpretation Comme nts CULTURE, URINE (test code = 63327) SPECIMEN NUMBER: [id number] Delfino Cedeño [id number] 00:00:00* Test Item Value Reference Range Interpretation Comme nts CULTURE, URINE (test code = 22412) SPECIMEN NUMBER: [id number] Delfino Cedeño [id number] 00:00:00* Test Item Value Reference Range Interpretation Comme nts CULTURE, URINE (test code = 28311) SPECIMEN NUMBER: [id number] Delfino Cedeño [id number] 00:00:00* Test Item Value Reference Range Interpretation Comme nts CULTURE, URINE (test code = 22623) SPECIMEN NUMBER: [id number] Delfino Cedeño [id number] 00:00:00* Test Item Value Reference Range Interpretation Comme nts CULTURE, URINE (test code = 26839) SPECIMEN NUMBER: [id number] Delfino Cedeño [id number] 00:00:00* Test Item Value Reference Range Interpretation Comme nts CULTURE, URINE (test code = 13238) SPECIMEN NUMBER: [id number] Delfino Cedeño [id number] 00:00:00* Test Item Value Reference Range Interpretation Comme nts CULTURE, URINE (test code = 60576) SPECIMEN NUMBER: [id number] Delfino OrtaREFERRAL- REQUEST/[id number] 15:45:25Ordered by an unspecified provider.[facility]TE[facility]ASE [facility]HIBIT[facility] [id number] 11:03:25* Test Item Value Reference Range Interpretation Comments BICTEGRAVIR (test code = 051155) Susceptible CABOTEGRAVIR (test code = 495443) Susceptible DOLUTEGRAVIR (test code = 66404) Susceptible ELVITEGRAVIR (test code = 38894) Susceptible RALTEGRAVIR (test code = 28840) Susceptible DRUG RESIST MUTATIONS (test code = 249137) INSTI (test code = 86534) None ACC RESIST MUTATIONS (test code = 590617) ACCESSORY MUT: (test code = 10354) None OTHER MUTATIONS (test code = 050135) INSTI (test code = 05331) SEE BELOW HIV-1 SUBTYPE (test code = 253686) B KABETOGAMA HIVDB [place] (test code = 126662) HIVDB_9.6 Other Mutations (INSTI): S24G, A38R, L45S, [...] with the ARV. Methodology:Testing methodology is reverse utilization management nurse polymerase chainreaction (RT-PCR) and next-generation sequencing (NGS) of theintegrase (IN) region of the HIV-1 polymerase (carolynn) gene. HIV-1integrase inhibitor resistance mutations and associatedsusceptibility interpretations are assigned relative to the HIV-1subtype B consensus sequence utilizing the genotypic resistanceinterpretation algorithm of the [employer] HIV Drug ResistanceDatabase (HIVDB). This test detects HIV-1 drug resistance mutations at a frequencyas low as 10%, which may account for differences in resistanceinterpretations between methods. Test results should be used andinterpreted in the context of clinical findings and other laboratorytest results. Disclaimer:This test was developed and its performance characteristicsdetermined by [facility] ([facility]). It has not beencleared or approved by the U.S. Food and Drug Administration (FDA).The FDA has determined that such clearance or approval is notnecessary. This test is used for clinical purposes and should not beregarded as investigational or for research. [facility] is qualified toperform high complexity testing under the Clinical LaboratoryImprovement Amendments (CLIA). TESTING PERFORMED AT [facility] [address] [place] [address], [facility] [address] [address] CLIA NO: [id number] UNLESS OTHERWISE INDICATED, ALL TESTING PERFORMED AT [facility] [address] [place] [address] [place] FORMER: ABBI SHORT M.D. CLIA NUMBER [id number] [facility] [place]. [id number] HIV-1 INTEGRASE INHIBITOR [id number] 00:00:00* Test Item Value Reference Range Interpretation Comme nts BICTEGRAVIR (test code = 831012) Susceptible CABOTEGRAVIR (test code = 927844) Susceptible DOLUTEGRAVIR (test code = 39713) Susceptible ELVITEGRAVIR (test code = 51550) Susceptible RALTEGRAVIR (test code = 33408) Susceptible DRUG RESIST MUTATIONS (test code = 742755) INSTI (test code = 15492) None ACC RESIST MUTATIONS (test c ode = 661493) ACCESSORY MUT: (test code = 72810) None OTHER MUTATIONS (test code = 457865) INSTI (test code = 27746) SEE BELOW HIV-1 SUBTYPE (test code = 353556) B NATALIE HIVDB [place] (test cod e = 267724) HIVDB_9.6 Delfino OrtaHIV-1 INTEGRASE INHIBITOR [id number] 00:00:00* Test Item Value Reference Range Interpretation Comme nts BICTEGRAVIR (test code = 875869) Susceptible CABOTEGRAVIR (test code = 301672) Susceptible DOLUTEGRAVIR (test code = 74490) Susceptible ELVITEGRAVIR (test code = 17167) Susceptible RALTEGRAVIR (test code = 85353) Susceptible DRUG RESIST MUTATIONS (test code = 548579) INSTI (test code = 25558) None ACC RESIST MUTATIONS (test c ode = 898543) ACCESSORY MUT: (test code = 10397) None OTHER MUTATIONS (test code = 493181) INSTI (test code = 87504) SEE BELOW HIV-1 SUBTYPE (test code = 743358) B KABETOGAMA HIVDB [place] (test cod e = 365247) HIVDB_9.6 Delfino Schumacher AustinHIV-1 INTEGRASE INHIBITOR [id number] 00:00:00* Test Item Value Reference Range Interpretation Comme nts BICTEGRAVIR (test code = 796895) Susceptible CABOTEGRAVIR (test code = 799241) Susceptible DOLUTEGRAVIR (test code = 06754) Susceptible ELVITEGRAVIR (test code = 51195) Susceptible RALTEGRAVIR (test code = 09779) Susceptible DRUG RESIST MUTATIONS (test code = 242030) INSTI (test code = 63342) None ACC RESIST MUTATIONS (test c ode = 224208) ACCESSORY MUT: (test code = 61001) None OTHER MUTATIONS (test code = 048983) INSTI (test code = 43255) SEE BELOW HIV-1 SUBTYPE (test code = 210214) B KABETOGAMA HIVDB [place] (test cod e = 851191) HIVDB_9.6 Delfino Schumacher AustinHIV-1 INTEGRASE INHIBITOR [id number] 00:00:00* Test Item Value Reference Range Interpretation Comme nts BICTEGRAVIR (test code = 956906) Susceptible CABOTEGRAVIR (test code = 865028) Susceptible DOLUTEGRAVIR (test code = 13990) Susceptible ELVITEGRAVIR (test code = 41452) Susceptible RALTEGRAVIR (test code = 07673) Susceptible DRUG RESIST MUTATIONS (test code = 324741) INSTI (test code = 38430) None ACC RESIST MUTATIONS (test c ode = 111378) ACCESSORY MUT: (test code = 54122) None OTHER MUTATIONS (test code = 801784) INSTI (test code = 05483) SEE BELOW HIV-1 SUBTYPE (test code = 224996) B KABETOGAMA HIVDB [place] (test cod e = 256022) HIVDB_9.6 Delfino Schumacher AustinHIV-1 INTEGRASE INHIBITOR [id number] 00:00:00* Test Item Value Reference Range Interpretation Comme nts BICTEGRAVIR (test code = 586695) Susceptible CABOTEGRAVIR (test code = 031133) Susceptible DOLUTEGRAVIR (test code = 89256) Susceptible ELVITEGRAVIR (test code = 02908) Susceptible RALTEGRAVIR (test code = 80327) Susceptible DRUG RESIST MUTATIONS (test code = 043719) INSTI (test code = 14912) None ACC RESIST MUTATIONS (test c ode = 177425) ACCESSORY MUT: (test code = 39967) None OTHER MUTATIONS (test code = 943668) INSTI (test code = 38728) SEE BELOW HIV-1 SUBTYPE (test code = 698296) B KABETOGAMA HIVDB [place] (test cod e = 871252) HIVDB_9.6 Delfino Schumacher AustinHIV-1 INTEGRASE INHIBITOR [id number] 00:00:00* Test Item Value Reference Range Interpretation Comme nts BICTEGRAVIR (test code = 698804) Susceptible CABOTEGRAVIR (test code = 211006) Susceptible DOLUTEGRAVIR (test code = 92216) Susceptible ELVITEGRAVIR (test code = 55490) Susceptible RALTEGRAVIR (test code = 26770) Susceptible DRUG RESIST MUTATIONS (test code = 191875) INSTI (test code = 16958) None ACC RESIST MUTATIONS (test c ode = 838183) ACCESSORY MUT: (test code = 59663) None OTHER MUTATIONS (test code = 203220) INSTI (test code = 93425) SEE BELOW HIV-1 SUBTYPE (test code = 213161) B KABETOGAMA HIVDB [place] (test cod e = 906538) HIVDB_9.6 Delfino Schumacher AustinHIV-1 INTEGRASE INHIBITOR [id number] 00:00:00* Test Item Value Reference Range Interpretation Comme nts BICTEGRAVIR (test code = 135752) Susceptible CABOTEGRAVIR (test code = 401033) Susceptible DOLUTEGRAVIR (test code = 59613) Susceptible ELVITEGRAVIR (test code = 66354) Susceptible RALTEGRAVIR (test code = 03775) Susceptible DRUG RESIST MUTATIONS (test code = 947509) INSTI (test code = 42753) None ACC RESIST MUTATIONS (test c ode = 859751) ACCESSORY MUT: (test code = 33703) None OTHER MUTATIONS (test code = 890587) INSTI (test code = 46682) SEE BELOW HIV-1 SUBTYPE (test code = 860905) B [place]ET[place]AMA HIVDB PRESTON (test cod e = 166409) HIVDB_9.6 Delfino Schumacher AustinHIV-1 INTEGRASE INHIBITOR [id number] 00:00:00* Test Item Value Reference Range Interpretation Comme nts BICTEGRAVIR (test code = 475619) Susceptible CABOTEGRAVIR (test code = 421159) Susceptible DOLUTEGRAVIR (test code = 87763) Susceptible ELVITEGRAVIR (test code = 27089) Susceptible RALTEGRAVIR (test code = 90177) Susceptible DRUG RESIST MUTATIONS (test code = 110900) INSTI (test code = 70585) None ACC RESIST MUTATIONS (test c ode = 805133) ACCESSORY MUT: (test code = 66815) None OTHER MUTATIONS (test code = 005296) INSTI (test code = 95833) SEE BELOW HIV-1 SUBTYPE (test code = 548981) B [place]ETOGAMA HIVDB PRESTON (test cod e = 581600) HIVDB_9.6 Delfino Schumacher AustinHIV-1 INTEGRASE INHIBITOR [id number] 00:00:00* Test Item Value Reference Range Interpretation Comme nts BICTEGRAVIR (test code = 998291) Susceptible CABOTEGRAVIR (test code = 150247) Susceptible DOLUTEGRAVIR (test code = 80430) Susceptible ELVITEGRAVIR (test code = 84211) Susceptible RALTEGRAVIR (test code = 04813) Susceptible DRUG RESIST MUTATIONS (test code = 910444) INSTI (test code = 72136) None ACC RESIST MUTATIONS (test c ode = 553292) ACCESSORY MUT: (test code = 20273) None OTHER MUTATIONS (test code = 147547) INSTI (test code = 70770) SEE BELOW HIV-1 SUBTYPE (test code = 118995) B KABETOGAMA HIVDB PRE[place] (test cod e = 925373) HIVDB_9.6 Delfino Schumacher AustinHIV-1 INTEGRASE INHIBITOR [id number] 00:00:00* Test Item Value Reference Range Interpretation Comme nts BICTEGRAVIR (test code = 333007) Susceptible CABOTEGRAVIR (test code = 662802) Susceptible DOLUTEGRAVIR (test code = 02971) Susceptible ELVITEGRAVIR (test code = 14815) Susceptible RALTEGRAVIR (test code = 13112) Susceptible DRUG RESIST MUTATIONS (test code = 057918) INSTI (test code = 78038) None ACC RESIST MUTATIONS (test c ode = 002086) ACCESSORY MUT: (test code = 76508) None OTHER MUTATIONS (test code = 106312) INSTI (test code = 86034) SEE BELOW HIV-1 SUBTYPE (test code = 427537) B KABETOGAMA HIVDB PRE[place] (test cod e = 150852) HIVDB_9.6 Delfino Schumacher AustinHIV-1 INTEGRASE INHIBITOR [id number] 00:00:00* Test Item Value Reference Range Interpretation Comme nts BICTEGRAVIR (test code = 278306) Susceptible CABOTEGRAVIR (test code = 530464) Susceptible DOLUTEGRAVIR (test code = 32239) Susceptible ELVITEGRAVIR (test code = 02752) Susceptible RALTEGRAVIR (test code = 71127) Susceptible DRUG RESIST MUTATIONS (test code = 794641) INSTI (test code = 08481) None ACC RESIST MUTATIONS (test c ode = 739206) ACCESSORY MUT: (test code = 60094) None OTHER MUTATIONS (test code = 511439) INSTI (test code = 85004) SEE BELOW HIV-1 SUBTYPE (test code = 730192) B KABETOGAMA HIVDB PRE[place] (test cod e = 844990) HIVDB_9.6 Delfino OrtaHIV-1 INTEGRASE INHIBITOR [id number] 00:00:00* Test Item Value Reference Range Interpretation Comme nts BICTEGRAVIR (test code = 084131) Susceptible CABOTEGRAVIR (test code = 849948) Susceptible DOLUTEGRAVIR (test code = 14226) Susceptible ELVITEGRAVIR (test code = 87094) Susceptible RALTEGRAVIR (test code = 56999) Susceptible DRUG RESIST MUTATIONS (test code = 075220) INSTI (test code = 10637) None ACC RESIST MUTATIONS (test c ode = 851396) ACCESSORY MUT: (test code = 25431) None OTHER MUTATIONS (test code = 130022) INSTI (test code = 51299) SEE BELOW HIV-1 SUBTYPE (test code = 453335) B KABETOGAMA HIVDB PRE[place] (test cod e = 013185) HIVDB_9.6 Delfino Schumacher AustinHIV-1 INTEGRASE INHIBITOR [id number] 00:00:00* Test Item Value Reference Range Interpretation Comme nts BICTEGRAVIR (test code = 111411) Susceptible CABOTEGRAVIR (test code = 644398) Susceptible DOLUTEGRAVIR (test code = 88123) Susceptible ELVITEGRAVIR (test code = 96820) Susceptible RALTEGRAVIR (test code = 27104) Susceptible DRUG RESIST MUTATIONS (test code = 033910) INSTI (test code = 48699) None ACC RESIST MUTATIONS (test c ode = 713548) ACCESSORY MUT: (test code = 77369) None OTHER MUTATIONS (test code = 739041) INSTI (test code = 79380) SEE BELOW HIV-1 SUBTYPE (test code = 704847) B KABETOGAMA HIVDB PRE[place] (test cod e = 332068) HIVDB_9.6 Delfino Schumacher AustinHIV-1 INTEGRASE INHIBITOR [id number] 00:00:00* Test Item Value Reference Range Interpretation Comme nts BICTEGRAVIR (test code = 956131) Susceptible CABOTEGRAVIR (test code = 345152) Susceptible DOLUTEGRAVIR (test code = 57841) Susceptible ELVITEGRAVIR (test code = 80131) Susceptible RALTEGRAVIR (test code = 63396) Susceptible DRUG RESIST MUTATIONS (test code = 708752) INSTI (test code = 17297) None ACC RESIST MUTATIONS (test c ode = 461482) ACCESSORY MUT: (test code = 10086) None OTHER MUTATIONS (test code = 964978) INSTI (test code = 74190) SEE BELOW HIV-1 SUBTYPE (test code = 430890) B KABETOGAMA HIVDB PRE[place] (test cod e = 588531) HIVDB_9.6 Delfino Schumacher AustinHIV-1 INTEGRASE INHIBITOR [id number] 00:00:00* Test Item Value Reference Range Interpretation Comme nts BICTEGRAVIR (test code = 669721) Susceptible CABOTEGRAVIR (test code = 414302) Susceptible DOLUTEGRAVIR (test code = 81758) Susceptible ELVITEGRAVIR (test code = 10412) Susceptible RALTEGRAVIR (test code = 46925) Susceptible DRUG RESIST MUTATIONS (test code = 486089) INSTI (test code = 63698) None ACC RESIST MUTATIONS (test c ode = 133143) ACCESSORY MUT: (test code = 79701) None OTHER MUTATIONS (test code = 689242) INSTI (test code = 89918) SEE BELOW HIV-1 SUBTYPE (test code = 127563) B KABETOGAMA HIVDB PRE[place] (test cod e = 603822) HIVDB_9.6 Delfino Schumacher AustinHIV-1 INTEGRASE INHIBITOR [id number] 00:00:00* Test Item Value Reference Range Interpretation Comme nts BICTEGRAVIR (test code = 774906) Susceptible CABOTEGRAVIR (test code = 855240) Susceptible DOLUTEGRAVIR (test code = 51726) Susceptible ELVITEGRAVIR (test code = 62130) Susceptible RALTEGRAVIR (test code = 32538) Susceptible DRUG RESIST MUTATIONS (test code = 133414) INSTI (test code = 39423) None ACC RESIST MUTATIONS (test c ode = 776390) ACCESSORY MUT: (test code = 95368) None OTHER MUTATIONS (test code = 443911) INSTI (test code = 67123) SEE BELOW HIV-1 SUBTYPE (test code = 141776) B KABETOGAMA HIVDB PRE[place] (test cod e = 311315) HIVDB_9.6 Delfino Schumacher AustinHIV-1 INTEGRASE INHIBITOR [id number] 00:00:00* Test Item Value Reference Range Interpretation Comme nts BICTEGRAVIR (test code = 018516) Susceptible CABOTEGRAVIR (test code = 929058) Susceptible DOLUTEGRAVIR (test code = 32571) Susceptible ELVITEGRAVIR (test code = 25164) Susceptible RALTEGRAVIR (test code = 47855) Susceptible DRUG RESIST MUTATIONS (test code = 690049) INSTI (test code = 23631) None ACC RESIST MUTATIONS (test c ode = 215176) ACCESSORY MUT: (test code = 99772) None OTHER MUTATIONS (test code = 489879) INSTI (test code = 60996) SEE BELOW HIV-1 SUBTYPE (test code = 228798) B KABETOGAMA HIVDB [facility] (test cod e = 284978) HIVDB_9.6 Delfino Schumacher AustinHIV-1 INTEGRASE INHIBITOR [id number] 00:00:00* Test Item Value Reference Range Interpretation Comme nts BICTEGRAVIR (test code = 418919) Susceptible CABOTEGRAVIR (test code = 853861) Susceptible DOLUTEGRAVIR (test code = 39110) Susceptible ELVITEGRAVIR (test code = 60023) Susceptible RALTEGRAVIR (test code = 16711) Susceptible DRUG RESIST MUTATIONS (test code = 024042) INSTI (test code = 25462) None ACC RESIST MUTATIONS (test c ode = 472749) ACCESSORY MUT: (test code = 56152) None OTHER MUTATIONS (test code = 935429) INSTI (test code = 27115) SEE BELOW HIV-1 SUBTYPE (test code = 105385) B KABETOGAMA HIVDB [facility] (test cod e = 329529) HIVDB_9.6 Delfino OrtaHIV-1 INTEGRASE INHIBITOR [id number] 00:00:00* Test Item Value Reference Range Interpretation Comme nts BICTEGRAVIR (test code = 618516) Susceptible CABOTEGRAVIR (test code = 360668) Susceptible DOLUTEGRAVIR (test code = 92129) Susceptible ELVITEGRAVIR (test code = 57841) Susceptible RALTEGRAVIR (test code = 02827) Susceptible DRUG RESIST MUTATIONS (test code = 665394) INSTI (test code = 51640) None ACC RESIST MUTATIONS (test c ode = 544067) ACCESSORY MUT: (test code = 20076) None OTHER MUTATIONS (test code = 212810) INSTI (test code = 56016) SEE BELOW HIV-1 SUBTYPE (test code = 945108) B KABETOGAMA HIVDB [facility] (test cod e = 624023) HIVDB_9.6 Delfino Schumacher AustinHIV-1 INTEGRASE INHIBITOR [id number] 00:00:00* Test Item Value Reference Range Interpretation Comme nts BICTEGRAVIR (test code = 169243) Susceptible CABOTEGRAVIR (test code = 114840) Susceptible DOLUTEGRAVIR (test code = 87590) Susceptible ELVITEGRAVIR (test code = 82604) Susceptible RALTEGRAVIR (test code = 01921) Susceptible DRUG RESIST MUTATIONS (test code = 575617) INSTI (test code = 58984) None ACC RESIST MUTATIONS (test c ode = 643825) ACCESSORY MUT: (test code = 01277) None OTHER MUTATIONS (test code = 421569) INSTI (test code = 89448) SEE BELOW HIV-1 SUBTYPE (test code = 169469) B KABETOGAMA HIVDB [facility] (test cod e = 811098) HIVDB_9.6 Delfino Schumacher AustinHIV-1 INTEGRASE INHIBITOR [id number] 00:00:00* Test Item Value Reference Range Interpretation Comme nts BICTEGRAVIR (test code = 395072) Susceptible CABOTEGRAVIR (test code = 646310) Susceptible DOLUTEGRAVIR (test code = 71682) Susceptible ELVITEGRAVIR (test code = 03413) Susceptible RALTEGRAVIR (test code = 35070) Susceptible DRUG RESIST MUTATIONS (test code = 756789) INSTI (test code = 64680) None ACC RESIST MUTATIONS (test c ode = 122008) ACCESSORY MUT: (test code = 84916) None OTHER MUTATIONS (test code = 596944) INSTI (test code = 91265) SEE BELOW HIV-1 SUBTYPE (test code = 389996) B KABETOGAMA HIVDB [facility] (test cod e = 877347) HIVDB_9.6 Delfino F AustinHIV-1 INTEGRASE INHIBITOR [id number] 00:00:00* Test Item Value Reference Range Interpretation Comme nts BICTEGRAVIR (test code = 805621) Susceptible CABOTEGRAVIR (test code = 151607) Susceptible DOLUTEGRAVIR (test code = 81209) Susceptible ELVITEGRAVIR (test code = 84828) Susceptible RALTEGRAVIR (test code = 02441) Susceptible DRUG RESIST MUTATIONS (test code = 077092) INSTI (test code = 39328) None ACC RESIST MUTATIONS (test c ode = 125039) ACCESSORY MUT: (test code = 52403) None OTHER MUTATIONS (test code = 549769) INSTI (test code = 94669) SEE BELOW HIV-1 SUBTYPE (test code = 377520) B KABETOGAMA HIVDB PRE[place] (test cod e = 419995) HIVDB_9.6 Delfino OrtaHIV-1 INTEGRASE INHIBITOR [id number] 00:00:00* Test Item Value Reference Range Interpretation Comme nts BICTEGRAVIR (test code = 854185) Susceptible CABOTEGRAVIR (test code = 382524) Susceptible DOLUTEGRAVIR (test code = 79562) Susceptible ELVITEGRAVIR (test code = 06383) Susceptible RALTEGRAVIR (test code = 94749) Susceptible DRUG RESIST MUTATIONS (test code = 162599) INSTI (test code = 01348) None ACC RESIST MUTATIONS (test c ode = 618890) ACCESSORY MUT: (test code = 45402) None OTHER MUTATIONS (test code = 481752) INSTI (test code = 71618) SEE BELOW HIV-1 SUBTYPE (test code = 485156) B KABETOGAMA HIVDB PRE[place] (test cod e = 699223) HIVDB_9.6 Delfino Schumacher AustinCD4/CD8 LYMPHOCYTE [id number] 12:40:38* Test Item Value Reference Range Interpretation Comme nts ABSOLUTE LYMPHOCYTES (test code = 12414) 941 PER UL 3880-2829 L Specimen rec eived outside of temperature specifications. Resultsreviewed by Abbi Short M.D. PERCENT CD4 (test code = 27756) 16.3 % 34.0-65.0 L ABSOLUTE CD4 (test code = 99586) 154 PER UL 520-1470 L PERCENT CD8 (test code = 77224) 52.5 % 13.0-38.0 H ABSOLUTE CD8 (test code = 04232) 494 PER UL 205-920 CD4/CD8 RATIO (test code = 51634) 0.31 0.92-3.41 L CD4/CD8 LYMPHOCYTE [id number] 00:00:00* Test Item Value Reference Range Interpretation Comme nts ABSOLUTE LYMPHOCYTES (test c ode = 68206) 941 PERUL PERCENT CD4 (test code = 49225) 16.3 % ABSOLUTE CD4 (test code = 60236) 154 PERUL PERCENT CD8 (test code = 91477) 52.5 % ABSOLUTE CD8 (test code = 57704) 494 PERUL CD4/CD8 RATIO (test code = 92614) 0.31 Delfino Schumacher AustinCD4/CD8 LYMPHOCYTE [id number] 00:00:00* Test Item Value Reference Range Interpretation Comme nts ABSOLUTE LYMPHOCYTES (test c ode = 15299) 941 PERUL PERCENT CD4 (test code = 43194) 16.3 % ABSOLUTE CD4 (test code = 28282) 154 PERUL PERCENT CD8 (test code = 37954) 52.5 % ABSOLUTE CD8 (test code = 72127) 494 PERUL CD4/CD8 RATIO (test code = 54828) 0.31 Delfino Schumacher AustinCD4/CD8 LYMPHOCYTE [id number] 00:00:00* Test Item Value Reference Range Interpretation Comme nts ABSOLUTE LYMPHOCYTES (test c ode = 22242) 941 PERUL PERCENT CD4 (test code = 98248) 16.3 % ABSOLUTE CD4 (test code = 69790) 154 PERUL PERCENT CD8 (test code = 48559) 52.5 % ABSOLUTE CD8 (test code = 34607) 494 PERUL CD4/CD8 RATIO (test code = 59523) 0.31 Delfino Schumacher AustinCD4/CD8 LYMPHOCYTE [id number] 00:00:00* Test Item Value Reference Range Interpretation Comme nts ABSOLUTE LYMPHOCYTES (test c ode = 80645) 941 PERUL PERCENT CD4 (test code = 63638) 16.3 % ABSOLUTE CD4 (test code = 42929) 154 PERUL PERCENT CD8 (test code = 33060) 52.5 % ABSOLUTE CD8 (test code = 79418) 494 PERUL CD4/CD8 RATIO (test code = 88716) 0.31 Delfino Schumacher AustinCD4/CD8 LYMPHOCYTE [id number] 00:00:00* Test Item Value Reference Range Interpretation Comme nts ABSOLUTE LYMPHOCYTES (test c ode = 02330) 941 PERUL PERCENT CD4 (test code = 73147) 16.3 % ABSOLUTE CD4 (test code = 85830) 154 PERUL PERCENT CD8 (test code = 06480) 52.5 % ABSOLUTE CD8 (test code = 64700) 494 PERUL CD4/CD8 RATIO (test code = 50866) 0.31 Delfino Schumacher AustinCD4/CD8 LYMPHOCYTE [id number] 00:00:00* Test Item Value Reference Range Interpretation Comme nts ABSOLUTE LYMPHOCYTES (test c ode = 26832) 941 PERUL PERCENT CD4 (test code = 21593) 16.3 % ABSOLUTE CD4 (test code = 42368) 154 PERUL PERCENT CD8 (test code = 73840) 52.5 % ABSOLUTE CD8 (test code = 07579) 494 PERUL CD4/CD8 RATIO (test code = 35388) 0.31 Delfino Schumacher AustinCD4/CD8 LYMPHOCYTE [id number] 00:00:00* Test Item Value Reference Range Interpretation Comme nts ABSOLUTE LYMPHOCYTES (test c ode = 42444) 941 PERUL PERCENT CD4 (test code = 45067) 16.3 % ABSOLUTE CD4 (test code = 49755) 154 PERUL PERCENT CD8 (test code = 20563) 52.5 % ABSOLUTE CD8 (test code = 50517) 494 PERUL CD4/CD8 RATIO (test code = 25677) 0.31 Delfino Schumacher AustinCD4/CD8 LYMPHOCYTE [id number] 00:00:00* Test Item Value Reference Range Interpretation Comme nts ABSOLUTE LYMPHOCYTES (test c ode = 56719) 941 PERUL PERCENT CD4 (test code = 50145) 16.3 % ABSOLUTE CD4 (test code = 37950) 154 PERUL PERCENT CD8 (test code = 69192) 52.5 % ABSOLUTE CD8 (test code = 52847) 494 PERUL CD4/CD8 RATIO (test code = 11628) 0.31 Delfino Schumacher AustinCD4/CD8 LYMPHOCYTE [id number] 00:00:00* Test Item Value Reference Range Interpretation Comme nts ABSOLUTE LYMPHOCYTES (test c ode = 33752) 941 PERUL PERCENT CD4 (test code = 81056) 16.3 % ABSOLUTE CD4 (test code = 72796) 154 PERUL PERCENT CD8 (test code = 47806) 52.5 % ABSOLUTE CD8 (test code = 73701) 494 PERUL CD4/CD8 RATIO (test code = 02584) 0.31 Delfino Schumacher AustinCD4/CD8 LYMPHOCYTE [id number] 00:00:00* Test Item Value Reference Range Interpretation Comme nts ABSOLUTE LYMPHOCYTES (test c ode = 50784) 941 PERUL PERCENT CD4 (test code = 36354) 16.3 % ABSOLUTE CD4 (test code = 47050) 154 PERUL PERCENT CD8 (test code = 95948) 52.5 % ABSOLUTE CD8 (test code = 55079) 494 PERUL CD4/CD8 RATIO (test code = 06566) 0.31 Delfino Schumacher AustinCD4/CD8 LYMPHOCYTE [id number] 00:00:00* Test Item Value Reference Range Interpretation Comme nts ABSOLUTE LYMPHOCYTES (test c ode = 95396) 941 PERUL PERCENT CD4 (test code = 88097) 16.3 % ABSOLUTE CD4 (test code = 75106) 154 PERUL PERCENT CD8 (test code = 19201) 52.5 % ABSOLUTE CD8 (test code = 32516) 494 PERUL CD4/CD8 RATIO (test code = 28210) 0.31 Delfino Schumacher AustinCD4/CD8 LYMPHOCYTE [id number] 00:00:00* Test Item Value Reference Range Interpretation Comme nts ABSOLUTE LYMPHOCYTES (test c ode = 25266) 941 PERUL PERCENT CD4 (test code = 71870) 16.3 % ABSOLUTE CD4 (test code = 00076) 154 PERUL PERCENT CD8 (test code = 98550) 52.5 % ABSOLUTE CD8 (test code = 04844) 494 PERUL CD4/CD8 RATIO (test code = 71164) 0.31 Delfino Schumacher AustinCD4/CD8 LYMPHOCYTE [id number] 00:00:00* Test Item Value Reference Range Interpretation Comme nts ABSOLUTE LYMPHOCYTES (test c ode = 50874) 941 PERUL PERCENT CD4 (test code = 92233) 16.3 % ABSOLUTE CD4 (test code = 45054) 154 PERUL PERCENT CD8 (test code = 41675) 52.5 % ABSOLUTE CD8 (test code = 80257) 494 PERUL CD4/CD8 RATIO (test code = 29539) 0.31 Delfino Schumacher AustinCD4/CD8 LYMPHOCYTE [id number] 00:00:00* Test Item Value Reference Range Interpretation Comme nts ABSOLUTE LYMPHOCYTES (test c ode = 16601) 941 PERUL PERCENT CD4 (test code = 14047) 16.3 % ABSOLUTE CD4 (test code = 93870) 154 PERUL PERCENT CD8 (test code = 38988) 52.5 % ABSOLUTE CD8 (test code = 67450) 494 PERUL CD4/CD8 RATIO (test code = 55594) 0.31 Delfino Schumacher AustinCD4/CD8 LYMPHOCYTE [id number] 00:00:00* Test Item Value Reference Range Interpretation Comme nts ABSOLUTE LYMPHOCYTES (test c ode = 20024) 941 PERUL PERCENT CD4 (test code = 62258) 16.3 % ABSOLUTE CD4 (test code = 26870) 154 PERUL PERCENT CD8 (test code = 63768) 52.5 % ABSOLUTE CD8 (test code = 42113) 494 PERUL CD4/CD8 RATIO (test code = 39863) 0.31 Delfino Schumacher AustinCD4/CD8 LYMPHOCYTE [id number] 00:00:00* Test Item Value Reference Range Interpretation Comme nts ABSOLUTE LYMPHOCYTES (test c ode = 55612) 941 PERUL PERCENT CD4 (test code = 20161) 16.3 % ABSOLUTE CD4 (test code = 87505) 154 PERUL PERCENT CD8 (test code = 38646) 52.5 % ABSOLUTE CD8 (test code = 55230) 494 PERUL CD4/CD8 RATIO (test code = 96985) 0.31 Delfino Schumacher AustinCD4/CD8 LYMPHOCYTE [id number] 00:00:00* Test Item Value Reference Range Interpretation Comme nts ABSOLUTE LYMPHOCYTES (test c ode = 06985) 941 PERUL PERCENT CD4 (test code = 03495) 16.3 % ABSOLUTE CD4 (test code = 40110) 154 PERUL PERCENT CD8 (test code = 48533) 52.5 % ABSOLUTE CD8 (test code = 71461) 494 PERUL CD4/CD8 RATIO (test code = 63212) 0.31 Delfino Schumacher AustinCD4/CD8 LYMPHOCYTE [id number] 00:00:00* Test Item Value Reference Range Interpretation Comme nts ABSOLUTE LYMPHOCYTES (test c ode = 93875) 941 PERUL PERCENT CD4 (test code = 04716) 16.3 % ABSOLUTE CD4 (test code = 83375) 154 PERUL PERCENT CD8 (test code = 66756) 52.5 % ABSOLUTE CD8 (test code = 07917) 494 PERUL CD4/CD8 RATIO (test code = 70862) 0.31 Delfino Schumacher AustinCD4/CD8 LYMPHOCYTE [id number] 00:00:00* Test Item Value Reference Range Interpretation Comme nts ABSOLUTE LYMPHOCYTES (test c ode = 97651) 941 PERUL PERCENT CD4 (test code = 91098) 16.3 % ABSOLUTE CD4 (test code = 69661) 154 PERUL PERCENT CD8 (test code = 89840) 52.5 % ABSOLUTE CD8 (test code = 23487) 494 PERUL CD4/CD8 RATIO (test code = 06829) 0.31 Delfino Schumacher AustinCD4/CD8 LYMPHOCYTE [id number] 00:00:00* Test Item Value Reference Range Interpretation Comme nts ABSOLUTE LYMPHOCYTES (test c ode = 88361) 941 PERUL PERCENT CD4 (test code = 66379) 16.3 % ABSOLUTE CD4 (test code = 64594) 154 PERUL PERCENT CD8 (test code = 77837) 52.5 % ABSOLUTE CD8 (test code = 73606) 494 PERUL CD4/CD8 RATIO (test code = 08339) 0.31 Delfino Schumacher AustinCD4/CD8 LYMPHOCYTE [id number] 00:00:00* Test Item Value Reference Range Interpretation Comme nts ABSOLUTE LYMPHOCYTES (test c ode = 80596) 941 PERUL PERCENT CD4 (test code = 13697) 16.3 % ABSOLUTE CD4 (test code = 83159) 154 PERUL PERCENT CD8 (test code = 19352) 52.5 % ABSOLUTE CD8 (test code = 07799) 494 PERUL CD4/CD8 RATIO (test code = 54711) 0.31 Delfino Schumacher AustinCD4/CD8 LYMPHOCYTE [id number] 00:00:00* Test Item Value Reference Range Interpretation Comme nts ABSOLUTE LYMPHOCYTES (test c ode = 77341) 941 PERUL PERCENT CD4 (test code = 41789) 16.3 % ABSOLUTE CD4 (test code = 90083) 154 PERUL PERCENT CD8 (test code = 64701) 52.5 % ABSOLUTE CD8 (test code = 58161) 494 PERUL CD4/CD8 RATIO (test code = 04569) 0.31 Delfino Schumacher AustinCD4/CD8 LYMPHOCYTE [id number] 00:00:00* Test Item Value Reference Range Interpretation Comme nts ABSOLUTE LYMPHOCYTES (test c ode = 79362) 941 PERUL PERCENT CD4 (test code = 23144) 16.3 % ABSOLUTE CD4 (test code = 99668) 154 PERUL PERCENT CD8 (test code = 22169) 52.5 % ABSOLUTE CD8 (test code = 90538) 494 PERUL CD4/CD8 RATIO (test code = 50244) 0.31 Delfino Schumacher oYuCBC W/AUTO DIFF WITH [id number] 11:40:06* Test Item Value Reference Range Interpretation [...] 0.00-0.10 ABS NUCLEATED RBCS (test code = 61418) 0.00 K/UL 0.00-0.11 COMMENTS (test code = 1016) (NOTE) MODERATE MACROCY TOSIS SLIGHT TOXIC GRANULATION PLATELETS APPEAR NORMAL SEE ADDITIONAL COMMENTS BELOW: SLIGHT VACUOLIZATION OF NEUTROPHILS COMPREHENSIVE METABOLIC [id number] 05:24:56* Test Item Value Reference Range Interpretation Comme nts GLUCOSE (test code = 2217) 90 MG/DL 70-99 BUN (test code = 2208) 40 MG/DL 8-23 H CREATININE (test code = 2214) 2.05 MG/DL 0.60-1.30 H eGFR (2020 CKD-EPI) (test co de = 40082) 27 ML/MIN/1.73 >60 L CALC BUN/CREAT (test [...] code = 2219) 16 U/L 5-40 LIPID [id number] 05:24:56* Test Item Value Reference Range Interpretation [...] SPECIMENS. FOR MOREINFORMATION, SEE CLIENT ANNOUNCEMENT AT [email or web address] RATIO LDL/HDL (test code = 2238) 0.91 RATIO <3.22 LIPID [id number] 00:00:00* Test Item Value Reference Range Interpretation Comme nts CHOLESTEROL (test code = 2210) 212 MG/DL TRIGLYCERIDES (test code = 2232) 80 MG/DL HDL CHOLESTEROL (test code = 2220) 102 MG/DL CALC LDL CHOL (test code = 2237) 93 MG/DL RISK RATIO LDL/HDL (test cod e = 2238) 0.91 RATIO [facility] [id number] 00:00:00* Test Item Value Reference Range Interpretation [...] ABS NUCLEATED RBCS (test cod e = 97171) 0.00 K/UL COMMENTS (test code = 1016) (NOTE) Delfino OrtaCOMPREHENSIVE METABOLIC [id number] 00:00:00* Test Item Value Reference Range Interpretation Comme nts GLUCOSE (test code = 2217) 90 MG/DL BUN (test code = 2208) 40 MG/DL CREATININE (test code = 2214) 2.05 MG/DL eGFR (2020 CKD-EPI) (test co de = 47631) 27 ML/MIN/1.73 CALC BUN/CREAT (test code = [...] code = 2219) 16 U/L Delfino OrtaLIPID [id number] 00:00:00* Test Item Value Reference Range Interpretation Comme nts CHOLESTEROL (test code = 2210) 212 MG/DL TRIGLYCERIDES (test code = 2232) 80 MG/DL HDL CHOLESTEROL (test code = 2220) 102 MG/DL CALC LDL CHOL (test code = 2237) 93 MG/DL RISK RATIO LDL/HDL (test cod e = 2238) 0.91 RATIO Delfino OrtaCBC W/AUTO [id number] 00:00:00* Test Item Value Reference Range Interpretation [...] ABS NUCLEATED RBCS (test cod e = 01646) 0.00 K/UL COMMENTS (test code = 1016) (NOTE) Delfino OrtaCOMPREHENSIVE METABOLIC [id number] 00:00:00* Test Item Value Reference Range Interpretation Comme nts GLUCOSE (test code = 2217) 90 MG/DL BUN (test code = 2208) 40 MG/DL CREATININE (test code = 2214) 2.05 MG/DL eGFR (2020 CKD-EPI) (test co de = 98331) 27 ML/MIN/1.73 CALC BUN/CREAT (test code = [...] code = 2219) 16 U/L Delfino OrtaLIPID [id number] 00:00:00* Test Item Value Reference Range Interpretation Comme nts CHOLESTEROL (test code = 2210) 212 MG/DL TRIGLYCERIDES (test code = 2232) 80 MG/DL HDL CHOLESTEROL (test code = 2220) 102 MG/DL CALC LDL CHOL (test code = 2237) 93 MG/DL RISK RATIO LDL/HDL (test cod e = 2238) 0.91 RATIO Delfino OrtaCBC W/AUTO [id number] 00:00:00* Test Item Value Reference Range Interpretation [...] ABS NUCLEATED RBCS (test cod e = 01606) 0.00 K/UL COMMENTS (test code = 1016) (NOTE) Delfino OrtaCOMPREHENSIVE METABOLIC [id number] 00:00:00* Test Item Value Reference Range Interpretation Comme nts GLUCOSE (test code = 2217) 90 MG/DL BUN (test code = 2208) 40 MG/DL CREATININE (test code = 2214) 2.05 MG/DL eGFR (2020 CKD-EPI) (test co de = 01062) 27 ML/MIN/1.73 CALC BUN/CREAT (test code = [...] code = 2219) 16 U/L Delfino OrtaLIPID [id number] 00:00:00* Test Item Value Reference Range Interpretation Comme nts CHOLESTEROL (test code = 2210) 212 MG/DL TRIGLYCERIDES (test code = 2232) 80 MG/DL HDL CHOLESTEROL (test code = 2220) 102 MG/DL CALC LDL CHOL (test code = 2237) 93 MG/DL RISK RATIO LDL/HDL (test cod e = 2238) 0.91 RATIO Delfino OrtaCBC W/AUTO [id number] 00:00:00* Test Item Value Reference Range Interpretation [...] ABS NUCLEATED RBCS (test cod e = 02113) 0.00 K/UL COMMENTS (test code = 1016) (NOTE) Delfino OrtaCOMPREHENSIVE METABOLIC [id number] 00:00:00* Test Item Value Reference Range Interpretation Comme nts GLUCOSE (test code = 2217) 90 MG/DL BUN (test code = 2208) 40 MG/DL CREATININE (test code = 2214) 2.05 MG/DL eGFR (2020 CKD-EPI) (test co de = 56895) 27 ML/MIN/1.73 CALC BUN/CREAT (test code = [...] code = 2219) 16 U/L Delfino OrtaLIPID [id number] 00:00:00* Test Item Value Reference Range Interpretation Comme nts CHOLESTEROL (test code = 2210) 212 MG/DL TRIGLYCERIDES (test code = 2232) 80 MG/DL HDL CHOLESTEROL (test code = 2220) 102 MG/DL CALC LDL CHOL (test code = 2237) 93 MG/DL RISK RATIO LDL/HDL (test cod e = 2238) 0.91 RATIO Delfino OrtaCBC W/AUTO [id number] 00:00:00* Test Item Value Reference Range Interpretation [...] ABS NUCLEATED RBCS (test cod e = 12337) 0.00 K/UL COMMENTS (test code = 1016) (NOTE) Delfino OrtaCOMPREHENSIVE METABOLIC [id number] 00:00:00* Test Item Value Reference Range Interpretation Comme nts GLUCOSE (test code = 2217) 90 MG/DL BUN (test code = 2208) 40 MG/DL CREATININE (test code = 2214) 2.05 MG/DL eGFR (2020 CKD-EPI) (test co de = 93504) 27 ML/MIN/1.73 CALC BUN/CREAT (test code = [...] code = 2219) 16 U/L Delfino OrtaLIPID [id number] 00:00:00* Test Item Value Reference Range Interpretation Comme nts CHOLESTEROL (test code = 2210) 212 MG/DL TRIGLYCERIDES (test code = 2232) 80 MG/DL HDL CHOLESTEROL (test code = 2220) 102 MG/DL CALC LDL CHOL (test code = 2237) 93 MG/DL RISK RATIO LDL/HDL (test cod e = 2238) 0.91 RATIO Delfino OrtaCBC W/AUTO [id number] 00:00:00* Test Item Value Reference Range Interpretation [...] ABS NUCLEATED RBCS (test cod e = 72284) 0.00 K/UL COMMENTS (test code = 1016) (NOTE) Delfino OrtaCOMPREHENSIVE METABOLIC [id number] 00:00:00* Test Item Value Reference Range Interpretation Comme nts GLUCOSE (test code = 2217) 90 MG/DL BUN (test code = 2208) 40 MG/DL CREATININE (test code = 2214) 2.05 MG/DL eGFR (2020 CKD-EPI) (test co de = 41277) 27 ML/MIN/1.73 CALC BUN/CREAT (test code = [...] code = 2219) 16 U/L Delfino OrtaLIPID [id number] 00:00:00* Test Item Value Reference Range Interpretation Comme nts CHOLESTEROL (test code = 2210) 212 MG/DL TRIGLYCERIDES (test code = 2232) 80 MG/DL HDL CHOLESTEROL (test code = 2220) 102 MG/DL CALC LDL CHOL (test code = 2237) 93 MG/DL RISK RATIO LDL/HDL (test cod e = 2238) 0.91 RATIO Delfino OrtaCBC W/AUTO [id number] 00:00:00* Test Item Value Reference Range Interpretation [...] ABS NUCLEATED RBCS (test cod e = 71406) 0.00 K/UL COMMENTS (test code = 1016) (NOTE) Delfino OrtaCOMPREHENSIVE METABOLIC [id number] 00:00:00* Test Item Value Reference Range Interpretation Comme nts GLUCOSE (test code = 2217) 90 MG/DL BUN (test code = 2208) 40 MG/DL CREATININE (test code = 2214) 2.05 MG/DL eGFR (2020 CKD-EPI) (test co de = 69645) 27 ML/MIN/1.73 CALC BUN/CREAT (test code = [...] code = 2219) 16 U/L Delfino OrtaLIPID [id number] 00:00:00* Test Item Value Reference Range Interpretation Comme nts CHOLESTEROL (test code = 2210) 212 MG/DL TRIGLYCERIDES (test code = 2232) 80 MG/DL HDL CHOLESTEROL (test code = 2220) 102 MG/DL CALC LDL CHOL (test code = 2237) 93 MG/DL RISK RATIO LDL/HDL (test cod e = 2238) 0.91 RATIO Delfino OrtaCBC W/AUTO [id number] 00:00:00* Test Item Value Reference Range Interpretation [...] ABS NUCLEATED RBCS (test cod e = 59393) 0.00 K/UL COMMENTS (test code = 1016) (NOTE) Delfino OrtaCOMPREHENSIVE METABOLIC [id number] 00:00:00* Test Item Value Reference Range Interpretation Comme nts GLUCOSE (test code = 2217) 90 MG/DL BUN (test code = 2208) 40 MG/DL CREATININE (test code = 2214) 2.05 MG/DL eGFR (2020 CKD-EPI) (test co de = 66166) 27 ML/MIN/1.73 CALC BUN/CREAT (test code = [...] code = 2219) 16 U/L Delfino OrtaLIPID [id number] 00:00:00* Test Item Value Reference Range Interpretation Comme nts CHOLESTEROL (test code = 2210) 212 MG/DL TRIGLYCERIDES (test code = 2232) 80 MG/DL HDL CHOLESTEROL (test code = 2220) 102 MG/DL CALC LDL CHOL (test code = 2237) 93 MG/DL RISK RATIO LDL/HDL (test cod e = 2238) 0.91 RATIO Delfino OrtaCBC W/AUTO [id number] 00:00:00* Test Item Value Reference Range Interpretation [...] ABS NUCLEATED RBCS (test cod e = 72339) 0.00 K/UL COMMENTS (test code = 1016) (NOTE) Delfino OrtaCOMPREHENSIVE METABOLIC [id number] 00:00:00* Test Item Value Reference Range Interpretation Comme nts GLUCOSE (test code = 2217) 90 MG/DL BUN (test code = 2208) 40 MG/DL CREATININE (test code = 2214) 2.05 MG/DL eGFR (2020 CKD-EPI) (test co de = 63609) 27 ML/MIN/1.73 CALC BUN/CREAT (test code = [...] code = 2219) 16 U/L Delfino OrtaLIPID [id number] 00:00:00* Test Item Value Reference Range Interpretation Comme nts CHOLESTEROL (test code = 2210) 212 MG/DL TRIGLYCERIDES (test code = 2232) 80 MG/DL HDL CHOLESTEROL (test code = 2220) 102 MG/DL CALC LDL CHOL (test code = 2237) 93 MG/DL RISK RATIO LDL/HDL (test cod e = 2238) 0.91 RATIO Delfino OrtaCBC W/AUTO [id number] 00:00:00* Test Item Value Reference Range Interpretation [...] ABS NUCLEATED RBCS (test cod e = 36331) 0.00 K/UL COMMENTS (test code = 1016) (NOTE) Delfino OrtaCOMPREHENSIVE METABOLIC [id number] 00:00:00* Test Item Value Reference Range Interpretation [...] code = 2219) 16 U/L Delfino OrtaLIPID [id number] 00:00:00* Test Item Value Reference Range Interpretation Comme nts CHOLESTEROL (test code = 2210) 212 MG/DL TRIGLYCERIDES (test code = 2232) 80 MG/DL HDL CHOLESTEROL (test code = 2220) 102 MG/DL CALC LDL CHOL (test code = 2237) 93 MG/DL RISK RATIO LDL/HDL (test cod e = 2238) 0.91 RATIO Delfino OrtaCBC W/AUTO [id number] 00:00:00* Test Item Value Reference Range Interpretation [...] ABS NUCLEATED RBCS (test cod e = 39423) 0.00 K/UL COMMENTS (test code = 1016) (NOTE) Delfino OrtaCOMPREHENSIVE METABOLIC [id number] 00:00:00* Test Item Value Reference Range Interpretation Comme nts GLUCOSE (test code = 2217) 90 MG/DL BUN (test code = 2208) 40 MG/DL CREATININE (test code = 2214) 2.05 MG/DL eGFR (2020 CKD-EPI) (test co de = 28187) 27 ML/MIN/1.73 CALC BUN/CREAT (test code = [...] code = 2219) 16 U/L Delfino OrtaLIPID [id number] 00:00:00* Test Item Value Reference Range Interpretation Comme nts CHOLESTEROL (test code = 2210) 212 MG/DL TRIGLYCERIDES (test code = 2232) 80 MG/DL HDL CHOLESTEROL (test code = 2220) 102 MG/DL CALC LDL CHOL (test code = 2237) 93 MG/DL RISK RATIO LDL/HDL (test cod e = 2238) 0.91 RATIO Delfino OrtaCBC W/AUTO [id number] 00:00:00* Test Item Value Reference Range Interpretation [...] ABS NUCLEATED RBCS (test cod e = 15353) 0.00 K/UL COMMENTS (test code = 1016) (NOTE) Delfino OrtaCOMPREHENSIVE METABOLIC [id number] 00:00:00* Test Item Value Reference Range Interpretation Comme nts GLUCOSE (test code = 2217) 90 MG/DL BUN (test code = 2208) 40 MG/DL CREATININE (test code = 2214) 2.05 MG/DL eGFR (2020 CKD-EPI) (test co de = 76296) 27 ML/MIN/1.73 CALC BUN/CREAT (test code = [...] code = 2219) 16 U/L Delfino OrtaLIPID [id number] 00:00:00* Test Item Value Reference Range Interpretation Comme nts CHOLESTEROL (test code = 2210) 212 MG/DL TRIGLYCERIDES (test code = 2232) 80 MG/DL HDL CHOLESTEROL (test code = 2220) 102 MG/DL CALC LDL CHOL (test code = 2237) 93 MG/DL RISK RATIO LDL/HDL (test cod e = 2238) 0.91 RATIO Delfino OrtaCBC W/AUTO [id number] 00:00:00* Test Item Value Reference Range Interpretation [...] ABS NUCLEATED RBCS (test cod e = 39884) 0.00 K/UL COMMENTS (test code = 1016) (NOTE) Delfino OrtaCOMPREHENSIVE METABOLIC [id number] 00:00:00* Test Item Value Reference Range Interpretation Comme nts GLUCOSE (test code = 2217) 90 MG/DL BUN (test code = 2208) 40 MG/DL CREATININE (test code = 2214) 2.05 MG/DL eGFR (2020 CKD-EPI) (test co de = 97250) 27 ML/MIN/1.73 CALC BUN/CREAT (test code = [...] code = 2219) 16 U/L Delfino OrtaLIPID [id number] 00:00:00* Test Item Value Reference Range Interpretation Comme nts CHOLESTEROL (test code = 2210) 212 MG/DL TRIGLYCERIDES (test code = 2232) 80 MG/DL HDL CHOLESTEROL (test code = 2220) 102 MG/DL CALC LDL CHOL (test code = 2237) 93 MG/DL RISK RATIO LDL/HDL (test cod e = 2238) 0.91 RATIO Delfino OrtaCBC W/AUTO [id number] 00:00:00* Test Item Value Reference Range Interpretation [...] ABS NUCLEATED RBCS (test cod e = 72715) 0.00 K/UL COMMENTS (test code = 1016) (NOTE) Delfino OrtaCOMPREHENSIVE METABOLIC [id number] 00:00:00* Test Item Value Reference Range Interpretation Comme nts GLUCOSE (test code = 2217) 90 MG/DL BUN (test code = 2208) 40 MG/DL CREATININE (test code = 2214) 2.05 MG/DL eGFR (2020 CKD-EPI) (test co de = 71028) 27 ML/MIN/1.73 CALC BUN/CREAT (test code = [...] code = 2219) 16 U/L Delfino OrtaLIPID [id number] 00:00:00* Test Item Value Reference Range Interpretation Comme nts CHOLESTEROL (test code = 2210) 212 MG/DL TRIGLYCERIDES (test code = 2232) 80 MG/DL HDL CHOLESTEROL (test code = 2220) 102 MG/DL CALC LDL CHOL (test code = 2237) 93 MG/DL RISK RATIO LDL/HDL (test cod e = 2238) 0.91 RATIO Delfino OrtaCBC W/AUTO [id number] 00:00:00* Test Item Value Reference Range Interpretation [...] ABS NUCLEATED RBCS (test cod e = 54507) 0.00 K/UL COMMENTS (test code = 1016) (NOTE) Delfino OrtaCOMPREHENSIVE METABOLIC [id number] 00:00:00* Test Item Value Reference Range Interpretation Comme nts GLUCOSE (test code = 2217) 90 MG/DL BUN (test code = 2208) 40 MG/DL CREATININE (test code = 2214) 2.05 MG/DL eGFR (2020 CKD-EPI) (test co de = 75212) 27 ML/MIN/1.73 CALC BUN/CREAT (test code = [...] code = 2219) 16 U/L Delfino OrtaLIPID [id number] 00:00:00* Test Item Value Reference Range Interpretation Comme nts CHOLESTEROL (test code = 2210) 212 MG/DL TRIGLYCERIDES (test code = 2232) 80 MG/DL HDL CHOLESTEROL (test code = 2220) 102 MG/DL CALC LDL CHOL (test code = 2237) 93 MG/DL RISK RATIO LDL/HDL (test cod e = 2238) 0.91 RATIO Delfino OrtaCBC W/AUTO [id number] 00:00:00* Test Item Value Reference Range Interpretation [...] ABS NUCLEATED RBCS (test cod e = 04640) 0.00 K/UL COMMENTS (test code = 1016) (NOTE) Delfino OrtaCOMPREHENSIVE METABOLIC [id number] 00:00:00* Test Item Value Reference Range Interpretation Comme nts GLUCOSE (test code = 2217) 90 MG/DL BUN (test code = 2208) 40 MG/DL CREATININE (test code = 2214) 2.05 MG/DL eGFR (2020 CKD-EPI) (test co de = 30831) 27 ML/MIN/1.73 CALC BUN/CREAT (test code = [...] code = 2219) 16 U/L Delfino OrtaLIPID [id number] 00:00:00* Test Item Value Reference Range Interpretation Comme nts CHOLESTEROL (test code = 2210) 212 MG/DL TRIGLYCERIDES (test code = 2232) 80 MG/DL HDL CHOLESTEROL (test code = 2220) 102 MG/DL CALC LDL CHOL (test code = 2237) 93 MG/DL RISK RATIO LDL/HDL (test cod e = 2238) 0.91 RATIO Delfino OrtaCBC W/AUTO [id number] 00:00:00* Test Item Value Reference Range Interpretation [...] ABS NUCLEATED RBCS (test cod e = 54736) 0.00 K/UL COMMENTS (test code = 1016) (NOTE) Delfino OrtaCOMPREHENSIVE METABOLIC [id number] 00:00:00* Test Item Value Reference Range Interpretation Comme nts GLUCOSE (test code = 2217) 90 MG/DL BUN (test code = 2208) 40 MG/DL CREATININE (test code = 2214) 2.05 MG/DL eGFR (2020 CKD-EPI) (test co de = 26887) 27 ML/MIN/1.73 CALC BUN/CREAT (test code = [...] code = 2219) 16 U/L Delfino OrtaLIPID [id number] 00:00:00* Test Item Value Reference Range Interpretation Comme nts CHOLESTEROL (test code = 2210) 212 MG/DL TRIGLYCERIDES (test code = 2232) 80 MG/DL HDL CHOLESTEROL (test code = 2220) 102 MG/DL CALC LDL CHOL (test code = 2237) 93 MG/DL RISK RATIO LDL/HDL (test cod e = 2238) 0.91 RATIO Delfino OrtaCBC W/AUTO [id number] 00:00:00* Test Item Value Reference Range Interpretation [...] ABS NUCLEATED RBCS (test cod e = 52980) 0.00 K/UL COMMENTS (test code = 1016) (NOTE) Delfino OrtaCOMPREHENSIVE METABOLIC [id number] 00:00:00* Test Item Value Reference Range Interpretation Comme nts GLUCOSE (test code = 2217) 90 MG/DL BUN (test code = 2208) 40 MG/DL CREATININE (test code = 2214) 2.05 MG/DL eGFR (2020 CKD-EPI) (test co de = 16030) 27 ML/MIN/1.73 CALC BUN/CREAT (test code = [...] code = 2219) 16 U/L Delfino OrtaLIPID [id number] 00:00:00* Test Item Value Reference Range Interpretation Comme nts CHOLESTEROL (test code = 2210) 212 MG/DL TRIGLYCERIDES (test code = 2232) 80 MG/DL HDL CHOLESTEROL (test code = 2220) 102 MG/DL CALC LDL CHOL (test code = 2237) 93 MG/DL RISK RATIO LDL/HDL (test cod e = 2238) 0.91 RATIO Delfino OrtaCBC W/AUTO [id number] 00:00:00* Test Item Value Reference Range Interpretation [...] ABS NUCLEATED RBCS (test cod e = 64408) 0.00 K/UL COMMENTS (test code = 1016) (NOTE) Delfino OrtaCOMPREHENSIVE METABOLIC [id number] 00:00:00* Test Item Value Reference Range Interpretation Comme nts GLUCOSE (test code = 2217) 90 MG/DL BUN (test code = 2208) 40 MG/DL CREATININE (test code = 2214) 2.05 MG/DL eGFR (2020 CKD-EPI) (test co de = 61872) 27 ML/MIN/1.73 CALC BUN/CREAT (test code = [...] code = 2219) 16 U/L Delfino OrtaLIPID [id number] 00:00:00* Test Item Value Reference Range Interpretation Comme nts CHOLESTEROL (test code = 2210) 212 MG/DL TRIGLYCERIDES (test code = 2232) 80 MG/DL HDL CHOLESTEROL (test code = 2220) 102 MG/DL CALC LDL CHOL (test code = 2237) 93 MG/DL RISK RATIO LDL/HDL (test cod e = 2238) 0.91 RATIO Delfino OrtaCBC W/AUTO [id number] 00:00:00* Test Item Value Reference Range Interpretation [...] ABS NUCLEATED RBCS (test cod e = 67341) 0.00 K/UL COMMENTS (test code = 1016) (NOTE) Delfino OrtaCOMPREHENSIVE METABOLIC [id number] 00:00:00* Test Item Value Reference Range Interpretation Comme nts GLUCOSE (test code = 2217) 90 MG/DL BUN (test code = 2208) 40 MG/DL CREATININE (test code = 2214) 2.05 MG/DL eGFR (2020 CKD-EPI) (test co de = 74760) 27 ML/MIN/1.73 CALC BUN/CREAT (test code = [...] code = 2219) 16 U/L Delfino OrtaLIPID [id number] 00:00:00* Test Item Value Reference Range Interpretation Comme nts CHOLESTEROL (test code = 2210) 212 MG/DL TRIGLYCERIDES (test code = 2232) 80 MG/DL HDL CHOLESTEROL (test code = 2220) 102 MG/DL CALC LDL CHOL (test code = 2237) 93 MG/DL RISK RATIO LDL/HDL (test cod e = 2238) 0.91 RATIO Delfino Schumacher YouCBC W/AUTO [id number] 00:00:00* Test Item Value Reference Range Interpretation [...] ABS NUCLEATED RBCS (test cod e = 25642) 0.00 K/UL COMMENTS (test code = 1016) (NOTE) Delfino OrtaCOMPREHENSIVE METABOLIC [id number] 00:00:00* Test Item Value Reference Range Interpretation Comme nts GLUCOSE (test code = 2217) 90 MG/DL BUN (test code = 2208) 40 MG/DL CREATININE (test code = 2214) 2.05 MG/DL eGFR (2020 CKD-EPI) (test co de = 05570) 27 ML/MIN/1.73 CALC BUN/CREAT (test code = [...] code = 2219) 16 U/L Delfino OrtaLIPID [id number] 00:00:00* Test Item Value Reference Range Interpretation Comme nts CHOLESTEROL (test code = 2210) 212 MG/DL TRIGLYCERIDES (test code = 2232) 80 MG/DL HDL CHOLESTEROL (test code = 2220) 102 MG/DL CALC LDL CHOL (test code = 2237) 93 MG/DL RISK RATIO LDL/HDL (test cod e = 2238) 0.91 RATIO Delfino OrtaCBC W/AUTO [id number] 00:00:00* Test Item Value Reference Range Interpretation [...] ABS NUCLEATED RBCS (test cod e = 15586) 0.00 K/UL COMMENTS (test code = 1016) (NOTE) Delfino Schumacher YouCOMPREHENSIVE METABOLIC [id number] 00:00:00* Test Item Value Reference Range Interpretation Comme nts GLUCOSE (test code = 2217) 90 MG/DL BUN (test code = 2208) 40 MG/DL CREATININE (test code = 2214) 2.05 MG/DL eGFR (2020 CKD-EPI) (test co de = 83424) 27 ML/MIN/1.73 CALC BUN/CREAT (test code = [...] code = 2219) 16 U/L Delfino OrtaLIPID [id number] 00:00:00* Test Item Value Reference Range Interpretation Comme nts CHOLESTEROL (test code = 2210) 212 MG/DL TRIGLYCERIDES (test code = 2232) 80 MG/DL HDL CHOLESTEROL (test code = 2220) 102 MG/DL CALC LDL CHOL (test code = 2237) 93 MG/DL RISK RATIO LDL/HDL (test cod e = 2238) 0.91 RATIO Delfino Schumacher YouCBC W/AUTO [id number] 00:00:00* Test Item Value Reference Range Interpretation [...] ABS NUCLEATED RBCS (test cod e = 56888) 0.00 K/UL COMMENTS (test code = 1016) (NOTE) Delfino OrtaCOMPREHENSIVE METABOLIC [id number] 00:00:00* Test Item Value Reference Range Interpretation Comme nts GLUCOSE (test code = 2217) 90 MG/DL BUN (test code = 2208) 40 MG/DL CREATININE (test code = 2214) 2.05 MG/DL eGFR (2020 CKD-EPI) (test co de = 56963) 27 ML/MIN/1.73 CALC BUN/CREAT (test code = [...] code = 2219) 16 U/L Delfino Schumacher [facility] with [id number] 19:43:14* Test Item Value Reference Range Interpretation [...] 33.6 g/dL 31.6-35.1 RDW-SD (test code = 34003-7) 54.3 fL 39.0-49.9 H RDW-CV (test code = 788-0) 13.4 % 12.0-15.5 PLT (test code = 777-3) 133 166-358 L MPV (test code = 01345-7) 11.5 fL 9.5-12.9 IPF % (test code = 0340522984) 5.6 % 1.3-7.7 Platelet count measured by fluorescence method. NRBC/100 WBC (test code = 5157378261) 0.0 0.0-10.0 NRBC x10^3 (test code = 0579662274) See_Comment [Automated Diurnala ge] The system which generated this result transmitted reference range: 10*3/?L. The reference range was not used to interpret this result as normal/abnormal. GRAN MAT (NEUT) % (test code = 770-8) 91.9 % IMM GRAN % (test code = 0918629043) 0.30 % LYMPH % (test code = 736-9) 5.6 % MONO % (test code = 5905-5) 2.1 % EOS % (test code = 713-8) 0.0 % BASO % (test code = 706-2) 0.1 % GRAN MAT x10^3(ANC) (test code = 1774568064) 7.05 10*3/uL 1.88-7.09 IMM GRAN x10^3 (test code = 0233800479) 0.00-0.06 LYMPH x10^3 (test code = 731-0) 0.43 10*3/uL 1.32-3.29 L MONO x10^3 (test code = 742-7) 0.16 10*3/uL 0.33-0.92 L EOS x10^3 (test code = 711-2) 0.03-0.39 L BASO x10^3 (test code = 704-7) 0.01-0.07 Lab Interpretation (test code = 71182-9) [facility]-17 19:32:09* Test Item Value Reference Range Interpretation Comme nts NA (test code = 0348515003) 139 mmol/L 135-145 K (test code = 9840405371) 3.9 mmol/L 3.5-5.0 CL (test code = 2473165317) 115 mmol/L 98-108 H CO2 TOTAL (test code = 8009407927) 16 mmol/L 23-31 L AGAP (test code = 6114598317) 8 2-16 BUN (test code = 7082950134) 30 mg/dL 7-23 H GLUCOSE (test code = 7195103465) 173 mg/dL 70-110 H CREATININE (test code = 2160-0) 1.69 mg/dL 0.50-1.04 H TOTAL BILI (test code = 2479508462) 0.4 mg/dL 0.1-1.1 CALCIUM (test code = 7939706805) 10.1 mg/dL 8.6-10.6 T PROTEIN (test code = 5785261863) 8.5 g/dL 6.3-8.2 H ALBUMIN (test code = 6035224487) 3.9 g/dL 3.5-5.0 ALK PHOS (test code = 6470969912) 76 U/L 34-122 ALTv (test code = 1742-6) 35 U/L 5-35 AST(SGOT) (test code = 6171051583) 54 U/L 13-40 H eGFR (test code = 12612-3) 34.4 mL/min/1.73m2 CKD-EPI eGFR (2020). Assuming creatinine has been stable day-to-day for at least three months, the eGFR indicates Category G3b (30 - 44 mL/min/1.73 m2) Lab Interpretation (test code = 40043-2) [facility]normal [facility]-17 15:37:06* Test Item Value Reference Range Interpretation Comme nts Height (test code = 0801219777) 63 in Weight (test code = 6614912510) 140 lbs Systolic BP (test code = 1922459555) 118 mmHg Diastolic BP (test code = 1310999292) 58 mmHg Heart Rate (test code = 6187546351) 78 bpm BSA (test code = 6505197641) 1.66 m2 Ao root diam (test code = 4652568952) 2.90 cm Aortic root (test code = 6067220929) 2.9 cm Ao root annulus (test code = 3349749896) 2.9 cm LVOT diameter (test code = 8898980031) 1.96 cm LVOT area (test code = 5206879468) 3.00 cm2 LA size (test code = 0152335158) 3.2 cm LVIDD (test code = 2895889310) 2.90 cm Left Ventricular End Diastolic Volume by Teichholz Method (test code = 1883773) 32.6 mL IVS (test code = 6482111087) 1.26 cm Interventricular Septum Diastolic Thickness by 2D (test code = 4135153) 1.26 cm LVPWD (test code = 1549790837) 1.23 cm PW (test code = 7469103663) 1.23 cm 0.6-1.1 EF(Teich) (test code = 1951666307) 55.00 % LVIDS (test code = 4015684752) 2.11 cm Left Ventricular End Systolic Volume by Teichholz Method (test code = 7234616) 14.7 mL FS (test code = 5323161926) 27 % EF - 2D (test code = 57098544) 55.00 % LAV(MOD-sp4) (test code = 4820296982) 20.20 mL E wave decelartion time (test code = 7245416366) 0.18 s MV Peak E Barber (test code = 9757737362) 72.8 cm/s MV stenosis pressure 1/2 time (test code = 1951632228) 51.2 ms MV Peak A Barber (test code = 1004448318) 73.4 cm/s E/A ratio (test code = 4020960026) 0.99 ratio MV Prop V (test code = 1349117931) 180.80 cm/s MV E/e' septal (test code = 8953057081) 10.8 cm/s Tapse (test code = 0699149078) 2.08 cm LVOT stroke volume (test code = 1223716054) 73.30 cm3 LVOT peak barber (test code = 5182105767) 125.3 cm/s LVOT mn grad (test code = 4958529779) 3.6 mmHg AV LVOT peak gradient (test code = 2332500264) 6.3 mmHg LVOT peak VTI (test code = 7173491401) 24.3 cm LV V1 mean (test code = 0062257469) 89.60 cm/s Aortic valve mean velocity (test code = 8471225694) 236.9 cm/s Ao peak barber (test code = 8027723782) 333.6 cm/s Ao VTI (test code = 9935664458) 58.2 cm AV area by cont VTI (test code = 0131910074) 1.3 cm2 AV area peak barber (test code = 2941388201) 1.1 cm2 Ao max PG (test code = 8433741435) 44.60 mm[Hg] AV peak gradient (test code = 1236802493) 44.6 mmHg AV valve area (test code = 9106131303) 1.26 cm2 AV mean gradient (test code = 6452896350) 24.9 mmHg Radiology Study observation (narrative) (test code = 09968-6) GARRY (test code = GARRY) Table formatting [...] 2D, color flow Doppler and spectral Doppler. [facility] WITH [id number] 19:09:02* Test Item Value Reference Range Interpretation [...] 33.5 g/dL 31.6-35.1 RDW-SD (test code = 70318-1) 55.2 fL 39.0-49.9 H RDW-CV (test code = 788-0) 13.4 % 12.0-15.5 PLT (test code = 777-3) 142 166-358 L MPV (test code = 36349-7) 11.4 fL 9.5-12.9 NRBC/100 WBC (test code = 4146921895) 0.0 0.0-10.0 NRBC x10^3 (test code = 1963177181) See_Comment [Automated messa ge] The system which generated this result transmitted reference range: 10*3/?L. The reference range was not used to interpret this result as normal/abnormal. GRAN MAT (NEUT) % (test code = 770-8) 62.9 % IMM GRAN % (test code = 6590155763) 0.40 % LYMPH % (test code = 736-9) 27.3 % MONO % (test code = 5905-5) 9.0 % EOS % (test code = 713-8) 0.2 % BASO % (test code = 706-2) 0.2 % GRAN MAT x10^3(ANC) (test code = 2454932516) 3.30 10*3/uL 1.88-7.09 IMM GRAN x10^3 (test code = 8497289697) 0.00-0.06 LYMPH x10^3 (test code = 731-0) 1.43 10*3/uL 1.32-3.29 MONO x10^3 (test code = 742-7) 0.47 10*3/uL 0.33-0.92 EOS x10^3 (test code = 711-2) 0.03-0.39 L BASO x10^3 (test code = 704-7) 0.01-0.07 Lab Interpretation (test code = 47619-2) [facility] [place] [id number] 18:52:52* Test Item Value Reference Range Interpretation Comme nts TROPONIN I (test code = 2784591038) 0.160 ng/mL <=0.034 H GARRY (test code [...] of biotin. Lab Interpretation (test code = 87472-4) [facility]normal [facility] [place]OLIC PANEL (12126)2023-05-16 18:41:47* Test Item Value Reference Range Interpretation Comme nts NA (test code = 4190189161) 143 mmol/L 135-145 K (test code = 7672426185) 3.9 mmol/L 3.5-5.0 CL (test code = 6985049048) 116 mmol/L 98-108 H CO2 TOTAL (test code = 8814074855) 15 mmol/L 23-31 L AGAP (test code = 2361115972) 12 2-16 BUN (test code = 7049621640) 29 mg/dL 7-23 H GLUCOSE (test code = 6084694560) 104 mg/dL 70-110 CREATININE (test code = 2160-0) 1.90 mg/dL 0.50-1.04 H TOTAL BILI (test code = 6863313015) 0.5 mg/dL 0.1-1.1 CALCIUM (test code = 0381954801) 10.2 mg/dL 8.6-10.6 T PROTEIN (test code = 3087291953) 9.8 g/dL 6.3-8.2 H ALBUMIN (test code = 1063249867) 4.6 g/dL 3.5-5.0 ALK PHOS (test code = 3665291448) 103 U/L 34-122 ALTv (test code = 1742-6) 44 U/L 5-35 H AST(SGOT) (test code = 1572624096) 54 U/L 13-40 H eGFR (test code = 77300-7) 29.9 mL/min/1.73m2 Lab Interpretation (test cod e = 51933-3) [facility]normal [facility] [place], [id number] 18:41:26* Test Item Value Reference Range Interpretation Comme nts LIPASE (test code = 5136259940) 123 U/L 0-220 Lab Interpretation (test cod e = 99951-1) Normal [facility] Venous Blood [id number] 18:29:21 * Test Item Value Reference Range Interpretation Comme nts PH (test code = 4518668228) 7.25 7.32-7.42 L PCO2 BEBA (test code = 9419836085) 40 41-51 L PO2 BEBA (test code = 7806293188) 27 25-40 HCO3 BEBA (test code = 9023695625) 17 24-28 L AC VBE(BEAKER) (test code = 6973843445) -9.3 mEq/L Lab Interpretation (test cod e = 71845-5) [facility]normal [facility] [place] CHEST 1 [id number] 18:03:51HISTORY: Cough and SOB. TECHNIQUE: Portable AP [...] Acute findings could be secondary to viral infection.[facility] [place]AU[place], [id number] 08:50:21SPECIMEN NUMBER: [id number] CULTURE, URINE SPECIMEN NUMBER: [id number] SPECIMEN COMMENT: URINE SOURCE: URINE REPORT STATUS: FINAL FINAL REPORT: 05/11/2023 10-50,000 CFU/ML UROGENITAL KRALA PRESENT NO COMMON PATHOGENSCULTURE, [id number] 00:00:00* Test Item Value Reference Range Interpretation Comme nts CULTURE, URINE (test code = 68828) SPECIMEN NUMBER: [id number] Delfino Cedeño, [id number] 00:00:00* Test Item Value Reference Range Interpretation Comme nts CULTURE, URINE (test code = 86582) SPECIMEN NUMBER: [id number] Delfino Cedeño, [id number] 00:00:00* Test Item Value Reference Range Interpretation Comme nts CULTURE, URINE (test code = 54299) SPECIMEN NUMBER: [id number] Delfino Cedeño, [id number] 00:00:00* Test Item Value Reference Range Interpretation Comme nts CULTURE, URINE (test code = 56321) SPECIMEN NUMBER: [id number] Delfino Cedeño, [id number] 00:00:00* Test Item Value Reference Range Interpretation Comme nts CULTURE, URINE (test code = 91021) SPECIMEN NUMBER: [id number] Delfino Cedeño, [id number] 00:00:00* Test Item Value Reference Range Interpretation Comme nts CULTURE, URINE (test code = 98623) SPECIMEN NUMBER: [id number] Delfino Cedeño, [id number] 00:00:00* Test Item Value Reference Range Interpretation Comme nts CULTURE, URINE (test code = 69865) SPECIMEN NUMBER: [id number] Delfino Cedeño, [id number] 00:00:00* Test Item Value Reference Range Interpretation Comme nts CULTURE, URINE (test code = 85509) SPECIMEN NUMBER: [id number] Delfino Cedeño, [id number] 00:00:00* Test Item Value Reference Range Interpretation Comme nts CULTURE, URINE (test code = 00766) SPECIMEN NUMBER: [id number] Delfino Cedeño, [id number] 00:00:00* Test Item Value Reference Range Interpretation Comme nts CULTURE, URINE (test code = 08992) SPECIMEN NUMBER: [id number] Delfino Cedeño [id number] 00:00:00* Test Item Value Reference Range Interpretation Comme nts CULTURE, URINE (test code = 29014) SPECIMEN NUMBER: [id number] Delfino Cedeño [id number] 00:00:00* Test Item Value Reference Range Interpretation Comme nts CULTURE, URINE (test code = 75958) SPECIMEN NUMBER: [id number] Delfino Cedeño [id number] 00:00:00* Test Item Value Reference Range Interpretation Comme nts CULTURE, URINE (test code = 36360) SPECIMEN NUMBER: [id number] Delfino Cedeño [id number] 00:00:00* Test Item Value Reference Range Interpretation Comme nts CULTURE, URINE (test code = 43059) SPECIMEN NUMBER: [id number] Delfino Cedeño, [id number] 00:00:00* Test Item Value Reference Range Interpretation Comme nts CULTURE, URINE (test code = 68868) SPECIMEN NUMBER: [id number] Delfino Cedeño, [id number] 00:00:00* Test Item Value Reference Range Interpretation Comme nts CULTURE, URINE (test code = 19496) SPECIMEN NUMBER: [id number] Delfino Cedeño, [id number] 00:00:00* Test Item Value Reference Range Interpretation Comme nts CULTURE, URINE (test code = 36143) SPECIMEN NUMBER: [id number] Delfino Cedeño, [id number] 00:00:00* Test Item Value Reference Range Interpretation Comme nts CULTURE, URINE (test code = 48035) SPECIMEN NUMBER: [id number] Delfino Cedeño, [id number] 00:00:00* Test Item Value Reference Range Interpretation Comme nts CULTURE, URINE (test code = 14971) SPECIMEN NUMBER: [id number] Delfino Cedeño, [id number] 00:00:00* Test Item Value Reference Range Interpretation Comme nts CULTURE, URINE (test code = 87625) SPECIMEN NUMBER: [id number] Delfino SarmientoLTURE, [id number] 00:00:00* Test Item Value Reference Range Interpretation Comme nts CULTURE, URINE (test code = 42265) SPECIMEN NUMBER: [id number] Delfino SarmientoLTNIALL, [id number] 00:00:00* Test Item Value Reference Range Interpretation Comme nts CULTURE, URINE (test code = 17190) SPECIMEN NUMBER: [id number] Delfino SarmientoLTURE, [id number] 00:00:00* Test Item Value Reference Range Interpretation Comme nts CULTURE, URINE (test code = 61493) SPECIMEN NUMBER: [id number] Delfino Cedeño, [id number] 00:00:00* Test Item Value Reference Range Interpretation Comme nts CULTURE, URINE (test code = 90555) SPECIMEN NUMBER: [id number] Delfino OrtaVAGINAL PATHOGENS DNA [id number] 14:05:30* Test Item Value Reference Range Interpretation Comme nts DIANNA SPECIES (test code = 20997) NEGATIVE NEGATIVE G. VAGINALIS (test code = 78285) NEGATIVE NEGATIVE T. VAGINALIS (test code = 51558) NEGATIVE NEGATIVE Note: [facility] VPIII Microbial Identification Testis a DNA probe test intended for use in the detectionand identification of Dianna species, Gardnerellavaginalis and Trichomonas vaginalis nucleic acid. CT/NG, NAAT, [id number] 12:17:23* Test Item Value Reference Range Interpretation Comme nts CHLAMYDIA, NAAT, URINE (test code = 85503) NEGATIVE NEGATIVE Testing is perfo rmed with Epifanio JOSE 6800/8800 systems usingreal-time polymerase chain reaction (PCR) method. A negative result does not exclude low level infection, specimensampling error, or collection error. GONORRHEA, NAAT, URINE (test code = 18920) NEGATIVE NEGATIVE Testing is perfo rmed with Epifanio JOSE 6800/8800 systems usingreal-time polymerase chain reaction (PCR) method. A negative result does not exclude low level infection, specimensampling error, or collection error. UNLESS OTHERWISE INDICATED, ALL TESTING PERFORMED AT [facility] [address] [place] [address] [address] FORMER: ABBI SHORT M.D. CLIA NUMBER [id number] [facility] [place]. [id number] VAGINAL PATHOGENS DNA [id number] 00:00:00* Test Item Value Reference Range Interpretation Comme nts DIANNA SPECIES (test code = ) NEGATIVE G. VAGINALIS (test code = 76523) NEGATIVE T. VAGINALIS (test code = ) NEGATIVE Delfino F AustinCT/NG, TMA, [id number] 00:00:00* Test Item Value Reference Range Interpretation Comme nts CHLAMYDIA, NAAT, URINE (test code = 86905) NEGATIVE GONORRHEA, NAAT, URINE (test code = 20189) NEGATIVE Delfino F AustinVAGINAL PATHOGENS DNA [id number] 00:00:00* Test Item Value Reference Range Interpretation Comme nts DIANNA SPECIES (test code = ) NEGATIVE G. VAGINALIS (test code = 63973) NEGATIVE T. VAGINALIS (test code = 05248) NEGATIVE Delfino F AustinCT/NG, TMA, [id number] 00:00:00* Test Item Value Reference Range Interpretation Comme nts CHLAMYDIA, NAAT, URINE (test code = 54235) NEGATIVE GONORRHEA, NAAT, URINE (test code = 50732) NEGATIVE Delfino F AustinVAGINAL PATHOGENS DNA [id number] 00:00:00* Test Item Value Reference Range Interpretation Comme nts DIANNA SPECIES (test code = ) NEGATIVE G. VAGINALIS (test code = 00269) NEGATIVE T. VAGINALIS (test code = 36238) NEGATIVE Delfino F AustinCT/NG, TMA, [id number] 00:00:00* Test Item Value Reference Range Interpretation Comme nts CHLAMYDIA, NAAT, URINE (test code = 28999) NEGATIVE GONORRHEA, NAAT, URINE (test code = 90580) NEGATIVE Delfino F AustinVAGINAL PATHOGENS DNA [id number] 00:00:00* Test Item Value Reference Range Interpretation Comme nts DIANNA SPECIES (test code = 05611) NEGATIVE G. VAGINALIS (test code = 81256) NEGATIVE T. VAGINALIS (test code = 55073) NEGATIVE Delfino F AustinVAGINAL PATHOGENS DNA [id number] 00:00:00* Test Item Value Reference Range Interpretation Comme nts DIANNA SPECIES (test code = ) NEGATIVE G. VAGINALIS (test code = 95890) NEGATIVE T. VAGINALIS (test code = ) NEGATIVE Delfino Schumacher AustinCT/NG, TMA, [id number] 00:00:00* Test Item Value Reference Range Interpretation Comme nts CHLAMYDIA, NAAT, URINE (test code = 43139) NEGATIVE GONORRHEA, NAAT, URINE (test code = 61833) NEGATIVE Delfino F AustinVAGINAL PATHOGENS DNA [id number] 00:00:00* Test Item Value Reference Range Interpretation Comme nts DIANNA SPECIES (test code = ) NEGATIVE G. VAGINALIS (test code = 27605) NEGATIVE T. VAGINALIS (test code = ) NEGATIVE Delfino F AustinCT/NG, TMA, [id number] 00:00:00* Test Item Value Reference Range Interpretation Comme nts CHLAMYDIA, NAAT, URINE (test code = 72491) NEGATIVE GONORRHEA, NAAT, URINE (test code = 25574) NEGATIVE Delfino F AustinCT/NG, TMA, [id number] 00:00:00* Test Item Value Reference Range Interpretation Comme nts CHLAMYDIA, NAAT, URINE (test code = 18986) NEGATIVE GONORRHEA, NAAT, URINE (test code = 03945) NEGATIVE Delfino F AustinVAGINAL PATHOGENS DNA [id number] 00:00:00* Test Item Value Reference Range Interpretation Comme nts DIANNA SPECIES (test code = ) NEGATIVE G. VAGINALIS (test code = 39587) NEGATIVE T. VAGINALIS (test code = 79443) NEGATIVE Delfino F AustinCT/NG, TMA, [id number] 00:00:00* Test Item Value Reference Range Interpretation Comme nts CHLAMYDIA, NAAT, URINE (test code = 84876) NEGATIVE GONORRHEA, NAAT, URINE (test code = 93929) NEGATIVE Delfino F AustinVAGINAL PATHOGENS DNA [id number] 00:00:00* Test Item Value Reference Range Interpretation Comme nts DIANNA SPECIES (test code = ) NEGATIVE G. VAGINALIS (test code = 96069) NEGATIVE T. VAGINALIS (test code = 93574) NEGATIVE Delfino F AustinCT/NG, TMA, [id number] 00:00:00* Test Item Value Reference Range Interpretation Comme nts CHLAMYDIA, NAAT, URINE (test code = 79036) NEGATIVE GONORRHEA, NAAT, URINE (test code = 60546) NEGATIVE Delfino F AustinVAGINAL PATHOGENS DNA [id number] 00:00:00* Test Item Value Reference Range Interpretation Comme nts DIANNA SPECIES (test code = ) NEGATIVE G. VAGINALIS (test code = 47990) NEGATIVE T. VAGINALIS (test code = 37293) NEGATIVE Delfino F AustinCT/NG, TMA, [id number] 00:00:00* Test Item Value Reference Range Interpretation Comme nts CHLAMYDIA, NAAT, URINE (test code = 29020) NEGATIVE GONORRHEA, NAAT, URINE (test code = 12933) NEGATIVE Delfino F AustinVAGINAL PATHOGENS DNA [id number] 00:00:00* Test Item Value Reference Range Interpretation Comme nts DIANNA SPECIES (test code = ) NEGATIVE G. VAGINALIS (test code = 96534) NEGATIVE T. VAGINALIS (test code = 14264) NEGATIVE Delfino F AustinCT/NG, TMA, [id number] 00:00:00* Test Item Value Reference Range Interpretation Comme nts CHLAMYDIA, NAAT, URINE (test code = 09141) NEGATIVE GONORRHEA, NAAT, URINE (test code = 09878) NEGATIVE Delfino F AustinVAGINAL PATHOGENS DNA [id number] 00:00:00* Test Item Value Reference Range Interpretation Comme nts DIANNA SPECIES (test code = ) NEGATIVE G. VAGINALIS (test code = 31987) NEGATIVE T. VAGINALIS (test code = 85681) NEGATIVE Delfino F AustinCT/NG, TMA, [id number] 00:00:00* Test Item Value Reference Range Interpretation Comme nts CHLAMYDIA, NAAT, URINE (test code = 96708) NEGATIVE GONORRHEA, NAAT, URINE (test code = 89194) NEGATIVE Delfino F AustinVAGINAL PATHOGENS DNA [id number] 00:00:00* Test Item Value Reference Range Interpretation Comme nts DIANNA SPECIES (test code = 85200) NEGATIVE G. VAGINALIS (test code = 32088) NEGATIVE T. VAGINALIS (test code = 70429) NEGATIVE Delfino Schumacher AustinCT/NG, TMA, [id number] 00:00:00* Test Item Value Reference Range Interpretation Comme nts CHLAMYDIA, NAAT, URINE (test code = 26015) NEGATIVE GONORRHEA, NAAT, URINE (test code = 71594) NEGATIVE Delfino Schumacher AustinVAGINAL PATHOGENS DNA [id number] 00:00:00* Test Item Value Reference Range Interpretation Comme nts DIANNA SPECIES (test code = ) NEGATIVE G. VAGINALIS (test code = 65062) NEGATIVE T. VAGINALIS (test code = 25375) NEGATIVE Delfino Schumacher AustinCT/NG, TMA, [id number] 00:00:00* Test Item Value Reference Range Interpretation Comme nts CHLAMYDIA, NAAT, URINE (test code = 87707) NEGATIVE GONORRHEA, NAAT, URINE (test code = 51188) NEGATIVE Delfino Schumacher AustinVAGINAL PATHOGENS DNA [id number] 00:00:00* Test Item Value Reference Range Interpretation Comme nts DIANNA SPECIES (test code = ) NEGATIVE G. VAGINALIS (test code = 77471) NEGATIVE T. VAGINALIS (test code = 64424) NEGATIVE Delfino Schumacher AustinCT/NG, TMA, [id number] 00:00:00* Test Item Value Reference Range Interpretation Comme nts CHLAMYDIA, NAAT, URINE (test code = 73673) NEGATIVE GONORRHEA, NAAT, URINE (test code = 15963) NEGATIVE Delfino Schumacher AustinVAGINAL PATHOGENS DNA [id number] 00:00:00* Test Item Value Reference Range Interpretation Comme nts DIANNA SPECIES (test code = ) NEGATIVE G. VAGINALIS (test code = 53936) NEGATIVE T. VAGINALIS (test code = 14130) NEGATIVE Delfino Schumacher AustinCT/NG, TMA, [id number] 00:00:00* Test Item Value Reference Range Interpretation Comme nts CHLAMYDIA, NAAT, URINE (test code = 22001) NEGATIVE GONORRHEA, NAAT, URINE (test code = 96253) NEGATIVE Delfino Schumacher AustinVAGINAL PATHOGENS DNA [id number] 00:00:00* Test Item Value Reference Range Interpretation Comme nts DIANNA SPECIES (test code = ) NEGATIVE G. VAGINALIS (test code = 66878) NEGATIVE T. VAGINALIS (test code = 48235) NEGATIVE Delfino Schumacher AustinCT/NG, TMA, [id number] 00:00:00* Test Item Value Reference Range Interpretation Comme nts CHLAMYDIA, NAAT, URINE (test code = 22953) NEGATIVE GONORRHEA, NAAT, URINE (test code = 61539) NEGATIVE Delfino Schumacher AustinVAGINAL PATHOGENS DNA [id number] 00:00:00* Test Item Value Reference Range Interpretation Comme nts DIANNA SPECIES (test code = ) NEGATIVE G. VAGINALIS (test code = 42885) NEGATIVE T. VAGINALIS (test code = 32873) NEGATIVE Delfino Schumacher AustinCT/NG, TMA, [id number] 00:00:00* Test Item Value Reference Range Interpretation Comme nts CHLAMYDIA, NAAT, URINE (test code = 55596) NEGATIVE GONORRHEA, NAAT, URINE (test code = 28860) NEGATIVE Delfino Schumacher AustinVAGINAL PATHOGENS DNA [id number] 00:00:00* Test Item Value Reference Range Interpretation Comme nts DIANNA SPECIES (test code = ) NEGATIVE G. VAGINALIS (test code = 23046) NEGATIVE T. VAGINALIS (test code = 12738) NEGATIVE Delfino Schumacher AustinCT/NG, TMA, [id number] 00:00:00* Test Item Value Reference Range Interpretation Comme nts CHLAMYDIA, NAAT, URINE (test code = 24501) NEGATIVE GONORRHEA, NAAT, URINE (test code = 56224) NEGATIVE Delfino Schumacher AustinVAGINAL PATHOGENS DNA [id number] 00:00:00* Test Item Value Reference Range Interpretation Comme nts DIANNA SPECIES (test code = ) NEGATIVE G. VAGINALIS (test code = 29296) NEGATIVE T. VAGINALIS (test code = 98021) NEGATIVE Delfino Schumacher AustinCT/NG, TMA, [id number] 00:00:00* Test Item Value Reference Range Interpretation Comme nts CHLAMYDIA, NAAT, URINE (test code = 18730) NEGATIVE GONORRHEA, NAAT, URINE (test code = 89415) NEGATIVE Delfino Endy AustinVAGINAL PATHOGENS DNA [id number] 00:00:00* Test Item Value Reference Range Interpretation Comme nts DIANNA SPECIES (test code = ) NEGATIVE G. VAGINALIS (test code = 04215) NEGATIVE T. VAGINALIS (test code = ) NEGATIVE Delfino Schumacher AustinCT/NG, TMA, [id number] 00:00:00* Test Item Value Reference Range Interpretation Comme nts CHLAMYDIA, NAAT, URINE (test code = 71501) NEGATIVE GONORRHEA, NAAT, URINE (test code = 51513) NEGATIVE Delfino Schumacher AustinVAGINAL PATHOGENS DNA [id number] 00:00:00* Test Item Value Reference Range Interpretation Comme nts DIANNA SPECIES (test code = ) NEGATIVE G. VAGINALIS (test code = 76560) NEGATIVE T. VAGINALIS (test code = 97199) NEGATIVE Delfino Schumacher AustinCT/NG, TMA, [id number] 00:00:00* Test Item Value Reference Range Interpretation Comme nts CHLAMYDIA, NAAT, URINE (test code = 28841) NEGATIVE GONORRHEA, NAAT, URINE (test code = 17120) NEGATIVE Delfino Schumacher AustinVAGINAL PATHOGENS DNA [id number] 00:00:00* Test Item Value Reference Range Interpretation Comme nts DIANNA SPECIES (test code = ) NEGATIVE G. VAGINALIS (test code = 87013) NEGATIVE T. VAGINALIS (test code = ) NEGATIVE Delfino Schumacher AustinCT/NG, TMA, [id number] 00:00:00* Test Item Value Reference Range Interpretation Comme nts CHLAMYDIA, NAAT, URINE (test code = 66807) NEGATIVE GONORRHEA, NAAT, URINE (test code = 36476) NEGATIVE Delfino Schumacher AustinVAGINAL PATHOGENS DNA [id number] 00:00:00* Test Item Value Reference Range Interpretation Comme nts DIANNA SPECIES (test code = ) NEGATIVE G. VAGINALIS (test code = 63676) NEGATIVE T. VAGINALIS (test code = 94908) NEGATIVE Delfino Schumacher AustinCT/NG, TMA, [id number] 00:00:00* Test Item Value Reference Range Interpretation Comme nts CHLAMYDIA, NAAT, URINE (test code = 85326) NEGATIVE GONORRHEA, NAAT, URINE (test code = 91502) NEGATIVE Delfino Schumacher AustinVAGINAL PATHOGENS DNA [id number] 00:00:00* Test Item Value Reference Range Interpretation Comme nts DIANNA SPECIES (test code = 95230) NEGATIVE G. VAGINALIS (test code = 45080) NEGATIVE T. VAGINALIS (test code = 89784) NEGATIVE Delfino OrtaCT/NG, TMA, [id number] 00:00:00* Test Item Value Reference Range Interpretation Comme nts CHLAMYDIA, NAAT, URINE (test code = 73551) NEGATIVE GONORRHEA, NAAT, URINE (test code = 91642) NEGATIVE Delfino Schumacher [id number] 20:25:19* Test Item Value Reference Range Interpretation Comme nts CALCIUM (test code = 2209) 10.6 MG/DL 8.5-10.5 H [id number] 20:25:10* Test Item Value Reference Range Interpretation Comme nts PHOSPHORUS (test code = 2227) 2.9 MG/DL 2.5-4.5 UNLESS OTHERWISE INDICATED, ALL TESTING PERFORMED AT [facility] [address] [place] [address] [place] FORMER: ABBI SHORT M.D. CLIA NUMBER [id number] [facility] [place] [id number] CALCIUM, [id number] 09:33:19* Test Item Value Reference Range Interpretation Comme nts CALCIUM, IONIZED (test code = 09725) 5.50 MG/DL 4.70-5.90 INTACT [id number] 09:28:17* Test Item Value Reference Range Interpretation Comme nts INTACT PTH (test code = 5005) 60 PG/ML 15-65 [id number] 00:00:00* Test Item Value Reference Range Interpretation Comme nts CALCIUM (test code = 2209) 10.6 MG/DL Delfino [id number] 00:00:00* Test Item Value Reference Range Interpretation Comme nts PHOSPHORUS (test code = 2227) 2.9 MG/DL Delfino OrtaINTACT [id number] 00:00:00* Test Item Value Reference Range Interpretation Comme nts INTACT PTH (test code = 5005) 60 PG/ML Delfino OrtaCALCIUM, [id number] 00:00:00* Test Item Value Reference Range Interpretation Comme nts CALCIUM, IONIZED (test code = 76740) 5.50 MG/DL Delfino Schumacher [id number] 00:00:00* Test Item Value Reference Range Interpretation Comme nts CALCIUM (test code = 2209) 10.6 MG/DL Delfino Schumacher [id number] 00:00:00* Test Item Value Reference Range Interpretation Comme nts PHOSPHORUS (test code = 2227) 2.9 MG/DL Delfino Schumacher AustinINTACT [id number] 00:00:00* Test Item Value Reference Range Interpretation Comme nts INTACT PTH (test code = 5005) 60 PG/ML Delfino Schumacher AustinCALCIUM, [id number] 00:00:00* Test Item Value Reference Range Interpretation Comme nts CALCIUM, IONIZED (test code = 28074) 5.50 MG/DL Delfino Schumacher AustinCALCIUM, [id number] 00:00:00* Test Item Value Reference Range Interpretation Comme nts CALCIUM, IONIZED (test code = 93024) 5.50 MG/DL Delfino Schumacher [id number] 00:00:00* Test Item Value Reference Range Interpretation Comme nts CALCIUM (test code = 2209) 10.6 MG/DL Delfino Schumacher [id number] 00:00:00* Test Item Value Reference Range Interpretation Comme nts PHOSPHORUS (test code = 2227) 2.9 MG/DL Delfino Schumacher AustinINTACT [id number] 00:00:00* Test Item Value Reference Range Interpretation Comme nts INTACT PTH (test code = 5005) 60 PG/ML Delfino Schumacher AustinCALCIUM, [id number] 00:00:00* Test Item Value Reference Range Interpretation Comme nts CALCIUM, IONIZED (test code = 36172) 5.50 MG/DL Delfino Schumacher [id number] 00:00:00* Test Item Value Reference Range Interpretation Comme nts CALCIUM (test code = 2209) 10.6 MG/DL Delfino Schumacher [id number] 00:00:00* Test Item Value Reference Range Interpretation Comme nts PHOSPHORUS (test code = 2227) 2.9 MG/DL Delfino Schumacher AustinINTACT [id number] 00:00:00* Test Item Value Reference Range Interpretation Comme nts INTACT PTH (test code = 5005) 60 PG/ML Delfino Schumacher AustinCALCIUM, [id number] 00:00:00* Test Item Value Reference Range Interpretation Comme nts CALCIUM, IONIZED (test code = 64156) 5.50 MG/DL Delfino Schumacher [id number] 00:00:00* Test Item Value Reference Range Interpretation Comme nts CALCIUM (test code = 2209) 10.6 MG/DL Delfino Schumacher [id number] 00:00:00* Test Item Value Reference Range Interpretation Comme nts CALCIUM (test code = 2209) 10.6 MG/DL Delfino Schumacher [id number] 00:00:00* Test Item Value Reference Range Interpretation Comme nts PHOSPHORUS (test code = 2227) 2.9 MG/DL Delfino Schumacher AustinINTACT [id number] 00:00:00* Test Item Value Reference Range Interpretation Comme nts INTACT PTH (test code = 5005) 60 PG/ML Delfino Schumacher AustinCALCIUM, [id number] 00:00:00* Test Item Value Reference Range Interpretation Comme nts CALCIUM, IONIZED (test code = 24887) 5.50 MG/DL Delfino Schumacher [id number] 00:00:00* Test Item Value Reference Range Interpretation Comme nts CALCIUM (test code = 2209) 10.6 MG/DL Delfino Schumacher [id number] 00:00:00* Test Item Value Reference Range Interpretation Comme nts PHOSPHORUS (test code = 2227) 2.9 MG/DL Delfino Schumacher [id number] 00:00:00* Test Item Value Reference Range Interpretation Comme nts PHOSPHORUS (test code = 2227) 2.9 MG/DL Delfino Schumacher AustinINTACT [id number] 00:00:00* Test Item Value Reference Range Interpretation Comme nts INTACT PTH (test code = 5005) 60 PG/ML Delfino Schumacher AustinCALCIUM, [id number] 00:00:00* Test Item Value Reference Range Interpretation Comme nts CALCIUM, IONIZED (test code = 00941) 5.50 MG/DL Delfino Schumacher [id number] 00:00:00* Test Item Value Reference Range Interpretation Comme nts CALCIUM (test code = 2209) 10.6 MG/DL Delfino Schumacher [id number] 00:00:00* Test Item Value Reference Range Interpretation Comme nts PHOSPHORUS (test code = 2227) 2.9 MG/DL Delfino Schumacher AustinINTACT [id number] 00:00:00* Test Item Value Reference Range Interpretation Comme nts INTACT PTH (test code = 5005) 60 PG/ML Delfino Schumacher AustinCALCIUM, [id number] 00:00:00* Test Item Value Reference Range Interpretation Comme nts CALCIUM, IONIZED (test code = 88212) 5.50 MG/DL Delfino Schumacher [id number] 00:00:00* Test Item Value Reference Range Interpretation Comme nts CALCIUM (test code = 2209) 10.6 MG/DL Delfino Schumacher [id number] 00:00:00* Test Item Value Reference Range Interpretation Comme nts PHOSPHORUS (test code = 2227) 2.9 MG/DL Delfino Schumacher [place] [id number] 00:00:00* Test Item Value Reference Range Interpretation Comme nts INTACT PTH (test code = 5005) 60 PG/ML Delfino Schumacher [place], [id number] 00:00:00* Test Item Value Reference Range Interpretation Comme nts CALCIUM, IONIZED (test code = 96253) 5.50 MG/DL Delfino Schumacher [id number] 00:00:00* Test Item Value Reference Range Interpretation Comme nts CALCIUM (test code = 2209) 10.6 MG/DL Delfino Schumacher [id number] 00:00:00* Test Item Value Reference Range Interpretation Comme nts PHOSPHORUS (test code = 2227) 2.9 MG/DL Delfino Schumacher [place] [id number] 00:00:00* Test Item Value Reference Range Interpretation Comme nts INTACT PTH (test code = 5005) 60 PG/ML Delfino Schumacher [place], [id number] 00:00:00* Test Item Value Reference Range Interpretation Comme nts CALCIUM, IONIZED (test code = 75312) 5.50 MG/DL Delfino Schumacher [id number] 00:00:00* Test Item Value Reference Range Interpretation Comme nts CALCIUM (test code = 2209) 10.6 MG/DL Delfino Schumahcer [id number] 00:00:00* Test Item Value Reference Range Interpretation Comme nts PHOSPHORUS (test code = 2227) 2.9 MG/DL Delfino Schumacher [place] [id number] 00:00:00* Test Item Value Reference Range Interpretation Comme nts INTACT PTH (test code = 5005) 60 PG/ML Delfino Schumacher [place], [id number] 00:00:00* Test Item Value Reference Range Interpretation Comme nts CALCIUM, IONIZED (test code = 64755) 5.50 MG/DL Delfino Schumacher [id number] 00:00:00* Test Item Value Reference Range Interpretation Comme nts CALCIUM (test code = 2209) 10.6 MG/DL Delfino Schumacher [id number] 00:00:00* Test Item Value Reference Range Interpretation Comme nts PHOSPHORUS (test code = 2227) 2.9 MG/DL Delfino Schumacher [place] [id number] 00:00:00* Test Item Value Reference Range Interpretation Comme nts INTACT PTH (test code = 5005) 60 PG/ML Delfino Schumacher AustinCALCIUM, [id number] 00:00:00* Test Item Value Reference Range Interpretation Comme nts CALCIUM, IONIZED (test code = 30103) 5.50 MG/DL Delfino Schumacher [id number] 00:00:00* Test Item Value Reference Range Interpretation Comme nts CALCIUM (test code = 2209) 10.6 MG/DL Delfino Schumacher [id number] 00:00:00* Test Item Value Reference Range Interpretation Comme nts PHOSPHORUS (test code = 2227) 2.9 MG/DL Delfino Schumacher [place] [id number] 00:00:00* Test Item Value Reference Range Interpretation Comme nts INTACT PTH (test code = 5005) 60 PG/ML Delfino Schumacher AustinCALCIUM, [id number] 00:00:00* Test Item Value Reference Range Interpretation Comme nts CALCIUM, IONIZED (test code = 38401) 5.50 MG/DL Delfino Schumacher [id number] 00:00:00* Test Item Value Reference Range Interpretation Comme nts CALCIUM (test code = 2209) 10.6 MG/DL Delfino Schumacher [id number] 00:00:00* Test Item Value Reference Range Interpretation Comme nts PHOSPHORUS (test code = 2227) 2.9 MG/DL Delfino Schumacher [place] [id number] 00:00:00* Test Item Value Reference Range Interpretation Comme nts INTACT PTH (test code = 5005) 60 PG/ML Delfino Schumacher AustinCALCIUM, [id number] 00:00:00* Test Item Value Reference Range Interpretation Comme nts CALCIUM, IONIZED (test code = 14310) 5.50 MG/DL Delfino Schumacher [id number] 00:00:00* Test Item Value Reference Range Interpretation Comme nts CALCIUM (test code = 2209) 10.6 MG/DL Delfino Schumacher [id number] 00:00:00* Test Item Value Reference Range Interpretation Comme nts PHOSPHORUS (test code = 2227) 2.9 MG/DL Delfino Schumacher [place] [id number] 00:00:00* Test Item Value Reference Range Interpretation Comme nts INTACT PTH (test code = 5005) 60 PG/ML Delfino Schumacher AustinCALCIUM, [id number] 00:00:00* Test Item Value Reference Range Interpretation Comme nts CALCIUM, IONIZED (test code = 59694) 5.50 MG/DL Delfino Schumacher [id number] 00:00:00* Test Item Value Reference Range Interpretation Comme nts CALCIUM (test code = 2209) 10.6 MG/DL Delfino Schumacher [id number] 00:00:00* Test Item Value Reference Range Interpretation Comme nts PHOSPHORUS (test code = 2227) 2.9 MG/DL Delfino Schumacher [place] [id number] 00:00:00* Test Item Value Reference Range Interpretation Comme nts INTACT PTH (test code = 5005) 60 PG/ML Delfino Schumacher AustinCALCIUM, [id number] 00:00:00* Test Item Value Reference Range Interpretation Comme nts CALCIUM, IONIZED (test code = 62502) 5.50 MG/DL Delfino Schumacher [id number] 00:00:00* Test Item Value Reference Range Interpretation Comme nts CALCIUM (test code = 2209) 10.6 MG/DL Delfino Schumacher [id number] 00:00:00* Test Item Value Reference Range Interpretation Comme nts PHOSPHORUS (test code = 2227) 2.9 MG/DL Delfino Schumacher [place] [id number] 00:00:00* Test Item Value Reference Range Interpretation Comme nts INTACT PTH (test code = 5005) 60 PG/ML Delfino Schumacher AustinCALCIUM, [id number] 00:00:00* Test Item Value Reference Range Interpretation Comme nts CALCIUM, IONIZED (test code = 05459) 5.50 MG/DL Delfino Schumacher ZgvymkRCXUNEJ4897-62-94 00:00:00* Test Item Value Reference Range Interpretation Comme nts CALCIUM (test code = 2209) 10.6 MG/DL Delfino Schumacher [id number] 00:00:00* Test Item Value Reference Range Interpretation Comme nts PHOSPHORUS (test code = 2227) 2.9 MG/DL Delfino Schumacher [place] [id number] 00:00:00* Test Item Value Reference Range Interpretation Comme nts INTACT PTH (test code = 5005) 60 PG/ML Delfino Schumacher AustinCALCIUM, [id number] 00:00:00* Test Item Value Reference Range Interpretation Comme nts CALCIUM, IONIZED (test code = 59765) 5.50 MG/DL Delfino Schumacher [id number] 00:00:00* Test Item Value Reference Range Interpretation Comme nts CALCIUM (test code = 2209) 10.6 MG/DL Delfino Schumacher YwnnchPARCIISUOI2429-28-04 00:00:00* Test Item Value Reference Range Interpretation Comme nts PHOSPHORUS (test code = 2227) 2.9 MG/DL Delfino Schumacher [place] [id number] 00:00:00* Test Item Value Reference Range Interpretation Comme nts INTACT PTH (test code = 5005) 60 PG/ML Delfino Schumacher AustinCALCIUM, [id number] 00:00:00* Test Item Value Reference Range Interpretation Comme nts CALCIUM, IONIZED (test code = 49935) 5.50 MG/DL Delfino Schumacher [id number] 00:00:00* Test Item Value Reference Range Interpretation Comme nts CALCIUM (test code = 2209) 10.6 MG/DL Delfino Schumacher [id number] 00:00:00* Test Item Value Reference Range Interpretation Comme nts PHOSPHORUS (test code = 2227) 2.9 MG/DL Delfino Schumacher [place] [id number] 00:00:00* Test Item Value Reference Range Interpretation Comme nts INTACT PTH (test code = 5005) 60 PG/ML Delfino Schumacher AustinCALCIUM, [id number] 00:00:00* Test Item Value Reference Range Interpretation Comme nts CALCIUM, IONIZED (test code = 81311) 5.50 MG/DL Delfino Schumacher [id number] 00:00:00* Test Item Value Reference Range Interpretation Comme nts CALCIUM (test code = 2209) 10.6 MG/DL Delfino Schumacher [id number] 00:00:00* Test Item Value Reference Range Interpretation Comme nts PHOSPHORUS (test code = 2227) 2.9 MG/DL Delfino Schumacher [place] [id number] 00:00:00* Test Item Value Reference Range Interpretation Comme nts INTACT PTH (test code = 5005) 60 PG/ML Delfino OrtaCALCIUM, [id number] 00:00:00* Test Item Value Reference Range Interpretation Comme nts CALCIUM, IONIZED (test code = 05333) 5.50 MG/DL Delfino Schumacher [id number] 00:00:00* Test Item Value Reference Range Interpretation Comme nts CALCIUM (test code = 2209) 10.6 MG/DL Delfino Schumacher MducflWIHHGCKDFW7507-41-60 00:00:00* Test Item Value Reference Range Interpretation Comme nts PHOSPHORUS (test code = 2227) 2.9 MG/DL Delfino Schumacher [place] [id number] 00:00:00* Test Item Value Reference Range Interpretation Comme nts INTACT PTH (test code = 5005) 60 PG/ML Delfino Schumacher AustinCALCIUM, [id number] 00:00:00* Test Item Value Reference Range Interpretation Comme nts CALCIUM, IONIZED (test code = 73895) 5.50 MG/DL Delfino Schumacher [id number] 00:00:00* Test Item Value Reference Range Interpretation Comme nts CALCIUM (test code = 2209) 10.6 MG/DL Delfino Schumacher [id number] 00:00:00* Test Item Value Reference Range Interpretation Comme nts PHOSPHORUS (test code = 2227) 2.9 MG/DL Delfino Schumacher [place] [id number] 00:00:00* Test Item Value Reference Range Interpretation Comme nts INTACT PTH (test code = 5005) 60 PG/ML Delfino OrtaCALCIUM, [id number] 00:00:00* Test Item Value Reference Range Interpretation Comme nts CALCIUM, IONIZED (test code = 28378) 5.50 MG/DL Delfino Schumacher WiyfsgMJJKVRR0691-10-58 00:00:00* Test Item Value Reference Range Interpretation Comme nts CALCIUM (test code = 2209) 10.6 MG/DL Delfino Schumacher [id number] 00:00:00* Test Item Value Reference Range Interpretation Comme nts PHOSPHORUS (test code = 2227) 2.9 MG/DL Delfino Schumacher [place] [id number] 00:00:00* Test Item Value Reference Range Interpretation Comme nts INTACT PTH (test code = 5005) 60 PG/ML Delfino OrtaINTACT [id number] 00:00:00* Test Item Value Reference Range Interpretation Comme nts INTACT PTH (test code = 5005) 60 PG/ML Delfino OrtaCALCIUM, [id number] 00:00:00* Test Item Value Reference Range Interpretation Comme nts CALCIUM, IONIZED (test code = 29396) 5.50 MG/DL Delfino SarmientoLTNIALL, [id number] 09:25:56SPECIMEN NUMBER: [id number] CULTURE, URINE SPECIMEN NUMBER: [id number] SPECIMEN COMMENT: URINE SOURCE: URINE REPORT STATUS: FINAL FINAL REPORT: 03/09/2023 10-50,000 CFU/ML UROGENITAL KARLA PRESENT NO COMMON PATHOGENSCULTNIALL, [id number] 00:00:00* Test Item Value Reference Range Interpretation Comme nts CULTURE, URINE (test code = 42119) SPECIMEN NUMBER: [id number] Delfino SarmientoKELLY, [id number] 00:00:00* Test Item Value Reference Range Interpretation Comme nts CULTURE, URINE (test code = 75923) SPECIMEN NUMBER: [id number] Delfino Cedeño [id number] 00:00:00* Test Item Value Reference Range Interpretation Comme nts CULTURE, URINE (test code = 57843) SPECIMEN NUMBER: [id number] ANGEL [id number] 00:00:00* Test Item Value Reference Range Interpretation Comme nts CULTURE, URINE (test code = 48912) SPECIMEN NUMBER: [id number] Delfino Cedeño [id number] 00:00:00* Test Item Value Reference Range Interpretation Comme nts CULTURE, URINE (test code = 43400) SPECIMEN NUMBER: [id number] Delfino Cedeño [id number] 00:00:00* Test Item Value Reference Range Interpretation Comme nts CULTURE, URINE (test code = 85287) SPECIMEN NUMBER: [id number] Delfino Cedeño [id number] 00:00:00* Test Item Value Reference Range Interpretation Comme nts CULTURE, URINE (test code = 93818) SPECIMEN NUMBER: [id number] Delfino Cedeño [id number] 00:00:00* Test Item Value Reference Range Interpretation Comme nts CULTURE, URINE (test code = 86078) SPECIMEN NUMBER: [id number] Delfino Cedeño [id number] 00:00:00* Test Item Value Reference Range Interpretation Comme nts CULTURE, URINE (test code = 91001) SPECIMEN NUMBER: [id number] Delfino Cedeño [id number] 00:00:00* Test Item Value Reference Range Interpretation Comme nts CULTURE, URINE (test code = 16644) SPECIMEN NUMBER: [id number] Delfino Cedeño [id number] 00:00:00* Test Item Value Reference Range Interpretation Comme nts CULTURE, URINE (test code = 82580) SPECIMEN NUMBER: [id number] Delfino Cedeño [id number] 00:00:00* Test Item Value Reference Range Interpretation Comme nts CULTURE, URINE (test code = 34092) SPECIMEN NUMBER: [id number] Delfino Cedeño, [id number] 00:00:00* Test Item Value Reference Range Interpretation Comme nts CULTURE, URINE (test code = 10069) SPECIMEN NUMBER: [id number] Delfino Cedeño [id number] 00:00:00* Test Item Value Reference Range Interpretation Comme nts CULTURE, URINE (test code = 61100) SPECIMEN NUMBER: [id number] Delfino Cedeño [id number] 00:00:00* Test Item Value Reference Range Interpretation Comme nts CULTURE, URINE (test code = 16694) SPECIMEN NUMBER: [id number] Delfino Cdeeño [id number] 00:00:00* Test Item Value Reference Range Interpretation Comme nts CULTURE, URINE (test code = 94284) SPECIMEN NUMBER: [id number] Delfino Cedeño [id number] 00:00:00* Test Item Value Reference Range Interpretation Comme nts CULTURE, URINE (test code = 61622) SPECIMEN NUMBER: [id number] Delfino Cedeño, [id number] 00:00:00* Test Item Value Reference Range Interpretation Comme nts CULTURE, URINE (test code = 74448) SPECIMEN NUMBER: [id number] Delfino Cedeño, [id number] 00:00:00* Test Item Value Reference Range Interpretation Comme nts CULTURE, URINE (test code = 70686) SPECIMEN NUMBER: [id number] Delfino Cedeño, [id number] 00:00:00* Test Item Value Reference Range Interpretation Comme nts CULTURE, URINE (test code = 66100) SPECIMEN NUMBER: [id number] Delfino Cedeño, [id number] 00:00:00* Test Item Value Reference Range Interpretation Comme nts CULTURE, URINE (test code = 53466) SPECIMEN NUMBER: [id number] Delfino Cedñeo, [id number] 00:00:00* Test Item Value Reference Range Interpretation Comme nts CULTURE, URINE (test code = 25702) SPECIMEN NUMBER: [id number] Delfino Cedeño, [id number] 00:00:00* Test Item Value Reference Range Interpretation Comme nts CULTURE, URINE (test code = 45953) SPECIMEN NUMBER: [id number] Delfino Cedeño, [id number] 00:00:00* Test Item Value Reference Range Interpretation Comme nts CULTURE, URINE (test code = 33239) SPECIMEN NUMBER: [id number] Delfino OrtaCOMPREHENSIVE METABOLIC [id number] 04:45:25* Test Item Value Reference Range Interpretation Comme nts GLUCOSE (test code = 2216) 87 MG/DL 70-99 BUN (test code = 2207) 32 MG/DL 8-23 H CREATININE (test code = 221) 1.39 MG/DL 0.60-1.30 H eGFR (2020 CKD-EPI) (test co de = 80961) 43 ML/MIN/1.73 >60 L CALC BUN/CREAT (test [...] code = 2219) 32 U/L 5-40 LIPID [id number] 04:45:25* Test Item Value Reference Range Interpretation [...] SPECIMENS. FOR MOREINFORMATION, SEE CLIENT ANNOUNCEMENT AT [email or web address] RISK RATIO LDL/HDL (test code = 2238) 0.58 RATIO <3.22 UNLESS OTHERW ISE INDICATED, ALL TESTING PERFORMED AT [facility] [address] [place] [id number] [address] FORMER: ABBI SHORT M.D. CLIA NUMBER [id number] [facility] [place]. [id number] COMPREHENSIVE METABOLIC [id number] 00:00:00* Test Item Value Reference Range Interpretation Comme nts GLUCOSE (test code = 2217) 87 MG/DL BUN (test code = 2208) 32 MG/DL CREATININE (test code = 2214) 1.39 MG/DL eGFR (2020 CKD-EPI) (test co de = 36661) 43 ML/MIN/1.73 CALC BUN/CREAT (test code = [...] code = 2219) 32 U/L Delfino Schumacher FlagstaffLIPID [id number] 00:00:00* Test Item Value Reference Range Interpretation Comme nts CHOLESTEROL (test code = 2210) 187 MG/DL TRIGLYCERIDES (test code = 2232) 58 MG/DL HDL CHOLESTEROL (test code = 2220) 110 MG/DL CALC LDL CHOL (test code = 2237) 64 MG/DL RISK RATIO LDL/HDL (test cod e = 2238) 0.58 RATIO Delfino OrtaCOMPREHENSIVE METABOLIC [id number] 00:00:00* Test Item Value Reference Range Interpretation Comme nts GLUCOSE (test code = 2217) 87 MG/DL BUN (test code = 2208) 32 MG/DL CREATININE (test code = 2214) 1.39 MG/DL eGFR (2020 CKD-EPI) (test co de = 77485) 43 ML/MIN/1.73 CALC BUN/CREAT (test code = [...] = 2219) 32 U/L Delfino Schumacher AustinLIPID [id number] 00:00:00* Test Item Value Reference Range Interpretation Comme nts CHOLESTEROL (test code = 2210) 187 MG/DL TRIGLYCERIDES (test code = 2232) 58 MG/DL HDL CHOLESTEROL (test code = 2220) 110 MG/DL CALC LDL CHOL (test code = 2237) 64 MG/DL RISK RATIO LDL/HDL (test cod e = 2238) 0.58 RATIO Delfino OrtaCOMPREHENSIVE METABOLIC [id number] 00:00:00* Test Item Value Reference Range Interpretation Comme nts GLUCOSE (test code = 2217) 87 MG/DL BUN (test code = 2208) 32 MG/DL CREATININE (test code = 2214) 1.39 MG/DL eGFR (2020 CKD-EPI) (test co de = 36873) 43 ML/MIN/1.73 CALC BUN/CREAT (test code = [...] = 2219) 32 U/L Delfino OrtaCOMPREHENSIVE METABOLIC [id number] 00:00:00* Test Item Value Reference Range Interpretation Comme nts GLUCOSE (test code = 2217) 87 MG/DL BUN (test code = 2208) 32 MG/DL CREATININE (test code = 2214) 1.39 MG/DL eGFR (2020 CKD-EPI) (test co de = 85715) 43 ML/MIN/1.73 CALC BUN/CREAT (test code = [...] code = 2219) 32 U/L Delfino OrtaLIPID [id number] 00:00:00* Test Item Value Reference Range Interpretation Comme nts CHOLESTEROL (test code = 2210) 187 MG/DL TRIGLYCERIDES (test code = 2232) 58 MG/DL HDL CHOLESTEROL (test code = 2220) 110 MG/DL CALC LDL CHOL (test code = 2237) 64 MG/DL RISK RATIO LDL/HDL (test cod e = 2238) 0.58 RATIO Delfino OrtaCOMPREHENSIVE METABOLIC [id number] 00:00:00* Test Item Value Reference Range Interpretation Comme nts GLUCOSE (test code = 2217) 87 MG/DL BUN (test code = 2208) 32 MG/DL CREATININE (test code = 2214) 1.39 MG/DL eGFR (2020 CKD-EPI) (test co de = 86952) 43 ML/MIN/1.73 CALC BUN/CREAT (test code = [...] code = 2219) 32 U/L Delfino OrtaLIPID [id number] 00:00:00* Test Item Value Reference Range Interpretation Comme nts CHOLESTEROL (test code = 2210) 187 MG/DL TRIGLYCERIDES (test code = 2232) 58 MG/DL HDL CHOLESTEROL (test code = 2220) 110 MG/DL CALC LDL CHOL (test code = 2237) 64 MG/DL RISK RATIO LDL/HDL (test cod e = 2238) 0.58 RATIO Delfino OrtaCOMPREHENSIVE METABOLIC [id number] 00:00:00* Test Item Value Reference Range Interpretation Comme nts GLUCOSE (test code = 2217) 87 MG/DL BUN (test code = 2208) 32 MG/DL CREATININE (test code = 2214) 1.39 MG/DL eGFR (2020 CKD-EPI) (test co de = 61586) 43 ML/MIN/1.73 CALC BUN/CREAT (test code = [...] code = 2219) 32 U/L Delfino OrtaLIPID [id number] 00:00:00* Test Item Value Reference Range Interpretation Comme nts CHOLESTEROL (test code = 2210) 187 MG/DL TRIGLYCERIDES (test code = 2232) 58 MG/DL HDL CHOLESTEROL (test code = 2220) 110 MG/DL CALC LDL CHOL (test code = 2237) 64 MG/DL RISK RATIO LDL/HDL (test cod e = 2238) 0.58 RATIO Delfino Schumacher AustinLIPID [id number] 00:00:00* Test Item Value Reference Range Interpretation Comme nts CHOLESTEROL (test code = 2210) 187 MG/DL TRIGLYCERIDES (test code = 2232) 58 MG/DL HDL CHOLESTEROL (test code = 2220) 110 MG/DL CALC LDL CHOL (test code = 2237) 64 MG/DL RISK RATIO LDL/HDL (test cod e = 2238) 0.58 RATIO Delfino OrtaCOMPREHENSIVE METABOLIC [id number] 00:00:00* Test Item Value Reference Range Interpretation Comme nts GLUCOSE (test code = 2217) 87 MG/DL BUN (test code = 2208) 32 MG/DL CREATININE (test code = 2214) 1.39 MG/DL eGFR (2020 CKD-EPI) (test co de = 45548) 43 ML/MIN/1.73 CALC BUN/CREAT (test code = [...] = 2219) 32 U/L Delfino Schumacher AustinLIPID [id number] 00:00:00* Test Item Value Reference Range Interpretation Comme nts CHOLESTEROL (test code = 2210) 187 MG/DL TRIGLYCERIDES (test code = 2232) 58 MG/DL HDL CHOLESTEROL (test code = 2220) 110 MG/DL CALC LDL CHOL (test code = 2237) 64 MG/DL RISK RATIO LDL/HDL (test cod e = 2238) 0.58 RATIO Delfino Schumacher AustinCOMPREHENSIVE METABOLIC [id number] 00:00:00* Test Item Value Reference Range Interpretation Comme nts GLUCOSE (test code = 2217) 87 MG/DL BUN (test code = 2208) 32 MG/DL CREATININE (test code = 2214) 1.39 MG/DL eGFR (2020 CKD-EPI) (test co de = 48189) 43 ML/MIN/1.73 CALC BUN/CREAT (test code = [...] code = 2219) 32 U/L Delfino Schumacher FlagstaffLIPID [id number] 00:00:00* Test Item Value Reference Range Interpretation Comme nts CHOLESTEROL (test code = 2210) 187 MG/DL TRIGLYCERIDES (test code = 2232) 58 MG/DL HDL CHOLESTEROL (test code = 2220) 110 MG/DL CALC LDL CHOL (test code = 2237) 64 MG/DL RISK RATIO LDL/HDL (test cod e = 2238) 0.58 RATIO Delfino OrtaCOMPREHENSIVE METABOLIC [id number] 00:00:00* Test Item Value Reference Range Interpretation Comme nts GLUCOSE (test code = 2217) 87 MG/DL BUN (test code = 2208) 32 MG/DL CREATININE (test code = 2214) 1.39 MG/DL eGFR (2020 CKD-EPI) (test co de = 18630) 43 ML/MIN/1.73 CALC BUN/CREAT (test code = [...] code = 2219) 32 U/L Delfino OrtaLIPID [id number] 00:00:00* Test Item Value Reference Range Interpretation Comme nts CHOLESTEROL (test code = 2210) 187 MG/DL TRIGLYCERIDES (test code = 2232) 58 MG/DL HDL CHOLESTEROL (test code = 2220) 110 MG/DL CALC LDL CHOL (test code = 2237) 64 MG/DL RISK RATIO LDL/HDL (test cod e = 2238) 0.58 RATIO Delfino OrtaCOMPREHENSIVE METABOLIC [id number] 00:00:00* Test Item Value Reference Range Interpretation Comme nts GLUCOSE (test code = 2217) 87 MG/DL BUN (test code = 2208) 32 MG/DL CREATININE (test code = 2214) 1.39 MG/DL eGFR (2020 CKD-EPI) (test co de = 50795) 43 ML/MIN/1.73 CALC BUN/CREAT (test code = [...] code = 2219) 32 U/L Delfino OrtaLIPID [id number] 00:00:00* Test Item Value Reference Range Interpretation Comme nts CHOLESTEROL (test code = 2210) 187 MG/DL TRIGLYCERIDES (test code = 2232) 58 MG/DL HDL CHOLESTEROL (test code = 2220) 110 MG/DL CALC LDL CHOL (test code = 2237) 64 MG/DL RISK RATIO LDL/HDL (test cod e = 2238) 0.58 RATIO Delfino OrtaCOMPREHENSIVE METABOLIC [id number] 00:00:00* Test Item Value Reference Range Interpretation Comme nts GLUCOSE (test code = 2217) 87 MG/DL BUN (test code = 2208) 32 MG/DL CREATININE (test code = 2214) 1.39 MG/DL eGFR (2020 CKD-EPI) (test co de = 28344) 43 ML/MIN/1.73 CALC BUN/CREAT (test code = [...] = 2219) 32 U/L Delfino Schumacher AustinLIPID [id number] 00:00:00* Test Item Value Reference Range Interpretation Comme nts CHOLESTEROL (test code = 2210) 187 MG/DL TRIGLYCERIDES (test code = 2232) 58 MG/DL HDL CHOLESTEROL (test code = 2220) 110 MG/DL CALC LDL CHOL (test code = 2237) 64 MG/DL RISK RATIO LDL/HDL (test cod e = 2238) 0.58 RATIO Delfino Schumacher AustinCOMPREHENSIVE METABOLIC [id number] 00:00:00* Test Item Value Reference Range Interpretation Comme nts GLUCOSE (test code = 2217) 87 MG/DL BUN (test code = 2208) 32 MG/DL CREATININE (test code = 2214) 1.39 MG/DL eGFR (2020 CKD-EPI) (test co de = 17189) 43 ML/MIN/1.73 CALC BUN/CREAT (test code = [...] code = 2219) 32 U/L Delfino Schumacher FlagstaffLIPID [id number] 00:00:00* Test Item Value Reference Range Interpretation Comme nts CHOLESTEROL (test code = 2210) 187 MG/DL TRIGLYCERIDES (test code = 2232) 58 MG/DL HDL CHOLESTEROL (test code = 2220) 110 MG/DL CALC LDL CHOL (test code = 2237) 64 MG/DL RISK RATIO LDL/HDL (test cod e = 2238) 0.58 RATIO Delfino Schumacher YouCOMPREHENSIVE METABOLIC [id number] 00:00:00* Test Item Value Reference Range Interpretation Comme nts GLUCOSE (test code = 2217) 87 MG/DL BUN (test code = 2208) 32 MG/DL CREATININE (test code = 2214) 1.39 MG/DL eGFR (2020 CKD-EPI) (test co de = 26430) 43 ML/MIN/1.73 CALC BUN/CREAT (test code = [...] = 2219) 32 U/L Delfino Schumacher AustinLIPID [id number] 00:00:00* Test Item Value Reference Range Interpretation Comme nts CHOLESTEROL (test code = 2210) 187 MG/DL TRIGLYCERIDES (test code = 2232) 58 MG/DL HDL CHOLESTEROL (test code = 2220) 110 MG/DL CALC LDL CHOL (test code = 2237) 64 MG/DL RISK RATIO LDL/HDL (test cod e = 2238) 0.58 RATIO Delfino OrtaCOMPREHENSIVE METABOLIC [id number] 00:00:00* Test Item Value Reference Range Interpretation Comme nts GLUCOSE (test code = 2217) 87 MG/DL BUN (test code = 2208) 32 MG/DL CREATININE (test code = 2214) 1.39 MG/DL eGFR (2020 CKD-EPI) (test co de = 30963) 43 ML/MIN/1.73 CALC BUN/CREAT (test code = [...] = 2219) 32 U/L Delfino Schumacher [place] [id number] 00:00:00* Test Item Value Reference Range Interpretation Comme nts CHOLESTEROL (test code = 2210) 187 MG/DL TRIGLYCERIDES (test code = 2232) 58 MG/DL HDL CHOLESTEROL (test code = 2220) 110 MG/DL CALC LDL CHOL (test code = 2237) 64 MG/DL RISK RATIO LDL/HDL (test cod e = 2238) 0.58 RATIO Delfino OrtaCOMPREHENSIVE METABOLIC [id number] 00:00:00* Test Item Value Reference Range Interpretation Comme nts GLUCOSE (test code = 2217) 87 MG/DL BUN (test code = 2208) 32 MG/DL CREATININE (test code = 2214) 1.39 MG/DL eGFR (2020 CKD-EPI) (test co de = 58877) 43 ML/MIN/1.73 CALC BUN/CREAT (test code = [...] = 2219) 32 U/L Delfino Schumacher [place] [id number] 00:00:00* Test Item Value Reference Range Interpretation Comme nts CHOLESTEROL (test code = 2210) 187 MG/DL TRIGLYCERIDES (test code = 2232) 58 MG/DL HDL CHOLESTEROL (test code = 2220) 110 MG/DL CALC LDL CHOL (test code = 2237) 64 MG/DL RISK RATIO LDL/HDL (test cod e = 2238) 0.58 RATIO Delfino OrtaCOMPREHENSIVE METABOLIC [id number] 00:00:00* Test Item Value Reference Range Interpretation Comme nts GLUCOSE (test code = 2217) 87 MG/DL BUN (test code = 2208) 32 MG/DL CREATININE (test code = 2214) 1.39 MG/DL eGFR (2020 CKD-EPI) (test co de = 33039) 43 ML/MIN/1.73 CALC BUN/CREAT (test code = [...] code = 2219) 32 U/L Delfino Schumacher [place] [id number] 00:00:00* Test Item Value Reference Range Interpretation Comme nts CHOLESTEROL (test code = 2210) 187 MG/DL TRIGLYCERIDES (test code = 2232) 58 MG/DL HDL CHOLESTEROL (test code = 2220) 110 MG/DL CALC LDL CHOL (test code = 2237) 64 MG/DL RISK RATIO LDL/HDL (test cod e = 2238) 0.58 RATIO Delfino OrtaCOMPREHENSIVE METABOLIC [id number] 00:00:00* Test Item Value Reference Range Interpretation Comme nts GLUCOSE (test code = 2217) 87 MG/DL BUN (test code = 2208) 32 MG/DL CREATININE (test code = 2214) 1.39 MG/DL eGFR (2020 CKD-EPI) (test co de = 81233) 43 ML/MIN/1.73 CALC BUN/CREAT (test code = [...] = 2219) 32 U/L Delfino [facility] AustinLIPID [id number] 00:00:00* Test Item Value Reference Range Interpretation Comme nts CHOLESTEROL (test code = 2210) 187 MG/DL TRIGLYCERIDES (test code = 2232) 58 MG/DL HDL CHOLESTEROL (test code = 2220) 110 MG/DL CALC LDL CHOL (test code = 2237) 64 MG/DL RISK RATIO LDL/HDL (test cod e = 2238) 0.58 RATIO Delfino Endy YouCOMPREHENSIVE METABOLIC [id number] 00:00:00* Test Item Value Reference Range Interpretation Comme nts GLUCOSE (test code = 2217) 87 MG/DL BUN (test code = 2208) 32 MG/DL CREATININE (test code = 2214) 1.39 MG/DL eGFR (2020 CKD-EPI) (test co de = 32026) 43 ML/MIN/1.73 CALC BUN/CREAT (test code = [...] = 2219) 32 U/L Delfino F AustinLIPID [id number] 00:00:00* Test Item Value Reference Range Interpretation Comme nts CHOLESTEROL (test code = 2210) 187 MG/DL TRIGLYCERIDES (test code = 2232) 58 MG/DL HDL CHOLESTEROL (test code = 2220) 110 MG/DL CALC LDL CHOL (test code = 2237) 64 MG/DL RISK RATIO LDL/HDL (test cod e = 2238) 0.58 RATIO Delfino OrtaCOMPREHENSIVE METABOLIC [id number] 00:00:00* Test Item Value Reference Range Interpretation Comme nts GLUCOSE (test code = 2217) 87 MG/DL BUN (test code = 2208) 32 MG/DL CREATININE (test code = 2214) 1.39 MG/DL eGFR (2020 CKD-EPI) (test co de = 61953) 43 ML/MIN/1.73 CALC BUN/CREAT (test code = [...] code = 2219) 32 U/L Delfino OrtaLIPID [id number] 00:00:00* Test Item Value Reference Range Interpretation Comme nts CHOLESTEROL (test code = 2210) 187 MG/DL TRIGLYCERIDES (test code = 2232) 58 MG/DL HDL CHOLESTEROL (test code = 2220) 110 MG/DL CALC LDL CHOL (test code = 2237) 64 MG/DL RISK RATIO LDL/HDL (test cod e = 2238) 0.58 RATIO Delfino OrtaCOMPREHENSIVE METABOLIC [id number] 00:00:00* Test Item Value Reference Range Interpretation Comme nts GLUCOSE (test code = 2217) 87 MG/DL BUN (test code = 2208) 32 MG/DL CREATININE (test code = 2214) 1.39 MG/DL eGFR (2020 CKD-EPI) (test co de = 53251) 43 ML/MIN/1.73 CALC BUN/CREAT (test code = [...] code = 2219) 32 U/L Delfino OrtaLIPID [id number] 00:00:00* Test Item Value Reference Range Interpretation Comme nts CHOLESTEROL (test code = 2210) 187 MG/DL TRIGLYCERIDES (test code = 2232) 58 MG/DL HDL CHOLESTEROL (test code = 2220) 110 MG/DL CALC LDL CHOL (test code = 2237) 64 MG/DL RISK RATIO LDL/HDL (test cod e = 2238) 0.58 RATIO Delfino Endy YouCOMPREHENSIVE METABOLIC [id number] 00:00:00* Test Item Value Reference Range Interpretation Comme nts GLUCOSE (test code = 2217) 87 MG/DL BUN (test code = 2208) 32 MG/DL CREATININE (test code = 2214) 1.39 MG/DL eGFR (2020 CKD-EPI) (test co de = 96022) 43 ML/MIN/1.73 CALC BUN/CREAT (test code = [...] code = 2219) 32 U/L Delfino OrtaLIPID [id number] 00:00:00* Test Item Value Reference Range Interpretation Comme nts CHOLESTEROL (test code = 2210) 187 MG/DL TRIGLYCERIDES (test code = 2232) 58 MG/DL HDL CHOLESTEROL (test code = 2220) 110 MG/DL CALC LDL CHOL (test code = 2237) 64 MG/DL RISK RATIO LDL/HDL (test cod e = 2238) 0.58 RATIO Delfino OrtaCOMPREHENSIVE METABOLIC [id number] 00:00:00* Test Item Value Reference Range Interpretation Comme nts GLUCOSE (test code = 2217) 87 MG/DL BUN (test code = 2208) 32 MG/DL CREATININE (test code = 2214) 1.39 MG/DL eGFR (2020 CKD-EPI) (test co de = 14094) 43 ML/MIN/1.73 CALC BUN/CREAT (test code = [...] code = 2219) 32 U/L Delfino OrtaLIPID [id number] 00:00:00* Test Item Value Reference Range Interpretation Comme nts CHOLESTEROL (test code = 2210) 187 MG/DL TRIGLYCERIDES (test code = 2232) 58 MG/DL HDL CHOLESTEROL (test code = 2220) 110 MG/DL CALC LDL CHOL (test code = 2237) 64 MG/DL RISK RATIO LDL/HDL (test cod e = 2238) 0.58 RATIO Delfino OrtaCOMPREHENSIVE METABOLIC [id number] 00:00:00* Test Item Value Reference Range Interpretation Comme nts GLUCOSE (test code = 2217) 87 MG/DL BUN (test code = 2208) 32 MG/DL CREATININE (test code = 2214) 1.39 MG/DL eGFR (2020 CKD-EPI) (test co de = 17872) 43 ML/MIN/1.73 CALC BUN/CREAT (test code = [...] code = 2219) 32 U/L Delfino OrtaLIPID [id number] 00:00:00* Test Item Value Reference Range Interpretation Comme nts CHOLESTEROL (test code = 2210) 187 MG/DL TRIGLYCERIDES (test code = 2232) 58 MG/DL HDL CHOLESTEROL (test code = 2220) 110 MG/DL CALC LDL CHOL (test code = 2237) 64 MG/DL RISK RATIO LDL/HDL (test cod e = 2238) 0.58 RATIO Delfino OrtaCOMPREHENSIVE METABOLIC [id number] 00:00:00* Test Item Value Reference Range Interpretation Comme nts GLUCOSE (test code = 2217) 87 MG/DL BUN (test code = 2208) 32 MG/DL CREATININE (test code = 2214) 1.39 MG/DL eGFR (2020 CKD-EPI) (test co de = 29352) 43 ML/MIN/1.73 CALC BUN/CREAT (test code = [...] code = 2219) 32 U/L Delfino OrtaLIPID [id number] 00:00:00* Test Item Value Reference Range Interpretation Comme nts CHOLESTEROL (test code = 2210) 187 MG/DL TRIGLYCERIDES (test code = 2232) 58 MG/DL HDL CHOLESTEROL (test code = 2220) 110 MG/DL CALC LDL CHOL (test code = 2237) 64 MG/DL RISK RATIO LDL/HDL (test cod e = 2238) 0.58 RATIO Delfino [facility] AustinLIPID [id number] 00:00:00* Test Item Value Reference Range Interpretation Comme nts CHOLESTEROL (test code = 2210) 183 MG/DL TRIGLYCERIDES (test code = 2232) 69 MG/DL HDL CHOLESTEROL (test code = 2220) 93 MG/DL CALC LDL CHOL (test code = 2237) 75 MG/DL RISK RATIO LDL/HDL (test cod e = 2238) 0.81 RATIO Delfino Schumacher AustinCOMPREHENSIVE METABOLIC [id number] 00:00:00* Test Item Value Reference Range Interpretation Comme nts GLUCOSE (test code = 2217) 74 MG/DL BUN (test code = 2208) 16 MG/DL CREATININE (test code = 2214) 0.96 MG/DL eGFR (2020 CKD-EPI) (test co de = 53033) 69 ML/MIN/1.73 CALC BUN/CREAT (test code = [...] = 2219) 13 U/L Delfino OrtaCOMPREHENSIVE METABOLIC [id number] 00:00:00* Test Item Value Reference Range Interpretation Comme nts GLUCOSE (test code = 2217) 74 MG/DL BUN (test code = 2208) 16 MG/DL CREATININE (test code = 2214) 0.96 MG/DL eGFR (2020 CKD-EPI) (test co de = 59643) 69 ML/MIN/1.73 CALC BUN/CREAT (test code = [...] = 2219) 13 U/L Delfino [facility] AustinLIPID [id number] 00:00:00* Test Item Value Reference Range Interpretation Comme nts CHOLESTEROL (test code = 2210) 183 MG/DL TRIGLYCERIDES (test code = 2232) 69 MG/DL HDL CHOLESTEROL (test code = 2220) 93 MG/DL CALC LDL CHOL (test code = 2237) 75 MG/DL RISK RATIO LDL/HDL (test cod e = 2238) 0.81 RATIO Delfino OrtaCOMPREHENSIVE METABOLIC [id number] 00:00:00* Test Item Value Reference Range Interpretation Comme nts GLUCOSE (test code = 2217) 74 MG/DL BUN (test code = 2208) 16 MG/DL CREATININE (test code = 2214) 0.96 MG/DL eGFR (2020 CKD-EPI) (test co de = 63964) 69 ML/MIN/1.73 CALC BUN/CREAT (test code = [...] = 2219) 13 U/L Delfino [facility] AustinLIPID [id number] 00:00:00* Test Item Value Reference Range Interpretation Comme nts CHOLESTEROL (test code = 2210) 183 MG/DL TRIGLYCERIDES (test code = 2232) 69 MG/DL HDL CHOLESTEROL (test code = 2220) 93 MG/DL CALC LDL CHOL (test code = 2237) 75 MG/DL RISK RATIO LDL/HDL (test cod e = 2238) 0.81 RATIO Delfino Schumacher AustinCOMPREHENSIVE METABOLIC [id number] 00:00:00* Test Item Value Reference Range Interpretation Comme nts GLUCOSE (test code = 2217) 74 MG/DL BUN (test code = 2208) 16 MG/DL CREATININE (test code = 2214) 0.96 MG/DL eGFR (2020 CKD-EPI) (test co de = 67175) 69 ML/MIN/1.73 CALC BUN/CREAT (test code = [...] (test code = 2219) 13 U/L LIPID [id number] 00:00:00* Test Item Value Reference Range Interpretation Comme nts CHOLESTEROL (test code = 2210) 183 MG/DL TRIGLYCERIDES (test code = 2232) 69 MG/DL HDL CHOLESTEROL (test code = 2220) 93 MG/DL CALC LDL CHOL (test code = 2237) 75 MG/DL RISK RATIO LDL/HDL (test cod e = 2238) 0.81 RATIO Delfino Schumacher AustinCOMPREHENSIVE METABOLIC [id number] 00:00:00* Test Item Value Reference Range Interpretation Comme nts GLUCOSE (test code = 2217) 74 MG/DL BUN (test code = 2208) 16 MG/DL CREATININE (test code = 2214) 0.96 MG/DL eGFR (2020 CKD-EPI) (test co de = 80425) 69 ML/MIN/1.73 CALC BUN/CREAT (test code = [...] = 2219) 13 U/L Delfino Sch[facility] AustinLIPID [id number] 00:00:00* Test Item Value Reference Range Interpretation Comme nts CHOLESTEROL (test code = 2210) 183 MG/DL TRIGLYCERIDES (test code = 2232) 69 MG/DL HDL CHOLESTEROL (test code = 2220) 93 MG/DL CALC LDL CHOL (test code = 2237) 75 MG/DL RISK RATIO LDL/HDL (test cod e = 2238) 0.81 RATIO LIPID [id number] 00:00:00* Test Item Value Reference Range Interpretation Comme nts CHOLESTEROL (test code = 2210) 183 MG/DL TRIGLYCERIDES (test code = 2232) 69 MG/DL HDL CHOLESTEROL (test code = 2220) 93 MG/DL CALC LDL CHOL (test code = 2237) 75 MG/DL RISK RATIO LDL/HDL (test cod e = 2238) 0.81 RATIO Delfino Schumacher YouCOMPREHENSIVE METABOLIC [id number] 00:00:00* Test Item Value Reference Range Interpretation Comme nts GLUCOSE (test code = 2217) 74 MG/DL BUN (test code = 2208) 16 MG/DL CREATININE (test code = 2214) 0.96 MG/DL eGFR (2020 CKD-EPI) (test co de = 94086) 69 ML/MIN/1.73 CALC BUN/CREAT (test code = [...] code = 2219) 13 U/L Delfino OrtaLIPID [id number] 00:00:00* Test Item Value Reference Range Interpretation Comme nts CHOLESTEROL (test code = 2210) 183 MG/DL TRIGLYCERIDES (test code = 2232) 69 MG/DL HDL CHOLESTEROL (test code = 2220) 93 MG/DL CALC LDL CHOL (test code = 2237) 75 MG/DL RISK RATIO LDL/HDL (test cod e = 2238) 0.81 RATIO Delfino OrtaCOMPREHENSIVE METABOLIC [id number] 00:00:00* Test Item Value Reference Range Interpretation Comme nts GLUCOSE (test code = 2217) 74 MG/DL BUN (test code = 2208) 16 MG/DL CREATININE (test code = 2214) 0.96 MG/DL eGFR (2020 CKD-EPI) (test co de = 40067) 69 ML/MIN/1.73 CALC BUN/CREAT (test code = [...] = 2219) 13 U/L Delfino Sch[facility] AustinLIPID [id number] 00:00:00* Test Item Value Reference Range Interpretation Comme nts CHOLESTEROL (test code = 2210) 183 MG/DL TRIGLYCERIDES (test code = 2232) 69 MG/DL HDL CHOLESTEROL (test code = 2220) 93 MG/DL CALC LDL CHOL (test code = 2237) 75 MG/DL RISK RATIO LDL/HDL (test cod e = 2238) 0.81 RATIO Delfino OrtaCOMPREHENSIVE METABOLIC [id number] 00:00:00* Test Item Value Reference Range Interpretation Comme nts GLUCOSE (test code = 2217) 74 MG/DL BUN (test code = 2208) 16 MG/DL CREATININE (test code = 2214) 0.96 MG/DL eGFR (2020 CKD-EPI) (test co de = 87294) 69 ML/MIN/1.73 CALC BUN/CREAT (test code = [...] = 2219) 13 U/L Delfino Sch[facility] AustinLIPID [id number] 00:00:00* Test Item Value Reference Range Interpretation Comme nts CHOLESTEROL (test code = 2210) 183 MG/DL TRIGLYCERIDES (test code = 2232) 69 MG/DL HDL CHOLESTEROL (test code = 2220) 93 MG/DL CALC LDL CHOL (test code = 2237) 75 MG/DL RISK RATIO LDL/HDL (test cod e = 2238) 0.81 RATIO Delfino Schumacher AustinCOMPREHENSIVE METABOLIC [id number] 00:00:00* Test Item Value Reference Range Interpretation Comme nts GLUCOSE (test code = 2217) 74 MG/DL BUN (test code = 2208) 16 MG/DL CREATININE (test code = 2214) 0.96 MG/DL eGFR (2020 CKD-EPI) (test co de = 30073) 69 ML/MIN/1.73 CALC BUN/CREAT (test code = [...] = 2219) 13 U/L Delfino Sch[facility] AustinLIPID [id number] 00:00:00* Test Item Value Reference Range Interpretation Comme nts CHOLESTEROL (test code = 2210) 183 MG/DL TRIGLYCERIDES (test code = 2232) 69 MG/DL HDL CHOLESTEROL (test code = 2220) 93 MG/DL CALC LDL CHOL (test code = 2237) 75 MG/DL RISK RATIO LDL/HDL (test cod e = 2238) 0.81 RATIO Delfino Schumacher AustinCOMPREHENSIVE METABOLIC [id number] 00:00:00* Test Item Value Reference Range Interpretation Comme nts GLUCOSE (test code = 2217) 74 MG/DL BUN (test code = 2208) 16 MG/DL CREATININE (test code = 2214) 0.96 MG/DL eGFR (2020 CKD-EPI) (test co de = 38184) 69 ML/MIN/1.73 CALC BUN/CREAT (test code = [...] code = 2219) 13 U/L Delfino Endy [place]staff[place] [id number] 00:00:00* Test Item Value Reference Range Interpretation Comme nts CHOLESTEROL (test code = 2210) 183 MG/DL TRIGLYCERIDES (test code = 2232) 69 MG/DL HDL CHOLESTEROL (test code = 2220) 93 MG/DL CALC LDL CHOL (test code = 2237) 75 MG/DL RISK RATIO LDL/HDL (test cod e = 2238) 0.81 RATIO Delfino Schumacher YouCOMPREHENSIVE METABOLIC [id number] 00:00:00* Test Item Value Reference Range Interpretation Comme nts GLUCOSE (test code = 2217) 74 MG/DL BUN (test code = 2208) 16 MG/DL CREATININE (test code = 2214) 0.96 MG/DL eGFR (2020 CKD-EPI) (test co de = 98858) 69 ML/MIN/1.73 CALC BUN/CREAT (test code = [...] code = 2219) 13 U/L Delfino OrtaLIPID [id number] 00:00:00* Test Item Value Reference Range Interpretation Comme nts CHOLESTEROL (test code = 2210) 183 MG/DL TRIGLYCERIDES (test code = 2232) 69 MG/DL HDL CHOLESTEROL (test code = 2220) 93 MG/DL CALC LDL CHOL (test code = 2237) 75 MG/DL RISK RATIO LDL/HDL (test cod e = 2238) 0.81 RATIO Delfino OrtaCOMPREHENSIVE METABOLIC [id number] 00:00:00* Test Item Value Reference Range Interpretation Comme nts GLUCOSE (test code = 2217) 74 MG/DL BUN (test code = 2208) 16 MG/DL CREATININE (test code = 2214) 0.96 MG/DL eGFR (2020 CKD-EPI) (test co de = 36413) 69 ML/MIN/1.73 CALC BUN/CREAT (test code = [...] code = 2219) 13 U/L Delfino OrtaLIPID [id number] 00:00:00* Test Item Value Reference Range Interpretation Comme nts CHOLESTEROL (test code = 2210) 183 MG/DL TRIGLYCERIDES (test code = 2232) 69 MG/DL HDL CHOLESTEROL (test code = 2220) 93 MG/DL CALC LDL CHOL (test code = 2237) 75 MG/DL RISK RATIO LDL/HDL (test cod e = 2238) 0.81 RATIO Delfino OrtaCOMPREHENSIVE METABOLIC [id number] 00:00:00* Test Item Value Reference Range Interpretation Comme nts GLUCOSE (test code = 2217) 74 MG/DL BUN (test code = 2208) 16 MG/DL CREATININE (test code = 2214) 0.96 MG/DL eGFR (2020 CKD-EPI) (test co de = 03664) 69 ML/MIN/1.73 CALC BUN/CREAT (test code = [...] = 2219) 13 U/L Delfino Sch[facility] AustinLIPID [id number] 00:00:00* Test Item Value Reference Range Interpretation Comme nts CHOLESTEROL (test code = 2210) 183 MG/DL TRIGLYCERIDES (test code = 2232) 69 MG/DL HDL CHOLESTEROL (test code = 2220) 93 MG/DL CALC LDL CHOL (test code = 2237) 75 MG/DL RISK RATIO LDL/HDL (test cod e = 2238) 0.81 RATIO Delfino OrtaCOMPREHENSIVE METABOLIC [id number] 00:00:00* Test Item Value Reference Range Interpretation Comme nts GLUCOSE (test code = 2217) 74 MG/DL BUN (test code = 2208) 16 MG/DL CREATININE (test code = 2214) 0.96 MG/DL eGFR (2020 CKD-EPI) (test co de = 17438) 69 ML/MIN/1.73 CALC BUN/CREAT (test code = [...] code = 2219) 13 U/L Delfino Schumacher FlagstaffLIP[place] [id number] 00:00:00* Test Item Value Reference Range Interpretation Comme nts CHOLESTEROL (test code = 2210) 183 MG/DL TRIGLYCERIDES (test code = 2232) 69 MG/DL HDL CHOLESTEROL (test code = 2220) 93 MG/DL CALC LDL CHOL (test code = 2237) 75 MG/DL RISK RATIO LDL/HDL (test cod e = 2238) 0.81 RATIO Delfino F YouCOMPREHENSIVE METABOLIC [id number] 00:00:00* Test Item Value Reference Range Interpretation Comme nts GLUCOSE (test code = 2217) 74 MG/DL BUN (test code = 2208) 16 MG/DL CREATININE (test code = 2214) 0.96 MG/DL eGFR (2020 CKD-EPI) (test co de = 45321) 69 ML/MIN/1.73 CALC BUN/CREAT (test code = [...] code = 2219) 13 U/L Delfino Schumacher FlagstaffLIPID [id number] 00:00:00* Test Item Value Reference Range Interpretation Comme nts CHOLESTEROL (test code = 2210) 183 MG/DL TRIGLYCERIDES (test code = 2232) 69 MG/DL HDL CHOLESTEROL (test code = 2220) 93 MG/DL CALC LDL CHOL (test code = 2237) 75 MG/DL RISK RATIO LDL/HDL (test cod e = 2238) 0.81 RATIO Delfino OrtaCOMPREHENSIVE METABOLIC [id number] 00:00:00* Test Item Value Reference Range Interpretation Comme nts GLUCOSE (test code = 2217) 74 MG/DL BUN (test code = 2208) 16 MG/DL CREATININE (test code = 2214) 0.96 MG/DL eGFR (2020 CKD-EPI) (test co de = 99297) 69 ML/MIN/1.73 CALC BUN/CREAT (test code = [...] code = 2219) 13 U/L Delfino OrtaLIPID [id number] 00:00:00* Test Item Value Reference Range Interpretation Comme nts CHOLESTEROL (test code = 2210) 183 MG/DL TRIGLYCERIDES (test code = 2232) 69 MG/DL HDL CHOLESTEROL (test code = 2220) 93 MG/DL CALC LDL CHOL (test code = 2237) 75 MG/DL RISK RATIO LDL/HDL (test cod e = 2238) 0.81 RATIO Delfino Schumacher AustinCOMPREHENSIVE METABOLIC [id number] 00:00:00* Test Item Value Reference Range Interpretation Comme nts GLUCOSE (test code = 2217) 74 MG/DL BUN (test code = 2208) 16 MG/DL CREATININE (test code = 2214) 0.96 MG/DL eGFR (2020 CKD-EPI) (test co de = 54497) 69 ML/MIN/1.73 CALC BUN/CREAT (test code = [...] = 2219) 13 U/L Delfino Schumacher AustinLIPID [id number] 00:00:00* Test Item Value Reference Range Interpretation Comme nts CHOLESTEROL (test code = 2210) 183 MG/DL TRIGLYCERIDES (test code = 2232) 69 MG/DL HDL CHOLESTEROL (test code = 2220) 93 MG/DL CALC LDL CHOL (test code = 2237) 75 MG/DL RISK RATIO LDL/HDL (test cod e = 2238) 0.81 RATIO Delfino Schumacher AustinCOMPREHENSIVE METABOLIC [id number] 00:00:00* Test Item Value Reference Range Interpretation Comme nts GLUCOSE (test code = 2217) 74 MG/DL BUN (test code = 2208) 16 MG/DL CREATININE (test code = 2214) 0.96 MG/DL eGFR (2020 CKD-EPI) (test co de = 15140) 69 ML/MIN/1.73 CALC BUN/CREAT (test code = [...] = 2219) 13 U/L Delfino Schumacher AustinLIPID [id number] 00:00:00* Test Item Value Reference Range Interpretation Comme nts CHOLESTEROL (test code = 2210) 183 MG/DL TRIGLYCERIDES (test code = 2232) 69 MG/DL HDL CHOLESTEROL (test code = 2220) 93 MG/DL CALC LDL CHOL (test code = 2237) 75 MG/DL RISK RATIO LDL/HDL (test cod e = 2238) 0.81 RATIO Delfino Schumacher FlagstaffCOMPREHENSIVE METABOLIC [id number] 00:00:00* Test Item Value Reference Range Interpretation Comme nts GLUCOSE (test code = 2217) 74 MG/DL BUN (test code = 2208) 16 MG/DL CREATININE (test code = 2214) 0.96 MG/DL eGFR (2020 CKD-EPI) (test co de = 48226) 69 ML/MIN/1.73 CALC BUN/CREAT (test code = [...] code = 2219) 13 U/L Delfino OrtaLIPID [id number] 00:00:00* Test Item Value Reference Range Interpretation Comme nts CHOLESTEROL (test code = 2210) 183 MG/DL TRIGLYCERIDES (test code = 2232) 69 MG/DL HDL CHOLESTEROL (test code = 2220) 93 MG/DL CALC LDL CHOL (test code = 2237) 75 MG/DL RISK RATIO LDL/HDL (test cod e = 2238) 0.81 RATIO Delfino OrtaCOMPREHENSIVE METABOLIC [id number] 00:00:00* Test Item Value Reference Range Interpretation Comme nts GLUCOSE (test code = 2217) 74 MG/DL BUN (test code = 2208) 16 MG/DL CREATININE (test code = 2214) 0.96 MG/DL eGFR (2020 CKD-EPI) (test co de = 04860) 69 ML/MIN/1.73 CALC BUN/CREAT (test code = [...] code = 2219) 13 U/L Delfino OrtaLIPID [id number] 00:00:00* Test Item Value Reference Range Interpretation Comme nts CHOLESTEROL (test code = 2210) 183 MG/DL TRIGLYCERIDES (test code = 2232) 69 MG/DL HDL CHOLESTEROL (test code = 2220) 93 MG/DL CALC LDL CHOL (test code = 2237) 75 MG/DL RISK RATIO LDL/HDL (test cod e = 2238) 0.81 RATIO Delfino OrtaCOMPREHENSIVE METABOLIC [id number] 00:00:00* Test Item Value Reference Range Interpretation Comme nts GLUCOSE (test code = 2217) 74 MG/DL BUN (test code = 2208) 16 MG/DL CREATININE (test code = 2214) 0.96 MG/DL eGFR (2020 CKD-EPI) (test co de = 12540) 69 ML/MIN/1.73 CALC BUN/CREAT (test code = [...] code = 2219) 13 U/L Delfino OrtaLIPID [id number] 00:00:00* Test Item Value Reference Range Interpretation Comme nts CHOLESTEROL (test code = 2210) 183 MG/DL TRIGLYCERIDES (test code = 2232) 69 MG/DL HDL CHOLESTEROL (test code = 2220) 93 MG/DL CALC LDL CHOL (test code = 2237) 75 MG/DL RISK RATIO LDL/HDL (test cod e = 2238) 0.81 RATIO Delfino Schumacher AustinCOMPREHENSIVE METABOLIC [id number] 00:00:00* Test Item Value Reference Range Interpretation Comme nts GLUCOSE (test code = 2217) 74 MG/DL BUN (test code = 2208) 16 MG/DL CREATININE (test code = 2214) 0.96 MG/DL eGFR (2020 CKD-EPI) (test co de = 91597) 69 ML/MIN/1.73 CALC BUN/CREAT (test code = [...] = 2219) 13 U/L Delfino Schumacher AustinLIPID [id number] 00:00:00* Test Item Value Reference Range Interpretation Comme nts CHOLESTEROL (test code = 2210) 183 MG/DL TRIGLYCERIDES (test code = 2232) 69 MG/DL HDL CHOLESTEROL (test code = 2220) 93 MG/DL CALC LDL CHOL (test code = 2237) 75 MG/DL RISK RATIO LDL/HDL (test cod e = 2238) 0.81 RATIO Delfino Schumacher AustinCOMPREHENSIVE METABOLIC [id number] 00:00:00* Test Item Value Reference Range Interpretation Comme nts GLUCOSE (test code = 2217) 74 MG/DL BUN (test code = 2208) 16 MG/DL CREATININE (test code = 2214) 0.96 MG/DL eGFR (2020 CKD-EPI) (test co de = 10087) 69 ML/MIN/1.73 CALC BUN/CREAT (test code = [...] code = 2219) 13 U/L Delfino Endy [place]staff[place]IP[place] [id number] 00:00:00* Test Item Value Reference Range Interpretation Comme nts CHOLESTEROL (test code = 2210) 183 MG/DL TRIGLYCERIDES (test code = 2232) 69 MG/DL HDL CHOLESTEROL (test code = 2220) 93 MG/DL CALC LDL CHOL (test code = 2237) 75 MG/DL RISK RATIO LDL/HDL (test cod e = 2238) 0.81 RATIO Delfino Schumacher YouCOMPREHENSIVE METABOLIC [id number] 00:00:00* Test Item Value Reference Range Interpretation Comme nts GLUCOSE (test code = 2217) 74 MG/DL BUN (test code = 2208) 16 MG/DL CREATININE (test code = 2214) 0.96 MG/DL eGFR (2020 CKD-EPI) (test co de = 92796) 69 ML/MIN/1.73 CALC BUN/CREAT (test code = [...] code = 2219) 13 U/L Delfino OrtaLIPID [id number] 00:00:00* Test Item Value Reference Range Interpretation Comme nts CHOLESTEROL (test code = 2210) 183 MG/DL TRIGLYCERIDES (test code = 2232) 69 MG/DL HDL CHOLESTEROL (test code = 2220) 93 MG/DL CALC LDL CHOL (test code = 2237) 75 MG/DL RISK RATIO LDL/HDL (test cod e = 2238) 0.81 RATIO Delfino OrtaCOMPREHENSIVE METABOLIC [id number] 00:00:00* Test Item Value Reference Range Interpretation Comme nts GLUCOSE (test code = 2217) 74 MG/DL BUN (test code = 2208) 16 MG/DL CREATININE (test code = 2214) 0.96 MG/DL eGFR (2020 CKD-EPI) (test co de = 07656) 69 ML/MIN/1.73 CALC BUN/CREAT (test code = [...] (test code = 2219) 13 U/L Delfino OrtaAUBREY, [id number] 09:14:59SPECIMEN NUMBER: [id number] CULTURE, URINE SPECIMEN NUMBER: [id number] SPECIMEN COMMENT: URINE SOURCE: URINE REPORT STATUS: FINAL FINAL REPORT: 07/05/2021 >100,000 CFU/ML MIXED MICROBIAL POPULATION PRESENT, NO PREDOMINATING ORGANISMS;PROBABLE CONTAMINANTS.CULTURE, [id number] 00:00:00* Test Item Value Reference Range Interpretation Comme nts CULTURE, URINE (test code = 56915) SPECIMEN NUMBER: [id number] Delfino Cedeño, [id number] 00:00:00* Test Item Value Reference Range Interpretation Comme nts CULTURE, URINE (test code = 01013) SPECIMEN NUMBER: [id number] Delfino Cedeño, [id number] 00:00:00* Test Item Value Reference Range Interpretation Comme nts CULTURE, URINE (test code = 49641) SPECIMEN NUMBER: [id number] CULTURE, [id number] 00:00:00* Test Item Value Reference Range Interpretation Comme nts CULTURE, URINE (test code = 69360) SPECIMEN NUMBER: [id number] Delfino Cedeño, [id number] 00:00:00* Test Item Value Reference Range Interpretation Comme nts CULTURE, URINE (test code = 64843) SPECIMEN NUMBER: [id number] CULTURE, [id number] 00:00:00* Test Item Value Reference Range Interpretation Comme nts CULTURE, URINE (test code = 60856) SPECIMEN NUMBER: [id number] Delfino Cedeño, [id number] 00:00:00* Test Item Value Reference Range Interpretation Comme nts CULTURE, URINE (test code = 38402) SPECIMEN NUMBER: [id number] CULTURE, [id number] 00:00:00* Test Item Value Reference Range Interpretation Comme nts CULTURE, URINE (test code = 76841) SPECIMEN NUMBER: [id number] Delfino SarmientoLTNIALL, [id number] 00:00:00* Test Item Value Reference Range Interpretation Comme nts CULTURE, URINE (test code = 89347) SPECIMEN NUMBER: [id number] CULTURE, [id number] 00:00:00* Test Item Value Reference Range Interpretation Comme nts CULTURE, URINE (test code = 82788) SPECIMEN NUMBER: [id number] Delfino SarmientoLTNIALL, [id number] 00:00:00* Test Item Value Reference Range Interpretation Comme nts CULTURE, URINE (test code = 03558) SPECIMEN NUMBER: [id number] Delfino Cedeño [id number] 00:00:00* Test Item Value Reference Range Interpretation Comme nts CULTURE, URINE (test code = 06848) SPECIMEN NUMBER: [id number] Delfino Cedeño [id number] 00:00:00* Test Item Value Reference Range Interpretation Comme nts CULTURE, URINE (test code = 97647) SPECIMEN NUMBER: [id number] Delfino Cedeño [id number] 00:00:00* Test Item Value Reference Range Interpretation Comme nts CULTURE, URINE (test code = 71003) SPECIMEN NUMBER: [id number] Delfino eCdeño [id number] 00:00:00* Test Item Value Reference Range Interpretation Comme nts CULTURE, URINE (test code = 23039) SPECIMEN NUMBER: [id number] Delfino Cedeño [id number] 00:00:00* Test Item Value Reference Range Interpretation Comme nts CULTURE, URINE (test code = 55597) SPECIMEN NUMBER: [id number] Delfino Cedeño, [id number] 00:00:00* Test Item Value Reference Range Interpretation Comme nts CULTURE, URINE (test code = 01878) SPECIMEN NUMBER: [id number] Delfino Cedeño [id number] 00:00:00* Test Item Value Reference Range Interpretation Comme nts CULTURE, URINE (test code = 94151) SPECIMEN NUMBER: [id number] Delfino Cedeño, [id number] 00:00:00* Test Item Value Reference Range Interpretation Comme nts CULTURE, URINE (test code = 43568) SPECIMEN NUMBER: [id number] Delfino Cedeño, [id number] 00:00:00* Test Item Value Reference Range Interpretation Comme nts CULTURE, URINE (test code = 90879) SPECIMEN NUMBER: [id number] Delfino Cedeño, [id number] 00:00:00* Test Item Value Reference Range Interpretation Comme nts CULTURE, URINE (test code = 62205) SPECIMEN NUMBER: [id number] Delfino Cedeño [id number] 00:00:00* Test Item Value Reference Range Interpretation Comme nts CULTURE, URINE (test code = 68742) SPECIMEN NUMBER: [id number] ANGEL [id number] 00:00:00* Test Item Value Reference Range Interpretation Comme nts CULTURE, URINE (test code = 40453) SPECIMEN NUMBER: [id number] Delfino Cedeño [id number] 00:00:00* Test Item Value Reference Range Interpretation Comme nts CULTURE, URINE (test code = 97821) SPECIMEN NUMBER: [id number] Delfino Cedeño [id number] 00:00:00* Test Item Value Reference Range Interpretation Comme nts CULTURE, URINE (test code = 21819) SPECIMEN NUMBER: [id number] Delfino Cedeño [id number] 00:00:00* Test Item Value Reference Range Interpretation Comme nts CULTURE, URINE (test code = 23418) SPECIMEN NUMBER: [id number] Delfino Cedeño [id number] 00:00:00* Test Item Value Reference Range Interpretation Comme nts CULTURE, URINE (test code = 79156) SPECIMEN NUMBER: [id number] ANGEL [id number] 00:00:00* Test Item Value Reference Range Interpretation Comme nts CULTURE, URINE (test code = 85052) SPECIMEN NUMBER: [id number] Delfino OrtaVAGINAL PATHOGENS DNA [id number] 15:31:31* Test Item Value Reference Range Interpretation Comme nts DIANNA SPECIES (test code = 36252) NEGATIVE NEGATIVE G. VAGINALIS (test code = 18429) NEGATIVE NEGATIVE T. VAGINALIS (test code = 65326) NEGATIVE NEGATIVE UNLESS OTHERWISE INDICATED, [facility] TEST[facility] [address] [place] [address] [employer] FORMER: ALYSSIA FRASER M.D. CLIA NUMBER [id number] [place]. [id number] VAGINAL PATHOGENS DNA [id number] 00:00:00* Test Item Value Reference Range Interpretation Comme nts DIANNA SPECIES (test code = 19611) NEGATIVE G. VAGINALIS (test code = 35293) NEGATIVE T. VAGINALIS (test code = 60109) NEGATIVE Delfino F AustinVAGINAL PATHOGENS DNA [id number] 00:00:00* Test Item Value Reference Range Interpretation Comme nts DIANNA SPECIES (test code = 23921) NEGATIVE G. VAGINALIS (test code = 01988) NEGATIVE T. VAGINALIS (test code = 03926) NEGATIVE Delfino F AustinVAGINAL PATHOGENS DNA [id number] 00:00:00* Test Item Value Reference Range Interpretation Comme nts DIANNA SPECIES (test code = 26511) NEGATIVE G. VAGINALIS (test code = 42755) NEGATIVE T. VAGINALIS (test code = 70775) NEGATIVE VAGINAL PATHOGENS DNA [id number] 00:00:00* Test Item Value Reference Range Interpretation Comme nts DIANNA SPECIES (test code = 92940) NEGATIVE G. VAGINALIS (test code = 18432) NEGATIVE T. VAGINALIS (test code = 23105) NEGATIVE Delfino F AustinVAGINAL PATHOGENS DNA [id number] 00:00:00* Test Item Value Reference Range Interpretation Comme nts DIANNA SPECIES (test code = 75538) NEGATIVE G. VAGINALIS (test code = 04685) NEGATIVE T. VAGINALIS (test code = 40516) NEGATIVE VAGINAL PATHOGENS DNA [id number] 00:00:00* Test Item Value Reference Range Interpretation Comme nts DIANNA SPECIES (test code = 77456) NEGATIVE G. VAGINALIS (test code = 02037) NEGATIVE T. VAGINALIS (test code = 72594) NEGATIVE Delfino F AustinVAGINAL PATHOGENS DNA [id number] 00:00:00* Test Item Value Reference Range Interpretation Comme nts DIANNA SPECIES (test code = 58911) NEGATIVE G. VAGINALIS (test code = 88406) NEGATIVE T. VAGINALIS (test code = 74944) NEGATIVE Delfino F AustinVAGINAL PATHOGENS DNA [id number] 00:00:00* Test Item Value Reference Range Interpretation Comme nts DIANNA SPECIES (test code = 10618) NEGATIVE G. VAGINALIS (test code = 65189) NEGATIVE T. VAGINALIS (test code = 59971) NEGATIVE VAGINAL PATHOGENS DNA [id number] 00:00:00* Test Item Value Reference Range Interpretation Comme nts DIANNA SPECIES (test code = 51125) NEGATIVE G. VAGINALIS (test code = 01896) NEGATIVE T. VAGINALIS (test code = 65080) NEGATIVE Delfino F AustinVAGINAL PATHOGENS DNA [id number] 00:00:00* Test Item Value Reference Range Interpretation Comme nts DIANNA SPECIES (test code = 80107) NEGATIVE G. VAGINALIS (test code = 53148) NEGATIVE T. VAGINALIS (test code = 74559) NEGATIVE VAGINAL PATHOGENS DNA [id number] 00:00:00* Test Item Value Reference Range Interpretation Comme nts DIANNA SPECIES (test code = 33019) NEGATIVE G. VAGINALIS (test code = 32427) NEGATIVE T. VAGINALIS (test code = 64423) NEGATIVE Delfino F AustinVAGINAL PATHOGENS DNA [id number] 00:00:00* Test Item Value Reference Range Interpretation Comme nts DIANNA SPECIES (test code = 28166) NEGATIVE G. VAGINALIS (test code = 91203) NEGATIVE T. VAGINALIS (test code = 55365) NEGATIVE Delfino F AustinVAGINAL PATHOGENS DNA [id number] 00:00:00* Test Item Value Reference Range Interpretation Comme nts DIANNA SPECIES (test code = 08951) NEGATIVE G. VAGINALIS (test code = 45328) NEGATIVE T. VAGINALIS (test code = 90895) NEGATIVE Delfino F AustinVAGINAL PATHOGENS DNA [id number] 00:00:00* Test Item Value Reference Range Interpretation Comme nts DIANNA SPECIES (test code = 39046) NEGATIVE G. VAGINALIS (test code = 86891) NEGATIVE T. VAGINALIS (test code = 00312) NEGATIVE Delfino F AustinVAGINAL PATHOGENS DNA [id number] 00:00:00* Test Item Value Reference Range Interpretation Comme nts DIANNA SPECIES (test code = 19886) NEGATIVE G. VAGINALIS (test code = 97480) NEGATIVE T. VAGINALIS (test code = 72864) NEGATIVE Delfino F AustinVAGINAL PATHOGENS DNA [id number] 00:00:00* Test Item Value Reference Range Interpretation Comme nts DIANNA SPECIES (test code = 54958) NEGATIVE G. VAGINALIS (test code = 27630) NEGATIVE T. VAGINALIS (test code = 13385) NEGATIVE Delfino F AustinVAGINAL PATHOGENS DNA [id number] 00:00:00* Test Item Value Reference Range Interpretation Comme nts DIANNA SPECIES (test code = ) NEGATIVE G. VAGINALIS (test code = 67409) NEGATIVE T. VAGINALIS (test code = 38382) NEGATIVE Delfino F AustinVAGINAL PATHOGENS DNA [id number] 00:00:00* Test Item Value Reference Range Interpretation Comme nts DIANNA SPECIES (test code = 52465) NEGATIVE G. VAGINALIS (test code = 38931) NEGATIVE T. VAGINALIS (test code = 54040) NEGATIVE Delfino F AustinVAGINAL PATHOGENS DNA [id number] 00:00:00* Test Item Value Reference Range Interpretation Comme nts DIANNA SPECIES (test code = 74111) NEGATIVE G. VAGINALIS (test code = 40397) NEGATIVE T. VAGINALIS (test code = 45858) NEGATIVE Delfino F AustinVAGINAL PATHOGENS DNA [id number] 00:00:00* Test Item Value Reference Range Interpretation Comme nts DIANNA SPECIES (test code = 81239) NEGATIVE G. VAGINALIS (test code = 92944) NEGATIVE T. VAGINALIS (test code = 28244) NEGATIVE Delfino F AustinVAGINAL PATHOGENS DNA [id number] 00:00:00* Test Item Value Reference Range Interpretation Comme nts DIANNA SPECIES (test code = ) NEGATIVE G. VAGINALIS (test code = 31361) NEGATIVE T. VAGINALIS (test code = 30791) NEGATIVE Delfino F AustinVAGINAL PATHOGENS DNA [id number] 00:00:00* Test Item Value Reference Range Interpretation Comme nts DIANNA SPECIES (test code = 04685) NEGATIVE G. VAGINALIS (test code = 67279) NEGATIVE T. VAGINALIS (test code = 69198) NEGATIVE Delfino F AustinVAGINAL PATHOGENS DNA [id number] 00:00:00* Test Item Value Reference Range Interpretation Comme nts DIANNA SPECIES (test code = 43379) NEGATIVE G. VAGINALIS (test code = 04025) NEGATIVE T. VAGINALIS (test code = 87790) NEGATIVE Delfino F AustinVAGINAL PATHOGENS DNA [id number] 00:00:00* Test Item Value Reference Range Interpretation Comme nts DIANNA SPECIES (test code = 84421) NEGATIVE G. VAGINALIS (test code = 03263) NEGATIVE T. VAGINALIS (test code = 71914) NEGATIVE Delfino F AustinVAGINAL PATHOGENS DNA [id number] 00:00:00* Test Item Value Reference Range Interpretation Comme nts DIANNA SPECIES (test code = ) NEGATIVE G. VAGINALIS (test code = 12694) NEGATIVE T. VAGINALIS (test code = ) NEGATIVE Delfino Schumacher AustinVAGINAL PATHOGENS DNA [id number] 00:00:00* Test Item Value Reference Range Interpretation Comme nts DIANNA SPECIES (test code = ) NEGATIVE G. VAGINALIS (test code = 82872) NEGATIVE T. VAGINALIS (test code = 52315) NEGATIVE Delfino Schumacher AustinV[facility] PATH[facility] DNA [id number] 00:00:00* Test Item Value Reference Range Interpretation Comme nts DIANNA SPECIES (test code = ) NEGATIVE G. VAGINALIS (test code = 84416) NEGATIVE T. VAGINALIS (test code = ) NEGATIVE Delfino Schumacher AustinVAGINAL PATHOGENS DNA [id number] 00:00:00* Test Item Value Reference Range Interpretation Comme nts DIANNA SPECIES (test code = ) NEGATIVE G. VAGINALIS (test code = 07590) NEGATIVE T. VAGINALIS (test code = ) NEGATIVE Delfino SarmientoLTNIALL, [id number] 12:43:02SPECIMEN NUMBER: [id number] CULTURE, URINE SPECIMEN NUMBER: [id number] SPECIMEN COMMENT: URINE SOURCE: URINE REPORT STATUS: [...] Comme nts CULTURE, URINE (test code = 49855) SPECIMEN NUMBER: [id number] Delfino OrtaCULTURE, [id number] 00:00:00* Test Item Value Reference Range Interpretation Comme nts CULTURE, URINE (test code = 41020) SPECIMEN NUMBER: [id number] Delfino SarmientoLTNIALL, [id number] 00:00:00* Test Item Value Reference Range Interpretation Comme nts CULTURE, URINE (test code = 40307) SPECIMEN NUMBER: [id number] Delfino SarmientoLTNIALL, [id number] 00:00:00* Test Item Value Reference Range Interpretation Comme nts CULTURE, URINE (test code = 38404) SPECIMEN NUMBER: [id number] CULTURE, [id number] 00:00:00* Test Item Value Reference Range Interpretation Comme nts CULTURE, URINE (test code = 27334) SPECIMEN NUMBER: [id number] CULTURE, [id number] 00:00:00* Test Item Value Reference Range Interpretation Comme nts CULTURE, URINE (test code = 01732) SPECIMEN NUMBER: [id number] Delfino SarmientoLTNIALL, [id number] 00:00:00* Test Item Value Reference Range Interpretation Comme nts CULTURE, URINE (test code = 88895) SPECIMEN NUMBER: [id number] CULTURE, [id number] 00:00:00* Test Item Value Reference Range Interpretation Comme nts CULTURE, URINE (test code = 90697) SPECIMEN NUMBER: [id number] Delfino SarmientoLTNIALL, [id number] 00:00:00* Test Item Value Reference Range Interpretation Comme nts CULTURE, URINE (test code = 15754) SPECIMEN NUMBER: [id number] CULTURE, [id number] 00:00:00* Test Item Value Reference Range Interpretation Comme nts CULTURE, URINE (test code = 55428) SPECIMEN NUMBER: [id number] Delfino SarmientoLTNIALL, [id number] 00:00:00* Test Item Value Reference Range Interpretation Comme nts CULTURE, URINE (test code = 46885) SPECIMEN NUMBER: [id number] Delfino SarmientoLTURE, [id number] 00:00:00* Test Item Value Reference Range Interpretation Comme nts CULTURE, URINE (test code = 68654) SPECIMEN NUMBER: [id number] Delfino SarmientoLTNIALL, [id number] 00:00:00* Test Item Value Reference Range Interpretation Comme nts CULTURE, URINE (test code = 48858) SPECIMEN NUMBER: [id number] Delfino Cedeño, [id number] 00:00:00* Test Item Value Reference Range Interpretation Comme nts CULTURE, URINE (test code = 61286) SPECIMEN NUMBER: [id number] Delfino Cedeño, [id number] 00:00:00* Test Item Value Reference Range Interpretation Comme nts CULTURE, URINE (test code = 30799) SPECIMEN NUMBER: [id number] Delfino Cedeño, [id number] 00:00:00* Test Item Value Reference Range Interpretation Comme nts CULTURE, URINE (test code = 19111) SPECIMEN NUMBER: [id number] Delfino Cedeño, [id number] 00:00:00* Test Item Value Reference Range Interpretation Comme nts CULTURE, URINE (test code = 46391) SPECIMEN NUMBER: [id number] Delfino Cedeño, [id number] 00:00:00* Test Item Value Reference Range Interpretation Comme nts CULTURE, URINE (test code = 54351) SPECIMEN NUMBER: [id number] Delfino SarmientoLTNIALL, [id number] 00:00:00* Test Item Value Reference Range Interpretation Comme nts CULTURE, URINE (test code = 15919) SPECIMEN NUMBER: [id number] Delfino SarmientoLTNIALL, [id number] 00:00:00* Test Item Value Reference Range Interpretation Comme nts CULTURE, URINE (test code = 25127) SPECIMEN NUMBER: [id number] Delfino SarmientoLTNIALL, [id number] 00:00:00* Test Item Value Reference Range Interpretation Comme nts CULTURE, URINE (test code = 67428) SPECIMEN NUMBER: [id number] Delfino SarmientoLTNIALL, [id number] 00:00:00* Test Item Value Reference Range Interpretation Comme nts CULTURE, URINE (test code = 26973) SPECIMEN NUMBER: [id number] Dlefino SarmientoLTNIALL, [id number] 00:00:00* Test Item Value Reference Range Interpretation Comme nts CULTURE, URINE (test code = 55631) SPECIMEN NUMBER: [id number] Delfino SarmientoLTURE, [id number] 00:00:00* Test Item Value Reference Range Interpretation Comme nts CULTURE, URINE (test code = 48690) SPECIMEN NUMBER: [id number] Delfino SarmientoLTNIALL, [id number] 00:00:00* Test Item Value Reference Range Interpretation Comme nts CULTURE, URINE (test code = 14630) SPECIMEN NUMBER: [id number] Delfino OrtaCULTURE, [id number] 00:00:00* Test Item Value Reference Range Interpretation Comme nts CULTURE, URINE (test code = 86435) SPECIMEN NUMBER: [id number] Delfino OrtaCULTURE, [id number] 00:00:00* Test Item Value Reference Range Interpretation Comme nts CULTURE, URINE (test code = 78583) SPECIMEN NUMBER: [id number] Delfino SarmientoLTURE, [id number] 00:00:00* Test Item Value Reference Range Interpretation Comme nts CULTURE, URINE (test code = 78124) SPECIMEN NUMBER: [id number] Delfino OrtaURINALYSIS WITH [id number] 07:51:12* Test Item Value Reference Range Interpretation [...] code = 1510) 0.2 MG/DL See_Comment [Automated Diurnala ge] The system which generated this result [...] 0-5 A EPITHELIAL CELLS (test code = 77758) 0-5 /HPF 0-10 BACTERIA (test code = 1515) 3+ NONE SEEN A CASTS, HYALINE (test code = 1517) TRACE NONE-TRACE UNLESS OTHERWISE INDICATED, ALL TESTING PERFORMED [facility] [address] [place] [address] [employer] FORMER: ALYSSIA FRASER M.D. [place] NUMBER [id number] [facility] [place]. [id number] URINALYSIS WITH [id number] 00:00:00* Test Item Value Reference Range Interpretation [...] >50 /HPF EPITHELIAL CELLS (test code = 49137) 0-5 /HPF BACTERIA (test code = 1515) 3+ CASTS, HYALINE (test code = 1517) TRACE Delfino Schumacher AustinURINALYSIS WITH [id number] 00:00:00* Test Item Value Reference Range Interpretation [...] >50 /HPF EPITHELIAL CELLS (test code = 41199) 0-5 /HPF BACTERIA (test code = 1515) 3+ CASTS, HYALINE (test code = 1517) TONY Schumacher AustinURINALYSIS WITH [id number] 00:00:00* Test Item Value Reference Range Interpretation [...] >50 /HPF EPITHELIAL CELLS (test code = 12207) 0-5 /HPF BACTERIA (test code = 1515) 3+ CASTS, HYALINE (test code = 1517) TONY Schumacher AustinURINALYSIS WITH [id number] 00:00:00* Test Item Value Reference Range Interpretation [...] >50 /HPF EPITHELIAL CELLS (test code = 79518) 0-5 /HPF BACTERIA (test code = 1515) 3+ CASTS, HYALINE (test code = 1517) TONY Schumacher AustinURINALYSIS WITH [id number] 00:00:00* Test Item Value Reference Range Interpretation [...] >50 /HPF EPITHELIAL CELLS (test code = 91005) 0-5 /HPF BACTERIA (test code = 1515) 3+ CASTS, HYALINE (test code = 1517) TRACE URINALYSIS WITH [id number] 00:00:00* Test Item Value Reference Range Interpretation [...] >50 /HPF EPITHELIAL CELLS (test code = 42398) 0-5 /HPF BACTERIA (test code = 1515) 3+ CASTS, HYALINE (test code = 1517) TRACE URINALYSIS WITH [id number] 00:00:00* Test Item Value Reference Range Interpretation [...] >50 /HPF EPITHELIAL CELLS (test code = 41031) 0-5 /HPF BACTERIA (test code = 1515) 3+ CASTS, HYALINE (test code = 1517) TRACE Delfino Schumacher AustinURINALYSIS WITH [id number] 00:00:00* Test Item Value Reference Range Interpretation [...] >50 /HPF EPITHELIAL CELLS (test code = 45804) 0-5 /HPF BACTERIA (test code = 1515) 3+ CASTS, HYALINE (test code = 1517) TRACE URINALYSIS WITH [id number] 00:00:00* Test Item Value Reference Range Interpretation [...] >50 /HPF EPITHELIAL CELLS (test code = 21161) 0-5 /HPF BACTERIA (test code = 1515) 3+ CASTS, HYALINE (test code = 1517) TRACE Delfino F AustinURINALYSIS WITH [id number] 00:00:00* Test Item Value Reference Range Interpretation [...] >50 /HPF EPITHELIAL CELLS (test code = 08647) 0-5 /HPF BACTERIA (test code = 1515) 3+ CASTS, HYALINE (test code = 1517) TRACE URINALYSIS WITH [id number] 00:00:00* Test Item Value Reference Range Interpretation [...] >50 /HPF EPITHELIAL CELLS (test code = 46682) 0-5 /HPF BACTERIA (test code = 1515) 3+ CASTS, HYALINE (test code = 1517) TONY Schumacher AustinURINALYSIS WITH [id number] 00:00:00* Test Item Value Reference Range Interpretation [...] >50 /HPF EPITHELIAL CELLS (test code = 40635) 0-5 /HPF BACTERIA (test code = 1515) 3+ CASTS, HYALINE (test code = 1517) TONY Schumacher AustinURINALYSIS WITH [id number] 00:00:00* Test Item Value Reference Range Interpretation [...] >50 /HPF EPITHELIAL CELLS (test code = 68116) 0-5 /HPF BACTERIA (test code = 1515) 3+ CASTS, HYALINE (test code = 1517) TONY Schumacher AustinURINALYSIS WITH [id number] 00:00:00* Test Item Value Reference Range Interpretation [...] >50 /HPF EPITHELIAL CELLS (test code = 22877) 0-5 /HPF BACTERIA (test code = 1515) 3+ CASTS, HYALINE (test code = 1517) TRACE Delfino Schumacher AustinURINALYSIS WITH [id number] 00:00:00* Test Item Value Reference Range Interpretation [...] >50 /HPF EPITHELIAL CELLS (test code = 29354) 0-5 /HPF BACTERIA (test code = 1515) 3+ CASTS, HYALINE (test code = 1517) TRACE Delfino Schumacher AustinURINALYSIS WITH [id number] 00:00:00* Test Item Value Reference Range Interpretation [...] >50 /HPF EPITHELIAL CELLS (test code = 40268) 0-5 /HPF BACTERIA (test code = 1515) 3+ CASTS, HYALINE (test code = 1517) TONY Schumacher AustinURINALYSIS WITH [id number] 00:00:00* Test Item Value Reference Range Interpretation [...] >50 /HPF EPITHELIAL CELLS (test code = 75586) 0-5 /HPF BACTERIA (test code = 1515) 3+ CASTS, HYALINE (test code = 1517) TONY Schumacher AustinURINALYSIS WITH [id number] 00:00:00* Test Item Value Reference Range Interpretation [...] >50 /HPF EPITHELIAL CELLS (test code = 67431) 0-5 /HPF BACTERIA (test code = 1515) 3+ CASTS, HYALINE (test code = 1517) TONY Schumacher AustinURINALYSIS WITH [id number] 00:00:00* Test Item Value Reference Range Interpretation [...] >50 /HPF EPITHELIAL CELLS (test code = 36562) 0-5 /HPF BACTERIA (test code = 1515) 3+ CASTS, HYALINE (test code = 1517) TONY Schumacher AustinURINALYSIS WITH [id number] 00:00:00* Test Item Value Reference Range Interpretation [...] >50 /HPF EPITHELIAL CELLS (test code = 72767) 0-5 /HPF BACTERIA (test code = 1515) 3+ CASTS, HYALINE (test code = 1517) TONY Schumacher AustinURINALYSIS WITH [id number] 00:00:00* Test Item Value Reference Range Interpretation [...] >50 /HPF EPITHELIAL CELLS (test code = 28314) 0-5 /HPF BACTERIA (test code = 1515) 3+ CASTS, HYALINE (test code = 1517) TONY Schumacher AustinURINALYSIS WITH [id number] 00:00:00* Test Item Value Reference Range Interpretation [...] >50 /HPF EPITHELIAL CELLS (test code = 92596) 0-5 /HPF BACTERIA (test code = 1515) 3+ CASTS, HYALINE (test code = 1517) TONY Schumacher AustinURINALYSIS WITH [id number] 00:00:00* Test Item Value Reference Range Interpretation [...] >50 /HPF EPITHELIAL CELLS (test code = 59929) 0-5 /HPF BACTERIA (test code = 1515) 3+ CASTS, HYALINE (test code = 1517) TRACE Delfino Schumacher AustinURINALYSIS WITH [id number] 00:00:00* Test Item Value Reference Range Interpretation [...] >50 /HPF EPITHELIAL CELLS (test code = 47961) 0-5 /HPF BACTERIA (test code = 1515) 3+ CASTS, HYALINE (test code = 1517) TRACE Delfino Schumacher AustinURINALYSIS WITH [id number] 00:00:00* Test Item Value Reference Range Interpretation [...] >50 /HPF EPITHELIAL CELLS (test code = 79241) 0-5 /HPF BACTERIA (test code = 1515) 3+ CASTS, HYALINE (test code = 1517) TONY Schumacher AustinURINALYSIS WITH [id number] 00:00:00* Test Item Value Reference Range Interpretation [...] >50 /HPF EPITHELIAL CELLS (test code = 29505) 0-5 /HPF BACTERIA (test code = 1515) 3+ CASTS, HYALINE (test code = 1517) TONY Schumacher AustinURINALYSIS WITH [id number] 00:00:00* Test Item Value Reference Range Interpretation [...] >50 /HPF EPITHELIAL CELLS (test code = 12017) 0-5 /HPF BACTERIA (test code = 1515) 3+ CASTS, HYALINE (test code = 1517) TRACE Delfino Schumacher AustinURINALYSIS WITH [id number] 00:00:00* Test Item Value Reference Range Interpretation [...] >50 /HPF EPITHELIAL CELLS (test code = 27114) 0-5 /HPF BACTERIA (test code = 1515) 3+ CASTS, HYALINE (test code = 1517) TONY OrtaCOMPREHENSIVE METABOLIC [id number] 00:00:00* Test Item Value Reference Range Interpretation Comme nts GLUCOSE (test code = 2217) 80 MG/DL BUN (test code = 2208) 18 MG/DL CREATININE (test code = 2214) 1.06 MG/DL eGFR AMER. (test cod e = 80680) 67 ML/MIN/1.73 eGFR NON- AMER. (test code = 68891) 58 ML/MIN/1.73 CALC BUN/CREAT (test code = [...] (test code = 2219) 54 U/L [facility] [id number] 00:00:00* Test Item Value Reference Range Interpretation [...] ABS NUCLEATED RBCS (test cod e = 68825) 0.00 K/UL COMMENTS (test code = 1016) (NOTE) Delfino OrtaCBC W/AUTO [id number] 00:00:00* Test Item Value Reference Range Interpretation [...] ABS NUCLEATED RBCS (test cod e = 21056) 0.00 K/UL COMMENTS (test code = 1016) (NOTE) Delfino OrtaLIPID [id number] 00:00:00* Test Item Value Reference Range Interpretation Comme nts CHOLESTEROL (test code = 2210) 174 MG/DL TRIGLYCERIDES (test code = 2232) 63 MG/DL HDL CHOLESTEROL (test code = 2220) 87 MG/DL CALC LDL CHOL (test code = 2237) 73 MG/DL RISK RATIO LDL/HDL (test cod e = 2238) 0.84 RATIO Delfino OrtaCOMPREHENSIVE METABOLIC [id number] 00:00:00* Test Item Value Reference Range Interpretation Comme nts GLUCOSE (test code = 2217) 80 MG/DL BUN (test code = 2208) 18 MG/DL CREATININE (test code = 2214) 1.06 MG/DL eGFR AMER. (test cod e = 95730) 67 ML/MIN/1.73 eGFR NON- AMER. (test code = 44989) 58 ML/MIN/1.73 CALC BUN/CREAT (test code = [...] code = 2219) 54 U/L Delfino Schumacher [facility] W/AUTO [id number] 00:00:00* Test Item Value Reference Range Interpretation [...] ABS NUCLEATED RBCS (test cod e = 24776) 0.00 K/UL COMMENTS (test code = 1016) (NOTE) CBC W/AUTO [id number] 00:00:00* Test Item Value Reference Range Interpretation [...] ABS NUCLEATED RBCS (test cod e = 57054) 0.00 K/UL COMMENTS (test code = 1016) (NOTE) Delfino OrtaLIPID [id number] 00:00:00* Test Item Value Reference Range Interpretation Comme nts CHOLESTEROL (test code = 2210) 174 MG/DL TRIGLYCERIDES (test code = 2232) 63 MG/DL HDL CHOLESTEROL (test code = 2220) 87 MG/DL CALC LDL CHOL (test code = 2237) 73 MG/DL RISK RATIO LDL/HDL (test cod e = 2238) 0.84 RATIO LIPID [id number] 00:00:00* Test Item Value Reference Range Interpretation Comme nts CHOLESTEROL (test code = 2210) 174 MG/DL TRIGLYCERIDES (test code = 2232) 63 MG/DL HDL CHOLESTEROL (test code = 2220) 87 MG/DL CALC LDL CHOL (test code = 2237) 73 MG/DL RISK RATIO LDL/HDL (test cod e = 2238) 0.84 RATIO Delfino Schumacher YouCOMPREHENSIVE METABOLIC [id number] 00:00:00* Test Item Value Reference Range Interpretation Comme nts GLUCOSE (test code = 2217) 80 MG/DL BUN (test code = 2208) 18 MG/DL CREATININE (test code = 2214) 1.06 MG/DL eGFR AMER. (test cod e = 20138) 67 ML/MIN/1.73 eGFR NON- AMER. (test code = 75228) 58 ML/MIN/1.73 CALC BUN/CREAT (test code = [...] code = 2219) 54 U/L COMPREHENSIVE METABOLIC [id number] 00:00:00* Test Item Value Reference Range Interpretation Comme nts GLUCOSE (test code = 2217) 80 MG/DL BUN (test code = 2208) 18 MG/DL CREATININE (test code = 2214) 1.06 MG/DL eGFR AMER. (test cod e = 33226) 67 ML/MIN/1.73 eGFR NON- AMER. (test code = 62088) 58 ML/MIN/1.73 CALC BUN/CREAT (test code = [...] (test code = 2219) 54 U/L [facility] [id number] 00:00:00* Test Item Value Reference Range Interpretation [...] ABS NUCLEATED RBCS (test cod e = 86557) 0.00 K/UL COMMENTS (test code = 1016) (NOTE) LIPID [id number] 00:00:00* Test Item Value Reference Range Interpretation Comme nts CHOLESTEROL (test code = 2210) 174 MG/DL TRIGLYCERIDES (test code = 2232) 63 MG/DL HDL CHOLESTEROL (test code = 2220) 87 MG/DL CALC LDL CHOL (test code = 2237) 73 MG/DL RISK RATIO LDL/HDL (test cod e = 2238) 0.84 RATIO CBC W/AUTO [id number] 00:00:00* Test Item Value Reference Range Interpretation [...] ABS NUCLEATED RBCS (test cod e = 41688) 0.00 K/UL COMMENTS (test code = 1016) (NOTE) Delfino Schumacher AustinLIPID [id number] 00:00:00* Test Item Value Reference Range Interpretation Comme nts CHOLESTEROL (test code = 2210) 174 MG/DL TRIGLYCERIDES (test code = 2232) 63 MG/DL HDL CHOLESTEROL (test code = 2220) 87 MG/DL CALC LDL CHOL (test code = 2237) 73 MG/DL RISK RATIO LDL/HDL (test cod e = 2238) 0.84 RATIO Delfino OrtaCOMPREHENSIVE METABOLIC [id number] 00:00:00* Test Item Value Reference Range Interpretation Comme nts GLUCOSE (test code = 2217) 80 MG/DL BUN (test code = 2208) 18 MG/DL CREATININE (test code = 2214) 1.06 MG/DL eGFR AMER. (test cod e = 64170) 67 ML/MIN/1.73 eGFR NON- AMER. (test code = 01900) 58 ML/MIN/1.73 CALC BUN/CREAT (test code = [...] (test code = 2219) 54 U/L LIPID [id number] 00:00:00* Test Item Value Reference Range Interpretation Comme nts CHOLESTEROL (test code = 2210) 174 MG/DL TRIGLYCERIDES (test code = 2232) 63 MG/DL HDL CHOLESTEROL (test code = 2220) 87 MG/DL CALC LDL CHOL (test code = 2237) 73 MG/DL RISK RATIO LDL/HDL (test cod e = 2238) 0.84 RATIO Delfino OrtaCOMPREHENSIVE METABOLIC [id number] 00:00:00* Test Item Value Reference Range Interpretation Comme nts GLUCOSE (test code = 2217) 80 MG/DL BUN (test code = 2208) 18 MG/DL CREATININE (test code = 2214) 1.06 MG/DL eGFR AMER. (test cod e = 31048) 67 ML/MIN/1.73 eGFR NON- AMER. (test code = 85067) 58 ML/MIN/1.73 CALC BUN/CREAT (test code = [...] 2219) 54 U/L Delfino Schumacher YouCBC W/AUTO [id number] 00:00:00* Test Item Value Reference Range Interpretation [...] ABS NUCLEATED RBCS (test cod e = 35876) 0.00 K/UL COMMENTS (test code = 1016) (NOTE) CBC W/AUTO [id number] 00:00:00* Test Item Value Reference Range Interpretation [...] ABS NUCLEATED RBCS (test cod e = 48690) 0.00 K/UL COMMENTS (test code = 1016) (NOTE) Delfino Schumacher AustinLIPID [id number] 00:00:00* Test Item Value Reference Range Interpretation Comme nts CHOLESTEROL (test code = 2210) 174 MG/DL TRIGLYCERIDES (test code = 2232) 63 MG/DL HDL CHOLESTEROL (test code = 2220) 87 MG/DL CALC LDL CHOL (test code = 2237) 73 MG/DL RISK RATIO LDL/HDL (test cod e = 2238) 0.84 RATIO COMPREHENSIVE METABOLIC [id number] 00:00:00* Test Item Value Reference Range Interpretation Comme nts GLUCOSE (test code = 2217) 80 MG/DL BUN (test code = 2208) 18 MG/DL CREATININE (test code = 2214) 1.06 MG/DL eGFR AMER. (test cod e = 61363) 67 ML/MIN/1.73 eGFR NON- AMER. (test code = 03150) 58 ML/MIN/1.73 CALC BUN/CREAT (test code = [...] (test code = 2219) 54 U/L LIPID [id number] 00:00:00* Test Item Value Reference Range Interpretation Comme nts CHOLESTEROL (test code = 2210) 174 MG/DL TRIGLYCERIDES (test code = 2232) 63 MG/DL HDL CHOLESTEROL (test code = 2220) 87 MG/DL CALC LDL CHOL (test code = 2237) 73 MG/DL RISK RATIO LDL/HDL (test cod e = 2238) 0.84 RATIO Delfino OrtaCBC W/AUTO [id number] 00:00:00* Test Item Value Reference Range Interpretation [...] ABS NUCLEATED RBCS (test cod e = 74794) 0.00 K/UL COMMENTS (test code = 1016) (NOTE) COMPREHENSIVE METABOLIC [id number] 00:00:00* Test Item Value Reference Range Interpretation Comme nts GLUCOSE (test code = 2217) 80 MG/DL BUN (test code = 2208) 18 MG/DL CREATININE (test code = 2214) 1.06 MG/DL eGFR AMER. (test cod e = 06710) 67 ML/MIN/1.73 eGFR NON- AMER. (test code = 13335) 58 ML/MIN/1.73 CALC BUN/CREAT (test code = 2235) 17 RATIO SODIUM (test code = 2231) 139 MEQ/L POTASSIUM (test code = 2228) 3.8 MEQ/L CHLORIDE (test code = 2215) 109 MEQ/L CARBON DIOXIDE (test code = 2206) 20 MEQ/L CALCIUM (test code = 2209) 9.9 MG/DL PROTEIN, TOTAL (test code = 222) [...] code = 2219) 54 U/L Delfino F AustinLIPID [id number] 00:00:00* Test Item Value Reference Range Interpretation Comme nts CHOLESTEROL (test code = 2210) 174 MG/DL TRIGLYCERIDES (test code = 2232) 63 MG/DL HDL CHOLESTEROL (test code = 2220) 87 MG/DL CALC LDL CHOL (test code = 2237) 73 MG/DL RISK RATIO LDL/HDL (test cod e = 2238) 0.84 RATIO COMPREHENSIVE METABOLIC [id number] 00:00:00* Test Item Value Reference Range Interpretation Comme nts GLUCOSE (test code = 2217) 80 MG/DL BUN (test code = 2208) 18 MG/DL CREATININE (test code = 2214) 1.06 MG/DL eGFR AMER. (test cod e = 22017) 67 ML/MIN/1.73 eGFR NON- AMER. (test code = 76613) 58 ML/MIN/1.73 CALC BUN/CREAT (test code = [...] code = 2219) 54 U/L CBC W/AUTO [id number] 00:00:00* Test Item Value Reference Range Interpretation [...] ABS NUCLEATED RBCS (test cod e = 23619) 0.00 K/UL COMMENTS (test code = 1016) (NOTE) Delfino OrtaCOMPREHENSIVE METABOLIC [id number] 00:00:00* Test Item Value Reference Range Interpretation Comme nts GLUCOSE (test code = 2217) 80 MG/DL BUN (test code = 2208) 18 MG/DL CREATININE (test code = 2214) 1.06 MG/DL eGFR AMER. (test cod e = 54592) 67 ML/MIN/1.73 eGFR NON- AMER. (test code = 83777) 58 ML/MIN/1.73 CALC BUN/CREAT (test code = [...] = 2219) 54 U/L Delfino Schumacher AustinLIPID [id number] 00:00:00* Test Item Value Reference Range Interpretation Comme nts CHOLESTEROL (test code = 2210) 174 MG/DL TRIGLYCERIDES (test code = 2232) 63 MG/DL HDL CHOLESTEROL (test code = 2220) 87 MG/DL CALC LDL CHOL (test code = 2237) 73 MG/DL RISK RATIO LDL/HDL (test cod e = 2238) 0.84 RATIO Delfino OrtaCOMPREHENSIVE METABOLIC [id number] 00:00:00* Test Item Value Reference Range Interpretation Comme nts GLUCOSE (test code = 2217) 80 MG/DL BUN (test code = 2208) 18 MG/DL CREATININE (test code = 2214) 1.06 MG/DL eGFR AMER. (test cod e = 16320) 67 ML/MIN/1.73 eGFR NON- AMER. (test code = 05495) 58 ML/MIN/1.73 CALC BUN/CREAT (test code = [...] (test code = 2219) 54 U[facility] [id number] 00:00:00* Test Item Value Reference Range Interpretation [...] ABS NUCLEATED RBCS (test cod e = 52677) 0.00 K/UL COMMENTS (test code = 1016) (NOTE) Delfino OrtaLIPID [id number] 00:00:00* Test Item Value Reference Range Interpretation Comme nts CHOLESTEROL (test code = 2210) 174 MG/DL TRIGLYCERIDES (test code = 2232) 63 MG/DL HDL CHOLESTEROL (test code = 2220) 87 MG/DL CALC LDL CHOL (test code = 2237) 73 MG/DL RISK RATIO LDL/HDL (test cod e = 2238) 0.84 RATIO Delfino OrtaCOMPREHENSIVE METABOLIC [id number] 00:00:00* Test Item Value Reference Range Interpretation Comme nts GLUCOSE (test code = 2217) 80 MG/DL BUN (test code = 2208) 18 MG/DL CREATININE (test code = 2214) 1.06 MG/DL eGFR AMER. (test cod e = 55210) 67 ML/MIN/1.73 eGFR NON- AMER. (test code = 64937) 58 ML/MIN/1.73 CALC BUN/CREAT (test code = [...] = 2219) 54 U/L Delfino OrtaCBC W/AUTO [id number] 00:00:00* Test Item Value Reference Range Interpretation [...] ABS NUCLEATED RBCS (test cod e = 76013) 0.00 K/UL COMMENTS (test code = 1016) (NOTE) Delfino OrtaLIPID [id number] 00:00:00* Test Item Value Reference Range Interpretation Comme nts CHOLESTEROL (test code = 2210) 174 MG/DL TRIGLYCERIDES (test code = 2232) 63 MG/DL HDL CHOLESTEROL (test code = 2220) 87 MG/DL CALC LDL CHOL (test code = 2237) 73 MG/DL RISK RATIO LDL/HDL (test cod e = 2238) 0.84 RATIO Delfino OrtaCOMPREHENSIVE METABOLIC [id number] 00:00:00* Test Item Value Reference Range Interpretation Comme nts GLUCOSE (test code = 2217) 80 MG/DL BUN (test code = 2208) 18 MG/DL CREATININE (test code = 2214) 1.06 MG/DL eGFR AMER. (test cod e = 26402) 67 ML/MIN/1.73 eGFR NON- AMER. (test code = 32034) 58 ML/MIN/1.73 CALC BUN/CREAT (test code = [...] code = 2219) 54 U/L Delfino Schumacher [facility] W/AUTO [id number] 00:00:00* Test Item Value Reference Range Interpretation [...] ABS NUCLEATED RBCS (test cod e = 74061) 0.00 K/UL COMMENTS (test code = 1016) (NOTE) Delfino OrtaLIPID [id number] 00:00:00* Test Item Value Reference Range Interpretation Comme nts CHOLESTEROL (test code = 2210) 174 MG/DL TRIGLYCERIDES (test code = 2232) 63 MG/DL HDL CHOLESTEROL (test code = 2220) 87 MG/DL CALC LDL CHOL (test code = 2237) 73 MG/DL RISK RATIO LDL/HDL (test cod e = 2238) 0.84 RATIO Delfino OrtaCOMPREHENSIVE METABOLIC [id number] 00:00:00* Test Item Value Reference Range Interpretation Comme nts GLUCOSE (test code = 2217) 80 MG/DL BUN (test code = 2208) 18 MG/DL CREATININE (test code = 2214) 1.06 MG/DL eGFR AMER. (test cod e = 37156) 67 ML/MIN/1.73 eGFR NON- AMER. (test code = 81729) 58 ML/MIN/1.73 CALC BUN/CREAT (test code = [...] = 2219) 54 U/L Delfino OrtaCBC W/AUTO [id number] 00:00:00* Test Item Value Reference Range Interpretation [...] ABS NUCLEATED RBCS (test cod e = 18484) 0.00 K/UL COMMENTS (test code = 1016) (NOTE) Delfino OrtaLIPID [id number] 00:00:00* Test Item Value Reference Range Interpretation Comme nts CHOLESTEROL (test code = 2210) 174 MG/DL TRIGLYCERIDES (test code = 2232) 63 MG/DL HDL CHOLESTEROL (test code = 2220) 87 MG/DL CALC LDL CHOL (test code = 2237) 73 MG/DL RISK RATIO LDL/HDL (test cod e = 2238) 0.84 RATIO Delfino OrtaCOMPREHENSIVE METABOLIC [id number] 00:00:00* Test Item Value Reference Range Interpretation Comme nts GLUCOSE (test code = 2217) 80 MG/DL BUN (test code = 2208) 18 MG/DL CREATININE (test code = 2214) 1.06 MG/DL eGFR AMER. (test cod e = 93099) 67 ML/MIN/1.73 eGFR NON- AMER. (test code = 43355) 58 ML/MIN/1.73 CALC BUN/CREAT (test code = [...] (test code = 2219) 54 U/L [facility] [id number] 00:00:00* Test Item Value Reference Range Interpretation [...] ABS NUCLEATED RBCS (test cod e = 71051) 0.00 K/UL COMMENTS (test code = 1016) (NOTE) Delfino Schumacher AustinLIPID [id number] 00:00:00* Test Item Value Reference Range Interpretation Comme nts CHOLESTEROL (test code = 2210) 174 MG/DL TRIGLYCERIDES (test code = 2232) 63 MG/DL HDL CHOLESTEROL (test code = 2220) 87 MG/DL CALC LDL CHOL (test code = 2237) 73 MG/DL RISK RATIO LDL/HDL (test cod e = 2238) 0.84 RATIO Delfino OrtaCOMPREHENSIVE METABOLIC [id number] 00:00:00* Test Item Value Reference Range Interpretation Comme nts GLUCOSE (test code = 2217) 80 MG/DL BUN (test code = 2208) 18 MG/DL CREATININE (test code = 2214) 1.06 MG/DL eGFR AMER. (test cod e = 78196) 67 ML/MIN/1.73 eGFR NON- AMER. (test code = 45481) 58 ML/MIN/1.73 CALC BUN/CREAT (test code = [...] = 2219) 54 U/L Delfino OrtaCBC W/AUTO [id number] 00:00:00* Test Item Value Reference Range Interpretation [...] ABS NUCLEATED RBCS (test cod e = 85628) 0.00 K/UL COMMENTS (test code = 1016) (NOTE) Delfino OrtaLIPID [id number] 00:00:00* Test Item Value Reference Range Interpretation Comme nts CHOLESTEROL (test code = 2210) 174 MG/DL TRIGLYCERIDES (test code = 2232) 63 MG/DL HDL CHOLESTEROL (test code = 2220) 87 MG/DL CALC LDL CHOL (test code = 2237) 73 MG/DL RISK RATIO LDL/HDL (test cod e = 2238) 0.84 RATIO Delfino OrtaCOMPREHENSIVE METABOLIC [id number] 00:00:00* Test Item Value Reference Range Interpretation Comme nts GLUCOSE (test code = 2217) 80 MG/DL BUN (test code = 2208) 18 MG/DL CREATININE (test code = 2214) 1.06 MG/DL eGFR AMER. (test cod e = 11656) 67 ML/MIN/1.73 eGFR NON- AMER. (test code = 19466) 58 ML/MIN/1.73 CALC BUN/CREAT (test code = [...] 2219) 54 U/L Delfino Schumacher YouCBC W/AUTO [id number] 00:00:00* Test Item Value Reference Range Interpretation [...] ABS NUCLEATED RBCS (test cod e = 06639) 0.00 K/UL COMMENTS (test code = 1016) (NOTE) Delfino Schumacher AustinLIPID [id number] 00:00:00* Test Item Value Reference Range Interpretation Comme nts CHOLESTEROL (test code = 2210) 174 MG/DL TRIGLYCERIDES (test code = 2232) 63 MG/DL HDL CHOLESTEROL (test code = 2220) 87 MG/DL CALC LDL CHOL (test code = 2237) 73 MG/DL RISK RATIO LDL/HDL (test cod e = 2238) 0.84 RATIO Delfino OrtaCOMPREHENSIVE METABOLIC [id number] 00:00:00* Test Item Value Reference Range Interpretation Comme nts GLUCOSE (test code = 2217) 80 MG/DL BUN (test code = 2208) 18 MG/DL CREATININE (test code = 2214) 1.06 MG/DL eGFR AMER. (test cod e = 40568) 67 ML/MIN/1.73 eGFR NON- AMER. (test code = 33613) 58 ML/MIN/1.73 CALC BUN/CREAT (test code = [...] = 2219) 54 U/L Delfino OrtaCBC W/AUTO [id number] 00:00:00* Test Item Value Reference Range Interpretation [...] ABS NUCLEATED RBCS (test cod e = 99701) 0.00 K/UL COMMENTS (test code = 1016) (NOTE) Delfino OrtaLIPID [id number] 00:00:00* Test Item Value Reference Range Interpretation Comme nts CHOLESTEROL (test code = 2210) 174 MG/DL TRIGLYCERIDES (test code = 2232) 63 MG/DL HDL CHOLESTEROL (test code = 2220) 87 MG/DL CALC LDL CHOL (test code = 2237) 73 MG/DL RISK RATIO LDL/HDL (test cod e = 2238) 0.84 RATIO Delfino OrtaCOMPREHENSIVE METABOLIC [id number] 00:00:00* Test Item Value Reference Range Interpretation Comme nts GLUCOSE (test code = 2217) 80 MG/DL BUN (test code = 2208) 18 MG/DL CREATININE (test code = 2214) 1.06 MG/DL eGFR AMER. (test cod e = 52634) 67 ML/MIN/1.73 eGFR NON- AMER. (test code = 04301) 58 ML/MIN/1.73 CALC BUN/CREAT (test code = [...] = 2219) 54 U/L Delfino OrtaCBC W/AUTO [id number] 00:00:00* Test Item Value Reference Range Interpretation [...] ABS NUCLEATED RBCS (test cod e = 65351) 0.00 K/UL COMMENTS (test code = 1016) (NOTE) Delfino Schumacher AustinLIPID [id number] 00:00:00* Test Item Value Reference Range Interpretation Comme nts CHOLESTEROL (test code = 2210) 174 MG/DL TRIGLYCERIDES (test code = 2232) 63 MG/DL HDL CHOLESTEROL (test code = 2220) 87 MG/DL CALC LDL CHOL (test code = 2237) 73 MG/DL RISK RATIO LDL/HDL (test cod e = 2238) 0.84 RATIO Delfino OrtaCOMPREHENSIVE METABOLIC [id number] 00:00:00* Test Item Value Reference Range Interpretation Comme nts GLUCOSE (test code = 2217) 80 MG/DL BUN (test code = 2208) 18 MG/DL CREATININE (test code = 2214) 1.06 MG/DL eGFR AMER. (test cod e = 34476) 67 ML/MIN/1.73 eGFR NON- AMER. (test code = 22524) 58 ML/MIN/1.73 CALC BUN/CREAT (test code = [...] (test code = 2219) 54 U/L [facility] [id number] 00:00:00* Test Item Value Reference Range Interpretation [...] ABS NUCLEATED RBCS (test cod e = 34676) 0.00 K/UL COMMENTS (test code = 1016) (NOTE) Delfino AppiahID [id number] 00:00:00* Test Item Value Reference Range Interpretation Comme nts CHOLESTEROL (test code = 2210) 174 MG/DL TRIGLYCERIDES (test code = 2232) 63 MG/DL HDL CHOLESTEROL (test code = 2220) 87 MG/DL CALC LDL CHOL (test code = 2237) 73 MG/DL RISK RATIO LDL/HDL (test cod e = 2238) 0.84 RATIO Delfino OrtaCOMPREHENSIVE METABOLIC [id number] 00:00:00* Test Item Value Reference Range Interpretation Comme nts GLUCOSE (test code = 2217) 80 MG/DL BUN (test code = 2208) 18 MG/DL CREATININE (test code = 2214) 1.06 MG/DL eGFR AMER. (test cod e = 06979) 67 ML/MIN/1.73 eGFR NON- AMER. (test code = 47589) 58 ML/MIN/1.73 CALC BUN/CREAT (test code = [...] = 2219) 54 U/L Delfino OrtaCBC W/AUTO [id number] 00:00:00* Test Item Value Reference Range Interpretation [...] ABS NUCLEATED RBCS (test cod e = 27058) 0.00 K/UL COMMENTS (test code = 1016) (NOTE) Delfino Schumacher AustinLIPID [id number] 00:00:00* Test Item Value Reference Range Interpretation Comme nts CHOLESTEROL (test code = 2210) 174 MG/DL TRIGLYCERIDES (test code = 2232) 63 MG/DL HDL CHOLESTEROL (test code = 2220) 87 MG/DL CALC LDL CHOL (test code = 2237) 73 MG/DL RISK RATIO LDL/HDL (test cod e = 2238) 0.84 RATIO Delfino Schumacher YouCOMPREHENSIVE METABOLIC [id number] 00:00:00* Test Item Value Reference Range Interpretation Comme nts GLUCOSE (test code = 2217) 80 MG/DL BUN (test code = 2208) 18 MG/DL CREATININE (test code = 2214) 1.06 MG/DL eGFR AMER. (test cod e = 27719) 67 ML/MIN/1.73 eGFR NON- AMER. (test code = 90324) 58 ML/MIN/1.73 CALC BUN/CREAT (test code = [...] code = 2219) 54 U/L Delfino Endy [facility] [id number] 00:00:00* Test Item Value Reference Range Interpretation [...] ABS NUCLEATED RBCS (test cod e = 24133) 0.00 K/UL COMMENTS (test code = 1016) (NOTE) Delfino OrtaLIPID [id number] 00:00:00* Test Item Value Reference Range Interpretation Comme nts CHOLESTEROL (test code = 2210) 174 MG/DL TRIGLYCERIDES (test code = 2232) 63 MG/DL HDL CHOLESTEROL (test code = 2220) 87 MG/DL CALC LDL CHOL (test code = 2237) 73 MG/DL RISK RATIO LDL/HDL (test cod e = 2238) 0.84 RATIO Delfino OrtaCOMPREHENSIVE METABOLIC [id number] 00:00:00* Test Item Value Reference Range Interpretation Comme nts GLUCOSE (test code = 2217) 80 MG/DL BUN (test code = 2208) 18 MG/DL CREATININE (test code = 2214) 1.06 MG/DL eGFR AMER. (test cod e = 11394) 67 ML/MIN/1.73 eGFR NON- AMER. (test code = 36053) 58 ML/MIN/1.73 CALC BUN/CREAT (test code = [...] = 2219) 54 U/L Delfino OrtaCBC W/AUTO [id number] 00:00:00* Test Item Value Reference Range Interpretation [...] ABS NUCLEATED RBCS (test cod e = 27453) 0.00 K/UL COMMENTS (test code = 1016) (NOTE) Delfino Schumacher AustinLIPID [id number] 00:00:00* Test Item Value Reference Range Interpretation Comme nts CHOLESTEROL (test code = 2210) 174 MG/DL TRIGLYCERIDES (test code = 2232) 63 MG/DL HDL CHOLESTEROL (test code = 2220) 87 MG/DL CALC LDL CHOL (test code = 2237) 73 MG/DL RISK RATIO LDL/HDL (test cod e = 2238) 0.84 RATIO Delfino Schumacher AustinCOMPREHENSIVE METABOLIC [id number] 00:00:00* Test Item Value Reference Range Interpretation Comme nts GLUCOSE (test code = 2217) 80 MG/DL BUN (test code = 2208) 18 MG/DL CREATININE (test code = 2214) 1.06 MG/DL eGFR AMER. (test cod e = 85962) 67 ML/MIN/1.73 eGFR NON- AMER. (test code = 35201) 58 ML/MIN/1.73 CALC BUN/CREAT (test code = [...] code = 2219) 54 U/L Delfino Schumacher [facility] W/AUTO [id number] 00:00:00* Test Item Value Reference Range Interpretation [...] ABS NUCLEATED RBCS (test cod e = 95139) 0.00 K/UL COMMENTS (test code = 1016) (NOTE) Delfino OrtaLIPID [id number] 00:00:00* Test Item Value Reference Range Interpretation Comme nts CHOLESTEROL (test code = 2210) 174 MG/DL TRIGLYCERIDES (test code = 2232) 63 MG/DL HDL CHOLESTEROL (test code = 2220) 87 MG/DL CALC LDL CHOL (test code = 2237) 73 MG/DL RISK RATIO LDL/HDL (test cod e = 2238) 0.84 RATIO Delfino OrtaCOMPREHENSIVE METABOLIC [id number] 00:00:00* Test Item Value Reference Range Interpretation Comme nts GLUCOSE (test code = 2217) 80 MG/DL BUN (test code = 2208) 18 MG/DL CREATININE (test code = 2214) 1.06 MG/DL eGFR AMER. (test cod e = 01541) 67 ML/MIN/1.73 eGFR NON- AMER. (test code = 65719) 58 ML/MIN/1.73 CALC BUN/CREAT (test code = [...] = 2219) 54 U/L Delfino OrtaCBC W/AUTO [id number] 00:00:00* Test Item Value Reference Range Interpretation [...] ABS NUCLEATED RBCS (test cod e = 71136) 0.00 K/UL COMMENTS (test code = 1016) (NOTE) Delfino OrtaLIPID [id number] 00:00:00* Test Item Value Reference Range Interpretation Comme nts CHOLESTEROL (test code = 2210) 174 MG/DL TRIGLYCERIDES (test code = 2232) 63 MG/DL HDL CHOLESTEROL (test code = 2220) 87 MG/DL CALC LDL CHOL (test code = 2237) 73 MG/DL RISK RATIO LDL/HDL (test cod e = 2238) 0.84 RATIO Delfino Schumacher YouCOMPREHENSIVE METABOLIC [id number] 00:00:00* Test Item Value Reference Range Interpretation Comme nts GLUCOSE (test code = 2217) 80 MG/DL BUN (test code = 2208) 18 MG/DL CREATININE (test code = 2214) 1.06 MG/DL eGFR AMER. (test cod e = 37842) 67 ML/MIN/1.73 eGFR NON- AMER. (test code = 63320) 58 ML/MIN/1.73 CALC BUN/CREAT (test code = [...] code = 2219) 54 U/L Delfino Schumacher [facility] W/AUTO [id number] 00:00:00* Test Item Value Reference Range Interpretation [...] ABS NUCLEATED RBCS (test cod e = 74995) 0.00 K/UL COMMENTS (test code = 1016) (NOTE) Delfino Schumacher AustinLIPID [id number] 00:00:00* Test Item Value Reference Range Interpretation Comme nts CHOLESTEROL (test code = 2210) 174 MG/DL TRIGLYCERIDES (test code = 2232) 63 MG/DL HDL CHOLESTEROL (test code = 2220) 87 MG/DL CALC LDL CHOL (test code = 2237) 73 MG/DL RISK RATIO LDL/HDL (test cod e = 2238) 0.84 RATIO Delfino OrtaCOMPREHENSIVE METABOLIC [id number] 00:00:00* Test Item Value Reference Range Interpretation Comme nts GLUCOSE (test code = 2217) 80 MG/DL BUN (test code = 2208) 18 MG/DL CREATININE (test code = 2214) 1.06 MG/DL eGFR AMER. (test cod e = 16434) 67 ML/MIN/1.73 eGFR NON- AMER. (test code = 63405) 58 ML/MIN/1.73 CALC BUN/CREAT (test code = [...] code = 2219) 54 U/L Delfino F AustinCBC W/AUTO [id number] 00:00:00* Test Item Value Reference Range Interpretation [...] ABS NUCLEATED RBCS (test cod e = 54091) 0.00 K/UL COMMENTS (test code = 1016) (NOTE) Delfino OrtaLIPID [id number] 00:00:00* Test Item Value Reference Range Interpretation Comme nts CHOLESTEROL (test code = 2210) 174 MG/DL TRIGLYCERIDES (test code = 2232) 63 MG/DL HDL CHOLESTEROL (test code = 2220) 87 MG/DL CALC LDL CHOL (test code = 2237) 73 MG/DL RISK RATIO LDL/HDL (test cod e = 2238) 0.84 RATIO Delfino OrtaCOMPREHENSIVE METABOLIC [id number] 00:00:00* Test Item Value Reference Range Interpretation Comme nts GLUCOSE (test code = 2217) 80 MG/DL BUN (test code = 2208) 18 MG/DL CREATININE (test code = 2214) 1.06 MG/DL eGFR AMER. (test cod e = 74215) 67 ML/MIN/1.73 eGFR NON- AMER. (test code = 35398) 58 ML/MIN/1.73 CALC BUN/CREAT (test code = [...] code = 2219) 54 U/L Delfino Schumacher [facility] W/AUTO [id number] 00:00:00* Test Item Value Reference Range Interpretation [...] ABS NUCLEATED RBCS (test cod e = 50514) 0.00 K/UL COMMENTS (test code = 1016) (NOTE) Delfino OrtaLIPID [id number] 00:00:00* Test Item Value Reference Range Interpretation Comme nts CHOLESTEROL (test code = 2210) 174 MG/DL TRIGLYCERIDES (test code = 2232) 63 MG/DL HDL CHOLESTEROL (test code = 2220) 87 MG/DL CALC LDL CHOL (test code = 2237) 73 MG/DL RISK RATIO LDL/HDL (test cod e = 2238) 0.84 RATIO Delfino Schumacher [id number] (COVID-19) by RT-PCR (HIGH RISK)2020-01-21 00:00:00* Test Item Value Reference Range Interpretation Comme nts SARS-CoV-2 INTERPRETATION (t est code = 70501) NEGATIVE SOURCE (test code = 01757) NOT SPECIFIED Delfino Schumacher [id number] (COVID-19) by RT-PCR (HIGH RISK)2020-01-21 00:00:00* Test Item Value Reference Range Interpretation Comme nts SARS-CoV-2 INTERPRETATION (t est code = 08783) NEGATIVE SOURCE (test code = 16883) NOT SPECIFIED Delfino Schumacher [id number] (COVID-19) by RT-PCR (HIGH RISK)2020-01-21 00:00:00* Test Item Value Reference Range Interpretation Comme nts SARS-CoV-2 INTERPRETATION (t est code = 83755) NEGATIVE SOURCE (test code = 14476) NOT SPECIFIED SARS-CoV-2 (COVID-19) by RT-PCR (HIGH RISK)2020-01-21 00:00:00* Test Item Value Reference Range Interpretation Comme nts SARS-CoV-2 INTERPRETATION (t est code = 64026) NEGATIVE SOURCE (test code = 43842) NOT SPECIFIED Delfino Schumacher VgcpwcRGSY-JiO-2 (COVID-19) by RT-PCR (HIGH RISK)2020-01-21 00:00:00* Test Item Value Reference Range Interpretation Comme nts SARS-CoV-2 INTERPRETATION (t est code = 86965) NEGATIVE SOURCE (test code = 90647) NOT SPECIFIED SARS-CoV-2 (COVID-19) by RT-PCR (HIGH RISK)2020-01-21 00:00:00* Test Item Value Reference Range Interpretation Comme nts SARS-CoV-2 INTERPRETATION (t est code = 97013) NEGATIVE SOURCE (test code = 05162) NOT SPECIFIED Delfino Schumacher UozqcbKSYG-ZyO-2 (COVID-19) by RT-PCR (HIGH RISK)2020-01-21 00:00:00* Test Item Value Reference Range Interpretation Comme nts SARS-CoV-2 INTERPRETATION (t est code = 37828) NEGATIVE SOURCE (test code = 62969) NOT SPECIFIED SARS-CoV-2 (COVID-19) by RT-PCR (HIGH RISK)2020-01-21 00:00:00* Test Item Value Reference Range Interpretation Comme nts SARS-CoV-2 INTERPRETATION (t est code = 04620) NEGATIVE SOURCE (test code = 98984) NOT SPECIFIED Delfino Schumacher AlwleuLRMV-MiI-2 (COVID-19) by RT-PCR (HIGH RISK)2020-01-21 00:00:00* Test Item Value Reference Range Interpretation Comme nts SARS-CoV-2 INTERPRETATION (t est code = 08252) NEGATIVE SOURCE (test code = 87275) NOT SPECIFIED SARS-CoV-2 (COVID-19) by RT-PCR (HIGH RISK)2020-01-21 00:00:00* Test Item Value Reference Range Interpretation Comme nts SARS-CoV-2 INTERPRETATION (t est code = 22390) NEGATIVE SOURCE (test code = 41563) NOT SPECIFIED Delfino Schumacher WlsmkjIMCH-CwU-3 (COVID-19) by RT-PCR (HIGH RISK)2020-01-21 00:00:00* Test Item Value Reference Range Interpretation Comme nts SARS-CoV-2 INTERPRETATION (t est code = 09150) NEGATIVE SOURCE (test code = 53972) NOT SPECIFIED Delfino Schumacher XfgwppFFOV-FxL-3 (COVID-19) by RT-PCR (HIGH RISK)2020-01-21 00:00:00* Test Item Value Reference Range Interpretation Comme nts SARS-CoV-2 INTERPRETATION (t est code = 92814) NEGATIVE SOURCE (test code = 45316) NOT SPECIFIED Delfino Schumacher AvhqinIFZG-YkH-2 (COVID-19) by RT-PCR (HIGH RISK)2020-01-21 00:00:00* Test Item Value Reference Range Interpretation Comme nts SARS-CoV-2 INTERPRETATION (t est code = 40582) NEGATIVE SOURCE (test code = 78937) NOT SPECIFIED Delfino F DjjgerONKG-OrN-0 (COVID-19) by RT-PCR (HIGH RISK)2020-01-21 00:00:00* Test Item Value Reference Range Interpretation Comme nts SARS-CoV-2 INTERPRETATION (t est code = 76204) NEGATIVE SOURCE (test code = 38844) NOT SPECIFIED Delfino F KdrgvvEBSC-HiY-0 (COVID-19) by RT-PCR (HIGH RISK)2020-01-21 00:00:00* Test Item Value Reference Range Interpretation Comme nts SARS-CoV-2 INTERPRETATION (t est code = 48286) NEGATIVE SOURCE (test code = 62772) NOT SPECIFIED Delfino Schumacher NltbmaLVST-RkU-8 (COVID-19) by RT-PCR (HIGH RISK)2020-01-21 00:00:00* Test Item Value Reference Range Interpretation Comme nts SARS-CoV-2 INTERPRETATION (t est code = 25720) NEGATIVE SOURCE (test code = 07245) NOT SPECIFIED Delfino Schumacher GohrriWYOI-SvE-7 (COVID-19) by RT-PCR (HIGH RISK)2020-01-21 00:00:00* Test Item Value Reference Range Interpretation Comme nts SARS-CoV-2 INTERPRETATION (t est code = 91344) NEGATIVE SOURCE (test code = 96297) NOT SPECIFIED Delfino F DttztlTTXO-BrW-6 (COVID-19) by RT-PCR (HIGH RISK)2020-01-21 00:00:00* Test Item Value Reference Range Interpretation Comme nts SARS-CoV-2 INTERPRETATION (t est code = 90962) NEGATIVE SOURCE (test code = 97090) NOT SPECIFIED Delfino F KhevljTNHC-XqV-1 (COVID-19) by RT-PCR (HIGH RISK)2020-01-21 00:00:00* Test Item Value Reference Range Interpretation Comme nts SARS-CoV-2 INTERPRETATION (t est code = 46436) NEGATIVE SOURCE (test code = 39227) NOT SPECIFIED Delfino F RoyyppZDZQ-WgR-0 (COVID-19) by RT-PCR (HIGH RISK)2020-01-21 00:00:00* Test Item Value Reference Range Interpretation Comme nts SARS-CoV-2 INTERPRETATION (t est code = 08692) NEGATIVE SOURCE (test code = 77318) NOT SPECIFIED Delfino F HqlouaPUIZ-KnY-1 (COVID-19) by RT-PCR (HIGH RISK)2020-01-21 00:00:00* Test Item Value Reference Range Interpretation Comme nts SARS-CoV-2 INTERPRETATION (t est code = 23772) NEGATIVE SOURCE (test code = 00695) NOT SPECIFIED Delfino F LwlqisFAQV-XyB-6 (COVID-19) by RT-PCR (HIGH RISK)2020-01-21 00:00:00* Test Item Value Reference Range Interpretation Comme nts SARS-CoV-2 INTERPRETATION (t est code = 14798) NEGATIVE SOURCE (test code = 31514) NOT SPECIFIED Delfino F SwbhlgTWQF-MlX-2 (COVID-19) by RT-PCR (HIGH RISK)2020-01-21 00:00:00* Test Item Value Reference Range Interpretation Comme nts SARS-CoV-2 INTERPRETATION (t est code = 26553) NEGATIVE SOURCE (test code = 07433) NOT SPECIFIED Delfino F ObfiouLDFU-MdR-4 (COVID-19) by RT-PCR (HIGH RISK)2020-01-21 00:00:00* Test Item Value Reference Range Interpretation Comme nts SARS-CoV-2 INTERPRETATION (t est code = 82277) NEGATIVE SOURCE (test code = 86271) NOT SPECIFIED Delfino F BldaclPZAQ-IqK-3 (COVID-19) by RT-PCR (HIGH RISK)2020-01-21 00:00:00* Test Item Value Reference Range Interpretation Comme nts SARS-CoV-2 INTERPRETATION (t est code = 58274) NEGATIVE SOURCE (test code = 63414) NOT SPECIFIED Delfino F MyrexnSUQJ-LkB-7 (COVID-19) by RT-PCR (HIGH RISK)2020-01-21 00:00:00* Test Item Value Reference Range Interpretation Comme nts SARS-CoV-2 INTERPRETATION (t est code = 02756) NEGATIVE SOURCE (test code = 33300) NOT SPECIFIED Delfino OrtaSARS-CoV-2 (COVID-19) by RT-PCR (HIGH RISK)2020-01-21 00:00:00* Test Item Value Reference Range Interpretation Comme nts SARS-CoV-2 INTERPRETATION (t est code = 16384) NEGATIVE SOURCE (test code = 11686) NOT SPECIFIED Delfino OrtaSARS-CoV-2 (COVID-19) by RT-PCR (HIGH RISK)2020-01-21 00:00:00* Test Item Value Reference Range Interpretation Comme nts SARS-CoV-2 INTERPRETATION (t est code = 88302) NEGATIVE SOURCE (test code = 17028) NOT SPECIFIED Delfino OrtaCBC W/AUTO [id number] 00:00:00* Test Item Value Reference Range Interpretation [...] = 1015) 186 K/UL Delfino OrtaCOMPREHENSIVE METABOLIC [id number] 00:00:00* Test Item Value Reference Range Interpretation Comme nts GLUCOSE (test code = 2217) 86 MG/DL BUN (test code = 2208) 16 MG/DL CREATININE (test code = 2214) 0.90 MG/DL eGFR AMER. (test cod e = 85803) 83 ML/MIN/1.73 eGFR NON- AMER. (test code = 71381) 71 ML/MIN/1.73 CALC BUN/CREAT (test code = [...] 2219) 29 U/L Delfino Endy YouCBC W/AUTO [id number] 00:00:00* Test Item Value Reference Range Interpretation [...] = 1015) 186 K/UL Delfino OrtaCOMPREHENSIVE METABOLIC [id number] 00:00:00* Test Item Value Reference Range Interpretation Comme nts GLUCOSE (test code = 2217) 86 MG/DL BUN (test code = 2208) 16 MG/DL CREATININE (test code = 2214) 0.90 MG/DL eGFR AMER. (test cod e = 91429) 83 ML/MIN/1.73 eGFR NON- AMER. (test code = 25848) 71 ML/MIN/1.73 CALC BUN/CREAT (test code = [...] code = 2219) 29 U/L COMPREHENSIVE METABOLIC [id number] 00:00:00* Test Item Value Reference Range Interpretation Comme nts GLUCOSE (test code = 2217) 86 MG/DL BUN (test code = 2208) 16 MG/DL CREATININE (test code = 2214) 0.90 MG/DL eGFR AMER. (test cod e = 68901) 83 ML/MIN/1.73 eGFR NON- AMER. (test code = 48485) 71 ML/MIN/1.73 CALC BUN/CREAT (test code = [...] (test code = 2219) 29 U/L Delfino OrtaMeg W/AUTO [id number] 00:00:00* Test Item Value Reference Range Interpretation [...] code = 1015) 186 K/UL CBC W/AUTO [id number] 00:00:00* Test Item Value Reference Range Interpretation [...] 1015) 186 K/UL Delfino F AustinCOMPREHENSIVE METABOLIC [id number] 00:00:00* Test Item Value Reference Range Interpretation Comme nts GLUCOSE (test code = 2217) 86 MG/DL BUN (test code = 2208) 16 MG/DL CREATININE (test code = 2214) 0.90 MG/DL eGFR AMER. (test cod e = 01563) 83 ML/MIN/1.73 eGFR NON- AMER. (test code = 03559) 71 ML/MIN/1.73 CALC BUN/CREAT (test code = [...] code = 2219) 29 U/L CBC W/AUTO [id number] 00:00:00* Test Item Value Reference Range Interpretation [...] 1015) 186 K/UL Delfino Schumacher AustinCOMPREHENSIVE METABOLIC [id number] 00:00:00* Test Item Value Reference Range Interpretation Comme nts GLUCOSE (test code = 2217) 86 MG/DL BUN (test code = 2208) 16 MG/DL CREATININE (test code = 2214) 0.90 MG/DL eGFR AMER. (test cod e = 64708) 83 ML/MIN/1.73 eGFR NON- AMER. (test code = 57702) 71 ML/MIN/1.73 CALC BUN/CREAT (test code = [...] 2219) 29 U/L Delfino Schumacher YouCBC W/AUTO [id number] 00:00:00* Test Item Value Reference Range Interpretation [...] code = 1015) 186 K/UL CBC W/AUTO [id number] 00:00:00* Test Item Value Reference Range Interpretation [...] 1015) 186 K/UL Delfino Schumacher AustinCOMPREHENSIVE METABOLIC [id number] 00:00:00* Test Item Value Reference Range Interpretation Comme nts GLUCOSE (test code = 2217) 86 MG/DL BUN (test code = 2208) 16 MG/DL CREATININE (test code = 2214) 0.90 MG/DL eGFR AMER. (test cod e = 66874) 83 ML/MIN/1.73 eGFR NON- AMER. (test code = 16830) 71 ML/MIN/1.73 CALC BUN/CREAT (test code = [...] 2219) 29 U/L Delfino Schumacher AustinCOMPREHENSIVE METABOLIC [id number] 00:00:00* Test Item Value Reference Range Interpretation Comme nts GLUCOSE (test code = 2217) 86 MG/DL BUN (test code = 2208) 16 MG/DL CREATININE (test code = 2214) 0.90 MG/DL eGFR AMER. (test cod e = 77076) 83 ML/MIN/1.73 eGFR NON- AMER. (test code = 06800) 71 ML/MIN/1.73 CALC BUN/CREAT (test code = [...] code = 2219) 29 U/L CBC W/AUTO [id number] 00:00:00* Test Item Value Reference Range Interpretation [...] code = 1015) 186 K/UL CBC W/AUTO [id number] 00:00:00* Test Item Value Reference Range Interpretation [...] = 1015) 186 K/UL Delfino OrtaCOMPREHENSIVE METABOLIC [id number] 00:00:00* Test Item Value Reference Range Interpretation Comme nts GLUCOSE (test code = 2217) 86 MG/DL BUN (test code = 2208) 16 MG/DL CREATININE (test code = 2214) 0.90 MG/DL eGFR AMER. (test cod e = 31945) 83 ML/MIN/1.73 eGFR NON- AMER. (test code = 91491) 71 ML/MIN/1.73 CALC BUN/CREAT (test code = [...] code = 2219) 29 U/L CBC W/AUTO [id number] 00:00:00* Test Item Value Reference Range Interpretation [...] code = 1015) 186 K/UL COMPREHENSIVE METABOLIC [id number] 00:00:00* Test Item Value Reference Range Interpretation Comme nts GLUCOSE (test code = 2217) 86 MG/DL BUN (test code = 2208) 16 MG/DL CREATININE (test code = 2214) 0.90 MG/DL eGFR AMER. (test cod e = 19674) 83 ML/MIN/1.73 eGFR NON- AMER. (test code = 99977) 71 ML/MIN/1.73 CALC BUN/CREAT (test code = [...] (test code = 2219) 29 U/[facility] [id number] 00:00:00* Test Item Value Reference Range Interpretation [...] 1015) 186 K/UL Delfino F YouCOMPREHENSIVE METABOLIC [id number] 00:00:00* Test Item Value Reference Range Interpretation Comme nts GLUCOSE (test code = 2217) 86 MG/DL BUN (test code = 2208) 16 MG/DL CREATININE (test code = 2214) 0.90 MG/DL eGFR AMER. (test cod e = 55705) 83 ML/MIN/1.73 eGFR NON- AMER. (test code = 71890) 71 ML/MIN/1.73 CALC BUN/CREAT (test code = [...] 2219) 29 U/L Delfino F YouCBC W/AUTO [id number] 00:00:00* Test Item Value Reference Range Interpretation [...] 1015) 186 K/UL Delfino Schumacher YouCOMPREHENSIVE METABOLIC [id number] 00:00:00* Test Item Value Reference Range Interpretation Comme nts GLUCOSE (test code = 2217) 86 MG/DL BUN (test code = 2208) 16 MG/DL CREATININE (test code = 2214) 0.90 MG/DL eGFR AMER. (test cod e = 43855) 83 ML/MIN/1.73 eGFR NON- AMER. (test code = 28377) 71 ML/MIN/1.73 CALC BUN/CREAT (test code = [...] 2219) 29 U/L Delfino Schumacher YouCBC W/AUTO [id number] 00:00:00* Test Item Value Reference Range Interpretation [...] = 1015) 186 K/UL Delfino OrtaCOMPREHENSIVE METABOLIC [id number] 00:00:00* Test Item Value Reference Range Interpretation Comme nts GLUCOSE (test code = 2217) 86 MG/DL BUN (test code = 2208) 16 MG/DL CREATININE (test code = 2214) 0.90 MG/DL eGFR AMER. (test cod e = 25077) 83 ML/MIN/1.73 eGFR NON- AMER. (test code = 35522) 71 ML/MIN/1.73 CALC BUN/CREAT (test code = [...] = 2219) 29 U/L Delfino OrtaCBC W/AUTO [id number] 00:00:00* Test Item Value Reference Range Interpretation [...] = 1015) 186 K/UL Delfino OrtaCOMPREHENSIVE METABOLIC [id number] 00:00:00* Test Item Value Reference Range Interpretation Comme nts GLUCOSE (test code = 2217) 86 MG/DL BUN (test code = 2208) 16 MG/DL CREATININE (test code = 2214) 0.90 MG/DL eGFR AMER. (test cod e = 42004) 83 ML/MIN/1.73 eGFR NON- AMER. (test code = 29967) 71 ML/MIN/1.73 CALC BUN/CREAT (test code = [...] = 2219) 29 U/L Delfino OrtaCBC W/AUTO [id number] 00:00:00* Test Item Value Reference Range Interpretation [...] = 1015) 186 K/UL Delfino OrtaCOMPREHENSIVE METABOLIC [id number] 00:00:00* Test Item Value Reference Range Interpretation Comme nts GLUCOSE (test code = 2217) 86 MG/DL BUN (test code = 2208) 16 MG/DL CREATININE (test code = 2214) 0.90 MG/DL eGFR AMER. (test cod e = 65343) 83 ML/MIN/1.73 eGFR NON- AMER. (test code = 23821) 71 ML/MIN/1.73 CALC BUN/CREAT (test code = [...] = 2219) 29 U/L Delfino OrtaCBC W/AUTO [id number] 00:00:00* Test Item Value Reference Range Interpretation [...] = 1015) 186 K/UL Delfino OrtaCOMPREHENSIVE METABOLIC [id number] 00:00:00* Test Item Value Reference Range Interpretation Comme nts GLUCOSE (test code = 2217) 86 MG/DL BUN (test code = 2208) 16 MG/DL CREATININE (test code = 2214) 0.90 MG/DL eGFR AMER. (test cod e = 13098) 83 ML/MIN/1.73 eGFR NON- AMER. (test code = 28592) 71 ML/MIN/1.73 CALC BUN/CREAT (test code = [...] (test code = 2219) 29 U/L Delfino CardenasC W/AUTO [id number] 00:00:00* Test Item Value Reference Range Interpretation [...] = 1015) 186 K/UL Delfino OrtaCOMPREHENSIVE METABOLIC [id number] 00:00:00* Test Item Value Reference Range Interpretation Comme nts GLUCOSE (test code = 2217) 86 MG/DL BUN (test code = 2208) 16 MG/DL CREATININE (test code = 2214) 0.90 MG/DL eGFR AMER. (test cod e = 90100) 83 ML/MIN/1.73 eGFR NON- AMER. (test code = 48724) 71 ML/MIN/1.73 CALC BUN/CREAT (test code = [...] = 2219) 29 U/L Delfino OrtaCBC W/AUTO [id number] 00:00:00* Test Item Value Reference Range Interpretation [...] = 1015) 186 K/UL Delfino OrtaCOMPREHENSIVE METABOLIC [id number] 00:00:00* Test Item Value Reference Range Interpretation Comme nts GLUCOSE (test code = 2217) 86 MG/DL BUN (test code = 2208) 16 MG/DL CREATININE (test code = 2214) 0.90 MG/DL eGFR AMER. (test cod e = 19176) 83 ML/MIN/1.73 eGFR NON- AMER. (test code = 27503) 71 ML/MIN/1.73 CALC BUN/CREAT (test code = [...] = 2219) 29 U/L Delfino OrtaCBC W/AUTO [id number] 00:00:00* Test Item Value Reference Range Interpretation [...] 1015) 186 K/UL Delfino Schumacher YouCOMPREHENSIVE METABOLIC [id number] 00:00:00* Test Item Value Reference Range Interpretation Comme nts GLUCOSE (test code = 2217) 86 MG/DL BUN (test code = 2208) 16 MG/DL CREATININE (test code = 2214) 0.90 MG/DL eGFR AMER. (test cod e = 54889) 83 ML/MIN/1.73 eGFR NON- AMER. (test code = 14196) 71 ML/MIN/1.73 CALC BUN/CREAT (test code = [...] = 2219) 29 U/L Delfino OrtaCBC W/AUTO [id number] 00:00:00* Test Item Value Reference Range Interpretation [...] = 1015) 186 K/UL Delfino OrtaCOMPREHENSIVE METABOLIC [id number] 00:00:00* Test Item Value Reference Range Interpretation Comme nts GLUCOSE (test code = 2217) 86 MG/DL BUN (test code = 2208) 16 MG/DL CREATININE (test code = 2214) 0.90 MG/DL eGFR AMER. (test cod e = 32001) 83 ML/MIN/1.73 eGFR NON- AMER. (test code = 65915) 71 ML/MIN/1.73 CALC BUN/CREAT (test code = [...] = 2219) 29 U/L Delfino OrtaCBC W/AUTO [id number] 00:00:00* Test Item Value Reference Range Interpretation [...] = 1015) 186 K/UL Delfino OrtaCOMPREHENSIVE METABOLIC [id number] 00:00:00* Test Item Value Reference Range Interpretation Comme nts GLUCOSE (test code = 2217) 86 MG/DL BUN (test code = 2208) 16 MG/DL CREATININE (test code = 2214) 0.90 MG/DL eGFR AMER. (test cod e = 13469) 83 ML/MIN/1.73 eGFR NON- AMER. (test code = 09715) 71 ML/MIN/1.73 CALC BUN/CREAT (test code = [...] = 2219) 29 U/L Delfino OrtaCBC W/AUTO [id number] 00:00:00* Test Item Value Reference Range Interpretation [...] = 1015) 186 K/UL Delfino OrtaCOMPREHENSIVE METABOLIC [id number] 00:00:00* Test Item Value Reference Range Interpretation Comme nts GLUCOSE (test code = 2217) 86 MG/DL BUN (test code = 2208) 16 MG/DL CREATININE (test code = 2214) 0.90 MG/DL eGFR AMER. (test cod e = 11594) 83 ML/MIN/1.73 eGFR NON- AMER. (test code = 86607) 71 ML/MIN/1.73 CALC BUN/CREAT (test code = [...] = 2219) 29 U/L Delfino OrtaCBC W/AUTO [id number] 00:00:00* Test Item Value Reference Range Interpretation [...] = 1015) 186 K/UL Delfino OrtaCOMPREHENSIVE METABOLIC [id number] 00:00:00* Test Item Value Reference Range Interpretation Comme nts GLUCOSE (test code = 2217) 86 MG/DL BUN (test code = 2208) 16 MG/DL CREATININE (test code = 2214) 0.90 MG/DL eGFR AMER. (test cod e = 04640) 83 ML/MIN/1.73 eGFR NON- AMER. (test code = 80947) 71 ML/MIN/1.73 CALC BUN/CREAT (test code = [...] 2219) 29 U/L Delfino Schumacher YouCBC W/AUTO [id number] 00:00:00* Test Item Value Reference Range Interpretation [...] 1015) 186 K/UL Delfino Schumacher YouCOMPREHENSIVE METABOLIC [id number] 00:00:00* Test Item Value Reference Range Interpretation Comme nts GLUCOSE (test code = 2217) 86 MG/DL BUN (test code = 2208) 16 MG/DL CREATININE (test code = 2214) 0.90 MG/DL eGFR AMER. (test cod e = 07096) 83 ML/MIN/1.73 eGFR NON- AMER. (test code = 59818) 71 ML/MIN/1.73 CALC BUN/CREAT (test code = [...] 2219) 29 U/L Delfino Schumacher YouCBC W/AUTO [id number] 00:00:00* Test Item Value Reference Range Interpretation [...] 1015) 186 K/UL Delfino Schumacher YouCOMPREHENSIVE METABOLIC [id number] 00:00:00* Test Item Value Reference Range Interpretation Comme nts GLUCOSE (test code = 2217) 86 MG/DL BUN (test code = 2208) 16 MG/DL CREATININE (test code = 2214) 0.90 MG/DL eGFR AMER. (test cod e = 39922) 83 ML/MIN/1.73 eGFR NON- AMER. (test code = 97046) 71 ML/MIN/1.73 CALC BUN/CREAT (test code = [...] = 2219) 29 U/L Delfino OrtaCBC W/AUTO [id number] 00:00:00* Test Item Value Reference Range Interpretation [...] = 1015) 186 K/UL Delfino OrtaCOMPREHENSIVE METABOLIC [id number] 00:00:00* Test Item Value Reference Range Interpretation Comme nts GLUCOSE (test code = 2217) 86 MG/DL BUN (test code = 2208) 16 MG/DL CREATININE (test code = 2214) 0.90 MG/DL eGFR AMER. (test cod e = 88102) 83 ML/MIN/1.73 eGFR NON- AMER. (test code = 55844) 71 ML/MIN/1.73 CALC BUN/CREAT (test code = [...] 2219) 29 U/L Delfino Schumacher YouCBC W/AUTO [id number] 00:00:00* Test Item Value Reference Range Interpretation [...] code = 1015) 186 K/UL Delfino Schumacher oYuCOMPREHENSIVE METABOLIC [id number] 00:00:00* Test Item Value Reference Range Interpretation Comme nts GLUCOSE (test code = 2217) 86 MG/DL BUN (test code = 2208) 16 MG/DL CREATININE (test code = 2214) 0.90 MG/DL eGFR AMER. (test cod e = 95330) 83 ML/MIN/1.73 eGFR NON- AMER. (test code = 21687) 71 ML/MIN/1.73 CALC BUN/CREAT (test code = [...] = 2219) 29 U/L Delfino OrtaCBC W/AUTO [id number] 00:00:00* Test Item Value Reference Range Interpretation [...] 1015) 186 K/UL Delfino Schumacher YouCOMPREHENSIVE METABOLIC [id number] 00:00:00* Test Item Value Reference Range Interpretation Comme nts GLUCOSE (test code = 2217) 86 MG/DL BUN (test code = 2208) 16 MG/DL CREATININE (test code = 2214) 0.90 MG/DL eGFR AMER. (test cod e = 38056) 83 ML/MIN/1.73 eGFR NON- AMER. (test code = 34650) 71 ML/MIN/1.73 CALC BUN/CREAT (test code = [...] = 2219) 29 U/L Delfino OrtaCOMPREHENSIVE METABOLIC [id number] 00:00:00* Test Item Value Reference Range Interpretation Comme nts GLUCOSE (test code = 2217) 86 MG/DL BUN (test code = 2208) 16 MG/DL CREATININE (test code = 2214) 0.90 MG/DL eGFR AMER. (test cod e = 42213) 83 ML/MIN/1.73 eGFR NON- AMER. (test code = 15503) 71 ML/MIN/1.73 CALC BUN/CREAT (test code = [...] 2219) 29 U/L Delfino Endy YouCBC W/AUTO [id number] 00:00:00* Test Item Value Reference Range Interpretation [...] (test code = 1016) (NOTE) Delfino Schumacher [facility] W/AUTO [id number] 00:00:00* Test Item Value Reference Range Interpretation [...] (test code = 1016) (NOTE) [facility]elfino [facility]acher [facility] [id number] 00:00:00* Test Item Value Reference Range Interpretation [...] (test code = 1016) (NOTE) CBC W/AUTO [id number] 00:00:00* Test Item Value Reference Range Interpretation [...] code = 1016) (NOTE) Delfino OrtaCBC W/AUTO [id number] 00:00:00* Test Item Value Reference Range Interpretation [...] (test code = 1016) (NOTE) CBC W/AUTO [id number] 00:00:00* Test Item Value Reference Range Interpretation [...] code = 1016) (NOTE) Delfino OrtaCBC W/AUTO [id number] 00:00:00* Test Item Value Reference Range Interpretation [...] (test code = 1016) (NOTE) CBC W/AUTO [id number] 00:00:00* Test Item Value Reference Range Interpretation [...] code = 1016) (NOTE) Delfino OrtaCBC W/AUTO [id number] 00:00:00* Test Item Value Reference Range Interpretation [...] (test code = 1016) (NOTE) CBC W/AUTO [id number] 00:00:00* Test Item Value Reference Range Interpretation [...] (test code = 1016) (NOTE) Delfino Schumacher [facility] W/AUTO [id number] 00:00:00* Test Item Value Reference Range Interpretation [...] (test code = 1016) (NOTE) Delfino Schumacher [facility] W/AUTO [id number] 00:00:00* Test Item Value Reference Range Interpretation [...] code = 1016) (NOTE) Delfino OrtaCBC W/AUTO [id number] 00:00:00* Test Item Value Reference Range Interpretation [...] code = 1016) (NOTE) Delfino OrtaC W/AUTO [id number] 00:00:00* Test Item Value Reference Range Interpretation [...] code = 1016) (NOTE) Delfino OrtaCBC W/AUTO [id number] 00:00:00* Test Item Value Reference Range Interpretation [...] (test code = 1016) (NOTE) Delfino Endy [facility] W/AUTO [id number] 00:00:00* Test Item Value Reference Range Interpretation [...] (test code = 1016) (NOTE) Delfino Endy [facility] W/AUTO [id number] 00:00:00* Test Item Value Reference Range Interpretation [...] (test code = 1016) (NOTE) [facility] [id number] 00:00:00* Test Item Value Reference Range Interpretation [...] (test code = 1016) (NOTE) Delfino Schumacher [facility] W/AUTO [id number] 00:00:00* Test Item Value Reference Range Interpretation [...] (test code = 1016) (NOTE) Delfino Schumacher [facility] W/AUTO [id number] 00:00:00* Test Item Value Reference Range Interpretation [...] (test code = 1016) (NOTE) Delfino Schumacher [facility] W/AUTO [id number] 00:00:00* Test Item Value Reference Range Interpretation [...] code = 1016) (NOTE) Delfino OrtaC W/AUTO [id number] 00:00:00* Test Item Value Reference Range Interpretation [...] (test code = 1016) (NOTE) Delfino Schumacher [facility] W/AUTO [id number] 00:00:00* Test Item Value Reference Range Interpretation [...] (test code = 1016) (NOTE) Delfino Schumacher [facility] W/AUTO [id number] 00:00:00* Test Item Value Reference Range Interpretation [...] (test code = 1016) (NOTE) [facility]elf[facility] [id number] 00:00:00* Test Item Value Reference Range Interpretation [...] (test code = 1016) (NOTE) [facility]elf[facility] [id number] 00:00:00* Test Item Value Reference Range Interpretation [...] (test code = 1016) (NOTE) Delfino Schumacher [facility] W/AUTO [id number] 00:00:00* Test Item Value Reference Range Interpretation [...] COMMENTS (test code = 1016) (NOTE) [facility] [id number] 00:00:00* Test Item Value Reference Range Interpretation [...] code = 1016) (NOTE) Delfino OrtaCOMPREHENSIVE METABOLIC [id number] 00:00:00* Test Item Value Reference Range Interpretation Comme nts GLUCOSE (test code = 2217) 92 MG/DL BUN (test code = 2208) 20 MG/DL CREATININE (test code = 2214) 1.31 MG/DL eGFR AMER. (test cod e = 40593) 53 ML/MIN/1.73 eGFR NON- AMER. (test code = 89737) 45 ML/MIN/1.73 CALC BUN/CREAT (test code = [...] = 2219) 16 U/L Delfino OrtaCBC W/AUTO [id number] 00:00:00* Test Item Value Reference Range Interpretation [...] 1016) (NOTE) Delfino Schumacher [facility] [id number] 00:00:00* Test Item Value Reference Range Interpretation Comme nts DIANNA SPECIES (test code = ) NEGATIVE G. VAGINALIS (test code = 68340) POSITIVE T. VAGINALIS (test code = 45027) NEGATIVE Delfino Schumacher [facility] [id number] 00:00:00* Test Item Value Reference Range Interpretation Comme nts DIANNA SPECIES (test code = ) NEGATIVE G. VAGINALIS (test code = 52857) POSITIVE T. VAGINALIS (test code = 55658) NEGATIVE Delfino OrtaCOMPREHENSIVE METABOLIC [id number] 00:00:00* Test Item Value Reference Range Interpretation Comme nts GLUCOSE (test code = 2217) 92 MG/DL BUN (test code = 2208) 20 MG/DL CREATININE (test code = 2214) 1.31 MG/DL eGFR AMER. (test cod e = 66913) 53 ML/MIN/1.73 eGFR NON- AMER. (test code = 29109) 45 ML/MIN/1.73 CALC BUN/CREAT (test code = [...] = 2219) 16 U/L Delfino OrtaCBC W/AUTO [id number] 00:00:00* Test Item Value Reference Range Interpretation [...] 1016) (NOTE) Delfino Schumacher [facility] [id number] 00:00:00* Test Item Value Reference Range Interpretation Comme nts DIANNA SPECIES (test code = 50281) NEGATIVE G. VAGINALIS (test code = 95878) POSITIVE T. VAGINALIS (test code = ) NEGATIVE COMPREHENSIVE METABOLIC [id number] 00:00:00* Test Item Value Reference Range Interpretation Comme nts GLUCOSE (test code = 2217) 92 MG/DL BUN (test code = 2208) 20 MG/DL CREATININE (test code = 2214) 1.31 MG/DL eGFR AMER. (test cod e = 03422) 53 ML/MIN/1.73 eGFR NON- AMER. (test code = 79806) 45 ML/MIN/1.73 CALC BUN/CREAT (test code = [...] = 2219) 16 U/L VAGINAL PATHOGENS DNA [id number] 00:00:00* Test Item Value Reference Range Interpretation Comme nts DIANNA SPECIES (test code = ) NEGATIVE G. VAGINALIS (test code = ) POSITIVE T. VAGINALIS (test code = ) NEGATIVE Delfino rOtaCOMPREHENSIVE METABOLIC [id number] 00:00:00* Test Item Value Reference Range Interpretation Comme nts GLUCOSE (test code = 2217) 92 MG/DL BUN (test code = 2208) 20 MG/DL CREATININE (test code = 2214) 1.31 MG/DL eGFR AMER. (test cod e = 06348) 53 ML/MIN/1.73 eGFR NON- AMER. (test code = 35120) 45 ML/MIN/1.73 CALC BUN/CREAT (test code = [...] 2219) 16 U/L Delfino Schumacher YouCBC W/AUTO [id number] 00:00:00* Test Item Value Reference Range Interpretation [...] code = 1016) (NOTE) VAGINAL PATHOGENS DNA [id number] 00:00:00* Test Item Value Reference Range Interpretation Comme nts DIANNA SPECIES (test code = ) NEGATIVE G. VAGINALIS (test code = ) POSITIVE T. VAGINALIS (test code = ) NEGATIVE CBC W/AUTO [id number] 00:00:00* Test Item Value Reference Range Interpretation [...] = 1016) (NOTE) Delfino OrtaVAGINAL PATHOGENS DNA [id number] 00:00:00* Test Item Value Reference Range Interpretation Comme nts DIANNA SPECIES (test code = ) NEGATIVE G. VAGINALIS (test code = 64093) POSITIVE T. VAGINALIS (test code = ) NEGATIVE Delfino OrtaCOMPREHENSIVE METABOLIC [id number] 00:00:00* Test Item Value Reference Range Interpretation Comme nts GLUCOSE (test code = 2217) 92 MG/DL BUN (test code = 2208) 20 MG/DL CREATININE (test code = 2214) 1.31 MG/DL eGFR AMER. (test cod e = 89950) 53 ML/MIN/1.73 eGFR NON- AMER. (test code = 07425) 45 ML/MIN/1.73 CALC BUN/CREAT (test code = [...] code = 2219) 16 U/L COMPREHENSIVE METABOLIC [id number] 00:00:00* Test Item Value Reference Range Interpretation Comme nts GLUCOSE (test code = 2217) 92 MG/DL BUN (test code = 2208) 20 MG/DL CREATININE (test code = 2214) 1.31 MG/DL eGFR AMER. (test cod e = 72535) 53 ML/MIN/1.73 eGFR NON- AMER. (test code = 59107) 45 ML/MIN/1.73 CALC BUN/CREAT (test code = [...] = 2219) 16 U/L Delfino OrtaCOMPREHENSIVE METABOLIC [id number] 00:00:00* Test Item Value Reference Range Interpretation Comme nts GLUCOSE (test code = 2217) 92 MG/DL BUN (test code = 2208) 20 MG/DL CREATININE (test code = 2214) 1.31 MG/DL eGFR AMER. (test cod e = 66674) 53 ML/MIN/1.73 eGFR NON- AMER. (test code = 57057) 45 ML/MIN/1.73 CALC BUN/CREAT (test code = [...] = 2219) 16 U/L Delfino OrtaCBC W/AUTO [id number] 00:00:00* Test Item Value Reference Range Interpretation [...] (test code = 1016) (NOTE) CBC W/AUTO [id number] 00:00:00* Test Item Value Reference Range Interpretation [...] 1016) (NOTE) Delfino F [facility] [id number] 00:00:00* Test Item Value Reference Range Interpretation Comme nts DIANNA SPECIES (test code = ) NEGATIVE G. VAGINALIS (test code = 49162) POSITIVE T. VAGINALIS (test code = 46414) NEGATIVE VAGINAL PATHOGENS DNA [id number] 00:00:00* Test Item Value Reference Range Interpretation Comme nts DIANNA SPECIES (test code = ) NEGATIVE G. VAGINALIS (test code = 59875) POSITIVE T. VAGINALIS (test code = 31101) NEGATIVE Delfino F AustinCOMPREHENSIVE METABOLIC [id number] 00:00:00* Test Item Value Reference Range Interpretation Comme nts GLUCOSE (test code = 2217) 92 MG/DL BUN (test code = 2208) 20 MG/DL CREATININE (test code = 2214) 1.31 MG/DL eGFR AMER. (test cod e = 39651) 53 ML/MIN/1.73 eGFR NON- AMER. (test code = 58152) 45 ML/MIN/1.73 CALC BUN/CREAT (test code = [...] code = 2219) 16 U/L CBC W/AUTO [id number] 00:00:00* Test Item Value Reference Range Interpretation [...] (test code = 1016) (NOTE) COMPREHENSIVE METABOLIC [id number] 00:00:00* Test Item Value Reference Range Interpretation Comme nts GLUCOSE (test code = 2217) 92 MG/DL BUN (test code = 2208) 20 MG/DL CREATININE (test code = 2214) 1.31 MG/DL eGFR AMER. (test cod e = 71891) 53 ML/MIN/1.73 eGFR NON- AMER. (test code = 72036) 45 ML/MIN/1.73 CALC BUN/CREAT (test code = [...] = 2219) 16 U/L Delfino OrtaCBC W/AUTO [id number] 00:00:00* Test Item Value Reference Range Interpretation [...] = 1016) (NOTE) Delfino OrtaVAGINAL PATHOGENS DNA [id number] 00:00:00* Test Item Value Reference Range Interpretation Comme nts DIANNA SPECIES (test code = ) NEGATIVE G. VAGINALIS (test code = ) POSITIVE T. VAGINALIS (test code = ) NEGATIVE CBC W/AUTO [id number] 00:00:00* Test Item Value Reference Range Interpretation [...] = 1016) (NOTE) Delfino Schumacher YouCOMPREHENSIVE METABOLIC [id number] 00:00:00* Test Item Value Reference Range Interpretation Comme nts GLUCOSE (test code = 2217) 92 MG/DL BUN (test code = 2208) 20 MG/DL CREATININE (test code = 2214) 1.31 MG/DL eGFR AMER. (test cod e = 40338) 53 ML/MIN/1.73 eGFR NON- AMER. (test code = 57708) 45 ML/MIN/1.73 CALC BUN/CREAT (test code = [...] code = 2219) 16 U/L CBC W/AUTO [id number] 00:00:00* Test Item Value Reference Range Interpretation [...] code = 1016) (NOTE) VAGINAL PATHOGENS DNA [id number] 00:00:00* Test Item Value Reference Range Interpretation Comme nts DIANNA SPECIES (test code = ) NEGATIVE G. VAGINALIS (test code = ) POSITIVE T. VAGINALIS (test code = ) NEGATIVE Delfino F AustinCOMPREHENSIVE METABOLIC [id number] 00:00:00* Test Item Value Reference Range Interpretation Comme nts GLUCOSE (test code = 2217) 92 MG/DL BUN (test code = 2208) 20 MG/DL CREATININE (test code = 2214) 1.31 MG/DL eGFR AMER. (test cod e = 69539) 53 ML/MIN/1.73 eGFR NON- AMER. (test code = 60714) 45 ML/MIN/1.73 CALC BUN/CREAT (test code = [...] = 2219) 16 U/L Delfino OrtaCBC W/AUTO [id number] 00:00:00* Test Item Value Reference Range Interpretation [...] 1016) (NOTE) Delfino F YouVAGINAL PATHOGENS DNA [id number] 00:00:00* Test Item Value Reference Range Interpretation Comme nts DIANNA SPECIES (test code = ) NEGATIVE G. VAGINALIS (test code = ) POSITIVE T. VAGINALIS (test code = ) NEGATIVE Delfino Schumacher YouCOMPREHENSIVE METABOLIC [id number] 00:00:00* Test Item Value Reference Range Interpretation Comme nts GLUCOSE (test code = 2217) 92 MG/DL BUN (test code = 2208) 20 MG/DL CREATININE (test code = 2214) 1.31 MG/DL eGFR AMER. (test cod e = 33905) 53 ML/MIN/1.73 eGFR NON- AMER. (test code = 66385) 45 ML/MIN/1.73 CALC BUN/CREAT (test code = [...] = 2219) 16 U/L Delfino OrtaCBC W/AUTO [id number] 00:00:00* Test Item Value Reference Range Interpretation [...] = 1016) (NOTE) Delfino OrtaVAGINAL PATHOGENS DNA [id number] 00:00:00* Test Item Value Reference Range Interpretation Comme nts DIANNA SPECIES (test code = ) NEGATIVE G. VAGINALIS (test code = ) POSITIVE T. VAGINALIS (test code = ) NEGATIVE Delfino OrtaCOMPREHENSIVE METABOLIC [id number] 00:00:00* Test Item Value Reference Range Interpretation Comme nts GLUCOSE (test code = 2217) 92 MG/DL BUN (test code = 2208) 20 MG/DL CREATININE (test code = 2214) 1.31 MG/DL eGFR AMER. (test cod e = 83261) 53 ML/MIN/1.73 eGFR NON- AMER. (test code = 42413) 45 ML/MIN/1.73 CALC BUN/CREAT (test code = [...] = 2219) 16 U/L Delfino OrtaCBC W/AUTO [id number] 00:00:00* Test Item Value Reference Range Interpretation [...] = 1016) (NOTE) Delfino OrtaVAGINAL PATHOGENS DNA [id number] 00:00:00* Test Item Value Reference Range Interpretation Comme nts DIANNA SPECIES (test code = ) NEGATIVE G. VAGINALIS (test code = ) POSITIVE T. VAGINALIS (test code = ) NEGATIVE Delfino OrtaCOMPREHENSIVE METABOLIC [id number] 00:00:00* Test Item Value Reference Range Interpretation Comme nts GLUCOSE (test code = 2217) 92 MG/DL BUN (test code = 2208) 20 MG/DL CREATININE (test code = 2214) 1.31 MG/DL eGFR AMER. (test cod e = 50723) 53 ML/MIN/1.73 eGFR NON- AMER. (test code = 87593) 45 ML/MIN/1.73 CALC BUN/CREAT (test code = [...] = 2219) 16 U/L Delfino OrtaCBC W/AUTO [id number] 00:00:00* Test Item Value Reference Range Interpretation [...] = 1016) (NOTE) Delfino OrtaVAGINAL PATHOGENS DNA [id number] 00:00:00* Test Item Value Reference Range Interpretation Comme nts DIANNA SPECIES (test code = ) NEGATIVE G. VAGINALIS (test code = ) POSITIVE T. VAGINALIS (test code = ) NEGATIVE Delfino OrtaCOMPREHENSIVE METABOLIC [id number] 00:00:00* Test Item Value Reference Range Interpretation Comme nts GLUCOSE (test code = 2217) 92 MG/DL BUN (test code = 2208) 20 MG/DL CREATININE (test code = 2214) 1.31 MG/DL eGFR AMER. (test cod e = 54191) 53 ML/MIN/1.73 eGFR NON- AMER. (test code = 36938) 45 ML/MIN/1.73 CALC BUN/CREAT (test code = [...] = 2219) 16 U/L Delfino OrtaCBC W/AUTO [id number] 00:00:00* Test Item Value Reference Range Interpretation [...] 1016) (NOTE) Delfino Schumacher [facility] [id number] 00:00:00* Test Item Value Reference Range Interpretation Comme nts DIANNA SPECIES (test code = ) NEGATIVE G. VAGINALIS (test code = ) POSITIVE T. VAGINALIS (test code = 33605) NEGATIVE Delfino Schumacher YouCOMPREHENSIVE METABOLIC [id number] 00:00:00* Test Item Value Reference Range Interpretation Comme nts GLUCOSE (test code = 2217) 92 MG/DL BUN (test code = 2208) 20 MG/DL CREATININE (test code = 2214) 1.31 MG/DL eGFR AMER. (test cod e = 93027) 53 ML/MIN/1.73 eGFR NON- AMER. (test code = 89750) 45 ML/MIN/1.73 CALC BUN/CREAT (test code = [...] = 2219) 16 U/L Delfino OrtaCBC W/AUTO [id number] 00:00:00* Test Item Value Reference Range Interpretation [...] = 1016) (NOTE) Delfino OrtaVAGINAL PATHOGENS DNA [id number] 00:00:00* Test Item Value Reference Range Interpretation Comme nts DIANNA SPECIES (test code = 38165) NEGATIVE G. VAGINALIS (test code = ) POSITIVE T. VAGINALIS (test code = ) NEGATIVE Delfino OrtaCOMPREHENSIVE METABOLIC [id number] 00:00:00* Test Item Value Reference Range Interpretation Comme nts GLUCOSE (test code = 2217) 92 MG/DL BUN (test code = 2208) 20 MG/DL CREATININE (test code = 2214) 1.31 MG/DL eGFR AMER. (test cod e = 64842) 53 ML/MIN/1.73 eGFR NON- AMER. (test code = 10932) 45 ML/MIN/1.73 CALC BUN/CREAT (test code = [...] 2219) 16 U/L Delfino Schumacher YouCBC W/AUTO [id number] 00:00:00* Test Item Value Reference Range Interpretation [...] 1016) (NOTE) Delfino Schumacher [facility] PATHOGENS DNA [id number] 00:00:00* Test Item Value Reference Range Interpretation Comme nts DIANNA SPECIES (test code = ) NEGATIVE G. VAGINALIS (test code = ) POSITIVE T. VAGINALIS (test code = ) NEGATIVE Delfino Schumacher YouCOMPREHENSIVE METABOLIC [id number] 00:00:00* Test Item Value Reference Range Interpretation Comme nts GLUCOSE (test code = 7) 92 MG/DL BUN (test code = 8) 20 MG/DL CREATININE (test code = 2214) 1.31 MG/DL eGFR AMER. (test cod e = 47114) 53 ML/MIN/1.73 eGFR NON- AMER. (test code = 64365) 45 ML/MIN/1.73 CALC BUN/CREAT (test code = [...] = 2219) 16 U/L Delfino OrtaCBC W/AUTO [id number] 00:00:00* Test Item Value Reference Range Interpretation [...] = 1016) (NOTE) Delfino OrtaVAGINAL PATHOGENS DNA [id number] 00:00:00* Test Item Value Reference Range Interpretation Comme nts DIANNA SPECIES (test code = ) NEGATIVE G. VAGINALIS (test code = ) POSITIVE T. VAGINALIS (test code = ) NEGATIVE Delfino OrtaCOMPREHENSIVE METABOLIC [id number] 00:00:00* Test Item Value Reference Range Interpretation Comme nts GLUCOSE (test code = 2217) 92 MG/DL BUN (test code = 2208) 20 MG/DL CREATININE (test code = 2214) 1.31 MG/DL eGFR AMER. (test cod e = 70459) 53 ML/MIN/1.73 eGFR NON- AMER. (test code = 32057) 45 ML/MIN/1.73 CALC BUN/CREAT (test code = [...] 2219) 16 U/L Delfino Schumacher YouCBC W/AUTO [id number] 00:00:00* Test Item Value Reference Range Interpretation [...] = 1016) (NOTE) Delfino OrtaVAGINAL PATHOGENS DNA [id number] 00:00:00* Test Item Value Reference Range Interpretation Comme nts DIANNA SPECIES (test code = ) NEGATIVE G. VAGINALIS (test code = ) POSITIVE T. VAGINALIS (test code = ) NEGATIVE Delfino OrtaCOMPREHENSIVE METABOLIC [id number] 00:00:00* Test Item Value Reference Range Interpretation Comme nts GLUCOSE (test code = 2217) 92 MG/DL BUN (test code = 2208) 20 MG/DL CREATININE (test code = 2214) 1.31 MG/DL eGFR AMER. (test cod e = 97812) 53 ML/MIN/1.73 eGFR NON- AMER. (test code = 22013) 45 ML/MIN/1.73 CALC BUN/CREAT (test code = [...] = 2219) 16 U/L Delfino OrtaCBC W/AUTO [id number] 00:00:00* Test Item Value Reference Range Interpretation [...] 1016) (NOTE) Delfino Schumacher [facility] [id number] 00:00:00* Test Item Value Reference Range Interpretation Comme nts DIANNA SPECIES (test code = ) NEGATIVE G. VAGINALIS (test code = ) POSITIVE T. VAGINALIS (test code = ) NEGATIVE Delfino OrtaCOMPREHENSIVE METABOLIC [id number] 00:00:00* Test Item Value Reference Range Interpretation Comme nts GLUCOSE (test code = 2217) 92 MG/DL BUN (test code = 8) 20 MG/DL CREATININE (test code = 2214) 1.31 MG/DL eGFR AMER. (test cod e = 34521) 53 ML/MIN/1.73 eGFR NON- AMER. (test code = 74736) 45 ML/MIN/1.73 CALC BUN/CREAT (test code = [...] = 2219) 16 U/L Delfino OrtaCBC W/AUTO [id number] 00:00:00* Test Item Value Reference Range Interpretation [...] = 1016) (NOTE) Delfino OrtaVAGINAL PATHOGENS DNA [id number] 00:00:00* Test Item Value Reference Range Interpretation Comme nts DIANNA SPECIES (test code = ) NEGATIVE G. VAGINALIS (test code = ) POSITIVE T. VAGINALIS (test code = ) NEGATIVE Delfino OrtaCOMPREHENSIVE METABOLIC [id number] 00:00:00* Test Item Value Reference Range Interpretation Comme nts GLUCOSE (test code = 2217) 92 MG/DL BUN (test code = 2208) 20 MG/DL CREATININE (test code = 2214) 1.31 MG/DL eGFR AMER. (test cod e = 95166) 53 ML/MIN/1.73 eGFR NON- AMER. (test code = 04605) 45 ML/MIN/1.73 CALC BUN/CREAT (test code = [...] = 2219) 16 U/L Delfino OrtaCBC W/AUTO [id number] 00:00:00* Test Item Value Reference Range Interpretation [...] = 1016) (NOTE) Delfino OrtaVAGINAL PATHOGENS DNA [id number] 00:00:00* Test Item Value Reference Range Interpretation Comme nts DIANNA SPECIES (test code = ) NEGATIVE G. VAGINALIS (test code = ) POSITIVE T. VAGINALIS (test code = 93718) NEGATIVE Delfino OrtaCOMPREHENSIVE METABOLIC [id number] 00:00:00* Test Item Value Reference Range Interpretation Comme nts GLUCOSE (test code = 2217) 92 MG/DL BUN (test code = 2208) 20 MG/DL CREATININE (test code = 2214) 1.31 MG/DL eGFR AMER. (test cod e = 75898) 53 ML/MIN/1.73 eGFR NON- AMER. (test code = 27712) 45 ML/MIN/1.73 CALC BUN/CREAT (test code = [...] = 2219) 16 U/L Delfino OrtaCBC W/AUTO [id number] 00:00:00* Test Item Value Reference Range Interpretation [...] = 1016) (NOTE) Delfino OrtaVAGINAL PATHOGENS DNA [id number] 00:00:00* Test Item Value Reference Range Interpretation Comme nts DIANNA SPECIES (test code = ) NEGATIVE G. VAGINALIS (test code = ) POSITIVE T. VAGINALIS (test code = ) NEGATIVE Delfino OrtaCOMPREHENSIVE METABOLIC [id number] 00:00:00* Test Item Value Reference Range Interpretation Comme nts GLUCOSE (test code = 2217) 92 MG/DL BUN (test code = 2208) 20 MG/DL CREATININE (test code = 2214) 1.31 MG/DL eGFR AMER. (test cod e = 89664) 53 ML/MIN/1.73 eGFR NON- AMER. (test code = 61117) 45 ML/MIN/1.73 CALC BUN/CREAT (test code = [...] = 2219) 16 U/L Delfino OrtaCBC W/AUTO [id number] 00:00:00* Test Item Value Reference Range Interpretation [...] 1016) (NOTE) Delfino F AustinVAGINAL PATHOGENS DNA [id number] 00:00:00* Test Item Value Reference Range Interpretation Comme nts DIANNA SPECIES (test code = ) NEGATIVE G. VAGINALIS (test code = ) POSITIVE T. VAGINALIS (test code = ) NEGATIVE Delfino OrtaCOMPREHENSIVE METABOLIC [id number] 00:00:00* Test Item Value Reference Range Interpretation Comme nts GLUCOSE (test code = 2217) 92 MG/DL BUN (test code = 2208) 20 MG/DL CREATININE (test code = 2214) 1.31 MG/DL eGFR AMER. (test cod e = 03683) 53 ML/MIN/1.73 eGFR NON- AMER. (test code = 17167) 45 ML/MIN/1.73 CALC BUN/CREAT (test code = [...] = 2219) 16 U/L Delfino OrtaCBC W/AUTO [id number] 00:00:00* Test Item Value Reference Range Interpretation [...] 1016) (NOTE) Delfino Schumacher [facility] [id number] 00:00:00* Test Item Value Reference Range Interpretation Comme nts DIANNA SPECIES (test code = ) NEGATIVE G. VAGINALIS (test code = ) POSITIVE T. VAGINALIS (test code = ) NEGATIVE Delfino OrtaCOMPREHENSIVE METABOLIC [id number] 00:00:00* Test Item Value Reference Range Interpretation Comme nts GLUCOSE (test code = 2217) 92 MG/DL BUN (test code = 2208) 20 MG/DL CREATININE (test code = 2214) 1.31 MG/DL eGFR AMER. (test cod e = 51573) 53 ML/MIN/1.73 eGFR NON- AMER. (test code = 82192) 45 ML/MIN/1.73 CALC BUN/CREAT (test code = [...] = 2219) 16 U/L Delfino OrtaCBC W/AUTO [id number] 00:00:00* Test Item Value Reference Range Interpretation [...] = 1016) (NOTE) Delfino OrtaVAGINAL PATHOGENS DNA [id number] 00:00:00* Test Item Value Reference Range Interpretation Comme nts DIANNA SPECIES (test code = ) NEGATIVE G. VAGINALIS (test code = ) POSITIVE T. VAGINALIS (test code = ) NEGATIVE Delfino OrtaCOMPREHENSIVE METABOLIC [id number] 00:00:00* Test Item Value Reference Range Interpretation Comme nts GLUCOSE (test code = 2217) 92 MG/DL BUN (test code = 2208) 20 MG/DL CREATININE (test code = 2214) 1.31 MG/DL eGFR AMER. (test cod e = 78673) 53 ML/MIN/1.73 eGFR NON- AMER. (test code = 08742) 45 ML/MIN/1.73 CALC BUN/CREAT (test code = [...] = 2219) 16 U/L Delfino OrtaCBC W/AUTO [id number] 00:00:00* Test Item Value Reference Range Interpretation [...] = 1016) (NOTE) Delfino OrtaVAGINAL PATHOGENS DNA [id number] 00:00:00* Test Item Value Reference Range Interpretation Comme nts DIANNA SPECIES (test code = 37475) NEGATIVE G. VAGINALIS (test code = ) POSITIVE T. VAGINALIS (test code = ) NEGATIVE Delfino OrtaCOMPREHENSIVE METABOLIC [id number] 00:00:00* Test Item Value Reference Range Interpretation Comme nts GLUCOSE (test code = 2217) 92 MG/DL BUN (test code = 2208) 20 MG/DL CREATININE (test code = 2214) 1.31 MG/DL eGFR AMER. (test cod e = 34958) 53 ML/MIN/1.73 eGFR NON- AMER. (test code = 77629) 45 ML/MIN/1.73 CALC BUN/CREAT (test code = [...] code = 2219) 16 U/L Delfino Schumacher [facility] W/AUTO [id number] 00:00:00* Test Item Value Reference Range Interpretation [...] (test code = 1016) (NOTE) Delfino Schumacher [facility] [id number] 00:00:00* Test Item Value Reference Range Interpretation Comme nts DIANNA SPECIES (test code = ) NEGATIVE G. VAGINALIS (test code = ) POSITIVE T. VAGINALIS (test code = ) NEGATIVE Delfino Schumacher [facility] W/AUTO [id number] 00:00:00* Test Item Value Reference Range Interpretation [...] = 1015) 212 K/UL Delfino OrtaCOMPREHENSIVE METABOLIC [id number] 00:00:00* Test Item Value Reference Range Interpretation Comme nts GLUCOSE (test code = 2217) 95 MG/DL BUN (test code = 2208) 21 MG/DL CREATININE (test code = 2214) 0.87 MG/DL eGFR AMER. (test cod e = 23381) 87 ML/MIN/1.73 eGFR NON- AMER. (test code = 88170) 75 ML/MIN/1.73 CALC BUN/CREAT (test code = [...] code = 2219) 8 U/L Delfino OrtaURIC [id number] 00:00:00* Test Item Value Reference Range Interpretation Comme nts URIC ACID (test code = 2233) 8.5 MG/DL Delfino OrtaVITAMIN [id number] 00:00:00* Test Item Value Reference Range Interpretation Comme nts VITAMIN B-12 (test code = 2840) 335 PG/ML Delfino OrtaCBC W/AUTO [id number] 00:00:00* Test Item Value Reference Range Interpretation [...] code = 1015) 212 K/UL Delfino OrtaLIPID [id number] 00:00:00* Test Item Value Reference Range Interpretation Comme nts CHOLESTEROL (test code = 2210) 141 MG/DL TRIGLYCERIDES (test code = 2232) 71 MG/DL HDL CHOLESTEROL (test code = 2220) 69 MG/DL CALC LDL CHOL (test code = 2237) 58 MG/DL RISK RATIO LDL/HDL (test cod e = 2238) 0.84 RATIO Delfino OrtaCOMPREHENSIVE METABOLIC [id number] 00:00:00* Test Item Value Reference Range Interpretation Comme nts GLUCOSE (test code = 2217) 95 MG/DL BUN (test code = 2208) 21 MG/DL CREATININE (test code = 2214) 0.87 MG/DL eGFR AMER. (test cod e = 03637) 87 ML/MIN/1.73 eGFR NON- AMER. (test code = 94038) 75 ML/MIN/1.73 CALC BUN/CREAT (test code = [...] code = 2219) 8 U/L Delfino OrtaURIC [id number] 00:00:00* Test Item Value Reference Range Interpretation Comme carlito URIC ACID (test code = 2233) 8.5 MG/DL Delfino OrtaVITAMIN [id number] 00:00:00* Test Item Value Reference Range Interpretation Comme carlito VITAMIN B-12 (test code = 2840) 335 PG/ML Delfino OrtaCBC W/AUTO [id number] 00:00:00* Test Item Value Reference Range Interpretation [...] code = 1015) 212 K/UL CBC W/AUTO [id number] 00:00:00* Test Item Value Reference Range Interpretation [...] code = 1015) 212 K/UL Delfino Schumacher YouLIPID [id number] 00:00:00* Test Item Value Reference Range Interpretation Comme nts CHOLESTEROL (test code = 2210) 141 MG/DL TRIGLYCERIDES (test code = 2232) 71 MG/DL HDL CHOLESTEROL (test code = 2220) 69 MG/DL CALC LDL CHOL (test code = 2237) 58 MG/DL RISK RATIO LDL/HDL (test cod e = 2238) 0.84 RATIO LIPID [id number] 00:00:00* Test Item Value Reference Range Interpretation Comme nts CHOLESTEROL (test code = 2210) 141 MG/DL TRIGLYCERIDES (test code = 2232) 71 MG/DL HDL CHOLESTEROL (test code = 2220) 69 MG/DL CALC LDL CHOL (test code = 2237) 58 MG/DL RISK RATIO LDL/HDL (test cod e = 2238) 0.84 RATIO Delfino OrtaCOMPREHENSIVE METABOLIC [id number] 00:00:00* Test Item Value Reference Range Interpretation Comme nts GLUCOSE (test code = 2217) 95 MG/DL BUN (test code = 2208) 21 MG/DL CREATININE (test code = 2214) 0.87 MG/DL eGFR AMER. (test cod e = 01679) 87 ML/MIN/1.73 eGFR NON- AMER. (test code = 99296) 75 ML/MIN/1.73 CALC BUN/CREAT (test code = [...] 2218) 27 U/L ALT (test code = 221) 8 U/L URIC [id number] 00:00:00* Test Item Value Reference Range Interpretation Comme nts URIC ACID (test code = 2233) 8.5 MG/DL VITAMIN [id number] 00:00:00* Test Item Value Reference Range Interpretation Comme nts VITAMIN B-12 (test code = 2840) 335 PG/ML LIPID [id number] 00:00:00* Test Item Value Reference Range Interpretation Comme nts CHOLESTEROL (test code = 2210) 141 MG/DL TRIGLYCERIDES (test code = 2232) 71 MG/DL HDL CHOLESTEROL (test code = 2220) 69 MG/DL CALC LDL CHOL (test code = 2237) 58 MG/DL RISK RATIO LDL/HDL (test cod e = 2238) 0.84 RATIO Delfino F AustinCOMPREHENSIVE METABOLIC [id number] 00:00:00* Test Item Value Reference Range Interpretation Comme nts GLUCOSE (test code = 2217) 95 MG/DL BUN (test code = 2208) 21 MG/DL CREATININE (test code = 2214) 0.87 MG/DL eGFR AMER. (test cod e = 48500) 87 ML/MIN/1.73 eGFR NON- AMER. (test code = 50844) 75 ML/MIN/1.73 CALC BUN/CREAT (test code = [...] code = 2219) 8 U/L Delfino OrtaURIC [id number] 00:00:00* Test Item Value Reference Range Interpretation Comme [facility] URIC ACID (test code = 2233) 8.5 MG/DL Delfino OrtaVITAMIN [id number] 00:00:00* Test Item Value Reference Range Interpretation Comme [facility] VITAMIN B-12 (test code = 2840) 335 PG/ML Delfino OrtaCBC W/AUTO [id number] 00:00:00* Test Item Value Reference Range Interpretation [...] code = 1015) 212 K/UL CBC W/AUTO [id number] 00:00:00* Test Item Value Reference Range Interpretation [...] = 1015) 212 K/UL Delfino Schumacher AustinLIPID [id number] 00:00:00* Test Item Value Reference Range Interpretation Comme nts CHOLESTEROL (test code = 2210) 141 MG/DL TRIGLYCERIDES (test code = 2232) 71 MG/DL HDL CHOLESTEROL (test code = 2220) 69 MG/DL CALC LDL CHOL (test code = 2237) 58 MG/DL RISK RATIO LDL/HDL (test cod e = 2238) 0.84 RATIO LIPID [id number] 00:00:00* Test Item Value Reference Range Interpretation Comme nts CHOLESTEROL (test code = 2210) 141 MG/DL TRIGLYCERIDES (test code = 2232) 71 MG/DL HDL CHOLESTEROL (test code = 2220) 69 MG/DL CALC LDL CHOL (test code = 2237) 58 MG/DL RISK RATIO LDL/HDL (test cod e = 2238) 0.84 RATIO Delfino OrtaCOMPREHENSIVE METABOLIC [id number] 00:00:00* Test Item Value Reference Range Interpretation Comme nts GLUCOSE (test code = 2217) 95 MG/DL BUN (test code = 2208) 21 MG/DL CREATININE (test code = 2214) 0.87 MG/DL eGFR AMER. (test cod e = 94027) 87 ML/MIN/1.73 eGFR NON- AMER. (test code = 18437) 75 ML/MIN/1.73 CALC BUN/CREAT (test code = [...] code = 2219) 8 U/L Delfino Schumacher YouCOMPREHENSIVE METABOLIC [id number] 00:00:00* Test Item Value Reference Range Interpretation Comme nts GLUCOSE (test code = 2217) 95 MG/DL BUN (test code = 2208) 21 MG/DL CREATININE (test code = 2214) 0.87 MG/DL eGFR AMER. (test cod e = 29080) 87 ML/MIN/1.73 eGFR NON- AMER. (test code = 75941) 75 ML/MIN/1.73 CALC BUN/CREAT (test code = [...] (test code = 2219) 8 U/L URIC [id number] 00:00:00* Test Item Value Reference Range Interpretation Comme nts URIC ACID (test code = 2233) 8.5 MG/DL VITAMIN [id number] 00:00:00* Test Item Value Reference Range Interpretation Comme nts VITAMIN B-12 (test code = 2840) 335 PG/ML URIC [id number] 00:00:00* Test Item Value Reference Range Interpretation Comme nts URIC ACID (test code = 2233) 8.5 MG/DL Delfino Schumacher YouCBC W/AUTO [id number] 00:00:00* Test Item Value Reference Range Interpretation [...] (test code = 1015) 212 K/UL VITAMIN [id number] 00:00:00* Test Item Value Reference Range Interpretation Comme nts VITAMIN B-12 (test code = 2840) 335 PG/ML Delfino Schumacher YouCOMPREHENSIVE METABOLIC [id number] 00:00:00* Test Item Value Reference Range Interpretation Comme nts GLUCOSE (test code = 2217) 95 MG/DL BUN (test code = 2208) 21 MG/DL CREATININE (test code = 2214) 0.87 MG/DL eGFR AMER. (test cod e = 85107) 87 ML/MIN/1.73 eGFR NON- AMER. (test code = 85786) 75 ML/MIN/1.73 CALC BUN/CREAT (test code = [...] (test code = 2219) 8 U/L Delfino OrtaLIPID [id number] 00:00:00* Test Item Value Reference Range Interpretation Comme nts CHOLESTEROL (test code = 2210) 141 MG/DL TRIGLYCERIDES (test code = 2232) 71 MG/DL HDL CHOLESTEROL (test code = 2220) 69 MG/DL CALC LDL CHOL (test code = 2237) 58 MG/DL RISK RATIO LDL/HDL (test cod e = 2238) 0.84 RATIO CBC W/AUTO [id number] 00:00:00* Test Item Value Reference Range Interpretation [...] = 1015) 212 K/UL Delfino OrtaCOMPREHENSIVE METABOLIC [id number] 00:00:00* Test Item Value Reference Range Interpretation Comme nts GLUCOSE (test code = 2217) 95 MG/DL BUN (test code = 2208) 21 MG/DL CREATININE (test code = 2214) 0.87 MG/DL eGFR AMER. (test cod e = 73899) 87 ML/MIN/1.73 eGFR NON- AMER. (test code = 04562) 75 ML/MIN/1.73 CALC BUN/CREAT (test code = [...] (test code = 2219) 8 U/L URIC [id number] 00:00:00* Test Item Value Reference Range Interpretation Comme nts URIC ACID (test code = 2233) 8.5 MG/DL VITAMIN [id number] 00:00:00* Test Item Value Reference Range Interpretation Comme nts VITAMIN B-12 (test code = 2840) 335 PG/ML LIPID [id number] 00:00:00* Test Item Value Reference Range Interpretation Comme nts CHOLESTEROL (test code = 2210) 141 MG/DL TRIGLYCERIDES (test code = 2232) 71 MG/DL HDL CHOLESTEROL (test code = 2220) 69 MG/DL CALC LDL CHOL (test code = 2237) 58 MG/DL RISK RATIO LDL/HDL (test cod e = 2238) 0.84 RATIO Delfino F YouCBC W/AUTO [id number] 00:00:00* Test Item Value Reference Range Interpretation [...] code = 1015) 212 K/UL COMPREHENSIVE METABOLIC [id number] 00:00:00* Test Item Value Reference Range Interpretation Comme nts GLUCOSE (test code = 2217) 95 MG/DL BUN (test code = 2208) 21 MG/DL CREATININE (test code = 2214) 0.87 MG/DL eGFR AMER. (test cod e = 58329) 87 ML/MIN/1.73 eGFR NON- AMER. (test code = 23495) 75 ML/MIN/1.73 CALC BUN/CREAT (test code = [...] = 2219) 8 U/L Delfino Schumacher AustinURIC [id number] 00:00:00* Test Item Value Reference Range Interpretation Comme nts URIC ACID (test code = 2233) 8.5 MG/DL Delfino OrtaVITAMIN [id number] 00:00:00* Test Item Value Reference Range Interpretation Comme nts VITAMIN B-12 (test code = 2840) 335 PG/ML Delfino OrtaLIPID [id number] 00:00:00* Test Item Value Reference Range Interpretation Comme nts CHOLESTEROL (test code = 2210) 141 MG/DL TRIGLYCERIDES (test code = 2232) 71 MG/DL HDL CHOLESTEROL (test code = 2220) 69 MG/DL CALC LDL CHOL (test code = 2237) 58 MG/DL RISK RATIO LDL/HDL (test cod e = 2238) 0.84 RATIO CBC W/AUTO [id number] 00:00:00* Test Item Value Reference Range Interpretation [...] 1015) 212 K/UL Delfino Schumacher AustinCOMPREHENSIVE METABOLIC [id number] 00:00:00* Test Item Value Reference Range Interpretation Comme nts GLUCOSE (test code = 2217) 95 MG/DL BUN (test code = 2208) 21 MG/DL CREATININE (test code = 2214) 0.87 MG/DL eGFR AMER. (test cod e = 50786) 87 ML/MIN/1.73 eGFR NON- AMER. (test code = 41972) 75 ML/MIN/1.73 CALC BUN/CREAT (test code = [...] (test code = 2219) 8 U/L URIC [id number] 00:00:00* Test Item Value Reference Range Interpretation Comme nts URIC ACID (test code = 2233) 8.5 MG/DL LIPID [id number] 00:00:00* Test Item Value Reference Range Interpretation Comme nts CHOLESTEROL (test code = 2210) 141 MG/DL TRIGLYCERIDES (test code = 2232) 71 MG/DL HDL CHOLESTEROL (test code = 2220) 69 MG/DL CALC LDL CHOL (test code = 2237) 58 MG/DL RISK RATIO LDL/HDL (test cod e = 2238) 0.84 RATIO Delfino OrtaVITAMIN [id number] 00:00:00* Test Item Value Reference Range Interpretation Comme nts VITAMIN B-12 (test code = 2840) 335 PG/ML URIC [id number] 00:00:00* Test Item Value Reference Range Interpretation Comme nts URIC ACID (test code = 2233) 8.5 MG/DL Delfino Schumacher YouCOMPREHENSIVE METABOLIC [id number] 00:00:00* Test Item Value Reference Range Interpretation Comme nts GLUCOSE (test code = 2217) 95 MG/DL BUN (test code = 2208) 21 MG/DL CREATININE (test code = 2214) 0.87 MG/DL eGFR AMER. (test cod e = 94011) 87 ML/MIN/1.73 eGFR NON- AMER. (test code = 37674) 75 ML/MIN/1.73 CALC BUN/CREAT (test code = [...] code = 2219) 8 U/L Delfino OrtaURIC [id number] 00:00:00* Test Item Value Reference Range Interpretation Comme nts URIC ACID (test code = 2233) 8.5 MG/DL Delfino OrtaVITAMIN [id number] 00:00:00* Test Item Value Reference Range Interpretation Comme [facility] VITAMIN B-12 (test code = 2840) 335 PG/ML Delfino OrtaCBC W/AUTO [id number] 00:00:00* Test Item Value Reference Range Interpretation [...] code = 1015) 212 K/UL Delfino OrtaVITAMIN [id number] 00:00:00* Test Item Value Reference Range Interpretation Comme [facility] VITAMIN B-12 (test code = 2840) 335 PG/ML Delfino OrtaLIPID [id number] 00:00:00* Test Item Value Reference Range Interpretation Comme nts CHOLESTEROL (test code = 2210) 141 MG/DL TRIGLYCERIDES (test code = 2232) 71 MG/DL HDL CHOLESTEROL (test code = 2220) 69 MG/DL CALC LDL CHOL (test code = 2237) 58 MG/DL RISK RATIO LDL/HDL (test cod e = 2238) 0.84 RATIO Delfino OrtaCOMPREHENSIVE METABOLIC [id number] 00:00:00* Test Item Value Reference Range Interpretation Comme nts GLUCOSE (test code = 2217) 95 MG/DL BUN (test code = 2208) 21 MG/DL CREATININE (test code = 2214) 0.87 MG/DL eGFR AMER. (test cod e = 37906) 87 ML/MIN/1.73 eGFR NON- AMER. (test code = 72644) 75 ML/MIN/1.73 CALC BUN/CREAT (test code = [...] code = 2219) 8 U/L Delfino OrtaURIC [id number] 00:00:00* Test Item Value Reference Range Interpretation Comme [facility] URIC ACID (test code = 2233) 8.5 MG/DL Delfino OrtaVITAMIN [id number] 00:00:00* Test Item Value Reference Range Interpretation Comme [facility] VITAMIN B-12 (test code = 2840) 335 PG/ML Delfino OrtaCBC W/AUTO [id number] 00:00:00* Test Item Value Reference Range Interpretation [...] code = 1015) 212 K/UL Delfino OrtaLIPID [id number] 00:00:00* Test Item Value Reference Range Interpretation Comme nts CHOLESTEROL (test code = 2210) 141 MG/DL TRIGLYCERIDES (test code = 2232) 71 MG/DL HDL CHOLESTEROL (test code = 2220) 69 MG/DL CALC LDL CHOL (test code = 2237) 58 MG/DL RISK RATIO LDL/HDL (test cod e = 2238) 0.84 RATIO Delfino OrtaCOMPREHENSIVE METABOLIC [id number] 00:00:00* Test Item Value Reference Range Interpretation Comme nts GLUCOSE (test code = 2217) 95 MG/DL BUN (test code = 2208) 21 MG/DL CREATININE (test code = 2214) 0.87 MG/DL eGFR AMER. (test cod e = 93476) 87 ML/MIN/1.73 eGFR NON- AMER. (test code = 72182) 75 ML/MIN/1.73 CALC BUN/CREAT (test code = [...] = 2219) 8 U/L Delfino Schumacher [place]URIC [id number] 00:00:00* Test Item Value Reference Range Interpretation Comme nts URIC ACID (test code = 2233) 8.5 MG/DL Delfino F AustinVITAMIN [id number] 00:00:00* Test Item Value Reference Range Interpretation Comme nts VITAMIN B-12 (test code = 2840) 335 PG/ML Delfino OrtaCBC W/AUTO [id number] 00:00:00* Test Item Value Reference Range Interpretation [...] code = 1015) 212 K/UL Delfino OrtaLIPID [id number] 00:00:00* Test Item Value Reference Range Interpretation Comme nts CHOLESTEROL (test code = 2210) 141 MG/DL TRIGLYCERIDES (test code = 2232) 71 MG/DL HDL CHOLESTEROL (test code = 2220) 69 MG/DL CALC LDL CHOL (test code = 2237) 58 MG/DL RISK RATIO LDL/HDL (test cod e = 2238) 0.84 RATIO Delfino OrtaCOMPREHENSIVE METABOLIC [id number] 00:00:00* Test Item Value Reference Range Interpretation Comme nts GLUCOSE (test code = 2217) 95 MG/DL BUN (test code = 2208) 21 MG/DL CREATININE (test code = 2214) 0.87 MG/DL eGFR AMER. (test cod e = 07428) 87 ML/MIN/1.73 eGFR NON- AMER. (test code = 77330) 75 ML/MIN/1.73 CALC BUN/CREAT (test code = [...] code = 2219) 8 U/L Delfino OrtaURIC [id number] 00:00:00* Test Item Value Reference Range Interpretation Comme [facility] URIC ACID (test code = 2233) 8.5 MG/DL Delfino OrtaVITAMIN [id number] 00:00:00* Test Item Value Reference Range Interpretation Comme [facility] VITAMIN B-12 (test code = 2840) 335 PG/ML Delfino OrtaCBC W/AUTO [id number] 00:00:00* Test Item Value Reference Range Interpretation [...] code = 1015) 212 K/UL Delfino OrtaLIPID [id number] 00:00:00* Test Item Value Reference Range Interpretation Comme nts CHOLESTEROL (test code = 2210) 141 MG/DL TRIGLYCERIDES (test code = 2232) 71 MG/DL HDL CHOLESTEROL (test code = 2220) 69 MG/DL CALC LDL CHOL (test code = 2237) 58 MG/DL RISK RATIO LDL/HDL (test cod e = 2238) 0.84 RATIO Delfino OrtaCOMPREHENSIVE METABOLIC [id number] 00:00:00* Test Item Value Reference Range Interpretation Comme nts GLUCOSE (test code = 2217) 95 MG/DL BUN (test code = 2208) 21 MG/DL CREATININE (test code = 2214) 0.87 MG/DL eGFR AMER. (test cod e = 46749) 87 ML/MIN/1.73 eGFR NON- AMER. (test code = 01507) 75 ML/MIN/1.73 CALC BUN/CREAT (test code = [...] code = 2219) 8 U/L Delfino OrtaURIC [id number] 00:00:00* Test Item Value Reference Range Interpretation Comme nts URIC ACID (test code = 2233) 8.5 MG/DL Delfino OrtaVITAMIN [id number] 00:00:00* Test Item Value Reference Range Interpretation Comme [facility] VITAMIN B-12 (test code = 2840) 335 PG/ML Delfino OrtaCBC W/AUTO [id number] 00:00:00* Test Item Value Reference Range Interpretation [...] code = 1015) 212 K/UL Delfino Schumacher [place]staff[place] [id number] 00:00:00* Test Item Value Reference Range Interpretation Comme nts CHOLESTEROL (test code = 2210) 141 MG/DL TRIGLYCERIDES (test code = 2232) 71 MG/DL HDL CHOLESTEROL (test code = 2220) 69 MG/DL CALC LDL CHOL (test code = 2237) 58 MG/DL RISK RATIO LDL/HDL (test cod e = 2238) 0.84 RATIO Delfino OrtaCOMPREHENSIVE METABOLIC [id number] 00:00:00* Test Item Value Reference Range Interpretation Comme nts GLUCOSE (test code = 2217) 95 MG/DL BUN (test code = 2208) 21 MG/DL CREATININE (test code = 2214) 0.87 MG/DL eGFR AMER. (test cod e = 87563) 87 ML/MIN/1.73 eGFR NON- AMER. (test code = 30435) 75 ML/MIN/1.73 CALC BUN/CREAT (test code = [...] code = 2219) 8 U/L Delfino OrtaURIC [id number] 00:00:00* Test Item Value Reference Range Interpretation Comme nts URIC ACID (test code = 2233) 8.5 MG/DL Delfino OrtaVITAMIN [id number] 00:00:00* Test Item Value Reference Range Interpretation Comme [facility] VITAMIN B-12 (test code = 2840) 335 PG/ML Delfino OrtaCBC W/AUTO [id number] 00:00:00* Test Item Value Reference Range Interpretation [...] code = 1015) 212 K/UL Delfino OrtaLIPID [id number] 00:00:00* Test Item Value Reference Range Interpretation Comme nts CHOLESTEROL (test code = 2210) 141 MG/DL TRIGLYCERIDES (test code = 2232) 71 MG/DL HDL CHOLESTEROL (test code = 2220) 69 MG/DL CALC LDL CHOL (test code = 2237) 58 MG/DL RISK RATIO LDL/HDL (test cod e = 2238) 0.84 RATIO Delfino OrtaCOMPREHENSIVE METABOLIC [id number] 00:00:00* Test Item Value Reference Range Interpretation Comme nts GLUCOSE (test code = 2217) 95 MG/DL BUN (test code = 2208) 21 MG/DL CREATININE (test code = 2214) 0.87 MG/DL eGFR AMER. (test cod e = 32027) 87 ML/MIN/1.73 eGFR NON- AMER. (test code = 63842) 75 ML/MIN/1.73 CALC BUN/CREAT (test code = [...] code = 2219) 8 U/L Delfino OrtaURIC [id number] 00:00:00* Test Item Value Reference Range Interpretation Comme [facility] URIC ACID (test code = 2233) 8.5 MG/DL Delfino OrtaVITAMIN [id number] 00:00:00* Test Item Value Reference Range Interpretation Comme [facility] VITAMIN B-12 (test code = 2840) 335 PG/ML Delfino OrtaCBC W/AUTO [id number] 00:00:00* Test Item Value Reference Range Interpretation [...] code = 1015) 212 K/UL Delfino OrtaLIPID [id number] 00:00:00* Test Item Value Reference Range Interpretation Comme nts CHOLESTEROL (test code = 2210) 141 MG/DL TRIGLYCERIDES (test code = 2232) 71 MG/DL HDL CHOLESTEROL (test code = 2220) 69 MG/DL CALC LDL CHOL (test code = 2237) 58 MG/DL RISK RATIO LDL/HDL (test cod e = 2238) 0.84 RATIO Delfino OrtaCOMPREHENSIVE METABOLIC [id number] 00:00:00* Test Item Value Reference Range Interpretation Comme nts GLUCOSE (test code = 2217) 95 MG/DL BUN (test code = 2208) 21 MG/DL CREATININE (test code = 2214) 0.87 MG/DL eGFR AMER. (test cod e = 85549) 87 ML/MIN/1.73 eGFR NON- AMER. (test code = 55403) 75 ML/MIN/1.73 CALC BUN/CREAT (test code = [...] code = 2219) 8 U/L Delfino OrtaURIC [id number] 00:00:00* Test Item Value Reference Range Interpretation Comme nts URIC ACID (test code = 2233) 8.5 MG/DL Delfino OrtaVITAMIN [id number] 00:00:00* Test Item Value Reference Range Interpretation Comme nts VITAMIN B-12 (test code = 2840) 335 PG/ML Delfino OrtaCBC W/AUTO [id number] 00:00:00* Test Item Value Reference Range Interpretation [...] code = 1015) 212 K/UL Delfino OrtaLIPID [id number] 00:00:00* Test Item Value Reference Range Interpretation Comme nts CHOLESTEROL (test code = 2210) 141 MG/DL TRIGLYCERIDES (test code = 2232) 71 MG/DL HDL CHOLESTEROL (test code = 2220) 69 MG/DL CALC LDL CHOL (test code = 2237) 58 MG/DL RISK RATIO LDL/HDL (test cod e = 2238) 0.84 RATIO Delfino OrtaCOMPREHENSIVE METABOLIC [id number] 00:00:00* Test Item Value Reference Range Interpretation Comme nts GLUCOSE (test code = 2217) 95 MG/DL BUN (test code = 2208) 21 MG/DL CREATININE (test code = 2214) 0.87 MG/DL eGFR AMER. (test cod e = 17639) 87 ML/MIN/1.73 eGFR NON- AMER. (test code = 17161) 75 ML/MIN/1.73 CALC BUN/CREAT (test code = [...] code = 2219) 8 U/L Delfino OrtaURIC [id number] 00:00:00* Test Item Value Reference Range Interpretation Comme [facility] URIC ACID (test code = 2233) 8.5 MG/DL Delfino OrtaVITAMIN [id number] 00:00:00* Test Item Value Reference Range Interpretation Comme [facility] VITAMIN B-12 (test code = 2840) 335 PG/ML Delfino OrtaCBC W/AUTO [id number] 00:00:00* Test Item Value Reference Range Interpretation [...] code = 1015) 212 K/UL Delfino OrtaLIPID [id number] 00:00:00* Test Item Value Reference Range Interpretation Comme nts CHOLESTEROL (test code = 2210) 141 MG/DL TRIGLYCERIDES (test code = 2232) 71 MG/DL HDL CHOLESTEROL (test code = 2220) 69 MG/DL CALC LDL CHOL (test code = 2237) 58 MG/DL RISK RATIO LDL/HDL (test cod e = 2238) 0.84 RATIO Delfino OrtaCOMPREHENSIVE METABOLIC [id number] 00:00:00* Test Item Value Reference Range Interpretation Comme nts GLUCOSE (test code = 2217) 95 MG/DL BUN (test code = 2208) 21 MG/DL CREATININE (test code = 2214) 0.87 MG/DL eGFR AMER. (test cod e = 09544) 87 ML/MIN/1.73 eGFR NON- AMER. (test code = 94524) 75 ML/MIN/1.73 CALC BUN/CREAT (test code = [...] code = 2219) 8 U/L Delfino OrtaURIC [id number] 00:00:00* Test Item Value Reference Range Interpretation Comme [facility] URIC ACID (test code = 2233) 8.5 MG/DL Delfino OrtaVITAMIN [id number] 00:00:00* Test Item Value Reference Range Interpretation Comme [facility] VITAMIN B-12 (test code = 2840) 335 PG/ML Delfino OrtaCBC W/AUTO [id number] 00:00:00* Test Item Value Reference Range Interpretation [...] = 1015) 212 K/UL Delfino Schumacher AustinLIPID [id number] 00:00:00* Test Item Value Reference Range Interpretation Comme nts CHOLESTEROL (test code = 2210) 141 MG/DL TRIGLYCERIDES (test code = 2232) 71 MG/DL HDL CHOLESTEROL (test code = 2220) 69 MG/DL CALC LDL CHOL (test code = 2237) 58 MG/DL RISK RATIO LDL/HDL (test cod e = 2238) 0.84 RATIO Delfino OrtaCOMPREHENSIVE METABOLIC [id number] 00:00:00* Test Item Value Reference Range Interpretation Comme nts GLUCOSE (test code = 2217) 95 MG/DL BUN (test code = 2208) 21 MG/DL CREATININE (test code = 2214) 0.87 MG/DL eGFR AMER. (test cod e = 55236) 87 ML/MIN/1.73 eGFR NON- AMER. (test code = 03273) 75 ML/MIN/1.73 CALC BUN/CREAT (test code = [...] code = 2219) 8 U/L Delfino OrtaURIC [id number] 00:00:00* Test Item Value Reference Range Interpretation Comme [facility] URIC ACID (test code = 2233) 8.5 MG/DL Delfino OrtaVITAMIN [id number] 00:00:00* Test Item Value Reference Range Interpretation Comme [facility] VITAMIN B-12 (test code = 2840) 335 PG/ML Delfino OrtaCBC W/AUTO [id number] 00:00:00* Test Item Value Reference Range Interpretation [...] code = 1015) 212 K/UL Delfino OrtaLIPID [id number] 00:00:00* Test Item Value Reference Range Interpretation Comme nts CHOLESTEROL (test code = 2210) 141 MG/DL TRIGLYCERIDES (test code = 2232) 71 MG/DL HDL CHOLESTEROL (test code = 2220) 69 MG/DL CALC LDL CHOL (test code = 2237) 58 MG/DL RISK RATIO LDL/HDL (test cod e = 2238) 0.84 RATIO Delfino OrtaCOMPREHENSIVE METABOLIC [id number] 00:00:00* Test Item Value Reference Range Interpretation Comme [facility] GLUCOSE (test code = 2217) 95 MG/DL BUN (test code = 2208) 21 MG/DL CREATININE (test code = 2214) 0.87 MG/DL eGFR AMER. (test cod e = 60595) 87 ML/MIN/1.73 eGFR NON- AMER. (test code = 25601) 75 ML/MIN/1.73 CALC BUN/CREAT (test code = [...] code = 2219) 8 U/L Delfino OrtaURIC [id number] 00:00:00* Test Item Value Reference Range Interpretation Comme [facility] URIC ACID (test code = 2233) 8.5 MG/DL Delfino OrtaVITAMIN [id number] 00:00:00* Test Item Value Reference Range Interpretation Comme [facility] VITAMIN B-12 (test code = 2840) 335 PG/ML Delfino OrtaCBC W/AUTO [id number] 00:00:00* Test Item Value Reference Range Interpretation Comme [facility] WBC (test code = 1001) 2.9 [...] code = 1015) 212 K/UL Delfino OrtaLIPID [id number] 00:00:00* Test Item Value Reference Range Interpretation Comme nts CHOLESTEROL (test code = 2210) 141 MG/DL TRIGLYCERIDES (test code = 2232) 71 MG/DL HDL CHOLESTEROL (test code = 2220) 69 MG/DL CALC LDL CHOL (test code = 2237) 58 MG/DL RISK RATIO LDL/HDL (test cod e = 2238) 0.84 RATIO Delfino OrtaCOMPREHENSIVE METABOLIC [id number] 00:00:00* Test Item Value Reference Range Interpretation Comme nts GLUCOSE (test code = 2217) 95 MG/DL BUN (test code = 2208) 21 MG/DL CREATININE (test code = 2214) 0.87 MG/DL eGFR AMER. (test cod e = 80853) 87 ML/MIN/1.73 eGFR NON- AMER. (test code = 78563) 75 ML/MIN/1.73 CALC BUN/CREAT (test code = [...] code = 2219) 8 U/L Delfino OrtaURIC [id number] 00:00:00* Test Item Value Reference Range Interpretation Comme nts URIC ACID (test code = 2233) 8.5 MG/DL Delfino OrtaVITAMIN [id number] 00:00:00* Test Item Value Reference Range Interpretation Comme [facility] VITAMIN B-12 (test code = 2840) 335 PG/ML Delfino OrtaCBC W/AUTO [id number] 00:00:00* Test Item Value Reference Range Interpretation [...] code = 1015) 212 K/UL Delfino OrtaLIPID [id number] 00:00:00* Test Item Value Reference Range Interpretation Comme nts CHOLESTEROL (test code = 2210) 141 MG/DL TRIGLYCERIDES (test code = 2232) 71 MG/DL HDL CHOLESTEROL (test code = 2220) 69 MG/DL CALC LDL CHOL (test code = 2237) 58 MG/DL RISK RATIO LDL/HDL (test cod e = 2238) 0.84 RATIO Delfino OrtaCOMPREHENSIVE METABOLIC [id number] 00:00:00* Test Item Value Reference Range Interpretation Comme nts GLUCOSE (test code = 2217) 95 MG/DL BUN (test code = 2208) 21 MG/DL CREATININE (test code = 2214) 0.87 MG/DL eGFR AMER. (test cod e = 54710) 87 ML/MIN/1.73 eGFR NON- AMER. (test code = 52607) 75 ML/MIN/1.73 CALC BUN/CREAT (test code = [...] code = 2219) 8 U/L Delfino OrtaURIC [id number] 00:00:00* Test Item Value Reference Range Interpretation Comme [place] URIC ACID (test code = 2233) 8.5 MG/DL Delfino OrtaVITAMIN [id number] 00:00:00* Test Item Value Reference Range Interpretation Comme [facility] VITAMIN B-12 (test code = 2840) 335 PG/ML Delfino OrtaCBC W/AUTO [id number] 00:00:00* Test Item Value Reference Range Interpretation [...] code = 1015) 212 K/UL Delfino OrtaLIPID [id number] 00:00:00* Test Item Value Reference Range Interpretation Comme nts CHOLESTEROL (test code = 2210) 141 MG/DL TRIGLYCERIDES (test code = 2232) 71 MG/DL HDL CHOLESTEROL (test code = 2220) 69 MG/DL CALC LDL CHOL (test code = 2237) 58 MG/DL RISK RATIO LDL/HDL (test cod e = 2238) 0.84 RATIO Delfino OrtaCOMPREHENSIVE METABOLIC [id number] 00:00:00* Test Item Value Reference Range Interpretation Comme nts GLUCOSE (test code = 2217) 95 MG/DL BUN (test code = 2208) 21 MG/DL CREATININE (test code = 2214) 0.87 MG/DL eGFR AMER. (test cod e = 94751) 87 ML/MIN/1.73 eGFR NON- AMER. (test code = 62679) 75 ML/MIN/1.73 CALC BUN/CREAT (test code = [...] code = 2219) 8 U/L Delfino OrtaURIC [id number] 00:00:00* Test Item Value Reference Range Interpretation Comme car[place] URIC ACID (test code = 2233) 8.5 MG/DL Delfino OrtaVITAMIN [id number] 00:00:00* Test Item Value Reference Range Interpretation Comme [place] VITAMIN B-12 (test code = 2840) 335 PG/ML Delfino OrtaCBC W/AUTO [id number] 00:00:00* Test Item Value Reference Range Interpretation [...] code = 1015) 212 K/UL Delfino Schumacher YouLIPID [id number] 00:00:00* Test Item Value Reference Range Interpretation Comme nts CHOLESTEROL (test code = 2210) 141 MG/DL TRIGLYCERIDES (test code = 2232) 71 MG/DL HDL CHOLESTEROL (test code = 2220) 69 MG/DL CALC LDL CHOL (test code = 2237) 58 MG/DL RISK RATIO LDL/HDL (test cod e = 2238) 0.84 RATIO Delfino Schumacher YouCOMPREHENSIVE METABOLIC [id number] 00:00:00* Test Item Value Reference Range Interpretation Comme nts GLUCOSE (test code = 2217) 95 MG/DL BUN (test code = 2208) 21 MG/DL CREATININE (test code = 2214) 0.87 MG/DL eGFR AMER. (test cod e = 81149) 87 ML/MIN/1.73 eGFR NON- AMER. (test code = 87887) 75 ML/MIN/1.73 CALC BUN/CREAT (test code = [...] code = 2219) 8 U/L Delfino OrtaURIC [id number] 00:00:00* Test Item Value Reference Range Interpretation Comme [facility] URIC ACID (test code = 2233) 8.5 MG/DL Delfino OrtaVITAMIN [id number] 00:00:00* Test Item Value Reference Range Interpretation Comme car[facility] VITAMIN B-12 (test code = 2840) 335 PG/ML Delfino OrtaCBC W/AUTO [id number] 00:00:00* Test Item Value Reference Range Interpretation [...] code = 1015) 212 K/UL Delfino OrtaLIPID [id number] 00:00:00* Test Item Value Reference Range Interpretation Comme nts CHOLESTEROL (test code = 2210) 141 MG/DL TRIGLYCERIDES (test code = 2232) 71 MG/DL HDL CHOLESTEROL (test code = 2220) 69 MG/DL CALC LDL CHOL (test code = 2237) 58 MG/DL RISK RATIO LDL/HDL (test cod e = 2238) 0.84 RATIO Delfino OrtaCOMPREHENSIVE METABOLIC [id number] 00:00:00* Test Item Value Reference Range Interpretation Comme nts GLUCOSE (test code = 2217) 95 MG/DL BUN (test code = 2208) 21 MG/DL CREATININE (test code = 2214) 0.87 MG/DL eGFR AMER. (test cod e = 98929) 87 ML/MIN/1.73 eGFR NON- AMER. (test code = 13092) 75 ML/MIN/1.73 CALC BUN/CREAT (test code = [...] code = 2219) 8 U/L Delfino OrtaURIC [id number] 00:00:00* Test Item Value Reference Range Interpretation Comme [facility] URIC ACID (test code = 2233) 8.5 MG/DL Delfino OrtaVITAMIN [id number] 00:00:00* Test Item Value Reference Range Interpretation Comme [facility] VITAMIN B-12 (test code = 2840) 335 PG/ML Delfino OrtaCBC W/AUTO [id number] 00:00:00* Test Item Value Reference Range Interpretation [...] code = 1015) 212 K/UL Delfino OrtaLIPID [id number] 00:00:00* Test Item Value Reference Range Interpretation Comme nts CHOLESTEROL (test code = 2210) 141 MG/DL TRIGLYCERIDES (test code = 2232) 71 MG/DL HDL CHOLESTEROL (test code = 2220) 69 MG/DL CALC LDL CHOL (test code = 2237) 58 MG/DL RISK RATIO LDL/HDL (test cod e = 2238) 0.84 RATIO Delfino OrtaCOMPREHENSIVE METABOLIC [id number] 00:00:00* Test Item Value Reference Range Interpretation Comme nts GLUCOSE (test code = 2217) 95 MG/DL BUN (test code = 2208) 21 MG/DL CREATININE (test code = 2214) 0.87 MG/DL eGFR AMER. (test cod e = 11076) 87 ML/MIN/1.73 eGFR NON- AMER. (test code = 11047) 75 ML/MIN/1.73 CALC BUN/CREAT (test code = [...] code = 2219) 8 U/L Delfino OrtaURIC [id number] 00:00:00* Test Item Value Reference Range Interpretation Comme nts URIC ACID (test code = 2233) 8.5 MG/DL Delfino OratVITAMIN [id number] 00:00:00* Test Item Value Reference Range Interpretation Comme nts VITAMIN B-12 (test code = 2840) 335 PG/ML Delfino OrtaCBC W/AUTO [id number] 00:00:00* Test Item Value Reference Range Interpretation [...] = 1015) 212 K/UL Delfino Schumacher AustinLIPID [id number] 00:00:00* Test Item Value Reference Range Interpretation Comme nts CHOLESTEROL (test code = 2210) 141 MG/DL TRIGLYCERIDES (test code = 2232) 71 MG/DL HDL CHOLESTEROL (test code = 2220) 69 MG/DL CALC LDL CHOL (test code = 2237) 58 MG/DL RISK RATIO LDL/HDL (test cod e = 2238) 0.84 RATIO Delfino Schumacher AustinCD4/CD8 LYMPHOCYTE [id number] 00:00:00* Test Item Value Reference Range Interpretation Comme nts ABSOLUTE LYMPHOCYTES (test c ode = 09038) 807 PERUL PERCENT CD4 (test code = 29986) 13.1 % ABSOLUTE CD4 (test code = 46689) 105 PERUL PERCENT CD8 (test code = 16263) 61.6 % ABSOLUTE CD8 (test code = 00966) 497 PERUL CD4/CD8 RATIO (test code = 48862) 0.21 Delfino Schumacher AustinCD4/CD8 LYMPHOCYTE [id number] 00:00:00* Test Item Value Reference Range Interpretation Comme nts ABSOLUTE LYMPHOCYTES (test c ode = 73091) 807 PERUL PERCENT CD4 (test code = 12589) 13.1 % ABSOLUTE CD4 (test code = 16981) 105 PERUL PERCENT CD8 (test code = 98911) 61.6 % ABSOLUTE CD8 (test code = 56698) 497 PERUL CD4/CD8 RATIO (test code = 11758) 0.21 CD4/CD8 LYMPHOCYTE [id number] 00:00:00* Test Item Value Reference Range Interpretation Comme nts ABSOLUTE LYMPHOCYTES (test c ode = 47842) 807 PERUL PERCENT CD4 (test code = 70848) 13.1 % ABSOLUTE CD4 (test code = 93178) 105 PERUL PERCENT CD8 (test code = 60149) 61.6 % ABSOLUTE CD8 (test code = 22226) 497 PERUL CD4/CD8 RATIO (test code = 37779) 0.21 Delfino Schumacher AustinCD4/CD8 LYMPHOCYTE [id number] 00:00:00* Test Item Value Reference Range Interpretation Comme nts ABSOLUTE LYMPHOCYTES (test c ode = 23476) 807 PERUL PERCENT CD4 (test code = 00741) 13.1 % ABSOLUTE CD4 (test code = 28085) 105 PERUL PERCENT CD8 (test code = 25874) 61.6 % ABSOLUTE CD8 (test code = 85281) 497 PERUL CD4/CD8 RATIO (test code = 79191) 0.21 CD4/CD8 LYMPHOCYTE [id number] 00:00:00* Test Item Value Reference Range Interpretation Comme nts ABSOLUTE LYMPHOCYTES (test c ode = 97319) 807 PERUL PERCENT CD4 (test code = 57962) 13.1 % ABSOLUTE CD4 (test code = 71416) 105 PERUL PERCENT CD8 (test code = 70373) 61.6 % ABSOLUTE CD8 (test code = 81346) 497 PERUL CD4/CD8 RATIO (test code = 63355) 0.21 Delfino Schumacher AustinCD4/CD8 LYMPHOCYTE [id number] 00:00:00* Test Item Value Reference Range Interpretation Comme nts ABSOLUTE LYMPHOCYTES (test c ode = 52767) 807 PERUL PERCENT CD4 (test code = 55236) 13.1 % ABSOLUTE CD4 (test code = 66256) 105 PERUL PERCENT CD8 (test code = 43227) 61.6 % ABSOLUTE CD8 (test code = 59195) 497 PERUL CD4/CD8 RATIO (test code = 86611) 0.21 CD4/CD8 LYMPHOCYTE [id number] 00:00:00* Test Item Value Reference Range Interpretation Comme nts ABSOLUTE LYMPHOCYTES (test c ode = 53213) 807 PERUL PERCENT CD4 (test code = 09125) 13.1 % ABSOLUTE CD4 (test code = 49206) 105 PERUL PERCENT CD8 (test code = 39651) 61.6 % ABSOLUTE CD8 (test code = 10583) 497 PERUL CD4/CD8 RATIO (test code = 74604) 0.21 Delfino Schumacher AustinCD4/CD8 LYMPHOCYTE [id number] 00:00:00* Test Item Value Reference Range Interpretation Comme nts ABSOLUTE LYMPHOCYTES (test c ode = 12641) 807 PERUL PERCENT CD4 (test code = 98233) 13.1 % ABSOLUTE CD4 (test code = 92452) 105 PERUL PERCENT CD8 (test code = 35036) 61.6 % ABSOLUTE CD8 (test code = 40525) 497 PERUL CD4/CD8 RATIO (test code = 01425) 0.21 CD4/CD8 LYMPHOCYTE [id number] 00:00:00* Test Item Value Reference Range Interpretation Comme nts ABSOLUTE LYMPHOCYTES (test c ode = 75025) 807 PERUL PERCENT CD4 (test code = 76740) 13.1 % ABSOLUTE CD4 (test code = 96271) 105 PERUL PERCENT CD8 (test code = 84929) 61.6 % ABSOLUTE CD8 (test code = 95401) 497 PERUL CD4/CD8 RATIO (test code = 02517) 0.21 Delfino Schumacher AustinCD4/CD8 LYMPHOCYTE [id number] 00:00:00* Test Item Value Reference Range Interpretation Comme nts ABSOLUTE LYMPHOCYTES (test c ode = 03650) 807 PERUL PERCENT CD4 (test code = 51751) 13.1 % ABSOLUTE CD4 (test code = 94604) 105 PERUL PERCENT CD8 (test code = 93448) 61.6 % ABSOLUTE CD8 (test code = 53587) 497 PERUL CD4/CD8 RATIO (test code = 16026) 0.21 Delfino Schumacher AustinCD4/CD8 LYMPHOCYTE [id number] 00:00:00* Test Item Value Reference Range Interpretation Comme nts ABSOLUTE LYMPHOCYTES (test c ode = 53811) 807 PERUL PERCENT CD4 (test code = 93214) 13.1 % ABSOLUTE CD4 (test code = 12457) 105 PERUL PERCENT CD8 (test code = 78246) 61.6 % ABSOLUTE CD8 (test code = 08801) 497 PERUL CD4/CD8 RATIO (test code = 63151) 0.21 Delfino Schumacher AustinCD4/CD8 LYMPHOCYTE [id number] 00:00:00* Test Item Value Reference Range Interpretation Comme nts ABSOLUTE LYMPHOCYTES (test c ode = 59332) 807 PERUL PERCENT CD4 (test code = 25823) 13.1 % ABSOLUTE CD4 (test code = 31591) 105 PERUL PERCENT CD8 (test code = 31576) 61.6 % ABSOLUTE CD8 (test code = 79575) 497 PERUL CD4/CD8 RATIO (test code = 81280) 0.21 Delfino Schumacher AustinCD4/CD8 LYMPHOCYTE [id number] 00:00:00* Test Item Value Reference Range Interpretation Comme nts ABSOLUTE LYMPHOCYTES (test c ode = 33745) 807 PERUL PERCENT CD4 (test code = 59758) 13.1 % ABSOLUTE CD4 (test code = 69013) 105 PERUL PERCENT CD8 (test code = 94795) 61.6 % ABSOLUTE CD8 (test code = 96372) 497 PERUL CD4/CD8 RATIO (test code = 56903) 0.21 Delfino Schumacher AustinCD4/CD8 LYMPHOCYTE [id number] 00:00:00* Test Item Value Reference Range Interpretation Comme nts ABSOLUTE LYMPHOCYTES (test c ode = 16448) 807 PERUL PERCENT CD4 (test code = 06163) 13.1 % ABSOLUTE CD4 (test code = 09448) 105 PERUL PERCENT CD8 (test code = 30112) 61.6 % ABSOLUTE CD8 (test code = 58017) 497 PERUL CD4/CD8 RATIO (test code = 46291) 0.21 Delfino Schumacher AustinCD4/CD8 LYMPHOCYTE [id number] 00:00:00* Test Item Value Reference Range Interpretation Comme nts ABSOLUTE LYMPHOCYTES (test c ode = 15527) 807 PERUL PERCENT CD4 (test code = 74395) 13.1 % ABSOLUTE CD4 (test code = 87678) 105 PERUL PERCENT CD8 (test code = 62049) 61.6 % ABSOLUTE CD8 (test code = 15189) 497 PERUL CD4/CD8 RATIO (test code = 01841) 0.21 Delfino Schumacher AustinCD4/CD8 LYMPHOCYTE [id number] 00:00:00* Test Item Value Reference Range Interpretation Comme nts ABSOLUTE LYMPHOCYTES (test c ode = 91000) 807 PERUL PERCENT CD4 (test code = 50548) 13.1 % ABSOLUTE CD4 (test code = 28919) 105 PERUL PERCENT CD8 (test code = 71390) 61.6 % ABSOLUTE CD8 (test code = 40281) 497 PERUL CD4/CD8 RATIO (test code = 02002) 0.21 Delfino Schumacher AustinCD4/CD8 LYMPHOCYTE [id number] 00:00:00* Test Item Value Reference Range Interpretation Comme nts ABSOLUTE LYMPHOCYTES (test c ode = 60728) 807 PERUL PERCENT CD4 (test code = 81515) 13.1 % ABSOLUTE CD4 (test code = 03059) 105 PERUL PERCENT CD8 (test code = 25546) 61.6 % ABSOLUTE CD8 (test code = 12304) 497 PERUL CD4/CD8 RATIO (test code = 24837) 0.21 Delfino Schumacher AustinCD4/CD8 LYMPHOCYTE [id number] 00:00:00* Test Item Value Reference Range Interpretation Comme nts ABSOLUTE LYMPHOCYTES (test c ode = 94549) 807 PERUL PERCENT CD4 (test code = 42100) 13.1 % ABSOLUTE CD4 (test code = 93609) 105 PERUL PERCENT CD8 (test code = 00496) 61.6 % ABSOLUTE CD8 (test code = 17724) 497 PERUL CD4/CD8 RATIO (test code = 04985) 0.21 Delfino Schumacher AustinCD4/CD8 LYMPHOCYTE [id number] 00:00:00* Test Item Value Reference Range Interpretation Comme nts ABSOLUTE LYMPHOCYTES (test c ode = 25134) 807 PERUL PERCENT CD4 (test code = 00187) 13.1 % ABSOLUTE CD4 (test code = 65655) 105 PERUL PERCENT CD8 (test code = 85088) 61.6 % ABSOLUTE CD8 (test code = 12892) 497 PERUL CD4/CD8 RATIO (test code = 78344) 0.21 Delfino Schumacher AustinCD4/CD8 LYMPHOCYTE [id number] 00:00:00* Test Item Value Reference Range Interpretation Comme nts ABSOLUTE LYMPHOCYTES (test c ode = 05428) 807 PERUL PERCENT CD4 (test code = 88058) 13.1 % ABSOLUTE CD4 (test code = 46227) 105 PERUL PERCENT CD8 (test code = 23962) 61.6 % ABSOLUTE CD8 (test code = 07831) 497 PERUL CD4/CD8 RATIO (test code = 33853) 0.21 Delfino Schumacher AustinCD4/CD8 LYMPHOCYTE [id number] 00:00:00* Test Item Value Reference Range Interpretation Comme nts ABSOLUTE LYMPHOCYTES (test c ode = 17234) 807 PERUL PERCENT CD4 (test code = 26915) 13.1 % ABSOLUTE CD4 (test code = 29491) 105 PERUL PERCENT CD8 (test code = 50077) 61.6 % ABSOLUTE CD8 (test code = 62048) 497 PERUL CD4/CD8 RATIO (test code = 19939) 0.21 Delfino Schumacher AustinCD4/CD8 LYMPHOCYTE [id number] 00:00:00* Test Item Value Reference Range Interpretation Comme nts ABSOLUTE LYMPHOCYTES (test c ode = 67113) 807 PERUL PERCENT CD4 (test code = 33335) 13.1 % ABSOLUTE CD4 (test code = 95235) 105 PERUL PERCENT CD8 (test code = 29059) 61.6 % ABSOLUTE CD8 (test code = 97465) 497 PERUL CD4/CD8 RATIO (test code = 41210) 0.21 Delfino Schumacher AustinCD4/CD8 LYMPHOCYTE [id number] 00:00:00* Test Item Value Reference Range Interpretation Comme nts ABSOLUTE LYMPHOCYTES (test c ode = 24952) 807 PERUL PERCENT CD4 (test code = 68157) 13.1 % ABSOLUTE CD4 (test code = 07475) 105 PERUL PERCENT CD8 (test code = 66140) 61.6 % ABSOLUTE CD8 (test code = 46069) 497 PERUL CD4/CD8 RATIO (test code = 50935) 0.21 Delfino Schumacher AustinCD4/CD8 LYMPHOCYTE [id number] 00:00:00* Test Item Value Reference Range Interpretation Comme nts ABSOLUTE LYMPHOCYTES (test c ode = 99385) 807 PERUL PERCENT CD4 (test code = 38548) 13.1 % ABSOLUTE CD4 (test code = 90156) 105 PERUL PERCENT CD8 (test code = 25349) 61.6 % ABSOLUTE CD8 (test code = 34432) 497 PERUL CD4/CD8 RATIO (test code = 99510) 0.21 Delfino Schumacher AustinCD4/CD8 LYMPHOCYTE [id number] 00:00:00* Test Item Value Reference Range Interpretation Comme nts ABSOLUTE LYMPHOCYTES (test c ode = 42476) 807 PERUL PERCENT CD4 (test code = 54764) 13.1 % ABSOLUTE CD4 (test code = 32203) 105 PERUL PERCENT CD8 (test code = 95055) 61.6 % ABSOLUTE CD8 (test code = 35441) 497 PERUL CD4/CD8 RATIO (test code = 05340) 0.21 Delfino Schumacher AustinCD4/CD8 LYMPHOCYTE [id number] 00:00:00* Test Item Value Reference Range Interpretation Comme nts ABSOLUTE LYMPHOCYTES (test c ode = 38572) 807 PERUL PERCENT CD4 (test code = 76265) 13.1 % ABSOLUTE CD4 (test code = 81668) 105 PERUL PERCENT CD8 (test code = 50287) 61.6 % ABSOLUTE CD8 (test code = 70710) 497 PERUL CD4/CD8 RATIO (test code = 90229) 0.21 Delfino Schumacher AustinCD4/CD8 LYMPHOCYTE [id number] 00:00:00* Test Item Value Reference Range Interpretation Comme nts ABSOLUTE LYMPHOCYTES (test c ode = 85888) 807 PERUL PERCENT CD4 (test code = 43514) 13.1 % ABSOLUTE CD4 (test code = 02206) 105 PERUL PERCENT CD8 (test code = 54720) 61.6 % ABSOLUTE CD8 (test code = 60752) 497 PERUL CD4/CD8 RATIO (test code = 29529) 0.21 Delfino Schumacher AustinCD4/CD8 LYMPHOCYTE [id number] 00:00:00* Test Item Value Reference Range Interpretation Comme nts ABSOLUTE LYMPHOCYTES (test c ode = 89635) 807 PERUL PERCENT CD4 (test code = 04309) 13.1 % ABSOLUTE CD4 (test code = 70918) 105 PERUL PERCENT CD8 (test code = 33926) 61.6 % ABSOLUTE CD8 (test code = 49086) 497 PERUL CD4/CD8 RATIO (test code = 53446) 0.21 Delfino F AustinVITAMIN [id number] 00:00:00* Test Item Value Reference Range Interpretation Comme nts VITAMIN B-12 (test code = 2840) 358 PG/ML Delfino Schumacher AustinVITAMIN [id number] 00:00:00* Test Item Value Reference Range Interpretation Comme nts VITAMIN B-12 (test code = 2840) 358 PG/ML VITAMIN [id number] 00:00:00* Test Item Value Reference Range Interpretation Comme nts VITAMIN B-12 (test code = 2840) 358 PG/ML Delfino Schumacher AustinVITAMIN [id number] 00:00:00* Test Item Value Reference Range Interpretation Comme nts VITAMIN B-12 (test code = 2840) 358 PG/ML VITAMIN [id number] 00:00:00* Test Item Value Reference Range Interpretation Comme nts VITAMIN B-12 (test code = 2840) 358 PG/ML Delfino Schumacher AustinVITAMIN [id number] 00:00:00* Test Item Value Reference Range Interpretation Comme nts VITAMIN B-12 (test code = 2840) 358 PG/ML VITAMIN [id number] 00:00:00* Test Item Value Reference Range Interpretation Comme nts VITAMIN B-12 (test code = 2840) 358 PG/ML Delfino Schumacher AustinVITAMIN [id number] 00:00:00* Test Item Value Reference Range Interpretation Comme nts VITAMIN B-12 (test code = 2840) 358 PG/ML VITAMIN [id number] 00:00:00* Test Item Value Reference Range Interpretation Comme nts VITAMIN B-12 (test code = 2840) 358 PG/ML Delfino Schumacher AustinVITAMIN [id number] 00:00:00* Test Item Value Reference Range Interpretation Comme nts VITAMIN B-12 (test code = 2840) 358 PG/ML Delfino Schumacher AustinVITAMIN [id number] 00:00:00* Test Item Value Reference Range Interpretation Comme nts VITAMIN B-12 (test code = 2840) 358 PG/ML Delfino Schumacher AustinVITAMIN [id number] 00:00:00* Test Item Value Reference Range Interpretation Comme nts VITAMIN B-12 (test code = 2840) 358 PG/ML Delfino Schuamcher AustinVITAMIN [id number] 00:00:00* Test Item Value Reference Range Interpretation Comme nts VITAMIN B-12 (test code = 2840) 358 PG/ML Delfino Schumacher AustinVITAMIN [id number] 00:00:00* Test Item Value Reference Range Interpretation Comme nts VITAMIN B-12 (test code = 2840) 358 PG/ML Delfino Schumacher AustinVITAMIN [id number] 00:00:00* Test Item Value Reference Range Interpretation Comme nts VITAMIN B-12 (test code = 2840) 358 PG/ML Delfino Schumacher AustinVITAMIN [id number] 00:00:00* Test Item Value Reference Range Interpretation Comme nts VITAMIN B-12 (test code = 2840) 358 PG/ML Delfino Schumacher AustinVITAMIN [id number] 00:00:00* Test Item Value Reference Range Interpretation Comme nts VITAMIN B-12 (test code = 2840) 358 PG/ML Delfino Schumacher AustinVITAMIN [id number] 00:00:00* Test Item Value Reference Range Interpretation Comme nts VITAMIN B-12 (test code = 2840) 358 PG/ML Delfino Schumacher AustinVITAMIN [id number] 00:00:00* Test Item Value Reference Range Interpretation Comme nts VITAMIN B-12 (test code = 2840) 358 PG/ML Delfino Schumacher AustinVITAMIN [id number] 00:00:00* Test Item Value Reference Range Interpretation Comme nts VITAMIN B-12 (test code = 2840) 358 PG/ML Delfino Schumacher AustinVITAMIN [id number] 00:00:00* Test Item Value Reference Range Interpretation Comme nts VITAMIN B-12 (test code = 2840) 358 PG/ML Delfino Schumacher AustinVITAMIN [id number] 00:00:00* Test Item Value Reference Range Interpretation Comme nts VITAMIN B-12 (test code = 2840) 358 PG/ML Delfino Schumacher AustinVITAMIN [id number] 00:00:00* Test Item Value Reference Range Interpretation Comme nts VITAMIN B-12 (test code = 2840) 358 PG/ML Delfino Schumacher AustinVITAMIN [id number] 00:00:00* Test Item Value Reference Range Interpretation Comme nts VITAMIN B-12 (test code = 2840) 358 PG/ML Delfino Schumacher AustinVITAMIN [id number] 00:00:00* Test Item Value Reference Range Interpretation Comme nts VITAMIN B-12 (test code = 2840) 358 PG/ML Delfino Schumacher AustinVITAMIN [id number] 00:00:00* Test Item Value Reference Range Interpretation Comme nts VITAMIN B-12 (test code = 2840) 358 PG/ML Delfino Schumacher AustinVITAMIN [id number] 00:00:00* Test Item Value Reference Range Interpretation Comme nts VITAMIN B-12 (test code = 2840) 358 PG/ML Delfino Schumacher AustinVITAMIN [id number] 00:00:00* Test Item Value Reference Range Interpretation [...] 32 UG/DL UNSATURATED IBC (test code = 42967) 326 UG/DL CALC TOTAL IBC (test code [...] 32 UG/DL UNSATURATED IBC (test code = 77867) 326 UG/DL CALC TOTAL IBC (test code [...] 32 UG/DL UNSATURATED IBC (test code = 50971) 326 UG/DL CALC TOTAL IBC (test code [...] 32 UG/DL UNSATURATED IBC (test code = 67839) 326 UG/DL CALC TOTAL IBC (test code = 2077) 358 UG/DL CALC % IRON SAT (test code = 2079) 9 % Delfino F YouCBC W/AUTO DIFF WITH PLATELETS [ADDED]2018-09-09 00:00:00* [...] 32 UG/DL UNSATURATED IBC (test code = 14116) 326 UG/DL CALC TOTAL IBC (test code [...] 32 UG/DL UNSATURATED IBC (test code = 73126) 326 UG/DL CALC TOTAL IBC (test code [...] 32 UG/DL UNSATURATED IBC (test code = 80730) 326 UG/DL CALC TOTAL IBC (test code = 7) 358 UG/DL CALC % IRON SAT (test code = 9) 9 % Delfino OrtaIRON BINDING CAPACITY AND IRON AND % SATURATION [ADDED] 2018-09-09 00:00:00* Test Item Value Reference Range Interpretation Comme nts IRON, SERUM (test code = 2222) 32 UG/DL UNSATURATED IBC (test code = 74097) 326 UG/DL CALC TOTAL IBC (test code [...] 32 UG/DL UNSATURATED IBC (test code = 58567) 326 UG/DL CALC TOTAL IBC (test code = 2077) 358 UG/DL CALC % IRON SAT (test code = 2079) 9 % Delfino Schumacher YouFERRITIN [ADDED]2018-09-09 00:00:00* Test Item Value Reference Range Interpretation Comme nts FERRITIN (test code = 2075) 19 NG/ML Delfino Schumacher AustinVITAMIN B 12 AND FOLIC ACID [ADDED]2018-09-09 00:00:00* Test Item Value Reference Range Interpretation Comme nts VITAMIN B-12 (test code = 2840) 166 PG/ML FOLIC ACID (test code = 2695) 9.9 UG/L TRANSFERRIN [ADDED]2018-09-09 00:00:00* Test Item Value Reference [...] (test code = 1016) (NOTE) Delfino Endy AustinIRON BINDING CAPACITY AND IRON AND % SATURATION [ADDED] 2018-09-09 00:00:00* Test Item Value Reference Range Interpretation Comme nts IRON, SERUM (test code = 2222) 32 UG/DL UNSATURATED IBC (test code = 75549) 326 UG/DL CALC TOTAL IBC (test code [...] (test code = 2074) 19 NG/ML Delfino F AustinIRON BINDING CAPACITY AND IRON AND % SATURATION [ADDED] 2018-09-09 00:00:00* Test Item Value Reference Range Interpretation Comme nts IRON, SERUM (test code = 2222) 32 UG/DL UNSATURATED IBC (test code = 46496) 326 UG/DL CALC TOTAL IBC (test code [...] 32 UG/DL UNSATURATED IBC (test code = 02105) 326 UG/DL CALC TOTAL IBC (test code [...] 32 UG/DL UNSATURATED IBC (test code = 81265) 326 UG/DL CALC TOTAL IBC (test code [...] 32 UG/DL UNSATURATED IBC (test code = 33804) 326 UG/DL CALC TOTAL IBC (test code [...] 32 UG/DL UNSATURATED IBC (test code = 96028) 326 UG/DL CALC TOTAL IBC (test code [...] Item Value Reference Range Interpretation Comme carlito IRON, SERUM (test code = 2222) 32 UG/DL UNSATURATED IBC (test code = 94495) 326 UG/DL CALC TOTAL IBC (test code [...] 32 UG/DL UNSATURATED IBC (test code = 98889) 326 UG/DL CALC TOTAL IBC (test code [...] 32 UG/DL UNSATURATED IBC (test code = 30968) 326 UG/DL CALC TOTAL IBC (test code [...] 32 UG/DL UNSATURATED IBC (test code = 53384) 326 UG/DL CALC TOTAL IBC (test code [...] 32 UG/DL UNSATURATED IBC (test code = 33107) 326 UG/DL CALC TOTAL IBC (test code [...] 32 UG/DL UNSATURATED IBC (test code = 04008) 326 UG/DL CALC TOTAL IBC (test code [...] 32 UG/DL UNSATURATED IBC (test code = 39133) 326 UG/DL CALC TOTAL IBC (test code [...] 32 UG/DL UNSATURATED IBC (test code = 38872) 326 UG/DL CALC TOTAL IBC (test code [...] 32 UG/DL UNSATURATED IBC (test code = 03207) 326 UG/DL CALC TOTAL IBC (test code [...] 32 UG/DL UNSATURATED IBC (test code = 09216) 326 UG/DL CALC TOTAL IBC (test code [...] 32 UG/DL UNSATURATED IBC (test code = 57649) 326 UG/DL CALC TOTAL IBC (test code [...] 32 UG/DL UNSATURATED IBC (test code = 84304) 326 UG/DL CALC TOTAL IBC (test code [...] 32 UG/DL UNSATURATED IBC (test code = 78428) 326 UG/DL CALC TOTAL IBC (test code [...] = 1016) (NOTE) Delfino Schumacher AustinCBC W/AUTO [id number] 00:00:00* Test Item Value Reference Range Interpretation [...] = 1015) 230 K/UL Delfino OrtaCOMPREHENSIVE METABOLIC [id number] 00:00:00* Test Item Value Reference Range Interpretation Comme nts GLUCOSE (test code = 2217) 84 MG/DL BUN (test code = 2208) 12 MG/DL CREATININE (test code = 2214) 1.02 MG/DL eGFR AMER. (test cod e = 20638) 72 ML/MIN/1.73 eGFR NON- AMER. (test code = 61687) 62 ML/MIN/1.73 CALC BUN/CREAT (test code = [...] code = 2219) 9 U/L Delfino OrtaURIC [id number] 00:00:00* Test Item Value Reference Range Interpretation Comme nts URIC ACID (test code = 2233) 7.8 MG/DL Delfino Schumacher YouCBC W/AUTO [id number] 00:00:00* Test Item Value Reference Range Interpretation [...] 1015) 230 K/UL Delfino Schumacher YouCOMPREHENSIVE METABOLIC [id number] 00:00:00* Test Item Value Reference Range Interpretation Comme nts GLUCOSE (test code = 2217) 84 MG/DL BUN (test code = 2208) 12 MG/DL CREATININE (test code = 2214) 1.02 MG/DL eGFR AMER. (test cod e = 49643) 72 ML/MIN/1.73 eGFR NON- AMER. (test code = 33357) 62 ML/MIN/1.73 CALC BUN/CREAT (test code = [...] code = 2219) 9 U/L Delfino OrtaURIC [id number] 00:00:00* Test Item Value Reference Range Interpretation Comme nts URIC ACID (test code = 2233) 7.8 MG/DL Delfino Schumacher [place] [id number] 00:00:00* Test Item Value Reference Range Interpretation Comme nts URIC ACID (test code = 2233) 7.8 MG/DL CBC W/AUTO [id number] 00:00:00* Test Item Value Reference Range Interpretation [...] code = 1015) 230 K/UL Delfino OrtaURIC [id number] 00:00:00* Test Item Value Reference Range Interpretation Comme nts URIC ACID (test code = 2233) 7.8 MG/DL Delfino OrtaCBC W/AUTO [id number] 00:00:00* Test Item Value Reference Range Interpretation [...] code = 1015) 230 K/UL COMPREHENSIVE METABOLIC [id number] 00:00:00* Test Item Value Reference Range Interpretation Comme nts GLUCOSE (test code = 2217) 84 MG/DL BUN (test code = 2208) 12 MG/DL CREATININE (test code = 2214) 1.02 MG/DL eGFR AMER. (test cod e = 65784) 72 ML/MIN/1.73 eGFR NON- AMER. (test code = 81505) 62 ML/MIN/1.73 CALC BUN/CREAT (test code = [...] code = 2219) 9 U/L CBC W/AUTO [id number] 00:00:00* Test Item Value Reference Range Interpretation [...] = 1015) 230 K/UL Delfino OrtaCOMPREHENSIVE METABOLIC [id number] 00:00:00* Test Item Value Reference Range Interpretation Comme nts GLUCOSE (test code = 2217) 84 MG/DL BUN (test code = 2208) 12 MG/DL CREATININE (test code = 2214) 1.02 MG/DL eGFR AMER. (test cod e = 16739) 72 ML/MIN/1.73 eGFR NON- AMER. (test code = 23097) 62 ML/MIN/1.73 CALC BUN/CREAT (test code = [...] code = 2219) 9 U/L Delfino OrtaURIC [id number] 00:00:00* Test Item Value Reference Range Interpretation Comme nts URIC ACID (test code = 2233) 7.8 MG/DL URIC [id number] 00:00:00* Test Item Value Reference Range Interpretation Comme nts URIC ACID (test code = 2233) 7.8 MG/DL Delfino Schumacher YouCBC W/AUTO [id number] 00:00:00* Test Item Value Reference Range Interpretation [...] code = 1015) 230 K/UL COMPREHENSIVE METABOLIC [id number] 00:00:00* Test Item Value Reference Range Interpretation Comme nts GLUCOSE (test code = 2217) 84 MG/DL BUN (test code = 2208) 12 MG/DL CREATININE (test code = 2214) 1.02 MG/DL eGFR AMER. (test cod e = 96466) 72 ML/MIN/1.73 eGFR NON- AMER. (test code = 58057) 62 ML/MIN/1.73 CALC BUN/CREAT (test code = [...] code = 2219) 9 U/L CBC W/AUTO [id number] 00:00:00* Test Item Value Reference Range Interpretation [...] = 1015) 230 K/UL Delfino OrtaCOMPREHENSIVE METABOLIC [id number] 00:00:00* Test Item Value Reference Range Interpretation Comme nts GLUCOSE (test code = 2217) 84 MG/DL BUN (test code = 2208) 12 MG/DL CREATININE (test code = 2214) 1.02 MG/DL eGFR AMER. (test cod e = 04758) 72 ML/MIN/1.73 eGFR NON- AMER. (test code = 86629) 62 ML/MIN/1.73 CALC BUN/CREAT (test code = [...] code = 2219) 9 U/L Delfino OrtaURIC [id number] 00:00:00* Test Item Value Reference Range Interpretation Comme nts URIC ACID (test code = 2233) 7.8 MG/DL CBC W/AUTO [id number] 00:00:00* Test Item Value Reference Range Interpretation [...] (test code = 1015) 230 K/UL URIC [id number] 00:00:00* Test Item Value Reference Range Interpretation Comme nts URIC ACID (test code = 2233) 7.8 MG/DL Delfino F AustinCOMPREHENSIVE METABOLIC [id number] 00:00:00* Test Item Value Reference Range Interpretation Comme nts GLUCOSE (test code = 2217) 84 MG/DL BUN (test code = 2208) 12 MG/DL CREATININE (test code = 2214) 1.02 MG/DL eGFR AMER. (test cod e = 97604) 72 ML/MIN/1.73 eGFR NON- AMER. (test code = 16735) 62 ML/MIN/1.73 CALC BUN/CREAT (test code = [...] code = 2219) 9 U/L CBC W/AUTO [id number] 00:00:00* Test Item Value Reference Range Interpretation [...] code = 1015) 230 K/UL Delfino F AustinURIC [id number] 00:00:00* Test Item Value Reference Range Interpretation Comme nts URIC ACID (test code = 2233) 7.8 MG/DL COMPREHENSIVE METABOLIC [id number] 00:00:00* Test Item Value Reference Range Interpretation Comme nts GLUCOSE (test code = 2217) 84 MG/DL BUN (test code = 2208) 12 MG/DL CREATININE (test code = 2214) 1.02 MG/DL eGFR AMER. (test cod e = 91088) 72 ML/MIN/1.73 eGFR NON- AMER. (test code = 71446) 62 ML/MIN/1.73 CALC BUN/CREAT (test code = [...] code = 2219) 9 U/L Delfino Schumacher YouCBC W/AUTO [id number] 00:00:00* Test Item Value Reference Range Interpretation [...] (test code = 1015) 230 K/UL URIC [id number] 00:00:00* Test Item Value Reference Range Interpretation Comme nts URIC ACID (test code = 2233) 7.8 MG/DL Delfino Schumacher YouCOMPREHENSIVE METABOLIC [id number] 00:00:00* Test Item Value Reference Range Interpretation Comme nts GLUCOSE (test code = 2217) 84 MG/DL BUN (test code = 2208) 12 MG/DL CREATININE (test code = 2214) 1.02 MG/DL eGFR AMER. (test cod e = 40251) 72 ML/MIN/1.73 eGFR NON- AMER. (test code = 57483) 62 ML/MIN/1.73 CALC BUN/CREAT (test code = [...] code = 2219) 9 U/L Delfino Schumacher AustinCOMPREHENSIVE METABOLIC [id number] 00:00:00* Test Item Value Reference Range Interpretation Comme nts GLUCOSE (test code = 2217) 84 MG/DL BUN (test code = 2208) 12 MG/DL CREATININE (test code = 2214) 1.02 MG/DL eGFR AMER. (test cod e = 21247) 72 ML/MIN/1.73 eGFR NON- AMER. (test code = 88793) 62 ML/MIN/1.73 CALC BUN/CREAT (test code = [...] code = 2219) 9 U/L CBC W/AUTO [id number] 00:00:00* Test Item Value Reference Range Interpretation [...] = 1015) 230 K/UL Delfino OrtaCOMPREHENSIVE METABOLIC [id number] 00:00:00* Test Item Value Reference Range Interpretation Comme nts GLUCOSE (test code = 2217) 84 MG/DL BUN (test code = 2208) 12 MG/DL CREATININE (test code = 2214) 1.02 MG/DL eGFR AMER. (test cod e = 15738) 72 ML/MIN/1.73 eGFR NON- AMER. (test code = 11309) 62 ML/MIN/1.73 CALC BUN/CREAT (test code = [...] code = 2219) 9 U/L Delfino OrtaURIC [id number] 00:00:00* Test Item Value Reference Range Interpretation Comme nts URIC ACID (test code = 2233) 7.8 MG/DL Delfino OrtaCBC W/AUTO [id number] 00:00:00* Test Item Value Reference Range Interpretation [...] = 1015) 230 K/UL Delfino OrtaCOMPREHENSIVE METABOLIC [id number] 00:00:00* Test Item Value Reference Range Interpretation Comme nts GLUCOSE (test code = 2217) 84 MG/DL BUN (test code = 2208) 12 MG/DL CREATININE (test code = 2214) 1.02 MG/DL eGFR AMER. (test cod e = 19795) 72 ML/MIN/1.73 eGFR NON- AMER. (test code = 07142) 62 ML/MIN/1.73 CALC BUN/CREAT (test code = [...] code = 2219) 9 U/L Delfino OrtaURIC [id number] 00:00:00* Test Item Value Reference Range Interpretation Comme nts URIC ACID (test code = 2233) 7.8 MG/DL Delfino OrtaCBC W/AUTO [id number] 00:00:00* Test Item Value Reference Range Interpretation [...] = 1015) 230 K/UL Delfino OrtaCOMPREHENSIVE METABOLIC [id number] 00:00:00* Test Item Value Reference Range Interpretation Comme nts GLUCOSE (test code = 2217) 84 MG/DL BUN (test code = 2208) 12 MG/DL CREATININE (test code = 2214) 1.02 MG/DL eGFR AMER. (test cod e = 36901) 72 ML/MIN/1.73 eGFR NON- AMER. (test code = 16349) 62 ML/MIN/1.73 CALC BUN/CREAT (test code = [...] code = 2219) 9 U/L Delfino OrtaURIC [id number] 00:00:00* Test Item Value Reference Range Interpretation Comme nts URIC ACID (test code = 2233) 7.8 MG/DL Delfino OrtaCBC W/AUTO [id number] 00:00:00* Test Item Value Reference Range Interpretation [...] = 1015) 230 K/UL Delfino OrtaCOMPREHENSIVE METABOLIC [id number] 00:00:00* Test Item Value Reference Range Interpretation Comme nts GLUCOSE (test code = 2217) 84 MG/DL BUN (test code = 2208) 12 MG/DL CREATININE (test code = 2214) 1.02 MG/DL eGFR AMER. (test cod e = 38399) 72 ML/MIN/1.73 eGFR NON- AMER. (test code = 15314) 62 ML/MIN/1.73 CALC BUN/CREAT (test code = [...] ALT (test code = 2219) 9 U/L Dlefino OrtaURIC [id number] 00:00:00* Test Item Value Reference Range Interpretation Comme nts URIC ACID (test code = 2233) 7.8 MG/DL Delfino OrtaCBC W/AUTO [id number] 00:00:00* Test Item Value Reference Range Interpretation [...] = 1015) 230 K/UL Delfino OrtaCOMPREHENSIVE METABOLIC [id number] 00:00:00* Test Item Value Reference Range Interpretation Comme nts GLUCOSE (test code = 2217) 84 MG/DL BUN (test code = 2208) 12 MG/DL CREATININE (test code = 2214) 1.02 MG/DL eGFR AMER. (test cod e = 87019) 72 ML/MIN/1.73 eGFR NON- AMER. (test code = 58079) 62 ML/MIN/1.73 CALC BUN/CREAT (test code = [...] code = 2219) 9 U/L Delfino OrtaURIC [id number] 00:00:00* Test Item Value Reference Range Interpretation Comme nts URIC ACID (test code = 2233) 7.8 MG/DL Delfino OrtaCBC W/AUTO [id number] 00:00:00* Test Item Value Reference Range Interpretation [...] = 1015) 230 K/UL Delfino OrtaCOMPREHENSIVE METABOLIC [id number] 00:00:00* Test Item Value Reference Range Interpretation Comme nts GLUCOSE (test code = 2217) 84 MG/DL BUN (test code = 2208) 12 MG/DL CREATININE (test code = 2214) 1.02 MG/DL eGFR AMER. (test cod e = 22651) 72 ML/MIN/1.73 eGFR NON- AMER. (test code = 76858) 62 ML/MIN/1.73 CALC BUN/CREAT (test code = [...] code = 2219) 9 U/L Delfino OrtaURIC [id number] 00:00:00* Test Item Value Reference Range Interpretation Comme nts URIC ACID (test code = 2233) 7.8 MG/DL Delfino OrtaCBC W/AUTO [id number] 00:00:00* Test Item Value Reference Range Interpretation [...] = 1015) 230 K/UL Delfino OrtaCOMPREHENSIVE METABOLIC [id number] 00:00:00* Test Item Value Reference Range Interpretation Comme nts GLUCOSE (test code = 2217) 84 MG/DL BUN (test code = 2208) 12 MG/DL CREATININE (test code = 2214) 1.02 MG/DL eGFR AMER. (test cod e = 12711) 72 ML/MIN/1.73 eGFR NON- AMER. (test code = 22363) 62 ML/MIN/1.73 CALC BUN/CREAT (test code = [...] code = 2219) 9 U/L Delfino OrtaURIC [id number] 00:00:00* Test Item Value Reference Range Interpretation Comme nts URIC ACID (test code = 2233) 7.8 MG/DL Delfino OrtaCBC W/AUTO [id number] 00:00:00* Test Item Value Reference Range Interpretation [...] = 1015) 230 K/UL Delfino OrtaCOMPREHENSIVE METABOLIC [id number] 00:00:00* Test Item Value Reference Range Interpretation Comme nts GLUCOSE (test code = 2217) 84 MG/DL BUN (test code = 2208) 12 MG/DL CREATININE (test code = 2214) 1.02 MG/DL eGFR AMER. (test cod e = 33003) 72 ML/MIN/1.73 eGFR NON- AMER. (test code = 27227) 62 ML/MIN/1.73 CALC BUN/CREAT (test code = [...] code = 2219) 9 U/L Delfino OrtaURIC [id number] 00:00:00* Test Item Value Reference Range Interpretation Comme nts URIC ACID (test code = 2233) 7.8 MG/DL Delfino Schumacher YouCBC W/AUTO [id number] 00:00:00* Test Item Value Reference Range Interpretation [...] 1015) 230 K/UL Delfino F YouCOMPREHENSIVE METABOLIC [id number] 00:00:00* Test Item Value Reference Range Interpretation Comme nts GLUCOSE (test code = 2217) 84 MG/DL BUN (test code = 2208) 12 MG/DL CREATININE (test code = 2214) 1.02 MG/DL eGFR AMER. (test cod e = 73463) 72 ML/MIN/1.73 eGFR NON- AMER. (test code = 12520) 62 ML/MIN/1.73 CALC BUN/CREAT (test code = [...] = 2219) 9 U/L Delfino Endy YouURIC [id number] 00:00:00* Test Item Value Reference Range Interpretation Comme nts URIC ACID (test code = 2233) 7.8 MG/DL Delfino OrtaCBC W/AUTO [id number] 00:00:00* Test Item Value Reference Range Interpretation [...] = 1015) 230 K/UL Delfino OrtaCOMPREHENSIVE METABOLIC [id number] 00:00:00* Test Item Value Reference Range Interpretation Comme nts GLUCOSE (test code = 2217) 84 MG/DL BUN (test code = 2208) 12 MG/DL CREATININE (test code = 2214) 1.02 MG/DL eGFR AMER. (test cod e = 48343) 72 ML/MIN/1.73 eGFR NON- AMER. (test code = 15332) 62 ML/MIN/1.73 CALC BUN/CREAT (test code = [...] = 2219) 9 U/L Delfino Endy YouURIC [id number] 00:00:00* Test Item Value Reference Range Interpretation Comme nts URIC ACID (test code = 2233) 7.8 MG/DL Delfino OrtaCBC W/AUTO [id number] 00:00:00* Test Item Value Reference Range Interpretation [...] = 1015) 230 K/UL Delfino OrtaCOMPREHENSIVE METABOLIC [id number] 00:00:00* Test Item Value Reference Range Interpretation Comme nts GLUCOSE (test code = 2217) 84 MG/DL BUN (test code = 2208) 12 MG/DL CREATININE (test code = 2214) 1.02 MG/DL eGFR AMER. (test cod e = 05322) 72 ML/MIN/1.73 eGFR NON- AMER. (test code = 90836) 62 ML/MIN/1.73 CALC BUN/CREAT (test code = [...] code = 2219) 9 U/L Delfino OrtaURIC [id number] 00:00:00* Test Item Value Reference Range Interpretation Comme nts URIC ACID (test code = 2233) 7.8 MG/DL Delfino OrtaCBC W/AUTO [id number] 00:00:00* Test Item Value Reference Range Interpretation [...] = 1015) 230 K/UL Delfino OrtaCOMPREHENSIVE METABOLIC [id number] 00:00:00* Test Item Value Reference Range Interpretation Comme nts GLUCOSE (test code = 2217) 84 MG/DL BUN (test code = 2208) 12 MG/DL CREATININE (test code = 2214) 1.02 MG/DL eGFR AMER. (test cod e = 57549) 72 ML/MIN/1.73 eGFR NON- AMER. (test code = 58008) 62 ML/MIN/1.73 CALC BUN/CREAT (test code = [...] code = 2219) 9 U/L Delfino OrtaURIC [id number] 00:00:00* Test Item Value Reference Range Interpretation Comme nts URIC ACID (test code = 2233) 7.8 MG/DL Delfino OrtaCBC W/AUTO [id number] 00:00:00* Test Item Value Reference Range Interpretation [...] = 1015) 230 K/UL Delfino OrtaCOMPREHENSIVE METABOLIC [id number] 00:00:00* Test Item Value Reference Range Interpretation Comme nts GLUCOSE (test code = 2217) 84 MG/DL BUN (test code = 2208) 12 MG/DL CREATININE (test code = 2214) 1.02 MG/DL eGFR AMER. (test cod e = 93773) 72 ML/MIN/1.73 eGFR NON- AMER. (test code = 76885) 62 ML/MIN/1.73 CALC BUN/CREAT (test code = [...] code = 2219) 9 U/L Delfino OrtaURIC [id number] 00:00:00* Test Item Value Reference Range Interpretation Comme nts URIC ACID (test code = 2233) 7.8 MG/DL Delfino Schumacher YouCBC W/AUTO [id number] 00:00:00* Test Item Value Reference Range Interpretation [...] 1015) 230 K/UL Delfino Schumacher YouCOMPREHENSIVE METABOLIC [id number] 00:00:00* Test Item Value Reference Range Interpretation Comme nts GLUCOSE (test code = 2217) 84 MG/DL BUN (test code = 2208) 12 MG/DL CREATININE (test code = 2214) 1.02 MG/DL eGFR AMER. (test cod e = 78738) 72 ML/MIN/1.73 eGFR NON- AMER. (test code = 41978) 62 ML/MIN/1.73 CALC BUN/CREAT (test code = [...] code = 2219) 9 U/L Delfino OrtaURIC [id number] 00:00:00* Test Item Value Reference Range Interpretation Comme nts URIC ACID (test code = 2233) 7.8 MG/DL Delfino OrtaCBC W/AUTO [id number] 00:00:00* Test Item Value Reference Range Interpretation [...] = 1015) 230 K/UL Delfino OrtaCOMPREHENSIVE METABOLIC [id number] 00:00:00* Test Item Value Reference Range Interpretation Comme nts GLUCOSE (test code = 2217) 84 MG/DL BUN (test code = 2208) 12 MG/DL CREATININE (test code = 2214) 1.02 MG/DL eGFR AMER. (test cod e = 23957) 72 ML/MIN/1.73 eGFR NON- AMER. (test code = 45824) 62 ML/MIN/1.73 CALC BUN/CREAT (test code = [...] code = 2219) 9 U/L Delfino OrtaURIC [id number] 00:00:00* Test Item Value Reference Range Interpretation Comme nts URIC ACID (test code = 2233) 7.8 MG/DL Delfino OrtaCBC W/AUTO [id number] 00:00:00* Test Item Value Reference Range Interpretation [...] = 1015) 230 K/UL Delfino OrtaCOMPREHENSIVE METABOLIC [id number] 00:00:00* Test Item Value Reference Range Interpretation Comme nts GLUCOSE (test code = 2217) 84 MG/DL BUN (test code = 2208) 12 MG/DL CREATININE (test code = 2214) 1.02 MG/DL eGFR AMER. (test cod e = 16613) 72 ML/MIN/1.73 eGFR NON- AMER. (test code = 01096) 62 ML/MIN/1.73 CALC BUN/CREAT (test code = [...] = 2219) 9 U/L Delfino Schumacher YouURIC [id number] 00:00:00* Test Item Value Reference Range Interpretation Comme nts URIC ACID (test code = 2233) 7.8 MG/DL Delfino Schumacher YouCBC W/AUTO [id number] 00:00:00* Test Item Value Reference Range Interpretation [...] = 1015) 230 K/UL Delfino OrtaCOMPREHENSIVE METABOLIC [id number] 00:00:00* Test Item Value Reference Range Interpretation Comme nts GLUCOSE (test code = 2217) 84 MG/DL BUN (test code = 2208) 12 MG/DL CREATININE (test code = 2214) 1.02 MG/DL eGFR AMER. (test cod e = 68618) 72 ML/MIN/1.73 eGFR NON- AMER. (test code = 40670) 62 ML/MIN/1.73 CALC BUN/CREAT (test code = [...] code = 2219) 9 U/L Delfino OrtaURIC [id number] 00:00:00* Test Item Value Reference Range Interpretation Comme nts URIC ACID (test code = 2233) 7.8 MG/DL Delfino OrtaCBC W/AUTO [id number] 00:00:00* Test Item Value Reference Range Interpretation [...] = 1015) 230 K/UL Delfino OrtaCOMPREHENSIVE METABOLIC [id number] 00:00:00* Test Item Value Reference Range Interpretation Comme nts GLUCOSE (test code = 2217) 84 MG/DL BUN (test code = 2208) 12 MG/DL CREATININE (test code = 2214) 1.02 MG/DL eGFR AMER. (test cod e = 67868) 72 ML/MIN/1.73 eGFR NON- AMER. (test code = 72544) 62 ML/MIN/1.73 CALC BUN/CREAT (test code = [...] code = 2219) 9 U/L Delfino OrtaURIC [id number] 00:00:00* Test Item Value Reference Range Interpretation Comme nts URIC ACID (test code = 2233) 7.8 MG/DL Delfino OrtaLIPID [id number] 00:00:00* Test Item Value Reference Range Interpretation Comme nts CHOLESTEROL (test code = 2210) 215 MG/DL TRIGLYCERIDES (test code = 2232) 61 MG/DL HDL CHOLESTEROL (test code = 2220) 93 MG/DL CALC LDL CHOL (test code = 2237) 110 MG/DL RISK RATIO LDL/HDL (test cod e = 2238) 1.18 RATIO Delfino OrtaCOMPREHENSIVE METABOLIC [id number] 00:00:00* Test Item Value Reference Range Interpretation Comme nts GLUCOSE (test code = 2217) 93 MG/DL BUN (test code = 2208) 20 MG/DL CREATININE (test code = 2214) 1.18 MG/DL eGFR AMER. (test cod e = 91152) 61 ML/MIN/1.73 eGFR NON- AMER. (test code = 11605) 52 ML/MIN/1.73 CALC BUN/CREAT (test code = [...] 2219) 15 U/L Delfino Schumacher YouCBC W/AUTO [id number] 00:00:00* Test Item Value Reference Range Interpretation [...] code = 1015) 317 K/UL Delfino OrtaLIPID [id number] 00:00:00* Test Item Value Reference Range Interpretation Comme nts CHOLESTEROL (test code = 2210) 215 MG/DL TRIGLYCERIDES (test code = 2232) 61 MG/DL HDL CHOLESTEROL (test code = 2220) 93 MG/DL CALC LDL CHOL (test code = 2237) 110 MG/DL RISK RATIO LDL/HDL (test cod e = 2238) 1.18 RATIO Delfino OrtaCOMPREHENSIVE METABOLIC [id number] 00:00:00* Test Item Value Reference Range Interpretation Comme nts GLUCOSE (test code = 2217) 93 MG/DL BUN (test code = 2208) 20 MG/DL CREATININE (test code = 2214) 1.18 MG/DL eGFR AMER. (test cod e = 50642) 61 ML/MIN/1.73 eGFR NON- AMER. (test code = 40795) 52 ML/MIN/1.73 CALC BUN/CREAT (test code = [...] = 2219) 15 U/L Delfino OrtaCBC W/AUTO [id number] 00:00:00* Test Item Value Reference Range Interpretation [...] code = 1015) 317 K/UL Delfino Schumacher [employer] W/AUTO [id number] 00:00:00* Test Item Value Reference Range Interpretation [...] code = 1015) 317 K/UL Delfino [facility]acher [facility] [id number] 00:00:00* Test Item Value Reference Range Interpretation [...] (test code = 1015) 317 K/UL LIPID [id number] 00:00:00* Test Item Value Reference Range Interpretation Comme nts CHOLESTEROL (test code = 2210) 215 MG/DL TRIGLYCERIDES (test code = 2232) 61 MG/DL HDL CHOLESTEROL (test code = 2220) 93 MG/DL CALC LDL CHOL (test code = 2237) 110 MG/DL RISK RATIO LDL/HDL (test cod e = 2238) 1.18 RATIO COMPREHENSIVE METABOLIC [id number] 00:00:00* Test Item Value Reference Range Interpretation Comme nts GLUCOSE (test code = 2217) 93 MG/DL BUN (test code = 2208) 20 MG/DL CREATININE (test code = 2214) 1.18 MG/DL eGFR AMER. (test cod e = 51528) 61 ML/MIN/1.73 eGFR NON- AMER. (test code = 04895) 52 ML/MIN/1.73 CALC BUN/CREAT (test code = [...] (test code = 2219) 15 U/L LIPID [id number] 00:00:00* Test Item Value Reference Range Interpretation Comme nts CHOLESTEROL (test code = 2210) 215 MG/DL TRIGLYCERIDES (test code = 2232) 61 MG/DL HDL CHOLESTEROL (test code = 2220) 93 MG/DL CALC LDL CHOL (test code = 2237) 110 MG/DL RISK RATIO LDL/HDL (test cod e = 2238) 1.18 RATIO Delfino OrtaCOMPREHENSIVE METABOLIC [id number] 00:00:00* Test Item Value Reference Range Interpretation Comme nts GLUCOSE (test code = 2217) 93 MG/DL BUN (test code = 2208) 20 MG/DL CREATININE (test code = 2214) 1.18 MG/DL eGFR AMER. (test cod e = 02086) 61 ML/MIN/1.73 eGFR NON- AMER. (test code = 49289) 52 ML/MIN/1.73 CALC BUN/CREAT (test code = [...] = 2219) 15 U/L Delfino OrtaCBC W/AUTO [id number] 00:00:00* Test Item Value Reference Range Interpretation [...] code = 1015) 317 K/UL CBC W/AUTO [id number] 00:00:00* Test Item Value Reference Range Interpretation [...] = 1015) 317 K/UL Delfino Schumacher AustinLIPID [id number] 00:00:00* Test Item Value Reference Range Interpretation Comme nts CHOLESTEROL (test code = 2210) 215 MG/DL TRIGLYCERIDES (test code = 2232) 61 MG/DL HDL CHOLESTEROL (test code = 2220) 93 MG/DL CALC LDL CHOL (test code = 2237) 110 MG/DL RISK RATIO LDL/HDL (test cod e = 2238) 1.18 RATIO Delfino Schumacher AustinLIPID [id number] 00:00:00* Test Item Value Reference Range Interpretation Comme nts CHOLESTEROL (test code = 2210) 215 MG/DL TRIGLYCERIDES (test code = 2232) 61 MG/DL HDL CHOLESTEROL (test code = 2220) 93 MG/DL CALC LDL CHOL (test code = 2237) 110 MG/DL RISK RATIO LDL/HDL (test cod e = 2238) 1.18 RATIO LIPID [id number] 00:00:00* Test Item Value Reference Range Interpretation Comme nts CHOLESTEROL (test code = 2210) 215 MG/DL TRIGLYCERIDES (test code = 2232) 61 MG/DL HDL CHOLESTEROL (test code = 2220) 93 MG/DL CALC LDL CHOL (test code = 2237) 110 MG/DL RISK RATIO LDL/HDL (test cod e = 2238) 1.18 RATIO Delfino OrtaCOMPREHENSIVE METABOLIC [id number] 00:00:00* Test Item Value Reference Range Interpretation Comme nts GLUCOSE (test code = 2217) 93 MG/DL BUN (test code = 2208) 20 MG/DL CREATININE (test code = 2214) 1.18 MG/DL eGFR AMER. (test cod e = 07915) 61 ML/MIN/1.73 eGFR NON- AMER. (test code = 46951) 52 ML/MIN/1.73 CALC BUN/CREAT (test code = [...] code = 2219) 15 U/L COMPREHENSIVE METABOLIC [id number] 00:00:00* Test Item Value Reference Range Interpretation Comme nts GLUCOSE (test code = 2217) 93 MG/DL BUN (test code = 2208) 20 MG/DL CREATININE (test code = 2214) 1.18 MG/DL eGFR AMER. (test cod e = 90015) 61 ML/MIN/1.73 eGFR NON- AMER. (test code = 55723) 52 ML/MIN/1.73 CALC BUN/CREAT (test code = [...] code = 2219) 15 U/L [facility] [id number] 00:00:00* Test Item Value Reference Range Interpretation [...] (test code = 1015) 317 K/UL LIPID [id number] 00:00:00* Test Item Value Reference Range Interpretation Comme nts CHOLESTEROL (test code = 2210) 215 MG/DL TRIGLYCERIDES (test code = 2232) 61 MG/DL HDL CHOLESTEROL (test code = 2220) 93 MG/DL CALC LDL CHOL (test code = 2237) 110 MG/DL RISK RATIO LDL/HDL (test cod e = 2238) 1.18 RATIO CBC W/AUTO [id number] 00:00:00* Test Item Value Reference Range Interpretation [...] code = 1015) 317 K/UL Delfino Schumacher YouCOMPREHENSIVE METABOLIC [id number] 00:00:00* Test Item Value Reference Range Interpretation Comme nts GLUCOSE (test code = 2217) 93 MG/DL BUN (test code = 2208) 20 MG/DL CREATININE (test code = 2214) 1.18 MG/DL eGFR AMER. (test cod e = 25343) 61 ML/MIN/1.73 eGFR NON- AMER. (test code = 61184) 52 ML/MIN/1.73 CALC BUN/CREAT (test code = [...] (test code = 2219) 15 U/L LIPID [id number] 00:00:00* Test Item Value Reference Range Interpretation Comme nts CHOLESTEROL (test code = 2210) 215 MG/DL TRIGLYCERIDES (test code = 2232) 61 MG/DL HDL CHOLESTEROL (test code = 2220) 93 MG/DL CALC LDL CHOL (test code = 2237) 110 MG/DL RISK RATIO LDL/HDL (test cod e = 2238) 1.18 RATIO Delfino OrtaCOMPREHENSIVE METABOLIC [id number] 00:00:00* Test Item Value Reference Range Interpretation Comme nts GLUCOSE (test code = 2217) 93 MG/DL BUN (test code = 2208) 20 MG/DL CREATININE (test code = 2214) 1.18 MG/DL eGFR AMER. (test cod e = 93070) 61 ML/MIN/1.73 eGFR NON- AMER. (test code = 49939) 52 ML/MIN/1.73 CALC BUN/CREAT (test code = [...] = 2219) 15 U/L Delfino OrtaCBC W/AUTO [id number] 00:00:00* Test Item Value Reference Range Interpretation [...] code = 1015) 317 K/UL COMPREHENSIVE METABOLIC [id number] 00:00:00* Test Item Value Reference Range Interpretation Comme nts GLUCOSE (test code = 2217) 93 MG/DL BUN (test code = 2208) 20 MG/DL CREATININE (test code = 2214) 1.18 MG/DL eGFR AMER. (test cod e = 92378) 61 ML/MIN/1.73 eGFR NON- AMER. (test code = 28758) 52 ML/MIN/1.73 CALC BUN/CREAT (test code = [...] = 2219) 15 U/L Delfino F AustinLIPID [id number] 00:00:00* Test Item Value Reference Range Interpretation Comme nts CHOLESTEROL (test code = 2210) 215 MG/DL TRIGLYCERIDES (test code = 2232) 61 MG/DL HDL CHOLESTEROL (test code = 2220) 93 MG/DL CALC LDL CHOL (test code = 2237) 110 MG/DL RISK RATIO LDL/HDL (test cod e = 2238) 1.18 RATIO CBC W/AUTO [id number] 00:00:00* Test Item Value Reference Range Interpretation [...] code = 1015) 317 K/UL Delfino Schumacher YouCOMPREHENSIVE METABOLIC [id number] 00:00:00* Test Item Value Reference Range Interpretation Comme nts GLUCOSE (test code = 2217) 93 MG/DL BUN (test code = 2208) 20 MG/DL CREATININE (test code = 2214) 1.18 MG/DL eGFR AMER. (test cod e = 88376) 61 ML/MIN/1.73 eGFR NON- AMER. (test code = 25109) 52 ML/MIN/1.73 CALC BUN/CREAT (test code = [...] (test code = 2219) 15 U/L LIPID [id number] 00:00:00* Test Item Value Reference Range Interpretation Comme nts CHOLESTEROL (test code = 2210) 215 MG/DL TRIGLYCERIDES (test code = 2232) 61 MG/DL HDL CHOLESTEROL (test code = 2220) 93 MG/DL CALC LDL CHOL (test code = 2237) 110 MG/DL RISK RATIO LDL/HDL (test cod e = 2238) 1.18 RATIO Delfino OrtaCOMPREHENSIVE METABOLIC [id number] 00:00:00* Test Item Value Reference Range Interpretation Comme nts GLUCOSE (test code = 2217) 93 MG/DL BUN (test code = 2208) 20 MG/DL CREATININE (test code = 2214) 1.18 MG/DL eGFR AMER. (test cod e = 19834) 61 ML/MIN/1.73 eGFR NON- AMER. (test code = 70438) 52 ML/MIN/1.73 CALC BUN/CREAT (test code = [...] = 2219) 15 U/L Delfino OrtaCBC W/AUTO [id number] 00:00:00* Test Item Value Reference Range Interpretation [...] code = 1015) 317 K/UL Delfino OrtaLIPID [id number] 00:00:00* Test Item Value Reference Range Interpretation Comme nts CHOLESTEROL (test code = 2210) 215 MG/DL TRIGLYCERIDES (test code = 2232) 61 MG/DL HDL CHOLESTEROL (test code = 2220) 93 MG/DL CALC LDL CHOL (test code = 2237) 110 MG/DL RISK RATIO LDL/HDL (test cod e = 2238) 1.18 RATIO Delfino OrtaCOMPREHENSIVE METABOLIC [id number] 00:00:00* Test Item Value Reference Range Interpretation Comme nts GLUCOSE (test code = 2217) 93 MG/DL BUN (test code = 2208) 20 MG/DL CREATININE (test code = 2214) 1.18 MG/DL eGFR AMER. (test cod e = 65101) 61 ML/MIN/1.73 eGFR NON- AMER. (test code = 74616) 52 ML/MIN/1.73 CALC BUN/CREAT (test code = [...] 2219) 15 U/L Delfino Schumacher YouCBC W/AUTO [id number] 00:00:00* Test Item Value Reference Range Interpretation [...] = 1015) 317 K/UL Delfino Schumacher AustinLIPID [id number] 00:00:00* Test Item Value Reference Range Interpretation Comme nts CHOLESTEROL (test code = 2210) 215 MG/DL TRIGLYCERIDES (test code = 2232) 61 MG/DL HDL CHOLESTEROL (test code = 2220) 93 MG/DL CALC LDL CHOL (test code = 2237) 110 MG/DL RISK RATIO LDL/HDL (test cod e = 2238) 1.18 RATIO Delfino Schumacher YouCOMPREHENSIVE METABOLIC [id number] 00:00:00* Test Item Value Reference Range Interpretation Comme nts GLUCOSE (test code = 2217) 93 MG/DL BUN (test code = 2208) 20 MG/DL CREATININE (test code = 2214) 1.18 MG/DL eGFR AMER. (test cod e = 96564) 61 ML/MIN/1.73 eGFR NON- AMER. (test code = 19805) 52 ML/MIN/1.73 CALC BUN/CREAT (test code = [...] = 2219) 15 U/L Delfino OrtaCBC W/AUTO [id number] 00:00:00* Test Item Value Reference Range Interpretation [...] code = 1015) 317 K/UL Delfino OrtaLIPID [id number] 00:00:00* Test Item Value Reference Range Interpretation Comme nts CHOLESTEROL (test code = 2210) 215 MG/DL TRIGLYCERIDES (test code = 2232) 61 MG/DL HDL CHOLESTEROL (test code = 2220) 93 MG/DL CALC LDL CHOL (test code = 2237) 110 MG/DL RISK RATIO LDL/HDL (test cod e = 2238) 1.18 RATIO Delfino OrtaCOMPREHENSIVE METABOLIC [id number] 00:00:00* Test Item Value Reference Range Interpretation Comme nts GLUCOSE (test code = 2217) 93 MG/DL BUN (test code = 2208) 20 MG/DL CREATININE (test code = 2214) 1.18 MG/DL eGFR AMER. (test cod e = 52053) 61 ML/MIN/1.73 eGFR NON- AMER. (test code = 73940) 52 ML/MIN/1.73 CALC BUN/CREAT (test code = [...] = 2219) 15 U/L Delfino OrtaCBC W/AUTO [id number] 00:00:00* Test Item Value Reference Range Interpretation [...] code = 1015) 317 K/UL Delfino OrtaLIPID [id number] 00:00:00* Test Item Value Reference Range Interpretation Comme nts CHOLESTEROL (test code = 2210) 215 MG/DL TRIGLYCERIDES (test code = 2232) 61 MG/DL HDL CHOLESTEROL (test code = 2220) 93 MG/DL CALC LDL CHOL (test code = 2237) 110 MG/DL RISK RATIO LDL/HDL (test cod e = 2238) 1.18 RATIO Delfino F AustinCOMPREHENSIVE METABOLIC [id number] 00:00:00* Test Item Value Reference Range Interpretation Comme nts GLUCOSE (test code = 2217) 93 MG/DL BUN (test code = 2208) 20 MG/DL CREATININE (test code = 2214) 1.18 MG/DL eGFR AMER. (test cod e = 27075) 61 ML/MIN/1.73 eGFR NON- AMER. (test code = 53939) 52 ML/MIN/1.73 CALC BUN/CREAT (test code = [...] = 2219) 15 U/L Delfino OrtaCBC W/AUTO [id number] 00:00:00* Test Item Value Reference Range Interpretation [...] code = 1015) 317 K/UL Delfino OrtaLIPID [id number] 00:00:00* Test Item Value Reference Range Interpretation Comme nts CHOLESTEROL (test code = 2210) 215 MG/DL TRIGLYCERIDES (test code = 2232) 61 MG/DL HDL CHOLESTEROL (test code = 2220) 93 MG/DL CALC LDL CHOL (test code = 2237) 110 MG/DL RISK RATIO LDL/HDL (test cod e = 2238) 1.18 RATIO Delfino OrtaCOMPREHENSIVE METABOLIC [id number] 00:00:00* Test Item Value Reference Range Interpretation Comme nts GLUCOSE (test code = 2217) 93 MG/DL BUN (test code = 2208) 20 MG/DL CREATININE (test code = 2214) 1.18 MG/DL eGFR AMER. (test cod e = 96379) 61 ML/MIN/1.73 eGFR NON- AMER. (test code = 97254) 52 ML/MIN/1.73 CALC BUN/CREAT (test code = [...] = 2219) 15 U/L Delfino OrtaCBC W/AUTO [id number] 00:00:00* Test Item Value Reference Range Interpretation [...] code = 1015) 317 K/UL Delfino OrtaLIPID [id number] 00:00:00* Test Item Value Reference Range Interpretation Comme nts CHOLESTEROL (test code = 2210) 215 MG/DL TRIGLYCERIDES (test code = 2232) 61 MG/DL HDL CHOLESTEROL (test code = 2220) 93 MG/DL CALC LDL CHOL (test code = 2237) 110 MG/DL RISK RATIO LDL/HDL (test cod e = 2238) 1.18 RATIO Delfino OrtaCOMPREHENSIVE METABOLIC [id number] 00:00:00* Test Item Value Reference Range Interpretation Comme nts GLUCOSE (test code = 2217) 93 MG/DL BUN (test code = 2208) 20 MG/DL CREATININE (test code = 2214) 1.18 MG/DL eGFR AMER. (test cod e = 02946) 61 ML/MIN/1.73 eGFR NON- AMER. (test code = 02463) 52 ML/MIN/1.73 CALC BUN/CREAT (test code = [...] = 2219) 15 U/L Delfino OrtaCBC W/AUTO [id number] 00:00:00* Test Item Value Reference Range Interpretation [...] code = 1015) 317 K/UL Delfino OrtaLIPID [id number] 00:00:00* Test Item Value Reference Range Interpretation Comme nts CHOLESTEROL (test code = 2210) 215 MG/DL TRIGLYCERIDES (test code = 2232) 61 MG/DL HDL CHOLESTEROL (test code = 2220) 93 MG/DL CALC LDL CHOL (test code = 2237) 110 MG/DL RISK RATIO LDL/HDL (test cod e = 2238) 1.18 RATIO Delfino OrtaCOMPREHENSIVE METABOLIC [id number] 00:00:00* Test Item Value Reference Range Interpretation Comme nts GLUCOSE (test code = 2217) 93 MG/DL BUN (test code = 2208) 20 MG/DL CREATININE (test code = 2214) 1.18 MG/DL eGFR AMER. (test cod e = 53580) 61 ML/MIN/1.73 eGFR NON- AMER. (test code = 07760) 52 ML/MIN/1.73 CALC BUN/CREAT (test code = [...] = 2219) 15 U/L Delfino OrtaCBC W/AUTO [id number] 00:00:00* Test Item Value Reference Range Interpretation [...] code = 1015) 317 K/UL Delfino OrtaLIPID [id number] 00:00:00* Test Item Value Reference Range Interpretation Comme nts CHOLESTEROL (test code = 2210) 215 MG/DL TRIGLYCERIDES (test code = 2232) 61 MG/DL HDL CHOLESTEROL (test code = 2220) 93 MG/DL CALC LDL CHOL (test code = 2237) 110 MG/DL RISK RATIO LDL/HDL (test cod e = 2238) 1.18 RATIO Delfino OrtaCOMPREHENSIVE METABOLIC [id number] 00:00:00* Test Item Value Reference Range Interpretation Comme nts GLUCOSE (test code = 2217) 93 MG/DL BUN (test code = 2208) 20 MG/DL CREATININE (test code = 2214) 1.18 MG/DL eGFR AMER. (test cod e = 28156) 61 ML/MIN/1.73 eGFR NON- AMER. (test code = 57366) 52 ML/MIN/1.73 CALC BUN/CREAT (test code = [...] = 2219) 15 U/L Delfino OrtaCBC W/AUTO [id number] 00:00:00* Test Item Value Reference Range Interpretation [...] code = 1015) 317 K/UL Delfino OrtaLIPID [id number] 00:00:00* Test Item Value Reference Range Interpretation Comme nts CHOLESTEROL (test code = 2210) 215 MG/DL TRIGLYCERIDES (test code = 2232) 61 MG/DL HDL CHOLESTEROL (test code = 2220) 93 MG/DL CALC LDL CHOL (test code = 2237) 110 MG/DL RISK RATIO LDL/HDL (test cod e = 2238) 1.18 RATIO Delfino OrtaCOMPREHENSIVE METABOLIC [id number] 00:00:00* Test Item Value Reference Range Interpretation Comme nts GLUCOSE (test code = 2217) 93 MG/DL BUN (test code = 2208) 20 MG/DL CREATININE (test code = 2214) 1.18 MG/DL eGFR AMER. (test cod e = 63215) 61 ML/MIN/1.73 eGFR NON- AMER. (test code = 92441) 52 ML/MIN/1.73 CALC BUN/CREAT (test code = [...] 2219) 15 U/L Delfino Schumacher YouCBC W/AUTO [id number] 00:00:00* Test Item Value Reference Range Interpretation [...] code = 1015) 317 K/UL Delfino OrtaLIPID [id number] 00:00:00* Test Item Value Reference Range Interpretation Comme nts CHOLESTEROL (test code = 2210) 215 MG/DL TRIGLYCERIDES (test code = 2232) 61 MG/DL HDL CHOLESTEROL (test code = 2220) 93 MG/DL CALC LDL CHOL (test code = 2237) 110 MG/DL RISK RATIO LDL/HDL (test cod e = 2238) 1.18 RATIO Delfino OrtaCOMPREHENSIVE METABOLIC [id number] 00:00:00* Test Item Value Reference Range Interpretation Comme nts GLUCOSE (test code = 2217) 93 MG/DL BUN (test code = 2208) 20 MG/DL CREATININE (test code = 2214) 1.18 MG/DL eGFR AMER. (test cod e = 44332) 61 ML/MIN/1.73 eGFR NON- AMER. (test code = 91458) 52 ML/MIN/1.73 CALC BUN/CREAT (test code = [...] = 2219) 15 U/L Delfino OrtaCBC W/AUTO [id number] 00:00:00* Test Item Value Reference Range Interpretation [...] = 1015) 317 K/UL Delfino Schumacher AustinLIPID [id number] 00:00:00* Test Item Value Reference Range Interpretation Comme nts CHOLESTEROL (test code = 2210) 215 MG/DL TRIGLYCERIDES (test code = 2232) 61 MG/DL HDL CHOLESTEROL (test code = 2220) 93 MG/DL CALC LDL CHOL (test code = 2237) 110 MG/DL RISK RATIO LDL/HDL (test cod e = 2238) 1.18 RATIO Delfino OrtaCOMPREHENSIVE METABOLIC [id number] 00:00:00* Test Item Value Reference Range Interpretation Comme nts GLUCOSE (test code = 2217) 93 MG/DL BUN (test code = 2208) 20 MG/DL CREATININE (test code = 2214) 1.18 MG/DL eGFR AMER. (test cod e = 12242) 61 ML/MIN/1.73 eGFR NON- AMER. (test code = 30541) 52 ML/MIN/1.73 CALC BUN/CREAT (test code = [...] = 2219) 15 U/L Delfino OrtaCBC W/AUTO [id number] 00:00:00* Test Item Value Reference Range Interpretation [...] code = 1015) 317 K/UL Delfino OrtaLIPID [id number] 00:00:00* Test Item Value Reference Range Interpretation Comme nts CHOLESTEROL (test code = 2210) 215 MG/DL TRIGLYCERIDES (test code = 2232) 61 MG/DL HDL CHOLESTEROL (test code = 2220) 93 MG/DL CALC LDL CHOL (test code = 2237) 110 MG/DL RISK RATIO LDL/HDL (test cod e = 2238) 1.18 RATIO Delfino OrtaCOMPREHENSIVE METABOLIC [id number] 00:00:00* Test Item Value Reference Range Interpretation Comme nts GLUCOSE (test code = 2217) 93 MG/DL BUN (test code = 2208) 20 MG/DL CREATININE (test code = 2214) 1.18 MG/DL eGFR AMER. (test cod e = 32925) 61 ML/MIN/1.73 eGFR NON- AMER. (test code = 08670) 52 ML/MIN/1.73 CALC BUN/CREAT (test code = [...] = 2219) 15 U/L Delfino OrtaCBC W/AUTO [id number] 00:00:00* Test Item Value Reference Range Interpretation [...] code = 1015) 317 K/UL Delfino Endy YouLIPID [id number] 00:00:00* Test Item Value Reference Range Interpretation Comme nts CHOLESTEROL (test code = 2210) 215 MG/DL TRIGLYCERIDES (test code = 2232) 61 MG/DL HDL CHOLESTEROL (test code = 2220) 93 MG/DL CALC LDL CHOL (test code = 2237) 110 MG/DL RISK RATIO LDL/HDL (test cod e = 2238) 1.18 RATIO Delfino OrtaCOMPREHENSIVE METABOLIC [id number] 00:00:00* Test Item Value Reference Range Interpretation Comme nts GLUCOSE (test code = 2217) 93 MG/DL BUN (test code = 2208) 20 MG/DL CREATININE (test code = 2214) 1.18 MG/DL eGFR AMER. (test cod e = 00948) 61 ML/MIN/1.73 eGFR NON- AMER. (test code = 86753) 52 ML/MIN/1.73 CALC BUN/CREAT (test code = [...] = 2219) 15 U/L Delfino OrtaCBC W/AUTO [id number] 00:00:00* Test Item Value Reference Range Interpretation [...] code = 1015) 317 K/UL Delfino OrtaLIPID [id number] 00:00:00* Test Item Value Reference Range Interpretation Comme nts CHOLESTEROL (test code = 2210) 215 MG/DL TRIGLYCERIDES (test code = 2232) 61 MG/DL HDL CHOLESTEROL (test code = 2220) 93 MG/DL CALC LDL CHOL (test code = 2237) 110 MG/DL RISK RATIO LDL/HDL (test cod e = 2238) 1.18 RATIO Delfino OrtaCOMPREHENSIVE METABOLIC [id number] 00:00:00* Test Item Value Reference Range Interpretation Comme nts GLUCOSE (test code = 2217) 93 MG/DL BUN (test code = 2208) 20 MG/DL CREATININE (test code = 2214) 1.18 MG/DL eGFR AMER. (test cod e = 64074) 61 ML/MIN/1.73 eGFR NON- AMER. (test code = 47687) 52 ML/MIN/1.73 CALC BUN/CREAT (test code = [...] = 2219) 15 U/L Delfino OrtaCBC W/AUTO [id number] 00:00:00* Test Item Value Reference Range Interpretation [...] = 1015) 317 K/UL Delfino Schumacher AustinLIPID [id number] 00:00:00* Test Item Value Reference Range Interpretation Comme nts CHOLESTEROL (test code = 2210) 215 MG/DL TRIGLYCERIDES (test code = 2232) 61 MG/DL HDL CHOLESTEROL (test code = 2220) 93 MG/DL CALC LDL CHOL (test code = 2237) 110 MG/DL RISK RATIO LDL/HDL (test cod e = 2238) 1.18 RATIO Delfino OrtaCOMPREHENSIVE METABOLIC [id number] 00:00:00* Test Item Value Reference Range Interpretation Comme nts GLUCOSE (test code = 2217) 93 MG/DL BUN (test code = 2208) 20 MG/DL CREATININE (test code = 2214) 1.18 MG/DL eGFR AMER. (test cod e = 06898) 61 ML/MIN/1.73 eGFR NON- AMER. (test code = 32319) 52 ML/MIN/1.73 CALC BUN/CREAT (test code = [...] = 2219) 15 U/L Delfino OrtaCBC W/AUTO [id number] 00:00:00* Test Item Value Reference Range Interpretation [...] code = 1015) 317 K/UL Delfino OrtaLIPID [id number] 00:00:00* Test Item Value Reference Range Interpretation Comme nts CHOLESTEROL (test code = 2210) 215 MG/DL TRIGLYCERIDES (test code = 2232) 61 MG/DL HDL CHOLESTEROL (test code = 2220) 93 MG/DL CALC LDL CHOL (test code = 2237) 110 MG/DL RISK RATIO LDL/HDL (test cod e = 2238) 1.18 RATIO Delfino OrtaCOMPREHENSIVE METABOLIC [id number] 00:00:00* Test Item Value Reference Range Interpretation Comme nts GLUCOSE (test code = 2217) 93 MG/DL BUN (test code = 2208) 20 MG/DL CREATININE (test code = 2214) 1.18 MG/DL eGFR AMER. (test cod e = 86262) 61 ML/MIN/1.73 eGFR NON- AMER. (test code = 59188) 52 ML/MIN/1.73 CALC BUN/CREAT (test code = [...] = 2219) 15 U/L Delfino OrtaCBC W/AUTO [id number] 00:00:00* Test Item Value Reference Range Interpretation [...] code = 1015) 317 K/UL Delfino OrtaLIPID [id number] 00:00:00* Test Item Value Reference Range Interpretation Comme nts CHOLESTEROL (test code = 2210) 215 MG/DL TRIGLYCERIDES (test code = 2232) 61 MG/DL HDL CHOLESTEROL (test code = 2220) 93 MG/DL CALC LDL CHOL (test code = 2237) 110 MG/DL RISK RATIO LDL/HDL (test cod e = 2238) 1.18 RATIO Delfino OrtaCOMPREHENSIVE METABOLIC [id number] 00:00:00* Test Item Value Reference Range Interpretation Comme nts GLUCOSE (test code = 2217) 93 MG/DL BUN (test code = 2208) 20 MG/DL CREATININE (test code = 2214) 1.18 MG/DL eGFR AMER. (test cod e = 85557) 61 ML/MIN/1.73 eGFR NON- AMER. (test code = 77201) 52 ML/MIN/1.73 CALC BUN/CREAT (test code = [...] (test code = 2219) 15 U/[facility] [id number] 00:00:00* Test Item Value Reference Range Interpretation [...] (test code = 1015) 317 K/UL Delfino Cedeño, URINE [ADDED]2017-08-24 00:00:00* Test Item Value Reference Range Interpretation Comme nts CULTURE, URINE (test code = 89106) SPECIMEN NUMBER: [id number] Delfino Cedeño, URINE [ADDED]2017-08-24 00:00:00* Test Item Value Reference Range Interpretation Comme nts CULTURE, URINE (test code = 19934) SPECIMEN NUMBER: [id number] Delfino OrtaCULTURE, URINE [ADDED]2017-08-24 00:00:00* Test Item Value Reference Range Interpretation Comme nts CULTURE, URINE (test code = 37373) SPECIMEN NUMBER: [id number] CULTURE, URINE [ADDED]2017-08-24 00:00:00* Test Item Value Reference Range Interpretation Comme nts CULTURE, URINE (test code = 81207) SPECIMEN NUMBER: [id number] Delfino OrtaCULTURE, URINE [ADDED]2017-08-24 00:00:00* Test Item Value Reference Range Interpretation Comme nts CULTURE, URINE (test code = 65177) SPECIMEN NUMBER: [id number] CULTURE, URINE [ADDED]2017-08-24 00:00:00* Test Item Value Reference Range Interpretation Comme nts CULTURE, URINE (test code = 88915) SPECIMEN NUMBER: [id number] Delfino OrtaCULTURE, URINE [ADDED]2017-08-24 00:00:00* Test Item Value Reference Range Interpretation Comme nts CULTURE, URINE (test code = 71010) SPECIMEN NUMBER: [id number] CULTURE, URINE [ADDED]2017-08-24 00:00:00* Test Item Value Reference Range Interpretation Comme nts CULTURE, URINE (test code = 02958) SPECIMEN NUMBER: [id number] Delfino OrtaCULTURE, URINE [ADDED]2017-08-24 00:00:00* Test Item Value Reference Range Interpretation Comme nts CULTURE, URINE (test code = 17716) SPECIMEN NUMBER: [id number] CULTURE, URINE [ADDED]2017-08-24 00:00:00* Test Item Value Reference Range Interpretation Comme nts CULTURE, URINE (test code = 58443) SPECIMEN NUMBER: [id number] Delfino Schumacher AustinCULTURE, URINE [ADDED]2017-08-24 00:00:00* Test Item Value Reference Range Interpretation Comme nts CULTURE, URINE (test code = 11927) SPECIMEN NUMBER: [id number] Delfino OrtaCULTURE, URINE [ADDED]2017-08-24 00:00:00* Test Item Value Reference Range Interpretation Comme nts CULTURE, URINE (test code = 73099) SPECIMEN NUMBER: [id number] Delfino OrtaCULTURE, URINE [ADDED]2017-08-24 00:00:00* Test Item Value Reference Range Interpretation Comme nts CULTURE, URINE (test code = 79857) SPECIMEN NUMBER: [id number] Delfino OrtaCULTURE, URINE [ADDED]2017-08-24 00:00:00* Test Item Value Reference Range Interpretation Comme nts CULTURE, URINE (test code = 54231) SPECIMEN NUMBER: [id number] Delfino OrtaCULTURE, URINE [ADDED]2017-08-24 00:00:00* Test Item Value Reference Range Interpretation Comme nts CULTURE, URINE (test code = 42448) SPECIMEN NUMBER: [id number] Delfino OrtaCULTURE, URINE [ADDED]2017-08-24 00:00:00* Test Item Value Reference Range Interpretation Comme nts CULTURE, URINE (test code = 12277) SPECIMEN NUMBER: [id number] Delfino OrtaCULTURE, URINE [ADDED]2017-08-24 00:00:00* Test Item Value Reference Range Interpretation Comme nts CULTURE, URINE (test code = 25511) SPECIMEN NUMBER: [id number] Delfino OrtaCULTURE, URINE [ADDED]2017-08-24 00:00:00* Test Item Value Reference Range Interpretation Comme nts CULTURE, URINE (test code = 24909) SPECIMEN NUMBER: [id number] Delfino OrtaCULTURE, URINE [ADDED]2017-08-24 00:00:00* Test Item Value Reference Range Interpretation Comme nts CULTURE, URINE (test code = 56630) SPECIMEN NUMBER: [id number] Delfino OrtaCULTURE, URINE [ADDED]2017-08-24 00:00:00* Test Item Value Reference Range Interpretation Comme nts CULTURE, URINE (test code = 09164) SPECIMEN NUMBER: [id number] Delfino OrtaCULTURE, URINE [ADDED]2017-08-24 00:00:00* Test Item Value Reference Range Interpretation Comme nts CULTURE, URINE (test code = 45137) SPECIMEN NUMBER: [id number] Delfino OrtaCULTURE, URINE [ADDED]2017-08-24 00:00:00* Test Item Value Reference Range Interpretation Comme nts CULTURE, URINE (test code = 58483) SPECIMEN NUMBER: [id number] Delfino OrtaCULTURE, URINE [ADDED]2017-08-24 00:00:00* Test Item Value Reference Range Interpretation Comme nts CULTURE, URINE (test code = 68083) SPECIMEN NUMBER: [id number] Delfino OrtaCULTURE, URINE [ADDED]2017-08-24 00:00:00* Test Item Value Reference Range Interpretation Comme nts CULTURE, URINE (test code = 53247) SPECIMEN NUMBER: [id number] Delfino OrtaCULTURE, URINE [ADDED]2017-08-24 00:00:00* Test Item Value Reference Range Interpretation Comme nts CULTURE, URINE (test code = 36807) SPECIMEN NUMBER: [id number] Delfino OrtaCULTURE, URINE [ADDED]2017-08-24 00:00:00* Test Item Value Reference Range Interpretation Comme nts CULTURE, URINE (test code = 63803) SPECIMEN NUMBER: [id number] Delfino OrtaCULTURE, URINE [ADDED]2017-08-24 00:00:00* Test Item Value Reference Range Interpretation Comme nts CULTURE, URINE (test code = 70053) SPECIMEN NUMBER: [id number] Delfino OrtaCULTURE, URINE [ADDED]2017-08-24 00:00:00* Test Item Value Reference Range Interpretation Comme nts CULTURE, URINE (test code = 88464) SPECIMEN NUMBER: [id number] Delfino OrtaHEPATITIS C REFLEX [id number] 00:00:00* Test Item Value Reference Range Interpretation Comme nts HEPATITIS C ANTIBODY (test c ode = 4675) NON-REACTIVE Delfino OrtaCBC W/AUTO [id number] 00:00:00* Test Item Value Reference Range Interpretation [...] code = 1016) (NOTE) Delfino OrtaCOMPREHENSIVE METABOLIC [id number] 00:00:00* Test Item Value Reference Range Interpretation Comme nts GLUCOSE (test code = 2217) 92 MG/DL BUN (test code = 2208) 23 MG/DL CREATININE (test code = 2214) 1.27 MG/DL eGFR AMER. (test cod e = 86023) 55 ML/MIN/1.73 eGFR NON- AMER. (test code = 84084) 48 ML/MIN/1.73 CALC BUN/CREAT (test code = [...] 2219) 23 U/L Delfino OrtaHEPATITIS C REFLEX [id number] 00:00:00* Test Item Value Reference Range Interpretation Comme nts HEPATITIS C ANTIBODY (test c ode = 4675) NON-REACTIVE Delfino OrtaCBC W/AUTO [id number] 00:00:00* Test Item Value Reference Range Interpretation [...] (test code = 1016) (NOTE) CBC W/AUTO [id number] 00:00:00* Test Item Value Reference Range Interpretation [...] code = 1016) (NOTE) Delfino OrtaCOMPREHENSIVE METABOLIC [id number] 00:00:00* Test Item Value Reference Range Interpretation Comme nts GLUCOSE (test code = 2217) 92 MG/DL BUN (test code = 2208) 23 MG/DL CREATININE (test code = 2214) 1.27 MG/DL eGFR AMER. (test cod e = 89586) 55 ML/MIN/1.73 eGFR NON- AMER. (test code = 47395) 48 ML/MIN/1.73 CALC BUN/CREAT (test code = [...] = 2219) 23 U/L HEPATITIS C REFLEX [id number] 00:00:00* Test Item Value Reference Range Interpretation Comme nts HEPATITIS C ANTIBODY (test c ode = 4675) NON-REACTIVE COMPREHENSIVE METABOLIC [id number] 00:00:00* Test Item Value Reference Range Interpretation Comme nts GLUCOSE (test code = 2217) 92 MG/DL BUN (test code = 2208) 23 MG/DL CREATININE (test code = 2214) 1.27 MG/DL eGFR AMER. (test cod e = 58447) 55 ML/MIN/1.73 eGFR NON- AMER. (test code = 82025) 48 ML/MIN/1.73 CALC BUN/CREAT (test code = [...] 23 U/L Delfino F AustinHEPATITIS C REFLEX [id number] 00:00:00* Test Item Value Reference Range Interpretation Comme nts HEPATITIS C ANTIBODY (test c ode = 4675) NON-REACTIVE Delfino OrtaCBC W/AUTO [id number] 00:00:00* Test Item Value Reference Range Interpretation [...] (test code = 1016) (NOTE) COMPREHENSIVE METABOLIC [id number] 00:00:00* Test Item Value Reference Range Interpretation Comme nts GLUCOSE (test code = 2217) 92 MG/DL BUN (test code = 2208) 23 MG/DL CREATININE (test code = 2214) 1.27 MG/DL eGFR AMER. (test cod e = 82881) 55 ML/MIN/1.73 eGFR NON- AMER. (test code = 38584) 48 ML/MIN/1.73 CALC BUN/CREAT (test code = [...] = 2219) 23 U/L Delfino OrtaCBC W/AUTO [id number] 00:00:00* Test Item Value Reference Range Interpretation [...] code = 1016) (NOTE) Delfino OrtaCOMPREHENSIVE METABOLIC [id number] 00:00:00* Test Item Value Reference Range Interpretation Comme nts GLUCOSE (test code = 2217) 92 MG/DL BUN (test code = 2208) 23 MG/DL CREATININE (test code = 2214) 1.27 MG/DL eGFR AMER. (test cod e = 17913) 55 ML/MIN/1.73 eGFR NON- AMER. (test code = 74359) 48 ML/MIN/1.73 CALC BUN/CREAT (test code = [...] code = 2219) 23 U/L COMPREHENSIVE METABOLIC [id number] 00:00:00* Test Item Value Reference Range Interpretation Comme nts GLUCOSE (test code = 2217) 92 MG/DL BUN (test code = 2208) 23 MG/DL CREATININE (test code = 2214) 1.27 MG/DL eGFR AMER. (test cod e = 25959) 55 ML/MIN/1.73 eGFR NON- AMER. (test code = 30746) 48 ML/MIN/1.73 CALC BUN/CREAT (test code = [...] 23 U/L Delfino Schumacher YouHEPATITIS C REFLEX [id number] 00:00:00* Test Item Value Reference Range Interpretation Comme nts HEPATITIS C ANTIBODY (test c ode = 4675) NON-REACTIVE HEPATITIS C REFLEX [id number] 00:00:00* Test Item Value Reference Range Interpretation Comme nts HEPATITIS C ANTIBODY (test c ode = 4675) NON-REACTIVE Delfino Schumacher YouCBC W/AUTO [id number] 00:00:00* Test Item Value Reference Range Interpretation [...] (test code = 1016) (NOTE) CBC W/AUTO [id number] 00:00:00* Test Item Value Reference Range Interpretation [...] = 1016) (NOTE) Delfino Schumacher AustinCOMPREHENSIVE METABOLIC [id number] 00:00:00* Test Item Value Reference Range Interpretation Comme nts GLUCOSE (test code = 2217) 92 MG/DL BUN (test code = 2208) 23 MG/DL CREATININE (test code = 2214) 1.27 MG/DL eGFR AMER. (test cod e = 15301) 55 ML/MIN/1.73 eGFR NON- AMER. (test code = 85734) 48 ML/MIN/1.73 CALC BUN/CREAT (test code = [...] code = 2219) 23 U/L COMPREHENSIVE METABOLIC [id number] 00:00:00* Test Item Value Reference Range Interpretation Comme nts GLUCOSE (test code = 2217) 92 MG/DL BUN (test code = 2208) 23 MG/DL CREATININE (test code = 2214) 1.27 MG/DL eGFR AMER. (test cod e = 18951) 55 ML/MIN/1.73 eGFR NON- AMER. (test code = 20714) 48 ML/MIN/1.73 CALC BUN/CREAT (test code = [...] 23 U/L Delfino F AustinHEPATITIS C REFLEX [id number] 00:00:00* Test Item Value Reference Range Interpretation Comme nts HEPATITIS C ANTIBODY (test c ode = 4675) NON-REACTIVE CBC W/AUTO [id number] 00:00:00* Test Item Value Reference Range Interpretation [...] code = 1016) (NOTE) HEPATITIS C REFLEX [id number] 00:00:00* Test Item Value Reference Range Interpretation Comme nts HEPATITIS C ANTIBODY (test c ode = 4675) NON-REACTIVE Delfino OrtaCOMPREHENSIVE METABOLIC [id number] 00:00:00* Test Item Value Reference Range Interpretation Comme nts GLUCOSE (test code = 2217) 92 MG/DL BUN (test code = 2208) 23 MG/DL CREATININE (test code = 2214) 1.27 MG/DL eGFR AMER. (test cod e = 86274) 55 ML/MIN/1.73 eGFR NON- AMER. (test code = 39908) 48 ML/MIN/1.73 CALC BUN/CREAT (test code = [...] = 2219) 23 U/L HEPATITIS C REFLEX [id number] 00:00:00* Test Item Value Reference Range Interpretation Comme nts HEPATITIS C ANTIBODY (test c ode = 4675) NON-REACTIVE Delfino OrtaCBC W/AUTO [id number] 00:00:00* Test Item Value Reference Range Interpretation [...] 1016) (NOTE) Delfino Schumacher MaiaPATITIS C REFLEX [id number] 00:00:00* Test Item Value Reference Range Interpretation Comme nts HEPATITIS C ANTIBODY (test c ode = 4675) NON-REACTIVE COMPREHENSIVE METABOLIC [id number] 00:00:00* Test Item Value Reference Range Interpretation Comme nts GLUCOSE (test code = 2217) 92 MG/DL BUN (test code = 2208) 23 MG/DL CREATININE (test code = 2214) 1.27 MG/DL eGFR AMER. (test cod e = 29525) 55 ML/MIN/1.73 eGFR NON- AMER. (test code = 80598) 48 ML/MIN/1.73 CALC BUN/CREAT (test code = [...] 2219) 23 U/L Delfino OrtaHEPATITIS C REFLEX [id number] 00:00:00* Test Item Value Reference Range Interpretation Comme nts HEPATITIS C ANTIBODY (test c ode = 4675) NON-REACTIVE Delfino OrtaCBC W/AUTO [id number] 00:00:00* Test Item Value Reference Range Interpretation [...] code = 1016) (NOTE) Delfino OrtaCOMPREHENSIVE METABOLIC [id number] 00:00:00* Test Item Value Reference Range Interpretation Comme nts GLUCOSE (test code = 2217) 92 MG/DL BUN (test code = 2208) 23 MG/DL CREATININE (test code = 2214) 1.27 MG/DL eGFR AMER. (test cod e = 49452) 55 ML/MIN/1.73 eGFR NON- AMER. (test code = 71951) 48 ML/MIN/1.73 CALC BUN/CREAT (test code = [...] 23 U/L Delfino Schumacher YouHEPATITIS C REFLEX [id number] 00:00:00* Test Item Value Reference Range Interpretation Comme nts HEPATITIS C ANTIBODY (test c ode = 4675) NON-REACTIVE Delfino OrtaCBC W/AUTO [id number] 00:00:00* Test Item Value Reference Range Interpretation [...] code = 1016) (NOTE) Delfino OrtaCOMPREHENSIVE METABOLIC [id number] 00:00:00* Test Item Value Reference Range Interpretation Comme nts GLUCOSE (test code = 2217) 92 MG/DL BUN (test code = 2208) 23 MG/DL CREATININE (test code = 2214) 1.27 MG/DL eGFR AMER. (test cod e = 77484) 55 ML/MIN/1.73 eGFR NON- AMER. (test code = 84137) 48 ML/MIN/1.73 CALC BUN/CREAT (test code = [...] 2219) 23 U/L Delfino OrtaHEPATITIS C REFLEX [id number] 00:00:00* Test Item Value Reference Range Interpretation Comme nts HEPATITIS C ANTIBODY (test c ode = 4675) NON-REACTIVE Delfino OrtaCBC W/AUTO [id number] 00:00:00* Test Item Value Reference Range Interpretation [...] code = 1016) (NOTE) Delfino OrtaCOMPREHENSIVE METABOLIC [id number] 00:00:00* Test Item Value Reference Range Interpretation Comme nts GLUCOSE (test code = 2217) 92 MG/DL BUN (test code = 2208) 23 MG/DL CREATININE (test code = 2214) 1.27 MG/DL eGFR AMER. (test cod e = 14964) 55 ML/MIN/1.73 eGFR NON- AMER. (test code = 34508) 48 ML/MIN/1.73 CALC BUN/CREAT (test code = [...] 2219) 23 U/L Delfino OrtaHEPATITIS C REFLEX [id number] 00:00:00* Test Item Value Reference Range Interpretation Comme nts HEPATITIS C ANTIBODY (test c ode = 4675) NON-REACTIVE Delfino OrtaCBC W/AUTO [id number] 00:00:00* Test Item Value Reference Range Interpretation [...] code = 1016) (NOTE) Delfino OrtaCOMPREHENSIVE METABOLIC [id number] 00:00:00* Test Item Value Reference Range Interpretation Comme nts GLUCOSE (test code = 2217) 92 MG/DL BUN (test code = 2208) 23 MG/DL CREATININE (test code = 2214) 1.27 MG/DL eGFR AMER. (test cod e = 24760) 55 ML/MIN/1.73 eGFR NON- AMER. (test code = 95970) 48 ML/MIN/1.73 CALC BUN/CREAT (test code = [...] 2219) 23 U/L Delfino OrtaHEPATITIS C REFLEX [id number] 00:00:00* Test Item Value Reference Range Interpretation Comme nts HEPATITIS C ANTIBODY (test c ode = 4613) NON-REACTIVE Delfino OrtaCBC W/AUTO [id number] 00:00:00* Test Item Value Reference Range Interpretation [...] code = 1016) (NOTE) Delfino OrtaCOMPREHENSIVE METABOLIC [id number] 00:00:00* Test Item Value Reference Range Interpretation Comme nts GLUCOSE (test code = 2217) 92 MG/DL BUN (test code = 2208) 23 MG/DL CREATININE (test code = 2214) 1.27 MG/DL eGFR AMER. (test cod e = 84914) 55 ML/MIN/1.73 eGFR NON- AMER. (test code = 80921) 48 ML/MIN/1.73 CALC BUN/CREAT (test code = [...] 2219) 23 U/L Delfino OrtaHEPATITIS C REFLEX [id number] 00:00:00* Test Item Value Reference Range Interpretation Comme nts HEPATITIS C ANTIBODY (test c ode = 4675) NON-REACTIVE Delfino OrtaCBC W/AUTO [id number] 00:00:00* Test Item Value Reference Range Interpretation [...] code = 1016) (NOTE) Delfino OrtaCOMPREHENSIVE METABOLIC [id number] 00:00:00* Test Item Value Reference Range Interpretation Comme nts GLUCOSE (test code = 2217) 92 MG/DL BUN (test code = 2208) 23 MG/DL CREATININE (test code = 2214) 1.27 MG/DL eGFR AMER. (test cod e = 23779) 55 ML/MIN/1.73 eGFR NON- AMER. (test code = 95532) 48 ML/MIN/1.73 CALC BUN/CREAT (test code = [...] 2219) 23 U/L Delfino OrtaHEPATITIS C REFLEX [id number] 00:00:00* Test Item Value Reference Range Interpretation Comme nts HEPATITIS C ANTIBODY (test c ode = 4675) NON-REACTIVE Delfino OrtaCBC W/AUTO [id number] 00:00:00* Test Item Value Reference Range Interpretation [...] code = 1016) (NOTE) Delfino OrtaCOMPREHENSIVE METABOLIC [id number] 00:00:00* Test Item Value Reference Range Interpretation Comme nts GLUCOSE (test code = 2217) 92 MG/DL BUN (test code = 2208) 23 MG/DL CREATININE (test code = 2214) 1.27 MG/DL eGFR AMER. (test cod e = 26554) 55 ML/MIN/1.73 eGFR NON- AMER. (test code = 88629) 48 ML/MIN/1.73 CALC BUN/CREAT (test code = [...] 23 U/L Delfino Schumacher YouHEPATITIS C REFLEX [id number] 00:00:00* Test Item Value Reference Range Interpretation Comme nts HEPATITIS C ANTIBODY (test c ode = 4675) NON-REACTIVE Delfino Schumacher YouCBC W/AUTO [id number] 00:00:00* Test Item Value Reference Range Interpretation [...] = 1016) (NOTE) Delfino Endy YouCOMPREHENSIVE METABOLIC [id number] 00:00:00* Test Item Value Reference Range Interpretation Comme nts GLUCOSE (test code = 2217) 92 MG/DL BUN (test code = 2208) 23 MG/DL CREATININE (test code = 2214) 1.27 MG/DL eGFR AMER. (test cod e = ) 55 ML/MIN/1.73 eGFR NON- AMER. (test code = 37360) 48 ML/MIN/1.73 CALC BUN/CREAT (test code = [...] 2219) 23 U/L Delfino OrtaHEPATITIS C REFLEX [id number] 00:00:00* Test Item Value Reference Range Interpretation Comme nts HEPATITIS C ANTIBODY (test c ode = 4675) NON-REACTIVE Delfino OrtaCBC W/AUTO [id number] 00:00:00* Test Item Value Reference Range Interpretation [...] code = 1016) (NOTE) Delfino OrtaCOMPREHENSIVE METABOLIC [id number] 00:00:00* Test Item Value Reference Range Interpretation Comme nts GLUCOSE (test code = 2217) 92 MG/DL BUN (test code = 2208) 23 MG/DL CREATININE (test code = 2214) 1.27 MG/DL eGFR AMER. (test cod e = 43258) 55 ML/MIN/1.73 eGFR NON- AMER. (test code = 07158) 48 ML/MIN/1.73 CALC BUN/CREAT (test code = [...] 2219) 23 U/L Delfino OrtaHEPATITIS C REFLEX [id number] 00:00:00* Test Item Value Reference Range Interpretation Comme nts HEPATITIS C ANTIBODY (test c ode = 4675) NON-REACTIVE Delfino OrtaCBC W/AUTO [id number] 00:00:00* Test Item Value Reference Range Interpretation [...] code = 1016) (NOTE) Delfino OrtaCOMPREHENSIVE METABOLIC [id number] 00:00:00* Test Item Value Reference Range Interpretation Comme nts GLUCOSE (test code = 2217) 92 MG/DL BUN (test code = 2208) 23 MG/DL CREATININE (test code = 2214) 1.27 MG/DL eGFR AMER. (test cod e = 11292) 55 ML/MIN/1.73 eGFR NON- AMER. (test code = 67406) 48 ML/MIN/1.73 CALC BUN/CREAT (test code = [...] 2219) 23 U/L Delfino OrtaHEPATITIS C REFLEX [id number] 00:00:00* Test Item Value Reference Range Interpretation Comme nts HEPATITIS C ANTIBODY (test c ode = 4675) NON-REACTIVE Delfino OrtaCBC W/AUTO [id number] 00:00:00* Test Item Value Reference Range Interpretation [...] code = 1016) (NOTE) Delfino OrtaCOMPREHENSIVE METABOLIC [id number] 00:00:00* Test Item Value Reference Range Interpretation Comme nts GLUCOSE (test code = 2217) 92 MG/DL BUN (test code = 2208) 23 MG/DL CREATININE (test code = 2214) 1.27 MG/DL eGFR AMER. (test cod e = 40318) 55 ML/MIN/1.73 eGFR NON- AMER. (test code = 48429) 48 ML/MIN/1.73 CALC BUN/CREAT (test code = [...] 2219) 23 U/L Delfino OrtaHEPATITIS C REFLEX [id number] 00:00:00* Test Item Value Reference Range Interpretation Comme nts HEPATITIS C ANTIBODY (test c ode = 4675) NON-REACTIVE Delfino OrtaCBC W/AUTO [id number] 00:00:00* Test Item Value Reference Range Interpretation [...] K/UL COMMENTS (test code = 1016) (NOTE) Delfion OrtaCOMPREHENSIVE METABOLIC [id number] 00:00:00* Test Item Value Reference Range Interpretation Comme nts GLUCOSE (test code = 2217) 92 MG/DL BUN (test code = 2208) 23 MG/DL CREATININE (test code = 2214) 1.27 MG/DL eGFR AMER. (test cod e = 77685) 55 ML/MIN/1.73 eGFR NON- AMER. (test code = 94425) 48 ML/MIN/1.73 CALC BUN/CREAT (test code = [...] 2219) 23 U/L Delfino OrtaHEPATITIS C REFLEX [id number] 00:00:00* Test Item Value Reference Range Interpretation Comme nts HEPATITIS C ANTIBODY (test c ode = 4675) NON-REACTIVE Delfino OrtaCBC W/AUTO [id number] 00:00:00* Test Item Value Reference Range Interpretation [...] code = 1016) (NOTE) Delfino OrtaCOMPREHENSIVE METABOLIC [id number] 00:00:00* Test Item Value Reference Range Interpretation Comme nts GLUCOSE (test code = 2217) 92 MG/DL BUN (test code = 2208) 23 MG/DL CREATININE (test code = 2214) 1.27 MG/DL eGFR AMER. (test cod e = 21819) 55 ML/MIN/1.73 eGFR NON- AMER. (test code = 25052) 48 ML/MIN/1.73 CALC BUN/CREAT (test code = [...] 2219) 23 U/L Delfino OrtaHEPATITIS C REFLEX [id number] 00:00:00* Test Item Value Reference Range Interpretation Comme nts HEPATITIS C ANTIBODY (test c ode = 4675) NON-REACTIVE Delfino OrtaCBC W/AUTO [id number] 00:00:00* Test Item Value Reference Range Interpretation [...] code = 1016) (NOTE) Delfino OrtaCOMPREHENSIVE METABOLIC [id number] 00:00:00* Test Item Value Reference Range Interpretation Comme nts GLUCOSE (test code = 2217) 92 MG/DL BUN (test code = 2208) 23 MG/DL CREATININE (test code = 2214) 1.27 MG/DL eGFR AMER. (test cod e = 50351) 55 ML/MIN/1.73 eGFR NON- AMER. (test code = 79643) 48 ML/MIN/1.73 CALC BUN/CREAT (test code = [...] code = 2219) 23 U/L Delfino F YouHEPATITIS C REFLEX [id number] 00:00:00* Test Item Value Reference Range Interpretation Comme nts HEPATITIS C ANTIBODY (test c ode = 4675) NON-REACTIVE Delfino Schumacher YouCBC W/AUTO [id number] 00:00:00* Test Item Value Reference Range Interpretation [...] = 1016) (NOTE) Delfino Endy YouCOMPREHENSIVE METABOLIC [id number] 00:00:00* Test Item Value Reference Range Interpretation Comme nts GLUCOSE (test code = 2217) 92 MG/DL BUN (test code = 2208) 23 MG/DL CREATININE (test code = 2214) 1.27 MG/DL eGFR AMER. (test cod e = ) 55 ML/MIN/1.73 eGFR NON- AMER. (test code = 87951) 48 ML/MIN/1.73 CALC BUN/CREAT (test code = [...] 2219) 23 U/L Delfino OrtaHEPATITIS C REFLEX [id number] 00:00:00* Test Item Value Reference Range Interpretation Comme nts HEPATITIS C ANTIBODY (test c ode = 4675) NON-REACTIVE [facility] [id number] 00:00:00* Test Item Value Reference Range Interpretation [...] code = 1016) (NOTE) Delfino OrtaCOMPREHENSIVE METABOLIC [id number] 00:00:00* Test Item Value Reference Range Interpretation Comme nts GLUCOSE (test code = 2217) 92 MG/DL BUN (test code = 2208) 23 MG/DL CREATININE (test code = 2214) 1.27 MG/DL eGFR AMER. (test cod e = 99122) 55 ML/MIN/1.73 eGFR NON- AMER. (test code = 78979) 48 ML/MIN/1.73 CALC BUN/CREAT (test code = [...] 2219) 23 U/L Delfino OrtaHEPATITIS C REFLEX [id number] 00:00:00* Test Item Value Reference Range Interpretation Comme nts HEPATITIS C ANTIBODY (test c ode = 4675) NON-REACTIVE Delfino OrtaCBC W/AUTO [id number] 00:00:00* Test Item Value Reference Range Interpretation [...] code = 1016) (NOTE) Delfino OrtaCOMPREHENSIVE METABOLIC [id number] 00:00:00* Test Item Value Reference Range Interpretation Comme nts GLUCOSE (test code = 2217) 92 MG/DL BUN (test code = 2208) 23 MG/DL CREATININE (test code = 2214) 1.27 MG/DL eGFR AMER. (test cod e = 25429) 55 ML/MIN/1.73 eGFR NON- AMER. (test code = 27793) 48 ML/MIN/1.73 CALC BUN/CREAT (test code = [...] 2219) 23 U/L Delfino OrtaHEPATITIS C REFLEX [id number] 00:00:00* Test Item Value Reference Range Interpretation Comme nts HEPATITIS C ANTIBODY (test c ode = 4675) NON-REACTIVE Delfino OrtaCBC W/AUTO [id number] 00:00:00* Test Item Value Reference Range Interpretation [...] code = 1016) (NOTE) Delfino OrtaCBC W/AUTO [id number] 00:00:00* Test Item Value Reference Range Interpretation [...] code = 1016) (NOTE) Delfino OrtaCOMPREHENSIVE METABOLIC [id number] 00:00:00* Test Item Value Reference Range Interpretation Comme nts GLUCOSE (test code = 2217) 92 MG/DL BUN (test code = 2208) 23 MG/DL CREATININE (test code = 2214) 1.27 MG/DL eGFR AMER. (test cod e = 25191) 55 ML/MIN/1.73 eGFR NON- AMER. (test code = 47705) 48 ML/MIN/1.73 CALC BUN/CREAT (test code = [...] = 2219) 23 U/L Delfino OrtaCOMPREHENSIVE METABOLIC [id number] 00:00:00* Test Item Value Reference Range Interpretation Comme nts GLUCOSE (test code = 2217) 88 MG/DL BUN (test code = 2208) 24 MG/DL CREATININE (test code = 2214) 0.94 MG/DL eGFR AMER. (test cod e = 96104) 80 ML/MIN/1.73 eGFR NON- AMER. (test code = 20745) 69 ML/MIN/1.73 CALC BUN/CREAT (test code = [...] = 2219) 10 U/L Delfino F AustinLIPID [id number] 00:00:00* Test Item Value Reference Range Interpretation Comme nts CHOLESTEROL (test code = 2210) 211 MG/DL TRIGLYCERIDES (test code = 2232) 52 MG/DL HDL CHOLESTEROL (test code = 2220) 90 MG/DL CALC LDL CHOL (test code = 2237) 111 MG/DL RISK RATIO LDL/HDL (test cod e = 2238) 1.23 RATIO Delfino Schumacher [facility] W/AUTO [id number] 00:00:00* Test Item Value Reference Range Interpretation [...] (test code = 1016) (NOTE) Delfino Schumacher [facility] W/AUTO [id number] 00:00:00* Test Item Value Reference Range Interpretation [...] code = 1016) (NOTE) Delfino OrtaCOMPREHENSIVE METABOLIC [id number] 00:00:00* Test Item Value Reference Range Interpretation Comme nts GLUCOSE (test code = 2217) 88 MG/DL BUN (test code = 2208) 24 MG/DL CREATININE (test code = 2214) 0.94 MG/DL eGFR AMER. (test cod e = 99848) 80 ML/MIN/1.73 eGFR NON- AMER. (test code = 98407) 69 ML/MIN/1.73 CALC BUN/CREAT (test code = [...] code = 2219) 10 U/L Delfino OrtaLIPID [id number] 00:00:00* Test Item Value Reference Range Interpretation Comme nts CHOLESTEROL (test code = 2210) 211 MG/DL TRIGLYCERIDES (test code = 2232) 52 MG/DL HDL CHOLESTEROL (test code = 2220) 90 MG/DL CALC LDL CHOL (test code = 2237) 111 MG/DL RISK RATIO LDL/HDL (test cod e = 2238) 1.23 RATIO Delfino OrtaCBC W/AUTO [id number] 00:00:00* Test Item Value Reference Range Interpretation [...] (test code = 1016) (NOTE) Delfino Schumacher [facility] W/AUTO [id number] 00:00:00* Test Item Value Reference Range Interpretation [...] (test code = 1016) (NOTE) COMPREHENSIVE METABOLIC [id number] 00:00:00* Test Item Value Reference Range Interpretation Comme nts GLUCOSE (test code = 2217) 88 MG/DL BUN (test code = 2208) 24 MG/DL CREATININE (test code = 2214) 0.94 MG/DL eGFR AMER. (test cod e = 03393) 80 ML/MIN/1.73 eGFR NON- AMER. (test code = 80734) 69 ML/MIN/1.73 CALC BUN/CREAT (test code = [...] code = 2219) 10 U/L COMPREHENSIVE METABOLIC [id number] 00:00:00* Test Item Value Reference Range Interpretation Comme nts GLUCOSE (test code = 2217) 88 MG/DL BUN (test code = 2208) 24 MG/DL CREATININE (test code = 2214) 0.94 MG/DL eGFR AMER. (test cod e = 56903) 80 ML/MIN/1.73 eGFR NON- AMER. (test code = 60535) 69 ML/MIN/1.73 CALC BUN/CREAT (test code = [...] = 2219) 10 U/L Delfino F AustinLIPID [id number] 00:00:00* Test Item Value Reference Range Interpretation Comme nts CHOLESTEROL (test code = 2210) 211 MG/DL TRIGLYCERIDES (test code = 2232) 52 MG/DL HDL CHOLESTEROL (test code = 2220) 90 MG/DL CALC LDL CHOL (test code = 2237) 111 MG/DL RISK RATIO LDL/HDL (test cod e = 2238) 1.23 RATIO LIPID [id number] 00:00:00* Test Item Value Reference Range Interpretation Comme nts CHOLESTEROL (test code = 2210) 211 MG/DL TRIGLYCERIDES (test code = 2232) 52 MG/DL HDL CHOLESTEROL (test code = 2220) 90 MG/DL CALC LDL CHOL (test code = 2237) 111 MG/DL RISK RATIO LDL/HDL (test cod e = 2238) 1.23 RATIO Delfino Schumacher [facility]/AUTO [id number] 00:00:00* Test Item Value Reference Range Interpretation [...] (test code = 1016) (NOTE) CBC W/AUTO [id number] 00:00:00* Test Item Value Reference Range Interpretation [...] code = 1016) (NOTE) Delfino OrtaCOMPREHENSIVE METABOLIC [id number] 00:00:00* Test Item Value Reference Range Interpretation Comme nts GLUCOSE (test code = 2217) 88 MG/DL BUN (test code = 2208) 24 MG/DL CREATININE (test code = 2214) 0.94 MG/DL eGFR AMER. (test cod e = 90542) 80 ML/MIN/1.73 eGFR NON- AMER. (test code = 88899) 69 ML/MIN/1.73 CALC BUN/CREAT (test code = [...] code = 2219) 10 U/L COMPREHENSIVE METABOLIC [id number] 00:00:00* Test Item Value Reference Range Interpretation Comme nts GLUCOSE (test code = 2217) 88 MG/DL BUN (test code = 2208) 24 MG/DL CREATININE (test code = 2214) 0.94 MG/DL eGFR AMER. (test cod e = 69351) 80 ML/MIN/1.73 eGFR NON- AMER. (test code = 99365) 69 ML/MIN/1.73 CALC BUN/CREAT (test code = [...] = 2219) 10 U/L Delfino Schumacher YouLIPID [id number] 00:00:00* Test Item Value Reference Range Interpretation Comme nts CHOLESTEROL (test code = 2210) 211 MG/DL TRIGLYCERIDES (test code = 2232) 52 MG/DL HDL CHOLESTEROL (test code = 2220) 90 MG/DL CALC LDL CHOL (test code = 2237) 111 MG/DL RISK RATIO LDL/HDL (test cod e = 2238) 1.23 RATIO LIPID [id number] 00:00:00* Test Item Value Reference Range Interpretation Comme nts CHOLESTEROL (test code = 2210) 211 MG/DL TRIGLYCERIDES (test code = 2232) 52 MG/DL HDL CHOLESTEROL (test code = 2220) 90 MG/DL CALC LDL CHOL (test code = 2237) 111 MG/DL RISK RATIO LDL/HDL (test cod e = 2238) 1.23 RATIO Delfino Schumacher YouCOMPREHENSIVE METABOLIC [id number] 00:00:00* Test Item Value Reference Range Interpretation Comme nts GLUCOSE (test code = 2217) 88 MG/DL BUN (test code = 2208) 24 MG/DL CREATININE (test code = 2214) 0.94 MG/DL eGFR AMER. (test cod e = 67596) 80 ML/MIN/1.73 eGFR NON- AMER. (test code = 47752) 69 ML/MIN/1.73 CALC BUN/CREAT (test code = [...] (test code = 2219) 10 U/L Delfino OrtaCBC W/AUTO [id number] 00:00:00* Test Item Value Reference Range Interpretation [...] COMMENTS (test code = 1016) (NOTE) LIPID [id number] 00:00:00* Test Item Value Reference Range Interpretation Comme nts CHOLESTEROL (test code = 2210) 211 MG/DL TRIGLYCERIDES (test code = 2232) 52 MG/DL HDL CHOLESTEROL (test code = 2220) 90 MG/DL CALC LDL CHOL (test code = 2237) 111 MG/DL RISK RATIO LDL/HDL (test cod e = 2238) 1.23 RATIO Delfino OrtaCOMPREHENSIVE METABOLIC [id number] 00:00:00* Test Item Value Reference Range Interpretation Comme nts GLUCOSE (test code = 2217) 88 MG/DL BUN (test code = 2208) 24 MG/DL CREATININE (test code = 2214) 0.94 MG/DL eGFR AMER. (test cod e = 86089) 80 ML/MIN/1.73 eGFR NON- AMER. (test code = 35258) 69 ML/MIN/1.73 CALC BUN/CREAT (test code = [...] code = 2219) 10 U/L CBC W/AUTO [id number] 00:00:00* Test Item Value Reference Range Interpretation [...] = 1016) (NOTE) Delfino F AustinCOMPREHENSIVE METABOLIC [id number] 00:00:00* Test Item Value Reference Range Interpretation Comme nts GLUCOSE (test code = 2217) 88 MG/DL BUN (test code = 2208) 24 MG/DL CREATININE (test code = 2214) 0.94 MG/DL eGFR AMER. (test cod e = 64876) 80 ML/MIN/1.73 eGFR NON- AMER. (test code = 06301) 69 ML/MIN/1.73 CALC BUN/CREAT (test code = [...] code = 2219) 10 U/L Delfino OrtaLIPID [id number] 00:00:00* Test Item Value Reference Range Interpretation Comme nts CHOLESTEROL (test code = 2210) 211 MG/DL TRIGLYCERIDES (test code = 2232) 52 MG/DL HDL CHOLESTEROL (test code = 2220) 90 MG/DL CALC LDL CHOL (test code = 2237) 111 MG/DL RISK RATIO LDL/HDL (test cod e = 2238) 1.23 RATIO CBC W/AUTO [id number] 00:00:00* Test Item Value Reference Range Interpretation [...] COMMENTS (test code = 1016) (NOTE) LIPID [id number] 00:00:00* Test Item Value Reference Range Interpretation Comme nts CHOLESTEROL (test code = 2210) 211 MG/DL TRIGLYCERIDES (test code = 2232) 52 MG/DL HDL CHOLESTEROL (test code = 2220) 90 MG/DL CALC LDL CHOL (test code = 2237) 111 MG/DL RISK RATIO LDL/HDL (test cod e = 2238) 1.23 RATIO Delfino F AustinCOMPREHENSIVE METABOLIC [id number] 00:00:00* Test Item Value Reference Range Interpretation Comme nts GLUCOSE (test code = 2217) 88 MG/DL BUN (test code = 2208) 24 MG/DL CREATININE (test code = 2214) 0.94 MG/DL eGFR AMER. (test cod e = 79008) 80 ML/MIN/1.73 eGFR NON- AMER. (test code = 83225) 69 ML/MIN/1.73 CALC BUN/CREAT (test code = [...] code = 2219) 10 U/L CBC W/AUTO [id number] 00:00:00* Test Item Value Reference Range Interpretation [...] code = 1016) (NOTE) Delfino Schumacher AustinLIPID [id number] 00:00:00* Test Item Value Reference Range Interpretation Comme nts CHOLESTEROL (test code = 2210) 211 MG/DL TRIGLYCERIDES (test code = 2232) 52 MG/DL HDL CHOLESTEROL (test code = 2220) 90 MG/DL CALC LDL CHOL (test code = 2237) 111 MG/DL RISK RATIO LDL/HDL (test cod e = 2238) 1.23 RATIO COMPREHENSIVE METABOLIC [id number] 00:00:00* Test Item Value Reference Range Interpretation Comme nts GLUCOSE (test code = 2217) 88 MG/DL BUN (test code = 2208) 24 MG/DL CREATININE (test code = 2214) 0.94 MG/DL eGFR AMER. (test cod e = 14779) 80 ML/MIN/1.73 eGFR NON- AMER. (test code = 71801) 69 ML/MIN/1.73 CALC BUN/CREAT (test code = [...] code = 2219) 10 U/L Delfino OrtaLIPID [id number] 00:00:00* Test Item Value Reference Range Interpretation Comme nts CHOLESTEROL (test code = 2210) 211 MG/DL TRIGLYCERIDES (test code = 2232) 52 MG/DL HDL CHOLESTEROL (test code = 2220) 90 MG/DL CALC LDL CHOL (test code = 2237) 111 MG/DL RISK RATIO LDL/HDL (test cod e = 2238) 1.23 RATIO Delfino Schumacher YouCBC W/AUTO [id number] 00:00:00* Test Item Value Reference Range Interpretation [...] = 1016) (NOTE) Delfino Schumacher YouCOMPREHENSIVE METABOLIC [id number] 00:00:00* Test Item Value Reference Range Interpretation Comme nts GLUCOSE (test code = 2217) 88 MG/DL BUN (test code = 2208) 24 MG/DL CREATININE (test code = 2214) 0.94 MG/DL eGFR AMER. (test cod e = 38753) 80 ML/MIN/1.73 eGFR NON- AMER. (test code = 69743) 69 ML/MIN/1.73 CALC BUN/CREAT (test code = [...] code = 2219) 10 U/L Delfino OrtaLIPID [id number] 00:00:00* Test Item Value Reference Range Interpretation Comme nts CHOLESTEROL (test code = 2210) 211 MG/DL TRIGLYCERIDES (test code = 2232) 52 MG/DL HDL CHOLESTEROL (test code = 2220) 90 MG/DL CALC LDL CHOL (test code = 2237) 111 MG/DL RISK RATIO LDL/HDL (test cod e = 2238) 1.23 RATIO Delfino Schumacher YouCBC W/AUTO [id number] 00:00:00* Test Item Value Reference Range Interpretation [...] code = 1016) (NOTE) Delfino OrtaCOMPREHENSIVE METABOLIC [id number] 00:00:00* Test Item Value Reference Range Interpretation Comme nts GLUCOSE (test code = 2217) 88 MG/DL BUN (test code = 2208) 24 MG/DL CREATININE (test code = 2214) 0.94 MG/DL eGFR AMER. (test cod e = 87964) 80 ML/MIN/1.73 eGFR NON- AMER. (test code = 80095) 69 ML/MIN/1.73 CALC BUN/CREAT (test code = [...] code = 2219) 10 U/L Delfino OrtaLIPID [id number] 00:00:00* Test Item Value Reference Range Interpretation Comme nts CHOLESTEROL (test code = 2210) 211 MG/DL TRIGLYCERIDES (test code = 2232) 52 MG/DL HDL CHOLESTEROL (test code = 2220) 90 MG/DL CALC LDL CHOL (test code = 2237) 111 MG/DL RISK RATIO LDL/HDL (test cod e = 2238) 1.23 RATIO Delfino OrtaCBC W/AUTO [id number] 00:00:00* Test Item Value Reference Range Interpretation [...] = 1016) (NOTE) Delfino Schumacher YouCOMPREHENSIVE METABOLIC [id number] 00:00:00* Test Item Value Reference Range Interpretation Comme nts GLUCOSE (test code = 2217) 88 MG/DL BUN (test code = 2208) 24 MG/DL CREATININE (test code = 2214) 0.94 MG/DL eGFR AMER. (test cod e = 08971) 80 ML/MIN/1.73 eGFR NON- AMER. (test code = 37582) 69 ML/MIN/1.73 CALC BUN/CREAT (test code = [...] code = 2219) 10 U/L Delfino OrtaLIPID [id number] 00:00:00* Test Item Value Reference Range Interpretation Comme nts CHOLESTEROL (test code = 2210) 211 MG/DL TRIGLYCERIDES (test code = 2232) 52 MG/DL HDL CHOLESTEROL (test code = 2220) 90 MG/DL CALC LDL CHOL (test code = 2237) 111 MG/DL RISK RATIO LDL/HDL (test cod e = 2238) 1.23 RATIO [facility] [id number] 00:00:00* Test Item Value Reference Range Interpretation [...] = 1016) (NOTE) Delfino Schumacher YouCOMPREHENSIVE METABOLIC [id number] 00:00:00* Test Item Value Reference Range Interpretation Comme nts GLUCOSE (test code = 2217) 88 MG/DL BUN (test code = 2208) 24 MG/DL CREATININE (test code = 2214) 0.94 MG/DL eGFR AMER. (test cod e = 59688) 80 ML/MIN/1.73 eGFR NON- AMER. (test code = 82068) 69 ML/MIN/1.73 CALC BUN/CREAT (test code = [...] = 2219) 10 U/L Delfino Schumacher AustinLIPID [id number] 00:00:00* Test Item Value Reference Range Interpretation Comme nts CHOLESTEROL (test code = 2210) 211 MG/DL TRIGLYCERIDES (test code = 2232) 52 MG/DL HDL CHOLESTEROL (test code = 2220) 90 MG/DL CALC LDL CHOL (test code = 2237) 111 MG/DL RISK RATIO LDL/HDL (test cod e = 2238) 1.23 RATIO Delfino OrtaCBC W/AUTO [id number] 00:00:00* Test Item Value Reference Range Interpretation [...] code = 1016) (NOTE) Delfino OrtaCOMPREHENSIVE METABOLIC [id number] 00:00:00* Test Item Value Reference Range Interpretation Comme nts GLUCOSE (test code = 2217) 88 MG/DL BUN (test code = 2208) 24 MG/DL CREATININE (test code = 2214) 0.94 MG/DL eGFR AMER. (test cod e = 33299) 80 ML/MIN/1.73 eGFR NON- AMER. (test code = 57886) 69 ML/MIN/1.73 CALC BUN/CREAT (test code = [...] code = 2219) 10 U/L Delfino F FlagstaffLIPID [id number] 00:00:00* Test Item Value Reference Range Interpretation Comme nts CHOLESTEROL (test code = 2210) 211 MG/DL TRIGLYCERIDES (test code = 2232) 52 MG/DL HDL CHOLESTEROL (test code = 2220) 90 MG/DL CALC LDL CHOL (test code = 2237) 111 MG/DL RISK RATIO LDL/HDL (test cod e = 2238) 1.23 RATIO [facility] [id number] 00:00:00* Test Item Value Reference Range Interpretation [...] code = 1016) (NOTE) Delfino OrtaCOMPREHENSIVE METABOLIC [id number] 00:00:00* Test Item Value Reference Range Interpretation Comme nts GLUCOSE (test code = 2217) 88 MG/DL BUN (test code = 2208) 24 MG/DL CREATININE (test code = 2214) 0.94 MG/DL eGFR AMER. (test cod e = 13675) 80 ML/MIN/1.73 eGFR NON- AMER. (test code = 79059) 69 ML/MIN/1.73 CALC BUN/CREAT (test code = [...] code = 2219) 10 U/L Delfino OrtaLIPID [id number] 00:00:00* Test Item Value Reference Range Interpretation Comme nts CHOLESTEROL (test code = 2210) 211 MG/DL TRIGLYCERIDES (test code = 2232) 52 MG/DL HDL CHOLESTEROL (test code = 2220) 90 MG/DL CALC LDL CHOL (test code = 2237) 111 MG/DL RISK RATIO LDL/HDL (test cod e = 2238) 1.23 RATIO Delfino OrtaCBC W/AUTO [id number] 00:00:00* Test Item Value Reference Range Interpretation [...] code = 1016) (NOTE) Delfino OrtaCOMPREHENSIVE METABOLIC [id number] 00:00:00* Test Item Value Reference Range Interpretation Comme nts GLUCOSE (test code = 2217) 88 MG/DL BUN (test code = 2208) 24 MG/DL CREATININE (test code = 2214) 0.94 MG/DL eGFR AMER. (test cod e = 51139) 80 ML/MIN/1.73 eGFR NON- AMER. (test code = 01830) 69 ML/MIN/1.73 CALC BUN/CREAT (test code = [...] code = 2219) 10 U/L Delfino OrtaLIPID [id number] 00:00:00* Test Item Value Reference Range Interpretation Comme nts CHOLESTEROL (test code = 2210) 211 MG/DL TRIGLYCERIDES (test code = 2232) 52 MG/DL HDL CHOLESTEROL (test code = 2220) 90 MG/DL CALC LDL CHOL (test code = 2237) 111 MG/DL RISK RATIO LDL/HDL (test cod e = 2238) 1.23 RATIO Delfino OrtaCBC W/AUTO [id number] 00:00:00* Test Item Value Reference Range Interpretation [...] code = 1016) (NOTE) Delfino OrtaCOMPREHENSIVE METABOLIC [id number] 00:00:00* Test Item Value Reference Range Interpretation Comme nts GLUCOSE (test code = 2217) 88 MG/DL BUN (test code = 2208) 24 MG/DL CREATININE (test code = 2214) 0.94 MG/DL eGFR AMER. (test cod e = 77011) 80 ML/MIN/1.73 eGFR NON- AMER. (test code = 43481) 69 ML/MIN/1.73 CALC BUN/CREAT (test code = [...] code = 2219) 10 U/L Delfino OrtaLIPID [id number] 00:00:00* Test Item Value Reference Range Interpretation Comme nts CHOLESTEROL (test code = 2210) 211 MG/DL TRIGLYCERIDES (test code = 2232) 52 MG/DL HDL CHOLESTEROL (test code = 2220) 90 MG/DL CALC LDL CHOL (test code = 2237) 111 MG/DL RISK RATIO LDL/HDL (test cod e = 2238) 1.23 RATIO Delfino OrtaCBC W/AUTO [id number] 00:00:00* Test Item Value Reference Range Interpretation [...] code = 1016) (NOTE) Delfino OrtaCOMPREHENSIVE METABOLIC [id number] 00:00:00* Test Item Value Reference Range Interpretation Comme nts GLUCOSE (test code = 2217) 88 MG/DL BUN (test code = 2208) 24 MG/DL CREATININE (test code = 2214) 0.94 MG/DL eGFR AMER. (test cod e = 62377) 80 ML/MIN/1.73 eGFR NON- AMER. (test code = 84827) 69 ML/MIN/1.73 CALC BUN/CREAT (test code = [...] code = 2219) 10 U/L Delfino OrtaLIPID [id number] 00:00:00* Test Item Value Reference Range Interpretation Comme nts CHOLESTEROL (test code = 2210) 211 MG/DL TRIGLYCERIDES (test code = 2232) 52 MG/DL HDL CHOLESTEROL (test code = 2220) 90 MG/DL CALC LDL CHOL (test code = 2237) 111 MG/DL RISK RATIO LDL/HDL (test cod e = 2238) 1.23 RATIO Delfino OrtaCBC W/AUTO [id number] 00:00:00* Test Item Value Reference Range Interpretation [...] code = 1016) (NOTE) Delfino OrtaCOMPREHENSIVE METABOLIC [id number] 00:00:00* Test Item Value Reference Range Interpretation Comme nts GLUCOSE (test code = 2217) 88 MG/DL BUN (test code = 2208) 24 MG/DL CREATININE (test code = 2214) 0.94 MG/DL eGFR AMER. (test cod e = 99992) 80 ML/MIN/1.73 eGFR NON- AMER. (test code = 70066) 69 ML/MIN/1.73 CALC BUN/CREAT (test code = [...] code = 2219) 10 U/L Delfino OrtaLIPID [id number] 00:00:00* Test Item Value Reference Range Interpretation Comme nts CHOLESTEROL (test code = 2210) 211 MG/DL TRIGLYCERIDES (test code = 2232) 52 MG/DL HDL CHOLESTEROL (test code = 2220) 90 MG/DL CALC LDL CHOL (test code = 2237) 111 MG/DL RISK RATIO LDL/HDL (test cod e = 2238) 1.23 RATIO Delfino OrtaCBC W/AUTO [id number] 00:00:00* Test Item Value Reference Range Interpretation [...] code = 1016) (NOTE) Delfino OrtaCOMPREHENSIVE METABOLIC [id number] 00:00:00* Test Item Value Reference Range Interpretation Comme nts GLUCOSE (test code = 2217) 88 MG/DL BUN (test code = 2208) 24 MG/DL CREATININE (test code = 2214) 0.94 MG/DL eGFR AMER. (test cod e = 28581) 80 ML/MIN/1.73 eGFR NON- AMER. (test code = 19198) 69 ML/MIN/1.73 CALC BUN/CREAT (test code = [...] code = 2219) 10 U/L Delfino OrtaLIPID [id number] 00:00:00* Test Item Value Reference Range Interpretation Comme nts CHOLESTEROL (test code = 2210) 211 MG/DL TRIGLYCERIDES (test code = 2232) 52 MG/DL HDL CHOLESTEROL (test code = 2220) 90 MG/DL CALC LDL CHOL (test code = 2237) 111 MG/DL RISK RATIO LDL/HDL (test cod e = 2238) 1.23 RATIO Delfino OrtaCBC W/AUTO [id number] 00:00:00* Test Item Value Reference Range Interpretation [...] = 1016) (NOTE) Delfino Schumacher YouCOMPREHENSIVE METABOLIC [id number] 00:00:00* Test Item Value Reference Range Interpretation Comme nts GLUCOSE (test code = 2217) 88 MG/DL BUN (test code = 2208) 24 MG/DL CREATININE (test code = 2214) 0.94 MG/DL eGFR AMER. (test cod e = 39368) 80 ML/MIN/1.73 eGFR NON- AMER. (test code = 90857) 69 ML/MIN/1.73 CALC BUN/CREAT (test code = [...] code = 2219) 10 U/L Delfino OrtaLIPID [id number] 00:00:00* Test Item Value Reference Range Interpretation Comme nts CHOLESTEROL (test code = 2210) 211 MG/DL TRIGLYCERIDES (test code = 2232) 52 MG/DL HDL CHOLESTEROL (test code = 2220) 90 MG/DL CALC LDL CHOL (test code = 2237) 111 MG/DL RISK RATIO LDL/HDL (test cod e = 2238) 1.23 RATIO Delfino OrtaCBC W/AUTO [id number] 00:00:00* Test Item Value Reference Range Interpretation [...] code = 1016) (NOTE) Delfino OrtaCOMPREHENSIVE METABOLIC [id number] 00:00:00* Test Item Value Reference Range Interpretation Comme nts GLUCOSE (test code = 2217) 88 MG/DL BUN (test code = 2208) 24 MG/DL CREATININE (test code = 2214) 0.94 MG/DL eGFR AMER. (test cod e = 56077) 80 ML/MIN/1.73 eGFR NON- AMER. (test code = 73493) 69 ML/MIN/1.73 CALC BUN/CREAT (test code = [...] = 2219) 10 U/L Delfino Endy OrtaLIPID [id number] 00:00:00* Test Item Value Reference Range Interpretation Comme nts CHOLESTEROL (test code = 2210) 211 MG/DL TRIGLYCERIDES (test code = 2232) 52 MG/DL HDL CHOLESTEROL (test code = 2220) 90 MG/DL CALC LDL CHOL (test code = 2237) 111 MG/DL RISK RATIO LDL/HDL (test cod e = 2238) 1.23 RATIO Delfino Schumacher YouCBC W/AUTO [id number] 00:00:00* Test Item Value Reference Range Interpretation [...] code = 1016) (NOTE) Delfino OrtaCOMPREHENSIVE METABOLIC [id number] 00:00:00* Test Item Value Reference Range Interpretation Comme nts GLUCOSE (test code = 2217) 88 MG/DL BUN (test code = 2208) 24 MG/DL CREATININE (test code = 2214) 0.94 MG/DL eGFR AMER. (test cod e = 62291) 80 ML/MIN/1.73 eGFR NON- AMER. (test code = 39691) 69 ML/MIN/1.73 CALC BUN/CREAT (test code = [...] code = 2219) 10 U/L Delfino OrtaLIPID [id number] 00:00:00* Test Item Value Reference Range Interpretation Comme nts CHOLESTEROL (test code = 2210) 211 MG/DL TRIGLYCERIDES (test code = 2232) 52 MG/DL HDL CHOLESTEROL (test code = 2220) 90 MG/DL CALC LDL CHOL (test code = 2237) 111 MG/DL RISK RATIO LDL/HDL (test cod e = 2238) 1.23 RATIO Delfinosurinder OrtaCBC W/AUTO [id number] 00:00:00* Test Item Value Reference Range Interpretation [...] code = 1016) (NOTE) Delfino OrtaCOMPREHENSIVE METABOLIC [id number] 00:00:00* Test Item Value Reference Range Interpretation Comme nts GLUCOSE (test code = 2217) 88 MG/DL BUN (test code = 2208) 24 MG/DL CREATININE (test code = 2214) 0.94 MG/DL eGFR AMER. (test cod e = 52213) 80 ML/MIN/1.73 eGFR NON- AMER. (test code = 76178) 69 ML/MIN/1.73 CALC BUN/CREAT (test code = [...] code = 2219) 10 U/L Delfino OrtaLIPID [id number] 00:00:00* Test Item Value Reference Range Interpretation Comme nts CHOLESTEROL (test code = 2210) 211 MG/DL TRIGLYCERIDES (test code = 2232) 52 MG/DL HDL CHOLESTEROL (test code = 2220) 90 MG/DL CALC LDL CHOL (test code = 2237) 111 MG/DL RISK RATIO LDL/HDL (test cod e = 2238) 1.23 RATIO Delfino Schumacher YouCBC W/AUTO [id number] 00:00:00* Test Item Value Reference Range Interpretation [...] = 1016) (NOTE) Delfino Schumacher YouCOMPREHENSIVE METABOLIC [id number] 00:00:00* Test Item Value Reference Range Interpretation Comme nts GLUCOSE (test code = 2217) 88 MG/DL BUN (test code = 2208) 24 MG/DL CREATININE (test code = 2214) 0.94 MG/DL eGFR AMER. (test cod e = 30219) 80 ML/MIN/1.73 eGFR NON- AMER. (test code = 04829) 69 ML/MIN/1.73 CALC BUN/CREAT (test code = [...] code = 2219) 10 U/L Delfino OrtaLIPID [id number] 00:00:00* Test Item Value Reference Range Interpretation Comme nts CHOLESTEROL (test code = 2210) 211 MG/DL TRIGLYCERIDES (test code = 2232) 52 MG/DL HDL CHOLESTEROL (test code = 2220) 90 MG/DL CALC LDL CHOL (test code = 2237) 111 MG/DL RISK RATIO LDL/HDL (test cod e = 2238) 1.23 RATIO Delfino OrtaCBC W/AUTO [id number] 00:00:00* Test Item Value Reference Range Interpretation [...] code = 1016) (NOTE) Delfino OrtaCOMPREHENSIVE METABOLIC [id number] 00:00:00* Test Item Value Reference Range Interpretation Comme nts GLUCOSE (test code = 2217) 88 MG/DL BUN (test code = 2208) 24 MG/DL CREATININE (test code = 2214) 0.94 MG/DL eGFR AMER. (test cod e = 53279) 80 ML/MIN/1.73 eGFR NON- AMER. (test code = 22233) 69 ML/MIN/1.73 CALC BUN/CREAT (test code = [...] code = 2219) 10 U/L Delfino OrtaLIPID [id number] 00:00:00* Test Item Value Reference Range Interpretation Comme nts CHOLESTEROL (test code = 2210) 211 MG/DL TRIGLYCERIDES (test code = 2232) 52 MG/DL HDL CHOLESTEROL (test code = 2220) 90 MG/DL CALC LDL CHOL (test code = 2237) 111 MG/DL RISK RATIO LDL/HDL (test cod e = 2238) 1.23 RATIO Delfino Schumacher YouCBC W/AUTO [id number] 00:00:00* Test Item Value Reference Range Interpretation [...] code = 1016) (NOTE) Delfino Schumacher YouVITAMIN D, 25 [id number] 00:00:00* Test Item Value Reference Range Interpretation Comme nts VITAMIN D, 25 OH (test code = 4958) 36 NG/ML Delfino F AustinURIC [id number] 00:00:00* Test Item Value Reference Range Interpretation Comme nts URIC ACID (test code = 2233) 7.5 MG/DL Delfino OrtaVITAMIN D, 25 [id number] 00:00:00* Test Item Value Reference Range Interpretation Comme nts VITAMIN D, 25 OH (test code = 4958) 36 NG/ML Delfino Schumacher AustinURIC [id number] 00:00:00* Test Item Value Reference Range Interpretation Comme nts URIC ACID (test code = 2233) 7.5 MG/DL URIC [id number] 00:00:00* Test Item Value Reference Range Interpretation Comme nts URIC ACID (test code = 2233) 7.5 MG/DL Delfino Schumacher AustinVITAMIN D, 25 [id number] 00:00:00* Test Item Value Reference Range Interpretation Comme nts VITAMIN D, 25 OH (test code = 4958) 36 NG/ML Delfino Schumacher AustinVITAMIN D, 25 [id number] 00:00:00* Test Item Value Reference Range Interpretation Comme nts VITAMIN D, 25 OH (test code = 4958) 36 NG/ML VITAMIN D, 25 [id number] 00:00:00* Test Item Value Reference Range Interpretation Comme nts VITAMIN D, 25 OH (test code = 4958) 36 NG/ML Delfino Schumacher AustinURIC [id number] 00:00:00* Test Item Value Reference Range Interpretation Comme nts URIC ACID (test code = 2233) 7.5 MG/DL VITAMIN D, 25 [id number] 00:00:00* Test Item Value Reference Range Interpretation Comme nts VITAMIN D, 25 OH (test code = 4958) 36 NG/ML URIC [id number] 00:00:00* Test Item Value Reference Range Interpretation Comme nts URIC ACID (test code = 2233) 7.5 MG/DL Delfino Schumacher AustinVITAMIN D, 25 [id number] 00:00:00* Test Item Value Reference Range Interpretation Comme nts VITAMIN D, 25 OH (test code = 4958) 36 NG/ML Delfino Schumacher AustinURIC [id number] 00:00:00* Test Item Value Reference Range Interpretation Comme nts URIC ACID (test code = 2233) 7.5 MG/DL URIC [id number] 00:00:00* Test Item Value Reference Range Interpretation Comme nts URIC ACID (test code = 2233) 7.5 MG/DL Delfino Schumacher AustinVITAMIN D, 25 [id number] 00:00:00* Test Item Value Reference Range Interpretation Comme nts VITAMIN D, 25 OH (test code = 4958) 36 NG/ML VITAMIN D, 25 [id number] 00:00:00* Test Item Value Reference Range Interpretation Comme nts VITAMIN D, 25 OH (test code = 4958) 36 NG/ML Delfino Schumacher AustinURIC [id number] 00:00:00* Test Item Value Reference Range Interpretation Comme nts URIC ACID (test code = 2233) 7.5 MG/DL VITAMIN D, 25 [id number] 00:00:00* Test Item Value Reference Range Interpretation Comme nts VITAMIN D, 25 OH (test code = 4958) 36 NG/ML URIC [id number] 00:00:00* Test Item Value Reference Range Interpretation Comme nts URIC ACID (test code = 2233) 7.5 MG/DL Delfino Schumacher AustinVITAMIN D, 25 [id number] 00:00:00* Test Item Value Reference Range Interpretation Comme nts VITAMIN D, 25 OH (test code = 4958) 36 NG/ML Delfino Schumacher AustinURIC [id number] 00:00:00* Test Item Value Reference Range Interpretation Comme nts URIC ACID (test code = 2233) 7.5 MG/DL Delfino Schumacher AustinVITAMIN D, 25 [id number] 00:00:00* Test Item Value Reference Range Interpretation Comme nts VITAMIN D, 25 OH (test code = 4958) 36 NG/ML Delfino Schumacher AustinURIC [id number] 00:00:00* Test Item Value Reference Range Interpretation Comme nts URIC ACID (test code = 2233) 7.5 MG/DL Delfino Schumacher AustinVITAMIN D, 25 [id number] 00:00:00* Test Item Value Reference Range Interpretation Comme nts VITAMIN D, 25 OH (test code = 4958) 36 NG/ML Delfino Schumacher AustinURIC [id number] 00:00:00* Test Item Value Reference Range Interpretation Comme nts URIC ACID (test code = 2233) 7.5 MG/DL Delfino Schumacher AustinVITAMIN D, 25 [id number] 00:00:00* Test Item Value Reference Range Interpretation Comme nts VITAMIN D, 25 OH (test code = 4958) 36 NG/ML Delfino Schumacher [place]URIC [id number] 00:00:00* Test Item Value Reference Range Interpretation Comme nts URIC ACID (test code = 2233) 7.5 MG/DL Delfino Schumacher AustinVITAMIN D, 25 [id number] 00:00:00* Test Item Value Reference Range Interpretation Comme nts VITAMIN D, 25 OH (test code = 4958) 36 NG/ML Delfino Schumacher AustinURIC [id number] 00:00:00* Test Item Value Reference Range Interpretation Comme nts URIC ACID (test code = 2233) 7.5 MG/DL Delfino Schumacher AustinVITAMIN D, 25 [id number] 00:00:00* Test Item Value Reference Range Interpretation Comme nts VITAMIN D, 25 OH (test code = 4958) 36 NG/ML Delfino Schumacher [place]URIC [id number] 00:00:00* Test Item Value Reference Range Interpretation Comme nts URIC ACID (test code = 2233) 7.5 MG/DL Delfino Schumacher AustinVITAMIN D, 25 [id number] 00:00:00* Test Item Value Reference Range Interpretation Comme nts VITAMIN D, 25 OH (test code = 4958) 36 NG/ML Delfino Schumacher [place]URIC [id number] 00:00:00* Test Item Value Reference Range Interpretation Comme nts URIC ACID (test code = 2233) 7.5 MG/DL Delfino Schumacher AustinVITAMIN D, 25 [id number] 00:00:00* Test Item Value Reference Range Interpretation Comme nts VITAMIN D, 25 OH (test code = 4958) 36 NG/ML Delfino Schumacher AustinURIC [id number] 00:00:00* Test Item Value Reference Range Interpretation Comme nts URIC ACID (test code = 2233) 7.5 MG/DL Delfino Schumacher AustinVITAMIN D, 25 [id number] 00:00:00* Test Item Value Reference Range Interpretation Comme nts VITAMIN D, 25 OH (test code = 4958) 36 NG/ML Delfino Schumacher AustinURIC [id number] 00:00:00* Test Item Value Reference Range Interpretation Comme nts URIC ACID (test code = 2233) 7.5 MG/DL Delfino Schumacher AustinVITAMIN D, 25 [id number] 00:00:00* Test Item Value Reference Range Interpretation Comme nts VITAMIN D, 25 OH (test code = 4958) 36 NG/ML Delfino Schumacher [place]URIC [id number] 00:00:00* Test Item Value Reference Range Interpretation Comme nts URIC ACID (test code = 2233) 7.5 MG/DL Delfino Schumacher AustinVITAMIN D, 25 [id number] 00:00:00* Test Item Value Reference Range Interpretation Comme nts VITAMIN D, 25 OH (test code = 4958) 36 NG/ML Delfino Schumacher [place]URIC [id number] 00:00:00* Test Item Value Reference Range Interpretation Comme nts URIC ACID (test code = 2233) 7.5 MG/DL Delfino Schumacher AustinVITAMIN D, 25 [id number] 00:00:00* Test Item Value Reference Range Interpretation Comme nts VITAMIN D, 25 OH (test code = 4958) 36 NG/ML Delfino Schumacher [place]UR[place] [id number] 00:00:00* Test Item Value Reference Range Interpretation Comme nts URIC ACID (test code = 2233) 7.5 MG/DL Delfino Schumacher AustinVITAMIN D, 25 [id number] 00:00:00* Test Item Value Reference Range Interpretation Comme nts VITAMIN D, 25 OH (test code = 4958) 36 NG/ML Delfino Schumacher [place]URIC [id number] 00:00:00* Test Item Value Reference Range Interpretation Comme nts URIC ACID (test code = 2233) 7.5 MG/DL Delfino Schumacher AustinVITAMIN D, 25 [id number] 00:00:00* Test Item Value Reference Range Interpretation Comme nts VITAMIN D, 25 OH (test code = 4958) 36 NG/ML Delfino Schumacher [place]URIC [id number] 00:00:00* Test Item Value Reference Range Interpretation Comme nts URIC ACID (test code = 2233) 7.5 MG/DL Delfino Schumacher AustinVITAMIN D, 25 [id number] 00:00:00* Test Item Value Reference Range Interpretation Comme nts VITAMIN D, 25 OH (test code = 4958) 36 NG/ML Delfino Schumacher [place]URIC [id number] 00:00:00* Test Item Value Reference Range Interpretation Comme nts URIC ACID (test code = 2233) 7.5 MG/DL Delfino Schumacher AustinVITAMIN D, 25 [id number] 00:00:00* Test Item Value Reference Range Interpretation Comme nts VITAMIN D, 25 OH (test code = 4958) 36 NG/ML Delfino Schumacher [place]URIC [id number] 00:00:00* Test Item Value Reference Range Interpretation Comme nts URIC ACID (test code = 2233) 7.5 MG/DL Delfino Schumacher AustinVITAMIN D, 25 [id number] 00:00:00* Test Item Value Reference Range Interpretation Comme nts VITAMIN D, 25 OH (test code = 4958) 36 NG/ML Delfino Schumacher [place] [id number] 00:00:00* Test Item Value Reference Range Interpretation Comme nts URIC ACID (test code = 2233) 7.5 MG/DL Delfino Schumacher Austin[place]IT[place] D, 25 [id number] 00:00:00* Test Item Value Reference Range Interpretation Comme nts VITAMIN D, 25 OH (test code = 4958) 36 NG/ML Delfino Schumacher [place] [id number] 00:00:00* Test Item Value Reference Range Interpretation Comme nts URIC ACID (test code = 2233) 7.5 MG/DL Delfino Schumacher [place] [id number] 00:00:00* Test Item Value Reference Range Interpretation Comme nts URIC ACID (test code = 2233) 7.5 MG/DL Delfino OrtaRHEUMATOID FACTOR, [id number] 00:00:00* Test Item Value Reference Range Interpretation Comme nts RHEUMATOID FACTOR, QUANT (te st code = 3502) <10 IU/ML Delfino Schumacher AustinSEDIMENTATION [id number] 00:00:00* Test Item Value Reference Range Interpretation Comme nts SEDIMENTATION RATE (test cod e = 1017) 117 MM/HOUR Delfino OrtaC-REACTIVE [id number] 00:00:00* Test Item Value Reference Range Interpretation Comme nts C-REACTIVE PROTEIN (test cod e = 3513) 0.3 MG/DL Delfino F AustinRHEUMATOID FACTOR, [id number] 00:00:00* Test Item Value Reference Range Interpretation Comme nts RHEUMATOID FACTOR, QUANT (te st code = 3502) <10 IU/ML Delfino F AustinSEDIMENTATION [id number] 00:00:00* Test Item Value Reference Range Interpretation Comme nts SEDIMENTATION RATE (test cod e = 1017) 117 MM/HOUR Delfino F AustinC-REACTIVE [id number] 00:00:00* Test Item Value Reference Range Interpretation Comme nts C-REACTIVE PROTEIN (test cod e = 3513) 0.3 MG/DL Delfino F AustinC-REACTIVE [id number] 00:00:00* Test Item Value Reference Range Interpretation Comme nts C-REACTIVE PROTEIN (test cod e = 3513) 0.3 MG/DL C-REACTIVE [id number] 00:00:00* Test Item Value Reference Range Interpretation Comme nts C-REACTIVE PROTEIN (test cod e = 3513) 0.3 MG/DL Delfino F AustinRHEUMATOID FACTOR, [id number] 00:00:00* Test Item Value Reference Range Interpretation Comme nts RHEUMATOID FACTOR, QUANT (te st code = 3502) <10 IU/ML RHEUMATOID FACTOR, [id number] 00:00:00* Test Item Value Reference Range Interpretation Comme nts RHEUMATOID FACTOR, QUANT (te st code = 3502) <10 IU/ML Delfino F AustinSEDIMENTATION [id number] 00:00:00* Test Item Value Reference Range Interpretation Comme nts SEDIMENTATION RATE (test cod e = 1017) 117 MM/HOUR C-REACTIVE [id number] 00:00:00* Test Item Value Reference Range Interpretation Comme nts C-REACTIVE PROTEIN (test cod e = 3513) 0.3 MG/DL SEDIMENTATION [id number] 00:00:00* Test Item Value Reference Range Interpretation Comme nts SEDIMENTATION RATE (test cod e = 1017) 117 MM/HOUR Delfino F AustinRHEUMATOID FACTOR, [id number] 00:00:00* Test Item Value Reference Range Interpretation Comme nts RHEUMATOID FACTOR, QUANT (te st code = 3502) <10 IU/ML Delfino F AustinC-REACTIVE [id number] 00:00:00* Test Item Value Reference Range Interpretation Comme nts C-REACTIVE PROTEIN (test cod e = 3513) 0.3 MG/DL Delfino F AustinRHEUMATOID FACTOR, [id number] 00:00:00* Test Item Value Reference Range Interpretation Comme nts RHEUMATOID FACTOR, QUANT (te st code = 3502) <10 IU/ML RHEUMATOID FACTOR, [id number] 00:00:00* Test Item Value Reference Range Interpretation Comme nts RHEUMATOID FACTOR, QUANT (te st code = 3502) <10 IU/ML Delfino F AustinSEDIMENTATION [id number] 00:00:00* Test Item Value Reference Range Interpretation Comme nts SEDIMENTATION RATE (test cod e = 1017) 117 MM/HOUR SEDIMENTATION [id number] 00:00:00* Test Item Value Reference Range Interpretation Comme nts SEDIMENTATION RATE (test cod e = 1017) 117 MM/HOUR Delfino F AustinC-REACTIVE [id number] 00:00:00* Test Item Value Reference Range Interpretation Comme nts C-REACTIVE PROTEIN (test cod e = 3513) 0.3 MG/DL C-REACTIVE [id number] 00:00:00* Test Item Value Reference Range Interpretation Comme nts C-REACTIVE PROTEIN (test cod e = 3513) 0.3 MG/DL Delfino F AustinRHEUMATOID FACTOR, [id number] 00:00:00* Test Item Value Reference Range Interpretation Comme nts RHEUMATOID FACTOR, QUANT (te st code = 3502) <10 IU/ML SEDIMENTATION [id number] 00:00:00* Test Item Value Reference Range Interpretation Comme nts SEDIMENTATION RATE (test cod e = 1017) 117 MM/HOUR SEDIMENTATION [id number] 00:00:00* Test Item Value Reference Range Interpretation Comme nts SEDIMENTATION RATE (test cod e = 1017) 117 MM/HOUR Delfino F AustinRHEUMATOID FACTOR, [id number] 00:00:00* Test Item Value Reference Range Interpretation Comme nts RHEUMATOID FACTOR, QUANT (te st code = 3502) <10 IU/ML Delfino F AustinC-REACTIVE [id number] 00:00:00* Test Item Value Reference Range Interpretation Comme nts C-REACTIVE PROTEIN (test cod e = 3513) 0.3 MG/DL SEDIMENTATION [id number] 00:00:00* Test Item Value Reference Range Interpretation Comme nts SEDIMENTATION RATE (test cod e = 1017) 117 MM/HOUR Delfino F AustinRHEUMATOID FACTOR, [id number] 00:00:00* Test Item Value Reference Range Interpretation Comme nts RHEUMATOID FACTOR, QUANT (te st code = 3502) <10 IU/ML C-REACTIVE [id number] 00:00:00* Test Item Value Reference Range Interpretation Comme nts C-REACTIVE PROTEIN (test cod e = 3513) 0.3 MG/DL Delfino F AustinSEDIMENTATION [id number] 00:00:00* Test Item Value Reference Range Interpretation Comme nts SEDIMENTATION RATE (test cod e = 1017) 117 MM/HOUR RHEUMATOID FACTOR, [id number] 00:00:00* Test Item Value Reference Range Interpretation Comme nts RHEUMATOID FACTOR, QUANT (te st code = 3502) <10 IU/ML Delfino F AustinSEDIMENTATION [id number] 00:00:00* Test Item Value Reference Range Interpretation Comme nts SEDIMENTATION RATE (test cod e = 1017) 117 MM/HOUR Delfino F AustinC-REACTIVE [id number] 00:00:00* Test Item Value Reference Range Interpretation Comme nts C-REACTIVE PROTEIN (test cod e = 3513) 0.3 MG/DL Delfino F AustinRHEUMATOID FACTOR, [id number] 00:00:00* Test Item Value Reference Range Interpretation Comme nts RHEUMATOID FACTOR, QUANT (te st code = 3502) <10 IU/ML Delfino F AustinSEDIMENTATION [id number] 00:00:00* Test Item Value Reference Range Interpretation Comme nts SEDIMENTATION RATE (test cod e = 1017) 117 MM/HOUR Delfino F AustinC-REACTIVE [id number] 00:00:00* Test Item Value Reference Range Interpretation Comme nts C-REACTIVE PROTEIN (test cod e = 3513) 0.3 MG/DL Delfino F AustinRHEUMATOID FACTOR, [id number] 00:00:00* Test Item Value Reference Range Interpretation Comme nts RHEUMATOID FACTOR, QUANT (te st code = 3502) <10 IU/ML Delfino F AustinSEDIMENTATION [id number] 00:00:00* Test Item Value Reference Range Interpretation Comme nts SEDIMENTATION RATE (test cod e = 1017) 117 MM/HOUR Deflino F AustinC-REACTIVE [id number] 00:00:00* Test Item Value Reference Range Interpretation Comme nts C-REACTIVE PROTEIN (test cod e = 3513) 0.3 MG/DL Delfino F AustinRHEUMATOID FACTOR, [id number] 00:00:00* Test Item Value Reference Range Interpretation Comme nts RHEUMATOID FACTOR, QUANT (te st code = 3502) <10 IU/ML Delfino F AustinSEDIMENTATION [id number] 00:00:00* Test Item Value Reference Range Interpretation Comme nts SEDIMENTATION RATE (test cod e = 1017) 117 MM/HOUR Delfino F AustinC-REACTIVE [id number] 00:00:00* Test Item Value Reference Range Interpretation Comme nts C-REACTIVE PROTEIN (test cod e = 3513) 0.3 MG/DL Delfino F AustinRHEUMATOID FACTOR, [id number] 00:00:00* Test Item Value Reference Range Interpretation Comme nts RHEUMATOID FACTOR, QUANT (te st code = 3502) <10 IU/ML Delfino F AustinSEDIMENTATION [id number] 00:00:00* Test Item Value Reference Range Interpretation Comme nts SEDIMENTATION RATE (test cod e = 1017) 117 MM/HOUR Delfino F AustinC-REACTIVE [id number] 00:00:00* Test Item Value Reference Range Interpretation Comme nts C-REACTIVE PROTEIN (test cod e = 3513) 0.3 MG/DL Delfino F AustinRHEUMATOID FACTOR, [id number] 00:00:00* Test Item Value Reference Range Interpretation Comme nts RHEUMATOID FACTOR, QUANT (te st code = 3502) <10 IU/ML Delfino F AustinSEDIMENTATION [id number] 00:00:00* Test Item Value Reference Range Interpretation Comme nts SEDIMENTATION RATE (test cod e = 1017) 117 MM/HOUR Delfino F AustinC-REACTIVE [id number] 00:00:00* Test Item Value Reference Range Interpretation Comme nts C-REACTIVE PROTEIN (test cod e = 3513) 0.3 MG/DL Delfino F AustinRHEUMATOID FACTOR, [id number] 00:00:00* Test Item Value Reference Range Interpretation Comme nts RHEUMATOID FACTOR, QUANT (te st code = 3502) <10 IU/ML Delfino F AustinSEDIMENTATION [id number] 00:00:00* Test Item Value Reference Range Interpretation Comme nts SEDIMENTATION RATE (test cod e = 1017) 117 MM/HOUR Delfino F AustinC-REACTIVE [id number] 00:00:00* Test Item Value Reference Range Interpretation Comme nts C-REACTIVE PROTEIN (test cod e = 3513) 0.3 MG/DL Delfino F AustinRHEUMATOID FACTOR, [id number] 00:00:00* Test Item Value Reference Range Interpretation Comme nts RHEUMATOID FACTOR, QUANT (te st code = 3502) <10 IU/ML Delfino F AustinSEDIMENTATION [id number] 00:00:00* Test Item Value Reference Range Interpretation Comme nts SEDIMENTATION RATE (test cod e = 1017) 117 MM/HOUR Delfino F AustinC-REACTIVE [id number] 00:00:00* Test Item Value Reference Range Interpretation Comme nts C-REACTIVE PROTEIN (test cod e = 3513) 0.3 MG/DL Delfino F AustinRHEUMATOID FACTOR, [id number] 00:00:00* Test Item Value Reference Range Interpretation Comme nts RHEUMATOID FACTOR, QUANT (te st code = 3502) <10 IU/ML Delfino F AustinSEDIMENTATION [id number] 00:00:00* Test Item Value Reference Range Interpretation Comme nts SEDIMENTATION RATE (test cod e = 1017) 117 MM/HOUR Delfino F AustinC-REACTIVE [id number] 00:00:00* Test Item Value Reference Range Interpretation Comme nts C-REACTIVE PROTEIN (test cod e = 3513) 0.3 MG/DL Delfino F AustinRHEUMATOID FACTOR, [id number] 00:00:00* Test Item Value Reference Range Interpretation Comme nts RHEUMATOID FACTOR, QUANT (te st code = 3502) <10 IU/ML Delfino F AustinSEDIMENTATION [id number] 00:00:00* Test Item Value Reference Range Interpretation Comme nts SEDIMENTATION RATE (test cod e = 1017) 117 MM/HOUR Delfino F AustinC-REACTIVE [id number] 00:00:00* Test Item Value Reference Range Interpretation Comme nts C-REACTIVE PROTEIN (test cod e = 3513) 0.3 MG/DL Delfino F AustinRHEUMATOID FACTOR, [id number] 00:00:00* Test Item Value Reference Range Interpretation Comme nts RHEUMATOID FACTOR, QUANT (te st code = 3502) <10 IU/ML Delfino F AustinSEDIMENTATION [id number] 00:00:00* Test Item Value Reference Range Interpretation Comme nts SEDIMENTATION RATE (test cod e = 1017) 117 MM/HOUR Delfino F AustinC-REACTIVE [id number] 00:00:00* Test Item Value Reference Range Interpretation Comme nts C-REACTIVE PROTEIN (test cod e = 3513) 0.3 MG/DL Delfino F AustinRHEUMATOID FACTOR, [id number] 00:00:00* Test Item Value Reference Range Interpretation Comme nts RHEUMATOID FACTOR, QUANT (te st code = 3502) <10 IU/ML Delfino F AustinSEDIMENTATION [id number] 00:00:00* Test Item Value Reference Range Interpretation Comme nts SEDIMENTATION RATE (test cod e = 1017) 117 MM/HOUR Delfino F AustinC-REACTIVE [id number] 00:00:00* Test Item Value Reference Range Interpretation Comme nts C-REACTIVE PROTEIN (test cod e = 3513) 0.3 MG/DL Delfino F AustinRHEUMATOID FACTOR, [id number] 00:00:00* Test Item Value Reference Range Interpretation Comme nts RHEUMATOID FACTOR, QUANT (te st code = 3502) <10 IU/ML Delfino F AustinSEDIMENTATION [id number] 00:00:00* Test Item Value Reference Range Interpretation Comme nts SEDIMENTATION RATE (test cod e = 1017) 117 MM/HOUR Delfino F AustinC-REACTIVE [id number] 00:00:00* Test Item Value Reference Range Interpretation Comme nts C-REACTIVE PROTEIN (test cod e = 3513) 0.3 MG/DL Delfino F AustinRHEUMATOID FACTOR, [id number] 00:00:00* Test Item Value Reference Range Interpretation Comme nts RHEUMATOID FACTOR, QUANT (te st code = 3502) <10 IU/ML Delfino F AustinSEDIMENTATION [id number] 00:00:00* Test Item Value Reference Range Interpretation Comme nts SEDIMENTATION RATE (test cod e = 1017) 117 MM/HOUR Delfino F AustinC-REACTIVE [id number] 00:00:00* Test Item Value Reference Range Interpretation Comme nts C-REACTIVE PROTEIN (test cod e = 3513) 0.3 MG/DL Delfino F AustinRHEUMATOID FACTOR, [id number] 00:00:00* Test Item Value Reference Range Interpretation Comme nts RHEUMATOID FACTOR, QUANT (te st code = 3502) <10 IU/ML Delfino F AustinSEDIMENTATION [id number] 00:00:00* Test Item Value Reference Range Interpretation Comme nts SEDIMENTATION RATE (test cod e = 1017) 117 MM/HOUR Delfino F AustinC-REACTIVE [id number] 00:00:00* Test Item Value Reference Range Interpretation Comme nts C-REACTIVE PROTEIN (test cod e = 3513) 0.3 MG/DL Delfino F AustinRHEUMATOID FACTOR, [id number] 00:00:00* Test Item Value Reference Range Interpretation Comme nts RHEUMATOID FACTOR, QUANT (te st code = 3502) <10 IU/ML Delfino F AustinSEDIMENTATION [id number] 00:00:00* Test Item Value Reference Range Interpretation Comme nts SEDIMENTATION RATE (test cod e = 1017) 117 MM/HOUR Delfino F AustinC-REACTIVE [id number] 00:00:00* Test Item Value Reference Range Interpretation Comme nts C-REACTIVE PROTEIN (test cod e = 3513) 0.3 MG/DL Delfino F AustinRHEUMATOID FACTOR, [id number] 00:00:00* Test Item Value Reference Range Interpretation Comme nts RHEUMATOID FACTOR, QUANT (te st code = 3502) <10 IU/ML Delfino F AustinSEDIMENTATION [id number] 00:00:00* Test Item Value Reference Range Interpretation Comme nts SEDIMENTATION RATE (test cod e = 1017) 117 MM/HOUR Delfino OrtaC-REACTIVE [id number] 00:00:00* Test Item Value Reference Range Interpretation Comme nts C-REACTIVE PROTEIN (test cod e = 3513) 0.3 MG/DL Delfino OrtaRHEUMATOID FACTOR, [id number] 00:00:00* Test Item Value Reference Range Interpretation Comme carlito RHEUMATOID FACTOR, QUANT (te st code = 3502) <10 IU/ML Delfino OrtaSEDIMENTATION [id number] 00:00:00* Test Item Value Reference Range Interpretation Comme nts SEDIMENTATION RATE (test cod e = 1017) 117 MM/HOUR Delfino OrtaC-REACTIVE [id number] 00:00:00* Test Item Value Reference Range Interpretation Comme nts C-REACTIVE PROTEIN (test cod e = 3513) 0.3 MG/DL Delfino Orta Consult Notes Date/Time Note Provider Source 2024-06-04 09:10:00 Associated Order(s): CONSULT ADULT PHYSICAL THERAPY RN cleared PT for session. Patient agreeable to working with physical therapy. Patient semireclining in bed and Heels offloaded? No: not required as patient is alert and oriented, as well as exhibits sufficient LE strength and ability to move/reposition LEs/heels throughout the day, No visitors present and Bed alarm engaged. Recommend nursing staff utilize RW to safely assist patient with mobility out of the bed or chair. Pt seen in conjunction with occupation therapy (Bhaveshae) due to pt's anticipated limited activity tolerance. Refer to OT for ADL details. PT billing for PT portion only. PHYSICAL THERAPY EVALUATION Consult received, chart reviewed and evaluation complete this date. Patient is referred to PT for evaluation and treatment. Patient is a 59 year old female who presents to hospital for Shortness of breath [R06.02]. Discharge Recommendations: Therapy Needs and Potential: Patient would benefit from continued physical therapy services to address: decline in bed mobility decline in transfers decline in gait and/or balance decreased strength decreased endurance Patient demonstrates good potential to improve and meet therapy goals with further physical therapy services. Patient appears motivated to improve their functional mobility and return to their previous level of function. Patient demonstrates ability to tolerate atleast 30-60 minutes of physical therapy with active participation. Challenges to Home Transition: increased risk of falls decreased caregiver availability Equipment recommendations: wheelchair for longer distances Current Functional Status and/or Treatment: AM-PAC 6 Clicks (Raw Score 0=Dependent, 24=Independent; Low function Raw Score 0= Dependent, 32=Independent): Raw Score - Basic Mobility : 22 T-Scale Score - Basic Mobility : 47.4 Bed Mobility: Rolling: Independent Supine-sit: Independent Sitting balance Good Scooting to edge of bed: Independent Dizziness No Transfers: Sit to stand: Supervision using RW Stand to sit: Supervision using RW Static/dynamic standing balance: Good Patient performed standing marches x 5 ea prior to ambulation. No LOB or unsteadiness noted. Dizziness No Ambulation: Assisted patient with ambulation as follows: 10 x 2 feet to restroom using RW and Supervision. Patient presenting with steady, step-through gait pattern. Further ambulation deferred due to patient refusal secondary to fatigue. Dizziness No Therapeutic exercise: patient educated in Adaptive equipment , Energy conservation, Fall prevention, General strengthening, Gross motor coordination of LEs, Positioning, Relaxation/breathing techniques, and Safety awareness. and instructed patient in the following: ankle pumps, quad sets, glut sets, heel slides, hip abduction/adduction, straight leg raises Educated patient with importance and benefits of progressive OOB activities as tolerated to: Increase overall mobility, strength and endurance and progress towards PLOF Decrease chances of pneumonia, deconditioning, BLE DVT's, skin breakdown and pressure sores. Patient verbalizing understanding to all discussed Functional Outcome Measures: (Values within the past 12 hours) Tinetti Gait Score- # / 12 Initiation of gait: No hesitancy Step length: On both sides, swing foot passes stance foot Foot clearance: Both feet completely clear floor Step Symmetry: Step lengths equal Step continuity: Steps appear continuous Path: Mild/moderate deviation or uses AD Trunk: Marked sway or uses AD Walking: Heels almost touching Tinetti Gait Score: 9 Tinetti Gait Score Interpretation: >= 7 - Low risk for falls After session, patient sitting upright in bedside chair and Heels offloaded? Yes Using pillows, No visitors present. Call button provided. RN made aware of pt's current status, functional mobility, and to continue to monitor. PLAN OF CARE: While in the hospital, PT will follow patient at least 2 times per week,once or twice a day, per patient's tolerance and needs. See below for complete details. Admit Date: 06/03/2024 Hospital Diagnosis:Shortness of breath [R06.02] PT Diagnosis: Difficulty walking, Weakness, Malaise/fatigue, and Abnormality of gait and balance Weight Bearing Precaution: NA General Precautions: PPE used:Gloves, General, Fall, Lines/Tubes,Purewick catheter, oxygen: Nasal canula on 3L Bracing/Cast present or required:N/A PMH: Past Medical History: Diagnosis Date Coronary atherosclerosis of unspecified type of vessel, [place] or graft 02/11/2013 heart attack Genital warts 08/25/2014 Human immunodeficiency virus (HIV) disease Hypertension Murmur, cardiac 06/10/2021 PSH: Past Surgical History: Procedure Laterality Date BACK SURGERY HYSTERECTOMY PTCA/STENT PRIOR LIVING SITUATION: lives alone in a ground level apartment. She reports that she will have a caregiver (friend) who will stay with her upon discharge from the hospital, however will be alone during the day when her friend goes to work. DME: Quad Cane, Four wheeled walker with seat, Supplemental O2 on 4L Prior level of Mobility: community ambulation, house hold ambulation, ambulates with four wheeled walker with seat Suspected ischemic or hemorraghic stroke:No Subjective: Patient agreed to session Patient/Family Goals: to go home Patient/Family verbalizes understanding of condition: Yes PAIN: -Pain Location: lower back -Pain rating before treatment: does not rate, After treatment: does not rate -Pain Management: Use of assistive device aides in pain reduction during mobility and Repositioning Provided COMMUNICATION Primary Language: Montenegrin Able to Verbalize needs: Yes Vision:needs big print handouts Hearing:good; no issues reported ORIENTATION/COGNITION: Oriented to: person, place, date/time, and situation Awake: Yes Alert: Yes Dizzy: No Follows Commands: Yes 1-Step Yes Multi-Step Yes Inconsistent: No NEUROLOGICAL Light Touch: within functional limits bilateral LE BALANCE: Sitting: Static: Good Dynamic: Good Standing: Static: Good Dynamic: Good RANGE OF MOTION: within functional limits bilateral LE STRENGTH: 4/5 (Good), bilateral LE ENDURANCE: Fair+, Nasal canula SKIN INTEGRITY: refer to RN Notes PROBLEM LIST: Decline in bed mobility, Decline in gait, Decline in transfers, Decreased strength, Decreased endurance, Decreased balance, and Safety awareness deficits ASSESSMENT: Patient is a 59 year old female seen secondary to the above listed diagnosis. Patient would benefit from continued PT to address the above listed deficits to maximize independence and safety with functional mobility. Rehabilitation Potential: good Goals: The following goals are to maximize independence and safety with functional mobility to eventually return to prior living situation and prior functional status. Upon discharge, patient and/or family will demonstrate the followin. Sit to stand: Independent using RW Stand to sit: Independent using RW 2. Independent with ambulation, Feet: 300 using least assistive device. Treatment Plan: Gait training, Therapeutic exercise, Transfer training, Balance training, Bed mobility training, Equipment needs assessment, Safety education, patient/caregiver education, Wheelchair mobility training, and Functional Motor Training PATIENT EDUCATION: Patient provided with preferred teaching of verbal information on role of PT, plan of care. Shows readiness to learn. Verbal instruction teaching provided. Individual is able to read and verbalizes understanding of teaching provided. Total Time Tx Codes in Minutes: 10 min Total Treatment Time in Minutes: 28 min Katharine Reed PT, DPT Physical Therapist Pt will be followed by physical therapy, however, this therapist may not be primary therapist[place] [phone] for questions or concerns. [facility] 2024-06-04 09:10:00 Associated Order(s): CONSULT ADULT OCCUPATIONAL THERAPY OT GENERAL EVALUATION Consult received via [employer], EMR reviewed and evaluation completed 06/04/24. Patient referred to occupational therapy for evaluation and treatment secondary to Shortness of breath. Patient agreeable to participate in occupational therapy. Patient found semireclining in bed and Heels offloaded? Yes Using pillows. Pt seen in conjunction with Remington Reed DPT secondary to anticipated limited activity tolerance. Only billing for OT services. Discharge Recommendations: Therapy Needs and Potential:- Patient would benefit from continued skilled occupational therapy services to address: Decline in basic activities of daily living, Decline in instrumental activities of daily living, Decreased strength, and Decreased endurance - Patient demonstrates good potential to improve and meet therapy goals with further skilled occupational therapy services. - Patient appears motivated to improve their BADLS and IADLs and return to their previous level of function. - Patient exhibits limited activity tolerance. - Patient able to follow commands: 1-step Yes, Multi-step Yes, Inconsistencies Yes Challenges to Home Transition:- Requires physical assistance for BADLS - Requires physical assistance for IADLS - Requires supervision or verbal cues for BADLS - Requires supervision or verbal cues for IADLS - Limited caregiver availability - Increased risk of falls - Environmental barriers -combo tub/shower Equipment Recommendations: See below I certify that Charito Quiñonez is under my care and that I had a usla-in-bevr encounter with this patient on: 06/04/24 . The primary reason for the durable medical equipment: Decreased endurance to ambulate to bathroom in adequate amount of time; pt safety. I am recomending that, based on my findings, the following is medically necessary durable medical equipment: 3 in 1 bedside commode. Height: Ht Readings from Last 1 Encounters: 06/03/24 5' 3" (1.6 m) Weight: Wt Readings from Last 1 Encounters: 06/03/24 125 lb 14.1 oz (57.1 kg) Duration of need: 99 months. Patient does not have access to regular toilet facilities because he/she is confined to: A single room. PLAN OF CARE: At least 2x/week Precautions: Weight bearing status: NA General: PPE Utilized: Gloves, Fall, O2 per NC , and purewick Bracing: N/A Subjective: Pt resting comfortably in bed and agreeable to get out of bed. Current Occupational Performance and/or Treatment: AM-PAC 6 Clicks (Raw Score 0=Dependent, 24=Independent; Low function Raw Score 0= Dependent, 32=Independent): Raw Score - Daily Activity: 20 T-Scale Score - Daily Activity: 42.03 Feeding: Independent, pt drank from cup in bedside chair Grooming: Supervision, pt washed her face in bedside chair Bathing: NT, educated pt on use of shower chair to prevent falls in the shower. Pt reports she has one in place. UB Dressing: Independent, pt donned gown when handed to her. LB Dressing: NT, pt demonstrated functional ROM to complete dressing task. Toilet Transfer: Supervision, pt descended/ascended with multiple cues to use grab bar vs rolling walker for safety. Functional Mobility: Defer to PT consult. Patient/caregiver educated on:Adaptive equipment , ADL training, Deep breathing, Positioning (pt educated on benefits of sitting upright in bedside chair to promote proper lung function and healing), Role of OT, and Safety awareness Patient left reclining in bedside chair with call bhandari in reach. Please, see full evaluation below for more detail. OT EVALUATION: 59 year old female Admit date: 06/03/2024 Date of onset: 06/03/2024 Admit Diagnosis: Shortness of breath [R06.02] OT Diagnosis: Impaired BADL independence, Impaired IADL independence, Weakness, Decreased endurance, and Impaired self-care mobility PMH: Past Medical History: Diagnosis Date Coronary atherosclerosis of unspecified type of vessel, [place] or graft 02/11/2013 heart attack Genital warts 08/25/2014 Human immunodeficiency virus (HIV) disease Hypertension Murmur, cardiac 06/10/2021 PSH: Past Surgical History: Procedure Laterality Date BACK SURGERY HYSTERECTOMY PTCA/STENT PAIN: Pain Location: lower back Pain rating before treatment: does not rate, After treatment: does not rate Pain Management: Decreased movement aides in some pain reduction, Repositioning Provided, and heat pack provided. OCCUPATIONAL ROLES/HOME ENVIRONMENT: Home environment: Lives alone, 03/09 supervision/assistance is not available, and Downstairs apartment. However, pt reports older sister frequently checks in on her. She also reports that she has a friend that can help in the evenings. Bathroom access: Yes Bathroom setup: Combo Occupation(s): Retired Function prior to admission: Household ambulation, Independent with BADLs, and Independent with IADLs (except driving) Suspected ischemic or hemorraghic stroke patient: No Equipment prior to admission: 4 wheeled walker, Home O2 , Quad Cane, Shower chair PERFORMANCE SKILLS/FACTORS: UE Muscle Tone: bilateral WNL UE ROM: bilateral AROM WFL UE Strength: ABUNDIO UE 4-/5 Hand dominance: right Dexterity/Coordination: bilateral Intact Endurance - Sitting: Good Standing: Good Sitting Balance - Static: Good Dynamic: Good Standing: Balance - Static Good Dynamic: Good Dizziness: No Skin Integrity: defer full skin assessment to nursing Sensation: Patient denies numbness and tingling. 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 TREATMENT/INTERVENTION PLAN: Patient/Caregiver Education, Equipment recommendations, Daily living activities, and Therapeutic exercises GOAL(S): By discharge, patient will increase independence in daily living skills as follows: 1 Patient will perform toilet transfer with independence. 2 Patient will perform simulated tub/shower transfer with independence. 3 Patient will perform LB dressing with independence. 4 Patient will complete 1 grooming tasks with independence while standing at the sink. 5 Patient will complete toileting hygiene, including clothing management, with independence. 6 Patient will increase endurance for functional activity as evidenced by ability to sustain 20 minutes of active participation. 7 Patient/caregiver will verbalize/demonstrate understanding/proficiency in the following home programs: Energy conservation, 8 Fall prevention, and 9 General strengthening PATIENT-FAMILY TEACHING Patient provided with preferred teaching of verbal information and demonstration on Adaptive equipment , ADL training, Deep breathing, Positioning (pt educated on benefits of sitting upright in bedside chair to promote proper lung function and healing), Role of OT, and Safety awareness. Shows readiness to learn. Verbal instruction and Demonstration teaching provided. Individual verbalizes understanding of teaching provided and needs reinforcement of teaching. Tico OTR, MOT Total Timed Treatment Codes: 5 Min Total Treatment Time: 30 Min Patient Complexity Level Moderate - An occupational therapy evaluation of moderate complexity was completed using the above tests and measures. The following information was obtained: An occupational profile and medical and therapy history, including an expanded review of medical and/or therapy records and additional review of physical, cognitive, or psychosocial history related to current functional performance, Various standardized and non-standardized assessments were used to identify at least 3-5 performance deficits related to physical, cognitive, or psychosocial skills that result in activity limitations and/or participation restrictions, and Clinical decision making of moderate analytic complexity, which includes an analysis of the occupational profile, analysis of data from detailed assessment(s), and consideration of several treatment options. Patient may present with comorbidities that affect occupational performance. Minimal to moderate modification of tasks or assistance (e.g., physical or verbal) with assessment(s) is necessary to enable patient to complete evaluation component. Romie Aleman OT [employer] 2023-05-19 10:11:14 Associated Order(s): CONSULT CARDIOLOGY [facility] Cardiology Consult PCP: tJ Orta [facility] Date of Service: 05/19/2023 CHIEF COMPLAINT/reason for consult: Troponin elevation HISTORY OF PRESENT ILLNESS This is a 58 years old female with past medical history of HIV, hypertension, hyperlipidemia, possible CAD etc. She came to [facility] due to cough and dyspnea. She was found to have COPD exacerbation. Labs showed troponin elevation and TAIWO. Denies chest pain. No acute EKG changes. Echocardiogram showed hyperdynamic left ventricle with ejection fraction over 65%. Moderate aortic stenosis noted. PAST MEDICAL HISTORY Past Medical History: Diagnosis Date Coronary atherosclerosis of unspecified type of vessel, [place] or graft 02/11/2013 heart attack Genital warts [...] or Shortness of Breath. 8.5 g 0 edsjclzil-gfsxipxv-jmoaboe ala 50-200-25 mg tablet Take 1 tablet [...] injury) Aortic stenosis Coronary artery disease involving [place] coronary artery of [place] heart without angina pectoris COPD exacerbation-continue antibiotics, [...] statins. Continue metoprolol. Follow-up with his primary rn transition. Possible CAD-she denies coronary intervention. Recommend to [...] further assistance. James Stacy MD, FACC, AUSTYN Remotely Piloted Vehicle Controller Division of Cardiovascular Medicine [facility] - Health History and Physical Notes Date/Time Note Provider Source 2024-06-03 17:12:08 AURELIA GARCIA Admit H&P PCP: Jt Schumacher [facility] Date of Service: 06/03/2024 CHIEF COMPLAINT: chest pain HISTORY OF PRESENT ILLNESS Charito Quiñonez is a 59 year old female with a PMH of AIDS (VL 297k 2021, CD4 104 2023), HFpEF (60-65%), genital warts, hypertension, hyperlipidemia, CAD, pulmonary fibrosis, cerebral palsy, CKD, COPD on 2L who presents as OSH transfer for chest pain. Pt is currently Aox2, oriented to self and place. She states that earlier today she had one time episode of chest pain in the left side of her chest, described as a pressure-like sensation which did not radiate. This lasted for approximately one minute and did not occur again. She felt short of breath at the time as well which had improved shortly after. Pt has COPD and is on 2L oxygen at home, denies any recent cough, fevers, chills, illnesses or other sick contacts. Denies any sputum production, n/v, hematemesis or hematochezia. Urinating well and producing bowel movements. She was hospitalized two weeks ago for NSTEMI (trop elevation to 0.187) and treated for COPD exacerbation. She was to follow up with cardiology after one week but missed this appointment. Per care everywhere, pt had a stress NM stress test done on 07/2023 was within normal limits, although results are not found. Cardiac MRI was also suggested in the past for possible infiltrative disorder. She also states that several of her family members from heart attacks at an early age. Pt was diagnosed with HIV in 2011 which has been uncontrolled. She is on biktarvy and bactrim for PJP prophylaxis, and has had issues with compliance in the past. She states she is taking these now but is also unsure, as most of her medications are managed by sister. At [facility]: Vitals: BP 149/92, HR 80s, RR 17-20, temp 97.5, 97% on 2L Labs: wbc 3.5, hgb 12.9, plt 219, Na 141, K 3.2, Cr 1.49, NT-proBNP 1521, HS troponin 184.8, lactic 1, CXR without acute intrathoracic abnormalities, stable findings. EKG: sinus rhythm with premature atrial complexes with aberrant conduction, ST & T wave changes in lateral leads. Interventions: 500 cc NS bolus, Rocephin 1 g, IV lasix 20 mg, 125 mg methylprednisolone, ipratropium inhalation, levoalbuterol, famotidine 20 mg, aspirin 162 mg. Upon arrival, BP 136/84, HR 99, satting 93% on 2L, 97.9F. Denies any active chest pain or shortness of breath at this time. EKG without acute ST elevation, trop 0.12. PSurgical Hx: Past Surgical History: Procedure Laterality Date BACK SURGERY HYSTERECTOMY PTCA/STENT Family Hx: Family History Problem Relation Age of Onset Hypertension Mother Coronary Heart Disease Mother Cancer Father Coronary Heart Disease Sister Pt states her mother, father, and siblings all passed from heart attacks. Social Hx: Social History Tobacco Use Smoking status: Never Smokeless tobacco: Never Substance Use Topics Alcohol use: No Drug use: No Review of Systems: 12 point ROS negative except per HPI PHYSICAL EXAMINATION Vitals: 06/03/24 1626 BP: 136/84 Pulse: 99 Resp: 18 Temp: 36.6 ?C (97.9 ?F) SpO2: 93% Weight: 57.1 kg (125 lb 14.1 oz) General: In no acute distress, on 2L O2 Lungs: Lungs clear to auscultation bilaterally, no wheezing, crackles, or rhonchi Cardio: Regular rate and rhythm, holosystolic murmur on L upper and lower sternal border Abdomen: soft, NT/ND Extremities: No edema, strong peripheral pulses, negative JVD LABS: Recent Labs 06/03/24 1806 TROPNI 0.120* IMAGING: TTE 2023 === Study performed on encounter date 05/16/23 === Transthoracic echo (TTE) - Interpretation Summary - Table formatting from the original result was not included. Left Ventricle: Left ventricle size is normal. Moderately increased wall thickness. There is severe concentric hypertrophy. Normal wall motion. Hyperdynamic systolic function with a visually estimated EF of greater than 65%. LVOT obstruction at rest with peak gradient of at least 26 mmHg. Aortic Valve: Mild transvalvular regurgitation. Consistent with moderate aortic stenosis. AV mean gradient is 23.1 mmHg. AV peak velocity is 3.0 m/s. AV area by continuity VTI is 1.3 cm2. LVOT 2.0 cm. Tricuspid Valve: Insufficient tricuspid regurgitation jet to estimate RVSP . IVC/SVC: IVC diameter is less than or equal to 21 mm and decreases greater than 50% during inspiration; therefore the estimated right atrial pressure is normal (~0-5 mmHg). Vitals Height Weight BSA (Calculated - sq m) BP Pulse 5' 3" (1.6 m) 158 lb (71.7 kg) 1.78 sq meters 112/63 80 CHART REVIEW: pertinent information as below: ASSESSMENT/PLAN Charito Quiñonez is a 59 year old female with PMH as listed above, admitted to the hospital with: Stable angina Shortness of Breath History of NSTEMI CAD Moderate aortic stenosis HFpEF (65%, severe concentric hypertrophy, LVOT obstruction 05/2023) COPD on 2L Pulmonary emphysema Pt transferred from OSH for one time episode of chest pain, SOB which has since resolved. EKG without acute ST abnormalities, troponin 0.186>0.120. Hospitalized 2 weeks ago with similar presentation, (trop peak .187 at the time) and treated for COPD exacerbation. Unclear if pt has had any cardiac procedures in the past. NM stress test in 2023 per care everywhere unremarkable, although results not found. Per previous cardiology notes, cardiac MRI was suggested to assess for possible infiltrative disorder, although pt was lost to outpatient follow up. No active coronary syndrome now, palpitations or SOB at this time. She will benefit from outpatient cath as soon as possible. Pt is - admit to [facility] - trend troponin to peak x2 - repeat EKG if chest pain - consider cardiology consult if angina return - can consider inpatient cath - f/u TTE, NT-proBNP - CBC, CMP, Mag, Phos - CXR, UA, lactic - nitroglycerin SL as needed - O2 pp, tylenol for pain - cardiology referral on discharge for LHC, cMRI - cardiac diet - telemetry Uncontrolled HIV (CD4 104, VL [id number], 2023, on Biktarvy) Aox2 without any acute trauma, LOC or concern for infectious process, will reach out to sister for collateral information. VSS, afebrile at this time. She has uncontrolled HIV with poor compliance on Biktarvy per chart review. Has not had any recent sexual - repeat CD4, HIV NAAT - syphilis IgG/IGM - fungitell - monitor fever curve - c/w Biktarvy - c/w bactrim 800 MWF for PJP prophylaxis - re-establish care with HIV clinic Chronic: Cerebral Palsy Chronic lumbar pain, sciatica HTN | HLD Anxiety CKD (baseline 1.2) Monitor Cr function, no TAIWO at this time. - home meds - hold gabapentin 300 for now - hold alprazolam for now - hold home antihypertensives, amlodipine 10, losartan potassium 100 daily for now - c/w metoprolol tartrate 25 mg - c/w atorvastatin 40mg daily - c/w fluticasone propionate 50mcg daily - c/w aspirin 81mg daily - avoid NSAIDs Gwen Alexander MD Department of Internal Medicine, PGY-1 06/03/2024 19:28 Cosigned by Kenji Lord MD at 06/04/2024 2:04 PM CDT Associated attestation - Kenji Lord MD - 06/04/2024 2:04 PM CDT I personally examined the patient on 06/04/[address] Alexander's resident note as written. The patient is admitted with chest pain. Her troponin is slightly elevated. She has been admitted in the past with similar symptoms. Her care is fragmented between different entities. She says she recently saw a rn transition in [place] and had a procedure that she describes as sounding similar to a hear cath. She is able to communicate few details about her cardiology visits. Team will try to contact family and obtain records. If she has already have a left heart cath, she may not need any further cardiac workup. If not, will ask cardiology to evaluate her for possible workup. I actively participated in the decision-making process. Please see the resident's note for additional details. INTERNAL MEDICINE [facility] 2023-05-16 23:13:44 Medicine History & Physical Date [...] or Shortness of Breath. 8.5 g 0 dajlcebbw-bfcoyjop-wuekoyg ala 50-200-25 mg tablet Take 1 tablet [...] Coronary atherosclerosis of unspecified type of vessel, [place] or graft 02/11/2013 heart attack Genital warts [...] 5 mL, 5 mL, Intravenous, PRN, EzraAnyi, RECREATION FACILITY ATTENDANT [START ON 05/17/2023] sulfamethoxazole-trimethoprim (BACTRIM DS) 800-160 mg per tablet 1 tablet, 1 tablet, Oral, QMON/SAT/SAT AT 2000, Lefty Abreu MD Objective: Vitals: Vitals: 05/16/23 1612 05/16/23 1624 05/16/23191405/16/232029 BP: 117/69 Pulse: 98 99 Resp: 16 16 18 25 Temp: 37.2 ?C (99 ?F) TempSrc: SpO2: 97% 96% 94% 94% Weight: Height: I/O's: Intake/Output Summary (Last 24 hours) at 05/16/20232312 Last data filed at 05/16/20231914 Gross per [...] Disposition: Admit to inpatient IM-INTERNAL MEDICINE STAFF [facility] Notes Date/Time Note Provider Source 2024-06-19 10:25:15 Requested Prescriptions Pending Prescriptions Disp Refills FUROSEMIDE 20 mg tablet [Pharmacy Med Name: FUROSEMIDE 20 MG TABLET] 90 tablet 1 Sig: TAKE 1 TABLET BY MOUTH EVERY DAY IN THE MORNING Last Office Visit: Hospital Admission Last refill on-06/05/2024 #30 no refills Next office visit scheduled on none Refill Routed to provider per Ambulatory guidelines. Please review refill request. Bertha Guerrier MA [facility] Delfino Piper [facility]2025-04-25 07:54:52 Problem: Discharge Planning Goal: Adequate for discharge Outcome: Progressing as expected Goal: Effective communication Outcome: Progressing as expected Problem: Pain Goal: Control of pain at or below patient's documented comfort goal Outcome: Progressing as expected Goal: Reduction in pain sensation Outcome: Progressing as expected Problem: Infection Risk Goal: Absence of infection Outcome: Progressing as expected Problem: Falls, Risk of Goal: Absence of falls Outcome: Progressing as expected Problem: Cardiac Output - Decreased Goal: Cardiac output within specified parameters Outcome: Progressing as expected Goal: Absence of signs and symptoms of decreased cardiac output Outcome: Progressing as expected Problem: Respiratory Function - Impaired Goal: Able to cough effectively Outcome: Progressing as expected Goal: Adequate oxygenation Outcome: Progressing as expected Goal: Adequate work of breathing Outcome: Progressing as expected Goal: Patent airway Outcome: Progressing as expected Linda Vela RNBluffton HospitalFdcpoq6946-08-10 22:43:01 06/04/24 2240 Broncho Score Smoking History 0 Surgical History 2 CXR 0 Breath Sounds 2 Cough 2 Respiratory Condition 0 O2 1 Broncho Score 7 Broncho Interpretation 7 -- Triage 4 - Bronchodilator TID & PRN Respiratory Care Services Bronchodilator Treatment Plan Assessment DAILY ASSESSMENT Date: 06/04/24 I assessed, Charito Quiñonez using the bronchodilator assessment tool and scored this patient at 7 with a triage number of 4, which has a bronchodilator treatment plan of TID & PRN. The next protocol scoring assessment will be in 24 hours. Please contact the respiratory sales team leader at [phone] if you have any questions or concerns. BRONCHO SCORE SHEET RJIT Tadeo Reno [facility] [id number] 22:39:37 [facility]/ [facility]ob. [facility] 12:25:26 Problem: Discharge Planning Goal: Adequate for discharge Outcome: Progressing as expected Goal: Effective communication Outcome: Progressing as expected Problem: Pain Goal: Control of pain at or below patient's documented comfort goal Outcome: Progressing as expected Goal: Reduction in pain sensation Outcome: Progressing as expected Problem: Infection Risk Goal: Absence of infection Outcome: Progressing as expected Problem: Falls, Risk of Goal: Absence of falls Outcome: Progressing as expected Problem: Cardiac Output - Decreased Goal: Cardiac output within specified parameters Outcome: Progressing as expected Goal: Absence of signs and symptoms of decreased cardiac output Outcome: Progressing as expected Brea Shaver RNUTMB - [id number] 18:57:00 Summary: Bronchodilator Protocol Respiratory Care Services Bronchodilator Treatment Plan Assessment INITIAL OR TITRATION Date: 06/03/24 I assessed, Charito Quiñonez using the bronchodilator assessment tool and scored this patient at 6 with a triage number of 4, which has a bronchodilator treatment plan of TID & PRN. The next protocol scoring assessment will be in 24 hours. Please contact the respiratory sales team leader at [phone] if you have any questions or concerns. BRONCHO SCORE SHEET Problem list: Patient Active Problem List Diagnosis HIV (human immunodeficiency virus infection) Genital warts H/O: hysterectomy Obesity (BMI 30-39.9) Medically noncompliant Thrush Bacteremia Murmur, cardiac LGSIL Pap smear of vagina Acute cough COPD exacerbation Troponin I above reference range Primary hypertension Other hyperlipidemia TAIWO (acute kidney injury) Aortic stenosis Coronary artery disease involving [place] coronary artery of [place] heart without angina pectoris Shortness of breath RESPIRATORY HISTORY Smoking History: reports that she has never smoked. She has never been exposed to tobacco smoke. She has never used smokeless tobacco. Breath Sounds: Clear,Diminished bilaterally Respiratory Rate: 16-20 Oxygen Requirements: Room air Respiratory Condition: Stable Cough: Strong Chest Imaging: XR Chest 1 vw Result Date: 06/03/2024 Exam: Chest (1 View), 06/03/2024 5:45 PM. Ordering Physician: KENJI LORD. History: sob . Technique: One view of the chest. Comparison: Chest radiograph 06/08/2021. Findings: No focal consolidation. No pneumothorax or effusion. Normal size of the cardiac silhouette. Atherosclerosis of the aorta. No acute osseous finding. Impression: No acute cardiopulmonary finding. RL: [id number] End of Report Surgical History: Past Surgical History: Procedure Laterality Date BACK SURGERY HYSTERECTOMY PTCA/STENT 06/03/24 1857 Broncho Score Smoking History 1 Surgical History 2 CXR 0 Breath Sounds 2 Cough 1 Respiratory Condition 0 O2 0 Broncho Score 6 Broncho Interpretation 6 -- Triage 4 - Bronchodilator TID & PRN Barbara Doty RTBluffton HospitalXcbitv6783-81-87 18:17:28 Problem: Discharge Planning Goal: Adequate for discharge Outcome: Progressing as expected Goal: Effective communication Outcome: Progressing as expected Problem: Pain Goal: Control of pain at or below patient's documented comfort goal Outcome: Progressing as expected Goal: Reduction in pain sensation Outcome: Progressing as expected Problem: Infection Risk Goal: Absence of infection Outcome: Progressing as expected Problem: Falls, Risk of Goal: Absence of falls Outcome: Progressing as expected [id number]00 [facility]2025-04-02 00:00:00 [facility]2025-03-27 00:00:00 [facility]2025-03-25 00:00:00 [facility]2025-02-27 00:00:00 [facility]2025-02-26 00:00:00 [facility]2025-01-27 00:00:00 [facility]2025-01-15 00:00:00 [facility]2024-12-27 00:00:00 [facility]2024-12-02 00:00:00 [facility]2024-11-20 00:00:00 [facility]2024-10-17 00:00:00 [facility]2024-10-08 00:00:00 [facility]2024-09-21 00:00:00 [facility]2024-08-28 00:00:00 [facility]2024-08-12 00:00:00 [facility]2024-07-30 00:00:00 [facility]2024-07-17 00:00:00 Delfino Orta [facility]2024-07-11 00:00:00 Delfino Piper [facility]2024-06-28 00:00:00 Delfino Orta [facility]2024-06-12 00:00:00 Delfino Piper [facility]2024-05-28 00:00:00 Delfino Piper [facility]2024-04-23 00:00:00 Delfino Piper [facility]2024-04-10 08:57:37 TRANSITIONAL CARE MANAGEMENT ASSESSMENT 05/22/2023 Charito Quiñonez [id number] Charito Quiñonez is a 58 year old Black or female was admitted on 05/16/23 to [facility], [facility] MED SURG. She was discharged on [...] mg twice daily No linked episodes TCM Wql-jerk-bz-face outreach documentation: CM made follow up call to patient post-discharge. Phone rings with no answer and no voicemail. Two attempts made to reach patient. Discharge Assessment Chart Assessed: 05/22/23 TCM Outreach Completed: 05/22/23 Future Appointments: IN [facility]es [facility]jm5853[facility]-98 14:20:10 CM made follow up call to patient post-discharge. No answer and no voicemail. [facility]2024-04-08 15:49:35 Problem: Pain Goal: Control of pain [...] Adequate for discharge Outcome: Adequate for discharge IN [facility] Pedro Pablo Rios [facility] HospitalSgkolo4915-47-43 13:54:10 Problem: Pain Goal: Control of pain [...] Adequate for discharge Outcome: Progressing as expected [facility] Valeria Tyler [facility] HospitalJtwiyc3847-29-62 23:51:17 Problem: Pain Goal: Control of pain [...] Adequate for discharge Outcome: Progressing as expected [facility] Marisela Bañuelos [facility] HospitalFryfmx5609-71-56 12:43:53 Problem: Pain Goal: Control of pain [...] Adequate for discharge Outcome: Progressing as expected [place] [id number] 13:44:06 Problem: Pain Goal: Control of pain [...] Adequate for discharge Outcome: Progressing as expected [place] [id number] 06:26:57 Problem: Pain Goal: Control of pain [...] Adequate for discharge Outcome: Progressing as expected [place] [id number] 01:04:[address] Rosario about pt having generalized wheezing and would benefit from IV steroids, waiting for response. Will continue to monitor. Argentina Chambers [id number] 17:16:46 Problem: Pain Goal: Control of pain at or below patient's documented comfort goal 05/17/2023 1716 by Molly Pond, RN Outcome: Progressing as expected 05/17/2023 1715 by Molly Pond, RN Outcome: Progressing as expected Goal: Reduction in pain sensation 05/17/2023 1716 by Molly Pond, RN Outcome: Progressing as expected 05/17/2023 171 by Molly Pond, RN Outcome: Progressing as expected Problem: Respiratory Function - Impaired Goal: Able to cough effectively 05/17/2023 1716 by Molly Pond, RN Outcome: Progressing as expected 05/17/2023 1715 by Molly Pond RN Outcome: Progressing as expected Goal: Adequate oxygenation 05/17/2023 1716 by Molly Pond, RN Outcome: Progressing as expected 05/17/2023 1715 by Molly Pond, RN Outcome: Progressing as expected Goal: Adequate work of breathing 05/17/2023 1716 by Molly Pond, RN Outcome: Progressing as expected 05/17/2023 1715 by Molly Pond, RN Outcome: Progressing as expected Problem: Discharge Planning Goal: Adequate for discharge 05/17/2023 1716 by Molly Pond, RN Outcome: Progressing as expected 05/17/2023 1715 by Molly Pond RN Outcome: Progressing as expected [id number]20[facility] Problem: Pain Goal: Control of pain [...] discharge Outcome: Progressing as expected Hanny Moran [id number] 16:51:01 Problem: Pain Goal: Control of pain [...] Adequate for discharge Outcome: Progressing as expected [id number] 15:24:48 Report given to HALLE Barnesapartment house manager Audrey Hitchcock [id number] 12:06:08 Patient states that she feels short of breath. Fortino Morales [facility] [id number] 12:04:19 Patients states "I have a cold, I have a cough and it hurts in my back up to my head. And I am chaffed between my legs. I need some antibiotics." Patients respirations are labored with accessory muscle usage, oxygen saturation 82% on room air. [id number] 12[facility]34:58 PT D/C home. GCS15, VS stable, no ataxia noted. Given two prescriptions and D/C paperwork. S/S relieved at this time. Pt ambulatory at time of discharge. Pt educated on leg pain, med usage, follow up care, s/s worsening condition. Pt verbalized understanding. NICAL DESIGNER Susan Valdez [place] [id number] 10:40:01 Patient here for pain in the left leg, states after she walks she gets tired fast; rash on her back and needs a refill on her albuterol inhaler. NICAL DESIGNER Fortino Morales [place] [id number] 14:30:17 Pt given printed and verbal discharge [...] gait, in no apparent distress, Dayna Babcock [id number] 11:41:55 Pt arrived via transit bus with c/o back pain s/p fall 1 week ago. States she has not medicated forthe pain. Pt is also requesting refills of her nasal spray and inhaler. Rosalia Burton [facility]
[2024-06-21 23:37] LABS: Albumin 3.6 g/dL (3.4-5.0); Albumin/Globulin Ratio 0.7 (1.1-1.8); Anion Gap 10.4 mEq/L (5.0-15.0); Bilirubin Direct 0.2 mg/dL (0-0.2); Bilirubin Indirect, Calculated 0.3 mg/dL (0.2-0.8); Bilirubin Total 0.5 mg/dL (0.2-1.0); Globulin 4.9 g/dL (2.3-3.5); Magnesium 1.7 mg/dL (1.6-2.4); Potassium 3.4 mEq/L (3.5-5.1); Protein, Total 8.5 g/dL (6.4-8.2)
[2024-06-22 00:01] LABS: Troponin High Sensitivity 222.8 pg/mL (<58.9)
[2024-06-22 00:06] LABS: Arterial Blood Carboxyhemoglob 1.6 % (0-1.5); Blood Gas Oxyhemoglobin 84.2 % (94-97); Blood Gas THB 13.3 g/dl (12-18); Blood O2 Saturation 87.3 % (92-98.5)
--- NOTE | 2024-06-22 01:02 | ER ---
Nurse's Notes [facility] Name: Charito Michael Age: 59 yrs Sex: Female : 1965 Arrival Date: 06/21/2024 Time: 22:40 Bed 6 Private MD: Diagnosis: Acute systolic (congestive) heart failure;Elevated troponin, acute COPD exacerbation, pulmonary congestion with CHF exacerbation, acute on chronic renal insufficiency Presentation: 06/21 22:49 Chief complaint: EMS states: SOB beginning this morning. 4LNC at home. O2 saturation lg3 80% on EMS arrival. 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 Coronavirus screen: Client denies travel out of the [place] in the last 14 days. Ebola Screen: No symptoms or risks identified at this time. Initial Sepsis Screen: Does the patient meet any 2 criteria? No. Patient's initial sepsis screen is negative. Does the patient have a suspected source of infection? No. Patient's initial sepsis screen is negative. Risk Assessment: Do you want to hurt yourself or someone else? Patient reports no desire to harm self or others. Onset of symptoms was June 21, 2024. 22:49 Method Of Arrival: EMS: [facility] lg3 22:49 Acuity: GIULIANO 2 lg3 22:53 Care prior to arrival: Medication(s) given: Albuterol Neb x 1. lg3 Triage Assessment: 22:53 General: Appears in no apparent distress. comfortable, Behavior is calm, cooperative. lg3 Pain: Denies pain. EENT: No deficits noted. No signs and/or symptoms were reported regarding the EENT system. Neuro: No deficits noted. Timmons Agitation-Sedation Scale (RASS): 0 - Alert and Calm Level of Consciousness is awake, alert, obeys commands, Oriented to person, place, time, situation. Cardiovascular: No deficits noted. Denies chest pain, Heart tones S1 S2 present Capillary refill < 3 seconds Clubbing of nail beds is absent JVD is absent Patient's skin is warm and dry. Respiratory: Reports shortness of breath Airway is patent Respiratory effort is even, unlabored, Respiratory pattern is regular, symmetrical, Onset: The symptoms/episode began/occurred this morning, the patient has mild shortness of breath. GI: No deficits noted. No signs and/or symptoms were reported involving the gastrointestinal system. : No signs and/or symptoms were reported regarding the genitourinary system. Derm: No deficits noted. No signs and/or symptoms reported regarding the dermatologic system. Skin is intact, is healthy with good turgor, Skin is dry, Skin is normal, Skin temperature is warm. Musculoskeletal: No deficits noted. No signs and/or symptoms reported regarding the musculoskeletal system. Circulation, motion, and sensation intact. Range of motion: intact in all extremities. Historical: - Allergies: 22:53 NKA; lg3 - PMHx: 22:53 Back pain; CHF; Chronic pain; COPD; HIV; Hypercholesterolemia; Hypertension; seasonal lg3 allergies; - PSHx: 22:53 Total abdominal hysterectomy; lg3 - Immunization history:: Adult Immunizations up to date. - Infectious Disease History:: Denies. - Social history:: Smoking status: Patient denies any tobacco usage or history of. Patient/guardian denies using alcohol, street drugs. - Family history:: not pertinent. Screenin:56 [facility] ED Fall Risk Assessment (Adult) History of falling in the last 3 months, lg3 including since admission No falls in past 3 months (0 pts) Confusion or Disorientation No (0 pts) Intoxicated or Sedated No (0 pts) Impaired Gait No (0 pts) Mobility Assist Device Used No (0 pt) Altered Elimination No (0 pt) Score/Fall Risk Level 0 - 2 = Low Risk Oriented to surroundings, Maintained a safe environment, Educated pt \T\ family on fall prevention, incl call for assistance when getting out of bed, Assessed \T\ reinforced patient's understanding of fall precautions. Abuse screen: Denies threats or abuse. Denies injuries from another. Nutritional screening: No deficits noted. Tuberculosis screening: No symptoms or risk factors identified. Assessment: 22:56 General: see triage assessment. Cardiovascular: No deficits noted. Denies chest pain, lg3 Heart tones S1 S2 present Rhythm is regular. Respiratory: Reports shortness of breath Airway is patent Respiratory effort is even, unlabored, Respiratory pattern is regular, symmetrical, Breath sounds are clear bilaterally. 05/12 00:26 Reassessment: Patient appears in no apparent distress at this time. No changes from lg3 previously documented assessment. Patient and/or family updated on plan of care and expected duration. Pain level reassessed. Patient is alert, oriented x 3, equal unlabored respirations, skin warm/dry/pink. Patient states feeling better. Vital Signs: 06/21 22:49 BP 151 / 84; Pulse 69; Resp 19 S; Temp 98.3(O); Pulse Ox 98% on 3 lpm NC; Weight 54.43 lg3 kg (R); Height 5 ft. 1 in. (R); Pain 0/10; 23:29 BP 165 / 75; Pulse 70; Resp 19 S; Pulse Ox 94% on 5 lpm NC; lg3 06/22 00:26 BP 121 / 70; Pulse 66; Resp 18 S; Pulse Ox 93% on 5 lpm NC; lg3 01:48 BP 133 / 88; Pulse 69; Resp 20 S; Pulse Ox 94% on 5 lpm NC; lg3 06/21 22:49 Body Mass Index 22.67 (54.43 kg, 154.94 cm) lg3 06/21 22:49 Pain Scale: Adult lg3 Sabetha Coma Score: 01:22 Eye Response: spontaneous(4). Motor Response: obeys commands(6). Verbal Response: sp4 oriented(5). Total: 15. ED Course: 06/21 22:42 Patient arrived in ED. kmf 22:42 Reyes Molina MD is Attending Physician. sp4 22:49 Lianna Hahn RN is Primary Nurse. lg3 22:53 Triage completed. lg3 22:53 Arm band placed on right wrist. lg3 22:56 Patient has correct armband on for positive identification. Placed in gown. Bed in low lg3 position. Call light in reach. Side rails up X 1. Client placed on continuous cardiac and pulse oximetry monitoring. NIBP monitoring applied. youth nutritional monitor on. Door closed. Noise minimized. Warm blanket given. Pillow given. 22:56 Maintain EMS IV. Dressing intact. Good blood return noted. Site clean \T\ dry. Gauge \T\ lg 3 site: 20 LAC. Flushed with 10 mL NS. Oxygen administration via nasal cannula \T\ 3L/min Response to oxygen therapy: symptoms improved. 22:58 Troponin HS Sent. lg3 22:58 Ptt, Activated Sent. lg3 22:59 XRAY CXR (1 view) In Process Unspecified. EDMS 22:59 ABG Sent. lg3 22:59 BMP Sent. lg3 22:59 Blood Culture Adult (2) Sent. lg3 22:59 CBC with Diff Sent. lg3 22:59 CPK Sent. lg3 22:59 Hepatic Function Sent. lg3 22:59 Lipase Sent. lg3 22:59 Magnesium Sent. lg3 22:59 NT PRO-BNP Sent. lg3 22:59 PT-INR Sent. lg3 23:46 EKG done, by ED staff, reviewed by Reyes Molina MD. oe 06/22 01:00 Blair Nixon MD is Hospitalizing Provider. sp4 02:47 No provider procedures requiring assistance completed. Patient admitted, IV remains in lg3 place. Administered Medications: 06/21 23:13 Drug: MethylPrednisoLONE IVP 125 mg IVP once Route: IVP; Site: left antecubital; lg3 23:48 Follow up: Response: No adverse reaction lg3 23:13 Drug: Levalbuterol Inhalation 1.25 mg Inhalation once Route: Inhalation; lg3 23:48 Follow up: Response: No adverse reaction lg3 06/22 01:47 Drug: Aspirin PO Chewable Tablet 324 mg PO once; 81 mg tablets x 4 Route: PO; lg3 02:48 Follow up: Response: No adverse reaction lg3 01:47 Drug: Gabapentin PO 300 mg PO once Route: PO; lg3 02:48 Follow up: Response: No adverse reaction lg3 01:48 Drug: Furosemide IVP 20 mg IVP once; give over 2 minutes Route: IVP; Site: left lg3 antecubital; 02:48 Follow up: Response: No adverse reaction lg3 01:48 Drug: Enoxaparin Sub-Q 50 mg Sub-Q once Route: Sub-Q; Site: abdomen; lg3 02:48 Follow up: Response: No adverse reaction lg3 Medication: 02:47 VIS not applicable for this client. lg3 Outcome: 01:01 Decision to Hospitalize by Provider. sp4 02:47 Admitted to Med/surg accompanied by tech, lg3 02:47 Condition: stable 02:47 Instructed on the need for admit, 03:27 Patient left the ED. lg3 Signatures: Dispatcher [employer] EDMS Jhonny Hansen Lacie, RN RN lg3 Reyes Molina MD MD sp4 Selene Castañeda kmf
--- NOTE | 2024-06-22 01:02 | EDPHYS ---
Physician Documentation [facility] Name: Charito Michael Age: 59 yrs Sex: Female : 1965 Arrival Date: 06/21/2024 Time: 22:40 Bed 6 Private MD: ED Physician Reyes Molina HPI: 06/21 22:42 This 59 yrs old Black Female presents to ER via Unassigned with complaints of dyspnea . sp4 06/22 01:[address] is 59-year-old female with history of back pain, CHF, chronic pain, COPD oxygen sp4 dependent, HIV, PCP pneumonia, hypercholesterolemia, hypertension, CAD, seasonal allergies, coronary stent, presents with dyspnea acutely and hypoxemia based on EMS report. Last admission 04/20/2024 for NSTEMI and pulmonary edema. Patient's medications include nystatin 5 mg p.o. 4 times a day, zolpidem 10 mg bedtime, alprazolam 1 mg 3 times daily, albuterol nebulized as needed, amitriptyline 100 mg bedtime, atorvastatin 40 mg bedtime, gabapentin 100 mg 3 times daily, ipratropium 0.5 mg daily as needed, amlodipine 10 mg daily, chewable aspirin 1 mg daily, baclofen 5 mg twice daily, Biktarvy 50, 200, 25 mg tablet daily, doxepin 10 mg bedtime, duloxetine 60 mg daily, Trelegy inhaler daily, hydrocodone 7.5 as needed, melatonin 10 mg as needed, metoprolol 25 mg p.o. twice daily, Ambien 5 mg bedtime, . Historical: - Allergies: 06/21 22:53 NKA; lg3 - PMHx: 22:53 Back pain; CHF; Chronic pain; COPD; HIV; Hypercholesterolemia; Hypertension; seasonal lg3 allergies; - PSHx: 22:53 Total abdominal hysterectomy; lg3 - Immunization history:: Adult Immunizations up to date. - Infectious Disease History:: Denies. - Social history:: Smoking status: Patient denies any tobacco usage or history of. Patient/guardian denies using alcohol, street drugs. - Family history:: not pertinent. ROS: 06/22 01:22 Constitutional: Negative for fever, chills, and weight loss, positive acute none sp4 exertional dyspnea. All other systems are negative, Exam: 01:22 Constitutional: Patient is frail physically debilitated female with signs of cachexia. sp4 Acutely dyspneic, oxygen dependent Head/Face: Normocephalic, atraumatic. Eyes: Pupils equal round and reactive to light, extra-ocular motions intact. Lids and lashes normal. Conjunctiva and sclera are not injected. Cornea within normal limits. Periorbital areas with no swelling, redness, or edema. ENT: Nares patent. No nasal discharge, no septal abnormalities noted. Tympanic membranes are normal and external auditory canals are clear. Oropharynx with no redness, swelling, or masses, exudates, or evidence of obstruction, uvula midline. Mucous membranes moist. Neck: Trachea midline, no thyromegaly or masses palpated, and no cervical lymphadenopathy. Supple, full range of motion without nuchal rigidity, or vertebral point tenderness. Chest/axilla: Normal chest wall appearance and motion. Nontender with no deformity. No lesions are appreciated. Cardiovascular: Regular rate and rhythm with a normal S1 and S2. No gallops, murmurs, or rubs. Normal PMI, no JVD. No pulse deficits. Respiratory: Lungs have equal breath sounds bilaterally, clear to auscultation and percussion. No rales, rhonchi or wheezes noted. No increased work of breathing, no retractions or nasal flaring. Abdomen/GI: Soft, with normal bowel sounds. No distension or tympany. No guarding or rebound. No evidence of tenderness throughout. Back: No spinal tenderness. No costovertebral tenderness. Skin: Warm, dry with normal turgor. Normal color with no rashes, no lesions, and no evidence of cellulitis. MS/ Extremity: Pulses equal, no cyanosis. Neurovascular intact. Full, normal range of motion. Neuro: Awake and alert, GCS 15, oriented to person, place, time, and situation. Cranial nerves II-XII grossly intact. Motor strength 5/5 in all extremities. Sensory grossly intact. Psych: Awake, alert, with orientation to person, place and time. Behavior, mood, and affect are within normal limits 01:26 ECG was reviewed by the Attending Physician. EKG 2340 sinus rhythm rate 68. LVH. sp4 Muscle tremor artifact Vital Signs: 06/21 22:49 BP 151 / 84; Pulse 69; Resp 19 S; Temp 98.3(O); Pulse Ox 98% on 3 lpm NC; Weight 54.43 lg3 kg (R); Height 5 ft. 1 in. (R); Pain 0/10; 23:29 BP 165 / 75; Pulse 70; Resp 19 S; Pulse Ox 94% on 5 lpm NC; 3 06/22 00:26 BP 121 / 70; Pulse 66; Resp 18 S; Pulse Ox 93% on 5 lpm NC; lg3 01:48 BP 133 / 88; Pulse 69; Resp 20 S; Pulse Ox 94% on 5 lpm NC; 3 06/21 22:49 Body Mass Index 22.67 (54.43 kg, 154.94 cm) 3 06/21 22:49 Pain Scale: Adult lg3 Elbe Coma Score: 01:22 Eye Response: spontaneous(4). Motor Response: obeys commands(6). Verbal Response: sp4 oriented(5). Total: 15. MDM: 06/21 22:45 Medical Screening Exam initiated 4 06/22 00:58 ED course: TIME OF STUDY: 06/21/2024 10:45 PM CDT REASON FOR EXAM: CHEST PAIN sp4 COMPARISON: None. FINDINGS: AP view of the chest was obtained, chest 1 view. Lungs: The lungs are adequately inflated. Diffuse interstitial markings are noted with some scattered lucencies. Tubular lucencies are also noted, consistent with bronchiectasis. Patchy opacities are noted in the lung bases. Pleura: No pneumothorax. There is no pleural effusion. Heart and Mediastinum: Normal cardiomediastinal silhouette and great vessels.. Bones: No acute bony abnormality.. IMPRESSION: 1. Patchy opacities in the lung bases. 2. Findings consistent with chronic lung disease.. 01:27 Differential diagnosis: asthma, Bronchitis CHF exacerbation, Chronic Obstructive sp4 Pulmonary Disease Myocardial Infarction pneumonia. Data reviewed: vital signs, nurses notes, [facility] records, lab test result(s), EKG, radiologic studies, plain films. Consideration of Admission/Observation Escalation of care including admission/observation considered. ED course: Patient stable for admission for CHF exacerbation, acute on chronic renal insufficiency, . 01:31 ED course: BIPAP was applied . No signs of sepsis . 4 06/21 22:45 Order name: BMP; Complete Time: 00:47 sp4 06/21 22:45 Order name: Blood Culture Adult (2) [facility] 06/21 22:45 Order name: CBC with Diff; Complete Time: 00:47 [facility] 06/21 22:45 Order name: CPK; Complete Time: 00:48 [facility] 06/21 22:45 Order name: Hepatic Function; Complete Time: 00:47 [facility] 06/21 22:45 Order name: Lipase; Complete Time: 00:48 [facility] 06/21 22:45 Order name: Magnesium; Complete Time: 00:48 [facility] 06/21 22:45 Order name: NT PRO-BNP; Complete Time: 00:48 [facility] 06/21 22:45 Order name: PT-INR; Complete Time: 00:48 [facility] 06/21 22:45 Order name: Ptt, Activated; Complete Time: 00:48 [facility] 06/21 22:45 Order name: Troponin HS; Complete Time: 00:48 [facility] 06/21 22:45 Order name: ABG; Complete Time: 00:48 [facility] 06/21 22:48 Order name: Lactate w/ 2H reflex if indic.; Complete Time: 00:48 lg3 06/22 02:28 Order name: CBC with Automated Diff EDMS 06/22 02:28 Order name: CBC with Automated Diff EDMS 06/22 02:28 Order name: CBC with Automated Diff EDMS 06/22 02:28 Order name: Comprehensive Metabolic Panel EDMS 06/22 02:28 Order name: Comprehensive Metabolic Panel EDMS 06/22 02:28 Order name: Comprehensive Metabolic Panel EDMS 06/22 02:28 Order name: Comprehensive Metabolic Panel EDMS 06/22 02:28 Order name: NT PRO-BNP EDMS 06/22 02:28 Order name: NT PRO-BNP EDMS 06/22 02:28 Order name: NT PRO-BNP EDMS 06/22 02:28 Order name: NT PRO-BNP EDMS 06/22 02:28 Order name: Troponin High Sensitivity EDMS 06/22 02:28 Order name: Troponin High Sensitivity EDMS 06/22 02:28 Order name: Troponin High Sensitivity EDMS 06/22 02:28 Order name: Troponin High Sensitivity EDMS 06/22 02:29 Order name: Troponin High Sensitivity EDMS 06/21 22:45 Order name: XRAY CXR (1 view) [facility] 06/21 22:45 Order name: Call RT; Complete Time: 22:58 sp4 06/21 22:45 Order name: Cardiac monitoring; Complete Time: 23:13 sp4 06/21 22:45 Order name: EKG - Nurse/Tech; Complete Time: 23:29 sp4 06/21 22:45 Order name: IV Saline Lock; Complete Time: 22:59 sp4 06/21 22:45 Order name: Labs collected and sent; Complete Time: 22:59 sp4 06/21 22:45 Order name: O2 Per Protocol; Complete Time: 22:59 sp4 06/21 22:45 Order name: O2 Sat Monitoring; Complete Time: 22:59 sp4 EC/11 23:40 Rate is 68 beats/min. Rhythm is regular, Normal Sinus Rhythm. QRS Madelia is Normal. FL sp4 interval is normal. QRS interval is normal. QT interval is normal. No Q waves. T waves are Normal. No ST changes noted. Clinical impression: No evidence of ischemia. Interpreted by me. Reviewed by me. Administered Medications: 23:13 Drug: MethylPrednisoLONE IVP 125 mg IVP once Route: IVP; Site: left antecubital; lg3 23:48 Follow up: Response: No adverse reaction lg3 23:13 Drug: Levalbuterol Inhalation 1.25 mg Inhalation once Route: Inhalation; lg3 23:48 Follow up: Response: No adverse reaction lg3 06/22 01:47 Drug: Aspirin PO Chewable Tablet 324 mg PO once; 81 mg tablets x 4 Route: PO; lg3 02:48 Follow up: Response: No adverse reaction lg3 01:47 Drug: Gabapentin PO 300 mg PO once Route: PO; lg3 02:48 Follow up: Response: No adverse reaction lg3 01:48 Drug: Furosemide IVP 20 mg IVP once; give over 2 minutes Route: IVP; Site: left lg3 antecubital; 02:48 Follow up: Response: No adverse reaction lg3 01:48 Drug: Enoxaparin Sub-Q 50 mg Sub-Q once Route: Sub-Q; Site: abdomen; lg3 02:48 Follow up: Response: No adverse reaction lg3 Disposition: 01:31 Critical Care:. sp4 Disposition Summary: 06/22/24 01:01 Hospitalization Ordered Notes: Hospitalization Status: Inpatient Admission sp4 Provider: Blair Nixon sp[place]sley Condition: Stable sp4 Problem: new sp4 Symptoms: have improved sp4 Bed/Room Type: Standard sp4 Location: Intensive Care Unit(06/22/24 02:27) cg Room Assignment: 2-(06/22/24 02:27) cg Diagnosis - Acute systolic (congestive) heart failure sp4 - Elevated troponin, acute COPD exacerbation, pulmonary congestion with CHF sp4 exacerbation, acute on chronic renal insufficiency Forms: - Medication Reconciliation Form sp4 - SBAR form sp4 - Leadership Thank You Letter sp4 Critical care time excluding procedures: : Critical care time: Bedside Care: 36 minutes, Consultation: 12 minutes, Family sp4 Intervention: 12 minutes. Total time: 60 minutes Signatures: Dispatcher [employer] Tiffany Tipton RN RN cg Able, Lacie, RN RN 3 Reyes Molina MD MD sp4 Corrections: (The following items were deleted from the chart) 06/21 22:46 22:45 BASIC METABOLIC PANEL+C.LAB.BRZ ordered. EDMS EDMS 22:46 22:45 BLOOD CULTURE*+BA.LAB.BRZ ordered. EDMS EDMS 22:46 22:45 CBC+H.LAB.BRZ ordered. EDMS EDMS 22:46 22:46 CREATINE PHOSPHOKINASE+C.LAB.BRZ ordered. EDMS EDMS 22:46 22:46 HEPATIC FUNCTION+C.LAB.BRZ ordered. EDMS EDMS 22:46 22:46 LIPASE+C.LAB.BRZ ordered. EDMS EDMS 22:46 22:46 MAGNESIUM+C.LAB.BRZ ordered. EDMS EDMS 22:46 22:46 PROBNP+C.LAB.BRZ ordered. EDMS EDMS 22:46 22:46 PROTIME (+INR)+COAG.LAB.BRZ ordered. EDMS EDMS 22:46 22:46 PTT, ACTIVATED+COAG.LAB.BRZ ordered. EDMS EDMS 22:46 22:46 Troponin High Sensitivity+C.LAB.BRZ ordered. EDMS EDMS 22:46 22:46 Chest Single View+RAD.RAD.BRZ ordered. EDMS EDMS 22:46 22:46 Arterial Blood Gas+RC.LAB.BRZ ordered. EDMS EDMS 22:46 22:46 BiPap ([employer] Only)+RC.RAD.BRZ ordered. EDMS EDMS : 22:46 D-DIMER+COAG.LAB.BRZ ordered. EDMS EDMS 06/22 02:27 01:01 Telemetry/MedSurg (Inpatient) sp4 cg 02:27 01:01 sp4 cg
[2024-06-22] MEDS ORDERED: GABAPENTIN 300 MG CAP ONE (01:40)
[2024-06-22] MEDS ORDERED: FUROSEMIDE 20 MG/ 2ML VIAL ONE (01:41)
[2024-06-22] MEDS ORDERED: ASPIRIN 81 MG CHEWABLE TABLET ONE (01:41)
[2024-06-22] MEDS ORDERED: ENOXAPARIN 60 MG/0.6 ML SQ ONE (01:41)
[2024-06-22] MEDS ORDERED: ONDANSETRON 4 MG/2 ML VIAL IV PRN (02:16)
[2024-06-22] MEDS ORDERED: ACETAMINOPHEN 500 MG TAB PO PRN (02:16)
--- NOTE | 2024-06-22 02:31 | P.HP ---
Certification for Inpatient Patient admitted to: Inpatient With expected LOS: >2 Midnights Patient will require the following post-hospital care: None Practitioner: I am a practitioner with admitting privileges, knowledge of patient current condition, hospital course, and medical plan of care. Services: Services provided to patient in accordance with Admission requirements found in Title 42 Section 412.3 of the Code of Federal Regulations Patient History Date of Service: 06/22/24 Reason for admission: Combine acute on chronic CHF, COPD exacerbation. History of Present Illness: Patient is a 59 years old female with past medical history chronic pain, COPD, HIV, hypercholesteremia, essential hypertension, seasonal allergies, diastolic CHF, home oxygen dependent 4 L, and echo done on 02/20/24 with an EF of 60-65%, who presents to the ER today complaining of increased shortness of breath, and lower extremities edema. Patient states when she woke up this morning, she started having some shortness of breath with no associated chest pain, states for the past couple of days she has also had bilateral lower extremities pitting edema associated with her CHF. Upon arrival to ER, patient was in mild respiratory distress and needed nebulizer treatment, and optimization of her oxygen. Patient also had mild pitting edema bilateral lower extremities in ER, received 20 mg of IV Lasix in ER. Patient initial ABG in ER pH 7.36, PO2 59.8, bicarb 19.6, O2 sat 87.3. Patient BUN 28, creatinine 2.04, with a GFR of 27, BNP 2577. Patient troponin 232.8 which is almost equivocal to her previous troponin on previous admissions. Patient denies having associated chest pain at this time. On prior admission one of patient diagnosis was NSTEMI. Patient chart was reviewed, noted that she is followed by [facility] nephrology group. Dr. Stiles was notified by the ER doctor, he states he will see the patient today. Also consulted railroad detective, and cloth hand. Allergies No Known Drug Allergies Allergy (Verified 03/20/24 23:01) Unknown Home Medications: Nystatin 5 ml PO QID PRN 01/11/18 Zolpidem Tartrate 10 mg PO BEDTIME PRN 01/11/18 ALPRAZolam [Xanax*] 1 mg PO TID #90 tab 02/22/24 Albuterol Neb [Proventil 0.083% Neb Soln] 1.25 mg NEB DAILY 30 Days #30 amp 03/21/24 Amitriptyline HCl 100 mg PO BEDTIME 30 Days #30 tab 03/21/24 Atorvastatin Calcium [Lipitor] 40 mg PO BEDTIME 30 Days #30 tab 03/21/24 Gabapentin 100 mg PO TID #90 03/21/24 Ipratropium Neb [Atrovent*] 0.5 mg NEB DAILY 30 Days #30 amp 03/21/24 Nebulizer Accessories [Adult Aerosol Mask] 1 each MC DAILY 30 Days #1 ea 03/21/24 Nebulizer and Compressor [[employer] Choice Nebulizer] 1 each MC DAILY 30 Days #1 ea 03/21/24 Amlodipine [Norvasc*] 10 mg PO DAILY #30 tab 04/17/24 Aspirin Chewable [Aspirin Chewable*] 1 tab PO DAILY 04/17/24 Baclofen 5 mg PO BID 04/17/24 Bictegrav/Emtricit/Tenofov Ala [Biktarvy 50-200-25 mg Tablet] 1 tab PO DAILY 04/17/24 Doxepin HCl [Sinequan*] 10 mg PO BEDTIME 04/17/24 Duloxetine HCl 60 mg PO 04/17/24 Fluticasone/Umeclidin/Vilanter [Trelegy Ellipta 200-62.5-25] 1 puff PO DAILY 0 04/17/24 Hydrocodone 7.5/APAP 325 [[place] 7.5/325 mg*] 1 tab PO Q12H PRN #30 tab 04/17/24 Melatonin 10 mg PO BEDTIME PRN PRN #30 cap 04/17/24 Metoprolol Tartrate [Lopressor*] 25 mg PO BID #60 tab 04/17/24 Zolpidem Tartrate [Ambien] 5 mg PO BEDTIME PRN PRN #20 tab 04/17/24 Cefuroxime [Ceftin] 500 mg PO BID 5 Days #10 tab 04/22/24 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 moist/pink, Other (Very poor dentition.), Sclerae nonicteric Neck: Supple, No Thyromegaly, No LAD, JVD distended (Bilateral) Respiratory: Diminished, Expiratory wheezes, Other (Scattered bilateral coarse crackles.) Cardiovascular: Normal pulses, Regular rate/rhythm, No gallops, No rubs, No murmurs, Edema Gastrointestinal: Normal bowel sounds, No ascites, No tenderness, No masses, No rebound, No guarding Musculoskeletal: No clubbing, No erythema, No tenderness Integumentary: No breakdown Neurological: Normal speech, Normal tone, Other (Forgetful at times.) Lymphatics: No axilla or inguinal lymphadenopathy External genitalia: Non-tender Rectal: Normal - Studies Laboratory Data (last 24 hrs) 06/21/24 06/21/24 06/21/24 22:50 22:50 22:50 WBC 5.70 Hgb 11.7 L Hct 34.5 L Plt Count 196 PT 11.7 INR 1.03 APTT 31.9 Sodium 143 Potassium 3.4 L BUN 28 H Creatinine 2.04 H Glucose 114 H Magnesium 1.7 Total Bilirubin 0.5 AST 26 ALT 36 Alkaline Phosphatase 103 Lipase 39 Female Exam - Female Pelvic Cervix: Non-tender, No discharge Assessment and Plan - Plan Patient is a 59-year-old female admitted inpatient medical surgical with diagnosis of combined acute on chronic CHF and COPD exacerbation with no associated chest pain. Patient baseline home oxygen 4 L, and was still hypoxic upon arrival to ER, needing neb treatment, and Lasix 20 mg IV with positive results. (1) acute on chronic combined CHF and COPD exacerbation. -Albuterol neb treatment every 6 hours. -Oxygen to be titrated to maintain O2 saturation above 90%. - Prednisone 40 mg p.o. daily gold standard for COPD exacerbation. -Azithromycin 500 mg p.o. daily gold standard COPD exacerbation -Will defer from doing a repeat echo at this time since patient had one done on 02/20/24 with a EF of 60 to 65% -Lasix 20 mg IV daily. -Lisinopril 10 mg p.o. daily. -Consult railroad detective. -Consult cloth hand Dr. Garsia. (2)Acute on chronic renal disease. Reviewed patient chart and patient has been followed by nephrology group of Dr. Blake, and the ER contacted and spoke to Go. Will defer any further renal intervention to be done by nephrol ogist. (3) chronic body pain. Order [place] as needed. - Home medications to be resumed after reconciliation. Discharge Plan: Home - Advance Directives Does patient have a Living Will: No Does patient have a Durable POA for Healthcare: No - Code Status/Comfort Care Code Status Assessed: Yes Code Status: Full Code
[2024-06-22 04:23] VITALS: BMI 24.0
[2024-06-22 05:16] LABS: Absolute Lymphocytes (CBC) 0.3 K/uL (0.7-4.9); Absolute Neutrophil 3.9 K/uL (1.8-8.0); Basophils % 0.6 % (0-1.3); Hematocrit 33.8 % (36.0-45.0); Hemoglobin 11.4 g/dL (12.0-15.0); Lymphocytes % 7.5 % (15.3-44.8); MCH 33.3 pg (27.0-35.0); MCHC 33.6 g/dL (32.0-36.0); MCV 98.9 fL (80-100); MPV 9.2 fL (7.6-11.3); Monocytes % 0.7 % (3.3-12.3); Neutrophils % 91.2 % (41.7-73.7); Platelets 183 thou/uL (152-406); RBC Red Blood Cell Count 3.42 M/uL (3.86-4.86); Red Cell Distribution Width 16.3 % (12.1-15.2)
--- NOTE | 2024-06-22 05:47 | RAD REPORT ---
TIME OF STUDY: 06/21/2024 10:45 PM CDT REASON FOR EXAM: CHEST PAIN COMPARISON: None. FINDINGS: AP view of the chest was obtained, chest 1 view. Lungs: The lungs are adequately inflated. Diffuse interstitial markings are noted with some scattered lucencies. Tubular lucencies are also noted, consistent with bronchiectasis. Patchy opacities are noted in the lung bases. Pleura: No pneumothorax. There is no pleural effusion. Heart and Mediastinum: Normal cardiomediastinal silhouette and great vessels.. Bones: No acute bony abnormality.. IMPRESSION: 1. Patchy opacities in the lung bases. 2. Findings consistent with chronic lung disease. Electronically signed by: Portillo Castaneda MD 06/21/2024 11:14 PM CDT RP Due to temporary technical issues with the PACS/[employer] reporting system, reports are being renuka d by the in-house radiologist without review as a courtesy to ensure prompt reporting the interpreting radiologist is fully responsible for the content of the report. Transcribed Date/Time: 06/22/2024 5:46 AM
[2024-06-22 05:54] LABS: Albumin 3.4 g/dL (3.4-5.0); Albumin/Globulin Ratio 0.7 (1.1-1.8); Anion Gap 11.2 mEq/L (5.0-15.0); Bilirubin Total 0.4 mg/dL (0.2-1.0); Globulin 4.9 g/dL (2.3-3.5); Potassium 3.2 mEq/L (3.5-5.1); Protein, Total 8.3 g/dL (6.4-8.2)
[2024-06-22 06:06] LABS: Magnesium 1.6 mg/dL (1.6-2.4)
[2024-06-22 06:08] LABS: Band Neutrophils 1 % (0-1); Lymphocytes 4 % (15-42); Monocytes 2 % (0-10); Platelet Estimate ADEQ; Segmented Neutrophils 93 % (40-80)
[2024-06-22] MEDS: NA CHLORIDE 0.9% 100 ML ONE (06:19)
[2024-06-22] MEDS: POTASSIUM 25 MEQ EFFERV TAB PO ONE (06:19)
[2024-06-22] MEDS: MAGNESIUM SULFATE 1 gm IVPB 1 GM/100 ML BAG IV ONE (06:19)
--- NOTE | 2024-06-22 08:10 | P.PN ---
Date of Service: 06/22/24 Subjective: has been progressively been feeling more SOB at home recently, associated with some increased lower extremity swelling recently hospitalized at [facility] 06/03-06/05 for similar symptoms. has been compliant with home meds per family feels a little better compared to admission uses ~4L NC at home at baseline Physical Exam: GEN: Alert, oriented, NAD CV: Regular rate and rhythm, trace pedal lower extremity edema, systolic murmur Pulm: Labored respirations on 4L NC, diminished at bases b/l, wheeze ABD: soft, nontender, nondistended Neuro: Normal speech, normal affect Problem List: Acute hypoxic respiratory failure secondary to acute on chronic CHF/COPD exacerbations (on 4L home O2) NSTEMI Moderate aortic stenosis TAIWO on CKD (baseline ~1.2) Hypokalemia Hypertension Hyperlipideima Cerebral palsy Hx CAD s/p PCI Hx HIV; nonviral load detected April 2024 Hx Pulmonary fibrosis Hx Pneumocystis Jirovecii Pneumonia Acute hypoxic respiratory failure secondary to acute on chronic CHF/COPD exacerbations (on 4L home O2) Hx Pulmonary fibrosis Hx Pneumocystis Jirovecii Pneumonia on admission, presents with worsening dyspnea, lower extremity edema pitting edema. Denies chest pain. CXR: Patchy opacities in lung bases bilaterally, bronchiectasis, chronic lung disease Recent echo here 02/20/24: 60-65% EF, grade 1 diastolic dysfunction, moderate aortic stenosis, mild pulm htn Had TTE at [facility] 06/04/24: 60-65% EF, grade 1 diastolic dysfunction, severe LV hypertrophy more pronounced in the basilar septum, normal filling pressure, moderate aortic stenosis, Right ventricular systolic pressure is 45-50 mmHg 80% SPO2 on EMS arrival. Placed on non-rebreather and given albuterol en route. Given IV steroids, IV Lasix, nebs in ED. Admit to ICU for close monitoring Cardiology, Pulm consulted on admission IV Azithromycin started on admission. Follow blood cultures Initial ABG with low PO2, HCO3, 87% O2sat continue IV Lasix 20 mg daily oral prednisone, nebs NSTEMI Moderate aortic stenosis Hx CAD s/p PCI s/p recent LHC (02/21/24) which only noted normal coronaries, mild elevated filling pressure Trend troponin's until peak. Monitor on telemetry Seems to always be elevated on past hospitalizations suspect chronic troponin leak Cardiology consulted no further work up per cardio TAIWO on CKD Hypokalemia Baseline ~1.2-1.3 on past hospitalzations Monitor renal function Monitor and replete electrolytes as needed Sees Dr. Blake's group Nephrology consult Hypertension Hyperlipideima Cerebral palsy Hx HIV; nonviral load detected April 2024 confirm home meds, restart as appropriate VTE: heparin sq Code: Full Dispo: Home Pending further diuresis, renal function improves, specialists recs Time Spent Managing Pts Care (In Minutes): 55
[2024-06-22] MEDS: ASPIRIN EC 81 MG TAB PO SCH (08:13)
[2024-06-22] MEDS: AZITHROMYCIN 250 MG TAB PO SCH (08:13)
[2024-06-22] MEDS: predniSONE 20 MG TAB PO SCH (08:13)
[2024-06-22] MEDS: lisinopriL 10 MG TAB PO SCH (08:13)
[2024-06-22] MEDS: HEPARIN 5000 UNIT/ML 1 ML VIAL SQ SCH (08:14)
[2024-06-22 08:32] LABS: Differential Total Cells Count 100
[2024-06-22 08:33] LABS: Blood Morphology Comment NOT SEEN (NOT SEEN)
[2024-06-22] MEDS: ALBUTEROL 2.5 MG/3 ML NEB SOL NEB SCH (09:00)
[2024-06-22] MEDS: FUROSEMIDE 20 MG/ 2ML VIAL IV SCH (09:49)
--- NOTE | 2024-06-22 10:45 | P.CNS ---
Date of Consult: 06/22/24 Chief Complaint: Combine acute on chronic CHF, COPD exacerbation. History of Present Illness: Patient with PMH of pulmonary fibrosis, COPD on home oxygen, DD, presented with worsening SOB, CARRLILO and lower extremities swelling, denies chest pain, no palpitations, no syncope. Allergies No Known Drug Allergies Allergy (Verified 03/20/24 23:01) Unknown Home medications list reviewed: Yes Home Medications: Nystatin 5 ml PO QID PRN 01/11/18 Zolpidem Tartrate 10 mg PO BEDTIME PRN 01/11/18 ALPRAZolam [Xanax*] 1 mg PO TID #90 tab 02/22/24 Albuterol Neb [Proventil 0.083% Neb Soln] 1.25 mg NEB DAILY 30 Days #30 amp 03/21/24 Amitriptyline HCl 100 mg PO BEDTIME 30 Days #30 tab 03/21/24 Atorvastatin Calcium [Lipitor] 40 mg PO BEDTIME 30 Days #30 tab 03/21/24 Gabapentin 100 mg PO TID #90 03/21/24 Ipratropium Neb [Atrovent*] 0.5 mg NEB DAILY 30 Days #30 amp 03/21/24 Nebulizer Accessories [Adult Aerosol Mask] 1 each MC DAILY 30 Days #1 ea 03/21/24 Nebulizer and Compressor [[place] Choice Nebulizer] 1 each MC DAILY 30 Days #1 ea 03/21/24 Amlodipine [Norvasc*] 10 mg PO DAILY #30 tab 04/17/24 Aspirin Chewable [Aspirin Chewable*] 1 tab PO DAILY 04/17/24 Baclofen 5 mg PO BID 04/17/24 Bictegrav/Emtricit/Tenofov Ala [Biktarvy 50-200-25 mg Tablet] 1 tab PO DAILY 04/17/24 Doxepin HCl [Sinequan*] 10 mg PO BEDTIME 04/17/24 Duloxetine HCl 60 mg PO 04/17/24 Fluticasone/Umeclidin/Vilanter [Trelegy Ellipta 200-62.5-25] 1 puff PO DAILY 04/17/24 Hydrocodone 7.5/APAP 325 [[place] 7.5/325 mg*] 1 tab PO Q12H PRN #30 tab 04/17/24 Melatonin 10 mg PO BEDTIME PRN PRN #30 cap 04/17/24 Metoprolol Tartrate [Lopressor*] 25 mg PO BID #60 tab 04/17/24 Zolpidem Tartrate [Ambien] 5 mg PO BEDTIME PRN PRN #20 tab 04/17/24 Cefuroxime [Ceftin] 500 mg PO BID 5 Days #10 tab 04/22/24 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 -: safety pin removal from right lung Psychosocial/ Personal History: Pt lives at home alone - Family History Father Medical History: Heart disease Notes: of [place] Sister Medical History: Heart disease Notes: of [place] - Social History Smoking Status: Current every day smoker Alcohol use: No CD- Drugs: No Caffeine use: Yes Place of Residence: Home Review of Systems 10-point ROS is otherwise unremarkable Physical Examination Temp Pulse Resp BP Pulse Ox 97.7 F 78 21 H 135/65 98 06/22/24 03:30 06/22/24 09:49 06/22/24 05:00 06/22/24 09:49 06/22/24 05:00 General: Alert, In no apparent distress HEENT: Atraumatic, PERRLA, Mucous membr. moist/pink, EOMI, Sclerae nonicteric Neck: Supple, 2+ carotid pulse no bruit, No LAD, Without JVD or thyroid abnormality Respiratory: Clear to auscultation bilaterally, Normal air movement Cardiovascular: Regular rate/rhythm, Normal S1 S2 Gastrointestinal: Normal bowel sounds, No tenderness Musculoskeletal: No tenderness Integumentary: No rashes Neurological: Normal gait, Normal speech, Normal tone, Normal affect Lymphatics: No axilla or inguinal lymphadenopathy Laboratory Data (last 24 hrs) 06/21/24 06/21/24 06/21/24 22:50 22:50 22:50 WBC 5.70 Hgb 11.7 L Hct 34.5 L Plt Count 196 PT 11.7 INR 1.03 APTT 31.9 Sodium 143 Potassium 3.4 L BUN 28 H Creatinine 2.04 H Glucose 114 H Magnesium 1.7 Total Bilirubin 0.5 AST 26 ALT 36 Alkaline Phosphatase 103 Lipase 39 - Problems (1) Chronic diastolic heart failure Current Visit: Yes Status: Acute Plan: Patient looks euvolemic on exam continue lasix 20 mg IV daily, may switch to lasix 20 mg po BID on discharge continue lisinopril continue to monitor input and output and electrolytes. (2) HTN (hypertension) Onset Date: 01/18/16 Current Visit: No Status: Acute Plan: continue lisinopril and continue to monitor (3) NSTEMI (non-ST elevated myocardial infarction) Current Visit: No Status: Acute Plan: coronary angiogram done recently shows normal coronaries Troponin leak is chronic no further cardiac work up needed.
--- NOTE | 2024-06-22 11:56 | EKG ---
Test Date: 2024-06-21 Test Time: 23:36:18 Consumer Science Teacher: DARVIN MEASUREMENT RESULTS: Intervals: Rate: 68 OH: 146 QRSD: 76 QT: 398 QTc: 423 [place]: P: 81 OH: 146 QRS: 82 T: 104 INTERPRETIVE STATEMENTS: Normal sinus rhythm Minimal voltage criteria for LVH, may be normal variant ST elevation, consider early repolarization, pericarditis, or injury Nonspecific T wave abnormality Abnormal ECG Compared to ECG 06/03/2024 10:57:40 Left ventricular hypertrophy now present T-wave abnormality now present Atrial premature complex(es) no longer present Aberrant conduction of supraventricular beat(s) no longer present Atrial abnormality no longer present Possible ischemia no longer present ST (T wave) deviation still present Electronically Signed On 06-22-24 11:56:08 CDT by Aidan Armstrong
--- NOTE | 2024-06-22 12:29 | P.CNS ---
Date of Consult: 06/22/24 Reason for Consult: Respiratory distress Chief Complaint: Combine acute on chronic CHF, COPD exacerbation. History of Present Illness: Patient is 59 years of age very poor historian history of COPD HIV diastolic dysfunction admitted with worsening dyspnea hypoxemia lower extremity edema feeling better not really sure what she takes at home Allergies No Known Drug Allergies Allergy (Verified 03/20/24 23:01) Unknown Home Medications: Nystatin 5 ml PO QID PRN 01/11/18 Zolpidem Tartrate 10 mg PO BEDTIME PRN 01/11/18 ALPRAZolam [Xanax*] 1 mg PO TID #90 tab 02/22/24 Albuterol Neb [Proventil 0.083% Neb Soln] 1.25 mg NEB DAILY 30 Days #30 amp 03/21/24 Amitriptyline HCl 100 mg PO BEDTIME 30 Days #30 tab 03/21/24 Atorvastatin Calcium [Lipitor] 40 mg PO BEDTIME 30 Days #30 tab 03/21/24 Gabapentin 100 mg PO TID #90 03/21/24 Ipratropium Neb [Atrovent*] 0.5 mg NEB DAILY 30 Days #30 amp 03/21/24 Nebulizer Accessories [Adult Aerosol Mask] 1 each MC DAILY 30 Days #1 ea 03/21/24 Nebulizer and Compressor [[place] Choice Nebulizer] 1 each MC DAILY 30 Days #1 ea 03/21/24 Amlodipine [Norvasc*] 10 mg PO DAILY #30 tab 04/17/24 Aspirin Chewable [Aspirin Chewable*] 1 tab PO DAILY 04/17/24 Baclofen 5 mg PO BID 04/17/24 Bictegrav/Emtricit/Tenofov Ala [Biktarvy 50-200-25 mg Tablet] 1 tab PO DAILY 04/17/24 Doxepin HCl [Sinequan*] 10 mg PO BEDTIME 04/17/24 Duloxetine HCl 60 mg PO 04/17/24 Fluticasone/Umeclidin/Vilanter [Trelegy Ellipta 200-62.5-25] 1 puff PO DAILY 04/17/24 Hydrocodone 7.5/APAP 325 [[place] 7.5/325 mg*] 1 tab PO Q12H PRN #30 tab 04/17/24 Melatonin 10 mg PO BEDTIME PRN PRN #30 cap 04/17/24 Metoprolol Tartrate [Lopressor*] 25 mg PO BID #60 tab 04/17/24 Zolpidem Tartrate [Ambien] 5 mg PO BEDTIME PRN PRN #20 tab 04/17/24 Cefuroxime [Ceftin] 500 mg PO BID 5 Days #10 tab 04/22/24 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 -: safety pin removal from right lung Psychosocial/ Personal History: Pt lives at home alone - Family History Father Medical History: Heart disease Notes: of [place] Sister Medical History: Heart disease Notes: of [place] - Social History Smoking Status: Current every day smoker Alcohol use: No CD- Drugs: No Caffeine use: Yes Place of Residence: Home Review of Systems General: Weakness Respiratory: Cough, Shortness of Breath Physical Examination Temp Pulse Resp BP Pulse Ox 97.7 F 78 21 H 135/65 98 06/22/24 03:30 06/22/24 09:49 06/22/24 05:00 06/22/24 09:49 06/22/24 05:00 General: Alert, Oriented x3 Respiratory: Clear to auscultation bilaterally, Diminished Cardiovascular: No edema, Regular rate/rhythm, Normal S1 S2 Laboratory Data (last 24 hrs) 06/21/24 06/21/24 06/21/24 22:50 22:50 22:50 WBC 5.70 Hgb 11.7 L Hct 34.5 L Plt Count 196 PT 11.7 INR 1.03 APTT 31.9 Sodium 143 Potassium 3.4 L BUN 28 H Creatinine 2.04 H Glucose 114 H Magnesium 1.7 Total Bilirubin 0.5 AST 26 ALT 36 Alkaline Phosphatase 103 Lipase 39 - Problems (1) Chronic diastolic heart failure Current Visit: Yes Status: Acute Plan: Patient is 59 years of age very poor historian HIV positive has a history of possible underlying COPD moderate pulmonary hypertension may be from COPD or HIV has chronic hypoxemia BNP is elevated troponins also elevated non-STEMI recent coronary angiogram did not show any evidence of coronary artery disease will also add some sildenafil due to pulmonary hypertension otherwise vital signs are stable DC lisinopril renal function is abnormal DC IV Lasix changed to spironolactone possible discharge tomorrow on spironolactone avoid lisinopril and continue with Lasix I will also added sildenafil continue with outpatient bronchodilators
[2024-06-22] MEDS: SILDENAFIL CITRATE 20 MG TABLET PO SCH (12:56)
[2024-06-22] MEDS: SPIRONOLACTONE 25 MG TABLET PO SCH (12:56)
[2024-06-22] MEDS: CEFTRIAXONE 1,000 MG in NA CHLORIDE 0.9% 50 ML IVPB SCH (22:43)
--- NOTE | 2024-06-23 02:01 | CON ---
Date of Consultation: 06/22/2024 Chief Complaint: Acute kidney injury, cardiorenal syndrome. History Of Present Illness: The patient is admitted to ICU for congestive heart failure exacerbation . She was found to have acute on chronic congestive heart failure. She has history of COPD and has been treated for COPD exacerbation. The patient is a 59-year-old woman with past medical history of chronic pain; COPD; HIV; hypercholesteremia; essential hypertension; seasonal allergies; and diastoli c congestive heart failure, on home oxygen. She is oxygen dependent and remains on 4 L nasal cannula . Recent echo done in February 2024 showed ejection fraction of 60% to 65%. The patient presented to emergency room complaining of increased shortness of breath, lower extremity edema. The patient was admitted for chest pain and CHF exacerbation. Upon arrival to emergency room, she was in respiratory distress and was treated with nebulizer. Subsequently, she was admitted to ICU. ER workup showed A BG 7, pH 7.36, pO2 of 59.8, bicarbonate 19. ER workup showed ABG, pH 7.36, pO2 of 59.8, and saturati on 97.2. BUN 28, creatinine 2.04. BNP 2577. Troponin 232.8. Cardiology is consulted for non-ST el evation myocardial infarction. 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 Family History: Father, heart disease. Sister, heart disease. Social History: Denies alcohol. Denies drugs. Denies tobacco. Review of Systems: Complained of shortness of breath. DICTATION ENDS HERE. EB/MODL Voice ID: [id number] Report ID: [id number]
[2024-06-23 05:57] LABS: Absolute Lymphocytes (CBC) 0.8 K/uL (0.7-4.9); Absolute Monocytes 0.9 K/uL (0.1-1.3); Absolute Neutrophil 7.6 K/uL (1.8-8.0); Basophils % 0.3 % (0-1.3); Hematocrit 30.8 % (36.0-45.0); Hemoglobin 10.5 g/dL (12.0-15.0); Lymphocytes % 8.6 % (15.3-44.8); MCH 33.3 pg (27.0-35.0); MCV 98.1 fL (80-100); MPV 9.3 fL (7.6-11.3); Monocytes % 9.8 % (3.3-12.3); Neutrophils % 81.3 % (41.7-73.7); Platelets 178 thou/uL (152-406); RBC Red Blood Cell Count 3.14 M/uL (3.86-4.86); Red Cell Distribution Width 16.5 % (12.1-15.2)
[2024-06-23 06:18] LABS: Albumin/Globulin Ratio 0.7 (1.1-1.8); Anion Gap 9.2 mEq/L (5.0-15.0); Bilirubin Total 0.3 mg/dL (0.2-1.0); Globulin 4.3 g/dL (2.3-3.5); Potassium 4.2 mEq/L (3.5-5.1); Protein, Total 7.3 g/dL (6.4-8.2)
[2024-06-23] MEDS: FUROSEMIDE 20 MG TABLET PO SCH (08:35)
--- NOTE | 2024-06-23 14:29 | P.PN ---
Subjective Date of Service: 06/23/24 Chief Complaint: Combine acute on chronic CHF, COPD exacerbation. Patient states she feels much better and desires to go home. She is maintaining her baseline oxygen 4 L by nasal cannula. No recorded fever. Physical Examination - Vital Signs Temperature: 97.0 F Blood Pressure: 140/81 Pulse: 77 Respirations: 19 Pulse Ox (%): 94 - Studies Microbiology Data (last 24 hrs): 06/21/24 23:10 Blood - Blood Blood Culture Gram Stain - Final 06/21/24 23:10 Blood - Blood Gram Stain - Final Assessment And Plan - Plan Physical Exam: GEN: Alert, oriented, NAD CV: Regular rate and rhythm, no edema, systolic murmur. Pulm: diminished at bases b/l, mild bibasilar crackles, mild scattered wheezes ABD: soft, nontender, nondistended Neuro: Normal speech, normal affect Problem List: Acute hypoxic respiratory failure secondary to acute on chronic CHF/COPD exacerbations (on 4L home O2) NSTEMI Moderate aortic stenosis TAIWO on CKD (baseline ~1.2) Hypokalemia Hypertension Hyperlipideima Cerebral palsy Hx CAD s/p PCI Hx HIV; nonviral load detected April 2024 Hx Pulmonary fibrosis Hx Pneumocystis Jirovecii Pneumonia Acute hypoxic respiratory failure secondary to acute on chronic CHF/COPD exacerbations (on 4L home O2) Hx Pulmonary fibrosis Hx Pneumocystis Jirovecii Pneumonia on admission, presents with worsening dyspnea, lower extremity edema pitting edema. Denies chest pain. CXR: Patchy opacities in lung bases bilaterally, bronchiectasis, chronic lung disease Recent echo here 02/20/24: 60-65% EF, grade 1 diastolic dysfunction, moderate aortic stenosis, mild pulm htn Had TTE at [facility] 06/04/24: 60-65% EF, grade 1 diastolic dysfunction, severe LV hypertrophy more pronounced in the basilar septum, normal filling pressure, moderate aortic stenosis, Right ventricular systolic pressure is 45-50 mmHg 80% SPO2 on EMS arrival. Placed on non-rebreather and given albuterol en route. Patient oxygen requirement significantly improved, respiratory condition significantly improved IV Solu-Medrol, will transition to oral prednisone IV Lasix changed to p.o. Pulmonary input appreciated. Aldactone added. Continue nebs. Assess patient functional capacity with ambulation and oxygen. Transfer to the medical floor NSTEMI Moderate aortic stenosis Hx CAD s/p PCI s/p recent LHC (02/21/24) which only noted normal coronaries, mild elevated filling pressure Trend troponin's until peak. Monitor on telemetry Seems to always be elevated on past hospitalizations suspect chronic troponin leak Cardiology input appreciated. no further work up per cardio TAIWO on CKD Hypokalemia Baseline ~1.2-1.3 on past hospitalzations Serum creatinine significantly improved from yesterday and now at baseline Nephrology Dr. Blake is following Hypertension Hyperlipideima Cerebral palsy Hx HIV; nonviral load detected April 2024 Continue home medications. VTE: heparin sq Code: Full Dispo: Home
--- NOTE | 2024-06-23 15:16 | PN ---
Date of Progress Note: 06/23/2024 Subjective: The patient was admitted to the hospital with acute kidney injury secondary to cardioren al. The patient was started on diuresis. Kidney function has been improved. Shortness of breath yadav s been improved. Physical Examination: Vital Signs: Blood pressure 140/81, pulse of 77. Chest: Faint rales on the left base. Heart: S1, S2 systolic murmur. Abdomen: Soft, nontender. Extremities: Trace edema. Neurologic: No focality. Laboratory Data: WBC 9.3, hemoglobin 10.5. Sodium 140, potassium 4.2, bicarb 24, BUN 36, creatinine down to 1.3, GFR of 46, calcium 10.2. BNP down to 1600. Albumin 3. ABG; pH 7.36, CO2 35. Current Medications: The patient on include ceftriaxone, aspirin, spironolactone 25 b.i.d., Lasix 20 daily. Assessment And Plan: 1. Acute kidney injury secondary to cardiorenal, recovered and resolved, looked to me in normal volum e. I agree with current diuresis dose. We will follow up. 2. Hypertension with the presence of pulmonary hypertension. Continue spironolactone. Continue Lasi x. Will follow up. Patient was started on sildenafil. Will follow up response. 3. Pulmonary hypertension as above. 4. Acidosis secondary to renal failure, recovered. PAPO/TAMI Voice ID: [id number] Report ID: [id number]
[2024-06-24 05:19] LABS: Albumin 3.1 g/dL (3.4-5.0); Albumin/Globulin Ratio 0.7 (1.1-1.8); Bilirubin Total 0.4 mg/dL (0.2-1.0); Globulin 4.5 g/dL (2.3-3.5); Protein, Total 7.6 g/dL (6.4-8.2)
--- NOTE | 2024-06-24 10:50 | P.PN ---
Subjective Date of Service: 06/24/24 Chief Complaint: Combine acute on chronic CHF, COPD exacerbation. Subjective: No new changes, No C/O voiced, Tolerating diet, Ambulating, Improving Review of Systems 10-point ROS is otherwise unremarkable Physical Examination - Vital Signs Temperature: 98.1 F Blood Pressure: 134/75 Pulse: 70 Respirations: 15 Pulse Ox (%): 96 - Physical Exam General: Alert, In no apparent distress HEENT: Atraumatic, PERRLA, EOMI Neck: Supple, JVD not distended Respiratory: Clear to auscultation bilaterally, Normal air movement Cardiovascular: Regular rate/rhythm, Normal S1 S2 Gastrointestinal: Normal bowel sounds, No tenderness Musculoskeletal: No tenderness Integumentary: No rashes Neurological: Normal speech, Normal tone, Normal affect Lymphatics: No axilla or inguinal lymphadenopathy - Studies Microbiology Data (last 24 hrs): 06/21/24 23:10 Blood - Blood Aerobic Blood Culture - Final Staph Hominis 06/21/24 23:10 Blood - Blood Blood Culture Gram Stain - Final 06/21/24 23:10 Blood - Blood Anaerobic Blood Culture - Final Staph Hominis 06/21/24 23:10 Blood - Blood Gram Stain - Final Medications List Reviewed: Yes Assessment And Plan - Current Problems (Diagnosis) (1) Chronic diastolic heart failure Current Visit: Yes Status: Acute Plan: Patient looks euvolemic on exam recommend lasix 20 mg po BID on discharge continue Aldactone continue to monitor input and output and electrolytes. (2) HTN (hypertension) Onset Date: 01/18/16 Current Visit: No Status: Acute Plan: continue Aldactone and continue to monitor (3) NSTEMI (non-ST elevated myocardial infarction) Current Visit: No Status: Acute Plan: coronary angiogram done recently shows normal coronaries Troponin leak is chronic no further cardiac work up needed. Cardiology will sign off, please call with any questions.
--- NOTE | 2024-06-24 12:27 | EKG ---
Test Date: 2024-06-21 Test Time: 23:40:16 Customer Contact Specialist: DARVIN MEASUREMENT RESULTS: Intervals: Rate: 68 MN: 140 QRSD: 82 QT: 424 QTc: 450 [place]: P: 79 MN: 140 QRS: 81 T: 170 INTERPRETIVE STATEMENTS: Normal sinus rhythm Minimal voltage criteria for LVH, may be normal variant T wave abnormality, consider lateral ischemia Abnormal ECG Compared to ECG 06/21/2024 23:36:18 Possible ischemia now present ST (T wave) deviation no longer present T-wave abnormality still present Electronically Signed On 06-24-24 12:25:07 CDT by Aidan Armstrong
--- NOTE | 2024-06-24 18:56 | P.PN ---
Subjective Date of Service: 06/24/24 Chief Complaint: Combine acute on chronic CHF, COPD exacerbation. Patient states she feels much better. She desaturated to 85% with ambulation and 3 L oxygen by nasal cannula. No recorded fever. Physical Examination - Vital Signs Temperature: 98.0 F Blood Pressure: 126/70 Pulse: 91 Respirations: 16 Pulse Ox (%): 96 - Studies Microbiology Data (last 24 hrs): 06/21/24 23:10 Blood - Blood Aerobic Blood Culture - Final Staph Hominis 06/21/24 23:10 Blood - Blood Blood Culture Gram Stain - Final 06/21/24 23:10 Blood - Blood Anaerobic Blood Culture - Final Staph Hominis 06/21/24 23:10 Blood - Blood Gram Stain - Final Medications List Reviewed: Yes Assessment And Plan - Plan Physical Exam: GEN: Alert, oriented, NAD CV: Regular rate and rhythm, no edema, systolic murmur. Pulm: diminished at bases b/l, mild bibasilar crackles, mild scattered wheezes ABD: soft, nontender, nondistended Neuro: Normal speech, normal affect Problem List: Acute hypoxic respiratory failure secondary to acute on chronic CHF/COPD exacerbations (on 4L home O2) NSTEMI Moderate aortic stenosis TAIWO on CKD (baseline ~1.2) Hypokalemia Hypertension Hyperlipideima Cerebral palsy Hx CAD s/p PCI Hx HIV; nonviral load detected April 2024 Hx Pulmonary fibrosis Hx Pneumocystis Jirovecii Pneumonia Acute hypoxic respiratory failure secondary to acute on chronic CHF/COPD exacerbations (on 4L home O2) Hx Pulmonary fibrosis Hx Pneumocystis Jirovecii Pneumonia on admission, presents with worsening dyspnea, lower extremity edema pitting edema. Denies chest pain. CXR: Patchy opacities in lung bases bilaterally, bronchiectasis, chronic lung disease Recent echo here 02/20/24: 60-65% EF, grade 1 diastolic dysfunction, moderate aortic stenosis, mild pulm htn Had TTE at [facility] 06/04/24: 60-65% EF, grade 1 diastolic dysfunction, severe LV hypertrophy more pronounced in the basilar septum, normal filling pressure, moderate aortic stenosis, Right ventricular systolic pressure is 45-50 mmHg 80% SPO2 on EMS arrival. Placed on non-rebreather and given albuterol en route. Patient oxygen requirement significantly improved, respiratory condition significantly improved IV Solu-Medrol, will transition to oral prednisone IV Lasix changed to p.o. Pulmonary input appreciated. Aldactone added. Continue nebs. Assess patient functional capacity with ambulation and oxygen. Transfer to the medical floor 06/24 Patient desaturated to 85% on 3 L oxygen by nasal cannula. Reassess functional capacity and oxygen saturation with exertion on 4 L in a.m. Continue Lasix NSTEMI Moderate aortic stenosis Hx CAD s/p PCI s/p recent LHC (02/21/24) which only noted normal coronaries, mild elevated filling pressure Trend troponin's until peak. Monitor on telemetry Seems to always be elevated on past hospitalizations suspect chronic troponin leak Cardiology input appreciated. no further work up per cardio TAIWO on CKD Hypokalemia Baseline ~1.2-1.3 on past hospitalzations Serum creatinine significantly improved from yesterday and now at baseline Nephrology Dr. Blake is following Hypertension Hyperlipideima Cerebral palsy Hx HIV; nonviral load detected April 2024 Continue home medications. VTE: heparin sq Code: Full Dispo: Home
--- NOTE | 2024-06-24 19:15 | P.DS ---
Admission Date: 06/22/24 Discharge Date: 06/25/24 Disposition: DC HOME/HOME HEALTH CARE Discharge Condition: FAIR Reason for Admission: Combine acute on chronic CHF, COPD exacerbation. Brief History of Present Illness: 59 years old female with past medical history chronic pain, COPD, HIV, hypercholesteremia, essential hypertension, seasonal allergies, diastolic CHF, home oxygen dependent 4 L, presented to the ER complaining of increased shortness of breath, and lower extremities edema. Upon arrival to ER, patient was in mild respiratory distress and needed nebulizer treatment, and optimization of her oxygen. Patient's initial ABG in ER pH 7.36, PO2 59.8, bicarb 19.6, O2 sat 87.3. Patient BUN 28, creatinine 2.04, with a GFR of 27, BNP 2577. Patient troponin 232.8. Patient denied any chest pain. Patient was hospitalized for further management. Hospital Course: Problem List: Acute hypoxic respiratory failure secondary to acute on chronic CHF/COPD exacerbations (on 4L home O2) NSTEMI Moderate aortic stenosis TAIWO on CKD (baseline ~1.2) Hypokalemia Hypertension Hyperlipideima Cerebral palsy Hx CAD s/p PCI Hx HIV; nonviral load detected April 2024 Hx Pulmonary fibrosis Hx Pneumocystis Jirovecii Pneumonia Patient admitted under flu medical problems addressed: Acute hypoxic respiratory failure secondary to acute on chronic CHF/COPD exacerbations (on 4L home O2) Hx Pulmonary fibrosis Hx Pneumocystis Jirovecii Pneumonia on admission, presents with worsening dyspnea, lower extremity edema pitting edema. Denies chest pain. CXR: Patchy opacities in lung bases bilaterally, bronchiectasis, chronic lung disease Recent echo here 02/20/24: 60-65% EF, grade 1 diastolic dysfunction, moderate aortic stenosis, mild pulm htn Had TTE at [facility] 06/04/24: 60-65% EF, grade 1 diastolic dysfunction, severe LV hypertrophy more pronounced in the basilar septum, normal filling pressure, moderate aortic stenosis, Right ventricular systolic pressure is 45-50 mmHg 80% SPO2 on EMS arrival. Placed on non-rebreather and given albuterol en route. Patient oxygen requirement significantly improved, respiratory condition si gnificantly improved IV Solu-Medrol, will transitioned to oral prednisone IV Lasix changed to p.o. Pulmonary Dr. Obando evaluated patient and assisted with management. Aldactone added. Patient oxygen saturation drops to 85% with ambulation on 3 L however he uses 4 L of oxygen by nasal cannula at baseline. Patient states she feels much better and desires to go home. Dr. Obando placed patient on sildenafil for pulmonary hypertension. Patient is discharged with sildenafil and oral Lasix She is informed to follow-up with Dr. Obando within 1 week. NSTEMI Moderate aortic stenosis Hx CAD s/p PCI s/p recent LHC (02/21/24) which only noted normal coronaries, mild elevated filling pressure Seems to always be elevated on past hospitalizations Troponin trended peaked at 225.8 and then trended down. Cardiology Dr. Armstrong evaluated patient and elevated troponin deemed to be secondary to demand leak. No further work up per Dr. Armstrong. TAIWO on CKD Hypokalemia Baseline ~1.2-1.3 on past hospitalzations Serum creatinine significantly improved from yesterday and now at baseline Nephrology Dr. Blake evaluated patient and assisted with management. Hyperlipideima Cerebral palsy Hx HIV; nonviral load detected April 2024 Continue home medications. Hypertension Home medications resumed on discharge. Vital Signs/Physical Exam: Temp Pulse Resp BP Pulse Ox 98.0 F 91 H 16 126/70 96 06/24/24 18:56 06/24/24 18:56 06/24/24 18:56 06/24/24 18:56 06/24/24 18:56 General: Alert, In no apparent distress, Oriented x3 HEENT: Mucous membr. moist/pink Neck: Supple, JVD not distended Respiratory: Normal air movement, Crackles/rales (Bilateral) Cardiovascular: No edema, Regular rate/rhythm, Normal S1 S2 Gastrointestinal: Normal bowel sounds, Soft and benign, Non-distended Musculoskeletal: No swelling Integumentary: No cyanosis Neurological: Normal speech, Normal strength at 5/5 x4 extr, Cranial nerves 3-12 intact Laboratory Data at Discharge: WBC 9.30 thou/uL (4.3-10.9) 06/23/24 05:24 Hgb 10.5 g/dL (12.0-15.0) L 06/23/24 05:24 Hct 30.8 % (36.0-45.0) L 06/23/24 05:24 Plt Count 178 thou/uL (152-406) 06/23/24 05:24 PT 11.7 SECONDS (10-13.0) 06/21/24 22:50 INR 1.03 06/21/24 22:50 APTT 31.9 SECONDS (27.2-37.4) 06/21/24 22:50 Sodium 141 mEq/L (136-145) 06/24/24 04:28 Potassium 4.0 mEq/L (3.5-5.1) 06/24/24 04:28 BUN 33 mg/dL (7-18) H 06/24/24 04:28 Creatinine 1.26 mg/dL (0.55-1.02) H 06/24/24 04:28 Glucose 97 mg/dL (74-106) 06/24/24 04:28 Magnesium 2.0 mg/dL (1.6-2.4) 06/23/24 05:24 Total Bilirubin 0.4 mg/dL (0.2-1.0) 06/24/24 04:28 AST 14 U/L (15-37) L 06/24/24 04:28 ALT 23 U/L (13-56) 06/24/24 04:28 Alkaline Phosphatase 80 U/L (45-117) 06/24/24 04:28 Lipase 39 U/L (13-75) 06/21/24 22:50 Home Medications: Nystatin 5 ml PO QID PRN 01/11/18 ALPRAZolam [Xanax*] 1 mg PO TID #90 tab 02/22/24 Albuterol Neb [Proventil 0.083% Neb Soln] 1.25 mg NEB DAILY 30 Days #30 amp 03/21/24 Amitriptyline HCl 100 mg PO BEDTIME 30 Days #30 tab 03/21/24 Atorvastatin Calcium [Lipitor] 40 mg PO BEDTIME 30 Days #30 tab 03/21/24 Gabapentin 100 mg PO TID #90 03/21/24 Ipratropium Neb [Atrovent*] 0.5 mg NEB DAILY 30 Days #30 amp 03/21/24 Nebulizer Accessories [Adult Aerosol Mask] 1 each MC DAILY 30 Days #1 ea 03/21/24 Nebulizer and Compressor [[place] Choice Nebulizer] 1 each MC DAILY 30 Days #1 ea 03/21/24 Amlodipine [Norvasc*] 10 mg PO DAILY #30 tab 04/17/24 Aspirin Chewable [Aspirin Chewable*] 1 tab PO DAILY 04/17/24 Baclofen 5 mg PO BID 04/17/24 Bictegrav/Emtricit/Tenofov Ala [Biktarvy 50-200-25 mg Tablet] 1 tab PO DAILY 04/17/24 Doxepin HCl [Sinequan*] 10 mg PO BEDTIME 04/17/24 Duloxetine HCl 60 mg PO 04/17/24 Fluticasone/Umeclidin/Vilanter [Trelegy Ellipta 200-62.5-25] 1 puff PO DAILY 04/17/24 Hydrocodone 7.5/APAP 325 [[place] 7.5/325 mg*] 1 tab PO Q12H PRN #30 tab 04/17/24 Melatonin 10 mg PO BEDTIME PRN PRN #30 cap 04/17/24 Metoprolol Tartrate [Lopressor*] 25 mg PO BID #60 tab 04/17/24 Zolpidem Tartrate [Ambien] 5 mg PO BEDTIME PRN PRN #20 tab 04/17/24 Furosemide [Lasix*] 20 mg PO DAILY #30 tab 06/24/24 Sildenafil Citrate [Revatio*] 20 mg PO BID #60 tab 06/24/24 Spironolactone [Aldactone*] 25 mg PO BID #60 tab 06/24/24 predniSONE [Prednisone*] 40 mg PO DAILY #5 tab 06/24/24 New Medications: Spironolactone [Aldactone*] 25 mg PO BID #60 tab Furosemide [Lasix*] 20 mg PO DAILY #30 tab predniSONE [Prednisone*] 40 mg PO DAILY #5 tab Sildenafil Citrate [Revatio*] 20 mg PO BID #60 tab Diet: AHA Activity: Fall precautions Followup: Zaria Orellana MD [Primary Care Provider] - 1-2 Weeks Time spent managing pt's care (in minutes): 38
--- NOTE | 2024-06-24 19:38 | PN ---
Date of Progress Note: 06/24/2024 Subjective: The patient was admitted to the hospital with acute kidney injury secondary to cardioren al. The patient had been responding very well to diuresis. Shortness of breath had been subsided si gnificantly. Kidney function improving. Physical Examination: Vital Signs: When I saw the patient, blood pressure of 134/73, pulse of 92, afebrile. Chest: Clear to auscultation. Heart: S1, S2. Regular. Abdomen: Soft, nontender. Extremities: No edema. Neurologic: Alert. No focality. Laboratory Data: Sodium 141, potassium 4, bicarb 26, BUN 33, creatinine 1.2, GFR 49, calcium of 10, hemoglobin 10.5. Current Medications: The patient on, it includes: 1. Aspirin. 2. Ceftriaxone. 3. Spironolactone. 4. Tylenol. 5. Lasix. Assessment And Plan: 1. Acute kidney injury secondary to cardiorenal. Continue to recover. I am going to continue curren t diuresis dose. Continue spironolactone and Lasix 20 mg daily and we will monitor. The patient sunday ared from the Renal standpoint for discharge planning. 2. Hypertension with pulmonary hypertension. Continue spironolactone. Continue Lasix. 3. Pulmonary hypertension, as above. 4. Acidosis secondary to renal failure, resolved. 5. HIV, as by primary. ALLEN Voice ID: [id number] Report ID: [id number]
[2024-06-25 10:21] VITALS: O2SAT 97
--- NOTE | 2024-06-25 12:29 | PN ---
Date of Progress Note: 06/25/2024 Subjective: The patient was admitted to the hospital with acute kidney injury secondary to cardioren al. The patient found to have pulmonary hypertension. The patient was started on diuresis. The pat ient responded very well. The patient is feeling better. Physical Examination: Vital Signs: When I saw the patient, blood pressure 151/79, pulse of 76. The patient had good urine output of 1800, negative of 900. Chest: Clear to auscultation. Heart: S1, S2. Systolic murmur. Abdomen: Soft, nontender. Extremities: No edema. Neurologic: Alert. No focality. Laboratory Data: Hemoglobin 10.5. Sodium 141, potassium 4, bicarb 26, BUN 33, creatinine 1.2. GFR of 49, calcium of 10. BNP of 1178. Current Medications: The patient is on include spironolactone, heparin, albuterol, ceftriaxone, Lasi x. Assessment And Plan: 1. Acute kidney injury secondary to cardiorenal, recover very well. Continue current diuresis dose. The patient cleared from the Renal standpoint for discharge planning. 2. Hypertension, controlled, optimal. Continue current treatment. 3. Pulmonary hypertension. I agree with adding spironolactone. Follow up with Pulmonary. 4. Congestive heart failure with exacerbation. Continue diuresis. PAPO/TAMI Voice ID: [id number] Report ID: [id number]
[2024-06-25 12:32] VITALS: BP 138/75; TEMP 97.4
== END 2024-06-25 13:33 | disposition home health service (06) | DRG 280 ==
LOC: ER 22:40 → ERHOLD 06-22 02:13 → 3RD-ICU 06-22 02:56 → 4TH 06-23 22:15
PROVIDERS: ADMIT Hospitalist; ATTEND Internal Medicine
PROC: 4A033R1 Measurement of Arterial Saturation, Peripheral, Percutaneous Approach (ICD-10-PCS; principal; 2024-06-22)
PROC: 5A09357 Assistance with Respiratory Ventilation, Less than 24 Consecutive Hours, Continuous Positive Airway Pressure (ICD-10-PCS; 2024-06-22)
DX: I13.0 Hypertensive heart and chronic kidney disease with heart failure and stage 1 through stage 4 chronic kidney disease, or unspecified chronic kidney disease (principal); I50.33 Acute on chronic diastolic (congestive) heart failure; I21.4 Non-ST elevation (NSTEMI) myocardial infarction; J18.9 Pneumonia, unspecified organism; J96.01 Acute respiratory failure with hypoxia; J44.0 Chronic obstructive pulmonary disease with (acute) lower respiratory infection; J44.1 Chronic obstructive pulmonary disease with (acute) exacerbation; N17.9 Acute kidney failure, unspecified; E87.20 Acidosis, unspecified; N18.9 Chronic kidney disease, unspecified; E87.6 Hypokalemia; G80.9 Cerebral palsy, unspecified; I27.20 Pulmonary hypertension, unspecified; E78.00 Pure hypercholesterolemia, unspecified; I35.0 Nonrheumatic aortic (valve) stenosis; I25.2 Old myocardial infarction; I25.10 Atherosclerotic heart disease of native coronary artery without angina pectoris; F17.200 Nicotine dependence, unspecified, uncomplicated; Z60.2 Problems related to living alone; Z21 Asymptomatic human immunodeficiency virus [HIV] infection status; Z95.5 Presence of coronary angioplasty implant and graft; Z79.82 Long term (current) use of aspirin; Z99.81 Dependence on supplemental oxygen; Z79.899 Other long term (current) drug therapy
CPT/HCPCS: 36415; 36600; 71045; 80048; 80053; 80076; 82550; 82805; 83605; 83690; 83735; 83880; 84484; 85025; 85610; 85730; 87040; 87077; 87186; 87205; 93005; 94640; 94660; 94760; 96372; 96374; 96375; 97116; 97161; 97530; 99285; J0696; J1644; J1650; J1938; J2919; J3475; J7512; J7613; J7614

== ENCOUNTER 2024-11-18 11:17 | Emergency (ER) | payer OTHER ==
[2024-11-18] MEDS ORDERED: ACETAMINOPHEN 500 MG TAB ONE (11:36)
--- NOTE | 2024-11-18 11:37 | ER ---
Nurse's Notes [facility] Name: Charito Michael Age: 59 yrs Sex: Female : 1965 Arrival Date: 11/18/2024 Time: 11:17 Bed DX2 Private MD: Diagnosis: COPD/ Chronic obstructive pulmonary disease, unspecified Presentation: 11/18 11:23 Chief complaint: Patient states: SHORTNESS OF BREATH BEGINNING YESTERDAY AFTER RUNNING dd2 OUT OF INHALER. REPORTS HOME O2 INCREASED TO 6LMP. Coronavirus screen: At this time, the client does not indicate any symptoms associated with coronavirus-19. Ebola Screen: No symptoms or risks identified at this time. Initial Sepsis Screen: Does the patient meet any 2 criteria? No. Patient's initial sepsis screen is negative. Does the patient have a suspected source of infection? No. Patient's initial sepsis screen is negative. Risk Assessment: Do you want to hurt yourself or someone else? Patient reports no desire to harm self or others. Onset of symptoms was November 17, 2024. 11:23 Method Of Arrival: Ambulatory dd2 11:23 Acuity: GIULIANO 3 dd2 Triage Assessment: 11:27 General: Appears uncomfortable, Behavior is calm, cooperative, appropriate for age. dd2 Pain: Complains of pain in back. Respiratory: Reports shortness of breath at rest on exertion Airway is patent Respiratory effort is even, labored, Respiratory pattern is regular, symmetrical, Onset: The symptoms/episode began/occurred yesterday, the patient has moderate shortness of breath. Historical: - Allergies: 11:27 NKA; dd2 - PMHx: 11:27 Back pain; CHF; Chronic pain; COPD; HIV; Hypercholesterolemia; Hypertension; seasonal dd2 allergies; - PSHx: 11:27 Total abdominal hysterectomy; dd2 - Immunization history:: Adult Immunizations unknown. - Infectious Disease History:: Denies. - Social history:: Smoking status: unknown. Screenin:37 [facility] ED Fall Risk Assessment (Adult) History of falling in the last 3 months, iw including since admission No falls in past 3 months (0 pts) Confusion or Disorientation No (0 pts) Intoxicated or Sedated No (0 pts) Impaired Gait No (0 pts) Mobility Assist Device Used No (0 pt) Altered Elimination No (0 pt) Score/Fall Risk Level 0 - 2 = Low Risk Oriented to surroundings, Maintained a safe environment. Abuse screen: Denies threats or abuse. Nutritional screening: No deficits noted. Tuberculosis screening: No symptoms or risk factors identified. Assessment: 11:36 General: Appears in no apparent distress. Behavior is calm, cooperative. Pain: iw Complains of pain in back. Neuro: Level of Consciousness is awake, alert, obeys commands, Oriented to person, place, time, situation, Moves all extremities. Cardiovascular: Rhythm is regular. Respiratory: Respiratory effort is even, unlabored, Respiratory pattern is regular, symmetrical, Breath sounds are clear bilaterally. GI: Abdomen is non-distended. Derm: Skin is intact, is healthy with good turgor. Vital Signs: 11:23 BP 133 / 82; Pulse 73; Resp 20; Temp 98.4; Pulse Ox 81% on 6 lpm NC; Pain 7/10; dd2 11:53 BP 134 / 79; Pulse 74; Resp 20 S; Pulse Ox 94% on 4 lpm NC; iw 11:23 Pain Scale: Adult dd2 ED Course: 11:18 Patient arrived in ED. al6 11:26 Francisco Jaeger DO is Attending Physician. ms3 11:27 Triage completed. dd2 11:27 Arm band placed on right wrist. dd2 11:36 Kelly Deleon, RN is Primary Nurse. iw 11:36 Patient has correct armband on for positive identification. iw 11:37 No provider procedures requiring assistance completed. iw 11:53 Patient did not have IV access during this emergency room visit. iw Administered Medications: No medications were administered Medication: 11:37 VIS not applicable for this client. iw Outcome: 11:36 Discharge ordered by MD. ms3 12:36 Discharged to home ambulatory, iw 12:36 Condition: good 12:36 Discharge instructions given to patient, Instructed on discharge instructions, follow up and referral plans. Demonstrated understanding of instructions, follow-up care, medications, Prescriptions given X 2, 12:37 Patient left the ED. iw Signatures: Kelly Deleon, HALLE RN iw Francisco Jaeger DO DO ms3 BUSHRA MUNGUIA RN RN dd2 Izzy Vickers al6 Corrections: (The following items were deleted from the chart) 11/19 08:50 11/18 12:36 Condition: good iw iw 11/19 08:50 11/18 12:36 Discharge instructions given to patient, Instructed on discharge iw instructions, follow up and referral plans. Demonstrated understanding of instructions, follow-up care, iw
--- NOTE | 2024-11-18 12:38 | EDPHYS ---
Physician Documentation [facility] Name: Charito Michael Age: 59 yrs Sex: Female : 1965 Arrival Date: 11/18/2024 Time: 11:17 Bed DX2 Private MD: ED Physician Francisco Jaeger HPI: 11/18 11:39 This 59 yrs old Black Female presents to ER via Ambulatory with complaints of Shortness ms3 Of Breath. 11:39 59-year-old female past medical history of back pain, congestive heart failure, chronic ms3 pain, COPD, HIV, hypercholesterolemia, hypertension presents to the emergency department for shortness of breath yesterday. Patient denies pain, shortness of breath, fevers, chills, nausea, vomiting or cough today. Historical: - Allergies: 11:27 NKA; dd2 - PMHx: 11:27 Back pain; CHF; Chronic pain; COPD; HIV; Hypercholesterolemia; Hypertension; seasonal dd2 allergies; - PSHx: 11:27 Total abdominal hysterectomy; dd2 - Immunization history:: Adult Immunizations unknown. - Infectious Disease History:: Denies. - Social history:: Smoking status: unknown. ROS: 11:39 Constitutional: Negative for fever, and chills. Cardiovascular: Negative for chest ms3 pain, and palpitations. Respiratory: Negative for shortness of breath, cough, wheezing, and pleuritic chest pain. Shortness of breath yesterday resolved Abdomen/GI: Negative for abdominal pain, nausea, vomiting, diarrhea, and constipation, Exam: 11:39 Constitutional: This is a well developed, well nourished patient who is awake, alert, ms3 and in no acute distress. Cardiovascular: Regular rate and rhythm with a normal S1 and S2. No gallops, murmurs, or rubs. Normal PMI, no JVD. No pulse deficits. Respiratory: Lungs have equal breath sounds bilaterally, clear to auscultation and percussion. No rales, rhonchi or wheezes noted. No increased work of breathing, no retractions or nasal flaring. Abdomen/GI: Soft, non-tender, with normal bowel sounds. No distension or tympany. No guarding or rebound. No evidence of tenderness throughout. Skin: Warm, dry with normal turgor. Normal color with no rashes, no lesions, and no evidence of cellulitis. MS/ Extremity: Pulses equal, no cyanosis. Neurovascular intact. Full, normal range of motion. Vital Signs: 11:23 BP 133 / 82; Pulse 73; Resp 20; Temp 98.4; Pulse Ox 81% on 6 lpm NC; Pain 7/10; dd2 11:53 BP 134 / 79; Pulse 74; Resp 20 S; Pulse Ox 94% on 4 lpm NC; iw 11:23 Pain Scale: Adult dd2 MDM: 11:36 Medical Screening Exam initiated ms3 11:39 Differential diagnosis: Chronic Obstructive Pulmonary Disease Medication refill. Data ms3 reviewed: vital signs, nurses notes, and as a result, I will discharge patient. I considered the following discharge prescriptions or medication management in the emergency department See prescriptions. Counseling: I had a detailed discussion with the patient and/or guardian regarding the historical points, exam findings, and any diagnostic results supporting the discharge/admit diagnosis, the need for outpatient follow up, to return to the emergency department if symptoms worsen or persist or if there are any questions or concerns that arise at home. Special discussion: I discussed with the patient/guardian in detail that at this point there is no indication for admission to the hospital. It is understood, however, that if the symptoms persist or worsen the patient needs to return immediately for re-evaluation. ED course: Patient just requesting medication refills. Patient is without symptoms in the emergency department. Patient to follow-up with primary care physician 2 to 3 days. Patient understands agrees to plan. All questions were answered. Return precautions were discussed include worsening symptoms, or any other concerns. Administered Medications: No medications were administered Disposition: 20:06 Chart complete. ms3 Disposition Summary: 11/18/24 11:36 Discharge Ordered Notes: Location: Home ms3 Condition: Stable ms3 Diagnosis - COPD/ Chronic obstructive pulmonary disease, unspecified ms3 Followup: ms3 - With: Private Physician - When: 2 - 3 days - Reason: Recheck today's complaints Discharge Instructions: - Discharge Summary Sheet ms3 - Chronic Obstructive Pulmonary Disease ms3 Forms: - Medication Reconciliation Form ms3 - Antibiotic Education ms3 - Prescription Opioid Use ms3 - Patient Portal Instructions ms3 - Leadership Thank You Letter ms3 Prescriptions: - Trelegy Ellipta 200-62.5-25 mcg Inhalation Blister, With Inhalation Device - administer 1 inhalation INHALATION route daily; 1 unit; Refills: 0, Product ms3 Selection Permitted - albuterol sulfate 90 mcg/actuation Inhalation Aerosol Powder, Breath Activated - administer 2 puff INHALATION route every 4 hours as needed for shortness of ms3 breath or wheezing; 1 unit; Refills: 0, Product Selection Permitted - fluticasone propionate 50 mcg/actuation Inhalation Blister, With Inhalation Device - administer 2 inhalation INHALATION route 2 times per day; 1 unit; Refills: 0, ms3 Product Selection Permitted Signatures: Francisco Jaeger, DO ms3 BUSHRA MUNGUIA RN RN dd2
[2024-11-18 13:02] VITALS: TEMP 98.4
[2024-11-18 13:04] VITALS: BP 134/79; O2SAT 94
--- OUTSIDE RECORDS SUMMARY | 2024-11-18 13:22 | XMS REPORT | Continuity of Care Document ---
Author Name Unknown Address [address] [facility] [place] [address] [facility] [place] Address [address] [facility] [place] [address] Care Team Providers Care Soccer Referee Name Role Phone Delfino Schumacher [facility] Physician Zaria Orellana Attending Clinician Unavail able Guero Verdugo DDS Attending Clinician [phone] GUERO VERDUGO Attending Clinician UnavailKENJI Bhagat Attending Clinician Unavailable KENJI LORD Attending Clinician Unavailable Spenser Chahal DO Attending Clinician [phone] Atif Jackson Attending Clinician [phone] Abbi Rivera RN Attending Clinician Unava ilKenji Bingham MD Attending Clinician [phone] Doctor Unassigned, Friendship Attending Clinician U iván Huerta AUTOGRAPHER, Lianet Funes Attending Clinician [phone] Lena NERI, Lj Bustillos Attending Clinician Unavail able KVNG ROBERSON Attending Clinician Unavailable Ezra GLORIA, Anyi Attending Clinician [phone] Kvng Roberson DO Attending Clinician [phone] GASTON HOBBS Attending Clinician Unavailable Gaston Hobbs MD Attending Clinician [phone] Mark AUTOGRAPHER, Kasandra Attending Clinician [phone] LEE HENDERSON Attending Clinician Unavailab CLARITZA Booth Attending Clinician Unavail able Doctor Unassigned, Friendship Attending Clinician U iván Almaguer RN, Jeanine Jones Attending Clinician Unava Guerline Devi MD Attending Clinician [phone] Guero Pantoja Attending Clinician [phone] GUERO MARTINEZ Attending Clinician Unavailable Osman Ware RN Attending Clinician Unavaila harvey RODRIGUEZ Attending Clinician Unavailable Dean_R Attending Clinician Unavailable APOLINAR WEBER Attending Clinician Unavailable Pgy2 Attending Clinician Unavailable Apolinar Weber MD Attending Clinician + [phone] Endeina Mccarty MD Attending Clinician + [phone] BILLY VALERIO Attending Clinician UnavailToby Madden MD Attending Clinician [phone] Delores Garcia MD, A Clinton Attending Clinician [phone] Billy Valerio MD Attending Clinician [phone] Evette Dunn MA Attending Clinician Unavailab KENNEDI Pop Attending Clinician Unavailable Eduarda GLORIA, Kennedi Islas Attending Clinician + [phone] Mikael Quiroz Attending Clinician + [phone] LJ LIANG Attending Clinician Unavailable Berto WALKER, Lj Petersen Attending Clinician + [phone] MARGARET NNUEZ Attending Clinician Unavailab Margaret Rodgers DO Attending Clinician [phone] Bonny Morris MD Attending Clinician + [phone] BONNY MORRIS Attending Clinician UnavailTerri Hitchcock Attending Clinician [phone] Franics KNOX Dawn Mirna Attending Clinician [phone] Maggie_A Attending Clinician Unavailable Josse Steele Attending Clinician JOSSE LOCKHART Attending Clinician UnavailKENJI Morrison Admitting Clinician Unavailable Kenji Lord MD Admitting Clinician [phone] KVNG ROBERSON Admitting Clinician Unavailable Kvng Roberson DO Admitting Clinician +[phone] GASTON HOBBS Admitting Clinician Unavailable JENNIFER Admitting Clinician Unavailable Av Admitting Clinician Unavailable Tressa ESTRELLA JR Admitting Clinician Unavailtressa Estrella Jr., MD, Tressa Schwartz Admitting Clinician [phone] KENNEDI BLUE Admitting Clinician Unavailable Sammi Admitting Clinician Unavailable Payers Payer Name Policy Type Policy Number Effective Date Expirati on Date Source [facility] DUAL COMP HMO-POS D SNP [id number] 2022 00:00:00 [facility] MCR Dual Complete (HMO-POS D-SNP) [id number] [facility] (MEDICARE REPLACEMENT HMO) [id number] 2020 00:00:00 Problems Condition Name Condition Details Condition Category Status Onset Date Resolution Date Last Treatment Date Treating Clinician Comments Source SOB (shortness of breath) SOB (shortness of breath) Disease Active 06-09 00:00: 00 [facility] Shortness of breath Shortness of breath Disease Active 06-03 00:00: 00 [facility] COPD exacerbati on COPD exacerbati on Disease Active 05-18 00:00: 00 [facility] Troponin I above reference range Troponin I above reference range Disease Active 05-18 00:00: 00 [facility] Other hyperlipid emia Other hyperlipid emia Disease Active 05-18 00:00: 00 [facility] TAIWO (acute kidney injury) TAIWO (acute kidney injury) Disease Active 05-18 00:00: 00 [facility] Aortic stenosis Aortic stenosis Disease Active 05-18 00:00: 00 [facility] 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 Disease Active 05-18 00:00: 00 [facility] Acute cough Acute cough Disease Active 05-15 00:00: 00 [facility] Acute cough Acute cough Disease Active 05-15 00:00: 00 [facility] 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 Active 06-27 00:00: 00 [facility] Bacteremia Bacteremia Disease Active 06-09 00:00: 00 [facility] Medically noncomplia nt Medically noncomplia nt Disease Active 09-02 00:00: 00 [facility] Thrush Thrush Disease Active 09-02 00:00: 00 [facility] Obesity (BMI 30-39.9) Obesity (BMI 30-39.9) Disease Active 05-31 00:00: 00 [facility] Genital warts Genital warts Disease Active 08-25 00:00: 00 [facility] H/O: hysterecto my H/O: hysterecto my Disease Active 08-25 00:00: 00 [facility] [id number] Allergic rhinitis, unspecifie d seasonalit y, unspecifie d trigger Problem [facility] [id number] Mental developmen carmen delay Problem [facility] [id number] History of hepatitis C Problem [facility] [id number] 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) Problem [facility] [id number] HIV disease Problem [facility] [id number] +5th digit eff 11/12/19*St age 1 chronic kidney disease Problem [facility] [id number] Chronic kidney disease, unspecifie d CKD stage Problem [facility] [id number] Essential hypertensi on Problem [facility] 557792731 Chronic heart failure with preserved ejection fraction Problem [facility] [id number] Pulmonary emphysema, unspecifie d emphysema type Problem [facility] [id number] Mental disability Problem [facility] [id number] Lumbago with sciatica, right side Problem [facility] [id number] Lumbago with sciatica, left side Problem [facility] [id number] 07 On home O2 Problem [facility] n [facility] [id number] Environmen carmen allergies Problem [facility] [id number] Vitamin D deficiency Problem [facility] [id number] Other chronic pain Problem [facility] 88283521 Cardiac murmur Problem [facility] [id number] CHRIS (generaliz ed anxiety disorder) Problem [facility] [id number] Mixed hyperlipid emia Problem [facility] 262850328 Seasonal allergies Problem [facility] Allergies, Adverse Reactions, Alerts Allergy Name Allergy Type Status Severity Reaction(s) Onset Date Inactive Date Treating Clinician Comments Source NO KNOWN ALLERGIE S Drug Class Active [facility] Social History Social Habit Start Date Stop Date Quantity Comments Source Gender identity [facility] History of Tobacco Use Current Smoker [facility] Sex Assigned At [facility] Alcoholic beverage intake 2024-06-03 00:00:00 2024-06-03 00:00:00 Current non-drinker of alcohol (finding) [facility] Tobacco use and exposure 2024-06-03 00:00:00 2024-06-03 00:00:00 Smokeless tobacco non-user [facility] Alcohol intake 2023-05-16 00:00:00 2023-05-16 00:00:00 Current non-drinker of alcohol (finding) [facility] Exposure to SARS-CoV-2 (event) 2022-03-24 00:00:00 2022-04-03 13:07:00 Not sure [facility] History of Social function 2022-04-03 00:00:00 2022-04-03 00:00:00 [facility] Smoking Status Start Date Stop Date Source Never smoked tobacco [facility] Current Smoker 2023-12-06 00:00:00 [facility] Medications Ordered Medication Name Filled Medication Name Start Date Stop Date Current Medication? Ordering Clinician Indication Dosage Frequency Signature (SIG) Comments Components Source baclofen 5 mg tablet 10-27 00:00: 00 Yes 1mg Delfino Orta Biktarvy 50 mg-200 mg-25 mg tablet 10-20 00:00: 00 Yes mg Delfino Orta albuterol sulfate HFA 90 mcg/actuati on aerosol inhaler 10-19 00:00: 00 Yes 2mcg/ac tuation Delfino Orta albuterol sulfate HFA 90 mcg/actuati on aerosol inhaler 10-15 00:00: 00 Yes 2mcg/ac tuation Delfino Orta fluticasone propionate 50 mcg/actuati on nasal spray,suspe nsion 10-15 00:00: 00 Yes 2mcg/ac tuation Delfino Orta aspirin 81 mg tablet,ruchi yed release 10-06 00:00: 00 Yes mg Delfino Orta Biktarvy 50 mg-200 mg-25 mg tablet 10-06 00:00: 00 Yes mg Delfino Orta albuterol sulfate HFA 90 mcg/actuati on aerosol inhaler 10-06 00:00: 00 Yes 2mcg/ac tuation Delfino Orta amlodipine 10 mg tablet - 00:00: 00 Yes 1mg Delfino Orta losartan 100 mg-hydrochl orothiazide 12.5 mg tablet 10-06 00:00: 00 Yes 1mg Delfino Orta metoprolol tartrate 25 mg tablet 10-06 00:00: 00 Yes 1mg Delfino Orta atorvastati n 40 mg tablet 10-06 00:00: 00 Yes 1mg Delfino Orta fluticasone propionate 50 mcg/actuati on nasal spray,suspe nsion 10-06 00:00: 00 Yes 2mcg/ac tuation Delfino Orta duloxetine 60 mg capsule,del ayed release 10-06 00:00: 00 Yes 1mg Delfino Orta trazodone 50 mg tablet 09-17 00:00: 00 Yes 1mg Delfino Orta albuterol sulfate HFA 90 mcg/actuati on aerosol inhaler 09-17 00:00: 00 Yes 2mcg/ac tuation Delfino Orta ipratropium bromide 0.02 % solution for inhalation 09-17 00:00: 00 Yes 25% Delfino Orta prednisone 20 mg tablet 09-14 00:00: 00 Yes 2mg Delfino Orta amoxicillin 875 mg-potassiu linn clavulanate 125 mg tablet 09-14 00:00: 00 Yes 1mg Delfino Orta ibuprofen 800 mg tablet 09-14 00:00: 00 Yes 1mg Delfino Orta ipratropium bromide 0.02 % solution for inhalation 09-14 00:00: 00 Yes 25% Delfino Orta ibuprofen 800 mg tablet 08-19 00:00: 00 Yes 1mg Delfino Orta albuterol sulfate HFA 90 mcg/actuati on aerosol inhaler 08-17 00:00: 00 Yes 2mcg/ac tuation Delfino Orta trazodone 50 mg tablet 08-07 00:00: 00 Yes 1mg Delfino Orta albuterol sulfate HFA 90 mcg/actuati on aerosol inhaler 08-07 00:00: 00 Yes 2mcg/ac tuation Delfino Orta trazodone 50 mg tablet 08-06 00:00: 00 Yes 1mg Delfino Orta albuterol sulfate HFA 90 mcg/actuati on aerosol inhaler 08-06 00:00: 00 Yes 2mcg/ac tuation Delfino Orta aspirin 81 mg tablet,ruchi yed release 08-05 00:00: 00 Yes mg Delfino Orta albuterol sulfate HFA 90 mcg/actuati on aerosol inhaler 08-05 00:00: 00 Yes mcg/act uation Delfino Orta amlodipine 10 mg tablet 08-05 00:00: 00 Yes 1mg Delfino Orta losartan 100 mg-hydrochl orothiazide 12.5 mg tablet 08-05 00:00: 00 Yes 1mg Delfino Orta metoprolol tartrate 25 mg tablet 08-05 00:00: 00 Yes 1mg Delfino Orta atorvastati n 40 mg tablet 08-05 00:00: 00 Yes 1mg Delfino Orta duloxetine 60 mg capsule,del ayed release 08-05 00:00: 00 Yes 1mg Delfino Orta Biktarvy 50 mg-200 mg-25 mg tablet 07-01 00:00: 00 Yes mg Delfino Orta amlodipine 10 mg tablet 07-01 00:00: 00 Yes 1mg Delfino Orta losartan 100 mg-hydrochl orothiazide 12.5 mg tablet 07-01 00:00: 00 Yes 1mg Delfino Orta metoprolol tartrate 25 mg tablet 07-01 00:00: 00 Yes 1mg Delfino Orta atorvastati n 40 mg tablet 07-01 00:00: 00 Yes 1mg Delfino Orta fluticasone propionate 50 mcg/actuati on nasal spray,suspe nsion 07-01 00:00: 00 Yes 2mcg/ac tuation Delfino Orta doxepin 10 mg capsule 07-01 00:00: 00 Yes 1mg Delfino Orta trazodone 50 mg tablet 06-30 00:00: 00 Yes mg Delfino Orta aspirin 81 mg tablet,ruchi yed release 06-23 00:00: 00 Yes mg Delfino Orta trazodone 50 mg tablet 06-23 00:00: 00 Yes mg Delfino Orta albuterol sulfate HFA 90 mcg/actuati on aerosol inhaler 06-23 00:00: 00 Yes mcg/act uation Delfino Orta fluticasone propionate 50 mcg/actuati on nasal spray,suspe nsion 06-23 00:00: 00 Yes 2mcg/ac tuation Delfino Orta furosemide 20 mg tablet 06-20 00:00: 00 Yes [id number] 20mg TAKE 1 TABLET BY MOUTH EVERY DAY IN THE MORNING [facility] aspirin 81 mg tablet,ruchi yed release 06-09 00:00: 00 Yes mg Delfino Orta albuterol sulfate HFA 90 mcg/actuati on aerosol inhaler 06-09 00:00: 00 Yes mcg/act uation Delfino Orta fluticasone propionate 50 mcg/actuati on nasal spray,suspe nsion 06-09 00:00: 00 Yes 2mcg/ac tuation Delfino Orta aspirin 81 mg chewable tablet 06-06 00:00: 00 Yes [id number] 81mg Take 1 tablet by mouth in the morning. [facility] ipratropium (ATROVENT) 0.02 % nebulizer solution 0.5 mg 06-05 03:44: 07 06-05 22:23 :07 No .5mg 0.5 mg, Inhalation , Q6HPRN, Starting on Sat06/04/24 at 2244, Until Sat06/05/24 at 1723, Routine, Wheezing, Shortness of Breath [facility] ramelteon (ROZEREM) tablet 8 mg ramelteon (ROZEREM) tablet 8 mg 06-05 01:21: 00 06-05 01:41 :00 No 8mg 8 mg, Oral, QHS, 1 dose, First dose on Sat06/04/24 at 2030, Routine [facility] furosemide 20 mg tablet 06-05 00:00: 06-20 00:00 :00 No [id number] 20mg Take 1 tablet by mouth in the morning. [facility] perflutren protein-A microsphr (OPTISON) injection 3 mL 06-04 20:15: 00 06-04 20:15 :00 No [id number] 3mL 3 mL, IV Push, ONCE, 1 dose, On Sat06/04/24 at 1515, Routine [facility] aspirin chewable tablet 81 mg aspirin chewable tablet 81 mg 06-04 14:00: 00 Yes 81mg 81 mg, Oral, DAILY, First dose on Sat06/04/24 at 0900, Until Discontinu ed, Routine [facility] fluticasone propionate 50 mcg/actuati on nasal spray 2 [place] fluticasone propionate 50 mcg/actuati on nasal spray 2 [place] 06-04 14:00: 06-05 22:23 :07 No 2{spray } 2 [place], Nasal, DAILY, First dose on Sat06/04/24 at 0900, Until Discontinu ed, Routine [facility] sulfamethox azole-trime thoprim (BACTRIM DS) 800-160 mg per tablet 1 tablet sulfamethox azole-trime thoprim (BACTRIM DS) 800-160 mg per tablet 1 tablet 06-04 14:00: 00 06-05 22:23 :07 No 1{tbl} 1 tablet, Oral, DAILY, First dose on Sat06/04/24 at 0900, Until Discontinu ed, ANTONIETTA, Reason for Anti-Infec tive: Empiric Non-Surgic al Prophylaxi s, Duration of therapy: As Defined in Treatment / Therapy Plan, Specific indication : PJP [facility] bictegrav-e mtricit-ten ofov ala (BIKTARVY) 50-200-25 mg tablet 1 tablet bictegrav-e mtricit-ten ofov ala (BIKTARVY) 50-200-25 mg tablet 1 tablet 06-04 14:00: 00 06-05 22:23 :07 No 1{tbl} 1 tablet, Oral, DAILY, First dose on Sat06/04/24 at 0900, Until Discontinu ed, Routine [facility] ipratropium -albuteroL (DUONEB) 0.5 mg-3 mg(2.5 mg base)/3 mL nebulizer solution 3 mL ipratropium -albuteroL (DUONEB) 0.5 mg-3 mg(2.5 mg base)/3 mL nebulizer solution 3 mL 06-04 13:00: 00 06-05 22:23 :07 No 3mL 3 mL, Inhalation , TID, First dose (after last modificati on) on Sat06/04/24 at 0800, Until Discontinu ed, Routine [facility] glucagon HCL injection 1 mg 06-04 07:35: 49 06-05 22:23 :07 No 1mg 1 mg, Intramuscu lar, PRN, Starting on Sat06/04/24 at 0235, Until Sat06/05/24 at 1723, ANTONIETTA, Low blood sugar, Blood Glucose < or = 70 mg/dL and patient is NPO, unable to swallow or has mental changes. [facility] dextrose 50 % in water (D50W) injection 25 mL 06-04 07:35: 49 06-05 22:23 :07 No 25mL 25 mL, Slow IV Push, PRN, Starting on Sat06/04/24 at 0235, Until Sat06/05/24 at 1723, ANTONIETTA, Blood Glucose < or = 70 mg/dL and patient is NPO, unable to swallow or has mental status changes. [facility] atorvast[facility] n (LIPITOR) tablet 40 mg atorvastati n (LIPITOR) tablet 40 mg 06-04 02:00: 00 06-05 22:23 :07 No 40mg 40 mg, Oral, QHS, First dose on Sat06/03/24 at 2100, Until Discontinu ed, Routine [facility] heparin (porcine) injection 5,000 Units [id number] 2201-0 4-24 01:00: 00 06-05 22:23 :07 No 5000U 5,000 Units, Subcutaneo us, Q12H, First dose on Sat06/03/24 at 1999, Until Discontinu ed, Routine [facility] ipratropium -albuteroL (DUONEB) 0.5 mg-3 mg(2.5 mg base)/3 mL nebulizer solution 3 mL ipratropium -albuteroL (DUONEB) 0.5 mg-3 mg(2.5 mg base)/3 mL nebulizer solution 3 mL 06-04 01:00: 00 06-04 08:55 :20 No 3mL 3 mL, Inhalation , Q4H, First dose on Sat06/03/24 at 1999, Until Discontinu ed, Routine [facility] magnesium sulfate in water 4 gram/50 mL (8 %) IV Piggyback 4 g magnesium sulfate in water 4 gram/50 mL (8 %) IV Piggyback 4 g 06-04 00:45: 00 06-04 02:51 :00 No 4g 4 g, IV Piggyback, at 25 mL/hr Administer over 120 Minutes, ONCE, 1 dose, On Sat06/03/24 at 1945, Routine [facility] nitroglycer in (NITROSTAT) sublingual tablet 0.4 mg 06-03 21:53: 10 06-05 22:23 :07 No .4mg [facility] acetaminoph en (TYLENOL) tablet 650 mg acetaminoph en (TYLENOL) tablet 650 mg 06-03 21:53: 10 06-05 22:23 :07 No 650mg 650 mg, Oral, Q6HPRN, Starting on Sat06/03/24 at 1653, Until Sat06/05/24 at 1723, Routine, Pain (scale 1-3) [facility] aspirin 81 mg tablet,ruchi yed release 06-01 00:00: 00 Yes mg Delfino Orta albuterol sulfate HFA 90 mcg/actuati on aerosol inhaler 06-01 00:00: 00 Yes mcg/act uation Delfino Orta aspirin 81 mg tablet,ruchi yed release 05-27 00:00: 00 Yes mg Delfino Orta albuterol [...] nsion 03-09 00:00: 00 Yes 2mcg/ac tuation Dlefino Orta amitriptyli ne 100 mg tablet 02-25 [...] 1mg Delfino Orta trazodone 50 mg tablet 1-14 00:00: 00 Yes 12mg Delfino Orta albuterol [...] Biktarvy 50 mg-200 mg-25 mg tablet 2023-02 1- 00:00: 00 Yes mg Delfino Orta albuterol sulfate HFA 90 mcg/actuati on aerosol inhaler 2023-02 1- 00:00: 00 Yes mcg/act uation Delfino Orta triamcinolo ne acetonide 0.1 % topical cream 2023-02 0-30 00:00: 00 Yes 1% Delfino Orta cetirizine 10 mg tablet 2023-02 0-17 00:00: 00 Yes 1mg Delfino Orta benzonatate 200 mg capsule 2023-02 0-17 00:00: 00 Yes 1mg Delfino Orta triamcinolo ne acetonide 0.1 % topical cream 2023-02 014 00:00: 00 Yes 1% Delfino Orta fluticasone [...] Delfino Orta baclofen 5 mg tablet 2023-02 0 00:00: 00 Yes 1mg Delfino Orta duloxetine [...] 00:00: 00 No 40mg [facility] baclofen 5 mg tablet 11-01 00:00: 00 Yes 1mg Delfino Orta ibuprofen 800 mg tablet 11-01 00:00: 00 Yes 1mg Delfino Orta duloxetine 30 mg capsule,del ayed release 0 9-21 00:00: 00 Yes 1mg Delfino Orta aspirin 81 mg tablet,ruchi yed release 9-04 00:00: 00 Yes mg Delfino Orta albuterol sulfate HFA 90 mcg/actuati on aerosol inhaler 0 10-10 00:00: 00 Yes mcg/act uation Delfino [...] 100 mg-hydrochl orothiazide 12.5 mg tablet 0 09-23 00:00: 00 Yes 1mg Delfino Orta amlodipine 10 mg tablet 09-23 00:00: 00 Yes 1mg Delfino Orta baclofen 5 mg tablet 0 8- 00:00: 00 Yes 1mg Delfino Orta trazodone 50 mg tablet 0 8- 00:00: 00 Yes 12mg Delfino Orta atorvastati n 40 mg tablet 0 8- 00:00: 00 Yes 1mg Delfino Orta albuterol sulfate HFA 90 mcg/actuati on aerosol inhaler 0 8-05 00:00: 00 Yes mcg/act uation Delfino Orta amlodipine 10 mg tablet 0 8- 00:00: 00 Yes 1mg Delfino Orta losartan 100 mg-hydrochl orothiazide 12.5 mg tablet 0 - 00:00: 00 Yes 1mg Delfino Orta baclofen 5 mg tablet 0 - 00:00: 00 Yes 1mg Delfino Orta atorvastati n 40 mg tablet 0 8- 00:00: 00 Yes 1mg Delfino Orta trazodone 50 mg tablet 0 09-15 00:00: 00 Yes 12mg Delfino Orta albuterol sulfate HFA 90 mcg/actuati on aerosol inhaler 0 - 00:00: 00 Yes mcg/act uation Delfino Orta amlodipine 10 mg tablet 0 09-09 00:00: 00 Yes 1mg Delfino Orta losartan 100 mg-hydrochl orothiazide 12.5 mg tablet 0 7 00:00: 00 Yes 1mg Delfino Orta baclofen 5 mg tablet 0 09-09 00:00: 00 Yes 1mg Delfino Orta trazodone 50 mg tablet 0 09-09 00:00: 00 Yes 12mg Delfino Orta atorvastati n 40 mg tablet 0 09-09 00:00: 00 Yes 1mg Delfino Orta buprenorphi ne 4 mg-naloxone 1 mg sublingual film 0 09-09 00:00: 00 Yes 1mg Delfino Orta losartan 100 mg-hydrochl orothiazide 12.5 mg tablet 0 09-01 00:00: 00 Yes 1mg Delfino Orta [...] tablet 06-03 00:00: 00 Yes 1mg Delfino Orat trazodone 50 mg tablet 06-03 00:00: 00 Yes 12mg Delfino Orta TAKE 1 CAPSULE DAILY WITH FOOD. 06-03 00:00: 00 Yes 400 Delfino Orta amlodipine 10 mg tablet 05-22 00:00: 00 Yes mg Delfino Orta aspirin 81 mg EC tablet 05-20 00:00: 00 06-20 04:59 :00 No [id number] 81mg Take 1 tablet by mouth in the morning for 30 days. [facility] predniSONE 20 mg tablet 05-20 00:00: 00 05-24 04:59 :00 No [id number] 40mg Take 2 tablets by mouth in the morning for 3 days. [facility] celecoxib 400 mg capsule 05-19 16:42: 32 Yes 400mg Take 1 capsule by mouth in the morning. [facility] ALPRAZOLAM ORAL 05-19 16:42: 32 06-03 00:00 :00 No Take by mouth. [facility] atorvastati n (LIPITOR) tablet 40 mg 05-19 02:00: 00 Yes 40mg 40 mg, Oral, QHS, First dose on 05/19/23 at 2100, Until Discontinu ed, Routine [facility] aspirin 81 mg tablet,ruchi yed release 05-19 00:00: 00 Yes mg Delfino Orta PREDNISONE 20MG 05-19 00:00: 00 Yes Delfino Orta budesonide 0.5 mg/2 mL nebulizer solution 05-19 00:00: 00 06-19 04:59 :00 No [id number] 1mg Inhale 4 mL every 12 (twelve) hours for 30 days. [facility] aspirin EC tablet 81 mg 05-18 20:45: 00 Yes 81mg 81 mg, Oral, DAILY, First dose on 05/19/23 at 1545, Until Discontinu ed, Routine [facility] predniSONE (DELTASONE) tablet 40 mg 05-18 14:00: 00 Yes 40mg 40 mg, Oral, DAILY, First dose on 05/19/23 at 0900, Until Discontinu ed, Routine [facility] methylpredn isolone sod succ (SOLU-MEDRO L) injection 125 mg 05-17 10:00: 00 05-17 14:54 :19 No 125mg 125 mg, Slow IV Push, Q6H ABX, First dose on 05/18/23 at 0500, Until Discontinu ed, Routine [facility] budesonide (PULMICORT RESPULE) nebulizer solution 1 mg 05-17 07:00: 00 Yes 1mg 1 mg, Inhalation , Q12H, First dose on 05/18/23 at 0200, Until Discontinu ed, Routine
[employer] member approving non-formul fanta medication : LEFTY ABREU
[place] son for non-formul fanta use: Treatment failure with formulary alternativ e [facility] sulfamethox azole-trime thoprim (BACTRIM DS) 800-160 mg per tablet 1 tablet 05-17 01:00: 00 Yes 1{tbl} 1 tablet, Oral, QMON/SAT/ RI AT 1999, First dose on Sat05/17/23 at 1999, Until Discontinu ed, Routine
Reason for Anti-Infec tive: Empiric Non-Surgic al Prophylaxi s
Durat ion of therapy: 5 days [facility] predniSONE 20 mg tablet 05-17 00:00: 00 05-21 04:59 :00 No [id number] 20mg Take 1 tablet by mouth in the morning for 3 days. [facility] NaCl 0.9% (NS) IV infusion 1,000 mL 05-16 21:00: 00 Yes 1000mL at 75 mL/hr, IV Infusion, CONTINUOUS , Starting on Sat05/17/23 at 1600, Until Discontinu ed, Routine [facility] magnesium sulfate in water 2 gram/50 mL (4 %) infusion 2 g 05-16 18:45: 00 05-16 19:50 :00 No 2g 2 g, IV Piggyback, Administer over 60 Minutes, ONCE, 1 dose, On Sat05/17/23 at 1345, Routine [facility] losartan (COZAAR) tablet 100 mg 05-16 14:00: 00 Yes 100mg 100 mg, Oral, DAILY, First dose on Sat05/17/23 at 0900, Until Discontinu ed, Routine [facility] fluconazole (DIFLUCAN) tablet 200 mg 05-16 14:00: 00 Yes 200mg 200 mg, Oral, DAILY, First dose on Sat05/17/23 at 0900, Until Discontinu ed, ANTONIETTA
Re ason for Anti-Infec tive: Empiric Non-Surgic al Prophylaxi s
Durat ion of therapy: 5 days [facility] bictegrav-e mtricit-ten ofov ala (BIKTARVY) 50-200-25 mg tablet 1 tablet 05-16 14:00: 00 Yes 1{tbl} 1 tablet, Oral, DAILY, First dose on Sat05/17/23 at 0900, Until Discontinu ed, Routine
Medicatio n Name: bictegrav/ emtricit/t onofov ala
[place] g[facility] of Therapy: Indefinite
Facult y member approving non-formul fanta medication : LEFTY ABREU
[place] son for non-formul fanta use: Patient supplied medication
Specif ic indication for non-formul fanta use: hiv
Use patient home supply? Yes
Dos age Form: Capsule [facility] predniSONE (DELTASONE) tablet 40 mg 05-16 14:00: 00 05-17 09:48 :38 No 40mg 40 mg, Oral, DAILY, 5 doses, First dose on Sat05/17/23 at 0900, Last dose on Sat05/21/23 at 0900, Routine [facility] metoprolol tartrate (LOPRESSOR) tablet 12.5 mg 05-16 13:00: 00 Yes 12.5mg 12.5 mg, Oral, BID, First dose on Sat05/17/23 at 0800, Until Discontinu ed, Routine [facility] fluticasone propionate (FLOVENT HFA) 220 mcg/actuati on inhaler 2 Puff 05-16 13:00: 00 Yes 2{puff} 2 Puff, Inhalation , Q12H, First dose on Sat05/17/23 at 0800, Until Discontinu ed, Routine
Is this order for a patient with suspected or confirmed COVID-19 infection? No [facility] cetirizine (ZYRTEC) tablet 10 mg 05-16 03:00: 00 Yes 10mg 10 mg, Oral, QHS, First dose on Sat05/16/23 at 2200, Until Discontinu ed [facility] amLODIPine (NORVASC) tablet 10 mg 05-16 03:00: 00 Yes 10mg 10 mg, Oral, DAILY, First dose on Sat05/16/23 at 2200, Until Discontinu ed, Routine [facility] heparin (porcine) injection 5,000 Units 05-16 03:00: 00 Yes 5000U 5,000 Units, Subcutaneo us, Q8H, First dose on Sat05/16/23 at 2200, Until Discontinu ed, Routine [facility] albuterol (VENTOLIN) inhaler 2 Puff 05-16 02:35: 18 Yes 2{puff} 2 Puff, Inhalation , Q6HPRN, Starting on Sat05/16/23 at 2135, Until Discontinu ed, Routine, Wheezing, Shortness of Breath [facility] ipratropium -albuteroL (DUONEB) 0.5 mg-3 mg(2.5 mg base)/3 mL nebulizer solution 3 mL 05-15 21:00: 00 05-15 18:01 :47 No 3mL 3 mL, Inhalation , QID, First dose on Sat05/16/23 at 1600, Until Discontinu ed, Routine [facility] azithromyci n (ZITHROMAX) 500 mg in NaCl [...] y
Durat ion of therapy: 72 hours [facility] magnesium sulfate in water 2 gram/50 mL (4 %) infusion 2 g 05-15 19:45: 00 05-15 19:54 :00 No 2g 2 g, IV Piggyback, Administer over 60 Minutes, ONCE, 1 dose, On Farrah 05/16/23 at 1445, Routine [facility] albuterol (PROVENTIL) 2.5 mg /3 mL (0.083 %) nebulizer solution 7.5 mg 05-15 19:45: 00 05-15 18:54 :00 No 7.5mg 7.5 mg, Inhalation , ONCE, 1 dose, On Farrah 05/16/23 at 1445, [place] acetaminoph en (TYLENOL) tablet 650 mg 05-15 19:30: 37 Yes 650mg 650 mg, Oral, Q6HPRN, Starting on Farrah 05/16/23 at 1430, Until Discontinu ed, Routine, Pain (scale 1-3) [facility] NaCl 0.9% (NS) bolus infusion 1,000 mL 05-15 18:30: 00 05-15 19:34 :00 No 1000mL at 999 mL/hr, 1,000 mL, IV Infusion, ONCE, 1 dose, On Farrah 05/16/23 at 1330, [place] [facility] budesonide (PULMICORT RESPULE) nebulizer solution 1 mg 05-15 18:15: 00 05-15 17:40 :00 No 1mg 1 mg, Inhalation , ONCE, 1 dose, On Farrah 05/16/23 at 1315, Routine [facility] albuterol (PROVENTIL) 2.5 mg /3 mL (0.083 %) nebulizer solution 5 mg 05-15 18:00: 00 05-15 18:03 :00 No 5mg 5 mg, Inhalation , ONCE, 1 dose, On Farrah 05/16/23 at 1315, STAT [facility] methylpredn isolone sod succ (SOLU-MEDRO L) injection 125 mg 05-15 17:31: 00 05-15 17:41 :00 No 125mg 125 mg, Intravenou s, ONCE, 1 dose, On Farrah 05/16/23 at 1245, [place] [facility] sodium chloride (NS) injection 5 mL 05-15 17:25: 52 Yes 5mL 5 mL, Intravenou s, PRN, Starting on Sat05/16/23 at 1225, Until Discontinu ed, Routine, IV line flushing [facility] IBUPROFEN 600MG 05-12 00:00: 00 [...] TAKE 1 TO 2 TABLETS AT BEDTIME 2-22 00:00: 00 Yes 50 Delfino Orta TAKE [...] 04-02 00:00: 00 06-25 00:00 :00 No [id number] Delfino Orta TAKE 1 TABLET DAILY. 04-02 00:00: 00 06-25 00:00 :00 No 20 Delfino Orta naproxen (NAPROSYN) tablet 250 mg 03-20 23:00: 00 Yes 250mg 250 mg, Oral, BID MEALS, First dose on Sat03/20/23 at 1700, Until Discontinu ed, Routine [facility] albuterol sulfate HFA 90 mcg/actuati on aerosol inhaler 03-20 00:00: 00 Yes mcg/act uation Delfino Orta TAKE 1 TABLET BY MOUTH TWICE DAILY FOR 20 DOSES TAKE IN THE MORNINGS AND THE EVENINGS 03-20 00:00: 00 Yes Delfino Orta hydrocortis one 1%-nystatin -zinc oxide Oint ointment 03-20 00:00: 00 Yes [id number] Apply to affected area(s) as needed for Dermatitis /Rash. [facility] albuterol 90 mcg/actuati on inhaler 03-20 00:00: 00 Yes [id number] 2{puff} Inhale 2 Puffs every 6 (six) hours as needed for Wheezing or Shortness of Breath. [facility] naproxen 250 mg tablet 03-20 00:00: 00 03-31 05:59 :00 No [id number] 250mg Take 1 tablet by mouth in the morning and 1 tablet in the evening. Take with meals. Do all this for 20 doses. [facility] Qvar RediHaler 80 mcg/actuati on HFA breath activated aerosol 03-07 00:00: 00 Yes mcg/act uation Delfino Orta TAKE 1 TABLET DAILY. 03-07 00:00: 00 Yes 10 Delfino Orta TAKE 1 TABLET DAILY. 03-07 00:00: 00 Yes [id number] Delfino Orta TAKE 1 TABLET BY MOUTH [...] 00 Yes Delfino Orta AMLODIPINE 10MG 2022-02 0-30 00:00: 00 Yes Delfino Orta LOSARTAN/HC T 100-12.5 2022-02 0-30 00:00: 00 Yes Delfino Orta sulfamethox azole 800 mg-trimetho prim 160 mg tablet 11-01 00:00: 00 Yes mg Delfino Orta INHALE 1 TO 2 PUFFS BY MOUTH EVERY 6 HOURS NEEDED. 11-01 00:00: 00 06-25 00:00 :00 No [id number] Delfino Orta TAKE 1 TO 2 TABLETS [...] mcg/actuati on inhaler 09-17 00:00: 00 Yes [id number] 2{puff} Inhale 2 Puffs every 4 (four) hours as needed for Wheezing or Shortness of Breath. [facility] ibuprofen 600 mg tablet 09-17 00:00: 00 06-03 00:00 :00 No [id number] 600mg Take 1 tablet by mouth every 6 (six) hours as needed for Pain (scale 4-6). [facility] IBUPROFEN 600MG 09-17 00:00: 00 06-25 00:00 :00 No Delfino Orta TAKE 1 TABLET DAILY. 09-12 00:00: 00 06-25 00:00 :00 No [id number] Delfino Orta TAKE 1 TABLET DAILY. 09-12 [...] 09-12 00:00: 00 06-25 00:00 :00 No [id number] Delfino Orta INHALE 2 PUFFS TWICE DAILY. RINSE MOUTH AFTER USE. 09-12 00:00: 00 06-25 00:00 :00 No 220 Delfino Orta TAKE 1 TO 2 TABLETS AT BEDTIME 09-12 00:00: 00 06-25 00:00 :00 No 25 Delfino Endy Orta ALBUTEROL PA HFA 200 INH 09-06 00:00: 00 Yes Delfino Orta TAKE 1 TABLET DAILY. 08-02 00:00: 00 06-25 00:00 :00 No 75 Delfinosurinder Orta TAKE 1 TO 2 TABLETS AT BEDTIME 08-01 00:00: 00 06-25 00:00 :00 No 25 Delfino Orta 1-2 PUFFS Q 12 HOURS -25 00:00: 00 06-25 00:00 :00 No 80 Delfino Orta INHALE 1 TO 2 PUFFS BY MOUTH EVERY 6 HOURS NEEDED. 07-04 00:00: 00 06-25 00:00 :00 No [id number] Delfino Orta TAKE 1 TABLET DAILY. 07-04 [...] 07-04 00:00: 00 06-25 00:00 :00 No [id number] Delfino Orta TAKE 1 TABLET DAILY. 07-04 00:00: 00 06-25 00:00 :00 No 20 Delfino Orta TAKE 1 TABLET EVERY 8 HOURS WITH FOOD NEEDED. 07-04 00:00: 00 06-25 00:00 :00 No 800 Delfino Orta TAKE 1 TABLET BY MOUTH DAILY 06-27 00:00: 00 06-25 00:00 :00 No 40 Delfino Orta ALBUTEROL PA HFA 200 INH -04 00:00: 00 06-25 00:00 :00 No Delfino Orta NITROFUR MON 100MG 4-04 00:00: 00 06-25 00:00 :00 No Delfino Orta TAKE 1 TABLET DAILY. -09 00:00: 00 06-25 00:00 :00 No [id number] Delfino Orta TAKE 1 TABLET DAILY. 3-09 00:00: 00 06-25 00:00 :00 No 20 Delfino Orta AMLODIPINE BESYLATE 10 MG TABS 04-19 00:00: 00 06-25 00:00 :00 No Delfino Schumacher You IBUPROFEN 600 MG TABS 04-19 00:00: 00 06-25 00:00 :00 No Delfino Endy Orta CHLORHEXIDI NE GLUCONATE 0.12 % SOLN 04-11 00:00: 00 06-25 00:00 :00 No Delfino Orta bictegrav-e mtricit-ten ofov ala 50-200-25 mg tablet 04-03 00:00: 00 Yes [id number] 1{tbl} Take 1 tablet by mouth in the morning. [facility] sulfamethox azole-trime thoprim 800-160 mg per tablet 04-03 00:00: 00 Yes [id number] 1{tbl} Take 1 tablet by mouth in the morning. [facility] fluconazole 200 mg tablet 04-03 00:00: 00 06-03 00:00 :00 No [id number] 200mg Take 1 tablet by mouth in the morning. [facility] sulfamethox azole 800 mg-trimetho prim [...] 03-30 00:00: 00 06-25 00:00 :00 No [id number] Delfino Orta atorvastati n 40 mg tablet 2023-0 2-17 00:00: 00 06-25 00:00 :00 Eva Orta amlodipine 10 mg tablet -16 00:00: [...] SPR 03-08 00:00: 00 06-25 00:00 :00 Eva Orta MELOXICAM 7.5MG 03-08 00:00: 00 06-25 00:00 :00 Eva Orta CHLORHEX GLU 0.12% ESTRELLA 03-08 00:00: 00 06-25 00:00 :00 Eva Orta INHALE 1 TO 2 PUFFS BY MOUTH EVERY 6 HOURS NEEDED. 24 00:00: 00 06-25 00:00 :00 No [id number] Delfino Orta APPLY OINTMENT 3 TO 4 TIMES PER DAY TO AFFECTED AREA FOR 14 DAYS - 00:00: 00 No 20 APPLY OINTMENT 3 TO 4 TIMES PER DAY TO AFFECTED AREA FOR 14 DAYS -18 00:00: 00 06-25 00:00 :00 No 20 Delfino Orta TAKE 1 CAPSULE BY MOUTH EVERY 8 HOURS NEEDED FOR COUGH -03 00:00: 00 No 100 TAKE 1 CAPSULE BY MOUTH EVERY 8 HOURS NEEDED FOR COUGH - 00:00: 00 06-25 00:00 :00 No [...] Dose Unknown 2021-02 00:00: 00 No NYSTATIN [id number] ROOPA 2021-02 00:00: 00 No CITALOPRAM HYDROBROMID E 20MG TAB 2021-02 00:00: 00 No TAKE 1 TABLET DAILY. 2021-02 00:00: 00 06-25 00:00 :00 Eva Otra TAKE 1 TABLET AT BEDTIME. 2021-02 00:00: [...] TWICE A DAY FOR 7 DAYS 2021-02 2- 00:00: 00 06-25 00:00 :00 No Delfino F You TAKE 1 TABLET 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 2021-02 2-14 00:00: 00 06-25 00:00 :00 No Delfino F You Dose Unknown 2021-02 2-14 00:00: 00 06-25 00:00 :00 No Delfino F You Dose Unknown 2021-02 2-14 00:00: 00 06-25 00:00 :00 No Delfino F You Dose Unknown 2021-02 2-14 00:00: 00 06-25 00:00 :00 No Delfino F You MIRTAZAPINE 15MG TAB 2021-02 2-14 00:00: 00 06-25 00:00 [...] 06-25 00:00 :00 No Delfino Endy Orta NYSTATIN [id number] ROOPA 2021-02 2 00:00: 00 06-25 00:00 :00 No Delfino Endy You CITALOPRAM HYDROBROMID E 20MG TAB 2021-02 2 00:00: 00 06-25 00:00 :00 No Delfino Orta Dose Unknown 2021-02 2 00:00: 00 06-25 00:00 :00 No Delfino Orta TAKE 1 TABLET AT BEDTIME NEEDED. 2021-02 2 00:00: 00 No 50unit FLUTICASONE PROPIONATE 50 MCG/ACT SUSP 2021-02 00:00: 00 No 50 TAKE 1 TABLET BID NEEDED 2021-02 00:00: 00 No 600 ALBUTEROL SULFATE HFA 108 (90 Base) MCG/ACT AERS 2021-02 00:00: 00 No TAKE 1 TABLET AT BEDTIME NEEDED. 2021-02 00:00: 00 06-25 00:00 :00 No 50unit Delfino Endy Orta FLUTICASONE PROPIONATE 50 MCG/ACT SUSP 2021-02 00:00: 00 06-25 00:00 :00 No Delfino Orta TAKE 1 TABLET BID NEEDED 2021-02 00:00: 00 06-25 00:00 :00 No 600 Delfino Endy Orta ALBUTEROL SULFATE HFA 108 (90 Base) MCG/ACT AERS 2021-02 00:00: 00 06-25 00:00 :00 No Delfino Endy You TAKE 1 TABLET DAILY. 11-06 00:00: 00 06-25 00:00 :00 No 10 Delfino Orta ALLOPURINOL 100 MG TABS - 00:00: 00 06-25 00:00 :00 No Delfino Orta AMLODIPINE BESYLATE 10MG TAB 0 8-18 00:00: 00 No AMLODIPINE BESYLATE 10MG TAB 0 8-18 00:00: 00 No AMLODIPINE BESYLATE 10MG TAB 8-18 00:00: 00 No AMLODIPINE BESYLATE 10MG TAB 2021-0 818 00:00: 00 Yes Delfino Orta TAKE BY [...] TIMES A DAY FOR 14 DAYS 0 - 00:00: 00 No Dose Unknown 0 08-30 00:00: 00 No TAKE BY MOUTH 6 MILLILITERS 4 TIMES A DAY FOR 14 DAYS 0 - 00:00: 00 Yes Delfino Orta FLUTICASONE PROPIONATE [...] 00 No 1mg amlodipine 10 mg tablet -27 00:00: 00 No 1mg Dose Unknown 0 [...] tablet 08-07 00:00: 00 Yes 1mg Delfino Endy You amlodipine 10 mg tablet 08-07 00:00: 00 Yes 1mg Delfino Endy You allopurinol 100 mg tablet 08-07 00:00: 00 [...] Orta Dose Unknown 0 08-07 00:00: 00 06-25 00:00 :00 No 400 Delfino Schumacher You &lt 2021-0 08-04 00:00: 00 No &lt [...] 2021-0 07-28 00:00: 00 No &lt 2022-0 6 00:00: 00 No &lt 2022-0 6 00:00: 00 No &lt 2022-0 617 00:00: 00 No &lt 2022-0 617 00:00: 00 No &lt 2022-0 617 00:00: 00 No &lt 2022-0 617 00:00: 00 Yes Delfino Orta &lt 2022-0 07-28 00:00: 00 Yes Delfino Orta imiquimod 3.75 % topical cream in a pump [id number] 00:00: 00 No 1% fluconazole 150 mg [...] 07-03 00:00: 00 06-25 00:00 :00 No [id number] Delfino Orta sulfamethox azole-trime thoprim 800-160 mg per tablet 06-15 00:00: 00 04-03 00:00 :00 No [id number] 1{tbl} Take 1 tablet by mouth daily. [facility] ALPRAZOLAM ORAL 06-14 17:22: 53 Yes Take by mouth. [facility] metoprolol tartrate 25 mg tablet 06-14 00:00: 00 Yes [id number] 12.5mg Take 0.5 tablets by mouth 2 (two) times daily. [facility] efavirenz 600 mg tablet 06-14 00:00: 00 06-03 00:00 :00 No [id number] 600mg Take 1 tablet by mouth daily. [facility] nystatin 100,000 unit/mL suspension 06-14 00:00: 00 06-03 00:00 :00 No [id number] Take 5 mL by mouth 4 (four) times daily. [facility] amoxicillin -clavulanat e 875-125 mg per tablet 06-14 00:00: 00 04-03 00:00 :00 No [id number] 1{tbl} Take 1 tablet by mouth every 12 (twelve) hours. [facility] lamiVUDine 150 mg tablet 06-14 00:00: 00 04-03 00:00 :00 No [id number] 150mg Take 1 tablet by mouth 2 (two) times daily. [facility] ProAir HFA 90 mcg/actuati on [...] Unknown 4- 00:00: 00 No Dose Unknown 4- 00:00: 00 No Dose Unknown 4- 00:00: 00 No Dose Unknown - 00:00: 00 No Dose Unknown - 00:00: 00 No fluticasone propionate 50 mcg/actuati [...] mcg/actuati on aerosol inhaler 4- 00:00: 00 Yes 2mcg/ac tuation Delfino Orta [...] 05-03 00:00: 00 No Dose Unknown 0 05-03 00:00: 00 No Dose Unknown 0 05-03 00:00: 00 No Dose Unknown 0 05-03 00:00: 00 No Dose Unknown 0 05-03 00:00: 00 No Dose Unknown 0 3 00:00: 00 No Dose Unknown 0 3 00:00: 00 No Dose Unknown 0 3 00:00: 00 No Dose Unknown 0 3 00:00: 00 No Dose Unknown 0 3 00:00: 00 Yes Delfino Orta Dose Unknown 3 00:00: 00 Yes Delfino Orta Dose Unknown 2022-0 3-23 00:00: 00 Yes Delfino Orta FLOVENT HFA 220MCG/A INH 2022-0 3-23 00:00: 00 2024- 05-15 00:00 :00 No [id number] Delfino Orta Dose Unknown 2022-0 3-21 00:00: [...] Dose Unknown 03-08 00:00: 00 Yes Delfino Endy You fluticasone propionate 50 mcg/actuati on nasal spray,suspe nsion 03-08 00:00: 00 Yes 1mcg/ac tuation Delfino Orta sulfamethox azole 800 mg-trimetho prim 160 mg tablet 2020-02 2 00:00: 00 No 1mg sulfamethox azole 800 [...] 2 00:00: 00 Yes Delfino Endy You Dose Unknown 2020-02 2 00:00: 00 No Dose Unknown 2020-02 2 00:00: 00 No ibuprofen 600 mg tablet 2020-02 2 00:00: 00 No 1mg tizanidine 4 mg tablet 2020-02 2- 00:00: 00 No 1mg fluticasone propionate 50 mcg/actuati on nasal spray,suspe nsion 2020-02 2- 00:00: 00 No 1mcg/ac tuation Dose Unknown 2020-02 2- 00:00: 00 No Dose Unknown 2020-02 2- 00:00: 00 No tizanidine 4 mg tablet 2020-02 2- 00:00: 00 No 1mg Dose Unknown 2020-02 2- 00:00: 00 No fluticasone propionate 50 mcg/actuati on nasal spray,suspe nsion 2020-02 2- 00:00: 00 No 1mcg/ac tuation Dose Unknown 2020-02 2- 00:00: 00 No Dose Unknown 2020-02 00:00: [...] 100 mg tablet 09-30 00:00: 00 Yes [id number] 100mg Take 1 tablet by mouth daily. [facility] Flovent HFA 220 mcg/actuati on [...] 09-17 00:00: 00 Yes 1mcg/ac tuation Delfino F You losartan 100 mg tablet 09-17 00:00: 00 [...] ferrous sulfate 325 mg (65 mg iron) tablet,rucih yed release 08-25 00:00: 00 No 1(65 [...] 10 mg tablet 08-12 00:00: 00 Yes [id number] 10mg Take 1 tablet by mouth daily. [facility] atorvastati n 40 mg tablet 08-12 00:00: 00 Yes [id number] 40mg Take 1 tablet by mouth at bedtime. [facility] fluticasone propionate 50 mcg/actuati on nasal spray 07-20 00:00: 00 Yes [id number] 2{spray } Use 2 Sprays in each nostril daily. [facility] fluticasone propionate (FLOVENT HFA) 220 mcg/actuati on inhaler 07-20 00:00: 00 Yes [id number] 2{puff} Inhale 2 Puffs every 12 (twelve) hours. [facility] albuterol 90 mcg/actuati on inhaler 07-20 00:00: 00 03-20 00:00 :00 No [id number] 2{puff} Inhale 2 Puffs every 4 (four) hours as needed for Wheezing or Shortness of Breath. [facility] ibuprofen 800 mg tablet 07-19 [...] 07-01 00:00: 00 06-03 00:00 :00 No [id number] 600mg Take 1 tablet by mouth every 6 (six) hours as needed for Pain (scale 4-6). [facility] Flovent HFA 220 mcg/actuati on [...] 50 mcg/actuati on nasal spray,suspe nsion 2021-0 5-07 00:00: 00 Yes 1mcg/ac tuation Delfinosurinder Orta Voltaren 1 % topical gel 0 3-12 00:00: 00 No 1% mirtazapine 45 mg tablet 0 3-12 00:00: 00 No 1mg Tessalon Perles 100 mg capsule 0 3-12 00:00: 00 No 12mg Voltaren 1 % topical gel 2020-0 3-12 00:00: 00 No 1% mirtazapine 45 [...] nasal spray,suspe nsion 0 1-19 00:00: 00 Yes 1mcg/ac tuation Delfino Endy Orta Flovent HFA 220 mcg/actuati on aerosol inhaler 2019-1 2-17 00:00: 00 No 2mcg/ac tuation ProAir HFA [...] 09-23 00:00: 00 Yes 1mcg/ac tuation Delfino Endy You nystatin-tr iamcinolone 100,000 unit/g-0.1 % topical cream 09-23 00:00: 00 Yes 1unit/g -% Delfino Orta amlodipine 10 mg tablet 09-23 00:00: 00 Yes 1mg Delfino Schumacher You ibuprofen 800 mg tablet 09-23 00:00: 00 [...] Delfino Orta losartan 100 mg tablet 0 06-23 00:00: 00 Yes 1mg Delfino Orta allopurinol 100 mg tablet 0 06-23 00:00: 00 Yes 1mg Delfino Orta Epzicom 600 mg-300 mg tablet 0 06-23 00:00: 00 Yes 1mg Delfino Orta loratadine 10 mg tablet 0 06-23 00:00: 00 Yes 1mg Delfino Orta ibuprofen 800 mg tablet 0 06-23 00:00: 00 Yes 1mg Delfino Orta amlodipine 10 mg tablet 06-23 00:00: 00 Yes 1mg Delfino Orta mirtazapine 45 mg tablet 06-23 00:00: 00 Yes 1mg Delfino Orta hydroxyzine pamoate 50 mg capsule 06-23 00:00: 00 Yes 1mg Delfino Orta ibuprofen 800 mg tablet 0 05-20 00:00: 00 No 1mg ibuprofen 800 mg tablet 0 05-20 00:00: 00 No 1mg ibuprofen 800 mg tablet 0 05-20 00:00: 00 No 1mg ibuprofen 800 mg tablet 0 05-20 00:00: 00 Yes 1mg Delfino Orta Flovent HFA 220 mcg/actuati on aerosol inhaler 0 05-04 00:00: 00 No 2mcg/ac tuation ProAir HFA 90 mcg/actuati on aerosol inhaler 05-04 00:00: 00 No 1mcg/ac tuation Epzicom 600 mg-300 mg tablet 0 05-04 00:00: 00 No 1mg citalopram 20 mg tablet 0 05-04 00:00: 00 No 1mg montelukast 10 mg tablet 05-04 00:00: 00 No 1mg atorvastati n 40 mg tablet 05-04 00:00: 00 No 1mg losartan 100 mg tablet 05-04 00:00: 00 No 1mg amlodipine 10 mg tablet 05-04 00:00: 00 No 1mg allopurinol 100 mg tablet 0 05-04 00:00: 00 No 1mg loratadine 10 mg tablet 0 05-04 00:00: 00 No 1mg mirtazapine 45 [...] 1mg Delfino Orta allopurinol 100 mg tablet 324 00:00: 00 Yes 1mg Delfino Orta loratadine 10 mg tablet 24 00:00: 00 Yes 1mg Delfino Orta mirtazapine 45 mg tablet 324 00:00: 00 Yes 1mg Delfino Orta ferrous sulfate 325 mg (65 mg iron) tablet,ruchi yed release 24 00:00: 00 Yes 1(65 mg iron) Delfino Orta fluticasone propionate 50 mcg/actuati on nasal spray,suspe nsion 24 00:00: 00 Yes 1mcg/ac tuation Delfino Orta hydroxyzine pamoate 50 mg capsule 24 00:00: 00 Yes 1mg Delfino Orta metronidazo le 500 mg tablet 2- 00:00: 00 No 1mg metronidazo le 500 mg tablet 2- 00:00: 00 No 1mg metronidazo le 500 mg tablet 2- 00:00: 00 No 1mg metronidazo le 500 mg tablet 2- 00:00: 00 Yes 1mg Delfino Orta fluconazole 150 mg tablet 2-18 00:00: 00 No 1mg fluconazole 150 mg tablet 2-18 00:00: 00 No 1mg fluconazole 150 mg tablet 218 00:00: 00 No 1mg fluconazole 150 mg tablet 218 00:00: 00 Yes 1mg Delfino Orta Flovent HFA 220 mcg/actuati on aerosol inhaler 2-11 00:00: 00 No 2mcg/ac tuation Flovent HFA 220 mcg/actuati on aerosol inhaler 2-11 00:00: 00 No 2mcg/ac tuation ProAir HFA 90 mcg/actuati on aerosol inhaler 2-11 00:00: 00 No 1mcg/ac tuation Epzicom 600 mg-300 mg tablet 2-11 00:00: 00 No 1mg ProAir HFA 90 mcg/actuati on aerosol inhaler 2-11 00:00: 00 No 1mcg/ac tuation Epzicom [...] 00 No 1mg citalopram 20 mg tablet 0 1-08 00:00: 00 No 1mg montelukast 10 mg tablet 0 1-08 00:00: 00 No 1mg mirtazapine 30 mg [...] Bactrim DS 800 mg-160 mg tablet 2018-02 00:00: 00 No 1mg Bactrim DS 800 mg-160 mg tablet 2018-0221 00:00: 00 No 1mg Bactrim DS 800 mg-160 mg tablet 2018-0221 00:00: 00 Yes 1mg Delfino Orta Flovent [...] 2018-0216 00:00: 00 Yes 2mcg/ac tuation Delfino Endy You ProAir HFA 90 mcg/actuati on aerosol inhaler 2018-02 016 00:00: 00 Yes 1mcg/ac tuation Delfino Endy You allopurinol 100 mg tablet 2018-02 00:00: 00 Yes 1mg Delfino Orta amlodipine 10 mg tablet 2018-02 00:00: 00 Yes 1mg Delfino Orta mirtazapine 30 mg tablet 2018-02 00:00: 00 Yes 1mg Delfino Orta loratadine [...] 0.12 % mouthwash 2018-02 00:00: 00 Yes [id number] 15mL Swish and spit out 15 mL 2 (two) times daily. [facility] chlorhexidi ne (PERIDEX) 0.12 % mouthwash 2018-02 00:00: 00 Yes [id number] 15mL Swish and spit out 15 mL 2 (two) times daily. [facility] allopurinol 100 mg tablet 11-03 [...] capsule 05-01 00:00: 00 Yes 1mg Delfino F You amlodipine 10 mg tablet 04-22 00:00: 00 No 1mg amlodipine 10 mg tablet 04-22 00:00: 00 No 1mg amlodipine 10 mg tablet 04-22 00:00: 00 No 1mg amlodipine 10 mg tablet 04-22 00:00: 00 Yes 1mg Delfino Orta Flovent HFA 220 mcg/actuati on aerosol inhaler 2018-1 0-03 00:00: 00 No 2mcg/ac tuation ProAir [...] 0-03 00:00: 00 Yes 2mcg/ac tuation Delfino F You ProAir HFA 90 mcg/actuati on aerosol inhaler 2017-02 0-03 00:00: 00 Yes 1mcg/ac tuation Delfino F You citalopram 20 mg tablet 2017-02 0-03 00:00: 00 Yes 1mg Delfino Orta Keflex 500 mg capsule 2017-02 0-03 00:00: 00 Yes 1mg Delfino Endy You nystatin 100,000 unit/mL oral suspension 2017-02 00:00: [...] 09-10 00:00: 00 Yes 1mcg/ac tuation Delfino F You zolpidem 10 mg tablet 09-10 00:00: 00 Yes 1mg Delfino F You citalopram 20 mg tablet 09-10 00:00: 00 [...] tablet 2016-02 00:00: 00 Yes 1mg Delfino Jay DM 10 mg-100 mg/5 mL syrup 2016-02 [...] 06-04 00:00: 00 Yes 1mcg/ac tuation Delfino F You citalopram 20 mg tablet 06-04 00:00: 00 Yes 1mg Delfino Orta amitriptyli ne 100 mg tablet 06-04 00:00: 00 Yes 12mg Delfino Orta azithromyci n 250 mg tablet 06-04 00:00: 00 Yes 1mg Delfino Orta Cetirizine (ZYRTEC) 10 mg capsule 2014-02- 00:00: 00 Yes 10mg Take 1 Cap by mouth at bedtime. [facility] Flovent HFA 220 MCG/ACT Flovent HFA 220 [...] Orta Influenza Virus Vaccine 2023-07-02 00:00:00 Completed [facility] TDAP 2023-07-02 00:00:00 Completed [facility] Evusheld (Cilgavimab) 2023-07-02 00:00:00 Completed [facility] Evusheld (Tixagevimab) 2023-07-02 00:00:00 Completed [facility] Influenza Virus Vaccine 2023-05-21 00:00:00 Completed [facility] TDAP 2023-05-21 00:00:00 Completed [facility] Evusheld (Cilgavimab) 2023-05-21 00:00:00 Completed [facility] Evusheld (Tixagevimab) 2023-05-21 00:00:00 Completed [facility] Influenza Virus Vaccine 2023-05-16 12:13:00 Completed [facility] TDAP 2023-05-16 12:13:00 Completed [facility] Evusheld (Cilgavimab) 2023-05-16 12:13:00 Completed [facility] Evusheld (Tixagevimab) 2023-05-16 12:13:00 Completed [facility] Influenza Virus Vaccine 2023-03-20 10:44:00 Completed [facility] TDAP 2023-03-20 10:44:00 Completed [facility] Evusheld (Cilgavimab) 2023-03-20 10:44:00 Completed [facility] Evusheld (Tixagevimab) 2023-03-20 10:44:00 Completed [facility] Hep A-Hep B Hep A-Hep B 2022-09-24 00:00:00 Completed Delfino Orta influenza, injectable influenza, injectable 2022-09-24 00:00:00 Completed Delfino Orta SHINGRIX VACCINE SHINGRIX VACCINE 2022-09-24 00:00:00 Completed Delfino Orta Hep A-Hep B Hep A-Hep B 2022-09-24 00:00:00 Completed Delfino Orta influenza, injectable influenza, injectable 2022-09-24 00:00:00 Completed eDlfino Orta SHINGRIX VACCINE SHINGRIX VACCINE 2022-09-24 00:00:00 Completed Delfino Orta Evusheld (Cilgavimab) 2021-06-13 00:00:00 Completed [facility] Evusheld (Tixagevimab) 2021-06-13 00:00:00 Completed [facility] Evusheld (Cilgavimab) 2021-06-13 00:00:00 Completed [facility] Evusheld (Tixagevimab) 2021-06-13 00:00:00 Completed [facility] Evusheld (Cilgavimab) 2021-06-13 00:00:00 Completed [facility] Evusheld (Tixagevimab) 2021-06-13 00:00:00 Completed [facility] Evusheld (Cilgavimab) 2021-06-13 00:00:00 Completed [facility] Evusheld (Tixagevimab) 2021-06-13 00:00:00 Completed [facility] Ev[facility]held (Cilgavimab) 2021-06-13 00:00:00 Completed [facility] (Tixagevimab) 2021-06-13 00:00:00 Completed [facility] (Cilgavimab) 2021-06-13 00:00:00 Completed [facility] (Tixagevimab) 2021-06-13 00:00:00 Completed [facility] (Cilgavimab) 2021-06-13 00:00:00 Completed [facility] (Tixagevimab) 2021-06-13 00:00:00 Completed [facility] (Cilgavimab) 2021-06-13 00:00:00 Completed [facility] (Tixagevimab) 2021-06-13 00:00:00 Completed [facility] (Cilgavimab) 2021-06-13 00:00:00 Completed [facility] (Tixagevimab) 2021-06-13 00:00:00 Completed [facility] (Cilgavimab) 2021-06-13 00:00:00 Completed [facility] (Tixagevimab) 2021-06-13 00:00:00 Completed [facility] (Cilgavimab) 2021-06-13 00:00:00 Completed [facility] (Tixagevimab) 2021-06-13 00:00:00 Completed Moderna COVID-19 [...] Completed Delfino Orta TDAP 2014-08-19 00:00:00 Completed [facility] TDAP 2014-08-19 00:00:00 Completed [facility] TDAP 2014-08-19 00:00:00 Completed [facility] TDAP 2014-08-19 00:00:00 Completed [facility] TDAP 2014-08-19 00:00:00 Completed [facility] TDAP 2014-08-19 00:00:00 Completed [facility] TDAP 2014-08-19 00:00:00 Completed [facility] TDAP 2014-08-19 00:00:00 Completed [facility] TDAP 2014-08-19 00:00:00 Completed [facility] TDAP 2014-08-19 00:00:00 Completed [facility] TDAP 2014-08-19 00:00:00 Completed [facility] Influenza Virus Vaccine 2012-01-21 00:00:00 Completed [facility] Influenza Virus Vaccine 2012-01-21 00:00:00 Completed [facility] Influenza Virus Vaccine 2012-01-21 00:00:00 Completed [facility] Influenza Virus Vaccine 2012-01-21 00:00:00 Completed [facility] Influenza Virus Vaccine 2012-01-21 00:00:00 Completed [facility] Influenza Virus Vaccine 2012-01-21 00:00:00 Completed [facility] Influenza Virus Vaccine 2012-01-21 00:00:00 Completed [facility] Influenza Virus Vaccine 2012-01-21 00:00:00 Completed [facility] Influenza Virus Vaccine 2012-01-21 00:00:00 Completed [facility] Influenza Virus Vaccine 2012-01-21 00:00:00 Completed [facility] Influenza Virus Vaccine 2012-01-21 00:00:00 Completed [facility] Vital Signs Vital Name Observation Time Observation Value Comments S ource Systolic blood pressure 2024-06-05 20:04:00 125 mm[Hg] [facility] Diastolic blood pressure 2024-06-05 20:04:00 67 mm[Hg] [facility] Heart rate 2024-06-05 20:04:00 83 /min [facility] Body temperature 2024-06-05 20:04:00 36.11 [facility] Respiratory rate 2024-06-05 20:04:00 18 /min [facility] Oxygen saturation in Arterial blood by Pulse oximetry 2024-06-05 20:04:00 100 /min [facility] Body height 2024-06-04 01:00:00 160 cm [facility] Body weight 2024-06-03 21:26:00 57.1 kg [facility] BMI 2024-06-03 21:26:00 22.30 kg/m2 [facility] height 2023-11-11 15:00:00 62.5 [in_i] Comm on [facility] weight 2023-11-11 15:00:00 118.2 [lb_av] Co mmon [facility] temperature 2023-11-11 15:00:00 97.8 [degF] Com mon [facility] bmi 2023-11-11 15:00:00 21.27 kg/m2 Comm on [facility] oximetry 2023-11-11 15:00:00 93 % Commo n [facility] respiratory rate 2023-11-11 15:00:00 18 /min Common [facility] blood pressure systolic 2023-11-11 15:00:00 114 mm[Hg] Common [facility] blood pressure diastolic 2023-11-11 15:00:00 68 mm[Hg] Common [facility] Respiratory rate 2023-05-20 20:47:00 16 /min [facility] Oxygen saturation in Arterial blood by Pulse oximetry 2023-05-20 20:47:00 97 /min [facility] Systolic blood pressure 2023-05-20 16:21:00 136 mm[Hg] [facility] Diastolic blood pressure 2023-05-20 16:21:00 81 mm[Hg] [facility] Heart rate 2023-05-20 16:21:00 81 /min [facility] Body temperature 2023-05-20 16:21:00 36.17 [facility] Body weight 2023-05-20 08:12:00 57.063 kg [facility] BMI 2023-05-20 08:12:00 22.28 kg/m2 [facility] Body height 2023-05-16 20:58:00 160 cm [facility] Systolic blood pressure 2023-03-20 16:43:00 154 mm[Hg] [facility] Diastolic blood pressure 2023-03-20 16:43:00 87 mm[Hg] [facility] Heart rate 2023-03-20 16:43:00 77 /min [facility] Body temperature 2023-03-20 16:43:00 36.39 [facility] Respiratory rate 2023-03-20 16:43:00 16 /min [facility] Body height 2023-03-20 16:43:00 160 [facility] 2023-03-20 16:43:00 51.71 kg Univ [facility] BMI 2023-03-20 16:43:00 20.19 kg/m2 [facility] Oxygen saturation in Arterial blood by Pulse oximetry 2023-03-20 16:43:00 100 /min [facility] Systolic blood pressure 2022-09-17 19:28:58 166 mm[Hg] [facility] Diastolic blood pressure 2022-09-17 19:28:58 103 mm[Hg] [facility] Heart rate 2022-09-17 19:28:58 78 /min [facility] Body temperature 2022-09-17 19:28:58 37.06 [facility] Respiratory rate 2022-09-17 19:28:58 18 /min [facility] Oxygen saturation in Arterial blood by Pulse oximetry 2022-09-17 19:28:58 98 /min [facility] Body height 2022-09-17 16:43:00 160 cm Univ [facility] Body weight 2022-09-17 16:43:00 51.71 kg Univ [facility] BMI 2022-09-17 16:43:00 20.19 kg/m2 [facility] Systolic blood pressure 2022-04-03 19:20:00 106 mm[Hg] [facility] Diastolic blood pressure 2022-04-03 19:20:00 72 mm[Hg] [facility] Heart rate 2022-04-03 19:20:00 104 /min [facility] Body temperature 2022-04-03 19:20:00 36.22 [facility] Respiratory rate 2022-04-03 19:20:00 18 /min [facility] Body height 2022-04-03 19:20:00 162.6 cm Univ [facility] Body weight 2022-04-03 19:20:00 46.72 kg Univ [facility] BMI 2022-04-03 19:20:00 17.68 kg/m2 [facility] Oxygen saturation in Arterial blood by Pulse oximetry 2022-04-03 19:20:00 89 /min [facility] Systolic blood pressure 2021-07-18 20:42:00 174 mm[Hg] [facility] Diastolic blood pressure 2021-07-18 20:42:00 98 mm[Hg] [facility] Heart rate 2021-07-18 20:42:00 104 /min [facility] 2021-07-18 20:42:00 35.72 [facility] Body height 2021-07-18 20:42:00 160 cm [facility] Body weight 2021-07-18 20:42:00 56.246 kg [facility] BMI 2021-07-18 20:42:00 21.97 kg/m2 [facility] BP Systolic 2024-11-11 14:44:00 132 mm[Hg] Step hen F You BP Diastolic 2024-11-11 14:44:00 78 mm[Hg] Samm phen F You Weight Measured 2024-11-11 14:44:00 128.00 pounds Delfino F You Height Measured 2024-11-11 14:44:00 63.00 inches Delfino F [place] Body Temperature 2024-11-11 14:44:00 97.20 degrees Delfino F You Heart Rate 2024-11-11 14:44:00 117.00 /min Step hen F You Respiratory Rate 2024-11-11 14:44:00 20.00 /min Delfino F You BP Systolic 2024-10-27 08:22:00 103 mm[Hg] Step hen F You BP Diastolic 2024-10-27 08:22:00 61 mm[Hg] Samm phen F You Weight Measured 2024-10-27 08:22:00 128.00 pounds Delfino F You Height Measured 2024-10-27 08:22:00 63.00 inches Delfino F You Body Temperature 2024-10-27 08:22:00 97.90 degrees Delfino F You Heart Rate 2024-10-27 08:22:00 71.00 /min Araceli en F You Respiratory Rate 2024-10-27 08:22:00 18.00 /min Delfino F You BP Systolic 2024-10-14 14:15:00 123 mm[Hg] Step hen F You BP Diastolic 2024-10-14 14:15:00 68 mm[Hg] Samm phen F You Weight Measured 2024-10-14 14:15:00 130.80 pounds Delfino F You Height Measured 2024-10-14 14:15:00 63.00 inches Delfino F You Body Temperature 2024-10-14 14:15:00 98.00 degrees Delfino F You Heart Rate 2024-10-14 14:15:00 89.00 /min Araceli en F You Respiratory Rate 2024-10-14 14:15:00 20.00 /min Delfino F You BP Systolic 2024-10-06 10:23:00 175 mm[Hg] Step hen F You BP Diastolic 2024-10-06 10:23:00 92 mm[Hg] Samm phen F You Weight Measured 2024-10-06 10:23:00 126.00 pounds Delfino F You Height Measured 2024-10-06 10:23:00 63.00 inches Delfino F You Body Temperature 2024-10-06 10:23:00 98.00 degrees Delfino F You Heart Rate 2024-10-06 10:23:00 92.00 /min Araceli en F You Respiratory Rate 2024-10-06 10:23:00 Delfino F You BP Systolic 2024-09-17 14:39:00 117 mm[Hg] Step hen F You BP Diastolic 2024-09-17 14:39:00 76 mm[Hg] Samm phen F You Weight Measured 2024-09-17 14:39:00 123.80 pounds Delfino F You Height Measured 2024-09-17 14:39:00 63.00 inches Delfino F You Body Temperature 2024-09-17 14:39:00 97.90 degrees Delfino F You Heart Rate 2024-09-17 14:39:00 66.00 /min Araceli en F You Respiratory Rate 2024-09-17 14:39:00 17.00 /min Delfino F You BP Systolic 2024-09-14 14:32:00 130 mm[Hg] Step hen F You BP Diastolic 2024-09-14 14:32:00 82 mm[Hg] Samm phen F You Weight Measured 2024-09-14 14:32:00 126.80 pounds Delfino F You Height Measured 2024-09-14 14:32:00 63.00 inches Delfino F You Body Temperature 2024-09-14 14:32:00 97.60 degrees Delfino F You Heart Rate 2024-09-14 14:32:00 66.00 /min Araceli en F You Respiratory Rate 2024-09-14 14:32:00 14.00 /min Delfino F You BP Systolic 2024-08-11 09:52:00 Step hen F You BP Diastolic 2024-08-11 09:52:00 Samm phen F You Weight Measured 2024-08-11 09:52:00 Delfino F You Height Measured 2024-08-11 09:52:00 Delfino F You Body Temperature 2024-08-11 09:52:00 Delfino F You Heart Rate 2024-08-11 09:52:00 Araceli en F You Respiratory Rate 2024-08-11 09:52:00 Delfino F You BP Systolic 2024-08-06 11:03:00 122 mm[Hg] Step hen F You BP Diastolic 2024-08-06 11:03:00 77 mm[Hg] Samm phen F You Weight Measured 2024-08-06 11:03:00 124.40 pounds Delfino F You Height Measured 2024-08-06 11:03:00 63.00 inches Delfino F You Body Temperature 2024-08-06 11:03:00 97.60 degrees Delfino F You Heart Rate 2024-08-06 11:03:00 75.00 /min Araceli en F You Respiratory Rate 2024-08-06 11:03:00 Delfino F You BP Systolic 2024-08-06 10:59:00 122 mm[Hg] Step hen F You BP Diastolic 2024-08-06 10:59:00 77 mm[Hg] Samm phen F You Weight Measured 2024-08-06 10:59:00 124.40 pounds Delfino F You Height Measured 2024-08-06 10:59:00 63.00 inches Delfino F You Body Temperature 2024-08-06 10:59:00 97.60 degrees Delfino F You Heart Rate 2024-08-06 10:59:00 Araceli en F You Respiratory Rate 2024-08-06 10:59:00 Delfino F You BP Systolic 2024-08-05 10:44:00 153 mm[Hg] Step hen F You BP Diastolic 2024-08-05 10:44:00 79 mm[Hg] Samm phen F You Weight Measured 2024-08-05 10:44:00 124.80 pounds Delfino F You Height Measured 2024-08-05 10:44:00 63.00 inches Delfino F You Body Temperature 2024-08-05 10:44:00 97.80 degrees Delfino F You Heart Rate 2024-08-05 10:44:00 61.00 /min Araceli en F You Respiratory Rate 2024-08-05 10:44:00 16.00 /min Delfino F You BP Systolic 2024-07-01 12:21:00 111 mm[Hg] Step hen F You BP Diastolic 2024-07-01 12:21:00 60 mm[Hg] Samm phen F You Weight Measured 2024-07-01 12:21:00 121.20 pounds Delfino F You Height Measured 2024-07-01 12:21:00 63.00 inches Delfino F You Body Temperature 2024-07-01 12:21:00 97.40 degrees Delfino F You Heart Rate 2024-07-01 12:21:00 71.00 /min Araceli en F You Respiratory Rate 2024-07-01 12:21:00 17.00 /min Delfino F You BP Systolic 2024-07-01 11:13:00 111 mm[Hg] Step hen F You BP Diastolic 2024-07-01 11:13:00 60 mm[Hg] Samm phen F You Weight Measured 2024-07-01 11:13:00 121.20 pounds Delfino F Oyu Height Measured 2024-07-01 11:13:00 63.00 inches Delfino F You Body Temperature 2024-07-01 11:13:00 97.40 degrees Delfino F You Heart Rate 2024-07-01 11:13:00 71.00 /min Araceli en F You Respiratory Rate 2024-07-01 11:13:00 17.00 /min Delfino F You BP Systolic 2024-06-09 11:29:00 95 mm[Hg] Step [...] 2024-01-13 09:16:00 143 mm[Hg] Step hen F Yuo BP Diastolic 2024-01-13 09:16:00 80 mm[Hg] Samm [...] BP Diastolic 2022-09-12 09:10:00 79 mm[Hg] Samm Orta Weight Measured 2022-09-12 09:10:00 118.80 pounds Delfino Endy Orta Height Measured 2022-09-12 09:10:00 63.00 inches Delfino Orta Body Temperature 2022-09-12 09:10:00 98.10 degrees Delfino Orta Heart Rate 2022-09-12 09:10:00 87.00 /min Araceli en Endy Orta Respiratory Rate 2022-09-12 09:10:00 18.00 /min Delfino [...] Date / Time Performed Performing Clinician Source [id number] [facility] 2024-11-03 00:00:00 Delfino Jenkins 2024-06-05 18:43:00 Spenser Chahal [facility] MAGNESIUM 2024-06-05 08:48:00 Essence Erwin [facility] BASIC METABOLIC PANEL (NA, K, CL, CO2, GLUCOSE, BUN, CREATININE, CA) 2024-06-05 08:48:00 Rubén Erwin [facility] CBC WITH DIFF 2024-06-05 08:48:00 Essence Erwin [facility] PROTHROMBIN TIME / INR 2024-06-05 08:48:00 Rubén Choudhury [facility] ACTIVATED PARTIAL THRMPLAS RAMY 2024-06-05 08:48:00 Rubén Erwin [facility] TRANSTHORACIC ECHO (TTE) COMPLETE W/ CONTRAST 2024-06-04 20:05:40 Rubén Erwin [facility] MAGNESIUM 2024-06-04 09:57:00 Essence Erwin [facility] BASIC METABOLIC PANEL (NA, K, CL, CO2, GLUCOSE, BUN, CREATININE, CA) 2024-06-04 09:57:00 Rubén Erwin [facility] LIPID PANEL (23827)(TOTAL CHOLESTEROL, TRIGLYCERIDES, HDL) 2024-06-04 09:57:00 Rubén Erwin [facility] CBC WITH DIFF 2024-06-04 09:57:00 Essence Erwin [facility] TROPONIN I 2024-06-04 05:20:00 Essence Erwin [facility] URINALYSIS 2024-06-04 04:26:00 Essence Erwin [facility] URINE DRUG (IMMUNOASSAY) - COMPREHENSIVE DRUG SCREEN 2024-06-04 00:57[facility]00 [facility] 2024-06-03 23:26[facility] 2024-06-03 23:21:00 Rubén Fowler [facility] MAGNESIUM 2024-06-03 23:06:00 [facility]24-06-03 23:06:00 [facility] HEPATIC FUNCTION PANEL (72433) (ALB,T.PRO,BILI T,BU/BC,ALT,AST,ALK PHOS) 2024-06-03 23:06:00 Rubén Erwin [facility] BASIC METABOLIC PANEL (NA, K, CL, CO2, GLUCOSE, BUN, CREATININE, CA) 2024-06-03 23:06:00 Rubén Erwin [facility] CBC WITH DIFF 2024-06-03 23:06:00 Essence Erwin [facility] GLYCOSYLATED HEMOGLOBIN (A1C) 2024-06-03 23:06:00 Rubén Erwin [facility] CD4 SUBSET ASSAY 2024-06-03 23:06:00 Robert Erwin [facility] N-TERMINAL PRO-BNP 2024-06-03 23:06:00 Rubén Erwin [facility] HUMAN IMMUNODEFICIENCY VIRUS 1 (HIV-1) BY QUANTITATIVE NAAT 2024-06-03 23:06:00 Rubén Erwin [facility] SYPHILIS IGG/IGM 2024-06-03 23:06:00 Robert Erwin [facility] (1,3)-JHAI-X-UBTQWV (FUNGITELL) 2024-06-03 23:06:00 Rubén Erwin [facility] HB ECG ROUTINE & RHYTHM STRIP 2024-06-03 22:21:34 Rubén Erwin [facility] REFERRAL- REQUEST/RESPONSE 2023-06-26 15:45:25 D octor Unassigned, [facility] BASIC METABOLIC PANEL (NA, K, CL, CO2, GLUCOSE, BUN, CREATININE, CA) 2023-05-20 08:28:00 Dawn Eddy [facility] CBC WITH DIFF 2023-05-20 08:28:00 Dawn Eddy [facility] TROPONIN I 2023-05-19 10:21:00 Daniel Arreaga [facility] BASIC METABOLIC PANEL (NA, K, CL, CO2, GLUCOSE, BUN, CREATININE, CA) 2023-05-19 10:21:00 Dawn Eddy [facility] LIPID PANEL (51612)(TOTAL CHOLESTEROL, TRIGLYCERIDES, HDL) 2023-05-19 10:21:00 James Stacy [facility] CD4 SUBSET ASSAY 2023-05-19 10:21:00 Daniel Arreaga [facility] UREA NITROGEN URINE 2023-05-18 08:30:00 Lefty Abreu [facility] COMP. METABOLIC PANEL (07785) 2023-05-17 18:43:00 Anyi Hearn [facility] CBC WITH DIFF 2023-05-17 18:43[facility] 2023-05-17 14:17:00 Essence Abreu [facility] SODIUM, URINE RANDOM 2023-05-17 14:16:00 Brady Lefty [facility] PROTEIN CREAT RATIO URINE RANDOM 2023-05-17 14:16:00 Brady [facility] TROPONIN I 2023-05-17 13:54:00 Brady [facility] TRANSTHORACIC ECHO (TTE) COMPLETE 2023-05-17 12:45:00 Kvgn Roberson [facility] CREATININE 2023-05-17 03:28:00 Brady [facility] TROPONIN I 2023-05-16 21:13:00 Kvng Roberson [facility] ACUTE CARE VENOUS BLOOD GAS 2023-05-16 18:21:00 Ayde Hearnherine [facility] XR CHEST 1 VW 2023-05-16 18:00:09 [facility] 2023-05-16 17:40:00 [facility] 2023-05-16 17:40:00 Ezra Anyi [facility] COMP. METABOLIC PANEL (52520) 2023-05-16 17:40:00 Anyi Hearn [facility] CBC WITH DIFF 2023-05-16 17:40[facility]00 [facility] RHYTHM STRIP 2023-05-16 17:21:17 Ezra Anyi [facility] ASSIGNMENT OF BENEFITS 2023-03-20 17:45:01 Docto r Unassigned, [facility] CONSENT/REFUSAL FOR DIAGNOSIS AND TREATMENT 2023-03-20 16:29:12 Doctor Unassigned, [facility] XR SPINE THORACIC 2 VW 2022-09-17 18:21:00 Vannesa Hobbs [facility] CONSENT/REFUSAL FOR DIAGNOSIS AND TREATMENT 2022-09-17 16:35:17 Doctor Unassigned, [facility] REFERRAL- REQUEST/RESPONSE 2022-06-05 05:01:00 D martinmey Unassigned, [facility] HSV 1&2, VZV NAAT 2022-04-03 20:43[facility]00 [facility] 2022-01-19 06:01:00 D martinmey Unassigned, [facility] 25896 Ecg Routine Ecg W/least 12 Lds W/i r 2016-10-23 00:00:00 Delfino Orta Plan of Care Planned Activity Planned Date Details Comments Source Goal Plan of Care Note [code = 28599-9] Goal Plan of Care Note [code = 83534-5] Goal Plan of Care Note [code = 38600-2] Goal Plan of Care Note [code = 38823-9] Goal Plan of Care Note [code = 44877-2] Goal Plan of Care Note [code = 76704-6] Goal Plan of Care Note [code = 54367-0] Goal Plan of Care Note [code = 01307-0] Goal Plan of Care Note [code = 42738-7] Goal Plan of Care Note [code = 85643-1] Goal Plan of Care Note [code = 06817-3] Goal Plan of Care Note [code = 31423-3] Goal Plan of Care Note [code = 65761-4] Goal Plan of Care Note [code = 28936-8] Goal Plan of Care Note [code = 79219-1] Goal Plan of Care Note [code = 33575-3] Goal Plan of Care Note [code = 64867-1] Goal Plan of Care Note [code = 60558-7] Goal Plan of Care Note [code = 82745-1] Goal Plan of Care Note [code = 52740-4] Goal Plan of Care Note [code = 29278-3] Goal Plan of Care Note [code = 24347-6] Goal Plan of Care Note [code = 68517-8] Goal Plan of Care Note [code = 02701-6] Goal Plan of Care Note [code = 68175-9] Goal Plan of Care Note [code = 06070-0] Goal Plan of Care Note [code = 10763-5] Goal Plan of Care Note [code = 89172-2] Goal Plan of Care Note [code = 14669-1] Goal Plan of Care Note [code = 80678-3] Goal Plan of Care Note [code = 81046-5] Goal Plan of Care Note [code = 18306-9] Goal Plan of Care Note [code = 17942-9] Goal Plan of Care Note [code = 07076-5] Goal Plan of Care Note [code = 15465-0] Goal Plan of Care Note [code = 17957-5] Goal Plan of Care Note [code = 13080-7] Goal Plan of Care Note [code = 09932-9] Goal Plan of Care Note [code = 13179-0] Goal Plan of Care Note [code = 46668-1] Goal Plan of Care Note [code = 85496-2] Goal Plan of Care Note [code = 41013-9] Goal Plan of Care Note [code = 80465-5] Goal Plan of Care Note [code = 90480-3] Goal Plan of Care Note [code = 70283-3] Goal Plan of Care Note [code = 69213-1] Goal Plan of Care Note [code = 37954-9] Goal Plan of Care Note [code = 91401-1] Goal Plan of Care Note [code = 91794-2] Goal Plan of Care Note [code = 44345-6] Goal Plan of Care Note [code = 11373-4] Goal Plan of Care Note [code = 88030-7] Goal Plan of Care Note [code = 07022-8] Goal Plan of Care Note [code = 15416-1] Goal Plan of Care Note [code = 61841-1] Goal Plan of Care Note [code = 91745-1] Goal Plan of Care Note [code = 30044-3] Goal Plan of Care Note [code = 23508-1] Goal Plan of Care Note [code = 19296-8] Goal Plan of Care Note [code = 30065-1] Goal Plan of Care Note [code = 14080-0] Goal Plan of Care Note [code = 17980-8] Goal Plan of Care Note [code = 85293-8] Goal Plan of Care Note [code = 76503-0] Goal Plan of Care Note [code = 39472-5] Goal Plan of Care Note [code = 68918-8] Goal Plan of Care Note [code = 64305-4] Goal Plan of Care Note [code = 71918-5] Goal Plan of Care Note [code = 00733-5] Goal Plan of Care Note [code = 27538-8] Goal Plan of Care Note [code = 79632-1] Goal Plan of Care Note [code = 29463-0] Goal Plan of Care Note [code = 67993-7] Goal Plan of Care Note [code = 53582-5] Goal Plan of Care Note [code = 94884-1] Goal Plan of Care Note [code = 66981-3] Goal Plan of Care Note [code = 66756-3] Goal Plan of Care Note [code = 63608-3] Goal Plan of Care Note [code = 79404-7] Goal Plan of Care Note [code = 01219-0] Goal Plan of Care Note [code = 10907-3] Goal Plan of Care Note [code = 54729-7] Goal Plan of Care Note [code = 52929-3] Goal Plan of Care Note [code = 29080-1] Goal Plan of Care Note [code = 73956-4] Goal Plan of Care Note [code = 64538-3] Goal Plan of Care Note [code = 45002-7] Goal Plan of Care Note [code = 89599-0] Goal Plan of Care Note [code = 45128-4] Goal Plan of Care Note [code = 63617-1] Goal Plan of Care Note [code = 00633-7] Goal Plan of Care Note [code = 17868-2] Goal Plan of Care Note [code = 07796-0] Goal Plan of Care Note [code = 55621-1] Goal Plan of Care Note [code = 49427-8] Goal Plan of Care Note [code = 45986-4] Goal Plan of Care Note [code = 33857-9] Goal Plan of Care Note [code = 21503-7] Goal Plan of Care Note [code = 51431-9] Goal Plan of Care Note [code = 14359-9] Goal Plan of Care Note [code = 91105-9] Goal Plan of Care Note [code = 68064-8] Goal Plan of Care Note [code = 30896-4] Goal Plan of Care Note [code = 18640-3] Goal Plan of Care Note [code = 68462-6] Goal Plan of Care Note [code = 84988-9] Goal Plan of Care Note [code = 76645-0] Goal Plan of Care Note [code = 17298-2] Goal Plan of Care Note [code = 60324-1] Goal Plan of Care Note [code = 73588-8] Goal Plan of Care Note [code = 99909-0] Goal Plan of Care Note [code = 70858-8] Goal Plan of Care Note [code = 76262-6] Goal Plan of Care Note [code = 44649-5] Goal Plan of Care Note [code = 75149-0] Goal Plan of Care Note [code = 47781-0] Goal Plan of Care Note [code = 13443-1] Goal Plan of Care Note [code = 92917-9] Goal Plan of Care Note [code = 48087-6] Goal Plan of Care Note [code = 02906-2] Goal Plan of Care Note [code = 03328-8] Goal Plan of Care Note [code = 57587-4] Goal Plan of Care Note [code = 11821-5] Goal Plan of Care Note [code = 66502-4] Goal Plan of Care Note [code = 07643-9] Goal Plan of Care Note [code = 07628-7] Goal Plan of Care Note [code = 91393-9] Goal Plan of Care Note [code = 55011-2] Goal Plan of Care Note [code = 78801-1] Goal Plan of Care Note [code = 95554-5] Goal Plan of Care Note [code = 77219-3] Goal Plan of Care Note [code = 33739-2] Goal Plan of Care Note [code = 99606-5] Goal Plan of Care Note [code = 76579-8] Goal Plan of Care Note [code = 96205-5] Goal Plan of Care Note [code = 92395-8] Goal Plan of Care Note [code = 40767-1] Goal Plan of Care Note [code = 62660-9] Goal Plan of Care Note [code = 60184-2] Goal Plan of Care Note [code = 18320-0] Goal Plan of Care Note [code = 38523-6] Goal Plan of Care Note [code = 40998-2] Goal Plan of Care Note [code = 39949-7] Goal Plan of Care Note [code = 70925-6] Goal Plan of Care Note [code = 65165-2] Goal Plan of Care Note [code = 67975-4] Goal Plan of Care Note [code = 06917-7] Goal Plan of Care Note [code = 10233-8] Goal Plan of Care Note [code = 48275-4] Goal Plan of Care Note [code = 00796-2] Goal Plan of Care Note [code = 99738-9] Goal Plan of Care Note [code = 27142-6] Goal Plan of Care Note [code = 75058-7] Goal Plan of Care Note [code = 37449-6] Goal Plan of Care Note [code = 58005-4] Goal Plan of Care Note [code = 94546-7] Goal Plan of Care Note [code = 38434-1] Goal Plan of Care Note [code = 68830-6] Goal Plan of Care Note [code = 74891-1] Goal Plan of Care Note [code = 39850-3] Goal Plan of Care Note [code = 00611-1] Goal Plan of Care Note [code = 74959-8] Goal Plan of Care Note [code = 46909-3] Goal Plan of Care Note [code = 15797-4] Goal Plan of Care Note [code = 44065-5] Goal Plan of Care Note [code = 58940-2] Goal Plan of Care Note [code = 66634-5] Goal Plan of Care Note [code = 64170-7] Goal Plan of Care Note [code = 46196-5] Goal Plan of Care Note [code = 31854-8] Goal Plan of Care Note [code = 07653-4] Goal Plan of Care Note [code = 10177-1] Goal Plan of Care Note [code = 41969-0] Goal Plan of Care Note [code = 28123-6] Encounters Start Date/Time End Date/Time Encounter Type Admission Type Attending Clinicians Care Facility Care Department Encounter ID Source 2023-12-04 10:08:00 Outpatient Zaria Orellana [facility] [id number] [facility] 2023-11-11 14:53:00 Outpatient [facility] [id number] [facility] 2023-03-29 10:18:01 Outpatient Zaria Orellana [facility] [id number] [facility] 2023-03-28 14:01:00 Outpatient Zaria Orellana [facility] [id number] [facility] 2023-03-26 15:20:01 Outpatient Zaria Orellana [facility] [id number] [facility] 2024-11-11 14:34:13 2024-11-11 14:34:13 Outpatient SFA SFA [id number] Delfino Orta 2024-11-11 00:00:00 2024-11-11 00:00:00 Outpatient Visit SFA [id number] f7n-76gx-7 [id number]-[id number] Delfino Orta 2024-11-03 14:30:14 2024-11-03 14:30:14 Outpatient SFA SFA 0923 Delfino Orta 2024-10-27 08:17:02 2024-10-27 08:17:[address] [facility] 16 Delfino Orta 2024-10-27 00:00:00 2024-10-27 00:00:00 Outpatient Visit SFA [id number] Delfino Orta 2024-10-14 14:22:16 2024-10-14 14:22:16 Outpatient SFA SFA [id number] Delfino Orta 2024-10-14 00:00:00 2024-10-14 00:00:00 Outpatient Visit SFA [id number] 370-4ae7-9 x79-d94ckf a665c0 Delfino Orta 2024-10-06 10:07:03 2024-10-06 10:07:03 Outpatient SFA SFA [id number] Delfino Orta 2024-10-06 00:00:00 2024-10-06 00:00:00 Outpatient Visit SFA [id number] 9fe-4feb-8 7r4-l0m5wu [id number] Delfino Orta 2024-10-05 13:33:43 2024-10-05 13:33:43 Outpatient SFA SFA 25 Delfino Orta 2024-09-16 00:00:00 2024-09-30 10:28:11 Telephone Guero Verdugo [facility] 1.2.840.114 350.1.13.10 4.2.7.2.686 [id number] [facility] 2024-09-17 14:33:45 2024-09-17 14:33:[address] [facility] 806 Delfino Schumacher You 2024-09-17 00:00:00 2024-09-17 00:00:00 Outpatient Visit SFA [id number] i26-4v07-3 [id number] e00e40 Delfino Schumacher You 2024-09-14 00:00:00 2024-09-14 00:00:00 Outpatient Visit SFA [id number] n5o3d6y0-5 650-4522-9 b5l-5sg3hj fbb87a Delfino Orta 2024-08-27 15:30:00 2024-08-27 15:30:00 Outpatient R GUERO VERDUGO [facility] [id number] [facility] 2024-08-11 09:30:49 2024-08-11 09:30:49 Outpatient SFA SFA 01 Delfino Schumacher You 2024-08-11 00:00:00 2024-08-11 00:00:00 Outpatient Visit SFA [id number] j35-65sr-r bed-v1972r 10a3a9 Delfino Orta 2024-08-07 09:56:24 2024-08-07 09:56:24 Outpatient SFA SFA 626 Delfino Schumacher You 2024-08-06 10:57:00 2024-08-06 10:57:00 Outpatient SFA SFA [id number] Delfino Orta 2024-08-06 00:00:00 2024-08-06 00:00:00 Outpatient Visit SFA [id number] 767-4b06-b 421-aa5b6d [id number] Delfino Orta 2024-08-05 10:33:59 2024-08-05 10:33:59 Outpatient SFA SFA 25 Delfino Orta 2024-08-05 00:00:00 2024-08-05 00:00:00 Outpatient Visit SFA [id number] ed1-4842-b ed1-4b2b99 e1da0a Delfino Orta 2024-07-28 00:00:00 2024-07-28 00:00:00 (TEL) [facility] [id number] [facility] 2024-07-08 14:27:00 2024-07-08 14:27:00 Outpatient SFA SFA [id number] Delfino Orta 2024-07-01 10:56:19 2024-07-01 10:56:19 Outpatient SFA SFA [id number] Delfino Orta 2024-07-01 00:00:00 2024-07-01 00:00:00 Outpatient KENJI SAAB LUCAS [facility] [id number] [facility] 2024-07-01 00:00:00 2024-07-01 00:00:00 Outpatient Visit SFA [id number] 35c-45e2-b cb4-c4b9b3 [id number] Delfino Orta 2024-06-24 00:00:00 2024-06-24 00:00:00 (TEL) [facility] [id number] [facility] 2024-06-23 00:00:00 2024-06-23 00:00:00 Outpatient KENJI SAAB LUCAS [facility] [id number] [facility] 2024-06-23 00:00:00 2024-06-23 00:00:00 Outpatient KENJI SAAB LUCAS [facility] [id number] [facility] 2024-06-19 00:00:00 2024-06-20 02:34:27 Spenser Shukla [facility] 1.114 350.1.13.10 4.2.7.2.686 [id number] [facility] 2023-09-24 00:00:00 2024-06-11 15:16:55 Letter (Out) Atif Jackson [facility] ([facility] 1.114 350.1.13.10 4.2.7.2.686 [id number] [facility] 2024-06-09 11:18:56 2024-06-09 11:18:56 Outpatient SFA SFA [id number] Delfino Orta 2024-06-09 00:00:00 2024-06-09 00:00:00 Outpatient Visit SFA [id number] 3v5-71o7-y i0k-6s2665 [id number] Delfino Orta 2024-06-08 00:00:00 2024-06-08 14:22:09 Transition of Care Abbi Rivera Christine [facility] [address] 1..114 350.1.13.10 4.2.7.2.686 [id number] [facility] 2024-06-03 16:20:00 2024-06-05 17:23:00 Outpatient U KENJI LORD [facility] [id number] [facility] 2024-06-03 16:20:00 2024-06-05 17:23:00 Hospital Encounter Kenji Lord [facility] ([facility] 1..114 350.1.13.10 4.2.7.2.686 [id number] [facility] 2024-06-01 10:21:20 2024-06-01 10:21:20 Outpatient SFA SFA [id number] Delfino Orta 2024-05-27 08:17:14 2024-05-27 08:17:14 Outpatient SFA SFA [id number] Delfino Orta 2024-05-27 00:00:00 2024-05-27 00:00:00 Outpatient Visit SFA [id number] r15-0705-n 5f0-72442e b65fa6 Delfino Orta 2024-05-13 14:25:39 2024-05-13 14:25:39 Outpatient SFA SFA [id number] Delfino Orta 2024-05-13 00:00:00 2024-05-13 00:00:00 Outpatient Visit SFA [id number]-w ce7-4df7-b 2p2-t56mb8 [id number] Delfino Orta 2024-05-07 00:00:00 2024-05-07 00:00:00 Outpatient Visit SFA SFA [id number] 4y9-2427-a 23e-ecfc93 3af3b0 Delfino Orta 2024-05-05 09:58:47 2024-05-05 09:58:47 Outpatient SFA SFA [id number] Delfino Orta 2024-05-05 00:00:00 2024-05-05 00:00:00 Outpatient Visit SFA [id number]-k a88-3565-g eb4-351776 73a12c Delfino Orta 2024-04-22 00:00:00 2024-04-22 00:00:00 (TEL) STLMLC [facility]MLC [id number] [facility] 2024-04-09 09:05:03 2024-04-09 09:05:03 Outpatient SFA SFA [id number] Delfino Orta 2024-04-09 00:00:00 2024-04-09 00:00:00 Outpatient Visit SFA [id number]-n u4s-3ne7-x 1d9-73t6s4 e4a1a1 Delfino Orta 2024-04-08 15:06:50 2024-04-08 15:06:[address] [facility] [id number] Delfino Orta 2024-04-08 00:00:00 2024-04-08 00:00:00 Outpatient Visit SFA CHETAN [id number] 8m1-9737-w [id number] Delfino Orta 2023-06-26 00:00:00 2024-03-28 07:46:41 Orders Only Doctor Unassigned, [facility] Doctor Unassigned, [facility] 1.2.840.114 350.1.13.10 4.2.7.2.686 [id number] [facility] 2024-03-09 08:55:19 2024-03-09 08:55:[address] [facility] [id number] Delfino Orta 2024-03-09 00:00:00 2024-03-09 00:00:00 Outpatient Visit SFA [id number] m2ly9g66-s 49b-4852-9 m54-b36yp3 ow2505 Delfino Orta 2024-02-26 11:12:50 2024-02-26 11:12:50 Outpatient SFA CHETAN [id number] Delfino Orta 2024-02-26 00:00:00 2024-02-26 00:00:00 Outpatient Visit SFA [id number] 2s2-3s18-i 0j3-fli83p [id number] Delfino Orta 2024-02-07 11:11:04 2024-02-07 11:11:[address] [facility] [id number] Delfino Orta 2024-02-07 00:00:00 2024-02-07 00:00:00 Outpatient Visit SFA [id number] t54-8c91-6 126-ece94c [id number] Delfino Orta 2024-01-13 09:11:38 2024-01-13 09:11:38 Outpatient SFA SFA [id number] Delfino Orta 2024-01-13 00:00:00 2024-01-13 00:00:00 Outpatient Visit SFA [id number] fda-45c9-8 [id number] [id number] Delfino Orta 2024-01-01 00:00:00 2024-01-01 00:00:00 Outpatient Visit SFA [id number]-n i8y-869q-5 acd-bd3c1c b5c472 Delfino Orta 2023-11-28 00:00:00 2023-11-28 00:00:00 Outpatient Visit SFA [id number] m345fu8x-s ffe-4d1a-9 602-7d4d0f c3cbfb Delfino Orta 2023-11-20 09:01:17 2023-11-20 09:01:17 Outpatient SFA SFA [id number] Delfino Orta 2023-11-19 10:28:43 2023-11-19 10:28:43 Outpatient SFA SFA [id number] Delfino Orta 2023-11-19 00:00:00 2023-11-19 00:00:00 Outpatient Visit SFA [id number] 1oj245g7-3 425-43cf-b 669-5m3473 edee0e Delfino Orta 2023-11-12 00:00:00 2023-11-12 00:00:00 (TEL) STLMLC [facility]C [id number] [facility] 2023-11-11 00:00:00 2023-11-11 00:00:00 OFFICE VISIT NEW PT LEVEL 4 STLMLC STLMLC [id number] [facility] 2023-11-02 11:02:07 2023-11-02 11:02:07 Outpatient SFA SFA [id number] Delfino Orta 2023-11-02 00:00:00 2023-11-02 00:00:00 Outpatient Visit SFA [id number]-n 694-4dee-9 1dc-3505b0 b84bc6 Delfino Orta 2023-10-09 14:12:37 2023-10-09 14:12:37 Outpatient SFA SFA [id number] Delfino Orta 2023-10-09 00:00:00 2023-10-09 00:00:00 Outpatient Visit SFA [id number] ve63f3n9-3 e95-2171-1 ac5-c614e2 mn811w Delfino Orta 2023-09-23 13:55:35 2023-09-23 13:55:35 Outpatient SFA SFA [id number] Delfino Orta 2023-09-23 00:00:00 2023-09-23 00:00:00 Outpatient Visit SFA [id number] ad76v8m6-i acc-4b92-9 j8d-8t22ow [id number] Delfino Orta 2023-09-10 09:05:48 2023-09-10 09:05:48 Outpatient SFA SFA [id number] Delfino Orta 2023-09-10 00:00:00 2023-09-10 00:00:00 Outpatient Visit SFA [id number] r6qm573m-2 2k8-14f0-2 [id number]-556840 [id number] Delfino Orta 2023-08-28 13:07:55 2023-08-28 13:07:55 Outpatient SFA SFA 17 Delfino Orta 2023-08-28 00:00:00 2023-08-28 00:00:00 Outpatient Visit SFA [id number] p3u4gvhi-2 0j2-5c37-5 4l2-7v7v16 [id number] Delfino Orta 2023-08-22 00:00:00 2023-08-22 00:00:00 Outpatient Visit SFA [id number] 2n0w40t2-4 bc5-4fb0-9 s98-9750s1 66acd9 Delfino Orta 2023-08-09 14:45:50 2023-08-09 14:45:50 Outpatient SFA SFA [id number] Delfino Orta 2023-08-09 00:00:00 2023-08-09 00:00:00 Outpatient Visit SFA [id number] eq5sj47f-b 5fc-42da-a 332-1c7b70 [id number] Delfino Orta 2023-07-24 11:05:48 2023-07-24 11:05:[address] [facility] [id number] Delfino Orta 2023-07-24 00:00:00 2023-07-24 00:00:00 Outpatient Visit SFA [id number] yk7d6s2l-6 41c-49d6-a c9k-1651gn [id number] Delfino Orta 2023-07-09 00:00:00 2023-07-09 00:00:00 Outpatient Visit SFA [id number] u61-52q7-a [id number] [id number] Delfino Schumacher You 2023-07-02 00:00:00 2023-07-02 14:33:10 [facility] 1..840.114 350.1.13.10 4.2.7.2.686 [id number] [facility] 2023-06-05 13:09:09 2023-06-05 13:09:[address] [facility] 4 Delfino Schumacher Kin[place] 2023-06-04 13:27:22 2023-06-04 13:27:[address] [facility] 3 Delfino Schumahcer You 2023-06-04 00:00:00 2023-06-04 00:00:[address] [facility] [id number] d7vk5ho6-o fc5-45eb-a 553-38d34c 0b1f1c Delfino Schumacher You 2023-05-21 00:00:00 2023-05-21 00:00:00 Transition of Care Lj Paredes 1..840.114 350.1.13.10 4.2.7.2.686 [id number] [facility] 2023-05-16 12:13:00 2023-05-20 16:40:00 Inpatient X KVNG ROBERSON [facility] [id number] [facility] 2023-05-16 12:13:00 2023-05-20 16:40:00 Hospital Encounter Ezra, Anyi Kvng Roberson [facility] 1.2.840.114 350.1.13.10 4.2.7.2.686 [id number] [facility] 2023-05-09 13:59:33 2023-05-09 13:59:33 Outpatient [place] [id number] Delfino Schumacher You 2023-04-18 10:12:11 2023-04-18 10:12:11 Outpatient SFA [place] [id number] Delfino Schumacher You 2023-04-02 09:41:47 2023-04-02 09:41:47 Outpatient [place] [id number] Delfino Schumacher You 2023-03-20 10:44:00 2023-03-20 12:35:00 Emergency X ANYI HEARN [facility] ERT [id number] [facility] 2023-03-20 10:44:00 2023-03-20 12:35:00 Emergency Anyi Hearn [facility] 1.2.840.114 350.1.13.10 4.2.7.2.686 [id number] [facility] 2023-03-18 10:58:22 2023-03-18 10:58:22 Outpatient [facility] [id number] Delfino Schumacher Kin[place] 2023-03-14 14:37:27 2023-03-14 14:37:27 Outpatient [place] [id number] Delfino Schumacher [place] 2023-03-07 13:58:45 2023-03-07 13:58:45 Outpatient SFA [place] [id number] Delfino Schumacher You 2022-12-14 14:53:29 2022-12-14 14:53:29 Outpatient SFA [place] [id number] Delfino Schumacher You 2022-10-04 11:25:10 2022-10-04 11:25:10 Outpatient SFA [place] [id number] Delfino Orta 2022-09-17 11:44:00 2022-09-17 14:31:00 Emergency X GASTON HOBBS [facility] ERT [id number] [facility] 2022-09-17 11:44:00 2022-09-17 14:31:00 Emergency Gaston Hobbs J [facility] 1.2.840.114 350.1.13.10 4.2.7.2.686 [id number] [facility] 2022-09-12 09:01:58 2022-09-12 09:01:58 Outpatient [facility] [id number] Delfino Orta 2022-09-11 00:00:00 2022-09-11 00:00:00 Case Management Kasandra Flores [facility] 1..840.114 350.1.13.10 4.2.7.2.686 [id number] [facility] 2022-08-07 09:45:03 2022-08-07 09:45:03 Outpatient [facility] [id number] Delfino Orta 2022-08-01 13:52:32 2022-08-01 13:52:32 Outpatient [facility] 0621 Delfino Orta 2022-07-18 09:30:00 2022-07-18 09:30:00 Outpatient R CLARITZA JAMISON [facility] [id number] [facility] 2022-07-04 11:11:38 2022-07-04 11:11:38 Outpatient [facility] 0524 Delfino Orta 2022-06-05 00:00:00 2022-06-05 00:00:00 Orders Only Doctor Unassigned, Friend[facility] 1..840.114 350.1.13.10 4.2.7.2.686 [id number] [facility] 2022-05-29 09:31:33 2022-05-29 09:31:33 Outpatient [facility] [id number] Delfino Orta 2022-05-15 13:00:00 2022-05-15 13:00:00 Outpatient R [facility] [id number] [facility] 2022-05-15 09:34:43 2022-05-15 09:34:[address] [facility] [id number] Delfino Orta 2022-04-19 15:25:24 2022-04-19 15:25:[address] [facility] 0309 Delfino Orta 2022-04-04 00:00:00 2022-04-04 00:00:00 Case Management Del Jeanine Shoemaker [facility] 1..840.114 350.1.13.10 4.2.7.2.686 [id number] [facility] 2022-04-03 13:00:00 2022-04-03 14:00:00 Office Visit Guerline Garcia Jeffrey [facility] 1..840.114 350.1.13.10 4.2.7.2.686 [id number] [facility] 2022-04-03 13:00:00 2022-04-03 13:00:00 Outpatient R GUERO MARTINEZ [facility] [id number] [facility] 2022-04-02 15:14:37 2022-04-02 15:14:[address] [facility] [id number] Delfino Orta 2022-03-28 13:26:46 2022-03-28 13:26:[address] [facility] [id number] Delfino Orta 2022-02-28 11:43:30 2022-02-28 11:43:[address] [facility] [id number] Delfino Orta 2022-02-28 00:00:00 2022-02-28 00:00:00 Outpatient Visit t74s4ne2- x016-46o0 -9cca-918 [id number] u37q2nw7-w 633-44a8-9 cca-918f69 9a0a89 2022-02-27 15:30:00 2022-02-27 15:30:00 Outpatient R [facility] [id number] [facility] 2022-02-23 10:25:15 2022-02-23 10:25:[address] [facility] [id number] Delfino Orta 2022-02-22 00:00:00 2022-02-22 00:00:00 Case Management Oleg Jeanine Shoemaker Robert [facility] 1.114 350.1.13.10 4.2.7.2.686 [id number] [facility] 2022-01-29 00:00:00 2022-01-29 00:00:00 Case Management Osman Ware [facility] 1..114 350.1.13.10 4.2.7.2.686 [id number] [facility] 2022-01-19 13:56:18 2022-01-19 13:56:18 Outpatient [facility] [id number] Delfino Orta 2022-01-19 00:00:00 2022-01-19 00:00:00 Orders Only Doctor Unassigned, [facility] 1..114 350.1.13.10 4.2.7.2.686 [id number] [facility] 2022-01-19 00:00:00 2022-01-19 00:00:00 Outpatient Visit [id number] 1727-41cc -8650-544 91yn35o7w [id number] 727-41cc-8 650-34611y b58e4d 2021-11-15 00:00:00 2021-11-15 00:00:00 Case Management Kasandra Flores [facility] 1.114 350.1.13.10 4.2.7.2.686 [id number] [facility] 2021-11-06 00:00:00 2021-11-06 00:00:00 Outpatient Visit [id number] 2021-10-10 09:30:00 2021-10-10 09:30:00 Outpatient R [facility] [id number] [facility] 2021-08-07 00:00:00 2021-08-07 00:00:00 Outpatient Visit [id number] 2021-07-18 15:15:00 2021-07-18 16:23:57 Outpatient R APOLINAR WEBER [facility] [id number] [facility] 2021-07-18 15:15:00 2021-07-18 16:23:57 Office Visit Pgy2 Apolinar Weber [facility] 1.840.114 350.1.13.10 4.2.7.2.686 [id number] [facility] 2021-07-18 15:15:00 2021-07-18 16:23:57 Outpatient R APOLINAR WEBER [facility] [id number] [facility] 2021-06-27 00:00:00 2021-06-27 00:00:00 Telephone Enedina Mccarty [facility] .840.114 350.1.13.10 4.2.7.2.686 [id number] [facility] 2021-06-15 00:00:00 2021-06-15 00:00:00 Transition of Care Lj Paredes 1..840.114 350.1.13.10 4.2.7.2.686 [id number] [facility] 2021-06-09 10:48:00 2021-06-14 17:22:00 Inpatient X TEODORO, BILLY [facility] AURELIA [id number] [facility] 2021-06-09 10:48:00 2021-06-14 17:22:00 Hospital Encounter Toby Donohue A [place], Alfred Scott [facility] 1.2840.114 350.1.13.10 4.2.7.2.686 [id number] [facility] 2021-06-12 00:00:00 2021-06-12 00:00:00 Case Management Evette Dunn [facility] 1.0.114 350.1.13.10 4.2.7.2.686 [id number] [facility] 2021-06-08 10:46:00 2021-06-08 16:28:00 Emergency X KENNEDI BLUE [facility] ERT [id number] [facility] 2021-06-08 10:46:00 2021-06-08 16:28:00 Emergency Kennedi Blue [facility] 1.840.114 350.1.13.10 4.2.7.2.686 [id number] [facility] 2021-05-24 00:00:00 2021-05-24 00:00:00 Letter (Out) Mikael Quiroz [facility] 1.0.114 350.1.13.10 4.2.7.2.686 [id number] [facility] 2021-05-23 00:00:00 2021-05-23 00:00:00 Orders Only Doctor Unassigned, [place] [facility] 1.2.840.114 350.1.13.10 4.2.7.2.686 [id number] [facility] 2021-05-01 11:30:00 2021-05-01 12:47:00 Emergency X LJ LIANG [facility] ERT [id number] [facility] 2021-05-01 11:30:00 2021-05-01 12:47:00 Emergency Lj Liang [facility] 1.2.840.114 350.1.13.10 4.2.7.2.686 [id number] [facility] 2020-10-04 11:44:00 2020-10-04 12:54:00 Emergency MARGARET ROBERTSON [facility] ERT [id number] [facility] 2020-10-04 11:44:00 2020-10-04 12:54:00 Emergency Margaret Nunez [facility] 1.2.840.114 350.1.13.10 4.2.7.2.686 [id number] [facility] 2020-09-29 00:00:00 2020-09-29 00:00:00 Telephone Bonny Morris [facility] 1.2.840.114 350.1.13.10 4.2.7.2.686 [id number] [facility] 2020-09-22 14:30:00 2020-09-22 14:30:00 Outpatient R BONNY MORRIS [facility] [id number] [facility] 2020-08-25 09:28:00 2020-08-25 10:21:00 Emergency Margaret Nunez [facility] 1.2.840.114 350.1.13.10 4.2.7.2.686 [id number] [facility] 2020-08-25 09:28:00 2020-08-25 10:21:00 Emergency MARGARET ROBERTSON [facility] ERT [id number] [facility] 2020-08-24 14:43:00 2020-08-24 15:59:00 Emergency Terri Elliott [facility] 1.2.840.114 350.1.13.10 4.2.7.2.686 [id number] [facility] 2020-08-24 14:43:00 2020-08-24 15:59:00 Emergency X [facility] ERT [id number] [facility] 2020-08-24 00:00:00 2020-08-24 00:00:00 Telephone Bonny Morris K.HAg [facility] 1.2.840.114 350.1.13.10 4.2.7.2.686 [id number] [facility] 2020-08-12 15:00:00 2020-08-12 15:00:00 Outpatient R BONNY MORRIS [facility] [id number] [facility] 2020-08-12 00:00:00 2020-08-12 00:00:00 Telephone Bonny Morris K.HAg [facility] 1.2.840.114 350.1.13.10 4.2.7.2.686 [id number] [facility] 2020-07-28 00:00:00 2020-07-28 00:00:00 Telephone Bonny Morris K.HAg [facility] 1.2.840.114 350.1.13.10 4.2.7.2.686 [id number] [id number] [facility] 2020-07-28 00:00:00 2020-07-28 00:00:00 Orders Only Doctor Unassigned, [place] [facility] 1.284.114 350.1.13.10 4.2.7.2.686 [id number] [facility] 2020-07-27 00:00:00 2020-07-27 00:00:00 Telephone Bonny Morris K.HAg [facility] 1.2.840.114 350.1.13.10 4.2.7.2.686 [id number] 059 [id number] [facility] 2020-07-27 00:00:00 2020-07-27 00:00:00 [facility] 1.2.840.114 350.1.13.10 4.2.7.2.686 [id number] 059 [id number] [facility] 2020-07-26 14:25:36 2020-07-26 15:12:16 Office Visit Bonny Morris [facility] 1.2.840.114 350.1.13.10 4.2.7.2.686 [id number] 059 [id number] [facility] 2020-07-26 14:30:00 2020-07-26 14:30:00 Outpatient R BONNY MORRIS [facility] [id number] [facility] 2020-07-20 10:25:00 2020-07-20 15:52:00 Emergency Dawn Blanco [facility] 1.2.840.114 350.1.13.10 4.2.7.2.686 [id number] 084 [id number] [facility] 2020-07-20 10:16:00 2020-07-20 10:16:00 Emergency X [facility] ERT [id number] [facility] 2020-07-01 13:47:00 2020-07-01 16:34:00 Emergency Josse Lockhart [facility] 1.2.840.114 350.1.13.10 4.2.7.2.686 [id number] 084 [id number] [facility] 2020-07-01 13:47:00 2020-07-01 16:34:00 Emergency X JOSSE LOCKHART [facility] ERT [id number] [facility] 2020-07-01 13:47:00 2020-07-01 16:34:00 Emergency Josse Lockhart [facility] 1.2.840.114 350.1.13.10 4.2.7.2.686 [id number] 084 [id number] Results Test Description Test Time Test Comments Results Result Co mments Source Delfino OrtaVITAMIN D,25-OH,TOTAL,[id number] 00:00:00* Test Item Value Reference Range Interpretation Comme nts VITAMIN D,25-OH,TOTAL,IA (te st code = 91471-7) 25 ng/mL Delfino [id number] 00:00:00* Test Item Value Reference Range Interpretation Comme carlito MAGNESIUM (test code = 11897-7) 2.4 mg/dL Delfino OrtaVITAMIN B12/FOLATE, SERUM [id number] 00:00:00* Test Item Value Reference Range Interpretation Comme nts VITAMIN B12 (test code = 2132-9) 319 pg/mL FOLATE, SERUM (test code = 2284-8) TNP ng/mL Delfino OrtaHIV 1 RNA, QUANTITATIVE REAL TIME [id number] 00:00:00* Test Item Value Reference Range Interpretation Comme carlito HIV 1 RNA, QN PCR (test code = 12902-8) 82 copies/mL HIV 1 RNA, QN PCR (test code = 31129-9) 1.91 Logcopies/mL Delfino OrtaVITAMIN B12/FOLATE, SERUM [id number] 00:00:00* Test Item Value Reference Range Interpretation Comme nts VITAMIN B12 (test code = 2132-9) 319 pg/mL FOLATE, SERUM (test code = 2284-8) TNP ng/mL Delfino OrtaHIV 1 RNA, QUANTITATIVE REAL TIME [id number] 00:00:00* Test Item Value Reference Range Interpretation Comme nts HIV 1 RNA, QN PCR (test code = 80445-2) 82 copies/mL HIV 1 RNA, QN PCR (test code = 36544-2) 1.91 Logcopies/mL Delfino Schumacher AustinVITAMIN B12/FOLATE, SERUM [id number] 00:00:00* Test Item Value Reference Range Interpretation Comme nts VITAMIN B12 (test code = 2132-9) 319 pg/mL FOLATE, SERUM (test code = 2284-8) TNP ng/mL Delfino OrtaHIV 1 RNA, QUANTITATIVE REAL TIME [id number] 00:00:00* Test Item Value Reference Range Interpretation Comme nts HIV 1 RNA, QN PCR (test code = 39987-2) 82 copies/mL HIV 1 RNA, QN PCR (test code = 20551-0) 1.91 Logcopies/mL Delfino OrtaCALCIUM, [id number] 00:00:00* Test Item Value Reference Range Interpretation Comme nts CALCIUM, IONIZED (test code = 54589-1) 5.9 mg/dL Delfino OrtaCOMPREHENSIVE METABOLIC [id number] 00:00:00* Test Item Value Reference Range Interpretation Comme nts GLUCOSE (test code = 2345-7) 135 mg/dL UREA NITROGEN (BUN) (test code = 3094-0) 29 mg/dL CREATININE (test code = 2160-0) 1.31 mg/dL EGFR (test code = 88823-4) 46 mL/min/1.73m2 BUN/CREATININE RATIO (test code = 3097-3) 22 (calc) SODIUM (test code = 2951-2) 135 mmol/L POTASSIUM (test code = 2823-3) 6.1 mmol/L CHLORIDE (test code = 2075-0) 110 mmol/L CARBON DIOXIDE (test code = 2027-9) 25 mmol/L CALCIUM (test code = 03345-4) 11.1 mg/dL PROTEIN, TOTAL (test code = 2885-2) 9.4 g/dL ALBUMIN (test code = 1751-7) 5.0 g/dL GLOBULIN (test code = 71054-5) 4.4 g/dL(calc) ALBUMIN/GLOBULIN RATIO (test code = 1759-0) 1.1 (calc) BILIRUBIN, TOTAL (test code = 1975-2) 0.5 mg/dL ALKALINE PHOSPHATASE (test code = 6768-6) 86 U/L AST (test code = 1920-8) 31 U/L ALT (test code = 1742-6) 32 U/L Delfino OrtaLIPID [id number] 00:00:00* Test Item Value Reference Range Interpretation Comme nts CHOLESTEROL, TOTAL (test cod e = 2093-3) 260 mg/dL HDL CHOLESTEROL (test code = 2085-9) 164 mg/dL TRIGLYCERIDES (test code = 2571-8) 57 mg/dL LDL-CHOLESTEROL (test code = 07957-2) 83 mg/dL(calc) CHOL/HDLC RATIO (test code = 9830-1) 1.6 (calc) NON HDL CHOLESTEROL (test co de = 33009-3) 96 mg/dL(calc) Delfino OrtaHEMOGLOBIN [id number] 00:00:00* Test Item Value Reference Range Interpretation Comme nts HEMOGLOBIN A1c (test code = 4548-4) 6.2 % Delfino OrtaLYMPHOCYTE SUBSET PANEL 00:00:00* Test Item Value Reference Range Interpretation Comme nts % CD4 (test code = 8123-2) 24 % ABSOLUTE CD4+ CELLS (test co de = 59959-7) 220 cells/uL ABSOLUTE LYMPHOCYTES (test c ode = 731-0) 927 cells/uL Delfino OrtaCOMPREHENSIVE METABOLIC [id number] 00:00:00* Test Item Value Reference Range Interpretation Comme nts GLUCOSE (test code = 2345-7) 135 mg/dL UREA NITROGEN (BUN) (test code = 3094-0) 29 mg/dL CREATININE (test code = 2160-0) 1.31 mg/dL EGFR (test code = 39854-0) 46 mL/min/1.73m2 BUN/CREATININE RATIO (test code = 3097-3) 22 (calc) SODIUM (test code = 2951-2) 135 mmol/L POTASSIUM (test code = 2823-3) 6.1 mmol/L CHLORIDE (test code = 2075-0) 110 mmol/L CARBON DIOXIDE (test code = 2027-9) 25 mmol/L CALCIUM (test code = 71194-9) 11.1 mg/dL PROTEIN, TOTAL (test code = 2885-2) 9.4 g/dL ALBUMIN (test code = 1751-7) 5.0 g/dL GLOBULIN (test code = 58798-6) 4.4 g/dL(calc) ALBUMIN/GLOBULIN RATIO (test code = 1759-0) 1.1 (calc) BILIRUBIN, TOTAL (test code = 1975-2) 0.5 mg/dL ALKALINE PHOSPHATASE (test code = 6768-6) 86 U/L AST (test code = 1920-8) 31 U/L ALT (test code = 1742-6) 32 U/L Delfino OrtaCALCIUM, [id number] 00:00:00* Test Item Value Reference Range Interpretation Comme nts CALCIUM, IONIZED (test code = 99192-3) 5.9 mg/dL Delfino OrtaLIPID [id number] 00:00:00* Test Item Value Reference Range Interpretation Comme nts CHOLESTEROL, TOTAL (test cod e = 2093-3) 260 mg/dL HDL CHOLESTEROL (test code = 2085-9) 164 mg/dL TRIGLYCERIDES (test code = 2571-8) 57 mg/dL LDL-CHOLESTEROL (test code = 20140-1) 83 mg/dL(calc) CHOL/HDLC RATIO (test code = 9830-1) 1.6 (calc) NON HDL CHOLESTEROL (test co de = 04839-0) 96 mg/dL(calc) Delfino OrtaHEMOGLOBIN [id number] 00:00:00* Test Item Value Reference Range Interpretation Comme nts HEMOGLOBIN A1c (test code = 4548-4) 6.2 % Delfino OrtaLYMPHOCYTE SUBSET PANEL 00:00:00* Test Item Value Reference Range Interpretation Comme nts % CD4 (test code = 8123-2) 24 % ABSOLUTE CD4+ CELLS (test co de = 68250-0) 220 cells/uL ABSOLUTE LYMPHOCYTES (test c ode = 731-0) 927 cells/uL Delfino OrtaCOMPREHENSIVE METABOLIC [id number] 00:00:00* Test Item Value Reference Range Interpretation Comme nts GLUCOSE (test code = 2345-7) 135 mg/dL UREA NITROGEN (BUN) (test code = 3094-0) 29 mg/dL CREATININE (test code = 2160-0) 1.31 mg/dL EGFR (test code = 66594-5) 46 mL/min/1.73m2 BUN/CREATININE RATIO (test code = 3097-3) 22 (calc) SODIUM (test code = 2951-2) 135 mmol/L POTASSIUM (test code = 2823-3) 6.1 mmol/L CHLORIDE (test code = 2075-0) 110 mmol/L CARBON DIOXIDE (test code = 2027-9) 25 mmol/L CALCIUM (test code = 40887-0) 11.1 mg/dL PROTEIN, TOTAL (test code = 2885-2) 9.4 g/dL ALBUMIN (test code = 1751-7) 5.0 g/dL GLOBULIN (test code = 74153-0) 4.4 g/dL(calc) ALBUMIN/GLOBULIN RATIO (test code = 1759-0) 1.1 (calc) BILIRUBIN, TOTAL (test code = 1975-2) 0.5 mg/dL ALKALINE PHOSPHATASE (test code = 6768-6) 86 U/L AST (test code = 1920-8) 31 U/L ALT (test code = 1742-6) 32 U/L Delfino OrtaCALCIUM, [id number] 00:00:00* Test Item Value Reference Range Interpretation Comme nts CALCIUM, IONIZED (test code = 68022-0) 5.9 mg/dL Delfino OrtaLIPID [id number] 00:00:00* Test Item Value Reference Range Interpretation Comme nts CHOLESTEROL, TOTAL (test cod e = 3-3) 260 mg/dL HDL CHOLESTEROL (test code = 5-9) 164 mg/dL TRIGLYCERIDES (test code = 2571-8) 57 mg/dL LDL-CHOLESTEROL (test code = 18242-3) 83 mg/dL(calc) CHOL/HDLC RATIO (test code = 9830-1) 1.6 (calc) NON HDL CHOLESTEROL (test co de = 78966-3) 96 mg/dL(calc) Delfino OrtaHEMOGLOBIN [id number] 00:00:00* Test Item Value Reference Range Interpretation Comme nts HEMOGLOBIN A1c (test code = 4548-4) 6.2 % Delfino OrtaLYMPHOCYTE SUBSET PANEL 00:00:00* Test Item Value Reference Range Interpretation Comme nts % CD4 (test code = 8123-2) 24 % ABSOLUTE CD4+ CELLS (test co de = 92435-4) 220 cells/uL ABSOLUTE LYMPHOCYTES (test c ode = 731-0) 927 cells/uL Delfino Orta(1,3)-ADJP-D-SEGKJZ (FUNGITELL)2024-06-05 18:06:35* Test Item Value Reference Range Interpretation Comme nts (1,3)-kkvb-R-wuqlgu (test code = 62001-7) <31 pg/mL (1,3)-ziyf-R-moecgw Interpretation (test code = 67163-4) Negative Negative INTERPRETIVE INFORMATION: (1,3)-tynh-S-lnkawu (Fungitell) ?Less than 31 pg/mL ................... Negative ?31-59 pg/mL ..................... ..... Negative ?60-79 pg/mL ..................... ..... Indeterminate ?Greater than or equal to 80 pg/mL .... Positive The Fungitell test is indicated for presumptive diagnosis of fungal infection and should be used in conjunction with other diagnostic procedures. This test does not detect certain fungal species such as Cryptococcus, which produce very low levels of (1,3)-uoer-Y-wtgjdm. This test will not detect the zygomycetes, such as Absidia, Mucor, and Rhizopus, which are not known to produce (1,3)-dxhe-U-zjpilo. In addition, the yeast phase of Blastomyces dermatitidis produces little (1,3)-sahx-F-fssbpy and may not be detected by the assay.Performed By: [employer] [place] [id number] Director: Jaskaran Anguiano MD, PhDCLIA Number: [id number] [facility] Center[facility]esium2025-[facility]-25 09:27:04* Test Item Value Reference Range Interpretation Comme nts MAGNESIUM (test code = 4434024838) 2.2 mg/dL 1.7-2.4 Lab Interpretation (test cod e = 02628-0) Normal [facility] Center[facility] (NA, K, CL, CO2, GLUCOSE, BUN, CREATININE, CA)2024-06-05 09:27:04* Test Item Value Reference Range Interpretation Comme nts NA (test code = 2752890154) 138 mmol/L 135-145 K (test code = 9781373033) 4.5 mmol/L 3.5-5.0 CL (test code = 4201230740) 109 mmol/L 98-108 H CO2 TOTAL (test code = 7890050929) 23 mmol/L 23-31 AGAP (test code = 4697645749) 6 2-16 BUN (test code = 3882689581) 37 mg/dL 7-23 H GLUCOSE (test code = 2950483482) 96 mg/dL 70-110 CREATININE (test code = 2160-0) 1.58 mg/dL 0.50-1.04 H CALCIUM (test code = 5251857923) 9.8 mg/dL 8.6-10.6 eGFR (test code = 29568-2) 37.1 mL/min/1.73m2 CKD-EPI eGFR (2020). Assuming creatinine has been stable day-to-day for at least three months, the eGFR indicates Category G3b (30 - 44 mL/min/1.73 m2) Lab Interpretation (test code = 89318-4) Abnormal [facility] CenterProthrombin Time / [id number] 09:10:41* Test Item Value Reference Range Interpretation Comme [facility] PROTIME PATIENT (test code = 5964-2) 10.8 10.1-12.6 INR (test code = 6301-6) 1 <=4.5 Normal INR <1.1; Warfarin Therapeutic range 2.0 to 3.0 or 2.5 to 3.5, depending upon the indications. Lab Interpretation (test code = 37319-4) Normal [facility] CenteraPTT2025-04-25 09:10:41* Test Item Value Reference Range Interpretation Comme nts APTT Patient (test code = 3173-2) 26 26-36 Lab Interpretation (test cod e = 41703-7) Normal [facility] CenterCbc with [id number] 09:04:37* Test Item Value Reference Range Interpretation Comme nts WBC (test code = 6690-2) 6.01 4.30-11.10 RBC (test code = 789-8) 3.35 3.93-5.25 L HGB (test code = 718-7) 11 g/dL 11.6-15.0 L HCT (test code = 4544-3) 33.4 % 35.7-45.2 L MCV (test code = 787-2) 99.7 fL 80.6-95.5 H MCH (test code = 785-6) 32.8 pg 25.9-32.8 MCHC (test code = 786-4) 32.9 g/dL 31.6-35.1 RDW-SD (test code = 71294-5) 51.3 fL 39.0-49.9 H RDW-CV (test code = 788-0) 14.3 % 12.0-15.5 PLT (test code = 777-3) 193 166-358 MPV (test code = 10688-7) 10.8 fL 9.5-12.9 NRBC/100 WBC (test code = 3148345012) 0 0.0-10.0 NRBC x10^3 (test code = 9038530799) See_Comment [Automated messa ge] The system which generated this result transmitted reference range: 10*3/?L. The reference range was not used to interpret this result as normal/abnormal. GRAN MAT (NEUT) % (test code = 770-8) 73.1 % IMM GRAN % (test code = 8952844672) 0.3 % LYMPH % (test code = 736-9) 16.5 % MONO % (test code = 5905-5) 8.3 % EOS % (test code = 713-8) 0.8 % BASO % (test code = 706-2) 1 % GRAN MAT x10^3(ANC) (test code = 8496117901) 4.39 10*3/uL 1.88-7.09 IMM GRAN x10^3 (test code = 6794835940) 0.00-0.06 LYMPH x10^3 (test code = 731-0) 0.99 10*3/uL 1.32-3.29 L MONO x10^3 (test code = 742-7) 0.5 10*3/uL 0.33-0.92 EOS x10^3 (test code = 711-2) 0.05 10*3/uL 0.03-0.39 BASO x10^3 (test code = 704-7) 0.06 10*3/uL 0.01-0.07 Lab Interpretation (test code = 72866-6) Abnormal [facility] CenterTransthoracic echo (TTE)2024-06-04 22:45:29* Test Item Value Reference Range Interpretation Comme nts Height (test code = 1709969492) 63 in Weight (test code = 3245501089) 125 lbs Systolic BP (test code = 1135378801) 112 mmHg Diastolic BP (test code = 8447142366) 72 mmHg Heart Rate (test code = 8595797220) 89 bpm LVOT stroke volume (test code = 7379516589) 66.2 cm3 EF(Teich) (test code = 5880359782) 85.3 % LVIDD (test code = 0137865183) 3.3 cm LVIDS (test code = 1003957356) 1.54 cm Left Ventricular End Systolic Volume by Teichholz Method (test code = 7679013) 6.5 mL Left Ventricular End Diastolic Volume by Teichholz Method (test code = 7376112) 44.2 mL IVS (test code = 1233673347) 1.77 cm LVPWD (test code = 8939307082) 1.31 cm LVOT diameter (test code = 5536305369) 1.71 cm LVOT area (test code = 5525819943) 2.29 cm2 FS (test code = 4718043742) 53 % MV Peak E Barber (test code = 3621087725) 70.6 cm/s E wave decelartion time (test code = 2171674478) 0.15 s MV E/e' septal (test code = 9137173441) 4.3 cm/s LA Volume Index (BP) (test code = 3740194844) 32.1 mL/m2 LA volume (BP) (test code = 8084658400) 50.8 mL LVOT peak barber (test code = 3833392927) 151.9 cm/s LVOT mn grad (test code = 8329505285) 4.3 mmHg LV GLS Endo Peak A2C () (test code = 6543482297) -7.6 % LV GLS Endo Peak A3C () (test code = 6502692536) -7 % LV GLS Endo Peak A4C () (test code = 6910728117) -7.8 % LV GLS Endo Peak Avg () (test code = 9401066261) -7.5 % BSA (test code = 3379899022) 1.58 m2 LAV(MOD-sp2) (test code = 0101674557) 51 mL LAV(MOD-sp4) (test code = 2943437519) 46.3 mL Tapse (test code = 0881487756) 1.73 cm Aortic valve mean velocity (test code = 3015118547) 217 cm/s Ao peak barber (test code = 2577096458) 322.8 cm/s Ao VTI (test code = 5645103481) 54.8 cm AV LVOT peak gradient (test code = 9206434297) 9.2 mmHg LVOT peak VTI (test code = 9990342708) 28.9 cm AV area by cont VTI (test code = 4335571708) 1.2 cm2 AV area peak barber (test code = 6802725771) 1.1 cm2 LV V1 mean (test code = 8911551086) 92.2 cm/s Ao max PG (test code = 1795321546) 41.7 mm[Hg] MV Prop V (test code = 4303432236) 80.1 cm/s Ao root diam (test code = 5573224153) 2.9 cm AV peak gradient (test code = 6751388190) 41.7 mmHg AV valve area (test code = 4975945642) 1.21 cm2 AV mean gradient (test code = 3042970697) 21.7 mmHg Aortic root (test code = 9880330498) 2.9 cm Ao root annulus (test code = 2916018795) 2.9 cm PW (test code = 7122825215) 1.31 cm 0.6-1.1 EF - 2D (test code = 91594084) 85.3 % Interventricular Septum Diastolic Thickness by 2D (test code = 4849632) 1.77 cm GLS (test code = 6529192563) -8 % Radiology Study observation (narrative) (test code = 03843-6) GARRY (test code = GARRY) ?Left?Ventricle: Left [...] enhancing agent used. Patient exhibited sinus rhythm. [facility] Immunodeficiency Virus 1 (Hiv-1) by Quantitative [id number] 22:24:52* Test Item Value Reference Range Interpretation Comme nts HIV-1 Quantitative NAAT - copies/mL (test code = 47415-0) 38 Not Detected Copies/mL H HIV-1 Quantitative Interpretation (test code = 17358-7) Detected Not Detected A GARRY (test code [...] clinically indicated. Lab Interpretation (test code = 14407-2) Abnormal [facility] CenterLipid Panel (65176)(Total Cholesterol, Triglycerides, HDL)2024-06-04 19:54:26* Test Item Value Reference Range Interpretation Comme nts CHOL (test code = 1274828620) 204 mg/dL 120-200 H HDL (test code = 0063471789) 102 mg/dL >=50 HDLC RATIO (test code = 9171918412) 2 <=4.5 TRIG (test code = 5016132779) 52 mg/dL 30-170 LDL CHOL (test code = 47416-0) 92 mg/dL <=160 VLDL (test code = 1110108557) 10 mg/dL 5-60 Lab Interpretation (test cod e = 70111-8) Abnormal [facility] CenterCd4 Subset [id number] 15:26:02* Test Item Value Reference Range Interpretation Comme nts CD4 % (test code = 8123-2) 18 % 31-60 L CD4 Absolute (test code = 86281-3) 41 410-1590 L Lab Interpretation (test cod e = 98000-6) Abnormal [facility] CenterSyphilis IgG/QsY9581-16-69 14:10:37* Test Item Value Reference Range Interpretation Comme nts Syphilis IgG/IgM (test code = 96401-6) Nonreactive Nonreactive Syphilis Serology Interpretation (test code = 70114-1) No serologic evidence of syphilis. If recent exposure is suspected, retest in 2 to 4 weeks. GARRY (test code = GARRY) ? [facility] CenterMagnesium2025-04-24 10:23:58* Test Item Value Reference Range Interpretation Comme nts MAGNESIUM (test code = 9409959337) 2.8 mg/dL 1.7-2.4 H Lab Interpretation (test cod e = 42859-7) [facility] (NA, K, CL, CO2, GLUCOSE, BUN, CREATININE, CA)2024-06-04 10:23:58* Test Item Value Reference Range Interpretation Comme nts NA (test code = 5339825694) 136 mmol/L 135-145 K (test code = 1212767487) 4.6 mmol/L 3.5-5.0 CL (test code = 2820838748) 108 mmol/L 98-108 CO2 TOTAL (test code = 9411558253) 18 mmol/L 23-31 L AGAP (test code = 7649032193) 10 2-16 BUN (test code = 1206765353) 32 mg/dL 7-23 H GLUCOSE (test code = 1342028748) 163 mg/dL 70-110 H CREATININE (test code = 2160-0) 1.36 mg/dL 0.50-1.04 H CALCIUM (test code = 1885899149) 9.8 mg/dL 8.6-10.6 eGFR (test code = 94662-5) 44.4 mL/min/1.73m2 Lab Interpretation (test cod e = 82319-7) Abnormal [facility] with [id number] 10:13:16* Test Item Value Reference Range Interpretation [...] 33.3 g/dL 31.6-35.1 RDW-SD (test code = 37368-0) 49.1 fL 39.0-49.9 RDW-CV (test code = 788-0) 14 % 12.0-15.5 PLT (test code = 777-3) 194 166-358 MPV (test code = 81159-0) 10.9 fL 9.5-12.9 NRBC/100 WBC (test code = 0941029759) 0 0.0-10.0 NRBC x10^3 (test code = 0322743357) See_Comment [Automated [employer] ge] The system which generated this result transmitted reference range: 10*3/?L. The reference range was not used to interpret this result as normal/abnormal. GRAN MAT (NEUT) % (test code = 770-8) 84.8 % IMM GRAN % (test code = 3701172912) 0.7 % LYMPH % (test code = 736-9) 9.2 % MONO % (test code = 5905-5) 4.6 % EOS % (test code = 713-8) 0 % BASO % (test code = 706-2) 0.7 % GRAN MAT x10^3(ANC) (test code = 1682293756) 2.6 10*3/uL 1.88-7.09 IMM GRAN x10^3 (test code = 4480839121) 0.00-0.06 LYMPH x10^3 (test code = 731-0) 0.28 10*3/uL 1.32-3.29 L MONO x10^3 (test code = 742-7) 0.14 10*3/uL 0.33-0.92 L EOS x10^3 (test code = 711-2) 0.03-0.39 L BASO x10^3 (test code = 704-7) 0.01-0.07 Lab Interpretation (test code = 57171-0) Abnormal [facility] CenterTroponin [id number] 06:36:35* Test Item Value Reference Range Interpretation Comme nts TROPONIN I (test code = 1813767196) 0.092 ng/mL <=0.034 H GARRY (test code [...] of biotin. Lab Interpretation (test code = 06765-2) [facility]normal [facility] CenterXR Chest 1 [id number] 04:50:33Exam: Chest (1 View), 06/03/2024 5:45 PM. Ordering Physician: KENJI LORD. History: sob . Technique: One view of the chest. Comparison: Chest radiograph 06/08/2021. Findings: No focal consolidation. No pneumothorax or effusion. Normal size of thecardiac silhouette. Atherosclerosis of the aorta. No acute osseous finding. [facility] CenterGlycosylated Hemoglobin [id number] 03:47:18 * Test Item Value Reference Range Interpretation Comme [facility] HGB A1C (test code = 4548-4) 5.8 % 4.0-5.7 H GARRY (test code = GARRY) Reference RangesNormal: <5.7%Prediabetes: 5.7 - 6.4%Diabetes: > 6.5% Lab Interpretation (test code = 42588-2) Abnormal [facility] CenterTroponin [id number] 00:00:09* Test Item Value Reference Range Interpretation Comme [facility] TROPONIN I (test code = 9065431308) 0.12 ng/mL <=0.034 H GARRY (test code [...] of biotin. Lab Interpretation (test code = 96701-5) Abnormal [facility] CenterCOMPREHENSIVE METABOLIC [id number] 00:00:00* Test Item Value Reference Range Interpretation Comme [facility] GLUCOSE (test code = 2345-7) 96 mg/dL UREA NITROGEN (BUN) (test code = 3094-0) 18 mg/dL CREATININE (test code = 2160-0) 1.21 mg/dL EGFR (test code = 33304-4) 51 mL/min/1.73m2 BUN/CREATININE RATIO (test code = 3097-3) 15 (calc) SODIUM (test code = 2951-2) 143 mmol/L POTASSIUM (test code = 2823-3) 4.2 mmol/L CHLORIDE (test code = 2075-0) 110 mmol/L CARBON DIOXIDE (test code = 2027-9) 22 mmol/L CALCIUM (test code = 15510-6) 11.1 mg/dL PROTEIN, TOTAL (test code = 2885-2) 8.8 g/dL ALBUMIN (test code = 1751-7) 4.5 g/dL GLOBULIN (test code = 25658-2) 4.3 g/dL(calc) ALBUMIN/GLOBULIN RATIO (test code = 1759-0) 1.0 (calc) BILIRUBIN, TOTAL (test code = 1975-2) 0.8 mg/dL ALKALINE PHOSPHATASE (test code = 6768-6) 85 U/L AST (test code = 1920-8) 21 U/L ALT (test code = 1742-6) 14 U/L Delfino OrtaHEMOGLOBIN [id number] 00:00:00* Test Item Value Reference Range Interpretation Comme [facility] HEMOGLOBIN A1c (test code = 4548-4) 6.2 % Delfino OrtaLIPID [id number] 00:00:00* Test Item Value Reference Range Interpretation Comme [facility] CHOLESTEROL, TOTAL (test cod e = 3-3) 215 mg/dL HDL CHOLESTEROL (test code = 2084-9) 123 mg/dL TRIGLYCERIDES (test code = 2571-8) 70 mg/dL LDL-CHOLESTEROL (test code = 69952-0) 77 mg/dL(calc) CHOL/HDLC RATIO (test code = 9830-1) 1.7 (calc) NON HDL CHOLESTEROL (test co de = 36474-0) 92 mg/dL(calc) Delfino OrtaCBC (INCLUDES DIFF/PLT)2024-06-04 00:00:00* [...] cells/uL ABSOLUTE BAND NEUTROPHILS (test code = 39916-6) DNR cells/uL ABSOLUTE METAMYELOCYTES (yohannes t code = 68490-7) DNR cells/uL ABSOLUTE MYELOCYTES (test code = 62963-1) DNR cells/uL ABSOLUTE PROMYELOCYTES (test code = 27673-7) DNR cells/uL ABSOLUTE LYMPHOCYTES (test code = 731-0) 1003 cells/uL ABSOLUTE MONOCYTES (test cod e = 742-7) 410 cells/uL ABSOLUTE EOSINOPHILS (test code = 711-2) 29 cells/uL ABSOLUTE BASOPHILS (test cod e = 704-7) 51 cells/uL ABSOLUTE BLASTS (test code = 85292-3) DNR cells/uL ABSOLUTE NUCLEATED RBC (test code = 06705-0) DNR cells/uL NEUTROPHILS (test code = 770-8) 73.8 % BAND NEUTROPHILS (test code = 764-1) DNR % METAMYELOCYTES (test code = 740-1) DNR % MYELOCYTES (test code = 749-2) DNR % PROMYELOCYTES (test code = 783-1) DNR % LYMPHOCYTES (test code = 736-9) 17.6 % REACTIVE LYMPHOCYTES (test code = 78217-8) DNR % MONOCYTES (test code = 5905-5) 7.2 % EOSINOPHILS (test code = 713-8) 0.5 % BASOPHILS (test code = 706-2) 0.9 % BLASTS (test code = 709-6) DNR % NUCLEATED RBC (test code = 57664-0) DNR /100WBC COMMENT(S) (test code = 8251-1) DNR Delfino OrtaPTH, INTACT (ICMA) AND IONIZED [id number] 00:00:00* Test Item Value Reference Range Interpretation Comme nts PARATHYROID HORMONE, INTACT (test code = 2731-8) 71 pg/mL CALCIUM (test code = 82955-7) 11.1 mg/dL CALCIUM, IONIZED (test code = 80814-2) 5.9 mg/dL Delfino Schumacher AustinPHOSPHATE ( PHOSPHORUS)2024-06-04 00:00:00* Test Item Value Reference Range Interpretation Comme nts PHOSPHATE ( PHOSPHORUS) (t est code = 2777-1) 2.6 mg/dL Delfino OrtaHCV RNA, QUANTITATIVE REAL TIME [id number] 00:00:00* Test Item Value Reference Range Interpretation Comme nts HCV RNA, QUANTITATIVE REAL TIME PCR (test code = 97400-7) <15 NOT DETECTED IU/mL HCV RNA, QUANTITATIVE REAL TIME PCR (test code = 69395-3) <1.18 NOT DETECTED LogIU/mL Delfino OrtaLYMPHOCYTE SUBSET PANEL 00:00:00* Test Item Value Reference Range Interpretation Comme nts % CD4 (test code = 8123-2) 23 % ABSOLUTE CD4+ CELLS (test co de = 38197-1) 212 cells/uL % CD8 (test code = 8101-8) 57 % ABSOLUTE CD8+ CELLS (test co de = 48506-7) 534 cells/uL CD4/CD8 RATIO (test code = 96452-8) 0.40 ABSOLUTE LYMPHOCYTES (test c ode = 731-0) 943 cells/uL COMMENT(S) (test code = 8251-1) DNR Delfino OrtaCOMPREHENSIVE METABOLIC [id number] 00:00:00* Test Item Value Reference Range Interpretation Comme nts GLUCOSE (test code = 2345-7) 96 mg/dL UREA NITROGEN (BUN) (test code = 3094-0) 18 mg/dL CREATININE (test code = 2160-0) 1.21 mg/dL EGFR (test code = 43446-8) 51 mL/min/1.73m2 BUN/CREATININE RATIO (test code = 3097-3) 15 (calc) SODIUM (test code = 2951-2) 143 mmol/L POTASSIUM (test code = 2823-3) 4.2 mmol/L CHLORIDE (test code = 2075-0) 110 mmol/L CARBON DIOXIDE (test code = 2027-9) 22 mmol/L CALCIUM (test code = 76195-1) 11.1 mg/dL PROTEIN, TOTAL (test code = 2885-2) 8.8 g/dL ALBUMIN (test code = 1751-7) 4.5 g/dL GLOBULIN (test code = 53146-1) 4.3 g/dL(calc) ALBUMIN/GLOBULIN RATIO (test code = 1759-0) 1.0 (calc) BILIRUBIN, TOTAL (test code = 1975-2) 0.8 mg/dL ALKALINE PHOSPHATASE (test code = 6768-6) 85 U/L AST (test code = 1920-8) 21 U/L ALT (test code = 1742-6) 14 U/L Delfino OrtaHEMOGLOBIN [id number] 00:00:00* Test Item Value Reference Range Interpretation Comme nts HEMOGLOBIN A1c (test code = 4548-4) 6.2 % Delfino OrtaLIPID [id number] 00:00:00* Test Item Value Reference Range Interpretation Comme [facility] CHOLESTEROL, TOTAL (test cod e = 2093-3) 215 mg/dL HDL CHOLESTEROL (test code = 2085-9) 123 mg/dL TRIGLYCERIDES (test code = 2571-8) 70 mg/dL LDL-CHOLESTEROL (test code = 76578-4) 77 mg/dL(calc) CHOL/HDLC RATIO (test code = 9830-1) 1.7 (calc) NON HDL CHOLESTEROL (test co de = 05767-7) 92 mg/dL(calc) Delfino OrtaCBC (INCLUDES DIFF/PLT)2024-06-04 00:00:00* [...] cells/uL ABSOLUTE BAND NEUTROPHILS (test code = 60813-8) DNR cells/uL ABSOLUTE METAMYELOCYTES (yohannes t code = 82992-4) DNR cells/uL ABSOLUTE MYELOCYTES (test code = 21187-6) DNR cells/uL ABSOLUTE PROMYELOCYTES (test code = 90309-1) DNR cells/uL ABSOLUTE LYMPHOCYTES (test code = 731-0) 1003 cells/uL ABSOLUTE MONOCYTES (test cod e = 742-7) 410 cells/uL ABSOLUTE EOSINOPHILS (test code = 711-2) 29 cells/uL ABSOLUTE BASOPHILS (test cod e = 704-7) 51 cells/uL ABSOLUTE BLASTS (test code = 63799-7) DNR cells/uL ABSOLUTE NUCLEATED RBC (test code = 15603-2) DNR cells/uL NEUTROPHILS (test code = 770-8) 73.8 % BAND NEUTROPHILS (test code = 764-1) DNR % METAMYELOCYTES (test code = 740-1) DNR % MYELOCYTES (test code = 749-2) DNR % PROMYELOCYTES (test code = 783-1) DNR % LYMPHOCYTES (test code = 736-9) 17.6 % REACTIVE LYMPHOCYTES (test code = 70452-2) DNR % MONOCYTES (test code = 5905-5) 7.2 % EOSINOPHILS (test code = 713-8) 0.5 % BASOPHILS (test code = 706-2) 0.9 % BLASTS (test code = 709-6) DNR % NUCLEATED RBC (test code = 12499-6) DNR /100WBC COMMENT(S) (test code = 8251-1) DNR Delfino OrtaPTH, INTACT (ICMA) AND IONIZED [id number] 00:00:00* Test Item Value Reference Range Interpretation Comme nts PARATHYROID HORMONE, INTACT (test code = 2731-8) 71 pg/mL CALCIUM (test code = 96056-2) 11.1 mg/dL CALCIUM, IONIZED (test code = 77038-0) 5.9 mg/dL Delfino Schumacher AustinPHOSPHATE ( PHOSPHORUS)2024-06-04 00:00:00* Test Item Value Reference Range Interpretation Comme nts PHOSPHATE ( PHOSPHORUS) (t est code = 2777-1) 2.6 mg/dL Delfino OrtaHCV RNA, QUANTITATIVE REAL TIME [id number] 00:00:00* Test Item Value Reference Range Interpretation Comme nts HCV RNA, QUANTITATIVE REAL TIME PCR (test code = 06665-0) <15 NOT DETECTED IU/mL HCV RNA, QUANTITATIVE REAL TIME PCR (test code = 39665-3) <1.18 NOT DETECTED LogIU/mL Delfino OrtaLYMPHOCYTE SUBSET PANEL [id number] 00:00:00* Test Item Value Reference Range Interpretation Comme nts % CD4 (test code = 8123-2) 23 % ABSOLUTE CD4+ CELLS (test co de = 35593-0) 212 cells/uL % CD8 (test code = 8101-8) 57 % ABSOLUTE CD8+ CELLS (test co de = 26385-3) 534 cells/uL CD4/CD8 RATIO (test code = 82649-8) 0.40 ABSOLUTE LYMPHOCYTES (test c ode = 731-0) 943 cells/uL COMMENT(S) (test code = 8251-1) DNR Delfino OrtaCOMPREHENSIVE METABOLIC [id number] 00:00:00* Test Item Value Reference Range Interpretation Comme nts GLUCOSE (test code = 2345-7) 96 mg/dL UREA NITROGEN (BUN) (test code = 3094-0) 18 mg/dL CREATININE (test code = 2160-0) 1.21 mg/dL EGFR (test code = 96877-5) 51 mL/min/1.73m2 BUN/CREATININE RATIO (test code = 3097-3) 15 (calc) SODIUM (test code = 2951-2) 143 mmol/L POTASSIUM (test code = 2823-3) 4.2 mmol/L CHLORIDE (test code = 2075-0) 110 mmol/L CARBON DIOXIDE (test code = 2027-9) 22 mmol/L CALCIUM (test code = 80559-4) 11.1 mg/dL PROTEIN, TOTAL (test code = 2885-2) 8.8 g/dL ALBUMIN (test code = 1751-7) 4.5 g/dL GLOBULIN (test code = 45086-8) 4.3 g/dL(calc) ALBUMIN/GLOBULIN RATIO (test code = 1759-0) 1.0 (calc) BILIRUBIN, TOTAL (test code = 1975-2) 0.8 mg/dL ALKALINE PHOSPHATASE (test code = 6768-6) 85 U/L AST (test code = 1920-8) 21 U/L ALT (test code = 1742-6) 14 U/L Delfino OrtaHEMOGLOBIN [id number] 00:00:00* Test Item Value Reference Range Interpretation Comme nts HEMOGLOBIN A1c (test code = 4548-4) 6.2 % Delfino OrtaLIPID [id number] 00:00:00* Test Item Value Reference Range Interpretation Comme nts CHOLESTEROL, TOTAL (test cod e = 2093-3) 215 mg/dL HDL CHOLESTEROL (test code = 2085-9) 123 mg/dL TRIGLYCERIDES (test code = 2571-8) 70 mg/dL LDL-CHOLESTEROL (test code = 43284-6) 77 mg/dL(calc) CHOL/HDLC RATIO (test code = 9830-1) 1.7 (calc) NON HDL CHOLESTEROL (test co de = 00082-8) 92 mg/dL(calc) Delfino OrtaCBC (INCLUDES DIFF/PLT)2024-06-04 00:00:00* [...] cells/uL ABSOLUTE BAND NEUTROPHILS (test code = 93256-7) DNR cells/uL ABSOLUTE METAMYELOCYTES (yohannes t code = 22675-6) DNR cells/uL ABSOLUTE MYELOCYTES (test code = 30875-7) DNR cells/uL ABSOLUTE PROMYELOCYTES (test code = 37047-1) DNR cells/uL ABSOLUTE LYMPHOCYTES (test code = 731-0) 1003 cells/uL ABSOLUTE MONOCYTES (test cod e = 742-7) 410 cells/uL ABSOLUTE EOSINOPHILS (test code = 711-2) 29 cells/uL ABSOLUTE BASOPHILS (test cod e = 704-7) 51 cells/uL ABSOLUTE BLASTS (test code = 69788-0) DNR cells/uL ABSOLUTE NUCLEATED RBC (test code = 80978-0) DNR cells/uL NEUTROPHILS (test code = 770-8) 73.8 % BAND NEUTROPHILS (test code = 764-1) DNR % METAMYELOCYTES (test code = 740-1) DNR % MYELOCYTES (test code = 749-2) DNR % PROMYELOCYTES (test code = 783-1) DNR % LYMPHOCYTES (test code = 736-9) 17.6 % REACTIVE LYMPHOCYTES (test code = 94623-3) DNR % MONOCYTES (test code = 5905-5) 7.2 % EOSINOPHILS (test code = 713-8) 0.5 % BASOPHILS (test code = 706-2) 0.9 % BLASTS (test code = 709-6) DNR % NUCLEATED RBC (test code = 00175-5) DNR /100WBC COMMENT(S) (test code = 8251-1) DNR Delfino OrtaPTH, INTACT (ICMA) AND IONIZED [id number] 00:00:00* Test Item Value Reference Range Interpretation Comme nts PARATHYROID HORMONE, INTACT (test code = 2731-8) 71 pg/mL CALCIUM (test code = 91039-9) 11.1 mg/dL CALCIUM, IONIZED (test code = 79030-4) 5.9 mg/dL Delfino Schumacher AustinPHOSPHATE ( PHOSPHORUS)2024-06-04 00:00:00* Test Item Value Reference Range Interpretation Comme nts PHOSPHATE ( PHOSPHORUS) (t est code = 2777-1) 2.6 mg/dL Delfino OrtaHCV RNA, QUANTITATIVE REAL TIME [id number] 00:00:00* Test Item Value Reference Range Interpretation Comme nts HCV RNA, QUANTITATIVE REAL TIME PCR (test code = 16806-9) <15 NOT DETECTED IU/mL HCV RNA, QUANTITATIVE REAL TIME PCR (test code = 01831-4) <1.18 NOT DETECTED LogIU/mL Delfino OrtaLYMPHOCYTE SUBSET PANEL [id number] 00:00:00* Test Item Value Reference Range Interpretation Comme nts % CD4 (test code = 8123-2) 23 % ABSOLUTE CD4+ CELLS (test co de = 72948-0) 212 cells/uL % CD8 (test code = 8101-8) 57 % ABSOLUTE CD8+ CELLS (test co de = 83984-5) 534 cells/uL CD4/CD8 RATIO (test code = 40493-8) 0.40 ABSOLUTE LYMPHOCYTES (test c ode = 731-0) 943 cells/uL COMMENT(S) (test code = 8251-1) DNR Delfino OrtaCOMPREHENSIVE METABOLIC [id number] 00:00:00* Test Item Value Reference Range Interpretation Comme nts GLUCOSE (test code = 2345-7) 96 mg/dL UREA NITROGEN (BUN) (test code = 3094-0) 18 mg/dL CREATININE (test code = 2160-0) 1.21 mg/dL EGFR (test code = 07301-9) 51 mL/min/1.73m2 BUN/CREATININE RATIO (test code = 3097-3) 15 (calc) SODIUM (test code = 2951-2) 143 mmol/L POTASSIUM (test code = 2823-3) 4.2 mmol/L CHLORIDE (test code = 2075-0) 110 mmol/L CARBON DIOXIDE (test code = 8-9) 22 mmol/L CALCIUM (test code = 92271-8) 11.1 mg/dL PROTEIN, TOTAL (test code = 2885-2) 8.8 g/dL ALBUMIN (test code = 1751-7) 4.5 g/dL GLOBULIN (test code = 08357-4) 4.3 g/dL(calc) ALBUMIN/GLOBULIN RATIO (test code = 1759-0) 1.0 (calc) BILIRUBIN, TOTAL (test code = 1975-2) 0.8 mg/dL ALKALINE PHOSPHATASE (test code = 6768-6) 85 U/L AST (test code = 1920-8) 21 U/L ALT (test code = 1742-6) 14 U/L Delfino OtraHEMOGLOBIN [id number] 00:00:00* Test Item Value Reference Range Interpretation Comme nts HEMOGLOBIN A1c (test code = 4548-4) 6.2 % Delfino OrtaLIPID [id number] 00:00:00* Test Item Value Reference Range Interpretation Comme nts CHOLESTEROL, TOTAL (test cod e = 2093-3) 215 mg/dL HDL CHOLESTEROL (test code = 2085-9) 123 mg/dL TRIGLYCERIDES (test code = 2571-8) 70 mg/dL LDL-CHOLESTEROL (test code = 86022-0) 77 mg/dL(calc) CHOL/HDLC RATIO (test code = 9830-1) 1.7 (calc) NON HDL CHOLESTEROL (test co de = 84890-0) 92 mg/dL(calc) Delfino OrtaCBC (INCLUDES DIFF/PLT)2024-06-04 00:00:00* [...] cells/uL ABSOLUTE BAND NEUTROPHILS (test code = 70245-0) DNR cells/uL ABSOLUTE METAMYELOCYTES (yohannes t code = 40424-3) DNR cells/uL ABSOLUTE MYELOCYTES (test code = 70812-1) DNR cells/uL ABSOLUTE PROMYELOCYTES (test code = 20844-5) DNR cells/uL ABSOLUTE LYMPHOCYTES (test code = 731-0) 1003 cells/uL ABSOLUTE MONOCYTES (test cod e = 742-7) 410 cells/uL ABSOLUTE EOSINOPHILS (test code = 711-2) 29 cells/uL ABSOLUTE BASOPHILS (test cod e = 704-7) 51 cells/uL ABSOLUTE BLASTS (test code = 24060-2) DNR cells/uL ABSOLUTE NUCLEATED RBC (test code = 37334-9) DNR cells/uL NEUTROPHILS (test code = 770-8) 73.8 % BAND NEUTROPHILS (test code = 764-1) DNR % METAMYELOCYTES (test code = 740-1) DNR % MYELOCYTES (test code = 749-2) DNR % PROMYELOCYTES (test code = 783-1) DNR % LYMPHOCYTES (test code = 736-9) 17.6 % REACTIVE LYMPHOCYTES (test code = 86603-2) DNR % MONOCYTES (test code = 5905-5) 7.2 % EOSINOPHILS (test code = 713-8) 0.5 % BASOPHILS (test code = 706-2) 0.9 % BLASTS (test code = 709-6) DNR % NUCLEATED RBC (test code = 31665-6) DNR /100WBC COMMENT(S) (test code = 8251-1) DNR Delfino F AustinPTH, INTACT (ICMA) AND IONIZED [id number] 00:00:00* Test Item Value Reference Range Interpretation Comme nts PARATHYROID HORMONE, INTACT (test code = 2731-8) 71 pg/mL CALCIUM (test code = 36903-1) 11.1 mg/dL CALCIUM, IONIZED (test code = 38642-2) 5.9 mg/dL Delfino Schumacher AustinPHOSPHATE ( PHOSPHORUS)2024-06-04 00:00:00* Test Item Value Reference Range Interpretation Comme nts PHOSPHATE ( PHOSPHORUS) (t est code = 2777-1) 2.6 mg/dL Delfino OrtaHCV RNA, QUANTITATIVE REAL TIME [id number] 00:00:00* Test Item Value Reference Range Interpretation Comme nts HCV RNA, QUANTITATIVE REAL TIME PCR (test code = 27939-3) <15 NOT DETECTED IU/mL HCV RNA, QUANTITATIVE REAL TIME PCR (test code = 28632-8) <1.18 NOT DETECTED LogIU/mL Delfino OrtaLYMPHOCYTE SUBSET PANEL [id number] 00:00:00* Test Item Value Reference Range Interpretation Comme nts % CD4 (test code = 8123-2) 23 % ABSOLUTE CD4+ CELLS (test co de = 97692-7) 212 cells/uL % CD8 (test code = 8101-8) 57 % ABSOLUTE CD8+ CELLS (test co de = 14850-5) 534 cells/uL CD4/CD8 RATIO (test code = 51092-4) 0.40 ABSOLUTE LYMPHOCYTES (test c ode = 731-0) 943 cells/uL COMMENT(S) (test code = 8251-1) DNR Delfino OrtaCOMPREHENSIVE METABOLIC [id number] 00:00:00* Test Item Value Reference Range Interpretation Comme nts GLUCOSE (test code = 2345-7) 96 mg/dL UREA NITROGEN (BUN) (test code = 3094-0) 18 mg/dL CREATININE (test code = 2160-0) 1.21 mg/dL EGFR (test code = 82876-7) 51 mL/min/1.73m2 BUN/CREATININE RATIO (test code = 3097-3) 15 (calc) SODIUM (test code = 2951-2) 143 mmol/L POTASSIUM (test code = 2823-3) 4.2 mmol/L CHLORIDE (test code = 2075-0) 110 mmol/L CARBON DIOXIDE (test code = 8-9) 22 mmol/L CALCIUM (test code = 37499-5) 11.1 mg/dL PROTEIN, TOTAL (test code = 2885-2) 8.8 g/dL ALBUMIN (test code = 1751-7) 4.5 g/dL GLOBULIN (test code = 85932-1) 4.3 g/dL(calc) ALBUMIN/GLOBULIN RATIO (test code = 1759-0) 1.0 (calc) BILIRUBIN, TOTAL (test code = 1975-2) 0.8 mg/dL ALKALINE PHOSPHATASE (test code = 6768-6) 85 U/L AST (test code = 1920-8) 21 U/L ALT (test code = 1742-6) 14 U/L Delfino OrtaHEMOGLOBIN [id number] 00:00:00* Test Item Value Reference Range Interpretation Comme carlito HEMOGLOBIN A1c (test code = 4548-4) 6.2 % Delfino OrtaLIPID [id number] 00:00:00* Test Item Value Reference Range Interpretation Comme nts CHOLESTEROL, TOTAL (test cod e = 2093-3) 215 mg/dL HDL CHOLESTEROL (test code = 2085-9) 123 mg/dL TRIGLYCERIDES (test code = 2571-8) 70 mg/dL LDL-CHOLESTEROL (test code = 12712-4) 77 mg/dL(calc) CHOL/HDLC RATIO (test code = 9830-1) 1.7 (calc) NON HDL CHOLESTEROL (test co de = 94289-2) 92 mg/dL(calc) Delfino Schumacher [facility] (INCLUDES DIFF/PLT)2024-06-04 00:00:00* Test Item Value Reference [...] cells/uL ABSOLUTE BAND NEUTROPHILS (test code = 32672-6) DNR cells/uL ABSOLUTE METAMYELOCYTES (yohannes t code = 57358-1) DNR cells/uL ABSOLUTE MYELOCYTES (test code = 76081-0) DNR cells/uL ABSOLUTE PROMYELOCYTES (test code = 99965-6) DNR cells/uL ABSOLUTE LYMPHOCYTES (test code = 731-0) 1003 cells/uL ABSOLUTE MONOCYTES (test cod e = 742-7) 410 cells/uL ABSOLUTE EOSINOPHILS (test code = 711-2) 29 cells/uL ABSOLUTE BASOPHILS (test cod e = 704-7) 51 cells/uL ABSOLUTE BLASTS (test code = 52549-7) DNR cells/uL ABSOLUTE NUCLEATED RBC (test code = 13070-3) DNR cells/uL NEUTROPHILS (test code = 770-8) 73.8 % BAND NEUTROPHILS (test code = 764-1) DNR % METAMYELOCYTES (test code = 740-1) DNR % MYELOCYTES (test code = 749-2) DNR % PROMYELOCYTES (test code = 783-1) DNR % LYMPHOCYTES (test code = 736-9) 17.6 % REACTIVE LYMPHOCYTES (test code = 15895-5) DNR % MONOCYTES (test code = 5905-5) 7.2 % EOSINOPHILS (test code = 713-8) 0.5 % BASOPHILS (test code = 706-2) 0.9 % BLASTS (test code = 709-6) DNR % NUCLEATED RBC (test code = 78416-1) DNR /100WBC COMMENT(S) (test code = 8251-1) DNR Delfino OrtaPTH, INTACT (ICMA) AND IONIZED [id number] 00:00:00* Test Item Value Reference Range Interpretation Comme carlito PARATHYROID HORMONE, INTACT (test code = 2731-8) 71 pg/mL CALCIUM (test code = 85503-3) 11.1 mg/dL CALCIUM, IONIZED (test code = 53632-1) 5.9 mg/dL Delfino Schumacher AustinPHOSPHATE ( PHOSPHORUS)2024-06-04 00:00:00* Test Item Value Reference Range Interpretation Comme nts PHOSPHATE ( PHOSPHORUS) (t est code = 2777-1) 2.6 mg/dL Delfino OrtaHCV RNA, QUANTITATIVE REAL TIME [id number] 00:00:00* Test Item Value Reference Range Interpretation Comme nts HCV RNA, QUANTITATIVE REAL TIME PCR (test code = 24642-8) <15 NOT DETECTED IU/mL HCV RNA, QUANTITATIVE REAL TIME PCR (test code = 03348-3) <1.18 NOT DETECTED LogIU/mL Delfino OrtaLYMPHOCYTE SUBSET PANEL 00:00:00* Test Item Value Reference Range Interpretation Comme nts % CD4 (test code = 8123-2) 23 % ABSOLUTE CD4+ CELLS (test co de = 39529-9) 212 cells/uL % CD8 (test code = 8101-8) 57 % ABSOLUTE CD8+ CELLS (test co de = 22977-3) 534 cells/uL CD4/CD8 RATIO (test code = 25714-3) 0.40 ABSOLUTE LYMPHOCYTES (test c ode = 731-0) 943 cells/uL COMMENT(S) (test code = 8251-1) DNR Delfino OrtaCOMPREHENSIVE METABOLIC [id number] 00:00:00* Test Item Value Reference Range Interpretation Comme nts GLUCOSE (test code = 2345-7) 96 mg/dL UREA NITROGEN (BUN) (test code = 3094-0) 18 mg/dL CREATININE (test code = 2160-0) 1.21 mg/dL EGFR (test code = 47944-8) 51 mL/min/1.73m2 BUN/CREATININE RATIO (test code = 3097-3) 15 (calc) SODIUM (test code = 2951-2) 143 mmol/L POTASSIUM (test code = 2823-3) 4.2 mmol/L CHLORIDE (test code = 2075-0) 110 mmol/L CARBON DIOXIDE (test code = 2027-9) 22 mmol/L CALCIUM (test code = 77002-3) 11.1 mg/dL PROTEIN, TOTAL (test code = 2885-2) 8.8 g/dL ALBUMIN (test code = 1751-7) 4.5 g/dL GLOBULIN (test code = 52412-4) 4.3 g/dL(calc) ALBUMIN/GLOBULIN RATIO (test code = 1759-0) 1.0 (calc) BILIRUBIN, TOTAL (test code = 1975-2) 0.8 mg/dL ALKALINE PHOSPHATASE (test code = 6768-6) 85 U/L AST (test code = 1920-8) 21 U/L ALT (test code = 1742-6) 14 U/L Delfino OrtaHEMOGLOBIN [id number] 00:00:00* Test Item Value Reference Range Interpretation Comme [facility] HEMOGLOBIN A1c (test code = 4548-4) 6.2 % Delfino OrtaLIPID [id number] 00:00:00* Test Item Value Reference Range Interpretation Comme [facility] CHOLESTEROL, TOTAL (test cod e = 2093-3) 215 mg/dL HDL CHOLESTEROL (test code = 2085-9) 123 mg/dL TRIGLYCERIDES (test code = 2571-8) 70 mg/dL LDL-CHOLESTEROL (test code = 69804-3) 77 mg/dL(calc) CHOL/HDLC RATIO (test code = 9830-1) 1.7 (calc) NON HDL CHOLESTEROL (test co de = 09541-6) 92 mg/dL(calc) Delfino OrtaCBC (INCLUDES DIFF/PLT)2024-06-04 00:00:00* Test Item Value Reference Range Interpretation Comme [facility] WHITE BLOOD CELL COUNT (test code = [...] cells/uL ABSOLUTE BAND NEUTROPHILS (test code = 33678-3) DNR cells/uL ABSOLUTE METAMYELOCYTES (yohannes t code = 52204-1) DNR cells/uL ABSOLUTE MYELOCYTES (test code = 14016-0) DNR cells/uL ABSOLUTE PROMYELOCYTES (test code = 06485-8) DNR cells/uL ABSOLUTE LYMPHOCYTES (test code = 731-0) 1003 cells/uL ABSOLUTE MONOCYTES (test cod e = 742-7) 410 cells/uL ABSOLUTE EOSINOPHILS (test code = 711-2) 29 cells/uL ABSOLUTE BASOPHILS (test cod e = 704-7) 51 cells/uL ABSOLUTE BLASTS (test code = 97950-0) DNR cells/uL ABSOLUTE NUCLEATED RBC (test code = 29779-9) DNR cells/uL NEUTROPHILS (test code = 770-8) 73.8 % BAND NEUTROPHILS (test code = 764-1) DNR % METAMYELOCYTES (test code = 740-1) DNR % MYELOCYTES (test code = 749-2) DNR % PROMYELOCYTES (test code = 783-1) DNR % LYMPHOCYTES (test code = 736-9) 17.6 % REACTIVE LYMPHOCYTES (test code = 31089-1) DNR % MONOCYTES (test code = 5905-5) 7.2 % EOSINOPHILS (test code = 713-8) 0.5 % BASOPHILS (test code = 706-2) 0.9 % BLASTS (test code = 709-6) DNR % NUCLEATED RBC (test code = 35097-6) DNR /100WBC COMMENT(S) (test code = 8251-1) DNR Delfino OrtaPTH, INTACT (ICMA) AND IONIZED [id number] 00:00:00* Test Item Value Reference Range Interpretation Comme nts PARATHYROID HORMONE, INTACT (test code = 2731-8) 71 pg/mL CALCIUM (test code = 92294-0) 11.1 mg/dL CALCIUM, IONIZED (test code = 26785-3) 5.9 mg/dL Delfino Schumacher AustinPHOSPHATE ( PHOSPHORUS)2024-06-04 00:00:00* Test Item Value Reference Range Interpretation Comme nts PHOSPHATE ( PHOSPHORUS) (t est code = 2777-1) 2.6 mg/dL Delfino OrtaHCV RNA, QUANTITATIVE REAL TIME [id number] 00:00:00* Test Item Value Reference Range Interpretation Comme nts HCV RNA, QUANTITATIVE REAL TIME PCR (test code = 02225-6) <15 NOT DETECTED IU/mL HCV RNA, QUANTITATIVE REAL TIME PCR (test code = 87336-5) <1.18 NOT DETECTED LogIU/mL Delfino OrtaLYMPHOCYTE SUBSET PANEL 00:00:00* Test Item Value Reference Range Interpretation Comme nts % CD4 (test code = 8123-2) 23 % ABSOLUTE CD4+ CELLS (test co de = 84569-4) 212 cells/uL % CD8 (test code = 8101-8) 57 % ABSOLUTE CD8+ CELLS (test co de = 54660-4) 534 cells/uL CD4/CD8 RATIO (test code = 06404-2) 0.40 ABSOLUTE LYMPHOCYTES (test c ode = 731-0) 943 cells/uL COMMENT(S) (test code = 8251-1) DNR Delfino OrtaCOMPREHENSIVE METABOLIC [id number] 00:00:00* Test Item Value Reference Range Interpretation Comme nts GLUCOSE (test code = 2345-7) 96 mg/dL UREA NITROGEN (BUN) (test code = 3094-0) 18 mg/dL CREATININE (test code = 2160-0) 1.21 mg/dL EGFR (test code = 80743-1) 51 mL/min/1.73m2 BUN/CREATININE RATIO (test code = 3097-3) 15 (calc) SODIUM (test code = 2951-2) 143 mmol/L POTASSIUM (test code = 2823-3) 4.2 mmol/L CHLORIDE (test code = 2075-0) 110 mmol/L CARBON DIOXIDE (test code = 2027-9) 22 mmol/L CALCIUM (test code = 11024-3) 11.1 mg/dL PROTEIN, TOTAL (test code = 2885-2) 8.8 g/dL ALBUMIN (test code = 1751-7) 4.5 g/dL GLOBULIN (test code = 21446-8) 4.3 g/dL(calc) ALBUMIN/GLOBULIN RATIO (test code = 1759-0) 1.0 (calc) BILIRUBIN, TOTAL (test code = 1975-2) 0.8 mg/dL ALKALINE PHOSPHATASE (test code = 6768-6) 85 U/L AST (test code = 1920-8) 21 U/L ALT (test code = 1742-6) 14 U/L Delfino OrtaHEMOGLOBIN [id number] 00:00:00* Test Item Value Reference Range Interpretation Comme [facility] HEMOGLOBIN A1c (test code = 4548-4) 6.2 % Delfino OrtaLIPID [id number] 00:00:00* Test Item Value Reference Range Interpretation Comme [facility] CHOLESTEROL, TOTAL (test cod e = 3-3) 215 mg/dL HDL CHOLESTEROL (test code = 2084-9) 123 mg/dL TRIGLYCERIDES (test code = 2571-8) 70 mg/dL LDL-CHOLESTEROL (test code = 64540-0) 77 mg/dL(calc) CHOL/HDLC RATIO (test code = 9830-1) 1.7 (calc) NON HDL CHOLESTEROL (test co de = 40507-6) 92 mg/dL(calc) Delfino OrtaCBC (INCLUDES DIFF/PLT)2024-06-04 00:00:00* [...] cells/uL ABSOLUTE BAND NEUTROPHILS (test code = 17337-5) DNR cells/uL ABSOLUTE METAMYELOCYTES (yohannes t code = 99571-3) DNR cells/uL ABSOLUTE MYELOCYTES (test code = 28590-0) DNR cells/uL ABSOLUTE PROMYELOCYTES (test code = 04926-9) DNR cells/uL ABSOLUTE LYMPHOCYTES (test code = 731-0) 1003 cells/uL ABSOLUTE MONOCYTES (test cod e = 742-7) 410 cells/uL ABSOLUTE EOSINOPHILS (test code = 711-2) 29 cells/uL ABSOLUTE BASOPHILS (test cod e = 704-7) 51 cells/uL ABSOLUTE BLASTS (test code = 71884-5) DNR cells/uL ABSOLUTE NUCLEATED RBC (test code = 54835-8) DNR cells/uL NEUTROPHILS (test code = 770-8) 73.8 % BAND NEUTROPHILS (test code = 764-1) DNR % METAMYELOCYTES (test code = 740-1) DNR % MYELOCYTES (test code = 749-2) DNR % PROMYELOCYTES (test code = 783-1) DNR % LYMPHOCYTES (test code = 736-9) 17.6 % REACTIVE LYMPHOCYTES (test code = 35985-7) DNR % MONOCYTES (test code = 5905-5) 7.2 % EOSINOPHILS (test code = 713-8) 0.5 % BASOPHILS (test code = 706-2) 0.9 % BLASTS (test code = 709-6) DNR % NUCLEATED RBC (test code = 80848-9) DNR /100WBC COMMENT(S) (test code = 8251-1) DNR Delfino F AustinPTH, INTACT (ICMA) AND IONIZED [id number] 00:00:00* Test Item Value Reference Range Interpretation Comme nts PARATHYROID HORMONE, INTACT (test code = 2731-8) 71 pg/mL CALCIUM (test code = 24919-3) 11.1 mg/dL CALCIUM, IONIZED (test code = 29088-5) 5.9 mg/dL Delfino OrtaPHOSPHATE ( PHOSPHORUS)2024-06-04 00:00:00* Test Item Value Reference Range Interpretation Comme nts PHOSPHATE ( PHOSPHORUS) (t est code = 2777-1) 2.6 mg/dL Delfino OrtaHCV RNA, QUANTITATIVE REAL TIME [id number] 00:00:00* Test Item Value Reference Range Interpretation Comme [facility] HCV RNA, QUANTITATIVE REAL TIME PCR (test code = 94204-2) <15 NOT DETECTED IU/mL HCV RNA, QUANTITATIVE REAL TIME PCR (test code = 79857-6) <1.18 NOT DETECTED LogIU/mL Delfino OrtaLYMPHOCYTE SUBSET PANEL 00:00:00* Test Item Value Reference Range Interpretation Comme [facility] % CD4 (test code = 8123-2) 23 % ABSOLUTE CD4+ CELLS (test co de = 31043-9) 212 cells/uL % CD8 (test code = 8101-8) 57 % ABSOLUTE CD8+ CELLS (test co de = 83868-9) 534 cells/uL CD4/CD8 RATIO (test code = 87217-6) 0.40 ABSOLUTE LYMPHOCYTES (test c ode = 731-0) 943 cells/uL COMMENT(S) (test code = 8251-1) DNR Delfino OrtaCOMPREHENSIVE METABOLIC [id number] 00:00:00* Test Item Value Reference Range Interpretation Comme nts GLUCOSE (test code = 2345-7) 96 mg/dL UREA NITROGEN (BUN) (test code = 3094-0) 18 mg/dL CREATININE (test code = 2160-0) 1.21 mg/dL EGFR (test code = 55107-1) 51 mL/min/1.73m2 BUN/CREATININE RATIO (test code = 3097-3) 15 (calc) SODIUM (test code = 2951-2) 143 mmol/L POTASSIUM (test code = 2823-3) 4.2 mmol/L CHLORIDE (test code = 2075-0) 110 mmol/L CARBON DIOXIDE (test code = 2027-9) 22 mmol/L CALCIUM (test code = 77929-2) 11.1 mg/dL PROTEIN, TOTAL (test code = 2885-2) 8.8 g/dL ALBUMIN (test code = 1751-7) 4.5 g/dL GLOBULIN (test code = 01045-0) 4.3 g/dL(calc) ALBUMIN/GLOBULIN RATIO (test code = 1759-0) 1.0 (calc) BILIRUBIN, TOTAL (test code = 1975-2) 0.8 mg/dL ALKALINE PHOSPHATASE (test code = 6768-6) 85 U/L AST (test code = 1920-8) 21 U/L ALT (test code = 1742-6) 14 U/L Delfino OrtaHEMOGLOBIN [id number] 00:00:00* Test Item Value Reference Range Interpretation Comme [facility] HEMOGLOBIN A1c (test code = 4548-4) 6.2 % Delfino OrtaLIPID [id number] 00:00:00* Test Item Value Reference Range Interpretation Comme [facility] CHOLESTEROL, TOTAL (test cod e = 2093-3) 215 mg/dL HDL CHOLESTEROL (test code = 2085-9) 123 mg/dL TRIGLYCERIDES (test code = 2571-8) 70 mg/dL LDL-CHOLESTEROL (test code = 87932-7) 77 mg/dL(calc) CHOL/HDLC RATIO (test code = 9830-1) 1.7 (calc) NON HDL CHOLESTEROL (test co de = 87066-2) 92 mg/dL(calc) Delfino OrtaCBC (INCLUDES DIFF/PLT)2024-06-04 00:00:00* [...] cells/uL ABSOLUTE BAND NEUTROPHILS (test code = 43062-7) DNR cells/uL ABSOLUTE METAMYELOCYTES (yohannes t code = 62575-7) DNR cells/uL ABSOLUTE MYELOCYTES (test code = 03479-5) DNR cells/uL ABSOLUTE PROMYELOCYTES (test code = 98772-3) DNR cells/uL ABSOLUTE LYMPHOCYTES (test code = 731-0) 1003 cells/uL ABSOLUTE MONOCYTES (test cod e = 742-7) 410 cells/uL ABSOLUTE EOSINOPHILS (test code = 711-2) 29 cells/uL ABSOLUTE BASOPHILS (test cod e = 704-7) 51 cells/uL ABSOLUTE BLASTS (test code = 52063-5) DNR cells/uL ABSOLUTE NUCLEATED RBC (test code = 80198-3) DNR cells/uL NEUTROPHILS (test code = 770-8) 73.8 % BAND NEUTROPHILS (test code = 764-1) DNR % METAMYELOCYTES (test code = 740-1) DNR % MYELOCYTES (test code = 749-2) DNR % PROMYELOCYTES (test code = 783-1) DNR % LYMPHOCYTES (test code = 736-9) 17.6 % REACTIVE LYMPHOCYTES (test code = 57823-0) DNR % MONOCYTES (test code = 5905-5) 7.2 % EOSINOPHILS (test code = 713-8) 0.5 % BASOPHILS (test code = 706-2) 0.9 % BLASTS (test code = 709-6) DNR % NUCLEATED RBC (test code = 22663-4) DNR /100WBC COMMENT(S) (test code = 8251-1) DNR Delfino Endy AustinPTH, INTACT (ICMA) AND IONIZED [id number] 00:00:00* Test Item Value Reference Range Interpretation Comme nts PARATHYROID HORMONE, INTACT (test code = 2731-8) 71 pg/mL CALCIUM (test code = 88476-9) 11.1 mg/dL CALCIUM, IONIZED (test code = 40655-9) 5.9 mg/dL Delfino Endy AustinPHOSPHATE ( PHOSPHORUS)2024-06-04 00:00:00* Test Item Value Reference Range Interpretation Comme nts PHOSPHATE ( PHOSPHORUS) (t est code = 2777-1) 2.6 mg/dL Delfino OrtaHCV RNA, QUANTITATIVE REAL TIME [id number] 00:00:00* Test Item Value Reference Range Interpretation Comme nts HCV RNA, QUANTITATIVE REAL TIME PCR (test code = 22018-8) <15 NOT DETECTED IU/mL HCV RNA, QUANTITATIVE REAL TIME PCR (test code = 28275-3) <1.18 NOT DETECTED LogIU/mL Delfino OrtaLYMPHOCYTE SUBSET PANEL 00:00:00* Test Item Value Reference Range Interpretation Comme nts % CD4 (test code = 8123-2) 23 % ABSOLUTE CD4+ CELLS (test co de = 86626-7) 212 cells/uL % CD8 (test code = 8101-8) 57 % ABSOLUTE CD8+ CELLS (test co de = 54199-3) 534 cells/uL CD4/CD8 RATIO (test code = 76208-5) 0.40 ABSOLUTE LYMPHOCYTES (test c ode = 731-0) 943 cells/uL COMMENT(S) (test code = 8251-1) DNR Delfino OrtaCOMPREHENSIVE METABOLIC [id number] 00:00:00* Test Item Value Reference Range Interpretation Comme nts GLUCOSE (test code = 2345-7) 96 mg/dL UREA NITROGEN (BUN) (test code = 3094-0) 18 mg/dL CREATININE (test code = 2160-0) 1.21 mg/dL EGFR (test code = 62109-7) 51 mL/min/1.73m2 BUN/CREATININE RATIO (test code = 3097-3) 15 (calc) SODIUM (test code = 2951-2) 143 mmol/L POTASSIUM (test code = 2823-3) 4.2 mmol/L CHLORIDE (test code = 2075-0) 110 mmol/L CARBON DIOXIDE (test code = 2027-9) 22 mmol/L CALCIUM (test code = 09442-0) 11.1 mg/dL PROTEIN, TOTAL (test code = 2885-2) 8.8 g/dL ALBUMIN (test code = 1751-7) 4.5 g/dL GLOBULIN (test code = 42617-8) 4.3 g/dL(calc) ALBUMIN/GLOBULIN RATIO (test code = 1759-0) 1.0 (calc) BILIRUBIN, TOTAL (test code = 1975-2) 0.8 mg/dL ALKALINE PHOSPHATASE (test code = 6768-6) 85 U/L AST (test code = 1920-8) 21 U/L ALT (test code = 1742-6) 14 U/L Delfino OrtaHEMOGLOBIN [id number] 00:00:00* Test Item Value Reference Range Interpretation Comme nts HEMOGLOBIN A1c (test code = 4548-4) 6.2 % Delfino Schumacher AustinLIPID [id number] 00:00:00* Test Item Value Reference Range Interpretation Comme nts CHOLESTEROL, TOTAL (test cod e = 2093-3) 215 mg/dL HDL CHOLESTEROL (test code = 2085-9) 123 mg/dL TRIGLYCERIDES (test code = 2571-8) 70 mg/dL LDL-CHOLESTEROL (test code = 65560-2) 77 mg/dL(calc) CHOL/HDLC RATIO (test code = 9830-1) 1.7 (calc) NON HDL CHOLESTEROL (test co de = 96889-0) 92 mg/dL(calc) Delfino OrtaCBC (INCLUDES DIFF/PLT)2024-06-04 00:00:00* [...] cells/uL ABSOLUTE BAND NEUTROPHILS (test code = 07649-4) DNR cells/uL ABSOLUTE METAMYELOCYTES (yohannes t code = 57398-9) DNR cells/uL ABSOLUTE MYELOCYTES (test code = 59360-4) DNR cells/uL ABSOLUTE PROMYELOCYTES (test code = 57130-9) DNR cells/uL ABSOLUTE LYMPHOCYTES (test code = 731-0) 1003 cells/uL ABSOLUTE MONOCYTES (test cod e = 742-7) 410 cells/uL ABSOLUTE EOSINOPHILS (test code = 711-2) 29 cells/uL ABSOLUTE BASOPHILS (test cod e = 704-7) 51 cells/uL ABSOLUTE BLASTS (test code = 66507-4) DNR cells/uL ABSOLUTE NUCLEATED RBC (test code = 29814-7) DNR cells/uL NEUTROPHILS (test code = 770-8) 73.8 % BAND NEUTROPHILS (test code = 764-1) DNR % METAMYELOCYTES (test code = 740-1) DNR % MYELOCYTES (test code = 749-2) DNR % PROMYELOCYTES (test code = 783-1) DNR % LYMPHOCYTES (test code = 736-9) 17.6 % REACTIVE LYMPHOCYTES (test code = 76692-1) DNR % MONOCYTES (test code = 5905-5) 7.2 % EOSINOPHILS (test code = 713-8) 0.5 % BASOPHILS (test code = 706-2) 0.9 % BLASTS (test code = 709-6) DNR % NUCLEATED RBC (test code = 86644-0) DNR /100WBC COMMENT(S) (test code = 8251-1) DNR Delfino Endy YouPTH, INTACT (ICMA) AND IONIZED [id number] 00:00:00* Test Item Value Reference Range Interpretation Comme nts PARATHYROID HORMONE, INTACT (test code = 2731-8) 71 pg/mL CALCIUM (test code = 25506-1) 11.1 mg/dL CALCIUM, IONIZED (test code = 33533-1) 5.9 mg/dL Delfino Endy AustinPHOSPHATE ( PHOSPHORUS)2024-06-04 00:00:00* Test Item Value Reference Range Interpretation Comme nts PHOSPHATE ( PHOSPHORUS) (t est code = 2777-1) 2.6 mg/dL Delfino Endy YouHCV RNA, QUANTITATIVE REAL TIME [id number] 00:00:00* Test Item Value Reference Range Interpretation Comme nts HCV RNA, QUANTITATIVE REAL TIME PCR (test code = 96304-2) <15 NOT DETECTED IU/mL HCV RNA, QUANTITATIVE REAL TIME PCR (test code = 36868-1) <1.18 NOT DETECTED LogIU/mL Delfino OrtaLYMPHOCYTE SUBSET PANEL [id number] 00:00:00* Test Item Value Reference Range Interpretation Comme nts % CD4 (test code = 8123-2) 23 % ABSOLUTE CD4+ CELLS (test co de = 75894-8) 212 cells/uL % CD8 (test code = 8101-8) 57 % ABSOLUTE CD8+ CELLS (test co de = 20456-2) 534 cells/uL CD4/CD8 RATIO (test code = 47251-9) 0.40 ABSOLUTE LYMPHOCYTES (test c ode = 731-0) 943 cells/uL COMMENT(S) (test code = 8251-1) DNR Delfino OrtaCOMPREHENSIVE METABOLIC [id number] 00:00:00* Test Item Value Reference Range Interpretation Comme nts GLUCOSE (test code = 2345-7) 96 mg/dL UREA NITROGEN (BUN) (test code = 3094-0) 18 mg/dL CREATININE (test code = 2160-0) 1.21 mg/dL EGFR (test code = 85656-4) 51 mL/min/1.73m2 BUN/CREATININE RATIO (test code = 3097-3) 15 (calc) SODIUM (test code = 2951-2) 143 mmol/L POTASSIUM (test code = 2823-3) 4.2 mmol/L CHLORIDE (test code = 2075-0) 110 mmol/L CARBON DIOXIDE (test code = 8-9) 22 mmol/L CALCIUM (test code = 82903-8) 11.1 mg/dL PROTEIN, TOTAL (test code = 2885-2) 8.8 g/dL ALBUMIN (test code = 1751-7) 4.5 g/dL GLOBULIN (test code = 76727-1) 4.3 g/dL(calc) ALBUMIN/GLOBULIN RATIO (test code = 1759-0) 1.0 (calc) BILIRUBIN, TOTAL (test code = 1975-2) 0.8 mg/dL ALKALINE PHOSPHATASE (test code = 6768-6) 85 U/L AST (test code = 1920-8) 21 U/L ALT (test code = 1742-6) 14 U/L Delfino OrtaHEMOGLOBIN [id number] 00:00:00* Test Item Value Reference Range Interpretation Comme nts HEMOGLOBIN A1c (test code = 4548-4) 6.2 % Delfino OrtaLIPID [id number] 00:00:00* Test Item Value Reference Range Interpretation Comme nts CHOLESTEROL, TOTAL (test cod e = 2093-3) 215 mg/dL HDL CHOLESTEROL (test code = 2085-9) 123 mg/dL TRIGLYCERIDES (test code = 2571-8) 70 mg/dL LDL-CHOLESTEROL (test code = 97388-4) 77 mg/dL(calc) CHOL/HDLC RATIO (test code = 9830-1) 1.7 (calc) NON HDL CHOLESTEROL (test co de = 75197-2) 92 mg/dL(calc) Delfino OrtaCBC (INCLUDES DIFF/PLT)2024-06-04 00:00:00* [...] cells/uL ABSOLUTE BAND NEUTROPHILS (test code = 90358-3) DNR cells/uL ABSOLUTE METAMYELOCYTES (yohannes t code = 63283-2) DNR cells/uL ABSOLUTE MYELOCYTES (test code = 67911-1) DNR cells/uL ABSOLUTE PROMYELOCYTES (test code = 70309-1) DNR cells/uL ABSOLUTE LYMPHOCYTES (test code = 731-0) 1003 cells/uL ABSOLUTE MONOCYTES (test cod e = 742-7) 410 cells/uL ABSOLUTE EOSINOPHILS (test code = 711-2) 29 cells/uL ABSOLUTE BASOPHILS (test cod e = 704-7) 51 cells/uL ABSOLUTE BLASTS (test code = 07080-4) DNR cells/uL ABSOLUTE NUCLEATED RBC (test code = 46454-7) DNR cells/uL NEUTROPHILS (test code = 770-8) 73.8 % BAND NEUTROPHILS (test code = 764-1) DNR % METAMYELOCYTES (test code = 740-1) DNR % MYELOCYTES (test code = 749-2) DNR % PROMYELOCYTES (test code = 783-1) DNR % LYMPHOCYTES (test code = 736-9) 17.6 % REACTIVE LYMPHOCYTES (test code = 85452-9) DNR % MONOCYTES (test code = 5905-5) 7.2 % EOSINOPHILS (test code = 713-8) 0.5 % BASOPHILS (test code = 706-2) 0.9 % BLASTS (test code = 709-6) DNR % NUCLEATED RBC (test code = 06174-1) DNR /100WBC COMMENT(S) (test code = 8251-1) DNR Delfino OrtaPTH, INTACT (ICMA) AND IONIZED [id number] 00:00:00* Test Item Value Reference Range Interpretation Comme nts PARATHYROID HORMONE, INTACT (test code = 2731-8) 71 pg/mL CALCIUM (test code = 73110-8) 11.1 mg/dL CALCIUM, IONIZED (test code = 96222-8) 5.9 mg/dL Delfino Schumacher AustinPHOSPHATE ( PHOSPHORUS)2024-06-04 00:00:00* Test Item Value Reference Range Interpretation Comme nts PHOSPHATE ( PHOSPHORUS) (t est code = 2777-1) 2.6 mg/dL Delfino OrtaHCV RNA, QUANTITATIVE REAL TIME [id number] 00:00:00* Test Item Value Reference Range Interpretation Comme nts HCV RNA, QUANTITATIVE REAL TIME PCR (test code = 09246-9) <15 NOT DETECTED IU/mL HCV RNA, QUANTITATIVE REAL TIME PCR (test code = 31163-1) <1.18 NOT DETECTED LogIU/mL Delfino OrtaLYMPHOCYTE SUBSET PANEL [id number] 00:00:00* Test Item Value Reference Range Interpretation Comme nts % CD4 (test code = 8123-2) 23 % ABSOLUTE CD4+ CELLS (test co de = 70302-6) 212 cells/uL % CD8 (test code = 8101-8) 57 % ABSOLUTE CD8+ CELLS (test co de = 85466-8) 534 cells/uL CD4/CD8 RATIO (test code = 57761-1) 0.40 ABSOLUTE LYMPHOCYTES (test c ode = 731-0) 943 cells/uL COMMENT(S) (test code = 8251-1) DNR Delfino OrtaCOMPREHENSIVE METABOLIC [id number] 00:00:00* Test Item Value Reference Range Interpretation Comme nts GLUCOSE (test code = 2345-7) 96 mg/dL UREA NITROGEN (BUN) (test code = 3094-0) 18 mg/dL CREATININE (test code = 2160-0) 1.21 mg/dL EGFR (test code = 63181-7) 51 mL/min/1.73m2 BUN/CREATININE RATIO (test code = 3097-3) 15 (calc) SODIUM (test code = 2951-2) 143 mmol/L POTASSIUM (test code = 2823-3) 4.2 mmol/L CHLORIDE (test code = 2075-0) 110 mmol/L CARBON DIOXIDE (test code = 2027-9) 22 mmol/L CALCIUM (test code = 54847-7) 11.1 mg/dL PROTEIN, TOTAL (test code = 2885-2) 8.8 g/dL ALBUMIN (test code = 1751-7) 4.5 g/dL GLOBULIN (test code = 64844-8) 4.3 g/dL(calc) ALBUMIN/GLOBULIN RATIO (test code = 1759-0) 1.0 (calc) BILIRUBIN, TOTAL (test code = 1975-2) 0.8 mg/dL ALKALINE PHOSPHATASE (test code = 6768-6) 85 U/L AST (test code = 1920-8) 21 U/L ALT (test code = 1742-6) 14 U/L Delfino OrtaHEMOGLOBIN [id number] 00:00:00* Test Item Value Reference Range Interpretation Comme nts HEMOGLOBIN A1c (test code = 4548-4) 6.2 % Delfino OrtaLIPID [id number] 00:00:00* Test Item Value Reference Range Interpretation Comme nts CHOLESTEROL, TOTAL (test cod e = 2093-3) 215 mg/dL HDL CHOLESTEROL (test code = 2085-9) 123 mg/dL TRIGLYCERIDES (test code = 2571-8) 70 mg/dL LDL-CHOLESTEROL (test code = 41262-5) 77 mg/dL(calc) CHOL/HDLC RATIO (test code = 9830-1) 1.7 (calc) NON HDL CHOLESTEROL (test co de = 02200-1) 92 mg/dL(calc) Delfino Schumacher [facility] (INCLUDES DIFF/PLT)2024-06-04 00:00:00* Test Item Value Reference [...] cells/uL ABSOLUTE BAND NEUTROPHILS (test code = 76250-8) DNR cells/uL ABSOLUTE METAMYELOCYTES (yohannes t code = 92056-5) DNR cells/uL ABSOLUTE MYELOCYTES (test code = 63294-5) DNR cells/uL ABSOLUTE PROMYELOCYTES (test code = 92822-8) DNR cells/uL ABSOLUTE LYMPHOCYTES (test code = 731-0) 1003 cells/uL ABSOLUTE MONOCYTES (test cod e = 742-7) 410 cells/uL ABSOLUTE EOSINOPHILS (test code = 711-2) 29 cells/uL ABSOLUTE BASOPHILS (test cod e = 704-7) 51 cells/uL ABSOLUTE BLASTS (test code = 27909-3) DNR cells/uL ABSOLUTE NUCLEATED RBC (test code = 12595-8) DNR cells/uL NEUTROPHILS (test code = 770-8) 73.8 % BAND NEUTROPHILS (test code = 764-1) DNR % METAMYELOCYTES (test code = 740-1) DNR % MYELOCYTES (test code = 749-2) DNR % PROMYELOCYTES (test code = 783-1) DNR % LYMPHOCYTES (test code = 736-9) 17.6 % REACTIVE LYMPHOCYTES (test code = 67211-8) DNR % MONOCYTES (test code = 5905-5) 7.2 % EOSINOPHILS (test code = 713-8) 0.5 % BASOPHILS (test code = 706-2) 0.9 % BLASTS (test code = 709-6) DNR % NUCLEATED RBC (test code = 61625-3) DNR /100WBC COMMENT(S) (test code = 8251-1) DNR Delfino OrtaPTH, INTACT (ICMA) AND IONIZED [id number] 00:00:00* Test Item Value Reference Range Interpretation Comme carlito PARATHYROID HORMONE, INTACT (test code = 2731-8) 71 pg/mL CALCIUM (test code = 32492-2) 11.1 mg/dL CALCIUM, IONIZED (test code = 51459-5) 5.9 mg/dL Delfino OrtaPHOSPHATE ( PHOSPHORUS)2024-06-04 00:00:00* Test Item Value Reference Range Interpretation Comme nts PHOSPHATE ( PHOSPHORUS) (t est code = 2777-1) 2.6 mg/dL Delfino OrtaHCV RNA, QUANTITATIVE REAL TIME [id number] 00:00:00* Test Item Value Reference Range Interpretation Comme nts HCV RNA, QUANTITATIVE REAL TIME PCR (test code = 10756-4) <15 NOT DETECTED IU/mL HCV RNA, QUANTITATIVE REAL TIME PCR (test code = 18250-5) <1.18 NOT DETECTED LogIU/mL Delfino OrtaLYMPHOCYTE SUBSET PANEL [id number] 00:00:00* Test Item Value Reference Range Interpretation Comme nts % CD4 (test code = 8123-2) 23 % ABSOLUTE CD4+ CELLS (test co de = 55212-3) 212 cells/uL % CD8 (test code = 8101-8) 57 % ABSOLUTE CD8+ CELLS (test co de = 14356-2) 534 cells/uL CD4/CD8 RATIO (test code = 19194-1) 0.40 ABSOLUTE LYMPHOCYTES (test c ode = 731-0) 943 cells/uL COMMENT(S) (test code = 8251-1) DNR Delfino Schumacher [facility] WITH [id number] 23:59:18* Test Item Value Reference Range Interpretation [...] 33.9 g/dL 31.6-35.1 RDW-SD (test code = 97878-9) 50.2 fL 39.0-49.9 H RDW-CV (test code = 788-0) 13.9 % 12.0-15.5 PLT (test code = 777-3) 224 166-358 MPV (test code = 91918-9) 10.8 fL 9.5-12.9 NRBC/100 WBC (test code = 3828376850) 0 0.0-10.0 NRBC x10^3 (test code = 0095741255) See_Comment [Automated messa ge] The system which generated this result transmitted reference range: 10*3/?L. The reference range was not used to interpret this result as normal/abnormal. GRAN MAT (NEUT) % (test code = 770-8) 90.5 % IMM GRAN % (test code = 0942537857) 0.3 % LYMPH % (test code = 736-9) 7.1 % MONO % (test code = 5905-5) 1.2 % EOS % (test code = 713-8) 0 % BASO % (test code = 706-2) 0.9 % GRAN MAT x10^3(ANC) (test code = 3328990340) 2.93 10*3/uL 1.88-7.09 IMM GRAN x10^3 (test code = 0897042174) 0.00-0.06 LYMPH x10^3 (test code = 731-0) 0.23 10*3/uL 1.32-3.29 L MONO x10^3 (test code = 742-7) 0.04 10*3/uL 0.33-0.92 L EOS x10^3 (test code = 711-2) 0.03-0.39 L BASO x10^3 (test code = 704-7) 0.03 10*3/uL 0.01-0.07 Lab Interpretation (test code = 80024-4) [id number] 23:47:58* Test Item Value Reference Range Interpretation Comme nts NT-proBNP (test code = 90968-9) 1750 pg/mL <=125 H GARRY (test code = GARRY) Positive: Heart Failure Likely Lab Interpretation (test code = 54723-3) [facility] CenterL[facility] Whole [id number] 23:35:25* Test Item Value Reference Range Interpretation Comme nts LACTIC ACID (test code = 8067131864) 1.78 mmol/L 0.50-2.20 Lab Interpretation (test cod e = 83413-8) [facility]150[facility] (ALB,T.PRO,BILI T,BU/BC,ALT,AST,ALK PHOS)2024-06-03 23:35:15* Test Item Value Reference Range Interpretation Comme nts TOTAL BILI (test code = 6693654763) 0.6 mg/dL 0.1-1.1 BILI UNCON (test code = 0360726289) 0.5 mg/dL 0.1-1.1 BILI CONJ (test code = 4375655773) 0 mg/dL 0.0-0.3 T PROTEIN (test code = 3331585582) 8.7 g/dL 6.3-8.2 H ALBUMIN (test code = 1046405584) 4.4 g/dL 3.5-5.0 ALK PHOS (test code = 1852560085) 86 U/L 34-122 ALTv (test code = 1742-6) 19 U/L 5-35 AST(SGOT) (test code = 2335992061) 28 U/L 13-40 Lab Interpretation (test cod e = 41763-3) [facility] Center[facility]esium[facility] 23:35:15* Test Item Value Reference Range Interpretation Comme nts MAGNESIUM (test code = 6031688099) 1.4 mg/dL 1.7-2.4 L Lab Interpretation (test cod e = 57278-3) [facility] (NA, K, CL, CO2, GLUCOSE, BUN, CREATININE, CA)2024-06-03 23:35:14* Test Item Value Reference Range Interpretation Comme nts NA (test code = 6096562902) 142 mmol/L 135-145 K (test code = 2174380184) 4.1 mmol/L 3.5-5.0 CL (test code = 0697128573) 112 mmol/L 98-108 H CO2 TOTAL (test code = 2570925277) 20 mmol/L 23-31 L AGAP (test code = 2439002264) 10 2-16 BUN (test code = 9170343244) 25 mg/dL 7-23 H GLUCOSE (test code = 1459978524) 128 mg/dL 70-110 H CREATININE (test code = 2160-0) 1.3 mg/dL 0.50-1.04 H CALCIUM (test code = 9347623198) 10.4 mg/dL 8.6-10.6 eGFR (test code = 91973-8) 46.9 mL/min/1.73m2 CKD-EPI eGFR (2020). Assuming creatinine has been stable day-to-day for at least three months, the eGFR indicates Category G3a (45 - 59 mL/min/1.73 m2) Lab Interpretation (test code = 44473-1) [facility] [id number] 06:36:53* Test Item Value Reference Range Interpretation Comme nts GLUCOSE (test code = 2217) 87 MG/DL 70-99 BUN (test code = 2208) 19 MG/DL 8-23 CREATININE (test code = 2214) 1.49 MG/DL 0.60-1.30 H eGFR (2020 CKD-EPI) (test co de = 80195) 40 ML/MIN/1.73 >60 L CALC BUN/CREAT (test code = 2234) 13 RATIO 6-28 SODIUM (test code = 2230) 143 MEQ/L 133-146 POTASSIUM (test code = 2227) 3.8 MEQ/L 3.5-5.4 CHLORIDE (test code = 2214) 107 MEQ/L 95-107 CARBON DIOXIDE (test code = 2205) 21 MEQ/L 19-31 CALCIUM (test code = 2208) 10.7 MG/DL 8.5-10.5 H PROTEIN, TOTAL (test code = 2228) 8.3 G/DL 6.1-8.3 ALBUMIN (test code = 2200) 4.4 G/DL 3.5-5.2 CALC GLOBULIN (test code = 2239) 3.9 G/DL 1.9-3.7 H CALC A/G RATIO (test code = 2233) 1.1 RATIO 1.0-2.6 BILIRUBIN, TOTAL (test code = 2206) 0.4 MG/DL <=1.2 ALKALINE PHOSPHATASE (test code = 2203) 109 U/L 40-136 AST (test code = 2217) 31 U/L 9-40 ALT (test code = 2218) 25 U/L 5-40 LIPID [id number] 06:36:53* Test Item Value Reference Range Interpretation Comme nts CHOLESTEROL (test code = 2209) 196 MG/DL <200 TRIGLYCERIDES (test code = 2231) 66 MG/DL <150 HDL CHOLESTEROL (test code = 2219) 109 MG/DL >39 CALC LDL CHOL (test code = 2236) 72 MG/DL <100 NOTE: CALCULATED LDL IS BASED ON CLOTILDE-STARKEY METHOD WHICHINCLUDES ADJUSTABLE TRIGLYCERIDE:VLDL CHOLESTEROL RATIO.THIS FACTOR VARIES BY MEASURED TRIGLYCERIDE AND NON-HDLCHOLESTEROL CONCENTRATIONS WITH INCREASED CALCULATED LDL SEENIN HIGHER TRIGLYCERIDE OR LOWER NON-HDL SPECIMENS. FOR MOREINFORMATION, SEE CLIENT ANNOUNCEMENT AT [email or web address] RISK RATIO LDL/HDL (test code = 2237) 0.66 RATIO <3.22 HEMOGLOBIN [id number] 04:59:33* Test Item Value Reference Range Interpretation Comme nts HEMOGLOBIN A1c (test code = 95109) 5.9 % 4.2-5.6 H [employer] GUIDELINES FOR HGB A1C: [...] PERFORMED AT [facility] 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 [place] NUMBER [id number] [facility] [place] [place]. [id number] CBC W/AUTO DIFF WITH [id number] 03:30:09* Test Item Value Reference Range Interpretation [...] = 1065) 0.0 /100 WBC'S See_Comment [[employer]] The system which generated this result transmitted [...] 0.00-0.10 ABS NUCLEATED RBCS (test code = 22520) 0.00 K/UL 0.00-0.11 COMPREHENSIVE METABOLIC [id number] 00:00:00* Test Item Value Reference Range Interpretation Comme nts GLUCOSE (test code = 2217) 87 MG/DL BUN (test code = 2208) 19 MG/DL CREATININE (test code = 2214) 1.49 MG/DL eGFR (2020 CKD-EPI) (test co de = 04000) 40 ML/MIN/1.73 CALC BUN/CREAT (test code = [...] = 2219) 25 U/L Delfino OrtaCBC W/AUTO [id number] 00:00:00* Test Item Value Reference Range Interpretation [...] ABS NUCLEATED RBCS (test cod e = 10033) 0.00 K/UL Delfino OrtaLIPID [id number] 00:00:00* Test Item Value Reference Range Interpretation Comme nts CHOLESTEROL (test code = 2210) 196 MG/DL TRIGLYCERIDES (test code = 2232) 66 MG/DL HDL CHOLESTEROL (test code = 2220) 109 MG/DL CALC LDL CHOL (test code = 2237) 72 MG/DL RISK RATIO LDL/HDL (test cod e = 2238) 0.66 RATIO Delfino OrtaHEMOGLOBIN [id number] 00:00:00* Test Item Value Reference Range Interpretation Comme nts HEMOGLOBIN A1c (test code = 43520) 5.9 % Delfino OrtaCOMPREHENSIVE METABOLIC [id number] 00:00:00* Test Item Value Reference Range Interpretation Comme nts GLUCOSE (test code = 2217) 87 MG/DL BUN (test code = 2208) 19 MG/DL CREATININE (test code = 2214) 1.49 MG/DL eGFR (2020 CKD-EPI) (test co de = 20205) 40 ML/MIN/1.73 CALC BUN/CREAT (test code = [...] code = 2219) 25 U/L Delfino Schumacher [facility] W/AUTO [id number] 00:00:00* Test Item Value Reference Range Interpretation [...] ABS NUCLEATED RBCS (test cod e = 34543) 0.00 K/UL Delfino OrtaLIPID [id number] 00:00:00* Test Item Value Reference Range Interpretation Comme nts CHOLESTEROL (test code = 2210) 196 MG/DL TRIGLYCERIDES (test code = 2232) 66 MG/DL HDL CHOLESTEROL (test code = 2220) 109 MG/DL CALC LDL CHOL (test code = 2237) 72 MG/DL RISK RATIO LDL/HDL (test cod e = 2238) 0.66 RATIO Delfino OrtaHEMOGLOBIN [id number] 00:00:00* Test Item Value Reference Range Interpretation Comme nts HEMOGLOBIN A1c (test code = 12700) 5.9 % Delfino OrtaCOMPREHENSIVE METABOLIC [id number] 00:00:00* Test Item Value Reference Range Interpretation Comme nts GLUCOSE (test code = 2217) 87 MG/DL BUN (test code = 2208) 19 MG/DL CREATININE (test code = 2214) 1.49 MG/DL eGFR (2020 CKD-EPI) (test co de = 93472) 40 ML/MIN/1.73 CALC BUN/CREAT (test code = [...] = 2219) 25 U/L Delfino OrtaCBC W/AUTO [id number] 00:00:00* Test Item Value Reference Range Interpretation [...] ABS NUCLEATED RBCS (test cod e = 07006) 0.00 K/UL Delfino OrtaLIPID [id number] 00:00:00* Test Item Value Reference Range Interpretation Comme nts CHOLESTEROL (test code = 2210) 196 MG/DL TRIGLYCERIDES (test code = 2232) 66 MG/DL HDL CHOLESTEROL (test code = 2220) 109 MG/DL CALC LDL CHOL (test code = 2237) 72 MG/DL RISK RATIO LDL/HDL (test cod e = 2238) 0.66 RATIO Delfino OrtaHEMOGLOBIN [id number] 00:00:00* Test Item Value Reference Range Interpretation Comme nts HEMOGLOBIN A1c (test code = 61241) 5.9 % Delfino OrtaCOMPREHENSIVE METABOLIC [id number] 00:00:00* Test Item Value Reference Range Interpretation Comme nts GLUCOSE (test code = 2217) 87 MG/DL BUN (test code = 2208) 19 MG/DL CREATININE (test code = 2214) 1.49 MG/DL eGFR (2020 CKD-EPI) (test co de = 41518) 40 ML/MIN/1.73 CALC BUN/CREAT (test code = [...] code = 2219) 25 U/L Delfino Schumacher [facility] W/AUTO [id number] 00:00:00* Test Item Value Reference Range Interpretation [...] ABS NUCLEATED RBCS (test cod e = 61771) 0.00 K/UL Delfino OrtaLIPID [id number] 00:00:00* Test Item Value Reference Range Interpretation Comme nts CHOLESTEROL (test code = 2210) 196 MG/DL TRIGLYCERIDES (test code = 2232) 66 MG/DL HDL CHOLESTEROL (test code = 2220) 109 MG/DL CALC LDL CHOL (test code = 2237) 72 MG/DL RISK RATIO LDL/HDL (test cod e = 2238) 0.66 RATIO Delfino OrtaHEMOGLOBIN [id number] 00:00:00* Test Item Value Reference Range Interpretation Comme nts HEMOGLOBIN A1c (test code = 18488) 5.9 % Delfino OrtaCOMPREHENSIVE METABOLIC [id number] 00:00:00* Test Item Value Reference Range Interpretation Comme nts GLUCOSE (test code = 2217) 87 MG/DL BUN (test code = 2208) 19 MG/DL CREATININE (test code = 2214) 1.49 MG/DL eGFR (2020 CKD-EPI) (test co de = 42998) 40 ML/MIN/1.73 CALC BUN/CREAT (test code = [...] = 2219) 25 U/L Delfino OrtaCBC W/AUTO [id number] 00:00:00* Test Item Value Reference Range Interpretation [...] ABS NUCLEATED RBCS (test cod e = 32237) 0.00 K/UL Delfino OrtaLIPID [id number] 00:00:00* Test Item Value Reference Range Interpretation Comme nts CHOLESTEROL (test code = 2210) 196 MG/DL TRIGLYCERIDES (test code = 2232) 66 MG/DL HDL CHOLESTEROL (test code = 2220) 109 MG/DL CALC LDL CHOL (test code = 2237) 72 MG/DL RISK RATIO LDL/HDL (test cod e = 2238) 0.66 RATIO Delfino OrtaHEMOGLOBIN [id number] 00:00:00* Test Item Value Reference Range Interpretation Comme nts HEMOGLOBIN A1c (test code = 08354) 5.9 % Delfino OrtaCOMPREHENSIVE METABOLIC [id number] 00:00:00* Test Item Value Reference Range Interpretation Comme nts GLUCOSE (test code = 2217) 87 MG/DL BUN (test code = 2208) 19 MG/DL CREATININE (test code = 2214) 1.49 MG/DL eGFR (2020 CKD-EPI) (test co de = 93869) 40 ML/MIN/1.73 CALC BUN/CREAT (test code = [...] = 2219) 25 U/L Delfino OrtaCBC W/AUTO [id number] 00:00:00* Test Item Value Reference Range Interpretation Comme [facility] WBC (test code = 1001) 4.2 K/UL [...] ABS NUCLEATED RBCS (test cod e = 40911) 0.00 K/UL Delfino OrtaLIPID [id number] 00:00:00* Test Item Value Reference Range Interpretation Comme nts CHOLESTEROL (test code = 2210) 196 MG/DL TRIGLYCERIDES (test code = 2232) 66 MG/DL HDL CHOLESTEROL (test code = 2220) 109 MG/DL CALC LDL CHOL (test code = 2237) 72 MG/DL RISK RATIO LDL/HDL (test cod e = 2238) 0.66 RATIO Delfino OrtaHEMOGLOBIN [id number] 00:00:00* Test Item Value Reference Range Interpretation Comme nts HEMOGLOBIN A1c (test code = 38598) 5.9 % Delfino OrtaCOMPREHENSIVE METABOLIC [id number] 00:00:00* Test Item Value Reference Range Interpretation Comme nts GLUCOSE (test code = 2217) 87 MG/DL BUN (test code = 2208) 19 MG/DL CREATININE (test code = 2214) 1.49 MG/DL eGFR (2020 CKD-EPI) (test co de = 34191) 40 ML/MIN/1.73 CALC BUN/CREAT (test code = [...] = 2219) 25 U/L Delfino OrtaCBC W/AUTO [id number] 00:00:00* Test Item Value Reference Range Interpretation [...] ABS NUCLEATED RBCS (test cod e = 99756) 0.00 K/UL Delfino OrtaLIPID [id number] 00:00:00* Test Item Value Reference Range Interpretation Comme nts CHOLESTEROL (test code = 2210) 196 MG/DL TRIGLYCERIDES (test code = 2232) 66 MG/DL HDL CHOLESTEROL (test code = 2220) 109 MG/DL CALC LDL CHOL (test code = 2237) 72 MG/DL RISK RATIO LDL/HDL (test cod e = 2238) 0.66 RATIO Delfino OrtaHEMOGLOBIN [id number] 00:00:00* Test Item Value Reference Range Interpretation Comme nts HEMOGLOBIN A1c (test code = 12036) 5.9 % Delfino OrtaCOMPREHENSIVE METABOLIC [id number] 00:00:00* Test Item Value Reference Range Interpretation Comme nts GLUCOSE (test code = 2217) 87 MG/DL BUN (test code = 2208) 19 MG/DL CREATININE (test code = 2214) 1.49 MG/DL eGFR (2020 CKD-EPI) (test co de = 57620) 40 ML/MIN/1.73 CALC BUN/CREAT (test code = [...] = 2219) 25 U/L Delfino OrtaCBC W/AUTO [id number] 00:00:00* Test Item Value Reference Range Interpretation [...] ABS NUCLEATED RBCS (test cod e = 52376) 0.00 K/UL Delfino Schumacher KinmundyLIPID [id number] 00:00:00* Test Item Value Reference Range Interpretation Comme nts CHOLESTEROL (test code = 2210) 196 MG/DL TRIGLYCERIDES (test code = 2232) 66 MG/DL HDL CHOLESTEROL (test code = 2220) 109 MG/DL CALC LDL CHOL (test code = 2237) 72 MG/DL RISK RATIO LDL/HDL (test cod e = 2238) 0.66 RATIO Delfino OrtaHEMOGLOBIN [id number] 00:00:00* Test Item Value Reference Range Interpretation Comme nts HEMOGLOBIN A1c (test code = 82604) 5.9 % Delfino OrtaCOMPREHENSIVE METABOLIC [id number] 00:00:00* Test Item Value Reference Range Interpretation Comme nts GLUCOSE (test code = 2217) 87 MG/DL BUN (test code = 2208) 19 MG/DL CREATININE (test code = 2214) 1.49 MG/DL eGFR (2020 CKD-EPI) (test co de = 91089) 40 ML/MIN/1.73 CALC BUN/CREAT (test code = [...] code = 2219) 25 U/L Delfino Schumacher YouCBC W/AUTO [id number] 00:00:00* Test Item Value Reference Range Interpretation [...] ABS NUCLEATED RBCS (test cod e = 23568) 0.00 K/UL Delfino Endy YouLIPID [id number] 00:00:00* Test Item Value Reference Range Interpretation Comme nts CHOLESTEROL (test code = 2210) 196 MG/DL TRIGLYCERIDES (test code = 2232) 66 MG/DL HDL CHOLESTEROL (test code = 2220) 109 MG/DL CALC LDL CHOL (test code = 2237) 72 MG/DL RISK RATIO LDL/HDL (test cod e = 2238) 0.66 RATIO Delfino OrtaHEMOGLOBIN [id number] 00:00:00* Test Item Value Reference Range Interpretation Comme nts HEMOGLOBIN A1c (test code = 70633) 5.9 % Delfino OrtaCOMPREHENSIVE METABOLIC [id number] 00:00:00* Test Item Value Reference Range Interpretation Comme nts GLUCOSE (test code = 2217) 87 MG/DL BUN (test code = 2208) 19 MG/DL CREATININE (test code = 2214) 1.49 MG/DL eGFR (2020 CKD-EPI) (test co de = 08687) 40 ML/MIN/1.73 CALC BUN/CREAT (test code = [...] = 2219) 25 U/L Delfino OrtaCBC W/AUTO [id number] 00:00:00* Test Item Value Reference Range Interpretation [...] ABS NUCLEATED RBCS (test cod e = 35032) 0.00 K/UL Delfino OrtaLIPID [id number] 00:00:00* Test Item Value Reference Range Interpretation Comme nts CHOLESTEROL (test code = 2210) 196 MG/DL TRIGLYCERIDES (test code = 2232) 66 MG/DL HDL CHOLESTEROL (test code = 2220) 109 MG/DL CALC LDL CHOL (test code = 2237) 72 MG/DL RISK RATIO LDL/HDL (test cod e = 2238) 0.66 RATIO Delfino OrtaHEMOGLOBIN [id number] 00:00:00* Test Item Value Reference Range Interpretation Comme nts HEMOGLOBIN A1c (test code = 06225) 5.9 % Delfino OrtaCOMPREHENSIVE METABOLIC [id number] 00:00:00* Test Item Value Reference Range Interpretation Comme nts GLUCOSE (test code = 2217) 87 MG/DL BUN (test code = 2208) 19 MG/DL CREATININE (test code = 2214) 1.49 MG/DL eGFR (2020 CKD-EPI) (test co de = 70767) 40 ML/MIN/1.73 CALC BUN/CREAT (test code = [...] code = 2219) 25 U/L Delfino Schumacher [facility] W/AUTO [id number] 00:00:00* Test Item Value Reference Range Interpretation [...] ABS NUCLEATED RBCS (test cod e = 71910) 0.00 K/UL Delfino OrtaLIPID [id number] 00:00:00* Test Item Value Reference Range Interpretation Comme nts CHOLESTEROL (test code = 2210) 196 MG/DL TRIGLYCERIDES (test code = 2232) 66 MG/DL HDL CHOLESTEROL (test code = 2220) 109 MG/DL CALC LDL CHOL (test code = 2237) 72 MG/DL RISK RATIO LDL/HDL (test cod e = 2238) 0.66 RATIO Delfino OrtaHEMOGLOBIN [id number] 00:00:00* Test Item Value Reference Range Interpretation Comme nts HEMOGLOBIN A1c (test code = 93298) 5.9 % Delfino OrtaCOMPREHENSIVE METABOLIC [id number] 00:00:00* Test Item Value Reference Range Interpretation Comme nts GLUCOSE (test code = 2217) 87 MG/DL BUN (test code = 2208) 19 MG/DL CREATININE (test code = 2214) 1.49 MG/DL eGFR (2020 CKD-EPI) (test co de = 84384) 40 ML/MIN/1.73 CALC BUN/CREAT (test code = [...] = 2219) 25 U/L Delfino OrtaCBC W/AUTO [id number] 00:00:00* Test Item Value Reference Range Interpretation [...] ABS NUCLEATED RBCS (test cod e = 57480) 0.00 K/UL Delfino Schumacher YouLIPID [id number] 00:00:00* Test Item Value Reference Range Interpretation Comme nts CHOLESTEROL (test code = 2210) 196 MG/DL TRIGLYCERIDES (test code = 2232) 66 MG/DL HDL CHOLESTEROL (test code = 2220) 109 MG/DL CALC LDL CHOL (test code = 2237) 72 MG/DL RISK RATIO LDL/HDL (test cod e = 2238) 0.66 RATIO Delfino OrtaHEMOGLOBIN [id number] 00:00:00* Test Item Value Reference Range Interpretation Comme nts HEMOGLOBIN A1c (test code = 21727) 5.9 % Delfino Schumacher YouCOMPREHENSIVE METABOLIC [id number] 00:00:00* Test Item Value Reference Range Interpretation Comme nts GLUCOSE (test code = 2217) 87 MG/DL BUN (test code = 2208) 19 MG/DL CREATININE (test code = 2214) 1.49 MG/DL eGFR (2020 CKD-EPI) (test co de = 46793) 40 ML/MIN/1.73 CALC BUN/CREAT (test code = [...] code = 2219) 25 U/L Delfino Schumacher [facility] W/AUTO [id number] 00:00:00* Test Item Value Reference Range Interpretation [...] ABS NUCLEATED RBCS (test cod e = 96625) 0.00 K/UL Delfino OrtaLIPID [id number] 00:00:00* Test Item Value Reference Range Interpretation Comme nts CHOLESTEROL (test code = 2210) 196 MG/DL TRIGLYCERIDES (test code = 2232) 66 MG/DL HDL CHOLESTEROL (test code = 2220) 109 MG/DL CALC LDL CHOL (test code = 2237) 72 MG/DL RISK RATIO LDL/HDL (test cod e = 2238) 0.66 RATIO Delfino OrtaHEMOGLOBIN [id number] 00:00:00* Test Item Value Reference Range Interpretation Comme nts HEMOGLOBIN A1c (test code = 15243) 5.9 % Delfino OrtaCOMPREHENSIVE METABOLIC [id number] 00:00:00* Test Item Value Reference Range Interpretation Comme nts GLUCOSE (test code = 2217) 87 MG/DL BUN (test code = 2208) 19 MG/DL CREATININE (test code = 2214) 1.49 MG/DL eGFR (2020 CKD-EPI) (test co de = 54236) 40 ML/MIN/1.73 CALC BUN/CREAT (test code = [...] = 2219) 25 U/L Delfino OrtaCBC W/AUTO [id number] 00:00:00* Test Item Value Reference Range Interpretation [...] ABS NUCLEATED RBCS (test cod e = 22367) 0.00 K/UL Delfino OrtaLIPID [id number] 00:00:00* Test Item Value Reference Range Interpretation Comme nts CHOLESTEROL (test code = 2210) 196 MG/DL TRIGLYCERIDES (test code = 2232) 66 MG/DL HDL CHOLESTEROL (test code = 2220) 109 MG/DL CALC LDL CHOL (test code = 2237) 72 MG/DL RISK RATIO LDL/HDL (test cod e = 2238) 0.66 RATIO Delfino OrtaHEMOGLOBIN [id number] 00:00:00* Test Item Value Reference Range Interpretation Comme nts HEMOGLOBIN A1c (test code = 66909) 5.9 % Delfino OrtaCOMPREHENSIVE METABOLIC [id number] 00:00:00* Test Item Value Reference Range Interpretation Comme nts GLUCOSE (test code = 2217) 87 MG/DL BUN (test code = 2208) 19 MG/DL CREATININE (test code = 2214) 1.49 MG/DL eGFR (2020 CKD-EPI) (test co de = 74002) 40 ML/MIN/1.73 CALC BUN/CREAT (test code = [...] = 2219) 25 U/L Delfino OrtaCBC W/AUTO [id number] 00:00:00* Test Item Value Reference Range Interpretation [...] ABS NUCLEATED RBCS (test cod e = 63788) 0.00 K/UL Delfino OrtaLIPID [id number] 00:00:00* Test Item Value Reference Range Interpretation Comme nts CHOLESTEROL (test code = 2210) 196 MG/DL TRIGLYCERIDES (test code = 2232) 66 MG/DL HDL CHOLESTEROL (test code = 2220) 109 MG/DL CALC LDL CHOL (test code = 2237) 72 MG/DL RISK RATIO LDL/HDL (test cod e = 2238) 0.66 RATIO Delfino OrtaHEMOGLOBIN [id number] 00:00:00* Test Item Value Reference Range Interpretation Comme nts HEMOGLOBIN A1c (test code = 95060) 5.9 % Delfino OrtaCOMPREHENSIVE METABOLIC [id number] 00:00:00* Test Item Value Reference Range Interpretation Comme nts GLUCOSE (test code = 2217) 87 MG/DL BUN (test code = 2208) 19 MG/DL CREATININE (test code = 2214) 1.49 MG/DL eGFR (2020 CKD-EPI) (test co de = 26467) 40 ML/MIN/1.73 CALC BUN/CREAT (test code = [...] = 2219) 25 U/L Delfino OrtaCBC W/AUTO [id number] 00:00:00* Test Item Value Reference Range Interpretation [...] ABS NUCLEATED RBCS (test cod e = 23971) 0.00 K/UL Delfino OrtaLIPID [id number] 00:00:00* Test Item Value Reference Range Interpretation Comme nts CHOLESTEROL (test code = 2210) 196 MG/DL TRIGLYCERIDES (test code = 2232) 66 MG/DL HDL CHOLESTEROL (test code = 2220) 109 MG/DL CALC LDL CHOL (test code = 2237) 72 MG/DL RISK RATIO LDL/HDL (test cod e = 2238) 0.66 RATIO Delfino OrtaHEMOGLOBIN [id number] 00:00:00* Test Item Value Reference Range Interpretation Comme nts HEMOGLOBIN A1c (test code = 43206) 5.9 % Delfino OrtaCOMPREHENSIVE METABOLIC [id number] 00:00:00* Test Item Value Reference Range Interpretation Comme nts GLUCOSE (test code = 2217) 87 MG/DL BUN (test code = 2208) 19 MG/DL CREATININE (test code = 2214) 1.49 MG/DL eGFR (2020 CKD-EPI) (test co de = 26418) 40 ML/MIN/1.73 CALC BUN/CREAT (test code = [...] = 2219) 25 U/L Delfino OrtaCBC W/AUTO [id number] 00:00:00* Test Item Value Reference Range Interpretation [...] ABS NUCLEATED RBCS (test cod e = 64148) 0.00 K/UL Delfino OrtaLIPID [id number] 00:00:00* Test Item Value Reference Range Interpretation Comme nts CHOLESTEROL (test code = 2210) 196 MG/DL TRIGLYCERIDES (test code = 2232) 66 MG/DL HDL CHOLESTEROL (test code = 2220) 109 MG/DL CALC LDL CHOL (test code = 2237) 72 MG/DL RISK RATIO LDL/HDL (test cod e = 2238) 0.66 RATIO Delfino OrtaHEMOGLOBIN [id number] 00:00:00* Test Item Value Reference Range Interpretation Comme nts HEMOGLOBIN A1c (test code = 74605) 5.9 % Delfino OrtaCOMPREHENSIVE METABOLIC [id number] 00:00:00* Test Item Value Reference Range Interpretation Comme nts GLUCOSE (test code = 2217) 87 MG/DL BUN (test code = 2208) 19 MG/DL CREATININE (test code = 2214) 1.49 MG/DL eGFR (2020 CKD-EPI) (test co de = 48066) 40 ML/MIN/1.73 CALC BUN/CREAT (test code = [...] (test code = 2219) 25 U/[facility] [id number] 00:00:00* Test Item Value Reference Range Interpretation [...] ABS NUCLEATED RBCS (test cod e = 41230) 0.00 K/UL Delfino OrtaLIPID [id number] 00:00:00* Test Item Value Reference Range Interpretation Comme nts CHOLESTEROL (test code = 2210) 196 MG/DL TRIGLYCERIDES (test code = 2232) 66 MG/DL HDL CHOLESTEROL (test code = 2220) 109 MG/DL CALC LDL CHOL (test code = 2237) 72 MG/DL RISK RATIO LDL/HDL (test cod e = 2238) 0.66 RATIO Delfino OrtaHEMOGLOBIN [id number] 00:00:00* Test Item Value Reference Range Interpretation Comme nts HEMOGLOBIN A1c (test code = 31886) 5.9 % Delfino OrtaCOMPREHENSIVE METABOLIC [id number] 00:00:00* Test Item Value Reference Range Interpretation Comme nts GLUCOSE (test code = 2217) 87 MG/DL BUN (test code = 2208) 19 MG/DL CREATININE (test code = 2214) 1.49 MG/DL eGFR (2020 CKD-EPI) (test co de = 11542) 40 ML/MIN/1.73 CALC BUN/CREAT (test code = [...] = 2219) 25 U/L Delfino OrtaCBC W/AUTO [id number] 00:00:00* Test Item Value Reference Range Interpretation [...] ABS NUCLEATED RBCS (test cod e = 24459) 0.00 K/UL Delfino Endy YouLIPID [id number] 00:00:00* Test Item Value Reference Range Interpretation Comme nts CHOLESTEROL (test code = 2210) 196 MG/DL TRIGLYCERIDES (test code = 2232) 66 MG/DL HDL CHOLESTEROL (test code = 2220) 109 MG/DL CALC LDL CHOL (test code = 2237) 72 MG/DL RISK RATIO LDL/HDL (test cod e = 2238) 0.66 RATIO Delfino OrtaHEMOGLOBIN [id number] 00:00:00* Test Item Value Reference Range Interpretation Comme nts HEMOGLOBIN A1c (test code = 59778) 5.9 % Delfino Schumacher YouCOMPREHENSIVE METABOLIC [id number] 00:00:00* Test Item Value Reference Range Interpretation Comme nts GLUCOSE (test code = 2217) 87 MG/DL BUN (test code = 2208) 19 MG/DL CREATININE (test code = 2214) 1.49 MG/DL eGFR (2020 CKD-EPI) (test co de = 11664) 40 ML/MIN/1.73 CALC BUN/CREAT (test code = [...] code = 2219) 25 U/L Delfino Schumacher [facility] W/AUTO [id number] 00:00:00* Test Item Value Reference Range Interpretation [...] ABS NUCLEATED RBCS (test cod e = 17038) 0.00 K/UL Delfino OrtaLIPID [id number] 00:00:00* Test Item Value Reference Range Interpretation Comme nts CHOLESTEROL (test code = 2210) 196 MG/DL TRIGLYCERIDES (test code = 2232) 66 MG/DL HDL CHOLESTEROL (test code = 2220) 109 MG/DL CALC LDL CHOL (test code = 2237) 72 MG/DL RISK RATIO LDL/HDL (test cod e = 2238) 0.66 RATIO Delfino OrtaHEMOGLOBIN [id number] 00:00:00* Test Item Value Reference Range Interpretation Comme nts HEMOGLOBIN A1c (test code = 01664) 5.9 % Delfino OrtaCOMPREHENSIVE METABOLIC [id number] 00:00:00* Test Item Value Reference Range Interpretation Comme nts GLUCOSE (test code = 2217) 87 MG/DL BUN (test code = 2208) 19 MG/DL CREATININE (test code = 2214) 1.49 MG/DL eGFR (2020 CKD-EPI) (test co de = 72186) 40 ML/MIN/1.73 CALC BUN/CREAT (test code = [...] = 2219) 25 U/L Delfino OrtaCBC W/AUTO [id number] 00:00:00* Test Item Value Reference Range Interpretation [...] ABS NUCLEATED RBCS (test cod e = 64441) 0.00 K/UL Delfino Schumacher YouLIPID [id number] 00:00:00* Test Item Value Reference Range Interpretation Comme nts CHOLESTEROL (test code = 2210) 196 MG/DL TRIGLYCERIDES (test code = 2232) 66 MG/DL HDL CHOLESTEROL (test code = 2220) 109 MG/DL CALC LDL CHOL (test code = 2237) 72 MG/DL RISK RATIO LDL/HDL (test cod e = 2238) 0.66 RATIO Delfino OrtaHEMOGLOBIN [id number] 00:00:00* Test Item Value Reference Range Interpretation Comme nts HEMOGLOBIN A1c (test code = 28867) 5.9 % Delfino F YouHIV-1 QUANT, [id number] 11:19:24* Test Item Value Reference Range Interpretation Comme nts HIV-1 VIRAL COPY (test code = 4141) TEST NOT PERFORMED COPIES/ML Unable to perform testing, specimen not received.Charges adjusted as applicable. HIV-1 VIRAL LOG (test code = 64156) TEST NOT PERFORMED LOG COPIES/ML Range of quantitatio n is 20-10,000,000 Copies/mL, (1.301-7.000log Copies/mL). Samples with HIV RNA detected below the limit ofquantitation are reported as <20 Copies/mL. Assay methodology ispolymerase chain reaction (PCR) using the [employer] 6800/8800system. The expected result is NOT DETECTED. For diagnostic use,please refer to laboratory test compendium. HIV-1 QUANT, [id number] 00:00:00* Test Item Value Reference Range Interpretation Comme nts HIV-1 VIRAL COPY (test code = 4141) TEST NOT PERFORMED COPIES/ML HIV-1 VIRAL LOG (test code = 61825) TEST NOT PERFORMED LOGCOPIES/ML Delfino F AustinHIV-1 QUANT, [id number] 00:00:00* Test Item Value Reference Range Interpretation Comme nts HIV-1 VIRAL COPY (test code = 4141) TEST NOT PERFORMED COPIES/ML HIV-1 VIRAL LOG (test code = 69670) TEST NOT PERFORMED LOGCOPIES/ML Delfino F AustinHIV-1 QUANT, [id number] 00:00:00* Test Item Value Reference Range Interpretation Comme nts HIV-1 VIRAL COPY (test code = 4141) TEST NOT PERFORMED COPIES/ML HIV-1 VIRAL LOG (test code = 08083) TEST NOT PERFORMED LOGCOPIES/ML Delfino F AustinHIV-1 QUANT, [id number] 00:00:00* Test Item Value Reference Range Interpretation Comme nts HIV-1 VIRAL COPY (test code = 4141) TEST NOT PERFORMED COPIES/ML HIV-1 VIRAL LOG (test code = 38363) TEST NOT PERFORMED LOGCOPIES/ML Delfino F AustinHIV-1 QUANT, [id number] 00:00:00* Test Item Value Reference Range Interpretation Comme nts HIV-1 VIRAL COPY (test code = 4141) TEST NOT PERFORMED COPIES/ML HIV-1 VIRAL LOG (test code = 42853) TEST NOT PERFORMED LOGCOPIES/ML Delfino F AustinHIV-1 QUANT, [id number] 00:00:00* Test Item Value Reference Range Interpretation Comme nts HIV-1 VIRAL COPY (test code = 4141) TEST NOT PERFORMED COPIES/ML HIV-1 VIRAL LOG (test code = 96273) TEST NOT PERFORMED LOGCOPIES/ML Delfino F AustinHIV-1 QUANT, [id number] 00:00:00* Test Item Value Reference Range Interpretation Comme nts HIV-1 VIRAL COPY (test code = 4141) TEST NOT PERFORMED COPIES/ML HIV-1 VIRAL LOG (test code = 90111) TEST NOT PERFORMED LOGCOPIES/ML Delfino F AustinHIV-1 QUANT, [id number] 00:00:00* Test Item Value Reference Range Interpretation Comme nts HIV-1 VIRAL COPY (test code = 4141) TEST NOT PERFORMED COPIES/ML HIV-1 VIRAL LOG (test code = 51604) TEST NOT PERFORMED LOGCOPIES/ML Delfino F AustinHIV-1 QUANT, [id number] 00:00:00* Test Item Value Reference Range Interpretation Comme nts HIV-1 VIRAL COPY (test code = 4141) TEST NOT PERFORMED COPIES/ML HIV-1 VIRAL LOG (test code = 98095) TEST NOT PERFORMED LOGCOPIES/ML Delfino F AustinHIV-1 QUANT, [id number] 00:00:00* Test Item Value Reference Range Interpretation Comme nts HIV-1 VIRAL COPY (test code = 4141) TEST NOT PERFORMED COPIES/ML HIV-1 VIRAL LOG (test code = 22669) TEST NOT PERFORMED LOGCOPIES/ML Delfino F AustinHIV-1 QUANT, [id number] 00:00:00* Test Item Value Reference Range Interpretation Comme nts HIV-1 VIRAL COPY (test code = 4141) TEST NOT PERFORMED COPIES/ML HIV-1 VIRAL LOG (test code = 81289) TEST NOT PERFORMED LOGCOPIES/ML Delfino F AustinHIV-1 QUANT, [id number] 00:00:00* Test Item Value Reference Range Interpretation Comme nts HIV-1 VIRAL COPY (test code = 4141) TEST NOT PERFORMED COPIES/ML HIV-1 VIRAL LOG (test code = 27992) TEST NOT PERFORMED LOGCOPIES/ML Delfino F AustinHIV-1 QUANT, [id number] 00:00:00* Test Item Value Reference Range Interpretation Comme nts HIV-1 VIRAL COPY (test code = 4141) TEST NOT PERFORMED COPIES/ML HIV-1 VIRAL LOG (test code = 59104) TEST NOT PERFORMED LOGCOPIES/ML Delfino F AustinHIV-1 QUANT, [id number] 00:00:00* Test Item Value Reference Range Interpretation Comme nts HIV-1 VIRAL COPY (test code = 4141) TEST NOT PERFORMED COPIES/ML HIV-1 VIRAL LOG (test code = 26644) TEST NOT PERFORMED LOGCOPIES/ML Delfino F AustinHIV-1 QUANT, [id number] 00:00:00* Test Item Value Reference Range Interpretation Comme nts HIV-1 VIRAL COPY (test code = 4141) TEST NOT PERFORMED COPIES/ML HIV-1 VIRAL LOG (test code = 99764) TEST NOT PERFORMED LOGCOPIES/ML Delfino F AustinHIV-1 QUANT, [id number] 00:00:00* Test Item Value Reference Range Interpretation Comme nts HIV-1 VIRAL COPY (test code = 4141) TEST NOT PERFORMED COPIES/ML HIV-1 VIRAL LOG (test code = 10154) TEST NOT PERFORMED LOGCOPIES/ML Delfino F AustinHIV-1 QUANT, [id number] 00:00:00* Test Item Value Reference Range Interpretation Comme nts HIV-1 VIRAL COPY (test code = 4141) TEST NOT PERFORMED COPIES/ML HIV-1 VIRAL LOG (test code = 30764) TEST NOT PERFORMED LOGCOPIES/ML Delfino F AustinHIV-1 QUANT, [id number] 00:00:00* Test Item Value Reference Range Interpretation Comme nts HIV-1 VIRAL COPY (test code = 4141) TEST NOT PERFORMED COPIES/ML HIV-1 VIRAL LOG (test code = 84772) TEST NOT PERFORMED LOGCOPIES/ML Delfino F AustinHIV-1 QUANT, [id number] 00:00:00* Test Item Value Reference Range Interpretation Comme nts HIV-1 VIRAL COPY (test code = 4141) TEST NOT PERFORMED COPIES/ML HIV-1 VIRAL LOG (test code = 30544) TEST NOT PERFORMED LOGCOPIES/ML Delfino F AustinHIV-1 QUANT, [id number] 00:00:00* Test Item Value Reference Range Interpretation Comme cralito HIV-1 VIRAL COPY (test code = 4141) TEST NOT PERFORMED COPIES/ML HIV-1 VIRAL LOG (test code = 27669) TEST NOT PERFORMED LOGCOPIES/ML Delfino OrtaHIV-1 QUANT, [id number] 00:00:00* Test Item Value Reference Range Interpretation Comme nts HIV-1 VIRAL COPY (test code = 4141) TEST NOT PERFORMED COPIES/ML HIV-1 VIRAL LOG (test code = 43107) TEST NOT PERFORMED LOGCOPIES/ML eDlfino Schumacher AustinHIV-1 QUANT, [id number] 00:00:00* Test Item Value Reference Range Interpretation Comme nts HIV-1 VIRAL COPY (test code = 4141) TEST NOT PERFORMED COPIES/ML HIV-1 VIRAL LOG (test code = 70424) TEST NOT PERFORMED LOGCOPIES/ML Delfino OrtaHIV-1 QUANT, [id number] 00:00:00* Test Item Value Reference Range Interpretation Comme nts HIV-1 VIRAL COPY (test code = 4141) TEST NOT PERFORMED COPIES/ML HIV-1 VIRAL LOG (test code = 68346) TEST NOT PERFORMED LOGCOPIES/ML Delfino OrtaCD4/CD8 LYMPHOCYTE [id number] 15:06:04* Test Item Value Reference Range Interpretation Comme nts ABSOLUTE LYMPHOCYTES (test code = 01647) 1180 PER UL 1212-2599 PERCENT CD4 (test code = 99185) 20.9 % 34.0-65.0 L ABSOLUTE CD4 (test code = 83697) 247 PER UL 520-1470 L PERCENT CD8 (test code = 26363) 56.8 % 13.0-38.0 H ABSOLUTE CD8 (test code = 70221) 670 PER UL 205-920 CD4/CD8 RATIO (test code = 36953) 0.37 0.92-3.41 L UNLESS OTHERWISE INDICATED, ALL TESTING PERFORMED AT [facility] [address] [place] [id number] [employer] ATTENDANT: ABBI SHORT M.D. CLIA NUMBER [id number] [place]. [id number] CD4/CD8 LYMPHOCYTE [id number] 00:00:00* Test Item Value Reference Range Interpretation Comme nts ABSOLUTE LYMPHOCYTES (test c ode = 44055) 1180 PERUL PERCENT CD4 (test code = 40656) 20.9 % ABSOLUTE CD4 (test code = 44408) 247 PERUL PERCENT CD8 (test code = 44615) 56.8 % ABSOLUTE CD8 (test code = 47300) 670 PERUL CD4/CD8 RATIO (test code = 85242) 0.37 Delfino Schumacher AustinCD4/CD8 LYMPHOCYTE [id number] 00:00:00* Test Item Value Reference Range Interpretation Comme nts ABSOLUTE LYMPHOCYTES (test c ode = 51719) 1180 PERUL PERCENT CD4 (test code = 74537) 20.9 % ABSOLUTE CD4 (test code = 92879) 247 PERUL PERCENT CD8 (test code = 34511) 56.8 % ABSOLUTE CD8 (test code = 18093) 670 PERUL CD4/CD8 RATIO (test code = 74579) 0.37 Delfino Schumacher AustinCD4/CD8 LYMPHOCYTE [id number] 00:00:00* Test Item Value Reference Range Interpretation Comme nts ABSOLUTE LYMPHOCYTES (test c ode = 03243) 1180 PERUL PERCENT CD4 (test code = 61141) 20.9 % ABSOLUTE CD4 (test code = 34556) 247 PERUL PERCENT CD8 (test code = 62655) 56.8 % ABSOLUTE CD8 (test code = 74307) 670 PERUL CD4/CD8 RATIO (test code = 94468) 0.37 Delfino Schumacher AustinCD4/CD8 LYMPHOCYTE [id number] 00:00:00* Test Item Value Reference Range Interpretation Comme nts ABSOLUTE LYMPHOCYTES (test c ode = 45390) 1180 PERUL PERCENT CD4 (test code = 05294) 20.9 % ABSOLUTE CD4 (test code = 31561) 247 PERUL PERCENT CD8 (test code = 15396) 56.8 % ABSOLUTE CD8 (test code = 63639) 670 PERUL CD4/CD8 RATIO (test code = 85493) 0.37 Delfino Schumacher AustinCD4/CD8 LYMPHOCYTE [id number] 00:00:00* Test Item Value Reference Range Interpretation Comme nts ABSOLUTE LYMPHOCYTES (test c ode = 84493) 1180 PERUL PERCENT CD4 (test code = 15154) 20.9 % ABSOLUTE CD4 (test code = 92730) 247 PERUL PERCENT CD8 (test code = 87190) 56.8 % ABSOLUTE CD8 (test code = 51212) 670 PERUL CD4/CD8 RATIO (test code = 92411) 0.37 Delfino Schumacher AustinCD4/CD8 LYMPHOCYTE [id number] 00:00:00* Test Item Value Reference Range Interpretation Comme nts ABSOLUTE LYMPHOCYTES (test c ode = 36360) 1180 PERUL PERCENT CD4 (test code = 40128) 20.9 % ABSOLUTE CD4 (test code = 66808) 247 PERUL PERCENT CD8 (test code = 37140) 56.8 % ABSOLUTE CD8 (test code = 32006) 670 PERUL CD4/CD8 RATIO (test code = 84284) 0.37 Delfino Schumacher AustinCD4/CD8 LYMPHOCYTE [id number] 00:00:00* Test Item Value Reference Range Interpretation Comme nts ABSOLUTE LYMPHOCYTES (test c ode = 73771) 1180 PERUL PERCENT CD4 (test code = 10810) 20.9 % ABSOLUTE CD4 (test code = 37677) 247 PERUL PERCENT CD8 (test code = 29926) 56.8 % ABSOLUTE CD8 (test code = 50248) 670 PERUL CD4/CD8 RATIO (test code = 83969) 0.37 Delfino Schumacher AustinCD4/CD8 LYMPHOCYTE [id number] 00:00:00* Test Item Value Reference Range Interpretation Comme nts ABSOLUTE LYMPHOCYTES (test c ode = 70660) 1180 PERUL PERCENT CD4 (test code = 98703) 20.9 % ABSOLUTE CD4 (test code = 80740) 247 PERUL PERCENT CD8 (test code = 66299) 56.8 % ABSOLUTE CD8 (test code = 50134) 670 PERUL CD4/CD8 RATIO (test code = 20095) 0.37 Delfino Schumacher AustinCD4/CD8 LYMPHOCYTE [id number] 00:00:00* Test Item Value Reference Range Interpretation Comme nts ABSOLUTE LYMPHOCYTES (test c ode = 51554) 1180 PERUL PERCENT CD4 (test code = 21190) 20.9 % ABSOLUTE CD4 (test code = 55699) 247 PERUL PERCENT CD8 (test code = 53381) 56.8 % ABSOLUTE CD8 (test code = 89829) 670 PERUL CD4/CD8 RATIO (test code = 51166) 0.37 Delfino Schumacher AustinCD4/CD8 LYMPHOCYTE [id number] 00:00:00* Test Item Value Reference Range Interpretation Comme nts ABSOLUTE LYMPHOCYTES (test c ode = 89148) 1180 PERUL PERCENT CD4 (test code = 97663) 20.9 % ABSOLUTE CD4 (test code = 30636) 247 PERUL PERCENT CD8 (test code = 80373) 56.8 % ABSOLUTE CD8 (test code = 07768) 670 PERUL CD4/CD8 RATIO (test code = 07581) 0.37 Delfino Schumacher AustinCD4/CD8 LYMPHOCYTE [id number] 00:00:00* Test Item Value Reference Range Interpretation Comme nts ABSOLUTE LYMPHOCYTES (test c ode = 72578) 1180 PERUL PERCENT CD4 (test code = 13533) 20.9 % ABSOLUTE CD4 (test code = 53639) 247 PERUL PERCENT CD8 (test code = 32970) 56.8 % ABSOLUTE CD8 (test code = 00299) 670 PERUL CD4/CD8 RATIO (test code = 48196) 0.37 Delfino Schumacher AustinCD4/CD8 LYMPHOCYTE [id number] 00:00:00* Test Item Value Reference Range Interpretation Comme nts ABSOLUTE LYMPHOCYTES (test c ode = 89699) 1180 PERUL PERCENT CD4 (test code = 78207) 20.9 % ABSOLUTE CD4 (test code = 20994) 247 PERUL PERCENT CD8 (test code = 16869) 56.8 % ABSOLUTE CD8 (test code = 29157) 670 PERUL CD4/CD8 RATIO (test code = 91602) 0.37 Delfino Schumacher AustinCD4/CD8 LYMPHOCYTE [id number] 00:00:00* Test Item Value Reference Range Interpretation Comme nts ABSOLUTE LYMPHOCYTES (test c ode = 90769) 1180 PERUL PERCENT CD4 (test code = 34239) 20.9 % ABSOLUTE CD4 (test code = 21203) 247 PERUL PERCENT CD8 (test code = 99020) 56.8 % ABSOLUTE CD8 (test code = 42988) 670 PERUL CD4/CD8 RATIO (test code = 59531) 0.37 Delfino Schumacher AustinCD4/CD8 LYMPHOCYTE [id number] 00:00:00* Test Item Value Reference Range Interpretation Comme nts ABSOLUTE LYMPHOCYTES (test c ode = 98671) 1180 PERUL PERCENT CD4 (test code = 98422) 20.9 % ABSOLUTE CD4 (test code = 98818) 247 PERUL PERCENT CD8 (test code = 26900) 56.8 % ABSOLUTE CD8 (test code = 60395) 670 PERUL CD4/CD8 RATIO (test code = 72323) 0.37 Delfino Schumacher AustinCD4/CD8 LYMPHOCYTE [id number] 00:00:00* Test Item Value Reference Range Interpretation Comme nts ABSOLUTE LYMPHOCYTES (test c ode = 12181) 1180 PERUL PERCENT CD4 (test code = 48358) 20.9 % ABSOLUTE CD4 (test code = 63798) 247 PERUL PERCENT CD8 (test code = 36849) 56.8 % ABSOLUTE CD8 (test code = 05759) 670 PERUL CD4/CD8 RATIO (test code = 35986) 0.37 Delfino Schumacher AustinCD4/CD8 LYMPHOCYTE [id number] 00:00:00* Test Item Value Reference Range Interpretation Comme nts ABSOLUTE LYMPHOCYTES (test c ode = 86516) 1180 PERUL PERCENT CD4 (test code = 31017) 20.9 % ABSOLUTE CD4 (test code = 76532) 247 PERUL PERCENT CD8 (test code = 54441) 56.8 % ABSOLUTE CD8 (test code = 55845) 670 PERUL CD4/CD8 RATIO (test code = 59566) 0.37 Delfino Schumacher AustinCD4/CD8 LYMPHOCYTE [id number] 00:00:00* Test Item Value Reference Range Interpretation Comme nts ABSOLUTE LYMPHOCYTES (test c ode = 70874) 1180 PERUL PERCENT CD4 (test code = 09268) 20.9 % ABSOLUTE CD4 (test code = 62357) 247 PERUL PERCENT CD8 (test code = 13280) 56.8 % ABSOLUTE CD8 (test code = 76417) 670 PERUL CD4/CD8 RATIO (test code = 22639) 0.37 Delfino Schmuacher AustinCD4/CD8 LYMPHOCYTE [id number] 00:00:00* Test Item Value Reference Range Interpretation Comme nts ABSOLUTE LYMPHOCYTES (test c ode = 43773) 1180 PERUL PERCENT CD4 (test code = 18400) 20.9 % ABSOLUTE CD4 (test code = 61619) 247 PERUL PERCENT CD8 (test code = 89270) 56.8 % ABSOLUTE CD8 (test code = 35862) 670 PERUL CD4/CD8 RATIO (test code = 47826) 0.37 Delfino Schumacher AustinCD4/CD8 LYMPHOCYTE [id number] 00:00:00* Test Item Value Reference Range Interpretation Comme nts ABSOLUTE LYMPHOCYTES (test c ode = 37701) 1180 PERUL PERCENT CD4 (test code = 37795) 20.9 % ABSOLUTE CD4 (test code = 41553) 247 PERUL PERCENT CD8 (test code = 51908) 56.8 % ABSOLUTE CD8 (test code = 15022) 670 PERUL CD4/CD8 RATIO (test code = 32443) 0.37 Delfino Schumacher AustinCD4/CD8 LYMPHOCYTE [id number] 00:00:00* Test Item Value Reference Range Interpretation Comme nts ABSOLUTE LYMPHOCYTES (test c ode = 09984) 1180 PERUL PERCENT CD4 (test code = 13103) 20.9 % ABSOLUTE CD4 (test code = 22974) 247 PERUL PERCENT CD8 (test code = 02075) 56.8 % ABSOLUTE CD8 (test code = 99971) 670 PERUL CD4/CD8 RATIO (test code = 67878) 0.37 Delfino Schumacher AustinCD4/CD8 LYMPHOCYTE [id number] 00:00:00* Test Item Value Reference Range Interpretation Comme nts ABSOLUTE LYMPHOCYTES (test c ode = 71857) 1180 PERUL PERCENT CD4 (test code = 67237) 20.9 % ABSOLUTE CD4 (test code = 10183) 247 PERUL PERCENT CD8 (test code = 55077) 56.8 % ABSOLUTE CD8 (test code = 97282) 670 PERUL CD4/CD8 RATIO (test code = 19690) 0.37 Delfino Schumacher AustinCD4/CD8 LYMPHOCYTE [id number] 00:00:00* Test Item Value Reference Range Interpretation Comme nts ABSOLUTE LYMPHOCYTES (test c ode = 43073) 1180 PERUL PERCENT CD4 (test code = 45740) 20.9 % ABSOLUTE CD4 (test code = 08516) 247 PERUL PERCENT CD8 (test code = 09086) 56.8 % ABSOLUTE CD8 (test code = 98475) 670 PERUL CD4/CD8 RATIO (test code = 82532) 0.37 Delfino OrtaCD4/CD8 LYMPHOCYTE [id number] 00:00:00* Test Item Value Reference Range Interpretation Comme nts ABSOLUTE LYMPHOCYTES (test c ode = 15545) 1180 PERUL PERCENT CD4 (test code = 79875) 20.9 % ABSOLUTE CD4 (test code = 46277) 247 PERUL PERCENT CD8 (test code = 41914) 56.8 % ABSOLUTE CD8 (test code = 41825) 670 PERUL CD4/CD8 RATIO (test code = 37215) 0.37 Delfino OrtaCBC W/AUTO [id number] 00:00:00* Test Item Value Reference Range Interpretation [...] ABS NUCLEATED RBCS (test cod e = 36292) 0.00 K/UL Delfino Schumacher YouCOMPREHENSIVE METABOLIC [id number] 00:00:00* Test Item Value Reference Range Interpretation Comme nts GLUCOSE (test code = 2217) 83 MG/DL BUN (test code = 2208) 24 MG/DL CREATININE (test code = 2214) 1.32 MG/DL eGFR (2020 CKD-EPI) (test co de = 96203) 46 ML/MIN/1.73 CALC BUN/CREAT (test code = [...] 2219) 13 U/L Delfino Schumacher YouCD4/CD8 LYMPHOCYTE [id number] 00:00:00* Test Item Value Reference Range Interpretation Comme [facility] ABSOLUTE LYMPHOCYTES (test c ode = 25814) 877 PERUL PERCENT CD4 (test code = 08493) 22.4 % ABSOLUTE CD4 (test code = 62225) 196 PERUL PERCENT CD8 (test code = 48023) 58.8 % ABSOLUTE CD8 (test code = 71676) 515 PERUL CD4/CD8 RATIO (test code = 71484) 0.38 Delfino Endy YouHIV-1 QUANT, [id number] 00:00:00* Test Item Value Reference Range Interpretation Comme nts HIV-1 VIRAL COPY (test code = 4141) 619 COPIES/ML HIV-1 VIRAL LOG (test code = 05618) 2.792 LOGCOPIES/ML Delfino Endy YouHEMOGLOBIN A1c [ADDED]2023-09-11 00:00:00* Test Item Value Reference Range Interpretation Comme nts HEMOGLOBIN A1c (test code = 79121) 5.6 % Delfino OrtaCBC W/AUTO [id number] 00:00:00* Test Item Value Reference Range Interpretation [...] ABS NUCLEATED RBCS (test cod e = 15881) 0.00 K/UL Delfino OrtaCOMPREHENSIVE METABOLIC [id number] 00:00:00* Test Item Value Reference Range Interpretation Comme nts GLUCOSE (test code = 2217) 83 MG/DL BUN (test code = 2208) 24 MG/DL CREATININE (test code = 2214) 1.32 MG/DL eGFR (2020 CKD-EPI) (test co de = 98605) 46 ML/MIN/1.73 CALC BUN/CREAT (test code = [...] = 2219) 13 U/L Delfino OrtaCD4/CD8 LYMPHOCYTE [id number] 00:00:00* Test Item Value Reference Range Interpretation Comme [facility] ABSOLUTE LYMPHOCYTES (test c ode = 14248) 877 PERUL PERCENT CD4 (test code = 29170) 22.4 % ABSOLUTE CD4 (test code = 48868) 196 PERUL PERCENT CD8 (test code = 77433) 58.8 % ABSOLUTE CD8 (test code = 22004) 515 PERUL CD4/CD8 RATIO (test code = 59687) 0.38 Delfino OrtaHIV-1 QUANT, [id number] 00:00:00* Test Item Value Reference Range Interpretation Comme [facility] HIV-1 VIRAL COPY (test code = 4141) 619 COPIES/ML HIV-1 VIRAL LOG (test code = 03509) 2.792 LOGCOPIES/ML Delfino OrtaHEMOGLOBIN A1c [ADDED]2023-09-11 00:00:00* Test Item Value Reference Range Interpretation Comme [facility] HEMOGLOBIN A1c (test code = 95597) 5.6 % Delfino OrtaCBC W/AUTO [id number] 00:00:00* Test Item Value Reference Range Interpretation [...] ABS NUCLEATED RBCS (test cod e = 71343) 0.00 K/UL Delfino OrtaCOMPREHENSIVE METABOLIC [id number] 00:00:00* Test Item Value Reference Range Interpretation Comme nts GLUCOSE (test code = 2217) 83 MG/DL BUN (test code = 2208) 24 MG/DL CREATININE (test code = 2214) 1.32 MG/DL eGFR (2020 CKD-EPI) (test co de = 66195) 46 ML/MIN/1.73 CALC BUN/CREAT (test code = [...] = 2219) 13 U/L Delfino OrtaCD4/CD8 LYMPHOCYTE [id number] 00:00:00* Test Item Value Reference Range Interpretation Comme [facility] ABSOLUTE LYMPHOCYTES (test c ode = 46255) 877 PERUL PERCENT CD4 (test code = 51091) 22.4 % ABSOLUTE CD4 (test code = 66505) 196 PERUL PERCENT CD8 (test code = 19789) 58.8 % ABSOLUTE CD8 (test code = 11170) 515 PERUL CD4/CD8 RATIO (test code = 57382) 0.38 Delfino OrtaHIV-1 QUANT, [id number] 00:00:00* Test Item Value Reference Range Interpretation Comme [facility] HIV-1 VIRAL COPY (test code = 4141) 619 COPIES/ML HIV-1 VIRAL LOG (test code = 10036) 2.792 LOGCOPIES/ML Delfino OrtaHEMOGLOBIN A1c [ADDED]2023-09-11 00:00:00* Test Item Value Reference Range Interpretation Comme [facility] HEMOGLOBIN A1c (test code = 46871) 5.6 % Delfino OrtaCBC W/AUTO [id number] 00:00:00* Test Item Value Reference Range Interpretation [...] ABS NUCLEATED RBCS (test cod e = 31016) 0.00 K/UL Delfino OrtaCOMPREHENSIVE METABOLIC [id number] 00:00:00* Test Item Value Reference Range Interpretation Comme nts GLUCOSE (test code = 2217) 83 MG/DL BUN (test code = 2208) 24 MG/DL CREATININE (test code = 2214) 1.32 MG/DL eGFR (2020 CKD-EPI) (test co de = 50773) 46 ML/MIN/1.73 CALC BUN/CREAT (test code = [...] = 2219) 13 U/L Delfino OrtaCD4/CD8 LYMPHOCYTE [id number] 00:00:00* Test Item Value Reference Range Interpretation Comme nts ABSOLUTE LYMPHOCYTES (test c ode = 52589) 877 PERUL PERCENT CD4 (test code = 25781) 22.4 % ABSOLUTE CD4 (test code = 93523) 196 PERUL PERCENT CD8 (test code = 29840) 58.8 % ABSOLUTE CD8 (test code = 79708) 515 PERUL CD4/CD8 RATIO (test code = 53422) 0.38 Delfino OrtaHIV-1 QUANT, [id number] 00:00:00* Test Item Value Reference Range Interpretation Comme nts HIV-1 VIRAL COPY (test code = 4141) 619 COPIES/ML HIV-1 VIRAL LOG (test code = 30025) 2.792 LOGCOPIES/ML Delfino OrtaHEMOGLOBIN A1c [ADDED]2023-09-11 00:00:00* Test Item Value Reference Range Interpretation Comme nts HEMOGLOBIN A1c (test code = 09230) 5.6 % Delfino OrtaCBC W/AUTO [id number] 00:00:00* Test Item Value Reference Range Interpretation [...] ABS NUCLEATED RBCS (test cod e = 84770) 0.00 K/UL Delfino OrtaCOMPREHENSIVE METABOLIC [id number] 00:00:00* Test Item Value Reference Range Interpretation Comme nts GLUCOSE (test code = 2217) 83 MG/DL BUN (test code = 2208) 24 MG/DL CREATININE (test code = 2214) 1.32 MG/DL eGFR (2020 CKD-EPI) (test co de = 45647) 46 ML/MIN/1.73 CALC BUN/CREAT (test code = [...] = 2219) 13 U/L Delfino OrtaCD4/CD8 LYMPHOCYTE [id number] 00:00:00* Test Item Value Reference Range Interpretation Comme [facility] ABSOLUTE LYMPHOCYTES (test c ode = 62444) 877 PERUL PERCENT CD4 (test code = 11557) 22.4 % ABSOLUTE CD4 (test code = 67019) 196 PERUL PERCENT CD8 (test code = 78051) 58.8 % ABSOLUTE CD8 (test code = 96110) 515 PERUL CD4/CD8 RATIO (test code = 18357) 0.38 Delfino OrtaHIV-1 QUANT, [id number] 00:00:00* Test Item Value Reference Range Interpretation Comme [facility] HIV-1 VIRAL COPY (test code = 4141) 619 COPIES/ML HIV-1 VIRAL LOG (test code = 54479) 2.792 LOGCOPIES/ML Delfino OrtaHEMOGLOBIN A1c [ADDED]2023-09-11 00:00:00* Test Item Value Reference Range Interpretation Comme [facility] HEMOGLOBIN A1c (test code = 97523) 5.6 % Delfino OrtaCBC W/AUTO [id number] 00:00:00* Test Item Value Reference Range Interpretation [...] ABS NUCLEATED RBCS (test cod e = 91202) 0.00 K/UL Delfino OrtaCOMPREHENSIVE METABOLIC [id number] 00:00:00* Test Item Value Reference Range Interpretation Comme nts GLUCOSE (test code = 2217) 83 MG/DL BUN (test code = 2208) 24 MG/DL CREATININE (test code = 2214) 1.32 MG/DL eGFR (2020 CKD-EPI) (test co de = 93294) 46 ML/MIN/1.73 CALC BUN/CREAT (test code = [...] = 2219) 13 U/L Delfino OrtaCD4/CD8 LYMPHOCYTE [id number] 00:00:00* Test Item Value Reference Range Interpretation Comme nts ABSOLUTE LYMPHOCYTES (test c ode = 59206) 877 PERUL PERCENT CD4 (test code = 19909) 22.4 % ABSOLUTE CD4 (test code = 70619) 196 PERUL PERCENT CD8 (test code = 91804) 58.8 % ABSOLUTE CD8 (test code = 18317) 515 PERUL CD4/CD8 RATIO (test code = 37119) 0.38 Delfino OrtaHIV-1 QUANT, [id number] 00:00:00* Test Item Value Reference Range Interpretation Comme [facility] HIV-1 VIRAL COPY (test code = 4141) 619 COPIES/ML HIV-1 VIRAL LOG (test code = 64554) 2.792 LOGCOPIES/ML Delfino OrtaHEMOGLOBIN A1c [ADDED]2023-09-11 00:00:00* Test Item Value Reference Range Interpretation Comme nts HEMOGLOBIN A1c (test code = 55558) 5.6 % Delfino OrtaCBC W/AUTO [id number] 00:00:00* Test Item Value Reference Range Interpretation [...] ABS NUCLEATED RBCS (test cod e = 40937) 0.00 K/UL Delfino OrtaCOMPREHENSIVE METABOLIC [id number] 00:00:00* Test Item Value Reference Range Interpretation Comme nts GLUCOSE (test code = 2217) 83 MG/DL BUN (test code = 2208) 24 MG/DL CREATININE (test code = 2214) 1.32 MG/DL eGFR (2020 CKD-EPI) (test co de = 23794) 46 ML/MIN/1.73 CALC BUN/CREAT (test code = [...] = 2219) 13 U/L Delfino OrtaCD4/CD8 LYMPHOCYTE [id number] 00:00:00* Test Item Value Reference Range Interpretation Comme nts ABSOLUTE LYMPHOCYTES (test c ode = 53015) 877 PERUL PERCENT CD4 (test code = 15530) 22.4 % ABSOLUTE CD4 (test code = 24559) 196 PERUL PERCENT CD8 (test code = 98907) 58.8 % ABSOLUTE CD8 (test code = 38882) 515 PERUL CD4/CD8 RATIO (test code = 45050) 0.38 Delfino OrtaHIV-1 QUANT, [id number] 00:00:00* Test Item Value Reference Range Interpretation Comme [facility] HIV-1 VIRAL COPY (test code = 4141) 619 COPIES/ML HIV-1 VIRAL LOG (test code = 62861) 2.792 LOGCOPIES/ML Delfino OrtaHEMOGLOBIN A1c [ADDED]2023-09-11 00:00:00* Test Item Value Reference Range Interpretation Comme [facility] HEMOGLOBIN A1c (test code = 42029) 5.6 % Delfino OrtaCBC W/AUTO [id number] 00:00:00* Test Item Value Reference Range Interpretation [...] ABS NUCLEATED RBCS (test cod e = 99438) 0.00 K/UL Delfino OrtaCOMPREHENSIVE METABOLIC [id number] 00:00:00* Test Item Value Reference Range Interpretation Comme nts GLUCOSE (test code = 2217) 83 MG/DL BUN (test code = 2208) 24 MG/DL CREATININE (test code = 2214) 1.32 MG/DL eGFR (2020 CKD-EPI) (test co de = 48319) 46 ML/MIN/1.73 CALC BUN/CREAT (test code = [...] 2219) 13 U/L Delfino Schumacher YouCD4/CD8 LYMPHOCYTE [id number] 00:00:00* Test Item Value Reference Range Interpretation Comme nts ABSOLUTE LYMPHOCYTES (test c ode = 65343) 877 PERUL PERCENT CD4 (test code = 10281) 22.4 % ABSOLUTE CD4 (test code = 38947) 196 PERUL PERCENT CD8 (test code = 20612) 58.8 % ABSOLUTE CD8 (test code = 29863) 515 PERUL CD4/CD8 RATIO (test code = 64116) 0.38 Delfino Schumacher YouHIV-1 QUANT, [id number] 00:00:00* Test Item Value Reference Range Interpretation Comme nts HIV-1 VIRAL COPY (test code = 4141) 619 COPIES/ML HIV-1 VIRAL LOG (test code = 29929) 2.792 LOGCOPIES/ML Delfino OrtaHEMOGLOBIN A1c [ADDED]2023-09-11 00:00:00* Test Item Value Reference Range Interpretation Comme nts HEMOGLOBIN A1c (test code = 97047) 5.6 % Delfino OrtaCBC W/AUTO [id number] 00:00:00* Test Item Value Reference Range Interpretation [...] ABS NUCLEATED RBCS (test cod e = 47280) 0.00 K/UL Delfino OrtaCOMPREHENSIVE METABOLIC [id number] 00:00:00* Test Item Value Reference Range Interpretation Comme nts GLUCOSE (test code = 2217) 83 MG/DL BUN (test code = 2208) 24 MG/DL CREATININE (test code = 2214) 1.32 MG/DL eGFR (2020 CKD-EPI) (test co de = 42298) 46 ML/MIN/1.73 CALC BUN/CREAT (test code = [...] = 2219) 13 U/L Delfino OrtaCD4/CD8 LYMPHOCYTE [id number] 00:00:00* Test Item Value Reference Range Interpretation Comme nts ABSOLUTE LYMPHOCYTES (test c ode = 81900) 877 PERUL PERCENT CD4 (test code = 78429) 22.4 % ABSOLUTE CD4 (test code = 35399) 196 PERUL PERCENT CD8 (test code = 32755) 58.8 % ABSOLUTE CD8 (test code = 37551) 515 PERUL CD4/CD8 RATIO (test code = 24074) 0.38 Delfino OrtaHIV-1 QUANT, [id number] 00:00:00* Test Item Value Reference Range Interpretation Comme nts HIV-1 VIRAL COPY (test code = 4141) 619 COPIES/ML HIV-1 VIRAL LOG (test code = 46425) 2.792 LOGCOPIES/ML Delfino OrtaHEMOGLOBIN A1c [ADDED]2023-09-11 00:00:00* Test Item Value Reference Range Interpretation Comme nts HEMOGLOBIN A1c (test code = 60054) 5.6 % Delfino OrtaCBC W/AUTO [id number] 00:00:00* Test Item Value Reference Range Interpretation [...] ABS NUCLEATED RBCS (test cod e = 22911) 0.00 K/UL Delfino F AustinCOMPREHENSIVE METABOLIC [id number] 00:00:00* Test Item Value Reference Range Interpretation Comme nts GLUCOSE (test code = 2217) 83 MG/DL BUN (test code = 2208) 24 MG/DL CREATININE (test code = 2214) 1.32 MG/DL eGFR (2020 CKD-EPI) (test co de = 78956) 46 ML/MIN/1.73 CALC BUN/CREAT (test code = [...] = 2219) 13 U/L Delfino OrtaCD4/CD8 LYMPHOCYTE [id number] 00:00:00* Test Item Value Reference Range Interpretation Comme nts ABSOLUTE LYMPHOCYTES (test c ode = 72551) 877 PERUL PERCENT CD4 (test code = 40018) 22.4 % ABSOLUTE CD4 (test code = 10851) 196 PERUL PERCENT CD8 (test code = 00998) 58.8 % ABSOLUTE CD8 (test code = 46072) 515 PERUL CD4/CD8 RATIO (test code = 93844) 0.38 Delfino OrtaHIV-1 QUANT, [id number] 00:00:00* Test Item Value Reference Range Interpretation Comme [facility] HIV-1 VIRAL COPY (test code = 4141) 619 COPIES/ML HIV-1 VIRAL LOG (test code = 37742) 2.792 LOGCOPIES/ML Delfino OrtaHEMOGLOBIN A1c [ADDED]2023-09-11 00:00:00* Test Item Value Reference Range Interpretation Comme [facility] HEMOGLOBIN A1c (test code = 38118) 5.6 % Delfino OrtaCBC W/AUTO [id number] 00:00:00* Test Item Value Reference Range Interpretation [...] ABS NUCLEATED RBCS (test cod e = 32769) 0.00 K/UL Delfino OrtaCOMPREHENSIVE METABOLIC [id number] 00:00:00* Test Item Value Reference Range Interpretation Comme nts GLUCOSE (test code = 2217) 83 MG/DL BUN (test code = 2208) 24 MG/DL CREATININE (test code = 2214) 1.32 MG/DL eGFR (2020 CKD-EPI) (test co de = 34408) 46 ML/MIN/1.73 CALC BUN/CREAT (test code = [...] = 2219) 13 U/L Delfino OrtaCD4/CD8 LYMPHOCYTE [id number] 00:00:00* Test Item Value Reference Range Interpretation Comme nts ABSOLUTE LYMPHOCYTES (test c ode = 33691) 877 PERUL PERCENT CD4 (test code = 94372) 22.4 % ABSOLUTE CD4 (test code = 17547) 196 PERUL PERCENT CD8 (test code = 07749) 58.8 % ABSOLUTE CD8 (test code = 14487) 515 PERUL CD4/CD8 RATIO (test code = 39120) 0.38 Delfino OrtaHIV-1 QUANT, [id number] 00:00:00* Test Item Value Reference Range Interpretation Comme nts HIV-1 VIRAL COPY (test code = 4141) 619 COPIES/ML HIV-1 VIRAL LOG (test code = 36311) 2.792 LOGCOPIES/ML Delfino OrtaHEMOGLOBIN A1c [ADDED]2023-09-11 00:00:00* Test Item Value Reference Range Interpretation Comme nts HEMOGLOBIN A1c (test code = 72246) 5.6 % Delfino OrtaCBC W/AUTO [id number] 00:00:00* Test Item Value Reference Range Interpretation [...] ABS NUCLEATED RBCS (test cod e = 50450) 0.00 K/UL Delfino OrtaCOMPREHENSIVE METABOLIC [id number] 00:00:00* Test Item Value Reference Range Interpretation Comme nts GLUCOSE (test code = 2217) 83 MG/DL BUN (test code = 2208) 24 MG/DL CREATININE (test code = 2214) 1.32 MG/DL eGFR (2020 CKD-EPI) (test co de = 39915) 46 ML/MIN/1.73 CALC BUN/CREAT (test code = [...] = 2219) 13 U/L Delfino OrtaCD4/CD8 LYMPHOCYTE [id number] 00:00:00* Test Item Value Reference Range Interpretation Comme nts ABSOLUTE LYMPHOCYTES (test c ode = 08482) 877 PERUL PERCENT CD4 (test code = 17530) 22.4 % ABSOLUTE CD4 (test code = 34573) 196 PERUL PERCENT CD8 (test code = 11132) 58.8 % ABSOLUTE CD8 (test code = 85740) 515 PERUL CD4/CD8 RATIO (test code = 54490) 0.38 Delfino OrtaHIV-1 QUANT, [id number] 00:00:00* Test Item Value Reference Range Interpretation Comme nts HIV-1 VIRAL COPY (test code = 4141) 619 COPIES/ML HIV-1 VIRAL LOG (test code = 53574) 2.792 LOGCOPIES/ML Delfino OrtaHEMOGLOBIN A1c [ADDED]2023-09-11 00:00:00* Test Item Value Reference Range Interpretation Comme nts HEMOGLOBIN A1c (test code = 14552) 5.6 % Delfino OrtaCBC W/AUTO [id number] 00:00:00* Test Item Value Reference Range Interpretation [...] ABS NUCLEATED RBCS (test cod e = 34637) 0.00 K/UL Delfino OrtaCOMPREHENSIVE METABOLIC [id number] 00:00:00* Test Item Value Reference Range Interpretation Comme nts GLUCOSE (test code = 2217) 83 MG/DL BUN (test code = 2208) 24 MG/DL CREATININE (test code = 2214) 1.32 MG/DL eGFR (2020 CKD-EPI) (test co de = 62030) 46 ML/MIN/1.73 CALC BUN/CREAT (test code = [...] = 2219) 13 U/L Delfino OrtaCD4/CD8 LYMPHOCYTE [id number] 00:00:00* Test Item Value Reference Range Interpretation Comme nts ABSOLUTE LYMPHOCYTES (test c ode = 59886) 877 PERUL PERCENT CD4 (test code = 63630) 22.4 % ABSOLUTE CD4 (test code = 39783) 196 PERUL PERCENT CD8 (test code = 42820) 58.8 % ABSOLUTE CD8 (test code = 46569) 515 PERUL CD4/CD8 RATIO (test code = 84882) 0.38 Delfino OrtaHIV-1 QUANT, [id number] 00:00:00* Test Item Value Reference Range Interpretation Comme nts HIV-1 VIRAL COPY (test code = 4141) 619 COPIES/ML HIV-1 VIRAL LOG (test code = 12304) 2.792 LOGCOPIES/ML Delfino OrtaHEMOGLOBIN A1c [ADDED]2023-09-11 00:00:00* Test Item Value Reference Range Interpretation Comme nts HEMOGLOBIN A1c (test code = 40786) 5.6 % Delfino OrtaCBC W/AUTO [id number] 00:00:00* Test Item Value Reference Range Interpretation [...] ABS NUCLEATED RBCS (test cod e = 48629) 0.00 K/UL Delfino F YouCOMPREHENSIVE METABOLIC [id number] 00:00:00* Test Item Value Reference Range Interpretation Comme nts GLUCOSE (test code = 2217) 83 MG/DL BUN (test code = 2208) 24 MG/DL CREATININE (test code = 2214) 1.32 MG/DL eGFR (2020 CKD-EPI) (test co de = 16923) 46 ML/MIN/1.73 CALC BUN/CREAT (test code = [...] = 2219) 13 U/L Delfino OrtaCD4/CD8 LYMPHOCYTE [id number] 00:00:00* Test Item Value Reference Range Interpretation Comme nts ABSOLUTE LYMPHOCYTES (test c ode = 29474) 877 PERUL PERCENT CD4 (test code = 84115) 22.4 % ABSOLUTE CD4 (test code = 16981) 196 PERUL PERCENT CD8 (test code = 54418) 58.8 % ABSOLUTE CD8 (test code = 99968) 515 PERUL CD4/CD8 RATIO (test code = 27419) 0.38 Delfino OrtaHIV-1 QUANT, [id number] 00:00:00* Test Item Value Reference Range Interpretation Comme [facility] HIV-1 VIRAL COPY (test code = 4141) 619 COPIES/ML HIV-1 VIRAL LOG (test code = 13586) 2.792 LOGCOPIES/ML Delfino OrtaHEMOGLOBIN A1c [ADDED]2023-09-11 00:00:00* Test Item Value Reference Range Interpretation Comme [facility] HEMOGLOBIN A1c (test code = 79406) 5.6 % Delfino OrtaCBC W/AUTO [id number] 00:00:00* Test Item Value Reference Range Interpretation [...] ABS NUCLEATED RBCS (test cod e = 42400) 0.00 K/UL Delfino OrtaCOMPREHENSIVE METABOLIC [id number] 00:00:00* Test Item Value Reference Range Interpretation Comme nts GLUCOSE (test code = 2217) 83 MG/DL BUN (test code = 2208) 24 MG/DL CREATININE (test code = 2214) 1.32 MG/DL eGFR (2020 CKD-EPI) (test co de = 27840) 46 ML/MIN/1.73 CALC BUN/CREAT (test code = [...] = 2219) 13 U/L Delfino OrtaCD4/CD8 LYMPHOCYTE [id number] 00:00:00* Test Item Value Reference Range Interpretation Comme nts ABSOLUTE LYMPHOCYTES (test c ode = 53452) 877 PERUL PERCENT CD4 (test code = 54514) 22.4 % ABSOLUTE CD4 (test code = 11905) 196 PERUL PERCENT CD8 (test code = 95598) 58.8 % ABSOLUTE CD8 (test code = 53278) 515 PERUL CD4/CD8 RATIO (test code = 18492) 0.38 Delfino OrtaHIV-1 QUANT, [id number] 00:00:00* Test Item Value Reference Range Interpretation Comme nts HIV-1 VIRAL COPY (test code = 4141) 619 COPIES/ML HIV-1 VIRAL LOG (test code = 28049) 2.792 LOGCOPIES/ML Delfino OrtaHEMOGLOBIN A1c [ADDED]2023-09-11 00:00:00* Test Item Value Reference Range Interpretation Comme nts HEMOGLOBIN A1c (test code = 87884) 5.6 % Delfino OrtaCBC W/AUTO [id number] 00:00:00* Test Item Value Reference Range Interpretation [...] ABS NUCLEATED RBCS (test cod e = 45788) 0.00 K/UL Delfino OrtaCOMPREHENSIVE METABOLIC [id number] 00:00:00* Test Item Value Reference Range Interpretation Comme nts GLUCOSE (test code = 2217) 83 MG/DL BUN (test code = 2208) 24 MG/DL CREATININE (test code = 2214) 1.32 MG/DL eGFR (2020 CKD-EPI) (test co de = 81970) 46 ML/MIN/1.73 CALC BUN/CREAT (test code = [...] = 2219) 13 U/L Delfino OrtaCD4/CD8 LYMPHOCYTE [id number] 00:00:00* Test Item Value Reference Range Interpretation Comme nts ABSOLUTE LYMPHOCYTES (test c ode = 64094) 877 PERUL PERCENT CD4 (test code = 18580) 22.4 % ABSOLUTE CD4 (test code = 40496) 196 PERUL PERCENT CD8 (test code = 31201) 58.8 % ABSOLUTE CD8 (test code = 27347) 515 PERUL CD4/CD8 RATIO (test code = 07962) 0.38 eDlfino OrtaHIV-1 QUANT, [id number] 00:00:00* Test Item Value Reference Range Interpretation Comme nts HIV-1 VIRAL COPY (test code = 4141) 619 COPIES/ML HIV-1 VIRAL LOG (test code = 66059) 2.792 LOGCOPIES/ML Delfino OrtaHEMOGLOBIN A1c [ADDED]2023-09-11 00:00:00* Test Item Value Reference Range Interpretation Comme nts HEMOGLOBIN A1c (test code = 42983) 5.6 % Delfino OrtaCBC W/AUTO [id number] 00:00:00* Test Item Value Reference Range Interpretation [...] ABS NUCLEATED RBCS (test cod e = 55833) 0.00 K/UL Delfino OrtaCOMPREHENSIVE METABOLIC [id number] 00:00:00* Test Item Value Reference Range Interpretation Comme nts GLUCOSE (test code = 2217) 83 MG/DL BUN (test code = 2208) 24 MG/DL CREATININE (test code = 2214) 1.32 MG/DL eGFR (2020 CKD-EPI) (test co de = 31526) 46 ML/MIN/1.73 CALC BUN/CREAT (test code = [...] = 2219) 13 U/L Delfino OrtaCD4/CD8 LYMPHOCYTE [id number] 00:00:00* Test Item Value Reference Range Interpretation Comme nts ABSOLUTE LYMPHOCYTES (test c ode = 45120) 877 PERUL PERCENT CD4 (test code = 50913) 22.4 % ABSOLUTE CD4 (test code = 96780) 196 PERUL PERCENT CD8 (test code = 05853) 58.8 % ABSOLUTE CD8 (test code = 81445) 515 PERUL CD4/CD8 RATIO (test code = 88418) 0.38 Delfino OrtaHIV-1 QUANT, [id number] 00:00:00* Test Item Value Reference Range Interpretation Comme nts HIV-1 VIRAL COPY (test code = 4141) 619 COPIES/ML HIV-1 VIRAL LOG (test code = 13958) 2.792 LOGCOPIES/ML Delfnio OrtaHEMOGLOBIN A1c [ADDED]2023-09-11 00:00:00* Test Item Value Reference Range Interpretation Comme nts HEMOGLOBIN A1c (test code = 95022) 5.6 % Delfino OrtaCBC W/AUTO [id number] 00:00:00* Test Item Value Reference Range Interpretation [...] ABS NUCLEATED RBCS (test cod e = 29240) 0.00 K/UL Delfino F YouCOMPREHENSIVE METABOLIC [id number] 00:00:00* Test Item Value Reference Range Interpretation Comme nts GLUCOSE (test code = 2217) 83 MG/DL BUN (test code = 2208) 24 MG/DL CREATININE (test code = 2214) 1.32 MG/DL eGFR (2020 CKD-EPI) (test co de = 78291) 46 ML/MIN/1.73 CALC BUN/CREAT (test code = [...] = 2219) 13 U/L Delfino OrtaCD4/CD8 LYMPHOCYTE [id number] 00:00:00* Test Item Value Reference Range Interpretation Comme [facility] ABSOLUTE LYMPHOCYTES (test c ode = 02437) 877 PERUL PERCENT CD4 (test code = 74840) 22.4 % ABSOLUTE CD4 (test code = 72410) 196 PERUL PERCENT CD8 (test code = 07857) 58.8 % ABSOLUTE CD8 (test code = 50080) 515 PERUL CD4/CD8 RATIO (test code = 82894) 0.38 Delfino OrtaHIV-1 QUANT, [id number] 00:00:00* Test Item Value Reference Range Interpretation Comme [facility] HIV-1 VIRAL COPY (test code = 4141) 619 COPIES/ML HIV-1 VIRAL LOG (test code = 65558) 2.792 LOGCOPIES/ML Delfino OrtaHEMOGLOBIN A1c [ADDED]2023-09-11 00:00:00* Test Item Value Reference Range Interpretation Comme [facility] HEMOGLOBIN A1c (test code = 51266) 5.6 % Delfino OrtaCBC W/AUTO [id number] 00:00:00* Test Item Value Reference Range Interpretation [...] ABS NUCLEATED RBCS (test cod e = 86662) 0.00 K/UL Delfino OrtaCOMPREHENSIVE METABOLIC [id number] 00:00:00* Test Item Value Reference Range Interpretation Comme nts GLUCOSE (test code = 2217) 83 MG/DL BUN (test code = 2208) 24 MG/DL CREATININE (test code = 2214) 1.32 MG/DL eGFR (2020 CKD-EPI) (test co de = 88885) 46 ML/MIN/1.73 CALC BUN/CREAT (test code = [...] = 2219) 13 U/L Delfino OrtaCD4/CD8 LYMPHOCYTE [id number] 00:00:00* Test Item Value Reference Range Interpretation Comme nts ABSOLUTE LYMPHOCYTES (test c ode = 01282) 877 PERUL PERCENT CD4 (test code = 10082) 22.4 % ABSOLUTE CD4 (test code = 04234) 196 PERUL PERCENT CD8 (test code = 06959) 58.8 % ABSOLUTE CD8 (test code = 53163) 515 PERUL CD4/CD8 RATIO (test code = 73179) 0.38 Delfino OrtaHIV-1 QUANT, [id number] 00:00:00* Test Item Value Reference Range Interpretation Comme [facility] HIV-1 VIRAL COPY (test code = 4141) 619 COPIES/ML HIV-1 VIRAL LOG (test code = 85912) 2.792 LOGCOPIES/ML Delfino OrtaHEMOGLOBIN A1c [ADDED]2023-09-11 00:00:00* Test Item Value Reference Range Interpretation Comme nts HEMOGLOBIN A1c (test code = 69597) 5.6 % Delfino OrtaCBC W/AUTO [id number] 00:00:00* Test Item Value Reference Range Interpretation [...] ABS NUCLEATED RBCS (test cod e = 95946) 0.00 K/UL Delfino OrtaCOMPREHENSIVE METABOLIC [id number] 00:00:00* Test Item Value Reference Range Interpretation Comme nts GLUCOSE (test code = 2217) 83 MG/DL BUN (test code = 2208) 24 MG/DL CREATININE (test code = 2214) 1.32 MG/DL eGFR (2020 CKD-EPI) (test co de = 36267) 46 ML/MIN/1.73 CALC BUN/CREAT (test code = [...] 2219) 13 U/L Delfino Schumacher YouCD4/CD8 LYMPHOCYTE [id number] 00:00:00* Test Item Value Reference Range Interpretation Comme nts ABSOLUTE LYMPHOCYTES (test c ode = 51602) 877 PERUL PERCENT CD4 (test code = 03430) 22.4 % ABSOLUTE CD4 (test code = 38364) 196 PERUL PERCENT CD8 (test code = 51269) 58.8 % ABSOLUTE CD8 (test code = 61027) 515 PERUL CD4/CD8 RATIO (test code = 39293) 0.38 Delfino OrtaHIV-1 QUANT, [id number] 00:00:00* Test Item Value Reference Range Interpretation Comme nts HIV-1 VIRAL COPY (test code = 4141) 619 COPIES/ML HIV-1 VIRAL LOG (test code = 62025) 2.792 LOGCOPIES/ML Delfino OrtaHEMOGLOBIN A1c [ADDED]2023-09-11 00:00:00* Test Item Value Reference Range Interpretation Comme nts HEMOGLOBIN A1c (test code = 78496) 5.6 % Delfino OrtaCBC W/AUTO [id number] 00:00:00* Test Item Value Reference Range Interpretation [...] ABS NUCLEATED RBCS (test cod e = 80019) 0.00 K/UL Delfino OrtaCOMPREHENSIVE METABOLIC [id number] 00:00:00* Test Item Value Reference Range Interpretation Comme nts GLUCOSE (test code = 2217) 83 MG/DL BUN (test code = 2208) 24 MG/DL CREATININE (test code = 2214) 1.32 MG/DL eGFR (2021 CKD-EPI) (test co de = 14674) 46 ML/MIN/1.73 CALC BUN/CREAT (test code = [...] 2219) 13 U/L Delfino Schumacher YouCD4/CD8 LYMPHOCYTE [id number] 00:00:00* Test Item Value Reference Range Interpretation Comme nts ABSOLUTE LYMPHOCYTES (test c ode = 92063) 877 PERUL PERCENT CD4 (test code = 16381) 22.4 % ABSOLUTE CD4 (test code = 47776) 196 PERUL PERCENT CD8 (test code = 84717) 58.8 % ABSOLUTE CD8 (test code = 91931) 515 PERUL CD4/CD8 RATIO (test code = 43366) 0.38 Delfino Schumacher YouHIV-1 QUANT, [id number] 00:00:00* Test Item Value Reference Range Interpretation Comme [facility] HIV-1 VIRAL COPY (test code = 4141) 619 COPIES/ML HIV-1 VIRAL LOG (test code = 86209) 2.792 LOGCOPIES/ML Delfino Schumacher YouHEMOGLOBIN A1c [ADDED]2023-09-11 00:00:00* Test Item Value Reference Range Interpretation Comme [facility] HEMOGLOBIN A1c (test code = 89693) 5.6 % Delfino Schumacher YouCBC W/AUTO [id number] 00:00:00* Test Item Value Reference Range Interpretation [...] ABS NUCLEATED RBCS (test cod e = 33613) 0.00 K/UL Delfino OrtaCOMPREHENSIVE METABOLIC [id number] 00:00:00* Test Item Value Reference Range Interpretation Comme nts GLUCOSE (test code = 2217) 83 MG/DL BUN (test code = 2208) 24 MG/DL CREATININE (test code = 2214) 1.32 MG/DL eGFR (2020 CKD-EPI) (test co de = 70690) 46 ML/MIN/1.73 CALC BUN/CREAT (test code = [...] = 2219) 13 U/L Delfino OrtaCD4/CD8 LYMPHOCYTE [id number] 00:00:00* Test Item Value Reference Range Interpretation Comme [facility] ABSOLUTE LYMPHOCYTES (test c ode = 10452) 877 PERUL PERCENT CD4 (test code = 54980) 22.4 % ABSOLUTE CD4 (test code = 35606) 196 PERUL PERCENT CD8 (test code = 11693) 58.8 % ABSOLUTE CD8 (test code = 69193) 515 PERUL CD4/CD8 RATIO (test code = 76581) 0.38 Delfino OrtaHIV-1 QUANT, [id number] 00:00:00* Test Item Value Reference Range Interpretation Comme [facility] HIV-1 VIRAL COPY (test code = 4141) 619 COPIES/ML HIV-1 VIRAL LOG (test code = 63308) 2.792 LOGCOPIES/ML Delfino OrtaHEMOGLOBIN A1c [ADDED]2023-09-11 00:00:00* Test Item Value Reference Range Interpretation Comme [facility] HEMOGLOBIN A1c (test code = 02633) 5.6 % Delfino OrtaCBC W/AUTO [id number] 00:00:00* Test Item Value Reference Range Interpretation [...] ABS NUCLEATED RBCS (test cod e = 77101) 0.00 K/UL Delfino OrtaCOMPREHENSIVE METABOLIC [id number] 00:00:00* Test Item Value Reference Range Interpretation Comme nts GLUCOSE (test code = 2217) 83 MG/DL BUN (test code = 2208) 24 MG/DL CREATININE (test code = 2214) 1.32 MG/DL eGFR (2020 CKD-EPI) (test co de = 26816) 46 ML/MIN/1.73 CALC BUN/CREAT (test code = [...] = 2219) 13 U/L Delfino OrtaCD4/CD8 LYMPHOCYTE [id number] 00:00:00* Test Item Value Reference Range Interpretation Comme nts ABSOLUTE LYMPHOCYTES (test c ode = 70481) 877 PERUL PERCENT CD4 (test code = 23795) 22.4 % ABSOLUTE CD4 (test code = 80996) 196 PERUL PERCENT CD8 (test code = 13057) 58.8 % ABSOLUTE CD8 (test code = 54112) 515 PERUL CD4/CD8 RATIO (test code = 08016) 0.38 Delfino OrtaHIV-1 QUANT, [id number] 00:00:00* Test Item Value Reference Range Interpretation Comme [facility] HIV-1 VIRAL COPY (test code = 4141) 619 COPIES/ML HIV-1 VIRAL LOG (test code = 49553) 2.792 LOGCOPIES/ML Delfino OrtaHEMOGLOBIN A1c [ADDED]2023-09-11 00:00:00* Test Item Value Reference Range Interpretation Comme [facility] HEMOGLOBIN A1c (test code = 02183) 5.6 % Delfino OtraCBC W/AUTO [id number] 00:00:00* Test Item Value Reference Range Interpretation [...] ABS NUCLEATED RBCS (test cod e = 77714) 0.00 K/UL Delfino OrtaCOMPREHENSIVE METABOLIC [id number] 00:00:00* Test Item Value Reference Range Interpretation Comme nts GLUCOSE (test code = 2217) 83 MG/DL BUN (test code = 2208) 24 MG/DL CREATININE (test code = 2214) 1.32 MG/DL eGFR (2020 CKD-EPI) (test co de = 17014) 46 ML/MIN/1.73 CALC BUN/CREAT (test code = [...] = 2219) 13 U/L Delfino OrtaCD4/CD8 LYMPHOCYTE [id number] 00:00:00* Test Item Value Reference Range Interpretation Comme nts ABSOLUTE LYMPHOCYTES (test c ode = 26465) 877 PERUL PERCENT CD4 (test code = 39596) 22.4 % ABSOLUTE CD4 (test code = 46229) 196 PERUL PERCENT CD8 (test code = 10675) 58.8 % ABSOLUTE CD8 (test code = 63272) 515 PERUL CD4/CD8 RATIO (test code = 29847) 0.38 Delfino OrtaHIV-1 QUANT, [id number] 00:00:00* Test Item Value Reference Range Interpretation Comme nts HIV-1 VIRAL COPY (test code = 4141) 619 COPIES/ML HIV-1 VIRAL LOG (test code = 55106) 2.792 LOGCOPIES/ML Delfino OrtaHEMOGLOBIN A1c [ADDED]2023-09-11 00:00:00* Test Item Value Reference Range Interpretation Comme nts HEMOGLOBIN A1c (test code = 34459) 5.6 % Delfino OrtaCBC W/AUTO [id number] 00:00:00* Test Item Value Reference Range Interpretation [...] ABS NUCLEATED RBCS (test cod e = 60396) 0.00 K/UL Delfino OrtaCOMPREHENSIVE METABOLIC [id number] 00:00:00* Test Item Value Reference Range Interpretation Comme nts GLUCOSE (test code = 2217) 83 MG/DL BUN (test code = 2208) 24 MG/DL CREATININE (test code = 2214) 1.32 MG/DL eGFR (2020 CKD-EPI) (test co de = 05361) 46 ML/MIN/1.73 CALC BUN/CREAT (test code = [...] 2219) 13 U/L Delfino F YouCD4/CD8 LYMPHOCYTE [id number] 00:00:00* Test Item Value Reference Range Interpretation Comme [facility] ABSOLUTE LYMPHOCYTES (test c ode = 29288) 877 PERUL PERCENT CD4 (test code = 26190) 22.4 % ABSOLUTE CD4 (test code = 26447) 196 PERUL PERCENT CD8 (test code = 15570) 58.8 % ABSOLUTE CD8 (test code = 38593) 515 PERUL CD4/CD8 RATIO (test code = 90881) 0.38 Delfino Endy YouHIV-1 QUANT, [id number] 00:00:00* Test Item Value Reference Range Interpretation Comme [facility] HIV-1 VIRAL COPY (test code = 4141) 619 COPIES/ML HIV-1 VIRAL LOG (test code = 88285) 2.792 LOGCOPIES/ML Delfino Endy YouHEMOGLOBIN A1c [ADDED]2023-09-11 00:00:00* Test Item Value Reference Range Interpretation Comme [facility] HEMOGLOBIN A1c (test code = 17332) 5.6 % Delfino OrtaCBC W/AUTO [id number] 00:00:00* Test Item Value Reference Range Interpretation [...] ABS NUCLEATED RBCS (test cod e = 26112) 0.00 K/UL Delfino OrtaCOMPREHENSIVE METABOLIC [id number] 00:00:00* Test Item Value Reference Range Interpretation Comme nts GLUCOSE (test code = 2217) 83 MG/DL BUN (test code = 2208) 24 MG/DL CREATININE (test code = 2214) 1.32 MG/DL eGFR (2020 CKD-EPI) (test co de = 08030) 46 ML/MIN/1.73 CALC BUN/CREAT (test code = [...] = 2219) 13 U/L Delfino OrtaCD4/CD8 LYMPHOCYTE [id number] 00:00:00* Test Item Value Reference Range Interpretation Comme [facility] ABSOLUTE LYMPHOCYTES (test c ode = 94056) 877 PERUL PERCENT CD4 (test code = 84968) 22.4 % ABSOLUTE CD4 (test code = 84422) 196 PERUL PERCENT CD8 (test code = 51666) 58.8 % ABSOLUTE CD8 (test code = 88322) 515 PERUL CD4/CD8 RATIO (test code = 37109) 0.38 Delfino OrtaHIV-1 QUANT, [id number] 00:00:00* Test Item Value Reference Range Interpretation Comme [facility] HIV-1 VIRAL COPY (test code = 4141) 619 COPIES/ML HIV-1 VIRAL LOG (test code = 69504) 2.792 LOGCOPIES/ML Delfino OrtaHEMOGLOBIN A1c [ADDED]2023-09-11 00:00:00* Test Item Value Reference Range Interpretation Comme [facility] HEMOGLOBIN A1c (test code = 07417) 5.6 % Delfino OrtaCBC W/AUTO [id number] 00:00:00* Test Item Value Reference Range Interpretation [...] ABS NUCLEATED RBCS (test cod e = 58478) 0.00 K/UL Delfino OrtaCOMPREHENSIVE METABOLIC [id number] 00:00:00* Test Item Value Reference Range Interpretation Comme nts GLUCOSE (test code = 2217) 83 MG/DL BUN (test code = 2208) 24 MG/DL CREATININE (test code = 2214) 1.32 MG/DL eGFR (2020 CKD-EPI) (test co de = 26392) 46 ML/MIN/1.73 CALC BUN/CREAT (test code = [...] = 2219) 13 U/L Delfino OrtaCD4/CD8 LYMPHOCYTE [id number] 00:00:00* Test Item Value Reference Range Interpretation Comme nts ABSOLUTE LYMPHOCYTES (test c ode = 90035) 877 PERUL PERCENT CD4 (test code = 14972) 22.4 % ABSOLUTE CD4 (test code = 15971) 196 PERUL PERCENT CD8 (test code = 32457) 58.8 % ABSOLUTE CD8 (test code = 70115) 515 PERUL CD4/CD8 RATIO (test code = 72909) 0.38 Delfino OrtaHIV-1 QUANT, [id number] 00:00:00* Test Item Value Reference Range Interpretation Comme nts HIV-1 VIRAL COPY (test code = 4141) 619 COPIES/ML HIV-1 VIRAL LOG (test code = 97264) 2.792 LOGCOPIES/ML Delfino OrtaHEMOGLOBIN A1c [ADDED]2023-09-11 00:00:00* Test Item Value Reference Range Interpretation Comme [facility] HEMOGLOBIN A1c (test code = 24214) 5.6 % Delfino Cedeño, [id number] 09:15:45SPECIMEN NUMBER: [id number] CULTURE, URINE SPECIMEN NUMBER: [id number] SPECIMEN COMMENT: URINE SOURCE: URINE REPORT STATUS: FINAL FINAL REPORT: 08/30/2023 10-100,000 CFU/ML MIXED MICROBIAL POPULATION PRESENT, NO PREDOMINATING ORGANISMS;PROBABLE CONTAMINANTS. UNLESS OTHERWISE INDICATED, ALL TESTING PERFORMED AT [facility] 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 [place] NUMBER [id number] [facility] [place]. [id number], [id number] 00:00:00* Test Item Value Reference Range Interpretation Comme nts CULTURE, URINE (test code = 27616) SPECIMEN NUMBER: [id number] Delfino SarmientoLTNIALL, [id number] 00:00:00* Test Item Value Reference Range Interpretation Comme nts CULTURE, URINE (test code = 52292) SPECIMEN NUMBER: [id number] Delfino OrtaCULTNIALL, [id number] 00:00:00* Test Item Value Reference Range Interpretation Comme nts CULTURE, URINE (test code = 20507) SPECIMEN NUMBER: [id number] Delfino SarmientoLTNIALL, [id number] 00:00:00* Test Item Value Reference Range Interpretation Comme nts CULTURE, URINE (test code = 74089) SPECIMEN NUMBER: [id number] Delfino SarmientoLTNIALL, [id number] 00:00:00* Test Item Value Reference Range Interpretation Comme nts CULTURE, URINE (test code = 84326) SPECIMEN NUMBER: [id number] Delfino Cedeño, [id number] 00:00:00* Test Item Value Reference Range Interpretation Comme nts CULTURE, URINE (test code = 47452) SPECIMEN NUMBER: [id number] Delfino Cedeño [id number] 00:00:00* Test Item Value Reference Range Interpretation Comme nts CULTURE, URINE (test code = 95872) SPECIMEN NUMBER: [id number] Delfino Cedeño, [id number] 00:00:00* Test Item Value Reference Range Interpretation Comme nts CULTURE, URINE (test code = 90946) SPECIMEN NUMBER: [id number] Delfino Cedeño, [id number] 00:00:00* Test Item Value Reference Range Interpretation Comme nts CULTURE, URINE (test code = 47531) SPECIMEN NUMBER: [id number] Delfino Cedeño, [id number] 00:00:00* Test Item Value Reference Range Interpretation Comme nts CULTURE, URINE (test code = 56814) SPECIMEN NUMBER: [id number] Delfino Cedeño, [id number] 00:00:00* Test Item Value Reference Range Interpretation Comme nts CULTURE, URINE (test code = 02855) SPECIMEN NUMBER: [id number] Delfino Cedeño, [id number] 00:00:00* Test Item Value Reference Range Interpretation Comme nts CULTURE, URINE (test code = 97052) SPECIMEN NUMBER: [id number] Delfino Cedeño, [id number] 00:00:00* Test Item Value Reference Range Interpretation Comme nts CULTURE, URINE (test code = 49546) SPECIMEN NUMBER: [id number] Delfino SarmientoLTNIALL, [id number] 00:00:00* Test Item Value Reference Range Interpretation Comme nts CULTURE, URINE (test code = 40494) SPECIMEN NUMBER: [id number] Delfino Cedeño, [id number] 00:00:00* Test Item Value Reference Range Interpretation Comme nts CULTURE, URINE (test code = 73264) SPECIMEN NUMBER: [id number] Delfino Cedeño, [id number] 00:00:00* Test Item Value Reference Range Interpretation Comme nts CULTURE, URINE (test code = 65892) SPECIMEN NUMBER: [id number] Delfino Cedeño, [id number] 00:00:00* Test Item Value Reference Range Interpretation Comme nts CULTURE, URINE (test code = 29448) SPECIMEN NUMBER: [id number] Delfino SarmientoLTNIALL, [id number] 00:00:00* Test Item Value Reference Range Interpretation Comme nts CULTURE, URINE (test code = 80316) SPECIMEN NUMBER: [id number] Delfino Cedeño, [id number] 00:00:00* Test Item Value Reference Range Interpretation Comme nts CULTURE, URINE (test code = 17881) SPECIMEN NUMBER: [id number] Delfino Cedeño, [id number] 00:00:00* Test Item Value Reference Range Interpretation Comme nts CULTURE, URINE (test code = 14898) SPECIMEN NUMBER: [id number] Delfino SarmientoLTNIALL, [id number] 00:00:00* Test Item Value Reference Range Interpretation Comme nts CULTURE, URINE (test code = 04080) SPECIMEN NUMBER: [id number] Delfino SarmientoLTNIALL, [id number] 00:00:00* Test Item Value Reference Range Interpretation Comme nts CULTURE, URINE (test code = 56314) SPECIMEN NUMBER: [id number] Delfino SarmientoLTNIALL, [id number] 00:00:00* Test Item Value Reference Range Interpretation Comme nts CULTURE, URINE (test code = 46240) SPECIMEN NUMBER: [id number] Delfino SarmientoLTNIALL, [id number] 00:00:00* Test Item Value Reference Range Interpretation Comme nts CULTURE, URINE (test code = 27441) SPECIMEN NUMBER: [id number] Delfino SarmientoLTNIALL, [id number] 00:00:00* Test Item Value Reference Range Interpretation Comme nts CULTURE, URINE (test code = 91832) SPECIMEN NUMBER: [id number] Delfino Cedeño, [id number] 00:00:00* Test Item Value Reference Range Interpretation Comme nts CULTURE, URINE (test code = 84159) SPECIMEN NUMBER: [id number] Delfino Cedeño [id number] 00:00:00* Test Item Value Reference Range Interpretation Comme nts CULTURE, URINE (test code = 11741) SPECIMEN NUMBER: [id number] Delfino Cedeño [id number] 00:00:00* Test Item Value Reference Range Interpretation Comme nts CULTURE, URINE (test code = 28710) SPECIMEN NUMBER: [id number] Delfino OrtaREFERRAL- REQUEST/[id number] 15:45:25Ordered by an unspecified provider.[facility] INHIBITOR [id number] 11:03:25* Test Item Value Reference Range Interpretation Comments BICTEGRAVIR (test code = 554006) Susceptible CABOTEGRAVIR (test code = 160091) Susceptible DOLUTEGRAVIR (test code = 24402) Susceptible ELVITEGRAVIR (test code = 23587) Susceptible RALTEGRAVIR (test code = 12057) Susceptible DRUG RESIST MUTATIONS (test code = 510014) INSTI (test code = 17286) None ACC RESIST MUTATIONS (test code = 078138) ACCESSORY MUT: (test code = 85715) None OTHER MUTATIONS (test code = 095903) INSTI (test code = 71472) SEE BELOW HIV-1 SUBTYPE (test code = 546145) [place] [facility] [place] (test code = 484893) HIVDB_9.6 Other Mutations (INSTI): S24G, A38R, L45S, [...] with the ARV. Methodology:Testing methodology is reverse pathology secretary/transcriptionist polymerase chainreaction (RT-PCR) and next-generation sequencing (NGS) of theintegrase (IN) region of the HIV-1 polymerase (carolynn) gene. HIV-1integrase inhibitor resistance mutations and associatedsusceptibility interpretations are assigned relative to the HIV-1subtype B consensus sequence utilizing the genotypic resistanceinterpretation algorithm of the [place] HIV Drug ResistanceDatabase (HIVDB). This test detects HIV-1 drug resistance mutations at a frequencyas low as 10%, which may account for differences in resistanceinterpretations between methods. Test results should be used andinterpreted in the context of clinical findings and other laboratorytest results. Disclaimer:This test was developed and its performance characteristicsdetermined by [facility] ([facility]). It has not beencleared or approved by the U.S. Food and Drug Administration (FDA).The FDA has determined that such clearance or approval is notnecessary. This test is used for clinical purposes and should not beregarded as investigational or for research. [facility] is qualified toperform high complexity testing under the Clinical LaboratoryImprovement Amendments (CLIA). TESTING PERFORMED AT [facility] [address] [place] [address], [facility], [place] [address] CLIA NO: [id number] UNLESS OTHERWISE INDICATED, ALL TESTING PERFORMED AT [facility] [address] [place] [address] THREAD PULLING MACHINE ATTENDANT: ABBI SHORT M.D. [place] NUMBER [id number] [facility] [place]. [id number] HIV-1 INTEGRASE INHIBITOR [id number] 00:00:00* Test Item Value Reference Range Interpretation Comme nts BICTEGRAVIR (test code = 049443) Susceptible CABOTEGRAVIR (test code = 378797) Susceptible DOLUTEGRAVIR (test code = 94791) Susceptible ELVITEGRAVIR (test code = 11475) Susceptible RALTEGRAVIR (test code = 02488) Susceptible DRUG RESIST MUTATIONS (test code = 328428) INSTI (test code = 45869) None ACC RESIST MUTATIONS (test c ode = 027050) ACCESSORY MUT: (test code = 11671) None OTHER MUTATIONS (test code = 137909) INSTI (test code = 33275) SEE BELOW HIV-1 SUBTYPE (test code = 555603) [facility] [place] HIVDB [place] (test cod e = 167409) HIVDB_9.6 Delfino Schumacher AustinHIV-1 INTEGRASE INHIBITOR [id number] 00:00:00* Test Item Value Reference Range Interpretation Comme nts BICTEGRAVIR (test code = 679875) Susceptible CABOTEGRAVIR (test code = 196416) Susceptible DOLUTEGRAVIR (test code = 36087) Susceptible ELVITEGRAVIR (test code = 46189) Susceptible RALTEGRAVIR (test code = 96856) Susceptible DRUG RESIST MUTATIONS (test code = 463188) INSTI (test code = 39202) None ACC RESIST MUTATIONS (test c ode = 565860) ACCESSORY MUT: (test code = 27079) None OTHER MUTATIONS (test code = 146153) INSTI (test code = 69771) SEE BELOW HIV-1 SUBTYPE (test code = 312273) [facility] HIVDB [facility] (test cod e = 851127) HIVDB_9.6 Delfino Schumacher AustinHIV-1 INTEGRASE INHIBITOR [id number] 00:00:00* Test Item Value Reference Range Interpretation Comme nts BICTEGRAVIR (test code = 675059) Susceptible CABOTEGRAVIR (test code = 204222) Susceptible DOLUTEGRAVIR (test code = 41215) Susceptible ELVITEGRAVIR (test code = 38729) Susceptible RALTEGRAVIR (test code = 70105) Susceptible DRUG RESIST MUTATIONS (test code = 069383) INSTI (test code = 51363) None ACC RESIST MUTATIONS (test c ode = 032780) ACCESSORY MUT: (test code = 47238) None OTHER MUTATIONS (test code = 437623) INSTI (test code = 77041) SEE BELOW HIV-1 SUBTYPE (test code = 721210) [place] [facility] (test cod e = 030495) HIVDB_9.6 Delfino Schumacher AustinHIV-1 INTEGRASE INHIBITOR [id number] 00:00:00* Test Item Value Reference Range Interpretation Comme nts BICTEGRAVIR (test code = 525593) Susceptible CABOTEGRAVIR (test code = 955281) Susceptible DOLUTEGRAVIR (test code = 22962) Susceptible ELVITEGRAVIR (test code = 04797) Susceptible RALTEGRAVIR (test code = 94753) Susceptible DRUG RESIST MUTATIONS (test code = 689334) INSTI (test code = 93185) None ACC RESIST MUTATIONS (test c ode = 904037) ACCESSORY MUT: (test code = 15460) None OTHER MUTATIONS (test code = 310259) INSTI (test code = 72894) SEE BELOW HIV-1 SUBTYPE (test code = 594811) [place] HIV[facility] (test cod e = 883792) HIVDB_9.6 Delfino Schumacher AustinHIV-1 INTEGRASE INHIBITOR [id number] 00:00:00* Test Item Value Reference Range Interpretation Comme nts BICTEGRAVIR (test code = 665391) Susceptible CABOTEGRAVIR (test code = 200754) Susceptible DOLUTEGRAVIR (test code = 62799) Susceptible ELVITEGRAVIR (test code = 01476) Susceptible RALTEGRAVIR (test code = 13071) Susceptible DRUG RESIST MUTATIONS (test code = 773081) INSTI (test code = 64304) None ACC RESIST MUTATIONS (test c ode = 595695) ACCESSORY MUT: (test code = 20049) None OTHER MUTATIONS (test code = 513114) INSTI (test code = 68019) SEE BELOW HIV-1 SUBTYPE (test code = 388467) [place] [facility] (test cod e = 778809) HIVDB_9.6 Delfino Schumacher AustinHIV-1 INTEGRASE INHIBITOR [id number] 00:00:00* Test Item Value Reference Range Interpretation Comme nts BICTEGRAVIR (test code = 148126) Susceptible CABOTEGRAVIR (test code = 480959) Susceptible DOLUTEGRAVIR (test code = 01422) Susceptible ELVITEGRAVIR (test code = 98889) Susceptible RALTEGRAVIR (test code = 96622) Susceptible DRUG RESIST MUTATIONS (test code = 781492) INSTI (test code = 10791) None ACC RESIST MUTATIONS (test c ode = 393069) ACCESSORY MUT: (test code = 78600) None OTHER MUTATIONS (test code = 986867) INSTI (test code = 96171) SEE BELOW HIV-1 SUBTYPE (test code = 162010) [place] [facility] (test cod e = 623190) HIVDB_9.6 Delfino Schumacher AustinHIV-1 INTEGRASE INHIBITOR [id number] 00:00:00* Test Item Value Reference Range Interpretation Comme nts BICTEGRAVIR (test code = 032526) Susceptible CABOTEGRAVIR (test code = 315896) Susceptible DOLUTEGRAVIR (test code = 48317) Susceptible ELVITEGRAVIR (test code = 79635) Susceptible RALTEGRAVIR (test code = 56194) Susceptible DRUG RESIST MUTATIONS (test code = 396424) INSTI (test code = 09037) None ACC RESIST MUTATIONS (test c ode = 650805) ACCESSORY MUT: (test code = 94078) None OTHER MUTATIONS (test code = 726350) INSTI (test code = 10014) SEE BELOW HIV-1 SUBTYPE (test code = 107112) [place] [facility] (test cod e = 326468) HIVDB_9.6 Delfino Schumacher AustinHIV-1 INTEGRASE INHIBITOR [id number] 00:00:00* Test Item Value Reference Range Interpretation Comme nts BICTEGRAVIR (test code = 029280) Susceptible CABOTEGRAVIR (test code = 665107) Susceptible DOLUTEGRAVIR (test code = 44718) Susceptible ELVITEGRAVIR (test code = 07294) Susceptible RALTEGRAVIR (test code = 00723) Susceptible DRUG RESIST MUTATIONS (test code = 935444) INSTI (test code = 65161) None ACC RESIST MUTATIONS (test c ode = 811985) ACCESSORY MUT: (test code = 02671) None OTHER MUTATIONS (test code = 764472) INSTI (test code = 48951) SEE BELOW HIV-1 SUBTYPE (test code = 238728) [place] [facility] (test cod e = 812672) HIVDB_9.6 Delfino Schumacher AustinHIV-1 INTEGRASE INHIBITOR [id number] 00:00:00* Test Item Value Reference Range Interpretation Comme nts BICTEGRAVIR (test code = 014688) Susceptible CABOTEGRAVIR (test code = 371744) Susceptible DOLUTEGRAVIR (test code = 26658) Susceptible ELVITEGRAVIR (test code = 19739) Susceptible RALTEGRAVIR (test code = 83492) Susceptible DRUG RESIST MUTATIONS (test code = 182918) INSTI (test code = 47213) None ACC RESIST MUTATIONS (test c ode = 996545) ACCESSORY MUT: (test code = 01355) None OTHER MUTATIONS (test code = 456213) INSTI (test code = 40745) SEE BELOW HIV-1 SUBTYPE (test code = 023894) [place] [facility] (test cod e = 740627) HIVDB_9.6 Delfino Schumacher AustinHIV-1 INTEGRASE INHIBITOR [id number] 00:00:00* Test Item Value Reference Range Interpretation Comme nts BICTEGRAVIR (test code = 989823) Susceptible CABOTEGRAVIR (test code = 269479) Susceptible DOLUTEGRAVIR (test code = 20775) Susceptible ELVITEGRAVIR (test code = 68463) Susceptible RALTEGRAVIR (test code = 98130) Susceptible DRUG RESIST MUTATIONS (test code = 207672) INSTI (test code = 24739) None ACC RESIST MUTATIONS (test c ode = 478125) ACCESSORY MUT: (test code = 94480) None OTHER MUTATIONS (test code = 495819) INSTI (test code = 61828) SEE BELOW HIV-1 SUBTYPE (test code = 487220) [place] [facility] (test cod e = 692449) HIVDB_9.6 Delfino Schumacher AustinHIV-1 INTEGRASE INHIBITOR [id number] 00:00:00* Test Item Value Reference Range Interpretation Comme nts BICTEGRAVIR (test code = 099285) Susceptible CABOTEGRAVIR (test code = 121242) Susceptible DOLUTEGRAVIR (test code = 99531) Susceptible ELVITEGRAVIR (test code = 66137) Susceptible RALTEGRAVIR (test code = 88669) Susceptible DRUG RESIST MUTATIONS (test code = 025876) INSTI (test code = 86929) None ACC RESIST MUTATIONS (test c ode = 235212) ACCESSORY MUT: (test code = 48911) None OTHER MUTATIONS (test code = 646515) INSTI (test code = 94865) SEE BELOW HIV-1 SUBTYPE (test code = 762912) [place] [facility] (test cod e = 527341) HIVDB_9.6 Delfino Schumacher AustinHIV-1 INTEGRASE INHIBITOR [id number] 00:00:00* Test Item Value Reference Range Interpretation Comme nts BICTEGRAVIR (test code = 564923) Susceptible CABOTEGRAVIR (test code = 932396) Susceptible DOLUTEGRAVIR (test code = 12164) Susceptible ELVITEGRAVIR (test code = 67680) Susceptible RALTEGRAVIR (test code = 18013) Susceptible DRUG RESIST MUTATIONS (test code = 447633) INSTI (test code = 78730) None ACC RESIST MUTATIONS (test c ode = 540854) ACCESSORY MUT: (test code = 03485) None OTHER MUTATIONS (test code = 096171) INSTI (test code = 17285) SEE BELOW HIV-1 SUBTYPE (test code = 611713) [place] [facility] (test cod e = 222762) HIVDB_9.6 Delfino OrtaHIV-1 INTEGRASE INHIBITOR [id number] 00:00:00* Test Item Value Reference Range Interpretation Comme nts BICTEGRAVIR (test code = 576634) Susceptible CABOTEGRAVIR (test code = 843904) Susceptible DOLUTEGRAVIR (test code = 65450) Susceptible ELVITEGRAVIR (test code = 46532) Susceptible RALTEGRAVIR (test code = 65595) Susceptible DRUG RESIST MUTATIONS (test code = 690656) INSTI (test code = 84261) None ACC RESIST MUTATIONS (test c ode = 026491) ACCESSORY MUT: (test code = 11637) None OTHER MUTATIONS (test code = 153782) INSTI (test code = 01760) SEE BELOW HIV-1 SUBTYPE (test code = 469920) [place] [facility] (test cod e = 290373) HIVDB_9.6 Delfino Schumacher AustinHIV-1 INTEGRASE INHIBITOR [id number] 00:00:00* Test Item Value Reference Range Interpretation Comme nts BICTEGRAVIR (test code = 274417) Susceptible CABOTEGRAVIR (test code = 365085) Susceptible DOLUTEGRAVIR (test code = 45688) Susceptible ELVITEGRAVIR (test code = 90050) Susceptible RALTEGRAVIR (test code = 42923) Susceptible DRUG RESIST MUTATIONS (test code = 700575) INSTI (test code = 45017) None ACC RESIST MUTATIONS (test c ode = 035916) ACCESSORY MUT: (test code = 94894) None OTHER MUTATIONS (test code = 406953) INSTI (test code = 85799) SEE BELOW HIV-1 SUBTYPE (test code = 120012) [place] [facility] (test cod e = 488223) HIVDB_9.6 Delfino Schumacher AustinHIV-1 INTEGRASE INHIBITOR [id number] 00:00:00* Test Item Value Reference Range Interpretation Comme nts BICTEGRAVIR (test code = 883213) Susceptible CABOTEGRAVIR (test code = 533603) Susceptible DOLUTEGRAVIR (test code = 40775) Susceptible ELVITEGRAVIR (test code = 40668) Susceptible RALTEGRAVIR (test code = 44025) Susceptible DRUG RESIST MUTATIONS (test code = 621358) INSTI (test code = 80519) None ACC RESIST MUTATIONS (test c ode = 653227) ACCESSORY MUT: (test code = 02447) None OTHER MUTATIONS (test code = 186053) INSTI (test code = 61644) SEE BELOW HIV-1 SUBTYPE (test code = 747369) [place] [facility] (test cod e = 639460) HIVDB_9.6 Delfino Schumacher AustinHIV-1 INTEGRASE INHIBITOR [id number] 00:00:00* Test Item Value Reference Range Interpretation Comme nts BICTEGRAVIR (test code = 321980) Susceptible CABOTEGRAVIR (test code = 091819) Susceptible DOLUTEGRAVIR (test code = 27141) Susceptible ELVITEGRAVIR (test code = 65223) Susceptible RALTEGRAVIR (test code = 01556) Susceptible DRUG RESIST MUTATIONS (test code = 589806) INSTI (test code = 22285) None ACC RESIST MUTATIONS (test c ode = 851111) ACCESSORY MUT: (test code = 41261) None OTHER MUTATIONS (test code = 339490) INSTI (test code = 16006) SEE BELOW HIV-1 SUBTYPE (test code = 939992) [place] [facility] (test cod e = 504883) HIVDB_9.6 Delfino Schumacher AustinHIV-1 INTEGRASE INHIBITOR [id number] 00:00:00* Test Item Value Reference Range Interpretation Comme nts BICTEGRAVIR (test code = 512495) Susceptible CABOTEGRAVIR (test code = 190222) Susceptible DOLUTEGRAVIR (test code = 11033) Susceptible ELVITEGRAVIR (test code = 18010) Susceptible RALTEGRAVIR (test code = 98994) Susceptible DRUG RESIST MUTATIONS (test code = 752653) INSTI (test code = 25105) None ACC RESIST MUTATIONS (test c ode = 607915) ACCESSORY MUT: (test code = 12368) None OTHER MUTATIONS (test code = 594546) INSTI (test code = 45489) SEE BELOW HIV-1 SUBTYPE (test code = 689949) [place] [facility] (test cod e = 799561) HIVDB_9.6 Delfino Schumacher AustinHIV-1 INTEGRASE INHIBITOR [id number] 00:00:00* Test Item Value Reference Range Interpretation Comme nts BICTEGRAVIR (test code = 713458) Susceptible CABOTEGRAVIR (test code = 372876) Susceptible DOLUTEGRAVIR (test code = 23517) Susceptible ELVITEGRAVIR (test code = 96569) Susceptible RALTEGRAVIR (test code = 79307) Susceptible DRUG RESIST MUTATIONS (test code = 441818) INSTI (test code = 12954) None ACC RESIST MUTATIONS (test c ode = 512576) ACCESSORY MUT: (test code = 57331) None OTHER MUTATIONS (test code = 047916) INSTI (test code = 70658) SEE BELOW HIV-1 SUBTYPE (test code = 491747) [place] [facility] (test cod e = 764710) HIVDB_9.6 Delfino Schumacher AustinHIV-1 INTEGRASE INHIBITOR [id number] 00:00:00* Test Item Value Reference Range Interpretation Comme nts BICTEGRAVIR (test code = 745968) Susceptible CABOTEGRAVIR (test code = 009553) Susceptible DOLUTEGRAVIR (test code = 06983) Susceptible ELVITEGRAVIR (test code = 30993) Susceptible RALTEGRAVIR (test code = 18016) Susceptible DRUG RESIST MUTATIONS (test code = 033421) INSTI (test code = 90103) None ACC RESIST MUTATIONS (test c ode = 640385) ACCESSORY MUT: (test code = 41035) None OTHER MUTATIONS (test code = 557307) INSTI (test code = 35977) SEE BELOW HIV-1 SUBTYPE (test code = 853942) [place] [facility] (test cod e = 585527) HIVDB_9.6 Delfino OrtaHIV-1 INTEGRASE INHIBITOR [id number] 00:00:00* Test Item Value Reference Range Interpretation Comme nts BICTEGRAVIR (test code = 075602) Susceptible CABOTEGRAVIR (test code = 310038) Susceptible DOLUTEGRAVIR (test code = 87262) Susceptible ELVITEGRAVIR (test code = 35722) Susceptible RALTEGRAVIR (test code = 69917) Susceptible DRUG RESIST MUTATIONS (test code = 540069) INSTI (test code = 79963) None ACC RESIST MUTATIONS (test c ode = 619901) ACCESSORY MUT: (test code = 48287) None OTHER MUTATIONS (test code = 654548) INSTI (test code = 84577) SEE BELOW HIV-1 SUBTYPE (test code = 214019) [place] [facility] (test cod e = 289619) HIVDB_9.6 Delfino Schumacher AustinHIV-1 INTEGRASE INHIBITOR [id number] 00:00:00* Test Item Value Reference Range Interpretation Comme nts BICTEGRAVIR (test code = 525692) Susceptible CABOTEGRAVIR (test code = 329405) Susceptible DOLUTEGRAVIR (test code = 15249) Susceptible ELVITEGRAVIR (test code = 95047) Susceptible RALTEGRAVIR (test code = 43424) Susceptible DRUG RESIST MUTATIONS (test code = 787922) INSTI (test code = 15589) None ACC RESIST MUTATIONS (test c ode = 543518) ACCESSORY MUT: (test code = 42420) None OTHER MUTATIONS (test code = 206429) INSTI (test code = 41626) SEE BELOW HIV-1 SUBTYPE (test code = 824980) [place] [facility] (test cod e = 945326) HIVDB_9.6 Delfino Schumacher AustinHIV-1 INTEGRASE INHIBITOR [id number] 00:00:00* Test Item Value Reference Range Interpretation Comme nts BICTEGRAVIR (test code = 355776) Susceptible CABOTEGRAVIR (test code = 011422) Susceptible DOLUTEGRAVIR (test code = 79158) Susceptible ELVITEGRAVIR (test code = 24650) Susceptible RALTEGRAVIR (test code = 09250) Susceptible DRUG RESIST MUTATIONS (test code = 447148) INSTI (test code = 37612) None ACC RESIST MUTATIONS (test c ode = 946299) ACCESSORY MUT: (test code = 82266) None OTHER MUTATIONS (test code = 093737) INSTI (test code = 84595) SEE BELOW HIV-1 SUBTYPE (test code = 552692) [place] [facility] (test cod e = 038011) HIVDB_9.6 Delfino Schumacher AustinHIV-1 INTEGRASE INHIBITOR [id number] 00:00:00* Test Item Value Reference Range Interpretation Comme nts BICTEGRAVIR (test code = 689870) Susceptible CABOTEGRAVIR (test code = 809619) Susceptible DOLUTEGRAVIR (test code = 99000) Susceptible ELVITEGRAVIR (test code = 65592) Susceptible RALTEGRAVIR (test code = 17208) Susceptible DRUG RESIST MUTATIONS (test code = 407794) INSTI (test code = 22305) None ACC RESIST MUTATIONS (test c ode = 830233) ACCESSORY MUT: (test code = 50032) None OTHER MUTATIONS (test code = 572430) INSTI (test code = 14646) SEE BELOW HIV-1 SUBTYPE (test code = 805755) [place] [facility] (test cod e = 922108) HIVDB_9.6 Delfino OrtaHIV-1 INTEGRASE INHIBITOR [id number] 00:00:00* Test Item Value Reference Range Interpretation Comme nts BICTEGRAVIR (test code = 702464) Susceptible CABOTEGRAVIR (test code = 518571) Susceptible DOLUTEGRAVIR (test code = 22310) Susceptible ELVITEGRAVIR (test code = 86107) Susceptible RALTEGRAVIR (test code = 93587) Susceptible DRUG RESIST MUTATIONS (test code = 317804) INSTI (test code = 60131) None ACC RESIST MUTATIONS (test c ode = 848021) ACCESSORY MUT: (test code = 14360) None OTHER MUTATIONS (test code = 718376) INSTI (test code = 30546) SEE BELOW HIV-1 SUBTYPE (test code = 849652) [place] [facility] (test cod e = 852205) HIVDB_9.6 Delfino Schumacher AustinHIV-1 INTEGRASE INHIBITOR [id number] 00:00:00* Test Item Value Reference Range Interpretation Comme nts BICTEGRAVIR (test code = 696432) Susceptible CABOTEGRAVIR (test code = 601659) Susceptible DOLUTEGRAVIR (test code = 79329) Susceptible ELVITEGRAVIR (test code = 05970) Susceptible RALTEGRAVIR (test code = 74623) Susceptible DRUG RESIST MUTATIONS (test code = 603849) INSTI (test code = 39025) None ACC RESIST MUTATIONS (test c ode = 071979) ACCESSORY MUT: (test code = 29453) None OTHER MUTATIONS (test code = 326666) INSTI (test code = 11321) SEE BELOW HIV-1 SUBTYPE (test code = 489956) [place] [facility] (test cod e = 965977) HIVDB_9.6 Delfino Schumacher AustinHIV-1 INTEGRASE INHIBITOR [id number] 00:00:00* Test Item Value Reference Range Interpretation Comme nts BICTEGRAVIR (test code = 223818) Susceptible CABOTEGRAVIR (test code = 452722) Susceptible DOLUTEGRAVIR (test code = 59209) Susceptible ELVITEGRAVIR (test code = 10260) Susceptible RALTEGRAVIR (test code = 74078) Susceptible DRUG RESIST MUTATIONS (test code = 219782) INSTI (test code = 55138) None ACC RESIST MUTATIONS (test c ode = 162926) ACCESSORY MUT: (test code = 91369) None OTHER MUTATIONS (test code = 038009) INSTI (test code = 63593) SEE BELOW HIV-1 SUBTYPE (test code = 852335) [place] [facility] (test cod e = 322369) HIVDB_9.6 Delfino Schumacher AustinHIV-1 INTEGRASE INHIBITOR [id number] 00:00:00* Test Item Value Reference Range Interpretation Comme nts BICTEGRAVIR (test code = 489810) Susceptible CABOTEGRAVIR (test code = 666592) Susceptible DOLUTEGRAVIR (test code = 41478) Susceptible ELVITEGRAVIR (test code = 81273) Susceptible RALTEGRAVIR (test code = 19112) Susceptible DRUG RESIST MUTATIONS (test code = 510880) INSTI (test code = 74907) None ACC RESIST MUTATIONS (test c ode = 998756) ACCESSORY MUT: (test code = 35816) None OTHER MUTATIONS (test code = 880343) INSTI (test code = 12187) SEE BELOW HIV-1 SUBTYPE (test code = 734404) [place] [facility] (test cod e = 646643) HIVDB_9.6 Delfino Schumacher AustinHIV-1 INTEGRASE INHIBITOR [id number] 00:00:00* Test Item Value Reference Range Interpretation Comme nts BICTEGRAVIR (test code = 496169) Susceptible CABOTEGRAVIR (test code = 554770) Susceptible DOLUTEGRAVIR (test code = 43701) Susceptible ELVITEGRAVIR (test code = 26564) Susceptible RALTEGRAVIR (test code = 62350) Susceptible DRUG RESIST MUTATIONS (test code = 040505) INSTI (test code = 12390) None ACC RESIST MUTATIONS (test c ode = 093291) ACCESSORY MUT: (test code = 79233) None OTHER MUTATIONS (test code = 559074) INSTI (test code = 71034) SEE BELOW HIV-1 SUBTYPE (test code = 603552) [place] [facility] (test cod e = 112627) HIVDB_9.6 Delfino Schumacher AustinHIV-1 INTEGRASE INHIBITOR [id number] 00:00:00* Test Item Value Reference Range Interpretation Comme nts BICTEGRAVIR (test code = 977567) Susceptible CABOTEGRAVIR (test code = 236595) Susceptible DOLUTEGRAVIR (test code = 38920) Susceptible ELVITEGRAVIR (test code = 64711) Susceptible RALTEGRAVIR (test code = 80736) Susceptible DRUG RESIST MUTATIONS (test code = 053546) INSTI (test code = 23628) None ACC RESIST MUTATIONS (test c ode = 629228) ACCESSORY MUT: (test code = 87363) None OTHER MUTATIONS (test code = 617828) INSTI (test code = 09096) SEE BELOW HIV-1 SUBTYPE (test code = 917200) [place] [facility] (test cod e = 562080) HIVDB_9.6 Delfino Schumacher AustinHIV-1 INTEGRASE INHIBITOR [id number] 00:00:00* Test Item Value Reference Range Interpretation Comme nts BICTEGRAVIR (test code = 764459) Susceptible CABOTEGRAVIR (test code = 169282) Susceptible DOLUTEGRAVIR (test code = 06445) Susceptible ELVITEGRAVIR (test code = 39726) Susceptible RALTEGRAVIR (test code = 18274) Susceptible DRUG RESIST MUTATIONS (test code = 566327) INSTI (test code = 60647) None ACC RESIST MUTATIONS (test c ode = 020809) ACCESSORY MUT: (test code = 00059) None OTHER MUTATIONS (test code = 399897) INSTI (test code = 63236) SEE BELOW HIV-1 SUBTYPE (test code = 318283) [place] [facility] (test cod e = 423543) HIVDB_9.6 Delfino OrtaHIV-1 INTEGRASE INHIBITOR [id number] 00:00:00* Test Item Value Reference Range Interpretation Comme nts BICTEGRAVIR (test code = 490003) Susceptible CABOTEGRAVIR (test code = 525772) Susceptible DOLUTEGRAVIR (test code = 44375) Susceptible ELVITEGRAVIR (test code = 40200) Susceptible RALTEGRAVIR (test code = 52119) Susceptible DRUG RESIST MUTATIONS (test code = 079239) INSTI (test code = 99979) None ACC RESIST MUTATIONS (test c ode = 077776) ACCESSORY MUT: (test code = 15330) None OTHER MUTATIONS (test code = 492052) INSTI (test code = 46163) SEE BELOW HIV-1 SUBTYPE (test code = 843281) [place] HIVDB [facility] (test cod e = 779480) HIVDB_[id number] Delfino Schumacher [place]-1 INTEGRASE INHIBITOR [id number] 00:00:00* Test Item Value Reference Range Interpretation Comme nts BICTEGRAVIR (test code = 627564) Susceptible CABOTEGRAVIR (test code = 506357) Susceptible DOLUTEGRAVIR (test code = 55573) Susceptible ELVITEGRAVIR (test code = 18773) Susceptible RALTEGRAVIR (test code = 02718) Susceptible DRUG RESIST MUTATIONS (test code = 011297) INSTI (test code = 06917) None ACC RESIST MUTATIONS (test c ode = 653868) ACCESSORY MUT: (test code = 52875) None OTHER MUTATIONS (test code = 386764) INSTI (test code = 39747) SEE BELOW HIV-1 SUBTYPE (test code = 301967) [place] HIVDB [facility] (test cod e = 990721) HIVDB_9.6 Delfino Schumacher [place]-1 INTEGRASE INHIBITOR [id number] 00:00:00* Test Item Value Reference Range Interpretation Comme nts BICTEGRAVIR (test code = [id number]) Susceptible CABOTEGRAVIR (test code = 818372) Susceptible DOLUTEGRAVIR (test code = 38893) Susceptible ELVITEGRAVIR (test code = 61531) Susceptible RALTEGRAVIR (test code = 56185) Susceptible DRUG RESIST MUTATIONS (test code = 102846) INSTI (test code = 24438) None ACC RESIST MUTATIONS (test c ode = 105026) ACCESSORY MUT: (test code = 37214) None OTHER MUTATIONS (test code = 155706) INSTI (test code = 92182) SEE BELOW HIV-1 SUBTYPE (test code = 905259) [place] HIVDB [facility] (test cod e = 001815) HIVDB_9.6 Delfino Schumacher AustinCD4/CD8 LYMPHOCYTE [id number] 12:40:38* Test Item Value Reference Range Interpretation Comme nts ABSOLUTE LYMPHOCYTES (test code = 51533) 941 PER UL 4329-4903 L Specimen rec eived outside of temperature specifications. Resultsreviewed by Abbi Short M.D. PERCENT CD4 (test code = 98229) 16.3 % 34.0-65.0 L ABSOLUTE CD4 (test code = 62444) 154 PER UL 520-1470 L PERCENT CD8 (test code = 59406) 52.5 % 13.0-38.0 H ABSOLUTE CD8 (test code = 35118) 494 PER UL 205-920 CD4/CD8 RATIO (test code = 03748) 0.31 0.92-3.41 L CD4/CD8 LYMPHOCYTE [id number] 00:00:00* Test Item Value Reference Range Interpretation Comme nts ABSOLUTE LYMPHOCYTES (test c ode = 13022) 941 PERUL PERCENT CD4 (test code = 81756) 16.3 % ABSOLUTE CD4 (test code = 47105) 154 PERUL PERCENT CD8 (test code = 23184) 52.5 % ABSOLUTE CD8 (test code = 73662) 494 PERUL CD4/CD8 RATIO (test code = 76818) 0.31 Delfino Schumacher AustinCD4/CD8 LYMPHOCYTE [id number] 00:00:00* Test Item Value Reference Range Interpretation Comme nts ABSOLUTE LYMPHOCYTES (test c ode = 78444) 941 PERUL PERCENT CD4 (test code = 01852) 16.3 % ABSOLUTE CD4 (test code = 00787) 154 PERUL PERCENT CD8 (test code = 34747) 52.5 % ABSOLUTE CD8 (test code = 34589) 494 PERUL CD4/CD8 RATIO (test code = 66035) 0.31 Delfino Schumacher AustinCD4/CD8 LYMPHOCYTE [id number] 00:00:00* Test Item Value Reference Range Interpretation Comme nts ABSOLUTE LYMPHOCYTES (test c ode = 29919) 941 PERUL PERCENT CD4 (test code = 40985) 16.3 % ABSOLUTE CD4 (test code = 19040) 154 PERUL PERCENT CD8 (test code = 31146) 52.5 % ABSOLUTE CD8 (test code = 69429) 494 PERUL CD4/CD8 RATIO (test code = 58786) 0.31 Delfino Schumacher AustinCD4/CD8 LYMPHOCYTE [id number] 00:00:00* Test Item Value Reference Range Interpretation Comme nts ABSOLUTE LYMPHOCYTES (test c ode = 91880) 941 PERUL PERCENT CD4 (test code = 18724) 16.3 % ABSOLUTE CD4 (test code = 57561) 154 PERUL PERCENT CD8 (test code = 85195) 52.5 % ABSOLUTE CD8 (test code = 30539) 494 PERUL CD4/CD8 RATIO (test code = 21520) 0.31 Delfino Schumacher AustinCD4/CD8 LYMPHOCYTE [id number] 00:00:00* Test Item Value Reference Range Interpretation Comme nts ABSOLUTE LYMPHOCYTES (test c ode = 32773) 941 PERUL PERCENT CD4 (test code = 50407) 16.3 % ABSOLUTE CD4 (test code = 16408) 154 PERUL PERCENT CD8 (test code = 15534) 52.5 % ABSOLUTE CD8 (test code = 64434) 494 PERUL CD4/CD8 RATIO (test code = 88781) 0.31 Delfino Schumacher AustinCD4/CD8 LYMPHOCYTE [id number] 00:00:00* Test Item Value Reference Range Interpretation Comme nts ABSOLUTE LYMPHOCYTES (test c ode = 27410) 941 PERUL PERCENT CD4 (test code = 56495) 16.3 % ABSOLUTE CD4 (test code = 25739) 154 PERUL PERCENT CD8 (test code = 70932) 52.5 % ABSOLUTE CD8 (test code = 42527) 494 PERUL CD4/CD8 RATIO (test code = 98031) 0.31 Delfino Schumacher AustinCD4/CD8 LYMPHOCYTE [id number] 00:00:00* Test Item Value Reference Range Interpretation Comme nts ABSOLUTE LYMPHOCYTES (test c ode = 68953) 941 PERUL PERCENT CD4 (test code = 64536) 16.3 % ABSOLUTE CD4 (test code = 79247) 154 PERUL PERCENT CD8 (test code = 87793) 52.5 % ABSOLUTE CD8 (test code = 03877) 494 PERUL CD4/CD8 RATIO (test code = 06050) 0.31 Delfino Schumacher AustinCD4/CD8 LYMPHOCYTE [id number] 00:00:00* Test Item Value Reference Range Interpretation Comme nts ABSOLUTE LYMPHOCYTES (test c ode = 87861) 941 PERUL PERCENT CD4 (test code = 14452) 16.3 % ABSOLUTE CD4 (test code = 42542) 154 PERUL PERCENT CD8 (test code = 69637) 52.5 % ABSOLUTE CD8 (test code = 23475) 494 PERUL CD4/CD8 RATIO (test code = 63783) 0.31 Delfino Schumacher AustinCD4/CD8 LYMPHOCYTE [id number] 00:00:00* Test Item Value Reference Range Interpretation Comme nts ABSOLUTE LYMPHOCYTES (test c ode = 29563) 941 PERUL PERCENT CD4 (test code = 71356) 16.3 % ABSOLUTE CD4 (test code = 78915) 154 PERUL PERCENT CD8 (test code = 06808) 52.5 % ABSOLUTE CD8 (test code = 15960) 494 PERUL CD4/CD8 RATIO (test code = 24314) 0.31 Delfino Schumacher AustinCD4/CD8 LYMPHOCYTE [id number] 00:00:00* Test Item Value Reference Range Interpretation Comme nts ABSOLUTE LYMPHOCYTES (test c ode = 16243) 941 PERUL PERCENT CD4 (test code = 38260) 16.3 % ABSOLUTE CD4 (test code = 14541) 154 PERUL PERCENT CD8 (test code = 25477) 52.5 % ABSOLUTE CD8 (test code = 21348) 494 PERUL CD4/CD8 RATIO (test code = 06485) 0.31 Delfnio Schumacher AustinCD4/CD8 LYMPHOCYTE [id number] 00:00:00* Test Item Value Reference Range Interpretation Comme nts ABSOLUTE LYMPHOCYTES (test c ode = 97478) 941 PERUL PERCENT CD4 (test code = 77876) 16.3 % ABSOLUTE CD4 (test code = 05390) 154 PERUL PERCENT CD8 (test code = 16693) 52.5 % ABSOLUTE CD8 (test code = 17880) 494 PERUL CD4/CD8 RATIO (test code = 63335) 0.31 Delfino Schumacher AustinCD4/CD8 LYMPHOCYTE [id number] 00:00:00* Test Item Value Reference Range Interpretation Comme nts ABSOLUTE LYMPHOCYTES (test c ode = 02175) 941 PERUL PERCENT CD4 (test code = 40501) 16.3 % ABSOLUTE CD4 (test code = 44323) 154 PERUL PERCENT CD8 (test code = 51609) 52.5 % ABSOLUTE CD8 (test code = 40487) 494 PERUL CD4/CD8 RATIO (test code = 61293) 0.31 Delfino Schumacher AustinCD4/CD8 LYMPHOCYTE [id number] 00:00:00* Test Item Value Reference Range Interpretation Comme nts ABSOLUTE LYMPHOCYTES (test c ode = 11722) 941 PERUL PERCENT CD4 (test code = 83705) 16.3 % ABSOLUTE CD4 (test code = 40281) 154 PERUL PERCENT CD8 (test code = 99547) 52.5 % ABSOLUTE CD8 (test code = 41301) 494 PERUL CD4/CD8 RATIO (test code = 53198) 0.31 Delfino Schumacher AustinCD4/CD8 LYMPHOCYTE [id number] 00:00:00* Test Item Value Reference Range Interpretation Comme nts ABSOLUTE LYMPHOCYTES (test c ode = 77881) 941 PERUL PERCENT CD4 (test code = 52619) 16.3 % ABSOLUTE CD4 (test code = 25870) 154 PERUL PERCENT CD8 (test code = 80346) 52.5 % ABSOLUTE CD8 (test code = 79026) 494 PERUL CD4/CD8 RATIO (test code = 10686) 0.31 Delfino Schumacher AustinCD4/CD8 LYMPHOCYTE [id number] 00:00:00* Test Item Value Reference Range Interpretation Comme nts ABSOLUTE LYMPHOCYTES (test c ode = 79808) 941 PERUL PERCENT CD4 (test code = 99122) 16.3 % ABSOLUTE CD4 (test code = 49445) 154 PERUL PERCENT CD8 (test code = 19810) 52.5 % ABSOLUTE CD8 (test code = 06890) 494 PERUL CD4/CD8 RATIO (test code = 39480) 0.31 Delfino Schumacher AustinCD4/CD8 LYMPHOCYTE [id number] 00:00:00* Test Item Value Reference Range Interpretation Comme nts ABSOLUTE LYMPHOCYTES (test c ode = 95270) 941 PERUL PERCENT CD4 (test code = 12520) 16.3 % ABSOLUTE CD4 (test code = 04131) 154 PERUL PERCENT CD8 (test code = 90683) 52.5 % ABSOLUTE CD8 (test code = 55780) 494 PERUL CD4/CD8 RATIO (test code = 48575) 0.31 Delfino Schumacher AustinCD4/CD8 LYMPHOCYTE [id number] 00:00:00* Test Item Value Reference Range Interpretation Comme nts ABSOLUTE LYMPHOCYTES (test c ode = 02517) 941 PERUL PERCENT CD4 (test code = 00014) 16.3 % ABSOLUTE CD4 (test code = 68605) 154 PERUL PERCENT CD8 (test code = 70617) 52.5 % ABSOLUTE CD8 (test code = 30967) 494 PERUL CD4/CD8 RATIO (test code = 54593) 0.31 Delfino Schumachre AustinCD4/CD8 LYMPHOCYTE [id number] 00:00:00* Test Item Value Reference Range Interpretation Comme nts ABSOLUTE LYMPHOCYTES (test c ode = 87988) 941 PERUL PERCENT CD4 (test code = 78327) 16.3 % ABSOLUTE CD4 (test code = 80418) 154 PERUL PERCENT CD8 (test code = 88192) 52.5 % ABSOLUTE CD8 (test code = 31230) 494 PERUL CD4/CD8 RATIO (test code = 46671) 0.31 Delfino Schumacher AustinCD4/CD8 LYMPHOCYTE [id number] 00:00:00* Test Item Value Reference Range Interpretation Comme nts ABSOLUTE LYMPHOCYTES (test c ode = 65863) 941 PERUL PERCENT CD4 (test code = 17470) 16.3 % ABSOLUTE CD4 (test code = 12260) 154 PERUL PERCENT CD8 (test code = 95818) 52.5 % ABSOLUTE CD8 (test code = 11614) 494 PERUL CD4/CD8 RATIO (test code = 89654) 0.31 Delfino Schumacher AustinCD4/CD8 LYMPHOCYTE [id number] 00:00:00* Test Item Value Reference Range Interpretation Comme nts ABSOLUTE LYMPHOCYTES (test c ode = 51960) 941 PERUL PERCENT CD4 (test code = 22599) 16.3 % ABSOLUTE CD4 (test code = 22533) 154 PERUL PERCENT CD8 (test code = 45908) 52.5 % ABSOLUTE CD8 (test code = 86608) 494 PERUL CD4/CD8 RATIO (test code = 05294) 0.31 Delfino Schumacher AustinCD4/CD8 LYMPHOCYTE [id number] 00:00:00* Test Item Value Reference Range Interpretation Comme nts ABSOLUTE LYMPHOCYTES (test c ode = 88299) 941 PERUL PERCENT CD4 (test code = 89023) 16.3 % ABSOLUTE CD4 (test code = 42791) 154 PERUL PERCENT CD8 (test code = 79493) 52.5 % ABSOLUTE CD8 (test code = 33505) 494 PERUL CD4/CD8 RATIO (test code = 31654) 0.31 Delfino Schumacher AustinCD4/CD8 LYMPHOCYTE [id number] 00:00:00* Test Item Value Reference Range Interpretation Comme nts ABSOLUTE LYMPHOCYTES (test c ode = 51205) 941 PERUL PERCENT CD4 (test code = 29113) 16.3 % ABSOLUTE CD4 (test code = 51800) 154 PERUL PERCENT CD8 (test code = 03539) 52.5 % ABSOLUTE CD8 (test code = 05739) 494 PERUL CD4/CD8 RATIO (test code = 51600) 0.31 Delfino Schumacher AustinCD4/CD8 LYMPHOCYTE [id number] 00:00:00* Test Item Value Reference Range Interpretation Comme nts ABSOLUTE LYMPHOCYTES (test c ode = 04344) 941 PERUL PERCENT CD4 (test code = 59829) 16.3 % ABSOLUTE CD4 (test code = 83530) 154 PERUL PERCENT CD8 (test code = 22506) 52.5 % ABSOLUTE CD8 (test code = 45485) 494 PERUL CD4/CD8 RATIO (test code = 94789) 0.31 Delfino Schumacher AustinCD4/CD8 LYMPHOCYTE [id number] 00:00:00* Test Item Value Reference Range Interpretation Comme nts ABSOLUTE LYMPHOCYTES (test c ode = 76160) 941 PERUL PERCENT CD4 (test code = 93610) 16.3 % ABSOLUTE CD4 (test code = 18080) 154 PERUL PERCENT CD8 (test code = 88018) 52.5 % ABSOLUTE CD8 (test code = 85300) 494 PERUL CD4/CD8 RATIO (test code = 96109) 0.31 Delfino Schumacher AustinCD4/CD8 LYMPHOCYTE [id number] 00:00:00* Test Item Value Reference Range Interpretation Comme nts ABSOLUTE LYMPHOCYTES (test c ode = 54617) 941 PERUL PERCENT CD4 (test code = 36210) 16.3 % ABSOLUTE CD4 (test code = 03464) 154 PERUL PERCENT CD8 (test code = 08517) 52.5 % ABSOLUTE CD8 (test code = 06555) 494 PERUL CD4/CD8 RATIO (test code = 14167) 0.31 Delfino Schumacher AustinCD4/CD8 LYMPHOCYTE [id number] 00:00:00* Test Item Value Reference Range Interpretation Comme nts ABSOLUTE LYMPHOCYTES (test c ode = 49281) 941 PERUL PERCENT CD4 (test code = 68262) 16.3 % ABSOLUTE CD4 (test code = 26857) 154 PERUL PERCENT CD8 (test code = 63382) 52.5 % ABSOLUTE CD8 (test code = 78679) 494 PERUL CD4/CD8 RATIO (test code = 23845) 0.31 Delfino Schumacher AustinCD4/CD8 LYMPHOCYTE [id number] 00:00:00* Test Item Value Reference Range Interpretation Comme nts ABSOLUTE LYMPHOCYTES (test c ode = 57579) 941 PERUL PERCENT CD4 (test code = 52492) 16.3 % ABSOLUTE CD4 (test code = 89924) 154 PERUL PERCENT CD8 (test code = 62906) 52.5 % ABSOLUTE CD8 (test code = 40527) 494 PERUL CD4/CD8 RATIO (test code = 32315) 0.31 Delfino Schumacher AustinCD4/CD8 LYMPHOCYTE [id number] 00:00:00* Test Item Value Reference Range Interpretation Comme nts ABSOLUTE LYMPHOCYTES (test c ode = 50410) 941 PERUL PERCENT CD4 (test code = 71376) 16.3 % ABSOLUTE CD4 (test code = 45237) 154 PERUL PERCENT CD8 (test code = 61528) 52.5 % ABSOLUTE CD8 (test code = 51652) 494 PERUL CD4/CD8 RATIO (test code = 40856) 0.31 Delfino Schumacher AustinCD4/CD8 LYMPHOCYTE [id number] 00:00:00* Test Item Value Reference Range Interpretation Comme nts ABSOLUTE LYMPHOCYTES (test c ode = 16662) 941 PERUL PERCENT CD4 (test code = 34417) 16.3 % ABSOLUTE CD4 (test code = 49276) 154 PERUL PERCENT CD8 (test code = 28865) 52.5 % ABSOLUTE CD8 (test code = 47575) 494 PERUL CD4/CD8 RATIO (test code = 46965) 0.31 Delfino Schumacher AustinCD4/CD8 LYMPHOCYTE [id number] 00:00:00* Test Item Value Reference Range Interpretation Comme nts ABSOLUTE LYMPHOCYTES (test c ode = 22789) 941 PERUL PERCENT CD4 (test code = 19149) 16.3 % ABSOLUTE CD4 (test code = 76351) 154 PERUL PERCENT CD8 (test code = 86230) 52.5 % ABSOLUTE CD8 (test code = 64056) 494 PERUL CD4/CD8 RATIO (test code = 38831) 0.31 Delfino Schumacher AustinCD4/CD8 LYMPHOCYTE [id number] 00:00:00* Test Item Value Reference Range Interpretation Comme nts ABSOLUTE LYMPHOCYTES (test c ode = 37970) 941 PERUL PERCENT CD4 (test code = 58091) 16.3 % ABSOLUTE CD4 (test code = 87991) 154 PERUL PERCENT CD8 (test code = 45947) 52.5 % ABSOLUTE CD8 (test code = 29360) 494 PERUL CD4/CD8 RATIO (test code = 99270) 0.31 Delfino Schumacher AustinCD4/CD8 LYMPHOCYTE [id number] 00:00:00* Test Item Value Reference Range Interpretation Comme nts ABSOLUTE LYMPHOCYTES (test c ode = 85873) 941 PERUL PERCENT CD4 (test code = 65112) 16.3 % ABSOLUTE CD4 (test code = 12230) 154 PERUL PERCENT CD8 (test code = 54982) 52.5 % ABSOLUTE CD8 (test code = 93594) 494 PERUL CD4/CD8 RATIO (test code = 37660) 0.31 Delfino Schumacher AustinCD4/CD8 LYMPHOCYTE [id number] 00:00:00* Test Item Value Reference Range Interpretation Comme nts ABSOLUTE LYMPHOCYTES (test c ode = 90646) 941 PERUL PERCENT CD4 (test code = 78091) 16.3 % ABSOLUTE CD4 (test code = 25952) 154 PERUL PERCENT CD8 (test code = 98895) 52.5 % ABSOLUTE CD8 (test code = 44567) 494 PERUL CD4/CD8 RATIO (test code = 31018) 0.31 Delfino Endy AustinCBC W/AUTO DIFF WITH [id number] 11:40:06* Test Item Value Reference Range Interpretation [...] 0.00-0.10 ABS NUCLEATED RBCS (test code = 43702) 0.00 K/UL 0.00-0.11 COMMENTS (test code = 1016) (NOTE) MODERATE MACROCY TOSIS SLIGHT TOXIC GRANULATION PLATELETS APPEAR NORMAL SEE ADDITIONAL COMMENTS BELOW: SLIGHT VACUOLIZATION OF NEUTROPHILS LIPID [id number] 05:24:56* Test Item Value Reference Range Interpretation [...] SPECIMENS. FOR MOREINFORMATION, SEE CLIENT ANNOUNCEMENT AT [email or web address] RISK RATIO LDL/HDL (test code = 2238) 0.91 RATIO <3.22 COMPREHENSIVE METABOLIC [id number] 05:24:56* Test Item Value Reference Range Interpretation Comme nts GLUCOSE (test code = 2217) 90 MG/DL 70-99 BUN (test code = 2208) 40 MG/DL 8-23 H CREATININE (test code = 2214) 2.05 MG/DL 0.60-1.30 H eGFR (2020 CKD-EPI) (test co de = 62114) 27 ML/MIN/1.73 >60 L CALC BUN/CREAT (test [...] code = 2219) 16 U/L 5-40 LIPID [id number] 00:00:00* Test Item Value Reference Range Interpretation Comme nts CHOLESTEROL (test code = 2210) 212 MG/DL TRIGLYCERIDES (test code = 2232) 80 MG/DL HDL CHOLESTEROL (test code = 2220) 102 MG/DL CALC LDL CHOL (test code = 2237) 93 MG/DL RISK RATIO LDL/HDL (test cod e = 2238) 0.91 RATIO Delfino Schumacher [facility] W/AUTO [id number] 00:00:00* Test Item Value Reference Range Interpretation [...] ABS NUCLEATED RBCS (test cod e = 91819) 0.00 K/UL COMMENTS (test code = 1016) (NOTE) Delfino OrtaCOMPREHENSIVE METABOLIC [id number] 00:00:00* Test Item Value Reference Range Interpretation Comme nts GLUCOSE (test code = 2217) 90 MG/DL BUN (test code = 2208) 40 MG/DL CREATININE (test code = 2214) 2.05 MG/DL eGFR (2020 CKD-EPI) (test co de = 81430) 27 ML/MIN/1.73 CALC BUN/CREAT (test code = [...] code = 2219) 16 U/L Delfino OrtaLIPID [id number] 00:00:00* Test Item Value Reference Range Interpretation Comme nts CHOLESTEROL (test code = 2210) 212 MG/DL TRIGLYCERIDES (test code = 2232) 80 MG/DL HDL CHOLESTEROL (test code = 2220) 102 MG/DL CALC LDL CHOL (test code = 2237) 93 MG/DL RISK RATIO LDL/HDL (test cod e = 2238) 0.91 RATIO Delfino OrtaCBC W/AUTO [id number] 00:00:00* Test Item Value Reference Range Interpretation [...] ABS NUCLEATED RBCS (test cod e = 31051) 0.00 K/UL COMMENTS (test code = 1016) (NOTE) Delfino OrtaCOMPREHENSIVE METABOLIC [id number] 00:00:00* Test Item Value Reference Range Interpretation Comme nts GLUCOSE (test code = 2217) 90 MG/DL BUN (test code = 2208) 40 MG/DL CREATININE (test code = 2214) 2.05 MG/DL eGFR (2020 CKD-EPI) (test co de = 93828) 27 ML/MIN/1.73 CALC BUN/CREAT (test code = [...] code = 2219) 16 U/L Delfino OrtaLIPID [id number] 00:00:00* Test Item Value Reference Range Interpretation Comme nts CHOLESTEROL (test code = 2210) 212 MG/DL TRIGLYCERIDES (test code = 2232) 80 MG/DL HDL CHOLESTEROL (test code = 2220) 102 MG/DL CALC LDL CHOL (test code = 2237) 93 MG/DL RISK RATIO LDL/HDL (test cod e = 2238) 0.91 RATIO Delfino OrtaCBC W/AUTO [id number] 00:00:00* Test Item Value Reference Range Interpretation [...] ABS NUCLEATED RBCS (test cod e = 71786) 0.00 K/UL COMMENTS (test code = 1016) (NOTE) Delfino OrtaCOMPREHENSIVE METABOLIC [id number] 00:00:00* Test Item Value Reference Range Interpretation Comme nts GLUCOSE (test code = 2217) 90 MG/DL BUN (test code = 2208) 40 MG/DL CREATININE (test code = 2214) 2.05 MG/DL eGFR (2020 CKD-EPI) (test co de = 83343) 27 ML/MIN/1.73 CALC BUN/CREAT (test code = [...] code = 2219) 16 U/L Delfino OrtaLIPID [id number] 00:00:00* Test Item Value Reference Range Interpretation Comme nts CHOLESTEROL (test code = 2210) 212 MG/DL TRIGLYCERIDES (test code = 2232) 80 MG/DL HDL CHOLESTEROL (test code = 2220) 102 MG/DL CALC LDL CHOL (test code = 2237) 93 MG/DL RISK RATIO LDL/HDL (test cod e = 2238) 0.91 RATIO Delfino OrtaCBC W/AUTO [id number] 00:00:00* Test Item Value Reference Range Interpretation [...] ABS NUCLEATED RBCS (test cod e = 33195) 0.00 K/UL COMMENTS (test code = 1016) (NOTE) Delfino OrtaCOMPREHENSIVE METABOLIC [id number] 00:00:00* Test Item Value Reference Range Interpretation Comme nts GLUCOSE (test code = 2217) 90 MG/DL BUN (test code = 2208) 40 MG/DL CREATININE (test code = 2214) 2.05 MG/DL eGFR (2020 CKD-EPI) (test co de = 71480) 27 ML/MIN/1.73 CALC BUN/CREAT (test code = [...] code = 2219) 16 U/L Delfino OrtaLIPID [id number] 00:00:00* Test Item Value Reference Range Interpretation Comme nts CHOLESTEROL (test code = 2210) 212 MG/DL TRIGLYCERIDES (test code = 2232) 80 MG/DL HDL CHOLESTEROL (test code = 2220) 102 MG/DL CALC LDL CHOL (test code = 2237) 93 MG/DL RISK RATIO LDL/HDL (test cod e = 2238) 0.91 RATIO Delfino OrtaCBC W/AUTO [id number] 00:00:00* Test Item Value Reference Range Interpretation [...] ABS NUCLEATED RBCS (test cod e = 75056) 0.00 K/UL COMMENTS (test code = 1016) (NOTE) Delfino OrtaCOMPREHENSIVE METABOLIC [id number] 00:00:00* Test Item Value Reference Range Interpretation Comme nts GLUCOSE (test code = 2217) 90 MG/DL BUN (test code = 2208) 40 MG/DL CREATININE (test code = 2214) 2.05 MG/DL eGFR (2020 CKD-EPI) (test co de = 20505) 27 ML/MIN/1.73 CALC BUN/CREAT (test code = [...] code = 2219) 16 U/L Delfino OrtaLIPID [id number] 00:00:00* Test Item Value Reference Range Interpretation Comme nts CHOLESTEROL (test code = 2210) 212 MG/DL TRIGLYCERIDES (test code = 2232) 80 MG/DL HDL CHOLESTEROL (test code = 2220) 102 MG/DL CALC LDL CHOL (test code = 2237) 93 MG/DL RISK RATIO LDL/HDL (test cod e = 2238) 0.91 RATIO Delfino Schumacher [facility] W/AUTO [id number] 00:00:00* Test Item Value Reference Range Interpretation [...] ABS NUCLEATED RBCS (test cod e = 70513) 0.00 K/UL COMMENTS (test code = 1016) (NOTE) Delfino OrtaCOMPREHENSIVE METABOLIC [id number] 00:00:00* Test Item Value Reference Range Interpretation Comme nts GLUCOSE (test code = 2217) 90 MG/DL BUN (test code = 2208) 40 MG/DL CREATININE (test code = 2214) 2.05 MG/DL eGFR (2020 CKD-EPI) (test co de = 30203) 27 ML/MIN/1.73 CALC BUN/CREAT (test code = [...] code = 2219) 16 U/L Delfino OrtaLIPID [id number] 00:00:00* Test Item Value Reference Range Interpretation Comme nts CHOLESTEROL (test code = 2210) 212 MG/DL TRIGLYCERIDES (test code = 2232) 80 MG/DL HDL CHOLESTEROL (test code = 2220) 102 MG/DL CALC LDL CHOL (test code = 2237) 93 MG/DL RISK RATIO LDL/HDL (test cod e = 2238) 0.91 RATIO Delfino OrtaCBC W/AUTO [id number] 00:00:00* Test Item Value Reference Range Interpretation [...] ABS NUCLEATED RBCS (test cod e = 13229) 0.00 K/UL COMMENTS (test code = 1016) (NOTE) Delfino OrtaCOMPREHENSIVE METABOLIC [id number] 00:00:00* Test Item Value Reference Range Interpretation Comme nts GLUCOSE (test code = 2217) 90 MG/DL BUN (test code = 2208) 40 MG/DL CREATININE (test code = 2214) 2.05 MG/DL eGFR (2020 CKD-EPI) (test co de = 12276) 27 ML/MIN/1.73 CALC BUN/CREAT (test code = [...] code = 2219) 16 U/L Delfino OrtaLIPID [id number] 00:00:00* Test Item Value Reference Range Interpretation Comme nts CHOLESTEROL (test code = 2210) 212 MG/DL TRIGLYCERIDES (test code = 2232) 80 MG/DL HDL CHOLESTEROL (test code = 2220) 102 MG/DL CALC LDL CHOL (test code = 2237) 93 MG/DL RISK RATIO LDL/HDL (test cod e = 2238) 0.91 RATIO Delfino OrtaCBC W/AUTO [id number] 00:00:00* Test Item Value Reference Range Interpretation [...] ABS NUCLEATED RBCS (test cod e = 44900) 0.00 K/UL COMMENTS (test code = 1016) (NOTE) Delfino OrtaCOMPREHENSIVE METABOLIC [id number] 00:00:00* Test Item Value Reference Range Interpretation Comme nts GLUCOSE (test code = 2217) 90 MG/DL BUN (test code = 2208) 40 MG/DL CREATININE (test code = 2214) 2.05 MG/DL eGFR (2020 CKD-EPI) (test co de = 18354) 27 ML/MIN/1.73 CALC BUN/CREAT (test code = [...] code = 2219) 16 U/L Delfino OrtaLIPID [id number] 00:00:00* Test Item Value Reference Range Interpretation Comme nts CHOLESTEROL (test code = 2210) 212 MG/DL TRIGLYCERIDES (test code = 2232) 80 MG/DL HDL CHOLESTEROL (test code = 2220) 102 MG/DL CALC LDL CHOL (test code = 2237) 93 MG/DL RISK RATIO LDL/HDL (test cod e = 2238) 0.91 RATIO Delfino OrtaCBC W/AUTO [id number] 00:00:00* Test Item Value Reference Range Interpretation [...] ABS NUCLEATED RBCS (test cod e = 42810) 0.00 K/UL COMMENTS (test code = 1016) (NOTE) Delfino OrtaCOMPREHENSIVE METABOLIC [id number] 00:00:00* Test Item Value Reference Range Interpretation Comme nts GLUCOSE (test code = 2217) 90 MG/DL BUN (test code = 2208) 40 MG/DL CREATININE (test code = 2214) 2.05 MG/DL eGFR (2020 CKD-EPI) (test co de = 98830) 27 ML/MIN/1.73 CALC BUN/CREAT (test code = [...] code = 2219) 16 U/L Delfino OrtaLIPID [id number] 00:00:00* Test Item Value Reference Range Interpretation Comme nts CHOLESTEROL (test code = 2210) 212 MG/DL TRIGLYCERIDES (test code = 2232) 80 MG/DL HDL CHOLESTEROL (test code = 2220) 102 MG/DL CALC LDL CHOL (test code = 2237) 93 MG/DL RISK RATIO LDL/HDL (test cod e = 2238) 0.91 RATIO Delfino OrtaCBC W/AUTO [id number] 00:00:00* Test Item Value Reference Range Interpretation [...] ABS NUCLEATED RBCS (test cod e = 83980) 0.00 K/UL COMMENTS (test code = 1016) (NOTE) Delfino OrtaCOMPREHENSIVE METABOLIC [id number] 00:00:00* Test Item Value Reference Range Interpretation Comme nts GLUCOSE (test code = 2217) 90 MG/DL BUN (test code = 2208) 40 MG/DL CREATININE (test code = 2214) 2.05 MG/DL eGFR (2020 CKD-EPI) (test co de = 43882) 27 ML/MIN/1.73 CALC BUN/CREAT (test code = [...] code = 2219) 16 U/L Delfino OrtaLIPID [id number] 00:00:00* Test Item Value Reference Range Interpretation Comme nts CHOLESTEROL (test code = 2210) 212 MG/DL TRIGLYCERIDES (test code = 2232) 80 MG/DL HDL CHOLESTEROL (test code = 2220) 102 MG/DL CALC LDL CHOL (test code = 2237) 93 MG/DL RISK RATIO LDL/HDL (test cod e = 2238) 0.91 RATIO Delfino OrtaCBC W/AUTO [id number] 00:00:00* Test Item Value Reference Range Interpretation [...] ABS NUCLEATED RBCS (test cod e = 95846) 0.00 K/UL COMMENTS (test code = 1016) (NOTE) Delfino OrtaCOMPREHENSIVE METABOLIC [id number] 00:00:00* Test Item Value Reference Range Interpretation Comme nts GLUCOSE (test code = 2217) 90 MG/DL BUN (test code = 2208) 40 MG/DL CREATININE (test code = 2214) 2.05 MG/DL eGFR (2020 CKD-EPI) (test co de = 05474) 27 ML/MIN/1.73 CALC BUN/CREAT (test code = [...] code = 2219) 16 U/L Delfino OrtaLIPID [id number] 00:00:00* Test Item Value Reference Range Interpretation Comme nts CHOLESTEROL (test code = 2210) 212 MG/DL TRIGLYCERIDES (test code = 2232) 80 MG/DL HDL CHOLESTEROL (test code = 2220) 102 MG/DL CALC LDL CHOL (test code = 2237) 93 MG/DL RISK RATIO LDL/HDL (test cod e = 2238) 0.91 RATIO Delfino OrtaCBC W/AUTO [id number] 00:00:00* Test Item Value Reference Range Interpretation [...] ABS NUCLEATED RBCS (test cod e = 50358) 0.00 K/UL COMMENTS (test code = 1016) (NOTE) Delfino OrtaCOMPREHENSIVE METABOLIC [id number] 00:00:00* Test Item Value Reference Range Interpretation Comme nts GLUCOSE (test code = 2217) 90 MG/DL BUN (test code = 2208) 40 MG/DL CREATININE (test code = 2214) 2.05 MG/DL eGFR (2020 CKD-EPI) (test co de = 49671) 27 ML/MIN/1.73 CALC BUN/CREAT (test code = [...] code = 2219) 16 U/L Delfino OrtaLIPID [id number] 00:00:00* Test Item Value Reference Range Interpretation Comme nts CHOLESTEROL (test code = 2210) 212 MG/DL TRIGLYCERIDES (test code = 2232) 80 MG/DL HDL CHOLESTEROL (test code = 2220) 102 MG/DL CALC LDL CHOL (test code = 2237) 93 MG/DL RISK RATIO LDL/HDL (test cod e = 2238) 0.91 RATIO Delfino OrtaCBC W/AUTO [id number] 00:00:00* Test Item Value Reference Range Interpretation [...] ABS NUCLEATED RBCS (test cod e = 42238) 0.00 K/UL COMMENTS (test code = 1016) (NOTE) Delfino OrtaCOMPREHENSIVE METABOLIC [id number] 00:00:00* Test Item Value Reference Range Interpretation Comme nts GLUCOSE (test code = 2217) 90 MG/DL BUN (test code = 2208) 40 MG/DL CREATININE (test code = 2214) 2.05 MG/DL eGFR (2020 CKD-EPI) (test co de = 63248) 27 ML/MIN/1.73 CALC BUN/CREAT (test code = [...] code = 2219) 16 U/L Delfino OrtaLIPID [id number] 00:00:00* Test Item Value Reference Range Interpretation Comme nts CHOLESTEROL (test code = 2210) 212 MG/DL TRIGLYCERIDES (test code = 2232) 80 MG/DL HDL CHOLESTEROL (test code = 2220) 102 MG/DL CALC LDL CHOL (test code = 2237) 93 MG/DL RISK RATIO LDL/HDL (test cod e = 2238) 0.91 RATIO Delfino OrtaCBC W/AUTO [id number] 00:00:00* Test Item Value Reference Range Interpretation [...] ABS NUCLEATED RBCS (test cod e = 03901) 0.00 K/UL COMMENTS (test code = 1016) (NOTE) Delfino OrtaCOMPREHENSIVE METABOLIC [id number] 00:00:00* Test Item Value Reference Range Interpretation Comme nts GLUCOSE (test code = 2217) 90 MG/DL BUN (test code = 2208) 40 MG/DL CREATININE (test code = 2214) 2.05 MG/DL eGFR (2020 CKD-EPI) (test co de = 62388) 27 ML/MIN/1.73 CALC BUN/CREAT (test code = [...] code = 2219) 16 U/L Delfino OrtaLIPID [id number] 00:00:00* Test Item Value Reference Range Interpretation Comme nts CHOLESTEROL (test code = 2210) 212 MG/DL TRIGLYCERIDES (test code = 2232) 80 MG/DL HDL CHOLESTEROL (test code = 2220) 102 MG/DL CALC LDL CHOL (test code = 2237) 93 MG/DL RISK RATIO LDL/HDL (test cod e = 2238) 0.91 RATIO Delfino OrtaCBC W/AUTO [id number] 00:00:00* Test Item Value Reference Range Interpretation [...] ABS NUCLEATED RBCS (test cod e = 50825) 0.00 K/UL COMMENTS (test code = 1016) (NOTE) Delfino OrtaCOMPREHENSIVE METABOLIC [id number] 00:00:00* Test Item Value Reference Range Interpretation Comme nts GLUCOSE (test code = 2217) 90 MG/DL BUN (test code = 2208) 40 MG/DL CREATININE (test code = 2214) 2.05 MG/DL eGFR (2020 CKD-EPI) (test co de = 46609) 27 ML/MIN/1.73 CALC BUN/CREAT (test code = [...] code = 2219) 16 U/L Delfino OrtaLIPID [id number] 00:00:00* Test Item Value Reference Range Interpretation Comme nts CHOLESTEROL (test code = 2210) 212 MG/DL TRIGLYCERIDES (test code = 2232) 80 MG/DL HDL CHOLESTEROL (test code = 2220) 102 MG/DL CALC LDL CHOL (test code = 2237) 93 MG/DL RISK RATIO LDL/HDL (test cod e = 2238) 0.91 RATIO Delfino OrtaCBC W/AUTO [id number] 00:00:00* Test Item Value Reference Range Interpretation [...] ABS NUCLEATED RBCS (test cod e = 37386) 0.00 K/UL COMMENTS (test code = 1016) (NOTE) Delfino OrtaCOMPREHENSIVE METABOLIC [id number] 00:00:00* Test Item Value Reference Range Interpretation Comme nts GLUCOSE (test code = 2217) 90 MG/DL BUN (test code = 2208) 40 MG/DL CREATININE (test code = 2214) 2.05 MG/DL eGFR (2020 CKD-EPI) (test co de = 06349) 27 ML/MIN/1.73 CALC BUN/CREAT (test code = [...] code = 2219) 16 U/L Delfino OrtaLIPID [id number] 00:00:00* Test Item Value Reference Range Interpretation Comme nts CHOLESTEROL (test code = 2210) 212 MG/DL TRIGLYCERIDES (test code = 2232) 80 MG/DL HDL CHOLESTEROL (test code = 2220) 102 MG/DL CALC LDL CHOL (test code = 2237) 93 MG/DL RISK RATIO LDL/HDL (test cod e = 2238) 0.91 RATIO Delfino OrtaCBC W/AUTO [id number] 00:00:00* Test Item Value Reference Range Interpretation [...] ABS NUCLEATED RBCS (test cod e = 49747) 0.00 K/UL COMMENTS (test code = 1016) (NOTE) Delfino OrtaCOMPREHENSIVE METABOLIC [id number] 00:00:00* Test Item Value Reference Range Interpretation Comme nts GLUCOSE (test code = 2217) 90 MG/DL BUN (test code = 2208) 40 MG/DL CREATININE (test code = 2214) 2.05 MG/DL eGFR (2020 CKD-EPI) (test co de = 89587) 27 ML/MIN/1.73 CALC BUN/CREAT (test code = [...] code = 2219) 16 U/L Delfino OrtaLIPID [id number] 00:00:00* Test Item Value Reference Range Interpretation Comme nts CHOLESTEROL (test code = 2210) 212 MG/DL TRIGLYCERIDES (test code = 2232) 80 MG/DL HDL CHOLESTEROL (test code = 2220) 102 MG/DL CALC LDL CHOL (test code = 2237) 93 MG/DL RISK RATIO LDL/HDL (test cod e = 2238) 0.91 RATIO Delfino OrtaCBC W/AUTO [id number] 00:00:00* Test Item Value Reference Range Interpretation [...] ABS NUCLEATED RBCS (test cod e = 55938) 0.00 K/UL COMMENTS (test code = 1016) (NOTE) Delfino OrtaCOMPREHENSIVE METABOLIC [id number] 00:00:00* Test Item Value Reference Range Interpretation Comme nts GLUCOSE (test code = 2217) 90 MG/DL BUN (test code = 2208) 40 MG/DL CREATININE (test code = 2214) 2.05 MG/DL eGFR (2020 CKD-EPI) (test co de = 82521) 27 ML/MIN/1.73 CALC BUN/CREAT (test code = [...] code = 2219) 16 U/L Delfino OrtaLIPID [id number] 00:00:00* Test Item Value Reference Range Interpretation Comme nts CHOLESTEROL (test code = 2210) 212 MG/DL TRIGLYCERIDES (test code = 2232) 80 MG/DL HDL CHOLESTEROL (test code = 2220) 102 MG/DL CALC LDL CHOL (test code = 2237) 93 MG/DL RISK RATIO LDL/HDL (test cod e = 2238) 0.91 RATIO Delfino OrtaCBC W/AUTO [id number] 00:00:00* Test Item Value Reference Range Interpretation [...] ABS NUCLEATED RBCS (test cod e = 26657) 0.00 K/UL COMMENTS (test code = 1016) (NOTE) Delfino OrtaCOMPREHENSIVE METABOLIC [id number] 00:00:00* Test Item Value Reference Range Interpretation Comme nts GLUCOSE (test code = 2217) 90 MG/DL BUN (test code = 2208) 40 MG/DL CREATININE (test code = 2214) 2.05 MG/DL eGFR (2020 CKD-EPI) (test co de = 71228) 27 ML/MIN/1.73 CALC BUN/CREAT (test code = [...] code = 2219) 16 U/L Delfino OrtaLIPID [id number] 00:00:00* Test Item Value Reference Range Interpretation Comme nts CHOLESTEROL (test code = 2210) 212 MG/DL TRIGLYCERIDES (test code = 2232) 80 MG/DL HDL CHOLESTEROL (test code = 2220) 102 MG/DL CALC LDL CHOL (test code = 2237) 93 MG/DL RISK RATIO LDL/HDL (test cod e = 2238) 0.91 RATIO Delfino OrtaCBC W/AUTO [id number] 00:00:00* Test Item Value Reference Range Interpretation [...] ABS NUCLEATED RBCS (test cod e = 74944) 0.00 K/UL COMMENTS (test code = 1016) (NOTE) Delfino OrtaCOMPREHENSIVE METABOLIC [id number] 00:00:00* Test Item Value Reference Range Interpretation Comme nts GLUCOSE (test code = 2217) 90 MG/DL BUN (test code = 2208) 40 MG/DL CREATININE (test code = 2214) 2.05 MG/DL eGFR (2020 CKD-EPI) (test co de = 94251) 27 ML/MIN/1.73 CALC BUN/CREAT (test code = [...] code = 2219) 16 U/L Delfino OrtaLIPID [id number] 00:00:00* Test Item Value Reference Range Interpretation Comme nts CHOLESTEROL (test code = 2210) 212 MG/DL TRIGLYCERIDES (test code = 2232) 80 MG/DL HDL CHOLESTEROL (test code = 2220) 102 MG/DL CALC LDL CHOL (test code = 2237) 93 MG/DL RISK RATIO LDL/HDL (test cod e = 2238) 0.91 RATIO Delfino OrtaCBC W/AUTO [id number] 00:00:00* Test Item Value Reference Range Interpretation [...] ABS NUCLEATED RBCS (test cod e = 23072) 0.00 K/UL COMMENTS (test code = 1016) (NOTE) Delfino OrtaCOMPREHENSIVE METABOLIC [id number] 00:00:00* Test Item Value Reference Range Interpretation Comme nts GLUCOSE (test code = 2217) 90 MG/DL BUN (test code = 2208) 40 MG/DL CREATININE (test code = 2214) 2.05 MG/DL eGFR (2020 CKD-EPI) (test co de = 80534) 27 ML/MIN/1.73 CALC BUN/CREAT (test code = [...] (test code = 2219) 16 U/L Delfino OtraLIPID [id number] 00:00:00* Test Item Value Reference Range Interpretation Comme nts CHOLESTEROL (test code = 2210) 212 MG/DL TRIGLYCERIDES (test code = 2232) 80 MG/DL HDL CHOLESTEROL (test code = 2220) 102 MG/DL CALC LDL CHOL (test code = 2237) 93 MG/DL RISK RATIO LDL/HDL (test cod e = 2238) 0.91 RATIO Delfino OrtaCBC W/AUTO [id number] 00:00:00* Test Item Value Reference Range Interpretation [...] ABS NUCLEATED RBCS (test cod e = 55750) 0.00 K/UL COMMENTS (test code = 1016) (NOTE) Delfino OrtaCOMPREHENSIVE METABOLIC [id number] 00:00:00* Test Item Value Reference Range Interpretation Comme nts GLUCOSE (test code = 2217) 90 MG/DL BUN (test code = 2208) 40 MG/DL CREATININE (test code = 2214) 2.05 MG/DL eGFR (2020 CKD-EPI) (test co de = 78809) 27 ML/MIN/1.73 CALC BUN/CREAT (test code = [...] code = 2219) 16 U/L Delfino OrtaLIPID [id number] 00:00:00* Test Item Value Reference Range Interpretation Comme nts CHOLESTEROL (test code = 2210) 212 MG/DL TRIGLYCERIDES (test code = 2232) 80 MG/DL HDL CHOLESTEROL (test code = 2220) 102 MG/DL CALC LDL CHOL (test code = 2237) 93 MG/DL RISK RATIO LDL/HDL (test cod e = 2238) 0.91 RATIO Delfino OrtaCBC W/AUTO [id number] 00:00:00* Test Item Value Reference Range Interpretation [...] ABS NUCLEATED RBCS (test cod e = 69463) 0.00 K/UL COMMENTS (test code = 1016) (NOTE) Delfino OrtaCOMPREHENSIVE METABOLIC [id number] 00:00:00* Test Item Value Reference Range Interpretation Comme nts GLUCOSE (test code = 2217) 90 MG/DL BUN (test code = 2208) 40 MG/DL CREATININE (test code = 2214) 2.05 MG/DL eGFR (2020 CKD-EPI) (test co de = 37565) 27 ML/MIN/1.73 CALC BUN/CREAT (test code = [...] = 2219) 16 U/L Delfino Schumacher YouLIPID [id number] 00:00:00* Test Item Value Reference Range Interpretation Comme nts CHOLESTEROL (test code = 2210) 212 MG/DL TRIGLYCERIDES (test code = 2232) 80 MG/DL HDL CHOLESTEROL (test code = 2220) 102 MG/DL CALC LDL CHOL (test code = 2237) 93 MG/DL RISK RATIO LDL/HDL (test cod e = 2238) 0.91 RATIO Delfino Schumacher YouCBC W/AUTO [id number] 00:00:00* Test Item Value Reference Range Interpretation [...] ABS NUCLEATED RBCS (test cod e = 69381) 0.00 K/UL COMMENTS (test code = 1016) (NOTE) Delfino OrtaCOMPREHENSIVE METABOLIC [id number] 00:00:00* Test Item Value Reference Range Interpretation Comme nts GLUCOSE (test code = 2217) 90 MG/DL BUN (test code = 2208) 40 MG/DL CREATININE (test code = 2214) 2.05 MG/DL eGFR (2020 CKD-EPI) (test co de = 70076) 27 ML/MIN/1.73 CALC BUN/CREAT (test code = [...] code = 2219) 16 U/L Delfino OrtaLIPID [id number] 00:00:00* Test Item Value Reference Range Interpretation Comme nts CHOLESTEROL (test code = 2210) 212 MG/DL TRIGLYCERIDES (test code = 2232) 80 MG/DL HDL CHOLESTEROL (test code = 2220) 102 MG/DL CALC LDL CHOL (test code = 2237) 93 MG/DL RISK RATIO LDL/HDL (test cod e = 2238) 0.91 RATIO Delfino OrtaCBC W/AUTO [id number] 00:00:00* Test Item Value Reference Range Interpretation [...] ABS NUCLEATED RBCS (test cod e = 10477) 0.00 K/UL COMMENTS (test code = 1016) (NOTE) Delfino OrtaCOMPREHENSIVE METABOLIC [id number] 00:00:00* Test Item Value Reference Range Interpretation Comme nts GLUCOSE (test code = 2217) 90 MG/DL BUN (test code = 2208) 40 MG/DL CREATININE (test code = 2214) 2.05 MG/DL eGFR (2020 CKD-EPI) (test co de = 82589) 27 ML/MIN/1.73 CALC BUN/CREAT (test code = [...] code = 2219) 16 U/L Delfino OrtaLIPID [id number] 00:00:00* Test Item Value Reference Range Interpretation Comme nts CHOLESTEROL (test code = 2210) 212 MG/DL TRIGLYCERIDES (test code = 2232) 80 MG/DL HDL CHOLESTEROL (test code = 2220) 102 MG/DL CALC LDL CHOL (test code = 2237) 93 MG/DL RISK RATIO LDL/HDL (test cod e = 2238) 0.91 RATIO Delfino Endy YouCBC W/AUTO [id number] 00:00:00* Test Item Value Reference Range Interpretation [...] ABS NUCLEATED RBCS (test cod e = 81009) 0.00 K/UL COMMENTS (test code = 1016) (NOTE) Delfino OrtaCOMPREHENSIVE METABOLIC [id number] 00:00:00* Test Item Value Reference Range Interpretation Comme nts GLUCOSE (test code = 2217) 90 MG/DL BUN (test code = 2208) 40 MG/DL CREATININE (test code = 2214) 2.05 MG/DL eGFR (2020 CKD-EPI) (test co de = 99143) 27 ML/MIN/1.73 CALC BUN/CREAT (test code = [...] code = 2219) 16 U/L Delfino OrtaLIPID [id number] 00:00:00* Test Item Value Reference Range Interpretation Comme nts CHOLESTEROL (test code = 2210) 212 MG/DL TRIGLYCERIDES (test code = 2232) 80 MG/DL HDL CHOLESTEROL (test code = 2220) 102 MG/DL CALC LDL CHOL (test code = 2237) 93 MG/DL RISK RATIO LDL/HDL (test cod e = 2238) 0.91 RATIO Delfino OrtaCBC W/AUTO [id number] 00:00:00* Test Item Value Reference Range Interpretation [...] ABS NUCLEATED RBCS (test cod e = 91856) 0.00 K/UL COMMENTS (test code = 1016) (NOTE) Delfino OrtaCOMPREHENSIVE METABOLIC [id number] 00:00:00* Test Item Value Reference Range Interpretation Comme nts GLUCOSE (test code = 2217) 90 MG/DL BUN (test code = 2208) 40 MG/DL CREATININE (test code = 2214) 2.05 MG/DL eGFR (2020 CKD-EPI) (test co de = 79922) 27 ML/MIN/1.73 CALC BUN/CREAT (test code = [...] code = 2219) 16 U/L Delfino OrtaLIPID [id number] 00:00:00* Test Item Value Reference Range Interpretation Comme nts CHOLESTEROL (test code = 2210) 212 MG/DL TRIGLYCERIDES (test code = 2232) 80 MG/DL HDL CHOLESTEROL (test code = 2220) 102 MG/DL CALC LDL CHOL (test code = 2237) 93 MG/DL RISK RATIO LDL/HDL (test cod e = 2238) 0.91 RATIO Delfino OrtaCBC W/AUTO [id number] 00:00:00* Test Item Value Reference Range Interpretation [...] ABS NUCLEATED RBCS (test cod e = 84787) 0.00 K/UL COMMENTS (test code = 1016) (NOTE) Delfino OrtaCOMPREHENSIVE METABOLIC [id number] 00:00:00* Test Item Value Reference Range Interpretation Comme nts GLUCOSE (test code = 2217) 90 MG/DL BUN (test code = 2208) 40 MG/DL CREATININE (test code = 2214) 2.05 MG/DL eGFR (2020 CKD-EPI) (test co de = 92373) 27 ML/MIN/1.73 CALC BUN/CREAT (test code = [...] code = 2219) 16 U/L Delfino OrtaLIPID [id number] 00:00:00* Test Item Value Reference Range Interpretation Comme nts CHOLESTEROL (test code = 2210) 212 MG/DL TRIGLYCERIDES (test code = 2232) 80 MG/DL HDL CHOLESTEROL (test code = 2220) 102 MG/DL CALC LDL CHOL (test code = 2237) 93 MG/DL RISK RATIO LDL/HDL (test cod e = 2238) 0.91 RATIO Delfino OrtaCBC W/AUTO [id number] 00:00:00* Test Item Value Reference Range Interpretation [...] ABS NUCLEATED RBCS (test cod e = 13769) 0.00 K/UL COMMENTS (test code = 1016) (NOTE) Delfino OrtaCOMPREHENSIVE METABOLIC [id number] 00:00:00* Test Item Value Reference Range Interpretation Comme nts GLUCOSE (test code = 2217) 90 MG/DL BUN (test code = 2208) 40 MG/DL CREATININE (test code = 2214) 2.05 MG/DL eGFR (2020 CKD-EPI) (test co de = 81647) 27 ML/MIN/1.73 CALC BUN/CREAT (test code = [...] code = 2219) 16 U/L Delfino OrtaLIPID [id number] 00:00:00* Test Item Value Reference Range Interpretation Comme nts CHOLESTEROL (test code = 2210) 212 MG/DL TRIGLYCERIDES (test code = 2232) 80 MG/DL HDL CHOLESTEROL (test code = 2220) 102 MG/DL CALC LDL CHOL (test code = 2237) 93 MG/DL RISK RATIO LDL/HDL (test cod e = 2238) 0.91 RATIO Delfino OrtaCBC W/AUTO [id number] 00:00:00* Test Item Value Reference Range Interpretation [...] ABS NUCLEATED RBCS (test cod e = 35116) 0.00 K/UL COMMENTS (test code = 1016) (NOTE) Delfino OrtaCOMPREHENSIVE METABOLIC [id number] 00:00:00* Test Item Value Reference Range Interpretation Comme nts GLUCOSE (test code = 2217) 90 MG/DL BUN (test code = 2208) 40 MG/DL CREATININE (test code = 2214) 2.05 MG/DL eGFR (2020 CKD-EPI) (test co de = 66429) 27 ML/MIN/1.73 CALC BUN/CREAT (test code = [...] code = 2219) 16 U/L Delfino OrtaLIPID [id number] 00:00:00* Test Item Value Reference Range Interpretation Comme nts CHOLESTEROL (test code = 2210) 212 MG/DL TRIGLYCERIDES (test code = 2232) 80 MG/DL HDL CHOLESTEROL (test code = 2220) 102 MG/DL CALC LDL CHOL (test code = 2237) 93 MG/DL RISK RATIO LDL/HDL (test cod e = 2238) 0.91 RATIO Delfino OrtaCBC W/AUTO [id number] 00:00:00* Test Item Value Reference Range Interpretation [...] ABS NUCLEATED RBCS (test cod e = 38016) 0.00 K/UL COMMENTS (test code = 1016) (NOTE) Delfino OrtaCOMPREHENSIVE METABOLIC [id number] 00:00:00* Test Item Value Reference Range Interpretation Comme nts GLUCOSE (test code = 2217) 90 MG/DL BUN (test code = 2208) 40 MG/DL CREATININE (test code = 2214) 2.05 MG/DL eGFR (2020 CKD-EPI) (test co de = 46585) 27 ML/MIN/1.73 CALC BUN/CREAT (test code = [...] code = 2219) 16 U/L Delfino OrtaLIPID [id number] 00:00:00* Test Item Value Reference Range Interpretation Comme nts CHOLESTEROL (test code = 2210) 212 MG/DL TRIGLYCERIDES (test code = 2232) 80 MG/DL HDL CHOLESTEROL (test code = 2220) 102 MG/DL CALC LDL CHOL (test code = 2237) 93 MG/DL RISK RATIO LDL/HDL (test cod e = 2238) 0.91 RATIO Delfino OrtaCBC W/AUTO [id number] 00:00:00* Test Item Value Reference Range Interpretation [...] ABS NUCLEATED RBCS (test cod e = 17342) 0.00 K/UL COMMENTS (test code = 1016) (NOTE) Delfino OrtaCOMPREHENSIVE METABOLIC [id number] 00:00:00* Test Item Value Reference Range Interpretation Comme nts GLUCOSE (test code = 2217) 90 MG/DL BUN (test code = 2208) 40 MG/DL CREATININE (test code = 2214) 2.05 MG/DL eGFR (2020 CKD-EPI) (test co de = 92431) 27 ML/MIN/1.73 CALC BUN/CREAT (test code = [...] code = 2219) 16 U/L Delfino OrtaLIPID [id number] 00:00:00* Test Item Value Reference Range Interpretation Comme nts CHOLESTEROL (test code = 2210) 212 MG/DL TRIGLYCERIDES (test code = 2232) 80 MG/DL HDL CHOLESTEROL (test code = 2220) 102 MG/DL CALC LDL CHOL (test code = 2237) 93 MG/DL RISK RATIO LDL/HDL (test cod e = 2238) 0.91 RATIO Delfino OrtaCBC W/AUTO [id number] 00:00:00* Test Item Value Reference Range Interpretation [...] ABS NUCLEATED RBCS (test cod e = 00686) 0.00 K/UL COMMENTS (test code = 1016) (NOTE) Delfino OrtaCOMPREHENSIVE METABOLIC [id number] 00:00:00* Test Item Value Reference Range Interpretation Comme nts GLUCOSE (test code = 2217) 90 MG/DL BUN (test code = 2208) 40 MG/DL CREATININE (test code = 2214) 2.05 MG/DL eGFR (2020 CKD-EPI) (test co de = 03500) 27 ML/MIN/1.73 CALC BUN/CREAT (test code = [...] code = 2219) 16 U/L Delfino [facility] with [id number] 19:43:14* Test Item Value Reference Range Interpretation Comme [facility] WBC (test code = 6690-2) 7.67 4.30-11.10 RBC (test code = 789-8) 3.40 3.93-5.25 L HGB (test code = 718-7) 12.5 g/dL 11.6-15.0 HCT (test code = 4544-3) 37.2 % 35.7-45.2 MCV (test code = 787-2) 109.4 fL 80.6-95.5 H MCH (test code = 785-6) 36.8 pg 25.9-32.8 H MCHC (test code = 786-4) 33.6 g/dL 31.6-35.1 RDW-SD (test code = 20759-3) 54.3 fL 39.0-49.9 H RDW-CV (test code = 788-0) 13.4 % 12.0-15.5 PLT (test code = 777-3) 133 166-358 L MPV (test code = 64683-1) 11.5 fL 9.5-12.9 IPF % (test code = 9907614156) 5.6 % 1.3-7.7 Platelet count measured by fluorescence method. NRBC/100 WBC (test code = 9599004879) 0.0 0.0-10.0 NRBC x10^3 (test code = 0997190515) See_Comment [Automated messa ge] The system which generated this result transmitted reference range: 10*3/?L. The reference range was not used to interpret this result as normal/abnormal. GRAN MAT (NEUT) % (test code = 770-8) 91.9 % IMM GRAN % (test code = 1101279954) 0.30 % LYMPH % (test code = 736-9) 5.6 % MONO % (test code = 5905-5) 2.1 % EOS % (test code = 713-8) 0.0 % BASO % (test code = 706-2) 0.1 % GRAN MAT x10^3(ANC) (test code = 0992766559) 7.05 10*3/uL 1.88-7.09 IMM GRAN x10^3 (test code = 2599909616) 0.00-0.06 LYMPH x10^3 (test code = 731-0) 0.43 10*3/uL 1.32-3.29 L MONO x10^3 (test code = 742-7) 0.16 10*3/uL 0.33-0.92 L EOS x10^3 (test code = 711-2) 0.03-0.39 L BASO x10^3 (test code = 704-7) 0.01-0.07 Lab Interpretation (test code = 34369-1) [id number]:32:09* Test Item Value Reference Range Interpretation Comme nts NA (test code = 3264858465) 139 mmol/L 135-145 K (test code = 6740521599) 3.9 mmol/L 3.5-5.0 CL (test code = 4240217106) 115 mmol/L 98-108 H CO2 TOTAL (test code = 7381324717) 16 mmol/L 23-31 L AGAP (test code = 2107205492) 8 2-16 BUN (test code = 7451766639) 30 mg/dL 7-23 H GLUCOSE (test code = 7844205810) 173 mg/dL 70-110 H CREATININE (test code = 2160-0) 1.69 mg/dL 0.50-1.04 H TOTAL BILI (test code = 5054239927) 0.4 mg/dL 0.1-1.1 CALCIUM (test code = 5120910884) 10.1 mg/dL 8.6-10.6 T PROTEIN (test code = 3985384563) 8.5 g/dL 6.3-8.2 H ALBUMIN (test code = 5936993636) 3.9 g/dL 3.5-5.0 ALK PHOS (test code = 7533848666) 76 U/L 34-122 ALTv (test code = 1742-6) 35 U/L 5-35 AST(SGOT) (test code = 8902545015) 54 U/L 13-40 H eGFR (test code = 93378-2) 34.4 mL/min/1.73m2 CKD-EPI eGFR (2020). Assuming creatinine has been stable day-to-day for at least three months, the eGFR indicates Category G3b (30 - 44 mL/min/1.73 m2) Lab Interpretation (test code = 25073-2) [facility]:06* Test Item Value Reference Range Interpretation Comme nts Height (test code = 9003029659) 63 in Weight (test code = 8467191811) 140 lbs Systolic BP (test code = 6024403424) 118 mmHg Diastolic BP (test code = 7362450474) 58 mmHg Heart Rate (test code = 9159846220) 78 bpm BSA (test code = 3617435966) 1.66 m2 Ao root diam (test code = 3713725751) 2.90 cm Aortic root (test code = 8856547340) 2.9 cm Ao root annulus (test code = 5388716027) 2.9 cm LVOT diameter (test code = 8135362538) 1.96 cm LVOT area (test code = 3866276208) 3.00 cm2 LA size (test code = 7122225491) 3.2 cm LVIDD (test code = 3176284262) 2.90 cm Left Ventricular End Diastolic Volume by Teichholz Method (test code = 8766640) 32.6 mL IVS (test code = 2308447601) 1.26 cm Interventricular Septum Diastolic Thickness by 2D (test code = 9366919) 1.26 cm LVPWD (test code = 1669010674) 1.23 cm PW (test code = 3043009967) 1.23 cm 0.6-1.1 EF(Teich) (test code = 2072848175) 55.00 % LVIDS (test code = 6641175466) 2.11 cm Left Ventricular End Systolic Volume by Teichholz Method (test code = 6438093) 14.7 mL FS (test code = 9774270070) 27 % EF - 2D (test code = 30347564) 55.00 % LAV(MOD-sp4) (test code = 3506344896) 20.20 mL E wave decelartion time (test code = 9242583134) 0.18 s MV Peak E Barber (test code = 3077981616) 72.8 cm/s MV stenosis pressure 1/2 time (test code = 5480000719) 51.2 ms MV Peak A Barber (test code = 3000453331) 73.4 cm/s E/A ratio (test code = 6972318337) 0.99 ratio MV Prop V (test code = 0041910970) 180.80 cm/s MV E/e' septal (test code = 5363458455) 10.8 cm/s Tapse (test code = 6208996950) 2.08 cm LVOT stroke volume (test code = 1904343872) 73.30 cm3 LVOT peak barber (test code = 5718313712) 125.3 cm/s LVOT mn grad (test code = 3986246889) 3.6 mmHg AV LVOT peak gradient (test code = 3265224247) 6.3 mmHg LVOT peak VTI (test code = 5686176089) 24.3 cm LV V1 mean (test code = 7639914591) 89.60 cm/s Aortic valve mean velocity (test code = 4335522252) 236.9 cm/s Ao peak barber (test code = 0479905080) 333.6 cm/s Ao VTI (test code = 3302391218) 58.2 cm AV area by cont VTI (test code = 7779500172) 1.3 cm2 AV area peak barber (test code = 8525571958) 1.1 cm2 Ao max PG (test code = 9417791093) 44.60 mm[Hg] AV peak gradient (test code = 9826015849) 44.6 mmHg AV valve area (test code = 7021484128) 1.26 cm2 AV mean gradient (test code = 6894059234) 24.9 mmHg Radiology Study observation (narrative) (test code = 98947-8) GARRY (test code = GARRY) Table formatting [...] 2D, color flow Doppler and spectral Doppler. [facility] WITH [id number] 19:09:02* Test Item Value Reference Range Interpretation [...] 33.5 g/dL 31.6-35.1 RDW-SD (test code = 84916-9) 55.2 fL 39.0-49.9 H RDW-CV (test code = 788-0) 13.4 % 12.0-15.5 PLT (test code = 777-3) 142 166-358 L MPV (test code = 17166-1) 11.4 fL 9.5-12.9 NRBC/100 WBC (test code = 5130912943) 0.0 0.0-10.0 NRBC x10^3 (test code = 1844358361) See_Comment [Automated [employer]] The system which generated this result transmitted reference range: 10*3/?L. The reference range was not used to interpret this result as normal/abnormal. GRAN MAT (NEUT) % (test code = 770-8) 62.9 % IMM GRAN % (test code = 4999658397) 0.40 % LYMPH % (test code = 736-9) 27.3 % MONO % (test code = 5905-5) 9.0 % EOS % (test code = 713-8) 0.2 % BASO % (test code = 706-2) 0.2 % GRAN MAT x10^3(ANC) (test code = 0941108266) 3.30 10*3/uL 1.88-7.09 IMM GRAN x10^3 (test code = 8105110995) 0.00-0.06 LYMPH x10^3 (test code = 731-0) 1.43 10*3/uL 1.32-3.29 MONO x10^3 (test code = 742-7) 0.47 10*3/uL 0.33-0.92 EOS x10^3 (test code = 711-2) 0.03-0.39 L BASO x10^3 (test code = 704-7) 0.01-0.07 Lab Interpretation (test code = 18518-9) Abnormal [facility] [id number] 18:52:52* Test Item Value Reference Range Interpretation Comme nts TROPONIN I (test code = 2204845051) 0.160 ng/mL <=0.034 H GARRY (test code [...] of biotin. Lab Interpretation (test code = 34990-1) Abnormal [facility]. METABOLIC PANEL ([id number])2023-05-16 18:41:47* Test Item Value Reference Range Interpretation Comme nts NA (test code = 5305671862) 143 mmol/L 135-145 K (test code = 9399058058) 3.9 mmol/L 3.5-5.0 CL (test code = 4324881155) 116 mmol/L 98-108 H CO2 TOTAL (test code = 9830965965) 15 mmol/L 23-31 L AGAP (test code = 9243007821) 12 2-16 BUN (test code = 8600988716) 29 mg/dL 7-23 H GLUCOSE (test code = 9215393878) 104 mg/dL 70-110 CREATININE (test code = 2160-0) 1.90 mg/dL 0.50-1.04 H TOTAL BILI (test code = 1013057011) 0.5 mg/dL 0.1-1.1 CALCIUM (test code = 9496629328) 10.2 mg/dL 8.6-10.6 T PROTEIN (test code = 9612857001) 9.8 g/dL 6.3-8.2 H ALBUMIN (test code = 0583667463) 4.6 g/dL 3.5-5.0 ALK PHOS (test code = 8537727353) 103 U/L 34-122 ALTv (test code = 1742-6) 44 U/L 5-35 H AST(SGOT) (test code = 8637180381) 54 U/L 13-40 H eGFR (test code = 73743-4) 29.9 mL/min/1.73m2 Lab Interpretation (test cod e = 60500-3) [facility] [id number] 18:41:26* Test Item Value Reference Range Interpretation Comme nts LIPASE (test code = 3983824215) 123 U/L 0-220 Lab Interpretation (test cod e = 90923-2) [facility] [id number] 18:29:21 * Test Item Value Reference Range Interpretation Comme nts PH (test code = 3178654474) 7.25 7.32-7.42 L PCO2 BEBA (test code = 7195742245) 40 41-51 L PO2 BEBA (test code = 6362245997) 27 25-40 HCO3 BEBA (test code = 3084089247) 17 24-28 L AC VBE(BEAKER) (test code = 7510049404) -9.3 mEq/L Lab Interpretation (test cod e = 73920-7) [facility]normal [facility] 1 [id number] 18:03:51HISTORY: Cough and SOB. TECHNIQUE: Portable AP [...] Acute findings could be secondary to viral infection.[facility] Center[facility]ULTNIALL, [id number] 08:50:21SPECIMEN NUMBER: [id number] CULTURE, URINE SPECIMEN NUMBER: [id number] SPECIMEN COMMENT: URINE SOURCE: URINE REPORT STATUS: FINAL FINAL REPORT: 05/11/2023 10-50,000 CFU/ML UROGENITAL KARLA PRESENT NO COMMON PATHOGENSCULTURE, [id number] 00:00:00* Test Item Value Reference Range Interpretation Comme nts CULTURE, URINE (test code = 36289) SPECIMEN NUMBER: [id number] Delfino SarmientoLTNIALL, [id number] 00:00:00* Test Item Value Reference Range Interpretation Comme nts CULTURE, URINE (test code = 70237) SPECIMEN NUMBER: [id number] Delfino OrtaCULTNIALL, [id number] 00:00:00* Test Item Value Reference Range Interpretation Comme nts CULTURE, URINE (test code = 10572) SPECIMEN NUMBER: [id number] Delfino OrtaCULTNIALL, [id number] 00:00:00* Test Item Value Reference Range Interpretation Comme nts CULTURE, URINE (test code = 55067) SPECIMEN NUMBER: [id number] Delfino OrtaCULTNIALL, [id number] 00:00:00* Test Item Value Reference Range Interpretation Comme nts CULTURE, URINE (test code = 19566) SPECIMEN NUMBER: [id number] Delfino OtraCULTURE, [id number] 00:00:00* Test Item Value Reference Range Interpretation Comme nts CULTURE, URINE (test code = 09354) SPECIMEN NUMBER: [id number] Delfino Cedeño, [id number] 00:00:00* Test Item Value Reference Range Interpretation Comme nts CULTURE, URINE (test code = 71710) SPECIMEN NUMBER: [id number] Delfino Cedeño [id number] 00:00:00* Test Item Value Reference Range Interpretation Comme nts CULTURE, URINE (test code = 48882) SPECIMEN NUMBER: [id number] Delfino Cedeño, [id number] 00:00:00* Test Item Value Reference Range Interpretation Comme nts CULTURE, URINE (test code = 01455) SPECIMEN NUMBER: [id number] Delfino Cedeño, [id number] 00:00:00* Test Item Value Reference Range Interpretation Comme nts CULTURE, URINE (test code = 22736) SPECIMEN NUMBER: [id number] Delfino Cedeño, [id number] 00:00:00* Test Item Value Reference Range Interpretation Comme nts CULTURE, URINE (test code = 28430) SPECIMEN NUMBER: [id number] Delfino Cedeño, [id number] 00:00:00* Test Item Value Reference Range Interpretation Comme nts CULTURE, URINE (test code = 79237) SPECIMEN NUMBER: [id number] Delfino Cedeño, [id number] 00:00:00* Test Item Value Reference Range Interpretation Comme nts CULTURE, URINE (test code = 26541) SPECIMEN NUMBER: [id number] Delfino SarmientoLTNIALL, [id number] 00:00:00* Test Item Value Reference Range Interpretation Comme nts CULTURE, URINE (test code = 37344) SPECIMEN NUMBER: [id number] Delfino SarmientoLTNIALL, [id number] 00:00:00* Test Item Value Reference Range Interpretation Comme nts CULTURE, URINE (test code = 95776) SPECIMEN NUMBER: [id number] Delfino SarmientoLTNIALL, [id number] 00:00:00* Test Item Value Reference Range Interpretation Comme nts CULTURE, URINE (test code = 00858) SPECIMEN NUMBER: [id number] Delfino Cedeño, [id number] 00:00:00* Test Item Value Reference Range Interpretation Comme nts CULTURE, URINE (test code = 98541) SPECIMEN NUMBER: [id number] Delfino Cedeño, [id number] 00:00:00* Test Item Value Reference Range Interpretation Comme nts CULTURE, URINE (test code = 17836) SPECIMEN NUMBER: [id number] Delfino Cedeño, [id number] 00:00:00* Test Item Value Reference Range Interpretation Comme nts CULTURE, URINE (test code = 37937) SPECIMEN NUMBER: [id number] Delfino Cedeño, [id number] 00:00:00* Test Item Value Reference Range Interpretation Comme nts CULTURE, URINE (test code = 38693) SPECIMEN NUMBER: [id number] Delfino Cedeño, [id number] 00:00:00* Test Item Value Reference Range Interpretation Comme nts CULTURE, URINE (test code = 02795) SPECIMEN NUMBER: [id number] Delfino SarmientoLTNIALL, [id number] 00:00:00* Test Item Value Reference Range Interpretation Comme nts CULTURE, URINE (test code = 58200) SPECIMEN NUMBER: [id number] Delfino Cedeño, [id number] 00:00:00* Test Item Value Reference Range Interpretation Comme nts CULTURE, URINE (test code = 89233) SPECIMEN NUMBER: [id number] Delfino SarmientoLTNIALL, [id number] 00:00:00* Test Item Value Reference Range Interpretation Comme nts CULTURE, URINE (test code = 02656) SPECIMEN NUMBER: [id number] Delfino SarmientoLTNIALL, [id number] 00:00:00* Test Item Value Reference Range Interpretation Comme nts CULTURE, URINE (test code = 91787) SPECIMEN NUMBER: [id number] Delfino SarmientoLTNIALL, [id number] 00:00:00* Test Item Value Reference Range Interpretation Comme nts CULTURE, URINE (test code = 54919) SPECIMEN NUMBER: [id number] Delfino Cedeño, [id number] 00:00:00* Test Item Value Reference Range Interpretation Comme nts CULTURE, URINE (test code = 38048) SPECIMEN NUMBER: [id number] Delfino Cedeño [id number] 00:00:00* Test Item Value Reference Range Interpretation Comme nts CULTURE, URINE (test code = 43038) SPECIMEN NUMBER: [id number] Delfino Cedeño [id number] 00:00:00* Test Item Value Reference Range Interpretation Comme nts CULTURE, URINE (test code = 78301) SPECIMEN NUMBER: [id number] Delfino Cedeño [id number] 00:00:00* Test Item Value Reference Range Interpretation Comme nts CULTURE, URINE (test code = 53678) SPECIMEN NUMBER: [id number] Delfino Cedeño, [id number] 00:00:00* Test Item Value Reference Range Interpretation Comme nts CULTURE, URINE (test code = 79850) SPECIMEN NUMBER: [id number] Delfino Cedeño, [id number] 00:00:00* Test Item Value Reference Range Interpretation Comme nts CULTURE, URINE (test code = 01782) SPECIMEN NUMBER: [id number] Delfino Cedeño, [id number] 00:00:00* Test Item Value Reference Range Interpretation Comme nts CULTURE, URINE (test code = 21171) SPECIMEN NUMBER: [id number] Delfino Cedeño, [id number] 00:00:00* Test Item Value Reference Range Interpretation Comme nts CULTURE, URINE (test code = 19608) SPECIMEN NUMBER: [id number] Delfino OrtaVAGINAL PATHOGENS DNA [id number] 14:05:30* Test Item Value Reference Range Interpretation Comme nts DIANNA SPECIES (test code = 05778) NEGATIVE NEGATIVE G. VAGINALIS (test code = 84268) NEGATIVE NEGATIVE T. VAGINALIS (test code = 35452) NEGATIVE NEGATIVE Note: The [facility] VPIII Microbial Identification Testis a DNA probe test intended for use in the detectionand identification of Dianna species, Gardnerellavaginalis and Trichomonas vaginalis nucleic acid. CT/NG, NAAT, [id number] 12:17:23* Test Item Value Reference Range Interpretation Comme nts CHLAMYDIA, NAAT, URINE (test code = 60969) NEGATIVE NEGATIVE Testing is perfo rmed with Epifanio JOSE 6800/8800 systems usingreal-time polymerase chain reaction (PCR) method. A negative result does not exclude low level infection, specimensampling error, or collection error. GONORRHEA, NAAT, URINE (test code = 36144) NEGATIVE NEGATIVE Testing is perfo rmed with Epifanio JOSE 6800/8800 systems usingreal-time polymerase chain reaction (PCR) method. A negative result does not exclude low level infection, specimensampling error, or collection error. UNLESS OTHERWISE INDICATED, ALL TESTING PERFORMED AT [facility] 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 CLIA NUMBER [id number] [facility] [place]. [id number] VAGINAL PATHOGENS DNA [id number] 00:00:00* Test Item Value Reference Range Interpretation Comme nts DIANNA SPECIES (test code = ) NEGATIVE G. VAGINALIS (test code = 04601) NEGATIVE T. VAGINALIS (test code = 14024) NEGATIVE Delfino F AustinCT/NG, TMA, [id number] 00:00:00* Test Item Value Reference Range Interpretation Comme nts CHLAMYDIA, NAAT, URINE (test code = 82492) NEGATIVE GONORRHEA, NAAT, URINE (test code = 79099) NEGATIVE Delfino F AustinVAGINAL PATHOGENS DNA [id number] 00:00:00* Test Item Value Reference Range Interpretation Comme nts DIANNA SPECIES (test code = ) NEGATIVE G. VAGINALIS (test code = 54808) NEGATIVE T. VAGINALIS (test code = 37158) NEGATIVE Delfino F AustinCT/NG, TMA, [id number] 00:00:00* Test Item Value Reference Range Interpretation Comme nts CHLAMYDIA, NAAT, URINE (test code = 30160) NEGATIVE GONORRHEA, NAAT, URINE (test code = 41154) NEGATIVE Delfino F AustinVAGINAL PATHOGENS DNA [id number] 00:00:00* Test Item Value Reference Range Interpretation Comme nts DIANNA SPECIES (test code = 21734) NEGATIVE G. VAGINALIS (test code = 32128) NEGATIVE T. VAGINALIS (test code = 67850) NEGATIVE Delfino F AustinCT/NG, TMA, [id number] 00:00:00* Test Item Value Reference Range Interpretation Comme nts CHLAMYDIA, NAAT, URINE (test code = 83048) NEGATIVE GONORRHEA, NAAT, URINE (test code = 06745) NEGATIVE Delfino F AustinVAGINAL PATHOGENS DNA [id number] 00:00:00* Test Item Value Reference Range Interpretation Comme nts DIANNA SPECIES (test code = 30226) NEGATIVE G. VAGINALIS (test code = 41846) NEGATIVE T. VAGINALIS (test code = 26404) NEGATIVE Delfino F AustinVAGINAL PATHOGENS DNA [id number] 00:00:00* Test Item Value Reference Range Interpretation Comme nts DIANNA SPECIES (test code = 69545) NEGATIVE G. VAGINALIS (test code = 01401) NEGATIVE T. VAGINALIS (test code = 98969) NEGATIVE Delfino F AustinCT/NG, TMA, [id number] 00:00:00* Test Item Value Reference Range Interpretation Comme nts CHLAMYDIA, NAAT, URINE (test code = 34382) NEGATIVE GONORRHEA, NAAT, URINE (test code = 70516) NEGATIVE Delfino F AustinVAGINAL PATHOGENS DNA [id number] 00:00:00* Test Item Value Reference Range Interpretation Comme nts DIANNA SPECIES (test code = ) NEGATIVE G. VAGINALIS (test code = 38054) NEGATIVE T. VAGINALIS (test code = 03287) NEGATIVE Delfino F AustinCT/NG, TMA, [id number] 00:00:00* Test Item Value Reference Range Interpretation Comme nts CHLAMYDIA, NAAT, URINE (test code = 84443) NEGATIVE GONORRHEA, NAAT, URINE (test code = 29096) NEGATIVE Delfino F AustinCT/NG, TMA, [id number] 00:00:00* Test Item Value Reference Range Interpretation Comme nts CHLAMYDIA, NAAT, URINE (test code = 87607) NEGATIVE GONORRHEA, NAAT, URINE (test code = 16954) NEGATIVE Delfino F AustinVAGINAL PATHOGENS DNA [id number] 00:00:00* Test Item Value Reference Range Interpretation Comme nts DIANNA SPECIES (test code = ) NEGATIVE G. VAGINALIS (test code = 81098) NEGATIVE T. VAGINALIS (test code = 75586) NEGATIVE Delfino Schumacher AustinCT/NG, TMA, [id number] 00:00:00* Test Item Value Reference Range Interpretation Comme nts CHLAMYDIA, NAAT, URINE (test code = 99248) NEGATIVE GONORRHEA, NAAT, URINE (test code = 13992) NEGATIVE Delfino Schumacher AustinVAGINAL PATHOGENS DNA [id number] 00:00:00* Test Item Value Reference Range Interpretation Comme nts DIANNA SPECIES (test code = ) NEGATIVE G. VAGINALIS (test code = 55509) NEGATIVE T. VAGINALIS (test code = 48594) NEGATIVE Delfino Schumacher AustinCT/NG, TMA, [id number] 00:00:00* Test Item Value Reference Range Interpretation Comme nts CHLAMYDIA, NAAT, URINE (test code = 97223) NEGATIVE GONORRHEA, NAAT, URINE (test code = 16316) NEGATIVE Delfino Schumacher AustinVAGINAL PATHOGENS DNA [id number] 00:00:00* Test Item Value Reference Range Interpretation Comme nts DIANNA SPECIES (test code = ) NEGATIVE G. VAGINALIS (test code = 12521) NEGATIVE T. VAGINALIS (test code = 08668) NEGATIVE Delfino Schumacher AustinCT/NG, TMA, [id number] 00:00:00* Test Item Value Reference Range Interpretation Comme nts CHLAMYDIA, NAAT, URINE (test code = 88115) NEGATIVE GONORRHEA, NAAT, URINE (test code = 96614) NEGATIVE Delfino Schumacher AustinVAGINAL PATHOGENS DNA [id number] 00:00:00* Test Item Value Reference Range Interpretation Comme nts DIANNA SPECIES (test code = ) NEGATIVE G. VAGINALIS (test code = 45382) NEGATIVE T. VAGINALIS (test code = 91032) NEGATIVE Delfino Schumacher AustinCT/NG, TMA, [id number] 00:00:00* Test Item Value Reference Range Interpretation Comme nts CHLAMYDIA, NAAT, URINE (test code = 32362) NEGATIVE GONORRHEA, NAAT, URINE (test code = 89226) NEGATIVE Delfino Schumacher AustinVAGINAL PATHOGENS DNA [id number] 00:00:00* Test Item Value Reference Range Interpretation Comme nts DIANNA SPECIES (test code = ) NEGATIVE G. VAGINALIS (test code = 34767) NEGATIVE T. VAGINALIS (test code = 33598) NEGATIVE Delfino Endy AustinCT/NG, TMA, [id number] 00:00:00* Test Item Value Reference Range Interpretation Comme nts CHLAMYDIA, NAAT, URINE (test code = 06380) NEGATIVE GONORRHEA, NAAT, URINE (test code = 08878) NEGATIVE Delfino Endy AustinVAGINAL PATHOGENS DNA [id number] 00:00:00* Test Item Value Reference Range Interpretation Comme nts DIANNA SPECIES (test code = ) NEGATIVE G. VAGINALIS (test code = 35759) NEGATIVE T. VAGINALIS (test code = 18822) NEGATIVE Delfino F AustinCT/NG, TMA, [id number] 00:00:00* Test Item Value Reference Range Interpretation Comme nts CHLAMYDIA, NAAT, URINE (test code = 08576) NEGATIVE GONORRHEA, NAAT, URINE (test code = 05583) NEGATIVE Delfino F AustinVAGINAL PATHOGENS DNA [id number] 00:00:00* Test Item Value Reference Range Interpretation Comme nts DIANNA SPECIES (test code = ) NEGATIVE G. VAGINALIS (test code = 52364) NEGATIVE T. VAGINALIS (test code = ) NEGATIVE Delfino Endy AustinCT/NG, TMA, [id number] 00:00:00* Test Item Value Reference Range Interpretation Comme nts CHLAMYDIA, NAAT, URINE (test code = 94768) NEGATIVE GONORRHEA, NAAT, URINE (test code = 49662) NEGATIVE Delfino Endy AustinVAGINAL PATHOGENS DNA [id number] 00:00:00* Test Item Value Reference Range Interpretation Comme nts DIANNA SPECIES (test code = ) NEGATIVE G. VAGINALIS (test code = 27734) NEGATIVE T. VAGINALIS (test code = 67040) NEGATIVE Delfino F AustinCT/NG, TMA, [id number] 00:00:00* Test Item Value Reference Range Interpretation Comme nts CHLAMYDIA, NAAT, URINE (test code = 94087) NEGATIVE GONORRHEA, NAAT, URINE (test code = 00938) NEGATIVE Delfino F AustinVAGINAL PATHOGENS DNA [id number] 00:00:00* Test Item Value Reference Range Interpretation Comme nts DIANNA SPECIES (test code = ) NEGATIVE G. VAGINALIS (test code = 30930) NEGATIVE T. VAGINALIS (test code = ) NEGATIVE Delfino Schumacher AustinCT/NG, TMA, [id number] 00:00:00* Test Item Value Reference Range Interpretation Comme nts CHLAMYDIA, NAAT, URINE (test code = 99938) NEGATIVE GONORRHEA, NAAT, URINE (test code = 09545) NEGATIVE Delfino Schumacher AustinVAGINAL PATHOGENS DNA [id number] 00:00:00* Test Item Value Reference Range Interpretation Comme nts DIANNA SPECIES (test code = ) NEGATIVE G. VAGINALIS (test code = 18160) NEGATIVE T. VAGINALIS (test code = 78453) NEGATIVE Delfino Schumacher AustinCT/NG, TMA, [id number] 00:00:00* Test Item Value Reference Range Interpretation Comme nts CHLAMYDIA, NAAT, URINE (test code = 92739) NEGATIVE GONORRHEA, NAAT, URINE (test code = 34526) NEGATIVE Delfino Schumacher AustinVAGINAL PATHOGENS DNA [id number] 00:00:00* Test Item Value Reference Range Interpretation Comme nts DIANNA SPECIES (test code = ) NEGATIVE G. VAGINALIS (test code = 37190) NEGATIVE T. VAGINALIS (test code = ) NEGATIVE Delfino Schumacher AustinCT/NG, TMA, [id number] 00:00:00* Test Item Value Reference Range Interpretation Comme nts CHLAMYDIA, NAAT, URINE (test code = 60623) NEGATIVE GONORRHEA, NAAT, URINE (test code = 41114) NEGATIVE Delfino Schumacher AustinVAGINAL PATHOGENS DNA [id number] 00:00:00* Test Item Value Reference Range Interpretation Comme nts DIANNA SPECIES (test code = ) NEGATIVE G. VAGINALIS (test code = 79934) NEGATIVE T. VAGINALIS (test code = 58776) NEGATIVE Delfino F AustinCT/NG, TMA, [id number] 00:00:00* Test Item Value Reference Range Interpretation Comme nts CHLAMYDIA, NAAT, URINE (test code = 80691) NEGATIVE GONORRHEA, NAAT, URINE (test code = 37439) NEGATIVE Delfino F AustinVAGINAL PATHOGENS DNA [id number] 00:00:00* Test Item Value Reference Range Interpretation Comme nts DIANNA SPECIES (test code = ) NEGATIVE G. VAGINALIS (test code = 98502) NEGATIVE T. VAGINALIS (test code = 64852) NEGATIVE Delfino Schumacher AustinCT/NG, TMA, [id number] 00:00:00* Test Item Value Reference Range Interpretation Comme nts CHLAMYDIA, NAAT, URINE (test code = 17040) NEGATIVE GONORRHEA, NAAT, URINE (test code = 97486) NEGATIVE Delfino Schumacher AustinVAGINAL PATHOGENS DNA [id number] 00:00:00* Test Item Value Reference Range Interpretation Comme nts DIANNA SPECIES (test code = ) NEGATIVE G. VAGINALIS (test code = 43007) NEGATIVE T. VAGINALIS (test code = 58790) NEGATIVE Delfino Schumacher AustinCT/NG, TMA, [id number] 00:00:00* Test Item Value Reference Range Interpretation Comme nts CHLAMYDIA, NAAT, URINE (test code = 14862) NEGATIVE GONORRHEA, NAAT, URINE (test code = 07030) NEGATIVE Delfino Schumacher AustinVAGINAL PATHOGENS DNA [id number] 00:00:00* Test Item Value Reference Range Interpretation Comme nts DIANNA SPECIES (test code = ) NEGATIVE G. VAGINALIS (test code = 23577) NEGATIVE T. VAGINALIS (test code = 40652) NEGATIVE Delfino Schumacher AustinCT/NG, TMA, [id number] 00:00:00* Test Item Value Reference Range Interpretation Comme nts CHLAMYDIA, NAAT, URINE (test code = 86970) NEGATIVE GONORRHEA, NAAT, URINE (test code = 59603) NEGATIVE Delfino Schumacher AustinVAGINAL PATHOGENS DNA [id number] 00:00:00* Test Item Value Reference Range Interpretation Comme nts DIANNA SPECIES (test code = ) NEGATIVE G. VAGINALIS (test code = 52422) NEGATIVE T. VAGINALIS (test code = 56808) NEGATIVE Delfino F AustinCT/NG, TMA, [id number] 00:00:00* Test Item Value Reference Range Interpretation Comme nts CHLAMYDIA, NAAT, URINE (test code = 59464) NEGATIVE GONORRHEA, NAAT, URINE (test code = 47612) NEGATIVE Delfino F AustinVAGINAL PATHOGENS DNA [id number] 00:00:00* Test Item Value Reference Range Interpretation Comme nts DIANNA SPECIES (test code = ) NEGATIVE G. VAGINALIS (test code = 04672) NEGATIVE T. VAGINALIS (test code = 18432) NEGATIVE Delfino F AustinCT/NG, TMA, [id number] 00:00:00* Test Item Value Reference Range Interpretation Comme nts CHLAMYDIA, NAAT, URINE (test code = 22136) NEGATIVE GONORRHEA, NAAT, URINE (test code = 80299) NEGATIVE Delfino F AustinVAGINAL PATHOGENS DNA [id number] 00:00:00* Test Item Value Reference Range Interpretation Comme nts DIANNA SPECIES (test code = ) NEGATIVE G. VAGINALIS (test code = 66440) NEGATIVE T. VAGINALIS (test code = 23593) NEGATIVE Delfino F AustinCT/NG, TMA, [id number] 00:00:00* Test Item Value Reference Range Interpretation Comme nts CHLAMYDIA, NAAT, URINE (test code = 04279) NEGATIVE GONORRHEA, NAAT, URINE (test code = 23363) NEGATIVE Delfino F AustinVAGINAL PATHOGENS DNA [id number] 00:00:00* Test Item Value Reference Range Interpretation Comme nts DIANNA SPECIES (test code = ) NEGATIVE G. VAGINALIS (test code = 31503) NEGATIVE T. VAGINALIS (test code = 12241) NEGATIVE Delfino Endy AustinCT/NG, TMA, [id number] 00:00:00* Test Item Value Reference Range Interpretation Comme nts CHLAMYDIA, NAAT, URINE (test code = 98736) NEGATIVE GONORRHEA, NAAT, URINE (test code = 09797) NEGATIVE Delfino F AustinVAGINAL PATHOGENS DNA [id number] 00:00:00* Test Item Value Reference Range Interpretation Comme nts DIANNA SPECIES (test code = 46326) NEGATIVE G. VAGINALIS (test code = 19768) NEGATIVE T. VAGINALIS (test code = 37221) NEGATIVE Delfino F AustinCT/NG, TMA, [id number] 00:00:00* Test Item Value Reference Range Interpretation Comme nts CHLAMYDIA, NAAT, URINE (test code = 63962) NEGATIVE GONORRHEA, NAAT, URINE (test code = 47044) NEGATIVE Delfino F AustinVAGINAL PATHOGENS DNA [id number] 00:00:00* Test Item Value Reference Range Interpretation Comme nts DIANNA SPECIES (test code = 35327) NEGATIVE G. VAGINALIS (test code = 99923) NEGATIVE T. VAGINALIS (test code = 92104) NEGATIVE Delfino F AustinCT/NG, TMA, [id number] 00:00:00* Test Item Value Reference Range Interpretation Comme nts CHLAMYDIA, NAAT, URINE (test code = 03385) NEGATIVE GONORRHEA, NAAT, URINE (test code = 36873) NEGATIVE Delfino F AustinVAGINAL PATHOGENS DNA [id number] 00:00:00* Test Item Value Reference Range Interpretation Comme nts DIANNA SPECIES (test code = ) NEGATIVE G. VAGINALIS (test code = 00085) NEGATIVE T. VAGINALIS (test code = 33163) NEGATIVE Delfino F AustinCT/NG, TMA, [id number] 00:00:00* Test Item Value Reference Range Interpretation Comme nts CHLAMYDIA, NAAT, URINE (test code = 43991) NEGATIVE GONORRHEA, NAAT, URINE (test code = 42771) NEGATIVE Delfino F AustinVAGINAL PATHOGENS DNA [id number] 00:00:00* Test Item Value Reference Range Interpretation Comme nts DIANNA SPECIES (test code = ) NEGATIVE G. VAGINALIS (test code = 47103) NEGATIVE T. VAGINALIS (test code = 78119) NEGATIVE Delfino Schumacher [place]CT/NG, TMA, [id number] 00:00:00* Test Item Value Reference Range Interpretation Comme nts CHLAMYDIA, NAAT, URINE (test code = 97472) NEGATIVE GONORRHEA, NAAT, URINE (test code = 09077) NEGATIVE Delfino F [facility] [id number] 00:00:00* Test Item Value Reference Range Interpretation Comme nts DIANNA SPECIES (test code = 16797) NEGATIVE G. VAGINALIS (test code = 49336) NEGATIVE T. VAGINALIS (test code = 32886) NEGATIVE Delfino F AustinCT/NG, TMA, [id number] 00:00:00* Test Item Value Reference Range Interpretation Comme nts CHLAMYDIA, NAAT, URINE (test code = 56269) NEGATIVE GONORRHEA, NAAT, URINE (test code = 73837) NEGATIVE [facility]elfino F [facility] [id number] 00:00:00* Test Item Value Reference Range Interpretation Comme nts DIANNA SPECIES (test code = ) NEGATIVE G. VAGINALIS (test code = 90737) NEGATIVE T. VAGINALIS (test code = 35676) NEGATIVE Delfino F AustinCT/NG, TMA, [id number] 00:00:00* Test Item Value Reference Range Interpretation Comme nts CHLAMYDIA, NAAT, URINE (test code = 31168) NEGATIVE GONORRHEA, NAAT, URINE (test code = 88122) NEGATIVE [facility]ino [facility] [id number] 00:00:00* Test Item Value Reference Range Interpretation Comme nts DIANNA SPECIES (test code = ) NEGATIVE G. VAGINALIS (test code = 62678) NEGATIVE T. VAGINALIS (test code = 77835) NEGATIVE Delfino F AustinCT/NG, TMA, [id number] 00:00:00* Test Item Value Reference Range Interpretation Comme nts CHLAMYDIA, NAAT, URINE (test code = 22780) NEGATIVE GONORRHEA, NAAT, URINE (test code = 80378) NEGATIVE [facility] [id number] 00:00:00* Test Item Value Reference Range Interpretation Comme nts DIANNA SPECIES (test code = ) NEGATIVE G. VAGINALIS (test code = 06710) NEGATIVE T. VAGINALIS (test code = 63778) NEGATIVE Deflino F AustinCT/NG, TMA, [id number] 00:00:00* Test Item Value Reference Range Interpretation Comme nts CHLAMYDIA, NAAT, URINE (test code = 01544) NEGATIVE GONORRHEA, NAAT, URINE (test code = 93263) NEGATIVE [facility] [id number] 00:00:00* Test Item Value Reference Range Interpretation Comme nts DIANNA SPECIES (test code = 42082) NEGATIVE G. VAGINALIS (test code = 80737) NEGATIVE T. VAGINALIS (test code = 79210) NEGATIVE Delfino F AustinCT/NG, TMA, [id number] 00:00:00* Test Item Value Reference Range Interpretation Comme nts CHLAMYDIA, NAAT, URINE (test code = 24279) NEGATIVE GONORRHEA, NAAT, URINE (test code = 90995) NEGATIVE Delfino Schumacher [id number] 20:25:19* Test Item Value Reference Range Interpretation Comme nts CALCIUM (test code = 2209) 10.6 MG/DL 8.5-10.5 H [id number] 20:25:10* Test Item Value Reference Range Interpretation Comme nts PHOSPHORUS (test code = 2227) 2.9 MG/DL 2.5-4.5 UNLESS OTHERWISE INDICATED, ALL TESTING PERFORMED AT [facility] 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 CLIA NUMBER [id number] [facility] [place]. [id number] CALCIUM, [id number] 09:33:19* Test Item Value Reference Range Interpretation Comme nts CALCIUM, IONIZED (test code = 35758) 5.50 MG/DL 4.70-5.90 INTACT [id number] 09:28:17* Test Item Value Reference Range Interpretation Comme nts INTACT PTH (test code = 5005) 60 PG/ML 15-65 [id number] 00:00:00* Test Item Value Reference Range Interpretation Comme nts CALCIUM (test code = 2209) 10.6 MG/DL Delfino Schumacher [id number] 00:00:00* Test Item Value Reference Range Interpretation Comme nts PHOSPHORUS (test code = 2227) 2.9 MG/DL Delfino Schumacher [facility] [id number] 00:00:00* Test Item Value Reference Range Interpretation Comme nts INTACT PTH (test code = 5005) 60 PG/ML Delfino Schumacher [facility], [id number] 00:00:00* Test Item Value Reference Range Interpretation Comme nts CALCIUM, IONIZED (test code = 94984) 5.50 MG/DL Delfino Schumacher [id number] 00:00:00* Test Item Value Reference Range Interpretation Comme nts CALCIUM (test code = 2209) 10.6 MG/DL Delfino Schumacher [id number] 00:00:00* Test Item Value Reference Range Interpretation Comme nts PHOSPHORUS (test code = 2227) 2.9 MG/DL Delfino Schumacher [facility] [id number] 00:00:00* Test Item Value Reference Range Interpretation Comme nts INTACT PTH (test code = 5005) 60 PG/ML Delfino Schumacher [facility], [id number] 00:00:00* Test Item Value Reference Range Interpretation Comme nts CALCIUM, IONIZED (test code = 26231) 5.50 MG/DL Delfino Schumacher [facility], [id number] 00:00:00* Test Item Value Reference Range Interpretation Comme nts CALCIUM, IONIZED (test code = 81127) 5.50 MG/DL Delfino Schumacher [id number] 00:00:00* Test Item Value Reference Range Interpretation Comme nts CALCIUM (test code = 2209) 10.6 MG/DL Delfino Schumacher [id number] 00:00:00* Test Item Value Reference Range Interpretation Comme nts PHOSPHORUS (test code = 2227) 2.9 MG/DL Delfino Schumacher [facility] [id number] 00:00:00* Test Item Value Reference Range Interpretation Comme nts INTACT PTH (test code = 5005) 60 PG/ML Delfino OrtaCALCIUM, [id number] 00:00:00* Test Item Value Reference Range Interpretation Comme nts CALCIUM, IONIZED (test code = 83788) 5.50 MG/DL Delfino Schumacher [id number] 00:00:00* Test Item Value Reference Range Interpretation Comme nts CALCIUM (test code = 2209) 10.6 MG/DL Delfino Schumacher [id number] 00:00:00* Test Item Value Reference Range Interpretation Comme nts PHOSPHORUS (test code = 2227) 2.9 MG/DL Delfino Schumacher [facility]IN[facility] [id number] 00:00:00* Test Item Value Reference Range Interpretation Comme nts INTACT PTH (test code = 5005) 60 PG/ML Delfino Schumacher [facility], [id number] 00:00:00* Test Item Value Reference Range Interpretation Comme nts CALCIUM, IONIZED (test code = 51997) 5.50 MG/DL Delfino Schumacher [id number] 00:00:00* Test Item Value Reference Range Interpretation Comme nts CALCIUM (test code = 2209) 10.6 MG/DL Delfino Schumacher [id number] 00:00:00* Test Item Value Reference Range Interpretation Comme nts CALCIUM (test code = 2209) 10.6 MG/DL Delfino Schumacher [id number] 00:00:00* Test Item Value Reference Range Interpretation Comme nts PHOSPHORUS (test code = 2227) 2.9 MG/DL Delfino Schumacher [facility] [id number] 00:00:00* Test Item Value Reference Range Interpretation Comme nts INTACT PTH (test code = 5005) 60 PG/ML Delfino Schumacher [facility], [id number] 00:00:00* Test Item Value Reference Range Interpretation Comme nts CALCIUM, IONIZED (test code = 20218) 5.50 MG/DL Delfino Schumacher [id number] 00:00:00* Test Item Value Reference Range Interpretation Comme nts CALCIUM (test code = 2209) 10.6 MG/DL Delfino Schumacher [id number] 00:00:00* Test Item Value Reference Range Interpretation Comme nts PHOSPHORUS (test code = 2227) 2.9 MG/DL Delfino Schumacher [id number] 00:00:00* Test Item Value Reference Range Interpretation Comme nts PHOSPHORUS (test code = 2227) 2.9 MG/DL Delfino Schumacher [facility]IN[facility] [id number] 00:00:00* Test Item Value Reference Range Interpretation Comme nts INTACT PTH (test code = 5005) 60 PG/ML Delfino OrtaCALCIUM, [id number] 00:00:00* Test Item Value Reference Range Interpretation Comme nts CALCIUM, IONIZED (test code = 08087) 5.50 MG/DL Delfino Schumacher [id number] 00:00:00* Test Item Value Reference Range Interpretation Comme nts CALCIUM (test code = 2209) 10.6 MG/DL Delfino Schumacher RfpgpkKGZDLIDZXR8960-08-87 00:00:00* Test Item Value Reference Range Interpretation Comme nts PHOSPHORUS (test code = 2227) 2.9 MG/DL Delfino Schumacher [facility] [id number] 00:00:00* Test Item Value Reference Range Interpretation Comme nts INTACT PTH (test code = 5005) 60 PG/ML Delfino Schumacher [facility], [id number] 00:00:00* Test Item Value Reference Range Interpretation Comme nts CALCIUM, IONIZED (test code = 60308) 5.50 MG/DL Delfino Schumacher [id number] 00:00:00* Test Item Value Reference Range Interpretation Comme nts CALCIUM (test code = 2209) 10.6 MG/DL Delfino Schumacher [id number] 00:00:00* Test Item Value Reference Range Interpretation Comme nts PHOSPHORUS (test code = 2227) 2.9 MG/DL Delfino Schumacher [facility] [id number] 00:00:00* Test Item Value Reference Range Interpretation Comme nts INTACT PTH (test code = 5005) 60 PG/ML Delfino Schumacher [facility], [id number] 00:00:00* Test Item Value Reference Range Interpretation Comme nts CALCIUM, IONIZED (test code = 41802) 5.50 MG/DL Delfino Schumacher [id number] 00:00:00* Test Item Value Reference Range Interpretation Comme nts CALCIUM (test code = 2209) 10.6 MG/DL Delfino Schumacher [id number] 00:00:00* Test Item Value Reference Range Interpretation Comme nts PHOSPHORUS (test code = 2227) 2.9 MG/DL Delfino Schumacher [facility]IN[facility] [id number] 00:00:00* Test Item Value Reference Range Interpretation Comme nts INTACT PTH (test code = 5005) 60 PG/ML Delfino OrtaCALCIUM, [id number] 00:00:00* Test Item Value Reference Range Interpretation Comme nts CALCIUM, IONIZED (test code = 88247) 5.50 MG/DL Delfino Schumacher [id number] 00:00:00* Test Item Value Reference Range Interpretation Comme nts CALCIUM (test code = 2209) 10.6 MG/DL Delfino Schumacher PgkcbcYNMDFAQKNQ6723-59-93 00:00:00* Test Item Value Reference Range Interpretation Comme nts PHOSPHORUS (test code = 2227) 2.9 MG/DL Delfino Schumacher [facility]IN[facility] [id number] 00:00:00* Test Item Value Reference Range Interpretation Comme nts INTACT PTH (test code = 5005) 60 PG/ML Delfino Schumacher [facility], [id number] 00:00:00* Test Item Value Reference Range Interpretation Comme nts CALCIUM, IONIZED (test code = 62158) 5.50 MG/DL Delfino Schumacher [id number] 00:00:00* Test Item Value Reference Range Interpretation Comme nts CALCIUM (test code = 2209) 10.6 MG/DL Delfino Schumacher QgfcabZCDRVJZHFZ3602-62-04 00:00:00* Test Item Value Reference Range Interpretation Comme nts PHOSPHORUS (test code = 2227) 2.9 MG/DL Delfino Schumacher [facility]IN[facility] [id number] 00:00:00* Test Item Value Reference Range Interpretation Comme nts INTACT PTH (test code = 5005) 60 PG/ML Delfino Schumacher [facility], [id number] 00:00:00* Test Item Value Reference Range Interpretation Comme nts CALCIUM, IONIZED (test code = 17750) 5.50 MG/DL Delfino Schumacher [id number] 00:00:00* Test Item Value Reference Range Interpretation Comme nts CALCIUM (test code = 2209) 10.6 MG/DL Delfino Schumacher IhevhmBHLPLPZCHY0592-29-14 00:00:00* Test Item Value Reference Range Interpretation Comme nts PHOSPHORUS (test code = 2227) 2.9 MG/DL Delfino Schumacher [facility]IN[facility] [id number] 00:00:00* Test Item Value Reference Range Interpretation Comme nts INTACT PTH (test code = 5005) 60 PG/ML Delfino Schumacher [facility], [id number] 00:00:00* Test Item Value Reference Range Interpretation Comme nts CALCIUM, IONIZED (test code = 30388) 5.50 MG/DL Delfino Schumacher [id number] 00:00:00* Test Item Value Reference Range Interpretation Comme nts CALCIUM (test code = 2209) 10.6 MG/DL Delfino Schumacher [id number] 00:00:00* Test Item Value Reference Range Interpretation Comme nts PHOSPHORUS (test code = 2227) 2.9 MG/DL Delfino Schumacher [facility] [id number] 00:00:00* Test Item Value Reference Range Interpretation Comme nts INTACT PTH (test code = 5005) 60 PG/ML Delfino Schumacher [facility], [id number] 00:00:00* Test Item Value Reference Range Interpretation Comme nts CALCIUM, IONIZED (test code = 96185) 5.50 MG/DL Delfino Schumacher PkuaauFHLYHQT0592-90-15 00:00:00* Test Item Value Reference Range Interpretation Comme nts CALCIUM (test code = 2209) 10.6 MG/DL Delfino Schumacher [id number] 00:00:00* Test Item Value Reference Range Interpretation Comme nts PHOSPHORUS (test code = 2227) 2.9 MG/DL Delfino Schumacher [facility] [id number] 00:00:00* Test Item Value Reference Range Interpretation Comme nts INTACT PTH (test code = 5005) 60 PG/ML Delfino Schumacher [facility], [id number] 00:00:00* Test Item Value Reference Range Interpretation Comme nts CALCIUM, IONIZED (test code = 57552) 5.50 MG/DL Delfino Schumacher OugpxbVTMBRFK0839-64-71 00:00:00* Test Item Value Reference Range Interpretation Comme nts CALCIUM (test code = 2209) 10.6 MG/DL Delfino Schumacher [id number] 00:00:00* Test Item Value Reference Range Interpretation Comme nts PHOSPHORUS (test code = 2227) 2.9 MG/DL Delfino Schumacher AustinINTACT [id number] 00:00:00* Test Item Value Reference Range Interpretation Comme nts INTACT PTH (test code = 5005) 60 PG/ML Delfino Schumacher [facility], [id number] 00:00:00* Test Item Value Reference Range Interpretation Comme nts CALCIUM, IONIZED (test code = 57384) 5.50 MG/DL Delfino Schumacher [id number] 00:00:00* Test Item Value Reference Range Interpretation Comme nts CALCIUM (test code = 2209) 10.6 MG/DL Delfino Schumacher [id number] 00:00:00* Test Item Value Reference Range Interpretation Comme nts PHOSPHORUS (test code = 2227) 2.9 MG/DL Delfino Schumacher [facility]IN[facility] [id number] 00:00:00* Test Item Value Reference Range Interpretation Comme nts INTACT PTH (test code = 5005) 60 PG/ML Delfino Schumacher AustinCAL[facility], [id number] 00:00:00* Test Item Value Reference Range Interpretation Comme nts CALCIUM, IONIZED (test code = 64072) 5.50 MG/DL Delfino Schumacher [id number] 00:00:00* Test Item Value Reference Range Interpretation Comme nts CALCIUM (test code = 2209) 10.6 MG/DL Delfino Schumacher QnbvcnKEETQUAMIN0110-13-97 00:00:00* Test Item Value Reference Range Interpretation Comme nts PHOSPHORUS (test code = 2227) 2.9 MG/DL Delfino Schumacher [facility]IN[facility] [id number] 00:00:00* Test Item Value Reference Range Interpretation Comme nts INTACT PTH (test code = 5005) 60 PG/ML Delfino Schumacher AustinCALCIUM, [id number] 00:00:00* Test Item Value Reference Range Interpretation Comme nts CALCIUM, IONIZED (test code = 30450) 5.50 MG/DL Delfino Schumacher LuktwjJWGMMSO8839-65-67 00:00:00* Test Item Value Reference Range Interpretation Comme nts CALCIUM (test code = 2209) 10.6 MG/DL Delfino Schumacher [id number] 00:00:00* Test Item Value Reference Range Interpretation Comme nts PHOSPHORUS (test code = 2227) 2.9 MG/DL Delfino Schumacher [facility] [id number] 00:00:00* Test Item Value Reference Range Interpretation Comme nts INTACT PTH (test code = 5005) 60 PG/ML Delfino Schumacher [facility], [id number] 00:00:00* Test Item Value Reference Range Interpretation Comme nts CALCIUM, IONIZED (test code = 97894) 5.50 MG/DL Delfino Schumacher NxorvrNIUWEWN2910-30-61 00:00:00* Test Item Value Reference Range Interpretation Comme nts CALCIUM (test code = 2209) 10.6 MG/DL Delfino Schumacher ImexnlGIBYQCEPZE3784-73-74 00:00:00* Test Item Value Reference Range Interpretation Comme nts PHOSPHORUS (test code = 2227) 2.9 MG/DL Delfino Schumacher [facility] [id number] 00:00:00* Test Item Value Reference Range Interpretation Comme nts INTACT PTH (test code = 5005) 60 PG/ML Delfino Schumacher [facility], [id number] 00:00:00* Test Item Value Reference Range Interpretation Comme nts CALCIUM, IONIZED (test code = 60401) 5.50 MG/DL Delfino Schumacher ZhlvdgUOMHUOZ4530-90-77 00:00:00* Test Item Value Reference Range Interpretation Comme nts CALCIUM (test code = 2209) 10.6 MG/DL Delfino Schumacher XwoljsEMNVFOUBKD1374-46-01 00:00:00* Test Item Value Reference Range Interpretation Comme nts PHOSPHORUS (test code = 2227) 2.9 MG/DL Delfino Schumacher [facility]IN[facility] [id number] 00:00:00* Test Item Value Reference Range Interpretation Comme nts INTACT PTH (test code = 5005) 60 PG/ML Delfino Schumacher [facility]CAL[facility], [id number] 00:00:00* Test Item Value Reference Range Interpretation Comme nts CALCIUM, IONIZED (test code = 17656) 5.50 MG/DL Delfino Schumacher RmdgmqYACOFVP2526-54-34 00:00:00* Test Item Value Reference Range Interpretation Comme nts CALCIUM (test code = 2209) 10.6 MG/DL Delfino Schumacher MymwgwRBFOORCYBH8901-37-88 00:00:00* Test Item Value Reference Range Interpretation Comme nts PHOSPHORUS (test code = 2227) 2.9 MG/DL Delfino Schumacher [facility] [id number] 00:00:00* Test Item Value Reference Range Interpretation Comme nts INTACT PTH (test code = 5005) 60 PG/ML Delfino Schumacher [facility], [id number] 00:00:00* Test Item Value Reference Range Interpretation Comme nts CALCIUM, IONIZED (test code = 44938) 5.50 MG/DL Delfino Schumacher [id number] 00:00:00* Test Item Value Reference Range Interpretation Comme nts CALCIUM (test code = 2209) 10.6 MG/DL Delfino Schumacher SslipoAHOJIWFUFJ4062-63-20 00:00:00* Test Item Value Reference Range Interpretation Comme nts PHOSPHORUS (test code = 2227) 2.9 MG/DL Delfino Schumacher [facility] [id number] 00:00:00* Test Item Value Reference Range Interpretation Comme nts INTACT PTH (test code = 5005) 60 PG/ML Delfino Schumacher [facility], [id number] 00:00:00* Test Item Value Reference Range Interpretation Comme nts CALCIUM, IONIZED (test code = 83299) 5.50 MG/DL Delfino Schumacher OufdkpMRPBJRL0943-38-57 00:00:00* Test Item Value Reference Range Interpretation Comme nts CALCIUM (test code = 2209) 10.6 MG/DL Delfino Schumacher ZqsntxUGHZDOQEFZ6745-94-63 00:00:00* Test Item Value Reference Range Interpretation Comme nts PHOSPHORUS (test code = 2227) 2.9 MG/DL Delfino Schumacher [facility] [id number] 00:00:00* Test Item Value Reference Range Interpretation Comme nts INTACT PTH (test code = 5005) 60 PG/ML Delfino Schumacher [facility], [id number] 00:00:00* Test Item Value Reference Range Interpretation Comme nts CALCIUM, IONIZED (test code = 42338) 5.50 MG/DL Delfino Schumacher GgrnmpWMXZMHX0803-73-78 00:00:00* Test Item Value Reference Range Interpretation Comme nts CALCIUM (test code = 2209) 10.6 MG/DL Delfino Schumacher JzfjitDVWIGKGFTJ9534-78-03 00:00:00* Test Item Value Reference Range Interpretation Comme nts PHOSPHORUS (test code = 2227) 2.9 MG/DL Delfino Schumacher [facility] [id number] 00:00:00* Test Item Value Reference Range Interpretation Comme nts INTACT PTH (test code = 5005) 60 PG/ML Delfino Schumacher [facility]CI[facility], [id number] 00:00:00* Test Item Value Reference Range Interpretation Comme nts CALCIUM, IONIZED (test code = 33630) 5.50 MG/DL Delfino Schumacher ShofegYILRNRC8536-08-43 00:00:00* Test Item Value Reference Range Interpretation Comme nts CALCIUM (test code = 2209) 10.6 MG/DL Delfino Schumacher XjxomuFFYFYREYDE8529-40-41 00:00:00* Test Item Value Reference Range Interpretation Comme nts PHOSPHORUS (test code = 2227) 2.9 MG/DL Delfino Schumacher [facility] [id number] 00:00:00* Test Item Value Reference Range Interpretation Comme nts INTACT PTH (test code = 5005) 60 PG/ML Delfino Schumacher [facility], [id number] 00:00:00* Test Item Value Reference Range Interpretation Comme nts CALCIUM, IONIZED (test code = 82749) 5.50 MG/DL Delfino Schumacher UmtswxAWLIEMO5505-97-67 00:00:00* Test Item Value Reference Range Interpretation Comme nts CALCIUM (test code = 2209) 10.6 MG/DL Delfino Schumacher [id number] 00:00:00* Test Item Value Reference Range Interpretation Comme nts PHOSPHORUS (test code = 2227) 2.9 MG/DL Delfino Schumacher [facility] [id number] 00:00:00* Test Item Value Reference Range Interpretation Comme nts INTACT PTH (test code = 5005) 60 PG/ML Delfino Schumacher [facility], [id number] 00:00:00* Test Item Value Reference Range Interpretation Comme nts CALCIUM, IONIZED (test code = 75502) 5.50 MG/DL Delfino Schumacher CsdxpaUYVPETC2731-06-22 00:00:00* Test Item Value Reference Range Interpretation Comme nts CALCIUM (test code = 2209) 10.6 MG/DL Delfino Schumacher WiyioaBQTDYDPGRZ0593-66-83 00:00:00* Test Item Value Reference Range Interpretation Comme nts PHOSPHORUS (test code = 2227) 2.9 MG/DL Delfino Schumacher [facility] [id number] 00:00:00* Test Item Value Reference Range Interpretation Comme nts INTACT PTH (test code = 5005) 60 PG/ML Delfino Schumacher [facility], [id number] 00:00:00* Test Item Value Reference Range Interpretation Comme nts CALCIUM, IONIZED (test code = 13542) 5.50 MG/DL Delfino Schumacher VgoxvvUTTKHUC5509-13-30 00:00:00* Test Item Value Reference Range Interpretation Comme nts CALCIUM (test code = 2209) 10.6 MG/DL Delfino Schumacher KpxvxlRVNPTLNNRO0009-30-11 00:00:00* Test Item Value Reference Range Interpretation Comme nts PHOSPHORUS (test code = 2227) 2.9 MG/DL Delfino Schumacher [facility] [id number] 00:00:00* Test Item Value Reference Range Interpretation Comme nts INTACT PTH (test code = 5005) 60 PG/ML Delfino Schumacher [facility], [id number] 00:00:00* Test Item Value Reference Range Interpretation Comme nts CALCIUM, IONIZED (test code = 07871) 5.50 MG/DL Delfino Schumacher MzowqiWNOGLPX0941-39-68 00:00:00* Test Item Value Reference Range Interpretation Comme nts CALCIUM (test code = 2209) 10.6 MG/DL Delfino Schumacher PicpugDCIAGOAFLX0372-12-89 00:00:00* Test Item Value Reference Range Interpretation Comme nts PHOSPHORUS (test code = 2227) 2.9 MG/DL Delfino Schumacher [facility] [id number] 00:00:00* Test Item Value Reference Range Interpretation Comme nts INTACT PTH (test code = 5005) 60 PG/ML Delfino Schumacher [facility], [id number] 00:00:00* Test Item Value Reference Range Interpretation Comme nts CALCIUM, IONIZED (test code = 72372) 5.50 MG/DL Delfino Schumacher [id number] 00:00:00* Test Item Value Reference Range Interpretation Comme nts CALCIUM (test code = 2209) 10.6 MG/DL Delfino Schumacher LjgoskAXMXRLUOLK8477-11-33 00:00:00* Test Item Value Reference Range Interpretation Comme nts PHOSPHORUS (test code = 2227) 2.9 MG/DL Delfino Schumacher [facility] [id number] 00:00:00* Test Item Value Reference Range Interpretation Comme nts INTACT PTH (test code = 5005) 60 PG/ML Delfino Schumacher [facility], [id number] 00:00:00* Test Item Value Reference Range Interpretation Comme nts CALCIUM, IONIZED (test code = 28629) 5.50 MG/DL Delfino Schumacher [id number] 00:00:00* Test Item Value Reference Range Interpretation Comme nts CALCIUM (test code = 2209) 10.6 MG/DL Delfino Schumacher YiiqgqVKWWRJJFRR8091-40-46 00:00:00* Test Item Value Reference Range Interpretation Comme nts PHOSPHORUS (test code = 2227) 2.9 MG/DL Delfino Schumacher [place] [id number] 00:00:00* Test Item Value Reference Range Interpretation Comme nts INTACT PTH (test code = 5005) 60 PG/ML Delfino Schumacher [place], [id number] 00:00:00* Test Item Value Reference Range Interpretation Comme nts CALCIUM, IONIZED (test code = 72565) 5.50 MG/DL Delfino Schumacher [id number] 00:00:00* Test Item Value Reference Range Interpretation Comme nts CALCIUM (test code = 2209) 10.6 MG/DL Delfino Schumacher [id number] 00:00:00* Test Item Value Reference Range Interpretation Comme nts PHOSPHORUS (test code = 2227) 2.9 MG/DL Delfino Schumacher [place] [id number] 00:00:00* Test Item Value Reference Range Interpretation Comme nts INTACT PTH (test code = 5005) 60 PG/ML Delfino Schumacher [place], [id number] 00:00:00* Test Item Value Reference Range Interpretation Comme nts CALCIUM, IONIZED (test code = 84611) 5.50 MG/DL Delfino Schumacher [id number] 00:00:00* Test Item Value Reference Range Interpretation Comme nts CALCIUM (test code = 2209) 10.6 MG/DL Delfino Schumacher [id number] 00:00:00* Test Item Value Reference Range Interpretation Comme nts PHOSPHORUS (test code = 2227) 2.9 MG/DL Delfino Schumacher [place] [id number] 00:00:00* Test Item Value Reference Range Interpretation Comme nts INTACT PTH (test code = 5005) 60 PG/ML Delfino Schumacher [place] [id number] 00:00:00* Test Item Value Reference Range Interpretation Comme nts INTACT PTH (test code = 5005) 60 PG/ML Delfino Schumacher AustinCALCIUM, [id number] 00:00:00* Test Item Value Reference Range Interpretation Comme nts CALCIUM, IONIZED (test code = 84283) 5.50 MG/DL Delfino Schumacher AustinCULTURE, [id number] 09:25:56SPECIMEN NUMBER: [id number] CULTURE, URINE SPECIMEN NUMBER: [id number] SPECIMEN COMMENT: URINE SOURCE: URINE REPORT STATUS: FINAL FINAL REPORT: 03/09/2023 10-50,000 CFU/ML UROGENITAL KARLA PRESENT NO COMMON PATHOGENSCULTNIALL, [id number] 00:00:00* Test Item Value Reference Range Interpretation Comme nts CULTURE, URINE (test code = 45775) SPECIMEN NUMBER: [id number] Delfino Cedeño [id number] 00:00:00* Test Item Value Reference Range Interpretation Comme nts CULTURE, URINE (test code = 77795) SPECIMEN NUMBER: [id number] Delfino Cedeño [id number] 00:00:00* Test Item Value Reference Range Interpretation Comme nts CULTURE, URINE (test code = 09964) SPECIMEN NUMBER: [id number] Delfino Cedeño, [id number] 00:00:00* Test Item Value Reference Range Interpretation Comme nts CULTURE, URINE (test code = 44433) SPECIMEN NUMBER: [id number] Delfino SarmientoLTNIALL, [id number] 00:00:00* Test Item Value Reference Range Interpretation Comme nts CULTURE, URINE (test code = 76787) SPECIMEN NUMBER: [id number] Delfino Cedeño, [id number] 00:00:00* Test Item Value Reference Range Interpretation Comme nts CULTURE, URINE (test code = 72485) SPECIMEN NUMBER: [id number] Delfino SarmientoLTNIALL, [id number] 00:00:00* Test Item Value Reference Range Interpretation Comme nts CULTURE, URINE (test code = 37642) SPECIMEN NUMBER: [id number] Delfino Cedeño, [id number] 00:00:00* Test Item Value Reference Range Interpretation Comme nts CULTURE, URINE (test code = 41197) SPECIMEN NUMBER: [id number] Delfino Cedeño, [id number] 00:00:00* Test Item Value Reference Range Interpretation Comme nts CULTURE, URINE (test code = 46109) SPECIMEN NUMBER: [id number] Delfino SarmientoLTNIALL, [id number] 00:00:00* Test Item Value Reference Range Interpretation Comme nts CULTURE, URINE (test code = 83884) SPECIMEN NUMBER: [id number] Delfino Cedeño [id number] 00:00:00* Test Item Value Reference Range Interpretation Comme nts CULTURE, URINE (test code = 67464) SPECIMEN NUMBER: [id number] Delfino Cedeño [id number] 00:00:00* Test Item Value Reference Range Interpretation Comme nts CULTURE, URINE (test code = 44821) SPECIMEN NUMBER: [id number] Delfino Cedeño [id number] 00:00:00* Test Item Value Reference Range Interpretation Comme nts CULTURE, URINE (test code = 55783) SPECIMEN NUMBER: [id number] Delfino Cedeño [id number] 00:00:00* Test Item Value Reference Range Interpretation Comme nts CULTURE, URINE (test code = 77273) SPECIMEN NUMBER: [id number] Delfino Cedeño [id number] 00:00:00* Test Item Value Reference Range Interpretation Comme nts CULTURE, URINE (test code = 51672) SPECIMEN NUMBER: [id number] Delfino Cedeño [id number] 00:00:00* Test Item Value Reference Range Interpretation Comme nts CULTURE, URINE (test code = 45976) SPECIMEN NUMBER: [id number] Delfino Cedeño [id number] 00:00:00* Test Item Value Reference Range Interpretation Comme nts CULTURE, URINE (test code = 06338) SPECIMEN NUMBER: [id number] Delfino Cedeño, [id number] 00:00:00* Test Item Value Reference Range Interpretation Comme nts CULTURE, URINE (test code = 41156) SPECIMEN NUMBER: [id number] Delfino Cedeño, [id number] 00:00:00* Test Item Value Reference Range Interpretation Comme nts CULTURE, URINE (test code = 36520) SPECIMEN NUMBER: [id number] Delfino Cedeño, [id number] 00:00:00* Test Item Value Reference Range Interpretation Comme nts CULTURE, URINE (test code = 64678) SPECIMEN NUMBER: [id number] Delfino Cedeño, [id number] 00:00:00* Test Item Value Reference Range Interpretation Comme nts CULTURE, URINE (test code = 38588) SPECIMEN NUMBER: [id number] Delfino Cedeño [id number] 00:00:00* Test Item Value Reference Range Interpretation Comme nts CULTURE, URINE (test code = 05023) SPECIMEN NUMBER: [id number] Delfino Cedeño [id number] 00:00:00* Test Item Value Reference Range Interpretation Comme nts CULTURE, URINE (test code = 55578) SPECIMEN NUMBER: [id number] Delfino Cedeño [id number] 00:00:00* Test Item Value Reference Range Interpretation Comme nts CULTURE, URINE (test code = 03821) SPECIMEN NUMBER: [id number] Delfino Cedeño [id number] 00:00:00* Test Item Value Reference Range Interpretation Comme nts CULTURE, URINE (test code = 58410) SPECIMEN NUMBER: [id number] Delfino Cedeño [id number] 00:00:00* Test Item Value Reference Range Interpretation Comme nts CULTURE, URINE (test code = 65278) SPECIMEN NUMBER: [id number] Delfino Cedeño, [id number] 00:00:00* Test Item Value Reference Range Interpretation Comme nts CULTURE, URINE (test code = 54925) SPECIMEN NUMBER: [id number] Delfino Cedeño, [id number] 00:00:00* Test Item Value Reference Range Interpretation Comme nts CULTURE, URINE (test code = 56431) SPECIMEN NUMBER: [id number] Delfino Cedeño, [id number] 00:00:00* Test Item Value Reference Range Interpretation Comme nts CULTURE, URINE (test code = 86042) SPECIMEN NUMBER: [id number] Delfino Cedeño, [id number] 00:00:00* Test Item Value Reference Range Interpretation Comme nts CULTURE, URINE (test code = 31071) SPECIMEN NUMBER: [id number] Delfino Cedeño, [id number] 00:00:00* Test Item Value Reference Range Interpretation Comme nts CULTURE, URINE (test code = 31604) SPECIMEN NUMBER: [id number] Delfino Cedeño [id number] 00:00:00* Test Item Value Reference Range Interpretation Comme nts CULTURE, URINE (test code = 71377) SPECIMEN NUMBER: [id number] Delfino Cedeño, [id number] 00:00:00* Test Item Value Reference Range Interpretation Comme nts CULTURE, URINE (test code = 52315) SPECIMEN NUMBER: [id number] Delfino Cedeño, [id number] 00:00:00* Test Item Value Reference Range Interpretation Comme nts CULTURE, URINE (test code = 02456) SPECIMEN NUMBER: [id number] Delfino OrtaCOMPREHENSIVE METABOLIC [id number] 04:45:25* Test Item Value Reference Range Interpretation Comme nts GLUCOSE (test code = 2217) 87 MG/DL 70-99 BUN (test code = 2207) 32 MG/DL 8-23 H CREATININE (test code = 2214) 1.39 MG/DL 0.60-1.30 H eGFR (2020 CKD-EPI) (test co de = 02588) 43 ML/MIN/1.73 >60 L CALC BUN/CREAT (test [...] code = 2219) 32 U/L 5-40 LIPID [id number] 04:45:25* Test Item Value Reference Range Interpretation [...] SPECIMENS. FOR MOREINFORMATION, SEE CLIENT ANNOUNCEMENT AT [email or web address] RISK RATIO LDL/HDL (test code = 2238) 0.58 RATIO <3.22 UNLESS OTHERW ISE INDICATED, ALL TESTING PERFORMED AT [facility] 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 CLIA NUMBER [id number] [facility] [place]. [id number] COMPREHENSIVE METABOLIC [id number] 00:00:00* Test Item Value Reference Range Interpretation Comme nts GLUCOSE (test code = 7) 87 MG/DL BUN (test code = 8) 32 MG/DL CREATININE (test code = 2214) 1.39 MG/DL eGFR (2020 CKD-EPI) (test co de = 68573) 43 ML/MIN/1.73 CALC BUN/CREAT (test code = 2235) 23 RATIO SODIUM (test code = 223) 141 MEQ/L POTASSIUM (test code = 2228) [...] = 2219) 32 U/L Delfino Schumacher AustinLIPID [id number] 00:00:00* Test Item Value Reference Range Interpretation Comme nts CHOLESTEROL (test code = 2210) 187 MG/DL TRIGLYCERIDES (test code = 2232) 58 MG/DL HDL CHOLESTEROL (test code = 2220) 110 MG/DL CALC LDL CHOL (test code = 2237) 64 MG/DL RISK RATIO LDL/HDL (test cod e = 2238) 0.58 RATIO Delfino OrtaCOMPREHENSIVE METABOLIC [id number] 00:00:00* Test Item Value Reference Range Interpretation Comme nts GLUCOSE (test code = 2217) 87 MG/DL BUN (test code = 2208) 32 MG/DL CREATININE (test code = 2214) 1.39 MG/DL eGFR (2020 CKD-EPI) (test co de = 48764) 43 ML/MIN/1.73 CALC BUN/CREAT (test code = [...] = 2219) 32 U/L Delfino Schumacher AustinLIPID [id number] 00:00:00* Test Item Value Reference Range Interpretation Comme nts CHOLESTEROL (test code = 2210) 187 MG/DL TRIGLYCERIDES (test code = 2232) 58 MG/DL HDL CHOLESTEROL (test code = 2220) 110 MG/DL CALC LDL CHOL (test code = 2237) 64 MG/DL RISK RATIO LDL/HDL (test cod e = 2238) 0.58 RATIO Delfino OrtaCOMPREHENSIVE METABOLIC [id number] 00:00:00* Test Item Value Reference Range Interpretation Comme nts GLUCOSE (test code = 2217) 87 MG/DL BUN (test code = 2208) 32 MG/DL CREATININE (test code = 2214) 1.39 MG/DL eGFR (2020 CKD-EPI) (test co de = 09722) 43 ML/MIN/1.73 CALC BUN/CREAT (test code = [...] = 2219) 32 U/L Delfino OrtaCOMPREHENSIVE METABOLIC [id number] 00:00:00* Test Item Value Reference Range Interpretation Comme nts GLUCOSE (test code = 2217) 87 MG/DL BUN (test code = 2208) 32 MG/DL CREATININE (test code = 2214) 1.39 MG/DL eGFR (2020 CKD-EPI) (test co de = 08991) 43 ML/MIN/1.73 CALC BUN/CREAT (test code = [...] code = 2219) 32 U/L Delfino OrtaLIPID [id number] 00:00:00* Test Item Value Reference Range Interpretation Comme nts CHOLESTEROL (test code = 2210) 187 MG/DL TRIGLYCERIDES (test code = 2232) 58 MG/DL HDL CHOLESTEROL (test code = 2220) 110 MG/DL CALC LDL CHOL (test code = 2237) 64 MG/DL RISK RATIO LDL/HDL (test cod e = 2238) 0.58 RATIO Delfino OrtaCOMPREHENSIVE METABOLIC [id number] 00:00:00* Test Item Value Reference Range Interpretation Comme nts GLUCOSE (test code = 2217) 87 MG/DL BUN (test code = 2208) 32 MG/DL CREATININE (test code = 2214) 1.39 MG/DL eGFR (2020 CKD-EPI) (test co de = 16679) 43 ML/MIN/1.73 CALC BUN/CREAT (test code = [...] (test code = 2219) 32 U/L Delfino OratLIPID [id number] 00:00:00* Test Item Value Reference Range Interpretation Comme nts CHOLESTEROL (test code = 2210) 187 MG/DL TRIGLYCERIDES (test code = 2232) 58 MG/DL HDL CHOLESTEROL (test code = 2220) 110 MG/DL CALC LDL CHOL (test code = 2237) 64 MG/DL RISK RATIO LDL/HDL (test cod e = 2238) 0.58 RATIO Delfino OrtaCOMPREHENSIVE METABOLIC [id number] 00:00:00* Test Item Value Reference Range Interpretation Comme nts GLUCOSE (test code = 2217) 87 MG/DL BUN (test code = 2208) 32 MG/DL CREATININE (test code = 2214) 1.39 MG/DL eGFR (2020 CKD-EPI) (test co de = 60033) 43 ML/MIN/1.73 CALC BUN/CREAT (test code = [...] = 2219) 32 U/L Delfino Schumacher AustinLIPID [id number] 00:00:00* Test Item Value Reference Range Interpretation Comme nts CHOLESTEROL (test code = 2210) 187 MG/DL TRIGLYCERIDES (test code = 2232) 58 MG/DL HDL CHOLESTEROL (test code = 2220) 110 MG/DL CALC LDL CHOL (test code = 2237) 64 MG/DL RISK RATIO LDL/HDL (test cod e = 2238) 0.58 RATIO Delfino Schumacher AustinLIPID [id number] 00:00:00* Test Item Value Reference Range Interpretation Comme nts CHOLESTEROL (test code = 2210) 187 MG/DL TRIGLYCERIDES (test code = 2232) 58 MG/DL HDL CHOLESTEROL (test code = 2220) 110 MG/DL CALC LDL CHOL (test code = 2237) 64 MG/DL RISK RATIO LDL/HDL (test cod e = 2238) 0.58 RATIO Delfino Schumacher AustinCOMPREHENSIVE METABOLIC [id number] 00:00:00* Test Item Value Reference Range Interpretation Comme nts GLUCOSE (test code = 2217) 87 MG/DL BUN (test code = 2208) 32 MG/DL CREATININE (test code = 2214) 1.39 MG/DL eGFR (2020 CKD-EPI) (test co de = 41065) 43 ML/MIN/1.73 CALC BUN/CREAT (test code = [...] code = 2219) 32 U/L Delfino OrtaLIPID [id number] 00:00:00* Test Item Value Reference Range Interpretation Comme nts CHOLESTEROL (test code = 2210) 187 MG/DL TRIGLYCERIDES (test code = 2232) 58 MG/DL HDL CHOLESTEROL (test code = 2220) 110 MG/DL CALC LDL CHOL (test code = 2237) 64 MG/DL RISK RATIO LDL/HDL (test cod e = 2238) 0.58 RATIO Delfino OrtaCOMPREHENSIVE METABOLIC [id number] 00:00:00* Test Item Value Reference Range Interpretation Comme nts GLUCOSE (test code = 2217) 87 MG/DL BUN (test code = 2208) 32 MG/DL CREATININE (test code = 2214) 1.39 MG/DL eGFR (2020 CKD-EPI) (test co de = 48508) 43 ML/MIN/1.73 CALC BUN/CREAT (test code = [...] code = 2219) 32 U/L Delfino OrtaLIPID [id number] 00:00:00* Test Item Value Reference Range Interpretation Comme nts CHOLESTEROL (test code = 2210) 187 MG/DL TRIGLYCERIDES (test code = 2232) 58 MG/DL HDL CHOLESTEROL (test code = 2220) 110 MG/DL CALC LDL CHOL (test code = 2237) 64 MG/DL RISK RATIO LDL/HDL (test cod e = 2238) 0.58 RATIO Delfino OrtaCOMPREHENSIVE METABOLIC [id number] 00:00:00* Test Item Value Reference Range Interpretation Comme nts GLUCOSE (test code = 2217) 87 MG/DL BUN (test code = 2208) 32 MG/DL CREATININE (test code = 2214) 1.39 MG/DL eGFR (2020 CKD-EPI) (test co de = 40776) 43 ML/MIN/1.73 CALC BUN/CREAT (test code = [...] code = 2219) 32 U/L Delfino Schumacher KinmundyLIPID [id number] 00:00:00* Test Item Value Reference Range Interpretation Comme nts CHOLESTEROL (test code = 2210) 187 MG/DL TRIGLYCERIDES (test code = 2232) 58 MG/DL HDL CHOLESTEROL (test code = 2220) 110 MG/DL CALC LDL CHOL (test code = 2237) 64 MG/DL RISK RATIO LDL/HDL (test cod e = 2238) 0.58 RATIO Delfino OrtaCOMPREHENSIVE METABOLIC [id number] 00:00:00* Test Item Value Reference Range Interpretation Comme nts GLUCOSE (test code = 2217) 87 MG/DL BUN (test code = 2208) 32 MG/DL CREATININE (test code = 2214) 1.39 MG/DL eGFR (2020 CKD-EPI) (test co de = 89227) 43 ML/MIN/1.73 CALC BUN/CREAT (test code = [...] code = 2219) 32 U/L Delfino OrtaLIPID [id number] 00:00:00* Test Item Value Reference Range Interpretation Comme nts CHOLESTEROL (test code = 2210) 187 MG/DL TRIGLYCERIDES (test code = 2232) 58 MG/DL HDL CHOLESTEROL (test code = 2220) 110 MG/DL CALC LDL CHOL (test code = 2237) 64 MG/DL RISK RATIO LDL/HDL (test cod e = 2238) 0.58 RATIO Delfino OrtaCOMPREHENSIVE METABOLIC [id number] 00:00:00* Test Item Value Reference Range Interpretation Comme nts GLUCOSE (test code = 2217) 87 MG/DL BUN (test code = 2208) 32 MG/DL CREATININE (test code = 2214) 1.39 MG/DL eGFR (2020 CKD-EPI) (test co de = 12835) 43 ML/MIN/1.73 CALC BUN/CREAT (test code = [...] code = 2219) 32 U/L Delfino OrtaLIPID [id number] 00:00:00* Test Item Value Reference Range Interpretation Comme nts CHOLESTEROL (test code = 2210) 187 MG/DL TRIGLYCERIDES (test code = 2232) 58 MG/DL HDL CHOLESTEROL (test code = 2220) 110 MG/DL CALC LDL CHOL (test code = 2237) 64 MG/DL RISK RATIO LDL/HDL (test cod e = 2238) 0.58 RATIO Delfino OrtaCOMPREHENSIVE METABOLIC [id number] 00:00:00* Test Item Value Reference Range Interpretation Comme nts GLUCOSE (test code = 2217) 87 MG/DL BUN (test code = 2208) 32 MG/DL CREATININE (test code = 2214) 1.39 MG/DL eGFR (2020 CKD-EPI) (test co de = 13128) 43 ML/MIN/1.73 CALC BUN/CREAT (test code = [...] code = 2219) 32 U/L Delfino OrtaLIPID [id number] 00:00:00* Test Item Value Reference Range Interpretation Comme nts CHOLESTEROL (test code = 2210) 187 MG/DL TRIGLYCERIDES (test code = 2232) 58 MG/DL HDL CHOLESTEROL (test code = 2220) 110 MG/DL CALC LDL CHOL (test code = 2237) 64 MG/DL RISK RATIO LDL/HDL (test cod e = 2238) 0.58 RATIO Delfino Schumacher AustinCOMPREHENSIVE METABOLIC [id number] 00:00:00* Test Item Value Reference Range Interpretation Comme nts GLUCOSE (test code = 2217) 87 MG/DL BUN (test code = 2208) 32 MG/DL CREATININE (test code = 2214) 1.39 MG/DL eGFR (2020 CKD-EPI) (test co de = 52340) 43 ML/MIN/1.73 CALC BUN/CREAT (test code = [...] code = 2219) 32 U/L Delfino OrtaLIPID [id number] 00:00:00* Test Item Value Reference Range Interpretation Comme nts CHOLESTEROL (test code = 2210) 187 MG/DL TRIGLYCERIDES (test code = 2232) 58 MG/DL HDL CHOLESTEROL (test code = 2220) 110 MG/DL CALC LDL CHOL (test code = 2237) 64 MG/DL RISK RATIO LDL/HDL (test cod e = 2238) 0.58 RATIO Delfino OrtaCOMPREHENSIVE METABOLIC [id number] 00:00:00* Test Item Value Reference Range Interpretation Comme nts GLUCOSE (test code = 2217) 87 MG/DL BUN (test code = 2208) 32 MG/DL CREATININE (test code = 2214) 1.39 MG/DL eGFR (2020 CKD-EPI) (test co de = 15150) 43 ML/MIN/1.73 CALC BUN/CREAT (test code = [...] = 2219) 32 U/L Delfino Schumacher AustinLIPID [id number] 00:00:00* Test Item Value Reference Range Interpretation Comme nts CHOLESTEROL (test code = 2210) 187 MG/DL TRIGLYCERIDES (test code = 2232) 58 MG/DL HDL CHOLESTEROL (test code = 2220) 110 MG/DL CALC LDL CHOL (test code = 2237) 64 MG/DL RISK RATIO LDL/HDL (test cod e = 2238) 0.58 RATIO Delfino OrtaCOMPREHENSIVE METABOLIC [id number] 00:00:00* Test Item Value Reference Range Interpretation Comme nts GLUCOSE (test code = 2217) 87 MG/DL BUN (test code = 2208) 32 MG/DL CREATININE (test code = 2214) 1.39 MG/DL eGFR (2020 CKD-EPI) (test co de = 14853) 43 ML/MIN/1.73 CALC BUN/CREAT (test code = [...] = 2219) 32 U/L Delfino Schumacher AustinLIPID [id number] 00:00:00* Test Item Value Reference Range Interpretation Comme nts CHOLESTEROL (test code = 2210) 187 MG/DL TRIGLYCERIDES (test code = 2232) 58 MG/DL HDL CHOLESTEROL (test code = 2220) 110 MG/DL CALC LDL CHOL (test code = 2237) 64 MG/DL RISK RATIO LDL/HDL (test cod e = 2238) 0.58 RATIO Delfino OrtaCOMPREHENSIVE METABOLIC [id number] 00:00:00* Test Item Value Reference Range Interpretation Comme nts GLUCOSE (test code = 2217) 87 MG/DL BUN (test code = 2208) 32 MG/DL CREATININE (test code = 2214) 1.39 MG/DL eGFR (2020 CKD-EPI) (test co de = 28619) 43 ML/MIN/1.73 CALC BUN/CREAT (test code = [...] = 2219) 32 U/L Delfino Schumacher AustinLIPID [id number] 00:00:00* Test Item Value Reference Range Interpretation Comme nts CHOLESTEROL (test code = 2210) 187 MG/DL TRIGLYCERIDES (test code = 2232) 58 MG/DL HDL CHOLESTEROL (test code = 2220) 110 MG/DL CALC LDL CHOL (test code = 2237) 64 MG/DL RISK RATIO LDL/HDL (test cod e = 2238) 0.58 RATIO Delfino OrtaCOMPREHENSIVE METABOLIC [id number] 00:00:00* Test Item Value Reference Range Interpretation Comme nts GLUCOSE (test code = 2217) 87 MG/DL BUN (test code = 2208) 32 MG/DL CREATININE (test code = 2214) 1.39 MG/DL eGFR (2020 CKD-EPI) (test co de = 05838) 43 ML/MIN/1.73 CALC BUN/CREAT (test code = [...] code = 2219) 32 U/L Delfino Endy KinmundyLIPID [id number] 00:00:00* Test Item Value Reference Range Interpretation Comme nts CHOLESTEROL (test code = 2210) 187 MG/DL TRIGLYCERIDES (test code = 2232) 58 MG/DL HDL CHOLESTEROL (test code = 2220) 110 MG/DL CALC LDL CHOL (test code = 2237) 64 MG/DL RISK RATIO LDL/HDL (test cod e = 2238) 0.58 RATIO Delfino Schumacher YouCOMPREHENSIVE METABOLIC [id number] 00:00:00* Test Item Value Reference Range Interpretation Comme nts GLUCOSE (test code = 2217) 87 MG/DL BUN (test code = 2208) 32 MG/DL CREATININE (test code = 2214) 1.39 MG/DL eGFR (2020 CKD-EPI) (test co de = 74490) 43 ML/MIN/1.73 CALC BUN/CREAT (test code = [...] code = 2219) 32 U/L Delfino OrtaLIPID [id number] 00:00:00* Test Item Value Reference Range Interpretation Comme nts CHOLESTEROL (test code = 2210) 187 MG/DL TRIGLYCERIDES (test code = 2232) 58 MG/DL HDL CHOLESTEROL (test code = 2220) 110 MG/DL CALC LDL CHOL (test code = 2237) 64 MG/DL RISK RATIO LDL/HDL (test cod e = 2238) 0.58 RATIO Delfino OrtaCOMPREHENSIVE METABOLIC [id number] 00:00:00* Test Item Value Reference Range Interpretation Comme nts GLUCOSE (test code = 2217) 87 MG/DL BUN (test code = 2208) 32 MG/DL CREATININE (test code = 2214) 1.39 MG/DL eGFR (2020 CKD-EPI) (test co de = 11550) 43 ML/MIN/1.73 CALC BUN/CREAT (test code = [...] code = 2219) 32 U/L Delfino OrtaLIPID [id number] 00:00:00* Test Item Value Reference Range Interpretation Comme nts CHOLESTEROL (test code = 2210) 187 MG/DL TRIGLYCERIDES (test code = 2232) 58 MG/DL HDL CHOLESTEROL (test code = 2220) 110 MG/DL CALC LDL CHOL (test code = 2237) 64 MG/DL RISK RATIO LDL/HDL (test cod e = 2238) 0.58 RATIO Delfino OrtaCOMPREHENSIVE METABOLIC [id number] 00:00:00* Test Item Value Reference Range Interpretation Comme nts GLUCOSE (test code = 2217) 87 MG/DL BUN (test code = 2208) 32 MG/DL CREATININE (test code = 2214) 1.39 MG/DL eGFR (2020 CKD-EPI) (test co de = 78750) 43 ML/MIN/1.73 CALC BUN/CREAT (test code = [...] = 2219) 32 U/L Delfino Schumacher AustinLIPID [id number] 00:00:00* Test Item Value Reference Range Interpretation Comme nts CHOLESTEROL (test code = 2210) 187 MG/DL TRIGLYCERIDES (test code = 2232) 58 MG/DL HDL CHOLESTEROL (test code = 2220) 110 MG/DL CALC LDL CHOL (test code = 2237) 64 MG/DL RISK RATIO LDL/HDL (test cod e = 2238) 0.58 RATIO Delfino OrtaCOMPREHENSIVE METABOLIC [id number] 00:00:00* Test Item Value Reference Range Interpretation Comme nts GLUCOSE (test code = 2217) 87 MG/DL BUN (test code = 2208) 32 MG/DL CREATININE (test code = 2214) 1.39 MG/DL eGFR (2020 CKD-EPI) (test co de = 65742) 43 ML/MIN/1.73 CALC BUN/CREAT (test code = [...] code = 2219) 32 U/L Delfino Schumacher KinmundyLIPID [id number] 00:00:00* Test Item Value Reference Range Interpretation Comme nts CHOLESTEROL (test code = 2210) 187 MG/DL TRIGLYCERIDES (test code = 2232) 58 MG/DL HDL CHOLESTEROL (test code = 2220) 110 MG/DL CALC LDL CHOL (test code = 2237) 64 MG/DL RISK RATIO LDL/HDL (test cod e = 2238) 0.58 RATIO Delfino F YouCOMPREHENSIVE METABOLIC [id number] 00:00:00* Test Item Value Reference Range Interpretation Comme nts GLUCOSE (test code = 2217) 87 MG/DL BUN (test code = 2208) 32 MG/DL CREATININE (test code = 2214) 1.39 MG/DL eGFR (2020 CKD-EPI) (test co de = 33917) 43 ML/MIN/1.73 CALC BUN/CREAT (test code = [...] code = 2219) 32 U/L Delfino Schumacher KinmundyLIPID [id number] 00:00:00* Test Item Value Reference Range Interpretation Comme nts CHOLESTEROL (test code = 2210) 187 MG/DL TRIGLYCERIDES (test code = 2232) 58 MG/DL HDL CHOLESTEROL (test code = 2220) 110 MG/DL CALC LDL CHOL (test code = 2237) 64 MG/DL RISK RATIO LDL/HDL (test cod e = 2238) 0.58 RATIO Delfino OrtaCOMPREHENSIVE METABOLIC [id number] 00:00:00* Test Item Value Reference Range Interpretation Comme nts GLUCOSE (test code = 2217) 87 MG/DL BUN (test code = 2208) 32 MG/DL CREATININE (test code = 2214) 1.39 MG/DL eGFR (2020 CKD-EPI) (test co de = 79205) 43 ML/MIN/1.73 CALC BUN/CREAT (test code = [...] code = 2219) 32 U/L Delfino OrtaLIPID [id number] 00:00:00* Test Item Value Reference Range Interpretation Comme nts CHOLESTEROL (test code = 2210) 187 MG/DL TRIGLYCERIDES (test code = 2232) 58 MG/DL HDL CHOLESTEROL (test code = 2220) 110 MG/DL CALC LDL CHOL (test code = 2237) 64 MG/DL RISK RATIO LDL/HDL (test cod e = 2238) 0.58 RATIO Delfino Schumacher AustinCOMPREHENSIVE METABOLIC [id number] 00:00:00* Test Item Value Reference Range Interpretation Comme nts GLUCOSE (test code = 2217) 87 MG/DL BUN (test code = 2208) 32 MG/DL CREATININE (test code = 2214) 1.39 MG/DL eGFR (2020 CKD-EPI) (test co de = 68815) 43 ML/MIN/1.73 CALC BUN/CREAT (test code = [...] = 2219) 32 U/L Delfino Schumacher AustinLIPID [id number] 00:00:00* Test Item Value Reference Range Interpretation Comme nts CHOLESTEROL (test code = 2210) 187 MG/DL TRIGLYCERIDES (test code = 2232) 58 MG/DL HDL CHOLESTEROL (test code = 2220) 110 MG/DL CALC LDL CHOL (test code = 2237) 64 MG/DL RISK RATIO LDL/HDL (test cod e = 2238) 0.58 RATIO Delfino OrtaCOMPREHENSIVE METABOLIC [id number] 00:00:00* Test Item Value Reference Range Interpretation Comme nts GLUCOSE (test code = 2217) 87 MG/DL BUN (test code = 2208) 32 MG/DL CREATININE (test code = 2214) 1.39 MG/DL eGFR (2020 CKD-EPI) (test co de = 78796) 43 ML/MIN/1.73 CALC BUN/CREAT (test code = [...] = 2219) 32 U/L Delfino Schumacher AustinLIPID [id number] 00:00:00* Test Item Value Reference Range Interpretation Comme nts CHOLESTEROL (test code = 2210) 187 MG/DL TRIGLYCERIDES (test code = 2232) 58 MG/DL HDL CHOLESTEROL (test code = 2220) 110 MG/DL CALC LDL CHOL (test code = 2237) 64 MG/DL RISK RATIO LDL/HDL (test cod e = 2238) 0.58 RATIO Delfino Schumacher KinmundyCOMPREHENSIVE METABOLIC [id number] 00:00:00* Test Item Value Reference Range Interpretation Comme nts GLUCOSE (test code = 2217) 87 MG/DL BUN (test code = 2208) 32 MG/DL CREATININE (test code = 2214) 1.39 MG/DL eGFR (2020 CKD-EPI) (test co de = 75178) 43 ML/MIN/1.73 CALC BUN/CREAT (test code = [...] code = 2219) 32 U/L Delfino OrtaLIPID [id number] 00:00:00* Test Item Value Reference Range Interpretation Comme nts CHOLESTEROL (test code = 2210) 187 MG/DL TRIGLYCERIDES (test code = 2232) 58 MG/DL HDL CHOLESTEROL (test code = 2220) 110 MG/DL CALC LDL CHOL (test code = 2237) 64 MG/DL RISK RATIO LDL/HDL (test cod e = 2238) 0.58 RATIO Delfino OrtaCOMPREHENSIVE METABOLIC [id number] 00:00:00* Test Item Value Reference Range Interpretation Comme nts GLUCOSE (test code = 2217) 87 MG/DL BUN (test code = 2208) 32 MG/DL CREATININE (test code = 2214) 1.39 MG/DL eGFR (2020 CKD-EPI) (test co de = 06677) 43 ML/MIN/1.73 CALC BUN/CREAT (test code = [...] code = 2219) 32 U/L Delfino OrtaLIPID [id number] 00:00:00* Test Item Value Reference Range Interpretation Comme nts CHOLESTEROL (test code = 2210) 187 MG/DL TRIGLYCERIDES (test code = 2232) 58 MG/DL HDL CHOLESTEROL (test code = 2220) 110 MG/DL CALC LDL CHOL (test code = 2237) 64 MG/DL RISK RATIO LDL/HDL (test cod e = 2238) 0.58 RATIO Delfino OrtaCOMPREHENSIVE METABOLIC [id number] 00:00:00* Test Item Value Reference Range Interpretation Comme nts GLUCOSE (test code = 2217) 87 MG/DL BUN (test code = 2208) 32 MG/DL CREATININE (test code = 2214) 1.39 MG/DL eGFR (2020 CKD-EPI) (test co de = 79106) 43 ML/MIN/1.73 CALC BUN/CREAT (test code = [...] (test code = 2219) 32 U/L Delfino rOtaLIPID [id number] 00:00:00* Test Item Value Reference Range Interpretation Comme nts CHOLESTEROL (test code = 2210) 187 MG/DL TRIGLYCERIDES (test code = 2232) 58 MG/DL HDL CHOLESTEROL (test code = 2220) 110 MG/DL CALC LDL CHOL (test code = 2237) 64 MG/DL RISK RATIO LDL/HDL (test cod e = 2238) 0.58 RATIO Delfino Schumacher AustinCOMPREHENSIVE METABOLIC [id number] 00:00:00* Test Item Value Reference Range Interpretation Comme nts GLUCOSE (test code = 2217) 87 MG/DL BUN (test code = 2208) 32 MG/DL CREATININE (test code = 2214) 1.39 MG/DL eGFR (2020 CKD-EPI) (test co de = 19615) 43 ML/MIN/1.73 CALC BUN/CREAT (test code = [...] = 2219) 32 U/L Delfino Schumacher AustinLIPID [id number] 00:00:00* Test Item Value Reference Range Interpretation Comme nts CHOLESTEROL (test code = 2210) 187 MG/DL TRIGLYCERIDES (test code = 2232) 58 MG/DL HDL CHOLESTEROL (test code = 2220) 110 MG/DL CALC LDL CHOL (test code = 2237) 64 MG/DL RISK RATIO LDL/HDL (test cod e = 2238) 0.58 RATIO Delfino Schumacher AustinCOMPREHENSIVE METABOLIC [id number] 00:00:00* Test Item Value Reference Range Interpretation Comme nts GLUCOSE (test code = 2217) 87 MG/DL BUN (test code = 2208) 32 MG/DL CREATININE (test code = 2214) 1.39 MG/DL eGFR (2020 CKD-EPI) (test co de = 00045) 43 ML/MIN/1.73 CALC BUN/CREAT (test code = [...] code = 2219) 32 U/L Delfino OrtaLIPID [id number] 00:00:00* Test Item Value Reference Range Interpretation Comme nts CHOLESTEROL (test code = 2210) 187 MG/DL TRIGLYCERIDES (test code = 2232) 58 MG/DL HDL CHOLESTEROL (test code = 2220) 110 MG/DL CALC LDL CHOL (test code = 2237) 64 MG/DL RISK RATIO LDL/HDL (test cod e = 2238) 0.58 RATIO Delfino Schumacher YouCOMPREHENSIVE METABOLIC [id number] 00:00:00* Test Item Value Reference Range Interpretation Comme nts GLUCOSE (test code = 2217) 87 MG/DL BUN (test code = 2208) 32 MG/DL CREATININE (test code = 2214) 1.39 MG/DL eGFR (2020 CKD-EPI) (test co de = 26172) 43 ML/MIN/1.73 CALC BUN/CREAT (test code = [...] code = 2219) 32 U/L Delfino OrtaLIPID [id number] 00:00:00* Test Item Value Reference Range Interpretation Comme nts CHOLESTEROL (test code = 2210) 187 MG/DL TRIGLYCERIDES (test code = 2232) 58 MG/DL HDL CHOLESTEROL (test code = 2220) 110 MG/DL CALC LDL CHOL (test code = 2237) 64 MG/DL RISK RATIO LDL/HDL (test cod e = 2238) 0.58 RATIO Deflino OrtaCOMPREHENSIVE METABOLIC [id number] 00:00:00* Test Item Value Reference Range Interpretation Comme nts GLUCOSE (test code = 2217) 87 MG/DL BUN (test code = 2208) 32 MG/DL CREATININE (test code = 2214) 1.39 MG/DL eGFR (2020 CKD-EPI) (test co de = 15854) 43 ML/MIN/1.73 CALC BUN/CREAT (test code = [...] = 2219) 32 U/L Delfino Schumacher AustinLIPID [id number] 00:00:00* Test Item Value Reference Range Interpretation Comme nts CHOLESTEROL (test code = 2210) 187 MG/DL TRIGLYCERIDES (test code = 2232) 58 MG/DL HDL CHOLESTEROL (test code = 2220) 110 MG/DL CALC LDL CHOL (test code = 2237) 64 MG/DL RISK RATIO LDL/HDL (test cod e = 2238) 0.58 RATIO Delfino OrtaCOMPREHENSIVE METABOLIC [id number] 00:00:00* Test Item Value Reference Range Interpretation Comme nts GLUCOSE (test code = 2217) 87 MG/DL BUN (test code = 2208) 32 MG/DL CREATININE (test code = 2214) 1.39 MG/DL eGFR (2020 CKD-EPI) (test co de = 47426) 43 ML/MIN/1.73 CALC BUN/CREAT (test code = [...] = 2219) 32 U/L Delfino Schumacher AustinLIPID [id number] 00:00:00* Test Item Value Reference Range Interpretation Comme nts CHOLESTEROL (test code = 2210) 187 MG/DL TRIGLYCERIDES (test code = 2232) 58 MG/DL HDL CHOLESTEROL (test code = 2220) 110 MG/DL CALC LDL CHOL (test code = 2237) 64 MG/DL RISK RATIO LDL/HDL (test cod e = 2238) 0.58 RATIO Delfino OrtaCOMPREHENSIVE METABOLIC [id number] 00:00:00* Test Item Value Reference Range Interpretation Comme nts GLUCOSE (test code = 2217) 87 MG/DL BUN (test code = 2208) 32 MG/DL CREATININE (test code = 2214) 1.39 MG/DL eGFR (2020 CKD-EPI) (test co de = 93560) 43 ML/MIN/1.73 CALC BUN/CREAT (test code = [...] code = 2219) 32 U/L Delfino Endy KinmundyLIPID [id number] 00:00:00* Test Item Value Reference Range Interpretation Comme nts CHOLESTEROL (test code = 2210) 187 MG/DL TRIGLYCERIDES (test code = 2232) 58 MG/DL HDL CHOLESTEROL (test code = 2220) 110 MG/DL CALC LDL CHOL (test code = 2237) 64 MG/DL RISK RATIO LDL/HDL (test cod e = 2238) 0.58 RATIO Delfino Schumacher YouCOMPREHENSIVE METABOLIC [id number] 00:00:00* Test Item Value Reference Range Interpretation Comme nts GLUCOSE (test code = 2217) 74 MG/DL BUN (test code = 2208) 16 MG/DL CREATININE (test code = 2214) 0.96 MG/DL eGFR (2020 CKD-EPI) (test co de = 41308) 69 ML/MIN/1.73 CALC BUN/CREAT (test code = [...] (test code = 2219) 13 U/L LIPID [id number] 00:00:00* Test Item Value Reference Range Interpretation Comme nts CHOLESTEROL (test code = 2210) 183 MG/DL TRIGLYCERIDES (test code = 2232) 69 MG/DL HDL CHOLESTEROL (test code = 2220) 93 MG/DL CALC LDL CHOL (test code = 2237) 75 MG/DL RISK RATIO LDL/HDL (test cod e = 2238) 0.81 RATIO LIPID [id number] 00:00:00* Test Item Value Reference Range Interpretation Comme nts CHOLESTEROL (test code = 2210) 183 MG/DL TRIGLYCERIDES (test code = 2232) 69 MG/DL HDL CHOLESTEROL (test code = 2220) 93 MG/DL CALC LDL CHOL (test code = 2237) 75 MG/DL RISK RATIO LDL/HDL (test cod e = 2238) 0.81 RATIO Delfino F AustinCOMPREHENSIVE METABOLIC [id number] 00:00:00* Test Item Value Reference Range Interpretation Comme nts GLUCOSE (test code = 2217) 74 MG/DL BUN (test code = 2208) 16 MG/DL CREATININE (test code = 2214) 0.96 MG/DL eGFR (2020 CKD-EPI) (test co de = 52692) 69 ML/MIN/1.73 CALC BUN/CREAT (test code = [...] = 2219) 13 U/L Delfino OrtaCOMPREHENSIVE METABOLIC [id number] 00:00:00* Test Item Value Reference Range Interpretation Comme nts GLUCOSE (test code = 2217) 74 MG/DL BUN (test code = 2208) 16 MG/DL CREATININE (test code = 2214) 0.96 MG/DL eGFR (2020 CKD-EPI) (test co de = 12981) 69 ML/MIN/1.73 CALC BUN/CREAT (test code = [...] = 2219) 13 U/L Delfino Schumacher AustinLIPID [id number] 00:00:00* Test Item Value Reference Range Interpretation Comme nts CHOLESTEROL (test code = 2210) 183 MG/DL TRIGLYCERIDES (test code = 2232) 69 MG/DL HDL CHOLESTEROL (test code = 2220) 93 MG/DL CALC LDL CHOL (test code = 2237) 75 MG/DL RISK RATIO LDL/HDL (test cod e = 2238) 0.81 RATIO Delfino Schumacher AustinCOMPREHENSIVE METABOLIC [id number] 00:00:00* Test Item Value Reference Range Interpretation Comme nts GLUCOSE (test code = 2217) 74 MG/DL BUN (test code = 2208) 16 MG/DL CREATININE (test code = 2214) 0.96 MG/DL eGFR (2020 CKD-EPI) (test co de = 39849) 69 ML/MIN/1.73 CALC BUN/CREAT (test code = [...] = 2219) 13 U/L Delfino Schumacher AustinLIPID [id number] 00:00:00* Test Item Value Reference Range Interpretation Comme nts CHOLESTEROL (test code = 2210) 183 MG/DL TRIGLYCERIDES (test code = 2232) 69 MG/DL HDL CHOLESTEROL (test code = 2220) 93 MG/DL CALC LDL CHOL (test code = 2237) 75 MG/DL RISK RATIO LDL/HDL (test cod e = 2238) 0.81 RATIO Delfino Schumacher AustinLIPID [id number] 00:00:00* Test Item Value Reference Range Interpretation Comme nts CHOLESTEROL (test code = 2210) 183 MG/DL TRIGLYCERIDES (test code = 2232) 69 MG/DL HDL CHOLESTEROL (test code = 2220) 93 MG/DL CALC LDL CHOL (test code = 2237) 75 MG/DL RISK RATIO LDL/HDL (test cod e = 2238) 0.81 RATIO Delfino Schumacher AustinCOMPREHENSIVE METABOLIC [id number] 00:00:00* Test Item Value Reference Range Interpretation Comme nts GLUCOSE (test code = 2217) 74 MG/DL BUN (test code = 2208) 16 MG/DL CREATININE (test code = 2214) 0.96 MG/DL eGFR (2020 CKD-EPI) (test co de = 73774) 69 ML/MIN/1.73 CALC BUN/CREAT (test code = [...] code = 2219) 13 U/L Delfino Schumacher KinmundyLIPID [id number] 00:00:00* Test Item Value Reference Range Interpretation Comme nts CHOLESTEROL (test code = 2210) 183 MG/DL TRIGLYCERIDES (test code = 2232) 69 MG/DL HDL CHOLESTEROL (test code = 2220) 93 MG/DL CALC LDL CHOL (test code = 2237) 75 MG/DL RISK RATIO LDL/HDL (test cod e = 2238) 0.81 RATIO Delfino Schumacher YouCOMPREHENSIVE METABOLIC [id number] 00:00:00* Test Item Value Reference Range Interpretation Comme nts GLUCOSE (test code = 2217) 74 MG/DL BUN (test code = 2208) 16 MG/DL CREATININE (test code = 2214) 0.96 MG/DL eGFR (2020 CKD-EPI) (test co de = 81713) 69 ML/MIN/1.73 CALC BUN/CREAT (test code = [...] = 2219) 13 U/L Delfino Schumacher AustinLIPID [id number] 00:00:00* Test Item Value Reference Range Interpretation Comme nts CHOLESTEROL (test code = 2210) 183 MG/DL TRIGLYCERIDES (test code = 2232) 69 MG/DL HDL CHOLESTEROL (test code = 2220) 93 MG/DL CALC LDL CHOL (test code = 2237) 75 MG/DL RISK RATIO LDL/HDL (test cod e = 2238) 0.81 RATIO Delfino OrtaCOMPREHENSIVE METABOLIC [id number] 00:00:00* Test Item Value Reference Range Interpretation Comme nts GLUCOSE (test code = 2217) 74 MG/DL BUN (test code = 2208) 16 MG/DL CREATININE (test code = 2214) 0.96 MG/DL eGFR (2020 CKD-EPI) (test co de = 46863) 69 ML/MIN/1.73 CALC BUN/CREAT (test code = [...] = 2219) 13 U/L Delfino Schumacher AustinLIPID [id number] 00:00:00* Test Item Value Reference Range Interpretation Comme nts CHOLESTEROL (test code = 2210) 183 MG/DL TRIGLYCERIDES (test code = 2232) 69 MG/DL HDL CHOLESTEROL (test code = 2220) 93 MG/DL CALC LDL CHOL (test code = 2237) 75 MG/DL RISK RATIO LDL/HDL (test cod e = 2238) 0.81 RATIO Delfino Schumacher AustinCOMPREHENSIVE METABOLIC [id number] 00:00:00* Test Item Value Reference Range Interpretation Comme nts GLUCOSE (test code = 2217) 74 MG/DL BUN (test code = 2208) 16 MG/DL CREATININE (test code = 2214) 0.96 MG/DL eGFR (2020 CKD-EPI) (test co de = 22798) 69 ML/MIN/1.73 CALC BUN/CREAT (test code = [...] = 2219) 13 U/L Delfino Schumacher AustinLIPID [id number] 00:00:00* Test Item Value Reference Range Interpretation Comme nts CHOLESTEROL (test code = 2210) 183 MG/DL TRIGLYCERIDES (test code = 2232) 69 MG/DL HDL CHOLESTEROL (test code = 2220) 93 MG/DL CALC LDL CHOL (test code = 2237) 75 MG/DL RISK RATIO LDL/HDL (test cod e = 2238) 0.81 RATIO Delfino Schumacher AustinCOMPREHENSIVE METABOLIC [id number] 00:00:00* Test Item Value Reference Range Interpretation Comme nts GLUCOSE (test code = 2217) 74 MG/DL BUN (test code = 2208) 16 MG/DL CREATININE (test code = 2214) 0.96 MG/DL eGFR (2020 CKD-EPI) (test co de = 35040) 69 ML/MIN/1.73 CALC BUN/CREAT (test code = [...] code = 2219) 13 U/L Delfino OrtaLIPID [id number] 00:00:00* Test Item Value Reference Range Interpretation Comme nts CHOLESTEROL (test code = 2210) 183 MG/DL TRIGLYCERIDES (test code = 2232) 69 MG/DL HDL CHOLESTEROL (test code = 2220) 93 MG/DL CALC LDL CHOL (test code = 2237) 75 MG/DL RISK RATIO LDL/HDL (test cod e = 2238) 0.81 RATIO Delfino Endy YouCOMPREHENSIVE METABOLIC [id number] 00:00:00* Test Item Value Reference Range Interpretation Comme nts GLUCOSE (test code = 2217) 74 MG/DL BUN (test code = 2208) 16 MG/DL CREATININE (test code = 2214) 0.96 MG/DL eGFR (2020 CKD-EPI) (test co de = 19452) 69 ML/MIN/1.73 CALC BUN/CREAT (test code = [...] code = 2219) 13 U/L Delfino OrtaLIPID [id number] 00:00:00* Test Item Value Reference Range Interpretation Comme nts CHOLESTEROL (test code = 2210) 183 MG/DL TRIGLYCERIDES (test code = 2232) 69 MG/DL HDL CHOLESTEROL (test code = 2220) 93 MG/DL CALC LDL CHOL (test code = 2237) 75 MG/DL RISK RATIO LDL/HDL (test cod e = 2238) 0.81 RATIO Delfino OrtaCOMPREHENSIVE METABOLIC [id number] 00:00:00* Test Item Value Reference Range Interpretation Comme nts GLUCOSE (test code = 2217) 74 MG/DL BUN (test code = 2208) 16 MG/DL CREATININE (test code = 2214) 0.96 MG/DL eGFR (2020 CKD-EPI) (test co de = 60531) 69 ML/MIN/1.73 CALC BUN/CREAT (test code = [...] code = 2219) 13 U/L Delfino OrtaLIPID [id number] 00:00:00* Test Item Value Reference Range Interpretation Comme nts CHOLESTEROL (test code = 2210) 183 MG/DL TRIGLYCERIDES (test code = 2232) 69 MG/DL HDL CHOLESTEROL (test code = 2220) 93 MG/DL CALC LDL CHOL (test code = 2237) 75 MG/DL RISK RATIO LDL/HDL (test cod e = 2238) 0.81 RATIO Delfino OrtaCOMPREHENSIVE METABOLIC [id number] 00:00:00* Test Item Value Reference Range Interpretation Comme nts GLUCOSE (test code = 2217) 74 MG/DL BUN (test code = 2208) 16 MG/DL CREATININE (test code = 2214) 0.96 MG/DL eGFR (2020 CKD-EPI) (test co de = 26126) 69 ML/MIN/1.73 CALC BUN/CREAT (test code = [...] = 2219) 13 U/L Delfino Schumacher AustinLIPID [id number] 00:00:00* Test Item Value Reference Range Interpretation Comme nts CHOLESTEROL (test code = 2210) 183 MG/DL TRIGLYCERIDES (test code = 2232) 69 MG/DL HDL CHOLESTEROL (test code = 2220) 93 MG/DL CALC LDL CHOL (test code = 2237) 75 MG/DL RISK RATIO LDL/HDL (test cod e = 2238) 0.81 RATIO Delfino Schumacher AustinCOMPREHENSIVE METABOLIC [id number] 00:00:00* Test Item Value Reference Range Interpretation Comme nts GLUCOSE (test code = 2217) 74 MG/DL BUN (test code = 2208) 16 MG/DL CREATININE (test code = 2214) 0.96 MG/DL eGFR (2020 CKD-EPI) (test co de = 05998) 69 ML/MIN/1.73 CALC BUN/CREAT (test code = [...] = 2219) 13 U/L Delfino Schumacher AustinLIPID [id number] 00:00:00* Test Item Value Reference Range Interpretation Comme nts CHOLESTEROL (test code = 2210) 183 MG/DL TRIGLYCERIDES (test code = 2232) 69 MG/DL HDL CHOLESTEROL (test code = 2220) 93 MG/DL CALC LDL CHOL (test code = 2237) 75 MG/DL RISK RATIO LDL/HDL (test cod e = 2238) 0.81 RATIO Delfino Schumacher AustinCOMPREHENSIVE METABOLIC [id number] 00:00:00* Test Item Value Reference Range Interpretation Comme nts GLUCOSE (test code = 2217) 74 MG/DL BUN (test code = 2208) 16 MG/DL CREATININE (test code = 2214) 0.96 MG/DL eGFR (2020 CKD-EPI) (test co de = 04638) 69 ML/MIN/1.73 CALC BUN/CREAT (test code = [...] code = 2219) 13 U/L Delfino OrtaLIPID [id number] 00:00:00* Test Item Value Reference Range Interpretation Comme nts CHOLESTEROL (test code = 2210) 183 MG/DL TRIGLYCERIDES (test code = 2232) 69 MG/DL HDL CHOLESTEROL (test code = 2220) 93 MG/DL CALC LDL CHOL (test code = 2237) 75 MG/DL RISK RATIO LDL/HDL (test cod e = 2238) 0.81 RATIO Delfino Schumacher YouCOMPREHENSIVE METABOLIC [id number] 00:00:00* Test Item Value Reference Range Interpretation Comme nts GLUCOSE (test code = 2217) 74 MG/DL BUN (test code = 2208) 16 MG/DL CREATININE (test code = 2214) 0.96 MG/DL eGFR (2020 CKD-EPI) (test co de = 90738) 69 ML/MIN/1.73 CALC BUN/CREAT (test code = [...] code = 2219) 13 U/L Delfino OrtaLIPID [id number] 00:00:00* Test Item Value Reference Range Interpretation Comme nts CHOLESTEROL (test code = 2210) 183 MG/DL TRIGLYCERIDES (test code = 2232) 69 MG/DL HDL CHOLESTEROL (test code = 2220) 93 MG/DL CALC LDL CHOL (test code = 2237) 75 MG/DL RISK RATIO LDL/HDL (test cod e = 2238) 0.81 RATIO Delfino OrtaCOMPREHENSIVE METABOLIC [id number] 00:00:00* Test Item Value Reference Range Interpretation Comme nts GLUCOSE (test code = 2217) 74 MG/DL BUN (test code = 2208) 16 MG/DL CREATININE (test code = 2214) 0.96 MG/DL eGFR (2020 CKD-EPI) (test co de = 63893) 69 ML/MIN/1.73 CALC BUN/CREAT (test code = [...] code = 2219) 13 U/L Delfino OrtaLIPID [id number] 00:00:00* Test Item Value Reference Range Interpretation Comme nts CHOLESTEROL (test code = 2210) 183 MG/DL TRIGLYCERIDES (test code = 2232) 69 MG/DL HDL CHOLESTEROL (test code = 2220) 93 MG/DL CALC LDL CHOL (test code = 2237) 75 MG/DL RISK RATIO LDL/HDL (test cod e = 2238) 0.81 RATIO Delfino Schumacher AustinCOMPREHENSIVE METABOLIC [id number] 00:00:00* Test Item Value Reference Range Interpretation Comme nts GLUCOSE (test code = 2217) 74 MG/DL BUN (test code = 2208) 16 MG/DL CREATININE (test code = 2214) 0.96 MG/DL eGFR (2020 CKD-EPI) (test co de = 01579) 69 ML/MIN/1.73 CALC BUN/CREAT (test code = [...] = 2219) 13 U/L Delfino Schumacher AustinLIPID [id number] 00:00:00* Test Item Value Reference Range Interpretation Comme nts CHOLESTEROL (test code = 2210) 183 MG/DL TRIGLYCERIDES (test code = 2232) 69 MG/DL HDL CHOLESTEROL (test code = 2220) 93 MG/DL CALC LDL CHOL (test code = 2237) 75 MG/DL RISK RATIO LDL/HDL (test cod e = 2238) 0.81 RATIO Delfino Schumacher AustinCOMPREHENSIVE METABOLIC [id number] 00:00:00* Test Item Value Reference Range Interpretation Comme nts GLUCOSE (test code = 2217) 74 MG/DL BUN (test code = 2208) 16 MG/DL CREATININE (test code = 2214) 0.96 MG/DL eGFR (2020 CKD-EPI) (test co de = 09857) 69 ML/MIN/1.73 CALC BUN/CREAT (test code = [...] code = 2219) 13 U/L Delfino Schumacher KinmundyLIPID [id number] 00:00:00* Test Item Value Reference Range Interpretation Comme nts CHOLESTEROL (test code = 2210) 183 MG/DL TRIGLYCERIDES (test code = 2232) 69 MG/DL HDL CHOLESTEROL (test code = 2220) 93 MG/DL CALC LDL CHOL (test code = 2237) 75 MG/DL RISK RATIO LDL/HDL (test cod e = 2238) 0.81 RATIO Delfino OrtaCOMPREHENSIVE METABOLIC [id number] 00:00:00* Test Item Value Reference Range Interpretation Comme nts GLUCOSE (test code = 2217) 74 MG/DL BUN (test code = 2208) 16 MG/DL CREATININE (test code = 2214) 0.96 MG/DL eGFR (2020 CKD-EPI) (test co de = 37819) 69 ML/MIN/1.73 CALC BUN/CREAT (test code = [...] = 2219) 13 U/L Delfino Schumacher AustinLIPID [id number] 00:00:00* Test Item Value Reference Range Interpretation Comme nts CHOLESTEROL (test code = 2210) 183 MG/DL TRIGLYCERIDES (test code = 2232) 69 MG/DL HDL CHOLESTEROL (test code = 2220) 93 MG/DL CALC LDL CHOL (test code = 2237) 75 MG/DL RISK RATIO LDL/HDL (test cod e = 2238) 0.81 RATIO Delfino OrtaCOMPREHENSIVE METABOLIC [id number] 00:00:00* Test Item Value Reference Range Interpretation Comme nts GLUCOSE (test code = 2217) 74 MG/DL BUN (test code = 2208) 16 MG/DL CREATININE (test code = 2214) 0.96 MG/DL eGFR (2020 CKD-EPI) (test co de = 01502) 69 ML/MIN/1.73 CALC BUN/CREAT (test code = [...] = 2219) 13 U/L Delfino Schumacher AustinLIPID [id number] 00:00:00* Test Item Value Reference Range Interpretation Comme nts CHOLESTEROL (test code = 2210) 183 MG/DL TRIGLYCERIDES (test code = 2232) 69 MG/DL HDL CHOLESTEROL (test code = 2220) 93 MG/DL CALC LDL CHOL (test code = 2237) 75 MG/DL RISK RATIO LDL/HDL (test cod e = 2238) 0.81 RATIO Delfino OrtaCOMPREHENSIVE METABOLIC [id number] 00:00:00* Test Item Value Reference Range Interpretation Comme nts GLUCOSE (test code = 2217) 74 MG/DL BUN (test code = 2208) 16 MG/DL CREATININE (test code = 2214) 0.96 MG/DL eGFR (2020 CKD-EPI) (test co de = 19010) 69 ML/MIN/1.73 CALC BUN/CREAT (test code = [...] = 2219) 13 U/L Delfino Schumacher AustinLIPID [id number] 00:00:00* Test Item Value Reference Range Interpretation Comme nts CHOLESTEROL (test code = 2210) 183 MG/DL TRIGLYCERIDES (test code = 2232) 69 MG/DL HDL CHOLESTEROL (test code = 2220) 93 MG/DL CALC LDL CHOL (test code = 2237) 75 MG/DL RISK RATIO LDL/HDL (test cod e = 2238) 0.81 RATIO Delfino OrtaCOMPREHENSIVE METABOLIC [id number] 00:00:00* Test Item Value Reference Range Interpretation Comme nts GLUCOSE (test code = 2217) 74 MG/DL BUN (test code = 2208) 16 MG/DL CREATININE (test code = 2214) 0.96 MG/DL eGFR (2020 CKD-EPI) (test co de = 68145) 69 ML/MIN/1.73 CALC BUN/CREAT (test code = [...] code = 2219) 13 U/L Delfino Schumacher KinmundyLIPID [id number] 00:00:00* Test Item Value Reference Range Interpretation Comme nts CHOLESTEROL (test code = 2210) 183 MG/DL TRIGLYCERIDES (test code = 2232) 69 MG/DL HDL CHOLESTEROL (test code = 2220) 93 MG/DL CALC LDL CHOL (test code = 2237) 75 MG/DL RISK RATIO LDL/HDL (test cod e = 2238) 0.81 RATIO Delfino OrtaCOMPREHENSIVE METABOLIC [id number] 00:00:00* Test Item Value Reference Range Interpretation Comme nts GLUCOSE (test code = 2217) 74 MG/DL BUN (test code = 2208) 16 MG/DL CREATININE (test code = 2214) 0.96 MG/DL eGFR (2020 CKD-EPI) (test co de = 52193) 69 ML/MIN/1.73 CALC BUN/CREAT (test code = [...] code = 2219) 13 U/L Delfino OrtaLIPID [id number] 00:00:00* Test Item Value Reference Range Interpretation Comme nts CHOLESTEROL (test code = 2210) 183 MG/DL TRIGLYCERIDES (test code = 2232) 69 MG/DL HDL CHOLESTEROL (test code = 2220) 93 MG/DL CALC LDL CHOL (test code = 2237) 75 MG/DL RISK RATIO LDL/HDL (test cod e = 2238) 0.81 RATIO Delfino Schumacher YouCOMPREHENSIVE METABOLIC [id number] 00:00:00* Test Item Value Reference Range Interpretation Comme nts GLUCOSE (test code = 2217) 74 MG/DL BUN (test code = 2208) 16 MG/DL CREATININE (test code = 2214) 0.96 MG/DL eGFR (2020 CKD-EPI) (test co de = 82412) 69 ML/MIN/1.73 CALC BUN/CREAT (test code = [...] = 2219) 13 U/L Delfino Schumacher AustinLIPID [id number] 00:00:00* Test Item Value Reference Range Interpretation Comme nts CHOLESTEROL (test code = 2210) 183 MG/DL TRIGLYCERIDES (test code = 2232) 69 MG/DL HDL CHOLESTEROL (test code = 2220) 93 MG/DL CALC LDL CHOL (test code = 2237) 75 MG/DL RISK RATIO LDL/HDL (test cod e = 2238) 0.81 RATIO Delfino Schumacher AustinCOMPREHENSIVE METABOLIC [id number] 00:00:00* Test Item Value Reference Range Interpretation Comme nts GLUCOSE (test code = 2217) 74 MG/DL BUN (test code = 2208) 16 MG/DL CREATININE (test code = 2214) 0.96 MG/DL eGFR (2020 CKD-EPI) (test co de = 70735) 69 ML/MIN/1.73 CALC BUN/CREAT (test code = [...] = 2219) 13 U/L Delfino Schumacher AustinLIPID [id number] 00:00:00* Test Item Value Reference Range Interpretation Comme nts CHOLESTEROL (test code = 2210) 183 MG/DL TRIGLYCERIDES (test code = 2232) 69 MG/DL HDL CHOLESTEROL (test code = 2220) 93 MG/DL CALC LDL CHOL (test code = 2237) 75 MG/DL RISK RATIO LDL/HDL (test cod e = 2238) 0.81 RATIO Delfino Schumacher AustinCOMPREHENSIVE METABOLIC [id number] 00:00:00* Test Item Value Reference Range Interpretation Comme nts GLUCOSE (test code = 2217) 74 MG/DL BUN (test code = 2208) 16 MG/DL CREATININE (test code = 2214) 0.96 MG/DL eGFR (2020 CKD-EPI) (test co de = 24610) 69 ML/MIN/1.73 CALC BUN/CREAT (test code = [...] = 2219) 13 U/L Delfino Schumacher AustinLIPID [id number] 00:00:00* Test Item Value Reference Range Interpretation Comme nts CHOLESTEROL (test code = 2210) 183 MG/DL TRIGLYCERIDES (test code = 2232) 69 MG/DL HDL CHOLESTEROL (test code = 2220) 93 MG/DL CALC LDL CHOL (test code = 2237) 75 MG/DL RISK RATIO LDL/HDL (test cod e = 2238) 0.81 RATIO Delfino OrtaCOMPREHENSIVE METABOLIC [id number] 00:00:00* Test Item Value Reference Range Interpretation Comme nts GLUCOSE (test code = 2217) 74 MG/DL BUN (test code = 2208) 16 MG/DL CREATININE (test code = 2214) 0.96 MG/DL eGFR (2020 CKD-EPI) (test co de = 41274) 69 ML/MIN/1.73 CALC BUN/CREAT (test code = [...] code = 2219) 13 U/L Delfino OrtaLIPID [id number] 00:00:00* Test Item Value Reference Range Interpretation Comme nts CHOLESTEROL (test code = 2210) 183 MG/DL TRIGLYCERIDES (test code = 2232) 69 MG/DL HDL CHOLESTEROL (test code = 2220) 93 MG/DL CALC LDL CHOL (test code = 2237) 75 MG/DL RISK RATIO LDL/HDL (test cod e = 2238) 0.81 RATIO Delfino OrtaCOMPREHENSIVE METABOLIC [id number] 00:00:00* Test Item Value Reference Range Interpretation Comme nts GLUCOSE (test code = 2217) 74 MG/DL BUN (test code = 2208) 16 MG/DL CREATININE (test code = 2214) 0.96 MG/DL eGFR (2020 CKD-EPI) (test co de = 04475) 69 ML/MIN/1.73 CALC BUN/CREAT (test code = [...] code = 2219) 13 U/L Delfino OrtaLIPID [id number] 00:00:00* Test Item Value Reference Range Interpretation Comme nts CHOLESTEROL (test code = 2210) 183 MG/DL TRIGLYCERIDES (test code = 2232) 69 MG/DL HDL CHOLESTEROL (test code = 2220) 93 MG/DL CALC LDL CHOL (test code = 2237) 75 MG/DL RISK RATIO LDL/HDL (test cod e = 2238) 0.81 RATIO Delfino OrtaCOMPREHENSIVE METABOLIC [id number] 00:00:00* Test Item Value Reference Range Interpretation Comme nts GLUCOSE (test code = 2217) 74 MG/DL BUN (test code = 2208) 16 MG/DL CREATININE (test code = 2214) 0.96 MG/DL eGFR (2020 CKD-EPI) (test co de = 36258) 69 ML/MIN/1.73 CALC BUN/CREAT (test code = [...] code = 2219) 13 U/L Delfino OrtaLIPID [id number] 00:00:00* Test Item Value Reference Range Interpretation Comme nts CHOLESTEROL (test code = 2210) 183 MG/DL TRIGLYCERIDES (test code = 2232) 69 MG/DL HDL CHOLESTEROL (test code = 2220) 93 MG/DL CALC LDL CHOL (test code = 2237) 75 MG/DL RISK RATIO LDL/HDL (test cod e = 2238) 0.81 RATIO Delfino Schumacher AustinCOMPREHENSIVE METABOLIC [id number] 00:00:00* Test Item Value Reference Range Interpretation Comme nts GLUCOSE (test code = 2217) 74 MG/DL BUN (test code = 2208) 16 MG/DL CREATININE (test code = 2214) 0.96 MG/DL eGFR (2020 CKD-EPI) (test co de = 32592) 69 ML/MIN/1.73 CALC BUN/CREAT (test code = [...] code = 2219) 13 U/L Delfino OrtaLIPID [id number] 00:00:00* Test Item Value Reference Range Interpretation Comme nts CHOLESTEROL (test code = 2210) 183 MG/DL TRIGLYCERIDES (test code = 2232) 69 MG/DL HDL CHOLESTEROL (test code = 2220) 93 MG/DL CALC LDL CHOL (test code = 2237) 75 MG/DL RISK RATIO LDL/HDL (test cod e = 2238) 0.81 RATIO Delfino Schumacher AustinCOMPREHENSIVE METABOLIC [id number] 00:00:00* Test Item Value Reference Range Interpretation Comme nts GLUCOSE (test code = 2217) 74 MG/DL BUN (test code = 2208) 16 MG/DL CREATININE (test code = 2214) 0.96 MG/DL eGFR (2020 CKD-EPI) (test co de = 29127) 69 ML/MIN/1.73 CALC BUN/CREAT (test code = [...] code = 2219) 13 U/L Delfino Schumacher KinmundyLIPID [id number] 00:00:00* Test Item Value Reference Range Interpretation Comme nts CHOLESTEROL (test code = 2210) 183 MG/DL TRIGLYCERIDES (test code = 2232) 69 MG/DL HDL CHOLESTEROL (test code = 2220) 93 MG/DL CALC LDL CHOL (test code = 2237) 75 MG/DL RISK RATIO LDL/HDL (test cod e = 2238) 0.81 RATIO Delfino Schumacher YouCOMPREHENSIVE METABOLIC [id number] 00:00:00* Test Item Value Reference Range Interpretation Comme nts GLUCOSE (test code = 2217) 74 MG/DL BUN (test code = 2208) 16 MG/DL CREATININE (test code = 2214) 0.96 MG/DL eGFR (2020 CKD-EPI) (test co de = 65841) 69 ML/MIN/1.73 CALC BUN/CREAT (test code = [...] = 2219) 13 U/L Delfino Schumacher AustinLIPID [id number] 00:00:00* Test Item Value Reference Range Interpretation Comme nts CHOLESTEROL (test code = 2210) 183 MG/DL TRIGLYCERIDES (test code = 2232) 69 MG/DL HDL CHOLESTEROL (test code = 2220) 93 MG/DL CALC LDL CHOL (test code = 2237) 75 MG/DL RISK RATIO LDL/HDL (test cod e = 2238) 0.81 RATIO Delfino OrtaCOMPREHENSIVE METABOLIC [id number] 00:00:00* Test Item Value Reference Range Interpretation Comme nts GLUCOSE (test code = 2217) 74 MG/DL BUN (test code = 2208) 16 MG/DL CREATININE (test code = 2214) 0.96 MG/DL eGFR (2020 CKD-EPI) (test co de = 41501) 69 ML/MIN/1.73 CALC BUN/CREAT (test code = [...] = 2219) 13 U/L Delfino Schumacher AustinLIPID [id number] 00:00:00* Test Item Value Reference Range Interpretation Comme nts CHOLESTEROL (test code = 2210) 183 MG/DL TRIGLYCERIDES (test code = 2232) 69 MG/DL HDL CHOLESTEROL (test code = 2220) 93 MG/DL CALC LDL CHOL (test code = 2237) 75 MG/DL RISK RATIO LDL/HDL (test cod e = 2238) 0.81 RATIO Delfino OrtaCOMPREHENSIVE METABOLIC [id number] 00:00:00* Test Item Value Reference Range Interpretation Comme nts GLUCOSE (test code = 2217) 74 MG/DL BUN (test code = 2208) 16 MG/DL CREATININE (test code = 2214) 0.96 MG/DL eGFR (2020 CKD-EPI) (test co de = 36030) 69 ML/MIN/1.73 CALC BUN/CREAT (test code = [...] = 2219) 13 U/L Delfino Schumacher AustinLIPID [id number] 00:00:00* Test Item Value Reference Range Interpretation Comme nts CHOLESTEROL (test code = 2210) 183 MG/DL TRIGLYCERIDES (test code = 2232) 69 MG/DL HDL CHOLESTEROL (test code = 2220) 93 MG/DL CALC LDL CHOL (test code = 2237) 75 MG/DL RISK RATIO LDL/HDL (test cod e = 2238) 0.81 RATIO Delfino OrtaCOMPREHENSIVE METABOLIC [id number] 00:00:00* Test Item Value Reference Range Interpretation Comme nts GLUCOSE (test code = 2217) 74 MG/DL BUN (test code = 2208) 16 MG/DL CREATININE (test code = 2214) 0.96 MG/DL eGFR (2020 CKD-EPI) (test co de = 30175) 69 ML/MIN/1.73 CALC BUN/CREAT (test code = [...] (test code = 2219) 13 U/L Delfino OrtaVIVINIALL, [id number] 09:14:59SPECIMEN NUMBER: [id number] CULTURE, URINE SPECIMEN NUMBER: [id number] SPECIMEN COMMENT: URINE SOURCE: URINE REPORT STATUS: FINAL FINAL REPORT: 07/05/2021 >100,000 CFU/ML MIXED MICROBIAL POPULATION PRESENT, NO PREDOMINATING ORGANISMS;PROBABLE CONTAMINANTS.CULTURE, [id number] 00:00:00* Test Item Value Reference Range Interpretation Comme nts CULTURE, URINE (test code = 31372) SPECIMEN NUMBER: [id number] CULTURE, [id number] 00:00:00* Test Item Value Reference Range Interpretation Comme nts CULTURE, URINE (test code = 59115) SPECIMEN NUMBER: [id number] CULTURE, [id number] 00:00:00* Test Item Value Reference Range Interpretation Comme nts CULTURE, URINE (test code = 42645) SPECIMEN NUMBER: [id number] CULTURE, [id number] 00:00:00* Test Item Value Reference Range Interpretation Comme nts CULTURE, URINE (test code = 05054) SPECIMEN NUMBER: [id number] Delfino OrtaCULTURE, [id number] 00:00:00* Test Item Value Reference Range Interpretation Comme nts CULTURE, URINE (test code = 60031) SPECIMEN NUMBER: [id number] Delfino Cedeño, [id number] 00:00:00* Test Item Value Reference Range Interpretation Comme nts CULTURE, URINE (test code = 13949) SPECIMEN NUMBER: [id number] Delfino Cedeño, [id number] 00:00:00* Test Item Value Reference Range Interpretation Comme nts CULTURE, URINE (test code = 81466) SPECIMEN NUMBER: [id number] Delfino Cedeño, [id number] 00:00:00* Test Item Value Reference Range Interpretation Comme nts CULTURE, URINE (test code = 31481) SPECIMEN NUMBER: [id number] Delfino Cedeño, [id number] 00:00:00* Test Item Value Reference Range Interpretation Comme nts CULTURE, URINE (test code = 80392) SPECIMEN NUMBER: [id number] Delfino Cedeño, [id number] 00:00:00* Test Item Value Reference Range Interpretation Comme nts CULTURE, URINE (test code = 85608) SPECIMEN NUMBER: [id number] Delfino Cedeño, [id number] 00:00:00* Test Item Value Reference Range Interpretation Comme nts CULTURE, URINE (test code = 18181) SPECIMEN NUMBER: [id number] Delfino Cedeño, [id number] 00:00:00* Test Item Value Reference Range Interpretation Comme nts CULTURE, URINE (test code = 11268) SPECIMEN NUMBER: [id number] Delfino Cedeño, [id number] 00:00:00* Test Item Value Reference Range Interpretation Comme nts CULTURE, URINE (test code = 33572) SPECIMEN NUMBER: [id number] Delfino Cedeño, [id number] 00:00:00* Test Item Value Reference Range Interpretation Comme nts CULTURE, URINE (test code = 13542) SPECIMEN NUMBER: [id number] Delfino Cedeño, [id number] 00:00:00* Test Item Value Reference Range Interpretation Comme nts CULTURE, URINE (test code = 48814) SPECIMEN NUMBER: [id number] Delfino SarmientoLTURE, [id number] 00:00:00* Test Item Value Reference Range Interpretation Comme nts CULTURE, URINE (test code = 85167) SPECIMEN NUMBER: [id number] Delfino Cedeño [id number] 00:00:00* Test Item Value Reference Range Interpretation Comme nts CULTURE, URINE (test code = 70996) SPECIMEN NUMBER: [id number] Delfino Cedeño [id number] 00:00:00* Test Item Value Reference Range Interpretation Comme nts CULTURE, URINE (test code = 51646) SPECIMEN NUMBER: [id number] Delfino Cedeño [id number] 00:00:00* Test Item Value Reference Range Interpretation Comme nts CULTURE, URINE (test code = 86304) SPECIMEN NUMBER: [id number] Delfino Cedeño [id number] 00:00:00* Test Item Value Reference Range Interpretation Comme nts CULTURE, URINE (test code = 87248) SPECIMEN NUMBER: [id number] Delfino Cedeño [id number] 00:00:00* Test Item Value Reference Range Interpretation Comme nts CULTURE, URINE (test code = 86471) SPECIMEN NUMBER: [id number] Delfino Cedeño [id number] 00:00:00* Test Item Value Reference Range Interpretation Comme nts CULTURE, URINE (test code = 01482) SPECIMEN NUMBER: [id number] Delfino Cedeño [id number] 00:00:00* Test Item Value Reference Range Interpretation Comme nts CULTURE, URINE (test code = 25098) SPECIMEN NUMBER: [id number] Delfino Cedeño, [id number] 00:00:00* Test Item Value Reference Range Interpretation Comme nts CULTURE, URINE (test code = 20829) SPECIMEN NUMBER: [id number] Delfino SarmientoLTNIALL, [id number] 00:00:00* Test Item Value Reference Range Interpretation Comme nts CULTURE, URINE (test code = 66746) SPECIMEN NUMBER: [id number] Delfino Cedeño, [id number] 00:00:00* Test Item Value Reference Range Interpretation Comme nts CULTURE, URINE (test code = 34877) SPECIMEN NUMBER: [id number] Delfino Cedeño, [id number] 00:00:00* Test Item Value Reference Range Interpretation Comme nts CULTURE, URINE (test code = 05487) SPECIMEN NUMBER: [id number] Delfino Cedeño, [id number] 00:00:00* Test Item Value Reference Range Interpretation Comme nts CULTURE, URINE (test code = 92907) SPECIMEN NUMBER: [id number] Delfino Cedeño, [id number] 00:00:00* Test Item Value Reference Range Interpretation Comme nts CULTURE, URINE (test code = 09455) SPECIMEN NUMBER: [id number] Delfino Cedeño, [id number] 00:00:00* Test Item Value Reference Range Interpretation Comme nts CULTURE, URINE (test code = 36508) SPECIMEN NUMBER: [id number] Delfino Cedeño, [id number] 00:00:00* Test Item Value Reference Range Interpretation Comme nts CULTURE, URINE (test code = 50323) SPECIMEN NUMBER: [id number] Delfino Cedeño, [id number] 00:00:00* Test Item Value Reference Range Interpretation Comme nts CULTURE, URINE (test code = 38742) SPECIMEN NUMBER: [id number] Delfino Cedeño, [id number] 00:00:00* Test Item Value Reference Range Interpretation Comme nts CULTURE, URINE (test code = 95296) SPECIMEN NUMBER: [id number] Delfino Cedeño, [id number] 00:00:00* Test Item Value Reference Range Interpretation Comme nts CULTURE, URINE (test code = 57567) SPECIMEN NUMBER: [id number] Delfino SarmientoLTNIALL, [id number] 00:00:00* Test Item Value Reference Range Interpretation Comme nts CULTURE, URINE (test code = 99508) SPECIMEN NUMBER: [id number] Delfino SarmientoLTNIALL, [id number] 00:00:00* Test Item Value Reference Range Interpretation Comme nts CULTURE, URINE (test code = 17414) SPECIMEN NUMBER: [id number] Delfino Cedeño, [id number] 00:00:00* Test Item Value Reference Range Interpretation Comme nts CULTURE, URINE (test code = 00361) SPECIMEN NUMBER: [id number] Delfino Cedeño, [id number] 00:00:00* Test Item Value Reference Range Interpretation Comme nts CULTURE, URINE (test code = 26467) SPECIMEN NUMBER: [id number] VAGINAL PATHOGENS DNA [id number] 15:31:31* Test Item Value Reference Range Interpretation Comme nts DIANNA SPECIES (test code = 50751) NEGATIVE NEGATIVE G. VAGINALIS (test code = 71620) NEGATIVE NEGATIVE T. VAGINALIS (test code = 74731) NEGATIVE NEGATIVE UNLESS OTHERWISE INDICATED, ALL TESTING PERFORMED [facility] [address] [place] [id number] THREAD PULLING MACHINE ATTENDANT: ALYSSIA FRASER M.D. CLIA NUMBER [id number] [facility] [place] [id number] VAGINAL PATHOGENS DNA [id number] 00:00:00* Test Item Value Reference Range Interpretation Comme nts DIANNA SPECIES (test code = 41349) NEGATIVE G. VAGINALIS (test code = 78143) NEGATIVE T. VAGINALIS (test code = 49892) NEGATIVE VAGINAL PATHOGENS DNA [id number] 00:00:00* Test Item Value Reference Range Interpretation Comme nts DIANNA SPECIES (test code = 07858) NEGATIVE G. VAGINALIS (test code = 89141) NEGATIVE T. VAGINALIS (test code = 72286) NEGATIVE VAGINAL PATHOGENS DNA [id number] 00:00:00* Test Item Value Reference Range Interpretation Comme nts DIANNA SPECIES (test code = 90255) NEGATIVE G. VAGINALIS (test code = 73918) NEGATIVE T. VAGINALIS (test code = 38614) NEGATIVE VAGINAL PATHOGENS DNA [id number] 00:00:00* Test Item Value Reference Range Interpretation Comme nts DIANNA SPECIES (test code = 67913) NEGATIVE G. VAGINALIS (test code = 05739) NEGATIVE T. VAGINALIS (test code = 92931) NEGATIVE Delfino Schumacher AustinVAGINAL PATHOGENS DNA [id number] 00:00:00* Test Item Value Reference Range Interpretation Comme nts DIANNA SPECIES (test code = 10134) NEGATIVE G. VAGINALIS (test code = 72197) NEGATIVE T. VAGINALIS (test code = 16483) NEGATIVE Delfino F AustinVAGINAL PATHOGENS DNA [id number] 00:00:00* Test Item Value Reference Range Interpretation Comme nts DIANNA SPECIES (test code = 70617) NEGATIVE G. VAGINALIS (test code = 79087) NEGATIVE T. VAGINALIS (test code = 94624) NEGATIVE Delfino F AustinVAGINAL PATHOGENS DNA [id number] 00:00:00* Test Item Value Reference Range Interpretation Comme nts DIANNA SPECIES (test code = 53303) NEGATIVE G. VAGINALIS (test code = 23780) NEGATIVE T. VAGINALIS (test code = 71360) NEGATIVE Delfino F AustinVAGINAL PATHOGENS DNA [id number] 00:00:00* Test Item Value Reference Range Interpretation Comme nts DIANNA SPECIES (test code = 80591) NEGATIVE G. VAGINALIS (test code = 76671) NEGATIVE T. VAGINALIS (test code = 86370) NEGATIVE Delfino F AustinVAGINAL PATHOGENS DNA [id number] 00:00:00* Test Item Value Reference Range Interpretation Comme nts DIANNA SPECIES (test code = 76843) NEGATIVE G. VAGINALIS (test code = 75838) NEGATIVE T. VAGINALIS (test code = 14100) NEGATIVE Delfino F AustinVAGINAL PATHOGENS DNA [id number] 00:00:00* Test Item Value Reference Range Interpretation Comme nts DIANNA SPECIES (test code = 22871) NEGATIVE G. VAGINALIS (test code = 15343) NEGATIVE T. VAGINALIS (test code = 85605) NEGATIVE Delfino F AustinVAGINAL PATHOGENS DNA [id number] 00:00:00* Test Item Value Reference Range Interpretation Comme nts DIANNA SPECIES (test code = 30695) NEGATIVE G. VAGINALIS (test code = 27091) NEGATIVE T. VAGINALIS (test code = 07718) NEGATIVE Delfino F AustinVAGINAL PATHOGENS DNA [id number] 00:00:00* Test Item Value Reference Range Interpretation Comme nts DIANNA SPECIES (test code = 11996) NEGATIVE G. VAGINALIS (test code = 18927) NEGATIVE T. VAGINALIS (test code = 07773) NEGATIVE Delfino F AustinVAGINAL PATHOGENS DNA [id number] 00:00:00* Test Item Value Reference Range Interpretation Comme nts DIANNA SPECIES (test code = ) NEGATIVE G. VAGINALIS (test code = 57161) NEGATIVE T. VAGINALIS (test code = 22416) NEGATIVE Delfino F AustinVAGINAL PATHOGENS DNA [id number] 00:00:00* Test Item Value Reference Range Interpretation Comme nts DIANNA SPECIES (test code = 90196) NEGATIVE G. VAGINALIS (test code = 80338) NEGATIVE T. VAGINALIS (test code = 70591) NEGATIVE Delfino F AustinVAGINAL PATHOGENS DNA [id number] 00:00:00* Test Item Value Reference Range Interpretation Comme nts DIANNA SPECIES (test code = 33863) NEGATIVE G. VAGINALIS (test code = 93328) NEGATIVE T. VAGINALIS (test code = 02114) NEGATIVE Delfino F AustinVAGINAL PATHOGENS DNA [id number] 00:00:00* Test Item Value Reference Range Interpretation Comme nts DIANNA SPECIES (test code = 06016) NEGATIVE G. VAGINALIS (test code = 36659) NEGATIVE T. VAGINALIS (test code = 73994) NEGATIVE Delfino F AustinVAGINAL PATHOGENS DNA [id number] 00:00:00* Test Item Value Reference Range Interpretation Comme nts DIANNA SPECIES (test code = 70776) NEGATIVE G. VAGINALIS (test code = 82767) NEGATIVE T. VAGINALIS (test code = 53451) NEGATIVE Delfino F AustinVAGINAL PATHOGENS DNA [id number] 00:00:00* Test Item Value Reference Range Interpretation Comme nts DIANNA SPECIES (test code = 04934) NEGATIVE G. VAGINALIS (test code = 47557) NEGATIVE T. VAGINALIS (test code = 02344) NEGATIVE Delfino F AustinVAGINAL PATHOGENS DNA [id number] 00:00:00* Test Item Value Reference Range Interpretation Comme nts DIANNA SPECIES (test code = 02118) NEGATIVE G. VAGINALIS (test code = 74442) NEGATIVE T. VAGINALIS (test code = 60405) NEGATIVE Delfino F AustinVAGINAL PATHOGENS DNA [id number] 00:00:00* Test Item Value Reference Range Interpretation Comme nts DIANNA SPECIES (test code = 19292) NEGATIVE G. VAGINALIS (test code = 96848) NEGATIVE T. VAGINALIS (test code = 79701) NEGATIVE Delfino F AustinVAGINAL PATHOGENS DNA [id number] 00:00:00* Test Item Value Reference Range Interpretation Comme nts DIANNA SPECIES (test code = ) NEGATIVE G. VAGINALIS (test code = 47793) NEGATIVE T. VAGINALIS (test code = 12714) NEGATIVE Delfino F AustinVAGINAL PATHOGENS DNA [id number] 00:00:00* Test Item Value Reference Range Interpretation Comme nts DIANNA SPECIES (test code = 62440) NEGATIVE G. VAGINALIS (test code = 20763) NEGATIVE T. VAGINALIS (test code = 21638) NEGATIVE Delfino F AustinVAGINAL PATHOGENS DNA [id number] 00:00:00* Test Item Value Reference Range Interpretation Comme nts DIANNA SPECIES (test code = 83095) NEGATIVE G. VAGINALIS (test code = 44124) NEGATIVE T. VAGINALIS (test code = 83567) NEGATIVE Delfino F AustinVAGINAL PATHOGENS DNA [id number] 00:00:00* Test Item Value Reference Range Interpretation Comme nts DIANNA SPECIES (test code = 79553) NEGATIVE G. VAGINALIS (test code = 49868) NEGATIVE T. VAGINALIS (test code = 77609) NEGATIVE Delfino F AustinVAGINAL PATHOGENS DNA [id number] 00:00:00* Test Item Value Reference Range Interpretation Comme nts DIANNA SPECIES (test code = ) NEGATIVE G. VAGINALIS (test code = 69180) NEGATIVE T. VAGINALIS (test code = 28559) NEGATIVE Delfino F AustinVAGINAL PATHOGENS DNA [id number] 00:00:00* Test Item Value Reference Range Interpretation Comme nts DIANNA SPECIES (test code = 88124) NEGATIVE G. VAGINALIS (test code = 00310) NEGATIVE T. VAGINALIS (test code = 69593) NEGATIVE Delfino F AustinVAGINAL PATHOGENS DNA [id number] 00:00:00* Test Item Value Reference Range Interpretation Comme nts DIANNA SPECIES (test code = 78630) NEGATIVE G. VAGINALIS (test code = 95957) NEGATIVE T. VAGINALIS (test code = 20037) NEGATIVE Delfino F AustinVAGINAL PATHOGENS DNA [id number] 00:00:00* Test Item Value Reference Range Interpretation Comme nts DIANNA SPECIES (test code = 51044) NEGATIVE G. VAGINALIS (test code = 38052) NEGATIVE T. VAGINALIS (test code = ) NEGATIVE Delfino F AustinVAGINAL PATHOGENS DNA [id number] 00:00:00* Test Item Value Reference Range Interpretation Comme nts DIANNA SPECIES (test code = 24415) NEGATIVE G. VAGINALIS (test code = 24922) NEGATIVE T. VAGINALIS (test code = 01080) NEGATIVE Delfino F AustinVAGINAL PATHOGENS DNA [id number] 00:00:00* Test Item Value Reference Range Interpretation Comme nts DIANNA SPECIES (test code = 06539) NEGATIVE G. VAGINALIS (test code = 78307) NEGATIVE T. VAGINALIS (test code = 11280) NEGATIVE Delfino F AustinVAGINAL PATHOGENS DNA [id number] 00:00:00* Test Item Value Reference Range Interpretation Comme nts DIANNA SPECIES (test code = 00731) NEGATIVE G. VAGINALIS (test code = 16932) NEGATIVE T. VAGINALIS (test code = 47845) NEGATIVE Delfino F AustinVAGINAL PATHOGENS DNA [id number] 00:00:00* Test Item Value Reference Range Interpretation Comme nts DIANNA SPECIES (test code = 26492) NEGATIVE G. VAGINALIS (test code = 93302) NEGATIVE T. VAGINALIS (test code = 48912) NEGATIVE Delfino F AustinVAGINAL PATHOGENS DNA [id number] 00:00:00* Test Item Value Reference Range Interpretation Comme nts DIANNA SPECIES (test code = ) NEGATIVE G. VAGINALIS (test code = 02929) NEGATIVE T. VAGINALIS (test code = 99608) NEGATIVE Delfino F AustinVAGINAL PATHOGENS DNA [id number] 00:00:00* Test Item Value Reference Range Interpretation Comme nts DIANNA SPECIES (test code = 54284) NEGATIVE G. VAGINALIS (test code = 94092) NEGATIVE T. VAGINALIS (test code = 59860) NEGATIVE Delfino F AustinVAGINAL PATHOGENS DNA [id number] 00:00:00* Test Item Value Reference Range Interpretation Comme nts DIANNA SPECIES (test code = 96950) NEGATIVE G. VAGINALIS (test code = 37957) NEGATIVE T. VAGINALIS (test code = 98063) NEGATIVE Delfino F AustinVAGINAL PATHOGENS DNA [id number] 00:00:00* Test Item Value Reference Range Interpretation Comme nts DIANNA SPECIES (test code = 45918) NEGATIVE G. VAGINALIS (test code = 56357) NEGATIVE T. VAGINALIS (test code = 56295) NEGATIVE Delfino Schumacher AustinVAGINAL PATHOGENS DNA [id number] 00:00:00* Test Item Value Reference Range Interpretation Comme nts DIANNA SPECIES (test code = ) NEGATIVE G. VAGINALIS (test code = 39938) NEGATIVE T. VAGINALIS (test code = 89439) NEGATIVE Delfino Schumacher AustinVAGINAL PATHOGENS DNA [id number] 00:00:00* Test Item Value Reference Range Interpretation Comme nts DIANNA SPECIES (test code = ) NEGATIVE G. VAGINALIS (test code = 84686) NEGATIVE T. VAGINALIS (test code = 49928) NEGATIVE CULTURE, [id number] 12:43:02SPECIMEN NUMBER: [id number] CULTURE, URINE SPECIMEN NUMBER: [id number] SPECIMEN COMMENT: URINE SOURCE: URINE REPORT STATUS: FINAL ISOLATE NUMBER 1: ORGANISM: 04/28/2021 10-50,000 CFU/ML ENTEROCOCCUS SPE CIES (GROUP D) IDENTIFICATION: 04/29/2021 ENTEROCOCCUS SPECIES (GROUP D) ENTEROCOCCUS SP. AMPICILLIN SENSITIVE <=2CIPROFLOXACIN SENSITIVE <=1LEVOFLOXACIN SENSITIVE 1NITROFURANTOIN SENSITIVE <=32TETRACYCLINE RESISTANT >8VANCOMYCIN SENSITIVE 2 NOTE: NUMBERS DISPLAYED REPRESENT MINIMUM INHIBITORY CONCENTRATION (CHAYO) WHICH IS EXPRESSED IN MCG/ML.CULTURE, URINE 2021-04-30 00:00:00* Test Item Value Reference Range Interpretation Comme nts CULTURE, URINE (test code = 72278) SPECIMEN NUMBER: [id number] CULTURE, [id number] 00:00:00* Test Item Value Reference Range Interpretation Comme nts CULTURE, URINE (test code = 87894) SPECIMEN NUMBER: [id number] CULTURE, [id number] 00:00:00* Test Item Value Reference Range Interpretation Comme nts CULTURE, URINE (test code = 13182) SPECIMEN NUMBER: [id number] CULTURE, [id number] 00:00:00* Test Item Value Reference Range Interpretation Comme nts CULTURE, URINE (test code = 17668) SPECIMEN NUMBER: [id number] Delfino OrtaCULTURE, [id number] 00:00:00* Test Item Value Reference Range Interpretation Comme nts CULTURE, URINE (test code = 26376) SPECIMEN NUMBER: [id number] Delfino Cedeño [id number] 00:00:00* Test Item Value Reference Range Interpretation Comme nts CULTURE, URINE (test code = 21472) SPECIMEN NUMBER: [id number] Delfino Cedeño [id number] 00:00:00* Test Item Value Reference Range Interpretation Comme nts CULTURE, URINE (test code = 28486) SPECIMEN NUMBER: [id number] Delfino Cedeño, [id number] 00:00:00* Test Item Value Reference Range Interpretation Comme nts CULTURE, URINE (test code = 20935) SPECIMEN NUMBER: [id number] Delfino Cedeño, [id number] 00:00:00* Test Item Value Reference Range Interpretation Comme nts CULTURE, URINE (test code = 93279) SPECIMEN NUMBER: [id number] Delfino Cedeño, [id number] 00:00:00* Test Item Value Reference Range Interpretation Comme nts CULTURE, URINE (test code = 08583) SPECIMEN NUMBER: [id number] Delfino Cedeño, [id number] 00:00:00* Test Item Value Reference Range Interpretation Comme nts CULTURE, URINE (test code = 96023) SPECIMEN NUMBER: [id number] Delfino Cedeño, [id number] 00:00:00* Test Item Value Reference Range Interpretation Comme nts CULTURE, URINE (test code = 63858) SPECIMEN NUMBER: [id number] Delfino Cedeño, [id number] 00:00:00* Test Item Value Reference Range Interpretation Comme nts CULTURE, URINE (test code = 95267) SPECIMEN NUMBER: [id number] Delfino Cedeño, [id number] 00:00:00* Test Item Value Reference Range Interpretation Comme nts CULTURE, URINE (test code = 89900) SPECIMEN NUMBER: [id number] Delfino Cedeño, [id number] 00:00:00* Test Item Value Reference Range Interpretation Comme nts CULTURE, URINE (test code = 74090) SPECIMEN NUMBER: [id number] Delfino Cedeño, [id number] 00:00:00* Test Item Value Reference Range Interpretation Comme nts CULTURE, URINE (test code = 25253) SPECIMEN NUMBER: [id number] Delfino Cedeño, [id number] 00:00:00* Test Item Value Reference Range Interpretation Comme nts CULTURE, URINE (test code = 40765) SPECIMEN NUMBER: [id number] Delfino Cedeño [id number] 00:00:00* Test Item Value Reference Range Interpretation Comme nts CULTURE, URINE (test code = 24617) SPECIMEN NUMBER: [id number] Delfino Cedeño [id number] 00:00:00* Test Item Value Reference Range Interpretation Comme nts CULTURE, URINE (test code = 83524) SPECIMEN NUMBER: [id number] Delfino Cedeño, [id number] 00:00:00* Test Item Value Reference Range Interpretation Comme nts CULTURE, URINE (test code = 31272) SPECIMEN NUMBER: [id number] Delfino Cedeño, [id number] 00:00:00* Test Item Value Reference Range Interpretation Comme nts CULTURE, URINE (test code = 28623) SPECIMEN NUMBER: [id number] Delfino Cedeño, [id number] 00:00:00* Test Item Value Reference Range Interpretation Comme nts CULTURE, URINE (test code = 49912) SPECIMEN NUMBER: [id number] Delfino Cedeño, [id number] 00:00:00* Test Item Value Reference Range Interpretation Comme nts CULTURE, URINE (test code = 54036) SPECIMEN NUMBER: [id number] Delfino Cedeño, [id number] 00:00:00* Test Item Value Reference Range Interpretation Comme nts CULTURE, URINE (test code = 75323) SPECIMEN NUMBER: [id number] Delfino Cedeño, [id number] 00:00:00* Test Item Value Reference Range Interpretation Comme nts CULTURE, URINE (test code = 81697) SPECIMEN NUMBER: [id number] Delfino Cedeño, [id number] 00:00:00* Test Item Value Reference Range Interpretation Comme nts CULTURE, URINE (test code = 99873) SPECIMEN NUMBER: [id number] Delfino Cedeño, [id number] 00:00:00* Test Item Value Reference Range Interpretation Comme nts CULTURE, URINE (test code = 70096) SPECIMEN NUMBER: [id number] Delfino Cedeño [id number] 00:00:00* Test Item Value Reference Range Interpretation Comme nts CULTURE, URINE (test code = 74451) SPECIMEN NUMBER: [id number] Delfino Cedeño, [id number] 00:00:00* Test Item Value Reference Range Interpretation Comme nts CULTURE, URINE (test code = 29570) SPECIMEN NUMBER: [id number] Delfino Cedeño, [id number] 00:00:00* Test Item Value Reference Range Interpretation Comme nts CULTURE, URINE (test code = 90493) SPECIMEN NUMBER: [id number] Delfino Cedeño, [id number] 00:00:00* Test Item Value Reference Range Interpretation Comme nts CULTURE, URINE (test code = 28501) SPECIMEN NUMBER: [id number] Delfino Cedeño, [id number] 00:00:00* Test Item Value Reference Range Interpretation Comme nts CULTURE, URINE (test code = 49066) SPECIMEN NUMBER: [id number] Delfino Cedeño, [id number] 00:00:00* Test Item Value Reference Range Interpretation Comme nts CULTURE, URINE (test code = 53129) SPECIMEN NUMBER: [id number] Delfino Cedeño, [id number] 00:00:00* Test Item Value Reference Range Interpretation Comme nts CULTURE, URINE (test code = 16717) SPECIMEN NUMBER: [id number] Delfino Cedeño, [id number] 00:00:00* Test Item Value Reference Range Interpretation Comme nts CULTURE, URINE (test code = 77033) SPECIMEN NUMBER: [id number] Delfino Cedeño, [id number] 00:00:00* Test Item Value Reference Range Interpretation Comme nts CULTURE, URINE (test code = 99390) SPECIMEN NUMBER: [id number] Delfino Cedeño, [id number] 00:00:00* Test Item Value Reference Range Interpretation Comme nts CULTURE, URINE (test code = 71749) SPECIMEN NUMBER: [id number] Delfino Cedeño, [id number] 00:00:00* Test Item Value Reference Range Interpretation Comme nts CULTURE, URINE (test code = 14265) SPECIMEN NUMBER: [id number] URINALYSIS WITH [id number] 07:51:12* Test Item Value Reference Range Interpretation [...] code = 1510) 0.2 MG/DL See_Comment [Automated [employer]] The system which generated this result [...] 0-5 A EPITHELIAL CELLS (test code = 55769) 0-5 /HPF 0-10 BACTERIA (test code = 1515) 3+ NONE SEEN A CASTS, HYALINE (test code = 1517) TRACE NONE-TRACE UNLESS OTHERWISE INDICATED, ALL TEST[facility] 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 CLIA NUMBER [id number] [place]. [id number] URINALYSIS WITH [id number] 00:00:00* Test Item Value Reference Range Interpretation [...] >50 /HPF EPITHELIAL CELLS (test code = 84588) 0-5 /HPF BACTERIA (test code = 1515) 3+ CASTS, HYALINE (test code = 1517) TRACE URINALYSIS WITH [id number] 00:00:00* Test Item Value Reference Range Interpretation [...] >50 /HPF EPITHELIAL CELLS (test code = 57726) 0-5 /HPF BACTERIA (test code = 1515) 3+ CASTS, HYALINE (test code = 1517) TRACE URINALYSIS WITH [id number] 00:00:00* Test Item Value Reference Range Interpretation [...] >50 /HPF EPITHELIAL CELLS (test code = 96387) 0-5 /HPF BACTERIA (test code = 1515) 3+ CASTS, HYALINE (test code = 1517) TRACE URINALYSIS WITH [id number] 00:00:00* Test Item Value Reference Range Interpretation [...] >50 /HPF EPITHELIAL CELLS (test code = 33725) 0-5 /HPF BACTERIA (test code = 1515) 3+ CASTS, HYALINE (test code = 1517) TRACE URINALYSIS WITH [id number] 00:00:00* Test Item Value Reference Range Interpretation [...] >50 /HPF EPITHELIAL CELLS (test code = 58056) 0-5 /HPF BACTERIA (test code = 1515) 3+ CASTS, HYALINE (test code = 1517) TONY Schumacher AustinURINALYSIS WITH [id number] 00:00:00* Test Item Value Reference Range Interpretation [...] >50 /HPF EPITHELIAL CELLS (test code = 37329) 0-5 /HPF BACTERIA (test code = 1515) 3+ CASTS, HYALINE (test code = 1517) TONY Schumacher AustinURINALYSIS WITH [id number] 00:00:00* Test Item Value Reference Range Interpretation [...] >50 /HPF EPITHELIAL CELLS (test code = 71918) 0-5 /HPF BACTERIA (test code = 1515) 3+ CASTS, HYALINE (test code = 1517) TONY Schumacher AustinURINALYSIS WITH [id number] 00:00:00* Test Item Value Reference Range Interpretation [...] >50 /HPF EPITHELIAL CELLS (test code = 75004) 0-5 /HPF BACTERIA (test code = 1515) 3+ CASTS, HYALINE (test code = 1517) TONY Schumacher AustinURINALYSIS WITH [id number] 00:00:00* Test Item Value Reference Range Interpretation [...] >50 /HPF EPITHELIAL CELLS (test code = 83368) 0-5 /HPF BACTERIA (test code = 1515) 3+ CASTS, HYALINE (test code = 1517) TONY Schumacher AustinURINALYSIS WITH [id number] 00:00:00* Test Item Value Reference Range Interpretation [...] >50 /HPF EPITHELIAL CELLS (test code = 52497) 0-5 /HPF BACTERIA (test code = 1515) 3+ CASTS, HYALINE (test code = 1517) TONY Schumacher AustinURINALYSIS WITH [id number] 00:00:00* Test Item Value Reference Range Interpretation [...] >50 /HPF EPITHELIAL CELLS (test code = 45128) 0-5 /HPF BACTERIA (test code = 1515) 3+ CASTS, HYALINE (test code = 1517) TRACE Delfino Schumacher AustinURINALYSIS WITH [id number] 00:00:00* Test Item Value Reference Range Interpretation [...] >50 /HPF EPITHELIAL CELLS (test code = 81470) 0-5 /HPF BACTERIA (test code = 1515) 3+ CASTS, HYALINE (test code = 1517) TONY Schumacher AustinURINALYSIS WITH [id number] 00:00:00* Test Item Value Reference Range Interpretation [...] >50 /HPF EPITHELIAL CELLS (test code = 48975) 0-5 /HPF BACTERIA (test code = 1515) 3+ CASTS, HYALINE (test code = 1517) TONY Schumacher AustinURINALYSIS WITH [id number] 00:00:00* Test Item Value Reference Range Interpretation [...] >50 /HPF EPITHELIAL CELLS (test code = 71452) 0-5 /HPF BACTERIA (test code = 1515) 3+ CASTS, HYALINE (test code = 1517) TONY Schumacher AustinURINALYSIS WITH [id number] 00:00:00* Test Item Value Reference Range Interpretation [...] >50 /HPF EPITHELIAL CELLS (test code = 63323) 0-5 /HPF BACTERIA (test code = 1515) 3+ CASTS, HYALINE (test code = 1517) TONY Schumacher AustinURINALYSIS WITH [id number] 00:00:00* Test Item Value Reference Range Interpretation [...] >50 /HPF EPITHELIAL CELLS (test code = 01072) 0-5 /HPF BACTERIA (test code = 1515) 3+ CASTS, HYALINE (test code = 1517) TONY Schumacher AustinURINALYSIS WITH [id number] 00:00:00* Test Item Value Reference Range Interpretation [...] >50 /HPF EPITHELIAL CELLS (test code = 32651) 0-5 /HPF BACTERIA (test code = 1515) 3+ CASTS, HYALINE (test code = 1517) TONY Schumacher AustinURINALYSIS WITH [id number] 00:00:00* Test Item Value Reference Range Interpretation [...] >50 /HPF EPITHELIAL CELLS (test code = 55218) 0-5 /HPF BACTERIA (test code = 1515) 3+ CASTS, HYALINE (test code = 1517) TONY Schumacher AustinURINALYSIS WITH [id number] 00:00:00* Test Item Value Reference Range Interpretation [...] >50 /HPF EPITHELIAL CELLS (test code = 27523) 0-5 /HPF BACTERIA (test code = 1515) 3+ CASTS, HYALINE (test code = 1517) TRACE Delfino Schumacher AustinURINALYSIS WITH [id number] 00:00:00* Test Item Value Reference Range Interpretation [...] >50 /HPF EPITHELIAL CELLS (test code = 77820) 0-5 /HPF BACTERIA (test code = 1515) 3+ CASTS, HYALINE (test code = 1517) TRACE Delfino F AustinURINALYSIS WITH [id number] 00:00:00* Test Item Value Reference Range Interpretation [...] >50 /HPF EPITHELIAL CELLS (test code = 81774) 0-5 /HPF BACTERIA (test code = 1515) 3+ CASTS, HYALINE (test code = 1517) TONY Schumacher AustinURINALYSIS WITH [id number] 00:00:00* Test Item Value Reference Range Interpretation [...] >50 /HPF EPITHELIAL CELLS (test code = 95969) 0-5 /HPF BACTERIA (test code = 1515) 3+ CASTS, HYALINE (test code = 1517) TONY Schumacher AustinURINALYSIS WITH [id number] 00:00:00* Test Item Value Reference Range Interpretation [...] >50 /HPF EPITHELIAL CELLS (test code = 00679) 0-5 /HPF BACTERIA (test code = 1515) 3+ CASTS, HYALINE (test code = 1517) TONY Schumacher AustinURINALYSIS WITH [id number] 00:00:00* Test Item Value Reference Range Interpretation [...] >50 /HPF EPITHELIAL CELLS (test code = 76568) 0-5 /HPF BACTERIA (test code = 1515) 3+ CASTS, HYALINE (test code = 1517) TONY Schumacher AustinURINALYSIS WITH [id number] 00:00:00* Test Item Value Reference Range Interpretation [...] >50 /HPF EPITHELIAL CELLS (test code = 58147) 0-5 /HPF BACTERIA (test code = 1515) 3+ CASTS, HYALINE (test code = 1517) TONY Schumacher AustinURINALYSIS WITH [id number] 00:00:00* Test Item Value Reference Range Interpretation [...] >50 /HPF EPITHELIAL CELLS (test code = 53357) 0-5 /HPF BACTERIA (test code = 1515) 3+ CASTS, HYALINE (test code = 1517) TONY Schumacher AustinURINALYSIS WITH [id number] 00:00:00* Test Item Value Reference Range Interpretation [...] >50 /HPF EPITHELIAL CELLS (test code = 48684) 0-5 /HPF BACTERIA (test code = 1515) 3+ CASTS, HYALINE (test code = 1517) TONY Schumacher AustinURINALYSIS WITH [id number] 00:00:00* Test Item Value Reference Range Interpretation [...] >50 /HPF EPITHELIAL CELLS (test code = 22313) 0-5 /HPF BACTERIA (test code = 1515) 3+ CASTS, HYALINE (test code = 1517) TRACE Delfino Schumacher AustinURINALYSIS WITH [id number] 00:00:00* Test Item Value Reference Range Interpretation [...] >50 /HPF EPITHELIAL CELLS (test code = 68016) 0-5 /HPF BACTERIA (test code = 1515) 3+ CASTS, HYALINE (test code = 1517) TRACE Delfino F AustinURINALYSIS WITH [id number] 00:00:00* Test Item Value Reference Range Interpretation [...] >50 /HPF EPITHELIAL CELLS (test code = 22831) 0-5 /HPF BACTERIA (test code = 1515) 3+ CASTS, HYALINE (test code = 1517) TONY Schumacher AustinURINALYSIS WITH [id number] 00:00:00* Test Item Value Reference Range Interpretation [...] >50 /HPF EPITHELIAL CELLS (test code = 06714) 0-5 /HPF BACTERIA (test code = 1515) 3+ CASTS, HYALINE (test code = 1517) TONY Schumacher AustinURINALYSIS WITH [id number] 00:00:00* Test Item Value Reference Range Interpretation [...] >50 /HPF EPITHELIAL CELLS (test code = 97304) 0-5 /HPF BACTERIA (test code = 1515) 3+ CASTS, HYALINE (test code = 1517) TONY Schumacher AustinURINALYSIS WITH [id number] 00:00:00* Test Item Value Reference Range Interpretation [...] >50 /HPF EPITHELIAL CELLS (test code = 26363) 0-5 /HPF BACTERIA (test code = 1515) 3+ CASTS, HYALINE (test code = 1517) TONY OrtaURINALYSIS WITH [id number] 00:00:00* Test Item Value Reference Range Interpretation [...] >50 /HPF EPITHELIAL CELLS (test code = 98465) 0-5 /HPF BACTERIA (test code = 1515) 3+ CASTS, HYALINE (test code = 1517) TONY Schumacher AustinURINALYSIS WITH [id number] 00:00:00* Test Item Value Reference Range Interpretation [...] >50 /HPF EPITHELIAL CELLS (test code = 52093) 0-5 /HPF BACTERIA (test code = 1515) 3+ CASTS, HYALINE (test code = 1517) TONY Schumacher AustinURINALYSIS WITH [id number] 00:00:00* Test Item Value Reference Range Interpretation [...] >50 /HPF EPITHELIAL CELLS (test code = 70915) 0-5 /HPF BACTERIA (test code = 1515) 3+ CASTS, HYALINE (test code = 1517) TONY Schumacher AustinURINALYSIS WITH [id number] 00:00:00* Test Item Value Reference Range Interpretation [...] >50 /HPF EPITHELIAL CELLS (test code = 78610) 0-5 /HPF BACTERIA (test code = 1515) 3+ CASTS, HYALINE (test code = 1517) TONY Schumacher AustinURINALYSIS WITH [id number] 00:00:00* Test Item Value Reference Range Interpretation [...] >50 /HPF EPITHELIAL CELLS (test code = 89058) 0-5 /HPF BACTERIA (test code = 1515) 3+ CASTS, HYALINE (test code = 1517) TONY OrtaCOMPREHENSIVE METABOLIC [id number] 00:00:00* Test Item Value Reference Range Interpretation Comme nts GLUCOSE (test code = 2217) 80 MG/DL BUN (test code = 2208) 18 MG/DL CREATININE (test code = 2214) 1.06 MG/DL eGFR AMER. (test cod e = 39052) 67 ML/MIN/1.73 eGFR NON- AMER. (test code = 62503) 58 ML/MIN/1.73 CALC BUN/CREAT (test code = [...] code = 2219) 54 U/L CBC W/AUTO [id number] 00:00:00* Test Item Value Reference Range Interpretation [...] ABS NUCLEATED RBCS (test cod e = 02654) 0.00 K/UL COMMENTS (test code = 1016) (NOTE) LIPID [id number] 00:00:00* Test Item Value Reference Range Interpretation Comme nts CHOLESTEROL (test code = 2210) 174 MG/DL TRIGLYCERIDES (test code = 2232) 63 MG/DL HDL CHOLESTEROL (test code = 2220) 87 MG/DL CALC LDL CHOL (test code = 2237) 73 MG/DL RISK RATIO LDL/HDL (test cod e = 2238) 0.84 RATIO COMPREHENSIVE METABOLIC [id number] 00:00:00* Test Item Value Reference Range Interpretation Comme nts GLUCOSE (test code = 2217) 80 MG/DL BUN (test code = 2208) 18 MG/DL CREATININE (test code = 2214) 1.06 MG/DL eGFR AMER. (test cod e = 84963) 67 ML/MIN/1.73 eGFR NON- AMER. (test code = 67114) 58 ML/MIN/1.73 CALC BUN/CREAT (test code = [...] code = 2219) 54 U/L CBC W/AUTO [id number] 00:00:00* Test Item Value Reference Range Interpretation [...] ABS NUCLEATED RBCS (test cod e = 81536) 0.00 K/UL COMMENTS (test code = 1016) (NOTE) LIPID [id number] 00:00:00* Test Item Value Reference Range Interpretation Comme nts CHOLESTEROL (test code = 2210) 174 MG/DL TRIGLYCERIDES (test code = 2232) 63 MG/DL HDL CHOLESTEROL (test code = 2220) 87 MG/DL CALC LDL CHOL (test code = 2237) 73 MG/DL RISK RATIO LDL/HDL (test cod e = 2238) 0.84 RATIO COMPREHENSIVE METABOLIC [id number] 00:00:00* Test Item Value Reference Range Interpretation Comme nts GLUCOSE (test code = 2217) 80 MG/DL BUN (test code = 2208) 18 MG/DL CREATININE (test code = 2214) 1.06 MG/DL eGFR AMER. (test cod e = 52845) 67 ML/MIN/1.73 eGFR NON- AMER. (test code = 02194) 58 ML/MIN/1.73 CALC BUN/CREAT (test code = [...] code = 2219) 54 U/L CBC W/AUTO [id number] 00:00:00* Test Item Value Reference Range Interpretation [...] ABS NUCLEATED RBCS (test cod e = 40627) 0.00 K/UL COMMENTS (test code = 1016) (NOTE) LIPID [id number] 00:00:00* Test Item Value Reference Range Interpretation Comme nts CHOLESTEROL (test code = 2210) 174 MG/DL TRIGLYCERIDES (test code = 2232) 63 MG/DL HDL CHOLESTEROL (test code = 2220) 87 MG/DL CALC LDL CHOL (test code = 2237) 73 MG/DL RISK RATIO LDL/HDL (test cod e = 2238) 0.84 RATIO COMPREHENSIVE METABOLIC [id number] 00:00:00* Test Item Value Reference Range Interpretation Comme nts GLUCOSE (test code = 2217) 80 MG/DL BUN (test code = 2208) 18 MG/DL CREATININE (test code = 2214) 1.06 MG/DL eGFR AMER. (test cod e = 93776) 67 ML/MIN/1.73 eGFR NON- AMER. (test code = 07776) 58 ML/MIN/1.73 CALC BUN/CREAT (test code = [...] code = 2219) 54 U/L COMPREHENSIVE METABOLIC [id number] 00:00:00* Test Item Value Reference Range Interpretation Comme nts GLUCOSE (test code = 2217) 80 MG/DL BUN (test code = 2208) 18 MG/DL CREATININE (test code = 2214) 1.06 MG/DL eGFR AMER. (test cod e = 38209) 67 ML/MIN/1.73 eGFR NON- AMER. (test code = 75024) 58 ML/MIN/1.73 CALC BUN/CREAT (test code = [...] (test code = 2219) 54 U/L [facility] [id number] 00:00:00* Test Item Value Reference Range Interpretation [...] ABS NUCLEATED RBCS (test cod e = 94779) 0.00 K/UL COMMENTS (test code = 1016) (NOTE) Delfino Schumacher [facility] W/AUTO [id number] 00:00:00* Test Item Value Reference Range Interpretation [...] ABS NUCLEATED RBCS (test cod e = 65158) 0.00 K/UL COMMENTS (test code = 1016) (NOTE) Delfino OrtaLIPID [id number] 00:00:00* Test Item Value Reference Range Interpretation Comme nts CHOLESTEROL (test code = 2210) 174 MG/DL TRIGLYCERIDES (test code = 2232) 63 MG/DL HDL CHOLESTEROL (test code = 2220) 87 MG/DL CALC LDL CHOL (test code = 2237) 73 MG/DL RISK RATIO LDL/HDL (test cod e = 2238) 0.84 RATIO Delfino OrtaCOMPREHENSIVE METABOLIC [id number] 00:00:00* Test Item Value Reference Range Interpretation Comme nts GLUCOSE (test code = 2217) 80 MG/DL BUN (test code = 2208) 18 MG/DL CREATININE (test code = 2214) 1.06 MG/DL eGFR AMER. (test cod e = 29829) 67 ML/MIN/1.73 eGFR NON- AMER. (test code = 30595) 58 ML/MIN/1.73 CALC BUN/CREAT (test code = [...] = 2219) 54 U/L Delfino OrtaCBC W/AUTO [id number] 00:00:00* Test Item Value Reference Range Interpretation [...] ABS NUCLEATED RBCS (test cod e = 39217) 0.00 K/UL COMMENTS (test code = 1016) (NOTE) Delfino Schumacher AustinLIPID [id number] 00:00:00* Test Item Value Reference Range Interpretation Comme nts CHOLESTEROL (test code = 2210) 174 MG/DL TRIGLYCERIDES (test code = 2232) 63 MG/DL HDL CHOLESTEROL (test code = 2220) 87 MG/DL CALC LDL CHOL (test code = 2237) 73 MG/DL RISK RATIO LDL/HDL (test cod e = 2238) 0.84 RATIO Delfino OrtaCOMPREHENSIVE METABOLIC [id number] 00:00:00* Test Item Value Reference Range Interpretation Comme nts GLUCOSE (test code = 2217) 80 MG/DL BUN (test code = 2208) 18 MG/DL CREATININE (test code = 2214) 1.06 MG/DL eGFR AMER. (test cod e = 74234) 67 ML/MIN/1.73 eGFR NON- AMER. (test code = 45705) 58 ML/MIN/1.73 CALC BUN/CREAT (test code = [...] code = 2219) 54 U/L Delfino Schumacher [facility] W/AUTO [id number] 00:00:00* Test Item Value Reference Range Interpretation [...] ABS NUCLEATED RBCS (test cod e = 21100) 0.00 K/UL COMMENTS (test code = 1016) (NOTE) Delfino Schumacher AustinLIPID [id number] 00:00:00* Test Item Value Reference Range Interpretation Comme nts CHOLESTEROL (test code = 2210) 174 MG/DL TRIGLYCERIDES (test code = 2232) 63 MG/DL HDL CHOLESTEROL (test code = 2220) 87 MG/DL CALC LDL CHOL (test code = 2237) 73 MG/DL RISK RATIO LDL/HDL (test cod e = 2238) 0.84 RATIO Delfino Schumacher AustinLIPID [id number] 00:00:00* Test Item Value Reference Range Interpretation Comme nts CHOLESTEROL (test code = 2210) 174 MG/DL TRIGLYCERIDES (test code = 2232) 63 MG/DL HDL CHOLESTEROL (test code = 2220) 87 MG/DL CALC LDL CHOL (test code = 2237) 73 MG/DL RISK RATIO LDL/HDL (test cod e = 2238) 0.84 RATIO Delfino OrtaCOMPREHENSIVE METABOLIC [id number] 00:00:00* Test Item Value Reference Range Interpretation Comme nts GLUCOSE (test code = 2217) 80 MG/DL BUN (test code = 2208) 18 MG/DL CREATININE (test code = 2214) 1.06 MG/DL eGFR AMER. (test cod e = 74198) 67 ML/MIN/1.73 eGFR NON- AMER. (test code = 93305) 58 ML/MIN/1.73 CALC BUN/CREAT (test code = [...] = 2219) 54 U/L Delfino OrtaCBC W/AUTO [id number] 00:00:00* Test Item Value Reference Range Interpretation [...] ABS NUCLEATED RBCS (test cod e = 77730) 0.00 K/UL COMMENTS (test code = 1016) (NOTE) Delfino OrtaLIPID [id number] 00:00:00* Test Item Value Reference Range Interpretation Comme nts CHOLESTEROL (test code = 2210) 174 MG/DL TRIGLYCERIDES (test code = 2232) 63 MG/DL HDL CHOLESTEROL (test code = 2220) 87 MG/DL CALC LDL CHOL (test code = 2237) 73 MG/DL RISK RATIO LDL/HDL (test cod e = 2238) 0.84 RATIO Delfino F AustinCOMPREHENSIVE METABOLIC [id number] 00:00:00* Test Item Value Reference Range Interpretation Comme nts GLUCOSE (test code = 2217) 80 MG/DL BUN (test code = 2208) 18 MG/DL CREATININE (test code = 2214) 1.06 MG/DL eGFR AMER. (test cod e = 59075) 67 ML/MIN/1.73 eGFR NON- AMER. (test code = 04046) 58 ML/MIN/1.73 CALC BUN/CREAT (test code = [...] = 2219) 54 U/L Delfino OrtaCBC W/AUTO [id number] 00:00:00* Test Item Value Reference Range Interpretation [...] ABS NUCLEATED RBCS (test cod e = 11717) 0.00 K/UL COMMENTS (test code = 1016) (NOTE) Delfino Schumacher YouCOMPREHENSIVE METABOLIC [id number] 00:00:00* Test Item Value Reference Range Interpretation Comme nts GLUCOSE (test code = 2217) 80 MG/DL BUN (test code = 2208) 18 MG/DL CREATININE (test code = 2214) 1.06 MG/DL eGFR AMER. (test cod e = 76807) 67 ML/MIN/1.73 eGFR NON- AMER. (test code = 29397) 58 ML/MIN/1.73 CALC BUN/CREAT (test code = [...] = 2219) 54 U/L Delfino Schumacher YouLIPID [id number] 00:00:00* Test Item Value Reference Range Interpretation Comme nts CHOLESTEROL (test code = 2210) 174 MG/DL TRIGLYCERIDES (test code = 2232) 63 MG/DL HDL CHOLESTEROL (test code = 2220) 87 MG/DL CALC LDL CHOL (test code = 2237) 73 MG/DL RISK RATIO LDL/HDL (test cod e = 2238) 0.84 RATIO Delfino OrtaCOMPREHENSIVE METABOLIC [id number] 00:00:00* Test Item Value Reference Range Interpretation Comme nts GLUCOSE (test code = 2217) 80 MG/DL BUN (test code = 2208) 18 MG/DL CREATININE (test code = 2214) 1.06 MG/DL eGFR AMER. (test cod e = 75247) 67 ML/MIN/1.73 eGFR NON- AMER. (test code = 14395) 58 ML/MIN/1.73 CALC BUN/CREAT (test code = [...] = 2219) 54 U/L Delfino OrtaCBC W/AUTO [id number] 00:00:00* Test Item Value Reference Range Interpretation [...] ABS NUCLEATED RBCS (test cod e = 87479) 0.00 K/UL COMMENTS (test code = 1016) (NOTE) Delfino Schumacher AustinLIPID [id number] 00:00:00* Test Item Value Reference Range Interpretation Comme nts CHOLESTEROL (test code = 2210) 174 MG/DL TRIGLYCERIDES (test code = 2232) 63 MG/DL HDL CHOLESTEROL (test code = 2220) 87 MG/DL CALC LDL CHOL (test code = 2237) 73 MG/DL RISK RATIO LDL/HDL (test cod e = 2238) 0.84 RATIO Delfino OrtaCOMPREHENSIVE METABOLIC [id number] 00:00:00* Test Item Value Reference Range Interpretation Comme nts GLUCOSE (test code = 2217) 80 MG/DL BUN (test code = 2208) 18 MG/DL CREATININE (test code = 2214) 1.06 MG/DL eGFR AMER. (test cod e = 21852) 67 ML/MIN/1.73 eGFR NON- AMER. (test code = 09121) 58 ML/MIN/1.73 CALC BUN/CREAT (test code = [...] code = 2219) 54 U/L [facility] [id number] 00:00:00* Test Item Value Reference Range Interpretation [...] ABS NUCLEATED RBCS (test cod e = 35727) 0.00 K/UL COMMENTS (test code = 1016) (NOTE) Delfino OrtaLIPID [id number] 00:00:00* Test Item Value Reference Range Interpretation Comme nts CHOLESTEROL (test code = 2210) 174 MG/DL TRIGLYCERIDES (test code = 2232) 63 MG/DL HDL CHOLESTEROL (test code = 2220) 87 MG/DL CALC LDL CHOL (test code = 2237) 73 MG/DL RISK RATIO LDL/HDL (test cod e = 2238) 0.84 RATIO Delfino OrtaCOMPREHENSIVE METABOLIC [id number] 00:00:00* Test Item Value Reference Range Interpretation Comme nts GLUCOSE (test code = 2217) 80 MG/DL BUN (test code = 2208) 18 MG/DL CREATININE (test code = 2214) 1.06 MG/DL eGFR AMER. (test cod e = 22393) 67 ML/MIN/1.73 eGFR NON- AMER. (test code = 29497) 58 ML/MIN/1.73 CALC BUN/CREAT (test code = [...] = 2219) 54 U/L Delfino OrtaCBC W/AUTO [id number] 00:00:00* Test Item Value Reference Range Interpretation [...] ABS NUCLEATED RBCS (test cod e = 20118) 0.00 K/UL COMMENTS (test code = 1016) (NOTE) Delfino Endy AustinLIPID [id number] 00:00:00* Test Item Value Reference Range Interpretation Comme nts CHOLESTEROL (test code = 2210) 174 MG/DL TRIGLYCERIDES (test code = 2232) 63 MG/DL HDL CHOLESTEROL (test code = 2220) 87 MG/DL CALC LDL CHOL (test code = 2237) 73 MG/DL RISK RATIO LDL/HDL (test cod e = 2238) 0.84 RATIO Delfino OrtaCOMPREHENSIVE METABOLIC [id number] 00:00:00* Test Item Value Reference Range Interpretation Comme nts GLUCOSE (test code = 2217) 80 MG/DL BUN (test code = 2208) 18 MG/DL CREATININE (test code = 2214) 1.06 MG/DL eGFR AMER. (test cod e = 28271) 67 ML/MIN/1.73 eGFR NON- AMER. (test code = 12292) 58 ML/MIN/1.73 CALC BUN/CREAT (test code = [...] code = 2219) 54 U/L Delfino Schumacher [facility] W/AUTO [id number] 00:00:00* Test Item Value Reference Range Interpretation [...] ABS NUCLEATED RBCS (test cod e = 28187) 0.00 K/UL COMMENTS (test code = 1016) (NOTE) Delfino OrtaLIPID [id number] 00:00:00* Test Item Value Reference Range Interpretation Comme nts CHOLESTEROL (test code = 2210) 174 MG/DL TRIGLYCERIDES (test code = 2232) 63 MG/DL HDL CHOLESTEROL (test code = 2220) 87 MG/DL CALC LDL CHOL (test code = 2237) 73 MG/DL RISK RATIO LDL/HDL (test cod e = 2238) 0.84 RATIO Delfino OrtaCOMPREHENSIVE METABOLIC [id number] 00:00:00* Test Item Value Reference Range Interpretation Comme nts GLUCOSE (test code = 2217) 80 MG/DL BUN (test code = 2208) 18 MG/DL CREATININE (test code = 2214) 1.06 MG/DL eGFR AMER. (test cod e = 69039) 67 ML/MIN/1.73 eGFR NON- AMER. (test code = 85885) 58 ML/MIN/1.73 CALC BUN/CREAT (test code = [...] = 2219) 54 U/L Delfino OrtaCBC W/AUTO [id number] 00:00:00* Test Item Value Reference Range Interpretation [...] ABS NUCLEATED RBCS (test cod e = 83645) 0.00 K/UL COMMENTS (test code = 1016) (NOTE) Delfino Endy AustinLIPID [id number] 00:00:00* Test Item Value Reference Range Interpretation Comme nts CHOLESTEROL (test code = 2210) 174 MG/DL TRIGLYCERIDES (test code = 2232) 63 MG/DL HDL CHOLESTEROL (test code = 2220) 87 MG/DL CALC LDL CHOL (test code = 2237) 73 MG/DL RISK RATIO LDL/HDL (test cod e = 2238) 0.84 RATIO Delfino OrtaCOMPREHENSIVE METABOLIC [id number] 00:00:00* Test Item Value Reference Range Interpretation Comme nts GLUCOSE (test code = 2217) 80 MG/DL BUN (test code = 2208) 18 MG/DL CREATININE (test code = 2214) 1.06 MG/DL eGFR AMER. (test cod e = 75974) 67 ML/MIN/1.73 eGFR NON- AMER. (test code = 31951) 58 ML/MIN/1.73 CALC BUN/CREAT (test code = [...] code = 2219) 54 U/L Delfino Schumacher [facility] W/AUTO [id number] 00:00:00* Test Item Value Reference Range Interpretation [...] ABS NUCLEATED RBCS (test cod e = 30514) 0.00 K/UL COMMENTS (test code = 1016) (NOTE) Delfino Schumacher AustinLIPID [id number] 00:00:00* Test Item Value Reference Range Interpretation Comme nts CHOLESTEROL (test code = 2210) 174 MG/DL TRIGLYCERIDES (test code = 2232) 63 MG/DL HDL CHOLESTEROL (test code = 2220) 87 MG/DL CALC LDL CHOL (test code = 2237) 73 MG/DL RISK RATIO LDL/HDL (test cod e = 2238) 0.84 RATIO Delfino OrtaCOMPREHENSIVE METABOLIC [id number] 00:00:00* Test Item Value Reference Range Interpretation Comme nts GLUCOSE (test code = 2217) 80 MG/DL BUN (test code = 2208) 18 MG/DL CREATININE (test code = 2214) 1.06 MG/DL eGFR AMER. (test cod e = 62484) 67 ML/MIN/1.73 eGFR NON- AMER. (test code = 71144) 58 ML/MIN/1.73 CALC BUN/CREAT (test code = [...] = 2219) 54 U/L Delfino OrtaCBC W/AUTO [id number] 00:00:00* Test Item Value Reference Range Interpretation [...] ABS NUCLEATED RBCS (test cod e = 74001) 0.00 K/UL COMMENTS (test code = 1016) (NOTE) Delfino Schumacher AustinLIPID [id number] 00:00:00* Test Item Value Reference Range Interpretation Comme nts CHOLESTEROL (test code = 2210) 174 MG/DL TRIGLYCERIDES (test code = 2232) 63 MG/DL HDL CHOLESTEROL (test code = 2220) 87 MG/DL CALC LDL CHOL (test code = 2237) 73 MG/DL RISK RATIO LDL/HDL (test cod e = 2238) 0.84 RATIO Delfino OrtaCOMPREHENSIVE METABOLIC [id number] 00:00:00* Test Item Value Reference Range Interpretation Comme nts GLUCOSE (test code = 2217) 80 MG/DL BUN (test code = 2208) 18 MG/DL CREATININE (test code = 2214) 1.06 MG/DL eGFR AMER. (test cod e = 64039) 67 ML/MIN/1.73 eGFR NON- AMER. (test code = 27091) 58 ML/MIN/1.73 CALC BUN/CREAT (test code = [...] code = 2219) 54 U/L Delfino Endy [facility] W/AUTO [id number] 00:00:00* Test Item Value Reference Range Interpretation [...] ABS NUCLEATED RBCS (test cod e = 20449) 0.00 K/UL COMMENTS (test code = 1016) (NOTE) Delfino Schumacher AustinLIPID [id number] 00:00:00* Test Item Value Reference Range Interpretation Comme nts CHOLESTEROL (test code = 2210) 174 MG/DL TRIGLYCERIDES (test code = 2232) 63 MG/DL HDL CHOLESTEROL (test code = 2220) 87 MG/DL CALC LDL CHOL (test code = 2237) 73 MG/DL RISK RATIO LDL/HDL (test cod e = 2238) 0.84 RATIO Delfino OrtaCOMPREHENSIVE METABOLIC [id number] 00:00:00* Test Item Value Reference Range Interpretation Comme nts GLUCOSE (test code = 2217) 80 MG/DL BUN (test code = 2208) 18 MG/DL CREATININE (test code = 2214) 1.06 MG/DL eGFR AMER. (test cod e = 61963) 67 ML/MIN/1.73 eGFR NON- AMER. (test code = 03046) 58 ML/MIN/1.73 CALC BUN/CREAT (test code = [...] = 2219) 54 U/L Delfino OrtaCBC W/AUTO [id number] 00:00:00* Test Item Value Reference Range Interpretation [...] ABS NUCLEATED RBCS (test cod e = 18083) 0.00 K/UL COMMENTS (test code = 1016) (NOTE) Delfino OrtaLIPID [id number] 00:00:00* Test Item Value Reference Range Interpretation Comme nts CHOLESTEROL (test code = 2210) 174 MG/DL TRIGLYCERIDES (test code = 2232) 63 MG/DL HDL CHOLESTEROL (test code = 2220) 87 MG/DL CALC LDL CHOL (test code = 2237) 73 MG/DL RISK RATIO LDL/HDL (test cod e = 2238) 0.84 RATIO Delfino OrtaCOMPREHENSIVE METABOLIC [id number] 00:00:00* Test Item Value Reference Range Interpretation Comme nts GLUCOSE (test code = 2217) 80 MG/DL BUN (test code = 2208) 18 MG/DL CREATININE (test code = 2214) 1.06 MG/DL eGFR AMER. (test cod e = 88173) 67 ML/MIN/1.73 eGFR NON- AMER. (test code = 64430) 58 ML/MIN/1.73 CALC BUN/CREAT (test code = [...] code = 2219) 54 U/L Delfino Schumacher [facility] W/AUTO [id number] 00:00:00* Test Item Value Reference Range Interpretation [...] ABS NUCLEATED RBCS (test cod e = 04560) 0.00 K/UL COMMENTS (test code = 1016) (NOTE) Delfino OrtaLIPID [id number] 00:00:00* Test Item Value Reference Range Interpretation Comme nts CHOLESTEROL (test code = 2210) 174 MG/DL TRIGLYCERIDES (test code = 2232) 63 MG/DL HDL CHOLESTEROL (test code = 2220) 87 MG/DL CALC LDL CHOL (test code = 2237) 73 MG/DL RISK RATIO LDL/HDL (test cod e = 2238) 0.84 RATIO Delfino OrtaCOMPREHENSIVE METABOLIC [id number] 00:00:00* Test Item Value Reference Range Interpretation Comme nts GLUCOSE (test code = 2217) 80 MG/DL BUN (test code = 2208) 18 MG/DL CREATININE (test code = 2214) 1.06 MG/DL eGFR AMER. (test cod e = 29416) 67 ML/MIN/1.73 eGFR NON- AMER. (test code = 88559) 58 ML/MIN/1.73 CALC BUN/CREAT (test code = [...] = 2219) 54 U/L Delfino OrtaCBC W/AUTO [id number] 00:00:00* Test Item Value Reference Range Interpretation [...] ABS NUCLEATED RBCS (test cod e = 18086) 0.00 K/UL COMMENTS (test code = 1016) (NOTE) Delfino OrtaLIPID [id number] 00:00:00* Test Item Value Reference Range Interpretation Comme nts CHOLESTEROL (test code = 2210) 174 MG/DL TRIGLYCERIDES (test code = 2232) 63 MG/DL HDL CHOLESTEROL (test code = 2220) 87 MG/DL CALC LDL CHOL (test code = 2237) 73 MG/DL RISK RATIO LDL/HDL (test cod e = 2238) 0.84 RATIO Delfino OrtaCOMPREHENSIVE METABOLIC [id number] 00:00:00* Test Item Value Reference Range Interpretation Comme nts GLUCOSE (test code = 2217) 80 MG/DL BUN (test code = 2208) 18 MG/DL CREATININE (test code = 2214) 1.06 MG/DL eGFR AMER. (test cod e = 44615) 67 ML/MIN/1.73 eGFR NON- AMER. (test code = 84993) 58 ML/MIN/1.73 CALC BUN/CREAT (test code = [...] = 2219) 54 U/L Delfino OrtaCBC W/AUTO [id number] 00:00:00* Test Item Value Reference Range Interpretation [...] ABS NUCLEATED RBCS (test cod e = 06548) 0.00 K/UL COMMENTS (test code = 1016) (NOTE) Delfino Schumacher AustinLIPID [id number] 00:00:00* Test Item Value Reference Range Interpretation Comme nts CHOLESTEROL (test code = 2210) 174 MG/DL TRIGLYCERIDES (test code = 2232) 63 MG/DL HDL CHOLESTEROL (test code = 2220) 87 MG/DL CALC LDL CHOL (test code = 2237) 73 MG/DL RISK RATIO LDL/HDL (test cod e = 2238) 0.84 RATIO Delfino OrtaCOMPREHENSIVE METABOLIC [id number] 00:00:00* Test Item Value Reference Range Interpretation Comme nts GLUCOSE (test code = 2217) 80 MG/DL BUN (test code = 2208) 18 MG/DL CREATININE (test code = 2214) 1.06 MG/DL eGFR AMER. (test cod e = 34539) 67 ML/MIN/1.73 eGFR NON- AMER. (test code = 09789) 58 ML/MIN/1.73 CALC BUN/CREAT (test code = [...] = 2219) 54 U/L Delfino OrtaCBC W/AUTO [id number] 00:00:00* Test Item Value Reference Range Interpretation [...] ABS NUCLEATED RBCS (test cod e = 85281) 0.00 K/UL COMMENTS (test code = 1016) (NOTE) Delfino OrtaLIPID [id number] 00:00:00* Test Item Value Reference Range Interpretation Comme nts CHOLESTEROL (test code = 2210) 174 MG/DL TRIGLYCERIDES (test code = 2232) 63 MG/DL HDL CHOLESTEROL (test code = 2220) 87 MG/DL CALC LDL CHOL (test code = 2237) 73 MG/DL RISK RATIO LDL/HDL (test cod e = 2238) 0.84 RATIO Delfino OrtaCOMPREHENSIVE METABOLIC [id number] 00:00:00* Test Item Value Reference Range Interpretation Comme nts GLUCOSE (test code = 2217) 80 MG/DL BUN (test code = 2208) 18 MG/DL CREATININE (test code = 2214) 1.06 MG/DL eGFR AMER. (test cod e = 53166) 67 ML/MIN/1.73 eGFR NON- AMER. (test code = 42479) 58 ML/MIN/1.73 CALC BUN/CREAT (test code = [...] 2219) 54 U/L Delfino Schumacher YouCBC W/AUTO [id number] 00:00:00* Test Item Value Reference Range Interpretation [...] ABS NUCLEATED RBCS (test cod e = 34160) 0.00 K/UL COMMENTS (test code = 1016) (NOTE) Delfino Schumacher AustinLIPID [id number] 00:00:00* Test Item Value Reference Range Interpretation Comme nts CHOLESTEROL (test code = 2210) 174 MG/DL TRIGLYCERIDES (test code = 2232) 63 MG/DL HDL CHOLESTEROL (test code = 2220) 87 MG/DL CALC LDL CHOL (test code = 2237) 73 MG/DL RISK RATIO LDL/HDL (test cod e = 2238) 0.84 RATIO Delfino OrtaCOMPREHENSIVE METABOLIC [id number] 00:00:00* Test Item Value Reference Range Interpretation Comme nts GLUCOSE (test code = 2217) 80 MG/DL BUN (test code = 2208) 18 MG/DL CREATININE (test code = 2214) 1.06 MG/DL eGFR AMER. (test cod e = 04215) 67 ML/MIN/1.73 eGFR NON- AMER. (test code = 77326) 58 ML/MIN/1.73 CALC BUN/CREAT (test code = [...] = 2219) 54 U/L Delfino OrtaCBC W/AUTO [id number] 00:00:00* Test Item Value Reference Range Interpretation [...] ABS NUCLEATED RBCS (test cod e = 24370) 0.00 K/UL COMMENTS (test code = 1016) (NOTE) Delfino Endy YouLIPID [id number] 00:00:00* Test Item Value Reference Range Interpretation Comme nts CHOLESTEROL (test code = 2210) 174 MG/DL TRIGLYCERIDES (test code = 2232) 63 MG/DL HDL CHOLESTEROL (test code = 2220) 87 MG/DL CALC LDL CHOL (test code = 2237) 73 MG/DL RISK RATIO LDL/HDL (test cod e = 2238) 0.84 RATIO Delfino OrtaCOMPREHENSIVE METABOLIC [id number] 00:00:00* Test Item Value Reference Range Interpretation Comme nts GLUCOSE (test code = 2217) 80 MG/DL BUN (test code = 2208) 18 MG/DL CREATININE (test code = 2214) 1.06 MG/DL eGFR AMER. (test cod e = 99817) 67 ML/MIN/1.73 eGFR NON- AMER. (test code = 92622) 58 ML/MIN/1.73 CALC BUN/CREAT (test code = [...] = 2219) 54 U/L Delfino OrtaCBC W/AUTO [id number] 00:00:00* Test Item Value Reference Range Interpretation [...] ABS NUCLEATED RBCS (test cod e = 12110) 0.00 K/UL COMMENTS (test code = 1016) (NOTE) Delfino Schumacher AustinLIPID [id number] 00:00:00* Test Item Value Reference Range Interpretation Comme nts CHOLESTEROL (test code = 2210) 174 MG/DL TRIGLYCERIDES (test code = 2232) 63 MG/DL HDL CHOLESTEROL (test code = 2220) 87 MG/DL CALC LDL CHOL (test code = 2237) 73 MG/DL RISK RATIO LDL/HDL (test cod e = 2238) 0.84 RATIO Delfino OrtaCOMPREHENSIVE METABOLIC [id number] 00:00:00* Test Item Value Reference Range Interpretation Comme nts GLUCOSE (test code = 2217) 80 MG/DL BUN (test code = 2208) 18 MG/DL CREATININE (test code = 2214) 1.06 MG/DL eGFR AMER. (test cod e = 17002) 67 ML/MIN/1.73 eGFR NON- AMER. (test code = 02883) 58 ML/MIN/1.73 CALC BUN/CREAT (test code = [...] code = 2219) 54 U/L [facility]elfino [facility] [id number] 00:00:00* Test Item Value Reference Range Interpretation [...] ABS NUCLEATED RBCS (test cod e = 54534) 0.00 K/UL COMMENTS (test code = 1016) (NOTE) Delfino OrtaLIPID [id number] 00:00:00* Test Item Value Reference Range Interpretation Comme nts CHOLESTEROL (test code = 2210) 174 MG/DL TRIGLYCERIDES (test code = 2232) 63 MG/DL HDL CHOLESTEROL (test code = 2220) 87 MG/DL CALC LDL CHOL (test code = 2237) 73 MG/DL RISK RATIO LDL/HDL (test cod e = 2238) 0.84 RATIO Delfino OrtaCOMPREHENSIVE METABOLIC [id number] 00:00:00* Test Item Value Reference Range Interpretation Comme nts GLUCOSE (test code = 2217) 80 MG/DL BUN (test code = 2208) 18 MG/DL CREATININE (test code = 2214) 1.06 MG/DL eGFR AMER. (test cod e = 22097) 67 ML/MIN/1.73 eGFR NON- AMER. (test code = 79574) 58 ML/MIN/1.73 CALC BUN/CREAT (test code = [...] = 2219) 54 U/L Delfino OrtaCBC W/AUTO [id number] 00:00:00* Test Item Value Reference Range Interpretation [...] ABS NUCLEATED RBCS (test cod e = 48120) 0.00 K/UL COMMENTS (test code = 1016) (NOTE) Delfino Endy AustinLIPID [id number] 00:00:00* Test Item Value Reference Range Interpretation Comme nts CHOLESTEROL (test code = 2210) 174 MG/DL TRIGLYCERIDES (test code = 2232) 63 MG/DL HDL CHOLESTEROL (test code = 2220) 87 MG/DL CALC LDL CHOL (test code = 2237) 73 MG/DL RISK RATIO LDL/HDL (test cod e = 2238) 0.84 RATIO Delfino OrtaCOMPREHENSIVE METABOLIC [id number] 00:00:00* Test Item Value Reference Range Interpretation Comme nts GLUCOSE (test code = 2217) 80 MG/DL BUN (test code = 2208) 18 MG/DL CREATININE (test code = 2214) 1.06 MG/DL eGFR AMER. (test cod e = 60586) 67 ML/MIN/1.73 eGFR NON- AMER. (test code = 98113) 58 ML/MIN/1.73 CALC BUN/CREAT (test code = [...] code = 2219) 54 U/L Delfino Schumacher [facility] W/AUTO [id number] 00:00:00* Test Item Value Reference Range Interpretation [...] ABS NUCLEATED RBCS (test cod e = 32507) 0.00 K/UL COMMENTS (test code = 1016) (NOTE) Delfino OrtaLIPID [id number] 00:00:00* Test Item Value Reference Range Interpretation Comme nts CHOLESTEROL (test code = 2210) 174 MG/DL TRIGLYCERIDES (test code = 2232) 63 MG/DL HDL CHOLESTEROL (test code = 2220) 87 MG/DL CALC LDL CHOL (test code = 2237) 73 MG/DL RISK RATIO LDL/HDL (test cod e = 2238) 0.84 RATIO Delfino OrtaCOMPREHENSIVE METABOLIC [id number] 00:00:00* Test Item Value Reference Range Interpretation Comme nts GLUCOSE (test code = 2217) 80 MG/DL BUN (test code = 2208) 18 MG/DL CREATININE (test code = 2214) 1.06 MG/DL eGFR AMER. (test cod e = 09438) 67 ML/MIN/1.73 eGFR NON- AMER. (test code = 66612) 58 ML/MIN/1.73 CALC BUN/CREAT (test code = [...] = 2219) 54 U/L Delfino OrtaCBC W/AUTO [id number] 00:00:00* Test Item Value Reference Range Interpretation [...] ABS NUCLEATED RBCS (test cod e = 18414) 0.00 K/UL COMMENTS (test code = 1016) (NOTE) Delfino Schumacher AustinLIPID [id number] 00:00:00* Test Item Value Reference Range Interpretation Comme nts CHOLESTEROL (test code = 2210) 174 MG/DL TRIGLYCERIDES (test code = 2232) 63 MG/DL HDL CHOLESTEROL (test code = 2220) 87 MG/DL CALC LDL CHOL (test code = 2237) 73 MG/DL RISK RATIO LDL/HDL (test cod e = 2238) 0.84 RATIO Delfino OrtaCOMPREHENSIVE METABOLIC [id number] 00:00:00* Test Item Value Reference Range Interpretation Comme nts GLUCOSE (test code = 2217) 80 MG/DL BUN (test code = 2208) 18 MG/DL CREATININE (test code = 2214) 1.06 MG/DL eGFR AMER. (test cod e = 16425) 67 ML/MIN/1.73 eGFR NON- AMER. (test code = 25370) 58 ML/MIN/1.73 CALC BUN/CREAT (test code = [...] code = 2219) 54 U/L Delfino Schumacher [facility] W/AUTO [id number] 00:00:00* Test Item Value Reference Range Interpretation [...] ABS NUCLEATED RBCS (test cod e = 07408) 0.00 K/UL COMMENTS (test code = 1016) (NOTE) Delfino OrtaLIPID [id number] 00:00:00* Test Item Value Reference Range Interpretation Comme nts CHOLESTEROL (test code = 2210) 174 MG/DL TRIGLYCERIDES (test code = 2232) 63 MG/DL HDL CHOLESTEROL (test code = 2220) 87 MG/DL CALC LDL CHOL (test code = 2237) 73 MG/DL RISK RATIO LDL/HDL (test cod e = 2238) 0.84 RATIO Delifno OrtaCOMPREHENSIVE METABOLIC [id number] 00:00:00* Test Item Value Reference Range Interpretation Comme nts GLUCOSE (test code = 2217) 80 MG/DL BUN (test code = 2208) 18 MG/DL CREATININE (test code = 2214) 1.06 MG/DL eGFR AMER. (test cod e = 40927) 67 ML/MIN/1.73 eGFR NON- AMER. (test code = 03003) 58 ML/MIN/1.73 CALC BUN/CREAT (test code = [...] 2219) 54 U/L Delfino Schumacher [facility] W/AUTO [id number] 00:00:00* Test Item Value Reference Range Interpretation [...] ABS NUCLEATED RBCS (test cod e = 48629) 0.00 K/UL COMMENTS (test code = 1016) (NOTE) Delfino Schumacher AustinLIPID [id number] 00:00:00* Test Item Value Reference Range Interpretation Comme nts CHOLESTEROL (test code = 2210) 174 MG/DL TRIGLYCERIDES (test code = 2232) 63 MG/DL HDL CHOLESTEROL (test code = 2220) 87 MG/DL CALC LDL CHOL (test code = 2237) 73 MG/DL RISK RATIO LDL/HDL (test cod e = 2238) 0.84 RATIO Delfino OrtaCOMPREHENSIVE METABOLIC [id number] 00:00:00* Test Item Value Reference Range Interpretation Comme nts GLUCOSE (test code = 2217) 80 MG/DL BUN (test code = 2208) 18 MG/DL CREATININE (test code = 2214) 1.06 MG/DL eGFR AMER. (test cod e = 09480) 67 ML/MIN/1.73 eGFR NON- AMER. (test code = 98212) 58 ML/MIN/1.73 CALC BUN/CREAT (test code = [...] code = 2219) 54 U/L Delfino Schumacher [facility] W/AUTO [id number] 00:00:00* Test Item Value Reference Range Interpretation [...] ABS NUCLEATED RBCS (test cod e = 65590) 0.00 K/UL COMMENTS (test code = 1016) (NOTE) Delfino Schumacher AustinLIPID [id number] 00:00:00* Test Item Value Reference Range Interpretation Comme nts CHOLESTEROL (test code = 2210) 174 MG/DL TRIGLYCERIDES (test code = 2232) 63 MG/DL HDL CHOLESTEROL (test code = 2220) 87 MG/DL CALC LDL CHOL (test code = 2237) 73 MG/DL RISK RATIO LDL/HDL (test cod e = 2238) 0.84 RATIO Delfino OrtaCOMPREHENSIVE METABOLIC [id number] 00:00:00* Test Item Value Reference Range Interpretation Comme nts GLUCOSE (test code = 2217) 80 MG/DL BUN (test code = 2208) 18 MG/DL CREATININE (test code = 2214) 1.06 MG/DL eGFR AMER. (test cod e = 67006) 67 ML/MIN/1.73 eGFR NON- AMER. (test code = 21326) 58 ML/MIN/1.73 CALC BUN/CREAT (test code = [...] = 2219) 54 U/L Delfino OrtaCBC W/AUTO [id number] 00:00:00* Test Item Value Reference Range Interpretation [...] ABS NUCLEATED RBCS (test cod e = 61772) 0.00 K/UL COMMENTS (test code = 1016) (NOTE) Delfino OrtaLIPID [id number] 00:00:00* Test Item Value Reference Range Interpretation Comme nts CHOLESTEROL (test code = 2210) 174 MG/DL TRIGLYCERIDES (test code = 2232) 63 MG/DL HDL CHOLESTEROL (test code = 2220) 87 MG/DL CALC LDL CHOL (test code = 2237) 73 MG/DL RISK RATIO LDL/HDL (test cod e = 2238) 0.84 RATIO Delfino OrtaCOMPREHENSIVE METABOLIC [id number] 00:00:00* Test Item Value Reference Range Interpretation Comme nts GLUCOSE (test code = 2217) 80 MG/DL BUN (test code = 2208) 18 MG/DL CREATININE (test code = 2214) 1.06 MG/DL eGFR AMER. (test cod e = 34244) 67 ML/MIN/1.73 eGFR NON- AMER. (test code = 10877) 58 ML/MIN/1.73 CALC BUN/CREAT (test code = [...] (test code = 2219) 54 U/L [facility] [id number] 00:00:00* Test Item Value Reference Range Interpretation [...] ABS NUCLEATED RBCS (test cod e = 15094) 0.00 K/UL COMMENTS (test code = 1016) (NOTE) Delfino Schumacher AustinLIPID [id number] 00:00:00* Test Item Value Reference Range Interpretation Comme nts CHOLESTEROL (test code = 2210) 174 MG/DL TRIGLYCERIDES (test code = 2232) 63 MG/DL HDL CHOLESTEROL (test code = 2220) 87 MG/DL CALC LDL CHOL (test code = 2237) 73 MG/DL RISK RATIO LDL/HDL (test cod e = 2238) 0.84 RATIO Delfino OrtaCOMPREHENSIVE METABOLIC [id number] 00:00:00* Test Item Value Reference Range Interpretation Comme nts GLUCOSE (test code = 2217) 80 MG/DL BUN (test code = 2208) 18 MG/DL CREATININE (test code = 2214) 1.06 MG/DL eGFR AMER. (test cod e = 00078) 67 ML/MIN/1.73 eGFR NON- AMER. (test code = 53802) 58 ML/MIN/1.73 CALC BUN/CREAT (test code = [...] = 2219) 54 U/L Delfino OrtaCBC W/AUTO [id number] 00:00:00* Test Item Value Reference Range Interpretation [...] ABS NUCLEATED RBCS (test cod e = 35805) 0.00 K/UL COMMENTS (test code = 1016) (NOTE) Delfino OrtaLIPID [id number] 00:00:00* Test Item Value Reference Range Interpretation Comme nts CHOLESTEROL (test code = 2210) 174 MG/DL TRIGLYCERIDES (test code = 2232) 63 MG/DL HDL CHOLESTEROL (test code = 2220) 87 MG/DL CALC LDL CHOL (test code = 2237) 73 MG/DL RISK RATIO LDL/HDL (test cod e = 2238) 0.84 RATIO Delfino OrtaCOMPREHENSIVE METABOLIC [id number] 00:00:00* Test Item Value Reference Range Interpretation Comme nts GLUCOSE (test code = 2217) 80 MG/DL BUN (test code = 2208) 18 MG/DL CREATININE (test code = 2214) 1.06 MG/DL eGFR AMER. (test cod e = 29146) 67 ML/MIN/1.73 eGFR NON- AMER. (test code = 56418) 58 ML/MIN/1.73 CALC BUN/CREAT (test code = [...] = 2219) 54 U/L Delfino OrtaCBC W/AUTO [id number] 00:00:00* Test Item Value Reference Range Interpretation [...] ABS NUCLEATED RBCS (test cod e = 08025) 0.00 K/UL COMMENTS (test code = 1016) (NOTE) Delfino Schumacher AustinLIPID [id number] 00:00:00* Test Item Value Reference Range Interpretation Comme nts CHOLESTEROL (test code = 2210) 174 MG/DL TRIGLYCERIDES (test code = 2232) 63 MG/DL HDL CHOLESTEROL (test code = 2220) 87 MG/DL CALC LDL CHOL (test code = 2237) 73 MG/DL RISK RATIO LDL/HDL (test cod e = 2238) 0.84 RATIO Delfino OrtaCOMPREHENSIVE METABOLIC [id number] 00:00:00* Test Item Value Reference Range Interpretation Comme nts GLUCOSE (test code = 2217) 80 MG/DL BUN (test code = 2208) 18 MG/DL CREATININE (test code = 2214) 1.06 MG/DL eGFR AMER. (test cod e = 59144) 67 ML/MIN/1.73 eGFR NON- AMER. (test code = 72113) 58 ML/MIN/1.73 CALC BUN/CREAT (test code = [...] = 2219) 54 U/L Delfino OrtaCBC W/AUTO [id number] 00:00:00* Test Item Value Reference Range Interpretation [...] ABS NUCLEATED RBCS (test cod e = 77506) 0.00 K/UL COMMENTS (test code = 1016) (NOTE) Delfino OrtaLIPID [id number] 00:00:00* Test Item Value Reference Range Interpretation Comme nts CHOLESTEROL (test code = 2210) 174 MG/DL TRIGLYCERIDES (test code = 2232) 63 MG/DL HDL CHOLESTEROL (test code = 2220) 87 MG/DL CALC LDL CHOL (test code = 2237) 73 MG/DL RISK RATIO LDL/HDL (test cod e = 2238) 0.84 RATIO [facility] [id number] 00:00:00* Test Item Value Reference Range Interpretation [...] ABS NUCLEATED RBCS (test cod e = 18464) 0.00 K/UL COMMENTS (test code = 1016) (NOTE) LIPID [id number] 00:00:00* Test Item Value Reference Range Interpretation Comme nts CHOLESTEROL (test code = 2210) 174 MG/DL TRIGLYCERIDES (test code = 2232) 63 MG/DL HDL CHOLESTEROL (test code = 2220) 87 MG/DL CALC LDL CHOL (test code = 2237) 73 MG/DL RISK RATIO LDL/HDL (test cod e = 2238) 0.84 RATIO SARS-CoV-2 (COVID-19) by RT-PCR (HIGH RISK)2020-01-21 00:00:00* Test Item Value Reference Range Interpretation Comme nts SARS-CoV-2 INTERPRETATION (t est code = 90195) NEGATIVE SOURCE (test code = 56333) NOT SPECIFIED SARS-CoV-2 (COVID-19) by RT-PCR (HIGH RISK)2020-01-21 00:00:00* Test Item Value Reference Range Interpretation Comme nts SARS-CoV-2 INTERPRETATION (t est code = 79539) NEGATIVE SOURCE (test code = 30879) NOT SPECIFIED SARS-CoV-2 (COVID-19) by RT-PCR (HIGH RISK)2020-01-21 00:00:00* Test Item Value Reference Range Interpretation Comme nts SARS-CoV-2 INTERPRETATION (t est code = 39924) NEGATIVE SOURCE (test code = 85866) NOT SPECIFIED SARS-CoV-2 (COVID-19) by RT-PCR (HIGH RISK)2020-01-21 00:00:00* Test Item Value Reference Range Interpretation Comme nts SARS-CoV-2 INTERPRETATION (t est code = 53947) NEGATIVE SOURCE (test code = 62801) NOT SPECIFIED Delfino F QblexgIBTR-YaX-0 (COVID-19) by RT-PCR (HIGH RISK)2020-01-21 00:00:00* Test Item Value Reference Range Interpretation Comme nts SARS-CoV-2 INTERPRETATION (t est code = 96554) NEGATIVE SOURCE (test code = 69226) NOT SPECIFIED Delfino F SrvvksGVVJ-NmA-5 (COVID-19) by RT-PCR (HIGH RISK)2020-01-21 00:00:00* Test Item Value Reference Range Interpretation Comme nts SARS-CoV-2 INTERPRETATION (t est code = 37243) NEGATIVE SOURCE (test code = 35227) NOT SPECIFIED Delfino F PqzfwtIZBN-HsQ-0 (COVID-19) by RT-PCR (HIGH RISK)2020-01-21 00:00:00* Test Item Value Reference Range Interpretation Comme nts SARS-CoV-2 INTERPRETATION (t est code = 80668) NEGATIVE SOURCE (test code = 32999) NOT SPECIFIED Delfino F GbfaaeWUQQ-VdP-6 (COVID-19) by RT-PCR (HIGH RISK)2020-01-21 00:00:00* Test Item Value Reference Range Interpretation Comme nts SARS-CoV-2 INTERPRETATION (t est code = 44213) NEGATIVE SOURCE (test code = 94186) NOT SPECIFIED Delfino Schumacher YhpjvuBKSC-SwZ-1 (COVID-19) by RT-PCR (HIGH RISK)2020-01-21 00:00:00* Test Item Value Reference Range Interpretation Comme nts SARS-CoV-2 INTERPRETATION (t est code = 31999) NEGATIVE SOURCE (test code = 17113) NOT SPECIFIED Delfino F GrklkoYCGQ-FeE-7 (COVID-19) by RT-PCR (HIGH RISK)2020-01-21 00:00:00* Test Item Value Reference Range Interpretation Comme nts SARS-CoV-2 INTERPRETATION (t est code = 08397) NEGATIVE SOURCE (test code = 93082) NOT SPECIFIED Delfino F UbloreJSXS-ZhQ-8 (COVID-19) by RT-PCR (HIGH RISK)2020-01-21 00:00:00* Test Item Value Reference Range Interpretation Comme nts SARS-CoV-2 INTERPRETATION (t est code = 92827) NEGATIVE SOURCE (test code = 47605) NOT SPECIFIED Delfino F UwnhzwREKT-CgJ-3 (COVID-19) by RT-PCR (HIGH RISK)2020-01-21 00:00:00* Test Item Value Reference Range Interpretation Comme nts SARS-CoV-2 INTERPRETATION (t est code = 10214) NEGATIVE SOURCE (test code = 36402) NOT SPECIFIED Delfino F KdewlrLLBB-NiL-1 (COVID-19) by RT-PCR (HIGH RISK)2020-01-21 00:00:00* Test Item Value Reference Range Interpretation Comme nts SARS-CoV-2 INTERPRETATION (t est code = 08231) NEGATIVE SOURCE (test code = 33731) NOT SPECIFIED Delfino F CvwlmmZFYC-JyL-2 (COVID-19) by RT-PCR (HIGH RISK)2020-01-21 00:00:00* Test Item Value Reference Range Interpretation Comme nts SARS-CoV-2 INTERPRETATION (t est code = 29771) NEGATIVE SOURCE (test code = 21239) NOT SPECIFIED Delfino F YxqrfeGSQQ-EzC-2 (COVID-19) by RT-PCR (HIGH RISK)2020-01-21 00:00:00* Test Item Value Reference Range Interpretation Comme nts SARS-CoV-2 INTERPRETATION (t est code = 70039) NEGATIVE SOURCE (test code = 04872) NOT SPECIFIED Delfino Schumacher JwqskuLQGZ-FfQ-7 (COVID-19) by RT-PCR (HIGH RISK)2020-01-21 00:00:00* Test Item Value Reference Range Interpretation Comme nts SARS-CoV-2 INTERPRETATION (t est code = 00749) NEGATIVE SOURCE (test code = 50397) NOT SPECIFIED Delfino Schumacher MdwuaiKMQQ-VkE-4 (COVID-19) by RT-PCR (HIGH RISK)2020-01-21 00:00:00* Test Item Value Reference Range Interpretation Comme nts SARS-CoV-2 INTERPRETATION (t est code = 20064) NEGATIVE SOURCE (test code = 74451) NOT SPECIFIED Delfino Schumacher HfshglNXCO-PyE-9 (COVID-19) by RT-PCR (HIGH RISK)2020-01-21 00:00:00* Test Item Value Reference Range Interpretation Comme nts SARS-CoV-2 INTERPRETATION (t est code = 82382) NEGATIVE SOURCE (test code = 99798) NOT SPECIFIED Delfino Schumacher TxbpsdHRWQ-NzY-4 (COVID-19) by RT-PCR (HIGH RISK)2020-01-21 00:00:00* Test Item Value Reference Range Interpretation Comme nts SARS-CoV-2 INTERPRETATION (t est code = 96118) NEGATIVE SOURCE (test code = 22478) NOT SPECIFIED Delfino Schumacher TyemdlRQYP-MpQ-7 (COVID-19) by RT-PCR (HIGH RISK)2020-01-21 00:00:00* Test Item Value Reference Range Interpretation Comme nts SARS-CoV-2 INTERPRETATION (t est code = 77494) NEGATIVE SOURCE (test code = 57697) NOT SPECIFIED Delfino Schumacher XnbwehYJMG-FfQ-1 (COVID-19) by RT-PCR (HIGH RISK)2020-01-21 00:00:00* Test Item Value Reference Range Interpretation Comme nts SARS-CoV-2 INTERPRETATION (t est code = 51526) NEGATIVE SOURCE (test code = 57253) NOT SPECIFIED Delfino F HiyjzyCVWN-WgR-7 (COVID-19) by RT-PCR (HIGH RISK)2020-01-21 00:00:00* Test Item Value Reference Range Interpretation Comme nts SARS-CoV-2 INTERPRETATION (t est code = 28748) NEGATIVE SOURCE (test code = 77843) NOT SPECIFIED Delfino Schumacher IxbhqsSUXG-WhH-8 (COVID-19) by RT-PCR (HIGH RISK)2020-01-21 00:00:00* Test Item Value Reference Range Interpretation Comme nts SARS-CoV-2 INTERPRETATION (t est code = 22198) NEGATIVE SOURCE (test code = 15354) NOT SPECIFIED Delfino F NkcndgMMVV-VfN-1 (COVID-19) by RT-PCR (HIGH RISK)2020-01-21 00:00:00* Test Item Value Reference Range Interpretation Comme nts SARS-CoV-2 INTERPRETATION (t est code = 83513) NEGATIVE SOURCE (test code = 10068) NOT SPECIFIED Delfino F NndjneMXPY-TfX-8 (COVID-19) by RT-PCR (HIGH RISK)2020-01-21 00:00:00* Test Item Value Reference Range Interpretation Comme nts SARS-CoV-2 INTERPRETATION (t est code = 33119) NEGATIVE SOURCE (test code = 33310) NOT SPECIFIED Delfino F EfaqtqQVOU-MlN-9 (COVID-19) by RT-PCR (HIGH RISK)2020-01-21 00:00:00* Test Item Value Reference Range Interpretation Comme nts SARS-CoV-2 INTERPRETATION (t est code = 72310) NEGATIVE SOURCE (test code = 34990) NOT SPECIFIED Delfino F PbsdwdQGMS-ZuH-1 (COVID-19) by RT-PCR (HIGH RISK)2020-01-21 00:00:00* Test Item Value Reference Range Interpretation Comme nts SARS-CoV-2 INTERPRETATION (t est code = 72052) NEGATIVE SOURCE (test code = 63457) NOT SPECIFIED Delfino F IlxzdkQFWI-YsD-1 (COVID-19) by RT-PCR (HIGH RISK)2020-01-21 00:00:00* Test Item Value Reference Range Interpretation Comme nts SARS-CoV-2 INTERPRETATION (t est code = 01917) NEGATIVE SOURCE (test code = 48875) NOT SPECIFIED Delfino F OymynsEAUA-IzI-7 (COVID-19) by RT-PCR (HIGH RISK)2020-01-21 00:00:00* Test Item Value Reference Range Interpretation Comme nts SARS-CoV-2 INTERPRETATION (t est code = 73818) NEGATIVE SOURCE (test code = 78285) NOT SPECIFIED Delfino F EtckyrZZYD-ZrY-4 (COVID-19) by RT-PCR (HIGH RISK)2020-01-21 00:00:00* Test Item Value Reference Range Interpretation Comme nts SARS-CoV-2 INTERPRETATION (t est code = 05646) NEGATIVE SOURCE (test code = 74142) NOT SPECIFIED Delfino Schumacher MycwiyBAUH-XfO-4 (COVID-19) by RT-PCR (HIGH RISK)2020-01-21 00:00:00* Test Item Value Reference Range Interpretation Comme nts SARS-CoV-2 INTERPRETATION (t est code = 37731) NEGATIVE SOURCE (test code = 59495) NOT SPECIFIED Delfino F LguxbhIPAW-EuC-9 (COVID-19) by RT-PCR (HIGH RISK)2020-01-21 00:00:00* Test Item Value Reference Range Interpretation Comme nts SARS-CoV-2 INTERPRETATION (t est code = 67704) NEGATIVE SOURCE (test code = 44227) NOT SPECIFIED Delfino F SuetvkZQCK-WaB-9 (COVID-19) by RT-PCR (HIGH RISK)2020-01-21 00:00:00* Test Item Value Reference Range Interpretation Comme nts SARS-CoV-2 INTERPRETATION (t est code = 41330) NEGATIVE SOURCE (test code = 36091) NOT SPECIFIED Delfino F BxnnzbTIBA-VsX-9 (COVID-19) by RT-PCR (HIGH RISK)2020-01-21 00:00:00* Test Item Value Reference Range Interpretation Comme nts SARS-CoV-2 INTERPRETATION (t est code = 17509) NEGATIVE SOURCE (test code = 60014) NOT SPECIFIED Delfino F OolxwfXGVJ-TsO-0 (COVID-19) by RT-PCR (HIGH RISK)2020-01-21 00:00:00* Test Item Value Reference Range Interpretation Comme nts SARS-CoV-2 INTERPRETATION (t est code = 17114) NEGATIVE SOURCE (test code = 10176) NOT SPECIFIED Delfino F AjhciwSDJK-DvU-4 (COVID-19) by RT-PCR (HIGH RISK)2020-01-21 00:00:00* Test Item Value Reference Range Interpretation Comme nts SARS-CoV-2 INTERPRETATION (t est code = 85189) NEGATIVE SOURCE (test code = 33458) NOT SPECIFIED Delfino F VorgczUVHT-DqI-9 (COVID-19) by RT-PCR (HIGH RISK)2020-01-21 00:00:00* Test Item Value Reference Range Interpretation Comme nts SARS-CoV-2 INTERPRETATION (t est code = 85052) NEGATIVE SOURCE (test code = 87738) NOT SPECIFIED Delfino AllenRS-CoV-2 (COVID-19) by RT-PCR (HIGH RISK)2020-01-21 00:00:00* Test Item Value Reference Range Interpretation Comme nts SARS-CoV-2 INTERPRETATION (t est code = 49864) NEGATIVE SOURCE (test code = 37936) NOT SPECIFIED CBC W/AUTO [id number] 00:00:00* Test Item Value Reference Range Interpretation [...] code = 1015) 186 K/UL COMPREHENSIVE METABOLIC [id number] 00:00:00* Test Item Value Reference Range Interpretation Comme nts GLUCOSE (test code = 2217) 86 MG/DL BUN (test code = 2208) 16 MG/DL CREATININE (test code = 2214) 0.90 MG/DL eGFR AMER. (test cod e = 69488) 83 ML/MIN/1.73 eGFR NON- AMER. (test code = 06231) 71 ML/MIN/1.73 CALC BUN/CREAT (test code = [...] code = 2219) 29 U/L CBC W/AUTO [id number] 00:00:00* Test Item Value Reference Range Interpretation [...] code = 1015) 186 K/UL COMPREHENSIVE METABOLIC [id number] 00:00:00* Test Item Value Reference Range Interpretation Comme nts GLUCOSE (test code = 2217) 86 MG/DL BUN (test code = 2208) 16 MG/DL CREATININE (test code = 2214) 0.90 MG/DL eGFR AMER. (test cod e = 07991) 83 ML/MIN/1.73 eGFR NON- AMER. (test code = 55715) 71 ML/MIN/1.73 CALC BUN/CREAT (test code = [...] code = 2219) 29 U/L CBC W/AUTO [id number] 00:00:00* Test Item Value Reference Range Interpretation [...] code = 1015) 186 K/UL COMPREHENSIVE METABOLIC [id number] 00:00:00* Test Item Value Reference Range Interpretation Comme nts GLUCOSE (test code = 2217) 86 MG/DL BUN (test code = 2208) 16 MG/DL CREATININE (test code = 2214) 0.90 MG/DL eGFR AMER. (test cod e = 77195) 83 ML/MIN/1.73 eGFR NON- AMER. (test code = 67571) 71 ML/MIN/1.73 CALC BUN/CREAT (test code = [...] code = 2219) 29 U/L CBC W/AUTO [id number] 00:00:00* Test Item Value Reference Range Interpretation [...] code = 1015) 186 K/UL CBC W/AUTO [id number] 00:00:00* Test Item Value Reference Range Interpretation [...] = 1015) 186 K/UL Delfino OrtaCOMPREHENSIVE METABOLIC [id number] 00:00:00* Test Item Value Reference Range Interpretation Comme nts GLUCOSE (test code = 2217) 86 MG/DL BUN (test code = 2208) 16 MG/DL CREATININE (test code = 2214) 0.90 MG/DL eGFR AMER. (test cod e = 62088) 83 ML/MIN/1.73 eGFR NON- AMER. (test code = 07497) 71 ML/MIN/1.73 CALC BUN/CREAT (test code = [...] = 2219) 29 U/L Delfino OrtaCBC W/AUTO [id number] 00:00:00* Test Item Value Reference Range Interpretation [...] = 1015) 186 K/UL Delfino OrtaCOMPREHENSIVE METABOLIC [id number] 00:00:00* Test Item Value Reference Range Interpretation Comme nts GLUCOSE (test code = 2217) 86 MG/DL BUN (test code = 2208) 16 MG/DL CREATININE (test code = 2214) 0.90 MG/DL eGFR AMER. (test cod e = 04875) 83 ML/MIN/1.73 eGFR NON- AMER. (test code = 47617) 71 ML/MIN/1.73 CALC BUN/CREAT (test code = [...] = 2219) 29 U/L Delfino OrtaCBC W/AUTO [id number] 00:00:00* Test Item Value Reference Range Interpretation [...] = 1015) 186 K/UL Delfino OrtaCBC W/AUTO [id number] 00:00:00* Test Item Value Reference Range Interpretation [...] = 1015) 186 K/UL Delfino OrtaCOMPREHENSIVE METABOLIC [id number] 00:00:00* Test Item Value Reference Range Interpretation Comme nts GLUCOSE (test code = 2217) 86 MG/DL BUN (test code = 2208) 16 MG/DL CREATININE (test code = 2214) 0.90 MG/DL eGFR AMER. (test cod e = 59273) 83 ML/MIN/1.73 eGFR NON- AMER. (test code = 93365) 71 ML/MIN/1.73 CALC BUN/CREAT (test code = [...] = 2219) 29 U/L Delfino OrtaCBC W/AUTO [id number] 00:00:00* Test Item Value Reference Range Interpretation [...] = 1015) 186 K/UL Delfino OrtaCOMPREHENSIVE METABOLIC [id number] 00:00:00* Test Item Value Reference Range Interpretation Comme nts GLUCOSE (test code = 2217) 86 MG/DL BUN (test code = 2208) 16 MG/DL CREATININE (test code = 2214) 0.90 MG/DL eGFR AMER. (test cod e = 43270) 83 ML/MIN/1.73 eGFR NON- AMER. (test code = 64825) 71 ML/MIN/1.73 CALC BUN/CREAT (test code = [...] = 2219) 29 U/L Delfino OrtaCBC W/AUTO [id number] 00:00:00* Test Item Value Reference Range Interpretation [...] = 1015) 186 K/UL Delfino OrtaCOMPREHENSIVE METABOLIC [id number] 00:00:00* Test Item Value Reference Range Interpretation Comme nts GLUCOSE (test code = 2217) 86 MG/DL BUN (test code = 2208) 16 MG/DL CREATININE (test code = 2214) 0.90 MG/DL eGFR AMER. (test cod e = 61559) 83 ML/MIN/1.73 eGFR NON- AMER. (test code = 29425) 71 ML/MIN/1.73 CALC BUN/CREAT (test code = [...] = 2219) 29 U/L Delfino OrtaCBC W/AUTO [id number] 00:00:00* Test Item Value Reference Range Interpretation [...] = 1015) 186 K/UL Delfino OrtaCOMPREHENSIVE METABOLIC [id number] 00:00:00* Test Item Value Reference Range Interpretation Comme nts GLUCOSE (test code = 2217) 86 MG/DL BUN (test code = 2208) 16 MG/DL CREATININE (test code = 2214) 0.90 MG/DL eGFR AMER. (test cod e = 13798) 83 ML/MIN/1.73 eGFR NON- AMER. (test code = 65034) 71 ML/MIN/1.73 CALC BUN/CREAT (test code = [...] = 2219) 29 U/L Delfino OrtaCBC W/AUTO [id number] 00:00:00* Test Item Value Reference Range Interpretation [...] = 1015) 186 K/UL Delfino OrtaCOMPREHENSIVE METABOLIC [id number] 00:00:00* Test Item Value Reference Range Interpretation Comme nts GLUCOSE (test code = 2217) 86 MG/DL BUN (test code = 2208) 16 MG/DL CREATININE (test code = 2214) 0.90 MG/DL eGFR AMER. (test cod e = 68431) 83 ML/MIN/1.73 eGFR NON- AMER. (test code = 75996) 71 ML/MIN/1.73 CALC BUN/CREAT (test code = [...] 2219) 29 U/L Delfino Endy YouCBC W/AUTO [id number] 00:00:00* Test Item Value Reference Range Interpretation [...] 1015) 186 K/UL Delfino F YouCOMPREHENSIVE METABOLIC [id number] 00:00:00* Test Item Value Reference Range Interpretation Comme nts GLUCOSE (test code = 2217) 86 MG/DL BUN (test code = 2208) 16 MG/DL CREATININE (test code = 2214) 0.90 MG/DL eGFR AMER. (test cod e = 99403) 83 ML/MIN/1.73 eGFR NON- AMER. (test code = 84659) 71 ML/MIN/1.73 CALC BUN/CREAT (test code = [...] = 2219) 29 U/L Delfino OrtaCBC W/AUTO [id number] 00:00:00* Test Item Value Reference Range Interpretation [...] = 1015) 186 K/UL Delfino OrtaCOMPREHENSIVE METABOLIC [id number] 00:00:00* Test Item Value Reference Range Interpretation Comme nts GLUCOSE (test code = 2217) 86 MG/DL BUN (test code = 2208) 16 MG/DL CREATININE (test code = 2214) 0.90 MG/DL eGFR AMER. (test cod e = 19695) 83 ML/MIN/1.73 eGFR NON- AMER. (test code = 51969) 71 ML/MIN/1.73 CALC BUN/CREAT (test code = [...] = 2219) 29 U/L Delfino OrtaCBC W/AUTO [id number] 00:00:00* Test Item Value Reference Range Interpretation [...] = 1015) 186 K/UL Delfino OrtaCOMPREHENSIVE METABOLIC [id number] 00:00:00* Test Item Value Reference Range Interpretation Comme nts GLUCOSE (test code = 2217) 86 MG/DL BUN (test code = 2208) 16 MG/DL CREATININE (test code = 2214) 0.90 MG/DL eGFR AMER. (test cod e = 47535) 83 ML/MIN/1.73 eGFR NON- AMER. (test code = 81814) 71 ML/MIN/1.73 CALC BUN/CREAT (test code = [...] 2219) 29 U/L Delfino Schumacher YouCBC W/AUTO [id number] 00:00:00* Test Item Value Reference Range Interpretation [...] 1015) 186 K/UL Delfino Schumacher YouCOMPREHENSIVE METABOLIC [id number] 00:00:00* Test Item Value Reference Range Interpretation Comme nts GLUCOSE (test code = 2217) 86 MG/DL BUN (test code = 2208) 16 MG/DL CREATININE (test code = 2214) 0.90 MG/DL eGFR AMER. (test cod e = 43227) 83 ML/MIN/1.73 eGFR NON- AMER. (test code = 83420) 71 ML/MIN/1.73 CALC BUN/CREAT (test code = [...] 2219) 29 U/L Delfino Endy YouCBC W/AUTO [id number] 00:00:00* Test Item Value Reference Range Interpretation [...] 1015) 186 K/UL Delfino F YouCOMPREHENSIVE METABOLIC [id number] 00:00:00* Test Item Value Reference Range Interpretation Comme nts GLUCOSE (test code = 2217) 86 MG/DL BUN (test code = 2208) 16 MG/DL CREATININE (test code = 2214) 0.90 MG/DL eGFR AMER. (test cod e = 38773) 83 ML/MIN/1.73 eGFR NON- AMER. (test code = 77348) 71 ML/MIN/1.73 CALC BUN/CREAT (test code = [...] ALT (test code = 2219) 29 U/L Deflino OrtaCBC W/AUTO [id number] 00:00:00* Test Item Value Reference Range Interpretation [...] = 1015) 186 K/UL Delfino OrtaCOMPREHENSIVE METABOLIC [id number] 00:00:00* Test Item Value Reference Range Interpretation Comme nts GLUCOSE (test code = 2217) 86 MG/DL BUN (test code = 2208) 16 MG/DL CREATININE (test code = 2214) 0.90 MG/DL eGFR AMER. (test cod e = 90805) 83 ML/MIN/1.73 eGFR NON- AMER. (test code = 06386) 71 ML/MIN/1.73 CALC BUN/CREAT (test code = [...] = 2219) 29 U/L Delfino OrtaCBC W/AUTO [id number] 00:00:00* Test Item Value Reference Range Interpretation [...] code = 1015) 186 K/UL Delfino Endy YouCOMPREHENSIVE METABOLIC [id number] 00:00:00* Test Item Value Reference Range Interpretation Comme nts GLUCOSE (test code = 2217) 86 MG/DL BUN (test code = 2208) 16 MG/DL CREATININE (test code = 2214) 0.90 MG/DL eGFR AMER. (test cod e = 53837) 83 ML/MIN/1.73 eGFR NON- AMER. (test code = 78103) 71 ML/MIN/1.73 CALC BUN/CREAT (test code = [...] = 2219) 29 U/L Delfino OrtaCBC W/AUTO [id number] 00:00:00* Test Item Value Reference Range Interpretation [...] = 1015) 186 K/UL Delfino OrtaCOMPREHENSIVE METABOLIC [id number] 00:00:00* Test Item Value Reference Range Interpretation Comme nts GLUCOSE (test code = 2217) 86 MG/DL BUN (test code = 2208) 16 MG/DL CREATININE (test code = 2214) 0.90 MG/DL eGFR AMER. (test cod e = 03823) 83 ML/MIN/1.73 eGFR NON- AMER. (test code = 74230) 71 ML/MIN/1.73 CALC BUN/CREAT (test code = [...] = 2219) 29 U/L Delfino OrtaCBC W/AUTO [id number] 00:00:00* Test Item Value Reference Range Interpretation [...] = 1015) 186 K/UL Delfino OrtaCOMPREHENSIVE METABOLIC [id number] 00:00:00* Test Item Value Reference Range Interpretation Comme nts GLUCOSE (test code = 2217) 86 MG/DL BUN (test code = 2208) 16 MG/DL CREATININE (test code = 2214) 0.90 MG/DL eGFR AMER. (test cod e = 49049) 83 ML/MIN/1.73 eGFR NON- AMER. (test code = 41529) 71 ML/MIN/1.73 CALC BUN/CREAT (test code = [...] = 2219) 29 U/L Delfino OrtaCBC W/AUTO [id number] 00:00:00* Test Item Value Reference Range Interpretation [...] = 1015) 186 K/UL Delfino OrtaCOMPREHENSIVE METABOLIC [id number] 00:00:00* Test Item Value Reference Range Interpretation Comme nts GLUCOSE (test code = 2217) 86 MG/DL BUN (test code = 2208) 16 MG/DL CREATININE (test code = 2214) 0.90 MG/DL eGFR AMER. (test cod e = 04709) 83 ML/MIN/1.73 eGFR NON- AMER. (test code = 39712) 71 ML/MIN/1.73 CALC BUN/CREAT (test code = [...] = 2219) 29 U/L Delfino OrtaCBC W/AUTO [id number] 00:00:00* Test Item Value Reference Range Interpretation [...] = 1015) 186 K/UL Delfino OrtaCOMPREHENSIVE METABOLIC [id number] 00:00:00* Test Item Value Reference Range Interpretation Comme nts GLUCOSE (test code = 2217) 86 MG/DL BUN (test code = 2208) 16 MG/DL CREATININE (test code = 2214) 0.90 MG/DL eGFR AMER. (test cod e = 10554) 83 ML/MIN/1.73 eGFR NON- AMER. (test code = 56585) 71 ML/MIN/1.73 CALC BUN/CREAT (test code = [...] = 2219) 29 U/L Delfino OrtaCBC W/AUTO [id number] 00:00:00* Test Item Value Reference Range Interpretation [...] = 1015) 186 K/UL Delfino OrtaCOMPREHENSIVE METABOLIC [id number] 00:00:00* Test Item Value Reference Range Interpretation Comme nts GLUCOSE (test code = 2217) 86 MG/DL BUN (test code = 2208) 16 MG/DL CREATININE (test code = 2214) 0.90 MG/DL eGFR AMER. (test cod e = 00241) 83 ML/MIN/1.73 eGFR NON- AMER. (test code = 20063) 71 ML/MIN/1.73 CALC BUN/CREAT (test code = [...] = 2219) 29 U/L Delfino OrtaCBC W/AUTO [id number] 00:00:00* Test Item Value Reference Range Interpretation [...] = 1015) 186 K/UL Delfino OrtaCOMPREHENSIVE METABOLIC [id number] 00:00:00* Test Item Value Reference Range Interpretation Comme nts GLUCOSE (test code = 2217) 86 MG/DL BUN (test code = 2208) 16 MG/DL CREATININE (test code = 2214) 0.90 MG/DL eGFR AMER. (test cod e = 44538) 83 ML/MIN/1.73 eGFR NON- AMER. (test code = 56356) 71 ML/MIN/1.73 CALC BUN/CREAT (test code = [...] = 2219) 29 U/L Delfino OrtaCBC W/AUTO [id number] 00:00:00* Test Item Value Reference Range Interpretation [...] = 1015) 186 K/UL Delfino OrtaCOMPREHENSIVE METABOLIC [id number] 00:00:00* Test Item Value Reference Range Interpretation Comme nts GLUCOSE (test code = 2217) 86 MG/DL BUN (test code = 2208) 16 MG/DL CREATININE (test code = 2214) 0.90 MG/DL eGFR AMER. (test cod e = 98828) 83 ML/MIN/1.73 eGFR NON- AMER. (test code = 87174) 71 ML/MIN/1.73 CALC BUN/CREAT (test code = [...] = 2219) 29 U/L Delfino OrtaCBC W/AUTO [id number] 00:00:00* Test Item Value Reference Range Interpretation [...] = 1015) 186 K/UL Delfino OrtaCOMPREHENSIVE METABOLIC [id number] 00:00:00* Test Item Value Reference Range Interpretation Comme nts GLUCOSE (test code = 2217) 86 MG/DL BUN (test code = 2208) 16 MG/DL CREATININE (test code = 2214) 0.90 MG/DL eGFR AMER. (test cod e = 91773) 83 ML/MIN/1.73 eGFR NON- AMER. (test code = 91781) 71 ML/MIN/1.73 CALC BUN/CREAT (test code = [...] = 2219) 29 U/L Delfino OrtaCBC W/AUTO [id number] 00:00:00* Test Item Value Reference Range Interpretation [...] = 1015) 186 K/UL Delfino OrtaCOMPREHENSIVE METABOLIC [id number] 00:00:00* Test Item Value Reference Range Interpretation Comme nts GLUCOSE (test code = 2217) 86 MG/DL BUN (test code = 2208) 16 MG/DL CREATININE (test code = 2214) 0.90 MG/DL eGFR AMER. (test cod e = 65779) 83 ML/MIN/1.73 eGFR NON- AMER. (test code = 03924) 71 ML/MIN/1.73 CALC BUN/CREAT (test code = [...] = 2219) 29 U/L Delfino OrtaCBC W/AUTO [id number] 00:00:00* Test Item Value Reference Range Interpretation [...] = 1015) 186 K/UL Delfino OrtaCOMPREHENSIVE METABOLIC [id number] 00:00:00* Test Item Value Reference Range Interpretation Comme nts GLUCOSE (test code = 2217) 86 MG/DL BUN (test code = 2208) 16 MG/DL CREATININE (test code = 2214) 0.90 MG/DL eGFR AMER. (test cod e = 44840) 83 ML/MIN/1.73 eGFR NON- AMER. (test code = 09010) 71 ML/MIN/1.73 CALC BUN/CREAT (test code = [...] = 2219) 29 U/L Delfino OrtaCBC W/AUTO [id number] 00:00:00* Test Item Value Reference Range Interpretation [...] = 1015) 186 K/UL Delfino OrtaCOMPREHENSIVE METABOLIC [id number] 00:00:00* Test Item Value Reference Range Interpretation Comme nts GLUCOSE (test code = 2217) 86 MG/DL BUN (test code = 2208) 16 MG/DL CREATININE (test code = 2214) 0.90 MG/DL eGFR AMER. (test cod e = 26671) 83 ML/MIN/1.73 eGFR NON- AMER. (test code = 96229) 71 ML/MIN/1.73 CALC BUN/CREAT (test code = [...] = 2219) 29 U/L Delfino OrtaCBC W/AUTO [id number] 00:00:00* Test Item Value Reference Range Interpretation [...] 1015) 186 K/UL Delfino Schumacher YouCOMPREHENSIVE METABOLIC [id number] 00:00:00* Test Item Value Reference Range Interpretation Comme nts GLUCOSE (test code = 2217) 86 MG/DL BUN (test code = 2208) 16 MG/DL CREATININE (test code = 2214) 0.90 MG/DL eGFR AMER. (test cod e = 28591) 83 ML/MIN/1.73 eGFR NON- AMER. (test code = 92531) 71 ML/MIN/1.73 CALC BUN/CREAT (test code = [...] 2219) 29 U/L Delfino Schumacher YouCBC W/AUTO [id number] 00:00:00* Test Item Value Reference Range Interpretation [...] = 1015) 186 K/UL Delfino OrtaCOMPREHENSIVE METABOLIC [id number] 00:00:00* Test Item Value Reference Range Interpretation Comme nts GLUCOSE (test code = 2217) 86 MG/DL BUN (test code = 2208) 16 MG/DL CREATININE (test code = 2214) 0.90 MG/DL eGFR AMER. (test cod e = 51673) 83 ML/MIN/1.73 eGFR NON- AMER. (test code = 04777) 71 ML/MIN/1.73 CALC BUN/CREAT (test code = [...] = 2219) 29 U/L Delfino OrtaCBC W/AUTO [id number] 00:00:00* Test Item Value Reference Range Interpretation [...] = 1015) 186 K/UL Delfino OrtaCOMPREHENSIVE METABOLIC [id number] 00:00:00* Test Item Value Reference Range Interpretation Comme nts GLUCOSE (test code = 2217) 86 MG/DL BUN (test code = 2208) 16 MG/DL CREATININE (test code = 2214) 0.90 MG/DL eGFR AMER. (test cod e = 21466) 83 ML/MIN/1.73 eGFR NON- AMER. (test code = 19780) 71 ML/MIN/1.73 CALC BUN/CREAT (test code = [...] = 2219) 29 U/L Delfino OrtaCBC W/AUTO [id number] 00:00:00* Test Item Value Reference Range Interpretation [...] = 1015) 186 K/UL Delfino OrtaCOMPREHENSIVE METABOLIC [id number] 00:00:00* Test Item Value Reference Range Interpretation Comme nts GLUCOSE (test code = 2217) 86 MG/DL BUN (test code = 2208) 16 MG/DL CREATININE (test code = 2214) 0.90 MG/DL eGFR AMER. (test cod e = 10452) 83 ML/MIN/1.73 eGFR NON- AMER. (test code = 36286) 71 ML/MIN/1.73 CALC BUN/CREAT (test code = [...] = 2219) 29 U/L Delfino OrtaCBC W/AUTO [id number] 00:00:00* Test Item Value Reference Range Interpretation [...] 1015) 186 K/UL Delfino Schumacher YouCOMPREHENSIVE METABOLIC [id number] 00:00:00* Test Item Value Reference Range Interpretation Comme nts GLUCOSE (test code = 2217) 86 MG/DL BUN (test code = 2208) 16 MG/DL CREATININE (test code = 2214) 0.90 MG/DL eGFR AMER. (test cod e = 57444) 83 ML/MIN/1.73 eGFR NON- AMER. (test code = 62589) 71 ML/MIN/1.73 CALC BUN/CREAT (test code = [...] 2219) 29 U/L Delfino Schumacher YouCBC W/AUTO [id number] 00:00:00* Test Item Value Reference Range Interpretation [...] = 1015) 186 K/UL Delfino OrtaCOMPREHENSIVE METABOLIC [id number] 00:00:00* Test Item Value Reference Range Interpretation Comme nts GLUCOSE (test code = 2217) 86 MG/DL BUN (test code = 2208) 16 MG/DL CREATININE (test code = 2214) 0.90 MG/DL eGFR AMER. (test cod e = 11338) 83 ML/MIN/1.73 eGFR NON- AMER. (test code = 06028) 71 ML/MIN/1.73 CALC BUN/CREAT (test code = [...] = 2219) 29 U/L Delfino OrtaCBC W/AUTO [id number] 00:00:00* Test Item Value Reference Range Interpretation [...] = 1015) 186 K/UL Delfino OrtaCOMPREHENSIVE METABOLIC [id number] 00:00:00* Test Item Value Reference Range Interpretation Comme nts GLUCOSE (test code = 2217) 86 MG/DL BUN (test code = 2208) 16 MG/DL CREATININE (test code = 2214) 0.90 MG/DL eGFR AMER. (test cod e = 67147) 83 ML/MIN/1.73 eGFR NON- AMER. (test code = 31582) 71 ML/MIN/1.73 CALC BUN/CREAT (test code = [...] = 2219) 29 U/L Delfino OrtaCBC W/AUTO [id number] 00:00:00* Test Item Value Reference Range Interpretation [...] 1015) 186 K/UL Delfino Schumacher AustinCOMPREHENSIVE METABOLIC [id number] 00:00:00* Test Item Value Reference Range Interpretation Comme nts GLUCOSE (test code = 2217) 86 MG/DL BUN (test code = 2208) 16 MG/DL CREATININE (test code = 2214) 0.90 MG/DL eGFR AMER. (test cod e = 17704) 83 ML/MIN/1.73 eGFR NON- AMER. (test code = 05797) 71 ML/MIN/1.73 CALC BUN/CREAT (test code = [...] 2219) 29 U/L Delfino Schumacher AustinCOMPREHENSIVE METABOLIC [id number] 00:00:00* Test Item Value Reference Range Interpretation Comme nts GLUCOSE (test code = 2217) 86 MG/DL BUN (test code = 2208) 16 MG/DL CREATININE (test code = 2214) 0.90 MG/DL eGFR AMER. (test cod e = 21912) 83 ML/MIN/1.73 eGFR NON- AMER. (test code = 04792) 71 ML/MIN/1.73 CALC BUN/CREAT (test code = [...] code = 2219) 29 U/L Delfino Endy KinmundyCOMPREHENSIVE METABOLIC [id number] 00:00:00* Test Item Value Reference Range Interpretation Comme nts GLUCOSE (test code = 2217) 86 MG/DL BUN (test code = 2208) 16 MG/DL CREATININE (test code = 2214) 0.90 MG/DL eGFR AMER. (test cod e = 71767) 83 ML/MIN/1.73 eGFR NON- AMER. (test code = 34676) 71 ML/MIN/1.73 CALC BUN/CREAT (test code = [...] code = 2219) 29 U/L CBC W/AUTO [id number] 00:00:00* Test Item Value Reference Range Interpretation [...] (test code = 1016) (NOTE) CBC W/AUTO [id number] 00:00:00* Test Item Value Reference Range Interpretation [...] (test code = 1016) (NOTE) CBC W/AUTO [id number] 00:00:00* Test Item Value Reference Range Interpretation [...] (test code = 1016) (NOTE) CBC W/AUTO [id number] 00:00:00* Test Item Value Reference Range Interpretation [...] code = 1016) (NOTE) Delfino OrtaCBC W/AUTO [id number] 00:00:00* Test Item Value Reference Range Interpretation [...] (test code = 1016) (NOTE) Delfino Schumacher [facility] W/AUTO [id number] 00:00:00* Test Item Value Reference Range Interpretation [...] (test code = 1016) (NOTE) Delfino Schumacher [facility] W/AUTO [id number] 00:00:00* Test Item Value Reference Range Interpretation [...] code = 1016) (NOTE) Delfino OrtaC W/AUTO [id number] 00:00:00* Test Item Value Reference Range Interpretation [...] code = 1016) (NOTE) Delfino OrtaC W/AUTO [id number] 00:00:00* Test Item Value Reference Range Interpretation [...] COMMENTS (test code = 1016) (NOTE) [facility] [id number] 00:00:00* Test Item Value Reference Range Interpretation [...] (test code = 1016) (NOTE) Delfino Schumacher [facility]/AUTO [id number] 00:00:00* Test Item Value Reference Range Interpretation [...] (test code = 1016) (NOTE) Delfino Endy [facility] W/AUTO [id number] 00:00:00* Test Item Value Reference Range Interpretation [...] (test code = 1016) (NOTE) Delfino Schumacher KinmundyCBC W/AUTO [id number] 00:00:00* Test Item Value Reference Range Interpretation [...] code = 1016) (NOTE) Delfino OrtaCBC W/AUTO [id number] 00:00:00* Test Item Value Reference Range Interpretation [...] code = 1016) (NOTE) Delfino OrtaC W/AUTO [id number] 00:00:00* Test Item Value Reference Range Interpretation [...] COMMENTS (test code = 1016) (NOTE) [facility] [id number] 00:00:00* Test Item Value Reference Range Interpretation [...] COMMENTS (test code = 1016) (NOTE) [facility] [id number] 00:00:00* Test Item Value Reference Range Interpretation [...] (test code = 1016) (NOTE) Delfino Schumacher [facility] W/AUTO [id number] 00:00:00* Test Item Value Reference Range Interpretation [...] (test code = 1016) (NOTE) Delfino Schumacher [facility] W/AUTO [id number] 00:00:00* Test Item Value Reference Range Interpretation [...] (test code = 1016) (NOTE) Delfino Schumacher [facility] W/AUTO [id number] 00:00:00* Test Item Value Reference Range Interpretation [...] (test code = 1016) (NOTE) Delfino Schumacher [facility] W/AUTO [id number] 00:00:00* Test Item Value Reference Range Interpretation [...] (test code = 1016) (NOTE) Delfino Schumacher [facility] W/AUTO [id number] 00:00:00* Test Item Value Reference Range Interpretation [...] COMMENTS (test code = 1016) (NOTE) [facility] [id number] 00:00:00* Test Item Value Reference Range Interpretation [...] code = 1016) (NOTE) Delfino OrtaCBC W/AUTO [id number] 00:00:00* Test Item Value Reference Range Interpretation [...] code = 1016) (NOTE) Delfino OrtaC W/AUTO [id number] 00:00:00* Test Item Value Reference Range Interpretation [...] (test code = 1016) (NOTE) Delfino Schumacher KinmundyCBC W/AUTO [id number] 00:00:00* Test Item Value Reference Range Interpretation [...] (test code = 1016) (NOTE) [facility] [id number] 00:00:00* Test Item Value Reference Range Interpretation [...] (test code = 1016) (NOTE) Delfino Schumacher [facility] W/AUTO [id number] 00:00:00* Test Item Value Reference Range Interpretation [...] (test code = 1016) (NOTE) Delfino Schumacher [facility] W/AUTO [id number] 00:00:00* Test Item Value Reference Range Interpretation [...] (test code = 1016) (NOTE) Delfino Schumacher [facility] W/AUTO [id number] 00:00:00* Test Item Value Reference Range Interpretation [...] code = 1016) (NOTE) Delfino OrtaCBC W/AUTO [id number] 00:00:00* Test Item Value Reference Range Interpretation [...] code = 1016) (NOTE) Delfino OrtaC W/AUTO [id number] 00:00:00* Test Item Value Reference Range Interpretation [...] code = 1016) (NOTE) Delfino OrtaCBC W/AUTO [id number] 00:00:00* Test Item Value Reference Range Interpretation [...] (test code = 1016) (NOTE) Delfino Endy [facility] W/AUTO [id number] 00:00:00* Test Item Value Reference Range Interpretation [...] (test code = 1016) (NOTE) Delfino Endy [facility] W/AUTO [id number] 00:00:00* Test Item Value Reference Range Interpretation [...] (test code = 1016) (NOTE) [facility] [id number] 00:00:00* Test Item Value Reference Range Interpretation [...] (test code = 1016) (NOTE) Delfino Schumacher [facility] W/AUTO [id number] 00:00:00* Test Item Value Reference Range Interpretation [...] (test code = 1016) (NOTE) [facility]elf[facility]acher [facility] [id number] 00:00:00* Test Item Value Reference Range Interpretation [...] (test code = 1016) (NOTE) CBC W/AUTO [id number] 00:00:00* Test Item Value Reference Range Interpretation [...] code = 1016) (NOTE) VAGINAL PATHOGENS DNA [id number] 00:00:00* Test Item Value Reference Range Interpretation Comme nts DIANNA SPECIES (test code = ) NEGATIVE G. VAGINALIS (test code = ) POSITIVE T. VAGINALIS (test code = ) NEGATIVE COMPREHENSIVE METABOLIC [id number] 00:00:00* Test Item Value Reference Range Interpretation Comme nts GLUCOSE (test code = 2217) 92 MG/DL BUN (test code = 2208) 20 MG/DL CREATININE (test code = 2214) 1.31 MG/DL eGFR AMER. (test cod e = 44386) 53 ML/MIN/1.73 eGFR NON- AMER. (test code = 01817) 45 ML/MIN/1.73 CALC BUN/CREAT (test code = [...] code = 2219) 16 U/L CBC W/AUTO [id number] 00:00:00* Test Item Value Reference Range Interpretation [...] code = 1016) (NOTE) VAGINAL PATHOGENS DNA [id number] 00:00:00* Test Item Value Reference Range Interpretation Comme nts DIANNA SPECIES (test code = ) NEGATIVE G. VAGINALIS (test code = ) POSITIVE T. VAGINALIS (test code = ) NEGATIVE COMPREHENSIVE METABOLIC [id number] 00:00:00* Test Item Value Reference Range Interpretation Comme nts GLUCOSE (test code = 2217) 92 MG/DL BUN (test code = 2208) 20 MG/DL CREATININE (test code = 2214) 1.31 MG/DL eGFR AMER. (test cod e = 33667) 53 ML/MIN/1.73 eGFR NON- AMER. (test code = 53621) 45 ML/MIN/1.73 CALC BUN/CREAT (test code = [...] code = 2219) 16 U/L CBC W/AUTO [id number] 00:00:00* Test Item Value Reference Range Interpretation [...] code = 1016) (NOTE) VAGINAL PATHOGENS DNA [id number] 00:00:00* Test Item Value Reference Range Interpretation Comme nts DIANNA SPECIES (test code = ) NEGATIVE G. VAGINALIS (test code = ) POSITIVE T. VAGINALIS (test code = ) NEGATIVE COMPREHENSIVE METABOLIC [id number] 00:00:00* Test Item Value Reference Range Interpretation Comme nts GLUCOSE (test code = 2217) 92 MG/DL BUN (test code = 2208) 20 MG/DL CREATININE (test code = 2214) 1.31 MG/DL eGFR AMER. (test cod e = 78826) 53 ML/MIN/1.73 eGFR NON- AMER. (test code = 23506) 45 ML/MIN/1.73 CALC BUN/CREAT (test code = [...] code = 2219) 16 U/L CBC W/AUTO [id number] 00:00:00* Test Item Value Reference Range Interpretation [...] (test code = 1016) (NOTE) COMPREHENSIVE METABOLIC [id number] 00:00:00* Test Item Value Reference Range Interpretation Comme nts GLUCOSE (test code = 2217) 92 MG/DL BUN (test code = 2208) 20 MG/DL CREATININE (test code = 2214) 1.31 MG/DL eGFR AMER. (test cod e = 04584) 53 ML/MIN/1.73 eGFR NON- AMER. (test code = 66496) 45 ML/MIN/1.73 CALC BUN/CREAT (test code = [...] 2219) 16 U/L Delfino F YouCBC W/AUTO [id number] 00:00:00* Test Item Value Reference Range Interpretation [...] = 1016) (NOTE) Delfino OrtaVAGINAL PATHOGENS DNA [id number] 00:00:00* Test Item Value Reference Range Interpretation Comme nts DIANNA SPECIES (test code = ) NEGATIVE G. VAGINALIS (test code = 23025) POSITIVE T. VAGINALIS (test code = 27301) NEGATIVE Delfino OrtaVAGINAL PATHOGENS DNA [id number] 00:00:00* Test Item Value Reference Range Interpretation Comme nts DIANNA SPECIES (test code = 84660) NEGATIVE G. VAGINALIS (test code = 70721) POSITIVE T. VAGINALIS (test code = 19078) NEGATIVE Delfino OrtaCOMPREHENSIVE METABOLIC [id number] 00:00:00* Test Item Value Reference Range Interpretation Comme nts GLUCOSE (test code = 2217) 92 MG/DL BUN (test code = 2208) 20 MG/DL CREATININE (test code = 2214) 1.31 MG/DL eGFR AMER. (test cod e = 05909) 53 ML/MIN/1.73 eGFR NON- AMER. (test code = 66716) 45 ML/MIN/1.73 CALC BUN/CREAT (test code = [...] 2219) 16 U/L Delfino Schumacher YouCBC W/AUTO [id number] 00:00:00* Test Item Value Reference Range Interpretation [...] 1016) (NOTE) Delfino Schumacher YouVAGINAL PATHOGENS DNA [id number] 00:00:00* Test Item Value Reference Range Interpretation Comme nts DIANNA SPECIES (test code = ) NEGATIVE G. VAGINALIS (test code = ) POSITIVE T. VAGINALIS (test code = ) NEGATIVE Delfino OrtaCOMPREHENSIVE METABOLIC [id number] 00:00:00* Test Item Value Reference Range Interpretation Comme nts GLUCOSE (test code = 2217) 92 MG/DL BUN (test code = 2208) 20 MG/DL CREATININE (test code = 2214) 1.31 MG/DL eGFR AMER. (test cod e = 79582) 53 ML/MIN/1.73 eGFR NON- AMER. (test code = 27610) 45 ML/MIN/1.73 CALC BUN/CREAT (test code = [...] = 2219) 16 U/L Delfino OrtaCBC W/AUTO [id number] 00:00:00* Test Item Value Reference Range Interpretation [...] = 1016) (NOTE) Delfino OrtaVAGINAL PATHOGENS DNA [id number] 00:00:00* Test Item Value Reference Range Interpretation Comme nts DIANNA SPECIES (test code = 06778) NEGATIVE G. VAGINALIS (test code = ) POSITIVE T. VAGINALIS (test code = ) NEGATIVE Delfino Schumacher AustinCOMPREHENSIVE METABOLIC [id number] 00:00:00* Test Item Value Reference Range Interpretation Comme nts GLUCOSE (test code = 2217) 92 MG/DL BUN (test code = 2208) 20 MG/DL CREATININE (test code = 2214) 1.31 MG/DL eGFR AMER. (test cod e = 83931) 53 ML/MIN/1.73 eGFR NON- AMER. (test code = 49807) 45 ML/MIN/1.73 CALC BUN/CREAT (test code = [...] 2219) 16 U/L Delfino Schumacher AustinCOMPREHENSIVE METABOLIC [id number] 00:00:00* Test Item Value Reference Range Interpretation Comme nts GLUCOSE (test code = 2217) 92 MG/DL BUN (test code = 2208) 20 MG/DL CREATININE (test code = 2214) 1.31 MG/DL eGFR AMER. (test cod e = 71168) 53 ML/MIN/1.73 eGFR NON- AMER. (test code = 31576) 45 ML/MIN/1.73 CALC BUN/CREAT (test code = [...] = 2219) 16 U/L Delfino OrtaCBC W/AUTO [id number] 00:00:00* Test Item Value Reference Range Interpretation [...] 1016) (NOTE) Delfino Schumacher YouVAGINAL PATHOGENS DNA [id number] 00:00:00* Test Item Value Reference Range Interpretation Comme nts DIANNA SPECIES (test code = ) NEGATIVE G. VAGINALIS (test code = ) POSITIVE T. VAGINALIS (test code = ) NEGATIVE Delfino OrtaCOMPREHENSIVE METABOLIC [id number] 00:00:00* Test Item Value Reference Range Interpretation Comme nts GLUCOSE (test code = 2217) 92 MG/DL BUN (test code = 2208) 20 MG/DL CREATININE (test code = 2214) 1.31 MG/DL eGFR AMER. (test cod e = 77510) 53 ML/MIN/1.73 eGFR NON- AMER. (test code = 16505) 45 ML/MIN/1.73 CALC BUN/CREAT (test code = [...] code = 2219) 16 U/L Delfino Schumacher [facility] W/AUTO [id number] 00:00:00* Test Item Value Reference Range Interpretation [...] (test code = 1016) (NOTE) Delfino Schumacher [facility] W/AUTO [id number] 00:00:00* Test Item Value Reference Range Interpretation [...] = 1016) (NOTE) Delfino OrtaVAGINAL PATHOGENS DNA [id number] 00:00:00* Test Item Value Reference Range Interpretation Comme nts DIANNA SPECIES (test code = ) NEGATIVE G. VAGINALIS (test code = ) POSITIVE T. VAGINALIS (test code = ) NEGATIVE Delfino OrtaCOMPREHENSIVE METABOLIC [id number] 00:00:00* Test Item Value Reference Range Interpretation Comme nts GLUCOSE (test code = 2217) 92 MG/DL BUN (test code = 2208) 20 MG/DL CREATININE (test code = 2214) 1.31 MG/DL eGFR AMER. (test cod e = 32326) 53 ML/MIN/1.73 eGFR NON- AMER. (test code = 86466) 45 ML/MIN/1.73 CALC BUN/CREAT (test code = [...] = 2219) 16 U/L Delfino OrtaCBC W/AUTO [id number] 00:00:00* Test Item Value Reference Range Interpretation [...] = 1016) (NOTE) Delfino OrtaVAGINAL PATHOGENS DNA [id number] 00:00:00* Test Item Value Reference Range Interpretation Comme nts DIANNA SPECIES (test code = ) NEGATIVE G. VAGINALIS (test code = ) POSITIVE T. VAGINALIS (test code = ) NEGATIVE Delfino OrtaCOMPREHENSIVE METABOLIC [id number] 00:00:00* Test Item Value Reference Range Interpretation Comme nts GLUCOSE (test code = 2217) 92 MG/DL BUN (test code = 2208) 20 MG/DL CREATININE (test code = 2214) 1.31 MG/DL eGFR AMER. (test cod e = 15633) 53 ML/MIN/1.73 eGFR NON- AMER. (test code = 18344) 45 ML/MIN/1.73 CALC BUN/CREAT (test code = [...] = 2219) 16 U/L Delfino OrtaCBC W/AUTO [id number] 00:00:00* Test Item Value Reference Range Interpretation [...] = 1016) (NOTE) Delfino OrtaVAGINAL PATHOGENS DNA [id number] 00:00:00* Test Item Value Reference Range Interpretation Comme nts DIANNA SPECIES (test code = ) NEGATIVE G. VAGINALIS (test code = 75936) POSITIVE T. VAGINALIS (test code = 78872) NEGATIVE Delfino OrtaCOMPREHENSIVE METABOLIC [id number] 00:00:00* Test Item Value Reference Range Interpretation Comme nts GLUCOSE (test code = 2217) 92 MG/DL BUN (test code = 2208) 20 MG/DL CREATININE (test code = 2214) 1.31 MG/DL eGFR AMER. (test cod e = 48287) 53 ML/MIN/1.73 eGFR NON- AMER. (test code = 03689) 45 ML/MIN/1.73 CALC BUN/CREAT (test code = [...] = 2219) 16 U/L Delfino OrtaCBC W/AUTO [id number] 00:00:00* Test Item Value Reference Range Interpretation [...] = 1016) (NOTE) Delfino OrtaVAGINAL PATHOGENS DNA [id number] 00:00:00* Test Item Value Reference Range Interpretation Comme nts DIANNA SPECIES (test code = ) NEGATIVE G. VAGINALIS (test code = ) POSITIVE T. VAGINALIS (test code = ) NEGATIVE Delfino OrtaCOMPREHENSIVE METABOLIC [id number] 00:00:00* Test Item Value Reference Range Interpretation Comme nts GLUCOSE (test code = 2217) 92 MG/DL BUN (test code = 2208) 20 MG/DL CREATININE (test code = 2214) 1.31 MG/DL eGFR AMER. (test cod e = 03769) 53 ML/MIN/1.73 eGFR NON- AMER. (test code = 68616) 45 ML/MIN/1.73 CALC BUN/CREAT (test code = [...] code = 2219) 16 U/L [facility] [id number] 00:00:00* Test Item Value Reference Range Interpretation [...] = 1016) (NOTE) Delfino OrtaVAGINAL PATHOGENS DNA [id number] 00:00:00* Test Item Value Reference Range Interpretation Comme nts DIANNA SPECIES (test code = ) NEGATIVE G. VAGINALIS (test code = ) POSITIVE T. VAGINALIS (test code = ) NEGATIVE Delfino OrtaCOMPREHENSIVE METABOLIC [id number] 00:00:00* Test Item Value Reference Range Interpretation Comme nts GLUCOSE (test code = 2217) 92 MG/DL BUN (test code = 2208) 20 MG/DL CREATININE (test code = 2214) 1.31 MG/DL eGFR AMER. (test cod e = 52767) 53 ML/MIN/1.73 eGFR NON- AMER. (test code = 22940) 45 ML/MIN/1.73 CALC BUN/CREAT (test code = [...] = 2219) 16 U/L Delfino OrtaCBC W/AUTO [id number] 00:00:00* Test Item Value Reference Range Interpretation [...] 1016) (NOTE) Delfino Schumacher YouVAGINAL PATHOGENS DNA [id number] 00:00:00* Test Item Value Reference Range Interpretation Comme nts DIANNA SPECIES (test code = ) NEGATIVE G. VAGINALIS (test code = ) POSITIVE T. VAGINALIS (test code = ) NEGATIVE Delfino OrtaCOMPREHENSIVE METABOLIC [id number] 00:00:00* Test Item Value Reference Range Interpretation Comme nts GLUCOSE (test code = 2217) 92 MG/DL BUN (test code = 2208) 20 MG/DL CREATININE (test code = 2214) 1.31 MG/DL eGFR AMER. (test cod e = 39541) 53 ML/MIN/1.73 eGFR NON- AMER. (test code = 57296) 45 ML/MIN/1.73 CALC BUN/CREAT (test code = [...] = 2219) 16 U/L Delfino OrtaCBC W/AUTO [id number] 00:00:00* Test Item Value Reference Range Interpretation [...] 1016) (NOTE) Delfino Schumacher [facility]VAGIN[facility] PATHOGENS DNA [id number] 00:00:00* Test Item Value Reference Range Interpretation Comme nts DIANNA SPECIES (test code = ) NEGATIVE G. VAGINALIS (test code = ) POSITIVE T. VAGINALIS (test code = ) NEGATIVE Delfino Endy YouCOMPREHENSIVE METABOLIC [id number] 00:00:00* Test Item Value Reference Range Interpretation Comme nts GLUCOSE (test code = 2217) 92 MG/DL BUN (test code = 2208) 20 MG/DL CREATININE (test code = 2214) 1.31 MG/DL eGFR AMER. (test cod e = 27309) 53 ML/MIN/1.73 eGFR NON- AMER. (test code = 99814) 45 ML/MIN/1.73 CALC BUN/CREAT (test code = [...] = 2219) 16 U/L Delfino OrtaCBC W/AUTO [id number] 00:00:00* Test Item Value Reference Range Interpretation [...] = 1016) (NOTE) Delfino OrtaVAGINAL PATHOGENS DNA [id number] 00:00:00* Test Item Value Reference Range Interpretation Comme nts DIANNA SPECIES (test code = 94007) NEGATIVE G. VAGINALIS (test code = 12061) POSITIVE T. VAGINALIS (test code = 98566) NEGATIVE Delfino OrtaCOMPREHENSIVE METABOLIC [id number] 00:00:00* Test Item Value Reference Range Interpretation Comme nts GLUCOSE (test code = 2217) 92 MG/DL BUN (test code = 2208) 20 MG/DL CREATININE (test code = 2214) 1.31 MG/DL eGFR AMER. (test cod e = 25304) 53 ML/MIN/1.73 eGFR NON- AMER. (test code = 90519) 45 ML/MIN/1.73 CALC BUN/CREAT (test code = [...] 2219) 16 U/L Delfino Schumacher YouCBC W/AUTO [id number] 00:00:00* Test Item Value Reference Range Interpretation [...] 1016) (NOTE) Delfino Schumacher YouVAGINAL PATHOGENS DNA [id number] 00:00:00* Test Item Value Reference Range Interpretation Comme nts DIANNA SPECIES (test code = ) NEGATIVE G. VAGINALIS (test code = ) POSITIVE T. VAGINALIS (test code = ) NEGATIVE Delfino Schumacher YouCOMPREHENSIVE METABOLIC [id number] 00:00:00* Test Item Value Reference Range Interpretation Comme nts GLUCOSE (test code = 2217) 92 MG/DL BUN (test code = 2208) 20 MG/DL CREATININE (test code = 2214) 1.31 MG/DL eGFR AMER. (test cod e = 56836) 53 ML/MIN/1.73 eGFR NON- AMER. (test code = 06489) 45 ML/MIN/1.73 CALC BUN/CREAT (test code = [...] = 2219) 16 U/L Delfino OrtaCBC W/AUTO [id number] 00:00:00* Test Item Value Reference Range Interpretation [...] = 1016) (NOTE) Delfino OrtaVAGINAL PATHOGENS DNA [id number] 00:00:00* Test Item Value Reference Range Interpretation Comme nts DIANNA SPECIES (test code = ) NEGATIVE G. VAGINALIS (test code = ) POSITIVE T. VAGINALIS (test code = ) NEGATIVE Delfino OrtaCOMPREHENSIVE METABOLIC [id number] 00:00:00* Test Item Value Reference Range Interpretation Comme nts GLUCOSE (test code = 2217) 92 MG/DL BUN (test code = 2208) 20 MG/DL CREATININE (test code = 2214) 1.31 MG/DL eGFR AMER. (test cod e = 21147) 53 ML/MIN/1.73 eGFR NON- AMER. (test code = 60952) 45 ML/MIN/1.73 CALC BUN/CREAT (test code = [...] = 2219) 16 U/L Delfino OrtaCBC W/AUTO [id number] 00:00:00* Test Item Value Reference Range Interpretation [...] = 1016) (NOTE) Delfino OrtaVAGINAL PATHOGENS DNA [id number] 00:00:00* Test Item Value Reference Range Interpretation Comme nts DIANNA SPECIES (test code = ) NEGATIVE G. VAGINALIS (test code = ) POSITIVE T. VAGINALIS (test code = ) NEGATIVE Delfino OrtaCOMPREHENSIVE METABOLIC [id number] 00:00:00* Test Item Value Reference Range Interpretation Comme nts GLUCOSE (test code = 2217) 92 MG/DL BUN (test code = 2208) 20 MG/DL CREATININE (test code = 2214) 1.31 MG/DL eGFR AMER. (test cod e = 98418) 53 ML/MIN/1.73 eGFR NON- AMER. (test code = 06394) 45 ML/MIN/1.73 CALC BUN/CREAT (test code = [...] = 2219) 16 U/L Delfino OrtaCBC W/AUTO [id number] 00:00:00* Test Item Value Reference Range Interpretation [...] 1016) (NOTE) Delfino Schumacher AustinVAGINAL PATHOGENS DNA [id number] 00:00:00* Test Item Value Reference Range Interpretation Comme nts DIANNA SPECIES (test code = ) NEGATIVE G. VAGINALIS (test code = ) POSITIVE T. VAGINALIS (test code = ) NEGATIVE Delfino OrtaCOMPREHENSIVE METABOLIC [id number] 00:00:00* Test Item Value Reference Range Interpretation Comme nts GLUCOSE (test code = 2217) 92 MG/DL BUN (test code = 2208) 20 MG/DL CREATININE (test code = 2214) 1.31 MG/DL eGFR AMER. (test cod e = 55560) 53 ML/MIN/1.73 eGFR NON- AMER. (test code = 55926) 45 ML/MIN/1.73 CALC BUN/CREAT (test code = [...] = 2219) 16 U/L Delfino OrtaCBC W/AUTO [id number] 00:00:00* Test Item Value Reference Range Interpretation [...] = 1016) (NOTE) Delfino OrtaVAGINAL PATHOGENS DNA [id number] 00:00:00* Test Item Value Reference Range Interpretation Comme nts DIANNA SPECIES (test code = ) NEGATIVE G. VAGINALIS (test code = 24180) POSITIVE T. VAGINALIS (test code = 87346) NEGATIVE Delfino OratCOMPREHENSIVE METABOLIC [id number] 00:00:00* Test Item Value Reference Range Interpretation Comme nts GLUCOSE (test code = 2217) 92 MG/DL BUN (test code = 2208) 20 MG/DL CREATININE (test code = 2214) 1.31 MG/DL eGFR AMER. (test cod e = 48411) 53 ML/MIN/1.73 eGFR NON- AMER. (test code = 24572) 45 ML/MIN/1.73 CALC BUN/CREAT (test code = [...] = 2219) 16 U/L Delfino OrtaCBC W/AUTO [id number] 00:00:00* Test Item Value Reference Range Interpretation [...] = 1016) (NOTE) Delfino OrtaVAGINAL PATHOGENS DNA [id number] 00:00:00* Test Item Value Reference Range Interpretation Comme nts DIANNA SPECIES (test code = ) NEGATIVE G. VAGINALIS (test code = ) POSITIVE T. VAGINALIS (test code = ) NEGATIVE Delfino OrtaCOMPREHENSIVE METABOLIC [id number] 00:00:00* Test Item Value Reference Range Interpretation Comme nts GLUCOSE (test code = 2217) 92 MG/DL BUN (test code = 2208) 20 MG/DL CREATININE (test code = 2214) 1.31 MG/DL eGFR AMER. (test cod e = 54294) 53 ML/MIN/1.73 eGFR NON- AMER. (test code = 28866) 45 ML/MIN/1.73 CALC BUN/CREAT (test code = [...] 2219) 16 U/L Delfino Endy YouCBC W/AUTO [id number] 00:00:00* Test Item Value Reference Range Interpretation [...] 1016) (NOTE) Delfino Schumacher YouVAGINAL PATHOGENS DNA [id number] 00:00:00* Test Item Value Reference Range Interpretation Comme nts DIANNA SPECIES (test code = ) NEGATIVE G. VAGINALIS (test code = ) POSITIVE T. VAGINALIS (test code = ) NEGATIVE Delfino Schumacher YouCOMPREHENSIVE METABOLIC [id number] 00:00:00* Test Item Value Reference Range Interpretation Comme nts GLUCOSE (test code = 7) 92 MG/DL BUN (test code = 2208) 20 MG/DL CREATININE (test code = 2214) 1.31 MG/DL eGFR AMER. (test cod e = 92304) 53 ML/MIN/1.73 eGFR NON- AMER. (test code = 56655) 45 ML/MIN/1.73 CALC BUN/CREAT (test code = [...] = 2219) 16 U/L Delfino OrtaCBC W/AUTO [id number] 00:00:00* Test Item Value Reference Range Interpretation [...] = 1016) (NOTE) Delfino OrtaVAGINAL PATHOGENS DNA [id number] 00:00:00* Test Item Value Reference Range Interpretation Comme nts DIANNA SPECIES (test code = ) NEGATIVE G. VAGINALIS (test code = ) POSITIVE T. VAGINALIS (test code = ) NEGATIVE Delfino OrtaCOMPREHENSIVE METABOLIC [id number] 00:00:00* Test Item Value Reference Range Interpretation Comme nts GLUCOSE (test code = 2217) 92 MG/DL BUN (test code = 2208) 20 MG/DL CREATININE (test code = 2214) 1.31 MG/DL eGFR AMER. (test cod e = 59838) 53 ML/MIN/1.73 eGFR NON- AMER. (test code = 47010) 45 ML/MIN/1.73 CALC BUN/CREAT (test code = [...] 2219) 16 U/L Delfino Schumacher YouCBC W/AUTO [id number] 00:00:00* Test Item Value Reference Range Interpretation [...] = 1016) (NOTE) Delfino OrtaVAGINAL PATHOGENS DNA [id number] 00:00:00* Test Item Value Reference Range Interpretation Comme nts DIANNA SPECIES (test code = ) NEGATIVE G. VAGINALIS (test code = ) POSITIVE T. VAGINALIS (test code = ) NEGATIVE Delfino OrtaCOMPREHENSIVE METABOLIC [id number] 00:00:00* Test Item Value Reference Range Interpretation Comme nts GLUCOSE (test code = 2217) 92 MG/DL BUN (test code = 2208) 20 MG/DL CREATININE (test code = 2214) 1.31 MG/DL eGFR AMER. (test cod e = 97591) 53 ML/MIN/1.73 eGFR NON- AMER. (test code = 84265) 45 ML/MIN/1.73 CALC BUN/CREAT (test code = [...] = 2219) 16 U/L Delfino OrtaCBC W/AUTO [id number] 00:00:00* Test Item Value Reference Range Interpretation [...] 1016) (NOTE) Delfino Endy AustinVAGINAL PATHOGENS DNA [id number] 00:00:00* Test Item Value Reference Range Interpretation Comme nts DIANNA SPECIES (test code = ) NEGATIVE G. VAGINALIS (test code = ) POSITIVE T. VAGINALIS (test code = ) NEGATIVE Delfino Schumacher YouCOMPREHENSIVE METABOLIC [id number] 00:00:00* Test Item Value Reference Range Interpretation Comme nts GLUCOSE (test code = 2217) 92 MG/DL BUN (test code = 2208) 20 MG/DL CREATININE (test code = 2214) 1.31 MG/DL eGFR AMER. (test cod e = 07343) 53 ML/MIN/1.73 eGFR NON- AMER. (test code = 92552) 45 ML/MIN/1.73 CALC BUN/CREAT (test code = [...] = 2219) 16 U/L Delfino OrtaCBC W/AUTO [id number] 00:00:00* Test Item Value Reference Range Interpretation [...] = 1016) (NOTE) Delfino OrtaVAGINAL PATHOGENS DNA [id number] 00:00:00* Test Item Value Reference Range Interpretation Comme nts DIANNA SPECIES (test code = ) NEGATIVE G. VAGINALIS (test code = ) POSITIVE T. VAGINALIS (test code = ) NEGATIVE Delfino OrtaCOMPREHENSIVE METABOLIC [id number] 00:00:00* Test Item Value Reference Range Interpretation Comme nts GLUCOSE (test code = 2217) 92 MG/DL BUN (test code = 2208) 20 MG/DL CREATININE (test code = 2214) 1.31 MG/DL eGFR AMER. (test cod e = 64947) 53 ML/MIN/1.73 eGFR NON- AMER. (test code = 39486) 45 ML/MIN/1.73 CALC BUN/CREAT (test code = [...] = 2219) 16 U/L Delfino OrtaCBC W/AUTO [id number] 00:00:00* Test Item Value Reference Range Interpretation [...] = 1016) (NOTE) Delfino OrtaVAGINAL PATHOGENS DNA [id number] 00:00:00* Test Item Value Reference Range Interpretation Comme nts DIANNA SPECIES (test code = ) NEGATIVE G. VAGINALIS (test code = ) POSITIVE T. VAGINALIS (test code = 83867) NEGATIVE Delfino OrtaCOMPREHENSIVE METABOLIC [id number] 00:00:00* Test Item Value Reference Range Interpretation Comme nts GLUCOSE (test code = 2217) 92 MG/DL BUN (test code = 2208) 20 MG/DL CREATININE (test code = 2214) 1.31 MG/DL eGFR AMER. (test cod e = 68894) 53 ML/MIN/1.73 eGFR NON- AMER. (test code = 94615) 45 ML/MIN/1.73 CALC BUN/CREAT (test code = [...] = 2219) 16 U/L Delfino OrtaCBC W/AUTO [id number] 00:00:00* Test Item Value Reference Range Interpretation [...] = 1016) (NOTE) Delfino OrtaVAGINAL PATHOGENS DNA [id number] 00:00:00* Test Item Value Reference Range Interpretation Comme nts DIANNA SPECIES (test code = ) NEGATIVE G. VAGINALIS (test code = ) POSITIVE T. VAGINALIS (test code = ) NEGATIVE Delfino OrtaCOMPREHENSIVE METABOLIC [id number] 00:00:00* Test Item Value Reference Range Interpretation Comme nts GLUCOSE (test code = 2217) 92 MG/DL BUN (test code = 2208) 20 MG/DL CREATININE (test code = 2214) 1.31 MG/DL eGFR AMER. (test cod e = 93683) 53 ML/MIN/1.73 eGFR NON- AMER. (test code = 53324) 45 ML/MIN/1.73 CALC BUN/CREAT (test code = [...] (test code = 2219) 16 U/[facility] [id number] 00:00:00* Test Item Value Reference Range Interpretation [...] 1016) (NOTE) Delfino F AustinVAGINAL PATHOGENS DNA [id number] 00:00:00* Test Item Value Reference Range Interpretation Comme nts DIANNA SPECIES (test code = ) NEGATIVE G. VAGINALIS (test code = ) POSITIVE T. VAGINALIS (test code = ) NEGATIVE Delfino OrtaCOMPREHENSIVE METABOLIC [id number] 00:00:00* Test Item Value Reference Range Interpretation Comme nts GLUCOSE (test code = 2217) 92 MG/DL BUN (test code = 2208) 20 MG/DL CREATININE (test code = 2214) 1.31 MG/DL eGFR AMER. (test cod e = 40354) 53 ML/MIN/1.73 eGFR NON- AMER. (test code = 19892) 45 ML/MIN/1.73 CALC BUN/CREAT (test code = [...] = 2219) 16 U/L Delfino OrtaCBC W/AUTO [id number] 00:00:00* Test Item Value Reference Range Interpretation [...] = 1016) (NOTE) Delfino OrtaVAGINAL PATHOGENS DNA [id number] 00:00:00* Test Item Value Reference Range Interpretation Comme nts DIANNA SPECIES (test code = ) NEGATIVE G. VAGINALIS (test code = ) POSITIVE T. VAGINALIS (test code = ) NEGATIVE Delfino OrtaCOMPREHENSIVE METABOLIC [id number] 00:00:00* Test Item Value Reference Range Interpretation Comme nts GLUCOSE (test code = 2217) 92 MG/DL BUN (test code = 2208) 20 MG/DL CREATININE (test code = 2214) 1.31 MG/DL eGFR AMER. (test cod e = 91831) 53 ML/MIN/1.73 eGFR NON- AMER. (test code = 31175) 45 ML/MIN/1.73 CALC BUN/CREAT (test code = [...] = 2219) 16 U/L Delfino OrtaCBC W/AUTO [id number] 00:00:00* Test Item Value Reference Range Interpretation [...] 1016) (NOTE) Delfino Endy AustinVAGINAL PATHOGENS DNA [id number] 00:00:00* Test Item Value Reference Range Interpretation Comme nts DIANNA SPECIES (test code = ) NEGATIVE G. VAGINALIS (test code = ) POSITIVE T. VAGINALIS (test code = ) NEGATIVE Delfino Schumacher YouCOMPREHENSIVE METABOLIC [id number] 00:00:00* Test Item Value Reference Range Interpretation Comme nts GLUCOSE (test code = 2217) 92 MG/DL BUN (test code = 2208) 20 MG/DL CREATININE (test code = 2214) 1.31 MG/DL eGFR AMER. (test cod e = 91112) 53 ML/MIN/1.73 eGFR NON- AMER. (test code = 47465) 45 ML/MIN/1.73 CALC BUN/CREAT (test code = [...] = 2219) 16 U/L Delfino OrtaCBC W/AUTO [id number] 00:00:00* Test Item Value Reference Range Interpretation [...] = 1016) (NOTE) Delfino OrtaVAGINAL PATHOGENS DNA [id number] 00:00:00* Test Item Value Reference Range Interpretation Comme nts DIANNA SPECIES (test code = ) NEGATIVE G. VAGINALIS (test code = ) POSITIVE T. VAGINALIS (test code = 39146) NEGATIVE Delfino OrtaCOMPREHENSIVE METABOLIC [id number] 00:00:00* Test Item Value Reference Range Interpretation Comme nts GLUCOSE (test code = 2217) 92 MG/DL BUN (test code = 2208) 20 MG/DL CREATININE (test code = 2214) 1.31 MG/DL eGFR AMER. (test cod e = 26964) 53 ML/MIN/1.73 eGFR NON- AMER. (test code = 82853) 45 ML/MIN/1.73 CALC BUN/CREAT (test code = [...] = 2219) 16 U/L Delfino OrtaCBC W/AUTO [id number] 00:00:00* Test Item Value Reference Range Interpretation [...] 1016) (NOTE) Delfino F YouVAGINAL PATHOGENS DNA [id number] 00:00:00* Test Item Value Reference Range Interpretation Comme nts DIANNA SPECIES (test code = ) NEGATIVE G. VAGINALIS (test code = ) POSITIVE T. VAGINALIS (test code = ) NEGATIVE Delfino Schumacher YouCOMPREHENSIVE METABOLIC [id number] 00:00:00* Test Item Value Reference Range Interpretation Comme nts GLUCOSE (test code = 2217) 92 MG/DL BUN (test code = 2208) 20 MG/DL CREATININE (test code = 2214) 1.31 MG/DL eGFR AMER. (test cod e = 50959) 53 ML/MIN/1.73 eGFR NON- AMER. (test code = 79607) 45 ML/MIN/1.73 CALC BUN/CREAT (test code = [...] = 2219) 16 U/L Delfino OrtaCBC W/AUTO [id number] 00:00:00* Test Item Value Reference Range Interpretation [...] = 1016) (NOTE) Delfino OrtaVAGINAL PATHOGENS DNA [id number] 00:00:00* Test Item Value Reference Range Interpretation Comme nts DIANNA SPECIES (test code = ) NEGATIVE G. VAGINALIS (test code = ) POSITIVE T. VAGINALIS (test code = 98495) NEGATIVE Delfino OrtaCOMPREHENSIVE METABOLIC [id number] 00:00:00* Test Item Value Reference Range Interpretation Comme nts GLUCOSE (test code = 2217) 92 MG/DL BUN (test code = 2208) 20 MG/DL CREATININE (test code = 2214) 1.31 MG/DL eGFR AMER. (test cod e = 91831) 53 ML/MIN/1.73 eGFR NON- AMER. (test code = 54840) 45 ML/MIN/1.73 CALC BUN/CREAT (test code = [...] = 2219) 16 U/L Delfino OrtaCBC W/AUTO [id number] 00:00:00* Test Item Value Reference Range Interpretation [...] = 1016) (NOTE) Delfino OrtaVAGINAL PATHOGENS DNA [id number] 00:00:00* Test Item Value Reference Range Interpretation Comme nts DIANNA SPECIES (test code = ) NEGATIVE G. VAGINALIS (test code = ) POSITIVE T. VAGINALIS (test code = ) NEGATIVE Delfino OrtaCOMPREHENSIVE METABOLIC [id number] 00:00:00* Test Item Value Reference Range Interpretation Comme nts GLUCOSE (test code = 2217) 92 MG/DL BUN (test code = 2208) 20 MG/DL CREATININE (test code = 2214) 1.31 MG/DL eGFR AMER. (test cod e = 74631) 53 ML/MIN/1.73 eGFR NON- AMER. (test code = 26252) 45 ML/MIN/1.73 CALC BUN/CREAT (test code = [...] = 2219) 16 U/L Delfino OrtaCBC W/AUTO [id number] 00:00:00* Test Item Value Reference Range Interpretation [...] 1016) (NOTE) Delfino Schumacher AustinVAGINAL PATHOGENS DNA [id number] 00:00:00* Test Item Value Reference Range Interpretation Comme nts DIANNA SPECIES (test code = ) NEGATIVE G. VAGINALIS (test code = 57519) POSITIVE T. VAGINALIS (test code = 79601) NEGATIVE Delfino Schumacher AustinVAGINAL PATHOGENS DNA [id number] 00:00:00* Test Item Value Reference Range Interpretation Comme nts DIANNA SPECIES (test code = ) NEGATIVE G. VAGINALIS (test code = 84547) POSITIVE T. VAGINALIS (test code = 22644) NEGATIVE COMPREHENSIVE METABOLIC [id number] 00:00:00* Test Item Value Reference Range Interpretation Comme nts GLUCOSE (test code = 2217) 92 MG/DL BUN (test code = 8) 20 MG/DL CREATININE (test code = 4) 1.31 MG/DL eGFR AMER. (test cod e = 14501) 53 ML/MIN/1.73 eGFR NON- AMER. (test code = 91889) 45 ML/MIN/1.73 CALC BUN/CREAT (test code = [...] code = 2219) 16 U/L COMPREHENSIVE METABOLIC [id number] 00:00:00* Test Item Value Reference Range Interpretation Comme nts GLUCOSE (test code = 2217) 95 MG/DL BUN (test code = 2208) 21 MG/DL CREATININE (test code = 2214) 0.87 MG/DL eGFR AMER. (test cod e = 32490) 87 ML/MIN/1.73 eGFR NON- AMER. (test code = 45912) 75 ML/MIN/1.73 CALC BUN/CREAT (test code = [...] (test code = 2219) 8 U/L URIC [id number] 00:00:00* Test Item Value Reference Range Interpretation Comme nts URIC ACID (test code = 2233) 8.5 MG/DL VITAMIN [id number] 00:00:00* Test Item Value Reference Range Interpretation Comme nts VITAMIN B-12 (test code = 2840) 335 PG/ML CBC W/AUTO [id number] 00:00:00* Test Item Value Reference Range Interpretation [...] (test code = 1015) 212 K/UL LIPID [id number] 00:00:00* Test Item Value Reference Range Interpretation Comme nts CHOLESTEROL (test code = 2210) 141 MG/DL TRIGLYCERIDES (test code = 2232) 71 MG/DL HDL CHOLESTEROL (test code = 2220) 69 MG/DL CALC LDL CHOL (test code = 2237) 58 MG/DL RISK RATIO LDL/HDL (test cod e = 2238) 0.84 RATIO COMPREHENSIVE METABOLIC [id number] 00:00:00* Test Item Value Reference Range Interpretation Comme nts GLUCOSE (test code = 2217) 95 MG/DL BUN (test code = 2208) 21 MG/DL CREATININE (test code = 2214) 0.87 MG/DL eGFR AMER. (test cod e = 18500) 87 ML/MIN/1.73 eGFR NON- AMER. (test code = 60396) 75 ML/MIN/1.73 CALC BUN/CREAT (test code = [...] (test code = 2219) 8 U/L URIC [id number] 00:00:00* Test Item Value Reference Range Interpretation Comme nts URIC ACID (test code = 2233) 8.5 MG/DL VITAMIN [id number] 00:00:00* Test Item Value Reference Range Interpretation Comme nts VITAMIN B-12 (test code = 2840) 335 PG/ML CBC W/AUTO [id number] 00:00:00* Test Item Value Reference Range Interpretation [...] (test code = 1015) 212 K/UL LIPID [id number] 00:00:00* Test Item Value Reference Range Interpretation Comme nts CHOLESTEROL (test code = 2210) 141 MG/DL TRIGLYCERIDES (test code = 2232) 71 MG/DL HDL CHOLESTEROL (test code = 2220) 69 MG/DL CALC LDL CHOL (test code = 2237) 58 MG/DL RISK RATIO LDL/HDL (test cod e = 2238) 0.84 RATIO COMPREHENSIVE METABOLIC [id number] 00:00:00* Test Item Value Reference Range Interpretation Comme nts GLUCOSE (test code = 2217) 95 MG/DL BUN (test code = 2208) 21 MG/DL CREATININE (test code = 2214) 0.87 MG/DL eGFR AMER. (test cod e = 03941) 87 ML/MIN/1.73 eGFR NON- AMER. (test code = 17898) 75 ML/MIN/1.73 CALC BUN/CREAT (test code = [...] 2204) 83 U/L AST (test code = 221) 27 U/L ALT (test code = 2219) 8 U/L URIC [id number] 00:00:00* Test Item Value Reference Range Interpretation Comme [facility] URIC ACID (test code = 2233) 8.5 MG/DL VITAMIN [id number] 00:00:00* Test Item Value Reference Range Interpretation Comme [facility] VITAMIN B-12 (test code = 2840) 335 PG/ML CBC W/AUTO [id number] 00:00:00* Test Item Value Reference Range Interpretation [...] (test code = 1015) 212 K/UL LIPID [id number] 00:00:00* Test Item Value Reference Range Interpretation Comme nts CHOLESTEROL (test code = 2210) 141 MG/DL TRIGLYCERIDES (test code = 2232) 71 MG/DL HDL CHOLESTEROL (test code = 2220) 69 MG/DL CALC LDL CHOL (test code = 2237) 58 MG/DL RISK RATIO LDL/HDL (test cod e = 2238) 0.84 RATIO COMPREHENSIVE METABOLIC [id number] 00:00:00* Test Item Value Reference Range Interpretation Comme nts GLUCOSE (test code = 2217) 95 MG/DL BUN (test code = 2208) 21 MG/DL CREATININE (test code = 2214) 0.87 MG/DL eGFR AMER. (test cod e = 46921) 87 ML/MIN/1.73 eGFR NON- AMER. (test code = 40549) 75 ML/MIN/1.73 CALC BUN/CREAT (test code = [...] (test code = 2219) 8 U/L URIC [id number] 00:00:00* Test Item Value Reference Range Interpretation Comme nts URIC ACID (test code = 2233) 8.5 MG/DL VITAMIN [id number] 00:00:00* Test Item Value Reference Range Interpretation Comme nts VITAMIN B-12 (test code = 2840) 335 PG/ML CBC W/AUTO [id number] 00:00:00* Test Item Value Reference Range Interpretation [...] = 1015) 212 K/UL Delfino OrtaCOMPREHENSIVE METABOLIC [id number] 00:00:00* Test Item Value Reference Range Interpretation Comme nts GLUCOSE (test code = 2217) 95 MG/DL BUN (test code = 2208) 21 MG/DL CREATININE (test code = 2214) 0.87 MG/DL eGFR AMER. (test cod e = 26291) 87 ML/MIN/1.73 eGFR NON- AMER. (test code = 64642) 75 ML/MIN/1.73 CALC BUN/CREAT (test code = [...] code = 2219) 8 U/L Delfino OrtaURIC [id number] 00:00:00* Test Item Value Reference Range Interpretation Comme nts URIC ACID (test code = 2233) 8.5 MG/DL Delfino Schumacher YouVITAMIN [id number] 00:00:00* Test Item Value Reference Range Interpretation Comme nts VITAMIN B-12 (test code = 2840) 335 PG/ML Delfino OrtaCBC W/AUTO [id number] 00:00:00* Test Item Value Reference Range Interpretation [...] code = 1015) 212 K/UL Delfino OrtaLIPID [id number] 00:00:00* Test Item Value Reference Range Interpretation Comme nts CHOLESTEROL (test code = 2210) 141 MG/DL TRIGLYCERIDES (test code = 2232) 71 MG/DL HDL CHOLESTEROL (test code = 2220) 69 MG/DL CALC LDL CHOL (test code = 2237) 58 MG/DL RISK RATIO LDL/HDL (test cod e = 2238) 0.84 RATIO Delfino OrtaCOMPREHENSIVE METABOLIC [id number] 00:00:00* Test Item Value Reference Range Interpretation Comme nts GLUCOSE (test code = 2217) 95 MG/DL BUN (test code = 2208) 21 MG/DL CREATININE (test code = 2214) 0.87 MG/DL eGFR AMER. (test cod e = 24496) 87 ML/MIN/1.73 eGFR NON- AMER. (test code = 66734) 75 ML/MIN/1.73 CALC BUN/CREAT (test code = [...] code = 2219) 8 U/L Delfino OrtaURIC [id number] 00:00:00* Test Item Value Reference Range Interpretation Comme [facility] URIC ACID (test code = 2233) 8.5 MG/DL Delfino OrtaVITAMIN [id number] 00:00:00* Test Item Value Reference Range Interpretation Comme [facility] VITAMIN B-12 (test code = 2840) 335 PG/ML Delfino OrtaCBC W/AUTO [id number] 00:00:00* Test Item Value Reference Range Interpretation [...] code = 1015) 212 K/UL Delfino OrtaLIPID [id number] 00:00:00* Test Item Value Reference Range Interpretation Comme nts CHOLESTEROL (test code = 2210) 141 MG/DL TRIGLYCERIDES (test code = 2232) 71 MG/DL HDL CHOLESTEROL (test code = 2220) 69 MG/DL CALC LDL CHOL (test code = 2237) 58 MG/DL RISK RATIO LDL/HDL (test cod e = 2238) 0.84 RATIO Delfino OrtaLIPID [id number] 00:00:00* Test Item Value Reference Range Interpretation Comme nts CHOLESTEROL (test code = 2210) 141 MG/DL TRIGLYCERIDES (test code = 2232) 71 MG/DL HDL CHOLESTEROL (test code = 2220) 69 MG/DL CALC LDL CHOL (test code = 2237) 58 MG/DL RISK RATIO LDL/HDL (test cod e = 2238) 0.84 RATIO Delfino OrtaCOMPREHENSIVE METABOLIC [id number] 00:00:00* Test Item Value Reference Range Interpretation Comme nts GLUCOSE (test code = 2217) 95 MG/DL BUN (test code = 2208) 21 MG/DL CREATININE (test code = 2214) 0.87 MG/DL eGFR AMER. (test cod e = 63597) 87 ML/MIN/1.73 eGFR NON- AMER. (test code = 24280) 75 ML/MIN/1.73 CALC BUN/CREAT (test code = [...] code = 2219) 8 U/L Delfino OrtaURIC [id number] 00:00:00* Test Item Value Reference Range Interpretation Comme nts URIC ACID (test code = 2233) 8.5 MG/DL Delfino OrtaVITAMIN [id number] 00:00:00* Test Item Value Reference Range Interpretation Comme nts VITAMIN B-12 (test code = 2840) 335 PG/ML Delfino OrtaCBC W/AUTO [id number] 00:00:00* Test Item Value Reference Range Interpretation [...] code = 1015) 212 K/UL Delfino OrtaLIPID [id number] 00:00:00* Test Item Value Reference Range Interpretation Comme nts CHOLESTEROL (test code = 2210) 141 MG/DL TRIGLYCERIDES (test code = 2232) 71 MG/DL HDL CHOLESTEROL (test code = 2220) 69 MG/DL CALC LDL CHOL (test code = 2237) 58 MG/DL RISK RATIO LDL/HDL (test cod e = 2238) 0.84 RATIO Delfino OrtaCOMPREHENSIVE METABOLIC [id number] 00:00:00* Test Item Value Reference Range Interpretation Comme nts GLUCOSE (test code = 2217) 95 MG/DL BUN (test code = 2208) 21 MG/DL CREATININE (test code = 2214) 0.87 MG/DL eGFR AMER. (test cod e = 60696) 87 ML/MIN/1.73 eGFR NON- AMER. (test code = 64851) 75 ML/MIN/1.73 CALC BUN/CREAT (test code = [...] code = 2219) 8 U/L Delfino OrtaURIC [id number] 00:00:00* Test Item Value Reference Range Interpretation Comme [facility] URIC ACID (test code = 2233) 8.5 MG/DL Delfino OrtaVITAMIN [id number] 00:00:00* Test Item Value Reference Range Interpretation Comme [facility] VITAMIN B-12 (test code = 2840) 335 PG/ML Delfino OrtaCOMPREHENSIVE METABOLIC [id number] 00:00:00* Test Item Value Reference Range Interpretation Comme nts GLUCOSE (test code = 2217) 95 MG/DL BUN (test code = 2208) 21 MG/DL CREATININE (test code = 2214) 0.87 MG/DL eGFR AMER. (test cod e = 24942) 87 ML/MIN/1.73 eGFR NON- AMER. (test code = 59580) 75 ML/MIN/1.73 CALC BUN/CREAT (test code = [...] = 2219) 8 U/L Delfino OrtaCBC W/AUTO [id number] 00:00:00* Test Item Value Reference Range Interpretation [...] code = 1015) 212 K/UL Delfino OrtaLIPID [id number] 00:00:00* Test Item Value Reference Range Interpretation Comme nts CHOLESTEROL (test code = 2210) 141 MG/DL TRIGLYCERIDES (test code = 2232) 71 MG/DL HDL CHOLESTEROL (test code = 2220) 69 MG/DL CALC LDL CHOL (test code = 2237) 58 MG/DL RISK RATIO LDL/HDL (test cod e = 2238) 0.84 RATIO Delfino OrtaCOMPREHENSIVE METABOLIC [id number] 00:00:00* Test Item Value Reference Range Interpretation Comme nts GLUCOSE (test code = 2217) 95 MG/DL BUN (test code = 2208) 21 MG/DL CREATININE (test code = 2214) 0.87 MG/DL eGFR AMER. (test cod e = 08243) 87 ML/MIN/1.73 eGFR NON- AMER. (test code = 64577) 75 ML/MIN/1.73 CALC BUN/CREAT (test code = [...] code = 2219) 8 U/L Delfino OrtaURIC [id number] 00:00:00* Test Item Value Reference Range Interpretation Comme [facility] URIC ACID (test code = 2233) 8.5 MG/DL Delfino OrtaVITAMIN [id number] 00:00:00* Test Item Value Reference Range Interpretation Comme [facility] VITAMIN B-12 (test code = 2840) 335 PG/ML Delfino OrtaCBC W/AUTO [id number] 00:00:00* Test Item Value Reference Range Interpretation [...] code = 1015) 212 K/UL Delfino OrtaLIPID [id number] 00:00:00* Test Item Value Reference Range Interpretation Comme nts CHOLESTEROL (test code = 2210) 141 MG/DL TRIGLYCERIDES (test code = 2232) 71 MG/DL HDL CHOLESTEROL (test code = 2220) 69 MG/DL CALC LDL CHOL (test code = 2237) 58 MG/DL RISK RATIO LDL/HDL (test cod e = 2238) 0.84 RATIO Delfino OrtaURIC [id number] 00:00:00* Test Item Value Reference Range Interpretation Comme nts URIC ACID (test code = 2233) 8.5 MG/DL Delfino OrtaCOMPREHENSIVE METABOLIC [id number] 00:00:00* Test Item Value Reference Range Interpretation Comme nts GLUCOSE (test code = 2217) 95 MG/DL BUN (test code = 2208) 21 MG/DL CREATININE (test code = 2214) 0.87 MG/DL eGFR AMER. (test cod e = 75032) 87 ML/MIN/1.73 eGFR NON- AMER. (test code = 59638) 75 ML/MIN/1.73 CALC BUN/CREAT (test code = [...] code = 2219) 8 U/L Delfino OrtaURIC [id number] 00:00:00* Test Item Value Reference Range Interpretation Comme [facility] URIC ACID (test code = 2233) 8.5 MG/DL Delfino OrtaVITAMIN [id number] 00:00:00* Test Item Value Reference Range Interpretation Comme [facility] VITAMIN B-12 (test code = 2840) 335 PG/ML Delfino OrtaCBC W/AUTO [id number] 00:00:00* Test Item Value Reference Range Interpretation [...] code = 1015) 212 K/UL Delfino OrtaVITAMIN [id number] 00:00:00* Test Item Value Reference Range Interpretation Comme nts VITAMIN B-12 (test code = 2840) 335 PG/ML Delfino OrtaLIPID [id number] 00:00:00* Test Item Value Reference Range Interpretation Comme nts CHOLESTEROL (test code = 2210) 141 MG/DL TRIGLYCERIDES (test code = 2232) 71 MG/DL HDL CHOLESTEROL (test code = 2220) 69 MG/DL CALC LDL CHOL (test code = 2237) 58 MG/DL RISK RATIO LDL/HDL (test cod e = 2238) 0.84 RATIO Delfino OrtaCOMPREHENSIVE METABOLIC [id number] 00:00:00* Test Item Value Reference Range Interpretation Comme nts GLUCOSE (test code = 2217) 95 MG/DL BUN (test code = 2208) 21 MG/DL CREATININE (test code = 2214) 0.87 MG/DL eGFR AMER. (test cod e = 88925) 87 ML/MIN/1.73 eGFR NON- AMER. (test code = 75433) 75 ML/MIN/1.73 CALC BUN/CREAT (test code = [...] code = 2219) 8 U/L Delfino OrtaURIC [id number] 00:00:00* Test Item Value Reference Range Interpretation Comme [facility] URIC ACID (test code = 2233) 8.5 MG/DL Delfino OrtaVITAMIN [id number] 00:00:00* Test Item Value Reference Range Interpretation Comme [facility] VITAMIN B-12 (test code = 2840) 335 PG/ML Delfino OrtaCBC W/AUTO [id number] 00:00:00* Test Item Value Reference Range Interpretation [...] code = 1015) 212 K/UL Delfino OrtaLIPID [id number] 00:00:00* Test Item Value Reference Range Interpretation Comme nts CHOLESTEROL (test code = 2210) 141 MG/DL TRIGLYCERIDES (test code = 2232) 71 MG/DL HDL CHOLESTEROL (test code = 2220) 69 MG/DL CALC LDL CHOL (test code = 2237) 58 MG/DL RISK RATIO LDL/HDL (test cod e = 2238) 0.84 RATIO Delfino OrtaCOMPREHENSIVE METABOLIC [id number] 00:00:00* Test Item Value Reference Range Interpretation Comme nts GLUCOSE (test code = 2217) 95 MG/DL BUN (test code = 2208) 21 MG/DL CREATININE (test code = 2214) 0.87 MG/DL eGFR AMER. (test cod e = 23009) 87 ML/MIN/1.73 eGFR NON- AMER. (test code = 19574) 75 ML/MIN/1.73 CALC BUN/CREAT (test code = [...] code = 2219) 8 U/L Delfino OrtaURIC [id number] 00:00:00* Test Item Value Reference Range Interpretation Comme nts URIC ACID (test code = 2233) 8.5 MG/DL Delfino OrtaVITAMIN [id number] 00:00:00* Test Item Value Reference Range Interpretation Comme nts VITAMIN B-12 (test code = 2840) 335 PG/ML Delfino OrtaCBC W/AUTO [id number] 00:00:00* Test Item Value Reference Range Interpretation [...] code = 1015) 212 K/UL Delfino OrtaLIPID [id number] 00:00:00* Test Item Value Reference Range Interpretation Comme nts CHOLESTEROL (test code = 2210) 141 MG/DL TRIGLYCERIDES (test code = 2232) 71 MG/DL HDL CHOLESTEROL (test code = 2220) 69 MG/DL CALC LDL CHOL (test code = 2237) 58 MG/DL RISK RATIO LDL/HDL (test cod e = 2238) 0.84 RATIO Delfino OrtaCOMPREHENSIVE METABOLIC [id number] 00:00:00* Test Item Value Reference Range Interpretation Comme nts GLUCOSE (test code = 2217) 95 MG/DL BUN (test code = 2208) 21 MG/DL CREATININE (test code = 2214) 0.87 MG/DL eGFR AMER. (test cod e = 73511) 87 ML/MIN/1.73 eGFR NON- AMER. (test code = 53897) 75 ML/MIN/1.73 CALC BUN/CREAT (test code = [...] code = 2219) 8 U/L Delfino OrtaURIC [id number] 00:00:00* Test Item Value Reference Range Interpretation Comme [facility] URIC ACID (test code = 2233) 8.5 MG/DL Delfino OrtaVITAMIN [id number] 00:00:00* Test Item Value Reference Range Interpretation Comme [facility] VITAMIN B-12 (test code = 2840) 335 PG/ML Delfino OrtaCBC W/AUTO [id number] 00:00:00* Test Item Value Reference Range Interpretation [...] code = 1015) 212 K/UL Delfino OrtaLIPID [id number] 00:00:00* Test Item Value Reference Range Interpretation Comme nts CHOLESTEROL (test code = 2210) 141 MG/DL TRIGLYCERIDES (test code = 2232) 71 MG/DL HDL CHOLESTEROL (test code = 2220) 69 MG/DL CALC LDL CHOL (test code = 2237) 58 MG/DL RISK RATIO LDL/HDL (test cod e = 2238) 0.84 RATIO Delfino OrtaCOMPREHENSIVE METABOLIC [id number] 00:00:00* Test Item Value Reference Range Interpretation Comme nts GLUCOSE (test code = 2217) 95 MG/DL BUN (test code = 2208) 21 MG/DL CREATININE (test code = 2214) 0.87 MG/DL eGFR AMER. (test cod e = 36257) 87 ML/MIN/1.73 eGFR NON- AMER. (test code = 57186) 75 ML/MIN/1.73 CALC BUN/CREAT (test code = [...] 2204) 83 U/L AST (test code = 221) 27 U/L ALT (test code = 2219) 8 U/L Delfino OrtaURIC [id number] 00:00:00* Test Item Value Reference Range Interpretation Comme [facility] URIC ACID (test code = 2233) 8.5 MG/DL Delfino OrtaVITAMIN [id number] 00:00:00* Test Item Value Reference Range Interpretation Comme [facility] VITAMIN B-12 (test code = 2840) 335 PG/ML Delfino OrtaCBC W/AUTO [id number] 00:00:00* Test Item Value Reference Range Interpretation [...] code = 1015) 212 K/UL Delfino OrtaLIPID [id number] 00:00:00* Test Item Value Reference Range Interpretation Comme nts CHOLESTEROL (test code = 2210) 141 MG/DL TRIGLYCERIDES (test code = 2232) 71 MG/DL HDL CHOLESTEROL (test code = 2220) 69 MG/DL CALC LDL CHOL (test code = 2237) 58 MG/DL RISK RATIO LDL/HDL (test cod e = 2238) 0.84 RATIO Delfino OrtaCOMPREHENSIVE METABOLIC [id number] 00:00:00* Test Item Value Reference Range Interpretation Comme nts GLUCOSE (test code = 2217) 95 MG/DL BUN (test code = 2208) 21 MG/DL CREATININE (test code = 2214) 0.87 MG/DL eGFR AMER. (test cod e = 58710) 87 ML/MIN/1.73 eGFR NON- AMER. (test code = 54248) 75 ML/MIN/1.73 CALC BUN/CREAT (test code = [...] code = 2219) 8 U/L Delfino OrtaURIC [id number] 00:00:00* Test Item Value Reference Range Interpretation Comme nts URIC ACID (test code = 2233) 8.5 MG/DL Delfino OrtaVITAMIN [id number] 00:00:00* Test Item Value Reference Range Interpretation Comme nts VITAMIN B-12 (test code = 2840) 335 PG/ML Delfino OrtaCBC W/AUTO [id number] 00:00:00* Test Item Value Reference Range Interpretation [...] code = 1015) 212 K/UL Delfino Schumacher KinmundyLIPID [id number] 00:00:00* Test Item Value Reference Range Interpretation Comme nts CHOLESTEROL (test code = 2210) 141 MG/DL TRIGLYCERIDES (test code = 2232) 71 MG/DL HDL CHOLESTEROL (test code = 2220) 69 MG/DL CALC LDL CHOL (test code = 2237) 58 MG/DL RISK RATIO LDL/HDL (test cod e = 2238) 0.84 RATIO Delfino OrtaCOMPREHENSIVE METABOLIC [id number] 00:00:00* Test Item Value Reference Range Interpretation Comme nts GLUCOSE (test code = 2217) 95 MG/DL BUN (test code = 2208) 21 MG/DL CREATININE (test code = 2214) 0.87 MG/DL eGFR AMER. (test cod e = 30139) 87 ML/MIN/1.73 eGFR NON- AMER. (test code = 83724) 75 ML/MIN/1.73 CALC BUN/CREAT (test code = [...] code = 2219) 8 U/L Delfino OrtaURIC [id number] 00:00:00* Test Item Value Reference Range Interpretation Comme nts URIC ACID (test code = 2233) 8.5 MG/DL Dlefino OrtaVITAMIN [id number] 00:00:00* Test Item Value Reference Range Interpretation Comme nts VITAMIN B-12 (test code = 2840) 335 PG/ML Delfino OrtaCBC W/AUTO [id number] 00:00:00* Test Item Value Reference Range Interpretation [...] code = 1015) 212 K/UL Delfino OrtaLIPID [id number] 00:00:00* Test Item Value Reference Range Interpretation Comme nts CHOLESTEROL (test code = 2210) 141 MG/DL TRIGLYCERIDES (test code = 2232) 71 MG/DL HDL CHOLESTEROL (test code = 2220) 69 MG/DL CALC LDL CHOL (test code = 2237) 58 MG/DL RISK RATIO LDL/HDL (test cod e = 2238) 0.84 RATIO Delfino OrtaCOMPREHENSIVE METABOLIC [id number] 00:00:00* Test Item Value Reference Range Interpretation Comme nts GLUCOSE (test code = 2217) 95 MG/DL BUN (test code = 2208) 21 MG/DL CREATININE (test code = 2214) 0.87 MG/DL eGFR AMER. (test cod e = 20990) 87 ML/MIN/1.73 eGFR NON- AMER. (test code = 20392) 75 ML/MIN/1.73 CALC BUN/CREAT (test code = [...] code = 2219) 8 U/L Delfino OrtaURIC [id number] 00:00:00* Test Item Value Reference Range Interpretation Comme [facility] URIC ACID (test code = 2233) 8.5 MG/DL Delfino OrtaVITAMIN [id number] 00:00:00* Test Item Value Reference Range Interpretation Comme [facility] VITAMIN B-12 (test code = 2840) 335 PG/ML Delfino OrtaCBC W/AUTO [id number] 00:00:00* Test Item Value Reference Range Interpretation [...] code = 1015) 212 K/UL Delfino OrtaLIPID [id number] 00:00:00* Test Item Value Reference Range Interpretation Comme nts CHOLESTEROL (test code = 2210) 141 MG/DL TRIGLYCERIDES (test code = 2232) 71 MG/DL HDL CHOLESTEROL (test code = 2220) 69 MG/DL CALC LDL CHOL (test code = 2237) 58 MG/DL RISK RATIO LDL/HDL (test cod e = 2238) 0.84 RATIO Delfino OrtaCOMPREHENSIVE METABOLIC [id number] 00:00:00* Test Item Value Reference Range Interpretation Comme nts GLUCOSE (test code = 2217) 95 MG/DL BUN (test code = 2208) 21 MG/DL CREATININE (test code = 2214) 0.87 MG/DL eGFR AMER. (test cod e = 49866) 87 ML/MIN/1.73 eGFR NON- AMER. (test code = 34575) 75 ML/MIN/1.73 CALC BUN/CREAT (test code = [...] = 2219) 8 U/L Delfino Schumacher AustinURIC [id number] 00:00:00* Test Item Value Reference Range Interpretation Comme nts URIC ACID (test code = 2233) 8.5 MG/DL Delfino F AustinVITAMIN [id number] 00:00:00* Test Item Value Reference Range Interpretation Comme nts VITAMIN B-12 (test code = 2840) 335 PG/ML Delfino OrtaCBC W/AUTO [id number] 00:00:00* Test Item Value Reference Range Interpretation [...] code = 1015) 212 K/UL Delfino OrtaLIPID [id number] 00:00:00* Test Item Value Reference Range Interpretation Comme nts CHOLESTEROL (test code = 2210) 141 MG/DL TRIGLYCERIDES (test code = 2232) 71 MG/DL HDL CHOLESTEROL (test code = 2220) 69 MG/DL CALC LDL CHOL (test code = 2237) 58 MG/DL RISK RATIO LDL/HDL (test cod e = 2238) 0.84 RATIO Delfino OrtaCOMPREHENSIVE METABOLIC [id number] 00:00:00* Test Item Value Reference Range Interpretation Comme nts GLUCOSE (test code = 2217) 95 MG/DL BUN (test code = 2208) 21 MG/DL CREATININE (test code = 2214) 0.87 MG/DL eGFR AMER. (test cod e = 01323) 87 ML/MIN/1.73 eGFR NON- AMER. (test code = 89144) 75 ML/MIN/1.73 CALC BUN/CREAT (test code = [...] code = 2219) 8 U/L Delfino OrtaURIC [id number] 00:00:00* Test Item Value Reference Range Interpretation Comme [facility] URIC ACID (test code = 2233) 8.5 MG/DL Delfino OrtaVITAMIN [id number] 00:00:00* Test Item Value Reference Range Interpretation Comme [facility] VITAMIN B-12 (test code = 2840) 335 PG/ML Delfino OrtaCBC W/AUTO [id number] 00:00:00* Test Item Value Reference Range Interpretation [...] code = 1015) 212 K/UL Delfino OrtaLIPID [id number] 00:00:00* Test Item Value Reference Range Interpretation Comme nts CHOLESTEROL (test code = 2210) 141 MG/DL TRIGLYCERIDES (test code = 2232) 71 MG/DL HDL CHOLESTEROL (test code = 2220) 69 MG/DL CALC LDL CHOL (test code = 2237) 58 MG/DL RISK RATIO LDL/HDL (test cod e = 2238) 0.84 RATIO Delfino OrtaCOMPREHENSIVE METABOLIC [id number] 00:00:00* Test Item Value Reference Range Interpretation Comme nts GLUCOSE (test code = 2217) 95 MG/DL BUN (test code = 2208) 21 MG/DL CREATININE (test code = 2214) 0.87 MG/DL eGFR AMER. (test cod e = 82726) 87 ML/MIN/1.73 eGFR NON- AMER. (test code = 13335) 75 ML/MIN/1.73 CALC BUN/CREAT (test code = [...] code = 2219) 8 U/L Delfino OrtaURIC [id number] 00:00:00* Test Item Value Reference Range Interpretation Comme nts URIC ACID (test code = 2233) 8.5 MG/DL Delfino OrtaVITAMIN [id number] 00:00:00* Test Item Value Reference Range Interpretation Comme [facility] VITAMIN B-12 (test code = 2840) 335 PG/ML Delfino OrtaCBC W/AUTO [id number] 00:00:00* Test Item Value Reference Range Interpretation [...] code = 1015) 212 K/UL Delfino Schumacher KinmundyLIPID [id number] 00:00:00* Test Item Value Reference Range Interpretation Comme nts CHOLESTEROL (test code = 2210) 141 MG/DL TRIGLYCERIDES (test code = 2232) 71 MG/DL HDL CHOLESTEROL (test code = 2220) 69 MG/DL CALC LDL CHOL (test code = 2237) 58 MG/DL RISK RATIO LDL/HDL (test cod e = 2238) 0.84 RATIO Delfino OrtaCOMPREHENSIVE METABOLIC [id number] 00:00:00* Test Item Value Reference Range Interpretation Comme nts GLUCOSE (test code = 2217) 95 MG/DL BUN (test code = 2208) 21 MG/DL CREATININE (test code = 2214) 0.87 MG/DL eGFR AMER. (test cod e = 66653) 87 ML/MIN/1.73 eGFR NON- AMER. (test code = 02498) 75 ML/MIN/1.73 CALC BUN/CREAT (test code = [...] code = 2219) 8 U/L Delfino OrtaURIC [id number] 00:00:00* Test Item Value Reference Range Interpretation Comme nts URIC ACID (test code = 2233) 8.5 MG/DL Delfino OrtaVITAMIN [id number] 00:00:00* Test Item Value Reference Range Interpretation Comme [facility] VITAMIN B-12 (test code = 2840) 335 PG/ML Delfino OrtaCBC W/AUTO [id number] 00:00:00* Test Item Value Reference Range Interpretation [...] code = 1015) 212 K/UL Delfino OrtaLIPID [id number] 00:00:00* Test Item Value Reference Range Interpretation Comme nts CHOLESTEROL (test code = 2210) 141 MG/DL TRIGLYCERIDES (test code = 2232) 71 MG/DL HDL CHOLESTEROL (test code = 2220) 69 MG/DL CALC LDL CHOL (test code = 2237) 58 MG/DL RISK RATIO LDL/HDL (test cod e = 2238) 0.84 RATIO Delfino OrtaCOMPREHENSIVE METABOLIC [id number] 00:00:00* Test Item Value Reference Range Interpretation Comme nts GLUCOSE (test code = 2217) 95 MG/DL BUN (test code = 2208) 21 MG/DL CREATININE (test code = 2214) 0.87 MG/DL eGFR AMER. (test cod e = 69473) 87 ML/MIN/1.73 eGFR NON- AMER. (test code = 80922) 75 ML/MIN/1.73 CALC BUN/CREAT (test code = [...] code = 2219) 8 U/L Delfino OrtaURIC [id number] 00:00:00* Test Item Value Reference Range Interpretation Comme [facility] URIC ACID (test code = 2233) 8.5 MG/DL Delfino OrtaVITAMIN [id number] 00:00:00* Test Item Value Reference Range Interpretation Comme [facility] VITAMIN B-12 (test code = 2840) 335 PG/ML Delfino OrtaCBC W/AUTO [id number] 00:00:00* Test Item Value Reference Range Interpretation [...] code = 1015) 212 K/UL Delfino OrtaLIPID [id number] 00:00:00* Test Item Value Reference Range Interpretation Comme nts CHOLESTEROL (test code = 2210) 141 MG/DL TRIGLYCERIDES (test code = 2232) 71 MG/DL HDL CHOLESTEROL (test code = 2220) 69 MG/DL CALC LDL CHOL (test code = 2237) 58 MG/DL RISK RATIO LDL/HDL (test cod e = 2238) 0.84 RATIO Delfino OrtaCOMPREHENSIVE METABOLIC [id number] 00:00:00* Test Item Value Reference Range Interpretation Comme nts GLUCOSE (test code = 2217) 95 MG/DL BUN (test code = 2208) 21 MG/DL CREATININE (test code = 2214) 0.87 MG/DL eGFR AMER. (test cod e = 34459) 87 ML/MIN/1.73 eGFR NON- AMER. (test code = 63322) 75 ML/MIN/1.73 CALC BUN/CREAT (test code = [...] code = 2219) 8 U/L Delfino OrtaURIC [id number] 00:00:00* Test Item Value Reference Range Interpretation Comme nts URIC ACID (test code = 2233) 8.5 MG/DL Delfino OrtaVITAMIN [id number] 00:00:00* Test Item Value Reference Range Interpretation Comme nts VITAMIN B-12 (test code = 2840) 335 PG/ML Delfino OrtaCBC W/AUTO [id number] 00:00:00* Test Item Value Reference Range Interpretation [...] code = 1015) 212 K/UL Delfino OrtaLIPID [id number] 00:00:00* Test Item Value Reference Range Interpretation Comme nts CHOLESTEROL (test code = 2210) 141 MG/DL TRIGLYCERIDES (test code = 2232) 71 MG/DL HDL CHOLESTEROL (test code = 2220) 69 MG/DL CALC LDL CHOL (test code = 2237) 58 MG/DL RISK RATIO LDL/HDL (test cod e = 2238) 0.84 RATIO Delfino OrtaCOMPREHENSIVE METABOLIC [id number] 00:00:00* Test Item Value Reference Range Interpretation Comme nts GLUCOSE (test code = 2217) 95 MG/DL BUN (test code = 2208) 21 MG/DL CREATININE (test code = 2214) 0.87 MG/DL eGFR AMER. (test cod e = 89593) 87 ML/MIN/1.73 eGFR NON- AMER. (test code = 57563) 75 ML/MIN/1.73 CALC BUN/CREAT (test code = [...] code = 2219) 8 U/L Delfino OrtaURIC [id number] 00:00:00* Test Item Value Reference Range Interpretation Comme [facility] URIC ACID (test code = 2233) 8.5 MG/DL Delfino OrtaVITAMIN [id number] 00:00:00* Test Item Value Reference Range Interpretation Comme [facility] VITAMIN B-12 (test code = 2840) 335 PG/ML Delfino OrtaCBC W/AUTO [id number] 00:00:00* Test Item Value Reference Range Interpretation [...] code = 1015) 212 K/UL Delfino OrtaLIPID [id number] 00:00:00* Test Item Value Reference Range Interpretation Comme nts CHOLESTEROL (test code = 2210) 141 MG/DL TRIGLYCERIDES (test code = 2232) 71 MG/DL HDL CHOLESTEROL (test code = 2220) 69 MG/DL CALC LDL CHOL (test code = 2237) 58 MG/DL RISK RATIO LDL/HDL (test cod e = 2238) 0.84 RATIO Delfino OrtaCOMPREHENSIVE METABOLIC [id number] 00:00:00* Test Item Value Reference Range Interpretation Comme nts GLUCOSE (test code = 2217) 95 MG/DL BUN (test code = 2208) 21 MG/DL CREATININE (test code = 2214) 0.87 MG/DL eGFR AMER. (test cod e = 69480) 87 ML/MIN/1.73 eGFR NON- AMER. (test code = 24786) 75 ML/MIN/1.73 CALC BUN/CREAT (test code = [...] code = 2219) 8 U/L Delfino OrtaURIC [id number] 00:00:00* Test Item Value Reference Range Interpretation Comme [facility] URIC ACID (test code = 2233) 8.5 MG/DL Delfino OrtaVITAMIN [id number] 00:00:00* Test Item Value Reference Range Interpretation Comme [facility] VITAMIN B-12 (test code = 2840) 335 PG/ML Delfino OrtaCBC W/AUTO [id number] 00:00:00* Test Item Value Reference Range Interpretation [...] = 1015) 212 K/UL Delfino Schumacher AustinLIPID [id number] 00:00:00* Test Item Value Reference Range Interpretation Comme nts CHOLESTEROL (test code = 2210) 141 MG/DL TRIGLYCERIDES (test code = 2232) 71 MG/DL HDL CHOLESTEROL (test code = 2220) 69 MG/DL CALC LDL CHOL (test code = 2237) 58 MG/DL RISK RATIO LDL/HDL (test cod e = 2238) 0.84 RATIO Delfino OrtaCOMPREHENSIVE METABOLIC [id number] 00:00:00* Test Item Value Reference Range Interpretation Comme nts GLUCOSE (test code = 2217) 95 MG/DL BUN (test code = 2208) 21 MG/DL CREATININE (test code = 2214) 0.87 MG/DL eGFR AMER. (test cod e = 13461) 87 ML/MIN/1.73 eGFR NON- AMER. (test code = 45013) 75 ML/MIN/1.73 CALC BUN/CREAT (test code = [...] code = 2219) 8 U/L Delfino OrtaURIC [id number] 00:00:00* Test Item Value Reference Range Interpretation Comme [facility] URIC ACID (test code = 2233) 8.5 MG/DL Delfino OrtaVITAMIN [id number] 00:00:00* Test Item Value Reference Range Interpretation Comme [facility] VITAMIN B-12 (test code = 2840) 335 PG/ML Delfino OrtaCBC W/AUTO [id number] 00:00:00* Test Item Value Reference Range Interpretation [...] code = 1015) 212 K/UL Delfino OrtaLIPID [id number] 00:00:00* Test Item Value Reference Range Interpretation Comme nts CHOLESTEROL (test code = 2210) 141 MG/DL TRIGLYCERIDES (test code = 2232) 71 MG/DL HDL CHOLESTEROL (test code = 2220) 69 MG/DL CALC LDL CHOL (test code = 2237) 58 MG/DL RISK RATIO LDL/HDL (test cod e = 2238) 0.84 RATIO Delfino OrtaCOMPREHENSIVE METABOLIC [id number] 00:00:00* Test Item Value Reference Range Interpretation Comme [facility] GLUCOSE (test code = 2217) 95 MG/DL BUN (test code = 2208) 21 MG/DL CREATININE (test code = 2214) 0.87 MG/DL eGFR AMER. (test cod e = 98064) 87 ML/MIN/1.73 eGFR NON- AMER. (test code = 89755) 75 ML/MIN/1.73 CALC BUN/CREAT (test code = [...] code = 2219) 8 U/L Delfino OrtaURIC [id number] 00:00:00* Test Item Value Reference Range Interpretation Comme [facility] URIC ACID (test code = 2233) 8.5 MG/DL Delfino OrtaVITAMIN [id number] 00:00:00* Test Item Value Reference Range Interpretation Comme [facility] VITAMIN B-12 (test code = 2840) 335 PG/ML Delfino OrtaCBC W/AUTO [id number] 00:00:00* Test Item Value Reference Range Interpretation Comme [facility] WBC (test code = 1001) 2.9 K/UL [...] code = 1015) 212 K/UL Delfino OrtaLIPID [id number] 00:00:00* Test Item Value Reference Range Interpretation Comme nts CHOLESTEROL (test code = 2210) 141 MG/DL TRIGLYCERIDES (test code = 2232) 71 MG/DL HDL CHOLESTEROL (test code = 2220) 69 MG/DL CALC LDL CHOL (test code = 2237) 58 MG/DL RISK RATIO LDL/HDL (test cod e = 2238) 0.84 RATIO Delfino OrtaCOMPREHENSIVE METABOLIC [id number] 00:00:00* Test Item Value Reference Range Interpretation Comme nts GLUCOSE (test code = 2217) 95 MG/DL BUN (test code = 2208) 21 MG/DL CREATININE (test code = 2214) 0.87 MG/DL eGFR AMER. (test cod e = 29208) 87 ML/MIN/1.73 eGFR NON- AMER. (test code = 24060) 75 ML/MIN/1.73 CALC BUN/CREAT (test code = [...] code = 2219) 8 U/L Delfino OrtaURIC [id number] 00:00:00* Test Item Value Reference Range Interpretation Comme nts URIC ACID (test code = 2233) 8.5 MG/DL Delfino OrtaVITAMIN [id number] 00:00:00* Test Item Value Reference Range Interpretation Comme [facility] VITAMIN B-12 (test code = 2840) 335 PG/ML Delfino OrtaCBC W/AUTO [id number] 00:00:00* Test Item Value Reference Range Interpretation [...] code = 1015) 212 K/UL Delfino OrtaLIPID [id number] 00:00:00* Test Item Value Reference Range Interpretation Comme nts CHOLESTEROL (test code = 2210) 141 MG/DL TRIGLYCERIDES (test code = 2232) 71 MG/DL HDL CHOLESTEROL (test code = 2220) 69 MG/DL CALC LDL CHOL (test code = 2237) 58 MG/DL RISK RATIO LDL/HDL (test cod e = 2238) 0.84 RATIO Delfino OrtaCOMPREHENSIVE METABOLIC [id number] 00:00:00* Test Item Value Reference Range Interpretation Comme nts GLUCOSE (test code = 2217) 95 MG/DL BUN (test code = 2208) 21 MG/DL CREATININE (test code = 2214) 0.87 MG/DL eGFR AMER. (test cod e = 25868) 87 ML/MIN/1.73 eGFR NON- AMER. (test code = 11524) 75 ML/MIN/1.73 CALC BUN/CREAT (test code = [...] code = 2219) 8 U/L Delfino OrtaURIC [id number] 00:00:00* Test Item Value Reference Range Interpretation Comme [facility] URIC ACID (test code = 2233) 8.5 MG/DL Delfino OrtaVITAMIN [id number] 00:00:00* Test Item Value Reference Range Interpretation Comme [facility] VITAMIN B-12 (test code = 2840) 335 PG/ML Delfino OrtaCBC W/AUTO [id number] 00:00:00* Test Item Value Reference Range Interpretation [...] code = 1015) 212 K/UL Delfino OrtaLIPID [id number] 00:00:00* Test Item Value Reference Range Interpretation Comme nts CHOLESTEROL (test code = 2210) 141 MG/DL TRIGLYCERIDES (test code = 2232) 71 MG/DL HDL CHOLESTEROL (test code = 2220) 69 MG/DL CALC LDL CHOL (test code = 2237) 58 MG/DL RISK RATIO LDL/HDL (test cod e = 2238) 0.84 RATIO Delfino OrtaCOMPREHENSIVE METABOLIC [id number] 00:00:00* Test Item Value Reference Range Interpretation Comme nts GLUCOSE (test code = 2217) 95 MG/DL BUN (test code = 2208) 21 MG/DL CREATININE (test code = 2214) 0.87 MG/DL eGFR AMER. (test cod e = 55443) 87 ML/MIN/1.73 eGFR NON- AMER. (test code = 69265) 75 ML/MIN/1.73 CALC BUN/CREAT (test code = [...] code = 2219) 8 U/L Delfino OrtaURIC [id number] 00:00:00* Test Item Value Reference Range Interpretation Comme carlito URIC ACID (test code = 2233) 8.5 MG/DL Delfino OrtaVITAMIN [id number] 00:00:00* Test Item Value Reference Range Interpretation Comme carlito VITAMIN B-12 (test code = 2840) 335 PG/ML Delfino OrtaCBC W/AUTO [id number] 00:00:00* Test Item Value Reference Range Interpretation [...] = 1015) 212 K/UL Delfino Schumacher YouLIPID [id number] 00:00:00* Test Item Value Reference Range Interpretation Comme nts CHOLESTEROL (test code = 2210) 141 MG/DL TRIGLYCERIDES (test code = 2232) 71 MG/DL HDL CHOLESTEROL (test code = 2220) 69 MG/DL CALC LDL CHOL (test code = 2237) 58 MG/DL RISK RATIO LDL/HDL (test cod e = 2238) 0.84 RATIO Delfino Schumacher YouCOMPREHENSIVE METABOLIC [id number] 00:00:00* Test Item Value Reference Range Interpretation Comme nts GLUCOSE (test code = 2217) 95 MG/DL BUN (test code = 2208) 21 MG/DL CREATININE (test code = 2214) 0.87 MG/DL eGFR AMER. (test cod e = 00191) 87 ML/MIN/1.73 eGFR NON- AMER. (test code = 38317) 75 ML/MIN/1.73 CALC BUN/CREAT (test code = [...] code = 2219) 8 U/L Delfino OrtaURIC [id number] 00:00:00* Test Item Value Reference Range Interpretation Comme carlito URIC ACID (test code = 2233) 8.5 MG/DL Delfino OrtaVITAMIN [id number] 00:00:00* Test Item Value Reference Range Interpretation Comme carlito VITAMIN B-12 (test code = 2840) 335 PG/ML Delfino OrtaCBC W/AUTO [id number] 00:00:00* Test Item Value Reference Range Interpretation [...] code = 1015) 212 K/UL Delfino OrtaLIPID [id number] 00:00:00* Test Item Value Reference Range Interpretation Comme nts CHOLESTEROL (test code = 2210) 141 MG/DL TRIGLYCERIDES (test code = 2232) 71 MG/DL HDL CHOLESTEROL (test code = 2220) 69 MG/DL CALC LDL CHOL (test code = 2237) 58 MG/DL RISK RATIO LDL/HDL (test cod e = 2238) 0.84 RATIO Delfino OrtaCOMPREHENSIVE METABOLIC [id number] 00:00:00* Test Item Value Reference Range Interpretation Comme nts GLUCOSE (test code = 2217) 95 MG/DL BUN (test code = 2208) 21 MG/DL CREATININE (test code = 2214) 0.87 MG/DL eGFR AMER. (test cod e = 97921) 87 ML/MIN/1.73 eGFR NON- AMER. (test code = 19428) 75 ML/MIN/1.73 CALC BUN/CREAT (test code = [...] code = 2219) 8 U/L Delfino OrtaURIC [id number] 00:00:00* Test Item Value Reference Range Interpretation Comme [facility] URIC ACID (test code = 2233) 8.5 MG/DL Delfino OrtaVITAMIN [id number] 00:00:00* Test Item Value Reference Range Interpretation Comme [facility] VITAMIN B-12 (test code = 2840) 335 PG/ML Delfino OrtaCBC W/AUTO [id number] 00:00:00* Test Item Value Reference Range Interpretation [...] code = 1015) 212 K/UL Delfino OrtaLIPID [id number] 00:00:00* Test Item Value Reference Range Interpretation Comme nts CHOLESTEROL (test code = 2210) 141 MG/DL TRIGLYCERIDES (test code = 2232) 71 MG/DL HDL CHOLESTEROL (test code = 2220) 69 MG/DL CALC LDL CHOL (test code = 2237) 58 MG/DL RISK RATIO LDL/HDL (test cod e = 2238) 0.84 RATIO Delfino OrtaCOMPREHENSIVE METABOLIC [id number] 00:00:00* Test Item Value Reference Range Interpretation Comme nts GLUCOSE (test code = 2217) 95 MG/DL BUN (test code = 2208) 21 MG/DL CREATININE (test code = 2214) 0.87 MG/DL eGFR AMER. (test cod e = 92334) 87 ML/MIN/1.73 eGFR NON- AMER. (test code = 24099) 75 ML/MIN/1.73 CALC BUN/CREAT (test code = [...] code = 2219) 8 U/L Delfino OrtaURIC [id number] 00:00:00* Test Item Value Reference Range Interpretation Comme nts URIC ACID (test code = 2233) 8.5 MG/DL Delfino OrtaVITAMIN [id number] 00:00:00* Test Item Value Reference Range Interpretation Comme nts VITAMIN B-12 (test code = 2840) 335 PG/ML Delfino OrtaCBC W/AUTO [id number] 00:00:00* Test Item Value Reference Range Interpretation [...] = 1015) 212 K/UL Delfino Schumacher AustinLIPID [id number] 00:00:00* Test Item Value Reference Range Interpretation Comme nts CHOLESTEROL (test code = 2210) 141 MG/DL TRIGLYCERIDES (test code = 2232) 71 MG/DL HDL CHOLESTEROL (test code = 2220) 69 MG/DL CALC LDL CHOL (test code = 2237) 58 MG/DL RISK RATIO LDL/HDL (test cod e = 2238) 0.84 RATIO Delfino Schumacher YouCOMPREHENSIVE METABOLIC [id number] 00:00:00* Test Item Value Reference Range Interpretation Comme nts GLUCOSE (test code = 2217) 95 MG/DL BUN (test code = 2208) 21 MG/DL CREATININE (test code = 2214) 0.87 MG/DL eGFR AMER. (test cod e = 51835) 87 ML/MIN/1.73 eGFR NON- AMER. (test code = 42859) 75 ML/MIN/1.73 CALC BUN/CREAT (test code = [...] code = 2219) 8 U/L Delfino OrtaURIC [id number] 00:00:00* Test Item Value Reference Range Interpretation Comme nts URIC ACID (test code = 2233) 8.5 MG/DL Delfino OrtaVITAMIN [id number] 00:00:00* Test Item Value Reference Range Interpretation Comme [facility] VITAMIN B-12 (test code = 2840) 335 PG/ML Delfino OrtaCBC W/AUTO [id number] 00:00:00* Test Item Value Reference Range Interpretation [...] code = 1015) 212 K/UL Delfino OrtaLIPID [id number] 00:00:00* Test Item Value Reference Range Interpretation Comme nts CHOLESTEROL (test code = 2210) 141 MG/DL TRIGLYCERIDES (test code = 2232) 71 MG/DL HDL CHOLESTEROL (test code = 2220) 69 MG/DL CALC LDL CHOL (test code = 2237) 58 MG/DL RISK RATIO LDL/HDL (test cod e = 2238) 0.84 RATIO Delfino OrtaCOMPREHENSIVE METABOLIC [id number] 00:00:00* Test Item Value Reference Range Interpretation Comme nts GLUCOSE (test code = 2217) 95 MG/DL BUN (test code = 2208) 21 MG/DL CREATININE (test code = 2214) 0.87 MG/DL eGFR AMER. (test cod e = 48876) 87 ML/MIN/1.73 eGFR NON- AMER. (test code = 74108) 75 ML/MIN/1.73 CALC BUN/CREAT (test code = [...] code = 2219) 8 U/L Delfino OrtaURIC [id number] 00:00:00* Test Item Value Reference Range Interpretation Comme nts URIC ACID (test code = 2233) 8.5 MG/DL Delfino OrtaVITAMIN [id number] 00:00:00* Test Item Value Reference Range Interpretation Comme [facility] VITAMIN B-12 (test code = 2840) 335 PG/ML Delfino OrtaCBC W/AUTO [id number] 00:00:00* Test Item Value Reference Range Interpretation [...] code = 1015) 212 K/UL Delfino OrtaLIPID [id number] 00:00:00* Test Item Value Reference Range Interpretation Comme nts CHOLESTEROL (test code = 2210) 141 MG/DL TRIGLYCERIDES (test code = 2232) 71 MG/DL HDL CHOLESTEROL (test code = 2220) 69 MG/DL CALC LDL CHOL (test code = 2237) 58 MG/DL RISK RATIO LDL/HDL (test cod e = 2238) 0.84 RATIO Delfino OrtaCOMPREHENSIVE METABOLIC [id number] 00:00:00* Test Item Value Reference Range Interpretation Comme nts GLUCOSE (test code = 2217) 95 MG/DL BUN (test code = 2208) 21 MG/DL CREATININE (test code = 2214) 0.87 MG/DL eGFR AMER. (test cod e = 02800) 87 ML/MIN/1.73 eGFR NON- AMER. (test code = 13504) 75 ML/MIN/1.73 CALC BUN/CREAT (test code = [...] code = 2219) 8 U/L Delfino OrtaURIC [id number] 00:00:00* Test Item Value Reference Range Interpretation Comme nts URIC ACID (test code = 2233) 8.5 MG/DL Delfino OrtaVITAMIN [id number] 00:00:00* Test Item Value Reference Range Interpretation Comme [facility] VITAMIN B-12 (test code = 2840) 335 PG/ML Delfino OrtaCBC W/AUTO [id number] 00:00:00* Test Item Value Reference Range Interpretation [...] code = 1015) 212 K/UL Delfino OrtaLIPID [id number] 00:00:00* Test Item Value Reference Range Interpretation Comme nts CHOLESTEROL (test code = 2210) 141 MG/DL TRIGLYCERIDES (test code = 2232) 71 MG/DL HDL CHOLESTEROL (test code = 2220) 69 MG/DL CALC LDL CHOL (test code = 2237) 58 MG/DL RISK RATIO LDL/HDL (test cod e = 2238) 0.84 RATIO Delfino OrtaCOMPREHENSIVE METABOLIC [id number] 00:00:00* Test Item Value Reference Range Interpretation Comme nts GLUCOSE (test code = 2217) 95 MG/DL BUN (test code = 2208) 21 MG/DL CREATININE (test code = 2214) 0.87 MG/DL eGFR AMER. (test cod e = 09107) 87 ML/MIN/1.73 eGFR NON- AMER. (test code = 91743) 75 ML/MIN/1.73 CALC BUN/CREAT (test code = [...] code = 2219) 8 U/L Delfino OrtaURIC [id number] 00:00:00* Test Item Value Reference Range Interpretation Comme [facility] URIC ACID (test code = 2233) 8.5 MG/DL Delfino OrtaVITAMIN [id number] 00:00:00* Test Item Value Reference Range Interpretation Comme [facility] VITAMIN B-12 (test code = 2840) 335 PG/ML Delfino OrtaCBC W/AUTO [id number] 00:00:00* Test Item Value Reference Range Interpretation [...] code = 1015) 212 K/UL Delfino OrtaLIPID [id number] 00:00:00* Test Item Value Reference Range Interpretation Comme nts CHOLESTEROL (test code = 2210) 141 MG/DL TRIGLYCERIDES (test code = 2232) 71 MG/DL HDL CHOLESTEROL (test code = 2220) 69 MG/DL CALC LDL CHOL (test code = 2237) 58 MG/DL RISK RATIO LDL/HDL (test cod e = 2238) 0.84 RATIO [facility] [id number] 00:00:00* Test Item Value Reference Range Interpretation [...] (test code = 1015) 212 K/UL LIPID [id number] 00:00:00* Test Item Value Reference Range Interpretation Comme nts CHOLESTEROL (test code = 2210) 141 MG/DL TRIGLYCERIDES (test code = 2232) 71 MG/DL HDL CHOLESTEROL (test code = 2220) 69 MG/DL CALC LDL CHOL (test code = 2237) 58 MG/DL RISK RATIO LDL/HDL (test cod e = 2238) 0.84 RATIO CD4/CD8 LYMPHOCYTE [id number] 00:00:00* Test Item Value Reference Range Interpretation Comme nts ABSOLUTE LYMPHOCYTES (test c ode = 73901) 807 PERUL PERCENT CD4 (test code = 93045) 13.1 % ABSOLUTE CD4 (test code = 17002) 105 PERUL PERCENT CD8 (test code = 50442) 61.6 % ABSOLUTE CD8 (test code = 87543) 497 PERUL CD4/CD8 RATIO (test code = 65448) 0.21 CD4/CD8 LYMPHOCYTE [id number] 00:00:00* Test Item Value Reference Range Interpretation Comme nts ABSOLUTE LYMPHOCYTES (test c ode = 62756) 807 PERUL PERCENT CD4 (test code = 58594) 13.1 % ABSOLUTE CD4 (test code = 85743) 105 PERUL PERCENT CD8 (test code = 10628) 61.6 % ABSOLUTE CD8 (test code = 63538) 497 PERUL CD4/CD8 RATIO (test code = 14061) 0.21 CD4/CD8 LYMPHOCYTE [id number] 00:00:00* Test Item Value Reference Range Interpretation Comme nts ABSOLUTE LYMPHOCYTES (test c ode = 61334) 807 PERUL PERCENT CD4 (test code = 88578) 13.1 % ABSOLUTE CD4 (test code = 59718) 105 PERUL PERCENT CD8 (test code = 79051) 61.6 % ABSOLUTE CD8 (test code = 96204) 497 PERUL CD4/CD8 RATIO (test code = 36578) 0.21 CD4/CD8 LYMPHOCYTE [id number] 00:00:00* Test Item Value Reference Range Interpretation Comme nts ABSOLUTE LYMPHOCYTES (test c ode = 90565) 807 PERUL PERCENT CD4 (test code = 02272) 13.1 % ABSOLUTE CD4 (test code = 48993) 105 PERUL PERCENT CD8 (test code = 66794) 61.6 % ABSOLUTE CD8 (test code = 37656) 497 PERUL CD4/CD8 RATIO (test code = 53775) 0.21 Delfino F AustinCD4/CD8 LYMPHOCYTE [id number] 00:00:00* Test Item Value Reference Range Interpretation Comme nts ABSOLUTE LYMPHOCYTES (test c ode = 48018) 807 PERUL PERCENT CD4 (test code = 65698) 13.1 % ABSOLUTE CD4 (test code = 19821) 105 PERUL PERCENT CD8 (test code = 46827) 61.6 % ABSOLUTE CD8 (test code = 53725) 497 PERUL CD4/CD8 RATIO (test code = 44834) 0.21 Delfino F AustinCD4/CD8 LYMPHOCYTE [id number] 00:00:00* Test Item Value Reference Range Interpretation Comme nts ABSOLUTE LYMPHOCYTES (test c ode = 12553) 807 PERUL PERCENT CD4 (test code = 92289) 13.1 % ABSOLUTE CD4 (test code = 22796) 105 PERUL PERCENT CD8 (test code = 70476) 61.6 % ABSOLUTE CD8 (test code = 31598) 497 PERUL CD4/CD8 RATIO (test code = 91894) 0.21 Delfino Schumacher AustinCD4/CD8 LYMPHOCYTE [id number] 00:00:00* Test Item Value Reference Range Interpretation Comme nts ABSOLUTE LYMPHOCYTES (test c ode = 91083) 807 PERUL PERCENT CD4 (test code = 25410) 13.1 % ABSOLUTE CD4 (test code = 35474) 105 PERUL PERCENT CD8 (test code = 04841) 61.6 % ABSOLUTE CD8 (test code = 00523) 497 PERUL CD4/CD8 RATIO (test code = 89616) 0.21 Delfino Schumacher AustinCD4/CD8 LYMPHOCYTE [id number] 00:00:00* Test Item Value Reference Range Interpretation Comme nts ABSOLUTE LYMPHOCYTES (test c ode = 54287) 807 PERUL PERCENT CD4 (test code = 95023) 13.1 % ABSOLUTE CD4 (test code = 86971) 105 PERUL PERCENT CD8 (test code = 28952) 61.6 % ABSOLUTE CD8 (test code = 81845) 497 PERUL CD4/CD8 RATIO (test code = 04708) 0.21 Delfino Schumacher AustinCD4/CD8 LYMPHOCYTE [id number] 00:00:00* Test Item Value Reference Range Interpretation Comme nts ABSOLUTE LYMPHOCYTES (test c ode = 24037) 807 PERUL PERCENT CD4 (test code = 61373) 13.1 % ABSOLUTE CD4 (test code = 67548) 105 PERUL PERCENT CD8 (test code = 29093) 61.6 % ABSOLUTE CD8 (test code = 62816) 497 PERUL CD4/CD8 RATIO (test code = 06380) 0.21 Delfino Schumacher AustinCD4/CD8 LYMPHOCYTE [id number] 00:00:00* Test Item Value Reference Range Interpretation Comme nts ABSOLUTE LYMPHOCYTES (test c ode = 98818) 807 PERUL PERCENT CD4 (test code = 42752) 13.1 % ABSOLUTE CD4 (test code = 30806) 105 PERUL PERCENT CD8 (test code = 97937) 61.6 % ABSOLUTE CD8 (test code = 61949) 497 PERUL CD4/CD8 RATIO (test code = 85511) 0.21 Delfino Schumacher AustinCD4/CD8 LYMPHOCYTE [id number] 00:00:00* Test Item Value Reference Range Interpretation Comme nts ABSOLUTE LYMPHOCYTES (test c ode = 25813) 807 PERUL PERCENT CD4 (test code = 78718) 13.1 % ABSOLUTE CD4 (test code = 68152) 105 PERUL PERCENT CD8 (test code = 17069) 61.6 % ABSOLUTE CD8 (test code = 91761) 497 PERUL CD4/CD8 RATIO (test code = 01379) 0.21 Delfino Schumacher AustinCD4/CD8 LYMPHOCYTE [id number] 00:00:00* Test Item Value Reference Range Interpretation Comme nts ABSOLUTE LYMPHOCYTES (test c ode = 59371) 807 PERUL PERCENT CD4 (test code = 87723) 13.1 % ABSOLUTE CD4 (test code = 38671) 105 PERUL PERCENT CD8 (test code = 43678) 61.6 % ABSOLUTE CD8 (test code = 61204) 497 PERUL CD4/CD8 RATIO (test code = 35520) 0.21 Delfino Schumacher AustinCD4/CD8 LYMPHOCYTE [id number] 00:00:00* Test Item Value Reference Range Interpretation Comme nts ABSOLUTE LYMPHOCYTES (test c ode = 45134) 807 PERUL PERCENT CD4 (test code = 63781) 13.1 % ABSOLUTE CD4 (test code = 41186) 105 PERUL PERCENT CD8 (test code = 50067) 61.6 % ABSOLUTE CD8 (test code = 30297) 497 PERUL CD4/CD8 RATIO (test code = 16585) 0.21 Delfino Schumacher AustinCD4/CD8 LYMPHOCYTE [id number] 00:00:00* Test Item Value Reference Range Interpretation Comme nts ABSOLUTE LYMPHOCYTES (test c ode = 61794) 807 PERUL PERCENT CD4 (test code = 52120) 13.1 % ABSOLUTE CD4 (test code = 18810) 105 PERUL PERCENT CD8 (test code = 28681) 61.6 % ABSOLUTE CD8 (test code = 99328) 497 PERUL CD4/CD8 RATIO (test code = 19315) 0.21 Delfino Schumacher AustinCD4/CD8 LYMPHOCYTE [id number] 00:00:00* Test Item Value Reference Range Interpretation Comme nts ABSOLUTE LYMPHOCYTES (test c ode = 93030) 807 PERUL PERCENT CD4 (test code = 94914) 13.1 % ABSOLUTE CD4 (test code = 69680) 105 PERUL PERCENT CD8 (test code = 35218) 61.6 % ABSOLUTE CD8 (test code = 95683) 497 PERUL CD4/CD8 RATIO (test code = 23046) 0.21 Delfino Schumacher AustinCD4/CD8 LYMPHOCYTE [id number] 00:00:00* Test Item Value Reference Range Interpretation Comme nts ABSOLUTE LYMPHOCYTES (test c ode = 14348) 807 PERUL PERCENT CD4 (test code = 25099) 13.1 % ABSOLUTE CD4 (test code = 46350) 105 PERUL PERCENT CD8 (test code = 53567) 61.6 % ABSOLUTE CD8 (test code = 64697) 497 PERUL CD4/CD8 RATIO (test code = 75370) 0.21 Delfino Schumacher AustinCD4/CD8 LYMPHOCYTE [id number] 00:00:00* Test Item Value Reference Range Interpretation Comme nts ABSOLUTE LYMPHOCYTES (test c ode = 60184) 807 PERUL PERCENT CD4 (test code = 66891) 13.1 % ABSOLUTE CD4 (test code = 15075) 105 PERUL PERCENT CD8 (test code = 63683) 61.6 % ABSOLUTE CD8 (test code = 25288) 497 PERUL CD4/CD8 RATIO (test code = 69285) 0.21 Delfino Schumacher AustinCD4/CD8 LYMPHOCYTE [id number] 00:00:00* Test Item Value Reference Range Interpretation Comme nts ABSOLUTE LYMPHOCYTES (test c ode = 98535) 807 PERUL PERCENT CD4 (test code = 33820) 13.1 % ABSOLUTE CD4 (test code = 90167) 105 PERUL PERCENT CD8 (test code = 74483) 61.6 % ABSOLUTE CD8 (test code = 91650) 497 PERUL CD4/CD8 RATIO (test code = 04687) 0.21 Delfino Schumacher AustinCD4/CD8 LYMPHOCYTE [id number] 00:00:00* Test Item Value Reference Range Interpretation Comme nts ABSOLUTE LYMPHOCYTES (test c ode = 11292) 807 PERUL PERCENT CD4 (test code = 55516) 13.1 % ABSOLUTE CD4 (test code = 25342) 105 PERUL PERCENT CD8 (test code = 65040) 61.6 % ABSOLUTE CD8 (test code = 18533) 497 PERUL CD4/CD8 RATIO (test code = 58781) 0.21 Delfino Schumacher AustinCD4/CD8 LYMPHOCYTE [id number] 00:00:00* Test Item Value Reference Range Interpretation Comme nts ABSOLUTE LYMPHOCYTES (test c ode = 78213) 807 PERUL PERCENT CD4 (test code = 53376) 13.1 % ABSOLUTE CD4 (test code = 07559) 105 PERUL PERCENT CD8 (test code = 84472) 61.6 % ABSOLUTE CD8 (test code = 90122) 497 PERUL CD4/CD8 RATIO (test code = 73177) 0.21 Delfino Schumacher AustinCD4/CD8 LYMPHOCYTE [id number] 00:00:00* Test Item Value Reference Range Interpretation Comme nts ABSOLUTE LYMPHOCYTES (test c ode = 04187) 807 PERUL PERCENT CD4 (test code = 88083) 13.1 % ABSOLUTE CD4 (test code = 26007) 105 PERUL PERCENT CD8 (test code = 09060) 61.6 % ABSOLUTE CD8 (test code = 34299) 497 PERUL CD4/CD8 RATIO (test code = 38488) 0.21 Delfino Schumacher AustinCD4/CD8 LYMPHOCYTE [id number] 00:00:00* Test Item Value Reference Range Interpretation Comme nts ABSOLUTE LYMPHOCYTES (test c ode = 55832) 807 PERUL PERCENT CD4 (test code = 46905) 13.1 % ABSOLUTE CD4 (test code = 46313) 105 PERUL PERCENT CD8 (test code = 48707) 61.6 % ABSOLUTE CD8 (test code = 87089) 497 PERUL CD4/CD8 RATIO (test code = 26091) 0.21 Delfino Schumacher AustinCD4/CD8 LYMPHOCYTE [id number] 00:00:00* Test Item Value Reference Range Interpretation Comme nts ABSOLUTE LYMPHOCYTES (test c ode = 19872) 807 PERUL PERCENT CD4 (test code = 40627) 13.1 % ABSOLUTE CD4 (test code = 85718) 105 PERUL PERCENT CD8 (test code = 79426) 61.6 % ABSOLUTE CD8 (test code = 15830) 497 PERUL CD4/CD8 RATIO (test code = 58132) 0.21 Delfino Schumacher AustinCD4/CD8 LYMPHOCYTE [id number] 00:00:00* Test Item Value Reference Range Interpretation Comme nts ABSOLUTE LYMPHOCYTES (test c ode = 70106) 807 PERUL PERCENT CD4 (test code = 37940) 13.1 % ABSOLUTE CD4 (test code = 02106) 105 PERUL PERCENT CD8 (test code = 31494) 61.6 % ABSOLUTE CD8 (test code = 08387) 497 PERUL CD4/CD8 RATIO (test code = 50058) 0.21 Delfino Schumacher AustinCD4/CD8 LYMPHOCYTE [id number] 00:00:00* Test Item Value Reference Range Interpretation Comme nts ABSOLUTE LYMPHOCYTES (test c ode = 67032) 807 PERUL PERCENT CD4 (test code = 61634) 13.1 % ABSOLUTE CD4 (test code = 47664) 105 PERUL PERCENT CD8 (test code = 70811) 61.6 % ABSOLUTE CD8 (test code = 52620) 497 PERUL CD4/CD8 RATIO (test code = 94713) 0.21 Delfino Schumacher AustinCD4/CD8 LYMPHOCYTE [id number] 00:00:00* Test Item Value Reference Range Interpretation Comme nts ABSOLUTE LYMPHOCYTES (test c ode = 56453) 807 PERUL PERCENT CD4 (test code = 65103) 13.1 % ABSOLUTE CD4 (test code = 60650) 105 PERUL PERCENT CD8 (test code = 42072) 61.6 % ABSOLUTE CD8 (test code = 14388) 497 PERUL CD4/CD8 RATIO (test code = 07296) 0.21 Delfino Schumacher AustinCD4/CD8 LYMPHOCYTE [id number] 00:00:00* Test Item Value Reference Range Interpretation Comme nts ABSOLUTE LYMPHOCYTES (test c ode = 39798) 807 PERUL PERCENT CD4 (test code = 26481) 13.1 % ABSOLUTE CD4 (test code = 17106) 105 PERUL PERCENT CD8 (test code = 42835) 61.6 % ABSOLUTE CD8 (test code = 75083) 497 PERUL CD4/CD8 RATIO (test code = 46830) 0.21 Delfino Schumacher AustinCD4/CD8 LYMPHOCYTE [id number] 00:00:00* Test Item Value Reference Range Interpretation Comme nts ABSOLUTE LYMPHOCYTES (test c ode = 99822) 807 PERUL PERCENT CD4 (test code = 16234) 13.1 % ABSOLUTE CD4 (test code = 60728) 105 PERUL PERCENT CD8 (test code = 58999) 61.6 % ABSOLUTE CD8 (test code = 97003) 497 PERUL CD4/CD8 RATIO (test code = 55665) 0.21 Delfino Schumacher AustinCD4/CD8 LYMPHOCYTE [id number] 00:00:00* Test Item Value Reference Range Interpretation Comme nts ABSOLUTE LYMPHOCYTES (test c ode = 26196) 807 PERUL PERCENT CD4 (test code = 64843) 13.1 % ABSOLUTE CD4 (test code = 23604) 105 PERUL PERCENT CD8 (test code = 66902) 61.6 % ABSOLUTE CD8 (test code = 41635) 497 PERUL CD4/CD8 RATIO (test code = 68749) 0.21 Delfino Schumacher AustinCD4/CD8 LYMPHOCYTE [id number] 00:00:00* Test Item Value Reference Range Interpretation Comme nts ABSOLUTE LYMPHOCYTES (test c ode = 64474) 807 PERUL PERCENT CD4 (test code = 67345) 13.1 % ABSOLUTE CD4 (test code = 14662) 105 PERUL PERCENT CD8 (test code = 57313) 61.6 % ABSOLUTE CD8 (test code = 13033) 497 PERUL CD4/CD8 RATIO (test code = 05048) 0.21 Delfino Schumacher AustinCD4/CD8 LYMPHOCYTE [id number] 00:00:00* Test Item Value Reference Range Interpretation Comme nts ABSOLUTE LYMPHOCYTES (test c ode = 81284) 807 PERUL PERCENT CD4 (test code = 21121) 13.1 % ABSOLUTE CD4 (test code = 20782) 105 PERUL PERCENT CD8 (test code = 12664) 61.6 % ABSOLUTE CD8 (test code = 17667) 497 PERUL CD4/CD8 RATIO (test code = 34211) 0.21 Delfino Schumacher AustinCD4/CD8 LYMPHOCYTE [id number] 00:00:00* Test Item Value Reference Range Interpretation Comme nts ABSOLUTE LYMPHOCYTES (test c ode = 97614) 807 PERUL PERCENT CD4 (test code = 44572) 13.1 % ABSOLUTE CD4 (test code = 01893) 105 PERUL PERCENT CD8 (test code = 89308) 61.6 % ABSOLUTE CD8 (test code = 23272) 497 PERUL CD4/CD8 RATIO (test code = 48812) 0.21 Delfino Schumacher AustinCD4/CD8 LYMPHOCYTE [id number] 00:00:00* Test Item Value Reference Range Interpretation Comme nts ABSOLUTE LYMPHOCYTES (test c ode = 20964) 807 PERUL PERCENT CD4 (test code = 42583) 13.1 % ABSOLUTE CD4 (test code = 99892) 105 PERUL PERCENT CD8 (test code = 95217) 61.6 % ABSOLUTE CD8 (test code = 50505) 497 PERUL CD4/CD8 RATIO (test code = 36692) 0.21 Delfino Schumacher AustinCD4/CD8 LYMPHOCYTE [id number] 00:00:00* Test Item Value Reference Range Interpretation Comme nts ABSOLUTE LYMPHOCYTES (test c ode = 16558) 807 PERUL PERCENT CD4 (test code = 12536) 13.1 % ABSOLUTE CD4 (test code = 31695) 105 PERUL PERCENT CD8 (test code = 76449) 61.6 % ABSOLUTE CD8 (test code = 05283) 497 PERUL CD4/CD8 RATIO (test code = 13659) 0.21 Delfino Schumacher AustinCD4/CD8 LYMPHOCYTE [id number] 00:00:00* Test Item Value Reference Range Interpretation Comme nts ABSOLUTE LYMPHOCYTES (test c ode = 55589) 807 PERUL PERCENT CD4 (test code = 65293) 13.1 % ABSOLUTE CD4 (test code = 60526) 105 PERUL PERCENT CD8 (test code = 77224) 61.6 % ABSOLUTE CD8 (test code = 76143) 497 PERUL CD4/CD8 RATIO (test code = 06217) 0.21 Delfino Schumacher AustinCD4/CD8 LYMPHOCYTE [id number] 00:00:00* Test Item Value Reference Range Interpretation Comme nts ABSOLUTE LYMPHOCYTES (test c ode = 09995) 807 PERUL PERCENT CD4 (test code = 17050) 13.1 % ABSOLUTE CD4 (test code = 57196) 105 PERUL PERCENT CD8 (test code = 25289) 61.6 % ABSOLUTE CD8 (test code = 71287) 497 PERUL CD4/CD8 RATIO (test code = 58255) 0.21 Delfino Schumacher AustinCD4/CD8 LYMPHOCYTE [id number] 00:00:00* Test Item Value Reference Range Interpretation Comme nts ABSOLUTE LYMPHOCYTES (test c ode = 72540) 807 PERUL PERCENT CD4 (test code = 43646) 13.1 % ABSOLUTE CD4 (test code = 55614) 105 PERUL PERCENT CD8 (test code = 68228) 61.6 % ABSOLUTE CD8 (test code = 40626) 497 PERUL CD4/CD8 RATIO (test code = 65394) 0.21 Delfino Schumacher AustinCD4/CD8 LYMPHOCYTE [id number] 00:00:00* Test Item Value Reference Range Interpretation Comme nts ABSOLUTE LYMPHOCYTES (test c ode = 06145) 807 PERUL PERCENT CD4 (test code = 35336) 13.1 % ABSOLUTE CD4 (test code = 14480) 105 PERUL PERCENT CD8 (test code = 16123) 61.6 % ABSOLUTE CD8 (test code = 86025) 497 PERUL CD4/CD8 RATIO (test code = 24118) 0.21 VITAMIN [id number] 00:00:00* Test Item Value Reference Range Interpretation Comme nts VITAMIN B-12 (test code = 2840) 358 PG/ML VITAMIN [id number] 00:00:00* Test Item Value Reference Range Interpretation Comme nts VITAMIN B-12 (test code = 2840) 358 PG/ML VITAMIN [id number] 00:00:00* Test Item Value Reference Range Interpretation Comme nts VITAMIN B-12 (test code = 2840) 358 PG/ML VITAMIN [id number] 00:00:00* Test Item Value Reference Range Interpretation Comme nts VITAMIN B-12 (test code = 2840) 358 PG/ML Delfino Schumacher AustinVITAMIN [id number] 00:00:00* Test Item Value Reference Range Interpretation Comme nts VITAMIN B-12 (test code = 2840) 358 PG/ML Delfino Schumacher AustinV[place]AMIN [id number] 00:00:00* Test Item Value Reference Range Interpretation Comme nts VITAMIN B-12 (test code = 2840) 358 PG/ML Delfino Schumacher [place]AM[place] [id number] 00:00:00* Test Item Value Reference Range Interpretation Comme nts VITAMIN B-12 (test code = 2840) 358 PG/ML Delfino Schumacher AustinVITAMIN [id number] 00:00:00* Test Item Value Reference Range Interpretation Comme nts VITAMIN B-12 (test code = 2840) 358 PG/ML Delfino Schumacher AustinV[place] [id number] 00:00:00* Test Item Value Reference Range Interpretation Comme nts VITAMIN B-12 (test code = 2840) 358 PG/ML Delfino Schumacher [place] [id number] 00:00:00* Test Item Value Reference Range Interpretation Comme nts VITAMIN B-12 (test code = 2840) 358 PG/ML Delfino Schumacher [place] [id number] 00:00:00* Test Item Value Reference Range Interpretation Comme nts VITAMIN B-12 (test code = 2840) 358 PG/ML Delfino Schumacher [place] [id number] 00:00:00* Test Item Value Reference Range Interpretation Comme nts VITAMIN B-12 (test code = 2840) 358 PG/ML Delfino Schumacher [facility] [id number] 00:00:00* Test Item Value Reference Range Interpretation Comme nts VITAMIN B-12 (test code = 2840) 358 PG/ML Delfino Schumacher [facility] [id number] 00:00:00* Test Item Value Reference Range Interpretation Comme nts VITAMIN B-12 (test code = 2840) 358 PG/ML Delfino Schumacher [facility] [id number] 00:00:00* Test Item Value Reference Range Interpretation Comme nts VITAMIN B-12 (test code = 2840) 358 PG/ML Delfino Schumacher [facility] [id number] 00:00:00* Test Item Value Reference Range Interpretation Comme nts VITAMIN B-12 (test code = 2840) 358 PG/ML Delfino Schumacher [facility] [id number] 00:00:00* Test Item Value Reference Range Interpretation Comme nts VITAMIN B-12 (test code = 2840) 358 PG/ML Delfino Schumacher [facility] [id number] 00:00:00* Test Item Value Reference Range Interpretation Comme nts VITAMIN B-12 (test code = 2840) 358 PG/ML Delfino Schumacher [facility] [id number] 00:00:00* Test Item Value Reference Range Interpretation Comme nts VITAMIN B-12 (test code = 2840) 358 PG/ML Delfino Schumacher [facility] [id number] 00:00:00* Test Item Value Reference Range Interpretation Comme nts VITAMIN B-12 (test code = 2840) 358 PG/ML Delfino Schumacher [facility] [id number] 00:00:00* Test Item Value Reference Range Interpretation Comme nts VITAMIN B-12 (test code = 2840) 358 PG/ML Delfino Schumacher [facility] [id number] 00:00:00* Test Item Value Reference Range Interpretation Comme nts VITAMIN B-12 (test code = 2840) 358 PG/ML Delfino Schumacher [facility] [id number] 00:00:00* Test Item Value Reference Range Interpretation Comme nts VITAMIN B-12 (test code = 2840) 358 PG/ML Delfino Schumacher [facility] [id number] 00:00:00* Test Item Value Reference Range Interpretation Comme nts VITAMIN B-12 (test code = 2840) 358 PG/ML Delfino Schumacher [facility] [id number] 00:00:00* Test Item Value Reference Range Interpretation Comme nts VITAMIN B-12 (test code = 2840) 358 PG/ML Delfino Schumacher [facility] [id number] 00:00:00* Test Item Value Reference Range Interpretation Comme nts VITAMIN B-12 (test code = 2840) 358 PG/ML Delfino Schumacher [facility] [id number] 00:00:00* Test Item Value Reference Range Interpretation Comme nts VITAMIN B-12 (test code = 2840) 358 PG/ML Delfino Schumacher [facility] [id number] 00:00:00* Test Item Value Reference Range Interpretation Comme nts VITAMIN B-12 (test code = 2840) 358 PG/ML Delfino Schumacher [facility] [id number] 00:00:00* Test Item Value Reference Range Interpretation Comme nts VITAMIN B-12 (test code = 2840) 358 PG/ML Delfino Schumacher [facility] [id number] 00:00:00* Test Item Value Reference Range Interpretation Comme nts VITAMIN B-12 (test code = 2840) 358 PG/ML Delfino Schumacher [facility] [id number] 00:00:00* Test Item Value Reference Range Interpretation Comme nts VITAMIN B-12 (test code = 2840) 358 PG/ML Delfino Schumacher [facility] [id number] 00:00:00* Test Item Value Reference Range Interpretation Comme nts VITAMIN B-12 (test code = 2840) 358 PG/ML Delfino Schumacher [facility] [id number] 00:00:00* Test Item Value Reference Range Interpretation Comme nts VITAMIN B-12 (test code = 2840) 358 PG/ML Delfino Schumacher [facility] [id number] 00:00:00* Test Item Value Reference Range Interpretation Comme nts VITAMIN B-12 (test code = 2840) 358 PG/ML Delfino Schumacher [facility] [id number] 00:00:00* Test Item Value Reference Range Interpretation Comme nts VITAMIN B-12 (test code = 2840) 358 PG/ML Delfino Schumacher [facility] [id number] 00:00:00* Test Item Value Reference Range Interpretation Comme nts VITAMIN B-12 (test code = 2840) 358 PG/ML Delfino Schumacher [facility] [id number] 00:00:00* Test Item Value Reference Range Interpretation Comme nts VITAMIN B-12 (test code = 2840) 358 PG/ML Delfino Schumacher [facility] [id number] 00:00:00* Test Item Value Reference Range Interpretation Comme nts VITAMIN B-12 (test code = 2840) 358 PG/ML IRON BINDING CAPACITY AND IRON AND % SATURATION [ADDED]2018-09-09 00:00:00* Test Item Value Reference Range Interpretation Comme nts IRON, SERUM (test code = 2222) 32 UG/DL UNSATURATED IBC (test code = 95075) 326 UG/DL CALC TOTAL IBC (test code [...] 32 UG/DL UNSATURATED IBC (test code = 09295) 326 UG/DL CALC TOTAL IBC (test code [...] 32 UG/DL UNSATURATED IBC (test code = 64599) 326 UG/DL CALC TOTAL IBC (test code [...] 32 UG/DL UNSATURATED IBC (test code = 33896) 326 UG/DL CALC TOTAL IBC (test code = 2076) 358 UG/DL CALC % IRON SAT (test code = 2078) 9 % FERRITIN [ADDED]2018-09-09 00:00:00* Test Item [...] 32 UG/DL UNSATURATED IBC (test code = 82118) 326 UG/DL CALC TOTAL IBC (test code [...] 32 UG/DL UNSATURATED IBC (test code = 78276) 326 UG/DL CALC TOTAL IBC (test code [...] 32 UG/DL UNSATURATED IBC (test code = 35256) 326 UG/DL CALC TOTAL IBC (test code [...] 32 UG/DL UNSATURATED IBC (test code = 84911) 326 UG/DL CALC TOTAL IBC (test code [...] 32 UG/DL UNSATURATED IBC (test code = 45555) 326 UG/DL CALC TOTAL IBC (test code = 7) 358 UG/DL CALC % IRON SAT (test code = 9) 9 % Delfino Endy [facility] B 12 [...] 32 UG/DL UNSATURATED IBC (test code = 77422) 326 UG/DL CALC TOTAL IBC (test code = 7) 358 UG/DL CALC % IRON SAT (test code = 9) 9 % Delfino Endy [facility]ERRITIN [ADDED]2018-09-09 00:00:00* Test Item Value Reference Range Interpretation Comme nts FERRITIN (test code = 5) 19 NG/ML Delfino Schumacher YouTRANSFERRIN [ADDED]2018-09-09 00:00:00* [...] 32 UG/DL UNSATURATED IBC (test code = 38059) 326 UG/DL CALC TOTAL IBC (test code [...] 32 UG/DL UNSATURATED IBC (test code = 63998) 326 UG/DL CALC TOTAL IBC (test code [...] 32 UG/DL UNSATURATED IBC (test code = 31716) 326 UG/DL CALC TOTAL IBC (test code [...] 32 UG/DL UNSATURATED IBC (test code = 70547) 326 UG/DL CALC TOTAL IBC (test code [...] 32 UG/DL UNSATURATED IBC (test code = 77528) 326 UG/DL CALC TOTAL IBC (test code [...] 32 UG/DL UNSATURATED IBC (test code = 06190) 326 UG/DL CALC TOTAL IBC (test code [...] 32 UG/DL UNSATURATED IBC (test code = 80523) 326 UG/DL CALC TOTAL IBC (test code [...] 32 UG/DL UNSATURATED IBC (test code = 17402) 326 UG/DL CALC TOTAL IBC (test code [...] 32 UG/DL UNSATURATED IBC (test code = 56338) 326 UG/DL CALC TOTAL IBC (test code [...] 32 UG/DL UNSATURATED IBC (test code = 17894) 326 UG/DL CALC TOTAL IBC (test code [...] 32 UG/DL UNSATURATED IBC (test code = 13259) 326 UG/DL CALC TOTAL IBC (test code [...] 32 UG/DL UNSATURATED IBC (test code = 77234) 326 UG/DL CALC TOTAL IBC (test code [...] 32 UG/DL UNSATURATED IBC (test code = 06199) 326 UG/DL CALC TOTAL IBC (test code [...] 32 UG/DL UNSATURATED IBC (test code = 71498) 326 UG/DL CALC TOTAL IBC (test code [...] 32 UG/DL UNSATURATED IBC (test code = 21005) 326 UG/DL CALC TOTAL IBC (test code [...] 32 UG/DL UNSATURATED IBC (test code = 30304) 326 UG/DL CALC TOTAL IBC (test code [...] 32 UG/DL UNSATURATED IBC (test code = 60656) 326 UG/DL CALC TOTAL IBC (test code [...] 32 UG/DL UNSATURATED IBC (test code = 36558) 326 UG/DL CALC TOTAL IBC (test code [...] 32 UG/DL UNSATURATED IBC (test code = 84315) 326 UG/DL CALC TOTAL IBC (test code [...] 32 UG/DL UNSATURATED IBC (test code = 53589) 326 UG/DL CALC TOTAL IBC (test code [...] 32 UG/DL UNSATURATED IBC (test code = 61290) 326 UG/DL CALC TOTAL IBC (test code [...] 32 UG/DL UNSATURATED IBC (test code = 09572) 326 UG/DL CALC TOTAL IBC (test code [...] 32 UG/DL UNSATURATED IBC (test code = 75710) 326 UG/DL CALC TOTAL IBC (test code [...] 32 UG/DL UNSATURATED IBC (test code = 95582) 326 UG/DL CALC TOTAL IBC (test code [...] 32 UG/DL UNSATURATED IBC (test code = 40820) 326 UG/DL CALC TOTAL IBC (test code [...] 32 UG/DL UNSATURATED IBC (test code = 70257) 326 UG/DL CALC TOTAL IBC (test code = 2077) 358 UG/DL CALC % IRON SAT (test code = 2079) 9 % Delfino Schumacher YouFERRITIN [ADDED]2018-09-09 00:00:00* Test Item Value Reference Range Interpretation Comme nts FERRITIN (test code = 2075) 19 NG/ML Delfino Schumacher YouTRANSFERRIN [ADDED]2018-09-09 00:00:00* Test Item Value Reference Range Interpretation Comme nts TRANSFERRIN (test code = 4936) 298 MG/DL Delfino F YouCBC W/AUTO DIFF WITH PLATELETS [...] 32 UG/DL UNSATURATED IBC (test code = 98436) 326 UG/DL CALC TOTAL IBC (test code [...] 32 UG/DL UNSATURATED IBC (test code = 26619) 326 UG/DL CALC TOTAL IBC (test code [...] ACID (test code = 2695) 9.9 UG/L COMPREHENSIVE METABOLIC [id number] 00:00:00* Test Item Value Reference Range Interpretation Comme nts GLUCOSE (test code = 2217) 84 MG/DL BUN (test code = 2208) 12 MG/DL CREATININE (test code = 2214) 1.02 MG/DL eGFR AMER. (test cod e = 18174) 72 ML/MIN/1.73 eGFR NON- AMER. (test code = 05454) 62 ML/MIN/1.73 CALC BUN/CREAT (test code = [...] (test code = 2219) 9 U/L URIC [id number] 00:00:00* Test Item Value Reference Range Interpretation Comme nts URIC ACID (test code = 2233) 7.8 MG/DL CBC W/AUTO [id number] 00:00:00* Test Item Value Reference Range Interpretation [...] code = 1015) 230 K/UL COMPREHENSIVE METABOLIC [id number] 00:00:00* Test Item Value Reference Range Interpretation Comme nts GLUCOSE (test code = 2217) 84 MG/DL BUN (test code = 2208) 12 MG/DL CREATININE (test code = 2214) 1.02 MG/DL eGFR AMER. (test cod e = 76866) 72 ML/MIN/1.73 eGFR NON- AMER. (test code = 38869) 62 ML/MIN/1.73 CALC BUN/CREAT (test code = [...] (test code = 2219) 9 U/L URIC [id number] 00:00:00* Test Item Value Reference Range Interpretation Comme nts URIC ACID (test code = 2233) 7.8 MG/DL CBC W/AUTO [id number] 00:00:00* Test Item Value Reference Range Interpretation [...] code = 1015) 230 K/UL COMPREHENSIVE METABOLIC [id number] 00:00:00* Test Item Value Reference Range Interpretation Comme nts GLUCOSE (test code = 2217) 84 MG/DL BUN (test code = 2208) 12 MG/DL CREATININE (test code = 2214) 1.02 MG/DL eGFR AMER. (test cod e = 45292) 72 ML/MIN/1.73 eGFR NON- AMER. (test code = 28918) 62 ML/MIN/1.73 CALC BUN/CREAT (test code = [...] (test code = 2219) 9 U/L URIC [id number] 00:00:00* Test Item Value Reference Range Interpretation Comme nts URIC ACID (test code = 2233) 7.8 MG/DL CBC W/AUTO [id number] 00:00:00* Test Item Value Reference Range Interpretation [...] code = 1015) 230 K/UL COMPREHENSIVE METABOLIC [id number] 00:00:00* Test Item Value Reference Range Interpretation Comme nts GLUCOSE (test code = 2217) 84 MG/DL BUN (test code = 2208) 12 MG/DL CREATININE (test code = 2214) 1.02 MG/DL eGFR AMER. (test cod e = 20464) 72 ML/MIN/1.73 eGFR NON- AMER. (test code = 15889) 62 ML/MIN/1.73 CALC BUN/CREAT (test code = [...] code = 2219) 9 U/L CBC W/AUTO [id number] 00:00:00* Test Item Value Reference Range Interpretation [...] = 1015) 230 K/UL Delfino OrtaCOMPREHENSIVE METABOLIC [id number] 00:00:00* Test Item Value Reference Range Interpretation Comme nts GLUCOSE (test code = 2217) 84 MG/DL BUN (test code = 2208) 12 MG/DL CREATININE (test code = 2214) 1.02 MG/DL eGFR AMER. (test cod e = 16762) 72 ML/MIN/1.73 eGFR NON- AMER. (test code = 90100) 62 ML/MIN/1.73 CALC BUN/CREAT (test code = [...] = 2219) 9 U/L Delfino Schumacher YouURIC [id number] 00:00:00* Test Item Value Reference Range Interpretation Comme nts URIC ACID (test code = 2233) 7.8 MG/DL Delfino Schumacher YouCBC W/AUTO [id number] 00:00:00* Test Item Value Reference Range Interpretation [...] 1015) 230 K/UL Delfino F YouCOMPREHENSIVE METABOLIC [id number] 00:00:00* Test Item Value Reference Range Interpretation Comme nts GLUCOSE (test code = 2217) 84 MG/DL BUN (test code = 2208) 12 MG/DL CREATININE (test code = 2214) 1.02 MG/DL eGFR AMER. (test cod e = 46704) 72 ML/MIN/1.73 eGFR NON- AMER. (test code = 03349) 62 ML/MIN/1.73 CALC BUN/CREAT (test code = [...] = 2219) 9 U/L Delfino Schumacher [facility] [id number] 00:00:00* Test Item Value Reference Range Interpretation Comme nts URIC ACID (test code = 2233) 7.8 MG/DL Delfino OrtaCBC W/AUTO [id number] 00:00:00* Test Item Value Reference Range Interpretation [...] code = 1015) 230 K/UL Delfino Schumacher AustinURIC [id number] 00:00:00* Test Item Value Reference Range Interpretation Comme nts URIC ACID (test code = 2233) 7.8 MG/DL Delfino OrtaCBC W/AUTO [id number] 00:00:00* Test Item Value Reference Range Interpretation [...] = 1015) 230 K/UL Delfino OrtaCOMPREHENSIVE METABOLIC [id number] 00:00:00* Test Item Value Reference Range Interpretation Comme nts GLUCOSE (test code = 2217) 84 MG/DL BUN (test code = 2208) 12 MG/DL CREATININE (test code = 2214) 1.02 MG/DL eGFR AMER. (test cod e = 81409) 72 ML/MIN/1.73 eGFR NON- AMER. (test code = 70536) 62 ML/MIN/1.73 CALC BUN/CREAT (test code = [...] code = 2219) 9 U/L Delfino OrtaURIC [id number] 00:00:00* Test Item Value Reference Range Interpretation Comme nts URIC ACID (test code = 2233) 7.8 MG/DL Delfino OrtaCBC W/AUTO [id number] 00:00:00* Test Item Value Reference Range Interpretation [...] = 1015) 230 K/UL Delfino OrtaCOMPREHENSIVE METABOLIC [id number] 00:00:00* Test Item Value Reference Range Interpretation Comme nts GLUCOSE (test code = 2217) 84 MG/DL BUN (test code = 2208) 12 MG/DL CREATININE (test code = 2214) 1.02 MG/DL eGFR AMER. (test cod e = 45050) 72 ML/MIN/1.73 eGFR NON- AMER. (test code = 64556) 62 ML/MIN/1.73 CALC BUN/CREAT (test code = [...] code = 2219) 9 U/L Delfino OrtaURIC [id number] 00:00:00* Test Item Value Reference Range Interpretation Comme nts URIC ACID (test code = 2233) 7.8 MG/DL Delfino OrtaCBC W/AUTO [id number] 00:00:00* Test Item Value Reference Range Interpretation [...] = 1015) 230 K/UL Delfino OrtaCOMPREHENSIVE METABOLIC [id number] 00:00:00* Test Item Value Reference Range Interpretation Comme nts GLUCOSE (test code = 2217) 84 MG/DL BUN (test code = 2208) 12 MG/DL CREATININE (test code = 2214) 1.02 MG/DL eGFR AMER. (test cod e = 45098) 72 ML/MIN/1.73 eGFR NON- AMER. (test code = 52400) 62 ML/MIN/1.73 CALC BUN/CREAT (test code = [...] = 2219) 9 U/L Delfino Schumacher YouURIC [id number] 00:00:00* Test Item Value Reference Range Interpretation Comme nts URIC ACID (test code = 2233) 7.8 MG/DL Delfino Schumacher YouCOMPREHENSIVE METABOLIC [id number] 00:00:00* Test Item Value Reference Range Interpretation Comme nts GLUCOSE (test code = 2217) 84 MG/DL BUN (test code = 2208) 12 MG/DL CREATININE (test code = 2214) 1.02 MG/DL eGFR AMER. (test cod e = 69029) 72 ML/MIN/1.73 eGFR NON- AMER. (test code = 29717) 62 ML/MIN/1.73 CALC BUN/CREAT (test code = [...] 2219) 9 U/L Delfino Schumacher YouCBC W/AUTO [id number] 00:00:00* Test Item Value Reference Range Interpretation [...] = 1015) 230 K/UL Delfino OrtaCOMPREHENSIVE METABOLIC [id number] 00:00:00* Test Item Value Reference Range Interpretation Comme nts GLUCOSE (test code = 2217) 84 MG/DL BUN (test code = 2208) 12 MG/DL CREATININE (test code = 2214) 1.02 MG/DL eGFR AMER. (test cod e = 00020) 72 ML/MIN/1.73 eGFR NON- AMER. (test code = 80174) 62 ML/MIN/1.73 CALC BUN/CREAT (test code = [...] code = 2219) 9 U/L Delfino OrtaURIC [id number] 00:00:00* Test Item Value Reference Range Interpretation Comme nts URIC ACID (test code = 2233) 7.8 MG/DL Delfino OrtaCBC W/AUTO [id number] 00:00:00* Test Item Value Reference Range Interpretation [...] = 1015) 230 K/UL Delfino OrtaCOMPREHENSIVE METABOLIC [id number] 00:00:00* Test Item Value Reference Range Interpretation Comme nts GLUCOSE (test code = 2217) 84 MG/DL BUN (test code = 2208) 12 MG/DL CREATININE (test code = 2214) 1.02 MG/DL eGFR AMER. (test cod e = 96728) 72 ML/MIN/1.73 eGFR NON- AMER. (test code = 16142) 62 ML/MIN/1.73 CALC BUN/CREAT (test code = [...] code = 2219) 9 U/L Delfino OrtaURIC [id number] 00:00:00* Test Item Value Reference Range Interpretation Comme nts URIC ACID (test code = 2233) 7.8 MG/DL Delfino OrtaCBC W/AUTO [id number] 00:00:00* Test Item Value Reference Range Interpretation [...] = 1015) 230 K/UL Delfino OrtaCOMPREHENSIVE METABOLIC [id number] 00:00:00* Test Item Value Reference Range Interpretation Comme nts GLUCOSE (test code = 2217) 84 MG/DL BUN (test code = 2208) 12 MG/DL CREATININE (test code = 2214) 1.02 MG/DL eGFR AMER. (test cod e = 83998) 72 ML/MIN/1.73 eGFR NON- AMER. (test code = 82473) 62 ML/MIN/1.73 CALC BUN/CREAT (test code = [...] code = 2219) 9 U/L Delfino OrtaURIC [id number] 00:00:00* Test Item Value Reference Range Interpretation Comme nts URIC ACID (test code = 2233) 7.8 MG/DL Delfino OrtaCBC W/AUTO [id number] 00:00:00* Test Item Value Reference Range Interpretation [...] = 1015) 230 K/UL Delfino OrtaCOMPREHENSIVE METABOLIC [id number] 00:00:00* Test Item Value Reference Range Interpretation Comme nts GLUCOSE (test code = 2217) 84 MG/DL BUN (test code = 2208) 12 MG/DL CREATININE (test code = 2214) 1.02 MG/DL eGFR AMER. (test cod e = 29931) 72 ML/MIN/1.73 eGFR NON- AMER. (test code = 42502) 62 ML/MIN/1.73 CALC BUN/CREAT (test code = [...] code = 2219) 9 U/L Delfino OrtaURIC [id number] 00:00:00* Test Item Value Reference Range Interpretation Comme nts URIC ACID (test code = 2233) 7.8 MG/DL Delfino Schumacher YouCBC W/AUTO [id number] 00:00:00* Test Item Value Reference Range Interpretation [...] 1015) 230 K/UL Delfino Schumacher YouCOMPREHENSIVE METABOLIC [id number] 00:00:00* Test Item Value Reference Range Interpretation Comme nts GLUCOSE (test code = 2217) 84 MG/DL BUN (test code = 2208) 12 MG/DL CREATININE (test code = 2214) 1.02 MG/DL eGFR AMER. (test cod e = 82569) 72 ML/MIN/1.73 eGFR NON- AMER. (test code = 55758) 62 ML/MIN/1.73 CALC BUN/CREAT (test code = [...] = 2219) 9 U/L Delfino F YouURIC [id number] 00:00:00* Test Item Value Reference Range Interpretation Comme nts URIC ACID (test code = 2233) 7.8 MG/DL Delfino Schumacher YouCBC W/AUTO [id number] 00:00:00* Test Item Value Reference Range Interpretation [...] 1015) 230 K/UL Delfino F YouCOMPREHENSIVE METABOLIC [id number] 00:00:00* Test Item Value Reference Range Interpretation Comme nts GLUCOSE (test code = 2217) 84 MG/DL BUN (test code = 2208) 12 MG/DL CREATININE (test code = 2214) 1.02 MG/DL eGFR AMER. (test cod e = 31902) 72 ML/MIN/1.73 eGFR NON- AMER. (test code = 98962) 62 ML/MIN/1.73 CALC BUN/CREAT (test code = [...] code = 2219) 9 U/L Delfino OrtaURIC [id number] 00:00:00* Test Item Value Reference Range Interpretation Comme nts URIC ACID (test code = 2233) 7.8 MG/DL Delfino OrtaC W/AUTO [id number] 00:00:00* Test Item Value Reference Range Interpretation [...] = 1015) 230 K/UL Delfino OrtaCOMPREHENSIVE METABOLIC [id number] 00:00:00* Test Item Value Reference Range Interpretation Comme nts GLUCOSE (test code = 2217) 84 MG/DL BUN (test code = 2208) 12 MG/DL CREATININE (test code = 2214) 1.02 MG/DL eGFR AMER. (test cod e = 54694) 72 ML/MIN/1.73 eGFR NON- AMER. (test code = 27863) 62 ML/MIN/1.73 CALC BUN/CREAT (test code = [...] code = 2219) 9 U/L Delfino OrtaURIC [id number] 00:00:00* Test Item Value Reference Range Interpretation Comme carlito URIC ACID (test code = 2233) 7.8 MG/DL Delfino OrtaCBC W/AUTO [id number] 00:00:00* Test Item Value Reference Range Interpretation [...] = 1015) 230 K/UL Delfino OrtaCOMPREHENSIVE METABOLIC [id number] 00:00:00* Test Item Value Reference Range Interpretation Comme nts GLUCOSE (test code = 2217) 84 MG/DL BUN (test code = 2208) 12 MG/DL CREATININE (test code = 2214) 1.02 MG/DL eGFR AMER. (test cod e = 44163) 72 ML/MIN/1.73 eGFR NON- AMER. (test code = 70952) 62 ML/MIN/1.73 CALC BUN/CREAT (test code = [...] code = 2219) 9 U/L Delfino OrtaURIC [id number] 00:00:00* Test Item Value Reference Range Interpretation Comme nts URIC ACID (test code = 2233) 7.8 MG/DL Delfino OrtaCBC W/AUTO [id number] 00:00:00* Test Item Value Reference Range Interpretation [...] = 1015) 230 K/UL Delfino OrtaCOMPREHENSIVE METABOLIC [id number] 00:00:00* Test Item Value Reference Range Interpretation Comme nts GLUCOSE (test code = 2217) 84 MG/DL BUN (test code = 2208) 12 MG/DL CREATININE (test code = 2214) 1.02 MG/DL eGFR AMER. (test cod e = 28279) 72 ML/MIN/1.73 eGFR NON- AMER. (test code = 92339) 62 ML/MIN/1.73 CALC BUN/CREAT (test code = [...] code = 2219) 9 U/L Delfino OrtaURIC [id number] 00:00:00* Test Item Value Reference Range Interpretation Comme nts URIC ACID (test code = 2233) 7.8 MG/DL Delfino OrtaCBC W/AUTO [id number] 00:00:00* Test Item Value Reference Range Interpretation [...] = 1015) 230 K/UL Delfino OrtaCOMPREHENSIVE METABOLIC [id number] 00:00:00* Test Item Value Reference Range Interpretation Comme nts GLUCOSE (test code = 2217) 84 MG/DL BUN (test code = 2208) 12 MG/DL CREATININE (test code = 2214) 1.02 MG/DL eGFR AMER. (test cod e = 55082) 72 ML/MIN/1.73 eGFR NON- AMER. (test code = 40486) 62 ML/MIN/1.73 CALC BUN/CREAT (test code = [...] code = 2219) 9 U/L Delfino OrtaURIC [id number] 00:00:00* Test Item Value Reference Range Interpretation Comme nts URIC ACID (test code = 2233) 7.8 MG/DL Delfino Shcumacher YouCBC W/AUTO [id number] 00:00:00* Test Item Value Reference Range Interpretation [...] 1015) 230 K/UL Delfino Schumacher YouCOMPREHENSIVE METABOLIC [id number] 00:00:00* Test Item Value Reference Range Interpretation Comme nts GLUCOSE (test code = 2217) 84 MG/DL BUN (test code = 2208) 12 MG/DL CREATININE (test code = 2214) 1.02 MG/DL eGFR AMER. (test cod e = 23278) 72 ML/MIN/1.73 eGFR NON- AMER. (test code = 53121) 62 ML/MIN/1.73 CALC BUN/CREAT (test code = [...] code = 2219) 9 U/L Delfino OrtaURIC [id number] 00:00:00* Test Item Value Reference Range Interpretation Comme nts URIC ACID (test code = 2233) 7.8 MG/DL Delfino OrtaCBC W/AUTO [id number] 00:00:00* Test Item Value Reference Range Interpretation [...] = 1015) 230 K/UL Delfino OrtaCOMPREHENSIVE METABOLIC [id number] 00:00:00* Test Item Value Reference Range Interpretation Comme nts GLUCOSE (test code = 2217) 84 MG/DL BUN (test code = 2208) 12 MG/DL CREATININE (test code = 2214) 1.02 MG/DL eGFR AMER. (test cod e = 81990) 72 ML/MIN/1.73 eGFR NON- AMER. (test code = 54887) 62 ML/MIN/1.73 CALC BUN/CREAT (test code = [...] = 2219) 9 U/L Delfino Schumacher [place]URIC [id number] 00:00:00* Test Item Value Reference Range Interpretation Comme nts URIC ACID (test code = 2233) 7.8 MG/DL Delfino OrtaCBC W/AUTO [id number] 00:00:00* Test Item Value Reference Range Interpretation [...] = 1015) 230 K/UL Delfino OrtaCOMPREHENSIVE METABOLIC [id number] 00:00:00* Test Item Value Reference Range Interpretation Comme nts GLUCOSE (test code = 2217) 84 MG/DL BUN (test code = 2208) 12 MG/DL CREATININE (test code = 2214) 1.02 MG/DL eGFR AMER. (test cod e = 89264) 72 ML/MIN/1.73 eGFR NON- AMER. (test code = 21631) 62 ML/MIN/1.73 CALC BUN/CREAT (test code = [...] code = 2219) 9 U/L Delfino OrtaURIC [id number] 00:00:00* Test Item Value Reference Range Interpretation Comme nts URIC ACID (test code = 2233) 7.8 MG/DL Delfino Schumacher YouCBC W/AUTO [id number] 00:00:00* Test Item Value Reference Range Interpretation [...] 1015) 230 K/UL Delfino Schumacher YouCOMPREHENSIVE METABOLIC [id number] 00:00:00* Test Item Value Reference Range Interpretation Comme nts GLUCOSE (test code = 2217) 84 MG/DL BUN (test code = 2208) 12 MG/DL CREATININE (test code = 2214) 1.02 MG/DL eGFR AMER. (test cod e = 34266) 72 ML/MIN/1.73 eGFR NON- AMER. (test code = 91544) 62 ML/MIN/1.73 CALC BUN/CREAT (test code = [...] code = 2219) 9 U/L Delfino OrtaURIC [id number] 00:00:00* Test Item Value Reference Range Interpretation Comme nts URIC ACID (test code = 2233) 7.8 MG/DL Delfino OrtaCBC W/AUTO [id number] 00:00:00* Test Item Value Reference Range Interpretation [...] = 1015) 230 K/UL Delfino OrtaCOMPREHENSIVE METABOLIC [id number] 00:00:00* Test Item Value Reference Range Interpretation Comme nts GLUCOSE (test code = 2217) 84 MG/DL BUN (test code = 2208) 12 MG/DL CREATININE (test code = 2214) 1.02 MG/DL eGFR AMER. (test cod e = 52720) 72 ML/MIN/1.73 eGFR NON- AMER. (test code = 41481) 62 ML/MIN/1.73 CALC BUN/CREAT (test code = [...] code = 2219) 9 U/L Delfino Schumacher KinmundyURIC [id number] 00:00:00* Test Item Value Reference Range Interpretation Comme nts URIC ACID (test code = 2233) 7.8 MG/DL [facility] [id number] 00:00:00* Test Item Value Reference Range Interpretation [...] = 1015) 230 K/UL Delfino OrtaCOMPREHENSIVE METABOLIC [id number] 00:00:00* Test Item Value Reference Range Interpretation Comme nts GLUCOSE (test code = 2217) 84 MG/DL BUN (test code = 2208) 12 MG/DL CREATININE (test code = 2214) 1.02 MG/DL eGFR AMER. (test cod e = 19082) 72 ML/MIN/1.73 eGFR NON- AMER. (test code = 81781) 62 ML/MIN/1.73 CALC BUN/CREAT (test code = [...] code = 2219) 9 U/L Delfino OrtaURIC [id number] 00:00:00* Test Item Value Reference Range Interpretation Comme nts URIC ACID (test code = 2233) 7.8 MG/DL Delfino OrtaCBC W/AUTO [id number] 00:00:00* Test Item Value Reference Range Interpretation [...] = 1015) 230 K/UL Delfino OrtaCOMPREHENSIVE METABOLIC [id number] 00:00:00* Test Item Value Reference Range Interpretation Comme nts GLUCOSE (test code = 2217) 84 MG/DL BUN (test code = 2208) 12 MG/DL CREATININE (test code = 2214) 1.02 MG/DL eGFR AMER. (test cod e = 58749) 72 ML/MIN/1.73 eGFR NON- AMER. (test code = 16698) 62 ML/MIN/1.73 CALC BUN/CREAT (test code = [...] code = 2219) 9 U/L Delfino OrtaURIC [id number] 00:00:00* Test Item Value Reference Range Interpretation Comme nts URIC ACID (test code = 2233) 7.8 MG/DL Delfino OrtaCBC W/AUTO [id number] 00:00:00* Test Item Value Reference Range Interpretation [...] = 1015) 230 K/UL Delfino OrtaCOMPREHENSIVE METABOLIC [id number] 00:00:00* Test Item Value Reference Range Interpretation Comme nts GLUCOSE (test code = 2217) 84 MG/DL BUN (test code = 2208) 12 MG/DL CREATININE (test code = 2214) 1.02 MG/DL eGFR AMER. (test cod e = 00614) 72 ML/MIN/1.73 eGFR NON- AMER. (test code = 33113) 62 ML/MIN/1.73 CALC BUN/CREAT (test code = [...] code = 2219) 9 U/L Delfino OrtaURIC [id number] 00:00:00* Test Item Value Reference Range Interpretation Comme nts URIC ACID (test code = 2233) 7.8 MG/DL Delfino OrtaCBC W/AUTO [id number] 00:00:00* Test Item Value Reference Range Interpretation [...] = 1015) 230 K/UL Delfino OrtaCOMPREHENSIVE METABOLIC [id number] 00:00:00* Test Item Value Reference Range Interpretation Comme nts GLUCOSE (test code = 2217) 84 MG/DL BUN (test code = 2208) 12 MG/DL CREATININE (test code = 2214) 1.02 MG/DL eGFR AMER. (test cod e = 40356) 72 ML/MIN/1.73 eGFR NON- AMER. (test code = 20270) 62 ML/MIN/1.73 CALC BUN/CREAT (test code = [...] code = 2219) 9 U/L Delfino OrtaURIC [id number] 00:00:00* Test Item Value Reference Range Interpretation Comme nts URIC ACID (test code = 2233) 7.8 MG/DL Delfino OrtaCBC W/AUTO [id number] 00:00:00* Test Item Value Reference Range Interpretation [...] 1015) 230 K/UL Delfino Schumacher YouCOMPREHENSIVE METABOLIC [id number] 00:00:00* Test Item Value Reference Range Interpretation Comme nts GLUCOSE (test code = 2217) 84 MG/DL BUN (test code = 2208) 12 MG/DL CREATININE (test code = 2214) 1.02 MG/DL eGFR AMER. (test cod e = 82893) 72 ML/MIN/1.73 eGFR NON- AMER. (test code = 91010) 62 ML/MIN/1.73 CALC BUN/CREAT (test code = [...] code = 2219) 9 U/L Delfino OrtaURIC [id number] 00:00:00* Test Item Value Reference Range Interpretation Comme nts URIC ACID (test code = 2233) 7.8 MG/DL Delfino OrtaCBC W/AUTO [id number] 00:00:00* Test Item Value Reference Range Interpretation [...] = 1015) 230 K/UL Delfino OrtaCOMPREHENSIVE METABOLIC [id number] 00:00:00* Test Item Value Reference Range Interpretation Comme nts GLUCOSE (test code = 2217) 84 MG/DL BUN (test code = 2208) 12 MG/DL CREATININE (test code = 2214) 1.02 MG/DL eGFR AMER. (test cod e = 11557) 72 ML/MIN/1.73 eGFR NON- AMER. (test code = 71395) 62 ML/MIN/1.73 CALC BUN/CREAT (test code = [...] code = 2219) 9 U/L Delfino OrtaURIC [id number] 00:00:00* Test Item Value Reference Range Interpretation Comme nts URIC ACID (test code = 2233) 7.8 MG/DL Delfino OrtaCBC W/AUTO [id number] 00:00:00* Test Item Value Reference Range Interpretation [...] = 1015) 230 K/UL Delfino OrtaCOMPREHENSIVE METABOLIC [id number] 00:00:00* Test Item Value Reference Range Interpretation Comme nts GLUCOSE (test code = 2217) 84 MG/DL BUN (test code = 2208) 12 MG/DL CREATININE (test code = 2214) 1.02 MG/DL eGFR AMER. (test cod e = 95316) 72 ML/MIN/1.73 eGFR NON- AMER. (test code = 09741) 62 ML/MIN/1.73 CALC BUN/CREAT (test code = [...] code = 2219) 9 U/L Delfino OrtaURIC [id number] 00:00:00* Test Item Value Reference Range Interpretation Comme nts URIC ACID (test code = 2233) 7.8 MG/DL Delfino OrtaCBC W/AUTO [id number] 00:00:00* Test Item Value Reference Range Interpretation [...] = 1015) 230 K/UL Delfino OrtaCOMPREHENSIVE METABOLIC [id number] 00:00:00* Test Item Value Reference Range Interpretation Comme nts GLUCOSE (test code = 2217) 84 MG/DL BUN (test code = 2208) 12 MG/DL CREATININE (test code = 2214) 1.02 MG/DL eGFR AMER. (test cod e = 80955) 72 ML/MIN/1.73 eGFR NON- AMER. (test code = 54835) 62 ML/MIN/1.73 CALC BUN/CREAT (test code = [...] code = 2219) 9 U/L Delfino OrtaURIC [id number] 00:00:00* Test Item Value Reference Range Interpretation Comme nts URIC ACID (test code = 2233) 7.8 MG/DL Delfino OrtaCBC W/AUTO [id number] 00:00:00* Test Item Value Reference Range Interpretation [...] = 1015) 230 K/UL Delfino OrtaCOMPREHENSIVE METABOLIC [id number] 00:00:00* Test Item Value Reference Range Interpretation Comme nts GLUCOSE (test code = 2217) 84 MG/DL BUN (test code = 2208) 12 MG/DL CREATININE (test code = 2214) 1.02 MG/DL eGFR AMER. (test cod e = 52281) 72 ML/MIN/1.73 eGFR NON- AMER. (test code = 71604) 62 ML/MIN/1.73 CALC BUN/CREAT (test code = [...] = 2219) 9 U/L Delfino Schumacher YouURIC [id number] 00:00:00* Test Item Value Reference Range Interpretation Comme nts URIC ACID (test code = 2233) 7.8 MG/DL Delfino OrtaCBC W/AUTO [id number] 00:00:00* Test Item Value Reference Range Interpretation [...] = 1015) 230 K/UL Delfino OrtaCOMPREHENSIVE METABOLIC [id number] 00:00:00* Test Item Value Reference Range Interpretation Comme nts GLUCOSE (test code = 2217) 84 MG/DL BUN (test code = 2208) 12 MG/DL CREATININE (test code = 2214) 1.02 MG/DL eGFR AMER. (test cod e = 81045) 72 ML/MIN/1.73 eGFR NON- AMER. (test code = 59423) 62 ML/MIN/1.73 CALC BUN/CREAT (test code = [...] code = 2219) 9 U/L Delfino OrtaURIC [id number] 00:00:00* Test Item Value Reference Range Interpretation Comme nts URIC ACID (test code = 2233) 7.8 MG/DL Delfino OrtaCBC W/AUTO [id number] 00:00:00* Test Item Value Reference Range Interpretation [...] = 1015) 230 K/UL Delfino OrtaCOMPREHENSIVE METABOLIC [id number] 00:00:00* Test Item Value Reference Range Interpretation Comme nts GLUCOSE (test code = 2217) 84 MG/DL BUN (test code = 2208) 12 MG/DL CREATININE (test code = 2214) 1.02 MG/DL eGFR AMER. (test cod e = 64755) 72 ML/MIN/1.73 eGFR NON- AMER. (test code = 44395) 62 ML/MIN/1.73 CALC BUN/CREAT (test code = [...] code = 2219) 9 U/L Delfino OrtaURIC [id number] 00:00:00* Test Item Value Reference Range Interpretation Comme nts URIC ACID (test code = 2233) 7.8 MG/DL Delfino Schumacher YouCBC W/AUTO [id number] 00:00:00* Test Item Value Reference Range Interpretation [...] 1015) 230 K/UL Delfino Endy YouCOMPREHENSIVE METABOLIC [id number] 00:00:00* Test Item Value Reference Range Interpretation Comme nts GLUCOSE (test code = 2217) 84 MG/DL BUN (test code = 2208) 12 MG/DL CREATININE (test code = 2214) 1.02 MG/DL eGFR AMER. (test cod e = 11321) 72 ML/MIN/1.73 eGFR NON- AMER. (test code = 01628) 62 ML/MIN/1.73 CALC BUN/CREAT (test code = [...] = 2219) 9 U/L Delfino Endy YouURIC [id number] 00:00:00* Test Item Value Reference Range Interpretation Comme nts URIC ACID (test code = 2233) 7.8 MG/DL Delfino OrtaCBC W/AUTO [id number] 00:00:00* Test Item Value Reference Range Interpretation [...] = 1015) 230 K/UL Delfino OrtaCOMPREHENSIVE METABOLIC [id number] 00:00:00* Test Item Value Reference Range Interpretation Comme nts GLUCOSE (test code = 2217) 84 MG/DL BUN (test code = 2208) 12 MG/DL CREATININE (test code = 2214) 1.02 MG/DL eGFR AMER. (test cod e = 21225) 72 ML/MIN/1.73 eGFR NON- AMER. (test code = 84809) 62 ML/MIN/1.73 CALC BUN/CREAT (test code = [...] code = 2219) 9 U/L Delfino OrtaURIC [id number] 00:00:00* Test Item Value Reference Range Interpretation Comme nts URIC ACID (test code = 2233) 7.8 MG/DL Delfino Schumacher AustinURIC [id number] 00:00:00* Test Item Value Reference Range Interpretation Comme nts URIC ACID (test code = 2233) 7.8 MG/DL CBC W/AUTO [id number] 00:00:00* Test Item Value Reference Range Interpretation [...] code = 1015) 230 K/UL COMPREHENSIVE METABOLIC [id number] 00:00:00* Test Item Value Reference Range Interpretation Comme nts GLUCOSE (test code = 2217) 93 MG/DL BUN (test code = 2208) 20 MG/DL CREATININE (test code = 2214) 1.18 MG/DL eGFR AMER. (test cod e = 21787) 61 ML/MIN/1.73 eGFR NON- AMER. (test code = 42239) 52 ML/MIN/1.73 CALC BUN/CREAT (test code = [...] code = 2219) 15 U/L CBC W/AUTO [id number] 00:00:00* Test Item Value Reference Range Interpretation [...] (test code = 1015) 317 K/UL LIPID [id number] 00:00:00* Test Item Value Reference Range Interpretation Comme nts CHOLESTEROL (test code = 2210) 215 MG/DL TRIGLYCERIDES (test code = 2232) 61 MG/DL HDL CHOLESTEROL (test code = 2220) 93 MG/DL CALC LDL CHOL (test code = 2237) 110 MG/DL RISK RATIO LDL/HDL (test cod e = 2238) 1.18 RATIO COMPREHENSIVE METABOLIC [id number] 00:00:00* Test Item Value Reference Range Interpretation Comme nts GLUCOSE (test code = 2217) 93 MG/DL BUN (test code = 2208) 20 MG/DL CREATININE (test code = 2214) 1.18 MG/DL eGFR AMER. (test cod e = 50979) 61 ML/MIN/1.73 eGFR NON- AMER. (test code = 59258) 52 ML/MIN/1.73 CALC BUN/CREAT (test code = [...] code = 2219) 15 U/L CBC W/AUTO [id number] 00:00:00* Test Item Value Reference Range Interpretation [...] (test code = 1015) 317 K/UL LIPID [id number] 00:00:00* Test Item Value Reference Range Interpretation Comme nts CHOLESTEROL (test code = 2210) 215 MG/DL TRIGLYCERIDES (test code = 2232) 61 MG/DL HDL CHOLESTEROL (test code = 2220) 93 MG/DL CALC LDL CHOL (test code = 2237) 110 MG/DL RISK RATIO LDL/HDL (test cod e = 2238) 1.18 RATIO COMPREHENSIVE METABOLIC [id number] 00:00:00* Test Item Value Reference Range Interpretation Comme nts GLUCOSE (test code = 2217) 93 MG/DL BUN (test code = 2208) 20 MG/DL CREATININE (test code = 2214) 1.18 MG/DL eGFR AMER. (test cod e = 37700) 61 ML/MIN/1.73 eGFR NON- AMER. (test code = 47009) 52 ML/MIN/1.73 CALC BUN/CREAT (test code = [...] code = 2219) 15 U/L CBC W/AUTO [id number] 00:00:00* Test Item Value Reference Range Interpretation [...] (test code = 1015) 317 K/UL LIPID [id number] 00:00:00* Test Item Value Reference Range Interpretation Comme nts CHOLESTEROL (test code = 2210) 215 MG/DL TRIGLYCERIDES (test code = 2232) 61 MG/DL HDL CHOLESTEROL (test code = 2220) 93 MG/DL CALC LDL CHOL (test code = 2237) 110 MG/DL RISK RATIO LDL/HDL (test cod e = 2238) 1.18 RATIO COMPREHENSIVE METABOLIC [id number] 00:00:00* Test Item Value Reference Range Interpretation Comme nts GLUCOSE (test code = 2217) 93 MG/DL BUN (test code = 2208) 20 MG/DL CREATININE (test code = 2214) 1.18 MG/DL eGFR AMER. (test cod e = 16232) 61 ML/MIN/1.73 eGFR NON- AMER. (test code = 36237) 52 ML/MIN/1.73 CALC BUN/CREAT (test code = [...] (test code = 2219) 15 U/L LIPID [id number] 00:00:00* Test Item Value Reference Range Interpretation Comme nts CHOLESTEROL (test code = 2210) 215 MG/DL TRIGLYCERIDES (test code = 2232) 61 MG/DL HDL CHOLESTEROL (test code = 2220) 93 MG/DL CALC LDL CHOL (test code = 2237) 110 MG/DL RISK RATIO LDL/HDL (test cod e = 2238) 1.18 RATIO Delfinosurinder OrtaCOMPREHENSIVE METABOLIC [id number] 00:00:00* Test Item Value Reference Range Interpretation Comme nts GLUCOSE (test code = 2217) 93 MG/DL BUN (test code = 2208) 20 MG/DL CREATININE (test code = 2214) 1.18 MG/DL eGFR AMER. (test cod e = 75697) 61 ML/MIN/1.73 eGFR NON- AMER. (test code = 94786) 52 ML/MIN/1.73 CALC BUN/CREAT (test code = [...] = 2219) 15 U/L Delfino OrtaCBC W/AUTO [id number] 00:00:00* Test Item Value Reference Range Interpretation [...] code = 1015) 317 K/UL Delfino OrtaLIPID [id number] 00:00:00* Test Item Value Reference Range Interpretation Comme nts CHOLESTEROL (test code = 2210) 215 MG/DL TRIGLYCERIDES (test code = 2232) 61 MG/DL HDL CHOLESTEROL (test code = 2220) 93 MG/DL CALC LDL CHOL (test code = 2237) 110 MG/DL RISK RATIO LDL/HDL (test cod e = 2238) 1.18 RATIO Delfino OrtaCOMPREHENSIVE METABOLIC [id number] 00:00:00* Test Item Value Reference Range Interpretation Comme nts GLUCOSE (test code = 2217) 93 MG/DL BUN (test code = 2208) 20 MG/DL CREATININE (test code = 2214) 1.18 MG/DL eGFR AMER. (test cod e = 69654) 61 ML/MIN/1.73 eGFR NON- AMER. (test code = 58829) 52 ML/MIN/1.73 CALC BUN/CREAT (test code = [...] 2219) 15 U/L Delfino Schumacher YouCBC W/AUTO [id number] 00:00:00* Test Item Value Reference Range Interpretation [...] = 1015) 317 K/UL Delfino OrtaCBC W/AUTO [id number] 00:00:00* Test Item Value Reference Range Interpretation [...] code = 1015) 317 K/UL Delfino OrtaLIPID [id number] 00:00:00* Test Item Value Reference Range Interpretation Comme nts CHOLESTEROL (test code = 2210) 215 MG/DL TRIGLYCERIDES (test code = 2232) 61 MG/DL HDL CHOLESTEROL (test code = 2220) 93 MG/DL CALC LDL CHOL (test code = 2237) 110 MG/DL RISK RATIO LDL/HDL (test cod e = 2238) 1.18 RATIO Delfino OrtaCOMPREHENSIVE METABOLIC [id number] 00:00:00* Test Item Value Reference Range Interpretation Comme nts GLUCOSE (test code = 2217) 93 MG/DL BUN (test code = 2208) 20 MG/DL CREATININE (test code = 2214) 1.18 MG/DL eGFR AMER. (test cod e = 51512) 61 ML/MIN/1.73 eGFR NON- AMER. (test code = 59444) 52 ML/MIN/1.73 CALC BUN/CREAT (test code = [...] = 2219) 15 U/L Delfino OrtaCBC W/AUTO [id number] 00:00:00* Test Item Value Reference Range Interpretation [...] code = 1015) 317 K/UL Delfino OrtaLIPID [id number] 00:00:00* Test Item Value Reference Range Interpretation Comme nts CHOLESTEROL (test code = 2210) 215 MG/DL TRIGLYCERIDES (test code = 2232) 61 MG/DL HDL CHOLESTEROL (test code = 2220) 93 MG/DL CALC LDL CHOL (test code = 2237) 110 MG/DL RISK RATIO LDL/HDL (test cod e = 2238) 1.18 RATIO Delfino Schumacher AustinLIPID [id number] 00:00:00* Test Item Value Reference Range Interpretation Comme nts CHOLESTEROL (test code = 2210) 215 MG/DL TRIGLYCERIDES (test code = 2232) 61 MG/DL HDL CHOLESTEROL (test code = 2220) 93 MG/DL CALC LDL CHOL (test code = 2237) 110 MG/DL RISK RATIO LDL/HDL (test cod e = 2238) 1.18 RATIO Delfino OrtaCOMPREHENSIVE METABOLIC [id number] 00:00:00* Test Item Value Reference Range Interpretation Comme nts GLUCOSE (test code = 2217) 93 MG/DL BUN (test code = 2208) 20 MG/DL CREATININE (test code = 2214) 1.18 MG/DL eGFR AMER. (test cod e = 61122) 61 ML/MIN/1.73 eGFR NON- AMER. (test code = 88912) 52 ML/MIN/1.73 CALC BUN/CREAT (test code = [...] 2219) 15 U/L Delfino Schumacher YouCBC W/AUTO [id number] 00:00:00* Test Item Value Reference Range Interpretation [...] code = 1015) 317 K/UL Delfino OrtaLIPID [id number] 00:00:00* Test Item Value Reference Range Interpretation Comme nts CHOLESTEROL (test code = 2210) 215 MG/DL TRIGLYCERIDES (test code = 2232) 61 MG/DL HDL CHOLESTEROL (test code = 2220) 93 MG/DL CALC LDL CHOL (test code = 2237) 110 MG/DL RISK RATIO LDL/HDL (test cod e = 2238) 1.18 RATIO Delfino OrtaCOMPREHENSIVE METABOLIC [id number] 00:00:00* Test Item Value Reference Range Interpretation Comme nts GLUCOSE (test code = 2217) 93 MG/DL BUN (test code = 2208) 20 MG/DL CREATININE (test code = 2214) 1.18 MG/DL eGFR AMER. (test cod e = 74026) 61 ML/MIN/1.73 eGFR NON- AMER. (test code = 20731) 52 ML/MIN/1.73 CALC BUN/CREAT (test code = [...] 2219) 15 U/L Delfino Schumacher AustinCOMPREHENSIVE METABOLIC [id number] 00:00:00* Test Item Value Reference Range Interpretation Comme nts GLUCOSE (test code = 2217) 93 MG/DL BUN (test code = 2208) 20 MG/DL CREATININE (test code = 2214) 1.18 MG/DL eGFR AMER. (test cod e = 76299) 61 ML/MIN/1.73 eGFR NON- AMER. (test code = 03832) 52 ML/MIN/1.73 CALC BUN/CREAT (test code = [...] = 2219) 15 U/L Delfino OrtaCBC W/AUTO [id number] 00:00:00* Test Item Value Reference Range Interpretation [...] code = 1015) 317 K/UL Delfino OrtaLIPID [id number] 00:00:00* Test Item Value Reference Range Interpretation Comme nts CHOLESTEROL (test code = 2210) 215 MG/DL TRIGLYCERIDES (test code = 2232) 61 MG/DL HDL CHOLESTEROL (test code = 2220) 93 MG/DL CALC LDL CHOL (test code = 2237) 110 MG/DL RISK RATIO LDL/HDL (test cod e = 2238) 1.18 RATIO Delfino OrtaCOMPREHENSIVE METABOLIC [id number] 00:00:00* Test Item Value Reference Range Interpretation Comme nts GLUCOSE (test code = 2217) 93 MG/DL BUN (test code = 2208) 20 MG/DL CREATININE (test code = 2214) 1.18 MG/DL eGFR AMER. (test cod e = 06198) 61 ML/MIN/1.73 eGFR NON- AMER. (test code = 30316) 52 ML/MIN/1.73 CALC BUN/CREAT (test code = [...] = 2219) 15 U/L Delfino OrtaCBC W/AUTO [id number] 00:00:00* Test Item Value Reference Range Interpretation [...] code = 1015) 317 K/UL Delfino OrtaLIPID [id number] 00:00:00* Test Item Value Reference Range Interpretation Comme nts CHOLESTEROL (test code = 2210) 215 MG/DL TRIGLYCERIDES (test code = 2232) 61 MG/DL HDL CHOLESTEROL (test code = 2220) 93 MG/DL CALC LDL CHOL (test code = 2237) 110 MG/DL RISK RATIO LDL/HDL (test cod e = 2238) 1.18 RATIO Delfino Endy YouCOMPREHENSIVE METABOLIC [id number] 00:00:00* Test Item Value Reference Range Interpretation Comme nts GLUCOSE (test code = 2217) 93 MG/DL BUN (test code = 2208) 20 MG/DL CREATININE (test code = 2214) 1.18 MG/DL eGFR AMER. (test cod e = 31322) 61 ML/MIN/1.73 eGFR NON- AMER. (test code = 09599) 52 ML/MIN/1.73 CALC BUN/CREAT (test code = [...] = 2219) 15 U/L Delfino OrtaCBC W/AUTO [id number] 00:00:00* Test Item Value Reference Range Interpretation [...] code = 1015) 317 K/UL Delfino OrtaLIPID [id number] 00:00:00* Test Item Value Reference Range Interpretation Comme nts CHOLESTEROL (test code = 2210) 215 MG/DL TRIGLYCERIDES (test code = 2232) 61 MG/DL HDL CHOLESTEROL (test code = 2220) 93 MG/DL CALC LDL CHOL (test code = 2237) 110 MG/DL RISK RATIO LDL/HDL (test cod e = 2238) 1.18 RATIO Delfino OrtaCOMPREHENSIVE METABOLIC [id number] 00:00:00* Test Item Value Reference Range Interpretation Comme nts GLUCOSE (test code = 2217) 93 MG/DL BUN (test code = 2208) 20 MG/DL CREATININE (test code = 2214) 1.18 MG/DL eGFR AMER. (test cod e = 47603) 61 ML/MIN/1.73 eGFR NON- AMER. (test code = 74898) 52 ML/MIN/1.73 CALC BUN/CREAT (test code = [...] = 2219) 15 U/L Delfino OrtaCBC W/AUTO [id number] 00:00:00* Test Item Value Reference Range Interpretation [...] code = 1015) 317 K/UL Delfino OrtaLIPID [id number] 00:00:00* Test Item Value Reference Range Interpretation Comme nts CHOLESTEROL (test code = 2210) 215 MG/DL TRIGLYCERIDES (test code = 2232) 61 MG/DL HDL CHOLESTEROL (test code = 2220) 93 MG/DL CALC LDL CHOL (test code = 2237) 110 MG/DL RISK RATIO LDL/HDL (test cod e = 2238) 1.18 RATIO Delfino OrtaCOMPREHENSIVE METABOLIC [id number] 00:00:00* Test Item Value Reference Range Interpretation Comme nts GLUCOSE (test code = 2217) 93 MG/DL BUN (test code = 2208) 20 MG/DL CREATININE (test code = 2214) 1.18 MG/DL eGFR AMER. (test cod e = 24448) 61 ML/MIN/1.73 eGFR NON- AMER. (test code = 34310) 52 ML/MIN/1.73 CALC BUN/CREAT (test code = [...] = 2219) 15 U/L Delfino OrtaCBC W/AUTO [id number] 00:00:00* Test Item Value Reference Range Interpretation [...] code = 1015) 317 K/UL Delfino OrtaLIPID [id number] 00:00:00* Test Item Value Reference Range Interpretation Comme nts CHOLESTEROL (test code = 2210) 215 MG/DL TRIGLYCERIDES (test code = 2232) 61 MG/DL HDL CHOLESTEROL (test code = 2220) 93 MG/DL CALC LDL CHOL (test code = 2237) 110 MG/DL RISK RATIO LDL/HDL (test cod e = 2238) 1.18 RATIO Delfino OrtaCOMPREHENSIVE METABOLIC [id number] 00:00:00* Test Item Value Reference Range Interpretation Comme nts GLUCOSE (test code = 2217) 93 MG/DL BUN (test code = 2208) 20 MG/DL CREATININE (test code = 2214) 1.18 MG/DL eGFR AMER. (test cod e = 81826) 61 ML/MIN/1.73 eGFR NON- AMER. (test code = 05316) 52 ML/MIN/1.73 CALC BUN/CREAT (test code = [...] = 2219) 15 U/L Delfino OrtaCBC W/AUTO [id number] 00:00:00* Test Item Value Reference Range Interpretation [...] code = 1015) 317 K/UL Delfino OrtaLIPID [id number] 00:00:00* Test Item Value Reference Range Interpretation Comme nts CHOLESTEROL (test code = 2210) 215 MG/DL TRIGLYCERIDES (test code = 2232) 61 MG/DL HDL CHOLESTEROL (test code = 2220) 93 MG/DL CALC LDL CHOL (test code = 2237) 110 MG/DL RISK RATIO LDL/HDL (test cod e = 2238) 1.18 RATIO Delfino OrtaCOMPREHENSIVE METABOLIC [id number] 00:00:00* Test Item Value Reference Range Interpretation Comme nts GLUCOSE (test code = 2217) 93 MG/DL BUN (test code = 2208) 20 MG/DL CREATININE (test code = 2214) 1.18 MG/DL eGFR AMER. (test cod e = 15884) 61 ML/MIN/1.73 eGFR NON- AMER. (test code = 40243) 52 ML/MIN/1.73 CALC BUN/CREAT (test code = [...] = 2219) 15 U/L Delfino OrtaCBC W/AUTO [id number] 00:00:00* Test Item Value Reference Range Interpretation [...] = 1015) 317 K/UL Delfino Schumacher AustinLIPID [id number] 00:00:00* Test Item Value Reference Range Interpretation Comme nts CHOLESTEROL (test code = 2210) 215 MG/DL TRIGLYCERIDES (test code = 2232) 61 MG/DL HDL CHOLESTEROL (test code = 2220) 93 MG/DL CALC LDL CHOL (test code = 2237) 110 MG/DL RISK RATIO LDL/HDL (test cod e = 2238) 1.18 RATIO Delfino OrtaCOMPREHENSIVE METABOLIC [id number] 00:00:00* Test Item Value Reference Range Interpretation Comme nts GLUCOSE (test code = 2217) 93 MG/DL BUN (test code = 2208) 20 MG/DL CREATININE (test code = 2214) 1.18 MG/DL eGFR AMER. (test cod e = 00720) 61 ML/MIN/1.73 eGFR NON- AMER. (test code = 49742) 52 ML/MIN/1.73 CALC BUN/CREAT (test code = [...] = 2219) 15 U/L Delfino OrtaCBC W/AUTO [id number] 00:00:00* Test Item Value Reference Range Interpretation [...] code = 1015) 317 K/UL Delfino OrtaLIPID [id number] 00:00:00* Test Item Value Reference Range Interpretation Comme nts CHOLESTEROL (test code = 2210) 215 MG/DL TRIGLYCERIDES (test code = 2232) 61 MG/DL HDL CHOLESTEROL (test code = 2220) 93 MG/DL CALC LDL CHOL (test code = 2237) 110 MG/DL RISK RATIO LDL/HDL (test cod e = 2238) 1.18 RATIO Delfino OrtaCOMPREHENSIVE METABOLIC [id number] 00:00:00* Test Item Value Reference Range Interpretation Comme nts GLUCOSE (test code = 2217) 93 MG/DL BUN (test code = 2208) 20 MG/DL CREATININE (test code = 2214) 1.18 MG/DL eGFR AMER. (test cod e = 56471) 61 ML/MIN/1.73 eGFR NON- AMER. (test code = 99701) 52 ML/MIN/1.73 CALC BUN/CREAT (test code = [...] = 2219) 15 U/L Delfino OrtaCBC W/AUTO [id number] 00:00:00* Test Item Value Reference Range Interpretation [...] code = 1015) 317 K/UL Delfino OrtaLIPID [id number] 00:00:00* Test Item Value Reference Range Interpretation Comme nts CHOLESTEROL (test code = 2210) 215 MG/DL TRIGLYCERIDES (test code = 2232) 61 MG/DL HDL CHOLESTEROL (test code = 2220) 93 MG/DL CALC LDL CHOL (test code = 2237) 110 MG/DL RISK RATIO LDL/HDL (test cod e = 2238) 1.18 RATIO Delfino Schumacher YouCOMPREHENSIVE METABOLIC [id number] 00:00:00* Test Item Value Reference Range Interpretation Comme nts GLUCOSE (test code = 2217) 93 MG/DL BUN (test code = 2208) 20 MG/DL CREATININE (test code = 2214) 1.18 MG/DL eGFR AMER. (test cod e = 13646) 61 ML/MIN/1.73 eGFR NON- AMER. (test code = 11986) 52 ML/MIN/1.73 CALC BUN/CREAT (test code = [...] = 2219) 15 U/L Delfino OrtaCBC W/AUTO [id number] 00:00:00* Test Item Value Reference Range Interpretation [...] COUNT (test code = 1015) 317 K/UL Delfion OrtaLIPID [id number] 00:00:00* Test Item Value Reference Range Interpretation Comme nts CHOLESTEROL (test code = 2210) 215 MG/DL TRIGLYCERIDES (test code = 2232) 61 MG/DL HDL CHOLESTEROL (test code = 2220) 93 MG/DL CALC LDL CHOL (test code = 2237) 110 MG/DL RISK RATIO LDL/HDL (test cod e = 2238) 1.18 RATIO Delfino OrtaCOMPREHENSIVE METABOLIC [id number] 00:00:00* Test Item Value Reference Range Interpretation Comme nts GLUCOSE (test code = 2217) 93 MG/DL BUN (test code = 2208) 20 MG/DL CREATININE (test code = 2214) 1.18 MG/DL eGFR AMER. (test cod e = 24683) 61 ML/MIN/1.73 eGFR NON- AMER. (test code = 30716) 52 ML/MIN/1.73 CALC BUN/CREAT (test code = [...] = 2219) 15 U/L Delfino OrtaCBC W/AUTO [id number] 00:00:00* Test Item Value Reference Range Interpretation [...] code = 1015) 317 K/UL Delfino OrtaLIPID [id number] 00:00:00* Test Item Value Reference Range Interpretation Comme nts CHOLESTEROL (test code = 2210) 215 MG/DL TRIGLYCERIDES (test code = 2232) 61 MG/DL HDL CHOLESTEROL (test code = 2220) 93 MG/DL CALC LDL CHOL (test code = 2237) 110 MG/DL RISK RATIO LDL/HDL (test cod e = 2238) 1.18 RATIO Delfino OrtaCOMPREHENSIVE METABOLIC [id number] 00:00:00* Test Item Value Reference Range Interpretation Comme nts GLUCOSE (test code = 2217) 93 MG/DL BUN (test code = 2208) 20 MG/DL CREATININE (test code = 2214) 1.18 MG/DL eGFR AMER. (test cod e = 49788) 61 ML/MIN/1.73 eGFR NON- AMER. (test code = 27430) 52 ML/MIN/1.73 CALC BUN/CREAT (test code = [...] 2219) 15 U/L Delfino Schumacher YouCBC W/AUTO [id number] 00:00:00* Test Item Value Reference Range Interpretation [...] code = 1015) 317 K/UL Delfino OrtaLIPID [id number] 00:00:00* Test Item Value Reference Range Interpretation Comme nts CHOLESTEROL (test code = 2210) 215 MG/DL TRIGLYCERIDES (test code = 2232) 61 MG/DL HDL CHOLESTEROL (test code = 2220) 93 MG/DL CALC LDL CHOL (test code = 2237) 110 MG/DL RISK RATIO LDL/HDL (test cod e = 2238) 1.18 RATIO Delfino OrtaCOMPREHENSIVE METABOLIC [id number] 00:00:00* Test Item Value Reference Range Interpretation Comme nts GLUCOSE (test code = 2217) 93 MG/DL BUN (test code = 2208) 20 MG/DL CREATININE (test code = 2214) 1.18 MG/DL eGFR AMER. (test cod e = 24862) 61 ML/MIN/1.73 eGFR NON- AMER. (test code = 48807) 52 ML/MIN/1.73 CALC BUN/CREAT (test code = [...] = 2219) 15 U/L Delfino OrtaCBC W/AUTO [id number] 00:00:00* Test Item Value Reference Range Interpretation [...] code = 1015) 317 K/UL Delfino OrtaLIPID [id number] 00:00:00* Test Item Value Reference Range Interpretation Comme nts CHOLESTEROL (test code = 2210) 215 MG/DL TRIGLYCERIDES (test code = 2232) 61 MG/DL HDL CHOLESTEROL (test code = 2220) 93 MG/DL CALC LDL CHOL (test code = 2237) 110 MG/DL RISK RATIO LDL/HDL (test cod e = 2238) 1.18 RATIO Delfino OrtaCOMPREHENSIVE METABOLIC [id number] 00:00:00* Test Item Value Reference Range Interpretation Comme nts GLUCOSE (test code = 2217) 93 MG/DL BUN (test code = 2208) 20 MG/DL CREATININE (test code = 2214) 1.18 MG/DL eGFR AMER. (test cod e = 39384) 61 ML/MIN/1.73 eGFR NON- AMER. (test code = 30921) 52 ML/MIN/1.73 CALC BUN/CREAT (test code = [...] = 2219) 15 U/L Delfino OrtaCBC W/AUTO [id number] 00:00:00* Test Item Value Reference Range Interpretation [...] code = 1015) 317 K/UL Delfino OrtaLIPID [id number] 00:00:00* Test Item Value Reference Range Interpretation Comme nts CHOLESTEROL (test code = 2210) 215 MG/DL TRIGLYCERIDES (test code = 2232) 61 MG/DL HDL CHOLESTEROL (test code = 2220) 93 MG/DL CALC LDL CHOL (test code = 2237) 110 MG/DL RISK RATIO LDL/HDL (test cod e = 2238) 1.18 RATIO Delfino OrtaCOMPREHENSIVE METABOLIC [id number] 00:00:00* Test Item Value Reference Range Interpretation Comme nts GLUCOSE (test code = 2217) 93 MG/DL BUN (test code = 2208) 20 MG/DL CREATININE (test code = 2214) 1.18 MG/DL eGFR AMER. (test cod e = 07304) 61 ML/MIN/1.73 eGFR NON- AMER. (test code = 60437) 52 ML/MIN/1.73 CALC BUN/CREAT (test code = [...] (test code = 2219) 15 U[facility] [id number] 00:00:00* Test Item Value Reference Range Interpretation [...] code = 1015) 317 K/UL Delfino OrtaLIPID [id number] 00:00:00* Test Item Value Reference Range Interpretation Comme nts CHOLESTEROL (test code = 2210) 215 MG/DL TRIGLYCERIDES (test code = 2232) 61 MG/DL HDL CHOLESTEROL (test code = 2220) 93 MG/DL CALC LDL CHOL (test code = 2237) 110 MG/DL RISK RATIO LDL/HDL (test cod e = 2238) 1.18 RATIO Delfino OrtaCOMPREHENSIVE METABOLIC [id number] 00:00:00* Test Item Value Reference Range Interpretation Comme nts GLUCOSE (test code = 2217) 93 MG/DL BUN (test code = 2208) 20 MG/DL CREATININE (test code = 2214) 1.18 MG/DL eGFR AMER. (test cod e = 05139) 61 ML/MIN/1.73 eGFR NON- AMER. (test code = 46163) 52 ML/MIN/1.73 CALC BUN/CREAT (test code = [...] = 2219) 15 U/L Delfino OrtaCBC W/AUTO [id number] 00:00:00* Test Item Value Reference Range Interpretation [...] code = 1015) 317 K/UL Delfino OrtaLIPID [id number] 00:00:00* Test Item Value Reference Range Interpretation Comme nts CHOLESTEROL (test code = 2210) 215 MG/DL TRIGLYCERIDES (test code = 2232) 61 MG/DL HDL CHOLESTEROL (test code = 2220) 93 MG/DL CALC LDL CHOL (test code = 2237) 110 MG/DL RISK RATIO LDL/HDL (test cod e = 2238) 1.18 RATIO Delfino OrtaCOMPREHENSIVE METABOLIC [id number] 00:00:00* Test Item Value Reference Range Interpretation Comme nts GLUCOSE (test code = 2217) 93 MG/DL BUN (test code = 2208) 20 MG/DL CREATININE (test code = 2214) 1.18 MG/DL eGFR AMER. (test cod e = 68026) 61 ML/MIN/1.73 eGFR NON- AMER. (test code = 00342) 52 ML/MIN/1.73 CALC BUN/CREAT (test code = [...] = 2219) 15 U/L Delfino OrtaCBC W/AUTO [id number] 00:00:00* Test Item Value Reference Range Interpretation [...] code = 1015) 317 K/UL Delfino OrtaLIPID [id number] 00:00:00* Test Item Value Reference Range Interpretation Comme nts CHOLESTEROL (test code = 2210) 215 MG/DL TRIGLYCERIDES (test code = 2232) 61 MG/DL HDL CHOLESTEROL (test code = 2220) 93 MG/DL CALC LDL CHOL (test code = 2237) 110 MG/DL RISK RATIO LDL/HDL (test cod e = 2238) 1.18 RATIO Delfino OrtaCOMPREHENSIVE METABOLIC [id number] 00:00:00* Test Item Value Reference Range Interpretation Comme nts GLUCOSE (test code = 2217) 93 MG/DL BUN (test code = 2208) 20 MG/DL CREATININE (test code = 2214) 1.18 MG/DL eGFR AMER. (test cod e = 81619) 61 ML/MIN/1.73 eGFR NON- AMER. (test code = 55874) 52 ML/MIN/1.73 CALC BUN/CREAT (test code = [...] = 2219) 15 U/L Delfino OrtaCBC W/AUTO [id number] 00:00:00* Test Item Value Reference Range Interpretation [...] code = 1015) 317 K/UL Delfino OrtaLIPID [id number] 00:00:00* Test Item Value Reference Range Interpretation Comme nts CHOLESTEROL (test code = 2210) 215 MG/DL TRIGLYCERIDES (test code = 2232) 61 MG/DL HDL CHOLESTEROL (test code = 2220) 93 MG/DL CALC LDL CHOL (test code = 2237) 110 MG/DL RISK RATIO LDL/HDL (test cod e = 2238) 1.18 RATIO Delfino OrtaCOMPREHENSIVE METABOLIC [id number] 00:00:00* Test Item Value Reference Range Interpretation Comme nts GLUCOSE (test code = 2217) 93 MG/DL BUN (test code = 2208) 20 MG/DL CREATININE (test code = 2214) 1.18 MG/DL eGFR AMER. (test cod e = 21201) 61 ML/MIN/1.73 eGFR NON- AMER. (test code = 60033) 52 ML/MIN/1.73 CALC BUN/CREAT (test code = [...] = 2219) 15 U/L Delfino OrtaCBC W/AUTO [id number] 00:00:00* Test Item Value Reference Range Interpretation [...] code = 1015) 317 K/UL Delfino OrtaLIPID [id number] 00:00:00* Test Item Value Reference Range Interpretation Comme nts CHOLESTEROL (test code = 2210) 215 MG/DL TRIGLYCERIDES (test code = 2232) 61 MG/DL HDL CHOLESTEROL (test code = 2220) 93 MG/DL CALC LDL CHOL (test code = 2237) 110 MG/DL RISK RATIO LDL/HDL (test cod e = 2238) 1.18 RATIO Delfino OrtaCOMPREHENSIVE METABOLIC [id number] 00:00:00* Test Item Value Reference Range Interpretation Comme nts GLUCOSE (test code = 2217) 93 MG/DL BUN (test code = 2208) 20 MG/DL CREATININE (test code = 2214) 1.18 MG/DL eGFR AMER. (test cod e = 59831) 61 ML/MIN/1.73 eGFR NON- AMER. (test code = 31755) 52 ML/MIN/1.73 CALC BUN/CREAT (test code = [...] 2219) 15 U/L Delfino Schumacher YouCBC W/AUTO [id number] 00:00:00* Test Item Value Reference Range Interpretation [...] code = 1015) 317 K/UL Delfino OrtaLIPID [id number] 00:00:00* Test Item Value Reference Range Interpretation Comme nts CHOLESTEROL (test code = 2210) 215 MG/DL TRIGLYCERIDES (test code = 2232) 61 MG/DL HDL CHOLESTEROL (test code = 2220) 93 MG/DL CALC LDL CHOL (test code = 2237) 110 MG/DL RISK RATIO LDL/HDL (test cod e = 2238) 1.18 RATIO Delfino OrtaCOMPREHENSIVE METABOLIC [id number] 00:00:00* Test Item Value Reference Range Interpretation Comme nts GLUCOSE (test code = 2217) 93 MG/DL BUN (test code = 2208) 20 MG/DL CREATININE (test code = 2214) 1.18 MG/DL eGFR AMER. (test cod e = 86922) 61 ML/MIN/1.73 eGFR NON- AMER. (test code = 39502) 52 ML/MIN/1.73 CALC BUN/CREAT (test code = [...] = 2219) 15 U/L Delfino OrtaCBC W/AUTO [id number] 00:00:00* Test Item Value Reference Range Interpretation [...] code = 1015) 317 K/UL Delfino OrtaLIPID [id number] 00:00:00* Test Item Value Reference Range Interpretation Comme nts CHOLESTEROL (test code = 2210) 215 MG/DL TRIGLYCERIDES (test code = 2232) 61 MG/DL HDL CHOLESTEROL (test code = 2220) 93 MG/DL CALC LDL CHOL (test code = 2237) 110 MG/DL RISK RATIO LDL/HDL (test cod e = 2238) 1.18 RATIO Delfino OrtaCOMPREHENSIVE METABOLIC [id number] 00:00:00* Test Item Value Reference Range Interpretation Comme nts GLUCOSE (test code = 2217) 93 MG/DL BUN (test code = 2208) 20 MG/DL CREATININE (test code = 2214) 1.18 MG/DL eGFR AMER. (test cod e = 54899) 61 ML/MIN/1.73 eGFR NON- AMER. (test code = 23734) 52 ML/MIN/1.73 CALC BUN/CREAT (test code = [...] = 2219) 15 U/L Delfino OrtaCBC W/AUTO [id number] 00:00:00* Test Item Value Reference Range Interpretation [...] code = 1015) 317 K/UL Delfino OrtaLIPID [id number] 00:00:00* Test Item Value Reference Range Interpretation Comme nts CHOLESTEROL (test code = 2210) 215 MG/DL TRIGLYCERIDES (test code = 2232) 61 MG/DL HDL CHOLESTEROL (test code = 2220) 93 MG/DL CALC LDL CHOL (test code = 2237) 110 MG/DL RISK RATIO LDL/HDL (test cod e = 2238) 1.18 RATIO Delfino OrtaCOMPREHENSIVE METABOLIC [id number] 00:00:00* Test Item Value Reference Range Interpretation Comme nts GLUCOSE (test code = 2217) 93 MG/DL BUN (test code = 2208) 20 MG/DL CREATININE (test code = 2214) 1.18 MG/DL eGFR AMER. (test cod e = 47125) 61 ML/MIN/1.73 eGFR NON- AMER. (test code = 41041) 52 ML/MIN/1.73 CALC BUN/CREAT (test code = [...] 2219) 15 U/L Delfino Endy YouCBC W/AUTO [id number] 00:00:00* Test Item Value Reference Range Interpretation [...] code = 1015) 317 K/UL Delfino F YouLIPID [id number] 00:00:00* Test Item Value Reference Range Interpretation Comme nts CHOLESTEROL (test code = 2210) 215 MG/DL TRIGLYCERIDES (test code = 2232) 61 MG/DL HDL CHOLESTEROL (test code = 2220) 93 MG/DL CALC LDL CHOL (test code = 2237) 110 MG/DL RISK RATIO LDL/HDL (test cod e = 2238) 1.18 RATIO Delfino Endy YouCOMPREHENSIVE METABOLIC [id number] 00:00:00* Test Item Value Reference Range Interpretation Comme nts GLUCOSE (test code = 2217) 93 MG/DL BUN (test code = 2208) 20 MG/DL CREATININE (test code = 2214) 1.18 MG/DL eGFR AMER. (test cod e = 04336) 61 ML/MIN/1.73 eGFR NON- AMER. (test code = 37791) 52 ML/MIN/1.73 CALC BUN/CREAT (test code = [...] = 2219) 15 U/L Delfino OrtaCBC W/AUTO [id number] 00:00:00* Test Item Value Reference Range Interpretation [...] code = 1015) 317 K/UL Delfino OrtaLIPID [id number] 00:00:00* Test Item Value Reference Range Interpretation Comme nts CHOLESTEROL (test code = 2210) 215 MG/DL TRIGLYCERIDES (test code = 2232) 61 MG/DL HDL CHOLESTEROL (test code = 2220) 93 MG/DL CALC LDL CHOL (test code = 2237) 110 MG/DL RISK RATIO LDL/HDL (test cod e = 2238) 1.18 RATIO Delfino OrtaCOMPREHENSIVE METABOLIC [id number] 00:00:00* Test Item Value Reference Range Interpretation Comme nts GLUCOSE (test code = 2217) 93 MG/DL BUN (test code = 2208) 20 MG/DL CREATININE (test code = 2214) 1.18 MG/DL eGFR AMER. (test cod e = 47053) 61 ML/MIN/1.73 eGFR NON- AMER. (test code = 54082) 52 ML/MIN/1.73 CALC BUN/CREAT (test code = [...] = 2219) 15 U/L Delfino OrtaCBC W/AUTO [id number] 00:00:00* Test Item Value Reference Range Interpretation [...] = 1015) 317 K/UL Delfino Endy YouLIPID [id number] 00:00:00* Test Item Value Reference Range Interpretation Comme nts CHOLESTEROL (test code = 2210) 215 MG/DL TRIGLYCERIDES (test code = 2232) 61 MG/DL HDL CHOLESTEROL (test code = 2220) 93 MG/DL CALC LDL CHOL (test code = 2237) 110 MG/DL RISK RATIO LDL/HDL (test cod e = 2238) 1.18 RATIO Delfino Endy YouCOMPREHENSIVE METABOLIC [id number] 00:00:00* Test Item Value Reference Range Interpretation Comme nts GLUCOSE (test code = 2217) 93 MG/DL BUN (test code = 2208) 20 MG/DL CREATININE (test code = 2214) 1.18 MG/DL eGFR AMER. (test cod e = 74709) 61 ML/MIN/1.73 eGFR NON- AMER. (test code = 17746) 52 ML/MIN/1.73 CALC BUN/CREAT (test code = [...] = 2219) 15 U/L Delfino OrtaCBC W/AUTO [id number] 00:00:00* Test Item Value Reference Range Interpretation [...] code = 1015) 317 K/UL Delfino OrtaLIPID [id number] 00:00:00* Test Item Value Reference Range Interpretation Comme nts CHOLESTEROL (test code = 2210) 215 MG/DL TRIGLYCERIDES (test code = 2232) 61 MG/DL HDL CHOLESTEROL (test code = 2220) 93 MG/DL CALC LDL CHOL (test code = 2237) 110 MG/DL RISK RATIO LDL/HDL (test cod e = 2238) 1.18 RATIO Delfino OrtaCOMPREHENSIVE METABOLIC [id number] 00:00:00* Test Item Value Reference Range Interpretation Comme nts GLUCOSE (test code = 2217) 93 MG/DL BUN (test code = 2208) 20 MG/DL CREATININE (test code = 2214) 1.18 MG/DL eGFR AMER. (test cod e = 74272) 61 ML/MIN/1.73 eGFR NON- AMER. (test code = 06595) 52 ML/MIN/1.73 CALC BUN/CREAT (test code = [...] = 2219) 15 U/L Delfino OrtaCBC W/AUTO [id number] 00:00:00* Test Item Value Reference Range Interpretation [...] code = 1015) 317 K/UL Delfino OrtaLIPID [id number] 00:00:00* Test Item Value Reference Range Interpretation Comme nts CHOLESTEROL (test code = 2210) 215 MG/DL TRIGLYCERIDES (test code = 2232) 61 MG/DL HDL CHOLESTEROL (test code = 2220) 93 MG/DL CALC LDL CHOL (test code = 2237) 110 MG/DL RISK RATIO LDL/HDL (test cod e = 2238) 1.18 RATIO Delfino OrtaCOMPREHENSIVE METABOLIC [id number] 00:00:00* Test Item Value Reference Range Interpretation Comme nts GLUCOSE (test code = 2217) 93 MG/DL BUN (test code = 2208) 20 MG/DL CREATININE (test code = 2214) 1.18 MG/DL eGFR AMER. (test cod e = 50387) 61 ML/MIN/1.73 eGFR NON- AMER. (test code = 96232) 52 ML/MIN/1.73 CALC BUN/CREAT (test code = [...] = 2219) 15 U/L Delfino OrtaCBC W/AUTO [id number] 00:00:00* Test Item Value Reference Range Interpretation [...] code = 1015) 317 K/UL Delfino OrtaLIPID [id number] 00:00:00* Test Item Value Reference Range Interpretation Comme nts CHOLESTEROL (test code = 2210) 215 MG/DL TRIGLYCERIDES (test code = 2232) 61 MG/DL HDL CHOLESTEROL (test code = 2220) 93 MG/DL CALC LDL CHOL (test code = 2237) 110 MG/DL RISK RATIO LDL/HDL (test cod e = 2238) 1.18 RATIO Delfino OrtaCOMPREHENSIVE METABOLIC [id number] 00:00:00* Test Item Value Reference Range Interpretation Comme nts GLUCOSE (test code = 2217) 93 MG/DL BUN (test code = 2208) 20 MG/DL CREATININE (test code = 2214) 1.18 MG/DL eGFR AMER. (test cod e = 32970) 61 ML/MIN/1.73 eGFR NON- AMER. (test code = 71653) 52 ML/MIN/1.73 CALC BUN/CREAT (test code = [...] = 2219) 15 U/L Delfino OrtaCBC W/AUTO [id number] 00:00:00* Test Item Value Reference Range Interpretation [...] (test code = 1015) 317 K/UL [facility] [id number] 00:00:00* Test Item Value Reference Range Interpretation [...] (test code = 1015) 317 K/UL LIPID [id number] 00:00:00* Test Item Value Reference Range Interpretation Comme nts CHOLESTEROL (test code = 2210) 215 MG/DL TRIGLYCERIDES (test code = 2232) 61 MG/DL HDL CHOLESTEROL (test code = 2220) 93 MG/DL CALC LDL CHOL (test code = 2237) 110 MG/DL RISK RATIO LDL/HDL (test cod e = 2238) 1.18 RATIO CULTURE, URINE [ADDED]2017-08-24 00:00:00* Test Item Value Reference Range Interpretation Comme nts CULTURE, URINE (test code = 90767) SPECIMEN NUMBER: [id number] CULTURE, URINE [ADDED]2017-08-24 00:00:00* Test Item Value Reference Range Interpretation Comme nts CULTURE, URINE (test code = 17521) SPECIMEN NUMBER: [id number] CULTURE, URINE [ADDED]2017-08-24 00:00:00* Test Item Value Reference Range Interpretation Comme nts CULTURE, URINE (test code = 43122) SPECIMEN NUMBER: [id number] CULTURE, URINE [ADDED]2017-08-24 00:00:00* Test Item Value Reference Range Interpretation Comme nts CULTURE, URINE (test code = 94854) SPECIMEN NUMBER: [id number] CULTURE, URINE [ADDED]2017-08-24 00:00:00* Test Item Value Reference Range Interpretation Comme nts CULTURE, URINE (test code = 96664) SPECIMEN NUMBER: [id number] Delfino OrtaCULTURE, URINE [ADDED]2017-08-24 00:00:00* Test Item Value Reference Range Interpretation Comme nts CULTURE, URINE (test code = 52909) SPECIMEN NUMBER: [id number] Delfino OrtaCULTURE, URINE [ADDED]2017-08-24 00:00:00* Test Item Value Reference Range Interpretation Comme nts CULTURE, URINE (test code = 63472) SPECIMEN NUMBER: [id number] Delfino OrtaCULTURE, URINE [ADDED]2017-08-24 00:00:00* Test Item Value Reference Range Interpretation Comme nts CULTURE, URINE (test code = 84404) SPECIMEN NUMBER: [id number] Delfino OrtaCULTURE, URINE [ADDED]2017-08-24 00:00:00* Test Item Value Reference Range Interpretation Comme nts CULTURE, URINE (test code = 28478) SPECIMEN NUMBER: [id number] Delfino OrtaCULTURE, URINE [ADDED]2017-08-24 00:00:00* Test Item Value Reference Range Interpretation Comme nts CULTURE, URINE (test code = 37361) SPECIMEN NUMBER: [id number] Delfino OrtaCULTURE, URINE [ADDED]2017-08-24 00:00:00* Test Item Value Reference Range Interpretation Comme nts CULTURE, URINE (test code = 28070) SPECIMEN NUMBER: [id number] Delfino OrtaCULTURE, URINE [ADDED]2017-08-24 00:00:00* Test Item Value Reference Range Interpretation Comme nts CULTURE, URINE (test code = 32598) SPECIMEN NUMBER: [id number] Delfino OrtaCULTURE, URINE [ADDED]2017-08-24 00:00:00* Test Item Value Reference Range Interpretation Comme nts CULTURE, URINE (test code = 84481) SPECIMEN NUMBER: [id number] Delfino OrtaCULTURE, URINE [ADDED]2017-08-24 00:00:00* Test Item Value Reference Range Interpretation Comme nts CULTURE, URINE (test code = 03167) SPECIMEN NUMBER: [id number] Delfino SarmientoLTURE, URINE [ADDED]2017-08-24 00:00:00* Test Item Value Reference Range Interpretation Comme nts CULTURE, URINE (test code = 68688) SPECIMEN NUMBER: [id number] Delfino SarmientoLTURE, URINE [ADDED]2017-08-24 00:00:00* Test Item Value Reference Range Interpretation Comme nts CULTURE, URINE (test code = 96487) SPECIMEN NUMBER: [id number] Delfino OrtaCULTURE, URINE [ADDED]2017-08-24 00:00:00* Test Item Value Reference Range Interpretation Comme nts CULTURE, URINE (test code = 92151) SPECIMEN NUMBER: [id number] Delfino OrtaCULTURE, URINE [ADDED]2017-08-24 00:00:00* Test Item Value Reference Range Interpretation Comme nts CULTURE, URINE (test code = 89059) SPECIMEN NUMBER: [id number] Delfino OrtaCULTURE, URINE [ADDED]2017-08-24 00:00:00* Test Item Value Reference Range Interpretation Comme nts CULTURE, URINE (test code = 92181) SPECIMEN NUMBER: [id number] Delfino OrtaCULTURE, URINE [ADDED]2017-08-24 00:00:00* Test Item Value Reference Range Interpretation Comme nts CULTURE, URINE (test code = 54750) SPECIMEN NUMBER: [id number] Delfino OrtaCULTURE, URINE [ADDED]2017-08-24 00:00:00* Test Item Value Reference Range Interpretation Comme nts CULTURE, URINE (test code = 28993) SPECIMEN NUMBER: [id number] Delfino OrtaCULTURE, URINE [ADDED]2017-08-24 00:00:00* Test Item Value Reference Range Interpretation Comme nts CULTURE, URINE (test code = 62616) SPECIMEN NUMBER: [id number] Delfino OrtaCULTURE, URINE [ADDED]2017-08-24 00:00:00* Test Item Value Reference Range Interpretation Comme nts CULTURE, URINE (test code = 46365) SPECIMEN NUMBER: [id number] Delfino OrtaCULTURE, URINE [ADDED]2017-08-24 00:00:00* Test Item Value Reference Range Interpretation Comme nts CULTURE, URINE (test code = 30550) SPECIMEN NUMBER: [id number] Delfino SarmientoLTURE, URINE [ADDED]2017-08-24 00:00:00* Test Item Value Reference Range Interpretation Comme nts CULTURE, URINE (test code = 49375) SPECIMEN NUMBER: [id number] Delfino SarmientoLTURE, URINE [ADDED]2017-08-24 00:00:00* Test Item Value Reference Range Interpretation Comme nts CULTURE, URINE (test code = 47646) SPECIMEN NUMBER: [id number] Delfino OrtaCULTURE, URINE [ADDED]2017-08-24 00:00:00* Test Item Value Reference Range Interpretation Comme nts CULTURE, URINE (test code = 84091) SPECIMEN NUMBER: [id number] Delfino OrtaCULTURE, URINE [ADDED]2017-08-24 00:00:00* Test Item Value Reference Range Interpretation Comme nts CULTURE, URINE (test code = 16649) SPECIMEN NUMBER: [id number] Delfino OrtaCULTURE, URINE [ADDED]2017-08-24 00:00:00* Test Item Value Reference Range Interpretation Comme nts CULTURE, URINE (test code = 46729) SPECIMEN NUMBER: [id number] Delfino OrtaCULTURE, URINE [ADDED]2017-08-24 00:00:00* Test Item Value Reference Range Interpretation Comme nts CULTURE, URINE (test code = 86965) SPECIMEN NUMBER: [id number] Delfino OrtaCULTURE, URINE [ADDED]2017-08-24 00:00:00* Test Item Value Reference Range Interpretation Comme nts CULTURE, URINE (test code = 16806) SPECIMEN NUMBER: [id number] Delfino OrtaCULTURE, URINE [ADDED]2017-08-24 00:00:00* Test Item Value Reference Range Interpretation Comme nts CULTURE, URINE (test code = 67232) SPECIMEN NUMBER: [id number] Delfino OrtaCULTURE, URINE [ADDED]2017-08-24 00:00:00* Test Item Value Reference Range Interpretation Comme nts CULTURE, URINE (test code = 56611) SPECIMEN NUMBER: [id number] Delfino OrtaCULTURE, URINE [ADDED]2017-08-24 00:00:00* Test Item Value Reference Range Interpretation Comme nts CULTURE, URINE (test code = 30523) SPECIMEN NUMBER: [id number] Delfino OrtaCULTURE, URINE [ADDED]2017-08-24 00:00:00* Test Item Value Reference Range Interpretation Comme nts CULTURE, URINE (test code = 78681) SPECIMEN NUMBER: [id number] Delfino SarmientoLTURE, URINE [ADDED]2017-08-24 00:00:00* Test Item Value Reference Range Interpretation Comme nts CULTURE, URINE (test code = 43426) SPECIMEN NUMBER: [id number] Delfino SarmientoLTURE, URINE [ADDED]2017-08-24 00:00:00* Test Item Value Reference Range Interpretation Comme nts CULTURE, URINE (test code = 09901) SPECIMEN NUMBER: [id number] Delfino YanceyURE, URINE [ADDED]2017-08-24 00:00:00* Test Item Value Reference Range Interpretation Comme nts CULTURE, URINE (test code = 61088) SPECIMEN NUMBER: [id number] Delfino OrtaHEPATITIS C REFLEX [id number] 00:00:00* Test Item Value Reference Range Interpretation Comme nts HEPATITIS C ANTIBODY (test c ode = 4675) NON-REACTIVE CBC W/AUTO [id number] 00:00:00* Test Item Value Reference Range Interpretation [...] (test code = 1016) (NOTE) COMPREHENSIVE METABOLIC [id number] 00:00:00* Test Item Value Reference Range Interpretation Comme nts GLUCOSE (test code = 2217) 92 MG/DL BUN (test code = 2208) 23 MG/DL CREATININE (test code = 2214) 1.27 MG/DL eGFR AMER. (test cod e = 80788) 55 ML/MIN/1.73 eGFR NON- AMER. (test code = 77377) 48 ML/MIN/1.73 CALC BUN/CREAT (test code = [...] = 2219) 23 U/L HEPATITIS C REFLEX [id number] 00:00:00* Test Item Value Reference Range Interpretation Comme nts HEPATITIS C ANTIBODY (test c ode = 4675) NON-REACTIVE CBC W/AUTO [id number] 00:00:00* Test Item Value Reference Range Interpretation [...] (test code = 1016) (NOTE) COMPREHENSIVE METABOLIC [id number] 00:00:00* Test Item Value Reference Range Interpretation Comme nts GLUCOSE (test code = 2217) 92 MG/DL BUN (test code = 2208) 23 MG/DL CREATININE (test code = 2214) 1.27 MG/DL eGFR AMER. (test cod e = 00969) 55 ML/MIN/1.73 eGFR NON- AMER. (test code = 39376) 48 ML/MIN/1.73 CALC BUN/CREAT (test code = [...] = 2219) 23 U/L HEPATITIS C REFLEX [id number] 00:00:00* Test Item Value Reference Range Interpretation Comme nts HEPATITIS C ANTIBODY (test c ode = 4675) NON-REACTIVE CBC W/AUTO [id number] 00:00:00* Test Item Value Reference Range Interpretation [...] (test code = 1016) (NOTE) COMPREHENSIVE METABOLIC [id number] 00:00:00* Test Item Value Reference Range Interpretation Comme nts GLUCOSE (test code = 2217) 92 MG/DL BUN (test code = 2208) 23 MG/DL CREATININE (test code = 2214) 1.27 MG/DL eGFR AMER. (test cod e = 44840) 55 ML/MIN/1.73 eGFR NON- AMER. (test code = 04857) 48 ML/MIN/1.73 CALC BUN/CREAT (test code = [...] = 2219) 23 U/L HEPATITIS C REFLEX [id number] 00:00:00* Test Item Value Reference Range Interpretation Comme nts HEPATITIS C ANTIBODY (test c ode = 4675) NON-REACTIVE HEPATITIS C REFLEX [id number] 00:00:00* Test Item Value Reference Range Interpretation Comme nts HEPATITIS C ANTIBODY (test c ode = 4675) NON-REACTIVE [facility] [id number] 00:00:00* Test Item Value Reference Range Interpretation [...] = 1016) (NOTE) Delfino Schumacher YouCOMPREHENSIVE METABOLIC [id number] 00:00:00* Test Item Value Reference Range Interpretation Comme nts GLUCOSE (test code = 2217) 92 MG/DL BUN (test code = 2208) 23 MG/DL CREATININE (test code = 2214) 1.27 MG/DL eGFR AMER. (test cod e = 33101) 55 ML/MIN/1.73 eGFR NON- AMER. (test code = 93074) 48 ML/MIN/1.73 CALC BUN/CREAT (test code = [...] 23 U/L Delfino Schumacher YouHEPATITIS C REFLEX [id number] 00:00:00* Test Item Value Reference Range Interpretation Comme nts HEPATITIS C ANTIBODY (test c ode = 4675) NON-REACTIVE Delfino OrtaCBC W/AUTO [id number] 00:00:00* Test Item Value Reference Range Interpretation [...] code = 1016) (NOTE) Delfino OrtaCOMPREHENSIVE METABOLIC [id number] 00:00:00* Test Item Value Reference Range Interpretation Comme nts GLUCOSE (test code = 2217) 92 MG/DL BUN (test code = 2208) 23 MG/DL CREATININE (test code = 2214) 1.27 MG/DL eGFR AMER. (test cod e = 61583) 55 ML/MIN/1.73 eGFR NON- AMER. (test code = 11223) 48 ML/MIN/1.73 CALC BUN/CREAT (test code = [...] 2219) 23 U/L Delfino OrtaHEPATITIS C REFLEX [id number] 00:00:00* Test Item Value Reference Range Interpretation Comme nts HEPATITIS C ANTIBODY (test c ode = 4675) NON-REACTIVE Delfino OrtaCOMPREHENSIVE METABOLIC [id number] 00:00:00* Test Item Value Reference Range Interpretation Comme nts GLUCOSE (test code = 2217) 92 MG/DL BUN (test code = 2208) 23 MG/DL CREATININE (test code = 2214) 1.27 MG/DL eGFR AMER. (test cod e = 58743) 55 ML/MIN/1.73 eGFR NON- AMER. (test code = 82020) 48 ML/MIN/1.73 CALC BUN/CREAT (test code = [...] = 2219) 23 U/L Delfino OrtaCBC W/AUTO [id number] 00:00:00* Test Item Value Reference Range Interpretation [...] code = 1016) (NOTE) Delfino OrtaCOMPREHENSIVE METABOLIC [id number] 00:00:00* Test Item Value Reference Range Interpretation Comme nts GLUCOSE (test code = 2217) 92 MG/DL BUN (test code = 2208) 23 MG/DL CREATININE (test code = 2214) 1.27 MG/DL eGFR AMER. (test cod e = 13745) 55 ML/MIN/1.73 eGFR NON- AMER. (test code = 18264) 48 ML/MIN/1.73 CALC BUN/CREAT (test code = [...] 2219) 23 U/L Delfino OrtaHEPATITIS C REFLEX [id number] 00:00:00* Test Item Value Reference Range Interpretation Comme nts HEPATITIS C ANTIBODY (test c ode = 4675) NON-REACTIVE Delfino OrtaCBC W/AUTO [id number] 00:00:00* Test Item Value Reference Range Interpretation [...] code = 1016) (NOTE) Delfino OrtaCOMPREHENSIVE METABOLIC [id number] 00:00:00* Test Item Value Reference Range Interpretation Comme nts GLUCOSE (test code = 2217) 92 MG/DL BUN (test code = 2208) 23 MG/DL CREATININE (test code = 2214) 1.27 MG/DL eGFR AMER. (test cod e = 46816) 55 ML/MIN/1.73 eGFR NON- AMER. (test code = 48968) 48 ML/MIN/1.73 CALC BUN/CREAT (test code = [...] 2219) 23 U/L Delfino OrtaHEPATITIS C REFLEX [id number] 00:00:00* Test Item Value Reference Range Interpretation Comme nts HEPATITIS C ANTIBODY (test c ode = 4675) NON-REACTIVE Delfino OrtaHEPATITIS C REFLEX [id number] 00:00:00* Test Item Value Reference Range Interpretation Comme nts HEPATITIS C ANTIBODY (test c ode = 4675) NON-REACTIVE Delfino OrtaCBC W/AUTO [id number] 00:00:00* Test Item Value Reference Range Interpretation [...] code = 1016) (NOTE) Delfino OrtaCOMPREHENSIVE METABOLIC [id number] 00:00:00* Test Item Value Reference Range Interpretation Comme nts GLUCOSE (test code = 2217) 92 MG/DL BUN (test code = 2208) 23 MG/DL CREATININE (test code = 2214) 1.27 MG/DL eGFR AMER. (test cod e = 46754) 55 ML/MIN/1.73 eGFR NON- AMER. (test code = 62265) 48 ML/MIN/1.73 CALC BUN/CREAT (test code = [...] 2219) 23 U/L Delfino OrtaHEPATITIS C REFLEX [id number] 00:00:00* Test Item Value Reference Range Interpretation Comme nts HEPATITIS C ANTIBODY (test c ode = 4675) NON-REACTIVE Delfino OrtaCBC W/AUTO [id number] 00:00:00* Test Item Value Reference Range Interpretation [...] code = 1016) (NOTE) Delfino OrtaCOMPREHENSIVE METABOLIC [id number] 00:00:00* Test Item Value Reference Range Interpretation Comme nts GLUCOSE (test code = 2217) 92 MG/DL BUN (test code = 2208) 23 MG/DL CREATININE (test code = 2214) 1.27 MG/DL eGFR AMER. (test cod e = 66793) 55 ML/MIN/1.73 eGFR NON- AMER. (test code = 35165) 48 ML/MIN/1.73 CALC BUN/CREAT (test code = [...] 23 U/L Delfino Schumacher YouHEPATITIS C REFLEX [id number] 00:00:00* Test Item Value Reference Range Interpretation Comme nts HEPATITIS C ANTIBODY (test c ode = 4675) NON-REACTIVE Delfino Schumacher YouCBC W/AUTO [id number] 00:00:00* Test Item Value Reference Range Interpretation [...] = 1016) (NOTE) Delfino Schumacher YouCOMPREHENSIVE METABOLIC [id number] 00:00:00* Test Item Value Reference Range Interpretation Comme nts GLUCOSE (test code = 2217) 92 MG/DL BUN (test code = 2208) 23 MG/DL CREATININE (test code = 2214) 1.27 MG/DL eGFR AMER. (test cod e = 04373) 55 ML/MIN/1.73 eGFR NON- AMER. (test code = 71253) 48 ML/MIN/1.73 CALC BUN/CREAT (test code = [...] 23 U/L Delfino Schumacher YouHEPATITIS C REFLEX [id number] 00:00:00* Test Item Value Reference Range Interpretation Comme nts HEPATITIS C ANTIBODY (test c ode = 4675) NON-REACTIVE Delfino Schumacher YouCBC W/AUTO [id number] 00:00:00* Test Item Value Reference Range Interpretation [...] code = 1016) (NOTE) Delfino OrtaCOMPREHENSIVE METABOLIC [id number] 00:00:00* Test Item Value Reference Range Interpretation Comme nts GLUCOSE (test code = 2217) 92 MG/DL BUN (test code = 2208) 23 MG/DL CREATININE (test code = 2214) 1.27 MG/DL eGFR AMER. (test cod e = 97819) 55 ML/MIN/1.73 eGFR NON- AMER. (test code = 41136) 48 ML/MIN/1.73 CALC BUN/CREAT (test code = [...] 2219) 23 U/L Delfino OrtaHEPATITIS C REFLEX [id number] 00:00:00* Test Item Value Reference Range Interpretation Comme nts HEPATITIS C ANTIBODY (test c ode = 4675) NON-REACTIVE Delfino OrtaCBC W/AUTO [id number] 00:00:00* Test Item Value Reference Range Interpretation [...] code = 1016) (NOTE) Delfino OrtaCOMPREHENSIVE METABOLIC [id number] 00:00:00* Test Item Value Reference Range Interpretation Comme nts GLUCOSE (test code = 2217) 92 MG/DL BUN (test code = 2208) 23 MG/DL CREATININE (test code = 2214) 1.27 MG/DL eGFR AMER. (test cod e = 93900) 55 ML/MIN/1.73 eGFR NON- AMER. (test code = 47060) 48 ML/MIN/1.73 CALC BUN/CREAT (test code = [...] 2219) 23 U/L Delfino OrtaHEPATITIS C REFLEX [id number] 00:00:00* Test Item Value Reference Range Interpretation Comme nts HEPATITIS C ANTIBODY (test c ode = 4675) NON-REACTIVE Delfino OrtaCBC W/AUTO [id number] 00:00:00* Test Item Value Reference Range Interpretation [...] = 1016) (NOTE) Delfino Schumacher YouCOMPREHENSIVE METABOLIC [id number] 00:00:00* Test Item Value Reference Range Interpretation Comme nts GLUCOSE (test code = 2217) 92 MG/DL BUN (test code = 2208) 23 MG/DL CREATININE (test code = 2214) 1.27 MG/DL eGFR AMER. (test cod e = 83065) 55 ML/MIN/1.73 eGFR NON- AMER. (test code = 61969) 48 ML/MIN/1.73 CALC BUN/CREAT (test code = [...] 23 U/L Delfino Schumacher YouHEPATITIS C REFLEX [id number] 00:00:00* Test Item Value Reference Range Interpretation Comme nts HEPATITIS C ANTIBODY (test c ode = 4675) NON-REACTIVE Delfino OrtaCBC W/AUTO [id number] 00:00:00* Test Item Value Reference Range Interpretation [...] code = 1016) (NOTE) Delfino OrtaCOMPREHENSIVE METABOLIC [id number] 00:00:00* Test Item Value Reference Range Interpretation Comme nts GLUCOSE (test code = 2217) 92 MG/DL BUN (test code = 2208) 23 MG/DL CREATININE (test code = 2214) 1.27 MG/DL eGFR AMER. (test cod e = 00506) 55 ML/MIN/1.73 eGFR NON- AMER. (test code = 79667) 48 ML/MIN/1.73 CALC BUN/CREAT (test code = [...] 2219) 23 U/L Delfino OrtaHEPATITIS C REFLEX [id number] 00:00:00* Test Item Value Reference Range Interpretation Comme nts HEPATITIS C ANTIBODY (test c ode = 4675) NON-REACTIVE Delfino OrtaCBC W/AUTO [id number] 00:00:00* Test Item Value Reference Range Interpretation [...] code = 1016) (NOTE) Delfino OrtaCOMPREHENSIVE METABOLIC [id number] 00:00:00* Test Item Value Reference Range Interpretation Comme nts GLUCOSE (test code = 2217) 92 MG/DL BUN (test code = 2208) 23 MG/DL CREATININE (test code = 2214) 1.27 MG/DL eGFR AMER. (test cod e = 86439) 55 ML/MIN/1.73 eGFR NON- AMER. (test code = 98000) 48 ML/MIN/1.73 CALC BUN/CREAT (test code = [...] 2219) 23 U/L Delfino OrtaHEPATITIS C REFLEX [id number] 00:00:00* Test Item Value Reference Range Interpretation Comme nts HEPATITIS C ANTIBODY (test c ode = 4675) NON-REACTIVE Delfino OrtaCBC W/AUTO [id number] 00:00:00* Test Item Value Reference Range Interpretation [...] code = 1016) (NOTE) Delfino OrtaCOMPREHENSIVE METABOLIC [id number] 00:00:00* Test Item Value Reference Range Interpretation Comme nts GLUCOSE (test code = 2217) 92 MG/DL BUN (test code = 2208) 23 MG/DL CREATININE (test code = 2214) 1.27 MG/DL eGFR AMER. (test cod e = 51285) 55 ML/MIN/1.73 eGFR NON- AMER. (test code = 37544) 48 ML/MIN/1.73 CALC BUN/CREAT (test code = [...] 23 U/L Delfino Schumacher YouHEPATITIS C REFLEX [id number] 00:00:00* Test Item Value Reference Range Interpretation Comme nts HEPATITIS C ANTIBODY (test c ode = 4675) NON-REACTIVE Delfino Schumacher YouCBC W/AUTO [id number] 00:00:00* Test Item Value Reference Range Interpretation [...] = 1016) (NOTE) Delfino Schumacher YouCOMPREHENSIVE METABOLIC [id number] 00:00:00* Test Item Value Reference Range Interpretation Comme nts GLUCOSE (test code = 2217) 92 MG/DL BUN (test code = 2208) 23 MG/DL CREATININE (test code = 2214) 1.27 MG/DL eGFR AMER. (test cod e = 14422) 55 ML/MIN/1.73 eGFR NON- AMER. (test code = 88955) 48 ML/MIN/1.73 CALC BUN/CREAT (test code = [...] 2219) 23 U/L Delfino OrtaHEPATITIS C REFLEX [id number] 00:00:00* Test Item Value Reference Range Interpretation Comme nts HEPATITIS C ANTIBODY (test c ode = 4675) NON-REACTIVE Delfino OrtaCBC W/AUTO [id number] 00:00:00* Test Item Value Reference Range Interpretation [...] code = 1016) (NOTE) Delfino OrtaCOMPREHENSIVE METABOLIC [id number] 00:00:00* Test Item Value Reference Range Interpretation Comme nts GLUCOSE (test code = 2217) 92 MG/DL BUN (test code = 2208) 23 MG/DL CREATININE (test code = 2214) 1.27 MG/DL eGFR AMER. (test cod e = 05114) 55 ML/MIN/1.73 eGFR NON- AMER. (test code = 94271) 48 ML/MIN/1.73 CALC BUN/CREAT (test code = [...] 2219) 23 U/L Delfino OrtaHEPATITIS C REFLEX [id number] 00:00:00* Test Item Value Reference Range Interpretation Comme nts HEPATITIS C ANTIBODY (test c ode = 4675) NON-REACTIVE Delfino OrtaCBC W/AUTO [id number] 00:00:00* Test Item Value Reference Range Interpretation [...] code = 1016) (NOTE) Delfino OrtaCOMPREHENSIVE METABOLIC [id number] 00:00:00* Test Item Value Reference Range Interpretation Comme nts GLUCOSE (test code = 2217) 92 MG/DL BUN (test code = 2208) 23 MG/DL CREATININE (test code = 2214) 1.27 MG/DL eGFR AMER. (test cod e = 09819) 55 ML/MIN/1.73 eGFR NON- AMER. (test code = 04811) 48 ML/MIN/1.73 CALC BUN/CREAT (test code = [...] 2219) 23 U/L Delfino OrtaHEPATITIS C REFLEX [id number] 00:00:00* Test Item Value Reference Range Interpretation Comme nts HEPATITIS C ANTIBODY (test c ode = 4675) NON-REACTIVE Delfino OrtaCBC W/AUTO [id number] 00:00:00* Test Item Value Reference Range Interpretation [...] code = 1016) (NOTE) Delfino OrtaCOMPREHENSIVE METABOLIC [id number] 00:00:00* Test Item Value Reference Range Interpretation Comme nts GLUCOSE (test code = 2217) 92 MG/DL BUN (test code = 2208) 23 MG/DL CREATININE (test code = 2214) 1.27 MG/DL eGFR AMER. (test cod e = 58470) 55 ML/MIN/1.73 eGFR NON- AMER. (test code = 68541) 48 ML/MIN/1.73 CALC BUN/CREAT (test code = [...] 2219) 23 U/L Delfino OrtaHEPATITIS C REFLEX [id number] 00:00:00* Test Item Value Reference Range Interpretation Comme nts HEPATITIS C ANTIBODY (test c ode = 4675) NON-REACTIVE Delfino OrtaCBC W/AUTO [id number] 00:00:00* Test Item Value Reference Range Interpretation [...] = 1016) (NOTE) Delfino Schumacher YouCOMPREHENSIVE METABOLIC [id number] 00:00:00* Test Item Value Reference Range Interpretation Comme nts GLUCOSE (test code = 2217) 92 MG/DL BUN (test code = 2208) 23 MG/DL CREATININE (test code = 2214) 1.27 MG/DL eGFR AMER. (test cod e = 15845) 55 ML/MIN/1.73 eGFR NON- AMER. (test code = 10651) 48 ML/MIN/1.73 CALC BUN/CREAT (test code = [...] 2219) 23 U/L Delfino OrtaHEPATITIS C REFLEX [id number] 00:00:00* Test Item Value Reference Range Interpretation Comme nts HEPATITIS C ANTIBODY (test c ode = 4675) NON-REACTIVE Delfino OrtaCBC W/AUTO [id number] 00:00:00* Test Item Value Reference Range Interpretation [...] code = 1016) (NOTE) Delfino OrtaCOMPREHENSIVE METABOLIC [id number] 00:00:00* Test Item Value Reference Range Interpretation Comme nts GLUCOSE (test code = 2217) 92 MG/DL BUN (test code = 2208) 23 MG/DL CREATININE (test code = 2214) 1.27 MG/DL eGFR AMER. (test cod e = 46619) 55 ML/MIN/1.73 eGFR NON- AMER. (test code = 76536) 48 ML/MIN/1.73 CALC BUN/CREAT (test code = [...] 2219) 23 U/L Delfino OrtaHEPATITIS C REFLEX [id number] 00:00:00* Test Item Value Reference Range Interpretation Comme nts HEPATITIS C ANTIBODY (test c ode = 4675) NON-REACTIVE Delfino OrtaCBC W/AUTO [id number] 00:00:00* Test Item Value Reference Range Interpretation [...] code = 1016) (NOTE) Delfino OrtaCOMPREHENSIVE METABOLIC [id number] 00:00:00* Test Item Value Reference Range Interpretation Comme nts GLUCOSE (test code = 2217) 92 MG/DL BUN (test code = 2208) 23 MG/DL CREATININE (test code = 2214) 1.27 MG/DL eGFR AMER. (test cod e = 15939) 55 ML/MIN/1.73 eGFR NON- AMER. (test code = 25856) 48 ML/MIN/1.73 CALC BUN/CREAT (test code = [...] 2219) 23 U/L Delfino OrtaHEPATITIS C REFLEX [id number] 00:00:00* Test Item Value Reference Range Interpretation Comme nts HEPATITIS C ANTIBODY (test c ode = 4675) NON-REACTIVE Delfino OrtaCBC W/AUTO [id number] 00:00:00* Test Item Value Reference Range Interpretation [...] code = 1016) (NOTE) Delfino OrtaCOMPREHENSIVE METABOLIC [id number] 00:00:00* Test Item Value Reference Range Interpretation Comme nts GLUCOSE (test code = 2217) 92 MG/DL BUN (test code = 2208) 23 MG/DL CREATININE (test code = 2214) 1.27 MG/DL eGFR AMER. (test cod e = 55380) 55 ML/MIN/1.73 eGFR NON- AMER. (test code = 67924) 48 ML/MIN/1.73 CALC BUN/CREAT (test code = [...] 2219) 23 U/L Delfino OrtaHEPATITIS C REFLEX [id number] 00:00:00* Test Item Value Reference Range Interpretation Comme nts HEPATITIS C ANTIBODY (test c ode = 4675) NON-REACTIVE Delfino Endy YouCBC W/AUTO [id number] 00:00:00* Test Item Value Reference Range Interpretation [...] code = 1016) (NOTE) Delfino OrtaCOMPREHENSIVE METABOLIC [id number] 00:00:00* Test Item Value Reference Range Interpretation Comme nts GLUCOSE (test code = 2217) 92 MG/DL BUN (test code = 2208) 23 MG/DL CREATININE (test code = 2214) 1.27 MG/DL eGFR AMER. (test cod e = 53908) 55 ML/MIN/1.73 eGFR NON- AMER. (test code = 72574) 48 ML/MIN/1.73 CALC BUN/CREAT (test code = [...] 23 U/L Delfino Schumacher YouHEPATITIS C REFLEX [id number] 00:00:00* Test Item Value Reference Range Interpretation Comme nts HEPATITIS C ANTIBODY (test c ode = 4675) NON-REACTIVE Delfino Schumacher YouCBC W/AUTO [id number] 00:00:00* Test Item Value Reference Range Interpretation [...] code = 1016) (NOTE) Delfino OrtaCOMPREHENSIVE METABOLIC [id number] 00:00:00* Test Item Value Reference Range Interpretation Comme nts GLUCOSE (test code = 2217) 92 MG/DL BUN (test code = 2208) 23 MG/DL CREATININE (test code = 2214) 1.27 MG/DL eGFR AMER. (test cod e = 11572) 55 ML/MIN/1.73 eGFR NON- AMER. (test code = 63353) 48 ML/MIN/1.73 CALC BUN/CREAT (test code = [...] 2219) 23 U/L Delfino OrtaHEPATITIS C REFLEX [id number] 00:00:00* Test Item Value Reference Range Interpretation Comme nts HEPATITIS C ANTIBODY (test c ode = 4675) NON-REACTIVE Delfino OrtaCBC W/AUTO [id number] 00:00:00* Test Item Value Reference Range Interpretation [...] code = 1016) (NOTE) Delfino OrtaCOMPREHENSIVE METABOLIC [id number] 00:00:00* Test Item Value Reference Range Interpretation Comme nts GLUCOSE (test code = 2217) 92 MG/DL BUN (test code = 2208) 23 MG/DL CREATININE (test code = 2214) 1.27 MG/DL eGFR AMER. (test cod e = 96169) 55 ML/MIN/1.73 eGFR NON- AMER. (test code = 80890) 48 ML/MIN/1.73 CALC BUN/CREAT (test code = [...] 2219) 23 U/L Delfino OrtaHEPATITIS C REFLEX [id number] 00:00:00* Test Item Value Reference Range Interpretation Comme nts HEPATITIS C ANTIBODY (test c ode = 4675) NON-REACTIVE Delfino Schumacher YouCBC W/AUTO [id number] 00:00:00* Test Item Value Reference Range Interpretation [...] code = 1016) (NOTE) Delfino OrtaCOMPREHENSIVE METABOLIC [id number] 00:00:00* Test Item Value Reference Range Interpretation Comme nts GLUCOSE (test code = 2217) 92 MG/DL BUN (test code = 2208) 23 MG/DL CREATININE (test code = 2214) 1.27 MG/DL eGFR AMER. (test cod e = 65146) 55 ML/MIN/1.73 eGFR NON- AMER. (test code = 96836) 48 ML/MIN/1.73 CALC BUN/CREAT (test code = [...] 23 U/L Delfino F AustinHEPATITIS C REFLEX [id number] 00:00:00* Test Item Value Reference Range Interpretation Comme nts HEPATITIS C ANTIBODY (test c ode = 4614) NON-REACTIVE Delfino OrtaCBC W/AUTO [id number] 00:00:00* Test Item Value Reference Range Interpretation [...] code = 1016) (NOTE) Delfino OrtaCOMPREHENSIVE METABOLIC [id number] 00:00:00* Test Item Value Reference Range Interpretation Comme nts GLUCOSE (test code = 2217) 92 MG/DL BUN (test code = 2208) 23 MG/DL CREATININE (test code = 2214) 1.27 MG/DL eGFR AMER. (test cod e = 92840) 55 ML/MIN/1.73 eGFR NON- AMER. (test code = 31067) 48 ML/MIN/1.73 CALC BUN/CREAT (test code = [...] 2219) 23 U/L Delfino OrtaHEPATITIS C REFLEX [id number] 00:00:00* Test Item Value Reference Range Interpretation Comme nts HEPATITIS C ANTIBODY (test c ode = 4675) NON-REACTIVE Delfino OrtaCBC W/AUTO [id number] 00:00:00* Test Item Value Reference Range Interpretation [...] code = 1016) (NOTE) Delfino OrtaCOMPREHENSIVE METABOLIC [id number] 00:00:00* Test Item Value Reference Range Interpretation Comme nts GLUCOSE (test code = 2217) 92 MG/DL BUN (test code = 2208) 23 MG/DL CREATININE (test code = 2214) 1.27 MG/DL eGFR AMER. (test cod e = 64183) 55 ML/MIN/1.73 eGFR NON- AMER. (test code = 73051) 48 ML/MIN/1.73 CALC BUN/CREAT (test code = [...] 2219) 23 U/L Delfino OrtaHEPATITIS C REFLEX [id number] 00:00:00* Test Item Value Reference Range Interpretation Comme nts HEPATITIS C ANTIBODY (test c ode = 4675) NON-REACTIVE Delfino OrtaCBC W/AUTO [id number] 00:00:00* Test Item Value Reference Range Interpretation [...] code = 1016) (NOTE) Delfino OrtaCOMPREHENSIVE METABOLIC [id number] 00:00:00* Test Item Value Reference Range Interpretation Comme nts GLUCOSE (test code = 2217) 92 MG/DL BUN (test code = 2208) 23 MG/DL CREATININE (test code = 2214) 1.27 MG/DL eGFR AMER. (test cod e = 72043) 55 ML/MIN/1.73 eGFR NON- AMER. (test code = 37538) 48 ML/MIN/1.73 CALC BUN/CREAT (test code = [...] 2219) 23 U/L Delfino OrtaHEPATITIS C REFLEX [id number] 00:00:00* Test Item Value Reference Range Interpretation Comme nts HEPATITIS C ANTIBODY (test c ode = 4675) NON-REACTIVE Delfino OrtaCBC W/AUTO [id number] 00:00:00* Test Item Value Reference Range Interpretation [...] code = 1016) (NOTE) Delfino OrtaCOMPREHENSIVE METABOLIC [id number] 00:00:00* Test Item Value Reference Range Interpretation Comme nts GLUCOSE (test code = 2217) 92 MG/DL BUN (test code = 2208) 23 MG/DL CREATININE (test code = 2214) 1.27 MG/DL eGFR AMER. (test cod e = 60247) 55 ML/MIN/1.73 eGFR NON- AMER. (test code = 75606) 48 ML/MIN/1.73 CALC BUN/CREAT (test code = [...] 2219) 23 U/L Delfino OrtaHEPATITIS C REFLEX [id number] 00:00:00* Test Item Value Reference Range Interpretation Comme nts HEPATITIS C ANTIBODY (test c ode = 4675) NON-REACTIVE Delfino OrtaCBC W/AUTO [id number] 00:00:00* Test Item Value Reference Range Interpretation [...] code = 1016) (NOTE) Delfino OrtaCOMPREHENSIVE METABOLIC [id number] 00:00:00* Test Item Value Reference Range Interpretation Comme nts GLUCOSE (test code = 2217) 92 MG/DL BUN (test code = 2208) 23 MG/DL CREATININE (test code = 2214) 1.27 MG/DL eGFR AMER. (test cod e = 02444) 55 ML/MIN/1.73 eGFR NON- AMER. (test code = 85086) 48 ML/MIN/1.73 CALC BUN/CREAT (test code = [...] 2219) 23 U/L Delfino OrtaHEPATITIS C REFLEX [id number] 00:00:00* Test Item Value Reference Range Interpretation Comme nts HEPATITIS C ANTIBODY (test c ode = 4675) NON-REACTIVE Delfino OrtaCBC W/AUTO [id number] 00:00:00* Test Item Value Reference Range Interpretation [...] code = 1016) (NOTE) Delfino OrtaCOMPREHENSIVE METABOLIC [id number] 00:00:00* Test Item Value Reference Range Interpretation Comme nts GLUCOSE (test code = 2217) 92 MG/DL BUN (test code = 2208) 23 MG/DL CREATININE (test code = 2214) 1.27 MG/DL eGFR AMER. (test cod e = 46004) 55 ML/MIN/1.73 eGFR NON- AMER. (test code = 09432) 48 ML/MIN/1.73 CALC BUN/CREAT (test code = [...] 2219) 23 U/L Delfino OrtaHEPATITIS C REFLEX [id number] 00:00:00* Test Item Value Reference Range Interpretation Comme nts HEPATITIS C ANTIBODY (test c ode = 4675) NON-REACTIVE Delfino OrtaCBC W/AUTO [id number] 00:00:00* Test Item Value Reference Range Interpretation [...] code = 1016) (NOTE) Delfino OrtaCOMPREHENSIVE METABOLIC [id number] 00:00:00* Test Item Value Reference Range Interpretation Comme nts GLUCOSE (test code = 2217) 92 MG/DL BUN (test code = 2208) 23 MG/DL CREATININE (test code = 2214) 1.27 MG/DL eGFR AMER. (test cod e = 11056) 55 ML/MIN/1.73 eGFR NON- AMER. (test code = 02879) 48 ML/MIN/1.73 CALC BUN/CREAT (test code = [...] 2219) 23 U/L Delfino OrtaHEPATITIS C REFLEX [id number] 00:00:00* Test Item Value Reference Range Interpretation Comme nts HEPATITIS C ANTIBODY (test c ode = 4659) NON-REACTIVE Delfino OrtaCBC W/AUTO [id number] 00:00:00* Test Item Value Reference Range Interpretation [...] code = 1016) (NOTE) Delfino OrtaLIONC W/AUTO [id number] 00:00:00* Test Item Value Reference Range Interpretation [...] code = 1016) (NOTE) Delfino OrtaCOMPREHENSIVE METABOLIC [id number] 00:00:00* Test Item Value Reference Range Interpretation Comme nts GLUCOSE (test code = 2217) 92 MG/DL BUN (test code = 2208) 23 MG/DL CREATININE (test code = 2214) 1.27 MG/DL eGFR AMER. (test cod e = 92099) 55 ML/MIN/1.73 eGFR NON- AMER. (test code = 79670) 48 ML/MIN/1.73 CALC BUN/CREAT (test code = [...] (test code = 2219) 23 U/L [facility] [id number] 00:00:00* Test Item Value Reference Range Interpretation [...] (test code = 1016) (NOTE) COMPREHENSIVE METABOLIC [id number] 00:00:00* Test Item Value Reference Range Interpretation Comme nts GLUCOSE (test code = 2217) 92 MG/DL BUN (test code = 2208) 23 MG/DL CREATININE (test code = 2214) 1.27 MG/DL eGFR AMER. (test cod e = 62575) 55 ML/MIN/1.73 eGFR NON- AMER. (test code = 29926) 48 ML/MIN/1.73 CALC BUN/CREAT (test code = [...] ALT (test code = 2219) 23 U/L LIPID [id number] 00:00:00* Test Item Value Reference Range Interpretation Comme nts CHOLESTEROL (test code = 2210) 211 MG/DL TRIGLYCERIDES (test code = 2232) 52 MG/DL HDL CHOLESTEROL (test code = 2220) 90 MG/DL CALC LDL CHOL (test code = 2237) 111 MG/DL RISK RATIO LDL/HDL (test cod e = 2238) 1.23 RATIO CBC W/AUTO [id number] 00:00:00* Test Item Value Reference Range Interpretation [...] (test code = 1016) (NOTE) COMPREHENSIVE METABOLIC [id number] 00:00:00* Test Item Value Reference Range Interpretation Comme nts GLUCOSE (test code = 2217) 88 MG/DL BUN (test code = 2208) 24 MG/DL CREATININE (test code = 2214) 0.94 MG/DL eGFR AMER. (test cod e = 62058) 80 ML/MIN/1.73 eGFR NON- AMER. (test code = 73766) 69 ML/MIN/1.73 CALC BUN/CREAT (test code = [...] (test code = 2219) 10 U/L LIPID [id number] 00:00:00* Test Item Value Reference Range Interpretation Comme nts CHOLESTEROL (test code = 2210) 211 MG/DL TRIGLYCERIDES (test code = 2232) 52 MG/DL HDL CHOLESTEROL (test code = 2220) 90 MG/DL CALC LDL CHOL (test code = 2237) 111 MG/DL RISK RATIO LDL/HDL (test cod e = 2238) 1.23 RATIO CBC W/AUTO [id number] 00:00:00* Test Item Value Reference Range Interpretation [...] (test code = 1016) (NOTE) COMPREHENSIVE METABOLIC [id number] 00:00:00* Test Item Value Reference Range Interpretation Comme nts GLUCOSE (test code = 2217) 88 MG/DL BUN (test code = 2208) 24 MG/DL CREATININE (test code = 2214) 0.94 MG/DL eGFR AMER. (test cod e = 32702) 80 ML/MIN/1.73 eGFR NON- AMER. (test code = 66987) 69 ML/MIN/1.73 CALC BUN/CREAT (test code = [...] (test code = 2219) 10 U/L LIPID [id number] 00:00:00* Test Item Value Reference Range Interpretation Comme nts CHOLESTEROL (test code = 2210) 211 MG/DL TRIGLYCERIDES (test code = 2232) 52 MG/DL HDL CHOLESTEROL (test code = 2220) 90 MG/DL CALC LDL CHOL (test code = 2237) 111 MG/DL RISK RATIO LDL/HDL (test cod e = 2238) 1.23 RATIO CBC W/AUTO [id number] 00:00:00* Test Item Value Reference Range Interpretation [...] (test code = 1016) (NOTE) COMPREHENSIVE METABOLIC [id number] 00:00:00* Test Item Value Reference Range Interpretation Comme nts GLUCOSE (test code = 2217) 88 MG/DL BUN (test code = 2208) 24 MG/DL CREATININE (test code = 2214) 0.94 MG/DL eGFR AMER. (test cod e = 41133) 80 ML/MIN/1.73 eGFR NON- AMER. (test code = 17512) 69 ML/MIN/1.73 CALC BUN/CREAT (test code = [...] (test code = 2219) 10 U/L LIPID [id number] 00:00:00* Test Item Value Reference Range Interpretation Comme nts CHOLESTEROL (test code = 2210) 211 MG/DL TRIGLYCERIDES (test code = 2232) 52 MG/DL HDL CHOLESTEROL (test code = 2220) 90 MG/DL CALC LDL CHOL (test code = 2237) 111 MG/DL RISK RATIO LDL/HDL (test cod e = 2238) 1.23 RATIO COMPREHENSIVE METABOLIC [id number] 00:00:00* Test Item Value Reference Range Interpretation Comme nts GLUCOSE (test code = 2217) 88 MG/DL BUN (test code = 2208) 24 MG/DL CREATININE (test code = 2214) 0.94 MG/DL eGFR AMER. (test cod e = 24527) 80 ML/MIN/1.73 eGFR NON- AMER. (test code = 88890) 69 ML/MIN/1.73 CALC BUN/CREAT (test code = [...] = 2219) 10 U/L Delfino F AustinLIPID [id number] 00:00:00* Test Item Value Reference Range Interpretation Comme nts CHOLESTEROL (test code = 2210) 211 MG/DL TRIGLYCERIDES (test code = 2232) 52 MG/DL HDL CHOLESTEROL (test code = 2220) 90 MG/DL CALC LDL CHOL (test code = 2237) 111 MG/DL RISK RATIO LDL/HDL (test cod e = 2238) 1.23 RATIO Delfino Schumacher [facility] W/AUTO [id number] 00:00:00* Test Item Value Reference Range Interpretation [...] (test code = 1016) (NOTE) Delfino Schumacher [facility] W/AUTO [id number] 00:00:00* Test Item Value Reference Range Interpretation [...] code = 1016) (NOTE) Delfino OrtaCOMPREHENSIVE METABOLIC [id number] 00:00:00* Test Item Value Reference Range Interpretation Comme nts GLUCOSE (test code = 2217) 88 MG/DL BUN (test code = 2208) 24 MG/DL CREATININE (test code = 2214) 0.94 MG/DL eGFR AMER. (test cod e = 00884) 80 ML/MIN/1.73 eGFR NON- AMER. (test code = 44762) 69 ML/MIN/1.73 CALC BUN/CREAT (test code = [...] code = 2219) 10 U/L Delfino OrtaLIPID [id number] 00:00:00* Test Item Value Reference Range Interpretation Comme nts CHOLESTEROL (test code = 2210) 211 MG/DL TRIGLYCERIDES (test code = 2232) 52 MG/DL HDL CHOLESTEROL (test code = 2220) 90 MG/DL CALC LDL CHOL (test code = 2237) 111 MG/DL RISK RATIO LDL/HDL (test cod e = 2238) 1.23 RATIO Delfino OrtaCBC W/AUTO [id number] 00:00:00* Test Item Value Reference Range Interpretation [...] code = 1016) (NOTE) Delfino OrtaCOMPREHENSIVE METABOLIC [id number] 00:00:00* Test Item Value Reference Range Interpretation Comme nts GLUCOSE (test code = 2217) 88 MG/DL BUN (test code = 2208) 24 MG/DL CREATININE (test code = 2214) 0.94 MG/DL eGFR AMER. (test cod e = 62693) 80 ML/MIN/1.73 eGFR NON- AMER. (test code = 90482) 69 ML/MIN/1.73 CALC BUN/CREAT (test code = [...] code = 2219) 10 U/L Delfino OrtaLIPID [id number] 00:00:00* Test Item Value Reference Range Interpretation Comme nts CHOLESTEROL (test code = 2210) 211 MG/DL TRIGLYCERIDES (test code = 2232) 52 MG/DL HDL CHOLESTEROL (test code = 2220) 90 MG/DL CALC LDL CHOL (test code = 2237) 111 MG/DL RISK RATIO LDL/HDL (test cod e = 2238) 1.23 RATIO Delfino OrtaCBC W/AUTO [id number] 00:00:00* Test Item Value Reference Range Interpretation [...] code = 1016) (NOTE) Delfino OrtaCOMPREHENSIVE METABOLIC [id number] 00:00:00* Test Item Value Reference Range Interpretation Comme nts GLUCOSE (test code = 2217) 88 MG/DL BUN (test code = 2208) 24 MG/DL CREATININE (test code = 2214) 0.94 MG/DL eGFR AMER. (test cod e = 20350) 80 ML/MIN/1.73 eGFR NON- AMER. (test code = 88667) 69 ML/MIN/1.73 CALC BUN/CREAT (test code = [...] code = 2219) 10 U/L Delfino OrtaLIPID [id number] 00:00:00* Test Item Value Reference Range Interpretation Comme nts CHOLESTEROL (test code = 2210) 211 MG/DL TRIGLYCERIDES (test code = 2232) 52 MG/DL HDL CHOLESTEROL (test code = 2220) 90 MG/DL CALC LDL CHOL (test code = 2237) 111 MG/DL RISK RATIO LDL/HDL (test cod e = 2238) 1.23 RATIO Delfino OrtaCOMPREHENSIVE METABOLIC [id number] 00:00:00* Test Item Value Reference Range Interpretation Comme nts GLUCOSE (test code = 2217) 88 MG/DL BUN (test code = 2208) 24 MG/DL CREATININE (test code = 2214) 0.94 MG/DL eGFR AMER. (test cod e = 78155) 80 ML/MIN/1.73 eGFR NON- AMER. (test code = 62180) 69 ML/MIN/1.73 CALC BUN/CREAT (test code = [...] = 2219) 10 U/L Delfino Schumacher AustinLIPID [id number] 00:00:00* Test Item Value Reference Range Interpretation Comme nts CHOLESTEROL (test code = 2210) 211 MG/DL TRIGLYCERIDES (test code = 2232) 52 MG/DL HDL CHOLESTEROL (test code = 2220) 90 MG/DL CALC LDL CHOL (test code = 2237) 111 MG/DL RISK RATIO LDL/HDL (test cod e = 2238) 1.23 RATIO Delfino OrtaCBC W/AUTO [id number] 00:00:00* Test Item Value Reference Range Interpretation [...] = 1016) (NOTE) Delfino Schumacher YouCOMPREHENSIVE METABOLIC [id number] 00:00:00* Test Item Value Reference Range Interpretation Comme nts GLUCOSE (test code = 2217) 88 MG/DL BUN (test code = 2208) 24 MG/DL CREATININE (test code = 2214) 0.94 MG/DL eGFR AMER. (test cod e = 96007) 80 ML/MIN/1.73 eGFR NON- AMER. (test code = 56183) 69 ML/MIN/1.73 CALC BUN/CREAT (test code = [...] code = 2219) 10 U/L Delfino OrtaLIPID [id number] 00:00:00* Test Item Value Reference Range Interpretation Comme nts CHOLESTEROL (test code = 2210) 211 MG/DL TRIGLYCERIDES (test code = 2232) 52 MG/DL HDL CHOLESTEROL (test code = 2220) 90 MG/DL CALC LDL CHOL (test code = 2237) 111 MG/DL RISK RATIO LDL/HDL (test cod e = 2238) 1.23 RATIO Delfino OrtaCBC W/AUTO [id number] 00:00:00* Test Item Value Reference Range Interpretation [...] code = 1016) (NOTE) Delfino OrtaCOMPREHENSIVE METABOLIC [id number] 00:00:00* Test Item Value Reference Range Interpretation Comme nts GLUCOSE (test code = 2217) 88 MG/DL BUN (test code = 2208) 24 MG/DL CREATININE (test code = 2214) 0.94 MG/DL eGFR AMER. (test cod e = 38387) 80 ML/MIN/1.73 eGFR NON- AMER. (test code = 68709) 69 ML/MIN/1.73 CALC BUN/CREAT (test code = [...] code = 2219) 10 U/L Delfino Schumacher KinmundyLIPID [id number] 00:00:00* Test Item Value Reference Range Interpretation Comme nts CHOLESTEROL (test code = 2210) 211 MG/DL TRIGLYCERIDES (test code = 2232) 52 MG/DL HDL CHOLESTEROL (test code = 2220) 90 MG/DL CALC LDL CHOL (test code = 2237) 111 MG/DL RISK RATIO LDL/HDL (test cod e = 2238) 1.23 RATIO Delfino OrtaCBC W/AUTO [id number] 00:00:00* Test Item Value Reference Range Interpretation [...] code = 1016) (NOTE) Delfino OrtaCOMPREHENSIVE METABOLIC [id number] 00:00:00* Test Item Value Reference Range Interpretation Comme nts GLUCOSE (test code = 2217) 88 MG/DL BUN (test code = 2208) 24 MG/DL CREATININE (test code = 2214) 0.94 MG/DL eGFR AMER. (test cod e = 57255) 80 ML/MIN/1.73 eGFR NON- AMER. (test code = 36424) 69 ML/MIN/1.73 CALC BUN/CREAT (test code = [...] code = 2219) 10 U/L Delfino OrtaLIPID [id number] 00:00:00* Test Item Value Reference Range Interpretation Comme nts CHOLESTEROL (test code = 2210) 211 MG/DL TRIGLYCERIDES (test code = 2232) 52 MG/DL HDL CHOLESTEROL (test code = 2220) 90 MG/DL CALC LDL CHOL (test code = 2237) 111 MG/DL RISK RATIO LDL/HDL (test cod e = 2238) 1.23 RATIO Delfino OrtaCBC W/AUTO [id number] 00:00:00* Test Item Value Reference Range Interpretation [...] code = 1016) (NOTE) Delfino OrtaCOMPREHENSIVE METABOLIC [id number] 00:00:00* Test Item Value Reference Range Interpretation Comme nts GLUCOSE (test code = 2217) 88 MG/DL BUN (test code = 2208) 24 MG/DL CREATININE (test code = 2214) 0.94 MG/DL eGFR AMER. (test cod e = 41107) 80 ML/MIN/1.73 eGFR NON- AMER. (test code = 44823) 69 ML/MIN/1.73 CALC BUN/CREAT (test code = [...] code = 2219) 10 U/L Delfino OrtaLIPID [id number] 00:00:00* Test Item Value Reference Range Interpretation Comme nts CHOLESTEROL (test code = 2210) 211 MG/DL TRIGLYCERIDES (test code = 2232) 52 MG/DL HDL CHOLESTEROL (test code = 2220) 90 MG/DL CALC LDL CHOL (test code = 2237) 111 MG/DL RISK RATIO LDL/HDL (test cod e = 2238) 1.23 RATIO Delfino OrtaCBC W/AUTO [id number] 00:00:00* Test Item Value Reference Range Interpretation [...] code = 1016) (NOTE) Delfino OrtaCOMPREHENSIVE METABOLIC [id number] 00:00:00* Test Item Value Reference Range Interpretation Comme nts GLUCOSE (test code = 2217) 88 MG/DL BUN (test code = 2208) 24 MG/DL CREATININE (test code = 2214) 0.94 MG/DL eGFR AMER. (test cod e = 05837) 80 ML/MIN/1.73 eGFR NON- AMER. (test code = 31921) 69 ML/MIN/1.73 CALC BUN/CREAT (test code = [...] code = 2219) 10 U/L Delfino OrtaLIPID [id number] 00:00:00* Test Item Value Reference Range Interpretation Comme nts CHOLESTEROL (test code = 2210) 211 MG/DL TRIGLYCERIDES (test code = 2232) 52 MG/DL HDL CHOLESTEROL (test code = 2220) 90 MG/DL CALC LDL CHOL (test code = 2237) 111 MG/DL RISK RATIO LDL/HDL (test cod e = 2238) 1.23 RATIO Delfino OrtaCBC W/AUTO [id number] 00:00:00* Test Item Value Reference Range Interpretation [...] code = 1016) (NOTE) Delfino OrtaCOMPREHENSIVE METABOLIC [id number] 00:00:00* Test Item Value Reference Range Interpretation Comme nts GLUCOSE (test code = 2217) 88 MG/DL BUN (test code = 2208) 24 MG/DL CREATININE (test code = 2214) 0.94 MG/DL eGFR AMER. (test cod e = 31023) 80 ML/MIN/1.73 eGFR NON- AMER. (test code = 32537) 69 ML/MIN/1.73 CALC BUN/CREAT (test code = [...] code = 2219) 10 U/L Delfino OrtaLIPID [id number] 00:00:00* Test Item Value Reference Range Interpretation Comme nts CHOLESTEROL (test code = 2210) 211 MG/DL TRIGLYCERIDES (test code = 2232) 52 MG/DL HDL CHOLESTEROL (test code = 2220) 90 MG/DL CALC LDL CHOL (test code = 2237) 111 MG/DL RISK RATIO LDL/HDL (test cod e = 2238) 1.23 RATIO Delfino OrtaCBC W/AUTO [id number] 00:00:00* Test Item Value Reference Range Interpretation [...] code = 1016) (NOTE) Delfino OrtaCOMPREHENSIVE METABOLIC [id number] 00:00:00* Test Item Value Reference Range Interpretation Comme nts GLUCOSE (test code = 2217) 88 MG/DL BUN (test code = 2208) 24 MG/DL CREATININE (test code = 2214) 0.94 MG/DL eGFR AMER. (test cod e = 12166) 80 ML/MIN/1.73 eGFR NON- AMER. (test code = 89737) 69 ML/MIN/1.73 CALC BUN/CREAT (test code = [...] code = 2219) 10 U/L Delfino OrtaLIPID [id number] 00:00:00* Test Item Value Reference Range Interpretation Comme nts CHOLESTEROL (test code = 2210) 211 MG/DL TRIGLYCERIDES (test code = 2232) 52 MG/DL HDL CHOLESTEROL (test code = 2220) 90 MG/DL CALC LDL CHOL (test code = 2237) 111 MG/DL RISK RATIO LDL/HDL (test cod e = 2238) 1.23 RATIO Delfino OrtaCBC W/AUTO [id number] 00:00:00* Test Item Value Reference Range Interpretation [...] code = 1016) (NOTE) Delfino OrtaCOMPREHENSIVE METABOLIC [id number] 00:00:00* Test Item Value Reference Range Interpretation Comme nts GLUCOSE (test code = 2217) 88 MG/DL BUN (test code = 2208) 24 MG/DL CREATININE (test code = 2214) 0.94 MG/DL eGFR AMER. (test cod e = 78496) 80 ML/MIN/1.73 eGFR NON- AMER. (test code = 43542) 69 ML/MIN/1.73 CALC BUN/CREAT (test code = [...] code = 2219) 10 U/L Delfino OrtaLIPID [id number] 00:00:00* Test Item Value Reference Range Interpretation Comme nts CHOLESTEROL (test code = 2210) 211 MG/DL TRIGLYCERIDES (test code = 2232) 52 MG/DL HDL CHOLESTEROL (test code = 2220) 90 MG/DL CALC LDL CHOL (test code = 2237) 111 MG/DL RISK RATIO LDL/HDL (test cod e = 2238) 1.23 RATIO Delfino OrtaCBC W/AUTO [id number] 00:00:00* Test Item Value Reference Range Interpretation [...] K/UL COMMENTS (test code = 1016) (NOTE) Delifno Schumacher YouCOMPREHENSIVE METABOLIC [id number] 00:00:00* Test Item Value Reference Range Interpretation Comme nts GLUCOSE (test code = 2217) 88 MG/DL BUN (test code = 2208) 24 MG/DL CREATININE (test code = 2214) 0.94 MG/DL eGFR AMER. (test cod e = 41957) 80 ML/MIN/1.73 eGFR NON- AMER. (test code = 28848) 69 ML/MIN/1.73 CALC BUN/CREAT (test code = [...] code = 2219) 10 U/L Delfino OrtaLIPID [id number] 00:00:00* Test Item Value Reference Range Interpretation Comme nts CHOLESTEROL (test code = 2210) 211 MG/DL TRIGLYCERIDES (test code = 2232) 52 MG/DL HDL CHOLESTEROL (test code = 2220) 90 MG/DL CALC LDL CHOL (test code = 2237) 111 MG/DL RISK RATIO LDL/HDL (test cod e = 2238) 1.23 RATIO Delfino OrtaCBC W/AUTO [id number] 00:00:00* Test Item Value Reference Range Interpretation [...] code = 1016) (NOTE) Delfino OrtaCOMPREHENSIVE METABOLIC [id number] 00:00:00* Test Item Value Reference Range Interpretation Comme nts GLUCOSE (test code = 2217) 88 MG/DL BUN (test code = 2208) 24 MG/DL CREATININE (test code = 2214) 0.94 MG/DL eGFR AMER. (test cod e = 97762) 80 ML/MIN/1.73 eGFR NON- AMER. (test code = 47010) 69 ML/MIN/1.73 CALC BUN/CREAT (test [...] code = 2219) 10 U/L Delfino OrtaLIPID [id number] 00:00:00* Test Item Value Reference Range Interpretation Comme nts CHOLESTEROL (test code = 2210) 211 MG/DL TRIGLYCERIDES (test code = 2232) 52 MG/DL HDL CHOLESTEROL (test code = 2220) 90 MG/DL CALC LDL CHOL (test code = 2237) 111 MG/DL RISK RATIO LDL/HDL (test cod e = 2238) 1.23 RATIO Delfino OrtaCBC W/AUTO [id number] 00:00:00* Test Item Value Reference Range Interpretation [...] = 1016) (NOTE) Delfino Schumacher YouCOMPREHENSIVE METABOLIC [id number] 00:00:00* Test Item Value Reference Range Interpretation Comme nts GLUCOSE (test code = 2217) 88 MG/DL BUN (test code = 2208) 24 MG/DL CREATININE (test code = 2214) 0.94 MG/DL eGFR AMER. (test cod e = ) 80 ML/MIN/1.73 eGFR NON- AMER. (test code = 83952) 69 ML/MIN/1.73 CALC BUN/CREAT (test code = 2235) 26 RATIO SODIUM (test code = 2231) 142 MEQ/L POTASSIUM (test code = 2228) 4.0 MEQ/L CHLORIDE (test code = 2215) 107 MEQ/L CARBON DIOXIDE (test code = 2206) 24 MEQ/L CALCIUM (test code = 2209) 9.5 MG/DL PROTEIN, TOTAL (test code = 222) 9.9 G/DL ALBUMIN (test code = 2201) 3.7 G/DL CALC GLOBULIN (test code = 2240) 6.2 G/DL CALC A/G RATIO (test code = 2234) 0.6 RATIO BILIRUBIN, TOTAL (test code = 2207) 0.3 MG/DL ALKALINE PHOSPHATASE (test code = 2204) 89 U/L AST (test code = 2218) 18 U/L ALT (test code = 2219) 10 U/L Delfino OrtaLIPID [id number] 00:00:00* Test Item Value Reference Range Interpretation Comme nts CHOLESTEROL (test code = 2210) 211 MG/DL TRIGLYCERIDES (test code = 2232) 52 MG/DL HDL CHOLESTEROL (test code = 2220) 90 MG/DL CALC LDL CHOL (test code = 2237) 111 MG/DL RISK RATIO LDL/HDL (test cod e = 2238) 1.23 RATIO Delfino OrtaCBC W/AUTO [id number] 00:00:00* Test Item Value Reference Range Interpretation [...] code = 1016) (NOTE) Delfino OrtaCOMPREHENSIVE METABOLIC [id number] 00:00:00* Test Item Value Reference Range Interpretation Comme nts GLUCOSE (test code = 2217) 88 MG/DL BUN (test code = 2208) 24 MG/DL CREATININE (test code = 2214) 0.94 MG/DL eGFR AMER. (test cod e = 42890) 80 ML/MIN/1.73 eGFR NON- AMER. (test code = 20409) 69 ML/MIN/1.73 CALC BUN/CREAT (test code = [...] code = 2219) 10 U/L Delfino OrtaLIPID [id number] 00:00:00* Test Item Value Reference Range Interpretation Comme nts CHOLESTEROL (test code = 2210) 211 MG/DL TRIGLYCERIDES (test code = 2232) 52 MG/DL HDL CHOLESTEROL (test code = 2220) 90 MG/DL CALC LDL CHOL (test code = 2237) 111 MG/DL RISK RATIO LDL/HDL (test cod e = 2238) 1.23 RATIO Delfino OrtaCBC W/AUTO [id number] 00:00:00* Test Item Value Reference Range Interpretation [...] = 1016) (NOTE) Delfino Schumacher YouCOMPREHENSIVE METABOLIC [id number] 00:00:00* Test Item Value Reference Range Interpretation Comme nts GLUCOSE (test code = 2217) 88 MG/DL BUN (test code = 2208) 24 MG/DL CREATININE (test code = 2214) 0.94 MG/DL eGFR AMER. (test cod e = 64020) 80 ML/MIN/1.73 eGFR NON- AMER. (test code = 81665) 69 ML/MIN/1.73 CALC BUN/CREAT (test code = [...] code = 2219) 10 U/L Delfino OrtaLIPID [id number] 00:00:00* Test Item Value Reference Range Interpretation Comme nts CHOLESTEROL (test code = 2210) 211 MG/DL TRIGLYCERIDES (test code = 2232) 52 MG/DL HDL CHOLESTEROL (test code = 2220) 90 MG/DL CALC LDL CHOL (test code = 2237) 111 MG/DL RISK RATIO LDL/HDL (test cod e = 2238) 1.23 RATIO Delfino OrtaCBC W/AUTO [id number] 00:00:00* Test Item Value Reference Range Interpretation [...] code = 1016) (NOTE) Delfino OrtaCOMPREHENSIVE METABOLIC [id number] 00:00:00* Test Item Value Reference Range Interpretation Comme nts GLUCOSE (test code = 2217) 88 MG/DL BUN (test code = 2208) 24 MG/DL CREATININE (test code = 2214) 0.94 MG/DL eGFR AMER. (test cod e = 41665) 80 ML/MIN/1.73 eGFR NON- AMER. (test code = 41776) 69 ML/MIN/1.73 CALC BUN/CREAT (test code = [...] code = 2219) 10 U/L Delfino OrtaLIPID [id number] 00:00:00* Test Item Value Reference Range Interpretation Comme nts CHOLESTEROL (test code = 2210) 211 MG/DL TRIGLYCERIDES (test code = 2232) 52 MG/DL HDL CHOLESTEROL (test code = 2220) 90 MG/DL CALC LDL CHOL (test code = 2237) 111 MG/DL RISK RATIO LDL/HDL (test cod e = 2238) 1.23 RATIO Delfino OrtaCBC W/AUTO [id number] 00:00:00* Test Item Value Reference Range Interpretation [...] = 1016) (NOTE) Delfino Schumacher YouCOMPREHENSIVE METABOLIC [id number] 00:00:00* Test Item Value Reference Range Interpretation Comme nts GLUCOSE (test code = 2217) 88 MG/DL BUN (test code = 2208) 24 MG/DL CREATININE (test code = 2214) 0.94 MG/DL eGFR AMER. (test cod e = 36483) 80 ML/MIN/1.73 eGFR NON- AMER. (test code = 95647) 69 ML/MIN/1.73 CALC BUN/CREAT (test code = [...] code = 2219) 10 U/L Delfino OrtaLIPID [id number] 00:00:00* Test Item Value Reference Range Interpretation Comme nts CHOLESTEROL (test code = 2210) 211 MG/DL TRIGLYCERIDES (test code = 2232) 52 MG/DL HDL CHOLESTEROL (test code = 2220) 90 MG/DL CALC LDL CHOL (test code = 2237) 111 MG/DL RISK RATIO LDL/HDL (test cod e = 2238) 1.23 RATIO Delfino OrtaCBC W/AUTO [id number] 00:00:00* Test Item Value Reference Range Interpretation [...] code = 1016) (NOTE) Delfino OrtaCOMPREHENSIVE METABOLIC [id number] 00:00:00* Test Item Value Reference Range Interpretation Comme nts GLUCOSE (test code = 2217) 88 MG/DL BUN (test code = 2208) 24 MG/DL CREATININE (test code = 2214) 0.94 MG/DL eGFR AMER. (test cod e = 68709) 80 ML/MIN/1.73 eGFR NON- AMER. (test code = 92007) 69 ML/MIN/1.73 CALC BUN/CREAT (test code = [...] code = 2219) 10 U/L Delfino OrtaLIPID [id number] 00:00:00* Test Item Value Reference Range Interpretation Comme nts CHOLESTEROL (test code = 2210) 211 MG/DL TRIGLYCERIDES (test code = 2232) 52 MG/DL HDL CHOLESTEROL (test code = 2220) 90 MG/DL CALC LDL CHOL (test code = 2237) 111 MG/DL RISK RATIO LDL/HDL (test cod e = 2238) 1.23 RATIO Delfino OrtaCBC W/AUTO [id number] 00:00:00* Test Item Value Reference Range Interpretation [...] = 1016) (NOTE) Delfino Endy YouCOMPREHENSIVE METABOLIC [id number] 00:00:00* Test Item Value Reference Range Interpretation Comme nts GLUCOSE (test code = 2217) 88 MG/DL BUN (test code = 2208) 24 MG/DL CREATININE (test code = 2214) 0.94 MG/DL eGFR AMER. (test cod e = 65603) 80 ML/MIN/1.73 eGFR NON- AMER. (test code = 95839) 69 ML/MIN/1.73 CALC BUN/CREAT (test code = [...] = 2219) 10 U/L Delfino Schumacher YouLIPID [id number] 00:00:00* Test Item Value Reference Range Interpretation Comme nts CHOLESTEROL (test code = 2210) 211 MG/DL TRIGLYCERIDES (test code = 2232) 52 MG/DL HDL CHOLESTEROL (test code = 2220) 90 MG/DL CALC LDL CHOL (test code = 2237) 111 MG/DL RISK RATIO LDL/HDL (test cod e = 2238) 1.23 RATIO Delfino OrtaCBC W/AUTO [id number] 00:00:00* Test Item Value Reference Range Interpretation [...] = 1016) (NOTE) Delfino Schumacher YouCOMPREHENSIVE METABOLIC [id number] 00:00:00* Test Item Value Reference Range Interpretation Comme nts GLUCOSE (test code = 2217) 88 MG/DL BUN (test code = 2208) 24 MG/DL CREATININE (test code = 2214) 0.94 MG/DL eGFR AMER. (test cod e = 06865) 80 ML/MIN/1.73 eGFR NON- AMER. (test code = 25121) 69 ML/MIN/1.73 CALC BUN/CREAT (test code = [...] code = 2219) 10 U/L Delfino OrtaLIPID [id number] 00:00:00* Test Item Value Reference Range Interpretation Comme nts CHOLESTEROL (test code = 2210) 211 MG/DL TRIGLYCERIDES (test code = 2232) 52 MG/DL HDL CHOLESTEROL (test code = 2220) 90 MG/DL CALC LDL CHOL (test code = 2237) 111 MG/DL RISK RATIO LDL/HDL (test cod e = 2238) 1.23 RATIO Delfino OrtaCBC W/AUTO [id number] 00:00:00* Test Item Value Reference Range Interpretation [...] code = 1016) (NOTE) Delfino OrtaCOMPREHENSIVE METABOLIC [id number] 00:00:00* Test Item Value Reference Range Interpretation Comme nts GLUCOSE (test code = 2217) 88 MG/DL BUN (test code = 2208) 24 MG/DL CREATININE (test code = 2214) 0.94 MG/DL eGFR AMER. (test cod e = 66841) 80 ML/MIN/1.73 eGFR NON- AMER. (test code = 35372) 69 ML/MIN/1.73 CALC BUN/CREAT (test code = [...] code = 2219) 10 U/L Delfino OrtaLIPID [id number] 00:00:00* Test Item Value Reference Range Interpretation Comme nts CHOLESTEROL (test code = 2210) 211 MG/DL TRIGLYCERIDES (test code = 2232) 52 MG/DL HDL CHOLESTEROL (test code = 2220) 90 MG/DL CALC LDL CHOL (test code = 2237) 111 MG/DL RISK RATIO LDL/HDL (test cod e = 2238) 1.23 RATIO Delfino Schumacher YouCBC W/AUTO [id number] 00:00:00* Test Item Value Reference Range Interpretation [...] code = 1016) (NOTE) Delfino OrtaCOMPREHENSIVE METABOLIC [id number] 00:00:00* Test Item Value Reference Range Interpretation Comme nts GLUCOSE (test code = 2217) 88 MG/DL BUN (test code = 2208) 24 MG/DL CREATININE (test code = 2214) 0.94 MG/DL eGFR AMER. (test cod e = 22293) 80 ML/MIN/1.73 eGFR NON- AMER. (test code = 98482) 69 ML/MIN/1.73 CALC BUN/CREAT (test code = [...] code = 2219) 10 U/L Delfino OrtaLIPID [id number] 00:00:00* Test Item Value Reference Range Interpretation Comme nts CHOLESTEROL (test code = 2210) 211 MG/DL TRIGLYCERIDES (test code = 2232) 52 MG/DL HDL CHOLESTEROL (test code = 2220) 90 MG/DL CALC LDL CHOL (test code = 2237) 111 MG/DL RISK RATIO LDL/HDL (test cod e = 2238) 1.23 RATIO Delfino OrtaCBC W/AUTO [id number] 00:00:00* Test Item Value Reference Range Interpretation [...] code = 1016) (NOTE) Delfino OrtaCOMPREHENSIVE METABOLIC [id number] 00:00:00* Test Item Value Reference Range Interpretation Comme nts GLUCOSE (test code = 2217) 88 MG/DL BUN (test code = 2208) 24 MG/DL CREATININE (test code = 2214) 0.94 MG/DL eGFR AMER. (test cod e = 41066) 80 ML/MIN/1.73 eGFR NON- AMER. (test code = 02024) 69 ML/MIN/1.73 CALC BUN/CREAT (test code = [...] code = 2219) 10 U/L Delfino OrtaLIPID [id number] 00:00:00* Test Item Value Reference Range Interpretation Comme nts CHOLESTEROL (test code = 2210) 211 MG/DL TRIGLYCERIDES (test code = 2232) 52 MG/DL HDL CHOLESTEROL (test code = 2220) 90 MG/DL CALC LDL CHOL (test code = 2237) 111 MG/DL RISK RATIO LDL/HDL (test cod e = 2238) 1.23 RATIO Delfino OrtaCBC W/AUTO [id number] 00:00:00* Test Item Value Reference Range Interpretation [...] = 1016) (NOTE) Delfino Schumacher YouCOMPREHENSIVE METABOLIC [id number] 00:00:00* Test Item Value Reference Range Interpretation Comme nts GLUCOSE (test code = 2217) 88 MG/DL BUN (test code = 2208) 24 MG/DL CREATININE (test code = 2214) 0.94 MG/DL eGFR AMER. (test cod e = 40322) 80 ML/MIN/1.73 eGFR NON- AMER. (test code = 11335) 69 ML/MIN/1.73 CALC BUN/CREAT (test code = [...] code = 2219) 10 U/L Delfino OrtaLIPID [id number] 00:00:00* Test Item Value Reference Range Interpretation Comme nts CHOLESTEROL (test code = 2210) 211 MG/DL TRIGLYCERIDES (test code = 2232) 52 MG/DL HDL CHOLESTEROL (test code = 2220) 90 MG/DL CALC LDL CHOL (test code = 2237) 111 MG/DL RISK RATIO LDL/HDL (test cod e = 2238) 1.23 RATIO Delfino OrtaCBC W/AUTO [id number] 00:00:00* Test Item Value Reference Range Interpretation [...] code = 1016) (NOTE) Delfino OrtaCOMPREHENSIVE METABOLIC [id number] 00:00:00* Test Item Value Reference Range Interpretation Comme nts GLUCOSE (test code = 2217) 88 MG/DL BUN (test code = 2208) 24 MG/DL CREATININE (test code = 2214) 0.94 MG/DL eGFR AMER. (test cod e = 78585) 80 ML/MIN/1.73 eGFR NON- AMER. (test code = 36288) 69 ML/MIN/1.73 CALC BUN/CREAT (test code = [...] = 2219) 10 U/L Delfino Schumacher YouLIPID [id number] 00:00:00* Test Item Value Reference Range Interpretation Comme nts CHOLESTEROL (test code = 2210) 211 MG/DL TRIGLYCERIDES (test code = 2232) 52 MG/DL HDL CHOLESTEROL (test code = 2220) 90 MG/DL CALC LDL CHOL (test code = 2237) 111 MG/DL RISK RATIO LDL/HDL (test cod e = 2238) 1.23 RATIO Delfino OrtaCBC W/AUTO [id number] 00:00:00* Test Item Value Reference Range Interpretation [...] code = 1016) (NOTE) Delfino OrtaCOMPREHENSIVE METABOLIC [id number] 00:00:00* Test Item Value Reference Range Interpretation Comme nts GLUCOSE (test code = 2217) 88 MG/DL BUN (test code = 2208) 24 MG/DL CREATININE (test code = 2214) 0.94 MG/DL eGFR AMER. (test cod e = 50948) 80 ML/MIN/1.73 eGFR NON- AMER. (test code = 88478) 69 ML/MIN/1.73 CALC BUN/CREAT (test code = [...] code = 2219) 10 U/L Delfino OrtaLIPID [id number] 00:00:00* Test Item Value Reference Range Interpretation Comme nts CHOLESTEROL (test code = 2210) 211 MG/DL TRIGLYCERIDES (test code = 2232) 52 MG/DL HDL CHOLESTEROL (test code = 2220) 90 MG/DL CALC LDL CHOL (test code = 2237) 111 MG/DL RISK RATIO LDL/HDL (test cod e = 2238) 1.23 RATIO Delfino OrtaCBC W/AUTO [id number] 00:00:00* Test Item Value Reference Range Interpretation [...] code = 1016) (NOTE) Delfino OrtaCOMPREHENSIVE METABOLIC [id number] 00:00:00* Test Item Value Reference Range Interpretation Comme nts GLUCOSE (test code = 2217) 88 MG/DL BUN (test code = 2208) 24 MG/DL CREATININE (test code = 2214) 0.94 MG/DL eGFR AMER. (test cod e = 92162) 80 ML/MIN/1.73 eGFR NON- AMER. (test code = 74243) 69 ML/MIN/1.73 CALC BUN/CREAT (test code = [...] code = 2219) 10 U/L Delfino OrtaLIPID [id number] 00:00:00* Test Item Value Reference Range Interpretation Comme nts CHOLESTEROL (test code = 2210) 211 MG/DL TRIGLYCERIDES (test code = 2232) 52 MG/DL HDL CHOLESTEROL (test code = 2220) 90 MG/DL CALC LDL CHOL (test code = 2237) 111 MG/DL RISK RATIO LDL/HDL (test cod e = 2238) 1.23 RATIO Delfino OrtaCBC W/AUTO [id number] 00:00:00* Test Item Value Reference Range Interpretation [...] code = 1016) (NOTE) Delfino OrtaCOMPREHENSIVE METABOLIC [id number] 00:00:00* Test Item Value Reference Range Interpretation Comme nts GLUCOSE (test code = 2217) 88 MG/DL BUN (test code = 2208) 24 MG/DL CREATININE (test code = 2214) 0.94 MG/DL eGFR AMER. (test cod e = 08127) 80 ML/MIN/1.73 eGFR NON- AMER. (test code = 19753) 69 ML/MIN/1.73 CALC BUN/CREAT (test code = [...] code = 2219) 10 U/L Delfino OrtaLIPID [id number] 00:00:00* Test Item Value Reference Range Interpretation Comme nts CHOLESTEROL (test code = 2210) 211 MG/DL TRIGLYCERIDES (test code = 2232) 52 MG/DL HDL CHOLESTEROL (test code = 2220) 90 MG/DL CALC LDL CHOL (test code = 2237) 111 MG/DL RISK RATIO LDL/HDL (test cod e = 2238) 1.23 RATIO Delfino OrtaCBC W/AUTO [id number] 00:00:00* Test Item Value Reference Range Interpretation [...] code = 1016) (NOTE) Delfino OrtaCOMPREHENSIVE METABOLIC [id number] 00:00:00* Test Item Value Reference Range Interpretation Comme nts GLUCOSE (test code = 2217) 88 MG/DL BUN (test code = 2208) 24 MG/DL CREATININE (test code = 2214) 0.94 MG/DL eGFR AMER. (test cod e = 19467) 80 ML/MIN/1.73 eGFR NON- AMER. (test code = 28566) 69 ML/MIN/1.73 CALC BUN/CREAT (test code = [...] code = 2219) 10 U/L Delfino OrtaLIPID [id number] 00:00:00* Test Item Value Reference Range Interpretation Comme nts CHOLESTEROL (test code = 2210) 211 MG/DL TRIGLYCERIDES (test code = 2232) 52 MG/DL HDL CHOLESTEROL (test code = 2220) 90 MG/DL CALC LDL CHOL (test code = 2237) 111 MG/DL RISK RATIO LDL/HDL (test cod e = 2238) 1.23 RATIO Delfino Endy YouCBC W/AUTO [id number] 00:00:00* Test Item Value Reference Range Interpretation [...] code = 1016) (NOTE) Delfino OrtaCOMPREHENSIVE METABOLIC [id number] 00:00:00* Test Item Value Reference Range Interpretation Comme nts GLUCOSE (test code = 2217) 88 MG/DL BUN (test code = 2208) 24 MG/DL CREATININE (test code = 2214) 0.94 MG/DL eGFR AMER. (test cod e = 24445) 80 ML/MIN/1.73 eGFR NON- AMER. (test code = 29267) 69 ML/MIN/1.73 CALC BUN/CREAT (test code = [...] code = 2219) 10 U/L Delfino OrtaLIPID [id number] 00:00:00* Test Item Value Reference Range Interpretation Comme nts CHOLESTEROL (test code = 2210) 211 MG/DL TRIGLYCERIDES (test code = 2232) 52 MG/DL HDL CHOLESTEROL (test code = 2220) 90 MG/DL CALC LDL CHOL (test code = 2237) 111 MG/DL RISK RATIO LDL/HDL (test cod e = 2238) 1.23 RATIO Delfino OrtaCBC W/AUTO [id number] 00:00:00* Test Item Value Reference Range Interpretation [...] = 1016) (NOTE) Delfino Schumacher AustinCOMPREHENSIVE METABOLIC [id number] 00:00:00* Test Item Value Reference Range Interpretation Comme nts GLUCOSE (test code = 2217) 88 MG/DL BUN (test code = 2208) 24 MG/DL CREATININE (test code = 2214) 0.94 MG/DL eGFR AMER. (test cod e = 60779) 80 ML/MIN/1.73 eGFR NON- AMER. (test code = 72787) 69 ML/MIN/1.73 CALC BUN/CREAT (test code = [...] code = 2219) 10 U/L Delfino OrtaLIPID [id number] 00:00:00* Test Item Value Reference Range Interpretation Comme nts CHOLESTEROL (test code = 2210) 211 MG/DL TRIGLYCERIDES (test code = 2232) 52 MG/DL HDL CHOLESTEROL (test code = 2220) 90 MG/DL CALC LDL CHOL (test code = 2237) 111 MG/DL RISK RATIO LDL/HDL (test cod e = 2238) 1.23 RATIO [facility] [id number] 00:00:00* Test Item Value Reference Range Interpretation [...] COMMENTS (test code = 1016) (NOTE) [facility] [id number] 00:00:00* Test Item Value Reference Range Interpretation [...] (test code = 1016) (NOTE) COMPREHENSIVE METABOLIC [id number] 00:00:00* Test Item Value Reference Range Interpretation Comme nts GLUCOSE (test code = 2217) 88 MG/DL BUN (test code = 2208) 24 MG/DL CREATININE (test code = 2214) 0.94 MG/DL eGFR AMER. (test cod e = 10047) 80 ML/MIN/1.73 eGFR NON- AMER. (test code = 67745) 69 ML/MIN/1.73 CALC BUN/CREAT (test code = [...] ALT (test code = 2219) 10 U/L URIC [id number] 00:00:00* Test Item Value Reference Range Interpretation Comme nts URIC ACID (test code = 2233) 7.5 MG/DL VITAMIN D, 25 [id number] 00:00:00* Test Item Value Reference Range Interpretation Comme nts VITAMIN D, 25 OH (test code = 4958) 36 NG/ML URIC [id number] 00:00:00* Test Item Value Reference Range Interpretation Comme nts URIC ACID (test code = 2233) 7.5 MG/DL VITAMIN D, 25 [id number] 00:00:00* Test Item Value Reference Range Interpretation Comme nts VITAMIN D, 25 OH (test code = 4958) 36 NG/ML URIC [id number] 00:00:00* Test Item Value Reference Range Interpretation Comme nts URIC ACID (test code = 2233) 7.5 MG/DL VITAMIN D, 25 [id number] 00:00:00* Test Item Value Reference Range Interpretation Comme nts VITAMIN D, 25 OH (test code = 4958) 36 NG/ML VITAMIN D, 25 [id number] 00:00:00* Test Item Value Reference Range Interpretation Comme nts VITAMIN D, 25 OH (test code = 4958) 36 NG/ML Delfino Schumacher AustinURIC [id number] 00:00:00* Test Item Value Reference Range Interpretation Comme nts URIC ACID (test code = 2233) 7.5 MG/DL Delfino Schumacher AustinVITAMIN D, 25 [id number] 00:00:00* Test Item Value Reference Range Interpretation Comme nts VITAMIN D, 25 OH (test code = 4958) 36 NG/ML Delfino Schumacher AustinURIC [id number] 00:00:00* Test Item Value Reference Range Interpretation Comme nts URIC ACID (test code = 2233) 7.5 MG/DL Delfino Schumacher AustinVITAMIN D, 25 [id number] 00:00:00* Test Item Value Reference Range Interpretation Comme nts VITAMIN D, 25 OH (test code = 4958) 36 NG/ML Delfino Schumacher AustinVITAMIN D, 25 [id number] 00:00:00* Test Item Value Reference Range Interpretation Comme nts VITAMIN D, 25 OH (test code = 4958) 36 NG/ML Delfino Schumacher AustinURIC [id number] 00:00:00* Test Item Value Reference Range Interpretation Comme nts URIC ACID (test code = 2233) 7.5 MG/DL Delfino Schumacher AustinVITAMIN D, 25 [id number] 00:00:00* Test Item Value Reference Range Interpretation Comme nts VITAMIN D, 25 OH (test code = 4958) 36 NG/ML Delfino Schumacher AustinURIC [id number] 00:00:00* Test Item Value Reference Range Interpretation Comme nts URIC ACID (test code = 2233) 7.5 MG/DL Delfino Schumacher AustinVITAMIN D, 25 [id number] 00:00:00* Test Item Value Reference Range Interpretation Comme nts VITAMIN D, 25 OH (test code = 4958) 36 NG/ML Delfino Schumacher AustinURIC [id number] 00:00:00* Test Item Value Reference Range Interpretation Comme nts URIC ACID (test code = 2233) 7.5 MG/DL Delfino Schumacher AustinVITAMIN D, 25 [id number] 00:00:00* Test Item Value Reference Range Interpretation Comme nts VITAMIN D, 25 OH (test code = 4958) 36 NG/ML Delfino Schumacher AustinURIC [id number] 00:00:00* Test Item Value Reference Range Interpretation Comme nts URIC ACID (test code = 2233) 7.5 MG/DL Delfino Schumacher AustinVITAMIN D, 25 [id number] 00:00:00* Test Item Value Reference Range Interpretation Comme nts VITAMIN D, 25 OH (test code = 4958) 36 NG/ML Delfino Schumacher AustinURIC [id number] 00:00:00* Test Item Value Reference Range Interpretation Comme nts URIC ACID (test code = 2233) 7.5 MG/DL Delfino Schumacher AustinVITAMIN D, 25 [id number] 00:00:00* Test Item Value Reference Range Interpretation Comme nts VITAMIN D, 25 OH (test code = 4958) 36 NG/ML Delfino Schumacher AustinURIC [id number] 00:00:00* Test Item Value Reference Range Interpretation Comme nts URIC ACID (test code = 2233) 7.5 MG/DL Delfino Schumacher AustinVITAMIN D, 25 [id number] 00:00:00* Test Item Value Reference Range Interpretation Comme nts VITAMIN D, 25 OH (test code = 4958) 36 NG/ML Delfino Schumacher AustinURIC [id number] 00:00:00* Test Item Value Reference Range Interpretation Comme nts URIC ACID (test code = 2233) 7.5 MG/DL Delfino Schumacher AustinVITAMIN D, 25 [id number] 00:00:00* Test Item Value Reference Range Interpretation Comme nts VITAMIN D, 25 OH (test code = 4958) 36 NG/ML Delfino Schumacher AustinURIC [id number] 00:00:00* Test Item Value Reference Range Interpretation Comme nts URIC ACID (test code = 2233) 7.5 MG/DL Delfino Schumacher AustinVITAMIN D, 25 [id number] 00:00:00* Test Item Value Reference Range Interpretation Comme nts VITAMIN D, 25 OH (test code = 4958) 36 NG/ML Delfino Schumacher AustinURIC [id number] 00:00:00* Test Item Value Reference Range Interpretation Comme nts URIC ACID (test code = 2233) 7.5 MG/DL Delfino Schumacher AustinVITAMIN D, 25 [id number] 00:00:00* Test Item Value Reference Range Interpretation Comme nts VITAMIN D, 25 OH (test code = 4958) 36 NG/ML Delfino Schumacher AustinURIC [id number] 00:00:00* Test Item Value Reference Range Interpretation Comme nts URIC ACID (test code = 2233) 7.5 MG/DL Delfino Schumacher AustinVITAMIN D, 25 [id number] 00:00:00* Test Item Value Reference Range Interpretation Comme nts VITAMIN D, 25 OH (test code = 4958) 36 NG/ML Delfino Schumacher AustinURIC [id number] 00:00:00* Test Item Value Reference Range Interpretation Comme nts URIC ACID (test code = 2233) 7.5 MG/DL Delfino Schumacher AustinVITAMIN D, 25 [id number] 00:00:00* Test Item Value Reference Range Interpretation Comme nts VITAMIN D, 25 OH (test code = 4958) 36 NG/ML Delfino Schumacher AustinURIC [id number] 00:00:00* Test Item Value Reference Range Interpretation Comme nts URIC ACID (test code = 2233) 7.5 MG/DL Delfino Schumacher AustinVITAMIN D, 25 [id number] 00:00:00* Test Item Value Reference Range Interpretation Comme nts VITAMIN D, 25 OH (test code = 4958) 36 NG/ML Delfino Schumacher AustinURIC [id number] 00:00:00* Test Item Value Reference Range Interpretation Comme nts URIC ACID (test code = 2233) 7.5 MG/DL Delfino Schumacher AustinVITAMIN D, 25 [id number] 00:00:00* Test Item Value Reference Range Interpretation Comme nts VITAMIN D, 25 OH (test code = 4958) 36 NG/ML Delfino Schumacher AustinURIC [id number] 00:00:00* Test Item Value Reference Range Interpretation Comme nts URIC ACID (test code = 2233) 7.5 MG/DL Delfino Schumacher AustinVITAMIN D, 25 [id number] 00:00:00* Test Item Value Reference Range Interpretation Comme nts VITAMIN D, 25 OH (test code = 4958) 36 NG/ML Delfino Schumacher [facility]IC [id number] 00:00:00* Test Item Value Reference Range Interpretation Comme nts URIC ACID (test code = 2233) 7.5 MG/DL Delfino Schumacher AustinVITAMIN D, 25 [id number] 00:00:00* Test Item Value Reference Range Interpretation Comme nts VITAMIN D, 25 OH (test code = 4958) 36 NG/ML Delfino Schumacher [facility] [id number] 00:00:00* Test Item Value Reference Range Interpretation Comme nts URIC ACID (test code = 2233) 7.5 MG/DL Delfino Schumacher AustinVITAMIN D, 25 [id number] 00:00:00* Test Item Value Reference Range Interpretation Comme nts VITAMIN D, 25 OH (test code = 4958) 36 NG/ML Delfino Schumacher [facility]IC [id number] 00:00:00* Test Item Value Reference Range Interpretation Comme nts URIC ACID (test code = 2233) 7.5 MG/DL Delfino Schumacher AustinVITAMIN D, 25 [id number] 00:00:00* Test Item Value Reference Range Interpretation Comme nts VITAMIN D, 25 OH (test code = 4958) 36 NG/ML Delfino Schumacher [facility] [id number] 00:00:00* Test Item Value Reference Range Interpretation Comme nts URIC ACID (test code = 2233) 7.5 MG/DL Delfino Schumacher AustinVITAMIN D, 25 [id number] 00:00:00* Test Item Value Reference Range Interpretation Comme nts VITAMIN D, 25 OH (test code = 4958) 36 NG/ML Delfino Schumacher [facility] [id number] 00:00:00* Test Item Value Reference Range Interpretation Comme nts URIC ACID (test code = 2233) 7.5 MG/DL Delfino Schumacher AustinVITAMIN D, 25 [id number] 00:00:00* Test Item Value Reference Range Interpretation Comme nts VITAMIN D, 25 OH (test code = 4958) 36 NG/ML Delfino Schumacher [facility] [id number] 00:00:00* Test Item Value Reference Range Interpretation Comme nts URIC ACID (test code = 2233) 7.5 MG/DL Delfino Schumacher AustinVITAMIN D, 25 [id number] 00:00:00* Test Item Value Reference Range Interpretation Comme nts VITAMIN D, 25 OH (test code = 4958) 36 NG/ML Delfino Schumacher [facility] [id number] 00:00:00* Test Item Value Reference Range Interpretation Comme nts URIC ACID (test code = 2233) 7.5 MG/DL Delfino Schumacher AustinVITAMIN D, 25 [id number] 00:00:00* Test Item Value Reference Range Interpretation Comme nts VITAMIN D, 25 OH (test code = 4958) 36 NG/ML Delfino Schumacher [facility] [id number] 00:00:00* Test Item Value Reference Range Interpretation Comme nts URIC ACID (test code = 2233) 7.5 MG/DL Delfino Schumacher AustinVITAMIN D, 25 [id number] 00:00:00* Test Item Value Reference Range Interpretation Comme nts VITAMIN D, 25 OH (test code = 4958) 36 NG/ML Delfino Schumacher [facility] [id number] 00:00:00* Test Item Value Reference Range Interpretation Comme nts URIC ACID (test code = 2233) 7.5 MG/DL Delfino Schumacher AustinVITAMIN D, 25 [id number] 00:00:00* Test Item Value Reference Range Interpretation Comme nts VITAMIN D, 25 OH (test code = 4958) 36 NG/ML Delfino Schumacher [facility] [id number] 00:00:00* Test Item Value Reference Range Interpretation Comme nts URIC ACID (test code = 2233) 7.5 MG/DL Delfino Schumacher AustinVITAMIN D, 25 [id number] 00:00:00* Test Item Value Reference Range Interpretation Comme nts VITAMIN D, 25 OH (test code = 4958) 36 NG/ML Delfino Schumacher [facility] [id number] 00:00:00* Test Item Value Reference Range Interpretation Comme nts URIC ACID (test code = 2233) 7.5 MG/DL Delfino Schumacher AustinVITAMIN D, 25 [id number] 00:00:00* Test Item Value Reference Range Interpretation Comme nts VITAMIN D, 25 OH (test code = 4958) 36 NG/ML Delfino Schumacher [facility] [id number] 00:00:00* Test Item Value Reference Range Interpretation Comme nts URIC ACID (test code = 2233) 7.5 MG/DL Delfino Schumacher AustinVITAMIN D, 25 [id number] 00:00:00* Test Item Value Reference Range Interpretation Comme nts VITAMIN D, 25 OH (test code = 4958) 36 NG/ML Delfino Schumacher [facility] [id number] 00:00:00* Test Item Value Reference Range Interpretation Comme nts URIC ACID (test code = 2233) 7.5 MG/DL Delfino Schumacher AustinVITAMIN D, 25 [id number] 00:00:00* Test Item Value Reference Range Interpretation Comme nts VITAMIN D, 25 OH (test code = 4958) 36 NG/ML Delfino Schmuacher [facility] [id number] 00:00:00* Test Item Value Reference Range Interpretation Comme nts URIC ACID (test code = 2233) 7.5 MG/DL Delfino Schumacher AustinVITAMIN D, 25 [id number] 00:00:00* Test Item Value Reference Range Interpretation Comme nts VITAMIN D, 25 OH (test code = 4958) 36 NG/ML Delfino Schumacher [facility] [id number] 00:00:00* Test Item Value Reference Range Interpretation Comme nts URIC ACID (test code = 2233) 7.5 MG/DL Delfino Schumacher AustinVITAMIN D, 25 [id number] 00:00:00* Test Item Value Reference Range Interpretation Comme nts VITAMIN D, 25 OH (test code = 4958) 36 NG/ML Delfino Schumacher [facility] [id number] 00:00:00* Test Item Value Reference Range Interpretation Comme nts URIC ACID (test code = 2233) 7.5 MG/DL Delfino Schumacher AustinVITAMIN D, 25 [id number] 00:00:00* Test Item Value Reference Range Interpretation Comme nts VITAMIN D, 25 OH (test code = 4958) 36 NG/ML Delfino Schumacher [facility] [id number] 00:00:00* Test Item Value Reference Range Interpretation Comme nts URIC ACID (test code = 2233) 7.5 MG/DL Delfino Schumacher [facility] [id number] 00:00:00* Test Item Value Reference Range Interpretation Comme nts URIC ACID (test code = 2233) 7.5 MG/DL Delfino Schumacher [facility] [id number] 00:00:00* Test Item Value Reference Range Interpretation Comme nts URIC ACID (test code = 2233) 7.5 MG/DL VITAMIN D, 25 [id number] 00:00:00* Test Item Value Reference Range Interpretation Comme nts VITAMIN D, 25 OH (test code = 4958) 36 NG/ML RHEUMATOID FACTOR, [id number] 00:00:00* Test Item Value Reference Range Interpretation Comme nts RHEUMATOID FACTOR, QUANT (te st code = 3502) <10 IU/ML SEDIMENTATION [id number] 00:00:00* Test Item Value Reference Range Interpretation Comme nts SEDIMENTATION RATE (test cod e = 1017) 117 MM/HOUR C-REACTIVE [id number] 00:00:00* Test Item Value Reference Range Interpretation Comme nts C-REACTIVE PROTEIN (test cod e = 3513) 0.3 MG/DL RHEUMATOID FACTOR, [id number] 00:00:00* Test Item Value Reference Range Interpretation Comme nts RHEUMATOID FACTOR, QUANT (te st code = 3502) <10 IU/ML SEDIMENTATION [id number] 00:00:00* Test Item Value Reference Range Interpretation Comme nts SEDIMENTATION RATE (test cod e = 1017) 117 MM/HOUR C-REACTIVE [id number] 00:00:00* Test Item Value Reference Range Interpretation Comme nts C-REACTIVE PROTEIN (test cod e = 3513) 0.3 MG/DL RHEUMATOID FACTOR, [id number] 00:00:00* Test Item Value Reference Range Interpretation Comme nts RHEUMATOID FACTOR, QUANT (te st code = 3502) <10 IU/ML SEDIMENTATION [id number] 00:00:00* Test Item Value Reference Range Interpretation Comme nts SEDIMENTATION RATE (test cod e = 1017) 117 MM/HOUR C-REACTIVE [id number] 00:00:00* Test Item Value Reference Range Interpretation Comme nts C-REACTIVE PROTEIN (test cod e = 3513) 0.3 MG/DL RHEUMATOID FACTOR, [id number] 00:00:00* Test Item Value Reference Range Interpretation Comme nts RHEUMATOID FACTOR, QUANT (te st code = 3502) <10 IU/ML SEDIMENTATION [id number] 00:00:00* Test Item Value Reference Range Interpretation Comme nts SEDIMENTATION RATE (test cod e = 1017) 117 MM/HOUR RHEUMATOID FACTOR, [id number] 00:00:00* Test Item Value Reference Range Interpretation Comme nts RHEUMATOID FACTOR, QUANT (te st code = 3502) <10 IU/ML Delfino F AustinSEDIMENTATION [id number] 00:00:00* Test Item Value Reference Range Interpretation Comme nts SEDIMENTATION RATE (test cod e = 1017) 117 MM/HOUR Delfino F AustinC-REACTIVE [id number] 00:00:00* Test Item Value Reference Range Interpretation Comme nts C-REACTIVE PROTEIN (test cod e = 3513) 0.3 MG/DL Delfino F AustinRHEUMATOID FACTOR, [id number] 00:00:00* Test Item Value Reference Range Interpretation Comme nts RHEUMATOID FACTOR, QUANT (te st code = 3502) <10 IU/ML Delfino F AustinSEDIMENTATION [id number] 00:00:00* Test Item Value Reference Range Interpretation Comme nts SEDIMENTATION RATE (test cod e = 1017) 117 MM/HOUR Delfino F AustinC-REACTIVE [id number] 00:00:00* Test Item Value Reference Range Interpretation Comme nts C-REACTIVE PROTEIN (test cod e = 3513) 0.3 MG/DL Delfino F AustinC-REACTIVE [id number] 00:00:00* Test Item Value Reference Range Interpretation Comme nts C-REACTIVE PROTEIN (test cod e = 3513) 0.3 MG/DL Delfino F AustinRHEUMATOID FACTOR, [id number] 00:00:00* Test Item Value Reference Range Interpretation Comme nts RHEUMATOID FACTOR, QUANT (te st code = 3502) <10 IU/ML Delfino F AustinSEDIMENTATION [id number] 00:00:00* Test Item Value Reference Range Interpretation Comme nts SEDIMENTATION RATE (test cod e = 1017) 117 MM/HOUR Delfino F AustinRHEUMATOID FACTOR, [id number] 00:00:00* Test Item Value Reference Range Interpretation Comme nts RHEUMATOID FACTOR, QUANT (te st code = 3502) <10 IU/ML Delfino F AustinC-REACTIVE [id number] 00:00:00* Test Item Value Reference Range Interpretation Comme nts C-REACTIVE PROTEIN (test cod e = 3513) 0.3 MG/DL Delfino F AustinRHEUMATOID FACTOR, [id number] 00:00:00* Test Item Value Reference Range Interpretation Comme nts RHEUMATOID FACTOR, QUANT (te st code = 3502) <10 IU/ML Delfino F AustinSEDIMENTATION [id number] 00:00:00* Test Item Value Reference Range Interpretation Comme nts SEDIMENTATION RATE (test cod e = 1017) 117 MM/HOUR Delfino F AustinC-REACTIVE [id number] 00:00:00* Test Item Value Reference Range Interpretation Comme nts C-REACTIVE PROTEIN (test cod e = 3513) 0.3 MG/DL Delfino F AustinSEDIMENTATION [id number] 00:00:00* Test Item Value Reference Range Interpretation Comme nts SEDIMENTATION RATE (test cod e = 1017) 117 MM/HOUR Delfino F AustinRHEUMATOID FACTOR, [id number] 00:00:00* Test Item Value Reference Range Interpretation Comme nts RHEUMATOID FACTOR, QUANT (te st code = 3502) <10 IU/ML Delfino F AustinSEDIMENTATION [id number] 00:00:00* Test Item Value Reference Range Interpretation Comme nts SEDIMENTATION RATE (test cod e = 1017) 117 MM/HOUR Delfino F AustinC-REACTIVE [id number] 00:00:00* Test Item Value Reference Range Interpretation Comme nts C-REACTIVE PROTEIN (test cod e = 3513) 0.3 MG/DL Delfino F AustinRHEUMATOID FACTOR, [id number] 00:00:00* Test Item Value Reference Range Interpretation Comme nts RHEUMATOID FACTOR, QUANT (te st code = 3502) <10 IU/ML Delfino F AustinSEDIMENTATION [id number] 00:00:00* Test Item Value Reference Range Interpretation Comme nts SEDIMENTATION RATE (test cod e = 1017) 117 MM/HOUR Delfino F AustinC-REACTIVE [id number] 00:00:00* Test Item Value Reference Range Interpretation Comme nts C-REACTIVE PROTEIN (test cod e = 3513) 0.3 MG/DL Delfino F AustinRHEUMATOID FACTOR, [id number] 00:00:00* Test Item Value Reference Range Interpretation Comme nts RHEUMATOID FACTOR, QUANT (te st code = 3502) <10 IU/ML Delfino F AustinSEDIMENTATION [id number] 00:00:00* Test Item Value Reference Range Interpretation Comme nts SEDIMENTATION RATE (test cod e = 1017) 117 MM/HOUR Delfino F AustinC-REACTIVE [id number] 00:00:00* Test Item Value Reference Range Interpretation Comme nts C-REACTIVE PROTEIN (test cod e = 3513) 0.3 MG/DL Delfino F AustinRHEUMATOID FACTOR, [id number] 00:00:00* Test Item Value Reference Range Interpretation Comme nts RHEUMATOID FACTOR, QUANT (te st code = 3502) <10 IU/ML Delfino F AustinSEDIMENTATION [id number] 00:00:00* Test Item Value Reference Range Interpretation Comme nts SEDIMENTATION RATE (test cod e = 1017) 117 MM/HOUR Delfino F AustinC-REACTIVE [id number] 00:00:00* Test Item Value Reference Range Interpretation Comme nts C-REACTIVE PROTEIN (test cod e = 3513) 0.3 MG/DL Delfino F AustinRHEUMATOID FACTOR, [id number] 00:00:00* Test Item Value Reference Range Interpretation Comme nts RHEUMATOID FACTOR, QUANT (te st code = 3502) <10 IU/ML Delfino F AustinSEDIMENTATION [id number] 00:00:00* Test Item Value Reference Range Interpretation Comme nts SEDIMENTATION RATE (test cod e = 1017) 117 MM/HOUR Delfino F AustinC-REACTIVE [id number] 00:00:00* Test Item Value Reference Range Interpretation Comme nts C-REACTIVE PROTEIN (test cod e = 3513) 0.3 MG/DL Delfino F AustinRHEUMATOID FACTOR, [id number] 00:00:00* Test Item Value Reference Range Interpretation Comme nts RHEUMATOID FACTOR, QUANT (te st code = 3502) <10 IU/ML Delfino F AustinSEDIMENTATION [id number] 00:00:00* Test Item Value Reference Range Interpretation Comme nts SEDIMENTATION RATE (test cod e = 1017) 117 MM/HOUR Delfino F AustinC-REACTIVE [id number] 00:00:00* Test Item Value Reference Range Interpretation Comme nts C-REACTIVE PROTEIN (test cod e = 3513) 0.3 MG/DL Delfino F AustinRHEUMATOID FACTOR, [id number] 00:00:00* Test Item Value Reference Range Interpretation Comme nts RHEUMATOID FACTOR, QUANT (te st code = 3502) <10 IU/ML Delfino F AustinSEDIMENTATION [id number] 00:00:00* Test Item Value Reference Range Interpretation Comme nts SEDIMENTATION RATE (test cod e = 1017) 117 MM/HOUR Delfino F AustinC-REACTIVE [id number] 00:00:00* Test Item Value Reference Range Interpretation Comme nts C-REACTIVE PROTEIN (test cod e = 3513) 0.3 MG/DL Delfino F AustinRHEUMATOID FACTOR, [id number] 00:00:00* Test Item Value Reference Range Interpretation Comme nts RHEUMATOID FACTOR, QUANT (te st code = 3502) <10 IU/ML Delfino F AustinSEDIMENTATION [id number] 00:00:00* Test Item Value Reference Range Interpretation Comme nts SEDIMENTATION RATE (test cod e = 1017) 117 MM/HOUR Delfino F AustinC-REACTIVE [id number] 00:00:00* Test Item Value Reference Range Interpretation Comme nts C-REACTIVE PROTEIN (test cod e = 3513) 0.3 MG/DL Delfino F AustinRHEUMATOID FACTOR, [id number] 00:00:00* Test Item Value Reference Range Interpretation Comme nts RHEUMATOID FACTOR, QUANT (te st code = 3502) <10 IU/ML Delfino F AustinSEDIMENTATION [id number] 00:00:00* Test Item Value Reference Range Interpretation Comme nts SEDIMENTATION RATE (test cod e = 1017) 117 MM/HOUR Delfino F AustinC-REACTIVE [id number] 00:00:00* Test Item Value Reference Range Interpretation Comme nts C-REACTIVE PROTEIN (test cod e = 3513) 0.3 MG/DL Delfino F AustinRHEUMATOID FACTOR, [id number] 00:00:00* Test Item Value Reference Range Interpretation Comme nts RHEUMATOID FACTOR, QUANT (te st code = 3502) <10 IU/ML Delfino F AustinSEDIMENTATION [id number] 00:00:00* Test Item Value Reference Range Interpretation Comme nts SEDIMENTATION RATE (test cod e = 1017) 117 MM/HOUR Delfino F AustinC-REACTIVE [id number] 00:00:00* Test Item Value Reference Range Interpretation Comme nts C-REACTIVE PROTEIN (test cod e = 3513) 0.3 MG/DL Delfino F AustinRHEUMATOID FACTOR, [id number] 00:00:00* Test Item Value Reference Range Interpretation Comme nts RHEUMATOID FACTOR, QUANT (te st code = 3502) <10 IU/ML Delfino F AustinSEDIMENTATION [id number] 00:00:00* Test Item Value Reference Range Interpretation Comme nts SEDIMENTATION RATE (test cod e = 1017) 117 MM/HOUR Delfino F AustinC-REACTIVE [id number] 00:00:00* Test Item Value Reference Range Interpretation Comme nts C-REACTIVE PROTEIN (test cod e = 3513) 0.3 MG/DL Delfino F AustinRHEUMATOID FACTOR, [id number] 00:00:00* Test Item Value Reference Range Interpretation Comme nts RHEUMATOID FACTOR, QUANT (te st code = 3502) <10 IU/ML Delfino F AustinSEDIMENTATION [id number] 00:00:00* Test Item Value Reference Range Interpretation Comme nts SEDIMENTATION RATE (test cod e = 1017) 117 MM/HOUR Delfino F AustinC-REACTIVE [id number] 00:00:00* Test Item Value Reference Range Interpretation Comme nts C-REACTIVE PROTEIN (test cod e = 3513) 0.3 MG/DL Delfino F AustinRHEUMATOID FACTOR, [id number] 00:00:00* Test Item Value Reference Range Interpretation Comme nts RHEUMATOID FACTOR, QUANT (te st code = 3502) <10 IU/ML Delfino F AustinSEDIMENTATION [id number] 00:00:00* Test Item Value Reference Range Interpretation Comme nts SEDIMENTATION RATE (test cod e = 1017) 117 MM/HOUR Delfino F AustinC-REACTIVE [id number] 00:00:00* Test Item Value Reference Range Interpretation Comme nts C-REACTIVE PROTEIN (test cod e = 3513) 0.3 MG/DL Delfino F AustinRHEUMATOID FACTOR, [id number] 00:00:00* Test Item Value Reference Range Interpretation Comme nts RHEUMATOID FACTOR, QUANT (te st code = 3502) <10 IU/ML Delfino F AustinSEDIMENTATION [id number] 00:00:00* Test Item Value Reference Range Interpretation Comme nts SEDIMENTATION RATE (test cod e = 1017) 117 MM/HOUR Delfino F AustinC-REACTIVE [id number] 00:00:00* Test Item Value Reference Range Interpretation Comme nts C-REACTIVE PROTEIN (test cod e = 3513) 0.3 MG/DL Delfino F AustinRHEUMATOID FACTOR, [id number] 00:00:00* Test Item Value Reference Range Interpretation Comme nts RHEUMATOID FACTOR, QUANT (te st code = 3502) <10 IU/ML Delfino F AustinSEDIMENTATION [id number] 00:00:00* Test Item Value Reference Range Interpretation Comme nts SEDIMENTATION RATE (test cod e = 1017) 117 MM/HOUR Delfino F AustinC-REACTIVE [id number] 00:00:00* Test Item Value Reference Range Interpretation Comme nts C-REACTIVE PROTEIN (test cod e = 3513) 0.3 MG/DL Delfino F AustinRHEUMATOID FACTOR, [id number] 00:00:00* Test Item Value Reference Range Interpretation Comme nts RHEUMATOID FACTOR, QUANT (te st code = 3502) <10 IU/ML Delfino F AustinSEDIMENTATION [id number] 00:00:00* Test Item Value Reference Range Interpretation Comme nts SEDIMENTATION RATE (test cod e = 1017) 117 MM/HOUR Delfino F AustinC-REACTIVE [id number] 00:00:00* Test Item Value Reference Range Interpretation Comme nts C-REACTIVE PROTEIN (test cod e = 3513) 0.3 MG/DL Delfino F AustinRHEUMATOID FACTOR, [id number] 00:00:00* Test Item Value Reference Range Interpretation Comme nts RHEUMATOID FACTOR, QUANT (te st code = 3502) <10 IU/ML Delfino F AustinSEDIMENTATION [id number] 00:00:00* Test Item Value Reference Range Interpretation Comme nts SEDIMENTATION RATE (test cod e = 1017) 117 MM/HOUR Delfino F AustinC-REACTIVE [id number] 00:00:00* Test Item Value Reference Range Interpretation Comme nts C-REACTIVE PROTEIN (test cod e = 3513) 0.3 MG/DL Delfino F AustinRHEUMATOID FACTOR, [id number] 00:00:00* Test Item Value Reference Range Interpretation Comme nts RHEUMATOID FACTOR, QUANT (te st code = 3502) <10 IU/ML Delfino F AustinSEDIMENTATION [id number] 00:00:00* Test Item Value Reference Range Interpretation Comme nts SEDIMENTATION RATE (test cod e = 1017) 117 MM/HOUR Delfino F AustinC-REACTIVE [id number] 00:00:00* Test Item Value Reference Range Interpretation Comme nts C-REACTIVE PROTEIN (test cod e = 3513) 0.3 MG/DL Delfino F AustinRHEUMATOID FACTOR, [id number] 00:00:00* Test Item Value Reference Range Interpretation Comme nts RHEUMATOID FACTOR, QUANT (te st code = 3502) <10 IU/ML Delfino F AustinSEDIMENTATION [id number] 00:00:00* Test Item Value Reference Range Interpretation Comme nts SEDIMENTATION RATE (test cod e = 1017) 117 MM/HOUR Delfino F AustinC-REACTIVE [id number] 00:00:00* Test Item Value Reference Range Interpretation Comme nts C-REACTIVE PROTEIN (test cod e = 3513) 0.3 MG/DL Delfino F AustinRHEUMATOID FACTOR, [id number] 00:00:00* Test Item Value Reference Range Interpretation Comme nts RHEUMATOID FACTOR, QUANT (te st code = 3502) <10 IU/ML Dlefino F AustinSEDIMENTATION [id number] 00:00:00* Test Item Value Reference Range Interpretation Comme nts SEDIMENTATION RATE (test cod e = 1017) 117 MM/HOUR Delfino F AustinC-REACTIVE [id number] 00:00:00* Test Item Value Reference Range Interpretation Comme nts C-REACTIVE PROTEIN (test cod e = 3513) 0.3 MG/DL Delfino F AustinRHEUMATOID FACTOR, [id number] 00:00:00* Test Item Value Reference Range Interpretation Comme nts RHEUMATOID FACTOR, QUANT (te st code = 3502) <10 IU/ML Delfino F AustinSEDIMENTATION [id number] 00:00:00* Test Item Value Reference Range Interpretation Comme nts SEDIMENTATION RATE (test cod e = 1017) 117 MM/HOUR Delfino F AustinC-REACTIVE [id number] 00:00:00* Test Item Value Reference Range Interpretation Comme nts C-REACTIVE PROTEIN (test cod e = 3513) 0.3 MG/DL Delfino F AustinRHEUMATOID FACTOR, [id number] 00:00:00* Test Item Value Reference Range Interpretation Comme nts RHEUMATOID FACTOR, QUANT (te st code = 3502) <10 IU/ML Delfino F AustinSEDIMENTATION [id number] 00:00:00* Test Item Value Reference Range Interpretation Comme nts SEDIMENTATION RATE (test cod e = 1017) 117 MM/HOUR Delfino F AustinC-REACTIVE [id number] 00:00:00* Test Item Value Reference Range Interpretation Comme nts C-REACTIVE PROTEIN (test cod e = 3513) 0.3 MG/DL Delfino F AustinRHEUMATOID FACTOR, [id number] 00:00:00* Test Item Value Reference Range Interpretation Comme nts RHEUMATOID FACTOR, QUANT (te st code = 3502) <10 IU/ML Delfino F AustinSEDIMENTATION [id number] 00:00:00* Test Item Value Reference Range Interpretation Comme nts SEDIMENTATION RATE (test cod e = 1017) 117 MM/HOUR Delfino F AustinC-REACTIVE [id number] 00:00:00* Test Item Value Reference Range Interpretation Comme nts C-REACTIVE PROTEIN (test cod e = 3513) 0.3 MG/DL Delfino F AustinRHEUMATOID FACTOR, [id number] 00:00:00* Test Item Value Reference Range Interpretation Comme nts RHEUMATOID FACTOR, QUANT (te st code = 3502) <10 IU/ML Delfino F AustinSEDIMENTATION [id number] 00:00:00* Test Item Value Reference Range Interpretation Comme nts SEDIMENTATION RATE (test cod e = 1017) 117 MM/HOUR Delfino F AustinC-REACTIVE [id number] 00:00:00* Test Item Value Reference Range Interpretation Comme nts C-REACTIVE PROTEIN (test cod e = 3513) 0.3 MG/DL Delfino F AustinRHEUMATOID FACTOR, [id number] 00:00:00* Test Item Value Reference Range Interpretation Comme nts RHEUMATOID FACTOR, QUANT (te st code = 3502) <10 IU/ML Delfino F AustinSEDIMENTATION [id number] 00:00:00* Test Item Value Reference Range Interpretation Comme nts SEDIMENTATION RATE (test cod e = 1017) 117 MM/HOUR Delfino F AustinC-REACTIVE [id number] 00:00:00* Test Item Value Reference Range Interpretation Comme nts C-REACTIVE PROTEIN (test cod e = 3513) 0.3 MG/DL Delfino F AustinRHEUMATOID FACTOR, [id number] 00:00:00* Test Item Value Reference Range Interpretation Comme nts RHEUMATOID FACTOR, QUANT (te st code = 3502) <10 IU/ML Delfino F AustinSEDIMENTATION [id number] 00:00:00* Test Item Value Reference Range Interpretation Comme nts SEDIMENTATION RATE (test cod e = 1017) 117 MM/HOUR Delfino F AustinC-REACTIVE [id number] 00:00:00* Test Item Value Reference Range Interpretation Comme nts C-REACTIVE PROTEIN (test cod e = 3513) 0.3 MG/DL Delfino F AustinRHEUMATOID FACTOR, [id number] 00:00:00* Test Item Value Reference Range Interpretation Comme nts RHEUMATOID FACTOR, QUANT (te st code = 3502) <10 IU/ML Delfino F AustinSEDIMENTATION [id number] 00:00:00* Test Item Value Reference Range Interpretation Comme nts SEDIMENTATION RATE (test cod e = 1017) 117 MM/HOUR Delfino F AustinC-REACTIVE [id number] 00:00:00* Test Item Value Reference Range Interpretation Comme nts C-REACTIVE PROTEIN (test cod e = 3513) 0.3 MG/DL Delfino F AustinRHEUMATOID FACTOR, [id number] 00:00:00* Test Item Value Reference Range Interpretation Comme nts RHEUMATOID FACTOR, QUANT (te st code = 3502) <10 IU/ML Delfino F AustinSEDIMENTATION [id number] 00:00:00* Test Item Value Reference Range Interpretation Comme nts SEDIMENTATION RATE (test cod e = 1017) 117 MM/HOUR Delfino F AustinC-REACTIVE [id number] 00:00:00* Test Item Value Reference Range Interpretation Comme nts C-REACTIVE PROTEIN (test cod e = 3513) 0.3 MG/DL Delfino F AustinRHEUMATOID FACTOR, [id number] 00:00:00* Test Item Value Reference Range Interpretation Comme nts RHEUMATOID FACTOR, QUANT (te st code = 3502) <10 IU/ML Delfino F AustinSEDIMENTATION [id number] 00:00:00* Test Item Value Reference Range Interpretation Comme nts SEDIMENTATION RATE (test cod e = 1017) 117 MM/HOUR Delfino F AustinC-REACTIVE [id number] 00:00:00* Test Item Value Reference Range Interpretation Comme nts C-REACTIVE PROTEIN (test cod e = 3513) 0.3 MG/DL Delfino F AustinC-REACTIVE [id number] 00:00:00* Test Item Value Reference Range Interpretation Comme nts C-REACTIVE PROTEIN (test cod e = 3513) 0.3 MG/DL Consult Notes Date/Time Note Provider Source 2024-06-04 [...] Pt seen in conjunction with occupation therapy ([facility]) due to pt's anticipated limited activity tolerance. [...] Coronary atherosclerosis of unspecified type of vessel, ambler or graft 02/11/2013 heart attack Genital warts [...] mobility and Repositioning Provided COMMUNICATION Primary Language: [place] Able to Verbalize needs: Yes Vision:needs big [...] primary therapist[place] [phone] for questions or concerns. T [facility] 2024-06-04 09:10:00 Associated Order(s): CONSULT ADULT OCCUPATIONAL THERAPY OT GENERAL EVALUATION Consult received via [employer], EMR reviewed and evaluation completed 06/04/24. Patient [...] my care and that I had a ltzq-nr-gwsj encounter with this patient on: 06/04/24 . 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 Romie Aleman OT [facility] 2023-05-19 10:11:14 Associated Order(s): CONSULT CARDIOLOGY [facility] Cardiology Consult PCP: Jt Orta [facility] Date of Service: 05/19/2023 CHIEF COMPLAINT/reason for consult: Troponin elevation HISTORY OF PRESENT ILLNESS This is a 58 years old female with past medical history of HIV, hypertension, hyperlipidemia, possible CAD etc. She came to [facility] due to cough and dyspnea. She was found to have COPD exacerbation. Labs showed troponin elevation and TAIWO. Denies chest pain. No acute EKG changes. Echocardiogram showed hyperdynamic left ventricle with ejection fraction over 65%. Moderate aortic stenosis noted. PAST MEDICAL HISTORY Past Medical History: Diagnosis Date Coronary atherosclerosis of unspecified type of vessel, ambler or graft 02/11/2013 heart attack Genital warts [...] or Shortness of Breath. 8.5 g 0 pngcruojp-aodnvzrl-utlyfsz ala 50-200-25 mg tablet Take 1 tablet [...] injury) Aortic stenosis 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 COPD exacerbation-continue antibiotics, [...] statins. Continue metoprolol. Follow-up with his primary bladder tier. Possible CAD-she denies coronary intervention. Recommend to [...] further assistance. James Stacy MD, FACC, AUSTYN Cafeteria Aide Division of Cardiovascular Medicine [facility] - Health History and Physical Notes Date/Time Note Provider Source 2024-06-03 17:12:08 AURELIA Santosit H&P PCP: Jt Schumacher [facility] Date of Service: 06/03/2024 CHIEF COMPLAINT: chest [...] her medications are managed by sister. At [facility]: Vitals: BP 149/92, HR 80s, RR 17-20, [...] - telemetry Uncontrolled HIV (CD4 104, VL [id number], 2023, on Biktarvy) Aox2 without any acute [...] entities. She says she recently saw a bladder tier in [place] and had a procedure that she describes [...] resident's note for additional details. INTERNAL MEDICINE [facility] 2023-05-16 23:13:44 Medicine History & Physical Date [...] or Shortness of Breath. 8.5 g 0 kleqeiepw-hkmdjzpd-gxykicz ala 50-200-25 mg tablet Take 1 tablet [...] Coronary atherosclerosis of unspecified type of vessel, ambler or graft 02/11/2013 heart attack Genital warts [...] Q6HPRN, Kvng Roberson DO, 650 mg at 04/04/24 2017 albuterol (VENTOLIN) inhaler 2 Puff, 2 [...] Lefty Abreu MD, 10 mg at 05/16/23 221 [START ON 05/17/2023] efavirenz (SUSTIVA) tablet 600 [...] 40 mg, 40 mg, Oral, DAILY, Kvng Roberson, sodium chloride (NS) injection 5 mL, 5 [...] MEDICINE STAFF [facility] Notes Date/Time Note Provider Source [facility]2025-09-16 00:00:00 [facility]2025-09-03 00:00:00 [facility]2025-08-26 00:00:00 [facility]2025-08-20 10:27:35 Called patient to schedule received no answer and mailbox was full and couldn't leave a message Parker JimenesSelect [facility] Specialty Hospital [facility] YoungstownPieohs5050-12-17 00:00:00 [facility]2025-08-06 14:07:49 Copied from [facility] #[id number]. Topic: Appointment - Schedule Appointment >> Sep 16, 2024 2:06 PM Patient Assistant Athletic Trainer wrote: Patient Charito Quiñonez called to schedule an appointment with oral surgery. Ruthann HornSelect [facility]stownSezyzd3311-69-76 00:00:00 Delfino Piper [facility]2025-07-01 00:00:00 Delfino Feliz [facility]2025-06-26 00:00[facility]00 [facility]2025-05-22 15:08:05 Mailbox full See case mgmt note 06/08/24 Appointments Nursing Interventions: Advised patient to make appointment (Becky will schedule an appointment with external PCP this week.) Has the patient kept scheduled appointments due by today?: Not applicable Nursing Interventions: Advised to schedule with specialist (HFU team emailed for scheduling assistance with Cardiology.) Josephine Gibbs [facility] UniversityQgghbp6573-18-81 00:00:00 Delfino Piper [facility]2025-05-14 09:30:40 Called patient and left voicemail to notify the pt of the need for an appointment for medication refills [facility]owellDxwirk2816-00-87 16:46:39 Patient should seek any additional refills with her PCP or with her local bladder tier. She was transferred here from an outside ED but does not get regular care from us. IM-INFECTIOUS DISEASE STAFFSelect Medical Specialty Hospital - YoungstownYaftop9259-90-02 10:25:15 Requested Prescriptions Pending Prescriptions Disp Refills FUROSEMIDE 20 mg tablet [Pharmacy Med Name: FUROSEMIDE 20 MG TABLET] 90 tablet 1 Sig: TAKE 1 TABLET BY MOUTH EVERY DAY IN THE MORNING Last Office Visit: Hospital Admission Last refill on-06/05/2024 #30 no refills Next office visit scheduled on none Refill Routed to provider per Ambulatory guidelines. Please review refill request. Bertha Guerrier [facility] HospitalUeslmo4433-90-96 00:00:00 Delfino Piper [facility]2025-04-25 07:54:52 Problem: Discharge Planning Goal: Adequate for [...] Patent airway Outcome: Progressing as expected Linda Verdugo [facility] UniversityLoghzp7112-26-28 22:43:01 06/04/24 2240 Broncho Score Smoking History 0 Surgical History 2 CXR 0 Breath Sounds 2 Cough 2 Respiratory Condition 0 O2 1 Broncho Score 7 Broncho Interpretation 7 -- Triage 4 - Bronchodilator TID & PRN Respiratory Care Services Bronchodilator Treatment Plan Assessment DAILY ASSESSMENT Date: 06/04/24 I assessed, Charito Libby Alec using the bronchodilator assessment tool and scored this patient at 7 with a triage number of 4, which has a bronchodilator treatment plan of TID & PRN. The next protocol scoring assessment will be in 24 hours. Please contact the respiratory tennis desk team member at [phone] if you have any questions or concerns. BRONCHO SCORE SHEET Tadeo Reno RTSelect [facility] Specialty Hospital [facility] YoungstownHwhmyt1210-55-79 22:39:37 A patient w/ normal wob. [facility]stownQuxumv6443-43-99 12:25:26 Problem: Discharge Planning Goal: Adequate for [...] output Outcome: Progressing as expected Brea Shaver RNSelect Medical Specialty Hospital - YoungstownJibrci9302-99-42 18:57:00 Summary: Bronchodilator Protocol Respiratory Care Services Bronchodilator Treatment Plan Assessment INITIAL OR TITRATION Date: 06/03/24 I assessed, Charito Quiñonez using the bronchodilator assessment tool and scored this patient at 6 with a triage number of 4, which has a bronchodilator treatment plan of TID & PRN. The next protocol scoring assessment will be in 24 hours. Please contact the respiratory tennis desk team member at [phone] if you have any questions or concerns. BRONCHO SCORE SHEET Problem list: Patient Active Problem List Diagnosis HIV (human immunodeficiency virus infection) Genital warts H/O: hysterectomy Obesity (BMI 30-39.9) Medically noncompliant Thrush Bacteremia Murmur, cardiac LGSIL Pap smear of vagina Acute cough COPD exacerbation Troponin I above reference range Primary hypertension Other hyperlipidemia TAIWO (acute kidney injury) Aortic stenosis 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 Shortness of breath [...] finding. Impression: No acute cardiopulmonary finding. RL: [id number] End of Report Surgical History: Past Surgical History: Procedure Laterality Date BACK SURGERY HYSTERECTOMY PTCA/STENT 06/03/24 1857 Broncho Score Smoking History 1 Surgical History 2 CXR 0 Breath Sounds 2 Cough 1 Respiratory Condition 0 O2 0 Broncho Score 6 Broncho Interpretation 6 -- Triage 4 - Bronchodilator TID & PRN Barbara Doty RTSelect Medical Specialty Hospital - YoungstownCfvltx9062-02-12 18:17:28 Problem: Discharge Planning Goal: Adequate for [...] Absence of falls Outcome: Progressing as expected [facility]Pcdyhj4245-70-00 00:00:00 [facility]2025-04-02 00:00:00 [facility]2025-03-27 00:00:00 [facility]2025-03-25 00:00:00 [facility]2025-02-27 00:00:00 [facility]2025-02-26 00:00:00 [facility]2025-01-27 00:00:00 [facility]2025-01-15 00:00:00 [facility]2024-12-27 00:00:00 [facility]2024-12-02 00:00:00 [facility]2024-11-20 00:00:00 [facility]2024-10-17 00:00:00 [facility]2024-10-08 00:00:00 [facility]2024-09-21 00:00:00 [facility]2024-08-28 00:00:00 [facility]2024-08-12 00:00:00 [facility]2024-07-30 00:00:00 [facility]2024-07-17 00:00:00 [facility]2024-07-11 00:00:00 [facility]2024-06-28 00:00:00 [facility]2024-06-12 00:00:00 [facility]2024-05-28 00:00:00 [facility]2024-04-23 00:00:00 [facility]2024-04-10 08:57:37 TRANSITIONAL CARE MANAGEMENT ASSESSMENT 05/22/2023 Charito Quiñonez [id number] Charito Quiñonez is a 58 year old Black or female was admitted on 05/16/23 to [facility], [facility] MED SURG. She was discharged [...] mg twice daily No linked episodes TCM Egi-hzzu-pi-face outreach documentation: CM made follow up call to patient post-discharge. Phone rings with no answer and no voicemail. Two attempts made to reach patient. Discharge Assessment Chart Assessed: 05/22/23 TCM Outreach Completed: 05/22/23 Future Appointments: [facility]ared[facility] 14:20:10 CM made follow up call to patient post-discharge. No answer and no voicemail. [facility]2024-04-08 15:49:35 Problem: Pain Goal: Control of pain [...] Outcome: Adequate for discharge Pedro Pablo Rios [id number] 13:54:10 Problem: Pain Goal: Control of pain [...] Outcome: Progressing as expected T Valeria Tyler [facility]Mmrrpj8072-58-71 23:51:17 Problem: Pain Goal: Control of pain [...] discharge Outcome: Progressing as expected Marisela Bañuelos [facility]jwejp5892-76-33 12:43:53 Problem: Pain Goal: Control of pain [...] Adequate for discharge Outcome: Progressing as expected [facility]2024-04-06 13:44:06 Problem: Pain Goal: Control of pain [...] Adequate for discharge Outcome: Progressing as expected [facility]2024-04-06 06:26:57 Problem: Pain Goal: Control of pain [...] Adequate for discharge Outcome: Progressing as expected [facility]2024-04-06 01:04:[address] Rosario about pt having generalized wheezing and would benefit from IV steroids, waiting for response. Will continue to monitor. [facility] Argentina Chambers [facility] UniversityVcmrqd8512-83-54 17:16:46 Problem: Pain Goal: Control of pain [...] Impaired Goal: Able to cough effectively 05/17/2023 171 by Molly Pond RN Outcome: [...] Molly Pond RN Outcome: Progressing as expected [facility]2024-04-04 21:20:00 Problem: Pain Goal: Control of pain [...] Adequate for discharge Outcome: Progressing as expected [facility] Hanny Moran [facility] University[facility]kyasj1992-27-83 16:51:01 Problem: Pain Goal: Control of pain [...] Adequate for discharge Outcome: Progressing as expected [facility]2024-04-04 15:24:48 Report given to HALLE Barnesauto heater mechanic Audrey Hitchcock [facility] UniversityYxnnuu8324-71-22 12:06:08 Patient states that she feels short of breath. Fortino Morales [facility] UniversityOtgang8825-22-94 12:04:19 Patients states "I have a cold, I have a cough and it hurts in my back up to my head. And I am chaffed between my legs. I need some antibiotics." Patients respirations are labored with accessory muscle usage, oxygen saturation 82% on room air. [facility] 12:34:58 PT D/C home. GCS15, VS stable, no ataxia noted. Given two prescriptions and D/C paperwork. S/S relieved at this time. Pt ambulatory at time of discharge. Pt educated on leg pain, med usage, follow up care, s/s worsening condition. Pt verbalized understanding. LE CASER Susan Valdez [facility] UniversityNlfzhb7812-98-15 10:40:01 Patient here for pain in the left leg, states after she walks she gets tired fast; rash on her back and needs a refill on her albuterol inhaler. LE CASER Fortino Morales [place] [id number] 14:30:17 Pt given printed and verbal discharge [...] gait, in no apparent distress, Dayna Babcock [facility] UniversityYqrxsx8053-13-51 11:41:55 Pt arrived via transit bus with c/o back pain s/p fall 1 week ago. States she has not medicated forthe pain. Pt is also requesting refills of her nasal spray and inhaler. Rosalia Burton [facility]
== END 2024-11-18 12:37 | disposition home or self-care (01) ==
LOC: ER 11:17
DX: J44.9 Chronic obstructive pulmonary disease, unspecified (principal); I10 Essential (primary) hypertension; I50.9 Heart failure, unspecified; Z21 Asymptomatic human immunodeficiency virus [HIV] infection status
CPT/HCPCS: 99283

== ENCOUNTER 2024-11-21 09:28 | Inpatient (IN) | payer OTHER ==
[2024-11-21] MEDS ORDERED: LEVALBUTEROL 1.25 MG/3 ML NEB ONE (09:56)
[2024-11-21] MEDS ORDERED: METHYLPREDNISOLONE 125 MG INJ ONE (09:56)
--- NOTE | 2024-11-21 10:18 | RAD REPORT ---
EXAMINATION: ONE VIEW CHEST XR CLINICAL INDICATION: COPD TECHNIQUE: Frontal chest projection is submitted. Examination is limited by patient positioning and t echnique. COMPARISON: 07/19/2024 FINDINGS: Prominent emphysematous changes are noted throughout the lung yusuf. Linear opacity in the left midl sharifa with nodularity also present. This may represent atelectasis, scarring or pulmonary nodule. The heart is upper limit of normal in size. No displaced fractures identified. IMPRESSION: COPD without an acute process suspected. The USPSTF recommends annual screening for lung cancer with low-dose computed tomography (LDCT) in ad ults aged 50 to 80 years who have a 20 pack-year smoking history and currently smoke or have quit within the past 15 years. Screening should be discontinued once a person has not smoked for 15 years or develops a health problem that substantially limits life expectancy or the ability or willingness to have curative lung surgery.
[2024-11-21 10:30] LABS: Absolute Lymphocytes (CBC) 1.0 K/uL (0.7-4.9); Hematocrit 43.0 % (36.0-45.0); Hemoglobin 14.0 g/dL (12.0-15.0); MCH 31.8 pg (27.0-35.0); MCHC 32.7 g/dL (32.0-36.0); MCV 97.3 fL (80-100); MPV 9.0 fL (7.6-11.3); Nucleated RBC Absolute Count 0.0 (0-0); Nucleated Red Blood Cells % 0.0 % (0-0); RBC Red Blood Cell Count 4.41 M/uL (3.86-4.86); White Blood Count 5.10 thou/uL (4.3-10.9)
[2024-11-21 10:39] LABS: PT Prothrombin Time 13.4 SECONDS (10-13.0); PTT, Activated Partial Thromb 33.2 SECONDS (27.2-37.4); Protime INR 1.19
[2024-11-21 10:45] LABS: Influenza A Ag Negative; Influenza B Ag Negative; SARS-CoV-2 Antigen Rapid Res Negative (Negative)
[2024-11-21 10:50] LABS: ALT/SGPT 21.0 U/L (13-56); AST/SGOT 17.0 U/L (15-37); Albumin 3.7 g/dL (3.4-5.0); Albumin/Globulin Ratio 0.7 (1.1-1.8); Alkaline Phosphatase 95.0 U/L (45-117); Anion Gap 9.4 mEq/L (5.0-15.0); BUN Blood Urea Nitrogen 24.0 mg/dL (7-18); Globulin 5.1 g/dL (2.3-3.5); Glucose Level 106.0 mg/dL (74-106); NT PRO-BNP 2378.0 pg/mL (<125); Potassium 3.4 mEq/L (3.5-5.1)
[2024-11-21 10:52] LABS: Troponin High Sensitivity 244.2 pg/mL (<58.9)
--- NOTE | 2024-11-21 10:55 | EDPHYS ---
Physician Documentation [facility] Name: Charito Michael Age: 59 yrs Sex: Female : 1965 Arrival Date: 11/21/2024 Time: 09:28 Bed 14 Private MD: ED Physician Ac Nixon HPI: 11/21 10:03 This 59 yrs old Black Female presents to ER via EMS with complaints of Shortness Of rn Breath. 10:03 Patient reports shortness of breath, worse over the last few days. States EMS came to rn home yesterday but she did not want to be transported. Increased shortness of breath today. Reports cough, no hemoptysis. No swelling. States on 4 L oxygen at home.. Historical: - Allergies: 09:36 NKA; bp - PMHx: 09:36 Back pain; CHF; Chronic pain; COPD; HIV; Hypercholesterolemia; Hypertension; seasonal bp allergies; - PSHx: 09:36 Total abdominal hysterectomy; bp - Immunization history:: Adult Immunizations up to date. - Infectious Disease History:: Denies. - Social history:: Smoking status: unknown. - Family history:: not pertinent. - Hospitalizations: : No recent hospitalization is reported. ROS: 10:03 Constitutional: Negative for fever, chills, and weight loss, Cardiovascular: Negative rn for chest pain, palpitations, and edema, Respiratory: Positive for shortness of breath Abdomen/GI: Negative for abdominal pain, nausea, vomiting, diarrhea, and constipation, MS/Extremity: Negative for injury and deformity, Skin: Negative for injury, rash, and discoloration, Neuro: Negative for headache, weakness, numbness, tingling, and seizure, Exam: 10:03 Constitutional: Thin female with mild tachypnea Cardiovascular: Regular rate and rn rhythm. No pulse deficits. Respiratory: Mild tachypnea noted with faint expiratory wheezing. No retractions Abdomen/GI: Soft, non-tender MS/ Extremity: Pulses equal, no cyanosis. Neuro: Awake and alert, GCS 15 10:26 ECG was reviewed by the Attending Physician. rn Vital Signs: 09:35 BP 128 / 70; Pulse 88; Resp 20; Temp 98; Pulse Ox 96% on 4 lpm NC; bp 11:00 BP 128 / 71; Pulse 74; Resp 16; Pulse Ox 97% ; bp 12:00 BP 135 / 78; Pulse 80; Resp 18; Pulse Ox 94% ; bp 13:00 BP 140 / 79; Pulse 84; Resp 18; Pulse Ox 96% ; bp 14:00 BP 134 / 85; Pulse 87; Resp 18; Pulse Ox 95% ; bp MDM: 09:36 Medical Screening Exam initiated rn 10:26 Independent interpretation of the following test(s) in the Emergency Department X-Ray: rn My interpretation is Chest x-ray images negative for pneumonia or pneumothorax per my interpretation. conveyor monitor: rate is 86 beats/min, Rhythm is normal sinus rhythm, regular, with no ectopy, Interpretation: normal rate, normal rhythm. 10:53 Differential diagnosis: CHF exacerbation, Chronic Obstructive Pulmonary Disease rn Myocardial Infarction pneumonia, Pneumothorax pulmonary edema. Data reviewed: vital signs, nurses notes, lab test result(s), EKG, radiologic studies, plain films, and as a result, I will admit patient. Consideration of Admission/Observation Patient was admitted/placed on observation. Escalation of care including admission/observation considered. Care significantly affected by the following chronic conditions: Congestive Heart Failure, Chronic Obstructive Pulmonary Disease. Counseling: I had a detailed discussion with the patient and/or guardian regarding the historical points, exam findings, and any diagnostic results supporting the discharge/admit diagnosis, lab results, radiology results, the need for further work-up and treatment in the hospital. Response to treatment: the patient's symptoms have mildly improved after treatment, and as a result, I will admit patient. 11/21 09:37 Order name: BNP; Complete Time: 10:53 rn 11/21 09:37 Order name: Blood Culture Adult (2) rn 11/21 09:37 Order name: CBC with Diff; Complete Time: 10:53 rn 11/21 09:37 Order name: CMP; Complete Time: 10:53 rn 11/21 09:37 Order name: Lactate w/ 2H reflex if indic.; Complete Time: 10:53 rn 11/21 09:37 Order name: Protime (+inr); Complete Time: 10:53 rn 11/21 09:37 Order name: Ptt, Activated; Complete Time: 10:53 rn 11/21 09:37 Order name: Troponin HS; Complete Time: 10:53 rn 11/21 09:37 Order name: COVID-19 Ag + Flu A+B Ag; Complete Time: 10:53 rn 11/21 13:35 Order name: CBC with Automated Diff EDMS 11/21 13:35 Order name: CBC with Automated Diff EDMS 11/21 13:35 Order name: Comprehensive Metabolic Panel EDMS 11/21 13:36 Order name: Comprehensive Metabolic Panel EDMS 11/21 13:36 Order name: Lipid Profile EDMS 11/21 13:36 Order name: Lipid Profile EDMS 11/21 13:36 Order name: Protime (+INR) EDMS 11/21 13:36 Order name: Protime (+INR) EDMS 11/21 13:36 Order name: PTT, Activated Partial Thromb EDMS 11/21 13:36 Order name: PTT, Activated Partial Thromb EDMS 11/21 13:36 Order name: Troponin High Sensitivity EDMS 11/21 13:36 Order name: Troponin High Sensitivity EDMS 11/21 13:36 Order name: Troponin High Sensitivity EDMS 11/21 13:39 Order name: Miscellaneous Test Lab EDME 11/21 09:37 Order name: Chest Single View XRAY; Complete Time: 10: rn 11/21 13:35 Order name: Echo with Doppler EDMS 11/21 13:35 Order name: CONS Physician Consult EDMS 11/21 09:37 Order name: Accucheck; Complete Time: 10: rn 11/21 09:37 Order name: Cardiac monitoring; Complete Time: 10: rn 11/21 09:37 Order name: EKG - Nurse/Tech; Complete Time: 10: rn 11/21 09:37 Order name: IV Saline Lock - Large Bore; Complete Time: 10: rn 11/21 09:37 Order name: Labs collected and sent; Complete Time: 10: rn 11/21 09:37 Order name: O2 Per Protocol; Complete Time: 10: rn 11/21 09:37 Order name: O2 Sat Monitoring; Complete Time: 10: rn 11/21 09:37 Order name: Vital Signs; Complete Time: : rn EC: Rate is 78 beats/min. Rhythm is regular. QRS [place] is Normal. QRS interval is normal. QT rn interval is normal. No Q waves. T waves are Normal. No ST changes noted. Clinical impression: NSR w/ Non-specific ST/T Changes. Interpreted by me. Reviewed by me. Administered Medications: 10:12 Drug: MethylPrednisoLONE IVP 125 mg IVP once Route: IVP; Site: right antecubital; bp 14:22 Follow up: Response: No adverse reaction bp 10:12 Drug: Levalbuterol Inhalation 1.25 mg Inhalation once Route: Inhalation; bp Disposition Summary: 11/21/24 10:54 Hospitalization Ordered Notes: Hospitalization Status: Observation rn Provider: Cyndee Hylton rn Location: Telemetry/MedSurg (Inpatient) rn Condition: Stable rn Problem: an acute exacerbation rn Symptoms: have improved rn Bed/Room Type: Standard rn Room Assignment: 212(11/21/24 14:02) sp Diagnosis - Unspecified combined systolic (congestive) and diastolic (congestive) heart failure rn - COPD/ Chronic obstructive pulmonary disease with (acute) exacerbation rn Forms: - Medication Reconciliation Form rn - SBAR form rn - Leadership Thank You Letter rn Signatures: Dispatcher [employer] Emilee Ramey Roman, MD MD rn Peltier, Brian, RN RN bp Corrections: (The following items were deleted from the chart) 13:41 10:54 rn sp 14:02 13:41 211 sp sp
--- NOTE | 2024-11-21 10:55 | ER ---
Nurse's Notes [facility] Name: Charito Michael Age: 59 yrs Sex: Female : 1965 Arrival Date: 11/21/2024 Time: 09:28 Bed 14 Private MD: Diagnosis: Unspecified combined systolic (congestive) and diastolic (congestive) heart failure;COPD/ Chronic obstructive pulmonary disease with (acute) exacerbation Presentation: 11/21 09:35 Chief complaint: EMS states: SOB SINCE LAST PM. Coronavirus screen: At this time, the bp client does not indicate any symptoms associated with coronavirus-19. Ebola Screen: No symptoms or risks identified at this time. Initial Sepsis Screen: Does the patient meet any 2 criteria? No. Patient's initial sepsis screen is negative. Does the patient have a suspected source of infection? No. Patient's initial sepsis screen is negative. Risk Assessment: Do you want to hurt yourself or someone else? Patient reports no desire to harm self or others. Onset of symptoms is unknown. Care prior to arrival: Medication(s) given: Albuterol Neb x 1. 09:35 Method Of Arrival: EMS: [facility] bp 09:35 Acuity: GIULIANO 3 bp Triage Assessment: 09:36 General: Appears in no apparent distress. Behavior is cooperative, appropriate for age, bp anxious. Pain: Denies pain. EENT: No deficits noted. Neuro: No deficits noted. Cardiovascular: Rhythm is sinus rhythm. Respiratory: Reports shortness of breath Onset: The symptoms/episode began/occurred yesterday, the patient has mild shortness of breath. GI: No signs and/or symptoms were reported involving the gastrointestinal system. : No signs and/or symptoms were reported regarding the genitourinary system. Derm: No deficits noted. Musculoskeletal: No deficits noted. Historical: - Allergies: 09:36 NKA; bp - PMHx: 09:36 Back pain; CHF; Chronic pain; COPD; HIV; Hypercholesterolemia; Hypertension; seasonal bp allergies; - PSHx: 09:36 Total abdominal hysterectomy; bp - Immunization history:: Adult Immunizations up to date. - Infectious Disease History:: Denies. - Social history:: Smoking status: unknown. - Family history:: not pertinent. - Hospitalizations: : No recent hospitalization is reported. Screenin:00 [facility] ED Fall Risk Assessment (Adult) History of falling in the last 3 months, bp including since admission No falls in past 3 months (0 pts) Confusion or Disorientation No (0 pts) Intoxicated or Sedated No (0 pts) Impaired Gait No (0 pts) Mobility Assist Device Used No (0 pt) Altered Elimination No (0 pt) Score/Fall Risk Level 0 - 2 = Low Risk Oriented to surroundings. Abuse screen: Denies threats or abuse. Denies injuries from another. Nutritional screening: No deficits noted. Tuberculosis screening: No symptoms or risk factors identified. Assessment: 10:00 General: SEE TRIAGE NOTE. bp 12:00 Cardiovascular: Rhythm is sinus rhythm. Respiratory: Airway is patent Respiratory bp effort is even, unlabored, Breath sounds with wheezes. 14:00 Reassessment: REPORT SENT TO 212. bp Vital Signs: 09:35 BP 128 / 70; Pulse 88; Resp 20; Temp 98; Pulse Ox 96% on 4 lpm NC; bp 11:00 BP 128 / 71; Pulse 74; Resp 16; Pulse Ox 97% ; bp 12:00 BP 135 / 78; Pulse 80; Resp 18; Pulse Ox 94% ; bp 13:00 BP 140 / 79; Pulse 84; Resp 18; Pulse Ox 96% ; bp 14:00 BP 134 / 85; Pulse 87; Resp 18; Pulse Ox 95% ; bp ED Course: 09:35 Patient arrived in ED. bp 09:36 Ac Nixon MD is Attending Physician. rn 09:36 Triage completed. bp 09:36 Arm band placed on. bp 09:41 Brian Mcgee, RN is Primary Nurse. bp 10:03 Chest Single View XRAY In Process Unspecified. EDMS 10:12 Inserted saline lock: 22 gauge in right antecubital area, using aseptic technique. bp Blood collected. Flushed with 10 mL NS. 10:12 Initial lab(s) drawn, by me, sent to lab. First set of blood cultures drawn by me, bp Second set of blood cultures drawn by me, EKG done, by ED staff, reviewed by Ac Nixon MD COVID swab sent to lab. Flu and/or RSV swab sent to lab. 10:54 Cyndee Hylton MD is Hospitalizing Provider. rn 11:00 Patient has correct armband on for positive identification. bp 14:21 No provider procedures requiring assistance completed. Patient admitted, IV remains in bp place. Administered Medications: 10:12 Drug: MethylPrednisoLONE IVP 125 mg IVP once Route: IVP; Site: right antecubital; bp 14:22 Follow up: Response: No adverse reaction bp 10:12 Drug: Levalbuterol Inhalation 1.25 mg Inhalation once Route: Inhalation; bp Medication: 14:22 VIS not applicable for this client. bp Outcome: 10:54 Decision to Hospitalize by Provider. rn 14:22 Admitted to Tele accompanied by tech, bp 14:22 Condition: stable 14:22 Instructed on the need for admit, 14:49 Patient left the ED. bp Signatures: Dispatcher [employer] EDAc Deleon MD MD rn Peltier, Brian, RN RN bp
--- OUTSIDE RECORDS SUMMARY | 2024-11-21 10:58 | XMS REPORT | Continuity of Care Document ---
Author Name Unknown Address [address] [facility] [place] [address] [facility] [place] Address [address] [facility] [place] [address] Care Team Providers Care Experimental Worker Name Role Phone Delfino Schumacher [facility] Physician Zaria Orellana Attending Clinician Unavail able Guero Verdugo DDS Attending Clinician [phone] GUERO VERDUGO Attending Clinician UnavailKENJI Bhagat Attending Clinician Unavailable KENJI LORD Attending Clinician Unavailable Spenser Chahal DO Attending Clinician [phone] Atif Jackson Attending Clinician [phone] Abbi Rivera RN Attending Clinician Unava ilKenji Bingham MD Attending Clinician [phone] Doctor Unassigned, [place] Attending Clinician U iván Huerta CLIENT TECHNOLOGIES SPECIALIST, Lianet Funes Attending Clinician [phone] Lena NERI, Lj Bustillos Attending Clinician Unavail able KVNG ROBERSON Attending Clinician Unavailable Ezra GLORIA, Anyi Attending Clinician [phone] Kvng Roberson DO Attending Clinician [phone] GASTON HOBBS Attending Clinician Unavailable Gaston Hobbs MD Attending Clinician [phone] Mark CLIENT TECHNOLOGIES SPECIALIST, Kasandra Attending Clinician [phone] LEE HENDERSON Attending Clinician Unavailab CLARITZA Booth Attending Clinician Unavail able Doctor Unassigned, [place] Attending Clinician U iván Almaguer RN, Jeanine Jones Attending Clinician Unava Guerline Devi MD Attending Clinician [phone] Guero Pantoja Attending Clinician [phone] GUERO MARTINEZ Attending Clinician Unavailable Osman Ware RN Attending Clinician Unavaila harvey RODRIGUEZ Attending Clinician Unavailable Dean_R Attending Clinician Unavailable APOLINAR WEBER Attending Clinician Unavailable Pgy2 Attending Clinician Unavailable Apolinar Weber MD Attending Clinician + [phone] Enedina Mccarty MD Attending Clinician + [phone] BILLY VALERIO Attending Clinician UnavailToby Madden MD Attending Clinician [phone] Delores Garcia MD, A Clinton Attending Clinician +[phone] Billy Valerio MD Attending Clinician [phone] Evette Dunn MA Attending Clinician Unavailab KENNEDI Pop Attending Clinician Unavailable Eduarda GLORIA, Kennedi Islas Attending Clinician + [phone] Mikael Quiroz Attending Clinician + [phone] LJ LIANG Attending Clinician Unavailable Berto WALKER, Lj Petersen Attending Clinician + [phone] MARGARET NUNEZ Attending Clinician Unavailab Margaret Rodgers DO Attending Clinician +[phone] Bonny Morris MD Attending Clinician + [phone] BONNY MORRIS Attending Clinician UnavailTerri Hitchcock Attending Clinician [phone] Francis KNOX Dawn Mirna Attending Clinician [phone] Maggie_A Attending Clinician Unavailable Josse Steele Attending Clinician [phone] JOSSE LOCKHART Attending Clinician UnavailKENJI Morrison Admitting Clinician Unavailable Kenji Lord MD Admitting Clinician +[phone] KVNG ROBERSON Admitting Clinician Unavailable Kvng Roberson DO Admitting Clinician +[phone] GASTON HOBBS Admitting Clinician Unavailable JENNIFER Admitting Clinician Unavailable Av Admitting Clinician Unavailable Tressa ESTRELLA JR Admitting Clinician Unavailtressa Estrella Jr., MD, Tressa Schwartz Admitting Clinician [phone] KENNEDI BLUE Admitting Clinician Unavailable Sammi Admitting Clinician Unavailable Payers Payer Name Policy Type Policy Number Effective Date Expirati on Date Source [facility] DUAL COMP HMO-POS D SNP [id number] 2022 00:00:00 [facility] MCR Dual Complete (HMO-POS D-SNP) [id number] [facility] HEALTH (MEDICARE REPLACEMENT HMO) [id number] 2020 00:00:00 Problems Condition Name Condition Details Condition Category Status Onset Date Resolution Date Last Treatment Date Treating Clinician Comments Source SOB (shortness of breath) SOB (shortness of breath) Disease Active 06-09 00:00: 00 [facility] Shortness of breath Shortness of breath Disease Active 06-03 00:00: 00 [facility] COPD exacerbati on COPD exacerbati on Disease Active 05-18 00:00: 00 [facility] Troponin I above reference range Troponin I above reference range Disease Active 05-18 00:00: 00 [facility] Other hyperlipid emia Other hyperlipid emia Disease Active 05-18 00:00: 00 [facility] TAIWO (acute kidney injury) TAIWO (acute kidney injury) Disease Active 05-18 00:00: 00 [facility] Aortic stenosis Aortic stenosis Disease Active 05-18 00:00: 00 [facility] Coronary artery disease involving pala coronary artery of pala heart without angina pectoris Coronary artery disease involving pala coronary artery of pala heart without angina pectoris Disease Active 05-18 00:00: 00 [facility] Acute cough Acute cough Disease Active 05-15 00:00: 00 [facility] Acute cough Acute cough Disease Active 05-15 00:00: 00 [facility] 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 Active 06-27 00:00: 00 [facility] Bacteremia Bacteremia Disease Active 06-09 00:00: 00 [facility] Medically noncomplia nt Medically noncomplia nt Disease Active 09-02 00:00: 00 [facility] Thrush Thrush Disease Active 09-02 00:00: 00 [facility] Obesity (BMI 30-39.9) Obesity (BMI 30-39.9) Disease Active 05-31 00:00: 00 [facility] Genital warts Genital warts Disease Active 08-25 00:00: 00 [facility] H/O: hysterecto my H/O: hysterecto my Disease Active 08-25 00:00: 00 [facility] [id number] Allergic rhinitis, unspecifie d seasonalit y, unspecifie d trigger Problem [facility] [id number] Mental developmen carmen delay Problem [facility] [id number] History of hepatitis C Problem [facility] [id number] 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) Problem [facility] [id number] HIV disease Problem [facility] [id number] +5th digit eff 11/12/19*St age 1 chronic kidney disease Problem [facility] [id number] Chronic kidney disease, unspecifie d CKD stage Problem [facility] [id number] Essential hypertensi on Problem [facility] [id number] Chronic heart failure with preserved ejection fraction Problem [facility] [id number] Pulmonary emphysema, unspecifie d emphysema type Problem [facility] [id number] Mental disability Problem [facility] [id number] Lumbago with sciatica, right side Problem [facility] [id number] Lumbago with sciatica, left side Problem [facility] [id number] On home O2 Problem Commo n [facility] [id number] Environmen carmen allergies Problem [facility] [id number] Vitamin D deficiency Problem [facility] [id number] Other chronic pain Problem [facility] [id number] Cardiac murmur Problem [facility] [id number] CHRIS (generaliz ed anxiety disorder) Problem [facility] [id number] Mixed hyperlipid emia Problem [facility] [id number] Seasonal allergies Problem [facility] Allergies, Adverse Reactions, Alerts Allergy Name Allergy Type Status Severity Reaction(s) Onset Date Inactive Date Treating Clinician Comments Source NO KNOWN ALLERGIE S Drug Class Active [facility] Social History Social Habit Start Date Stop Date Quantity Comments Source Gender identity [facility] History of Tobacco Use Current Smoker [facility] Sex Assigned At [facility] Alcoholic beverage intake 2024-06-03 00:00:00 2024-06-03 00:00:00 Current non-drinker of alcohol (finding) [facility] Tobacco use and exposure 2024-06-03 00:00:00 2024-06-03 00:00:00 Smokeless tobacco non-user [facility] Alcohol intake 2023-05-16 00:00:00 2023-05-16 00:00:00 Current non-drinker of alcohol (finding) [facility] Exposure to SARS-CoV-2 (event) 2022-03-24 00:00:00 2022-04-03 13:07:00 Not sure [facility] History of Social function 2022-04-03 00:00:00 2022-04-03 00:00:00 [facility] Smoking Status Start Date Stop Date Source Never smoked tobacco [facility] Current Smoker 2023-12-06 00:00:00 [facility] Medications Ordered Medication Name Filled [...] 10-06 00:00: 00 Yes 2mcg/ac tuation Delfino Otra amlodipine 10 mg tablet - 00:00: 00 [...] 20 mg tablet 06-20 00:00: 00 Yes [id number] 20mg TAKE 1 TABLET BY MOUTH EVERY DAY IN THE MORNING [facility] aspirin 81 mg tablet,ruchi yed release 06-09 00:00: 00 Yes mg Delfino Orta albuterol sulfate HFA 90 mcg/actuati on aerosol inhaler 06-09 00:00: 00 Yes mcg/act uation Delfino Orta fluticasone propionate 50 mcg/actuati on nasal spray,suspe nsion 06-09 00:00: 00 Yes 2mcg/ac tuation Delfino Orta aspirin 81 mg chewable tablet 06-06 00:00: 00 Yes [id number] 81mg Take 1 tablet by mouth in the morning. [facility] ipratropium (ATROVENT) 0.02 % nebulizer solution 0.5 mg 06-05 03:44: 07 06-05 22:23 :07 No .5mg 0.5 mg, Inhalation , Q6HPRN, Starting on Sat06/04/24 at 2244, Until Sat06/05/24 at 1723, Routine, Wheezing, Shortness of Breath [facility] ramelteon (ROZEREM) tablet 8 mg ramelteon (ROZEREM) tablet 8 mg 06-05 01:21: 00 06-05 01:41 :00 No 8mg 8 mg, Oral, QHS, 1 dose, First dose on Sat06/04/24 at 2030, Routine [facility] furosemide 20 mg tablet 06-05 00:00: 06-20 00:00 :00 No [id number] 20mg Take 1 tablet by mouth in the morning. [facility] perflutren protein-A microsphr (OPTISON) injection 3 mL 06-04 20:15: 00 06-04 20:15 :00 No [id number] 3mL 3 mL, IV Push, ONCE, 1 dose, On Sat06/04/24 at 1515, Routine [facility] aspirin chewable tablet 81 mg aspirin chewable tablet 81 mg 06-04 14:00: 00 Yes 81mg 81 mg, Oral, DAILY, First dose on Sat06/04/24 at 0900, Until Discontinu ed, Routine [facility] fluticasone propionate 50 mcg/actuati on nasal spray 2 [place] fluticasone propionate 50 mcg/actuati on nasal spray 2 [place] 06-04 14:00: 06-05 22:23 :07 No 2{spray } 2 [place], Nasal, DAILY, First dose on Sat06/04/24 at 0900, Until Discontinu ed, Routine [facility] sulfamethox azole-trime thoprim (BACTRIM DS) 800-160 [...] / Therapy Plan, Specific indication : PJP [facility] bictegrav-e mtricit-ten ofov ala (BIKTARVY) 50-200-25 mg tablet 1 tablet bictegrav-e mtricit-ten ofov ala (BIKTARVY) 50-200-25 mg tablet 1 tablet 06-04 14:00: 00 06-05 22:23 :07 No 1{tbl} 1 tablet, Oral, DAILY, First dose on Sat06/04/24 at 0900, Until Discontinu ed, Routine [facility] ipratropium -albuteroL (DUONEB) 0.5 mg-3 mg(2.5 mg base)/3 mL nebulizer solution 3 mL ipratropium -albuteroL (DUONEB) 0.5 mg-3 mg(2.5 mg base)/3 mL nebulizer solution 3 mL 06-04 13:00: 00 06-05 22:23 :07 No 3mL 3 mL, Inhalation , TID, First dose (after last modificati on) on Sat06/04/24 at 0800, Until Discontinu ed, Routine [facility] glucagon HCL injection 1 mg 06-04 07:35: 49 06-05 22:23 :07 No 1mg 1 mg, Intramuscu lar, PRN, Starting on Sat06/04/24 at 0235, Until Sat06/05/24 at 1723, ANTONIETTA, Low blood sugar, Blood Glucose < or = 70 mg/dL and patient is NPO, unable to swallow or has mental changes. [facility] dextrose 50 % in water (D50W) injection 25 mL 06-04 07:35: 49 06-05 22:23 :07 No 25mL 25 mL, Slow IV Push, PRN, Starting on Sat06/04/24 at 0235, Until Sat06/05/24 at 1723, ANTONIETTA, Blood Glucose < or = 70 mg/dL and patient is NPO, unable to swallow or has mental status changes. [facility] atorvastati n (LIPITOR) tablet 40 mg atorvastati n (LIPITOR) tablet 40 mg 06-04 02:00: 00 06-05 22:23 :07 No 40mg 40 mg, Oral, QHS, First dose on Sat06/03/24 at 2100, Until Discontinu ed, Routine [facility] heparin (porcine) injection 5,000 Units [id number] 4-24 01:00: 00 06-05 22:23 :07 No 5000U 5,000 Units, Subcutaneo us, Q12H, First dose on Sat06/03/24 at 1999, Until Discontinu ed, Routine [facility] ipratropium -albuteroL (DUONEB) 0.5 mg-3 mg(2.5 mg base)/3 mL nebulizer solution 3 mL ipratropium -albuteroL (DUONEB) 0.5 mg-3 mg(2.5 mg base)/3 mL nebulizer solution 3 mL 06-04 01:00: 00 06-04 08:55 :20 No 3mL 3 mL, Inhalation , Q4H, First dose on Sat06/03/24 at 1999, Until Discontinu ed, Routine [facility] magnesium sulfate in water 4 gram/50 mL (8 %) IV Piggyback 4 g magnesium sulfate in water 4 gram/50 mL (8 %) IV Piggyback 4 g 06-04 00:45: 00 06-04 02:51 :00 No 4g 4 g, IV Piggyback, at 25 mL/hr Administer over 120 Minutes, ONCE, 1 dose, On Sat06/03/24 at 1945, Routine [facility] nitroglycer in (NITROSTAT) sublingual tablet 0.4 mg 06-03 21:53: 10 06-05 22:23 :07 No .4mg [facility] acetaminoph en (TYLENOL) tablet 650 mg acetaminoph en (TYLENOL) tablet 650 mg 06-03 21:53: 10 06-05 22:23 :07 No 650mg 650 mg, Oral, Q6HPRN, Starting on Sat06/03/24 at 1653, Until Sat06/05/24 at 1723, Routine, Pain (scale 1-3) [facility] aspirin 81 mg tablet,ruchi yed release [...] 00 No 40mg [facility] baclofen 5 mg tablet 11-01 00:00: [...] 05-20 00:00: 00 06-20 04:59 :00 No [id number] 81mg Take 1 tablet by mouth in the morning for 30 days. [facility] predniSONE 20 mg tablet 05-20 00:00: 00 05-24 04:59 :00 No [id number] 40mg Take 2 tablets by mouth in the morning for 3 days. [facility] celecoxib 400 mg capsule 05-19 16:42: 32 Yes 400mg Take 1 capsule by mouth in the morning. [facility] ALPRAZOLAM ORAL 05-19 16:42: 32 06-03 00:00 :00 No Take by mouth. [facility] atorvastati n (LIPITOR) tablet 40 mg 05-19 02:00: 00 Yes 40mg 40 mg, Oral, QHS, First dose on 05/19/23 at 2100, Until Discontinu ed, Routine [facility] aspirin 81 mg tablet,ruchi yed release 05-19 00:00: 00 Yes mg Delfino Orta PREDNISONE 20MG 05-19 00:00: 00 Yes Delfino Orta budesonide 0.5 mg/2 mL nebulizer solution 05-19 00:00: 00 06-19 04:59 :00 No [id number] 1mg Inhale 4 mL every 12 (twelve) hours for 30 days. [facility] aspirin EC tablet 81 mg 05-18 20:45: 00 Yes 81mg 81 mg, Oral, DAILY, First dose on 05/19/23 at 1545, Until Discontinu ed, Routine [facility] predniSONE (DELTASONE) tablet 40 mg 05-18 14:00: 00 Yes 40mg 40 mg, Oral, DAILY, First dose on 05/19/23 at 0900, Until Discontinu ed, Routine [facility] methylpredn isolone sod succ (SOLU-MEDRO L) injection 125 mg 05-17 10:00: 00 05-17 14:54 :19 No 125mg 125 mg, Slow IV Push, Q6H ABX, First dose on 05/18/23 at 0500, Until Discontinu ed, Routine [facility] budesonide (PULMICORT RESPULE) nebulizer solution 1 mg 05-17 07:00: 00 Yes 1mg 1 mg, Inhalation , Q12H, First dose on 05/18/23 at 0200, Until Discontinu ed, Routine
english faculty member approving non-formul fanta medication : LEFTY ABREU
Gayatri son for non-formul fanta use: Treatment failure with formulary alternativ e [facility] sulfamethox azole-trime thoprim (BACTRIM DS) 800-160 mg per tablet 1 tablet 05-17 01:00: 00 Yes 1{tbl} 1 tablet, Oral, QMON/SAT/ RI AT 1999, First dose on Sat05/17/23 at 1999, Until Discontinu ed, Routine
Reason for Anti-Infec tive: Empiric Non-Surgic al Prophylaxi s
Durat ion of therapy: 5 days [facility] predniSONE 20 mg tablet 05-17 00:00: 00 05-21 04:59 :00 No [id number] 20mg Take 1 tablet by mouth in the morning for 3 days. [facility] NaCl 0.9% (NS) IV infusion 1,000 mL 05-16 21:00: 00 Yes 1000mL at 75 mL/hr, IV Infusion, CONTINUOUS , Starting on Sat05/17/23 at 1600, Until Discontinu ed, Routine [facility] magnesium sulfate in water 2 gram/50 mL (4 %) infusion 2 g 05-16 18:45: 00 05-16 19:50 :00 No 2g 2 g, IV Piggyback, Administer over 60 Minutes, ONCE, 1 dose, On Sat05/17/23 at 1345, Routine [facility] losartan (COZAAR) tablet 100 mg 05-16 14:00: 00 Yes 100mg 100 mg, Oral, DAILY, First dose on Sat05/17/23 at 0900, Until Discontinu ed, Routine [facility] fluconazole (DIFLUCAN) tablet 200 mg 05-16 14:00: 00 Yes 200mg 200 mg, Oral, DAILY, First dose on Sat05/17/23 at 0900, Until Discontinu ed, ANTONIETTA
Re ason for Anti-Infec tive: Empiric Non-Surgic al Prophylaxi s
Durat ion of therapy: 5 days [facility] bictegrav-e mtricit-ten ofov ala (BIKTARVY) 50-200-25 mg tablet 1 tablet 05-16 14:00: 00 Yes 1{tbl} 1 tablet, Oral, DAILY, First dose on Sat05/17/23 at 0900, Until Discontinu ed, Routine
Medicatio n Name: bictegrav/ emtricit/t onofov ala
[place] gth of Therapy: Indefinite
Facult y member approving non-formul fanta medication : LEFTY ABREU
Sharon son for non-formul fanta use: Patient supplied medication
Specif ic indication for non-formul fanta use: hiv
Use patient home supply? Yes
Dos age Form: Capsule [facility] predniSONE (DELTASONE) tablet 40 mg 05-16 14:00: 00 05-17 09:48 :38 No 40mg 40 mg, Oral, DAILY, 5 doses, First dose on Sat05/17/23 at 0900, Last dose on Sat05/21/23 at 0900, Routine [facility] metoprolol tartrate (LOPRESSOR) tablet 12.5 mg 05-16 13:00: 00 Yes 12.5mg 12.5 mg, Oral, BID, First dose on Sat05/17/23 at 0800, Until Discontinu ed, Routine [facility] fluticasone propionate (FLOVENT HFA) 220 mcg/actuati on inhaler 2 Puff 05-16 13:00: 00 Yes 2{puff} 2 Puff, Inhalation , Q12H, First dose on Sat05/17/23 at 0800, Until Discontinu ed, Routine
Is this order for a patient with suspected or confirmed COVID-19 infection? No [facility] cetirizine (ZYRTEC) tablet 10 mg 05-16 03:00: 00 Yes 10mg 10 mg, Oral, QHS, First dose on Sat05/16/23 at 2200, Until Discontinu ed [facility] amLODIPine (NORVASC) tablet 10 mg 05-16 03:00: 00 Yes 10mg 10 mg, Oral, DAILY, First dose on Sat05/16/23 at 2200, Until Discontinu ed, Routine [facility] heparin (porcine) injection 5,000 Units 05-16 03:00: 00 Yes 5000U 5,000 Units, Subcutaneo us, Q8H, First dose on Sat05/16/23 at 2200, Until Discontinu ed, Routine [facility] albuterol (VENTOLIN) inhaler 2 Puff 05-16 02:35: 18 Yes 2{puff} 2 Puff, Inhalation , Q6HPRN, Starting on Sat05/16/23 at 2135, Until Discontinu ed, Routine, Wheezing, Shortness of Breath [facility] ipratropium -albuteroL (DUONEB) 0.5 mg-3 mg(2.5 mg base)/3 mL nebulizer solution 3 mL 05-15 21:00: 00 05-15 18:01 :47 No 3mL 3 mL, Inhalation , QID, First dose on Sat05/16/23 at 1600, Until Discontinu ed, Routine [facility] azithromyci n (ZITHROMAX) 500 mg in NaCl [...] y
Durat ion of therapy: 72 hours [facility] magnesium sulfate in water 2 gram/50 mL (4 %) infusion 2 g 05-15 19:45: 00 05-15 19:54 :00 No 2g 2 g, IV Piggyback, Administer over 60 Minutes, ONCE, 1 dose, On Farrah 05/16/23 at 1445, Routine [facility] albuterol (PROVENTIL) 2.5 mg /3 mL (0.083 %) nebulizer solution 7.5 mg 05-15 19:45: 00 05-15 18:54 :00 No 7.5mg 7.5 mg, Inhalation , ONCE, 1 dose, On Farrah 05/16/23 at 1445, ANTONIETTA [facility] acetaminoph en (TYLENOL) tablet 650 mg 05-15 19:30: 37 Yes 650mg 650 mg, Oral, Q6HPRN, Starting on Fararh 05/16/23 at 1430, Until Discontinu ed, Routine, Pain (scale 1-3) [facility] NaCl 0.9% (NS) bolus infusion 1,000 mL 05-15 18:30: 00 05-15 19:34 :00 No 1000mL at 999 mL/hr, 1,000 mL, IV Infusion, ONCE, 1 dose, On Farrah 05/16/23 at 1330, ANTONIETTA [facility] budesonide (PULMICORT RESPULE) nebulizer solution 1 mg 05-15 18:15: 00 05-15 17:40 :00 No 1mg 1 mg, Inhalation , ONCE, 1 dose, On Farrah 05/16/23 at 1315, Routine [facility] albuterol (PROVENTIL) 2.5 mg /3 mL (0.083 %) nebulizer solution 5 mg 05-15 18:00: 00 05-15 18:03 :00 No 5mg 5 mg, Inhalation , ONCE, 1 dose, On Farrah 05/16/23 at 1315, STAT [facility] methylpredn isolone sod succ (SOLU-MEDRO L) injection 125 mg 05-15 17:31: 00 05-15 17:41 :00 No 125mg 125 mg, Intravenou s, ONCE, 1 dose, On Farrah 05/16/23 at 1245, ANTONIETTA [facility] sodium chloride (NS) injection 5 mL 05-15 17:25: 52 Yes 5mL 5 mL, Intravenou s, PRN, Starting on Sat05/16/23 at 1225, Until Discontinu ed, Routine, IV line flushing [facility] IBUPROFEN 600MG 05-12 00:00: 00 Yes [...] 04-02 00:00: 00 06-25 00:00 :00 No [id number] Delfino Orta TAKE 1 TABLET DAILY. 04-02 00:00: 00 06-25 00:00 :00 No 20 Delfino Orta naproxen (NAPROSYN) tablet 250 mg 03-20 23:00: 00 Yes 250mg 250 mg, Oral, BID MEALS, First dose on Sat03/20/23 at 1700, Until Discontinu ed, Routine [facility] albuterol sulfate HFA 90 mcg/actuati on aerosol inhaler 03-20 00:00: 00 Yes mcg/act uation Delfino Orta TAKE 1 TABLET BY MOUTH TWICE DAILY FOR 20 DOSES TAKE IN THE MORNINGS AND THE EVENINGS 03-20 00:00: 00 Yes Delfino Orta hydrocortis one 1%-nystatin -zinc oxide Oint ointment 03-20 00:00: 00 Yes [id number] Apply to affected area(s) as needed for Dermatitis /Rash. [facility] albuterol 90 mcg/actuati on inhaler 03-20 00:00: 00 Yes [id number] 2{puff} Inhale 2 Puffs every 6 (six) hours as needed for Wheezing or Shortness of Breath. [facility] naproxen 250 mg tablet 03-20 00:00: 00 03-31 05:59 :00 No [id number] 250mg Take 1 tablet by mouth in the morning and 1 tablet in the evening. Take with meals. Do all this for 20 doses. [facility] Qvar RediHaler 80 mcg/actuati on HFA breath activated aerosol 03-07 00:00: 00 Yes mcg/act uation Delfino Orta TAKE 1 TABLET DAILY. 03-07 00:00: 00 Yes 10 Delfino Orta TAKE 1 TABLET DAILY. 03-07 00:00: 00 Yes [id number] Delfino Orta TAKE 1 TABLET BY MOUTH [...] 11-01 00:00: 00 06-25 00:00 :00 No [id number] Delfino Orta TAKE 1 TO 2 TABLETS [...] mcg/actuati on inhaler 09-17 00:00: 00 Yes [id number] 2{puff} Inhale 2 Puffs every 4 (four) hours as needed for Wheezing or Shortness of Breath. [facility] ibuprofen 600 mg tablet 09-17 00:00: 00 06-03 00:00 :00 No [id number] 600mg Take 1 tablet by mouth every 6 (six) hours as needed for Pain (scale 4-6). [facility] IBUPROFEN 600MG 09-17 00:00: 00 06-25 00:00 :00 No Delfino Orta TAKE 1 TABLET DAILY. 09-12 00:00: 00 06-25 00:00 :00 No [id number] Delfino Orta TAKE 1 TABLET DAILY. 09-12 [...] 09-12 00:00: 00 06-25 00:00 :00 No [id number] Delfino Orta INHALE 2 PUFFS TWICE DAILY. [...] 07-04 00:00: 00 06-25 00:00 :00 No [id number] Delfino Orta TAKE 1 TABLET DAILY. 07-04 [...] 07-04 00:00: 00 06-25 00:00 :00 No [id number] Delfino Orta TAKE 1 TABLET DAILY. 07-04 [...] -09 00:00: 00 06-25 00:00 :00 No [id number] Delfino Orta TAKE 1 TABLET DAILY. 3-09 [...] 50-200-25 mg tablet 04-03 00:00: 00 Yes [id number] 1{tbl} Take 1 tablet by mouth in the morning. [facility] sulfamethox azole-trime thoprim 800-160 mg per tablet 04-03 00:00: 00 Yes [id number] 1{tbl} Take 1 tablet by mouth in the morning. [facility] fluconazole 200 mg tablet 04-03 00:00: 00 06-03 00:00 :00 No [id number] 200mg Take 1 tablet by mouth in the morning. [facility] sulfamethox azole 800 mg-trimetho prim 160 [...] 03-30 00:00: 00 06-25 00:00 :00 No [id number] Delfino Orta atorvastati n 40 mg tablet [...] 24 00:00: 00 06-25 00:00 :00 No [id number] Delfino Orta APPLY OINTMENT 3 TO 4 [...] Dose Unknown 2021-02 00:00: 00 No NYSTATIN [id number] ROOPA 2021-02 00:00: 00 No CITALOPRAM HYDROBROMID E 20MG TAB 2021-02 00:00: 00 No TAKE 1 TABLET DAILY. 2021-02 00:00: 00 06-25 00:00 :00 Eva Orta TAKE 1 TABLET AT BEDTIME. 2021-02 [...] 00:00 :00 No Delfino Endy Orta NYSTATIN [id number] ROOPA 2021-02 2 00:00: 00 06-25 00:00 [...] 07-03 00:00: 00 06-25 00:00 :00 No [id number] Delfino Orta sulfamethox azole-trime thoprim 800-160 mg per tablet 06-15 00:00: 00 04-03 00:00 :00 No [id number] 1{tbl} Take 1 tablet by mouth daily. [facility] ALPRAZOLAM ORAL 06-14 17:22: 53 Yes Take by mouth. [facility] metoprolol tartrate 25 mg tablet 06-14 00:00: 00 Yes [id number] 12.5mg Take 0.5 tablets by mouth 2 (two) times daily. [facility] efavirenz 600 mg tablet 06-14 00:00: 00 06-03 00:00 :00 No [id number] 600mg Take 1 tablet by mouth daily. [facility] nystatin 100,000 unit/mL suspension 06-14 00:00: 00 06-03 00:00 :00 No [id number] Take 5 mL by mouth 4 (four) times daily. [facility] amoxicillin -clavulanat e 875-125 mg per tablet 06-14 00:00: 00 04-03 00:00 :00 No [id number] 1{tbl} Take 1 tablet by mouth every 12 (twelve) hours. [facility] lamiVUDine 150 mg tablet 06-14 00:00: 00 04-03 00:00 :00 No [id number] 150mg Take 1 tablet by mouth 2 (two) times daily. [facility] ProAir HFA 90 mcg/actuati on aerosol [...] 00:00: 00 2024- 05-15 00:00 :00 No [id number] Delfino Orta Dose Unknown 2022-0 3-21 00:00: [...] 100 mg tablet 09-30 00:00: 00 Yes [id number] 100mg Take 1 tablet by mouth daily. [facility] Flovent HFA 220 mcg/actuati on aerosol [...] 10 mg tablet 08-12 00:00: 00 Yes [id number] 10mg Take 1 tablet by mouth daily. [facility] atorvastati n 40 mg tablet 08-12 00:00: 00 Yes [id number] 40mg Take 1 tablet by mouth at bedtime. [facility] fluticasone propionate 50 mcg/actuati on nasal spray 07-20 00:00: 00 Yes [id number] 2{spray } Use 2 Sprays in each nostril daily. [facility] fluticasone propionate (FLOVENT HFA) 220 mcg/actuati on inhaler 07-20 00:00: 00 Yes [id number] 2{puff} Inhale 2 Puffs every 12 (twelve) hours. [facility] albuterol 90 mcg/actuati on inhaler 07-20 00:00: 00 03-20 00:00 :00 No [id number] 2{puff} Inhale 2 Puffs every 4 (four) hours as needed for Wheezing or Shortness of Breath. [facility] ibuprofen 800 mg tablet 07-19 00:00: [...] 07-01 00:00: 00 06-03 00:00 :00 No [id number] 600mg Take 1 tablet by mouth every 6 (six) hours as needed for Pain (scale 4-6). [facility] Flovent HFA 220 mcg/actuati on aerosol [...] 0.12 % mouthwash 2018-02 00:00: 00 Yes [id number] 15mL Swish and spit out 15 mL 2 (two) times daily. [facility] chlorhexidi ne (PERIDEX) 0.12 % mouthwash 2018-02 00:00: 00 Yes [id number] 15mL Swish and spit out 15 mL 2 (two) times daily. [facility] allopurinol 100 mg tablet 11-03 00:00: [...] Take 1 Cap by mouth at bedtime. [facility] Flovent HFA 220 MCG/ACT Flovent HFA [...] Orta Influenza Virus Vaccine 2023-07-02 00:00:00 Completed [facility] TDAP 2023-07-02 00:00:00 Completed [facility] Evusheld (Cilgavimab) 2023-07-02 00:00:00 Completed [facility] Evusheld (Tixagevimab) 2023-07-02 00:00:00 Completed [facility] Influenza Virus Vaccine 2023-05-21 00:00:00 Completed [facility] TDAP 2023-05-21 00:00:00 Completed [facility] Evusheld (Cilgavimab) 2023-05-21 00:00:00 Completed [facility] Evusheld (Tixagevimab) 2023-05-21 00:00:00 Completed [facility] Influenza Virus Vaccine 2023-05-16 12:13:00 Completed [facility] TDAP 2023-05-16 12:13:00 Completed [facility] Evusheld (Cilgavimab) 2023-05-16 12:13:00 Completed [facility] Evusheld (Tixagevimab) 2023-05-16 12:13:00 Completed [facility] Influenza Virus Vaccine 2023-03-20 10:44:00 Completed [facility] TDAP 2023-03-20 10:44:00 Completed [facility] Evusheld (Cilgavimab) 2023-03-20 10:44:00 Completed [facility] Evusheld (Tixagevimab) 2023-03-20 10:44:00 Completed [facility] Hep A-Hep B Hep A-Hep B [...] Delfino Orta Evusheld (Cilgavimab) 2021-06-13 00:00:00 Completed [facility] Evusheld (Tixagevimab) 2021-06-13 00:00:00 Completed [facility] Evusheld (Cilgavimab) 2021-06-13 00:00:00 Completed [facility] Evusheld (Tixagevimab) 2021-06-13 00:00:00 Completed [facility] Evusheld (Cilgavimab) 2021-06-13 00:00:00 Completed [facility] Evusheld (Tixagevimab) 2021-06-13 00:00:00 Completed [facility] Evusheld (Cilgavimab) 2021-06-13 00:00:00 Completed [facility] Evusheld (Tixagevimab) 2021-06-13 00:00:00 Completed [facility] Evusheld (Cilgavimab) 2021-06-13 00:00:00 Completed [facility] Evusheld (Tixagevimab) 2021-06-13 00:00:00 Completed [facility] Evusheld (Cilgavimab) 2021-06-13 00:00:00 Completed [facility] Evusheld (Tixagevimab) 2021-06-13 00:00:00 Completed [facility] Evusheld (Cilgavimab) 2021-06-13 00:00:00 Completed [facility] Evusheld (Tixagevimab) 2021-06-13 00:00:00 Completed [facility] Evusheld (Cilgavimab) 2021-06-13 00:00:00 Completed [facility] Evusheld (Tixagevimab) 2021-06-13 00:00:00 Completed [facility] Evusheld (Cilgavimab) 2021-06-13 00:00:00 Completed [facility] Evusheld (Tixagevimab) 2021-06-13 00:00:00 Completed [facility] Evusheld (Cilgavimab) 2021-06-13 00:00:00 Completed [facility] Evusheld (Tixagevimab) 2021-06-13 00:00:00 Completed [facility] Evusheld (Cilgavimab) 2021-06-13 00:00:00 Completed [facility] Evusheld (Tixagevimab) 2021-06-13 00:00:00 Completed Moderna COVID-19 [...] Completed Delfino Orta TDAP 2014-08-19 00:00:00 Completed [facility] TDAP 2014-08-19 00:00:00 Completed [facility] TDAP 2014-08-19 00:00:00 Completed [facility] TDAP 2014-08-19 00:00:00 Completed [facility] TDAP 2014-08-19 00:00:00 Completed [facility] TDAP 2014-08-19 00:00:00 Completed [facility] TDAP 2014-08-19 00:00:00 Completed [facility] TDAP 2014-08-19 00:00:00 Completed [facility] TDAP 2014-08-19 00:00:00 Completed [facility] TDAP 2014-08-19 00:00:00 Completed [facility] TDAP 2014-08-19 00:00:00 Completed [facility] Influenza Virus Vaccine 2012-01-21 00:00:00 Completed [facility] Influenza Virus Vaccine 2012-01-21 00:00:00 Completed [facility] Influenza Virus Vaccine 2012-01-21 00:00:00 Completed [facility] Influenza Virus Vaccine 2012-01-21 00:00:00 Completed [facility] Influenza Virus Vaccine 2012-01-21 00:00:00 Completed [facility] Influenza Virus Vaccine 2012-01-21 00:00:00 Completed [facility] Influenza Virus Vaccine 2012-01-21 00:00:00 Completed [facility] Influenza Virus Vaccine 2012-01-21 00:00:00 Completed [facility] Influenza Virus Vaccine 2012-01-21 00:00:00 Completed [facility] Influenza Virus Vaccine 2012-01-21 00:00:00 Completed [facility] Influenza Virus Vaccine 2012-01-21 00:00:00 Completed [facility] Vital Signs Vital Name Observation Time Observation Value Comments S ource Systolic blood pressure 2024-06-05 20:04:00 125 mm[Hg] [facility] Diastolic blood pressure 2024-06-05 20:04:00 67 mm[Hg] [facility] Heart rate 2024-06-05 20:04:00 83 /min [facility] Body temperature 2024-06-05 20:04:00 36.11 Roma [facility] Respiratory rate 2024-06-05 20:04:00 18 /min [facility] Oxygen saturation in Arterial blood by Pulse oximetry 2024-06-05 20:04:00 100 /min [facility] Body height 2024-06-04 01:00:00 160 cm [facility] Body weight 2024-06-03 21:26:00 57.1 kg [facility] BMI 2024-06-03 21:26:00 22.30 kg/m2 [facility] height 2023-11-11 15:00:00 62.5 [in_i] Comm on [facility] weight 2023-11-11 15:00:00 118.2 [lb_av] Co mmon [facility] temperature 2023-11-11 15:00:00 97.8 [degF] Com mon [facility] bmi 2023-11-11 15:00:00 21.27 kg/m2 Comm on [facility] oximetry 2023-11-11 15:00:00 93 % Commo n [facility] respiratory rate 2023-11-11 15:00:00 18 /min Common [facility] blood pressure systolic 2023-11-11 15:00:00 114 mm[Hg] Common [facility] blood pressure diastolic 2023-11-11 15:00:00 68 mm[Hg] Common [facility] Respiratory rate 2023-05-20 20:47:00 16 /min [facility] Oxygen saturation in Arterial blood by Pulse oximetry 2023-05-20 20:47:00 97 /min [facility] Systolic blood pressure 2023-05-20 16:21:00 136 mm[Hg] [facility] Diastolic blood pressure 2023-05-20 16:21:00 81 mm[Hg] [facility] Heart rate 2023-05-20 16:21:00 81 /min [facility] Body temperature 2023-05-20 16:21:00 36.17 Roma [facility] Body weight 2023-05-20 08:12:00 57.063 kg [facility] BMI 2023-05-20 08:12:00 22.28 kg/m2 [facility] Body height 2023-05-16 20:58:00 160 cm [facility] Systolic blood pressure 2023-03-20 16:43:00 154 mm[Hg] [facility] Diastolic blood pressure 2023-03-20 16:43:00 87 mm[Hg] [facility] Heart rate 2023-03-20 16:43:00 77 /min [facility] Body temperature 2023-03-20 16:43:00 36.39 Roma [facility] Respiratory rate 2023-03-20 16:43:00 16 /min [facility] Body height 2023-03-20 16:43:00 160 [facility] 2023-03-20 16:43:00 51.71 kg [facility] BMI 2023-03-20 16:43:00 20.19 kg/m2 [facility] Oxygen saturation in Arterial blood by Pulse oximetry 2023-03-20 16:43:00 100 /min [facility] Systolic blood pressure 2022-09-17 19:28:58 166 mm[Hg] [facility] Diastolic blood pressure 2022-09-17 19:28:58 103 mm[Hg] [facility] Heart rate 2022-09-17 19:28:58 78 /min [facility] Body temperature 2022-09-17 19:28:58 37.06 Roma [facility] Respiratory rate 2022-09-17 19:28:58 18 /min [facility] Oxygen saturation in Arterial blood by Pulse oximetry 2022-09-17 19:28:58 98 /min [facility] Body height 2022-09-17 16:43:00 160 cm [facility] Body weight 2022-09-17 16:43:00 51.71 kg [facility] BMI 2022-09-17 16:43:00 20.19 kg/m2 [facility] Systolic blood pressure 2022-04-03 19:20:00 106 mm[Hg] [facility] Diastolic blood pressure 2022-04-03 19:20:00 72 mm[Hg] [facility] Heart rate 2022-04-03 19:20:00 104 /min [facility] Body temperature 2022-04-03 19:20:00 36.22 Roma [facility] Respiratory rate 2022-04-03 19:20:00 18 /min [facility] Body height 2022-04-03 19:20:00 162.6 cm [facility] Body weight 2022-04-03 19:20:00 46.72 kg [facility] BMI 2022-04-03 19:20:00 17.68 kg/m2 [facility] Oxygen saturation in Arterial blood by Pulse oximetry 2022-04-03 19:20:00 89 /min [facility] Systolic blood pressure 2021-07-18 20:42:00 174 mm[Hg] [facility] Diastolic blood pressure 2021-07-18 20:42:00 98 mm[Hg] [facility] Heart rate 2021-07-18 20:42:00 104 /min [facility] temperature 2021-07-18 20:42:00 35.72 Roma [facility] Body height 2021-07-18 20:42:00 160 cm [facility] Body weight 2021-07-18 20:42:00 56.246 kg [facility] BMI 2021-07-18 20:42:00 21.97 kg/m2 [facility] BP Systolic 2024-11-11 14:44:00 132 mm[Hg] Step hen F You BP Diastolic 2024-11-11 14:44:00 78 mm[Hg] Samm phen F You Weight Measured 2024-11-11 14:44:00 128.00 pounds Delfino F You Height Measured 2024-11-11 14:44:00 63.00 inches Delfino F [place] Body Temperature 2024-11-11 14:44:00 97.20 degrees Delfino [...] You BP Diastolic 2024-07-01 12:21:00 60 mm[Hg] Smam phen F You Weight Measured 2024-07-01 12:21:00 [...] You BP Diastolic 2024-05-27 08:36:00 86 mm[Hg] Asmm phen F You Weight Measured 2024-05-27 08:36:00 [...] 2024-05-07 10:48:00 92.00 /min Araceli en F [facility] Respiratory Rate 2024-05-07 10:48:00 Delfino F You [...] You Weight Measured 2023-05-09 14:07:00 122.80 pounds Delfion F You Height Measured 2023-05-09 14:07:00 63.00 [...] Date / Time Performed Performing Clinician Source [id number] [facility] 2024-11-03 00:00:00 Delfino Jenkins 2024-06-05 18:43:00 Spenser Chahal [facility] MAGNESIUM 2024-06-05 08:48:00 Essence Erwin [facility] BASIC METABOLIC PANEL (NA, K, CL, CO2, GLUCOSE, BUN, CREATININE, CA) 2024-06-05 08:48:00 Rubén Erwin [facility] CBC WITH DIFF 2024-06-05 08:48:00 Essence Erwin [facility] PROTHROMBIN TIME / INR 2024-06-05 08:48:00 Rubén Choudhury [facility] ACTIVATED PARTIAL THRMPLAS RAMY 2024-06-05 08:48:00 Rubén Erwin [facility] TRANSTHORACIC ECHO (TTE) COMPLETE W/ CONTRAST 2024-06-04 20:05:40 Rubén Erwin [facility] MAGNESIUM 2024-06-04 09:57:00 Essence Erwin [facility] BASIC METABOLIC PANEL (NA, K, CL, CO2, GLUCOSE, BUN, CREATININE, CA) 2024-06-04 09:57:00 Rubén Erwin [facility] LIPID PANEL ([id number])(TOTAL CHOLESTEROL, TRIGLYCERIDES, HDL) 2024-06-04 09:57:00 Rubén Erwin [facility] CBC WITH DIFF 2024-06-04 09:57:00 Essence Erwin [facility] TROPONIN I 2024-06-04 05:20:00 Essence Erwin [facility] URINALYSIS 2024-06-04 04:26:00 Essence Erwin [facility] URINE DRUG (IMMUNOASSAY) - COMPREHENSIVE DRUG SCREEN 2024-06-04 00:57:00 [facility] 2024-06-03 23:26[facility]00 [facility] 2024-06-03 23:21:00 Rubén Fowler [facility] MAGNESIUM 2024-06-03 23:06:00 [facility]24-06-03 23:06:00 [facility] HEPATIC FUNCTION PANEL ([id number]) (ALB,T.PRO,BILI T,BU/BC,ALT,AST,ALK PHOS) 2024-06-03 23:06:00 Rubén Erwin [facility] BASIC METABOLIC PANEL (NA, K, CL, CO2, GLUCOSE, BUN, CREATININE, CA) 2024-06-03 23:06:00 Rubén Erwin [facility] CBC WITH DIFF 2024-06-03 23:06:00 Essence Erwin [facility] GLYCOSYLATED HEMOGLOBIN (A1C) 2024-06-03 23:06:00 Rubén Erwin [facility] CD4 SUBSET ASSAY 2024-06-03 23:06:00 Robert Erwin [facility] N-TERMINAL PRO-BNP 2024-06-03 23:06:00 Rubén Erwin [facility] HUMAN IMMUNODEFICIENCY VIRUS 1 (HIV-1) BY QUANTITATIVE NAAT 2024-06-03 23:06:00 Rubén Erwin [facility] SYPHILIS IGG/IGM 2024-06-03 23:06:00 Robert Erwin [facility] (1,3)-WWXV-[id number]-HNOZBT (FUNGITELL) 2024-06-03 23:06:00 Rubén Erwin [facility] HB ECG ROUTINE & RHYTHM STRIP 2024-06-03 22:21:34 Rubén Erwin [facility] REFERRAL- REQUEST/RESPONSE 2023-06-26 15:45:25 D octor Unassigned, [place] [facility] BASIC METABOLIC PANEL (NA, K, CL, CO2, GLUCOSE, BUN, CREATININE, CA) 2023-05-20 08:28:[address] [facility] CBC WITH DIFF 2023-05-20 08:28:[address] [facility] TROPONIN I 2023-05-19 10:21:00 Daniel Arreaga [facility] BASIC METABOLIC PANEL (NA, K, CL, CO2, GLUCOSE, BUN, CREATININE, CA) 2023-05-19 10:21:00 Dawn Eddy [facility] LIPID PANEL (15049)(TOTAL CHOLESTEROL, TRIGLYCERIDES, HDL) 2023-05-19 10:21:00 James Stacy [facility] CD4 SUBSET ASSAY 2023-05-19 10:21:00 Daniel Arreaga [facility] UREA NITROGEN URINE 2023-05-18 08:30:[address] [facility] COMP. METABOLIC PANEL (26538) 2023-05-17 18:43:00 Anyi Hearn [facility] CBC WITH DIFF 2023-05-17 18:43:00 [facility]OSCOPIC 2023-05-17 14:17:00 Essence Abreu [facility] SODIUM, URINE RANDOM 2023-05-17 14:16:00 Brady Lefty [facility] PROTEIN CREAT RATIO URINE RANDOM 2023-05-17 14:16:00 Brady [facility] TROPONIN I 2023-05-17 13:54:00 [facility] TRANSTHORACIC ECHO (TTE) COMPLETE 2023-05-17 12:45:00 Kvng Roberson [facility] CREATININE 2023-05-17 03:28:00 [facility] TROPONIN I 2023-05-16 21:13:00 Kvng Roberson [facility] ACUTE CARE VENOUS BLOOD GAS 2023-05-16 18:21:00 Ayde Hearnherine [facility] XR CHEST 1 VW 2023-05-16 18:00[facility]-16 17:40:00 [facility] TROPONIN I 2023-05-16 17:40:00 Ezra Anyi [facility] COMP. METABOLIC PANEL (80747) 2023-05-16 17:40:00 Anyi Hearn [facility] CBC WITH DIFF 2023-05-16 17:40:00 [facility]OUT[facility] & RHYTHM STRIP 2023-05-16 17:21:17 Ezra Anyi [facility] ASSIGNMENT OF BENEFITS 2023-03-20 17:45:01 Docto r Unassigned, [place] [facility] CONSENT/REFUSAL FOR DIAGNOSIS AND TREATMENT 2023-03-20 16:29:12 Doctor Unassigned, [place] [facility] XR SPINE THORACIC 2 VW 2022-09-17 18:21:00 Vannesa Hobbs [facility] CONSENT/REFUSAL FOR DIAGNOSIS AND TREATMENT 2022-09-17 16:35:17 Doctor Unassigned, [place] [facility] REFERRAL- REQUEST/RESPONSE 2022-06-05 05:01:00 D martinmey Unassigned, [place] [facility] HSV 1&2, VZV NAAT 2022-04-03 20:43:00 [facility]/RESPONSE 2022-01-19 06:01:00 D martinmey Unassigned, [place] [facility] [id number] Ecg Routine Ecg W/least 12 Lds W/i r 2016-10-23 00:00:00 Delfino Orta Plan of Care Planned Activity Planned Date Details Comments Source Goal Plan of Care Note [code = 00400-3] Goal Plan of Care Note [code = 05103-7] Goal Plan of Care Note [code = 91909-8] Goal Plan of Care Note [code = 68202-9] Goal Plan of Care Note [code = 50771-9] Goal Plan of Care Note [code = 75736-2] Goal Plan of Care Note [code = 97117-0] Goal Plan of Care Note [code = 17138-0] Goal Plan of Care Note [code = 17666-9] Goal Plan of Care Note [code = 83960-7] Goal Plan of Care Note [code = 84431-9] Goal Plan of Care Note [code = 27579-6] Goal Plan of Care Note [code = 15119-9] Goal Plan of Care Note [code = 64229-9] Goal Plan of Care Note [code = 37995-5] Goal Plan of Care Note [code = 10739-0] Goal Plan of Care Note [code = 93017-4] Goal Plan of Care Note [code = 09998-1] Goal Plan of Care Note [code = 66972-2] Goal Plan of Care Note [code = 92251-1] Goal Plan of Care Note [code = 96532-0] Goal Plan of Care Note [code = 63942-6] Goal Plan of Care Note [code = 35911-8] Goal Plan of Care Note [code = 27256-5] Goal Plan of Care Note [code = 08542-1] Goal Plan of Care Note [code = 29962-1] Goal Plan of Care Note [code = 65583-9] Goal Plan of Care Note [code = 43114-7] Goal Plan of Care Note [code = 70079-4] Goal Plan of Care Note [code = 51678-0] Goal Plan of Care Note [code = 74239-2] Goal Plan of Care Note [code = 88457-6] Goal Plan of Care Note [code = 80149-2] Goal Plan of Care Note [code = 60435-8] Goal Plan of Care Note [code = 60300-3] Goal Plan of Care Note [code = 71551-8] Goal Plan of Care Note [code = 70826-3] Goal Plan of Care Note [code = 90249-8] Goal Plan of Care Note [code = 41870-8] Goal Plan of Care Note [code = 36547-0] Goal Plan of Care Note [code = 82488-2] Goal Plan of Care Note [code = 90477-2] Goal Plan of Care Note [code = 75462-9] Goal Plan of Care Note [code = 71451-4] Goal Plan of Care Note [code = 13813-3] Goal Plan of Care Note [code = 52266-0] Goal Plan of Care Note [code = 82116-0] Goal Plan of Care Note [code = 86898-3] Goal Plan of Care Note [code = 95110-0] Goal Plan of Care Note [code = 31843-9] Goal Plan of Care Note [code = 55823-7] Goal Plan of Care Note [code = 01550-8] Goal Plan of Care Note [code = 74727-1] Goal Plan of Care Note [code = 82018-3] Goal Plan of Care Note [code = 40247-7] Goal Plan of Care Note [code = 57176-2] Goal Plan of Care Note [code = 45605-9] Goal Plan of Care Note [code = 90092-6] Goal Plan of Care Note [code = 76723-7] Goal Plan of Care Note [code = 67482-5] Goal Plan of Care Note [code = 26473-4] Goal Plan of Care Note [code = 32812-1] Goal Plan of Care Note [code = 79710-8] Goal Plan of Care Note [code = 87744-3] Goal Plan of Care Note [code = 00604-2] Goal Plan of Care Note [code = 00166-7] Goal Plan of Care Note [code = 70180-3] Goal Plan of Care Note [code = 02309-5] Goal Plan of Care Note [code = 85799-3] Goal Plan of Care Note [code = 69997-7] Goal Plan of Care Note [code = 34376-0] Goal Plan of Care Note [code = 86594-7] Goal Plan of Care Note [code = 12055-0] Goal Plan of Care Note [code = 44870-6] Goal Plan of Care Note [code = 20215-3] Goal Plan of Care Note [code = 55220-0] Goal Plan of Care Note [code = 61187-4] Goal Plan of Care Note [code = 12412-6] Goal Plan of Care Note [code = 50106-2] Goal Plan of Care Note [code = 34351-1] Goal Plan of Care Note [code = 15201-9] Goal Plan of Care Note [code = 46648-5] Goal Plan of Care Note [code = 94133-4] Goal Plan of Care Note [code = 86101-2] Goal Plan of Care Note [code = 37605-4] Goal Plan of Care Note [code = 84724-4] Goal Plan of Care Note [code = 11633-5] Goal Plan of Care Note [code = 41409-3] Goal Plan of Care Note [code = 15642-1] Goal Plan of Care Note [code = 28495-7] Goal Plan of Care Note [code = 99941-1] Goal Plan of Care Note [code = 98058-2] Goal Plan of Care Note [code = 21888-3] Goal Plan of Care Note [code = 27281-0] Goal Plan of Care Note [code = 02151-4] Goal Plan of Care Note [code = 37729-7] Goal Plan of Care Note [code = 84602-3] Goal Plan of Care Note [code = 07475-5] Goal Plan of Care Note [code = 95117-3] Goal Plan of Care Note [code = 50546-6] Goal Plan of Care Note [code = 58463-5] Goal Plan of Care Note [code = 31403-3] Goal Plan of Care Note [code = 15767-8] Goal Plan of Care Note [code = 69009-0] Goal Plan of Care Note [code = 88604-1] Goal Plan of Care Note [code = 23683-1] Goal Plan of Care Note [code = 17453-1] Goal Plan of Care Note [code = 95539-4] Goal Plan of Care Note [code = 14155-5] Goal Plan of Care Note [code = 09634-3] Goal Plan of Care Note [code = 57037-7] Goal Plan of Care Note [code = 71188-0] Goal Plan of Care Note [code = 56423-5] Goal Plan of Care Note [code = 72546-2] Goal Plan of Care Note [code = 28753-6] Goal Plan of Care Note [code = 06484-2] Goal Plan of Care Note [code = 61163-0] Goal Plan of Care Note [code = 30226-4] Goal Plan of Care Note [code = 36343-0] Goal Plan of Care Note [code = 31817-3] Goal Plan of Care Note [code = 94044-8] Goal Plan of Care Note [code = 51345-7] Goal Plan of Care Note [code = 99932-5] Goal Plan of Care Note [code = 57104-8] Goal Plan of Care Note [code = 77295-1] Goal Plan of Care Note [code = 49174-1] Goal Plan of Care Note [code = 33808-4] Goal Plan of Care Note [code = 06998-5] Goal Plan of Care Note [code = 77235-7] Goal Plan of Care Note [code = 31930-3] Goal Plan of Care Note [code = 22843-7] Goal Plan of Care Note [code = 28649-6] Goal Plan of Care Note [code = 59032-2] Goal Plan of Care Note [code = 51804-1] Goal Plan of Care Note [code = 24350-3] Goal Plan of Care Note [code = 89152-4] Goal Plan of Care Note [code = 29513-8] Goal Plan of Care Note [code = 56428-7] Goal Plan of Care Note [code = 60666-3] Goal Plan of Care Note [code = 49287-3] Goal Plan of Care Note [code = 15275-9] Goal Plan of Care Note [code = 43202-0] Goal Plan of Care Note [code = 01754-7] Goal Plan of Care Note [code = 57901-4] Goal Plan of Care Note [code = 41841-1] Goal Plan of Care Note [code = 40580-0] Goal Plan of Care Note [code = 97515-6] Goal Plan of Care Note [code = 51849-5] Goal Plan of Care Note [code = 19526-9] Goal Plan of Care Note [code = 53788-0] Goal Plan of Care Note [code = 22291-4] Goal Plan of Care Note [code = 13657-3] Goal Plan of Care Note [code = 37216-4] Goal Plan of Care Note [code = 49348-5] Goal Plan of Care Note [code = 32813-9] Goal Plan of Care Note [code = 00898-7] Goal Plan of Care Note [code = 57397-3] Goal Plan of Care Note [code = 82405-3] Goal Plan of Care Note [code = 25147-8] Goal Plan of Care Note [code = 41614-3] Goal Plan of Care Note [code = 75412-2] Goal Plan of Care Note [code = 84685-7] Goal Plan of Care Note [code = 77860-5] Goal Plan of Care Note [code = 93177-2] Goal Plan of Care Note [code = 76474-0] Goal Plan of Care Note [code = 73315-3] Goal Plan of Care Note [code = 33327-8] Goal Plan of Care Note [code = 52522-6] Goal Plan of Care Note [code = 98697-5] Goal Plan of Care Note [code = 95072-8] Goal Plan of Care Note [code = 68979-3] Goal Plan of Care Note [code = 29101-8] Goal Plan of Care Note [code = 87979-0] Goal Plan of Care Note [code = 35938-0] Encounters Start Date/Time End Date/Time Encounter Type Admission Type Attending Clinicians Care Facility Care Department Encounter ID Source 2023-12-04 10:08:00 Outpatient Zaria Orellana [facility] [id number] [facility] 2023-11-11 14:53:00 Outpatient Zaria Orellana [facility] [id number] [facility] 2023-03-29 10:18:01 Outpatient [facility] [id number] [facility] 2023-03-28 14:01:00 Outpatient [facility] [id number] [facility] 2023-03-26 15:20:01 Outpatient [facility] [id number] [facility] 2024-11-11 14:34:13 2024-11-11 14:34:13 Outpatient SFA SFA [id number] Delfino Orta 2024-11-11 00:00:00 2024-11-11 00:00:00 Outpatient Visit SFA [id number] w2q-90qs-7 408-fa74ec [id number] Delfino Orta 2024-11-03 14:30:14 2024-11-03 14:30:14 Outpatient SFA SFA 0923 Delfino Orta 2024-10-27 08:17:02 2024-10-27 08:17:[address] [facility] 16 Delfino Orta 2024-10-27 00:00:00 2024-10-27 00:00:00 Outpatient Visit SFA [id number] g2r-w11276 [id number] Delfino Orta 2024-10-14 14:22:16 2024-10-14 14:22:16 Outpatient SFA SFA [id number] Delfino Orta 2024-10-14 00:00:00 2024-10-14 00:00:00 Outpatient Visit SFA [id number] 370-4ae7-9 a47-y09utg [id number] Delfino Orta 2024-10-06 10:07:03 2024-10-06 10:07:03 Outpatient SFA SFA [id number] Delfino Orta 2024-10-06 00:00:00 2024-10-06 00:00:00 Outpatient Visit SFA [id number] 9fe-4feb-8 1b1-o6p3pi [id number] Delfino Orta 2024-10-05 13:33:43 2024-10-05 13:33:43 Outpatient SFA SFA 25 Delfino Orta 2024-09-16 00:00:00 2024-09-30 10:28:11 Telephone Guero Verdugo [facility] 1.2.840.114 350.1.13.10 4.2.7.2.686 [id number] [facility] 2024-09-17 14:33:45 2024-09-17 14:33:[address] [facility] 806 Delfino Schumacher [place] 2024-09-17 00:00:00 2024-09-17 00:00:00 Outpatient Visit SFA [id number] h62-8b02-4 [id number] e00e40 Delfino Schumacher [facility] 2024-09-14 00:00:00 2024-09-14 00:00:00 Outpatient Visit SFA [id number] q5a6g1d2-2 650-4522-9 s8z-9wo2tj fbb87a Delfino Orta 2024-08-27 15:30:00 2024-08-27 15:30:00 Outpatient R GUERO VERDUGO [facility] [id number] [facility] 2024-08-11 09:30:49 2024-08-11 09:30:49 Outpatient SFA SFA 01 Delfino Schumacher [place] 2024-08-11 00:00:00 2024-08-11 00:00:00 Outpatient Visit SFA [id number] t80-98mk-l bed-h9974t 10a3a9 Delfino Orta 2024-08-07 09:56:24 2024-08-07 09:56:24 Outpatient SFA SFA 626 Delfino Schumacher [place] 2024-08-06 10:57:00 2024-08-06 10:57:00 Outpatient SFA SFA [id number] 0626 Delfino Orta 2024-08-06 00:00:00 2024-08-06 00:00:00 Outpatient Visit SFA [id number] 767-4b06-b 421-aa5b6d [id number] Delfino Orta 2024-08-05 10:33:59 2024-08-05 10:33:59 Outpatient SFA SFA 25 Delfino Orta 2024-08-05 00:00:00 2024-08-05 00:00:00 Outpatient Visit SFA [id number] ed1-4842-b ed1-4b2b99 e1da0a Delfino Orta 2024-07-28 00:00:00 2024-07-28 00:00:00 (TEL) [facility]LC [facility] [id number] [facility] 2024-07-08 14:27:00 2024-07-08 14:27:00 Outpatient SFA SFA [id number] Delfino Orta 2024-07-01 10:56:19 2024-07-01 10:56:19 Outpatient SFA SFA [id number] [id number] Delfino Orta 2024-07-01 00:00:00 2024-07-01 00:00:00 Outpatient KENJI SAAB LUCAS [facility] [id number] [facility] 2024-07-01 00:00:00 2024-07-01 00:00:00 Outpatient Visit SFA [id number] 35c-45e2-b cb4-c4b9b3 [id number] Delfino Orta 2024-06-24 00:00:00 2024-06-24 00:00:00 (TEL) [facility]LC STLC [id number] [facility] 2024-06-23 00:00:00 2024-06-23 00:00:00 Outpatient KENJI SAAB LUCAS [facility] [id number] [facility] 2024-06-23 00:00:00 2024-06-23 00:00:00 Outpatient KENJI SAAB LUCAS [facility] [id number] [facility] 2024-06-19 00:00:00 2024-06-20 02:34:27 Spenser Shukla [facility] 1.114 350.1.13.10 4.2.7.2.686 [id number] [facility] 2023-09-24 00:00:00 2024-06-11 15:16:55 Letter (Out) Atif Jackson [facility] ([place] 1.114 350.1.13.10 4.2.7.2.686 [id number] [facility] 2024-06-09 11:18:56 2024-06-09 11:18:56 Outpatient SFA SFA [id number] Delfino Orta 2024-06-09 00:00:00 2024-06-09 00:00:00 Outpatient Visit SFA [id number] dn7d51tf-g 8r9-67q1-a x4w-8p9765 [id number] Delfino Orta 2024-06-08 00:00:00 2024-06-08 14:22:09 Transition of Care Abbi Rivera Christine [address] 1..114 350.1.13.10 4.2.7.2.686 [id number] [facility] 2024-06-03 16:20:00 2024-06-05 17:23:00 Outpatient U KENJI LORD LUCAS [facility] [id number] [facility] 2024-06-03 16:20:00 2024-06-05 17:23:00 Hospital Encounter Kenji Lord [facility] ([facility]) 1..114 350.1.13.10 4.2.7.2.686 [id number] [facility] 2024-06-01 10:21:20 2024-06-01 10:21:20 Outpatient SFA SFA [id number] Delfino Orta 2024-05-27 08:17:14 2024-05-27 08:17:14 Outpatient SFA SFA [id number] Delfino Orta 2024-05-27 00:00:00 2024-05-27 00:00:00 Outpatient Visit SFA [id number] b30-9810-e 5j1-28471r b65fa6 Delfino Orta 2024-05-13 14:25:39 2024-05-13 14:25:39 Outpatient SFA SFA [id number] Delfino Orta 2024-05-13 00:00:00 2024-05-13 00:00:00 Outpatient Visit SFA [id number] 4r1x5763-g ce7-4df7-b 0y3-v63jm6 [id number] Delfino Orta 2024-05-07 00:00:00 2024-05-07 00:00:00 Outpatient Visit SFA SFA [id number] 6b0-2877-p 23e-ecfc93 3af3b0 Delfino Orta 2024-05-05 09:58:47 2024-05-05 09:58:47 Outpatient SFA SFA [id number] [id number] Delfino Orta 2024-05-05 00:00:00 2024-05-05 00:00:00 Outpatient Visit SFA [id number]-w x83-5771-u eb4-096291 73a12c Delfino Orta 2024-04-22 00:00:00 2024-04-22 00:00:00 (TEL) STLMLC [facility]C [id number] [facility] 2024-04-09 09:05:03 2024-04-09 09:05:03 Outpatient SFA SFA [id number] Delfino Orta 2024-04-09 00:00:00 2024-04-09 00:00:00 Outpatient Visit SFA [id number] 7xw6nj15-w u4q-2sw7-s 0o7-88j2s2 e4a1a1 Delfino Orta 2024-04-08 15:06:50 2024-04-08 15:06:[address] [facility] [id number] Delfino Orta 2024-04-08 00:00:00 2024-04-08 00:00:00 Outpatient Visit SFA CHETAN [id number] 1e0-3219-w [id number] [id number] Delfino Orta 2023-06-26 00:00:00 2024-03-28 07:46:41 Orders Only Doctor Unassigned, [place] Doctor Unassigned, [place] [facility] 1.2.840.114 350.1.13.10 4.2.7.2.686 [id number] [facility] 2024-03-09 08:55:19 2024-03-09 08:55:[address] [facility] [id number] Delfino Orta 2024-03-09 00:00:00 2024-03-09 00:00:00 Outpatient Visit SFA [id number] t0jy0y42-q 49b-4852-9 k26-a91lk9 [id number] Delfino Orta 2024-02-26 11:12:50 2024-02-26 11:12:50 Outpatient SFA CHETAN [id number] Delfino Orta 2024-02-26 00:00:00 2024-02-26 00:00:00 Outpatient Visit SFA [id number] 6x2-6v90-g 1k6-rmq87z [id number] Delfino Orta 2024-02-07 11:11:04 2024-02-07 11:11:[address] [facility] [id number] Delfino Orta 2024-02-07 00:00:00 2024-02-07 00:00:00 Outpatient Visit SFA [id number] z73-4k32-5 126-ece94c [id number] Delfino Orta 2024-01-13 09:11:38 2024-01-13 09:11:38 Outpatient SFA SFA [id number] Delfino Orta 2024-01-13 00:00:00 2024-01-13 00:00:00 Outpatient Visit SFA [id number] fda-45c9-8 220-3m194h [id number] Delfino Orta 2024-01-01 00:00:00 2024-01-01 00:00:00 Outpatient Visit SFA [id number] v2uo1925-p f0g-194h-3 acd-bd3c1c q9n913 Delfino Orta 2023-11-28 00:00:00 2023-11-28 00:00:00 Outpatient Visit SFA [id number] g538ao2p-f ffe-4d1a-9 602-7d4d0f c3cbfb Delfino Orta 2023-11-20 09:01:17 2023-11-20 09:01:17 Outpatient SFA SFA [id number] Delfino Orta 2023-11-19 10:28:43 2023-11-19 10:28:43 Outpatient SFA SFA [id number] Delfino Orta 2023-11-19 00:00:00 2023-11-19 00:00:00 Outpatient Visit SFA [id number] 425-43cf-b 669-1c6235 edee0e Delfino Orta 2023-11-12 00:00:00 2023-11-12 00:00:00 (TEL) STLMLC STLMLC [id number] [facility] 2023-11-11 00:00:00 2023-11-11 00:00:00 OFFICE VISIT NEW PT LEVEL 4 STLMLC STLMLC [id number] [facility] 2023-11-02 11:02:07 2023-11-02 11:02:07 Outpatient SFA SFA [id number] Delfino Orta 2023-11-02 00:00:00 2023-11-02 00:00:00 Outpatient Visit SFA [id number] k22jv999-w 694-4dee-9 1dc-3505b0 b84bc6 Delfino Orta 2023-10-09 14:12:37 2023-10-09 14:12:37 Outpatient SFA SFA [id number] Delfino Orta 2023-10-09 00:00:00 2023-10-09 00:00:00 Outpatient Visit SFA [id number] rh09j5v6-5 o31-9903-0 ac5-c614e2 lm447e Delfino Orta 2023-09-23 13:55:35 2023-09-23 13:55:35 Outpatient SFA SFA [id number] Delfino Orta 2023-09-23 00:00:00 2023-09-23 00:00:00 Outpatient Visit SFA [id number] dc06e1m0-c acc-4b92-9 g3i-3u34tz [id number] Delfino Orta 2023-09-10 09:05:48 2023-09-10 09:05:48 Outpatient SFA SFA [id number] Delfino Orta 2023-09-10 00:00:00 2023-09-10 00:00:00 Outpatient Visit SFA [id number] y0do079e-7 1i5-03f0-0 [id number] [id number] Delfino Orta 2023-08-28 13:07:55 2023-08-28 13:07:55 Outpatient SFA SFA 17 Delfino Orta 2023-08-28 00:00:00 2023-08-28 00:00:00 Outpatient Visit SFA [id number] d0u0jhss-0 2r4-7h41-3 3c4-6v3j10 [id number] Delfino Orta 2023-08-22 00:00:00 2023-08-22 00:00:00 Outpatient Visit SFA [id number] 4f2l21i5-7 bc5-4fb0-9 j29-0403l8 66acd9 Delfino Orta 2023-08-09 14:45:50 2023-08-09 14:45:50 Outpatient SFA SFA [id number] Delfino Orta 2023-08-09 00:00:00 2023-08-09 00:00:00 Outpatient Visit SFA [id number] xr2rc76y-o 5fc-42da-a 332-1c7b70 [id number] Delfino Orta 2023-07-24 11:05:48 2023-07-24 11:05:[address] [facility] [id number] Delfino Orta 2023-07-24 00:00:00 2023-07-24 00:00:00 Outpatient Visit SFA [id number] rg9k1f6d-9 41c-49d6-a v6d-4472ai [id number] Delfino Orta 2023-07-09 00:00:00 2023-07-09 00:00:00 Outpatient Visit SFA [id number] 2052x219-3 t52-71s8-w [id number] [id number] Delfino Schumacher [facility] 2023-07-02 00:00:00 2023-07-02 14:33:10 [facility] 1..840.114 350.1.13.10 4.2.7.2.686 [id number] [facility] 2023-06-05 13:09:09 2023-06-05 13:09:[address] [facility] 4 Delfino Schumacher [place] 2023-06-04 13:27:22 2023-06-04 13:27:[address] [facility] 3 Delfino Schumacher [place] 2023-06-04 00:00:00 2023-06-04 00:00:[address] [facility] [id number] q5zu7da4-t fc5-45eb-a 553-38d34c 0b1f1c Delfino Schumacher [facility] 2023-05-21 00:00:00 2023-05-21 00:00:00 Transition of Care Lj Paredes 1..840.114 350.1.13.10 4.2.7.2.686 [id number] [facility] 2023-05-16 12:13:00 2023-05-20 16:40:00 Inpatient X KVNG ROBERSON [facility] [id number] [facility] 2023-05-16 12:13:00 2023-05-20 16:40:00 Hospital Encounter Ezra, Anyi Kvng Roberson [facility] 1.2.840.114 350.1.13.10 4.2.7.2.686 [id number] [facility] 2023-05-09 13:59:33 2023-05-09 13:59:33 Outpatient [place] [id number] Delfino Schumacher [place] 2023-04-18 10:12:11 2023-04-18 10:12:11 Outpatient SFA [place] [id number] Delfino Schumacher [place] 2023-04-02 09:41:47 2023-04-02 09:41:47 Outpatient [place] [id number] Delfino Schumacher [place] 2023-03-20 10:44:00 2023-03-20 12:35:00 Emergency X ANYI HEARN [facility] ERT [id number] [facility] 2023-03-20 10:44:00 2023-03-20 12:35:00 Emergency Anyi Hearn [facility] 1.2.840.114 350.1.13.10 4.2.7.2.686 [id number] [facility] 2023-03-18 10:58:22 2023-03-18 10:58:22 Outpatient [facility] 0205 Delfino Schumacher [place] 2023-03-14 14:37:27 2023-03-14 14:37:27 Outpatient [place] [id number] Delfino Schumacher [place] 2023-03-07 13:58:45 2023-03-07 13:58:45 Outpatient SFA [place] [id number] Delfino Schumacher [place] 2022-12-14 14:53:29 2022-12-14 14:53:29 Outpatient SFA [place] [id number] Delfino Schumacher [place] 2022-10-04 11:25:10 2022-10-04 11:25:10 Outpatient SFA [place] [id number] Delfino Orta 2022-09-17 11:44:00 2022-09-17 14:31:00 Emergency X GASTON HOBBS [facility] ERT [id number] [facility] 2022-09-17 11:44:00 2022-09-17 14:31:00 Emergency Gaston Hobbs J [facility] 1.2.840.114 350.1.13.10 4.2.7.2.686 [id number] [facility] 2022-09-12 09:01:58 2022-09-12 09:01:58 Outpatient [facility] 0802 Delfino Orta 2022-09-11 00:00:00 2022-09-11 00:00:00 Case Management Kasandra Flores [facility] 1..840.114 350.1.13.10 4.2.7.2.686 [id number] [facility] 2022-08-07 09:45:03 2022-08-07 09:45:03 Outpatient [facility] 0627 Delfino Orta 2022-08-01 13:52:32 2022-08-01 13:52:32 Outpatient [facility] 0621 Delfino Orta 2022-07-18 09:30:00 2022-07-18 09:30:00 Outpatient R CLARITZA JAMISON [facility] [id number] [facility] 2022-07-04 11:11:38 2022-07-04 11:11:38 Outpatient [facility] 0524 Delfino Orta 2022-06-05 00:00:00 2022-06-05 00:00:00 Orders Only Doctor Unassigned, [place] [facility] 1..840.114 350.1.13.10 4.2.7.2.686 [id number] [facility] 2022-05-29 09:31:33 2022-05-29 09:31:33 Outpatient [facility] [id number] Delfino Orta 2022-05-15 13:00:00 2022-05-15 13:00:00 Outpatient R [facility] [id number] [facility] 2022-05-15 09:34:43 2022-05-15 09:34:[address] [facility] 0404 Delfino Orta 2022-04-19 15:25:24 2022-04-19 15:25:[address] [facility] 0309 Delfino Orta 2022-04-04 00:00:00 2022-04-04 00:00:00 Case Management Del Jeanine Shoemaker [facility] 1..840.114 350.1.13.10 4.2.7.2.686 [id number] [facility] 2022-04-03 13:00:00 2022-04-03 14:00:00 Office Visit Guerline Garcia Jeffrey [facility] 1..840.114 350.1.13.10 4.2.7.2.686 [id number] [facility] 2022-04-03 13:00:00 2022-04-03 13:00:00 Outpatient R GUERO MARTINEZ [facility] [id number] [facility] 2022-04-02 15:14:37 2022-04-02 15:14:[address] [facility] [id number] Delfino Orta 2022-03-28 13:26:46 2022-03-28 13:26:[address] [facility] [id number] Delfino Orta 2022-02-28 11:43:30 2022-02-28 11:43:[address] [facility] 0118 Delfino Orta 2022-02-28 00:00:00 2022-02-28 00:00:00 Outpatient Visit q33w3hp4- n492-01i7 -9cca-918 [id number] [id number] w14g3wq8-q 633-44a8-9 cca-918f69 9a0a89 2022-02-27 15:30:00 2022-02-27 15:30:00 Outpatient R [facility] [id number] [facility] 2022-02-23 10:25:15 2022-02-23 10:25:[address] [facility] [id number] Delfino Orta 2022-02-22 00:00:00 2022-02-22 00:00:00 Case Management Oleg Jeanine Shoemaker Robert [facility] 1.114 350.1.13.10 4.2.7.2.686 [id number] [facility] 2022-01-29 00:00:00 2022-01-29 00:00:00 Case Management Osman Ware [facility] 1..114 350.1.13.10 4.2.7.2.686 [id number] [facility] 2022-01-19 13:56:18 2022-01-19 13:56:18 Outpatient [facility] [id number] Delfino Orta 2022-01-19 00:00:00 2022-01-19 00:00:00 Orders Only Doctor Unassigned, [place] [facility] 1..114 350.1.13.10 4.2.7.2.686 [id number] [facility] 2022-01-19 00:00:00 2022-01-19 00:00:00 Outpatient Visit [id number] 2021-11-15 00:00:00 2021-11-15 00:00:00 Case Management Kasandra Flores [facility] 1.114 350.1.13.10 4.2.7.2.686 [id number] [facility] 2021-11-06 00:00:00 2021-11-06 00:00:00 Outpatient Visit [id number] 2021-10-10 09:30:00 2021-10-10 09:30:00 Outpatient R [facility] [id number] [facility] 2021-08-07 00:00:00 2021-08-07 00:00:00 Outpatient Visit [id number] 2021-07-18 15:15:00 2021-07-18 16:23:57 Outpatient R APOLINAR WEBER [facility] [id number] [facility] 2021-07-18 15:15:00 2021-07-18 16:23:57 Office Visit Pgy2 Apolinar Weber [facility] 1.840.114 350.1.13.10 4.2.7.2.686 [id number] [facility] 2021-07-18 15:15:00 2021-07-18 16:23:57 Outpatient R APOLINAR WEBER [facility] [id number] [facility] 2021-06-27 00:00:00 2021-06-27 00:00:00 Telephone Enedina Mccarty [facility] .840.114 350.1.13.10 4.2.7.2.686 [id number] [facility] 2021-06-15 00:00:00 2021-06-15 00:00:00 Transition of Care Lj Paredes 1..840.114 350.1.13.10 4.2.7.2.686 [id number] [facility] 2021-06-09 10:48:00 2021-06-14 17:22:00 Inpatient X TEODORO, BILLY [facility] AURELIA [id number] [facility] 2021-06-09 10:48:00 2021-06-14 17:22:00 Hospital Encounter Toby Donohue A [place], [facility] 1.2840.114 350.1.13.10 4.2.7.2.686 [id number] [facility] 2021-06-12 00:00:00 2021-06-12 00:00:00 Case Management Evette Dunn [facility] 1.0.114 350.1.13.10 4.2.7.2.686 [id number] [facility] 2021-06-08 10:46:00 2021-06-08 16:28:00 Emergency X KENNEDI BLUE [facility] ERT [id number] [facility] 2021-06-08 10:46:00 2021-06-08 16:28:00 Emergency Kennedi Blue [facility] 1.840.114 350.1.13.10 4.2.7.2.686 [id number] [facility] 2021-05-24 00:00:00 2021-05-24 00:00:00 Letter (Out) Mikael Quiroz [facility] 1.0.114 350.1.13.10 4.2.7.2.686 [id number] [facility] 2021-05-23 00:00:00 2021-05-23 00:00:00 Orders Only Doctor Unassigned, [place] [facility] 1.2.840.114 350.1.13.10 4.2.7.2.686 [id number] [facility] 2021-05-01 11:30:00 2021-05-01 12:47:00 Emergency X LJ LIANG [facility] ERT [id number] [facility] 2021-05-01 11:30:00 2021-05-01 12:47:00 Emergency Lj Liang [facility] 1.2.840.114 350.1.13.10 4.2.7.2.686 [id number] [facility] 2020-10-04 11:44:00 2020-10-04 12:54:00 Emergency MARGARET ROBERTSON [facility] ERT [id number] [facility] 2020-10-04 11:44:00 2020-10-04 12:54:00 Emergency Margaret Nunez [facility] 1.2.840.114 350.1.13.10 4.2.7.2.686 [id number] [facility] 2020-09-29 00:00:00 2020-09-29 00:00:00 Telephone Bonny Morris [facility] 1.2.840.114 350.1.13.10 4.2.7.2.686 [id number] [facility] 2020-09-22 14:30:00 2020-09-22 14:30:00 Outpatient R BONNY MORRIS [facility] [id number] [facility] 2020-08-25 09:28:00 2020-08-25 10:21:00 Emergency Margaret Nunez [facility] 1.2.840.114 350.1.13.10 4.2.7.2.686 [id number] [facility] 2020-08-25 09:28:00 2020-08-25 10:21:00 Emergency MARGARET ROBERTSON [facility] ERT [id number] [facility] 2020-08-24 14:43:00 2020-08-24 15:59:00 Emergency Terri Elliott [facility] 1.2.840.114 350.1.13.10 4.2.7.2.686 [id number] [facility] 2020-08-24 14:43:00 2020-08-24 15:59:00 Emergency X [facility] ERT [id number] [facility] 2020-08-24 00:00:00 2020-08-24 00:00:00 Telephone Bonny Morris [facility] 1.2.840.114 350.1.13.10 4.2.7.2.686 [id number] [facility] 2020-08-12 15:00:00 2020-08-12 15:00:00 Outpatient R BONNY MORRIS [facility] [id number] [facility] 2020-08-12 00:00:00 2020-08-12 00:00:00 Telephone Bonny Morris [facility] 1.2.840.114 350.1.13.10 4.2.7.2.686 [id number] [facility] 2020-07-28 00:00:00 2020-07-28 00:00:00 Telephone Bonny Morris [facility] 1.2.840.114 350.1.13.10 4.2.7.2.686 [id number] [id number] [facility] [facility] 2020-07-28 00:00:00 2020-07-28 00:00:00 Orders Only Doctor Unassigned, [place] [facility] 1.284.114 350.1.13.10 4.2.7.2.686 [id number] [id number] [facility] 2020-07-27 00:00:00 2020-07-27 00:00:00 Telephone Bonny Morris [facility] Building 1.2.840.114 350.1.13.10 4.2.7.2.686 [id number] 059 [id number] [facility] 2020-07-27 00:00:00 2020-07-27 00:00:00 [facility] 1.2.840.114 350.1.13.10 4.2.7.2.686 [id number] 059 [id number] [facility] 2020-07-26 14:25:36 2020-07-26 15:12:16 Office Visit Bonny Morris [facility] 1.2.840.114 350.1.13.10 4.2.7.2.686 [id number] 059 [id number] [facility] 2020-07-26 14:30:00 2020-07-26 14:30:00 Outpatient R [facility] [id number] [facility] 2020-07-20 10:25:00 2020-07-20 15:52:00 Emergency Dawn Blanco [facility] 1.2.840.114 350.1.13.10 4.2.7.2.686 [id number] 084 [id number] [facility] 2020-07-20 10:16:00 2020-07-20 10:16:00 Emergency X [facility] ERT [id number] [facility] 2020-07-01 13:47:00 2020-07-01 16:34:00 Emergency Josse Lockhart [facility] 1.2.840.114 350.1.13.10 4.2.7.2.686 [id number] 084 [id number] [facility] 2020-07-01 13:47:00 2020-07-01 16:34:00 Emergency X JOSSE LOCKHART [facility] ERT [id number] [facility] 2020-07-01 13:47:00 2020-07-01 16:34:00 Emergency Josse Lockhart [facility] 1.2.840.114 350.1.13.10 4.2.7.2.686 [id number] 084 [id number] Results Test Description Test Time Test Comments Results Result Co mments Source Delfino OrtaVITAMIN D,25-OH,TOTAL,[id number] 00:00:00* Test Item Value Reference Range Interpretation Comme nts VITAMIN D,25-OH,TOTAL,IA (te st code = 01942-8) 25 ng/mL Delfino [id number] 00:00:00* Test Item Value Reference Range Interpretation Comme carlito MAGNESIUM (test code = 84113-4) 2.4 mg/dL Delfino OrtaVITAMIN B12/FOLATE, SERUM [id number] 00:00:00* Test Item Value Reference Range Interpretation Comme nts VITAMIN B12 (test code = 2132-9) 319 pg/mL FOLATE, SERUM (test code = 2284-8) TNP ng/mL Delfino OrtaHIV 1 RNA, QUANTITATIVE REAL TIME [id number] 00:00:00* Test Item Value Reference Range Interpretation Comme carlito HIV 1 RNA, QN PCR (test code = 49340-3) 82 copies/mL HIV 1 RNA, QN PCR (test code = 45823-6) 1.91 Logcopies/mL Delfino OrtaVITAMIN B12/FOLATE, SERUM [id number] 00:00:00* Test Item Value Reference Range Interpretation Comme nts VITAMIN B12 (test code = 2132-9) 319 pg/mL FOLATE, SERUM (test code = 2284-8) TNP ng/mL Delfino OrtaHIV 1 RNA, QUANTITATIVE REAL TIME [id number] 00:00:00* Test Item Value Reference Range Interpretation Comme nts HIV 1 RNA, QN PCR (test code = 08968-5) 82 copies/mL HIV 1 RNA, QN PCR (test code = 91590-3) 1.91 Logcopies/mL Delfino Schumacher AustinVITAMIN B12/FOLATE, SERUM [id number] 00:00:00* Test Item Value Reference Range Interpretation Comme nts VITAMIN B12 (test code = 2132-9) 319 pg/mL FOLATE, SERUM (test code = 2284-8) TNP ng/mL Delfino OrtaHIV 1 RNA, QUANTITATIVE REAL TIME [id number] 00:00:00* Test Item Value Reference Range Interpretation Comme nts HIV 1 RNA, QN PCR (test code = 00417-7) 82 copies/mL HIV 1 RNA, QN PCR (test code = 99606-2) 1.91 Logcopies/mL Delfino OrtaCALCIUM, [id number] 00:00:00* Test Item Value Reference Range Interpretation Comme nts CALCIUM, IONIZED (test code = 81396-3) 5.9 mg/dL Delfino OrtaCOMPREHENSIVE METABOLIC [id number] 00:00:00* Test Item Value Reference Range Interpretation Comme nts GLUCOSE (test code = 2345-7) 135 mg/dL UREA NITROGEN (BUN) (test code = 3094-0) 29 mg/dL CREATININE (test code = 2160-0) 1.31 mg/dL EGFR (test code = 84473-0) 46 mL/min/1.73m2 BUN/CREATININE RATIO (test code = 3097-3) 22 (calc) SODIUM (test code = 2951-2) 135 mmol/L POTASSIUM (test code = 2823-3) 6.1 mmol/L CHLORIDE (test code = 2075-0) 110 mmol/L CARBON DIOXIDE (test code = 2027-9) 25 mmol/L CALCIUM (test code = 37184-4) 11.1 mg/dL PROTEIN, TOTAL (test code = 2885-2) 9.4 g/dL ALBUMIN (test code = 1751-7) 5.0 g/dL GLOBULIN (test code = 16590-0) 4.4 g/dL(calc) ALBUMIN/GLOBULIN RATIO (test code = 1759-0) 1.1 (calc) BILIRUBIN, TOTAL (test code = 1975-2) 0.5 mg/dL ALKALINE PHOSPHATASE (test code = 6768-6) 86 U/L AST (test code = 1920-8) 31 U/L ALT (test code = 1742-6) 32 U/L Delfino OrtaLIPID [id number] 00:00:00* Test Item Value Reference Range Interpretation Comme nts CHOLESTEROL, TOTAL (test cod e = 2093-3) 260 mg/dL HDL CHOLESTEROL (test code = 2085-9) 164 mg/dL TRIGLYCERIDES (test code = 2571-8) 57 mg/dL LDL-CHOLESTEROL (test code = 09839-4) 83 mg/dL(calc) CHOL/HDLC RATIO (test code = 9830-1) 1.6 (calc) NON HDL CHOLESTEROL (test co de = 08295-6) 96 mg/dL(calc) Delfino OrtaHEMOGLOBIN [id number] 00:00:00* Test Item Value Reference Range Interpretation Comme nts HEMOGLOBIN A1c (test code = 4548-4) 6.2 % Delfino OrtaLYMPHOCYTE SUBSET PANEL 00:00:00* Test Item Value Reference Range Interpretation Comme nts % CD4 (test code = 8123-2) 24 % ABSOLUTE CD4+ CELLS (test co de = 99059-8) 220 cells/uL ABSOLUTE LYMPHOCYTES (test c ode = 731-0) 927 cells/uL Delfino OrtaCOMPREHENSIVE METABOLIC [id number] 00:00:00* Test Item Value Reference Range Interpretation Comme nts GLUCOSE (test code = 2345-7) 135 mg/dL UREA NITROGEN (BUN) (test code = 3094-0) 29 mg/dL CREATININE (test code = 2160-0) 1.31 mg/dL EGFR (test code = 24805-5) 46 mL/min/1.73m2 BUN/CREATININE RATIO (test code = 3097-3) 22 (calc) SODIUM (test code = 2951-2) 135 mmol/L POTASSIUM (test code = 2823-3) 6.1 mmol/L CHLORIDE (test code = 2075-0) 110 mmol/L CARBON DIOXIDE (test code = 2027-9) 25 mmol/L CALCIUM (test code = 43700-1) 11.1 mg/dL PROTEIN, TOTAL (test code = 2885-2) 9.4 g/dL ALBUMIN (test code = 1751-7) 5.0 g/dL GLOBULIN (test code = 60486-4) 4.4 g/dL(calc) ALBUMIN/GLOBULIN RATIO (test code = 1759-0) 1.1 (calc) BILIRUBIN, TOTAL (test code = 1975-2) 0.5 mg/dL ALKALINE PHOSPHATASE (test code = 6768-6) 86 U/L AST (test code = 1920-8) 31 U/L ALT (test code = 1742-6) 32 U/L Delfino OrtaCALCIUM, [id number] 00:00:00* Test Item Value Reference Range Interpretation Comme nts CALCIUM, IONIZED (test code = 03731-1) 5.9 mg/dL Delfino OrtaLIPID [id number] 00:00:00* Test Item Value Reference Range Interpretation Comme nts CHOLESTEROL, TOTAL (test cod e = 2093-3) 260 mg/dL HDL CHOLESTEROL (test code = 2085-9) 164 mg/dL TRIGLYCERIDES (test code = 2571-8) 57 mg/dL LDL-CHOLESTEROL (test code = 79368-9) 83 mg/dL(calc) CHOL/HDLC RATIO (test code = 9830-1) 1.6 (calc) NON HDL CHOLESTEROL (test co de = 04010-0) 96 mg/dL(calc) Delfino OrtaHEMOGLOBIN [id number] 00:00:00* Test Item Value Reference Range Interpretation Comme nts HEMOGLOBIN A1c (test code = 4548-4) 6.2 % Delfino OrtaLYMPHOCYTE SUBSET PANEL 00:00:00* Test Item Value Reference Range Interpretation Comme nts % CD4 (test code = 8123-2) 24 % ABSOLUTE CD4+ CELLS (test co de = 23744-5) 220 cells/uL ABSOLUTE LYMPHOCYTES (test c ode = 731-0) 927 cells/uL Delfino OrtaCOMPREHENSIVE METABOLIC [id number] 00:00:00* Test Item Value Reference Range Interpretation Comme nts GLUCOSE (test code = 2345-7) 135 mg/dL UREA NITROGEN (BUN) (test code = 3094-0) 29 mg/dL CREATININE (test code = 2160-0) 1.31 mg/dL EGFR (test code = 86322-2) 46 mL/min/1.73m2 BUN/CREATININE RATIO (test code = 3097-3) 22 (calc) SODIUM (test code = 2951-2) 135 mmol/L POTASSIUM (test code = 2823-3) 6.1 mmol/L CHLORIDE (test code = 2075-0) 110 mmol/L CARBON DIOXIDE (test code = 2027-9) 25 mmol/L CALCIUM (test code = 67576-0) 11.1 mg/dL PROTEIN, TOTAL (test code = 2885-2) 9.4 g/dL ALBUMIN (test code = 1751-7) 5.0 g/dL GLOBULIN (test code = 14300-2) 4.4 g/dL(calc) ALBUMIN/GLOBULIN RATIO (test code = 1759-0) 1.1 (calc) BILIRUBIN, TOTAL (test code = 1975-2) 0.5 mg/dL ALKALINE PHOSPHATASE (test code = 6768-6) 86 U/L AST (test code = 1920-8) 31 U/L ALT (test code = 1742-6) 32 U/L Delfino OrtaCALCIUM, [id number] 00:00:00* Test Item Value Reference Range Interpretation Comme nts CALCIUM, IONIZED (test code = 09299-3) 5.9 mg/dL Delfino OrtaLIPID [id number] 00:00:00* Test Item Value Reference Range Interpretation Comme nts CHOLESTEROL, TOTAL (test cod e = 3-3) 260 mg/dL HDL CHOLESTEROL (test code = 5-9) 164 mg/dL TRIGLYCERIDES (test code = 2571-8) 57 mg/dL LDL-CHOLESTEROL (test code = 27411-4) 83 mg/dL(calc) CHOL/HDLC RATIO (test code = 9830-1) 1.6 (calc) NON HDL CHOLESTEROL (test co de = 04022-7) 96 mg/dL(calc) Delfino OrtaHEMOGLOBIN [id number] 00:00:00* Test Item Value Reference Range Interpretation Comme nts HEMOGLOBIN A1c (test code = 4548-4) 6.2 % Delfino OrtaLYMPHOCYTE SUBSET PANEL 00:00:00* Test Item Value Reference Range Interpretation Comme nts % CD4 (test code = 8123-2) 24 % ABSOLUTE CD4+ CELLS (test co de = 08344-2) 220 cells/uL ABSOLUTE LYMPHOCYTES (test c ode = 731-0) 927 cells/uL Delfino Orta(1,3)-UUKJ-D-FLBXSM (FUNGITELL)2024-06-05 18:06:35* Test Item Value Reference Range Interpretation Comme nts (1,3)-lmjc-D-kxzyms (test code = 47301-1) <31 pg/mL (1,3)-ayfh-H-yimsdc Interpretation (test code = 75699-5) Negative Negative INTERPRETIVE INFORMATION: (1,3)-ihys-B-tapfdq (Fungitell) ?Less than 31 pg/mL ................... Negative [...] Cryptococcus, which produce very low levels of (1,3)-qamn-U-dwaxoo. This test will not detect the zygomycetes, such as Absidia, Mucor, and Rhizopus, which are not known to produce (1,3)-dfbs-S-cmiimj. In addition, the yeast phase of Blastomyces dermatitidis produces little (1,3)-lwby-F-oujrtz and may not be detected by the assay.Performed By: [facility] [place] [id number] Director: Jaskaran Anguiano MD, PhDCLIA Number: [id number] [facility] HospitalMagnesium2025-[facility]-25 09:27:04* Test Item Value Reference Range Interpretation Comme nts MAGNESIUM (test code = 6127107864) 2.2 mg/dL 1.7-2.4 Lab Interpretation (test cod e = 01618-2) Normal [facility] HospitalBasi Metabolic Panel (NA, K, CL, CO2, GLUCOSE, BUN, CREATININE, CA)2024-06-05 09:27:04* Test Item Value Reference Range Interpretation Comme nts NA (test code = 1649133615) 138 mmol/L 135-145 K (test code = 8203596189) 4.5 mmol/L 3.5-5.0 CL (test code = 8437041130) 109 mmol/L 98-108 H CO2 TOTAL (test code = 9538671116) 23 mmol/L 23-31 AGAP (test code = 7584231271) 6 2-16 BUN (test code = 9070505094) 37 mg/dL 7-23 H GLUCOSE (test code = 0899201161) 96 mg/dL 70-110 CREATININE (test code = 2160-0) 1.58 mg/dL 0.50-1.04 H CALCIUM (test code = 7284071784) 9.8 mg/dL 8.6-10.6 eGFR (test code = 03577-3) 37.1 mL/min/1.73m2 CKD-EPI eGFR (2020). Assuming creatinine has been stable day-to-day for at least three months, the eGFR indicates Category G3b (30 - 44 mL/min/1.73 m2) Lab Interpretation (test code = 27659-6) Abnormal [facility] HospitalProthrombin Time / [id number] 09:10:41* Test Item Value Reference Range Interpretation Comme [facility] PROTIME PATIENT (test code = 5964-2) 10.8 10.1-12.6 INR (test code = 6301-6) 1 <=4.5 Normal INR <1.1; Warfarin Therapeutic range 2.0 to 3.0 or 2.5 to 3.5, depending upon the indications. Lab Interpretation (test code = 72069-7) Normal [facility] HospitalaPTT2025-04-25 09:10:41* Test Item Value Reference Range Interpretation Comme nts APTT Patient (test code = 3173-2) 26 26-36 Lab Interpretation (test cod e = 64866-0) Normal [facility] HospitalCbc with [id number] 09:04:37* Test Item Value Reference Range Interpretation [...] 32.9 g/dL 31.6-35.1 RDW-SD (test code = 01970-1) 51.3 fL 39.0-49.9 H RDW-CV (test code = 788-0) 14.3 % 12.0-15.5 PLT (test code = 777-3) 193 166-358 MPV (test code = 89628-1) 10.8 fL 9.5-12.9 NRBC/100 WBC (test code = 5197317287) 0 0.0-10.0 NRBC x10^3 (test code = 6337078052) See_Comment [Automated messa ge] The system which generated this result transmitted reference range: 10*3/?L. The reference range was not used to interpret this result as normal/abnormal. GRAN MAT (NEUT) % (test code = 770-8) 73.1 % IMM GRAN % (test code = 7300629085) 0.3 % LYMPH % (test code = 736-9) 16.5 % MONO % (test code = 5905-5) 8.3 % EOS % (test code = 713-8) 0.8 % BASO % (test code = 706-2) 1 % GRAN MAT x10^3(ANC) (test code = 0306619387) 4.39 10*3/uL 1.88-7.09 IMM GRAN x10^3 (test code = 0250690633) 0.00-0.06 LYMPH x10^3 (test code = 731-0) 0.99 10*3/uL 1.32-3.29 L MONO x10^3 (test code = 742-7) 0.5 10*3/uL 0.33-0.92 EOS x10^3 (test code = 711-2) 0.05 10*3/uL 0.03-0.39 BASO x10^3 (test code = 704-7) 0.06 10*3/uL 0.01-0.07 Lab Interpretation (test code = 64974-5) Abnormal [facility] HospitalTransthoracic echo (TTE)2024-06-04 22:45:29* Test Item Value Reference Range Interpretation Comme nts Height (test code = 6895518956) 63 in Weight (test code = 5917015432) 125 lbs Systolic BP (test code = 6620162172) 112 mmHg Diastolic BP (test code = 0087816291) 72 mmHg Heart Rate (test code = 3436470414) 89 bpm LVOT stroke volume (test code = 1745835973) 66.2 cm3 EF(Teich) (test code = 0653208882) 85.3 % LVIDD (test code = 6544202942) 3.3 cm LVIDS (test code = 2004709856) 1.54 cm Left Ventricular End Systolic Volume by Teichholz Method (test code = 4753973) 6.5 mL Left Ventricular End Diastolic Volume by Teichholz Method (test code = 8976448) 44.2 mL IVS (test code = 3159979520) 1.77 cm LVPWD (test code = 3141150392) 1.31 cm LVOT diameter (test code = 7012833486) 1.71 cm LVOT area (test code = 7114012193) 2.29 cm2 FS (test code = 6018033125) 53 % MV Peak E Barber (test code = 7232753788) 70.6 cm/s E wave decelartion time (test code = 9057961964) 0.15 s MV E/e' septal (test code = 8105972663) 4.3 cm/s LA Volume Index (BP) (test code = 5670986861) 32.1 mL/m2 LA volume (BP) (test code = 0851500460) 50.8 mL LVOT peak barber (test code = 5827846300) 151.9 cm/s LVOT mn grad (test code = 5110202361) 4.3 mmHg LV GLS Endo Peak A2C () (test code = 9711414846) -7.6 % LV GLS Endo Peak A3C () (test code = 4068995453) -7 % LV GLS Endo Peak A4C () (test code = 4131850857) -7.8 % LV GLS Endo Peak Avg () (test code = 7522008522) -7.5 % BSA (test code = 1069406060) 1.58 m2 LAV(MOD-sp2) (test code = 9817742387) 51 mL LAV(MOD-sp4) (test code = 9707220591) 46.3 mL Tapse (test code = 2983842261) 1.73 cm Aortic valve mean velocity (test code = 7957567943) 217 cm/s Ao peak barber (test code = 5665898582) 322.8 cm/s Ao VTI (test code = 8313443057) 54.8 cm AV LVOT peak gradient (test code = 4461387925) 9.2 mmHg LVOT peak VTI (test code = 2369235799) 28.9 cm AV area by cont VTI (test code = 0953149528) 1.2 cm2 AV area peak barber (test code = 8841174201) 1.1 cm2 LV V1 mean (test code = 1550825781) 92.2 cm/s Ao max PG (test code = 0796042809) 41.7 mm[Hg] MV Prop V (test code = 2546104426) 80.1 cm/s Ao root diam (test code = 3093650290) 2.9 cm AV peak gradient (test code = 9950691197) 41.7 mmHg AV valve area (test code = 3438758664) 1.21 cm2 AV mean gradient (test code = 0949387466) 21.7 mmHg Aortic root (test code = 7286086188) 2.9 cm Ao root annulus (test code = 1750681968) 2.9 cm PW (test code = 5446233359) 1.31 cm 0.6-1.1 EF - 2D (test code = 57826359) 85.3 % Interventricular Septum Diastolic Thickness by 2D (test code = 4992682) 1.77 cm GLS (test code = 5092318633) -8 % Radiology Study observation (narrative) (test code = 28563-0) GARRY (test code = GARRY) ?Left?Ventricle: Left [...] enhancing agent used. Patient exhibited sinus rhythm. [facility] Immunodeficiency Virus 1 (Hiv-1) by Quantitative [id number] 22:24:52* Test Item Value Reference Range Interpretation Comme nts HIV-1 Quantitative NAAT - copies/mL (test code = 35395-7) 38 Not Detected Copies/mL H HIV-1 Quantitative Interpretation (test code = 72887-7) Detected Not Detected A GARRY (test code [...] clinically indicated. Lab Interpretation (test code = 33678-0) Abnormal [facility] HospitalLipid Panel (46688)(Total Cholesterol, Triglycerides, HDL)2024-06-04 19:54:26* Test Item Value Reference Range Interpretation Comme nts CHOL (test code = 4186183278) 204 mg/dL 120-200 H HDL (test code = 5676094685) 102 mg/dL >=50 HDLC RATIO (test code = 7936755549) 2 <=4.5 TRIG (test code = 9592942581) 52 mg/dL 30-170 LDL CHOL (test code = 76896-0) 92 mg/dL <=160 VLDL (test code = 3943582459) 10 mg/dL 5-60 Lab Interpretation (test cod e = 85373-5) Abnormal [facility] HospitalCd4 Subset [id number] 15:26:02* Test Item Value Reference Range Interpretation Comme nts CD4 % (test code = 8123-2) 18 % 31-60 L CD4 Absolute (test code = 58830-4) 41 410-1590 L Lab Interpretation (test cod e = 51665-0) Abnormal [facility] HospitalSyphilis IgG/[id number] 14:10:37* Test Item Value Reference Range Interpretation Comme nts Syphilis IgG/IgM (test code = 43429-5) Nonreactive Nonreactive Syphilis Serology Interpretation (test code = 73289-6) No serologic evidence of syphilis. If recent exposure is suspected, retest in 2 to 4 weeks. GARRY (test code = GARRY) ? [facility] HospitalMagnesium2025-04-24 10:23:58* Test Item Value Reference Range Interpretation Comme nts MAGNESIUM (test code = 9413548779) 2.8 mg/dL 1.7-2.4 H Lab Interpretation (test cod e = 54426-0) Abnormal [facility] (NA, K, CL, CO2, GLUCOSE, BUN, CREATININE, CA)2024-06-04 10:23:58* Test Item Value Reference Range Interpretation Comme nts NA (test code = 2822766485) 136 mmol/L 135-145 K (test code = 4524375976) 4.6 mmol/L 3.5-5.0 CL (test code = 3212223079) 108 mmol/L 98-108 CO2 TOTAL (test code = 9239687358) 18 mmol/L 23-31 L AGAP (test code = 8333981033) 10 2-16 BUN (test code = 7840424988) 32 mg/dL 7-23 H GLUCOSE (test code = 8151315687) 163 mg/dL 70-110 H CREATININE (test code = 2160-0) 1.36 mg/dL 0.50-1.04 H CALCIUM (test code = 9176774198) 9.8 mg/dL 8.6-10.6 eGFR (test code = 41340-1) 44.4 mL/min/1.73m2 Lab Interpretation (test cod e = 62432-0) Abnormal [facility] with [id number] 10:13:16* Test Item Value Reference Range Interpretation [...] 33.3 g/dL 31.6-35.1 RDW-SD (test code = 85793-8) 49.1 fL 39.0-49.9 RDW-CV (test code = 788-0) 14 % 12.0-15.5 PLT (test code = 777-3) 194 166-358 MPV (test code = 56696-3) 10.9 fL 9.5-12.9 NRBC/100 WBC (test code = 4209566321) 0 0.0-10.0 NRBC x10^3 (test code = 2397579095) See_Comment [Automated Medlioa ge] The system which generated this result transmitted reference range: 10*3/?L. The reference range was not used to interpret this result as normal/abnormal. GRAN MAT (NEUT) % (test code = 770-8) 84.8 % IMM GRAN % (test code = 7382904712) 0.7 % LYMPH % (test code = 736-9) 9.2 % MONO % (test code = 5905-5) 4.6 % EOS % (test code = 713-8) 0 % BASO % (test code = 706-2) 0.7 % GRAN MAT x10^3(ANC) (test code = 3115270043) 2.6 10*3/uL 1.88-7.09 IMM GRAN x10^3 (test code = 8861200051) 0.00-0.06 LYMPH x10^3 (test code = 731-0) 0.28 10*3/uL 1.32-3.29 L MONO x10^3 (test code = 742-7) 0.14 10*3/uL 0.33-0.92 L EOS x10^3 (test code = 711-2) 0.03-0.39 L BASO x10^3 (test code = 704-7) 0.01-0.07 Lab Interpretation (test code = 77671-3) Abnormal [facility] HospitalTroponin [id number] 06:36:35* Test Item Value Reference Range Interpretation Comme nts TROPONIN I (test code = 9693295382) 0.092 ng/mL <=0.034 H GARRY (test code [...] of biotin. Lab Interpretation (test code = 54860-0) Abnormal [facility] HospitalXR Chest 1 [id number] 04:50:33Exam: Chest (1 View), 06/03/2024 5:45 PM. Ordering Physician: KENJI LORD. History: sob . Technique: One view of the chest. Comparison: Chest radiograph 06/08/2021. Findings: No focal consolidation. No pneumothorax or effusion. Normal size of thecardiac silhouette. Atherosclerosis of the aorta. No acute osseous finding. [facility] HospitalGlycosylated Hemoglobin [id number] 03:47:18 * Test Item Value Reference Range Interpretation Comme [facility] HGB A1C (test code = 4548-4) 5.8 % 4.0-5.7 H GARRY (test code = GARRY) Reference RangesNormal: <5.7%Prediabetes: 5.7 - 6.4%Diabetes: > 6.5% Lab Interpretation (test code = 41563-7) Abnormal [facility] HospitalTroponin [id number] 00:00:09* Test Item Value Reference Range Interpretation Comme [facility] TROPONIN I (test code = 4696016767) 0.12 ng/mL <=0.034 H GARRY (test code [...] of biotin. Lab Interpretation (test code = 02103-3) Abnormal [facility] HospitalCOMPREHENSIVE METABOLIC [id number] 00:00:00* Test Item Value Reference Range Interpretation Comme [facility] GLUCOSE (test code = 2345-7) 96 mg/dL UREA NITROGEN (BUN) (test code = 3094-0) 18 mg/dL CREATININE (test code = 2160-0) 1.21 mg/dL EGFR (test code = 32267-7) 51 mL/min/1.73m2 BUN/CREATININE RATIO (test code = 3097-3) 15 (calc) SODIUM (test code = 2951-2) 143 mmol/L POTASSIUM (test code = 2823-3) 4.2 mmol/L CHLORIDE (test code = 2075-0) 110 mmol/L CARBON DIOXIDE (test code = 2027-9) 22 mmol/L CALCIUM (test code = 16521-0) 11.1 mg/dL PROTEIN, TOTAL (test code = 2885-2) 8.8 g/dL ALBUMIN (test code = 1751-7) 4.5 g/dL GLOBULIN (test code = 43319-4) 4.3 g/dL(calc) ALBUMIN/GLOBULIN RATIO (test code = 1759-0) 1.0 (calc) BILIRUBIN, TOTAL (test code = 1975-2) 0.8 mg/dL ALKALINE PHOSPHATASE (test code = 6768-6) 85 U/L AST (test code = 1920-8) 21 U/L ALT (test code = 1742-6) 14 U/L Delfino OrtaHEMOGLOBIN [id number] 00:00:00* Test Item Value Reference Range Interpretation Comme [facility] HEMOGLOBIN A1c (test code = 4548-4) 6.2 % Delfino OrtaLIPID [id number] 00:00:00* Test Item Value Reference Range Interpretation Comme [facility] CHOLESTEROL, TOTAL (test cod e = 3-3) 215 mg/dL HDL CHOLESTEROL (test code = 2084-9) 123 mg/dL TRIGLYCERIDES (test code = 2571-8) 70 mg/dL LDL-CHOLESTEROL (test code = 69506-0) 77 mg/dL(calc) CHOL/HDLC RATIO (test code = 9830-1) 1.7 (calc) NON HDL CHOLESTEROL (test co de = 23337-2) 92 mg/dL(calc) Delfino OrtaCBC (INCLUDES DIFF/PLT)2024-06-04 00:00:00* [...] cells/uL ABSOLUTE BAND NEUTROPHILS (test code = 62293-5) DNR cells/uL ABSOLUTE METAMYELOCYTES (yohannes t code = 59867-8) DNR cells/uL ABSOLUTE MYELOCYTES (test code = 71351-3) DNR cells/uL ABSOLUTE PROMYELOCYTES (test code = 69142-4) DNR cells/uL ABSOLUTE LYMPHOCYTES (test code = 731-0) 1003 cells/uL ABSOLUTE MONOCYTES (test cod e = 742-7) 410 cells/uL ABSOLUTE EOSINOPHILS (test code = 711-2) 29 cells/uL ABSOLUTE BASOPHILS (test cod e = 704-7) 51 cells/uL ABSOLUTE BLASTS (test code = 25755-1) DNR cells/uL ABSOLUTE NUCLEATED RBC (test code = 03001-5) DNR cells/uL NEUTROPHILS (test code = 770-8) 73.8 % BAND NEUTROPHILS (test code = 764-1) DNR % METAMYELOCYTES (test code = 740-1) DNR % MYELOCYTES (test code = 749-2) DNR % PROMYELOCYTES (test code = 783-1) DNR % LYMPHOCYTES (test code = 736-9) 17.6 % REACTIVE LYMPHOCYTES (test code = 74819-1) DNR % MONOCYTES (test code = 5905-5) 7.2 % EOSINOPHILS (test code = 713-8) 0.5 % BASOPHILS (test code = 706-2) 0.9 % BLASTS (test code = 709-6) DNR % NUCLEATED RBC (test code = 25753-2) DNR /100WBC COMMENT(S) (test code = 8251-1) DNR Delfino OrtaPTH, INTACT (ICMA) AND IONIZED [id number] 00:00:00* Test Item Value Reference Range Interpretation Comme nts PARATHYROID HORMONE, INTACT (test code = 2731-8) 71 pg/mL CALCIUM (test code = 75379-6) 11.1 mg/dL CALCIUM, IONIZED (test code = 75740-5) 5.9 mg/dL Delfino Schumacher AustinPHOSPHATE ( PHOSPHORUS)2024-06-04 00:00:00* Test Item Value Reference Range Interpretation Comme nts PHOSPHATE ( PHOSPHORUS) (t est code = 2777-1) 2.6 mg/dL Delfino OrtaHCV RNA, QUANTITATIVE REAL TIME [id number] 00:00:00* Test Item Value Reference Range Interpretation Comme nts HCV RNA, QUANTITATIVE REAL TIME PCR (test code = 00102-6) <15 NOT DETECTED IU/mL HCV RNA, QUANTITATIVE REAL TIME PCR (test code = 49043-6) <1.18 NOT DETECTED LogIU/mL Delfino OrtaLYMPHOCYTE SUBSET PANEL 00:00:00* Test Item Value Reference Range Interpretation Comme nts % CD4 (test code = 8123-2) 23 % ABSOLUTE CD4+ CELLS (test co de = 53690-7) 212 cells/uL % CD8 (test code = 8101-8) 57 % ABSOLUTE CD8+ CELLS (test co de = 31291-6) 534 cells/uL CD4/CD8 RATIO (test code = 20111-7) 0.40 ABSOLUTE LYMPHOCYTES (test c ode = 731-0) 943 cells/uL COMMENT(S) (test code = 8251-1) DNR Delfino OrtaCOMPREHENSIVE METABOLIC [id number] 00:00:00* Test Item Value Reference Range Interpretation Comme nts GLUCOSE (test code = 2345-7) 96 mg/dL UREA NITROGEN (BUN) (test code = 3094-0) 18 mg/dL CREATININE (test code = 2160-0) 1.21 mg/dL EGFR (test code = 88033-4) 51 mL/min/1.73m2 BUN/CREATININE RATIO (test code = 3097-3) 15 (calc) SODIUM (test code = 2951-2) 143 mmol/L POTASSIUM (test code = 2823-3) 4.2 mmol/L CHLORIDE (test code = 2075-0) 110 mmol/L CARBON DIOXIDE (test code = 2027-9) 22 mmol/L CALCIUM (test code = 69560-5) 11.1 mg/dL PROTEIN, TOTAL (test code = 2885-2) 8.8 g/dL ALBUMIN (test code = 1751-7) 4.5 g/dL GLOBULIN (test code = 21688-3) 4.3 g/dL(calc) ALBUMIN/GLOBULIN RATIO (test code = 1759-0) 1.0 (calc) BILIRUBIN, TOTAL (test code = 1975-2) 0.8 mg/dL ALKALINE PHOSPHATASE (test code = 6768-6) 85 U/L AST (test code = 1920-8) 21 U/L ALT (test code = 1742-6) 14 U/L Delfino OrtaHEMOGLOBIN [id number] 00:00:00* Test Item Value Reference Range Interpretation Comme nts HEMOGLOBIN A1c (test code = 4548-4) 6.2 % Delfino OrtaLIPID [id number] 00:00:00* Test Item Value Reference Range Interpretation Comme [facility] CHOLESTEROL, TOTAL (test cod e = 2093-3) 215 mg/dL HDL CHOLESTEROL (test code = 2085-9) 123 mg/dL TRIGLYCERIDES (test code = 2571-8) 70 mg/dL LDL-CHOLESTEROL (test code = 04565-0) 77 mg/dL(calc) CHOL/HDLC RATIO (test code = 9830-1) 1.7 (calc) NON HDL CHOLESTEROL (test co de = 90206-0) 92 mg/dL(calc) Delfino OrtaCBC (INCLUDES DIFF/PLT)2024-06-04 00:00:00* [...] cells/uL ABSOLUTE BAND NEUTROPHILS (test code = 01470-5) DNR cells/uL ABSOLUTE METAMYELOCYTES (yohannes t code = 31670-0) DNR cells/uL ABSOLUTE MYELOCYTES (test code = 41885-8) DNR cells/uL ABSOLUTE PROMYELOCYTES (test code = 42820-9) DNR cells/uL ABSOLUTE LYMPHOCYTES (test code = 731-0) 1003 cells/uL ABSOLUTE MONOCYTES (test cod e = 742-7) 410 cells/uL ABSOLUTE EOSINOPHILS (test code = 711-2) 29 cells/uL ABSOLUTE BASOPHILS (test cod e = 704-7) 51 cells/uL ABSOLUTE BLASTS (test code = 11688-4) DNR cells/uL ABSOLUTE NUCLEATED RBC (test code = 01389-4) DNR cells/uL NEUTROPHILS (test code = 770-8) 73.8 % BAND NEUTROPHILS (test code = 764-1) DNR % METAMYELOCYTES (test code = 740-1) DNR % MYELOCYTES (test code = 749-2) DNR % PROMYELOCYTES (test code = 783-1) DNR % LYMPHOCYTES (test code = 736-9) 17.6 % REACTIVE LYMPHOCYTES (test code = 24094-6) DNR % MONOCYTES (test code = 5905-5) 7.2 % EOSINOPHILS (test code = 713-8) 0.5 % BASOPHILS (test code = 706-2) 0.9 % BLASTS (test code = 709-6) DNR % NUCLEATED RBC (test code = 87599-1) DNR /100WBC COMMENT(S) (test code = 8251-1) DNR Delfino OrtaPTH, INTACT (ICMA) AND IONIZED [id number] 00:00:00* Test Item Value Reference Range Interpretation Comme nts PARATHYROID HORMONE, INTACT (test code = 2731-8) 71 pg/mL CALCIUM (test code = 46610-1) 11.1 mg/dL CALCIUM, IONIZED (test code = 11570-7) 5.9 mg/dL Delfino Schumacher AustinPHOSPHATE ( PHOSPHORUS)2024-06-04 00:00:00* Test Item Value Reference Range Interpretation Comme nts PHOSPHATE ( PHOSPHORUS) (t est code = 2777-1) 2.6 mg/dL Delfino OrtaHCV RNA, QUANTITATIVE REAL TIME [id number] 00:00:00* Test Item Value Reference Range Interpretation Comme nts HCV RNA, QUANTITATIVE REAL TIME PCR (test code = 73835-8) <15 NOT DETECTED IU/mL HCV RNA, QUANTITATIVE REAL TIME PCR (test code = 11480-4) <1.18 NOT DETECTED LogIU/mL Delfino OrtaLYMPHOCYTE SUBSET PANEL [id number] 00:00:00* Test Item Value Reference Range Interpretation Comme nts % CD4 (test code = 8123-2) 23 % ABSOLUTE CD4+ CELLS (test co de = 55184-6) 212 cells/uL % CD8 (test code = 8101-8) 57 % ABSOLUTE CD8+ CELLS (test co de = 47001-8) 534 cells/uL CD4/CD8 RATIO (test code = 64210-0) 0.40 ABSOLUTE LYMPHOCYTES (test c ode = 731-0) 943 cells/uL COMMENT(S) (test code = 8251-1) DNR Delfino OrtaCOMPREHENSIVE METABOLIC [id number] 00:00:00* Test Item Value Reference Range Interpretation Comme nts GLUCOSE (test code = 2345-7) 96 mg/dL UREA NITROGEN (BUN) (test code = 3094-0) 18 mg/dL CREATININE (test code = 2160-0) 1.21 mg/dL EGFR (test code = 48452-6) 51 mL/min/1.73m2 BUN/CREATININE RATIO (test code = 3097-3) 15 (calc) SODIUM (test code = 2951-2) 143 mmol/L POTASSIUM (test code = 2823-3) 4.2 mmol/L CHLORIDE (test code = 2075-0) 110 mmol/L CARBON DIOXIDE (test code = 2027-9) 22 mmol/L CALCIUM (test code = 24658-7) 11.1 mg/dL PROTEIN, TOTAL (test code = 2885-2) 8.8 g/dL ALBUMIN (test code = 1751-7) 4.5 g/dL GLOBULIN (test code = 39943-3) 4.3 g/dL(calc) ALBUMIN/GLOBULIN RATIO (test code = 1759-0) 1.0 (calc) BILIRUBIN, TOTAL (test code = 1975-2) 0.8 mg/dL ALKALINE PHOSPHATASE (test code = 6768-6) 85 U/L AST (test code = 1920-8) 21 U/L ALT (test code = 1742-6) 14 U/L Delfino OrtaHEMOGLOBIN [id number] 00:00:00* Test Item Value Reference Range Interpretation Comme nts HEMOGLOBIN A1c (test code = 4548-4) 6.2 % Delfino OrtaLIPID [id number] 00:00:00* Test Item Value Reference Range Interpretation Comme nts CHOLESTEROL, TOTAL (test cod e = 2093-3) 215 mg/dL HDL CHOLESTEROL (test code = 2085-9) 123 mg/dL TRIGLYCERIDES (test code = 2571-8) 70 mg/dL LDL-CHOLESTEROL (test code = 08311-6) 77 mg/dL(calc) CHOL/HDLC RATIO (test code = 9830-1) 1.7 (calc) NON HDL CHOLESTEROL (test co de = 96496-0) 92 mg/dL(calc) Delfino OrtaCBC (INCLUDES DIFF/PLT)2024-06-04 00:00:00* [...] cells/uL ABSOLUTE BAND NEUTROPHILS (test code = 81233-2) DNR cells/uL ABSOLUTE METAMYELOCYTES (yohannes t code = 53216-1) DNR cells/uL ABSOLUTE MYELOCYTES (test code = 51461-8) DNR cells/uL ABSOLUTE PROMYELOCYTES (test code = 96667-1) DNR cells/uL ABSOLUTE LYMPHOCYTES (test code = 731-0) 1003 cells/uL ABSOLUTE MONOCYTES (test cod e = 742-7) 410 cells/uL ABSOLUTE EOSINOPHILS (test code = 711-2) 29 cells/uL ABSOLUTE BASOPHILS (test cod e = 704-7) 51 cells/uL ABSOLUTE BLASTS (test code = 77359-3) DNR cells/uL ABSOLUTE NUCLEATED RBC (test code = 23874-2) DNR cells/uL NEUTROPHILS (test code = 770-8) 73.8 % BAND NEUTROPHILS (test code = 764-1) DNR % METAMYELOCYTES (test code = 740-1) DNR % MYELOCYTES (test code = 749-2) DNR % PROMYELOCYTES (test code = 783-1) DNR % LYMPHOCYTES (test code = 736-9) 17.6 % REACTIVE LYMPHOCYTES (test code = 35314-9) DNR % MONOCYTES (test code = 5905-5) 7.2 % EOSINOPHILS (test code = 713-8) 0.5 % BASOPHILS (test code = 706-2) 0.9 % BLASTS (test code = 709-6) DNR % NUCLEATED RBC (test code = 75643-8) DNR /100WBC COMMENT(S) (test code = 8251-1) DNR Delfino OrtaPTH, INTACT (ICMA) AND IONIZED [id number] 00:00:00* Test Item Value Reference Range Interpretation Comme nts PARATHYROID HORMONE, INTACT (test code = 2731-8) 71 pg/mL CALCIUM (test code = 73720-4) 11.1 mg/dL CALCIUM, IONIZED (test code = 99054-8) 5.9 mg/dL Delfino Schumacher AustinPHOSPHATE ( PHOSPHORUS)2024-06-04 00:00:00* Test Item Value Reference Range Interpretation Comme nts PHOSPHATE ( PHOSPHORUS) (t est code = 2777-1) 2.6 mg/dL Delfino OrtaHCV RNA, QUANTITATIVE REAL TIME [id number] 00:00:00* Test Item Value Reference Range Interpretation Comme nts HCV RNA, QUANTITATIVE REAL TIME PCR (test code = 32865-0) <15 NOT DETECTED IU/mL HCV RNA, QUANTITATIVE REAL TIME PCR (test code = 67447-1) <1.18 NOT DETECTED LogIU/mL Delfino OrtaLYMPHOCYTE SUBSET PANEL [id number] 00:00:00* Test Item Value Reference Range Interpretation Comme nts % CD4 (test code = 8123-2) 23 % ABSOLUTE CD4+ CELLS (test co de = 79356-4) 212 cells/uL % CD8 (test code = 8101-8) 57 % ABSOLUTE CD8+ CELLS (test co de = 79137-1) 534 cells/uL CD4/CD8 RATIO (test code = 54116-4) 0.40 ABSOLUTE LYMPHOCYTES (test c ode = 731-0) 943 cells/uL COMMENT(S) (test code = 8251-1) DNR Delfino OrtaCOMPREHENSIVE METABOLIC [id number] 00:00:00* Test Item Value Reference Range Interpretation Comme nts GLUCOSE (test code = 2345-7) 96 mg/dL UREA NITROGEN (BUN) (test code = 3094-0) 18 mg/dL CREATININE (test code = 2160-0) 1.21 mg/dL EGFR (test code = 05505-4) 51 mL/min/1.73m2 BUN/CREATININE RATIO (test code = 3097-3) 15 (calc) SODIUM (test code = 2951-2) 143 mmol/L POTASSIUM (test code = 2823-3) 4.2 mmol/L CHLORIDE (test code = 2075-0) 110 mmol/L CARBON DIOXIDE (test code = 8-9) 22 mmol/L CALCIUM (test code = 45171-3) 11.1 mg/dL PROTEIN, TOTAL (test code = 2885-2) 8.8 g/dL ALBUMIN (test code = 1751-7) 4.5 g/dL GLOBULIN (test code = 59612-0) 4.3 g/dL(calc) ALBUMIN/GLOBULIN RATIO (test code = 1759-0) 1.0 (calc) BILIRUBIN, TOTAL (test code = 1975-2) 0.8 mg/dL ALKALINE PHOSPHATASE (test code = 6768-6) 85 U/L AST (test code = 1920-8) 21 U/L ALT (test code = 1742-6) 14 U/L Delfino OrtaHEMOGLOBIN [id number] 00:00:00* Test Item Value Reference Range Interpretation Comme nts HEMOGLOBIN A1c (test code = 4548-4) 6.2 % Delfino OrtaLIPID [id number] 00:00:00* Test Item Value Reference Range Interpretation Comme nts CHOLESTEROL, TOTAL (test cod e = 2093-3) 215 mg/dL HDL CHOLESTEROL (test code = 2085-9) 123 mg/dL TRIGLYCERIDES (test code = 2571-8) 70 mg/dL LDL-CHOLESTEROL (test code = 90885-9) 77 mg/dL(calc) CHOL/HDLC RATIO (test code = 9830-1) 1.7 (calc) NON HDL CHOLESTEROL (test co de = 03591-6) 92 mg/dL(calc) Delfino OrtaCBC (INCLUDES DIFF/PLT)2024-06-04 00:00:00* [...] cells/uL ABSOLUTE BAND NEUTROPHILS (test code = 75292-9) DNR cells/uL ABSOLUTE METAMYELOCYTES (yohannes t code = 28029-5) DNR cells/uL ABSOLUTE MYELOCYTES (test code = 03080-3) DNR cells/uL ABSOLUTE PROMYELOCYTES (test code = 84045-7) DNR cells/uL ABSOLUTE LYMPHOCYTES (test code = 731-0) 1003 cells/uL ABSOLUTE MONOCYTES (test cod e = 742-7) 410 cells/uL ABSOLUTE EOSINOPHILS (test code = 711-2) 29 cells/uL ABSOLUTE BASOPHILS (test cod e = 704-7) 51 cells/uL ABSOLUTE BLASTS (test code = 09121-8) DNR cells/uL ABSOLUTE NUCLEATED RBC (test code = 07909-7) DNR cells/uL NEUTROPHILS (test code = 770-8) 73.8 % BAND NEUTROPHILS (test code = 764-1) DNR % METAMYELOCYTES (test code = 740-1) DNR % MYELOCYTES (test code = 749-2) DNR % PROMYELOCYTES (test code = 783-1) DNR % LYMPHOCYTES (test code = 736-9) 17.6 % REACTIVE LYMPHOCYTES (test code = 90703-1) DNR % MONOCYTES (test code = 5905-5) 7.2 % EOSINOPHILS (test code = 713-8) 0.5 % BASOPHILS (test code = 706-2) 0.9 % BLASTS (test code = 709-6) DNR % NUCLEATED RBC (test code = 77045-7) DNR /100WBC COMMENT(S) (test code = 8251-1) DNR Delfino F AustinPTH, INTACT (ICMA) AND IONIZED [id number] 00:00:00* Test Item Value Reference Range Interpretation Comme nts PARATHYROID HORMONE, INTACT (test code = 2731-8) 71 pg/mL CALCIUM (test code = 69128-8) 11.1 mg/dL CALCIUM, IONIZED (test code = 68757-9) 5.9 mg/dL Delfino Schumacher AustinPHOSPHATE ( PHOSPHORUS)2024-06-04 00:00:00* Test Item Value Reference Range Interpretation Comme nts PHOSPHATE ( PHOSPHORUS) (t est code = 2777-1) 2.6 mg/dL Delfino OrtaHCV RNA, QUANTITATIVE REAL TIME [id number] 00:00:00* Test Item Value Reference Range Interpretation Comme nts HCV RNA, QUANTITATIVE REAL TIME PCR (test code = 10417-0) <15 NOT DETECTED IU/mL HCV RNA, QUANTITATIVE REAL TIME PCR (test code = 88414-9) <1.18 NOT DETECTED LogIU/mL Delfino OrtaLYMPHOCYTE SUBSET PANEL [id number] 00:00:00* Test Item Value Reference Range Interpretation Comme nts % CD4 (test code = 8123-2) 23 % ABSOLUTE CD4+ CELLS (test co de = 29578-5) 212 cells/uL % CD8 (test code = 8101-8) 57 % ABSOLUTE CD8+ CELLS (test co de = 96823-3) 534 cells/uL CD4/CD8 RATIO (test code = 62771-2) 0.40 ABSOLUTE LYMPHOCYTES (test c ode = 731-0) 943 cells/uL COMMENT(S) (test code = 8251-1) DNR Delfino OrtaCOMPREHENSIVE METABOLIC [id number] 00:00:00* Test Item Value Reference Range Interpretation Comme nts GLUCOSE (test code = 2345-7) 96 mg/dL UREA NITROGEN (BUN) (test code = 3094-0) 18 mg/dL CREATININE (test code = 2160-0) 1.21 mg/dL EGFR (test code = 80391-3) 51 mL/min/1.73m2 BUN/CREATININE RATIO (test code = 3097-3) 15 (calc) SODIUM (test code = 2951-2) 143 mmol/L POTASSIUM (test code = 2823-3) 4.2 mmol/L CHLORIDE (test code = 2075-0) 110 mmol/L CARBON DIOXIDE (test code = 8-9) 22 mmol/L CALCIUM (test code = 45032-7) 11.1 mg/dL PROTEIN, TOTAL (test code = 2885-2) 8.8 g/dL ALBUMIN (test code = 1751-7) 4.5 g/dL GLOBULIN (test code = 66993-2) 4.3 g/dL(calc) ALBUMIN/GLOBULIN RATIO (test code = 1759-0) 1.0 (calc) BILIRUBIN, TOTAL (test code = 1975-2) 0.8 mg/dL ALKALINE PHOSPHATASE (test code = 6768-6) 85 U/L AST (test code = 1920-8) 21 U/L ALT (test code = 1742-6) 14 U/L Delfino OrtaHEMOGLOBIN [id number] 00:00:00* Test Item Value Reference Range Interpretation Comme carlito HEMOGLOBIN A1c (test code = 4548-4) 6.2 % Delfino OrtaLIPID [id number] 00:00:00* Test Item Value Reference Range Interpretation Comme nts CHOLESTEROL, TOTAL (test cod e = 2093-3) 215 mg/dL HDL CHOLESTEROL (test code = 2085-9) 123 mg/dL TRIGLYCERIDES (test code = 2571-8) 70 mg/dL LDL-CHOLESTEROL (test code = 39510-6) 77 mg/dL(calc) CHOL/HDLC RATIO (test code = 9830-1) 1.7 (calc) NON HDL CHOLESTEROL (test co de = 47643-6) 92 mg/dL(calc) Delfino Schumacher [facility] (INCLUDES DIFF/PLT)2024-06-04 00:00:00* Test Item Value [...] cells/uL ABSOLUTE BAND NEUTROPHILS (test code = 19926-2) DNR cells/uL ABSOLUTE METAMYELOCYTES (yohannes t code = 52661-6) DNR cells/uL ABSOLUTE MYELOCYTES (test code = 50381-2) DNR cells/uL ABSOLUTE PROMYELOCYTES (test code = 19455-9) DNR cells/uL ABSOLUTE LYMPHOCYTES (test code = 731-0) 1003 cells/uL ABSOLUTE MONOCYTES (test cod e = 742-7) 410 cells/uL ABSOLUTE EOSINOPHILS (test code = 711-2) 29 cells/uL ABSOLUTE BASOPHILS (test cod e = 704-7) 51 cells/uL ABSOLUTE BLASTS (test code = 95085-8) DNR cells/uL ABSOLUTE NUCLEATED RBC (test code = 02167-5) DNR cells/uL NEUTROPHILS (test code = 770-8) 73.8 % BAND NEUTROPHILS (test code = 764-1) DNR % METAMYELOCYTES (test code = 740-1) DNR % MYELOCYTES (test code = 749-2) DNR % PROMYELOCYTES (test code = 783-1) DNR % LYMPHOCYTES (test code = 736-9) 17.6 % REACTIVE LYMPHOCYTES (test code = 13619-3) DNR % MONOCYTES (test code = 5905-5) 7.2 % EOSINOPHILS (test code = 713-8) 0.5 % BASOPHILS (test code = 706-2) 0.9 % BLASTS (test code = 709-6) DNR % NUCLEATED RBC (test code = 40952-8) DNR /100WBC COMMENT(S) (test code = 8251-1) DNR Delfino OrtaPTH, INTACT (ICMA) AND IONIZED [id number] 00:00:00* Test Item Value Reference Range Interpretation Comme carlito PARATHYROID HORMONE, INTACT (test code = 2731-8) 71 pg/mL CALCIUM (test code = 45349-6) 11.1 mg/dL CALCIUM, IONIZED (test code = 05938-1) 5.9 mg/dL Delfino Schumacher AustinPHOSPHATE ( PHOSPHORUS)2024-06-04 00:00:00* Test Item Value Reference Range Interpretation Comme nts PHOSPHATE ( PHOSPHORUS) (t est code = 2777-1) 2.6 mg/dL Delfino OrtaHCV RNA, QUANTITATIVE REAL TIME [id number] 00:00:00* Test Item Value Reference Range Interpretation Comme nts HCV RNA, QUANTITATIVE REAL TIME PCR (test code = 44368-7) <15 NOT DETECTED IU/mL HCV RNA, QUANTITATIVE REAL TIME PCR (test code = 36580-0) <1.18 NOT DETECTED LogIU/mL Delfino OrtaLYMPHOCYTE SUBSET PANEL 00:00:00* Test Item Value Reference Range Interpretation Comme nts % CD4 (test code = 8123-2) 23 % ABSOLUTE CD4+ CELLS (test co de = 96825-1) 212 cells/uL % CD8 (test code = 8101-8) 57 % ABSOLUTE CD8+ CELLS (test co de = 50197-7) 534 cells/uL CD4/CD8 RATIO (test code = 03479-6) 0.40 ABSOLUTE LYMPHOCYTES (test c ode = 731-0) 943 cells/uL COMMENT(S) (test code = 8251-1) DNR Delfino OrtaCOMPREHENSIVE METABOLIC [id number] 00:00:00* Test Item Value Reference Range Interpretation Comme nts GLUCOSE (test code = 2345-7) 96 mg/dL UREA NITROGEN (BUN) (test code = 3094-0) 18 mg/dL CREATININE (test code = 2160-0) 1.21 mg/dL EGFR (test code = 92373-8) 51 mL/min/1.73m2 BUN/CREATININE RATIO (test code = 3097-3) 15 (calc) SODIUM (test code = 2951-2) 143 mmol/L POTASSIUM (test code = 2823-3) 4.2 mmol/L CHLORIDE (test code = 2075-0) 110 mmol/L CARBON DIOXIDE (test code = 2027-9) 22 mmol/L CALCIUM (test code = 57398-2) 11.1 mg/dL PROTEIN, TOTAL (test code = 2885-2) 8.8 g/dL ALBUMIN (test code = 1751-7) 4.5 g/dL GLOBULIN (test code = 41545-8) 4.3 g/dL(calc) ALBUMIN/GLOBULIN RATIO (test code = 1759-0) 1.0 (calc) BILIRUBIN, TOTAL (test code = 1975-2) 0.8 mg/dL ALKALINE PHOSPHATASE (test code = 6768-6) 85 U/L AST (test code = 1920-8) 21 U/L ALT (test code = 1742-6) 14 U/L Delfino OrtaHEMOGLOBIN [id number] 00:00:00* Test Item Value Reference Range Interpretation Comme [facility] HEMOGLOBIN A1c (test code = 4548-4) 6.2 % Delfino OrtaLIPID [id number] 00:00:00* Test Item Value Reference Range Interpretation Comme [facility] CHOLESTEROL, TOTAL (test cod e = 2093-3) 215 mg/dL HDL CHOLESTEROL (test code = 2085-9) 123 mg/dL TRIGLYCERIDES (test code = 2571-8) 70 mg/dL LDL-CHOLESTEROL (test code = 73631-1) 77 mg/dL(calc) CHOL/HDLC RATIO (test code = 9830-1) 1.7 (calc) NON HDL CHOLESTEROL (test co de = 09786-9) 92 mg/dL(calc) Delfino OrtaCBC (INCLUDES DIFF/PLT)2024-06-04 00:00:00* Test Item Value Reference Range Interpretation Comme [facility] WHITE BLOOD CELL COUNT (test code = [...] cells/uL ABSOLUTE BAND NEUTROPHILS (test code = 30146-4) DNR cells/uL ABSOLUTE METAMYELOCYTES (yohannes t code = 53702-8) DNR cells/uL ABSOLUTE MYELOCYTES (test code = 59438-4) DNR cells/uL ABSOLUTE PROMYELOCYTES (test code = 28960-1) DNR cells/uL ABSOLUTE LYMPHOCYTES (test code = 731-0) 1003 cells/uL ABSOLUTE MONOCYTES (test cod e = 742-7) 410 cells/uL ABSOLUTE EOSINOPHILS (test code = 711-2) 29 cells/uL ABSOLUTE BASOPHILS (test cod e = 704-7) 51 cells/uL ABSOLUTE BLASTS (test code = 41355-7) DNR cells/uL ABSOLUTE NUCLEATED RBC (test code = 40131-1) DNR cells/uL NEUTROPHILS (test code = 770-8) 73.8 % BAND NEUTROPHILS (test code = 764-1) DNR % METAMYELOCYTES (test code = 740-1) DNR % MYELOCYTES (test code = 749-2) DNR % PROMYELOCYTES (test code = 783-1) DNR % LYMPHOCYTES (test code = 736-9) 17.6 % REACTIVE LYMPHOCYTES (test code = 22208-8) DNR % MONOCYTES (test code = 5905-5) 7.2 % EOSINOPHILS (test code = 713-8) 0.5 % BASOPHILS (test code = 706-2) 0.9 % BLASTS (test code = 709-6) DNR % NUCLEATED RBC (test code = 30196-1) DNR /100WBC COMMENT(S) (test code = 8251-1) DNR Delfino OrtaPTH, INTACT (ICMA) AND IONIZED [id number] 00:00:00* Test Item Value Reference Range Interpretation Comme nts PARATHYROID HORMONE, INTACT (test code = 2731-8) 71 pg/mL CALCIUM (test code = 25800-9) 11.1 mg/dL CALCIUM, IONIZED (test code = 60112-8) 5.9 mg/dL Delfino Schumacher AustinPHOSPHATE ( PHOSPHORUS)2024-06-04 00:00:00* Test Item Value Reference Range Interpretation Comme nts PHOSPHATE ( PHOSPHORUS) (t est code = 2777-1) 2.6 mg/dL Delfino OrtaHCV RNA, QUANTITATIVE REAL TIME [id number] 00:00:00* Test Item Value Reference Range Interpretation Comme nts HCV RNA, QUANTITATIVE REAL TIME PCR (test code = 02776-2) <15 NOT DETECTED IU/mL HCV RNA, QUANTITATIVE REAL TIME PCR (test code = 98057-6) <1.18 NOT DETECTED LogIU/mL Delfino OrtaLYMPHOCYTE SUBSET PANEL 00:00:00* Test Item Value Reference Range Interpretation Comme nts % CD4 (test code = 8123-2) 23 % ABSOLUTE CD4+ CELLS (test co de = 01329-6) 212 cells/uL % CD8 (test code = 8101-8) 57 % ABSOLUTE CD8+ CELLS (test co de = 18584-9) 534 cells/uL CD4/CD8 RATIO (test code = 65511-4) 0.40 ABSOLUTE LYMPHOCYTES (test c ode = 731-0) 943 cells/uL COMMENT(S) (test code = 8251-1) DNR Delfino OrtaCOMPREHENSIVE METABOLIC [id number] 00:00:00* Test Item Value Reference Range Interpretation Comme nts GLUCOSE (test code = 2345-7) 96 mg/dL UREA NITROGEN (BUN) (test code = 3094-0) 18 mg/dL CREATININE (test code = 2160-0) 1.21 mg/dL EGFR (test code = 84605-5) 51 mL/min/1.73m2 BUN/CREATININE RATIO (test code = 3097-3) 15 (calc) SODIUM (test code = 2951-2) 143 mmol/L POTASSIUM (test code = 2823-3) 4.2 mmol/L CHLORIDE (test code = 2075-0) 110 mmol/L CARBON DIOXIDE (test code = 2027-9) 22 mmol/L CALCIUM (test code = 14732-6) 11.1 mg/dL PROTEIN, TOTAL (test code = 2885-2) 8.8 g/dL ALBUMIN (test code = 1751-7) 4.5 g/dL GLOBULIN (test code = 48723-4) 4.3 g/dL(calc) ALBUMIN/GLOBULIN RATIO (test code = 1759-0) 1.0 (calc) BILIRUBIN, TOTAL (test code = 1975-2) 0.8 mg/dL ALKALINE PHOSPHATASE (test code = 6768-6) 85 U/L AST (test code = 1920-8) 21 U/L ALT (test code = 1742-6) 14 U/L Delfino OrtaHEMOGLOBIN [id number] 00:00:00* Test Item Value Reference Range Interpretation Comme [facility] HEMOGLOBIN A1c (test code = 4548-4) 6.2 % Delfino OrtaLIPID [id number] 00:00:00* Test Item Value Reference Range Interpretation Comme [facility] CHOLESTEROL, TOTAL (test cod e = 3-3) 215 mg/dL HDL CHOLESTEROL (test code = 2084-9) 123 mg/dL TRIGLYCERIDES (test code = 2571-8) 70 mg/dL LDL-CHOLESTEROL (test code = 43204-5) 77 mg/dL(calc) CHOL/HDLC RATIO (test code = 9830-1) 1.7 (calc) NON HDL CHOLESTEROL (test co de = 69082-6) 92 mg/dL(calc) Delfino OrtaCBC (INCLUDES DIFF/PLT)2024-06-04 00:00:00* [...] cells/uL ABSOLUTE BAND NEUTROPHILS (test code = 98217-8) DNR cells/uL ABSOLUTE METAMYELOCYTES (yohannes t code = 21250-9) DNR cells/uL ABSOLUTE MYELOCYTES (test code = 58986-8) DNR cells/uL ABSOLUTE PROMYELOCYTES (test code = 22947-0) DNR cells/uL ABSOLUTE LYMPHOCYTES (test code = 731-0) 1003 cells/uL ABSOLUTE MONOCYTES (test cod e = 742-7) 410 cells/uL ABSOLUTE EOSINOPHILS (test code = 711-2) 29 cells/uL ABSOLUTE BASOPHILS (test cod e = 704-7) 51 cells/uL ABSOLUTE BLASTS (test code = 81103-6) DNR cells/uL ABSOLUTE NUCLEATED RBC (test code = 70754-5) DNR cells/uL NEUTROPHILS (test code = 770-8) 73.8 % BAND NEUTROPHILS (test code = 764-1) DNR % METAMYELOCYTES (test code = 740-1) DNR % MYELOCYTES (test code = 749-2) DNR % PROMYELOCYTES (test code = 783-1) DNR % LYMPHOCYTES (test code = 736-9) 17.6 % REACTIVE LYMPHOCYTES (test code = 48112-4) DNR % MONOCYTES (test code = 5905-5) 7.2 % EOSINOPHILS (test code = 713-8) 0.5 % BASOPHILS (test code = 706-2) 0.9 % BLASTS (test code = 709-6) DNR % NUCLEATED RBC (test code = 12562-9) DNR /100WBC COMMENT(S) (test code = 8251-1) DNR Delfino F AustinPTH, INTACT (ICMA) AND IONIZED [id number] 00:00:00* Test Item Value Reference Range Interpretation Comme nts PARATHYROID HORMONE, INTACT (test code = 2731-8) 71 pg/mL CALCIUM (test code = 82932-0) 11.1 mg/dL CALCIUM, IONIZED (test code = 00132-0) 5.9 mg/dL Delfino OrtaPHOSPHATE ( PHOSPHORUS)2024-06-04 00:00:00* Test Item Value Reference Range Interpretation Comme nts PHOSPHATE ( PHOSPHORUS) (t est code = 2777-1) 2.6 mg/dL Delfino OrtaHCV RNA, QUANTITATIVE REAL TIME [id number] 00:00:00* Test Item Value Reference Range Interpretation Comme carlito HCV RNA, QUANTITATIVE REAL TIME PCR (test code = 78723-1) <15 NOT DETECTED IU/mL HCV RNA, QUANTITATIVE REAL TIME PCR (test code = 32379-1) <1.18 NOT DETECTED LogIU/mL Delfino rOtaLYMPHOCYTE SUBSET PANEL 00:00:00* Test Item Value Reference Range Interpretation Comme carlito % CD4 (test code = 8123-2) 23 % ABSOLUTE CD4+ CELLS (test co de = 06850-1) 212 cells/uL % CD8 (test code = 8101-8) 57 % ABSOLUTE CD8+ CELLS (test co de = 39094-5) 534 cells/uL CD4/CD8 RATIO (test code = 33122-9) 0.40 ABSOLUTE LYMPHOCYTES (test c ode = 731-0) 943 cells/uL COMMENT(S) (test code = 8251-1) DNR Delfino OrtaCOMPREHENSIVE METABOLIC [id number] 00:00:00* Test Item Value Reference Range Interpretation Comme nts GLUCOSE (test code = 2345-7) 96 mg/dL UREA NITROGEN (BUN) (test code = 3094-0) 18 mg/dL CREATININE (test code = 2160-0) 1.21 mg/dL EGFR (test code = 54325-1) 51 mL/min/1.73m2 BUN/CREATININE RATIO (test code = 3097-3) 15 (calc) SODIUM (test code = 2951-2) 143 mmol/L POTASSIUM (test code = 2823-3) 4.2 mmol/L CHLORIDE (test code = 2075-0) 110 mmol/L CARBON DIOXIDE (test code = 2027-9) 22 mmol/L CALCIUM (test code = 06870-7) 11.1 mg/dL PROTEIN, TOTAL (test code = 2885-2) 8.8 g/dL ALBUMIN (test code = 1751-7) 4.5 g/dL GLOBULIN (test code = 56081-7) 4.3 g/dL(calc) ALBUMIN/GLOBULIN RATIO (test code = 1759-0) 1.0 (calc) BILIRUBIN, TOTAL (test code = 1975-2) 0.8 mg/dL ALKALINE PHOSPHATASE (test code = 6768-6) 85 U/L AST (test code = 1920-8) 21 U/L ALT (test code = 1742-6) 14 U/L Delfino OrtaHEMOGLOBIN [id number] 00:00:00* Test Item Value Reference Range Interpretation Comme [facility] HEMOGLOBIN A1c (test code = 4548-4) 6.2 % Delfino OrtaLIPID [id number] 00:00:00* Test Item Value Reference Range Interpretation Comme [facility] CHOLESTEROL, TOTAL (test cod e = 2093-3) 215 mg/dL HDL CHOLESTEROL (test code = 2085-9) 123 mg/dL TRIGLYCERIDES (test code = 2571-8) 70 mg/dL LDL-CHOLESTEROL (test code = 60076-4) 77 mg/dL(calc) CHOL/HDLC RATIO (test code = 9830-1) 1.7 (calc) NON HDL CHOLESTEROL (test co de = 57583-4) 92 mg/dL(calc) Delfino OrtaCBC (INCLUDES DIFF/PLT)2024-06-04 00:00:00* [...] cells/uL ABSOLUTE BAND NEUTROPHILS (test code = 32764-3) DNR cells/uL ABSOLUTE METAMYELOCYTES (yohannes t code = 88950-0) DNR cells/uL ABSOLUTE MYELOCYTES (test code = 83288-5) DNR cells/uL ABSOLUTE PROMYELOCYTES (test code = 73867-7) DNR cells/uL ABSOLUTE LYMPHOCYTES (test code = 731-0) 1003 cells/uL ABSOLUTE MONOCYTES (test cod e = 742-7) 410 cells/uL ABSOLUTE EOSINOPHILS (test code = 711-2) 29 cells/uL ABSOLUTE BASOPHILS (test cod e = 704-7) 51 cells/uL ABSOLUTE BLASTS (test code = 36992-3) DNR cells/uL ABSOLUTE NUCLEATED RBC (test code = 98802-2) DNR cells/uL NEUTROPHILS (test code = 770-8) 73.8 % BAND NEUTROPHILS (test code = 764-1) DNR % METAMYELOCYTES (test code = 740-1) DNR % MYELOCYTES (test code = 749-2) DNR % PROMYELOCYTES (test code = 783-1) DNR % LYMPHOCYTES (test code = 736-9) 17.6 % REACTIVE LYMPHOCYTES (test code = 20522-1) DNR % MONOCYTES (test code = 5905-5) 7.2 % EOSINOPHILS (test code = 713-8) 0.5 % BASOPHILS (test code = 706-2) 0.9 % BLASTS (test code = 709-6) DNR % NUCLEATED RBC (test code = 68830-5) DNR /100WBC COMMENT(S) (test code = 8251-1) DNR Delfino Endy AustinPTH, INTACT (ICMA) AND IONIZED [id number] 00:00:00* Test Item Value Reference Range Interpretation Comme nts PARATHYROID HORMONE, INTACT (test code = 2731-8) 71 pg/mL CALCIUM (test code = 93074-6) 11.1 mg/dL CALCIUM, IONIZED (test code = 42040-3) 5.9 mg/dL Delfino Endy AustinPHOSPHATE ( PHOSPHORUS)2024-06-04 00:00:00* Test Item Value Reference Range Interpretation Comme nts PHOSPHATE ( PHOSPHORUS) (t est code = 2777-1) 2.6 mg/dL Delfino OrtaHCV RNA, QUANTITATIVE REAL TIME [id number] 00:00:00* Test Item Value Reference Range Interpretation Comme nts HCV RNA, QUANTITATIVE REAL TIME PCR (test code = 64675-1) <15 NOT DETECTED IU/mL HCV RNA, QUANTITATIVE REAL TIME PCR (test code = 29441-7) <1.18 NOT DETECTED LogIU/mL Delfino OrtaLYMPHOCYTE SUBSET PANEL 00:00:00* Test Item Value Reference Range Interpretation Comme nts % CD4 (test code = 8123-2) 23 % ABSOLUTE CD4+ CELLS (test co de = 04163-2) 212 cells/uL % CD8 (test code = 8101-8) 57 % ABSOLUTE CD8+ CELLS (test co de = 23720-7) 534 cells/uL CD4/CD8 RATIO (test code = 32747-8) 0.40 ABSOLUTE LYMPHOCYTES (test c ode = 731-0) 943 cells/uL COMMENT(S) (test code = 8251-1) DNR Delfino OrtaCOMPREHENSIVE METABOLIC [id number] 00:00:00* Test Item Value Reference Range Interpretation Comme nts GLUCOSE (test code = 2345-7) 96 mg/dL UREA NITROGEN (BUN) (test code = 3094-0) 18 mg/dL CREATININE (test code = 2160-0) 1.21 mg/dL EGFR (test code = 31671-1) 51 mL/min/1.73m2 BUN/CREATININE RATIO (test code = 3097-3) 15 (calc) SODIUM (test code = 2951-2) 143 mmol/L POTASSIUM (test code = 2823-3) 4.2 mmol/L CHLORIDE (test code = 2075-0) 110 mmol/L CARBON DIOXIDE (test code = 2027-9) 22 mmol/L CALCIUM (test code = 99406-1) 11.1 mg/dL PROTEIN, TOTAL (test code = 2885-2) 8.8 g/dL ALBUMIN (test code = 1751-7) 4.5 g/dL GLOBULIN (test code = 37179-7) 4.3 g/dL(calc) ALBUMIN/GLOBULIN RATIO (test code = 1759-0) 1.0 (calc) BILIRUBIN, TOTAL (test code = 1975-2) 0.8 mg/dL ALKALINE PHOSPHATASE (test code = 6768-6) 85 U/L AST (test code = 1920-8) 21 U/L ALT (test code = 1742-6) 14 U/L Delfino OrtaHEMOGLOBIN [id number] 00:00:00* Test Item Value Reference Range Interpretation Comme nts HEMOGLOBIN A1c (test code = 4548-4) 6.2 % Delfino Schumacher AustinLIPID [id number] 00:00:00* Test Item Value Reference Range Interpretation Comme nts CHOLESTEROL, TOTAL (test cod e = 2093-3) 215 mg/dL HDL CHOLESTEROL (test code = 2085-9) 123 mg/dL TRIGLYCERIDES (test code = 2571-8) 70 mg/dL LDL-CHOLESTEROL (test code = 15100-4) 77 mg/dL(calc) CHOL/HDLC RATIO (test code = 9830-1) 1.7 (calc) NON HDL CHOLESTEROL (test co de = 36668-9) 92 mg/dL(calc) Delfino OrtaCBC (INCLUDES DIFF/PLT)2024-06-04 00:00:00* [...] cells/uL ABSOLUTE BAND NEUTROPHILS (test code = 77100-1) DNR cells/uL ABSOLUTE METAMYELOCYTES (yohannes t code = 88954-4) DNR cells/uL ABSOLUTE MYELOCYTES (test code = 94552-2) DNR cells/uL ABSOLUTE PROMYELOCYTES (test code = 41103-3) DNR cells/uL ABSOLUTE LYMPHOCYTES (test code = 731-0) 1003 cells/uL ABSOLUTE MONOCYTES (test cod e = 742-7) 410 cells/uL ABSOLUTE EOSINOPHILS (test code = 711-2) 29 cells/uL ABSOLUTE BASOPHILS (test cod e = 704-7) 51 cells/uL ABSOLUTE BLASTS (test code = 12039-9) DNR cells/uL ABSOLUTE NUCLEATED RBC (test code = 06044-0) DNR cells/uL NEUTROPHILS (test code = 770-8) 73.8 % BAND NEUTROPHILS (test code = 764-1) DNR % METAMYELOCYTES (test code = 740-1) DNR % MYELOCYTES (test code = 749-2) DNR % PROMYELOCYTES (test code = 783-1) DNR % LYMPHOCYTES (test code = 736-9) 17.6 % REACTIVE LYMPHOCYTES (test code = 24644-2) DNR % MONOCYTES (test code = 5905-5) 7.2 % EOSINOPHILS (test code = 713-8) 0.5 % BASOPHILS (test code = 706-2) 0.9 % BLASTS (test code = 709-6) DNR % NUCLEATED RBC (test code = 77502-4) DNR /100WBC COMMENT(S) (test code = 8251-1) DNR Delfino Endy YouPTH, INTACT (ICMA) AND IONIZED [id number] 00:00:00* Test Item Value Reference Range Interpretation Comme nts PARATHYROID HORMONE, INTACT (test code = 2731-8) 71 pg/mL CALCIUM (test code = 78507-8) 11.1 mg/dL CALCIUM, IONIZED (test code = 31299-8) 5.9 mg/dL Delfino Endy AustinPHOSPHATE ( PHOSPHORUS)2024-06-04 00:00:00* Test Item Value Reference Range Interpretation Comme nts PHOSPHATE ( PHOSPHORUS) (t est code = 2777-1) 2.6 mg/dL Delfino Endy YouHCV RNA, QUANTITATIVE REAL TIME [id number] 00:00:00* Test Item Value Reference Range Interpretation Comme nts HCV RNA, QUANTITATIVE REAL TIME PCR (test code = 60180-9) <15 NOT DETECTED IU/mL HCV RNA, QUANTITATIVE REAL TIME PCR (test code = 18049-9) <1.18 NOT DETECTED LogIU/mL Delfino OrtaLYMPHOCYTE SUBSET PANEL [id number] 00:00:00* Test Item Value Reference Range Interpretation Comme nts % CD4 (test code = 8123-2) 23 % ABSOLUTE CD4+ CELLS (test co de = 18551-4) 212 cells/uL % CD8 (test code = 8101-8) 57 % ABSOLUTE CD8+ CELLS (test co de = 66380-3) 534 cells/uL CD4/CD8 RATIO (test code = 01730-3) 0.40 ABSOLUTE LYMPHOCYTES (test c ode = 731-0) 943 cells/uL COMMENT(S) (test code = 8251-1) DNR Delfino OrtaCOMPREHENSIVE METABOLIC [id number] 00:00:00* Test Item Value Reference Range Interpretation Comme nts GLUCOSE (test code = 2345-7) 96 mg/dL UREA NITROGEN (BUN) (test code = 3094-0) 18 mg/dL CREATININE (test code = 2160-0) 1.21 mg/dL EGFR (test code = 46140-9) 51 mL/min/1.73m2 BUN/CREATININE RATIO (test code = 3097-3) 15 (calc) SODIUM (test code = 2951-2) 143 mmol/L POTASSIUM (test code = 2823-3) 4.2 mmol/L CHLORIDE (test code = 2075-0) 110 mmol/L CARBON DIOXIDE (test code = 8-9) 22 mmol/L CALCIUM (test code = 27782-0) 11.1 mg/dL PROTEIN, TOTAL (test code = 2885-2) 8.8 g/dL ALBUMIN (test code = 1751-7) 4.5 g/dL GLOBULIN (test code = 58220-3) 4.3 g/dL(calc) ALBUMIN/GLOBULIN RATIO (test code = 1759-0) 1.0 (calc) BILIRUBIN, TOTAL (test code = 1975-2) 0.8 mg/dL ALKALINE PHOSPHATASE (test code = 6768-6) 85 U/L AST (test code = 1920-8) 21 U/L ALT (test code = 1742-6) 14 U/L Delfino OrtaHEMOGLOBIN [id number] 00:00:00* Test Item Value Reference Range Interpretation Comme nts HEMOGLOBIN A1c (test code = 4548-4) 6.2 % Delfino OrtaLIPID [id number] 00:00:00* Test Item Value Reference Range Interpretation Comme nts CHOLESTEROL, TOTAL (test cod e = 2093-3) 215 mg/dL HDL CHOLESTEROL (test code = 2085-9) 123 mg/dL TRIGLYCERIDES (test code = 2571-8) 70 mg/dL LDL-CHOLESTEROL (test code = 23640-9) 77 mg/dL(calc) CHOL/HDLC RATIO (test code = 9830-1) 1.7 (calc) NON HDL CHOLESTEROL (test co de = 26008-2) 92 mg/dL(calc) Delfino OrtaCBC (INCLUDES DIFF/PLT)2024-06-04 00:00:00* [...] cells/uL ABSOLUTE BAND NEUTROPHILS (test code = 65247-8) DNR cells/uL ABSOLUTE METAMYELOCYTES (yohannes t code = 81654-0) DNR cells/uL ABSOLUTE MYELOCYTES (test code = 73236-0) DNR cells/uL ABSOLUTE PROMYELOCYTES (test code = 41742-2) DNR cells/uL ABSOLUTE LYMPHOCYTES (test code = 731-0) 1003 cells/uL ABSOLUTE MONOCYTES (test cod e = 742-7) 410 cells/uL ABSOLUTE EOSINOPHILS (test code = 711-2) 29 cells/uL ABSOLUTE BASOPHILS (test cod e = 704-7) 51 cells/uL ABSOLUTE BLASTS (test code = 78570-1) DNR cells/uL ABSOLUTE NUCLEATED RBC (test code = 39210-8) DNR cells/uL NEUTROPHILS (test code = 770-8) 73.8 % BAND NEUTROPHILS (test code = 764-1) DNR % METAMYELOCYTES (test code = 740-1) DNR % MYELOCYTES (test code = 749-2) DNR % PROMYELOCYTES (test code = 783-1) DNR % LYMPHOCYTES (test code = 736-9) 17.6 % REACTIVE LYMPHOCYTES (test code = 75985-5) DNR % MONOCYTES (test code = 5905-5) 7.2 % EOSINOPHILS (test code = 713-8) 0.5 % BASOPHILS (test code = 706-2) 0.9 % BLASTS (test code = 709-6) DNR % NUCLEATED RBC (test code = 02975-0) DNR /100WBC COMMENT(S) (test code = 8251-1) DNR Delfino OrtaPTH, INTACT (ICMA) AND IONIZED [id number] 00:00:00* Test Item Value Reference Range Interpretation Comme nts PARATHYROID HORMONE, INTACT (test code = 2731-8) 71 pg/mL CALCIUM (test code = 03300-5) 11.1 mg/dL CALCIUM, IONIZED (test code = 54796-3) 5.9 mg/dL Delfino Schumacher AustinPHOSPHATE ( PHOSPHORUS)2024-06-04 00:00:00* Test Item Value Reference Range Interpretation Comme nts PHOSPHATE ( PHOSPHORUS) (t est code = 2777-1) 2.6 mg/dL Delfino OrtaHCV RNA, QUANTITATIVE REAL TIME [id number] 00:00:00* Test Item Value Reference Range Interpretation Comme nts HCV RNA, QUANTITATIVE REAL TIME PCR (test code = 98544-6) <15 NOT DETECTED IU/mL HCV RNA, QUANTITATIVE REAL TIME PCR (test code = 30496-7) <1.18 NOT DETECTED LogIU/mL Delfino OrtaLYMPHOCYTE SUBSET PANEL [id number] 00:00:00* Test Item Value Reference Range Interpretation Comme nts % CD4 (test code = 8123-2) 23 % ABSOLUTE CD4+ CELLS (test co de = 50654-6) 212 cells/uL % CD8 (test code = 8101-8) 57 % ABSOLUTE CD8+ CELLS (test co de = 98203-6) 534 cells/uL CD4/CD8 RATIO (test code = 41363-1) 0.40 ABSOLUTE LYMPHOCYTES (test c ode = 731-0) 943 cells/uL COMMENT(S) (test code = 8251-1) DNR Delfino OrtaCOMPREHENSIVE METABOLIC [id number] 00:00:00* Test Item Value Reference Range Interpretation Comme nts GLUCOSE (test code = 2345-7) 96 mg/dL UREA NITROGEN (BUN) (test code = 3094-0) 18 mg/dL CREATININE (test code = 2160-0) 1.21 mg/dL EGFR (test code = 76611-0) 51 mL/min/1.73m2 BUN/CREATININE RATIO (test code = 3097-3) 15 (calc) SODIUM (test code = 2951-2) 143 mmol/L POTASSIUM (test code = 2823-3) 4.2 mmol/L CHLORIDE (test code = 2075-0) 110 mmol/L CARBON DIOXIDE (test code = 2027-9) 22 mmol/L CALCIUM (test code = 08547-5) 11.1 mg/dL PROTEIN, TOTAL (test code = 2885-2) 8.8 g/dL ALBUMIN (test code = 1751-7) 4.5 g/dL GLOBULIN (test code = 97926-1) 4.3 g/dL(calc) ALBUMIN/GLOBULIN RATIO (test code = 1759-0) 1.0 (calc) BILIRUBIN, TOTAL (test code = 1975-2) 0.8 mg/dL ALKALINE PHOSPHATASE (test code = 6768-6) 85 U/L AST (test code = 1920-8) 21 U/L ALT (test code = 1742-6) 14 U/L Delfino OrtaHEMOGLOBIN [id number] 00:00:00* Test Item Value Reference Range Interpretation Comme nts HEMOGLOBIN A1c (test code = 4548-4) 6.2 % Delfino OrtaLIPID [id number] 00:00:00* Test Item Value Reference Range Interpretation Comme nts CHOLESTEROL, TOTAL (test cod e = 2093-3) 215 mg/dL HDL CHOLESTEROL (test code = 2085-9) 123 mg/dL TRIGLYCERIDES (test code = 2571-8) 70 mg/dL LDL-CHOLESTEROL (test code = 82122-8) 77 mg/dL(calc) CHOL/HDLC RATIO (test code = 9830-1) 1.7 (calc) NON HDL CHOLESTEROL (test co de = 14604-7) 92 mg/dL(calc) Delfino Schumacher [facility] (INCLUDES DIFF/PLT)2024-06-04 00:00:00* Test Item Value [...] cells/uL ABSOLUTE BAND NEUTROPHILS (test code = 32641-1) DNR cells/uL ABSOLUTE METAMYELOCYTES (yohannes t code = 66443-4) DNR cells/uL ABSOLUTE MYELOCYTES (test code = 83435-0) DNR cells/uL ABSOLUTE PROMYELOCYTES (test code = 27694-3) DNR cells/uL ABSOLUTE LYMPHOCYTES (test code = 731-0) 1003 cells/uL ABSOLUTE MONOCYTES (test cod e = 742-7) 410 cells/uL ABSOLUTE EOSINOPHILS (test code = 711-2) 29 cells/uL ABSOLUTE BASOPHILS (test cod e = 704-7) 51 cells/uL ABSOLUTE BLASTS (test code = 41488-2) DNR cells/uL ABSOLUTE NUCLEATED RBC (test code = 08099-0) DNR cells/uL NEUTROPHILS (test code = 770-8) 73.8 % BAND NEUTROPHILS (test code = 764-1) DNR % METAMYELOCYTES (test code = 740-1) DNR % MYELOCYTES (test code = 749-2) DNR % PROMYELOCYTES (test code = 783-1) DNR % LYMPHOCYTES (test code = 736-9) 17.6 % REACTIVE LYMPHOCYTES (test code = 16569-6) DNR % MONOCYTES (test code = 5905-5) 7.2 % EOSINOPHILS (test code = 713-8) 0.5 % BASOPHILS (test code = 706-2) 0.9 % BLASTS (test code = 709-6) DNR % NUCLEATED RBC (test code = 28343-0) DNR /100WBC COMMENT(S) (test code = 8251-1) DNR Delfino OrtaPTH, INTACT (ICMA) AND IONIZED [id number] 00:00:00* Test Item Value Reference Range Interpretation Comme carlito PARATHYROID HORMONE, INTACT (test code = 2731-8) 71 pg/mL CALCIUM (test code = 26500-0) 11.1 mg/dL CALCIUM, IONIZED (test code = 77725-6) 5.9 mg/dL Delfino OrtaPHOSPHATE ( PHOSPHORUS)2024-06-04 00:00:00* Test Item Value Reference Range Interpretation Comme nts PHOSPHATE ( PHOSPHORUS) (t est code = 2777-1) 2.6 mg/dL Delfino OrtaHCV RNA, QUANTITATIVE REAL TIME [id number] 00:00:00* Test Item Value Reference Range Interpretation Comme nts HCV RNA, QUANTITATIVE REAL TIME PCR (test code = 85472-1) <15 NOT DETECTED IU/mL HCV RNA, QUANTITATIVE REAL TIME PCR (test code = 77839-6) <1.18 NOT DETECTED LogIU/mL Delfino OrtaLYMPHOCYTE SUBSET PANEL [id number] 00:00:00* Test Item Value Reference Range Interpretation Comme nts % CD4 (test code = 8123-2) 23 % ABSOLUTE CD4+ CELLS (test co de = 87266-0) 212 cells/uL % CD8 (test code = 8101-8) 57 % ABSOLUTE CD8+ CELLS (test co de = 93882-3) 534 cells/uL CD4/CD8 RATIO (test code = 99672-6) 0.40 ABSOLUTE LYMPHOCYTES (test c ode = 731-0) 943 cells/uL COMMENT(S) (test code = 8251-1) DNR Delfino Schumacher [facility] WITH [id number] 23:59:18* Test Item Value Reference Range Interpretation [...] 33.9 g/dL 31.6-35.1 RDW-SD (test code = 84143-2) 50.2 fL 39.0-49.9 H RDW-CV (test code = 788-0) 13.9 % 12.0-15.5 PLT (test code = 777-3) 224 166-358 MPV (test code = 10802-2) 10.8 fL 9.5-12.9 NRBC/100 WBC (test code = 2278983833) 0 0.0-10.0 NRBC x10^3 (test code = 0228723219) See_Comment [Automated messa ge] The system which generated this result transmitted reference range: 10*3/?L. The reference range was not used to interpret this result as normal/abnormal. GRAN MAT (NEUT) % (test code = 770-8) 90.5 % IMM GRAN % (test code = 7587866040) 0.3 % LYMPH % (test code = 736-9) 7.1 % MONO % (test code = 5905-5) 1.2 % EOS % (test code = 713-8) 0 % BASO % (test code = 706-2) 0.9 % GRAN MAT x10^3(ANC) (test code = 7268302281) 2.93 10*3/uL 1.88-7.09 IMM GRAN x10^3 (test code = 7732831277) 0.00-0.06 LYMPH x10^3 (test code = 731-0) 0.23 10*3/uL 1.32-3.29 L MONO x10^3 (test code = 742-7) 0.04 10*3/uL 0.33-0.92 L EOS x10^3 (test code = 711-2) 0.03-0.39 L BASO x10^3 (test code = 704-7) 0.03 10*3/uL 0.01-0.07 Lab Interpretation (test code = 36405-7) [id number] 23:47:58* Test Item Value Reference Range Interpretation Comme nts NT-proBNP (test code = 12748-7) 1750 pg/mL <=125 H GARRY (test code = GARRY) Positive: Heart Failure Likely Lab Interpretation (test code = 23864-2) [facility]normal [facility] HospitalL[facility] Whole [id number] 23:35:25* Test Item Value Reference Range Interpretation Comme nts LACTIC ACID (test code = 4620919853) 1.78 mmol/L 0.50-2.20 Lab Interpretation (test cod e = 92872-3) Normal [facility] (11103) (ALB,T.PRO,BILI T,BU/BC,ALT,AST,ALK PHOS)2024-06-03 23:35:15* Test Item Value Reference Range Interpretation Comme nts TOTAL BILI (test code = 1473781416) 0.6 mg/dL 0.1-1.1 BILI UNCON (test code = 7959587030) 0.5 mg/dL 0.1-1.1 BILI CONJ (test code = 1870529658) 0 mg/dL 0.0-0.3 T PROTEIN (test code = 3119023765) 8.7 g/dL 6.3-8.2 H ALBUMIN (test code = 2615658324) 4.4 g/dL 3.5-5.0 ALK PHOS (test code = 1773943162) 86 U/L 34-122 ALTv (test code = 1742-6) 19 U/L 5-35 AST(SGOT) (test code = 1155875547) 28 U/L 13-40 Lab Interpretation (test cod e = 73119-8) Abnormal [facility] [id number] 23:35:15* Test Item Value Reference Range Interpretation Comme nts MAGNESIUM (test code = 8261739618) 1.4 mg/dL 1.7-2.4 L Lab Interpretation (test cod e = 80164-9) [facility] (NA, K, CL, CO2, GLUCOSE, BUN, CREATININE, CA)2024-06-03 23:35:14* Test Item Value Reference Range Interpretation Comme nts NA (test code = 6044177444) 142 mmol/L 135-145 K (test code = 1162288914) 4.1 mmol/L 3.5-5.0 CL (test code = 4591610078) 112 mmol/L 98-108 H CO2 TOTAL (test code = 1058406024) 20 mmol/L 23-31 L AGAP (test code = 1513886066) 10 2-16 BUN (test code = 1652801416) 25 mg/dL 7-23 H GLUCOSE (test code = 9169623237) 128 mg/dL 70-110 H CREATININE (test code = 2160-0) 1.3 mg/dL 0.50-1.04 H CALCIUM (test code = 5048775112) 10.4 mg/dL 8.6-10.6 eGFR (test code = 25453-4) 46.9 mL/min/1.73m2 CKD-EPI eGFR (2020). Assuming creatinine has been stable day-to-day for at least three months, the eGFR indicates Category G3a (45 - 59 mL/min/1.73 m2) Lab Interpretation (test code = 30381-5) Abnormal [facility] HospitalCOMPRE[facility]ENSIVE METABOLIC [id number] 06:36:53* Test Item Value Reference Range Interpretation Comme nts GLUCOSE (test code = 2217) 87 MG/DL 70-99 BUN (test code = 2208) 19 MG/DL 8-23 CREATININE (test code = 2214) 1.49 MG/DL 0.60-1.30 H eGFR (2020 CKD-EPI) (test co de = 23823) 40 ML/MIN/1.73 >60 L CALC BUN/CREAT (test [...] code = 2218) 25 U/L 5-40 LIPID [id number] 06:36:53* Test Item Value Reference Range Interpretation [...] SPECIMENS. FOR MOREINFORMATION, SEE CLIENT ANNOUNCEMENT AT [email or web address] RISK RATIO LDL/HDL (test code = 2237) 0.66 RATIO <3.22 HEMOGLOBIN [id number] 04:59:33* Test Item Value Reference Range Interpretation Comme nts HEMOGLOBIN A1c (test code = 36721) 5.9 % 4.2-5.6 H [employer] GUIDELINES FOR HGB A1C: [...] TESTING PERFORMED AT [facility] [address] [place] [address] [employer] MANAGER: ABBI SHORT M.D. [place] NUMBER [id number] [facility] [place]. [id number] CBC W/AUTO DIFF WITH [id number] 03:30:09* Test Item Value Reference Range Interpretation [...] = 1065) 0.0 /100 WBC'S See_Comment [Automated [employer]] The system which generated this result transmitted [...] 0.00-0.10 ABS NUCLEATED RBCS (test code = 17329) 0.00 K/UL 0.00-0.11 COMPREHENSIVE METABOLIC [id number] 00:00:00* Test Item Value Reference Range Interpretation Comme nts GLUCOSE (test code = 2217) 87 MG/DL BUN (test code = 2208) 19 MG/DL CREATININE (test code = 2214) 1.49 MG/DL eGFR (2020 CKD-EPI) (test co de = 71459) 40 ML/MIN/1.73 CALC BUN/CREAT (test code = [...] = 2219) 25 U/L Delfino OrtaCBC W/AUTO [id number] 00:00:00* Test Item Value Reference Range Interpretation [...] ABS NUCLEATED RBCS (test cod e = 11522) 0.00 K/UL Delfino OrtaLIPID [id number] 00:00:00* Test Item Value Reference Range Interpretation Comme nts CHOLESTEROL (test code = 2210) 196 MG/DL TRIGLYCERIDES (test code = 2232) 66 MG/DL HDL CHOLESTEROL (test code = 2220) 109 MG/DL CALC LDL CHOL (test code = 2237) 72 MG/DL RISK RATIO LDL/HDL (test cod e = 2238) 0.66 RATIO Delfino OrtaHEMOGLOBIN [id number] 00:00:00* Test Item Value Reference Range Interpretation Comme nts HEMOGLOBIN A1c (test code = 97553) 5.9 % Delfino OrtaCOMPREHENSIVE METABOLIC [id number] 00:00:00* Test Item Value Reference Range Interpretation Comme nts GLUCOSE (test code = 2217) 87 MG/DL BUN (test code = 2208) 19 MG/DL CREATININE (test code = 2214) 1.49 MG/DL eGFR (2020 CKD-EPI) (test co de = 38963) 40 ML/MIN/1.73 CALC BUN/CREAT (test code = [...] code = 2219) 25 U/L Delfino Schumacher [facility] W/AUTO [id number] 00:00:00* Test Item Value Reference Range Interpretation [...] ABS NUCLEATED RBCS (test cod e = 24264) 0.00 K/UL Delfino OrtaLIPID [id number] 00:00:00* Test Item Value Reference Range Interpretation Comme nts CHOLESTEROL (test code = 2210) 196 MG/DL TRIGLYCERIDES (test code = 2232) 66 MG/DL HDL CHOLESTEROL (test code = 2220) 109 MG/DL CALC LDL CHOL (test code = 2237) 72 MG/DL RISK RATIO LDL/HDL (test cod e = 2238) 0.66 RATIO Delfino OrtaHEMOGLOBIN [id number] 00:00:00* Test Item Value Reference Range Interpretation Comme nts HEMOGLOBIN A1c (test code = 13619) 5.9 % Delfino OrtaCOMPREHENSIVE METABOLIC [id number] 00:00:00* Test Item Value Reference Range Interpretation Comme nts GLUCOSE (test code = 2217) 87 MG/DL BUN (test code = 2208) 19 MG/DL CREATININE (test code = 2214) 1.49 MG/DL eGFR (2020 CKD-EPI) (test co de = 16040) 40 ML/MIN/1.73 CALC BUN/CREAT (test code = [...] = 2219) 25 U/L Delfino OrtaCBC W/AUTO [id number] 00:00:00* Test Item Value Reference Range Interpretation [...] ABS NUCLEATED RBCS (test cod e = 98543) 0.00 K/UL Delfino OrtaLIPID [id number] 00:00:00* Test Item Value Reference Range Interpretation Comme nts CHOLESTEROL (test code = 2210) 196 MG/DL TRIGLYCERIDES (test code = 2232) 66 MG/DL HDL CHOLESTEROL (test code = 2220) 109 MG/DL CALC LDL CHOL (test code = 2237) 72 MG/DL RISK RATIO LDL/HDL (test cod e = 2238) 0.66 RATIO Delfino OrtaHEMOGLOBIN [id number] 00:00:00* Test Item Value Reference Range Interpretation Comme nts HEMOGLOBIN A1c (test code = 39573) 5.9 % Delfino OrtaCOMPREHENSIVE METABOLIC [id number] 00:00:00* Test Item Value Reference Range Interpretation Comme nts GLUCOSE (test code = 2217) 87 MG/DL BUN (test code = 2208) 19 MG/DL CREATININE (test code = 2214) 1.49 MG/DL eGFR (2020 CKD-EPI) (test co de = 08120) 40 ML/MIN/1.73 CALC BUN/CREAT (test code = [...] code = 2219) 25 U/L Delfino Schumacher [facility] W/AUTO [id number] 00:00:00* Test Item Value Reference Range Interpretation [...] ABS NUCLEATED RBCS (test cod e = 96019) 0.00 K/UL Delfino OrtaLIPID [id number] 00:00:00* Test Item Value Reference Range Interpretation Comme nts CHOLESTEROL (test code = 2210) 196 MG/DL TRIGLYCERIDES (test code = 2232) 66 MG/DL HDL CHOLESTEROL (test code = 2220) 109 MG/DL CALC LDL CHOL (test code = 2237) 72 MG/DL RISK RATIO LDL/HDL (test cod e = 2238) 0.66 RATIO Delfino OrtaHEMOGLOBIN [id number] 00:00:00* Test Item Value Reference Range Interpretation Comme nts HEMOGLOBIN A1c (test code = 95578) 5.9 % Delfino OrtaCOMPREHENSIVE METABOLIC [id number] 00:00:00* Test Item Value Reference Range Interpretation Comme nts GLUCOSE (test code = 2217) 87 MG/DL BUN (test code = 2208) 19 MG/DL CREATININE (test code = 2214) 1.49 MG/DL eGFR (2020 CKD-EPI) (test co de = 93003) 40 ML/MIN/1.73 CALC BUN/CREAT (test code = [...] = 2219) 25 U/L Delfino OrtaCBC W/AUTO [id number] 00:00:00* Test Item Value Reference Range Interpretation [...] ABS NUCLEATED RBCS (test cod e = 34436) 0.00 K/UL Delfino OrtaLIPID [id number] 00:00:00* Test Item Value Reference Range Interpretation Comme nts CHOLESTEROL (test code = 2210) 196 MG/DL TRIGLYCERIDES (test code = 2232) 66 MG/DL HDL CHOLESTEROL (test code = 2220) 109 MG/DL CALC LDL CHOL (test code = 2237) 72 MG/DL RISK RATIO LDL/HDL (test cod e = 2238) 0.66 RATIO Delfino OrtaHEMOGLOBIN [id number] 00:00:00* Test Item Value Reference Range Interpretation Comme nts HEMOGLOBIN A1c (test code = 05023) 5.9 % Delfino OrtaCOMPREHENSIVE METABOLIC [id number] 00:00:00* Test Item Value Reference Range Interpretation Comme nts GLUCOSE (test code = 2217) 87 MG/DL BUN (test code = 2208) 19 MG/DL CREATININE (test code = 2214) 1.49 MG/DL eGFR (2020 CKD-EPI) (test co de = 14023) 40 ML/MIN/1.73 CALC BUN/CREAT (test code = [...] = 2219) 25 U/L Delfino OrtaCBC W/AUTO [id number] 00:00:00* Test Item Value Reference Range Interpretation Comme [facility] WBC (test code = 1001) 4.2 K/UL [...] ABS NUCLEATED RBCS (test cod e = 86789) 0.00 K/UL Delfino OrtaLIPID [id number] 00:00:00* Test Item Value Reference Range Interpretation Comme nts CHOLESTEROL (test code = 2210) 196 MG/DL TRIGLYCERIDES (test code = 2232) 66 MG/DL HDL CHOLESTEROL (test code = 2220) 109 MG/DL CALC LDL CHOL (test code = 2237) 72 MG/DL RISK RATIO LDL/HDL (test cod e = 2238) 0.66 RATIO Delfino OrtaHEMOGLOBIN [id number] 00:00:00* Test Item Value Reference Range Interpretation Comme nts HEMOGLOBIN A1c (test code = 68580) 5.9 % Delfino OrtaCOMPREHENSIVE METABOLIC [id number] 00:00:00* Test Item Value Reference Range Interpretation Comme nts GLUCOSE (test code = 2217) 87 MG/DL BUN (test code = 2208) 19 MG/DL CREATININE (test code = 2214) 1.49 MG/DL eGFR (2020 CKD-EPI) (test co de = 55400) 40 ML/MIN/1.73 CALC BUN/CREAT (test code = [...] = 2219) 25 U/L Delfino OrtaCBC W/AUTO [id number] 00:00:00* Test Item Value Reference Range Interpretation [...] ABS NUCLEATED RBCS (test cod e = 24006) 0.00 K/UL Delfino OrtaLIPID [id number] 00:00:00* Test Item Value Reference Range Interpretation Comme nts CHOLESTEROL (test code = 2210) 196 MG/DL TRIGLYCERIDES (test code = 2232) 66 MG/DL HDL CHOLESTEROL (test code = 2220) 109 MG/DL CALC LDL CHOL (test code = 2237) 72 MG/DL RISK RATIO LDL/HDL (test cod e = 2238) 0.66 RATIO Delfino OrtaHEMOGLOBIN [id number] 00:00:00* Test Item Value Reference Range Interpretation Comme nts HEMOGLOBIN A1c (test code = 44801) 5.9 % Delfino OrtaCOMPREHENSIVE METABOLIC [id number] 00:00:00* Test Item Value Reference Range Interpretation Comme nts GLUCOSE (test code = 2217) 87 MG/DL BUN (test code = 2208) 19 MG/DL CREATININE (test code = 2214) 1.49 MG/DL eGFR (2020 CKD-EPI) (test co de = 54279) 40 ML/MIN/1.73 CALC BUN/CREAT (test code = [...] = 2219) 25 U/L Delfino OrtaCBC W/AUTO [id number] 00:00:00* Test Item Value Reference Range Interpretation [...] ABS NUCLEATED RBCS (test cod e = 56217) 0.00 K/UL Delfino Schumacher [place] [id number] 00:00:00* Test Item Value Reference Range Interpretation Comme nts CHOLESTEROL (test code = 2210) 196 MG/DL TRIGLYCERIDES (test code = 2232) 66 MG/DL HDL CHOLESTEROL (test code = 2220) 109 MG/DL CALC LDL CHOL (test code = 2237) 72 MG/DL RISK RATIO LDL/HDL (test cod e = 2238) 0.66 RATIO Delfino OrtaHEMOGLOBIN [id number] 00:00:00* Test Item Value Reference Range Interpretation Comme nts HEMOGLOBIN A1c (test code = 30587) 5.9 % Delfino OrtaCOMPREHENSIVE METABOLIC [id number] 00:00:00* Test Item Value Reference Range Interpretation Comme nts GLUCOSE (test code = 2217) 87 MG/DL BUN (test code = 2208) 19 MG/DL CREATININE (test code = 2214) 1.49 MG/DL eGFR (2020 CKD-EPI) (test co de = 53397) 40 ML/MIN/1.73 CALC BUN/CREAT (test code = [...] 2219) 25 U/L Delfino Schumacher YouCBC W/AUTO [id number] 00:00:00* Test Item Value Reference Range Interpretation [...] ABS NUCLEATED RBCS (test cod e = 48864) 0.00 K/UL Delfino Endy YouLIPID [id number] 00:00:00* Test Item Value Reference Range Interpretation Comme nts CHOLESTEROL (test code = 2210) 196 MG/DL TRIGLYCERIDES (test code = 2232) 66 MG/DL HDL CHOLESTEROL (test code = 2220) 109 MG/DL CALC LDL CHOL (test code = 2237) 72 MG/DL RISK RATIO LDL/HDL (test cod e = 2238) 0.66 RATIO Delfino OrtaHEMOGLOBIN [id number] 00:00:00* Test Item Value Reference Range Interpretation Comme nts HEMOGLOBIN A1c (test code = 79718) 5.9 % Delfino OrtaCOMPREHENSIVE METABOLIC [id number] 00:00:00* Test Item Value Reference Range Interpretation Comme nts GLUCOSE (test code = 2217) 87 MG/DL BUN (test code = 2208) 19 MG/DL CREATININE (test code = 2214) 1.49 MG/DL eGFR (2020 CKD-EPI) (test co de = 04665) 40 ML/MIN/1.73 CALC BUN/CREAT (test code = [...] = 2219) 25 U/L Delfino OrtaCBC W/AUTO [id number] 00:00:00* Test Item Value Reference Range Interpretation [...] ABS NUCLEATED RBCS (test cod e = 21729) 0.00 K/UL Delfino OrtaLIPID [id number] 00:00:00* Test Item Value Reference Range Interpretation Comme nts CHOLESTEROL (test code = 2210) 196 MG/DL TRIGLYCERIDES (test code = 2232) 66 MG/DL HDL CHOLESTEROL (test code = 2220) 109 MG/DL CALC LDL CHOL (test code = 2237) 72 MG/DL RISK RATIO LDL/HDL (test cod e = 2238) 0.66 RATIO Delfino OrtaHEMOGLOBIN [id number] 00:00:00* Test Item Value Reference Range Interpretation Comme nts HEMOGLOBIN A1c (test code = 83287) 5.9 % Delfino OrtaCOMPREHENSIVE METABOLIC [id number] 00:00:00* Test Item Value Reference Range Interpretation Comme nts GLUCOSE (test code = 2217) 87 MG/DL BUN (test code = 2208) 19 MG/DL CREATININE (test code = 2214) 1.49 MG/DL eGFR (2020 CKD-EPI) (test co de = 15567) 40 ML/MIN/1.73 CALC BUN/CREAT (test code = [...] code = 2219) 25 U/L Delfino Schumacher [facility] W/AUTO [id number] 00:00:00* Test Item Value Reference Range Interpretation [...] ABS NUCLEATED RBCS (test cod e = 97186) 0.00 K/UL Delfino OrtaLIPID [id number] 00:00:00* Test Item Value Reference Range Interpretation Comme nts CHOLESTEROL (test code = 2210) 196 MG/DL TRIGLYCERIDES (test code = 2232) 66 MG/DL HDL CHOLESTEROL (test code = 2220) 109 MG/DL CALC LDL CHOL (test code = 2237) 72 MG/DL RISK RATIO LDL/HDL (test cod e = 2238) 0.66 RATIO Dlefino OrtaHEMOGLOBIN [id number] 00:00:00* Test Item Value Reference Range Interpretation Comme nts HEMOGLOBIN A1c (test code = 17194) 5.9 % Delfino OrtaCOMPREHENSIVE METABOLIC [id number] 00:00:00* Test Item Value Reference Range Interpretation Comme nts GLUCOSE (test code = 2217) 87 MG/DL BUN (test code = 2208) 19 MG/DL CREATININE (test code = 2214) 1.49 MG/DL eGFR (2020 CKD-EPI) (test co de = 20087) 40 ML/MIN/1.73 CALC BUN/CREAT (test code = [...] = 2219) 25 U/L Delfino OrtaCBC W/AUTO [id number] 00:00:00* Test Item Value Reference Range Interpretation [...] ABS NUCLEATED RBCS (test cod e = 61782) 0.00 K/UL Delfino Schumacher YouLIPID [id number] 00:00:00* Test Item Value Reference Range Interpretation Comme nts CHOLESTEROL (test code = 2210) 196 MG/DL TRIGLYCERIDES (test code = 2232) 66 MG/DL HDL CHOLESTEROL (test code = 2220) 109 MG/DL CALC LDL CHOL (test code = 2237) 72 MG/DL RISK RATIO LDL/HDL (test cod e = 2238) 0.66 RATIO Delfino OrtaHEMOGLOBIN [id number] 00:00:00* Test Item Value Reference Range Interpretation Comme nts HEMOGLOBIN A1c (test code = 54766) 5.9 % Delfino Schumacher YouCOMPREHENSIVE METABOLIC [id number] 00:00:00* Test Item Value Reference Range Interpretation Comme nts GLUCOSE (test code = 2217) 87 MG/DL BUN (test code = 2208) 19 MG/DL CREATININE (test code = 2214) 1.49 MG/DL eGFR (2020 CKD-EPI) (test co de = 18812) 40 ML/MIN/1.73 CALC BUN/CREAT (test code = [...] code = 2219) 25 U/L Delfino Schumacher [facility] W/AUTO [id number] 00:00:00* Test Item Value Reference Range Interpretation [...] ABS NUCLEATED RBCS (test cod e = 16174) 0.00 K/UL Delfino OrtaLIPID [id number] 00:00:00* Test Item Value Reference Range Interpretation Comme nts CHOLESTEROL (test code = 2210) 196 MG/DL TRIGLYCERIDES (test code = 2232) 66 MG/DL HDL CHOLESTEROL (test code = 2220) 109 MG/DL CALC LDL CHOL (test code = 2237) 72 MG/DL RISK RATIO LDL/HDL (test cod e = 2238) 0.66 RATIO Delfino OrtaHEMOGLOBIN [id number] 00:00:00* Test Item Value Reference Range Interpretation Comme nts HEMOGLOBIN A1c (test code = 07975) 5.9 % Delfino OrtaCOMPREHENSIVE METABOLIC [id number] 00:00:00* Test Item Value Reference Range Interpretation Comme nts GLUCOSE (test code = 2217) 87 MG/DL BUN (test code = 2208) 19 MG/DL CREATININE (test code = 2214) 1.49 MG/DL eGFR (2020 CKD-EPI) (test co de = 57940) 40 ML/MIN/1.73 CALC BUN/CREAT (test code = [...] = 2219) 25 U/L Delfino OrtaCBC W/AUTO [id number] 00:00:00* Test Item Value Reference Range Interpretation [...] cod e = 87218) 0.00 K/UL Delfino OrtaLIPID [id number] 00:00:00* Test Item Value Reference Range Interpretation Comme nts CHOLESTEROL (test code = 2210) 196 MG/DL TRIGLYCERIDES (test code = 2232) 66 MG/DL HDL CHOLESTEROL (test code = 2220) 109 MG/DL CALC LDL CHOL (test code = 2237) 72 MG/DL RISK RATIO LDL/HDL (test cod e = 2238) 0.66 RATIO Delfino OrtaHEMOGLOBIN [id number] 00:00:00* Test Item Value Reference Range Interpretation Comme nts HEMOGLOBIN A1c (test code = 03879) 5.9 % Delfino OrtaCOMPREHENSIVE METABOLIC [id number] 00:00:00* Test Item Value Reference Range Interpretation Comme nts GLUCOSE (test code = 2217) 87 MG/DL BUN (test code = 2208) 19 MG/DL CREATININE (test code = 2214) 1.49 MG/DL eGFR (2020 CKD-EPI) (test co de = 20861) 40 ML/MIN/1.73 CALC BUN/CREAT (test code = [...] = 2219) 25 U/L Delfino OrtaCBC W/AUTO [id number] 00:00:00* Test Item Value Reference Range Interpretation [...] ABS NUCLEATED RBCS (test cod e = 03208) 0.00 K/UL Delfino OrtaLIPID [id number] 00:00:00* Test Item Value Reference Range Interpretation Comme nts CHOLESTEROL (test code = 2210) 196 MG/DL TRIGLYCERIDES (test code = 2232) 66 MG/DL HDL CHOLESTEROL (test code = 2220) 109 MG/DL CALC LDL CHOL (test code = 2237) 72 MG/DL RISK RATIO LDL/HDL (test cod e = 2238) 0.66 RATIO Delfino OrtaHEMOGLOBIN [id number] 00:00:00* Test Item Value Reference Range Interpretation Comme nts HEMOGLOBIN A1c (test code = 56538) 5.9 % Delfino OratCOMPREHENSIVE METABOLIC [id number] 00:00:00* Test Item Value Reference Range Interpretation Comme nts GLUCOSE (test code = 2217) 87 MG/DL BUN (test code = 2208) 19 MG/DL CREATININE (test code = 2214) 1.49 MG/DL eGFR (2020 CKD-EPI) (test co de = 64328) 40 ML/MIN/1.73 CALC BUN/CREAT (test code = [...] = 2219) 25 U/L Delfino OrtaCBC W/AUTO [id number] 00:00:00* Test Item Value Reference Range Interpretation [...] ABS NUCLEATED RBCS (test cod e = 81436) 0.00 K/UL Delfino OrtaLIPID [id number] 00:00:00* Test Item Value Reference Range Interpretation Comme nts CHOLESTEROL (test code = 2210) 196 MG/DL TRIGLYCERIDES (test code = 2232) 66 MG/DL HDL CHOLESTEROL (test code = 2220) 109 MG/DL CALC LDL CHOL (test code = 2237) 72 MG/DL RISK RATIO LDL/HDL (test cod e = 2238) 0.66 RATIO Delfino OrtaHEMOGLOBIN [id number] 00:00:00* Test Item Value Reference Range Interpretation Comme nts HEMOGLOBIN A1c (test code = 66440) 5.9 % Delfino OrtaCOMPREHENSIVE METABOLIC [id number] 00:00:00* Test Item Value Reference Range Interpretation Comme nts GLUCOSE (test code = 2217) 87 MG/DL BUN (test code = 2208) 19 MG/DL CREATININE (test code = 2214) 1.49 MG/DL eGFR (2020 CKD-EPI) (test co de = 59248) 40 ML/MIN/1.73 CALC BUN/CREAT (test code = [...] = 2219) 25 U/L Delfino OrtaCBC W/AUTO [id number] 00:00:00* Test Item Value Reference Range Interpretation [...] ABS NUCLEATED RBCS (test cod e = 28751) 0.00 K/UL Delfino OrtaLIPID [id number] 00:00:00* Test Item Value Reference Range Interpretation Comme nts CHOLESTEROL (test code = 2210) 196 MG/DL TRIGLYCERIDES (test code = 2232) 66 MG/DL HDL CHOLESTEROL (test code = 2220) 109 MG/DL CALC LDL CHOL (test code = 2237) 72 MG/DL RISK RATIO LDL/HDL (test cod e = 2238) 0.66 RATIO Delfino OrtaHEMOGLOBIN [id number] 00:00:00* Test Item Value Reference Range Interpretation Comme nts HEMOGLOBIN A1c (test code = 39348) 5.9 % Delfino OrtaCOMPREHENSIVE METABOLIC [id number] 00:00:00* Test Item Value Reference Range Interpretation Comme nts GLUCOSE (test code = 2217) 87 MG/DL BUN (test code = 2208) 19 MG/DL CREATININE (test code = 2214) 1.49 MG/DL eGFR (2020 CKD-EPI) (test co de = 35572) 40 ML/MIN/1.73 CALC BUN/CREAT (test code = [...] (test code = 2219) 25 U/L [facility] [id number] 00:00:00* Test Item Value Reference Range Interpretation [...] ABS NUCLEATED RBCS (test cod e = 82804) 0.00 K/UL Delfino OrtaLIPID [id number] 00:00:00* Test Item Value Reference Range Interpretation Comme nts CHOLESTEROL (test code = 2210) 196 MG/DL TRIGLYCERIDES (test code = 2232) 66 MG/DL HDL CHOLESTEROL (test code = 2220) 109 MG/DL CALC LDL CHOL (test code = 2237) 72 MG/DL RISK RATIO LDL/HDL (test cod e = 2238) 0.66 RATIO Delfino OrtaHEMOGLOBIN [id number] 00:00:00* Test Item Value Reference Range Interpretation Comme nts HEMOGLOBIN A1c (test code = 13306) 5.9 % Delfino OrtaCOMPREHENSIVE METABOLIC [id number] 00:00:00* Test Item Value Reference Range Interpretation Comme nts GLUCOSE (test code = 2217) 87 MG/DL BUN (test code = 2208) 19 MG/DL CREATININE (test code = 2214) 1.49 MG/DL eGFR (2020 CKD-EPI) (test co de = 63094) 40 ML/MIN/1.73 CALC BUN/CREAT (test code = [...] = 2219) 25 U/L Delfino OrtaCBC W/AUTO [id number] 00:00:00* Test Item Value Reference Range Interpretation [...] ABS NUCLEATED RBCS (test cod e = 46356) 0.00 K/UL Delfino Endy YouLIPID [id number] 00:00:00* Test Item Value Reference Range Interpretation Comme nts CHOLESTEROL (test code = 2210) 196 MG/DL TRIGLYCERIDES (test code = 2232) 66 MG/DL HDL CHOLESTEROL (test code = 2220) 109 MG/DL CALC LDL CHOL (test code = 2237) 72 MG/DL RISK RATIO LDL/HDL (test cod e = 2238) 0.66 RATIO Delfino OrtaHEMOGLOBIN [id number] 00:00:00* Test Item Value Reference Range Interpretation Comme nts HEMOGLOBIN A1c (test code = 10594) 5.9 % Delfino Schumacher YouCOMPREHENSIVE METABOLIC [id number] 00:00:00* Test Item Value Reference Range Interpretation Comme nts GLUCOSE (test code = 2217) 87 MG/DL BUN (test code = 2208) 19 MG/DL CREATININE (test code = 2214) 1.49 MG/DL eGFR (2020 CKD-EPI) (test co de = 12033) 40 ML/MIN/1.73 CALC BUN/CREAT (test code = [...] code = 2219) 25 U/L Delfino Schumacher [facility] W/AUTO [id number] 00:00:00* Test Item Value Reference Range Interpretation [...] ABS NUCLEATED RBCS (test cod e = 23516) 0.00 K/UL Delfino OrtaLIPID [id number] 00:00:00* Test Item Value Reference Range Interpretation Comme nts CHOLESTEROL (test code = 2210) 196 MG/DL TRIGLYCERIDES (test code = 2232) 66 MG/DL HDL CHOLESTEROL (test code = 2220) 109 MG/DL CALC LDL CHOL (test code = 2237) 72 MG/DL RISK RATIO LDL/HDL (test cod e = 2238) 0.66 RATIO Delfino OrtaHEMOGLOBIN [id number] 00:00:00* Test Item Value Reference Range Interpretation Comme nts HEMOGLOBIN A1c (test code = 01464) 5.9 % Delfino OrtaCOMPREHENSIVE METABOLIC [id number] 00:00:00* Test Item Value Reference Range Interpretation Comme nts GLUCOSE (test code = 2217) 87 MG/DL BUN (test code = 2208) 19 MG/DL CREATININE (test code = 2214) 1.49 MG/DL eGFR (2020 CKD-EPI) (test co de = 38856) 40 ML/MIN/1.73 CALC BUN/CREAT (test code = [...] = 2219) 25 U/L Delfino OrtaCBC W/AUTO [id number] 00:00:00* Test Item Value Reference Range Interpretation [...] ABS NUCLEATED RBCS (test cod e = 02444) 0.00 K/UL Delfino Schumacher YouLIPID [id number] 00:00:00* Test Item Value Reference Range Interpretation Comme nts CHOLESTEROL (test code = 2210) 196 MG/DL TRIGLYCERIDES (test code = 2232) 66 MG/DL HDL CHOLESTEROL (test code = 2220) 109 MG/DL CALC LDL CHOL (test code = 2237) 72 MG/DL RISK RATIO LDL/HDL (test cod e = 2238) 0.66 RATIO Delfino OrtaHEMOGLOBIN [id number] 00:00:00* Test Item Value Reference Range Interpretation Comme nts HEMOGLOBIN A1c (test code = 77717) 5.9 % Delfino F YouHIV-1 QUANT, [id number] 11:19:24* Test Item Value Reference Range Interpretation Comme nts HIV-1 VIRAL COPY (test code = 4141) TEST NOT PERFORMED COPIES/ML Unable to perform testing, specimen not received.Charges adjusted as applicable. HIV-1 VIRAL LOG (test code = 90352) TEST NOT PERFORMED LOG COPIES/ML Range of quantitatio n is 20-10,000,000 Copies/mL, (1.301-7.000log Copies/mL). Samples with HIV RNA detected below the limit ofquantitation are reported as <20 Copies/mL. Assay methodology ispolymerase chain reaction (PCR) using the [employer] 6800/8800system. The expected result is NOT DETECTED. For diagnostic use,please refer to laboratory test compendium. HIV-1 QUANT, [id number] 00:00:00* Test Item Value Reference Range Interpretation Comme nts HIV-1 VIRAL COPY (test code = 4141) TEST NOT PERFORMED COPIES/ML HIV-1 VIRAL LOG (test code = 95656) TEST NOT PERFORMED LOGCOPIES/ML Delfino F AustinHIV-1 QUANT, [id number] 00:00:00* Test Item Value Reference Range Interpretation Comme nts HIV-1 VIRAL COPY (test code = 4141) TEST NOT PERFORMED COPIES/ML HIV-1 VIRAL LOG (test code = 54059) TEST NOT PERFORMED LOGCOPIES/ML Delfino F AustinHIV-1 QUANT, [id number] 00:00:00* Test Item Value Reference Range Interpretation Comme nts HIV-1 VIRAL COPY (test code = 4141) TEST NOT PERFORMED COPIES/ML HIV-1 VIRAL LOG (test code = 08619) TEST NOT PERFORMED LOGCOPIES/ML Delfino F AustinHIV-1 QUANT, [id number] 00:00:00* Test Item Value Reference Range Interpretation Comme nts HIV-1 VIRAL COPY (test code = 4141) TEST NOT PERFORMED COPIES/ML HIV-1 VIRAL LOG (test code = 87216) TEST NOT PERFORMED LOGCOPIES/ML Delfino F AustinHIV-1 QUANT, [id number] 00:00:00* Test Item Value Reference Range Interpretation Comme nts HIV-1 VIRAL COPY (test code = 4141) TEST NOT PERFORMED COPIES/ML HIV-1 VIRAL LOG (test code = 31963) TEST NOT PERFORMED LOGCOPIES/ML Delfino F AustinHIV-1 QUANT, [id number] 00:00:00* Test Item Value Reference Range Interpretation Comme nts HIV-1 VIRAL COPY (test code = 4141) TEST NOT PERFORMED COPIES/ML HIV-1 VIRAL LOG (test code = 80462) TEST NOT PERFORMED LOGCOPIES/ML Delfino F AustinHIV-1 QUANT, [id number] 00:00:00* Test Item Value Reference Range Interpretation Comme nts HIV-1 VIRAL COPY (test code = 4141) TEST NOT PERFORMED COPIES/ML HIV-1 VIRAL LOG (test code = 58761) TEST NOT PERFORMED LOGCOPIES/ML Delfino F AustinHIV-1 QUANT, [id number] 00:00:00* Test Item Value Reference Range Interpretation Comme nts HIV-1 VIRAL COPY (test code = 4141) TEST NOT PERFORMED COPIES/ML HIV-1 VIRAL LOG (test code = 28498) TEST NOT PERFORMED LOGCOPIES/ML Delfino F AustinHIV-1 QUANT, [id number] 00:00:00* Test Item Value Reference Range Interpretation Comme nts HIV-1 VIRAL COPY (test code = 4141) TEST NOT PERFORMED COPIES/ML HIV-1 VIRAL LOG (test code = 68420) TEST NOT PERFORMED LOGCOPIES/ML Delfino F AustinHIV-1 QUANT, [id number] 00:00:00* Test Item Value Reference Range Interpretation Comme nts HIV-1 VIRAL COPY (test code = 4141) TEST NOT PERFORMED COPIES/ML HIV-1 VIRAL LOG (test code = 00929) TEST NOT PERFORMED LOGCOPIES/ML Delfino F AustinHIV-1 QUANT, [id number] 00:00:00* Test Item Value Reference Range Interpretation Comme nts HIV-1 VIRAL COPY (test code = 4141) TEST NOT PERFORMED COPIES/ML HIV-1 VIRAL LOG (test code = 36210) TEST NOT PERFORMED LOGCOPIES/ML Delfino F AustinHIV-1 QUANT, [id number] 00:00:00* Test Item Value Reference Range Interpretation Comme nts HIV-1 VIRAL COPY (test code = 4141) TEST NOT PERFORMED COPIES/ML HIV-1 VIRAL LOG (test code = 33758) TEST NOT PERFORMED LOGCOPIES/ML Delfino F AustinHIV-1 QUANT, [id number] 00:00:00* Test Item Value Reference Range Interpretation Comme nts HIV-1 VIRAL COPY (test code = 4141) TEST NOT PERFORMED COPIES/ML HIV-1 VIRAL LOG (test code = 22446) TEST NOT PERFORMED LOGCOPIES/ML Delfino F AustinHIV-1 QUANT, [id number] 00:00:00* Test Item Value Reference Range Interpretation Comme nts HIV-1 VIRAL COPY (test code = 4141) TEST NOT PERFORMED COPIES/ML HIV-1 VIRAL LOG (test code = 13736) TEST NOT PERFORMED LOGCOPIES/ML Delfino F AustinHIV-1 QUANT, [id number] 00:00:00* Test Item Value Reference Range Interpretation Comme nts HIV-1 VIRAL COPY (test code = 4141) TEST NOT PERFORMED COPIES/ML HIV-1 VIRAL LOG (test code = 16017) TEST NOT PERFORMED LOGCOPIES/ML Delfino F AustinHIV-1 QUANT, [id number] 00:00:00* Test Item Value Reference Range Interpretation Comme nts HIV-1 VIRAL COPY (test code = 4141) TEST NOT PERFORMED COPIES/ML HIV-1 VIRAL LOG (test code = 10947) TEST NOT PERFORMED LOGCOPIES/ML Delfino F AustinHIV-1 QUANT, [id number] 00:00:00* Test Item Value Reference Range Interpretation Comme nts HIV-1 VIRAL COPY (test code = 4141) TEST NOT PERFORMED COPIES/ML HIV-1 VIRAL LOG (test code = 39374) TEST NOT PERFORMED LOGCOPIES/ML Delfino F AustinHIV-1 QUANT, [id number] 00:00:00* Test Item Value Reference Range Interpretation Comme nts HIV-1 VIRAL COPY (test code = 4141) TEST NOT PERFORMED COPIES/ML HIV-1 VIRAL LOG (test code = 26429) TEST NOT PERFORMED LOGCOPIES/ML Delfino F AustinHIV-1 QUANT, [id number] 00:00:00* Test Item Value Reference Range Interpretation Comme nts HIV-1 VIRAL COPY (test code = 4141) TEST NOT PERFORMED COPIES/ML HIV-1 VIRAL LOG (test code = 28449) TEST NOT PERFORMED LOGCOPIES/ML Delfino F AustinHIV-1 QUANT, [id number] 00:00:00* Test Item Value Reference Range Interpretation Comme carlito HIV-1 VIRAL COPY (test code = 4141) TEST NOT PERFORMED COPIES/ML HIV-1 VIRAL LOG (test code = 30960) TEST NOT PERFORMED LOGCOPIES/ML Delfino OrtaHIV-1 QUANT, [id number] 00:00:00* Test Item Value Reference Range Interpretation Comme nts HIV-1 VIRAL COPY (test code = 4141) TEST NOT PERFORMED COPIES/ML HIV-1 VIRAL LOG (test code = 84282) TEST NOT PERFORMED LOGCOPIES/ML Delfino Schumacher AustinHIV-1 QUANT, [id number] 00:00:00* Test Item Value Reference Range Interpretation Comme nts HIV-1 VIRAL COPY (test code = 4141) TEST NOT PERFORMED COPIES/ML HIV-1 VIRAL LOG (test code = 20335) TEST NOT PERFORMED LOGCOPIES/ML Delfino OrtaHIV-1 QUANT, [id number] 00:00:00* Test Item Value Reference Range Interpretation Comme nts HIV-1 VIRAL COPY (test code = 4141) TEST NOT PERFORMED COPIES/ML HIV-1 VIRAL LOG (test code = 82307) TEST NOT PERFORMED LOGCOPIES/ML Delfino OrtaCD4/CD8 LYMPHOCYTE [id number] 15:06:04* Test Item Value Reference Range Interpretation Comme nts ABSOLUTE LYMPHOCYTES (test code = 34953) 1180 PER UL 2939-8575 PERCENT CD4 (test code = 97200) 20.9 % 34.0-65.0 L ABSOLUTE CD4 (test code = 38515) 247 PER UL 520-1470 L PERCENT CD8 (test code = 32865) 56.8 % 13.0-38.0 H ABSOLUTE CD8 (test code = 09472) 670 PER UL 205-920 CD4/CD8 RATIO (test code = 37321) 0.37 0.92-3.41 L UNLESS OTHERWISE INDICATED, ALL TESTING PERFORMED AT [facility] [address] [place] [id number] [employer] MANAGER: ABBI SHORT M.D. CLIA NUMBER [id number] [place]. [id number] CD4/CD8 LYMPHOCYTE [id number] 00:00:00* Test Item Value Reference Range Interpretation Comme nts ABSOLUTE LYMPHOCYTES (test c ode = 40874) 1180 PERUL PERCENT CD4 (test code = 07884) 20.9 % ABSOLUTE CD4 (test code = 98187) 247 PERUL PERCENT CD8 (test code = 45028) 56.8 % ABSOLUTE CD8 (test code = 72433) 670 PERUL CD4/CD8 RATIO (test code = 85571) 0.37 Delfino Schumacher AustinCD4/CD8 LYMPHOCYTE [id number] 00:00:00* Test Item Value Reference Range Interpretation Comme nts ABSOLUTE LYMPHOCYTES (test c ode = 61102) 1180 PERUL PERCENT CD4 (test code = 41975) 20.9 % ABSOLUTE CD4 (test code = 55403) 247 PERUL PERCENT CD8 (test code = 53872) 56.8 % ABSOLUTE CD8 (test code = 68702) 670 PERUL CD4/CD8 RATIO (test code = 46578) 0.37 Delfino Schumacher AustinCD4/CD8 LYMPHOCYTE [id number] 00:00:00* Test Item Value Reference Range Interpretation Comme nts ABSOLUTE LYMPHOCYTES (test c ode = 49828) 1180 PERUL PERCENT CD4 (test code = 37785) 20.9 % ABSOLUTE CD4 (test code = 52152) 247 PERUL PERCENT CD8 (test code = 71759) 56.8 % ABSOLUTE CD8 (test code = 43167) 670 PERUL CD4/CD8 RATIO (test code = 64613) 0.37 Delfino Schumacher AustinCD4/CD8 LYMPHOCYTE [id number] 00:00:00* Test Item Value Reference Range Interpretation Comme nts ABSOLUTE LYMPHOCYTES (test c ode = 55760) 1180 PERUL PERCENT CD4 (test code = 96676) 20.9 % ABSOLUTE CD4 (test code = 21181) 247 PERUL PERCENT CD8 (test code = 31342) 56.8 % ABSOLUTE CD8 (test code = 14053) 670 PERUL CD4/CD8 RATIO (test code = 99221) 0.37 Delfino Schumacher AustinCD4/CD8 LYMPHOCYTE [id number] 00:00:00* Test Item Value Reference Range Interpretation Comme nts ABSOLUTE LYMPHOCYTES (test c ode = 42150) 1180 PERUL PERCENT CD4 (test code = 41218) 20.9 % ABSOLUTE CD4 (test code = 19413) 247 PERUL PERCENT CD8 (test code = 52287) 56.8 % ABSOLUTE CD8 (test code = 51482) 670 PERUL CD4/CD8 RATIO (test code = 23435) 0.37 Delfino Schumacher AustinCD4/CD8 LYMPHOCYTE [id number] 00:00:00* Test Item Value Reference Range Interpretation Comme nts ABSOLUTE LYMPHOCYTES (test c ode = 17696) 1180 PERUL PERCENT CD4 (test code = 80534) 20.9 % ABSOLUTE CD4 (test code = 73389) 247 PERUL PERCENT CD8 (test code = 13712) 56.8 % ABSOLUTE CD8 (test code = 00890) 670 PERUL CD4/CD8 RATIO (test code = 12029) 0.37 Delfino Schumacher AustinCD4/CD8 LYMPHOCYTE [id number] 00:00:00* Test Item Value Reference Range Interpretation Comme nts ABSOLUTE LYMPHOCYTES (test c ode = 94275) 1180 PERUL PERCENT CD4 (test code = 19245) 20.9 % ABSOLUTE CD4 (test code = 43150) 247 PERUL PERCENT CD8 (test code = 13463) 56.8 % ABSOLUTE CD8 (test code = 65635) 670 PERUL CD4/CD8 RATIO (test code = 39313) 0.37 Delfino Schumacher AustinCD4/CD8 LYMPHOCYTE [id number] 00:00:00* Test Item Value Reference Range Interpretation Comme nts ABSOLUTE LYMPHOCYTES (test c ode = 10287) 1180 PERUL PERCENT CD4 (test code = 28372) 20.9 % ABSOLUTE CD4 (test code = 59120) 247 PERUL PERCENT CD8 (test code = 43167) 56.8 % ABSOLUTE CD8 (test code = 17525) 670 PERUL CD4/CD8 RATIO (test code = 12442) 0.37 Delfino Schumacher AustinCD4/CD8 LYMPHOCYTE [id number] 00:00:00* Test Item Value Reference Range Interpretation Comme nts ABSOLUTE LYMPHOCYTES (test c ode = 60757) 1180 PERUL PERCENT CD4 (test code = 71205) 20.9 % ABSOLUTE CD4 (test code = 93493) 247 PERUL PERCENT CD8 (test code = 39870) 56.8 % ABSOLUTE CD8 (test code = 54959) 670 PERUL CD4/CD8 RATIO (test code = 25425) 0.37 Delfino Schumacher AustinCD4/CD8 LYMPHOCYTE [id number] 00:00:00* Test Item Value Reference Range Interpretation Comme nts ABSOLUTE LYMPHOCYTES (test c ode = 38669) 1180 PERUL PERCENT CD4 (test code = 63628) 20.9 % ABSOLUTE CD4 (test code = 37113) 247 PERUL PERCENT CD8 (test code = 52875) 56.8 % ABSOLUTE CD8 (test code = 23543) 670 PERUL CD4/CD8 RATIO (test code = 54601) 0.37 Delfino Schumacher AustinCD4/CD8 LYMPHOCYTE [id number] 00:00:00* Test Item Value Reference Range Interpretation Comme nts ABSOLUTE LYMPHOCYTES (test c ode = 04451) 1180 PERUL PERCENT CD4 (test code = 27672) 20.9 % ABSOLUTE CD4 (test code = 53370) 247 PERUL PERCENT CD8 (test code = 38746) 56.8 % ABSOLUTE CD8 (test code = 13733) 670 PERUL CD4/CD8 RATIO (test code = 87377) 0.37 Dlefino Schumacher AustinCD4/CD8 LYMPHOCYTE [id number] 00:00:00* Test Item Value Reference Range Interpretation Comme nts ABSOLUTE LYMPHOCYTES (test c ode = 97567) 1180 PERUL PERCENT CD4 (test code = 26221) 20.9 % ABSOLUTE CD4 (test code = 83051) 247 PERUL PERCENT CD8 (test code = 76038) 56.8 % ABSOLUTE CD8 (test code = 83635) 670 PERUL CD4/CD8 RATIO (test code = 12961) 0.37 Delfino Schumacher AustinCD4/CD8 LYMPHOCYTE [id number] 00:00:00* Test Item Value Reference Range Interpretation Comme nts ABSOLUTE LYMPHOCYTES (test c ode = 92517) 1180 PERUL PERCENT CD4 (test code = 29641) 20.9 % ABSOLUTE CD4 (test code = 10762) 247 PERUL PERCENT CD8 (test code = 02684) 56.8 % ABSOLUTE CD8 (test code = 48018) 670 PERUL CD4/CD8 RATIO (test code = 64100) 0.37 Delfino Schumacher AustinCD4/CD8 LYMPHOCYTE [id number] 00:00:00* Test Item Value Reference Range Interpretation Comme nts ABSOLUTE LYMPHOCYTES (test c ode = 90918) 1180 PERUL PERCENT CD4 (test code = 10224) 20.9 % ABSOLUTE CD4 (test code = 84777) 247 PERUL PERCENT CD8 (test code = 46435) 56.8 % ABSOLUTE CD8 (test code = 92183) 670 PERUL CD4/CD8 RATIO (test code = 12082) 0.37 Delfino Schumacher AustinCD4/CD8 LYMPHOCYTE [id number] 00:00:00* Test Item Value Reference Range Interpretation Comme nts ABSOLUTE LYMPHOCYTES (test c ode = 57328) 1180 PERUL PERCENT CD4 (test code = 53935) 20.9 % ABSOLUTE CD4 (test code = 74815) 247 PERUL PERCENT CD8 (test code = 44845) 56.8 % ABSOLUTE CD8 (test code = 20165) 670 PERUL CD4/CD8 RATIO (test code = 87194) 0.37 Delfino Schumacher AustinCD4/CD8 LYMPHOCYTE [id number] 00:00:00* Test Item Value Reference Range Interpretation Comme nts ABSOLUTE LYMPHOCYTES (test c ode = 90617) 1180 PERUL PERCENT CD4 (test code = 36486) 20.9 % ABSOLUTE CD4 (test code = 43206) 247 PERUL PERCENT CD8 (test code = 07199) 56.8 % ABSOLUTE CD8 (test code = 79379) 670 PERUL CD4/CD8 RATIO (test code = 35948) 0.37 Delfino Schumacher AustinCD4/CD8 LYMPHOCYTE [id number] 00:00:00* Test Item Value Reference Range Interpretation Comme nts ABSOLUTE LYMPHOCYTES (test c ode = 65344) 1180 PERUL PERCENT CD4 (test code = 66423) 20.9 % ABSOLUTE CD4 (test code = 81332) 247 PERUL PERCENT CD8 (test code = 78391) 56.8 % ABSOLUTE CD8 (test code = 39838) 670 PERUL CD4/CD8 RATIO (test code = 57078) 0.37 Delfino Schumacher AustinCD4/CD8 LYMPHOCYTE [id number] 00:00:00* Test Item Value Reference Range Interpretation Comme nts ABSOLUTE LYMPHOCYTES (test c ode = 00467) 1180 PERUL PERCENT CD4 (test code = 80710) 20.9 % ABSOLUTE CD4 (test code = 82282) 247 PERUL PERCENT CD8 (test code = 71697) 56.8 % ABSOLUTE CD8 (test code = 34063) 670 PERUL CD4/CD8 RATIO (test code = 05402) 0.37 Delfino Schumacher AustinCD4/CD8 LYMPHOCYTE [id number] 00:00:00* Test Item Value Reference Range Interpretation Comme nts ABSOLUTE LYMPHOCYTES (test c ode = 63898) 1180 PERUL PERCENT CD4 (test code = 66597) 20.9 % ABSOLUTE CD4 (test code = 15659) 247 PERUL PERCENT CD8 (test code = 43751) 56.8 % ABSOLUTE CD8 (test code = 23199) 670 PERUL CD4/CD8 RATIO (test code = 33712) 0.37 Delfino Schumacher AustinCD4/CD8 LYMPHOCYTE [id number] 00:00:00* Test Item Value Reference Range Interpretation Comme nts ABSOLUTE LYMPHOCYTES (test c ode = 53967) 1180 PERUL PERCENT CD4 (test code = 95256) 20.9 % ABSOLUTE CD4 (test code = 55250) 247 PERUL PERCENT CD8 (test code = 44613) 56.8 % ABSOLUTE CD8 (test code = 09684) 670 PERUL CD4/CD8 RATIO (test code = 94540) 0.37 Delfino Schumacher AustinCD4/CD8 LYMPHOCYTE [id number] 00:00:00* Test Item Value Reference Range Interpretation Comme nts ABSOLUTE LYMPHOCYTES (test c ode = 70059) 1180 PERUL PERCENT CD4 (test code = 41507) 20.9 % ABSOLUTE CD4 (test code = 49682) 247 PERUL PERCENT CD8 (test code = 02824) 56.8 % ABSOLUTE CD8 (test code = 50910) 670 PERUL CD4/CD8 RATIO (test code = 83794) 0.37 Delfino Schumacher AustinCD4/CD8 LYMPHOCYTE [id number] 00:00:00* Test Item Value Reference Range Interpretation Comme nts ABSOLUTE LYMPHOCYTES (test c ode = 54945) 1180 PERUL PERCENT CD4 (test code = 79710) 20.9 % ABSOLUTE CD4 (test code = 98912) 247 PERUL PERCENT CD8 (test code = 01823) 56.8 % ABSOLUTE CD8 (test code = 31748) 670 PERUL CD4/CD8 RATIO (test code = 02218) 0.37 Delfino OrtaCD4/CD8 LYMPHOCYTE [id number] 00:00:00* Test Item Value Reference Range Interpretation Comme nts ABSOLUTE LYMPHOCYTES (test c ode = 25105) 1180 PERUL PERCENT CD4 (test code = 04077) 20.9 % ABSOLUTE CD4 (test code = 10957) 247 PERUL PERCENT CD8 (test code = 97288) 56.8 % ABSOLUTE CD8 (test code = 84924) 670 PERUL CD4/CD8 RATIO (test code = 44661) 0.37 Delfino OrtaCBC W/AUTO [id number] 00:00:00* Test Item Value Reference Range Interpretation [...] ABS NUCLEATED RBCS (test cod e = 85345) 0.00 K/UL Delfino Schumacher YouCOMPREHENSIVE METABOLIC [id number] 00:00:00* Test Item Value Reference Range Interpretation Comme nts GLUCOSE (test code = 2217) 83 MG/DL BUN (test code = 2208) 24 MG/DL CREATININE (test code = 2214) 1.32 MG/DL eGFR (2020 CKD-EPI) (test co de = 50566) 46 ML/MIN/1.73 CALC BUN/CREAT (test code = [...] 2219) 13 U/L Delfino Schumacher YouCD4/CD8 LYMPHOCYTE [id number] 00:00:00* Test Item Value Reference Range Interpretation Comme [facility] ABSOLUTE LYMPHOCYTES (test c ode = 81863) 877 PERUL PERCENT CD4 (test code = 70635) 22.4 % ABSOLUTE CD4 (test code = 78180) 196 PERUL PERCENT CD8 (test code = 13858) 58.8 % ABSOLUTE CD8 (test code = 59469) 515 PERUL CD4/CD8 RATIO (test code = 05993) 0.38 Delfino Endy YouHIV-1 QUANT, [id number] 00:00:00* Test Item Value Reference Range Interpretation Comme nts HIV-1 VIRAL COPY (test code = 4141) 619 COPIES/ML HIV-1 VIRAL LOG (test code = 58437) 2.792 LOGCOPIES/ML Delfino Endy YouHEMOGLOBIN A1c [ADDED]2023-09-11 00:00:00* Test Item Value Reference Range Interpretation Comme nts HEMOGLOBIN A1c (test code = 20497) 5.6 % Delfino OrtaCBC W/AUTO [id number] 00:00:00* Test Item Value Reference Range Interpretation [...] ABS NUCLEATED RBCS (test cod e = 96570) 0.00 K/UL Delfino OrtaCOMPREHENSIVE METABOLIC [id number] 00:00:00* Test Item Value Reference Range Interpretation Comme nts GLUCOSE (test code = 2217) 83 MG/DL BUN (test code = 2208) 24 MG/DL CREATININE (test code = 2214) 1.32 MG/DL eGFR (2020 CKD-EPI) (test co de = 37579) 46 ML/MIN/1.73 CALC BUN/CREAT (test code = [...] = 2219) 13 U/L Delfino OrtaCD4/CD8 LYMPHOCYTE [id number] 00:00:00* Test Item Value Reference Range Interpretation Comme [facility] ABSOLUTE LYMPHOCYTES (test c ode = 90064) 877 PERUL PERCENT CD4 (test code = 16804) 22.4 % ABSOLUTE CD4 (test code = 93682) 196 PERUL PERCENT CD8 (test code = 13936) 58.8 % ABSOLUTE CD8 (test code = 22646) 515 PERUL CD4/CD8 RATIO (test code = 32331) 0.38 Delfino OrtaHIV-1 QUANT, [id number] 00:00:00* Test Item Value Reference Range Interpretation Comme [facility] HIV-1 VIRAL COPY (test code = 4141) 619 COPIES/ML HIV-1 VIRAL LOG (test code = 08915) 2.792 LOGCOPIES/ML Delfino OrtaHEMOGLOBIN A1c [ADDED]2023-09-11 00:00:00* Test Item Value Reference Range Interpretation Comme [facility] HEMOGLOBIN A1c (test code = 50739) 5.6 % Delfino OrtaCBC W/AUTO [id number] 00:00:00* Test Item Value Reference Range Interpretation [...] ABS NUCLEATED RBCS (test cod e = 80715) 0.00 K/UL Delfino OrtaCOMPREHENSIVE METABOLIC [id number] 00:00:00* Test Item Value Reference Range Interpretation Comme nts GLUCOSE (test code = 2217) 83 MG/DL BUN (test code = 2208) 24 MG/DL CREATININE (test code = 2214) 1.32 MG/DL eGFR (2020 CKD-EPI) (test co de = 50720) 46 ML/MIN/1.73 CALC BUN/CREAT (test code = [...] = 2219) 13 U/L Delfino OrtaCD4/CD8 LYMPHOCYTE [id number] 00:00:00* Test Item Value Reference Range Interpretation Comme [facility] ABSOLUTE LYMPHOCYTES (test c ode = 85102) 877 PERUL PERCENT CD4 (test code = 34732) 22.4 % ABSOLUTE CD4 (test code = 51130) 196 PERUL PERCENT CD8 (test code = 66249) 58.8 % ABSOLUTE CD8 (test code = 48617) 515 PERUL CD4/CD8 RATIO (test code = 22352) 0.38 Delfino OrtaHIV-1 QUANT, [id number] 00:00:00* Test Item Value Reference Range Interpretation Comme [facility] HIV-1 VIRAL COPY (test code = 4141) 619 COPIES/ML HIV-1 VIRAL LOG (test code = 04488) 2.792 LOGCOPIES/ML Delfino OrtaHEMOGLOBIN A1c [ADDED]2023-09-11 00:00:00* Test Item Value Reference Range Interpretation Comme [facility] HEMOGLOBIN A1c (test code = 11959) 5.6 % Delfino OrtaCBC W/AUTO [id number] 00:00:00* Test Item Value Reference Range Interpretation [...] ABS NUCLEATED RBCS (test cod e = 38154) 0.00 K/UL Delfino OrtaCOMPREHENSIVE METABOLIC [id number] 00:00:00* Test Item Value Reference Range Interpretation Comme nts GLUCOSE (test code = 2217) 83 MG/DL BUN (test code = 2208) 24 MG/DL CREATININE (test code = 2214) 1.32 MG/DL eGFR (2020 CKD-EPI) (test co de = 19324) 46 ML/MIN/1.73 CALC BUN/CREAT (test code = [...] = 2219) 13 U/L Delfino OrtaCD4/CD8 LYMPHOCYTE [id number] 00:00:00* Test Item Value Reference Range Interpretation Comme nts ABSOLUTE LYMPHOCYTES (test c ode = 05464) 877 PERUL PERCENT CD4 (test code = 78668) 22.4 % ABSOLUTE CD4 (test code = 15602) 196 PERUL PERCENT CD8 (test code = 91246) 58.8 % ABSOLUTE CD8 (test code = 17808) 515 PERUL CD4/CD8 RATIO (test code = 19858) 0.38 Delfino OrtaHIV-1 QUANT, [id number] 00:00:00* Test Item Value Reference Range Interpretation Comme nts HIV-1 VIRAL COPY (test code = 4141) 619 COPIES/ML HIV-1 VIRAL LOG (test code = 34420) 2.792 LOGCOPIES/ML Delfino OrtaHEMOGLOBIN A1c [ADDED]2023-09-11 00:00:00* Test Item Value Reference Range Interpretation Comme nts HEMOGLOBIN A1c (test code = 57189) 5.6 % Delfino OrtaCBC W/AUTO [id number] 00:00:00* Test Item Value Reference Range Interpretation [...] ABS NUCLEATED RBCS (test cod e = 21155) 0.00 K/UL Delfino OrtaCOMPREHENSIVE METABOLIC [id number] 00:00:00* Test Item Value Reference Range Interpretation Comme nts GLUCOSE (test code = 2217) 83 MG/DL BUN (test code = 2208) 24 MG/DL CREATININE (test code = 2214) 1.32 MG/DL eGFR (2020 CKD-EPI) (test co de = 95993) 46 ML/MIN/1.73 CALC BUN/CREAT (test code = [...] = 2219) 13 U/L Delfino OrtaCD4/CD8 LYMPHOCYTE [id number] 00:00:00* Test Item Value Reference Range Interpretation Comme [facility] ABSOLUTE LYMPHOCYTES (test c ode = 98626) 877 PERUL PERCENT CD4 (test code = 48042) 22.4 % ABSOLUTE CD4 (test code = 15462) 196 PERUL PERCENT CD8 (test code = 14893) 58.8 % ABSOLUTE CD8 (test code = 09563) 515 PERUL CD4/CD8 RATIO (test code = 45497) 0.38 Delfino OrtaHIV-1 QUANT, [id number] 00:00:00* Test Item Value Reference Range Interpretation Comme [facility] HIV-1 VIRAL COPY (test code = 4141) 619 COPIES/ML HIV-1 VIRAL LOG (test code = 16169) 2.792 LOGCOPIES/ML Delfino OrtaHEMOGLOBIN A1c [ADDED]2023-09-11 00:00:00* Test Item Value Reference Range Interpretation Comme [facility] HEMOGLOBIN A1c (test code = 56052) 5.6 % Delfino OrtaCBC W/AUTO [id number] 00:00:00* Test Item Value Reference Range Interpretation [...] ABS NUCLEATED RBCS (test cod e = 77053) 0.00 K/UL Delfino OrtaCOMPREHENSIVE METABOLIC [id number] 00:00:00* Test Item Value Reference Range Interpretation Comme nts GLUCOSE (test code = 2217) 83 MG/DL BUN (test code = 2208) 24 MG/DL CREATININE (test code = 2214) 1.32 MG/DL eGFR (2020 CKD-EPI) (test co de = 74922) 46 ML/MIN/1.73 CALC BUN/CREAT (test code = [...] = 2219) 13 U/L Delfino OrtaCD4/CD8 LYMPHOCYTE [id number] 00:00:00* Test Item Value Reference Range Interpretation Comme nts ABSOLUTE LYMPHOCYTES (test c ode = 70770) 877 PERUL PERCENT CD4 (test code = 38362) 22.4 % ABSOLUTE CD4 (test code = 07894) 196 PERUL PERCENT CD8 (test code = 40531) 58.8 % ABSOLUTE CD8 (test code = 03116) 515 PERUL CD4/CD8 RATIO (test code = 45130) 0.38 Delfino OrtaHIV-1 QUANT, [id number] 00:00:00* Test Item Value Reference Range Interpretation Comme [facility] HIV-1 VIRAL COPY (test code = 4141) 619 COPIES/ML HIV-1 VIRAL LOG (test code = 08041) 2.792 LOGCOPIES/ML Delfino OrtaHEMOGLOBIN A1c [ADDED]2023-09-11 00:00:00* Test Item Value Reference Range Interpretation Comme nts HEMOGLOBIN A1c (test code = 25865) 5.6 % Delfino OrtaCBC W/AUTO [id number] 00:00:00* Test Item Value Reference Range Interpretation [...] ABS NUCLEATED RBCS (test cod e = 89948) 0.00 K/UL Delfino OrtaCOMPREHENSIVE METABOLIC [id number] 00:00:00* Test Item Value Reference Range Interpretation Comme nts GLUCOSE (test code = 2217) 83 MG/DL BUN (test code = 2208) 24 MG/DL CREATININE (test code = 2214) 1.32 MG/DL eGFR (2020 CKD-EPI) (test co de = 46529) 46 ML/MIN/1.73 CALC BUN/CREAT (test code = [...] = 2219) 13 U/L Delfino OrtaCD4/CD8 LYMPHOCYTE [id number] 00:00:00* Test Item Value Reference Range Interpretation Comme nts ABSOLUTE LYMPHOCYTES (test c ode = 01800) 877 PERUL PERCENT CD4 (test code = 58536) 22.4 % ABSOLUTE CD4 (test code = 46847) 196 PERUL PERCENT CD8 (test code = 93404) 58.8 % ABSOLUTE CD8 (test code = 07425) 515 PERUL CD4/CD8 RATIO (test code = 87739) 0.38 Delfino OrtaHIV-1 QUANT, [id number] 00:00:00* Test Item Value Reference Range Interpretation Comme [facility] HIV-1 VIRAL COPY (test code = 4141) 619 COPIES/ML HIV-1 VIRAL LOG (test code = 18128) 2.792 LOGCOPIES/ML Delfino OrtaHEMOGLOBIN A1c [ADDED]2023-09-11 00:00:00* Test Item Value Reference Range Interpretation Comme [facility] HEMOGLOBIN A1c (test code = 18238) 5.6 % Delfino OrtaCBC W/AUTO [id number] 00:00:00* Test Item Value Reference Range Interpretation [...] ABS NUCLEATED RBCS (test cod e = 79996) 0.00 K/UL Delfino OrtaCOMPREHENSIVE METABOLIC [id number] 00:00:00* Test Item Value Reference Range Interpretation Comme nts GLUCOSE (test code = 2217) 83 MG/DL BUN (test code = 2208) 24 MG/DL CREATININE (test code = 2214) 1.32 MG/DL eGFR (2020 CKD-EPI) (test co de = 92465) 46 ML/MIN/1.73 CALC BUN/CREAT (test code = [...] 2219) 13 U/L Delfino Schumacher YouCD4/CD8 LYMPHOCYTE [id number] 00:00:00* Test Item Value Reference Range Interpretation Comme nts ABSOLUTE LYMPHOCYTES (test c ode = 23273) 877 PERUL PERCENT CD4 (test code = 65557) 22.4 % ABSOLUTE CD4 (test code = 33190) 196 PERUL PERCENT CD8 (test code = 17651) 58.8 % ABSOLUTE CD8 (test code = 61548) 515 PERUL CD4/CD8 RATIO (test code = 65554) 0.38 Delfino Schumacher YouHIV-1 QUANT, [id number] 00:00:00* Test Item Value Reference Range Interpretation Comme nts HIV-1 VIRAL COPY (test code = 4141) 619 COPIES/ML HIV-1 VIRAL LOG (test code = 90369) 2.792 LOGCOPIES/ML Delfino OrtaHEMOGLOBIN A1c [ADDED]2023-09-11 00:00:00* Test Item Value Reference Range Interpretation Comme nts HEMOGLOBIN A1c (test code = 52516) 5.6 % Delfino OrtaCBC W/AUTO [id number] 00:00:00* Test Item Value Reference Range Interpretation [...] ABS NUCLEATED RBCS (test cod e = 08723) 0.00 K/UL Delfino OrtaCOMPREHENSIVE METABOLIC [id number] 00:00:00* Test Item Value Reference Range Interpretation Comme nts GLUCOSE (test code = 2217) 83 MG/DL BUN (test code = 2208) 24 MG/DL CREATININE (test code = 2214) 1.32 MG/DL eGFR (2020 CKD-EPI) (test co de = 18031) 46 ML/MIN/1.73 CALC BUN/CREAT (test code = [...] = 2219) 13 U/L Delfino OrtaCD4/CD8 LYMPHOCYTE [id number] 00:00:00* Test Item Value Reference Range Interpretation Comme nts ABSOLUTE LYMPHOCYTES (test c ode = 42662) 877 PERUL PERCENT CD4 (test code = 91037) 22.4 % ABSOLUTE CD4 (test code = 13186) 196 PERUL PERCENT CD8 (test code = 72387) 58.8 % ABSOLUTE CD8 (test code = 41241) 515 PERUL CD4/CD8 RATIO (test code = 47058) 0.38 Delfino OrtaHIV-1 QUANT, [id number] 00:00:00* Test Item Value Reference Range Interpretation Comme nts HIV-1 VIRAL COPY (test code = 4141) 619 COPIES/ML HIV-1 VIRAL LOG (test code = 90589) 2.792 LOGCOPIES/ML Delfino OrtaHEMOGLOBIN A1c [ADDED]2023-09-11 00:00:00* Test Item Value Reference Range Interpretation Comme nts HEMOGLOBIN A1c (test code = 18970) 5.6 % Delfino OrtaCBC W/AUTO [id number] 00:00:00* Test Item Value Reference Range Interpretation [...] ABS NUCLEATED RBCS (test cod e = 94193) 0.00 K/UL Delfino F AustinCOMPREHENSIVE METABOLIC [id number] 00:00:00* Test Item Value Reference Range Interpretation Comme nts GLUCOSE (test code = 2217) 83 MG/DL BUN (test code = 2208) 24 MG/DL CREATININE (test code = 2214) 1.32 MG/DL eGFR (2020 CKD-EPI) (test co de = 17608) 46 ML/MIN/1.73 CALC BUN/CREAT (test code = [...] = 2219) 13 U/L Delfino OrtaCD4/CD8 LYMPHOCYTE [id number] 00:00:00* Test Item Value Reference Range Interpretation Comme nts ABSOLUTE LYMPHOCYTES (test c ode = 35155) 877 PERUL PERCENT CD4 (test code = 13805) 22.4 % ABSOLUTE CD4 (test code = 16486) 196 PERUL PERCENT CD8 (test code = 18068) 58.8 % ABSOLUTE CD8 (test code = 51629) 515 PERUL CD4/CD8 RATIO (test code = 54819) 0.38 Delfino OrtaHIV-1 QUANT, [id number] 00:00:00* Test Item Value Reference Range Interpretation Comme [facility] HIV-1 VIRAL COPY (test code = 4141) 619 COPIES/ML HIV-1 VIRAL LOG (test code = 86287) 2.792 LOGCOPIES/ML Delfino OrtaHEMOGLOBIN A1c [ADDED]2023-09-11 00:00:00* Test Item Value Reference Range Interpretation Comme [facility] HEMOGLOBIN A1c (test code = 18758) 5.6 % Delfino OrtaCBC W/AUTO [id number] 00:00:00* Test Item Value Reference Range Interpretation [...] ABS NUCLEATED RBCS (test cod e = 18443) 0.00 K/UL Delfino OrtaCOMPREHENSIVE METABOLIC [id number] 00:00:00* Test Item Value Reference Range Interpretation Comme nts GLUCOSE (test code = 2217) 83 MG/DL BUN (test code = 2208) 24 MG/DL CREATININE (test code = 2214) 1.32 MG/DL eGFR (2020 CKD-EPI) (test co de = 07832) 46 ML/MIN/1.73 CALC BUN/CREAT (test code = [...] = 2219) 13 U/L Delfino OrtaCD4/CD8 LYMPHOCYTE [id number] 00:00:00* Test Item Value Reference Range Interpretation Comme nts ABSOLUTE LYMPHOCYTES (test c ode = 91513) 877 PERUL PERCENT CD4 (test code = 20805) 22.4 % ABSOLUTE CD4 (test code = 84414) 196 PERUL PERCENT CD8 (test code = 29635) 58.8 % ABSOLUTE CD8 (test code = 30305) 515 PERUL CD4/CD8 RATIO (test code = 36367) 0.38 Delfino OrtaHIV-1 QUANT, [id number] 00:00:00* Test Item Value Reference Range Interpretation Comme nts HIV-1 VIRAL COPY (test code = 4141) 619 COPIES/ML HIV-1 VIRAL LOG (test code = 96663) 2.792 LOGCOPIES/ML Delfino OrtaHEMOGLOBIN A1c [ADDED]2023-09-11 00:00:00* Test Item Value Reference Range Interpretation Comme nts HEMOGLOBIN A1c (test code = 25218) 5.6 % Delfino OrtaCBC W/AUTO [id number] 00:00:00* Test Item Value Reference Range Interpretation [...] ABS NUCLEATED RBCS (test cod e = 07024) 0.00 K/UL Delfino OrtaCOMPREHENSIVE METABOLIC [id number] 00:00:00* Test Item Value Reference Range Interpretation Comme nts GLUCOSE (test code = 2217) 83 MG/DL BUN (test code = 2208) 24 MG/DL CREATININE (test code = 2214) 1.32 MG/DL eGFR (2020 CKD-EPI) (test co de = 22477) 46 ML/MIN/1.73 CALC BUN/CREAT (test code = [...] = 2219) 13 U/L Delfino OrtaCD4/CD8 LYMPHOCYTE [id number] 00:00:00* Test Item Value Reference Range Interpretation Comme nts ABSOLUTE LYMPHOCYTES (test c ode = 09016) 877 PERUL PERCENT CD4 (test code = 97675) 22.4 % ABSOLUTE CD4 (test code = 65400) 196 PERUL PERCENT CD8 (test code = 85345) 58.8 % ABSOLUTE CD8 (test code = 73261) 515 PERUL CD4/CD8 RATIO (test code = 94508) 0.38 Delfino OrtaHIV-1 QUANT, [id number] 00:00:00* Test Item Value Reference Range Interpretation Comme nts HIV-1 VIRAL COPY (test code = 4141) 619 COPIES/ML HIV-1 VIRAL LOG (test code = 02998) 2.792 LOGCOPIES/ML Delfino OrtaHEMOGLOBIN A1c [ADDED]2023-09-11 00:00:00* Test Item Value Reference Range Interpretation Comme nts HEMOGLOBIN A1c (test code = 54677) 5.6 % Delfino OrtaCBC W/AUTO [id number] 00:00:00* Test Item Value Reference Range Interpretation [...] ABS NUCLEATED RBCS (test cod e = 19211) 0.00 K/UL Delfino OrtaCOMPREHENSIVE METABOLIC [id number] 00:00:00* Test Item Value Reference Range Interpretation Comme nts GLUCOSE (test code = 2217) 83 MG/DL BUN (test code = 2208) 24 MG/DL CREATININE (test code = 2214) 1.32 MG/DL eGFR (2020 CKD-EPI) (test co de = 98179) 46 ML/MIN/1.73 CALC BUN/CREAT (test code = [...] = 2219) 13 U/L Delfino OrtaCD4/CD8 LYMPHOCYTE [id number] 00:00:00* Test Item Value Reference Range Interpretation Comme nts ABSOLUTE LYMPHOCYTES (test c ode = 57823) 877 PERUL PERCENT CD4 (test code = 12702) 22.4 % ABSOLUTE CD4 (test code = 93775) 196 PERUL PERCENT CD8 (test code = 04987) 58.8 % ABSOLUTE CD8 (test code = 59952) 515 PERUL CD4/CD8 RATIO (test code = 38785) 0.38 Delfino OrtaHIV-1 QUANT, [id number] 00:00:00* Test Item Value Reference Range Interpretation Comme nts HIV-1 VIRAL COPY (test code = 4141) 619 COPIES/ML HIV-1 VIRAL LOG (test code = 09725) 2.792 LOGCOPIES/ML Delfino OrtaHEMOGLOBIN A1c [ADDED]2023-09-11 00:00:00* Test Item Value Reference Range Interpretation Comme nts HEMOGLOBIN A1c (test code = 93454) 5.6 % Delfino OrtaCBC W/AUTO [id number] 00:00:00* Test Item Value Reference Range Interpretation [...] ABS NUCLEATED RBCS (test cod e = 40565) 0.00 K/UL Delfino F YouCOMPREHENSIVE METABOLIC [id number] 00:00:00* Test Item Value Reference Range Interpretation Comme nts GLUCOSE (test code = 2217) 83 MG/DL BUN (test code = 2208) 24 MG/DL CREATININE (test code = 2214) 1.32 MG/DL eGFR (2020 CKD-EPI) (test co de = 17042) 46 ML/MIN/1.73 CALC BUN/CREAT (test code = [...] = 2219) 13 U/L Delfino OrtaCD4/CD8 LYMPHOCYTE [id number] 00:00:00* Test Item Value Reference Range Interpretation Comme nts ABSOLUTE LYMPHOCYTES (test c ode = 67991) 877 PERUL PERCENT CD4 (test code = 71292) 22.4 % ABSOLUTE CD4 (test code = 28170) 196 PERUL PERCENT CD8 (test code = 28711) 58.8 % ABSOLUTE CD8 (test code = 25585) 515 PERUL CD4/CD8 RATIO (test code = 70784) 0.38 Delfino OrtaHIV-1 QUANT, [id number] 00:00:00* Test Item Value Reference Range Interpretation Comme [facility] HIV-1 VIRAL COPY (test code = 4141) 619 COPIES/ML HIV-1 VIRAL LOG (test code = 87885) 2.792 LOGCOPIES/ML Delfino OrtaHEMOGLOBIN A1c [ADDED]2023-09-11 00:00:00* Test Item Value Reference Range Interpretation Comme [facility] HEMOGLOBIN A1c (test code = 08234) 5.6 % Delfino OrtaCBC W/AUTO [id number] 00:00:00* Test Item Value Reference Range Interpretation [...] ABS NUCLEATED RBCS (test cod e = 86211) 0.00 K/UL Delfino OrtaCOMPREHENSIVE METABOLIC [id number] 00:00:00* Test Item Value Reference Range Interpretation Comme nts GLUCOSE (test code = 2217) 83 MG/DL BUN (test code = 2208) 24 MG/DL CREATININE (test code = 2214) 1.32 MG/DL eGFR (2020 CKD-EPI) (test co de = 38199) 46 ML/MIN/1.73 CALC BUN/CREAT (test code = [...] = 2219) 13 U/L Delfino OrtaCD4/CD8 LYMPHOCYTE [id number] 00:00:00* Test Item Value Reference Range Interpretation Comme nts ABSOLUTE LYMPHOCYTES (test c ode = 72390) 877 PERUL PERCENT CD4 (test code = 79064) 22.4 % ABSOLUTE CD4 (test code = 46609) 196 PERUL PERCENT CD8 (test code = 60005) 58.8 % ABSOLUTE CD8 (test code = 42926) 515 PERUL CD4/CD8 RATIO (test code = 56752) 0.38 Delfino OrtaHIV-1 QUANT, [id number] 00:00:00* Test Item Value Reference Range Interpretation Comme nts HIV-1 VIRAL COPY (test code = 4141) 619 COPIES/ML HIV-1 VIRAL LOG (test code = 92175) 2.792 LOGCOPIES/ML Delfino OrtaHEMOGLOBIN A1c [ADDED]2023-09-11 00:00:00* Test Item Value Reference Range Interpretation Comme nts HEMOGLOBIN A1c (test code = 25526) 5.6 % Delfino OrtaCBC W/AUTO [id number] 00:00:00* Test Item Value Reference Range Interpretation [...] ABS NUCLEATED RBCS (test cod e = 67659) 0.00 K/UL Delfino OrtaCOMPREHENSIVE METABOLIC [id number] 00:00:00* Test Item Value Reference Range Interpretation Comme nts GLUCOSE (test code = 2217) 83 MG/DL BUN (test code = 2208) 24 MG/DL CREATININE (test code = 2214) 1.32 MG/DL eGFR (2020 CKD-EPI) (test co de = 57631) 46 ML/MIN/1.73 CALC BUN/CREAT (test code = [...] = 2219) 13 U/L Delfino OrtaCD4/CD8 LYMPHOCYTE [id number] 00:00:00* Test Item Value Reference Range Interpretation Comme nts ABSOLUTE LYMPHOCYTES (test c ode = 76298) 877 PERUL PERCENT CD4 (test code = 59577) 22.4 % ABSOLUTE CD4 (test code = 30946) 196 PERUL PERCENT CD8 (test code = 15999) 58.8 % ABSOLUTE CD8 (test code = 55532) 515 PERUL CD4/CD8 RATIO (test code = 03533) 0.38 Delfino OrtaHIV-1 QUANT, [id number] 00:00:00* Test Item Value Reference Range Interpretation Comme nts HIV-1 VIRAL COPY (test code = 4141) 619 COPIES/ML HIV-1 VIRAL LOG (test code = 64835) 2.792 LOGCOPIES/ML Delfino OrtaHEMOGLOBIN A1c [ADDED]2023-09-11 00:00:00* Test Item Value Reference Range Interpretation Comme nts HEMOGLOBIN A1c (test code = 52629) 5.6 % Delfino OrtaCBC W/AUTO [id number] 00:00:00* Test Item Value Reference Range Interpretation [...] ABS NUCLEATED RBCS (test cod e = 21229) 0.00 K/UL Delfino OrtaCOMPREHENSIVE METABOLIC [id number] 00:00:00* Test Item Value Reference Range Interpretation Comme nts GLUCOSE (test code = 2217) 83 MG/DL BUN (test code = 2208) 24 MG/DL CREATININE (test code = 2214) 1.32 MG/DL eGFR (2020 CKD-EPI) (test co de = 33235) 46 ML/MIN/1.73 CALC BUN/CREAT (test code = [...] = 2219) 13 U/L Delfino OrtaCD4/CD8 LYMPHOCYTE [id number] 00:00:00* Test Item Value Reference Range Interpretation Comme nts ABSOLUTE LYMPHOCYTES (test c ode = 61829) 877 PERUL PERCENT CD4 (test code = 73570) 22.4 % ABSOLUTE CD4 (test code = 76729) 196 PERUL PERCENT CD8 (test code = 02828) 58.8 % ABSOLUTE CD8 (test code = 85027) 515 PERUL CD4/CD8 RATIO (test code = 41769) 0.38 Delfino OrtaHIV-1 QUANT, [id number] 00:00:00* Test Item Value Reference Range Interpretation Comme nts HIV-1 VIRAL COPY (test code = 4141) 619 COPIES/ML HIV-1 VIRAL LOG (test code = 52296) 2.792 LOGCOPIES/ML Delfino OrtaHEMOGLOBIN A1c [ADDED]2023-09-11 00:00:00* Test Item Value Reference Range Interpretation Comme nts HEMOGLOBIN A1c (test code = 29355) 5.6 % Delfino OrtaCBC W/AUTO [id number] 00:00:00* Test Item Value Reference Range Interpretation [...] ABS NUCLEATED RBCS (test cod e = 93397) 0.00 K/UL Delfino F YouCOMPREHENSIVE METABOLIC [id number] 00:00:00* Test Item Value Reference Range Interpretation Comme nts GLUCOSE (test code = 2217) 83 MG/DL BUN (test code = 2208) 24 MG/DL CREATININE (test code = 2214) 1.32 MG/DL eGFR (2020 CKD-EPI) (test co de = 69662) 46 ML/MIN/1.73 CALC BUN/CREAT (test code = [...] = 2219) 13 U/L Delfino OrtaCD4/CD8 LYMPHOCYTE [id number] 00:00:00* Test Item Value Reference Range Interpretation Comme [facility] ABSOLUTE LYMPHOCYTES (test c ode = 04299) 877 PERUL PERCENT CD4 (test code = 85626) 22.4 % ABSOLUTE CD4 (test code = 31043) 196 PERUL PERCENT CD8 (test code = 55898) 58.8 % ABSOLUTE CD8 (test code = 23732) 515 PERUL CD4/CD8 RATIO (test code = 15082) 0.38 Delfino OrtaHIV-1 QUANT, [id number] 00:00:00* Test Item Value Reference Range Interpretation Comme [facility] HIV-1 VIRAL COPY (test code = 4141) 619 COPIES/ML HIV-1 VIRAL LOG (test code = 06944) 2.792 LOGCOPIES/ML Delfino OrtaHEMOGLOBIN A1c [ADDED]2023-09-11 00:00:00* Test Item Value Reference Range Interpretation Comme [facility] HEMOGLOBIN A1c (test code = 06749) 5.6 % Delfino OrtaCBC W/AUTO [id number] 00:00:00* Test Item Value Reference Range Interpretation [...] ABS NUCLEATED RBCS (test cod e = 42850) 0.00 K/UL Delfino OrtaCOMPREHENSIVE METABOLIC [id number] 00:00:00* Test Item Value Reference Range Interpretation Comme nts GLUCOSE (test code = 2217) 83 MG/DL BUN (test code = 2208) 24 MG/DL CREATININE (test code = 2214) 1.32 MG/DL eGFR (2020 CKD-EPI) (test co de = 51208) 46 ML/MIN/1.73 CALC BUN/CREAT (test code = [...] = 2219) 13 U/L Delfino OrtaCD4/CD8 LYMPHOCYTE [id number] 00:00:00* Test Item Value Reference Range Interpretation Comme nts ABSOLUTE LYMPHOCYTES (test c ode = 92430) 877 PERUL PERCENT CD4 (test code = 66369) 22.4 % ABSOLUTE CD4 (test code = 34702) 196 PERUL PERCENT CD8 (test code = 41016) 58.8 % ABSOLUTE CD8 (test code = 34298) 515 PERUL CD4/CD8 RATIO (test code = 08560) 0.38 Delfino OrtaHIV-1 QUANT, [id number] 00:00:00* Test Item Value Reference Range Interpretation Comme [facility] HIV-1 VIRAL COPY (test code = 4141) 619 COPIES/ML HIV-1 VIRAL LOG (test code = 34934) 2.792 LOGCOPIES/ML Delfino OrtaHEMOGLOBIN A1c [ADDED]2023-09-11 00:00:00* Test Item Value Reference Range Interpretation Comme nts HEMOGLOBIN A1c (test code = 95020) 5.6 % Delfino OrtaCBC W/AUTO [id number] 00:00:00* Test Item Value Reference Range Interpretation [...] ABS NUCLEATED RBCS (test cod e = 02206) 0.00 K/UL Delfino OrtaCOMPREHENSIVE METABOLIC [id number] 00:00:00* Test Item Value Reference Range Interpretation Comme nts GLUCOSE (test code = 2217) 83 MG/DL BUN (test code = 2208) 24 MG/DL CREATININE (test code = 2214) 1.32 MG/DL eGFR (2020 CKD-EPI) (test co de = 57016) 46 ML/MIN/1.73 CALC BUN/CREAT (test code = [...] 2219) 13 U/L Delfino Schumacher YouCD4/CD8 LYMPHOCYTE [id number] 00:00:00* Test Item Value Reference Range Interpretation Comme nts ABSOLUTE LYMPHOCYTES (test c ode = 18080) 877 PERUL PERCENT CD4 (test code = 55497) 22.4 % ABSOLUTE CD4 (test code = 92838) 196 PERUL PERCENT CD8 (test code = 58817) 58.8 % ABSOLUTE CD8 (test code = 98936) 515 PERUL CD4/CD8 RATIO (test code = 81783) 0.38 Delfino OrtaHIV-1 QUANT, [id number] 00:00:00* Test Item Value Reference Range Interpretation Comme nts HIV-1 VIRAL COPY (test code = 4141) 619 COPIES/ML HIV-1 VIRAL LOG (test code = 32624) 2.792 LOGCOPIES/ML Delfino OrtaHEMOGLOBIN A1c [ADDED]2023-09-11 00:00:00* Test Item Value Reference Range Interpretation Comme nts HEMOGLOBIN A1c (test code = 31287) 5.6 % Delfino OrtaCBC W/AUTO [id number] 00:00:00* Test Item Value Reference Range Interpretation [...] ABS NUCLEATED RBCS (test cod e = 80638) 0.00 K/UL Delfino OrtaCOMPREHENSIVE METABOLIC [id number] 00:00:00* Test Item Value Reference Range Interpretation Comme nts GLUCOSE (test code = 2217) 83 MG/DL BUN (test code = 2208) 24 MG/DL CREATININE (test code = 2214) 1.32 MG/DL eGFR (2021 CKD-EPI) (test co de = 94334) 46 ML/MIN/1.73 CALC BUN/CREAT (test code = [...] 2219) 13 U/L Delfino Schumacher YouCD4/CD8 LYMPHOCYTE [id number] 00:00:00* Test Item Value Reference Range Interpretation Comme nts ABSOLUTE LYMPHOCYTES (test c ode = 92537) 877 PERUL PERCENT CD4 (test code = 97384) 22.4 % ABSOLUTE CD4 (test code = 82103) 196 PERUL PERCENT CD8 (test code = 68175) 58.8 % ABSOLUTE CD8 (test code = 47825) 515 PERUL CD4/CD8 RATIO (test code = 64390) 0.38 Delfino Schumacher YouHIV-1 QUANT, [id number] 00:00:00* Test Item Value Reference Range Interpretation Comme [facility] HIV-1 VIRAL COPY (test code = 4141) 619 COPIES/ML HIV-1 VIRAL LOG (test code = 58509) 2.792 LOGCOPIES/ML Delfino Schumacher YouHEMOGLOBIN A1c [ADDED]2023-09-11 00:00:00* Test Item Value Reference Range Interpretation Comme [facility] HEMOGLOBIN A1c (test code = 91729) 5.6 % Delfino Schumacher YouCBC W/AUTO [id number] 00:00:00* Test Item Value Reference Range Interpretation [...] ABS NUCLEATED RBCS (test cod e = 26763) 0.00 K/UL Delfino OrtaCOMPREHENSIVE METABOLIC [id number] 00:00:00* Test Item Value Reference Range Interpretation Comme nts GLUCOSE (test code = 2217) 83 MG/DL BUN (test code = 2208) 24 MG/DL CREATININE (test code = 2214) 1.32 MG/DL eGFR (2020 CKD-EPI) (test co de = 55724) 46 ML/MIN/1.73 CALC BUN/CREAT (test code = [...] = 2219) 13 U/L Delfino OrtaCD4/CD8 LYMPHOCYTE [id number] 00:00:00* Test Item Value Reference Range Interpretation Comme [facility] ABSOLUTE LYMPHOCYTES (test c ode = 31514) 877 PERUL PERCENT CD4 (test code = 26302) 22.4 % ABSOLUTE CD4 (test code = 42423) 196 PERUL PERCENT CD8 (test code = 73858) 58.8 % ABSOLUTE CD8 (test code = 15844) 515 PERUL CD4/CD8 RATIO (test code = 22607) 0.38 Delfino OrtaHIV-1 QUANT, [id number] 00:00:00* Test Item Value Reference Range Interpretation Comme [facility] HIV-1 VIRAL COPY (test code = 4141) 619 COPIES/ML HIV-1 VIRAL LOG (test code = 26822) 2.792 LOGCOPIES/ML Delfino OrtaHEMOGLOBIN A1c [ADDED]2023-09-11 00:00:00* Test Item Value Reference Range Interpretation Comme [facility] HEMOGLOBIN A1c (test code = 67610) 5.6 % Delfino OrtaCBC W/AUTO [id number] 00:00:00* Test Item Value Reference Range Interpretation [...] ABS NUCLEATED RBCS (test cod e = 97892) 0.00 K/UL Delfino OrtaCOMPREHENSIVE METABOLIC [id number] 00:00:00* Test Item Value Reference Range Interpretation Comme nts GLUCOSE (test code = 2217) 83 MG/DL BUN (test code = 2208) 24 MG/DL CREATININE (test code = 2214) 1.32 MG/DL eGFR (2020 CKD-EPI) (test co de = 50882) 46 ML/MIN/1.73 CALC BUN/CREAT (test code = [...] = 2219) 13 U/L Delfino OrtaCD4/CD8 LYMPHOCYTE [id number] 00:00:00* Test Item Value Reference Range Interpretation Comme nts ABSOLUTE LYMPHOCYTES (test c ode = 78575) 877 PERUL PERCENT CD4 (test code = 75133) 22.4 % ABSOLUTE CD4 (test code = 35363) 196 PERUL PERCENT CD8 (test code = 60667) 58.8 % ABSOLUTE CD8 (test code = 44361) 515 PERUL CD4/CD8 RATIO (test code = 17476) 0.38 Delfino OrtaHIV-1 QUANT, [id number] 00:00:00* Test Item Value Reference Range Interpretation Comme [facility] HIV-1 VIRAL COPY (test code = 4141) 619 COPIES/ML HIV-1 VIRAL LOG (test code = 23637) 2.792 LOGCOPIES/ML Delfino OrtaHEMOGLOBIN A1c [ADDED]2023-09-11 00:00:00* Test Item Value Reference Range Interpretation Comme [facility] HEMOGLOBIN A1c (test code = 25943) 5.6 % Delfino OrtaCBC W/AUTO [id number] 00:00:00* Test Item Value Reference Range Interpretation [...] ABS NUCLEATED RBCS (test cod e = 78229) 0.00 K/UL Delfino OrtaCOMPREHENSIVE METABOLIC [id number] 00:00:00* Test Item Value Reference Range Interpretation Comme nts GLUCOSE (test code = 2217) 83 MG/DL BUN (test code = 2208) 24 MG/DL CREATININE (test code = 2214) 1.32 MG/DL eGFR (2020 CKD-EPI) (test co de = 81012) 46 ML/MIN/1.73 CALC BUN/CREAT (test code = [...] = 2219) 13 U/L Delfino OrtaCD4/CD8 LYMPHOCYTE [id number] 00:00:00* Test Item Value Reference Range Interpretation Comme nts ABSOLUTE LYMPHOCYTES (test c ode = 90996) 877 PERUL PERCENT CD4 (test code = 05347) 22.4 % ABSOLUTE CD4 (test code = 95507) 196 PERUL PERCENT CD8 (test code = 27360) 58.8 % ABSOLUTE CD8 (test code = 81884) 515 PERUL CD4/CD8 RATIO (test code = 50434) 0.38 Delfino OrtaHIV-1 QUANT, [id number] 00:00:00* Test Item Value Reference Range Interpretation Comme nts HIV-1 VIRAL COPY (test code = 4141) 619 COPIES/ML HIV-1 VIRAL LOG (test code = 96215) 2.792 LOGCOPIES/ML Delfino OrtaHEMOGLOBIN A1c [ADDED]2023-09-11 00:00:00* Test Item Value Reference Range Interpretation Comme nts HEMOGLOBIN A1c (test code = 89836) 5.6 % Delfino OrtaCBC W/AUTO [id number] 00:00:00* Test Item Value Reference Range Interpretation [...] ABS NUCLEATED RBCS (test cod e = 15154) 0.00 K/UL Delfino OrtaCOMPREHENSIVE METABOLIC [id number] 00:00:00* Test Item Value Reference Range Interpretation Comme nts GLUCOSE (test code = 2217) 83 MG/DL BUN (test code = 2208) 24 MG/DL CREATININE (test code = 2214) 1.32 MG/DL eGFR (2020 CKD-EPI) (test co de = 16246) 46 ML/MIN/1.73 CALC BUN/CREAT (test code = [...] 2219) 13 U/L Delfino F YouCD4/CD8 LYMPHOCYTE [id number] 00:00:00* Test Item Value Reference Range Interpretation Comme [facility] ABSOLUTE LYMPHOCYTES (test c ode = 15692) 877 PERUL PERCENT CD4 (test code = 96171) 22.4 % ABSOLUTE CD4 (test code = 32765) 196 PERUL PERCENT CD8 (test code = 01941) 58.8 % ABSOLUTE CD8 (test code = 13768) 515 PERUL CD4/CD8 RATIO (test code = 05502) 0.38 Delfino Endy YouHIV-1 QUANT, [id number] 00:00:00* Test Item Value Reference Range Interpretation Comme [facility] HIV-1 VIRAL COPY (test code = 4141) 619 COPIES/ML HIV-1 VIRAL LOG (test code = 90415) 2.792 LOGCOPIES/ML Delfino Endy YouHEMOGLOBIN A1c [ADDED]2023-09-11 00:00:00* Test Item Value Reference Range Interpretation Comme [facility] HEMOGLOBIN A1c (test code = 76411) 5.6 % Delfino OrtaCBC W/AUTO [id number] 00:00:00* Test Item Value Reference Range Interpretation [...] ABS NUCLEATED RBCS (test cod e = 79796) 0.00 K/UL Delfino OrtaCOMPREHENSIVE METABOLIC [id number] 00:00:00* Test Item Value Reference Range Interpretation Comme nts GLUCOSE (test code = 2217) 83 MG/DL BUN (test code = 2208) 24 MG/DL CREATININE (test code = 2214) 1.32 MG/DL eGFR (2020 CKD-EPI) (test co de = 97514) 46 ML/MIN/1.73 CALC BUN/CREAT (test code = [...] = 2219) 13 U/L Delfino OrtaCD4/CD8 LYMPHOCYTE [id number] 00:00:00* Test Item Value Reference Range Interpretation Comme [facility] ABSOLUTE LYMPHOCYTES (test c ode = 79939) 877 PERUL PERCENT CD4 (test code = 71423) 22.4 % ABSOLUTE CD4 (test code = 99947) 196 PERUL PERCENT CD8 (test code = 12441) 58.8 % ABSOLUTE CD8 (test code = 02527) 515 PERUL CD4/CD8 RATIO (test code = 98582) 0.38 Delfino OrtaHIV-1 QUANT, [id number] 00:00:00* Test Item Value Reference Range Interpretation Comme [facility] HIV-1 VIRAL COPY (test code = 4141) 619 COPIES/ML HIV-1 VIRAL LOG (test code = 37729) 2.792 LOGCOPIES/ML Delfino OrtaHEMOGLOBIN A1c [ADDED]2023-09-11 00:00:00* Test Item Value Reference Range Interpretation Comme [facility] HEMOGLOBIN A1c (test code = 72051) 5.6 % Delfino OrtaCBC W/AUTO [id number] 00:00:00* Test Item Value Reference Range Interpretation [...] ABS NUCLEATED RBCS (test cod e = 28316) 0.00 K/UL Delfino OrtaCOMPREHENSIVE METABOLIC [id number] 00:00:00* Test Item Value Reference Range Interpretation Comme nts GLUCOSE (test code = 2217) 83 MG/DL BUN (test code = 2208) 24 MG/DL CREATININE (test code = 2214) 1.32 MG/DL eGFR (2020 CKD-EPI) (test co de = 95603) 46 ML/MIN/1.73 CALC BUN/CREAT (test code = [...] = 2219) 13 U/L Delfino OrtaCD4/CD8 LYMPHOCYTE [id number] 00:00:00* Test Item Value Reference Range Interpretation Comme nts ABSOLUTE LYMPHOCYTES (test c ode = 61802) 877 PERUL PERCENT CD4 (test code = 92081) 22.4 % ABSOLUTE CD4 (test code = 84637) 196 PERUL PERCENT CD8 (test code = 48262) 58.8 % ABSOLUTE CD8 (test code = 39888) 515 PERUL CD4/CD8 RATIO (test code = 14670) 0.38 Delfino OrtaHIV-1 QUANT, [id number] 00:00:00* Test Item Value Reference Range Interpretation Comme nts HIV-1 VIRAL COPY (test code = 4141) 619 COPIES/ML HIV-1 VIRAL LOG (test code = 13643) 2.792 LOGCOPIES/ML Delfino OrtaHEMOGLOBIN A1c [ADDED]2023-09-11 00:00:00* Test Item Value Reference Range Interpretation Comme [facility] HEMOGLOBIN A1c (test code = 93495) 5.6 % Delfino Cedeño, [id number] 09:15:45SPECIMEN NUMBER: [id number] CULTURE, URINE SPECIMEN NUMBER: [id number] SPECIMEN COMMENT: URINE SOURCE: URINE REPORT STATUS: FINAL FINAL REPORT: 08/30/2023 10-100,000 CFU/ML MIXED MICROBIAL POPULATION PRESENT, NO PREDOMINATING ORGANISMS;PROBABLE CONTAMINANTS. UNLESS OTHERWISE INDICATED, ALL TESTING PERFORMED AT [facility] [address] [place] [address] [employer] SERVICES MANAGER: ABBI SHORT M.D. [place] NUMBER [id number] [facility] [place]. [id number], [id number] 00:00:00* Test Item Value Reference Range Interpretation Comme nts CULTURE, URINE (test code = 25001) SPECIMEN NUMBER: [id number] Delfino SarmientoLTNIALL, [id number] 00:00:00* Test Item Value Reference Range Interpretation Comme nts CULTURE, URINE (test code = 19771) SPECIMEN NUMBER: [id number] Delfino OrtaCULTNIALL, [id number] 00:00:00* Test Item Value Reference Range Interpretation Comme nts CULTURE, URINE (test code = 49081) SPECIMEN NUMBER: [id number] Delfino SarmientoLTNIALL, [id number] 00:00:00* Test Item Value Reference Range Interpretation Comme nts CULTURE, URINE (test code = 20802) SPECIMEN NUMBER: [id number] Delfino SarmientoLTNIALL, [id number] 00:00:00* Test Item Value Reference Range Interpretation Comme nts CULTURE, URINE (test code = 44806) SPECIMEN NUMBER: [id number] Delfino Cedeño, [id number] 00:00:00* Test Item Value Reference Range Interpretation Comme nts CULTURE, URINE (test code = 79193) SPECIMEN NUMBER: [id number] Delfino Cedeño [id number] 00:00:00* Test Item Value Reference Range Interpretation Comme nts CULTURE, URINE (test code = 34164) SPECIMEN NUMBER: [id number] Delfino Cedeño, [id number] 00:00:00* Test Item Value Reference Range Interpretation Comme nts CULTURE, URINE (test code = 69322) SPECIMEN NUMBER: [id number] Delfino Cedeño, [id number] 00:00:00* Test Item Value Reference Range Interpretation Comme nts CULTURE, URINE (test code = 17921) SPECIMEN NUMBER: [id number] Delfino Cedeño, [id number] 00:00:00* Test Item Value Reference Range Interpretation Comme nts CULTURE, URINE (test code = 09582) SPECIMEN NUMBER: [id number] Delfino Cedeño, [id number] 00:00:00* Test Item Value Reference Range Interpretation Comme nts CULTURE, URINE (test code = 22665) SPECIMEN NUMBER: [id number] Delfino Cedeño, [id number] 00:00:00* Test Item Value Reference Range Interpretation Comme nts CULTURE, URINE (test code = 18149) SPECIMEN NUMBER: [id number] Delfino Cedeño, [id number] 00:00:00* Test Item Value Reference Range Interpretation Comme nts CULTURE, URINE (test code = 87731) SPECIMEN NUMBER: [id number] Delfino SarmientoLTNIALL, [id number] 00:00:00* Test Item Value Reference Range Interpretation Comme nts CULTURE, URINE (test code = 79837) SPECIMEN NUMBER: [id number] Delfino Cedeño, [id number] 00:00:00* Test Item Value Reference Range Interpretation Comme nts CULTURE, URINE (test code = 89926) SPECIMEN NUMBER: [id number] Delfino Cedeño, [id number] 00:00:00* Test Item Value Reference Range Interpretation Comme nts CULTURE, URINE (test code = 75876) SPECIMEN NUMBER: [id number] Delfino Cedeño, [id number] 00:00:00* Test Item Value Reference Range Interpretation Comme nts CULTURE, URINE (test code = 24519) SPECIMEN NUMBER: [id number] Delfino SarmientoLTNIALL, [id number] 00:00:00* Test Item Value Reference Range Interpretation Comme nts CULTURE, URINE (test code = 63671) SPECIMEN NUMBER: [id number] Delfino Cedeño, [id number] 00:00:00* Test Item Value Reference Range Interpretation Comme nts CULTURE, URINE (test code = 62010) SPECIMEN NUMBER: [id number] Delfino Cedeño, [id number] 00:00:00* Test Item Value Reference Range Interpretation Comme nts CULTURE, URINE (test code = 25422) SPECIMEN NUMBER: [id number] Delfino SarmientoLTNIALL, [id number] 00:00:00* Test Item Value Reference Range Interpretation Comme nts CULTURE, URINE (test code = 95209) SPECIMEN NUMBER: [id number] Delfino SarmientoLTNIALL, [id number] 00:00:00* Test Item Value Reference Range Interpretation Comme nts CULTURE, URINE (test code = 16230) SPECIMEN NUMBER: [id number] Delfino SarmientoLTNIALL, [id number] 00:00:00* Test Item Value Reference Range Interpretation Comme nts CULTURE, URINE (test code = 23921) SPECIMEN NUMBER: [id number] Delfino SarmientoLTNIALL, [id number] 00:00:00* Test Item Value Reference Range Interpretation Comme nts CULTURE, URINE (test code = 96869) SPECIMEN NUMBER: [id number] Delfino SarmientoLTNIALL, [id number] 00:00:00* Test Item Value Reference Range Interpretation Comme nts CULTURE, URINE (test code = 73866) SPECIMEN NUMBER: [id number] Delfino Cedeño, [id number] 00:00:00* Test Item Value Reference Range Interpretation Comme nts CULTURE, URINE (test code = 76745) SPECIMEN NUMBER: [id number] Delfino Cedeño [id number] 00:00:00* Test Item Value Reference Range Interpretation Comme nts CULTURE, URINE (test code = 33823) SPECIMEN NUMBER: [id number] Delfino Cedeño [id number] 00:00:00* Test Item Value Reference Range Interpretation Comme nts CULTURE, URINE (test code = 25468) SPECIMEN NUMBER: [id number] Delfino OrtaREFERRAL- REQUEST/[id number] 15:45:25Ordered by an unspecified provider.[facility] [id number] 11:03:25* Test Item Value Reference Range Interpretation Comments BICTEGRAVIR (test code = 805497) Susceptible CABOTEGRAVIR (test code = 895422) Susceptible DOLUTEGRAVIR (test code = 68216) Susceptible ELVITEGRAVIR (test code = 86416) Susceptible RALTEGRAVIR (test code = 76256) Susceptible DRUG RESIST MUTATIONS (test code = 199630) INSTI (test code = 69375) None ACC RESIST MUTATIONS (test code = 088982) ACCESSORY MUT: (test code = 02985) None OTHER MUTATIONS (test code = 943666) INSTI (test code = 82108) SEE BELOW HIV-1 SUBTYPE (test code = 322390) B MESA HIVDB PRESTON (test code = 158291) HIVDB_9.6 Other Mutations (INSTI): S24G, A38R, L45S, [...] with the ARV. Methodology:Testing methodology is reverse daycare worker polymerase chainreaction (RT-PCR) and next-generation sequencing (NGS) of theintegrase (IN) region of the HIV-1 polymerase ([place]) gene. HIV-1integrase inhibitor resistance mutations and associatedsusceptibility interpretations are assigned relative to the HIV-1subtype B consensus sequence utilizing the genotypic resistanceinterpretation algorithm of the [place] [facility] Drug ResistanceDatabase (HIVDB). This test detects HIV-1 drug resistance mutations at a frequencyas low as 10%, which may account for differences in resistanceinterpretations between methods. Test results should be used andinterpreted in the context of clinical findings and other laboratorytest results. Disclaimer:This test was developed and its performance characteristicsdetermined by [facility] ([facility]). It has not beencleared or approved by the U.[place]. Food and Drug Administration (FDA).The FDA has determined that such clearance or approval is notnecessary. This test is used for clinical purposes and should not beregarded as investigational or for research. [facility] is qualified toperform high complexity testing under the Clinical LaboratoryImprovement Amendments (CLIA). TESTING PERFORMED AT [facility] [address] [place] [address], [facility], [place] [address] CLIA NO: [id number] UNLESS OTHERWISE INDICATED, ALL TESTING PERFORMED AT [facility] [address] [place] [id number] [employer] SERVICES MANAGER: ABBI SHORT M.D. [place] NUMBER [id number] [facility] [place]. [id number] HIV-1 INTEGRASE INHIBITOR [id number] 00:00:00* Test Item Value Reference Range Interpretation Comme nts BICTEGRAVIR (test code = 362776) Susceptible CABOTEGRAVIR (test code = 797529) Susceptible DOLUTEGRAVIR (test code = 63053) Susceptible ELVITEGRAVIR (test code = 18291) Susceptible RALTEGRAVIR (test code = 87789) Susceptible DRUG RESIST MUTATIONS (test code = 436090) INSTI (test code = 39141) None ACC RESIST MUTATIONS (test c ode = 681501) ACCESSORY MUT: (test code = 37917) None OTHER MUTATIONS (test code = 789990) INSTI (test code = 92891) SEE BELOW HIV-1 SUBTYPE (test code = 043287) B NATALIE HIVDB [facility] (test cod e = 120284) HIVDB_9.6 Delfino Schumacher AustinHIV-1 INTEGRASE INHIBITOR [id number] 00:00:00* Test Item Value Reference Range Interpretation Comme nts BICTEGRAVIR (test code = 157129) Susceptible CABOTEGRAVIR (test code = 248207) Susceptible DOLUTEGRAVIR (test code = 07012) Susceptible ELVITEGRAVIR (test code = 01563) Susceptible RALTEGRAVIR (test code = 30493) Susceptible DRUG RESIST MUTATIONS (test code = 066192) INSTI (test code = 05334) None ACC RESIST MUTATIONS (test c ode = 784912) ACCESSORY MUT: (test code = 42745) None OTHER MUTATIONS (test code = 237579) INSTI (test code = 04924) SEE BELOW HIV-1 SUBTYPE (test code = 369270) B Flasma HIVDB PRE[place] (test cod e = 704198) HIVDB_9.6 Delfino Schumacher AustinHIV-1 INTEGRASE INHIBITOR [id number] 00:00:00* Test Item Value Reference Range Interpretation Comme nts BICTEGRAVIR (test code = 914652) Susceptible CABOTEGRAVIR (test code = 431354) Susceptible DOLUTEGRAVIR (test code = 60064) Susceptible ELVITEGRAVIR (test code = 10829) Susceptible RALTEGRAVIR (test code = 78331) Susceptible DRUG RESIST MUTATIONS (test code = 763331) INSTI (test code = 16551) None ACC RESIST MUTATIONS (test c ode = 771474) ACCESSORY MUT: (test code = 57892) None OTHER MUTATIONS (test code = 827560) INSTI (test code = 94042) SEE BELOW HIV-1 SUBTYPE (test code = 386962) B MESA HIVDB [facility] (test cod e = 361504) HIVDB_9.6 Delfino Schumacher AustinHIV-1 INTEGRASE INHIBITOR [id number] 00:00:00* Test Item Value Reference Range Interpretation Comme nts BICTEGRAVIR (test code = 101376) Susceptible CABOTEGRAVIR (test code = 668030) Susceptible DOLUTEGRAVIR (test code = 12127) Susceptible ELVITEGRAVIR (test code = 41651) Susceptible RALTEGRAVIR (test code = 01181) Susceptible DRUG RESIST MUTATIONS (test code = 619922) INSTI (test code = 23268) None ACC RESIST MUTATIONS (test c ode = 301147) ACCESSORY MUT: (test code = 26209) None OTHER MUTATIONS (test code = 701027) INSTI (test code = 48882) SEE BELOW HIV-1 SUBTYPE (test code = 914255) B MESA HIVDB [facility] (test cod e = 026603) HIVDB_9.6 Delfino Schumacher AustinHIV-1 INTEGRASE INHIBITOR [id number] 00:00:00* Test Item Value Reference Range Interpretation Comme nts BICTEGRAVIR (test code = 076497) Susceptible CABOTEGRAVIR (test code = 584226) Susceptible DOLUTEGRAVIR (test code = 20565) Susceptible ELVITEGRAVIR (test code = 36667) Susceptible RALTEGRAVIR (test code = 25832) Susceptible DRUG RESIST MUTATIONS (test code = 071396) INSTI (test code = 70504) None ACC RESIST MUTATIONS (test c ode = 287376) ACCESSORY MUT: (test code = 98008) None OTHER MUTATIONS (test code = 888173) INSTI (test code = 60436) SEE BELOW HIV-1 SUBTYPE (test code = 708076) B MESA HIVDB [facility] (test cod e = 214296) HIVDB_9.6 Delfino Schumacher AustinHIV-1 INTEGRASE INHIBITOR [id number] 00:00:00* Test Item Value Reference Range Interpretation Comme nts BICTEGRAVIR (test code = 420457) Susceptible CABOTEGRAVIR (test code = 311622) Susceptible DOLUTEGRAVIR (test code = 49832) Susceptible ELVITEGRAVIR (test code = 62638) Susceptible RALTEGRAVIR (test code = 86009) Susceptible DRUG RESIST MUTATIONS (test code = 323146) INSTI (test code = 05852) None ACC RESIST MUTATIONS (test c ode = 070158) ACCESSORY MUT: (test code = 62443) None OTHER MUTATIONS (test code = 722785) INSTI (test code = 54069) SEE BELOW HIV-1 SUBTYPE (test code = 684128) B MESA HIVDB [facility] (test cod e = 863523) HIVDB_9.6 Delfino Schumacher AustinHIV-1 INTEGRASE INHIBITOR [id number] 00:00:00* Test Item Value Reference Range Interpretation Comme nts BICTEGRAVIR (test code = 967738) Susceptible CABOTEGRAVIR (test code = 867053) Susceptible DOLUTEGRAVIR (test code = 91558) Susceptible ELVITEGRAVIR (test code = 72026) Susceptible RALTEGRAVIR (test code = 51183) Susceptible DRUG RESIST MUTATIONS (test code = 626483) INSTI (test code = 52932) None ACC RESIST MUTATIONS (test c ode = 105609) ACCESSORY MUT: (test code = 54135) None OTHER MUTATIONS (test code = 572163) INSTI (test code = 82314) SEE BELOW HIV-1 SUBTYPE (test code = 981693) B MESA HIVDB [facility] (test cod e = 505337) HIVDB_9.6 Delfino Schumacher AustinHIV-1 INTEGRASE INHIBITOR [id number] 00:00:00* Test Item Value Reference Range Interpretation Comme nts BICTEGRAVIR (test code = 639886) Susceptible CABOTEGRAVIR (test code = 167072) Susceptible DOLUTEGRAVIR (test code = 91141) Susceptible ELVITEGRAVIR (test code = 28246) Susceptible RALTEGRAVIR (test code = 56007) Susceptible DRUG RESIST MUTATIONS (test code = 098431) INSTI (test code = 32912) None ACC RESIST MUTATIONS (test c ode = 833384) ACCESSORY MUT: (test code = 12768) None OTHER MUTATIONS (test code = 732400) INSTI (test code = 12110) SEE BELOW HIV-1 SUBTYPE (test code = 459584) B MESA HIVDB [facility] (test cod e = 723122) HIVDB_9.6 Delfino Schumacher AustinHIV-1 INTEGRASE INHIBITOR [id number] 00:00:00* Test Item Value Reference Range Interpretation Comme nts BICTEGRAVIR (test code = 883501) Susceptible CABOTEGRAVIR (test code = 042965) Susceptible DOLUTEGRAVIR (test code = 85938) Susceptible ELVITEGRAVIR (test code = 55923) Susceptible RALTEGRAVIR (test code = 36893) Susceptible DRUG RESIST MUTATIONS (test code = 001383) INSTI (test code = 08537) None ACC RESIST MUTATIONS (test c ode = 661229) ACCESSORY MUT: (test code = 18746) None OTHER MUTATIONS (test code = 913271) INSTI (test code = 70980) SEE BELOW HIV-1 SUBTYPE (test code = 695774) B MESA HIVDB [facility] (test cod e = 082998) HIVDB_9.6 Delfino Schumacher AustinHIV-1 INTEGRASE INHIBITOR [id number] 00:00:00* Test Item Value Reference Range Interpretation Comme nts BICTEGRAVIR (test code = 011282) Susceptible CABOTEGRAVIR (test code = 127599) Susceptible DOLUTEGRAVIR (test code = 84902) Susceptible ELVITEGRAVIR (test code = 38575) Susceptible RALTEGRAVIR (test code = 37018) Susceptible DRUG RESIST MUTATIONS (test code = 593457) INSTI (test code = 12574) None ACC RESIST MUTATIONS (test c ode = 012140) ACCESSORY MUT: (test code = 72653) None OTHER MUTATIONS (test code = 169241) INSTI (test code = 32494) SEE BELOW HIV-1 SUBTYPE (test code = 538008) B MESA HIVDB [facility] (test cod e = 205056) HIVDB_9.6 Delfino Schumacher AustinHIV-1 INTEGRASE INHIBITOR [id number] 00:00:00* Test Item Value Reference Range Interpretation Comme nts BICTEGRAVIR (test code = 741794) Susceptible CABOTEGRAVIR (test code = 818884) Susceptible DOLUTEGRAVIR (test code = 83160) Susceptible ELVITEGRAVIR (test code = 06522) Susceptible RALTEGRAVIR (test code = 00097) Susceptible DRUG RESIST MUTATIONS (test code = 117246) INSTI (test code = 01263) None ACC RESIST MUTATIONS (test c ode = 684953) ACCESSORY MUT: (test code = 44087) None OTHER MUTATIONS (test code = 709672) INSTI (test code = 05455) SEE BELOW HIV-1 SUBTYPE (test code = 451519) B MESA HIVDB [facility] (test cod e = 120627) HIVDB_9.6 Delfino Schumacher AustinHIV-1 INTEGRASE INHIBITOR [id number] 00:00:00* Test Item Value Reference Range Interpretation Comme nts BICTEGRAVIR (test code = 797413) Susceptible CABOTEGRAVIR (test code = 689265) Susceptible DOLUTEGRAVIR (test code = 54924) Susceptible ELVITEGRAVIR (test code = 07452) Susceptible RALTEGRAVIR (test code = 10189) Susceptible DRUG RESIST MUTATIONS (test code = 634580) INSTI (test code = 88746) None ACC RESIST MUTATIONS (test c ode = 932464) ACCESSORY MUT: (test code = 90431) None OTHER MUTATIONS (test code = 706657) INSTI (test code = 45200) SEE BELOW HIV-1 SUBTYPE (test code = 655379) B MESA HIVDB [facility] (test cod e = 885987) HIVDB_9.6 Delfino OrtaHIV-1 INTEGRASE INHIBITOR [id number] 00:00:00* Test Item Value Reference Range Interpretation Comme nts BICTEGRAVIR (test code = 640403) Susceptible CABOTEGRAVIR (test code = 035651) Susceptible DOLUTEGRAVIR (test code = 65768) Susceptible ELVITEGRAVIR (test code = 92299) Susceptible RALTEGRAVIR (test code = 35523) Susceptible DRUG RESIST MUTATIONS (test code = 081616) INSTI (test code = 56449) None ACC RESIST MUTATIONS (test c ode = 722225) ACCESSORY MUT: (test code = 09768) None OTHER MUTATIONS (test code = 776076) INSTI (test code = 83732) SEE BELOW HIV-1 SUBTYPE (test code = 941840) B MESA HIVDB [facility] (test cod e = 436644) HIVDB_9.6 Delfino Schumacher AustinHIV-1 INTEGRASE INHIBITOR [id number] 00:00:00* Test Item Value Reference Range Interpretation Comme nts BICTEGRAVIR (test code = 011344) Susceptible CABOTEGRAVIR (test code = 432699) Susceptible DOLUTEGRAVIR (test code = 06866) Susceptible ELVITEGRAVIR (test code = 19043) Susceptible RALTEGRAVIR (test code = 19028) Susceptible DRUG RESIST MUTATIONS (test code = 519247) INSTI (test code = 08746) None ACC RESIST MUTATIONS (test c ode = 761800) ACCESSORY MUT: (test code = 66113) None OTHER MUTATIONS (test code = 733470) INSTI (test code = 50048) SEE BELOW HIV-1 SUBTYPE (test code = 460504) B MESA HIVDB [facility] (test cod e = 574929) HIVDB_9.6 Delfino Schumacher AustinHIV-1 INTEGRASE INHIBITOR [id number] 00:00:00* Test Item Value Reference Range Interpretation Comme nts BICTEGRAVIR (test code = 262052) Susceptible CABOTEGRAVIR (test code = 439702) Susceptible DOLUTEGRAVIR (test code = 33869) Susceptible ELVITEGRAVIR (test code = 90506) Susceptible RALTEGRAVIR (test code = 39387) Susceptible DRUG RESIST MUTATIONS (test code = 053541) INSTI (test code = 30198) None ACC RESIST MUTATIONS (test c ode = 297749) ACCESSORY MUT: (test code = 31919) None OTHER MUTATIONS (test code = 828785) INSTI (test code = 56046) SEE BELOW HIV-1 SUBTYPE (test code = 402488) B MESA HIVDB [facility] (test cod e = 671537) HIVDB_9.6 Delfino Schumacher AustinHIV-1 INTEGRASE INHIBITOR [id number] 00:00:00* Test Item Value Reference Range Interpretation Comme nts BICTEGRAVIR (test code = 904287) Susceptible CABOTEGRAVIR (test code = 949460) Susceptible DOLUTEGRAVIR (test code = 12884) Susceptible ELVITEGRAVIR (test code = 35406) Susceptible RALTEGRAVIR (test code = 89527) Susceptible DRUG RESIST MUTATIONS (test code = 216709) INSTI (test code = 70131) None ACC RESIST MUTATIONS (test c ode = 802389) ACCESSORY MUT: (test code = 69729) None OTHER MUTATIONS (test code = 740990) INSTI (test code = 14923) SEE BELOW HIV-1 SUBTYPE (test code = 390741) B MESA HIVDB [facility] (test cod e = 979032) HIVDB_9.6 Delfino Schumacher AustinHIV-1 INTEGRASE INHIBITOR [id number] 00:00:00* Test Item Value Reference Range Interpretation Comme nts BICTEGRAVIR (test code = 176995) Susceptible CABOTEGRAVIR (test code = 800005) Susceptible DOLUTEGRAVIR (test code = 12172) Susceptible ELVITEGRAVIR (test code = 95346) Susceptible RALTEGRAVIR (test code = 79717) Susceptible DRUG RESIST MUTATIONS (test code = 760528) INSTI (test code = 36670) None ACC RESIST MUTATIONS (test c ode = 052300) ACCESSORY MUT: (test code = 37262) None OTHER MUTATIONS (test code = 753649) INSTI (test code = 37677) SEE BELOW HIV-1 SUBTYPE (test code = 773483) B MESA HIVDB [facility] (test cod e = 012191) HIVDB_9.6 Delfino Schumacher AustinHIV-1 INTEGRASE INHIBITOR [id number] 00:00:00* Test Item Value Reference Range Interpretation Comme nts BICTEGRAVIR (test code = 761678) Susceptible CABOTEGRAVIR (test code = 473829) Susceptible DOLUTEGRAVIR (test code = 57182) Susceptible ELVITEGRAVIR (test code = 26674) Susceptible RALTEGRAVIR (test code = 89739) Susceptible DRUG RESIST MUTATIONS (test code = 966534) INSTI (test code = 84665) None ACC RESIST MUTATIONS (test c ode = 911795) ACCESSORY MUT: (test code = 95055) None OTHER MUTATIONS (test code = 765341) INSTI (test code = 72845) SEE BELOW HIV-1 SUBTYPE (test code = 599295) B MESA HIVDB [facility] (test cod e = 224640) HIVDB_9.6 Delfino Schumacher AustinHIV-1 INTEGRASE INHIBITOR [id number] 00:00:00* Test Item Value Reference Range Interpretation Comme nts BICTEGRAVIR (test code = 822228) Susceptible CABOTEGRAVIR (test code = 955684) Susceptible DOLUTEGRAVIR (test code = 38316) Susceptible ELVITEGRAVIR (test code = 16471) Susceptible RALTEGRAVIR (test code = 11007) Susceptible DRUG RESIST MUTATIONS (test code = 754445) INSTI (test code = 21307) None ACC RESIST MUTATIONS (test c ode = 103009) ACCESSORY MUT: (test code = 94139) None OTHER MUTATIONS (test code = 899220) INSTI (test code = 94567) SEE BELOW HIV-1 SUBTYPE (test code = 358220) B MESA HIVDB [facility] (test cod e = 441240) HIVDB_9.6 Delfino OrtaHIV-1 INTEGRASE INHIBITOR [id number] 00:00:00* Test Item Value Reference Range Interpretation Comme nts BICTEGRAVIR (test code = 415996) Susceptible CABOTEGRAVIR (test code = 155229) Susceptible DOLUTEGRAVIR (test code = 17792) Susceptible ELVITEGRAVIR (test code = 53020) Susceptible RALTEGRAVIR (test code = 42548) Susceptible DRUG RESIST MUTATIONS (test code = 851566) INSTI (test code = 55822) None ACC RESIST MUTATIONS (test c ode = 119669) ACCESSORY MUT: (test code = 16930) None OTHER MUTATIONS (test code = 204756) INSTI (test code = 18637) SEE BELOW HIV-1 SUBTYPE (test code = 405617) B MESA HIVDB [facility] (test cod e = 958697) HIVDB_9.6 Delfino Schumacher AustinHIV-1 INTEGRASE INHIBITOR [id number] 00:00:00* Test Item Value Reference Range Interpretation Comme nts BICTEGRAVIR (test code = 254853) Susceptible CABOTEGRAVIR (test code = 269274) Susceptible DOLUTEGRAVIR (test code = 63936) Susceptible ELVITEGRAVIR (test code = 31927) Susceptible RALTEGRAVIR (test code = 17111) Susceptible DRUG RESIST MUTATIONS (test code = 912007) INSTI (test code = 69475) None ACC RESIST MUTATIONS (test c ode = 218541) ACCESSORY MUT: (test code = 52598) None OTHER MUTATIONS (test code = 427508) INSTI (test code = 02476) SEE BELOW HIV-1 SUBTYPE (test code = 985776) B MESA HIVDB [facility] (test cod e = 236394) HIVDB_9.6 Delfino Schumacher AustinHIV-1 INTEGRASE INHIBITOR [id number] 00:00:00* Test Item Value Reference Range Interpretation Comme nts BICTEGRAVIR (test code = 678289) Susceptible CABOTEGRAVIR (test code = 941887) Susceptible DOLUTEGRAVIR (test code = 09760) Susceptible ELVITEGRAVIR (test code = 08933) Susceptible RALTEGRAVIR (test code = 87107) Susceptible DRUG RESIST MUTATIONS (test code = 183100) INSTI (test code = 98674) None ACC RESIST MUTATIONS (test c ode = 900894) ACCESSORY MUT: (test code = 03875) None OTHER MUTATIONS (test code = 400015) INSTI (test code = 22825) SEE BELOW HIV-1 SUBTYPE (test code = 150019) B MESA HIVDB [facility] (test cod e = 982090) HIVDB_9.6 Delfino Schumacher AustinHIV-1 INTEGRASE INHIBITOR [id number] 00:00:00* Test Item Value Reference Range Interpretation Comme nts BICTEGRAVIR (test code = 839916) Susceptible CABOTEGRAVIR (test code = 478097) Susceptible DOLUTEGRAVIR (test code = 67085) Susceptible ELVITEGRAVIR (test code = 44424) Susceptible RALTEGRAVIR (test code = 28640) Susceptible DRUG RESIST MUTATIONS (test code = 683851) INSTI (test code = 32336) None ACC RESIST MUTATIONS (test c ode = 994140) ACCESSORY MUT: (test code = 85185) None OTHER MUTATIONS (test code = 408703) INSTI (test code = 77762) SEE BELOW HIV-1 SUBTYPE (test code = 501353) B MESA HIVDB [facility] (test cod e = 032486) HIVDB_9.6 Delfino OrtaHIV-1 INTEGRASE INHIBITOR [id number] 00:00:00* Test Item Value Reference Range Interpretation Comme nts BICTEGRAVIR (test code = 053108) Susceptible CABOTEGRAVIR (test code = 240800) Susceptible DOLUTEGRAVIR (test code = 03447) Susceptible ELVITEGRAVIR (test code = 03096) Susceptible RALTEGRAVIR (test code = 95488) Susceptible DRUG RESIST MUTATIONS (test code = 609953) INSTI (test code = 29474) None ACC RESIST MUTATIONS (test c ode = 964677) ACCESSORY MUT: (test code = 09504) None OTHER MUTATIONS (test code = 192457) INSTI (test code = 35437) SEE BELOW HIV-1 SUBTYPE (test code = 636528) B MESA HIVDB PRE[facility] (test cod e = 185327) HIVDB_9.6 Delfino Schumacher AustinHIV-1 INTEGRASE INHIBITOR [id number] 00:00:00* Test Item Value Reference Range Interpretation Comme nts BICTEGRAVIR (test code = 159140) Susceptible CABOTEGRAVIR (test code = 335313) Susceptible DOLUTEGRAVIR (test code = 42324) Susceptible ELVITEGRAVIR (test code = 45246) Susceptible RALTEGRAVIR (test code = 71273) Susceptible DRUG RESIST MUTATIONS (test code = 095327) INSTI (test code = 39499) None ACC RESIST MUTATIONS (test c ode = 149321) ACCESSORY MUT: (test code = 66622) None OTHER MUTATIONS (test code = 493628) INSTI (test code = 17125) SEE BELOW HIV-1 SUBTYPE (test code = 746982) B MESA HIVDB PRE[facility] (test cod e = 658423) HIVDB_9.6 Delfino Schumacher AustinHIV-1 INTEGRASE INHIBITOR [id number] 00:00:00* Test Item Value Reference Range Interpretation Comme nts BICTEGRAVIR (test code = 700758) Susceptible CABOTEGRAVIR (test code = 391292) Susceptible DOLUTEGRAVIR (test code = 82718) Susceptible ELVITEGRAVIR (test code = 82991) Susceptible RALTEGRAVIR (test code = 66607) Susceptible DRUG RESIST MUTATIONS (test code = 383289) INSTI (test code = 29357) None ACC RESIST MUTATIONS (test c ode = 237497) ACCESSORY MUT: (test code = 98091) None OTHER MUTATIONS (test code = 188917) INSTI (test code = 84662) SEE BELOW HIV-1 SUBTYPE (test code = 012433) B MESA HIVDB [facility] (test cod e = 355599) HIVDB_9.6 Delfino Schumacher AustinHIV-1 INTEGRASE INHIBITOR [id number] 00:00:00* Test Item Value Reference Range Interpretation Comme nts BICTEGRAVIR (test code = 385974) Susceptible CABOTEGRAVIR (test code = 219706) Susceptible DOLUTEGRAVIR (test code = 82415) Susceptible ELVITEGRAVIR (test code = 71382) Susceptible RALTEGRAVIR (test code = 99224) Susceptible DRUG RESIST MUTATIONS (test code = 826279) INSTI (test code = 48988) None ACC RESIST MUTATIONS (test c ode = 310829) ACCESSORY MUT: (test code = 02870) None OTHER MUTATIONS (test code = 401873) INSTI (test code = 94338) SEE BELOW HIV-1 SUBTYPE (test code = 928930) B MESA HIVDB [facility]ST[facility] (test cod e = 600763) HIVDB_9.6 Delfino Schumacher AustinHIV-1 INTEGRASE INHIBITOR [id number] 00:00:00* Test Item Value Reference Range Interpretation Comme nts BICTEGRAVIR (test code = 694628) Susceptible CABOTEGRAVIR (test code = 755951) Susceptible DOLUTEGRAVIR (test code = 16225) Susceptible ELVITEGRAVIR (test code = 88200) Susceptible RALTEGRAVIR (test code = 17832) Susceptible DRUG RESIST MUTATIONS (test code = 037004) INSTI (test code = 03919) None ACC RESIST MUTATIONS (test c ode = 314558) ACCESSORY MUT: (test code = 35731) None OTHER MUTATIONS (test code = 466825) INSTI (test code = 55322) SEE BELOW HIV-1 SUBTYPE (test code = 396628) B MESA HIVDB [facility] (test cod e = 144874) HIVDB_9.6 Delfino Schumacher AustinHIV-1 INTEGRASE INHIBITOR [id number] 00:00:00* Test Item Value Reference Range Interpretation Comme nts BICTEGRAVIR (test code = 047451) Susceptible CABOTEGRAVIR (test code = 429670) Susceptible DOLUTEGRAVIR (test code = 97436) Susceptible ELVITEGRAVIR (test code = 67902) Susceptible RALTEGRAVIR (test code = 21450) Susceptible DRUG RESIST MUTATIONS (test code = 711929) INSTI (test code = 50014) None ACC RESIST MUTATIONS (test c ode = 973337) ACCESSORY MUT: (test code = 54654) None OTHER MUTATIONS (test code = 949269) INSTI (test code = 15485) SEE BELOW HIV-1 SUBTYPE (test code = 989876) B MESA HIVDB [facility] (test cod e = 029681) HIVDB_9.6 Delfino Schumacher AustinHIV-1 INTEGRASE INHIBITOR [id number] 00:00:00* Test Item Value Reference Range Interpretation Comme nts BICTEGRAVIR (test code = 473310) Susceptible CABOTEGRAVIR (test code = 311971) Susceptible DOLUTEGRAVIR (test code = 72680) Susceptible ELVITEGRAVIR (test code = 66373) Susceptible RALTEGRAVIR (test code = 65796) Susceptible DRUG RESIST MUTATIONS (test code = 025432) INSTI (test code = 99679) None ACC RESIST MUTATIONS (test c ode = 256063) ACCESSORY MUT: (test code = 76660) None OTHER MUTATIONS (test code = 896040) INSTI (test code = 34253) SEE BELOW HIV-1 SUBTYPE (test code = 069758) B MESA HIVDB [facility] (test cod e = 908738) HIVDB_9.6 Delfino OrtaHIV-1 INTEGRASE INHIBITOR [id number] 00:00:00* Test Item Value Reference Range Interpretation Comme nts BICTEGRAVIR (test code = 977256) Susceptible CABOTEGRAVIR (test code = 686118) Susceptible DOLUTEGRAVIR (test code = 32730) Susceptible ELVITEGRAVIR (test code = 93763) Susceptible RALTEGRAVIR (test code = 36621) Susceptible DRUG RESIST MUTATIONS (test code = 646594) INSTI (test code = 51509) None ACC RESIST MUTATIONS (test c ode = 324023) ACCESSORY MUT: (test code = 75827) None OTHER MUTATIONS (test code = 883049) INSTI (test code = 57561) SEE BELOW HIV-1 SUBTYPE (test code = 801457) B MESA HIVDB [facility]ST[facility] (test cod e = 785886) HIVDB_9.6 Delfino Schumacher AustinHIV-1 INTEGRASE INHIBITOR [id number] 00:00:00* Test Item Value Reference Range Interpretation Comme nts BICTEGRAVIR (test code = 642573) Susceptible CABOTEGRAVIR (test code = 844174) Susceptible DOLUTEGRAVIR (test code = 20540) Susceptible ELVITEGRAVIR (test code = 18587) Susceptible RALTEGRAVIR (test code = 67864) Susceptible DRUG RESIST MUTATIONS (test code = 123075) INSTI (test code = 00482) None ACC RESIST MUTATIONS (test c ode = 497026) ACCESSORY MUT: (test code = 35107) None OTHER MUTATIONS (test code = 788271) INSTI (test code = 72728) SEE BELOW HIV-1 SUBTYPE (test code = 340334) B MESA HIVDB PREST[facility] (test cod e = 163297) HIVDB_9.6 Delfino Schumacher AustinHIV-1 INTEGRASE INHIBITOR [id number] 00:00:00* Test Item Value Reference Range Interpretation Comme nts BICTEGRAVIR (test code = 904795) Susceptible CABOTEGRAVIR (test code = 803054) Susceptible DOLUTEGRAVIR (test code = 42192) Susceptible ELVITEGRAVIR (test code = 23743) Susceptible RALTEGRAVIR (test code = 52283) Susceptible DRUG RESIST MUTATIONS (test code = 520594) INSTI (test code = 80279) None ACC RESIST MUTATIONS (test c ode = 132952) ACCESSORY MUT: (test code = 04396) None OTHER MUTATIONS (test code = 092852) INSTI (test code = 22877) SEE BELOW HIV-1 SUBTYPE (test code = 003139) B MESA HIVDB PRESTON (test cod e = 557125) HIVDB_9.6 Delfino Schumacher AustinCD4/CD8 LYMPHOCYTE [id number] 12:40:38* Test Item Value Reference Range Interpretation Comme nts ABSOLUTE LYMPHOCYTES (test code = 55659) 941 PER UL 2820-3606 L Specimen rec eived outside of temperature specifications. Resultsreviewed by Abbi Short M.D. PERCENT CD4 (test code = 11830) 16.3 % 34.0-65.0 L ABSOLUTE CD4 (test code = 37052) 154 PER UL 520-1470 L PERCENT CD8 (test code = 39812) 52.5 % 13.0-38.0 H ABSOLUTE CD8 (test code = 69081) 494 PER UL 205-920 CD4/CD8 RATIO (test code = 85935) 0.31 0.92-3.41 L CD4/CD8 LYMPHOCYTE [id number] 00:00:00* Test Item Value Reference Range Interpretation Comme nts ABSOLUTE LYMPHOCYTES (test c ode = 97311) 941 PERUL PERCENT CD4 (test code = 19143) 16.3 % ABSOLUTE CD4 (test code = 93607) 154 PERUL PERCENT CD8 (test code = 61990) 52.5 % ABSOLUTE CD8 (test code = 81918) 494 PERUL CD4/CD8 RATIO (test code = 88131) 0.31 Delfino Schumacher AustinCD4/CD8 LYMPHOCYTE [id number] 00:00:00* Test Item Value Reference Range Interpretation Comme nts ABSOLUTE LYMPHOCYTES (test c ode = 03902) 941 PERUL PERCENT CD4 (test code = 18506) 16.3 % ABSOLUTE CD4 (test code = 58108) 154 PERUL PERCENT CD8 (test code = 03493) 52.5 % ABSOLUTE CD8 (test code = 77254) 494 PERUL CD4/CD8 RATIO (test code = 35628) 0.31 Delfino Schumacher AustinCD4/CD8 LYMPHOCYTE [id number] 00:00:00* Test Item Value Reference Range Interpretation Comme nts ABSOLUTE LYMPHOCYTES (test c ode = 38322) 941 PERUL PERCENT CD4 (test code = 43216) 16.3 % ABSOLUTE CD4 (test code = 26206) 154 PERUL PERCENT CD8 (test code = 72476) 52.5 % ABSOLUTE CD8 (test code = 32531) 494 PERUL CD4/CD8 RATIO (test code = 53683) 0.31 Delfino Schumacher AustinCD4/CD8 LYMPHOCYTE [id number] 00:00:00* Test Item Value Reference Range Interpretation Comme nts ABSOLUTE LYMPHOCYTES (test c ode = 76620) 941 PERUL PERCENT CD4 (test code = 04078) 16.3 % ABSOLUTE CD4 (test code = 83595) 154 PERUL PERCENT CD8 (test code = 03130) 52.5 % ABSOLUTE CD8 (test code = 10610) 494 PERUL CD4/CD8 RATIO (test code = 82929) 0.31 Delfino Schumacher AustinCD4/CD8 LYMPHOCYTE [id number] 00:00:00* Test Item Value Reference Range Interpretation Comme nts ABSOLUTE LYMPHOCYTES (test c ode = 72359) 941 PERUL PERCENT CD4 (test code = 53254) 16.3 % ABSOLUTE CD4 (test code = 26082) 154 PERUL PERCENT CD8 (test code = 56291) 52.5 % ABSOLUTE CD8 (test code = 50003) 494 PERUL CD4/CD8 RATIO (test code = 24593) 0.31 Delfino Schumacher AustinCD4/CD8 LYMPHOCYTE [id number] 00:00:00* Test Item Value Reference Range Interpretation Comme nts ABSOLUTE LYMPHOCYTES (test c ode = 81403) 941 PERUL PERCENT CD4 (test code = 33479) 16.3 % ABSOLUTE CD4 (test code = 91856) 154 PERUL PERCENT CD8 (test code = 14624) 52.5 % ABSOLUTE CD8 (test code = 85675) 494 PERUL CD4/CD8 RATIO (test code = 96041) 0.31 Delfino Schumacher AustinCD4/CD8 LYMPHOCYTE [id number] 00:00:00* Test Item Value Reference Range Interpretation Comme nts ABSOLUTE LYMPHOCYTES (test c ode = 06492) 941 PERUL PERCENT CD4 (test code = 31683) 16.3 % ABSOLUTE CD4 (test code = 57876) 154 PERUL PERCENT CD8 (test code = 16398) 52.5 % ABSOLUTE CD8 (test code = 84074) 494 PERUL CD4/CD8 RATIO (test code = 63007) 0.31 Delfino Schumacher AustinCD4/CD8 LYMPHOCYTE [id number] 00:00:00* Test Item Value Reference Range Interpretation Comme nts ABSOLUTE LYMPHOCYTES (test c ode = 63593) 941 PERUL PERCENT CD4 (test code = 01588) 16.3 % ABSOLUTE CD4 (test code = 30467) 154 PERUL PERCENT CD8 (test code = 87184) 52.5 % ABSOLUTE CD8 (test code = 99030) 494 PERUL CD4/CD8 RATIO (test code = 84503) 0.31 Delfino Schumacher AustinCD4/CD8 LYMPHOCYTE [id number] 00:00:00* Test Item Value Reference Range Interpretation Comme nts ABSOLUTE LYMPHOCYTES (test c ode = 13567) 941 PERUL PERCENT CD4 (test code = 61602) 16.3 % ABSOLUTE CD4 (test code = 54638) 154 PERUL PERCENT CD8 (test code = 48438) 52.5 % ABSOLUTE CD8 (test code = 32849) 494 PERUL CD4/CD8 RATIO (test code = 41320) 0.31 Delfino Schumacher AustinCD4/CD8 LYMPHOCYTE [id number] 00:00:00* Test Item Value Reference Range Interpretation Comme nts ABSOLUTE LYMPHOCYTES (test c ode = 28448) 941 PERUL PERCENT CD4 (test code = 19684) 16.3 % ABSOLUTE CD4 (test code = 25614) 154 PERUL PERCENT CD8 (test code = 12808) 52.5 % ABSOLUTE CD8 (test code = 94663) 494 PERUL CD4/CD8 RATIO (test code = 58826) 0.31 Delfino Schumacher AustinCD4/CD8 LYMPHOCYTE [id number] 00:00:00* Test Item Value Reference Range Interpretation Comme nts ABSOLUTE LYMPHOCYTES (test c ode = 94850) 941 PERUL PERCENT CD4 (test code = 33320) 16.3 % ABSOLUTE CD4 (test code = 45892) 154 PERUL PERCENT CD8 (test code = 07715) 52.5 % ABSOLUTE CD8 (test code = 27008) 494 PERUL CD4/CD8 RATIO (test code = 40489) 0.31 Delfino Schumacher AustinCD4/CD8 LYMPHOCYTE [id number] 00:00:00* Test Item Value Reference Range Interpretation Comme nts ABSOLUTE LYMPHOCYTES (test c ode = 21434) 941 PERUL PERCENT CD4 (test code = 83686) 16.3 % ABSOLUTE CD4 (test code = 62434) 154 PERUL PERCENT CD8 (test code = 55681) 52.5 % ABSOLUTE CD8 (test code = 08124) 494 PERUL CD4/CD8 RATIO (test code = 03449) 0.31 Delfino Schumacher AustinCD4/CD8 LYMPHOCYTE [id number] 00:00:00* Test Item Value Reference Range Interpretation Comme nts ABSOLUTE LYMPHOCYTES (test c ode = 56117) 941 PERUL PERCENT CD4 (test code = 74421) 16.3 % ABSOLUTE CD4 (test code = 13897) 154 PERUL PERCENT CD8 (test code = 15136) 52.5 % ABSOLUTE CD8 (test code = 57480) 494 PERUL CD4/CD8 RATIO (test code = 38899) 0.31 Delfino Schumacher AustinCD4/CD8 LYMPHOCYTE [id number] 00:00:00* Test Item Value Reference Range Interpretation Comme nts ABSOLUTE LYMPHOCYTES (test c ode = 02555) 941 PERUL PERCENT CD4 (test code = 76082) 16.3 % ABSOLUTE CD4 (test code = 28417) 154 PERUL PERCENT CD8 (test code = 09761) 52.5 % ABSOLUTE CD8 (test code = 28399) 494 PERUL CD4/CD8 RATIO (test code = 04215) 0.31 Delfino Schumacher AustinCD4/CD8 LYMPHOCYTE [id number] 00:00:00* Test Item Value Reference Range Interpretation Comme nts ABSOLUTE LYMPHOCYTES (test c ode = 60212) 941 PERUL PERCENT CD4 (test code = 59205) 16.3 % ABSOLUTE CD4 (test code = 80485) 154 PERUL PERCENT CD8 (test code = 05499) 52.5 % ABSOLUTE CD8 (test code = 30920) 494 PERUL CD4/CD8 RATIO (test code = 59721) 0.31 Delfino Schumacher AustinCD4/CD8 LYMPHOCYTE [id number] 00:00:00* Test Item Value Reference Range Interpretation Comme nts ABSOLUTE LYMPHOCYTES (test c ode = 66820) 941 PERUL PERCENT CD4 (test code = 43614) 16.3 % ABSOLUTE CD4 (test code = 06781) 154 PERUL PERCENT CD8 (test code = 56859) 52.5 % ABSOLUTE CD8 (test code = 41046) 494 PERUL CD4/CD8 RATIO (test code = 39149) 0.31 Delfino Schumacher AustinCD4/CD8 LYMPHOCYTE [id number] 00:00:00* Test Item Value Reference Range Interpretation Comme nts ABSOLUTE LYMPHOCYTES (test c ode = 12400) 941 PERUL PERCENT CD4 (test code = 17269) 16.3 % ABSOLUTE CD4 (test code = 04910) 154 PERUL PERCENT CD8 (test code = 84273) 52.5 % ABSOLUTE CD8 (test code = 58374) 494 PERUL CD4/CD8 RATIO (test code = 89454) 0.31 Delfino Schumacher AustinCD4/CD8 LYMPHOCYTE [id number] 00:00:00* Test Item Value Reference Range Interpretation Comme nts ABSOLUTE LYMPHOCYTES (test c ode = 38750) 941 PERUL PERCENT CD4 (test code = 61436) 16.3 % ABSOLUTE CD4 (test code = 04898) 154 PERUL PERCENT CD8 (test code = 32969) 52.5 % ABSOLUTE CD8 (test code = 10341) 494 PERUL CD4/CD8 RATIO (test code = 61525) 0.31 Delfino Schumacher AustinCD4/CD8 LYMPHOCYTE [id number] 00:00:00* Test Item Value Reference Range Interpretation Comme nts ABSOLUTE LYMPHOCYTES (test c ode = 35791) 941 PERUL PERCENT CD4 (test code = 72774) 16.3 % ABSOLUTE CD4 (test code = 34516) 154 PERUL PERCENT CD8 (test code = 01438) 52.5 % ABSOLUTE CD8 (test code = 96373) 494 PERUL CD4/CD8 RATIO (test code = 58996) 0.31 Delfino Schumacher AustinCD4/CD8 LYMPHOCYTE [id number] 00:00:00* Test Item Value Reference Range Interpretation Comme nts ABSOLUTE LYMPHOCYTES (test c ode = 87937) 941 PERUL PERCENT CD4 (test code = 11214) 16.3 % ABSOLUTE CD4 (test code = 37355) 154 PERUL PERCENT CD8 (test code = 82195) 52.5 % ABSOLUTE CD8 (test code = 83394) 494 PERUL CD4/CD8 RATIO (test code = 21977) 0.31 Delfino Schumacher AustinCD4/CD8 LYMPHOCYTE [id number] 00:00:00* Test Item Value Reference Range Interpretation Comme nts ABSOLUTE LYMPHOCYTES (test c ode = 98621) 941 PERUL PERCENT CD4 (test code = 47461) 16.3 % ABSOLUTE CD4 (test code = 18465) 154 PERUL PERCENT CD8 (test code = 65111) 52.5 % ABSOLUTE CD8 (test code = 62524) 494 PERUL CD4/CD8 RATIO (test code = 99316) 0.31 Delfino Schumacher AustinCD4/CD8 LYMPHOCYTE [id number] 00:00:00* Test Item Value Reference Range Interpretation Comme nts ABSOLUTE LYMPHOCYTES (test c ode = 37493) 941 PERUL PERCENT CD4 (test code = 16026) 16.3 % ABSOLUTE CD4 (test code = 93965) 154 PERUL PERCENT CD8 (test code = 84564) 52.5 % ABSOLUTE CD8 (test code = 02600) 494 PERUL CD4/CD8 RATIO (test code = 55184) 0.31 Delfino Schumacher AustinCD4/CD8 LYMPHOCYTE [id number] 00:00:00* Test Item Value Reference Range Interpretation Comme nts ABSOLUTE LYMPHOCYTES (test c ode = 47824) 941 PERUL PERCENT CD4 (test code = 47084) 16.3 % ABSOLUTE CD4 (test code = 96000) 154 PERUL PERCENT CD8 (test code = 60641) 52.5 % ABSOLUTE CD8 (test code = 80575) 494 PERUL CD4/CD8 RATIO (test code = 21718) 0.31 Delfino Schumacher AustinCD4/CD8 LYMPHOCYTE [id number] 00:00:00* Test Item Value Reference Range Interpretation Comme nts ABSOLUTE LYMPHOCYTES (test c ode = 89996) 941 PERUL PERCENT CD4 (test code = 26732) 16.3 % ABSOLUTE CD4 (test code = 37221) 154 PERUL PERCENT CD8 (test code = 85167) 52.5 % ABSOLUTE CD8 (test code = 57520) 494 PERUL CD4/CD8 RATIO (test code = 57117) 0.31 Delfino Schumacher AustinCD4/CD8 LYMPHOCYTE [id number] 00:00:00* Test Item Value Reference Range Interpretation Comme nts ABSOLUTE LYMPHOCYTES (test c ode = 50320) 941 PERUL PERCENT CD4 (test code = 92490) 16.3 % ABSOLUTE CD4 (test code = 21660) 154 PERUL PERCENT CD8 (test code = 46558) 52.5 % ABSOLUTE CD8 (test code = 22974) 494 PERUL CD4/CD8 RATIO (test code = 93585) 0.31 Delfino Schumacher AustinCD4/CD8 LYMPHOCYTE [id number] 00:00:00* Test Item Value Reference Range Interpretation Comme nts ABSOLUTE LYMPHOCYTES (test c ode = 79511) 941 PERUL PERCENT CD4 (test code = 25692) 16.3 % ABSOLUTE CD4 (test code = 96596) 154 PERUL PERCENT CD8 (test code = 26408) 52.5 % ABSOLUTE CD8 (test code = 93272) 494 PERUL CD4/CD8 RATIO (test code = 02098) 0.31 Delfino Schumacher AustinCD4/CD8 LYMPHOCYTE [id number] 00:00:00* Test Item Value Reference Range Interpretation Comme nts ABSOLUTE LYMPHOCYTES (test c ode = 28938) 941 PERUL PERCENT CD4 (test code = 51798) 16.3 % ABSOLUTE CD4 (test code = 19128) 154 PERUL PERCENT CD8 (test code = 82040) 52.5 % ABSOLUTE CD8 (test code = 91513) 494 PERUL CD4/CD8 RATIO (test code = 43687) 0.31 Delfino Schumacher AustinCD4/CD8 LYMPHOCYTE [id number] 00:00:00* Test Item Value Reference Range Interpretation Comme nts ABSOLUTE LYMPHOCYTES (test c ode = 52905) 941 PERUL PERCENT CD4 (test code = 34040) 16.3 % ABSOLUTE CD4 (test code = 95872) 154 PERUL PERCENT CD8 (test code = 15221) 52.5 % ABSOLUTE CD8 (test code = 03320) 494 PERUL CD4/CD8 RATIO (test code = 78326) 0.31 Delfino Schumacher AustinCD4/CD8 LYMPHOCYTE [id number] 00:00:00* Test Item Value Reference Range Interpretation Comme nts ABSOLUTE LYMPHOCYTES (test c ode = 71675) 941 PERUL PERCENT CD4 (test code = 66192) 16.3 % ABSOLUTE CD4 (test code = 68028) 154 PERUL PERCENT CD8 (test code = 91441) 52.5 % ABSOLUTE CD8 (test code = 88757) 494 PERUL CD4/CD8 RATIO (test code = 70703) 0.31 Delfino Schumacher AustinCD4/CD8 LYMPHOCYTE [id number] 00:00:00* Test Item Value Reference Range Interpretation Comme nts ABSOLUTE LYMPHOCYTES (test c ode = 50153) 941 PERUL PERCENT CD4 (test code = 75289) 16.3 % ABSOLUTE CD4 (test code = 53463) 154 PERUL PERCENT CD8 (test code = 39315) 52.5 % ABSOLUTE CD8 (test code = 02262) 494 PERUL CD4/CD8 RATIO (test code = 98783) 0.31 Delfino Schumacher AustinCD4/CD8 LYMPHOCYTE [id number] 00:00:00* Test Item Value Reference Range Interpretation Comme nts ABSOLUTE LYMPHOCYTES (test c ode = 42170) 941 PERUL PERCENT CD4 (test code = 88767) 16.3 % ABSOLUTE CD4 (test code = 06894) 154 PERUL PERCENT CD8 (test code = 31604) 52.5 % ABSOLUTE CD8 (test code = 09598) 494 PERUL CD4/CD8 RATIO (test code = 84810) 0.31 Delfino Schumacher AustinCD4/CD8 LYMPHOCYTE [id number] 00:00:00* Test Item Value Reference Range Interpretation Comme nts ABSOLUTE LYMPHOCYTES (test c ode = 57831) 941 PERUL PERCENT CD4 (test code = 16840) 16.3 % ABSOLUTE CD4 (test code = 66614) 154 PERUL PERCENT CD8 (test code = 92194) 52.5 % ABSOLUTE CD8 (test code = 45480) 494 PERUL CD4/CD8 RATIO (test code = 06877) 0.31 Delfino Schumacher AustinCD4/CD8 LYMPHOCYTE [id number] 00:00:00* Test Item Value Reference Range Interpretation Comme nts ABSOLUTE LYMPHOCYTES (test c ode = 63293) 941 PERUL PERCENT CD4 (test code = 10468) 16.3 % ABSOLUTE CD4 (test code = 07442) 154 PERUL PERCENT CD8 (test code = 80016) 52.5 % ABSOLUTE CD8 (test code = 54519) 494 PERUL CD4/CD8 RATIO (test code = 88761) 0.31 Delfino Endy AustinCBC W/AUTO DIFF WITH [id number] 11:40:06* Test Item Value Reference Range Interpretation [...] 0.00-0.10 ABS NUCLEATED RBCS (test code = 55736) 0.00 K/UL 0.00-0.11 COMMENTS (test code = 1016) (NOTE) MODERATE MACROCY TOSIS SLIGHT TOXIC GRANULATION PLATELETS APPEAR NORMAL SEE ADDITIONAL COMMENTS BELOW: SLIGHT VACUOLIZATION OF NEUTROPHILS LIPID [id number] 05:24:56* Test Item Value Reference Range Interpretation [...] SPECIMENS. FOR MOREINFORMATION, SEE CLIENT ANNOUNCEMENT AT [email or web address] RISK RATIO LDL/HDL (test code = 2238) 0.91 RATIO <3.22 COMPREHENSIVE METABOLIC [id number] 05:24:56* Test Item Value Reference Range Interpretation Comme nts GLUCOSE (test code = 2217) 90 MG/DL 70-99 BUN (test code = 2208) 40 MG/DL 8-23 H CREATININE (test code = 2214) 2.05 MG/DL 0.60-1.30 H eGFR (2020 CKD-EPI) (test co de = 27135) 27 ML/MIN/1.73 >60 L CALC BUN/CREAT (test [...] code = 2219) 16 U/L 5-40 LIPID [id number] 00:00:00* Test Item Value Reference Range Interpretation Comme nts CHOLESTEROL (test code = 2210) 212 MG/DL TRIGLYCERIDES (test code = 2232) 80 MG/DL HDL CHOLESTEROL (test code = 2220) 102 MG/DL CALC LDL CHOL (test code = 2237) 93 MG/DL RISK RATIO LDL/HDL (test cod e = 2238) 0.91 RATIO Delfino Schumacher [facility] W/AUTO [id number] 00:00:00* Test Item Value Reference Range Interpretation [...] ABS NUCLEATED RBCS (test cod e = 46347) 0.00 K/UL COMMENTS (test code = 1016) (NOTE) Delfino OrtaCOMPREHENSIVE METABOLIC [id number] 00:00:00* Test Item Value Reference Range Interpretation Comme nts GLUCOSE (test code = 2217) 90 MG/DL BUN (test code = 2208) 40 MG/DL CREATININE (test code = 2214) 2.05 MG/DL eGFR (2020 CKD-EPI) (test co de = 51603) 27 ML/MIN/1.73 CALC BUN/CREAT (test code = [...] code = 2219) 16 U/L Delfino OrtaLIPID [id number] 00:00:00* Test Item Value Reference Range Interpretation Comme nts CHOLESTEROL (test code = 2210) 212 MG/DL TRIGLYCERIDES (test code = 2232) 80 MG/DL HDL CHOLESTEROL (test code = 2220) 102 MG/DL CALC LDL CHOL (test code = 2237) 93 MG/DL RISK RATIO LDL/HDL (test cod e = 2238) 0.91 RATIO Delfino OrtaCBC W/AUTO [id number] 00:00:00* Test Item Value Reference Range Interpretation [...] ABS NUCLEATED RBCS (test cod e = 22486) 0.00 K/UL COMMENTS (test code = 1016) (NOTE) Delfino OrtaCOMPREHENSIVE METABOLIC [id number] 00:00:00* Test Item Value Reference Range Interpretation Comme nts GLUCOSE (test code = 2217) 90 MG/DL BUN (test code = 2208) 40 MG/DL CREATININE (test code = 2214) 2.05 MG/DL eGFR (2020 CKD-EPI) (test co de = 70930) 27 ML/MIN/1.73 CALC BUN/CREAT (test code = [...] code = 2219) 16 U/L Delfino OrtaLIPID [id number] 00:00:00* Test Item Value Reference Range Interpretation Comme nts CHOLESTEROL (test code = 2210) 212 MG/DL TRIGLYCERIDES (test code = 2232) 80 MG/DL HDL CHOLESTEROL (test code = 2220) 102 MG/DL CALC LDL CHOL (test code = 2237) 93 MG/DL RISK RATIO LDL/HDL (test cod e = 2238) 0.91 RATIO Delfino OrtaCBC W/AUTO [id number] 00:00:00* Test Item Value Reference Range Interpretation [...] ABS NUCLEATED RBCS (test cod e = 03027) 0.00 K/UL COMMENTS (test code = 1016) (NOTE) Delfino OrtaCOMPREHENSIVE METABOLIC [id number] 00:00:00* Test Item Value Reference Range Interpretation Comme nts GLUCOSE (test code = 2217) 90 MG/DL BUN (test code = 2208) 40 MG/DL CREATININE (test code = 2214) 2.05 MG/DL eGFR (2020 CKD-EPI) (test co de = 86327) 27 ML/MIN/1.73 CALC BUN/CREAT (test code = [...] code = 2219) 16 U/L Delfino OrtaLIPID [id number] 00:00:00* Test Item Value Reference Range Interpretation Comme nts CHOLESTEROL (test code = 2210) 212 MG/DL TRIGLYCERIDES (test code = 2232) 80 MG/DL HDL CHOLESTEROL (test code = 2220) 102 MG/DL CALC LDL CHOL (test code = 2237) 93 MG/DL RISK RATIO LDL/HDL (test cod e = 2238) 0.91 RATIO Delfino OrtaCBC W/AUTO [id number] 00:00:00* Test Item Value Reference Range Interpretation [...] ABS NUCLEATED RBCS (test cod e = 30415) 0.00 K/UL COMMENTS (test code = 1016) (NOTE) Delfino OrtaCOMPREHENSIVE METABOLIC [id number] 00:00:00* Test Item Value Reference Range Interpretation Comme nts GLUCOSE (test code = 2217) 90 MG/DL BUN (test code = 2208) 40 MG/DL CREATININE (test code = 2214) 2.05 MG/DL eGFR (2020 CKD-EPI) (test co de = 54956) 27 ML/MIN/1.73 CALC BUN/CREAT (test code = [...] code = 2219) 16 U/L Delfino OrtaLIPID [id number] 00:00:00* Test Item Value Reference Range Interpretation Comme nts CHOLESTEROL (test code = 2210) 212 MG/DL TRIGLYCERIDES (test code = 2232) 80 MG/DL HDL CHOLESTEROL (test code = 2220) 102 MG/DL CALC LDL CHOL (test code = 2237) 93 MG/DL RISK RATIO LDL/HDL (test cod e = 2238) 0.91 RATIO Delfino OrtaCBC W/AUTO [id number] 00:00:00* Test Item Value Reference Range Interpretation [...] ABS NUCLEATED RBCS (test cod e = 83735) 0.00 K/UL COMMENTS (test code = 1016) (NOTE) Delfino OrtaCOMPREHENSIVE METABOLIC [id number] 00:00:00* Test Item Value Reference Range Interpretation Comme nts GLUCOSE (test code = 2217) 90 MG/DL BUN (test code = 2208) 40 MG/DL CREATININE (test code = 2214) 2.05 MG/DL eGFR (2020 CKD-EPI) (test co de = 00443) 27 ML/MIN/1.73 CALC BUN/CREAT (test code = [...] code = 2219) 16 U/L Delfino OrtaLIPID [id number] 00:00:00* Test Item Value Reference Range Interpretation Comme nts CHOLESTEROL (test code = 2210) 212 MG/DL TRIGLYCERIDES (test code = 2232) 80 MG/DL HDL CHOLESTEROL (test code = 2220) 102 MG/DL CALC LDL CHOL (test code = 2237) 93 MG/DL RISK RATIO LDL/HDL (test cod e = 2238) 0.91 RATIO Delfino Schumacher YouCBC W/AUTO [id number] 00:00:00* Test Item Value Reference Range Interpretation [...] ABS NUCLEATED RBCS (test cod e = 55654) 0.00 K/UL COMMENTS (test code = 1016) (NOTE) Delfino OrtaCOMPREHENSIVE METABOLIC [id number] 00:00:00* Test Item Value Reference Range Interpretation Comme nts GLUCOSE (test code = 2217) 90 MG/DL BUN (test code = 2208) 40 MG/DL CREATININE (test code = 2214) 2.05 MG/DL eGFR (2020 CKD-EPI) (test co de = 15264) 27 ML/MIN/1.73 CALC BUN/CREAT (test code = [...] code = 2219) 16 U/L Delfino OrtaLIPID [id number] 00:00:00* Test Item Value Reference Range Interpretation Comme nts CHOLESTEROL (test code = 2210) 212 MG/DL TRIGLYCERIDES (test code = 2232) 80 MG/DL HDL CHOLESTEROL (test code = 2220) 102 MG/DL CALC LDL CHOL (test code = 2237) 93 MG/DL RISK RATIO LDL/HDL (test cod e = 2238) 0.91 RATIO Delfino OrtaCBC W/AUTO [id number] 00:00:00* Test Item Value Reference Range Interpretation [...] ABS NUCLEATED RBCS (test cod e = 25511) 0.00 K/UL COMMENTS (test code = 1016) (NOTE) Delfino OrtaCOMPREHENSIVE METABOLIC [id number] 00:00:00* Test Item Value Reference Range Interpretation Comme nts GLUCOSE (test code = 2217) 90 MG/DL BUN (test code = 2208) 40 MG/DL CREATININE (test code = 2214) 2.05 MG/DL eGFR (2020 CKD-EPI) (test co de = 02400) 27 ML/MIN/1.73 CALC BUN/CREAT (test code = [...] code = 2219) 16 U/L Delfino OrtaLIPID [id number] 00:00:00* Test Item Value Reference Range Interpretation Comme nts CHOLESTEROL (test code = 2210) 212 MG/DL TRIGLYCERIDES (test code = 2232) 80 MG/DL HDL CHOLESTEROL (test code = 2220) 102 MG/DL CALC LDL CHOL (test code = 2237) 93 MG/DL RISK RATIO LDL/HDL (test cod e = 2238) 0.91 RATIO Delfino OrtaCBC W/AUTO [id number] 00:00:00* Test Item Value Reference Range Interpretation [...] ABS NUCLEATED RBCS (test cod e = 32809) 0.00 K/UL COMMENTS (test code = 1016) (NOTE) Delfino OratCOMPREHENSIVE METABOLIC [id number] 00:00:00* Test Item Value Reference Range Interpretation Comme nts GLUCOSE (test code = 2217) 90 MG/DL BUN (test code = 2208) 40 MG/DL CREATININE (test code = 2214) 2.05 MG/DL eGFR (2020 CKD-EPI) (test co de = 05965) 27 ML/MIN/1.73 CALC BUN/CREAT (test code = [...] code = 2219) 16 U/L Delfino OrtaLIPID [id number] 00:00:00* Test Item Value Reference Range Interpretation Comme nts CHOLESTEROL (test code = 2210) 212 MG/DL TRIGLYCERIDES (test code = 2232) 80 MG/DL HDL CHOLESTEROL (test code = 2220) 102 MG/DL CALC LDL CHOL (test code = 2237) 93 MG/DL RISK RATIO LDL/HDL (test cod e = 2238) 0.91 RATIO Delfino OrtaCBC W/AUTO [id number] 00:00:00* Test Item Value Reference Range Interpretation [...] ABS NUCLEATED RBCS (test cod e = 71214) 0.00 K/UL COMMENTS (test code = 1016) (NOTE) Delfino OrtaCOMPREHENSIVE METABOLIC [id number] 00:00:00* Test Item Value Reference Range Interpretation Comme nts GLUCOSE (test code = 2217) 90 MG/DL BUN (test code = 2208) 40 MG/DL CREATININE (test code = 2214) 2.05 MG/DL eGFR (2020 CKD-EPI) (test co de = 75421) 27 ML/MIN/1.73 CALC BUN/CREAT (test code = [...] code = 2219) 16 U/L Delfino OrtaLIPID [id number] 00:00:00* Test Item Value Reference Range Interpretation Comme nts CHOLESTEROL (test code = 2210) 212 MG/DL TRIGLYCERIDES (test code = 2232) 80 MG/DL HDL CHOLESTEROL (test code = 2220) 102 MG/DL CALC LDL CHOL (test code = 2237) 93 MG/DL RISK RATIO LDL/HDL (test cod e = 2238) 0.91 RATIO Delfino OrtaCBC W/AUTO [id number] 00:00:00* Test Item Value Reference Range Interpretation [...] ABS NUCLEATED RBCS (test cod e = 78675) 0.00 K/UL COMMENTS (test code = 1016) (NOTE) Delfino OrtaCOMPREHENSIVE METABOLIC [id number] 00:00:00* Test Item Value Reference Range Interpretation Comme nts GLUCOSE (test code = 2217) 90 MG/DL BUN (test code = 2208) 40 MG/DL CREATININE (test code = 2214) 2.05 MG/DL eGFR (2020 CKD-EPI) (test co de = 26408) 27 ML/MIN/1.73 CALC BUN/CREAT (test code = [...] code = 2219) 16 U/L Delfino OrtaLIPID [id number] 00:00:00* Test Item Value Reference Range Interpretation Comme nts CHOLESTEROL (test code = 2210) 212 MG/DL TRIGLYCERIDES (test code = 2232) 80 MG/DL HDL CHOLESTEROL (test code = 2220) 102 MG/DL CALC LDL CHOL (test code = 2237) 93 MG/DL RISK RATIO LDL/HDL (test cod e = 2238) 0.91 RATIO Delfino OrtaCBC W/AUTO [id number] 00:00:00* Test Item Value Reference Range Interpretation [...] ABS NUCLEATED RBCS (test cod e = 85730) 0.00 K/UL COMMENTS (test code = 1016) (NOTE) Delfino OrtaCOMPREHENSIVE METABOLIC [id number] 00:00:00* Test Item Value Reference Range Interpretation Comme nts GLUCOSE (test code = 2217) 90 MG/DL BUN (test code = 2208) 40 MG/DL CREATININE (test code = 2214) 2.05 MG/DL eGFR (2020 CKD-EPI) (test co de = 80147) 27 ML/MIN/1.73 CALC BUN/CREAT (test code = [...] code = 2219) 16 U/L Delfino OrtaLIPID [id number] 00:00:00* Test Item Value Reference Range Interpretation Comme nts CHOLESTEROL (test code = 2210) 212 MG/DL TRIGLYCERIDES (test code = 2232) 80 MG/DL HDL CHOLESTEROL (test code = 2220) 102 MG/DL CALC LDL CHOL (test code = 2237) 93 MG/DL RISK RATIO LDL/HDL (test cod e = 2238) 0.91 RATIO Delfino OrtaCBC W/AUTO [id number] 00:00:00* Test Item Value Reference Range Interpretation [...] ABS NUCLEATED RBCS (test cod e = 55090) 0.00 K/UL COMMENTS (test code = 1016) (NOTE) Delfino OrtaCOMPREHENSIVE METABOLIC [id number] 00:00:00* Test Item Value Reference Range Interpretation Comme nts GLUCOSE (test code = 2217) 90 MG/DL BUN (test code = 2208) 40 MG/DL CREATININE (test code = 2214) 2.05 MG/DL eGFR (2020 CKD-EPI) (test co de = 27334) 27 ML/MIN/1.73 CALC BUN/CREAT (test code = [...] code = 2219) 16 U/L Delfino OrtaLIPID [id number] 00:00:00* Test Item Value Reference Range Interpretation Comme nts CHOLESTEROL (test code = 2210) 212 MG/DL TRIGLYCERIDES (test code = 2232) 80 MG/DL HDL CHOLESTEROL (test code = 2220) 102 MG/DL CALC LDL CHOL (test code = 2237) 93 MG/DL RISK RATIO LDL/HDL (test cod e = 2238) 0.91 RATIO Delfino OrtaCBC W/AUTO [id number] 00:00:00* Test Item Value Reference Range Interpretation [...] ABS NUCLEATED RBCS (test cod e = 19720) 0.00 K/UL COMMENTS (test code = 1016) (NOTE) Delfino OrtaCOMPREHENSIVE METABOLIC [id number] 00:00:00* Test Item Value Reference Range Interpretation Comme nts GLUCOSE (test code = 2217) 90 MG/DL BUN (test code = 2208) 40 MG/DL CREATININE (test code = 2214) 2.05 MG/DL eGFR (2020 CKD-EPI) (test co de = 15716) 27 ML/MIN/1.73 CALC BUN/CREAT (test code = [...] code = 2219) 16 U/L Delfino OrtaLIPID [id number] 00:00:00* Test Item Value Reference Range Interpretation Comme nts CHOLESTEROL (test code = 2210) 212 MG/DL TRIGLYCERIDES (test code = 2232) 80 MG/DL HDL CHOLESTEROL (test code = 2220) 102 MG/DL CALC LDL CHOL (test code = 2237) 93 MG/DL RISK RATIO LDL/HDL (test cod e = 2238) 0.91 RATIO Delfino OrtaCBC W/AUTO [id number] 00:00:00* Test Item Value Reference Range Interpretation [...] ABS NUCLEATED RBCS (test cod e = 58669) 0.00 K/UL COMMENTS (test code = 1016) (NOTE) Delfino OrtaCOMPREHENSIVE METABOLIC [id number] 00:00:00* Test Item Value Reference Range Interpretation Comme nts GLUCOSE (test code = 2217) 90 MG/DL BUN (test code = 2208) 40 MG/DL CREATININE (test code = 2214) 2.05 MG/DL eGFR (2020 CKD-EPI) (test co de = 45902) 27 ML/MIN/1.73 CALC BUN/CREAT (test code = [...] code = 2219) 16 U/L Delfino OrtaLIPID [id number] 00:00:00* Test Item Value Reference Range Interpretation Comme nts CHOLESTEROL (test code = 2210) 212 MG/DL TRIGLYCERIDES (test code = 2232) 80 MG/DL HDL CHOLESTEROL (test code = 2220) 102 MG/DL CALC LDL CHOL (test code = 2237) 93 MG/DL RISK RATIO LDL/HDL (test cod e = 2238) 0.91 RATIO Delfino OrtaCBC W/AUTO [id number] 00:00:00* Test Item Value Reference Range Interpretation [...] ABS NUCLEATED RBCS (test cod e = 91311) 0.00 K/UL COMMENTS (test code = 1016) (NOTE) Delfino OrtaCOMPREHENSIVE METABOLIC [id number] 00:00:00* Test Item Value Reference Range Interpretation Comme nts GLUCOSE (test code = 2217) 90 MG/DL BUN (test code = 2208) 40 MG/DL CREATININE (test code = 2214) 2.05 MG/DL eGFR (2020 CKD-EPI) (test co de = 98680) 27 ML/MIN/1.73 CALC BUN/CREAT (test code = [...] code = 2219) 16 U/L Delfino OrtaLIPID [id number] 00:00:00* Test Item Value Reference Range Interpretation Comme nts CHOLESTEROL (test code = 2210) 212 MG/DL TRIGLYCERIDES (test code = 2232) 80 MG/DL HDL CHOLESTEROL (test code = 2220) 102 MG/DL CALC LDL CHOL (test code = 2237) 93 MG/DL RISK RATIO LDL/HDL (test cod e = 2238) 0.91 RATIO Delfino OrtaCBC W/AUTO [id number] 00:00:00* Test Item Value Reference Range Interpretation [...] ABS NUCLEATED RBCS (test cod e = 99850) 0.00 K/UL COMMENTS (test code = 1016) (NOTE) Delfino OrtaCOMPREHENSIVE METABOLIC [id number] 00:00:00* Test Item Value Reference Range Interpretation Comme nts GLUCOSE (test code = 2217) 90 MG/DL BUN (test code = 2208) 40 MG/DL CREATININE (test code = 2214) 2.05 MG/DL eGFR (2020 CKD-EPI) (test co de = 21220) 27 ML/MIN/1.73 CALC BUN/CREAT (test code = [...] code = 2219) 16 U/L Delfino OrtaLIPID [id number] 00:00:00* Test Item Value Reference Range Interpretation Comme nts CHOLESTEROL (test code = 2210) 212 MG/DL TRIGLYCERIDES (test code = 2232) 80 MG/DL HDL CHOLESTEROL (test code = 2220) 102 MG/DL CALC LDL CHOL (test code = 2237) 93 MG/DL RISK RATIO LDL/HDL (test cod e = 2238) 0.91 RATIO Delfino OrtaCBC W/AUTO [id number] 00:00:00* Test Item Value Reference Range Interpretation [...] ABS NUCLEATED RBCS (test cod e = 65488) 0.00 K/UL COMMENTS (test code = 1016) (NOTE) Delfino OrtaCOMPREHENSIVE METABOLIC [id number] 00:00:00* Test Item Value Reference Range Interpretation Comme nts GLUCOSE (test code = 2217) 90 MG/DL BUN (test code = 2208) 40 MG/DL CREATININE (test code = 2214) 2.05 MG/DL eGFR (2020 CKD-EPI) (test co de = 04244) 27 ML/MIN/1.73 CALC BUN/CREAT (test code = [...] code = 2219) 16 U/L Delfino OrtaLIPID [id number] 00:00:00* Test Item Value Reference Range Interpretation Comme nts CHOLESTEROL (test code = 2210) 212 MG/DL TRIGLYCERIDES (test code = 2232) 80 MG/DL HDL CHOLESTEROL (test code = 2220) 102 MG/DL CALC LDL CHOL (test code = 2237) 93 MG/DL RISK RATIO LDL/HDL (test cod e = 2238) 0.91 RATIO Delfino OrtaCBC W/AUTO [id number] 00:00:00* Test Item Value Reference Range Interpretation [...] ABS NUCLEATED RBCS (test cod e = 00270) 0.00 K/UL COMMENTS (test code = 1016) (NOTE) Delfino OrtaCOMPREHENSIVE METABOLIC [id number] 00:00:00* Test Item Value Reference Range Interpretation Comme nts GLUCOSE (test code = 2217) 90 MG/DL BUN (test code = 2208) 40 MG/DL CREATININE (test code = 2214) 2.05 MG/DL eGFR (2020 CKD-EPI) (test co de = 22976) 27 ML/MIN/1.73 CALC BUN/CREAT (test code = [...] code = 2219) 16 U/L Delfino OrtaLIPID [id number] 00:00:00* Test Item Value Reference Range Interpretation Comme nts CHOLESTEROL (test code = 2210) 212 MG/DL TRIGLYCERIDES (test code = 2232) 80 MG/DL HDL CHOLESTEROL (test code = 2220) 102 MG/DL CALC LDL CHOL (test code = 2237) 93 MG/DL RISK RATIO LDL/HDL (test cod e = 2238) 0.91 RATIO Delfino OrtaCBC W/AUTO [id number] 00:00:00* Test Item Value Reference Range Interpretation [...] ABS NUCLEATED RBCS (test cod e = 27045) 0.00 K/UL COMMENTS (test code = 1016) (NOTE) Delfino OrtaCOMPREHENSIVE METABOLIC [id number] 00:00:00* Test Item Value Reference Range Interpretation Comme nts GLUCOSE (test code = 2217) 90 MG/DL BUN (test code = 2208) 40 MG/DL CREATININE (test code = 2214) 2.05 MG/DL eGFR (2020 CKD-EPI) (test co de = 12608) 27 ML/MIN/1.73 CALC BUN/CREAT (test code = [...] code = 2219) 16 U/L Delfino OrtaLIPID [id number] 00:00:00* Test Item Value Reference Range Interpretation Comme nts CHOLESTEROL (test code = 2210) 212 MG/DL TRIGLYCERIDES (test code = 2232) 80 MG/DL HDL CHOLESTEROL (test code = 2220) 102 MG/DL CALC LDL CHOL (test code = 2237) 93 MG/DL RISK RATIO LDL/HDL (test cod e = 2238) 0.91 RATIO Delfino OrtaCBC W/AUTO [id number] 00:00:00* Test Item Value Reference Range Interpretation [...] ABS NUCLEATED RBCS (test cod e = 40616) 0.00 K/UL COMMENTS (test code = 1016) (NOTE) Delfino OrtaCOMPREHENSIVE METABOLIC [id number] 00:00:00* Test Item Value Reference Range Interpretation Comme nts GLUCOSE (test code = 2217) 90 MG/DL BUN (test code = 2208) 40 MG/DL CREATININE (test code = 2214) 2.05 MG/DL eGFR (2020 CKD-EPI) (test co de = 50752) 27 ML/MIN/1.73 CALC BUN/CREAT (test code = [...] code = 2219) 16 U/L Delfino OrtaLIPID [id number] 00:00:00* Test Item Value Reference Range Interpretation Comme nts CHOLESTEROL (test code = 2210) 212 MG/DL TRIGLYCERIDES (test code = 2232) 80 MG/DL HDL CHOLESTEROL (test code = 2220) 102 MG/DL CALC LDL CHOL (test code = 2237) 93 MG/DL RISK RATIO LDL/HDL (test cod e = 2238) 0.91 RATIO Delfino OrtaCBC W/AUTO [id number] 00:00:00* Test Item Value Reference Range Interpretation [...] ABS NUCLEATED RBCS (test cod e = 21581) 0.00 K/UL COMMENTS (test code = 1016) (NOTE) Delfino OrtaCOMPREHENSIVE METABOLIC [id number] 00:00:00* Test Item Value Reference Range Interpretation Comme nts GLUCOSE (test code = 2217) 90 MG/DL BUN (test code = 2208) 40 MG/DL CREATININE (test code = 2214) 2.05 MG/DL eGFR (2020 CKD-EPI) (test co de = 93607) 27 ML/MIN/1.73 CALC BUN/CREAT (test code = [...] code = 2219) 16 U/L Delfino OrtaLIPID [id number] 00:00:00* Test Item Value Reference Range Interpretation Comme nts CHOLESTEROL (test code = 2210) 212 MG/DL TRIGLYCERIDES (test code = 2232) 80 MG/DL HDL CHOLESTEROL (test code = 2220) 102 MG/DL CALC LDL CHOL (test code = 2237) 93 MG/DL RISK RATIO LDL/HDL (test cod e = 2238) 0.91 RATIO Delfino OrtaCBC W/AUTO [id number] 00:00:00* Test Item Value Reference Range Interpretation [...] ABS NUCLEATED RBCS (test cod e = 69594) 0.00 K/UL COMMENTS (test code = 1016) (NOTE) Delfino OrtaCOMPREHENSIVE METABOLIC [id number] 00:00:00* Test Item Value Reference Range Interpretation Comme nts GLUCOSE (test code = 2217) 90 MG/DL BUN (test code = 2208) 40 MG/DL CREATININE (test code = 2214) 2.05 MG/DL eGFR (2020 CKD-EPI) (test co de = 97138) 27 ML/MIN/1.73 CALC BUN/CREAT (test code = [...] code = 2219) 16 U/L Delfino OrtaLIPID [id number] 00:00:00* Test Item Value Reference Range Interpretation Comme nts CHOLESTEROL (test code = 2210) 212 MG/DL TRIGLYCERIDES (test code = 2232) 80 MG/DL HDL CHOLESTEROL (test code = 2220) 102 MG/DL CALC LDL CHOL (test code = 2237) 93 MG/DL RISK RATIO LDL/HDL (test cod e = 2238) 0.91 RATIO Delfino OrtaCBC W/AUTO [id number] 00:00:00* Test Item Value Reference Range Interpretation [...] ABS NUCLEATED RBCS (test cod e = 79454) 0.00 K/UL COMMENTS (test code = 1016) (NOTE) Delfino OrtaCOMPREHENSIVE METABOLIC [id number] 00:00:00* Test Item Value Reference Range Interpretation Comme nts GLUCOSE (test code = 2217) 90 MG/DL BUN (test code = 2208) 40 MG/DL CREATININE (test code = 2214) 2.05 MG/DL eGFR (2020 CKD-EPI) (test co de = 45151) 27 ML/MIN/1.73 CALC BUN/CREAT (test code = [...] = 2219) 16 U/L Delfino Schumacher YouLIPID [id number] 00:00:00* Test Item Value Reference Range Interpretation Comme nts CHOLESTEROL (test code = 2210) 212 MG/DL TRIGLYCERIDES (test code = 2232) 80 MG/DL HDL CHOLESTEROL (test code = 2220) 102 MG/DL CALC LDL CHOL (test code = 2237) 93 MG/DL RISK RATIO LDL/HDL (test cod e = 2238) 0.91 RATIO Delfino Schumacher YouCBC W/AUTO [id number] 00:00:00* Test Item Value Reference Range Interpretation [...] ABS NUCLEATED RBCS (test cod e = 18621) 0.00 K/UL COMMENTS (test code = 1016) (NOTE) Delfino OtraCOMPREHENSIVE METABOLIC [id number] 00:00:00* Test Item Value Reference Range Interpretation Comme nts GLUCOSE (test code = 2217) 90 MG/DL BUN (test code = 2208) 40 MG/DL CREATININE (test code = 2214) 2.05 MG/DL eGFR (2020 CKD-EPI) (test co de = 04202) 27 ML/MIN/1.73 CALC BUN/CREAT (test code = [...] code = 2219) 16 U/L Delfino OrtaLIPID [id number] 00:00:00* Test Item Value Reference Range Interpretation Comme nts CHOLESTEROL (test code = 2210) 212 MG/DL TRIGLYCERIDES (test code = 2232) 80 MG/DL HDL CHOLESTEROL (test code = 2220) 102 MG/DL CALC LDL CHOL (test code = 2237) 93 MG/DL RISK RATIO LDL/HDL (test cod e = 2238) 0.91 RATIO Delfino OrtaCBC W/AUTO [id number] 00:00:00* Test Item Value Reference Range Interpretation [...] ABS NUCLEATED RBCS (test cod e = 65426) 0.00 K/UL COMMENTS (test code = 1016) (NOTE) Delfino OrtaCOMPREHENSIVE METABOLIC [id number] 00:00:00* Test Item Value Reference Range Interpretation Comme nts GLUCOSE (test code = 2217) 90 MG/DL BUN (test code = 2208) 40 MG/DL CREATININE (test code = 2214) 2.05 MG/DL eGFR (2020 CKD-EPI) (test co de = 10001) 27 ML/MIN/1.73 CALC BUN/CREAT (test code = [...] code = 2219) 16 U/L Delfino OrtaLIPID [id number] 00:00:00* Test Item Value Reference Range Interpretation Comme nts CHOLESTEROL (test code = 2210) 212 MG/DL TRIGLYCERIDES (test code = 2232) 80 MG/DL HDL CHOLESTEROL (test code = 2220) 102 MG/DL CALC LDL CHOL (test code = 2237) 93 MG/DL RISK RATIO LDL/HDL (test cod e = 2238) 0.91 RATIO Delfino Endy YouCBC W/AUTO [id number] 00:00:00* Test Item Value Reference Range Interpretation [...] ABS NUCLEATED RBCS (test cod e = 48724) 0.00 K/UL COMMENTS (test code = 1016) (NOTE) Delfino OrtaCOMPREHENSIVE METABOLIC [id number] 00:00:00* Test Item Value Reference Range Interpretation Comme nts GLUCOSE (test code = 2217) 90 MG/DL BUN (test code = 2208) 40 MG/DL CREATININE (test code = 2214) 2.05 MG/DL eGFR (2020 CKD-EPI) (test co de = 17306) 27 ML/MIN/1.73 CALC BUN/CREAT (test code = [...] code = 2219) 16 U/L Delfino OrtaLIPID [id number] 00:00:00* Test Item Value Reference Range Interpretation Comme nts CHOLESTEROL (test code = 2210) 212 MG/DL TRIGLYCERIDES (test code = 2232) 80 MG/DL HDL CHOLESTEROL (test code = 2220) 102 MG/DL CALC LDL CHOL (test code = 2237) 93 MG/DL RISK RATIO LDL/HDL (test cod e = 2238) 0.91 RATIO Delfino OrtaCBC W/AUTO [id number] 00:00:00* Test Item Value Reference Range Interpretation [...] ABS NUCLEATED RBCS (test cod e = 33411) 0.00 K/UL COMMENTS (test code = 1016) (NOTE) Delfino OrtaCOMPREHENSIVE METABOLIC [id number] 00:00:00* Test Item Value Reference Range Interpretation Comme nts GLUCOSE (test code = 2217) 90 MG/DL BUN (test code = 2208) 40 MG/DL CREATININE (test code = 2214) 2.05 MG/DL eGFR (2020 CKD-EPI) (test co de = 73061) 27 ML/MIN/1.73 CALC BUN/CREAT (test code = [...] code = 2219) 16 U/L Delfino OrtaLIPID [id number] 00:00:00* Test Item Value Reference Range Interpretation Comme nts CHOLESTEROL (test code = 2210) 212 MG/DL TRIGLYCERIDES (test code = 2232) 80 MG/DL HDL CHOLESTEROL (test code = 2220) 102 MG/DL CALC LDL CHOL (test code = 2237) 93 MG/DL RISK RATIO LDL/HDL (test cod e = 2238) 0.91 RATIO Delfino OrtaCBC W/AUTO [id number] 00:00:00* Test Item Value Reference Range Interpretation [...] ABS NUCLEATED RBCS (test cod e = 68915) 0.00 K/UL COMMENTS (test code = 1016) (NOTE) Delfino OrtaCOMPREHENSIVE METABOLIC [id number] 00:00:00* Test Item Value Reference Range Interpretation Comme nts GLUCOSE (test code = 2217) 90 MG/DL BUN (test code = 2208) 40 MG/DL CREATININE (test code = 2214) 2.05 MG/DL eGFR (2020 CKD-EPI) (test co de = 77931) 27 ML/MIN/1.73 CALC BUN/CREAT (test code = [...] code = 2219) 16 U/L Delfino OrtaLIPID [id number] 00:00:00* Test Item Value Reference Range Interpretation Comme nts CHOLESTEROL (test code = 2210) 212 MG/DL TRIGLYCERIDES (test code = 2232) 80 MG/DL HDL CHOLESTEROL (test code = 2220) 102 MG/DL CALC LDL CHOL (test code = 2237) 93 MG/DL RISK RATIO LDL/HDL (test cod e = 2238) 0.91 RATIO Delfino OrtaCBC W/AUTO [id number] 00:00:00* Test Item Value Reference Range Interpretation [...] ABS NUCLEATED RBCS (test cod e = 37876) 0.00 K/UL COMMENTS (test code = 1016) (NOTE) Delfino OrtaCOMPREHENSIVE METABOLIC [id number] 00:00:00* Test Item Value Reference Range Interpretation Comme nts GLUCOSE (test code = 2217) 90 MG/DL BUN (test code = 2208) 40 MG/DL CREATININE (test code = 2214) 2.05 MG/DL eGFR (2020 CKD-EPI) (test co de = 81248) 27 ML/MIN/1.73 CALC BUN/CREAT (test code = [...] code = 2219) 16 U/L Delfino OrtaLIPID [id number] 00:00:00* Test Item Value Reference Range Interpretation Comme nts CHOLESTEROL (test code = 2210) 212 MG/DL TRIGLYCERIDES (test code = 2232) 80 MG/DL HDL CHOLESTEROL (test code = 2220) 102 MG/DL CALC LDL CHOL (test code = 2237) 93 MG/DL RISK RATIO LDL/HDL (test cod e = 2238) 0.91 RATIO Delfino OrtaCBC W/AUTO [id number] 00:00:00* Test Item Value Reference Range Interpretation [...] ABS NUCLEATED RBCS (test cod e = 31775) 0.00 K/UL COMMENTS (test code = 1016) (NOTE) Delfino OrtaCOMPREHENSIVE METABOLIC [id number] 00:00:00* Test Item Value Reference Range Interpretation Comme nts GLUCOSE (test code = 2217) 90 MG/DL BUN (test code = 2208) 40 MG/DL CREATININE (test code = 2214) 2.05 MG/DL eGFR (2020 CKD-EPI) (test co de = 11098) 27 ML/MIN/1.73 CALC BUN/CREAT (test code = [...] code = 2219) 16 U/L Delfino OrtaLIPID [id number] 00:00:00* Test Item Value Reference Range Interpretation Comme nts CHOLESTEROL (test code = 2210) 212 MG/DL TRIGLYCERIDES (test code = 2232) 80 MG/DL HDL CHOLESTEROL (test code = 2220) 102 MG/DL CALC LDL CHOL (test code = 2237) 93 MG/DL RISK RATIO LDL/HDL (test cod e = 2238) 0.91 RATIO Delfino OrtaCBC W/AUTO [id number] 00:00:00* Test Item Value Reference Range Interpretation [...] ABS NUCLEATED RBCS (test cod e = 46496) 0.00 K/UL COMMENTS (test code = 1016) (NOTE) Delfino OrtaCOMPREHENSIVE METABOLIC [id number] 00:00:00* Test Item Value Reference Range Interpretation Comme nts GLUCOSE (test code = 2217) 90 MG/DL BUN (test code = 2208) 40 MG/DL CREATININE (test code = 2214) 2.05 MG/DL eGFR (2020 CKD-EPI) (test co de = 76213) 27 ML/MIN/1.73 CALC BUN/CREAT (test code = [...] code = 2219) 16 U/L Delfino OrtaLIPID [id number] 00:00:00* Test Item Value Reference Range Interpretation Comme nts CHOLESTEROL (test code = 2210) 212 MG/DL TRIGLYCERIDES (test code = 2232) 80 MG/DL HDL CHOLESTEROL (test code = 2220) 102 MG/DL CALC LDL CHOL (test code = 2237) 93 MG/DL RISK RATIO LDL/HDL (test cod e = 2238) 0.91 RATIO Delfino OrtaCBC W/AUTO [id number] 00:00:00* Test Item Value Reference Range Interpretation [...] ABS NUCLEATED RBCS (test cod e = 87572) 0.00 K/UL COMMENTS (test code = 1016) (NOTE) Delfino OrtaCOMPREHENSIVE METABOLIC [id number] 00:00:00* Test Item Value Reference Range Interpretation Comme nts GLUCOSE (test code = 2217) 90 MG/DL BUN (test code = 2208) 40 MG/DL CREATININE (test code = 2214) 2.05 MG/DL eGFR (2020 CKD-EPI) (test co de = 64415) 27 ML/MIN/1.73 CALC BUN/CREAT (test code = [...] code = 2219) 16 U/L Delfino OrtaLIPID [id number] 00:00:00* Test Item Value Reference Range Interpretation Comme nts CHOLESTEROL (test code = 2210) 212 MG/DL TRIGLYCERIDES (test code = 2232) 80 MG/DL HDL CHOLESTEROL (test code = 2220) 102 MG/DL CALC LDL CHOL (test code = 2237) 93 MG/DL RISK RATIO LDL/HDL (test cod e = 2238) 0.91 RATIO Delfino OrtaCBC W/AUTO [id number] 00:00:00* Test Item Value Reference Range Interpretation [...] ABS NUCLEATED RBCS (test cod e = 68485) 0.00 K/UL COMMENTS (test code = 1016) (NOTE) Delfino OrtaCOMPREHENSIVE METABOLIC [id number] 00:00:00* Test Item Value Reference Range Interpretation Comme nts GLUCOSE (test code = 2217) 90 MG/DL BUN (test code = 2208) 40 MG/DL CREATININE (test code = 2214) 2.05 MG/DL eGFR (2020 CKD-EPI) (test co de = 59859) 27 ML/MIN/1.73 CALC BUN/CREAT (test code = [...] code = 2219) 16 U/L Delfino Schumacher [facility] with [id number] 19:43:14* Test Item Value Reference Range Interpretation Comme [facility] WBC (test code = 6690-2) 7.67 4.30-11.10 RBC (test code = 789-8) 3.40 3.93-5.25 L HGB (test code = 718-7) 12.5 g/dL 11.6-15.0 HCT (test code = 4544-3) 37.2 % 35.7-45.2 MCV (test code = 787-2) 109.4 fL 80.6-95.5 H MCH (test code = 785-6) 36.8 pg 25.9-32.8 H MCHC (test code = 786-4) 33.6 g/dL 31.6-35.1 RDW-SD (test code = 22225-3) 54.3 fL 39.0-49.9 H RDW-CV (test code = 788-0) 13.4 % 12.0-15.5 PLT (test code = 777-3) 133 166-358 L MPV (test code = 78818-1) 11.5 fL 9.5-12.9 IPF % (test code = 8016255139) 5.6 % 1.3-7.7 Platelet count measured by fluorescence method. NRBC/100 WBC (test code = 9594408464) 0.0 0.0-10.0 NRBC x10^3 (test code = 0410487838) See_Comment [Automated messa ge] The system which generated this result transmitted reference range: 10*3/?L. The reference range was not used to interpret this result as normal/abnormal. GRAN MAT (NEUT) % (test code = 770-8) 91.9 % IMM GRAN % (test code = 9702072174) 0.30 % LYMPH % (test code = 736-9) 5.6 % MONO % (test code = 5905-5) 2.1 % EOS % (test code = 713-8) 0.0 % BASO % (test code = 706-2) 0.1 % GRAN MAT x10^3(ANC) (test code = 7584270275) 7.05 10*3/uL 1.88-7.09 IMM GRAN x10^3 (test code = 6035061559) 0.00-0.06 LYMPH x10^3 (test code = 731-0) 0.43 10*3/uL 1.32-3.29 L MONO x10^3 (test code = 742-7) 0.16 10*3/uL 0.33-0.92 L EOS x10^3 (test code = 711-2) 0.03-0.39 L BASO x10^3 (test code = 704-7) 0.01-0.07 Lab Interpretation (test code = 95355-5) [facility]:32:09* Test Item Value Reference Range Interpretation Comme nts NA (test code = 9182565183) 139 mmol/L 135-145 K (test code = 3159801814) 3.9 mmol/L 3.5-5.0 CL (test code = 4760806445) 115 mmol/L 98-108 H CO2 TOTAL (test code = 1368838052) 16 mmol/L 23-31 L AGAP (test code = 0577621177) 8 2-16 BUN (test code = 0594622194) 30 mg/dL 7-23 H GLUCOSE (test code = 6739392843) 173 mg/dL 70-110 H CREATININE (test code = 2160-0) 1.69 mg/dL 0.50-1.04 H TOTAL BILI (test code = 8110688880) 0.4 mg/dL 0.1-1.1 CALCIUM (test code = 0723027054) 10.1 mg/dL 8.6-10.6 T PROTEIN (test code = 1216051479) 8.5 g/dL 6.3-8.2 H ALBUMIN (test code = 8845363713) 3.9 g/dL 3.5-5.0 ALK PHOS (test code = 9725725219) 76 U/L 34-122 ALTv (test code = 1742-6) 35 U/L 5-35 AST(SGOT) (test code = 7240965477) 54 U/L 13-40 H eGFR (test code = 59440-0) 34.4 mL/min/1.73m2 CKD-EPI eGFR (2020). Assuming creatinine has been stable day-to-day for at least three months, the eGFR indicates Category G3b (30 - 44 mL/min/1.73 m2) Lab Interpretation (test code = 24913-8) [facility] 15:37:06* Test Item Value Reference Range Interpretation Comme nts Height (test code = 5756150966) 63 in Weight (test code = 8820363045) 140 lbs Systolic BP (test code = 7224466781) 118 mmHg Diastolic BP (test code = 4956671285) 58 mmHg Heart Rate (test code = 6407356575) 78 bpm BSA (test code = 2658754765) 1.66 m2 Ao root diam (test code = 8992594029) 2.90 cm Aortic root (test code = 0916414299) 2.9 cm Ao root annulus (test code = 2481222223) 2.9 cm LVOT diameter (test code = 5638860652) 1.96 cm LVOT area (test code = 3851557590) 3.00 cm2 LA size (test code = 2836949768) 3.2 cm LVIDD (test code = 0739299976) 2.90 cm Left Ventricular End Diastolic Volume by Teichholz Method (test code = 9887971) 32.6 mL IVS (test code = 8268812948) 1.26 cm Interventricular Septum Diastolic Thickness by 2D (test code = 5987762) 1.26 cm LVPWD (test code = 2156948647) 1.23 cm PW (test code = 3592335562) 1.23 cm 0.6-1.1 EF(Teich) (test code = 2875004646) 55.00 % LVIDS (test code = 2604784093) 2.11 cm Left Ventricular End Systolic Volume by Teichholz Method (test code = 9046716) 14.7 mL FS (test code = 4777883105) 27 % EF - 2D (test code = 05084344) 55.00 % LAV(MOD-sp4) (test code = 3126464365) 20.20 mL E wave decelartion time (test code = 7628934553) 0.18 s MV Peak E Barber (test code = 9667040577) 72.8 cm/s MV stenosis pressure 1/2 time (test code = 5516075651) 51.2 ms MV Peak A Barber (test code = 6472382443) 73.4 cm/s E/A ratio (test code = 9033666215) 0.99 ratio MV Prop V (test code = 2959870743) 180.80 cm/s MV E/e' septal (test code = 7166176470) 10.8 cm/s Tapse (test code = 1024240399) 2.08 cm LVOT stroke volume (test code = 6959780075) 73.30 cm3 LVOT peak barber (test code = 2800274962) 125.3 cm/s LVOT mn grad (test code = 4052040737) 3.6 mmHg AV LVOT peak gradient (test code = 2264412610) 6.3 mmHg LVOT peak VTI (test code = 6040297653) 24.3 cm LV V1 mean (test code = 1860621557) 89.60 cm/s Aortic valve mean velocity (test code = 2321555241) 236.9 cm/s Ao peak barber (test code = 9795106650) 333.6 cm/s Ao VTI (test code = 7470927456) 58.2 cm AV area by cont VTI (test code = 1831020986) 1.3 cm2 AV area peak barber (test code = 5008887222) 1.1 cm2 Ao max PG (test code = 2058371014) 44.60 mm[Hg] AV peak gradient (test code = 4874747729) 44.6 mmHg AV valve area (test code = 8375227513) 1.26 cm2 AV mean gradient (test code = 7454620590) 24.9 mmHg Radiology Study observation (narrative) (test code = 31575-4) GARRY (test code = GARRY) Table formatting [...] 2D, color flow Doppler and spectral Doppler. [facility] WITH [id number] 19:09:02* Test Item Value Reference Range Interpretation [...] 33.5 g/dL 31.6-35.1 RDW-SD (test code = 65358-7) 55.2 fL 39.0-49.9 H RDW-CV (test code = 788-0) 13.4 % 12.0-15.5 PLT (test code = 777-3) 142 166-358 L MPV (test code = 71431-9) 11.4 fL 9.5-12.9 NRBC/100 WBC (test code = 7089599091) 0.0 0.0-10.0 NRBC x10^3 (test code = 5938858499) See_Comment [Automated [employer]] The system which generated this result transmitted reference range: 10*3/?L. The reference range was not used to interpret this result as normal/abnormal. GRAN MAT (NEUT) % (test code = 770-8) 62.9 % IMM GRAN % (test code = 3607767685) 0.40 % LYMPH % (test code = 736-9) 27.3 % MONO % (test code = 5905-5) 9.0 % EOS % (test code = 713-8) 0.2 % BASO % (test code = 706-2) 0.2 % GRAN MAT x10^3(ANC) (test code = 9386443023) 3.30 10*3/uL 1.88-7.09 IMM GRAN x10^3 (test code = 6416587991) 0.00-0.06 LYMPH x10^3 (test code = 731-0) 1.43 10*3/uL 1.32-3.29 MONO x10^3 (test code = 742-7) 0.47 10*3/uL 0.33-0.92 EOS x10^3 (test code = 711-2) 0.03-0.39 L BASO x10^3 (test code = 704-7) 0.01-0.07 Lab Interpretation (test code = 88705-5) Abnormal [facility] [id number] 18:52:52* Test Item Value Reference Range Interpretation Comme nts TROPONIN I (test code = 1138061708) 0.160 ng/mL <=0.034 H GARRY (test code [...] of biotin. Lab Interpretation (test code = 01608-5) Abnormal [facility]. METABOLIC PANEL (33711)2023-05-16 18:41:47* Test Item Value Reference Range Interpretation Comme nts NA (test code = 9197322238) 143 mmol/L 135-145 K (test code = 3707426159) 3.9 mmol/L 3.5-5.0 CL (test code = 3580619067) 116 mmol/L 98-108 H CO2 TOTAL (test code = 9989108803) 15 mmol/L 23-31 L AGAP (test code = 3935686434) 12 2-16 BUN (test code = 6333408844) 29 mg/dL 7-23 H GLUCOSE (test code = 1104685825) 104 mg/dL 70-110 CREATININE (test code = 2160-0) 1.90 mg/dL 0.50-1.04 H TOTAL BILI (test code = 2217976066) 0.5 mg/dL 0.1-1.1 CALCIUM (test code = 4130612553) 10.2 mg/dL 8.6-10.6 T PROTEIN (test code = 2697340639) 9.8 g/dL 6.3-8.2 H ALBUMIN (test code = 7871951538) 4.6 g/dL 3.5-5.0 ALK PHOS (test code = 3374655722) 103 U/L 34-122 ALTv (test code = 1742-6) 44 U/L 5-35 H AST(SGOT) (test code = 8013636207) 54 U/L 13-40 H eGFR (test code = 35168-1) 29.9 mL/min/1.73m2 Lab Interpretation (test cod e = 39092-6) [facility] [id number] 18:41:26* Test Item Value Reference Range Interpretation Comme nts LIPASE (test code = 0801867439) 123 U/L 0-220 Lab Interpretation (test cod e = 89923-5) Normal [facility] Venous Blood [id number] 18:29:21 * Test Item Value Reference Range Interpretation Comme nts PH (test code = 2820732065) 7.25 7.32-7.42 L PCO2 BEBA (test code = 0257502808) 40 41-51 L PO2 BEBA (test code = 4174383237) 27 25-40 HCO3 BEBA (test code = 3855852925) 17 24-28 L AC VBE(BEAKER) (test code = 8880440611) -9.3 mEq/L Lab Interpretation (test cod e = 40304-8) [facility]normal [facility] 1 [id number] 18:03:51HISTORY: Cough and SOB. TECHNIQUE: Portable AP [...] Acute findings could be secondary to viral infection.[facility] HospitalCULTNIALL, [id number] 08:50:21SPECIMEN NUMBER: [id number] CULTURE, URINE SPECIMEN NUMBER: [id number] SPECIMEN COMMENT: URINE SOURCE: URINE REPORT STATUS: FINAL FINAL REPORT: 05/11/2023 10-50,000 CFU/ML UROGENITAL KARLA PRESENT NO COMMON PATHOGENSCULTURE, [id number] 00:00:00* Test Item Value Reference Range Interpretation Comme nts CULTURE, URINE (test code = 10908) SPECIMEN NUMBER: [id number] Delfino SarmientoLTNIALL, [id number] 00:00:00* Test Item Value Reference Range Interpretation Comme nts CULTURE, URINE (test code = 09869) SPECIMEN NUMBER: [id number] Delfino OrtaCULTNIALL, [id number] 00:00:00* Test Item Value Reference Range Interpretation Comme nts CULTURE, URINE (test code = 72853) SPECIMEN NUMBER: [id number] Delfino OrtaCULTNIALL, [id number] 00:00:00* Test Item Value Reference Range Interpretation Comme nts CULTURE, URINE (test code = 31204) SPECIMEN NUMBER: [id number] Delfino OrtaCULTNIALL, [id number] 00:00:00* Test Item Value Reference Range Interpretation Comme nts CULTURE, URINE (test code = 26020) SPECIMEN NUMBER: [id number] Delfino OrtaCULTURE, [id number] 00:00:00* Test Item Value Reference Range Interpretation Comme nts CULTURE, URINE (test code = 70944) SPECIMEN NUMBER: [id number] Delfino Cedeño, [id number] 00:00:00* Test Item Value Reference Range Interpretation Comme nts CULTURE, URINE (test code = 62864) SPECIMEN NUMBER: [id number] Delfino Cedeño [id number] 00:00:00* Test Item Value Reference Range Interpretation Comme nts CULTURE, URINE (test code = 82518) SPECIMEN NUMBER: [id number] Delfino Cedeño, [id number] 00:00:00* Test Item Value Reference Range Interpretation Comme nts CULTURE, URINE (test code = 02927) SPECIMEN NUMBER: [id number] Delfino Cedeño, [id number] 00:00:00* Test Item Value Reference Range Interpretation Comme nts CULTURE, URINE (test code = 95802) SPECIMEN NUMBER: [id number] Delfino Cedeño, [id number] 00:00:00* Test Item Value Reference Range Interpretation Comme nts CULTURE, URINE (test code = 87670) SPECIMEN NUMBER: [id number] Delfino Cedeño, [id number] 00:00:00* Test Item Value Reference Range Interpretation Comme nts CULTURE, URINE (test code = 74334) SPECIMEN NUMBER: [id number] Delfino Cedeño, [id number] 00:00:00* Test Item Value Reference Range Interpretation Comme nts CULTURE, URINE (test code = 62100) SPECIMEN NUMBER: [id number] Delfino SarmientoLTNIALL, [id number] 00:00:00* Test Item Value Reference Range Interpretation Comme nts CULTURE, URINE (test code = 92256) SPECIMEN NUMBER: [id number] Delfino SarmientoLTNIALL, [id number] 00:00:00* Test Item Value Reference Range Interpretation Comme nts CULTURE, URINE (test code = 62925) SPECIMEN NUMBER: [id number] Delfino SarmientoLTNIALL, [id number] 00:00:00* Test Item Value Reference Range Interpretation Comme nts CULTURE, URINE (test code = 28584) SPECIMEN NUMBER: [id number] Delfino Cedeño, [id number] 00:00:00* Test Item Value Reference Range Interpretation Comme nts CULTURE, URINE (test code = 17382) SPECIMEN NUMBER: [id number] Delfino Cedeño, [id number] 00:00:00* Test Item Value Reference Range Interpretation Comme nts CULTURE, URINE (test code = 14522) SPECIMEN NUMBER: [id number] Delfino Cedeño, [id number] 00:00:00* Test Item Value Reference Range Interpretation Comme nts CULTURE, URINE (test code = 87655) SPECIMEN NUMBER: [id number] Delfino Cedeño, [id number] 00:00:00* Test Item Value Reference Range Interpretation Comme nts CULTURE, URINE (test code = 60206) SPECIMEN NUMBER: [id number] Delfino Cedeño, [id number] 00:00:00* Test Item Value Reference Range Interpretation Comme nts CULTURE, URINE (test code = 29074) SPECIMEN NUMBER: [id number] Delfino SarmientoLTNIALL, [id number] 00:00:00* Test Item Value Reference Range Interpretation Comme nts CULTURE, URINE (test code = 62695) SPECIMEN NUMBER: [id number] Delfino Cedeño, [id number] 00:00:00* Test Item Value Reference Range Interpretation Comme nts CULTURE, URINE (test code = 02085) SPECIMEN NUMBER: [id number] Delfino SarmientoLTNIALL, [id number] 00:00:00* Test Item Value Reference Range Interpretation Comme nts CULTURE, URINE (test code = 37760) SPECIMEN NUMBER: [id number] Delfino SarmientoLTNIALL, [id number] 00:00:00* Test Item Value Reference Range Interpretation Comme nts CULTURE, URINE (test code = 95984) SPECIMEN NUMBER: [id number] Delfino SarmientoLTNIALL, [id number] 00:00:00* Test Item Value Reference Range Interpretation Comme nts CULTURE, URINE (test code = 91048) SPECIMEN NUMBER: [id number] Delfino Cedeño, [id number] 00:00:00* Test Item Value Reference Range Interpretation Comme nts CULTURE, URINE (test code = 73826) SPECIMEN NUMBER: [id number] Delfino Cedeño [id number] 00:00:00* Test Item Value Reference Range Interpretation Comme nts CULTURE, URINE (test code = 67880) SPECIMEN NUMBER: [id number] Delfino Cedeño [id number] 00:00:00* Test Item Value Reference Range Interpretation Comme nts CULTURE, URINE (test code = 87022) SPECIMEN NUMBER: [id number] Delfino Cedeño [id number] 00:00:00* Test Item Value Reference Range Interpretation Comme nts CULTURE, URINE (test code = 57125) SPECIMEN NUMBER: [id number] Delfino Cedeño, [id number] 00:00:00* Test Item Value Reference Range Interpretation Comme nts CULTURE, URINE (test code = 80876) SPECIMEN NUMBER: [id number] Delfino Cedeño, [id number] 00:00:00* Test Item Value Reference Range Interpretation Comme nts CULTURE, URINE (test code = 78461) SPECIMEN NUMBER: [id number] Delfino Cedeño, [id number] 00:00:00* Test Item Value Reference Range Interpretation Comme nts CULTURE, URINE (test code = 98587) SPECIMEN NUMBER: [id number] Delfino Cedeño, [id number] 00:00:00* Test Item Value Reference Range Interpretation Comme nts CULTURE, URINE (test code = 88800) SPECIMEN NUMBER: [id number] Delfino OrtaVAGINAL PATHOGENS DNA [id number] 14:05:30* Test Item Value Reference Range Interpretation Comme nts DIANNA SPECIES (test code = 64472) NEGATIVE NEGATIVE G. VAGINALIS (test code = 89033) NEGATIVE NEGATIVE T. VAGINALIS (test code = 76142) NEGATIVE NEGATIVE Note: The [facility] VPIII Microbial Identification Testis a DNA probe test intended for use in the detectionand identification of Dianna species, Gardnerellavaginalis and Trichomonas vaginalis nucleic acid. CT/NG, NAAT, [id number] 12:17:23* Test Item Value Reference Range Interpretation Comme nts CHLAMYDIA, NAAT, URINE (test code = 22723) NEGATIVE NEGATIVE Testing is perfo rmed with Epifanio JOSE 6800/8800 systems usingreal-time polymerase chain reaction (PCR) method. A negative result does not exclude low level infection, specimensampling error, or collection error. GONORRHEA, NAAT, URINE (test code = 88802) NEGATIVE NEGATIVE Testing is perfo rmed with Epifanio JOSE 6800/8800 systems usingreal-time polymerase chain reaction (PCR) method. A negative result does not exclude low level infection, specimensampling error, or collection error. UNLESS OTHERWISE INDICATED, ALL TESTING PERFORMED AT [facility] [address] [place] [address] [employer] SERVICES MANAGER: ABBI SHORT M.D. CLIA NUMBER [id number] [facility] [place] [id number] VAGINAL PATHOGENS DNA [id number] 00:00:00* Test Item Value Reference Range Interpretation Comme nts DIANNA SPECIES (test code = ) NEGATIVE G. VAGINALIS (test code = 88543) NEGATIVE T. VAGINALIS (test code = 65678) NEGATIVE Delfino F AustinCT/NG, TMA, [id number] 00:00:00* Test Item Value Reference Range Interpretation Comme nts CHLAMYDIA, NAAT, URINE (test code = 11026) NEGATIVE GONORRHEA, NAAT, URINE (test code = 95464) NEGATIVE Delfino F AustinVAGINAL PATHOGENS DNA [id number] 00:00:00* Test Item Value Reference Range Interpretation Comme nts DIANNA SPECIES (test code = ) NEGATIVE G. VAGINALIS (test code = 57427) NEGATIVE T. VAGINALIS (test code = 92164) NEGATIVE Delfino F AustinCT/NG, TMA, [id number] 00:00:00* Test Item Value Reference Range Interpretation Comme nts CHLAMYDIA, NAAT, URINE (test code = 98429) NEGATIVE GONORRHEA, NAAT, URINE (test code = 67909) NEGATIVE Delfino F AustinVAGINAL PATHOGENS DNA [id number] 00:00:00* Test Item Value Reference Range Interpretation Comme nts DIANNA SPECIES (test code = 61281) NEGATIVE G. VAGINALIS (test code = 38833) NEGATIVE T. VAGINALIS (test code = 12483) NEGATIVE Delfino F AustinCT/NG, TMA, [id number] 00:00:00* Test Item Value Reference Range Interpretation Comme nts CHLAMYDIA, NAAT, URINE (test code = 01688) NEGATIVE GONORRHEA, NAAT, URINE (test code = 95331) NEGATIVE Delfino F AustinVAGINAL PATHOGENS DNA [id number] 00:00:00* Test Item Value Reference Range Interpretation Comme nts DIANNA SPECIES (test code = 38711) NEGATIVE G. VAGINALIS (test code = 31352) NEGATIVE T. VAGINALIS (test code = 80992) NEGATIVE Delfino F AustinVAGINAL PATHOGENS DNA [id number] 00:00:00* Test Item Value Reference Range Interpretation Comme nts DIANNA SPECIES (test code = 03381) NEGATIVE G. VAGINALIS (test code = 48458) NEGATIVE T. VAGINALIS (test code = 97829) NEGATIVE Delfino F AustinCT/NG, TMA, [id number] 00:00:00* Test Item Value Reference Range Interpretation Comme nts CHLAMYDIA, NAAT, URINE (test code = 58505) NEGATIVE GONORRHEA, NAAT, URINE (test code = 52311) NEGATIVE Delfino F AustinVAGINAL PATHOGENS DNA [id number] 00:00:00* Test Item Value Reference Range Interpretation Comme nts DIANNA SPECIES (test code = ) NEGATIVE G. VAGINALIS (test code = 35275) NEGATIVE T. VAGINALIS (test code = 95577) NEGATIVE Delfino F AustinCT/NG, TMA, [id number] 00:00:00* Test Item Value Reference Range Interpretation Comme nts CHLAMYDIA, NAAT, URINE (test code = 24412) NEGATIVE GONORRHEA, NAAT, URINE (test code = 53926) NEGATIVE Delfino F AustinCT/NG, TMA, [id number] 00:00:00* Test Item Value Reference Range Interpretation Comme nts CHLAMYDIA, NAAT, URINE (test code = 13915) NEGATIVE GONORRHEA, NAAT, URINE (test code = 27253) NEGATIVE Delfino F AustinVAGINAL PATHOGENS DNA [id number] 00:00:00* Test Item Value Reference Range Interpretation Comme nts DIANNA SPECIES (test code = ) NEGATIVE G. VAGINALIS (test code = 30353) NEGATIVE T. VAGINALIS (test code = 02347) NEGATIVE Delfino Schumacher AustinCT/NG, TMA, [id number] 00:00:00* Test Item Value Reference Range Interpretation Comme nts CHLAMYDIA, NAAT, URINE (test code = 85808) NEGATIVE GONORRHEA, NAAT, URINE (test code = 20688) NEGATIVE Delfino Schumacher AustinVAGINAL PATHOGENS DNA [id number] 00:00:00* Test Item Value Reference Range Interpretation Comme nts DIANNA SPECIES (test code = ) NEGATIVE G. VAGINALIS (test code = 21428) NEGATIVE T. VAGINALIS (test code = 64942) NEGATIVE Delfino Schumacher AustinCT/NG, TMA, [id number] 00:00:00* Test Item Value Reference Range Interpretation Comme nts CHLAMYDIA, NAAT, URINE (test code = 33792) NEGATIVE GONORRHEA, NAAT, URINE (test code = 95219) NEGATIVE Delfino Schumacher AustinVAGINAL PATHOGENS DNA [id number] 00:00:00* Test Item Value Reference Range Interpretation Comme nts DIANNA SPECIES (test code = ) NEGATIVE G. VAGINALIS (test code = 57463) NEGATIVE T. VAGINALIS (test code = 37233) NEGATIVE Delfino Schumacher AustinCT/NG, TMA, [id number] 00:00:00* Test Item Value Reference Range Interpretation Comme nts CHLAMYDIA, NAAT, URINE (test code = 02545) NEGATIVE GONORRHEA, NAAT, URINE (test code = 99709) NEGATIVE Delfino Schumacher AustinVAGINAL PATHOGENS DNA [id number] 00:00:00* Test Item Value Reference Range Interpretation Comme nts DIANNA SPECIES (test code = ) NEGATIVE G. VAGINALIS (test code = 17941) NEGATIVE T. VAGINALIS (test code = 06688) NEGATIVE Delfino Schumacher AustinCT/NG, TMA, [id number] 00:00:00* Test Item Value Reference Range Interpretation Comme nts CHLAMYDIA, NAAT, URINE (test code = 94765) NEGATIVE GONORRHEA, NAAT, URINE (test code = 48619) NEGATIVE Delfino Schumacher AustinVAGINAL PATHOGENS DNA [id number] 00:00:00* Test Item Value Reference Range Interpretation Comme nts DIANNA SPECIES (test code = ) NEGATIVE G. VAGINALIS (test code = 31645) NEGATIVE T. VAGINALIS (test code = 97489) NEGATIVE Delfino Endy AustinCT/NG, TMA, [id number] 00:00:00* Test Item Value Reference Range Interpretation Comme nts CHLAMYDIA, NAAT, URINE (test code = 38472) NEGATIVE GONORRHEA, NAAT, URINE (test code = 44556) NEGATIVE Delfino Endy AustinVAGINAL PATHOGENS DNA [id number] 00:00:00* Test Item Value Reference Range Interpretation Comme nts DIANNA SPECIES (test code = ) NEGATIVE G. VAGINALIS (test code = 86666) NEGATIVE T. VAGINALIS (test code = 98225) NEGATIVE Delfino F AustinCT/NG, TMA, [id number] 00:00:00* Test Item Value Reference Range Interpretation Comme nts CHLAMYDIA, NAAT, URINE (test code = 94091) NEGATIVE GONORRHEA, NAAT, URINE (test code = 19902) NEGATIVE Delfino F AustinVAGINAL PATHOGENS DNA [id number] 00:00:00* Test Item Value Reference Range Interpretation Comme nts DIANNA SPECIES (test code = ) NEGATIVE G. VAGINALIS (test code = 48682) NEGATIVE T. VAGINALIS (test code = ) NEGATIVE Delfino Endy AustinCT/NG, TMA, [id number] 00:00:00* Test Item Value Reference Range Interpretation Comme nts CHLAMYDIA, NAAT, URINE (test code = 53490) NEGATIVE GONORRHEA, NAAT, URINE (test code = 37007) NEGATIVE Delfino Endy AustinVAGINAL PATHOGENS DNA [id number] 00:00:00* Test Item Value Reference Range Interpretation Comme nts DIANNA SPECIES (test code = ) NEGATIVE G. VAGINALIS (test code = 20566) NEGATIVE T. VAGINALIS (test code = 17205) NEGATIVE Delfino F AustinCT/NG, TMA, [id number] 00:00:00* Test Item Value Reference Range Interpretation Comme nts CHLAMYDIA, NAAT, URINE (test code = 60096) NEGATIVE GONORRHEA, NAAT, URINE (test code = 62529) NEGATIVE Delfino F AustinVAGINAL PATHOGENS DNA [id number] 00:00:00* Test Item Value Reference Range Interpretation Comme nts DIANNA SPECIES (test code = ) NEGATIVE G. VAGINALIS (test code = 53825) NEGATIVE T. VAGINALIS (test code = ) NEGATIVE Delfino Schumacher AustinCT/NG, TMA, [id number] 00:00:00* Test Item Value Reference Range Interpretation Comme nts CHLAMYDIA, NAAT, URINE (test code = 00928) NEGATIVE GONORRHEA, NAAT, URINE (test code = 25797) NEGATIVE Delfino Schumacher AustinVAGINAL PATHOGENS DNA [id number] 00:00:00* Test Item Value Reference Range Interpretation Comme nts DIANNA SPECIES (test code = ) NEGATIVE G. VAGINALIS (test code = 12151) NEGATIVE T. VAGINALIS (test code = 91295) NEGATIVE Delfino Schumacher AustinCT/NG, TMA, [id number] 00:00:00* Test Item Value Reference Range Interpretation Comme nts CHLAMYDIA, NAAT, URINE (test code = 89510) NEGATIVE GONORRHEA, NAAT, URINE (test code = 00770) NEGATIVE Delfino Schumacher AustinVAGINAL PATHOGENS DNA [id number] 00:00:00* Test Item Value Reference Range Interpretation Comme nts DIANNA SPECIES (test code = ) NEGATIVE G. VAGINALIS (test code = 06609) NEGATIVE T. VAGINALIS (test code = ) NEGATIVE Delfino Schumacher AustinCT/NG, TMA, [id number] 00:00:00* Test Item Value Reference Range Interpretation Comme nts CHLAMYDIA, NAAT, URINE (test code = 82935) NEGATIVE GONORRHEA, NAAT, URINE (test code = 86893) NEGATIVE Delfino Schumacher AustinVAGINAL PATHOGENS DNA [id number] 00:00:00* Test Item Value Reference Range Interpretation Comme nts DIANNA SPECIES (test code = ) NEGATIVE G. VAGINALIS (test code = 36675) NEGATIVE T. VAGINALIS (test code = 47580) NEGATIVE Delfino F AustinCT/NG, TMA, [id number] 00:00:00* Test Item Value Reference Range Interpretation Comme nts CHLAMYDIA, NAAT, URINE (test code = 61036) NEGATIVE GONORRHEA, NAAT, URINE (test code = 96245) NEGATIVE Delfino F AustinVAGINAL PATHOGENS DNA [id number] 00:00:00* Test Item Value Reference Range Interpretation Comme nts DIANNA SPECIES (test code = ) NEGATIVE G. VAGINALIS (test code = 21638) NEGATIVE T. VAGINALIS (test code = 92586) NEGATIVE Delfino Schumacher AustinCT/NG, TMA, [id number] 00:00:00* Test Item Value Reference Range Interpretation Comme nts CHLAMYDIA, NAAT, URINE (test code = 22709) NEGATIVE GONORRHEA, NAAT, URINE (test code = 44207) NEGATIVE Delfino Schumacher AustinVAGINAL PATHOGENS DNA [id number] 00:00:00* Test Item Value Reference Range Interpretation Comme nts DIANNA SPECIES (test code = ) NEGATIVE G. VAGINALIS (test code = 54178) NEGATIVE T. VAGINALIS (test code = 96271) NEGATIVE Delfino Schumacher AustinCT/NG, TMA, [id number] 00:00:00* Test Item Value Reference Range Interpretation Comme nts CHLAMYDIA, NAAT, URINE (test code = 10176) NEGATIVE GONORRHEA, NAAT, URINE (test code = 89957) NEGATIVE Delfino Schumacher AustinVAGINAL PATHOGENS DNA [id number] 00:00:00* Test Item Value Reference Range Interpretation Comme nts DIANNA SPECIES (test code = ) NEGATIVE G. VAGINALIS (test code = 73176) NEGATIVE T. VAGINALIS (test code = 91828) NEGATIVE Delfino Schumacher AustinCT/NG, TMA, [id number] 00:00:00* Test Item Value Reference Range Interpretation Comme nts CHLAMYDIA, NAAT, URINE (test code = 56868) NEGATIVE GONORRHEA, NAAT, URINE (test code = 52799) NEGATIVE Delfino Schumacher AustinVAGINAL PATHOGENS DNA [id number] 00:00:00* Test Item Value Reference Range Interpretation Comme nts DIANNA SPECIES (test code = ) NEGATIVE G. VAGINALIS (test code = 54195) NEGATIVE T. VAGINALIS (test code = 65994) NEGATIVE Delfino F AustinCT/NG, TMA, [id number] 00:00:00* Test Item Value Reference Range Interpretation Comme nts CHLAMYDIA, NAAT, URINE (test code = 32068) NEGATIVE GONORRHEA, NAAT, URINE (test code = 64687) NEGATIVE Delfino F AustinVAGINAL PATHOGENS DNA [id number] 00:00:00* Test Item Value Reference Range Interpretation Comme nts DIANNA SPECIES (test code = ) NEGATIVE G. VAGINALIS (test code = 79020) NEGATIVE T. VAGINALIS (test code = 77703) NEGATIVE Delfino F AustinCT/NG, TMA, [id number] 00:00:00* Test Item Value Reference Range Interpretation Comme nts CHLAMYDIA, NAAT, URINE (test code = 47023) NEGATIVE GONORRHEA, NAAT, URINE (test code = 64048) NEGATIVE Delfino F AustinVAGINAL PATHOGENS DNA [id number] 00:00:00* Test Item Value Reference Range Interpretation Comme nts DIANNA SPECIES (test code = ) NEGATIVE G. VAGINALIS (test code = 74540) NEGATIVE T. VAGINALIS (test code = 25034) NEGATIVE Delfino F AustinCT/NG, TMA, [id number] 00:00:00* Test Item Value Reference Range Interpretation Comme nts CHLAMYDIA, NAAT, URINE (test code = 48117) NEGATIVE GONORRHEA, NAAT, URINE (test code = 30929) NEGATIVE Delfino F AustinVAGINAL PATHOGENS DNA [id number] 00:00:00* Test Item Value Reference Range Interpretation Comme nts DIANNA SPECIES (test code = ) NEGATIVE G. VAGINALIS (test code = 27386) NEGATIVE T. VAGINALIS (test code = 24104) NEGATIVE Delfino Endy AustinCT/NG, TMA, [id number] 00:00:00* Test Item Value Reference Range Interpretation Comme nts CHLAMYDIA, NAAT, URINE (test code = 89549) NEGATIVE GONORRHEA, NAAT, URINE (test code = 89950) NEGATIVE Delfino F AustinVAGINAL PATHOGENS DNA [id number] 00:00:00* Test Item Value Reference Range Interpretation Comme nts DIANNA SPECIES (test code = 11448) NEGATIVE G. VAGINALIS (test code = 59085) NEGATIVE T. VAGINALIS (test code = 18870) NEGATIVE Delfino F AustinCT/NG, TMA, [id number] 00:00:00* Test Item Value Reference Range Interpretation Comme nts CHLAMYDIA, NAAT, URINE (test code = 72306) NEGATIVE GONORRHEA, NAAT, URINE (test code = 93465) NEGATIVE Delfino F AustinVAGINAL PATHOGENS DNA [id number] 00:00:00* Test Item Value Reference Range Interpretation Comme nts DIANNA SPECIES (test code = 37569) NEGATIVE G. VAGINALIS (test code = 88210) NEGATIVE T. VAGINALIS (test code = 14368) NEGATIVE Delfino F AustinCT/NG, TMA, [id number] 00:00:00* Test Item Value Reference Range Interpretation Comme nts CHLAMYDIA, NAAT, URINE (test code = 37473) NEGATIVE GONORRHEA, NAAT, URINE (test code = 23924) NEGATIVE Delfino F AustinVAGINAL PATHOGENS DNA [id number] 00:00:00* Test Item Value Reference Range Interpretation Comme nts DIANNA SPECIES (test code = ) NEGATIVE G. VAGINALIS (test code = 61090) NEGATIVE T. VAGINALIS (test code = 37063) NEGATIVE Delfino F AustinCT/NG, TMA, [id number] 00:00:00* Test Item Value Reference Range Interpretation Comme nts CHLAMYDIA, NAAT, URINE (test code = 59992) NEGATIVE GONORRHEA, NAAT, URINE (test code = 97180) NEGATIVE Delfino F AustinVAGINAL PATHOGENS DNA [id number] 00:00:00* Test Item Value Reference Range Interpretation Comme nts DIANNA SPECIES (test code = ) NEGATIVE G. VAGINALIS (test code = 83139) NEGATIVE T. VAGINALIS (test code = 60313) NEGATIVE Delfino Schumacher AustinCT/NG, TMA, [id number] 00:00:00* Test Item Value Reference Range Interpretation Comme nts CHLAMYDIA, NAAT, URINE (test code = 71941) NEGATIVE GONORRHEA, NAAT, URINE (test code = 78391) NEGATIVE Delfino F Austin[facility]AG[facility] PATH[facility]ENS DNA [id number] 00:00:00* Test Item Value Reference Range Interpretation Comme nts DIANNA SPECIES (test code = 14259) NEGATIVE G. VAGINALIS (test code = 73307) NEGATIVE T. VAGINALIS (test code = 69558) NEGATIVE Delfino F AustinCT/NG, TMA, [id number] 00:00:00* Test Item Value Reference Range Interpretation Comme nts CHLAMYDIA, NAAT, URINE (test code = 16379) NEGATIVE GONORRHEA, NAAT, URINE (test code = 43319) NEGATIVE Delfino F Austin[facility]AG[facility] PATHOGENS DNA [id number] 00:00:00* Test Item Value Reference Range Interpretation Comme nts DIANNA SPECIES (test code = ) NEGATIVE G. VAGINALIS (test code = 02955) NEGATIVE T. VAGINALIS (test code = 69787) NEGATIVE Delfino F AustinCT/NG, TMA, [id number] 00:00:00* Test Item Value Reference Range Interpretation Comme nts CHLAMYDIA, NAAT, URINE (test code = 23725) NEGATIVE GONORRHEA, NAAT, URINE (test code = 31429) NEGATIVE Delfino F AustinVAGINAL PATHOGENS DNA [id number] 00:00:00* Test Item Value Reference Range Interpretation Comme nts DIANNA SPECIES (test code = ) NEGATIVE G. VAGINALIS (test code = 48867) NEGATIVE T. VAGINALIS (test code = 24297) NEGATIVE Delfino F AustinCT/NG, TMA, [id number] 00:00:00* Test Item Value Reference Range Interpretation Comme nts CHLAMYDIA, NAAT, URINE (test code = 03488) NEGATIVE GONORRHEA, NAAT, URINE (test code = 58296) NEGATIVE Delfino F AustinVAGINAL PATHOGENS DNA [id number] 00:00:00* Test Item Value Reference Range Interpretation Comme nts DIANNA SPECIES (test code = ) NEGATIVE G. VAGINALIS (test code = 72508) NEGATIVE T. VAGINALIS (test code = 03043) NEGATIVE Delfino F AustinCT/NG, TMA, [id number] 00:00:00* Test Item Value Reference Range Interpretation Comme nts CHLAMYDIA, NAAT, URINE (test code = 18294) NEGATIVE GONORRHEA, NAAT, URINE (test code = 54253) NEGATIVE Delfino F AustinVAGINAL PATHOGENS DNA [id number] 00:00:00* Test Item Value Reference Range Interpretation Comme nts DIANNA SPECIES (test code = 40798) NEGATIVE G. VAGINALIS (test code = 12908) NEGATIVE T. VAGINALIS (test code = 81455) NEGATIVE Delfino F AustinCT/NG, TMA, [id number] 00:00:00* Test Item Value Reference Range Interpretation Comme nts CHLAMYDIA, NAAT, URINE (test code = 28146) NEGATIVE GONORRHEA, NAAT, URINE (test code = 22228) NEGATIVE Delfino Schumacher [id number] 20:25:19* Test Item Value Reference Range Interpretation Comme nts CALCIUM (test code = 2209) 10.6 MG/DL 8.5-10.5 H [id number] 20:25:10* Test Item Value Reference Range Interpretation Comme nts PHOSPHORUS (test code = 2227) 2.9 MG/DL 2.5-4.5 UNLESS OTHERWISE INDICATED, ALL TESTING PERFORMED AT [facility] [address] [place] [address] [employer] SERVICES MANAGER: ABBI SHORT M.D. CLIA NUMBER [id number] [facility] [place]. [id number] CALCIUM, [id number] 09:33:19* Test Item Value Reference Range Interpretation Comme nts CALCIUM, IONIZED (test code = 54493) 5.50 MG/DL 4.70-5.90 INTACT [id number] 09:28:17* Test Item Value Reference Range Interpretation Comme nts INTACT PTH (test code = 5005) 60 PG/ML 15-65 [id number] 00:00:00* Test Item Value Reference Range Interpretation Comme nts CALCIUM (test code = 2209) 10.6 MG/DL Delfino Schumacher QdmfhbEHXWIPGDIU1737-37-56 00:00:00* Test Item Value Reference Range Interpretation Comme nts PHOSPHORUS (test code = 2227) 2.9 MG/DL Delfino Schumacher AustinINTACT [id number] 00:00:00* Test Item Value Reference Range Interpretation Comme nts INTACT PTH (test code = 5005) 60 PG/ML Delfino Schumacher AustinCALCIUM, [id number] 00:00:00* Test Item Value Reference Range Interpretation Comme nts CALCIUM, IONIZED (test code = 50842) 5.50 MG/DL Delfino Schumacher OvjaftFZGZHXU9024-73-61 00:00:00* Test Item Value Reference Range Interpretation Comme nts CALCIUM (test code = 2209) 10.6 MG/DL Delfino Schumacher [id number] 00:00:00* Test Item Value Reference Range Interpretation Comme nts PHOSPHORUS (test code = 2227) 2.9 MG/DL Delfino Schumacher AustinINTACT [id number] 00:00:00* Test Item Value Reference Range Interpretation Comme nts INTACT PTH (test code = 5005) 60 PG/ML Delfino Schumacher AustinCALCIUM, [id number] 00:00:00* Test Item Value Reference Range Interpretation Comme nts CALCIUM, IONIZED (test code = 44978) 5.50 MG/DL Delfino Schumacher AustinCALCIUM, [id number] 00:00:00* Test Item Value Reference Range Interpretation Comme nts CALCIUM, IONIZED (test code = 54289) 5.50 MG/DL Delfino Schumacher KnxszgLZRQGZA7795-25-88 00:00:00* Test Item Value Reference Range Interpretation Comme nts CALCIUM (test code = 2209) 10.6 MG/DL Delfino Schumacher SwuvlaKNPXFUTVEZ5832-31-63 00:00:00* Test Item Value Reference Range Interpretation Comme nts PHOSPHORUS (test code = 2227) 2.9 MG/DL Delfino Schumacher AustinINTACT [id number] 00:00:00* Test Item Value Reference Range Interpretation Comme nts INTACT PTH (test code = 5005) 60 PG/ML Delfino OrtaCALCIUM, [id number] 00:00:00* Test Item Value Reference Range Interpretation Comme nts CALCIUM, IONIZED (test code = 64210) 5.50 MG/DL Delfino Schumacher RmajemWYEHMZE4225-03-89 00:00:00* Test Item Value Reference Range Interpretation Comme nts CALCIUM (test code = 2209) 10.6 MG/DL Delfino Schumacher ZhfsmxXKNSTWKKAC0476-13-35 00:00:00* Test Item Value Reference Range Interpretation Comme nts PHOSPHORUS (test code = 2227) 2.9 MG/DL Delfino Schumacher AustinINTACT [id number] 00:00:00* Test Item Value Reference Range Interpretation Comme nts INTACT PTH (test code = 5005) 60 PG/ML Delfino Schumacher AustinCALCIUM, [id number] 00:00:00* Test Item Value Reference Range Interpretation Comme nts CALCIUM, IONIZED (test code = 56132) 5.50 MG/DL Delfino Schumacher [id number] 00:00:00* Test Item Value Reference Range Interpretation Comme nts CALCIUM (test code = 2209) 10.6 MG/DL Delfino Schumacher BzelwqTLBVJUF8798-77-78 00:00:00* Test Item Value Reference Range Interpretation Comme nts CALCIUM (test code = 2209) 10.6 MG/DL Delfino Schumacher [id number] 00:00:00* Test Item Value Reference Range Interpretation Comme nts PHOSPHORUS (test code = 2227) 2.9 MG/DL Delfino Schumacher AustinINTACT [id number] 00:00:00* Test Item Value Reference Range Interpretation Comme nts INTACT PTH (test code = 5005) 60 PG/ML Delfino Schumacher AustinCALCIUM, [id number] 00:00:00* Test Item Value Reference Range Interpretation Comme nts CALCIUM, IONIZED (test code = 75150) 5.50 MG/DL Delfino Schumacher PecvneXTOFJTF7074-07-57 00:00:00* Test Item Value Reference Range Interpretation Comme nts CALCIUM (test code = 2209) 10.6 MG/DL Delfino Schumacher HzzqxeDIVMWFNSUU9230-37-59 00:00:00* Test Item Value Reference Range Interpretation Comme nts PHOSPHORUS (test code = 2227) 2.9 MG/DL Delfino Schumacher SecrccNNGOEDSIEI9022-11-58 00:00:00* Test Item Value Reference Range Interpretation Comme nts PHOSPHORUS (test code = 2227) 2.9 MG/DL Delfino Schumacher AustinINTACT [id number] 00:00:00* Test Item Value Reference Range Interpretation Comme nts INTACT PTH (test code = 5005) 60 PG/ML Delfino OrtaCALCIUM, [id number] 00:00:00* Test Item Value Reference Range Interpretation Comme nts CALCIUM, IONIZED (test code = 26638) 5.50 MG/DL Delfino Schumacher [id number] 00:00:00* Test Item Value Reference Range Interpretation Comme nts CALCIUM (test code = 2209) 10.6 MG/DL Delfino Schumacher GxrahkZKOYRAWUXS3904-82-99 00:00:00* Test Item Value Reference Range Interpretation Comme nts PHOSPHORUS (test code = 2227) 2.9 MG/DL Delfino Schumacher AustinINTACT [id number] 00:00:00* Test Item Value Reference Range Interpretation Comme nts INTACT PTH (test code = 5005) 60 PG/ML Delfino Schumacher AustinCALCIUM, [id number] 00:00:00* Test Item Value Reference Range Interpretation Comme nts CALCIUM, IONIZED (test code = 64909) 5.50 MG/DL Delfino Schumacher [id number] 00:00:00* Test Item Value Reference Range Interpretation Comme nts CALCIUM (test code = 2209) 10.6 MG/DL Delfino Schumacher QvwffoVHLWUYGABE1795-38-89 00:00:00* Test Item Value Reference Range Interpretation Comme nts PHOSPHORUS (test code = 2227) 2.9 MG/DL Delfino Schumacher AustinINTACT [id number] 00:00:00* Test Item Value Reference Range Interpretation Comme nts INTACT PTH (test code = 5005) 60 PG/ML Delfino Schumacher AustinCALCIUM, [id number] 00:00:00* Test Item Value Reference Range Interpretation Comme nts CALCIUM, IONIZED (test code = 16040) 5.50 MG/DL Delfino Schumacher EvzjerTUFQRMS6559-31-36 00:00:00* Test Item Value Reference Range Interpretation Comme nts CALCIUM (test code = 2209) 10.6 MG/DL Delfino Schumacher KbdjidBWOYFYMAEZ7013-02-47 00:00:00* Test Item Value Reference Range Interpretation Comme nts PHOSPHORUS (test code = 2227) 2.9 MG/DL Delfino Schumacher AustinINTACT [id number] 00:00:00* Test Item Value Reference Range Interpretation Comme nts INTACT PTH (test code = 5005) 60 PG/ML Delfino OrtaCALCIUM, [id number] 00:00:00* Test Item Value Reference Range Interpretation Comme nts CALCIUM, IONIZED (test code = 50389) 5.50 MG/DL Delfino Schumacher ErsmfcOHULZVV6311-25-23 00:00:00* Test Item Value Reference Range Interpretation Comme nts CALCIUM (test code = 2209) 10.6 MG/DL Delfino Schumacher XrwueeJYZHRKSZHU4030-15-57 00:00:00* Test Item Value Reference Range Interpretation Comme nts PHOSPHORUS (test code = 2227) 2.9 MG/DL Delfino Schumacher AustinINTACT [id number] 00:00:00* Test Item Value Reference Range Interpretation Comme nts INTACT PTH (test code = 5005) 60 PG/ML Delfino Schumacher AustinCALCIUM, [id number] 00:00:00* Test Item Value Reference Range Interpretation Comme nts CALCIUM, IONIZED (test code = 84630) 5.50 MG/DL Delfino Schumacher SkxeaeVMQTQHW3225-80-66 00:00:00* Test Item Value Reference Range Interpretation Comme nts CALCIUM (test code = 2209) 10.6 MG/DL Delfino Schumacher WiqpepTEWQCXHZSW5446-83-44 00:00:00* Test Item Value Reference Range Interpretation Comme nts PHOSPHORUS (test code = 2227) 2.9 MG/DL Delfino Schumacher AustinINTACT [id number] 00:00:00* Test Item Value Reference Range Interpretation Comme nts INTACT PTH (test code = 5005) 60 PG/ML Delfino Schumacher AustinCALCIUM, [id number] 00:00:00* Test Item Value Reference Range Interpretation Comme nts CALCIUM, IONIZED (test code = 54276) 5.50 MG/DL Delfino Schumacher [id number] 00:00:00* Test Item Value Reference Range Interpretation Comme nts CALCIUM (test code = 2209) 10.6 MG/DL Delfino Schumacher RkirjlXHYXYHYUCK6034-08-88 00:00:00* Test Item Value Reference Range Interpretation Comme nts PHOSPHORUS (test code = 2227) 2.9 MG/DL Delfino Schumacher AustinINTACT [id number] 00:00:00* Test Item Value Reference Range Interpretation Comme nts INTACT PTH (test code = 5005) 60 PG/ML Delfino Schumacher AustinCALCIUM, [id number] 00:00:00* Test Item Value Reference Range Interpretation Comme nts CALCIUM, IONIZED (test code = 43867) 5.50 MG/DL Delfino Schumacher ZhfgywCDCWAOL7251-28-82 00:00:00* Test Item Value Reference Range Interpretation Comme nts CALCIUM (test code = 2209) 10.6 MG/DL Delfino Schumacher TfpmmiXZBRVRSFMR7930-13-20 00:00:00* Test Item Value Reference Range Interpretation Comme nts PHOSPHORUS (test code = 2227) 2.9 MG/DL Delfino Schumacher AustinINTACT [id number] 00:00:00* Test Item Value Reference Range Interpretation Comme nts INTACT PTH (test code = 5005) 60 PG/ML Delfino Schumacher AustinCALCIUM, [id number] 00:00:00* Test Item Value Reference Range Interpretation Comme nts CALCIUM, IONIZED (test code = 12328) 5.50 MG/DL Delfino Schumacher EvvanuZKNRIXF0705-76-87 00:00:00* Test Item Value Reference Range Interpretation Comme nts CALCIUM (test code = 2209) 10.6 MG/DL Delfino Schumacher QqlnmhGYWKIKOHLU7592-80-70 00:00:00* Test Item Value Reference Range Interpretation Comme nts PHOSPHORUS (test code = 2227) 2.9 MG/DL Delfino Schumacher AustinINTACT [id number] 00:00:00* Test Item Value Reference Range Interpretation Comme nts INTACT PTH (test code = 5005) 60 PG/ML Delfino Schumacher AustinCALCIUM, [id number] 00:00:00* Test Item Value Reference Range Interpretation Comme nts CALCIUM, IONIZED (test code = 81737) 5.50 MG/DL Delfino Schumacher BstrrbMWSCPNA2744-02-73 00:00:00* Test Item Value Reference Range Interpretation Comme nts CALCIUM (test code = 2209) 10.6 MG/DL Delfino Schumacher JbeexkHIKOXZMYBV1749-76-42 00:00:00* Test Item Value Reference Range Interpretation Comme nts PHOSPHORUS (test code = 2227) 2.9 MG/DL Delfino Schumacehr AustinINTACT [id number] 00:00:00* Test Item Value Reference Range Interpretation Comme nts INTACT PTH (test code = 5005) 60 PG/ML Delfino Schumacher AustinCALCIUM, [id number] 00:00:00* Test Item Value Reference Range Interpretation Comme nts CALCIUM, IONIZED (test code = 18216) 5.50 MG/DL Delfino Schumacher EtltcsNDKJBPO1793-50-73 00:00:00* Test Item Value Reference Range Interpretation Comme nts CALCIUM (test code = 2209) 10.6 MG/DL Delfino Schumacher ClzzxxVDBKDHHPGY9554-20-28 00:00:00* Test Item Value Reference Range Interpretation Comme nts PHOSPHORUS (test code = 2227) 2.9 MG/DL Delfino Schumacher AustinINTACT [id number] 00:00:00* Test Item Value Reference Range Interpretation Comme nts INTACT PTH (test code = 5005) 60 PG/ML Delfino Schumacher AustinCALCIUM, [id number] 00:00:00* Test Item Value Reference Range Interpretation Comme nts CALCIUM, IONIZED (test code = 56591) 5.50 MG/DL Delfino Schumacher [id number] 00:00:00* Test Item Value Reference Range Interpretation Comme nts CALCIUM (test code = 2209) 10.6 MG/DL Delfino Schumacher BhpeihRIZOKRIYUX9065-18-79 00:00:00* Test Item Value Reference Range Interpretation Comme nts PHOSPHORUS (test code = 2227) 2.9 MG/DL Delfino Schumacher AustinINTACT [id number] 00:00:00* Test Item Value Reference Range Interpretation Comme nts INTACT PTH (test code = 5005) 60 PG/ML Delfino Schumacher AustinCALCIUM, [id number] 00:00:00* Test Item Value Reference Range Interpretation Comme nts CALCIUM, IONIZED (test code = 40860) 5.50 MG/DL Delfino Schumacher RfkihdXMXVIDM8260-18-79 00:00:00* Test Item Value Reference Range Interpretation Comme nts CALCIUM (test code = 2209) 10.6 MG/DL Delfino Schumacher WbkupjHSWJIIPTWE0345-37-73 00:00:00* Test Item Value Reference Range Interpretation Comme nts PHOSPHORUS (test code = 2227) 2.9 MG/DL Delfino Schumacher AustinINTACT [id number] 00:00:00* Test Item Value Reference Range Interpretation Comme nts INTACT PTH (test code = 5005) 60 PG/ML Delfino Schumacher AustinCALCIUM, [id number] 00:00:00* Test Item Value Reference Range Interpretation Comme nts CALCIUM, IONIZED (test code = 03893) 5.50 MG/DL Delfino Schumacher JxnuxfZQSRMNX4193-61-29 00:00:00* Test Item Value Reference Range Interpretation Comme nts CALCIUM (test code = 2209) 10.6 MG/DL Delfino Schumacher NkzzgsHKIGIPZBWF8995-64-96 00:00:00* Test Item Value Reference Range Interpretation Comme nts PHOSPHORUS (test code = 2227) 2.9 MG/DL Delfino Schumacher AustinINTACT [id number] 00:00:00* Test Item Value Reference Range Interpretation Comme nts INTACT PTH (test code = 5005) 60 PG/ML Delfino Schumacher AustinCALCIUM, [id number] 00:00:00* Test Item Value Reference Range Interpretation Comme nts CALCIUM, IONIZED (test code = 02366) 5.50 MG/DL Delfino Schumacher MhgqtuOQDZKBC8154-74-78 00:00:00* Test Item Value Reference Range Interpretation Comme nts CALCIUM (test code = 2209) 10.6 MG/DL Delfino Schumacher NvuwsnDGNXAURHPM0473-36-95 00:00:00* Test Item Value Reference Range Interpretation Comme nts PHOSPHORUS (test code = 2227) 2.9 MG/DL Delfino Schumacher AustinINTACT [id number] 00:00:00* Test Item Value Reference Range Interpretation Comme nts INTACT PTH (test code = 5005) 60 PG/ML Delfino Schumacher AustinCALCIUM, [id number] 00:00:00* Test Item Value Reference Range Interpretation Comme nts CALCIUM, IONIZED (test code = 27534) 5.50 MG/DL Delfino Schumacher HdapfqXXGVVNV9533-38-39 00:00:00* Test Item Value Reference Range Interpretation Comme nts CALCIUM (test code = 2209) 10.6 MG/DL Delfino Schumacher RupnhvMGJDBLDLDP6171-27-64 00:00:00* Test Item Value Reference Range Interpretation Comme nts PHOSPHORUS (test code = 2227) 2.9 MG/DL Delfino Schumacher AustinINTACT [id number] 00:00:00* Test Item Value Reference Range Interpretation Comme nts INTACT PTH (test code = 5005) 60 PG/ML Delfino Schumacher AustinCALCIUM, [id number] 00:00:00* Test Item Value Reference Range Interpretation Comme nts CALCIUM, IONIZED (test code = 32780) 5.50 MG/DL Delfino Schumacher SvziadPJXIMVX6320-35-28 00:00:00* Test Item Value Reference Range Interpretation Comme nts CALCIUM (test code = 2209) 10.6 MG/DL Delfino Schumacher GznhgbNAEBIRGZBX2530-21-23 00:00:00* Test Item Value Reference Range Interpretation Comme nts PHOSPHORUS (test code = 2227) 2.9 MG/DL Delfino Schumacher AustinINTACT [id number] 00:00:00* Test Item Value Reference Range Interpretation Comme nts INTACT PTH (test code = 5005) 60 PG/ML Delfino Schumacher AustinCALCIUM, [id number] 00:00:00* Test Item Value Reference Range Interpretation Comme nts CALCIUM, IONIZED (test code = 02870) 5.50 MG/DL Delfino Schumacher OjcbwbCUXBYKS7317-61-89 00:00:00* Test Item Value Reference Range Interpretation Comme nts CALCIUM (test code = 2209) 10.6 MG/DL Delfino Schumacher SoxjtiJQIHRGVUTX6047-61-32 00:00:00* Test Item Value Reference Range Interpretation Comme nts PHOSPHORUS (test code = 2227) 2.9 MG/DL Delfino Schumacher AustinINTACT [id number] 00:00:00* Test Item Value Reference Range Interpretation Comme nts INTACT PTH (test code = 5005) 60 PG/ML Delfino Schumacher AustinCALCIUM, [id number] 00:00:00* Test Item Value Reference Range Interpretation Comme nts CALCIUM, IONIZED (test code = 22926) 5.50 MG/DL Delfino Schumacher ScgbphILEZIFV9103-50-67 00:00:00* Test Item Value Reference Range Interpretation Comme nts CALCIUM (test code = 2209) 10.6 MG/DL Delfino Schumacher ZsnjqiKANZDEHGEI0411-61-27 00:00:00* Test Item Value Reference Range Interpretation Comme nts PHOSPHORUS (test code = 2227) 2.9 MG/DL Delfino Schumacher AustinINTACT [id number] 00:00:00* Test Item Value Reference Range Interpretation Comme nts INTACT PTH (test code = 5005) 60 PG/ML Delfino Schumacher AustinCALCIUM, [id number] 00:00:00* Test Item Value Reference Range Interpretation Comme nts CALCIUM, IONIZED (test code = 89918) 5.50 MG/DL Delfino Schumacher RfquuxYFDEWUP6897-87-17 00:00:00* Test Item Value Reference Range Interpretation Comme nts CALCIUM (test code = 2209) 10.6 MG/DL Delfino Schumacher MdxmquEAPPOMDOOB9279-17-31 00:00:00* Test Item Value Reference Range Interpretation Comme nts PHOSPHORUS (test code = 2227) 2.9 MG/DL Delfino Schumacher AustinINTACT [id number] 00:00:00* Test Item Value Reference Range Interpretation Comme nts INTACT PTH (test code = 5005) 60 PG/ML Delfino Schumacher AustinCALCIUM, [id number] 00:00:00* Test Item Value Reference Range Interpretation Comme nts CALCIUM, IONIZED (test code = 77839) 5.50 MG/DL Delfino Schumacher ZpfaqiMZABRLA3008-82-77 00:00:00* Test Item Value Reference Range Interpretation Comme nts CALCIUM (test code = 2209) 10.6 MG/DL Delfino Schumacher TzzkghVOLQZCAMGB1501-30-27 00:00:00* Test Item Value Reference Range Interpretation Comme nts PHOSPHORUS (test code = 2227) 2.9 MG/DL Delfino Schumacher AustinINTACT [id number] 00:00:00* Test Item Value Reference Range Interpretation Comme nts INTACT PTH (test code = 5005) 60 PG/ML Delfino Schumacher AustinCALCIUM, [id number] 00:00:00* Test Item Value Reference Range Interpretation Comme nts CALCIUM, IONIZED (test code = 00438) 5.50 MG/DL Delfino Schumacher QgitdbGAKWRED8396-07-26 00:00:00* Test Item Value Reference Range Interpretation Comme nts CALCIUM (test code = 2209) 10.6 MG/DL Delfino Schumacher AgqcttKSJUDSFLXK9374-95-36 00:00:00* Test Item Value Reference Range Interpretation Comme nts PHOSPHORUS (test code = 2227) 2.9 MG/DL Delfino Schumacher AustinINTACT [id number] 00:00:00* Test Item Value Reference Range Interpretation Comme nts INTACT PTH (test code = 5005) 60 PG/ML Delfino Schumacher AustinCALCIUM, [id number] 00:00:00* Test Item Value Reference Range Interpretation Comme nts CALCIUM, IONIZED (test code = 33159) 5.50 MG/DL Delfino Schumacher BpzaqjOPIZTVZ1725-38-40 00:00:00* Test Item Value Reference Range Interpretation Comme nts CALCIUM (test code = 2209) 10.6 MG/DL Delfino Schumacher TurzapQKFIGBSLYN2997-88-02 00:00:00* Test Item Value Reference Range Interpretation Comme nts PHOSPHORUS (test code = 2227) 2.9 MG/DL Delfino Schumacher AustinINTACT [id number] 00:00:00* Test Item Value Reference Range Interpretation Comme nts INTACT PTH (test code = 5005) 60 PG/ML Delfino Schumacher AustinCALCIUM, [id number] 00:00:00* Test Item Value Reference Range Interpretation Comme nts CALCIUM, IONIZED (test code = 00564) 5.50 MG/DL Delfino Schumacher WjmhxwJBLJAMA0860-31-62 00:00:00* Test Item Value Reference Range Interpretation Comme nts CALCIUM (test code = 2209) 10.6 MG/DL Delfino Schumacher JemccrCIPCBEBTBO1524-00-45 00:00:00* Test Item Value Reference Range Interpretation Comme nts PHOSPHORUS (test code = 2227) 2.9 MG/DL Delfino cShumacher AustinINTACT [id number] 00:00:00* Test Item Value Reference Range Interpretation Comme nts INTACT PTH (test code = 5005) 60 PG/ML Delfino Schumacher AustinCALCIUM, [id number] 00:00:00* Test Item Value Reference Range Interpretation Comme nts CALCIUM, IONIZED (test code = 95425) 5.50 MG/DL Delfino Schumacher XfcipbMVKEHEQ4714-72-60 00:00:00* Test Item Value Reference Range Interpretation Comme nts CALCIUM (test code = 2209) 10.6 MG/DL Delfino Schumacher BybzkkDFCYAACQGG9043-66-52 00:00:00* Test Item Value Reference Range Interpretation Comme nts PHOSPHORUS (test code = 2227) 2.9 MG/DL Delfino Schumacher AustinINTACT [id number] 00:00:00* Test Item Value Reference Range Interpretation Comme nts INTACT PTH (test code = 5005) 60 PG/ML Delfino Schumacher AustinCALCIUM, [id number] 00:00:00* Test Item Value Reference Range Interpretation Comme nts CALCIUM, IONIZED (test code = 36976) 5.50 MG/DL Delfino Schumacher VgqmmlACDWHMI1943-59-36 00:00:00* Test Item Value Reference Range Interpretation Comme nts CALCIUM (test code = 2209) 10.6 MG/DL Delfino Schumacher UzdtqyICIYBPONQO3946-13-59 00:00:00* Test Item Value Reference Range Interpretation Comme nts PHOSPHORUS (test code = 2227) 2.9 MG/DL Delfino Schumacher AustinINTACT [id number] 00:00:00* Test Item Value Reference Range Interpretation Comme nts INTACT PTH (test code = 5005) 60 PG/ML Delfino Schumacher AustinCALCIUM, [id number] 00:00:00* Test Item Value Reference Range Interpretation Comme nts CALCIUM, IONIZED (test code = 61360) 5.50 MG/DL Delfino Schumacher [id number] 00:00:00* Test Item Value Reference Range Interpretation Comme nts CALCIUM (test code = 2209) 10.6 MG/DL Delfino Schumacher FwwidlQVPENTSLAO1849-13-75 00:00:00* Test Item Value Reference Range Interpretation Comme nts PHOSPHORUS (test code = 2227) 2.9 MG/DL Delfino Schumacher [place]IN[place]CT [id number] 00:00:00* Test Item Value Reference Range Interpretation Comme nts INTACT PTH (test code = 5005) 60 PG/ML Delfino Schumacher AustinCALCIUM, [id number] 00:00:00* Test Item Value Reference Range Interpretation Comme nts CALCIUM, IONIZED (test code = 60690) 5.50 MG/DL Delfino Schumacher NgcddxTPKPFEU1410-68-90 00:00:00* Test Item Value Reference Range Interpretation Comme nts CALCIUM (test code = 2209) 10.6 MG/DL Delfino Schumacher ArojrfNYKAEHKRDH4893-59-55 00:00:00* Test Item Value Reference Range Interpretation Comme nts PHOSPHORUS (test code = 2227) 2.9 MG/DL Delfino Schumacher [place]IN[place] [id number] 00:00:00* Test Item Value Reference Range Interpretation Comme nts INTACT PTH (test code = 5005) 60 PG/ML Delfino Schumacher [place]IN[place]CT [id number] 00:00:00* Test Item Value Reference Range Interpretation Comme nts INTACT PTH (test code = 5005) 60 PG/ML Delfino Schumacher AustinCALCIUM, [id number] 00:00:00* Test Item Value Reference Range Interpretation Comme nts CALCIUM, IONIZED (test code = 86304) 5.50 MG/DL Delfino Schumacher AustinCULTURE, [id number] 09:25:56SPECIMEN NUMBER: [id number] CULTURE, URINE SPECIMEN NUMBER: [id number] SPECIMEN COMMENT: URINE SOURCE: URINE REPORT STATUS: FINAL FINAL REPORT: 03/09/2023 10-50,000 CFU/ML UROGENITAL KARLA PRESENT NO COMMON PATHOGENSCULTNIALL, [id number] 00:00:00* Test Item Value Reference Range Interpretation Comme nts CULTURE, URINE (test code = 60774) SPECIMEN NUMBER: [id number] Delfino Cedeño [id number] 00:00:00* Test Item Value Reference Range Interpretation Comme nts CULTURE, URINE (test code = 27723) SPECIMEN NUMBER: [id number] Delfino Cedeño [id number] 00:00:00* Test Item Value Reference Range Interpretation Comme nts CULTURE, URINE (test code = 49639) SPECIMEN NUMBER: [id number] Delfino Cedeño, [id number] 00:00:00* Test Item Value Reference Range Interpretation Comme nts CULTURE, URINE (test code = 85862) SPECIMEN NUMBER: [id number] Delfino SarmientoLTNIALL, [id number] 00:00:00* Test Item Value Reference Range Interpretation Comme nts CULTURE, URINE (test code = 37131) SPECIMEN NUMBER: [id number] Delfino Cedeño, [id number] 00:00:00* Test Item Value Reference Range Interpretation Comme nts CULTURE, URINE (test code = 96597) SPECIMEN NUMBER: [id number] Delfino SarmientoLTNIALL, [id number] 00:00:00* Test Item Value Reference Range Interpretation Comme nts CULTURE, URINE (test code = 22382) SPECIMEN NUMBER: [id number] Delfino Cedeño, [id number] 00:00:00* Test Item Value Reference Range Interpretation Comme nts CULTURE, URINE (test code = 74069) SPECIMEN NUMBER: [id number] Delfino Cedeño, [id number] 00:00:00* Test Item Value Reference Range Interpretation Comme nts CULTURE, URINE (test code = 52581) SPECIMEN NUMBER: [id number] Delfino SarmientoLTNIALL, [id number] 00:00:00* Test Item Value Reference Range Interpretation Comme nts CULTURE, URINE (test code = 03597) SPECIMEN NUMBER: [id number] Delfino Cedeño [id number] 00:00:00* Test Item Value Reference Range Interpretation Comme nts CULTURE, URINE (test code = 17165) SPECIMEN NUMBER: [id number] Delfino Cedeño [id number] 00:00:00* Test Item Value Reference Range Interpretation Comme nts CULTURE, URINE (test code = 75414) SPECIMEN NUMBER: [id number] Delfino Cedeño [id number] 00:00:00* Test Item Value Reference Range Interpretation Comme nts CULTURE, URINE (test code = 31088) SPECIMEN NUMBER: [id number] Delfino Cedeño [id number] 00:00:00* Test Item Value Reference Range Interpretation Comme nts CULTURE, URINE (test code = 74425) SPECIMEN NUMBER: [id number] Delfino Cedeño [id number] 00:00:00* Test Item Value Reference Range Interpretation Comme nts CULTURE, URINE (test code = 22995) SPECIMEN NUMBER: [id number] Delfino Cedeño [id number] 00:00:00* Test Item Value Reference Range Interpretation Comme nts CULTURE, URINE (test code = 02008) SPECIMEN NUMBER: [id number] Delfino Cedeño [id number] 00:00:00* Test Item Value Reference Range Interpretation Comme nts CULTURE, URINE (test code = 37514) SPECIMEN NUMBER: [id number] Delfino Cedeño, [id number] 00:00:00* Test Item Value Reference Range Interpretation Comme nts CULTURE, URINE (test code = 11553) SPECIMEN NUMBER: [id number] Delfino Cedeño, [id number] 00:00:00* Test Item Value Reference Range Interpretation Comme nts CULTURE, URINE (test code = 91372) SPECIMEN NUMBER: [id number] Delfino Cedeño, [id number] 00:00:00* Test Item Value Reference Range Interpretation Comme nts CULTURE, URINE (test code = 39159) SPECIMEN NUMBER: [id number] Delfino Cedeño, [id number] 00:00:00* Test Item Value Reference Range Interpretation Comme nts CULTURE, URINE (test code = 97473) SPECIMEN NUMBER: [id number] Delfino Cedeño [id number] 00:00:00* Test Item Value Reference Range Interpretation Comme nts CULTURE, URINE (test code = 97435) SPECIMEN NUMBER: [id number] Delfino Cedeño [id number] 00:00:00* Test Item Value Reference Range Interpretation Comme nts CULTURE, URINE (test code = 38343) SPECIMEN NUMBER: [id number] Delfino Cedeño [id number] 00:00:00* Test Item Value Reference Range Interpretation Comme nts CULTURE, URINE (test code = 64554) SPECIMEN NUMBER: [id number] Delfino Cedeño [id number] 00:00:00* Test Item Value Reference Range Interpretation Comme nts CULTURE, URINE (test code = 82215) SPECIMEN NUMBER: [id number] Delfino Cedeño [id number] 00:00:00* Test Item Value Reference Range Interpretation Comme nts CULTURE, URINE (test code = 51701) SPECIMEN NUMBER: [id number] Delfino Cedeño, [id number] 00:00:00* Test Item Value Reference Range Interpretation Comme nts CULTURE, URINE (test code = 72174) SPECIMEN NUMBER: [id number] Delfino Cedeño, [id number] 00:00:00* Test Item Value Reference Range Interpretation Comme nts CULTURE, URINE (test code = 22104) SPECIMEN NUMBER: [id number] Delfino Cedeño, [id number] 00:00:00* Test Item Value Reference Range Interpretation Comme nts CULTURE, URINE (test code = 64685) SPECIMEN NUMBER: [id number] Delfino Cedeño, [id number] 00:00:00* Test Item Value Reference Range Interpretation Comme nts CULTURE, URINE (test code = 77295) SPECIMEN NUMBER: [id number] Delfino Cedeño, [id number] 00:00:00* Test Item Value Reference Range Interpretation Comme nts CULTURE, URINE (test code = 60091) SPECIMEN NUMBER: [id number] Delfino Cedeño [id number] 00:00:00* Test Item Value Reference Range Interpretation Comme nts CULTURE, URINE (test code = 18281) SPECIMEN NUMBER: [id number] Delfino Cedeño, [id number] 00:00:00* Test Item Value Reference Range Interpretation Comme nts CULTURE, URINE (test code = 08850) SPECIMEN NUMBER: [id number] Delfino Cedeño, [id number] 00:00:00* Test Item Value Reference Range Interpretation Comme nts CULTURE, URINE (test code = 89335) SPECIMEN NUMBER: [id number] Delfino OrtaCOMPREHENSIVE METABOLIC [id number] 04:45:25* Test Item Value Reference Range Interpretation Comme nts GLUCOSE (test code = 2217) 87 MG/DL 70-99 BUN (test code = 2207) 32 MG/DL 8-23 H CREATININE (test code = 2214) 1.39 MG/DL 0.60-1.30 H eGFR (2020 CKD-EPI) (test co de = 84868) 43 ML/MIN/1.73 >60 L CALC BUN/CREAT (test [...] code = 2219) 32 U/L 5-40 LIPID [id number] 04:45:25* Test Item Value Reference Range Interpretation [...] SPECIMENS. FOR MOREINFORMATION, SEE CLIENT ANNOUNCEMENT AT [email or web address] RISK RATIO LDL/HDL (test code = 2238) 0.58 RATIO <3.22 UNLESS OTHERW ISE INDICATED, ALL TESTING PERFORMED AT [facility] [address] [place] [address] [employer] EXCH[employer] SERVICES MANAGER: ABBI SHORT M.D. CLIA NUMBER [id number] [facility] [place]. [id number] COMPREHENSIVE METABOLIC [id number] 00:00:00* Test Item Value Reference Range Interpretation Comme nts GLUCOSE (test code = 7) 87 MG/DL BUN (test code = 8) 32 MG/DL CREATININE (test code = 2214) 1.39 MG/DL eGFR (2020 CKD-EPI) (test co de = 04038) 43 ML/MIN/1.73 CALC BUN/CREAT (test code = [...] = 2219) 32 U/L Delfino Schumacher [place] [id number] 00:00:00* Test Item Value Reference Range Interpretation Comme nts CHOLESTEROL (test code = 2210) 187 MG/DL TRIGLYCERIDES (test code = 2232) 58 MG/DL HDL CHOLESTEROL (test code = 2220) 110 MG/DL CALC LDL CHOL (test code = 2237) 64 MG/DL RISK RATIO LDL/HDL (test cod e = 2238) 0.58 RATIO Delfino OrtaCOMPREHENSIVE METABOLIC [id number] 00:00:00* Test Item Value Reference Range Interpretation Comme nts GLUCOSE (test code = 2217) 87 MG/DL BUN (test code = 2208) 32 MG/DL CREATININE (test code = 2214) 1.39 MG/DL eGFR (2020 CKD-EPI) (test co de = 40386) 43 ML/MIN/1.73 CALC BUN/CREAT (test code = [...] = 2219) 32 U/L Delfino Schumacher [place] [id number] 00:00:00* Test Item Value Reference Range Interpretation Comme nts CHOLESTEROL (test code = 2210) 187 MG/DL TRIGLYCERIDES (test code = 2232) 58 MG/DL HDL CHOLESTEROL (test code = 2220) 110 MG/DL CALC LDL CHOL (test code = 2237) 64 MG/DL RISK RATIO LDL/HDL (test cod e = 2238) 0.58 RATIO Delfino OrtaCOMPREHENSIVE METABOLIC [id number] 00:00:00* Test Item Value Reference Range Interpretation Comme nts GLUCOSE (test code = 2217) 87 MG/DL BUN (test code = 2208) 32 MG/DL CREATININE (test code = 2214) 1.39 MG/DL eGFR (2020 CKD-EPI) (test co de = 57384) 43 ML/MIN/1.73 CALC BUN/CREAT (test code = [...] = 2219) 32 U/L Delfino OrtaCOMPREHENSIVE METABOLIC [id number] 00:00:00* Test Item Value Reference Range Interpretation Comme nts GLUCOSE (test code = 2217) 87 MG/DL BUN (test code = 2208) 32 MG/DL CREATININE (test code = 2214) 1.39 MG/DL eGFR (2020 CKD-EPI) (test co de = 06125) 43 ML/MIN/1.73 CALC BUN/CREAT (test code = [...] code = 2219) 32 U/L Delfino OrtaLIPID [id number] 00:00:00* Test Item Value Reference Range Interpretation Comme nts CHOLESTEROL (test code = 2210) 187 MG/DL TRIGLYCERIDES (test code = 2232) 58 MG/DL HDL CHOLESTEROL (test code = 2220) 110 MG/DL CALC LDL CHOL (test code = 2237) 64 MG/DL RISK RATIO LDL/HDL (test cod e = 2238) 0.58 RATIO Delfino OrtaCOMPREHENSIVE METABOLIC [id number] 00:00:00* Test Item Value Reference Range Interpretation Comme nts GLUCOSE (test code = 2217) 87 MG/DL BUN (test code = 2208) 32 MG/DL CREATININE (test code = 2214) 1.39 MG/DL eGFR (2020 CKD-EPI) (test co de = 10474) 43 ML/MIN/1.73 CALC BUN/CREAT (test code = [...] code = 2219) 32 U/L Delfino OrtaLIPID [id number] 00:00:00* Test Item Value Reference Range Interpretation Comme nts CHOLESTEROL (test code = 2210) 187 MG/DL TRIGLYCERIDES (test code = 2232) 58 MG/DL HDL CHOLESTEROL (test code = 2220) 110 MG/DL CALC LDL CHOL (test code = 2237) 64 MG/DL RISK RATIO LDL/HDL (test cod e = 2238) 0.58 RATIO Delfino OrtaCOMPREHENSIVE METABOLIC [id number] 00:00:00* Test Item Value Reference Range Interpretation Comme nts GLUCOSE (test code = 2217) 87 MG/DL BUN (test code = 2208) 32 MG/DL CREATININE (test code = 2214) 1.39 MG/DL eGFR (2020 CKD-EPI) (test co de = 12863) 43 ML/MIN/1.73 CALC BUN/CREAT (test code = [...] = 2219) 32 U/L Delfino Schumacher [place] [id number] 00:00:00* Test Item Value Reference Range Interpretation Comme nts CHOLESTEROL (test code = 2210) 187 MG/DL TRIGLYCERIDES (test code = 2232) 58 MG/DL HDL CHOLESTEROL (test code = 2220) 110 MG/DL CALC LDL CHOL (test code = 2237) 64 MG/DL RISK RATIO LDL/HDL (test cod e = 2238) 0.58 RATIO Delfino Schumacher [place] [id number] 00:00:00* Test Item Value Reference Range Interpretation Comme nts CHOLESTEROL (test code = 2210) 187 MG/DL TRIGLYCERIDES (test code = 2232) 58 MG/DL HDL CHOLESTEROL (test code = 2220) 110 MG/DL CALC LDL CHOL (test code = 2237) 64 MG/DL RISK RATIO LDL/HDL (test cod e = 2238) 0.58 RATIO Delfino Schumacher AustinCOMPREHENSIVE METABOLIC [id number] 00:00:00* Test Item Value Reference Range Interpretation Comme nts GLUCOSE (test code = 2217) 87 MG/DL BUN (test code = 2208) 32 MG/DL CREATININE (test code = 2214) 1.39 MG/DL eGFR (2020 CKD-EPI) (test co de = 42480) 43 ML/MIN/1.73 CALC BUN/CREAT (test code = [...] code = 2219) 32 U/L Delfino OrtaLIPID [id number] 00:00:00* Test Item Value Reference Range Interpretation Comme nts CHOLESTEROL (test code = 2210) 187 MG/DL TRIGLYCERIDES (test code = 2232) 58 MG/DL HDL CHOLESTEROL (test code = 2220) 110 MG/DL CALC LDL CHOL (test code = 2237) 64 MG/DL RISK RATIO LDL/HDL (test cod e = 2238) 0.58 RATIO Delfino OrtaCOMPREHENSIVE METABOLIC [id number] 00:00:00* Test Item Value Reference Range Interpretation Comme nts GLUCOSE (test code = 2217) 87 MG/DL BUN (test code = 2208) 32 MG/DL CREATININE (test code = 2214) 1.39 MG/DL eGFR (2020 CKD-EPI) (test co de = 18193) 43 ML/MIN/1.73 CALC BUN/CREAT (test code = [...] code = 2219) 32 U/L Delfino OrtaLIPID [id number] 00:00:00* Test Item Value Reference Range Interpretation Comme nts CHOLESTEROL (test code = 2210) 187 MG/DL TRIGLYCERIDES (test code = 2232) 58 MG/DL HDL CHOLESTEROL (test code = 2220) 110 MG/DL CALC LDL CHOL (test code = 2237) 64 MG/DL RISK RATIO LDL/HDL (test cod e = 2238) 0.58 RATIO Delfino OrtaCOMPREHENSIVE METABOLIC [id number] 00:00:00* Test Item Value Reference Range Interpretation Comme nts GLUCOSE (test code = 2217) 87 MG/DL BUN (test code = 2208) 32 MG/DL CREATININE (test code = 2214) 1.39 MG/DL eGFR (2020 CKD-EPI) (test co de = 98278) 43 ML/MIN/1.73 CALC BUN/CREAT (test code = [...] code = 2219) 32 U/L Delfino Schumacher [place] [id number] 00:00:00* Test Item Value Reference Range Interpretation Comme nts CHOLESTEROL (test code = 2210) 187 MG/DL TRIGLYCERIDES (test code = 2232) 58 MG/DL HDL CHOLESTEROL (test code = 2220) 110 MG/DL CALC LDL CHOL (test code = 2237) 64 MG/DL RISK RATIO LDL/HDL (test cod e = 2238) 0.58 RATIO Delfino OrtaCOMPREHENSIVE METABOLIC [id number] 00:00:00* Test Item Value Reference Range Interpretation Comme nts GLUCOSE (test code = 2217) 87 MG/DL BUN (test code = 2208) 32 MG/DL CREATININE (test code = 2214) 1.39 MG/DL eGFR (2020 CKD-EPI) (test co de = 81156) 43 ML/MIN/1.73 CALC BUN/CREAT (test code = [...] code = 2219) 32 U/L Delfino OrtaLIPID [id number] 00:00:00* Test Item Value Reference Range Interpretation Comme nts CHOLESTEROL (test code = 2210) 187 MG/DL TRIGLYCERIDES (test code = 2232) 58 MG/DL HDL CHOLESTEROL (test code = 2220) 110 MG/DL CALC LDL CHOL (test code = 2237) 64 MG/DL RISK RATIO LDL/HDL (test cod e = 2238) 0.58 RATIO Delfino OrtaCOMPREHENSIVE METABOLIC [id number] 00:00:00* Test Item Value Reference Range Interpretation Comme nts GLUCOSE (test code = 2217) 87 MG/DL BUN (test code = 2208) 32 MG/DL CREATININE (test code = 2214) 1.39 MG/DL eGFR (2020 CKD-EPI) (test co de = 62160) 43 ML/MIN/1.73 CALC BUN/CREAT (test code = [...] code = 2219) 32 U/L Delfino OrtaLIPID [id number] 00:00:00* Test Item Value Reference Range Interpretation Comme nts CHOLESTEROL (test code = 2210) 187 MG/DL TRIGLYCERIDES (test code = 2232) 58 MG/DL HDL CHOLESTEROL (test code = 2220) 110 MG/DL CALC LDL CHOL (test code = 2237) 64 MG/DL RISK RATIO LDL/HDL (test cod e = 2238) 0.58 RATIO Delfino OrtaCOMPREHENSIVE METABOLIC [id number] 00:00:00* Test Item Value Reference Range Interpretation Comme nts GLUCOSE (test code = 2217) 87 MG/DL BUN (test code = 2208) 32 MG/DL CREATININE (test code = 2214) 1.39 MG/DL eGFR (2020 CKD-EPI) (test co de = 71014) 43 ML/MIN/1.73 CALC BUN/CREAT (test code = [...] code = 2219) 32 U/L Delfino OrtaLIPID [id number] 00:00:00* Test Item Value Reference Range Interpretation Comme nts CHOLESTEROL (test code = 2210) 187 MG/DL TRIGLYCERIDES (test code = 2232) 58 MG/DL HDL CHOLESTEROL (test code = 2220) 110 MG/DL CALC LDL CHOL (test code = 2237) 64 MG/DL RISK RATIO LDL/HDL (test cod e = 2238) 0.58 RATIO Delfino Schumacher AustinCOMPREHENSIVE METABOL[place] [id number] 00:00:00* Test Item Value Reference Range Interpretation Comme nts GLUCOSE (test code = 2217) 87 MG/DL BUN (test code = 2208) 32 MG/DL CREATININE (test code = 2214) 1.39 MG/DL eGFR (2020 CKD-EPI) (test co de = 24096) 43 ML/MIN/1.73 CALC BUN/CREAT (test code = [...] code = 2219) 32 U/L Delfino OrtaLIPID [id number] 00:00:00* Test Item Value Reference Range Interpretation Comme nts CHOLESTEROL (test code = 2210) 187 MG/DL TRIGLYCERIDES (test code = 2232) 58 MG/DL HDL CHOLESTEROL (test code = 2220) 110 MG/DL CALC LDL CHOL (test code = 2237) 64 MG/DL RISK RATIO LDL/HDL (test cod e = 2238) 0.58 RATIO Delfino OrtaCOMPREHENSIVE METABOLIC [id number] 00:00:00* Test Item Value Reference Range Interpretation Comme nts GLUCOSE (test code = 2217) 87 MG/DL BUN (test code = 2208) 32 MG/DL CREATININE (test code = 2214) 1.39 MG/DL eGFR (2020 CKD-EPI) (test co de = 23052) 43 ML/MIN/1.73 CALC BUN/CREAT (test code = [...] = 2219) 32 U/L Delfino Schumacher [place] [id number] 00:00:00* Test Item Value Reference Range Interpretation Comme nts CHOLESTEROL (test code = 2210) 187 MG/DL TRIGLYCERIDES (test code = 2232) 58 MG/DL HDL CHOLESTEROL (test code = 2220) 110 MG/DL CALC LDL CHOL (test code = 2237) 64 MG/DL RISK RATIO LDL/HDL (test cod e = 2238) 0.58 RATIO Delfino OrtaCOMPREHENSIVE METABOLIC [id number] 00:00:00* Test Item Value Reference Range Interpretation Comme nts GLUCOSE (test code = 2217) 87 MG/DL BUN (test code = 2208) 32 MG/DL CREATININE (test code = 2214) 1.39 MG/DL eGFR (2020 CKD-EPI) (test co de = 22575) 43 ML/MIN/1.73 CALC BUN/CREAT (test code = [...] = 2219) 32 U/L Delfino Schumacher [place] [id number] 00:00:00* Test Item Value Reference Range Interpretation Comme nts CHOLESTEROL (test code = 2210) 187 MG/DL TRIGLYCERIDES (test code = 2232) 58 MG/DL HDL CHOLESTEROL (test code = 2220) 110 MG/DL CALC LDL CHOL (test code = 2237) 64 MG/DL RISK RATIO LDL/HDL (test cod e = 2238) 0.58 RATIO Delfino OrtaCOMPREHENSIVE METABOLIC [id number] 00:00:00* Test Item Value Reference Range Interpretation Comme nts GLUCOSE (test code = 2217) 87 MG/DL BUN (test code = 2208) 32 MG/DL CREATININE (test code = 2214) 1.39 MG/DL eGFR (2020 CKD-EPI) (test co de = 20021) 43 ML/MIN/1.73 CALC BUN/CREAT (test code = [...] = 2219) 32 U/L Delfino Schumacher [place] [id number] 00:00:00* Test Item Value Reference Range Interpretation Comme nts CHOLESTEROL (test code = 2210) 187 MG/DL TRIGLYCERIDES (test code = 2232) 58 MG/DL HDL CHOLESTEROL (test code = 2220) 110 MG/DL CALC LDL CHOL (test code = 2237) 64 MG/DL RISK RATIO LDL/HDL (test cod e = 2238) 0.58 RATIO Delfino OrtaCOMPREHENSIVE METABOLIC [id number] 00:00:00* Test Item Value Reference Range Interpretation Comme nts GLUCOSE (test code = 2217) 87 MG/DL BUN (test code = 2208) 32 MG/DL CREATININE (test code = 2214) 1.39 MG/DL eGFR (2020 CKD-EPI) (test co de = 87486) 43 ML/MIN/1.73 CALC BUN/CREAT (test code = [...] code = 2219) 32 U/L Delfino Endy [place] [id number] 00:00:00* Test Item Value Reference Range Interpretation Comme nts CHOLESTEROL (test code = 2210) 187 MG/DL TRIGLYCERIDES (test code = 2232) 58 MG/DL HDL CHOLESTEROL (test code = 2220) 110 MG/DL CALC LDL CHOL (test code = 2237) 64 MG/DL RISK RATIO LDL/HDL (test cod e = 2238) 0.58 RATIO Delfino Schumacher YouCOMPREHENSIVE METABOLIC [id number] 00:00:00* Test Item Value Reference Range Interpretation Comme nts GLUCOSE (test code = 2217) 87 MG/DL BUN (test code = 2208) 32 MG/DL CREATININE (test code = 2214) 1.39 MG/DL eGFR (2020 CKD-EPI) (test co de = 51495) 43 ML/MIN/1.73 CALC BUN/CREAT (test code = [...] code = 2219) 32 U/L Delfino OrtaLIPID [id number] 00:00:00* Test Item Value Reference Range Interpretation Comme nts CHOLESTEROL (test code = 2210) 187 MG/DL TRIGLYCERIDES (test code = 2232) 58 MG/DL HDL CHOLESTEROL (test code = 2220) 110 MG/DL CALC LDL CHOL (test code = 2237) 64 MG/DL RISK RATIO LDL/HDL (test cod e = 2238) 0.58 RATIO Delfino OrtaCOMPREHENSIVE METABOLIC [id number] 00:00:00* Test Item Value Reference Range Interpretation Comme nts GLUCOSE (test code = 2217) 87 MG/DL BUN (test code = 2208) 32 MG/DL CREATININE (test code = 2214) 1.39 MG/DL eGFR (2020 CKD-EPI) (test co de = 50732) 43 ML/MIN/1.73 CALC BUN/CREAT (test code = [...] code = 2219) 32 U/L Delfino OrtaLIPID [id number] 00:00:00* Test Item Value Reference Range Interpretation Comme nts CHOLESTEROL (test code = 2210) 187 MG/DL TRIGLYCERIDES (test code = 2232) 58 MG/DL HDL CHOLESTEROL (test code = 2220) 110 MG/DL CALC LDL CHOL (test code = 2237) 64 MG/DL RISK RATIO LDL/HDL (test cod e = 2238) 0.58 RATIO Delfino OrtaCOMPREHENSIVE METABOLIC [id number] 00:00:00* Test Item Value Reference Range Interpretation Comme nts GLUCOSE (test code = 2217) 87 MG/DL BUN (test code = 2208) 32 MG/DL CREATININE (test code = 2214) 1.39 MG/DL eGFR (2020 CKD-EPI) (test co de = 47266) 43 ML/MIN/1.73 CALC BUN/CREAT (test code = [...] = 2219) 32 U/L Delfino Schumacher [place] [id number] 00:00:00* Test Item Value Reference Range Interpretation Comme nts CHOLESTEROL (test code = 2210) 187 MG/DL TRIGLYCERIDES (test code = 2232) 58 MG/DL HDL CHOLESTEROL (test code = 2220) 110 MG/DL CALC LDL CHOL (test code = 2237) 64 MG/DL RISK RATIO LDL/HDL (test cod e = 2238) 0.58 RATIO Delfino OrtaCOMPREHENSIVE METABOLIC [id number] 00:00:00* Test Item Value Reference Range Interpretation Comme nts GLUCOSE (test code = 2217) 87 MG/DL BUN (test code = 2208) 32 MG/DL CREATININE (test code = 2214) 1.39 MG/DL eGFR (2020 CKD-EPI) (test co de = 98192) 43 ML/MIN/1.73 CALC BUN/CREAT (test code = [...] code = 2219) 32 U/L Delfino Schumacher [place] [id number] 00:00:00* Test Item Value Reference Range Interpretation Comme nts CHOLESTEROL (test code = 2210) 187 MG/DL TRIGLYCERIDES (test code = 2232) 58 MG/DL HDL CHOLESTEROL (test code = 2220) 110 MG/DL CALC LDL CHOL (test code = 2237) 64 MG/DL RISK RATIO LDL/HDL (test cod e = 2238) 0.58 RATIO Delfino F YouCOMPREHENSIVE METABOLIC [id number] 00:00:00* Test Item Value Reference Range Interpretation Comme nts GLUCOSE (test code = 2217) 87 MG/DL BUN (test code = 2208) 32 MG/DL CREATININE (test code = 2214) 1.39 MG/DL eGFR (2020 CKD-EPI) (test co de = 00260) 43 ML/MIN/1.73 CALC BUN/CREAT (test code = [...] code = 2219) 32 U/L Delfino Schumacher [place] [id number] 00:00:00* Test Item Value Reference Range Interpretation Comme nts CHOLESTEROL (test code = 2210) 187 MG/DL TRIGLYCERIDES (test code = 2232) 58 MG/DL HDL CHOLESTEROL (test code = 2220) 110 MG/DL CALC LDL CHOL (test code = 2237) 64 MG/DL RISK RATIO LDL/HDL (test cod e = 2238) 0.58 RATIO Delfino OrtaCOMPREHENSIVE METABOLIC [id number] 00:00:00* Test Item Value Reference Range Interpretation Comme nts GLUCOSE (test code = 2217) 87 MG/DL BUN (test code = 2208) 32 MG/DL CREATININE (test code = 2214) 1.39 MG/DL eGFR (2020 CKD-EPI) (test co de = 62833) 43 ML/MIN/1.73 CALC BUN/CREAT (test code = [...] code = 2219) 32 U/L Delfino OrtaLIPID [id number] 00:00:00* Test Item Value Reference Range Interpretation Comme nts CHOLESTEROL (test code = 2210) 187 MG/DL TRIGLYCERIDES (test code = 2232) 58 MG/DL HDL CHOLESTEROL (test code = 2220) 110 MG/DL CALC LDL CHOL (test code = 2237) 64 MG/DL RISK RATIO LDL/HDL (test cod e = 2238) 0.58 RATIO Delfino Schumacher AustinCOMPREHENSIVE METABOL[place] [id number] 00:00:00* Test Item Value Reference Range Interpretation Comme nts GLUCOSE (test code = 2217) 87 MG/DL BUN (test code = 2208) 32 MG/DL CREATININE (test code = 2214) 1.39 MG/DL eGFR (2020 CKD-EPI) (test co de = 96722) 43 ML/MIN/1.73 CALC BUN/CREAT (test code = [...] = 2219) 32 U/L Delfino Schumacher [place] [id number] 00:00:00* Test Item Value Reference Range Interpretation Comme nts CHOLESTEROL (test code = 2210) 187 MG/DL TRIGLYCERIDES (test code = 2232) 58 MG/DL HDL CHOLESTEROL (test code = 2220) 110 MG/DL CALC LDL CHOL (test code = 2237) 64 MG/DL RISK RATIO LDL/HDL (test cod e = 2238) 0.58 RATIO Delfino OrtaCOMPREHENSIVE METABOLIC [id number] 00:00:00* Test Item Value Reference Range Interpretation Comme nts GLUCOSE (test code = 2217) 87 MG/DL BUN (test code = 2208) 32 MG/DL CREATININE (test code = 2214) 1.39 MG/DL eGFR (2020 CKD-EPI) (test co de = 41890) 43 ML/MIN/1.73 CALC BUN/CREAT (test code = [...] = 2219) 32 U/L Delfino Schumacher [place] [id number] 00:00:00* Test Item Value Reference Range Interpretation Comme nts CHOLESTEROL (test code = 2210) 187 MG/DL TRIGLYCERIDES (test code = 2232) 58 MG/DL HDL CHOLESTEROL (test code = 2220) 110 MG/DL CALC LDL CHOL (test code = 2237) 64 MG/DL RISK RATIO LDL/HDL (test cod e = 2238) 0.58 RATIO Delfino Schumacher [place] [id number] 00:00:00* Test Item Value Reference Range Interpretation Comme nts GLUCOSE (test code = 2217) 87 MG/DL BUN (test code = 2208) 32 MG/DL CREATININE (test code = 2214) 1.39 MG/DL eGFR (2020 CKD-EPI) (test co de = 19493) 43 ML/MIN/1.73 CALC BUN/CREAT (test code = [...] code = 2219) 32 U/L Delfino OrtaLIPID [id number] 00:00:00* Test Item Value Reference Range Interpretation Comme nts CHOLESTEROL (test code = 2210) 187 MG/DL TRIGLYCERIDES (test code = 2232) 58 MG/DL HDL CHOLESTEROL (test code = 2220) 110 MG/DL CALC LDL CHOL (test code = 2237) 64 MG/DL RISK RATIO LDL/HDL (test cod e = 2238) 0.58 RATIO Delfino OrtaCOMPREHENSIVE METABOLIC [id number] 00:00:00* Test Item Value Reference Range Interpretation Comme nts GLUCOSE (test code = 2217) 87 MG/DL BUN (test code = 2208) 32 MG/DL CREATININE (test code = 2214) 1.39 MG/DL eGFR (2020 CKD-EPI) (test co de = 17914) 43 ML/MIN/1.73 CALC BUN/CREAT (test code = [...] code = 2219) 32 U/L Delfino OrtaLIPID [id number] 00:00:00* Test Item Value Reference Range Interpretation Comme nts CHOLESTEROL (test code = 2210) 187 MG/DL TRIGLYCERIDES (test code = 2232) 58 MG/DL HDL CHOLESTEROL (test code = 2220) 110 MG/DL CALC LDL CHOL (test code = 2237) 64 MG/DL RISK RATIO LDL/HDL (test cod e = 2238) 0.58 RATIO Delfino OrtaCOMPREHENSIVE METABOLIC [id number] 00:00:00* Test Item Value Reference Range Interpretation Comme nts GLUCOSE (test code = 2217) 87 MG/DL BUN (test code = 2208) 32 MG/DL CREATININE (test code = 2214) 1.39 MG/DL eGFR (2020 CKD-EPI) (test co de = 99999) 43 ML/MIN/1.73 CALC BUN/CREAT (test code = [...] code = 2219) 32 U/L Delfino OrtaLIPID [id number] 00:00:00* Test Item Value Reference Range Interpretation Comme nts CHOLESTEROL (test code = 2210) 187 MG/DL TRIGLYCERIDES (test code = 2232) 58 MG/DL HDL CHOLESTEROL (test code = 2220) 110 MG/DL CALC LDL CHOL (test code = 2237) 64 MG/DL RISK RATIO LDL/HDL (test cod e = 2238) 0.58 RATIO Delfino Schumacher [place] [id number] 00:00:00* Test Item Value Reference Range Interpretation Comme nts GLUCOSE (test code = 2217) 87 MG/DL BUN (test code = 2208) 32 MG/DL CREATININE (test code = 2214) 1.39 MG/DL eGFR (2020 CKD-EPI) (test co de = 35012) 43 ML/MIN/1.73 CALC BUN/CREAT (test code = [...] = 2219) 32 U/L Delfino Schumacher [place] [id number] 00:00:00* Test Item Value Reference Range Interpretation Comme nts CHOLESTEROL (test code = 2210) 187 MG/DL TRIGLYCERIDES (test code = 2232) 58 MG/DL HDL CHOLESTEROL (test code = 2220) 110 MG/DL CALC LDL CHOL (test code = 2237) 64 MG/DL RISK RATIO LDL/HDL (test cod e = 2238) 0.58 RATIO Delfino Schumacher AustinCOMPREHENSIVE METABOLIC [id number] 00:00:00* Test Item Value Reference Range Interpretation Comme nts GLUCOSE (test code = 2217) 87 MG/DL BUN (test code = 2208) 32 MG/DL CREATININE (test code = 2214) 1.39 MG/DL eGFR (2020 CKD-EPI) (test co de = 82366) 43 ML/MIN/1.73 CALC BUN/CREAT (test code = [...] code = 2219) 32 U/L Delfino OrtaLIPID [id number] 00:00:00* Test Item Value Reference Range Interpretation Comme nts CHOLESTEROL (test code = 2210) 187 MG/DL TRIGLYCERIDES (test code = 2232) 58 MG/DL HDL CHOLESTEROL (test code = 2220) 110 MG/DL CALC LDL CHOL (test code = 2237) 64 MG/DL RISK RATIO LDL/HDL (test cod e = 2238) 0.58 RATIO Delfino Schumacher YouCOMPREHENSIVE METABOLIC [id number] 00:00:00* Test Item Value Reference Range Interpretation Comme nts GLUCOSE (test code = 2217) 87 MG/DL BUN (test code = 2208) 32 MG/DL CREATININE (test code = 2214) 1.39 MG/DL eGFR (2020 CKD-EPI) (test co de = 36571) 43 ML/MIN/1.73 CALC BUN/CREAT (test code = [...] code = 2219) 32 U/L Delfino OrtaLIPID [id number] 00:00:00* Test Item Value Reference Range Interpretation Comme nts CHOLESTEROL (test code = 2210) 187 MG/DL TRIGLYCERIDES (test code = 2232) 58 MG/DL HDL CHOLESTEROL (test code = 2220) 110 MG/DL CALC LDL CHOL (test code = 2237) 64 MG/DL RISK RATIO LDL/HDL (test cod e = 2238) 0.58 RATIO Delfino OrtaCOMPREHENSIVE METABOLIC [id number] 00:00:00* Test Item Value Reference Range Interpretation Comme nts GLUCOSE (test code = 2217) 87 MG/DL BUN (test code = 2208) 32 MG/DL CREATININE (test code = 2214) 1.39 MG/DL eGFR (2020 CKD-EPI) (test co de = 87325) 43 ML/MIN/1.73 CALC BUN/CREAT (test code = [...] = 2219) 32 U/L Delfino Schumacher [place] [id number] 00:00:00* Test Item Value Reference Range Interpretation Comme nts CHOLESTEROL (test code = 2210) 187 MG/DL TRIGLYCERIDES (test code = 2232) 58 MG/DL HDL CHOLESTEROL (test code = 2220) 110 MG/DL CALC LDL CHOL (test code = 2237) 64 MG/DL RISK RATIO LDL/HDL (test cod e = 2238) 0.58 RATIO Delfino OrtaCOMPREHENSIVE METABOLIC [id number] 00:00:00* Test Item Value Reference Range Interpretation Comme nts GLUCOSE (test code = 2217) 87 MG/DL BUN (test code = 2208) 32 MG/DL CREATININE (test code = 2214) 1.39 MG/DL eGFR (2020 CKD-EPI) (test co de = 88835) 43 ML/MIN/1.73 CALC BUN/CREAT (test code = [...] = 2219) 32 U/L Delfino Schumacher [place] [id number] 00:00:00* Test Item Value Reference Range Interpretation Comme nts CHOLESTEROL (test code = 2210) 187 MG/DL TRIGLYCERIDES (test code = 2232) 58 MG/DL HDL CHOLESTEROL (test code = 2220) 110 MG/DL CALC LDL CHOL (test code = 2237) 64 MG/DL RISK RATIO LDL/HDL (test cod e = 2238) 0.58 RATIO Delfino OrtaCOMPREHENSIVE METABOLIC [id number] 00:00:00* Test Item Value Reference Range Interpretation Comme nts GLUCOSE (test code = 2217) 87 MG/DL BUN (test code = 2208) 32 MG/DL CREATININE (test code = 2214) 1.39 MG/DL eGFR (2020 CKD-EPI) (test co de = 31890) 43 ML/MIN/1.73 CALC BUN/CREAT (test code = [...] code = 2219) 32 U/L Delfino Endy [place] [id number] 00:00:00* Test Item Value Reference Range Interpretation Comme nts CHOLESTEROL (test code = 2210) 187 MG/DL TRIGLYCERIDES (test code = 2232) 58 MG/DL HDL CHOLESTEROL (test code = 2220) 110 MG/DL CALC LDL CHOL (test code = 2237) 64 MG/DL RISK RATIO LDL/HDL (test cod e = 2238) 0.58 RATIO Delfino Schumacher YouCOMPREHENSIVE METABOLIC [id number] 00:00:00* Test Item Value Reference Range Interpretation Comme nts GLUCOSE (test code = 2217) 74 MG/DL BUN (test code = 2208) 16 MG/DL CREATININE (test code = 2214) 0.96 MG/DL eGFR (2020 CKD-EPI) (test co de = 27491) 69 ML/MIN/1.73 CALC BUN/CREAT (test code = [...] (test code = 2219) 13 U/L LIPID [id number] 00:00:00* Test Item Value Reference Range Interpretation Comme nts CHOLESTEROL (test code = 2210) 183 MG/DL TRIGLYCERIDES (test code = 2232) 69 MG/DL HDL CHOLESTEROL (test code = 2220) 93 MG/DL CALC LDL CHOL (test code = 2237) 75 MG/DL RISK RATIO LDL/HDL (test cod e = 2238) 0.81 RATIO LIPID [id number] 00:00:00* Test Item Value Reference Range Interpretation Comme nts CHOLESTEROL (test code = 2210) 183 MG/DL TRIGLYCERIDES (test code = 2232) 69 MG/DL HDL CHOLESTEROL (test code = 2220) 93 MG/DL CALC LDL CHOL (test code = 2237) 75 MG/DL RISK RATIO LDL/HDL (test cod e = 2238) 0.81 RATIO Delfino F AustinCOMPREHENSIVE METABOLIC [id number] 00:00:00* Test Item Value Reference Range Interpretation Comme nts GLUCOSE (test code = 2217) 74 MG/DL BUN (test code = 2208) 16 MG/DL CREATININE (test code = 2214) 0.96 MG/DL eGFR (2020 CKD-EPI) (test co de = 06448) 69 ML/MIN/1.73 CALC BUN/CREAT (test code = [...] = 2219) 13 U/L Delfino OrtaCOMPREHENSIVE METABOLIC [id number] 00:00:00* Test Item Value Reference Range Interpretation Comme nts GLUCOSE (test code = 2217) 74 MG/DL BUN (test code = 2208) 16 MG/DL CREATININE (test code = 2214) 0.96 MG/DL eGFR (2020 CKD-EPI) (test co de = 33381) 69 ML/MIN/1.73 CALC BUN/CREAT (test code = [...] = 2219) 13 U/L Delfino Schumacher [place] [id number] 00:00:00* Test Item Value Reference Range Interpretation Comme nts CHOLESTEROL (test code = 2210) 183 MG/DL TRIGLYCERIDES (test code = 2232) 69 MG/DL HDL CHOLESTEROL (test code = 2220) 93 MG/DL CALC LDL CHOL (test code = 2237) 75 MG/DL RISK RATIO LDL/HDL (test cod e = 2238) 0.81 RATIO Delfino Schumacher AustinCOMPREHENSIVE METABOLIC [id number] 00:00:00* Test Item Value Reference Range Interpretation Comme nts GLUCOSE (test code = 2217) 74 MG/DL BUN (test code = 2208) 16 MG/DL CREATININE (test code = 2214) 0.96 MG/DL eGFR (2020 CKD-EPI) (test co de = 81013) 69 ML/MIN/1.73 CALC BUN/CREAT (test code = [...] = 2219) 13 U/L Delfino Schumacher [place] [id number] 00:00:00* Test Item Value Reference Range Interpretation Comme nts CHOLESTEROL (test code = 2210) 183 MG/DL TRIGLYCERIDES (test code = 2232) 69 MG/DL HDL CHOLESTEROL (test code = 2220) 93 MG/DL CALC LDL CHOL (test code = 2237) 75 MG/DL RISK RATIO LDL/HDL (test cod e = 2238) 0.81 RATIO Delfino Schumacher [place] [id number] 00:00:00* Test Item Value Reference Range Interpretation Comme nts CHOLESTEROL (test code = 2210) 183 MG/DL TRIGLYCERIDES (test code = 2232) 69 MG/DL HDL CHOLESTEROL (test code = 2220) 93 MG/DL CALC LDL CHOL (test code = 2237) 75 MG/DL RISK RATIO LDL/HDL (test cod e = 2238) 0.81 RATIO Delfino Schumacher AustinCOMPREHENSIVE METABOLIC [id number] 00:00:00* Test Item Value Reference Range Interpretation Comme nts GLUCOSE (test code = 2217) 74 MG/DL BUN (test code = 2208) 16 MG/DL CREATININE (test code = 2214) 0.96 MG/DL eGFR (2020 CKD-EPI) (test co de = 49499) 69 ML/MIN/1.73 CALC BUN/CREAT (test code = [...] code = 2219) 13 U/L Delfino Schumacher [place] [id number] 00:00:00* Test Item Value Reference Range Interpretation Comme nts CHOLESTEROL (test code = 2210) 183 MG/DL TRIGLYCERIDES (test code = 2232) 69 MG/DL HDL CHOLESTEROL (test code = 2220) 93 MG/DL CALC LDL CHOL (test code = 2237) 75 MG/DL RISK RATIO LDL/HDL (test cod e = 2238) 0.81 RATIO Delfino Schumacher YouCOMPREHENSIVE METABOLIC [id number] 00:00:00* Test Item Value Reference Range Interpretation Comme nts GLUCOSE (test code = 2217) 74 MG/DL BUN (test code = 2208) 16 MG/DL CREATININE (test code = 2214) 0.96 MG/DL eGFR (2020 CKD-EPI) (test co de = 45323) 69 ML/MIN/1.73 CALC BUN/CREAT (test code = [...] = 2219) 13 U/L Delfino Schumacher [place] [id number] 00:00:00* Test Item Value Reference Range Interpretation Comme nts CHOLESTEROL (test code = 2210) 183 MG/DL TRIGLYCERIDES (test code = 2232) 69 MG/DL HDL CHOLESTEROL (test code = 2220) 93 MG/DL CALC LDL CHOL (test code = 2237) 75 MG/DL RISK RATIO LDL/HDL (test cod e = 2238) 0.81 RATIO Delfino OrtaCOMPREHENSIVE METABOLIC [id number] 00:00:00* Test Item Value Reference Range Interpretation Comme nts GLUCOSE (test code = 2217) 74 MG/DL BUN (test code = 2208) 16 MG/DL CREATININE (test code = 2214) 0.96 MG/DL eGFR (2020 CKD-EPI) (test co de = 05819) 69 ML/MIN/1.73 CALC BUN/CREAT (test code = [...] = 2219) 13 U/L Delfino Schumacher [place] [id number] 00:00:00* Test Item Value Reference Range Interpretation Comme nts CHOLESTEROL (test code = 2210) 183 MG/DL TRIGLYCERIDES (test code = 2232) 69 MG/DL HDL CHOLESTEROL (test code = 2220) 93 MG/DL CALC LDL CHOL (test code = 2237) 75 MG/DL RISK RATIO LDL/HDL (test cod e = 2238) 0.81 RATIO Delfino Schumacher AustinCOMPREHENSIVE METABOLIC [id number] 00:00:00* Test Item Value Reference Range Interpretation Comme nts GLUCOSE (test code = 2217) 74 MG/DL BUN (test code = 2208) 16 MG/DL CREATININE (test code = 2214) 0.96 MG/DL eGFR (2020 CKD-EPI) (test co de = 41422) 69 ML/MIN/1.73 CALC BUN/CREAT (test code = [...] = 2219) 13 U/L Delfino Schumacher [place] [id number] 00:00:00* Test Item Value Reference Range Interpretation Comme nts CHOLESTEROL (test code = 2210) 183 MG/DL TRIGLYCERIDES (test code = 2232) 69 MG/DL HDL CHOLESTEROL (test code = 2220) 93 MG/DL CALC LDL CHOL (test code = 2237) 75 MG/DL RISK RATIO LDL/HDL (test cod e = 2238) 0.81 RATIO Delfino Schumacher AustinCOMPREHENSIVE METABOLIC [id number] 00:00:00* Test Item Value Reference Range Interpretation Comme nts GLUCOSE (test code = 2217) 74 MG/DL BUN (test code = 2208) 16 MG/DL CREATININE (test code = 2214) 0.96 MG/DL eGFR (2020 CKD-EPI) (test co de = 58600) 69 ML/MIN/1.73 CALC BUN/CREAT (test code = [...] code = 2219) 13 U/L Delfino OrtaLIPID [id number] 00:00:00* Test Item Value Reference Range Interpretation Comme nts CHOLESTEROL (test code = 2210) 183 MG/DL TRIGLYCERIDES (test code = 2232) 69 MG/DL HDL CHOLESTEROL (test code = 2220) 93 MG/DL CALC LDL CHOL (test code = 2237) 75 MG/DL RISK RATIO LDL/HDL (test cod e = 2238) 0.81 RATIO Delfino Endy YouCOMPREHENSIVE METABOLIC [id number] 00:00:00* Test Item Value Reference Range Interpretation Comme nts GLUCOSE (test code = 2217) 74 MG/DL BUN (test code = 2208) 16 MG/DL CREATININE (test code = 2214) 0.96 MG/DL eGFR (2020 CKD-EPI) (test co de = 25310) 69 ML/MIN/1.73 CALC BUN/CREAT (test code = [...] code = 2219) 13 U/L Delfino OrtaLIPID [id number] 00:00:00* Test Item Value Reference Range Interpretation Comme nts CHOLESTEROL (test code = 2210) 183 MG/DL TRIGLYCERIDES (test code = 2232) 69 MG/DL HDL CHOLESTEROL (test code = 2220) 93 MG/DL CALC LDL CHOL (test code = 2237) 75 MG/DL RISK RATIO LDL/HDL (test cod e = 2238) 0.81 RATIO Delfino OrtaCOMPREHENSIVE METABOLIC [id number] 00:00:00* Test Item Value Reference Range Interpretation Comme nts GLUCOSE (test code = 2217) 74 MG/DL BUN (test code = 2208) 16 MG/DL CREATININE (test code = 2214) 0.96 MG/DL eGFR (2020 CKD-EPI) (test co de = 10097) 69 ML/MIN/1.73 CALC BUN/CREAT (test code = [...] code = 2219) 13 U/L Delfino OrtaLIPID [id number] 00:00:00* Test Item Value Reference Range Interpretation Comme nts CHOLESTEROL (test code = 2210) 183 MG/DL TRIGLYCERIDES (test code = 2232) 69 MG/DL HDL CHOLESTEROL (test code = 2220) 93 MG/DL CALC LDL CHOL (test code = 2237) 75 MG/DL RISK RATIO LDL/HDL (test cod e = 2238) 0.81 RATIO Delfino OrtaCOMPREHENSIVE METABOLIC [id number] 00:00:00* Test Item Value Reference Range Interpretation Comme nts GLUCOSE (test code = 2217) 74 MG/DL BUN (test code = 2208) 16 MG/DL CREATININE (test code = 2214) 0.96 MG/DL eGFR (2020 CKD-EPI) (test co de = 66118) 69 ML/MIN/1.73 CALC BUN/CREAT (test code = [...] = 2219) 13 U/L Delfino Schumacher [place] [id number] 00:00:00* Test Item Value Reference Range Interpretation Comme nts CHOLESTEROL (test code = 2210) 183 MG/DL TRIGLYCERIDES (test code = 2232) 69 MG/DL HDL CHOLESTEROL (test code = 2220) 93 MG/DL CALC LDL CHOL (test code = 2237) 75 MG/DL RISK RATIO LDL/HDL (test cod e = 2238) 0.81 RATIO Delfino Schumacher AustinCOMPREHENSIVE METABOLIC [id number] 00:00:00* Test Item Value Reference Range Interpretation Comme nts GLUCOSE (test code = 2217) 74 MG/DL BUN (test code = 2208) 16 MG/DL CREATININE (test code = 2214) 0.96 MG/DL eGFR (2020 CKD-EPI) (test co de = 23753) 69 ML/MIN/1.73 CALC BUN/CREAT (test code = [...] = 2219) 13 U/L Delfino Schumacher [place] [id number] 00:00:00* Test Item Value Reference Range Interpretation Comme nts CHOLESTEROL (test code = 2210) 183 MG/DL TRIGLYCERIDES (test code = 2232) 69 MG/DL HDL CHOLESTEROL (test code = 2220) 93 MG/DL CALC LDL CHOL (test code = 2237) 75 MG/DL RISK RATIO LDL/HDL (test cod e = 2238) 0.81 RATIO Delfino Schumacher AustinCOMPREHENSIVE METABOLIC [id number] 00:00:00* Test Item Value Reference Range Interpretation Comme nts GLUCOSE (test code = 2217) 74 MG/DL BUN (test code = 2208) 16 MG/DL CREATININE (test code = 2214) 0.96 MG/DL eGFR (2020 CKD-EPI) (test co de = 57048) 69 ML/MIN/1.73 CALC BUN/CREAT (test code = [...] code = 2219) 13 U/L Delfino OrtaLIPID [id number] 00:00:00* Test Item Value Reference Range Interpretation Comme nts CHOLESTEROL (test code = 2210) 183 MG/DL TRIGLYCERIDES (test code = 2232) 69 MG/DL HDL CHOLESTEROL (test code = 2220) 93 MG/DL CALC LDL CHOL (test code = 2237) 75 MG/DL RISK RATIO LDL/HDL (test cod e = 2238) 0.81 RATIO Delfino Schumacher YouCOMPREHENSIVE METABOLIC [id number] 00:00:00* Test Item Value Reference Range Interpretation Comme nts GLUCOSE (test code = 2217) 74 MG/DL BUN (test code = 2208) 16 MG/DL CREATININE (test code = 2214) 0.96 MG/DL eGFR (2020 CKD-EPI) (test co de = 53448) 69 ML/MIN/1.73 CALC BUN/CREAT (test code = [...] code = 2219) 13 U/L Delfino OrtaLIPID [id number] 00:00:00* Test Item Value Reference Range Interpretation Comme nts CHOLESTEROL (test code = 2210) 183 MG/DL TRIGLYCERIDES (test code = 2232) 69 MG/DL HDL CHOLESTEROL (test code = 2220) 93 MG/DL CALC LDL CHOL (test code = 2237) 75 MG/DL RISK RATIO LDL/HDL (test cod e = 2238) 0.81 RATIO Delfino OrtaCOMPREHENSIVE METABOLIC [id number] 00:00:00* Test Item Value Reference Range Interpretation Comme nts GLUCOSE (test code = 2217) 74 MG/DL BUN (test code = 2208) 16 MG/DL CREATININE (test code = 2214) 0.96 MG/DL eGFR (2020 CKD-EPI) (test co de = 80614) 69 ML/MIN/1.73 CALC BUN/CREAT (test code = [...] code = 2219) 13 U/L Delfino OrtaLIPID [id number] 00:00:00* Test Item Value Reference Range Interpretation Comme nts CHOLESTEROL (test code = 2210) 183 MG/DL TRIGLYCERIDES (test code = 2232) 69 MG/DL HDL CHOLESTEROL (test code = 2220) 93 MG/DL CALC LDL CHOL (test code = 2237) 75 MG/DL RISK RATIO LDL/HDL (test cod e = 2238) 0.81 RATIO Delfino Schumacher AustinCOMPREHENSIVE METABOLIC [id number] 00:00:00* Test Item Value Reference Range Interpretation Comme nts GLUCOSE (test code = 2217) 74 MG/DL BUN (test code = 2208) 16 MG/DL CREATININE (test code = 2214) 0.96 MG/DL eGFR (2020 CKD-EPI) (test co de = 68078) 69 ML/MIN/1.73 CALC BUN/CREAT (test code = [...] = 2219) 13 U/L Delfino Schumacher [place] [id number] 00:00:00* Test Item Value Reference Range Interpretation Comme nts CHOLESTEROL (test code = 2210) 183 MG/DL TRIGLYCERIDES (test code = 2232) 69 MG/DL HDL CHOLESTEROL (test code = 2220) 93 MG/DL CALC LDL CHOL (test code = 2237) 75 MG/DL RISK RATIO LDL/HDL (test cod e = 2238) 0.81 RATIO Delfino Schumacher AustinCOMPREHENSIVE METABOLIC [id number] 00:00:00* Test Item Value Reference Range Interpretation Comme nts GLUCOSE (test code = 2217) 74 MG/DL BUN (test code = 2208) 16 MG/DL CREATININE (test code = 2214) 0.96 MG/DL eGFR (2020 CKD-EPI) (test co de = 12204) 69 ML/MIN/1.73 CALC BUN/CREAT (test code = [...] code = 2219) 13 U/L Delfino Schumacher [place] [id number] 00:00:00* Test Item Value Reference Range Interpretation Comme nts CHOLESTEROL (test code = 2210) 183 MG/DL TRIGLYCERIDES (test code = 2232) 69 MG/DL HDL CHOLESTEROL (test code = 2220) 93 MG/DL CALC LDL CHOL (test code = 2237) 75 MG/DL RISK RATIO LDL/HDL (test cod e = 2238) 0.81 RATIO Delfino OrtaCOMPREHENSIVE METABOLIC [id number] 00:00:00* Test Item Value Reference Range Interpretation Comme nts GLUCOSE (test code = 2217) 74 MG/DL BUN (test code = 2208) 16 MG/DL CREATININE (test code = 2214) 0.96 MG/DL eGFR (2020 CKD-EPI) (test co de = 59780) 69 ML/MIN/1.73 CALC BUN/CREAT (test code = [...] = 2219) 13 U/L Delfino Schumacher [place] [id number] 00:00:00* Test Item Value Reference Range Interpretation Comme nts CHOLESTEROL (test code = 2210) 183 MG/DL TRIGLYCERIDES (test code = 2232) 69 MG/DL HDL CHOLESTEROL (test code = 2220) 93 MG/DL CALC LDL CHOL (test code = 2237) 75 MG/DL RISK RATIO LDL/HDL (test cod e = 2238) 0.81 RATIO Delfino OrtaCOMPREHENSIVE METABOLIC [id number] 00:00:00* Test Item Value Reference Range Interpretation Comme nts GLUCOSE (test code = 2217) 74 MG/DL BUN (test code = 2208) 16 MG/DL CREATININE (test code = 2214) 0.96 MG/DL eGFR (2020 CKD-EPI) (test co de = 62897) 69 ML/MIN/1.73 CALC BUN/CREAT (test code = [...] = 2219) 13 U/L Delfino Schumacher [place] [id number] 00:00:00* Test Item Value Reference Range Interpretation Comme nts CHOLESTEROL (test code = 2210) 183 MG/DL TRIGLYCERIDES (test code = 2232) 69 MG/DL HDL CHOLESTEROL (test code = 2220) 93 MG/DL CALC LDL CHOL (test code = 2237) 75 MG/DL RISK RATIO LDL/HDL (test cod e = 2238) 0.81 RATIO Delfino OrtaCOMPREHENSIVE METABOLIC [id number] 00:00:00* Test Item Value Reference Range Interpretation Comme nts GLUCOSE (test code = 2217) 74 MG/DL BUN (test code = 2208) 16 MG/DL CREATININE (test code = 2214) 0.96 MG/DL eGFR (2020 CKD-EPI) (test co de = 58422) 69 ML/MIN/1.73 CALC BUN/CREAT (test code = [...] = 2219) 13 U/L Delfino Schumacher [place] [id number] 00:00:00* Test Item Value Reference Range Interpretation Comme nts CHOLESTEROL (test code = 2210) 183 MG/DL TRIGLYCERIDES (test code = 2232) 69 MG/DL HDL CHOLESTEROL (test code = 2220) 93 MG/DL CALC LDL CHOL (test code = 2237) 75 MG/DL RISK RATIO LDL/HDL (test cod e = 2238) 0.81 RATIO Delfino OrtaCOMPREHENSIVE METABOLIC [id number] 00:00:00* Test Item Value Reference Range Interpretation Comme nts GLUCOSE (test code = 2217) 74 MG/DL BUN (test code = 2208) 16 MG/DL CREATININE (test code = 2214) 0.96 MG/DL eGFR (2020 CKD-EPI) (test co de = 90745) 69 ML/MIN/1.73 CALC BUN/CREAT (test code = [...] code = 2219) 13 U/L Delfino Schumacher [place] [id number] 00:00:00* Test Item Value Reference Range Interpretation Comme nts CHOLESTEROL (test code = 2210) 183 MG/DL TRIGLYCERIDES (test code = 2232) 69 MG/DL HDL CHOLESTEROL (test code = 2220) 93 MG/DL CALC LDL CHOL (test code = 2237) 75 MG/DL RISK RATIO LDL/HDL (test cod e = 2238) 0.81 RATIO Delfino OrtaCOMPREHENSIVE METABOLIC [id number] 00:00:00* Test Item Value Reference Range Interpretation Comme nts GLUCOSE (test code = 2217) 74 MG/DL BUN (test code = 2208) 16 MG/DL CREATININE (test code = 2214) 0.96 MG/DL eGFR (2020 CKD-EPI) (test co de = 27041) 69 ML/MIN/1.73 CALC BUN/CREAT (test code = [...] code = 2219) 13 U/L Delfino OrtaLIPID [id number] 00:00:00* Test Item Value Reference Range Interpretation Comme nts CHOLESTEROL (test code = 2210) 183 MG/DL TRIGLYCERIDES (test code = 2232) 69 MG/DL HDL CHOLESTEROL (test code = 2220) 93 MG/DL CALC LDL CHOL (test code = 2237) 75 MG/DL RISK RATIO LDL/HDL (test cod e = 2238) 0.81 RATIO Delfino Schumacher YouCOMPREHENSIVE METABOLIC [id number] 00:00:00* Test Item Value Reference Range Interpretation Comme nts GLUCOSE (test code = 2217) 74 MG/DL BUN (test code = 2208) 16 MG/DL CREATININE (test code = 2214) 0.96 MG/DL eGFR (2020 CKD-EPI) (test co de = 68784) 69 ML/MIN/1.73 CALC BUN/CREAT (test code = [...] = 2219) 13 U/L Delfino Schumacher [place] [id number] 00:00:00* Test Item Value Reference Range Interpretation Comme nts CHOLESTEROL (test code = 2210) 183 MG/DL TRIGLYCERIDES (test code = 2232) 69 MG/DL HDL CHOLESTEROL (test code = 2220) 93 MG/DL CALC LDL CHOL (test code = 2237) 75 MG/DL RISK RATIO LDL/HDL (test cod e = 2238) 0.81 RATIO Delfino Schumacher AustinCOMPREHENSIVE METABOLIC [id number] 00:00:00* Test Item Value Reference Range Interpretation Comme nts GLUCOSE (test code = 2217) 74 MG/DL BUN (test code = 2208) 16 MG/DL CREATININE (test code = 2214) 0.96 MG/DL eGFR (2020 CKD-EPI) (test co de = 57012) 69 ML/MIN/1.73 CALC BUN/CREAT (test code = [...] = 2219) 13 U/L Delfino Schumacher [place] [id number] 00:00:00* Test Item Value Reference Range Interpretation Comme nts CHOLESTEROL (test code = 2210) 183 MG/DL TRIGLYCERIDES (test code = 2232) 69 MG/DL HDL CHOLESTEROL (test code = 2220) 93 MG/DL CALC LDL CHOL (test code = 2237) 75 MG/DL RISK RATIO LDL/HDL (test cod e = 2238) 0.81 RATIO Delfino Schumacher AustinCOMPREHENSIVE METABOLIC [id number] 00:00:00* Test Item Value Reference Range Interpretation Comme nts GLUCOSE (test code = 2217) 74 MG/DL BUN (test code = 2208) 16 MG/DL CREATININE (test code = 2214) 0.96 MG/DL eGFR (2020 CKD-EPI) (test co de = 34330) 69 ML/MIN/1.73 CALC BUN/CREAT (test code = [...] = 2219) 13 U/L Delfino Schumacher AustinLIPID [id number] 00:00:00* Test Item Value Reference Range Interpretation Comme nts CHOLESTEROL (test code = 2210) 183 MG/DL TRIGLYCERIDES (test code = 2232) 69 MG/DL HDL CHOLESTEROL (test code = 2220) 93 MG/DL CALC LDL CHOL (test code = 2237) 75 MG/DL RISK RATIO LDL/HDL (test cod e = 2238) 0.81 RATIO Delfino OrtaCOMPREHENSIVE METABOLIC [id number] 00:00:00* Test Item Value Reference Range Interpretation Comme nts GLUCOSE (test code = 2217) 74 MG/DL BUN (test code = 2208) 16 MG/DL CREATININE (test code = 2214) 0.96 MG/DL eGFR (2020 CKD-EPI) (test co de = 87232) 69 ML/MIN/1.73 CALC BUN/CREAT (test code = [...] code = 2219) 13 U/L Delfino OrtaLIPID [id number] 00:00:00* Test Item Value Reference Range Interpretation Comme nts CHOLESTEROL (test code = 2210) 183 MG/DL TRIGLYCERIDES (test code = 2232) 69 MG/DL HDL CHOLESTEROL (test code = 2220) 93 MG/DL CALC LDL CHOL (test code = 2237) 75 MG/DL RISK RATIO LDL/HDL (test cod e = 2238) 0.81 RATIO Delfino OrtaCOMPREHENSIVE METABOLIC [id number] 00:00:00* Test Item Value Reference Range Interpretation Comme nts GLUCOSE (test code = 2217) 74 MG/DL BUN (test code = 2208) 16 MG/DL CREATININE (test code = 2214) 0.96 MG/DL eGFR (2020 CKD-EPI) (test co de = 25826) 69 ML/MIN/1.73 CALC BUN/CREAT (test code = [...] code = 2219) 13 U/L Delfino OrtaLIPID [id number] 00:00:00* Test Item Value Reference Range Interpretation Comme nts CHOLESTEROL (test code = 2210) 183 MG/DL TRIGLYCERIDES (test code = 2232) 69 MG/DL HDL CHOLESTEROL (test code = 2220) 93 MG/DL CALC LDL CHOL (test code = 2237) 75 MG/DL RISK RATIO LDL/HDL (test cod e = 2238) 0.81 RATIO Delfino OrtaCOMPREHENSIVE METABOLIC [id number] 00:00:00* Test Item Value Reference Range Interpretation Comme nts GLUCOSE (test code = 2217) 74 MG/DL BUN (test code = 2208) 16 MG/DL CREATININE (test code = 2214) 0.96 MG/DL eGFR (2020 CKD-EPI) (test co de = 04931) 69 ML/MIN/1.73 CALC BUN/CREAT (test code = [...] code = 2219) 13 U/L Delfino OrtaLIPID [id number] 00:00:00* Test Item Value Reference Range Interpretation Comme nts CHOLESTEROL (test code = 2210) 183 MG/DL TRIGLYCERIDES (test code = 2232) 69 MG/DL HDL CHOLESTEROL (test code = 2220) 93 MG/DL CALC LDL CHOL (test code = 2237) 75 MG/DL RISK RATIO LDL/HDL (test cod e = 2238) 0.81 RATIO Delfino Schumacher AustinCOMPREHENSIVE METABOLIC [id number] 00:00:00* Test Item Value Reference Range Interpretation Comme nts GLUCOSE (test code = 2217) 74 MG/DL BUN (test code = 2208) 16 MG/DL CREATININE (test code = 2214) 0.96 MG/DL eGFR (2020 CKD-EPI) (test co de = 17444) 69 ML/MIN/1.73 CALC BUN/CREAT (test code = [...] code = 2219) 13 U/L Delfino [facility] [id number] 00:00:00* Test Item Value Reference Range Interpretation Comme nts CHOLESTEROL (test code = 2210) 183 MG/DL TRIGLYCERIDES (test code = 2232) 69 MG/DL HDL CHOLESTEROL (test code = 2220) 93 MG/DL CALC LDL CHOL (test code = 2237) 75 MG/DL RISK RATIO LDL/HDL (test cod e = 2238) 0.81 RATIO Delfino Schumacher [facility] [id number] 00:00:00* Test Item Value Reference Range Interpretation Comme nts GLUCOSE (test code = 2217) 74 MG/DL BUN (test code = 2208) 16 MG/DL CREATININE (test code = 2214) 0.96 MG/DL eGFR (2020 CKD-EPI) (test co de = 92136) 69 ML/MIN/1.73 CALC BUN/CREAT (test code = [...] code = 2219) 13 U/L Delfino Schumacher [place] [id number] 00:00:00* Test Item Value Reference Range Interpretation Comme nts CHOLESTEROL (test code = 2210) 183 MG/DL TRIGLYCERIDES (test code = 2232) 69 MG/DL HDL CHOLESTEROL (test code = 2220) 93 MG/DL CALC LDL CHOL (test code = 2237) 75 MG/DL RISK RATIO LDL/HDL (test cod e = 2238) 0.81 RATIO Delfino Schumacher YouCOMPREHENSIVE METABOLIC [id number] 00:00:00* Test Item Value Reference Range Interpretation Comme nts GLUCOSE (test code = 2217) 74 MG/DL BUN (test code = 2208) 16 MG/DL CREATININE (test code = 2214) 0.96 MG/DL eGFR (2020 CKD-EPI) (test co de = 95369) 69 ML/MIN/1.73 CALC BUN/CREAT (test code = [...] = 2219) 13 U/L Delfino Schumacher [facility] [id number] 00:00:00* Test Item Value Reference Range Interpretation Comme nts CHOLESTEROL (test code = 2210) 183 MG/DL TRIGLYCERIDES (test code = 2232) 69 MG/DL HDL CHOLESTEROL (test code = 2220) 93 MG/DL CALC LDL CHOL (test code = 2237) 75 MG/DL RISK RATIO LDL/HDL (test cod e = 2238) 0.81 RATIO Delfino [facility]ENS[facility] MET[facility] [id number] 00:00:00* Test Item Value Reference Range Interpretation Comme nts GLUCOSE (test code = 2217) 74 MG/DL BUN (test code = 2208) 16 MG/DL CREATININE (test code = 2214) 0.96 MG/DL eGFR (2020 CKD-EPI) (test co de = 77523) 69 ML/MIN/1.73 CALC BUN/CREAT (test code = [...] = 2219) 13 U/L Delfino Schumacher [place] [id number] 00:00:00* Test Item Value Reference Range Interpretation Comme nts CHOLESTEROL (test code = 2210) 183 MG/DL TRIGLYCERIDES (test code = 2232) 69 MG/DL HDL CHOLESTEROL (test code = 2220) 93 MG/DL CALC LDL CHOL (test code = 2237) 75 MG/DL RISK RATIO LDL/HDL (test cod e = 2238) 0.81 RATIO Delfino [facility]taCOMPREHENSIVE METABOLIC [id number] 00:00:00* Test Item Value Reference Range Interpretation Comme nts GLUCOSE (test code = 2217) 74 MG/DL BUN (test code = 2208) 16 MG/DL CREATININE (test code = 2214) 0.96 MG/DL eGFR (2020 CKD-EPI) (test co de = 87315) 69 ML/MIN/1.73 CALC BUN/CREAT (test code = [...] = 2219) 13 U/L Delfino Schumacher [place] [id number] 00:00:00* Test Item Value Reference Range Interpretation Comme nts CHOLESTEROL (test code = 2210) 183 MG/DL TRIGLYCERIDES (test code = 2232) 69 MG/DL HDL CHOLESTEROL (test code = 2220) 93 MG/DL CALC LDL CHOL (test code = 2237) 75 MG/DL RISK RATIO LDL/HDL (test cod e = 2238) 0.81 RATIO Delfino OrtaCOMPREHENSIVE METABOLIC [id number] 00:00:00* Test Item Value Reference Range Interpretation Comme nts GLUCOSE (test code = 2217) 74 MG/DL BUN (test code = 2208) 16 MG/DL CREATININE (test code = 2214) 0.96 MG/DL eGFR (2020 CKD-EPI) (test co de = 87141) 69 ML/MIN/1.73 CALC BUN/CREAT (test code = [...] code = 2219) 13 U/L Delfino OrtaVIVINIALL, [id number] 09:14:59SPECIMEN NUMBER: [id number] CULTURE, URINE SPECIMEN NUMBER: [id number] SPECIMEN COMMENT: URINE SOURCE: URINE REPORT STATUS: FINAL FINAL REPORT: 07/05/2021 >100,000 CFU/ML MIXED MICROBIAL POPULATION PRESENT, NO PREDOMINATING ORGANISMS;PROBABLE CONTAMINANTS.CULTURE, [id number] 00:00:00* Test Item Value Reference Range Interpretation Comme nts CULTURE, URINE (test code = 97842) SPECIMEN NUMBER: [id number] CULTURE, [id number] 00:00:00* Test Item Value Reference Range Interpretation Comme nts CULTURE, URINE (test code = 23745) SPECIMEN NUMBER: [id number] CULTURE, [id number] 00:00:00* Test Item Value Reference Range Interpretation Comme nts CULTURE, URINE (test code = 23485) SPECIMEN NUMBER: [id number] CULTURE, [id number] 00:00:00* Test Item Value Reference Range Interpretation Comme nts CULTURE, URINE (test code = 17473) SPECIMEN NUMBER: [id number] Delfino OrtaCULTURE, [id number] 00:00:00* Test Item Value Reference Range Interpretation Comme nts CULTURE, URINE (test code = 60083) SPECIMEN NUMBER: [id number] Delfino Cedeño, [id number] 00:00:00* Test Item Value Reference Range Interpretation Comme nts CULTURE, URINE (test code = 36190) SPECIMEN NUMBER: [id number] Delfino Cedeño, [id number] 00:00:00* Test Item Value Reference Range Interpretation Comme nts CULTURE, URINE (test code = 33511) SPECIMEN NUMBER: [id number] Delfino Cedeño, [id number] 00:00:00* Test Item Value Reference Range Interpretation Comme nts CULTURE, URINE (test code = 44785) SPECIMEN NUMBER: [id number] Delfino Cedeño, [id number] 00:00:00* Test Item Value Reference Range Interpretation Comme nts CULTURE, URINE (test code = 49212) SPECIMEN NUMBER: [id number] Delfino Cedeño, [id number] 00:00:00* Test Item Value Reference Range Interpretation Comme nts CULTURE, URINE (test code = 58247) SPECIMEN NUMBER: [id number] Delfino Cedeño, [id number] 00:00:00* Test Item Value Reference Range Interpretation Comme nts CULTURE, URINE (test code = 64227) SPECIMEN NUMBER: [id number] Delfino Cedeño, [id number] 00:00:00* Test Item Value Reference Range Interpretation Comme nts CULTURE, URINE (test code = 24714) SPECIMEN NUMBER: [id number] Delfino Cedeño, [id number] 00:00:00* Test Item Value Reference Range Interpretation Comme nts CULTURE, URINE (test code = 84576) SPECIMEN NUMBER: [id number] Delfino Cedeño, [id number] 00:00:00* Test Item Value Reference Range Interpretation Comme nts CULTURE, URINE (test code = 81949) SPECIMEN NUMBER: [id number] Delfino Cedeño, [id number] 00:00:00* Test Item Value Reference Range Interpretation Comme nts CULTURE, URINE (test code = 38914) SPECIMEN NUMBER: [id number] Delfino SarmientoLTURE, [id number] 00:00:00* Test Item Value Reference Range Interpretation Comme nts CULTURE, URINE (test code = 37620) SPECIMEN NUMBER: [id number] Delfino Cedeño [id number] 00:00:00* Test Item Value Reference Range Interpretation Comme nts CULTURE, URINE (test code = 05136) SPECIMEN NUMBER: [id number] Delfino Cedeño [id number] 00:00:00* Test Item Value Reference Range Interpretation Comme nts CULTURE, URINE (test code = 18976) SPECIMEN NUMBER: [id number] Delfino Cedeño [id number] 00:00:00* Test Item Value Reference Range Interpretation Comme nts CULTURE, URINE (test code = 33551) SPECIMEN NUMBER: [id number] Delfino Cedeño [id number] 00:00:00* Test Item Value Reference Range Interpretation Comme nts CULTURE, URINE (test code = 44979) SPECIMEN NUMBER: [id number] Delfino Cedeño [id number] 00:00:00* Test Item Value Reference Range Interpretation Comme nts CULTURE, URINE (test code = 66979) SPECIMEN NUMBER: [id number] Delfino Cedeño [id number] 00:00:00* Test Item Value Reference Range Interpretation Comme nts CULTURE, URINE (test code = 69110) SPECIMEN NUMBER: [id number] Delfino Cedeño [id number] 00:00:00* Test Item Value Reference Range Interpretation Comme nts CULTURE, URINE (test code = 59817) SPECIMEN NUMBER: [id number] Delfino Cedeño, [id number] 00:00:00* Test Item Value Reference Range Interpretation Comme nts CULTURE, URINE (test code = 34570) SPECIMEN NUMBER: [id number] Delfino SarmientoLTNIALL, [id number] 00:00:00* Test Item Value Reference Range Interpretation Comme nts CULTURE, URINE (test code = 70013) SPECIMEN NUMBER: [id number] Delfino Cedeño, [id number] 00:00:00* Test Item Value Reference Range Interpretation Comme nts CULTURE, URINE (test code = 97140) SPECIMEN NUMBER: [id number] Delfino Cedeño, [id number] 00:00:00* Test Item Value Reference Range Interpretation Comme nts CULTURE, URINE (test code = 01025) SPECIMEN NUMBER: [id number] Delfino Cedeño, [id number] 00:00:00* Test Item Value Reference Range Interpretation Comme nts CULTURE, URINE (test code = 74028) SPECIMEN NUMBER: [id number] Deflino Cedeño, [id number] 00:00:00* Test Item Value Reference Range Interpretation Comme nts CULTURE, URINE (test code = 97781) SPECIMEN NUMBER: [id number] Delfino Cedeño, [id number] 00:00:00* Test Item Value Reference Range Interpretation Comme nts CULTURE, URINE (test code = 89977) SPECIMEN NUMBER: [id number] Delfino Cedeño, [id number] 00:00:00* Test Item Value Reference Range Interpretation Comme nts CULTURE, URINE (test code = 40330) SPECIMEN NUMBER: [id number] Delfino Cedeño, [id number] 00:00:00* Test Item Value Reference Range Interpretation Comme nts CULTURE, URINE (test code = 56088) SPECIMEN NUMBER: [id number] Delfino Cedeño, [id number] 00:00:00* Test Item Value Reference Range Interpretation Comme nts CULTURE, URINE (test code = 86863) SPECIMEN NUMBER: [id number] Delfino Cedeño, [id number] 00:00:00* Test Item Value Reference Range Interpretation Comme nts CULTURE, URINE (test code = 68766) SPECIMEN NUMBER: [id number] Delfino SarmientoLTNIALL, [id number] 00:00:00* Test Item Value Reference Range Interpretation Comme nts CULTURE, URINE (test code = 78466) SPECIMEN NUMBER: [id number] Delfino SarmientoLTNIALL, [id number] 00:00:00* Test Item Value Reference Range Interpretation Comme nts CULTURE, URINE (test code = 01155) SPECIMEN NUMBER: [id number] Delfino Cedeño, [id number] 00:00:00* Test Item Value Reference Range Interpretation Comme nts CULTURE, URINE (test code = 14846) SPECIMEN NUMBER: [id number] Delfino Cedeño, [id number] 00:00:00* Test Item Value Reference Range Interpretation Comme nts CULTURE, URINE (test code = 03153) SPECIMEN NUMBER: [id number] VAGINAL PATHOGENS DNA [id number] 15:31:31* Test Item Value Reference Range Interpretation Comme nts DIANNA SPECIES (test code = 87499) NEGATIVE NEGATIVE G. VAGINALIS (test code = 28573) NEGATIVE NEGATIVE T. VAGINALIS (test code = 04299) NEGATIVE NEGATIVE UNLESS OTHERWISE INDICATED, ALL TESTING PERFORMED [facility] [employer] [address] [place] [address] [employer] MANAGER: ALYSSIA FRASER M.D. CLIA NUMBER [id number] [facility] [place]. [id number] VAGINAL PATHOGENS DNA [id number] 00:00:00* Test Item Value Reference Range Interpretation Comme nts DIANNA SPECIES (test code = 12441) NEGATIVE G. VAGINALIS (test code = 89828) NEGATIVE T. VAGINALIS (test code = 78947) NEGATIVE VAGINAL PATHOGENS DNA [id number] 00:00:00* Test Item Value Reference Range Interpretation Comme nts DIANNA SPECIES (test code = 39830) NEGATIVE G. VAGINALIS (test code = 82674) NEGATIVE T. VAGINALIS (test code = 00192) NEGATIVE VAGINAL PATHOGENS DNA [id number] 00:00:00* Test Item Value Reference Range Interpretation Comme nts DIANNA SPECIES (test code = 47455) NEGATIVE G. VAGINALIS (test code = 50649) NEGATIVE T. VAGINALIS (test code = 41021) NEGATIVE VAGINAL PATHOGENS DNA [id number] 00:00:00* Test Item Value Reference Range Interpretation Comme nts DIANNA SPECIES (test code = 09083) NEGATIVE G. VAGINALIS (test code = 68128) NEGATIVE T. VAGINALIS (test code = 84446) NEGATIVE Delfino Schumacher AustinVAGINAL PATHOGENS DNA [id number] 00:00:00* Test Item Value Reference Range Interpretation Comme nts DIANNA SPECIES (test code = 31225) NEGATIVE G. VAGINALIS (test code = 56601) NEGATIVE T. VAGINALIS (test code = 64968) NEGATIVE Delfino F AustinVAGINAL PATHOGENS DNA [id number] 00:00:00* Test Item Value Reference Range Interpretation Comme nts DIANNA SPECIES (test code = 18489) NEGATIVE G. VAGINALIS (test code = 72057) NEGATIVE T. VAGINALIS (test code = 95083) NEGATIVE Delfino F AustinVAGINAL PATHOGENS DNA [id number] 00:00:00* Test Item Value Reference Range Interpretation Comme nts DIANNA SPECIES (test code = 19614) NEGATIVE G. VAGINALIS (test code = 48265) NEGATIVE T. VAGINALIS (test code = 19575) NEGATIVE Delfino F AustinVAGINAL PATHOGENS DNA [id number] 00:00:00* Test Item Value Reference Range Interpretation Comme nts DIANNA SPECIES (test code = 36064) NEGATIVE G. VAGINALIS (test code = 55233) NEGATIVE T. VAGINALIS (test code = 12260) NEGATIVE Delfino F AustinVAGINAL PATHOGENS DNA [id number] 00:00:00* Test Item Value Reference Range Interpretation Comme nts DIANNA SPECIES (test code = 97056) NEGATIVE G. VAGINALIS (test code = 55583) NEGATIVE T. VAGINALIS (test code = 19752) NEGATIVE Delfino F AustinVAGINAL PATHOGENS DNA [id number] 00:00:00* Test Item Value Reference Range Interpretation Comme nts DIANNA SPECIES (test code = 71976) NEGATIVE G. VAGINALIS (test code = 16556) NEGATIVE T. VAGINALIS (test code = 91179) NEGATIVE Delfino F AustinVAGINAL PATHOGENS DNA [id number] 00:00:00* Test Item Value Reference Range Interpretation Comme nts DIANNA SPECIES (test code = 09615) NEGATIVE G. VAGINALIS (test code = 34074) NEGATIVE T. VAGINALIS (test code = 88501) NEGATIVE Delfino F AustinVAGINAL PATHOGENS DNA [id number] 00:00:00* Test Item Value Reference Range Interpretation Comme nts DIANNA SPECIES (test code = 45052) NEGATIVE G. VAGINALIS (test code = 62813) NEGATIVE T. VAGINALIS (test code = 83928) NEGATIVE Delfino F AustinVAGINAL PATHOGENS DNA [id number] 00:00:00* Test Item Value Reference Range Interpretation Comme nts DIANNA SPECIES (test code = ) NEGATIVE G. VAGINALIS (test code = 27863) NEGATIVE T. VAGINALIS (test code = 36907) NEGATIVE Delfino F AustinVAGINAL PATHOGENS DNA [id number] 00:00:00* Test Item Value Reference Range Interpretation Comme nts DIANNA SPECIES (test code = 44049) NEGATIVE G. VAGINALIS (test code = 17600) NEGATIVE T. VAGINALIS (test code = 14544) NEGATIVE Delfino F AustinVAGINAL PATHOGENS DNA [id number] 00:00:00* Test Item Value Reference Range Interpretation Comme nts DIANNA SPECIES (test code = 68649) NEGATIVE G. VAGINALIS (test code = 61186) NEGATIVE T. VAGINALIS (test code = 36082) NEGATIVE Delfino F AustinVAGINAL PATHOGENS DNA [id number] 00:00:00* Test Item Value Reference Range Interpretation Comme nts DIANNA SPECIES (test code = 47609) NEGATIVE G. VAGINALIS (test code = 03057) NEGATIVE T. VAGINALIS (test code = 04398) NEGATIVE Delfino F AustinVAGINAL PATHOGENS DNA [id number] 00:00:00* Test Item Value Reference Range Interpretation Comme nts DIANNA SPECIES (test code = 23959) NEGATIVE G. VAGINALIS (test code = 87615) NEGATIVE T. VAGINALIS (test code = 06613) NEGATIVE Delfino F AustinVAGINAL PATHOGENS DNA [id number] 00:00:00* Test Item Value Reference Range Interpretation Comme nts DIANNA SPECIES (test code = 20286) NEGATIVE G. VAGINALIS (test code = 93258) NEGATIVE T. VAGINALIS (test code = 78271) NEGATIVE Delfino F AustinVAGINAL PATHOGENS DNA [id number] 00:00:00* Test Item Value Reference Range Interpretation Comme nts DIANNA SPECIES (test code = 25974) NEGATIVE G. VAGINALIS (test code = 57887) NEGATIVE T. VAGINALIS (test code = 55621) NEGATIVE Delfino F AustinVAGINAL PATHOGENS DNA [id number] 00:00:00* Test Item Value Reference Range Interpretation Comme nts DIANNA SPECIES (test code = 58810) NEGATIVE G. VAGINALIS (test code = 47405) NEGATIVE T. VAGINALIS (test code = 43607) NEGATIVE Delfino F AustinVAGINAL PATHOGENS DNA [id number] 00:00:00* Test Item Value Reference Range Interpretation Comme nts DIANNA SPECIES (test code = ) NEGATIVE G. VAGINALIS (test code = 80643) NEGATIVE T. VAGINALIS (test code = 44547) NEGATIVE Delfino F AustinVAGINAL PATHOGENS DNA [id number] 00:00:00* Test Item Value Reference Range Interpretation Comme nts DIANNA SPECIES (test code = 35802) NEGATIVE G. VAGINALIS (test code = 40482) NEGATIVE T. VAGINALIS (test code = 23457) NEGATIVE Delfino F AustinVAGINAL PATHOGENS DNA [id number] 00:00:00* Test Item Value Reference Range Interpretation Comme nts DIANNA SPECIES (test code = 30086) NEGATIVE G. VAGINALIS (test code = 33738) NEGATIVE T. VAGINALIS (test code = 13481) NEGATIVE Delfino F AustinVAGINAL PATHOGENS DNA [id number] 00:00:00* Test Item Value Reference Range Interpretation Comme nts DIANNA SPECIES (test code = 42847) NEGATIVE G. VAGINALIS (test code = 33994) NEGATIVE T. VAGINALIS (test code = 72232) NEGATIVE Delfino F AustinVAGINAL PATHOGENS DNA [id number] 00:00:00* Test Item Value Reference Range Interpretation Comme nts DIANNA SPECIES (test code = ) NEGATIVE G. VAGINALIS (test code = 08135) NEGATIVE T. VAGINALIS (test code = 64102) NEGATIVE Delfino F AustinVAGINAL PATHOGENS DNA [id number] 00:00:00* Test Item Value Reference Range Interpretation Comme nts DIANNA SPECIES (test code = 94560) NEGATIVE G. VAGINALIS (test code = 52665) NEGATIVE T. VAGINALIS (test code = 18210) NEGATIVE Delfino F AustinVAGINAL PATHOGENS DNA [id number] 00:00:00* Test Item Value Reference Range Interpretation Comme nts DIANNA SPECIES (test code = 61051) NEGATIVE G. VAGINALIS (test code = 39709) NEGATIVE T. VAGINALIS (test code = 64442) NEGATIVE Delfino F AustinVAGINAL PATHOGENS DNA [id number] 00:00:00* Test Item Value Reference Range Interpretation Comme nts DIANNA SPECIES (test code = 44429) NEGATIVE G. VAGINALIS (test code = 14646) NEGATIVE T. VAGINALIS (test code = ) NEGATIVE Delfino F AustinVAGINAL PATHOGENS DNA [id number] 00:00:00* Test Item Value Reference Range Interpretation Comme nts DIANNA SPECIES (test code = 06068) NEGATIVE G. VAGINALIS (test code = 26057) NEGATIVE T. VAGINALIS (test code = 27545) NEGATIVE Delfino F AustinVAGINAL PATHOGENS DNA [id number] 00:00:00* Test Item Value Reference Range Interpretation Comme nts DIANNA SPECIES (test code = 40745) NEGATIVE G. VAGINALIS (test code = 32613) NEGATIVE T. VAGINALIS (test code = 54478) NEGATIVE Delfino F AustinVAGINAL PATHOGENS DNA [id number] 00:00:00* Test Item Value Reference Range Interpretation Comme nts DIANNA SPECIES (test code = 03829) NEGATIVE G. VAGINALIS (test code = 84781) NEGATIVE T. VAGINALIS (test code = 50938) NEGATIVE Delfino F AustinVAGINAL PATHOGENS DNA [id number] 00:00:00* Test Item Value Reference Range Interpretation Comme nts DIANNA SPECIES (test code = 38473) NEGATIVE G. VAGINALIS (test code = 11891) NEGATIVE T. VAGINALIS (test code = 07450) NEGATIVE Delfino F AustinVAGINAL PATHOGENS DNA [id number] 00:00:00* Test Item Value Reference Range Interpretation Comme nts DIANNA SPECIES (test code = ) NEGATIVE G. VAGINALIS (test code = 49862) NEGATIVE T. VAGINALIS (test code = 18882) NEGATIVE Delfino F AustinVAGINAL PATHOGENS DNA [id number] 00:00:00* Test Item Value Reference Range Interpretation Comme nts DIANNA SPECIES (test code = 97635) NEGATIVE G. VAGINALIS (test code = 62645) NEGATIVE T. VAGINALIS (test code = 26449) NEGATIVE Delfino F AustinVAGINAL PATHOGENS DNA [id number] 00:00:00* Test Item Value Reference Range Interpretation Comme nts DIANNA SPECIES (test code = 56441) NEGATIVE G. VAGINALIS (test code = 68962) NEGATIVE T. VAGINALIS (test code = 48858) NEGATIVE Delfino F AustinVAGINAL PATHOGENS DNA [id number] 00:00:00* Test Item Value Reference Range Interpretation Comme nts DIANNA SPECIES (test code = 81282) NEGATIVE G. VAGINALIS (test code = 06441) NEGATIVE T. VAGINALIS (test code = 09962) NEGATIVE Delfino Schumacher [facility] PATH[facility] DNA [id number] 00:00:00* Test Item Value Reference Range Interpretation Comme nts DIANNA SPECIES (test code = ) NEGATIVE G. VAGINALIS (test code = 42207) NEGATIVE T. VAGINALIS (test code = 77902) NEGATIVE Delfino Schumacher [facility] PATHOGENS DNA [id number] 00:00:00* Test Item Value Reference Range Interpretation Comme nts DIANNA SPECIES (test code = ) NEGATIVE G. VAGINALIS (test code = 64138) NEGATIVE T. VAGINALIS (test code = 91681) NEGATIVE CULTURE, [id number] 12:43:02SPECIMEN NUMBER: [id number] CULTURE, URINE SPECIMEN NUMBER: [id number] SPECIMEN COMMENT: URINE SOURCE: URINE REPORT STATUS: [...] Comme nts CULTURE, URINE (test code = 64755) SPECIMEN NUMBER: [id number] CULTURE, [id number] 00:00:00* Test Item Value Reference Range Interpretation Comme nts CULTURE, URINE (test code = 71419) SPECIMEN NUMBER: [id number] CULTURE, [id number] 00:00:00* Test Item Value Reference Range Interpretation Comme nts CULTURE, URINE (test code = 65958) SPECIMEN NUMBER: [id number] CULTURE, [id number] 00:00:00* Test Item Value Reference Range Interpretation Comme nts CULTURE, URINE (test code = 43112) SPECIMEN NUMBER: [id number] Delfino OrtaCULTURE, [id number] 00:00:00* Test Item Value Reference Range Interpretation Comme nts CULTURE, URINE (test code = 67975) SPECIMEN NUMBER: [id number] Delfino Cedeño [id number] 00:00:00* Test Item Value Reference Range Interpretation Comme nts CULTURE, URINE (test code = 18200) SPECIMEN NUMBER: [id number] Delfino Cedeño [id number] 00:00:00* Test Item Value Reference Range Interpretation Comme nts CULTURE, URINE (test code = 56155) SPECIMEN NUMBER: [id number] Delfino Cedeño, [id number] 00:00:00* Test Item Value Reference Range Interpretation Comme nts CULTURE, URINE (test code = 77433) SPECIMEN NUMBER: [id number] Delfino Cedeño, [id number] 00:00:00* Test Item Value Reference Range Interpretation Comme nts CULTURE, URINE (test code = 70476) SPECIMEN NUMBER: [id number] Delfino Cedeño, [id number] 00:00:00* Test Item Value Reference Range Interpretation Comme nts CULTURE, URINE (test code = 25452) SPECIMEN NUMBER: [id number] Delfino Cedeño, [id number] 00:00:00* Test Item Value Reference Range Interpretation Comme nts CULTURE, URINE (test code = 37914) SPECIMEN NUMBER: [id number] Delfino Cedeño, [id number] 00:00:00* Test Item Value Reference Range Interpretation Comme nts CULTURE, URINE (test code = 35604) SPECIMEN NUMBER: [id number] Delfino Cedeño, [id number] 00:00:00* Test Item Value Reference Range Interpretation Comme nts CULTURE, URINE (test code = 66631) SPECIMEN NUMBER: [id number] Delfino Cedeño, [id number] 00:00:00* Test Item Value Reference Range Interpretation Comme nts CULTURE, URINE (test code = 13770) SPECIMEN NUMBER: [id number] Delfino Cedeño, [id number] 00:00:00* Test Item Value Reference Range Interpretation Comme nts CULTURE, URINE (test code = 66564) SPECIMEN NUMBER: [id number] Delfino Cedeño, [id number] 00:00:00* Test Item Value Reference Range Interpretation Comme nts CULTURE, URINE (test code = 39386) SPECIMEN NUMBER: [id number] Delfino Cedeño, [id number] 00:00:00* Test Item Value Reference Range Interpretation Comme nts CULTURE, URINE (test code = 95866) SPECIMEN NUMBER: [id number] Delfino Cedeño [id number] 00:00:00* Test Item Value Reference Range Interpretation Comme nts CULTURE, URINE (test code = 55996) SPECIMEN NUMBER: [id number] Delfino Cedeño [id number] 00:00:00* Test Item Value Reference Range Interpretation Comme nts CULTURE, URINE (test code = 55776) SPECIMEN NUMBER: [id number] Delfino Cedeño, [id number] 00:00:00* Test Item Value Reference Range Interpretation Comme nts CULTURE, URINE (test code = 01115) SPECIMEN NUMBER: [id number] Delfino Cedeño, [id number] 00:00:00* Test Item Value Reference Range Interpretation Comme nts CULTURE, URINE (test code = 67373) SPECIMEN NUMBER: [id number] Delfino Cedeño, [id number] 00:00:00* Test Item Value Reference Range Interpretation Comme nts CULTURE, URINE (test code = 76544) SPECIMEN NUMBER: [id number] Delfino Cedeño, [id number] 00:00:00* Test Item Value Reference Range Interpretation Comme nts CULTURE, URINE (test code = 91790) SPECIMEN NUMBER: [id number] Delfino Cedeño, [id number] 00:00:00* Test Item Value Reference Range Interpretation Comme nts CULTURE, URINE (test code = 75345) SPECIMEN NUMBER: [id number] Delfino Cedeño, [id number] 00:00:00* Test Item Value Reference Range Interpretation Comme nts CULTURE, URINE (test code = 40657) SPECIMEN NUMBER: [id number] Delfino Cedeño, [id number] 00:00:00* Test Item Value Reference Range Interpretation Comme nts CULTURE, URINE (test code = 03618) SPECIMEN NUMBER: [id number] Delfino Cedeño, [id number] 00:00:00* Test Item Value Reference Range Interpretation Comme nts CULTURE, URINE (test code = 93133) SPECIMEN NUMBER: [id number] Delfino Cedeño [id number] 00:00:00* Test Item Value Reference Range Interpretation Comme nts CULTURE, URINE (test code = 45703) SPECIMEN NUMBER: [id number] Delfino Cedeño, [id number] 00:00:00* Test Item Value Reference Range Interpretation Comme nts CULTURE, URINE (test code = 11399) SPECIMEN NUMBER: [id number] Delfino Cedeño, [id number] 00:00:00* Test Item Value Reference Range Interpretation Comme nts CULTURE, URINE (test code = 52139) SPECIMEN NUMBER: [id number] Delfino Cedeño, [id number] 00:00:00* Test Item Value Reference Range Interpretation Comme nts CULTURE, URINE (test code = 08488) SPECIMEN NUMBER: [id number] Delfino Cedeño, [id number] 00:00:00* Test Item Value Reference Range Interpretation Comme nts CULTURE, URINE (test code = 09842) SPECIMEN NUMBER: [id number] Delfino Cedeño, [id number] 00:00:00* Test Item Value Reference Range Interpretation Comme nts CULTURE, URINE (test code = 45821) SPECIMEN NUMBER: [id number] Delfino Cedeño, [id number] 00:00:00* Test Item Value Reference Range Interpretation Comme nts CULTURE, URINE (test code = 81973) SPECIMEN NUMBER: [id number] Delfino Cedeño, [id number] 00:00:00* Test Item Value Reference Range Interpretation Comme nts CULTURE, URINE (test code = 53054) SPECIMEN NUMBER: [id number] Delfino Cedeño, [id number] 00:00:00* Test Item Value Reference Range Interpretation Comme nts CULTURE, URINE (test code = 88199) SPECIMEN NUMBER: [id number] Delfino Cedeño, [id number] 00:00:00* Test Item Value Reference Range Interpretation Comme nts CULTURE, URINE (test code = 45998) SPECIMEN NUMBER: [id number] Delfino Cedeño, [id number] 00:00:00* Test Item Value Reference Range Interpretation Comme nts CULTURE, URINE (test code = 02060) SPECIMEN NUMBER: [id number] URINALYSIS WITH [id number] 07:51:12* Test Item Value Reference Range Interpretation [...] code = 1510) 0.2 MG/DL See_Comment [Automated [employer]] The system which generated this result [...] 0-5 A EPITHELIAL CELLS (test code = 49450) 0-5 /HPF 0-10 BACTERIA (test code = 1515) 3+ NONE SEEN A CASTS, HYALINE (test code = 1517) TRACE NONE-TRACE UNLESS OTHERWISE INDICATED, [facility] TEST[facility] [address] [place] [id number] [employer] MANAGER: ALYSSIA FRASER M.D. CLIA NUMBER [id number] [place]. [id number] URINALYSIS WITH [id number] 00:00:00* Test Item Value Reference Range Interpretation [...] >50 /HPF EPITHELIAL CELLS (test code = 60531) 0-5 /HPF BACTERIA (test code = 1515) 3+ CASTS, HYALINE (test code = 1517) TRACE URINALYSIS WITH [id number] 00:00:00* Test Item Value Reference Range Interpretation [...] >50 /HPF EPITHELIAL CELLS (test code = 71348) 0-5 /HPF BACTERIA (test code = 1515) 3+ CASTS, HYALINE (test code = 1517) TRACE URINALYSIS WITH [id number] 00:00:00* Test Item Value Reference Range Interpretation [...] >50 /HPF EPITHELIAL CELLS (test code = 10090) 0-5 /HPF BACTERIA (test code = 1515) 3+ CASTS, HYALINE (test code = 1517) TRACE URINALYSIS WITH [id number] 00:00:00* Test Item Value Reference Range Interpretation [...] >50 /HPF EPITHELIAL CELLS (test code = 25615) 0-5 /HPF BACTERIA (test code = 1515) 3+ CASTS, HYALINE (test code = 1517) TRACE URINALYSIS WITH [id number] 00:00:00* Test Item Value Reference Range Interpretation [...] >50 /HPF EPITHELIAL CELLS (test code = 86281) 0-5 /HPF BACTERIA (test code = 1515) 3+ CASTS, HYALINE (test code = 1517) TONY Schumacher AustinURINALYSIS WITH [id number] 00:00:00* Test Item Value Reference Range Interpretation [...] >50 /HPF EPITHELIAL CELLS (test code = 25243) 0-5 /HPF BACTERIA (test code = 1515) 3+ CASTS, HYALINE (test code = 1517) TONY Schumacher AustinURINALYSIS WITH [id number] 00:00:00* Test Item Value Reference Range Interpretation [...] >50 /HPF EPITHELIAL CELLS (test code = 98131) 0-5 /HPF BACTERIA (test code = 1515) 3+ CASTS, HYALINE (test code = 1517) TONY Schumacher AustinURINALYSIS WITH [id number] 00:00:00* Test Item Value Reference Range Interpretation [...] >50 /HPF EPITHELIAL CELLS (test code = 27008) 0-5 /HPF BACTERIA (test code = 1515) 3+ CASTS, HYALINE (test code = 1517) TONY Schumacher AustinURINALYSIS WITH [id number] 00:00:00* Test Item Value Reference Range Interpretation [...] >50 /HPF EPITHELIAL CELLS (test code = 21562) 0-5 /HPF BACTERIA (test code = 1515) 3+ CASTS, HYALINE (test code = 1517) TONY Schumacher AustinURINALYSIS WITH [id number] 00:00:00* Test Item Value Reference Range Interpretation [...] >50 /HPF EPITHELIAL CELLS (test code = 96543) 0-5 /HPF BACTERIA (test code = 1515) 3+ CASTS, HYALINE (test code = 1517) TONY Schumacher AustinURINALYSIS WITH [id number] 00:00:00* Test Item Value Reference Range Interpretation [...] >50 /HPF EPITHELIAL CELLS (test code = 37771) 0-5 /HPF BACTERIA (test code = 1515) 3+ CASTS, HYALINE (test code = 1517) TRACE Delfino Schumacher AustinURINALYSIS WITH [id number] 00:00:00* Test Item Value Reference Range Interpretation [...] >50 /HPF EPITHELIAL CELLS (test code = 17441) 0-5 /HPF BACTERIA (test code = 1515) 3+ CASTS, HYALINE (test code = 1517) TONY Schumacher AustinURINALYSIS WITH [id number] 00:00:00* Test Item Value Reference Range Interpretation [...] >50 /HPF EPITHELIAL CELLS (test code = 30593) 0-5 /HPF BACTERIA (test code = 1515) 3+ CASTS, HYALINE (test code = 1517) TONY Schumacher AustinURINALYSIS WITH [id number] 00:00:00* Test Item Value Reference Range Interpretation [...] >50 /HPF EPITHELIAL CELLS (test code = 41419) 0-5 /HPF BACTERIA (test code = 1515) 3+ CASTS, HYALINE (test code = 1517) TONY Schumacher AustinURINALYSIS WITH [id number] 00:00:00* Test Item Value Reference Range Interpretation [...] >50 /HPF EPITHELIAL CELLS (test code = 49821) 0-5 /HPF BACTERIA (test code = 1515) 3+ CASTS, HYALINE (test code = 1517) TONY Schumacher AustinURINALYSIS WITH [id number] 00:00:00* Test Item Value Reference Range Interpretation [...] >50 /HPF EPITHELIAL CELLS (test code = 33873) 0-5 /HPF BACTERIA (test code = 1515) 3+ CASTS, HYALINE (test code = 1517) TONY Schumacher AustinURINALYSIS WITH [id number] 00:00:00* Test Item Value Reference Range Interpretation [...] >50 /HPF EPITHELIAL CELLS (test code = 98924) 0-5 /HPF BACTERIA (test code = 1515) 3+ CASTS, HYALINE (test code = 1517) TONY Schumacher AustinURINALYSIS WITH [id number] 00:00:00* Test Item Value Reference Range Interpretation [...] >50 /HPF EPITHELIAL CELLS (test code = 92165) 0-5 /HPF BACTERIA (test code = 1515) 3+ CASTS, HYALINE (test code = 1517) TONY Schumacher AustinURINALYSIS WITH [id number] 00:00:00* Test Item Value Reference Range Interpretation [...] >50 /HPF EPITHELIAL CELLS (test code = 42055) 0-5 /HPF BACTERIA (test code = 1515) 3+ CASTS, HYALINE (test code = 1517) TRACE Delfino Schumacher AustinURINALYSIS WITH [id number] 00:00:00* Test Item Value Reference Range Interpretation [...] >50 /HPF EPITHELIAL CELLS (test code = 36976) 0-5 /HPF BACTERIA (test code = 1515) 3+ CASTS, HYALINE (test code = 1517) TRACE Delfino F AustinURINALYSIS WITH [id number] 00:00:00* Test Item Value Reference Range Interpretation [...] >50 /HPF EPITHELIAL CELLS (test code = 23000) 0-5 /HPF BACTERIA (test code = 1515) 3+ CASTS, HYALINE (test code = 1517) TONY Schumacher AustinURINALYSIS WITH [id number] 00:00:00* Test Item Value Reference Range Interpretation [...] >50 /HPF EPITHELIAL CELLS (test code = 99739) 0-5 /HPF BACTERIA (test code = 1515) 3+ CASTS, HYALINE (test code = 1517) TONY Schumacher AustinURINALYSIS WITH [id number] 00:00:00* Test Item Value Reference Range Interpretation [...] >50 /HPF EPITHELIAL CELLS (test code = 37956) 0-5 /HPF BACTERIA (test code = 1515) 3+ CASTS, HYALINE (test code = 1517) TONY Schumacher AustinURINALYSIS WITH [id number] 00:00:00* Test Item Value Reference Range Interpretation [...] >50 /HPF EPITHELIAL CELLS (test code = 35438) 0-5 /HPF BACTERIA (test code = 1515) 3+ CASTS, HYALINE (test code = 1517) TONY Schumacher AustinURINALYSIS WITH [id number] 00:00:00* Test Item Value Reference Range Interpretation [...] >50 /HPF EPITHELIAL CELLS (test code = 89899) 0-5 /HPF BACTERIA (test code = 1515) 3+ CASTS, HYALINE (test code = 1517) TONY Schumacher AustinURINALYSIS WITH [id number] 00:00:00* Test Item Value Reference Range Interpretation [...] >50 /HPF EPITHELIAL CELLS (test code = 33756) 0-5 /HPF BACTERIA (test code = 1515) 3+ CASTS, HYALINE (test code = 1517) TONY Schumacher AustinURINALYSIS WITH [id number] 00:00:00* Test Item Value Reference Range Interpretation [...] >50 /HPF EPITHELIAL CELLS (test code = 67829) 0-5 /HPF BACTERIA (test code = 1515) 3+ CASTS, HYALINE (test code = 1517) TONY Schumacher AustinURINALYSIS WITH [id number] 00:00:00* Test Item Value Reference Range Interpretation [...] >50 /HPF EPITHELIAL CELLS (test code = 91977) 0-5 /HPF BACTERIA (test code = 1515) 3+ CASTS, HYALINE (test code = 1517) TRACE Delfino Schumacher AustinURINALYSIS WITH [id number] 00:00:00* Test Item Value Reference Range Interpretation [...] >50 /HPF EPITHELIAL CELLS (test code = 81467) 0-5 /HPF BACTERIA (test code = 1515) 3+ CASTS, HYALINE (test code = 1517) TRACE Delfino F AustinURINALYSIS WITH [id number] 00:00:00* Test Item Value Reference Range Interpretation [...] >50 /HPF EPITHELIAL CELLS (test code = 30255) 0-5 /HPF BACTERIA (test code = 1515) 3+ CASTS, HYALINE (test code = 1517) TONY Schumacher AustinURINALYSIS WITH [id number] 00:00:00* Test Item Value Reference Range Interpretation [...] >50 /HPF EPITHELIAL CELLS (test code = 94370) 0-5 /HPF BACTERIA (test code = 1515) 3+ CASTS, HYALINE (test code = 1517) TONY Schumacher AustinURINALYSIS WITH [id number] 00:00:00* Test Item Value Reference Range Interpretation [...] >50 /HPF EPITHELIAL CELLS (test code = 01421) 0-5 /HPF BACTERIA (test code = 1515) 3+ CASTS, HYALINE (test code = 1517) TONY Schumacher AustinURINALYSIS WITH [id number] 00:00:00* Test Item Value Reference Range Interpretation [...] >50 /HPF EPITHELIAL CELLS (test code = 03734) 0-5 /HPF BACTERIA (test code = 1515) 3+ CASTS, HYALINE (test code = 1517) TONY OrtaURINALYSIS WITH [id number] 00:00:00* Test Item Value Reference Range Interpretation [...] >50 /HPF EPITHELIAL CELLS (test code = 65685) 0-5 /HPF BACTERIA (test code = 1515) 3+ CASTS, HYALINE (test code = 1517) TONY Schumacher AustinURINALYSIS WITH [id number] 00:00:00* Test Item Value Reference Range Interpretation [...] >50 /HPF EPITHELIAL CELLS (test code = 32412) 0-5 /HPF BACTERIA (test code = 1515) 3+ CASTS, HYALINE (test code = 1517) TONY Schumacher AustinURINALYSIS WITH [id number] 00:00:00* Test Item Value Reference Range Interpretation [...] >50 /HPF EPITHELIAL CELLS (test code = 07039) 0-5 /HPF BACTERIA (test code = 1515) 3+ CASTS, HYALINE (test code = 1517) TONY Schumacher AustinURINALYSIS WITH [id number] 00:00:00* Test Item Value Reference Range Interpretation [...] >50 /HPF EPITHELIAL CELLS (test code = 81904) 0-5 /HPF BACTERIA (test code = 1515) 3+ CASTS, HYALINE (test code = 1517) TONY Schumacher AustinURINALYSIS WITH [id number] 00:00:00* Test Item Value Reference Range Interpretation [...] >50 /HPF EPITHELIAL CELLS (test code = 12678) 0-5 /HPF BACTERIA (test code = 1515) 3+ CASTS, HYALINE (test code = 1517) TONY OrtaCOMPREHENSIVE METABOLIC [id number] 00:00:00* Test Item Value Reference Range Interpretation Comme nts GLUCOSE (test code = 2217) 80 MG/DL BUN (test code = 2208) 18 MG/DL CREATININE (test code = 2214) 1.06 MG/DL eGFR AMER. (test cod e = 19485) 67 ML/MIN/1.73 eGFR NON- AMER. (test code = 63417) 58 ML/MIN/1.73 CALC BUN/CREAT (test code = [...] code = 2219) 54 U/L CBC W/AUTO [id number] 00:00:00* Test Item Value Reference Range Interpretation [...] ABS NUCLEATED RBCS (test cod e = 76367) 0.00 K/UL COMMENTS (test code = 1016) (NOTE) LIPID [id number] 00:00:00* Test Item Value Reference Range Interpretation Comme nts CHOLESTEROL (test code = 2210) 174 MG/DL TRIGLYCERIDES (test code = 2232) 63 MG/DL HDL CHOLESTEROL (test code = 2220) 87 MG/DL CALC LDL CHOL (test code = 2237) 73 MG/DL RISK RATIO LDL/HDL (test cod e = 2238) 0.84 RATIO COMPREHENSIVE METABOLIC [id number] 00:00:00* Test Item Value Reference Range Interpretation Comme nts GLUCOSE (test code = 2217) 80 MG/DL BUN (test code = 2208) 18 MG/DL CREATININE (test code = 2214) 1.06 MG/DL eGFR AMER. (test cod e = 45798) 67 ML/MIN/1.73 eGFR NON- AMER. (test code = 23008) 58 ML/MIN/1.73 CALC BUN/CREAT (test code = [...] code = 2219) 54 U/L CBC W/AUTO [id number] 00:00:00* Test Item Value Reference Range Interpretation [...] ABS NUCLEATED RBCS (test cod e = 60298) 0.00 K/UL COMMENTS (test code = 1016) (NOTE) LIPID [id number] 00:00:00* Test Item Value Reference Range Interpretation Comme nts CHOLESTEROL (test code = 2210) 174 MG/DL TRIGLYCERIDES (test code = 2232) 63 MG/DL HDL CHOLESTEROL (test code = 2220) 87 MG/DL CALC LDL CHOL (test code = 2237) 73 MG/DL RISK RATIO LDL/HDL (test cod e = 2238) 0.84 RATIO COMPREHENSIVE METABOLIC [id number] 00:00:00* Test Item Value Reference Range Interpretation Comme nts GLUCOSE (test code = 2217) 80 MG/DL BUN (test code = 2208) 18 MG/DL CREATININE (test code = 2214) 1.06 MG/DL eGFR AMER. (test cod e = 48832) 67 ML/MIN/1.73 eGFR NON- AMER. (test code = 77039) 58 ML/MIN/1.73 CALC BUN/CREAT (test code = [...] code = 2219) 54 U/L CBC W/AUTO [id number] 00:00:00* Test Item Value Reference Range Interpretation [...] ABS NUCLEATED RBCS (test cod e = 96251) 0.00 K/UL COMMENTS (test code = 1016) (NOTE) LIPID [id number] 00:00:00* Test Item Value Reference Range Interpretation Comme nts CHOLESTEROL (test code = 2210) 174 MG/DL TRIGLYCERIDES (test code = 2232) 63 MG/DL HDL CHOLESTEROL (test code = 2220) 87 MG/DL CALC LDL CHOL (test code = 2237) 73 MG/DL RISK RATIO LDL/HDL (test cod e = 2238) 0.84 RATIO COMPREHENSIVE METABOLIC [id number] 00:00:00* Test Item Value Reference Range Interpretation Comme nts GLUCOSE (test code = 2217) 80 MG/DL BUN (test code = 2208) 18 MG/DL CREATININE (test code = 2214) 1.06 MG/DL eGFR AMER. (test cod e = 17180) 67 ML/MIN/1.73 eGFR NON- AMER. (test code = 10274) 58 ML/MIN/1.73 CALC BUN/CREAT (test code = [...] code = 2219) 54 U/L COMPREHENSIVE METABOLIC [id number] 00:00:00* Test Item Value Reference Range Interpretation Comme nts GLUCOSE (test code = 2217) 80 MG/DL BUN (test code = 2208) 18 MG/DL CREATININE (test code = 2214) 1.06 MG/DL eGFR AMER. (test cod e = 68291) 67 ML/MIN/1.73 eGFR NON- AMER. (test code = 82768) 58 ML/MIN/1.73 CALC BUN/CREAT (test code = [...] (test code = 2219) 54 U/L [facility]ino [facility] W/AUTO [id number] 00:00:00* Test Item Value Reference Range Interpretation [...] ABS NUCLEATED RBCS (test cod e = 06541) 0.00 K/UL COMMENTS (test code = 1016) (NOTE) Delfino Schumacher [facility] W/AUTO [id number] 00:00:00* Test Item Value Reference Range Interpretation [...] ABS NUCLEATED RBCS (test cod e = 05113) 0.00 K/UL COMMENTS (test code = 1016) (NOTE) Delfino OrtaLIPID [id number] 00:00:00* Test Item Value Reference Range Interpretation Comme nts CHOLESTEROL (test code = 2210) 174 MG/DL TRIGLYCERIDES (test code = 2232) 63 MG/DL HDL CHOLESTEROL (test code = 2220) 87 MG/DL CALC LDL CHOL (test code = 2237) 73 MG/DL RISK RATIO LDL/HDL (test cod e = 2238) 0.84 RATIO Delfino OrtaCOMPREHENSIVE METABOLIC [id number] 00:00:00* Test Item Value Reference Range Interpretation Comme nts GLUCOSE (test code = 2217) 80 MG/DL BUN (test code = 2208) 18 MG/DL CREATININE (test code = 2214) 1.06 MG/DL eGFR AMER. (test cod e = 59699) 67 ML/MIN/1.73 eGFR NON- AMER. (test code = 98227) 58 ML/MIN/1.73 CALC BUN/CREAT (test code = [...] = 2219) 54 U/L Delfino OrtaCBC W/AUTO [id number] 00:00:00* Test Item Value Reference Range Interpretation [...] ABS NUCLEATED RBCS (test cod e = 43868) 0.00 K/UL COMMENTS (test code = 1016) (NOTE) Delfino Schumacher AustinLIPID [id number] 00:00:00* Test Item Value Reference Range Interpretation Comme nts CHOLESTEROL (test code = 2210) 174 MG/DL TRIGLYCERIDES (test code = 2232) 63 MG/DL HDL CHOLESTEROL (test code = 2220) 87 MG/DL CALC LDL CHOL (test code = 2237) 73 MG/DL RISK RATIO LDL/HDL (test cod e = 2238) 0.84 RATIO Delfino OrtaCOMPREHENSIVE METABOLIC [id number] 00:00:00* Test Item Value Reference Range Interpretation Comme nts GLUCOSE (test code = 2217) 80 MG/DL BUN (test code = 2208) 18 MG/DL CREATININE (test code = 2214) 1.06 MG/DL eGFR AMER. (test cod e = 54421) 67 ML/MIN/1.73 eGFR NON- AMER. (test code = 78504) 58 ML/MIN/1.73 CALC BUN/CREAT (test code = [...] code = 2219) 54 U/L Delfino Schumacher [facility] W/AUTO [id number] 00:00:00* Test Item Value Reference Range Interpretation [...] ABS NUCLEATED RBCS (test cod e = 62000) 0.00 K/UL COMMENTS (test code = 1016) (NOTE) Delfino Schumacher AustinLIPID [id number] 00:00:00* Test Item Value Reference Range Interpretation Comme nts CHOLESTEROL (test code = 2210) 174 MG/DL TRIGLYCERIDES (test code = 2232) 63 MG/DL HDL CHOLESTEROL (test code = 2220) 87 MG/DL CALC LDL CHOL (test code = 2237) 73 MG/DL RISK RATIO LDL/HDL (test cod e = 2238) 0.84 RATIO Delfino Schumacher AustinLIPID [id number] 00:00:00* Test Item Value Reference Range Interpretation Comme nts CHOLESTEROL (test code = 2210) 174 MG/DL TRIGLYCERIDES (test code = 2232) 63 MG/DL HDL CHOLESTEROL (test code = 2220) 87 MG/DL CALC LDL CHOL (test code = 2237) 73 MG/DL RISK RATIO LDL/HDL (test cod e = 2238) 0.84 RATIO Delfino OrtaCOMPREHENSIVE METABOLIC [id number] 00:00:00* Test Item Value Reference Range Interpretation Comme nts GLUCOSE (test code = 2217) 80 MG/DL BUN (test code = 2208) 18 MG/DL CREATININE (test code = 2214) 1.06 MG/DL eGFR AMER. (test cod e = 66016) 67 ML/MIN/1.73 eGFR NON- AMER. (test code = 64592) 58 ML/MIN/1.73 CALC BUN/CREAT (test code = [...] = 2219) 54 U/L Delfino OrtaCBC W/AUTO [id number] 00:00:00* Test Item Value Reference Range Interpretation [...] ABS NUCLEATED RBCS (test cod e = 33599) 0.00 K/UL COMMENTS (test code = 1016) (NOTE) Delfino OrtaLIPID [id number] 00:00:00* Test Item Value Reference Range Interpretation Comme nts CHOLESTEROL (test code = 2210) 174 MG/DL TRIGLYCERIDES (test code = 2232) 63 MG/DL HDL CHOLESTEROL (test code = 2220) 87 MG/DL CALC LDL CHOL (test code = 2237) 73 MG/DL RISK RATIO LDL/HDL (test cod e = 2238) 0.84 RATIO Delfino F AustinCOMPREHENSIVE METABOLIC [id number] 00:00:00* Test Item Value Reference Range Interpretation Comme nts GLUCOSE (test code = 2217) 80 MG/DL BUN (test code = 2208) 18 MG/DL CREATININE (test code = 2214) 1.06 MG/DL eGFR AMER. (test cod e = 86914) 67 ML/MIN/1.73 eGFR NON- AMER. (test code = 26859) 58 ML/MIN/1.73 CALC BUN/CREAT (test code = [...] = 2219) 54 U/L Delfino OrtaCBC W/AUTO [id number] 00:00:00* Test Item Value Reference Range Interpretation [...] ABS NUCLEATED RBCS (test cod e = 79293) 0.00 K/UL COMMENTS (test code = 1016) (NOTE) Delfino Schumacher YouCOMPREHENSIVE METABOLIC [id number] 00:00:00* Test Item Value Reference Range Interpretation Comme nts GLUCOSE (test code = 2217) 80 MG/DL BUN (test code = 2208) 18 MG/DL CREATININE (test code = 2214) 1.06 MG/DL eGFR AMER. (test cod e = 16925) 67 ML/MIN/1.73 eGFR NON- AMER. (test code = 53093) 58 ML/MIN/1.73 CALC BUN/CREAT (test code = [...] = 2219) 54 U/L Delfino Schumacher YouLIPID [id number] 00:00:00* Test Item Value Reference Range Interpretation Comme nts CHOLESTEROL (test code = 2210) 174 MG/DL TRIGLYCERIDES (test code = 2232) 63 MG/DL HDL CHOLESTEROL (test code = 2220) 87 MG/DL CALC LDL CHOL (test code = 2237) 73 MG/DL RISK RATIO LDL/HDL (test cod e = 2238) 0.84 RATIO Delfino OrtaCOMPREHENSIVE METABOLIC [id number] 00:00:00* Test Item Value Reference Range Interpretation Comme nts GLUCOSE (test code = 2217) 80 MG/DL BUN (test code = 2208) 18 MG/DL CREATININE (test code = 2214) 1.06 MG/DL eGFR AMER. (test cod e = 04015) 67 ML/MIN/1.73 eGFR NON- AMER. (test code = 84140) 58 ML/MIN/1.73 CALC BUN/CREAT (test code = [...] = 2219) 54 U/L Delfino OrtaCBC W/AUTO [id number] 00:00:00* Test Item Value Reference Range Interpretation [...] ABS NUCLEATED RBCS (test cod e = 32981) 0.00 K/UL COMMENTS (test code = 1016) (NOTE) Delfino Schumacher AustinLIPID [id number] 00:00:00* Test Item Value Reference Range Interpretation Comme nts CHOLESTEROL (test code = 2210) 174 MG/DL TRIGLYCERIDES (test code = 2232) 63 MG/DL HDL CHOLESTEROL (test code = 2220) 87 MG/DL CALC LDL CHOL (test code = 2237) 73 MG/DL RISK RATIO LDL/HDL (test cod e = 2238) 0.84 RATIO Delfino OrtaCOMPREHENSIVE METABOLIC [id number] 00:00:00* Test Item Value Reference Range Interpretation Comme nts GLUCOSE (test code = 2217) 80 MG/DL BUN (test code = 2208) 18 MG/DL CREATININE (test code = 2214) 1.06 MG/DL eGFR AMER. (test cod e = 65890) 67 ML/MIN/1.73 eGFR NON- AMER. (test code = 15301) 58 ML/MIN/1.73 CALC BUN/CREAT (test code = [...] code = 2219) 54 U/L Delfino Schumacher [facility] W/AUTO [id number] 00:00:00* Test Item Value Reference Range Interpretation [...] ABS NUCLEATED RBCS (test cod e = 02614) 0.00 K/UL COMMENTS (test code = 1016) (NOTE) Delfino OrtaLIPID [id number] 00:00:00* Test Item Value Reference Range Interpretation Comme nts CHOLESTEROL (test code = 2210) 174 MG/DL TRIGLYCERIDES (test code = 2232) 63 MG/DL HDL CHOLESTEROL (test code = 2220) 87 MG/DL CALC LDL CHOL (test code = 2237) 73 MG/DL RISK RATIO LDL/HDL (test cod e = 2238) 0.84 RATIO Delfino OrtaCOMPREHENSIVE METABOLIC [id number] 00:00:00* Test Item Value Reference Range Interpretation Comme nts GLUCOSE (test code = 2217) 80 MG/DL BUN (test code = 2208) 18 MG/DL CREATININE (test code = 2214) 1.06 MG/DL eGFR AMER. (test cod e = 94517) 67 ML/MIN/1.73 eGFR NON- AMER. (test code = 57057) 58 ML/MIN/1.73 CALC BUN/CREAT (test code = [...] = 2219) 54 U/L Delfino OrtaCBC W/AUTO [id number] 00:00:00* Test Item Value Reference Range Interpretation [...] ABS NUCLEATED RBCS (test cod e = 97505) 0.00 K/UL COMMENTS (test code = 1016) (NOTE) Delfino Endy AustinLIPID [id number] 00:00:00* Test Item Value Reference Range Interpretation Comme nts CHOLESTEROL (test code = 2210) 174 MG/DL TRIGLYCERIDES (test code = 2232) 63 MG/DL HDL CHOLESTEROL (test code = 2220) 87 MG/DL CALC LDL CHOL (test code = 2237) 73 MG/DL RISK RATIO LDL/HDL (test cod e = 2238) 0.84 RATIO Delfino OrtaCOMPREHENSIVE METABOLIC [id number] 00:00:00* Test Item Value Reference Range Interpretation Comme nts GLUCOSE (test code = 2217) 80 MG/DL BUN (test code = 2208) 18 MG/DL CREATININE (test code = 2214) 1.06 MG/DL eGFR AMER. (test cod e = 75055) 67 ML/MIN/1.73 eGFR NON- AMER. (test code = 70752) 58 ML/MIN/1.73 CALC BUN/CREAT (test code = [...] code = 2219) 52 U/L Delfino Schumacher [facility] W/AUTO [id number] 00:00:00* Test Item Value Reference Range Interpretation [...] ABS NUCLEATED RBCS (test cod e = 01495) 0.00 K/UL COMMENTS (test code = 1016) (NOTE) Delfino OrtaLIPID [id number] 00:00:00* Test Item Value Reference Range Interpretation Comme nts CHOLESTEROL (test code = 2210) 174 MG/DL TRIGLYCERIDES (test code = 2232) 63 MG/DL HDL CHOLESTEROL (test code = 2220) 87 MG/DL CALC LDL CHOL (test code = 2237) 73 MG/DL RISK RATIO LDL/HDL (test cod e = 2238) 0.84 RATIO Delfino OrtaCOMPREHENSIVE METABOLIC [id number] 00:00:00* Test Item Value Reference Range Interpretation Comme nts GLUCOSE (test code = 2217) 80 MG/DL BUN (test code = 2208) 18 MG/DL CREATININE (test code = 2214) 1.06 MG/DL eGFR AMER. (test cod e = 54198) 67 ML/MIN/1.73 eGFR NON- AMER. (test code = 12946) 58 ML/MIN/1.73 CALC BUN/CREAT (test code = [...] = 2219) 52 U/L Delfino OrtaCBC W/AUTO [id number] 00:00:00* Test Item Value Reference Range Interpretation [...] ABS NUCLEATED RBCS (test cod e = 94844) 0.00 K/UL COMMENTS (test code = 1016) (NOTE) Delfino Endy AustinLIPID [id number] 00:00:00* Test Item Value Reference Range Interpretation Comme nts CHOLESTEROL (test code = 2210) 174 MG/DL TRIGLYCERIDES (test code = 2232) 63 MG/DL HDL CHOLESTEROL (test code = 2220) 87 MG/DL CALC LDL CHOL (test code = 2237) 73 MG/DL RISK RATIO LDL/HDL (test cod e = 2238) 0.84 RATIO Delfino OrtaCOMPREHENSIVE METABOLIC [id number] 00:00:00* Test Item Value Reference Range Interpretation Comme nts GLUCOSE (test code = 2217) 80 MG/DL BUN (test code = 2208) 18 MG/DL CREATININE (test code = 2214) 1.06 MG/DL eGFR AMER. (test cod e = 44866) 67 ML/MIN/1.73 eGFR NON- AMER. (test code = 15361) 58 ML/MIN/1.73 CALC BUN/CREAT (test code = [...] code = 2219) 54 U/L Delfino Schumacher [facility] W/AUTO [id number] 00:00:00* Test Item Value Reference Range Interpretation [...] ABS NUCLEATED RBCS (test cod e = 98096) 0.00 K/UL COMMENTS (test code = 1016) (NOTE) Delfino Schumacher AustinLIPID [id number] 00:00:00* Test Item Value Reference Range Interpretation Comme nts CHOLESTEROL (test code = 2210) 174 MG/DL TRIGLYCERIDES (test code = 2232) 63 MG/DL HDL CHOLESTEROL (test code = 2220) 87 MG/DL CALC LDL CHOL (test code = 2237) 73 MG/DL RISK RATIO LDL/HDL (test cod e = 2238) 0.84 RATIO Delfino OrtaCOMPREHENSIVE METABOLIC [id number] 00:00:00* Test Item Value Reference Range Interpretation Comme nts GLUCOSE (test code = 2217) 80 MG/DL BUN (test code = 2208) 18 MG/DL CREATININE (test code = 2214) 1.06 MG/DL eGFR AMER. (test cod e = 75716) 67 ML/MIN/1.73 eGFR NON- AMER. (test code = 03078) 58 ML/MIN/1.73 CALC BUN/CREAT (test code = [...] = 2219) 54 U/L Delfino OrtaCBC W/AUTO [id number] 00:00:00* Test Item Value Reference Range Interpretation [...] ABS NUCLEATED RBCS (test cod e = 77140) 0.00 K/UL COMMENTS (test code = 1016) (NOTE) Delfino Schumacher AustinLIPID [id number] 00:00:00* Test Item Value Reference Range Interpretation Comme nts CHOLESTEROL (test code = 2210) 174 MG/DL TRIGLYCERIDES (test code = 2232) 63 MG/DL HDL CHOLESTEROL (test code = 2220) 87 MG/DL CALC LDL CHOL (test code = 2237) 73 MG/DL RISK RATIO LDL/HDL (test cod e = 2238) 0.84 RATIO Delfino OrtaCOMPREHENSIVE METABOLIC [id number] 00:00:00* Test Item Value Reference Range Interpretation Comme nts GLUCOSE (test code = 2217) 80 MG/DL BUN (test code = 2208) 18 MG/DL CREATININE (test code = 2214) 1.06 MG/DL eGFR AMER. (test cod e = 59763) 67 ML/MIN/1.73 eGFR NON- AMER. (test code = 58819) 58 ML/MIN/1.73 CALC BUN/CREAT (test code = [...] code = 2219) 52 U/L Delfino Endy [facility] W/AUTO [id number] 00:00:00* Test Item Value Reference Range Interpretation [...] ABS NUCLEATED RBCS (test cod e = 17284) 0.00 K/UL COMMENTS (test code = 1016) (NOTE) Delfino Schumacher AustinLIPID [id number] 00:00:00* Test Item Value Reference Range Interpretation Comme nts CHOLESTEROL (test code = 2210) 174 MG/DL TRIGLYCERIDES (test code = 2232) 63 MG/DL HDL CHOLESTEROL (test code = 2220) 87 MG/DL CALC LDL CHOL (test code = 2237) 73 MG/DL RISK RATIO LDL/HDL (test cod e = 2238) 0.84 RATIO Delfino OrtaCOMPREHENSIVE METABOLIC [id number] 00:00:00* Test Item Value Reference Range Interpretation Comme nts GLUCOSE (test code = 2217) 80 MG/DL BUN (test code = 2208) 18 MG/DL CREATININE (test code = 2214) 1.06 MG/DL eGFR AMER. (test cod e = 86995) 67 ML/MIN/1.73 eGFR NON- AMER. (test code = 56172) 58 ML/MIN/1.73 CALC BUN/CREAT (test code = [...] = 2219) 54 U/L Delfino OrtaCBC W/AUTO [id number] 00:00:00* Test Item Value Reference Range Interpretation [...] ABS NUCLEATED RBCS (test cod e = 25136) 0.00 K/UL COMMENTS (test code = 1016) (NOTE) Delfino OrtaLIPID [id number] 00:00:00* Test Item Value Reference Range Interpretation Comme nts CHOLESTEROL (test code = 2210) 174 MG/DL TRIGLYCERIDES (test code = 2232) 63 MG/DL HDL CHOLESTEROL (test code = 2220) 87 MG/DL CALC LDL CHOL (test code = 2237) 73 MG/DL RISK RATIO LDL/HDL (test cod e = 2238) 0.84 RATIO Delfino OrtaCOMPREHENSIVE METABOLIC [id number] 00:00:00* Test Item Value Reference Range Interpretation Comme nts GLUCOSE (test code = 2217) 80 MG/DL BUN (test code = 2208) 18 MG/DL CREATININE (test code = 2214) 1.06 MG/DL eGFR AMER. (test cod e = 84340) 67 ML/MIN/1.73 eGFR NON- AMER. (test code = 17963) 58 ML/MIN/1.73 CALC BUN/CREAT (test code = [...] code = 2219) 52 U/L Delfino Schumacher [facility] W/AUTO [id number] 00:00:00* Test Item Value Reference Range Interpretation [...] ABS NUCLEATED RBCS (test cod e = 43731) 0.00 K/UL COMMENTS (test code = 1016) (NOTE) Delfino OrtaLIPID [id number] 00:00:00* Test Item Value Reference Range Interpretation Comme nts CHOLESTEROL (test code = 2210) 174 MG/DL TRIGLYCERIDES (test code = 2232) 63 MG/DL HDL CHOLESTEROL (test code = 2220) 87 MG/DL CALC LDL CHOL (test code = 2237) 73 MG/DL RISK RATIO LDL/HDL (test cod e = 2238) 0.84 RATIO Delfino OrtaCOMPREHENSIVE METABOLIC [id number] 00:00:00* Test Item Value Reference Range Interpretation Comme nts GLUCOSE (test code = 2217) 80 MG/DL BUN (test code = 2208) 18 MG/DL CREATININE (test code = 2214) 1.06 MG/DL eGFR AMER. (test cod e = 51521) 67 ML/MIN/1.73 eGFR NON- AMER. (test code = 16634) 58 ML/MIN/1.73 CALC BUN/CREAT (test code = [...] = 2219) 54 U/L Delfino OrtaCBC W/AUTO [id number] 00:00:00* Test Item Value Reference Range Interpretation [...] ABS NUCLEATED RBCS (test cod e = 31483) 0.00 K/UL COMMENTS (test code = 1016) (NOTE) Delfino OrtaLIPID [id number] 00:00:00* Test Item Value Reference Range Interpretation Comme nts CHOLESTEROL (test code = 2210) 174 MG/DL TRIGLYCERIDES (test code = 2232) 63 MG/DL HDL CHOLESTEROL (test code = 2220) 87 MG/DL CALC LDL CHOL (test code = 2237) 73 MG/DL RISK RATIO LDL/HDL (test cod e = 2238) 0.84 RATIO Delfino OrtaCOMPREHENSIVE METABOLIC [id number] 00:00:00* Test Item Value Reference Range Interpretation Comme nts GLUCOSE (test code = 2217) 80 MG/DL BUN (test code = 2208) 18 MG/DL CREATININE (test code = 2214) 1.06 MG/DL eGFR AMER. (test cod e = 40299) 67 ML/MIN/1.73 eGFR NON- AMER. (test code = 58513) 58 ML/MIN/1.73 CALC BUN/CREAT (test code = [...] = 2219) 54 U/L Delfino OrtaCBC W/AUTO [id number] 00:00:00* Test Item Value Reference Range Interpretation [...] ABS NUCLEATED RBCS (test cod e = 62748) 0.00 K/UL COMMENTS (test code = 1016) (NOTE) Delfino Schumacher AustinLIPID [id number] 00:00:00* Test Item Value Reference Range Interpretation Comme nts CHOLESTEROL (test code = 2210) 174 MG/DL TRIGLYCERIDES (test code = 2232) 63 MG/DL HDL CHOLESTEROL (test code = 2220) 87 MG/DL CALC LDL CHOL (test code = 2237) 73 MG/DL RISK RATIO LDL/HDL (test cod e = 2238) 0.84 RATIO Delfino OrtaCOMPREHENSIVE METABOLIC [id number] 00:00:00* Test Item Value Reference Range Interpretation Comme nts GLUCOSE (test code = 2217) 80 MG/DL BUN (test code = 2208) 18 MG/DL CREATININE (test code = 2214) 1.06 MG/DL eGFR AMER. (test cod e = 31917) 67 ML/MIN/1.73 eGFR NON- AMER. (test code = 10246) 58 ML/MIN/1.73 CALC BUN/CREAT (test code = [...] = 2219) 54 U/L Delfino OrtaCBC W/AUTO [id number] 00:00:00* Test Item Value Reference Range Interpretation [...] ABS NUCLEATED RBCS (test cod e = 81528) 0.00 K/UL COMMENTS (test code = 1016) (NOTE) Delfino OrtaLIPID [id number] 00:00:00* Test Item Value Reference Range Interpretation Comme nts CHOLESTEROL (test code = 2210) 174 MG/DL TRIGLYCERIDES (test code = 2232) 63 MG/DL HDL CHOLESTEROL (test code = 2220) 87 MG/DL CALC LDL CHOL (test code = 2237) 73 MG/DL RISK RATIO LDL/HDL (test cod e = 2238) 0.84 RATIO Delfino OrtaCOMPREHENSIVE METABOLIC [id number] 00:00:00* Test Item Value Reference Range Interpretation Comme nts GLUCOSE (test code = 2217) 80 MG/DL BUN (test code = 2208) 18 MG/DL CREATININE (test code = 2214) 1.06 MG/DL eGFR AMER. (test cod e = 77929) 67 ML/MIN/1.73 eGFR NON- AMER. (test code = 71341) 58 ML/MIN/1.73 CALC BUN/CREAT (test code = [...] 2219) 54 U/L Delfino Schumacher YouCBC W/AUTO [id number] 00:00:00* Test Item Value Reference Range Interpretation [...] ABS NUCLEATED RBCS (test cod e = 72081) 0.00 K/UL COMMENTS (test code = 1016) (NOTE) Delfino Schumacher AustinLIPID [id number] 00:00:00* Test Item Value Reference Range Interpretation Comme nts CHOLESTEROL (test code = 2210) 174 MG/DL TRIGLYCERIDES (test code = 2232) 63 MG/DL HDL CHOLESTEROL (test code = 2220) 87 MG/DL CALC LDL CHOL (test code = 2237) 73 MG/DL RISK RATIO LDL/HDL (test cod e = 2238) 0.84 RATIO Delfino OrtaCOMPREHENSIVE METABOLIC [id number] 00:00:00* Test Item Value Reference Range Interpretation Comme nts GLUCOSE (test code = 2217) 80 MG/DL BUN (test code = 2208) 18 MG/DL CREATININE (test code = 2214) 1.06 MG/DL eGFR AMER. (test cod e = 39155) 67 ML/MIN/1.73 eGFR NON- AMER. (test code = 48354) 58 ML/MIN/1.73 CALC BUN/CREAT (test code = [...] = 2219) 54 U/L Delfino OrtaCBC W/AUTO [id number] 00:00:00* Test Item Value Reference Range Interpretation [...] ABS NUCLEATED RBCS (test cod e = 22131) 0.00 K/UL COMMENTS (test code = 1016) (NOTE) Delfino Endy YouLIPID [id number] 00:00:00* Test Item Value Reference Range Interpretation Comme nts CHOLESTEROL (test code = 2210) 174 MG/DL TRIGLYCERIDES (test code = 2232) 63 MG/DL HDL CHOLESTEROL (test code = 2220) 87 MG/DL CALC LDL CHOL (test code = 2237) 73 MG/DL RISK RATIO LDL/HDL (test cod e = 2238) 0.84 RATIO Delfino OrtaCOMPREHENSIVE METABOLIC [id number] 00:00:00* Test Item Value Reference Range Interpretation Comme nts GLUCOSE (test code = 2217) 80 MG/DL BUN (test code = 2208) 18 MG/DL CREATININE (test code = 2214) 1.06 MG/DL eGFR AMER. (test cod e = 49153) 67 ML/MIN/1.73 eGFR NON- AMER. (test code = 75157) 58 ML/MIN/1.73 CALC BUN/CREAT (test code = [...] = 2219) 54 U/L Delfino OrtaCBC W/AUTO [id number] 00:00:00* Test Item Value Reference Range Interpretation [...] ABS NUCLEATED RBCS (test cod e = 31170) 0.00 K/UL COMMENTS (test code = 1016) (NOTE) Delfino Schumacher AustinLIPID [id number] 00:00:00* Test Item Value Reference Range Interpretation Comme nts CHOLESTEROL (test code = 2210) 174 MG/DL TRIGLYCERIDES (test code = 2232) 63 MG/DL HDL CHOLESTEROL (test code = 2220) 87 MG/DL CALC LDL CHOL (test code = 2237) 73 MG/DL RISK RATIO LDL/HDL (test cod e = 2238) 0.84 RATIO Delfino OrtaCOMPREHENSIVE METABOLIC [id number] 00:00:00* Test Item Value Reference Range Interpretation Comme nts GLUCOSE (test code = 2217) 80 MG/DL BUN (test code = 2208) 18 MG/DL CREATININE (test code = 2214) 1.06 MG/DL eGFR AMER. (test cod e = 95620) 67 ML/MIN/1.73 eGFR NON- AMER. (test code = 99832) 58 ML/MIN/1.73 CALC BUN/CREAT (test code = [...] code = 2219) 54 U/L Delfino F [facility] W/AUTO [id number] 00:00:00* Test Item Value Reference Range Interpretation [...] ABS NUCLEATED RBCS (test cod e = 81463) 0.00 K/UL COMMENTS (test code = 1016) (NOTE) Delfino OrtaLIPID [id number] 00:00:00* Test Item Value Reference Range Interpretation Comme nts CHOLESTEROL (test code = 2210) 174 MG/DL TRIGLYCERIDES (test code = 2232) 63 MG/DL HDL CHOLESTEROL (test code = 2220) 87 MG/DL CALC LDL CHOL (test code = 2237) 73 MG/DL RISK RATIO LDL/HDL (test cod e = 2238) 0.84 RATIO Delfino OrtaCOMPREHENSIVE METABOLIC [id number] 00:00:00* Test Item Value Reference Range Interpretation Comme nts GLUCOSE (test code = 2217) 80 MG/DL BUN (test code = 2208) 18 MG/DL CREATININE (test code = 2214) 1.06 MG/DL eGFR AMER. (test cod e = 51779) 67 ML/MIN/1.73 eGFR NON- AMER. (test code = 20038) 58 ML/MIN/1.73 CALC BUN/CREAT (test code = [...] = 2219) 54 U/L Delfino OrtaCBC W/AUTO [id number] 00:00:00* Test Item Value Reference Range Interpretation [...] ABS NUCLEATED RBCS (test cod e = 10819) 0.00 K/UL COMMENTS (test code = 1016) (NOTE) Delfino Endy AustinLIPID [id number] 00:00:00* Test Item Value Reference Range Interpretation Comme nts CHOLESTEROL (test code = 2210) 174 MG/DL TRIGLYCERIDES (test code = 2232) 63 MG/DL HDL CHOLESTEROL (test code = 2220) 87 MG/DL CALC LDL CHOL (test code = 2237) 73 MG/DL RISK RATIO LDL/HDL (test cod e = 2238) 0.84 RATIO Delfino OrtaCOMPREHENSIVE METABOLIC [id number] 00:00:00* Test Item Value Reference Range Interpretation Comme nts GLUCOSE (test code = 2217) 80 MG/DL BUN (test code = 2208) 18 MG/DL CREATININE (test code = 2214) 1.06 MG/DL eGFR AMER. (test cod e = 02081) 67 ML/MIN/1.73 eGFR NON- AMER. (test code = 95768) 58 ML/MIN/1.73 CALC BUN/CREAT (test code = [...] code = 2219) 54 U/L Delfino Schumacher [facility] W/AUTO [id number] 00:00:00* Test Item Value Reference Range Interpretation [...] ABS NUCLEATED RBCS (test cod e = 54182) 0.00 K/UL COMMENTS (test code = 1016) (NOTE) Delfino OrtaLIPID [id number] 00:00:00* Test Item Value Reference Range Interpretation Comme nts CHOLESTEROL (test code = 2210) 174 MG/DL TRIGLYCERIDES (test code = 2232) 63 MG/DL HDL CHOLESTEROL (test code = 2220) 87 MG/DL CALC LDL CHOL (test code = 2237) 73 MG/DL RISK RATIO LDL/HDL (test cod e = 2238) 0.84 RATIO Delfino OrtaCOMPREHENSIVE METABOLIC [id number] 00:00:00* Test Item Value Reference Range Interpretation Comme nts GLUCOSE (test code = 2217) 80 MG/DL BUN (test code = 2208) 18 MG/DL CREATININE (test code = 2214) 1.06 MG/DL eGFR AMER. (test cod e = 66934) 67 ML/MIN/1.73 eGFR NON- AMER. (test code = 43035) 58 ML/MIN/1.73 CALC BUN/CREAT (test code = [...] = 2219) 54 U/L Delfino OrtaCBC W/AUTO [id number] 00:00:00* Test Item Value Reference Range Interpretation [...] ABS NUCLEATED RBCS (test cod e = 27400) 0.00 K/UL COMMENTS (test code = 1016) (NOTE) Delfino Schumacher AustinLIPID [id number] 00:00:00* Test Item Value Reference Range Interpretation Comme nts CHOLESTEROL (test code = 2210) 174 MG/DL TRIGLYCERIDES (test code = 2232) 63 MG/DL HDL CHOLESTEROL (test code = 2220) 87 MG/DL CALC LDL CHOL (test code = 2237) 73 MG/DL RISK RATIO LDL/HDL (test cod e = 2238) 0.84 RATIO Delfino OrtaCOMPREHENSIVE METABOLIC [id number] 00:00:00* Test Item Value Reference Range Interpretation Comme nts GLUCOSE (test code = 2217) 80 MG/DL BUN (test code = 2208) 18 MG/DL CREATININE (test code = 2214) 1.06 MG/DL eGFR AMER. (test cod e = 77438) 67 ML/MIN/1.73 eGFR NON- AMER. (test code = 21049) 58 ML/MIN/1.73 CALC BUN/CREAT (test code = [...] code = 2219) 54 U/L Delfino Schumacher [facility] W/AUTO [id number] 00:00:00* Test Item Value Reference Range Interpretation [...] ABS NUCLEATED RBCS (test cod e = 08041) 0.00 K/UL COMMENTS (test code = 1016) (NOTE) Delfino OrtaLIPID [id number] 00:00:00* Test Item Value Reference Range Interpretation Comme nts CHOLESTEROL (test code = 2210) 174 MG/DL TRIGLYCERIDES (test code = 2232) 63 MG/DL HDL CHOLESTEROL (test code = 2220) 87 MG/DL CALC LDL CHOL (test code = 2237) 73 MG/DL RISK RATIO LDL/HDL (test cod e = 2238) 0.84 RATIO Delfino OrtaCOMPREHENSIVE METABOLIC [id number] 00:00:00* Test Item Value Reference Range Interpretation Comme nts GLUCOSE (test code = 2217) 80 MG/DL BUN (test code = 2208) 18 MG/DL CREATININE (test code = 2214) 1.06 MG/DL eGFR AMER. (test cod e = 13162) 67 ML/MIN/1.73 eGFR NON- AMER. (test code = 41112) 58 ML/MIN/1.73 CALC BUN/CREAT (test code = [...] 2219) 54 U/L Delfino Schumacher YouCBC W/AUTO [id number] 00:00:00* Test Item Value Reference Range Interpretation [...] ABS NUCLEATED RBCS (test cod e = 65527) 0.00 K/UL COMMENTS (test code = 1016) (NOTE) Delfino Schumacher AustinLIPID [id number] 00:00:00* Test Item Value Reference Range Interpretation Comme nts CHOLESTEROL (test code = 2210) 174 MG/DL TRIGLYCERIDES (test code = 2232) 63 MG/DL HDL CHOLESTEROL (test code = 2220) 87 MG/DL CALC LDL CHOL (test code = 2237) 73 MG/DL RISK RATIO LDL/HDL (test cod e = 2238) 0.84 RATIO Delfino OrtaCOMPREHENSIVE METABOLIC [id number] 00:00:00* Test Item Value Reference Range Interpretation Comme nts GLUCOSE (test code = 2217) 80 MG/DL BUN (test code = 2208) 18 MG/DL CREATININE (test code = 2214) 1.06 MG/DL eGFR AMER. (test cod e = 77767) 67 ML/MIN/1.73 eGFR NON- AMER. (test code = 81023) 58 ML/MIN/1.73 CALC BUN/CREAT (test code = [...] code = 2219) 54 U/L Delfino Schumacher [facility] W/AUTO [id number] 00:00:00* Test Item Value Reference Range Interpretation [...] ABS NUCLEATED RBCS (test cod e = 14805) 0.00 K/UL COMMENTS (test code = 1016) (NOTE) Delfino Schumacher AustinLIPID [id number] 00:00:00* Test Item Value Reference Range Interpretation Comme nts CHOLESTEROL (test code = 2210) 174 MG/DL TRIGLYCERIDES (test code = 2232) 63 MG/DL HDL CHOLESTEROL (test code = 2220) 87 MG/DL CALC LDL CHOL (test code = 2237) 73 MG/DL RISK RATIO LDL/HDL (test cod e = 2238) 0.84 RATIO Delfino OrtaCOMPREHENSIVE METABOLIC [id number] 00:00:00* Test Item Value Reference Range Interpretation Comme nts GLUCOSE (test code = 2217) 80 MG/DL BUN (test code = 2208) 18 MG/DL CREATININE (test code = 2214) 1.06 MG/DL eGFR AMER. (test cod e = 91529) 67 ML/MIN/1.73 eGFR NON- AMER. (test code = 05475) 58 ML/MIN/1.73 CALC BUN/CREAT (test code = [...] = 2219) 54 U/L Delfino OrtaCBC W/AUTO [id number] 00:00:00* Test Item Value Reference Range Interpretation [...] ABS NUCLEATED RBCS (test cod e = 00376) 0.00 K/UL COMMENTS (test code = 1016) (NOTE) Delfino OrtaLIPID [id number] 00:00:00* Test Item Value Reference Range Interpretation Comme nts CHOLESTEROL (test code = 2210) 174 MG/DL TRIGLYCERIDES (test code = 2232) 63 MG/DL HDL CHOLESTEROL (test code = 2220) 87 MG/DL CALC LDL CHOL (test code = 2237) 73 MG/DL RISK RATIO LDL/HDL (test cod e = 2238) 0.84 RATIO Delfino OrtaCOMPREHENSIVE METABOLIC [id number] 00:00:00* Test Item Value Reference Range Interpretation Comme nts GLUCOSE (test code = 2217) 80 MG/DL BUN (test code = 2208) 18 MG/DL CREATININE (test code = 2214) 1.06 MG/DL eGFR AMER. (test cod e = 00730) 67 ML/MIN/1.73 eGFR NON- AMER. (test code = 91687) 58 ML/MIN/1.73 CALC BUN/CREAT (test code = [...] (test code = 2219) 52 U/L Delfino [facility]/AUT[facility] [id number] 00:00:00* Test Item Value Reference Range Interpretation [...] ABS NUCLEATED RBCS (test cod e = 76283) 0.00 K/UL COMMENTS (test code = 1016) (NOTE) Delfino Schumacher AustinLIPID [id number] 00:00:00* Test Item Value Reference Range Interpretation Comme nts CHOLESTEROL (test code = 2210) 174 MG/DL TRIGLYCERIDES (test code = 2232) 63 MG/DL HDL CHOLESTEROL (test code = 2220) 87 MG/DL CALC LDL CHOL (test code = 2237) 73 MG/DL RISK RATIO LDL/HDL (test cod e = 2238) 0.84 RATIO Delfino OrtaCOMPREHENSIVE METABOLIC [id number] 00:00:00* Test Item Value Reference Range Interpretation Comme nts GLUCOSE (test code = 2217) 80 MG/DL BUN (test code = 2208) 18 MG/DL CREATININE (test code = 2214) 1.06 MG/DL eGFR AMER. (test cod e = 24986) 67 ML/MIN/1.73 eGFR NON- AMER. (test code = 25059) 58 ML/MIN/1.73 CALC BUN/CREAT (test code = [...] = 2219) 54 U/L Delfino OrtaCBC W/AUTO [id number] 00:00:00* Test Item Value Reference Range Interpretation [...] ABS NUCLEATED RBCS (test cod e = 98663) 0.00 K/UL COMMENTS (test code = 1016) (NOTE) Delfino OrtaLIPID [id number] 00:00:00* Test Item Value Reference Range Interpretation Comme nts CHOLESTEROL (test code = 2210) 174 MG/DL TRIGLYCERIDES (test code = 2232) 63 MG/DL HDL CHOLESTEROL (test code = 2220) 87 MG/DL CALC LDL CHOL (test code = 2237) 73 MG/DL RISK RATIO LDL/HDL (test cod e = 2238) 0.84 RATIO Delfino OrtaCOMPREHENSIVE METABOLIC [id number] 00:00:00* Test Item Value Reference Range Interpretation Comme nts GLUCOSE (test code = 2217) 80 MG/DL BUN (test code = 2208) 18 MG/DL CREATININE (test code = 2214) 1.06 MG/DL eGFR AMER. (test cod e = 81461) 67 ML/MIN/1.73 eGFR NON- AMER. (test code = 88669) 58 ML/MIN/1.73 CALC BUN/CREAT (test code = [...] = 2219) 54 U/L Delfino OrtaCBC W/AUTO [id number] 00:00:00* Test Item Value Reference Range Interpretation [...] ABS NUCLEATED RBCS (test cod e = 66823) 0.00 K/UL COMMENTS (test code = 1016) (NOTE) Delfino Schumacher AustinLIPID [id number] 00:00:00* Test Item Value Reference Range Interpretation Comme nts CHOLESTEROL (test code = 2210) 174 MG/DL TRIGLYCERIDES (test code = 2232) 63 MG/DL HDL CHOLESTEROL (test code = 2220) 87 MG/DL CALC LDL CHOL (test code = 2237) 73 MG/DL RISK RATIO LDL/HDL (test cod e = 2238) 0.84 RATIO Delfino OrtaCOMPREHENSIVE METABOLIC [id number] 00:00:00* Test Item Value Reference Range Interpretation Comme nts GLUCOSE (test code = 2217) 80 MG/DL BUN (test code = 2208) 18 MG/DL CREATININE (test code = 2214) 1.06 MG/DL eGFR AMER. (test cod e = 37992) 67 ML/MIN/1.73 eGFR NON- AMER. (test code = 28067) 58 ML/MIN/1.73 CALC BUN/CREAT (test code = [...] = 2219) 54 U/L Delfino OrtaCBC W/AUTO [id number] 00:00:00* Test Item Value Reference Range Interpretation [...] ABS NUCLEATED RBCS (test cod e = 57262) 0.00 K/UL COMMENTS (test code = 1016) (NOTE) Delfino OrtaLIPID [id number] 00:00:00* Test Item Value Reference Range Interpretation Comme nts CHOLESTEROL (test code = 2210) 174 MG/DL TRIGLYCERIDES (test code = 2232) 63 MG/DL HDL CHOLESTEROL (test code = 2220) 87 MG/DL CALC LDL CHOL (test code = 2237) 73 MG/DL RISK RATIO LDL/HDL (test cod e = 2238) 0.84 RATIO Delfino [facility]/AUTO [id number] 00:00:00* Test Item Value Reference Range Interpretation [...] ABS NUCLEATED RBCS (test cod e = 42166) 0.00 K/UL COMMENTS (test code = 1016) (NOTE) LIPID [id number] 00:00:00* Test Item Value Reference Range Interpretation [...] nts SARS-CoV-2 INTERPRETATION (t est code = 72966) NEGATIVE SOURCE (test code = 79689) NOT SPECIFIED SARS-CoV-2 (COVID-19) by RT-PCR (HIGH RISK)2020-01-21 00:00:00* Test Item Value Reference Range Interpretation Comme nts SARS-CoV-2 INTERPRETATION (t est code = 47315) NEGATIVE SOURCE (test code = 33219) NOT SPECIFIED SARS-CoV-2 (COVID-19) by RT-PCR (HIGH RISK)2020-01-21 00:00:00* Test Item Value Reference Range Interpretation Comme nts SARS-CoV-2 INTERPRETATION (t est code = 00202) NEGATIVE SOURCE (test code = 87607) NOT SPECIFIED SARS-CoV-2 (COVID-19) by RT-PCR (HIGH RISK)2020-01-21 00:00:00* Test Item Value Reference Range Interpretation Comme nts SARS-CoV-2 INTERPRETATION (t est code = 57773) NEGATIVE SOURCE (test code = 36035) NOT SPECIFIED Delfino F LquedkZLLC-ZfF-3 (COVID-19) by RT-PCR (HIGH RISK)2020-01-21 00:00:00* Test Item Value Reference Range Interpretation Comme nts SARS-CoV-2 INTERPRETATION (t est code = 66575) NEGATIVE SOURCE (test code = 31515) NOT SPECIFIED Delfino F FpyqofCWLU-RvF-1 (COVID-19) by RT-PCR (HIGH RISK)2020-01-21 00:00:00* Test Item Value Reference Range Interpretation Comme nts SARS-CoV-2 INTERPRETATION (t est code = 41203) NEGATIVE SOURCE (test code = 75776) NOT SPECIFIED Delfino F GsbvdzWUWK-XoY-4 (COVID-19) by RT-PCR (HIGH RISK)2020-01-21 00:00:00* Test Item Value Reference Range Interpretation Comme nts SARS-CoV-2 INTERPRETATION (t est code = 77260) NEGATIVE SOURCE (test code = 18322) NOT SPECIFIED Delfino F MkfjvdVCSB-YgB-6 (COVID-19) by RT-PCR (HIGH RISK)2020-01-21 00:00:00* Test Item Value Reference Range Interpretation Comme nts SARS-CoV-2 INTERPRETATION (t est code = 93164) NEGATIVE SOURCE (test code = 59678) NOT SPECIFIED Delfino Schumacher HwumbkXOZF-FoH-9 (COVID-19) by RT-PCR (HIGH RISK)2020-01-21 00:00:00* Test Item Value Reference Range Interpretation Comme nts SARS-CoV-2 INTERPRETATION (t est code = 59962) NEGATIVE SOURCE (test code = 74912) NOT SPECIFIED Delfino F RgqkwbIZHJ-BfH-0 (COVID-19) by RT-PCR (HIGH RISK)2020-01-21 00:00:00* Test Item Value Reference Range Interpretation Comme nts SARS-CoV-2 INTERPRETATION (t est code = 03882) NEGATIVE SOURCE (test code = 29390) NOT SPECIFIED Delfino F AzmbszFSZB-DjO-1 (COVID-19) by RT-PCR (HIGH RISK)2020-01-21 00:00:00* Test Item Value Reference Range Interpretation Comme nts SARS-CoV-2 INTERPRETATION (t est code = 48146) NEGATIVE SOURCE (test code = 98211) NOT SPECIFIED Delfino F DyzbxqCAFV-RyU-3 (COVID-19) by RT-PCR (HIGH RISK)2020-01-21 00:00:00* Test Item Value Reference Range Interpretation Comme nts SARS-CoV-2 INTERPRETATION (t est code = 47679) NEGATIVE SOURCE (test code = 95978) NOT SPECIFIED Delfino F OoyuabGQJM-MhB-2 (COVID-19) by RT-PCR (HIGH RISK)2020-01-21 00:00:00* Test Item Value Reference Range Interpretation Comme nts SARS-CoV-2 INTERPRETATION (t est code = 69790) NEGATIVE SOURCE (test code = 82658) NOT SPECIFIED Delfino F ThieotEEFU-LaZ-1 (COVID-19) by RT-PCR (HIGH RISK)2020-01-21 00:00:00* Test Item Value Reference Range Interpretation Comme nts SARS-CoV-2 INTERPRETATION (t est code = 06522) NEGATIVE SOURCE (test code = 62925) NOT SPECIFIED Delfino F YhssflOJOO-ThY-6 (COVID-19) by RT-PCR (HIGH RISK)2020-01-21 00:00:00* Test Item Value Reference Range Interpretation Comme nts SARS-CoV-2 INTERPRETATION (t est code = 52148) NEGATIVE SOURCE (test code = 46939) NOT SPECIFIED Delfino Schumacher RvvjluSHKB-DnB-8 (COVID-19) by RT-PCR (HIGH RISK)2020-01-21 00:00:00* Test Item Value Reference Range Interpretation Comme nts SARS-CoV-2 INTERPRETATION (t est code = 17421) NEGATIVE SOURCE (test code = 68238) NOT SPECIFIED Delfino Schumacher DplaknBHDN-RcG-2 (COVID-19) by RT-PCR (HIGH RISK)2020-01-21 00:00:00* Test Item Value Reference Range Interpretation Comme nts SARS-CoV-2 INTERPRETATION (t est code = 49686) NEGATIVE SOURCE (test code = 03011) NOT SPECIFIED Delfino Schumacher LturmpOYMU-BpA-3 (COVID-19) by RT-PCR (HIGH RISK)2020-01-21 00:00:00* Test Item Value Reference Range Interpretation Comme nts SARS-CoV-2 INTERPRETATION (t est code = 28992) NEGATIVE SOURCE (test code = 43605) NOT SPECIFIED Delfino Schumacher BsduinEJJT-AqN-7 (COVID-19) by RT-PCR (HIGH RISK)2020-01-21 00:00:00* Test Item Value Reference Range Interpretation Comme nts SARS-CoV-2 INTERPRETATION (t est code = 91658) NEGATIVE SOURCE (test code = 27725) NOT SPECIFIED Delfino Schumacher UwgwvpCWPP-KgC-6 (COVID-19) by RT-PCR (HIGH RISK)2020-01-21 00:00:00* Test Item Value Reference Range Interpretation Comme nts SARS-CoV-2 INTERPRETATION (t est code = 56360) NEGATIVE SOURCE (test code = 41129) NOT SPECIFIED Delfino Schumacher VrilvwFPZC-MjN-2 (COVID-19) by RT-PCR (HIGH RISK)2020-01-21 00:00:00* Test Item Value Reference Range Interpretation Comme nts SARS-CoV-2 INTERPRETATION (t est code = 96405) NEGATIVE SOURCE (test code = 38379) NOT SPECIFIED Delfino F UwqaowXEQK-MuR-8 (COVID-19) by RT-PCR (HIGH RISK)2020-01-21 00:00:00* Test Item Value Reference Range Interpretation Comme nts SARS-CoV-2 INTERPRETATION (t est code = 13903) NEGATIVE SOURCE (test code = 55948) NOT SPECIFIED Delfino Schumacher WflckoMNWQ-JgV-5 (COVID-19) by RT-PCR (HIGH RISK)2020-01-21 00:00:00* Test Item Value Reference Range Interpretation Comme nts SARS-CoV-2 INTERPRETATION (t est code = 55833) NEGATIVE SOURCE (test code = 52593) NOT SPECIFIED Delfino F UxihupZIZQ-NrZ-4 (COVID-19) by RT-PCR (HIGH RISK)2020-01-21 00:00:00* Test Item Value Reference Range Interpretation Comme nts SARS-CoV-2 INTERPRETATION (t est code = 77004) NEGATIVE SOURCE (test code = 65073) NOT SPECIFIED Delfino F YnjlrlZDNP-MbX-0 (COVID-19) by RT-PCR (HIGH RISK)2020-01-21 00:00:00* Test Item Value Reference Range Interpretation Comme nts SARS-CoV-2 INTERPRETATION (t est code = 59855) NEGATIVE SOURCE (test code = 55324) NOT SPECIFIED Delfino F XopupyRUVM-LkJ-8 (COVID-19) by RT-PCR (HIGH RISK)2020-01-21 00:00:00* Test Item Value Reference Range Interpretation Comme nts SARS-CoV-2 INTERPRETATION (t est code = 18409) NEGATIVE SOURCE (test code = 34622) NOT SPECIFIED Delfino F LedyiyQHEL-PpQ-0 (COVID-19) by RT-PCR (HIGH RISK)2020-01-21 00:00:00* Test Item Value Reference Range Interpretation Comme nts SARS-CoV-2 INTERPRETATION (t est code = 47098) NEGATIVE SOURCE (test code = 26765) NOT SPECIFIED Delfino F MeevodLQMI-VqY-1 (COVID-19) by RT-PCR (HIGH RISK)2020-01-21 00:00:00* Test Item Value Reference Range Interpretation Comme nts SARS-CoV-2 INTERPRETATION (t est code = 29845) NEGATIVE SOURCE (test code = 86908) NOT SPECIFIED Delfino F IpwzdmMBJZ-JpX-2 (COVID-19) by RT-PCR (HIGH RISK)2020-01-21 00:00:00* Test Item Value Reference Range Interpretation Comme nts SARS-CoV-2 INTERPRETATION (t est code = 40362) NEGATIVE SOURCE (test code = 39615) NOT SPECIFIED Delfino F ZajllmKPPW-ZyJ-7 (COVID-19) by RT-PCR (HIGH RISK)2020-01-21 00:00:00* Test Item Value Reference Range Interpretation Comme nts SARS-CoV-2 INTERPRETATION (t est code = 65674) NEGATIVE SOURCE (test code = 87617) NOT SPECIFIED Delfino Schumacher RdcejyLURP-JeG-8 (COVID-19) by RT-PCR (HIGH RISK)2020-01-21 00:00:00* Test Item Value Reference Range Interpretation Comme nts SARS-CoV-2 INTERPRETATION (t est code = 90603) NEGATIVE SOURCE (test code = 72992) NOT SPECIFIED Delfino F OrjwdsESIC-AxJ-5 (COVID-19) by RT-PCR (HIGH RISK)2020-01-21 00:00:00* Test Item Value Reference Range Interpretation Comme nts SARS-CoV-2 INTERPRETATION (t est code = 17692) NEGATIVE SOURCE (test code = 98440) NOT SPECIFIED Delfino F XhkicaAIFG-AyE-6 (COVID-19) by RT-PCR (HIGH RISK)2020-01-21 00:00:00* Test Item Value Reference Range Interpretation Comme nts SARS-CoV-2 INTERPRETATION (t est code = 92228) NEGATIVE SOURCE (test code = 92626) NOT SPECIFIED Delfino F ClmnjaPUES-BpE-9 (COVID-19) by RT-PCR (HIGH RISK)2020-01-21 00:00:00* Test Item Value Reference Range Interpretation Comme nts SARS-CoV-2 INTERPRETATION (t est code = 45879) NEGATIVE SOURCE (test code = 86192) NOT SPECIFIED Delfino F OuyuqpENZT-PhG-5 (COVID-19) by RT-PCR (HIGH RISK)2020-01-21 00:00:00* Test Item Value Reference Range Interpretation Comme nts SARS-CoV-2 INTERPRETATION (t est code = 64085) NEGATIVE SOURCE (test code = 68179) NOT SPECIFIED Delfino F MmtnhlUFGV-IxI-7 (COVID-19) by RT-PCR (HIGH RISK)2020-01-21 00:00:00* Test Item Value Reference Range Interpretation Comme nts SARS-CoV-2 INTERPRETATION (t est code = 59032) NEGATIVE SOURCE (test code = 08079) NOT SPECIFIED Delfino F LkeprdPHWH-AlJ-2 (COVID-19) by RT-PCR (HIGH RISK)2020-01-21 00:00:00* Test Item Value Reference Range Interpretation Comme nts SARS-CoV-2 INTERPRETATION (t est code = 81954) NEGATIVE SOURCE (test code = 39944) NOT SPECIFIED Delfino AllenRS-CoV-2 (COVID-19) by RT-PCR (HIGH RISK)2020-01-21 00:00:00* Test Item Value Reference Range Interpretation Comme nts SARS-CoV-2 INTERPRETATION (t est code = 81429) NEGATIVE SOURCE (test code = 65282) NOT SPECIFIED CBC W/AUTO [id number] 00:00:00* Test Item Value Reference Range Interpretation [...] code = 1015) 186 K/UL COMPREHENSIVE METABOLIC [id number] 00:00:00* Test Item Value Reference Range Interpretation Comme nts GLUCOSE (test code = 2217) 86 MG/DL BUN (test code = 2208) 16 MG/DL CREATININE (test code = 2214) 0.90 MG/DL eGFR AMER. (test cod e = 74178) 83 ML/MIN/1.73 eGFR NON- AMER. (test code = 79573) 71 ML/MIN/1.73 CALC BUN/CREAT (test code = [...] code = 2219) 29 U/L CBC W/AUTO [id number] 00:00:00* Test Item Value Reference Range Interpretation [...] code = 1015) 186 K/UL COMPREHENSIVE METABOLIC [id number] 00:00:00* Test Item Value Reference Range Interpretation Comme nts GLUCOSE (test code = 2217) 86 MG/DL BUN (test code = 2208) 16 MG/DL CREATININE (test code = 2214) 0.90 MG/DL eGFR AMER. (test cod e = 79610) 83 ML/MIN/1.73 eGFR NON- AMER. (test code = 20169) 71 ML/MIN/1.73 CALC BUN/CREAT (test code = [...] code = 2219) 29 U/L CBC W/AUTO [id number] 00:00:00* Test Item Value Reference Range Interpretation [...] code = 1015) 186 K/UL COMPREHENSIVE METABOLIC [id number] 00:00:00* Test Item Value Reference Range Interpretation Comme nts GLUCOSE (test code = 2217) 86 MG/DL BUN (test code = 2208) 16 MG/DL CREATININE (test code = 2214) 0.90 MG/DL eGFR AMER. (test cod e = 55277) 83 ML/MIN/1.73 eGFR NON- AMER. (test code = 78278) 71 ML/MIN/1.73 CALC BUN/CREAT (test code = [...] code = 2219) 29 U/L CBC W/AUTO [id number] 00:00:00* Test Item Value Reference Range Interpretation [...] code = 1015) 186 K/UL CBC W/AUTO [id number] 00:00:00* Test Item Value Reference Range Interpretation [...] = 1015) 186 K/UL Delfino OrtaCOMPREHENSIVE METABOLIC [id number] 00:00:00* Test Item Value Reference Range Interpretation Comme nts GLUCOSE (test code = 2217) 86 MG/DL BUN (test code = 2208) 16 MG/DL CREATININE (test code = 2214) 0.90 MG/DL eGFR AMER. (test cod e = 69324) 83 ML/MIN/1.73 eGFR NON- AMER. (test code = 69161) 71 ML/MIN/1.73 CALC BUN/CREAT (test code = [...] = 2219) 29 U/L Delfino OrtaCBC W/AUTO [id number] 00:00:00* Test Item Value Reference Range Interpretation [...] = 1015) 186 K/UL Delfino OrtaCOMPREHENSIVE METABOLIC [id number] 00:00:00* Test Item Value Reference Range Interpretation Comme nts GLUCOSE (test code = 2217) 86 MG/DL BUN (test code = 2208) 16 MG/DL CREATININE (test code = 2214) 0.90 MG/DL eGFR AMER. (test cod e = 46774) 83 ML/MIN/1.73 eGFR NON- AMER. (test code = 24358) 71 ML/MIN/1.73 CALC BUN/CREAT (test code = [...] = 2219) 29 U/L Delfino OrtaCBC W/AUTO [id number] 00:00:00* Test Item Value Reference Range Interpretation [...] = 1015) 186 K/UL Delfino OrtaCBC W/AUTO [id number] 00:00:00* Test Item Value Reference Range Interpretation [...] = 1015) 186 K/UL Delfino OrtaCOMPREHENSIVE METABOLIC [id number] 00:00:00* Test Item Value Reference Range Interpretation Comme nts GLUCOSE (test code = 2217) 86 MG/DL BUN (test code = 2208) 16 MG/DL CREATININE (test code = 2214) 0.90 MG/DL eGFR AMER. (test cod e = 28682) 83 ML/MIN/1.73 eGFR NON- AMER. (test code = 60031) 71 ML/MIN/1.73 CALC BUN/CREAT (test code = [...] = 2219) 29 U/L Delfino OrtaCBC W/AUTO [id number] 00:00:00* Test Item Value Reference Range Interpretation [...] = 1015) 186 K/UL Delfino OrtaCOMPREHENSIVE METABOLIC [id number] 00:00:00* Test Item Value Reference Range Interpretation Comme nts GLUCOSE (test code = 2217) 86 MG/DL BUN (test code = 2208) 16 MG/DL CREATININE (test code = 2214) 0.90 MG/DL eGFR AMER. (test cod e = 77373) 83 ML/MIN/1.73 eGFR NON- AMER. (test code = 28240) 71 ML/MIN/1.73 CALC BUN/CREAT (test code = [...] = 2219) 29 U/L Delfino OrtaCBC W/AUTO [id number] 00:00:00* Test Item Value Reference Range Interpretation [...] = 1015) 186 K/UL Delfino OrtaCOMPREHENSIVE METABOLIC [id number] 00:00:00* Test Item Value Reference Range Interpretation Comme nts GLUCOSE (test code = 2217) 86 MG/DL BUN (test code = 2208) 16 MG/DL CREATININE (test code = 2214) 0.90 MG/DL eGFR AMER. (test cod e = 10274) 83 ML/MIN/1.73 eGFR NON- AMER. (test code = 69106) 71 ML/MIN/1.73 CALC BUN/CREAT (test code = [...] = 2219) 29 U/L Delfino OrtaCBC W/AUTO [id number] 00:00:00* Test Item Value Reference Range Interpretation [...] = 1015) 186 K/UL Delfino OrtaCOMPREHENSIVE METABOLIC [id number] 00:00:00* Test Item Value Reference Range Interpretation Comme nts GLUCOSE (test code = 2217) 86 MG/DL BUN (test code = 2208) 16 MG/DL CREATININE (test code = 2214) 0.90 MG/DL eGFR AMER. (test cod e = 31763) 83 ML/MIN/1.73 eGFR NON- AMER. (test code = 66780) 71 ML/MIN/1.73 CALC BUN/CREAT (test code = [...] = 2219) 29 U/L Delfino OrtaCBC W/AUTO [id number] 00:00:00* Test Item Value Reference Range Interpretation [...] = 1015) 186 K/UL Delfino OrtaCOMPREHENSIVE METABOLIC [id number] 00:00:00* Test Item Value Reference Range Interpretation Comme nts GLUCOSE (test code = 2217) 86 MG/DL BUN (test code = 2208) 16 MG/DL CREATININE (test code = 2214) 0.90 MG/DL eGFR AMER. (test cod e = 77358) 83 ML/MIN/1.73 eGFR NON- AMER. (test code = 07551) 71 ML/MIN/1.73 CALC BUN/CREAT (test code = [...] 2219) 29 U/L Delfino Endy YouCBC W/AUTO [id number] 00:00:00* Test Item Value Reference Range Interpretation [...] 1015) 186 K/UL Delfino F YouCOMPREHENSIVE METABOLIC [id number] 00:00:00* Test Item Value Reference Range Interpretation Comme nts GLUCOSE (test code = 2217) 86 MG/DL BUN (test code = 2208) 16 MG/DL CREATININE (test code = 2214) 0.90 MG/DL eGFR AMER. (test cod e = 46758) 83 ML/MIN/1.73 eGFR NON- AMER. (test code = 92356) 71 ML/MIN/1.73 CALC BUN/CREAT (test code = [...] = 2219) 29 U/L Delfino OrtaCBC W/AUTO [id number] 00:00:00* Test Item Value Reference Range Interpretation [...] = 1015) 186 K/UL Delfino OrtaCOMPREHENSIVE METABOLIC [id number] 00:00:00* Test Item Value Reference Range Interpretation Comme nts GLUCOSE (test code = 2217) 86 MG/DL BUN (test code = 2208) 16 MG/DL CREATININE (test code = 2214) 0.90 MG/DL eGFR AMER. (test cod e = 43217) 83 ML/MIN/1.73 eGFR NON- AMER. (test code = 14121) 71 ML/MIN/1.73 CALC BUN/CREAT (test code = [...] = 2219) 29 U/L Delfino OrtaCBC W/AUTO [id number] 00:00:00* Test Item Value Reference Range Interpretation [...] = 1015) 186 K/UL Delfino OrtaCOMPREHENSIVE METABOLIC [id number] 00:00:00* Test Item Value Reference Range Interpretation Comme nts GLUCOSE (test code = 2217) 86 MG/DL BUN (test code = 2208) 16 MG/DL CREATININE (test code = 2214) 0.90 MG/DL eGFR AMER. (test cod e = 55525) 83 ML/MIN/1.73 eGFR NON- AMER. (test code = 44563) 71 ML/MIN/1.73 CALC BUN/CREAT (test code = [...] 2219) 29 U/L Delfino Schumacher YouCBC W/AUTO [id number] 00:00:00* Test Item Value Reference Range Interpretation [...] 1015) 186 K/UL Delfino Schumacher YouCOMPREHENSIVE METABOLIC [id number] 00:00:00* Test Item Value Reference Range Interpretation Comme nts GLUCOSE (test code = 2217) 86 MG/DL BUN (test code = 2208) 16 MG/DL CREATININE (test code = 2214) 0.90 MG/DL eGFR AMER. (test cod e = 21849) 83 ML/MIN/1.73 eGFR NON- AMER. (test code = 70605) 71 ML/MIN/1.73 CALC BUN/CREAT (test code = [...] 2219) 29 U/L Delfino Endy YouCBC W/AUTO [id number] 00:00:00* Test Item Value Reference Range Interpretation [...] 1015) 186 K/UL Delfino F YouCOMPREHENSIVE METABOLIC [id number] 00:00:00* Test Item Value Reference Range Interpretation Comme nts GLUCOSE (test code = 2217) 86 MG/DL BUN (test code = 2208) 16 MG/DL CREATININE (test code = 2214) 0.90 MG/DL eGFR AMER. (test cod e = 18317) 83 ML/MIN/1.73 eGFR NON- AMER. (test code = 35117) 71 ML/MIN/1.73 CALC BUN/CREAT (test code = [...] = 2219) 29 U/L Delfino OrtaCBC W/AUTO [id number] 00:00:00* Test Item Value Reference Range Interpretation [...] = 1015) 186 K/UL Delfino OrtaCOMPREHENSIVE METABOLIC [id number] 00:00:00* Test Item Value Reference Range Interpretation Comme nts GLUCOSE (test code = 2217) 86 MG/DL BUN (test code = 2208) 16 MG/DL CREATININE (test code = 2214) 0.90 MG/DL eGFR AMER. (test cod e = 91644) 83 ML/MIN/1.73 eGFR NON- AMER. (test code = 78928) 71 ML/MIN/1.73 CALC BUN/CREAT (test code = [...] = 2219) 29 U/L Delfino OrtaCBC W/AUTO [id number] 00:00:00* Test Item Value Reference Range Interpretation [...] 1015) 186 K/UL Delfino Endy YouCOMPREHENSIVE METABOLIC [id number] 00:00:00* Test Item Value Reference Range Interpretation Comme nts GLUCOSE (test code = 2217) 86 MG/DL BUN (test code = 2208) 16 MG/DL CREATININE (test code = 2214) 0.90 MG/DL eGFR AMER. (test cod e = 57805) 83 ML/MIN/1.73 eGFR NON- AMER. (test code = 31953) 71 ML/MIN/1.73 CALC BUN/CREAT (test code = [...] = 2219) 29 U/L Delfino OrtaCBC W/AUTO [id number] 00:00:00* Test Item Value Reference Range Interpretation [...] = 1015) 186 K/UL Delfino OrtaCOMPREHENSIVE METABOLIC [id number] 00:00:00* Test Item Value Reference Range Interpretation Comme nts GLUCOSE (test code = 2217) 86 MG/DL BUN (test code = 2208) 16 MG/DL CREATININE (test code = 2214) 0.90 MG/DL eGFR AMER. (test cod e = 10666) 83 ML/MIN/1.73 eGFR NON- AMER. (test code = 35333) 71 ML/MIN/1.73 CALC BUN/CREAT (test code = [...] = 2219) 29 U/L Delfino OrtaCBC W/AUTO [id number] 00:00:00* Test Item Value Reference Range Interpretation [...] = 1015) 186 K/UL Delfino OrtaCOMPREHENSIVE METABOLIC [id number] 00:00:00* Test Item Value Reference Range Interpretation Comme nts GLUCOSE (test code = 2217) 86 MG/DL BUN (test code = 2208) 16 MG/DL CREATININE (test code = 2214) 0.90 MG/DL eGFR AMER. (test cod e = 09335) 83 ML/MIN/1.73 eGFR NON- AMER. (test code = 50438) 71 ML/MIN/1.73 CALC BUN/CREAT (test code = [...] = 2219) 29 U/L Delfino OrtaCBC W/AUTO [id number] 00:00:00* Test Item Value Reference Range Interpretation [...] = 1015) 186 K/UL Delfino OrtaCOMPREHENSIVE METABOLIC [id number] 00:00:00* Test Item Value Reference Range Interpretation Comme nts GLUCOSE (test code = 2217) 86 MG/DL BUN (test code = 2208) 16 MG/DL CREATININE (test code = 2214) 0.90 MG/DL eGFR AMER. (test cod e = 30604) 83 ML/MIN/1.73 eGFR NON- AMER. (test code = 36047) 71 ML/MIN/1.73 CALC BUN/CREAT (test code = [...] = 2219) 29 U/L Delfino OrtaCBC W/AUTO [id number] 00:00:00* Test Item Value Reference Range Interpretation [...] = 1015) 186 K/UL Delfino OrtaCOMPREHENSIVE METABOLIC [id number] 00:00:00* Test Item Value Reference Range Interpretation Comme nts GLUCOSE (test code = 2217) 86 MG/DL BUN (test code = 2208) 16 MG/DL CREATININE (test code = 2214) 0.90 MG/DL eGFR AMER. (test cod e = 12346) 83 ML/MIN/1.73 eGFR NON- AMER. (test code = 98566) 71 ML/MIN/1.73 CALC BUN/CREAT (test code = [...] = 2219) 29 U/L Delfino OrtaCBC W/AUTO [id number] 00:00:00* Test Item Value Reference Range Interpretation [...] = 1015) 186 K/UL Delfino OrtaCOMPREHENSIVE METABOLIC [id number] 00:00:00* Test Item Value Reference Range Interpretation Comme nts GLUCOSE (test code = 2217) 86 MG/DL BUN (test code = 2208) 16 MG/DL CREATININE (test code = 2214) 0.90 MG/DL eGFR AMER. (test cod e = 66084) 83 ML/MIN/1.73 eGFR NON- AMER. (test code = 76573) 71 ML/MIN/1.73 CALC BUN/CREAT (test code = [...] = 2219) 29 U/L Delfino OrtaCBC W/AUTO [id number] 00:00:00* Test Item Value Reference Range Interpretation [...] = 1015) 186 K/UL Delfino OrtaCOMPREHENSIVE METABOLIC [id number] 00:00:00* Test Item Value Reference Range Interpretation Comme nts GLUCOSE (test code = 2217) 86 MG/DL BUN (test code = 2208) 16 MG/DL CREATININE (test code = 2214) 0.90 MG/DL eGFR AMER. (test cod e = 29689) 83 ML/MIN/1.73 eGFR NON- AMER. (test code = 00504) 71 ML/MIN/1.73 CALC BUN/CREAT (test code = [...] = 2219) 29 U/L Delfino OrtaCBC W/AUTO [id number] 00:00:00* Test Item Value Reference Range Interpretation [...] = 1015) 186 K/UL Delfino OrtaCOMPREHENSIVE METABOLIC [id number] 00:00:00* Test Item Value Reference Range Interpretation Comme nts GLUCOSE (test code = 2217) 86 MG/DL BUN (test code = 2208) 16 MG/DL CREATININE (test code = 2214) 0.90 MG/DL eGFR AMER. (test cod e = 89576) 83 ML/MIN/1.73 eGFR NON- AMER. (test code = 15240) 71 ML/MIN/1.73 CALC BUN/CREAT (test code = [...] = 2219) 29 U/L Delfino OrtaCBC W/AUTO [id number] 00:00:00* Test Item Value Reference Range Interpretation [...] = 1015) 186 K/UL Delfino OrtaCOMPREHENSIVE METABOLIC [id number] 00:00:00* Test Item Value Reference Range Interpretation Comme nts GLUCOSE (test code = 2217) 86 MG/DL BUN (test code = 2208) 16 MG/DL CREATININE (test code = 2214) 0.90 MG/DL eGFR AMER. (test cod e = 46792) 83 ML/MIN/1.73 eGFR NON- AMER. (test code = 79418) 71 ML/MIN/1.73 CALC BUN/CREAT (test code = [...] = 2219) 29 U/L Delfino OrtaCBC W/AUTO [id number] 00:00:00* Test Item Value Reference Range Interpretation [...] = 1015) 186 K/UL Delfino OrtaCOMPREHENSIVE METABOLIC [id number] 00:00:00* Test Item Value Reference Range Interpretation Comme nts GLUCOSE (test code = 2217) 86 MG/DL BUN (test code = 2208) 16 MG/DL CREATININE (test code = 2214) 0.90 MG/DL eGFR AMER. (test cod e = 92070) 83 ML/MIN/1.73 eGFR NON- AMER. (test code = 05480) 71 ML/MIN/1.73 CALC BUN/CREAT (test code = [...] ALT (test code = 2219) 29 U/L Delfion OrtaCBC W/AUTO [id number] 00:00:00* Test Item Value Reference Range Interpretation [...] = 1015) 186 K/UL Delfino OrtaCOMPREHENSIVE METABOLIC [id number] 00:00:00* Test Item Value Reference Range Interpretation Comme nts GLUCOSE (test code = 2217) 86 MG/DL BUN (test code = 2208) 16 MG/DL CREATININE (test code = 2214) 0.90 MG/DL eGFR AMER. (test cod e = 14414) 83 ML/MIN/1.73 eGFR NON- AMER. (test code = 46583) 71 ML/MIN/1.73 CALC BUN/CREAT (test code = [...] = 2219) 29 U/L Delfino OrtaCBC W/AUTO [id number] 00:00:00* Test Item Value Reference Range Interpretation [...] = 1015) 186 K/UL Delfino OrtaCOMPREHENSIVE METABOLIC [id number] 00:00:00* Test Item Value Reference Range Interpretation Comme nts GLUCOSE (test code = 2217) 86 MG/DL BUN (test code = 2208) 16 MG/DL CREATININE (test code = 2214) 0.90 MG/DL eGFR AMER. (test cod e = 26294) 83 ML/MIN/1.73 eGFR NON- AMER. (test code = 65426) 71 ML/MIN/1.73 CALC BUN/CREAT (test code = [...] = 2219) 29 U/L Delfino OrtaCBC W/AUTO [id number] 00:00:00* Test Item Value Reference Range Interpretation [...] 1015) 186 K/UL Delfino Schumacher YouCOMPREHENSIVE METABOLIC [id number] 00:00:00* Test Item Value Reference Range Interpretation Comme nts GLUCOSE (test code = 2217) 86 MG/DL BUN (test code = 2208) 16 MG/DL CREATININE (test code = 2214) 0.90 MG/DL eGFR AMER. (test cod e = 95493) 83 ML/MIN/1.73 eGFR NON- AMER. (test code = 10026) 71 ML/MIN/1.73 CALC BUN/CREAT (test code = [...] 2219) 29 U/L Delfino Schumacher YouCBC W/AUTO [id number] 00:00:00* Test Item Value Reference Range Interpretation [...] = 1015) 186 K/UL Delfino OrtaCOMPREHENSIVE METABOLIC [id number] 00:00:00* Test Item Value Reference Range Interpretation Comme nts GLUCOSE (test code = 2217) 86 MG/DL BUN (test code = 2208) 16 MG/DL CREATININE (test code = 2214) 0.90 MG/DL eGFR AMER. (test cod e = 80070) 83 ML/MIN/1.73 eGFR NON- AMER. (test code = 69199) 71 ML/MIN/1.73 CALC BUN/CREAT (test code = [...] = 2219) 29 U/L Delfino OrtaCBC W/AUTO [id number] 00:00:00* Test Item Value Reference Range Interpretation [...] = 1015) 186 K/UL Delfino OrtaCOMPREHENSIVE METABOLIC [id number] 00:00:00* Test Item Value Reference Range Interpretation Comme nts GLUCOSE (test code = 2217) 86 MG/DL BUN (test code = 2208) 16 MG/DL CREATININE (test code = 2214) 0.90 MG/DL eGFR AMER. (test cod e = 49032) 83 ML/MIN/1.73 eGFR NON- AMER. (test code = 39663) 71 ML/MIN/1.73 CALC BUN/CREAT (test code = [...] = 2219) 29 U/L Delfino OrtaCBC W/AUTO [id number] 00:00:00* Test Item Value Reference Range Interpretation [...] = 1015) 186 K/UL Delfino OrtaCOMPREHENSIVE METABOLIC [id number] 00:00:00* Test Item Value Reference Range Interpretation Comme nts GLUCOSE (test code = 2217) 86 MG/DL BUN (test code = 2208) 16 MG/DL CREATININE (test code = 2214) 0.90 MG/DL eGFR AMER. (test cod e = 81938) 83 ML/MIN/1.73 eGFR NON- AMER. (test code = 57851) 71 ML/MIN/1.73 CALC BUN/CREAT (test code = [...] = 2219) 29 U/L Delfino OrtaCBC W/AUTO [id number] 00:00:00* Test Item Value Reference Range Interpretation [...] 1015) 186 K/UL Delfino Schumacher YouCOMPREHENSIVE METABOLIC [id number] 00:00:00* Test Item Value Reference Range Interpretation Comme nts GLUCOSE (test code = 2217) 86 MG/DL BUN (test code = 2208) 16 MG/DL CREATININE (test code = 2214) 0.90 MG/DL eGFR AMER. (test cod e = 53127) 83 ML/MIN/1.73 eGFR NON- AMER. (test code = 12808) 71 ML/MIN/1.73 CALC BUN/CREAT (test code = [...] 2219) 29 U/L Delfino Schumacher YouCBC W/AUTO [id number] 00:00:00* Test Item Value Reference Range Interpretation [...] = 1015) 186 K/UL Delfino OrtaCOMPREHENSIVE METABOLIC [id number] 00:00:00* Test Item Value Reference Range Interpretation Comme nts GLUCOSE (test code = 2217) 86 MG/DL BUN (test code = 2208) 16 MG/DL CREATININE (test code = 2214) 0.90 MG/DL eGFR AMER. (test cod e = 09621) 83 ML/MIN/1.73 eGFR NON- AMER. (test code = 38033) 71 ML/MIN/1.73 CALC BUN/CREAT (test code = [...] = 2219) 29 U/L Delfino OrtaCBC W/AUTO [id number] 00:00:00* Test Item Value Reference Range Interpretation [...] COUNT (test code = 1015) 186 K/UL Delifno OrtaCOMPREHENSIVE METABOLIC [id number] 00:00:00* Test Item Value Reference Range Interpretation Comme nts GLUCOSE (test code = 2217) 86 MG/DL BUN (test code = 2208) 16 MG/DL CREATININE (test code = 2214) 0.90 MG/DL eGFR AMER. (test cod e = 07658) 83 ML/MIN/1.73 eGFR NON- AMER. (test code = 64971) 71 ML/MIN/1.73 CALC BUN/CREAT (test code = [...] = 2219) 29 U/L Delfino OrtaCBC W/AUTO [id number] 00:00:00* Test Item Value Reference Range Interpretation [...] 1015) 186 K/UL Delfino Schumacher AustinCOMPREHENSIVE METABOLIC [id number] 00:00:00* Test Item Value Reference Range Interpretation Comme nts GLUCOSE (test code = 2217) 86 MG/DL BUN (test code = 2208) 16 MG/DL CREATININE (test code = 2214) 0.90 MG/DL eGFR AMER. (test cod e = 51309) 83 ML/MIN/1.73 eGFR NON- AMER. (test code = 95554) 71 ML/MIN/1.73 CALC BUN/CREAT (test code = [...] 2219) 29 U/L Delfino Schumacher AustinCOMPREHENSIVE METABOLIC [id number] 00:00:00* Test Item Value Reference Range Interpretation Comme nts GLUCOSE (test code = 2217) 86 MG/DL BUN (test code = 2208) 16 MG/DL CREATININE (test code = 2214) 0.90 MG/DL eGFR AMER. (test cod e = 93547) 83 ML/MIN/1.73 eGFR NON- AMER. (test code = 21360) 71 ML/MIN/1.73 CALC BUN/CREAT (test code = [...] code = 2219) 29 U/L Delfino Endy [place] [id number] 00:00:00* Test Item Value Reference Range Interpretation Comme nts GLUCOSE (test code = 2217) 86 MG/DL BUN (test code = 2208) 16 MG/DL CREATININE (test code = 2214) 0.90 MG/DL eGFR AMER. (test cod e = 02181) 83 ML/MIN/1.73 eGFR NON- AMER. (test code = 87264) 71 ML/MIN/1.73 CALC BUN/CREAT (test code = [...] code = 2219) 29 U/L CBC W/AUTO [id number] 00:00:00* Test Item Value Reference Range Interpretation [...] (test code = 1016) (NOTE) CBC W/AUTO [id number] 00:00:00* Test Item Value Reference Range Interpretation [...] (test code = 1016) (NOTE) CBC W/AUTO [id number] 00:00:00* Test Item Value Reference Range Interpretation [...] (test code = 1016) (NOTE) CBC W/AUTO [id number] 00:00:00* Test Item Value Reference Range Interpretation [...] code = 1016) (NOTE) Delfino OrtaCBC W/AUTO [id number] 00:00:00* Test Item Value Reference Range Interpretation [...] (test code = 1016) (NOTE) Delfino Schumacher [facility] W/AUTO [id number] 00:00:00* Test Item Value Reference Range Interpretation [...] (test code = 1016) (NOTE) Delfino Schumacher [facility] W/AUTO [id number] 00:00:00* Test Item Value Reference Range Interpretation [...] code = 1016) (NOTE) Delfino OrtaC W/AUTO [id number] 00:00:00* Test Item Value Reference Range Interpretation [...] code = 1016) (NOTE) Delfino OrtaC W/AUTO [id number] 00:00:00* Test Item Value Reference Range Interpretation [...] COMMENTS (test code = 1016) (NOTE) [facility] [id number] 00:00:00* Test Item Value Reference Range Interpretation [...] (test code = 1016) (NOTE) Delfino Schumacher [facility]/AUTO [id number] 00:00:00* Test Item Value Reference Range Interpretation [...] (test code = 1016) (NOTE) Delfino Endy [facility] W/AUTO [id number] 00:00:00* Test Item Value Reference Range Interpretation [...] (test code = 1016) (NOTE) Delfino Schumacher [place]/AUTO [id number] 00:00:00* Test Item Value Reference Range Interpretation [...] code = 1016) (NOTE) Delfino OrtaCBC W/AUTO [id number] 00:00:00* Test Item Value Reference Range Interpretation [...] code = 1016) (NOTE) Delfino OrtaC W/AUTO [id number] 00:00:00* Test Item Value Reference Range Interpretation [...] COMMENTS (test code = 1016) (NOTE) [facility] [id number] 00:00:00* Test Item Value Reference Range Interpretation [...] COMMENTS (test code = 1016) (NOTE) [facility]/AUT[facility] [id number] 00:00:00* Test Item Value Reference Range Interpretation [...] (test code = 1016) (NOTE) Delfino Schumacher [facility] W/AUTO [id number] 00:00:00* Test Item Value Reference Range Interpretation [...] (test code = 1016) (NOTE) Delfino Schumacher [facility] W/AUTO [id number] 00:00:00* Test Item Value Reference Range Interpretation [...] (test code = 1016) (NOTE) Delfino Schumacher [facility] W/AUTO [id number] 00:00:00* Test Item Value Reference Range Interpretation [...] (test code = 1016) (NOTE) Delfino Schumacher [facility] W/AUTO [id number] 00:00:00* Test Item Value Reference Range Interpretation [...] (test code = 1016) (NOTE) Delfino Schumacher [facility] W/AUTO [id number] 00:00:00* Test Item Value Reference Range Interpretation [...] COMMENTS (test code = 1016) (NOTE) [facility]/AUT[facility] [id number] 00:00:00* Test Item Value Reference Range Interpretation [...] code = 1016) (NOTE) Delfino OrtaCBC W/AUTO [id number] 00:00:00* Test Item Value Reference Range Interpretation [...] code = 1016) (NOTE) Delfino OrtaC W/AUTO [id number] 00:00:00* Test Item Value Reference Range Interpretation [...] (test code = 1016) (NOTE) Delfino Schumacher [place] W/AUTO [id number] 00:00:00* Test Item Value Reference Range Interpretation [...] (NOTE) [facility] [id number] 00:00:00* Test Item Value Reference Range Interpretation [...] (test code = 1016) (NOTE) Delfino Schumacher [employer] W/AUTO [id number] 00:00:00* Test Item Value Reference Range Interpretation [...] (test code = 1016) (NOTE) Delfino Schumacher [facility] W/AUTO [id number] 00:00:00* Test Item Value Reference Range Interpretation [...] (test code = 1016) (NOTE) Delfino Schumacher [facility] W/AUTO [id number] 00:00:00* Test Item Value Reference Range Interpretation [...] code = 1016) (NOTE) Delfino OrtaCBC W/AUTO [id number] 00:00:00* Test Item Value Reference Range Interpretation [...] code = 1016) (NOTE) Delfino OrtaC W/AUTO [id number] 00:00:00* Test Item Value Reference Range Interpretation [...] code = 1016) (NOTE) Delfino OrtaCBC W/AUTO [id number] 00:00:00* Test Item Value Reference Range Interpretation [...] (test code = 1016) (NOTE) Delfino Endy [facility] W/AUTO [id number] 00:00:00* Test Item Value Reference Range Interpretation [...] (test code = 1016) (NOTE) Delfino Endy [facility] W/AUTO [id number] 00:00:00* Test Item Value Reference Range Interpretation [...] (NOTE) [facility] [id number] 00:00:00* Test Item Value Reference Range Interpretation [...] (test code = 1016) (NOTE) Delfino Schumacher [facility] W/AUTO [id number] 00:00:00* Test Item Value Reference Range Interpretation [...] (test code = 1016) (NOTE) [facility]elfino [facility]umacher [facility]/AUT[facility] [id number] 00:00:00* Test Item Value Reference Range Interpretation [...] (test code = 1016) (NOTE) CBC W/AUTO [id number] 00:00:00* Test Item Value Reference Range Interpretation [...] code = 1016) (NOTE) VAGINAL PATHOGENS DNA [id number] 00:00:00* Test Item Value Reference Range Interpretation Comme nts DIANNA SPECIES (test code = ) NEGATIVE G. VAGINALIS (test code = ) POSITIVE T. VAGINALIS (test code = ) NEGATIVE COMPREHENSIVE METABOLIC [id number] 00:00:00* Test Item Value Reference Range Interpretation Comme nts GLUCOSE (test code = 2217) 92 MG/DL BUN (test code = 2208) 20 MG/DL CREATININE (test code = 2214) 1.31 MG/DL eGFR AMER. (test cod e = 64029) 53 ML/MIN/1.73 eGFR NON- AMER. (test code = 78952) 45 ML/MIN/1.73 CALC BUN/CREAT (test code = [...] code = 2219) 16 U/L CBC W/AUTO [id number] 00:00:00* Test Item Value Reference Range Interpretation [...] code = 1016) (NOTE) VAGINAL PATHOGENS DNA [id number] 00:00:00* Test Item Value Reference Range Interpretation Comme nts DIANNA SPECIES (test code = ) NEGATIVE G. VAGINALIS (test code = ) POSITIVE T. VAGINALIS (test code = ) NEGATIVE COMPREHENSIVE METABOLIC [id number] 00:00:00* Test Item Value Reference Range Interpretation Comme nts GLUCOSE (test code = 2217) 92 MG/DL BUN (test code = 2208) 20 MG/DL CREATININE (test code = 2214) 1.31 MG/DL eGFR AMER. (test cod e = 47723) 53 ML/MIN/1.73 eGFR NON- AMER. (test code = 23728) 45 ML/MIN/1.73 CALC BUN/CREAT (test code = [...] code = 2219) 16 U/L CBC W/AUTO [id number] 00:00:00* Test Item Value Reference Range Interpretation [...] code = 1016) (NOTE) VAGINAL PATHOGENS DNA [id number] 00:00:00* Test Item Value Reference Range Interpretation Comme nts DIANNA SPECIES (test code = ) NEGATIVE G. VAGINALIS (test code = ) POSITIVE T. VAGINALIS (test code = ) NEGATIVE COMPREHENSIVE METABOLIC [id number] 00:00:00* Test Item Value Reference Range Interpretation Comme nts GLUCOSE (test code = 2217) 92 MG/DL BUN (test code = 2208) 20 MG/DL CREATININE (test code = 2214) 1.31 MG/DL eGFR AMER. (test cod e = 17541) 53 ML/MIN/1.73 eGFR NON- AMER. (test code = 88461) 45 ML/MIN/1.73 CALC BUN/CREAT (test code = [...] code = 2219) 16 U/L CBC W/AUTO [id number] 00:00:00* Test Item Value Reference Range Interpretation [...] (test code = 1016) (NOTE) COMPREHENSIVE METABOLIC [id number] 00:00:00* Test Item Value Reference Range Interpretation Comme nts GLUCOSE (test code = 2217) 92 MG/DL BUN (test code = 2208) 20 MG/DL CREATININE (test code = 2214) 1.31 MG/DL eGFR AMER. (test cod e = 02384) 53 ML/MIN/1.73 eGFR NON- AMER. (test code = 17148) 45 ML/MIN/1.73 CALC BUN/CREAT (test code = [...] 2219) 16 U/L Delfino F YouCBC W/AUTO [id number] 00:00:00* Test Item Value Reference Range Interpretation [...] = 1016) (NOTE) Delfino OrtaVAGINAL PATHOGENS DNA [id number] 00:00:00* Test Item Value Reference Range Interpretation Comme nts DIANNA SPECIES (test code = ) NEGATIVE G. VAGINALIS (test code = 14343) POSITIVE T. VAGINALIS (test code = 85702) NEGATIVE Delfino OrtaVAGINAL PATHOGENS DNA [id number] 00:00:00* Test Item Value Reference Range Interpretation Comme nts DIANNA SPECIES (test code = 26185) NEGATIVE G. VAGINALIS (test code = 74910) POSITIVE T. VAGINALIS (test code = 06124) NEGATIVE Delfino OrtaCOMPREHENSIVE METABOLIC [id number] 00:00:00* Test Item Value Reference Range Interpretation Comme nts GLUCOSE (test code = 2217) 92 MG/DL BUN (test code = 2208) 20 MG/DL CREATININE (test code = 2214) 1.31 MG/DL eGFR AMER. (test cod e = 99607) 53 ML/MIN/1.73 eGFR NON- AMER. (test code = 81411) 45 ML/MIN/1.73 CALC BUN/CREAT (test code = [...] 2219) 16 U/L Delfino Schumacher YouCBC W/AUTO [id number] 00:00:00* Test Item Value Reference Range Interpretation [...] 1016) (NOTE) Delfino Schumacher YouVAGINAL PATHOGENS DNA [id number] 00:00:00* Test Item Value Reference Range Interpretation Comme nts DIANNA SPECIES (test code = ) NEGATIVE G. VAGINALIS (test code = ) POSITIVE T. VAGINALIS (test code = ) NEGATIVE Delfino OrtaCOMPREHENSIVE METABOLIC [id number] 00:00:00* Test Item Value Reference Range Interpretation Comme nts GLUCOSE (test code = 2217) 92 MG/DL BUN (test code = 2208) 20 MG/DL CREATININE (test code = 2214) 1.31 MG/DL eGFR AMER. (test cod e = 59085) 53 ML/MIN/1.73 eGFR NON- AMER. (test code = 39874) 45 ML/MIN/1.73 CALC BUN/CREAT (test code = [...] = 2219) 16 U/L Delfino OrtaCBC W/AUTO [id number] 00:00:00* Test Item Value Reference Range Interpretation [...] = 1016) (NOTE) Delfino OrtaVAGINAL PATHOGENS DNA [id number] 00:00:00* Test Item Value Reference Range Interpretation Comme nts DIANNA SPECIES (test code = 44702) NEGATIVE G. VAGINALIS (test code = ) POSITIVE T. VAGINALIS (test code = ) NEGATIVE Delfino Schumacher AustinCOMPREHENSIVE METABOLIC [id number] 00:00:00* Test Item Value Reference Range Interpretation Comme nts GLUCOSE (test code = 2217) 92 MG/DL BUN (test code = 2208) 20 MG/DL CREATININE (test code = 2214) 1.31 MG/DL eGFR AMER. (test cod e = 65005) 53 ML/MIN/1.73 eGFR NON- AMER. (test code = 94771) 45 ML/MIN/1.73 CALC BUN/CREAT (test code = [...] 2219) 16 U/L Delfino Schumacher AustinCOMPREHENSIVE METABOLIC [id number] 00:00:00* Test Item Value Reference Range Interpretation Comme nts GLUCOSE (test code = 2217) 92 MG/DL BUN (test code = 2208) 20 MG/DL CREATININE (test code = 2214) 1.31 MG/DL eGFR AMER. (test cod e = 85918) 53 ML/MIN/1.73 eGFR NON- AMER. (test code = 12201) 45 ML/MIN/1.73 CALC BUN/CREAT (test code = [...] = 2219) 16 U/L Delfino OrtaCBC W/AUTO [id number] 00:00:00* Test Item Value Reference Range Interpretation [...] 1016) (NOTE) Delfino Schumacher YouVAGINAL PATHOGENS DNA [id number] 00:00:00* Test Item Value Reference Range Interpretation Comme nts DIANNA SPECIES (test code = ) NEGATIVE G. VAGINALIS (test code = ) POSITIVE T. VAGINALIS (test code = ) NEGATIVE Delfino OrtaCOMPREHENSIVE METABOLIC [id number] 00:00:00* Test Item Value Reference Range Interpretation Comme nts GLUCOSE (test code = 2217) 92 MG/DL BUN (test code = 2208) 20 MG/DL CREATININE (test code = 2214) 1.31 MG/DL eGFR AMER. (test cod e = 15000) 53 ML/MIN/1.73 eGFR NON- AMER. (test code = 11260) 45 ML/MIN/1.73 CALC BUN/CREAT (test code = [...] code = 2219) 16 U/L Delfino Schumacher [facility] [employer] W/AUTO [id number] 00:00:00* Test Item Value Reference Range Interpretation [...] (test code = 1016) (NOTE) Delfino Schumacher [employer] W/AUTO [id number] 00:00:00* Test Item Value Reference Range Interpretation [...] = 1016) (NOTE) Delfino OrtaVAGINAL PATHOGENS DNA [id number] 00:00:00* Test Item Value Reference Range Interpretation Comme nts DIANNA SPECIES (test code = ) NEGATIVE G. VAGINALIS (test code = ) POSITIVE T. VAGINALIS (test code = ) NEGATIVE Delfino OrtaCOMPREHENSIVE METABOLIC [id number] 00:00:00* Test Item Value Reference Range Interpretation Comme nts GLUCOSE (test code = 2217) 92 MG/DL BUN (test code = 2208) 20 MG/DL CREATININE (test code = 2214) 1.31 MG/DL eGFR AMER. (test cod e = 47173) 53 ML/MIN/1.73 eGFR NON- AMER. (test code = 27309) 45 ML/MIN/1.73 CALC BUN/CREAT (test code = [...] = 2219) 16 U/L Delfino OrtaCBC W/AUTO [id number] 00:00:00* Test Item Value Reference Range Interpretation [...] = 1016) (NOTE) Delfino OrtaVAGINAL PATHOGENS DNA [id number] 00:00:00* Test Item Value Reference Range Interpretation Comme nts DIANNA SPECIES (test code = ) NEGATIVE G. VAGINALIS (test code = ) POSITIVE T. VAGINALIS (test code = ) NEGATIVE Delfino OrtaCOMPREHENSIVE METABOLIC [id number] 00:00:00* Test Item Value Reference Range Interpretation Comme nts GLUCOSE (test code = 2217) 92 MG/DL BUN (test code = 2208) 20 MG/DL CREATININE (test code = 2214) 1.31 MG/DL eGFR AMER. (test cod e = 15886) 53 ML/MIN/1.73 eGFR NON- AMER. (test code = 02492) 45 ML/MIN/1.73 CALC BUN/CREAT (test code = [...] = 2219) 16 U/L Delfino OrtaCBC W/AUTO [id number] 00:00:00* Test Item Value Reference Range Interpretation [...] = 1016) (NOTE) Delfino OrtaVAGINAL PATHOGENS DNA [id number] 00:00:00* Test Item Value Reference Range Interpretation Comme nts DIANNA SPECIES (test code = ) NEGATIVE G. VAGINALIS (test code = 19066) POSITIVE T. VAGINALIS (test code = 61213) NEGATIVE Delfino OrtaCOMPREHENSIVE METABOLIC [id number] 00:00:00* Test Item Value Reference Range Interpretation Comme nts GLUCOSE (test code = 2217) 92 MG/DL BUN (test code = 2208) 20 MG/DL CREATININE (test code = 2214) 1.31 MG/DL eGFR AMER. (test cod e = 19081) 53 ML/MIN/1.73 eGFR NON- AMER. (test code = 23723) 45 ML/MIN/1.73 CALC BUN/CREAT (test code = [...] = 2219) 16 U/L Delfino OrtaCBC W/AUTO [id number] 00:00:00* Test Item Value Reference Range Interpretation [...] = 1016) (NOTE) Delfino OrtaVAGINAL PATHOGENS DNA [id number] 00:00:00* Test Item Value Reference Range Interpretation Comme nts DIANNA SPECIES (test code = ) NEGATIVE G. VAGINALIS (test code = ) POSITIVE T. VAGINALIS (test code = ) NEGATIVE Delfino OrtaCOMPREHENSIVE METABOLIC [id number] 00:00:00* Test Item Value Reference Range Interpretation Comme nts GLUCOSE (test code = 2217) 92 MG/DL BUN (test code = 2208) 20 MG/DL CREATININE (test code = 2214) 1.31 MG/DL eGFR AMER. (test cod e = 09469) 53 ML/MIN/1.73 eGFR NON- AMER. (test code = 38538) 45 ML/MIN/1.73 CALC BUN/CREAT (test code = [...] code = 2219) 16 U/L [facility]ino F [facility]/AUTO [id number] 00:00:00* Test Item Value Reference Range Interpretation [...] = 1016) (NOTE) Delfino OrtaVAGINAL PATHOGENS DNA [id number] 00:00:00* Test Item Value Reference Range Interpretation Comme nts DIANNA SPECIES (test code = ) NEGATIVE G. VAGINALIS (test code = ) POSITIVE T. VAGINALIS (test code = ) NEGATIVE Delfino OrtaCOMPREHENSIVE METABOLIC [id number] 00:00:00* Test Item Value Reference Range Interpretation Comme nts GLUCOSE (test code = 2217) 92 MG/DL BUN (test code = 2208) 20 MG/DL CREATININE (test code = 2214) 1.31 MG/DL eGFR AMER. (test cod e = 42930) 53 ML/MIN/1.73 eGFR NON- AMER. (test code = 05917) 45 ML/MIN/1.73 CALC BUN/CREAT (test code = [...] = 2219) 16 U/L Delfino OrtaCBC W/AUTO [id number] 00:00:00* Test Item Value Reference Range Interpretation [...] 1016) (NOTE) Delfino Schumacher YouVAGINAL PATHOGENS DNA [id number] 00:00:00* Test Item Value Reference Range Interpretation Comme nts DIANNA SPECIES (test code = ) NEGATIVE G. VAGINALIS (test code = ) POSITIVE T. VAGINALIS (test code = ) NEGATIVE Delfino OrtaCOMPREHENSIVE METABOLIC [id number] 00:00:00* Test Item Value Reference Range Interpretation Comme nts GLUCOSE (test code = 2217) 92 MG/DL BUN (test code = 2208) 20 MG/DL CREATININE (test code = 2214) 1.31 MG/DL eGFR AMER. (test cod e = 69558) 53 ML/MIN/1.73 eGFR NON- AMER. (test code = 34053) 45 ML/MIN/1.73 CALC BUN/CREAT (test code = [...] = 2219) 16 U/L Delfino OrtaCBC W/AUTO [id number] 00:00:00* Test Item Value Reference Range Interpretation [...] 1016) (NOTE) Delfino Schumacher AustinVAGINAL PATHOGENS DNA [id number] 00:00:00* Test Item Value Reference Range Interpretation Comme nts DIANNA SPECIES (test code = ) NEGATIVE G. VAGINALIS (test code = ) POSITIVE T. VAGINALIS (test code = ) NEGATIVE Delfino Endy YouCOMPREHENSIVE METABOLIC [id number] 00:00:00* Test Item Value Reference Range Interpretation Comme nts GLUCOSE (test code = 2217) 92 MG/DL BUN (test code = 2208) 20 MG/DL CREATININE (test code = 2214) 1.31 MG/DL eGFR AMER. (test cod e = 16848) 53 ML/MIN/1.73 eGFR NON- AMER. (test code = 75999) 45 ML/MIN/1.73 CALC BUN/CREAT (test code = [...] = 2219) 16 U/L Delfino OrtaCBC W/AUTO [id number] 00:00:00* Test Item Value Reference Range Interpretation [...] = 1016) (NOTE) Delfino OrtaVAGINAL PATHOGENS DNA [id number] 00:00:00* Test Item Value Reference Range Interpretation Comme nts DIANNA SPECIES (test code = 37823) NEGATIVE G. VAGINALIS (test code = 49461) POSITIVE T. VAGINALIS (test code = 92431) NEGATIVE Delfino OrtaCOMPREHENSIVE METABOLIC [id number] 00:00:00* Test Item Value Reference Range Interpretation Comme nts GLUCOSE (test code = 2217) 92 MG/DL BUN (test code = 2208) 20 MG/DL CREATININE (test code = 2214) 1.31 MG/DL eGFR AMER. (test cod e = 98502) 53 ML/MIN/1.73 eGFR NON- AMER. (test code = 93075) 45 ML/MIN/1.73 CALC BUN/CREAT (test code = [...] 2219) 16 U/L Delfino Schumacher YouCBC W/AUTO [id number] 00:00:00* Test Item Value Reference Range Interpretation [...] 1016) (NOTE) Delfino Schumacher YouVAGINAL PATHOGENS DNA [id number] 00:00:00* Test Item Value Reference Range Interpretation Comme nts DIANNA SPECIES (test code = ) NEGATIVE G. VAGINALIS (test code = ) POSITIVE T. VAGINALIS (test code = ) NEGATIVE Delfino Schumacher YouCOMPREHENSIVE METABOLIC [id number] 00:00:00* Test Item Value Reference Range Interpretation Comme nts GLUCOSE (test code = 2217) 92 MG/DL BUN (test code = 2208) 20 MG/DL CREATININE (test code = 2214) 1.31 MG/DL eGFR AMER. (test cod e = 56793) 53 ML/MIN/1.73 eGFR NON- AMER. (test code = 01189) 45 ML/MIN/1.73 CALC BUN/CREAT (test code = [...] = 2219) 16 U/L Delfino OrtaCBC W/AUTO [id number] 00:00:00* Test Item Value Reference Range Interpretation [...] = 1016) (NOTE) Delfino OrtaVAGINAL PATHOGENS DNA [id number] 00:00:00* Test Item Value Reference Range Interpretation Comme nts DIANNA SPECIES (test code = ) NEGATIVE G. VAGINALIS (test code = ) POSITIVE T. VAGINALIS (test code = ) NEGATIVE Delfino OrtaCOMPREHENSIVE METABOLIC [id number] 00:00:00* Test Item Value Reference Range Interpretation Comme nts GLUCOSE (test code = 2217) 92 MG/DL BUN (test code = 2208) 20 MG/DL CREATININE (test code = 2214) 1.31 MG/DL eGFR AMER. (test cod e = 25535) 53 ML/MIN/1.73 eGFR NON- AMER. (test code = 76807) 45 ML/MIN/1.73 CALC BUN/CREAT (test code = [...] = 2219) 16 U/L Delfino OrtaCBC W/AUTO [id number] 00:00:00* Test Item Value Reference Range Interpretation [...] = 1016) (NOTE) Delfino OrtaVAGINAL PATHOGENS DNA [id number] 00:00:00* Test Item Value Reference Range Interpretation Comme nts DIANNA SPECIES (test code = ) NEGATIVE G. VAGINALIS (test code = ) POSITIVE T. VAGINALIS (test code = ) NEGATIVE Delfino OrtaCOMPREHENSIVE METABOLIC [id number] 00:00:00* Test Item Value Reference Range Interpretation Comme nts GLUCOSE (test code = 2217) 92 MG/DL BUN (test code = 2208) 20 MG/DL CREATININE (test code = 2214) 1.31 MG/DL eGFR AMER. (test cod e = 97385) 53 ML/MIN/1.73 eGFR NON- AMER. (test code = 22026) 45 ML/MIN/1.73 CALC BUN/CREAT (test code = [...] = 2219) 16 U/L Delfino OrtaCBC W/AUTO [id number] 00:00:00* Test Item Value Reference Range Interpretation [...] 1016) (NOTE) Delfino Schumacher AustinVAGINAL PATHOGENS DNA [id number] 00:00:00* Test Item Value Reference Range Interpretation Comme nts DIANNA SPECIES (test code = ) NEGATIVE G. VAGINALIS (test code = ) POSITIVE T. VAGINALIS (test code = ) NEGATIVE Delfino OrtaCOMPREHENSIVE METABOLIC [id number] 00:00:00* Test Item Value Reference Range Interpretation Comme nts GLUCOSE (test code = 2217) 92 MG/DL BUN (test code = 2208) 20 MG/DL CREATININE (test code = 2214) 1.31 MG/DL eGFR AMER. (test cod e = 82373) 53 ML/MIN/1.73 eGFR NON- AMER. (test code = 32575) 45 ML/MIN/1.73 CALC BUN/CREAT (test code = [...] = 2219) 16 U/L Delfino OrtaCBC W/AUTO [id number] 00:00:00* Test Item Value Reference Range Interpretation [...] = 1016) (NOTE) Delfino OrtaVAGINAL PATHOGENS DNA [id number] 00:00:00* Test Item Value Reference Range Interpretation Comme nts DIANNA SPECIES (test code = ) NEGATIVE G. VAGINALIS (test code = 18045) POSITIVE T. VAGINALIS (test code = 88136) NEGATIVE Delfino OrtaCOMPREHENSIVE METABOLIC [id number] 00:00:00* Test Item Value Reference Range Interpretation Comme nts GLUCOSE (test code = 2217) 92 MG/DL BUN (test code = 2208) 20 MG/DL CREATININE (test code = 2214) 1.31 MG/DL eGFR AMER. (test cod e = 77650) 53 ML/MIN/1.73 eGFR NON- AMER. (test code = 47705) 45 ML/MIN/1.73 CALC BUN/CREAT (test code = [...] = 2219) 16 U/L Delfino OrtaCBC W/AUTO [id number] 00:00:00* Test Item Value Reference Range Interpretation [...] = 1016) (NOTE) Delfino OrtaVAGINAL PATHOGENS DNA [id number] 00:00:00* Test Item Value Reference Range Interpretation Comme nts DIANNA SPECIES (test code = ) NEGATIVE G. VAGINALIS (test code = ) POSITIVE T. VAGINALIS (test code = ) NEGATIVE Delfino OrtaCOMPREHENSIVE METABOLIC [id number] 00:00:00* Test Item Value Reference Range Interpretation Comme nts GLUCOSE (test code = 2217) 92 MG/DL BUN (test code = 2208) 20 MG/DL CREATININE (test code = 2214) 1.31 MG/DL eGFR AMER. (test cod e = 07367) 53 ML/MIN/1.73 eGFR NON- AMER. (test code = 42208) 45 ML/MIN/1.73 CALC BUN/CREAT (test code = [...] 2219) 16 U/L Delfino Endy YouCBC W/AUTO [id number] 00:00:00* Test Item Value Reference Range Interpretation [...] 1016) (NOTE) Delfino Schumacher YouVAGINAL PATHOGENS DNA [id number] 00:00:00* Test Item Value Reference Range Interpretation Comme nts DIANNA SPECIES (test code = ) NEGATIVE G. VAGINALIS (test code = ) POSITIVE T. VAGINALIS (test code = ) NEGATIVE Delfino Schumacher YouCOMPREHENSIVE METABOLIC [id number] 00:00:00* Test Item Value Reference Range Interpretation Comme nts GLUCOSE (test code = 7) 92 MG/DL BUN (test code = 2208) 20 MG/DL CREATININE (test code = 2214) 1.31 MG/DL eGFR AMER. (test cod e = 22993) 53 ML/MIN/1.73 eGFR NON- AMER. (test code = 13018) 45 ML/MIN/1.73 CALC BUN/CREAT (test code = [...] = 2219) 16 U/L Delfino OrtaCBC W/AUTO [id number] 00:00:00* Test Item Value Reference Range Interpretation [...] = 1016) (NOTE) Delfino OrtaVAGINAL PATHOGENS DNA [id number] 00:00:00* Test Item Value Reference Range Interpretation Comme nts DIANNA SPECIES (test code = ) NEGATIVE G. VAGINALIS (test code = ) POSITIVE T. VAGINALIS (test code = ) NEGATIVE Delfino OrtaCOMPREHENSIVE METABOLIC [id number] 00:00:00* Test Item Value Reference Range Interpretation Comme nts GLUCOSE (test code = 2217) 92 MG/DL BUN (test code = 2208) 20 MG/DL CREATININE (test code = 2214) 1.31 MG/DL eGFR AMER. (test cod e = 59331) 53 ML/MIN/1.73 eGFR NON- AMER. (test code = 64362) 45 ML/MIN/1.73 CALC BUN/CREAT (test code = [...] 2219) 16 U/L Delfino Schumacher YouCBC W/AUTO [id number] 00:00:00* Test Item Value Reference Range Interpretation [...] = 1016) (NOTE) Delfino OrtaVAGINAL PATHOGENS DNA [id number] 00:00:00* Test Item Value Reference Range Interpretation Comme nts DIANNA SPECIES (test code = ) NEGATIVE G. VAGINALIS (test code = ) POSITIVE T. VAGINALIS (test code = ) NEGATIVE Delfino OrtaCOMPREHENSIVE METABOLIC [id number] 00:00:00* Test Item Value Reference Range Interpretation Comme nts GLUCOSE (test code = 2217) 92 MG/DL BUN (test code = 2208) 20 MG/DL CREATININE (test code = 2214) 1.31 MG/DL eGFR AMER. (test cod e = 24980) 53 ML/MIN/1.73 eGFR NON- AMER. (test code = 64644) 45 ML/MIN/1.73 CALC BUN/CREAT (test code = [...] = 2219) 16 U/L Delfino OrtaCBC W/AUTO [id number] 00:00:00* Test Item Value Reference Range Interpretation [...] 1016) (NOTE) Delfino Endy AustinVAGINAL PATHOGENS DNA [id number] 00:00:00* Test Item Value Reference Range Interpretation Comme nts DIANNA SPECIES (test code = ) NEGATIVE G. VAGINALIS (test code = ) POSITIVE T. VAGINALIS (test code = ) NEGATIVE Delfino Schumacher YouCOMPREHENSIVE METABOLIC [id number] 00:00:00* Test Item Value Reference Range Interpretation Comme nts GLUCOSE (test code = 2217) 92 MG/DL BUN (test code = 2208) 20 MG/DL CREATININE (test code = 2214) 1.31 MG/DL eGFR AMER. (test cod e = 49524) 53 ML/MIN/1.73 eGFR NON- AMER. (test code = 48161) 45 ML/MIN/1.73 CALC BUN/CREAT (test code = [...] = 2219) 16 U/L Delfino OrtaCBC W/AUTO [id number] 00:00:00* Test Item Value Reference Range Interpretation [...] = 1016) (NOTE) Delfino OrtaVAGINAL PATHOGENS DNA [id number] 00:00:00* Test Item Value Reference Range Interpretation Comme nts DIANNA SPECIES (test code = ) NEGATIVE G. VAGINALIS (test code = ) POSITIVE T. VAGINALIS (test code = ) NEGATIVE Delfino OrtaCOMPREHENSIVE METABOLIC [id number] 00:00:00* Test Item Value Reference Range Interpretation Comme nts GLUCOSE (test code = 2217) 92 MG/DL BUN (test code = 2208) 20 MG/DL CREATININE (test code = 2214) 1.31 MG/DL eGFR AMER. (test cod e = 81549) 53 ML/MIN/1.73 eGFR NON- AMER. (test code = 73769) 45 ML/MIN/1.73 CALC BUN/CREAT (test code = [...] = 2219) 16 U/L Delfino OrtaCBC W/AUTO [id number] 00:00:00* Test Item Value Reference Range Interpretation [...] = 1016) (NOTE) Delfino OrtaVAGINAL PATHOGENS DNA [id number] 00:00:00* Test Item Value Reference Range Interpretation Comme nts DIANNA SPECIES (test code = ) NEGATIVE G. VAGINALIS (test code = ) POSITIVE T. VAGINALIS (test code = 05766) NEGATIVE Delfino OrtaCOMPREHENSIVE METABOLIC [id number] 00:00:00* Test Item Value Reference Range Interpretation Comme nts GLUCOSE (test code = 2217) 92 MG/DL BUN (test code = 2208) 20 MG/DL CREATININE (test code = 2214) 1.31 MG/DL eGFR AMER. (test cod e = 69029) 53 ML/MIN/1.73 eGFR NON- AMER. (test code = 19346) 45 ML/MIN/1.73 CALC BUN/CREAT (test code = [...] = 2219) 16 U/L Delfino OrtaCBC W/AUTO [id number] 00:00:00* Test Item Value Reference Range Interpretation [...] = 1016) (NOTE) Delfino OrtaVAGINAL PATHOGENS DNA [id number] 00:00:00* Test Item Value Reference Range Interpretation Comme nts DIANNA SPECIES (test code = ) NEGATIVE G. VAGINALIS (test code = ) POSITIVE T. VAGINALIS (test code = ) NEGATIVE Delfino OrtaCOMPREHENSIVE METABOLIC [id number] 00:00:00* Test Item Value Reference Range Interpretation Comme nts GLUCOSE (test code = 2217) 92 MG/DL BUN (test code = 2208) 20 MG/DL CREATININE (test code = 2214) 1.31 MG/DL eGFR AMER. (test cod e = 92490) 53 ML/MIN/1.73 eGFR NON- AMER. (test code = 89685) 45 ML/MIN/1.73 CALC BUN/CREAT (test code = [...] (test code = 2219) 16 U/L [facility]BAP[facility]CA[facility] W/AUTO [id number] 00:00:00* Test Item Value Reference Range Interpretation [...] 1016) (NOTE) Delfino F AustinVAGINAL PATHOGENS DNA [id number] 00:00:00* Test Item Value Reference Range Interpretation Comme nts DIANNA SPECIES (test code = ) NEGATIVE G. VAGINALIS (test code = ) POSITIVE T. VAGINALIS (test code = ) NEGATIVE Delfino OrtaCOMPREHENSIVE METABOLIC [id number] 00:00:00* Test Item Value Reference Range Interpretation Comme nts GLUCOSE (test code = 2217) 92 MG/DL BUN (test code = 2208) 20 MG/DL CREATININE (test code = 2214) 1.31 MG/DL eGFR AMER. (test cod e = 35759) 53 ML/MIN/1.73 eGFR NON- AMER. (test code = 12198) 45 ML/MIN/1.73 CALC BUN/CREAT (test code = [...] = 2219) 16 U/L Delfino OrtaCBC W/AUTO [id number] 00:00:00* Test Item Value Reference Range Interpretation [...] = 1016) (NOTE) Delfino OrtaVAGINAL PATHOGENS DNA [id number] 00:00:00* Test Item Value Reference Range Interpretation Comme nts DIANNA SPECIES (test code = ) NEGATIVE G. VAGINALIS (test code = ) POSITIVE T. VAGINALIS (test code = ) NEGATIVE Delfino OrtaCOMPREHENSIVE METABOLIC [id number] 00:00:00* Test Item Value Reference Range Interpretation Comme nts GLUCOSE (test code = 2217) 92 MG/DL BUN (test code = 2208) 20 MG/DL CREATININE (test code = 2214) 1.31 MG/DL eGFR AMER. (test cod e = 90814) 53 ML/MIN/1.73 eGFR NON- AMER. (test code = 73256) 45 ML/MIN/1.73 CALC BUN/CREAT (test code = [...] = 2219) 16 U/L Delfino OrtaCBC W/AUTO [id number] 00:00:00* Test Item Value Reference Range Interpretation [...] 1016) (NOTE) Delfino Endy AustinVAGINAL PATHOGENS DNA [id number] 00:00:00* Test Item Value Reference Range Interpretation Comme nts DIANNA SPECIES (test code = ) NEGATIVE G. VAGINALIS (test code = ) POSITIVE T. VAGINALIS (test code = ) NEGATIVE Delfino Schumacher YouCOMPREHENSIVE METABOLIC [id number] 00:00:00* Test Item Value Reference Range Interpretation Comme nts GLUCOSE (test code = 2217) 92 MG/DL BUN (test code = 2208) 20 MG/DL CREATININE (test code = 2214) 1.31 MG/DL eGFR AMER. (test cod e = 75588) 53 ML/MIN/1.73 eGFR NON- AMER. (test code = 19008) 45 ML/MIN/1.73 CALC BUN/CREAT (test code = [...] = 2219) 16 U/L Delfino OrtaCBC W/AUTO [id number] 00:00:00* Test Item Value Reference Range Interpretation [...] = 1016) (NOTE) Delfino OrtaVAGINAL PATHOGENS DNA [id number] 00:00:00* Test Item Value Reference Range Interpretation Comme nts DIANNA SPECIES (test code = ) NEGATIVE G. VAGINALIS (test code = ) POSITIVE T. VAGINALIS (test code = 06218) NEGATIVE Delfino OrtaCOMPREHENSIVE METABOLIC [id number] 00:00:00* Test Item Value Reference Range Interpretation Comme nts GLUCOSE (test code = 2217) 92 MG/DL BUN (test code = 2208) 20 MG/DL CREATININE (test code = 2214) 1.31 MG/DL eGFR AMER. (test cod e = 00131) 53 ML/MIN/1.73 eGFR NON- AMER. (test code = 85695) 45 ML/MIN/1.73 CALC BUN/CREAT (test code = [...] = 2219) 16 U/L Delfino OrtaCBC W/AUTO [id number] 00:00:00* Test Item Value Reference Range Interpretation [...] 1016) (NOTE) Delfino F YouVAGINAL PATHOGENS DNA [id number] 00:00:00* Test Item Value Reference Range Interpretation Comme nts DIANNA SPECIES (test code = ) NEGATIVE G. VAGINALIS (test code = ) POSITIVE T. VAGINALIS (test code = ) NEGATIVE Delfino Schumacher YouCOMPREHENSIVE METABOLIC [id number] 00:00:00* Test Item Value Reference Range Interpretation Comme nts GLUCOSE (test code = 2217) 92 MG/DL BUN (test code = 2208) 20 MG/DL CREATININE (test code = 2214) 1.31 MG/DL eGFR AMER. (test cod e = 25903) 53 ML/MIN/1.73 eGFR NON- AMER. (test code = 10292) 45 ML/MIN/1.73 CALC BUN/CREAT (test code = [...] = 2219) 16 U/L Delfino OrtaCBC W/AUTO [id number] 00:00:00* Test Item Value Reference Range Interpretation [...] = 1016) (NOTE) Delfino OrtaVAGINAL PATHOGENS DNA [id number] 00:00:00* Test Item Value Reference Range Interpretation Comme nts DIANNA SPECIES (test code = ) NEGATIVE G. VAGINALIS (test code = ) POSITIVE T. VAGINALIS (test code = 79066) NEGATIVE Delfino OrtaCOMPREHENSIVE METABOLIC [id number] 00:00:00* Test Item Value Reference Range Interpretation Comme nts GLUCOSE (test code = 2217) 92 MG/DL BUN (test code = 2208) 20 MG/DL CREATININE (test code = 2214) 1.31 MG/DL eGFR AMER. (test cod e = 53884) 53 ML/MIN/1.73 eGFR NON- AMER. (test code = 78811) 45 ML/MIN/1.73 CALC BUN/CREAT (test code = [...] = 2219) 16 U/L Delfino OrtaCBC W/AUTO [id number] 00:00:00* Test Item Value Reference Range Interpretation [...] = 1016) (NOTE) Delfino OrtaVAGINAL PATHOGENS DNA [id number] 00:00:00* Test Item Value Reference Range Interpretation Comme nts DIANNA SPECIES (test code = ) NEGATIVE G. VAGINALIS (test code = ) POSITIVE T. VAGINALIS (test code = ) NEGATIVE Delfino OrtaCOMPREHENSIVE METABOLIC [id number] 00:00:00* Test Item Value Reference Range Interpretation Comme nts GLUCOSE (test code = 2217) 92 MG/DL BUN (test code = 2208) 20 MG/DL CREATININE (test code = 2214) 1.31 MG/DL eGFR AMER. (test cod e = 43776) 53 ML/MIN/1.73 eGFR NON- AMER. (test code = 15078) 45 ML/MIN/1.73 CALC BUN/CREAT (test code = [...] = 2219) 16 U/L Delfino OrtaCBC W/AUTO [id number] 00:00:00* Test Item Value Reference Range Interpretation [...] 1016) (NOTE) Delfino Schumacher AustinVAGINAL PATHOGENS DNA [id number] 00:00:00* Test Item Value Reference Range Interpretation Comme nts DIANNA SPECIES (test code = ) NEGATIVE G. VAGINALIS (test code = 06534) POSITIVE T. VAGINALIS (test code = 16029) NEGATIVE Delfino Schumacher AustinVAGINAL PATHOGENS DNA [id number] 00:00:00* Test Item Value Reference Range Interpretation Comme nts DIANNA SPECIES (test code = ) NEGATIVE G. VAGINALIS (test code = 99627) POSITIVE T. VAGINALIS (test code = 80714) NEGATIVE COMPREHENSIVE METABOLIC [id number] 00:00:00* Test Item Value Reference Range Interpretation Comme nts GLUCOSE (test code = 2217) 92 MG/DL BUN (test code = 8) 20 MG/DL CREATININE (test code = 4) 1.31 MG/DL eGFR AMER. (test cod e = 10190) 53 ML/MIN/1.73 eGFR NON- AMER. (test code = 65520) 45 ML/MIN/1.73 CALC BUN/CREAT (test code = [...] code = 2219) 16 U/L COMPREHENSIVE METABOLIC [id number] 00:00:00* Test Item Value Reference Range Interpretation Comme nts GLUCOSE (test code = 2217) 95 MG/DL BUN (test code = 2208) 21 MG/DL CREATININE (test code = 2214) 0.87 MG/DL eGFR AMER. (test cod e = 33671) 87 ML/MIN/1.73 eGFR NON- AMER. (test code = 05088) 75 ML/MIN/1.73 CALC BUN/CREAT (test code = [...] (test code = 2219) 8 U/L URIC [id number] 00:00:00* Test Item Value Reference Range Interpretation Comme nts URIC ACID (test code = 2233) 8.5 MG/DL VITAMIN [id number] 00:00:00* Test Item Value Reference Range Interpretation Comme nts VITAMIN B-12 (test code = 2840) 335 PG/ML CBC W/AUTO [id number] 00:00:00* Test Item Value Reference Range Interpretation [...] (test code = 1015) 212 K/UL LIPID [id number] 00:00:00* Test Item Value Reference Range Interpretation Comme nts CHOLESTEROL (test code = 2210) 141 MG/DL TRIGLYCERIDES (test code = 2232) 71 MG/DL HDL CHOLESTEROL (test code = 2220) 69 MG/DL CALC LDL CHOL (test code = 2237) 58 MG/DL RISK RATIO LDL/HDL (test cod e = 2238) 0.84 RATIO COMPREHENSIVE METABOLIC [id number] 00:00:00* Test Item Value Reference Range Interpretation Comme nts GLUCOSE (test code = 2217) 95 MG/DL BUN (test code = 2208) 21 MG/DL CREATININE (test code = 2214) 0.87 MG/DL eGFR AMER. (test cod e = 31416) 87 ML/MIN/1.73 eGFR NON- AMER. (test code = 18038) 75 ML/MIN/1.73 CALC BUN/CREAT (test code = [...] (test code = 2219) 8 U/L URIC [id number] 00:00:00* Test Item Value Reference Range Interpretation Comme nts URIC ACID (test code = 2233) 8.5 MG/DL VITAMIN [id number] 00:00:00* Test Item Value Reference Range Interpretation Comme nts VITAMIN B-12 (test code = 2840) 335 PG/ML CBC W/AUTO [id number] 00:00:00* Test Item Value Reference Range Interpretation [...] (test code = 1015) 212 K/UL LIPID [id number] 00:00:00* Test Item Value Reference Range Interpretation Comme nts CHOLESTEROL (test code = 2210) 141 MG/DL TRIGLYCERIDES (test code = 2232) 71 MG/DL HDL CHOLESTEROL (test code = 2220) 69 MG/DL CALC LDL CHOL (test code = 2237) 58 MG/DL RISK RATIO LDL/HDL (test cod e = 2238) 0.84 RATIO COMPREHENSIVE METABOLIC [id number] 00:00:00* Test Item Value Reference Range Interpretation Comme nts GLUCOSE (test code = 2217) 95 MG/DL BUN (test code = 2208) 21 MG/DL CREATININE (test code = 2214) 0.87 MG/DL eGFR AMER. (test cod e = 69898) 87 ML/MIN/1.73 eGFR NON- AMER. (test code = 44510) 75 ML/MIN/1.73 CALC BUN/CREAT (test code = [...] (test code = 2219) 8 U/L URIC [id number] 00:00:00* Test Item Value Reference Range Interpretation Comme [facility] URIC ACID (test code = 2233) 8.5 MG/DL VITAMIN [id number] 00:00:00* Test Item Value Reference Range Interpretation Comme [facility] VITAMIN B-12 (test code = 2840) 335 PG/ML CBC W/AUTO [id number] 00:00:00* Test Item Value Reference Range Interpretation [...] (test code = 1015) 212 K/UL LIPID [id number] 00:00:00* Test Item Value Reference Range Interpretation Comme nts CHOLESTEROL (test code = 2210) 141 MG/DL TRIGLYCERIDES (test code = 2232) 71 MG/DL HDL CHOLESTEROL (test code = 2220) 69 MG/DL CALC LDL CHOL (test code = 2237) 58 MG/DL RISK RATIO LDL/HDL (test cod e = 2238) 0.84 RATIO COMPREHENSIVE METABOLIC [id number] 00:00:00* Test Item Value Reference Range Interpretation Comme nts GLUCOSE (test code = 2217) 95 MG/DL BUN (test code = 2208) 21 MG/DL CREATININE (test code = 2214) 0.87 MG/DL eGFR AMER. (test cod e = 44206) 87 ML/MIN/1.73 eGFR NON- AMER. (test code = 18223) 75 ML/MIN/1.73 CALC BUN/CREAT (test code = [...] (test code = 2219) 8 U/L URIC [id number] 00:00:00* Test Item Value Reference Range Interpretation Comme nts URIC ACID (test code = 2233) 8.5 MG/DL VITAMIN [id number] 00:00:00* Test Item Value Reference Range Interpretation Comme nts VITAMIN B-12 (test code = 2840) 335 PG/ML CBC W/AUTO [id number] 00:00:00* Test Item Value Reference Range Interpretation [...] = 1015) 212 K/UL Delfino OrtaCOMPREHENSIVE METABOLIC [id number] 00:00:00* Test Item Value Reference Range Interpretation Comme nts GLUCOSE (test code = 2217) 95 MG/DL BUN (test code = 2208) 21 MG/DL CREATININE (test code = 2214) 0.87 MG/DL eGFR AMER. (test cod e = 73260) 87 ML/MIN/1.73 eGFR NON- AMER. (test code = 62670) 75 ML/MIN/1.73 CALC BUN/CREAT (test code = [...] code = 2219) 8 U/L Delfino OrtaURIC [id number] 00:00:00* Test Item Value Reference Range Interpretation Comme nts URIC ACID (test code = 2233) 8.5 MG/DL Delfino Schumacher YouVITAMIN [id number] 00:00:00* Test Item Value Reference Range Interpretation Comme nts VITAMIN B-12 (test code = 2840) 335 PG/ML Delfino OrtaCBC W/AUTO [id number] 00:00:00* Test Item Value Reference Range Interpretation [...] code = 1015) 212 K/UL Delfino OrtaLIPID [id number] 00:00:00* Test Item Value Reference Range Interpretation Comme nts CHOLESTEROL (test code = 2210) 141 MG/DL TRIGLYCERIDES (test code = 2232) 71 MG/DL HDL CHOLESTEROL (test code = 2220) 69 MG/DL CALC LDL CHOL (test code = 2237) 58 MG/DL RISK RATIO LDL/HDL (test cod e = 2238) 0.84 RATIO Delfino OrtaCOMPREHENSIVE METABOLIC [id number] 00:00:00* Test Item Value Reference Range Interpretation Comme nts GLUCOSE (test code = 2217) 95 MG/DL BUN (test code = 2208) 21 MG/DL CREATININE (test code = 2214) 0.87 MG/DL eGFR AMER. (test cod e = 90190) 87 ML/MIN/1.73 eGFR NON- AMER. (test code = 35045) 75 ML/MIN/1.73 CALC BUN/CREAT (test code = [...] ALT (test code = 2219) 8 U/L Deflino OrtaURIC [id number] 00:00:00* Test Item Value Reference Range Interpretation Comme [facility] URIC ACID (test code = 2233) 8.5 MG/DL Delfino OrtaVITAMIN [id number] 00:00:00* Test Item Value Reference Range Interpretation Comme [facility] VITAMIN B-12 (test code = 2840) 335 PG/ML Delfino OrtaCBC W/AUTO [id number] 00:00:00* Test Item Value Reference Range Interpretation [...] code = 1015) 212 K/UL Delfino OrtaLIPID [id number] 00:00:00* Test Item Value Reference Range Interpretation Comme nts CHOLESTEROL (test code = 2210) 141 MG/DL TRIGLYCERIDES (test code = 2232) 71 MG/DL HDL CHOLESTEROL (test code = 2220) 69 MG/DL CALC LDL CHOL (test code = 2237) 58 MG/DL RISK RATIO LDL/HDL (test cod e = 2238) 0.84 RATIO Delfino OrtaLIPID [id number] 00:00:00* Test Item Value Reference Range Interpretation Comme nts CHOLESTEROL (test code = 2210) 141 MG/DL TRIGLYCERIDES (test code = 2232) 71 MG/DL HDL CHOLESTEROL (test code = 2220) 69 MG/DL CALC LDL CHOL (test code = 2237) 58 MG/DL RISK RATIO LDL/HDL (test cod e = 2238) 0.84 RATIO Delfino OrtaCOMPREHENSIVE METABOLIC [id number] 00:00:00* Test Item Value Reference Range Interpretation Comme nts GLUCOSE (test code = 2217) 95 MG/DL BUN (test code = 2208) 21 MG/DL CREATININE (test code = 2214) 0.87 MG/DL eGFR AMER. (test cod e = 11633) 87 ML/MIN/1.73 eGFR NON- AMER. (test code = 89296) 75 ML/MIN/1.73 CALC BUN/CREAT (test code = [...] code = 2219) 8 U/L Delfino OrtaURIC [id number] 00:00:00* Test Item Value Reference Range Interpretation Comme nts URIC ACID (test code = 2233) 8.5 MG/DL Delfino OrtaVITAMIN [id number] 00:00:00* Test Item Value Reference Range Interpretation Comme nts VITAMIN B-12 (test code = 2840) 335 PG/ML Delfino OrtaCBC W/AUTO [id number] 00:00:00* Test Item Value Reference Range Interpretation [...] code = 1015) 212 K/UL Delfino OrtaLIPID [id number] 00:00:00* Test Item Value Reference Range Interpretation Comme nts CHOLESTEROL (test code = 2210) 141 MG/DL TRIGLYCERIDES (test code = 2232) 71 MG/DL HDL CHOLESTEROL (test code = 2220) 69 MG/DL CALC LDL CHOL (test code = 2237) 58 MG/DL RISK RATIO LDL/HDL (test cod e = 2238) 0.84 RATIO Delfino OrtaCOMPREHENSIVE METABOLIC [id number] 00:00:00* Test Item Value Reference Range Interpretation Comme nts GLUCOSE (test code = 2217) 95 MG/DL BUN (test code = 2208) 21 MG/DL CREATININE (test code = 2214) 0.87 MG/DL eGFR AMER. (test cod e = 27828) 87 ML/MIN/1.73 eGFR NON- AMER. (test code = 24934) 75 ML/MIN/1.73 CALC BUN/CREAT (test code = [...] code = 2219) 8 U/L Delfino OrtaURIC [id number] 00:00:00* Test Item Value Reference Range Interpretation Comme [facility] URIC ACID (test code = 2233) 8.5 MG/DL Delfino OrtaVITAMIN [id number] 00:00:00* Test Item Value Reference Range Interpretation Comme [facility] VITAMIN B-12 (test code = 2840) 335 PG/ML Delfino OrtaCOMPREHENSIVE METABOLIC [id number] 00:00:00* Test Item Value Reference Range Interpretation Comme nts GLUCOSE (test code = 2217) 95 MG/DL BUN (test code = 2208) 21 MG/DL CREATININE (test code = 2214) 0.87 MG/DL eGFR AMER. (test cod e = 94848) 87 ML/MIN/1.73 eGFR NON- AMER. (test code = 78305) 75 ML/MIN/1.73 CALC BUN/CREAT (test code = [...] = 2219) 8 U/L Delfino OrtaCBC W/AUTO [id number] 00:00:00* Test Item Value Reference Range Interpretation [...] code = 1015) 212 K/UL Delfino OrtaLIPID [id number] 00:00:00* Test Item Value Reference Range Interpretation Comme nts CHOLESTEROL (test code = 2210) 141 MG/DL TRIGLYCERIDES (test code = 2232) 71 MG/DL HDL CHOLESTEROL (test code = 2220) 69 MG/DL CALC LDL CHOL (test code = 2237) 58 MG/DL RISK RATIO LDL/HDL (test cod e = 2238) 0.84 RATIO Delfino OrtaCOMPREHENSIVE METABOLIC [id number] 00:00:00* Test Item Value Reference Range Interpretation Comme nts GLUCOSE (test code = 2217) 95 MG/DL BUN (test code = 2208) 21 MG/DL CREATININE (test code = 2214) 0.87 MG/DL eGFR AMER. (test cod e = 38220) 87 ML/MIN/1.73 eGFR NON- AMER. (test code = 50689) 75 ML/MIN/1.73 CALC BUN/CREAT (test code = [...] code = 2219) 8 U/L Delfino OrtaURIC [id number] 00:00:00* Test Item Value Reference Range Interpretation Comme [facility] URIC ACID (test code = 2233) 8.5 MG/DL Delfino OrtaVITAMIN [id number] 00:00:00* Test Item Value Reference Range Interpretation Comme [facility] VITAMIN B-12 (test code = 2840) 335 PG/ML Delfino OrtaCBC W/AUTO [id number] 00:00:00* Test Item Value Reference Range Interpretation [...] code = 1015) 212 K/UL Delfino OrtaLIPID [id number] 00:00:00* Test Item Value Reference Range Interpretation Comme nts CHOLESTEROL (test code = 2210) 141 MG/DL TRIGLYCERIDES (test code = 2232) 71 MG/DL HDL CHOLESTEROL (test code = 2220) 69 MG/DL CALC LDL CHOL (test code = 2237) 58 MG/DL RISK RATIO LDL/HDL (test cod e = 2238) 0.84 RATIO Delfino OrtaURIC [id number] 00:00:00* Test Item Value Reference Range Interpretation Comme nts URIC ACID (test code = 2233) 8.5 MG/DL Delfino OrtaCOMPREHENSIVE METABOLIC [id number] 00:00:00* Test Item Value Reference Range Interpretation Comme nts GLUCOSE (test code = 2217) 95 MG/DL BUN (test code = 2208) 21 MG/DL CREATININE (test code = 2214) 0.87 MG/DL eGFR AMER. (test cod e = 44699) 87 ML/MIN/1.73 eGFR NON- AMER. (test code = 12585) 75 ML/MIN/1.73 CALC BUN/CREAT (test code = [...] code = 2219) 8 U/L Delfino OrtaURIC [id number] 00:00:00* Test Item Value Reference Range Interpretation Comme [facility] URIC ACID (test code = 2233) 8.5 MG/DL Delfino OrtaVITAMIN [id number] 00:00:00* Test Item Value Reference Range Interpretation Comme [facility] VITAMIN B-12 (test code = 2840) 335 PG/ML Delfino OrtaCBC W/AUTO [id number] 00:00:00* Test Item Value Reference Range Interpretation [...] code = 1015) 212 K/UL Delfino OrtaVITAMIN [id number] 00:00:00* Test Item Value Reference Range Interpretation Comme nts VITAMIN B-12 (test code = 2840) 335 PG/ML Delfino OrtaLIPID [id number] 00:00:00* Test Item Value Reference Range Interpretation Comme nts CHOLESTEROL (test code = 2210) 141 MG/DL TRIGLYCERIDES (test code = 2232) 71 MG/DL HDL CHOLESTEROL (test code = 2220) 69 MG/DL CALC LDL CHOL (test code = 2237) 58 MG/DL RISK RATIO LDL/HDL (test cod e = 2238) 0.84 RATIO Delfino OrtaCOMPREHENSIVE METABOLIC [id number] 00:00:00* Test Item Value Reference Range Interpretation Comme nts GLUCOSE (test code = 2217) 95 MG/DL BUN (test code = 2208) 21 MG/DL CREATININE (test code = 2214) 0.87 MG/DL eGFR AMER. (test cod e = 03128) 87 ML/MIN/1.73 eGFR NON- AMER. (test code = 60035) 75 ML/MIN/1.73 CALC BUN/CREAT (test code = [...] code = 2219) 8 U/L Delfino OrtaURIC [id number] 00:00:00* Test Item Value Reference Range Interpretation Comme carlito URIC ACID (test code = 2233) 8.5 MG/DL Delfino OrtaVITAMIN [id number] 00:00:00* Test Item Value Reference Range Interpretation Comme [facility] VITAMIN B-12 (test code = 2840) 335 PG/ML Delfino OrtaCBC W/AUTO [id number] 00:00:00* Test Item Value Reference Range Interpretation [...] code = 1015) 212 K/UL Delfino OrtaLIPID [id number] 00:00:00* Test Item Value Reference Range Interpretation Comme nts CHOLESTEROL (test code = 2210) 141 MG/DL TRIGLYCERIDES (test code = 2232) 71 MG/DL HDL CHOLESTEROL (test code = 2220) 69 MG/DL CALC LDL CHOL (test code = 2237) 58 MG/DL RISK RATIO LDL/HDL (test cod e = 2238) 0.84 RATIO Delfino OrtaCOMPREHENSIVE METABOLIC [id number] 00:00:00* Test Item Value Reference Range Interpretation Comme nts GLUCOSE (test code = 2217) 95 MG/DL BUN (test code = 2208) 21 MG/DL CREATININE (test code = 2214) 0.87 MG/DL eGFR AMER. (test cod e = 40002) 87 ML/MIN/1.73 eGFR NON- AMER. (test code = 97934) 75 ML/MIN/1.73 CALC BUN/CREAT (test code = [...] code = 2219) 8 U/L Delfino OrtaURIC [id number] 00:00:00* Test Item Value Reference Range Interpretation Comme nts URIC ACID (test code = 2233) 8.5 MG/DL Delfino OrtaVITAMIN [id number] 00:00:00* Test Item Value Reference Range Interpretation Comme nts VITAMIN B-12 (test code = 2840) 335 PG/ML Delfino OrtaCBC W/AUTO [id number] 00:00:00* Test Item Value Reference Range Interpretation [...] code = 1015) 212 K/UL Delfino OrtaLIPID [id number] 00:00:00* Test Item Value Reference Range Interpretation Comme nts CHOLESTEROL (test code = 2210) 141 MG/DL TRIGLYCERIDES (test code = 2232) 71 MG/DL HDL CHOLESTEROL (test code = 2220) 69 MG/DL CALC LDL CHOL (test code = 2237) 58 MG/DL RISK RATIO LDL/HDL (test cod e = 2238) 0.84 RATIO Delfino OrtaCOMPREHENSIVE METABOLIC [id number] 00:00:00* Test Item Value Reference Range Interpretation Comme nts GLUCOSE (test code = 2217) 95 MG/DL BUN (test code = 2208) 21 MG/DL CREATININE (test code = 2214) 0.87 MG/DL eGFR AMER. (test cod e = 88519) 87 ML/MIN/1.73 eGFR NON- AMER. (test code = 04116) 75 ML/MIN/1.73 CALC BUN/CREAT (test code = [...] code = 2219) 8 U/L Delfino OrtaURIC [id number] 00:00:00* Test Item Value Reference Range Interpretation Comme [facility] URIC ACID (test code = 2233) 8.5 MG/DL Delfino OrtaVITAMIN [id number] 00:00:00* Test Item Value Reference Range Interpretation Comme car[facility]ito VITAMIN B-12 (test code = 2840) 335 PG/ML Delfino OrtaCBC W/AUTO [id number] 00:00:00* Test Item Value Reference Range Interpretation [...] code = 1015) 212 K/UL Delfino OrtaLIPID [id number] 00:00:00* Test Item Value Reference Range Interpretation Comme nts CHOLESTEROL (test code = 2210) 141 MG/DL TRIGLYCERIDES (test code = 2232) 71 MG/DL HDL CHOLESTEROL (test code = 2220) 69 MG/DL CALC LDL CHOL (test code = 2237) 58 MG/DL RISK RATIO LDL/HDL (test cod e = 2238) 0.84 RATIO Delfino OrtaCOMPREHENSIVE METABOLIC [id number] 00:00:00* Test Item Value Reference Range Interpretation Comme nts GLUCOSE (test code = 2217) 95 MG/DL BUN (test code = 2208) 21 MG/DL CREATININE (test code = 2214) 0.87 MG/DL eGFR AMER. (test cod e = 43570) 87 ML/MIN/1.73 eGFR NON- AMER. (test code = 02744) 75 ML/MIN/1.73 CALC BUN/CREAT (test code = [...] code = 2219) 8 U/L Delfino OrtaURIC [id number] 00:00:00* Test Item Value Reference Range Interpretation Comme [facility] URIC ACID (test code = 2233) 8.5 MG/DL Delfino OrtaVITAMIN [id number] 00:00:00* Test Item Value Reference Range Interpretation Comme [facility] VITAMIN B-12 (test code = 2840) 335 PG/ML Delfino OrtaCBC W/AUTO [id number] 00:00:00* Test Item Value Reference Range Interpretation [...] code = 1015) 212 K/UL Delfino OrtaLIPID [id number] 00:00:00* Test Item Value Reference Range Interpretation Comme nts CHOLESTEROL (test code = 2210) 141 MG/DL TRIGLYCERIDES (test code = 2232) 71 MG/DL HDL CHOLESTEROL (test code = 2220) 69 MG/DL CALC LDL CHOL (test code = 2237) 58 MG/DL RISK RATIO LDL/HDL (test cod e = 2238) 0.84 RATIO Delfino OrtaCOMPREHENSIVE METABOLIC [id number] 00:00:00* Test Item Value Reference Range Interpretation Comme nts GLUCOSE (test code = 2217) 95 MG/DL BUN (test code = 2208) 21 MG/DL CREATININE (test code = 2214) 0.87 MG/DL eGFR AMER. (test cod e = 39752) 87 ML/MIN/1.73 eGFR NON- AMER. (test code = 31729) 75 ML/MIN/1.73 CALC BUN/CREAT (test code = [...] code = 2219) 8 U/L Delfino OrtaURIC [id number] 00:00:00* Test Item Value Reference Range Interpretation Comme nts URIC ACID (test code = 2233) 8.5 MG/DL Delfino OrtaVITAMIN [id number] 00:00:00* Test Item Value Reference Range Interpretation Comme nts VITAMIN B-12 (test code = 2840) 335 PG/ML Delfino OrtaCBC W/AUTO [id number] 00:00:00* Test Item Value Reference Range Interpretation [...] code = 1015) 212 K/UL Delfino Schumacher [place] [id number] 00:00:00* Test Item Value Reference Range Interpretation Comme nts CHOLESTEROL (test code = 2210) 141 MG/DL TRIGLYCERIDES (test code = 2232) 71 MG/DL HDL CHOLESTEROL (test code = 2220) 69 MG/DL CALC LDL CHOL (test code = 2237) 58 MG/DL RISK RATIO LDL/HDL (test cod e = 2238) 0.84 RATIO Delfino OrtaCOMPREHENSIVE METABOLIC [id number] 00:00:00* Test Item Value Reference Range Interpretation Comme nts GLUCOSE (test code = 2217) 95 MG/DL BUN (test code = 2208) 21 MG/DL CREATININE (test code = 2214) 0.87 MG/DL eGFR AMER. (test cod e = 29886) 87 ML/MIN/1.73 eGFR NON- AMER. (test code = 43693) 75 ML/MIN/1.73 CALC BUN/CREAT (test code = [...] code = 2219) 8 U/L Delfino OrtaURIC [id number] 00:00:00* Test Item Value Reference Range Interpretation Comme nts URIC ACID (test code = 2233) 8.5 MG/DL Delfino OrtaVITAMIN [id number] 00:00:00* Test Item Value Reference Range Interpretation Comme nts VITAMIN B-12 (test code = 2840) 335 PG/ML Delfino OrtaCBC W/AUTO [id number] 00:00:00* Test Item Value Reference Range Interpretation [...] code = 1015) 212 K/UL Delfino OrtaLIPID [id number] 00:00:00* Test Item Value Reference Range Interpretation Comme nts CHOLESTEROL (test code = 2210) 141 MG/DL TRIGLYCERIDES (test code = 2232) 71 MG/DL HDL CHOLESTEROL (test code = 2220) 69 MG/DL CALC LDL CHOL (test code = 2237) 58 MG/DL RISK RATIO LDL/HDL (test cod e = 2238) 0.84 RATIO Delfino OrtaCOMPREHENSIVE METABOLIC [id number] 00:00:00* Test Item Value Reference Range Interpretation Comme nts GLUCOSE (test code = 2217) 95 MG/DL BUN (test code = 2208) 21 MG/DL CREATININE (test code = 2214) 0.87 MG/DL eGFR AMER. (test cod e = 88065) 87 ML/MIN/1.73 eGFR NON- AMER. (test code = 34166) 75 ML/MIN/1.73 CALC BUN/CREAT (test code = [...] code = 2219) 8 U/L Delfino OrtaURIC [id number] 00:00:00* Test Item Value Reference Range Interpretation Comme [facility] URIC ACID (test code = 2233) 8.5 MG/DL Delfino OrtaVITAMIN [id number] 00:00:00* Test Item Value Reference Range Interpretation Comme [facility] VITAMIN B-12 (test code = 2840) 335 PG/ML Delfino OrtaCBC W/AUTO [id number] 00:00:00* Test Item Value Reference Range Interpretation [...] code = 1015) 212 K/UL Delfino OrtaLIPID [id number] 00:00:00* Test Item Value Reference Range Interpretation Comme nts CHOLESTEROL (test code = 2210) 141 MG/DL TRIGLYCERIDES (test code = 2232) 71 MG/DL HDL CHOLESTEROL (test code = 2220) 69 MG/DL CALC LDL CHOL (test code = 2237) 58 MG/DL RISK RATIO LDL/HDL (test cod e = 2238) 0.84 RATIO Delfino OrtaCOMPREHENSIVE METABOLIC [id number] 00:00:00* Test Item Value Reference Range Interpretation Comme nts GLUCOSE (test code = 2217) 95 MG/DL BUN (test code = 2208) 21 MG/DL CREATININE (test code = 2214) 0.87 MG/DL eGFR AMER. (test cod e = 15501) 87 ML/MIN/1.73 eGFR NON- AMER. (test code = 51186) 75 ML/MIN/1.73 CALC BUN/CREAT (test code = [...] = 2219) 8 U/L Delfino Schumacher [place] [id number] 00:00:00* Test Item Value Reference Range Interpretation Comme nts URIC ACID (test code = 2233) 8.5 MG/DL Delfino F AustinVITAMIN [id number] 00:00:00* Test Item Value Reference Range Interpretation Comme nts VITAMIN B-12 (test code = 2840) 335 PG/ML Delfino rOtaCBC W/AUTO [id number] 00:00:00* Test Item Value Reference Range Interpretation [...] code = 1015) 212 K/UL Delfino OrtaLIPID [id number] 00:00:00* Test Item Value Reference Range Interpretation Comme nts CHOLESTEROL (test code = 2210) 141 MG/DL TRIGLYCERIDES (test code = 2232) 71 MG/DL HDL CHOLESTEROL (test code = 2220) 69 MG/DL CALC LDL CHOL (test code = 2237) 58 MG/DL RISK RATIO LDL/HDL (test cod e = 2238) 0.84 RATIO Delfino OrtaCOMPREHENSIVE METABOLIC [id number] 00:00:00* Test Item Value Reference Range Interpretation Comme nts GLUCOSE (test code = 2217) 95 MG/DL BUN (test code = 2208) 21 MG/DL CREATININE (test code = 2214) 0.87 MG/DL eGFR AMER. (test cod e = 56380) 87 ML/MIN/1.73 eGFR NON- AMER. (test code = 82788) 75 ML/MIN/1.73 CALC BUN/CREAT (test code = [...] code = 2219) 8 U/L Delfino OrtaURIC [id number] 00:00:00* Test Item Value Reference Range Interpretation Comme [facility] URIC ACID (test code = 2233) 8.5 MG/DL Delfino OrtaVITAMIN [id number] 00:00:00* Test Item Value Reference Range Interpretation Comme [facility] VITAMIN B-12 (test code = 2840) 335 PG/ML Delfino OrtaCBC W/AUTO [id number] 00:00:00* Test Item Value Reference Range Interpretation [...] code = 1015) 212 K/UL Delfino OrtaLIPID [id number] 00:00:00* Test Item Value Reference Range Interpretation Comme nts CHOLESTEROL (test code = 2210) 141 MG/DL TRIGLYCERIDES (test code = 2232) 71 MG/DL HDL CHOLESTEROL (test code = 2220) 69 MG/DL CALC LDL CHOL (test code = 2237) 58 MG/DL RISK RATIO LDL/HDL (test cod e = 2238) 0.84 RATIO Delfino OrtaCOMPREHENSIVE METABOLIC [id number] 00:00:00* Test Item Value Reference Range Interpretation Comme nts GLUCOSE (test code = 2217) 95 MG/DL BUN (test code = 2208) 21 MG/DL CREATININE (test code = 2214) 0.87 MG/DL eGFR AMER. (test cod e = 73728) 87 ML/MIN/1.73 eGFR NON- AMER. (test code = 94742) 75 ML/MIN/1.73 CALC BUN/CREAT (test code = [...] code = 2219) 8 U/L Delfino OrtaURIC [id number] 00:00:00* Test Item Value Reference Range Interpretation Comme nts URIC ACID (test code = 2233) 8.5 MG/DL Delfino OrtaVITAMIN [id number] 00:00:00* Test Item Value Reference Range Interpretation Comme [facility] VITAMIN B-12 (test code = 2840) 335 PG/ML Delfino OrtaCBC W/AUTO [id number] 00:00:00* Test Item Value Reference Range Interpretation [...] code = 1015) 212 K/UL Delfino [place]umacher [place] [id number] 00:00:00* Test Item Value Reference Range Interpretation Comme nts CHOLESTEROL (test code = 2210) 141 MG/DL TRIGLYCERIDES (test code = 2232) 71 MG/DL HDL CHOLESTEROL (test code = 2220) 69 MG/DL CALC LDL CHOL (test code = 2237) 58 MG/DL RISK RATIO LDL/HDL (test cod e = 2238) 0.84 RATIO Delfino OrtaCOMPREHENSIVE METABOLIC [id number] 00:00:00* Test Item Value Reference Range Interpretation Comme nts GLUCOSE (test code = 2217) 95 MG/DL BUN (test code = 2208) 21 MG/DL CREATININE (test code = 2214) 0.87 MG/DL eGFR AMER. (test cod e = 56204) 87 ML/MIN/1.73 eGFR NON- AMER. (test code = 08741) 75 ML/MIN/1.73 CALC BUN/CREAT (test code = [...] code = 2219) 8 U/L Delfino OrtaURIC [id number] 00:00:00* Test Item Value Reference Range Interpretation Comme nts URIC ACID (test code = 2233) 8.5 MG/DL Delfino OrtaVITAMIN [id number] 00:00:00* Test Item Value Reference Range Interpretation Comme [facility] VITAMIN B-12 (test code = 2840) 335 PG/ML Delfino OrtaCBC W/AUTO [id number] 00:00:00* Test Item Value Reference Range Interpretation [...] code = 1015) 212 K/UL Deflino OrtaLIPID [id number] 00:00:00* Test Item Value Reference Range Interpretation Comme nts CHOLESTEROL (test code = 2210) 141 MG/DL TRIGLYCERIDES (test code = 2232) 71 MG/DL HDL CHOLESTEROL (test code = 2220) 69 MG/DL CALC LDL CHOL (test code = 2237) 58 MG/DL RISK RATIO LDL/HDL (test cod e = 2238) 0.84 RATIO Delfino OrtaCOMPREHENSIVE METABOLIC [id number] 00:00:00* Test Item Value Reference Range Interpretation Comme nts GLUCOSE (test code = 2217) 95 MG/DL BUN (test code = 2208) 21 MG/DL CREATININE (test code = 2214) 0.87 MG/DL eGFR AMER. (test cod e = 53712) 87 ML/MIN/1.73 eGFR NON- AMER. (test code = 83844) 75 ML/MIN/1.73 CALC BUN/CREAT (test code = [...] code = 2219) 8 U/L Delfino OrtaURIC [id number] 00:00:00* Test Item Value Reference Range Interpretation Comme [facility] URIC ACID (test code = 2233) 8.5 MG/DL Delfino OrtaVITAMIN [id number] 00:00:00* Test Item Value Reference Range Interpretation Comme [facility] VITAMIN B-12 (test code = 2840) 335 PG/ML Delfino OrtaCBC W/AUTO [id number] 00:00:00* Test Item Value Reference Range Interpretation [...] code = 1015) 212 K/UL Delfino OrtaLIPID [id number] 00:00:00* Test Item Value Reference Range Interpretation Comme nts CHOLESTEROL (test code = 2210) 141 MG/DL TRIGLYCERIDES (test code = 2232) 71 MG/DL HDL CHOLESTEROL (test code = 2220) 69 MG/DL CALC LDL CHOL (test code = 2237) 58 MG/DL RISK RATIO LDL/HDL (test cod e = 2238) 0.84 RATIO Delfino OrtaCOMPREHENSIVE METABOLIC [id number] 00:00:00* Test Item Value Reference Range Interpretation Comme nts GLUCOSE (test code = 2217) 95 MG/DL BUN (test code = 2208) 21 MG/DL CREATININE (test code = 2214) 0.87 MG/DL eGFR AMER. (test cod e = 70817) 87 ML/MIN/1.73 eGFR NON- AMER. (test code = 67742) 75 ML/MIN/1.73 CALC BUN/CREAT (test code = [...] code = 2219) 8 U/L Delfino OrtaURIC [id number] 00:00:00* Test Item Value Reference Range Interpretation Comme nts URIC ACID (test code = 2233) 8.5 MG/DL Delfino OrtaVITAMIN [id number] 00:00:00* Test Item Value Reference Range Interpretation Comme nts VITAMIN B-12 (test code = 2840) 335 PG/ML Delfino OrtaCBC W/AUTO [id number] 00:00:00* Test Item Value Reference Range Interpretation [...] code = 1015) 212 K/UL Delfino OrtaLIPID [id number] 00:00:00* Test Item Value Reference Range Interpretation Comme nts CHOLESTEROL (test code = 2210) 141 MG/DL TRIGLYCERIDES (test code = 2232) 71 MG/DL HDL CHOLESTEROL (test code = 2220) 69 MG/DL CALC LDL CHOL (test code = 2237) 58 MG/DL RISK RATIO LDL/HDL (test cod e = 2238) 0.84 RATIO Delfino OrtaCOMPREHENSIVE METABOLIC [id number] 00:00:00* Test Item Value Reference Range Interpretation Comme nts GLUCOSE (test code = 2217) 95 MG/DL BUN (test code = 2208) 21 MG/DL CREATININE (test code = 2214) 0.87 MG/DL eGFR AMER. (test cod e = 49527) 87 ML/MIN/1.73 eGFR NON- AMER. (test code = 42232) 75 ML/MIN/1.73 CALC BUN/CREAT (test code = [...] code = 2219) 8 U/L Delfino OrtaURIC [id number] 00:00:00* Test Item Value Reference Range Interpretation Comme [facility] URIC ACID (test code = 2233) 8.5 MG/DL Delfino OrtaVITAMIN [id number] 00:00:00* Test Item Value Reference Range Interpretation Comme [facility] VITAMIN B-12 (test code = 2840) 335 PG/ML Delfino OrtaCBC W/AUTO [id number] 00:00:00* Test Item Value Reference Range Interpretation [...] code = 1015) 212 K/UL Delfino OrtaLIPID [id number] 00:00:00* Test Item Value Reference Range Interpretation Comme nts CHOLESTEROL (test code = 2210) 141 MG/DL TRIGLYCERIDES (test code = 2232) 71 MG/DL HDL CHOLESTEROL (test code = 2220) 69 MG/DL CALC LDL CHOL (test code = 2237) 58 MG/DL RISK RATIO LDL/HDL (test cod e = 2238) 0.84 RATIO Delfino OrtaCOMPREHENSIVE METABOLIC [id number] 00:00:00* Test Item Value Reference Range Interpretation Comme nts GLUCOSE (test code = 2217) 95 MG/DL BUN (test code = 2208) 21 MG/DL CREATININE (test code = 2214) 0.87 MG/DL eGFR AMER. (test cod e = 51818) 87 ML/MIN/1.73 eGFR NON- AMER. (test code = 18391) 75 ML/MIN/1.73 CALC BUN/CREAT (test code = [...] code = 2219) 8 U/L Delfino OrtaURIC [id number] 00:00:00* Test Item Value Reference Range Interpretation Comme [facility] URIC ACID (test code = 2233) 8.5 MG/DL Delfino OrtaVITAMIN [id number] 00:00:00* Test Item Value Reference Range Interpretation Comme [facility] VITAMIN B-12 (test code = 2840) 335 PG/ML Delfino OrtaCBC W/AUTO [id number] 00:00:00* Test Item Value Reference Range Interpretation [...] = 1015) 212 K/UL Delfino Schumacher [place] [id number] 00:00:00* Test Item Value Reference Range Interpretation Comme nts CHOLESTEROL (test code = 2210) 141 MG/DL TRIGLYCERIDES (test code = 2232) 71 MG/DL HDL CHOLESTEROL (test code = 2220) 69 MG/DL CALC LDL CHOL (test code = 2237) 58 MG/DL RISK RATIO LDL/HDL (test cod e = 2238) 0.84 RATIO Delfino OrtaCOMPREHENSIVE METABOLIC [id number] 00:00:00* Test Item Value Reference Range Interpretation Comme nts GLUCOSE (test code = 2217) 95 MG/DL BUN (test code = 2208) 21 MG/DL CREATININE (test code = 2214) 0.87 MG/DL eGFR AMER. (test cod e = 92255) 87 ML/MIN/1.73 eGFR NON- AMER. (test code = 93617) 75 ML/MIN/1.73 CALC BUN/CREAT (test code = [...] code = 2219) 8 U/L Delfino OrtaURIC [id number] 00:00:00* Test Item Value Reference Range Interpretation Comme [facility] URIC ACID (test code = 2233) 8.5 MG/DL Delfino OrtaVITAMIN [id number] 00:00:00* Test Item Value Reference Range Interpretation Comme [facility] VITAMIN B-12 (test code = 2840) 335 PG/ML Delfino OrtaCBC W/AUTO [id number] 00:00:00* Test Item Value Reference Range Interpretation [...] code = 1015) 212 K/UL Delfino OrtaLIPID [id number] 00:00:00* Test Item Value Reference Range Interpretation Comme nts CHOLESTEROL (test code = 2210) 141 MG/DL TRIGLYCERIDES (test code = 2232) 71 MG/DL HDL CHOLESTEROL (test code = 2220) 69 MG/DL CALC LDL CHOL (test code = 2237) 58 MG/DL RISK RATIO LDL/HDL (test cod e = 2238) 0.84 RATIO Delfino OrtaCOMPREHENSIVE METABOLIC [id number] 00:00:00* Test Item Value Reference Range Interpretation Comme [facility] GLUCOSE (test code = 2217) 95 MG/DL BUN (test code = 2208) 21 MG/DL CREATININE (test code = 2214) 0.87 MG/DL eGFR AMER. (test cod e = 29132) 87 ML/MIN/1.73 eGFR NON- AMER. (test code = 69839) 75 ML/MIN/1.73 CALC BUN/CREAT (test code = [...] code = 2219) 8 U/L Delfino OrtaURIC [id number] 00:00:00* Test Item Value Reference Range Interpretation Comme [facility] URIC ACID (test code = 2233) 8.5 MG/DL Delfino OrtaVITAMIN [id number] 00:00:00* Test Item Value Reference Range Interpretation Comme [facility] VITAMIN B-12 (test code = 2840) 335 PG/ML Delfino OrtaCBC W/AUTO [id number] 00:00:00* Test Item Value Reference Range Interpretation Comme [facility] WBC (test code = 1001) 2.9 [...] code = 1015) 212 K/UL Delfino OrtaLIPID [id number] 00:00:00* Test Item Value Reference Range Interpretation Comme nts CHOLESTEROL (test code = 2210) 141 MG/DL TRIGLYCERIDES (test code = 2232) 71 MG/DL HDL CHOLESTEROL (test code = 2220) 69 MG/DL CALC LDL CHOL (test code = 2237) 58 MG/DL RISK RATIO LDL/HDL (test cod e = 2238) 0.84 RATIO Delfino OrtaCOMPREHENSIVE METABOLIC [id number] 00:00:00* Test Item Value Reference Range Interpretation Comme nts GLUCOSE (test code = 2217) 95 MG/DL BUN (test code = 2208) 21 MG/DL CREATININE (test code = 2214) 0.87 MG/DL eGFR AMER. (test cod e = 25765) 87 ML/MIN/1.73 eGFR NON- AMER. (test code = 77068) 75 ML/MIN/1.73 CALC BUN/CREAT (test code = [...] code = 2219) 8 U/L Delfino OrtaURIC [id number] 00:00:00* Test Item Value Reference Range Interpretation Comme nts URIC ACID (test code = 2233) 8.5 MG/DL Delfino OrtaVITAMIN [id number] 00:00:00* Test Item Value Reference Range Interpretation Comme [facility] VITAMIN B-12 (test code = 2840) 335 PG/ML Delfino OrtaCBC W/AUTO [id number] 00:00:00* Test Item Value Reference Range Interpretation [...] code = 1015) 212 K/UL Delfino OrtaLIPID [id number] 00:00:00* Test Item Value Reference Range Interpretation Comme nts CHOLESTEROL (test code = 2210) 141 MG/DL TRIGLYCERIDES (test code = 2232) 71 MG/DL HDL CHOLESTEROL (test code = 2220) 69 MG/DL CALC LDL CHOL (test code = 2237) 58 MG/DL RISK RATIO LDL/HDL (test cod e = 2238) 0.84 RATIO Delfino OrtaCOMPREHENSIVE METABOLIC [id number] 00:00:00* Test Item Value Reference Range Interpretation Comme nts GLUCOSE (test code = 2217) 95 MG/DL BUN (test code = 2208) 21 MG/DL CREATININE (test code = 2214) 0.87 MG/DL eGFR AMER. (test cod e = 95010) 87 ML/MIN/1.73 eGFR NON- AMER. (test code = 38913) 75 ML/MIN/1.73 CALC BUN/CREAT (test code = [...] code = 2219) 8 U/L Delfino OrtaURIC [id number] 00:00:00* Test Item Value Reference Range Interpretation Comme [facility] URIC ACID (test code = 2233) 8.5 MG/DL Delfino OrtaVITAMIN [id number] 00:00:00* Test Item Value Reference Range Interpretation Comme [facility] VITAMIN B-12 (test code = 2840) 335 PG/ML Delfnio OrtaCBC W/AUTO [id number] 00:00:00* Test Item Value Reference Range Interpretation [...] code = 1015) 212 K/UL Delfino OrtaLIPID [id number] 00:00:00* Test Item Value Reference Range Interpretation Comme nts CHOLESTEROL (test code = 2210) 141 MG/DL TRIGLYCERIDES (test code = 2232) 71 MG/DL HDL CHOLESTEROL (test code = 2220) 69 MG/DL CALC LDL CHOL (test code = 2237) 58 MG/DL RISK RATIO LDL/HDL (test cod e = 2238) 0.84 RATIO Delfino OrtaCOMPREHENSIVE METABOLIC [id number] 00:00:00* Test Item Value Reference Range Interpretation Comme nts GLUCOSE (test code = 2217) 95 MG/DL BUN (test code = 2208) 21 MG/DL CREATININE (test code = 2214) 0.87 MG/DL eGFR AMER. (test cod e = 96812) 87 ML/MIN/1.73 eGFR NON- AMER. (test code = 70565) 75 ML/MIN/1.73 CALC BUN/CREAT (test code = [...] code = 2219) 8 U/L Delfino OrtaURIC [id number] 00:00:00* Test Item Value Reference Range Interpretation Comme [facility] URIC ACID (test code = 2233) 8.5 MG/DL Delfino OrtaVITAMIN [id number] 00:00:00* Test Item Value Reference Range Interpretation Comme [facility] VITAMIN B-12 (test code = 2840) 335 PG/ML Delfino OrtaCBC W/AUTO [id number] 00:00:00* Test Item Value Reference Range Interpretation [...] = 1015) 212 K/UL Delfino Schumacher YouLIPID [id number] 00:00:00* Test Item Value Reference Range Interpretation Comme nts CHOLESTEROL (test code = 2210) 141 MG/DL TRIGLYCERIDES (test code = 2232) 71 MG/DL HDL CHOLESTEROL (test code = 2220) 69 MG/DL CALC LDL CHOL (test code = 2237) 58 MG/DL RISK RATIO LDL/HDL (test cod e = 2238) 0.84 RATIO Delfino Schumacher YouCOMPREHENSIVE METABOLIC [id number] 00:00:00* Test Item Value Reference Range Interpretation Comme nts GLUCOSE (test code = 2217) 95 MG/DL BUN (test code = 2208) 21 MG/DL CREATININE (test code = 2214) 0.87 MG/DL eGFR AMER. (test cod e = 99404) 87 ML/MIN/1.73 eGFR NON- AMER. (test code = 79591) 75 ML/MIN/1.73 CALC BUN/CREAT (test code = [...] code = 2219) 8 U/L Delfino OrtaURIC [id number] 00:00:00* Test Item Value Reference Range Interpretation Comme [facility] URIC ACID (test code = 2233) 8.5 MG/DL Delfino OrtaVITAMIN [id number] 00:00:00* Test Item Value Reference Range Interpretation Comme [facility] VITAMIN B-12 (test code = 2840) 335 PG/ML Delfino OrtaCBC W/AUTO [id number] 00:00:00* Test Item Value Reference Range Interpretation [...] code = 1015) 212 K/UL Delfino OrtaLIPID [id number] 00:00:00* Test Item Value Reference Range Interpretation Comme nts CHOLESTEROL (test code = 2210) 141 MG/DL TRIGLYCERIDES (test code = 2232) 71 MG/DL HDL CHOLESTEROL (test code = 2220) 69 MG/DL CALC LDL CHOL (test code = 2237) 58 MG/DL RISK RATIO LDL/HDL (test cod e = 2238) 0.84 RATIO Delfino OrtaCOMPREHENSIVE METABOLIC [id number] 00:00:00* Test Item Value Reference Range Interpretation Comme nts GLUCOSE (test code = 2217) 95 MG/DL BUN (test code = 2208) 21 MG/DL CREATININE (test code = 2214) 0.87 MG/DL eGFR AMER. (test cod e = 98861) 87 ML/MIN/1.73 eGFR NON- AMER. (test code = 47960) 75 ML/MIN/1.73 CALC BUN/CREAT (test code = [...] code = 2219) 8 U/L Delfino OrtaURIC [id number] 00:00:00* Test Item Value Reference Range Interpretation Comme [facility] URIC ACID (test code = 2233) 8.5 MG/DL Delfino OrtaVITAMIN [id number] 00:00:00* Test Item Value Reference Range Interpretation Comme [facility] VITAMIN B-12 (test code = 2840) 335 PG/ML Delfino OrtaCBC W/AUTO [id number] 00:00:00* Test Item Value Reference Range Interpretation [...] code = 1015) 212 K/UL Delfino OrtaLIPID [id number] 00:00:00* Test Item Value Reference Range Interpretation Comme nts CHOLESTEROL (test code = 2210) 141 MG/DL TRIGLYCERIDES (test code = 2232) 71 MG/DL HDL CHOLESTEROL (test code = 2220) 69 MG/DL CALC LDL CHOL (test code = 2237) 58 MG/DL RISK RATIO LDL/HDL (test cod e = 2238) 0.84 RATIO Delfino OrtaCOMPREHENSIVE METABOLIC [id number] 00:00:00* Test Item Value Reference Range Interpretation Comme nts GLUCOSE (test code = 2217) 95 MG/DL BUN (test code = 2208) 21 MG/DL CREATININE (test code = 2214) 0.87 MG/DL eGFR AMER. (test cod e = 23935) 87 ML/MIN/1.73 eGFR NON- AMER. (test code = 90639) 75 ML/MIN/1.73 CALC BUN/CREAT (test code = [...] code = 2219) 8 U/L Delfino OrtaURIC [id number] 00:00:00* Test Item Value Reference Range Interpretation Comme nts URIC ACID (test code = 2233) 8.5 MG/DL Delfino OrtaVITAMIN [id number] 00:00:00* Test Item Value Reference Range Interpretation Comme nts VITAMIN B-12 (test code = 2840) 335 PG/ML Delfino OrtaCBC W/AUTO [id number] 00:00:00* Test Item Value Reference Range Interpretation [...] = 1015) 212 K/UL Delfino Schumacher AustinLIPID [id number] 00:00:00* Test Item Value Reference Range Interpretation Comme nts CHOLESTEROL (test code = 2210) 141 MG/DL TRIGLYCERIDES (test code = 2232) 71 MG/DL HDL CHOLESTEROL (test code = 2220) 69 MG/DL CALC LDL CHOL (test code = 2237) 58 MG/DL RISK RATIO LDL/HDL (test cod e = 2238) 0.84 RATIO Delfino Schumacher YouCOMPREHENSIVE METABOLIC [id number] 00:00:00* Test Item Value Reference Range Interpretation Comme nts GLUCOSE (test code = 2217) 95 MG/DL BUN (test code = 2208) 21 MG/DL CREATININE (test code = 2214) 0.87 MG/DL eGFR AMER. (test cod e = 52383) 87 ML/MIN/1.73 eGFR NON- AMER. (test code = 81671) 75 ML/MIN/1.73 CALC BUN/CREAT (test code = [...] code = 2219) 8 U/L Delfino OrtaURIC [id number] 00:00:00* Test Item Value Reference Range Interpretation Comme nts URIC ACID (test code = 2233) 8.5 MG/DL Delfino OrtaVITAMIN [id number] 00:00:00* Test Item Value Reference Range Interpretation Comme carlito VITAMIN B-12 (test code = 2840) 335 PG/ML Delfino OrtaCBC W/AUTO [id number] 00:00:00* Test Item Value Reference Range Interpretation [...] code = 1015) 212 K/UL Delfion OrtaLIPID [id number] 00:00:00* Test Item Value Reference Range Interpretation Comme nts CHOLESTEROL (test code = 2210) 141 MG/DL TRIGLYCERIDES (test code = 2232) 71 MG/DL HDL CHOLESTEROL (test code = 2220) 69 MG/DL CALC LDL CHOL (test code = 2237) 58 MG/DL RISK RATIO LDL/HDL (test cod e = 2238) 0.84 RATIO Delfino OrtaCOMPREHENSIVE METABOLIC [id number] 00:00:00* Test Item Value Reference Range Interpretation Comme nts GLUCOSE (test code = 2217) 95 MG/DL BUN (test code = 2208) 21 MG/DL CREATININE (test code = 2214) 0.87 MG/DL eGFR AMER. (test cod e = 11496) 87 ML/MIN/1.73 eGFR NON- AMER. (test code [...] code = 2219) 8 U/L Delfino OrtaURIC [id number] 00:00:00* Test Item Value Reference Range Interpretation Comme nts URIC ACID (test code = 2233) 8.5 MG/DL Delfino OrtaVITAMIN [id number] 00:00:00* Test Item Value Reference Range Interpretation Comme [facility] VITAMIN B-12 (test code = 2840) 335 PG/ML Delfino OrtaCBC W/AUTO [id number] 00:00:00* Test Item Value Reference Range Interpretation [...] code = 1015) 212 K/UL Delfino OrtaLIPID [id number] 00:00:00* Test Item Value Reference Range Interpretation Comme nts CHOLESTEROL (test code = 2210) 141 MG/DL TRIGLYCERIDES (test code = 2232) 71 MG/DL HDL CHOLESTEROL (test code = 2220) 69 MG/DL CALC LDL CHOL (test code = 2237) 58 MG/DL RISK RATIO LDL/HDL (test cod e = 2238) 0.84 RATIO Delfino OrtaCOMPREHENSIVE METABOLIC [id number] 00:00:00* Test Item Value Reference Range Interpretation Comme nts GLUCOSE (test code = 2217) 95 MG/DL BUN (test code = 2208) 21 MG/DL CREATININE (test code = 2214) 0.87 MG/DL eGFR AMER. (test cod e = 81716) 87 ML/MIN/1.73 eGFR NON- AMER. (test code = 85020) 75 ML/MIN/1.73 CALC BUN/CREAT (test code = [...] code = 2219) 8 U/L Delfino OrtaURIC [id number] 00:00:00* Test Item Value Reference Range Interpretation Comme nts URIC ACID (test code = 2233) 8.5 MG/DL Delfino OrtaVITAMIN [id number] 00:00:00* Test Item Value Reference Range Interpretation Comme carlito VITAMIN B-12 (test code = 2840) 335 PG/ML Delfino OrtaCBC W/AUTO [id number] 00:00:00* Test Item Value Reference Range Interpretation [...] code = 1015) 212 K/UL Delfino OrtaLIPID [id number] 00:00:00* Test Item Value Reference Range Interpretation Comme nts CHOLESTEROL (test code = 2210) 141 MG/DL TRIGLYCERIDES (test code = 2232) 71 MG/DL HDL CHOLESTEROL (test code = 2220) 69 MG/DL CALC LDL CHOL (test code = 2237) 58 MG/DL RISK RATIO LDL/HDL (test cod e = 2238) 0.84 RATIO Delfino OrtaCOMPREHENSIVE METABOLIC [id number] 00:00:00* Test Item Value Reference Range Interpretation Comme nts GLUCOSE (test code = 2217) 95 MG/DL BUN (test code = 2208) 21 MG/DL CREATININE (test code = 2214) 0.87 MG/DL eGFR AMER. (test cod e = 64151) 87 ML/MIN/1.73 eGFR NON- AMER. (test code = 25063) 75 ML/MIN/1.73 CALC BUN/CREAT (test code = [...] code = 2219) 8 U/L Delfino OrtaURIC [id number] 00:00:00* Test Item Value Reference Range Interpretation Comme carlito URIC ACID (test code = 2233) 8.5 MG/DL Delfino OrtaVITAMIN [id number] 00:00:00* Test Item Value Reference Range Interpretation Comme carlito VITAMIN B-12 (test code = 2840) 335 PG/ML Delfino OrtaCBC W/AUTO [id number] 00:00:00* Test Item Value Reference Range Interpretation [...] code = 1015) 212 K/UL Delfino OrtaLIPID [id number] 00:00:00* Test Item Value Reference Range Interpretation Comme nts CHOLESTEROL (test code = 2210) 141 MG/DL TRIGLYCERIDES (test code = 2232) 71 MG/DL HDL CHOLESTEROL (test code = 2220) 69 MG/DL CALC LDL CHOL (test code = 2237) 58 MG/DL RISK RATIO LDL/HDL (test cod e = 2238) 0.84 RATIO [facility] W/AUTO [id number] 00:00:00* Test Item Value Reference Range Interpretation [...] (test code = 1015) 212 K/UL LIPID [id number] 00:00:00* Test Item Value Reference Range Interpretation Comme nts CHOLESTEROL (test code = 2210) 141 MG/DL TRIGLYCERIDES (test code = 2232) 71 MG/DL HDL CHOLESTEROL (test code = 2220) 69 MG/DL CALC LDL CHOL (test code = 2237) 58 MG/DL RISK RATIO LDL/HDL (test cod e = 2238) 0.84 RATIO CD4/CD8 LYMPHOCYTE [id number] 00:00:00* Test Item Value Reference Range Interpretation Comme nts ABSOLUTE LYMPHOCYTES (test c ode = 88757) 807 PERUL PERCENT CD4 (test code = 64797) 13.1 % ABSOLUTE CD4 (test code = 83279) 105 PERUL PERCENT CD8 (test code = 92166) 61.6 % ABSOLUTE CD8 (test code = 89754) 497 PERUL CD4/CD8 RATIO (test code = 04313) 0.21 CD4/CD8 LYMPHOCYTE [id number] 00:00:00* Test Item Value Reference Range Interpretation Comme nts ABSOLUTE LYMPHOCYTES (test c ode = 89745) 807 PERUL PERCENT CD4 (test code = 86500) 13.1 % ABSOLUTE CD4 (test code = 48149) 105 PERUL PERCENT CD8 (test code = 23909) 61.6 % ABSOLUTE CD8 (test code = 45851) 497 PERUL CD4/CD8 RATIO (test code = 51453) 0.21 CD4/CD8 LYMPHOCYTE [id number] 00:00:00* Test Item Value Reference Range Interpretation Comme nts ABSOLUTE LYMPHOCYTES (test c ode = 35128) 807 PERUL PERCENT CD4 (test code = 98819) 13.1 % ABSOLUTE CD4 (test code = 44568) 105 PERUL PERCENT CD8 (test code = 12521) 61.6 % ABSOLUTE CD8 (test code = 94324) 497 PERUL CD4/CD8 RATIO (test code = 72906) 0.21 CD4/CD8 LYMPHOCYTE [id number] 00:00:00* Test Item Value Reference Range Interpretation Comme nts ABSOLUTE LYMPHOCYTES (test c ode = 21248) 807 PERUL PERCENT CD4 (test code = 42001) 13.1 % ABSOLUTE CD4 (test code = 97007) 105 PERUL PERCENT CD8 (test code = 39717) 61.6 % ABSOLUTE CD8 (test code = 70920) 497 PERUL CD4/CD8 RATIO (test code = 65061) 0.21 Delfino F AustinCD4/CD8 LYMPHOCYTE [id number] 00:00:00* Test Item Value Reference Range Interpretation Comme nts ABSOLUTE LYMPHOCYTES (test c ode = 51925) 807 PERUL PERCENT CD4 (test code = 88444) 13.1 % ABSOLUTE CD4 (test code = 66123) 105 PERUL PERCENT CD8 (test code = 15653) 61.6 % ABSOLUTE CD8 (test code = 71491) 497 PERUL CD4/CD8 RATIO (test code = 54405) 0.21 Delfino F AustinCD4/CD8 LYMPHOCYTE [id number] 00:00:00* Test Item Value Reference Range Interpretation Comme nts ABSOLUTE LYMPHOCYTES (test c ode = 69407) 807 PERUL PERCENT CD4 (test code = 55522) 13.1 % ABSOLUTE CD4 (test code = 75413) 105 PERUL PERCENT CD8 (test code = 69067) 61.6 % ABSOLUTE CD8 (test code = 37351) 497 PERUL CD4/CD8 RATIO (test code = 15028) 0.21 Delfino Schumacher AustinCD4/CD8 LYMPHOCYTE [id number] 00:00:00* Test Item Value Reference Range Interpretation Comme nts ABSOLUTE LYMPHOCYTES (test c ode = 41301) 807 PERUL PERCENT CD4 (test code = 78499) 13.1 % ABSOLUTE CD4 (test code = 11493) 105 PERUL PERCENT CD8 (test code = 59626) 61.6 % ABSOLUTE CD8 (test code = 69757) 497 PERUL CD4/CD8 RATIO (test code = 65600) 0.21 Delfino Schumacher AustinCD4/CD8 LYMPHOCYTE [id number] 00:00:00* Test Item Value Reference Range Interpretation Comme nts ABSOLUTE LYMPHOCYTES (test c ode = 38936) 807 PERUL PERCENT CD4 (test code = 70785) 13.1 % ABSOLUTE CD4 (test code = 42640) 105 PERUL PERCENT CD8 (test code = 63012) 61.6 % ABSOLUTE CD8 (test code = 05196) 497 PERUL CD4/CD8 RATIO (test code = 33822) 0.21 Delfino Schumacher AustinCD4/CD8 LYMPHOCYTE [id number] 00:00:00* Test Item Value Reference Range Interpretation Comme nts ABSOLUTE LYMPHOCYTES (test c ode = 47583) 807 PERUL PERCENT CD4 (test code = 05593) 13.1 % ABSOLUTE CD4 (test code = 06862) 105 PERUL PERCENT CD8 (test code = 42957) 61.6 % ABSOLUTE CD8 (test code = 37480) 497 PERUL CD4/CD8 RATIO (test code = 67326) 0.21 Delfino Schumacher AustinCD4/CD8 LYMPHOCYTE [id number] 00:00:00* Test Item Value Reference Range Interpretation Comme nts ABSOLUTE LYMPHOCYTES (test c ode = 15742) 807 PERUL PERCENT CD4 (test code = 32352) 13.1 % ABSOLUTE CD4 (test code = 67420) 105 PERUL PERCENT CD8 (test code = 33550) 61.6 % ABSOLUTE CD8 (test code = 86488) 497 PERUL CD4/CD8 RATIO (test code = 25742) 0.21 Delfino Schumacher AustinCD4/CD8 LYMPHOCYTE [id number] 00:00:00* Test Item Value Reference Range Interpretation Comme nts ABSOLUTE LYMPHOCYTES (test c ode = 58320) 807 PERUL PERCENT CD4 (test code = 93178) 13.1 % ABSOLUTE CD4 (test code = 22204) 105 PERUL PERCENT CD8 (test code = 83966) 61.6 % ABSOLUTE CD8 (test code = 14599) 497 PERUL CD4/CD8 RATIO (test code = 75217) 0.21 Delfino Schumacher AustinCD4/CD8 LYMPHOCYTE [id number] 00:00:00* Test Item Value Reference Range Interpretation Comme nts ABSOLUTE LYMPHOCYTES (test c ode = 34684) 807 PERUL PERCENT CD4 (test code = 27255) 13.1 % ABSOLUTE CD4 (test code = 60212) 105 PERUL PERCENT CD8 (test code = 43925) 61.6 % ABSOLUTE CD8 (test code = 93269) 497 PERUL CD4/CD8 RATIO (test code = 97922) 0.21 Delfino Schumacher AustinCD4/CD8 LYMPHOCYTE [id number] 00:00:00* Test Item Value Reference Range Interpretation Comme nts ABSOLUTE LYMPHOCYTES (test c ode = 41618) 807 PERUL PERCENT CD4 (test code = 72183) 13.1 % ABSOLUTE CD4 (test code = 43080) 105 PERUL PERCENT CD8 (test code = 42627) 61.6 % ABSOLUTE CD8 (test code = 73929) 497 PERUL CD4/CD8 RATIO (test code = 99990) 0.21 Delfino Schumacher AustinCD4/CD8 LYMPHOCYTE [id number] 00:00:00* Test Item Value Reference Range Interpretation Comme nts ABSOLUTE LYMPHOCYTES (test c ode = 04557) 807 PERUL PERCENT CD4 (test code = 94556) 13.1 % ABSOLUTE CD4 (test code = 11850) 105 PERUL PERCENT CD8 (test code = 81033) 61.6 % ABSOLUTE CD8 (test code = 27402) 497 PERUL CD4/CD8 RATIO (test code = 54758) 0.21 Delfino Schumacher AustinCD4/CD8 LYMPHOCYTE [id number] 00:00:00* Test Item Value Reference Range Interpretation Comme nts ABSOLUTE LYMPHOCYTES (test c ode = 75958) 807 PERUL PERCENT CD4 (test code = 72214) 13.1 % ABSOLUTE CD4 (test code = 48159) 105 PERUL PERCENT CD8 (test code = 28374) 61.6 % ABSOLUTE CD8 (test code = 19044) 497 PERUL CD4/CD8 RATIO (test code = 87847) 0.21 Delfino Schumacher AustinCD4/CD8 LYMPHOCYTE [id number] 00:00:00* Test Item Value Reference Range Interpretation Comme nts ABSOLUTE LYMPHOCYTES (test c ode = 78937) 807 PERUL PERCENT CD4 (test code = 95715) 13.1 % ABSOLUTE CD4 (test code = 40694) 105 PERUL PERCENT CD8 (test code = 65869) 61.6 % ABSOLUTE CD8 (test code = 65213) 497 PERUL CD4/CD8 RATIO (test code = 34559) 0.21 Delfino Schumacher AustinCD4/CD8 LYMPHOCYTE [id number] 00:00:00* Test Item Value Reference Range Interpretation Comme nts ABSOLUTE LYMPHOCYTES (test c ode = 66140) 807 PERUL PERCENT CD4 (test code = 34217) 13.1 % ABSOLUTE CD4 (test code = 57654) 105 PERUL PERCENT CD8 (test code = 00709) 61.6 % ABSOLUTE CD8 (test code = 89783) 497 PERUL CD4/CD8 RATIO (test code = 50683) 0.21 Delfino Schumacher AustinCD4/CD8 LYMPHOCYTE [id number] 00:00:00* Test Item Value Reference Range Interpretation Comme nts ABSOLUTE LYMPHOCYTES (test c ode = 60276) 807 PERUL PERCENT CD4 (test code = 63493) 13.1 % ABSOLUTE CD4 (test code = 48695) 105 PERUL PERCENT CD8 (test code = 68585) 61.6 % ABSOLUTE CD8 (test code = 04689) 497 PERUL CD4/CD8 RATIO (test code = 93588) 0.21 Delfino Schumacher AustinCD4/CD8 LYMPHOCYTE [id number] 00:00:00* Test Item Value Reference Range Interpretation Comme nts ABSOLUTE LYMPHOCYTES (test c ode = 63116) 807 PERUL PERCENT CD4 (test code = 36582) 13.1 % ABSOLUTE CD4 (test code = 72086) 105 PERUL PERCENT CD8 (test code = 47236) 61.6 % ABSOLUTE CD8 (test code = 99857) 497 PERUL CD4/CD8 RATIO (test code = 52725) 0.21 Delfino Schumacher AustinCD4/CD8 LYMPHOCYTE [id number] 00:00:00* Test Item Value Reference Range Interpretation Comme nts ABSOLUTE LYMPHOCYTES (test c ode = 63263) 807 PERUL PERCENT CD4 (test code = 15791) 13.1 % ABSOLUTE CD4 (test code = 40872) 105 PERUL PERCENT CD8 (test code = 20373) 61.6 % ABSOLUTE CD8 (test code = 73322) 497 PERUL CD4/CD8 RATIO (test code = 80896) 0.21 Delfino Schumacher AustinCD4/CD8 LYMPHOCYTE [id number] 00:00:00* Test Item Value Reference Range Interpretation Comme nts ABSOLUTE LYMPHOCYTES (test c ode = 15265) 807 PERUL PERCENT CD4 (test code = 02292) 13.1 % ABSOLUTE CD4 (test code = 68429) 105 PERUL PERCENT CD8 (test code = 22754) 61.6 % ABSOLUTE CD8 (test code = 53384) 497 PERUL CD4/CD8 RATIO (test code = 81539) 0.21 Delfino Schumacher AustinCD4/CD8 LYMPHOCYTE [id number] 00:00:00* Test Item Value Reference Range Interpretation Comme nts ABSOLUTE LYMPHOCYTES (test c ode = 36191) 807 PERUL PERCENT CD4 (test code = 87564) 13.1 % ABSOLUTE CD4 (test code = 78147) 105 PERUL PERCENT CD8 (test code = 53880) 61.6 % ABSOLUTE CD8 (test code = 95773) 497 PERUL CD4/CD8 RATIO (test code = 36862) 0.21 Delfino Schumacher AustinCD4/CD8 LYMPHOCYTE [id number] 00:00:00* Test Item Value Reference Range Interpretation Comme nts ABSOLUTE LYMPHOCYTES (test c ode = 72922) 807 PERUL PERCENT CD4 (test code = 26259) 13.1 % ABSOLUTE CD4 (test code = 82762) 105 PERUL PERCENT CD8 (test code = 11056) 61.6 % ABSOLUTE CD8 (test code = 26549) 497 PERUL CD4/CD8 RATIO (test code = 45975) 0.21 Delfino Schumacher AustinCD4/CD8 LYMPHOCYTE [id number] 00:00:00* Test Item Value Reference Range Interpretation Comme nts ABSOLUTE LYMPHOCYTES (test c ode = 51076) 807 PERUL PERCENT CD4 (test code = 70675) 13.1 % ABSOLUTE CD4 (test code = 78667) 105 PERUL PERCENT CD8 (test code = 03606) 61.6 % ABSOLUTE CD8 (test code = 27480) 497 PERUL CD4/CD8 RATIO (test code = 80502) 0.21 Delfino Schumacher AustinCD4/CD8 LYMPHOCYTE [id number] 00:00:00* Test Item Value Reference Range Interpretation Comme nts ABSOLUTE LYMPHOCYTES (test c ode = 06750) 807 PERUL PERCENT CD4 (test code = 32403) 13.1 % ABSOLUTE CD4 (test code = 05252) 105 PERUL PERCENT CD8 (test code = 51524) 61.6 % ABSOLUTE CD8 (test code = 71429) 497 PERUL CD4/CD8 RATIO (test code = 14172) 0.21 Delfino Schumacher AustinCD4/CD8 LYMPHOCYTE [id number] 00:00:00* Test Item Value Reference Range Interpretation Comme nts ABSOLUTE LYMPHOCYTES (test c ode = 72210) 807 PERUL PERCENT CD4 (test code = 48390) 13.1 % ABSOLUTE CD4 (test code = 26649) 105 PERUL PERCENT CD8 (test code = 94784) 61.6 % ABSOLUTE CD8 (test code = 93851) 497 PERUL CD4/CD8 RATIO (test code = 20636) 0.21 Delfino Schumacher AustinCD4/CD8 LYMPHOCYTE [id number] 00:00:00* Test Item Value Reference Range Interpretation Comme nts ABSOLUTE LYMPHOCYTES (test c ode = 37822) 807 PERUL PERCENT CD4 (test code = 87606) 13.1 % ABSOLUTE CD4 (test code = 00533) 105 PERUL PERCENT CD8 (test code = 68510) 61.6 % ABSOLUTE CD8 (test code = 31430) 497 PERUL CD4/CD8 RATIO (test code = 11300) 0.21 Delfino Schumacher AustinCD4/CD8 LYMPHOCYTE [id number] 00:00:00* Test Item Value Reference Range Interpretation Comme nts ABSOLUTE LYMPHOCYTES (test c ode = 61738) 807 PERUL PERCENT CD4 (test code = 10634) 13.1 % ABSOLUTE CD4 (test code = 76765) 105 PERUL PERCENT CD8 (test code = 88752) 61.6 % ABSOLUTE CD8 (test code = 29138) 497 PERUL CD4/CD8 RATIO (test code = 36267) 0.21 Delfino Schumacher AustinCD4/CD8 LYMPHOCYTE [id number] 00:00:00* Test Item Value Reference Range Interpretation Comme nts ABSOLUTE LYMPHOCYTES (test c ode = 07749) 807 PERUL PERCENT CD4 (test code = 62226) 13.1 % ABSOLUTE CD4 (test code = 13484) 105 PERUL PERCENT CD8 (test code = 70284) 61.6 % ABSOLUTE CD8 (test code = 05742) 497 PERUL CD4/CD8 RATIO (test code = 76511) 0.21 Delfino Schumacher AustinCD4/CD8 LYMPHOCYTE [id number] 00:00:00* Test Item Value Reference Range Interpretation Comme nts ABSOLUTE LYMPHOCYTES (test c ode = 78580) 807 PERUL PERCENT CD4 (test code = 80747) 13.1 % ABSOLUTE CD4 (test code = 30759) 105 PERUL PERCENT CD8 (test code = 59015) 61.6 % ABSOLUTE CD8 (test code = 05738) 497 PERUL CD4/CD8 RATIO (test code = 79319) 0.21 Delfino Schumacher AustinCD4/CD8 LYMPHOCYTE [id number] 00:00:00* Test Item Value Reference Range Interpretation Comme nts ABSOLUTE LYMPHOCYTES (test c ode = 25370) 807 PERUL PERCENT CD4 (test code = 34841) 13.1 % ABSOLUTE CD4 (test code = 15364) 105 PERUL PERCENT CD8 (test code = 43462) 61.6 % ABSOLUTE CD8 (test code = 47837) 497 PERUL CD4/CD8 RATIO (test code = 32514) 0.21 Delfino Schumacher AustinCD4/CD8 LYMPHOCYTE [id number] 00:00:00* Test Item Value Reference Range Interpretation Comme nts ABSOLUTE LYMPHOCYTES (test c ode = 54463) 807 PERUL PERCENT CD4 (test code = 68268) 13.1 % ABSOLUTE CD4 (test code = 30098) 105 PERUL PERCENT CD8 (test code = 87523) 61.6 % ABSOLUTE CD8 (test code = 88309) 497 PERUL CD4/CD8 RATIO (test code = 96109) 0.21 Delfino Schumacher AustinCD4/CD8 LYMPHOCYTE [id number] 00:00:00* Test Item Value Reference Range Interpretation Comme nts ABSOLUTE LYMPHOCYTES (test c ode = 06961) 807 PERUL PERCENT CD4 (test code = 61294) 13.1 % ABSOLUTE CD4 (test code = 18791) 105 PERUL PERCENT CD8 (test code = 92521) 61.6 % ABSOLUTE CD8 (test code = 42919) 497 PERUL CD4/CD8 RATIO (test code = 69314) 0.21 Delfino Schumacher AustinCD4/CD8 LYMPHOCYTE [id number] 00:00:00* Test Item Value Reference Range Interpretation Comme nts ABSOLUTE LYMPHOCYTES (test c ode = 29187) 807 PERUL PERCENT CD4 (test code = 22879) 13.1 % ABSOLUTE CD4 (test code = 14643) 105 PERUL PERCENT CD8 (test code = 65000) 61.6 % ABSOLUTE CD8 (test code = 17920) 497 PERUL CD4/CD8 RATIO (test code = 92426) 0.21 Delfino Schumacher AustinCD4/CD8 LYMPHOCYTE [id number] 00:00:00* Test Item Value Reference Range Interpretation Comme nts ABSOLUTE LYMPHOCYTES (test c ode = 02631) 807 PERUL PERCENT CD4 (test code = 16976) 13.1 % ABSOLUTE CD4 (test code = 08459) 105 PERUL PERCENT CD8 (test code = 85171) 61.6 % ABSOLUTE CD8 (test code = 75904) 497 PERUL CD4/CD8 RATIO (test code = 36324) 0.21 Delfino Schumacher AustinCD4/CD8 LYMPHOCYTE [id number] 00:00:00* Test Item Value Reference Range Interpretation Comme nts ABSOLUTE LYMPHOCYTES (test c ode = 16571) 807 PERUL PERCENT CD4 (test code = 72824) 13.1 % ABSOLUTE CD4 (test code = 08647) 105 PERUL PERCENT CD8 (test code = 56824) 61.6 % ABSOLUTE CD8 (test code = 82710) 497 PERUL CD4/CD8 RATIO (test code = 01236) 0.21 Delfino Schumacher AustinCD4/CD8 LYMPHOCYTE [id number] 00:00:00* Test Item Value Reference Range Interpretation Comme nts ABSOLUTE LYMPHOCYTES (test c ode = 75933) 807 PERUL PERCENT CD4 (test code = 73863) 13.1 % ABSOLUTE CD4 (test code = 25920) 105 PERUL PERCENT CD8 (test code = 47649) 61.6 % ABSOLUTE CD8 (test code = 16329) 497 PERUL CD4/CD8 RATIO (test code = 44050) 0.21 Delfino Schumacher AustinCD4/CD8 LYMPHOCYTE [id number] 00:00:00* Test Item Value Reference Range Interpretation Comme nts ABSOLUTE LYMPHOCYTES (test c ode = 12769) 807 PERUL PERCENT CD4 (test code = 47126) 13.1 % ABSOLUTE CD4 (test code = 24973) 105 PERUL PERCENT CD8 (test code = 36738) 61.6 % ABSOLUTE CD8 (test code = 50426) 497 PERUL CD4/CD8 RATIO (test code = 34545) 0.21 VITAMIN [id number] 00:00:00* Test Item Value Reference Range Interpretation Comme nts VITAMIN B-12 (test code = 2840) 358 PG/ML VITAMIN [id number] 00:00:00* Test Item Value Reference Range Interpretation Comme nts VITAMIN B-12 (test code = 2840) 358 PG/ML VITAMIN [id number] 00:00:00* Test Item Value Reference Range Interpretation Comme nts VITAMIN B-12 (test code = 2840) 358 PG/ML VITAMIN [id number] 00:00:00* Test Item Value Reference Range Interpretation Comme nts VITAMIN B-12 (test code = 2840) 358 PG/ML Delfino Schumacher AustinVITAMIN [id number] 00:00:00* Test Item Value Reference Range Interpretation Comme nts VITAMIN B-12 (test code = 2840) 358 PG/ML Delfino Schumacher AustinVITAMIN [id number] 00:00:00* Test Item Value Reference Range Interpretation Comme nts VITAMIN B-12 (test code = 2840) 358 PG/ML Delfino Schumacher AustinVITAMIN [id number] 00:00:00* Test Item Value Reference Range Interpretation Comme nts VITAMIN B-12 (test code = 2840) 358 PG/ML Delfino Schumacher [facility] [id number] 00:00:00* Test Item Value Reference Range Interpretation Comme nts VITAMIN B-12 (test code = 2840) 358 PG/ML Delfino Schumacher [facility] [id number] 00:00:00* Test Item Value Reference Range Interpretation Comme nts VITAMIN B-12 (test code = 2840) 358 PG/ML Delfino Schumacher [facility] [id number] 00:00:00* Test Item Value Reference Range Interpretation Comme nts VITAMIN B-12 (test code = 2840) 358 PG/ML Delfino Schumacher [facility] [id number] 00:00:00* Test Item Value Reference Range Interpretation Comme nts VITAMIN B-12 (test code = 2840) 358 PG/ML Delfino Schumacher [facility] [id number] 00:00:00* Test Item Value Reference Range Interpretation Comme nts VITAMIN B-12 (test code = 2840) 358 PG/ML Delfino Schumacher [facility] [id number] 00:00:00* Test Item Value Reference Range Interpretation Comme nts VITAMIN B-12 (test code = 2840) 358 PG/ML Delfino Schumacher [facility] [id number] 00:00:00* Test Item Value Reference Range Interpretation Comme nts VITAMIN B-12 (test code = 2840) 358 PG/ML Delfino Schumacher [facility] [id number] 00:00:00* Test Item Value Reference Range Interpretation Comme nts VITAMIN B-12 (test code = 2840) 358 PG/ML Delfino Schumacher [facility] [id number] 00:00:00* Test Item Value Reference Range Interpretation Comme nts VITAMIN B-12 (test code = 2840) 358 PG/ML Delfino Schumacher [facility] [id number] 00:00:00* Test Item Value Reference Range Interpretation Comme nts VITAMIN B-12 (test code = 2840) 358 PG/ML Delfino Schumacher [facility] [id number] 00:00:00* Test Item Value Reference Range Interpretation Comme nts VITAMIN B-12 (test code = 2840) 358 PG/ML Delfino Schumacher [facility] [id number] 00:00:00* Test Item Value Reference Range Interpretation Comme nts VITAMIN B-12 (test code = 2840) 358 PG/ML Delfino Schumacher [facility] [id number] 00:00:00* Test Item Value Reference Range Interpretation Comme nts VITAMIN B-12 (test code = 2840) 358 PG/ML Delfino Schumacher [facility] [id number] 00:00:00* Test Item Value Reference Range Interpretation Comme nts VITAMIN B-12 (test code = 2840) 358 PG/ML Delfino Schumacher [facility] [id number] 00:00:00* Test Item Value Reference Range Interpretation Comme nts VITAMIN B-12 (test code = 2840) 358 PG/ML Delfino Schumacher [facility] [id number] 00:00:00* Test Item Value Reference Range Interpretation Comme nts VITAMIN B-12 (test code = 2840) 358 PG/ML Delfino Schumacher [facility] [id number] 00:00:00* Test Item Value Reference Range Interpretation Comme nts VITAMIN B-12 (test code = 2840) 358 PG/ML Delfino Schumacher [facility] [id number] 00:00:00* Test Item Value Reference Range Interpretation Comme nts VITAMIN B-12 (test code = 2840) 358 PG/ML Delfino Schumacher [facility] [id number] 00:00:00* Test Item Value Reference Range Interpretation Comme nts VITAMIN B-12 (test code = 2840) 358 PG/ML Delfino Schumacher [facility] [id number] 00:00:00* Test Item Value Reference Range Interpretation Comme nts VITAMIN B-12 (test code = 2840) 358 PG/ML Delfino Schumacher [place]ITAMIN [id number] 00:00:00* Test Item Value Reference Range Interpretation Comme nts VITAMIN B-12 (test code = 2840) 358 PG/ML Delfino Schumacher [place] [id number] 00:00:00* Test Item Value Reference Range Interpretation Comme nts VITAMIN B-12 (test code = 2840) 358 PG/ML Delfino Schumacher [place] [id number] 00:00:00* Test Item Value Reference Range Interpretation Comme nts VITAMIN B-12 (test code = 2840) 358 PG/ML Delfino Schumacher [place] [id number] 00:00:00* Test Item Value Reference Range Interpretation Comme nts VITAMIN B-12 (test code = 2840) 358 PG/ML Delfino Schumacher [place] [id number] 00:00:00* Test Item Value Reference Range Interpretation Comme nts VITAMIN B-12 (test code = 2840) 358 PG/ML Delfino Schumacher [place] [id number] 00:00:00* Test Item Value Reference Range Interpretation Comme nts VITAMIN B-12 (test code = 2840) 358 PG/ML Delfino Schumacher [place] [id number] 00:00:00* Test Item Value Reference Range Interpretation Comme nts VITAMIN B-12 (test code = 2840) 358 PG/ML Delfino Schumacher [place] [id number] 00:00:00* Test Item Value Reference Range Interpretation Comme nts VITAMIN B-12 (test code = 2840) 358 PG/ML Delfino Schumacher [place] [id number] 00:00:00* Test Item Value Reference Range Interpretation Comme nts VITAMIN B-12 (test code = 2840) 358 PG/ML Delfino Schumacher [place] [id number] 00:00:00* Test Item Value Reference Range Interpretation Comme nts VITAMIN B-12 (test code = 2840) 358 PG/ML Delfino Schumacher [place] [id number] 00:00:00* Test Item Value Reference Range Interpretation Comme nts VITAMIN B-12 (test code = 2840) 358 PG/ML IRON BINDING CAPACITY AND IRON AND % SATURATION [ADDED]2018-09-09 00:00:00* Test Item Value Reference Range Interpretation Comme nts IRON, SERUM (test code = 2222) 32 UG/DL UNSATURATED IBC (test code = 97924) 326 UG/DL CALC TOTAL IBC (test code [...] 32 UG/DL UNSATURATED IBC (test code = 78862) 326 UG/DL CALC TOTAL IBC (test code [...] 32 UG/DL UNSATURATED IBC (test code = 85148) 326 UG/DL CALC TOTAL IBC (test code [...] 32 UG/DL UNSATURATED IBC (test code = 52165) 326 UG/DL CALC TOTAL IBC (test code [...] 32 UG/DL UNSATURATED IBC (test code = 87422) 326 UG/DL CALC TOTAL IBC (test code [...] 32 UG/DL UNSATURATED IBC (test code = 58345) 326 UG/DL CALC TOTAL IBC (test code [...] 32 UG/DL UNSATURATED IBC (test code = 40503) 326 UG/DL CALC TOTAL IBC (test code [...] 32 UG/DL UNSATURATED IBC (test code = 39064) 326 UG/DL CALC TOTAL IBC (test code [...] 32 UG/DL UNSATURATED IBC (test code = 43213) 326 UG/DL CALC TOTAL IBC (test code [...] 32 UG/DL UNSATURATED IBC (test code = 06602) 326 UG/DL CALC TOTAL IBC (test code [...] 32 UG/DL UNSATURATED IBC (test code = 77452) 326 UG/DL CALC TOTAL IBC (test code [...] 32 UG/DL UNSATURATED IBC (test code = 51881) 326 UG/DL CALC TOTAL IBC (test code [...] 32 UG/DL UNSATURATED IBC (test code = 02449) 326 UG/DL CALC TOTAL IBC (test code [...] 32 UG/DL UNSATURATED IBC (test code = 87561) 326 UG/DL CALC TOTAL IBC (test code [...] 32 UG/DL UNSATURATED IBC (test code = 05697) 326 UG/DL CALC TOTAL IBC (test code [...] 32 UG/DL UNSATURATED IBC (test code = 95215) 326 UG/DL CALC TOTAL IBC (test code [...] (test code = 1016) (NOTE) Delfino Schumacher YuoVITAMIN B 12 AND FOLIC ACID [ADDED]2018-09-09 00:00:00* [...] 32 UG/DL UNSATURATED IBC (test code = 63011) 326 UG/DL CALC TOTAL IBC (test code [...] 32 UG/DL UNSATURATED IBC (test code = 92462) 326 UG/DL CALC TOTAL IBC (test code [...] 32 UG/DL UNSATURATED IBC (test code = 51051) 326 UG/DL CALC TOTAL IBC (test code [...] 32 UG/DL UNSATURATED IBC (test code = 80151) 326 UG/DL CALC TOTAL IBC (test code [...] 32 UG/DL UNSATURATED IBC (test code = 61199) 326 UG/DL CALC TOTAL IBC (test code [...] 32 UG/DL UNSATURATED IBC (test code = 99423) 326 UG/DL CALC TOTAL IBC (test code [...] 32 UG/DL UNSATURATED IBC (test code = 04369) 326 UG/DL CALC TOTAL IBC (test code [...] 32 UG/DL UNSATURATED IBC (test code = 09915) 326 UG/DL CALC TOTAL IBC (test code [...] 32 UG/DL UNSATURATED IBC (test code = 16524) 326 UG/DL CALC TOTAL IBC (test code [...] 32 UG/DL UNSATURATED IBC (test code = 10748) 326 UG/DL CALC TOTAL IBC (test code [...] 32 UG/DL UNSATURATED IBC (test code = 74233) 326 UG/DL CALC TOTAL IBC (test code [...] 32 UG/DL UNSATURATED IBC (test code = 38713) 326 UG/DL CALC TOTAL IBC (test code [...] 32 UG/DL UNSATURATED IBC (test code = 45633) 326 UG/DL CALC TOTAL IBC (test code [...] 32 UG/DL UNSATURATED IBC (test code = 20857) 326 UG/DL CALC TOTAL IBC (test code [...] 32 UG/DL UNSATURATED IBC (test code = 10029) 326 UG/DL CALC TOTAL IBC (test code [...] 32 UG/DL UNSATURATED IBC (test code = 62178) 326 UG/DL CALC TOTAL IBC (test code [...] 32 UG/DL UNSATURATED IBC (test code = 72939) 326 UG/DL CALC TOTAL IBC (test code [...] 32 UG/DL UNSATURATED IBC (test code = 25125) 326 UG/DL CALC TOTAL IBC (test code [...] 32 UG/DL UNSATURATED IBC (test code = 72423) 326 UG/DL CALC TOTAL IBC (test code [...] 32 UG/DL UNSATURATED IBC (test code = 97242) 326 UG/DL CALC TOTAL IBC (test code = 2077) 358 UG/DL CALC % IRON SAT (test code = 2079) 9 % Delfino Schumacher YouFERRITIN [ADDED]2018-09-09 00:00:00* Test Item Value Reference Range Interpretation Comme nts FERRITIN (test code = 2075) 19 NG/ML Delfino Schumacher YouTRANSFERRIN [ADDED]2018-09-09 00:00:00* Test Item Value Reference Range Interpretation Comme nts TRANSFERRIN (test code = 4936) 298 MG/DL Delfino F YuoCBC W/AUTO DIFF WITH PLATELETS [ADDED]2018-09-09 00:00:00* Test [...] 32 UG/DL UNSATURATED IBC (test code = 41545) 326 UG/DL CALC TOTAL IBC (test code = 2077) 358 UG/DL CALC % IRON SAT (test code = 2079) 9 % Delfino OrtaFERRITIN [ADDED]2018-09-09 00:00:00* Test Item Value Reference Range Interpretation Comme nts FERRITIN (test code = 2075) 19 NG/ML Delfino OtraTRANSFERRIN [ADDED]2018-09-09 00:00:00* Test Item Value Reference Range [...] 32 UG/DL UNSATURATED IBC (test code = 96665) 326 UG/DL CALC TOTAL IBC (test code [...] code = 2695) 9.9 UG/L COMPREHENSIVE METABOLIC [id number] 00:00:00* Test Item Value Reference Range Interpretation Comme nts GLUCOSE (test code = 2217) 84 MG/DL BUN (test code = 2208) 12 MG/DL CREATININE (test code = 2214) 1.02 MG/DL eGFR AMER. (test cod e = 31518) 72 ML/MIN/1.73 eGFR NON- AMER. (test code = 52229) 62 ML/MIN/1.73 CALC BUN/CREAT (test code = [...] (test code = 2219) 9 U/L URIC [id number] 00:00:00* Test Item Value Reference Range Interpretation Comme nts URIC ACID (test code = 2233) 7.8 MG/DL CBC W/AUTO [id number] 00:00:00* Test Item Value Reference Range Interpretation [...] code = 1015) 230 K/UL COMPREHENSIVE METABOLIC [id number] 00:00:00* Test Item Value Reference Range Interpretation Comme nts GLUCOSE (test code = 2217) 84 MG/DL BUN (test code = 2208) 12 MG/DL CREATININE (test code = 2214) 1.02 MG/DL eGFR AMER. (test cod e = 07329) 72 ML/MIN/1.73 eGFR NON- AMER. (test code = 53066) 62 ML/MIN/1.73 CALC BUN/CREAT (test code = [...] (test code = 2219) 9 U/L URIC [id number] 00:00:00* Test Item Value Reference Range Interpretation Comme nts URIC ACID (test code = 2233) 7.8 MG/DL CBC W/AUTO [id number] 00:00:00* Test Item Value Reference Range Interpretation [...] code = 1015) 230 K/UL COMPREHENSIVE METABOLIC [id number] 00:00:00* Test Item Value Reference Range Interpretation Comme nts GLUCOSE (test code = 2217) 84 MG/DL BUN (test code = 2208) 12 MG/DL CREATININE (test code = 2214) 1.02 MG/DL eGFR AMER. (test cod e = 20512) 72 ML/MIN/1.73 eGFR NON- AMER. (test code = 55153) 62 ML/MIN/1.73 CALC BUN/CREAT (test code = [...] (test code = 2219) 9 U/L URIC [id number] 00:00:00* Test Item Value Reference Range Interpretation Comme nts URIC ACID (test code = 2233) 7.8 MG/DL CBC W/AUTO [id number] 00:00:00* Test Item Value Reference Range Interpretation [...] code = 1015) 230 K/UL COMPREHENSIVE METABOLIC [id number] 00:00:00* Test Item Value Reference Range Interpretation Comme nts GLUCOSE (test code = 2217) 84 MG/DL BUN (test code = 2208) 12 MG/DL CREATININE (test code = 2214) 1.02 MG/DL eGFR AMER. (test cod e = 39358) 72 ML/MIN/1.73 eGFR NON- AMER. (test code = 04402) 62 ML/MIN/1.73 CALC BUN/CREAT (test code = [...] code = 2219) 9 U/L CBC W/AUTO [id number] 00:00:00* Test Item Value Reference Range Interpretation [...] = 1015) 230 K/UL Delfino OrtaCOMPREHENSIVE METABOLIC [id number] 00:00:00* Test Item Value Reference Range Interpretation Comme nts GLUCOSE (test code = 2217) 84 MG/DL BUN (test code = 2208) 12 MG/DL CREATININE (test code = 2214) 1.02 MG/DL eGFR AMER. (test cod e = 14446) 72 ML/MIN/1.73 eGFR NON- AMER. (test code = 01723) 62 ML/MIN/1.73 CALC BUN/CREAT (test code = [...] = 2219) 9 U/L Delfino Schumacher YouURIC [id number] 00:00:00* Test Item Value Reference Range Interpretation Comme nts URIC ACID (test code = 2233) 7.8 MG/DL Delfino Schumacher YouCBC W/AUTO [id number] 00:00:00* Test Item Value Reference Range Interpretation [...] 1015) 230 K/UL Delfino F YouCOMPREHENSIVE METABOLIC [id number] 00:00:00* Test Item Value Reference Range Interpretation Comme nts GLUCOSE (test code = 2217) 84 MG/DL BUN (test code = 2208) 12 MG/DL CREATININE (test code = 2214) 1.02 MG/DL eGFR AMER. (test cod e = 37207) 72 ML/MIN/1.73 eGFR NON- AMER. (test code = 36770) 62 ML/MIN/1.73 CALC BUN/CREAT (test code = [...] = 2219) 9 U/L Delfino Schumacher [place] [id number] 00:00:00* Test Item Value Reference Range Interpretation Comme nts URIC ACID (test code = 2233) 7.8 MG/DL Delfino OrtaCBC W/AUTO [id number] 00:00:00* Test Item Value Reference Range Interpretation [...] = 1015) 230 K/UL Delfino Schumacher [place] [id number] 00:00:00* Test Item Value Reference Range Interpretation Comme nts URIC ACID (test code = 2233) 7.8 MG/DL Delfino OrtaCBC W/AUTO [id number] 00:00:00* Test Item Value Reference Range Interpretation [...] = 1015) 230 K/UL Delfino OrtaCOMPREHENSIVE METABOLIC [id number] 00:00:00* Test Item Value Reference Range Interpretation Comme nts GLUCOSE (test code = 2217) 84 MG/DL BUN (test code = 2208) 12 MG/DL CREATININE (test code = 2214) 1.02 MG/DL eGFR AMER. (test cod e = 87537) 72 ML/MIN/1.73 eGFR NON- AMER. (test code = 72001) 62 ML/MIN/1.73 CALC BUN/CREAT (test code = [...] code = 2219) 9 U/L Delfino OrtaURIC [id number] 00:00:00* Test Item Value Reference Range Interpretation Comme nts URIC ACID (test code = 2233) 7.8 MG/DL Delfino OrtaCBC W/AUTO [id number] 00:00:00* Test Item Value Reference Range Interpretation [...] = 1015) 230 K/UL Delfino OrtaCOMPREHENSIVE METABOLIC [id number] 00:00:00* Test Item Value Reference Range Interpretation Comme nts GLUCOSE (test code = 2217) 84 MG/DL BUN (test code = 2208) 12 MG/DL CREATININE (test code = 2214) 1.02 MG/DL eGFR AMER. (test cod e = 43593) 72 ML/MIN/1.73 eGFR NON- AMER. (test code = 00488) 62 ML/MIN/1.73 CALC BUN/CREAT (test code = [...] code = 2219) 9 U/L Delfino OrtaURIC [id number] 00:00:00* Test Item Value Reference Range Interpretation Comme nts URIC ACID (test code = 2233) 7.8 MG/DL Delfino OrtaCBC W/AUTO [id number] 00:00:00* Test Item Value Reference Range Interpretation [...] = 1015) 230 K/UL Delfino OrtaCOMPREHENSIVE METABOLIC [id number] 00:00:00* Test Item Value Reference Range Interpretation Comme nts GLUCOSE (test code = 2217) 84 MG/DL BUN (test code = 2208) 12 MG/DL CREATININE (test code = 2214) 1.02 MG/DL eGFR AMER. (test cod e = 02324) 72 ML/MIN/1.73 eGFR NON- AMER. (test code = 88227) 62 ML/MIN/1.73 CALC BUN/CREAT (test code = [...] = 2219) 9 U/L Delfino Schumacher YouURIC [id number] 00:00:00* Test Item Value Reference Range Interpretation Comme nts URIC ACID (test code = 2233) 7.8 MG/DL Delfino Schumacher YouCOMPREHENSIVE METABOLIC [id number] 00:00:00* Test Item Value Reference Range Interpretation Comme nts GLUCOSE (test code = 2217) 84 MG/DL BUN (test code = 2208) 12 MG/DL CREATININE (test code = 2214) 1.02 MG/DL eGFR AMER. (test cod e = 86586) 72 ML/MIN/1.73 eGFR NON- AMER. (test code = 46726) 62 ML/MIN/1.73 CALC BUN/CREAT (test code = [...] 2219) 9 U/L Delfino Schumacher YouCBC W/AUTO [id number] 00:00:00* Test Item Value Reference Range Interpretation [...] = 1015) 230 K/UL Delfino OrtaCOMPREHENSIVE METABOLIC [id number] 00:00:00* Test Item Value Reference Range Interpretation Comme nts GLUCOSE (test code = 2217) 84 MG/DL BUN (test code = 2208) 12 MG/DL CREATININE (test code = 2214) 1.02 MG/DL eGFR AMER. (test cod e = 40712) 72 ML/MIN/1.73 eGFR NON- AMER. (test code = 53694) 62 ML/MIN/1.73 CALC BUN/CREAT (test code = [...] code = 2219) 9 U/L Delfino OrtaURIC [id number] 00:00:00* Test Item Value Reference Range Interpretation Comme nts URIC ACID (test code = 2233) 7.8 MG/DL Deflino OrtaCBC W/AUTO [id number] 00:00:00* Test Item Value Reference Range Interpretation [...] = 1015) 230 K/UL Delfino OrtaCOMPREHENSIVE METABOLIC [id number] 00:00:00* Test Item Value Reference Range Interpretation Comme nts GLUCOSE (test code = 2217) 84 MG/DL BUN (test code = 2208) 12 MG/DL CREATININE (test code = 2214) 1.02 MG/DL eGFR AMER. (test cod e = 84163) 72 ML/MIN/1.73 eGFR NON- AMER. (test code = 24036) 62 ML/MIN/1.73 CALC BUN/CREAT (test code = [...] code = 2219) 9 U/L Delfino OrtaURIC [id number] 00:00:00* Test Item Value Reference Range Interpretation Comme nts URIC ACID (test code = 2233) 7.8 MG/DL Delfino OrtaCBC W/AUTO [id number] 00:00:00* Test Item Value Reference Range Interpretation [...] = 1015) 230 K/UL Delfino OrtaCOMPREHENSIVE METABOLIC [id number] 00:00:00* Test Item Value Reference Range Interpretation Comme nts GLUCOSE (test code = 2217) 84 MG/DL BUN (test code = 2208) 12 MG/DL CREATININE (test code = 2214) 1.02 MG/DL eGFR AMER. (test cod e = 74231) 72 ML/MIN/1.73 eGFR NON- AMER. (test code = 58820) 62 ML/MIN/1.73 CALC BUN/CREAT (test code = [...] code = 2219) 9 U/L Delfino OrtaURIC [id number] 00:00:00* Test Item Value Reference Range Interpretation Comme nts URIC ACID (test code = 2233) 7.8 MG/DL Delfino OrtaCBC W/AUTO [id number] 00:00:00* Test Item Value Reference Range Interpretation [...] = 1015) 230 K/UL Delfino OrtaCOMPREHENSIVE METABOLIC [id number] 00:00:00* Test Item Value Reference Range Interpretation Comme nts GLUCOSE (test code = 2217) 84 MG/DL BUN (test code = 2208) 12 MG/DL CREATININE (test code = 2214) 1.02 MG/DL eGFR AMER. (test cod e = 64114) 72 ML/MIN/1.73 eGFR NON- AMER. (test code = 51057) 62 ML/MIN/1.73 CALC BUN/CREAT (test code = [...] code = 2219) 9 U/L Delfino OrtaURIC [id number] 00:00:00* Test Item Value Reference Range Interpretation Comme nts URIC ACID (test code = 2233) 7.8 MG/DL Delfino Schumacher YouCBC W/AUTO [id number] 00:00:00* Test Item Value Reference Range Interpretation [...] 1015) 230 K/UL Delfino Schumacher YouCOMPREHENSIVE METABOLIC [id number] 00:00:00* Test Item Value Reference Range Interpretation Comme nts GLUCOSE (test code = 2217) 84 MG/DL BUN (test code = 2208) 12 MG/DL CREATININE (test code = 2214) 1.02 MG/DL eGFR AMER. (test cod e = 18890) 72 ML/MIN/1.73 eGFR NON- AMER. (test code = 63539) 62 ML/MIN/1.73 CALC BUN/CREAT (test code = [...] = 2219) 9 U/L Delfino F YouURIC [id number] 00:00:00* Test Item Value Reference Range Interpretation Comme nts URIC ACID (test code = 2233) 7.8 MG/DL Delfino Schumacher YouCBC W/AUTO [id number] 00:00:00* Test Item Value Reference Range Interpretation [...] 1015) 230 K/UL Delfino F YouCOMPREHENSIVE METABOLIC [id number] 00:00:00* Test Item Value Reference Range Interpretation Comme nts GLUCOSE (test code = 2217) 84 MG/DL BUN (test code = 2208) 12 MG/DL CREATININE (test code = 2214) 1.02 MG/DL eGFR AMER. (test cod e = 39148) 72 ML/MIN/1.73 eGFR NON- AMER. (test code = 89569) 62 ML/MIN/1.73 CALC BUN/CREAT (test code = [...] code = 2219) 9 U/L Delfino OrtaURIC [id number] 00:00:00* Test Item Value Reference Range Interpretation Comme nts URIC ACID (test code = 2233) 7.8 MG/DL Delfino OrtaC W/AUTO [id number] 00:00:00* Test Item Value Reference Range Interpretation [...] = 1015) 230 K/UL Delfino OrtaCOMPREHENSIVE METABOLIC [id number] 00:00:00* Test Item Value Reference Range Interpretation Comme nts GLUCOSE (test code = 2217) 84 MG/DL BUN (test code = 2208) 12 MG/DL CREATININE (test code = 2214) 1.02 MG/DL eGFR AMER. (test cod e = 89155) 72 ML/MIN/1.73 eGFR NON- AMER. (test code = 41818) 62 ML/MIN/1.73 CALC BUN/CREAT (test code = [...] code = 2219) 9 U/L Delfino OrtaURIC [id number] 00:00:00* Test Item Value Reference Range Interpretation Comme carlito URIC ACID (test code = 2233) 7.8 MG/DL Delfino OrtaCBC W/AUTO [id number] 00:00:00* Test Item Value Reference Range Interpretation [...] = 1015) 230 K/UL Delfino OrtaCOMPREHENSIVE METABOLIC [id number] 00:00:00* Test Item Value Reference Range Interpretation Comme nts GLUCOSE (test code = 2217) 84 MG/DL BUN (test code = 2208) 12 MG/DL CREATININE (test code = 2214) 1.02 MG/DL eGFR AMER. (test cod e = 86834) 72 ML/MIN/1.73 eGFR NON- AMER. (test code = 58906) 62 ML/MIN/1.73 CALC BUN/CREAT (test code = [...] code = 2219) 9 U/L Delfino OrtaURIC [id number] 00:00:00* Test Item Value Reference Range Interpretation Comme nts URIC ACID (test code = 2233) 7.8 MG/DL Delfino OrtaCBC W/AUTO [id number] 00:00:00* Test Item Value Reference Range Interpretation [...] = 1015) 230 K/UL Delfino OrtaCOMPREHENSIVE METABOLIC [id number] 00:00:00* Test Item Value Reference Range Interpretation Comme nts GLUCOSE (test code = 2217) 84 MG/DL BUN (test code = 2208) 12 MG/DL CREATININE (test code = 2214) 1.02 MG/DL eGFR AMER. (test cod e = 87684) 72 ML/MIN/1.73 eGFR NON- AMER. (test code = 21616) 62 ML/MIN/1.73 CALC BUN/CREAT (test code = [...] code = 2219) 9 U/L Delfino OrtaURIC [id number] 00:00:00* Test Item Value Reference Range Interpretation Comme nts URIC ACID (test code = 2233) 7.8 MG/DL Delfino OrtaCBC W/AUTO [id number] 00:00:00* Test Item Value Reference Range Interpretation [...] = 1015) 230 K/UL Delfino OrtaCOMPREHENSIVE METABOLIC [id number] 00:00:00* Test Item Value Reference Range Interpretation Comme nts GLUCOSE (test code = 2217) 84 MG/DL BUN (test code = 2208) 12 MG/DL CREATININE (test code = 2214) 1.02 MG/DL eGFR AMER. (test cod e = 28961) 72 ML/MIN/1.73 eGFR NON- AMER. (test code = 03632) 62 ML/MIN/1.73 CALC BUN/CREAT (test code = [...] code = 2219) 9 U/L Delfino OrtaURIC [id number] 00:00:00* Test Item Value Reference Range Interpretation Comme nts URIC ACID (test code = 2233) 7.8 MG/DL Delfino Schumacher YouCBC W/AUTO [id number] 00:00:00* Test Item Value Reference Range Interpretation [...] 1015) 230 K/UL Delfino Schumacher YouCOMPREHENSIVE METABOLIC [id number] 00:00:00* Test Item Value Reference Range Interpretation Comme nts GLUCOSE (test code = 2217) 84 MG/DL BUN (test code = 2208) 12 MG/DL CREATININE (test code = 2214) 1.02 MG/DL eGFR AMER. (test cod e = 95901) 72 ML/MIN/1.73 eGFR NON- AMER. (test code = 40024) 62 ML/MIN/1.73 CALC BUN/CREAT (test code = [...] code = 2219) 9 U/L Delfino OrtaURIC [id number] 00:00:00* Test Item Value Reference Range Interpretation Comme nts URIC ACID (test code = 2233) 7.8 MG/DL Delfino OrtaCBC W/AUTO [id number] 00:00:00* Test Item Value Reference Range Interpretation [...] = 1015) 230 K/UL Delfino OrtaCOMPREHENSIVE METABOLIC [id number] 00:00:00* Test Item Value Reference Range Interpretation Comme nts GLUCOSE (test code = 2217) 84 MG/DL BUN (test code = 2208) 12 MG/DL CREATININE (test code = 2214) 1.02 MG/DL eGFR AMER. (test cod e = 01374) 72 ML/MIN/1.73 eGFR NON- AMER. (test code = 91554) 62 ML/MIN/1.73 CALC BUN/CREAT (test code = [...] = 2219) 9 U/L Delfino Schumacher [place] [id number] 00:00:00* Test Item Value Reference Range Interpretation Comme nts URIC ACID (test code = 2233) 7.8 MG/DL Delfino OrtaCBC W/AUTO [id number] 00:00:00* Test Item Value Reference Range Interpretation [...] = 1015) 230 K/UL Delfino OrtaCOMPREHENSIVE METABOLIC [id number] 00:00:00* Test Item Value Reference Range Interpretation Comme nts GLUCOSE (test code = 2217) 84 MG/DL BUN (test code = 2208) 12 MG/DL CREATININE (test code = 2214) 1.02 MG/DL eGFR AMER. (test cod e = 82377) 72 ML/MIN/1.73 eGFR NON- AMER. (test code = 68616) 62 ML/MIN/1.73 CALC BUN/CREAT (test code = [...] code = 2219) 9 U/L Delfino OrtaURIC [id number] 00:00:00* Test Item Value Reference Range Interpretation Comme nts URIC ACID (test code = 2233) 7.8 MG/DL Delfino Schumacher YouCBC W/AUTO [id number] 00:00:00* Test Item Value Reference Range Interpretation [...] 1015) 230 K/UL Delfino Schumacher YouCOMPREHENSIVE METABOLIC [id number] 00:00:00* Test Item Value Reference Range Interpretation Comme nts GLUCOSE (test code = 2217) 84 MG/DL BUN (test code = 2208) 12 MG/DL CREATININE (test code = 2214) 1.02 MG/DL eGFR AMER. (test cod e = 56420) 72 ML/MIN/1.73 eGFR NON- AMER. (test code = 80414) 62 ML/MIN/1.73 CALC BUN/CREAT (test code = [...] code = 2219) 9 U/L Delfino OrtaURIC [id number] 00:00:00* Test Item Value Reference Range Interpretation Comme nts URIC ACID (test code = 2233) 7.8 MG/DL Delfino OrtaCBC W/AUTO [id number] 00:00:00* Test Item Value Reference Range Interpretation [...] = 1015) 230 K/UL Delfino OrtaCOMPREHENSIVE METABOLIC [id number] 00:00:00* Test Item Value Reference Range Interpretation Comme nts GLUCOSE (test code = 2217) 84 MG/DL BUN (test code = 2208) 12 MG/DL CREATININE (test code = 2214) 1.02 MG/DL eGFR AMER. (test cod e = 15556) 72 ML/MIN/1.73 eGFR NON- AMER. (test code = 88353) 62 ML/MIN/1.73 CALC BUN/CREAT (test code = [...] code = 2219) 9 U/L Delfino [place]umacher [place] [id number] 00:00:00* Test Item Value Reference Range Interpretation Comme nts URIC ACID (test code = 2233) 7.8 MG/DL [facility] W/AUTO [id number] 00:00:00* Test Item Value Reference Range Interpretation [...] = 1015) 230 K/UL Delfino OrtaCOMPREHENSIVE METABOLIC [id number] 00:00:00* Test Item Value Reference Range Interpretation Comme nts GLUCOSE (test code = 2217) 84 MG/DL BUN (test code = 2208) 12 MG/DL CREATININE (test code = 2214) 1.02 MG/DL eGFR AMER. (test cod e = 17947) 72 ML/MIN/1.73 eGFR NON- AMER. (test code = 13624) 62 ML/MIN/1.73 CALC BUN/CREAT (test code = [...] code = 2219) 9 U/L Delfino OrtaURIC [id number] 00:00:00* Test Item Value Reference Range Interpretation Comme nts URIC ACID (test code = 2233) 7.8 MG/DL Delfino OrtaCBC W/AUTO [id number] 00:00:00* Test Item Value Reference Range Interpretation [...] = 1015) 230 K/UL Delfino OrtaCOMPREHENSIVE METABOLIC [id number] 00:00:00* Test Item Value Reference Range Interpretation Comme nts GLUCOSE (test code = 2217) 84 MG/DL BUN (test code = 2208) 12 MG/DL CREATININE (test code = 2214) 1.02 MG/DL eGFR AMER. (test cod e = 23319) 72 ML/MIN/1.73 eGFR NON- AMER. (test code = 81579) 62 ML/MIN/1.73 CALC BUN/CREAT (test code = [...] code = 2219) 9 U/L Delfino OrtaURIC [id number] 00:00:00* Test Item Value Reference Range Interpretation Comme nts URIC ACID (test code = 2233) 7.8 MG/DL Delfino OrtaCBC W/AUTO [id number] 00:00:00* Test Item Value Reference Range Interpretation [...] = 1015) 230 K/UL Delfino OrtaCOMPREHENSIVE METABOLIC [id number] 00:00:00* Test Item Value Reference Range Interpretation Comme nts GLUCOSE (test code = 2217) 84 MG/DL BUN (test code = 2208) 12 MG/DL CREATININE (test code = 2214) 1.02 MG/DL eGFR AMER. (test cod e = 57231) 72 ML/MIN/1.73 eGFR NON- AMER. (test code = 05087) 62 ML/MIN/1.73 CALC BUN/CREAT (test code = [...] code = 2219) 9 U/L Delfino OrtaURIC [id number] 00:00:00* Test Item Value Reference Range Interpretation Comme nts URIC ACID (test code = 2233) 7.8 MG/DL Delfino OrtaCBC W/AUTO [id number] 00:00:00* Test Item Value Reference Range Interpretation [...] = 1015) 230 K/UL Delfino OrtaCOMPREHENSIVE METABOLIC [id number] 00:00:00* Test Item Value Reference Range Interpretation Comme nts GLUCOSE (test code = 2217) 84 MG/DL BUN (test code = 2208) 12 MG/DL CREATININE (test code = 2214) 1.02 MG/DL eGFR AMER. (test cod e = 67119) 72 ML/MIN/1.73 eGFR NON- AMER. (test code = 70022) 62 ML/MIN/1.73 CALC BUN/CREAT (test code = [...] code = 2219) 9 U/L Delfino OrtaURIC [id number] 00:00:00* Test Item Value Reference Range Interpretation Comme nts URIC ACID (test code = 2233) 7.8 MG/DL Delfino OrtaCBC W/AUTO [id number] 00:00:00* Test Item Value Reference Range Interpretation [...] 1015) 230 K/UL Delfino Schumacher YouCOMPREHENSIVE METABOLIC [id number] 00:00:00* Test Item Value Reference Range Interpretation Comme nts GLUCOSE (test code = 2217) 84 MG/DL BUN (test code = 2208) 12 MG/DL CREATININE (test code = 2214) 1.02 MG/DL eGFR AMER. (test cod e = 50435) 72 ML/MIN/1.73 eGFR NON- AMER. (test code = 82131) 62 ML/MIN/1.73 CALC BUN/CREAT (test code = [...] code = 2219) 9 U/L Delfino OrtaURIC [id number] 00:00:00* Test Item Value Reference Range Interpretation Comme nts URIC ACID (test code = 2233) 7.8 MG/DL Delfino OrtaCBC W/AUTO [id number] 00:00:00* Test Item Value Reference Range Interpretation [...] = 1015) 230 K/UL Delfino OrtaCOMPREHENSIVE METABOLIC [id number] 00:00:00* Test Item Value Reference Range Interpretation Comme nts GLUCOSE (test code = 2217) 84 MG/DL BUN (test code = 2208) 12 MG/DL CREATININE (test code = 2214) 1.02 MG/DL eGFR AMER. (test cod e = 98402) 72 ML/MIN/1.73 eGFR NON- AMER. (test code = 00637) 62 ML/MIN/1.73 CALC BUN/CREAT (test code = [...] code = 2219) 9 U/L Delfino OrtaURIC [id number] 00:00:00* Test Item Value Reference Range Interpretation Comme nts URIC ACID (test code = 2233) 7.8 MG/DL Delfino OrtaCBC W/AUTO [id number] 00:00:00* Test Item Value Reference Range Interpretation [...] = 1015) 230 K/UL Delfino OrtaCOMPREHENSIVE METABOLIC [id number] 00:00:00* Test Item Value Reference Range Interpretation Comme nts GLUCOSE (test code = 2217) 84 MG/DL BUN (test code = 2208) 12 MG/DL CREATININE (test code = 2214) 1.02 MG/DL eGFR AMER. (test cod e = 21736) 72 ML/MIN/1.73 eGFR NON- AMER. (test code = 04433) 62 ML/MIN/1.73 CALC BUN/CREAT (test code = [...] code = 2219) 9 U/L Delfino OrtaURIC [id number] 00:00:00* Test Item Value Reference Range Interpretation Comme nts URIC ACID (test code = 2233) 7.8 MG/DL Delfino OrtaCBC W/AUTO [id number] 00:00:00* Test Item Value Reference Range Interpretation [...] = 1015) 230 K/UL Delfino OrtaCOMPREHENSIVE METABOLIC [id number] 00:00:00* Test Item Value Reference Range Interpretation Comme nts GLUCOSE (test code = 2217) 84 MG/DL BUN (test code = 2208) 12 MG/DL CREATININE (test code = 2214) 1.02 MG/DL eGFR AMER. (test cod e = 25918) 72 ML/MIN/1.73 eGFR NON- AMER. (test code = 29072) 62 ML/MIN/1.73 CALC BUN/CREAT (test code = [...] code = 2219) 9 U/L Delfino OrtaURIC [id number] 00:00:00* Test Item Value Reference Range Interpretation Comme nts URIC ACID (test code = 2233) 7.8 MG/DL Delfino OrtaCBC W/AUTO [id number] 00:00:00* Test Item Value Reference Range Interpretation [...] = 1015) 230 K/UL Delfino OrtaCOMPREHENSIVE METABOLIC [id number] 00:00:00* Test Item Value Reference Range Interpretation Comme nts GLUCOSE (test code = 2217) 84 MG/DL BUN (test code = 2208) 12 MG/DL CREATININE (test code = 2214) 1.02 MG/DL eGFR AMER. (test cod e = 09446) 72 ML/MIN/1.73 eGFR NON- AMER. (test code = 73115) 62 ML/MIN/1.73 CALC BUN/CREAT (test code = [...] = 2219) 9 U/L Delfino Schumacher YouURIC [id number] 00:00:00* Test Item Value Reference Range Interpretation Comme nts URIC ACID (test code = 2233) 7.8 MG/DL Delfino OrtaCBC W/AUTO [id number] 00:00:00* Test Item Value Reference Range Interpretation [...] = 1015) 230 K/UL Delfino OrtaCOMPREHENSIVE METABOLIC [id number] 00:00:00* Test Item Value Reference Range Interpretation Comme nts GLUCOSE (test code = 2217) 84 MG/DL BUN (test code = 2208) 12 MG/DL CREATININE (test code = 2214) 1.02 MG/DL eGFR AMER. (test cod e = 82943) 72 ML/MIN/1.73 eGFR NON- AMER. (test code = 44495) 62 ML/MIN/1.73 CALC BUN/CREAT (test code = [...] code = 2219) 9 U/L Delfino OrtaURIC [id number] 00:00:00* Test Item Value Reference Range Interpretation Comme nts URIC ACID (test code = 2233) 7.8 MG/DL Delfino OrtaCBC W/AUTO [id number] 00:00:00* Test Item Value Reference Range Interpretation [...] = 1015) 230 K/UL Delfino OrtaCOMPREHENSIVE METABOLIC [id number] 00:00:00* Test Item Value Reference Range Interpretation Comme nts GLUCOSE (test code = 2217) 84 MG/DL BUN (test code = 2208) 12 MG/DL CREATININE (test code = 2214) 1.02 MG/DL eGFR AMER. (test cod e = 96184) 72 ML/MIN/1.73 eGFR NON- AMER. (test code = 16004) 62 ML/MIN/1.73 CALC BUN/CREAT (test code = [...] code = 2219) 9 U/L Delfino OrtaURIC [id number] 00:00:00* Test Item Value Reference Range Interpretation Comme nts URIC ACID (test code = 2233) 7.8 MG/DL Delfino Schumacher YouCBC W/AUTO [id number] 00:00:00* Test Item Value Reference Range Interpretation [...] 1015) 230 K/UL Delfino Endy YouCOMPREHENSIVE METABOLIC [id number] 00:00:00* Test Item Value Reference Range Interpretation Comme nts GLUCOSE (test code = 2217) 84 MG/DL BUN (test code = 2208) 12 MG/DL CREATININE (test code = 2214) 1.02 MG/DL eGFR AMER. (test cod e = 46890) 72 ML/MIN/1.73 eGFR NON- AMER. (test code = 69859) 62 ML/MIN/1.73 CALC BUN/CREAT (test code = [...] = 2219) 9 U/L Delfino Endy YouURIC [id number] 00:00:00* Test Item Value Reference Range Interpretation Comme nts URIC ACID (test code = 2233) 7.8 MG/DL Delfino OrtaCBC W/AUTO [id number] 00:00:00* Test Item Value Reference Range Interpretation [...] = 1015) 230 K/UL Delfino OrtaCOMPREHENSIVE METABOLIC [id number] 00:00:00* Test Item Value Reference Range Interpretation Comme nts GLUCOSE (test code = 2217) 84 MG/DL BUN (test code = 2208) 12 MG/DL CREATININE (test code = 2214) 1.02 MG/DL eGFR AMER. (test cod e = 79368) 72 ML/MIN/1.73 eGFR NON- AMER. (test code = 48458) 62 ML/MIN/1.73 CALC BUN/CREAT (test code = [...] code = 2219) 9 U/L Delfino OrtaURIC [id number] 00:00:00* Test Item Value Reference Range Interpretation Comme nts URIC ACID (test code = 2233) 7.8 MG/DL Delfino Schumacher AustinURIC [id number] 00:00:00* Test Item Value Reference Range Interpretation Comme nts URIC ACID (test code = 2233) 7.8 MG/DL CBC W/AUTO [id number] 00:00:00* Test Item Value Reference Range Interpretation [...] code = 1015) 230 K/UL COMPREHENSIVE METABOLIC [id number] 00:00:00* Test Item Value Reference Range Interpretation Comme nts GLUCOSE (test code = 2217) 93 MG/DL BUN (test code = 2208) 20 MG/DL CREATININE (test code = 2214) 1.18 MG/DL eGFR AMER. (test cod e = 78880) 61 ML/MIN/1.73 eGFR NON- AMER. (test code = 63897) 52 ML/MIN/1.73 CALC BUN/CREAT (test code = [...] code = 2219) 15 U/L CBC W/AUTO [id number] 00:00:00* Test Item Value Reference Range Interpretation [...] (test code = 1015) 317 K/UL LIPID [id number] 00:00:00* Test Item Value Reference Range Interpretation Comme nts CHOLESTEROL (test code = 2210) 215 MG/DL TRIGLYCERIDES (test code = 2232) 61 MG/DL HDL CHOLESTEROL (test code = 2220) 93 MG/DL CALC LDL CHOL (test code = 2237) 110 MG/DL RISK RATIO LDL/HDL (test cod e = 2238) 1.18 RATIO COMPREHENSIVE METABOLIC [id number] 00:00:00* Test Item Value Reference Range Interpretation Comme nts GLUCOSE (test code = 2217) 93 MG/DL BUN (test code = 2208) 20 MG/DL CREATININE (test code = 2214) 1.18 MG/DL eGFR AMER. (test cod e = 33457) 61 ML/MIN/1.73 eGFR NON- AMER. (test code = 97500) 52 ML/MIN/1.73 CALC BUN/CREAT (test code = [...] code = 2219) 15 U/L CBC W/AUTO [id number] 00:00:00* Test Item Value Reference Range Interpretation [...] (test code = 1015) 317 K/UL LIPID [id number] 00:00:00* Test Item Value Reference Range Interpretation Comme nts CHOLESTEROL (test code = 2210) 215 MG/DL TRIGLYCERIDES (test code = 2232) 61 MG/DL HDL CHOLESTEROL (test code = 2220) 93 MG/DL CALC LDL CHOL (test code = 2237) 110 MG/DL RISK RATIO LDL/HDL (test cod e = 2238) 1.18 RATIO COMPREHENSIVE METABOLIC [id number] 00:00:00* Test Item Value Reference Range Interpretation Comme nts GLUCOSE (test code = 2217) 93 MG/DL BUN (test code = 2208) 20 MG/DL CREATININE (test code = 2214) 1.18 MG/DL eGFR AMER. (test cod e = 24860) 61 ML/MIN/1.73 eGFR NON- AMER. (test code = 21527) 52 ML/MIN/1.73 CALC BUN/CREAT (test code = [...] code = 2219) 15 U/L CBC W/AUTO [id number] 00:00:00* Test Item Value Reference Range Interpretation [...] (test code = 1015) 317 K/UL LIPID [id number] 00:00:00* Test Item Value Reference Range Interpretation Comme nts CHOLESTEROL (test code = 2210) 215 MG/DL TRIGLYCERIDES (test code = 2232) 61 MG/DL HDL CHOLESTEROL (test code = 2220) 93 MG/DL CALC LDL CHOL (test code = 2237) 110 MG/DL RISK RATIO LDL/HDL (test cod e = 2238) 1.18 RATIO COMPREHENSIVE METABOLIC [id number] 00:00:00* Test Item Value Reference Range Interpretation Comme nts GLUCOSE (test code = 2217) 93 MG/DL BUN (test code = 2208) 20 MG/DL CREATININE (test code = 2214) 1.18 MG/DL eGFR AMER. (test cod e = 66600) 61 ML/MIN/1.73 eGFR NON- AMER. (test code = 31889) 52 ML/MIN/1.73 CALC BUN/CREAT (test code = [...] (test code = 2219) 15 U/L LIPID [id number] 00:00:00* Test Item Value Reference Range Interpretation Comme nts CHOLESTEROL (test code = 2210) 215 MG/DL TRIGLYCERIDES (test code = 2232) 61 MG/DL HDL CHOLESTEROL (test code = 2220) 93 MG/DL CALC LDL CHOL (test code = 2237) 110 MG/DL RISK RATIO LDL/HDL (test cod e = 2238) 1.18 RATIO Delfinosurinder OrtaCOMPREHENSIVE METABOLIC [id number] 00:00:00* Test Item Value Reference Range Interpretation Comme nts GLUCOSE (test code = 2217) 93 MG/DL BUN (test code = 2208) 20 MG/DL CREATININE (test code = 2214) 1.18 MG/DL eGFR AMER. (test cod e = 45283) 61 ML/MIN/1.73 eGFR NON- AMER. (test code = 47630) 52 ML/MIN/1.73 CALC BUN/CREAT (test code = [...] = 2219) 15 U/L Delfino OrtaCBC W/AUTO [id number] 00:00:00* Test Item Value Reference Range Interpretation [...] code = 1015) 317 K/UL Delfino OrtaLIPID [id number] 00:00:00* Test Item Value Reference Range Interpretation Comme nts CHOLESTEROL (test code = 2210) 215 MG/DL TRIGLYCERIDES (test code = 2232) 61 MG/DL HDL CHOLESTEROL (test code = 2220) 93 MG/DL CALC LDL CHOL (test code = 2237) 110 MG/DL RISK RATIO LDL/HDL (test cod e = 2238) 1.18 RATIO Delfino OrtaCOMPREHENSIVE METABOLIC [id number] 00:00:00* Test Item Value Reference Range Interpretation Comme nts GLUCOSE (test code = 2217) 93 MG/DL BUN (test code = 2208) 20 MG/DL CREATININE (test code = 2214) 1.18 MG/DL eGFR AMER. (test cod e = 50336) 61 ML/MIN/1.73 eGFR NON- AMER. (test code = 91662) 52 ML/MIN/1.73 CALC BUN/CREAT (test code = [...] 2219) 15 U/L Delfino Schumacher YouCBC W/AUTO [id number] 00:00:00* Test Item Value Reference Range Interpretation [...] = 1015) 317 K/UL Delfino OrtaCBC W/AUTO [id number] 00:00:00* Test Item Value Reference Range Interpretation [...] code = 1015) 317 K/UL Delfino OrtaLIPID [id number] 00:00:00* Test Item Value Reference Range Interpretation Comme nts CHOLESTEROL (test code = 2210) 215 MG/DL TRIGLYCERIDES (test code = 2232) 61 MG/DL HDL CHOLESTEROL (test code = 2220) 93 MG/DL CALC LDL CHOL (test code = 2237) 110 MG/DL RISK RATIO LDL/HDL (test cod e = 2238) 1.18 RATIO Delfino OrtaCOMPREHENSIVE METABOLIC [id number] 00:00:00* Test Item Value Reference Range Interpretation Comme nts GLUCOSE (test code = 2217) 93 MG/DL BUN (test code = 2208) 20 MG/DL CREATININE (test code = 2214) 1.18 MG/DL eGFR AMER. (test cod e = 30036) 61 ML/MIN/1.73 eGFR NON- AMER. (test code = 46997) 52 ML/MIN/1.73 CALC BUN/CREAT (test code = [...] = 2219) 15 U/L Delfino OrtaCBC W/AUTO [id number] 00:00:00* Test Item Value Reference Range Interpretation [...] code = 1015) 317 K/UL Delfino OrtaLIPID [id number] 00:00:00* Test Item Value Reference Range Interpretation Comme nts CHOLESTEROL (test code = 2210) 215 MG/DL TRIGLYCERIDES (test code = 2232) 61 MG/DL HDL CHOLESTEROL (test code = 2220) 93 MG/DL CALC LDL CHOL (test code = 2237) 110 MG/DL RISK RATIO LDL/HDL (test cod e = 2238) 1.18 RATIO Delfino Schumacher AustinLIPID [id number] 00:00:00* Test Item Value Reference Range Interpretation Comme nts CHOLESTEROL (test code = 2210) 215 MG/DL TRIGLYCERIDES (test code = 2232) 61 MG/DL HDL CHOLESTEROL (test code = 2220) 93 MG/DL CALC LDL CHOL (test code = 2237) 110 MG/DL RISK RATIO LDL/HDL (test cod e = 2238) 1.18 RATIO Delfino OrtaCOMPREHENSIVE METABOLIC [id number] 00:00:00* Test Item Value Reference Range Interpretation Comme nts GLUCOSE (test code = 2217) 93 MG/DL BUN (test code = 2208) 20 MG/DL CREATININE (test code = 2214) 1.18 MG/DL eGFR AMER. (test cod e = 92315) 61 ML/MIN/1.73 eGFR NON- AMER. (test code = 01909) 52 ML/MIN/1.73 CALC BUN/CREAT (test code = [...] 2219) 15 U/L Delfino Schumacher YouCBC W/AUTO [id number] 00:00:00* Test Item Value Reference Range Interpretation [...] code = 1015) 317 K/UL Delfino OrtaLIPID [id number] 00:00:00* Test Item Value Reference Range Interpretation Comme nts CHOLESTEROL (test code = 2210) 215 MG/DL TRIGLYCERIDES (test code = 2232) 61 MG/DL HDL CHOLESTEROL (test code = 2220) 93 MG/DL CALC LDL CHOL (test code = 2237) 110 MG/DL RISK RATIO LDL/HDL (test cod e = 2238) 1.18 RATIO Delfino OrtaCOMPREHENSIVE METABOLIC [id number] 00:00:00* Test Item Value Reference Range Interpretation Comme nts GLUCOSE (test code = 2217) 93 MG/DL BUN (test code = 2208) 20 MG/DL CREATININE (test code = 2214) 1.18 MG/DL eGFR AMER. (test cod e = 66756) 61 ML/MIN/1.73 eGFR NON- AMER. (test code = 88813) 52 ML/MIN/1.73 CALC BUN/CREAT (test code = [...] 2219) 15 U/L Delfino Schumacher AustinCOMPREHENSIVE METABOLIC [id number] 00:00:00* Test Item Value Reference Range Interpretation Comme nts GLUCOSE (test code = 2217) 93 MG/DL BUN (test code = 2208) 20 MG/DL CREATININE (test code = 2214) 1.18 MG/DL eGFR AMER. (test cod e = 65871) 61 ML/MIN/1.73 eGFR NON- AMER. (test code = 92754) 52 ML/MIN/1.73 CALC BUN/CREAT (test code = [...] = 2219) 15 U/L Delfino OrtaCBC W/AUTO [id number] 00:00:00* Test Item Value Reference Range Interpretation [...] code = 1015) 317 K/UL Delfino OrtaLIPID [id number] 00:00:00* Test Item Value Reference Range Interpretation Comme nts CHOLESTEROL (test code = 2210) 215 MG/DL TRIGLYCERIDES (test code = 2232) 61 MG/DL HDL CHOLESTEROL (test code = 2220) 93 MG/DL CALC LDL CHOL (test code = 2237) 110 MG/DL RISK RATIO LDL/HDL (test cod e = 2238) 1.18 RATIO Delfino rOtaCOMPREHENSIVE METABOLIC [id number] 00:00:00* Test Item Value Reference Range Interpretation Comme nts GLUCOSE (test code = 2217) 93 MG/DL BUN (test code = 2208) 20 MG/DL CREATININE (test code = 2214) 1.18 MG/DL eGFR AMER. (test cod e = 03212) 61 ML/MIN/1.73 eGFR NON- AMER. (test code = 58324) 52 ML/MIN/1.73 CALC BUN/CREAT (test code = [...] = 2219) 15 U/L Delfino OrtaCBC W/AUTO [id number] 00:00:00* Test Item Value Reference Range Interpretation [...] code = 1015) 317 K/UL Delfino OrtaLIPID [id number] 00:00:00* Test Item Value Reference Range Interpretation Comme nts CHOLESTEROL (test code = 2210) 215 MG/DL TRIGLYCERIDES (test code = 2232) 61 MG/DL HDL CHOLESTEROL (test code = 2220) 93 MG/DL CALC LDL CHOL (test code = 2237) 110 MG/DL RISK RATIO LDL/HDL (test cod e = 2238) 1.18 RATIO Delfino Endy YouCOMPREHENSIVE METABOLIC [id number] 00:00:00* Test Item Value Reference Range Interpretation Comme nts GLUCOSE (test code = 2217) 93 MG/DL BUN (test code = 2208) 20 MG/DL CREATININE (test code = 2214) 1.18 MG/DL eGFR AMER. (test cod e = 84277) 61 ML/MIN/1.73 eGFR NON- AMER. (test code = 37610) 52 ML/MIN/1.73 CALC BUN/CREAT (test code = [...] = 2219) 15 U/L Delfino OrtaCBC W/AUTO [id number] 00:00:00* Test Item Value Reference Range Interpretation [...] code = 1015) 317 K/UL Delfino OrtaLIPID [id number] 00:00:00* Test Item Value Reference Range Interpretation Comme nts CHOLESTEROL (test code = 2210) 215 MG/DL TRIGLYCERIDES (test code = 2232) 61 MG/DL HDL CHOLESTEROL (test code = 2220) 93 MG/DL CALC LDL CHOL (test code = 2237) 110 MG/DL RISK RATIO LDL/HDL (test cod e = 2238) 1.18 RATIO Delfino OrtaCOMPREHENSIVE METABOLIC [id number] 00:00:00* Test Item Value Reference Range Interpretation Comme nts GLUCOSE (test code = 2217) 93 MG/DL BUN (test code = 2208) 20 MG/DL CREATININE (test code = 2214) 1.18 MG/DL eGFR AMER. (test cod e = 02645) 61 ML/MIN/1.73 eGFR NON- AMER. (test code = 97218) 52 ML/MIN/1.73 CALC BUN/CREAT (test code = [...] = 2219) 15 U/L Delfino OrtaCBC W/AUTO [id number] 00:00:00* Test Item Value Reference Range Interpretation [...] code = 1015) 317 K/UL Delfino OrtaLIPID [id number] 00:00:00* Test Item Value Reference Range Interpretation Comme nts CHOLESTEROL (test code = 2210) 215 MG/DL TRIGLYCERIDES (test code = 2232) 61 MG/DL HDL CHOLESTEROL (test code = 2220) 93 MG/DL CALC LDL CHOL (test code = 2237) 110 MG/DL RISK RATIO LDL/HDL (test cod e = 2238) 1.18 RATIO Delfino OrtaCOMPREHENSIVE METABOLIC [id number] 00:00:00* Test Item Value Reference Range Interpretation Comme nts GLUCOSE (test code = 2217) 93 MG/DL BUN (test code = 2208) 20 MG/DL CREATININE (test code = 2214) 1.18 MG/DL eGFR AMER. (test cod e = 99815) 61 ML/MIN/1.73 eGFR NON- AMER. (test code = 47927) 52 ML/MIN/1.73 CALC BUN/CREAT (test code = [...] = 2219) 15 U/L Delfino OrtaCBC W/AUTO [id number] 00:00:00* Test Item Value Reference Range Interpretation [...] code = 1015) 317 K/UL Delfino OrtaLIPID [id number] 00:00:00* Test Item Value Reference Range Interpretation Comme nts CHOLESTEROL (test code = 2210) 215 MG/DL TRIGLYCERIDES (test code = 2232) 61 MG/DL HDL CHOLESTEROL (test code = 2220) 93 MG/DL CALC LDL CHOL (test code = 2237) 110 MG/DL RISK RATIO LDL/HDL (test cod e = 2238) 1.18 RATIO Delfino OrtaCOMPREHENSIVE METABOLIC [id number] 00:00:00* Test Item Value Reference Range Interpretation Comme nts GLUCOSE (test code = 2217) 93 MG/DL BUN (test code = 2208) 20 MG/DL CREATININE (test code = 2214) 1.18 MG/DL eGFR AMER. (test cod e = 99226) 61 ML/MIN/1.73 eGFR NON- AMER. (test code = 89353) 52 ML/MIN/1.73 CALC BUN/CREAT (test code = [...] = 2219) 15 U/L Delfino OrtaCBC W/AUTO [id number] 00:00:00* Test Item Value Reference Range Interpretation [...] code = 1015) 317 K/UL Delfino OrtaLIPID [id number] 00:00:00* Test Item Value Reference Range Interpretation Comme nts CHOLESTEROL (test code = 2210) 215 MG/DL TRIGLYCERIDES (test code = 2232) 61 MG/DL HDL CHOLESTEROL (test code = 2220) 93 MG/DL CALC LDL CHOL (test code = 2237) 110 MG/DL RISK RATIO LDL/HDL (test cod e = 2238) 1.18 RATIO Delfino OrtaCOMPREHENSIVE METABOLIC [id number] 00:00:00* Test Item Value Reference Range Interpretation Comme nts GLUCOSE (test code = 2217) 93 MG/DL BUN (test code = 2208) 20 MG/DL CREATININE (test code = 2214) 1.18 MG/DL eGFR AMER. (test cod e = 71550) 61 ML/MIN/1.73 eGFR NON- AMER. (test code = 44448) 52 ML/MIN/1.73 CALC BUN/CREAT (test code = [...] = 2219) 15 U/L Delfino OrtaCBC W/AUTO [id number] 00:00:00* Test Item Value Reference Range Interpretation [...] = 1015) 317 K/UL Delfino Schumacher AustinLIPID [id number] 00:00:00* Test Item Value Reference Range Interpretation Comme nts CHOLESTEROL (test code = 2210) 215 MG/DL TRIGLYCERIDES (test code = 2232) 61 MG/DL HDL CHOLESTEROL (test code = 2220) 93 MG/DL CALC LDL CHOL (test code = 2237) 110 MG/DL RISK RATIO LDL/HDL (test cod e = 2238) 1.18 RATIO Delfino OrtaCOMPREHENSIVE METABOLIC [id number] 00:00:00* Test Item Value Reference Range Interpretation Comme nts GLUCOSE (test code = 2217) 93 MG/DL BUN (test code = 2208) 20 MG/DL CREATININE (test code = 2214) 1.18 MG/DL eGFR AMER. (test cod e = 46750) 61 ML/MIN/1.73 eGFR NON- AMER. (test code = 55295) 52 ML/MIN/1.73 CALC BUN/CREAT (test code = [...] = 2219) 15 U/L Delfino OrtaCBC W/AUTO [id number] 00:00:00* Test Item Value Reference Range Interpretation [...] code = 1015) 317 K/UL Delfino OrtaLIPID [id number] 00:00:00* Test Item Value Reference Range Interpretation Comme nts CHOLESTEROL (test code = 2210) 215 MG/DL TRIGLYCERIDES (test code = 2232) 61 MG/DL HDL CHOLESTEROL (test code = 2220) 93 MG/DL CALC LDL CHOL (test code = 2237) 110 MG/DL RISK RATIO LDL/HDL (test cod e = 2238) 1.18 RATIO Delfino OrtaCOMPREHENSIVE METABOLIC [id number] 00:00:00* Test Item Value Reference Range Interpretation Comme nts GLUCOSE (test code = 2217) 93 MG/DL BUN (test code = 2208) 20 MG/DL CREATININE (test code = 2214) 1.18 MG/DL eGFR AMER. (test cod e = 08026) 61 ML/MIN/1.73 eGFR NON- AMER. (test code = 09969) 52 ML/MIN/1.73 CALC BUN/CREAT (test code = [...] = 2219) 15 U/L Delfino OrtaCBC W/AUTO [id number] 00:00:00* Test Item Value Reference Range Interpretation [...] code = 1015) 317 K/UL Delfino OrtaLIPID [id number] 00:00:00* Test Item Value Reference Range Interpretation Comme nts CHOLESTEROL (test code = 2210) 215 MG/DL TRIGLYCERIDES (test code = 2232) 61 MG/DL HDL CHOLESTEROL (test code = 2220) 93 MG/DL CALC LDL CHOL (test code = 2237) 110 MG/DL RISK RATIO LDL/HDL (test cod e = 2238) 1.18 RATIO Delfino Schumacher YouCOMPREHENSIVE METABOLIC [id number] 00:00:00* Test Item Value Reference Range Interpretation Comme nts GLUCOSE (test code = 2217) 93 MG/DL BUN (test code = 2208) 20 MG/DL CREATININE (test code = 2214) 1.18 MG/DL eGFR AMER. (test cod e = 02089) 61 ML/MIN/1.73 eGFR NON- AMER. (test code = 12307) 52 ML/MIN/1.73 CALC BUN/CREAT (test code = [...] = 2219) 15 U/L Delfino OrtaCBC W/AUTO [id number] 00:00:00* Test Item Value Reference Range Interpretation [...] code = 1015) 317 K/UL Delfino OrtaLIPID [id number] 00:00:00* Test Item Value Reference Range Interpretation Comme nts CHOLESTEROL (test code = 2210) 215 MG/DL TRIGLYCERIDES (test code = 2232) 61 MG/DL HDL CHOLESTEROL (test code = 2220) 93 MG/DL CALC LDL CHOL (test code = 2237) 110 MG/DL RISK RATIO LDL/HDL (test cod e = 2238) 1.18 RATIO Delfino OrtaCOMPREHENSIVE METABOLIC [id number] 00:00:00* Test Item Value Reference Range Interpretation Comme nts GLUCOSE (test code = 2217) 93 MG/DL BUN (test code = 2208) 20 MG/DL CREATININE (test code = 2214) 1.18 MG/DL eGFR AMER. (test cod e = 55929) 61 ML/MIN/1.73 eGFR NON- AMER. (test code = 83355) 52 ML/MIN/1.73 CALC BUN/CREAT (test code = [...] = 2219) 15 U/L Delfino OrtaCBC W/AUTO [id number] 00:00:00* Test Item Value Reference Range Interpretation [...] code = 1015) 317 K/UL Delfino OrtaLIPID [id number] 00:00:00* Test Item Value Reference Range Interpretation Comme nts CHOLESTEROL (test code = 2210) 215 MG/DL TRIGLYCERIDES (test code = 2232) 61 MG/DL HDL CHOLESTEROL (test code = 2220) 93 MG/DL CALC LDL CHOL (test code = 2237) 110 MG/DL RISK RATIO LDL/HDL (test cod e = 2238) 1.18 RATIO Delfino OrtaCOMPREHENSIVE METABOLIC [id number] 00:00:00* Test Item Value Reference Range Interpretation Comme nts GLUCOSE (test code = 2217) 93 MG/DL BUN (test code = 2208) 20 MG/DL CREATININE (test code = 2214) 1.18 MG/DL eGFR AMER. (test cod e = 05860) 61 ML/MIN/1.73 eGFR NON- AMER. (test code = 72898) 52 ML/MIN/1.73 CALC BUN/CREAT (test code = [...] 2219) 15 U/L Delfino Schumacher YouCBC W/AUTO [id number] 00:00:00* Test Item Value Reference Range Interpretation [...] code = 1015) 317 K/UL Delfino OrtaLIPID [id number] 00:00:00* Test Item Value Reference Range Interpretation Comme nts CHOLESTEROL (test code = 2210) 215 MG/DL TRIGLYCERIDES (test code = 2232) 61 MG/DL HDL CHOLESTEROL (test code = 2220) 93 MG/DL CALC LDL CHOL (test code = 2237) 110 MG/DL RISK RATIO LDL/HDL (test cod e = 2238) 1.18 RATIO Delfino OrtaCOMPREHENSIVE METABOLIC [id number] 00:00:00* Test Item Value Reference Range Interpretation Comme nts GLUCOSE (test code = 2217) 93 MG/DL BUN (test code = 2208) 20 MG/DL CREATININE (test code = 2214) 1.18 MG/DL eGFR AMER. (test cod e = 84375) 61 ML/MIN/1.73 eGFR NON- AMER. (test code = 06518) 52 ML/MIN/1.73 CALC BUN/CREAT (test code = [...] = 2219) 15 U/L Delfino OrtaCBC W/AUTO [id number] 00:00:00* Test Item Value Reference Range Interpretation [...] code = 1015) 317 K/UL Delfino OrtaLIPID [id number] 00:00:00* Test Item Value Reference Range Interpretation Comme nts CHOLESTEROL (test code = 2210) 215 MG/DL TRIGLYCERIDES (test code = 2232) 61 MG/DL HDL CHOLESTEROL (test code = 2220) 93 MG/DL CALC LDL CHOL (test code = 2237) 110 MG/DL RISK RATIO LDL/HDL (test cod e = 2238) 1.18 RATIO Delfino OrtaCOMPREHENSIVE METABOLIC [id number] 00:00:00* Test Item Value Reference Range Interpretation Comme nts GLUCOSE (test code = 2217) 93 MG/DL BUN (test code = 2208) 20 MG/DL CREATININE (test code = 2214) 1.18 MG/DL eGFR AMER. (test cod e = 06334) 61 ML/MIN/1.73 eGFR NON- AMER. (test code = 53262) 52 ML/MIN/1.73 CALC BUN/CREAT (test code = [...] = 2219) 15 U/L Delfino OrtaCBC W/AUTO [id number] 00:00:00* Test Item Value Reference Range Interpretation [...] code = 1015) 317 K/UL Delfino OrtaLIPID [id number] 00:00:00* Test Item Value Reference Range Interpretation Comme nts CHOLESTEROL (test code = 2210) 215 MG/DL TRIGLYCERIDES (test code = 2232) 61 MG/DL HDL CHOLESTEROL (test code = 2220) 93 MG/DL CALC LDL CHOL (test code = 2237) 110 MG/DL RISK RATIO LDL/HDL (test cod e = 2238) 1.18 RATIO Delfino OrtaCOMPREHENSIVE METABOLIC [id number] 00:00:00* Test Item Value Reference Range Interpretation Comme nts GLUCOSE (test code = 2217) 93 MG/DL BUN (test code = 2208) 20 MG/DL CREATININE (test code = 2214) 1.18 MG/DL eGFR AMER. (test cod e = 94792) 61 ML/MIN/1.73 eGFR NON- AMER. (test code = 60953) 52 ML/MIN/1.73 CALC BUN/CREAT (test code = [...] (test code = 2219) 15 U/L [facility] W/AUTO [id number] 00:00:00* Test Item Value Reference Range Interpretation [...] code = 1015) 317 K/UL Delfino OrtaLIPID [id number] 00:00:00* Test Item Value Reference Range Interpretation Comme nts CHOLESTEROL (test code = 2210) 215 MG/DL TRIGLYCERIDES (test code = 2232) 61 MG/DL HDL CHOLESTEROL (test code = 2220) 93 MG/DL CALC LDL CHOL (test code = 2237) 110 MG/DL RISK RATIO LDL/HDL (test cod e = 2238) 1.18 RATIO Delfino OrtaCOMPREHENSIVE METABOLIC [id number] 00:00:00* Test Item Value Reference Range Interpretation Comme nts GLUCOSE (test code = 2217) 93 MG/DL BUN (test code = 2208) 20 MG/DL CREATININE (test code = 2214) 1.18 MG/DL eGFR AMER. (test cod e = 71761) 61 ML/MIN/1.73 eGFR NON- AMER. (test code = 66123) 52 ML/MIN/1.73 CALC BUN/CREAT (test code = [...] = 2219) 15 U/L Delfino OrtaCBC W/AUTO [id number] 00:00:00* Test Item Value Reference Range Interpretation [...] code = 1015) 317 K/UL Delfino OrtaLIPID [id number] 00:00:00* Test Item Value Reference Range Interpretation Comme nts CHOLESTEROL (test code = 2210) 215 MG/DL TRIGLYCERIDES (test code = 2232) 61 MG/DL HDL CHOLESTEROL (test code = 2220) 93 MG/DL CALC LDL CHOL (test code = 2237) 110 MG/DL RISK RATIO LDL/HDL (test cod e = 2238) 1.18 RATIO Delfino OrtaCOMPREHENSIVE METABOLIC [id number] 00:00:00* Test Item Value Reference Range Interpretation Comme nts GLUCOSE (test code = 2217) 93 MG/DL BUN (test code = 2208) 20 MG/DL CREATININE (test code = 2214) 1.18 MG/DL eGFR AMER. (test cod e = 39844) 61 ML/MIN/1.73 eGFR NON- AMER. (test code = 02456) 52 ML/MIN/1.73 CALC BUN/CREAT (test code = [...] = 2219) 15 U/L Delfino OrtaCBC W/AUTO [id number] 00:00:00* Test Item Value Reference Range Interpretation [...] code = 1015) 317 K/UL Delfino OrtaLIPID [id number] 00:00:00* Test Item Value Reference Range Interpretation Comme nts CHOLESTEROL (test code = 2210) 215 MG/DL TRIGLYCERIDES (test code = 2232) 61 MG/DL HDL CHOLESTEROL (test code = 2220) 93 MG/DL CALC LDL CHOL (test code = 2237) 110 MG/DL RISK RATIO LDL/HDL (test cod e = 2238) 1.18 RATIO Delfino OrtaCOMPREHENSIVE METABOLIC [id number] 00:00:00* Test Item Value Reference Range Interpretation Comme nts GLUCOSE (test code = 2217) 93 MG/DL BUN (test code = 2208) 20 MG/DL CREATININE (test code = 2214) 1.18 MG/DL eGFR AMER. (test cod e = 78799) 61 ML/MIN/1.73 eGFR NON- AMER. (test code = 39666) 52 ML/MIN/1.73 CALC BUN/CREAT (test code = [...] = 2219) 15 U/L Delfino OrtaCBC W/AUTO [id number] 00:00:00* Test Item Value Reference Range Interpretation [...] code = 1015) 317 K/UL Delfino OrtaLIPID [id number] 00:00:00* Test Item Value Reference Range Interpretation Comme nts CHOLESTEROL (test code = 2210) 215 MG/DL TRIGLYCERIDES (test code = 2232) 61 MG/DL HDL CHOLESTEROL (test code = 2220) 93 MG/DL CALC LDL CHOL (test code = 2237) 110 MG/DL RISK RATIO LDL/HDL (test cod e = 2238) 1.18 RATIO Delfino OrtaCOMPREHENSIVE METABOLIC [id number] 00:00:00* Test Item Value Reference Range Interpretation Comme nts GLUCOSE (test code = 2217) 93 MG/DL BUN (test code = 2208) 20 MG/DL CREATININE (test code = 2214) 1.18 MG/DL eGFR AMER. (test cod e = 76567) 61 ML/MIN/1.73 eGFR NON- AMER. (test code = 82154) 52 ML/MIN/1.73 CALC BUN/CREAT (test code = [...] = 2219) 15 U/L Delfino OrtaCBC W/AUTO [id number] 00:00:00* Test Item Value Reference Range Interpretation [...] code = 1015) 317 K/UL Delfino OrtaLIPID [id number] 00:00:00* Test Item Value Reference Range Interpretation Comme nts CHOLESTEROL (test code = 2210) 215 MG/DL TRIGLYCERIDES (test code = 2232) 61 MG/DL HDL CHOLESTEROL (test code = 2220) 93 MG/DL CALC LDL CHOL (test code = 2237) 110 MG/DL RISK RATIO LDL/HDL (test cod e = 2238) 1.18 RATIO Delfino OrtaCOMPREHENSIVE METABOLIC [id number] 00:00:00* Test Item Value Reference Range Interpretation Comme nts GLUCOSE (test code = 2217) 93 MG/DL BUN (test code = 2208) 20 MG/DL CREATININE (test code = 2214) 1.18 MG/DL eGFR AMER. (test cod e = 05648) 61 ML/MIN/1.73 eGFR NON- AMER. (test code = 44282) 52 ML/MIN/1.73 CALC BUN/CREAT (test code = [...] 2219) 15 U/L Delfino Schumacher YouCBC W/AUTO [id number] 00:00:00* Test Item Value Reference Range Interpretation [...] code = 1015) 317 K/UL Delfino OrtaLIPID [id number] 00:00:00* Test Item Value Reference Range Interpretation Comme nts CHOLESTEROL (test code = 2210) 215 MG/DL TRIGLYCERIDES (test code = 2232) 61 MG/DL HDL CHOLESTEROL (test code = 2220) 93 MG/DL CALC LDL CHOL (test code = 2237) 110 MG/DL RISK RATIO LDL/HDL (test cod e = 2238) 1.18 RATIO Delfino OrtaCOMPREHENSIVE METABOLIC [id number] 00:00:00* Test Item Value Reference Range Interpretation Comme nts GLUCOSE (test code = 2217) 93 MG/DL BUN (test code = 2208) 20 MG/DL CREATININE (test code = 2214) 1.18 MG/DL eGFR AMER. (test cod e = 25715) 61 ML/MIN/1.73 eGFR NON- AMER. (test code = 28365) 52 ML/MIN/1.73 CALC BUN/CREAT (test code = [...] = 2219) 15 U/L Delfino OrtaCBC W/AUTO [id number] 00:00:00* Test Item Value Reference Range Interpretation [...] code = 1015) 317 K/UL Delfino OrtaLIPID [id number] 00:00:00* Test Item Value Reference Range Interpretation Comme nts CHOLESTEROL (test code = 2210) 215 MG/DL TRIGLYCERIDES (test code = 2232) 61 MG/DL HDL CHOLESTEROL (test code = 2220) 93 MG/DL CALC LDL CHOL (test code = 2237) 110 MG/DL RISK RATIO LDL/HDL (test cod e = 2238) 1.18 RATIO Delfino OrtaCOMPREHENSIVE METABOLIC [id number] 00:00:00* Test Item Value Reference Range Interpretation Comme nts GLUCOSE (test code = 2217) 93 MG/DL BUN (test code = 2208) 20 MG/DL CREATININE (test code = 2214) 1.18 MG/DL eGFR AMER. (test cod e = 37898) 61 ML/MIN/1.73 eGFR NON- AMER. (test code = 69647) 52 ML/MIN/1.73 CALC BUN/CREAT (test code = [...] = 2219) 15 U/L Delfino OrtaCBC W/AUTO [id number] 00:00:00* Test Item Value Reference Range Interpretation [...] code = 1015) 317 K/UL Delfino OrtaLIPID [id number] 00:00:00* Test Item Value Reference Range Interpretation Comme nts CHOLESTEROL (test code = 2210) 215 MG/DL TRIGLYCERIDES (test code = 2232) 61 MG/DL HDL CHOLESTEROL (test code = 2220) 93 MG/DL CALC LDL CHOL (test code = 2237) 110 MG/DL RISK RATIO LDL/HDL (test cod e = 2238) 1.18 RATIO Delfino OrtaCOMPREHENSIVE METABOLIC [id number] 00:00:00* Test Item Value Reference Range Interpretation Comme nts GLUCOSE (test code = 2217) 93 MG/DL BUN (test code = 2208) 20 MG/DL CREATININE (test code = 2214) 1.18 MG/DL eGFR AMER. (test cod e = 00897) 61 ML/MIN/1.73 eGFR NON- AMER. (test code = 38876) 52 ML/MIN/1.73 CALC BUN/CREAT (test code = [...] 2219) 15 U/L Delfino Endy YouCBC W/AUTO [id number] 00:00:00* Test Item Value Reference Range Interpretation [...] = 1015) 317 K/UL Delfino F YouLIPID [id number] 00:00:00* Test Item Value Reference Range Interpretation Comme nts CHOLESTEROL (test code = 2210) 215 MG/DL TRIGLYCERIDES (test code = 2232) 61 MG/DL HDL CHOLESTEROL (test code = 2220) 93 MG/DL CALC LDL CHOL (test code = 2237) 110 MG/DL RISK RATIO LDL/HDL (test cod e = 2238) 1.18 RATIO Delfino Endy YouCOMPREHENSIVE METABOLIC [id number] 00:00:00* Test Item Value Reference Range Interpretation Comme nts GLUCOSE (test code = 2217) 93 MG/DL BUN (test code = 2208) 20 MG/DL CREATININE (test code = 2214) 1.18 MG/DL eGFR AMER. (test cod e = 40312) 61 ML/MIN/1.73 eGFR NON- AMER. (test code = 34909) 52 ML/MIN/1.73 CALC BUN/CREAT (test code = [...] = 2219) 15 U/L Delfino OrtaCBC W/AUTO [id number] 00:00:00* Test Item Value Reference Range Interpretation [...] code = 1015) 317 K/UL Delfino OrtaLIPID [id number] 00:00:00* Test Item Value Reference Range Interpretation Comme nts CHOLESTEROL (test code = 2210) 215 MG/DL TRIGLYCERIDES (test code = 2232) 61 MG/DL HDL CHOLESTEROL (test code = 2220) 93 MG/DL CALC LDL CHOL (test code = 2237) 110 MG/DL RISK RATIO LDL/HDL (test cod e = 2238) 1.18 RATIO Delfino OrtaCOMPREHENSIVE METABOLIC [id number] 00:00:00* Test Item Value Reference Range Interpretation Comme nts GLUCOSE (test code = 2217) 93 MG/DL BUN (test code = 2208) 20 MG/DL CREATININE (test code = 2214) 1.18 MG/DL eGFR AMER. (test cod e = 95524) 61 ML/MIN/1.73 eGFR NON- AMER. (test code = 78513) 52 ML/MIN/1.73 CALC BUN/CREAT (test code = [...] = 2219) 15 U/L Delfino OrtaCBC W/AUTO [id number] 00:00:00* Test Item Value Reference Range Interpretation [...] = 1015) 317 K/UL Delfino Endy YouLIPID [id number] 00:00:00* Test Item Value Reference Range Interpretation Comme nts CHOLESTEROL (test code = 2210) 215 MG/DL TRIGLYCERIDES (test code = 2232) 61 MG/DL HDL CHOLESTEROL (test code = 2220) 93 MG/DL CALC LDL CHOL (test code = 2237) 110 MG/DL RISK RATIO LDL/HDL (test cod e = 2238) 1.18 RATIO Delfino Endy YouCOMPREHENSIVE METABOLIC [id number] 00:00:00* Test Item Value Reference Range Interpretation Comme nts GLUCOSE (test code = 2217) 93 MG/DL BUN (test code = 2208) 20 MG/DL CREATININE (test code = 2214) 1.18 MG/DL eGFR AMER. (test cod e = 70184) 61 ML/MIN/1.73 eGFR NON- AMER. (test code = 71646) 52 ML/MIN/1.73 CALC BUN/CREAT (test code = [...] = 2219) 15 U/L Delfino OrtaCBC W/AUTO [id number] 00:00:00* Test Item Value Reference Range Interpretation [...] code = 1015) 317 K/UL Delfino OrtaLIPID [id number] 00:00:00* Test Item Value Reference Range Interpretation Comme nts CHOLESTEROL (test code = 2210) 215 MG/DL TRIGLYCERIDES (test code = 2232) 61 MG/DL HDL CHOLESTEROL (test code = 2220) 93 MG/DL CALC LDL CHOL (test code = 2237) 110 MG/DL RISK RATIO LDL/HDL (test cod e = 2238) 1.18 RATIO Delfino OrtaCOMPREHENSIVE METABOLIC [id number] 00:00:00* Test Item Value Reference Range Interpretation Comme nts GLUCOSE (test code = 2217) 93 MG/DL BUN (test code = 2208) 20 MG/DL CREATININE (test code = 2214) 1.18 MG/DL eGFR AMER. (test cod e = 72940) 61 ML/MIN/1.73 eGFR NON- AMER. (test code = 58246) 52 ML/MIN/1.73 CALC BUN/CREAT (test code = [...] = 2219) 15 U/L Delfino OrtaCBC W/AUTO [id number] 00:00:00* Test Item Value Reference Range Interpretation [...] code = 1015) 317 K/UL Delfino OrtaLIPID [id number] 00:00:00* Test Item Value Reference Range Interpretation Comme nts CHOLESTEROL (test code = 2210) 215 MG/DL TRIGLYCERIDES (test code = 2232) 61 MG/DL HDL CHOLESTEROL (test code = 2220) 93 MG/DL CALC LDL CHOL (test code = 2237) 110 MG/DL RISK RATIO LDL/HDL (test cod e = 2238) 1.18 RATIO Delfino OrtaCOMPREHENSIVE METABOLIC [id number] 00:00:00* Test Item Value Reference Range Interpretation Comme nts GLUCOSE (test code = 2217) 93 MG/DL BUN (test code = 2208) 20 MG/DL CREATININE (test code = 2214) 1.18 MG/DL eGFR AMER. (test cod e = 72086) 61 ML/MIN/1.73 eGFR NON- AMER. (test code = 66442) 52 ML/MIN/1.73 CALC BUN/CREAT (test code = [...] = 2219) 15 U/L Delfino OrtaCBC W/AUTO [id number] 00:00:00* Test Item Value Reference Range Interpretation [...] code = 1015) 317 K/UL Delfino OrtaLIPID [id number] 00:00:00* Test Item Value Reference Range Interpretation Comme nts CHOLESTEROL (test code = 2210) 215 MG/DL TRIGLYCERIDES (test code = 2232) 61 MG/DL HDL CHOLESTEROL (test code = 2220) 93 MG/DL CALC LDL CHOL (test code = 2237) 110 MG/DL RISK RATIO LDL/HDL (test cod e = 2238) 1.18 RATIO Delfino OrtaCOMPREHENSIVE METABOLIC [id number] 00:00:00* Test Item Value Reference Range Interpretation Comme nts GLUCOSE (test code = 2217) 93 MG/DL BUN (test code = 2208) 20 MG/DL CREATININE (test code = 2214) 1.18 MG/DL eGFR AMER. (test cod e = 25580) 61 ML/MIN/1.73 eGFR NON- AMER. (test code = 59249) 52 ML/MIN/1.73 CALC BUN/CREAT (test code = [...] = 2219) 15 U/L Delfino OrtaCBC W/AUTO [id number] 00:00:00* Test Item Value Reference Range Interpretation [...] (test code = 1015) 317 K/UL [facility]ino [facility] W/AUTO [id number] 00:00:00* Test Item Value Reference Range Interpretation [...] (test code = 1015) 317 K/UL LIPID [id number] 00:00:00* Test Item Value Reference Range Interpretation [...] Comme nts CULTURE, URINE (test code = 13298) SPECIMEN NUMBER: [id number] CULTURE, URINE [ADDED]2017-08-24 00:00:00* Test Item Value Reference Range Interpretation Comme nts CULTURE, URINE (test code = 64712) SPECIMEN NUMBER: [id number] CULTURE, URINE [ADDED]2017-08-24 00:00:00* Test Item Value Reference Range Interpretation Comme nts CULTURE, URINE (test code = 03517) SPECIMEN NUMBER: [id number] CULTURE, URINE [ADDED]2017-08-24 00:00:00* Test Item Value Reference Range Interpretation Comme nts CULTURE, URINE (test code = 81168) SPECIMEN NUMBER: [id number] CULTURE, URINE [ADDED]2017-08-24 00:00:00* Test Item Value Reference Range Interpretation Comme nts CULTURE, URINE (test code = 47950) SPECIMEN NUMBER: [id number] Delfino OrtaCULTURE, URINE [ADDED]2017-08-24 00:00:00* Test Item Value Reference Range Interpretation Comme nts CULTURE, URINE (test code = 66714) SPECIMEN NUMBER: [id number] Delfino OrtaCULTURE, URINE [ADDED]2017-08-24 00:00:00* Test Item Value Reference Range Interpretation Comme nts CULTURE, URINE (test code = 20702) SPECIMEN NUMBER: [id number] Delfino OrtaCULTURE, URINE [ADDED]2017-08-24 00:00:00* Test Item Value Reference Range Interpretation Comme nts CULTURE, URINE (test code = 58129) SPECIMEN NUMBER: [id number] Delfino OrtaCULTURE, URINE [ADDED]2017-08-24 00:00:00* Test Item Value Reference Range Interpretation Comme nts CULTURE, URINE (test code = 16354) SPECIMEN NUMBER: [id number] Delfino OrtaCULTURE, URINE [ADDED]2017-08-24 00:00:00* Test Item Value Reference Range Interpretation Comme nts CULTURE, URINE (test code = 58793) SPECIMEN NUMBER: [id number] Delfino OrtaCULTURE, URINE [ADDED]2017-08-24 00:00:00* Test Item Value Reference Range Interpretation Comme nts CULTURE, URINE (test code = 16229) SPECIMEN NUMBER: [id number] Delfino OrtaCULTURE, URINE [ADDED]2017-08-24 00:00:00* Test Item Value Reference Range Interpretation Comme nts CULTURE, URINE (test code = 48189) SPECIMEN NUMBER: [id number] Delfino OrtaCULTURE, URINE [ADDED]2017-08-24 00:00:00* Test Item Value Reference Range Interpretation Comme nts CULTURE, URINE (test code = 35160) SPECIMEN NUMBER: [id number] Delfino OrtaCULTURE, URINE [ADDED]2017-08-24 00:00:00* Test Item Value Reference Range Interpretation Comme nts CULTURE, URINE (test code = 27359) SPECIMEN NUMBER: [id number] Delfino SarmientoLTURE, URINE [ADDED]2017-08-24 00:00:00* Test Item Value Reference Range Interpretation Comme nts CULTURE, URINE (test code = 39086) SPECIMEN NUMBER: [id number] Delfino SarmientoLTURE, URINE [ADDED]2017-08-24 00:00:00* Test Item Value Reference Range Interpretation Comme nts CULTURE, URINE (test code = 71259) SPECIMEN NUMBER: [id number] Delfino OrtaCULTURE, URINE [ADDED]2017-08-24 00:00:00* Test Item Value Reference Range Interpretation Comme nts CULTURE, URINE (test code = 32817) SPECIMEN NUMBER: [id number] Delfino OrtaCULTURE, URINE [ADDED]2017-08-24 00:00:00* Test Item Value Reference Range Interpretation Comme nts CULTURE, URINE (test code = 92214) SPECIMEN NUMBER: [id number] Delfino OrtaCULTURE, URINE [ADDED]2017-08-24 00:00:00* Test Item Value Reference Range Interpretation Comme nts CULTURE, URINE (test code = 72289) SPECIMEN NUMBER: [id number] Delfino OrtaCULTURE, URINE [ADDED]2017-08-24 00:00:00* Test Item Value Reference Range Interpretation Comme nts CULTURE, URINE (test code = 47937) SPECIMEN NUMBER: [id number] Delfino OrtaCULTURE, URINE [ADDED]2017-08-24 00:00:00* Test Item Value Reference Range Interpretation Comme nts CULTURE, URINE (test code = 19057) SPECIMEN NUMBER: [id number] Delfino OrtaCULTURE, URINE [ADDED]2017-08-24 00:00:00* Test Item Value Reference Range Interpretation Comme nts CULTURE, URINE (test code = 22317) SPECIMEN NUMBER: [id number] Delfino OrtaCULTURE, URINE [ADDED]2017-08-24 00:00:00* Test Item Value Reference Range Interpretation Comme nts CULTURE, URINE (test code = 32601) SPECIMEN NUMBER: [id number] Delfino OrtaCULTURE, URINE [ADDED]2017-08-24 00:00:00* Test Item Value Reference Range Interpretation Comme nts CULTURE, URINE (test code = 71081) SPECIMEN NUMBER: [id number] Delfino SarmientoLTURE, URINE [ADDED]2017-08-24 00:00:00* Test Item Value Reference Range Interpretation Comme nts CULTURE, URINE (test code = 43755) SPECIMEN NUMBER: [id number] Delfino SarmientoLTURE, URINE [ADDED]2017-08-24 00:00:00* Test Item Value Reference Range Interpretation Comme nts CULTURE, URINE (test code = 95566) SPECIMEN NUMBER: [id number] Delfino OrtaCULTURE, URINE [ADDED]2017-08-24 00:00:00* Test Item Value Reference Range Interpretation Comme nts CULTURE, URINE (test code = 03813) SPECIMEN NUMBER: [id number] Delfino OrtaCULTURE, URINE [ADDED]2017-08-24 00:00:00* Test Item Value Reference Range Interpretation Comme nts CULTURE, URINE (test code = 18896) SPECIMEN NUMBER: [id number] Delfino OrtaCULTURE, URINE [ADDED]2017-08-24 00:00:00* Test Item Value Reference Range Interpretation Comme nts CULTURE, URINE (test code = 74012) SPECIMEN NUMBER: [id number] Delfino OrtaCULTURE, URINE [ADDED]2017-08-24 00:00:00* Test Item Value Reference Range Interpretation Comme nts CULTURE, URINE (test code = 61044) SPECIMEN NUMBER: [id number] Delfino OrtaCULTURE, URINE [ADDED]2017-08-24 00:00:00* Test Item Value Reference Range Interpretation Comme nts CULTURE, URINE (test code = 82038) SPECIMEN NUMBER: [id number] Delfino OrtaCULTURE, URINE [ADDED]2017-08-24 00:00:00* Test Item Value Reference Range Interpretation Comme nts CULTURE, URINE (test code = 83147) SPECIMEN NUMBER: [id number] Delfino OrtaCULTURE, URINE [ADDED]2017-08-24 00:00:00* Test Item Value Reference Range Interpretation Comme nts CULTURE, URINE (test code = 53597) SPECIMEN NUMBER: [id number] Delfino OrtaCULTURE, URINE [ADDED]2017-08-24 00:00:00* Test Item Value Reference Range Interpretation Comme nts CULTURE, URINE (test code = 30890) SPECIMEN NUMBER: [id number] Delfino OrtaCULTURE, URINE [ADDED]2017-08-24 00:00:00* Test Item Value Reference Range Interpretation Comme nts CULTURE, URINE (test code = 89356) SPECIMEN NUMBER: [id number] Delfino SarmientoLTURE, URINE [ADDED]2017-08-24 00:00:00* Test Item Value Reference Range Interpretation Comme nts CULTURE, URINE (test code = 79370) SPECIMEN NUMBER: [id number] Delfino SarmientoLTURE, URINE [ADDED]2017-08-24 00:00:00* Test Item Value Reference Range Interpretation Comme nts CULTURE, URINE (test code = 76906) SPECIMEN NUMBER: [id number] Delfino YanceyURE, URINE [ADDED]2017-08-24 00:00:00* Test Item Value Reference Range Interpretation Comme nts CULTURE, URINE (test code = 88809) SPECIMEN NUMBER: [id number] Delfino OrtaHEPATITIS C REFLEX [id number] 00:00:00* Test Item Value Reference Range Interpretation Comme nts HEPATITIS C ANTIBODY (test c ode = 4675) NON-REACTIVE CBC W/AUTO [id number] 00:00:00* Test Item Value Reference Range Interpretation [...] (test code = 1016) (NOTE) COMPREHENSIVE METABOLIC [id number] 00:00:00* Test Item Value Reference Range Interpretation Comme nts GLUCOSE (test code = 2217) 92 MG/DL BUN (test code = 2208) 23 MG/DL CREATININE (test code = 2214) 1.27 MG/DL eGFR AMER. (test cod e = 21909) 55 ML/MIN/1.73 eGFR NON- AMER. (test code = 40527) 48 ML/MIN/1.73 CALC BUN/CREAT (test code = [...] = 2219) 23 U/L HEPATITIS C REFLEX [id number] 00:00:00* Test Item Value Reference Range Interpretation Comme nts HEPATITIS C ANTIBODY (test c ode = 4675) NON-REACTIVE CBC W/AUTO [id number] 00:00:00* Test Item Value Reference Range Interpretation [...] (test code = 1016) (NOTE) COMPREHENSIVE METABOLIC [id number] 00:00:00* Test Item Value Reference Range Interpretation Comme nts GLUCOSE (test code = 2217) 92 MG/DL BUN (test code = 2208) 23 MG/DL CREATININE (test code = 2214) 1.27 MG/DL eGFR AMER. (test cod e = 04269) 55 ML/MIN/1.73 eGFR NON- AMER. (test code = 46598) 48 ML/MIN/1.73 CALC BUN/CREAT (test code = [...] = 2219) 23 U/L HEPATITIS C REFLEX [id number] 00:00:00* Test Item Value Reference Range Interpretation Comme nts HEPATITIS C ANTIBODY (test c ode = 4675) NON-REACTIVE CBC W/AUTO [id number] 00:00:00* Test Item Value Reference Range Interpretation [...] (test code = 1016) (NOTE) COMPREHENSIVE METABOLIC [id number] 00:00:00* Test Item Value Reference Range Interpretation Comme nts GLUCOSE (test code = 2217) 92 MG/DL BUN (test code = 2208) 23 MG/DL CREATININE (test code = 2214) 1.27 MG/DL eGFR AMER. (test cod e = 99455) 55 ML/MIN/1.73 eGFR NON- AMER. (test code = 40715) 48 ML/MIN/1.73 CALC BUN/CREAT (test code = [...] = 2219) 23 U/L HEPATITIS C REFLEX [id number] 00:00:00* Test Item Value Reference Range Interpretation Comme nts HEPATITIS C ANTIBODY (test c ode = 4675) NON-REACTIVE HEPATITIS C REFLEX [id number] 00:00:00* Test Item Value Reference Range Interpretation Comme nts HEPATITIS C ANTIBODY (test c ode = 4675) NON-REACTIVE [facility] W/AUTO [id number] 00:00:00* Test Item Value Reference Range Interpretation [...] = 1016) (NOTE) Delfino Schumacher YouCOMPREHENSIVE METABOLIC [id number] 00:00:00* Test Item Value Reference Range Interpretation Comme nts GLUCOSE (test code = 2217) 92 MG/DL BUN (test code = 2208) 23 MG/DL CREATININE (test code = 2214) 1.27 MG/DL eGFR AMER. (test cod e = 85084) 55 ML/MIN/1.73 eGFR NON- AMER. (test code = 70153) 48 ML/MIN/1.73 CALC BUN/CREAT (test code = [...] 23 U/L Delfino Schumacher YouHEPATITIS C REFLEX [id number] 00:00:00* Test Item Value Reference Range Interpretation Comme nts HEPATITIS C ANTIBODY (test c ode = 4675) NON-REACTIVE Delfino OrtaCBC W/AUTO [id number] 00:00:00* Test Item Value Reference Range Interpretation [...] code = 1016) (NOTE) Delfino OrtaCOMPREHENSIVE METABOLIC [id number] 00:00:00* Test Item Value Reference Range Interpretation Comme nts GLUCOSE (test code = 2217) 92 MG/DL BUN (test code = 2208) 23 MG/DL CREATININE (test code = 2214) 1.27 MG/DL eGFR AMER. (test cod e = 72636) 55 ML/MIN/1.73 eGFR NON- AMER. (test code = 03044) 48 ML/MIN/1.73 CALC BUN/CREAT (test code = [...] 2219) 23 U/L Delfino OrtaHEPATITIS C REFLEX [id number] 00:00:00* Test Item Value Reference Range Interpretation Comme nts HEPATITIS C ANTIBODY (test c ode = 4675) NON-REACTIVE Delfino OrtaCOMPREHENSIVE METABOLIC [id number] 00:00:00* Test Item Value Reference Range Interpretation Comme nts GLUCOSE (test code = 2217) 92 MG/DL BUN (test code = 2208) 23 MG/DL CREATININE (test code = 2214) 1.27 MG/DL eGFR AMER. (test cod e = 51795) 55 ML/MIN/1.73 eGFR NON- AMER. (test code = 50601) 48 ML/MIN/1.73 CALC BUN/CREAT (test code = [...] = 2219) 23 U/L Delfino OrtaCBC W/AUTO [id number] 00:00:00* Test Item Value Reference Range Interpretation [...] code = 1016) (NOTE) Delfino OrtaCOMPREHENSIVE METABOLIC [id number] 00:00:00* Test Item Value Reference Range Interpretation Comme nts GLUCOSE (test code = 2217) 92 MG/DL BUN (test code = 2208) 23 MG/DL CREATININE (test code = 2214) 1.27 MG/DL eGFR AMER. (test cod e = 31576) 55 ML/MIN/1.73 eGFR NON- AMER. (test code = 96377) 48 ML/MIN/1.73 CALC BUN/CREAT (test code = [...] 2219) 23 U/L Delfino OrtaHEPATITIS C REFLEX [id number] 00:00:00* Test Item Value Reference Range Interpretation Comme nts HEPATITIS C ANTIBODY (test c ode = 4675) NON-REACTIVE Delfino OtraCBC W/AUTO [id number] 00:00:00* Test Item Value Reference Range Interpretation [...] code = 1016) (NOTE) Delfino OrtaCOMPREHENSIVE METABOLIC [id number] 00:00:00* Test Item Value Reference Range Interpretation Comme nts GLUCOSE (test code = 2217) 92 MG/DL BUN (test code = 2208) 23 MG/DL CREATININE (test code = 2214) 1.27 MG/DL eGFR AMER. (test cod e = 51422) 55 ML/MIN/1.73 eGFR NON- AMER. (test code = 11341) 48 ML/MIN/1.73 CALC BUN/CREAT (test code = [...] 2219) 23 U/L Delfino OrtaHEPATITIS C REFLEX [id number] 00:00:00* Test Item Value Reference Range Interpretation Comme nts HEPATITIS C ANTIBODY (test c ode = 4675) NON-REACTIVE Delfino OrtaHEPATITIS C REFLEX [id number] 00:00:00* Test Item Value Reference Range Interpretation Comme nts HEPATITIS C ANTIBODY (test c ode = 4675) NON-REACTIVE Delfino OrtaCBC W/AUTO [id number] 00:00:00* Test Item Value Reference Range Interpretation [...] code = 1016) (NOTE) Delfino OrtaCOMPREHENSIVE METABOLIC [id number] 00:00:00* Test Item Value Reference Range Interpretation Comme nts GLUCOSE (test code = 2217) 92 MG/DL BUN (test code = 2208) 23 MG/DL CREATININE (test code = 2214) 1.27 MG/DL eGFR AMER. (test cod e = 26852) 55 ML/MIN/1.73 eGFR NON- AMER. (test code = 09181) 48 ML/MIN/1.73 CALC BUN/CREAT (test code = [...] 2219) 23 U/L Delfino OrtaHEPATITIS C REFLEX [id number] 00:00:00* Test Item Value Reference Range Interpretation Comme nts HEPATITIS C ANTIBODY (test c ode = 4675) NON-REACTIVE Delfino OrtaCBC W/AUTO [id number] 00:00:00* Test Item Value Reference Range Interpretation [...] code = 1016) (NOTE) Delfino OrtaCOMPREHENSIVE METABOLIC [id number] 00:00:00* Test Item Value Reference Range Interpretation Comme nts GLUCOSE (test code = 2217) 92 MG/DL BUN (test code = 2208) 23 MG/DL CREATININE (test code = 2214) 1.27 MG/DL eGFR AMER. (test cod e = 22076) 55 ML/MIN/1.73 eGFR NON- AMER. (test code = 85727) 48 ML/MIN/1.73 CALC BUN/CREAT (test code = [...] 23 U/L Delfino Schumacher YouHEPATITIS C REFLEX [id number] 00:00:00* Test Item Value Reference Range Interpretation Comme nts HEPATITIS C ANTIBODY (test c ode = 4675) NON-REACTIVE Delfino Schumacher YouCBC W/AUTO [id number] 00:00:00* Test Item Value Reference Range Interpretation [...] = 1016) (NOTE) Delfino Schumacher YouCOMPREHENSIVE METABOLIC [id number] 00:00:00* Test Item Value Reference Range Interpretation Comme nts GLUCOSE (test code = 2217) 92 MG/DL BUN (test code = 2208) 23 MG/DL CREATININE (test code = 2214) 1.27 MG/DL eGFR AMER. (test cod e = 84706) 55 ML/MIN/1.73 eGFR NON- AMER. (test code = 50110) 48 ML/MIN/1.73 CALC BUN/CREAT (test code = [...] 23 U/L Delfino Schumacher YouHEPATITIS C REFLEX [id number] 00:00:00* Test Item Value Reference Range Interpretation Comme nts HEPATITIS C ANTIBODY (test c ode = 4675) NON-REACTIVE Delfino Schumacher YouCBC W/AUTO [id number] 00:00:00* Test Item Value Reference Range Interpretation [...] code = 1016) (NOTE) Delfino OrtaCOMPREHENSIVE METABOLIC [id number] 00:00:00* Test Item Value Reference Range Interpretation Comme nts GLUCOSE (test code = 2217) 92 MG/DL BUN (test code = 2208) 23 MG/DL CREATININE (test code = 2214) 1.27 MG/DL eGFR AMER. (test cod e = 38189) 55 ML/MIN/1.73 eGFR NON- AMER. (test code = 97187) 48 ML/MIN/1.73 CALC BUN/CREAT (test code = [...] 2219) 23 U/L Delfino OrtaHEPATITIS C REFLEX [id number] 00:00:00* Test Item Value Reference Range Interpretation Comme nts HEPATITIS C ANTIBODY (test c ode = 4675) NON-REACTIVE Delfino OrtaCBC W/AUTO [id number] 00:00:00* Test Item Value Reference Range Interpretation [...] code = 1016) (NOTE) Delfino OrtaCOMPREHENSIVE METABOLIC [id number] 00:00:00* Test Item Value Reference Range Interpretation Comme nts GLUCOSE (test code = 2217) 92 MG/DL BUN (test code = 2208) 23 MG/DL CREATININE (test code = 2214) 1.27 MG/DL eGFR AMER. (test cod e = 45288) 55 ML/MIN/1.73 eGFR NON- AMER. (test code = 57872) 48 ML/MIN/1.73 CALC BUN/CREAT (test code = [...] 2219) 23 U/L Delfino OrtaHEPATITIS C REFLEX [id number] 00:00:00* Test Item Value Reference Range Interpretation Comme nts HEPATITIS C ANTIBODY (test c ode = 4675) NON-REACTIVE Delfino OrtaCBC W/AUTO [id number] 00:00:00* Test Item Value Reference Range Interpretation [...] = 1016) (NOTE) Delfino Schumacher YouCOMPREHENSIVE METABOLIC [id number] 00:00:00* Test Item Value Reference Range Interpretation Comme nts GLUCOSE (test code = 2217) 92 MG/DL BUN (test code = 2208) 23 MG/DL CREATININE (test code = 2214) 1.27 MG/DL eGFR AMER. (test cod e = 17045) 55 ML/MIN/1.73 eGFR NON- AMER. (test code = 40464) 48 ML/MIN/1.73 CALC BUN/CREAT (test code = [...] 23 U/L Delfino Schumacher YouHEPATITIS C REFLEX [id number] 00:00:00* Test Item Value Reference Range Interpretation Comme nts HEPATITIS C ANTIBODY (test c ode = 4675) NON-REACTIVE Delfino OrtaCBC W/AUTO [id number] 00:00:00* Test Item Value Reference Range Interpretation [...] code = 1016) (NOTE) Delfino OrtaCOMPREHENSIVE METABOLIC [id number] 00:00:00* Test Item Value Reference Range Interpretation Comme nts GLUCOSE (test code = 2217) 92 MG/DL BUN (test code = 2208) 23 MG/DL CREATININE (test code = 2214) 1.27 MG/DL eGFR AMER. (test cod e = 93899) 55 ML/MIN/1.73 eGFR NON- AMER. (test code = 72964) 48 ML/MIN/1.73 CALC BUN/CREAT (test code = [...] 2219) 23 U/L Delfino OrtaHEPATITIS C REFLEX [id number] 00:00:00* Test Item Value Reference Range Interpretation Comme nts HEPATITIS C ANTIBODY (test c ode = 4675) NON-REACTIVE Delfino OrtaCBC W/AUTO [id number] 00:00:00* Test Item Value Reference Range Interpretation [...] code = 1016) (NOTE) Delfino OrtaCOMPREHENSIVE METABOLIC [id number] 00:00:00* Test Item Value Reference Range Interpretation Comme nts GLUCOSE (test code = 2217) 92 MG/DL BUN (test code = 2208) 23 MG/DL CREATININE (test code = 2214) 1.27 MG/DL eGFR AMER. (test cod e = 28815) 55 ML/MIN/1.73 eGFR NON- AMER. (test code = 05630) 48 ML/MIN/1.73 CALC BUN/CREAT (test code = [...] 2219) 23 U/L Delfino OrtaHEPATITIS C REFLEX [id number] 00:00:00* Test Item Value Reference Range Interpretation Comme nts HEPATITIS C ANTIBODY (test c ode = 4675) NON-REACTIVE Delfino OrtaCBC W/AUTO [id number] 00:00:00* Test Item Value Reference Range Interpretation [...] code = 1016) (NOTE) Delfino OrtaCOMPREHENSIVE METABOLIC [id number] 00:00:00* Test Item Value Reference Range Interpretation Comme nts GLUCOSE (test code = 2217) 92 MG/DL BUN (test code = 2208) 23 MG/DL CREATININE (test code = 2214) 1.27 MG/DL eGFR AMER. (test cod e = 74576) 55 ML/MIN/1.73 eGFR NON- AMER. (test code = 90887) 48 ML/MIN/1.73 CALC BUN/CREAT (test code = [...] 23 U/L Delfino Schumacher YouHEPATITIS C REFLEX [id number] 00:00:00* Test Item Value Reference Range Interpretation Comme nts HEPATITIS C ANTIBODY (test c ode = 4675) NON-REACTIVE Delfino Schumacher YouCBC W/AUTO [id number] 00:00:00* Test Item Value Reference Range Interpretation [...] = 1016) (NOTE) Delfino Schumacher YouCOMPREHENSIVE METABOLIC [id number] 00:00:00* Test Item Value Reference Range Interpretation Comme nts GLUCOSE (test code = 2217) 92 MG/DL BUN (test code = 2208) 23 MG/DL CREATININE (test code = 2214) 1.27 MG/DL eGFR AMER. (test cod e = 09066) 55 ML/MIN/1.73 eGFR NON- AMER. (test code = 23227) 48 ML/MIN/1.73 CALC BUN/CREAT (test code = [...] ALT (test code = 2219) 23 U/L Deflino OrtaHEPATITIS C REFLEX [id number] 00:00:00* Test Item Value Reference Range Interpretation Comme nts HEPATITIS C ANTIBODY (test c ode = 4675) NON-REACTIVE Delfino OrtaCBC W/AUTO [id number] 00:00:00* Test Item Value Reference Range Interpretation [...] code = 1016) (NOTE) Delfino OrtaCOMPREHENSIVE METABOLIC [id number] 00:00:00* Test Item Value Reference Range Interpretation Comme nts GLUCOSE (test code = 2217) 92 MG/DL BUN (test code = 2208) 23 MG/DL CREATININE (test code = 2214) 1.27 MG/DL eGFR AMER. (test cod e = 41580) 55 ML/MIN/1.73 eGFR NON- AMER. (test code = 15526) 48 ML/MIN/1.73 CALC BUN/CREAT (test code = [...] 2219) 23 U/L Delfino OrtaHEPATITIS C REFLEX [id number] 00:00:00* Test Item Value Reference Range Interpretation Comme nts HEPATITIS C ANTIBODY (test c ode = 4675) NON-REACTIVE Delfino OrtaCBC W/AUTO [id number] 00:00:00* Test Item Value Reference Range Interpretation [...] code = 1016) (NOTE) Delfino OrtaCOMPREHENSIVE METABOLIC [id number] 00:00:00* Test Item Value Reference Range Interpretation Comme nts GLUCOSE (test code = 2217) 92 MG/DL BUN (test code = 2208) 23 MG/DL CREATININE (test code = 2214) 1.27 MG/DL eGFR AMER. (test cod e = 37525) 55 ML/MIN/1.73 eGFR NON- AMER. (test code = 46497) 48 ML/MIN/1.73 CALC BUN/CREAT (test code = [...] 2219) 23 U/L Delfino OrtaHEPATITIS C REFLEX [id number] 00:00:00* Test Item Value Reference Range Interpretation Comme nts HEPATITIS C ANTIBODY (test c ode = 4675) NON-REACTIVE Delfino OrtaCBC W/AUTO [id number] 00:00:00* Test Item Value Reference Range Interpretation [...] code = 1016) (NOTE) Delfino OrtaCOMPREHENSIVE METABOLIC [id number] 00:00:00* Test Item Value Reference Range Interpretation Comme nts GLUCOSE (test code = 2217) 92 MG/DL BUN (test code = 2208) 23 MG/DL CREATININE (test code = 2214) 1.27 MG/DL eGFR AMER. (test cod e = 98262) 55 ML/MIN/1.73 eGFR NON- AMER. (test code = 49663) 48 ML/MIN/1.73 CALC BUN/CREAT (test code = [...] 2219) 23 U/L Delfino OrtaHEPATITIS C REFLEX [id number] 00:00:00* Test Item Value Reference Range Interpretation Comme nts HEPATITIS C ANTIBODY (test c ode = 4675) NON-REACTIVE Delfino OrtaCBC W/AUTO [id number] 00:00:00* Test Item Value Reference Range Interpretation [...] = 1016) (NOTE) Delfino Schumacher YouCOMPREHENSIVE METABOLIC [id number] 00:00:00* Test Item Value Reference Range Interpretation Comme nts GLUCOSE (test code = 2217) 92 MG/DL BUN (test code = 2208) 23 MG/DL CREATININE (test code = 2214) 1.27 MG/DL eGFR AMER. (test cod e = 80508) 55 ML/MIN/1.73 eGFR NON- AMER. (test code = 23461) 48 ML/MIN/1.73 CALC BUN/CREAT (test code = [...] 2219) 23 U/L Delfino OrtaHEPATITIS C REFLEX [id number] 00:00:00* Test Item Value Reference Range Interpretation Comme nts HEPATITIS C ANTIBODY (test c ode = 4675) NON-REACTIVE Delfino OrtaCBC W/AUTO [id number] 00:00:00* Test Item Value Reference Range Interpretation [...] code = 1016) (NOTE) Delfino OrtaCOMPREHENSIVE METABOLIC [id number] 00:00:00* Test Item Value Reference Range Interpretation Comme nts GLUCOSE (test code = 2217) 92 MG/DL BUN (test code = 2208) 23 MG/DL CREATININE (test code = 2214) 1.27 MG/DL eGFR AMER. (test cod e = 30022) 55 ML/MIN/1.73 eGFR NON- AMER. (test code = 29169) 48 ML/MIN/1.73 CALC BUN/CREAT (test code = [...] 2219) 23 U/L Delfino OrtaHEPATITIS C REFLEX [id number] 00:00:00* Test Item Value Reference Range Interpretation Comme nts HEPATITIS C ANTIBODY (test c ode = 4675) NON-REACTIVE Delfino OrtaCBC W/AUTO [id number] 00:00:00* Test Item Value Reference Range Interpretation [...] code = 1016) (NOTE) Delfino OrtaCOMPREHENSIVE METABOLIC [id number] 00:00:00* Test Item Value Reference Range Interpretation Comme nts GLUCOSE (test code = 2217) 92 MG/DL BUN (test code = 2208) 23 MG/DL CREATININE (test code = 2214) 1.27 MG/DL eGFR AMER. (test cod e = 69137) 55 ML/MIN/1.73 eGFR NON- AMER. (test code = 01839) 48 ML/MIN/1.73 CALC BUN/CREAT (test code = [...] 2219) 23 U/L Delfino OrtaHEPATITIS C REFLEX [id number] 00:00:00* Test Item Value Reference Range Interpretation Comme nts HEPATITIS C ANTIBODY (test c ode = 4675) NON-REACTIVE Delfino OrtaCBC W/AUTO [id number] 00:00:00* Test Item Value Reference Range Interpretation [...] K/UL COMMENTS (test code = 1016) (NOTE) Dlefino OrtaCOMPREHENSIVE METABOLIC [id number] 00:00:00* Test Item Value Reference Range Interpretation Comme nts GLUCOSE (test code = 2217) 92 MG/DL BUN (test code = 2208) 23 MG/DL CREATININE (test code = 2214) 1.27 MG/DL eGFR AMER. (test cod e = 21066) 55 ML/MIN/1.73 eGFR NON- AMER. (test code = 08927) 48 ML/MIN/1.73 CALC BUN/CREAT (test code = [...] 2219) 23 U/L Delfino OrtaHEPATITIS C REFLEX [id number] 00:00:00* Test Item Value Reference Range Interpretation Comme nts HEPATITIS C ANTIBODY (test c ode = 4675) NON-REACTIVE Delfino Endy YouCBC W/AUTO [id number] 00:00:00* Test Item Value Reference Range Interpretation [...] code = 1016) (NOTE) Delfino OrtaCOMPREHENSIVE METABOLIC [id number] 00:00:00* Test Item Value Reference Range Interpretation Comme nts GLUCOSE (test code = 2217) 92 MG/DL BUN (test code = 2208) 23 MG/DL CREATININE (test code = 2214) 1.27 MG/DL eGFR AMER. (test cod e = 13063) 55 ML/MIN/1.73 eGFR NON- AMER. (test code = 33355) 48 ML/MIN/1.73 CALC BUN/CREAT (test code = [...] 23 U/L Delfino Schumacher YouHEPATITIS C REFLEX [id number] 00:00:00* Test Item Value Reference Range Interpretation Comme nts HEPATITIS C ANTIBODY (test c ode = 4675) NON-REACTIVE Delfino Schumacher YouCBC W/AUTO [id number] 00:00:00* Test Item Value Reference Range Interpretation [...] code = 1016) (NOTE) Delfino OrtaCOMPREHENSIVE METABOLIC [id number] 00:00:00* Test Item Value Reference Range Interpretation Comme nts GLUCOSE (test code = 2217) 92 MG/DL BUN (test code = 2208) 23 MG/DL CREATININE (test code = 2214) 1.27 MG/DL eGFR AMER. (test cod e = 52621) 55 ML/MIN/1.73 eGFR NON- AMER. (test code = 54017) 48 ML/MIN/1.73 CALC BUN/CREAT (test code = [...] 2219) 23 U/L Delfino OrtaHEPATITIS C REFLEX [id number] 00:00:00* Test Item Value Reference Range Interpretation Comme nts HEPATITIS C ANTIBODY (test c ode = 4675) NON-REACTIVE Delfino OrtaCBC W/AUTO [id number] 00:00:00* Test Item Value Reference Range Interpretation [...] code = 1016) (NOTE) Delfino OrtaCOMPREHENSIVE METABOLIC [id number] 00:00:00* Test Item Value Reference Range Interpretation Comme nts GLUCOSE (test code = 2217) 92 MG/DL BUN (test code = 2208) 23 MG/DL CREATININE (test code = 2214) 1.27 MG/DL eGFR AMER. (test cod e = 04433) 55 ML/MIN/1.73 eGFR NON- AMER. (test code = 77421) 48 ML/MIN/1.73 CALC BUN/CREAT (test code = [...] 2219) 23 U/L Delfino OrtaHEPATITIS C REFLEX [id number] 00:00:00* Test Item Value Reference Range Interpretation Comme nts HEPATITIS C ANTIBODY (test c ode = 4675) NON-REACTIVE Delfino Schumacher YouCBC W/AUTO [id number] 00:00:00* Test Item Value Reference Range Interpretation [...] code = 1016) (NOTE) Delfino OrtaCOMPREHENSIVE METABOLIC [id number] 00:00:00* Test Item Value Reference Range Interpretation Comme nts GLUCOSE (test code = 2217) 92 MG/DL BUN (test code = 2208) 23 MG/DL CREATININE (test code = 2214) 1.27 MG/DL eGFR AMER. (test cod e = 12178) 55 ML/MIN/1.73 eGFR NON- AMER. (test code = 61175) 48 ML/MIN/1.73 CALC BUN/CREAT (test code = [...] 23 U/L Delfino F AustinHEPATITIS C REFLEX [id number] 00:00:00* Test Item Value Reference Range Interpretation Comme nts HEPATITIS C ANTIBODY (test c ode = 4632) NON-REACTIVE Delfino OrtaCBC W/AUTO [id number] 00:00:00* Test Item Value Reference Range Interpretation [...] code = 1016) (NOTE) Delfino OrtaCOMPREHENSIVE METABOLIC [id number] 00:00:00* Test Item Value Reference Range Interpretation Comme nts GLUCOSE (test code = 2217) 92 MG/DL BUN (test code = 2208) 23 MG/DL CREATININE (test code = 2214) 1.27 MG/DL eGFR AMER. (test cod e = 91942) 55 ML/MIN/1.73 eGFR NON- AMER. (test code = 36938) 48 ML/MIN/1.73 CALC BUN/CREAT (test code = [...] 2219) 23 U/L Delfino OrtaHEPATITIS C REFLEX [id number] 00:00:00* Test Item Value Reference Range Interpretation Comme nts HEPATITIS C ANTIBODY (test c ode = 4675) NON-REACTIVE Delfino OrtaCBC W/AUTO [id number] 00:00:00* Test Item Value Reference Range Interpretation [...] code = 1016) (NOTE) Delfino OrtaCOMPREHENSIVE METABOLIC [id number] 00:00:00* Test Item Value Reference Range Interpretation Comme nts GLUCOSE (test code = 2217) 92 MG/DL BUN (test code = 2208) 23 MG/DL CREATININE (test code = 2214) 1.27 MG/DL eGFR AMER. (test cod e = 87264) 55 ML/MIN/1.73 eGFR NON- AMER. (test code = 22788) 48 ML/MIN/1.73 CALC BUN/CREAT (test code = [...] 2219) 23 U/L Delfino OrtaHEPATITIS C REFLEX [id number] 00:00:00* Test Item Value Reference Range Interpretation Comme nts HEPATITIS C ANTIBODY (test c ode = 4675) NON-REACTIVE Delfino OrtaCBC W/AUTO [id number] 00:00:00* Test Item Value Reference Range Interpretation [...] code = 1016) (NOTE) Delfino OrtaCOMPREHENSIVE METABOLIC [id number] 00:00:00* Test Item Value Reference Range Interpretation Comme nts GLUCOSE (test code = 2217) 92 MG/DL BUN (test code = 2208) 23 MG/DL CREATININE (test code = 2214) 1.27 MG/DL eGFR AMER. (test cod e = 84743) 55 ML/MIN/1.73 eGFR NON- AMER. (test code = 18182) 48 ML/MIN/1.73 CALC BUN/CREAT (test code = [...] 2219) 23 U/L Delfino OrtaHEPATITIS C REFLEX [id number] 00:00:00* Test Item Value Reference Range Interpretation Comme nts HEPATITIS C ANTIBODY (test c ode = 4675) NON-REACTIVE Delfino OrtaCBC W/AUTO [id number] 00:00:00* Test Item Value Reference Range Interpretation [...] code = 1016) (NOTE) Delfino OrtaCOMPREHENSIVE METABOLIC [id number] 00:00:00* Test Item Value Reference Range Interpretation Comme nts GLUCOSE (test code = 2217) 92 MG/DL BUN (test code = 2208) 23 MG/DL CREATININE (test code = 2214) 1.27 MG/DL eGFR AMER. (test cod e = 32997) 55 ML/MIN/1.73 eGFR NON- AMER. (test code = 13455) 48 ML/MIN/1.73 CALC BUN/CREAT (test code = [...] 2219) 23 U/L Delfino OrtaHEPATITIS C REFLEX [id number] 00:00:00* Test Item Value Reference Range Interpretation Comme nts HEPATITIS C ANTIBODY (test c ode = 4675) NON-REACTIVE Delfino OrtaCBC W/AUTO [id number] 00:00:00* Test Item Value Reference Range Interpretation [...] code = 1016) (NOTE) Delfino OrtaCOMPREHENSIVE METABOLIC [id number] 00:00:00* Test Item Value Reference Range Interpretation Comme nts GLUCOSE (test code = 2217) 92 MG/DL BUN (test code = 2208) 23 MG/DL CREATININE (test code = 2214) 1.27 MG/DL eGFR AMER. (test cod e = 03092) 55 ML/MIN/1.73 eGFR NON- AMER. (test code = 17128) 48 ML/MIN/1.73 CALC BUN/CREAT (test code = [...] 2219) 23 U/L Delfino OrtaHEPATITIS C REFLEX [id number] 00:00:00* Test Item Value Reference Range Interpretation Comme nts HEPATITIS C ANTIBODY (test c ode = 4675) NON-REACTIVE Delfino OrtaCBC W/AUTO [id number] 00:00:00* Test Item Value Reference Range Interpretation [...] code = 1016) (NOTE) Delfino OrtaCOMPREHENSIVE METABOLIC [id number] 00:00:00* Test Item Value Reference Range Interpretation Comme nts GLUCOSE (test code = 2217) 92 MG/DL BUN (test code = 2208) 23 MG/DL CREATININE (test code = 2214) 1.27 MG/DL eGFR AMER. (test cod e = 05687) 55 ML/MIN/1.73 eGFR NON- AMER. (test code = 00112) 48 ML/MIN/1.73 CALC BUN/CREAT (test code = [...] 2219) 23 U/L Delfino OrtaHEPATITIS C REFLEX [id number] 00:00:00* Test Item Value Reference Range Interpretation Comme nts HEPATITIS C ANTIBODY (test c ode = 4675) NON-REACTIVE Delfino OrtaCBC W/AUTO [id number] 00:00:00* Test Item Value Reference Range Interpretation [...] code = 1016) (NOTE) Delfino OrtaCOMPREHENSIVE METABOLIC [id number] 00:00:00* Test Item Value Reference Range Interpretation Comme nts GLUCOSE (test code = 2217) 92 MG/DL BUN (test code = 2208) 23 MG/DL CREATININE (test code = 2214) 1.27 MG/DL eGFR AMER. (test cod e = 23770) 55 ML/MIN/1.73 eGFR NON- AMER. (test code = 71202) 48 ML/MIN/1.73 CALC BUN/CREAT (test code = [...] 2219) 23 U/L Delfino OrtaHEPATITIS C REFLEX [id number] 00:00:00* Test Item Value Reference Range Interpretation Comme nts HEPATITIS C ANTIBODY (test c ode = 4604) NON-REACTIVE Delfino OrtaCBC W/AUTO [id number] 00:00:00* Test Item Value Reference Range Interpretation [...] code = 1016) (NOTE) Delfino OrtaLIONC W/AUTO [id number] 00:00:00* Test Item Value Reference Range Interpretation [...] code = 1016) (NOTE) Delfino OrtaCOMPREHENSIVE METABOLIC [id number] 00:00:00* Test Item Value Reference Range Interpretation Comme nts GLUCOSE (test code = 2217) 92 MG/DL BUN (test code = 2208) 23 MG/DL CREATININE (test code = 2214) 1.27 MG/DL eGFR AMER. (test cod e = 30173) 55 ML/MIN/1.73 eGFR NON- AMER. (test code = 73976) 48 ML/MIN/1.73 CALC BUN/CREAT (test code = [...] (test code = 2219) 23 U/L Delfino OrtaBAPTIST HEALTH PADUCA[facility] W/AUTO [id number] 00:00:00* Test Item Value Reference Range Interpretation [...] (test code = 1016) (NOTE) COMPREHENSIVE METABOLIC [id number] 00:00:00* Test Item Value Reference Range Interpretation Comme nts GLUCOSE (test code = 2217) 92 MG/DL BUN (test code = 2208) 23 MG/DL CREATININE (test code = 2214) 1.27 MG/DL eGFR AMER. (test cod e = 20757) 55 ML/MIN/1.73 eGFR NON- AMER. (test code = 14837) 48 ML/MIN/1.73 CALC BUN/CREAT (test code = [...] (test code = 2219) 23 U/L LIPID [id number] 00:00:00* Test Item Value Reference Range Interpretation Comme nts CHOLESTEROL (test code = 2210) 211 MG/DL TRIGLYCERIDES (test code = 2232) 52 MG/DL HDL CHOLESTEROL (test code = 2220) 90 MG/DL CALC LDL CHOL (test code = 2237) 111 MG/DL RISK RATIO LDL/HDL (test cod e = 2238) 1.23 RATIO CBC W/AUTO [id number] 00:00:00* Test Item Value Reference Range Interpretation [...] (test code = 1016) (NOTE) COMPREHENSIVE METABOLIC [id number] 00:00:00* Test Item Value Reference Range Interpretation Comme nts GLUCOSE (test code = 2217) 88 MG/DL BUN (test code = 2208) 24 MG/DL CREATININE (test code = 2214) 0.94 MG/DL eGFR AMER. (test cod e = 53407) 80 ML/MIN/1.73 eGFR NON- AMER. (test code = 44150) 69 ML/MIN/1.73 CALC BUN/CREAT (test code = [...] (test code = 2219) 10 U/L LIPID [id number] 00:00:00* Test Item Value Reference Range Interpretation Comme nts CHOLESTEROL (test code = 2210) 211 MG/DL TRIGLYCERIDES (test code = 2232) 52 MG/DL HDL CHOLESTEROL (test code = 2220) 90 MG/DL CALC LDL CHOL (test code = 2237) 111 MG/DL RISK RATIO LDL/HDL (test cod e = 2238) 1.23 RATIO CBC W/AUTO [id number] 00:00:00* Test Item Value Reference Range Interpretation [...] (test code = 1016) (NOTE) COMPREHENSIVE METABOLIC [id number] 00:00:00* Test Item Value Reference Range Interpretation Comme nts GLUCOSE (test code = 2217) 88 MG/DL BUN (test code = 2208) 24 MG/DL CREATININE (test code = 2214) 0.94 MG/DL eGFR AMER. (test cod e = 38488) 80 ML/MIN/1.73 eGFR NON- AMER. (test code = 35776) 69 ML/MIN/1.73 CALC BUN/CREAT (test code = [...] (test code = 2219) 10 U/L LIPID [id number] 00:00:00* Test Item Value Reference Range Interpretation Comme nts CHOLESTEROL (test code = 2210) 211 MG/DL TRIGLYCERIDES (test code = 2232) 52 MG/DL HDL CHOLESTEROL (test code = 2220) 90 MG/DL CALC LDL CHOL (test code = 2237) 111 MG/DL RISK RATIO LDL/HDL (test cod e = 2238) 1.23 RATIO CBC W/AUTO [id number] 00:00:00* Test Item Value Reference Range Interpretation [...] (test code = 1016) (NOTE) COMPREHENSIVE METABOLIC [id number] 00:00:00* Test Item Value Reference Range Interpretation Comme nts GLUCOSE (test code = 2217) 88 MG/DL BUN (test code = 2208) 24 MG/DL CREATININE (test code = 2214) 0.94 MG/DL eGFR AMER. (test cod e = 38073) 80 ML/MIN/1.73 eGFR NON- AMER. (test code = 81567) 69 ML/MIN/1.73 CALC BUN/CREAT (test code = [...] (test code = 2219) 10 U/L LIPID [id number] 00:00:00* Test Item Value Reference Range Interpretation Comme nts CHOLESTEROL (test code = 2210) 211 MG/DL TRIGLYCERIDES (test code = 2232) 52 MG/DL HDL CHOLESTEROL (test code = 2220) 90 MG/DL CALC LDL CHOL (test code = 2237) 111 MG/DL RISK RATIO LDL/HDL (test cod e = 2238) 1.23 RATIO COMPREHENSIVE METABOLIC [id number] 00:00:00* Test Item Value Reference Range Interpretation Comme nts GLUCOSE (test code = 2217) 88 MG/DL BUN (test code = 2208) 24 MG/DL CREATININE (test code = 2214) 0.94 MG/DL eGFR AMER. (test cod e = 95245) 80 ML/MIN/1.73 eGFR NON- AMER. (test code = 33132) 69 ML/MIN/1.73 CALC BUN/CREAT (test code = [...] = 2219) 10 U/L Delfino F AustinLIPID [id number] 00:00:00* Test Item Value Reference Range Interpretation Comme nts CHOLESTEROL (test code = 2210) 211 MG/DL TRIGLYCERIDES (test code = 2232) 52 MG/DL HDL CHOLESTEROL (test code = 2220) 90 MG/DL CALC LDL CHOL (test code = 2237) 111 MG/DL RISK RATIO LDL/HDL (test cod e = 2238) 1.23 RATIO Delfino Schumacher [facility] W/AUTO [id number] 00:00:00* Test Item Value Reference Range Interpretation [...] (test code = 1016) (NOTE) Delfino Schumacher [facility] W/AUTO [id number] 00:00:00* Test Item Value Reference Range Interpretation [...] code = 1016) (NOTE) Delfino OrtaCOMPREHENSIVE METABOLIC [id number] 00:00:00* Test Item Value Reference Range Interpretation Comme nts GLUCOSE (test code = 2217) 88 MG/DL BUN (test code = 2208) 24 MG/DL CREATININE (test code = 2214) 0.94 MG/DL eGFR AMER. (test cod e = 52086) 80 ML/MIN/1.73 eGFR NON- AMER. (test code = 01340) 69 ML/MIN/1.73 CALC BUN/CREAT (test code = [...] code = 2219) 10 U/L Delfino OrtaLIPID [id number] 00:00:00* Test Item Value Reference Range Interpretation Comme nts CHOLESTEROL (test code = 2210) 211 MG/DL TRIGLYCERIDES (test code = 2232) 52 MG/DL HDL CHOLESTEROL (test code = 2220) 90 MG/DL CALC LDL CHOL (test code = 2237) 111 MG/DL RISK RATIO LDL/HDL (test cod e = 2238) 1.23 RATIO Delfino OrtaCBC W/AUTO [id number] 00:00:00* Test Item Value Reference Range Interpretation [...] code = 1016) (NOTE) Delfino OrtaCOMPREHENSIVE METABOLIC [id number] 00:00:00* Test Item Value Reference Range Interpretation Comme nts GLUCOSE (test code = 2217) 88 MG/DL BUN (test code = 2208) 24 MG/DL CREATININE (test code = 2214) 0.94 MG/DL eGFR AMER. (test cod e = 00155) 80 ML/MIN/1.73 eGFR NON- AMER. (test code = 70137) 69 ML/MIN/1.73 CALC BUN/CREAT (test code = [...] code = 2219) 10 U/L Delfino OrtaLIPID [id number] 00:00:00* Test Item Value Reference Range Interpretation Comme nts CHOLESTEROL (test code = 2210) 211 MG/DL TRIGLYCERIDES (test code = 2232) 52 MG/DL HDL CHOLESTEROL (test code = 2220) 90 MG/DL CALC LDL CHOL (test code = 2237) 111 MG/DL RISK RATIO LDL/HDL (test cod e = 2238) 1.23 RATIO Delfino OrtaCBC W/AUTO [id number] 00:00:00* Test Item Value Reference Range Interpretation [...] code = 1016) (NOTE) Delfino OrtaCOMPREHENSIVE METABOLIC [id number] 00:00:00* Test Item Value Reference Range Interpretation Comme nts GLUCOSE (test code = 2217) 88 MG/DL BUN (test code = 2208) 24 MG/DL CREATININE (test code = 2214) 0.94 MG/DL eGFR AMER. (test cod e = 34420) 80 ML/MIN/1.73 eGFR NON- AMER. (test code = 71204) 69 ML/MIN/1.73 CALC BUN/CREAT (test code = [...] code = 2219) 10 U/L Delfino OrtaLIPID [id number] 00:00:00* Test Item Value Reference Range Interpretation Comme nts CHOLESTEROL (test code = 2210) 211 MG/DL TRIGLYCERIDES (test code = 2232) 52 MG/DL HDL CHOLESTEROL (test code = 2220) 90 MG/DL CALC LDL CHOL (test code = 2237) 111 MG/DL RISK RATIO LDL/HDL (test cod e = 2238) 1.23 RATIO Delfino OrtaCOMPREHENSIVE METABOLIC [id number] 00:00:00* Test Item Value Reference Range Interpretation Comme nts GLUCOSE (test code = 2217) 88 MG/DL BUN (test code = 2208) 24 MG/DL CREATININE (test code = 2214) 0.94 MG/DL eGFR AMER. (test cod e = 51770) 80 ML/MIN/1.73 eGFR NON- AMER. (test code = 98085) 69 ML/MIN/1.73 CALC BUN/CREAT (test code = [...] = 2219) 10 U/L Delfino Schumacher [place]LIP[place] [id number] 00:00:00* Test Item Value Reference Range Interpretation Comme nts CHOLESTEROL (test code = 2210) 211 MG/DL TRIGLYCERIDES (test code = 2232) 52 MG/DL HDL CHOLESTEROL (test code = 2220) 90 MG/DL CALC LDL CHOL (test code = 2237) 111 MG/DL RISK RATIO LDL/HDL (test cod e = 2238) 1.23 RATIO Delfino OrtaCBC W/AUTO [id number] 00:00:00* Test Item Value Reference Range Interpretation [...] = 1016) (NOTE) Delfino Schumacher YouCOMPREHENSIVE METABOLIC [id number] 00:00:00* Test Item Value Reference Range Interpretation Comme nts GLUCOSE (test code = 2217) 88 MG/DL BUN (test code = 2208) 24 MG/DL CREATININE (test code = 2214) 0.94 MG/DL eGFR AMER. (test cod e = 26723) 80 ML/MIN/1.73 eGFR NON- AMER. (test code = 46627) 69 ML/MIN/1.73 CALC BUN/CREAT (test code = [...] code = 2219) 10 U/L Delfino OrtaLIPID [id number] 00:00:00* Test Item Value Reference Range Interpretation Comme nts CHOLESTEROL (test code = 2210) 211 MG/DL TRIGLYCERIDES (test code = 2232) 52 MG/DL HDL CHOLESTEROL (test code = 2220) 90 MG/DL CALC LDL CHOL (test code = 2237) 111 MG/DL RISK RATIO LDL/HDL (test cod e = 2238) 1.23 RATIO Delfino OrtaCBC W/AUTO [id number] 00:00:00* Test Item Value Reference Range Interpretation [...] code = 1016) (NOTE) Delfino OrtaCOMPREHENSIVE METABOLIC [id number] 00:00:00* Test Item Value Reference Range Interpretation Comme nts GLUCOSE (test code = 2217) 88 MG/DL BUN (test code = 2208) 24 MG/DL CREATININE (test code = 2214) 0.94 MG/DL eGFR AMER. (test cod e = 83620) 80 ML/MIN/1.73 eGFR NON- AMER. (test code = 64810) 69 ML/MIN/1.73 CALC BUN/CREAT (test code = [...] code = 2219) 10 U/L Delfino Schumacher [place] [id number] 00:00:00* Test Item Value Reference Range Interpretation Comme nts CHOLESTEROL (test code = 2210) 211 MG/DL TRIGLYCERIDES (test code = 2232) 52 MG/DL HDL CHOLESTEROL (test code = 2220) 90 MG/DL CALC LDL CHOL (test code = 2237) 111 MG/DL RISK RATIO LDL/HDL (test cod e = 2238) 1.23 RATIO Delfino OrtaCBC W/AUTO [id number] 00:00:00* Test Item Value Reference Range Interpretation [...] code = 1016) (NOTE) Delfino OrtaCOMPREHENSIVE METABOLIC [id number] 00:00:00* Test Item Value Reference Range Interpretation Comme nts GLUCOSE (test code = 2217) 88 MG/DL BUN (test code = 2208) 24 MG/DL CREATININE (test code = 2214) 0.94 MG/DL eGFR AMER. (test cod e = 33365) 80 ML/MIN/1.73 eGFR NON- AMER. (test code = 85545) 69 ML/MIN/1.73 CALC BUN/CREAT (test code = [...] code = 2219) 10 U/L Delfino OrtaLIPID [id number] 00:00:00* Test Item Value Reference Range Interpretation Comme nts CHOLESTEROL (test code = 2210) 211 MG/DL TRIGLYCERIDES (test code = 2232) 52 MG/DL HDL CHOLESTEROL (test code = 2220) 90 MG/DL CALC LDL CHOL (test code = 2237) 111 MG/DL RISK RATIO LDL/HDL (test cod e = 2238) 1.23 RATIO Delfino OrtaCBC W/AUTO [id number] 00:00:00* Test Item Value Reference Range Interpretation [...] code = 1016) (NOTE) Delfino OrtaCOMPREHENSIVE METABOLIC [id number] 00:00:00* Test Item Value Reference Range Interpretation Comme nts GLUCOSE (test code = 2217) 88 MG/DL BUN (test code = 2208) 24 MG/DL CREATININE (test code = 2214) 0.94 MG/DL eGFR AMER. (test cod e = 96259) 80 ML/MIN/1.73 eGFR NON- AMER. (test code = 32132) 69 ML/MIN/1.73 CALC BUN/CREAT (test code = [...] code = 2219) 10 U/L Delfino OrtaLIPID [id number] 00:00:00* Test Item Value Reference Range Interpretation Comme nts CHOLESTEROL (test code = 2210) 211 MG/DL TRIGLYCERIDES (test code = 2232) 52 MG/DL HDL CHOLESTEROL (test code = 2220) 90 MG/DL CALC LDL CHOL (test code = 2237) 111 MG/DL RISK RATIO LDL/HDL (test cod e = 2238) 1.23 RATIO Delfino OrtaCBC W/AUTO [id number] 00:00:00* Test Item Value Reference Range Interpretation [...] code = 1016) (NOTE) Delfino OrtaCOMPREHENSIVE METABOLIC [id number] 00:00:00* Test Item Value Reference Range Interpretation Comme nts GLUCOSE (test code = 2217) 88 MG/DL BUN (test code = 2208) 24 MG/DL CREATININE (test code = 2214) 0.94 MG/DL eGFR AMER. (test cod e = 62984) 80 ML/MIN/1.73 eGFR NON- AMER. (test code = 19441) 69 ML/MIN/1.73 CALC BUN/CREAT (test code = [...] code = 2219) 10 U/L Delfino OrtaLIPID [id number] 00:00:00* Test Item Value Reference Range Interpretation Comme nts CHOLESTEROL (test code = 2210) 211 MG/DL TRIGLYCERIDES (test code = 2232) 52 MG/DL HDL CHOLESTEROL (test code = 2220) 90 MG/DL CALC LDL CHOL (test code = 2237) 111 MG/DL RISK RATIO LDL/HDL (test cod e = 2238) 1.23 RATIO Delfino OrtaCBC W/AUTO [id number] 00:00:00* Test Item Value Reference Range Interpretation [...] code = 1016) (NOTE) Delfino OrtaCOMPREHENSIVE METABOLIC [id number] 00:00:00* Test Item Value Reference Range Interpretation Comme nts GLUCOSE (test code = 2217) 88 MG/DL BUN (test code = 2208) 24 MG/DL CREATININE (test code = 2214) 0.94 MG/DL eGFR AMER. (test cod e = 03060) 80 ML/MIN/1.73 eGFR NON- AMER. (test code = 71989) 69 ML/MIN/1.73 CALC BUN/CREAT (test code = [...] code = 2219) 10 U/L Delfino OrtaLIPID [id number] 00:00:00* Test Item Value Reference Range Interpretation Comme nts CHOLESTEROL (test code = 2210) 211 MG/DL TRIGLYCERIDES (test code = 2232) 52 MG/DL HDL CHOLESTEROL (test code = 2220) 90 MG/DL CALC LDL CHOL (test code = 2237) 111 MG/DL RISK RATIO LDL/HDL (test cod e = 2238) 1.23 RATIO Delfino OrtaCBC W/AUTO [id number] 00:00:00* Test Item Value Reference Range Interpretation [...] code = 1016) (NOTE) Delfino OrtaCOMPREHENSIVE METABOLIC [id number] 00:00:00* Test Item Value Reference Range Interpretation Comme nts GLUCOSE (test code = 2217) 88 MG/DL BUN (test code = 2208) 24 MG/DL CREATININE (test code = 2214) 0.94 MG/DL eGFR AMER. (test cod e = 75590) 80 ML/MIN/1.73 eGFR NON- AMER. (test code = 31575) 69 ML/MIN/1.73 CALC BUN/CREAT (test code = [...] code = 2219) 10 U/L Delfino OrtaLIPID [id number] 00:00:00* Test Item Value Reference Range Interpretation Comme nts CHOLESTEROL (test code = 2210) 211 MG/DL TRIGLYCERIDES (test code = 2232) 52 MG/DL HDL CHOLESTEROL (test code = 2220) 90 MG/DL CALC LDL CHOL (test code = 2237) 111 MG/DL RISK RATIO LDL/HDL (test cod e = 2238) 1.23 RATIO Delfino OrtaCBC W/AUTO [id number] 00:00:00* Test Item Value Reference Range Interpretation [...] code = 1016) (NOTE) Delfino OrtaCOMPREHENSIVE METABOLIC [id number] 00:00:00* Test Item Value Reference Range Interpretation Comme nts GLUCOSE (test code = 2217) 88 MG/DL BUN (test code = 2208) 24 MG/DL CREATININE (test code = 2214) 0.94 MG/DL eGFR AMER. (test cod e = 78224) 80 ML/MIN/1.73 eGFR NON- AMER. (test code = 88182) 69 ML/MIN/1.73 CALC BUN/CREAT (test code = [...] code = 2219) 10 U/L Delfino OrtaLIPID [id number] 00:00:00* Test Item Value Reference Range Interpretation Comme nts CHOLESTEROL (test code = 2210) 211 MG/DL TRIGLYCERIDES (test code = 2232) 52 MG/DL HDL CHOLESTEROL (test code = 2220) 90 MG/DL CALC LDL CHOL (test code = 2237) 111 MG/DL RISK RATIO LDL/HDL (test cod e = 2238) 1.23 RATIO Delfino OrtaCBC W/AUTO [id number] 00:00:00* Test Item Value Reference Range Interpretation [...] = 1016) (NOTE) Delfino Schumacher YouCOMPREHENSIVE METABOLIC [id number] 00:00:00* Test Item Value Reference Range Interpretation Comme nts GLUCOSE (test code = 2217) 88 MG/DL BUN (test code = 2208) 24 MG/DL CREATININE (test code = 2214) 0.94 MG/DL eGFR AMER. (test cod e = 94796) 80 ML/MIN/1.73 eGFR NON- AMER. (test code = 53568) 69 ML/MIN/1.73 CALC BUN/CREAT (test code = [...] code = 2219) 10 U/L Delfino OrtaLIPID [id number] 00:00:00* Test Item Value Reference Range Interpretation Comme nts CHOLESTEROL (test code = 2210) 211 MG/DL TRIGLYCERIDES (test code = 2232) 52 MG/DL HDL CHOLESTEROL (test code = 2220) 90 MG/DL CALC LDL CHOL (test code = 2237) 111 MG/DL RISK RATIO LDL/HDL (test cod e = 2238) 1.23 RATIO Delfino OrtaCBC W/AUTO [id number] 00:00:00* Test Item Value Reference Range Interpretation [...] code = 1016) (NOTE) Delfino OrtaCOMPREHENSIVE METABOLIC [id number] 00:00:00* Test Item Value Reference Range Interpretation Comme nts GLUCOSE (test code = 2217) 88 MG/DL BUN (test code = 2208) 24 MG/DL CREATININE (test code = 2214) 0.94 MG/DL eGFR AMER. (test cod e = 23740) 80 ML/MIN/1.73 eGFR NON- AMER. (test code = 20075) 69 ML/MIN/1.73 CALC BUN/CREAT (test code = [...] code = 2219) 10 U/L Delfino OrtaLIPID [id number] 00:00:00* Test Item Value Reference Range Interpretation Comme nts CHOLESTEROL (test code = 2210) 211 MG/DL TRIGLYCERIDES (test code = 2232) 52 MG/DL HDL CHOLESTEROL (test code = 2220) 90 MG/DL CALC LDL CHOL (test code = 2237) 111 MG/DL RISK RATIO LDL/HDL (test cod e = 2238) 1.23 RATIO Delfino OrtaCBC W/AUTO [id number] 00:00:00* Test Item Value Reference Range Interpretation [...] = 1016) (NOTE) Delfino Schumacher YouCOMPREHENSIVE METABOLIC [id number] 00:00:00* Test Item Value Reference Range Interpretation Comme nts GLUCOSE (test code = 2217) 88 MG/DL BUN (test code = 2208) 24 MG/DL CREATININE (test code = 2214) 0.94 MG/DL eGFR AMER. (test cod e = ) 80 ML/MIN/1.73 eGFR NON- AMER. (test code = 48083) 69 ML/MIN/1.73 CALC BUN/CREAT (test code = [...] code = 2219) 10 U/L Delfino OrtaLIPID [id number] 00:00:00* Test Item Value Reference Range Interpretation Comme nts CHOLESTEROL (test code = 2210) 211 MG/DL TRIGLYCERIDES (test code = 2232) 52 MG/DL HDL CHOLESTEROL (test code = 2220) 90 MG/DL CALC LDL CHOL (test code = 2237) 111 MG/DL RISK RATIO LDL/HDL (test cod e = 2238) 1.23 RATIO Delfino OrtaCBC W/AUTO [id number] 00:00:00* Test Item Value Reference Range Interpretation [...] code = 1016) (NOTE) Delfino OrtaCOMPREHENSIVE METABOLIC [id number] 00:00:00* Test Item Value Reference Range Interpretation Comme nts GLUCOSE (test code = 2217) 88 MG/DL BUN (test code = 2208) 24 MG/DL CREATININE (test code = 2214) 0.94 MG/DL eGFR AMER. (test cod e = 85520) 80 ML/MIN/1.73 eGFR NON- AMER. (test code = 45958) 69 ML/MIN/1.73 CALC BUN/CREAT (test code = [...] code = 2219) 10 U/L Delfino OrtaLIPID [id number] 00:00:00* Test Item Value Reference Range Interpretation Comme nts CHOLESTEROL (test code = 2210) 211 MG/DL TRIGLYCERIDES (test code = 2232) 52 MG/DL HDL CHOLESTEROL (test code = 2220) 90 MG/DL CALC LDL CHOL (test code = 2237) 111 MG/DL RISK RATIO LDL/HDL (test cod e = 2238) 1.23 RATIO Delfino OrtaCBC W/AUTO [id number] 00:00:00* Test Item Value Reference Range Interpretation [...] = 1016) (NOTE) Delfino Schumacher YouCOMPREHENSIVE METABOLIC [id number] 00:00:00* Test Item Value Reference Range Interpretation Comme nts GLUCOSE (test code = 2217) 88 MG/DL BUN (test code = 2208) 24 MG/DL CREATININE (test code = 2214) 0.94 MG/DL eGFR AMER. (test cod e = 90110) 80 ML/MIN/1.73 eGFR NON- AMER. (test code = 53586) 69 ML/MIN/1.73 CALC BUN/CREAT (test code = [...] code = 2219) 10 U/L Delfino OrtaLIPID [id number] 00:00:00* Test Item Value Reference Range Interpretation Comme nts CHOLESTEROL (test code = 2210) 211 MG/DL TRIGLYCERIDES (test code = 2232) 52 MG/DL HDL CHOLESTEROL (test code = 2220) 90 MG/DL CALC LDL CHOL (test code = 2237) 111 MG/DL RISK RATIO LDL/HDL (test cod e = 2238) 1.23 RATIO Delfino OrtaCBC W/AUTO [id number] 00:00:00* Test Item Value Reference Range Interpretation [...] code = 1016) (NOTE) Delfino OrtaCOMPREHENSIVE METABOLIC [id number] 00:00:00* Test Item Value Reference Range Interpretation Comme nts GLUCOSE (test code = 2217) 88 MG/DL BUN (test code = 2208) 24 MG/DL CREATININE (test code = 2214) 0.94 MG/DL eGFR AMER. (test cod e = 97297) 80 ML/MIN/1.73 eGFR NON- AMER. (test code = 42197) 69 ML/MIN/1.73 CALC BUN/CREAT (test code = [...] code = 2219) 10 U/L Delfino OrtaLIPID [id number] 00:00:00* Test Item Value Reference Range Interpretation Comme nts CHOLESTEROL (test code = 2210) 211 MG/DL TRIGLYCERIDES (test code = 2232) 52 MG/DL HDL CHOLESTEROL (test code = 2220) 90 MG/DL CALC LDL CHOL (test code = 2237) 111 MG/DL RISK RATIO LDL/HDL (test cod e = 2238) 1.23 RATIO Delfino OrtaCBC W/AUTO [id number] 00:00:00* Test Item Value Reference Range Interpretation [...] COMMENTS (test code = 1016) (NOTE) Delfion Schumacher YouCOMPREHENSIVE METABOLIC [id number] 00:00:00* Test Item Value Reference Range Interpretation Comme nts GLUCOSE (test code = 2217) 88 MG/DL BUN (test code = 2208) 24 MG/DL CREATININE (test code = 2214) 0.94 MG/DL eGFR AMER. (test cod e = 32405) 80 ML/MIN/1.73 eGFR NON- AMER. (test code = 36346) 69 ML/MIN/1.73 CALC BUN/CREAT (test code = [...] code = 2219) 10 U/L Delfino OrtaLIPID [id number] 00:00:00* Test Item Value Reference Range Interpretation Comme nts CHOLESTEROL (test code = 2210) 211 MG/DL TRIGLYCERIDES (test code = 2232) 52 MG/DL HDL CHOLESTEROL (test code = 2220) 90 MG/DL CALC LDL CHOL (test code = 2237) 111 MG/DL RISK RATIO LDL/HDL (test cod e = 2238) 1.23 RATIO Delfino OrtaCBC W/AUTO [id number] 00:00:00* Test Item Value Reference Range Interpretation [...] code = 1016) (NOTE) Delfino OrtaCOMPREHENSIVE METABOLIC [id number] 00:00:00* Test Item Value Reference Range Interpretation Comme nts GLUCOSE (test code = 2217) 88 MG/DL BUN (test code = 2208) 24 MG/DL CREATININE (test code = 2214) 0.94 MG/DL eGFR AMER. (test cod e = 43933) 80 ML/MIN/1.73 eGFR NON- AMER. (test code = 28145) 69 ML/MIN/1.73 CALC BUN/CREAT (test code = [...] code = 2219) 10 U/L Delfino OrtaLIPID [id number] 00:00:00* Test Item Value Reference Range Interpretation Comme nts CHOLESTEROL (test code = 2210) 211 MG/DL TRIGLYCERIDES (test code = 2232) 52 MG/DL HDL CHOLESTEROL (test code = 2220) 90 MG/DL CALC LDL CHOL (test code = 2237) 111 MG/DL RISK RATIO LDL/HDL (test cod e = 2238) 1.23 RATIO Delfino OrtaCBC W/AUTO [id number] 00:00:00* Test Item Value Reference Range Interpretation [...] = 1016) (NOTE) Delfino Endy YouCOMPREHENSIVE METABOLIC [id number] 00:00:00* Test Item Value Reference Range Interpretation Comme nts GLUCOSE (test code = 2217) 88 MG/DL BUN (test code = 2208) 24 MG/DL CREATININE (test code = 2214) 0.94 MG/DL eGFR AMER. (test cod e = 44497) 80 ML/MIN/1.73 eGFR NON- AMER. (test code = 09722) 69 ML/MIN/1.73 CALC BUN/CREAT (test code = [...] = 2219) 10 U/L Delfino Schumacher YouLIPID [id number] 00:00:00* Test Item Value Reference Range Interpretation Comme nts CHOLESTEROL (test code = 2210) 211 MG/DL TRIGLYCERIDES (test code = 2232) 52 MG/DL HDL CHOLESTEROL (test code = 2220) 90 MG/DL CALC LDL CHOL (test code = 2237) 111 MG/DL RISK RATIO LDL/HDL (test cod e = 2238) 1.23 RATIO Delfino rOtaCBC W/AUTO [id number] 00:00:00* Test Item Value Reference Range Interpretation [...] = 1016) (NOTE) Delfino Schumacher YouCOMPREHENSIVE METABOLIC [id number] 00:00:00* Test Item Value Reference Range Interpretation Comme nts GLUCOSE (test code = 2217) 88 MG/DL BUN (test code = 2208) 24 MG/DL CREATININE (test code = 2214) 0.94 MG/DL eGFR AMER. (test cod e = 98523) 80 ML/MIN/1.73 eGFR NON- AMER. (test code = 16873) 69 ML/MIN/1.73 CALC BUN/CREAT (test code = [...] code = 2219) 10 U/L Delfino OrtaLIPID [id number] 00:00:00* Test Item Value Reference Range Interpretation Comme nts CHOLESTEROL (test code = 2210) 211 MG/DL TRIGLYCERIDES (test code = 2232) 52 MG/DL HDL CHOLESTEROL (test code = 2220) 90 MG/DL CALC LDL CHOL (test code = 2237) 111 MG/DL RISK RATIO LDL/HDL (test cod e = 2238) 1.23 RATIO Delfino OrtaCBC W/AUTO [id number] 00:00:00* Test Item Value Reference Range Interpretation [...] code = 1016) (NOTE) Delfino OrtaCOMPREHENSIVE METABOLIC [id number] 00:00:00* Test Item Value Reference Range Interpretation Comme nts GLUCOSE (test code = 2217) 88 MG/DL BUN (test code = 2208) 24 MG/DL CREATININE (test code = 2214) 0.94 MG/DL eGFR AMER. (test cod e = 30814) 80 ML/MIN/1.73 eGFR NON- AMER. (test code = 76356) 69 ML/MIN/1.73 CALC BUN/CREAT (test code = [...] code = 2219) 10 U/L Delfino OrtaLIPID [id number] 00:00:00* Test Item Value Reference Range Interpretation Comme nts CHOLESTEROL (test code = 2210) 211 MG/DL TRIGLYCERIDES (test code = 2232) 52 MG/DL HDL CHOLESTEROL (test code = 2220) 90 MG/DL CALC LDL CHOL (test code = 2237) 111 MG/DL RISK RATIO LDL/HDL (test cod e = 2238) 1.23 RATIO Delfino Schumacher YouCBC W/AUTO [id number] 00:00:00* Test Item Value Reference Range Interpretation [...] code = 1016) (NOTE) Delfino OrtaCOMPREHENSIVE METABOLIC [id number] 00:00:00* Test Item Value Reference Range Interpretation Comme nts GLUCOSE (test code = 2217) 88 MG/DL BUN (test code = 2208) 24 MG/DL CREATININE (test code = 2214) 0.94 MG/DL eGFR AMER. (test cod e = 48328) 80 ML/MIN/1.73 eGFR NON- AMER. (test code = 77702) 69 ML/MIN/1.73 CALC BUN/CREAT (test code = [...] code = 2219) 10 U/L Delfino OrtaLIPID [id number] 00:00:00* Test Item Value Reference Range Interpretation Comme nts CHOLESTEROL (test code = 2210) 211 MG/DL TRIGLYCERIDES (test code = 2232) 52 MG/DL HDL CHOLESTEROL (test code = 2220) 90 MG/DL CALC LDL CHOL (test code = 2237) 111 MG/DL RISK RATIO LDL/HDL (test cod e = 2238) 1.23 RATIO Delfino OrtaCBC W/AUTO [id number] 00:00:00* Test Item Value Reference Range Interpretation [...] code = 1016) (NOTE) Delfino OrtaCOMPREHENSIVE METABOLIC [id number] 00:00:00* Test Item Value Reference Range Interpretation Comme nts GLUCOSE (test code = 2217) 88 MG/DL BUN (test code = 2208) 24 MG/DL CREATININE (test code = 2214) 0.94 MG/DL eGFR AMER. (test cod e = 24046) 80 ML/MIN/1.73 eGFR NON- AMER. (test code = 79517) 69 ML/MIN/1.73 CALC BUN/CREAT (test code = [...] code = 2219) 10 U/L Delfino OrtaLIPID [id number] 00:00:00* Test Item Value Reference Range Interpretation Comme nts CHOLESTEROL (test code = 2210) 211 MG/DL TRIGLYCERIDES (test code = 2232) 52 MG/DL HDL CHOLESTEROL (test code = 2220) 90 MG/DL CALC LDL CHOL (test code = 2237) 111 MG/DL RISK RATIO LDL/HDL (test cod e = 2238) 1.23 RATIO Delfino OrtaCBC W/AUTO [id number] 00:00:00* Test Item Value Reference Range Interpretation [...] = 1016) (NOTE) Delfino Schumacher YouCOMPREHENSIVE METABOLIC [id number] 00:00:00* Test Item Value Reference Range Interpretation Comme nts GLUCOSE (test code = 2217) 88 MG/DL BUN (test code = 2208) 24 MG/DL CREATININE (test code = 2214) 0.94 MG/DL eGFR AMER. (test cod e = 90993) 80 ML/MIN/1.73 eGFR NON- AMER. (test code = 84142) 69 ML/MIN/1.73 CALC BUN/CREAT (test code = [...] code = 2219) 10 U/L Delfino OrtaLIPID [id number] 00:00:00* Test Item Value Reference Range Interpretation Comme nts CHOLESTEROL (test code = 2210) 211 MG/DL TRIGLYCERIDES (test code = 2232) 52 MG/DL HDL CHOLESTEROL (test code = 2220) 90 MG/DL CALC LDL CHOL (test code = 2237) 111 MG/DL RISK RATIO LDL/HDL (test cod e = 2238) 1.23 RATIO Delfino OrtaCBC W/AUTO [id number] 00:00:00* Test Item Value Reference Range Interpretation [...] code = 1016) (NOTE) Delfino OrtaCOMPREHENSIVE METABOLIC [id number] 00:00:00* Test Item Value Reference Range Interpretation Comme nts GLUCOSE (test code = 2217) 88 MG/DL BUN (test code = 2208) 24 MG/DL CREATININE (test code = 2214) 0.94 MG/DL eGFR AMER. (test cod e = 37586) 80 ML/MIN/1.73 eGFR NON- AMER. (test code = 65893) 69 ML/MIN/1.73 CALC BUN/CREAT (test code = [...] = 2219) 10 U/L Delfino Schumacher YouLIPID [id number] 00:00:00* Test Item Value Reference Range Interpretation Comme nts CHOLESTEROL (test code = 2210) 211 MG/DL TRIGLYCERIDES (test code = 2232) 52 MG/DL HDL CHOLESTEROL (test code = 2220) 90 MG/DL CALC LDL CHOL (test code = 2237) 111 MG/DL RISK RATIO LDL/HDL (test cod e = 2238) 1.23 RATIO Delfino OrtaCBC W/AUTO [id number] 00:00:00* Test Item Value Reference Range Interpretation [...] code = 1016) (NOTE) Delfino OrtaCOMPREHENSIVE METABOLIC [id number] 00:00:00* Test Item Value Reference Range Interpretation Comme nts GLUCOSE (test code = 2217) 88 MG/DL BUN (test code = 2208) 24 MG/DL CREATININE (test code = 2214) 0.94 MG/DL eGFR AMER. (test cod e = 56953) 80 ML/MIN/1.73 eGFR NON- AMER. (test code = 63462) 69 ML/MIN/1.73 CALC BUN/CREAT (test code = [...] code = 2219) 10 U/L Delfino OrtaLIPID [id number] 00:00:00* Test Item Value Reference Range Interpretation Comme nts CHOLESTEROL (test code = 2210) 211 MG/DL TRIGLYCERIDES (test code = 2232) 52 MG/DL HDL CHOLESTEROL (test code = 2220) 90 MG/DL CALC LDL CHOL (test code = 2237) 111 MG/DL RISK RATIO LDL/HDL (test cod e = 2238) 1.23 RATIO Delfino OrtaCBC W/AUTO [id number] 00:00:00* Test Item Value Reference Range Interpretation [...] code = 1016) (NOTE) Delfino OrtaCOMPREHENSIVE METABOLIC [id number] 00:00:00* Test Item Value Reference Range Interpretation Comme nts GLUCOSE (test code = 2217) 88 MG/DL BUN (test code = 2208) 24 MG/DL CREATININE (test code = 2214) 0.94 MG/DL eGFR AMER. (test cod e = 71521) 80 ML/MIN/1.73 eGFR NON- AMER. (test code = 87680) 69 ML/MIN/1.73 CALC BUN/CREAT (test code = [...] code = 2219) 10 U/L Delfino OrtaLIPID [id number] 00:00:00* Test Item Value Reference Range Interpretation Comme nts CHOLESTEROL (test code = 2210) 211 MG/DL TRIGLYCERIDES (test code = 2232) 52 MG/DL HDL CHOLESTEROL (test code = 2220) 90 MG/DL CALC LDL CHOL (test code = 2237) 111 MG/DL RISK RATIO LDL/HDL (test cod e = 2238) 1.23 RATIO Delfino OrtaCBC W/AUTO [id number] 00:00:00* Test Item Value Reference Range Interpretation [...] code = 1016) (NOTE) Delfino OrtaCOMPREHENSIVE METABOLIC [id number] 00:00:00* Test Item Value Reference Range Interpretation Comme nts GLUCOSE (test code = 2217) 88 MG/DL BUN (test code = 2208) 24 MG/DL CREATININE (test code = 2214) 0.94 MG/DL eGFR AMER. (test cod e = 82280) 80 ML/MIN/1.73 eGFR NON- AMER. (test code = 88092) 69 ML/MIN/1.73 CALC BUN/CREAT (test code = [...] code = 2219) 10 U/L Delfino OrtaLIPID [id number] 00:00:00* Test Item Value Reference Range Interpretation Comme nts CHOLESTEROL (test code = 2210) 211 MG/DL TRIGLYCERIDES (test code = 2232) 52 MG/DL HDL CHOLESTEROL (test code = 2220) 90 MG/DL CALC LDL CHOL (test code = 2237) 111 MG/DL RISK RATIO LDL/HDL (test cod e = 2238) 1.23 RATIO Delfino OrtaCBC W/AUTO [id number] 00:00:00* Test Item Value Reference Range Interpretation [...] code = 1016) (NOTE) Delfino OrtaCOMPREHENSIVE METABOLIC [id number] 00:00:00* Test Item Value Reference Range Interpretation Comme nts GLUCOSE (test code = 2217) 88 MG/DL BUN (test code = 2208) 24 MG/DL CREATININE (test code = 2214) 0.94 MG/DL eGFR AMER. (test cod e = 25942) 80 ML/MIN/1.73 eGFR NON- AMER. (test code = 39957) 69 ML/MIN/1.73 CALC BUN/CREAT (test code = [...] code = 2219) 10 U/L Delfino OrtaLIPID [id number] 00:00:00* Test Item Value Reference Range Interpretation Comme nts CHOLESTEROL (test code = 2210) 211 MG/DL TRIGLYCERIDES (test code = 2232) 52 MG/DL HDL CHOLESTEROL (test code = 2220) 90 MG/DL CALC LDL CHOL (test code = 2237) 111 MG/DL RISK RATIO LDL/HDL (test cod e = 2238) 1.23 RATIO Delfino Endy YouCBC W/AUTO [id number] 00:00:00* Test Item Value Reference Range Interpretation [...] code = 1016) (NOTE) Delfino OrtaCOMPREHENSIVE METABOLIC [id number] 00:00:00* Test Item Value Reference Range Interpretation Comme nts GLUCOSE (test code = 2217) 88 MG/DL BUN (test code = 2208) 24 MG/DL CREATININE (test code = 2214) 0.94 MG/DL eGFR AMER. (test cod e = 41020) 80 ML/MIN/1.73 eGFR NON- AMER. (test code = 15987) 69 ML/MIN/1.73 CALC BUN/CREAT (test code = [...] code = 2219) 10 U/L Delfino OrtaLIPID [id number] 00:00:00* Test Item Value Reference Range Interpretation Comme nts CHOLESTEROL (test code = 2210) 211 MG/DL TRIGLYCERIDES (test code = 2232) 52 MG/DL HDL CHOLESTEROL (test code = 2220) 90 MG/DL CALC LDL CHOL (test code = 2237) 111 MG/DL RISK RATIO LDL/HDL (test cod e = 2238) 1.23 RATIO Delfino OrtaCBC W/AUTO [id number] 00:00:00* Test Item Value Reference Range Interpretation [...] = 1016) (NOTE) Delfino Schumacher AustinCOMPREHENSIVE METABOLIC [id number] 00:00:00* Test Item Value Reference Range Interpretation Comme nts GLUCOSE (test code = 2217) 88 MG/DL BUN (test code = 2208) 24 MG/DL CREATININE (test code = 2214) 0.94 MG/DL eGFR AMER. (test cod e = 54025) 80 ML/MIN/1.73 eGFR NON- AMER. (test code = 45554) 69 ML/MIN/1.73 CALC BUN/CREAT (test code = [...] code = 2219) 10 U/L Delfino OrtaLIPID [id number] 00:00:00* Test Item Value Reference Range Interpretation Comme nts CHOLESTEROL (test code = 2210) 211 MG/DL TRIGLYCERIDES (test code = 2232) 52 MG/DL HDL CHOLESTEROL (test code = 2220) 90 MG/DL CALC LDL CHOL (test code = 2237) 111 MG/DL RISK RATIO LDL/HDL (test cod e = 2238) 1.23 RATIO Delfino OrtaBAP[facility] P[facility]UCA[facility] W/AUTO [id number] 00:00:00* Test Item Value Reference Range Interpretation [...] COMMENTS (test code = 1016) (NOTE) Delfino OrtaBAPTIST HEALTH PADUCA[facility] W/AUTO [id number] 00:00:00* Test Item Value Reference Range Interpretation [...] (test code = 1016) (NOTE) COMPREHENSIVE METABOLIC [id number] 00:00:00* Test Item Value Reference Range Interpretation Comme nts GLUCOSE (test code = 2217) 88 MG/DL BUN (test code = 2208) 24 MG/DL CREATININE (test code = 2214) 0.94 MG/DL eGFR AMER. (test cod e = 18106) 80 ML/MIN/1.73 eGFR NON- AMER. (test code = 07221) 69 ML/MIN/1.73 CALC BUN/CREAT (test code = [...] (test code = 2219) 10 U/L URIC [id number] 00:00:00* Test Item Value Reference Range Interpretation Comme nts URIC ACID (test code = 2233) 7.5 MG/DL VITAMIN D, 25 [id number] 00:00:00* Test Item Value Reference Range Interpretation Comme nts VITAMIN D, 25 OH (test code = 4958) 36 NG/ML URIC [id number] 00:00:00* Test Item Value Reference Range Interpretation Comme nts URIC ACID (test code = 2233) 7.5 MG/DL VITAMIN D, 25 [id number] 00:00:00* Test Item Value Reference Range Interpretation Comme nts VITAMIN D, 25 OH (test code = 4958) 36 NG/ML URIC [id number] 00:00:00* Test Item Value Reference Range Interpretation Comme nts URIC ACID (test code = 2233) 7.5 MG/DL VITAMIN D, 25 [id number] 00:00:00* Test Item Value Reference Range Interpretation Comme nts VITAMIN D, 25 OH (test code = 4958) 36 NG/ML VITAMIN D, 25 [id number] 00:00:00* Test Item Value Reference Range Interpretation Comme nts VITAMIN D, 25 OH (test code = 4958) 36 NG/ML Delfino Schumacher AustinURIC [id number] 00:00:00* Test Item Value Reference Range Interpretation Comme nts URIC ACID (test code = 2233) 7.5 MG/DL Delfino Schumacher AustinVITAMIN D, 25 [id number] 00:00:00* Test Item Value Reference Range Interpretation Comme nts VITAMIN D, 25 OH (test code = 4958) 36 NG/ML Delfino Schumacher AustinURIC [id number] 00:00:00* Test Item Value Reference Range Interpretation Comme nts URIC ACID (test code = 2233) 7.5 MG/DL Delfino Schumacher AustinVITAMIN D, 25 [id number] 00:00:00* Test Item Value Reference Range Interpretation Comme nts VITAMIN D, 25 OH (test code = 4958) 36 NG/ML Delfino Schumacher AustinVITAMIN D, 25 [id number] 00:00:00* Test Item Value Reference Range Interpretation Comme nts VITAMIN D, 25 OH (test code = 4958) 36 NG/ML Delfino Schumacher AustinURIC [id number] 00:00:00* Test Item Value Reference Range Interpretation Comme nts URIC ACID (test code = 2233) 7.5 MG/DL Delfino Schumacher AustinVITAMIN D, 25 [id number] 00:00:00* Test Item Value Reference Range Interpretation Comme nts VITAMIN D, 25 OH (test code = 4958) 36 NG/ML Delfino Schumacher AustinURIC [id number] 00:00:00* Test Item Value Reference Range Interpretation Comme nts URIC ACID (test code = 2233) 7.5 MG/DL Delfino Schumacher AustinVITAMIN D, 25 [id number] 00:00:00* Test Item Value Reference Range Interpretation Comme nts VITAMIN D, 25 OH (test code = 4958) 36 NG/ML Delfino Schumacher AustinURIC [id number] 00:00:00* Test Item Value Reference Range Interpretation Comme nts URIC ACID (test code = 2233) 7.5 MG/DL Delfino Schumacher AustinVITAMIN D, 25 [id number] 00:00:00* Test Item Value Reference Range Interpretation Comme nts VITAMIN D, 25 OH (test code = 4958) 36 NG/ML Delfino Schumacher AustinURIC [id number] 00:00:00* Test Item Value Reference Range Interpretation Comme nts URIC ACID (test code = 2233) 7.5 MG/DL Delfino Schumacher AustinVITAMIN D, 25 [id number] 00:00:00* Test Item Value Reference Range Interpretation Comme nts VITAMIN D, 25 OH (test code = 4958) 36 NG/ML Delfino Schumacher AustinURIC [id number] 00:00:00* Test Item Value Reference Range Interpretation Comme nts URIC ACID (test code = 2233) 7.5 MG/DL Delfino Schumacher AustinVITAMIN D, 25 [id number] 00:00:00* Test Item Value Reference Range Interpretation Comme nts VITAMIN D, 25 OH (test code = 4958) 36 NG/ML Delfino Schumacher AustinURIC [id number] 00:00:00* Test Item Value Reference Range Interpretation Comme nts URIC ACID (test code = 2233) 7.5 MG/DL Delfino Schumacher AustinVITAMIN D, 25 [id number] 00:00:00* Test Item Value Reference Range Interpretation Comme nts VITAMIN D, 25 OH (test code = 4958) 36 NG/ML Delfino Schumacher AustinURIC [id number] 00:00:00* Test Item Value Reference Range Interpretation Comme nts URIC ACID (test code = 2233) 7.5 MG/DL Delfino Schumacher AustinVITAMIN D, 25 [id number] 00:00:00* Test Item Value Reference Range Interpretation Comme nts VITAMIN D, 25 OH (test code = 4958) 36 NG/ML Delfino Schumacher AustinURIC [id number] 00:00:00* Test Item Value Reference Range Interpretation Comme nts URIC ACID (test code = 2233) 7.5 MG/DL Delfino Schumacher AustinVITAMIN D, 25 [id number] 00:00:00* Test Item Value Reference Range Interpretation Comme nts VITAMIN D, 25 OH (test code = 4958) 36 NG/ML Delfino Schumacher [facility] [id number] 00:00:00* Test Item Value Reference Range Interpretation Comme nts URIC ACID (test code = 2233) 7.5 MG/DL Delfino Schumacher AustinVITAMIN D, 25 [id number] 00:00:00* Test Item Value Reference Range Interpretation Comme nts VITAMIN D, 25 OH (test code = 4958) 36 NG/ML Delfino Schumacher [facility]IC [id number] 00:00:00* Test Item Value Reference Range Interpretation Comme nts URIC ACID (test code = 2233) 7.5 MG/DL Delfino Schumacher AustinVITAMIN D, 25 [id number] 00:00:00* Test Item Value Reference Range Interpretation Comme nts VITAMIN D, 25 OH (test code = 4958) 36 NG/ML Delfino Schumacher [facility] [id number] 00:00:00* Test Item Value Reference Range Interpretation Comme nts URIC ACID (test code = 2233) 7.5 MG/DL Delfino Schumacher AustinVITAMIN D, 25 [id number] 00:00:00* Test Item Value Reference Range Interpretation Comme nts VITAMIN D, 25 OH (test code = 4958) 36 NG/ML Delfino Scuhmacher AustinURIC [id number] 00:00:00* Test Item Value Reference Range Interpretation Comme nts URIC ACID (test code = 2233) 7.5 MG/DL Delfino Schumacher AustinVITAMIN D, 25 [id number] 00:00:00* Test Item Value Reference Range Interpretation Comme nts VITAMIN D, 25 OH (test code = 4958) 36 NG/ML Delfino Schumacher [facility]IC [id number] 00:00:00* Test Item Value Reference Range Interpretation Comme nts URIC ACID (test code = 2233) 7.5 MG/DL Delfino Schumacher AustinVITAMIN D, 25 [id number] 00:00:00* Test Item Value Reference Range Interpretation Comme nts VITAMIN D, 25 OH (test code = 4958) 36 NG/ML Delfino Schumacher [facility]IC [id number] 00:00:00* Test Item Value Reference Range Interpretation Comme nts URIC ACID (test code = 2233) 7.5 MG/DL Delfino Schumacher AustinVITAMIN D, 25 [id number] 00:00:00* Test Item Value Reference Range Interpretation Comme nts VITAMIN D, 25 OH (test code = 4958) 36 NG/ML Delfino Schumacher [facility]URIC [id number] 00:00:00* Test Item Value Reference Range Interpretation Comme nts URIC ACID (test code = 2233) 7.5 MG/DL Delfino Schumacher AustinVITAMIN D, 25 [id number] 00:00:00* Test Item Value Reference Range Interpretation Comme nts VITAMIN D, 25 OH (test code = 4958) 36 NG/ML Delfino Schumacher [facility] [id number] 00:00:00* Test Item Value Reference Range Interpretation Comme nts URIC ACID (test code = 2233) 7.5 MG/DL Delfino Schumacher AustinVITAMIN D, 25 [id number] 00:00:00* Test Item Value Reference Range Interpretation Comme nts VITAMIN D, 25 OH (test code = 4958) 36 NG/ML Delfino Schumacher [facility] [id number] 00:00:00* Test Item Value Reference Range Interpretation Comme nts URIC ACID (test code = 2233) 7.5 MG/DL Delfino Schumacher AustinVITAMIN D, 25 [id number] 00:00:00* Test Item Value Reference Range Interpretation Comme nts VITAMIN D, 25 OH (test code = 4958) 36 NG/ML Delfino Schumacher [facility] [id number] 00:00:00* Test Item Value Reference Range Interpretation Comme nts URIC ACID (test code = 2233) 7.5 MG/DL Delfino Schumacher AustinVITAMIN D, 25 [id number] 00:00:00* Test Item Value Reference Range Interpretation Comme nts VITAMIN D, 25 OH (test code = 4958) 36 NG/ML Delfino Schumacher [facility] [id number] 00:00:00* Test Item Value Reference Range Interpretation Comme nts URIC ACID (test code = 2233) 7.5 MG/DL Delfino Schumacher AustinVITAMIN D, 25 [id number] 00:00:00* Test Item Value Reference Range Interpretation Comme nts VITAMIN D, 25 OH (test code = 4958) 36 NG/ML Delfino Schumacher [facility] [id number] 00:00:00* Test Item Value Reference Range Interpretation Comme nts URIC ACID (test code = 2233) 7.5 MG/DL Delfino Schumacher AustinVITAMIN D, 25 [id number] 00:00:00* Test Item Value Reference Range Interpretation Comme nts VITAMIN D, 25 OH (test code = 4958) 36 NG/ML Delfino Schumacher [facility] [id number] 00:00:00* Test Item Value Reference Range Interpretation Comme nts URIC ACID (test code = 2233) 7.5 MG/DL Delfino Schumacher AustinVITAMIN D, 25 [id number] 00:00:00* Test Item Value Reference Range Interpretation Comme nts VITAMIN D, 25 OH (test code = 4958) 36 NG/ML Delfino Schumacher [facility] [id number] 00:00:00* Test Item Value Reference Range Interpretation Comme nts URIC ACID (test code = 2233) 7.5 MG/DL Delfino Schumacher AustinVITAMIN D, 25 [id number] 00:00:00* Test Item Value Reference Range Interpretation Comme nts VITAMIN D, 25 OH (test code = 4958) 36 NG/ML Delfino Schumacher [facility] [id number] 00:00:00* Test Item Value Reference Range Interpretation Comme nts URIC ACID (test code = 2233) 7.5 MG/DL Delfino Schumacher AustinVITAMIN D, 25 [id number] 00:00:00* Test Item Value Reference Range Interpretation Comme nts VITAMIN D, 25 OH (test code = 4958) 36 NG/ML Delfino Schumacher [facility] [id number] 00:00:00* Test Item Value Reference Range Interpretation Comme nts URIC ACID (test code = 2233) 7.5 MG/DL Delfino Schumacher AustinVITAMIN D, 25 [id number] 00:00:00* Test Item Value Reference Range Interpretation Comme nts VITAMIN D, 25 OH (test code = 4958) 36 NG/ML Delfino Schumacher [facility] [id number] 00:00:00* Test Item Value Reference Range Interpretation Comme nts URIC ACID (test code = 2233) 7.5 MG/DL Delfino Schumacher AustinVITAMIN D, 25 [id number] 00:00:00* Test Item Value Reference Range Interpretation Comme nts VITAMIN D, 25 OH (test code = 4958) 36 NG/ML Delfino Schumacher [facility] [id number] 00:00:00* Test Item Value Reference Range Interpretation Comme nts URIC ACID (test code = 2233) 7.5 MG/DL Delfino Schumacher AustinVITAMIN D, 25 [id number] 00:00:00* Test Item Value Reference Range Interpretation Comme nts VITAMIN D, 25 OH (test code = 4958) 36 NG/ML Delfino Schumacher [facility] [id number] 00:00:00* Test Item Value Reference Range Interpretation Comme nts URIC ACID (test code = 2233) 7.5 MG/DL Delfino Schumacher AustinVITAMIN D, 25 [id number] 00:00:00* Test Item Value Reference Range Interpretation Comme nts VITAMIN D, 25 OH (test code = 4958) 36 NG/ML Delfino Schumacher [facility] [id number] 00:00:00* Test Item Value Reference Range Interpretation Comme nts URIC ACID (test code = 2233) 7.5 MG/DL Delfino Schumacher AustinVITAMIN D, 25 [id number] 00:00:00* Test Item Value Reference Range Interpretation Comme nts VITAMIN D, 25 OH (test code = 4958) 36 NG/ML Delfino Schumacher [facility] [id number] 00:00:00* Test Item Value Reference Range Interpretation Comme nts URIC ACID (test code = 2233) 7.5 MG/DL Delfino Schumacher AustinVITAMIN D, 25 [id number] 00:00:00* Test Item Value Reference Range Interpretation Comme nts VITAMIN D, 25 OH (test code = 4958) 36 NG/ML Delfino Schumacher [facility] [id number] 00:00:00* Test Item Value Reference Range Interpretation Comme nts URIC ACID (test code = 2233) 7.5 MG/DL Delfino Schumacher AustinVITAMIN D, 25 [id number] 00:00:00* Test Item Value Reference Range Interpretation Comme nts VITAMIN D, 25 OH (test code = 4958) 36 NG/ML Delfino Schumacher [facility] [id number] 00:00:00* Test Item Value Reference Range Interpretation Comme nts URIC ACID (test code = 2233) 7.5 MG/DL Delfino Schumacher [facility] [id number] 00:00:00* Test Item Value Reference Range Interpretation Comme nts URIC ACID (test code = 2233) 7.5 MG/DL Delfino Schumacher [facility] [id number] 00:00:00* Test Item Value Reference Range Interpretation Comme nts URIC ACID (test code = 2233) 7.5 MG/DL VITAMIN D, 25 [id number] 00:00:00* Test Item Value Reference Range Interpretation Comme nts VITAMIN D, 25 OH (test code = 4958) 36 NG/ML RHEUMATOID FACTOR, [id number] 00:00:00* Test Item Value Reference Range Interpretation Comme nts RHEUMATOID FACTOR, QUANT (te st code = 3502) <10 IU/ML SEDIMENTATION [id number] 00:00:00* Test Item Value Reference Range Interpretation Comme nts SEDIMENTATION RATE (test cod e = 1017) 117 MM/HOUR C-REACTIVE [id number] 00:00:00* Test Item Value Reference Range Interpretation Comme nts C-REACTIVE PROTEIN (test cod e = 3513) 0.3 MG/DL RHEUMATOID FACTOR, [id number] 00:00:00* Test Item Value Reference Range Interpretation Comme nts RHEUMATOID FACTOR, QUANT (te st code = 3502) <10 IU/ML SEDIMENTATION [id number] 00:00:00* Test Item Value Reference Range Interpretation Comme nts SEDIMENTATION RATE (test cod e = 1017) 117 MM/HOUR C-REACTIVE [id number] 00:00:00* Test Item Value Reference Range Interpretation Comme nts C-REACTIVE PROTEIN (test cod e = 3513) 0.3 MG/DL RHEUMATOID FACTOR, [id number] 00:00:00* Test Item Value Reference Range Interpretation Comme nts RHEUMATOID FACTOR, QUANT (te st code = 3502) <10 IU/ML SEDIMENTATION [id number] 00:00:00* Test Item Value Reference Range Interpretation Comme nts SEDIMENTATION RATE (test cod e = 1017) 117 MM/HOUR C-REACTIVE [id number] 00:00:00* Test Item Value Reference Range Interpretation Comme nts C-REACTIVE PROTEIN (test cod e = 3513) 0.3 MG/DL RHEUMATOID FACTOR, [id number] 00:00:00* Test Item Value Reference Range Interpretation Comme nts RHEUMATOID FACTOR, QUANT (te st code = 3502) <10 IU/ML SEDIMENTATION [id number] 00:00:00* Test Item Value Reference Range Interpretation Comme nts SEDIMENTATION RATE (test cod e = 1017) 117 MM/HOUR RHEUMATOID FACTOR, [id number] 00:00:00* Test Item Value Reference Range Interpretation Comme nts RHEUMATOID FACTOR, QUANT (te st code = 3502) <10 IU/ML Delfino F AustinSEDIMENTATION [id number] 00:00:00* Test Item Value Reference Range Interpretation Comme nts SEDIMENTATION RATE (test cod e = 1017) 117 MM/HOUR Delfino F AustinC-REACTIVE [id number] 00:00:00* Test Item Value Reference Range Interpretation Comme nts C-REACTIVE PROTEIN (test cod e = 3513) 0.3 MG/DL Delfino F AustinRHEUMATOID FACTOR, [id number] 00:00:00* Test Item Value Reference Range Interpretation Comme nts RHEUMATOID FACTOR, QUANT (te st code = 3502) <10 IU/ML Delfino F AustinSEDIMENTATION [id number] 00:00:00* Test Item Value Reference Range Interpretation Comme nts SEDIMENTATION RATE (test cod e = 1017) 117 MM/HOUR Delfino F AustinC-REACTIVE [id number] 00:00:00* Test Item Value Reference Range Interpretation Comme nts C-REACTIVE PROTEIN (test cod e = 3513) 0.3 MG/DL Delfino F AustinC-REACTIVE [id number] 00:00:00* Test Item Value Reference Range Interpretation Comme nts C-REACTIVE PROTEIN (test cod e = 3513) 0.3 MG/DL Delfino F AustinRHEUMATOID FACTOR, [id number] 00:00:00* Test Item Value Reference Range Interpretation Comme nts RHEUMATOID FACTOR, QUANT (te st code = 3502) <10 IU/ML Delfino F AustinSEDIMENTATION [id number] 00:00:00* Test Item Value Reference Range Interpretation Comme nts SEDIMENTATION RATE (test cod e = 1017) 117 MM/HOUR Delfino F AustinRHEUMATOID FACTOR, [id number] 00:00:00* Test Item Value Reference Range Interpretation Comme nts RHEUMATOID FACTOR, QUANT (te st code = 3502) <10 IU/ML Delfino F AustinC-REACTIVE [id number] 00:00:00* Test Item Value Reference Range Interpretation Comme nts C-REACTIVE PROTEIN (test cod e = 3513) 0.3 MG/DL Delfino F AustinRHEUMATOID FACTOR, [id number] 00:00:00* Test Item Value Reference Range Interpretation Comme nts RHEUMATOID FACTOR, QUANT (te st code = 3502) <10 IU/ML Delfino F AustinSEDIMENTATION [id number] 00:00:00* Test Item Value Reference Range Interpretation Comme nts SEDIMENTATION RATE (test cod e = 1017) 117 MM/HOUR Delfino F AustinC-REACTIVE [id number] 00:00:00* Test Item Value Reference Range Interpretation Comme nts C-REACTIVE PROTEIN (test cod e = 3513) 0.3 MG/DL Delfino F AustinSEDIMENTATION [id number] 00:00:00* Test Item Value Reference Range Interpretation Comme nts SEDIMENTATION RATE (test cod e = 1017) 117 MM/HOUR Delfino F AustinRHEUMATOID FACTOR, [id number] 00:00:00* Test Item Value Reference Range Interpretation Comme nts RHEUMATOID FACTOR, QUANT (te st code = 3502) <10 IU/ML Delfino F AustinSEDIMENTATION [id number] 00:00:00* Test Item Value Reference Range Interpretation Comme nts SEDIMENTATION RATE (test cod e = 1017) 117 MM/HOUR Delfino F AustinC-REACTIVE [id number] 00:00:00* Test Item Value Reference Range Interpretation Comme nts C-REACTIVE PROTEIN (test cod e = 3513) 0.3 MG/DL Delfino F AustinRHEUMATOID FACTOR, [id number] 00:00:00* Test Item Value Reference Range Interpretation Comme nts RHEUMATOID FACTOR, QUANT (te st code = 3502) <10 IU/ML Delfino F AustinSEDIMENTATION [id number] 00:00:00* Test Item Value Reference Range Interpretation Comme nts SEDIMENTATION RATE (test cod e = 1017) 117 MM/HOUR Delfino F AustinC-REACTIVE [id number] 00:00:00* Test Item Value Reference Range Interpretation Comme nts C-REACTIVE PROTEIN (test cod e = 3513) 0.3 MG/DL Delfino F AustinRHEUMATOID FACTOR, [id number] 00:00:00* Test Item Value Reference Range Interpretation Comme nts RHEUMATOID FACTOR, QUANT (te st code = 3502) <10 IU/ML Delfino F AustinSEDIMENTATION [id number] 00:00:00* Test Item Value Reference Range Interpretation Comme nts SEDIMENTATION RATE (test cod e = 1017) 117 MM/HOUR Delfino F AustinC-REACTIVE [id number] 00:00:00* Test Item Value Reference Range Interpretation Comme nts C-REACTIVE PROTEIN (test cod e = 3513) 0.3 MG/DL Delfino F AustinRHEUMATOID FACTOR, [id number] 00:00:00* Test Item Value Reference Range Interpretation Comme nts RHEUMATOID FACTOR, QUANT (te st code = 3502) <10 IU/ML Delfino F AustinSEDIMENTATION [id number] 00:00:00* Test Item Value Reference Range Interpretation Comme nts SEDIMENTATION RATE (test cod e = 1017) 117 MM/HOUR Delfino F AustinC-REACTIVE [id number] 00:00:00* Test Item Value Reference Range Interpretation Comme nts C-REACTIVE PROTEIN (test cod e = 3513) 0.3 MG/DL Delfino F AustinRHEUMATOID FACTOR, [id number] 00:00:00* Test Item Value Reference Range Interpretation Comme nts RHEUMATOID FACTOR, QUANT (te st code = 3502) <10 IU/ML Delfino F AustinSEDIMENTATION [id number] 00:00:00* Test Item Value Reference Range Interpretation Comme nts SEDIMENTATION RATE (test cod e = 1017) 117 MM/HOUR Delfino F AustinC-REACTIVE [id number] 00:00:00* Test Item Value Reference Range Interpretation Comme nts C-REACTIVE PROTEIN (test cod e = 3513) 0.3 MG/DL Delfino F AustinRHEUMATOID FACTOR, [id number] 00:00:00* Test Item Value Reference Range Interpretation Comme nts RHEUMATOID FACTOR, QUANT (te st code = 3502) <10 IU/ML Delfino F AustinSEDIMENTATION [id number] 00:00:00* Test Item Value Reference Range Interpretation Comme nts SEDIMENTATION RATE (test cod e = 1017) 117 MM/HOUR Delfino F AustinC-REACTIVE [id number] 00:00:00* Test Item Value Reference Range Interpretation Comme nts C-REACTIVE PROTEIN (test cod e = 3513) 0.3 MG/DL Delfino F AustinRHEUMATOID FACTOR, [id number] 00:00:00* Test Item Value Reference Range Interpretation Comme nts RHEUMATOID FACTOR, QUANT (te st code = 3502) <10 IU/ML Delfino F AustinSEDIMENTATION [id number] 00:00:00* Test Item Value Reference Range Interpretation Comme nts SEDIMENTATION RATE (test cod e = 1017) 117 MM/HOUR Delfino F AustinC-REACTIVE [id number] 00:00:00* Test Item Value Reference Range Interpretation Comme nts C-REACTIVE PROTEIN (test cod e = 3513) 0.3 MG/DL Delfino F AustinRHEUMATOID FACTOR, [id number] 00:00:00* Test Item Value Reference Range Interpretation Comme nts RHEUMATOID FACTOR, QUANT (te st code = 3502) <10 IU/ML Delfino F AustinSEDIMENTATION [id number] 00:00:00* Test Item Value Reference Range Interpretation Comme nts SEDIMENTATION RATE (test cod e = 1017) 117 MM/HOUR Delfino F AustinC-REACTIVE [id number] 00:00:00* Test Item Value Reference Range Interpretation Comme nts C-REACTIVE PROTEIN (test cod e = 3513) 0.3 MG/DL Delfino F AustinRHEUMATOID FACTOR, [id number] 00:00:00* Test Item Value Reference Range Interpretation Comme nts RHEUMATOID FACTOR, QUANT (te st code = 3502) <10 IU/ML Delfino F AustinSEDIMENTATION [id number] 00:00:00* Test Item Value Reference Range Interpretation Comme nts SEDIMENTATION RATE (test cod e = 1017) 117 MM/HOUR Delfino F AustinC-REACTIVE [id number] 00:00:00* Test Item Value Reference Range Interpretation Comme nts C-REACTIVE PROTEIN (test cod e = 3513) 0.3 MG/DL Delfino F AustinRHEUMATOID FACTOR, [id number] 00:00:00* Test Item Value Reference Range Interpretation Comme nts RHEUMATOID FACTOR, QUANT (te st code = 3502) <10 IU/ML Delfino F AustinSEDIMENTATION [id number] 00:00:00* Test Item Value Reference Range Interpretation Comme nts SEDIMENTATION RATE (test cod e = 1017) 117 MM/HOUR Delfino F AustinC-REACTIVE [id number] 00:00:00* Test Item Value Reference Range Interpretation Comme nts C-REACTIVE PROTEIN (test cod e = 3513) 0.3 MG/DL Delfino F AustinRHEUMATOID FACTOR, [id number] 00:00:00* Test Item Value Reference Range Interpretation Comme nts RHEUMATOID FACTOR, QUANT (te st code = 3502) <10 IU/ML Delfino F AustinSEDIMENTATION [id number] 00:00:00* Test Item Value Reference Range Interpretation Comme nts SEDIMENTATION RATE (test cod e = 1017) 117 MM/HOUR Delfino F AustinC-REACTIVE [id number] 00:00:00* Test Item Value Reference Range Interpretation Comme nts C-REACTIVE PROTEIN (test cod e = 3513) 0.3 MG/DL Delfino F AustinRHEUMATOID FACTOR, [id number] 00:00:00* Test Item Value Reference Range Interpretation Comme nts RHEUMATOID FACTOR, QUANT (te st code = 3502) <10 IU/ML Delfino F AustinSEDIMENTATION [id number] 00:00:00* Test Item Value Reference Range Interpretation Comme nts SEDIMENTATION RATE (test cod e = 1017) 117 MM/HOUR Delfino F AustinC-REACTIVE [id number] 00:00:00* Test Item Value Reference Range Interpretation Comme nts C-REACTIVE PROTEIN (test cod e = 3513) 0.3 MG/DL Delfino F AustinRHEUMATOID FACTOR, [id number] 00:00:00* Test Item Value Reference Range Interpretation Comme nts RHEUMATOID FACTOR, QUANT (te st code = 3502) <10 IU/ML Delfino F AustinSEDIMENTATION [id number] 00:00:00* Test Item Value Reference Range Interpretation Comme nts SEDIMENTATION RATE (test cod e = 1017) 117 MM/HOUR Delfino F AustinC-REACTIVE [id number] 00:00:00* Test Item Value Reference Range Interpretation Comme nts C-REACTIVE PROTEIN (test cod e = 3513) 0.3 MG/DL Delfino F AustinRHEUMATOID FACTOR, [id number] 00:00:00* Test Item Value Reference Range Interpretation Comme nts RHEUMATOID FACTOR, QUANT (te st code = 3502) <10 IU/ML Delfino F AustinSEDIMENTATION [id number] 00:00:00* Test Item Value Reference Range Interpretation Comme nts SEDIMENTATION RATE (test cod e = 1017) 117 MM/HOUR Delfino F AustinC-REACTIVE [id number] 00:00:00* Test Item Value Reference Range Interpretation Comme nts C-REACTIVE PROTEIN (test cod e = 3513) 0.3 MG/DL Delfino F AustinRHEUMATOID FACTOR, [id number] 00:00:00* Test Item Value Reference Range Interpretation Comme nts RHEUMATOID FACTOR, QUANT (te st code = 3502) <10 IU/ML Delfino F AustinSEDIMENTATION [id number] 00:00:00* Test Item Value Reference Range Interpretation Comme nts SEDIMENTATION RATE (test cod e = 1017) 117 MM/HOUR Delfino F AustinC-REACTIVE [id number] 00:00:00* Test Item Value Reference Range Interpretation Comme nts C-REACTIVE PROTEIN (test cod e = 3513) 0.3 MG/DL Delfino F AustinRHEUMATOID FACTOR, [id number] 00:00:00* Test Item Value Reference Range Interpretation Comme nts RHEUMATOID FACTOR, QUANT (te st code = 3502) <10 IU/ML Delfino F AustinSEDIMENTATION [id number] 00:00:00* Test Item Value Reference Range Interpretation Comme nts SEDIMENTATION RATE (test cod e = 1017) 117 MM/HOUR Delfino F AustinC-REACTIVE [id number] 00:00:00* Test Item Value Reference Range Interpretation Comme nts C-REACTIVE PROTEIN (test cod e = 3513) 0.3 MG/DL Delfino F AustinRHEUMATOID FACTOR, [id number] 00:00:00* Test Item Value Reference Range Interpretation Comme nts RHEUMATOID FACTOR, QUANT (te st code = 3502) <10 IU/ML Delfino F AustinSEDIMENTATION [id number] 00:00:00* Test Item Value Reference Range Interpretation Comme nts SEDIMENTATION RATE (test cod e = 1017) 117 MM/HOUR Delfino F AustinC-REACTIVE [id number] 00:00:00* Test Item Value Reference Range Interpretation Comme nts C-REACTIVE PROTEIN (test cod e = 3513) 0.3 MG/DL Delfino F AustinRHEUMATOID FACTOR, [id number] 00:00:00* Test Item Value Reference Range Interpretation Comme nts RHEUMATOID FACTOR, QUANT (te st code = 3502) <10 IU/ML Delfino F AustinSEDIMENTATION [id number] 00:00:00* Test Item Value Reference Range Interpretation Comme nts SEDIMENTATION RATE (test cod e = 1017) 117 MM/HOUR Delfino F AustinC-REACTIVE [id number] 00:00:00* Test Item Value Reference Range Interpretation Comme nts C-REACTIVE PROTEIN (test cod e = 3513) 0.3 MG/DL Delfino F AustinRHEUMATOID FACTOR, [id number] 00:00:00* Test Item Value Reference Range Interpretation Comme nts RHEUMATOID FACTOR, QUANT (te st code = 3502) <10 IU/ML Delfino F AustinSEDIMENTATION [id number] 00:00:00* Test Item Value Reference Range Interpretation Comme nts SEDIMENTATION RATE (test cod e = 1017) 117 MM/HOUR Delfino F AustinC-REACTIVE [id number] 00:00:00* Test Item Value Reference Range Interpretation Comme nts C-REACTIVE PROTEIN (test cod e = 3513) 0.3 MG/DL Delfino F AustinRHEUMATOID FACTOR, [id number] 00:00:00* Test Item Value Reference Range Interpretation Comme nts RHEUMATOID FACTOR, QUANT (te st code = 3502) <10 IU/ML Delfino F AustinSEDIMENTATION [id number] 00:00:00* Test Item Value Reference Range Interpretation Comme nts SEDIMENTATION RATE (test cod e = 1017) 117 MM/HOUR Delfino F AustinC-REACTIVE [id number] 00:00:00* Test Item Value Reference Range Interpretation Comme nts C-REACTIVE PROTEIN (test cod e = 3513) 0.3 MG/DL Delfino F AustinRHEUMATOID FACTOR, [id number] 00:00:00* Test Item Value Reference Range Interpretation Comme nts RHEUMATOID FACTOR, QUANT (te st code = 3502) <10 IU/ML Delfino F AustinSEDIMENTATION [id number] 00:00:00* Test Item Value Reference Range Interpretation Comme nts SEDIMENTATION RATE (test cod e = 1017) 117 MM/HOUR Delfino F AustinC-REACTIVE [id number] 00:00:00* Test Item Value Reference Range Interpretation Comme nts C-REACTIVE PROTEIN (test cod e = 3513) 0.3 MG/DL Delfino F AustinRHEUMATOID FACTOR, [id number] 00:00:00* Test Item Value Reference Range Interpretation Comme nts RHEUMATOID FACTOR, QUANT (te st code = 3502) <10 IU/ML Delfino F AustinSEDIMENTATION [id number] 00:00:00* Test Item Value Reference Range Interpretation Comme nts SEDIMENTATION RATE (test cod e = 1017) 117 MM/HOUR Delfino F AustinC-REACTIVE [id number] 00:00:00* Test Item Value Reference Range Interpretation Comme nts C-REACTIVE PROTEIN (test cod e = 3513) 0.3 MG/DL Delfino F AustinRHEUMATOID FACTOR, [id number] 00:00:00* Test Item Value Reference Range Interpretation Comme nts RHEUMATOID FACTOR, QUANT (te st code = 3502) <10 IU/ML Delfino F AustinSEDIMENTATION [id number] 00:00:00* Test Item Value Reference Range Interpretation Comme nts SEDIMENTATION RATE (test cod e = 1017) 117 MM/HOUR Delfino F AustinC-REACTIVE [id number] 00:00:00* Test Item Value Reference Range Interpretation Comme nts C-REACTIVE PROTEIN (test cod e = 3513) 0.3 MG/DL Delfino F AustinRHEUMATOID FACTOR, [id number] 00:00:00* Test Item Value Reference Range Interpretation Comme nts RHEUMATOID FACTOR, QUANT (te st code = 3502) <10 IU/ML Delfino F AustinSEDIMENTATION [id number] 00:00:00* Test Item Value Reference Range Interpretation Comme nts SEDIMENTATION RATE (test cod e = 1017) 117 MM/HOUR Delfino F AustinC-REACTIVE [id number] 00:00:00* Test Item Value Reference Range Interpretation Comme nts C-REACTIVE PROTEIN (test cod e = 3513) 0.3 MG/DL Delfino F AustinRHEUMATOID FACTOR, [id number] 00:00:00* Test Item Value Reference Range Interpretation Comme nts RHEUMATOID FACTOR, QUANT (te st code = 3502) <10 IU/ML Delfino F AustinSEDIMENTATION [id number] 00:00:00* Test Item Value Reference Range Interpretation Comme nts SEDIMENTATION RATE (test cod e = 1017) 117 MM/HOUR Delfino F AustinC-REACTIVE [id number] 00:00:00* Test Item Value Reference Range Interpretation Comme nts C-REACTIVE PROTEIN (test cod e = 3513) 0.3 MG/DL Delfino F AustinRHEUMATOID FACTOR, [id number] 00:00:00* Test Item Value Reference Range Interpretation Comme nts RHEUMATOID FACTOR, QUANT (te st code = 3502) <10 IU/ML Delfino F AustinSEDIMENTATION [id number] 00:00:00* Test Item Value Reference Range Interpretation Comme nts SEDIMENTATION RATE (test cod e = 1017) 117 MM/HOUR Delfino F AustinC-REACTIVE [id number] 00:00:00* Test Item Value Reference Range Interpretation Comme nts C-REACTIVE PROTEIN (test cod e = 3513) 0.3 MG/DL Delfino F AustinRHEUMATOID FACTOR, [id number] 00:00:00* Test Item Value Reference Range Interpretation Comme nts RHEUMATOID FACTOR, QUANT (te st code = 3502) <10 IU/ML Delfino F AustinSEDIMENTATION [id number] 00:00:00* Test Item Value Reference Range Interpretation Comme nts SEDIMENTATION RATE (test cod e = 1017) 117 MM/HOUR Delfino F AustinC-REACTIVE [id number] 00:00:00* Test Item Value Reference Range Interpretation Comme nts C-REACTIVE PROTEIN (test cod e = 3513) 0.3 MG/DL Delfino F AustinRHEUMATOID FACTOR, [id number] 00:00:00* Test Item Value Reference Range Interpretation Comme nts RHEUMATOID FACTOR, QUANT (te st code = 3502) <10 IU/ML Delfino F AustinSEDIMENTATION [id number] 00:00:00* Test Item Value Reference Range Interpretation Comme nts SEDIMENTATION RATE (test cod e = 1017) 117 MM/HOUR Delfino F AustinC-REACTIVE [id number] 00:00:00* Test Item Value Reference Range Interpretation Comme nts C-REACTIVE PROTEIN (test cod e = 3513) 0.3 MG/DL Delfino F AustinRHEUMATOID FACTOR, [id number] 00:00:00* Test Item Value Reference Range Interpretation Comme nts RHEUMATOID FACTOR, QUANT (te st code = 3502) <10 IU/ML Delfino F AustinSEDIMENTATION [id number] 00:00:00* Test Item Value Reference Range Interpretation Comme nts SEDIMENTATION RATE (test cod e = 1017) 117 MM/HOUR Delfino F AustinC-REACTIVE [id number] 00:00:00* Test Item Value Reference Range Interpretation Comme nts C-REACTIVE PROTEIN (test cod e = 3513) 0.3 MG/DL Delfino F AustinC-REACTIVE [id number] 00:00:00* Test Item Value Reference Range Interpretation [...] Coronary atherosclerosis of unspecified type of vessel, pala or graft 02/11/2013 heart attack Genital warts [...] mobility and Repositioning Provided COMMUNICATION Primary Language: Hong [place]er Able to Verbalize needs: Yes Vision:needs big [...] [place] [phone] for questions or concerns. [facility] 2024-06-04 09:10:00 Associated Order(s): CONSULT ADULT OCCUPATIONAL THERAPY OT GENERAL EVALUATION Consult received via Fire[employer], EMR reviewed and evaluation completed 06/04/24. Patient [...] Equipment Recommendations: See below I certify that Chartio Quiñonez is under my care and that I had a ftlt-xo-quoh encounter with this patient on: 06/04/24 . 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 Romie Aleman [facility] 2023-05-19 10:11:14 Associated Order(s): CONSULT CARDIOLOGY [facility] Cardiology Consult PCP: Jt Orta [facility] Date of Service: 05/19/2023 CHIEF COMPLAINT/reason for consult: Troponin elevation HISTORY OF PRESENT ILLNESS This is a 58 years old female with past medical history of HIV, hypertension, hyperlipidemia, possible CAD etc. She came to [facility] due to cough and dyspnea. She was found to have COPD exacerbation. Labs showed troponin elevation and TAIWO. Denies chest pain. No acute EKG changes. Echocardiogram showed hyperdynamic left ventricle with ejection fraction over 65%. Moderate aortic stenosis noted. PAST MEDICAL HISTORY Past Medical History: Diagnosis Date Coronary atherosclerosis of unspecified type of vessel, pala or graft 02/11/2013 heart attack Genital warts [...] or Shortness of Breath. 8.5 g 0 cufighlhh-cwngwfsq-frgpukp ala 50-200-25 mg tablet Take 1 tablet [...] injury) Aortic stenosis Coronary artery disease involving pala coronary artery of pala heart without angina pectoris COPD exacerbation-continue antibiotics, [...] statins. Continue metoprolol. Follow-up with his primary tax manager public. Possible CAD-she denies coronary intervention. Recommend to [...] further assistance. James Stacy MD, FACC, AUSTYN Guide Dog Mobility Instructor Division of Cardiovascular Medicine [facility] - Health History and Physical Notes Date/Time Note Provider Source 2024-06-03 17:12:08 AURELIA Santosit H&P PCP: Jt Schumacher [facility] Date of Service: 06/03/2024 CHIEF [...] her medications are managed by sister. At [facility]: Vitals: BP 149/92, HR 80s, RR 17-20, [...] - telemetry Uncontrolled HIV (CD4 104, VL [id number], 2023, on Biktarvy) Aox2 without any acute [...] entities. She says she recently saw a tax manager public in [place] and had a procedure that she [...] resident's note for additional details. INTERNAL MEDICINE [facility] 2023-05-16 23:13:44 Medicine History & Physical [...] or Shortness of Breath. 8.5 g 0 rwzjnpavj-uddurfla-yhvauqm ala 50-200-25 mg tablet Take 1 tablet [...] Coronary atherosclerosis of unspecified type of vessel, pala or graft 02/11/2013 heart attack Genital warts [...] Disposition: Admit to inpatient IM-INTERNAL MEDICINE STAFF [facility] Notes Date/Time Note Provider Source [facility]2025-09-16 00:00:00 [facility]2025-09-03 00:00:00 [facility]2025-08-26 00:00:00 [facility]2025-08-20 10:27:35 Called patient to schedule received no answer and mailbox was full and couldn't leave a message Parker JimenesCity HospitalJllilr6495-95-12 00:00:00 [facility]2025-08-06 14:07:49 Copied from [facility] #[id number]. Topic: Appointment - Schedule Appointment >> Sep 16, 2024 2:06 PM Patient Human Resources Supervisor wrote: Patient Charito Quiñonez called to schedule an appointment with oral surgery. Ruthann HornCity HospitalDfpsly2032-23-15 00:00:00 Delfino Piper [facility]2025-07-01 00:00:00 Delfino Feliz [facility]2025-06-26 00:00:00 [facility]2025-05-22 15:08:05 Mailbox full See case mgmt note 06/08/24 Appointments Nursing Interventions: Advised patient to make appointment (Becky will schedule an appointment with external PCP this week.) Has the patient kept scheduled appointments due by today?: Not applicable Nursing Interventions: Advised to schedule with specialist (HFU team emailed for scheduling assistance with Cardiology.) Josephine Gibbs [facility]Sllnnw3366-19-77 00:00:00 Delfino Piper [facility]2025-05-14 09:30:40 Called patient and left voicemail to notify the pt of the need for an appointment for medication refills [facility] CenterUhgion1244-51-89 16:46:39 Patient should seek any additional refills with her PCP or with her local tax manager public. She was transferred here from an outside ED but does not get regular care from us. IM-INFECTIOUS DISEASE STAFFCity HospitalMmkoxz1482-02-89 10:25:15 Requested Prescriptions Pending Prescriptions Disp Refills FUROSEMIDE 20 mg tablet [Pharmacy Med Name: FUROSEMIDE 20 MG TABLET] 90 tablet 1 Sig: TAKE 1 TABLET BY MOUTH EVERY DAY IN THE MORNING Last Office Visit: Hospital Admission Last refill on-06/05/2024 #30 no refills Next office visit scheduled on none Refill Routed to provider per Ambulatory guidelines. Please review refill request. Bertha Guerrier [facility]rium HealthGanmka9838-06-36 00:00:00 Delfino Piper [facility]2025-04-25 07:54:52 Problem: Discharge Planning Goal: Adequate for [...] airway Outcome: Progressing as expected Linda Verdugo [facility] ProvidenceAdjkjz3376-28-04 22:43:01 06/04/24 2240 Broncho Score Smoking History [...] in 24 hours. Please contact the respiratory long line teamster at [phone] if you have any questions or concerns. BRONCHO SCORE SHEET Tadeo Reno RTCity HospitalAaigzu3001-81-28 22:39:37 A patient w/ normal wob. City HospitalNlykhc6217-89-46 12:25:26 Problem: Discharge Planning Goal: Adequate for [...] output Outcome: Progressing as expected Brea Shaver RNCity HospitalCojeiz1454-52-93 18:57:00 Summary: Bronchodilator Protocol Respiratory Care Services Bronchodilator Treatment Plan Assessment INITIAL OR TITRATION Date: 06/03/24 I assessed, Charito Quiñonez using the bronchodilator assessment tool and scored this patient at 6 with a triage number of 4, which has a bronchodilator treatment plan of TID & PRN. The next protocol scoring assessment will be in 24 hours. Please contact the respiratory long line teamster at [phone] if you have any questions or concerns. BRONCHO SCORE SHEET Problem list: Patient Active Problem List Diagnosis HIV (human immunodeficiency virus infection) Genital warts H/O: hysterectomy Obesity (BMI 30-39.9) Medically noncompliant Thrush Bacteremia Murmur, cardiac LGSIL Pap smear of vagina Acute cough COPD exacerbation Troponin I above reference range Primary hypertension Other hyperlipidemia TAIWO (acute kidney injury) Aortic stenosis Coronary artery disease involving pala coronary artery of pala heart without angina pectoris Shortness of breath [...] - Bronchodilator TID & PRN Barbara Doty RTCity HospitalWwbehr5229-34-81 18:17:28 Problem: Discharge Planning Goal: Adequate for [...] Absence of falls Outcome: Progressing as expected [facility] HospitalKiexuc0002-23-03 00:00:00 [facility]2025-04-02 00:00:00 [facility]2025-03-27 00:00:00 [facility]2025-03-25 00:00:00 [facility]2025-02-27 00:00:00 [facility]2025-02-26 00:00:00 [facility]2025-01-27 00:00:00 [facility]2025-01-15 00:00:00 [facility]2024-12-27 [facility]2024-11-20 00:00:00 [facility]2024-10-17 00:00:00 [facility]2024-10-08 00:00:00 [facility]2024-09-21 00:00:00 [facility]2024-08-28 00:00:00 [facility]2024-08-12 00:00:00 [facility]2024-07-30 00:00:00 [facility]2024-07-17 00:00:00 [facility]2024-07-11 00:00:00 [facility]2024-06-28 00:00:00 [facility]2024-06-12 00:00:00 [facility]2024-05-28 00:00:00 [facility]2024-04-23 00:00:00 [facility]2024-04-10 08:57:37 TRANSITIONAL CARE MANAGEMENT ASSESSMENT 05/22/2023 Charito Quiñonez [id number] Charito Quiñonez is a 58 year old Black or female was admitted on 05/16/23 to [facility]. She was [...] mg twice daily No linked episodes TCM Avw-lyzk-rz-face outreach documentation: CM made follow up call to patient post-discharge. Phone rings with no answer and no voicemail. Two attempts made to reach patient. Discharge Assessment Chart Assessed: 05/22/23 TCM Outreach Completed: 05/22/23 Future Appointments: Lj Paredes [facility] ProvidenceIscteo0079-21-05 14:20:10 CM made follow up call to patient post-discharge. No answer and no voicemail. [facility]2024-04-08 15:49:35 Problem: Pain Goal: Control of pain [...] for discharge Pedro Pablo Rios [facility] ProvidenceMihgcw5049-97-98 13:54:10 Problem: Pain Goal: Control of pain [...] as expected T Valeria Tyler [facility] ProvidenceGzzmrx1379-23-15 23:51:17 Problem: Pain Goal: Control of pain [...] Progressing as expected Marisela Bañuelos [facility] ProvidenceYvifzp3061-39-71 12:43:53 Problem: Pain Goal: Control of pain [...] Adequate for discharge Outcome: Progressing as expected [facility]2024-04-06 13:44:06 Problem: Pain Goal: Control of pain [...] Adequate for discharge Outcome: Progressing as expected [facility]2024-04-06 06:26:57 Problem: Pain Goal: Control of pain [...] Adequate for discharge Outcome: Progressing as expected [facility]2024-04-06 01:04:[address] Rosario about pt having generalized wheezing and would benefit from IV steroids, waiting for response. Will continue to monitor. [facility][NOTE 3] Argentina Chambers [facility] ProvidenceHjfrsp2948-72-99 17:16:46 Problem: Pain Goal: Control of pain [...] Molly Pond RN Outcome: Progressing as expected [facility]2024-04-04 21:20:00 Problem: Pain Goal: Control of pain [...] Adequate for discharge Outcome: Progressing as expected [facility][NOTE 3] Hanny Moran [facility] ProvidencePwkknx5609-79-37 16:51:01 Problem: Pain Goal: Control of pain [...] Adequate for discharge Outcome: Progressing as expected [facility]2024-04-04 15:24:48 Report given to HALLE Barneslaw office manager Audrey Hitchcock [facility] ProvidenceAsbtol9541-61-14 12:06:08 Patient states that she feels short of breath. Fortino Morales [facility] ProvidenceWqjbuf1587-29-70 12:04:19 Patients states "I have a cold, I have a cough and it hurts in my back up to my head. And I am chaffed between my legs. I need some antibiotics." Patients respirations are labored with accessory muscle usage, oxygen saturation 82% on room air. [facility]Lfyhqn0529-74-81 12:34:58 PT D/C home. GCS15, VS stable, no ataxia noted. Given two prescriptions and D/C paperwork. S/S relieved at this time. Pt ambulatory at time of discharge. Pt educated on leg pain, med usage, follow up care, s/s worsening condition. Pt verbalized understanding. HER EDUCATION INSTRUCTOR Susan Valdez [facility] ProvidencePqdzmh3183-34-52 10:40:01 Patient here for pain in the left leg, states after she walks she gets tired fast; rash on her back and needs a refill on her albuterol inhaler. HER EDUCATION INSTRUCTOR Fortino Morales [place] 325873-08-07 14:30:17 Pt given printed and verbal discharge [...] no apparent distress, Dayna Babcock [facility] ProvidenceTluvvb4568-48-03 11:41:55 Pt arrived via transit bus with c/o back pain s/p fall 1 week ago. States she has not medicated forthe pain. Pt is also requesting refills of her nasal spray and inhaler. Rosalia Burton [facility]
[2024-11-21] MEDS ORDERED: HYDRALAZINE HCL 20 MG/ML VIAL IV PRN (13:29)
[2024-11-21] MEDS ORDERED: ALBUTEROL 2.5 MG/3 ML NEB SOL NEB PRN (13:29)
[2024-11-21] MEDS ORDERED: ACETAMINOPHEN 500 MG TAB PO PRN (13:29)
[2024-11-21] MEDS ORDERED: IPRATROPIUM BROM 0.5MG/2.5ML NEB PRN (13:29)
[2024-11-21] MEDS ORDERED: ONDANSETRON 4 MG/2 ML VIAL IV PRN (13:29)
--- NOTE | 2024-11-21 13:37 | P.HP ---
Certification for Inpatient Patient admitted to: Inpatient With expected LOS: >2 Midnights Patient will require the following post-hospital care: None Practitioner: I am a practitioner with admitting privileges, knowledge of patient current condition, hospital course, and medical plan of care. Services: Services provided to patient in accordance with Admission requirements found in Title 42 Section 412.3 of the Code of Federal Regulations Patient History Date of Service: 11/21/24 Reason for admission: Shortness of breath History of Present Illness: Patient is a 59yo who was admitted to the hospital with shortness of breath. Allergies No Known Drug Allergies Allergy (Verified 03/20/24 23:01) Unknown Home Medications: Nystatin 5 ml PO QID PRN 01/11/18 ALPRAZolam [Xanax*] 1 mg PO TID #90 tab 02/22/24 Albuterol Neb [Proventil 0.083% Neb Soln] 1.25 mg NEB DAILY 30 Days #30 amp 03/21/24 Amitriptyline HCl 100 mg PO BEDTIME 30 Days #30 tab 03/21/24 Atorvastatin Calcium [Lipitor] 40 mg PO BEDTIME 30 Days #30 tab 03/21/24 Gabapentin 100 mg PO TID #90 03/21/24 Ipratropium Neb [Atrovent*] 0.5 mg NEB DAILY 30 Days #30 amp 03/21/24 Nebulizer Accessories [Adult Aerosol Mask] 1 each MC DAILY 30 Days #1 ea 03/21/24 Nebulizer and Compressor [[place] Nebulizer] 1 each MC DAILY 30 Days #1 ea 03/21/24 Amlodipine [Norvasc*] 10 mg PO DAILY #30 tab 04/17/24 Aspirin Chewable [Aspirin Chewable*] 1 tab PO DAILY 04/17/24 Baclofen 5 mg PO BID 04/17/24 Bictegrav/Emtricit/Tenofov Ala [Biktarvy 50-200-25 mg Tablet] 1 tab PO DAILY 04/17/24 Doxepin HCl [Sinequan*] 10 mg PO BEDTIME 04/17/24 Duloxetine HCl 60 mg PO 04/17/24 Fluticasone/Umeclidin/Vilanter [Trelegy Ellipta 200-62.5-25] 1 puff PO DAILY 04/17/24 Hydrocodone 7.5/APAP 325 [[place] 7.5/325 mg*] 1 tab PO Q12H PRN #30 tab 04/17/24 Melatonin 10 mg PO BEDTIME PRN PRN #30 cap 04/17/24 Metoprolol Tartrate [Lopressor*] 25 mg PO BID #60 tab 04/17/24 Zolpidem Tartrate [Ambien] 5 mg PO BEDTIME PRN PRN #20 tab 04/17/24 Furosemide [Lasix*] 20 mg PO DAILY #30 tab 06/24/24 Sildenafil Citrate [Revatio*] 20 mg PO BID #60 tab 06/24/24 Spironolactone [Aldactone*] 25 mg PO BID #60 tab 06/24/24 predniSONE [Prednisone*] 40 mg PO DAILY #5 tab 06/24/24 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 moist/pink, EOMI, Sclerae nonicteric Neck: Supple, 2+ carotid pulse no bruit, No LAD, Without JVD or thyroid abnormality Respiratory: Clear to auscultation bilaterally, Normal air movement Cardiovascular: Regular rate/rhythm, Normal S1 S2 Gastrointestinal: Normal bowel sounds, No tenderness Musculoskeletal: No tenderness Integumentary: No rashes Neurological: Normal gait, Normal speech, Normal strength at 5/5 x4 extr, Normal tone, Normal affect Lymphatics: No axilla or inguinal lymphadenopathy - Studies Laboratory Data (last 24 hrs) 11/21/24 11/21/24 11/21/24 10:15 10:15 10:15 WBC 5.10 Hgb 14.0 Hct 43.0 Plt Count 247 PT 13.4 H INR 1.19 APTT 33.2 Sodium 143 Potassium 3.4 L BUN 24 H Creatinine 1.50 H Glucose 106 Total Bilirubin 1.0 AST 17 ALT 21 Alkaline Phosphatase 95 Assessment & Plan - Problems (Diagnosis) (1) Acute hypoxic respiratory failure Current Visit: No Status: Acute (2) Chronic diastolic heart failure Current Visit: No Status: Acute (3) CAD (coronary artery disease), [place] coronary artery Current Visit: No Status: Acute (4) HIV (human immunodeficiency virus infection) Onset Date: 01/18/16 Current Visit: No Status: Acute (5) HTN (hypertension) Onset Date: 01/18/16 Current Visit: No Status: Acute (6) Syncope Current Visit: No Status: Acute Discharge Plan: Home Plan to discharge in: Greater than 2 days - Advance Directives Does patient have a Living Will: No Does patient have a Durable POA for Healthcare: No - Code Status/Comfort Care Code Status Assessed: Yes Code Status: Full Code Critical Care: No Time Spent Managing PTS Care (In Minutes): 45
[2024-11-21] MEDS: METHYLPREDNISOLONE 40 MG INJ IV ONE (13:53)
[2024-11-21 15:01] VITALS: BMI 19.7
[2024-11-21] MEDS: METHYLPREDNISOLONE 40 MG INJ IV SCH (18:13)
[2024-11-21] MEDS: FUROSEMIDE 40 MG/4 ML VIAL IV SCH (18:13)
[2024-11-21] MEDS: METOPROLOL TAR 25 MG TAB PO SCH (18:13)
[2024-11-21] MEDS: MORPHINE 4 MG/ML SYR IV PRN (18:17)
[2024-11-21] MEDS: BACLOFEN 10 MG TAB PO SCH (20:50)
[2024-11-21] MEDS: ATORVASTATIN 40 MG TAB PO SCH (20:50)
[2024-11-21] MEDS: LOSARTAN POTASSIUM 50 MG TABLET PO SCH (20:51)
[2024-11-21] MEDS: TRAZODONE 50 MG TABLET PO SCH (20:51)
[2024-11-21] MEDS ORDERED: METOPROLOL TAR 25 MG TAB PO SCH (21:00)
[2024-11-21] MEDS ORDERED: ATORVASTATIN 40 MG TAB PO SCH (21:00)
[2024-11-22 05:45] LABS: Absolute Lymphocytes (CBC) 0.3 K/uL (0.7-4.9); Hematocrit 37.6 % (36.0-45.0); Hemoglobin 12.3 g/dL (12.0-15.0); MCH 32.1 pg (27.0-35.0); MCHC 32.7 g/dL (32.0-36.0); MCV 98.2 fL (80-100); MPV 9.2 fL (7.6-11.3); Nucleated RBC Absolute Count 0.0 (0-0); Nucleated Red Blood Cells % 0.0 % (0-0); RBC Red Blood Cell Count 3.82 M/uL (3.86-4.86); White Blood Count 6.00 thou/uL (4.3-10.9)
[2024-11-22 05:56] LABS: PT Prothrombin Time 13.1 SECONDS (10-13.0); PTT, Activated Partial Thromb 30.1 SECONDS (27.2-37.4); Protime INR 1.16
[2024-11-22 06:10] LABS: ALT/SGPT 19.0 U/L (13-56); AST/SGOT 14.0 U/L (15-37); Albumin 3.1 g/dL (3.4-5.0); Albumin/Globulin Ratio 0.6 (1.1-1.8); Alkaline Phosphatase 81.0 U/L (45-117); Anion Gap 11.7 mEq/L (5.0-15.0); BUN Blood Urea Nitrogen 37.0 mg/dL (7-18); Globulin 4.8 g/dL (2.3-3.5); Glucose Level 163.0 mg/dL (74-106); HDL Cholesterol 113.0 mg/dL (40-60); LDL Cholesterol, Calculated 44.0 mg/dL (<130); LDL Cholesterol,Calc NonReport 44.0; Potassium 3.7 mEq/L (3.5-5.1)
[2024-11-22 06:13] LABS: Troponin High Sensitivity 154.1 pg/mL (<58.9)
[2024-11-22] MEDS: [UNRECOGNIZED DRUG - OTHER] PO SCH (08:00)
[2024-11-22] MEDS: AMLODIPINE 10 MG TAB PO SCH (08:00)
[2024-11-22 08:51] VITALS: TEMP 98
[2024-11-22 08:57] LABS: Differential Total Cells Count 100; Segmented Neutrophils 92 % (40-80)
[2024-11-22 08:58] LABS: Blood Morphology Comment NOT SEEN (NOT SEEN)
[2024-11-22] MEDS: ENOXAPARIN 40 MG/0.4 ML SQ SCH (09:00)
[2024-11-22] MEDS: ASPIRIN EC 81 MG TAB PO SCH (10:07)
[2024-11-22] MEDS: [UNRECOGNIZED DRUG - OTHER] PO SCH (10:26)
[2024-11-22 12:18] VITALS: O2SAT 98
[2024-11-22 14:26] VITALS: BP 109/55
[2024-11-23] MEDS ORDERED: ENOXAPARIN 30 MG/0.3 ML SQ SCH (09:00)
[2024-11-23] MEDS ORDERED: [UNRECOGNIZED DRUG - OTHER] PO SCH (09:43)
== END 2024-11-22 16:25 | disposition home or self-care (01) | DRG 291 ==
LOC: ER 09:28 → ERHOLD 13:29 → 2ND 14:02
PROVIDERS: ADMIT Hospitalist; ATTEND Hospitalist
DX: I11.0 Hypertensive heart disease with heart failure (principal); I50.33 Acute on chronic diastolic (congestive) heart failure; J96.01 Acute respiratory failure with hypoxia; J44.1 Chronic obstructive pulmonary disease with (acute) exacerbation; I25.10 Atherosclerotic heart disease of native coronary artery without angina pectoris; Z21 Asymptomatic human immunodeficiency virus [HIV] infection status; Z60.2 Problems related to living alone; Z79.82 Long term (current) use of aspirin; Z11.52 Encounter for screening for COVID-19; Z79.52 Long term (current) use of systemic steroids; Z79.899 Other long term (current) drug therapy; Z90.710 Acquired absence of both cervix and uterus
CPT/HCPCS: 36415; 71045; 80053; 80061; 83605; 83880; 84484; 85025; 85610; 85730; 87040; 87428; 93005; 96374; 99285; J1650; J1938; J2919; J7614